=== PATIENT | male | born 1955 | race Caucasian/White ===

== ENCOUNTER 2020-03-27 16:43 | Inpatient (IN) | payer MEDICARE, SELFPAY ==
[2020-03-27] VITALS (11 sets, daily range): BP systolic 111–159; BP diastolic 52–80; PULSE 65–137; RESP 16–20; TEMP 37.5–38.3; O2SAT 93–98; BMI 40.6; BMI 37.2
--- NOTE | 2020-03-27 16:55 | XR_ITS ---
PROCEDURE: XR CHEST PORTABLE CLINICAL HISTORY: weakness COMPARISON: Chest from 04/22/2019 FINDINGS: The cardiomediastinal silhouette and pulmonary vascularity are within normal limits. The lungs are clear without infiltrates, suspicious nodules, or pleural effusions. No acute bony abnormalities. IMPRESSION: No acute findings. Dictated by: Jaspreet Leonard MD 03/28/2020 05:27 Electronically signed by Jaspreet Leonard MD in [place] 03/28/2020 05:27
[2020-03-27 17:16] LABS: Basophils % 0.2 % (0.1-2.0); Chloride 102 mmol/L (98-107); Eosinophils % 0.4 % (0.1-12.0); Hematocrit 36.2 % (42.0-52.0); Hemoglobin 12.2 g/dL (14.1-18.0); Lymphocytes # 0.8 K/mm3 (0.7-4.5); Mean Corpuscular HGB Conc 33.7 g/dL (31.8-35.4); Mean Corpuscular Hemoglobin 27.8 pg (27.0-31.2); Mean Corpuscular Volume 82.4 fl (80-94); Mean Platelet Volume 7.7 fl (7.4-10.4); Monocytes # 0.4 K/mm3 (0.1-1.0); Monocytes % 4.4 % (1.7-9.3); Neutrophils # 7.9 K/mm3 (1.8-7.8); Platelet Count 276 K/mm3 (142-424); Potassium 4.8 mmoL/L (3.5-5.1); Red Blood Count 4.39 M/mm3 (4.60-6.20); Red Cell Distribution Width 14.5 % (11.5-17.5); Sodium 135 mmol/L (136-145); White Blood Count 9.2 K/mm3 (4.8-10.8)
[2020-03-27 17:18] LABS: MANUAL DIFFERENTIAL MANUAL DIFFERENTIAL (MANUAL DIFF)
[2020-03-27 17:19] LABS: Alanine Aminotransferase 17 U/L (12-78); Albumin/Globulin Ratio 1.2 (1.1-1.8); Alkaline Phosphatase 91 U/L (38-126); Anion Gap 17.8 mEq/L (5-15); Aspartate Amino Transferase 22 U/L (17-59); Bilirubin,Total 0.5 mg/dl (0.2-1.3); Blood Urea Nitrogen 30 mg/dl (9-20); Calcium 9.5 mg/dl (8.4-10.2); Carbon Dioxide 20 mmol/L (22.0-30.0); Creatinine Clearance Estimated 140 mL/min (50-200); Estimated Glomerular Filt Rate 84 ml/min (>60); GFR (African American) 102 ML/MIN (>60); Globulin 3.4 g/dL (1.3-3.2); Glucose 170 mg/dl (74-100); Lactic Acid 1.1 mmol/L (0.7-2.1); Total Protein,Serum 7.4 g/dl (6.3-8.2)
[2020-03-27 17:32] LABS: Lymphocytes % 9 % (10-50); Monocytes % 7 % (2-9); Neutrophils % 84 % (42-76); Platelet Estimate Normal; Total Cells Counted 100; Troponin I < 0.01 ng/ml (0.00-0.034)
[2020-03-27 17:33] LABS: RBC Morphology Normal
--- NOTE | 2020-03-27 17:38 | PC.NURSE ---
Spoke with his cousin who helps take care of him and advises she doesn't know for sure what medicines thinks he may have a blood pressure medicine, diabetes medicine, possibly a fluid pill, and something for seizures. She also advises all the pills at his house were laying and he hasn't bee ntaking them. Pt doesn't know what he takes and doesn't know when the last time he took any medicines.
--- NOTE | 2020-03-27 17:54 | ECG_ITS ---
APPROVED REPORT Exam: Resting ECG HR:142 bpm ECG Measurements Heart Rate 142 AXES AR 116 P 52 QRSd 88 QRS 90 QT 330 T 76 QTc 507 <Conclusion> Sinus tachycardia with occasional premature ventricular complexes and fusion complexes Rightward axis Nonspecific ST abnormality Abnormal ECG Electronically signed by : Gustavo Leggett, 03/29/2020 17:08:20
--- NOTE | 2020-03-27 18:14 | PC.NURSE ---
V/S delayed due to pt removing his monitors repeatedly
--- NOTE | 2020-03-27 18:28 | ECG_ITS ---
APPROVED REPORT Exam: Resting ECG HR:135 bpm ECG Measurements Heart Rate 135 AXES OH 118 P 55 QRSd 110 QRS 46 QT 296 T 11 QTc 444 <Conclusion> Ventricular bigeminy Inferior infarct, age undetermined Abnormal ECG Electronically signed by : Gustavo Leggett, 03/29/2020 17:08:08
--- NOTE | 2020-03-27 18:31 | CT_ITS ---
PROCEDURE: CT ANGIO CHEST CLINCIAL INDICATION: SOB, Irregular heart rate COMPARISON: No exams were available for comparison TECHNIQUE: IV Contrast: 70ML OPTIRAY 350 Axial images obtained with sagittal and coronal reformats. All CT scans at the facility use one or more dose reduction, viz: automated exposure control, ma/kV adjustment per patient size (including targeted exams where dose is matched to indication, i.e. head), or iterative reconstruction technique. FINDINGS: HEART AND MEDIASTINAL STRUCTURES: Extensive coronary artery calcification. No evidence of pulmonary embolus or aortic aneurysm or dissection. The LUNGS AND PLEURAL SPACES: Patchy ground-glass opacity involves the posterior aspect of the left upper lobe posteriorly and could represent an area of scarring or small area of pneumonitis. BONY STRUCTURES: Degenerative changes thoracic spine with bridging osteophytes in the lower thoracic spine UPPER ABDOMEN: Unremarkable. ADDITIONAL FINDINGS: No other significant abnormalities. IMPRESSION: 1. No evidence of pulmonary embolus. 2. Patchy ground-glass density left upper lobe which could be due to small area of scarring or infiltrate. Dictated by: Jaspreet Leonard MD 03/28/2020 08:04 Electronically signed by Jaspreet Leonard MD in [place] 03/28/2020 08:04
--- NOTE | 2020-03-27 18:35 | PC.NURSE ---
EKG sent to Dr Thapa per Dr Santana request. Dr Thapa responds that it is not a stemi
--- NOTE | 2020-03-27 18:38 | PC.NURSE ---
Pt to rad.
--- NOTE | 2020-03-27 18:50 | PC.NURSE ---
speaking with Dr. Thapa
[2020-03-27 19:06] LABS: ABG Base Excess -7.5 mmol/L (-2.4-2.3); ABG HCO3 17.1 mmhg (22.0-26.0); ABG Oxygen Saturation 96 % (90-100); ABG PCO2 27.3 mmhg (35.0-45.0); ABG PH 7.41 mmol/L (7.35-7.45); ABG PO2 83.3 mmhg (80-100); ABG TCO2 17.9 mmhg (23-27)
[2020-03-27 19:09] LABS: Allen's Test Acceptable; Oxygen room air %; Source Right Radial
[2020-03-27 19:14] LABS: Microscopic, Urine URINE MICROSCOPIC (MICROSCOPIC)
[2020-03-27 19:16] LABS: Appearance,Urine CLEAR (Clear); Bilirubin,Urine Negative (Negative); Blood, Urine Negative (Negative); Color,Urine YELLOW (Yellow); Glucose,Urine (UA) Negative (Negative); Ketones,Urine Negative (Negative); Leukocyte Esterase,Urine Negative (Negative); Nitrate,Urine Negative (Negative); PH,Urine 5.5 (5.0-8.5); Protein,Urine Negative (Negative); Specific Gravity, Urine 1.025 (1.005-1.030); Urobilinogen,Urine 0.2 EU/dl (0.2)
[2020-03-27 19:19] LABS: NT Pro Brain Natriuretic Pep. 515 pg/mL (0-125)
--- NOTE | 2020-03-27 19:40 | HMH.EDWEAK ---
ED Disposition Clinical Impression: Atrial flutter, Uncontrolled diabetes mellitus, Cellulitis, SIRS (systemic inflammatory response syndrome), Fever, Fatigue, Malaise Disposition: Admitted as Observation Condition on Discharge: Good Referrals: John Paul Orellana [Primary Care Provider] - - Critical Care Critical Care Time: No Attestation: On 03/27/20, the high probability of a clinically significant, sudden or life threatening deterioration of the following system(s) required my full and direct attention, intervention and personal management. The time I documented below is in addition to time spent performing reported procedures but includes the following listed in this critical care notation. Medical Decision Making - Medical Records Medical records reviewed: Yes: I reviewed the patient's medical records. - Lex Inquiry Pt receiving controlled substance: No Vital Signs: 03/27/20 16:46 03/27/20 18:17 03/27/20 18:29 Temperature 101.0 F H Temperature Source Rectal Pulse Rate [Right] 65 137 H 136 H Respiratory Rate 16 Blood Pressure [Right Arm] 158/75 H 143/80 H 159/75 H Blood Pressure Mean [Right Arm] 102 101 103 Blood Pressure Source [Right Arm] Automatic Cuff Automatic Cuff Automatic Cuff Blood Pressure Position [Right Arm] Sitting Sitting Sitting 02 Sat by Pulse Oximetry 98 93 L 98 Oxygen Delivery Method Room Air Room Air Room Air 03/27/20 19:54 Temperature Temperature Source Pulse Rate [Right] 104 H Respiratory Rate 16 Blood Pressure [Right Arm] 116/70 Blood Pressure Mean [Right Arm] 85 Blood Pressure Source [Right Arm] Automatic Cuff Blood Pressure Position [Right Arm] Sitting 02 Sat by Pulse Oximetry 95 Oxygen Delivery Method Room Air - Lab Data Lab results reviewed: Yes: I reviewed the patient's lab results. Lab Results 03/27/20 17:00: WBC 9.2, RBC 4.39 L, Hgb 12.2 L, Hct 36.2 L, MCV 82.4, MCH 27.8, MCHC 33.7, RDW 14.5, Plt Count 276, MPV 7.7, Neut % (Auto) 86.0 H, Lymph % (Auto) 9.0 L, [place] % (Auto) 4.4, Eos % (Auto) 0.4, Baso % (Auto) 0.2, Neut # (Auto) 7.9 H, Lymph # (Auto) 0.8, [place] # (Auto) 0.4, Eos # (Auto) 0.0, Baso # (Auto) 0.0, Total Counted 100, Neutrophils % (Manual) 84 H, Lymphocytes % (Manual) 9 L, Monocytes % (Manual) 7, Platelet Estimate Normal, RBC Morphology Normal 03/27/20 17:00: Sodium 135 L, Potassium 4.8, Chloride 102, Carbon Dioxide 20 L, Anion Gap 17.8 H, BUN 30 H, Creatinine 0.90, Estimated Creat Clear 140, Estimated GFR 84, Est GFR ( Amer) 102, Glucose 170 H, Calcium 9.5, Total Bilirubin 0.5, AST 22, ALT 17, Alkaline Phosphatase 91, Troponin I < 0.01, Total Protein 7.4, Albumin 4.0, Globulin 3.4 H, Albumin/Globulin Ratio 1.2 03/27/20 17:00: Lactate 1.1 03/27/20 17:00: NT-Pro-B Natriuret Pep 515 H 03/27/20 18:48: Specimen Source Right radial, O2 % room air, ABG pH 7.41, ABG pCO2 27.3 L, ABG pO2 83.3, ABG HCO3 17.1 L, ABG Total CO2 17.9 L, ABG O2 Saturation 96, ABG Base Excess -7.5 L, Jaspreet Test Acceptable 03/27/20 19:05: Urine Color Yellow, Urine Appearance Clear, Urine pH 5.5, Ur Specific [place] 1.025, Urine Protein Negative, Urine Glucose (UA) Negative, Urine Ketones Negative, Urine Blood Negative, Urine Nitrate Negative, Urine Bilirubin Negative, Urine Urobilinogen 0.2, Ur Leukocyte Esterase Negative, Urine RBC None, Urine WBC 3-5, Ur Squamous Epith Cells Occasional, Urine Bacteria Trace Result diagrams: 03/27/20 17:00 03/27/20 17:00 Orders (Tests/Meds): ED MEDICATIONS Generic Name Dose Route Start Last Admin Trade Name Freq PRN Reason Stop Dose Admin Sodium Chloride 1,000 mls @ 999 mls/hr 03/27/20 17:45 03/27/20 17:46 Sod Chlor 0.9% 1000ml Bag IV 03/27/20 18:45 999 mls/hr .Q1H1M DEEPTI Administration Piperacillin Sod/Tazobactam 50 mls @ 100 mls/hr 03/27/20 19:00 03/27/20 19:20 Sod 3.375 gm/ Sodium Chloride IV 04/10/20 18:59 100 mls/hr Q8H DEEPTI Administration Protocol Sodium Chloride 10 ml 03/27/20 18:31 Sodium Chloride 0.9% 10
[2020-03-27 19:58] LABS: Bacteria,Urine Trace /lpf; Squamous Epithelial Cell,Urine Occasional #/hpf (0-5)
--- NOTE | 2020-03-27 20:07 | PC.NURSE ---
Awaiting covid results for pt admission.
--- NOTE | 2020-03-27 20:08 | PC.NURSE ---
spoke with calixto for pt admisison details
[2020-03-27 20:20] LABS: Adenovirus,PCR Not Detected (NotDetected); Bordetella Pertussis Not Detected (NotDetected); Chlamydophila Pneumoniae, PCR Not Detected (NotDetected); Coronavirus 19, PCR Not Detected (NotDetected); Coronavirus 229E Not Detected (NotDetected); Coronavirus NL63 Not Detected (NotDetected); Coronavirus OC43 Not Detected (NotDetected); Coronovirus HKU1,PCR Not Detected (NotDetected); Human Metapneumovirus Not Detected (NotDetected); Influenza A, PCR Not Detected (NotDetected); Influenza AH1, 2009 Not Detected (NotDetected); Influenza AH1, PCR Not Detected (NotDetected); Influenza AH3,PCR Not Detected (NotDetected); Influenza B, PCR Not Detected (NotDetected); Mycoplasma Pneumoniae, PCR Not Detected (NotDected); Parainfluenza 1, PCR Not Detected (NotDetected); Parainfluenza 2, PCR Not Detected (NotDetected); Parainfluenza 3, PCR Not Detected (NotDetected); Parainfluenza 4, PCR Not Detected (NotDetected); Respiratory Syncytial Virus Not Detected (NotDetected); Rhinovirus/Enterovirus Not Detected (NotDetected)
[2020-03-27 20:47] LABS: Hemoglobin A1C 7.2 % (4.0-6.0)
[2020-03-27 20:50] LABS: Troponin I < 0.01 ng/ml (0.00-0.034)
--- NOTE | 2020-03-27 22:28 | PC.NURSE ---
Pt's contact is Yaa Thornton Password is Amna
--- NOTE | 2020-03-27 22:37 | PC.NURSE ---
Pt confused and pulled left AC IV out disconnected all his lines and was attempting to get out of bed.
--- NOTE | 2020-03-27 22:58 | PC.NURSE ---
pt arrived from ed via stretcher
--- NOTE | 2020-03-27 23:36 | HMH.HP ---
*Admission Date: 03/27/20 *Chief complaint: fever *History of present illness: this pt presented to [facility] ed - -year-old male comes in complaining of some generalized weakness and fatigue for the last 7 days however patient does state he has felt weak and fatigue since last April. Patient does state with his new onset of weakness has been about 7 days. He states he does not have any pain anywhere except his lower extremities where he does have some mild erythema of the lower extremities with some sores that are healing. Patient cannot remember what meds he is taking or what his real medical history is. Patient is alert and oriented x4 however he is noncompliant with medications. Patient does not complain of any chest pain nor shortness of breath. But patient does complain of fever shakes and chills and does complain of fatigue. Patient denies any recent sore throat or headache. Patient denies any loss of smell or taste. Patient does have nausea with one episode of vomiting.pt with prob a flutter with pvc and was admitted with ivf and abx - [facility] History I have reviewed the patient's past medical history: Yes Medical History: Reports:: Diabetes Mellitus Type 2 *Have you ever received a pneumonia vaccine?: No *Have you received a flu vaccine this season?: No - *Social History Alcohol Intake: never *Occupational Status:: unemployed *Travel in the last 8 weeks: None Family Hx:: No significant family history Review of Systems - Review of Systems Review of systems:: pertinent systems reviewed and negative unless documented below - Constitutional Reports fever(s) - Eyes Denies change in vision - ENT Denies sore throat - *Cardiovascular Reports fast heart rate, Denies chest pain at rest, Denies shortness of breath - *Respiratory Denies cough - *Gastrointestinal Denies abdominal pain - *Genitourinary Denies blood in urine - *Musculoskeletal Denies joint pain - Integumentary/Breasts Denies rash, Denies other (changes to lower ext ) - *Neurologic Denies localized weakness, Denies seizure-like activity - Psychiatric Denies anxiety Meds Home Medications Medication Instructions Recorded Confirmed Type Amlodipine Besylate 10 mg PO DAILY 04/22/19 03/27/20 History Aspirin [Aspirin 81mg EC Tab] 81 mg PO DAILY 04/22/19 03/27/20 History Atorvastatin Calcium [Atorvastatin 40 mg PO HS 04/22/19 03/27/20 History 40mg Tab] Benazepril HCl 40 mg PO DAILY 04/22/19 03/27/20 History Ibuprofen [Ibuprofen 800mg 800 mg PO TIDP PRN 04/22/19 03/27/20 History Tablet] Metformin HCl [Metformin 1000mg 1,000 mg PO BID 04/22/19 03/27/20 History Tablets] lamoTRIgine [Lamotrigine] 200 mg PO BID 04/22/19 03/27/20 History Baclofen 20 mg PO DAILY 03/27/20 03/27/20 History Furosemide [Furosemide 40MG tAB] 40 mg PO DAILY 03/27/20 03/27/20 History Metoprolol Succinate [Metoprolol 25 mg PO DAILY 03/27/20 03/27/20 History Succinate 25mg Tablet*] diazePAM [diazePAM 5mg Tablet] 5 mg PO BID 03/27/20 03/27/20 History glipiZIDE [Glipizide] 10 mg PO BID 03/27/20 03/27/20 History ondansetron HCL [Ondansetron HCl] 4 mg PO NEEDED PRN 03/27/20 03/27/20 History Allergies Allergy/AdvReac Type Severity Reaction Status Date / Time acetaminophen [From LORTAB] Allergy Unknown NA-NAUSEA/V Verified 04/22/19 20:53 OMITING hydrocodone [From LORTAB] Allergy Unknown NA-NAUSEA/V Verified 04/22/19 20:53 OMITING Exam Vital signs and Labs for Last 24 Hours: Temp Pulse Resp BP Pulse Ox 100.6 F H 126 H 20 123/52 L 97 03/27/20 22:58 03/27/20 22:58 03/27/20 22:58 03/27/20 22:58 03/27/20 22:58 Laboratory Results - last 24 hr 03/27/20 17:00: WBC 9.2, RBC 4.39 L, Hgb 12.2 L, Hct 36.2 L, MCV 82.4, MCH 27.8, MCHC 33.7, RDW 14.5, Plt Count 276, MPV 7.7, Neut % (Auto) 86.0 H, Lymph % (Auto) 9.0 L, [place] % (Auto) 4.4, Eos % (Auto) 0.4, Baso % (Auto) 0.2, Neut # (Auto) 7.9 H, Lymph # (Auto) 0.8, [place] # (Auto) 0.4
[2020-03-27 23:56] LABS: Troponin I < 0.01 ng/ml (0.00-0.034)
[2020-03-28] VITALS (9 sets, daily range): BP systolic 136–144; BP diastolic 71–77; PULSE 70–110; RESP 18–20; TEMP 36.8–37.1; O2SAT 97–99; BMI 37.0
--- NOTE | 2020-03-28 03:55 | PC.NURSE ---
Pt arrived to the floor at [id number]. Pt unable to answer questions regarding home medications. Pt stated I don't know what I take. and I can't remember the last time I took everything. Medication list compiled from ER used. Pt complained of pain from the knees down x1 this shift. MD Fields notified of pt's complaint, MD advised to give PRN Acetaminophen. In pt's allergy list Acetaminophen is listed due to adverse reactions to lortab. MD was aware and stated it was fine to give pt the PRN acetaminophen. Multiple scabs and lesions on bilateral LE noted. Pictures and photo consent form are in pt's chart. Pt is currently in bed, sleeping. Call light is within reach, seizure pads in place with no seizure activity noted. No complaints at this time, will continue to monitor.
[2020-03-28 05:38] LABS: POC Glucose,Bedside 162 (70-110)
[2020-03-28 06:28] LABS: Basophils % 0.4 % (0.1-2.0); Eosinophils % 0.3 % (0.1-12.0); Hematocrit 36.7 % (42.0-52.0); Hemoglobin 12.3 g/dL (14.1-18.0); Lymphocytes # 0.9 K/mm3 (0.7-4.5); Lymphocytes % 10.7 % (10-50); Mean Corpuscular HGB Conc 33.4 g/dL (31.8-35.4); Mean Corpuscular Hemoglobin 28.1 pg (27.0-31.2); Mean Platelet Volume 8.1 fl (7.4-10.4); Monocytes # 0.4 K/mm3 (0.1-1.0); Monocytes % 5.2 % (1.7-9.3); Neutrophils % 83.4 % (37.0-80.0); Platelet Count 222 K/mm3 (142-424); Red Blood Count 4.37 M/mm3 (4.60-6.20); Red Cell Distribution Width 14.7 % (11.5-17.5); White Blood Count 8.4 K/mm3 (4.8-10.8)
[2020-03-28 06:30] LABS: Blood Urea Nitrogen 24 mg/dl (9-20); Calcium 9.1 mg/dl (8.4-10.2); Carbon Dioxide 22 mmol/L (22.0-30.0); Chloride 105 mmol/L (98-107); Chol/HDL Ratio 3.5 (1-3.5); Cholesterol 137 mg/dl (140-200); Creatinine Clearance Estimated 128 mL/min (50-200); Estimated Glomerular Filt Rate 97 ml/min (>60); GFR (African American) 117 ML/MIN (>60); Glucose 162 mg/dl (74-100); HDL Cholesterol 39 mg/dl (40-60); Magnesium 1.6 mg/dl (1.6-2.3); Sodium 137 mmol/L (136-145); Triglycerides 107 mg/dl (30-150); VLDL Cholesterol 21 mg/dL (0-40)
[2020-03-28 06:40] LABS: Direct LDL Cholesterol 69.92 mg/dL (100-129)
--- NOTE | 2020-03-28 06:48 | HMH.PHAVTE ---
[facility] Pharmacy VTE Monitoring - Patient Demographics Admission date: 03/27/20 Report Date: 03/28/20 Time: 06:48 Allergies/Adverse Reactions: Patient Allergies acetaminophen [From LORTAB] Allergy (Unknown, Verified 04/22/19 20:53) NA-NAUSEA/VOMITING hydrocodone [From LORTAB] Allergy (Unknown, Verified 04/22/19 20:53) NA-NAUSEA/VOMITING Height: 1.83 m Weight: 124.2 kg Patient Problems: Current Active Problems Atrial flutter (Acute) Uncontrolled diabetes mellitus (Acute) Cellulitis (Acute) SIRS (systemic inflammatory response syndrome) (Acute) Fever (Acute) Fatigue (Acute) Malaise (Acute) Acute febrile illness (Acute) Diabetes mellitus (Acute) - VTE Risk Labs: VTE Related Lab Results Hgb 12.3 g/dL (14.1-18.0) L 03/28/20 05:56 Hct 36.7 % (42.0-52.0) L 03/28/20 05:56 Plt Count 222 K/mm3 (142-424) 03/28/20 05:56 BUN 24 mg/dl (9-20) H 03/28/20 05:56 Creatinine 0.80 mg/dl (0.66-1.25) 03/28/20 05:56 Estimated Creat Clear 128 mL/min (50-200) 03/28/20 05:56 - Prophylaxis VTE Prophylaxis Ordered?: Yes Types of VTE Prophylaxis: TEDS Knee High Location of Applied Device: Bilateral Lower Extremeties - VTE Diagnosis Confirmed Treatment or plan recommended: Continue Current Treatment
--- NOTE | 2020-03-28 07:39 | HMH.PHAINT ---
MEDICATION RECONCILIATION COMPLETED BY USING EXTERNAL FILL HISTORY
--- NOTE | 2020-03-28 08:00 | CA_ITS ---
APPROVED REPORT EXAM: Comprehensive 2D, Doppler, and color-flow Echocardiogram King Maker: Siobhan Sun CRT Ht: 6 ft 0 in Wt: 300lbs BSA: 2.53 BP: 114/75 mmHg Indications: Murmur, Atrial Fibrillation, Diabetes, Fatigue 2D Dimensions LVOT 2.04 cm (M/F) 1.5-2.5 M-Mode Dimensions RVDd 3.29 cm (0.9-2.6) LVDd 4.47 cm (3.5-5.7) LVDs 3.37 cm (3.5-5.7) IVSd 0.96 cm (0.6-1.1) PWd 1.01 cm (0.6-1.1) EF (Teich) 49.00% FS 24.60% EDV (Teich) 91.00 mL ESV (Teich) 46.40 mL LV Diastology E/A Ratio 0.72 Mitral Valve MV A Velocity 105.00 (40-130 cm/s) Left Ventricle Technically very difficult study because of the patient fact in poor acoustic windows. Left atrium is mildly enlarged, left ventricle is normal size, visually estimated ejection fraction 55% with no regional wall motion abnormality, endocardial surfaces are poorly visualized, diastolic parameters are inconclusive. Right Ventricle Right atrium and right ventricle mildly enlarged with normal contractility. Aortic Valve Aortic valve is not well visualized, Doppler of the aortic valve is not indicated above aortic stenosis or aortic insufficiency. Mitral Valve Mitral valve leaflets are minimally thickened, there is mild mitral regurgitation. Tricuspid Valve Tricuspid valve is grossly normal, there is mild tricuspid regurgitation, tricuspid regurgitation jet velocity is inadequate for calculation of the right ventricular systolic pressure. Pulmonic Valve Pulmonic valve is poorly visualized. Great Vessels Aortic root is normal size. Pericardium Trivial pericardial effusion noted. Conclusion 1. Technically very difficult study because of the patient factors and poor acoustic windows. 2. Mild biatrial enlargement, normal left ventricular size, likely preserved left ventricular systolic function, visually estimated ejection fraction 55% with no regional wall motion abnormality, endocardial surfaces are poorly visualized. 3. Mildly enlarged right ventricle with normal contractility. 4. Mild mitral and tricuspid regurgitation. 5. Trivial pericardial effusion noted. Electronically signed by : Galdino Tobin, 03/28/2020 14:11:22
--- NOTE | 2020-03-28 08:07 | HMH.CNCARD ---
History of Present Illness Consult date: 03/28/20 Requesting physician: Britton Fields Chief complaint: weakness Additional Medical History:: 1. DM 2. HTN 3. HLD 4. CAD A. History of coronary stent per patient 5. Seizure Disorder 6. A. flutter with RVR, 03/2020 History of present illness: this pt presented to [facility] ed - -year-old male comes in complaining of some generalized weakness and fatigue for the last 7 days however patient does state he has felt weak and fatigue since last April. Patient does state with his new onset of weakness has been about 7 days. He states he does not have any pain anywhere except his lower extremities where he does have some mild erythema of the lower extremities with some sores that are healing. Patient cannot remember what meds he is taking or what his real medical history is. Patient is alert and oriented x4 however he is noncompliant with medications. Patient does not complain of any chest pain nor shortness of breath. But patient does complain of fever shakes and chills and does complain of fatigue. Patient denies any recent sore throat or headache. Patient denies any loss of smell or taste. Patient does have nausea with one episode of vomiting.pt with prob a flutter with pvc and was admitted with ivf and abx The above per Dr. Fields Patient's EKG in the ER yesterday was felt to represent atrial flutter at which time the patient was given IV beta-andre therapy with improvement in rate. Patient's heart rate continues in the 100-110 range with frequent ventricular bigeminy. Patient denies any chest pain, pressure or tightness. He does relate history of ventricular arrhythmias in the past as well as coronary artery disease requiring coronary stenting. He is very poor historian regarding his medical history. He has a remote history of tobacco use discontinued 15 years ago and has been a diabetic for at least 10 years. Troponins overnight have returned normal. [facility] History Medical History: Reports:: Arrhythmia, Diabetes Mellitus Type 2, Hyperlipidemia, Hypertension *Have you ever received a pneumonia vaccine?: Yes *Have you received a flu vaccine this season?: Yes - *Social History Smoking Status: Former smoker Tobacco Type: cigarettes Smoking End Date: 03/13/2005 Alcohol Intake: former Alcohol Intake Frequency:: holidays/special occasions only Substance Use Type: marijuana Last Used Substance: days (ago) *Occupational Status:: retired *Travel in the last 8 weeks: None Family Hx:: No significant family history Meds Home Medications Medication Instructions Recorded Confirmed Type Amlodipine Besylate 10 mg PO DAILY 04/22/19 03/27/20 History Aspirin [Aspirin 81mg EC Tab] 81 mg PO DAILY 04/22/19 03/27/20 History Atorvastatin Calcium [Atorvastatin 40 mg PO HS 04/22/19 03/27/20 History 40mg Tab] Benazepril HCl 40 mg PO DAILY 04/22/19 03/27/20 History Ibuprofen [Ibuprofen 800mg 800 mg PO TIDP PRN 04/22/19 03/27/20 History Tablet] Metformin HCl [Metformin 1000mg 1,000 mg PO BID 04/22/19 03/27/20 History Tablets] lamoTRIgine [Lamotrigine] 200 mg PO BID 04/22/19 03/27/20 History Baclofen 20 mg PO TID 03/27/20 03/28/20 History Furosemide [Furosemide 40MG tAB] 40 mg PO DAILY 03/27/20 03/27/20 History Metoprolol Succinate [Metoprolol 25 mg PO DAILY 03/27/20 03/27/20 History Succinate 25mg Tablet*] diazePAM [diazePAM 5mg Tablet] 5 mg PO BID 03/27/20 03/27/20 History glipiZIDE [Glipizide] 5 mg PO BID 03/27/20 03/28/20 History Allergies Allergy/AdvReac Type Severity Reaction Status Date / Time acetaminophen [From LORTAB] Allergy Unknown NA-NAUSEA/V Verified 04/22/19 20:53 OMITING hydrocodone [From LORTAB] Allergy Unknown NA-NAUSEA/V Verified 04/22/19 20:53 OMITING Review of Systems - Review of Systems Review of systems:: pertinent systems reviewed and negative unless documented below - *Cardiovascular Reports rapid, pounding, or irregular h
--- NOTE | 2020-03-28 08:50 | HMH.ACPN2 ---
Internal Medicine - PN: Subj *Date: 03/28/20 *Time: 08:00 Interval history: Patient laying in bed states he lives alone at home. Exam Vital signs and Labs for Last 24 Hours: Temp Pulse Resp BP Pulse Ox 98.3 F 90 18 143/71 H 97 03/28/20 08:00 03/28/20 08:09 03/28/20 08:00 03/28/20 08:00 03/28/20 08:00 Laboratory Results - last 24 hr 03/27/20 17:00: WBC 9.2, RBC 4.39 L, Hgb 12.2 L, Hct 36.2 L, MCV 82.4, MCH 27.8, MCHC 33.7, RDW 14.5, Plt Count 276, MPV 7.7, Neut % (Auto) 86.0 H, Lymph % (Auto) 9.0 L, [place] % (Auto) 4.4, Eos % (Auto) 0.4, Baso % (Auto) 0.2, Neut # (Auto) 7.9 H, Lymph # (Auto) 0.8, [place] # (Auto) 0.4, Eos # (Auto) 0.0, Baso # (Auto) 0.0, Total Counted 100, Neutrophils % (Manual) 84 H, Lymphocytes % (Manual) 9 L, Monocytes % (Manual) 7, Platelet Estimate Normal, RBC Morphology Normal 03/27/20 17:00: Sodium 135 L, Potassium 4.8, Chloride 102, Carbon Dioxide 20 L, Anion Gap 17.8 H, BUN 30 H, Creatinine 0.90, Estimated Creat Clear 140, Estimated GFR 84, Est GFR ( Amer) 102, Glucose 170 H, Calcium 9.5, Total Bilirubin 0.5, AST 22, ALT 17, Alkaline Phosphatase 91, Troponin I < 0.01, Total Protein 7.4, Albumin 4.0, Globulin 3.4 H, Albumin/Globulin Ratio 1.2 03/27/20 17:00: Lactate 1.1 03/27/20 17:00: NT-Pro-B Natriuret Pep 515 H 03/27/20 17:00: Hemoglobin A1c 7.2 H 03/27/20 18:48: Specimen Source Right radial, O2 % room air, ABG pH 7.41, ABG pCO2 27.3 L, ABG pO2 83.3, ABG HCO3 17.1 L, ABG Total CO2 17.9 L, ABG O2 Saturation 96, ABG Base Excess -7.5 L, Jaspreet Test Acceptable 03/27/20 19:05: Urine Color Yellow, Urine Appearance Clear, Urine pH 5.5, Ur Specific [place] 1.025, Urine Protein Negative, Urine Glucose (UA) Negative, Urine Ketones Negative, Urine Blood Negative, Urine Nitrate Negative, Urine Bilirubin Negative, Urine Urobilinogen 0.2, Ur Leukocyte Esterase Negative, Urine RBC None, Urine WBC 3-5, Ur Squamous Epith Cells Occasional, Urine Bacteria Trace 03/27/20 20:00: Troponin I < 0.01 03/27/20 20:00: Chlamy pneumoniae PCR Not detected, Adenovirus (PCR) Not detected, B. pertussis DNA (PCR) Not detected, Coronavirus OC43 (PCR) Not detected, Coronavirus HKU1 (PCR) Not detected, Coronavirus 229E (PCR) Not detected, COVID-19 PCR Not detected, Coronavirus NL63 (PCR) Not detected, Human Metapneumovir PCR Not detected, Influenza A (H1) PCR Not detected, Influ A (H1N1/09) PCR Not detected, Influenza A (H3) PCR Not detected, Influenza Type A (PCR) Not detected, Influenza Type B (PCR) Not detected, M. pneumoniae (PCR) Not detected, Parainfluenza 1 (PCR) Not detected, Parainfluenza 2 (PCR) Not detected, Parainfluenza 3 (PCR) Not detected, Parainfluenza 4 (PCR) Not detected, RSV (PCR) Not detected, Entero/Rhino (PCR) Not detected 03/27/20 23:25: Troponin I < 0.01 03/28/20 05:06: POC Glucose 162 H 03/28/20 05:56: WBC 8.4, RBC 4.37 L, Hgb 12.3 L, Hct 36.7 L, MCV 84.0, MCH 28.1, MCHC 33.4, RDW 14.7, Plt Count 222, MPV 8.1, Neut % (Auto) 83.4 H, Lymph % (Auto) 10.7, [place] % (Auto) 5.2, Eos % (Auto) 0.3, Baso % (Auto) 0.4, Neut # (Auto) 7.0, Lymph # (Auto) 0.9, [place] # (Auto) 0.4, Eos # (Auto) 0.0, Baso # (Auto) 0.0 03/28/20 05:56: Sodium 137, Potassium 4.0, Chloride 105, Carbon Dioxide 22, Anion Gap 14.0, BUN 24 H, Creatinine 0.80, Estimated Creat Clear 128, Estimated GFR 97, Est GFR ( Amer) 117, Glucose 162 H, Calcium 9.1, Magnesium 1.6, Triglycerides 107, Cholesterol 137 L, LDL Cholesterol Direct 69.92 L, VLDL Cholesterol 21, HDL Cholesterol 39 L, Cholesterol/HDL Ratio 3.5 I & O for Last 24 hours: Intake & Output 03/25/20 03/26/20 03/27/20 03/28/20 11:59 11:59 11:59 11:59 Intake Total 1589 / 1589 Output Total 4500 / 4500 Balance -2911 / -2911 Weight 273 lb 13.026 oz - Constitutional no acute distress, chronically ill appearing - *Routine HEENT Exam Head: Present: normocephalic Eye: Present: PERRL ENT: Present: mucous membranes moist - *Routine Neck Exam Present: supple. Absent: lymphadenopathy
--- NOTE | 2020-03-28 09:20 | XR_ITS ---
PROCEDURE: XR FOOT WT BEARING RT 3V CLINICAL INDICATION: CELLULITIS Diabetic ulcers COMPARISON: No exams were available for comparison FINDINGS: No fracture or dislocation. No lytic or blastic change. There is normal mineralization. Mild bony hypertrophic change at the neck of the talus anteriorly. No bony erosive changes. Mild osteoarthritis 1st interphalangeal joint and 1st MTP joint Other findings:None. IMPRESSION: No acute findings. Dictated by: Jaspreet Leonard MD 03/28/2020 10:40 Electronically signed by Jaspreet Leonard MD in [place] 03/28/2020 10:40
--- NOTE | 2020-03-28 09:24 | PC.NURSE ---
PT IS NPO AFTER MIDNIGHT R/T FASTING A1C. PT CAN RESUME DIABETIC DIET AFTER LABS
--- NOTE | 2020-03-28 09:27 | XR_ITS ---
PROCEDURE: XR FOOT LT MIN 3V CLINICAL INDICATION: DM sores b/l LE Diabetic ulcers COMPARISON: No exams were available for comparison FINDINGS: No fracture or dislocation. No lytic or blastic change. There is normal mineralization. The joint spaces are well-preserved. No significant degenerative/arthritic changes. No erosive changes evident. Other findings:Mild vascular calcification IMPRESSION: No acute findings. Dictated by: Jaspreet Leonard MD 03/28/2020 10:28 Electronically signed by Jaspreet Leonard MD in [place] 03/28/2020 10:28
--- NOTE | 2020-03-28 09:32 | US_ITS ---
APPROVED REPORT Exam Type: Lower Extremity Segmental Pressures Clothing Patternmaker: Lisa Saez RDCS Indications Non-healing Ulcer: Rest Pain: Edema PAD CAD Risk Factors Hypertension CAD Hyperlipidemia Obesity Diabetes Pressures/Indices Right Indices Left Indices Brachial 120.00 mmHg Brachial 117.00 mmHg Low Thigh 137.00 mmHg 1.14 Low Thigh 141.00 mmHg 1.18 Calf 0.00 mmHg 0.00 Calf 173.00 mmHg 1.44 Ankle(PT) 171.00 mmHg 1.43 Ankle(PT) 165.00 mmHg 1.38 Ankle(DP) 169.00 mmHg 1.41 Ankle(DP) 173.00 mmHg 1.44 Digit 70.00 mmHg 0.58 Digit 71.00 mmHg 0.59 Findings R EBENEZER 1.4 L EBENEZER 1.4 R TBI .6 L TBI .6 NORMAL PULSES NORMAL WAVEFORMS Conclusion R EBENEZER 1.4 L EBENEZER 1.4 R TBI .6 L TBI .6 NORMAL PULSES NORMAL WAVEFORMS Elevated EBENEZER bilateral suggesting hardening of the arteries from PVD Electronically signed by : Jaspreet Leonard MD 03/28/2020 15:46:38
--- NOTE | 2020-03-28 09:53 | PC.NURSE ---
[facility] CONTACTED BY THIS RN AND MEDICATION LIST FAXED TO [facility]. HOME MEDS CONFIRMED AND LIST UPDATED
[2020-03-28 10:30] LABS: C-Reactive Protein 107.9 mg/L (0-4)
[2020-03-28 10:42] LABS: Erythrocyte Sedimentation Rate 51 mm/hr (0-20)
[2020-03-28 10:57] LABS: POC Glucose,Bedside 175 (70-110)
--- NOTE | 2020-03-28 13:47 | HMH.ORTHOCON ---
*Admission Date: 03/27/20 *Reason for consult:: B/L LE Cellulitis *History of present illness: Mr. Pool is a 65-year-old diabetic male who presented to [facility] ED with complaints of generalized weakness and fatigue for over a week. He was evaluated by cardiology. Patient is a poor historian but states he has seen a commissioned police officer in the past several months or years ago, I am not sure . Patient states the commissioned police officer was female from [place]. He reports self care with Unna boots occasionally and trying to trim his own toenails. He states he has 3 [place] hounds and the dogs shed everywhere . He has jerking to the legs , left worse than the right. He reports numbness and burning from both knees down. He has a remote history of tobacco use discontinued 15 years ago and has been a diabetic for at least 10 years. He denies N/V, F/C currently. Review of Systems - Review of Systems Review of systems:: pertinent systems reviewed and negative unless documented below - Constitutional Reports lack of energy - Eyes Denies change in vision - ENT Denies abnormal hearing - *Cardiovascular Denies chest pain, Denies shortness of breath - *Gastrointestinal Denies vomiting - *Genitourinary Denies difficulty urinating - *Musculoskeletal Reports muscle cramps, Reports numbness, Reports stiffness, Reports tingling - Integumentary/Breasts Reports hair loss, Reports change in hair, Reports nail changes, Reports dry skin, Reports skin ulcer, Reports sores, Reports wounds - *Neurologic Denies localized weakness, Denies seizure-like activity - Psychiatric Denies abnormal sleep pattern - Endocrine Denies cold intolerance - Allergic/Immunologic Reports GI upset with certain foods [facility] History I have reviewed the patient's past medical history: Yes Medical History: Reports:: Arrhythmia, Diabetes Mellitus Type 2, Hyperlipidemia, Hypertension *Have you ever received a pneumonia vaccine?: Yes *Have you received a flu vaccine this season?: Yes - *Social History Smoking Status: Former smoker Tobacco Type: cigarettes Smoking End Date: 03/13/2005 Alcohol Intake: former Alcohol Intake Frequency:: holidays/special occasions only Substance Use Type: marijuana Last Used Substance: days (ago) *Occupational Status:: retired *Travel in the last 8 weeks: None Family Hx:: No significant family history Meds Home Medications Medication Instructions Recorded Confirmed Type Amlodipine Besylate 10 mg PO DAILY 04/22/19 03/28/20 History Aspirin [Aspirin 81mg EC Tab] 81 mg PO DAILY 04/22/19 03/28/20 History Atorvastatin Calcium [Atorvastatin 40 mg PO HS 04/22/19 03/28/20 History 40mg Tab] Benazepril HCl 40 mg PO DAILY 04/22/19 03/28/20 History Ibuprofen [Ibuprofen 800mg 800 mg PO TIDP PRN 04/22/19 03/28/20 History Tablet] Metformin HCl [Metformin 1000mg 1,000 mg PO BID 04/22/19 03/28/20 History Tablets] lamoTRIgine [Lamotrigine] 200 mg PO BID 04/22/19 03/28/20 History Baclofen 20 mg PO TID 03/27/20 03/28/20 History Furosemide [Furosemide 40MG tAB] 40 mg PO DAILY 03/27/20 03/28/20 History Metoprolol Succinate [Metoprolol 25 mg PO DAILY 03/27/20 03/28/20 History Succinate 25mg Tablet*] diazePAM [diazePAM 5mg Tablet] 5 mg PO BID 03/27/20 03/28/20 History glipiZIDE [Glipizide] 5 mg PO BID 03/27/20 03/28/20 History Allergies Allergy/AdvReac Type Severity Reaction Status Date / Time acetaminophen [From LORTAB] Allergy Unknown NA-NAUSEA/V Verified 04/22/19 20:53 OMITING hydrocodone [From LORTAB] Allergy Unknown NA-NAUSEA/V Verified 04/22/19 20:53 OMITING Exam Vital signs and Labs for Last 24 Hours: Temp Pulse Resp BP Pulse Ox 98.3 F 90 18 143/71 H 97 03/28/20 08:00 03/28/20 08:09 03/28/20 08:00 03/28/20 08:00 03/28/20 08:00 Laboratory Results - last 24 hr 03/27/20 17:00: WBC 9.2, RBC 4.39 L, Hgb 12.2 L, Hct 36.2 L, MCV 82.4, MCH 27.8, MCHC 33.7, RDW 14.5, Plt Coun
--- NOTE | 2020-03-28 14:30 | SW/DCPLANNER ---
Addendum entered by Bethany Campuzano 03/29/20 13:18: Gutierrez with [facility] has received information/order and stated that services will begin Wednesday for this patient. Addendum entered by Bethany Campuzano 03/29/20 10:46: Patient information and order has been faxed to [facility]. Original Note: I have spoke with this patient regarding discharge plans once medically stable for discharge. Patient stated that he resides at home alone, neighbor/family assist with grocery shopping, patient cooks for himself and takes care of himself. Patient stated that his family member (Yaa) checks on him often. I have explained options to patients regarding placement vs home health at time of discharge. Patient is refusing placement at this time. Patient is agreeable to home health services and has used [facility] in the past. I will continue to follow up with this patient until medically stable for discharge. Patient is NOT ready for discharge at this time.
[2020-03-28 16:02] LABS: POC Glucose,Bedside 156 (70-110)
[2020-03-28 21:28] LABS: POC Glucose,Bedside 177 (70-110)
[2020-03-29] VITALS: BP 109/64; PULSE 60; PULSE 83; RESP 16; TEMP 36.9; O2SAT 96
[2020-03-29 04:00] VITALS: BP 122/60; PULSE 70; PULSE 87; RESP 18; TEMP 37.1; O2SAT 95
--- NOTE | 2020-03-29 04:26 | PC.NURSE ---
A&OX4 Pt has not C/o of pain this shift. Unna boots in place to BLE. Pt have several loose stools this shift. Pt ambulated in room with walker with standby assist. Pt showered and bed change this shift. Pt is NPO for morning labs.
--- NOTE | 2020-03-29 04:34 | PC.NURSE ---
Pt has refused to have seizure pads on bed rails despite safety teaching to pt. Pt continues to refuse and states take these damn things off .
[2020-03-29 05:20] LABS: POC Glucose,Bedside 156 (70-110)
[2020-03-29 06:46] LABS: Basophils % 0.4 % (0.1-2.0); Eosinophils # 0.1 K/mm3 (0.0-0.4); Eosinophils % 1.2 % (0.1-12.0); Hematocrit 33.5 % (42.0-52.0); Hemoglobin 10.8 g/dL (14.1-18.0); Lymphocytes # 1.2 K/mm3 (0.7-4.5); Mean Corpuscular HGB Conc 32.3 g/dL (31.8-35.4); Mean Corpuscular Hemoglobin 27.1 pg (27.0-31.2); Mean Corpuscular Volume 83.9 fl (80-94); Mean Platelet Volume 8.2 fl (7.4-10.4); Monocytes # 0.6 K/mm3 (0.1-1.0); Monocytes % 6.3 % (1.7-9.3); Neutrophils # 7.4 K/mm3 (1.8-7.8); Neutrophils % 79.1 % (37.0-80.0); Platelet Count 225 K/mm3 (142-424); Red Blood Count 3.99 M/mm3 (4.60-6.20); Red Cell Distribution Width 14.6 % (11.5-17.5); White Blood Count 9.3 K/mm3 (4.8-10.8)
[2020-03-29 06:50] LABS: Chloride 106 mmol/L (98-107); Potassium 3.9 mmoL/L (3.5-5.1); Sodium 136 mmol/L (136-145)
[2020-03-29 06:53] LABS: Anion Gap 11.9 mEq/L (5-15); Blood Urea Nitrogen 17 mg/dl (9-20); Carbon Dioxide 22 mmol/L (22.0-30.0); Creatinine Clearance Estimated 128 mL/min (50-200); Estimated Glomerular Filt Rate 97 ml/min (>60); GFR (African American) 117 ML/MIN (>60)
[2020-03-29 06:54] LABS: Calcium 8.7 mg/dl (8.4-10.2); Glucose 149 mg/dl (74-100)
[2020-03-29 08:00] VITALS: BP 121/62; PULSE 70; RESP 20; TEMP 36.9; O2SAT 97; O2SAT 98
[2020-03-29 08:26] VITALS: PULSE 80
--- NOTE | 2020-03-29 08:46 | HMH.DCSUM ---
General - General Admission date:: 03/27/20 Discharge date: 03/29/20 HPI HPI: this pt presented to [facility] - -year-old male comes in complaining of some generalized weakness and fatigue for the last 7 days however patient does state he has felt weak and fatigue since last April. Patient does state with his new onset of weakness has been about 7 days. He states he does not have any pain anywhere except his lower extremities where he does have some mild erythema of the lower extremities with some sores that are healing. Patient cannot remember what meds he is taking or what his real medical history is. Patient is alert and oriented x4 however he is noncompliant with medications. Patient does not complain of any chest pain nor shortness of breath. But patient does complain of fever shakes and chills and does complain of fatigue. Patient denies any recent sore throat or headache. Patient denies any loss of smell or taste. Patient does have nausea with one episode of vomiting.pt with prob a flutter with pvc and was admitted with ivf and abx - Hospital Course Hospital Course: Laboratory Tests 03/27/20 03/27/20 03/27/20 17:00 17:00 17:00 WBC 9.2 RBC 4.39 L Hgb 12.2 L Hct 36.2 L MCV 82.4 MCH 27.8 MCHC 33.7 RDW 14.5 Plt Count 276 MPV 7.7 Neut % (Auto) 86.0 H Lymph % (Auto) 9.0 L [place] % (Auto) 4.4 Eos % (Auto) 0.4 Baso % (Auto) 0.2 Neut # (Auto) 7.9 H Lymph # (Auto) 0.8 [place] # (Auto) 0.4 Eos # (Auto) 0.0 Baso # (Auto) 0.0 Total Counted 100 Neutrophils % (Manual) 84 H Lymphocytes % (Manual) 9 L Monocytes % (Manual) 7 Platelet Estimate Normal RBC Morphology Normal ESR Specimen Source O2 % ABG pH ABG pCO2 ABG pO2 ABG HCO3 ABG Total CO2 ABG O2 Saturation ABG Base Excess Jaspreet Test Sodium 135 L Potassium 4.8 Chloride 102 Carbon Dioxide 20 L Anion Gap 17.8 H BUN 30 H Creatinine 0.90 Estimated Creat Clear 140 Estimated GFR 84 Est GFR ( Amer) 102 Glucose 170 H POC Glucose Hemoglobin A1c Lactate 1.1 Calcium 9.5 Magnesium Total Bilirubin 0.5 AST 22 ALT 17 Alkaline Phosphatase 91 Troponin I < 0.01 C-Reactive Protein NT-Pro-B Natriuret Pep Total Protein 7.4 Albumin 4.0 Globulin 3.4 H Albumin/Globulin Ratio 1.2 Triglycerides Cholesterol LDL Cholesterol Direct VLDL Cholesterol HDL Cholesterol Cholesterol/HDL Ratio Urine Color Urine Appearance Urine pH Ur Specific [place] Urine Protein Urine Glucose (UA) Urine Ketones Urine Blood Urine Nitrate Urine Bilirubin Urine Urobilinogen Ur Leukocyte Esterase Urine RBC Urine WBC Ur Squamous Epith Cells Urine Bacteria Chlamy pneumoniae PCR Adenovirus (PCR) B. pertussis DNA (PCR) Coronavirus OC43 (PCR) Coronavirus HKU1 (PCR) Coronavirus 229E (PCR) COVID-19 PCR Coronavirus NL63 (PCR) Human Metapneumovir PCR Influenza A (H1) PCR Influ A (H1N1/) PCR Influenza A (H3) PCR Influenza Type A (PCR) Influenza Type B (PCR) M. pneumoniae (PCR) Parainfluenza 1 (PCR) Parainfluenza 2 (PCR) Parainfluenza 3 (PCR) Parainfluenza 4 (PCR) RSV (PCR) Entero/Rhino (PCR) 03/27/20 03/27/20 03/27/20 17:00 17:00 18:48 WBC RBC Hgb Hct MCV MCH MCHC RDW Plt Count MPV Neut % (Auto) Lymph % (Auto) [place] % (Auto) Eos % (Auto) Baso % (Auto) Neut # (Auto) Lymph # (Auto) [place] # (Auto) Eos # (Auto) Baso # (Auto) Total Counted Neutrophils % (Manual) Lymphocytes % (Manual) Monocytes % (Manual) Platelet Estimate RBC Morphology ESR Specimen Source Right radial O2 % room air ABG pH 7.41 ABG pCO2 27.3 L ABG pO2 83.3 ABG HCO3 17.1 L ABG
[2020-03-29 10:01] VITALS: RESP 16
--- NOTE | 2020-03-29 10:10 | HMH.PHAINT ---
DISCHARGE COUNSELING COMPLETED ON PATIENT. NEW PRESCRIPTIONS INCLUDE METORPOLOL TARTRATE AND AUGMENTIN. THESE WERE SENT TO [facility] IN COMSTOCK. PATIENT IS TO CONTINUE ALL OTHER HOME MEDICATIONS WITH THE EXCEPTION OF METOPROLOL SUCCINATE AND AMLODIPINE. PATIENT VERBALIZED UNDERSTANDING AND HAD NO QUESTIONS AT THIS TIME. -NADIA DIAZ, MALLIKAD
== END 2020-03-29 11:21 | disposition home health service (06) | DRG 580 ==
LOC: ER 19:46 → 2ND 03-28 10:15
PROVIDERS: Nurse Practitioner; Nurse Practitioner Family; Admitting Provider Emergency Medicine; Emergency Provider Family Medicine; PCP Family Medicine; Visit Provider Emergency Medicine
DX: L03.116 Cellulitis of left lower limb (principal); I48.92 Unspecified atrial flutter; L97.921 Non-pressure chronic ulcer of unspecified part of left lower leg limited to breakdown of skin; L97.911 Non-pressure chronic ulcer of unspecified part of right lower leg limited to breakdown of skin; R65.10 Systemic inflammatory response syndrome (SIRS) of non-infectious origin without acute organ dysfunction; L03.031 Cellulitis of right toe; B96.20 Unspecified Escherichia coli [E. coli] as the cause of diseases classified elsewhere; B96.4 Proteus (mirabilis) (morganii) as the cause of diseases classified elsewhere; Z87.891 Personal history of nicotine dependence; I10 Essential (primary) hypertension; G40.909 Epilepsy, unspecified, not intractable, without status epilepticus; I89.0 Lymphedema, not elsewhere classified; I25.10 Atherosclerotic heart disease of native coronary artery without angina pectoris; Z95.5 Presence of coronary angioplasty implant and graft; Z79.84 Long term (current) use of oral hypoglycemic drugs; Z88.8 Allergy status to other drugs, medicaments and biological substances; B87.9 Myiasis, unspecified; Z59.1 Inadequate housing
CPT/HCPCS: 11042; 11750; 36415; 71045; 71275; 73630; 80048; 80053; 80061; 81001; 82803; 82962; 83036; 83605; 83735; 83880; 84484; 85007; 85025; 85651; 86140; 87040; 87070; 87077; 87186; 87205; 87581; 87633; 87798; 93005; 93306; 93923; 96365; 96367; 96375; 99285; J2543; Q9967

== ENCOUNTER 2020-10-18 08:38 | Observation (INO) | payer MEDICARE, SELFPAY ==
[2020-10-18] VITALS (15 sets, daily range): BP systolic 107–168; BP diastolic 62–134; PULSE 98–117; RESP 18–24; TEMP 36.6–37; O2SAT 93–98; BMI 33.0; BMI 33.5
--- NOTE | 2020-10-18 08:47 | ECG_ITS ---
APPROVED REPORT Exam: Resting ECG HR:107 bpm ECG Measurements Heart Rate 107 AXES [place] 138 P 71 QRSd 110 QRS 82 QT 336 T 49 QTc 448 Conclusion Sinus tachycardia with frequent premature ventricular complexes and fusion complexes Otherwise normal ECG Electronically signed by : Gustavo Leggett, 10/18/2020 15:58:06
--- NOTE | 2020-10-18 09:00 | CT_ITS ---
PROCEDURE: CT HEAD/BRAIN WO CON CLINICAL INDICATION: fall Head injury with headache/pain, contusion, abrasion or hematoma COMPARISON: CT CT HEAD/BRAIN WO CON from 04/22/2019 TECHNIQUE: Axial images obtained. All CT scans at the facility use one or more dose reduction, viz: automated exposure control, ma/kV adjustment per patient size (including targeted exams where dose is matched to indication, i.e. head), or iterative reconstruction technique. FINDINGS: No midline shift, mass effect, intracranial hemorrhage, hydrocephalus, or extra-axial fluid collection is evident. The calvarium has an unremarkable appearance. No mastoid effusion. There is mild mucosal thickening of the ethmoid sinuses. IMPRESSION: No acute intracranial finding Dictated by: Jaspreet Leonard MD 10/18/2020 09:47 Jaspreet Leonard MD in [place] 10/18/2020 09:47
--- NOTE | 2020-10-18 09:00 | XR_ITS ---
PROCEDURE: XR CHEST PORTABLE CLINICAL HISTORY: cough Cough COMPARISON: CR XR CHEST AP from 04/22/[address] ANGIO CHEST from 03/27/2020 CR XR CHEST PORTABLE from 03/27/2020 FINDINGS: The cardiomediastinal silhouette and pulmonary vascularity are within normal limits. The lungs are clear without infiltrates, suspicious nodules, or pleural effusions. Multilevel thoracic spondylosis IMPRESSION: No acute findings. Dictated by: Jaspreet Leonard MD 10/18/2020 10:15 Jaspreet Leonard MD in [place] 10/18/2020 10:15
--- NOTE | 2020-10-18 09:00 | XR_ITS ---
PROCEDURE: XR FEMUR LT 2V CLINICAL INDICATION: trauma Injury with pain COMPARISON: CR XR PELVIS 1-2V from 04/22/2019 CR XR HIP LT 2-3V W/PELVIS from 10/18/2020 FINDINGS: The mid and distal aspect of the femur shows no evidence of acute fracture or dislocation. There is generalized vascular calcification. Osteoarthritic changes are present in the left hip. The cross-table lateral images are very limited. There is a thin sclerotic density along the femoral neck on the left in the subcapital region and could be related to a mild impaction injury. There are mild osteoarthritic changes of the right hip. There is a mild amount of retained colonic feces. IMPRESSION: Osteoarthritic changes of the left hip with possible nondisplaced impacted fracture of the left femoral neck. Consider CT of the left hip for further evaluation Dictated by: Jaspreet Leonard MD 10/18/2020 10:14 Jaspreet Leonard MD in [place] 10/18/2020 10:14
--- NOTE | 2020-10-18 09:07 | HMH.EDFALL ---
ED Disposition Clinical Impression: Accidental fall Qualifiers: Encounter type: initial encounter Qualified Code(s): W19.XXXA - Unspecified fall, initial encounter Sprain of left hip Qualifiers: Encounter type: initial encounter Qualified Code(s): S73.102A - Unspecified sprain of left hip, initial encounter Disposition: Home, Self-Care Condition on Discharge: Good Instructions: How to Prevent Falls Referrals: John Paul Orellana [Primary Care Provider] - - Critical Care Critical Care Time: No Attestation: On 10/18/20, the high probability of a clinically significant, sudden or life threatening deterioration of the following system(s) required my full and direct attention, intervention and personal management. The time I documented below is in addition to time spent performing reported procedures but includes the following listed in this critical care notation. Medical Decision Making - Medical Records Medical records reviewed: Yes: I reviewed the patient's medical records. - Lex Inquiry Pt receiving controlled substance: Yes Lex was queried for this patient: No Reason not queried -: Emergent pt cond-no time Risks and benefits of using a controlled substance: were discussed with pt by me Vital Signs: 10/18/20 08:40 10/18/20 09:05 10/18/20 09:19 Temperature 98.6 F Temperature Source Oral Pulse Rate [Radial] 117 H 109 H 106 H Respiratory Rate 24 Blood Pressure [Right Arm] 125/81 107/63 L 132/71 Blood Pressure Mean [Right Arm] 95 77 91 Blood Pressure Position [Right Arm] Sitting Sitting 02 Sat by Pulse Oximetry 98 Oxygen Delivery Method Room Air 10/18/20 09:46 10/18/20 10:38 10/18/20 11:27 Temperature Temperature Source Pulse Rate [Radial] 106 H 112 H 99 H Respiratory Rate 20 18 Blood Pressure [Right Arm] 111/67 130/62 151/134 H Blood Pressure Mean [Right Arm] 81 84 139 Blood Pressure Position [Right Arm] Sitting 02 Sat by Pulse Oximetry 98 98 95 Oxygen Delivery Method Room Air 10/18/20 11:42 Temperature Temperature Source Pulse Rate [Radial] 103 H Respiratory Rate 18 Blood Pressure [Right Arm] 140/82 Blood Pressure Mean [Right Arm] 101 Blood Pressure Position [Right Arm] 02 Sat by Pulse Oximetry 93 L Oxygen Delivery Method - Lab Data Lab Results 10/18/20 08:50: WBC 13.8 H, RBC 4.25 L, Hgb 11.0 L, Hct 35.7 L, MCV 83.9, MCH 26.0 L, MCHC 31.0 L, RDW 14.6, Plt Count 334, MPV 8.4, Neut % (Auto) 82.6 H, Lymph % (Auto) 9.5 L, [place] % (Auto) 6.2, Eos % (Auto) 1.4, Baso % (Auto) 0.4, Neut # (Auto) 11.4 H, Lymph # (Auto) 1.3, [place] # (Auto) 0.9, Eos # (Auto) 0.2, Baso # (Auto) 0.1 10/18/20 08:50: Sodium 135 L, Potassium 5.1, Chloride 102, Carbon Dioxide 27, Anion Gap 11.1, BUN 29 H, Creatinine 0.70, Estimated Creat Clear 117, Estimated GFR 113, Est GFR ( Amer) 137, Glucose 188 H, Calcium 9.7, Total Bilirubin 0.6, AST 35, ALT 20, Alkaline Phosphatase 98, Total Creatine Kinase 304 H, Total Protein 7.8, Albumin 4.1, Globulin 3.7 H, Albumin/Globulin Ratio 1.1 10/18/20 08:50: SARS-CoV-2 IgG Ab (Rapid) Negative, SARS-CoV-2 IgM Ab (Rapid) Negative Result diagrams: 10/18/20 08:50 10/18/20 08:50 Orders (Tests/Meds): ED MEDICATIONS Discontinued Medications Generic Name Dose Route Start Last Admin Trade Name Freq PRN Reason Stop Dose Admin Fentanyl Citrate 50 mcg 10/18/20 09:03 10/18/20 09:05 Fentanyl 100mcg/2ml Vial IV 10/18/20 09:04 50 mcg ONCE ONE Administration Fentanyl Citrate 50 mcg 10/18/20 09:07 10/18/20 08:55 Fentanyl 100mcg/2ml Vial IV 10/18/20 09:08 50 mcg ONCE ONE Administration Hydromorphone HCl 1 mg 10/18/20 10:52 10/18/20 09:16 Hydromorphone 2mg/Ml Syringe IV 10/18/20 10:53 1 mg ONCE ONE Administration Hydromorphone HCl 1 mg 10/18/20 10:53 10/18/20 10:53 Hydromorphone 2mg/Ml Syringe IV 10/18/20 10:54 1 mg ONCE ONE Administration Morphine Sulfate 4 mg 10/18/20 09:03 10/18/20 08:40 Morphine 4mg/Ml S
[2020-10-18 09:22] LABS: Basophils # 0.1 K/mm3 (0-0.2); Basophils % 0.4 % (0.1-2.0); Eosinophils # 0.2 K/mm3 (0.0-0.4); Eosinophils % 1.4 % (0.1-12.0); Hematocrit 35.7 % (42.0-52.0); Lymphocytes # 1.3 K/mm3 (0.7-4.5); Lymphocytes % 9.5 % (10-50); Mean Corpuscular Volume 83.9 fl (80-94); Mean Platelet Volume 8.4 fl (7.4-10.4); Monocytes # 0.9 K/mm3 (0.1-1.0); Monocytes % 6.2 % (1.7-9.3); Neutrophils # 11.4 K/mm3 (1.8-7.8); Neutrophils % 82.6 % (37.0-80.0); Platelet Count 334 K/mm3 (142-424); Red Blood Count 4.25 M/mm3 (4.60-6.20); Red Cell Distribution Width 14.6 % (11.5-17.5); White Blood Count 13.8 K/mm3 (4.8-10.8)
[2020-10-18 09:23] LABS: Chloride 102 mmol/L (98-107); Potassium 5.1 mmoL/L (3.5-5.1); Sodium 135 mmol/L (136-145)
[2020-10-18 09:25] LABS: Blood Urea Nitrogen 29 mg/dl (9-20); Creatinine Clearance Estimated 117 mL/min (50-200); Estimated Glomerular Filt Rate 113 ml/min (>60); GFR (African American) 137 ML/MIN (>60)
[2020-10-18 09:26] LABS: Alanine Aminotransferase 20 U/L (12-78); Albumin Level 4.1 g/dl (3.5-5.0); Albumin/Globulin Ratio 1.1 (1.1-1.8); Alkaline Phosphatase 98 U/L (38-126); Anion Gap 11.1 mEq/L (5-15); Aspartate Amino Transferase 35 U/L (17-59); Bilirubin,Total 0.6 mg/dl (0.2-1.3); Calcium 9.7 mg/dl (8.4-10.2); Carbon Dioxide 27 mmol/L (22.0-30.0); Creatine Kinase 304 U/L (55-170); Globulin 3.7 g/dL (1.3-3.2); Glucose 188 mg/dl (74-100); Total Protein,Serum 7.8 g/dl (6.3-8.2)
[2020-10-18 10:07] LABS: Coronavirus 19 IgG Antibody Negative (Negative); Coronavirus 19 IgM Antibody Negative (Negative)
--- NOTE | 2020-10-18 10:22 | CT_ITS ---
PROCEDURE: CT HIP LT WO CON CLINICAL HISTORY: pain Injury with pain, possible fracture on x-ray COMPARISON: CR XR HIP LT 2-3V W/PELVIS from 10/18/2020 TECHNIQUE: Axial images obtained with sagittal and coronal reformats. All CT scans at the facility use one or more dose reduction, viz: automated exposure control, ma/kV adjustment per patient size (including targeted exams where dose is matched to indication, i.e. head), or iterative reconstruction technique. FINDINGS: There are moderate osteoarthritic changes of the left hip. No fracture apparent. There is prominent spurring along the femoral head and acetabulum. There is scattered sub chondral cystic changes of the acetabulum and humeral head. There is a small hip joint effusion. Incidental note is made of a small left inguinal hernia containing fat. IMPRESSION: . 1. No acute fracture. 2. Moderate osteoarthritic changes Dictated by: Jaspreet Leonard MD 10/18/2020 11:21 Jaspreet Leonard MD in [place] 10/18/2020 11:21
--- NOTE | 2020-10-18 12:00 | PC.NURSE ---
pt states pain is better but continues c/o nausea,
--- NOTE | 2020-10-18 14:00 | PC.NURSE ---
pt resting updated on plan of care
--- NOTE | 2020-10-18 14:00 | PC.NURSE ---
attempted to get pt out of bed for discharge home pt unable to stand or transfer to wheelchair.
--- NOTE | 2020-10-18 14:59 | PC.NURSE ---
DR HINDS HAS ACCEPTED PT FOR ADMISSION
--- NOTE | 2020-10-18 15:00 | PC.NURSE ---
pt was unsure of his home medications. no family with pt.
--- NOTE | 2020-10-18 15:07 | HMH.HP ---
*Admission Date: 10/18/20 <CooperLainey farias 10/18/20 15:10> *Chief complaint: Fall at home <Pastor Dsouzaa 10/18/20 15:10> *History of present illness: 65-year-old male presented to the emergency department after accidental fall. The patient did have a prolonged downtime secondary to unable to be able to get off the floor by himself. Patient provided analgesics. Work-up initiated. On reevaluation, patient is feeling much better. His range of motion is improved. Pain is improved. CT did not show any injury or cranial abnormalities or fracture of the hip. Patient does have a slightly elevated CK likely from his prolonged laying on the floor. He is urinating without any difficulties. I did offer admission for observation, however the patient would like to go home as he is feeling much better. I did explain to him that he needs repeat examination in 24 hours by PCP or return to the emergency department. Verbalized understanding. Upon going to reevaluate the patient, he states that his pain is getting worse. We did attempt to get him up in a wheelchair and he states that he is just unable to secondary to the pain. Given the patient's worsening debility, we will admit him to the hospital for further evaluation and treatment. (above as per ER physician) The patient states he has been wheelchair-bound for the past year due to spinal stenosis and previous back surgeries. He has had numerous falls in the last few weeks. He is a patient of Dr. Orellana and Dr. Tan is his spinal surgeon. He states he has had weakness and nausea along with lack of appetite for the past few weeks and he was evaluated by Dr. Orellana who did blood work and told him everything was normal. He currently lives alone but does have family nearby. He is retired from [employer]. He has multiple abrasions and bruising on his legs from his falls. <Lainey Dsouza 10/18/20 17:33> [facility] History I have reviewed the patient's past medical history: Yes <Lainey Dsozua 10/18/20 15:36> Medical History: Reports:: Arrhythmia, Diabetes Mellitus Type 2, Hyperlipidemia, Hypertension, Seizures <Lainey Dsouza 10/18/20 17:33> *Have you ever received a pneumonia vaccine?: No <Lainey Dsouza 10/18/20 15:10> *Have you received a flu vaccine this season?: No <Lainey Dsouza 10/18/20 15:10> Other Surgeries: Yes: Other (back surgery) <Lainey Dsouza 10/18/20 17:33> - *Social History Smoking Status: Former smoker <Lainey Dsouza 10/18/20 15:10> Tobacco Type: cigarettes <Lainey Dsouza 10/18/20 15:10> Alcohol Intake: former <Lainey Dsouza 10/18/20 15:10> Alcohol Intake Frequency:: holidays/special occasions only <Lainey Dsouza 10/18/20 15:10> Substance Use Type: marijuana <Lainey Dsouza 10/18/20 15:10> *Occupational Status:: retired <Lainey Dsouza 10/18/20 15:10> *Travel in the last 8 weeks: None <Lainey Dsouza 10/18/20 17:33> Family Hx:: No significant family history <Lainey Dsouza 10/18/20 15:10> Review of Systems - Constitutional Reports lack of energy, Reports weakness, Denies chills, Denies fever(s) <Lainey Dsouza 10/18/20 17:33> - Eyes Denies blurry vision, Denies double vision <Lainey Dsouza 10/18/20 17:33> - ENT Denies nasal congestion, Denies sore throat <Lainey Dsouza 10/18/20 17:33> - *Cardiovascular Denies chest pain, Denies shortness of breath <Lainey Dsouza 10/18/20 17:33> - *Respiratory Denies chest congestion, Denies cough, Denies shortness of breath <Lainey Dsouza 10/18/20 17:33> - *Gastrointestinal Reports nausea, Denies abdominal pain, Denies loose stools, Denies vomiting <Lainey Dsouza 10/18/20 17:33> - *Genitourinary Denies difficulty urinating <Lainey Dsouza 10/18/20 17:33> - *Musculoskeletal Reports back pain, Reports muscle weakness <Lainey Dsouza 10/18/20 17:33> - Integumentary/Breasts Reports wounds (on bilateral legs from falls) <Lainey Dsouza - 10/18/20 17:33> - *Neurologic
[2020-10-18 15:08] LABS: Microscopic, Urine URINE MICROSCOPIC (MICROSCOPIC)
[2020-10-18 15:15] LABS: Appearance,Urine CLEAR (Clear); Bilirubin,Urine Negative (Negative); Blood, Urine Negative (Negative); Color,Urine YELLOW (Yellow); Glucose,Urine (UA) Negative (Negative); Ketones,Urine Negative (Negative); Leukocyte Esterase,Urine Negative (Negative); Nitrate,Urine Negative (Negative); Protein,Urine Negative (Negative); Specific Gravity, Urine 1.015 (1.005-1.030); Urobilinogen,Urine 0.2 EU/dl (0.2)
--- NOTE | 2020-10-18 17:30 | PC.NURSE ---
pt sitting up in wheelchair. dinner tray given
--- NOTE | 2020-10-18 19:06 | PC.NURSE ---
pt arrived to the [facility] via wheelchair from ER
--- NOTE | 2020-10-18 19:06 | PC.NURSE ---
report to janiya perez
[2020-10-18 21:10] LABS: POC Glucose,Bedside 176 (70-110)
[2020-10-19] VITALS: BP 112/61; PULSE 91; RESP 22; TEMP 36.8; O2SAT 97
[2020-10-19 04:00] VITALS: BP 145/62; PULSE 107; RESP 22; TEMP 36.8; O2SAT 98
[2020-10-19 05:00] VITALS: BMI 33.4
[2020-10-19 06:28] LABS: POC Glucose,Bedside 157 (70-110)
--- NOTE | 2020-10-19 07:05 | PC.NURSE ---
PT. C/O PAIN IN LEGS AND ONE EPISODE OF NAUSEA. REDNESS AND SCATTERED SCABS NOTED TO BLE; +3 PITTING EDEMA BLE. NO VOMITING OR DIARRHEA.
--- NOTE | 2020-10-19 07:29 | PC.WOUNDNOTE ---
Wound Location: BLE WITH SCATTERED SCABS Inflammation/swelling Y/N: Y Amount: None
[2020-10-19 08:00] VITALS: BP 148/68; PULSE 96; RESP 18; TEMP 36.8; O2SAT 98
--- NOTE | 2020-10-19 08:40 | HMH.ACPN2 ---
<Lainey Dsouza - Last Filed: 10/19/20 08:54> Internal Medicine - PN: Subj *Date: 10/19/20 *Time: 08:54 Interval history: Patient states he still feels very weak this morning. His legs are both hurting. He has been unable to walk for quite some time. He states he did not rest well last night. He is trying to eat some this morning. He states his nausea is not quite as bad. Exam Vital signs and Labs for Last 24 Hours: Temp Pulse Resp BP Pulse Ox 98.3 F 107 H 22 145/62 H 98 10/19/20 04:00 10/19/20 04:00 10/19/20 04:00 10/19/20 04:00 10/19/20 04:00 Laboratory Results - last 24 hr 10/18/20 08:50: WBC 13.8 H, RBC 4.25 L, Hgb 11.0 L, Hct 35.7 L, MCV 83.9, MCH 26.0 L, MCHC 31.0 L, RDW 14.6, Plt Count 334, MPV 8.4, Neut % (Auto) 82.6 H, Lymph % (Auto) 9.5 L, [place] % (Auto) 6.2, Eos % (Auto) 1.4, Baso % (Auto) 0.4, Neut # (Auto) 11.4 H, Lymph # (Auto) 1.3, [place] # (Auto) 0.9, Eos # (Auto) 0.2, Baso # (Auto) 0.1 10/18/20 08:50: Sodium 135 L, Potassium 5.1, Chloride 102, Carbon Dioxide 27, Anion Gap 11.1, BUN 29 H, Creatinine 0.70, Estimated Creat Clear 117, Estimated GFR 113, Est GFR ( Amer) 137, Glucose 188 H, Calcium 9.7, Total Bilirubin 0.6, AST 35, ALT 20, Alkaline Phosphatase 98, Total Creatine Kinase 304 H, Total Protein 7.8, Albumin 4.1, Globulin 3.7 H, Albumin/Globulin Ratio 1.1 10/18/20 08:50: SARS-CoV-2 IgG Ab (Rapid) Negative, SARS-CoV-2 IgM Ab (Rapid) Negative 10/18/20 15:00: Urine Color Yellow, Urine Appearance Clear, Urine pH 6.0, Ur Specific [place] 1.015, Urine Protein Negative, Urine Glucose (UA) Negative, Urine Ketones Negative, Urine Blood Negative, Urine Nitrate Negative, Urine Bilirubin Negative, Urine Urobilinogen 0.2, Ur Leukocyte Esterase Negative, Urine RBC None, Urine WBC None, Ur Squamous Epith Cells None, Urine Bacteria None 10/18/20 20:52: POC Glucose 176 H 10/19/20 06:07: POC Glucose 157 H I & O for Last 24 hours: Intake & Output 10/16/20 10/17/20 10/18/20 10/19/20 11:59 11:59 11:59 11:59 Intake Total 1145 / 1145 Output Total 365 / 365 Balance 780 / 780 Weight 250 lb 252 lb 7 oz Microbiology Reports for the Last 24 Hours: Microbiology 10/18/20 14:53 Nasopharyngeal Coronavirus COVID-19 PCR - Final - Constitutional no acute distress - *Routine Respiratory Exam Present: CTA bilaterally - *Routine Cardiovascular Exam Present: RRR - *Routine Abdominal Exam Present: soft, normoactive bowel sounds. Absent: tenderness - *Routine Extremities Exam Present: edema (bilateral LE's). Absent: cyanosis, clubbing - *Routine Skin Exam Present: warm. Absent: rash Comments: Bilateral lower extremities with multiple abrasions and surrounding cellulitis. The right leg cellulitis seems to be tiny bit better today, but the left leg cellulitis is a little bit worse. Both legs are tender. Assessment and Plan (1) Accidental fall Status: Acute Qualifiers: Encounter type: initial encounter Qualified Code(s): W19.XXXA - Unspecified fall, initial encounter Category: Medical Code(s): W19.XXXA - Unspecified fall, initial encounter (2) Rhabdomyolysis Status: Acute Category: Medical Code(s): M62.82 - Rhabdomyolysis (3) Nausea Status: Acute Category: Medical Code(s): R11.0 - Nausea (4) Weakness Status: Acute Category: Medical Code(s): R53.1 - Weakness (5) Fatigue Status: Acute Category: Medical Code(s): R53.83 - Other fatigue (6) Bilateral lower leg cellulitis Status: Acute Category: Medical Code(s): L03.116 - Cellulitis of left lower limb; L03.115 - Cellulitis of right lower limb (7) Sprain of left hip Status: Acute Qualifiers: Encounter type: initial encounter Qualified Code(s): S73.102A - Unspecified sprain of left hip, initial encounter Category: Medical Code(s): S73.102A - Unspecified sprain of left hip, initial encounter (8) Diabetes mellitus Status: Acute Qualifiers: Michelle
[2020-10-19 08:54] LABS: Basophils # 0.1 K/mm3 (0-0.2); Basophils % 0.5 % (0.1-2.0); Eosinophils # 0.3 K/mm3 (0.0-0.4); Eosinophils % 3.2 % (0.1-12.0); Hematocrit 35.7 % (42.0-52.0); Hemoglobin 11.8 g/dL (14.1-18.0); Lymphocytes # 1.7 K/mm3 (0.7-4.5); Lymphocytes % 18.5 % (10-50); Mean Corpuscular Hemoglobin 27.2 pg (27.0-31.2); Mean Corpuscular Volume 82.5 fl (80-94); Mean Platelet Volume 8.3 fl (7.4-10.4); Monocytes # 0.7 K/mm3 (0.1-1.0); Neutrophils # 6.5 K/mm3 (1.8-7.8); Neutrophils % 70.8 % (37.0-80.0); Platelet Count 296 K/mm3 (142-424); Red Blood Count 4.33 M/mm3 (4.60-6.20); Red Cell Distribution Width 15.2 % (11.5-17.5); White Blood Count 9.2 K/mm3 (4.8-10.8)
[2020-10-19 08:56] LABS: Chloride 106 mmol/L (98-107); Potassium 4.3 mmoL/L (3.5-5.1); Sodium 137 mmol/L (136-145)
[2020-10-19 08:59] LABS: Anion Gap 9.3 mEq/L (5-15); Blood Urea Nitrogen 16 mg/dl (9-20); Carbon Dioxide 26 mmol/L (22.0-30.0); Creatinine Clearance Estimated 118 mL/min (50-200); Estimated Glomerular Filt Rate 97 ml/min (>60); GFR (African American) 117 ML/MIN (>60)
[2020-10-19 09:00] LABS: Calcium 9.6 mg/dl (8.4-10.2); Glucose 148 mg/dl (74-100)
[2020-10-19 11:48] LABS: POC Glucose,Bedside 140 (70-110)
[2020-10-19 16:00] VITALS: BP 151/84; PULSE 65; RESP 20; TEMP 36.8; O2SAT 95
[2020-10-19 17:53] LABS: POC Glucose,Bedside 164 (70-110)
[2020-10-19 20:00] VITALS: BP 131/79; PULSE 78; RESP 17; TEMP 36.8; O2SAT 100
--- NOTE | 2020-10-19 20:20 | PC.NURSE ---
PT IS RESTING IN BED. RECEIVED PAIN MEDICATION FOR DISCOMFORT. DURING SHIFT CHANGE PT WAS WANTING TO SIGN OUT AMA B/C HE STATED HE REALLY MISSED HIS DOGS AND WANTED TO GO HOME. WITH SOME ENCOURAGEMENT PT STATED HE WOULD STAY TILL IN THE MORNING. SWELLING/REDNESS/ABRASIONS NOTED TO BLE. PT REQUIRES ASSISTANCE WITH ELEVATING BLE IN THE BED. EATING AND DRINKING WELL. LUNG SOUNDS DIMINISHED. ABDOMEN SOFT/NON TENDER WITH ACTIVE BOWEL SOUNDS. VSS. WILL CONTINUE TO MONITOR.
[2020-10-19 21:09] LABS: POC Glucose,Bedside 265 (70-110)
[2020-10-20 04:00] VITALS: BP 135/78; PULSE 51; RESP 20; TEMP 36.8; O2SAT 99
[2020-10-20 05:14] VITALS: BMI 33.3
[2020-10-20 06:06] LABS: POC Glucose,Bedside 133 (70-110)
--- NOTE | 2020-10-20 06:32 | PC.NURSE ---
no acute changes since prior assessment, at beginning of shift pt was adamant about leaving, pt educated on the benefits of staying for treatment, has rested well since then, using urinal with clear yellow urine noted, no complaints of SOA or chest pain, has complained of pain in legs 2 X and was treated per MAR, has remained afebrile, pt has been pleasant, states he still wants to go home but has been very cooperative and appropriate t/o shift,
[2020-10-20 08:00] VITALS: BP 151/76; PULSE 100; RESP 16; TEMP 37.1; O2SAT 99
[2020-10-20 08:02] LABS: Basophils # 0.3 K/mm3 (0-0.2); Basophils % 3.6 % (0.1-2.0); Eosinophils # 0.4 K/mm3 (0.0-0.4); Eosinophils % 4.7 % (0.1-12.0); Hematocrit 38.8 % (42.0-52.0); Hemoglobin 12.1 g/dL (14.1-18.0); Lymphocytes # 2.2 K/mm3 (0.7-4.5); Lymphocytes % 24.4 % (10-50); Mean Corpuscular HGB Conc 31.3 g/dL (31.8-35.4); Mean Corpuscular Hemoglobin 26.7 pg (27.0-31.2); Mean Corpuscular Volume 85.3 fl (80-94); Mean Platelet Volume 15.8 fl (7.4-10.4); Monocytes # 0.8 K/mm3 (0.1-1.0); Monocytes % 8.7 % (1.7-9.3); Neutrophils # 5.5 K/mm3 (1.8-7.8); Neutrophils % 62.2 % (37.0-80.0); Platelet Count 272 K/mm3 (142-424); Red Blood Count 4.55 M/mm3 (4.60-6.20); Red Cell Distribution Width 17.8 % (11.5-17.5); White Blood Count 8.9 K/mm3 (4.8-10.8)
[2020-10-20 08:04] LABS: Chloride 106 mmol/L (98-107); Sodium 136 mmol/L (136-145)
[2020-10-20 08:05] LABS: Potassium 3.8 mmoL/L (3.5-5.1)
[2020-10-20 08:08] LABS: Anion Gap 9.8 mEq/L (5-15); Blood Urea Nitrogen 17 mg/dl (9-20); Calcium 9.5 mg/dl (8.4-10.2); Carbon Dioxide 24 mmol/L (22.0-30.0); Creatinine Clearance Estimated 117 mL/min (50-200); Estimated Glomerular Filt Rate 113 ml/min (>60); GFR (African American) 137 ML/MIN (>60); Glucose 195 mg/dl (74-100)
--- NOTE | 2020-10-20 08:14 | HMH.ACPN2 ---
Internal Medicine - PN: Subj *Date: 10/20/20 *Time: 08:35 Interval history: Patient states overall he feels a little better this morning. His pain is still not well controlled. Exam Vital signs and Labs for Last 24 Hours: Temp Pulse Resp BP Pulse Ox 98.2 F 51 L 20 135/78 99 10/20/20 04:00 10/20/20 04:00 10/20/20 04:00 10/20/20 04:00 10/20/20 04:00 Laboratory Results - last 24 hr 10/19/20 08:04: WBC 9.2 D, RBC 4.33 L, Hgb 11.8 L, Hct 35.7 L, MCV 82.5, MCH 27.2, MCHC 33.0, RDW 15.2, Plt Count 296, MPV 8.3, Neut % (Auto) 70.8, Lymph % (Auto) 18.5, [place] % (Auto) 7.0, Eos % (Auto) 3.2, Baso % (Auto) 0.5, Neut # (Auto) 6.5, Lymph # (Auto) 1.7, [place] # (Auto) 0.7, Eos # (Auto) 0.3, Baso # (Auto) 0.1 10/19/20 08:04: Sodium 137, Potassium 4.3, Chloride 106, Carbon Dioxide 26, Anion Gap 9.3, BUN 16 D, Creatinine 0.80, Estimated Creat Clear 118, Estimated GFR 97, Est GFR ( Amer) 117, Glucose 148 H D, Calcium 9.6 10/19/20 11:41: POC Glucose 140 H 10/19/20 17:32: POC Glucose 164 H 10/19/20 20:50: POC Glucose 265 H 10/20/20 05:57: POC Glucose 133 H 10/20/20 07:31: WBC 8.9, RBC 4.55 L, Hgb 12.1 L, Hct 38.8 L, MCV 85.3, MCH 26.7 L, MCHC 31.3 L, RDW 17.8 H, Plt Count 272, MPV 15.8 H, Neut % (Auto) 62.2, Lymph % (Auto) 24.4, [place] % (Auto) 8.7, Eos % (Auto) 4.7, Baso % (Auto) 3.6 H, Neut # (Auto) 5.5, Lymph # (Auto) 2.2, [place] # (Auto) 0.8, Eos # (Auto) 0.4, Baso # (Auto) 0.3 H 10/20/20 07:31: Sodium 136, Potassium 3.8, Chloride 106, Carbon Dioxide 24, Anion Gap 9.8, BUN 17, Creatinine 0.70, Estimated Creat Clear 117, Estimated GFR 113, Est GFR ( Amer) 137, Glucose 195 H D, Calcium 9.5 Vital Signs - 24 hr 10/19/20 16:00 10/19/20 20:00 10/20/20 04:00 Temperature 98.2 F 98.3 F 98.2 F Pulse Rate [Radial] 65 78 51 L Respiratory Rate 20 17 20 Blood Pressure [Right Arm] 151/84 H 131/79 135/78 02 Sat by Pulse Oximetry 95 100 99 I & O for Last 24 hours: Intake & Output 10/17/20 10/18/20 10/19/20 10/20/20 23:59 23:59 23:59 23:59 Intake Total 1805 / 1805 1197 / 1197 Output Total 115 / 215 800 / 800 350 / 350 Balance -115 / -215 1005 / 1005 847 / 847 Weight 253 lb 5 oz 252 lb 7 oz 251 lb 3 oz Microbiology Reports for the Last 24 Hours: Microbiology 10/19/20 01:30 Rectum CRE Surveillance Culture - Final - Constitutional no acute distress - *Routine Respiratory Exam Present: CTA bilaterally - *Routine Cardiovascular Exam Present: RRR - *Routine Skin Exam Comments: Redness over the anterior legs has faded some Assessment and Plan (1) Accidental fall Status: Acute Qualifiers: Encounter type: initial encounter Qualified Code(s): W19.XXXA - Unspecified fall, initial encounter Category: Medical Code(s): W19.XXXA - Unspecified fall, initial encounter (2) Rhabdomyolysis Status: Acute Category: Medical Code(s): M62.82 - Rhabdomyolysis (3) Nausea Status: Acute Category: Medical Code(s): R11.0 - Nausea (4) Weakness Status: Acute Category: Medical Code(s): R53.1 - Weakness (5) Fatigue Status: Acute Category: Medical Code(s): R53.83 - Other fatigue (6) Bilateral lower leg cellulitis Status: Acute Category: Medical Code(s): L03.116 - Cellulitis of left lower limb; L03.115 - Cellulitis of right lower limb (7) Sprain of left hip Status: Acute Qualifiers: Encounter type: initial encounter Qualified Code(s): S73.102A - Unspecified sprain of left hip, initial encounter Category: Medical Code(s): S73.102A - Unspecified sprain of left hip, initial encounter (8) Diabetes mellitus Status: Acute Qualifiers: Diabetes mellitus type: type 2 Diabetes mellitus long term acute care registered nurse insulin use: with long term acute care registered nurse use Diabetes mellitus complication status: with other specified complication Qualified Code(s): E11.69 - Type 2 diabetes mellitus with other specified complication; Z79.4 - [facility] (current) use of insulin Category: M
[2020-10-20 12:10] LABS: POC Glucose,Bedside 153 (70-110)
[2020-10-20 15:26] VITALS: BP 136/110; PULSE 81; RESP 18; TEMP 36.9; O2SAT 96
--- NOTE | 2020-10-20 15:57 | PC.NURSE ---
PT IS RESTING IN BED.WILL OCCASIONALLY SIT UP ON THE SOB. PT HAS BEEN OFFERED ASSISTANCE TO GET UP TO THE CHAIR BUT HE STATES HE DOESN'T HAVE ANY DESIRE TO GET OOB. PT HAD PO PAIN MEDICATION THIS SHIFT AND STATED THE DOSAGE WAS NOT LARGE ENOUGH AND IT WAS NOT HELPING HIS PAIN. PT REQUESTED TO JUST HAVE HIS MUSCLE RELAXER AND MORPHINE INSTEAD. REDNESS/SWELLING/ABRASIONS NOTED TO BLE. LUNG SOUNDS CLEAR. ABDOMEN SOFT/NON TENDER WITH ACTIVE BOWEL SOUNDS. VSS. WILL CONTINUE TO MONITOR.
[2020-10-20 17:27] LABS: POC Glucose,Bedside 190 (70-110)
[2020-10-20 20:00] VITALS: BP 162/66; PULSE 87; RESP 17; TEMP 36.6; O2SAT 99
[2020-10-20 20:34] LABS: POC Glucose,Bedside 195 (70-110)
[2020-10-21 04:00] VITALS: BP 146/84; PULSE 56; RESP 17; TEMP 36.7; O2SAT 95
--- NOTE | 2020-10-21 04:04 | PC.NURSE ---
shift summary pts lung sounds are clear with sats maintained greater then 90% on room air with a rate ranging from 16-20. pts legs are less red. pt uses bedside urinal urine is clear and straw in color. pts has been given pain meds twice during shift. pt is alert and oriented X4.
[2020-10-21 05:32] LABS: POC Glucose,Bedside 135 (70-110)
[2020-10-21 06:00] VITALS: BMI 33.4
[2020-10-21 07:58] VITALS: BP 131/48; PULSE 83; RESP 16; TEMP 36.9; O2SAT 99
--- NOTE | 2020-10-21 08:16 | HMH.ACPN2 ---
<Nakia Fuentes - Last Filed: 10/21/20 08:39> Internal Medicine - PN: Subj *Date: 10/21/20 *Time: 08:39 Interval history: Patient states his legs seem to be better. He states he cannot walk. He is most concerned about his ongoing weight loss. He states he is unable to eat and has no interest in eating regularly. He has a little nausea but denies abdominal pain. He states that his bowels are moving normally. He states he drinks plenty of fluids and voids QS. He denies chest pain and shortness of breath. Legs continued to hurt but pain is better. Receiving mostly IV morphine for the pain. Exam Vital signs and Labs for Last 24 Hours: Temp Pulse Resp BP Pulse Ox 98.4 F 83 16 131/48 L 99 10/21/20 07:58 10/21/20 07:58 10/21/20 07:58 10/21/20 07:58 10/21/20 07:58 Laboratory Results - last 24 hr 10/20/20 12:03: POC Glucose 153 H 10/20/20 17:16: POC Glucose 190 H 10/20/20 20:12: POC Glucose 195 H 10/21/20 05:17: POC Glucose 135 H I & O for Last 24 hours: Intake & Output 10/18/20 10/19/20 10/20/20 10/21/20 11:59 11:59 11:59 11:59 Intake Total 1325 / 1325 2037 / 2037 2247 / 2247 Output Total 715 / 715 670 / 670 650 / 650 Balance 610 / 610 1367 / 1367 1597 / 1597 Weight 250 lb 252 lb 7 oz 251 lb 3 oz 252 lb Microbiology Reports for the Last 24 Hours: Microbiology 10/19/20 01:30 Rectum CRE Surveillance Culture - Final - Constitutional no acute distress Comments: Conversant. Appears comfortable. - *Routine Respiratory Exam Present: CTA bilaterally (Anteriorly and posteriorly) - *Routine Cardiovascular Exam Present: RRR - *Routine Abdominal Exam Present: soft, normoactive bowel sounds. Absent: tenderness, distended, organomegaly - *Routine Extremities Exam Present: edema (bilaterall scabs on lower legs with surrounding erythema) - *Routine Neurological Exam Present: alert, oriented X3 Has poor movement of legs Assessment and Plan (1) Accidental fall Status: Acute Qualifiers: Encounter type: initial encounter Qualified Code(s): W19.XXXA - Unspecified fall, initial encounter Category: Medical Code(s): W19.XXXA - Unspecified fall, initial encounter (2) Rhabdomyolysis Status: Acute Category: Medical Code(s): M62.82 - Rhabdomyolysis (3) Nausea Status: Acute Category: Medical Code(s): R11.0 - Nausea (4) Weakness Status: Acute Category: Medical Code(s): R53.1 - Weakness (5) Fatigue Status: Acute Category: Medical Code(s): R53.83 - Other fatigue (6) Bilateral lower leg cellulitis Status: Acute Category: Medical Code(s): L03.116 - Cellulitis of left lower limb; L03.115 - Cellulitis of right lower limb (7) Sprain of left hip Status: Acute Qualifiers: Encounter type: initial encounter Qualified Code(s): S73.102A - Unspecified sprain of left hip, initial encounter Category: Medical Code(s): S73.102A - Unspecified sprain of left hip, initial encounter (8) Diabetes mellitus Status: Acute Qualifiers: Diabetes mellitus type: type 2 Diabetes mellitus fpc insulin use: with long distance operator use Diabetes mellitus complication status: with other specified complication Qualified Code(s): E11.69 - Type 2 diabetes mellitus with other specified complication; Z79.4 - [facility] (current) use of insulin Category: Medical Code(s): E11.9 - Type 2 diabetes mellitus without complications (9) Lumbar spinal stenosis Status: Acute Qualifiers: Neurogenic claudication status: unspecified Qualified Code(s): M48.061 - Spinal stenosis, lumbar region without neurogenic claudication Category: Medical Code(s): M48.061 - Spinal stenosis, lumbar region without neurogenic claudication (10) PVD (peripheral vascular disease) Status: Acute Category: Medical Code(s): I73.9 - Peripheral vascular disease, unspecified (11) Cervical spinal stenosis Status: Chronic Category: Medical Code
--- NOTE | 2020-10-21 10:05 | SW/DCPLANNER ---
RECEIVED REFERRAL FOR HOME HEALTH SERVICES... PATIENT WISHES TO USE [facility] STATING HE HAS USE THEM BEFORE... HE IS DISCHARGING HOME TODAY AND WILL RECEIVE HOME HEALTH SKILLED NSG AND PT EVAL AND TREAT... DISCHARGE HOME LATER IN THE DAY...
--- NOTE | 2020-10-21 10:11 | PC.NURSE ---
PT STATES THAT HE WOULD RATHER TAKE HIS MORNING MEDICINES AT HOME INSTEAD OF HERE AT THE HOSPITAL. AMBULANCE IS HERE FOR PT TRANSPORT AT THIS TIME.
--- NOTE | 2020-10-21 14:06 | HMH.DCSUM ---
General - General Admission date:: 10/18/20 Discharge date: 10/21/20 HPI HPI: Mr. Pool was a 65-year-old male who presented to the emergency department after an accidental fall. The patient did have a prolonged downtime secondary to being unable to get off the floor by himself. Patient was provided analgesics and work-up was initiated. On reevaluation, patient was feeling much better. His range of motion was improved. Pain was improved. CT did not show any injury or cranial abnormalities or fracture of the hip. Patient did have a slightly elevated CK, likely from his prolonged laying on the floor, as well as elevated WBC at 13.8. He was urinating without any difficulties. He was offered admission for observation, however the patient preferred to go home as he was feeling much better. It was explained to him that he needed repeat examination in 24 hours by PCP or return to the emergency department and he verbalized understanding. Upon going to reevaluate the patient, he stated that his pain was getting worse. With attempt to get him up in a wheelchair, he stated that he was unable secondary to the pain. Given his worsening debility, he was admitted to the hospital for further evaluation and treatment. (above as per ER physician) The patient stated he had been wheelchair-bound for the past year due to spinal stenosis and previous back surgeries. He had had numerous falls in the prior few weeks. He was a patient of Dr. Orellana and Dr. Tan was his spinal surgeon. He stated he had had weakness and nausea along with lack of appetite for the prior few weeks and he was evaluated by Dr. Orellana who did blood work and told him everything was normal at that time. He was currently living alone but did have family nearby. He was retired from [employer]. He had multiple abrasions and bruising on his legs from his falls, as well as cellulitis for which he was started on Rocephin IV. Hospital Course Hospital Course: The following morning he was feeling about the same with weakness and bilateral lower extremity discomfort. He had not rested well. His nausea was slightly improved. He was continued on IV antibiotics. By the morning of 10/20/2020, he was feeling better although he continued with some lower extremity discomfort. His WBC had normalized and erythema of the anterior legs was fading. Some of his home medications were restarted and oxycodone was added for pain. He continued to improve, although he did not regain the ability to walk, and by 10/21/2020 he was felt stable for discharge home on oral antibiotics with home health and plan for follow up with Dr. Orellana in about 10 days. Objective Vital signs: Temp Pulse Resp BP Pulse Ox 98.4 F 83 16 131/48 L 99 10/21/20 07:58 10/21/20 07:58 10/21/20 07:58 10/21/20 07:58 10/21/20 07:58 Results Labs on day of discharge: Labs from last 24 hours 10/21/20 10/20/20 10/20/20 05:17 20:12 17:16 POC Glucose 135 H 195 H 190 H DS: Diagnosis - Discharge Diagnosis (1) Accidental fall Status: Acute (2) Rhabdomyolysis Status: Acute (3) Nausea Status: Acute (4) Weakness Status: Acute (5) Fatigue Status: Acute (6) Bilateral lower leg cellulitis Status: Acute (7) Sprain of left hip Status: Acute (8) Diabetes mellitus Status: Acute (9) Lumbar spinal stenosis Status: Acute (10) PVD (peripheral vascular disease) Status: Acute (11) Cervical spinal stenosis Status: Chronic (12) Seizure disorder Status: Acute (13) Debility Status: Acute Discharge Plan - Patient Discharge Instructions ACTIVITY: Continue current activity DIET: continue same diet Additional Instructions: Patient needs home health care for PT, OT and nursing. Patient Instructions: DI for Cellulitis -- Adult - Follow up Plan Follow up with: John Paul Orellana [Primary Care Provider] - 10/30/20 1:15 pm Disposition: Home [place]
== END 2020-10-21 10:21 | disposition home health service (06) ==
LOC: ER 12:22 → 2ND 15:13
PROVIDERS: Admitting Provider Family Medicine; Emergency Provider Emergency Medicine; PCP Family Medicine; Visit Provider Family Medicine
DX: L03.115 Cellulitis of right lower limb (principal); L03.116 Cellulitis of left lower limb; M48.061 Spinal stenosis, lumbar region without neurogenic claudication; M48.02 Spinal stenosis, cervical region; Z99.3 Dependence on wheelchair; Z91.81 History of falling; R29.6 Repeated falls; M62.82 Rhabdomyolysis; S73.102A Unspecified sprain of left hip, initial encounter; E11.9 Type 2 diabetes mellitus without complications; Z79.84 Long term (current) use of oral hypoglycemic drugs; Z79.82 Long term (current) use of aspirin; Z79.899 Other long term (current) drug therapy; I10 Essential (primary) hypertension; G40.909 Epilepsy, unspecified, not intractable, without status epilepticus
CPT/HCPCS: 36415; 70450; 71045; 73502; 73552; 73700; 80048; 80053; 81001; 82550; 82962; 85025; 86328; 87081; 93005; 96365; 96372; 96375; 96376; 99285; G0378; J2405; U0003

== ENCOUNTER 2020-10-25 20:00 | Observation (INO) | payer MEDICARE, SELFPAY ==
[2020-10-25] VITALS (7 sets, daily range): BP systolic 124–153; BP diastolic 63–104; PULSE 73–97; RESP 15–16; TEMP 36.1–36.9; O2SAT 98–100; BMI 31.4
--- NOTE | 2020-10-25 20:04 | XR_ITS ---
PROCEDURE: XR CHEST PORTABLE Referring Doctor: King Mcclure Patient Age:65Y CLINICAL HISTORY: frequent falls COMPARISON: CR XR CHEST AP from 04/22/[address] ANGIO CHEST from 03/27/2020 CR XR CHEST PORTABLE from 03/27/2020 CR XR CHEST PORTABLE from 10/18/2020 FINDINGS: Limited portable supine chest performed today-patient difficult to position with 3 CXR images were performed to image entire chest No acute findings at the chest but the lungs are well expanded and clear with nothing definitely acute. A borderline cardiomegaly. Calcified aortic knob. Yanira and mediastinal structures underlies unremarkable. The pulmonary vasculature appears satisfactory for supine study noting the slight accentuation of upper lobe vascularity due to the supine position. The chest wall unremarkable. Marginal osteophytes throughout T-spine again observed. No pneumothorax but no pleural effusion. IMPRESSION: nothing definitely acute. Lungs appear clear and stable. Borderline cardiomegaly Dictated by: Sudeep Ny MD 10/26/2020 11:31 Sudeep Ny MD in [facility] 10/26/2020 11:31
--- NOTE | 2020-10-25 20:04 | XR_ITS ---
PROCEDURE: XR PELVIS 1-2V Referring Doctor: King Mcclure Patient Age:65Y CLINICAL INDICATION: frequent falls COMPARISON: CR XR HIP LT 2-3V W/PELVIS from 10/18/2020 TECHNIQUE: XR Pelvis AP View FINDINGS: Today's AP portable pelvis is compared to non portable study pelvis and left hip from October 18 Today's portable image of pelvis is less optimal than previous study No fracture or dislocation is evident at the pelvis. . Osseous pelvis appears stable and intact. Prominent degenerative arthritic changes at left hip with joint space narrowing and sclerosis about the narrowed joint again observed-stable. Only mild degenerative changes in comparison of the right hip. The iliac bone, pubis, superior and inferior ramus intact. Sacrum grossly unremarkable . IMPRESSION: No acute findings. Osseous pelvis stable and intact, with the advanced arthritic changes most evident at the left hip again noted Dictated by: Sudeep Ny MD 10/26/2020 11:33 Sudeep Ny MD in [facility] 10/26/2020 11:33
--- NOTE | 2020-10-25 20:04 | CT_ITS ---
PROCEDURE: CT HEAD/BRAIN WO CON Referring Doctor: King Mcclure Patient Age:65Y CLINICAL INDICATION: weakness, frequent falls COMPARISON: CT CT HEAD/BRAIN WO CON from 10/18/2020 TECHNIQUE: No IV contrast. Helical axial a spiral CT images were obtained, with subsequent thickened reconstructions in the axial sagittal and coronal plane. All CT scans at the facility use one or more dose reduction, viz: automated exposure control, ma/kV adjustment per patient size (including targeted exams where dose is matched to indication, i.e. head), or iterative reconstruction technique. FINDINGS: No acute intracranial findings.. No intracranial hemorrhage.. No territorial infarct evident Minimal cerebral atrophy generally age-appropriate with mild accentuates the sulci particularly at the posterior cerebral hemispheres bilaterally No hydrocephalus.The ventricles and basal cisterns appear clear and satisfactory. No mass or midline shift nor mass effect. No subdural or extra-axial fluid collection is evident. Minimal calcification at the left carotid siphon Sella, pituitary region unremarkable suprasellar cistern unremarkable. posterior fossa unremarkable. Cerebellar hemispheres and 4th ventricle unremarkable. Cervical cranial junction satisfactory Skull intact- . Numerous dermal calcifications at scalp Mastoid air cells well developed and well aerated Middle ear clear. IAC's symmetric. Nosinus air-fluid level. Mild mucosal thickening at left ethmoid air cells superiorly maxillary sinuses clear able. IMPRESSION: No acute intracranial findings Dictated by: Sudeep Ny MD 10/26/2020 11:28 Sudeep Ny MD in [facility] 10/26/2020 11:28
--- NOTE | 2020-10-25 20:06 | ECG_ITS ---
APPROVED REPORT Exam: Resting ECG HR:92 bpm ECG Measurements Heart Rate 92 AXES VA 136 P 67 QRSd 104 QRS 79 QT 366 T 54 QTc 452 Conclusion Sinus rhythm with occasional premature ventricular complexes Isolated Q in III Abnormal ECG Electronically signed by : Gustavo Leggett, 10/26/2020 07:37:29
[2020-10-25 20:12] LABS: Basophils # 0.1 K/mm3 (0-0.2); Basophils % 0.6 % (0.1-2.0); Eosinophils # 0.3 K/mm3 (0.0-0.4); Eosinophils % 2.3 % (0.1-12.0); Hematocrit 41.5 % (42.0-52.0); Lymphocytes # 2.2 K/mm3 (0.7-4.5); Lymphocytes % 15.4 % (10-50); Mean Corpuscular HGB Conc 31.4 g/dL (31.8-35.4); Mean Corpuscular Hemoglobin 26.3 pg (27.0-31.2); Mean Corpuscular Volume 83.8 fl (80-94); Mean Platelet Volume 7.7 fl (7.4-10.4); Monocytes # 0.8 K/mm3 (0.1-1.0); Monocytes % 5.3 % (1.7-9.3); Neutrophils # 10.9 K/mm3 (1.8-7.8); Neutrophils % 76.4 % (37.0-80.0); Platelet Count 317 K/mm3 (142-424); Red Blood Count 4.95 M/mm3 (4.60-6.20); Red Cell Distribution Width 15.3 % (11.5-17.5); White Blood Count 14.2 K/mm3 (4.8-10.8)
[2020-10-25 20:19] LABS: Alanine Aminotransferase 22 U/L (12-78); Albumin Level 4.6 g/dl (3.5-5.0); Albumin/Globulin Ratio 1.1 (1.1-1.8); Alkaline Phosphatase 114 U/L (38-126); Anion Gap 14.4 mEq/L (5-15); Aspartate Amino Transferase 30 U/L (17-59); Bilirubin,Total 0.3 mg/dl (0.2-1.3); Blood Urea Nitrogen 33 mg/dl (9-20); Calcium 10.3 mg/dl (8.4-10.2); Carbon Dioxide 28 mmol/L (22.0-30.0); Chloride 105 mmol/L (98-107); Creatine Kinase 177 U/L (55-170); Creatinine Clearance Estimated 114 mL/min (50-200); Estimated Glomerular Filt Rate 113 ml/min (>60); GFR (African American) 137 ML/MIN (>60); Globulin 4.1 g/dL (1.3-3.2); Glucose 119 mg/dl (74-100); Phosphorous 4.1 mg/dl (2.5-4.5); Potassium 4.4 mmoL/L (3.5-5.1); Sodium 143 mmol/L (136-145); Total Protein,Serum 8.7 g/dl (6.3-8.2)
[2020-10-25 20:25] LABS: Lactic Acid 1.2 mmol/L (0.7-2.1)
[2020-10-25 20:31] LABS: Creatine Kinase MB 3.9 ng/ml (0.0-2.03)
[2020-10-25 20:34] LABS: Troponin I < 0.01 ng/ml (0.00-0.034)
[2020-10-25 20:37] LABS: Procalcitonin 0.072 ng/mL (0.0-2.0)
--- NOTE | 2020-10-25 20:40 | HMH.EDGENADL ---
ED Disposition Clinical Impression: Fatigue Qualifiers: Fatigue type: other Qualified Code(s): R53.83 - Other fatigue Cellulitis Qualifiers: Site of cellulitis: extremity Site of cellulitis of extremity: lower extremity Laterality: unspecified laterality Qualified Code(s): L03.119 - Cellulitis of unspecified part of limb Disposition: Admitted As Inpatient Condition on Discharge: Fair Referrals: PCP,No [Primary Care Provider] - - Critical Care Critical Care Time: No Attestation: On 10/25/20, the high probability of a clinically significant, sudden or life threatening deterioration of the following system(s) required my full and direct attention, intervention and personal management. The time I documented below is in addition to time spent performing reported procedures but includes the following listed in this critical care notation. Medical Decision Making - Medical Records Medical records reviewed: Yes: I reviewed the patient's medical records. - Lex Inquiry Pt receiving controlled substance: No Vital Signs: 10/25/20 19:54 10/25/20 19:56 10/25/20 20:54 Temperature 97 F L 98.4 F Temperature Source Oral Oral Pulse Rate [Right Brachial] 97 H 89 91 H Respiratory Rate 16 16 16 Blood Pressure [Left Arm] 152/80 H Blood Pressure [Right Arm] 152/78 H 151/104 H 134/63 Blood Pressure Mean [Left Arm] 104 Blood Pressure Mean [Right Arm] 102 119 86 Blood Pressure Source [Left Arm] Manual Cuff/ Auscultation Blood Pressure Source [Right Arm] Manual Cuff/ Auscultation Automatic Cuff Automatic Cuff Blood Pressure Position [Left Arm] Supine Blood Pressure Position [Right Arm] Supine Sitting Supine 02 Sat by Pulse Oximetry 100 98 100 Oxygen Delivery Method Room Air Room Air Room Air - Lab Data Lab results reviewed: Yes: I reviewed the patient's lab results. Lab Results 10/25/20 20:00: WBC 14.2 H, RBC 4.95, Hgb 13.0 L, Hct 41.5 L, MCV 83.8, MCH 26.3 L, MCHC 31.4 L, RDW 15.3, Plt Count 317, MPV 7.7, Neut % (Auto) 76.4, Lymph % (Auto) 15.4, [place] % (Auto) 5.3, Eos % (Auto) 2.3, Baso % (Auto) 0.6, Neut # (Auto) 10.9 H, Lymph # (Auto) 2.2, [place] # (Auto) 0.8, Eos # (Auto) 0.3, Baso # (Auto) 0.1 10/25/20 20:00: Sodium 143, Potassium 4.4, Chloride 105, Carbon Dioxide 28, Anion Gap 14.4, BUN 33 H, Creatinine 0.70, Estimated Creat Clear 114, Estimated GFR 113, Est GFR ( Amer) 137, Glucose 119 H, Calcium 10.3 H, Phosphorus 4.1, Magnesium 2.0, Total Bilirubin 0.3, AST 30, ALT 22, Alkaline Phosphatase 114, Total Creatine Kinase 177 H, CK-MB (CK-2) 3.9 H, Troponin I < 0.01, Total Protein 8.7 H, Albumin 4.6, Globulin 4.1 H, Albumin/Globulin Ratio 1.1 10/25/20 20:00: Lactate 1.2 10/25/20 20:00: Procalcitonin 0.072 Result diagrams: 10/25/20 20:00 10/25/20 20:00 Orders (Tests/Meds): ED MEDICATIONS Generic Name Dose Route Start Last Admin Trade Name Freq PRN Reason Stop Dose Admin Vancomycin HCl 2,000 mg/ 250 mls @ 125 mls/hr 10/25/20 20:45 10/25/20 21:02 Sodium Chloride IV 11/08/20 20:44 125 mls/hr Q18H DEEPTI Administration Protocol Methocarbamol 500 mg 10/25/20 21:00 Methocarbamol 500mg Tablet PO 11/24/20 20:59 BID DEEPTI Miscellaneous 1 each 10/25/20 20:30 10/25/20 20:42 Vancomycin Consult Request * 11/24/20 20:29 1 each CONSULT PHARMACY DEEPTI Administration Discontinued Medications Generic Name Dose Route Start Last Admin Trade Name Freq PRN Reason Stop Dose Admin Sodium Chloride 1,000 mls @ 999 mls/hr 10/25/20 20:15 10/25/20 20:33 Sod Chlor 0.9% 1000ml Bag IV 10/25/20 21:15 999 mls/hr .Q1H1M DEEPTI Administration ORDERS Category Date Time Status CT head/brain wo con Stat Cat Scan 10/25/20 20:04 Taken Chest XR -- portable [XR chest portable] Stat Exams 10/25/20 20:04 Taken XR pelvis 1-2V Stat Exams 10/25/20 20:04 Taken Covid-19 Nasal PCR ([place]) Routine Lab 10/25/20 20:58 Received Troponin I Q3H Lab 10/25/20 23:15 Ordered Troponin I Q3H Lab
[2020-10-25 22:06] LABS: Microscopic, Urine URINE MICROSCOPIC (MICROSCOPIC)
[2020-10-25 22:11] LABS: Appearance,Urine CLEAR (Clear); Bilirubin,Urine Negative (Negative); Blood, Urine Negative (Negative); Color,Urine YELLOW (Yellow); Glucose,Urine (UA) Negative (Negative); Ketones,Urine Negative (Negative); Leukocyte Esterase,Urine Negative (Negative); Nitrate,Urine Negative (Negative); Protein,Urine Negative (Negative); Urobilinogen,Urine 0.2 EU/dl (0.2)
[2020-10-25 22:14] LABS: Amorphous Sediment,Urine Trace /lpf
[2020-10-26] VITALS (7 sets, daily range): BP systolic 131–146; BP diastolic 73–93; PULSE 89–105; RESP 18–19; TEMP 36.3–36.9; O2SAT 98–99; BMI 35.0; BMI 35.2
--- NOTE | 2020-10-26 | PC.NURSE ---
blood or blood bank technician informed nursing patient was in the floor. pt had attempted to get up to use the urinal and slid down on his butt. no injury noted. aware. no new orders.
--- NOTE | 2020-10-26 00:06 | PC.NURSE ---
PT ARRIVED TO FLOOR VIA W/C FROM ED WITH STAFF AT 0000.
--- NOTE | 2020-10-26 02:16 | PC.WOUNDNOTE ---
Wound Location: redness, warmth, scattered scabs Length:bilareral lower extermities Width: Depth: Undermining Y/N: Tunneling cm: Granulation %: Slough/necrotic tissue %: Inflammation/swelling Y/N: y Pain and/or tenderness Y/N: y Exudate: Serosanguinous Sanguinous Serosanguinous Seropurulent Purulent Color: Clear Jamee Cloudy/milky [place] Red Green Yellow Brown Gut[place] Blue Consistency: Thick Thin Amount: None Scant Small Moderate Large Odor Y/N:
--- NOTE | 2020-10-26 02:17 | PC.WOUNDNOTE ---
Wound Location: bilateral lower extermites, redness, warmth, edema, scattered scabs Length: Width: Depth: Undermining Y/N: Tunneling cm: Granulation %: Slough/necrotic tissue %: Inflammation/swelling Y/N: y Pain and/or tenderness Y/N: y Exudate: Serosanguinous Sanguinous Serosanguinous Seropurulent Purulent Color: Clear Jamee Cloudy/milky [place] Red Green Yellow Brown Gutierrez Blue Consistency: Thick Thin Amount: None Scant Small Moderate Large Odor Y/N:
--- NOTE | 2020-10-26 02:18 | PC.WOUNDNOTE ---
Addendum entered by Teresita Vasquez RN 10/26/20 02:18: right foot scabs to toes Original Note: Wound Location: Length: Width: Depth: Undermining Y/N: Tunneling cm: Granulation %: Slough/necrotic tissue %: Inflammation/swelling Y/N: Pain and/or tenderness Y/N: Exudate: Serosanguinous Sanguinous Serosanguinous Seropurulent Purulent Color: Clear Jamee Cloudy/milky [place] Red Green Yellow Brown Gutierrez Blue Consistency: Thick Thin Amount: None Scant Small Moderate Large Odor Y/N:
--- NOTE | 2020-10-26 02:19 | PC.WOUNDNOTE ---
Wound Location: left foot scabs and scratches Length: Width: Depth: Undermining Y/N: Tunneling cm: Granulation %: Slough/necrotic tissue %: Inflammation/swelling Y/N: Pain and/or tenderness Y/N: Exudate: Serosanguinous Sanguinous Serosanguinous Seropurulent Purulent Color: Clear Jamee Cloudy/milky [place] Red Green Yellow Brown Gutierrez Blue Consistency: Thick Thin Amount: None Scant Small Moderate Large Odor Y/N:
--- NOTE | 2020-10-26 04:45 | PC.NURSE ---
Addendum entered by Teresita Vasquez RN 10/26/20 04:52: pt was admitted for cellulitis to [facility] and frequent falls at home. Original Note: pt is sleeping at this time. prn pain medication and anxiety medication given per mar with relief after admission. pt was very restless on arrival to floor. iv patent. vss. bed safety in on. call light in reach. will continue to monitor
[2020-10-26 06:42] LABS: Basophils # 0.1 K/mm3 (0-0.2); Basophils % 0.7 % (0.1-2.0); Eosinophils # 0.5 K/mm3 (0.0-0.4); Eosinophils % 4.4 % (0.1-12.0); Hematocrit 37.2 % (42.0-52.0); Hemoglobin 11.9 g/dL (14.1-18.0); Mean Corpuscular HGB Conc 32.1 g/dL (31.8-35.4); Mean Platelet Volume 7.8 fl (7.4-10.4); Monocytes # 0.6 K/mm3 (0.1-1.0); Monocytes % 5.7 % (1.7-9.3); Neutrophils # 7.9 K/mm3 (1.8-7.8); Neutrophils % 71.1 % (37.0-80.0); Platelet Count 282 K/mm3 (142-424); Red Blood Count 4.42 M/mm3 (4.60-6.20); Red Cell Distribution Width 15.6 % (11.5-17.5); White Blood Count 11.1 K/mm3 (4.8-10.8)
[2020-10-26 06:51] LABS: Chloride 107 mmol/L (98-107); Potassium 4.5 mmoL/L (3.5-5.1); Sodium 140 mmol/L (136-145)
[2020-10-26 06:54] LABS: Blood Urea Nitrogen 30 mg/dl (9-20); Creatinine Clearance Estimated 117 mL/min (50-200); Estimated Glomerular Filt Rate 113 ml/min (>60); GFR (African American) 137 ML/MIN (>60)
[2020-10-26 06:55] LABS: Anion Gap 11.5 mEq/L (5-15); Calcium 9.6 mg/dl (8.4-10.2); Carbon Dioxide 26 mmol/L (22.0-30.0); Glucose 166 mg/dl (74-100)
--- NOTE | 2020-10-26 07:25 | PC.NURSE ---
pt up to chair max assist this am during morning rounds. chair alarm placed on pt, pt instructed on use of call light and verbalized understanding and demonstrated proper use. pt instructed on importance of using call light for safety. will continue to monitor.
--- NOTE | 2020-10-26 08:30 | HMH.PHACONS ---
- Pharmacy Consult Date: 10/26/20 Time: 08:30 Referring provider: DR. HINDS Reason for Consult:: VANCOMYCIN DOSING Allergies and ADEs:: Allergies Allergy/AdvReac Type Severity Reaction Status Date / Time acetaminophen [From LORTAB] Allergy Unknown NA-NAUSEA/V Verified 04/22/19 20:53 OMITING hydrocodone [From LORTAB] Allergy Unknown NA-NAUSEA/V Verified 04/22/19 20:53 OMITING tramadol AdvReac Unknown Verified 10/18/20 15:39 allergy reaction Home Medications:: Home Medications Medication Instructions Recorded Confirmed Type Aspirin [Aspirin 81mg EC Tab] 81 mg PO DAILY 04/22/19 10/26/20 History Atorvastatin Calcium [Lipitor 40mg 40 mg PO HS 04/22/19 10/26/20 History Tab] Benazepril HCl 40 mg PO DAILY 04/22/19 10/26/20 History Metformin HCl [Metformin 1000mg 1,000 mg PO BID 04/22/19 10/26/20 History Tablets] lamoTRIgine [Lamotrigine] 200 mg PO BID 04/22/19 10/26/20 History Baclofen 20 mg PO TID 03/27/20 10/26/20 History diazePAM [diazePAM 5mg Tablet] 5 mg PO BIDP PRN 03/27/20 10/25/20 History glipiZIDE [Glipizide] 5 mg PO BID 03/27/20 10/26/20 History Amlodipine Besylate [Amlodipine 10 mg PO DAILY 10/19/20 10/26/20 History 10mg Tab] Metoprolol Succinate [Metoprolol 25 mg PO DAILY 10/19/20 10/26/20 History Succinate 25mg Tablet*] Triamcinolone Acetonide 0 gm TOPICAL BIDP PRN 10/19/20 10/25/20 History ondansetron HCL [Ondansetron 4mg 4 mg PO TIDP PRN 10/19/20 10/26/20 History tab*] Cefdinir [Omnicef 300mg Capsule] 300 mg PO BID 10/25/20 10/26/20 History Height: 1.8 m Weight: 114.078 kg Laboratory Results:: Laboratory Results - last 24 hr 10/25/20 20:00: WBC 14.2 H, RBC 4.95, Hgb 13.0 L, Hct 41.5 L, MCV 83.8, MCH 26.3 L, MCHC 31.4 L, RDW 15.3, Plt Count 317, MPV 7.7, Neut % (Auto) 76.4, Lymph % (Auto) 15.4, [place] % (Auto) 5.3, Eos % (Auto) 2.3, Baso % (Auto) 0.6, Neut # (Auto) 10.9 H, Lymph # (Auto) 2.2, [place] # (Auto) 0.8, Eos # (Auto) 0.3, Baso # (Auto) 0.1 10/25/20 20:00: Sodium 143, Potassium 4.4, Chloride 105, Carbon Dioxide 28, Anion Gap 14.4, BUN 33 H, Creatinine 0.70, Estimated Creat Clear 114, Estimated GFR 113, Est GFR ( Amer) 137, Glucose 119 H, Calcium 10.3 H, Phosphorus 4.1, Magnesium 2.0, Total Bilirubin 0.3, AST 30, ALT 22, Alkaline Phosphatase 114, Total Creatine Kinase 177 H, CK-MB (CK-2) 3.9 H, Troponin I < 0.01, Total Protein 8.7 H, Albumin 4.6, Globulin 4.1 H, Albumin/Globulin Ratio 1.1 10/25/20 20:00: Lactate 1.2 10/25/20 20:00: Procalcitonin 0.072 10/25/20 21:50: Urine Color Yellow, Urine Appearance Clear, Urine pH 6.0, Ur Specific [place] 1.020, Urine Protein Negative, Urine Glucose (UA) Negative, Urine Ketones Negative, Urine Blood Negative, Urine Nitrate Negative, Urine Bilirubin Negative, Urine Urobilinogen 0.2, Ur Leukocyte Esterase Negative, Amorphous Sediment Trace 10/26/20 06:32: WBC 11.1 H, RBC 4.42 L, Hgb 11.9 L, Hct 37.2 L, MCV 84.0, MCH 27.0, MCHC 32.1, RDW 15.6, Plt Count 282, MPV 7.8, Neut % (Auto) 71.1, Lymph % (Auto) 18.0, [place] % (Auto) 5.7, Eos % (Auto) 4.4, Baso % (Auto) 0.7, Neut # (Auto) 7.9 H, Lymph # (Auto) 2.0, [place] # (Auto) 0.6, Eos # (Auto) 0.5 H, Baso # (Auto) 0.1 10/26/20 06:32: Sodium 140, Potassium 4.5, Chloride 107, Carbon Dioxide 26, Anion Gap 11.5, BUN 30 H, Creatinine 0.70, Estimated Creat Clear 117, Estimated GFR 113, Est GFR ( Amer) 137, Glucose 166 H D, Calcium 9.6 Medical History: Reports:: Arrhythmia, Atrial Fibrillation, Diabetes Mellitus Type 2, Hyperlipidemia, Hypertension, Seizures Denies:: Cancer, Diabetes Mellitus Type 1, MRSA Assessment and Plan - Assessment and plan all Dx Assessment and Plan for all problems:: Pharmacokinetic dosing service Objective: Patient: Floor: Age: 65 yo Serum creatinine: 0.70 mg/dL Height: 70.9 Inches Weight (kg): 114.1 Assessment: IBW (kg): 75.07 Dosi
--- NOTE | 2020-10-26 08:57 | HMH.HP ---
*Admission Date: 10/25/20 *Chief complaint: Fall at home *History of present illness: Mr. Pool is a 65 year old patient of Dr. John Paul Orellana who is being readmitted to [facility] due to frequent falls and leg cellulitis. Patient was hospitalized from 10/18/20 to 10/21/20 for the very same issues that he presents for today. He has chronic back and leg pain and is unable to walk due to lumbar spinal stenosis which he has previously had surgical treatment. He has skin wounds on both legs with surrounding cellulitis. In his previous admission he adamantly refused nursing placement and wanted to be discharged home with home health care. Since being home, he has fallen multiple times and has called neighbors and family members to pick him up. [facility] History Medical History: Reports:: Arrhythmia, Atrial Fibrillation, Diabetes Mellitus Type 2, Hyperlipidemia, Hypertension, Seizures Denies:: Cancer, Diabetes Mellitus Type 1, MRSA *Have you ever received a pneumonia vaccine?: Yes *Have you received a flu vaccine this season?: Yes Other Surgeries: Yes: Other (back surgery, lumbar spine, unknown date) Amputation: No Fractures: No - *Social History Smoking Status: Former smoker Tobacco Type: cigarettes Alcohol Intake: never Alcohol Intake Frequency:: holidays/special occasions only Substance Use Type: marijuana *Occupational Status:: retired Household Members: family *Travel in the last 8 weeks: None Family Hx:: Hypertension Review of Systems - Constitutional Denies fever(s) - Eyes Denies blurry vision - ENT Denies change in voice - *Cardiovascular Denies chest pain - *Respiratory Denies cough - *Gastrointestinal Denies abdominal pain - *Genitourinary Denies difficulty urinating - *Musculoskeletal Reports back pain - Integumentary/Breasts Reports redness (both lower legs) - *Neurologic Reports frequent falls, Denies headache(s) - Endocrine Reports increased urination Meds Home Medications Medication Instructions Recorded Confirmed Type Aspirin [Aspirin 81mg EC Tab] 81 mg PO DAILY 04/22/19 10/26/20 History Atorvastatin Calcium [Lipitor 40mg 40 mg PO HS 04/22/19 10/26/20 History Tab] Benazepril HCl 40 mg PO DAILY 04/22/19 10/26/20 History Metformin HCl [Metformin 1000mg 1,000 mg PO BID 04/22/19 10/26/20 History Tablets] lamoTRIgine [Lamotrigine] 200 mg PO BID 04/22/19 10/26/20 History Baclofen 20 mg PO TID 03/27/20 10/26/20 History diazePAM [diazePAM 5mg Tablet] 5 mg PO BIDP PRN 03/27/20 10/25/20 History glipiZIDE [Glipizide] 5 mg PO BID 03/27/20 10/26/20 History Amlodipine Besylate [Amlodipine 10 mg PO DAILY 10/19/20 10/26/20 History 10mg Tab] Metoprolol Succinate [Metoprolol 25 mg PO DAILY 10/19/20 10/26/20 History Succinate 25mg Tablet*] Triamcinolone Acetonide 0 gm TOPICAL BIDP PRN 10/19/20 10/25/20 History ondansetron HCL [Ondansetron 4mg 4 mg PO TIDP PRN 10/19/20 10/26/20 History tab*] Cefdinir [Omnicef 300mg Capsule] 300 mg PO BID 10/25/20 10/26/20 History Allergies Allergy/AdvReac Type Severity Reaction Status Date / Time acetaminophen [From LORTAB] Allergy Unknown NA-NAUSEA/V Verified 04/22/19 20:53 OMITING hydrocodone [From LORTAB] Allergy Unknown NA-NAUSEA/V Verified 04/22/19 20:53 OMITING tramadol AdvReac Unknown Verified 10/18/20 15:39 allergy reaction Exam Vital signs and Labs for Last 24 Hours: Temp Pulse Resp BP Pulse Ox 97.8 F 100 H 18 146/93 H 98 10/26/20 08:00 10/26/20 08:00 10/26/20 08:00 10/26/20 08:00 10/26/20 08:00 Laboratory Results - last 24 hr 10/25/20 20:00: WBC 14.2 H, RBC 4.95, Hgb 13.0 L, Hct 41.5 L, MCV 83.8, MCH 26.3 L, MCHC 31.4 L, RDW 15.3, Plt Count 317, MPV 7.7, Neut % (Auto) 76.4, Lymph % (Auto) 15.4, [place] % (Auto) 5.3, Eos % (Auto) 2.3, Baso % (Auto) 0.6, Neut # (Auto) 10.9 H, Lymph # (Auto) 2.2, [place] # (Auto) 0.8, Eos # (Auto) 0.3, Baso # (Auto) 0.1 10/25/20 20:00: Sodium 143, Potassium 4.4, Chlori
--- NOTE | 2020-10-26 10:16 | HMH.PHAINT ---
MEDICATION RECONCILIATION COMPLETED ON PATIENT USING EXTERNAL FILL HISTORY FROM PHARMACY, DISCHARGE SUMMARY FROM PREVIOUS ADMISSION, AND PATIENT'S OWN RX BOTTLES. -MALLIKA BUTCHERD
--- NOTE | 2020-10-26 11:24 | PC.NURSE ---
multiple attempts at educating patient on plan of care. patient is refusing bed alarm. he is alert and oriented. stated he did not want to be bothered and may sign out ama. educated on risks. stated to close door and to not bother him rest of day. educated we would be checking on him. noted patient has been messing with pump and turning it off.
--- NOTE | 2020-10-26 17:49 | PC.NURSE ---
HE IS AOX4, ABLE TO MAKE NEEDS KNOWN TO STAFF, HE HAS BEEN UP TO CHAIR FOR MOST OF SHIFT BUT WENT TO BED AROUND DINNER TIME. HE HAS TOLERATED DIET WELL, HAS NOT C/O PAIN T/O SHIFT, HE HAS REFUSED THE BED ALARM MULTIPLE TIMES AND WAS EDUCATED ON SAFETY PRECAUTIONS. HE DOES NOT TOLERATE TRANSFER WELL AND REQUIRES ASSISTX2, HE DOES NOT REQUIRE O2 SUPPORT, ABD IS SOFT ROUND AND NON-TENDER DENIES N/V/D, USES URINAL FOR ELIMINATION, NO BM NOTED. HE REFUSED TO TAKE METHOCARBOMAL THIS AM STATING THAT IT DOESN'T WORK AND I DON'T WANT TO BE CHARGED FOR A MEDICATION THAT DOESN'T WORK REDNESS NOTED TO BLE ALSO SCATTERED SCABS ARE NOTED BUT NO DRAINAGE PRESENT.BED IN LOW POSITION, SIDE RAILS UP X2, NON-SKIDS IN PLACE, PT UNABLE TO TOLERATE APPLICATION OF REDS R/T SWELLING AND TENDERNESS OF BLE R/T CELLULITIS. NO NEEDS AT THIS TIME. WILL CONTINUE TO MONITOR PT.
--- NOTE | 2020-10-26 19:33 | PC.NURSE ---
FOUND A RED LONG OBLONG PILL ON THE FLOOR IN PTS ROOM, ASKED PT IF HE HAD OTHER MEDS. PT GAVE THIS NURSE A BOTTLE OF EXEDRIN THAT I LOCKED IN THE MED DRAWER, PT DENIED OTHER MEDS IN HIS POSSESSION
[2020-10-27 04:00] VITALS: BP 148/74; PULSE 83; RESP 16; TEMP 36.7; O2SAT 98
--- NOTE | 2020-10-27 04:02 | PC.NURSE ---
Pt A&O x4 and slept on and off through the night. BLE note swelling, erythema, and scabs. Pt c/o pain in legs, oxycodone given per MAR with desired effects. Lungs are clear, pt on RA. Abd soft and nontneder, bowel sounds x4. New IV placed in L forearm, saline locked. bed alarm on, VSS, call light in reach, no concerns at this time.
[2020-10-27 05:00] VITALS: BMI 35.3
[2020-10-27 08:00] VITALS: BP 156/87; PULSE 86; RESP 20; TEMP 37.2; O2SAT 100
--- NOTE | 2020-10-27 10:02 | PC.NURSE ---
DELAYING ADMIN OF MORNING MEDS AT THIS TIME R/T N/V. ADMIN PRN ZOFRAN AWAITING RESOLUTION OF PT SYMPTOMS AT THIS TIME.
--- NOTE | 2020-10-27 10:45 | PC.NURSE ---
ASSISTED PT IN TO BED HE STATES THAT HE IS STILL FEELING NAUSEOUS AND WOULD LIKE TO HOLD OFF ON MORNING MEDS A LITTLE LONGER.
--- NOTE | 2020-10-27 11:11 | P.PN_ITS ---
Internal Medicine - PN: Subj *Date: 10/27/20 *Time: 11:11 Interval history: Patient states he woke up this morning with a lot of nausea, leg pain is worse, swelling has improved a little. Exam Vital signs and Labs for Last 24 Hours: Temp Pulse Resp BP Pulse Ox 98.9 F 86 20 156/87 H 100 10/27/20 08:00 10/27/20 08:00 10/27/20 08:00 10/27/20 08:00 10/27/20 08:00 I & O for Last 24 hours: Intake & Output 10/24/20 10/25/20 10/26/20 10/27/20 23:59 23:59 23:59 23:59 Intake Total 1000 / 1250 1820 / 1820 720 / 720 Output Total 325 / 425 150 / 150 200 / 200 Balance 675 / 825 1670 / 1670 520 / 520 Weight 245 lb 251 lb 8 oz 252 lb 8 oz - Constitutional no acute distress - *Routine HEENT Exam Head: Present: normocephalic Eye: Present: EOMI ENT: Present: mucous membranes moist - *Routine Neck Exam Present: supple. Absent: lymphadenopathy - *Routine Respiratory Exam Present: CTA bilaterally - *Routine Cardiovascular Exam Present: RRR - *Routine Abdominal Exam Present: soft, normoactive bowel sounds. Absent: tenderness - *Routine Extremities Exam Present: edema (1+ bilateral legs). Absent: cyanosis, clubbing - *Routine Skin Exam Present: erythema (has faded slightly today), warm - *Routine Neurological Exam Present: alert, oriented X3, motor deficit (but patient has better strength and ROM today of legs) Assessment and Plan (1) Bilateral lower leg cellulitis Status: Acute Category: Medical Code(s): L03.116 - Cellulitis of left lower limb; L03.115 - Cellulitis of right lower limb (2) Debility Status: Acute Category: Medical Code(s): R53.81 - Other malaise (3) Diabetes mellitus Status: Acute Qualifiers: Diabetes mellitus type: type 2 Diabetes mellitus intermediate insulin use: with terminal computer operator use Diabetes mellitus complication status: with other specified complication Qualified Code(s): E11.69 - Type 2 diabetes mellitus with other specified complication; Z79.4 - skilled nursing (current) use of insulin Category: Medical Code(s): E11.9 - Type 2 diabetes mellitus without complications (4) Lumbar spinal stenosis Status: Acute Qualifiers: Neurogenic claudication status: unspecified Qualified Code(s): M48.061 - Spinal stenosis, lumbar region without neurogenic claudication Category: Medical Code(s): M48.061 - Spinal stenosis, lumbar region without neurogenic claudication (5) Lymphedema of both lower extremities Status: Acute Category: Medical Code(s): I89.0 - Lymphedema, not elsewhere classified (6) PVD (peripheral vascular disease) Status: Acute Category: Medical Code(s): I73.9 - Peripheral vascular disease, unspecified (7) Renal insufficiency Status: Acute Category: Medical Code(s): N28.9 - Disorder of kidney and ureter, unspecified (8) Seizure disorder Status: Acute Category: Medical Code(s): G40.909 - Epilepsy, unspecified, not intractable, without status epilepticus (9) Weakness Status: Acute Category: Medical Code(s): R53.1 - Weakness - Assessment and plan all Dx Assessment and Plan for all problems:: Plan physical therapy evaluation, continue current treatment for cellulitis and leg pain.
[2020-10-27 12:37] LABS: Basophils # 0.1 K/mm3 (0-0.2); Basophils % 0.8 % (0.1-2.0); Eosinophils # 0.4 K/mm3 (0.0-0.4); Eosinophils % 3.8 % (0.1-12.0); Hematocrit 34.7 % (42.0-52.0); Hemoglobin 11.3 g/dL (14.1-18.0); Lymphocytes # 2.2 K/mm3 (0.7-4.5); Lymphocytes % 22.2 % (10-50); Mean Corpuscular HGB Conc 32.5 g/dL (31.8-35.4); Mean Corpuscular Hemoglobin 27.3 pg (27.0-31.2); Mean Corpuscular Volume 83.9 fl (80-94); Mean Platelet Volume 8.4 fl (7.4-10.4); Monocytes # 0.7 K/mm3 (0.1-1.0); Monocytes % 6.7 % (1.7-9.3); Neutrophils # 6.5 K/mm3 (1.8-7.8); Neutrophils % 66.5 % (37.0-80.0); Platelet Count 258 K/mm3 (142-424); Red Blood Count 4.14 M/mm3 (4.60-6.20); Red Cell Distribution Width 15.3 % (11.5-17.5); White Blood Count 9.8 K/mm3 (4.8-10.8)
[2020-10-27 12:44] LABS: Chloride 107 mmol/L (98-107); Sodium 138 mmol/L (136-145)
[2020-10-27 12:45] LABS: Potassium 4.3 mmoL/L (3.5-5.1)
[2020-10-27 12:47] LABS: Alanine Aminotransferase 22 U/L (12-78); Alkaline Phosphatase 96 U/L (38-126); Amylase 44 U/L (30-110); Aspartate Amino Transferase 26 U/L (17-59); Bilirubin,Total 0.5 mg/dl (0.2-1.3); Blood Urea Nitrogen 25 mg/dl (9-20); Creatine Kinase 122 U/L (55-170); Creatinine Clearance Estimated 118 mL/min (50-200); Estimated Glomerular Filt Rate 97 ml/min (>60); GFR (African American) 117 ML/MIN (>60); Lipase 118 U/L (23-300)
[2020-10-27 12:48] LABS: Albumin Level 3.9 g/dl (3.5-5.0); Albumin/Globulin Ratio 1.2 (1.1-1.8); Anion Gap 10.3 mEq/L (5-15); Calcium 9.5 mg/dl (8.4-10.2); Carbon Dioxide 25 mmol/L (22.0-30.0); Globulin 3.2 g/dL (1.3-3.2); Glucose 143 mg/dl (74-100); Total Protein,Serum 7.1 g/dl (6.3-8.2)
--- NOTE | 2020-10-27 12:50 | ECG_ITS ---
APPROVED REPORT Exam: Resting ECG HR:93 bpm ECG Measurements Heart Rate 93 AXES WY 122 P 59 QRSd 102 QRS 67 QT 358 T 53 QTc 445 Conclusion Normal sinus rhythm Normal ECG Electronically signed by : Gustavo Leggett, 10/27/2020 16:00:03
--- NOTE | 2020-10-27 12:53 | PC.NURSE ---
CHECKED ON PT DURING 11 O'CLOCK ROUNDS, PT WAS LAYING ON LEFT SIDE IN THE POSITION WITH TREMORS NOTED TO BUE, PT WAS ASKED MULTIPLE TIMES WHAT WAS WRONG BY STAFF BUT HE WOULD ONLY ANSWER I WILL BE ALRIGHT DR HINDS WAS STILL ON THE FLOOR SO THIS NURSE MADE HIM AWARE OF THE FINDINGS, WHILE AT THE BEDSIDE PT FINALLY ADMITTED TO HAVING STOMACH PAIN AND N/V, DR HINDS ORDERED PHENERGAN 12.5 MG IV, PT IS NOW RESTING COMFORTABLY IN BED, ECG OBTAINED AND WAS INTERPRETED NSR. AWAITING RESULTS OF ORDERED LABS, WILL CONTINUE TO MONITOR PT.
[2020-10-27 12:59] LABS: CKMB Relative Index 1.6 U/L (0-4.0)
[2020-10-27 13:06] LABS: Troponin I < 0.01 ng/ml (0.00-0.034)
--- NOTE | 2020-10-27 13:45 | PC.NURSE ---
Attempted to call PT subscription clerk (Blas). Left message stating there was a PT eval for this pt.
--- NOTE | 2020-10-27 13:48 | PC.NURSE ---
DR HINDS WAS MADE AWARE OF PTS INABILITY TO TAKE PO MEDS DURING ROUNDS THIS AM
--- NOTE | 2020-10-27 15:04 | PC.NURSE ---
PT IS MORE ALERT AT THIS TIME. HE STATES THAT HE DOESN'T KNOW WHAT HAPPENED BUT ANSWERS ORIENTATION QUESTIONS APPROPRIATELY, MORNING MEDS HAVE BEEN ADMIN PER NOV, DR HINDS WAS GIVEN REGULAR UPDATES T/O THE DAY, PT ECG NSR, NO C/O CHEST PAIN. FOLLOWING PHENERAGAN ADMIN PT WAS NOTED TO BE ASLEEP. SINCE WAKING UP HE DENIES PAIN AND N/V. HE HAS TOLERATED RA WELL, TOLERATES DIET WELL. HAS NOT AMBULATED THIS SHIFT, HE IS ABLE TO MAKE NEEDS KNOWN TO STAFF AND ONLY REQUIRES MINIMAL ASSISTANCE USING THE URINAL, HIS ABD IS SOFT ROUND AND NON-TENDER. NO BM THIS SHIFT, NO NEEDS AT THIS TIME
[2020-10-27 15:31] VITALS: BP 150/63; PULSE 71; RESP 18; TEMP 36.7; O2SAT 98
[2020-10-27 19:21] VITALS: BP 136/68; PULSE 83; RESP 18; TEMP 36.7; O2SAT 99
[2020-10-27 21:06] LABS: Vancomycin,Trough 16.3 ug/mL (5.0-10.0)
[2020-10-28 04:00] VITALS: BP 122/66; PULSE 74; RESP 16; TEMP 36.6; O2SAT 98
[2020-10-28 05:00] VITALS: BMI 35.4
--- NOTE | 2020-10-28 05:35 | PC.NURSE ---
Pt A&O x4, has slept on and off through the night. BLE are swollen, note erythema and scabs. Pt has severe weakness and incoordination of legs. Able to take PO meds without difficulty. Pt asked for pain meds x1, valium and oxycodone given per mar. voiding in urinal. pt independent with turns. VSS, call light in reach, no concerns at this time.
[2020-10-28 07:47] VITALS: BP 144/63; PULSE 84; RESP 18; TEMP 36.8; O2SAT 97
--- NOTE | 2020-10-28 09:17 | HMH.ACPN2 ---
<Nakia Fuentes - Last Filed: 10/28/20 09:17> Internal Medicine - PN: Subj *Date: 10/28/20 *Time: 09:17 Interval history: Patient states he slept some last night. He states he did not eat much breakfast but does not eat much anyway. He comments that he wants his legs to get better before he goes home. He currently transfers without standing. He is voiding QS. He denies chest pain and shortness of breath. Exam Vital signs and Labs for Last 24 Hours: Temp Pulse Resp BP Pulse Ox 98.2 F 84 18 144/63 H 97 10/28/20 07:47 10/28/20 07:47 10/28/20 07:47 10/28/20 07:47 10/28/20 07:47 Laboratory Results - last 24 hr 10/27/20 12:30: WBC 9.8, RBC 4.14 L, Hgb 11.3 L, Hct 34.7 L, MCV 83.9, MCH 27.3, MCHC 32.5, RDW 15.3, Plt Count 258, MPV 8.4, Neut % (Auto) 66.5, Lymph % (Auto) 22.2, [place] % (Auto) 6.7, Eos % (Auto) 3.8, Baso % (Auto) 0.8, Neut # (Auto) 6.5, Lymph # (Auto) 2.2, [place] # (Auto) 0.7, Eos # (Auto) 0.4, Baso # (Auto) 0.1 10/27/20 12:30: Total Creatine Kinase 122 D, CK-MB (CK-2) 2.0 D, CK-MB (CK-2) Rel Index 1.6, Troponin I < 0.01, Amylase 44, Lipase 118 10/27/20 12:30: Sodium 138, Potassium 4.3, Chloride 107, Carbon Dioxide 25, Anion Gap 10.3, BUN 25 H, Creatinine 0.80, Estimated Creat Clear 118, Estimated GFR 97, Est GFR ( Amer) 117, Glucose 143 H, Calcium 9.5, Total Bilirubin 0.5, AST 26, ALT 22, Alkaline Phosphatase 96, Total Protein 7.1, Albumin 3.9, Globulin 3.2, Albumin/Globulin Ratio 1.2 02/14/21 20:16: Vancomycin Trough 16.3 H I & O for Last 24 hours: Intake & Output 10/25/20 10/26/20 10/27/20 10/28/20 11:59 11:59 11:59 11:59 Intake Total 1370 / 1370 2170 / 2170 1340 / 1340 Output Total 425 / 425 250 / 250 400 / 400 Balance 945 / 945 1920 / 1920 940 / 940 Weight 251 lb 8 oz 252 lb 8 oz 253 lb 1.451 oz Microbiology Reports for the Last 24 Hours: Microbiology 10/25/20 20:00 Blood Blood Culture - Preliminary NO GROWTH AFTER 48 HOURS 10/25/20 20:00 Blood Blood Culture - Preliminary NO GROWTH AFTER 48 HOURS - Constitutional no acute distress Comments: Appears comfortable sitting in the chair at bedside - *Routine Respiratory Exam Present: CTA bilaterally (Anteriorly and posteriorly) - *Routine Cardiovascular Exam Present: RRR - *Routine Abdominal Exam Present: soft, normoactive bowel sounds, tenderness, obese - *Routine Extremities Exam Present: edema. Absent: calf tenderness Comments: Bilateral leg edema with scattered scabs and erythema to above mid lower leg. 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 insulin use: with senior care use Diabetes mellitus complication status: with other specified complication Qualified Code(s): E11.69 - Type 2 diabetes mellitus with other specified complication; Z79.4 - snf (current) use of insulin Category: Medical Code(s): E11.9 - Type 2 diabetes mellitus without complications (4) Lumbar spinal stenosis Status: Acute Qualifiers: Neurogenic claudication status: unspecified Qualified Code(s): M48.061 - Spinal stenosis, lumbar region without neurogenic claudication Category: Medical Code(s): M48.061 - Spinal stenosis, lumbar region without neurogenic claudication (5) Lymphedema of both lower extremities Status: Acute Category: Medical Code(s): I89.0 - Lymphedema, not elsewhere classified (6) PVD (peripheral vascular disease) Status: Acute Category: Medical Code(s): I73.9 - Peripheral vascular disease, unspecified (7
--- NOTE | 2020-10-28 10:17 | HMH.PTEV ---
Physical Therapy Evaluation Rehab PT IP Evaluation Start: 10/27/20 11:05 Freq: ONCE Status: Active Protocol: Document 10/28/20 09:25 PHORNE (Rec: 10/28/20 10:17 PHORNE [id number]) Subjective/History History History 65 yowm adm to [facility] with LE cellulitis and generalized weakness. He lives alone at home with w/c for primary mobility and has suffered multiple falls at home over the past 2 wks. Subjective Subjective He c/o feeling very weak overall, but no c/o pain. Rehab PT IP Eval Objective Appearance Patient Behavior Appropriate Patient Orientation Person,Place,Time Difficulty following instructions none Speech Pattern Clear Ambulation Patient Able to Ambulate No Balance Ability to Arise Able, uses arms to help Sitting Balance Leans or slides in chair Standing Balance Unsteady Dynamic Sitting Balance Ability Fair Dynamic Standing Balance Ability Poor Transfers Bed Transfer Ability Maximum x 1 (75% assist) Chair Transfer Ability Maximum x 2 (75% assist) Sit to Stand Bed Transfer Ability Maximum x 1 (75% assist) Sit to Stand Chair Transfer Ability Maximum x 2 (75% assist) ROM All Extremities PT ROM Status WFL MMT All Extremities PT MMT ABN Abnormal MMT Grade grossly 3/5 throughout Rehab PT IP prob,goals,plan Problems Date of Evaluation: 10/28/20 PT IP Problems Bed Mobility,Transfers,Gait, Balance,Safety Rehab Potential Rehab Potential Fair Plan PT Intervention Plan Bed Mobility,Transfers,Gait, Balance,Safety,Therapeutic Exercise PT Plan Frequency BID Duration LOS Discharge Goals Bed Transfer Ability Moderate x 2 (50% assist) Sit to Stand Chair Transfer Ability Maximum x 1 (75% assist) Discharge Plan PT Discharge Plan Pt is most appropriate for rehab placement and would be very unsafe if he returned home due to lack of strength, mobility, transfer ability, and ability to perform ADLs. This was discussed with the patient at length. G -code Required No Eval Complexity Eval Charge Codes 18109 - High Complexity
--- NOTE | 2020-10-28 11:03 | HMH.PHACONS ---
- Pharmacy Consult Date: 10/28/20 Time: 11:03 Referring provider: DR. HINDS Reason for Consult:: VANCOMYCIN TROUGH LEVEL Allergies and ADEs:: Allergies Allergy/AdvReac Type Severity Reaction Status Date / Time acetaminophen [From [facility]] Allergy Unknown NA-NAUSEA/V Verified 04/22/19 20:53 OMITING hydrocodone [From [facility]] Allergy Unknown NA-NAUSEA/V Verified 04/22/19 20:53 OMITING tramadol AdvReac Unknown Verified 10/18/20 15:39 allergy reaction Home Medications:: Home Medications Medication Instructions Recorded Confirmed Type Aspirin [Aspirin 81mg EC Tab] 81 mg PO DAILY 04/22/19 10/26/20 History Atorvastatin Calcium [Lipitor 40mg 40 mg PO HS 04/22/19 10/26/20 History Tab] Benazepril HCl 40 mg PO DAILY 04/22/19 10/26/20 History Metformin HCl [Metformin 1000mg 1,000 mg PO BID 04/22/19 10/26/20 History Tablets] lamoTRIgine [Lamotrigine] 200 mg PO BID 04/22/19 10/26/20 History Baclofen 20 mg PO TID 03/27/20 10/26/20 History diazePAM [diazePAM 5mg Tablet] 5 mg PO BIDP PRN 03/27/20 10/25/20 History glipiZIDE [Glipizide] 5 mg PO BID 03/27/20 10/26/20 History Amlodipine Besylate [Amlodipine 10 mg PO DAILY 10/19/20 10/26/20 History 10mg Tab] Metoprolol Succinate [Metoprolol 25 mg PO DAILY 10/19/20 10/26/20 History Succinate 25mg Tablet*] Triamcinolone Acetonide 0 gm TOPICAL BIDP PRN 10/19/20 10/25/20 History ondansetron HCL [Ondansetron 4mg 4 mg PO TIDP PRN 10/19/20 10/26/20 History tab*] Cefdinir [Omnicef 300mg Capsule] 300 mg PO BID 10/25/20 10/26/20 History Height: 1.8 m Weight: 114.8 kg Laboratory Results:: Laboratory Results - last 24 hr 10/27/20 12:30: WBC 9.8, RBC 4.14 L, Hgb 11.3 L, Hct 34.7 L, MCV 83.9, MCH 27.3, MCHC 32.5, RDW 15.3, Plt Count 258, MPV 8.4, Neut % (Auto) 66.5, Lymph % (Auto) 22.2, [place] % (Auto) 6.7, Eos % (Auto) 3.8, Baso % (Auto) 0.8, Neut # (Auto) 6.5, Lymph # (Auto) 2.2, [place] # (Auto) 0.7, Eos # (Auto) 0.4, Baso # (Auto) 0.1 10/27/20 12:30: Total Creatine Kinase 122 D, CK-MB (CK-2) 2.0 D, CK-MB (CK-2) Rel Index 1.6, Troponin I < 0.01, Amylase 44, Lipase 118 10/27/20 12:30: Sodium 138, Potassium 4.3, Chloride 107, Carbon Dioxide 25, Anion Gap 10.3, BUN 25 H, Creatinine 0.80, Estimated Creat Clear 118, Estimated GFR 97, Est GFR ( Amer) 117, Glucose 143 H, Calcium 9.5, Total Bilirubin 0.5, AST 26, ALT 22, Alkaline Phosphatase 96, Total Protein 7.1, Albumin 3.9, Globulin 3.2, Albumin/Globulin Ratio 1.2 10/27/20 20:16: Vancomycin Trough 16.3 H Medical History: Reports:: Arrhythmia, Atrial Fibrillation, Diabetes Mellitus Type 2, Hyperlipidemia, Hypertension, Seizures Denies:: Cancer, Diabetes Mellitus Type 1, MRSA Assessment and Plan (1) Bilateral lower leg cellulitis Status: Acute Category: Medical Code(s): L03.116 - Cellulitis of left lower limb; L03.115 - Cellulitis of right lower limb (2) Debility Status: Acute Category: Medical Code(s): R53.81 - Other malaise (3) Diabetes mellitus Status: Acute Qualifiers: Diabetes mellitus type: type 2 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 insulin use: with senior care use Diabetes mellitus complication status: with other specified complication Qualified Code(s): E11.69 - Type 2 diabetes mellitus with other specified complication; Z79.4 - prison (current) use of insulin Category: Medical Code(s): E11.9 - Type 2 diabetes mellitus without complications (4) Lumbar spinal stenosis Status: Acute Qualifiers: Neurogenic claudication status: unspecified Qualified Code(s): M48.061 - Spinal stenosis, lumbar region without neurogenic claudication Category: Medical Code(s): M48.061 - Spinal stenosis, lumbar region without neurogenic claudication (5) Lymphedema of both lower extremities Status: Acute Category: Medical Code(s): I89.0 - Lymphedema, not elsewhere classified (6) PVD (peripheral vascular disease) Status: Acute Category: Medical Code(s):
[2020-10-28 11:15] VITALS: BMI 35.4
--- NOTE | 2020-10-28 14:32 | SW/DCPLANNER ---
Addendum entered by Shagufta Lima 11/01/20 14:16: CALLED [facility] AND ASKED FOR A RESUMPTION OF SERVICES AND FAXED UPDATED INFORMATION TO THEM TO START SERVICES AGAIN... THEY ARE GOING TO MAKE CONTACT WITH PATIENT THIS AFTERNOON. Addendum entered by Shagufta Lima 10/31/20 14:31: DID GET AHOLD OF PATIENT VIA TELEPHONE AND HE STATED HE WOULD GO TO THE [facility] IF AUTH IS STILL GOOD. CARMEN IS GOING TO CALL THE INSURANCE COMPANY THIS AFTERNOON.... Addendum entered by Shagufta Lima 10/31/20 14:08: PATIENT WENT HOME AND SISTER CAME AND GOT HIM... YRN MORIN HAS MADE SEVERAL ATTEMPTS TO CALL HIS HOME TO SEE IF HE WOULD LIKE TO COME TODAY BEFORE THEY CANCEL THE AUTHORIZATION ... NO ONCE CAN GET AN ANSWER AT HIS HOME AND HE DOES NOT HAVE VOICE MAIL TO LEAVE A MESSAGE... Addendum entered by Shagufta Lima 10/30/20 15:26: RECEIVED A CALL THAT PATIENTS INSURANCE GAVE APPROVAL FOR PATIENT TO RECEIVE SKILLED REHAB AT [facility] IN [place].. PATIENT HAS DECLINED TO GO AGAINST MD'S RECOMMENDATIONS.. HE IS GOING HOME AND WILL CONTINUE WITH HOME HEALTH WHOM HE RECEIVES WITH [facility].. EVERY ATTEMPT WAS MADE TO ENCOURAGE HIM TO GO FOR ALEAST A COUPLE OF WEEKS AND PATIENT STILL REFUSED. HE STATED HE HAS SOMEONE TO COME AND GET HIM AND MD IS DISCHARGING HIM THIS AFTERNOON... WILL FOLLOW UP IN THE AM WITH [facility] TO RESUME SERVICES... Original Note: RECEIVED REFERRAL FOR THIS PATIENT FOR PLACEMENT: I HAVE HAD MULTIPLE CONVERSATIONS WITH THIS PATIENT ABOUT GOING SOMEWHERE FOR REHAB SERVICES... PATIENT LIVES ALONE AND DOES NOT DRIVE, HE STATED HE HAS A LADY CLOSE BY AND SAID SHE CAN CHECK ON HIM, HE ALSO RECEIVES HOME HEALTH WITH [facility] BUT OUR PT, LUIS PAUL STATED HE IS NOT SAFE TO RETURN HOME AT THIS TIME... I DID FIND A COUPLE OF FACILITIES IN [facility], [facility] AND [facility] BUT [facility] IS NOT ACCEPTING ANY PATIENTS AT THIS TIME.. HE IS GOING TO HAVE $0 OUT OF POCKET FOR THE FIRST 20 DAYS AND $184 DAY 21 TO 100.. HE IS HESITANT TO GOING AND HAS SAID HE WANTS TO GO HOME.. HE IS NOT SAFE BUT I CAN NOT CONVINCE HIM THAT ITS IN HIS BEST INTEREST TO GO FOR A COUPLE OF WEEKS.. I HAVE ASKED YRN MORIN TO GET AN AUTHORIZATION AND TRY IN THE AM TO CONVINCE HIM TO GO... HE IS CLOSE TO BEING READY FOR DISCHARGE...
[2020-10-28 15:55] VITALS: BP 127/53; PULSE 78; TEMP 36.6; O2SAT 98
[2020-10-28 19:27] VITALS: BP 125/68; PULSE 80; RESP 18; TEMP 37.1; O2SAT 97
--- NOTE | 2020-10-28 20:15 | PC.NURSE ---
No acute changes this shift. Bed alarm on r/t safety. Pt alert and oriented x 4 this shift. VSS. CB in reach. Possible placement for skilled therapy.
[2020-10-29 04:00] VITALS: BP 118/69; PULSE 71; RESP 17; TEMP 36.4; O2SAT 96
[2020-10-29 05:00] VITALS: BMI 34.3
--- NOTE | 2020-10-29 05:20 | PC.NURSE ---
Pt is A&Ox4 and has c/o pain to BLE 2x this shift and medicated per MAR with effectiveness noted. Pt was able to sleep for several hours this shift. Lungs CTA on room air. +1-2 pitting edema to BLE, scattered scabbed areas and redness noted. Pt encouraged to keep BLE elevated on on pillows in bed. ABD is soft, non-tender with active bowel sounds. Pt had a BM, copious amount of large, hard stool. Pt denies any N/V/D. Call light within reach, bed alarm active for safety. Will continue to monitor.
[2020-10-29 07:36] VITALS: BP 108/59; PULSE 85; RESP 17; TEMP 36.7; O2SAT 99
--- NOTE | 2020-10-29 08:24 | HMH.ACPN ---
Internal Medicine - PN: Subj *Date: 10/29/20 *Time: 08:24 Exam Vital signs and Labs for Last 24 Hours: Temp Pulse Resp BP Pulse Ox 98.1 F 85 17 108/59 L 99 10/29/20 07:36 10/29/20 07:36 10/29/20 07:36 10/29/20 07:36 10/29/20 07:36 I & O for Last 24 hours: Intake & Output 10/26/20 10/27/20 10/28/20 10/29/20 23:59 23:59 23:59 23:59 Intake Total 1820 / 1820 1330 / 1580 2180 / 2300 360 / 360 Output Total 150 / 150 400 / 400 200 / 450 250 / 250 Balance 1670 / 1670 930 / 1180 1980 / 1850 110 / 110 Weight 114.078 kg 114.532 kg 115 kg 111.244 kg Assessment and Plan (1) Bilateral lower leg cellulitis Status: Acute Category: Medical Code(s): L03.116 - Cellulitis of left lower limb; L03.115 - Cellulitis of right lower limb (2) Debility Status: Acute Category: Medical Code(s): R53.81 - Other malaise (3) Diabetes mellitus Status: Acute Qualifiers: Diabetes mellitus type: type 2 Diabetes mellitus senior care insulin use: with senior care use Diabetes mellitus complication status: with other specified complication Qualified Code(s): E11.69 - Type 2 diabetes mellitus with other specified complication; Z79.4 - rn long term care (current) use of insulin Category: Medical Code(s): E11.9 - Type 2 diabetes mellitus without complications (4) Lumbar spinal stenosis Status: Acute Qualifiers: Neurogenic claudication status: unspecified Qualified Code(s): M48.061 - Spinal stenosis, lumbar region without neurogenic claudication Category: Medical Code(s): M48.061 - Spinal stenosis, lumbar region without neurogenic claudication (5) Lymphedema of both lower extremities Status: Acute Category: Medical Code(s): I89.0 - Lymphedema, not elsewhere classified (6) PVD (peripheral vascular disease) Status: Acute Category: Medical Code(s): I73.9 - Peripheral vascular disease, unspecified (7) Renal insufficiency Status: Acute Category: Medical Code(s): N28.9 - Disorder of kidney and ureter, unspecified (8) Seizure disorder Status: Acute Category: Medical Code(s): G40.909 - Epilepsy, unspecified, not intractable, without status epilepticus (9) Weakness Status: Acute Category: Medical Code(s): R53.1 - Weakness The patient's infection will respond to the chosen ABx?: Yes Is the patient receiving the right drug, dose, and route?: Yes Could a more targeted ABx be ordered?: No
--- NOTE | 2020-10-29 09:05 | HMH.ACPN2 ---
<Nakia Fuentes - Last Filed: 10/29/20 09:05> Internal Medicine - PN: Subj *Date: 10/29/20 *Time: 09:05 Interval history: Patient states he feels about the same. He continues to experience nausea and is not eating very much. He did stand but only briefly with physical therapy yesterday. He was excited about this. With conversation with me he states he is going to rehab. He denies chest pain and shortness of breath. Exam Vital signs and Labs for Last 24 Hours: Temp Pulse Resp BP Pulse Ox 98.1 F 85 17 108/59 L 99 10/29/20 07:36 10/29/20 07:36 10/29/20 07:36 10/29/20 07:36 10/29/20 07:36 I & O for Last 24 hours: Intake & Output 10/26/20 10/27/20 10/28/20 10/29/20 11:59 11:59 11:59 11:59 Intake Total 1370 / 1370 2170 / 2170 1340 / 1340 1810 / 1810 Output Total 425 / 425 250 / 250 400 / 400 250 / 250 Balance 945 / 945 1920 / 1920 940 / 940 1560 / 1560 Weight 251 lb 8 oz 252 lb 8 oz 253 lb 8.505 oz 245 lb 4 oz - Constitutional no acute distress Comments: Lying in bed and appears comfortable. - *Routine Respiratory Exam Present: CTA bilaterally (Anteriorly and posteriorly) - *Routine Cardiovascular Exam Present: RRR - *Routine Abdominal Exam Present: soft, normoactive bowel sounds. Absent: tenderness - *Routine Extremities Exam Present: edema (Has improved.) Comments: Legs with less erythema. Scabs remain. Also less edema of lower legs bilaterally today. 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: with correction use Diabetes mellitus complication status: with other specified complication Qualified Code(s): E11.69 - Type 2 diabetes mellitus with other specified complication; Z79.4 - intermediate manager (current) use of insulin Category: Medical Code(s): E11.9 - Type 2 diabetes mellitus without complications (4) Lumbar spinal stenosis Status: Acute Qualifiers: Neurogenic claudication status: unspecified Qualified Code(s): M48.061 - Spinal stenosis, lumbar region without neurogenic claudication Category: Medical Code(s): M48.061 - Spinal stenosis, lumbar region without neurogenic claudication (5) Lymphedema of both lower extremities Status: Acute Category: Medical Code(s): I89.0 - Lymphedema, not elsewhere classified (6) PVD (peripheral vascular disease) Status: Acute Category: Medical Code(s): I73.9 - Peripheral vascular disease, unspecified (7) Renal insufficiency Status: Acute Category: Medical Code(s): N28.9 - Disorder of kidney and ureter, unspecified (8) Seizure disorder Status: Acute Category: Medical Code(s): G40.909 - Epilepsy, unspecified, not intractable, without status epilepticus (9) Weakness Status: Acute Category: Medical Code(s): R53.1 - Weakness (10) GERD (gastroesophageal reflux disease) Status: Acute Category: Medical Code(s): K21.9 - Gastro-esophageal reflux disease without esophagitis - Assessment and plan all Dx Assessment and Plan for all problems:: Care management continues to work on disposition. Start Hibiclens scrubs to lower legs and scabbed areas. We will add Pepcid. <Daren Stauffer - Last Filed: 10/29/20 09:42> Internal Medicine - PN: Subj *Date: 10/29/20 *Time: 09:41 Exam Vital signs and Labs for Last 24 Hours: Temp Pulse Resp BP Pulse Ox 98.1 F 85 17 108/59 L 99 10/29/20 07:36 10/29/20 07:36 10/29/20 07:36 10/29/20 07:36 10/29/20 07:36 I & O for Last 24 hours: Intake & Output 10/26/20 10/27/20 10/28/20 10/29/20 23:59 23:59 23:5
[2020-10-29 16:00] VITALS: BP 125/80; PULSE 86; RESP 20; TEMP 36.9; O2SAT 97
[2020-10-29 19:53] VITALS: BP 164/65; PULSE 86; RESP 18; TEMP 37.1; O2SAT 99
[2020-10-29 20:37] LABS: Chloride 106 mmol/L (98-107); Potassium 4.4 mmoL/L (3.5-5.1); Sodium 140 mmol/L (136-145)
[2020-10-29 20:40] LABS: Alanine Aminotransferase 18 U/L (12-78); Albumin Level 4.2 g/dl (3.5-5.0); Albumin/Globulin Ratio 1.2 (1.1-1.8); Alkaline Phosphatase 96 U/L (38-126); Anion Gap 11.4 mEq/L (5-15); Aspartate Amino Transferase 24 U/L (17-59); Bilirubin,Total 0.6 mg/dl (0.2-1.3); Blood Urea Nitrogen 19 mg/dl (9-20); Carbon Dioxide 27 mmol/L (22.0-30.0); Creatinine Clearance Estimated 114 mL/min (50-200); Estimated Glomerular Filt Rate 113 ml/min (>60); GFR (African American) 137 ML/MIN (>60); Globulin 3.6 g/dL (1.3-3.2); Total Protein,Serum 7.8 g/dl (6.3-8.2)
[2020-10-29 20:41] LABS: Calcium 9.8 mg/dl (8.4-10.2); Glucose 135 mg/dl (74-100)
[2020-10-29 21:31] LABS: Vancomycin,Trough 16.8 ug/mL (5.0-10.0)
--- NOTE | 2020-10-29 22:54 | PC.NURSE ---
@[id number] s/w Juan Ramon Torres, on-call pharmacy, and was told it was ok to admin Vancomycin. Of note, he was not notified by Lab.
[2020-10-30] VITALS: BP 121/50; PULSE 69; RESP 18; TEMP 36.4; O2SAT 97
[2020-10-30 04:00] VITALS: BP 150/75; PULSE 87; RESP 18; TEMP 36.3; O2SAT 100
[2020-10-30 05:00] VITALS: BMI 34.2
[2020-10-30 07:38] VITALS: BP 150/66; PULSE 80; RESP 18; TEMP 36.7; O2SAT 99
[2020-10-30 08:00] VITALS: PULSE 80; RESP 18; O2SAT 99
--- NOTE | 2020-10-30 08:37 | HMH.ACPN2 ---
<Nakia Fuentes - Last Filed: 10/30/20 08:37> Internal Medicine - PN: Subj *Date: 10/30/20 *Time: 08:37 Interval history: Patient states he had an okay night last night. He states he ate fair yesterday. He continues to have nausea. He does not vomit. Bowels move twice yesterday. He voids QS. He worked with physical therapy and did stand very briefly yesterday. Patient complaining of right shoulder discomfort. He states he fell in the emergency room off of the stretcher when using the urinal. He states that the shoulder has hurt ever since. He would like an x-ray. Patient now states that he has someone to stay with him 05/04 and wants to go home. We discussed previous rehab stays and was not pleased with them. He feels he can do well with home health physical therapy 2-3 times weekly. Continue to encourage admission to a rehab facility for more intense care. Exam Vital signs and Labs for Last 24 Hours: Temp Pulse Resp BP Pulse Ox 98.0 F 80 18 150/66 H 99 10/30/20 07:38 10/30/20 07:38 10/30/20 07:38 10/30/20 07:38 10/30/20 07:38 Laboratory Results - last 24 hr 10/29/20 20:25: Sodium 140, Potassium 4.4, Chloride 106, Carbon Dioxide 27, Anion Gap 11.4, BUN 19, Creatinine 0.70, Estimated Creat Clear 114, Estimated GFR 113, Est GFR ( Amer) 137, Glucose 135 H, Calcium 9.8, Total Bilirubin 0.6, AST 24, ALT 18, Alkaline Phosphatase 96, Total Protein 7.8, Albumin 4.2, Globulin 3.6 H, Albumin/Globulin Ratio 1.2 10/29/20 20:25: Vancomycin Trough 16.8 H I & O for Last 24 hours: Intake & Output 10/27/20 10/28/20 10/29/20 10/30/20 11:59 11:59 11:59 11:59 Intake Total 2170 / 2170 1340 / 1340 1810 / 1810 500 / 500 Output Total 250 / 250 400 / 400 250 / 250 650 / 650 Balance 1920 / 1920 940 / 940 1560 / 1560 -150 / -150 Weight 252 lb 8 oz 253 lb 8.505 oz 245 lb 4 oz 244 lb 3 oz - Constitutional no acute distress Comments: Is able to sit on the side of the bed without assistance. - *Routine Respiratory Exam Present: CTA bilaterally (Anteriorly and posteriorly) - *Routine Cardiovascular Exam Present: RRR - *Routine Abdominal Exam Present: soft, normoactive bowel sounds. Absent: tenderness, distended - *Routine Extremities Exam Present: edema (Bilateral leg edema with the left greater than the right). Absent: calf tenderness Comments: He can move his legs without difficulty. He does not have range of motion. Right shoulder tender to palpation over anterior aspect. No edema ecchymosis or crepitus. Is able to rotate shoulders. Cannot fully extend either arm. Assessment and Plan (1) Bilateral lower leg cellulitis Status: Acute Category: Medical Code(s): L03.116 - Cellulitis of left lower limb; L03.115 - Cellulitis of right lower limb (2) Debility Status: Acute Category: Medical Code(s): R53.81 - Other malaise (3) Diabetes mellitus Status: Acute Qualifiers: Diabetes mellitus type: type 2 Diabetes mellitus detention insulin use: with detention use Diabetes mellitus complication status: with other specified complication Qualified Code(s): E11.69 - Type 2 diabetes mellitus with other specified complication; Z79.4 - termination clerk (current) use of insulin Category: Medical Code(s): E11.9 - Type 2 diabetes mellitus without complications (4) Lumbar spinal stenosis Status: Acute Qualifiers: Neurogenic claudication status: unspecified Qualified Code(s): M48.061 - Spinal stenosis, lumbar region without neurogenic claudication Category: Medical Code(s): M48.061 - Spinal stenosis, lumbar region without neurogenic claudication (5) Lymphedema of both lower extremities Status: Acute Category: Medical Code(s): I89.0 - Lymphedema, not elsewhere classified (6) PVD (peripheral vascular disease) Status: Acute Category: Medical Code(s): I73.9 - Peripheral vascular disease, unspecified (7) Renal insufficiency Status: Acute Category: Med
--- NOTE | 2020-10-30 08:46 | XR_ITS ---
PROCEDURE: XR SHOULDER RT MIN 2V CLINICAL INDICATION: fall ; painful COMPARISON: CR XR CHEST PORTABLE from 10/25/2020 FINDINGS: The lateral clavicle peers intact. There is minor degenerate change of the AC joint with mild spurring inferiorly. There is a slightly high-riding humeral head suggesting possible rotator cuff pathology. There is no significant subacromial stenosis. There are no soft tissue calcifications. IMPRESSION: Mild degenerate change of the AC joint and slightly high-riding humeral head as noted Dictated by: Dr. Julio Fonseca MD 10/30/2020 09:20 Dr. Julio Fonseca MD in [place] 10/30/2020 09:20
--- NOTE | 2020-10-30 09:22 | HMH.PHACONS ---
- Pharmacy Consult Date: 10/30/20 Time: 09:22 Referring provider: DR. HINDS Reason for Consult:: VANCOMYCIN TROUGH LEVEL Allergies and ADEs:: Allergies Allergy/AdvReac Type Severity Reaction Status Date / Time acetaminophen [From LORTAB] Allergy Unknown NA-NAUSEA/V Verified 04/22/19 20:53 OMITING hydrocodone [From LORTAB] Allergy Unknown NA-NAUSEA/V Verified 04/22/19 20:53 OMITING tramadol AdvReac Unknown Verified 10/18/20 15:39 allergy reaction Home Medications:: Home Medications Medication Instructions Recorded Confirmed Type Aspirin [Aspirin 81mg EC Tab] 81 mg PO DAILY 04/22/19 10/26/20 History Atorvastatin Calcium [Lipitor 40mg 40 mg PO HS 04/22/19 10/26/20 History Tab] Benazepril HCl 40 mg PO DAILY 04/22/19 10/26/20 History Metformin HCl [Metformin 1000mg 1,000 mg PO BID 04/22/19 10/26/20 History Tablets] lamoTRIgine [Lamotrigine] 200 mg PO BID 04/22/19 10/26/20 History Baclofen 20 mg PO TID 03/27/20 10/26/20 History diazePAM [diazePAM 5mg Tablet] 5 mg PO BIDP PRN 03/27/20 10/25/20 History glipiZIDE [Glipizide] 5 mg PO BID 03/27/20 10/26/20 History Amlodipine Besylate [Amlodipine 10 mg PO DAILY 10/19/20 10/26/20 History 10mg Tab] Metoprolol Succinate [Metoprolol 25 mg PO DAILY 10/19/20 10/26/20 History Succinate 25mg Tablet*] Triamcinolone Acetonide 0 gm TOPICAL BIDP PRN 10/19/20 10/25/20 History ondansetron HCL [Ondansetron 4mg 4 mg PO TIDP PRN 10/19/20 10/26/20 History tab*] Cefdinir [Omnicef 300mg Capsule] 300 mg PO BID 10/25/20 10/26/20 History Height: 1.8 m Weight: 110.762 kg Laboratory Results:: Laboratory Results - last 24 hr 10/29/20 20:25: Sodium 140, Potassium 4.4, Chloride 106, Carbon Dioxide 27, Anion Gap 11.4, BUN 19, Creatinine 0.70, Estimated Creat Clear 114, Estimated GFR 113, Est GFR ( Amer) 137, Glucose 135 H, Calcium 9.8, Total Bilirubin 0.6, AST 24, ALT 18, Alkaline Phosphatase 96, Total Protein 7.8, Albumin 4.2, Globulin 3.6 H, Albumin/Globulin Ratio 1.2 10/29/20 20:25: Vancomycin Trough 16.8 H Medical History: Reports:: Arrhythmia, Atrial Fibrillation, Diabetes Mellitus Type 2, Hyperlipidemia, Hypertension, Seizures Denies:: Cancer, Diabetes Mellitus Type 1, MRSA Assessment and Plan (1) Bilateral lower leg cellulitis Status: Acute Category: Medical Code(s): L03.116 - Cellulitis of left lower limb; L03.115 - Cellulitis of right lower limb (2) Debility Status: Acute Category: Medical Code(s): R53.81 - Other malaise (3) Diabetes mellitus Status: Acute Qualifiers: Diabetes mellitus type: type 2 Diabetes mellitus manager long term care insulin use: with half-way use Diabetes mellitus complication status: with other specified complication Qualified Code(s): E11.69 - Type 2 diabetes mellitus with other specified complication; 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 Category: Medical Code(s): E11.9 - Type 2 diabetes mellitus without complications (4) Lumbar spinal stenosis Status: Acute Qualifiers: Neurogenic claudication status: unspecified Qualified Code(s): M48.061 - Spinal stenosis, lumbar region without neurogenic claudication Category: Medical Code(s): M48.061 - Spinal stenosis, lumbar region without neurogenic claudication (5) Lymphedema of both lower extremities Status: Acute Category: Medical Code(s): I89.0 - Lymphedema, not elsewhere classified (6) PVD (peripheral vascular disease) Status: Acute Category: Medical Code(s): I73.9 - Peripheral vascular disease, unspecified (7) Renal insufficiency Status: Acute Category: Medical Code(s): N28.9 - Disorder of kidney and ureter, unspecified (8) Seizure disorder Status: Acute Category: Medical Code(s): G40.909 - Epilepsy, unspecified, not intractable, without status epilepticus (9) Weakness Status: Acute Category: Medical Code(s): R53.1 - Weakness (10) GERD (gastroesophageal reflux disea
--- NOTE | 2020-10-30 10:58 | DIET.NUTRFU ---
Pt stated he has not been eating at all, and they get on me about it referring to nursing. PO intakes are 75%, pt did refuse 1 meal on Wednesday and breakfast this am. He has stated he has nausea t/o stay and told me he has had nausea with associated low intakes regularly for months, states that he has lost 50 something pounds. Records confirm a loss of 22# past 7 months. He denies any abdominal symptoms other than nausea and unable to identify upset with any certain foods. He has a very poor understanding of DM and appropriate diet, nutrition in general. In depth nutrition education/counseling provided for both DM and adequate intakes/nausea management, pt with overall poor memory and understanding. He drinks boost and sweet tea at home, is unable to tell me what he eats other than frozen food and deli meat, denies assistance with cooking, states a neighbor helps with shopping. I have concerns about pt's limited ability to manage nutrition, expressed this to pt and encouraged rehab care. Pt is pleasant and enjoys speaking about nutrition despite poor understanding, have encouraged him to f/u with me through OP counseling and/or reach out post dc, written education provided as well.
--- NOTE | 2020-10-30 15:04 | CARE MANAGER ---
Spoke with patient regarding having a bed authorized by the insurance at [facility] for rehab. Explained to patient that for his safety, rehab would be his best option. He states he is going home with his home health and has someone to stay with him. He feels like the best place for him to be is at home and will not be going to rehab. Reiterated to patient that the doctor and nurses believe the safest option would be at a rehab facility. Patient continues to be adamant that he is going home. JESSEE Hunter, BSN
[2020-10-30 15:31] VITALS: BP 135/75; PULSE 85; RESP 18; TEMP 36.6; O2SAT 97
--- NOTE | 2020-10-30 18:42 | PC.NURSE ---
Addendum entered by Mayo Franco RN 10/30/20 18:50: vehicle. Home meds given to pt and d/c instructions given. Also,told pt if he was interested tomorrow, he could still speak with [facility] to see if he was able to come. Original Note: Pt was back and forth on wanting to go to rehab for 10 days or go home, he initially refused to go to [facility], which did accept him and he needed to go to. Dr. Stauffer explained that he couldn't predict how long his stay there would be. Pt then refused and he was ordered to be d/cd. Later, pt stated he would go to rehab for 10 days but there wasn't an order for that. A Clarence aware and Dr. Stauffer made aware as well. This nurse did attempt to have [facility] take pt home and they refused since there was no one to transfer care to. Pt stated he was unable to find ride, so this nurse called Dr. Cobb control specialist and then he had ac call back, in he mean time, Spoke with Jase, pts friend that stated someone would be here to get him and he could stay with him or someone stay with him. Yaa pts cousin called back and stated that Jase was lying and he was drunk and likely could be here to get pt. Pt was adimet to leave and stated just to take him outside or to the lobby, explained why this couldnt be done. [facility]
--- NOTE | 2020-10-31 12:01 | HMH.DCSUM ---
General - General Admission date:: 10/26/20 Discharge date: 10/30/20 HPI HPI: Mr. Pool is a 65 year old patient of Dr. John Paul Orellana who is being readmitted to [facility] due to frequent falls and leg cellulitis. Patient was hospitalized from 10/18/20 to 10/21/20 for the very same issues that he presents for today. He has chronic back and leg pain and is unable to walk due to lumbar spinal stenosis which he has previously had surgical treatment. He has skin wounds on both legs with surrounding cellulitis. In his previous admission he adamantly refused nursing placement and wanted to be discharged home with home health care. Since being home, he has fallen multiple times and has called neighbors and family members to pick him up. Hospital Course Hospital Course: The patient had a chest x-ray showing nothing acute and a head CT showing no acute intracranial findings. He also had a pelvic x-ray due to his falls which showed no fracture but some arthritic changes. The patient was admitted and Dr. Stauffer discussed the need for higher level of care than home health. Patient did not agree to placement and he was continued on treatment for his leg cellulitis and pain. Physical therapy evaluated the patient and felt he was appropriate for rehab placement and would be very unsafe if he returned home due to his lack of strength, mobility, transfer ability, and his ability to perform ADLs. Patient's blood culture showed no growth. Once again placement was discussed with the patient, but he refused. He did experience some nausea and was unable to eat much of his food. He stood only briefly with physical therapy, but did make some improvement. He complained of some right shoulder discomfort. He stated he fell in the emergency room off of the stretcher when using the urinal and his shoulder had hurt ever since. He requested a shoulder x-ray which showed degenerative changes but no fracture. The patient stated he had someone to stay with him 05/04 at home and therefore he wanted to go home rather than be placed for rehab. He felt he could do well with home health physical therapy 2-3 times a week. We still encouraged admission to a rehab facility for more intensive care and care management arranged a rehab bed for the patient at [facility], however he refused to accept it. He was adamant he was going home and wanted to resume home health physical therapy. He was discharged home AGAINST MEDICAL ADVICE on 10/30/2020. The rehab bed will still be available if the patient needs it after discharge. Objective Vital signs: Temp Pulse Resp BP Pulse Ox 97.8 F 85 18 135/75 97 10/30/20 15:31 10/30/20 15:31 10/30/20 15:31 10/30/20 15:31 10/30/20 15:31 Narrative: - Constitutional no acute distress - *Routine HEENT Exam Head: Present: normocephalic Eye: Present: EOMI ENT: Present: mucous membranes moist - *Routine Neck Exam Present: supple. Absent: lymphadenopathy - *Routine Respiratory Exam Present: CTA bilaterally - *Routine Cardiovascular Exam Present: RRR - *Routine Abdominal Exam Present: soft, normoactive bowel sounds. Absent: tenderness - *Routine Extremities Exam Present: edema (1+ in both lower legs). Absent: cyanosis, clubbing - *Routine Skin Exam Present: warm, rash Comments: multiple excoriations and wounds on lower legs with eschars in place, no drainage, confluent dull skin erythema around the lower third of each leg and around some of the wounds - *Routine Neurological Exam Present: alert, oriented X3, motor deficit decreased muscle strength in both legs, 2/5 in both today DS: Diagnosis - Discharge Diagnosis (1) Bilateral lower leg cellulitis Status: Acute (2) Debility Status: Acute (3) Diabetes mellitus Status: Acute (4) Lumbar spinal stenosis Status: Acute (5) Lymphedema of both lower extremities Status: Acute (6) PVD (peripheral vascular disease) S
== END 2020-10-30 18:00 | disposition home health service (06) ==
LOC: ER 21:19 → 2ND 22:02
PROVIDERS: Admitting Provider Family Medicine; Emergency Provider Emergency Medicine; PCP Family Medicine; Visit Provider Family Medicine
DX: L03.115 Cellulitis of right lower limb (principal); L03.116 Cellulitis of left lower limb; M48.061 Spinal stenosis, lumbar region without neurogenic claudication; R29.6 Repeated falls; M48.02 Spinal stenosis, cervical region; Z99.3 Dependence on wheelchair; Z91.81 History of falling; I48.91 Unspecified atrial fibrillation; E11.9 Type 2 diabetes mellitus without complications; Z79.84 Long term (current) use of oral hypoglycemic drugs; Z79.82 Long term (current) use of aspirin; I10 Essential (primary) hypertension; G40.909 Epilepsy, unspecified, not intractable, without status epilepticus; Z79.899 Other long term (current) drug therapy; Z87.891 Personal history of nicotine dependence
CPT/HCPCS: 36415; 70450; 71045; 72170; 73030; 80048; 80053; 80202; 81001; 82150; 82550; 82553; 83605; 83690; 83735; 84100; 84145; 84484; 85025; 87040; 93005; 96365; 97110; 97163; 97530; 99285; G0378; J3370; U0003

== ENCOUNTER → 2021-08-04 10:21 | Outpatient (CLI) | payer MEDICARE, SELFPAY ==
[2021-08-04 14:23] LABS: Basophils # 0.1 K/mm3 (0-0.2); Basophils % 1.8 % (0.1-2.0); Eosinophils # 0.3 K/mm3 (0.0-0.4); Eosinophils % 4.2 % (0.1-12.0); Hematocrit 30.7 % (42.0-52.0); Lymphocytes # 1.9 K/mm3 (0.7-4.5); Lymphocytes % 23.4 % (10-50); Mean Corpuscular HGB Conc 32.7 g/dL (31.8-35.4); Mean Corpuscular Hemoglobin 26.2 pg (27.0-31.2); Mean Corpuscular Volume 80.2 fl (80-94); Mean Platelet Volume 9.7 fl (7.4-10.4); Monocytes # 0.7 K/mm3 (0.1-1.0); Monocytes % 8.5 % (1.7-9.3); Neutrophils # 5.1 K/mm3 (1.8-7.8); Neutrophils % 62.2 % (37.0-80.0); Platelet Count 455 K/mm3 (142-424); Red Blood Count 3.83 M/mm3 (4.60-6.20); Red Cell Distribution Width 17.4 % (11.5-17.5); White Blood Count 8.1 K/mm3 (4.8-10.8)
== END ==
PROVIDERS: Visit Provider Nurse Practitioner Family
DX: D64.9 Anemia, unspecified (principal); E11.9 Type 2 diabetes mellitus without complications; Z79.84 Long term (current) use of oral hypoglycemic drugs
CPT/HCPCS: 85025

== ENCOUNTER 2023-04-20 19:13 | Observation (INO) | payer MEDICARE, SELFPAY ==
[2023-04-20 19:13] VITALS: BP 159/93; PULSE 131; RESP 19; TEMP 36.8; O2SAT 97; BMI 35.2
--- NOTE | 2023-04-20 19:35 | ECG_ITS ---
APPROVED REPORT Exam: Resting ECG HR:131 bpm ECG Measurements Heart Rate 131 AXES IL 131 P 65 QRSd 114 QRS 69 QT 306 T 6 QTc 383 Conclusion SINUS TACHYCARDIA ABNORMAL ECG UNCONFIRMED REPORT Electronically signed by : Gustavo Leggett MD 04/20/2023 20:41:44
[2023-04-20 19:40] LABS: Basophils # 0.1 K/mm3 (0-0.2); Basophils % 0.4 % (0.1-2.0); Eosinophils # 0.1 K/mm3 (0.0-0.4); Eosinophils % 1.1 % (0.1-12.0); Hematocrit 38.9 % (42.0-52.0); Hemoglobin 12.3 g/dL (14.1-18.0); Lymphocytes # 1.1 K/mm3 (0.7-4.5); Mean Corpuscular HGB Conc 31.5 g/dL (31.8-35.4); Mean Corpuscular Volume 82.3 fl (80-94); Mean Platelet Volume 8.5 fl (7.4-10.4); Monocytes # 0.9 K/mm3 (0.1-1.0); Monocytes % 6.7 % (1.7-9.3); Neutrophils % 83.8 % (37.0-80.0); Platelet Count 286 K/mm3 (142-424); Red Blood Count 4.72 M/mm3 (4.60-6.20); Red Cell Distribution Width 15.9 % (11.5-17.5); White Blood Count 13.1 K/mm3 (4.8-10.8)
[2023-04-20 19:48] LABS: Lactic Acid 1.8 mmol/L (0.7-2.1)
[2023-04-20 19:49] LABS: Alanine Aminotransferase 28 U/L (12-78); Albumin Level 4.1 g/dl (3.5-5.0); Albumin/Globulin Ratio 1.2 (1.1-1.8); Alkaline Phosphatase 146 U/L (38-126); Anion Gap 16.7 mEq/L (5-15); Aspartate Amino Transferase 26 U/L (17-59); Bilirubin,Total 0.3 mg/dl (0.2-1.3); Blood Urea Nitrogen 25 mg/dl (9-20); Carbon Dioxide 22 mmol/L (22.0-30.0); Chloride 105 mmol/L (98-107); Creatinine Clearance Estimated 116 mL/min (50-200); Estimated Glomerular Filt Rate 96 ml/min (>60); GFR (African American) 116 ML/MIN (>60); Globulin 3.5 g/dL (1.3-3.2); Glucose 297 mg/dl (74-100); Potassium 4.7 mmoL/L (3.5-5.1); Sodium 139 mmol/L (136-145); Total Protein,Serum 7.6 g/dl (6.3-8.2)
[2023-04-20 19:51] LABS: Activated Partial Thrombo Time 25.7 seconds (22.8-30.6); INR 0.98 (0.9-1.1); Prothrombin Time 10.6 seconds (10.1-12.5)
[2023-04-20 20:00] LABS: NT Pro Brain Natriuretic Pep. 824 pg/mL (0-125); Troponin I < 0.01 ng/ml (0.00-0.034)
--- NOTE | 2023-04-20 20:02 | PC.NURSE ---
Spoke to Zafar with Sj for abx dosing
--- NOTE | 2023-04-20 20:11 | HMH.EDGENADL ---
Discharge Plan Disposition Patient Disposition: Admitted As Inpatient Clinical Impressions Clinical Impression: Cellulitis and abscess of left leg, SIRS (systemic inflammatory response syndrome) Discharge ED Provider: Mark Bennett Adult HPI General Chief complaint: Weakness Stated complaint: Sent in by Home Health for weakness Time Seen by Provider: 04/20/23 19:41 Mode of Arrival: EMS Source of Information: Patient and EMS Limitations: Physical Limitations Description of Symptoms (Recalled from ER Triage Doc. by RN): 68 M presents from home via EMS after his home health nurse called EMS for left lower extremity cellulitis, fever, and increased weakness. Patient states he signed himself out of [facility] in [place] recently for bad care. Patient states he was also in [place] in [place] before he was sent home with home health. Patient presents covered in urine, smells of stale urine, and reports pain/burning to his LLE. GCS 15, very pleasant on arrival. History of Present Illness HPI narrative: 68-year-old male history of type 2 diabetes, severe obesity, seizure disorder, status post distant right AKA for gangrene presents to the ED with fever leg pain. Patient reports that he has had worsening left lower extremity swelling, redness, pain for several days. Home health nurse saw him today, noted a fever to 101 and recommended they come to the ED. He denies any urinary symptoms. Reports worsening shortness of breath from baseline. Related Data Home Medications Medication Instructions Recorded Confirmed aspirin 81 mg tablet,delayed 81 mg PO DAILY Heart Disease 04/20/23 04/20/23 release atorvastatin 40 mg tablet 40 mg PO DAILY High Cholesterol 04/20/23 04/20/23 baclofen 20 mg tablet 20 mg PO DAILYP PRN Muscle Spasms 04/20/23 04/20/23 buspirone 5 mg tablet 5 mg PO TID Psychiatric 04/20/23 04/20/23 docusate sodium 250 mg capsule 250 mg PO BID Constipation 04/20/23 04/20/23 finasteride 5 mg tablet 5 mg PO DAILY High Blood Pressure 04/20/23 04/20/23 furosemide 40 mg tablet 40 mg PO DAILY Fluid 04/20/23 04/20/23 glipizide 5 mg tablet 5 mg PO BID Diabetes 04/20/23 04/20/23 lamotrigine 100 mg tablet 100 mg PO BID Seizure 04/20/23 04/20/23 lamotrigine 150 mg tablet 150 mg PO HS Seizure 04/20/23 04/20/23 losartan 50 mg tablet 50 mg PO DAILY High Blood Pressure 04/20/23 04/20/23 metformin 1,000 mg tablet 1,000 mg PO BID Diabetes 04/20/23 04/20/23 Allergies Allergy/AdvReac Type Severity Reaction Status Date / Time hydrocodone [From LORTAB] Allergy Unknown NA-NAUSEA/V Verified 04/22/19 20:53 OMITING tramadol AdvReac Unknown Verified 10/18/20 15:39 [facility] Disclaimer: The information contained in this section may have been updated after the patient was seen, as this information can be updated by other users. Social History Smoking Status: Former smoker alcohol intake: never substance use type: marijuana current occupational status: retired Travel in the last 8 weeks: None household members: family caffeine: No ROS Obtained: Yes All systems reviewed & no additional complaints except as documented Physical Exam General General appearance: alert and in no apparent distress Head Head exam: atraumatic and normocephalic Eye Eye exam: Present normal appearance, PERRL and EOMI ENT ENT exam: Present mucous membranes dry and normal external ear exam Neck Neck exam: Present normal inspection and full ROM Chest Chest inspection: Present normal inspection and symmetric chest wall rise; Absent tenderness Respiratory Respiratory exam: Present normal lung sounds bilaterally; Absent respiratory distress Cardiovascular Cardiovascular exam: Present regular rate and normal rhythm Abdominal Exam Abdominal exam: Present soft and distention; Absent tenderness or guarding Extremities Exam Extremities exam: Present edema,
[2023-04-20 20:48] LABS: Acetone, Serum (Rapid) None Detected (None Detect)
[2023-04-20 20:55] LABS: Microscopic, Urine URINE MICROSCOPIC (MICROSCOPIC)
--- NOTE | 2023-04-20 20:56 | PC.NURSE ---
SPEAKING WITH HOSPITALIST
[2023-04-20 20:58] LABS: Appearance,Urine CLEAR (Clear); Bilirubin,Urine Negative (Negative); Blood, Urine 1+ (Negative); Color,Urine YELLOW (Yellow); Glucose,Urine (UA) 1+ (Negative); Ketones,Urine Negative (Negative); Leukocyte Esterase,Urine 2+ (Negative); Nitrate,Urine Negative (Negative); PH,Urine 5.5 (5.0-8.5); Protein,Urine TRACE (Negative); Specific Gravity, Urine 1.015 (1.005-1.030); Urobilinogen,Urine 0.2 EU/dl (0.2)
--- NOTE | 2023-04-20 21:00 | PC.NURSE ---
Thorough skin assessment completed with Radha CABRERA-P to assist with full bed bath. Patient has severe excoriation to his sacram/coccyx/groin area. Stale urine smell with very full depends on from home. Patient has circumferential cellulites to his left lower extremity with small weeping blisters scattered.
--- NOTE | 2023-04-20 21:01 | PC.NURSE ---
CALLING HOUSE FOR ADMISSION
[2023-04-20 21:15] LABS: RBC,Urine Occasional #/hpf (0-3); Squamous Epithelial Cell,Urine Occasional #/hpf (0-5); WBC,Urine 20-50 #/hpf (0-3)
--- NOTE | 2023-04-20 21:15 | EXP.HP ---
History of Present Illness *Admission Date: 04/20/23 *Reason for visit:: LLE cellulitis/ sepsis *History of present illness: 68 year old male presented to the ED for c/o LLE pain. Patient describes pain as burning and started last week. PMHX of DM, s/p right AKA, obesity, PAD, HLD, HTN, and seizures. In the ED the patient meets sepsis creiteria with a leukosytosis of 13, HR of 131, and known source of infection. Pt states he was seen by home health earlier today and was febrile. The ED physician spoke with hospitalist team and the patient was admitted to the medical floor. He received 1 L of fluids in the ED and will continue to receive zosyn and vancomycin. He is alert and oriented. Has no other c/o. He lives alone with home health visits. [facility] Disclaimer: The information contained in this section may have been updated after the patient was seen, as this information can be updated by other users. Social History Smoking Status: Former smoker alcohol intake: never substance use type: marijuana current occupational status: retired Travel in the last 8 weeks: None household members: family caffeine: No Review of Systems Review of Systems Review of systems:: pertinent systems reviewed and negative unless documented below Constitutional Constitutional: Reports system reviewed and no additional complaints, except as documented and Reports chills Eyes Eyes: Reports system reviewed and no additional complaints, except as documented ENT Ears, Nose, Mouth, and Throat: Reports system reviewed and no additional complaints, except as documented *Cardiovascular Cardiovascular: Reports system reviewed and no additional complaints, except as documented *Respiratory Respiratory: Reports system reviewed and no additional complaints, except as documented *Gastrointestinal Gastrointestinal: Reports system reviewed and no additional complaints, except as documented *Genitourinary Genitourinary: Reports system reviewed and no additional complaints, except as documented *Musculoskeletal Musculoskeletal: Reports numbness (LLE) and Reports tingling (LLE) Integumentary/Breasts Skin/Breast: Reports system reviewed and no additional complaints, except as documented *Neurologic Neurologic: Reports system reviewed and no additional complaints, except as documented, Reports numbness (LLE) and Reports tingling (LLE) Psychiatric Psychiatric: Reports system reviewed and no additional complaints, except as documented Endocrine Endocrine: Reports system reviewed and no additional complaints, except as documented Hematologic/Lymphatic Hematologic/Lymphatic: Reports system reviewed and no additional complaints, except as documented Allergic/Immunologic Allergic/Immunologic: Reports system reviewed and no additional complaints, except as documented Meds Home Medications and Allergies Home Medications Medication Instructions Recorded Confirmed Type aspirin 81 mg tablet,delayed 81 mg PO DAILY Heart Disease 04/20/23 04/20/23 History release atorvastatin 40 mg tablet 40 mg PO DAILY High Cholesterol 04/20/23 04/20/23 History baclofen 20 mg tablet 20 mg PO DAILYP PRN Muscle Spasms 04/20/23 04/20/23 History buspirone 5 mg tablet 5 mg PO TID Psychiatric 04/20/23 04/20/23 History docusate sodium 250 mg capsule 250 mg PO BID Constipation 04/20/23 04/20/23 History finasteride 5 mg tablet 5 mg PO DAILY High Blood Pressure 04/20/23 04/20/23 History furosemide 40 mg tablet 40 mg PO DAILY Fluid 04/20/23 04/20/23 History glipizide 5 mg tablet 5 mg PO BID Diabetes 04/20/23 04/20/23 History lamotrigine 100 mg tablet 100 mg PO BID Seizure 04/20/23 04/20/23 History lamotrigine 150 mg tablet 150 mg PO HS Seizure 04/20/23 04/20/23 History losartan 50 mg tablet 50 mg PO DAILY High Blood Pressure 04/20/23 04/20/23 History metformin 1,000 mg tablet 1,000 mg PO BID Diabetes 04/20/23 04/20/23 History New Prescriptions
[2023-04-20 21:31] VITALS: BP 136/90; PULSE 117; RESP 19; TEMP 38.7; O2SAT 98
--- NOTE | 2023-04-20 21:39 | PC.NURSE ---
pt to floor via stretcher at this time
[2023-04-20 21:59] VITALS: BP 161/87; PULSE 116; RESP 20; TEMP 37; O2SAT 98; BMI 38.7
[2023-04-20 23:24] LABS: Troponin I < 0.01 ng/ml (0.00-0.034)
--- NOTE | 2023-04-21 00:20 | EXP.SEPSISRE ---
[facility] Tissue Perfusion Eval Sepsis Re-Evaluation Performed: Yes Date Performed: 04/21/23 Time Performed: 00:20
[2023-04-21 02:51] LABS: Troponin I 0.01 ng/ml (0.00-0.034)
[2023-04-21 04:00] VITALS: BP 135/70; PULSE 116; RESP 18; TEMP 36.9; O2SAT 97; BMI 38.6
--- NOTE | 2023-04-21 04:35 | PC.NURSE ---
Since arriving to the floor the patient has rested. did complain of Nausea see MAR. De Los Santos cath remains in place. Coccyx is very excoriated, patch in place. No other issues noted
[2023-04-21 05:55] LABS: Hemoglobin A1C 8.5 % (4.0-6.0)
[2023-04-21 06:41] LABS: POC Glucose,Bedside 291 (70-110)
--- NOTE | 2023-04-21 07:13 | EXP.ACUTE.PN ---
Subjective *Date: 04/21/23 *Time: 18:36 Interval history: Patient denies any chest pain or shortness of breath today. Still has [place] in place, requesting leave within as it is more convenient for him. Explained that this is an increased risk for infection and would like to removed today. Remains afebrile. Redness stable and leg. Tolerating p.o. intake. Patient states that he lives at home, has no desire to go to a senior living. Require significant assistance at home. 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 Also has home health to come check on him and assist with therapy and skilled care Medical Exam Vital signs and Labs for Last 24 Hours: Vital Signs Temp Pulse Pulse Resp BP BP Pulse Ox 04/21/23 04:00 98.4 F 116 H 18 135/70 97 04/21/23 06:49 04/21/23 05:00 04/21/23 03:00 04/21/23 01:00 04/20/23 23:23 04/20/23 23:00 04/20/23 21:59 98.6 F 116 H 20 161/87 H 98 04/20/23 21:31 101.6 F H 117 H 19 136/90 04/20/23 19:13 98.3 F 131 H 19 159/93 H 97 O2 Del Method 04/21/23 04:00 Room Air 04/21/23 06:49 Room Air 04/21/23 05:00 Room Air 04/21/23 03:00 Room Air 04/21/23 01:00 Room Air 04/20/23 23:23 Room Air 04/20/23 23:00 Room Air 04/20/23 21:59 Room Air 04/20/23 21:31 Room Air 04/20/23 19:13 Room Air Intake and Output 04/20/23 04/20/23 04/21/23 15:59 23:59 07:59 Intake Total 1100 / 1350 250 / 250 Output Total 1600 / 1600 800 / 800 Balance -500 / -250 -550 / -550 Intake: Intake, Total IV Amount 1100 / 1350 250 / 250 Vancomycin HCl 2,250 mg In 0.9 250 / 250 % Sodium Chloride 250 ml @ 125 mls/hr IV ONCE ONE Rx#:[id number] Output: Output, Urine Amount 1600 / 1600 800 / 800 Other: Number of Unmeasured Voids 1 Weight 129.773 kg 129.5 kg Patient Weight 04/21/23 23:59 Weight 129.5 kg Laboratory Results - last 24 hr 04/20/23 19:26: WBC 13.1 H, RBC 4.72, Hgb 12.3 L, Hct 38.9 L, MCV 82.3, MCH 26.0 L, MCHC 31.5 L, RDW 15.9, Plt Count 286, MPV 8.5, Neut % (Auto) 83.8 H, Lymph % (Auto) 8.0 L, [place] % (Auto) 6.7, Eos % (Auto) 1.1, Baso % (Auto) 0.4, Neut # (Auto) 11.0 H, Lymph # (Auto) 1.1, [place] # (Auto) 0.9, Eos # (Auto) 0.1, Baso # (Auto) 0.1, PT 10.6, INR 0.98, APTT 25.7, Sodium 139, Potassium 4.7, Chloride 105, Carbon Dioxide 22, Anion Gap 16.7 H, BUN 25 H, Creatinine 0.80, Estimated Creat Clear 116, Estimated GFR 96, Est GFR ( Amer) 116, Glucose 297 H, Hemoglobin A1c 8.5 H, Lactate 1.8, Calcium 9.0, Total Bilirubin 0.3, AST 26, ALT 28, Alkaline Phosphatase 146 H, Troponin I < 0.01, NT-Pro-B Natriuret Pep 824 H, Total Protein 7.6, Albumin 4.1, Globulin 3.5 H, Albumin/Globulin Ratio 1.2, Acetone Level None detected 04/20/23 20:40: Urine Color Yellow, Urine Appearance Clear, Urine pH 5.5, Ur Specific [place] 1.015, Urine Protein Trace, Urine Glucose (UA) 1+, Urine Ketones Negative, Urine Blood 1+, Urine Nitrate Negative, Urine Bilirubin Negative, Urine Urobilinogen 0.2, Ur Leukocyte Esterase 2+ A, Urine RBC Occasional, Urine WBC 20-50, Ur Squamous Epith Cells Occasional, Urine Bacteria None 04/20/23 22:40: Troponin I < 0.01 04/21/23 01:55: Troponin I 0.01 04/21/23 05:39: POC Glucose 291 H I & O for Labs for Last 24 Hours: Intake & Output 04/18/23 04/19/23 04/20/23 04/21/23 23:59 23:59 23:59 23:59 Intake Total 1100 / 1350 250 / 250 Output Total 1600 / 1600 800 / 800 Balance -500 / -250 -550 / -550 Weight 129.773 kg 129.5 kg Microbiology Reports for the Last 24 Hours: Microbiology 04/20/23 22:00 Ankle,Left Gram Stain - Final Constitutional: Present no acute distress, obese, chronically ill appearing and cooperative Head: Present atraumatic and normocephalic ENT: Present normal exam Neck: Present normal inspection Respiratory: Present normal respiratory effort; Absent rhonchi, wheezes or cr
--- NOTE | 2023-04-21 07:49 | EXP.PHA.CONS ---
Pharmacy Consult Date: 04/21/23 Time: 07:49 Referring provider: DR WAHL Reason for Consult:: VANCOMYCIN DOSING CONSULT Allergies Allergy/AdvReac Type Severity Reaction Status Date / Time hydrocodone [From LORTAB] Allergy Unknown NA-NAUSEA/V Verified 04/22/19 20:53 OMITING tramadol AdvReac Unknown Verified 10/18/20 15:39 allergy reaction Home Medications Medication Instructions Recorded Confirmed Type aspirin 81 mg tablet,delayed 81 mg PO DAILY Heart Disease 04/20/23 04/20/23 History release atorvastatin 40 mg tablet 40 mg PO DAILY High Cholesterol 04/20/23 04/20/23 History baclofen 20 mg tablet 20 mg PO DAILYP PRN Muscle Spasms 04/20/23 04/20/23 History buspirone 5 mg tablet 5 mg PO TID Psychiatric 04/20/23 04/20/23 History docusate sodium 250 mg capsule 250 mg PO BID Constipation 04/20/23 04/20/23 History finasteride 5 mg tablet 5 mg PO DAILY High Blood Pressure 04/20/23 04/20/23 History furosemide 40 mg tablet 40 mg PO DAILY Fluid 04/20/23 04/20/23 History glipizide 5 mg tablet 5 mg PO BID Diabetes 04/20/23 04/20/23 History lamotrigine 100 mg tablet 100 mg PO BID Seizure 04/20/23 04/20/23 History lamotrigine 150 mg tablet 150 mg PO HS Seizure 04/20/23 04/20/23 History losartan 50 mg tablet 50 mg PO DAILY High Blood Pressure 04/20/23 04/20/23 History metformin 1,000 mg tablet 1,000 mg PO BID Diabetes 04/20/23 04/20/23 History New Prescriptions to Start Prescriptions: Height: 1.83 m Weight: 129.5 kg Laboratory Results:: Laboratory Results - last 24 hr 04/20/23 19:26: WBC 13.1 H, RBC 4.72, Hgb 12.3 L, Hct 38.9 L, MCV 82.3, MCH 26.0 L, MCHC 31.5 L, RDW 15.9, Plt Count 286, MPV 8.5, Neut % (Auto) 83.8 H, Lymph % (Auto) 8.0 L, [place] % (Auto) 6.7, Eos % (Auto) 1.1, Baso % (Auto) 0.4, Neut # (Auto) 11.0 H, Lymph # (Auto) 1.1, [place] # (Auto) 0.9, Eos # (Auto) 0.1, Baso # (Auto) 0.1, PT 10.6, INR 0.98, APTT 25.7, Sodium 139, Potassium 4.7, Chloride 105, Carbon Dioxide 22, Anion Gap 16.7 H, BUN 25 H, Creatinine 0.80, Estimated Creat Clear 116, Estimated GFR 96, Est GFR ( Amer) 116, Glucose 297 H, Hemoglobin A1c 8.5 H, Lactate 1.8, Calcium 9.0, Total Bilirubin 0.3, AST 26, ALT 28, Alkaline Phosphatase 146 H, Troponin I < 0.01, NT-Pro-B Natriuret Pep 824 H, Total Protein 7.6, Albumin 4.1, Globulin 3.5 H, Albumin/Globulin Ratio 1.2, Acetone Level None detected 04/20/23 20:40: Urine Color Yellow, Urine Appearance Clear, Urine pH 5.5, Ur Specific [place] 1.015, Urine Protein Trace, Urine Glucose (UA) 1+, Urine Ketones Negative, Urine Blood 1+, Urine Nitrate Negative, Urine Bilirubin Negative, Urine Urobilinogen 0.2, Ur Leukocyte Esterase 2+ A, Urine RBC Occasional, Urine WBC 20-50, Ur Squamous Epith Cells Occasional, Urine Bacteria None 04/20/23 22:40: Troponin I < 0.01 04/21/23 01:55: Troponin I 0.01 04/21/23 05:39: POC Glucose 291 H Assessment and Plan Assessment and plan all Dx Assessment and Plan for all problems:: Pharmacokinetic dosing service Objective: Age: 68 yo Serum creatinine: 0.8 mg/dL Height: 72.0 Inches Weight (kg): 129.5 Diagnosis: CELLULITIS Assessment: IBW (kg): 77.60 Dosing wt(kg): 129.5 Estimated Creatinine clearance (ml/min): 95.7 CRCL method: Cockcroft and Gault using ibw(default). Drug selected: Vancomycin Loading dose (mg): 2250 MG Vd (liters): 90.6 (factor used: 0.7 L/kg) Emir (hr-1): 0.084 Half life (hrs): 8.25 CLvanco=?? 7.610 L/hr Recommended dose: 2000 mg Interval: 12 hrs Infusion time (hrs): 2.0 Predicted peak (mcg/mL): 32.0 Predicted trough (mcg/mL): 13.81 Total body weight is being used for vancomycin dosing. Recommendations: Give Vancomycin 2000 mg q 12 hrs with an expected Cpeak of 32.0 mcg/ml and an expected Ctrough of 13.81 mcg/ml TO START 04/21/23 AT 10:00, ONE TIME DOSE OF
[2023-04-21 08:00] VITALS: BP 124/56; PULSE 55; RESP 18; TEMP 36.7; O2SAT 94
[2023-04-21 08:06] LABS: Eosinophils # 0.1 K/mm3 (0.0-0.4); Lymphocytes # 1.4 K/mm3 (0.7-4.5)
--- NOTE | 2023-04-21 08:10 | HMH.PHAINT1 ---
Pharmacy Intervention Comments: Patient's home medications were verified through the external medication history and the patient. -Chester Franco, PharmD student
[2023-04-21 08:15] LABS: Basophils % 0.5 % (0.1-2.0); Eosinophils % 1.1 % (0.1-12.0); Hematocrit 33.9 % (42.0-52.0); Lymphocytes % 16.5 % (10-50); Mean Corpuscular HGB Conc 31.8 g/dL (31.8-35.4); Mean Corpuscular Hemoglobin 26.3 pg (27.0-31.2); Mean Corpuscular Volume 82.7 fl (80-94); Mean Platelet Volume 8.1 fl (7.4-10.4); Monocytes # 0.6 K/mm3 (0.1-1.0); Monocytes % 7.5 % (1.7-9.3); Neutrophils # 6.2 K/mm3 (1.8-7.8); Neutrophils % 74.5 % (37.0-80.0); Platelet Count 227 K/mm3 (142-424); Red Blood Count 4.11 M/mm3 (4.60-6.20); Red Cell Distribution Width 16.1 % (11.5-17.5); White Blood Count 8.3 K/mm3 (4.8-10.8)
[2023-04-21 08:16] LABS: Hemoglobin 10.8 g/dL (14.1-18.0)
[2023-04-21 08:21] LABS: Alanine Aminotransferase 24 U/L (12-78); Albumin Level 3.2 g/dl (3.5-5.0); Alkaline Phosphatase 107 U/L (38-126); Anion Gap 10.4 mEq/L (5-15); Aspartate Amino Transferase 21 U/L (17-59); Bilirubin,Total 0.3 mg/dl (0.2-1.3); Blood Urea Nitrogen 20 mg/dl (9-20); Calcium 8.3 mg/dl (8.4-10.2); Carbon Dioxide 23 mmol/L (22.0-30.0); Chloride 108 mmol/L (98-107); Creatinine Clearance Estimated 128 mL/min (50-200); Estimated Glomerular Filt Rate 112 ml/min (>60); GFR (African American) 135 ML/MIN (>60); Globulin 3.1 g/dL (1.3-3.2); Glucose 256 mg/dl (74-100); Potassium 4.4 mmoL/L (3.5-5.1); Sodium 137 mmol/L (136-145); Total Protein,Serum 6.3 g/dl (6.3-8.2)
[2023-04-21 11:25] LABS: POC Glucose,Bedside 246 (70-110)
--- NOTE | 2023-04-21 11:49 | HMH.PTWOUND ---
Rehab Inpt Wound Evaluation Rehab IP Wound Evaluation Start: 04/21/23 08:24 Freq: ONCE Status: Active Protocol: Document 04/21/23 10:00 JOSE CRUZ (Rec: 04/21/23 11:49 JOSE CRUZ [id number]) Rehab PT Wound Assessment Subjective Subjective 68 yowm adm to [facility] with L LE cellulitis. He has PMH of DM, s/p right AKA, obesity, PAD, HLD, HTN, and seizures. Wound Left Lower Leg Wound Type cellulitis Is This a Chronic Wound No Wound Length (cm) 2.0 Wound Width (cm) 2.0 Wound Depth (cm) 0.1 Wound Bed Appearance [place] Wound Margins Description Indistinct Surrounding Tissue Appearance [place] Edema Type Pitting Edema Degree 1+ Query Text:1+ Trace, Barely Detectable, Rebound 15-30 seconds 2+ Moderate, Slight Indentation, Rebound 10-20 seconds 3+ Deep, Deeper Indentation, Rebound > 30 seconds 4+ Very Deep, Rebound > 60 seconds Wound Drainage Description Serous Drainage Amount Small Primary Dressing Unna Boot Wound Secondary Dressing Type Gauze Roll/Wrap,Adhering Gauze Roll Wound Debridement Method Gauze Wound Debridement Amount of Tissue Minimal Removed Dressing Change Patient Tolerance Tolerated Well Plan/Recommendation Comment Continue Unna Boot dressing changed once every 3-4 days as needed. Eval Complexity Eval Charge Codes 21914 - High Complexity PHYSICIAN CERTIFICATION: I certify the specified therapy services for Vitaly Pool are required, authorized, and reviewed every 30 days.
[2023-04-21 15:50] VITALS: BP 147/61; PULSE 95; RESP 17; TEMP 36.8; O2SAT 99
[2023-04-21 16:36] LABS: POC Glucose,Bedside 250 (70-110)
--- NOTE | 2023-04-21 17:56 | PC.NURSE ---
A&OX4. TOLERATING RA WELL. PT HAS ONLY C/O H/A TODAY, TX WITH TYLENOL PER NOV. EFFECTIVENESS NOTED. WOUND CARE SAW PT TODAY, WRAPPED LEFT LEG. REMOVED F/C, TOLERATED WELL. MALE PURE WICK IN PLACE, WORKING WELL. PT MOVES HIMSELF AROUND IN BED. HAS HAD A GOOD APPETITE. NO OTHER NEEDS OR C/O NOTED THUS FAR, VSS.
[2023-04-21 19:48] VITALS: BP 127/48; PULSE 59; RESP 22; TEMP 37.4; O2SAT 96
[2023-04-21 21:16] LABS: POC Glucose,Bedside 226 (70-110)
[2023-04-22 04:00] VITALS: BP 116/58; PULSE 94; RESP 18; TEMP 37; O2SAT 95; BMI 38.0
--- NOTE | 2023-04-22 04:24 | PC.NURSE ---
NO ACUTE CHANGES THIS SHIFT. PT HAS NOT C/O PAIN THIS SIFT. VSS. TURNING IN BED WITH X1 ASSIST WHEN REQUESTED. MALE PUREWICK IN PLACE. VOIDING W/O DIFFICULTY. REMAINS AFEBRILE. NO OTHER NEEDS OR CONCERNS VOICED AT THIS TIME.
[2023-04-22 05:27] LABS: POC Glucose,Bedside 249 (70-110)
[2023-04-22 07:14] LABS: Basophils % 0.5 % (0.1-2.0); Eosinophils # 0.2 K/mm3 (0.0-0.4); Eosinophils % 2.8 % (0.1-12.0); Hemoglobin 10.4 g/dL (14.1-18.0); Lymphocytes # 1.7 K/mm3 (0.7-4.5); Mean Corpuscular HGB Conc 31.4 g/dL (31.8-35.4); Mean Corpuscular Hemoglobin 26.4 pg (27.0-31.2); Mean Platelet Volume 8.4 fl (7.4-10.4); Monocytes # 0.7 K/mm3 (0.1-1.0); Monocytes % 8.3 % (1.7-9.3); Neutrophils # 6.1 K/mm3 (1.8-7.8); Neutrophils % 69.5 % (37.0-80.0); Platelet Count 209 K/mm3 (142-424); Red Blood Count 3.93 M/mm3 (4.60-6.20); Red Cell Distribution Width 15.9 % (11.5-17.5); White Blood Count 8.7 K/mm3 (4.8-10.8)
[2023-04-22 07:20] LABS: Chloride 107 mmol/L (98-107)
[2023-04-22 07:21] LABS: Sodium 137 mmol/L (136-145)
[2023-04-22 07:23] LABS: Alanine Aminotransferase 20 U/L (12-78); Alkaline Phosphatase 107 U/L (38-126); Aspartate Amino Transferase 19 U/L (17-59); Bilirubin,Total 0.3 mg/dl (0.2-1.3); Blood Urea Nitrogen 22 mg/dl (9-20); Carbon Dioxide 23 mmol/L (22.0-30.0); Creatinine Clearance Estimated 126 mL/min (50-200); Estimated Glomerular Filt Rate 74 ml/min (>60); GFR (African American) 90 ML/MIN (>60)
[2023-04-22 07:24] LABS: Albumin Level 2.8 g/dl (3.5-5.0); Calcium 8.4 mg/dl (8.4-10.2); Globulin 2.9 g/dL (1.3-3.2); Glucose 232 mg/dl (74-100); Magnesium 1.8 mg/dl (1.6-2.3); Total Protein,Serum 5.7 g/dl (6.3-8.2)
[2023-04-22 08:00] VITALS: BP 120/55; PULSE 104; RESP 22; TEMP 36.8; O2SAT 94
--- NOTE | 2023-04-22 10:51 | EXP.PHA.CONS ---
Pharmacy Consult Date: 04/22/23 Time: 10:51 Referring provider: DR WAHL Reason for Consult:: VANCOMYCIN TROUGH LEVEL OBTAINED Allergies Allergy/AdvReac Type Severity Reaction Status Date / Time hydrocodone [From LORTAB] Allergy Unknown NA-NAUSEA/V Verified 04/22/19 20:53 OMITING tramadol AdvReac Unknown Verified 10/18/20 15:39 allergy reaction Home Medications Medication Instructions Recorded Confirmed Type aspirin 81 mg tablet,delayed 81 mg PO DAILY Heart Disease 04/20/23 04/20/23 History release atorvastatin 40 mg tablet 40 mg PO DAILY High Cholesterol 04/20/23 04/20/23 History baclofen 20 mg tablet 20 mg PO DAILYP PRN Muscle Spasms 04/20/23 04/20/23 History buspirone 5 mg tablet 5 mg PO TID Mood 04/20/23 04/20/23 History docusate sodium 250 mg capsule 250 mg PO BID Constipation 04/20/23 04/20/23 History finasteride 5 mg tablet 5 mg PO DAILY BPH 04/20/23 04/20/23 History furosemide 40 mg tablet 40 mg PO DAILY Fluid 04/20/23 04/20/23 History glipizide 5 mg tablet 5 mg PO BID Diabetes 04/20/23 04/20/23 History lamotrigine 100 mg tablet 100 mg PO BID Seizure 04/20/23 04/20/23 History losartan 50 mg tablet 50 mg PO DAILY High Blood Pressure 04/20/23 04/20/23 History metformin 1,000 mg tablet 1,000 mg PO BID Diabetes 04/20/23 04/20/23 History cephalexin 500 mg capsule 500 mg PO TID Infection 04/21/23 04/21/23 History lamotrigine 150 mg tablet 150 mg PO HS Seizures 04/21/23 04/21/23 History New Prescriptions to Start Prescriptions: Height: 1.83 m Weight: 127.323 kg Laboratory Results:: Laboratory Results - last 24 hr 04/20/23 20:40: Urine Color Yellow, Urine Appearance Clear, Urine pH 5.5, Ur Specific [place] 1.015, Urine Protein Trace, Urine Glucose (UA) 1+, Urine Ketones Negative, Urine Blood 1+, Urine Nitrate Negative, Urine Bilirubin Negative, Urine Urobilinogen 0.2, Ur Leukocyte Esterase 2+ A, Urine RBC Occasional, Urine WBC 20-50, Ur Squamous Epith Cells Occasional, Urine Bacteria None 04/21/23 11:13: POC Glucose 246 H 04/21/23 16:26: POC Glucose 250 H 04/21/23 21:02: POC Glucose 226 H 04/22/23 05:16: POC Glucose 249 H 04/22/23 06:34: WBC 8.7, RBC 3.93 L, Hgb 10.4 L, Hct 33.0 L, MCV 84.0, MCH 26.4 L, MCHC 31.4 L, RDW 15.9, Plt Count 209, MPV 8.4, Neut % (Auto) 69.5, Lymph % (Auto) 19.0, [place] % (Auto) 8.3, Eos % (Auto) 2.8, Baso % (Auto) 0.5, Neut # (Auto) 6.1, Lymph # (Auto) 1.7, [place] # (Auto) 0.7, Eos # (Auto) 0.2, Baso # (Auto) 0.0, Sodium 137, Potassium 4.0, Chloride 107, Carbon Dioxide 23, Anion Gap 11.0, BUN 22 H, Creatinine 1.00 D, Estimated Creat Clear 126, Estimated GFR 74, Est GFR ( Amer) 90 D, Glucose 232 H, Calcium 8.4, Magnesium 1.8, Total Bilirubin 0.3, AST 19, ALT 20, Alkaline Phosphatase 107, Total Protein 5.7 L, Albumin 2.8 L D, Globulin 2.9, Albumin/Globulin Ratio 1.0 L 04/22/23 09:40: Vancomycin Trough 18.0 H Assessment and Plan Assessment and plan all Dx Assessment and Plan for all problems:: Pharmacokinetic dosing service Weight: 127.323 Kilograms Vancomycin single level analysis: Current dose being given: 2000 mg Current dosing interval: 12 hrs Current infusion time (hrs): 2 Single level Trough Data: Trough level obtained: 18 mcg/ml Desired peak: 35 mcg/ml Desired trough: 12.5 mcg/ml Estimated PK Parameters: New rate constant (kendra): 0.068 hr-1 Half-life: 10.19 Hours Vd from levels: 89.13 Liters (0.7 L/kg) CLvanco=?? 6.061 L/hr Estimated New Dose and Interval Recommended dose: 2293.5 mg Recommended interval: 17.1 Hrs Recommendations: Give Vancomycin 2250 mg q 18 hrs. Infuse over 2 hrs Expected Cpeak: 33.4 mcg/mL Expected Ctrough: 11.3 mcg/mL AUC 0-24 /MURRAY Data: MURRAY 0.5 mcg/mL:?? AUC/MURRAY:? 989.9 MURRAY 1.0 mcg/mL:?? AUC/MURRAY:? 495.0 Thank you for the consult
[2023-04-22 11:14] LABS: POC Glucose,Bedside 327 (70-110)
--- NOTE | 2023-04-22 13:59 | EXP.ACUTE.PN ---
Subjective *Date: 04/22/23 *Time: 13:59 Interval history: Mr. Pool remained stable overnight. Continues to have incontinence. Does not feel when he needs to pee. States he has very little control over his urine output. Denies any burning or dysuria. Stable on room air. Tolerating p.o. intake with no nausea or vomiting. Denies any pain in leg. Tolerating Unna boot well. Medical Exam Vital signs and Labs for Last 24 Hours: Vital Signs Temp Pulse Resp BP Pulse Ox O2 Del Method 04/22/23 12:43 Room Air 04/22/23 11:00 Room Air 04/22/23 08:00 98.3 F 104 H 22 120/55 L 94 L Room Air 04/22/23 08:54 Room Air 04/22/23 08:00 Room Air 04/22/23 06:51 Room Air 04/22/23 05:00 Room Air 04/22/23 04:00 98.6 F 94 H 18 116/58 L 95 Room Air 04/22/23 03:00 Room Air 04/22/23 01:00 Room Air 04/21/23 23:00 Room Air 04/21/23 21:00 Room Air 04/21/23 20:00 Room Air 04/21/23 19:48 99.3 F 59 L 22 127/48 L 96 Room Air 04/21/23 18:31 Room Air 04/21/23 16:31 Room Air 04/21/23 15:50 98.2 F 95 H 17 147/61 H 99 Room Air 04/21/23 15:00 Room Air Intake and Output 04/21/23 04/22/23 04/22/23 23:59 07:59 15:59 Intake Total 590 / 1560 360 / 360 Output Total 400 / 400 Balance 590 / -40 -400 / -40 360 / -40 Intake: Intake, Oral Amount 240 / 960 360 / 360 Intake, Total IV Amount 350 / 600 Piperacillin/Tazo 4.5 gm In 0.9 100 / 100 % Sodium Chloride 100 ml @ 200 mls/hr IV Q8H [facility] Rx#:[id number] Vancomycin HCl 2,250 mg In 0.9 250 / 500 % Sodium Chloride 250 ml @ 125 mls/hr IV ONCE ONE Rx#:[id number] Output: Output, Urine Amount 400 / 400 Other: Number of Bowel Movements 1 Weight 127.323 kg 127.323 kg Patient Weight 04/22/23 23:59 Weight 127.323 kg Laboratory Results - last 24 hr 04/20/23 20:40: Urine Color Yellow, Urine Appearance Clear, Urine pH 5.5, Ur Specific [place] 1.015, Urine Protein Trace, Urine Glucose (UA) 1+, Urine Ketones Negative, Urine Blood 1+, Urine Nitrate Negative, Urine Bilirubin Negative, Urine Urobilinogen 0.2, Ur Leukocyte Esterase 2+ A, Urine RBC Occasional, Urine WBC 20-50, Ur Squamous Epith Cells Occasional, Urine Bacteria None 04/21/23 16:26: POC Glucose 250 H 04/21/23 21:02: POC Glucose 226 H 04/22/23 05:16: POC Glucose 249 H 04/22/23 06:34: WBC 8.7, RBC 3.93 L, Hgb 10.4 L, Hct 33.0 L, MCV 84.0, MCH 26.4 L, MCHC 31.4 L, RDW 15.9, Plt Count 209, MPV 8.4, Neut % (Auto) 69.5, Lymph % (Auto) 19.0, [place] % (Auto) 8.3, Eos % (Auto) 2.8, Baso % (Auto) 0.5, Neut # (Auto) 6.1, Lymph # (Auto) 1.7, [place] # (Auto) 0.7, Eos # (Auto) 0.2, Baso # (Auto) 0.0, Sodium 137, Potassium 4.0, Chloride 107, Carbon Dioxide 23, Anion Gap 11.0, BUN 22 H, Creatinine 1.00 D, Estimated Creat Clear 126, Estimated GFR 74, Est GFR ( Amer) 90 D, Glucose 232 H, Calcium 8.4, Magnesium 1.8, Total Bilirubin 0.3, AST 19, ALT 20, Alkaline Phosphatase 107, Total Protein 5.7 L, Albumin 2.8 L D, Globulin 2.9, Albumin/Globulin Ratio 1.0 L 04/22/23 09:40: Vancomycin Trough 18.0 H 04/22/23 10:40: POC Glucose 327 H* I & O for Labs for Last 24 Hours: Intake & Output 04/19/23 04/20/23 04/21/23 04/22/23 23:59 23:59 23:59 23:59 Intake Total 1100 / 1350 1560 / 1560 360 / 360 Output Total 1600 / 1600 1600 / 1600 400 / 400 Balance -500 / -250 -40 / -40 -40 / -40 Weight 129.773 kg 129.5 kg 127.323 kg Microbiology Reports for the Last 24 Hours: Microbiology 04/20/23 20:40 Urine,Clean Catch Urine Culture - Preliminary Gram Negative Rods 04/20/23 19:43 Blood Blood Culture - Preliminary 04/20/23 22:00 Ankle,Left Gram Stain - Final 04/20/23 22:00 Ankle,Left Wound Culture - Preliminary NO GROWTH AFTER 24 HOURS Constitutional: Present no acute distress, obese, chronically ill appearing and cooperative Head: Present atrauma
[2023-04-22 15:09] VITALS: BMI 38.0
[2023-04-22 16:00] VITALS: BP 113/51; PULSE 96; RESP 22; TEMP 36.7; O2SAT 95
[2023-04-22 16:54] LABS: POC Glucose,Bedside 267 (70-110)
--- NOTE | 2023-04-22 18:31 | PC.NURSE ---
A&OX4. TOLERATING RA WELL. PT HAS HAD NO C/O THUS FAR THIS SHIFT. WE ARE HELPING TURN PT IN BED, X2 ASSIST. FEMALE PURE WICK AND BRIEF IN PLACE FOR BETTER SKIN INTEGRITY, BEING THAT PT HAS CONSTANT SLOW STREAM OF URINE. L LEG STILL WRAPPED IN DRESSING. VSS.
[2023-04-22 19:49] LABS: POC Glucose,Bedside 223 (70-110)
[2023-04-22 20:00] VITALS: BP 112/50; PULSE 100; RESP 18; TEMP 36.7; O2SAT 99
[2023-04-23 04:00] VITALS: BP 138/48; PULSE 97; RESP 18; TEMP 36.6; O2SAT 94; BMI 38.9
--- NOTE | 2023-04-23 04:13 | PC.NURSE ---
No acute changes this shift. Pt has rested well. No c/o pain this shift. BRANDEN boot in place to LLE. VSS. Pt is eager to go home. No other needs voiced at this time.
[2023-04-23 05:20] LABS: POC Glucose,Bedside 248 (70-110)
[2023-04-23 06:29] LABS: Basophils % 0.5 % (0.1-2.0); Eosinophils # 0.4 K/mm3 (0.0-0.4); Eosinophils % 5.9 % (0.1-12.0); Hematocrit 31.5 % (42.0-52.0); Hemoglobin 9.8 g/dL (14.1-18.0); Lymphocytes # 1.7 K/mm3 (0.7-4.5); Lymphocytes % 22.4 % (10-50); Mean Corpuscular Hemoglobin 25.7 pg (27.0-31.2); Mean Corpuscular Volume 82.8 fl (80-94); Mean Platelet Volume 8.6 fl (7.4-10.4); Monocytes # 0.6 K/mm3 (0.1-1.0); Monocytes % 7.4 % (1.7-9.3); Neutrophils # 4.8 K/mm3 (1.8-7.8); Neutrophils % 63.8 % (37.0-80.0); Platelet Count 223 K/mm3 (142-424); Red Cell Distribution Width 15.8 % (11.5-17.5); White Blood Count 7.5 K/mm3 (4.8-10.8)
[2023-04-23 06:37] LABS: Chloride 105 mmol/L (98-107); Sodium 137 mmol/L (136-145)
[2023-04-23 06:38] LABS: Potassium 3.9 mmoL/L (3.5-5.1)
[2023-04-23 06:40] LABS: Alanine Aminotransferase 21 U/L (12-78); Albumin Level 2.7 g/dl (3.5-5.0); Albumin/Globulin Ratio 0.9 (1.1-1.8); Alkaline Phosphatase 100 U/L (38-126); Anion Gap 12.9 mEq/L (5-15); Aspartate Amino Transferase 20 U/L (17-59); Bilirubin,Total 0.2 mg/dl (0.2-1.3); Blood Urea Nitrogen 21 mg/dl (9-20); Carbon Dioxide 23 mmol/L (22.0-30.0); Creatinine Clearance Estimated 129 mL/min (50-200); Estimated Glomerular Filt Rate 84 ml/min (>60); GFR (African American) 101 ML/MIN (>60); Globulin 3.1 g/dL (1.3-3.2); Total Protein,Serum 5.8 g/dl (6.3-8.2)
[2023-04-23 06:41] LABS: Calcium 8.3 mg/dl (8.4-10.2); Glucose 243 mg/dl (74-100)
[2023-04-23 06:57] LABS: Magnesium 1.8 mg/dl (1.6-2.3)
--- NOTE | 2023-04-23 07:20 | EXP.DC.SUM ---
General Admission date:: 04/20/23 Discharge date: 04/23/23 HPI HPI HPI: 68 year old male presented to the ED for c/o LLE pain. Patient describes pain as burning and started last week. PMHX of DM, s/p right AKA, obesity, PAD, HLD, HTN, and seizures. In the ED the patient meets sepsis creiteria with a leukosytosis of 13, HR of 131, and known source of infection. Pt states he was seen by home health earlier today and was febrile. The ED physician spoke with hospitalist team and the patient was admitted to the medical floor. He received 1 L of fluids in the ED and will continue to receive zosyn and vancomycin. He is alert and oriented. Has no other c/o. He lives alone with home health visits. Hospital Course Hospital Course Hospital Course: 68 year old male presented to the ED for c/o LLE pain. Patient describes pain as burning and started last week. PMHX of DM, s/p right AKA, obesity, PAD, HLD, HTN, and seizures. In the ED the patient meets sepsis criteria with a leukosytosis of 13, HR of 131, and known source of infection. Cellulitis resolving. Urine culture growing 10-20,000 gram-negative rods at time of discharge. Patient has chronic incontinence. At this time can transition to oral antibiotics to complete course for cellulitis. Will include coverage for possible urinary source as well and antibiotic selection. Stable for discharge home with home health. Given patient's comorbidities, mobility issues, and therapy and nursing needs, he is at high risk for readmission. Patient however stresses that he wants to go home. Stable to discharge at this time. Problems addressed as follows: SEPSIS, resolved CELLULITIS UTI -sepsis criteria with a leukosytosis of 13, HR of 131, and known source of infection (LLE cellulitis) on admission. Started on broad-spectrum antibiotics with Zosyn and vancomycin. Tolerated antibiotics well. His white cell count remained within a normal range. Patient had a single blood culture come back positive for staph species, suspected commensal organism. Urine culture obtained showing 10-20,000 CFU's of gram-negative rods. Will transition to cefdinir to complete treatment for cellulitis as well as bacteria. 4 more days of antibiotics needed. Provided to him via meds to beds before discharge. No growth from wound cultures. Unna boot removed on day of discharge showing significant improvement in appearance of leg. Patient to resume home health, consulted for PT/OT/wound evaluation. DM -A1c elevated 8.5 on admission. Patient was initiated on long-acting insulin with glargine. Will continue this at discharge with 25 units nightly. Resume home regimen for diabetes. Have close follow-up with PCP for further adjustment of diabetes regimen and close monitoring. Diabetes complicates all aspects of his health and risk for recurring infections. SEIZURE DISORDER PVD HTN HLD -Continue home medications aspirin 81 mg, atorvastatin 40 mg, finasteride 5mg, lamotrigine 150 mg, and losartan 50 mg daily. BPH Incontinence - continue finasteride. Started tamsulosin 0.8mg QHS OBESITY -complicates all aspects of care Stable for discharge home. Extensive time on counseling with new medications and adjustments to his regimen. Questions answered. Spent 30 minutes in discharge counseling and direct care with patient. Exam Data for Last 24 hours Vital signs and Labs for Last 24 Hours: Temp Pulse Resp BP Pulse Ox O2 Del Method 97.8 F 97 H 18 138/48 L 94 L Room Air 04/23/23 04:00 04/23/23 04:00 04/23/23 04:00 04/23/23 04:00 04/23/23 04:00 04/23/23 06:53 Laboratory Results - last 24 hr 04/20/23 20:40: Urine Color Yellow, Urine Appearance Clear, Urine pH 5.5, Ur Specific [place] 1.015, Urine Protein Trace, Urine Glucose (UA) 1+, Urine Ketones Negative, Urine Blood 1+, Urine Nitrate Negative, Urine Bilirubin Negative, Urine Urobilinogen 0.2, Ur Leukocyte Esterase 2+ A, Urine RBC Occasional, Urine WBC 2
--- NOTE | 2023-04-23 07:42 | SW/DCPLANNER ---
Addendum entered by Bethany Campuzano 04/23/23 10:49: Patient information/order has been faxed to [email or web address] to resume home health services. Patient will discharge home today. Original Note: Patient is currently established with [facility]. Patient plans to return home today w/ home health services and assistance from family/friends at home. Patient is not interested in placement at this time. I will continue to follow up with this patient until medically stable for discharge.
[2023-04-23 08:00] VITALS: BP 133/73; PULSE 96; RESP 18; TEMP 36.6; O2SAT 96
[2023-04-24 04:27] LABS: POC Glucose,Bedside 299 (70-110)
--- NOTE | 2023-04-27 11:11 | CARE MANAGER ---
Called patient to discuss recent discharge. Patient stated that he is doing well, and has started all new medication prescribed at discharge. No concerns or questions at time of call.
== END 2023-04-23 14:09 | disposition home health service (06) ==
LOC: ER 20:20 → 2ND 21:18
PROVIDERS: Nurse Practitioner Critical Care Medicine; Admitting Provider Internal Medicine Adolescent Medicine; Emergency Provider Emergency Medicine; Visit Provider Internal Medicine Adolescent Medicine
DX: A41.9 Sepsis, unspecified organism (principal); L03.116 Cellulitis of left lower limb; Z79.4 Long term (current) use of insulin; G40.909 Epilepsy, unspecified, not intractable, without status epilepticus; I73.9 Peripheral vascular disease, unspecified; I10 Essential (primary) hypertension; E78.5 Hyperlipidemia, unspecified; E66.9 Obesity, unspecified; E11.51 Type 2 diabetes mellitus with diabetic peripheral angiopathy without gangrene; Z68.39 Body mass index [BMI] 39.0-39.9, adult; E11.9 Type 2 diabetes mellitus without complications; N40.0 Benign prostatic hyperplasia without lower urinary tract symptoms; R32 Unspecified urinary incontinence; Z89.611 Acquired absence of right leg above knee
CPT/HCPCS: 36415; 51702; 80053; 80202; 81001; 82009; 82962; 83036; 83605; 83735; 83880; 84484; 85025; 85610; 85730; 87040; 87070; 87077; 87081; 87086; 87088; 87186; 87205; 93005; 99291; G0378; J2405; J2543; J3370

== ENCOUNTER 2023-05-18 21:56 | Emergency (ER) | payer MEDICARE, SELFPAY ==
[2023-05-18 21:56] VITALS: BP 138/74; PULSE 110; RESP 16; TEMP 37.1; O2SAT 98; BMI 35.2
[2023-05-18 22:01] VITALS: BP 120/56; PULSE 113; RESP 22; O2SAT 96
[2023-05-18 22:31] VITALS: BP 134/73; PULSE 109; RESP 20; O2SAT 97
[2023-05-18 23:01] VITALS: BP 94/54; PULSE 110; O2SAT 89
--- NOTE | 2023-05-18 23:13 | XR_ITS ---
PROCEDURE INFORMATION: Exam: XR Chest Exam date and time: 05/18/2023 11:27 PM Age: 68 years old Clinical indication: Shortness of breath; Additional info: Fatigue, SOA TECHNIQUE: Imaging protocol: Radiologic exam of the chest. Views: 1 view. COMPARISON: CR XR CHEST PORTABLE 10/25/2020 8:46 PM FINDINGS: Lungs: Unremarkable. No consolidation. Pleural spaces: Unremarkable. No pleural effusion. No pneumothorax. Heart/Mediastinum: Stable heart size. Bones/joints: Stable bones. IMPRESSION: No acute findings.
--- NOTE | 2023-05-18 23:27 | HMH.EDGENADL ---
Discharge Plan Disposition Patient Disposition: Home, Self-Care Condition: Good Prescriptions Prescriptions: No Action losartan 50 mg tablet 50 mg PO DAILY Patient Comments: TAKE ONE TABLET BY MOUTH ONCE DAILY furosemide 40 mg tablet 40 mg PO DAILY Patient Comments: TAKE ONE TABLET BY MOUTH ONCE DAILY atorvastatin 40 mg tablet 40 mg PO DAILY Patient Comments: TAKE ONE TABLET BY MOUTH ONCE DAILY buspirone 5 mg tablet 5 mg PO TID Patient Comments: TAKE ONE TABLET BY MOUTH THREE TIMES DAILY aspirin 81 mg tablet,delayed release (DR/EC) 81 mg PO DAILY Patient Comments: TAKE ONE TABLET BY MOUTH ONCE DAILY baclofen 20 mg tablet 20 mg PO DAILYP PRN (Reason: Muscle Spasms) Patient Comments: take 1 tab(s) by mouth once a day as needed for muscle spasms metformin 1,000 mg tablet 1,000 mg PO BID Patient Comments: TAKE ONE TABLET BY MOUTH TWICE DAILY docusate sodium 250 mg capsule 250 mg PO BID Patient Comments: TAKE ONE CAPSULE BY MOUTH TWICE DAILY lamotrigine 100 mg tablet 100 mg PO BID Patient Comments: TAKE ONE TABLET BY MOUTH TWICE DAILY finasteride 5 mg tablet 5 mg PO DAILY Patient Comments: TAKE ONE TABLET BY MOUTH ONCE DAILY glipizide 5 mg tablet 5 mg PO BID Patient Comments: TAKE ONE TABLET BY MOUTH TWICE DAILY lamotrigine 150 mg tablet 150 mg PO HS Patient Comments: TAKE ONE TABLET BY MOUTH AT BEDTIME Rx Instructions: 150mg by mouth nightly with the 100mg tablet for seizures tamsulosin 0.4 mg Capsule 0.8 mg PO HS 30 Days Qty: 60 0RF insulin glargine [Lantus Solostar U-100 Insulin] 100 unit/mL (3 mL) Insulin Pen 25 unit SQ HS 30 Days Qty: 7.5 0RF cefdinir 300 mg capsule 300 mg PO BID 4 Days Qty: 8 0RF Referrals Follow up/Referrals: Britton Fields MD [Staff Physician] - See instructions Clinical Impressions Clinical Impression: Fatigue, Encounter for medical assessment, Leukocytosis, Pressure injury of back, stage 2 Instructions Patient Instructions: DI for Urinary Tract Infection (UTI), DI for Urinary Tract Infection in Children Discharge ED Provider: Mark Bennett General Adult HPI General Chief complaint: Urogenital-Male Stated complaint: Painful urination Time Seen by Provider: 05/18/23 23:00 Mode of Arrival: EMS Source of Information: Patient Limitations: No Limitations Description of Symptoms (Recalled from ER Triage Doc. by RN): pt c/o increrasing painful urination x several day. pt has chronic ambrose due to wound. pt states home health did a visit today. pt denies any abd pain. History of Present Illness HPI narrative: 68-year-old male history of right AKA, hypertension, hyperlipidemia, morbid obesity, recent admission for cellulitis, diabetes, presents with multiple complaints. He reports that he hurts all over . Reports that he is more fatigued than normal. Reports that he has a chronic indwelling Ambrose and has had some burning with urination with cloudy sediment over the last couple of days. Denies any fever at home. Denies any chest pain abdominal pain shortness of breath. Related Data Home Medications Medication Instructions Recorded Confirmed aspirin 81 mg tablet,delayed 81 mg PO DAILY Heart Disease 04/20/23 04/20/23 release atorvastatin 40 mg tablet 40 mg PO DAILY High Cholesterol 04/20/23 04/20/23 baclofen 20 mg tablet 20 mg PO DAILYP PRN Muscle Spasms 04/20/23 04/20/23 buspirone 5 mg tablet 5 mg PO TID Mood 04/20/23 04/20/23 docusate sodium 250 mg capsule 250 mg PO BID Constipation 04/20/23 04/20/23 finasteride 5 mg tablet 5 mg PO DAILY BPH 04/20/23 04/20/23 furosemide 40 mg tablet 40 mg PO DAILY Fluid 04/20/23 04/20/23 glipizide 5 mg tablet 5 mg PO BID Diabetes 04/20/23 04/20/23 lamotrigine 100 mg tablet 100 mg PO BID Seizure 04/20/23 04/20/23 losartan 50 mg tablet 50 mg PO DAILY High Blood Pressure
[2023-05-18 23:31] VITALS: BP 94/49; PULSE 106; O2SAT 94
[2023-05-18 23:51] VITALS: BP 83/49; PULSE 105; O2SAT 95
[2023-05-18 23:58] LABS: Microscopic, Urine URINE MICROSCOPIC (MICROSCOPIC)
[2023-05-19 00:01] VITALS: BP 115/58; PULSE 102; O2SAT 93
[2023-05-19 00:03] LABS: Appearance,Urine CLEAR (Clear); Basophils # 0.1 K/mm3 (0-0.2); Basophils % 0.4 % (0.1-2.0); Bilirubin,Urine Negative (Negative); Blood, Urine 3+ (Negative); Color,Urine YELLOW (Yellow); Eosinophils # 0.6 K/mm3 (0.0-0.4); Eosinophils % 4.1 % (0.1-12.0); Glucose,Urine (UA) TRACE (Negative); Hematocrit 34.9 % (42.0-52.0); Hemoglobin 11.3 g/dL (14.1-18.0); Ketones,Urine Negative (Negative); Leukocyte Esterase,Urine TRACE (Negative); Lymphocytes # 1.9 K/mm3 (0.7-4.5); Lymphocytes % 12.4 % (10-50); Mean Corpuscular HGB Conc 32.3 g/dL (31.8-35.4); Mean Corpuscular Hemoglobin 25.8 pg (27.0-31.2); Mean Platelet Volume 7.8 fl (7.4-10.4); Monocytes # 0.9 K/mm3 (0.1-1.0); Neutrophils # 11.6 K/mm3 (1.8-7.8); Neutrophils % 77.2 % (37.0-80.0); Nitrate,Urine Negative (Negative); Platelet Count 333 K/mm3 (142-424); Protein,Urine 3+ (Negative); Red Blood Count 4.37 M/mm3 (4.60-6.20); Red Cell Distribution Width 15.6 % (11.5-17.5); Urobilinogen,Urine 0.2 EU/dl (0.2)
[2023-05-19 00:04] LABS: Chloride 107 mmol/L (98-107); Potassium 4.4 mmoL/L (3.5-5.1); Sodium 139 mmol/L (136-145); White Blood Count 14.9 K/mm3 (4.8-10.8)
[2023-05-19 00:07] LABS: Alanine Aminotransferase 24 U/L (12-78); Albumin Level 3.4 g/dl (3.5-5.0); Albumin/Globulin Ratio 0.8 (1.1-1.8); Alkaline Phosphatase 131 U/L (38-126); Anion Gap 15.4 mEq/L (5-15); Aspartate Amino Transferase 22 U/L (17-59); Bilirubin,Total 0.3 mg/dl (0.2-1.3); Blood Urea Nitrogen 29 mg/dl (9-20); Carbon Dioxide 21 mmol/L (22.0-30.0); Creatinine Clearance Estimated 116 mL/min (50-200); Estimated Glomerular Filt Rate 96 ml/min (>60); GFR (African American) 116 ML/MIN (>60); Globulin 4.3 g/dL (1.3-3.2); Total Protein,Serum 7.7 g/dl (6.3-8.2)
[2023-05-19 00:08] LABS: Calcium 9.3 mg/dl (8.4-10.2); Glucose 235 mg/dl (74-100); Lactic Acid 1.3 mmol/L (0.7-2.1)
[2023-05-19 00:16] LABS: NT Pro Brain Natriuretic Pep. 884 pg/mL (0-125)
--- NOTE | 2023-05-19 01:10 | PC.NURSE ---
notified [facility] that pt is ready to be transport back to home
[2023-05-19 01:11] VITALS: BP 118/68; PULSE 91; RESP 18; TEMP 37.1; O2SAT 95
--- NOTE | 2023-05-19 01:34 | PC.NURSE ---
Per Zayda, called EMS a second time as they had not arrived to [place] supervisor the pt for a transfer back to his home. CR
--- NOTE | 2023-05-19 02:39 | PC.NURSE ---
pt resting quietly voiced no c/o call light within reach
--- NOTE | 2023-05-19 03:30 | PC.NURSE ---
rounded on pt. pt resting quietly call light in reach
--- NOTE | 2023-05-19 04:44 | PC.NURSE ---
rounded on pt. pt resting quietly call light in reach
== END 2023-05-19 08:55 | disposition home or self-care (01) ==
PROVIDERS: Emergency Provider Emergency Medicine; PCP Internal Medicine Adolescent Medicine
DX: R30.9 Painful micturition, unspecified (principal); R53.83 Other fatigue; D72.829 Elevated white blood cell count, unspecified; L89.152 Pressure ulcer of sacral region, stage 2; E11.9 Type 2 diabetes mellitus without complications; I10 Essential (primary) hypertension; E78.5 Hyperlipidemia, unspecified; E66.01 Morbid (severe) obesity due to excess calories; Z89.611 Acquired absence of right leg above knee
CPT/HCPCS: 51702; 71045; 80053; 81001; 83605; 83880; 85025; 87040; 99285

== ENCOUNTER 2023-06-04 11:55 | Observation (INO) | payer MEDICARE, SELFPAY ==
[2023-06-04] VITALS (11 sets, daily range): BP systolic 105–149; BP diastolic 59–88; PULSE 93–110; RESP 16–20; TEMP 36.4–36.9; O2SAT 96–98; BMI 35.9; BMI 36.6
--- NOTE | 2023-06-04 12:45 | CT_ITS ---
FINAL REPORT TECHNIQUE: Post contrast axial imaging of the aorta and bilateral lower extremity was obtained and reviewed. This study was performed with techniques to keep radiation doses as low as reasonably achievable (ALARA). Individualized dose reduction techniques using automated exposure control or adjustment of mA and/or kV according to the patient''s size were employed. CLINICAL HISTORY: LLE infection, concern for PAD FINDINGS: There is scarring at the lung bases. The liver parenchyma is homogeneous. The gallbladder is present. The spleen, pancreas, adrenals, kidneys are unremarkable. An IVC filter is present. There is moderate vascular calcification of the abdominal aorta and iliac vessels. There is mild narrowing of the left external iliac artery. The celiac axis and SMA are patent. The renal arteries are patent. Right: There is scattered calcification in the right superficial femoral artery. Bulky calcifications are seen at the level of the abductor canal. Note is made of [id number] amputation. Left: There are scattered calcifications, particularly at the abductor canal. Stenosis measures up to 80%. Finding is best seen on image 272 of series 8. There is suboptimal contrast into the tibial vessels and extensive venous contamination. There is extensive subcutaneous soft tissue edema in the left lower leg measuring up to 2.3 cm. IMPRESSION: [id number] amputation on the right. Extensive calcification in the region of the abductor tendons on the left measuring up to 80%. Poor visualization of the tibial vessels on the left. Subcutaneous soft tissue edema in the left lower leg which may be due to cellulitis. Catheter directed angiography may be of value. Reviewed, Interpreted and Dictated by Joao Serrano MD Transcribed by Nakia Mcconnell Authenticated and [facility]
--- NOTE | 2023-06-04 12:47 | HMH.EDGENADL ---
Discharge Plan Disposition Patient Disposition: Admitted Chief Complaint: Wound/Laceration Prescriptions Prescriptions: No Action losartan 50 mg tablet 50 mg PO DAILY Patient Comments: TAKE ONE TABLET BY MOUTH ONCE DAILY furosemide 40 mg tablet 40 mg PO DAILY Patient Comments: TAKE ONE TABLET BY MOUTH ONCE DAILY atorvastatin 40 mg tablet 40 mg PO DAILY Patient Comments: TAKE ONE TABLET BY MOUTH ONCE DAILY buspirone 5 mg tablet 5 mg PO TID Patient Comments: TAKE ONE TABLET BY MOUTH THREE TIMES DAILY aspirin 81 mg tablet,delayed release (DR/EC) 81 mg PO DAILY Patient Comments: TAKE ONE TABLET BY MOUTH ONCE DAILY baclofen 20 mg tablet 20 mg PO DAILYP PRN (Reason: Muscle Spasms) Patient Comments: take 1 tab(s) by mouth once a day as needed for muscle spasms metformin 1,000 mg tablet 1,000 mg PO BID Patient Comments: TAKE ONE TABLET BY MOUTH TWICE DAILY docusate sodium 250 mg capsule 250 mg PO BID Patient Comments: TAKE ONE CAPSULE BY MOUTH TWICE DAILY lamotrigine 100 mg tablet 100 mg PO BID Patient Comments: TAKE ONE TABLET BY MOUTH TWICE DAILY finasteride 5 mg tablet 5 mg PO DAILY Patient Comments: TAKE ONE TABLET BY MOUTH ONCE DAILY glipizide 5 mg tablet 5 mg PO BID Patient Comments: TAKE ONE TABLET BY MOUTH TWICE DAILY lamotrigine 150 mg tablet 150 mg PO HS Patient Comments: TAKE ONE TABLET BY MOUTH AT BEDTIME Rx Instructions: 150mg by mouth nightly with the 100mg tablet for seizures tamsulosin 0.4 mg Capsule 0.8 mg PO HS 30 Days Qty: 60 0RF insulin glargine [Lantus Solostar U-100 Insulin] 100 unit/mL (3 mL) Insulin Pen 25 unit SQ HS 30 Days Qty: 7.5 0RF cefdinir 300 mg capsule 300 mg PO BID 4 Days Qty: 8 0RF Referrals Follow up/Referrals: Gustavo Leggett MD [Primary Care Provider] - See instructions Clinical Impressions Clinical Impression: Cellulitis of left leg Instructions Patient Instructions: DI for Laceration Repair Discharge ED Provider: Tracy Kirk General Adult HPI General Chief complaint: Wound/Laceration Stated complaint: cellulitis Time Seen by Provider: 06/04/23 12:37 Mode of Arrival: EMS Source of Information: Patient Limitations: No Limitations Description of Symptoms (Recalled from ER Triage Doc. by RN): 68 yo M presensts to ED with c/o left foot wound. pt was seen by HH and HH nurse noted drainage from the wound dressing. History of Present Illness HPI narrative: Patient is a 68-year-old male with a history of poorly controlled diabetes has had an AKA 2 years ago in the right upper extremity presenting today with left lower extremity cellulitis. States that his foot and ankle were normal in appearance up to 1 week ago when he started having spreading redness of his left lower extremity. He had an Unna boot that was placed by wound management and home health that sees him regularly and they noted worsening redness and drainage coming from his foot that they called pus. No fevers or chills patient otherwise feels okay systemically. No peripheral artery disease that he is aware of. His surgery several years ago from an amputation standpoint was done by Dr. Kirk at [facility]. Related Data Home Medications Medication Instructions Recorded Confirmed aspirin 81 mg tablet,delayed 81 mg PO DAILY Heart Disease 04/20/23 04/20/23 release atorvastatin 40 mg tablet 40 mg PO DAILY High Cholesterol 04/20/23 04/20/23 baclofen 20 mg tablet 20 mg PO DAILYP PRN Muscle Spasms 04/20/23 04/20/23 buspirone 5 mg tablet 5 mg PO TID Mood 04/20/23 04/20/23 docusate sodium 250 mg capsule 250 mg PO BID Constipation 04/20/23 04/20/23 finasteride 5 mg tablet 5 mg PO DAILY BPH 04/20/23 04/20/23 furosemide 40 mg tablet 40 mg PO DAILY Fluid 04/20/23 04/20/23 glipizide 5 mg tablet 5 mg PO BID Diabetes 04/20/23 04/20/23 angelique
[2023-06-04 12:57] LABS: Basophils # 0.1 K/mm3 (0-0.2); Basophils % 0.6 % (0.1-2.0); Eosinophils # 0.7 K/mm3 (0.0-0.4); Eosinophils % 6.7 % (0.1-12.0); Hematocrit 32.8 % (42.0-52.0); Hemoglobin 10.3 g/dL (14.1-18.0); Lymphocytes # 2.1 K/mm3 (0.7-4.5); Lymphocytes % 20.9 % (10-50); Mean Corpuscular HGB Conc 31.4 g/dL (31.8-35.4); Mean Corpuscular Hemoglobin 25.1 pg (27.0-31.2); Mean Corpuscular Volume 79.9 fl (80-94); Mean Platelet Volume 8.7 fl (7.4-10.4); Monocytes # 0.8 K/mm3 (0.1-1.0); Monocytes % 8.4 % (1.7-9.3); Neutrophils # 6.3 K/mm3 (1.8-7.8); Neutrophils % 63.5 % (37.0-80.0); Platelet Count 345 K/mm3 (142-424); White Blood Count 9.9 K/mm3 (4.8-10.8)
[2023-06-04 12:59] LABS: Alanine Aminotransferase 21 U/L (12-78); Albumin Level 3.4 g/dl (3.5-5.0); Albumin/Globulin Ratio 0.8 (1.1-1.8); Alkaline Phosphatase 103 U/L (38-126); Anion Gap 12.8 mEq/L (5-15); Aspartate Amino Transferase 21 U/L (17-59); Blood Urea Nitrogen 29 mg/dl (9-20); Calcium 8.9 mg/dl (8.4-10.2); Carbon Dioxide 25 mmol/L (22.0-30.0); Chloride 106 mmol/L (98-107); Creatinine Clearance Estimated 119 mL/min (50-200); Estimated Glomerular Filt Rate 84 ml/min (>60); GFR (African American) 101 ML/MIN (>60); Globulin 4.1 g/dL (1.3-3.2); Glucose 225 mg/dl (74-100); Potassium 4.8 mmoL/L (3.5-5.1); Sodium 139 mmol/L (136-145); Total Protein,Serum 7.5 g/dl (6.3-8.2)
[2023-06-04 13:00] LABS: Lactic Acid 1.6 mmol/L (0.7-2.1)
[2023-06-04 13:03] LABS: Bilirubin,Total < 0.1 mg/dl (0.2-1.3)
[2023-06-04 13:10] LABS: Activated Partial Thrombo Time 27.3 seconds (22.8-30.6); INR 0.96 (0.9-1.1); Prothrombin Time 10.4 seconds (10.1-12.5)
--- NOTE | 2023-06-04 13:43 | EXP.PHA.CONS ---
Pharmacy Consult Date: 06/04/23 Time: 13:43 Referring provider: DR. JUÁREZ Reason for Consult:: VANCOMYCIN DOSING Allergies Allergy/AdvReac Type Severity Reaction Status Date / Time hydrocodone [From LORTAB] Allergy Unknown NA-NAUSEA/V Verified 04/22/19 20:53 OMITING tramadol AdvReac Unknown Verified 10/18/20 15:39 allergy reaction Home Medications Medication Instructions Recorded Confirmed Type aspirin 81 mg tablet,delayed 81 mg PO DAILY Heart Disease 04/20/23 04/20/23 History release atorvastatin 40 mg tablet 40 mg PO DAILY High Cholesterol 04/20/23 04/20/23 History baclofen 20 mg tablet 20 mg PO DAILYP PRN Muscle Spasms 04/20/23 04/20/23 History buspirone 5 mg tablet 5 mg PO TID Mood 04/20/23 04/20/23 History docusate sodium 250 mg capsule 250 mg PO BID Constipation 04/20/23 04/20/23 History finasteride 5 mg tablet 5 mg PO DAILY BPH 04/20/23 04/20/23 History furosemide 40 mg tablet 40 mg PO DAILY Fluid 04/20/23 04/20/23 History glipizide 5 mg tablet 5 mg PO BID Diabetes 04/20/23 04/20/23 History lamotrigine 100 mg tablet 100 mg PO BID Seizure 04/20/23 04/20/23 History losartan 50 mg tablet 50 mg PO DAILY High Blood Pressure 04/20/23 04/20/23 History metformin 1,000 mg tablet 1,000 mg PO BID Diabetes 04/20/23 04/20/23 History lamotrigine 150 mg tablet 150 mg PO HS Seizures 04/21/23 04/21/23 History cefdinir 300 mg capsule 300 mg PO BID 4 days #8 caps 04/23/23 Rx insulin glargine 100 unit/mL (3 25 unit (0.25 mL) SQ HS 30 days 04/23/23 Rx mL) subcutaneous pen (Lantus #7.5 mL Solostar U-100 Insulin) tamsulosin 0.4 mg capsule 0.8 mg PO HS 30 days #60 caps 04/23/23 Rx New Prescriptions to Start Prescriptions: Height: 1.83 m Weight: 120.202 kg Laboratory Results:: Laboratory Results - last 24 hr 06/04/23 12:36: WBC 9.9, RBC 4.10 L, Hgb 10.3 L, Hct 32.8 L, MCV 79.9 L, MCH 25.1 L, MCHC 31.4 L, RDW 16.0, Plt Count 345, MPV 8.7, Neut % (Auto) 63.5, Lymph % (Auto) 20.9, [place] % (Auto) 8.4, Eos % (Auto) 6.7, Baso % (Auto) 0.6, Neut # (Auto) 6.3, Lymph # (Auto) 2.1, [place] # (Auto) 0.8, Eos # (Auto) 0.7 H, Baso # (Auto) 0.1, PT 10.4, INR 0.96, APTT 27.3, Sodium 139, Potassium 4.8, Chloride 106, Carbon Dioxide 25, Anion Gap 12.8, BUN 29 H, Creatinine 0.90, Estimated Creat Clear 119, Estimated GFR 84, Est GFR ( Amer) 101, Glucose 225 H, Lactate 1.6, Calcium 8.9, Total Bilirubin < 0.1 L, AST 21, ALT 21, Alkaline Phosphatase 103, Total Protein 7.5, Albumin 3.4 L, Globulin 4.1 H, Albumin/Globulin Ratio 0.8 L Assessment and Plan Assessment and plan all Dx Assessment and Plan for all problems:: Pharmacokinetic dosing service Objective: Patient: Floor: Age: 68 yo Serum creatinine: 1 mg/dL Height: 72.0 Inches Weight (kg): 120 Assessment: IBW (kg): 77.60 Dosing wt(kg): 120 Estimated Creatinine clearance (ml/min): 76.5 CRCL method: Cockcroft and Gault using ibw(default). Drug selected: Vancomycin Loading dose (mg): 0 Vd (liters): 96.0 (factor used: 0.8 L/kg) Emir (hr-1): 0.068 Half life (hrs): 10.19 Recommended dose: 1750 mg Interval: 12 hrs Infusion time (hrs): 2.0 Predicted peak (mcg/mL): 30.6 Predicted trough (mcg/mL): 15.50 Total body weight is being used for vancomycin dosing. Recommendations: Give Vancomycin 1750 mg q 12 hrs with an expected Cpeak of 30.6 mcg/ml and an expected Ctrough of 15.50 mcg/ml. ----Vanco only - ignore for aminoglycosides----- CLvanco= 6.53 L/hr AUC 0-24 /MURRAY Data: MURRAY 0.5 mcg/mL: AUC/MURRAY: 1072.0 MURRAY 1.0 mcg/mL: AUC/MURRAY: 536.0 --------- MURRAY 1.5 mcg/mL: AUC/MURRAY: 357.3 MURRAY 2.0 mcg/mL: AUC/MURRAY: 268.0
[2023-06-04 14:22] LABS: Erythrocyte Sedimentation Rate 138 mm/hr (0-20)
--- NOTE | 2023-06-04 15:54 | HMH.PHAINT1 ---
Pharmacy Intervention Comments: MEDICATION RECONCILIATION COMPLETE USING LIST FROM MOST RECENT HOSPITAL DISCHARGE AND EXTERNAL PHARMACY FILL HISTORY.
--- NOTE | 2023-06-04 16:29 | PC.NURSE ---
arrived to floor by stretcher from ED
--- NOTE | 2023-06-04 19:12 | EXP.HP ---
History of Present Illness *Admission Date: 06/04/23 *Reason for visit:: leg redness, drainage *History of present illness: Mr. Pool is a 68 year old male presented to the ED for c/o LLE drainage and redness. Patient describes having home health remove the Unna boots today and he was noted to have purulent type drainage from his toes. Has had continued weeping from numerous punctate lesions on his left lower extremity. Patient has absent sensation in his left leg distal to his knee. PMHX of DM, s/p right AKA, obesity, PAD, HLD, HTN, and seizures. In the ED the patient was noted to have redness and drainage of his left leg. Labs obtained showing normal white cell count. He currently lives alone and has caregivers that are intermittently reliable. Given his social determinants, need for assistance with ADLs, inability to care for his own leg, and need for IV antibiotics, ER requested admission for further management. On arrival to the floor, he is alert and oriented x4. Denies any chest pain, shortness of breath, fever or chills. States he has had an indwelling catheter for the past 2 to 3 weeks since previous admission a little over a month ago. He has also had some worsening of decubitus wounds on his backside. His caregiver who daily helps him get to his wheelchair and back in bed has been unable to assist on a regular basis. He is therefore essentially bedbound most days necessitating care from other people. Has little interest in going into an institution as he lives in a shelter for 2-1/2 years and does not want to return to that setting if at all possible. Feels he can adequately care for himself at home with current assistance. States his mental health is much better. He is not as depressed as when he was in a shelter. However I expressed concern and pointed out that this is second admission in less than 6 weeks for the same type condition. [facility] Disclaimer: The information contained in this section may have been updated after the patient was seen, as this information can be updated by other users. Medical History History of left heart catheterization (LHC) Surgical History H/O Spinal surgery Family History Breast cancer Mother Family history of myocardial infarction Mother Social History Smoking Status: Never smoker alcohol intake: never substance use type: marijuana current occupational status: retired Travel in the last 8 weeks: None household members: family caffeine: No Review of Systems Review of Systems Review of systems (narrative): 14 point review of systems performed, pertinent positives and negatives as per [facility] Meds Home Medications and Allergies Home Medications Medication Instructions Recorded Confirmed Type aspirin 81 mg tablet,delayed 81 mg PO DAILY Heart Disease 04/20/23 06/04/23 History release atorvastatin 40 mg tablet 40 mg PO DAILY High Cholesterol 04/20/23 06/04/23 History baclofen 20 mg tablet 20 mg PO DAILYP PRN Muscle Spasms 04/20/23 06/04/23 History buspirone 5 mg tablet 5 mg PO TID Anxiety 04/20/23 06/04/23 History docusate sodium 250 mg capsule 250 mg PO BID Constipation 04/20/23 06/04/23 History finasteride 5 mg tablet 5 mg PO DAILY PROSTATE 04/20/23 06/04/23 History furosemide 40 mg tablet 40 mg PO DAILY Fluid 04/20/23 06/04/23 History glipizide 5 mg tablet 5 mg PO BID Diabetes 04/20/23 06/04/23 History lamotrigine 100 mg tablet 100 mg PO BID Seizure 04/20/23 06/04/23 History losartan 50 mg tablet 50 mg PO DAILY High Blood Pressure 04/20/23 06/04/23 History metformin 1,000 mg tablet 1,000 mg PO BIDWMEAL Diabetes 04/20/23 06/04/23 History lamotrigine 150 mg tablet 150 mg PO HS Seizures 04/21/23 06/04/23 History amoxicillin 875 mg-potassium 1 tab PO Q12H I
--- NOTE | 2023-06-04 20:50 | DIET.NUTRFU ---
Addendum entered by Nika Antony RD, LD 06/05/23 10:49: Nursing noted open area to right gluteus, multiple small areas to L foot and L knee. Meal intake on diabetic diet is fair to good at 75%. Labs reviewed. Would benefit from extra protein to promotoe healing with add glucerna daily Original Note: RD consulted for low rudolph score, at moderate risk for breakdown. Currently tolerating diabetic diet with fair po intake. Will continue to monitor meal intake
--- NOTE | 2023-06-04 22:36 | PC.WOUNDNOTE ---
LLE L Knee L foot L foot right gluteus
[2023-06-05 04:00] VITALS: BP 141/79; PULSE 110; RESP 18; TEMP 37; O2SAT 95; BMI 36.6
--- NOTE | 2023-06-05 04:41 | PC.NURSE ---
RECEIVED BATH EARLY IN THE SHIFT.
--- NOTE | 2023-06-05 04:51 | PC.NURSE ---
PATIENT HAS PRESSURE AREAS TO BUTTOCKS. PERSISTANTLY TURNING BACK ONTO BACK AFTER TURNED. WILL PLAN TO USE WEDGE. F/C TO BSD, UOP ADEQUATE, CLEAR YELLOW. LEFT HEEL ELEVATED ON PILLOW. HAS BLISTER LIKE AREA ON HEEL. PHOTOS TAKEN OF SKIN ISSUES. NYSTATIN POWDER TO ABDOMINAL AND GROIN SKIN FOLDS.
[2023-06-05 07:15] LABS: C-Reactive Protein 73.5 mg/L (0-4)
[2023-06-05 07:18] VITALS: BP 133/70; PULSE 101; RESP 16; TEMP 37.1; O2SAT 95
--- NOTE | 2023-06-05 08:00 | PC.NURSE ---
COURTESY NOTE: pt provided with fresh ice water. pt had no further requests.
[2023-06-05 08:06] LABS: Basophils % 0.4 % (0.1-2.0); Eosinophils # 0.6 K/mm3 (0.0-0.4); Eosinophils % 5.5 % (0.1-12.0); Hematocrit 31.8 % (42.0-52.0); Hemoglobin 9.9 g/dL (14.1-18.0); Lymphocytes # 1.8 K/mm3 (0.7-4.5); Lymphocytes % 17.3 % (10-50); Mean Corpuscular Hemoglobin 24.8 pg (27.0-31.2); Mean Corpuscular Volume 79.8 fl (80-94); Mean Platelet Volume 8.4 fl (7.4-10.4); Monocytes # 0.8 K/mm3 (0.1-1.0); Monocytes % 7.2 % (1.7-9.3); Neutrophils # 7.3 K/mm3 (1.8-7.8); Neutrophils % 69.5 % (37.0-80.0); Platelet Count 319 K/mm3 (142-424); Red Blood Count 3.98 M/mm3 (4.60-6.20); Red Cell Distribution Width 15.9 % (11.5-17.5); White Blood Count 10.6 K/mm3 (4.8-10.8)
[2023-06-05 08:14] LABS: Chloride 108 mmol/L (98-107)
[2023-06-05 08:15] LABS: Potassium 4.5 mmoL/L (3.5-5.1); Sodium 137 mmol/L (136-145)
[2023-06-05 08:17] LABS: Alanine Aminotransferase 18 U/L (12-78); Aspartate Amino Transferase 23 U/L (17-59); Blood Urea Nitrogen 23 mg/dl (9-20); Creatinine Clearance Estimated 121 mL/min (50-200); Estimated Glomerular Filt Rate 112 ml/min (>60); GFR (African American) 135 ML/MIN (>60)
[2023-06-05 08:18] LABS: Albumin Level 3.1 g/dl (3.5-5.0); Albumin/Globulin Ratio 0.9 (1.1-1.8); Alkaline Phosphatase 82 U/L (38-126); Anion Gap 12.5 mEq/L (5-15); Bilirubin,Total 0.2 mg/dl (0.2-1.3); Calcium 8.3 mg/dl (8.4-10.2); Carbon Dioxide 21 mmol/L (22.0-30.0); Globulin 3.3 g/dL (1.3-3.2); Glucose 205 mg/dl (74-100); Magnesium 1.9 mg/dl (1.6-2.3); Total Protein,Serum 6.4 g/dl (6.3-8.2)
[2023-06-05 10:39] VITALS: BP 102/51; PULSE 89; RESP 16; TEMP 36.9; O2SAT 94
[2023-06-05 10:47] LABS: POC Glucose,Bedside 277 (70-110)
--- NOTE | 2023-06-05 11:05 | EXP.ACUTE.PN ---
Subjective *Date: 06/05/23 *Time: 14:46 Interval history: Patient remained stable overnight. Tolerating p.o. intake. On exam this morning, heel looks more boggy on left foot. Redness about the same. Denies any pain. Afebrile. Hemodynamically stable. Medical Exam Vital signs and Labs for Last 24 Hours: Vital Signs Temp Pulse Pulse Resp BP BP Pulse Ox 06/05/23 10:39 98.5 F 89 16 102/51 L 94 L 06/05/23 07:18 98.7 F 101 H 16 133/70 95 06/05/23 06:24 06/05/23 04:00 98.6 F 110 H 18 141/79 H 95 06/05/23 05:00 06/05/23 03:00 06/05/23 01:00 06/04/23 23:44 98.2 F 103 H 20 142/65 H 97 06/04/23 23:00 06/04/23 21:00 06/04/23 20:00 96 06/04/23 20:00 97.6 F 103 H 18 135/75 96 06/04/23 17:05 98.1 F 103 H 18 149/88 H 97 06/04/23 16:16 98.5 F 95 H 20 126/80 06/04/23 16:03 95 H 126/80 96 06/04/23 15:32 97 H 118/70 97 06/04/23 15:01 100 H 121/63 97 06/04/23 14:31 107 H 123/60 97 06/04/23 14:01 103 H 125/71 97 06/04/23 13:01 93 H 105/59 L 98 06/04/23 11:57 98.4 F 110 H 16 141/70 H 98 O2 Del Method 06/05/23 10:39 Room Air 06/05/23 07:18 Room Air 06/05/23 06:24 Room Air 06/05/23 04:00 Room Air 06/05/23 05:00 Room Air 06/05/23 03:00 Room Air 06/05/23 01:00 Room Air 06/04/23 23:44 Room Air 06/04/23 23:00 Room Air 06/04/23 21:00 Room Air 06/04/23 20:00 Room Air 06/04/23 20:00 Room Air 06/04/23 17:05 Room Air 06/04/23 16:16 Room Air 06/04/23 16:03 Room Air 06/04/23 15:32 Room Air 06/04/23 15:01 Room Air 06/04/23 14:31 Room Air 06/04/23 14:01 Room Air 06/04/23 13:01 06/04/23 11:57 Intake and Output 06/04/23 06/05/23 06/05/23 23:59 07:59 15:59 Intake Total 1620 / 2210 1110 / 1110 Output Total 1500 / 1500 0 / 1500 Balance 1620 / 2210 -390 / -390 0 / -390 Intake: Intake, Oral Amount 120 / 360 660 / 660 Intake, Total IV Amount 1500 / 1850 450 / 450 Cefepime HCl 2 gm In 0.9 % 100 / 100 Sodium Chloride 100 ml @ 200 mls/hr IV Q12H [facility] Rx#:[id number] Vancomycin/Water For Inj (Peg) 350 / 350 1.75 gm In 350 ml @ 175 mls/hr IV 1100,2300 [facility] Rx#:[id number] Output: Output, Urine Amount 1500 / 1500 0 / 1500 Other: Number of Unmeasured Voids 0 0 Weight 122.74 kg 122.74 kg Patient Weight 06/05/23 23:59 Weight 122.74 kg Laboratory Results - last 24 hr 06/04/23 12:36: WBC 9.9, RBC 4.10 L, Hgb 10.3 L, Hct 32.8 L, MCV 79.9 L, MCH 25.1 L, MCHC 31.4 L, RDW 16.0, Plt Count 345, MPV 8.7, Neut % (Auto) 63.5, Lymph % (Auto) 20.9, [place] % (Auto) 8.4, Eos % (Auto) 6.7, Baso % (Auto) 0.6, Neut # (Auto) 6.3, Lymph # (Auto) 2.1, [place] # (Auto) 0.8, Eos # (Auto) 0.7 H, Baso # (Auto) 0.1, ESR 138 H, PT 10.4, INR 0.96, APTT 27.3, Sodium 139, Potassium 4.8, Chloride 106, Carbon Dioxide 25, Anion Gap 12.8, BUN 29 H, Creatinine 0.90, Estimated Creat Clear 119, Estimated GFR 84, Est GFR ( Amer) 101, Glucose 225 H, Lactate 1.6, Calcium 8.9, Total Bilirubin < 0.1 L, AST 21, ALT 21, Alkaline Phosphatase 103, C-Reactive Protein 73.5 H, Total Protein 7.5, Albumin 3.4 L, Globulin 4.1 H, Albumin/Globulin Ratio 0.8 L 06/05/23 06:21: WBC 10.6, RBC 3.98 L, Hgb 9.9 L, Hct 31.8 L, MCV 79.8 L, MCH 24.8 L, MCHC 31.0 L, RDW 15.9, Plt Count 319, MPV 8.4, Neut % (Auto) 69.5, Lymph % (Auto) 17.3, [place] % (Auto) 7.2, Eos % (Auto) 5.5, Baso % (Auto) 0.4, Neut # (Auto) 7.3, Lymph # (Auto) 1.8, [place] # (Auto) 0.8, Eos # (Auto) 0.6 H, Baso # (Auto) 0.0, Sodium 137, Potassium 4.5, Chloride 108 H, Carbon Dioxide 21 L, Anion Gap 12.5, BUN 23 H, Creatinine 0.70 D, Estimated Creat Clear 121, Estimated GFR 112, Est GFR ( Amer) 135 D, Glucose 205 H, Calcium 8.3 L, Magnesium 1.9, Total Bilirubin 0.2, AST 23, ALT 18, Alkaline Phosphatase 82, Total Protein 6.4, Albumin 3.1 L, Globulin 3.3 H, Albumin/Globulin Ratio 0.9 L 06/05/23 10:36: POC Gl
--- NOTE | 2023-06-05 11:33 | CT_ITS ---
PROCEDURE INFORMATION: Exam: CT Left Lower Extremity Without Contrast, Foot Exam date and time: 06/05/2023 12:38 PM Age: 68 years old Clinical indication: Cellulitis; Foot; Left; Additional info: Cellulitis, decub wound foot. TECHNIQUE: Imaging protocol: CT of the left lower extremity without contrast was performed. Exam focused on the foot. Radiation optimization: All CT scans at this facility use at least one of these dose optimization techniques: automated exposure control; mA and/or kV adjustment per patient size (includes targeted exams where dose is matched to clinical indication); or iterative reconstruction. REPORTING DATA: Count of CT and Cardiac NM exams in prior 12 months: This patient has received [address] and 0 known cardiac nuclear medicine studies in the 12 months prior to the current study. COMPARISON: CR XR FOOT LT MIN 3V 03/28/2020 9:51 AM FINDINGS: Bones/joints: There is diffuse mottled appearance of the bones with numerous small radiolucencies likely secondary to osteoporosis. There are no osteolytic, destructive bone changes that would be suggestive of osteomyelitis. No fracture or obvious malalignment detected. No significant degenerative changes. Soft tissues: Diffuse superficial soft tissue swelling most pronounced along the dorsum of the foot, nonspecific and may be secondary to diffuse cellulitis, venous stasis or systemic factors. IMPRESSION: 1. Diffuse osteoporosis. No radiographic evidence of osteomyelitis. 2. Diffuse superficial soft tissue swelling as discussed above.
--- NOTE | 2023-06-05 13:20 | HMH.PTEV ---
Physical Therapy Evaluation Rehab PT IP Evaluation Start: 06/04/23 23:21 Freq: ONCE Status: Active Protocol: Document 06/05/23 12:22 PDESEROUX (Rec: 06/05/23 13:20 PDESEROUX [id number]) Subjective/History History History Pt. is a 68 yoa male who presents to [facility] 2nd floor Inpatient setting w/ c/o acute and constant burning P! of the LLE secondary to Cellulitis. Pt. states his Nurse vocalized pus draining from the LLE foot yesterday( 06/04/23) upon dressing change . Pt. reports his HH Nurse recommended contacting his MD for admittance to the ER to assess the LLE. Pt. arrived to ER via EMS last night(). Pt. reports being admitted to the hospital 1 month ago for LLE Cellulitis. Pt. reports currently living along in a 1-story home w/ 1 step for entry into home. Pt. 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 Pt. reports spending the last 2.5 years in Detention. Pt. reports he has not been ambulatory since the amputation. Pt. reports W/C as mode of transportation. Pt. reports having Nurses and aides regularly throughout the week that assist w/ ADLs. Pt. reports his neighbor is customizing a ramp for the 1 step into the house, reports his nephew had already customized a ramp for the 1 step in his house. PMH includes seizures, HTN, S/P RLE AKA, DM, and Hyperlipidemia. Subjective Subjective Pt. awake and eating lunch whilst supine in a recumbent position in hospital bed after being permitted by pt. to enter into room. Pt. willingly accepted to participate in
--- NOTE | 2023-06-05 13:55 | PC.NURSE ---
COURTESY NOTE: pt provided with fresh ice water. pt had no further requests.
--- NOTE | 2023-06-05 14:20 | PC.NURSE ---
COURTESY NOTE: rounded on pt, he denied any assistance with ADLs at this time.
[2023-06-05 14:26] VITALS: BP 109/52; PULSE 89; RESP 16; TEMP 37.1; O2SAT 96
[2023-06-05 16:19] LABS: POC Glucose,Bedside 281 (70-110)
--- NOTE | 2023-06-05 17:08 | PC.NURSE ---
Pt is A/O x4, currently on RA, Pt seems very pleasant and acceptive of care, Nystatin power has been applied TID to folds for excoriation. Pt is a Q2 turn, and left lower leg has been in an elevated postion this shift. Nurse x2 applied betadine to multiple wounds on Pt skin and added additional dressing, no changes noted to Pt wound or skin condition. Pt glucose levels were 277 @1130 and 281 @1630, Pt has required coverage with insulin. Pt denies pain and offers no complaints at this time.
[2023-06-05 20:00] VITALS: BP 139/80; PULSE 99; RESP 18; TEMP 36.9; O2SAT 96
[2023-06-05 20:50] LABS: POC Glucose,Bedside 240 (70-110)
--- NOTE | 2023-06-05 22:24 | PC.NURSE ---
2100 MEPILEX DRSGS INTACT TO BUTTOCKS. NYSTATIN PWD APPLIED TO GROINS/ABDOMINAL FOLDS. BACTROBAN APPLIED TO SORES ON TOES, HEEL AREA AND CELLULITIS LEFT GOVEA. FOOT ELEVATED ON PILLOWS.
[2023-06-05 23:00] LABS: Vancomycin,Trough 17.4 ug/mL (5.0-10.0)
[2023-06-06] VITALS: BP 131/75; PULSE 95; RESP 18; TEMP 36.8; O2SAT 96
--- NOTE | 2023-06-06 03:06 | PC.NURSE ---
VANC TROUGH DRAWN AT 2200 AND PEAK DRAWN AT 0305 ORDERED.
--- NOTE | 2023-06-06 03:53 | PC.NURSE ---
nightwatch pharmacist Blas consulted with the vanc trough and peak. Trough was 17.4 and peak was 28. instructed no change.
[2023-06-06 04:00] VITALS: BP 137/72; PULSE 97; RESP 18; TEMP 36.9; O2SAT 96; BMI 36.9
[2023-06-06 05:13] LABS: POC Glucose,Bedside 236 (70-110)
--- NOTE | 2023-06-06 05:50 | PC.NURSE ---
RECEIVED BED BATH EARLY IN THIS SHIFT. MEPILEX DRSGS TO BUTTOCKS C/D/I. HEEL PROTECTOR IN USE TO LEFT FOOT, ELEVATED ON PILLOW. UOP GOOD PER F/C, CLEAR YELLOW. CONTINUES TO HAVE DISCHARGE FROM PENIS. CATH CARE PERFORMED. NYSTATIN PWD AND BACTROBAN APPLIED ORDERED. RIGHT AKA STUMP INTACT. NO CHANGES IN VANCOMYCIN DOSING PER NIGHTWATCH PHARMACIST CHRIS. FSBSs REMAIN ELEVATED AND REQUIRING S/S COVERAGE. DENIES PAIN OR DISCOMFORT. NO SEIZURE ACTIVITY NOTED.
[2023-06-06 07:24] VITALS: BP 143/65; PULSE 88; RESP 16; TEMP 36.9; O2SAT 95
[2023-06-06 07:27] LABS: POC Glucose,Bedside 192 (70-110)
[2023-06-06 07:27] LABS: POC Glucose,Bedside 229 (70-110)
[2023-06-06 08:05] LABS: Basophils % 0.5 % (0.1-2.0); Eosinophils # 0.6 K/mm3 (0.0-0.4); Eosinophils % 6.5 % (0.1-12.0); Hematocrit 30.7 % (42.0-52.0); Hemoglobin 9.6 g/dL (14.1-18.0); Lymphocytes % 22.7 % (10-50); Mean Corpuscular HGB Conc 31.3 g/dL (31.8-35.4); Mean Corpuscular Hemoglobin 25.2 pg (27.0-31.2); Mean Corpuscular Volume 80.4 fl (80-94); Mean Platelet Volume 9.2 fl (7.4-10.4); Monocytes # 0.6 K/mm3 (0.1-1.0); Monocytes % 7.3 % (1.7-9.3); Neutrophils # 5.4 K/mm3 (1.8-7.8); Platelet Count 314 K/mm3 (142-424); Red Blood Count 3.82 M/mm3 (4.60-6.20); Red Cell Distribution Width 16.1 % (11.5-17.5); White Blood Count 8.6 K/mm3 (4.8-10.8)
[2023-06-06 08:17] LABS: Alanine Aminotransferase 25 U/L (12-78); Albumin Level 3.1 g/dl (3.5-5.0); Albumin/Globulin Ratio 0.9 (1.1-1.8); Alkaline Phosphatase 83 U/L (38-126); Anion Gap 13.4 mEq/L (5-15); Aspartate Amino Transferase 23 U/L (17-59); Blood Urea Nitrogen 19 mg/dl (9-20); Calcium 8.6 mg/dl (8.4-10.2); Carbon Dioxide 22 mmol/L (22.0-30.0); Chloride 106 mmol/L (98-107); Creatinine Clearance Estimated 122 mL/min (50-200); Estimated Glomerular Filt Rate 96 ml/min (>60); GFR (African American) 116 ML/MIN (>60); Globulin 3.5 g/dL (1.3-3.2); Glucose 252 mg/dl (74-100); Magnesium 1.9 mg/dl (1.6-2.3); Potassium 4.4 mmoL/L (3.5-5.1); Sodium 137 mmol/L (136-145); Total Protein,Serum 6.6 g/dl (6.3-8.2)
[2023-06-06 08:28] LABS: Bilirubin,Total < 0.1 mg/dl (0.2-1.3)
--- NOTE | 2023-06-06 10:04 | EXP.PHA.CONS ---
Pharmacy Consult Date: 06/06/23 Time: 10:06 Referring provider: DR WAHL Reason for Consult:: VANCOMYCIN TROUGH LEVEL OBTAINED. Allergies Allergy/AdvReac Type Severity Reaction Status Date / Time hydrocodone [From LORTAB] Allergy Unknown NA-NAUSEA/V Verified 06/04/23 16:47 OMITING tramadol AdvReac Unknown Verified 06/04/23 16:47 allergy reaction Home Medications Medication Instructions Recorded Confirmed Type aspirin 81 mg tablet,delayed 81 mg PO DAILY Heart Disease 04/20/23 06/04/23 History release atorvastatin 40 mg tablet 40 mg PO DAILY High Cholesterol 04/20/23 06/04/23 History baclofen 20 mg tablet 20 mg PO DAILYP PRN Muscle Spasms 04/20/23 06/04/23 History buspirone 5 mg tablet 5 mg PO TID Anxiety 04/20/23 06/04/23 History docusate sodium 250 mg capsule 250 mg PO BID Constipation 04/20/23 06/04/23 History finasteride 5 mg tablet 5 mg PO DAILY PROSTATE 04/20/23 06/04/23 History furosemide 40 mg tablet 40 mg PO DAILY Fluid 04/20/23 06/04/23 History glipizide 5 mg tablet 5 mg PO BID Diabetes 04/20/23 06/04/23 History lamotrigine 100 mg tablet 100 mg PO BID Seizure 04/20/23 06/04/23 History losartan 50 mg tablet 50 mg PO DAILY High Blood Pressure 04/20/23 06/04/23 History metformin 1,000 mg tablet 1,000 mg PO BIDWMEAL Diabetes 04/20/23 06/04/23 History lamotrigine 150 mg tablet 150 mg PO HS Seizures 04/21/23 06/04/23 History amoxicillin 875 mg-potassium 1 tab PO Q12H Infection 06/04/23 06/04/23 History clavulanate 125 mg tablet fluconazole 100 mg tablet 100 mg PO DAILY Infection 06/04/23 06/04/23 History insulin glargine 100 unit/mL (3 25 unit SQ HS Diabetes 06/04/23 06/04/23 History mL) subcutaneous pen (Lantus Solostar U-100 Insulin) tamsulosin 0.4 mg capsule 0.8 mg PO HS PROSTATE 06/04/23 06/04/23 History New Prescriptions to Start Prescriptions: Height: 1.83 m Weight: 123.7 kg Laboratory Results:: Laboratory Results - last 24 hr 06/04/23 21:10: POC Glucose 192 H 06/05/23 05:29: POC Glucose 229 H 06/05/23 10:36: POC Glucose 277 H 06/05/23 16:11: POC Glucose 281 H 06/05/23 20:39: POC Glucose 240 H 06/05/23 22:10: Vancomycin Trough 17.4 H 06/06/23 03:10: Vancomycin Peak 28.0 06/06/23 05:04: POC Glucose 236 H 06/06/23 07:15: WBC 8.6, RBC 3.82 L, Hgb 9.6 L, Hct 30.7 L, MCV 80.4, MCH 25.2 L, MCHC 31.3 L, RDW 16.1, Plt Count 314, MPV 9.2, Neut % (Auto) 63.0, Lymph % (Auto) 22.7, [place] % (Auto) 7.3, Eos % (Auto) 6.5, Baso % (Auto) 0.5, Neut # (Auto) 5.4, Lymph # (Auto) 2.0, [place] # (Auto) 0.6, Eos # (Auto) 0.6 H, Baso # (Auto) 0.0, Sodium 137, Potassium 4.4, Chloride 106, Carbon Dioxide 22, Anion Gap 13.4, BUN 19, Creatinine 0.80, Estimated Creat Clear 122, Estimated GFR 96, Est GFR ( Amer) 116, Glucose 252 H, Calcium 8.6, Magnesium 1.9, Total Bilirubin < 0.1 L, AST 23, ALT 25 D, Alkaline Phosphatase 83, Total Protein 6.6, Albumin 3.1 L, Globulin 3.5 H, Albumin/Globulin Ratio 0.9 L Medical History: Medical History (Updated 06/05/23 @ 15:03 by Feliciano Wahl MD) History of left heart catheterization (LHC) Assessment and Plan Assessment and plan all Dx Assessment and Plan for all problems:: VANCOMYCIN TROUGH LEVEL OBTAINED. VANCOMYCIN TROUGH LEVEL 17.4 MCG/ML ([id number] 21:10) RECOMMEND CONTINUING CURRENT VANCOMYCIN DOSE OF 1750 MG Q12H.
--- NOTE | 2023-06-06 10:53 | EXP.ACUTE.PN ---
Subjective *Date: 06/06/23 *Time: 10:53 Interval history: On room air overnight with vitals in normal range. Tolerating p.o. intake. Light yellow urine in catheter. Denies shortness of breath or chest pain. Redness marginally better with heel pad in place. Medical Exam Vital signs and Labs for Last 24 Hours: Vital Signs Temp Pulse Resp BP Pulse Ox O2 Del Method 06/06/23 10:33 Room Air 06/06/23 09:00 Room Air 06/06/23 08:00 Room Air 06/06/23 07:24 98.5 F 88 16 143/65 H 95 Room Air 06/06/23 06:09 Room Air 06/06/23 04:00 98.5 F 97 H 18 137/72 96 Room Air 06/06/23 05:00 Room Air 06/06/23 02:48 Room Air 06/06/23 00:00 98.2 F 95 H 18 131/75 96 Room Air 06/06/23 01:00 Room Air 06/05/23 23:00 Room Air 06/05/23 21:00 Room Air 06/05/23 20:00 96 Room Air 06/05/23 20:00 98.5 F 99 H 18 139/80 96 Room Air 06/05/23 18:40 Room Air 06/05/23 16:36 Room Air 06/05/23 14:59 Room Air 06/05/23 14:26 98.7 F 89 16 109/52 L 96 Room Air 06/05/23 12:59 Room Air 06/05/23 11:00 Room Air Intake and Output 06/05/23 06/06/23 06/06/23 23:59 07:59 15:59 Intake Total 480 / 2440 1000 / 1000 Output Total 1400 / 4300 475 / 475 0 / 475 Balance -920 / -1860 525 / 525 0 / 525 Intake: Intake, Oral Amount 480 / 1890 900 / 900 Intake, Total IV Amount 100 / 100 Cefepime HCl 2 gm In 0.9 % 100 / 100 Sodium Chloride 100 ml @ 200 mls/hr IV Q12H [facility] Rx#:[id number] Output: Output, Urine Amount 1400 / 2900 475 / 475 0 / 475 Other: Number of Unmeasured Voids 0 0 0 Number of Bowel Movements 1 Weight 123.7 kg 123.7 kg Patient Weight 06/06/23 23:59 Weight 123.7 kg Laboratory Results - last 24 hr 06/04/23 21:10: POC Glucose 192 H 06/05/23 05:29: POC Glucose 229 H 06/05/23 16:11: POC Glucose 281 H 06/05/23 20:39: POC Glucose 240 H 06/05/23 22:10: Vancomycin Trough 17.4 H 06/06/23 03:10: Vancomycin Peak 28.0 06/06/23 05:04: POC Glucose 236 H 06/06/23 07:15: WBC 8.6, RBC 3.82 L, Hgb 9.6 L, Hct 30.7 L, MCV 80.4, MCH 25.2 L, MCHC 31.3 L, RDW 16.1, Plt Count 314, MPV 9.2, Neut % (Auto) 63.0, Lymph % (Auto) 22.7, [place] % (Auto) 7.3, Eos % (Auto) 6.5, Baso % (Auto) 0.5, Neut # (Auto) 5.4, Lymph # (Auto) 2.0, [place] # (Auto) 0.6, Eos # (Auto) 0.6 H, Baso # (Auto) 0.0, Sodium 137, Potassium 4.4, Chloride 106, Carbon Dioxide 22, Anion Gap 13.4, BUN 19, Creatinine 0.80, Estimated Creat Clear 122, Estimated GFR 96, Est GFR ( Amer) 116, Glucose 252 H, Calcium 8.6, Magnesium 1.9, Total Bilirubin < 0.1 L, AST 23, ALT 25 D, Alkaline Phosphatase 83, Total Protein 6.6, Albumin 3.1 L, Globulin 3.5 H, Albumin/Globulin Ratio 0.9 L I & O for Labs for Last 24 Hours: Intake & Output 06/03/23 06/04/23 06/05/23 06/06/23 23:59 23:59 23:59 23:59 Intake Total 1620 / 2210 1860 / 2440 1000 / 1000 Output Total 4300 / 4300 475 / 475 Balance 1620 / 2210 -2440 / -1860 525 / 525 Weight 122.74 kg 122.74 kg 123.7 kg Constitutional: Present no acute distress, obese, chronically ill appearing and cooperative Head: Present atraumatic and normocephalic ENT: Present normal exam Neck: Present normal inspection Respiratory: Present normal respiratory effort; Absent rhonchi, wheezes or crackles Cardiac: Present Reg Rate and Rhythm GI: Present soft and normal bowel sounds; Absent distention or tenderness Extremities: Present normal inspection and full ROM Comment:: Right [id number] amputation; rednessmarginally better in left LE, no edema, leg wrinkled; boggy heel with loose epidermis Skin: Present intact and erythema (Unna boot in place with no expansion of redness.) Neuro: Present Grossly Intact, alert, awake, oriented x 3 and moves all extremities Assessment and Plan *Assessment and plan (1) Diabetic foot infection: Status: Acute Category: Medical Code(s): E11.628 - Type 2 diabetes mellitus with othe
[2023-06-06 11:01] VITALS: BP 122/55; PULSE 92; RESP 16; TEMP 36.9; O2SAT 97
[2023-06-06 11:29] LABS: POC Glucose,Bedside 178 (70-110)
[2023-06-06 15:02] VITALS: BP 115/49; PULSE 88; RESP 16; TEMP 36.6; O2SAT 96
[2023-06-06 16:33] LABS: POC Glucose,Bedside 182 (70-110)
--- NOTE | 2023-06-06 18:05 | PC.NURSE ---
Pt is A/O x4, currently on RA, Nystatin power has been applied TID to folds for excoriation. Pt is a Q2 turn, and left lower leg has been in an elevated position this shift. no changes noted to Pt wound or skin condition. Pt has required coverage with insulin due to elevated glucose levels. Pt denies pain and offers no complaints at this time.
[2023-06-06 20:00] VITALS: BP 131/67; PULSE 92; RESP 18; TEMP 36.9; O2SAT 95; O2SAT 96
[2023-06-06 20:08] LABS: POC Glucose,Bedside 158 (70-110)
[2023-06-07] VITALS (7 sets, daily range): BP systolic 112–146; BP diastolic 58–85; PULSE 69–106; RESP 16–22; TEMP 36.3–36.9; O2SAT 90–99; BMI 36.9
--- NOTE | 2023-06-07 04:15 | PC.NURSE ---
PATIENT LIKES TO STAY AWAKE LONG INTO THE MORNING HOURS WATCHING TV AND LOOKING AT HIS PHONE. DOES NOT WANT SIDE RAILS PADDED. HAS SEIZURE DO. DRSGS C/D/I TO BUTTOCKS. HEEL PROTECTOR IN USE LEFT FOOT. FOOT ELEVATED ON PILLOW. TURNED AND REPOSITIONED BY STAFF. R AKA STUMP INTACT. C/O ACHING IN LEFT GOVEA AT 2200, RECEIVED TYLENOL 500 MG PO WIRH GOOD RESULTS. CONTINUES TO RECEIVE CEFEPIME AND VANCOMYCIN WITH OUT DIFFICULTY. VSS/AFEBRILE.
[2023-06-07 05:19] LABS: POC Glucose,Bedside 192 (70-110)
[2023-06-07 06:48] LABS: Alanine Aminotransferase 22 U/L (12-78); Albumin Level 3.1 g/dl (3.5-5.0); Albumin/Globulin Ratio 0.9 (1.1-1.8); Alkaline Phosphatase 79 U/L (38-126); Anion Gap 13.1 mEq/L (5-15); Aspartate Amino Transferase 20 U/L (17-59); Blood Urea Nitrogen 19 mg/dl (9-20); Calcium 8.5 mg/dl (8.4-10.2); Carbon Dioxide 21 mmol/L (22.0-30.0); Chloride 108 mmol/L (98-107); Creatinine Clearance Estimated 122 mL/min (50-200); Estimated Glomerular Filt Rate 96 ml/min (>60); GFR (African American) 116 ML/MIN (>60); Globulin 3.6 g/dL (1.3-3.2); Glucose 167 mg/dl (74-100); Potassium 4.1 mmoL/L (3.5-5.1); Sodium 138 mmol/L (136-145); Total Protein,Serum 6.7 g/dl (6.3-8.2)
[2023-06-07 06:56] LABS: Bilirubin,Total < 0.1 mg/dl (0.2-1.3)
[2023-06-07 07:11] LABS: Erythrocyte Sedimentation Rate 137 mm/hr (0-20)
[2023-06-07 07:30] LABS: Magnesium 1.7 mg/dl (1.6-2.3)
--- NOTE | 2023-06-07 09:42 | PC.NURSE ---
0942- [facility] contacted. Spoke with Saritha Cross case # [id number].
--- NOTE | 2023-06-07 10:09 | HMH.OTEV ---
OT Inpatient Evaluation Rehab OT IP Evaluation Start: 06/04/23 23:21 Freq: ONCE Status: Active Protocol: Document 06/07/23 09:48 ESTHER (Rec: 06/07/23 10:09 [facility] [id number]) Rehab OT IP Assessment Subjective History Pt oriented x 3 on arrival. Pt. is a 68 yoa male who presents to [facility] 2nd floor Inpatient setting w/ c/o acute and constant burning P! of the LLE secondary to Cellulitis. Pt. states his HH Nurse vocalized pus draining from the LLE foot (06/04/23) upon dressing change. Pt. reports his HH Nurse recommended contacting his MD for admittance to the ER to assess the LLE. Pt. arrived to ER via EMS on 06/04/23. Pt. reports being admitted to the hospital 1 month ago for LLE Cellulitis. Pt. reports currently living alone in a 1- story home w/ 1 step for entry into home. Pt. 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 Pt. reports spending the last 2.5 years in Prison. Pt. reports he has not been ambulatory since the amputation. Pt. reports W/[employer] as mode of transportation. Pt requires a sliding board to [facility]. Pt. reports having Nurses and aides regularly throughout the week that assist w/ ADLs. Pt. reports his neighbor is customizing a ramp for the 1 step into the house, reports his nephew had already customized a ramp for the 1 step in his house. PMH includes seizures, HTN, S/P RLE AKA, DM, and Hyperlipidemia. Subjective I really haven't been moving around much since I have been ho
--- NOTE | 2023-06-07 10:46 | P.PN_ITS ---
Subjective *Date: 06/07/23 *Time: 10:46 Medical Exam Vital signs and Labs for Last 24 Hours: Vital Signs Temp Pulse Resp BP Pulse Ox O2 Del Method 06/07/23 07:49 98.3 F 98 H 18 137/71 90 L Room Air 06/07/23 06:09 Room Air 06/07/23 05:00 Room Air 06/07/23 04:00 98.2 F 100 H 18 119/70 95 Room Air 06/07/23 02:58 Room Air 06/07/23 00:55 Room Air 06/07/23 00:00 98.2 F 106 H 18 139/79 95 Room Air 06/06/23 23:00 Room Air 06/06/23 21:00 Room Air 06/06/23 20:00 98.4 F 92 H 18 131/67 95 Room Air 06/06/23 20:00 96 Room Air 06/06/23 18:49 Room Air 06/06/23 17:00 Room Air 06/06/23 15:02 97.9 F 88 16 115/49 L 96 Room Air 06/06/23 14:51 Room Air 06/06/23 12:31 Room Air 06/06/23 11:01 98.5 F 92 H 16 122/55 L 97 Room Air Intake and Output 06/06/23 06/07/23 06/07/23 23:59 07:59 15:59 Intake Total 360 / 2550 1400 / 1400 Output Total 0 / 2325 950 / 950 0 / 950 Balance 360 / 225 450 / 450 0 / 450 Intake: Intake, Oral Amount 360 / 2100 950 / 950 Intake, Total IV Amount 450 / 450 Cefepime HCl 2 gm In 0.9 % 100 / 100 Sodium Chloride 100 ml @ 200 mls/hr IV Q12H [facility] Rx#:[id number] Vancomycin/Water For Inj (Peg) 350 / 350 1.75 gm In 350 ml @ 175 mls/hr IV 1100,2300 [facility] Rx#:[id number] Output: Output, Urine Amount 0 / 475 950 / 950 0 / 950 Other: Number of Unmeasured Voids 0 0 0 Weight 123.7 kg Patient Weight 06/07/23 23:59 Weight 123.7 kg Laboratory Results - last 24 hr 06/06/23 11:15: POC Glucose 178 H 06/06/23 16:24: POC Glucose 182 H 06/06/23 19:50: POC Glucose 158 H 06/07/23 05:13: POC Glucose 192 H 06/07/23 06:25: ESR 137 H, Sodium 138, Potassium 4.1, Chloride 108 H, Carbon Dioxide 21 L, Anion Gap 13.1, BUN 19, Creatinine 0.80, Estimated Creat Clear 1 22, Estimated GFR 96, Est GFR ( Amer) 116, Glucose 167 H D, Calcium 8.5, Magnesium 1.7 D, Total Bilirubin < 0.1 L, AST 20, ALT 22, Alkaline Phosphatase 79, Total Protein 6.7, Albumin 3.1 L, Globulin 3.6 H, Albumin/Globulin Ratio 0.9 L I & O for Labs for Last 24 Hours: Intake & Output 06/04/23 06/05/23 06/06/23 06/07/23 23:59 23:59 23:59 23:59 Intake Total 1620 / 2210 1860 / 2440 1720 / 2550 1400 / 1400 Output Total 4300 / 4300 2325 / 2325 950 / 950 Balance 1620 / 2210 -2440 / -1860 -605 / 225 450 / 450 Weight 122.74 kg 122.74 kg 123.7 kg 123.7 kg Microbiology Reports for the Last 24 Hours: Microbiology 06/04/23 12:36 Blood Blood Culture - Preliminary NO GROWTH AFTER 48 HOURS 06/04/23 13:53 Blood Blood Culture - Preliminary NO GROWTH AFTER 48 HOURS The patient's infection will respond to the chosen ABx?: Yes (BLOOD CULTURE NO GROWTH, AFEBRILE) Is the patient receiving the right drug, dose, and route?: Yes Could a more targeted ABx be ordered?: No
--- NOTE | 2023-06-07 11:26 | EXP.ORTH.CON ---
History of Present Illness *Admission Date: 06/04/23 *History of present illness: Mr. Pool is a 68 year old male presented to the ED for c/o LLE drainage and redness. Patient describes having home health remove the Unna boots today and he was noted to have purulent type drainage from his toes. Has had continued weeping from numerous punctate lesions on his left lower extremity. Patient has absent sensation in his left leg distal to his knee. PMHX of DM, s/p right AKA, obesity, PAD, HLD, HTN, and seizures. In the ED the patient was noted to have redness and drainage of his left leg. Labs obtained showing normal white cell count. He currently lives alone and has caregivers that are intermittently reliable. Given his social determinants, need for assistance with ADLs, inability to care for his own leg, and need for IV antibiotics, ER requested admission for further management. Upon admission given antibiotic treatments it was noticed that his left heel had area of induration and swelling. Was consulted in regards to possible treatment options for left foot at this point. He has had CT arthrogram which showed concerning findings in regards to vascular status of the left lower extremity. Cardiology consult pending. I had a discussion with the patient and he is adamant to try to do what ever is necessary to avoid amputation on his left lower extremity secondary to the amputation on his right lower extremity. [facility] Disclaimer: The information contained in this section may have been updated after the patient was seen, as this information can be updated by other users. Medical History History of left heart catheterization (LHC) Surgical History H/O Spinal surgery Family History Breast cancer Mother Family history of myocardial infarction Mother Social History Smoking Status: Never smoker alcohol intake: never substance use type: marijuana current occupational status: retired Travel in the last 8 weeks: None household members: family caffeine: No Meds Home Medications and Allergies Home Medications Medication Instructions Recorded Confirmed Type aspirin 81 mg tablet,delayed 81 mg PO DAILY Heart Disease 04/20/23 06/04/23 History release atorvastatin 40 mg tablet 40 mg PO DAILY High Cholesterol 04/20/23 06/04/23 History baclofen 20 mg tablet 20 mg PO DAILYP PRN Muscle Spasms 04/20/23 06/04/23 History buspirone 5 mg tablet 5 mg PO TID Anxiety 04/20/23 06/04/23 History docusate sodium 250 mg capsule 250 mg PO BID Constipation 04/20/23 06/04/23 History finasteride 5 mg tablet 5 mg PO DAILY PROSTATE 04/20/23 06/04/23 History furosemide 40 mg tablet 40 mg PO DAILY Fluid 04/20/23 06/04/23 History glipizide 5 mg tablet 5 mg PO BID Diabetes 04/20/23 06/04/23 History lamotrigine 100 mg tablet 100 mg PO BID Seizure 04/20/23 06/04/23 History losartan 50 mg tablet 50 mg PO DAILY High Blood Pressure 04/20/23 06/04/23 History metformin 1,000 mg tablet 1,000 mg PO BIDWMEAL Diabetes 04/20/23 06/04/23 History lamotrigine 150 mg tablet 150 mg PO HS Seizures 04/21/23 06/04/23 History amoxicillin 875 mg-potassium 1 tab PO Q12H Infection 06/04/23 06/04/23 History clavulanate 125 mg tablet fluconazole 100 mg tablet 100 mg PO DAILY Infection 06/04/23 06/04/23 History insulin glargine 100 unit/mL (3 25 unit SQ HS Diabetes 06/04/23 06/04/23 History mL) subcutaneous pen (Lantus Solostar U-100 Insulin) tamsulosin 0.4 mg capsule 0.8 mg PO HS PROSTATE 06/04/23 06/04/23 History New Prescriptions to Start Prescriptions: Allergies Allergy/AdvReac Type Severity Reaction Status Date / Time hydrocodone [From LORTAB] Allergy Unknown NA-NAUSEA/V Verified 06/04/23 16:47 OMITING tramadol AdvReac Unknown Verified 06/04/23
--- NOTE | 2023-06-07 11:30 | CARE MANAGER ---
Addendum entered by [facility] 06/10/23 15:08: Patient information has been faxed to [facility] and [facility]: both are in network w/ patient's insurance. Addendum entered by [facility] 06/10/23 14:57: Per patient's PCP (Kiki Mei) [facility] is unable to accept him due to the need for higher level of care. I called and spoke w/ patient: he is agreeable to placement at the following facilities [facility] (does not take his insurance), [facility] (does not take his insurance), [facility], [facility]. Patient is NOT interested in the following facilities: [facility], [facility], [facility] and [facility]. I will continue to follow up w/ [facility] and [facility]. Patient is at home at this time. Addendum entered by [facility] 06/08/23 11:33: [facility] w/ [facility] stated that they will accept this patient and services will start tomorrow or . Addendum entered by [facility] 06/08/23 09:53: Dr Adan and myself did have a discussion w/ this patient regarding plans once medically stable for discharge. Patient is NOT interested in placement once medically stable. Patient is only interested in returning home w/ home health services. [facility] and [facility] are unable to accept this patient. [facility] is in network w/ patient's insurance and information/order will be faxed today. Patient could potentially be ready for discharge home later today or tomorrow. Dr Adan stated that due to limited resources patient will discharge home on PO antibiotics rather than IV. I will continue to follow up w/ MD anastacia and home health agencies. Addendum entered by [facility] 06/08/23 08:26: [facility] w/ [facility] stated they would no longer accept this patient at home due to the need for a higher level of care. I have updated Dr Adan: patient will need SNF vs home IV antibiotics. Original Note: Met with patient this morning to discuss discharge planning needs. Patient states that he has HH services provided by [facility]. Plan at this time is for patient to return home with HH, due to patient refusing any skilled level of care. Patient Choice signed for [facility] and clinical/order will be faxed when patient has been deemed medically stable for discharge.
--- NOTE | 2023-06-07 11:34 | HMH.PTWOUND ---
Rehab Inpt Wound Evaluation Rehab IP Wound Evaluation Start: 06/04/23 23:21 Freq: ONCE Status: Active Protocol: Document 06/07/23 11:21 PHORNE (Rec: 06/07/23 11:34 PHORNE [id number]) Rehab PT Wound Assessment Subjective Subjective 68 yoam adm to [facility] with L LE cellulitis. Hx of DM, R AKA, PAD, HLD, HTN, seizures. He presents with L heel pressure injury, L loer leg cellulitis, and sacral/buttock pressur injuries upon admission from home. Pt uses a w/c for primary mobility, but reports I haven't been in my wheelchair since I was here last time, probably 6 weeks or so. He reports he uses a sliding board for all transfers at baseline. He is adamant to return home once medically stable for d/c. Wound Sacrum Wound Type Pressure Ulcer Is This a Chronic Wound Yes Wound Length (cm) 6.0 Wound Width (cm) 3.0 Wound Depth (cm) 0.2 Wound Bed Appearance Yellow Percentage of Slough (%) 100 Wound Margins Description Well Defined Surrounding Tissue Appearance [place] Wound Drainage Description Serosanguineous Drainage Amount Small Primary Dressing Composite Wound Debridement Method Gauze,Mechanical Wound Debridement Amount of Tissue Minimal Removed Dressing Change Patient Tolerance Tolerated Well Left Heel Wound Type Pressure Ulcer Is This a Chronic Wound Yes Wound Staging Unstageable Query Text:Stage I - Unbroken, red skin, no blanching. Stage II - Skin broken, superficial skin loss involving epidermis alone or also dermis. Partial loss of skin layers. Stage III - Pressure area involves epidermis, dermis and subcutaneous tissue, full thickness skin loss. Stage IV - Pressure area involves epidermis, subcutaneous tissue, bone and other supportive tissue. Full thickness skin loss with extensive destruction of underlying tissue and structures. Wound Length (cm) 4.0 Wound Width (cm) 4.0 Wound Bed Appearance Yellow,Eschar,Necrotic Percentage of Eschar (Black) (%) 50 Percenta
[2023-06-07 12:04] LABS: POC Glucose,Bedside 197 (70-110)
--- NOTE | 2023-06-07 12:58 | EXP.CARD.CON ---
History of Present Illness History of Present Illness Consult date: 06/07/23 Requesting physician: Feliciano Coto Chief complaint: cellulitis of LLE History of present illness: This is a 68-year-old white gentleman who presented to the emergency department with complaints of redness, pain and drainage from his left lower extremity. The patient has a history of right [id number] amputation, PAD, hypertension, hyperlipidemia and diabetes. The patient states that he has been getting home health care for the infection in his left lower extremity with an Unna boot in place. He states that the infection to his left lower extremity just continue to worsen. He states that it is more red and the wound on his left heel continues to worsen. His left lower extremity is wrapped in a dressing so I am unable to evaluate the wound. He does have cellulitis about mcfp to two thirds of his left lower extremity. He denies fever or chills. He denies any chest pain or pressure. He denies any shortness of breath. He states that he does have some edema and drainage noted to the left lower extremity. He denies any nausea, vomiting, diarrhea, PND or orthopnea. Of note the patient was residing in a [facility]it[facility] but removed himself from the penitentiary because of improvement in his mentation and states that he will not to go back to a penitentiary and he is not interested in even considering any type of amputation to the left lower extremity. The patient is currently living alone without much help. He is essentially bedbound if the person who helps take care of him is not available because he is unable to transfer alone. The patient has worsening decubitus ulcers to his backside as well. He is not interested in going back to the penitentiary and feels that he could adequately take care of himself at home with assistance. [facility] Disclaimer: The information contained in this section may have been updated after the patient was seen, as this information can be updated by other users. Medical History (Updated 06/07/23 @ 13:17 by Aleah Higgins APRN) Acute febrile illness Atrial flutter Bilateral cellulitis of lower leg CAD in [place] artery Cellulitis Diabetes mellitus Dystrophia unguium Fatigue Fever History of left heart catheterization (LHC) Infestation by fly larvae Lymphedema of both lower extremities Malaise Obesity with body mass index (BMI) of 30.0 to 39.9 Peripheral vascular disease Renal insufficiency Spinal stenosis of cervical region Spinal stenosis of lumbar region Systemic inflammatory response syndrome (SIRS) Ulcers of both lower extremities Uncontrolled diabetes mellitus Surgical History H/O Spinal surgery Family History Breast cancer Mother Family history of myocardial infarction Mother Social History Smoking Status: Never smoker alcohol intake: never substance use type: marijuana current occupational status: retired Travel in the last 8 weeks: None household members: family caffeine: No Review of Systems Review of Systems Review of systems:: pertinent systems reviewed and negative unless documented below Constitutional Constitutional: Reports system reviewed and no additional complaints, except as documented, Denies chills, Reports fatigue, Denies fever(s) and Reports weakness Eyes Eyes: Reports system reviewed and no additional complaints, except as documented ENT Ears, Nose, Mouth, and Throat: Reports system reviewed and no additional complaints, except as documented *Cardiovascular Cardiovascular: Reports system reviewed and no additional complaints, except as documented *Respiratory Respiratory: Reports system reviewed and no additional complaints, except as documented *Gastrointestinal Gastrointestinal: Reports system reviewed and no addition
--- NOTE | 2023-06-07 14:11 | EXP.ACUTE.PN ---
Subjective *Date: 06/07/23 *Time: 14:11 Interval history: On room air overnight with vitals in normal range. Tolerating p.o. intake. Light yellow urine in catheter. Denies shortness of breath or chest pain. Redness stable, heel wound evolving. Less boggy this morning. PT and OT evaluating on rounds Medical Exam Vital signs and Labs for Last 24 Hours: Vital Signs Temp Pulse Resp BP Pulse Ox O2 Del Method 06/07/23 13:00 Room Air 06/07/23 11:00 Room Air 06/07/23 11:27 98.2 F 101 H 16 146/81 H 97 Room Air 06/07/23 09:00 Room Air 06/07/23 08:00 Room Air 06/07/23 07:49 98.3 F 98 H 18 137/71 90 L Room Air 06/07/23 06:09 Room Air 06/07/23 05:00 Room Air 06/07/23 04:00 98.2 F 100 H 18 119/70 95 Room Air 06/07/23 02:58 Room Air 06/07/23 00:55 Room Air 06/07/23 00:00 98.2 F 106 H 18 139/79 95 Room Air 06/06/23 23:00 Room Air 06/06/23 21:00 Room Air 06/06/23 20:00 98.4 F 92 H 18 131/67 95 Room Air 06/06/23 20:00 96 Room Air 06/06/23 18:49 Room Air 06/06/23 17:00 Room Air 06/06/23 15:02 97.9 F 88 16 115/49 L 96 Room Air 06/06/23 14:51 Room Air Intake and Output 06/06/23 06/07/23 06/07/23 23:59 07:59 15:59 Intake Total 360 / 2550 1400 / 1670 270 / 1670 Output Total 0 / 2325 950 / 1850 900 / 1850 Balance 360 / 225 450 / -180 -630 / -180 Intake: Intake, Oral Amount 360 / 2100 950 / 1220 270 / 1220 Intake, Total IV Amount 450 / 450 Cefepime HCl 2 gm In 0.9 % 100 / 100 Sodium Chloride 100 ml @ 200 mls/hr IV Q12H [facility] Rx#:[id number] Vancomycin/Water For Inj (Peg) 350 / 350 1.75 gm In 350 ml @ 175 mls/hr IV 1100,2300 [facility] Rx#:[id number] Output: Output, Urine Amount 0 / 475 950 / 1850 900 / 1850 Other: Number of Unmeasured Voids 0 0 0 Weight 123.7 kg Patient Weight 06/07/23 23:59 Weight 123.7 kg Laboratory Results - last 24 hr 06/06/23 16:24: POC Glucose 182 H 06/06/23 19:50: POC Glucose 158 H 06/07/23 05:13: POC Glucose 192 H 06/07/23 06:25: ESR 137 H, Sodium 138, Potassium 4.1, Chloride 108 H, Carbon Dioxide 21 L, Anion Gap 13.1, BUN 19, Creatinine 0.80, Estimated Creat Clear 122, Estimated GFR 96, Est GFR ( Amer) 116, Glucose 167 H D, Calcium 8.5, Magnesium 1.7 D, Total Bilirubin < 0.1 L, AST 20, ALT 22, Alkaline Phosphatase 79, Total Protein 6.7, Albumin 3.1 L, Globulin 3.6 H, Albumin/Globulin Ratio 0.9 L 06/07/23 11:50: POC Glucose 197 H I & O for Labs for Last 24 Hours: Intake & Output 06/04/23 06/05/23 06/06/23 06/07/23 23:59 23:59 23:59 23:59 Intake Total 1620 / 2210 1860 / 2440 1720 / 2550 1670 / 1670 Output Total 4300 / 4300 2325 / 2325 1850 / 1850 Balance 1620 / 2210 -2440 / -1860 -605 / 225 -180 / -180 Weight 122.74 kg 122.74 kg 123.7 kg 123.7 kg Microbiology Reports for the Last 24 Hours: Microbiology 06/04/23 12:36 Blood Blood Culture - Preliminary NO GROWTH AFTER 48 HOURS 06/04/23 13:53 Blood Blood Culture - Preliminary NO GROWTH AFTER 48 HOURS Constitutional: Present no acute distress, obese, chronically ill appearing and cooperative Head: Present atraumatic and normocephalic ENT: Present normal exam Neck: Present normal inspection Respiratory: Present normal respiratory effort; Absent rhonchi, wheezes or crackles Cardiac: Present Reg Rate and Rhythm GI: Present soft and normal bowel sounds; Absent distention or tenderness Extremities: Present normal inspection and full ROM Comment:: Right [id number] amputation; redness stable on left lower extremity. No edema. Wrinkling of skin. Heel slightly boggy with evolving eschar in the middle of wound. Pulses not palpable. Skin: Present intact and erythema (Unna boot in place with no expansion of redness.) Neuro: Present Grossly Intact, alert, awake, oriented x 3 and moves all extremities Assessment
[2023-06-07 19:16] LABS: POC Glucose,Bedside 185 (70-110)
[2023-06-07 22:17] LABS: POC Glucose,Bedside 139 (70-110)
[2023-06-08 04:00] VITALS: BP 131/73; PULSE 98; RESP 22; TEMP 36.8; O2SAT 94
[2023-06-08 05:21] LABS: POC Glucose,Bedside 137 (70-110)
[2023-06-08 07:06] LABS: Basophils % 0.4 % (0.1-2.0); Eosinophils # 0.6 K/mm3 (0.0-0.4); Eosinophils % 6.7 % (0.1-12.0); Hematocrit 31.8 % (42.0-52.0); Hemoglobin 10.1 g/dL (14.1-18.0); Lymphocytes % 21.5 % (10-50); Mean Corpuscular HGB Conc 31.7 g/dL (31.8-35.4); Mean Corpuscular Hemoglobin 24.9 pg (27.0-31.2); Mean Corpuscular Volume 78.4 fl (80-94); Monocytes # 0.6 K/mm3 (0.1-1.0); Monocytes % 6.6 % (1.7-9.3); Neutrophils # 6.1 K/mm3 (1.8-7.8); Neutrophils % 64.8 % (37.0-80.0); Platelet Count 309 K/mm3 (142-424); Red Blood Count 4.06 M/mm3 (4.60-6.20); White Blood Count 9.4 K/mm3 (4.8-10.8)
[2023-06-08 07:20] LABS: Alanine Aminotransferase 20 U/L (12-78); Albumin Level 3.3 g/dl (3.5-5.0); Albumin/Globulin Ratio 0.9 (1.1-1.8); Alkaline Phosphatase 85 U/L (38-126); Anion Gap 10.1 mEq/L (5-15); Aspartate Amino Transferase 20 U/L (17-59); Bilirubin,Total 0.2 mg/dl (0.2-1.3); Blood Urea Nitrogen 19 mg/dl (9-20); Calcium 8.7 mg/dl (8.4-10.2); Carbon Dioxide 22 mmol/L (22.0-30.0); Chloride 108 mmol/L (98-107); Creatinine Clearance Estimated 122 mL/min (50-200); Estimated Glomerular Filt Rate 96 ml/min (>60); GFR (African American) 116 ML/MIN (>60); Globulin 3.8 g/dL (1.3-3.2); Glucose 121 mg/dl (74-100); Potassium 4.1 mmoL/L (3.5-5.1); Sodium 136 mmol/L (136-145); Total Protein,Serum 7.1 g/dl (6.3-8.2)
[2023-06-08 07:32] VITALS: BP 129/77; PULSE 95; RESP 18; TEMP 37; O2SAT 100
[2023-06-08 07:54] LABS: Chol/HDL Ratio 4.6 (1-3.5); Cholesterol 151 mg/dl (140-200); HDL Cholesterol 33 mg/dl (40-60); Triglycerides 117 mg/dl (30-150); VLDL Cholesterol 23 mg/dL (0-40)
--- NOTE | 2023-06-08 07:58 | DIET.NUTRFU ---
wound care consulted for unstageable to L heel, 4x4, treatment in place. He is currently on diabetic diet with last A1c 8.9. Intake is good at 75-100% at most meals. He is also ordered glucerna once daily. Renal fxn is WNL, will consult provider to start Prostat AWC. Sx was consulted to review POC in regards to the foot. Cardiac has also been consulted to evaluate vascular condition. RD will continue to follow
[2023-06-08 08:00] VITALS: O2SAT 98
[2023-06-08 08:04] LABS: Direct LDL Cholesterol 86.56 mg/dL (100-129)
[2023-06-08 08:18] LABS: Erythrocyte Sedimentation Rate > 140 mm/hr (0-20)
--- NOTE | 2023-06-08 10:17 | EXP.PHA.PN ---
Subjective *Date: 06/08/23 *Time: 10:17 Medical Exam Vital signs and Labs for Last 24 Hours: Vital Signs Temp Pulse Resp BP Pulse Ox O2 Del Method 06/08/23 09:00 Room Air 06/08/23 07:32 98.6 F 95 H 18 129/77 100 Room Air 06/08/23 06:17 Room Air 06/08/23 04:28 Room Air 06/08/23 03:00 Room Air 06/08/23 04:00 98.3 F 98 H 22 131/73 94 L Room Air 06/08/23 01:00 Room Air 06/07/23 23:00 Room Air 06/07/23 23:47 98.2 F 69 20 112/63 99 Room Air 06/07/23 21:00 Room Air 06/07/23 20:00 Room Air 06/07/23 20:00 97.4 F L 90 22 135/85 96 Room Air 06/07/23 17:00 Room Air 06/07/23 15:00 Room Air 06/07/23 16:00 98.4 F 93 H 18 116/58 L 91 L Room Air 06/07/23 13:00 Room Air 06/07/23 11:00 Room Air 06/07/23 11:27 98.2 F 101 H 16 146/81 H 97 Room Air Intake and Output 06/07/23 06/08/23 06/08/23 23:59 07:59 15:59 Intake Total 690 / 3040 1400 / 1400 Output Total 1300 / 3150 800 / 800 0 / 800 Balance -610 / -110 600 / 600 0 / 600 Intake: Intake, Oral Amount 240 / 1700 960 / 960 Intake, Other Amount 40 / 40 Intake, Total IV Amount 400 / 400 Cefepime HCl 2 gm In 0.9 % 100 / 100 Sodium Chloride 100 ml @ 200 mls/hr IV Q12H [facility] Rx#:[id number] Vancomycin/Water For Inj (Peg) 300 / 300 1.75 gm In 350 ml @ 175 mls/hr IV 1100,2300 [facility] Rx#:[id number] Infusion Intake 450 / 450 Cefepime HCl 2 gm In 0.9 % 100 / 100 Sodium Chloride 100 ml @ 200 mls/hr IV Q12H [facility] Rx#:[id number] Vancomycin/Water For Inj (Peg) 350 / 350 1.75 gm In 350 ml @ 175 mls/hr IV 1100,2300 [facility] Rx#:[id number] Output: Output, Urine Amount 1300 / 3150 800 / 800 0 / 800 Other: Intake, Other Source Saline Solution Number of Unmeasured Voids 0 0 0 Number of Bowel Movements 1 Laboratory Results - last 24 hr 06/07/23 11:50: POC Glucose 197 H 06/07/23 17:00: POC Glucose 185 H 06/07/23 19:57: POC Glucose 139 H 06/08/23 05:06: POC Glucose 137 H 06/08/23 06:49: WBC 9.4, RBC 4.06 L, Hgb 10.1 L, Hct 31.8 L, MCV 78.4 L, MCH 24.9 L, MCHC 31.7 L, RDW 16.0, Plt Count 309, MPV 8.0, Neut % (Auto) 64.8, Lymph % (Auto) 21.5, [place] % (Auto) 6.6, Eos % (Auto) 6.7, Baso % (Auto) 0.4, Neut # (Auto) 6.1, Lymph # (Auto) 2.0, [place] # (Auto) 0.6, Eos # (Auto) 0.6 H, Baso # (Auto) 0.0, ESR > 140 H, Sodium 136, Potassium 4.1, Chloride 108 H, Carbon Dioxide 22, Anion Gap 10.1, BUN 19, Creatinine 0.80, Estimated Creat Clear 122, Estimated GFR 96, Est GFR ( Amer) 116, Glucose 121 H, Calcium 8.7, Total Bilirubin 0.2, AST 20, ALT 20, Alkaline Phosphatase 85, Total Protein 7.1, Albumin 3.3 L, Globulin 3.8 H, Albumin/Globulin Ratio 0.9 L, Triglycerides 117, Cholesterol 151, LDL Cholesterol Direct 86.56 L, VLDL Cholesterol 23, HDL Cholesterol 33 L, Cholesterol/HDL Ratio 4.6 H, Procalcitonin 0.085 I & O for Labs for Last 24 Hours: Intake & Output 06/05/23 06/06/23 06/07/23 06/08/23 23:59 23:59 23:59 23:59 Intake Total 1860 / 2440 1720 / 2550 2360 / 3040 1400 / 1400 Output Total 4300 / 4300 2325 / 2325 3150 / 3150 800 / 800 Balance -2440 / -1860 -605 / 225 -790 / -110 600 / 600 Weight 122.74 kg 123.7 kg 123.7 kg The patient's infection will respond to the chosen ABx?: Yes Is the patient receiving the right drug, dose, and route?: Yes Could a more targeted ABx be ordered?: No (WBC WNL, NO GROWTH IN CX.)
[2023-06-08 10:29] LABS: C-Reactive Protein 12.5 mg/L (0-4)
[2023-06-08 10:32] LABS: POC Glucose,Bedside 162 (70-110)
[2023-06-08 11:02] VITALS: BP 146/81; PULSE 95; RESP 18; TEMP 37; O2SAT 99
--- NOTE | 2023-06-08 12:08 | EXP.CARD.PN ---
Subjective Subjective Date: 06/08/23 Time: 08:30 Principal diagnosis: PAD, LLE cellulitis Interval history: This is a 68-year-old gentleman who presented to the emergency department with complaints of redness, pain and drainage in his left lower extremity. The patient has cellulitis of the left lower extremity. He did have a CT abdomen which showed left lower extremity vascular disease up to 80%. He is still having pain in the left lower extremity where he has wound to his heel with induration. He states that this is a little better than yesterday but still present. He denies any chest pain or pressure. He denies any shortness of breath. He denies any fever, chills, nausea, vomiting, diarrhea, PND orthopnea. The patient does report having some edema to the left lower extremity at times but none today. Exam Data for Last 24 hours Vital signs and Labs for Last 24 Hours: Temp Pulse Resp BP Pulse Ox O2 Del Method 98.6 F 95 H 18 146/81 H 99 Room Air 06/08/23 11:02 06/08/23 11:02 06/08/23 11:02 06/08/23 11:02 06/08/23 11:02 06/08/23 11:02 Laboratory Results - last 24 hr 06/07/23 06:25: C-Reactive Protein 12.5 H D 06/07/23 17:00: POC Glucose 185 H 06/07/23 19:57: POC Glucose 139 H 06/08/23 05:06: POC Glucose 137 H 06/08/23 06:49: WBC 9.4, RBC 4.06 L, Hgb 10.1 L, Hct 31.8 L, MCV 78.4 L, MCH 24.9 L, MCHC 31.7 L, RDW 16.0, Plt Count 309, MPV 8.0, Neut % (Auto) 64.8, Lymph % (Auto) 21.5, [place] % (Auto) 6.6, Eos % (Auto) 6.7, Baso % (Auto) 0.4, Neut # (Auto) 6.1, Lymph # (Auto) 2.0, [place] # (Auto) 0.6, Eos # (Auto) 0.6 H, Baso # (Auto) 0.0, ESR > 140 H, Sodium 136, Potassium 4.1, Chloride 108 H, Carbon Dioxide 22, Anion Gap 10.1, BUN 19, Creatinine 0.80, Estimated Creat Clear 122, Estimated GFR 96, Est GFR ( Amer) 116, Glucose 121 H, Calcium 8.7, Total Bilirubin 0.2, AST 20, ALT 20, Alkaline Phosphatase 85, Total Protein 7.1, Albumin 3.3 L, Globulin 3.8 H, Albumin/Globulin Ratio 0.9 L, Triglycerides 117, Cholesterol 151, LDL Cholesterol Direct 86.56 L, VLDL Cholesterol 23, HDL Cholesterol 33 L, Cholesterol/HDL Ratio 4.6 H, Procalcitonin 0.085 06/08/23 10:16: POC Glucose 162 H 06/08/23 10:38: Vancomycin Trough 28.0 H I & O for Last 24 hours: Intake & Output 06/05/23 06/06/23 06/07/23 06/08/23 23:59 23:59 23:59 23:59 Intake Total 1860 / 2440 1720 / 2550 2360 / 3040 1400 / 1400 Output Total 4300 / 4300 2325 / 2325 3150 / 3150 800 / 800 Balance -2440 / -1860 -605 / 225 -790 / -110 600 / 600 Weight 270 lb 9.526 oz 272 lb 11.389 oz 272 lb 11.389 oz Constitutional Constitutional: no acute distress and obese *Routine HEENT Exam Head: Present normocephalic and atraumatic ENT: Present mucous membranes moist *Routine Neck Exam Neck: Present supple, full ROM and normal carotid upstroke; Absent JVD, carotid bruit or lymphadenopathy *Routine Respiratory Exam Respiratory: Present CTA bilaterally, normal respiratory effort, able to speak in complete sentences and symmetric chest movement *Routine Cardiovascular Exam Cardiovascular: Present RRR, Normal S1 and Normal S2; Absent murmur or gallop *Routine Abdominal Exam Abdominal: Present soft and normoactive bowel sounds; Absent tenderness, distended or organomegaly *Routine Extremities Exam Extremities: Present amputation (R AKA); Absent cyanosis, clubbing or pulses intact *Routine Skin Exam Skin: Present intact, erythema (cellulitis to LLE) and wounds (LLE with dressing) *Routine Neurological Exam Neurological: Present alert and oriented X3 Routine Psychiatric Exam Psychiatric: Present normal affect Progress Note: A&P Assessment and plan (1) PVD (peripheral vascular disease): Status: Acute (2) CAD in [place] artery: Status: Acute (3) Diabetic foot infection: Status: Acute (4) Cellulitis: Status: Acute (5) Diabetes mellitus: Status: Acute (6) Seizure disorder: Status: Chronic (7) HTN (hypertension): Status: Chronic (8) HLD (hype
--- NOTE | 2023-06-08 12:13 | EXP.PN ---
Subjective *Date: 06/08/23 *Time: 12:13 Interval history: The patient is seen and examined today. I am accompanied by Bethany from case management. We discussed his peripheral vascular disease, chronic diabetic wound, previous right lower extremity AKA, and oracle database consultant recommendations. The patient declines transition to penitentiary facility and request to be discharged home with home health. He reports that he does not have resources for IV antibiotics and declines PICC insertion for extended IV antibiotic therapy at home. He adamantly refuses amputation of his left lower extremity if deemed appropriate. He reports that he is tolerating his antibiotic therapy with no adverse events. Nursing staff report that he remains afebrile with stable vital signs and saturating appropriately on room air. His blood cultures identify no growth to date. Cardiology and orthopedic continue to follow. Exam Data for Last 24 hours Vital signs and Labs for Last 24 Hours: Temp Pulse Resp BP Pulse Ox O2 Del Method 98.6 F 95 H 18 146/81 H 99 Room Air 06/08/23 11:02 06/08/23 11:02 06/08/23 11:02 06/08/23 11:02 06/08/23 11:02 06/08/23 11:02 Laboratory Results - last 24 hr 06/07/23 06:25: C-Reactive Protein 12.5 H D 06/07/23 17:00: POC Glucose 185 H 06/07/23 19:57: POC Glucose 139 H 06/08/23 05:06: POC Glucose 137 H 06/08/23 06:49: WBC 9.4, RBC 4.06 L, Hgb 10.1 L, Hct 31.8 L, MCV 78.4 L, MCH 24.9 L, MCHC 31.7 L, RDW 16.0, Plt Count 309, MPV 8.0, Neut % (Auto) 64.8, Lymph % (Auto) 21.5, [place] % (Auto) 6.6, Eos % (Auto) 6.7, Baso % (Auto) 0.4, Neut # (Auto) 6.1, Lymph # (Auto) 2.0, [place] # (Auto) 0.6, Eos # (Auto) 0.6 H, Baso # (Auto) 0.0, ESR > 140 H, Sodium 136, Potassium 4.1, Chloride 108 H, Carbon Dioxide 22, Anion Gap 10.1, BUN 19, Creatinine 0.80, Estimated Creat Clear 122, Estimated GFR 96, Est GFR ( Amer) 116, Glucose 121 H, Calcium 8.7, Total Bilirubin 0.2, AST 20, ALT 20, Alkaline Phosphatase 85, Total Protein 7.1, Albumin 3.3 L, Globulin 3.8 H, Albumin/Globulin Ratio 0.9 L, Triglycerides 117, Cholesterol 151, LDL Cholesterol Direct 86.56 L, VLDL Cholesterol 23, HDL Cholesterol 33 L, Cholesterol/HDL Ratio 4.6 H, Procalcitonin 0.085 06/08/23 10:16: POC Glucose 162 H 06/08/23 10:38: Vancomycin Trough 28.0 H I & O for Last 24 hours: Intake & Output 06/05/23 06/06/23 06/07/23 06/08/23 23:59 23:59 23:59 23:59 Intake Total 1860 / 2440 1720 / 2550 2360 / 3040 1400 / 1400 Output Total 4300 / 4300 2325 / 2325 3150 / 3150 800 / 800 Balance -2440 / -1860 -605 / 225 -790 / -110 600 / 600 Weight 122.74 kg 123.7 kg 123.7 kg Constitutional Constitutional: no acute distress, chronically ill appearing and cooperative *Routine HEENT Exam Head: Present normocephalic and atraumatic Eye: Present EOMI and PERRL ENT: Present mucous membranes moist *Routine Neck Exam Neck: Present supple and trachea midline; Absent lymphadenopathy *Routine Respiratory Exam Respiratory: Present rhonchi, normal respiratory effort and symmetric chest movement *Routine Cardiovascular Exam Cardiovascular: Present RRR, Normal S1 and Normal S2 *Routine Abdominal Exam Abdominal: Present soft and normoactive bowel sounds; Absent tenderness *Routine Extremities Exam Extremities: Present full ROM; Absent edema or pallor Comments: Right AKA, left lower extremity in surgical dressing and Stewart wrap *Routine Skin Exam Skin: Present warm; Absent rash *Routine Neurological Exam Neurological: Present alert, oriented X3, moving all extremities, vision grossly intact, hearing grossly intact and normal speech; Absent sensory deficit or motor deficit Routine Psychiatric Exam Psychiatric: Present normal affect, normal thought process, cooperative, good insight and good judgment Assessment and Plan *Assessment and plan (1) Cellulitis: Status: Acute Qualifiers: Laterality: unspecified laterality Site of cellulitis: extremity Site of cellulitis of extremit
[2023-06-08 12:56] LABS: C-Reactive Protein 12.5 mg/L (0-4)
[2023-06-08 12:57] LABS: Procalcitonin 0.085 ng/mL (0.0-2.0)
--- NOTE | 2023-06-08 13:33 | EXP.DC.SUM ---
General Admission date:: 06/04/23 Discharge date: 06/08/23 HPI HPI HPI: Mr. Pool is a 68 year old male presented to the ED for c/o LLE drainage and redness. Patient describes having home health remove the Unna boots today and he was noted to have purulent type drainage from his toes. Has had continued weeping from numerous punctate lesions on his left lower extremity. Patient has absent sensation in his left leg distal to his knee. PMHX of DM, s/p right AKA, obesity, PAD, HLD, HTN, and seizures. In the ED the patient was noted to have redness and drainage of his left leg. Labs obtained showing normal white cell count. He currently lives alone and has caregivers that are intermittently reliable. Given his social determinants, need for assistance with ADLs, inability to care for his own leg, and need for IV antibiotics, ER requested admission for further management. Hospital Course Hospital Course Hospital Course: The patient was admitted to the telemetry unit with orthopedic and cardiovascular consultations. Blood cultures were acquired that identified no growth today. He was started on broad-spectrum IV antibiotic therapy with wound care consult. Imaging was acquired of his left foot including CT identifying no evidence of osteomyelitis or gas. A CTA with runoffs identified peripheral vascular disease but no osteomyelitis. He tolerated his IV antibiotic therapy well. Labs and inflammatory markers were trended and identified stability. He remained afebrile with stable vital signs and saturated appropriately on room air. Orthopedics recommended no surgical intervention until his peripheral vascular disease improved for optimal wound healing. Cardiovascular services recommended improved infectious process prior to lower extremity intervention. His inflammatory markers including a CRP improved during admission. Case management was consulted for next site of care. Patient declined transition to custodial facility and elected to go home with home health. Problems addressed as follows: Left lower extremity cellulitis Acute on chronic diabetic foot infection Peripheral vascular disease Blood cultures no growth to date Trending labs and inflammatory markers CRP downward trend noted Procalcitonin normal ESR chronically elevated Cardiology consult reviewed Orthopedic consult reviewed Nonweightbearing Wound care ongoing Patient declines PICC line and outpatient IV antibiotic therapy IV vancomycin IV cefepime transitioned to Levaquin and metronidazole orally on discharge Antiplatelet therapy Statin therapy CT foot reviewed with no osteomyelitis CTA lower extremities with peripheral vascular disease and no osteomyelitis Plans for vascular intervention as outpatient discussed Case management assisting with next site of care and patient declines SNF Home health for ongoing wound care, PT OT and custodial Goals of care conversation Diabetes Routine blood sugar monitoring Hemoglobin A1c 8.5% (April 2023) Basal insulin therapy Sliding scale insulin therapy Carbohydrate controlled diet Hypertension Routine blood pressure monitoring ARB therapy Beta-andre therapy BPH Dual alpha-andre therapy Accurate I's and O's Seizure disorder Lamictal therapy Seizure precautions BMI 37 Concerns for OHS/DAMARI undiagnosed Outpatient follow-up with PCP for sleep study Calorie appropriate diet Nutrition education Complicates all aspects of care The patient identified improvement and inquired about discharge home. He declined PICC line for IV antibiotic therapy. He declined transition to custodial facility. I spent 35 minutes in [id number] time with the patient, case management (Bethany) and nursing staff concerning the discharge process. We discussed the admitting diagnoses and hospital course. We discussed identified improvement and the patient's desire to be discharged. We reviewed inpatient studies and imaging. The
--- NOTE | 2023-06-09 14:03 | CARE MANAGER ---
Spoke with patient related to hospital discharge. He states he picked up his medications and are aware of changes. He is aware of follow up appointment and denies any questions or concerns. JESSEE Hunter
== END 2023-06-08 15:27 | disposition home health service (06) ==
LOC: ER 15:11 → 2ND 15:38
PROVIDERS: Family Medicine; Nurse Practitioner Family; Admitting Provider Internal Medicine Adolescent Medicine; Emergency Provider Student in an Organized Health Care Education/Training Program; PCP Internal Medicine Adolescent Medicine; Visit Provider Internal Medicine Adolescent Medicine
DX: E11.69 Type 2 diabetes mellitus with other specified complication; Z79.4 Long term (current) use of insulin; G40.909 Epilepsy, unspecified, not intractable, without status epilepticus; I73.9 Peripheral vascular disease, unspecified; I10 Essential (primary) hypertension; E78.5 Hyperlipidemia, unspecified; E66.9 Obesity, unspecified; E11.628 Type 2 diabetes mellitus with other skin complications; L08.9 Local infection of the skin and subcutaneous tissue, unspecified; L03.116 Cellulitis of left lower limb; E78.2 Mixed hyperlipidemia; F44.4 Conversion disorder with motor symptom or deficit; I25.10 Atherosclerotic heart disease of native coronary artery without angina pectoris; E11.51 Type 2 diabetes mellitus with diabetic peripheral angiopathy without gangrene; I48.92 Unspecified atrial flutter; Z79.899 Other long term (current) drug therapy; Z68.36 Body mass index [BMI] 36.0-36.9, adult; E11.622 Type 2 diabetes mellitus with other skin ulcer; L97.821 Non-pressure chronic ulcer of other part of left lower leg limited to breakdown of skin; M79.605 Pain in left leg
CPT/HCPCS: 36415; 73700; 75635; 80053; 80061; 80202; 82962; 83605; 83735; 84145; 85025; 85610; 85651; 85730; 86140; 87040; 87081; 97110; 97161; 97166; 97530; 99285; G0378; Q9967

== ENCOUNTER → 2023-11-11 11:26 | Outpatient (REF) | payer MEDICARE, SELFPAY ==
[2023-11-11 11:42] LABS: Basophils # 0.1 K/mm3 (0-0.2); Basophils % 0.7 % (0.1-2.0); Eosinophils # 0.4 K/mm3 (0.0-0.4); Eosinophils % 3.3 % (0.1-12.0); Hematocrit 37.4 % (42.0-52.0); Lymphocytes # 2.6 K/mm3 (0.7-4.5); Lymphocytes % 24.7 % (10-50); Mean Corpuscular HGB Conc 32.2 g/dL (31.8-35.4); Mean Corpuscular Hemoglobin 26.6 pg (27.0-31.2); Mean Corpuscular Volume 82.6 fl (80-94); Mean Platelet Volume 9.5 fl (7.4-10.4); Monocytes # 0.8 K/mm3 (0.1-1.0); Monocytes % 7.8 % (1.7-9.3); Neutrophils # 6.7 K/mm3 (1.8-7.8); Neutrophils % 63.5 % (37.0-80.0); Platelet Count 310 K/mm3 (142-424); Red Blood Count 4.53 M/mm3 (4.60-6.20); White Blood Count 10.6 K/mm3 (4.8-10.8)
[2023-11-11 12:04] LABS: Alanine Aminotransferase 24 U/L (12-78); Albumin Level 3.3 g/dl (3.5-5.0); Alkaline Phosphatase 145 U/L (38-126); Aspartate Amino Transferase 23 U/L (17-59); Bilirubin,Total 0.2 mg/dl (0.2-1.3); Blood Urea Nitrogen 28 mg/dl (9-20); Calcium 9.1 mg/dl (8.4-10.2); Carbon Dioxide 22 mmol/L (22.0-30.0); Chloride 109 mmol/L (98-107); Estimated Glomerular Filt Rate 96 ml/min (>60); GFR (African American) 116 ML/MIN (>60); Globulin 3.2 g/dL (1.3-3.2); Glucose 91 mg/dl (74-100); Sodium 140 mmol/L (136-145); Total Protein,Serum 6.5 g/dl (6.3-8.2)
[2023-11-11 12:46] LABS: Erythrocyte Sedimentation Rate 26 mm/hr (0-20)
[2023-11-11 13:09] LABS: Hemoglobin A1C 6.4 % (4.0-6.0)
== END ==
LOC: LAB.DROPOF 11:26
PROVIDERS: Visit Provider Internal Medicine Adolescent Medicine
DX: I10 Essential (primary) hypertension; E11.621 Type 2 diabetes mellitus with foot ulcer; D64.9 Anemia, unspecified; Z79.4 Long term (current) use of insulin
CPT/HCPCS: 80053; 83036; 85025; 85651

== ENCOUNTER 2024-03-03 18:27 | Inpatient (IN) | payer MEDICARE, SELFPAY ==
[2024-03-03 18:27] VITALS: BP 150/77; PULSE 82; RESP 19; TEMP 36.8; O2SAT 96; BMI 36.6
--- NOTE | 2024-03-03 18:33 | PC.NURSE ---
DR JUÁREZ AT BEDSIDE
--- NOTE | 2024-03-03 18:47 | XR_ITS ---
PROCEDURE INFORMATION: Exam: XR Left Tibia and Fibula Exam date and time: 03/03/2024 6:57 PM Age: 69 years old Clinical indication: Swelling, leg or foot; Additional info: Chronic swelling redness TECHNIQUE: Imaging protocol: Radiologic exam of the left tibia and fibula. Views: 2 views. COMPARISON: CR XR FOOT LT MIN 3V 03/03/2024 6:57 PM FINDINGS: Bones/joints: Moderate osteophytosis and degenerative changes involve the left knee, and ankle mortise. No evidence of acute osseous abnormality. Soft tissues: Moderate soft tissue swelling of the lower extremity. IMPRESSION: 1. Moderate soft tissue swelling of the lower extremity. 2. Moderate osteophytosis and degenerative changes involve the left knee, and ankle mortise. 3. No evidence of acute osseous abnormality.
--- NOTE | 2024-03-03 18:47 | ED_ITS ---
Discharge Plan Disposition Patient Disposition: Admitted Prescriptions Prescriptions: No Action tamsulosin 0.4 mg capsule 0.8 mg PO HS insulin glargine [Lantus Solostar U-100 Insulin] 100 unit/mL (3 mL) insulin pen 25 unit SQ HS metoprolol succinate 25 mg Tablet Extended Release 24 Hr 25 mg PO DAILY Qty: 30 0RF clopidogrel [Plavix] 75 mg tablet 75 mg PO DAILY Qty: 30 0RF levofloxacin 750 mg tablet 750 mg PO DAILY Qty: 10 0RF metronidazole 500 mg tablet 500 mg PO TID Qty: 30 0RF atorvastatin 40 mg tablet 80 mg PO DAILY Qty: 60 0RF Patient Comments: TAKE ONE TABLET BY MOUTH ONCE DAILY losartan 50 mg tablet 50 mg PO DAILY Patient Comments: TAKE ONE TABLET BY MOUTH ONCE DAILY furosemide 40 mg tablet 40 mg PO DAILY Patient Comments: TAKE ONE TABLET BY MOUTH ONCE DAILY buspirone 5 mg tablet 5 mg PO TID Patient Comments: TAKE ONE TABLET BY MOUTH THREE TIMES DAILY aspirin 81 mg tablet,delayed release (DR/EC) 81 mg PO DAILY baclofen 20 mg tablet 20 mg PO DAILYP PRN (Reason: Muscle Spasms) Patient Comments: take 1 tab(s) by mouth once a day as needed for muscle spasms metformin 1,000 mg tablet 1,000 mg PO BIDWMEAL Patient Comments: TAKE ONE TABLET BY MOUTH TWICE DAILY docusate sodium 250 mg capsule 250 mg PO BID Patient Comments: TAKE ONE CAPSULE BY MOUTH TWICE DAILY lamotrigine 100 mg tablet 100 mg PO BID Patient Comments: TAKE ONE TABLET BY MOUTH TWICE DAILY finasteride 5 mg tablet 5 mg PO DAILY Patient Comments: TAKE ONE TABLET BY MOUTH ONCE DAILY glipizide 5 mg tablet 5 mg PO BID Patient Comments: TAKE ONE TABLET BY MOUTH TWICE DAILY lamotrigine 150 mg tablet 150 mg PO HS Patient Comments: TAKE ONE TABLET BY MOUTH AT BEDTIME Rx Instructions: 150mg by mouth nightly with the 100mg tablet for seizures Referrals Follow up/Referrals: Gustavo Leggett MD [Primary Care Provider] - See instructions Clinical Impressions Clinical Impression: Cellulitis of left leg, Diabetes, PAD (peripheral artery disease), Chronic wound Instructions Patient Instructions: DI for Skin Abscess Discharge ED Provider: Tracy Kirk General Adult HPI General Chief complaint: Skin/Abscess/Foreign Body Stated complaint: LEFT LEG PAIN Time Seen by Provider: 03/03/24 18:32 History of Present Illness HPI narrative: Patient is a 69-year-old with poorly controlled diabetes 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 States that he is adamant that he does not want any more amputations and does not want to be referred to where his surgeons have been which is at [facility]. He has known peripheral artery disease as well within the last several months had a stent that was placed. He was offered a leg imitation and has refused. His main rationale is that he lives at home has home health but does not want to go to a senior living. He states has been thinking about this since August of this past year and that he is aware that he could get worse get septic and could as a result of this. He is also prepared to at some point soon be admitted to hospice. He would like to be admitted to our hospital for IV antibiotics and understands that we do not have the capabilities such as vascular surgery etc. He denies any fever but has had some systemic signs and symptoms of illness such as nausea. His home health and his neighbor state that his leg is more red than it has been over the last several days. Related Data Home Medications Medication Instructions Recorded Confirmed aspirin 81 mg tablet,delayed 81 mg PO DAILY Heart Disease 04/20/23 06/04/23 release baclofen 20 mg tablet 20 mg PO DAILYP PRN Muscle Spasms 04/20/23 06/04/23 buspirone 5 mg tablet 5 mg PO TID Anxiety 04/20/23 06/04/23 docusate sodium 250 mg capsule 250 mg PO BID Constipation 04/20/23 06/04/23 finasteride 5 mg tablet 5 mg PO DAILY PROSTATE 04/20/23 06/04/23 furosemide 40 mg tablet 40 mg PO DAILY Fluid 04/20/23 06/04/23 glipizide 5 mg tablet 5 mg PO BID Diabetes 04/20/23 06/04/23 lamotrigine 100 mg tablet 100 mg PO BID Seizure 04/20/23 06/04/23 losartan 50 mg tablet 50 mg PO DAILY High Blood Pressure 04/20/23 06/04/23 metformin 1,000 mg tablet 1,000 mg PO BIDWMEAL Diabetes 04/20/23 06/04/23 lamotrigine 150 mg tablet 150 mg PO HS Seizures 04/21/23 06/04/23 insulin glargine 100 unit/mL (3 25 unit SQ HS Diabetes 06/04/23 06/04/23 mL) subcutaneous pen (Lantus Solostar U-100 Insulin) tamsulosin 0.4 mg capsule 0.8 mg PO HS PROSTATE 06/04/23 06/04/23 Previous Rx's Medication Instructions Recorded atorvastatin 40 mg tablet 80 mg (2 x 40 mg) PO DAILY High 06/08/23 Cholesterol #60 tabs clopidogrel 75 mg tablet (Plavix) 75 mg PO DAILY #30 tabs 06/08/23 levofloxacin 750 mg tablet 750 mg PO DAILY #10 tabs 06/08/23 metoprolol succinate 25 mg 25 mg PO DAILY #30 tabs 06/08/23 tablet,extended release 24 hr metronidazole 500 mg tablet 500 mg PO TID #30 tabs 06/08/23 Allergies Allergy/AdvReac Type Severity Reaction Status Date / Time hydrocodone [From LORTAB] Allergy Unknown NA-NAUSEA/V Verified 06/04/23 16:47 OMITING tramadol AdvReac Unknown Verified 06/04/23 16:47 allergy reaction [facility] Disclaimer: The information contained in this section may have been updated after the patient was seen, as this information can be updated by other users. Medical History (Updated 03/03/24 @ 19:53 by Tracy Kirk MD) CAD in [place] artery Acute febrile illness Atrial flutter Bilateral cellulitis of lower leg Cellulitis Diabetes mellitus Dystrophia unguium Fatigue Fever Infestation by fly larvae Lymphedema of both lower extremities Malaise Obesity with body mass index (BMI) of 30.0 to 39.9 Peripheral vascular disease Renal insufficiency Spinal stenosis of cervical region Spinal stenosis of lumbar region Systemic inflammatory response syndrome (SIRS) Ulcers of both lower extremities Uncontrolled diabetes mellitus History of left heart catheterization (LHC) Surgical History H/O Spinal surgery Family History Breast cancer Mother Family history of myocardial infarction Mother Social History Smoking Status: Never smoker alcohol intake: never substance use type: marijuana current occupational status: retired Travel in the last 8 weeks: None household members: family caffeine: No ROS Obtained: Yes All systems reviewed & no additional complaints except as documented Physical Exam General General appearance: alert and in no apparent distress Respiratory Respiratory exam: Present normal lung sounds bilaterally Cardiovascular Cardiovascular exam: Present regular rate and normal rhythm Extremities Exam Extremities exam: Present other (Erythematous and swollen left lower extremity with surgically absent toes wounds are not draining any active purulence no foul-smelling ulcers) Neurological Exam Neurological exam: Present alert and oriented X3 Medical Decision Making Lex Inquiry Pt receiving controlled substance: No Vital Signs: 03/03/24 18:27 Temperature 98.2 F Temperature Source Oral Pulse Rate [Left Radial] 82 Respiratory Rate 19 Blood Pressure [Right Arm] 150/77 H Blood Pressure Mean [Right Arm] 101 02 Sat by Pulse Oximetry 96 Orders (Tests/Meds): ED MEDICATIONS Generic Name Dose Route Start Last Admin Trade Name Freq PRN Reason Stop Dose Admin Vancomycin HCl 2,000 mg/ 500 mls @ 250 mls/hr 03/03/24 19:15 Sodium Chloride IV 03/03/24 21:14 ONCE ONE Miscellaneous 1 each 03/03/24 18:45 Vancomycin Consult Request NOTAPPLIC 04/02/24 18:44 CONSULT PHARMACY DEEPTI Discontinued Medications Generic Name Dose Route Start Last Admin Trade Name Freq PRN Reason Stop Dose Admin Lactated Ringer's 1,000 mls @ 999 mls/hr 03/03/24 18:45 Lactated Ringer's 1000 Ml Bag IV 03/03/24 19:45 .Q1H1M DEEPTI Cefepime HCl 2 gm/ Sodium 100 mls @ 200 mls/hr 03/03/24 18:45 Chloride IV 03/03/24 19:14 ONCE ONE Metronidazole 500 mg in 100 mls @ 100 mls/hr 03/03/24 18:45 Flagyl 500mg/100ml Ivpb IV 03/03/24 19:44 ONCE ONE ORDERS Category Date Time Status Foot XR left minimum 3 views [XR foot LT min 3V] Stat Exams 03/03/24 18:47 Taken Tibia/fibula XR left 2 views [XR tibia fibula LT 2V] Exams 03/03/24 18:47 Taken Stat CBC w/Auto Diff [Complete Blood Count Auto Diff] Stat Lab 03/03/24 18:45 Ordered CMP [Comprehensive Metabolic Panel] Stat Lab 03/03/24 18:45 Ordered CRP [C-Reactive Protein] Stat Lab 03/03/24 18:45 Ordered ESR [Erythrocyte Sedimentation Rate] Stat Lab 03/03/24 18:45 Ordered Lactic Acid Stat Lab 03/03/24 18:45 Ordered Blood Culture Stat Micro 03/03/24 18:50 Ordered Medical Decision Narrative: 69-year-old with peripheral artery disease and poorly controlled diabetes presents today with chronic left lower extremity infection that is worsening. Patient would like to be admitted for IV antibiotics at our hospital would not like to be transferred for surgical intervention he adamantly denies wanting any type of amputation. He understands that he may get worse may get septic and may in fact as a result of this he is ready for hospice if he does not have improvement on IV antibiotics. Reassessment x-rays performed which I first interpreted showed no subcutaneous emphysema there is severe bone loss. Given the fact that the patient is ref using any type of surgical intervention and just wants to try IV antibiotics and is okay with going hospice care sometime soon patient will be admitted here. I spoke with Dr. Abreu who is on-call for hospital medicine. Patient was admitted pending labs which should not change number operator Critical Care Critical Care Time Critical Care Time: No
--- NOTE | 2024-03-03 18:47 | XR_ITS ---
PROCEDURE INFORMATION: Exam: XR Left Foot Exam date and time: 03/03/2024 6:57 PM Age: 69 years old Clinical indication: Swelling, leg or foot; Additional info: Swelling, redness TECHNIQUE: Imaging protocol: Radiologic exam of the left foot. Views: 3 or more views. COMPARISON: CT FOOT LT WO CON 06/05/2023 12:38 PM FINDINGS: Bones/joints: Postsurgical changes compatible with amputation of the 2nd and 3rd toes. Moderate osteophytosis and degenerative changes involve the 1st MTP joint, and midfoot. Soft tissues: Moderate soft tissue swelling of the foot with patchy decreased mineralization which can be seen with complex regional pain syndrome in the appropriate clinical setting. IMPRESSION: 1. Postsurgical changes compatible with amputation of the 2nd and 3rd toes. 2. Moderate osteophytosis and degenerative changes involve the 1st MTP joint, and midfoot. 3. Moderate soft tissue swelling of the foot with patchy decreased mineralization which can be seen with complex regional pain syndrome in the appropriate clinical setting. Soft tissue findings could be related to cellulitis.
--- NOTE | 2024-03-03 19:08 | PC.NURSE ---
XR AT BEDSIDE
--- NOTE | 2024-03-03 19:16 | PC.NURSE ---
ED doctor requested that we check with patient to see where he would prefer to go to, patient is calling family to see where they would prefer to go to
[2024-03-03] MEDS: LACTATED RINGERS 1000ML 1,000 ML 999 ML IV (19:54)
[2024-03-03] MEDS: CEFEPIME HCL 2 GM in 0.9 % SODIUM CHLORIDE 100 ML IV (20:18)
[2024-03-03] MEDS: MORPHINE 4MG/ML SYRINGE 4 MG IV (20:33)
[2024-03-03] MEDS: ONDANSETRON 4MG/2ML VIAL 4 MG IV (20:33)
[2024-03-03 20:36] LABS: Chloride 110 mmol/L (98-107); Potassium 4.9 mmoL/L (3.5-5.1); Sodium 138 mmol/L (136-145)
[2024-03-03 20:38] LABS: Alanine Aminotransferase 21 U/L (12-78); Alkaline Phosphatase 97 U/L (38-126); Anion Gap 13.9 mEq/L (5-15); Aspartate Amino Transferase 30 U/L (17-59); Basophils # 0.1 K/mm3 (0-0.2); Basophils % 0.8 % (0.1-2.0); Bilirubin,Total 0.3 mg/dl (0.2-1.3); Blood Urea Nitrogen 48 mg/dl (9-20); Carbon Dioxide 19 mmol/L (22.0-30.0); Creatinine Clearance Estimated 119 mL/min (50-200); Eosinophils # 0.3 K/mm3 (0.0-0.4); Eosinophils % 3.1 % (0.1-12.0); Estimated Glomerular Filt Rate 74 ml/min (>60); GFR (African American) 89 ML/MIN (>60); Hematocrit 31.9 % (42.0-52.0); Hemoglobin 10.1 g/dL (14.1-18.0); Lactic Acid 0.6 mmol/L (0.7-2.1); Lymphocytes # 1.7 K/mm3 (0.7-4.5); Lymphocytes % 17.5 % (10-50); Mean Corpuscular HGB Conc 31.6 g/dL (31.8-35.4); Mean Corpuscular Hemoglobin 27.2 pg (27.0-31.2); Mean Corpuscular Volume 86.1 fl (80-94); Mean Platelet Volume 8.5 fl (7.4-10.4); Monocytes # 0.6 K/mm3 (0.1-1.0); Monocytes % 6.2 % (1.7-9.3); Neutrophils # 7.1 K/mm3 (1.8-7.8); Neutrophils % 72.5 % (37.0-80.0); Platelet Count 223 K/mm3 (142-424); Red Blood Count 3.71 M/mm3 (4.60-6.20); Red Cell Distribution Width 18.8 % (11.5-17.5); White Blood Count 9.8 K/mm3 (4.8-10.8)
[2024-03-03 20:39] LABS: Albumin Level 3.6 g/dl (3.5-5.0); Calcium 8.9 mg/dl (8.4-10.2); Globulin 3.7 g/dL (1.3-3.2); Glucose 83 mg/dl (74-100); Total Protein,Serum 7.3 g/dl (6.3-8.2)
[2024-03-03 20:44] LABS: C-Reactive Protein 10.1 mg/L (0-4)
[2024-03-03] MEDS: VANCOMYCIN CONSULT REQUEST 1 EACH NOTAPPLIC (21:07)
--- NOTE | 2024-03-03 21:08 | PC.NURSE ---
spoke with Blas from [facility] pharmacy for vanc consult
--- NOTE | 2024-03-03 21:23 | PC.NURSE ---
called report to Gill HOOKS
[2024-03-03 21:24] VITALS: BP 146/72; PULSE 78; RESP 20; TEMP 36.8; O2SAT 95
--- NOTE | 2024-03-03 21:31 | PC.NURSE ---
Patient arrived to floor via stretcher from ED at 21:29.
[2024-03-03 21:37] LABS: Erythrocyte Sedimentation Rate 99 mm/hr (0-20)
[2024-03-03 22:00] VITALS: BP 159/89; PULSE 80; RESP 18; TEMP 36.8; O2SAT 97
[2024-03-03] MEDS: METRONIDAZ/SOD CHL 500 MG/100 ML PIGGYBACK 100 MG IV (22:21)
[2024-03-03] MEDS: VANCOMYCIN HCL 2,000 MG in 0.9 % SODIUM CHLORIDE 500 ML 250 MG IV (23:39)
--- NOTE | 2024-03-03 23:42 | P.HP_ITS ---
History of Present Illness *Admission Date: 03/03/24 *Reason for visit:: Cellulitis left lower extremity and foot *History of present illness: Patient had his right leg amputated below the knee in the distant past. Developed problems with the left foot was seen at [facility] in [place] and had 2 toes amputated. Cellulitis and infection continued in the left extremity he actually stated he was in [facility] for 21 days on IV antibiotics. He did not want to go back to [facility] wanted to be treated here. Also was requesting help to determine to be on comfort care and be able to stay in his own home [facility] Disclaimer: The information contained in this section may have been updated after the patient was seen, as this information can be updated by other users. Medical History (Updated 03/04/24 @ 13:09 by Feliciano Coto MD) Seizure CAD in [place] artery Acute febrile illness Atrial flutter Bilateral cellulitis of lower leg Cellulitis Diabetes mellitus Dystrophia unguium Fatigue Fever Infestation by fly larvae Lymphedema of both lower extremities Malaise Obesity with body mass index (BMI) of 30.0 to 39.9 Peripheral vascular disease Renal insufficiency Spinal stenosis of cervical region Spinal stenosis of lumbar region Systemic inflammatory response syndrome (SIRS) Ulcers of both lower extremities Uncontrolled diabetes mellitus History of left heart catheterization (LHC) Surgical History H/O Spinal surgery Family History Breast cancer Mother Family history of myocardial infarction Mother Social History (Updated 03/04/24 @ 00:03 by Gill Peter RN) Smoking Status: Former smoker tobacco type: cigarettes alcohol intake: never substance use type: marijuana current occupational status: retired and disabled Travel in the last 8 weeks: None household members: family caffeine: No Review of Systems Review of Systems Review of systems:: pertinent systems reviewed and negative unless documented below Constitutional Constitutional: Reports system reviewed and no additional complaints, except as documented, Reports fatigue and Reports weakness Eyes Eyes: Reports system reviewed and no additional complaints, except as documented ENT Ears, Nose, Mouth, and Throat: Reports system reviewed and no additional complaints, except as documented *Cardiovascular Cardiovascular: Reports claudication, Reports leg edema and Reports leg ulcers Comments: Denies cardiac issues *Respiratory Respiratory: Reports system reviewed and no additional complaints, except as documented Comments: Denies current problems with respiration *Gastrointestinal Gastrointestinal: Reports nausea Comments: Patient says he is easily nauseated by some foods even a liquid diet. *Genitourinary Genitourinary: Reports urinary incontinence *Musculoskeletal Musculoskeletal: Reports as per HPI, Reports limited range of motion and Reports muscle weakness Comments: Amputation of right leg below the knee and amputation to toes left foot Integumentary/Breasts Skin/Breast: Reports lesions and Reports non-healing lesions *Neurologic Neurologic: Reports system reviewed and no additional complaints, except as documented and Reports weakness Psychiatric Psychiatric: Reports system reviewed and no additional complaints, except as documented Comments: Patient is very stoic about his condition able to talk freely about his medical problems Endocrine Endocrine: Reports system reviewed and no additional complaints, except as documented, Reports as per HPI and Reports fatigue Hematologic/Lymphatic Hematologic/Lymphatic: Reports system reviewed and no additional complaints, except as documented Allergic/Immunologic Allergic/Immunologic: Reports GI upset with certain foods Meds Home Medications and Allergies Home Medications Medication Instructions Recorded Confirmed Type aspirin 81 mg tablet,delayed 81 mg PO DAILY Heart Disease 04/20/23 03/03/24 History release buspirone 5 mg tablet 5 mg PO TID Anxiety 04/20/23 03/03/24 History docusate sodium 250 mg capsule 250 mg PO BID Constipation 04/20/23 03/03/24 History finasteride 5 mg tablet 5 mg PO DAILY PROSTATE 04/20/23 03/03/24 History furosemide 40 mg tablet 40 mg PO DAILY Fluid 04/20/23 03/03/24 History lamotrigine 100 mg tablet 100 mg PO BID Seizure 04/20/23 03/03/24 History losartan 50 mg tablet 50 mg PO DAILY High Blood Pressure 04/20/23 03/03/24 History lamotrigine 150 mg tablet 150 mg PO HS Seizures 04/21/23 03/03/24 History insulin glargine 100 unit/mL (3 42 unit SQ HS Diabetes 06/04/23 03/03/24 History mL) subcutaneous pen (Lantus Solostar U-100 Insulin) tamsulosin 0.4 mg capsule 0.8 mg PO HS PROSTATE 06/04/23 03/03/24 History clopidogrel 75 mg tablet (Plavix) 75 mg PO DAILY #30 tabs 06/08/23 03/03/24 Rx metoprolol succinate 25 mg 25 mg PO DAILY #30 tabs 06/08/23 03/03/24 Rx tablet,extended release 24 hr atorvastatin 40 mg tablet 40 mg PO DAILY High Cholesterol 03/03/24 03/03/24 History baclofen 10 mg tablet 10 mg PO BID 03/03/24 03/03/24 History ferrous sulfate 325 mg (65 mg 325 mg PO DAILY 03/03/24 03/03/24 History iron) tablet pantoprazole 40 mg tablet,delayed 40 mg PO DAILY 03/03/24 03/03/24 History release New Prescriptions to Start Prescriptions: Allergies Allergy/AdvReac Type Severity Reaction Status Date / Time hydrocodone [From LORTAB] Allergy Unknown NA-NAUSEA/V Verified 06/04/23 16:47 OMITING levetiracetam [From Keppra] Allergy Verified 03/03/24 23:56 tramadol AdvReac Unknown Verified 06/04/23 16:47 allergy reaction Exam Data for Last 24 hours Vital signs and Labs for Last 24 Hours: Temp Pulse Resp BP Pulse Ox O2 Del Method 98.2 F 78 20 146/72 H 96 Room Air 03/03/24 21:24 03/03/24 21:24 03/03/24 21:24 03/03/24 21:24 03/03/24 18:27 03/03/24 21:24 Laboratory Results - last 24 hr 03/03/24 20:10: WBC 9.8, RBC 3.71 L, Hgb 10.1 L, Hct 31.9 L, MCV 86.1, MCH 27.2, MCHC 31.6 L, RDW 18.8 H, Plt Count 223, MPV 8.5, Neut % (Auto) 72.5, Lymph % (Auto) 17.5, [place] % (Auto) 6.2, Eos % (Auto) 3.1, Baso % (Auto) 0.8, Neut # (Auto) 7.1, Lymph # (Auto) 1.7, [place] # (Auto) 0.6, Eos # (Auto) 0.3, Baso # (Auto) 0.1, ESR 99 H, Sodium 138, Potassium 4.9, Chloride 110 H, Carbon Dioxide 19 L, Anion Gap 13.9, BUN 48 H, Creatinine 1.00, Estimated Creat Clear 119, Estimated GFR 74, Est GFR ( Amer) 89, Glucose 83, Lactate 0.6 L, Calcium 8.9, Total Bilirubin 0.3, AST 30, ALT 21, Alkaline Phosphatase 97, C-Reactive Protein 10.1 H, Total Protein 7.3, Albumin 3.6, Globulin 3.7 H, Albumin/Globulin Ratio 1.0 L I & O for Last 24 hours: Intake & Output 02/29/24 03/01/24 03/02/24 03/03/24 23:59 23:59 23:59 23:59 Weight 122.47 kg Radiology Reports for the Last 24 Hours: Besides what is noted in the history no acute bony injuries noted or misalignment, x-ray written reports reviewed and films reviewed Constitutional Constitutional: no acute distress and obese Comments: Very friendly gentleman good historian talks freely about his present condition and is in decision as to his future care. He noted that he wants to not go back to long-term care he has been there many times and he does not like it *Routine HEENT Exam Head: Present normocephalic and atraumatic Eye: Present EOMI and PERRL ENT: Present other *Routine Neck Exam Neck: Present supple and full ROM Routine Chest/Breast/Axilla Exam Comments: Examination of the chest and upper back shows no signs of injury *Routine Respiratory Exam Respiratory: Present normal respiratory effort, able to speak in complete sentences and symmetric chest movement *Routine Cardiovascular Exam Cardiovascular: Present RRR *Routine Abdominal Exam Abdominal: Present soft and normoactive bowel sounds *Routine Rectal Exam Rectal:: other *Routine Genitalia Exam Genitalia:: deferred *Routine Extremities Exam Extremities: Present edema and tenderness Comments: Right leg amputated below the knee stump is healed well. Left leg with multiple areas of weeping and redness edema from mid calf to foot. Area of amputation of the 2 toes of skin remains closed Routine Back/Spine/Pelvis Exam Back/Spine: Present CVA tenderness and paraspinal tenderness Back image: 2 1. *Routine Skin Exam Skin: Present erythema, lesions (Right buttocks cheek area of torn skin, was covered and dressed when arrived at the hospital. Left lower extremity starting approximately mid calf redness with edema) and wounds Comments: Left foot is also edematous you can see where the amputation take place the surgical site is still closed but the foot is swollen red with some with weeping of fluid from the top of the foot. The skin to the lower extremity is slightly pale but is pink, no signs of cyanosis *Routine Neurological Exam Neurological: Present alert, oriented X3, CN II-XII intact, abnormal gait, moving all extremities and normal tone Comments: Patient is nonambulatory but he can move his left leg Routine Psychiatric Exam Psychiatric: Present normal affect and normal thought process Detailed Skin Exam left foot: Type of rash: Present blisters Body image: 2 1. Areas of swelling and clear fluid drainage 2. Area of swelling edema clear fluid drainage 3. Same as noted above 4. Foot itself has edema couple places where there are blisters to 2 toes are missing in the middle 5. Right buttocks has a cut through the skin does not appear to be eroded the skin appears to be staying wet from where he stays on his buttocks wearing a diaper. Left butt cheek intact with same changes in skin color H&P: Result Impressions 1. Peripheral vascular disease secondary to diabetes with nonhealing lower extremity. There is cellulitis at this time Assessment and Plan *Assessment and plan (1) Cellulitis of left leg: Status: Acute Category: Medical Code(s): L03.116 - Cellulitis of left lower limb (2) Diabetes: Status: Acute Category: Medical Code(s): E11.9 - Type 2 diabetes mellitus without complications (3) Chronic wound: Status: Acute Category: Medical Code(s): T14.8XXA - Other injury of unspecified body region, initial encounter (4) PAD (peripheral artery disease): Status: Acute Category: Medical Code(s): I73.9 - Peripheral vascular disease, unspecified (5) Functional paraparesis: Status: Acute Category: Medical Code(s): F44.4 - Conversion disorder with motor symptom or deficit (6) Obesity with body mass index (BMI) of 30.0 to 39.9: Status: Acute Category: Medical Code(s): E66.9 - Obesity, unspecified (7) Diabetic foot infection: Status: Acute Category: Medical Code(s): E11.628 - Type 2 diabetes mellitus with other skin complications; L08.9 - Local infection of the skin and subcutaneous tissue, unspecified (8) Seizure disorder: Status: Chronic Category: Medical Code(s): G40.909 - Epilepsy, unspecified, not intractable, without status epilepticus (9) HTN (hypertension): Status: Chronic Qualifiers: Hypertension type: primary hypertension Qualified Code(s): I10 - Essential (primary) hypertension Category: Medical Code(s): I10 - Essential (primary) hypertension (10) Self-care deficit: Status: Acute Category: Medical Code(s): Z78.9 - Other specified health status Plan 69 year old male presented to the ED for c/o LLE redness. Recently was admitted to [facility] with amputation of 3 toes. Prolonged admission for 21 days with IV antibiotics. Discharged a month ago at the beginning of January. Discussed case with ER physician, necessitating admission for IV antibiotics and further management. I agreed to admit. Patient remains afebrile. Tolerating IV antibiotics. Has mild erythema. Problems addressed as follows: CELLULITIS Diabetic foot infection - White cell count normal at 9.8 on presentation, rning. Chronic anemia with hemoglobin 9.7. ESR 99 on presentation. - Continue cefepime 2g IV q12h and vancomycin IV monitoring for renal toxicity - Blood cultures obtained and pending. -Will consider consulting wound care and podiatry on Wednesday pending response to antibiotics. Patient agreeable to debridement but does not want any amputation. Further management pending evaluation and response to antibiotics. -I have ordered CBC, CMP, magnesium, ESR, CRP for the morning. DM -SSI insulin, FSGS ACHS -A1c pending, last A1c in October controlled less than 7 -continue long-acting insulin glargine 42 units nightly SEIZURE DISORDER PVD HTN HLD -Continue home medications aspirin 81 mg, Plavix 75 mg daily, atorvastatin 40 mg, finasteride 5mg, lamotrigine 150 mg, losartan 50 mg daily, and metoprolol 25 mg daily BPH Incontinence - continue finasteride and tamsulosin 0.8mg QHS - indwelling catheter due to breakdown on sacrum and incontinence OBESITY -complicates all aspects of care FULL CODE DIABETIC DIET PLOV Goals of care: Patient wants to be full code but is interested in being comfort care and is inquired about hospice evaluation. Plan for hospice to see patient in the morning. Rounded on patient after nurse practitioner. Personally examined and interviewed patient. Agree with exam findings and care plan as documented.
[2024-03-04 04:00] VITALS: BP 111/65; PULSE 68; RESP 18; TEMP 36.7; O2SAT 95; BMI 36.0
--- NOTE | 2024-03-04 05:53 | PC.WOUNDNOTE ---
right gluteus, Stage 2 R gluteus, stage 2 Left gluteus, stage 2 LLE Left foot
[2024-03-04] MEDS: METRONIDAZ/SOD CHL 500 MG/100 ML PIGGYBACK 100 MG IV (06:19)
[2024-03-04 06:48] LABS: POC Glucose,Bedside 95 (70-110)
[2024-03-04 07:47] VITALS: BP 152/77; PULSE 82; RESP 16; TEMP 36.4; O2SAT 96
[2024-03-04 08:17] LABS: Basophils % 0.4 % (0.1-2.0); Eosinophils # 0.4 K/mm3 (0.0-0.4); Eosinophils % 5.4 % (0.1-12.0); Hematocrit 30.5 % (42.0-52.0); Hemoglobin 9.7 g/dL (14.1-18.0); Lymphocytes # 1.7 K/mm3 (0.7-4.5); Lymphocytes % 23.4 % (10-50); Mean Corpuscular HGB Conc 31.7 g/dL (31.8-35.4); Mean Corpuscular Hemoglobin 27.3 pg (27.0-31.2); Mean Corpuscular Volume 86.2 fl (80-94); Mean Platelet Volume 8.8 fl (7.4-10.4); Monocytes # 0.5 K/mm3 (0.1-1.0); Monocytes % 6.7 % (1.7-9.3); Neutrophils # 4.6 K/mm3 (1.8-7.8); Platelet Count 228 K/mm3 (142-424); Red Blood Count 3.54 M/mm3 (4.60-6.20); White Blood Count 7.2 K/mm3 (4.8-10.8)
--- NOTE | 2024-03-04 08:30 | P.CONPHA_ITS ---
Pharmacy Consult Date: 03/04/24 Time: 08:30 Referring provider: DR. WAHL Reason for Consult:: VANCOMYCIN DOSING Allergies Allergy/AdvReac Type Severity Reaction Status Date / Time hydrocodone [From LORTAB] Allergy Unknown NA-NAUSEA/V Verified 06/04/23 16:47 OMITING levetiracetam [From Keppra] Allergy Verified 03/03/24 23:56 tramadol AdvReac Unknown Verified 06/04/23 16:47 allergy reaction Home Medications Medication Instructions Recorded Confirmed Type aspirin 81 mg tablet,delayed 81 mg PO DAILY Heart Disease 04/20/23 03/03/24 History release buspirone 5 mg tablet 5 mg PO TID Anxiety 04/20/23 03/03/24 History docusate sodium 250 mg capsule 250 mg PO BID Constipation 04/20/23 03/03/24 History finasteride 5 mg tablet 5 mg PO DAILY PROSTATE 04/20/23 03/03/24 History furosemide 40 mg tablet 40 mg PO DAILY Fluid 04/20/23 03/03/24 History lamotrigine 100 mg tablet 100 mg PO BID Seizure 04/20/23 03/03/24 History losartan 50 mg tablet 50 mg PO DAILY High Blood Pressure 04/20/23 03/03/24 History lamotrigine 150 mg tablet 150 mg PO HS Seizures 04/21/23 03/03/24 History insulin glargine 100 unit/mL (3 42 unit SQ HS Diabetes 06/04/23 03/03/24 History mL) subcutaneous pen (Lantus Solostar U-100 Insulin) tamsulosin 0.4 mg capsule 0.8 mg PO HS PROSTATE 06/04/23 03/03/24 History clopidogrel 75 mg tablet (Plavix) 75 mg PO DAILY #30 tabs 06/08/23 03/03/24 Rx metoprolol succinate 25 mg 25 mg PO DAILY #30 tabs 06/08/23 03/03/24 Rx tablet,extended release 24 hr atorvastatin 40 mg tablet 40 mg PO DAILY High Cholesterol 03/03/24 03/03/24 History baclofen 10 mg tablet 10 mg PO BID 03/03/24 03/03/24 History ferrous sulfate 325 mg (65 mg 325 mg PO DAILY 03/03/24 03/03/24 History iron) tablet pantoprazole 40 mg tablet,delayed 40 mg PO DAILY 03/03/24 03/03/24 History release New Prescriptions to Start Prescriptions: Height: 1.83 m Weight: 120.61 kg Laboratory Results:: Laboratory Results - last 24 hr 03/03/24 20:10: WBC 9.8, RBC 3.71 L, Hgb 10.1 L, Hct 31.9 L, MCV 86.1, MCH 27.2, MCHC 31.6 L, RDW 18.8 H, Plt Count 223, MPV 8.5, Neut % (Auto) 72.5, Lymph % (Auto) 17.5, [place] % (Auto) 6.2, Eos % (Auto) 3.1, Baso % (Auto) 0.8, Neut # (Auto) 7.1, Lymph # (Auto) 1.7, [place] # (Auto) 0.6, Eos # (Auto) 0.3, Baso # (Auto) 0.1, ESR 99 H, Sodium 138, Potassium 4.9, Chloride 110 H, Carbon Dioxide 19 L, Anion Gap 13.9, BUN 48 H, Creatinine 1.00, Estimated Creat Clear 119, Estimated GFR 74, Est GFR ( Amer) 89, Glucose 83, Lactate 0.6 L, Calcium 8.9, Total Bilirubin 0.3, AST 30, ALT 21, Alkaline Phosphatase 97, C-Reactive Protein 10.1 H, Total Protein 7.3, Albumin 3.6, Globulin 3.7 H, Albumin/Globulin Ratio 1.0 L 03/04/24 06:20: POC Glucose 95 Medical History: Medical History (Updated 03/04/24 @ 02:22 by Gill Peter RN) Seizure CAD in [place] artery Acute febrile illness Atrial flutter Bilateral cellulitis of lower leg Cellulitis Diabetes mellitus Dystrophia unguium Fatigue Fever Infestation by fly larvae Lymphedema of both lower extremities Malaise Obesity with body mass index (BMI) of 30.0 to 39.9 Peripheral vascular disease Renal insufficiency Spinal stenosis of cervical region Spinal stenosis of lumbar region Systemic inflammatory response syndrome (SIRS) Ulcers of both lower extremities Uncontrolled diabetes mellitus History of left heart catheterization (LHC) Assessment and Plan Assessment and plan all Dx Assessment and Plan for all problems:: Pharmacokinetic dosing service Objective: Patient: Floor: Age: 69 yo Serum creatinine: 1 mg/dL Height: 72.0 Inches Weight (kg): 120.6 Assessment: IBW (kg): 77.60 Dosing wt(kg): 120.6 Estimated Creatinine clearance (ml/min): 75.4 CRCL method: Cockcroft and Gault using ibw(default). Drug selected: Vancomycin Loading dose (mg): 0 Vd (liters): 102.5 (factor used: 0.85 L/kg) Emir (hr-1): 0.067 Half life (hrs): 10.35 Recommended dose: 2000 mg Interval: 12 hrs Infusion time (hrs): 2.0 Predicted peak (mcg/mL): 33.1 Predicted trough (mcg/mL): 16.94 Total body weight is being used for vancomycin dosing. Recommendations: Give Vancomycin 2000 mg q 12 hrs with an expected Cpeak of 33.1 mcg/ml and an expected Ctrough of 16.94 mcg/ml ----Vanco only - ignore for aminoglycosides----- CLvanco= 6.87 L/hr AUC 0-24 /MURRAY Data: MURARY 0.5 mcg/mL: AUC/MURRAY: 1164.5 MURRAY 1.0 mcg/mL: AUC/MURRAY: 582.2 --------- MURRAY 1.5 mcg/mL: AUC/MURRAY: 388.2 MURRAY 2.0 mcg/mL: AUC/MURRAY: 291.1
[2024-03-04 08:31] LABS: Chloride 113 mmol/L (98-107); Sodium 139 mmol/L (136-145)
[2024-03-04 08:34] LABS: Alanine Aminotransferase 19 U/L (12-78); Albumin Level 2.9 g/dl (3.5-5.0); Albumin/Globulin Ratio 0.9 (1.1-1.8); Alkaline Phosphatase 104 U/L (38-126); Aspartate Amino Transferase 26 U/L (17-59); Blood Urea Nitrogen 37 mg/dl (9-20); Calcium 8.8 mg/dl (8.4-10.2); Carbon Dioxide 21 mmol/L (22.0-30.0); Creatinine Clearance Estimated 117 mL/min (50-200); Estimated Glomerular Filt Rate 83 ml/min (>60); GFR (African American) 101 ML/MIN (>60); Globulin 3.2 g/dL (1.3-3.2); Glucose 77 mg/dl (74-100); Total Protein,Serum 6.1 g/dl (6.3-8.2)
[2024-03-04 08:35] LABS: Magnesium 1.8 mg/dl (1.6-2.3)
[2024-03-04 08:38] LABS: Bilirubin,Total 0.1 mg/dl (0.2-1.3)
[2024-03-04] MEDS: CEFEPIME HCL 2 GM in 0.9 % SODIUM CHLORIDE 100 ML IV ×2 (09:16→20:40)
[2024-03-04] MEDS: IRBESARTAN 75MG TABLET 75 MG PO (09:17)
[2024-03-04] MEDS: ASPIRIN EC 81MG TABLET 81 MG PO (09:17)
[2024-03-04] MEDS: ENOXAPARIN 40MG/0.4ML SYRINGE 40 MG SQ (09:17)
[2024-03-04] MEDS: FINASTERIDE 5MG TABLET 5 MG PO (09:18)
[2024-03-04] MEDS: ATORVASTATIN 40MG TABLET 40 MG PO (09:18)
[2024-03-04] MEDS: FUROSEMIDE 40 MG TABLET PO (09:18)
[2024-03-04] MEDS: lamoTRIgine 100MG TABLET 100 MG PO (09:18)
[2024-03-04] MEDS: DOCUSATE SODIUM 250MG CAPSULE 250 MG PO ×2 (09:18→20:41)
[2024-03-04] MEDS: FERROUS SULFATE 325MG TABLET 325 MG PO (09:18)
[2024-03-04] MEDS: METOPROLOL SUCCINATE XL 25MG TABLET 25 MG PO (09:18)
[2024-03-04] MEDS: BUSPIRONE HCL 5 MG TABLET PO ×3 (09:19→20:41)
[2024-03-04] MEDS: CLOPIDOGREL 75MG TAB 75 MG PO (09:19)
[2024-03-04] MEDS: PANTOPRAZOLE 40MG TABLET 40 MG PO (09:19)
[2024-03-04] MEDS: BACLOFEN 10MG TABLET 10 MG PO ×2 (09:19→20:40)
[2024-03-04] MEDS: VANCOMYCIN HCL 2,000 MG in 0.9 % SODIUM CHLORIDE 250 ML 125 MG IV ×2 (11:48→22:51)
--- NOTE | 2024-03-04 13:05 | P.PN_ITS ---
Subjective *Date: 03/04/24 *Time: 13:05 Interval history: Patient baseline function this morning. Afebrile overnight. On room air. Has no feeling in his left leg. Bandage removed on rounds and sutures removed from surgery back in December. Scant pus with removal of sutures. Mild erythema of distal foot and erythema of left anterior burrell. Extensive discussion with patient, he is open to mild debridement if necessary but does not want any further amputation. Refuses any consideration for amputation of leg if necessary. Hospice to see patient today to talk about options. States he wants hospice to help just keep him comfortable. Open to antibiotics. Medical Exam Vital signs and Labs for Last 24 Hours: Vital Signs Temp Pulse Pulse Resp BP BP Pulse Ox 03/04/24 11:00 03/04/24 09:00 03/04/24 08:00 03/04/24 07:47 97.6 F 82 16 152/77 H 96 03/04/24 06:44 03/04/24 05:00 03/04/24 04:00 98.1 F 68 18 111/65 95 03/04/24 03:00 03/04/24 01:00 03/03/24 23:00 03/03/24 22:00 98.3 F 80 18 159/89 H 97 03/03/24 21:50 03/03/24 21:24 98.2 F 78 20 146/72 H 03/03/24 18:27 98.2 F 82 19 150/77 H 96 O2 Del Method 03/04/24 11:00 Room Air 03/04/24 09:00 Room Air 03/04/24 08:00 Room Air 03/04/24 07:47 Room Air 03/04/24 06:44 Room Air 03/04/24 05:00 Room Air 03/04/24 04:00 Room Air 03/04/24 03:00 Room Air 03/04/24 01:00 Room Air 03/03/24 23:00 Room Air 03/03/24 22:00 03/03/24 21:50 Room Air 03/03/24 21:24 Room Air 03/03/24 18:27 Intake and Output 03/03/24 03/04/24 03/04/24 23:59 07:59 15:59 Intake Total 1680 / 1680 Output Total 1725 / 2075 350 / 2075 Balance -45 / -395 -350 / -395 Intake: Intake, Oral Amount 0 / 0 Intake, Total IV Amount 1680 / 1680 Cefepime HCl 2 gm In 0.9 % 100 / 100 Sodium Chloride 100 ml @ 200 mls/hr IV ONCE ONE Rx#:[id number] Lactated Ringers 1000ML 1,000 980 / 980 ml @ 999 mls/hr IV .Q1H1M DEEPTI Rx#:[id number] Metronidaz/Sod Chl 500 mg In 100 / 100 100 ml @ 100 mls/hr IV ONCE ONE Rx#:[id number] Vancomycin HCl 2,000 mg In 0.9 500 / 500 % Sodium Chloride 500 ml @ 250 mls/hr IV ONCE ONE Rx#:[id number] Output: Output, Urine Amount 1724 Other: Number of Unmeasured Voids 0 0 Weight 122.47 kg 120.61 kg 120.61 kg Patient Weight 03/04/24 23:59 Weight 120.61 kg Laboratory Results - last 24 hr 03/03/24 20:10: WBC 9.8, RBC 3.71 L, Hgb 10.1 L, Hct 31.9 L, MCV 86.1, MCH 27.2, MCHC 31.6 L, RDW 18.8 H, Plt Count 223, MPV 8.5, Neut % (Auto) 72.5, Lymph % (Auto) 17.5, [place] % (Auto) 6.2, Eos % (Auto) 3.1, Baso % (Auto) 0.8, Neut # (Auto) 7.1, Lymph # (Auto) 1.7, [place] # (Auto) 0.6, Eos # (Auto) 0.3, Baso # (Auto) 0.1, ESR 99 H, Sodium 138, Potassium 4.9, Chloride 110 H, Carbon Dioxide 19 L, Anion Gap 13.9, BUN 48 H, Creatinine 1.00, Estimated Creat Clear 119, Estimated GFR 74, Est GFR ( Amer) 89, Glucose 83, Lactate 0.6 L, Calcium 8.9, Total Bilirubin 0.3, AST 30, ALT 21, Alkaline Phosphatase 97, C-Reactive Protein 10.1 H, Total Protein 7.3, Albumin 3.6, Globulin 3.7 H, Albumin/Globulin Ratio 1.0 L 03/04/24 06:20: WBC 7.2 D, RBC 3.54 L, Hgb 9.7 L, Hct 30.5 L, MCV 86.2, MCH 27.3, MCHC 31.7 L, RDW 19.0 H, Plt Count 228, MPV 8.8, Neut % (Auto) 64.0, Lymph % (Auto) 23.4, [place] % (Auto) 6.7, Eos % (Auto) 5.4, Baso % (Auto) 0.4, Neut # (Auto) 4.6, Lymph # (Auto) 1.7, [place] # (Auto) 0.5, Eos # (Auto) 0.4, Baso # (Auto) 0.0, Sodium 139, Potassium 4.0, Chloride 113 H, Carbon Dioxide 21 L, Anion Gap 9.0, BUN 37 H, Creatinine 0.90, Estimated Creat Clear 117, Estimated GFR 83, Est GFR ( Amer) 101, Glucose 77, POC Glucose 95, Calcium 8.8, Magnesium 1.8, Total Bilirubin 0.1 L, AST 26, ALT 19, Alkaline Phosphatase 104, Total Protein 6.1 L, Albumin 2.9 L D, Globulin 3.2, Albumin/Globulin Ratio 0.9 L I & O for Labs for Last 24 Hours: Intake & Output 03/01/24 03/02/24 03/03/24 03/04/24 23:59 23:59 23:59 23:59 Intake Total 1680 / 1680 Output Total 2074 / 2074 Balance -395 / -395 Weight 122.47 kg 120.61 kg Constitutional: Present no acute distress, obese, chronically ill appearing and cooperative Head: Present atraumatic and normocephalic ENT: Present normal exam Neck: Present normal inspection Respiratory: Present normal respiratory effort; Absent rhonchi, wheezes or crackles Cardiac: Present Reg Rate and Rhythm GI: Present soft and normal bowel sounds; Absent distention or tenderness Extremities: Present normal inspection and full ROM Comment:: Right vhpni-aez-[id number] amputation; redness stable on left lower extremity. No edema. Wrinkling of skin. Heel slightly boggy with evolving eschar in the middle of wound. Pulses not palpable. Skin: Present intact, erythema (Mild erythema of left anterior burrell. Erythema of the distal dorsum of foot. Mild weeping of ulcers on left leg), dry (Flaky skin on left lower extremity) and pallor Neuro: Present Grossly Intact, alert, awake, oriented x 3 and moves all extremities Comment:: Absent sensation in left foot Assessment and Plan *Assessment and plan (1) Cellulitis of left leg: Status: Acute Category: Medical Code(s): L03.116 - Cellulitis of left lower limb (2) Chronic wound: Status: Acute Category: Medical Code(s): T14.8XXA - Other injury of unspecified body region, initial encounter (3) PAD (peripheral artery disease): Status: Acute Category: Medical Code(s): I73.9 - Peripheral vascular disease, unspecified (4) Diabetes: Status: Acute Qualifiers: Diabetes mellitus type: type 2 Diabetes mellitus [employer] insulin use: with intermodal customer service use Diabetes mellitus complication status: with circulatory complication Diabetes mellitus complication detail: with peripheral angiopathy without gangrene Qualified Code(s): E11.51 - Type 2 diabetes mellitus with diabetic peripheral angiopathy without gangrene; Z79.4 - long term (current) use of insulin Category: Medical Code(s): E11.9 - Type 2 diabetes mellitus without complications (5) Functional paraparesis: Status: Acute Category: Medical Code(s): F44.4 - Conversion disorder with motor symptom or deficit (6) Diabetic foot infection: Status: Acute Category: Medical Code(s): E11.628 - Type 2 diabetes mellitus with other skin complications; L08.9 - Local infection of the skin and subcutaneous tissue, unspecified (7) Seizure disorder: Status: Chronic Category: Medical Code(s): G40.909 - Epilepsy, unspecified, not intractable, without status epilepticus (8) HTN (hypertension): Status: Chronic Qualifiers: Hypertension type: primary hypertension Qualified Code(s): I10 - Essential (primary) hypertension Category: Medical Code(s): I10 - Essential (primary) hypertension (9) Self-care deficit: Status: Acute Category: Medical Code(s): Z78.9 - Other specified health status (10) Obesity (BMI 30-39.9): Status: Chronic Category: Medical Code(s): E66.9 - Obesity, unspecified (11) Lumbar spinal stenosis: Status: Acute Qualifiers: Neurogenic claudication status: unspecified Qualified Code(s): M48.061 - Spinal stenosis, lumbar region without neurogenic claudication Category: Medical Code(s): M48.061 - Spinal stenosis, lumbar region without neurogenic claudication Plan 69 year old male presented to the ED for c/o LLE redness. Recently was admitted to [facility] with amputation of 3 toes. Prolonged admission for 21 days with IV antibiotics. Discharged a month ago at the beginning of January. Discussed case with ER physician, necessitating admission for IV antibiotics and further management. Medicine agreed to admit. Patient remains afebrile. Tolerating IV antibiotics. Dressing exchanged today. Still has mild erythema. Goals of care discussions today. Problems addressed as follows: CELLULITIS Diabetic foot infection - White cell count normal at 9.8 on presentation, 7.2 this morning. Chronic anemia with hemoglobin 9.7. ESR 99 on presentation. - Continue cefepime 2g IV q12h and vancomycin IV monitoring for renal toxicity - Blood cultures obtained and pending. -Will consider consulting wound care and podiatry on Wednesday pending response to antibiotics. Patient agreeable to debridement but does not want any amputation. Further management pending evaluation and response to antibiotics. -I have ordered CBC, CMP, magnesium, ESR, CRP for the morning. DM -SSI insulin, FSGS ACHS -A1c pending, last A1c in October controlled less than 7 -continue long-acting insulin glargine 42 units nightly SEIZURE DISORDER PVD HTN HLD -Continue home medications aspirin 81 mg, Plavix 75 mg daily, atorvastatin 40 mg, finasteride 5mg, lamotrigine 150 mg, losartan 50 mg daily, and metoprolol 25 mg daily -Recent stenting of left lower extremity, awaiting records from [facility] to review BPH Incontinence - continue finasteride and tamsulosin 0.8mg QHS - indwelling catheter due to breakdown on sacrum and incontinence OBESITY -complicates all aspects of care FULL CODE DIABETIC DIET PLOV
[2024-03-04 14:05] LABS: Hemoglobin A1C 6.3 % (4.0-6.0)
[2024-03-04] MEDS: NYSTATIN TOPICAL POWDER 30GM TP ×3 (15:08→20:43)
[2024-03-04] MEDS: GABAPENTIN 100MG CAPSULE 200 MG PO ×2 (15:09→20:41)
[2024-03-04 15:54] VITALS: BP 121/83; PULSE 79; RESP 14; TEMP 36.6; O2SAT 95
[2024-03-04 16:45] LABS: POC Glucose,Bedside 151 (70-110)
--- NOTE | 2024-03-04 18:04 | PC.NURSE ---
pt has done well this shift. dsg to lt foot changed by leisa ruiz. amandeep w/i jorge.
[2024-03-04] MEDS: ONDANSETRON 4MG/2ML VIAL 4 MG IV (19:53)
[2024-03-04 20:00] VITALS: BP 128/70; PULSE 72; RESP 17; TEMP 36.7; O2SAT 95
[2024-03-04 20:38] LABS: POC Glucose,Bedside 170 (70-110)
[2024-03-04] MEDS: INSULIN GLARGINE 100 UNITS/ML 3ML FLEXPEN 42 UNIT SQ (20:41)
[2024-03-04] MEDS: lamoTRIgine 100MG TABLET 250 MG PO (20:43)
[2024-03-04] MEDS: TAMSULOSIN 0.4MG CAPSULE 0.800000000000000044 MG PO (20:44)
[2024-03-05 04:00] VITALS: BP 128/60; PULSE 72; RESP 18; TEMP 37.1; O2SAT 95; BMI 36.0
[2024-03-05 05:54] LABS: POC Glucose,Bedside 127 (70-110)
--- NOTE | 2024-03-05 06:02 | PC.NURSE ---
Patient is alert and oriented x4. Patient has a right below-knee amputation; the lower part of his left leg has been wrapped with jeffery banding that has been clean, dry, and intact thus far. Patient has two stage 2 pressure ulcers on his bottom; the left buttock has a small and circular open ulcer that has not been draining. The right buttock has a significant stage 2 ulcer and is covered with 4x4 and a clear tegaderm dressing. The dressing is clean, dry, and intact. The patient's bottom and scrotum has redness. Nystatin powder was applied after the patient's bed bath. No drainage or bleeding has been noted from either wound sites, and his affected extremity at this time. He also has small and scattered yellow bruises on his abdomen. At the beginning of the shift, the patient reported having nausea. He received Zofran 4mg IV at 1952 and reported full relief of nausea at 2022. He has not had further complaints of nausea at this time. Patient's heart sounds are normal and his lung sounds were clear. His bowel sounds were active in all four quadrants. Moderate swelling was noticed and palpated through his wrap on his left leg. Patient is bedbound and has rested well throughout the shift. The patient has an external male catheter in place due to incontinence and his immobility. He has not had a bowel movement during this shift. I emptied 925mL of urine at around midnight from his catheter canister. His urine is a pale yellow, clear, and had no odor. Patient is an ACHS fingerstick; his reading for 2100 was 170mg/dL and his reading at around 0530 was 127mg/dL. The patient refused his Lispro insulin for 0900, but received Glargine insulin per NOV. Patient did not receive Lispro for 0600 due to the contraindication of the bedside glucose reading. Patient has slept comfortably throughout the night. Snoring from the patient was periodically heard. Patient has not had any further complaints or acute changes at this time. Patient has home medication here and has gotten home health. Wound eval/hospice consult and case management consult needs action. Call light is within reach.
--- NOTE | 2024-03-05 07:14 | P.PN_ITS ---
Subjective *Date: 03/05/24 *Time: 11:58 Interval history: Patient did well overnight and remains afebrile. Erythema stable on exam this morning. Stable on room air. Tolerating IV antibiotics. No nausea or vomiting. Medical Exam Vital signs and Labs for Last 24 Hours: Vital Signs Temp Pulse Resp BP Pulse Ox O2 Del Method 03/05/24 06:48 Room Air 03/05/24 04:46 Room Air 03/05/24 04:00 98.7 F 72 18 128/60 95 Room Air 03/05/24 02:59 Room Air 03/05/24 00:46 Room Air 03/04/24 23:00 Room Air 03/04/24 21:00 Room Air 03/04/24 20:00 72 95 Room Air 03/04/24 20:00 98.1 F 72 17 128/70 95 Room Air 03/04/24 18:21 Room Air 03/04/24 17:00 Room Air 03/04/24 15:54 97.8 F 79 14 121/83 95 Room Air 03/04/24 15:00 Room Air 03/04/24 13:00 Room Air 03/04/24 11:00 Room Air 03/04/24 09:00 Room Air 03/04/24 08:00 Room Air 03/04/24 07:47 97.6 F 82 16 152/77 H 96 Room Air Intake and Output 03/04/24 03/04/24 03/05/24 15:59 23:59 07:59 Intake Total 600 / 3207 540 / 3207 387 / 387 Output Total 1400 / 4625 1500 / 4625 700 / 700 Balance -800 / -1418 -960 / -1418 -313 / -313 Intake: Intake, Oral Amount 600 / 1260 540 / 1260 120 / 120 Intake, Total IV Amount 267 / 267 Cefepime HCl 2 gm In 0.9 % 100 / 100 Sodium Chloride 100 ml @ 200 mls/hr IV Q12H DEEPTI Rx#:[id number] Vancomycin HCl 2,000 mg In 0.9 167 / 167 % Sodium Chloride 250 ml @ 125 mls/hr IV Q12H DEEPTI Rx#:[id number] Output: Output, Urine Amount 1400 / 4625 1500 / 4625 700 / 700 Other: Number of Unmeasured Voids 0 0 0 Weight 120.61 kg 120.61 kg Patient Weight 03/05/24 23:59 Weight 120.61 kg Laboratory Results - last 24 hr 03/04/24 06:20: WBC 7.2 D, RBC 3.54 L, Hgb 9.7 L, Hct 30.5 L, MCV 86.2, MCH 27.3, MCHC 31.7 L, RDW 19.0 H, Plt Count 228, MPV 8.8, Neut % (Auto) 64.0, Lymph % (Auto) 23.4, [place] % (Auto) 6.7, Eos % (Auto) 5.4, Baso % (Auto) 0.4, Neut # (Auto) 4.6, Lymph # (Auto) 1.7, [place] # (Auto) 0.5, Eos # (Auto) 0.4, Baso # (Auto) 0.0, Sodium 139, Potassium 4.0, Chloride 113 H, Carbon Dioxide 21 L, Anion Gap 9.0, BUN 37 H, Creatinine 0.90, Estimated Creat Clear 117, Estimated GFR 83, Est GFR ( Amer) 101, Glucose 77, Hemoglobin A1c 6.3 H, Calcium 8.8, Magnesium 1.8, Total Bilirubin 0.1 L, AST 26, ALT 19, Alkaline Phosphatase 104, Total Protein 6.1 L, Albumin 2.9 L D, Globulin 3.2, Albumin/Globulin Ratio 0.9 L 03/04/24 16:18: POC Glucose 151 H 03/04/24 20:27: POC Glucose 170 H 03/05/24 05:42: POC Glucose 127 H I & O for Labs for Last 24 Hours: Intake & Output 03/02/24 03/03/24 03/04/24 03/05/24 23:59 23:59 23:59 23:59 Intake Total 2820 / 3207 387 / 387 Output Total 4625 / 4625 700 / 700 Balance -1805 / -1418 -313 / -313 Weight 122.47 kg 120.61 kg 120.61 kg Microbiology Reports for the Last 24 Hours: Microbiology 03/03/24 20:20 Blood Blood Culture - Preliminary NO GROWTH AFTER 24 HOURS 03/03/24 20:10 Blood Blood Culture - Preliminary NO GROWTH AFTER 24 HOURS Constitutional: Present no acute distress, obese, chronically ill appearing and cooperative Head: Present atraumatic and normocephalic ENT: Present normal exam Neck: Present normal inspection Respiratory: Present normal respiratory effort; Absent rhonchi, wheezes or crackles Cardiac: Present Reg Rate and Rhythm GI: Present soft and normal bowel sounds; Absent distention or tenderness Extremities: Present normal inspection and full ROM Comment:: Right [id number] amputation; redness with slight interval improvement. No edema. Wrinkling of skin. Wound distal left foot with very scant purulent discharge. Slight warmth. Redness stable if not slightly retracted Skin: Present intact, erythema (Mild erythema of left anterior burrell. Erythema of the distal dorsum of foot. No weeping today), dry (Flaky skin on left lower extremity) and pallor Neuro: Present Grossly Intact, alert, awake, oriented x 3 and moves all extremities Comment:: Absent sensation in left foot Assessment and Plan *Assessment and plan (1) Cellulitis of left leg: Status: Acute Category: Medical Code(s): L03.116 - Cellulitis of left lower limb (2) Chronic wound: Status: Acute Category: Medical Code(s): T14.8XXA - Other injury of unspecified body region, initial encounter (3) PAD (peripheral artery disease): Status: Acute Category: Medical Code(s): I73.9 - Peripheral vascular disease, unspecified (4) Diabetes: Status: Acute Qualifiers: Diabetes mellitus type: type 2 Diabetes mellitus [facility] insulin use: with joint terminal attack controller use Diabetes mellitus complication status: with circulatory complication Diabetes mellitus complication detail: with peripheral angiopathy without gangrene Qualified Code(s): E11.51 - Type 2 diabetes mellitus with diabetic peripheral angiopathy without gangrene; Z79.4 - assisted (current) use of insulin Category: Medical Code(s): E11.9 - Type 2 diabetes mellitus without complications (5) Functional paraparesis: Status: Acute Category: Medical Code(s): F44.4 - Conversion disorder with motor symptom or deficit (6) Diabetic foot infection: Status: Acute Category: Medical Code(s): E11.628 - Type 2 diabetes mellitus with other skin complications; L08.9 - Local infection of the skin and subcutaneous tissue, unspecified (7) Seizure disorder: Status: Chronic Category: Medical Code(s): G40.909 - Epilepsy, unspecified, not intractable, without status epilepticus (8) HTN (hypertension): Status: Chronic Qualifiers: Hypertension type: primary hypertension Qualified Code(s): I10 - Es sential (primary) hypertension Category: Medical Code(s): I10 - Essential (primary) hypertension (9) Self-care deficit: Status: Acute Category: Medical Code(s): Z78.9 - Other specified health status (10) Obesity (BMI 30-39.9): Status: Chronic Category: Medical Code(s): E66.9 - Obesity, unspecified (11) Lumbar spinal stenosis: Status: Acute Qualifiers: Neurogenic claudication status: unspecified Qualified Code(s): M48.061 - Spinal stenosis, lumbar region without neurogenic claudication Category: Medical Code(s): M48.061 - Spinal stenosis, lumbar region without neurogenic claudication Plan 69 year old male presented to the ED for c/o LLE redness. Recently was admitted to [facility] with amputation of 3 toes. Prolonged admission for 21 days with IV antibiotics. Discharged a month ago at the beginning of January. Discussed case with ER physician, necessitating admission for IV antibiotics and further management. Medicine agreed to admit. Patient remains afebrile. Tolerating IV antibiotics. Dressing changed today. Erythema the same if not slightly better. Continue goals of care discussions. Podiatry consult for the morning. CT of left foot pending. Problems addressed as follows: CELLULITIS Diabetic foot infection - White cell count normal at 8, Chronic anemia with hemoglobin 10, CRP 17.4. ESR 127 -Will broaden to meropenem, was on meropenem at [facility] recently. Improved coverage for Pseudomonas. Continue vancomycin IV monitoring for renal toxicity - Blood cultures obtained and pending. -Podiatry consult placed for the morning. Wound care consult for the morning. CT of left foot pending to evaluate for osteomyelitis of the distal metatarsals for treatment planning -I have ordered CBC, CMP, magnesium for the morning. DM -SSI insulin, FSGS ACHS -A1c 6.3, well-controlled. continue long-acting insulin glargine 42 units nightly SEIZURE DISORDER PVD HTN HLD -Continue home medications aspirin 81 mg, Plavix 75 mg daily, atorvastatin 40 mg, finasteride 5mg, lamotrigine 150 mg, losartan 50 mg daily, and metoprolol 25 mg daily -Recent stenting of left lower extremity, awaiting records from [facility] to review BPH Incontinence - continue finasteride and tamsulosin 0.8mg QHS - indwelling catheter due to breakdown on sacrum and incontinence OBESITY -complicates all aspects of care FULL CODE DIABETIC DIET MARCUS
[2024-03-05 07:33] VITALS: BP 124/57; PULSE 75; RESP 17; TEMP 36.9; O2SAT 96
[2024-03-05 08:41] LABS: Basophils # 0.1 K/mm3 (0-0.2); Basophils % 0.7 % (0.1-2.0); Eosinophils # 0.4 K/mm3 (0.0-0.4); Eosinophils % 4.9 % (0.1-12.0); Hematocrit 30.4 % (42.0-52.0); Hemoglobin 9.8 g/dL (14.1-18.0); Lymphocytes # 1.6 K/mm3 (0.7-4.5); Lymphocytes % 20.3 % (10-50); Mean Corpuscular HGB Conc 32.4 g/dL (31.8-35.4); Mean Corpuscular Hemoglobin 27.6 pg (27.0-31.2); Mean Corpuscular Volume 85.3 fl (80-94); Mean Platelet Volume 8.7 fl (7.4-10.4); Monocytes # 0.6 K/mm3 (0.1-1.0); Monocytes % 7.7 % (1.7-9.3); Neutrophils # 5.3 K/mm3 (1.8-7.8); Neutrophils % 66.5 % (37.0-80.0); Platelet Count 234 K/mm3 (142-424); Red Blood Count 3.57 M/mm3 (4.60-6.20); Red Cell Distribution Width 18.8 % (11.5-17.5)
[2024-03-05 08:45] LABS: Chloride 111 mmol/L (98-107); Potassium 4.2 mmoL/L (3.5-5.1); Sodium 138 mmol/L (136-145)
[2024-03-05 08:48] LABS: Alanine Aminotransferase 19 U/L (12-78); Albumin Level 3.1 g/dl (3.5-5.0); Alkaline Phosphatase 109 U/L (38-126); Anion Gap 9.2 mEq/L (5-15); Aspartate Amino Transferase 24 U/L (17-59); Bilirubin,Total 0.2 mg/dl (0.2-1.3); Blood Urea Nitrogen 26 mg/dl (9-20); Calcium 8.7 mg/dl (8.4-10.2); Carbon Dioxide 22 mmol/L (22.0-30.0); Creatinine Clearance Estimated 117 mL/min (50-200); Estimated Glomerular Filt Rate 74 ml/min (>60); GFR (African American) 89 ML/MIN (>60); Globulin 3.1 g/dL (1.3-3.2); Glucose 118 mg/dl (74-100); Magnesium 1.8 mg/dl (1.6-2.3); Total Protein,Serum 6.2 g/dl (6.3-8.2)
[2024-03-05 08:56] LABS: C-Reactive Protein 17.4 mg/L (0-4)
--- NOTE | 2024-03-05 09:05 | CT_ITS ---
PROCEDURE INFORMATION: Exam: CT Left Lower Extremity Without Contrast, Foot Exam date and time: 03/05/2024 10:21 AM Age: 69 years old Clinical indication: Screening exam; Eval for osteo; Prior surgery; Surgery date: 6+ months; Surgery type: Toes removed TECHNIQUE: Imaging protocol: CT of the left lower extremity without contrast was performed. Exam focused on the foot. Radiation optimization: All CT scans at this facility use at least one of these dose optimization techniques: automated exposure control; mA and/or kV adjustment per patient size (includes targeted exams where dose is matched to clinical indication); or iterative reconstruction. 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 Soft tissue prominence at the 2nd and 3rd metatarsal heads. Diffuse bone demineralization throughout the left foot. Images limited by patient motion. Cortical irregularity suspected along the distal 2nd metatarsal bone, concerning for osteomyelitis. Confirmation could be performed with three-phase bone scan or MRI. Soft tissues: Marked skin thickening along the dorsum of the foot with significant subcutaneous edema compatible with cellulitis. IMPRESSION: 1. 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 Soft tissue prominence at the 2nd and 3rd metatarsal heads. 2. Images limited by patient motion. Cortical irregularity suspected along the distal 2nd metatarsal bone, concerning for osteomyelitis. Confirmation could be performed with three-phase bone scan or MRI. 3. Marked skin thickening along the dorsum of the foot with significant subcutaneous edema compatible with cellulitis.
[2024-03-05] MEDS: IRBESARTAN 75MG TABLET 75 MG PO (09:06)
[2024-03-05] MEDS: GABAPENTIN 100MG CAPSULE 200 MG PO ×3 (09:06→20:42)
[2024-03-05] MEDS: PANTOPRAZOLE 40MG TABLET 40 MG PO (09:06)
[2024-03-05] MEDS: BACLOFEN 10MG TABLET 10 MG PO ×2 (09:06→20:42)
[2024-03-05] MEDS: METOPROLOL SUCCINATE XL 25MG TABLET 25 MG PO (09:06)
[2024-03-05] MEDS: FINASTERIDE 5MG TABLET 5 MG PO (09:06)
[2024-03-05] MEDS: FUROSEMIDE 40 MG TABLET PO (09:06)
[2024-03-05] MEDS: FERROUS SULFATE 325MG TABLET 325 MG PO (09:06)
[2024-03-05] MEDS: DOCUSATE SODIUM 250MG CAPSULE 250 MG PO ×2 (09:07→20:42)
[2024-03-05] MEDS: ATORVASTATIN 40MG TABLET 40 MG PO (09:07)
[2024-03-05] MEDS: CLOPIDOGREL 75MG TAB 75 MG PO (09:07)
[2024-03-05] MEDS: ASPIRIN EC 81MG TABLET 81 MG PO (09:07)
[2024-03-05] MEDS: BUSPIRONE HCL 5 MG TABLET PO ×3 (09:07→20:42)
[2024-03-05] MEDS: ENOXAPARIN 40MG/0.4ML SYRINGE 40 MG SQ (09:07)
[2024-03-05] MEDS: lamoTRIgine 100MG TABLET 100 MG PO (09:08)
[2024-03-05] MEDS: NYSTATIN TOPICAL POWDER 30GM TP ×4 (09:08→20:45)
[2024-03-05] MEDS: CEFEPIME HCL 2 GM in 0.9 % SODIUM CHLORIDE 100 ML IV (09:08)
[2024-03-05 09:33] LABS: Erythrocyte Sedimentation Rate 127 mm/hr (0-20)
[2024-03-05 11:44] LABS: Vancomycin,Trough 24.9 ug/mL (5.0-10.0)
[2024-03-05 11:49] LABS: POC Glucose,Bedside 144 (70-110)
[2024-03-05] MEDS: PHA TO NURSING INSTRUCTION 1 EACH NOTAPPLIC (12:07)
--- NOTE | 2024-03-05 12:17 | EXP.PHA.CONS ---
Pharmacy Consult Date: 03/05/24 Time: 12:17 Referring provider: DR. WAHL Reason for Consult:: VANCOMYCIN LEVEL Allergies Allergy/AdvReac Type Severity Reaction Status Date / Time hydrocodone [From LORTAB] Allergy Unknown NA-NAUSEA/V Verified 06/04/23 16:47 OMITING levetiracetam [From Keppra] Allergy Verified 03/03/24 23:56 tramadol AdvReac Unknown Verified 06/04/23 16:47 allergy reaction Home Medications Medication Instructions Recorded Confirmed Type aspirin 81 mg tablet,delayed 81 mg PO DAILY Heart Disease 04/20/23 03/03/24 History release buspirone 5 mg tablet 5 mg PO TID Anxiety 04/20/23 03/03/24 History docusate sodium 250 mg capsule 250 mg PO BID Constipation 04/20/23 03/03/24 History finasteride 5 mg tablet 5 mg PO DAILY PROSTATE 04/20/23 03/03/24 History furosemide 40 mg tablet 40 mg PO DAILY Fluid 04/20/23 03/03/24 History lamotrigine 100 mg tablet 100 mg PO BID Seizure 04/20/23 03/03/24 History losartan 50 mg tablet 50 mg PO DAILY High Blood Pressure 04/20/23 03/03/24 History lamotrigine 150 mg tablet 150 mg PO HS Seizures 04/21/23 03/03/24 History insulin glargine 100 unit/mL (3 42 unit SQ HS Diabetes 06/04/23 03/03/24 History mL) subcutaneous pen (Lantus Solostar U-100 Insulin) tamsulosin 0.4 mg capsule 0.8 mg PO HS PROSTATE 06/04/23 03/03/24 History clopidogrel 75 mg tablet (Plavix) 75 mg PO DAILY #30 tabs 06/08/23 03/03/24 Rx metoprolol succinate 25 mg 25 mg PO DAILY #30 tabs 06/08/23 03/03/24 Rx tablet,extended release 24 hr atorvastatin 40 mg tablet 40 mg PO DAILY High Cholesterol 03/03/24 03/03/24 History baclofen 10 mg tablet 10 mg PO BID 03/03/24 03/03/24 History ferrous sulfate 325 mg (65 mg 325 mg PO DAILY 03/03/24 03/03/24 History iron) tablet pantoprazole 40 mg tablet,delayed 40 mg PO DAILY 03/03/24 03/03/24 History release New Prescriptions to Start Prescriptions: Height: 1.83 m Weight: 120.61 kg Laboratory Results:: Laboratory Results - last 24 hr 03/04/24 06:20: Hemoglobin A1c 6.3 H 03/04/24 16:18: POC Glucose 151 H 03/04/24 20:27: POC Glucose 170 H 03/05/24 05:42: POC Glucose 127 H 03/05/24 06:17: WBC 8.0, RBC 3.57 L, Hgb 9.8 L, Hct 30.4 L, MCV 85.3, MCH 27.6, MCHC 32.4, RDW 18.8 H, Plt Count 234, MPV 8.7, Neut % (Auto) 66.5, Lymph % (Auto) 20.3, Sequoyah % (Auto) 7.7, Eos % (Auto) 4.9, Baso % (Auto) 0.7, Neut # (Auto) 5.3, Lymph # (Auto) 1.6, Sequoyah # (Auto) 0.6, Eos # (Auto) 0.4, Baso # (Auto) 0.1, ESR 127 H, Sodium 138, Potassium 4.2, Chloride 111 H, Carbon Dioxide 22, Anion Gap 9.2, BUN 26 H D, Creatinine 1.00, Estimated Creat Clear 117, Estimated GFR 74, Est GFR ( Amer) 89, Glucose 118 H D, Calcium 8.7, Magnesium 1.8, Total Bilirubin 0.2, AST 24, ALT 19, Alkaline Phosphatase 109, C-Reactive Protein 17.4 H D, Total Protein 6.2 L, Albumin 3.1 L, Globulin 3.1, Albumin/Globulin Ratio 1.0 L 03/05/24 10:48: Vancomycin Trough 24.9 H 03/05/24 11:41: POC Glucose 144 H Medical History: Medical History (Updated 03/04/24 @ 13:09 by Feliciano Wahl MD) Seizure CAD in [place] artery Acute febrile illness Atrial flutter Bilateral cellulitis of lower leg Cellulitis Diabetes mellitus Dystrophia unguium Fatigue Fever Infestation by fly larvae Lymphedema of both lower extremities Malaise Obesity with body mass index (BMI) of 30.0 to 39.9 Peripheral vascular disease Renal insufficiency Spinal stenosis of cervical region Spinal stenosis of lumbar region Systemic inflammatory response syndrome (SIRS) Ulcers of both lower extremities Uncontrolled diabetes mellitus History of left heart catheterization (LHC) Assessment and Plan Assessment and plan all Dx Assessment and Plan for all problems:: PATIENT'S VANCOMYCIN TROUGH LEVEL WAS 24.9 MCG/ML THIS AM. RECOMMEND HOLDING DOSE UNTIL 2100 TONIGHT, THEN CHANGE DOSING INTERVAL TO Q18H.
--- OUTSIDE RECORDS SUMMARY | 2024-03-05 12:55 | XMS_ITS ---
Author Name Unknown Address [address] [place] [address] Phone Organization [facility] Address [address] [place] [address] Phone Care Team Providers Care Broadband Technician Name Role Phone Chad Roberto Unavailable Unavailable Conditions or Problems No information available. Medications Medication Instructions Start Date Stop Date Generic Name FORMERLY NAMED [facility] Provider DOXYCYCLINE HYCLATE 100 MG CAPS Take 1 capsule by mouth 2 (Two) Times a Day for 10 days. 1 doxycycline hyclate 25552641470 QIE qieuser AMOXICILLIN-POT CLAVULANATE 875-125 MG TABS 1 {tbl} Oral 1 amoxicillin-po t clavulanate 24424414038 QIE qieuser Medications Administered No information available. Allergies, Adverse Reactions, Alerts No information available. Results No information available. Plan of Care No information available. Procedures No information available. Vital Signs No information available. Immunizations No information available. Advance Directives No information available.
--- OUTSIDE RECORDS SUMMARY | 2024-03-05 12:55 | XMS_ITS ---
Author Name Unknown Address [address] [place] [address] Phone Organization [facility] Address [address] [place] [address] Phone Care Team Providers Care Blueprinter Name Role Phone Daria Garcia Unavailable Unavailable Conditions or Problems No information available. Medications Medication Instructions Start Date Stop Date Generic Name NDC Provider ubrogepant Take 1 tablet by mouth Daily As Needed. UBRELVY QIE qieuser TAMSULOSIN HCL 0.4 MG CAPS Take 2 capsules by mouth Daily. tamsulosin 44189145742 QIE qieuser PEG 3350 17 GM PACK Take 17 g by mouth Daily As Needed. polyethylene glycol 3350 43330407813 QIE qieuser Thera M Plus (ferrous fumarat) 9 mg iron-400 mcg tablet Take 1 tablet by mouth Daily. fghvfpxn-fokc-d y-cwchsuf-cirw 10665737671 QIE qieuser METOPROLOL SUCCINATE ER 25 MG [id number] Take 1 tablet by mouth Daily. metoprolol succinate 87061601231 QIE qieuser METFORMIN HCL 500 MG TABS Take 2 tablets by mouth 2 (Two) Times a Day With Meals. metformin 41807597481 QIE qieuser LOSARTAN POTASSIUM 50 MG TABS Take 1 tablet by mouth Daily. losartan 06146277437 QIE qieuser LAMOTRIGINE 25 MG TABS Take 10 tablets by mouth Every Night. lamotrigine 11009888816 QIE qieuser LAMOTRIGINE 100 MG TABS Take 1 tablet by mouth Every Morning. lamotrigine 33820466214 QIE qieuser GLIPIZIDE 5 MG TABS Take 1 tablet by mouth 2 (Two) Times a Day Before Meals. glipizide 58623490972 QIE qieuser FUROSEMIDE 40 MG TABS Take 1 tablet by mouth Daily. furosemide 31383058433 QIE qieuser FINASTERIDE 5 MG TABS Take 1 tablet by mouth Daily. finasteride 21205599194 QIE qieuser FERROUS SULFATE 325 (65 Fe) MG TABS Take 1 tablet by mouth Daily With Breakfast. ferrous sulfate 65187181081 QIE qieuser DOXYCYCLINE HYCLATE 100 MG CAPS Take 1 capsule by mouth 2 (Two) Times a Day for 7 days. doxycycline hyclate 03687220414 QIE qieuser DOCUSATE SODIUM 250 MG CAPS Take 1 capsule by mouth 2 (Two) Times a Day. docusate sodium 69441774048 QIE qieuser DIAZEPAM 2 MG TABS Take 1 tablet by mouth 2 (Two) Times a Day As Needed for Anxiety. diazepam 73715553489 QIE qieuser CLOPIDOGREL BISULFATE 75 MG TABS Take 1 tablet by mouth Daily. clopidogrel 18692490930 QIE qieuser BUSPIRONE HCL 5 MG TABS Take 1 tablet by mouth 3 (Three) Times a Day. buspirone 27086678383 QIE qieuser BACLOFEN 20 MG TABS Take 1 tablet by mouth As Needed for Muscle Spasms. baclofen 46378938359 QIE qieuser ATORVASTATIN CALCIUM 40 MG TABS Take 2 tablets by mouth Every Night. atorvastatin 47433062717 QIE qieuser ASPIRIN 81 MG TBEC Take 1 tablet by mouth Daily. OTC aspirin 26841910985 QIE qieuser AMOXICILLIN-POT CLAVULANATE 875-125 MG TABS Take 1 tablet by mouth 2 (Two) Times a Day for 7 days. amoxicillin-pot clavulanate 88760429337 QIE qieuser Medications Administered No information available. Allergies, Adverse Reactions, Alerts No information available. Results No information available. Plan of Care No information available. Procedures No information available. Vital Signs No information available. Immunizations No information available. Advance Directives No information available.
--- OUTSIDE RECORDS SUMMARY | 2024-03-05 12:55 | XMS_ITS ---
Author Name Unknown Address [address] [place] [address] Phone Organization [facility] Address [address] [place] [address] Phone Care Team Providers Care Hair Stylist Name Role Phone Mckenna MURILLO, Britton Clifford [ ] Conditions or Problems No information available. Medications No information available. Medications Administered No information available. Allergies, Adverse Reactions, Alerts Allergy Name Reaction Description Start Date Severity Statu s Provider TRAMADOL Moderate Active Britton Andres MD Results Date Name Value Unit Range Flag Description Office Visit: Office Visit: room 13 MEDS REVIEW Done Documenta tion of current medications (procedure) ORALTOBACUSE Former Tobacco smoking status SMOK STATUS Former smoker Tob acco smoking status Plan of Care No information available. Procedures No information available. Vital Signs Date Name Value Unit Description BMI (Body Mass Index) 39.45 kg/m2 Bod y Mass Index (Ratio) Body Temperature 97.6 [degF] temperat ure E&M BP Diastolic 64 mm[Hg] blood pressu re, diastolic BP Systolic 110 mm[Hg] blood pressur e, systolic Heart Rate 68 /min pulse rate Height 70 [in_us] height E&M Respiratory Rate 16 /min respirat ory rate E&M Weight Measured 275 [lb_av] weight E& M Immunizations No information available. Advance Directives Directive Description Start Date LIVING WILL ON FILE
--- OUTSIDE RECORDS SUMMARY | 2024-03-05 12:55 | XMS_ITS | Clinical Summary ---
Author Name Unknown Address [address] [place] [address] Phone Organization [facility] Address [address] [place] [address] Phone Care Team Providers Care Senior Sous Chef Name Role Phone Cecil Griffin MD Unavailable [phone] Conditions or Problems Problem Name Problem Code Onset Date Status Entry Date Provider Comment Standard Description Annotate DM Non-pressure chronic ulcer of left heel, black/dry (document depth) 357757282 (SNOMED CT) 09/19 Active 09/19 Crys Alfredo Chronic ulcer of foot Infection, local skin/subcuta neous tissue 939095827 (SNOMED CT) 09/19 Active 09/19 Crys Alfredo Localized infection of skin AND/OR subcutaneous tissue Gangrene with DM II PVD 43910809 (SNOMED CT) 09/19 Active 09/19 Crys Alfredo Type 2 diabetes mellitus DM II with diabetic PVD 023461755 (SNOMED CT) Active Crys Alfredo Peripheral vascular disease Diabetes mellitus, type II with peripheral vascular disorder, with gangrene 983329386 (SNOMED CT) Resolved Crys Alfredo Peripheral circulatory disorder due to type 2 diabetes mellitus Presence of ambrose catheter 639552128 (SNOMED CT) Resolved Crys Alfredo Urinary catheter in situ Benign Essential Hypertension 54785294 (SNOMED CT) Active Cyrs Alfredo Benign hypertension DM II with diabetic polyneuropat hy E11.42 (ICD-10-CM) Active Crys Alfredo Type 2 diabetes mellitus with diabetic polyneuropathy Other obesity due to excess calories 901856726 (SNOMED CT) Active Myranda Zelaya Simple obesity Presence of ambrose catheter 419114833 (SNOMED CT) Removed Bibi Edelen Urinary catheter in situ Pressure ulcer of left buttock, stage 1 13424258727 725685 (SNOMED CT) Active Bibi Edelen Pressure injury of buttock stage I Pressure ulcer of right buttock, stage 1 66492220584 107 (SNOMED CT) Active Bibi Edelen Pressure injury of right buttock stage I Cellulitis of left lower limb 737262740 (SNOMED CT) Active Bibi Edelen Cellulitis of leg, excluding foot Diabetes mellitus, type II with peripheral vascular disorder, with gangrene 934410516 (SNOMED CT) Removed Bibi Edelen Peripheral circulatory disorder due to type 2 diabetes mellitus Hx of DVT 781256462 (SNOMED CT) Active Bibi Edelen History of deep vein thrombosis Amputation of right leg above knee 817785155 (SNOMED CT) Active Bibi Edelen Amputated above knee Diabetes mellitus, type II with peripheral vascular disorder, without gangrene 724893422 (SNOMED CT) Inactive Bibi Edelen Peripheral circulatory disorder due to type 2 diabetes mellitus Diabetes mellitus, type II with peripheral neuropathy 68830337819 07 (SNOMED CT) Inactive Bibi Edelen Peripheral neuropathy due to type 2 diabetes mellitus Hypertension 91589137 (SNOMED CT) Inactive Bibi Edelen Hypertensive disorder Medications Medication Instructions Start Date Stop Date Generic Name NDC Provider DOXYCYCLINE HYCLATE 100 MG CAPS Take 1 capsule by mouth 2 (Two) Times a Day for 10 days. doxycycline hyclate 50509414380 QIE qieuser AMOXICILLIN-POT CLAVULANATE 875-125 MG TABS 1 {tbl} Oral amoxicillin-pot clavulanate 40336759652 QIE qieuser ATORVASTATIN CALCIUM 40 MG TABS Take 2 tablet by mouth every night atorvastatin 35738542759 Daria Minor METFORMIN HCL 500 MG TABS Take 2 tablet by mouth twice a day metformin 25945361241 Daria Minor CLOPIDOGREL BISULFATE 75 MG TABS Take 1 tablet by mouth once a day clopidogrel 03623271635 Daria Minor PEG 3350 17 GM PACK Take 17 gram by mouth once a day as needed polyethylene glycol 3350 02527595914 Daria Minor LAMOTRIGINE 100 MG TABS Take 1 tablet by mouth every morning lamotrigine 54250752184 Daria Minor FINASTERIDE 5 MG TABS Take 1 tablet by mouth once a day finasteride 83924615535 Daria Minor DOCUSATE SODIUM 250 MG CAPS Take 1 capsule by mouth twice a day docusate sodium 95411394914 Daria Minor ASPIRIN 81 MG TBEC Take 1 tablet by mouth once a day aspirin 54726878791 Daria Minor FUROSEMIDE 40 MG TABS Take 1 tablet by mouth once a day furosemide 59629406157 Daria Minor Thera M Plus (ferrous fumarat) 9 mg iron-400 mcg tablet Take 1 tablet by mouth once a day tsmxywui-imdb-h q-blmbkkb-ixiw 35140774015 Daria Minor FERROUS SULFATE 325 (65 Fe) MG TABS Take 1 tablet by mouth every morning ferrous sulfate 31993747372 Daria Minor LAMOTRIGINE 25 MG TABS Take 10 tablet by mouth every night lamotrigine 27593647353 Daria Minor BACLOFEN 20 MG TABS Take 1 tablet by mouth as needed baclofen 43896404546 Daria Minor TAMSULOSIN HCL 0.4 MG CAPS Take 2 capsule by mouth once a day tamsulosin 18125031951 Daria Minor DIAZEPAM 2 MG TABS Take 1 tablet by mouth twice a day as needed diazepam 68948416180 Daria Minor LOSARTAN POTASSIUM 50 MG TABS Take 1 tablet by mouth once a day losartan 26298677024 Daria Minor BUSPIRONE HCL 5 MG TABS Take 1 tablet by mouth three times a day buspirone 97669301556 Daria Minor METOPROLOL SUCCINATE ER 25 MG [id number] Take 1 tablet by mouth once a day metoprolol succinate 07997587289 Daria Minor ubrogepant Take 1 tablet by mouth once a day as needed UBRELVY Daria Minor GLIPIZIDE 5 MG TABS Take 1 tablet by mouth twice a day glipizide 09616798047 Daria Minor ubrogepant Take 1 tablet by mouth Daily As Needed. UBRELVY QIE qieuser TAMSULOSIN HCL 0.4 MG CAPS Take 2 capsules by mouth Daily. tamsulosin 99680883226 QIE qieuser PEG 3350 17 GM PACK Take 17 g by mouth Daily As Needed. polyethylene glycol 3350 16457586448 QIE qieuser Thera M Plus (ferrous fumarat) 9 mg iron-400 mcg tablet Take 1 tablet by mouth Daily. kxzndbjz-vvuf-n a-ldvpqzi-nyby 16910804234 QIE qieuser METOPROLOL SUCCINATE ER 25 MG [id number] Take 1 tablet by mouth Daily. metoprolol succinate 22171360146 QIE qieuser METFORMIN HCL 500 MG TABS Take 2 tablets by mouth 2 (Two) Times a Day With Meals. metformin 75602886390 QIE qieuser LOSARTAN POTASSIUM 50 MG TABS Take 1 tablet by mouth Daily. losartan 45865577784 QIE qieuser LAMOTRIGINE 25 MG TABS Take 10 tablets by mouth Every Night. lamotrigine 02917090598 QIE qieuser LAMOTRIGINE 100 MG TABS Take 1 tablet by mouth Every Morning. lamotrigine 21337467657 QIE qieuser GLIPIZIDE 5 MG TABS Take 1 tablet by mouth 2 (Two) Times a Day Before Meals. glipizide 39898205116 QIE qieuser FUROSEMIDE 40 MG TABS Take 1 tablet by mouth Daily. furosemide 59682005747 QIE qieuser FINASTERIDE 5 MG TABS Take 1 tablet by mouth Daily. finasteride 10648888167 QIE qieuser FERROUS SULFATE 325 (65 Fe) MG TABS Take 1 tablet by mouth Daily With Breakfast. ferrous sulfate 78272637532 QIE qieuser DOXYCYCLINE HYCLATE 100 MG CAPS Take 1 capsule by mouth 2 (Two) Times a Day for 7 days. doxycycline hyclate 87052162556 QIE qieuser DOCUSATE SODIUM 250 MG CAPS Take 1 capsule by mouth 2 (Two) Times a Day. docusate sodium 51246672579 QIE qieuser DIAZEPAM 2 MG TABS Take 1 tablet by mouth 2 (Two) Times a Day As Needed for Anxiety. diazepam 76946034151 QIE qieuser CLOPIDOGREL BISULFATE 75 MG TABS Take 1 tablet by mouth Daily. clopidogrel 39233926020 QIE qieuser BUSPIRONE HCL 5 MG TABS Take 1 tablet by mouth 3 (Three) Times a Day. buspirone 95387701473 QIE qieuser BACLOFEN 20 MG TABS Take 1 tablet by mouth As Needed for Muscle Spasms. baclofen 30076863301 QIE qieuser ATORVASTATIN CALCIUM 40 MG TABS Take 2 tablets by mouth Every Night. atorvastatin 35102130202 QIE qieuser ASPIRIN 81 MG TBEC Take 1 tablet by mouth Daily. OTC aspirin 00398324980 QIE qieuser AMOXICILLIN-POT CLAVULANATE 875-125 MG TABS Take 1 tablet by mouth 2 (Two) Times a Day for 7 days. amoxicillin-pot clavulanate 93122073851 QIE qieuser Medications Administered No information available. Allergies, Adverse Reactions, Alerts Allergy Name Reaction Description Start Date Severity Statu s Provider TRAMADOL Moderate Active Britton Andres MD HYDROCODONE-ACETAMINO PHEN Moderate Active Daria Minor KETOROLAC TROMETHAMINE Moderate Active Daria Minor HYDROCODONE BIT-HOMATROP MBR Moderate Active Daria Chaitanya r CODEINE PHOSPHATE Moderate Active O amaury Minor BUPROPION HCL Moderate Active Olivi a Minor Results Date Name Value Unit Range Flag Description Office Visit: Office Visit:r m 15 MEDS REVIEW Done Documenta tion of current medications (procedure) Clinical Lists Update: Prelo ad ORALTOBACUSE Former Tobacco smoking status SMOK STATUS Former smoker Tob acco smoking status Lab Report: ECG 12-LEAD [id number] 01/15/24 1524 GE us e only - for [employer] import when terms are not otherwise specified Plan of Care No information available. Procedures No information available. Vital Signs Date Name Value Unit Description BMI (Body Mass Index) 39.45 kg/m2 Bod y Mass Index (Ratio) Body Temperature 98.4 [degF] temperat ure E&M BP Diastolic 86 mm[Hg] blood pressu re, diastolic BP Systolic 134 mm[Hg] blood pressur e, systolic Heart Rate 60 /min pulse rate Height 70 [in_us] height E&M Respiratory Rate 16 /min respirat ory rate E&M Weight Measured 275.0 [lb_av] weight E& M Immunizations No information available. Advance Directives Directive Description Start Date LIVING WILL ON FILE
--- OUTSIDE RECORDS SUMMARY | 2024-03-05 12:55 | XMS_ITS ---
Author Name Unknown Address [address] [place] [address] Phone Organization [facility] Address [address] [place] [address] Phone Care Team Providers Care Magnetic Tape Typewriter Operator Name Role Phone Mckenna MURILLO, Britton Clifford [ ] Conditions or Problems No information available. Medications Medication Instructions Start Date Stop Date Generic Name NDC Provider ATORVASTATIN CALCIUM 40 MG TABS Take 2 tablet by mouth every night atorvastatin 65941906654 Daria Minor METFORMIN HCL 500 MG TABS Take 2 tablet by mouth twice a day metformin 37081835132 Daria Minor CLOPIDOGREL BISULFATE 75 MG TABS Take 1 tablet by mouth once a day clopidogrel 23577874729 Daria Minor PEG 3350 17 GM PACK Take 17 gram by mouth once a day as needed polyethylene glycol 3350 68791087294 Daria Minor LAMOTRIGINE 100 MG TABS Take 1 tablet by mouth every morning lamotrigine 27684960605 Daria Minor FINASTERIDE 5 MG TABS Take 1 tablet by mouth once a day finasteride 96075455056 Daria Minor DOCUSATE SODIUM 250 MG CAPS Take 1 capsule by mouth twice a day docusate sodium 40384797711 Daria Minor ASPIRIN 81 MG TBEC Take 1 tablet by mouth once a day aspirin 57583439185 Daria Minor FUROSEMIDE 40 MG TABS Take 1 tablet by mouth once a day furosemide 50524310594 Daria Minor Thera M Plus (ferrous fumarat) 9 mg iron-400 mcg tablet Take 1 tablet by mouth once a day rgutgnmc-dgfr-r j-qydhtgk-juwy 46807707101 Daria Minor FERROUS SULFATE 325 (65 Fe) MG TABS Take 1 tablet by mouth every morning ferrous sulfate 41002703696 Daria Garcia LAMOTRIGINE 25 MG TABS Take 10 tablet by mouth every night lamotrigine 07488776021 Daria Garcia BACLOFEN 20 MG TABS Take 1 tablet by mouth as needed baclofen 96584258701 Daria Garcia TAMSULOSIN HCL 0.4 MG CAPS Take 2 capsule by mouth once a day tamsulosin 49814637718 Daria Garcia DIAZEPAM 2 MG TABS Take 1 tablet by mouth twice a day as needed diazepam 36652331015 Daria Garcia LOSARTAN POTASSIUM 50 MG TABS Take 1 tablet by mouth once a day losartan 10020670803 Daria Garcia BUSPIRONE HCL 5 MG TABS Take 1 tablet by mouth three times a day buspirone 84062916527 Daria Gracia METOPROLOL SUCCINATE ER 25 MG [id number] Take 1 tablet by mouth once a day metoprolol succinate 46743443806 Daria Garcia ubrogepant Take 1 tablet by mouth once a day as needed UBRELVY Daria Garcia GLIPIZIDE 5 MG TABS Take 1 tablet by mouth twice a day glipizide 34293157959 Daria Garcia Medications Administered No information available. Allergies, Adverse Reactions, Alerts No information available. Results Date Name Value Unit Range Flag Description Office Visit: Office Visit:jason griffin 15 MEDS REVIEW Done Documenta tion of [...] M Immunizations No information available. Advance Directives No information available.
[2024-03-05] MEDS: MEROPENEM 1 GM in 0.9 % SODIUM CHLORIDE 100 ML IV ×2 (13:33→20:45)
--- NOTE | 2024-03-05 15:05 | P.EN_ITS ---
Advance care planning note: Active diagnosis: Functional paraplegia, right AKA, diabetes, hypertension, morbid obesity, cellulitis of left leg, desire to not proceed with further amputation, suspected osteomyelitis of left foot. The patient's active diagnoses are of sufficient risk that focused discussion on advanced care planning is indicated in order to allow the patient to thoughtf ully consider personal goals of care; and, if situations arise that prevent the ability to personally give input, to ensure appropriate representation of their personal desires through documentation or informed surrogate decision makers. Discussion: Persons present and participating in discussion: Patient Discussion: Extensive discussion about patient's current condition, his previous health history, previous amputations. He has had amputations before and is very clear that he does not want further amputation of his left leg. States he understands that this may mean his infection cannot be adequately treated. Just wants to be kept comfortable. Expressed a desire in hospice if infection progresses and cannot be treated with any means other than amputation. Is open to further evaluation with podiatry and imaging to have an informed decision. Time spent: Total time spent [id number] in education and discussion directly related to advance care plannin
[2024-03-05 16:00] VITALS: BP 120/71; PULSE 69; RESP 12; TEMP 36.8; O2SAT 98
[2024-03-05 17:04] VITALS: BMI 35.8
[2024-03-05 18:10] LABS: POC Glucose,Bedside 145 (70-110)
[2024-03-05] MEDS: ONDANSETRON 4MG/2ML VIAL 4 MG IV (18:58)
[2024-03-05 19:52] VITALS: BP 114/74; PULSE 63; RESP 17; TEMP 36.7; O2SAT 96
[2024-03-05 20:00] VITALS: PULSE 63; O2SAT 96
[2024-03-05 20:35] LABS: POC Glucose,Bedside 160 (70-110)
[2024-03-05] MEDS: INSULIN GLARGINE 100 UNITS/ML 3ML FLEXPEN 42 UNIT SQ (20:43)
[2024-03-05] MEDS: humaLOG 100 UNITS/ML 10ML VIAL (SSI) SQ (20:43)
[2024-03-05] MEDS: lamoTRIgine 100MG TABLET 250 MG PO (20:44)
[2024-03-05] MEDS: TAMSULOSIN 0.4MG CAPSULE 0.800000000000000044 MG PO (20:46)
[2024-03-05] MEDS: VANCOMYCIN HCL 2,000 MG in 0.9 % SODIUM CHLORIDE 250 ML 125 MG IV (22:25)
[2024-03-06] VITALS (17 sets, daily range): BP systolic 108–151; BP diastolic 51–89; PULSE 69–98; RESP 16–20; TEMP 36.2–37; O2SAT 92–99; BMI 35.9
--- NOTE | 2024-03-06 05:19 | PC.NURSE ---
Patient is alert and oriented x4. Patient's heart rate has been within his baseline, lung sounds are clear, and his bowel sounds are quite active. Patient occasionally is diaphoretic. He tolerates room air and is bedbound. Patient's wrap on his left foot is dry and intact. Patient's bottom was assessed today; the right buttock's ulcer is open to air, has no drainage, and mild redness and small slough growth. A tegaderm flower pad was applied to the patient's left buttock ulcer due to bleeding; redness was noted, no purulent drainage or other changes noted for the ulcer at this time. Nystatin powder was applied in patient's abdominal folds. Patient's right antecubital IV infiltrated during this shift around midnight; a new IV was inserted into the left wrist by Rhonda HOOKS. Patient's male purewick is in place and functioning. Patient is sitting up at the bedside at this time; no further complaints. Call light within reach.
[2024-03-06] MEDS: MEROPENEM 1 GM in 0.9 % SODIUM CHLORIDE 100 ML IV (05:39)
[2024-03-06 05:53] LABS: POC Glucose,Bedside 132 (70-110)
--- NOTE | 2024-03-06 06:54 | EXP.POD.CONS ---
Documented by User: Amanda Marie APRN 03/06/24 08:21 History of Present Illness *Admission Date: 03/03/24 *History of present illness: Patient had his right leg amputated below the knee in the distant past. Developed problems with the left foot was seen at [facility] in [place] and had 2 toes amputated. Cellulitis and infection continued in the left extremity he actually stated he was in [facility] for 21 days on IV antibiotics. He did not want to go back to [facility] wanted to be treated here. Also was requesting help to determine to be on comfort care and be able to stay in his own home 03/06/24- Podiatry consult Patient resting in bed upon entering the room. Alert and oriented and very pleasant in conversation. Patient had not eaten breakfast at this point due to feeling some nausea. Will have him stay NPO until after surgery for today. [facility] Disclaimer: The information contained in this section may have been updated after the patient was seen, as this information can be updated by other users. Medical History (Updated 03/06/24 @ 08:35 by Sherri Faust DPM) Seizure CAD in [place] artery Acute febrile illness Atrial flutter Bilateral cellulitis of lower leg Cellulitis Diabetes mellitus Dystrophia unguium Fatigue Fever Infestation by fly larvae Lymphedema of both lower extremities Malaise Obesity with body mass index (BMI) of 30.0 to 39.9 Peripheral vascular disease Renal insufficiency Spinal stenosis of cervical region Spinal stenosis of lumbar region Systemic inflammatory response syndrome (SIRS) Ulcers of both lower extremities Uncontrolled diabetes mellitus History of left heart catheterization (LHC) Surgical History H/O Spinal surgery Family History Breast cancer Mother Family history of myocardial infarction Mother Social History (Updated 03/04/24 @ 00:03 by Gill Peter RN) Smoking Status: Former smoker tobacco type: cigarettes alcohol intake: never substance use type: marijuana current occupational status: retired and disabled Travel in the last 8 weeks: None household members: family caffeine: No Review of Systems Constitutional Constitutional: Reports weakness *Neurologic Neurologic: Reports system reviewed and no additional complaints, except as documented and Reports weakness Meds Home Medications and Allergies Home Medications Medication Instructions Recorded Confirmed Type aspirin 81 mg tablet,delayed 81 mg PO DAILY Heart Disease 04/20/23 03/03/24 History release buspirone 5 mg tablet 5 mg PO TID Anxiety 04/20/23 03/03/24 History docusate sodium 250 mg capsule 250 mg PO BID Constipation 04/20/23 03/03/24 History finasteride 5 mg tablet 5 mg PO DAILY PROSTATE 04/20/23 03/03/24 History furosemide 40 mg tablet 40 mg PO DAILY Fluid 04/20/23 03/03/24 History lamotrigine 100 mg tablet 100 mg PO BID Seizure 04/20/23 03/03/24 History losartan 50 mg tablet 50 mg PO DAILY High Blood Pressure 04/20/23 03/03/24 History lamotrigine 150 mg tablet 150 mg PO HS Seizures 04/21/23 03/03/24 History insulin glargine 100 unit/mL (3 42 unit SQ HS Diabetes 06/04/23 03/03/24 History mL) subcutaneous pen (Lantus Solostar U-100 Insulin) tamsulosin 0.4 mg capsule 0.8 mg PO HS PROSTATE 06/04/23 03/03/24 History clopidogrel 75 mg tablet (Plavix) 75 mg PO DAILY #30 tabs 06/08/23 03/03/24 Rx metoprolol succinate 25 mg 25 mg PO DAILY #30 tabs 06/08/23 03/03/24 Rx tablet,extended release 24 hr atorvastatin 40 mg tablet 40 mg PO DAILY High Cholesterol 03/03/24 03/03/24 History baclofen 10 mg tablet 10 mg PO BID 03/03/24 03/03/24 History ferrous sulfate 325 mg (65 mg 325 mg PO DAILY 03/03/24 03/03/24 History iron) tablet pantoprazole 40 mg tablet,delayed 40 mg PO DAILY 03/03/24 03/03/24 History release New Prescriptions to Start Prescriptions: Allergies Allergy/AdvReac Type Severity Reaction Status Date / Time hydrocodone [From LORTAB] Allergy Unknown NA-NAUSEA/V Verified 06/04/23 16:47 OMITING levetiracetam [From Keppra] Allergy Verified 03/03/24 23:56 tramadol AdvReac Unknown Verified 06/04/23 16:47 allergy reaction Exam (Inpt) Vital signs and Labs for Last 24 Hours: Temp Pulse Resp BP Pulse Ox O2 Del Method 98.1 F 77 18 151/75 H 92 L Room Air 03/06/24 04:00 03/06/24 04:00 03/06/24 04:00 03/06/24 04:00 03/06/24 04:00 03/06/24 06:51 Laboratory Results - last 24 hr 03/05/24 06:17: WBC 8.0, RBC 3.57 L, Hgb 9.8 L, Hct 30.4 L, MCV 85.3, MCH 27.6, MCHC 32.4, RDW 18.8 H, Plt Count 234, MPV 8.7, Neut % (Auto) 66.5, Lymph % (Auto) 20.3, [place] % (Auto) 7.7, Eos % (Auto) 4.9, Baso % (Auto) 0.7, Neut # (Auto) 5.3, Lymph # (Auto) 1.6, [place] # (Auto) 0.6, Eos # (Auto) 0.4, Baso # (Auto) 0.1, ESR 127 H, Sodium 138, Potassium 4.2, Chloride 111 H, Carbon Dioxide 22, Anion Gap 9.2, BUN 26 H D, Creatinine 1.00, Estimated Creat Clear 117, Estimated GFR 74, Est GFR ( Amer) 89, Glucose 118 H D, Calcium 8.7, Magnesium 1.8, Total Bilirubin 0.2, AST 24, ALT 19, Alkaline Phosphatase 109, C-Reactive Protein 17.4 H D, Total Protein 6.2 L, Albumin 3.1 L, Globulin 3.1, Albumin/Globulin Ratio 1.0 L 03/05/24 10:48: Vancomycin Trough 24.9 H 03/05/24 11:41: POC Glucose 144 H 03/05/24 16:31: POC Glucose 145 H 03/05/24 20:27: POC Glucose 160 H 03/06/24 05:38: POC Glucose 132 H I & O for Labs for Last 24 Hours: Intake & Output 03/03/24 03/04/24 03/05/24 03/06/24 23:59 23:59 23:59 23:59 Intake Total 2820 / 2820 1307 / 1307 372 / 372 Output Total 4625 / 4625 975 / 975 1000 / 1000 Balance -1805 / -1805 332 / 332 -628 / -628 Weight 270 lb 265 lb 14.4 oz 264 lb 8.875 oz 265 lb 11.2 oz Microbiology Reports for the Last 24 Hours: Microbiology 03/03/24 20:20 Blood Blood Culture - Preliminary NO GROWTH AFTER 48 HOURS 03/03/24 20:10 Blood Blood Culture - Preliminary NO GROWTH AFTER 48 HOURS Constitutional: Present no acute distress and cooperative Head: Present normocephalic Eye: Present as per HPI Neck: Present trachea midline Respiratory: Present normal respiratory effort and able to speak in complete sentences Cardiac: Present posterior tibial pulses present and pedal pulses present Comment:: 2+ pedal edema, palpable DP/PT pulses to Left foot, Right AKA noted. Comments:: deferred Rectal (male): Present deferred (male): Present deferred Extremities: Present normal capillary refill and edema (2+ Left pedal edema, LLE cellulitis, Ulcer to L Lower leg cultured.); Absent calf tenderness Comment:: Left 2nd and 3rd toe amp approximately 1 month ago, no drainage noted, scab intact. Cellulitis noted to left foot Skin: Present erythema and wounds (Left lower leg, Left 2nd-3rd toe amp, Left heel. ) Neuro: Present Grossly Intact, oriented x 3 and tone normal Comment:: Hx of neuropathy Ankle: left: decreased ROM (Right AKA noted) Feet/Toes: bilateral: amputation (L 2nd & 3rd toes, Right AKA), bilateral: nail abnormalities, bilateral: onychomycosis (suspected ) and bilateral: decreased ROM Inspection: Present foot deformity deformity: Present hammer toes, nail disorder, infection (cellulitis Left lower leg and foot ) and other (Right AKA, left 2nd and 3rd toe amp.) Pulses: L dorsalis pedis pulse: normal, R dorsalis pedis pulse: normal, L posterior tibial pulse: normal and R posterior tibial pulse: normal CFT: normal: CFT Results Labs 03/06/24 06:24 03/06/24 06:24 Labs: Abnormal lab results 03/05/24 03/05/24 03/05/24 Range/Units 06:17 10:48 11:41 RBC 3.57 L (4.60-6.20) M/mm3 Hgb 9.8 L (14.1-18.0) g/dL Hct 30.4 L (42.0-52.0) % RDW 18.8 H (11.5-17.5) % ESR 127 H (0-20) mm/hr Chloride 111 H (98-107) mmol/L BUN 26 H D (9-20) mg/dl Glucose 118 H D (74-100) mg/dl POC Glucose 144 H (70-110) C-Reactive Protein 17.4 H D (0-4) mg/L Total Protein 6.2 L (6.3-8.2) g/dl Albumin 3.1 L (3.5-5.0) g/dl Albumin/Globulin Ratio 1.0 L (1.1-1.8) Vancomycin Trough 24.9 H (5.0-10.0) ug/mL 03/05/24 03/05/24 03/06/24 Range/Units 16:31 20:27 05:38 RBC (4.60-6.20) M/mm3 Hgb (14.1-18.0) g/dL Hct (42.0-52.0) % RDW (11.5-17.5) % ESR (0-20) mm/hr Chloride (98-107) mmol/L BUN (9-20) mg/dl Glucose (74-100) mg/dl POC Glucose 145 H 160 H 132 H (70-110) C-Reactive Protein (0-4) mg/L Total Protein (6.3-8.2) g/dl Albumin (3.5-5.0) g/dl Albumin/Globulin Ratio (1.1-1.8) Vancomycin Trough (5.0-10.0) ug/mL H & H 03/03/24 03/04/24 03/05/24 Range/Units 20:10 06:20 06:17 Hgb 10.1 L 9.7 L 9.8 L (14.1-18.0) g/dL Hct 31.9 L 30.5 L 30.4 L (42.0-52.0) % All other labs normal. Assessment and Plan *Assessment and plan (1) Diabetic foot infection: Status: Acute Category: Medical Code(s): E11.628 - Type 2 diabetes mellitus with other skin complications; L08.9 - Local infection of the skin and subcutaneous tissue, unspecified (2) Cellulitis of left leg: Status: Acute Category: Medical Code(s): L03.116 - Cellulitis of left lower limb (3) PAD (peripheral artery disease): Status: Acute Category: Medical Code(s): I73.9 - Peripheral vascular disease, unspecified (4) Diabetic ulcer of left foot: Status: Acute Qualifiers: Diabetes mellitus type: type 2 Diabetic foot ulcer location: heel Non-pressure ulcer stage: with fat layer exposed Qualified Code(s): E11.621 - Type 2 diabetes mellitus with foot ulcer; L97.422 - Non-pressure chronic ulcer of left heel and midfoot with fat layer exposed Category: Medical Code(s): E11.621 - Type 2 diabetes mellitus with foot ulcer; L97.529 - Non-pressure chronic ulcer of other part of left foot with unspecified severity (5) Infection of toe as complication of amputation: Status: Acute Category: Medical Code(s): T87.40 - Infection of amputation stump, unspecified extremity (6) Right above-knee amputee: Status: Acute Category: Medical Code(s): Z89.611 - Acquired absence of right leg above knee Documented by User: Sherri Faust DPM 03/06/24 08:48 [facility] Medical History (Updated 03/06/24 @ 08:35 by Sherri Faust DPM) Seizure CAD in [place] artery Acute febrile illness Atrial flutter Bilateral cellulitis of lower leg Cellulitis Diabetes mellitus Dystrophia unguium Fatigue Fever Infestation by fly larvae Lymphedema of both lower extremities Malaise Obesity with body mass index (BMI) of 30.0 to 39.9 Peripheral vascular disease Renal insufficiency Spinal stenosis of cervical region Spinal stenosis of lumbar region Systemic inflammatory response syndrome (SIRS) Ulcers of both lower extremities Uncontrolled diabetes mellitus History of left heart catheterization (LHC) Surgical History H/O Spinal surgery Family History Breast cancer Mother Family history of myocardial infarction Mother Social History (Updated 03/04/24 @ 00:03 by Gill Peter RN) Smoking Status: Former smoker tobacco type: cigarettes alcohol intake: never substance use type: marijuana current occupational status: retired and disabled Travel in the last 8 weeks: None household members: family caffeine: No Meds Home Medications and Allergies Home Medications Medication Instructions Recorded Confirmed Type aspirin 81 mg tablet,delayed 81 mg PO DAILY Heart Disease 04/20/23 03/03/24 History release buspirone 5 mg tablet 5 mg PO TID Anxiety 04/20/23 03/03/24 History docusate sodium 250 mg capsule 250 mg PO BID Constipation 04/20/23 03/03/24 History finasteride 5 mg tablet 5 mg PO DAILY PROSTATE 04/20/23 03/03/24 History furosemide 40 mg tablet 40 mg PO DAILY Fluid 04/20/23 03/03/24 History lamotrigine 100 mg tablet 100 mg PO BID Seizure 04/20/23 03/03/24 History losartan 50 mg tablet 50 mg PO DAILY High Blood Pressure 04/20/23 03/03/24 History lamotrigine 150 mg tablet 150 mg PO HS Seizures 04/21/23 03/03/24 History insulin glargine 100 unit/mL (3 42 unit SQ HS Diabetes 06/04/23 03/03/24 History mL) subcutaneous pen (Lantus Solostar U-100 Insulin) tamsulosin 0.4 mg capsule 0.8 mg PO HS PROSTATE 06/04/23 03/03/24 History clopidogrel 75 mg tablet (Plavix) 75 mg PO DAILY #30 tabs 06/08/23 03/03/24 Rx metoprolol succinate 25 mg 25 mg PO DAILY #30 tabs 06/08/23 03/03/24 Rx tablet,extended release 24 hr atorvastatin 40 mg tablet 40 mg PO DAILY High Cholesterol 03/03/24 03/03/24 History baclofen 10 mg tablet 10 mg PO BID 03/03/24 03/03/24 History ferrous sulfate 325 mg (65 mg 325 mg PO DAILY 03/03/24 03/03/24 History iron) tablet pantoprazole 40 mg tablet,delayed 40 mg PO DAILY 03/03/24 03/03/24 History release New Prescriptions to Start Prescriptions: Allergies Allergy/AdvReac Type Severity Reaction Status Date / Time hydrocodone [From LORTAB] Allergy Unknown NA-NAUSEA/V Verified 06/04/23 16:47 OMITING levetiracetam [From Keppra] Allergy Verified 03/03/24 23:56 tramadol AdvReac Unknown Verified 06/04/23 16:47 allergy reaction Exam (Inpt) Constitutional: Present obese Neck: Present normal inspection Comment:: 2+ pedal edema, palpable DP/PT pulses to Left foot, Right AKA noted. Has recent LLE stent. GI: Present soft Comment:: Left 2nd and 3rd toe amp approximately 1 month ago, no drainage noted, scab intact. Cellulitis noted to left foot. Multiple wounds to LLE skin, all have 100% fibrotic base. WCx taken from left leg wound. Left heel ulcer. Post: 50% granular, 50% fibrotic, 0.5x0.5x0.4cm. Wound to left 2-3rd amp site. 100% intact scab/eschar. Skin: Present intact, warm and wounds (Left lower leg, Left 2nd-3rd toe amp, Left heel) Neuro: Present Motor Function Intact and moves all extremities Ankle: left: swelling (LLE edema, erythema) and left: tenderness Feet/Toes: left: swelling (L 2-3rd toe amp site), left: tenderness (amp site) and left: wound Inspection: Present skin break Results Labs 03/06/24 06:24 03/06/24 06:24 Diagnostic results Ankle/Foot x-ray: report reviewed (prior 2-3rd toe amp) and image reviewed Ankle/Foot CT: report reviewed (OM 2nd metatarsal) and image reviewed Assessment and Plan *Assessment and plan (1) Diabetic foot infection: Status: Acute Category: Medical Code(s): E11.628 - Type 2 diabetes mellitus with other skin complications; L08.9 - Local infection of the skin and subcutaneous tissue, unspecified (2) Cellulitis of left leg: Status: Acute Category: Medical Code(s): L03.116 - Cellulitis of left lower limb (3) PAD (peripheral artery disease): Status: Acute Category: Medical Code(s): I73.9 - Peripheral vascular disease, unspecified (4) Diabetic ulcer of left foot: Status: Acute Qualifiers: Diabetes mellitus type: type 2 Diabetic foot ulcer location: heel Non-pressure ulcer stage: with fat layer exposed Qualified Code(s): E11.621 - Type 2 diabetes mellitus with foot ulcer; L97.422 - Non-pressure chronic ulcer of left heel and midfoot with fat layer exposed Category: Medical Code(s): E11.621 - Type 2 diabetes mellitus with foot ulcer; L97.529 - Non-pressure chronic ulcer of other part of left foot with unspecified severity (5) Infection of toe as complication of amputation: Status: Acute Category: Medical Code(s): T87.40 - Infection of amputation stump, unspecified extremity (6) Right above-knee amputee: Status: Acute Category: Medical Code(s): Z89.611 - Acquired absence of right leg above knee Plan PRE-OP AMPUTATION/INFECTION: Left DFU, cellulitis: -hx L 2-3rd toe amp in January [address] hospital stay at [facility] with ID consults, LLE stenting -patient seen and evaluated at bedside by myself and CHALK TESTER -sharp excision wound x4 debridement with 15' blade full thickness thru skin into subq -left leg WCx taken -betadine, DSD applied -discussed non-op vs surgical treatment options -discussed continuing IV abx vs hospice -patient lives alone: refusing SNF -has HHC 2x weekly for dressing changes -may need PICC: will discuss with Dr Coto -has agreed to surgery today, NPO We discussed conservative versus surgical treatment options. Conservative treatment options include local wound care, oral and IV antibiotics, change in shoe wear, taping/padding, and off-loading. We discussed surgical intervention for wound debridement and amputation of the partial left second metatarsal. Patient understands that there is a chance that the toes can migrate to fill the gap or the foot may change shape after surgery. Patient also understands that they could have wound healing complications including delayed healing and infection. We discussed that if the wound does not heal, it is possible that they may need a more proximal amputation and could result in further loss of digits, loss of partial foot or loss of leg. We discussed the risks and benefits in great detail. Other surgical risks include: prolonged pain and swelling, further infection requiring oral or IV antibiotics, delay in healing of soft tissue or bone, nerve or blood vessel damage, CRPS/RSD, DVT/PE, anesthesia complications, and even . All questions answered. Patient verbalized understanding. Consent obtained. Plan for surgery: 03/06/24 @12pm left partial 2nd metatarsal amputation left toe amputation skin revision foot wound debridement leg wound debridement
[2024-03-06 07:04] LABS: Basophils # 0.1 K/mm3 (0-0.2); Basophils % 0.9 % (0.1-2.0); Eosinophils # 0.5 K/mm3 (0.0-0.4); Eosinophils % 5.6 % (0.1-12.0); Hematocrit 33.1 % (42.0-52.0); Hemoglobin 10.6 g/dL (14.1-18.0); Lymphocytes # 1.7 K/mm3 (0.7-4.5); Mean Corpuscular Hemoglobin 27.4 pg (27.0-31.2); Mean Corpuscular Volume 85.5 fl (80-94); Mean Platelet Volume 8.7 fl (7.4-10.4); Monocytes # 0.7 K/mm3 (0.1-1.0); Monocytes % 7.8 % (1.7-9.3); Neutrophils # 5.9 K/mm3 (1.8-7.8); Neutrophils % 66.6 % (37.0-80.0); Platelet Count 251 K/mm3 (142-424); Red Blood Count 3.87 M/mm3 (4.60-6.20); Red Cell Distribution Width 18.8 % (11.5-17.5); White Blood Count 8.8 K/mm3 (4.8-10.8)
[2024-03-06 07:16] LABS: Chloride 109 mmol/L (98-107); Sodium 139 mmol/L (136-145)
[2024-03-06 07:17] LABS: Potassium 4.4 mmoL/L (3.5-5.1)
[2024-03-06 07:19] LABS: Alanine Aminotransferase 22 U/L (12-78); Albumin Level 3.5 g/dl (3.5-5.0); Alkaline Phosphatase 121 U/L (38-126); Anion Gap 14.4 mEq/L (5-15); Aspartate Amino Transferase 27 U/L (17-59); Bilirubin,Total 0.3 mg/dl (0.2-1.3); Blood Urea Nitrogen 23 mg/dl (9-20); Carbon Dioxide 20 mmol/L (22.0-30.0); Creatinine Clearance Estimated 117 mL/min (50-200); Estimated Glomerular Filt Rate 74 ml/min (>60); GFR (African American) 89 ML/MIN (>60); Globulin 3.5 g/dL (1.3-3.2)
[2024-03-06 07:20] LABS: Glucose 135 mg/dl (74-100)
[2024-03-06 07:24] LABS: Magnesium 1.7 mg/dl (1.6-2.3)
[2024-03-06] MEDS: ASPIRIN EC 81MG TABLET 81 MG PO (08:35)
[2024-03-06] MEDS: CLOPIDOGREL 75MG TAB 75 MG PO (08:35)
[2024-03-06] MEDS: FUROSEMIDE 40 MG TABLET PO (08:35)
[2024-03-06] MEDS: IRBESARTAN 75MG TABLET 75 MG PO (08:35)
[2024-03-06] MEDS: lamoTRIgine 100MG TABLET 100 MG PO (08:35)
[2024-03-06] MEDS: DOCUSATE SODIUM 250MG CAPSULE 250 MG PO ×2 (08:36→21:06)
[2024-03-06] MEDS: ATORVASTATIN 40MG TABLET 40 MG PO (08:36)
[2024-03-06] MEDS: FERROUS SULFATE 325MG TABLET 325 MG PO (08:36)
[2024-03-06] MEDS: METOPROLOL SUCCINATE XL 25MG TABLET 25 MG PO (08:36)
[2024-03-06] MEDS: PANTOPRAZOLE 40MG TABLET 40 MG PO (08:36)
[2024-03-06] MEDS: BUSPIRONE HCL 5 MG TABLET PO (08:36)
[2024-03-06] MEDS: ENOXAPARIN 40MG/0.4ML SYRINGE 40 MG SQ (08:37)
[2024-03-06] MEDS: FINASTERIDE 5MG TABLET 5 MG PO (08:37)
[2024-03-06] MEDS: NYSTATIN TOPICAL POWDER 30GM TP ×3 (08:37→21:10)
[2024-03-06] MEDS: BACLOFEN 10MG TABLET 10 MG PO ×2 (08:37→21:06)
[2024-03-06] MEDS: GABAPENTIN 100MG CAPSULE 200 MG PO ×2 (08:37→21:07)
[2024-03-06] MEDS: MAGNESIUM OXIDE 400MG TABLET 400 MG PO (08:42)
[2024-03-06] MEDS: ACETAMINOPHEN 325MG TAB 650 MG PO (09:00)
--- NOTE | 2024-03-06 09:44 | SW/DCPLANNER ---
Mildred mcgraw/ [facility] stated that Hospice nurse did evaluate patient this past weekend at bedside. Patient stated that he is not currently interested in Hospice services at this time.
--- NOTE | 2024-03-06 12:19 | P.PNANES_ITS ---
[facility] Disclaimer: The information contained in this section may have been updated after the patient was seen, as this information can be updated by other users. Medical History Seizure CAD in [place] artery Acute febrile illness Atrial flutter Bilateral cellulitis of lower leg Cellulitis Diabetes mellitus Dystrophia unguium Fatigue Fever Infestation by fly larvae Lymphedema of both lower extremities Malaise Obesity with body mass index (BMI) of 30.0 to 39.9 Peripheral vascular disease Renal insufficiency Spinal stenosis of cervical region Spinal stenosis of lumbar region Systemic inflammatory response syndrome (SIRS) Ulcers of both lower extremities Uncontrolled diabetes mellitus History of left heart catheterization (LHC) Surgical History H/O Spinal surgery Family History Mother Breast cancer Family history of myocardial infarction Social History Smoking Status: Former smoker tobacco type: cigarettes alcohol intake: never substance use type: marijuana current occupational status: retired and disabled Travel in the last 8 weeks: None household members: family caffeine: No [facility] Anesthesia Checklist Patient Identification Patient Identification: Arm Band and Verbal (Name & ) Structural Data Admitted From: Inpatient Planned Operative Procedure/s: Toe amp Consent for Planned Operative Procedure(s) Verified: Yes Verified Documents: Surgical Consent and History and Physical NPO Status Verified Time NPO: 07:00 (Bite of biscuit) Additional verifications Anesthesia Reactions: No Airway Assessment Mallampati Score:: Class III C-Spine Mobility Assessed: Yes TMJ Mobility Assessed: Yes Dentition: Edentulous Neurological Assessment Level of Consciousness: Awake Hx Seizures: No Numbness or tingling in extremities: Yes Anesthesia Plan Anesthesia Risk discussed: Yes Anesthesia Plan: Verified ASA Class: III Anesthesia Type: General
[2024-03-06] MEDS: GENTAMICIN 80 MG/2 ML VIAL ×2 (13:33→13:34)
[2024-03-06] MEDS: VANCOMYCIN 1000MG VIAL 1000 MG (13:34)
[2024-03-06] MEDS: BUPIVACAINE 0.5% 10ML VIAL 50 MG (13:37)
--- NOTE | 2024-03-06 14:17 | XR_ITS ---
FINAL REPORT CLINICAL HISTORY: Post 2nd met partial amp FINDINGS: LEFT FOOT 2 views of the left foot were obtained. Patient is status post amputation of the second and third digits. Antibiotic beads are present. Bones are osteopenic. IMPRESSION: Postoperative changes of second and third digit amputation with antibiotic beads in place. Reviewed, Interpreted and Dictated by Luisa Sanford MD Transcribed by Jaclyn Kuhn Authenticated and [facility]
--- NOTE | 2024-03-06 14:18 | P.OP_ITS ---
Date of procedure: 03/06/24 Pre-op Diagnosis:: Left 2nd metatarsal OM Previous left 2-3rd toe amp (01/28/24) Post-op Diagnosis:: Same Procedure performed:: Left 2nd partial metatarsal amputation Revision of prior amputation site/wound dehiscence with derotational skin flap Left heel wound debridement Left leg wound debridement x 2 Application of antibiotic beads Surgeon:: Sherri Faust DPM PRINCIPAL STATISTICAL PROGRAMMER:: Barak Nair Anesthesia: GETA and local (10cc 0.5% marcaine plain) Estimated blood loss (mL): 20 Operative findings:: Right AKA. Left previous 2-3rd toe amputation with partial wound dehiscence and a wound noted to the central previous amputation site. Wound 100% black eschar. Wound excised full-thickness through skin and subcu and deep fascia. Cortical erosion and changes to the second metatarsal head consistent with CT findings of osteomyelitis. Distal tissue was diaz and yellow in appearance. No zeb purulence to culture. Post debridement and revision of the wound distal toe amp site there was healthy bleeding to the skin edges and skin 100% granular. Left anterior distal leg wound: 100% granular, 3 x 2 x 0.1 cm. Left anterior medial distal leg wound: 100% granular, 2.7 x 2.5 x 0.1 cm. Left heel wound: 100% granular, 0.5 x 0.6 x 0.1 cm. No sinus tracking or drainage noted. Operative note:: On this date and time patient was deemed an appropriate surgical candidate. With informed consent signed, the patient was taken to the operating theater. The patient was positioned supine. LMA anesthesia was induced. No tourniquet used. Pre-op left ankle ring block given with 10 cc 0.5% marcaine plain. IV vancomycin previously given. Left extremity prepped and draped in normal sterile fashion. Left heel and leg x2 wound debridement: Attention was directed to the anterior burrell and heel where wounds were noted. Curette and 15 blade were used to sharply excisionally debride the wound full-thickness through skin into/including subcutaneous tissue. No purulence malodor or drainage noted. Postdebridement wounds were 100% granular. See operative finding for measurements Left excision of wound, 2nd partial metatarsal amputation: A fish mouth then T- incision was mapped out over the second and third digit amp site extending onto the metatarsals. Utilizing a 15 blade dissection was carried down sharply full- thickness to the level of the bone. The entire previous amputation site and the wound were sent as tissue for culture. There was no zeb purulence expressed. The second metatarsal head changes as above. Power resection was used to resect the head of the metatarsal which was sent for bone culture. The remaining bone appeared to be viable and the saw was used to take a proximal margin from the second metatarsal and sent for path. Next 3L of gentamicin irrigation was used to flush the wound and pulse lavage. The wound was reexplored and no further signs of infection noted. The remaining bone appeared to be hard in texture normal color. The wound was reexplored and no deep signs of infection or sinus tracking noted. A clean 15 blade was used to debride previous amputation site wound edges. Good healthy bleeding was noted at this level. Bleeding controlled. Vessels were ligated with electrocautery, as needed. Left application of antibiotic beads: 1 g of vancomycin powder was mixed with the OsteoSet beads. The antibiotic beads were then inserted. Next Prolene, Nylon and Keyshawn-guard was used to close skin in an interrupted simple suture fashion. Left revise of toe amp site/derotational skin flap: Due to the amount of soft tissue that was removed from the previous amputation site, a longitudinal incision was then extended dorsally. The skin and underlying subcutaneous tissue was then derotated in order to bring it from dorsal lateral to medial plantar in order to cover the defect left from the toe amputation. There was good soft tissue closure. No exposed bone noted. The remaining 1st and 4-5th toes skin were intact and not gangrenous. Skin was cleansed. Xeroform, Betadine soaked 4 x 4's followed by dry sterile dressing applied to the foot. The patient tolerated the procedure and local anesthesia well, without complications. The patient was awoken from anesthesia and transferred to recovery with vital signs stable and neurovascular status intact. Materials: Suture guard (Keyshawn-guard) x2, Prolene , Nylon. [facility] Osteoset beads, 1g vancomycin powder Discharge/Plan: Okay to DC back to floor when ready and vital signs stable. Patient is to maintain dressing clean dry and intact. Recommend PICC, IV antibiotics. Non weight bearing to the left lower extremity with DME assistance (wheelchair). Obtain post op films, left foot, 3 views. Follow-up next week for dressing change. Okay to change dressing if needed for strike thru (betadine soaked 4x4s, dry 4x4s, Kerlix, abd pad, Stewart bandage). Condition: stable Disposition: floor Specimens:: Left toe amputation tissue culture Left second metatarsal bone culture Left second metatarsal proximal margin Complications:: None
--- NOTE | 2024-03-06 14:23 | EXP.ANES.I ---
[facility] Anesthesia Record Part I Anesthesia Record I Intake, IV Amount: 900 Hydration: Adequate Estimated blood loss (mL): 5 Urine output (mL): 0 Blood Pressure: 139/68 SaO2: 94 Pulse Rate: 93 Airway Patency: Patent Respiratory Rate: 19 Temperature: 97.2 F Patient is:: Awake Stable to PACU at:: 14:20
[2024-03-06 14:29] LABS: POC Glucose,Bedside 140 (70-110)
--- NOTE | 2024-03-06 15:05 | XR_ITS ---
FINAL REPORT TECHNIQUE: Single view chest CLINICAL HISTORY: PICC line placement FINDINGS: A single view of the chest was obtained. There is a right PICC with the tip in the SVC. The heart and mediastinum are within normal limits. The lungs are clear. There is no pneumothorax. Osseous structures are unremarkable. IMPRESSION: No acute cardiopulmonary process. Right PICC with the tip in the SVC. Reviewed, Interpreted and Dictated by Luisa Sanford MD Transcribed by Jaclyn Kuhn Authenticated and [facility]
--- NOTE | 2024-03-06 15:39 | PC.NURSE ---
1508- PICC Line placed at this time. 40cm in the Right Basilic vein. Blood return obtained, dressing placed and c/d/i and chest x-ray completed. Report given to Luisa Jo about procedure and awaiting on chest x-ray report.
[2024-03-06] MEDS: LEVOFLOXACIN/D5W 750 MG/150 ML 750 MG/150 ML PIGGYBACK 100 MG IV (16:43)
[2024-03-06] MEDS: OXYCODONE 5MG IMMEDIATE RELEASE TABLET 5 MG PO ×2 (16:43→21:04)
[2024-03-06 17:20] LABS: POC Glucose,Bedside 162 (70-110)
[2024-03-06] MEDS: MORPHINE 4MG/ML SYRINGE 4 MG IV ×2 (17:42→21:38)
--- NOTE | 2024-03-06 17:53 | P.PN_ITS ---
Subjective *Date: 03/06/24 *Time: 17:53 Interval history: Patient did well overnight. No acute events. Stable on room air. Podiatry evaluated today, going for debridement and amputation of distal second metatarsal. Afebrile overnight. Medical Exam Vital signs and Labs for Last 24 Hours: Vital Signs Temp Pulse Pulse Resp BP BP Pulse Ox 03/06/24 17:45 98.6 F 83 17 138/82 97 03/06/24 17:15 98.3 F 74 17 124/82 96 03/06/24 16:45 98.1 F 69 17 116/89 97 03/06/24 16:15 98.3 F 81 16 124/72 98 03/06/24 16:00 98 F 90 16 132/66 96 03/06/24 15:45 98 F 91 H 18 117/51 L 96 03/06/24 15:30 97.7 F 84 16 130/57 L 95 03/06/24 14:50 94 H 18 108/69 L 99 03/06/24 14:40 94 H 18 127/89 98 03/06/24 14:30 98 H 18 136/70 94 L 03/06/24 14:24 97.2 F L 93 H 19 139/68 03/06/24 14:20 97.7 F 93 H 20 139/68 94 L 03/06/24 09:00 03/06/24 08:00 03/06/24 07:32 98.5 F 77 20 129/59 L 94 L 03/06/24 06:51 03/06/24 04:58 03/06/24 04:00 98.1 F 77 18 151/75 H 92 L 03/06/24 03:00 03/06/24 00:59 03/05/24 23:00 03/05/24 21:00 03/05/24 20:00 63 96 03/05/24 19:52 98.1 F 63 17 114/74 96 03/05/24 18:39 O2 Del Method 03/06/24 17:45 Room Air 03/06/24 17:15 Room Air 03/06/24 16:45 Room Air 03/06/24 16:15 Room Air 03/06/24 16:00 Room Air 03/06/24 15:45 Room Air 03/06/24 15:30 Room Air 03/06/24 14:50 Room Air 03/06/24 14:40 Room Air 03/06/24 14:30 Room Air 03/06/24 14:24 03/06/24 14:20 Room Air 03/06/24 09:00 Room Air 03/06/24 08:00 Room Air 03/06/24 07:32 Room Air 03/06/24 06:51 Room Air 03/06/24 04:58 Room Air 03/06/24 04:00 Room Air 03/06/24 03:00 Room Air 03/06/24 00:59 Room Air 03/05/24 23:00 Room Air 03/05/24 21:00 Room Air 03/05/24 20:00 Room Air 03/05/24 19:52 03/05/24 18:39 Room Air Intake and Output 03/06/24 03/06/24 03/06/24 07:59 15:59 23:59 Intake Total 372 / 1272 900 / 1272 Output Total 1000 / 1500 500 / 1500 Balance -628 / -228 400 / -228 Intake: Intake, Oral Amount 150 / 150 0 / 150 Intake, Total IV Amount 222 / 1122 900 / 1122 Cefepime HCl 2 gm In 0.9 % 100 / 100 Sodium Chloride 100 ml @ 200 mls/hr IV Q12H DEEPTI Rx#:[id number] Vancomycin HCl 2,000 mg In 0.9 122 / 122 % Sodium Chloride 250 ml @ 125 mls/hr IV Q12H DEEPTI Rx#:[id number] Output: Output, Urine Amount 1000 / 1500 500 / 1500 Other: Number of Unmeasured Voids 0 Weight 120.519 kg Patient Weight 03/06/24 23:59 Weight 120.519 kg Laboratory Results - last 24 hr 03/05/24 16:31: POC Glucose 145 H 03/05/24 20:27: POC Glucose 160 H 03/06/24 05:38: POC Glucose 132 H 03/06/24 06:24: WBC 8.8, RBC 3.87 L, Hgb 10.6 L, Hct 33.1 L, MCV 85.5, MCH 27.4, MCHC 32.0, RDW 18.8 H, Plt Count 251, MPV 8.7, Neut % (Auto) 66.6, Lymph % (Auto) 19.0, [place] % (Auto) 7.8, Eos % (Auto) 5.6, Baso % (Auto) 0.9, Neut # (Auto) 5.9, Lymph # (Auto) 1.7, [place] # (Auto) 0.7, Eos # (Auto) 0.5 H, Baso # (Auto) 0.1, Sodium 139, Potassium 4.4, Chloride 109 H, Carbon Dioxide 20 L, Anion Gap 14.4, BUN 23 H, Creatinine 1.00, Estimated Creat Clear 117, Estimated GFR 74, Est GFR ( Amer) 89, Glucose 135 H, Calcium 9.0, Magnesium 1.7, Total Bilirubin 0.3, AST 27, ALT 22, Alkaline Phosphatase 121, Total Protein 7.0, Albumin 3.5 D, Globulin 3.5 H, Albumin/Globulin Ratio 1.0 L 03/06/24 14:22: POC Glucose 140 H 03/06/24 17:12: POC Glucose 162 H I & O for Labs for Last 24 Hours: Intake & Output 03/03/24 03/04/24 03/05/24 03/06/24 23:59 23:59 23:59 23:59 Intake Total 2820 / 3207 1307 / 1679 1272 / 1272 Output Total 4625 / 4625 975 / 975 1500 / 1500 Balance -1805 / -1418 332 / 704 -228 / -228 Weight 122.47 kg 120.61 kg 120 kg 120.519 kg Microbiology Reports for the Last 24 Hours: Microbiology 03/06/24 07:50 Foot,Left Gram Stain - Final 03/03/24 20:20 Blood Blood Culture - Preliminary NO GROWTH AFTER 48 HOURS 03/03/24 20:10 Blood Blood Culture - Preliminary NO GROWTH AFTER 48 HOURS Constitutional: Present no acute distress, obese, chronically ill appearing and cooperative Head: Present atraumatic and normocephalic ENT: Present normal exam Neck: Present normal inspection Respiratory: Present normal respiratory effort; Absent rhonchi, wheezes or c rackles Cardiac: Present Reg Rate and Rhythm GI: Present soft and normal bowel sounds; Absent distention or tenderness Extremities: Present normal inspection and full ROM Comment:: Right [id number] amputation; left foot and Stewart wrap and bandage Skin: Present intact, erythema (Mild, left anterior burrell), dry (Flaky skin on left lower extremity) and pallor Neuro: Present Grossly Intact, alert, awake, oriented x 3 and moves all extremities Comment:: Absent sensation in left foot Assessment and Plan *Assessment and plan (1) Cellulitis of left leg: Status: Acute Category: Medical Code(s): L03.116 - Cellulitis of left lower limb (2) Osteomyelitis: Status: Acute Qualifiers: Osteomyelitis type: subacute Osteomyelitis location: foot Laterality: left Qualified Code(s): M86.272 - Subacute osteomyelitis, left ankle and foot Category: Medical Code(s): M86.9 - Osteomyelitis, unspecified (3) Chronic wound: Status: Acute Category: Medical Code(s): T14.8XXA - Other injury of unspecified body region, initial encounter (4) PAD (peripheral artery disease): Status: Acute Category: Medical Code(s): I73.9 - Peripheral vascular disease, unspecified (5) Diabetes: Status: Acute Qualifiers: Diabetes mellitus type: type 2 Diabetes mellitus [facility] insulin use: with predatory animal exterminator use Diabetes mellitus complication status: with circulatory complication Diabetes mellitus complication detail: with peripheral angiopathy without gangrene Qualified Code(s): E11.51 - Type 2 diabetes mellitus with diabetic peripheral angiopathy without gangrene; Z79.4 - predatory animal exterminator (current) use of insulin Category: Medical Code(s): E11.9 - Type 2 diabetes mellitus without complications (6) Functional paraparesis: Status: Acute Category: Medical Code(s): F44.4 - Conversion disorder with motor symptom or deficit (7) Diabetic foot infection: Status: Acute Category: Medical Code(s): E11.628 - Type 2 diabetes mellitus with other skin complications; L08.9 - Local infection of the skin and subcutaneous tissue, unspecified (8) Seizure disorder: Status: Chronic Category: Medical Code(s): G40.909 - Epilepsy, unspecified, not intractable, without status epilepticus (9) HTN (hypertension): Status: Chronic Qualifiers: Hypertension type: primary hypertension Qualified Code(s): I10 - Essential (primary) hypertension Category: Medical Code(s): I10 - Essential (primary) hypertension (10) Self-care deficit: Status: Acute Category: Medical Code(s): Z78.9 - Other specified health status (11) Obesity (BMI 30-39.9): Status: Chronic Category: Medical Code(s): E66.9 - Obesity, unspecified (12) Lumbar spinal stenosis: Status: Acute Qualifiers: Neurogenic claudication status: unspecified Qualified Code(s): M48.061 - Spinal stenosis, lumbar region without neurogenic claudication Category: Medical Code(s): M48.061 - Spinal stenosis, lumbar region without neurogenic claudication Plan 69 year old male presented to the ED for c/o LLE redness. Recently was admitted to [facility] with amputation of 3 toes. Prolonged admission for 21 days with IV antibiotics. Discharged a month ago at the beginning of January. Discussed case with ER physician, necessitating admission for IV antibiotics and further management. Medicine agreed to admit. Patient remains afebrile. Tolerating IV antibiotics. Dressing changed today. Erythema the same if not slightly better. Continue goals of care discussions. Podiatry evaluated this morning. Taken for surgery. Continues to require inpatient management. Anticipate discharge in the next day or 2. Problems addressed as follows: CELLULITIS Diabetic foot infection Metatarsal osteomyelitis -Per my review of CT from yesterday, concern for erosion of distal second metatarsal. Also positive for cellulitis. - White cell count normal at 8.8, Chronic anemia with hemoglobin 10.6 -Antibiotics transitioned to Zyvox and levofloxacin. Zyvox 600 mg twice daily, Levaquin 750 mg daily. Plan to complete 7 days of antibiotics given source control with debridement and amputation of distal metatarsal. Course can be easily transition to oral therapy for discharge. - Blood cultures obtained and pending. -- Discussed case with podiatry this morning, taken for debridement. Wound debrided well, removed distal second metatarsal. Tolerated procedure well. Repeat labs in the morning. Reevaluate wound in the morning. -I have ordered CBC, CMP, magnesium for the morning. DM -SSI insulin, FSGS ACHS -Glucose this morning 135 -A1c 6.3, well-controlled. continue long-acting insulin glargine 42 units nightly SEIZURE DISORDER PVD HTN HLD -Continue home medications aspirin 81 mg, Plavix 75 mg daily, atorvastatin 40 mg, finasteride 5mg, lamotrigine 150 mg, losartan 50 mg daily, and metoprolol 25 mg daily -Recent stenting of left lower extremity, awaiting records from [facility] to review BPH Incontinence - continue finasteride and tamsulosin 0.8mg QHS - indwelling catheter due to breakdown on sacrum and incontinence OBESITY -complicates all aspects of care FULL CODE DIABETIC DIET PLOV
[2024-03-06] MEDS: lamoTRIgine 100MG TABLET 250 MG PO (21:08)
[2024-03-06] MEDS: TAMSULOSIN 0.4MG CAPSULE 0.800000000000000044 MG PO (21:09)
[2024-03-06] MEDS: LINEZOLID 600 MG/300 ML IV.SOLN 300 MG IV (21:10)
[2024-03-06 21:27] LABS: POC Glucose,Bedside 140 (70-110)
[2024-03-06] MEDS: INSULIN GLARGINE 100 UNITS/ML 3ML FLEXPEN 42 UNIT SQ (21:39)
--- NOTE | 2024-03-06 23:11 | PC.NURSE ---
unable to pull vital signs for post op vs for 2009 and 2109. pt was on q15 vs, datascope shut off and was unable to retrieve vital signs
[2024-03-07] MEDS: MORPHINE 4MG/ML SYRINGE 4 MG IV ×3 (02:58→20:36)
[2024-03-07 04:00] VITALS: BP 135/67; PULSE 75; RESP 18; TEMP 37.3; O2SAT 96; BMI 35.9
[2024-03-07] MEDS: OXYCODONE 5MG IMMEDIATE RELEASE TABLET 5 MG PO ×3 (06:08→23:15)
[2024-03-07 06:22] LABS: POC Glucose,Bedside 135 (70-110)
--- NOTE | 2024-03-07 07:24 | PC.NURSE ---
drsg to surgical site c/d/i. a.febrile.
[2024-03-07 07:26] LABS: Basophils # 0.1 K/mm3 (0-0.2); Basophils % 0.7 % (0.1-2.0); Eosinophils # 0.2 K/mm3 (0.0-0.4); Eosinophils % 2.1 % (0.1-12.0); Hematocrit 31.4 % (42.0-52.0); Lymphocytes # 1.3 K/mm3 (0.7-4.5); Lymphocytes % 14.7 % (10-50); Mean Corpuscular HGB Conc 31.8 g/dL (31.8-35.4); Mean Corpuscular Hemoglobin 27.6 pg (27.0-31.2); Mean Corpuscular Volume 86.9 fl (80-94); Mean Platelet Volume 8.7 fl (7.4-10.4); Monocytes # 0.6 K/mm3 (0.1-1.0); Monocytes % 6.4 % (1.7-9.3); Neutrophils # 6.8 K/mm3 (1.8-7.8); Neutrophils % 76.1 % (37.0-80.0); Platelet Count 229 K/mm3 (142-424); Red Blood Count 3.61 M/mm3 (4.60-6.20); Red Cell Distribution Width 18.6 % (11.5-17.5); White Blood Count 8.9 K/mm3 (4.8-10.8)
[2024-03-07 07:31] LABS: Chloride 105 mmol/L (98-107); Potassium 4.5 mmoL/L (3.5-5.1); Sodium 137 mmol/L (136-145)
[2024-03-07 07:33] LABS: Alanine Aminotransferase 19 U/L (12-78); Aspartate Amino Transferase 21 U/L (17-59); Blood Urea Nitrogen 20 mg/dl (9-20); Creatinine Clearance Estimated 117 mL/min (50-200); Estimated Glomerular Filt Rate 74 ml/min (>60); GFR (African American) 89 ML/MIN (>60)
[2024-03-07 07:34] LABS: Albumin Level 3.3 g/dl (3.5-5.0); Alkaline Phosphatase 106 U/L (38-126); Anion Gap 10.5 mEq/L (5-15); Calcium 8.8 mg/dl (8.4-10.2); Carbon Dioxide 26 mmol/L (22.0-30.0); Globulin 3.2 g/dL (1.3-3.2); Glucose 111 mg/dl (74-100); Total Protein,Serum 6.5 g/dl (6.3-8.2)
[2024-03-07 07:58] LABS: Bilirubin,Total 0.1 mg/dl (0.2-1.3)
--- NOTE | 2024-03-07 07:58 | EXP.ORTH.PN ---
Subjective *Date: 03/07/24 *Time: 08:17 Interval history: Patient is resting comfortably in bed. Reports mild pain to the left foot. Denies N/V, F/C, SOB/CP. Left foot dressing clean dry and intact. Overall patient seems to be in good spirits and reiterates he would like to go home with home health care and not to a SNF. Ortho Exam (Inpt) Vital signs and Labs for Last 24 Hours: Temp Pulse Resp BP Pulse Ox O2 Del Method 99.1 F 75 18 135/67 96 Room Air 03/07/24 04:00 03/07/24 04:00 03/07/24 04:00 03/07/24 04:00 03/07/24 04:00 03/07/24 05:00 Laboratory Results - last 24 hr 03/06/24 14:22: POC Glucose 140 H 03/06/24 17:12: POC Glucose 162 H 03/06/24 21:13: POC Glucose 140 H 03/07/24 05:59: POC Glucose 135 H 03/07/24 06:52: WBC 8.9, RBC 3.61 L, Hgb 10.0 L, Hct 31.4 L, MCV 86.9, MCH 27.6, MCHC 31.8, RDW 18.6 H, Plt Count 229, MPV 8.7, Neut % (Auto) 76.1, Lymph % (Auto) 14.7, [place] % (Auto) 6.4, Eos % (Auto) 2.1, Baso % (Auto) 0.7, Neut # (Auto) 6.8, Lymph # (Auto) 1.3, [place] # (Auto) 0.6, Eos # (Auto) 0.2, Baso # (Auto) 0.1, Sodium 137, Potassium 4.5, Chloride 105, Carbon Dioxide 26, Anion Gap 10.5, BUN 20, Creatinine 1.00, Estimated Creat Clear 117, Estimated GFR 74, Est GFR ( Amer) 89, Glucose 111 H, Calcium 8.8, Total Bilirubin 0.1 L, AST 21, ALT 19, Alkaline Phosphatase 106, Total Protein 6.5, Albumin 3.3 L, Globulin 3.2, Albumin/Globulin Ratio 1.0 L I & O for Labs for Last 24 Hours: Intake & Output 06/03/05/24 03/06/24 03/07/24 11:59 11:59 11:59 11:59 Intake Total 1680 / 1680 1907 / 1907 912 / 912 1140 / 1140 Output Total 5 / 5 3525 / 3525 1500 / 1500 450 / 450 Balance -395 / -395 -1618 / -1618 -588 / -588 690 / 690 Weight 265 lb 14.4 oz 265 lb 14.4 oz 265 lb 11.2 oz 265 lb 11.2 oz Microbiology Reports for the Last 24 Hours: Microbiology 03/06/24 07:50 Foot,Left Gram Stain - Final Constitutional: Present no acute distress and obese Head: Present normocephalic Eyes: Present as per HPI ENT: Present normal exam Neck: Present normal inspection Respiratory: Present able to speak in complete sentences Cardiac: Present posterior tibial pulses present and pedal pulses present GI: Present soft Rectal (male): Present deferred (male): Present deferred Extremities: Present edema; Absent calf tenderness Comment:: Right AKA Skin: Present erythema and wounds Comment:: Left previous 2-3rd toe amputation skin revision with excision of wound. Sutures clean dry and intact to site. Some mild dusky bruising to the proximal 2nd met incision. No purulence, malodor or new drainage. Left anterior distal leg wound: 100% granular, 3 x 2 x 0.1 cm. Left anterior medial distal leg wound: 100% granular, 2.7 x 2.5 x 0.1 cm. Left heel wound: 100% granular, 0.5 x 0.6 x 0.1 cm. Overall edema and erythema have improved. Neuro: Present Motor Function Intact, oriented x 3 and moves all extremities Ankle: left: erythema (improving) and left: wound (see above, skin) Feet/Toes: left: erythema (improving), left: hammer toe (4-5th digits), left: nail abnormalities, left: onychomycosis and left: wound (L heel, anterior and anterior medial burrell) and bilateral: amputation (R AKA, L 2-3rd toes, partial 2nd metatarsal) Assessment and Plan *Assessment and plan (1) Diabetic foot infection: Status: Acute Category: Medical Code(s): E11.628 - Type 2 diabetes mellitus with other skin complications; L08.9 - Local infection of the skin and subcutaneous tissue, unspecified (2) Cellulitis of left leg: Status: Acute Category: Medical Code(s): L03.116 - Cellulitis of left lower limb (3) PAD (peripheral artery disease): Status: Acute Category: Medical Code(s): I73.9 - Peripheral vascular disease, unspecified (4) Diabetic ulcer of left foot: Status: Acute Qualifiers: Diabetes mellitus type: type 2 Diabetic foot ulcer location: heel Non-pressure ulcer stage: with fat layer exposed Qualified Code(s): E11.621 - Type 2 diabetes mellitus with foot ulcer; L97.422 - Non-pressure chronic ulcer of left heel and midfoot with fat layer exposed Category: Medical Code(s): E11.621 - Type 2 diabetes mellitus with foot ulcer; L97.529 - Non-pressure chronic ulcer of other part of left foot with unspecified severity (5) Infection of toe as complication of amputation: Status: Acute Category: Medical Code(s): T87.40 - Infection of amputation stump, unspecified extremity (6) Right above-knee amputee: Status: Acute Category: Medical Code(s): Z89.611 - Acquired absence of right leg above knee Plan Left DFU, cellulitis: -hx L 2-3rd toe amp in January [address] hospital stay at [facility] with ID consults, LLE stenting 03/06/24: Left leg WCx: pending Surgery, 03/06/24: s/p Left 2nd partial metatarsal amputation, revision of prior amp site/wound dehiscence with derotational skin flap, Left heel wound debridement, Left leg wound debridement x 2, Flash antibiotic beads Intraop Specimens: Left toe amputation tissue culture: pending Left second metatarsal bone culture: pending Left second metatarsal proximal margin: pending 03/07/24: POD #1 -patient seen and evaluated at bedside by myself -no debridement today -labs and WCx reviewed: still pending -xeroform applied to 2-3rd toe amp, betadine soaked gauze, DSD applied -continue Zyvox, Levo as directed per Dr Coto -patient lives alone: refusing SNF -has HHC 2x weekly for dressing changes -discussed continuing IV abx via PICC vs oral abx at time of discharge -Dr Coto: Zyvox 600 mg twice daily, Levaquin 750 mg daily x7d -given his high risk for recurrent infection and hx of amp (R AKA, L 2-3rd toe, and now distal 2nd metatarsal), change of recurrence, need for LLE limb salvage: rec PICC, IV abx -if patient can get PICC, IV abx x7d then transition to 7d of the same oral abx, that would be preferable. However, patient was just at [facility] for 21 days and ID discharged him with no IV abx. Given his surgery yesterday, argument could be made for d/c with oral abx. -okay to change dressing if needed for strike thru (betadine soaked 4x4s, dry 4x4s, Kerlix, abd pad, Stewart bandage). *Stable from Podiatry stand point for discharge home once HHC and abx are arranged (first dressing change on 03/09 or 03/10/24). Podiatry HH Orders: Patient is to maintain dressing clean dry and intact. Plan for dressing changes every 2-3 days per HHC nurse. Dressing: betadine soaked 4x4s to wounds/sutures, dry 4x4s, [place]/Kerlix, secure with Stewart bandage. Off load heel on pillow to avoid further heel wound breakdown. Needs to continue antibiotics. Recommend PICC, IV antibiotics: Zyvox 600 mg twice daily, Levaquin 750 mg daily x7d then transition to 7d of the same oral abx. If discharged with no PICC, recommend 14d of oral abx. Non weight bearing to the left lower extremity with DME assistance (wheelchair). Follow-up in 1-2 weeks outpatient with Podiatry for dressing change.
[2024-03-07 08:00] VITALS: BP 157/78; PULSE 83; RESP 20; TEMP 36.6; O2SAT 95
[2024-03-07] MEDS: BACLOFEN 10MG TABLET 10 MG PO ×2 (08:07→20:31)
[2024-03-07] MEDS: DOCUSATE SODIUM 250MG CAPSULE 250 MG PO ×2 (08:07→20:32)
[2024-03-07] MEDS: METOPROLOL SUCCINATE XL 25MG TABLET 25 MG PO (08:07)
[2024-03-07] MEDS: LINEZOLID 600 MG/300 ML IV.SOLN 300 MG IV ×2 (08:07→20:34)
[2024-03-07] MEDS: FERROUS SULFATE 325MG TABLET 325 MG PO (08:07)
[2024-03-07] MEDS: ASPIRIN EC 81MG TABLET 81 MG PO (08:07)
[2024-03-07] MEDS: PANTOPRAZOLE 40MG TABLET 40 MG PO (08:07)
[2024-03-07] MEDS: IRBESARTAN 75MG TABLET 75 MG PO (08:08)
[2024-03-07] MEDS: CLOPIDOGREL 75MG TAB 75 MG PO (08:08)
[2024-03-07] MEDS: FINASTERIDE 5MG TABLET 5 MG PO (08:08)
[2024-03-07] MEDS: MAGNESIUM OXIDE 400MG TABLET 400 MG PO (08:08)
[2024-03-07] MEDS: ATORVASTATIN 40MG TABLET 40 MG PO (08:08)
[2024-03-07] MEDS: GABAPENTIN 100MG CAPSULE 200 MG PO ×3 (08:09→20:32)
[2024-03-07] MEDS: ENOXAPARIN 40MG/0.4ML SYRINGE 40 MG SQ (08:10)
[2024-03-07] MEDS: NYSTATIN TOPICAL POWDER 30GM TP ×4 (08:10→20:34)
[2024-03-07] MEDS: lamoTRIgine 100MG TABLET 100 MG PO (08:11)
[2024-03-07] MEDS: FUROSEMIDE 40 MG TABLET PO (08:26)
[2024-03-07] MEDS: ONDANSETRON 4MG/2ML VIAL 4 MG IV ×2 (09:27→21:07)
[2024-03-07 10:05] LABS: POC Glucose,Bedside 110 (70-110)
--- NOTE | 2024-03-07 10:06 | HMH.PTWOUND ---
Rehab Inpt Wound Evaluation Rehab IP Wound Evaluation Start: 03/04/24 00:36 Freq: ONCE Status: Active Protocol: Document 03/07/24 09:58 JOSE CRUZ (Rec: 03/07/24 10:05 PHOCOLE [id number]) Rehab PT Wound Assessment Subjective Subjective [address] [facility] with L LE cellulitis. He had a recent amputation of 2 toes at an outside facility and a long hx of prior R BKA. He lives alone at baseline and is generally bedbound and immobile. He states, I just stay in the bed all the time, I just can't use a sliding board, I'm afraid I'm going to fall off of it. He also presents with a pressure injury to the R buttock upon adm. He underwent further L foot toe amputations and I&D on 03/06. Wound Right Buttock Wound Type Pressure Ulcer Is This a Chronic Wound Yes Wound Staging Stage II Query Text:Stage I - Unbroken, red skin, no blanching. Stage II - Skin broken, superficial skin loss involving epidermis alone or also dermis. Partial loss of skin layers. Stage III - Pressure area involves epidermis, dermis and subcutaneous tissue, full thickness skin loss. Stage IV - Pressure area involves epidermis, subcutaneous tissue, bone and other supportive tissue. Full thickness skin loss with extensive destruction of underlying tissue and structures. Wound Length (cm) 1.5 Wound Width (cm) 0.7 Wound Bed Appearance [place] Wound Margins Description Well Defined Surrounding Tissue Appearance [place] Primary Dressing Composite Dressing Change Patient Tolerance Tolerated Well Plan/Recommendation Comment Currently nursing staff is performing appropriate dressing changes and pressure relief. No current need for debridement of the R buttock PI. Will defer care to nursing at this time. Thank you for involving the wound care team in the care of this patient. Eval Complexity Eval Charge Codes 60399 - High Complexity PHYSICIAN CERTIFICATION: I certify the specified therapy services for Vitaly Pool are required, authorized, and reviewed every 30 days.
--- NOTE | 2024-03-07 10:50 | SW/DCPLANNER ---
Addendum entered by Bethany Campuzano 03/08/24 13:51: Héctor stated that services will resume for this patient. Addendum entered by Bethany [place] 03/08/24 11:26: Patient information/order has been faxed to Héctor w/ [facility]. I will follow up w/ Héctor once information is reviewed. Patient is planned to discharge home today. Original Note: The plan for this patient is to discharge home tomorrow w/ oral antibiotics and dressing changes per MD. Patient stated that he is not interested in placement at this time. Patient is currently established w/ [facility] and I will set up for services to resume at time of discharge.
[2024-03-07] MEDS: LEVOFLOXACIN/D5W 750 MG/150 ML 750 MG/150 ML PIGGYBACK 100 MG IV (10:57)
--- NOTE | 2024-03-07 13:56 | HMH.OTEV ---
OT Inpatient Evaluation Rehab OT IP Evaluation Start: 03/07/24 10:06 Freq: ONCE Status: Active Protocol: Document 03/07/24 09:00 ESTHER (Rec: 03/07/24 13:56 [facility] [id number]) Rehab OT IP Assessment Subjective History Pt is a 69 yr old male, admitted on Patient was admitted on 03/03/24. Pt had his right leg amputated below the knee in the distant past. Developed problems with the left foot was seen at [facility] [place] in [place] and had 2 toes amputated. Cellulitis and infection continued in the left extremity he actually stated he was in [facility] for 21 days on IV antibiotics. He did not want to go back to [facility] wanted to be treated here. Also was requesting help to determine to be on comfort care and be able to stay in his own home. PLOF: Pt reported they live alone but have a aide and neighbor that helps them complete ADLs and IADLs. Aide is there 12-4 PM everyday. Nursing also comes twice a week. Sister also comes to assist and brings groceries for pt. Pt reports they have no protheses . Pt reports they have a lift, bedside commode, shower chair , and hospital bed. Pt reports once they a hoyered into w/c they are able to complete functional mobility. Pt reports they have a ramp to enter home. Pt reports for dressing and bathing they can complete to waist level before needing assist. Pt reports they have life alert. Pt reprots they are able to change brief if needed while supine in bed without assit. Subjective I am not going to another one . Pt was supine in bed when therapy arrived this afternoon . Pt agreed to participate in initial OT eval this afternoon . Pt agreed to sit on EOB. Pt went from supine to EOB with Min Assist. Pt reported they felt a little dizzy intitially while at EOB. Pt was able to hold static sitting balance with SBA for ~4 minutes while therapy asked questions about PLOF and discharge plan. Pt reported they would lie back down. Pt went from EOB to supine with CGA. Pt was left with call light and all other needs within reach while supine in bed. Objective Patient Orientation Person,Patient Baseline, Situation Right Upper Extremity Gross ROM WFL Left Upper Extremity Gross ROM WFL Shoulder ROM Limitations Muscle Weakness Elbow ROM Limitations Muscle Weakness Wrist Limitations of Range of Motion Muscle Weakness Bed Mobility bed mobility-scooting,bed mobility - supine/sit Assist Level Contact Guard/Hand Hold Decrease in Endurance Yes Rehab OT IP prob,goals,plan Problems Date of Evaluation: 03/07/24 OT IP Problems Bed Mobility,Transfers,Balance ,Self care,Safety Rehab Potential Rehab Potential Innapropriate for Skilled Therapy Discharge Plan OT Discharge Plan At this time, pt is at baseline and does not require to be seen while at this facility for skilled OT services to address occupational performance areas . Pt could benefit from home health services for safety, endurance, and transfer training as pt reports they have previously had HH and have the equipment at home to practice with. All pending medical status and dr. ryan. Jodyal Complexity Eval Charge Codes 99901 - Moderate Complexity PHYSICIAN CERTIFICATION: I certify the specified therapy services for Vitaly Pool are required, authorized, and reviewed every 30 days.
[2024-03-07 16:00] VITALS: BP 98/66; PULSE 74; RESP 20; TEMP 36.7; O2SAT 98
[2024-03-07 16:04] LABS: POC Glucose,Bedside 100 (70-110)
--- NOTE | 2024-03-07 16:16 | EXP.PN ---
Subjective *Date: 03/07/24 *Time: 16:16 Interval history: patient is seen at bedside, he denied Chest pain, SOB, N.V, appears comfortable in bed Exam Data for Last 24 hours Vital signs and Labs for Last 24 Hours: Temp Pulse Resp BP Pulse Ox O2 Del Method 98 F 83 20 157/78 H 95 Room Air 03/07/24 08:00 03/07/24 08:00 03/07/24 08:00 03/07/24 08:00 03/07/24 08:00 03/07/24 13:47 Laboratory Results - last 24 hr 03/06/24 17:12: POC Glucose 162 H 03/06/24 21:13: POC Glucose 140 H 03/07/24 05:59: POC Glucose 135 H 03/07/24 06:52: WBC 8.9, RBC 3.61 L, Hgb 10.0 L, Hct 31.4 L, MCV 86.9, MCH 27.6, MCHC 31.8, RDW 18.6 H, Plt Count 229, MPV 8.7, Neut % (Auto) 76.1, Lymph % (Auto) 14.7, Power % (Auto) 6.4, Eos % (Auto) 2.1, Baso % (Auto) 0.7, Neut # (Auto) 6.8, Lymph # (Auto) 1.3, Power # (Auto) 0.6, Eos # (Auto) 0.2, Baso # (Auto) 0.1, Sodium 137, Potassium 4.5, Chloride 105, Carbon Dioxide 26, Anion Gap 10.5, BUN 20, Creatinine 1.00, Estimated Creat Clear 117, Estimated GFR 74, Est GFR ( Amer) 89, Glucose 111 H, Calcium 8.8, Total Bilirubin 0.1 L, AST 21, ALT 19, Alkaline Phosphatase 106, Total Protein 6.5, Albumin 3.3 L, Globulin 3.2, Albumin/Globulin Ratio 1.0 L 03/07/24 09:58: POC Glucose 110 03/07/24 15:57: POC Glucose 100 I & O for Last 24 hours: Intake & Output 03/04/24 03/05/24 03/06/24 03/07/24 23:59 23:59 23:59 23:59 Intake Total 2820 / 3207 1307 / 1679 1512 / 1512 1170 / 1170 Output Total 4625 / 4625 975 / 975 1500 / 1950 1050 / 1050 Balance -1805 / -1418 332 / 704 12 / -438 120 / 120 Weight 120.61 kg 120 kg 120.519 kg 120.519 kg Microbiology Reports for the Last 24 Hours: Microbiology 03/06/24 Unknown Toe,Left Second Surgical Biopsy Culture - Preliminary NO GROWTH AFTER 24 HOURS 03/06/24 07:50 Foot,Left Gram Stain - Final 03/06/24 07:50 Foot,Left Wound Culture - Preliminary Constitutional Constitutional: no acute distress *Routine HEENT Exam Head: Present normocephalic Eye: Present EOMI and PERRL ENT: Present mucous membranes moist *Routine Neck Exam Neck: Present supple; Absent lymphadenopathy *Routine Respiratory Exam Respiratory: Present CTA bilaterally *Routine Cardiovascular Exam Cardiovascular: Present RRR *Routine Abdominal Exam Abdominal: Present soft and normoactive bowel sounds; Absent tenderness *Routine Extremities Exam Extremities: Absent cyanosis, clubbing or edema Comments: left leg is covered in dressing, has R knee amputation *Routine Skin Exam Skin: Present warm; Absent rash *Routine Neurological Exam Neurological: Present alert and oriented X3 Assessment and Plan *Assessment and plan (1) Cellulitis of left leg: Status: Acute Category: Medical Code(s): L03.116 - Cellulitis of left lower limb (2) Osteomyelitis: Status: Acute Qualifiers: Osteomyelitis type: subacute Osteomyelitis location: foot Laterality: left Qualified Code(s): M86.272 - Subacute osteomyelitis, left ankle and foot Category: Medical Code(s): M86.9 - Osteomyelitis, unspecified (3) Chronic wound: Status: Acute Category: Medical Code(s): T14.8XXA - Other injury of unspecified body region, initial encounter (4) PAD (peripheral artery disease): Status: Acute Category: Medical Code(s): I73.9 - Peripheral vascular disease, unspecified (5) Diabetes: Status: Acute Qualifiers: Diabetes mellitus type: type 2 Diabetes mellitus senior living insulin use: with superintendent terminal use Diabetes mellitus complication status: with circulatory complication Diabetes mellitus complication detail: with peripheral angiopathy without gangrene Qualified Code(s): E11.51 - Type 2 diabetes mellitus with diabetic peripheral angiopathy without gangrene; Z79.4 - USP (current) use of insulin Category: Medical Code(s): E11.9 - Type 2 diabetes mellitus without complications (6) Functional paraparesis: Status: Acute Category: Medical Code(s): F44.4 - Conversion disorder with motor symptom or deficit (7) Diabetic foot infection: Status: Acute Category: Medical Code(s): E11.628 - Type 2 diabetes mellitus with other skin complications; L08.9 - Local infection of the skin and subcutaneous tissue, unspecified (8) Seizure disorder: Status: Chronic Category: Medical Code(s): G40.909 - Epilepsy, unspecified, not intractable, without status epilepticus (9) HTN (hypertension): Status: Chronic Qualifiers: Hypertension type: primary hypertension Qualified Code(s): I10 - Essential (primary) hypertension Category: Medical Code(s): I10 - Essential (primary) hypertension (10) Self-care deficit: Status: Acute Category: Medical Code(s): Z78.9 - Other specified health status (11) Obesity (BMI 30-39.9): Status: Chronic Category: Medical Code(s): E66.9 - Obesity, unspecified (12) Lumbar spinal stenosis: Status: Acute Qualifiers: Neurogenic claudication status: unspecified Qualified Code(s): M48.061 - Spinal stenosis, lumbar region without neurogenic claudication Category: Medical Code(s): M48.061 - Spinal stenosis, lumbar region without neurogenic claudication Plan 69 year old male presented to the ED for c/o LLE redness. Recently was admitted to [facility] with amputation of 3 toes. Prolonged admission for 21 days with IV antibiotics. Discharged a month ago at the beginning of January. Discussed case with ER physician, necessitating admission for IV antibiotics and further management. Medicine agreed to admit. Patient remains afebrile. Tolerating IV antibiotics. Dressing changed today. Erythema the same if not slightly better. Continue goals of care discussions. Podiatry evaluated this morning. Taken for surgery. Continues to require inpatient management. Anticipate discharge in the next day or 2. Problems addressed as follows: CELLULITIS Diabetic foot infection Metatarsal osteomyelitis -continue IV abx while inpatient, Zyvox 600 mg twice daily, Levaquin 750 mg daily. - Blood cultures obtained and pending. -- podiatry following DM -SSI insulin, FSGS ACHS -Glucose this morning 135 -A1c 6.3, well-controlled. continue long-acting insulin glargine 42 units nightly SEIZURE DISORDER PVD HTN HLD -Continue home medications aspirin 81 mg, Plavix 75 mg daily, atorvastatin 40 mg, finasteride 5mg, lamotrigine 150 mg, losartan 50 mg daily, and metoprolol 25 mg daily -Recent stenting of left lower extremity BPH Incontinence - continue finasteride and tamsulosin 0.8mg QHS - indwelling catheter due to breakdown on sacrum and incontinence OBESITY -complicates all aspects of care FULL CODE DIABETIC DIET plan to continue IV abx today and consult PT/OT, likely dc tomorrow
--- NOTE | 2024-03-07 16:24 | PC.NURSE ---
Aox 4, turn every two hours, 90's on RA, fsbg achs, f/c, bed bound, pain pill given once, 20g L W sl, PT AND OT consulted.
[2024-03-07 20:00] VITALS: BP 118/60; PULSE 78; RESP 16; TEMP 36.7; O2SAT 95
[2024-03-07 20:30] LABS: POC Glucose,Bedside 89 (70-110)
[2024-03-07] MEDS: lamoTRIgine 100MG TABLET 250 MG PO (20:33)
[2024-03-07] MEDS: TAMSULOSIN 0.4MG CAPSULE 0.800000000000000044 MG PO (20:34)
[2024-03-08] MEDS: ONDANSETRON 4MG/2ML VIAL 4 MG IV ×3 (03:58→18:14)
[2024-03-08 04:00] VITALS: BP 105/56; PULSE 75; RESP 16; TEMP 36.8; O2SAT 97; BMI 35.4
--- NOTE | 2024-03-08 05:36 | PC.NURSE ---
pt reports continuous nausea, treated pe mar with antiemetics. pt cont to report pain, trreated per mar, beverly on surgical foot c/d/i
[2024-03-08] MEDS: MORPHINE 4MG/ML SYRINGE 4 MG IV ×2 (06:19→12:11)
[2024-03-08] MEDS: OXYCODONE 5MG IMMEDIATE RELEASE TABLET 5 MG PO (06:19)
[2024-03-08 06:43] LABS: POC Glucose,Bedside 115 (70-110)
[2024-03-08 07:25] VITALS: BP 123/61; PULSE 58; RESP 19; TEMP 36.6; O2SAT 95
--- NOTE | 2024-03-08 08:33 | HMH.PTEV ---
Physical Therapy Evaluation Rehab PT IP Evaluation Start: 03/07/24 10:06 Freq: ONCE Status: Active Protocol: Document 03/08/24 08:31 LUIS (Rec: 03/08/24 08:33 LUIS [id number]) Subjective/History History History Per H&P: Mr. Chairez is an 79-year-old male with significant CAD and tobacco use history. He has been having angina and had an abnormal Myoview. Concern for CAD. Patient was brought in for elective left heart cath today due to his symptoms and risk factors. Left heart cath performed showing left main disease. Patient tolerated procedure well but given location of stent placement, patient's comorbidities, and contrast load, cardiology consulted medicine for admission and monitoring overnight with gentle hydration. Medicine agreed to admit for further management. Subjective Subjective Pt lives alone in a home with ramped entrance. Pt has family and staff that checks in on him daily. Private Equity Analyst comes by 12-4 daily to assist with transfers and ADLs. Pt was a mia lift at baseline, using a w/c (IND with w/c mobility), and sleeping in a hospital bed. New diagnosis of cancer in past 12 No months? Rehab PT IP Eval Objective Appearance Patient Behavior Appropriate,Cooperative Patient Orientation Person,Situation Difficulty following instructions none Speech Pattern Clear Ambulation Patient Able to Ambulate No Balance Ability to Arise Able, uses arms to help Sitting Balance Steady, safe Transfers Bed Transfer Ability Supervision/Stand by,Contact Guard/Hand Hold Rehab PT IP prob,goals,plan Problems Date of Evaluation: 03/07/24 Rehab Potential Rehab Potential Innapropriate for Skilled Therapy Discharge Plan PT Discharge Plan Pt safe to d/c home when deemed medically necessary d/t current level of mobility being at baseline, home set-up , available equipment, and family/caregiver support. Pt not appropriate for skilled acute care PT at this time d/t pt?s mobility being at baseline. Eval Complexity Eval Charge Codes 68015 - High Complexity PHYSICIAN CERTIFICATION: I certify the specified therapy services for Vitaly Shipmanroverto are required, authorized, and reviewed every 30 days.
[2024-03-08] MEDS: LINEZOLID 600 MG/300 ML IV.SOLN 300 MG IV (08:48)
[2024-03-08] MEDS: FINASTERIDE 5MG TABLET 5 MG PO (08:49)
[2024-03-08] MEDS: IRBESARTAN 75MG TABLET 75 MG PO (08:49)
[2024-03-08] MEDS: DOCUSATE SODIUM 250MG CAPSULE 250 MG PO (08:50)
[2024-03-08] MEDS: MAGNESIUM OXIDE 400MG TABLET 400 MG PO (08:50)
[2024-03-08] MEDS: FERROUS SULFATE 325MG TABLET 325 MG PO (08:51)
[2024-03-08] MEDS: FUROSEMIDE 40 MG TABLET PO (08:51)
[2024-03-08] MEDS: PANTOPRAZOLE 40MG TABLET 40 MG PO (08:51)
[2024-03-08] MEDS: METOPROLOL SUCCINATE XL 25MG TABLET 25 MG PO (08:52)
[2024-03-08] MEDS: CLOPIDOGREL 75MG TAB 75 MG PO (08:52)
[2024-03-08] MEDS: ENOXAPARIN 40MG/0.4ML SYRINGE 40 MG SQ (08:53)
[2024-03-08] MEDS: ATORVASTATIN 40MG TABLET 40 MG PO (08:53)
[2024-03-08] MEDS: lamoTRIgine 100MG TABLET 100 MG PO (08:53)
[2024-03-08] MEDS: ASPIRIN EC 81MG TABLET 81 MG PO (08:53)
[2024-03-08] MEDS: BACLOFEN 10MG TABLET 10 MG PO (08:53)
[2024-03-08] MEDS: NYSTATIN TOPICAL POWDER 30GM TP (08:54)
[2024-03-08] MEDS: GABAPENTIN 100MG CAPSULE 200 MG PO ×2 (08:54→12:05)
[2024-03-08 10:48] LABS: Basophils # 0.1 K/mm3 (0-0.2); Basophils % 0.6 % (0.1-2.0); Eosinophils # 0.6 K/mm3 (0.0-0.4); Eosinophils % 6.2 % (0.1-12.0); Hematocrit 31.1 % (42.0-52.0); Hemoglobin 10.1 g/dL (14.1-18.0); Lymphocytes # 1.5 K/mm3 (0.7-4.5); Lymphocytes % 15.1 % (10-50); Mean Corpuscular HGB Conc 32.5 g/dL (31.8-35.4); Mean Corpuscular Hemoglobin 27.7 pg (27.0-31.2); Mean Corpuscular Volume 85.3 fl (80-94); Mean Platelet Volume 8.6 fl (7.4-10.4); Monocytes # 0.6 K/mm3 (0.1-1.0); Monocytes % 6.2 % (1.7-9.3); Neutrophils % 71.9 % (37.0-80.0); Platelet Count 234 K/mm3 (142-424); Red Blood Count 3.64 M/mm3 (4.60-6.20); Red Cell Distribution Width 18.4 % (11.5-17.5); White Blood Count 9.7 K/mm3 (4.8-10.8)
[2024-03-08 10:51] LABS: Chloride 102 mmol/L (98-107)
[2024-03-08 10:52] LABS: Potassium 4.2 mmoL/L (3.5-5.1); Sodium 134 mmol/L (136-145)
[2024-03-08 10:54] LABS: Blood Urea Nitrogen 17 mg/dl (9-20); Creatinine Clearance Estimated 115 mL/min (50-200); Estimated Glomerular Filt Rate 74 ml/min (>60); GFR (African American) 89 ML/MIN (>60)
[2024-03-08 10:55] LABS: Anion Gap 11.2 mEq/L (5-15); Calcium 8.6 mg/dl (8.4-10.2); Carbon Dioxide 25 mmol/L (22.0-30.0); Glucose 136 mg/dl (74-100)
[2024-03-08 11:00] LABS: C-Reactive Protein 39.2 mg/L (0-4)
--- NOTE | 2024-03-08 11:09 | P.PN_ITS ---
Subjective *Date: 03/08/24 *Time: 13:51 Interval history: Patient is resting comfortably in bed. Reports mild cramping/spasm to the left foot. No calf pain. Denies F/C, SOB/CP. Reports some nausea. Hx of chronic GI issues. Asking about a colonscopy-will defer to Hospitalist. Left foot dressing clean dry and intact. Overall patient seems to be in good spirits and reiterates he would like to go home with home health care and not to a SNF. Ortho Exam (Inpt) Vital signs and Labs for Last 24 Hours: Temp Pulse Resp BP Pulse Ox O2 Del Method 97.9 F 58 L 19 123/61 95 Room Air 03/08/24 07:25 03/08/24 07:25 03/08/24 07:25 03/08/24 07:25 03/08/24 07:25 03/08/24 09:00 Laboratory Results - last 24 hr 03/07/24 15:57: POC Glucose 100 03/07/24 20:19: POC Glucose 89 03/08/24 06:24: POC Glucose 115 H 03/08/24 10:10: Sodium 134 L, Potassium 4.2, Chloride 102, Carbon Dioxide 25, Anion Gap 11.2, BUN 17, Creatinine 1.00, Estimated Creat Clear 115, Estimated GFR 74, Est GFR ( Amer) 89, Glucose 136 H, Calcium 8.6, C-Reactive Protein 39.2 H I & O for Labs for Last 24 Hours: Intake & Output 03/05/24 03/06/24 03/07/24 03/08/24 11:59 11:59 11:59 11:59 Intake Total 1907 / 1907 912 / 912 1950 / 1950 990 / 990 Output Total 3525 / 3525 1500 / 1500 1050 / 1050 1750 / 1750 Balance -1618 / -1618 -588 / -588 900 / 900 -760 / -760 Weight 265 lb 14.4 oz 265 lb 11.2 oz 265 lb 11.2 oz 261 lb 6 oz Microbiology Reports for the Last 24 Hours: Microbiology 03/06/24 07:50 Foot,Left Gram Stain - Final 03/06/24 07:50 Foot,Left Wound Culture - Preliminary Gram Positive Cocci 03/03/24 20:20 Blood Blood Culture - Preliminary NO GROWTH AFTER 4 DAYS 03/03/24 20:10 Blood Blood Culture - Preliminary NO GROWTH AFTER 4 DAYS 03/06/24 Unknown Toe,Left Second Surgical Biopsy Culture - Preliminary NO GROWTH AFTER 24 HOURS Constitutional: Present no acute distress and obese Head: Present normocephalic Eyes: Present as per HPI ENT: Present normal exam Neck: Present normal inspection Respiratory: Present able to speak in complete sentences Cardiac: Present posterior tibial pulses present and pedal pulses present GI: Present soft Rectal (male): Present deferred (male): Present deferred Extremities: Present edema; Absent calf tenderness Comment:: Right AKA Skin: Present erythema and wounds Comment:: Left previous 2-3rd toe amputation skin revision with excision of wound. Sutures clean dry and intact to site. Some dusky bruising to the proximal 2nd met incision. No purulence, malodor or new drainage. Left anterior distal leg wound: 100% granular, 3 x 2 x 0.1 cm. Left anterior medial distal leg wound: 100% granular, 2.7 x 2.5 x 0.1 cm. Left heel wound: 100% granular, 0.4 x 0.4 x 0.1 cm. Overall edema and erythema have improved. Neuro: Present Motor Function Intact, oriented x 3 and moves all extremities Ankle: left: erythema (improving) and left: wound (see above, skin) Feet/Toes: left: erythema (improving), left: hammer toe (4-5th digits), left: nail abnormalities, left: onychomycosis and left: wound (L heel, anterior and anterior medial burrell) and bilateral: amputation (R AKA, L 2-3rd toes, partial 2nd metatarsal) Assessment and Plan *Assessment and plan (1) Diabetic foot infection: Status: Acute Category: Medical Code(s): E11.628 - Type 2 diabetes mellitus with other skin complications; L08.9 - Local infection of the skin and subcutaneous tissue, unspecified (2) Cellulitis of left leg: Status: Acute Category: Medical Code(s): L03.116 - Cellulitis of left lower limb (3) PAD (peripheral artery disease): Status: Acute Category: Medical Code(s): I73.9 - Peripheral vascular disease, unspecified (4) Diabetic ulcer of left foot: Status: Acute Qualifiers: Diabetes mellitus type: type 2 Diabetic foot ulcer location: heel Non- pressure ulcer stage: with fat layer exposed Qualified Code(s): E11.621 - Type 2 diabetes mellitus with foot ulcer; L97.422 - Non-pressure chronic ulcer of left heel and midfoot with fat layer exposed Category: Medical Code(s): E11.621 - Type 2 diabetes mellitus with foot ulcer; L97.529 - Non-pressure chronic ulcer of other part of left foot with unspecified severity (5) Infection of toe as complication of amputation: Status: Acute Category: Medical Code(s): T87.40 - Infection of amputation stump, unspecified extremity (6) Right above-knee amputee: Status: Acute Category: Medical Code(s): Z89.611 - Acquired absence of right leg above knee Plan Left DFU, cellulitis: -hx L 2-3rd toe amp in January [address] [facility] -[address]d [address] stay [address] [facility] with ID consults, LLE stenting 03/06/24: Left leg WCx: pending Surgery, 03/06/24: s/p Left 2nd partial metatarsal amputation, revision of prior amp site/wound dehiscence with derotational skin flap, Left heel wound debridement, Left leg wound debridement x 2, Flash antibiotic beads Intraop Specimens: Left toe amputation tissue culture: pending Left second metatarsal bone culture: pending Left second metatarsal proximal margin: pending 03/08/24: POD #2 -patient seen and evaluated at bedside by myself -no debridement today -labs and WCx reviewed: still pending -xeroform applied to 2-3rd toe amp, betadine soaked gauze, DSD applied -continue Zyvox, Levo as directed per Dr Coto -patient lives alone: refusing SNF -has C 2x weekly for dressing changes (, Wed) -discussed continuing IV abx via PICC vs oral abx at time of discharge -Dr Coto: Zyvox 600 mg twice daily, Levaquin 750 mg daily x7d -given his high risk for recurrent infection and hx of amp (R AKA, L 2-3rd toe, and now distal 2nd metatarsal), change of recurrence, need for LLE limb salvage: rec PICC, IV abx -if patient can get PICC, IV abx x7d then transition to 7d of the same oral abx, that would be preferable. However, patient was just at [facility] for 21 days and ID discharged him with no IV abx. Given his surgery this week, argument could be made for d/c with oral abx. -okay to change dressing if needed for strike thru (betadine soaked 4x4s, dry 4x4s, Kerlix, abd pad, Stewart bandage). *Stable from Podiatry stand point for discharge home once HHC and abx are arranged (first dressing change on 03/10/24). Podiatry HH Orders: Patient is to maintain dressing clean dry and intact. Plan for dressing changes every 2-3 days per C nurse. Dressing: betadine soaked 4x4s to wounds/sutures, dry 4x4s, Chelsey/Kerlix, secure with Stewart bandage. Off load heel on pillow to avoid further heel wound breakdown. Needs to continue antibiotics. Recommend PICC, IV antibiotics: Zyvox 600 mg twice daily, Levaquin 750 mg daily x7d then transition to 7d of the same oral abx. If discharged with no PICC, recommend 14d of oral abx. Non weight bearing to the left lower extremity with DME assistance (wheelchair). Follow-up in 1-2 weeks outpatient with Podiatry for dressing change.
[2024-03-08] MEDS: LEVOFLOXACIN/D5W 750 MG/150 ML 750 MG/150 ML PIGGYBACK 100 MG IV (12:05)
[2024-03-08 12:27] LABS: Erythrocyte Sedimentation Rate 131 mm/hr (0-20)
--- NOTE | 2024-03-08 12:30 | EXP.DC.SUM ---
General Admission date:: 03/03/24 Discharge date: 03/08/24 HPI HPI HPI: Patient had his right leg amputated below the knee in the distant past. Developed problems with the left foot was seen at [facility] in [place] and had 2 toes amputated. Cellulitis and infection continued in the left extremity he actually stated he was in [facility] for 21 days on IV antibiotics. He did not want to go back to [facility] wanted to be treated here. Also was requesting help to determine to be on comfort care and be able to stay in his own home 03/06/24- Podiatry consult Patient resting in bed upon entering the room. Alert and oriented and very pleasant in conversation. Patient had not eaten breakfast at this point due to feeling some nausea. Will have him stay NPO until after surgery for today. Hospital Course Hospital Course Hospital Course: 69 year old male presented to the ED for c/o LLE redness. Recently was admitted to [facility] with amputation of 3 toes. Prolonged admission for 21 days with IV antibiotics. Discharged a month ago at the beginning of January. Patient was evaluated by Podiatry and recommended IV Abx with SNF placement, however patient refused SNF - podiatry has following instructions Patient is to maintain dressing clean dry and intact. Plan for dressing changes every 2-3 days per [facility] nurse. Dressing: betadine soaked 4x4s to wounds/sutures, dry 4x4s, Chelsey/Kerlix, secure with Stewart bandage. Off load heel on pillow to avoid further heel wound breakdown. Needs to continue antibiotics. Recommend PICC, IV antibiotics: Zyvox 600 mg twice daily, Levaquin 750 mg daily x7d then transition to 7d of the same oral abx. If discharged with no PICC, recommend 14d of oral abx. Non weight bearing to the left lower extremity with DME assistance (wheelchair). Follow-up in 1-2 weeks outpatient with Podiatry for dressing change. patient will be discharged home and . Patient will be discharged home on Zyvox 600mg BID and Levaquin 750 daily for 7 days. Exam Data for Last 24 hours Vital signs and Labs for Last 24 Hours: Temp Pulse Resp BP Pulse Ox O2 Del Method 97.9 F 58 L 19 123/61 95 Room Air 03/08/24 07:25 03/08/24 07:25 03/08/24 07:25 03/08/24 07:25 03/08/24 07:25 03/08/24 11:00 Laboratory Results - last 24 hr 03/07/24 15:57: POC Glucose 100 03/07/24 20:19: POC Glucose 89 03/08/24 06:24: POC Glucose 115 H 03/08/24 10:10: WBC 9.7, RBC 3.64 L, Hgb 10.1 L, Hct 31.1 L, MCV 85.3, MCH 27.7, MCHC 32.5, RDW 18.4 H, Plt Count 234, MPV 8.6, Neut % (Auto) 71.9, Lymph % (Auto) 15.1, Bladen % (Auto) 6.2, Eos % (Auto) 6.2, Baso % (Auto) 0.6, Neut # (Auto) 7.0, Lymph # (Auto) 1.5, Bladen # (Auto) 0.6, Eos # (Auto) 0.6 H, Baso # (Auto) 0.1, ESR 131 H, Sodium 134 L, Potassium 4.2, Chloride 102, Carbon Dioxide 25, Anion Gap 11.2, BUN 17, Creatinine 1.00, Estimated Creat Clear 115, Estimated GFR 74, Est GFR ( Amer) 89, Glucose 136 H, Calcium 8.6, C-Reactive Protein 39.2 H I & O for Last 24 hours: Intake & Output 03/05/24 03/06/24 03/07/24 03/08/24 23:59 23:59 23:59 23:59 Intake Total 1307 / 1679 1512 / 1512 1440 / 1440 360 / 360 Output Total 975 / 975 1500 / 1950 2400 / 2400 400 / 400 Balance 332 / 704 12 / -438 -960 / -960 -40 / -40 Weight 120 kg 120.519 kg 120.519 kg 118.558 kg Microbiology Reports for the Last 24 Hours: Microbiology 03/06/24 07:50 Foot,Left Gram Stain - Final 03/06/24 07:50 Foot,Left Wound Culture - Preliminary Gram Positive Cocci 03/03/24 20:20 Blood Blood Culture - Preliminary NO GROWTH AFTER 4 DAYS 03/03/24 20:10 Blood Blood Culture - Preliminary NO GROWTH AFTER 4 DAYS 03/06/24 Unknown Toe,Left Second Surgical Biopsy Culture - Preliminary NO GROWTH AFTER 24 HOURS Constitutional Constitutional: no acute distress *Routine HEENT Exam Head: Present normocephalic Eye: Present EOMI and PERRL ENT: Present mucous membranes moist *Routine Neck Exam Neck: Present supple; Absent lymphadenopathy *Routine Respiratory Exam Respiratory: Present CTA bilaterally *Routine Cardiovascular Exam Cardiovascular: Present RRR *Routine Abdominal Exam Abdominal: Present soft and normoactive bowel sounds; Absent tenderness *Routine Extremities Exam Extremities: Absent cyanosis, clubbing or edema Comments: left leg is covered in dressing, has R knee amputation *Routine Skin Exam Skin: Present warm; Absent rash *Routine Neurological Exam Neurological: Present alert and oriented X3 Results Data Completed and Pending Labs on day of discharge: Labs from last 24 hours 03/08/24 03/08/24 03/07/24 10:10 06:24 20:19 WBC 9.7 RBC 3.64 L Hgb 10.1 L Hct 31.1 L MCV 85.3 MCH 27.7 MCHC 32.5 RDW 18.4 H Plt Count 234 MPV 8.6 Neut % (Auto) 71.9 Lymph % (Auto) 15.1 Bladen % (Auto) 6.2 Eos % (Auto) 6.2 Baso % (Auto) 0.6 Neut # (Auto) 7.0 Lymph # (Auto) 1.5 Bladen # (Auto) 0.6 Eos # (Auto) 0.6 H Baso # (Auto) 0.1 ESR 131 H Sodium 134 L Potassium 4.2 Chloride 102 Carbon Dioxide 25 Anion Gap 11.2 BUN 17 Creatinine 1.00 Estimated Creat Clear 115 Estimated GFR 74 Est GFR ( Amer) 89 Glucose 136 H POC Glucose 115 H 89 Calcium 8.6 C-Reactive Protein 39.2 H 03/07/24 15:57 WBC RBC Hgb Hct MCV MCH MCHC RDW Plt Count MPV Neut % (Auto) Lymph % (Auto) Bladen % (Auto) Eos % (Auto) Baso % (Auto) Neut # (Auto) Lymph # (Auto) Bladen # (Auto) Eos # (Auto) Baso # (Auto) ESR Sodium Potassium Chloride Carbon Dioxide Anion Gap BUN Creatinine Estimated Creat Clear Estimated GFR Est GFR ( Amer) Glucose POC Glucose 100 Calcium C-Reactive Protein Preliminary micro results at discharge 03/06/24 07:50 Wound Culture - Preliminary Foot,Left Gram Positive Cocci 03/03/24 20:20 Blood Culture - Preliminary Blood NO GROWTH AFTER 4 DAYS 03/03/24 20:10 Blood Culture - Preliminary Blood NO GROWTH AFTER 4 DAYS 03/06/24 Unknown Surgical Biopsy Culture - Preliminary Toe,Left Second NO GROWTH AFTER 24 HOURS DS: Diagnosis Discharge Diagnosis (1) Diabetic foot infection: Status: Acute Code(s): E11.628 - Type 2 diabetes mellitus with other skin complications; L08.9 - Local infection of the skin and subcutaneous tissue, unspecified (2) Cellulitis of left leg: Status: Acute Code(s): L03.116 - Cellulitis of left lower limb (3) PAD (peripheral artery disease): Status: Acute Code(s): I73.9 - Peripheral vascular disease, unspecified (4) Diabetic ulcer of left foot: Status: Acute Code(s): E11.621 - Type 2 diabetes mellitus with foot ulcer; L97.529 - Non-pressure chronic ulcer of other part of left foot with unspecified severity Qualifiers: Diabetic foot ulcer location: heel Diabetes mellitus type: type 2 Non-pressure ulcer stage: with fat layer exposed Qualified Code(s): E11.621 - Type 2 diabetes mellitus with foot ulcer; L97.422 - Non-pressure chronic ulcer of left heel and midfoot with fat layer exposed (5) Infection of toe as complication of amputation: Status: Acute Code(s): T87.40 - Infection of amputation stump, unspecified extremity (6) Right above-knee amputee: Status: Acute Code(s): Z89.611 - Acquired absence of right leg above knee Meds Home Medications and Allergies Home Medications Medication Instructions Recorded Confirmed Type aspirin 81 mg tablet,delayed 81 mg PO DAILY Heart Disease 04/20/23 03/03/24 History release buspirone 5 mg tablet 5 mg PO TID Anxiety 04/20/23 03/03/24 History docusate sodium 250 mg capsule 250 mg PO BID Constipation 04/20/23 03/03/24 History finasteride 5 mg tablet 5 mg PO DAILY PROSTATE 04/20/23 03/03/24 History furosemide 40 mg tablet 40 mg PO DAILY Fluid 04/20/23 03/03/24 History lamotrigine 100 mg tablet 100 mg PO BID Seizure 04/20/23 03/03/24 History losartan 50 mg tablet 50 mg PO DAILY High Blood Pressure 04/20/23 03/03/24 History lamotrigine 150 mg tablet 150 mg PO HS Seizures 04/21/23 03/03/24 History insulin glargine 100 unit/mL (3 42 unit SQ HS Diabetes 06/04/23 03/03/24 History mL) subcutaneous pen (Lantus Solostar U-100 Insulin) tamsulosin 0.4 mg capsule 0.8 mg PO HS PROSTATE 06/04/23 03/03/24 History clopidogrel 75 mg tablet (Plavix) 75 mg PO DAILY #30 tabs 06/08/23 03/03/24 Rx metoprolol succinate 25 mg 25 mg PO DAILY #30 tabs 06/08/23 03/03/24 Rx tablet,extended release 24 hr atorvastatin 40 mg tablet 40 mg PO DAILY High Cholesterol 03/03/24 03/03/24 History baclofen 10 mg tablet 10 mg PO BID 03/03/24 03/03/24 History ferrous sulfate 325 mg (65 mg 325 mg PO DAILY 03/03/24 03/03/24 History iron) tablet pantoprazole 40 mg tablet,delayed 40 mg PO DAILY 03/03/24 03/03/24 History release levofloxacin 750 mg tablet 750 mg PO DAILY 7 days #7 tabs 03/08/24 Rx linezolid 600 mg tablet (Zyvox) 600 mg PO Q12H 7 days #14 tabs 03/08/24 Rx New Prescriptions to Start Prescriptions: levofloxacin Rosio Glez linezolid [Zyvox] Rosio Glez Allergies Allergy/AdvReac Type Severity Reaction Status Date / Time hydrocodone [From LORTAB] Allergy Unknown NA-NAUSEA/V Verified 06/04/23 16:47 OMITING levetiracetam [From Keppra] Allergy Verified 03/03/24 23:56 tramadol AdvReac Unknown Verified 06/04/23 16:47 allergy reaction Discharge Plan Disposition Patient Disposition: Home Health Service Condition: Fair Discharge Order Discharge Orders: Discharge Order (Routine); Ordered 03/08/24 Ordered By: Rosio Glez Follow up Plan Follow up with: Gustavo Leggett MD [Primary Care Provider] - 03/15/24 2:00 pm Sherri Faust DPM [Staff Physician] - 03/13/24 11:30 am Prescriptions/Medication Reconciliation: New linezolid [Zyvox] 600 mg tablet 600 mg PO Q12H 7 Days Qty: 14 0RF levofloxacin 750 mg tablet 750 mg PO DAILY 7 Days Qty: 7 0RF Continued tamsulosin 0.4 mg capsule 0.8 mg PO HS insulin glargine [Lantus Solostar U-100 Insulin] 100 unit/mL (3 mL) insulin pen 42 unit SQ HS metoprolol succinate 25 mg Tablet Extended Release 24 Hr 25 mg PO DAILY Qty: 30 0RF clopidogrel [Plavix] 75 mg tablet 75 mg PO DAILY Qty: 30 0RF losartan 50 mg tablet 50 mg PO DAILY Patient Comments: TAKE ONE TABLET BY MOUTH ONCE DAILY furosemide 40 mg tablet 40 mg PO DAILY Patient Comments: TAKE ONE TABLET BY MOUTH ONCE DAILY aspirin 81 mg tablet,delayed release (DR/EC) 81 mg PO DAILY docusate sodium 250 mg capsule 250 mg PO BID Patient Comments: TAKE ONE CAPSULE BY MOUTH TWICE DAILY lamotrigine 100 mg tablet 100 mg PO BID Patient Comments: TAKE ONE TABLET BY MOUTH TWICE DAILY finasteride 5 mg tablet 5 mg PO DAILY Patient Comments: TAKE ONE TABLET BY MOUTH ONCE DAILY lamotrigine 150 mg tablet 150 mg PO HS Patient Comments: TAKE ONE TABLET BY MOUTH AT BEDTIME Rx Instructions: 150mg by mouth nightly with the 100mg tablet for seizures baclofen 10 mg Tablet 10 mg PO BID pantoprazole 40 mg Tablet,Delayed Release (Dr/Ec) 40 mg PO DAILY ferrous sulfate 325 mg (65 mg iron) Tablet 325 mg PO DAILY atorvastatin 40 mg tablet 40 mg PO DAILY Patient Comments: TAKE ONE TABLET BY MOUTH ONCE DAILY Held buspirone 5 mg tablet 5 mg PO TID Hold Instructions: Hold until completing Zyvox. Okay to resume 24 hours after last dose of Zyvox. Patient Comments: TAKE ONE TABLET BY MOUTH THREE TIMES DAILY Problem Reconciliation Problems Reviewed?: Yes Patient Discharge Instructions ACTIVITY: Ambulate as tolerated DIET: continue same diet Patient Instructions: DI for Cellulitis -- Adult, DI for Debridement of a Wound, Infection, or Burn, DI for Surgical Site Infection Providers Primary Care Provider: Gustavo Leggett Admtal Provider: Feliciano Coto Attending Provider: Feliciano Coto
[2024-03-08 15:54] VITALS: BP 115/65; PULSE 78; RESP 20; TEMP 36.5; O2SAT 96
[2024-03-08 16:48] LABS: POC Glucose,Bedside 142 (70-110)
--- NOTE | 2024-03-08 17:24 | PC.NURSE ---
Pt remains waiting EMS transport back home. EMS has notified staff that ETA has been pushed back again.
--- NOTE | 2024-03-08 18:46 | PC.NURSE ---
PICC pulled at 1820
--- NOTE | 2024-03-08 19:44 | PC.NURSE ---
EMS is here for transport back home
--- NOTE | 2024-03-09 13:28 | CARE MANAGER ---
Contacted patient related to hospital discharge. He states he is doing better. He is taking his antibiotics and is aware of follow up appointments. He will call home health if he doesn't hear from them soon. He denies any questions or concerns. JESSEE Hunter
== END 2024-03-08 19:50 | disposition home health service (06) | DRG 617 ==
LOC: ER 20:58 → 2ND 21:31
PROVIDERS: Nurse Practitioner Family; Podiatrist; Admitting Provider Internal Medicine Adolescent Medicine; Emergency Provider Student in an Organized Health Care Education/Training Program; PCP Internal Medicine Adolescent Medicine; Visit Provider Internal Medicine Adolescent Medicine
PROC: 0Y6N0ZB Detachment at Left Foot, Partial 2nd Ray, Open Approach (ICD-10-PCS; principal; 2024-03-06 12:00)
DX: E11.69 Type 2 diabetes mellitus with other specified complication (principal); L03.116 Cellulitis of left lower limb; M86.9 Osteomyelitis, unspecified; L97.422 Non-pressure chronic ulcer of left heel and midfoot with fat layer exposed; M48.061 Spinal stenosis, lumbar region without neurogenic claudication; T87.81 Dehiscence of amputation stump; Y83.5 Amputation of limb(s) as the cause of abnormal reaction of the patient, or of later complication, without mention of misadventure at the time of the procedure; I73.9 Peripheral vascular disease, unspecified; E11.51 Type 2 diabetes mellitus with diabetic peripheral angiopathy without gangrene; F44.4 Conversion disorder with motor symptom or deficit; E11.628 Type 2 diabetes mellitus with other skin complications; L08.9 Local infection of the skin and subcutaneous tissue, unspecified; G40.909 Epilepsy, unspecified, not intractable, without status epilepticus; I10 Essential (primary) hypertension; E66.9 Obesity, unspecified; Z79.899 Other long term (current) drug therapy; Z68.35 Body mass index [BMI] 35.0-35.9, adult; Z79.4 Long term (current) use of insulin; Z87.891 Personal history of nicotine dependence; E11.621 Type 2 diabetes mellitus with foot ulcer; N40.0 Benign prostatic hyperplasia without lower urinary tract symptoms; Z89.511 Acquired absence of right leg below knee; L97.529 Non-pressure chronic ulcer of other part of left foot with unspecified severity
CPT/HCPCS: 28810; 11042 ×2; 20700; 36415; 36569; 71045; 73590; 73630; 73700; 80048; 80053; 80202; 82962; 83036; 83605; 83735; 85025; 85651; 86140; 87040; 87070; 87077; 87186; 87205; 88304; 88305; 88311; 96374; 97163; 97166; 99285; C1713; C1751; J1580; J1650; J1956; J2020; J2185; J2250; J2270; J2405; J2710; J3010; J3370; J7120

== ENCOUNTER 2024-03-27 17:00 | Inpatient (IN) | payer MEDICARE, SELFPAY ==
[2024-03-27] VITALS (8 sets, daily range): BP systolic 104–161; BP diastolic 56–84; PULSE 94–104; RESP 16–21; TEMP 36.9; O2SAT 93–98; BMI 35.2; BMI 34.5
--- NOTE | 2024-03-27 17:41 | PC.NURSE ---
DR SAENZ AT BEDSIDE
--- NOTE | 2024-03-27 17:49 | XR_ITS ---
PROCEDURE INFORMATION: Exam: XR Left Foot Exam date and time: 03/27/2024 6:50 PM Age: 69 years old Clinical indication: Other: Draining wound; Prior surgery; Surgery date: <1 month; Surgery type: Amp toes; Additional info: Recent amp toes, draining wound TECHNIQUE: Imaging protocol: Radiologic exam of the left foot. Views: 3 or more views. COMPARISON: CR XR FOOT LT MIN 3V 03/06/2024 3:00 PM FINDINGS: Bones/joints: There has been prior amputation of the phalanges of the 2nd 3rd toes as well as the distal of the 2nd metatarsal. Remaining osseous structures appear intact. Bones are diffusely osteopenic. No evidence of aggressive periostitis or osseous destruction. A few residual radiodensities in the soft tissues distal to the 3rd metatarsal compatible with antibiotic beads. Mild plantar calcaneal spurring noted. Soft tissues: Moderate soft tissue swelling of the foot noted. No significant soft tissue gas evident Vasculature: Small-vessel arterial calcification is noted throughout the foot and ankle. IMPRESSION: Postoperative changes again noted with moderate soft tissue swelling of the foot, improved from previous. No convincing of osteomyelitis
--- NOTE | 2024-03-27 17:52 | ED_ITS ---
Discharge Plan Disposition Patient Disposition: Admitted Chief Complaint: PAIN Prescriptions Prescriptions: No Action tamsulosin 0.4 mg capsule 0.8 mg PO HS insulin glargine [Lantus Solostar U-100 Insulin] 100 unit/mL (3 mL) insulin pen 42 unit SQ HS metoprolol succinate 25 mg Tablet Extended Release 24 Hr 25 mg PO DAILY Qty: 30 0RF clopidogrel [Plavix] 75 mg tablet 75 mg PO DAILY Qty: 30 0RF losartan 50 mg tablet 50 mg PO DAILY Patient Comments: TAKE ONE TABLET BY MOUTH ONCE DAILY furosemide 40 mg tablet 40 mg PO DAILY Patient Comments: TAKE ONE TABLET BY MOUTH ONCE DAILY buspirone 5 mg tablet 5 mg PO TID Hold Instructions: Hold until completing Zyvox. Okay to resume 24 hours after last dose of Zyvox. Patient Comments: TAKE ONE TABLET BY MOUTH THREE TIMES DAILY aspirin 81 mg tablet,delayed release (DR/EC) 81 mg PO DAILY docusate sodium 250 mg capsule 250 mg PO BID Patient Comments: TAKE ONE CAPSULE BY MOUTH TWICE DAILY lamotrigine 100 mg tablet 100 mg PO BID Patient Comments: TAKE ONE TABLET BY MOUTH TWICE DAILY finasteride 5 mg tablet 5 mg PO DAILY Patient Comments: TAKE ONE TABLET BY MOUTH ONCE DAILY lamotrigine 150 mg tablet 150 mg PO HS Patient Comments: TAKE ONE TABLET BY MOUTH AT BEDTIME Rx Instructions: 150mg by mouth nightly with the 100mg tablet for seizures baclofen 10 mg Tablet 10 mg PO BID pantoprazole 40 mg Tablet,Delayed Release (Dr/Ec) 40 mg PO DAILY ferrous sulfate 325 mg (65 mg iron) Tablet 325 mg PO DAILY atorvastatin 40 mg tablet 40 mg PO DAILY Patient Comments: TAKE ONE TABLET BY MOUTH ONCE DAILY linezolid [Zyvox] 600 mg tablet 600 mg PO Q12H 7 Days Qty: 14 0RF levofloxacin 750 mg tablet 750 mg PO DAILY 7 Days Qty: 7 0RF Referrals Follow up/Referrals: Gustavo Leggett MD [Primary Care Provider] - See instructions Clinical Impressions Clinical Impression: Diabetic foot infection Discharge ED Provider: Augusto Fofana General Adult HPI General Chief complaint: PAIN Stated complaint: Left leg pain Time Seen by Provider: 03/27/24 17:38 History of Present Illness HPI narrative: Patient is a 69-year-old male with past medical history of multiple comorbidities including hypertension, hyperlipidemia, recurrent cellulitis of bilateral lower extremities, chronic nonhealing wounds of the bilateral lower extremities, peripheral artery disease status post right lower extremity amputation, multiple nonhealing wounds of the left lower extremity status post multiple surgical interventions who is wheelchair-bound at baseline who presents emergency department for evaluation of his left foot wound. He recently had surgery by podiatry here, they have been trying to have him undergo amputation given that his prognosis of his left foot is poor however he has refused previously. He is wound care twice a week that sees him and change his dressings. They noticed some drainage from his stitches and caused him to return here for continued evaluation. He has some redness of his lower extremity which is unclear if it is worse than baseline. He otherwise has no other acute complaints. Related Data Home Medications Medication Instructions Recorded Confirmed aspirin 81 mg tablet,delayed 81 mg PO DAILY Heart Disease 04/20/23 03/03/24 release buspirone 5 mg tablet 5 mg PO TID Anxiety 04/20/23 03/03/24 docusate sodium 250 mg capsule 250 mg PO BID Constipation 04/20/23 03/03/24 finasteride 5 mg tablet 5 mg PO DAILY PROSTATE 04/20/23 03/03/24 furosemide 40 mg tablet 40 mg PO DAILY Fluid 04/20/23 03/03/24 lamotrigine 100 mg tablet 100 mg PO BID Seizure 04/20/23 03/03/24 losartan 50 mg tablet 50 mg PO DAILY High Blood Pressure 04/20/23 03/03/24 lamotrigine 150 mg tablet 150 mg PO HS Seizures 04/21/23 03/03/24 insulin glargine 100 unit/mL (3 42 unit SQ HS Diabetes 06/04/23 03/03/24 mL) subcutaneous pen (Lantus Solostar U-100 Insulin) tamsulosin 0.4 mg capsule 0.8 mg PO HS PROSTATE 06/04/23 03/03/24 atorvastatin 40 mg tablet 40 mg PO DAILY High Cholesterol 03/03/24 03/03/24 baclofen 10 mg tablet 10 mg PO BID 03/03/24 03/03/24 ferrous sulfate 325 mg (65 mg 325 mg PO DAILY 03/03/24 03/03/24 iron) tablet pantoprazole 40 mg tablet,delayed 40 mg PO DAILY 03/03/24 03/03/24 release Previous Rx's Medication Instructions Recorded clopidogrel 75 mg tablet (Plavix) 75 mg PO DAILY #30 tabs 06/08/23 metoprolol succinate 25 mg 25 mg PO DAILY #30 tabs 06/08/23 tablet,extended release 24 hr levofloxacin 750 mg tablet 750 mg PO DAILY 7 days #7 tabs 03/08/24 linezolid 600 mg tablet (Zyvox) 600 mg PO Q12H 7 days #14 tabs 03/08/24 Allergies Allergy/AdvReac Type Severity Reaction Status Date / Time hydrocodone [From LORTAB] Allergy Unknown NA-NAUSEA/V Verified 06/04/23 16:47 OMITING levetiracetam [From Keppra] Allergy Verified 03/03/24 23:56 tramadol AdvReac Unknown Verified 06/04/23 16:47 allergy reaction PFSH PFS Disclaimer: The information contained in this section may have been updated after the patient was seen, as this information can be updated by other users. Medical History Seizure CAD in [place] artery Acute febrile illness Atrial flutter Bilateral cellulitis of lower leg Cellulitis Diabetes mellitus Dystrophia unguium Fatigue Fever Infestation by fly larvae Lymphedema of both lower extremities Malaise Obesity with body mass index (BMI) of 30.0 to 39.9 Peripheral vascular disease Renal insufficiency Spinal stenosis of cervical region Spinal stenosis of lumbar region Systemic inflammatory response syndrome (SIRS) Ulcers of both lower extremities Uncontrolled diabetes mellitus History of left heart catheterization (LHC) Surgical History H/O Spinal surgery Family History Mother Breast cancer Family history of myocardial infarction Social History Smoking Status: Never smoker alcohol intake: never substance use type: marijuana current occupational status: retired and disabled Travel in the last 8 weeks: None household members: family caffeine: No ROS Obtained: Yes Systems reviewed as appropriate & no additional complaints except as documented Physical Exam General General appearance: alert and in no apparent distress Head Head exam: atraumatic and normocephalic Eye Eye exam: Present PERRL ENT ENT exam: Present mucous membranes moist Neck Neck exam: Present normal inspection Chest Chest inspection: Present normal inspection and symmetric chest wall rise Respiratory Respiratory exam: Present normal lung sounds bilaterally; Absent respiratory distress Cardiovascular Cardiovascular exam: Present regular rate and normal rhythm Abdominal Exam Abdominal exam: Present soft; Absent tenderness Extremities Exam Extremities exam: Present other (Right lower extremity amputation, left lower extremity amputated toes 2 and 3 with multiple stitches, chronic subungual hyperkeratosis, streaking erythema up the left lower extremity, capillary refill of the great toe is preserved. It appears there is fibrinous exudate draining from the stitches.) Neurological Exam Neurological exam: Present alert Psychiatric Psychiatric exam: Present normal affect Skin Skin exam: Present warm and dry Medical Decision Making Lex Inquiry Pt receiving controlled substance: No Vital Signs: 03/27/24 17:01 Temperature 98.4 F Temperature Source Oral Pulse Rate [Left Radial] 100 H Respiratory Rate 16 Blood Pressure [Right Arm] 122/58 L Blood Pressure Mean [Right Arm] 79 Blood Pressure Source [Right Arm] Automatic Cuff Blood Pressure Position [Right Arm] Sitting 02 Sat by Pulse Oximetry 98 Oxygen Delivery Method Room Air Lab Data Lab Results 03/27/24 17:20: Sodium 140, Potassium 4.3, Chloride 109 H, Carbon Dioxide 20 L, Anion Gap 15.3 H, BUN 21 H, Creatinine 0.70, Estimated Creat Clear 115, Estimated GFR 111, Est GFR ( Amer) 135, Glucose 110 H, Calcium 8.7, Total Bilirubin 0.5, AST 33, ALT 26, Alkaline Phosphatase 89, C-Reactive Protein 36.1 H, Total Protein 6.8, Albumin 3.7, Globulin 3.1, Albumin/Globulin Ratio 1.2 03/27/24 19:37: WBC 6.8, RBC 3.11 L, Hgb 8.5 L, Hct 25.7 L, MCV 82.7, MCH 27.2, MCHC 33.0, RDW 17.8 H, Plt Count 115 L, MPV 9.7, Neut % (Auto) 67.7, Lymph % (Auto) 23.9, [place] % (Auto) 5.8, Eos % (Auto) 2.2, Baso % (Auto) 0.3, Neut # (Auto) 4.6, Lymph # (Auto) 1.6, [place] # (Auto) 0.4, Eos # (Auto) 0.2, Baso # (Auto) 0.0, ESR 124 H 03/27/24 19:37 03/27/24 17:20 Orders (Tests/Meds): ED MEDICATIONS Generic Name Dose Route Start Last Admin Trade Name Freq PRN Reason Stop Dose Admin Metronidazole 500 mg in 100 mls @ 100 mls/hr 03/27/24 18:00 Flagyl 500mg/100ml Ivpb IV 04/06/24 17:59 Q8H DEEPTI Miscellaneous 1 each 03/27/24 18:00 Vancomycin Consult Request NOTAPPLIC 04/26/24 17:59 CONSULT PHARMACY DEEPTI Discontinued Medications Generic Name Dose Route Start Last Admin Trade Name Freq PRN Reason Stop Dose Admin Cefepime HCl 2 gm/ Sodium 100 mls @ 200 mls/hr 03/27/24 17:49 Chloride IV 03/27/24 18:18 ONCE ONE Vancomycin HCl 2,250 mg/ 250 mls @ 125 mls/hr 03/27/24 18:00 03/27/24 18:54 Sodium Chloride IV 03/27/24 19:59 125 mls/hr ONCE ONE Administration ORDERS Category Date Time Status Foot XR left minimum 3 views [XR foot LT min 3V] Stat Exams 03/27/24 17:49 Completed CBC w/Auto Diff [Complete Blood Count Auto Diff] Stat Lab 03/27/24 19:37 Completed CMP [Comprehensive Metabolic Panel] Stat Lab 03/27/24 17:20 Completed CRP [C-Reactive Protein] Stat Lab 03/27/24 17:20 Completed ESR [Erythrocyte Sedimentation Rate] Stat Lab 03/27/24 19:37 Completed Blood Culture Stat Micro 03/27/24 17:20 Received Medical Decision Narrative: In summary patient is a 6-year-old male with past medical history described above presents emergency department for evaluation of chronic nonhealing infected left lower extremity status post recent surgical intervention. Patient is hemodynamically stable nontoxic-appearing upon arrival, afebrile. Is hard to tell whether this is an acute superinfection of his lower extremity or if this is chronic and he would benefit from amputation although he is resistant and currently declining. Regardless he wishes to pursue maximum medical therapy. Given this differential includes infection, chronic nonhealing wounds, among others. Workup be conducted with hematologic labs, plain film x-ray. Based on culture data Zosyn is not appropriate and broad-spectrum antibiotics with vancomycin, cefepime, metronidazole will be initiated. Sepsis bolus fluids were considered but will be deferred given that he appears largely euvolemic. Initial workup reviewed by me, hematologic labs are largely nonactionable although patient does have a downtrending hemoglobin from prior he has no evidence of ongoing bleeding clinically and will require monitoring. CRP mildly elevated at 36. No CHARLIE or critical electrolyte abnormality. Plain film of the left foot read demonstrates postoperative changes with moderate soft tissue swelling, no convincing osteomyelitis, no evidence of free air. Given the need for evaluation by foot surgery and IV antibiotics given that it is difficult for me to tell if this is his chronically infected foot or if it is acutely superinfected the case was discussed with hospital medicine regarding management who agrees and patient be admitted to their service for continued evaluation at this time. Critical Care Critical Care Time Critical Care Time: No
[2024-03-27 18:12] LABS: Chloride 109 mmol/L (98-107); Sodium 140 mmol/L (136-145)
[2024-03-27 18:13] LABS: Potassium 4.3 mmoL/L (3.5-5.1)
[2024-03-27 18:15] LABS: Alanine Aminotransferase 26 U/L (12-78); Alkaline Phosphatase 89 U/L (38-126); Anion Gap 15.3 mEq/L (5-15); Aspartate Amino Transferase 33 U/L (17-59); Bilirubin,Total 0.5 mg/dl (0.2-1.3); Blood Urea Nitrogen 21 mg/dl (9-20); Carbon Dioxide 20 mmol/L (22.0-30.0); Creatinine Clearance Estimated 115 mL/min (50-200); Estimated Glomerular Filt Rate 111 ml/min (>60); GFR (African American) 135 ML/MIN (>60)
[2024-03-27 18:16] LABS: Albumin Level 3.7 g/dl (3.5-5.0); Albumin/Globulin Ratio 1.2 (1.1-1.8); Calcium 8.7 mg/dl (8.4-10.2); Globulin 3.1 g/dL (1.3-3.2); Glucose 110 mg/dl (74-100); Total Protein,Serum 6.8 g/dl (6.3-8.2)
[2024-03-27 18:21] LABS: C-Reactive Protein 36.1 mg/L (0-4)
[2024-03-27] MEDS: VANCOMYCIN HCL 2,250 MG in 0.9 % SODIUM CHLORIDE 250 ML 125 MG IV (18:54)
[2024-03-27 19:43] LABS: Basophils % 0.3 % (0.1-2.0); Eosinophils # 0.2 K/mm3 (0.0-0.4); Eosinophils % 2.2 % (0.1-12.0); Hematocrit 25.7 % (42.0-52.0); Hemoglobin 8.5 g/dL (14.1-18.0); Lymphocytes # 1.6 K/mm3 (0.7-4.5); Lymphocytes % 23.9 % (10-50); Mean Corpuscular Hemoglobin 27.2 pg (27.0-31.2); Mean Corpuscular Volume 82.7 fl (80-94); Mean Platelet Volume 9.7 fl (7.4-10.4); Monocytes # 0.4 K/mm3 (0.1-1.0); Monocytes % 5.8 % (1.7-9.3); Neutrophils # 4.6 K/mm3 (1.8-7.8); Neutrophils % 67.7 % (37.0-80.0); Platelet Count 115 K/mm3 (142-424); Red Blood Count 3.11 M/mm3 (4.60-6.20); Red Cell Distribution Width 17.8 % (11.5-17.5); White Blood Count 6.8 K/mm3 (4.8-10.8)
[2024-03-27 21:11] LABS: Erythrocyte Sedimentation Rate 124 mm/hr (0-20)
--- NOTE | 2024-03-27 21:15 | P.HP_ITS ---
History of Present Illness *Admission Date: 03/27/24 *Reason for visit:: left foot wound *History of present illness: This is a 69-year-old male with PMHx of multiple comorbidities including hypertension, hyperlipidemia, recurrent cellulitis of bilateral lower extremities, chronic nonhealing wounds of the bilateral lower extremities, peripheral artery disease s/p right AKA, and multiple nonhealing wounds of the left lower extremity s/p recent 3rd and 4th toes amputation, and discharged home with Home health services who presented emergency department for evaluation of his left foot wound. Recommendation is to undergo amputation given that his prognosis of his left foot is poor however he has refused previously. He is wound care twice a week that sees him and change his dressings. They noticed some drainage from his stitches and caused him to return here for continued evaluation. He has some redness of his lower extremity which is unclear if it is worse than baseline. He otherwise has no other acute complaints. [facility] Disclaimer: The information contained in this section may have been updated after the patient was seen, as this information can be updated by other users. Medical History Seizure CAD in [place] artery Acute febrile illness Atrial flutter Bilateral cellulitis of lower leg Cellulitis Diabetes mellitus Dystrophia unguium Fatigue Fever Infestation by fly larvae Lymphedema of both lower extremities Malaise Obesity with body mass index (BMI) of 30.0 to 39.9 Peripheral vascular disease Renal insufficiency Spinal stenosis of cervical region Spinal stenosis of lumbar region Systemic inflammatory response syndrome (SIRS) Ulcers of both lower extremities Uncontrolled diabetes mellitus History of left heart catheterization (LHC) Surgical History H/O Spinal surgery Family History Mother Breast cancer Family history of myocardial infarction Social History (Updated 03/27/24 @ 22:53 by Jailyn Meyers RN) Smoking Status: Never smoker alcohol intake: never substance use type: marijuana current occupational status: retired and disabled Travel in the last 8 weeks: None household members: family caffeine: No Review of Systems Review of Systems Review of systems:: pertinent systems reviewed and negative unless documented below Meds Home Medications and Allergies Home Medications Medication Instructions Recorded Confirmed Type aspirin 81 mg tablet,delayed 81 mg PO DAILY 04/20/23 03/27/24 History release buspirone 5 mg tablet 5 mg PO TID 04/20/23 03/27/24 History docusate sodium 250 mg capsule 250 mg PO BID 04/20/23 03/27/24 History finasteride 5 mg tablet 5 mg PO DAILY PROSTATE 04/20/23 03/27/24 History furosemide 40 mg tablet 40 mg PO DAILY Fluid 04/20/23 03/27/24 History lamotrigine 100 mg tablet 100 mg PO BID 04/20/23 03/27/24 History losartan 50 mg tablet 50 mg PO DAILY 04/20/23 03/27/24 History lamotrigine 150 mg tablet 150 mg PO HS Seizures 04/21/23 03/27/24 History insulin glargine 100 unit/mL (3 42 unit SQ HS 06/04/23 03/27/24 History mL) subcutaneous pen (Lantus Solostar U-100 Insulin) tamsulosin 0.4 mg capsule 0.8 mg PO HS 06/04/23 03/27/24 History clopidogrel 75 mg tablet (Plavix) 75 mg PO DAILY #30 tabs 06/08/23 03/28/24 Rx metoprolol succinate 25 mg 25 mg PO DAILY #30 tabs 06/08/23 03/28/24 Rx tablet,extended release 24 hr atorvastatin 40 mg tablet 40 mg PO DAILY 03/03/24 03/27/24 History baclofen 10 mg tablet 10 mg PO BIDP PRN Muscle Spasm 03/03/24 03/28/24 History ferrous sulfate 325 mg (65 mg 325 mg PO DAILY 03/03/24 03/27/24 History iron) tablet pantoprazole 40 mg tablet,delayed 40 mg PO DAILY 03/03/24 03/27/24 History release metoclopramide HCl 5 mg tablet 5 mg PO BID 03/27/24 03/27/24 History New Prescriptions to Start Prescriptions: Allergies Allergy/AdvReac Type Severity Reaction Status Date / Time hydrocodone [From LORTAB] Allergy Unknown NA-NAUSEA/V Verified 06/04/23 16:47 OMITING levetiracetam [From Keppra] Allergy Verified 03/03/24 23:56 tramadol AdvReac Unknown Verified 06/04/23 16:47 allergy reaction Exam Data for Last 24 hours Vital signs and Labs for Last 24 Hours: Temp Pulse Resp BP Pulse Ox O2 Del Method 98.4 F 100 H 16 122/58 L 98 Room Air 03/27/24 17:01 03/27/24 17:01 03/27/24 17:01 03/27/24 17:01 03/27/24 17:01 03/27/24 17:01 Laboratory Results - last 24 hr 03/27/24 17:20: Sodium 140, Potassium 4.3, Chloride 109 H, Carbon Dioxide 20 L, Anion Gap 15.3 H, BUN 21 H, Creatinine 0.70, Estimated Creat Clear 115, Estimated GFR 111, Est GFR ( Amer) 135, Glucose 110 H, Calcium 8.7, Total Bilirubin 0.5, AST 33, ALT 26, Alkaline Phosphatase 89, C-Reactive Protein 36.1 H, Total Protein 6.8, Albumin 3.7, Globulin 3.1, Albumin/Globulin Ratio 1.2 03/27/24 19:37: WBC 6.8, RBC 3.11 L, Hgb 8.5 L, Hct 25.7 L, MCV 82.7, MCH 27.2, MCHC 33.0, RDW 17.8 H, Plt Count 115 L, MPV 9.7, Neut % (Auto) 67.7, Lymph % (Auto) 23.9, [place] % (Auto) 5.8, Eos % (Auto) 2.2, Baso % (Auto) 0.3, Neut # (Auto) 4.6, Lymph # (Auto) 1.6, [place] # (Auto) 0.4, Eos # (Auto) 0.2, Baso # (Auto) 0.0, ESR 124 H I & O for Last 24 hours: Intake & Output 03/24/24 03/25/24 03/26/24 03/27/24 23:59 23:59 23:59 23:59 Weight 117.934 kg Radiology Reports for the Last 24 Hours: Besides what is noted in the history no acute bony injuries noted or misalignment, x-ray written reports reviewed and films reviewed Constitutional Constitutional: mild distress, obese and obtunded Comments: Very friendly gentleman good historian talks freely about his present condition and is in decision as to his future care. He noted that he wants to not go back to long-term care he has been there many times and he does not like it *Routine HEENT Exam Head: Present normocephalic and atraumatic Eye: Present EOMI and PERRL ENT: Present other *Routine Neck Exam Neck: Present supple and full ROM Routine Chest/Breast/Axilla Exam Comments: Examination of the chest and upper back shows no signs of injury *Routine Respiratory Exam Respiratory: Present normal respiratory effort, able to speak in complete sentences and symmetric chest movement *Routine Cardiovascular Exam Cardiovascular: Present RRR *Routine Abdominal Exam Abdominal: Present soft and normoactive bowel sounds *Routine Rectal Exam Rectal:: other *Routine Genitalia Exam Genitalia:: normal male Comment:: edematous *Routine Extremities Exam Extremities: Present edema and tenderness Comments: Right leg amputated below the knee stump is healed well. Left leg with multiple areas of weeping and redness edema from mid calf to foot. Area of amputation of the 2 toes of skin remains closed Routine Back/Spine/Pelvis Exam Back/Spine: Present CVA tenderness and paraspinal tenderness *Routine Skin Exam Skin: Present erythema, lesions (Right buttocks cheek area of torn skin, was covered and dressed when arrived at the hospital. Left lower extremity starting approximately mid calf redness with edema) and wounds Comments: Left foot is also edematous you can see where the amputation take place the surgical site is still closed but the foot is swollen red with some with weeping of fluid from the top of the foot. The skin to the lower extremity is slightly pale but is pink, no signs of cyanosis *Routine Neurological Exam Neurological: Present alert, oriented X3, abnormal gait, moving all extremities and normal tone Comments: Patient is nonambulatory but he can move his left leg Routine Psychiatric Exam Psychiatric: Present normal affect and normal thought process Detailed Skin Exam left foot: Type of rash: Present blisters H&P: Result Imaging and Cardiology EKG: Status: image reviewed by me, Preliminary report and final report Foot Xray : Status: image reviewed by me, Preliminary report and final report Assessment and Plan *Assessment and plan (1) Cellulitis of left leg: Status: Acute Category: Medical Code(s): L03.116 - Cellulitis of left lower limb (2) Osteomyelitis: Status: Acute Qualifiers: Laterality: left Osteomyelitis location: foot Osteomyelitis type: subacute Qualified Code(s): M86.272 - Subacute osteomyelitis, left ankle and foot Category: Medical Code(s): M86.9 - Osteomyelitis, unspecified (3) Chronic wound: Status: Acute Category: Medical Code(s): T14.8XXA - Other injury of unspecified body region, initial encounter (4) PAD (peripheral artery disease): Status: Acute Category: Medical Code(s): I73.9 - Peripheral vascular disease, unspecified (5) Diabetes: Status: Acute Qualifiers: Diabetes mellitus complication detail: with peripheral angiopathy without gangrene Diabetes mellitus complication status: with circulatory complication Diabetes mellitus care home insulin use: with technical solutions engineer use Diabetes mellitus type: type 2 Qualified Code(s): E11.51 - Type 2 diabetes mellitus with diabetic peripheral angiopathy without gangrene; Z79.4 - cellular equipment installer (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) use of insulin Category: Medical Code(s): E11.9 - Type 2 diabetes mellitus without complications (6) Functional paraparesis: Status: Acute Category: Medical Code(s): F44.4 - Conversion disorder with motor symptom or deficit (7) Diabetic foot infection: Status: Acute Category: Medical Code(s): E11.628 - Type 2 diabetes mellitus with other skin complications; L08.9 - Local infection of the skin and subcutaneous tissue, unspecified (8) Seizure disorder: Status: Chronic Category: Medical Code(s): G40.909 - Epilepsy, unspecified, not intractable, without status epilepticus (9) HTN (hypertension): Status: Chronic Qualifiers: Hypertension type: primary hypertension Qualified Code(s): I10 - Essential (primary) hypertension Category: Medical Code(s): I10 - Essential (primary) hypertension (10) Self-care deficit: Status: Acute Category: Medical Code(s): Z78.9 - Other specified health status (11) Obesity (BMI 30-39.9): Status: Chronic Category: Medical Code(s): E66.9 - Obesity, unspecified (12) Lumbar spinal stenosis: Status: Acute Qualifiers: Neurogenic claudication status: unspecified Qualified Code(s): M48.061 - Spinal stenosis, lumbar region without neurogenic claudication Category: Medical Code(s): M48.061 - Spinal stenosis, lumbar region without neurogenic claudication Plan 69-year-old male with PMHx of multiple comorbidities including hypertension, hyperlipidemia, recurrent cellulitis of bilateral lower extremities, chronic nonhealing wounds of the bilateral lower extremities, peripheral artery disease s/p right AKA, and multiple nonhealing wounds of the left lower extremity s/p recent 3rd and 4th toes amputation, and discharged home with Home health services who presented emergency department for evaluation of his left foot wound. After discussion of findings agreed for inpatient management. Problems addressed as follows: CELLULITIS Diabetic foot infection Metatarsal osteomyelitis -continue IV abx while inpatient, - Blood cultures obtained and pending. -- podiatry following DM -SSI insulin, FSGS ACHS -Glucose this morning 135 -A1c 6.3, well-controlled. continue long-acting insulin glargine 42 units nightly SEIZURE DISORDER PVD HTN HLD -Continue home medications aspirin 81 mg, Plavix 75 mg daily, atorvastatin 40 mg, finasteride 5mg, lamotrigine 150 mg, losartan 50 mg daily, and metoprolol 25 mg daily -Recent stenting of left lower extremity BPH Incontinence - continue finasteride and tamsulosin 0.8mg QHS - indwelling catheter due to breakdown on sacrum and incontinence OBESITY -complicates all aspects of care FULL CODE DIABETIC DIET Rounded on patient after nurse practitioner. Personally examined and interviewed patient. Agree with exam findings and care plan as documented.
[2024-03-27] MEDS: METRONIDAZ/SOD CHL 500 MG/100 ML PIGGYBACK 100 MG IV (21:24)
--- NOTE | 2024-03-27 21:30 | PC.NURSE ---
Notified [facility] administrator of need for bed for admission.
[2024-03-27] MEDS: KETOROLAC 30MG/ML VIAL 30 MG IV (21:34)
[2024-03-27] MEDS: ONDANSETRON 4MG/2ML VIAL 4 MG IV (21:34)
[2024-03-27] MEDS: ACETAMINOPHEN 1,000MG/100ML VIAL 1000 MG IV (21:45)
--- NOTE | 2024-03-27 22:00 | PC.NURSE ---
Report called to JESSEE Glaser
--- NOTE | 2024-03-27 22:11 | PC.NURSE ---
Patient arrived to floor via stretcher from ED at 22:08.
[2024-03-27] MEDS: CEFEPIME HCL 2 GM in 0.9 % SODIUM CHLORIDE 100 ML IV (23:47)
[2024-03-28] VITALS (18 sets, daily range): BP systolic 104–143; BP diastolic 64–93; PULSE 73–96; RESP 14–20; TEMP 36.3–36.6; O2SAT 91–97; BMI 34.5
[2024-03-28] MEDS: 0.9 % SODIUM CHLORIDE 1000ML 1,000 ML 50 ML IV (00:32)
[2024-03-28] MEDS: METRONIDAZ/SOD CHL 500 MG/100 ML PIGGYBACK 100 MG IV ×2 (02:10→09:50)
[2024-03-28 06:37] LABS: Basophils % 0.6 % (0.1-2.0); Eosinophils # 0.2 K/mm3 (0.0-0.4); Hematocrit 25.1 % (42.0-52.0); Hemoglobin 8.3 g/dL (14.1-18.0); Lymphocytes # 1.2 K/mm3 (0.7-4.5); Lymphocytes % 28.3 % (10-50); Mean Corpuscular Volume 84.8 fl (80-94); Mean Platelet Volume 9.5 fl (7.4-10.4); Monocytes # 0.3 K/mm3 (0.1-1.0); Monocytes % 7.8 % (1.7-9.3); Neutrophils # 2.5 K/mm3 (1.8-7.8); Neutrophils % 59.3 % (37.0-80.0); Platelet Count 94 K/mm3 (142-424); Red Blood Count 2.96 M/mm3 (4.60-6.20); Red Cell Distribution Width 17.7 % (11.5-17.5); White Blood Count 4.3 K/mm3 (4.8-10.8)
[2024-03-28 06:40] LABS: POC Glucose,Bedside 100 (70-110)
[2024-03-28 06:50] LABS: Alanine Aminotransferase 20 U/L (12-78); Albumin Level 2.9 g/dl (3.5-5.0); Alkaline Phosphatase 89 U/L (38-126); Aspartate Amino Transferase 21 U/L (17-59); Bilirubin,Total 0.2 mg/dl (0.2-1.3); Blood Urea Nitrogen 20 mg/dl (9-20); Carbon Dioxide 26 mmol/L (22.0-30.0); Creatinine Clearance Estimated 112 mL/min (50-200); Estimated Glomerular Filt Rate 111 ml/min (>60); GFR (African American) 135 ML/MIN (>60); Globulin 2.9 g/dL (1.3-3.2); Glucose 101 mg/dl (74-100); Magnesium 1.6 mg/dl (1.6-2.3); Potassium 3.5 mmoL/L (3.5-5.1); Sodium 139 mmol/L (136-145); Total Protein,Serum 5.8 g/dl (6.3-8.2)
--- NOTE | 2024-03-28 06:53 | EXP.POD.CONS ---
Documented by User: Amanda Ascencio Sridharashley, IZABELLA 03/28/24 08:40 History of Present Illness *Admission Date: 03/27/24 *History of present illness: This is a 69-year-old male with PMHx of multiple comorbidities including hypertension, hyperlipidemia, recurrent cellulitis of bilateral lower extremities, chronic nonhealing wounds of the bilateral lower extremities, peripheral artery disease s/p right AKA, and multiple nonhealing wounds of the left lower extremity s/p recent 3rd and 4th toes amputation, and discharged home with Home health services who presented emergency department for evaluation of his left foot wound. Recommendation is to undergo amputation given that his prognosis of his left foot is poor however he has refused previously. He is wound care twice a week that sees him and change his dressings. They noticed some drainage from his stitches and caused him to return here for continued evaluation. He has some redness of his lower extremity which is unclear if it is worse than baseline. He otherwise has no other acute complaints. 03/28/24: Podiatry consult Patient resting in bed, discussed holding off on eating breakfast until after getting CT angiogram L Lower extremity and EBENEZER's completed to determine if he will need any surgical procedures done today. Patient states having some pain in his left lower leg and foot from the cellulitis. [facility] Disclaimer: The information contained in this section may have been updated after the patient was seen, as this information can be updated by other users. 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 Acute febrile illness Atrial flutter Bilateral cellulitis of lower leg Cellulitis Diabetes mellitus Dystrophia unguium Fatigue Fever Infestation by fly larvae Lymphedema of both lower extremities Malaise Obesity with body mass index (BMI) of 30.0 to 39.9 Peripheral vascular disease Renal insufficiency Spinal stenosis of cervical region Spinal stenosis of lumbar region Systemic inflammatory response syndrome (SIRS) Ulcers of both lower extremities Uncontrolled diabetes mellitus History of left heart catheterization (LHC) Surgical History H/O Spinal surgery Family History Mother Breast cancer Family history of myocardial infarction Social History (Updated 03/27/24 @ 22:53 by Jailyn Meyers RN) Smoking Status: Never smoker alcohol intake: never substance use type: marijuana current occupational status: retired and disabled Travel in the last 8 weeks: None household members: family caffeine: No Meds Home Medications and Allergies Home Medications Medication Instructions Recorded Confirmed Type aspirin 81 mg tablet,delayed 81 mg PO DAILY 04/20/23 03/27/24 History release buspirone 5 mg tablet 5 mg PO TID 04/20/23 03/27/24 History docusate sodium 250 mg capsule 250 mg PO BID 04/20/23 03/27/24 History finasteride 5 mg tablet 5 mg PO DAILY PROSTATE 04/20/23 03/27/24 History furosemide 40 mg tablet 40 mg PO DAILY Fluid 04/20/23 03/27/24 History lamotrigine 100 mg tablet 100 mg PO BID 04/20/23 03/27/24 History losartan 50 mg tablet 50 mg PO DAILY 04/20/23 03/27/24 History lamotrigine 150 mg tablet 150 mg PO HS Seizures 04/21/23 03/27/24 History insulin glargine 100 unit/mL (3 42 unit SQ HS 06/04/23 03/27/24 History mL) subcutaneous pen (Lantus Solostar U-100 Insulin) tamsulosin 0.4 mg capsule 0.8 mg PO HS 06/04/23 03/27/24 History clopidogrel 75 mg tablet (Plavix) 75 mg PO DAILY #30 tabs 06/08/23 03/28/24 Rx metoprolol succinate 25 mg 25 mg PO DAILY #30 tabs 06/08/23 03/28/24 Rx tablet,extended release 24 hr atorvastatin 40 mg tablet 40 mg PO DAILY 03/03/24 03/27/24 History baclofen 10 mg tablet 10 mg PO BIDP PRN Muscle Spasm 03/03/24 03/28/24 History ferrous sulfate 325 mg (65 mg 325 mg PO DAILY 03/03/24 03/27/24 History iron) tablet pantoprazole 40 mg tablet,delayed 40 mg PO DAILY 03/03/24 03/27/24 History release metoclopramide HCl 5 mg tablet 5 mg PO BID 03/27/24 03/27/24 History New Prescriptions to Start Prescriptions: Allergies Allergy/AdvReac Type Severity Reaction Status Date / Time hydrocodone [From LORTAB] Allergy Unknown NA-NAUSEA/V Verified 06/04/23 16:47 OMITING levetiracetam [From Keppra] Allergy Verified 03/03/24 23:56 tramadol AdvReac Unknown Verified 06/04/23 16:47 allergy reaction Exam (Inpt) Vital signs and Labs for Last 24 Hours: Temp Pulse Resp BP Pulse Ox O2 Del Method 97.6 F 88 18 122/75 97 Room Air 03/28/24 04:00 03/28/24 04:00 03/28/24 04:00 03/28/24 04:00 03/28/24 04:00 03/28/24 05:00 Laboratory Results - last 24 hr 03/27/24 17:20: Sodium 140, Potassium 4.3, Chloride 109 H, Carbon Dioxide 20 L, Anion Gap 15.3 H, BUN 21 H, Creatinine 0.70, Estimated Creat Clear 115, Estimated GFR 111, Est GFR ( Amer) 135, Glucose 110 H, Calcium 8.7, Total Bilirubin 0.5, AST 33, ALT 26, Alkaline Phosphatase 89, C-Reactive Protein 36.1 H, Total Protein 6.8, Albumin 3.7, Globulin 3.1, Albumin/Globulin Ratio 1.2 03/27/24 19:37: WBC 6.8, RBC 3.11 L, Hgb 8.5 L, Hct 25.7 L, MCV 82.7, MCH 27.2, MCHC 33.0, RDW 17.8 H, Plt Count 115 L, MPV 9.7, Neut % (Auto) 67.7, Lymph % (Auto) 23.9, [place]vert % (Auto) 5.8, Eos % (Auto) 2.2, Baso % (Auto) 0.3, Neut # (Auto) 4.6, Lymph # (Auto) 1.6, Calvert # (Auto) 0.4, Eos # (Auto) 0.2, Baso # (Auto) 0.0, ESR 124 H 03/28/24 06:34: POC Glucose 100 I & O for Labs for Last 24 Hours: Intake & Output 03/25/24 03/26/24 03/27/24 03/28/24 23:59 23:59 23:59 23:59 Weight 255 lb 6.4 oz 255 lb 1.197 oz Microbiology Reports for the Last 24 Hours: Microbiology 03/03/24 20:20 Blood Blood Culture - Preliminary NO GROWTH AFTER 48 HOURS 03/03/24 20:10 Blood Blood Culture - Preliminary NO GROWTH AFTER 48 HOURS Constitutional: Present no acute distress, obese and cooperative Head: Present normocephalic Eye: Present as per HPI Neck: Present normal inspection and trachea midline Respiratory: Present normal respiratory effort and able to speak in complete sentences Cardiac: Present posterior tibial pulses present and pedal pulses present Comment:: 2+ pedal edema, palpable DP/PT pulses to Left foot, Right AKA noted. Has recent LLE stent. GI: Present soft Comments:: deferred Rectal (male): Present deferred (male): Present deferred Extremities: Present normal capillary refill and edema (2+ Left pedal edema, LLE cellulitis, Ulcer to L Lower leg cultured.); Absent calf tenderness Comment:: Left 2nd and 3rd toe amp approximately 1 month ago, scant drainage noted and was cultured this morning. Sutures intact. Cellulitis noted to left foot but mainly to left lower leg. Multiple wounds to LLE skin, all have 100% fibrotic base. WCx taken from left foot wound. Left heel ulcer. Post: 50% granular, 50% fibrotic, 0.5x0.5x0.4cm. Wound to left 2-3rd amp site. 100% intact scab/eschar. Skin: Present intact, erythema, warm and wounds (Left lower leg, Left 2nd-3rd toe amp, Left heel) Neuro: Present Motor Function Intact, Grossly Intact, oriented x 3, tone normal and moves all extremities Comment:: Hx of neuropathy Ankle: left: swelling (LLE edema, erythema), left: tenderness and left: decreased ROM (Right AKA noted) Feet/Toes: left: swelling (L 2-3rd toe amp site), left: tenderness (amp site) and left: wound and bilateral: amputation (L 2nd & 3rd toes, Right AKA), bilateral: nail abnormalities, bilateral: onychomycosis (suspected ) and bilateral: decreased ROM Inspection: Present foot deformity deformity: Present hammer toes, nail disorder, skin break, infection (cellulitis Left lower leg and foot ) and other (Right AKA, left 2nd and 3rd toe amp.) Pulses: L dorsalis pedis pulse: normal, R dorsalis pedis pulse: normal, L posterior tibial pulse: normal and R posterior tibial pulse: normal CFT: normal: CFT Results Labs 03/28/24 06:12 03/28/24 06:12 Labs: Abnormal lab results 03/27/24 03/27/24 Range/Units 17:20 19:37 RBC 3.11 L (4.60-6.20) M/mm3 Hgb 8.5 L (14.1-18.0) g/dL Hct 25.7 L (42.0-52.0) % RDW 17.8 H (11.5-17.5) % Plt Count 115 L (142-424) K/mm3 ESR 124 H (0-20) mm/hr Chloride 109 H (98-107) mmol/L Carbon Dioxide 20 L (22.0-30.0) mmol/L Anion Gap 15.3 H (5-15) mEq/L BUN 21 H (9-20) mg/dl Glucose 110 H (74-100) mg/dl C-Reactive Protein 36.1 H (0-4) mg/L H & H 03/27/24 Range/Units 19:37 Hgb 8.5 L (14.1-18.0) g/dL Hct 25.7 L (42.0-52.0) % All other labs normal. Assessment and Plan *Assessment and plan (1) Cellulitis of left leg: Status: Acute Category: Medical Code(s): L03.116 - Cellulitis of left lower limb (2) Osteomyelitis: Status: Acute Qualifiers: Laterality: left Osteomyelitis location: foot Osteomyelitis type: subacute Qualified Code(s): M86.272 - Subacute osteomyelitis, left ankle and foot Category: Medical Code(s): M86.9 - Osteomyelitis, unspecified (3) Chronic wound: Status: Acute Category: Medical Code(s): T14.8XXA - Other injury of unspecified body region, initial encounter (4) PAD (peripheral artery disease): Status: Acute Category: Medical Code(s): I73.9 - Peripheral vascular disease, unspecified (5) Diabetes: Status: Acute Qualifiers: Diabetes mellitus complication detail: with peripheral angiopathy without gangrene Diabetes mellitus complication status: with circulatory complication Diabetes mellitus senior living insulin use: with vermin exterminator use Diabetes mellitus type: type 2 Qualified Code(s): E11.51 - Type 2 diabetes mellitus with diabetic peripheral angiopathy without gangrene; Z79.4 - vermin exterminator (current) use of insulin Category: Medical Code(s): E11.9 - Type 2 diabetes mellitus without complications (6) Functional paraparesis: Status: Acute Category: Medical Code(s): F44.4 - Conversion disorder with motor symptom or deficit (7) Diabetic foot infection: Status: Acute Category: Medical Code(s): E11.628 - Type 2 diabetes mellitus with other skin complications; L08.9 - Local infection of the skin and subcutaneous tissue, unspecified (8) Seizure disorder: Status: Chronic Category: Medical Code(s): G40.909 - Epilepsy, unspecified, not intractable, without status epilepticus (9) HTN (hypertension): Status: Chronic Qualifiers: Hypertension type: primary hypertension Qualified Code(s): I10 - Essential (primary) hypertension Category: Medical Code(s): I10 - Essential (primary) hypertension (10) Self-care deficit: Status: Acute Category: Medical Code(s): Z78.9 - Other specified health status (11) Obesity (BMI 30-39.9): Status: Chronic Category: Medical Code(s): E66.9 - Obesity, unspecified (12) Lumbar spinal stenosis: Status: Acute Qualifiers: Neurogenic claudication status: unspecified Qualified Code(s): M48.061 - Spinal stenosis, lumbar region without neurogenic claudication Category: Medical Code(s): M48.061 - Spinal stenosis, lumbar region without neurogenic claudication Plan 69-year-old male with PMHx of multiple comorbidities including hypertension, hyperlipidemia, recurrent cellulitis of bilateral lower extremities, chronic nonhealing wounds of the bilateral lower extremities, peripheral artery disease s/p right AKA, and multiple nonhealing wounds of the left lower extremity s/p recent 3rd and 4th toes amputation, and discharged home with Home health services who presented emergency department for evaluation of his left foot wound. After discussion of findings agreed for inpatient management. Problems addressed as follows: CELLULITIS Diabetic foot infection Metatarsal osteomyelitis -continue IV abx while inpatient, - Blood cultures obtained and pending. Left DFU amp site : -wound culture obtained from Left amputation site drainage- pending -ordered CT angio LLE and EBENEZER's pending results will determine if he will need surgery. -Keep patient NPO until testing complted. 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 Acute febrile illness Atrial flutter Bilateral cellulitis of lower leg Cellulitis Diabetes mellitus Dystrophia unguium Fatigue Fever Infestation by fly larvae Lymphedema of both lower extremities Malaise Obesity with body mass index (BMI) of 30.0 to 39.9 Peripheral vascular disease Renal insufficiency Spinal stenosis of cervical region Spinal stenosis of lumbar region Systemic inflammatory response syndrome (SIRS) Ulcers of both lower extremities Uncontrolled diabetes mellitus History of left heart catheterization (LHC) Surgical History H/O Spinal surgery Family History Mother Breast cancer Family history of myocardial infarction Social History (Updated 03/27/24 @ 22:53 by Jailyn Meyers RN) Smoking Status: Never smoker alcohol intake: never substance use type: marijuana current occupational status: retired and disabled Travel in the last 8 weeks: None household members: family caffeine: No Meds Home Medications and Allergies Home Medications Medication Instructions Recorded Confirmed Type aspirin 81 mg tablet,delayed 81 mg PO DAILY 04/20/23 03/27/24 History release buspirone 5 mg tablet 5 mg PO TID 04/20/23 03/27/24 History docusate sodium 250 mg capsule 250 mg PO BID 04/20/23 03/27/24 History finasteride 5 mg tablet 5 mg PO DAILY PROSTATE 04/20/23 03/27/24 History furosemide 40 mg tablet 40 mg PO DAILY Fluid 04/20/23 03/27/24 History lamotrigine 100 mg tablet 100 mg PO BID 04/20/23 03/27/24 History losartan 50 mg tablet 50 mg PO DAILY 04/20/23 03/27/24 History lamotrigine 150 mg tablet 150 mg PO HS Seizures 04/21/23 03/27/24 History insulin glargine 100 unit/mL (3 42 unit SQ HS 06/04/23 03/27/24 History mL) subcutaneous pen (Lantus Solostar U-100 Insulin) tamsulosin 0.4 mg capsule 0.8 mg PO HS 06/04/23 03/27/24 History clopidogrel 75 mg tablet (Plavix) 75 mg PO DAILY #30 tabs 06/08/23 03/28/24 Rx metoprolol succinate 25 mg 25 mg PO DAILY #30 tabs 06/08/23 03/28/24 Rx tablet,extended release 24 hr atorvastatin 40 mg tablet 40 mg PO DAILY 03/03/24 03/27/24 History baclofen 10 mg tablet 10 mg PO BIDP PRN Muscle Spasm 03/03/24 03/28/24 History ferrous sulfate 325 mg (65 mg 325 mg PO DAILY 03/03/24 03/27/24 History iron) tablet pantoprazole 40 mg tablet,delayed 40 mg PO DAILY 03/03/24 03/27/24 History release metoclopramide HCl 5 mg tablet 5 mg PO BID 03/27/24 03/27/24 History New Prescriptions to Start Prescriptions: Allergies Allergy/AdvReac Type Severity Reaction Status Date / Time hydrocodone [From LORTAB] Allergy Unknown NA-NAUSEA/V Verified 06/04/23 16:47 OMITING levetiracetam [From Keppra] Allergy Verified 03/03/24 23:56 tramadol AdvReac Unknown Verified 06/04/23 16:47 allergy reaction Results Labs 03/28/24 06:12 03/28/24 06:12 Assessment and Plan *Assessment and plan (1) Cellulitis of left leg: Status: Acute Category: Medical Code(s): L03.116 - Cellulitis of left lower limb (2) Osteomyelitis: Status: Acute Qualifiers: Laterality: left Osteomyelitis location: foot Osteomyelitis type: subacute Qualified Code(s): M86.272 - Subacute osteomyelitis, left ankle and foot Category: Medical Code(s): M86.9 - Osteomyelitis, unspecified (3) Chronic wound: Status: Acute Category: Medical Code(s): T14.8XXA - Other injury of unspecified body region, initial encounter (4) PAD (peripheral artery disease): Status: Acute Category: Medical Code(s): I73.9 - Peripheral vascular disease, unspecified (5) Diabetes: Status: Acute Qualifiers: Diabetes mellitus complication detail: with peripheral angiopathy without gangrene Diabetes mellitus complication status: with circulatory complication Diabetes mellitus vermin exterminator insulin use: with vermin exterminator use Diabetes mellitus type: type 2 Qualified Code(s): E11.51 - Type 2 diabetes mellitus with diabetic peripheral angiopathy without gangrene; Z79.4 - shelter (current) use of insulin Category: Medical Code(s): E11.9 - Type 2 diabetes mellitus without complications (6) Functional paraparesis: Status: Acute Category: Medical Code(s): F44.4 - Conversion disorder with motor symptom or deficit (7) Diabetic foot infection: Status: Acute Category: Medical Code(s): E11.628 - Type 2 diabetes mellitus with other skin complications; L08.9 - Local infection of the skin and subcutaneous tissue, unspecified (8) Seizure disorder: Status: Chronic Category: Medical Code(s): G40.909 - Epilepsy, unspecified, not intractable, without status epilepticus (9) HTN (hypertension): Status: Chronic Qualifiers: Hypertension type: primary hypertension Qualified Code(s): I10 - Essential (primary) hypertension Category: Medical Code(s): I10 - Essential (primary) hypertension (10) Self-care deficit: Status: Acute Category: Medical Code(s): Z78.9 - Other specified health status (11) Obesity (BMI 30-39.9): Status: Chronic Category: Medical Code(s): E66.9 - Obesity, unspecified (12) Lumbar spinal stenosis: Status: Acute Qualifiers: Neurogenic claudication status: unspecified Qualified Code(s): M48.061 - Spinal stenosis, lumbar region without neurogenic claudication Category: Medical Code(s): M48.061 - Spinal stenosis, lumbar region without neurogenic claudication Plan 69-year-old male with PMHx of multiple comorbidities including hypertension, hyperlipidemia, recurrent cellulitis of bilateral lower extremities, chronic nonhealing wounds of the bilateral lower extremities, peripheral artery disease s/p right AKA, and multiple nonhealing wounds of the left lower extremity s/p recent 3rd and 4th toes amputation, and discharged home with Home health services who presented emergency department for evaluation of his left foot wound. After discussion of findings agreed for inpatient management. Problems addressed as follows: CELLULITIS Diabetic foot infection Metatarsal osteomyelitis -continue IV abx while inpatient. -Blood cultures obtained and pending. Left DFU amp site : -wound culture obtained from Left amputation site drainage- pending -ordered CT angio LLE and EBENEZER's pending results will determine if he will need surgery. -Keep patient NPO until testing completed. -Site cleaned and lightly debrided, Xeroform, Betadine soaked gauze, dry 4 x 4, Kerlix and Stewart wrap applied -Podiatry to continue to follow while inpatient Dr Faust: -patient was seen again this afternoon to review results of EBENEZER and CT angio -irregularity to left 3-4th met, could be new osteomyelitis -abscess seen on CT - does have open wound, consult G.S. -plan for foot: right metatarsal debridement with open bone biopsy and possible TMA today -NPO since am -risks/benefits or surgery discussed with patient in detail. Including but not limited to continued, worsening or recurrent infection, need for long-term oral or IV antibiotics, loss of partial foot, still high risk for further amputation surgery including transmetatarsal versus below-knee amputation, delayed healing of soft tissue or bone, CRPS, DVT/PE and anesthesia complications including -discussed with Dr Coto-antionette to proceed with surgery
[2024-03-28 07:06] LABS: Anion Gap 6.5 mEq/L (5-15); Chloride 110 mmol/L (98-107)
--- NOTE | 2024-03-28 08:04 | CT_ITS ---
FINAL REPORT TECHNIQUE: Postcontrast images of the pelvis and extremities were performed by computed tomography. Extensive 3-D reconstruction images were performed. A CTA was performed. This study was performed with techniques to keep radiation doses as low as reasonably achievable (ALARA). Individualized dose reduction techniques using automated exposure control or adjustment of mA and/or kV according to the patient''s size were employed. CLINICAL HISTORY: LLE cellulitis, non healing DFU COMPARISON: None FINDINGS: Pelvis: The urinary bladder is unremarkable. The appendix is not identified. There is no free fluid or adenopathy. There is a peripherally enhancing collection in the left buttocks along the medial left gluteal fold measuring 3.9 cm in size, that may represent an abscess. There is diffuse soft tissue edema in the distal thigh, with fatty replacement of the musculature of the left lower extremity. No loculated fluid collection is identified. The second and third toes have been amputated. There is irregularity of the distal third and fourth metatarsals, and osteomyelitis is not excluded. There is no free air or loculated fluid collection in the left leg, although diffuse cellulitis is present. CTA LEFT lower extremity: The portions of the iliac vessels visualized are unremarkable. The femoral vessels are unremarkable other than mild atherosclerotic calcification in the distal superficial femoral artery. The SFA is without significant stenosis. The popliteal artery is unremarkable. The trifurcation is unremarkable. The anterior tibial, posterior tibial, and peroneal vessels cross the ankle properly. IMPRESSION: Atherosclerotic calcification in the distal superficial femoral artery, with three-vessel runoff to the ankle. Peripheral enhancing collection in the left buttocks along the left medial gluteal fold as described, may represent an abscess. Diffuse soft tissue edema in the left lower extremity, particularly in the calf, without a loculated fluid collection to suggest an abscess. There is irregularity of the distal third and fourth metatarsals, and osteomyelitis is not excluded. Reviewed, Interpreted and Dictated by Guerda Bermudez MD Transcribed by Latha Cunha Authenticated and [facility]
--- NOTE | 2024-03-28 08:08 | US_ITS ---
FINAL REPORT CLINICAL HISTORY: LLE chronic non healing DFU, cellulitis, DM, HTN, HLD, Obesity, PAD, cellulitis COMPARISON: None FINDINGS: LEFT ANKLE-BRACHIAL PRESSURE INDICES Pressure indices are as follows: LEFT LOWER EXTREMITY: Ankle-brachial pressure index: 1.28 Comments: Normal Right lower extremity not obtained as the patient is an AKA amputee. IMPRESSION: No evidence of significant obstructive peripheral vascular disease of the left lower extremity Reviewed, Interpreted and Dictated by Guerda Bermudez MD Transcribed by Shagufta Srivastava Authenticated and . [facility]
[2024-03-28] MEDS: PANTOPRAZOLE 40MG TABLET 40 MG PO (09:07)
[2024-03-28] MEDS: ENOXAPARIN 40MG/0.4ML SYRINGE 40 MG SQ (09:07)
--- NOTE | 2024-03-28 09:30 | HMH.PHAINT1 ---
Pharmacy Intervention Comments: MEDICATION RECONCILIATION COMPLETED ON PATIENT USING EXTERNAL FILL HISTORY FROM PHARMACY AND DISCHARGE SUMMARY FROM PREVIOUS ADMISSION. -NADIA DIAZ, MALLIKAD
--- NOTE | 2024-03-28 09:35 | EXP.PHA.CONS ---
Pharmacy Consult Date: 03/28/24 Time: 09:35 Referring provider: DR. SAENZ Reason for Consult:: VANCOMYCIN DOSING Allergies Allergy/AdvReac Type Severity Reaction Status Date / Time hydrocodone [From LORTAB] Allergy Unknown NA-NAUSEA/V Verified 06/04/23 16:47 OMITING levetiracetam [From Keppra] Allergy Verified 03/03/24 23:56 tramadol AdvReac Unknown Verified 06/04/23 16:47 allergy reaction Home Medications Medication Instructions Recorded Confirmed Type aspirin 81 mg tablet,delayed 81 mg PO DAILY 04/20/23 03/27/24 History release buspirone 5 mg tablet 5 mg PO TID 04/20/23 03/27/24 History docusate sodium 250 mg capsule 250 mg PO BID 04/20/23 03/27/24 History finasteride 5 mg tablet 5 mg PO DAILY PROSTATE 04/20/23 03/27/24 History furosemide 40 mg tablet 40 mg PO DAILY Fluid 04/20/23 03/27/24 History lamotrigine 100 mg tablet 100 mg PO BID 04/20/23 03/27/24 History losartan 50 mg tablet 50 mg PO DAILY 04/20/23 03/27/24 History lamotrigine 150 mg tablet 150 mg PO HS Seizures 04/21/23 03/27/24 History insulin glargine 100 unit/mL (3 42 unit SQ HS 06/04/23 03/27/24 History mL) subcutaneous pen (Lantus Solostar U-100 Insulin) tamsulosin 0.4 mg capsule 0.8 mg PO HS 06/04/23 03/27/24 History clopidogrel 75 mg tablet (Plavix) 75 mg PO DAILY #30 tabs 06/08/23 03/28/24 Rx metoprolol succinate 25 mg 25 mg PO DAILY #30 tabs 06/08/23 03/28/24 Rx tablet,extended release 24 hr atorvastatin 40 mg tablet 40 mg PO DAILY 03/03/24 03/27/24 History baclofen 10 mg tablet 10 mg PO BIDP PRN Muscle Spasm 03/03/24 03/28/24 History ferrous sulfate 325 mg (65 mg 325 mg PO DAILY 03/03/24 03/27/24 History iron) tablet pantoprazole 40 mg tablet,delayed 40 mg PO DAILY 03/03/24 03/27/24 History release metoclopramide HCl 5 mg tablet 5 mg PO BID 03/27/24 03/27/24 History New Prescriptions to Start Prescriptions: Height: 1.83 m Weight: 115.7 kg Laboratory Results:: Laboratory Results - last 24 hr 03/27/24 17:20: Sodium 140, Potassium 4.3, Chloride 109 H, Carbon Dioxide 20 L, Anion Gap 15.3 H, BUN 21 H, Creatinine 0.70, Estimated Creat Clear 115, Estimated GFR 111, Est GFR ( Amer) 135, Glucose 110 H, Calcium 8.7, Total Bilirubin 0.5, AST 33, ALT 26, Alkaline Phosphatase 89, C-Reactive Protein 36.1 H, Total Protein 6.8, Albumin 3.7, Globulin 3.1, Albumin/Globulin Ratio 1.2 03/27/24 19:37: WBC 6.8, RBC 3.11 L, Hgb 8.5 L, Hct 25.7 L, MCV 82.7, MCH 27.2, MCHC 33.0, RDW 17.8 H, Plt Count 115 L, MPV 9.7, Neut % (Auto) 67.7, Lymph % (Auto) 23.9, [place] % (Auto) 5.8, Eos % (Auto) 2.2, Baso % (Auto) 0.3, Neut # (Auto) 4.6, Lymph # (Auto) 1.6, [place] # (Auto) 0.4, Eos # (Auto) 0.2, Baso # (Auto) 0.0, ESR 124 H 03/28/24 06:12: WBC 4.3 L D, RBC 2.96 L, Hgb 8.3 L, Hct 25.1 L, MCV 84.8, MCH 28.0, MCHC 33.0, RDW 17.7 H, Plt Count 94 L, MPV 9.5, Neut % (Auto) 59.3, Lymph % (Auto) 28.3, [place] % (Auto) 7.8, Eos % (Auto) 4.0, Baso % (Auto) 0.6, Neut # (Auto) 2.5, Lymph # (Auto) 1.2, [place] # (Auto) 0.3, Eos # (Auto) 0.2, Baso # (Auto) 0.0, Sodium 139, Potassium 3.5, Chloride 110 H, Carbon Dioxide 26, Anion Gap 6.5, BUN 20, Creatinine 0.70, Estimated Creat Clear 112, Estimated GFR 111, Est GFR ( Amer) 135, Glucose 101 H, Calcium 8.0 L, Magnesium 1.6, Total Bilirubin 0.2, AST 21 D, ALT 20, Alkaline Phosphatase 89, Total Protein 5.8 L, Albumin 2.9 L D, Globulin 2.9, Albumin/Globulin Ratio 1.0 L 03/28/24 06:34: POC Glucose 100 Medical History: Medical History (Updated 03/27/24 @ 21:16 by Augusto Saenz MD) Seizure CAD in [place] artery Acute febrile illness Atrial flutter Bilateral cellulitis of lower leg Cellulitis Diabetes mellitus Dystrophia unguium Fatigue Fever Infestation by fly larvae Lymphedema of both lower extremities Malaise Obesity with body mass index (BMI) of 30.0 to 39.9 Peripheral vascular disease Renal insufficiency Spinal stenosis of cervical region Spinal stenosis of lumbar region Systemic inflammatory response syndrome (SIRS) Ulcers of both lower extremities Uncontrolled diabetes mellitus History of left heart catheterization (LHC) Assessment and Plan Assessment and plan all Dx Assessment and Plan for all problems:: Pharmacokinetic dosing service Objective: Patient: Floor: Age: 69 yo Serum creatinine: 0.70 mg/dL Height: 72.0 Inches Weight (kg): 115.7 Assessment: IBW (kg): 77.60 Dosing wt(kg): 115.7 Estimated Creatinine clearance (ml/min): 107.8 CRCL method: Cockcroft and Gault using ibw(default). Drug selected: Vancomycin Loading dose (mg): Vd (liters): 92.6 (factor used: 0.8 L/kg) Emir (hr-1): 0.094 Half life (hrs): 7.37 CLvanco=?? 8.704 L/hr Recommended dose: 2250 mg Interval: 12 hrs Infusion time (hrs): 2.0 Predicted peak (mcg/mL): 32.8 Predicted trough (mcg/mL): 12.81 Total body weight is being used for vancomycin dosing. Recommendations: Give Vancomycin 2250 mg q 12 hrs with an expected Cpeak of 32.8 mcg/ml and an expected Ctrough of 12.81 mcg/ml AUC 0-24 /MURRAY Data: MURRAY 0.5 mcg/mL:?? AUC/MURRAY:? 1034.0 MURRAY 1.0 mcg/mL:?? AUC/MURRAY:? 517.0 --------- MURRAY 1.5 mcg/mL:?? AUC/MURRAY:? 344.7 MURRAY 2.0 mcg/mL:?? AUC/MURRAY:? 258.5 Thank you for the consult, will continue to follow. -NADIA DIAZ, MALLIKAD
[2024-03-28] MEDS: ONDANSETRON 4MG/2ML VIAL 4 MG IV (10:10)
[2024-03-28 11:10] LABS: POC Glucose,Bedside 116 (70-110)
[2024-03-28] MEDS: OXYCODONE 5MG IMMEDIATE RELEASE TABLET 5 MG PO ×2 (11:23→21:58)
--- NOTE | 2024-03-28 11:33 | PC.NURSE ---
pt off floor to CT
[2024-03-28] MEDS: 0.9 % SODIUM CHLORIDE 50 ML VIAL IV (12:09)
[2024-03-28] MEDS: IOPAMIDOL-370 (76%);100ML BOTTLE 100 ML IV (12:09)
[2024-03-28] MEDS: SODIUM CHLORIDE 0.9% 10ML SYR (RAD ONLY) 10 ML IV (12:09)
[2024-03-28] MEDS: MEROPENEM 1 GM in 0.9 % SODIUM CHLORIDE 100 ML IV ×2 (14:17→22:59)
--- NOTE | 2024-03-28 14:47 | PC.WOUNDNOTE ---
TWO OPEN AREAS AND POSSIBLE ABSCESS NOTED TO BOTTOM.
[2024-03-28] MEDS: VANCOMYCIN HCL 2,250 MG in 0.9 % SODIUM CHLORIDE 250 ML 125 MG IV (15:37)
--- NOTE | 2024-03-28 15:37 | EXP.ACUTE.PN ---
Subjective *Date: 03/28/24 *Time: 16:46 Interval history: Having throbbing pain in left leg. Remains afebrile and stable on room air. N.p.o. for possible surgery today. Podiatry consulted and assisting with care. Denies any chest pain or shortness of breath. On further questioning, reports pain in left gluteus. Medical Exam Vital signs and Labs for Last 24 Hours: Vital Signs Temp Pulse Pulse Resp BP BP Pulse Ox 03/28/24 14:49 03/28/24 13:00 03/28/24 10:50 03/28/24 08:48 03/28/24 08:00 03/28/24 08:00 97.7 F 96 H 20 112/64 97 03/28/24 07:00 03/28/24 05:00 03/28/24 04:00 97.6 F 88 18 122/75 97 03/28/24 03:00 03/28/24 01:00 03/27/24 23:00 03/27/24 22:58 98.5 F 95 H 16 161/72 H 96 03/27/24 22:00 98.5 F 98 H 20 116/72 03/27/24 21:30 94 H 20 118/66 93 L 03/27/24 21:01 100 H 20 110/84 95 03/27/24 20:30 104 H 21 112/65 95 03/27/24 20:00 104 H 17 126/59 L 94 L 03/27/24 19:30 99 H 20 104/56 L 95 03/27/24 17:01 98.4 F 100 H 16 122/58 L 98 O2 Del Method 03/28/24 14:49 Room Air 03/28/24 13:00 Room Air 03/28/24 10:50 Room Air 03/28/24 08:48 Room Air 03/28/24 08:00 Room Air 03/28/24 08:00 Room Air 03/28/24 07:00 Room Air 03/28/24 05:00 Room Air 03/28/24 04:00 Room Air 03/28/24 03:00 Room Air 03/28/24 01:00 Room Air 03/27/24 23:00 Room Air 03/27/24 22:58 Room Air 03/27/24 22:00 Room Air 03/27/24 21:30 Room Air 03/27/24 21:01 Room Air 03/27/24 20:30 Room Air 03/27/24 20:00 Room Air 03/27/24 19:30 Room Air 03/27/24 17:01 Room Air Intake and Output 03/27/24 03/28/24 03/28/24 23:59 07:59 15:59 Other: Weight 115.847 kg 115.7 kg 115.7 kg Patient Weight 03/28/24 23:59 Weight 115.7 kg Laboratory Results - last 24 hr 03/27/24 17:20: Sodium 140, Potassium 4.3, Chloride 109 H, Carbon Dioxide 20 L, Anion Gap 15.3 H, BUN 21 H, Creatinine 0.70, Estimated Creat Clear 115, Estimated GFR 111, Est GFR ( Amer) 135, Glucose 110 H, Calcium 8.7, Total Bilirubin 0.5, AST 33, ALT 26, Alkaline Phosphatase 89, C-Reactive Protein 36.1 H, Total Protein 6.8, Albumin 3.7, Globulin 3.1, Albumin/Globulin Ratio 1.2 03/27/24 19:37: WBC 6.8, RBC 3.11 L, Hgb 8.5 L, Hct 25.7 L, MCV 82.7, MCH 27.2, MCHC 33.0, RDW 17.8 H, Plt Count 115 L, MPV 9.7, Neut % (Auto) 67.7, Lymph % (Auto) 23.9, [place] % (Auto) 5.8, Eos % (Auto) 2.2, Baso % (Auto) 0.3, Neut # (Auto) 4.6, Lymph # (Auto) 1.6, [place] # (Auto) 0.4, Eos # (Auto) 0.2, Baso # (Auto) 0.0, ESR 124 H 03/28/24 06:12: WBC 4.3 L D, RBC 2.96 L, Hgb 8.3 L, Hct 25.1 L, MCV 84.8, MCH 28.0, MCHC 33.0, RDW 17.7 H, Plt Count 94 L, MPV 9.5, Neut % (Auto) 59.3, Lymph % (Auto) 28.3, [place] % (Auto) 7.8, Eos % (Auto) 4.0, Baso % (Auto) 0.6, Neut # (Auto) 2.5, Lymph # (Auto) 1.2, [place] # (Auto) 0.3, Eos # (Auto) 0.2, Baso # (Auto) 0.0, Sodium 139, Potassium 3.5, Chloride 110 H, Carbon Dioxide 26, Anion Gap 6.5, BUN 20, Creatinine 0.70, Estimated Creat Clear 112, Estimated GFR 111, Est GFR ( Amer) 135, Glucose 101 H, Calcium 8.0 L, Magnesium 1.6, Total Bilirubin 0.2, AST 21 D, ALT 20, Alkaline Phosphatase 89, Total Protein 5.8 L, Albumin 2.9 L D, Globulin 2.9, Albumin/Globulin Ratio 1.0 L 03/28/24 06:34: POC Glucose 100 03/28/24 11:02: POC Glucose 116 H I & O for Labs for Last 24 Hours: Intake & Output 03/25/24 03/26/24 03/27/24 03/28/24 23:59 23:59 23:59 23:59 Weight 115.847 kg 115.7 kg Microbiology Reports for the Last 24 Hours: Microbiology 03/28/24 07:30 Foot,Left - Drainage Gram Stain - Final Constitutional: Present no acute distress, obese, chronically ill appearing and cooperative Head: Present atraumatic and normocephalic ENT: Present normal exam Neck: Present normal inspection Respiratory: Present normal respiratory effort; Absent rhonchi, wheezes or crackles Cardiac: Present Reg Rate and Rhythm GI: Present soft and normal bowel sounds; Absent distention or tenderness Comments:: Left gluteus with fluctuant tender lesion concerning for abscess Extremities: Present normal inspection and full ROM Comment:: Right [id number] amputation; left foot and Stewart wrap and bandage Skin: Present intact, erythema (Mild, left anterior burrell), dry (Flaky skin on left lower extremity) and pallor Neuro: Present Grossly Intact, alert, awake, oriented x 3 and moves all extremities Comment:: Absent sensation in left foot Assessment and Plan *Assessment and plan (1) Cellulitis of left leg: Status: Acute Category: Medical Code(s): L03.116 - Cellulitis of left lower limb (2) Osteomyelitis: Status: Acute Qualifiers: Osteomyelitis type: subacute Osteomyelitis location: foot Laterality: left Qualified Code(s): M86.272 - Subacute osteomyelitis, left ankle and foot Category: Medical Code(s): M86.9 - Osteomyelitis, unspecified (3) Left buttock abscess: Problem Comment: Left medial buttock/ischiorectal abscess Status: Acute Category: Medical Code(s): L02.31 - Cutaneous abscess of buttock (4) Chronic wound: Status: Acute Category: Medical Code(s): T14.8XXA - Other injury of unspecified body region, initial encounter (5) PAD (peripheral artery disease): Status: Acute Category: Medical Code(s): I73.9 - Peripheral vascular disease, unspecified (6) Diabetes: Status: Acute Qualifiers: Diabetes mellitus type: type 2 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 insulin 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: with alf use Diabetes mellitus complication status: with circulatory complication Diabetes mellitus complication detail: with peripheral angiopathy without gangrene Qualified Code(s): E11.51 - Type 2 diabetes mellitus with diabetic peripheral angiopathy without gangrene; Z79.4 - prison (current) use of insulin Category: Medical Code(s): E11.9 - Type 2 diabetes mellitus without complications (7) Functional paraparesis: Status: Acute Category: Medical Code(s): F44.4 - Conversion disorder with motor symptom or deficit (8) Diabetic foot infection: Status: Acute Category: Medical Code(s): E11.628 - Type 2 diabetes mellitus with other skin complications; L08.9 - Local infection of the skin and subcutaneous tissue, unspecified (9) Seizure disorder: Status: Chronic Category: Medical Code(s): G40.909 - Epilepsy, unspecified, not intractable, without status epilepticus (10) HTN (hypertension): Status: Chronic Qualifiers: Hypertension type: primary hypertension Qualified Code(s): I10 - Essential (primary) hypertension Category: Medical Code(s): I10 - Essential (primary) hypertension (11) Self-care deficit: Status: Acute Category: Medical Code(s): Z78.9 - Other specified health status (12) Obesity (BMI 30-39.9): Status: Chronic Category: Medical Code(s): E66.9 - Obesity, unspecified (13) Lumbar spinal stenosis: Status: Acute Qualifiers: Neurogenic claudication status: unspecified Qualified Code(s): M48.061 - Spinal stenosis, lumbar region without neurogenic claudication Category: Medical Code(s): M48.061 - Spinal stenosis, lumbar region without neurogenic claudication Plan 69 year old male presented to the ED for c/o LLE redness. Admitted to this tube amputation of 3 toes. Admitted last month to [facility] for revision of wound and concern for infection. Podiatry consulted and assisting with care. Concern for worsening infection and foot. Necessitating revisional surgery today. Also found to have abscess in left gluteus. Surgery consulted. Continues to require inpatient management. Will likely need prolonged antibiotics at discharge. Continues to require inpatient management. Problems addressed as follows: CELLULITIS Diabetic foot infection Metatarsal osteomyelitis -Per my review of CT, concern for erosion of distal third and fourth metatarsal. Also positive for cellulitis. Incidental finding of abscess in left gluteus, patient reports pain at this time. -White cell count normal at 4.3. Inflammatory markers elevated. Continue antibiotics with meropenem and vancomycin IV. - Blood cultures obtained and pending. -- Discussed case with podiatry, planning for wound washout and possible transmetatarsal amputation this afternoon. Discussed case with surgery, consulted to assist with abscess of gluteus. Will coordinate surgery with podiatry to perform I&D. -I have ordered CBC, CMP, magnesium for the morning. DM -SSI insulin, FSGS ACHS -Glucose this morning 101 -A1c 6.3 last admission, well-controlled. continue long-acting insulin glargine at decreased dose of 30 units nightly. SEIZURE DISORDER PVD HTN HLD -Continue home medications aspirin 81 mg, Plavix 75 mg daily, atorvastatin 40 mg, finasteride 5mg, lamotrigine 150 mg. Continue metoprolol 25 mg daily, will hold losartan -Recent stenting of left lower extremity, awaiting records from [facility] to review BPH Incontinence - continue finasteride and tamsulosin 0.8mg QHS - indwelling catheter due to breakdown on sacrum and incontinence OBESITY -complicates all aspects of care FULL CODE NPO pending surgery, DIABETIC DIET therafter PLOV
--- NOTE | 2024-03-28 15:55 | EXP.SURG.CON ---
History of Present Illness *Admission Date: 03/27/24 *Reason for visit:: Left medial buttock abscess *History of present illness: This is a 70-year-old gentleman seen in consultation from the primary service regarding a newly-diagnosed left medial buttock abscess. A CT scan ordered by the podiatry service was completed yesterday. In addition to multiple other findings a 3.9 cm enhancing fluid collection in the left medial gluteal fold was noted. The patient does describe pain/discomfort in this area. Please see HPI forwarded from admission H&P below. This is a 69-year-old male with PMHx of multiple comorbidities including hypertension, hyperlipidemia, recurrent cellulitis of bilateral lower extremities, chronic nonhealing wounds of the bilateral lower extremities, peripheral artery disease s/p right AKA, and multiple nonhealing wounds of the left lower extremity s/p recent 3rd and 4th toes amputation, and discharged home with Home health services who presented emergency department for evaluation of his left foot wound. Recommendation is to undergo amputation given that his prognosis of his left foot is poor however he has refused previously. He is wound care twice a week that sees him and change his dressings. They noticed some drainage from his stitches and caused him to return here for continued evaluation. He has some redness of his lower extremity which is unclear if it is worse than baseline. He otherwise has no other acute complaints. 03/28/24: Podiatry consult Patient resting in bed, discussed holding off on eating breakfast until after getting CT angiogram L Lower extremity and EBENEZER's completed to determine if he will need any surgical procedures done today. Patient states having some pain in his left lower leg and foot from the cellulitis. [facility] Disclaimer: The information contained in this section may have been updated after the patient was seen, as this information can be updated by other users. Medical History Seizure CAD in [place] artery Acute febrile illness Atrial flutter Bilateral cellulitis of lower leg Cellulitis Diabetes mellitus Dystrophia unguium Fatigue Fever Infestation by fly larvae Lymphedema of both lower extremities Malaise Obesity with body mass index (BMI) of 30.0 to 39.9 Peripheral vascular disease Renal insufficiency Spinal stenosis of cervical region Spinal stenosis of lumbar region Systemic inflammatory response syndrome (SIRS) Ulcers of both lower extremities Uncontrolled diabetes mellitus History of left heart catheterization (LHC) Surgical History H/O Spinal surgery Family History Mother Breast cancer Family history of myocardial infarction Social History (Updated 03/27/24 @ 22:53 by Jailyn Meyers RN) Smoking Status: Never smoker alcohol intake: never substance use type: marijuana current occupational status: retired and disabled Travel in the last 8 weeks: None household members: family caffeine: No Meds Home Medications and Allergies Home Medications Medication Instructions Recorded Confirmed Type aspirin 81 mg tablet,delayed 81 mg PO DAILY 04/20/23 03/27/24 History release buspirone 5 mg tablet 5 mg PO TID 04/20/23 03/27/24 History docusate sodium 250 mg capsule 250 mg PO BID 04/20/23 03/27/24 History finasteride 5 mg tablet 5 mg PO DAILY PROSTATE 04/20/23 03/27/24 History furosemide 40 mg tablet 40 mg PO DAILY Fluid 04/20/23 03/27/24 History lamotrigine 100 mg tablet 100 mg PO BID 04/20/23 03/27/24 History losartan 50 mg tablet 50 mg PO DAILY 04/20/23 03/27/24 History lamotrigine 150 mg tablet 150 mg PO HS Seizures 04/21/23 03/27/24 History insulin glargine 100 unit/mL (3 42 unit SQ HS 06/04/23 03/27/24 History mL) subcutaneous pen (Lantus Solostar U-100 Insulin) tamsulosin 0.4 mg capsule 0.8 mg PO HS 06/04/23 03/27/24 History clopidogrel 75 mg tablet (Plavix) 75 mg PO DAILY #30 tabs 06/08/23 03/28/24 Rx metoprolol succinate 25 mg 25 mg PO DAILY #30 tabs 06/08/23 03/28/24 Rx tablet,extended release 24 hr atorvastatin 40 mg tablet 40 mg PO DAILY 03/03/24 03/27/24 History baclofen 10 mg tablet 10 mg PO BIDP PRN Muscle Spasm 03/03/24 03/28/24 History ferrous sulfate 325 mg (65 mg 325 mg PO DAILY 03/03/24 03/27/24 History iron) tablet pantoprazole 40 mg tablet,delayed 40 mg PO DAILY 03/03/24 03/27/24 History release metoclopramide HCl 5 mg tablet 5 mg PO BID 03/27/24 03/27/24 History New Prescriptions to Start Prescriptions: Allergies Allergy/AdvReac Type Severity Reaction Status Date / Time hydrocodone [From LORTAB] Allergy Unknown NA-NAUSEA/V Verified 06/04/23 16:47 OMITING levetiracetam [From Keppra] Allergy Verified 03/03/24 23:56 tramadol AdvReac Unknown Verified 06/04/23 16:47 allergy reaction Exam (Inpt) Vital signs and Labs for Last 24 Hours: Temp Pulse Resp BP Pulse Ox O2 Del Method 97.7 F 96 H 20 112/64 97 Room Air 03/28/24 08:00 03/28/24 08:00 03/28/24 08:00 03/28/24 08:00 03/28/24 08:00 03/28/24 14:49 Laboratory Results - last 24 hr 03/27/24 17:20: Sodium 140, Potassium 4.3, Chloride 109 H, Carbon Dioxide 20 L, Anion Gap 15.3 H, BUN 21 H, Creatinine 0.70, Estimated Creat Clear 115, Estimated GFR 111, Est GFR ( Amer) 135, Glucose 110 H, Calcium 8.7, Total Bilirubin 0.5, AST 33, ALT 26, Alkaline Phosphatase 89, C-Reactive Protein 36.1 H, Total Protein 6.8, Albumin 3.7, Globulin 3.1, Albumin/Globulin Ratio 1.2 03/27/24 19:37: WBC 6.8, RBC 3.11 L, Hgb 8.5 L, Hct 25.7 L, MCV 82.7, MCH 27.2, MCHC 33.0, RDW 17.8 H, Plt Count 115 L, MPV 9.7, Neut % (Auto) 67.7, Lymph % (Auto) 23.9, [place] % (Auto) 5.8, Eos % (Auto) 2.2, Baso % (Auto) 0.3, Neut # (Auto) 4.6, Lymph # (Auto) 1.6, [place] # (Auto) 0.4, Eos # (Auto) 0.2, Baso # (Auto) 0.0, ESR 124 H 03/28/24 06:12: WBC 4.3 L D, RBC 2.96 L, Hgb 8.3 L, Hct 25.1 L, MCV 84.8, MCH 28.0, MCHC 33.0, RDW 17.7 H, Plt Count 94 L, MPV 9.5, Neut % (Auto) 59.3, Lymph % (Auto) 28.3, [place] % (Auto) 7.8, Eos % (Auto) 4.0, Baso % (Auto) 0.6, Neut # (Auto) 2.5, Lymph # (Auto) 1.2, [place] # (Auto) 0.3, Eos # (Auto) 0.2, Baso # (Auto) 0.0, Sodium 139, Potassium 3.5, Chloride 110 H, Carbon Dioxide 26, Anion Gap 6.5, BUN 20, Creatinine 0.70, Estimated Creat Clear 112, Estimated GFR 111, Est GFR ( Amer) 135, Glucose 101 H, Calcium 8.0 L, Magnesium 1.6, Total Bilirubin 0.2, AST 21 D, ALT 20, Alkaline Phosphatase 89, Total Protein 5.8 L, Albumin 2.9 L D, Globulin 2.9, Albumin/Globulin Ratio 1.0 L 03/28/24 06:34: POC Glucose 100 03/28/24 11:02: POC Glucose 116 H I & O for Labs for Last 24 Hours: Intake & Output 03/26/24 03/27/24 03/28/24 03/29/24 11:59 11:59 11:59 11:59 Weight 255 lb 1.197 oz Microbiology Reports for the Last 24 Hours: Microbiology 03/28/24 07:30 Foot,Left - Drainage Gram Stain - Final Constitutional: no acute distress Respiratory: Absent respiratory distress Cardiac: Absent Tachycardia Comment:: Left medial buttock/ischiorectal swelling, mild erythematous blush, and central fluctuance. Results Labs 03/28/24 06:12 03/28/24 06:12 Labs: Laboratory Results - last 24 hr 03/27/24 17:20: Sodium 140, Potassium 4.3, Chloride 109 H, Carbon Dioxide 20 L, Anion Gap 15.3 H, BUN 21 H, Creatinine 0.70, Estimated Creat Clear 115, Estimated GFR 111, Est GFR ( Amer) 135, Glucose 110 H, Calcium 8.7, Total Bilirubin 0.5, AST 33, ALT 26, Alkaline Phosphatase 89, C-Reactive Protein 36.1 H, Total Protein 6.8, Albumin 3.7, Globulin 3.1, Albumin/Globulin Ratio 1.2 03/27/24 19:37: WBC 6.8, RBC 3.11 L, Hgb 8.5 L, Hct 25.7 L, MCV 82.7, MCH 27.2, MCHC 33.0, RDW 17.8 H, Plt Count 115 L, MPV 9.7, Neut % (Auto) 67.7, Lymph % (Auto) 23.9, [place] % (Auto) 5.8, Eos % (Auto) 2.2, Baso % (Auto) 0.3, Neut # (Auto) 4.6, Lymph # (Auto) 1.6, [place] # (Auto) 0.4, Eos # (Auto) 0.2, Baso # (Auto) 0.0, ESR 124 H 03/28/24 06:12: WBC 4.3 L D, RBC 2.96 L, Hgb 8.3 L, Hct 25.1 L, MCV 84.8, MCH 28.0, MCHC 33.0, RDW 17.7 H, Plt Count 94 L, MPV 9.5, Neut % (Auto) 59.3, Lymph % (Auto) 28.3, [place] % (Auto) 7.8, Eos % (Auto) 4.0, Baso % (Auto) 0.6, Neut # (Auto) 2.5, Lymph # (Auto) 1.2, [place] # (Auto) 0.3, Eos # (Auto) 0.2, Baso # (Auto) 0.0, Sodium 139, Potassium 3.5, Chloride 110 H, Carbon Dioxide 26, Anion Gap 6.5, BUN 20, Creatinine 0.70, Estimated Creat Clear 112, Estimated GFR 111, Est GFR ( Amer) 135, Glucose 101 H, Calcium 8.0 L, Magnesium 1.6, Total Bilirubin 0.2, AST 21 D, ALT 20, Alkaline Phosphatase 89, Total Protein 5.8 L, Albumin 2.9 L D, Globulin 2.9, Albumin/Globulin Ratio 1.0 L 03/28/24 06:34: POC Glucose 100 03/28/24 11:02: POC Glucose 116 H Assessment and Plan *Assessment and plan (1) Left buttock abscess: Problem Comment: Left medial buttock/ischiorectal abscess Status: Acute Category: Medical Code(s): L02.31 - Cutaneous abscess of buttock Plan: Plan incision and drainage of left medial buttock abscess at time of podiatric intervention later today. I have discussed the risks and benefits including, but not limited to: Bleeding Infection Damage to surrounding tissue Inherent risks of sedation The patient agrees to proceed.
[2024-03-28 16:48] LABS: POC Glucose,Bedside 92 (70-110)
--- NOTE | 2024-03-28 17:06 | PC.NURSE ---
PT TO SURGERY VIA BED WITH SURGERY STAFF.
--- NOTE | 2024-03-28 17:19 | EXP.ANES.CKL ---
[facility] Disclaimer: The information contained in this section may have been updated after the patient was seen, as this information can be updated by other users. Medical History Seizure CAD in [place] artery Acute febrile illness Atrial flutter Bilateral cellulitis of lower leg Cellulitis Diabetes mellitus Dystrophia unguium Fatigue Fever Infestation by fly larvae Lymphedema of both lower extremities Malaise Obesity with body mass index (BMI) of 30.0 to 39.9 Peripheral vascular disease Renal insufficiency Spinal stenosis of cervical region Spinal stenosis of lumbar region Systemic inflammatory response syndrome (SIRS) Ulcers of both lower extremities Uncontrolled diabetes mellitus History of left heart catheterization (LHC) Surgical History H/O Spinal surgery Family History Mother Breast cancer Family history of myocardial infarction Social History (Updated 03/27/24 @ 22:53 by Jailyn Meyers RN) Smoking Status: Never smoker alcohol intake: never substance use type: marijuana current occupational status: retired and disabled Travel in the last 8 weeks: None household members: family caffeine: No [facility] Anesthesia Checklist Patient Identification Patient Identification: Arm Band and Verbal (Name & ) Structural Data Admitted From: Inpatient Planned Operative Procedure/s: 209-1 Consent for Planned Operative Procedure(s) Verified: Yes Verified Documents: Surgical Consent and History and Physical NPO Status Verified Time NPO: 07:00 Chart Verification Results Verified: CBC, BMP, ECG and Chest Xray Additional verifications Fingerstick Blood Glucose: 92 Patient : No Anesthesia Reactions: No Cardiovascular Assessment Heart Sounds: S1 & S2 Pulse Rhythm: Irregular Peripheral Edema: Yes Airway Assessment Mallampati Score:: Class II C-Spine Mobility Assessed: Yes (FROM) TMJ Mobility Assessed: Yes Dentition: Edentulous Neurological Assessment Level of Consciousness: Awake, Alert, Appropriate and Follows Commands Hx Seizures: Yes (Last one @ in January 2024) Numbness or tingling in extremities: Yes (CASIMIRO LE) Anesthesia Plan Anesthesia Risk discussed: Yes Anesthesia Plan: Verified ASA Class: III (E) Anesthesia Type: General w/block
--- NOTE | 2024-03-28 17:54 | EXP.OP.NOTE ---
Date of procedure: 03/28/24 Pre-op Diagnosis:: Left medial buttock/ischiorectal/perianal abscess Post-op Diagnosis:: Same Procedure performed:: Incision and drainage of left medial buttock/ischiorectal/perianal abscess Surgeon:: Juni Bowen MD SUPER[employer]OR [employer]:: Sherri Cobb Anesthesia: LMA Estimated blood loss (mL): 5 Operative findings:: Focal pocket of purulence in the the left perianal/medial buttock/ischiorectal space Operative note:: After informed consent was obtained the patient was taken to the operating room and placed in the supine position. General anesthesia with laryngeal mask airway was achieved. He was transferred to a modified left lateral decubitus position. The left medial buttock/perianal region was prepped and draped in a sterile fashion. Electrocautery was utilized to incise an ellipse overlying the central portion of fluctuance. Purulent fluid was evacuated. The cavity was packed with Kerlix and the region was infiltrated with 1% lidocaine. Dressings were applied and the patient was transferred to a supine position for completion of his planned podiatric intervention. Condition: stable Disposition: no change Specimens:: None Complications:: No immediate
[2024-03-28] MEDS: LIDOCAINE 1% 20ML MDV 20 ML (17:56)
--- NOTE | 2024-03-28 17:57 | PC.NURSE ---
pt overall had a good day. pt is currently in surgery for surgical debridement of lt foot and I&D of lt buttocks wound. pt has had no other complaints today. no new orders at this time. pt remained on room air this shift.
[2024-03-28] MEDS: GENTAMICIN 80 MG/2 ML VIAL (18:18)
[2024-03-28] MEDS: VANCOMYCIN 1000MG VIAL 1000 MG (18:18)
--- NOTE | 2024-03-28 19:31 | P.PNANES_ITS ---
[facility] Anesthesia Record Part I Anesthesia Record I Intake, IV Amount: 500 Hydration: Adequate Estimated blood loss (mL): 50 Urine output (mL): 350 Blood Products used (#): none Blood Pressure: 120/66 SaO2: 92 Pulse Rate: 84 Airway Patency: Patent Respiratory Rate: 20 Temperature: 97.3 F Patient is:: Awake (Talking) and Stable Stable to PACU at:: 19:30
--- NOTE | 2024-03-28 19:31 | EXP.OP.NOTE ---
Date of procedure: 03/28/24 Pre-op Diagnosis:: Left leg cellulitis Left foot osteomyelitis Post-op Diagnosis:: Same Procedure performed:: Left foot transmetatarsal amputation Left foot irrigation and wide excisional debridement Surgeon:: Sherri Faust DPM CURATOR [employer]:: Sherri Cobb Anesthesia: GETMigdalia Estimated blood loss (mL): 30 Clinical Note:: Surgery, 03/06/24: s/p Left 2nd partial metatarsal amputation, revision of prior amp site/wound dehiscence with derotational skin flap, Left heel wound debridement, Left leg wound debridement x 2, Flash antibiotic beads Specimens from 03/06/24: Left foot WCx: Staphylococcus aureus: Gram Positive ID/AST. B-Lactamase Positive. Methicillin Resistant Staphylococcus. Left foot tissue culture: Pseudomonas aeruginosa Left 2nd met bone culture: NGF Left second metatarsal proximal margin: Reactive bone. Negative for acute inflammation. Recommend IV Vanco and Meropenem (based on prior cultures: MRSA and Pseudomonas). General surgery, Dr. Bowen prescription case prior to myself to perform a gluteal I&D. Once he was done, patient was repositioned and the left lower extremity procedure was performed. Operative findings:: Left foot had sutures intact from prior revisional amputation surgery. Patient had antibiotic beads noted over the second metatarsal head resection site. Some maceration and dusky discoloration along the dorsal incision. The transmetatarsal amputation was performed just proximal to the prior resected second metatarsal. The hallux distally was soft but no obvious signs of osteomyelitis noted. The third and fourth metatarsal heads had cortical erosion with mild purulent drainage noted around the metatarsal phalangeal joints. Fifth metatarsal was intact with mild cortical erosions noted. No deep sinus tracking noted at the foot. Some bleeding noted to the foot. Minimal cautery utilized. Operative note:: On this date and time patient was deemed an appropriate surgical candidate. With informed consent signed, the patient was taken to the operating theater. The patient was positioned supine. General anesthesia was induced. No tourniquet used. The left lower extremity was prepped and draped in normal sterile fashion. Left wide excisional irrigation and debridement: Attention was directed to the 2-3rd toes where prior toe amputation and surgical wounds were noted with sutures intact. Previous partial 2nd metatarsal amp site noted with antibiotic beads intact. Mild cellulitis noted extending to the 3rd MPJ. A fish mouth incision was mapped out at the level of the MPJs. Utilizing a 15 blade dissection was carried down sharply to the level of the bone around the proximal phalanx bases, which were disarticulated from the metatarsals. A wide excisional deep debridement was performed removing all hematoma from the prior surgery site and all nonviable soft tissue and bone. The macerated dusky skin dorsally was resected completely. Left transmetatarsal amputation: The proximal phalanx bone of 1, 3-5th toes were removed and sent as gross path. Attention was then directed to the metatarsals. Utilizing power resection the metatarsal heads 1-2, 3-5 were transected. A piece of the 1-2nd mets and 3-5th metatarsals were sent as bone culture. A piece of the 2nd metatarsal and 3rd metatarsal were sent separately to pathology for a clean proximal margin. The remaining metatarsals looked within normal limits, bone hard, no obvious signs of osteomyelitis noted. Next 3 L of gentamicin irrigation was used to flush the wound and pulse lavage. The wound was reexplored and no further signs of infection noted. At this point the double-ended rasp was used to smooth down the edges of the bone so that there were no sharp prominences. Bleeding controlled. Vancomycin powder was inserted over the metatarsals. 2-0 Vicryl was used to reapproximate the subcutaneous tissue. 2-0 nylon was used to close skin in a mattress suture fashion. Vancomycin powder sprinkled over the incisions. A 7 flat TOÑO drain was inserted dorsal medially. Suture guard-Keyshawn guard x2 were used to reinforce the skin closure at the apex where the highest tension was to prevent wound dehiscence. The wounds were cleansed. Betadine soaked gauze and dry sterile dressing was then applied to the left foot. The patient was awoken from anesthesia and transferred to recovery with vital signs stable and neurovascular status intact. Patient appeared to tolerate procedure and anesthesia well without complication Materials: Nylon, 7 flat TOÑO drain, Suture guard (Keyshawn-guard) x2, Vanco powder Discharge/Plan: Transfer back to floor. Patient is to maintain dressing clean dry and intact. Float/off load left heel on pillow. Continue IV antibiotics: recommend IV Vanco and Meropenem (based on prior cultures-see above). NWB to LLE with wheelchair. Obtain post op films, left foot, 3 views. Podiatry will follow-up in am for dressing change. Condition: stable Disposition: floor Specimens:: Cultures: Left 1-2nd metatarsals Left 3-5th metatarsals Path: Left distal foot/toes Left 2nd metatarsal Left 3rd metatarsal bone proximal margin Complications:: None
--- NOTE | 2024-03-28 19:52 | XR_ITS ---
PROCEDURE INFORMATION: Exam: XR Left Foot Exam date and time: 03/28/2024 8:10 PM Age: 69 years old Clinical indication: Pain; Other: S/P left tma TECHNIQUE: Imaging protocol: Radiologic exam of the left foot. Views: 3 or more views. COMPARISON: CR XR FOOT LT MIN 3V 03/27/2024 6:50 PM FINDINGS: Bones/joints: Postsurgical changes compatible with amputation of the 1st through 5th metatarsal heads with soft tissue drain in place, and moderate soft tissue swelling. Soft tissues: See Bones/joints finding. IMPRESSION: Postsurgical changes compatible with amputation of the 1st through 5th metatarsal heads with soft tissue drain in place, and moderate soft tissue swelling.
--- NOTE | 2024-03-28 20:02 | PC.NURSE ---
pt arrived to floor from pacu at this time
[2024-03-28 20:04] LABS: POC Glucose,Bedside 121 (70-110)
[2024-03-28 20:35] LABS: Microscopic,Cath URINE MICROSCOPIC (MICROSCOPIC)
[2024-03-28 20:43] LABS: Appearance,Urine/Cath CLEAR (Clear); Bilirubin,Cath Negative (Negative); Blood, Urine/Cath Negative (Negative); Color,Urine/Cath YELLOW (Yellow); Glucose,Urine/Cath (UA) Negative (Negative); Ketones,Urine/Cath Negative (Negative); Leukocyte Esterase,Cath Negative (Negative); Nitrate,Cath Negative (Negative); Protein,Urine/Cath Negative (Negative); Urobilinogen,Cath 0.2 EU/dl (0.2)
[2024-03-28 21:04] LABS: Squamous Epithelial Ur./Cath Occasional #/hpf (0-5); WBC,Urine/Cath Occasional #/hpf (0-3)
[2024-03-28] MEDS: DOCUSATE SODIUM 250MG CAPSULE 250 MG PO (21:45)
[2024-03-28] MEDS: LAMOTRIGINE 150 MG 150 EACH PO (21:46)
[2024-03-28] MEDS: lamoTRIgine 100MG TABLET 100 MG PO (21:46)
[2024-03-28] MEDS: TAMSULOSIN 0.4MG CAPSULE 0.8 MG PO (21:48)
[2024-03-28] MEDS: BUSPIRONE HCL 5 MG TABLET PO (21:55)
[2024-03-28] MEDS: INSULIN GLARGINE 100 UNITS/ML 3ML FLEXPEN 30 UNIT SQ (21:56)
[2024-03-28] MEDS: METOCLOPRAMIDE 5MG TABLET 5 MG PO (21:57)
[2024-03-29] VITALS (9 sets, daily range): BP systolic 100–149; BP diastolic 51–93; PULSE 76–99; RESP 16–20; TEMP 36.3–36.8; O2SAT 92–98; BMI 36.8
[2024-03-29] MEDS: MORPHINE 4MG/ML SYRINGE 4 MG IV (02:02)
[2024-03-29] MEDS: VANCOMYCIN HCL 2,250 MG in 0.9 % SODIUM CHLORIDE 250 ML 125 MG IV (03:03)
[2024-03-29] MEDS: OXYCODONE 5MG IMMEDIATE RELEASE TABLET 5 MG PO ×5 (04:35→23:31)
--- NOTE | 2024-03-29 05:28 | PC.NURSE ---
Pt vital signs have been stable throughout shift. Pt has complained of pain in left foot at incision site. He was treated per NOV. Dressings over left bottom and left foot are clean, dry and intact. Pt has no other complaints at this time. Call light within reach.
[2024-03-29 06:03] LABS: POC Glucose,Bedside 90 (70-110)
[2024-03-29 06:20] LABS: Basophils % 0.2 % (0.1-2.0); Eosinophils % 0.6 % (0.1-12.0); Hemoglobin 7.9 g/dL (14.1-18.0); Lymphocytes # 1.1 K/mm3 (0.7-4.5); Lymphocytes % 23.4 % (10-50); Mean Corpuscular HGB Conc 32.8 g/dL (31.8-35.4); Mean Corpuscular Hemoglobin 27.8 pg (27.0-31.2); Mean Corpuscular Volume 84.8 fl (80-94); Mean Platelet Volume 9.1 fl (7.4-10.4); Monocytes # 0.4 K/mm3 (0.1-1.0); Neutrophils # 3.2 K/mm3 (1.8-7.8); Neutrophils % 67.7 % (37.0-80.0); Platelet Count 90 K/mm3 (142-424); Red Blood Count 2.83 M/mm3 (4.60-6.20); Red Cell Distribution Width 17.7 % (11.5-17.5); White Blood Count 4.7 K/mm3 (4.8-10.8)
[2024-03-29 06:29] LABS: Alanine Aminotransferase 23 U/L (12-78); Albumin Level 2.8 g/dl (3.5-5.0); Alkaline Phosphatase 83 U/L (38-126); Anion Gap 8.7 mEq/L (5-15); Aspartate Amino Transferase 27 U/L (17-59); Bilirubin,Total 0.3 mg/dl (0.2-1.3); Blood Urea Nitrogen 15 mg/dl (9-20); Calcium 8.2 mg/dl (8.4-10.2); Carbon Dioxide 22 mmol/L (22.0-30.0); Chloride 111 mmol/L (98-107); Creatinine Clearance Estimated 120 mL/min (50-200); Estimated Glomerular Filt Rate 111 ml/min (>60); GFR (African American) 135 ML/MIN (>60); Globulin 2.8 g/dL (1.3-3.2); Glucose 79 mg/dl (74-100); Magnesium 1.6 mg/dl (1.6-2.3); Potassium 3.7 mmoL/L (3.5-5.1); Sodium 138 mmol/L (136-145); Total Protein,Serum 5.6 g/dl (6.3-8.2)
[2024-03-29 06:35] LABS: C-Reactive Protein 38.7 mg/L (0-4)
[2024-03-29] MEDS: MEROPENEM 1 GM in 0.9 % SODIUM CHLORIDE 100 ML IV ×3 (06:39→23:05)
--- NOTE | 2024-03-29 06:43 | P.CONS_ITS ---
History of Present Illness *Admission Date: 03/27/24 *History of present illness: This is a 70-year-old gentleman seen in consultation from the primary service regarding a newly-diagnosed left medial buttock abscess. A CT scan ordered by the podiatry service was completed yesterday. In addition to multiple other findings a 3.9 cm enhancing fluid collection in the left medial gluteal fold was noted. The patient does describe pain/discomfort in this area. Please see HPI forwarded from admission H&P below. This is a 69-year-old male with PMHx of multiple comorbidities including hypertension, hyperlipidemia, recurrent cellulitis of bilateral lower extremities, chronic nonhealing wounds of the bilateral lower extremities, peripheral artery disease s/p right AKA, and multiple nonhealing wounds of the left lower extremity s/p recent 3rd and 4th toes amputation, and discharged home with Home health services who presented emergency department for evaluation of his left foot wound. Recommendation is to undergo amputation given that his prognosis of his left foot is poor however he has refused previously. He is wound care twice a week that sees him and change his dressings. They noticed some drainage from his stitches and caused him to return here for continued evaluation. He has some redness of his lower extremity which is unclear if it is worse than baseline. He otherwise has no other acute complaints. 03/29/24: Podiatry consult Patient resting in bed, eating breakfast. S/P TMA, patient stated he had some throbbing pain last night, the Nurse brought him IV pain medication that seemed to help and he was able to get some rest. [facility] Disclaimer: The information contained in this section may have been updated after the patient was seen, as this information can be updated by other users. Medical History Seizure CAD in [place] artery Acute febrile illness Atrial flutter Bilateral cellulitis of lower leg Cellulitis Diabetes mellitus Dystrophia unguium Fatigue Fever Infestation by fly larvae Lymphedema of both lower extremities Malaise Obesity with body mass index (BMI) of 30.0 to 39.9 Peripheral vascular disease Renal insufficiency Spinal stenosis of cervical region Spinal stenosis of lumbar region Systemic inflammatory response syndrome (SIRS) Ulcers of both lower extremities Uncontrolled diabetes mellitus History of left heart catheterization (LHC) Surgical History H/O Spinal surgery Family History Mother Breast cancer Family history of myocardial infarction Social History (Updated 03/27/24 @ 22:53 by Jailyn Meyers RN) Smoking Status: Never smoker alcohol intake: never substance use type: marijuana current occupational status: retired and disabled Travel in the last 8 weeks: None household members: family caffeine: No Meds Home Medications and Allergies Home Medications Medication Instructions Recorded Confirmed Type aspirin 81 mg tablet,delayed 81 mg PO DAILY 04/20/23 03/27/24 History release buspirone 5 mg tablet 5 mg PO TID 04/20/23 03/27/24 History docusate sodium 250 mg capsule 250 mg PO BID 04/20/23 03/27/24 History finasteride 5 mg tablet 5 mg PO DAILY PROSTATE 04/20/23 03/27/24 History furosemide 40 mg tablet 40 mg PO DAILY Fluid 04/20/23 03/27/24 History lamotrigine 100 mg tablet 100 mg PO BID 04/20/23 03/27/24 History losartan 50 mg tablet 50 mg PO DAILY 04/20/23 03/27/24 History lamotrigine 150 mg tablet 150 mg PO HS Seizures 04/21/23 03/27/24 History insulin glargine 100 unit/mL (3 42 unit SQ HS 06/04/23 03/27/24 History mL) subcutaneous pen (Lantus Solostar U-100 Insulin) tamsulosin 0.4 mg capsule 0.8 mg PO HS 06/04/23 03/27/24 History clopidogrel 75 mg tablet (Plavix) 75 mg PO DAILY #30 tabs 06/08/23 03/28/24 Rx metoprolol succinate 25 mg 25 mg PO DAILY #30 tabs 06/08/23 03/28/24 Rx tablet,extended release 24 hr atorvastatin 40 mg tablet 40 mg PO DAILY 03/03/24 03/27/24 History baclofen 10 mg tablet 10 mg PO BIDP PRN Muscle Spasm 03/03/24 03/28/24 History ferrous sulfate 325 mg (65 mg 325 mg PO DAILY 03/03/24 03/27/24 History iron) tablet pantoprazole 40 mg tablet,delayed 40 mg PO DAILY 03/03/24 03/27/24 History release metoclopramide HCl 5 mg tablet 5 mg PO BID 03/27/24 03/27/24 History New Prescriptions to Start Prescriptions: Allergies Allergy/AdvReac Type Severity Reaction Status Date / Time hydrocodone [From LORTAB] Allergy Unknown NA-NAUSEA/V Verified 06/04/23 16:47 OMITING levetiracetam [From Keppra] Allergy Verified 03/03/24 23:56 tramadol AdvReac Unknown Verified 06/04/23 16:47 allergy reaction Exam (Inpt) Vital signs and Labs for Last 24 Hours: Temp Pulse Resp BP Pulse Ox O2 Del Method 98.1 F 88 16 149/69 H 98 Room Air 03/29/24 04:00 03/29/24 04:00 03/29/24 04:00 03/29/24 04:00 03/29/24 04:00 03/29/24 05:00 Laboratory Results - last 24 hr 03/28/24 06:12: WBC 4.3 L D, RBC 2.96 L, Hgb 8.3 L, Hct 25.1 L, MCV 84.8, MCH 28.0, MCHC 33.0, RDW 17.7 H, Plt Count 94 L, MPV 9.5, Neut % (Auto) 59.3, Lymph % (Auto) 28.3, [place] % (Auto) 7.8, Eos % (Auto) 4.0, Baso % (Auto) 0.6, Neut # (Auto) 2.5, Lymph # (Auto) 1.2, [place] # (Auto) 0.3, Eos # (Auto) 0.2, Baso # (Auto) 0.0, Sodium 139, Potassium 3.5, Chloride 110 H, Carbon Dioxide 26, Anion Gap 6.5, BUN 20, Creatinine 0.70, Estimated Creat Clear 112, Estimated GFR 111, Est GFR ( Amer) 135, Glucose 101 H, Calcium 8.0 L, Magnesium 1.6, Total Bilirubin 0.2, AST 21 D, ALT 20, Alkaline Phosphatase 89, Total Protein 5.8 L, Albumin 2.9 L D, Globulin 2.9, Albumin/Globulin Ratio 1.0 L 03/28/24 11:02: POC Glucose 116 H 03/28/24 16:38: POC Glucose 92 03/28/24 18:01: Urine Color Yellow, Urine Appearance Clear, Urine pH 6.0, Ur Specific [place] 1.010, Urine Protein Negative, Urine Glucose (UA) Negative, Urine Ketones Negative, Urine Blood Negative, Urine Nitrate Negative, Urine Bilirubin Negative, Urine Urobilinogen 0.2, Ur Leukocyte Esterase Negative, Urine RBC None, Urine WBC Occasional, Ur Squamous Epith Cells Occasional, Urine Bacteria None 03/28/24 19:57: POC Glucose 121 H 03/29/24 05:42: POC Glucose 90 03/29/24 06:04: WBC 4.7 L, RBC 2.83 L, Hgb 7.9 L, Hct 24.0 L, MCV 84.8, MCH 27.8, MCHC 32.8, RDW 17.7 H, Plt Count 90 L, MPV 9.1, Neut % (Auto) 67.7, Lymph % (Auto) 23.4, [place] % (Auto) 8.0, Eos % (Auto) 0.6, Baso % (Auto) 0.2, Neut # (Auto) 3.2, Lymph # (Auto) 1.1, [place] # (Auto) 0.4, Eos # (Auto) 0.0, Baso # (Auto) 0.0, Sodium 138, Potassium 3.7, Chloride 111 H, Carbon Dioxide 22, Anion Gap 8.7, BUN 15, Creatinine 0.70, Estimated Creat Clear 120, Estimated GFR 111, Est GFR ( Amer) 135, Glucose 79 D, Calcium 8.2 L, Magnesium 1.6, Total Bilirubin 0.3, AST 27 D, ALT 23, Alkaline Phosphatase 83, C-Reactive Protein 38.7 H, Total Protein 5.6 L, Albumin 2.8 L, Globulin 2.8, Albumin/Globulin Ratio 1.0 L I & O for Labs for Last 24 Hours: Intake & Output 03/26/24 03/27/24 03/28/24 03/29/24 23:59 23:59 23:59 23:59 Intake Total 996 / 996 1480 / 1480 Output Total 1300 / 1300 Balance 996 / 996 180 / 180 Weight 255 lb 6.4 oz 255 lb 1.197 oz 272 lb 6.4 oz Microbiology Reports for the Last 24 Hours: Microbiology 03/27/24 17:20 Blood Blood Culture - Preliminary NO GROWTH AFTER 24 HOURS 03/27/24 17:20 Blood Blood Culture - Preliminary NO GROWTH AFTER 24 HOURS 03/28/24 07:30 Foot,Left - Drainage Gram Stain - Final Constitutional: Present no acute distress, obese and cooperative Head: Present normocephalic Eye: Present as per HPI Neck: Present normal inspection and trachea midline Respiratory: Present normal respiratory effort and able to speak in complete sentences Cardiac: Present posterior tibial pulses present and pedal pulses present Comment:: 2+ pedal edema, palpable DP/PT pulses to Left foot, Right AKA noted. Has recent LLE stent. GI: Present soft Comments:: deferred Rectal (male): Present deferred (male): Present deferred Extremities: Present normal capillary refill and edema (2+ Left pedal edema, LLE cellulitis, Ulcer to L Lower leg cultured.); Absent calf tenderness Comment:: S/P Left Transmetatarsal amputation, TOÑO drain and sutures intact. Bloody drainage expressed from the site and approx. 20 cc of bloody drainage in the TOÑO bulb. Improvement noted to the left lower leg and foot cellulitis. Skin: Present intact, erythema (improving), warm and wounds (S/P Left TMA, left lower leg and left heel. ) Neuro: Present Motor Function Intact, Grossly Intact, oriented x 3, tone normal and moves all extremities Comment:: Hx of neuropathy Ankle: left: swelling (LLE edema, erythema improving ), left: tenderness, left: wound (s/p left TMA, ulcer to left heel) and left: decreased ROM (Right AKA noted) Feet/Toes: left: erythema, left: swelling (S/P L TMA), left: tenderness (amp site) and left: wound (left TMA, left heel ulcer) and bilateral: amputation (L TMA, Right AKA ) and bilateral: decreased ROM Inspection: Present foot deformity deformity: Present hammer toes, infection (cellulitis Left lower leg and foot ) and other (Right AKA, s/p left TMA) Pulses: L dorsalis pedis pulse: normal, R dorsalis pedis pulse: normal, L posterior tibial pulse: normal and R posterior tibial pulse: normal CFT: normal: CFT Results Labs 03/29/24 06:04 03/29/24 06:04 Labs: Abnormal lab results 03/28/24 03/28/24 03/28/24 Range/Units 06:12 11:02 19:57 WBC 4.3 L D (4.8-10.8) K/mm3 RBC 2.96 L (4.60-6.20) M/mm3 Hgb 8.3 L (14.1-18.0) g/dL Hct 25.1 L (42.0-52.0) % RDW 17.7 H (11.5-17.5) % Plt Count 94 L (142-424) K/mm3 Chloride 110 H (98-107) mmol/L Glucose 101 H (74-100) mg/dl POC Glucose 116 H 121 H (70-110) Calcium 8.0 L (8.4-10.2) mg/dl C-Reactive Protein (0-4) mg/L Total Protein 5.8 L (6.3-8.2) g/dl Albumin 2.9 L D (3.5-5.0) g/dl Albumin/Globulin Ratio 1.0 L (1.1-1.8) 03/29/24 Range/Units 06:04 WBC 4.7 L (4.8-10.8) K/mm3 RBC 2.83 L (4.60-6.20) M/mm3 Hgb 7.9 L (14.1-18.0) g/dL Hct 24.0 L (42.0-52.0) % RDW 17.7 H (11.5-17.5) % Plt Count 90 L (142-424) K/mm3 Chloride 111 H (98-107) mmol/L Glucose (74-100) mg/dl POC Glucose (70-110) Calcium 8.2 L (8.4-10.2) mg/dl C-Reactive Protein 38.7 H (0-4) mg/L Total Protein 5.6 L (6.3-8.2) g/dl Albumin 2.8 L (3.5-5.0) g/dl Albumin/Globulin Ratio 1.0 L (1.1-1.8) H & H 03/27/24 03/28/24 03/29/24 Range/Units 19:37 06:12 06:04 Hgb 8.5 L 8.3 L 7.9 L (14.1-18.0) g/dL Hct 25.7 L 25.1 L 24.0 L (42.0-52.0) % All other labs normal. Assessment and Plan *Assessment and plan (1) S/P transmetatarsal amputation of foot: Status: Acute Qualifiers: Laterality: left Qualified Code(s): Z89.432 - Acquired absence of left foot Category: Surgical Code(s): Z89.439 - Acquired absence of unspecified foot (2) Diabetic ulcer of left heel associated with diabetes mellitus due to underlying condition, limited to breakdown of skin: Status: Acute Category: Medical Code(s): E08.621 - Diabetes mellitus due to underlying condition with foot ulcer; L97.421 - Non-pressure chronic ulcer of left heel and midfoot limited to breakdown of skin (3) Cellulitis of left leg: Status: Acute Category: Medical Code(s): L03.116 - Cellulitis of left lower limb (4) Diabetic foot infection: Status: Acute Category: Medical Code(s): E11.628 - Type 2 diabetes mellitus with other skin complications; L08.9 - Local infection of the skin and subcutaneous tissue, unspecified (5) Osteomyelitis: Status: Acute Qualifiers: Laterality: left Osteomyelitis location: foot Osteomyelitis type: s ubacute Qualified Code(s): M86.272 - Subacute osteomyelitis, left ankle and foot Category: Medical Code(s): M86.9 - Osteomyelitis, unspecified (6) Chronic wound: Status: Acute Category: Medical Code(s): T14.8XXA - Other injury of unspecified body region, initial encounter (7) PAD (peripheral artery disease): Status: Acute Category: Medical Code(s): I73.9 - Peripheral vascular disease, unspecified (8) Diabetes: Status: Acute Qualifiers: Diabetes mellitus complication detail: with peripheral angiopathy without gangrene Diabetes mellitus complication status: with circulatory complication Diabetes mellitus 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 D iabetes mellitus type: type 2 Qualified Code(s): E11.51 - Type 2 diabetes mellitus with diabetic peripheral angiopathy without gangrene; Z79.4 - termination clerk (current) use of insulin Category: Medical Code(s): E11.9 - Type 2 diabetes mellitus without complications (9) Functional paraparesis: Status: Acute Category: Medical Code(s): F44.4 - Conversion disorder with motor symptom or deficit (10) Seizure disorder: Status: Chronic Category: Medical Code(s): G40.909 - Epilepsy, unspecified, not intractable, without status epilepticus (11) HTN (hypertension): Status: Chronic Qualifiers: Hypertension type: primary hypertension Qualified Code(s): I10 - Essential (primary) hypertension Category: Medical Code(s): I10 - Essential (primary) hypertension (12) Self-care deficit: Status: Acute Category: Medical Code(s): Z78.9 - Other specified health status (13) Obesity (BMI 30-39.9): Status: Chronic Category: Medical Code(s): E66.9 - Obesity, unspecified (14) Lumbar spinal stenosis: Status: Acute Qualifiers: Neurogenic claudication status: unspecified Qualified Code(s): M48.061 - Spinal stenosis, lumbar region without neurogenic claudication Category: Medical Code(s): M48.061 - Spinal stenosis, lumbar region without neurogenic claudication (15) Left buttock abscess: Problem Comment: Left medial buttock/ischiorectal abscess Status: Acute Category: Medical Code(s): L02.31 - Cutaneous abscess of buttock (16) Right above-knee amputee: Status: Acute Category: Medical Code(s): Z89.611 - Acquired absence of right leg above knee Plan 03/29/24: Surgery Date: 03/28/24: S/p Left foot transmetatarsal amputation, Left foot irrigation and wide excisional debridement POD #1 Plan: Patient is to maintain dressing clean dry and intact. Float/off load left heel on pillow. Continue IV antibiotics: recommend IV Vanco and Meropenem (based on prior cultures-see above). NWB to LLE with wheelchair. Dressing change: a TOÑO drain intact, dorsal medially. The wounds were cleansed. Xeroform, betadine soaked gauze, ABD pad and dry sterile dressing was then applied to the left foot. Diabetic Diet Specimens:: Pending Cultures: Left 1-2nd metatarsals Left 3-5th metatarsals Path: Left distal foot/toes Left 2nd metatarsal Left 3rd metatarsal bone proximal margin Podiatry will follow while inpatient
--- NOTE | 2024-03-29 07:08 | P.PNANES_ITS ---
[facility] Anesthesia Record Part II Anesthesia Record Part II Discharge Time: 19:55 Destination: Surgical Day Care (OP Surgery) PACU nurse assessment reviewed?: Yes Patient Condition:: Good Anesthesia Complications:: None Swallowing reflex intact?: Yes Airway Patency: Patent Cyanosis?: No Blood Pressure: 116/93 SaO2: 97 Respiratory Rate: 16 Pulse Rate: 79 Temperature: 97.3 F Mental Status: Alert & Oriented Pain level:: 0 Nausea and/or vomitting:: None Intake, IV Amount: 500 Hydration: Adequate
[2024-03-29 07:29] LABS: Erythrocyte Sedimentation Rate 126 mm/hr (0-20)
--- NOTE | 2024-03-29 08:47 | P.PN_ITS ---
Subjective Patient reports: no new complaints Exam Data for Last 24 hours Vital signs and Labs for Last 24 Hours: Temp Pulse Resp BP Pulse Ox O2 Del Method 98.1 F 88 16 149/69 H 98 Room Air 03/29/24 04:00 03/29/24 04:00 03/29/24 07:10 03/29/24 04:00 03/29/24 04:00 03/29/24 06:57 Laboratory Results - last 24 hr 03/28/24 11:02: POC Glucose 116 H 03/28/24 16:38: POC Glucose 92 03/28/24 18:01: Urine Color Yellow, Urine Appearance Clear, Urine pH 6.0, Ur Specific [place] 1.010, Urine Protein Negative, Urine Glucose (UA) Negative, Urine Ketones Negative, Urine Blood Negative, Urine Nitrate Negative, Urine Bilirubin Negative, Urine Urobilinogen 0.2, Ur Leukocyte Esterase Negative, Urine RBC None, Urine WBC Occasional, Ur Squamous Epith Cells Occasional, Urine Bacteria None 03/28/24 19:57: POC Glucose 121 H 03/29/24 05:42: POC Glucose 90 03/29/24 06:04: WBC 4.7 L, RBC 2.83 L, Hgb 7.9 L, Hct 24.0 L, MCV 84.8, MCH 27.8, MCHC 32.8, RDW 17.7 H, Plt Count 90 L, MPV 9.1, Neut % (Auto) 67.7, Lymph % (Auto) 23.4, [place] % (Auto) 8.0, Eos % (Auto) 0.6, Baso % (Auto) 0.2, Neut # (Auto) 3.2, Lymph # (Auto) 1.1, [place] # (Auto) 0.4, Eos # (Auto) 0.0, Baso # (Auto) 0.0, ESR 126 H, Sodium 138, Potassium 3.7, Chloride 111 H, Carbon Dioxide 22, Anion Gap 8.7, BUN 15, Creatinine 0.70, Estimated Creat Clear 120, Estimated GFR 111, Est GFR ( Amer) 135, Glucose 79 D, Calcium 8.2 L, Magnesium 1.6 , Total Bilirubin 0.3, AST 27 D, ALT 23, Alkaline Phosphatase 83, C-Reactive Protein 38.7 H, Total Protein 5.6 L, Albumin 2.8 L, Globulin 2.8, Albumin/Globulin Ratio 1.0 L I & O for Last 24 hours: Intake & Output 03/26/24 03/27/24 03/28/24 03/29/24 11:59 11:59 11:59 11:59 Intake Total 2976 / 2976 Output Total 1300 / 1300 Balance 1676 / 1676 Weight 255 lb 1.197 oz 272 lb 6.4 oz Microbiology Reports for the Last 24 Hours: Microbiology 03/27/24 17:20 Blood Blood Culture - Preliminary NO GROWTH AFTER 24 HOURS 03/27/24 17:20 Blood Blood Culture - Preliminary NO GROWTH AFTER 24 HOURS 03/28/24 07:30 Foot,Left - Drainage Gram Stain - Final Constitutional Constitutional: no acute distress *Routine Respiratory Exam Respiratory: Absent respiratory distress *Routine Cardiovascular Exam Cardiovascular: Absent tachycardia *Routine Skin Exam Comments: Dressings intact. No spreading cellulitis. Progress Note: A&P Assessment and plan (1) Left buttock abscess: Problem details: Left medial buttock/perianal Status: Acute Assessment and plan: Continue dressing changes
[2024-03-29] MEDS: FINASTERIDE 5 MG PO (09:59)
[2024-03-29] MEDS: METOCLOPRAMIDE 5 MG PO ×2 (10:00→21:23)
[2024-03-29] MEDS: PAT OWN MED ***PANTOPRAZOLE 40MG 40 MG PO (10:02)
[2024-03-29] MEDS: DOCUSATE SODIUM 250 MG PO ×2 (10:03→21:17)
[2024-03-29] MEDS: PAT OWN MED ***ATORVASTATIN 40MG 40 MG PO (10:04)
[2024-03-29] MEDS: LAMOTRIGINE 100 MG PO ×2 (10:06→21:21)
[2024-03-29] MEDS: PAT OWN MED ***ASPIRIN EC 81MG 81 MG PO (10:06)
[2024-03-29] MEDS: ENOXAPARIN 40MG/0.4ML SYRINGE 40 MG SQ (10:11)
[2024-03-29] MEDS: CLOPIDOGREL 75MG TAB 75 MG PO (10:27)
[2024-03-29] MEDS: METOPROLOL SUCCINATE XL 25MG TABLET 25 MG PO (10:28)
[2024-03-29] MEDS: MAGNESIUM SULFATE IN WATER 2 GM/50 ML PIGGYBACK IV (10:29)
--- NOTE | 2024-03-29 11:23 | SW/DCPLANNER ---
Addendum entered by [facility] 03/31/24 12:20: A.D. w/ [facility] evaluated patient at bedside. Patient stated that he is not interested in Hospice services at this time. Per A.D. patient stated that he would contact her once he is ready for services and Hospice does not need to contact him. Addendum entered by [facility] 03/31/24 10:45: I have also updated Héctor mcgraw/ [facility] that patient will discharge home tomorrow morning. Héctor did confirm that services can start Wednesday04/02/24. Addendum entered by [facility] 03/31/24 10:44: Patient has expressed an interest in Hospice services once IV antibiotics are completed. I will fax information to Sapna w/ Hospice and request that they come evaluate at bedside today. Jania mcgraw/ [facility] stated that medications will be delivered today. Addendum entered by [facility] 03/30/24 12:53: Jania Ponce stated that patient will be covered at 100% and she will make contact w/ patient regarding delivery. Addendum entered by [facility] 03/30/24 11:07: Patient information/order will be faxed to [facility] for out of pocket expense for IV antibiotics (Vanc and Cefepime). I will follow up once Karen Ponce reviews patient information/order. Addendum entered by [facility] 03/29/24 15:23: I spoke w/ patient regarding discharge plans. Per MD patient will more than likely need silk soaker IV antibiotics and could be 2-3 times a day and daily dressing changes (including packing). Patient is very adamant that he is not interested in placement at time of discharge. Patient stated that he plans to return home and resume home health services. Patient requested that [facility] come three times a week instead of two. I explained to patient that living at home alone and the high level of assistance that he will require is not a safe option. Patient acknowledged my statement and stated I will not go back into a long term facility . I did discuss w/ patient Hospice services (this was also discussed prior hospital admission): patient stated that he does have their phone number and will contact them once he is ready for their services. Patient prefers to return home w/ home health services at time of discharge. I have relayed information to Dr Coto. Discharge date is unknown at this time. I will continue to follow up w/ patient and MD until medically stable for discharge. Original Note: This patient is currently established w/ [facility]. I have faxed updated information to [facility]/ [facility]. I will continue to follow up w/ patient regarding discharge plans during hospital admission. Discharge date is unknown at this time.
[2024-03-29 12:16] LABS: POC Glucose,Bedside 130 (70-110)
--- OUTSIDE RECORDS SUMMARY | 2024-03-29 12:31 | XMS_ITS ---
Author Name Unknown Address [address] [place] [address] Phone Organization [facility] Address [address] [place] [address] Phone Care Team Providers Care Sales Representative Meats Name Role Phone Mckenna MURILLO, Britton Clifford [ ] Conditions or Problems No information available. Medications Medication Instructions Start Date Stop Date Generic Name NDC Provider ATORVASTATIN CALCIUM 40 MG TABS Take 2 tablet by mouth every night atorvastatin [id number] Daria Minor METFORMIN HCL 500 MG TABS Take 2 tablet by mouth twice a day metformin [id number] Daria Minor CLOPIDOGREL BISULFATE 75 MG TABS Take 1 tablet by mouth once a day clopidogrel 17335847944 Daria Minor PEG 3350 17 GM PACK Take 17 gram by mouth once a day as needed polyethylene glycol 3350 [id number] Daria Minor LAMOTRIGINE 100 MG TABS Take 1 tablet by mouth every morning lamotrigine [id number] Daria Minor FINASTERIDE 5 MG TABS Take 1 tablet by mouth once a day finasteride 60654176665 Daria Minor DOCUSATE SODIUM 250 MG CAPS Take 1 capsule by mouth twice a day docusate sodium 42051782455 Daria Minor ASPIRIN 81 MG TBEC Take 1 tablet by mouth once a day aspirin 56275841383 Daria Minor FUROSEMIDE 40 MG TABS Take 1 tablet by mouth once a day furosemide 19733425731 Daria Minor Thera M Plus (ferrous fumarat) 9 mg iron-400 mcg tablet Take 1 tablet by mouth once a day [id number] 85993959803 Daria Minor FERROUS SULFATE 325 (65 Fe) MG TABS Take 1 tablet by mouth every morning ferrous sulfate 90202400584 Daria Garcia LAMOTRIGINE 25 MG TABS Take 10 tablet by mouth every night lamotrigine 43256607022 Daria Garcia BACLOFEN 20 MG TABS Take 1 tablet by mouth as needed baclofen 80641490007 Daria Garcia TAMSULOSIN HCL 0.4 MG CAPS Take 2 capsule by mouth once a day tamsulosin 92721416655 Daria Garcia DIAZEPAM 2 MG TABS Take 1 tablet by mouth twice a day as needed diazepam 66829252194 Daria Garcia LOSARTAN POTASSIUM 50 MG TABS Take 1 tablet by mouth once a day losartan 42996542583 Daria Garcia BUSPIRONE HCL 5 MG TABS Take 1 tablet by mouth three times a day buspirone 26515697703 Daria Garcia METOPROLOL SUCCINATE ER 25 MG [id number] Take 1 tablet by mouth once a day metoprolol succinate 38242825267 Daria Garcia ubrogepant Take 1 tablet by mouth once a day as needed UBRELVY Daria Garcia GLIPIZIDE 5 MG TABS Take 1 tablet by mouth twice a day glipizide 54154116750 Daria Garcia Medications Administered No information available. Allergies, Adverse Reactions, Alerts No information available. Results Date Name Value Unit Range Flag Description Office Visit: Office Visit:jaosn griffin 15 MEDS REVIEW Done Documenta tion [...]
--- OUTSIDE RECORDS SUMMARY | 2024-03-29 12:31 | XMS_ITS ---
Author Name Unknown Address [address] [place] [address] Phone Organization [facility] Address [address] [place] [address] Phone Care Team Providers Care Global Account Manager Name Role Phone Mckenna MURILLO, Britton Clifford [phone] [ ] Conditions or Problems No information [...]
--- OUTSIDE RECORDS SUMMARY | 2024-03-29 12:31 | XMS_ITS | Clinical Summary ---
Author Name Unknown Address [address] [place] [address] Phone Organization [facility] Address [address] [place] [address] Phone Care Team Providers Care Director Franchise Sales Name Role Phone Cecil Griffin MD Unavailable [phone] Conditions or Problems Problem Name Problem Code Onset Date Status Entry Date Provider Comment Standard Description Annotate DM Non-pressure chronic ulcer of left heel, black/dry (document depth) 878476434 (SNOMED CT) 09/19 Active 09/19 Crys Alfredo Chronic ulcer of foot Infection, local skin/subcuta neous tissue 958332924 (SNOMED CT) 09/19 Active 09/19 Crys Alfredo Localized infection of skin AND/OR subcutaneous tissue Gangrene with DM II PVD 67639749 (SNOMED CT) 09/19 Active 09/19 Crys Alfredo Type 2 diabetes mellitus DM II with diabetic PVD 476786560 (SNOMED CT) Active Crys Alfredo Peripheral vascular disease Diabetes mellitus, type II with peripheral vascular disorder, with gangrene 083491930 (SNOMED CT) Resolved Crys Alfredo Peripheral circulatory disorder due to type 2 diabetes mellitus Presence of ambrose catheter 258993793 (SNOMED CT) Resolved Crys Alfredo Urinary catheter in situ Benign Essential Hypertension 50458427 (SNOMED CT) Active Crys Alfredo Benign hypertension DM II with diabetic polyneuropat hy E11.42 (ICD-10-CM) Active Crys Alfredo Type 2 diabetes mellitus with diabetic polyneuropathy Other obesity due to excess calories 412501012 (SNOMED CT) Active Myranda Zelaya Simple obesity Presence of ambrose catheter 712926963 (SNOMED CT) Removed Bibi Edelen Urinary catheter in situ Pressure ulcer of left buttock, stage 1 16781451809 593623 (SNOMED CT) Active Bibi Edelen Pressure injury of buttock stage I Pressure ulcer of right buttock, stage 1 02732673879 107 (SNOMED CT) Active Bibi Edelen Pressure injury of right buttock stage I Cellulitis of left lower limb 431987908 (SNOMED CT) Active Bibi Edelen Cellulitis of leg, excluding foot Diabetes mellitus, type II with peripheral vascular disorder, with gangrene 355527678 (SNOMED CT) Removed Bibi Edelen Peripheral circulatory disorder due to type 2 diabetes mellitus Hx of DVT 495331328 (SNOMED CT) Active Bibi Edelen History of deep vein thrombosis Amputation of right leg above knee 747135477 (SNOMED CT) Active Bibi Edelen Amputated above knee Diabetes mellitus, type II with peripheral vascular disorder, without gangrene 017832180 (SNOMED CT) Inactive Bibi Edelen Peripheral circulatory disorder due to type 2 diabetes mellitus Diabetes mellitus, type II with peripheral neuropathy 81223569502 07 (SNOMED CT) Inactive Bibi Edelen Peripheral neuropathy due to type 2 diabetes mellitus Hypertension 17897115 (SNOMED CT) Inactive Bibi Edelen Hypertensive disorder Medications Medication Instructions Start Date Stop Date Generic Name NDC Provider DOXYCYCLINE HYCLATE 100 MG CAPS Take 1 capsule by mouth 2 (Two) Times a Day for 10 days. doxycycline hyclate 39176655042 QIE qieuser AMOXICILLIN-POT CLAVULANATE 875-125 MG TABS 1 {tbl} Oral amoxicillin-pot clavulanate 52597515433 QIE qieuser ATORVASTATIN CALCIUM 40 MG TABS Take 2 tablet by mouth every night atorvastatin 63693628265 Daria Minor METFORMIN HCL 500 MG TABS Take 2 tablet by mouth twice a day metformin 98074311130 Daria Minor CLOPIDOGREL BISULFATE 75 MG TABS Take 1 tablet by mouth once a day clopidogrel 74870193331 Daria Minor PEG 3350 17 GM PACK Take 17 gram by mouth once a day as needed polyethylene glycol 3350 92790067043 Daria Minor LAMOTRIGINE 100 MG TABS Take 1 tablet by mouth every morning lamotrigine 32216325378 Daria Minor FINASTERIDE 5 MG TABS Take 1 tablet by mouth once a day finasteride 69059668784 Daria Minor DOCUSATE SODIUM 250 MG CAPS Take 1 capsule by mouth twice a day docusate sodium 47032737252 Daria Minor ASPIRIN 81 MG TBEC Take 1 tablet by mouth once a day aspirin 32759734202 Daria Minor FUROSEMIDE 40 MG TABS Take 1 tablet by mouth once a day furosemide 03541962553 Daria Minor Thera M Plus (ferrous fumarat) 9 mg iron-400 mcg tablet Take 1 tablet by mouth once a day qqibztev-rugm-k c-vghvwtr-zvue 20137178697 Daria Minor FERROUS SULFATE 325 (65 Fe) MG TABS Take 1 tablet by mouth every morning ferrous sulfate 71988762058 Daria Minor LAMOTRIGINE 25 MG TABS Take 10 tablet by mouth every night lamotrigine 32348236110 Daria Minor BACLOFEN 20 MG TABS Take 1 tablet by mouth as needed baclofen 91371703234 Daria Minor TAMSULOSIN HCL 0.4 MG CAPS Take 2 capsule by mouth once a day tamsulosin 24389277617 Daria Minor DIAZEPAM 2 MG TABS Take 1 tablet by mouth twice a day as needed diazepam 93024510587 Daria Minor LOSARTAN POTASSIUM 50 MG TABS Take 1 tablet by mouth once a day losartan 51206675972 Daria Minor BUSPIRONE HCL 5 MG TABS Take 1 tablet by mouth three times a day buspirone 45877756812 Daria Minor METOPROLOL SUCCINATE ER 25 MG TN00X-CAX Take 1 tablet by mouth once a day metoprolol succinate 08703412000 Daria Minor ubrogepant Take 1 tablet by mouth once a day as needed UBRELVY Daria Minor GLIPIZIDE 5 MG TABS Take 1 tablet by mouth twice a day glipizide 92632844854 Daria Minor ubrogepant Take 1 tablet by mouth Daily As Needed. UBRELVY QIE qieuser TAMSULOSIN HCL 0.4 MG CAPS Take 2 capsules by mouth Daily. tamsulosin 26851241179 QIE qieuser PEG 3350 17 GM PACK Take 17 g by mouth Daily As Needed. polyethylene glycol 3350 55846060962 QIE qieuser Thera M Plus (ferrous fumarat) 9 mg iron-400 mcg tablet Take 1 tablet by mouth Daily. mjezrcge-hmsv-b a-qqnxqhl-zfxh 83678344924 QIE qieuser METOPROLOL SUCCINATE ER 25 MG TG11L-SFR Take 1 tablet by mouth Daily. metoprolol succinate 75918946171 QIE qieuser METFORMIN HCL 500 MG TABS Take 2 tablets by mouth 2 (Two) Times a Day With Meals. metformin 05590457442 QIE qieuser LOSARTAN POTASSIUM 50 MG TABS Take 1 tablet by mouth Daily. losartan 04472689262 QIE qieuser LAMOTRIGINE 25 MG TABS Take 10 tablets by mouth Every Night. lamotrigine 89659195751 QIE qieuser LAMOTRIGINE 100 MG TABS Take 1 tablet by mouth Every Morning. lamotrigine 33352436224 QIE qieuser GLIPIZIDE 5 MG TABS Take 1 tablet by mouth 2 (Two) Times a Day Before Meals. glipizide 18939262760 QIE qieuser FUROSEMIDE 40 MG TABS Take 1 tablet by mouth Daily. furosemide 82249593211 QIE qieuser FINASTERIDE 5 MG TABS Take 1 tablet by mouth Daily. finasteride 31348332115 QIE qieuser FERROUS SULFATE 325 (65 Fe) MG TABS Take 1 tablet by mouth Daily With Breakfast. ferrous sulfate 77847800591 QIE qieuser DOXYCYCLINE HYCLATE 100 MG CAPS Take 1 capsule by mouth 2 (Two) Times a Day for 7 days. doxycycline hyclate 59034203897 QIE qieuser DOCUSATE SODIUM 250 MG CAPS Take 1 capsule by mouth 2 (Two) Times a Day. docusate sodium 15511652211 QIE qieuser DIAZEPAM 2 MG TABS Take 1 tablet by mouth 2 (Two) Times a Day As Needed for Anxiety. diazepam 85817603222 QIE qieuser CLOPIDOGREL BISULFATE 75 MG TABS Take 1 tablet by mouth Daily. clopidogrel 79038051008 QIE qieuser BUSPIRONE HCL 5 MG TABS Take 1 tablet by mouth 3 (Three) Times a Day. buspirone 80985735725 QIE qieuser BACLOFEN 20 MG TABS Take 1 tablet by mouth As Needed for Muscle Spasms. baclofen 56736987070 QIE qieuser ATORVASTATIN CALCIUM 40 MG TABS Take 2 tablets by mouth Every Night. atorvastatin 70027089801 QIE qieuser ASPIRIN 81 MG TBEC Take 1 tablet by mouth Daily. OTC aspirin 40215007596 QIE qieuser AMOXICILLIN-POT CLAVULANATE 875-125 MG TABS Take 1 tablet by mouth 2 (Two) Times a Day for 7 days. amoxicillin-pot clavulanate 97069917528 QIE qieuser Medications Administered No information available. [...]
--- OUTSIDE RECORDS SUMMARY | 2024-03-29 12:31 | XMS_ITS ---
Author Name Unknown Address [address] [place] [address] Phone Organization [facility] Address [address] [place] [address] Phone Care Team Providers Care Professional Athlete Name Role Phone Daria Garcia Unavailable Unavailable Conditions or Problems No information available. Medications Medication Instructions Start Date Stop Date Generic Name NDC Provider ubrogepant Take 1 tablet by mouth Daily As Needed. UBRELVY QIE qieuser TAMSULOSIN HCL 0.4 MG CAPS Take 2 capsules by mouth Daily. tamsulosin 53595878143 QIE qieuser PEG 3350 17 GM PACK Take 17 g by mouth Daily As Needed. polyethylene glycol 3350 98014705315 QIE qieuser Thera M Plus (ferrous fumarat) 9 mg iron-400 mcg tablet Take 1 tablet by mouth Daily. zqrjcjza-lyjv-o w-bhiijnf-vyap 00582270547 QIE qieuser METOPROLOL SUCCINATE ER 25 MG [id number] Take 1 tablet by mouth Daily. metoprolol succinate 10512721071 QIE qieuser METFORMIN HCL 500 MG TABS Take 2 tablets by mouth 2 (Two) Times a Day With Meals. metformin 92414621405 QIE qieuser LOSARTAN POTASSIUM 50 MG TABS Take 1 tablet by mouth Daily. losartan 36312656000 QIE qieuser LAMOTRIGINE 25 MG TABS Take 10 tablets by mouth Every Night. lamotrigine 30848088717 QIE qieuser LAMOTRIGINE 100 MG TABS Take 1 tablet by mouth Every Morning. lamotrigine 58073021428 QIE qieuser GLIPIZIDE 5 MG TABS Take 1 tablet by mouth 2 (Two) Times a Day Before Meals. glipizide 13930701062 QIE qieuser FUROSEMIDE 40 MG TABS Take 1 tablet by mouth Daily. furosemide 94041372449 QIE qieuser FINASTERIDE 5 MG TABS Take 1 tablet by mouth Daily. finasteride 45646372135 QIE qieuser FERROUS SULFATE 325 (65 Fe) MG TABS Take 1 tablet by mouth Daily With Breakfast. ferrous sulfate 06884889860 QIE qieuser DOXYCYCLINE HYCLATE 100 MG CAPS Take 1 capsule by mouth 2 (Two) Times a Day for 7 days. doxycycline hyclate 07012247339 QIE qieuser DOCUSATE SODIUM 250 MG CAPS Take 1 capsule by mouth 2 (Two) Times a Day. docusate sodium 70639135411 QIE qieuser DIAZEPAM 2 MG TABS Take 1 tablet by mouth 2 (Two) Times a Day As Needed for Anxiety. diazepam 71377357962 QIE qieuser CLOPIDOGREL BISULFATE 75 MG TABS Take 1 tablet by mouth Daily. clopidogrel 15504651837 QIE qieuser BUSPIRONE HCL 5 MG TABS Take 1 tablet by mouth 3 (Three) Times a Day. buspirone 61863822995 QIE qieuser BACLOFEN 20 MG TABS Take 1 tablet by mouth As Needed for Muscle Spasms. baclofen 57333007326 QIE qieuser ATORVASTATIN CALCIUM 40 MG TABS Take 2 tablets by mouth Every Night. atorvastatin 15854075391 QIE qieuser ASPIRIN 81 MG TBEC Take 1 tablet by mouth Daily. OTC aspirin 78232222390 QIE qieuser AMOXICILLIN-POT CLAVULANATE 875-125 MG TABS Take 1 tablet by mouth 2 (Two) Times a Day for 7 days. amoxicillin-pot clavulanate 43605309170 QIE qieuser Medications Administered No information available. Allergies, Adverse Reactions, Alerts No information available. Results No information available. Plan of Care No information available. Procedures No information available. Vital Signs No information available. Immunizations No information available. Advance Directives No information available.
--- OUTSIDE RECORDS SUMMARY | 2024-03-29 12:31 | XMS_ITS ---
Author Name Unknown Address [address] [place] [address] Phone Organization [facility] Address [address] [place] [address] Phone Care Team Providers Care Vamp Presser Name Role Phone Chad Roberto Unavailable Unavailable Conditions or Problems No information available. Medications Medication Instructions Start Date Stop Date Generic Name [facility] Provider DOXYCYCLINE HYCLATE 100 MG CAPS Take 1 capsule by mouth 2 (Two) Times a Day for 10 days. 1 doxycycline hyclate 26358996814 QIE qieuser AMOXICILLIN-POT CLAVULANATE 875-125 MG TABS 1 {tbl} Oral 1 amoxicillin-po t clavulanate 62592506709 QIE qieuser Medications Administered No information available. Allergies, Adverse Reactions, Alerts No information available. Results No information available. Plan of Care No information available. Procedures No information available. Vital Signs No information available. Immunizations No information available. Advance Directives No information available.
--- NOTE | 2024-03-29 13:09 | EXP.ACUTE.PN ---
Subjective *Date: 03/29/24 *Time: 18:40 Interval history: Patient tolerated surgery well yesterday. Having pain in left leg and buttocks. Stable on room air. No nausea or vomiting. Discussion today, adamant about going home when medically stable to discharge. Medical Exam Vital signs and Labs for Last 24 Hours: Vital Signs Temp Pulse Pulse Resp BP BP Pulse Ox 03/29/24 11:29 97.8 F 90 18 129/60 92 L 03/29/24 11:00 03/29/24 09:00 03/29/24 08:00 03/29/24 08:00 98.3 F 99 H 18 127/74 92 L 03/29/24 07:10 16 03/29/24 06:57 03/29/24 05:00 03/29/24 04:00 98.1 F 88 16 149/69 H 98 03/29/24 03:00 03/29/24 02:55 97.8 F 88 16 103/63 L 97 03/29/24 01:55 91 H 18 123/51 L 95 03/29/24 01:00 03/29/24 00:55 94 H 16 112/89 95 03/28/24 23:55 93 H 14 106/69 L 91 L 03/28/24 23:00 03/28/24 22:55 88 16 134/87 94 L 03/28/24 22:25 73 18 143/79 H 91 L 03/28/24 21:55 73 16 141/84 H 96 03/28/24 21:25 74 16 127/79 97 03/28/24 21:00 03/28/24 20:55 89 18 132/76 94 L 03/28/24 20:40 85 15 124/82 91 L 03/28/24 20:25 81 16 104/80 L 96 03/28/24 20:10 97.6 F 80 15 119/76 97 03/28/24 20:00 95 03/28/24 19:55 79 16 116/93 H 97 03/28/24 19:45 79 16 121/67 95 03/28/24 19:37 97.3 F L 84 20 120/66 03/28/24 19:35 88 16 107/68 L 94 L 03/28/24 19:25 97.3 F L 84 16 120/66 95 03/28/24 16:48 07/16/24 16:00 97.8 F 89 18 133/69 97 03/28/24 14:49 O2 Del Method 03/29/24 11:29 Room Air 03/29/24 11:00 Room Air 03/29/24 09:00 Room Air 03/29/24 08:00 Room Air 03/29/24 08:00 Room Air 03/29/24 07:10 03/29/24 06:57 Room Air 03/29/24 05:00 Room Air 03/29/24 04:00 Room Air 03/29/24 03:00 Room Air 03/29/24 02:55 Room Air 03/29/24 01:55 Room Air 03/29/24 01:00 Room Air 03/29/24 00:55 Room Air 03/28/24 23:55 Room Air 03/28/24 23:00 Room Air 03/28/24 22:55 Room Air 03/28/24 22:25 Room Air 03/28/24 21:55 Room Air 03/28/24 21:25 03/28/24 21:00 Room Air 03/28/24 20:55 03/28/24 20:40 Room Air 03/28/24 20:25 03/28/24 20:10 Room Air 03/28/24 20:00 Room Air 03/28/24 19:55 Room Air 03/28/24 19:45 Room Air 03/28/24 19:37 03/28/24 19:35 Room Air 03/28/24 19:25 Room Air 03/28/24 16:48 Room Air 03/28/24 16:00 Room Air 03/28/24 14:49 Room Air Intake and Output 03/28/24 03/29/24 03/29/24 23:59 07:59 15:59 Intake Total 996 / 1396 1980 / 2570 590 / 2570 Output Total 1300 / 1300 Balance 996 / 1396 680 / 1270 590 / 1270 Intake: Intake, Oral Amount 400 / 940 540 / 940 Intake, Total IV Amount 500 / 500 1580 / 1630 50 / 1630 0.9 % Sodium Chloride 1000ML 1, 1080 / 1080 000 ml @ 50 mls/hr IV .Q20H [facility] Rx#:[id number] Magnesium Sulfate in Water 2 gm 50 / 50 In 50 ml @ 50 mls/hr IV ONCE ONE Rx#:[id number] Infusion Intake 496 / 496 0.9 % Sodium Chloride 1000ML 1, 496 / 496 000 ml @ 50 mls/hr IV .Q20H [facility] Rx#:[id number] Output: Output, Urine Amount (Catheter) 1300 / 1300 [place] 1300 / 1300 Other: Weight 123.559 kg Patient Weight 03/29/24 23:59 Weight 123.559 kg Laboratory Results - last 24 hr 03/28/24 16:38: POC Glucose 92 03/28/24 18:01: Urine Color Yellow, Urine Appearance Clear, Urine pH 6.0, Ur Specific [place] 1.010, Urine Protein Negative, Urine Glucose (UA) Negative, Urine Ketones Negative, Urine Blood Negative, Urine Nitrate Negative, Urine Bilirubin Negative, Urine Urobilinogen 0.2, Ur Leukocyte Esterase Negative, Urine RBC None, Urine WBC Occasional, Ur Squamous Epith Cells Occasional, Urine Bacteria None 03/28/24 19:57: POC Glucose 121 H 03/29/24 05:42: POC Glucose 90 03/29/24 06:04: WBC 4.7 L, RBC 2.83 L, Hgb 7.9 L, Hct 24.0 L, MCV 84.8, MCH 27.8, MCHC 32.8, RDW 17.7 H, Plt Count 90 L, MPV 9.1, Neut % (Auto) 67.7, Lymph % (Auto) 23.4, [place] % (Auto) 8.0, Eos % (Auto) 0.6, Baso % (Auto) 0.2, Neut # (Auto) 3.2, Lymph # (Auto) 1.1, [place] # (Auto) 0.4, Eos # (Auto) 0.0, Baso # (Auto) 0.0, ESR 126 H, Sodium 138, Potassium 3.7, Chloride 111 H, Carbon Dioxide 22, Anion Gap 8.7, BUN 15, Creatinine 0.70, Estimated Creat Clear 120, Estimated GFR 111, Est GFR ( Amer) 135, Glucose 79 D, Calcium 8.2 L, Magnesium 1.6, Total Bilirubin 0.3, AST 27 D, ALT 23, Alkaline Phosphatase 83, C-Reactive Protein 38.7 H, Total Protein 5.6 L, Albumin 2.8 L, Globulin 2.8, Albumin/Globulin Ratio 1.0 L 03/29/24 12:07: POC Glucose 130 H I & O for Labs for Last 24 Hours: Intake & Output 03/26/24 03/27/24 03/28/24 03/29/24 23:59 23:59 23:59 23:59 Intake Total 996 / 1396 2570 / 2570 Output Total 1300 / 1300 Balance 996 / 1396 1270 / 1270 Weight 115.847 kg 115.7 kg 123.559 kg Microbiology Reports for the Last 24 Hours: Microbiology 03/27/24 17:20 Blood Blood Culture - Preliminary NO GROWTH AFTER 24 HOURS 03/27/24 17:20 Blood Blood Culture - Preliminary NO GROWTH AFTER 24 HOURS 03/28/24 07:30 Foot,Left - Drainage Gram Stain - Final Constitutional: Present no acute distress, obese, chronically ill appearing and cooperative Head: Present atraumatic and normocephalic ENT: Present normal exam Neck: Present normal inspection Respiratory: Present normal respiratory effort; Absent rhonchi, wheezes or crackles Cardiac: Present Reg Rate and Rhythm GI: Present soft and normal bowel sounds; Absent distention or tenderness Comments:: Bandaging on left gluteus Extremities: Present normal inspection and full ROM Comment:: Right shqyk-ebz-sjtm amputation; left foot and Stewart wrap with TOÑO drain in place draining bloody fluid. Forefoot absent Skin: Present intact, erythema (Mild, left anterior burrell), dry (Flaky skin on left lower extremity) and pallor Neuro: Present Grossly Intact, alert, awake, oriented x 3 and moves all extremities Comment:: Absent sensation in left foot Assessment and Plan *Assessment and plan (1) Cellulitis of left leg: Status: Acute Category: Medical Code(s): L03.116 - Cellulitis of left lower limb (2) Osteomyelitis: Status: Acute Qualifiers: Laterality: left Osteomyelitis location: foot Osteomyelitis type: subacute Qualified Code(s): M86.272 - Subacute osteomyelitis, left ankle and foot Category: Medical Code(s): M86.9 - Osteomyelitis, unspecified (3) S/P transmetatarsal amputation of foot: Status: Acute Qualifiers: Laterality: left Qualified Code(s): Z89.432 - Acquired absence of left foot Category: Surgical Code(s): Z89.439 - Acquired absence of unspecified foot (4) Left buttock abscess: Problem Comment: Left medial buttock/perianal Status: Acute Category: Medical Code(s): L02.31 - Cutaneous abscess of buttock (5) Chronic wound: Status: Acute Category: Medical Code(s): T14.8XXA - Other injury of unspecified body region, initial encounter (6) PAD (peripheral artery disease): Status: Acute Category: Medical Code(s): I73.9 - Peripheral vascular disease, unspecified (7) Diabetes: Status: Acute Qualifiers: Diabetes mellitus complication detail: with peripheral angiopathy without gangrene Diabetes mellitus complication status: with circulatory complication Diabetes mellitus jail insulin use: with middle or intermediate school principal use Diabetes mellitus type: type 2 Qualified Code(s): E11.51 - Type 2 diabetes mellitus with diabetic peripheral angiopathy without gangrene; Z79.4 - middle or intermediate school principal (current) use of insulin Category: Medical Code(s): E11.9 - Type 2 diabetes mellitus without complications (8) Functional paraparesis: Status: Acute Category: Medical Code(s): F44.4 - Conversion disorder with motor symptom or deficit (9) Diabetic foot infection: Status: Acute Category: Medical Code(s): E11.628 - Type 2 diabetes mellitus with other skin complications; L08.9 - Local infection of the skin and subcutaneous tissue, unspecified (10) Seizure disorder: Status: Chronic Category: Medical Code(s): G40.909 - Epilepsy, unspecified, not intractable, without status epilepticus (11) HTN (hypertension): Status: Chronic Qualifiers: Hypertension type: primary hypertension Qualified Code(s): I10 - Essential (primary) hypertension Category: Medical Code(s): I10 - Essential (primary) hypertension (12) Self-care deficit: Status: Acute Category: Medical Code(s): Z78.9 - Other specified health status (13) Obesity (BMI 30-39.9): Status: Chronic Category: Medical Code(s): E66.9 - Obesity, unspecified (14) Lumbar spinal stenosis: Status: Acute Qualifiers: Neurogenic claudication status: unspecified Qualified Code(s): M48.061 - Spinal stenosis, lumbar region without neurogenic claudication Category: Medical Code(s): M48.061 - Spinal stenosis, lumbar region without neurogenic claudication Plan 69 year old male presented to the ED for c/o LLE redness. Admitted to this tube amputation of 3 toes. Admitted last month to [facility] for revision of wound and concern for infection. Podiatry consulted and assisting with care. Concern for worsening infection and foot. Taken for surgery on 03/28. Status post left foot transmetatarsal amputation with irrigation and wide excisional debridement. Postop day 1. Also postop day 1 for I&D of left gluteal abscess. Surgery and podiatry continue to assist with care. Continues to require patient management. Awaiting culture results for definitive antibiotic regimen. Problems addressed as follows: CELLULITIS Diabetic foot infection Metatarsal osteomyelitis gluteal abscess: dressing changes daily -Status post transmetatarsal amputation on 03/28. Still having pain. Continue oxycodone 5 mg every 4 hours as needed. Monitor for toxicity. Initiate gabapentin 100 mg 3 times a day for neuropathic component. White cell count remains normal at 4.7. Inflammatory markers elevated with CRP of 38, ESR 126. Repeat CBC, CMP, magnesium, ESR and CRP ordered for the morning. - Continue antibiotics with meropenem and vancomycin IV. - Blood cultures obtained and pending. -- Discussed case with podiatry and surgery, reviewed their notes. Recommend continuing IV vancomycin and meropenem based on previous cultures. This will complicate patient's discharge plan. He is adamant about going home. Will need PICC line placed prior to discharge. Unsure about his ability to comply with frequent IV dosing. Extensive discussion about SNF placement, patient refuses skilled care. Has been in numerous facilities in the past and has no interest in going there again. Strong concern that he is high risk for readmission given difficulty and follow-up adherence and medication regimen administration/compliance -Dressing changes daily, float/offload left heel on pillow. Nonweightbearing to left lower extremity with wheelchair. Specimens:: Pending Cultures: Left 1-2nd metatarsals Left 3-5th metatarsals Path: Left distal foot/toes Left 2nd metatarsal Left 3rd metatarsal bone proximal margin DM -SSI insulin, FSGS ACHS -Glucose this morning 80 -A1c 6.3 last admission, well-controlled. continue long-acting insulin glargine at decreased dose of 30 units nightly. SEIZURE DISORDER PVD HTN HLD -Continue home medications aspirin 81 mg, Plavix 75 mg daily, atorvastatin 40 mg, finasteride 5mg, lamotrigine 150 mg. Continue metoprolol 25 mg daily, will hold losartan -Recent stenting of left lower extremity, awaiting records from [facility] to review BPH Incontinence - continue finasteride and tamsulosin 0.8mg QHS - indwelling catheter due to breakdown on sacrum and incontinence OBESITY -complicates all aspects of care FULL CODE DIABETIC DIET PLOV
[2024-03-29] MEDS: 0.9 % SODIUM CHLORIDE 1000ML 1,000 ML 50 ML IV (13:49)
[2024-03-29] MEDS: GABAPENTIN 100MG CAPSULE 100 MG PO ×2 (13:49→21:18)
[2024-03-29] MEDS: BUSPIRONE HCL 5 MG PO ×2 (13:49→21:17)
[2024-03-29] MEDS: ACETAMINOPHEN 325MG TAB 650 MG PO (13:50)
[2024-03-29] MEDS: PHA TO NURSING INSTRUCTION 1 EACH NOTAPPLIC (13:50)
[2024-03-29 14:49] LABS: Vancomycin,Trough 25.5 ug/mL (5.0-10.0)
[2024-03-29] MEDS: BACLOFEN 10MG TABLET 10 MG PO (15:32)
--- NOTE | 2024-03-29 15:51 | P.CONPHA_ITS ---
Pharmacy Consult Date: 03/29/24 Time: 15:51 Referring provider: DR. WINCHESTER Reason for Consult:: VANCOMYCIN TROUGH LEVEL AND DOSE CHANGE Allergies Allergy/AdvReac Type Severity Reaction Status Date / Time hydrocodone [From LORTAB] Allergy Unknown NA-NAUSEA/V Verified 06/04/23 16:47 OMITING levetiracetam [From Keppra] Allergy Verified 03/03/24 23:56 tramadol AdvReac Unknown Verified 06/04/23 16:47 allergy reaction Home Medications Medication Instructions Recorded Confirmed Type aspirin 81 mg tablet,delayed 81 mg PO DAILY 04/20/23 03/27/24 History release buspirone 5 mg tablet 5 mg PO TID 04/20/23 03/27/24 History docusate sodium 250 mg capsule 250 mg PO BID 04/20/23 03/27/24 History finasteride 5 mg tablet 5 mg PO DAILY PROSTATE 04/20/23 03/27/24 History furosemide 40 mg tablet 40 mg PO DAILY Fluid 04/20/23 03/27/24 History lamotrigine 100 mg tablet 100 mg PO BID 04/20/23 03/27/24 History losartan 50 mg tablet 50 mg PO DAILY 04/20/23 03/27/24 History lamotrigine 150 mg tablet 150 mg PO HS Seizures 04/21/23 03/27/24 History insulin glargine 100 unit/mL (3 42 unit SQ HS 06/04/23 03/27/24 History mL) subcutaneous pen (Lantus Solostar U-100 Insulin) tamsulosin 0.4 mg capsule 0.8 mg PO HS 06/04/23 03/27/24 History clopidogrel 75 mg tablet (Plavix) 75 mg PO DAILY #30 tabs 06/08/23 03/28/24 Rx metoprolol succinate 25 mg 25 mg PO DAILY #30 tabs 06/08/23 03/28/24 Rx tablet,extended release 24 hr atorvastatin 40 mg tablet 40 mg PO DAILY 03/03/24 03/27/24 History baclofen 10 mg tablet 10 mg PO BIDP PRN Muscle Spasm 03/03/24 03/28/24 History ferrous sulfate 325 mg (65 mg 325 mg PO DAILY 03/03/24 03/27/24 History iron) tablet pantoprazole 40 mg tablet,delayed 40 mg PO DAILY 03/03/24 03/27/24 History release metoclopramide HCl 5 mg tablet 5 mg PO BID 03/27/24 03/27/24 History New Prescriptions to Start Prescriptions: Height: 1.83 m Weight: 123.559 kg Laboratory Results:: Laboratory Results - last 24 hr 03/28/24 16:38: POC Glucose 92 03/28/24 18:01: Urine Color Yellow, Urine Appearance Clear, Urine pH 6.0, Ur Specific [place] 1.010, Urine Protein Negative, Urine Glucose (UA) Negative, Urine Ketones Negative, Urine Blood Negative, Urine Nitrate Negative, Urine Bilirubin Negative, Urine Urobilinogen 0.2, Ur Leukocyte Esterase Negative, Urine RBC None, Urine WBC Occasional, Ur Squamous Epith Cells Occasional, Urine Bacteria None 03/28/24 19:57: POC Glucose 121 H 03/29/24 05:42: POC Glucose 90 03/29/24 06:04: WBC 4.7 L, RBC 2.83 L, Hgb 7.9 L, Hct 24.0 L, MCV 84.8, MCH 27.8, MCHC 32.8, RDW 17.7 H, Plt Count 90 L, MPV 9.1, Neut % (Auto) 67.7, Lymph % (Auto) 23.4, [place] % (Auto) 8.0, Eos % (Auto) 0.6, Baso % (Auto) 0.2, Neut # (Auto) 3.2, Lymph # (Auto) 1.1, [place] # (Auto) 0.4, Eos # (Auto) 0.0, Baso # (Auto) 0.0, ESR 126 H, Sodium 138, Potassium 3.7, Chloride 111 H, Carbon Dioxide 22, Anion Gap 8.7, BUN 15, Creatinine 0.70, Estimated Creat Clear 120, Estimated GFR 111, Est GFR ( Amer) 135, Glucose 79 D, Calcium 8.2 L, Magnesium 1.6, Total Bilirubin 0.3, AST 27 D, ALT 23, Alkaline Phosphatase 83, C-Reactive Protein 38.7 H, Total Protein 5.6 L, Albumin 2.8 L, Globulin 2.8, Albumin/Globulin Ratio 1.0 L 03/29/24 12:07: POC Glucose 130 H 03/29/24 14:10: Vancomycin Trough 25.5 H Medical History: Medical History (Updated 03/29/24 @ 08:49 by Juni Bowen MD) Seizure CAD in [place] artery Acute febrile illness Atrial flutter Bilateral cellulitis of lower leg Cellulitis Diabetes mellitus Dystrophia unguium Fatigue Fever Infestation by fly larvae Lymphedema of both lower extremities Malaise Obesity with body mass index (BMI) of 30.0 to 39.9 Peripheral vascular disease Renal insufficiency Spinal stenosis of cervical region Spinal stenosis of lumbar region Systemic inflammatory response syndrome (SIRS) Ulcers of both lower extremities Uncontrolled diabetes mellitus History of left heart catheterization (LHC) Assessment and Plan Assessment and plan all Dx Assessment and Plan for all problems:: BASED ON PATIENT FACTORS AND VANCOMYCIN TROUGH LEVEL OF 25.5, RECOMMEND DECREASING DOSE TO 2,000MG AND CHANGING DOSE INTERVAL TO EVERY 18 HOURS. PHARMACY WILL CONTINUE TO MONITOR AND WILL ADJUST DOSE APPROPRIATE. -NADIA DIAZ, MALLIKAD
[2024-03-29 16:58] LABS: POC Glucose,Bedside 115 (70-110)
--- NOTE | 2024-03-29 17:13 | PC.NURSE ---
dressing changed on citlalli anal area. pt c/o pain and gave oxycodone per NOV. changed linens and assisted pt to the side of bed x2 assist. pt is now sitting up in bed eating, with left foot elevated on pillow. IV NS running at 50 mls/hr. call light within reach. no further requests at this time.
--- NOTE | 2024-03-29 20:23 | PC.NURSE ---
Pt drained emptied at this time, 50 mL
[2024-03-29] MEDS: INSULIN GLARGINE 100 UNITS/ML 3ML FLEXPEN 30 UNIT SQ (21:18)
[2024-03-29] MEDS: PAT OWN MED ***TAMSULOSIN 0.4MG 0.8 MG PO (21:19)
[2024-03-29] MEDS: PAT OWN MED ***LAMOTRIGINE 150 MG 1 EACH PO (21:21)
[2024-03-29 21:42] LABS: POC Glucose,Bedside 140 (70-110)
[2024-03-30] VITALS: BP 101/51; PULSE 88; RESP 18; TEMP 36.9; O2SAT 95
[2024-03-30] MEDS: ONDANSETRON 4MG/2ML VIAL 4 MG IV (00:15)
[2024-03-30] MEDS: VANCOMYCIN HCL 2,000 MG in 0.9 % SODIUM CHLORIDE 250 ML 125 MG IV ×2 (01:29→18:13)
--- NOTE | 2024-03-30 01:31 | PC.NURSE ---
Patient wound to left buttock packed with idoform packing strip and redressed with nonadherent pad and metapore tape. Patient did complain of mild pain but tolerated change well. Foam dressing changed to open wound on right buttock.
[2024-03-30 04:00] VITALS: BP 101/51; PULSE 86; RESP 18; TEMP 36.8; O2SAT 96; BMI 37.0
[2024-03-30] MEDS: OXYCODONE 5MG IMMEDIATE RELEASE TABLET 5 MG PO ×2 (05:15→09:31)
--- NOTE | 2024-03-30 05:55 | PC.NURSE ---
Addendum entered by Darby Mendoza RN 03/30/24 06:14: FSBS at 21:00 was 140; at 06:00, FSBS was 108. Original Note: Patient is alert and oriented x4. Patient has rested intermittently throughout the night. Patient's bowel sounds were highly active in all quadrants; patient did not have a bowel movement this shift and stated that his last bowel movement was Wednesday (03/27). Patient has complained of pain throughout the shift; patient has been receiving oxycodone 5 mg per NOV, but states that it does not help at all. Patient states that talking to staff helps alleviate and distracts him from the pain. Patient also complained once of feeling nauseous this shift; he was given Zofran per NOV and reported relief. Patient received his scheduled meds per NOV, as well as new vancomycin dosage and Meropenem. Patient's deep wound on left inner buttock was re-packed and redressed this shift (see prior note). Bleeding was noted during change. Patient's wounds on right buttock are open with redness, no drainage at this time. A new foam dressing was also applied this shift. Patient is on room air and tolerates it well. Lung sounds were clear upon auscultation. Incentive spirometer at bedside. Patient's TOÑO drain of left lower extremity is intact and functioning; it was drained this shift (see prior note). DEBBY wrap is in place on foot. Patient's ambrose is also intact; I myself emptied 275 mL of urine. Patient does not have any further complaints at this time. Patient is resting in bed. Call light within reach. Patient's home meds are contained within the [facility].
[2024-03-30 06:21] LABS: POC Glucose,Bedside 108 (70-110)
--- NOTE | 2024-03-30 06:49 | P.CONS_ITS ---
Documented by User: Amanda Marie, [email or web address] 03/30/24 08:11 History of Present Illness *Admission Date: 03/27/24 *History of present illness: This is a 70-year-old gentleman seen in consultation from the primary service regarding a newly-diagnosed left medial buttock abscess. A CT scan ordered by the podiatry service was completed yesterday. In addition to multiple other findings a 3.9 cm enhancing fluid collection in the left medial gluteal fold was noted. The patient does describe pain/discomfort in this area. Please see HPI forwarded from admission H&P below. This is a 69-year-old male with PMHx of multiple comorbidities including hypertension, hyperlipidemia, recurrent cellulitis of bilateral lower extremities, chronic nonhealing wounds of the bilateral lower extremities, peripheral artery disease s/p right AKA, and multiple nonhealing wounds of the left lower extremity s/p recent 3rd and 4th toes amputation, and discharged home with Home health services who presented emergency department for evaluation of his left foot wound. Recommendation is to undergo amputation given that his prognosis of his left foot is poor however he has refused previously. He is wound care twice a week that sees him and change his dressings. They noticed some drainage from his stitches and caused him to return here for continued evaluation. He has some redness of his lower extremity which is unclear if it is worse than baseline. He otherwise has no other acute complaints. 03/29/24: Podiatry consult Patient resting in bed, eating breakfast. S/P TMA, patient stated he had some throbbing pain last night, the Nurse brought him IV pain medication that seemed to help and he was able to get some rest. [facility] Disclaimer: The information contained in this section may have been updated after the patient was seen, as this information can be updated by other users. Medical History Seizure CAD in [place] artery Acute febrile illness Atrial flutter Bilateral cellulitis of lower leg Cellulitis Diabetes mellitus Dystrophia unguium Fatigue Fever Infestation by fly larvae Lymphedema of both lower extremities Malaise Obesity with body mass index (BMI) of 30.0 to 39.9 Peripheral vascular disease Renal insufficiency Spinal stenosis of cervical region Spinal stenosis of lumbar region Systemic inflammatory response syndrome (SIRS) Ulcers of both lower extremities Uncontrolled diabetes mellitus History of left heart catheterization (LHC) Surgical History H/O Spinal surgery Family History Mother Breast cancer Family history of myocardial infarction Social History (Updated 03/27/24 @ 22:53 by Jailyn Meyers RN) Smoking Status: Never smoker alcohol intake: never substance use type: marijuana current occupational status: retired and disabled Travel in the last 8 weeks: None household members: family caffeine: No Meds Home Medications and Allergies Home Medications Medication Instructions Recorded Confirmed Type aspirin 81 mg tablet,delayed 81 mg PO DAILY 04/20/23 03/27/24 History release buspirone 5 mg tablet 5 mg PO TID 04/20/23 03/27/24 History docusate sodium 250 mg capsule 250 mg PO BID 04/20/23 03/27/24 History finasteride 5 mg tablet 5 mg PO DAILY PROSTATE 04/20/23 03/27/24 History furosemide 40 mg tablet 40 mg PO DAILY Fluid 04/20/23 03/27/24 History lamotrigine 100 mg tablet 100 mg PO BID 04/20/23 03/27/24 History losartan 50 mg tablet 50 mg PO DAILY 04/20/23 03/27/24 History lamotrigine 150 mg tablet 150 mg PO HS Seizures 04/21/23 03/27/24 History insulin glargine 100 unit/mL (3 42 unit SQ HS 06/04/23 03/27/24 History mL) subcutaneous pen (Lantus Solostar U-100 Insulin) tamsulosin 0.4 mg capsule 0.8 mg PO HS 06/04/23 03/27/24 History clopidogrel 75 mg tablet (Plavix) 75 mg PO DAILY #30 tabs 06/08/23 03/28/24 Rx metoprolol succinate 25 mg 25 mg PO DAILY #30 tabs 06/08/23 03/28/24 Rx tablet,extended release 24 hr atorvastatin 40 mg tablet 40 mg PO DAILY 03/03/24 03/27/24 History baclofen 10 mg tablet 10 mg PO BIDP PRN Muscle Spasm 03/03/24 03/28/24 History ferrous sulfate 325 mg (65 mg 325 mg PO DAILY 03/03/24 03/27/24 History iron) tablet pantoprazole 40 mg tablet,delayed 40 mg PO DAILY 03/03/24 03/27/24 History release metoclopramide HCl 5 mg tablet 5 mg PO BID 03/27/24 03/27/24 History New Prescriptions to Start Prescriptions: Allergies Allergy/AdvReac Type Severity Reaction Status Date / Time hydrocodone [From LORTAB] Allergy Unknown NA-NAUSEA/V Verified 06/04/23 16:47 OMITING levetiracetam [From Keppra] Allergy Verified 03/03/24 23:56 tramadol AdvReac Unknown Verified 06/04/23 16:47 allergy reaction Exam (Inpt) Vital signs and Labs for Last 24 Hours: Temp Pulse Resp BP Pulse Ox O2 Del Method 98.2 F 86 18 101/51 L 96 Room Air 03/30/24 04:00 03/30/24 04:00 03/30/24 04:00 03/30/24 04:00 03/30/24 04:00 03/30/24 06:47 Laboratory Results - last 24 hr 03/29/24 06:04: ESR 126 H 03/29/24 12:07: POC Glucose 130 H 03/29/24 14:10: Vancomycin Trough 25.5 H 03/29/24 16:48: POC Glucose 115 H 03/29/24 21:16: POC Glucose 140 H 03/30/24 06:12: POC Glucose 108 I & O for Labs for Last 24 Hours: Intake & Output 03/27/24 03/28/24 03/29/24 03/30/24 23:59 23:59 23:59 23:59 Intake Total 996 / 996 3630 / 3630 649 / 649 Output Total 1650 / 1650 575 / 575 Balance 996 / 996 1979 / 1979 / 74 Weight 255 lb 6.4 oz 255 lb 1.197 oz 272 lb 6.4 oz 273 lb 6 oz Microbiology Reports for the Last 24 Hours: Microbiology 03/27/24 17:20 Blood Blood Culture - Preliminary NO GROWTH AFTER 48 HOURS 03/27/24 17:20 Blood Blood Culture - Preliminary NO GROWTH AFTER 48 HOURS Constitutional: Present no acute distress, obese and cooperative Head: Present normocephalic Eye: Present as per HPI Neck: Present normal inspection and trachea midline Respiratory: Present normal respiratory effort and able to speak in complete sentences Cardiac: Present posterior tibial pulses present and pedal pulses present Comment:: 1+ pedal edema, palpable DP/PT pulses to Left foot, Right AKA noted. Has recent LLE stent. GI: Present soft Comments:: deferred Rectal (male): Present deferred (male): Present deferred Extremities: Present normal capillary refill and edema (2+ Left pedal edema, LLE cellulitis, Ulcer to L Lower leg cultured.); Absent calf tenderness Comment:: S/P Left Transmetatarsal amputation, TOÑO drain and sutures intact. Bloody drainage expressed from the site and approx. 10cc of bloody drainage in the TOÑO bulb. Improvement noted to the left lower leg and foot cellulitis. Skin: Present intact, erythema (improving), warm and wounds (S/P Left TMA, left lower leg and left heel. ) Neuro: Present Motor Function Intact, Grossly Intact, oriented x 3, tone normal and moves all extremities Comment:: Hx of neuropathy Ankle: left: swelling (LLE edema, erythema improving ), left: tenderness, left: wound (s/p left TMA, ulcer to left heel) and left: decreased ROM (Right AKA noted) Feet/Toes: left: erythema, left: swelling (S/P L TMA), left: tenderness (amp site) and left: wound (left TMA, left heel ulcer) and bilateral: amputation (L TMA, Right AKA ) and bilateral: decreased ROM Inspection: Present foot deformity deformity: Present hammer toes, infection (cellulitis Left lower leg and foot ) and other (Right AKA, s/p left TMA) Pulses: L dorsalis pedis pulse: normal, R dorsalis pedis pulse: normal, L posterior tibial pulse: normal and R posterior tibial pulse: normal CFT: normal: CFT Results Labs 03/30/24 06:23 03/30/24 06:23 Labs: Abnormal lab results 03/29/24 03/29/24 03/29/24 Range/Units 06:04 12:07 14:10 ESR 126 H (0-20) mm/hr POC Glucose 130 H (70-110) Vancomycin Trough 25.5 H (5.0-10.0) ug/mL 03/29/24 03/29/24 Range/Units 16:48 21:16 ESR (0-20) mm/hr POC Glucose 115 H 140 H (70-110) Vancomycin Trough (5.0-10.0) ug/mL H & H 03/27/24 03/28/24 03/29/24 Range/Units 19:37 06:12 06:04 Hgb 8.5 L 8.3 L 7.9 L (14.1-18.0) g/dL Hct 25.7 L 25.1 L 24.0 L (42.0-52.0) % All other labs normal. Assessment and Plan *Assessment and plan (1) S/P transmetatarsal amputation of foot: Status: Acute Qualifiers: Laterality: left Qualified Code(s): Z89.432 - Acquired absence of left foot Category: Surgical Code(s): Z89.439 - Acquired absence of unspecified foot (2) Diabetic ulcer of left heel associated with diabetes mellitus due to underlying condition, limited to breakdown of skin: Status: Acute Category: Medical Code(s): E08.621 - Diabetes mellitus due to underlying condition with foot ulcer; L97.421 - Non-pressure chronic ulcer of left heel and midfoot limited to breakdown of skin (3) Cellulitis of left leg: Status: Acute Category: Medical Code(s): L03.116 - Cellulitis of left lower limb (4) Diabetic foot infection: Status: Acute Category: Medical Code(s): E11.628 - Type 2 diabetes mellitus with other skin complications; L08.9 - Local infection of the skin and subcutaneous tissue, unspecified (5) Osteomyelitis: Status: Acute Qualifiers: Laterality: left Osteomyelitis location: foot Osteomyelitis type: s ubacute Qualified Code(s): M86.272 - Subacute osteomyelitis, left ankle and foot Category: Medical Code(s): M86.9 - Osteomyelitis, unspecified (6) Chronic wound: Status: Acute Category: Medical Code(s): T14.8XXA - Other injury of unspecified body region, initial encounter (7) PAD (peripheral artery disease): Status: Acute Category: Medical Code(s): I73.9 - Peripheral vascular disease, unspecified (8) Diabetes: Status: Acute Qualifiers: Diabetes mellitus complication detail: with peripheral angiopathy without gangrene Diabetes mellitus complication status: with circulatory complication Diabetes mellitus remote computer terminal operator insulin use: with remote computer terminal operator use D iabetes mellitus type: type 2 Qualified Code(s): E11.51 - Type 2 diabetes mellitus with diabetic peripheral angiopathy without gangrene; Z79.4 - exterminator helper (current) use of insulin Category: Medical Code(s): E11.9 - Type 2 diabetes mellitus without complications (9) Functional paraparesis: Status: Acute Category: Medical Code(s): F44.4 - Conversion disorder with motor symptom or deficit (10) Seizure disorder: Status: Chronic Category: Medical Code(s): G40.909 - Epilepsy, unspecified, not intractable, without status epilepticus (11) HTN (hypertension): Status: Chronic Qualifiers: Hypertension type: primary hypertension Qualified Code(s): I10 - Essential (primary) hypertension Category: Medical Code(s): I10 - Essential (primary) hypertension (12) Self-care deficit: Status: Acute Category: Medical Code(s): Z78.9 - Other specified health status (13) Obesity (BMI 30-39.9): Status: Chronic Category: Medical Code(s): E66.9 - Obesity, unspecified (14) Lumbar spinal stenosis: Status: Acute Qualifiers: Neurogenic claudication status: unspecified Qualified Code(s): M48.061 - Spinal stenosis, lumbar region without neurogenic claudication Category: Medical Code(s): M48.061 - Spinal stenosis, lumbar region without neurogenic claudication (15) Left buttock abscess: Problem Comment: Left medial buttock/perianal Status: Acute Category: Medical Code(s): L02.31 - Cutaneous abscess of buttock (16) Right above-knee amputee: Status: Acute Category: Medical Code(s): Z89.611 - Acquired absence of right leg above knee Plan 03/13/24: Surgery Date: 03/28/24: S/p Left foot transmetatarsal amputation, Left foot irrigation and wide excisional debridement POD #2 Plan: Patient is to maintain dressing clean dry and intact. Float/off load left heel on pillow. Continue IV antibiotics: recommend IV Vanco and Meropenem (based on prior cultures-see above). NWB to LLE with wheelchair. Dressing change: a TOÑO drain intact, dorsal medially. The wounds were cleansed. Xeroform, betadine soaked gauze, ABD pad and dry sterile dressing was then applied to the left foot. Diabetic Diet Specimens:: Pending Cultures: Left 1-2nd metatarsals Left 3-5th metatarsals Path: Left distal foot/toes Left 2nd metatarsal Left 3rd metatarsal bone proximal margin Podiatry will follow while inpatient Documented by User: Sherri Faust DPM 03/30/24 08:14 History of Present Illness *History of present illness: This is a 69-year-old male with PMHx of multiple comorbidities including hypertension, hyperlipidemia, recurrent cellulitis of bilateral lower extremities, chronic nonhealing wounds of the bilateral lower extremities, peripheral artery disease s/p right AKA, and multiple nonhealing wounds of the left lower extremity s/p recent 3rd and 4th toes amputation, and discharged home with Home health services who presented emergency department for evaluation of his left foot wound. Recommendation is to undergo amputation given that his prognosis of his left foot is poor however he has refused previously. He is wound care twice a week that sees him and change his dressings. They noticed some drainage from his stitches and caused him to return here for continued evaluation. He has some redness of his lower extremity which is unclear if it is worse than baseline. He otherwise has no other acute complaints. 03/30/24: Podiatry consult f/u Patient resting in bed, eating breakfast. S/P TMA, patient stated he had some throbbing and nerve pain down LLE. PFSH [facility] Medical History Seizure CAD in [place] artery Acute febrile illness Atrial flutter Bilateral cellulitis of lower leg Cellulitis Diabetes mellitus Dystrophia unguium Fatigue Fever Infestation by fly larvae Lymphedema of both lower extremities Malaise Obesity with body mass index (BMI) of 30.0 to 39.9 Peripheral vascular disease Renal insufficiency Spinal stenosis of cervical region Spinal stenosis of lumbar region Systemic inflammatory response syndrome (SIRS) Ulcers of both lower extremities Uncontrolled diabetes mellitus History of left heart catheterization (LHC) Surgical History H/O Spinal surgery Family History Mother Breast cancer Family history of myocardial infarction Social History (Updated 03/27/24 @ 22:53 by Jailyn Meyers RN) Smoking Status: Never smoker alcohol intake: never substance use type: marijuana current occupational status: retired and disabled Travel in the last 8 weeks: None household members: family caffeine: No Meds Home Medications and Allergies Home Medications Medication Instructions Recorded Confirmed Type aspirin 81 mg tablet,delayed 81 mg PO DAILY 04/20/23 03/27/24 History release buspirone 5 mg tablet 5 mg PO TID 04/20/23 03/27/24 History docusate sodium 250 mg capsule 250 mg PO BID 04/20/23 03/27/24 History finasteride 5 mg tablet 5 mg PO DAILY PROSTATE 04/20/23 03/27/24 History furosemide 40 mg tablet 40 mg PO DAILY Fluid 04/20/23 03/27/24 History lamotrigine 100 mg tablet 100 mg PO BID 04/20/23 03/27/24 History losartan 50 mg tablet 50 mg PO DAILY 04/20/23 03/27/24 History lamotrigine 150 mg tablet 150 mg PO HS Seizures 04/21/23 03/27/24 History insulin glargine 100 unit/mL (3 42 unit SQ HS 06/04/23 03/27/24 History mL) subcutaneous pen (Lantus Solostar U-100 Insulin) tamsulosin 0.4 mg capsule 0.8 mg PO HS 06/04/23 03/27/24 History clopidogrel 75 mg tablet (Plavix) 75 mg PO DAILY #30 tabs 06/08/23 03/28/24 Rx metoprolol succinate 25 mg 25 mg PO DAILY #30 tabs 06/08/23 03/28/24 Rx tablet,extended release 24 hr atorvastatin 40 mg tablet 40 mg PO DAILY 03/03/24 03/27/24 History baclofen 10 mg tablet 10 mg PO BIDP PRN Muscle Spasm 03/03/24 03/28/24 History ferrous sulfate 325 mg (65 mg 325 mg PO DAILY 03/03/24 03/27/24 History iron) tablet pantoprazole 40 mg tablet,delayed 40 mg PO DAILY 03/03/24 03/27/24 History release metoclopramide HCl 5 mg tablet 5 mg PO BID 03/27/24 03/27/24 History New Prescriptions to Start Prescriptions: Allergies Allergy/AdvReac Type Severity Reaction Status Date / Time hydrocodone [From LORTAB] Allergy Unknown NA-NAUSEA/V Verified 06/04/23 16:47 OMITING levetiracetam [From Keppra] Allergy Verified 03/03/24 23:56 tramadol AdvReac Unknown Verified 06/04/23 16:47 allergy reaction Results Labs 03/30/24 06:23 03/30/24 06:23 Assessment and Plan *Assessment and plan (1) S/P transmetatarsal amputation of foot: Status: Acute Qualifiers: Laterality: left Qualified Code(s): Z89.432 - Acquired absence of left foot Category: Surgical Code(s): Z89.439 - Acquired absence of unspecified foot (2) Diabetic ulcer of left heel associated with diabetes mellitus due to underlying condition, limited to breakdown of skin: Status: Acute Category: Medical Code(s): E08.621 - Diabetes mellitus due to underlying condition with foot ulcer; L97.421 - Non-pressure chronic ulcer of left heel and midfoot limited to breakdown of skin (3) Cellulitis of left leg: Status: Acute Category: Medical Code(s): L03.116 - Cellulitis of left lower limb (4) Diabetic foot infection: Status: Acute Category: Medical Code(s): E11.628 - Type 2 diabetes mellitus with other skin complications; L08.9 - Local infection of the skin and subcutaneous tissue, unspecified (5) Osteomyelitis: Status: Acute Qualifiers: Laterality: left Osteomyelitis location: foot Osteomyelitis type: s ubacute Qualified Code(s): M86.272 - Subacute osteomyelitis, left ankle and foot Category: Medical Code(s): M86.9 - Osteomyelitis, unspecified (6) Chronic wound: Status: Acute Category: Medical Code(s): T14.8XXA - Other injury of unspecified body region, initial encounter (7) PAD (peripheral artery disease): Status: Acute Category: Medical Code(s): I73.9 - Peripheral vascular disease, unspecified (8) Diabetes: Status: Acute Qualifiers: Diabetes mellitus complication detail: with peripheral angiopathy without gangrene Diabetes mellitus complication status: with circulatory complication Diabetes mellitus usp insulin use: with usp use D iabetes mellitus type: type 2 Qualified Code(s): E11.51 - Type 2 diabetes mellitus with diabetic peripheral angiopathy without gangrene; Z79.4 - exterminator helper (current) use of insulin Category: Medical Code(s): E11.9 - Type 2 diabetes mellitus without complications (9) Functional paraparesis: Status: Acute Category: Medical Code(s): F44.4 - Conversion disorder with motor symptom or deficit (10) Seizure disorder: Status: Chronic Category: Medical Code(s): G40.909 - Epilepsy, unspecified, not intractable, without status epilepticus (11) HTN (hypertension): Status: Chronic Qualifiers: Hypertension type: primary hypertension Qualified Code(s): I10 - Essential (primary) hypertension Category: Medical Code(s): I10 - Essential (primary) hypertension (12) Self-care deficit: Status: Acute Category: Medical Code(s): Z78.9 - Other specified health status (13) Obesity (BMI 30-39.9): Status: Chronic Category: Medical Code(s): E66.9 - Obesity, unspecified (14) Lumbar spinal stenosis: Status: Acute Qualifiers: Neurogenic claudication status: unspecified Qualified Code(s): M48.061 - Spinal stenosis, lumbar region without neurogenic claudication Category: Medical Code(s): M48.061 - Spinal stenosis, lumbar region without neurogenic claudication (15) Left buttock abscess: Problem Comment: Left medial buttock/perianal Status: Acute Category: Medical Code(s): L02.31 - Cutaneous abscess of buttock (16) Right above-knee amputee: Status: Acute Category: Medical Code(s): Z89.611 - Acquired absence of right leg above knee Plan Surgery, 03/28/24: S/p Left foot transmetatarsal amputation, Left foot irrigation and wide excisional debridement Intraop Specimens: Pending Cultures: Left 1-2nd metatarsals Left 3-5th metatarsals Path: Left distal foot/toes Left 2nd metatarsal Left 3rd metatarsal bone proximal margin 03/30/24: POD #2 Plan: Pt c/o nerve pain from left hip down. Discussed could be related to positioning and maybe sciatica, nerve impingement. Dressing changed at the bedside by podiatry this a.m. Wound looks stable. TOÑO drain output acceptable. TOÑO drain left intact, likely will keep 1-2 weeks. Patient is to maintain dressing clean dry and intact. Float/off load left heel on pillow. Continue IV antibiotics: recommend IV Vanco and Meropenem (based on prior cultures-see above). NWB to LLE with wheelchair. Dressing change: a TOÑO drain intact, dorsal medially. The wounds were cleansed. Xeroform, betadine soaked gauze, ABD pad and dry sterile dressing was then applied to the left foot. Will plan for nursing dressing changes daily over weekend. No more plans for Podiatry surgery. Pt still does not want SNF. High risk for re-admission, re-infection due to hx of multiple hospital admissions with chronic LLE cellulitis and OM over past few years. He lives alone and is unable to drive. Plan to re-evaluate 04/03/24 if patient is still here. If he does get d/c over weekend, will need f/u arranged for Podiatry outpatient in 1-2 weeks. And will need [facility] twice weekly dressing changes: betadine soaked gauze, dry gauze, shayne/kerlix, jeffery. D/c based on hospitalist recs and intraop specimen results.
[2024-03-30 07:01] LABS: Basophils % 0.5 % (0.1-2.0); Eosinophils # 0.2 K/mm3 (0.0-0.4); Hemoglobin 7.1 g/dL (14.1-18.0); Lymphocytes # 1.2 K/mm3 (0.7-4.5); Lymphocytes % 23.5 % (10-50); Mean Corpuscular HGB Conc 38.1 g/dL (31.8-35.4); Mean Corpuscular Hemoglobin 31.8 pg (27.0-31.2); Mean Corpuscular Volume 83.5 fl (80-94); Mean Platelet Volume 9.7 fl (7.4-10.4); Monocytes # 0.4 K/mm3 (0.1-1.0); Neutrophils # 3.2 K/mm3 (1.8-7.8); Platelet Count 81 K/mm3 (142-424); Red Blood Count 2.24 M/mm3 (4.60-6.20); Red Cell Distribution Width 17.6 % (11.5-17.5); White Blood Count 4.9 K/mm3 (4.8-10.8)
--- NOTE | 2024-03-30 07:02 | EXP.SURG.PN ---
Subjective Patient reports: no new complaints Exam Data for Last 24 hours Vital signs and Labs for Last 24 Hours: Temp Pulse Resp BP Pulse Ox O2 Del Method 98.2 F 86 18 101/51 L 96 Room Air 03/30/24 04:00 03/30/24 04:00 03/30/24 04:00 03/30/24 04:00 03/30/24 04:00 03/30/24 06:47 Laboratory Results - last 24 hr 03/29/24 06:04: ESR 126 H 03/29/24 12:07: POC Glucose 130 H 03/29/24 14:10: Vancomycin Trough 25.5 H 03/29/24 16:48: POC Glucose 115 H 03/29/24 21:16: POC Glucose 140 H 03/30/24 06:12: POC Glucose 108 I & O for Last 24 hours: Intake & Output 03/27/24 03/28/24 03/29/24 03/30/24 11:59 11:59 11:59 11:59 Intake Total 3516 / 3516 1759 / 1759 Output Total 1300 / 1300 925 / 925 Balance 2216 / 2216 834 / 834 Weight 255 lb 1.197 oz 272 lb 6.4 oz 273 lb 6 oz Microbiology Reports for the Last 24 Hours: Microbiology 03/27/24 17:20 Blood Blood Culture - Preliminary NO GROWTH AFTER 48 HOURS 03/27/24 17:20 Blood Blood Culture - Preliminary NO GROWTH AFTER 48 HOURS Constitutional Constitutional: no acute distress *Routine Respiratory Exam Respiratory: Absent respiratory distress *Routine Cardiovascular Exam Cardiovascular: Absent tachycardia *Routine Skin Exam Comments: Dressings intact. No spreading cellulitis. Progress Note: A&P Assessment and plan (1) Left buttock abscess: Problem details: Left medial buttock/perianal Status: Acute Assessment and plan: Continue dressing changes
[2024-03-30 07:11] LABS: Hematocrit 18.7 % (42.0-52.0)
[2024-03-30] MEDS: MEROPENEM 1 GM in 0.9 % SODIUM CHLORIDE 100 ML IV (07:50)
--- NOTE | 2024-03-30 07:54 | P.PN_ITS ---
Subjective *Date: 03/30/24 *Time: 17:58 Interval history: Patient continues to complain of pain in foot. Continues to be adamant about going home. Discussed the need for IV antibiotics. He has failed oral therapy twice. Patient states he has help and thinks he can do it at home. Have expressed significant concern to patient that going home only increases his risk for infection not getting better and wound not healing. He states he understands this but he will not go back to a correction. Discussed hospice again this morning if his infection comes back as there is nothing else for us to do. Further infection of wound would necessitate BKA which he has made very clear he will not go through with. Stable on room air. Tolerating p.o. intake. No nausea or vomiting. Medical Exam Vital signs and Labs for Last 24 Hours: Vital Signs Temp Pulse Resp BP Pulse Ox O2 Del Method 03/30/24 06:47 Room Air 03/30/24 05:00 Room Air 03/30/24 04:00 98.2 F 86 18 101/51 L 96 Room Air 03/30/24 03:00 Room Air 03/30/24 01:00 Room Air 03/30/24 00:00 98.4 F 88 18 101/51 L 95 Room Air 03/29/24 23:00 Room Air 03/29/24 21:00 Room Air 03/29/24 20:00 97.9 F 76 18 100/60 L 96 Room Air 03/29/24 20:00 76 96 Room Air 03/29/24 18:44 Room Air 03/29/24 17:00 Room Air 03/29/24 16:00 98.2 F 83 20 116/63 95 Room Air 03/29/24 15:00 Room Air 03/29/24 13:00 Room Air 03/29/24 11:29 97.8 F 90 18 129/60 92 L Room Air 03/29/24 11:00 Room Air 03/29/24 09:00 Room Air 03/29/24 08:00 Room Air 03/29/24 08:00 98.3 F 99 H 18 127/74 92 L Room Air Intake and Output 03/29/24 03/29/24 03/30/24 15:59 23:59 07:59 Intake Total 1070 / 4279 580 / 4279 649 / 649 Output Total 350 / 1925 575 / 575 Balance 1070 / 2354 230 / 2354 74 / 74 Intake: Intake, Oral Amount 1020 / 2100 580 / 2100 100 / 100 Intake, Total IV Amount 50 / 1679 549 / 549 0.9 % Sodium Chloride 1000ML 1, 384 / 384 000 ml @ 50 mls/hr IV .Q20H [facility] Rx#:[id number] Magnesium Sulfate in Water 2 gm 50 / 50 In 50 ml @ 50 mls/hr IV ONCE ONE Rx#:[id number] Meropenem 1 gm In 0.9 % Sodium 100 / 100 Chloride 100 ml @ 100 mls/hr IV Q8H [facility] Rx#:[id number] Vancomycin HCl 2,250 mg In 0.9 65 / 65 % Sodium Chloride 250 ml @ 125 mls/hr IV Q12H [facility] Rx#:[id number] Output: Output, Urine Amount 350 / 350 300 / 300 Output, Urine Amount (Catheter) 275 / 275 [place] 275 / 275 Other: Weight 123.559 kg 124.001 kg Patient Weight 03/30/24 23:59 Weight 124.001 kg Laboratory Results - last 24 hr 03/29/24 12:07: POC Glucose 130 H 03/29/24 14:10: Vancomycin Trough 25.5 H 03/29/24 16:48: POC Glucose 115 H 03/29/24 21:16: POC Glucose 140 H 03/30/24 06:12: POC Glucose 108 03/30/24 06:23: WBC 4.9, RBC 2.24 L, Hgb 7.1 L, Hct 18.7 L*, MCV 83.5, MCH 31.8 H, MCHC 38.1 H, RDW 17.6 H, Plt Count 81 L, MPV 9.7, Neut % (Auto) 64.0, Lymph % (Auto) 23.5, Geary % (Auto) 9.0, Eos % (Auto) 3.0, Baso % (Auto) 0.5, Neut # (Auto) 3.2, Lymph # (Auto) 1.2, Geary # (Auto) 0.4, Eos # (Auto) 0.2, Baso # (Auto) 0.0 I & O for Labs for Last 24 Hours: Intake & Output 03/27/24 03/28/24 03/29/24 03/30/24 23:59 23:59 23:59 23:59 Intake Total 996 / 1396 3630 / 4279 649 / 649 Output Total 1650 / 1925 575 / 575 Balance 996 / 1396 1979 / 2353 74 / 74 Weight 115.847 kg 115.7 kg 123.559 kg 124.001 kg Microbiology Reports for the Last 24 Hours: Microbiology 03/27/24 17:20 Blood Blood Culture - Preliminary NO GROWTH AFTER 48 HOURS 03/27/24 17:20 Blood Blood Culture - Preliminary NO GROWTH AFTER 48 HOURS Constitutional: Present no acute distress, obese, chronically ill appearing and cooperative Head: Present atraumatic and normocephalic ENT: Present normal exam Neck: Present normal inspection Respiratory: Present normal respiratory effort; Absent rhonchi, wheezes or crackles Cardiac: Present Reg Rate and Rhythm GI: Present soft and normal bowel sounds; Absent distention or tenderness Comments:: Bandaging on left gluteus Extremities: Present normal inspection and full ROM Comment:: Right [id number] amputation; left foot and Stewart wrap with TOÑO drain in place draining bloody fluid. Forefoot absent Skin: Present intact, erythema (Mild, left anterior burrell), dry (Flaky skin on left lower extremity) and pallor Neuro: Present Grossly Intact, alert, awake, oriented x 3 and moves all extremities Comment:: Absent sensation in left foot Assessment and Plan *Assessment and plan (1) Cellulitis of left leg: Status: Acute Category: Medical Code(s): L03.116 - Cellulitis of left lower limb (2) Diabetic foot infection: Status: Acute Category: Medical Code(s): E11.628 - Type 2 diabetes mellitus with other skin complications; L08.9 - Local infection of the skin and subcutaneous tissue, unspecified (3) Osteomyelitis: Status: Acute Qualifiers: Osteomyelitis type: subacute Osteomyelitis location: foot Laterality: left Qualified Code(s): M86.272 - Subacute osteomyelitis, left ankle and foot Category: Medical Code(s): M86.9 - Osteomyelitis, unspecified (4) S/P transmetatarsal amputation of foot: Status: Acute Qualifiers: Laterality: left Qualified Code(s): Z89.432 - Acquired absence of left foot Category: Surgical Code(s): Z89.439 - Acquired absence of unspecified foot (5) Diabetic ulcer of left heel associated with diabetes mellitus due to underlying condition, limited to breakdown of skin: Status: Acute Category: Medical Code(s): E08.621 - Diabetes mellitus due to underlying condition with foot ulcer; L97.421 - Non-pressure chronic ulcer of left heel and midfoot limited to breakdown of skin (6) Chronic wound: Status: Acute Category: Medical Code(s): T14.8XXA - Other injury of unspecified body region, initial encounter (7) PAD (peripheral artery disease): Status: Acute Category: Medical Code(s): I73.9 - Peripheral vascular disease, unspecified (8) Diabetes: Status: Acute Qualifiers: Diabetes mellitus type: type 2 Diabetes 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: with aircraft charter dispatcher use Diabetes mellitus complication status: with circulatory complication Diabetes mellitus complication detail: with peripheral angiopathy without gangrene Qualified Code(s): E11.51 - Type 2 diabetes mellitus with diabetic peripheral angiopathy without gangrene; Z79.4 - care home (current) use of insulin Category: Medical Code(s): E11.9 - Type 2 diabetes mellitus without complications (9) Functional paraparesis: Status: Acute Category: Medical Code(s): F44.4 - Conversion disorder with motor symptom or deficit (10) Seizure disorder: Status: Chronic Category: Medical Code(s): G40.909 - Epilepsy, unspecified, not intractable, without status epilepticus (11) HTN (hypertension): Status: Chronic Qualifiers: Hypertension type: primary hypertension Qualified Code(s): I10 - Essential (primary) hypertension Category: Medical Code(s): I10 - Essential (primary) hypertension (12) Self-care deficit: Status: Acute Category: Medical Code(s): Z78.9 - Other specified health status (13) Obesity (BMI 30-39.9): Status: Chronic Category: Medical Code(s): E66.9 - Obesity, unspecified (14) Lumbar spinal stenosis: Status: Acute Qualifiers: Neurogenic claudication status: unspecified Qualified Code(s): M48.061 - Spinal stenosis, lumbar region without neurogenic claudication Category: Medical Code(s): M48.061 - Spinal stenosis, lumbar region without neurogenic claudication (15) Left buttock abscess: Problem Comment: Left medial buttock/perianal Status: Acute Category: Medical Code(s): L02.31 - Cutaneous abscess of buttock (16) Right above-knee amputee: Status: Acute Category: Medical Code(s): Z89.611 - Acquired absence of right leg above knee Plan 69 year old male presented to the ED for c/o LLE redness. Admitted to this tube amputation of 3 toes. Admitted last month to [facility] for revision of wound and concern for infection. Podiatry consulted and assisting with care. Concern for worsening infection and foot. Taken for surgery on 03/28. Status post left foot transmetatarsal amputation with irrigation and wide excisional debridement. Postop day 2. Also postop day 2 for I&D of left gluteal abscess. Surgery and podiatry continue to assist with care. Continues to require patient management. Transition cultures to vancomycin and cefepime based on sensitivities. Problems addressed as follows: CELLULITIS Diabetic foot infection Metatarsal osteomyelitis gluteal abscess: dressing changes daily -Status post transmetatarsal amputation on 03/28. Still having pain. Continue oxycodone 5 mg every 4 hours as needed. Monitor for toxicity. Initiate gabapentin 100 mg 3 times a day for neuropathic component. White cell count remains normal at 4.9. CRP and ESR remain elevated at 33 and 117 respectively. Repeat CBC, CMP, magnesium, CRP, and procalcitonin ordered for the morning. -Having breakthrough pain. Increase oxycodone to 10 mg every 4-6 hours as needed for severe pain. Increase gabapentin to 200 mg 3 times a day for neuropathy component - Continue antibiotics with meropenem and vancomycin IV. - Blood cultures obtained and pending. -- Discussed case with podiatry and surgery, reviewed their notes. Recommend continuing IV vancomycin and meropenem based on previous cultures; will transition to cefepime however due to ease of dosing and every 12 hours. Wound care as follows: Dressing changes daily, float/offload left heel on pillow. Nonweightbearing to left lower extremity with wheelchair. Specimens:: Pending Cultures: Left 1-2nd metatarsals Left 3-5th metatarsals Path: Left distal foot/toes Left 2nd metatarsal Left 3rd metatarsal bone proximal margin PICC line ordered for today. Plan to discharge home with home health. Patient again refuses placement for SNF. Anemia: Hemoglobin 7.1 this morning. Hemoglobin was 7.9 yesterday. Chronically anemic however seeing down tic in hemoglobin due to bleeding from surgical wound. Repeat H&H this evening, transfusion threshold hemoglobin less than 7. DM -SSI insulin, FSGS ACHS -Glucose this morning 108 -A1c 6.3 last admission, well-controlled. continue long-acting insulin glargine at decreased dose of 30 units nightly. SEIZURE DISORDER PVD HTN HLD -Continue home medications aspirin 81 mg, Plavix 75 mg daily, atorvastatin 40 mg, finasteride 5mg, lamotrigine 150 mg. Continue metoprolol 25 mg daily, will hold losartan -Recent stenting of left lower extremity, awaiting records from [facility] to review BPH Incontinence - continue finasteride and tamsulosin 0.8mg QHS - indwelling catheter due to breakdown on sacrum and incontinence OBESITY -complicates all aspects of care FULL CODE DIABETIC DIET Holding on anticoagulation due to thrombocytopenia
[2024-03-30 08:00] VITALS: BP 115/57; PULSE 86; RESP 18; TEMP 36.8; O2SAT 98
[2024-03-30 08:01] LABS: Alanine Aminotransferase 19 U/L (12-78); Albumin Level 2.8 g/dl (3.5-5.0); Alkaline Phosphatase 84 U/L (38-126); Anion Gap 8.5 mEq/L (5-15); Aspartate Amino Transferase 23 U/L (17-59); Blood Urea Nitrogen 12 mg/dl (9-20); Calcium 7.9 mg/dl (8.4-10.2); Carbon Dioxide 21 mmol/L (22.0-30.0); Chloride 111 mmol/L (98-107); Creatinine Clearance Estimated 121 mL/min (50-200); Estimated Glomerular Filt Rate 111 ml/min (>60); GFR (African American) 135 ML/MIN (>60); Globulin 2.7 g/dL (1.3-3.2); Glucose 93 mg/dl (74-100); Potassium 3.5 mmoL/L (3.5-5.1); Sodium 137 mmol/L (136-145); Total Protein,Serum 5.5 g/dl (6.3-8.2)
[2024-03-30] MEDS: PAT OWN MED ***ATORVASTATIN 40MG 40 MG PO (08:03)
[2024-03-30] MEDS: BUSPIRONE HCL 5 MG PO ×3 (08:03→21:09)
[2024-03-30] MEDS: PAT OWN MED ***ASPIRIN EC 81MG 81 MG PO (08:03)
[2024-03-30] MEDS: DOCUSATE SODIUM 250 MG PO ×2 (08:04→21:09)
[2024-03-30] MEDS: CLOPIDOGREL 75MG TAB 75 MG PO (08:04)
[2024-03-30] MEDS: FINASTERIDE 5 MG PO (08:05)
[2024-03-30] MEDS: GABAPENTIN 100MG CAPSULE 100 MG PO (08:06)
[2024-03-30] MEDS: METOCLOPRAMIDE 5 MG PO ×2 (08:06→21:11)
[2024-03-30] MEDS: LAMOTRIGINE 100 MG PO ×2 (08:06→21:11)
[2024-03-30] MEDS: PAT OWN MED ***PANTOPRAZOLE 40MG 40 MG PO (08:07)
[2024-03-30] MEDS: METOPROLOL SUCCINATE XL 25MG TABLET 25 MG PO (08:07)
[2024-03-30 08:10] LABS: Bilirubin,Total 0.1 mg/dl (0.2-1.3)
[2024-03-30] MEDS: BACLOFEN 10MG TABLET 10 MG PO (08:11)
[2024-03-30] MEDS: ACETAMINOPHEN 325MG TAB 650 MG PO (08:11)
[2024-03-30 08:19] LABS: Magnesium 1.9 mg/dl (1.6-2.3)
[2024-03-30 08:24] LABS: C-Reactive Protein 33.8 mg/L (0-4); Erythrocyte Sedimentation Rate 117 mm/hr (0-20)
[2024-03-30] MEDS: HYDROMORPHONE 2MG/ML SYRINGE 1 MG IV ×4 (10:26→23:34)
--- NOTE | 2024-03-30 10:53 | XR_ITS ---
FINAL REPORT CLINICAL HISTORY: Confirm PICC line placement COMPARISON: 03/06/2024 FINDINGS: A portable view of the chest was obtained. Right PICC line tip terminates in the SVC. The heart is mildly enlarged, stable from previous. Blunting of the left costophrenic angle is unchanged. The lungs are clear. There is no pleural effusion or pneumothorax. IMPRESSION: Right PICC line terminates in the SVC Reviewed, Interpreted and Dictated by Guerda Bermudez MD Transcribed by Nakia Mcconnell Authenticated and [facility]
--- NOTE | 2024-03-30 11:04 | HMH.ITSTN ---
spoke to RN, pt does not have PICC line yet. RN to call when xray is needed
[2024-03-30] MEDS: POLYETHYLENE GLYCOL 3350 17 GM PACKET PO (11:30)
[2024-03-30] MEDS: SENNOSIDES 8.6MG/DOCUSATE 50MG TABLET 1 TAB PO (11:30)
[2024-03-30 11:48] LABS: POC Glucose,Bedside 147 (70-110)
[2024-03-30 12:00] VITALS: BP 106/61; PULSE 74; RESP 18; TEMP 36.8; O2SAT 97
[2024-03-30] MEDS: GABAPENTIN 100MG CAPSULE 200 MG PO ×2 (12:18→21:09)
[2024-03-30 14:39] VITALS: BMI 37.0
[2024-03-30 16:00] VITALS: BP 124/75; PULSE 85; RESP 18; TEMP 36.6; O2SAT 97
[2024-03-30 16:40] LABS: POC Glucose,Bedside 123 (70-110)
--- NOTE | 2024-03-30 18:31 | PC.NURSE ---
A&OX4. TOLERATING RA WELL. HAS REMAINED IN BED T/O SHIFT. F/C PRESENT DRAINING DARK YELLOW URINE. PICC LINE PLACED TODAY, PT TOLERATED WELL. PODIATRY WAS IN THIS MORNING TO CHANGE DRESSING ON LEFT FOOT. DRAIN IN PLACE, WITH SEROSANG DRAINAGE PRESET. WILL EMPTY AT END OF SHIFT. DRESSING TO BOTTOM HAS REMAINED CDI TODAY. PT IS TURNING HIMSELF WELL IN BED. BRIEF IN PLACE, HAS HAD NO BM THUS FAR THIS SHIFT. DOES HAVE BREAKDOWN ON BOTTOM, PRESSURE PAD IN PLACE. POWDER ALSO APPLIED TO UNDER GROIN AREA. PT HAS RECEIVED DILAUDID MULTIPLE TIMES THIS SHIFT, AND THIS HAS HELPED HIS LLE AND BOTTOM PAIN. PATIENT DOES REMAIN IN GOOD SPIRITS, HOWEVER DID TEAR UP THIS MORNING TRYING TO DECIDE AND TALK ABOUT HIS FUTURE, AND WHAT HE WOULD LIKE TO DO WHEN LEAVING THE HOSPITAL. HAS HAD VISITORS TODAY WHICH HE LOVED. HAS A GOOD APPETITE AND SUGARS HAVE REMAINED GOOD THIS SHIFT. NO OTHER NEEDS OR C/O NOTED THUS FAR, VSS.
[2024-03-30 18:54] LABS: Hematocrit 23.3 % (42.0-52.0); Hemoglobin 7.7 g/dL (14.1-18.0)
[2024-03-30] MEDS: CEFEPIME HCL 2 GM in 0.9 % SODIUM CHLORIDE 100 ML IV (19:31)
[2024-03-30 20:00] VITALS: BP 127/69; PULSE 95; RESP 18; TEMP 36.9; O2SAT 94
[2024-03-30 20:24] LABS: POC Glucose,Bedside 178 (70-110)
[2024-03-30] MEDS: INSULIN GLARGINE 100 UNITS/ML 3ML FLEXPEN 30 UNIT SQ (21:09)
[2024-03-30] MEDS: PAT OWN MED ***TAMSULOSIN 0.4MG 0.8 MG PO (21:10)
[2024-03-30] MEDS: PAT OWN MED ***LAMOTRIGINE 150 MG 1 EACH PO (21:10)
[2024-03-31] VITALS (16 sets, daily range): BP systolic 119–153; BP diastolic 45–78; PULSE 78–105; RESP 16–20; TEMP 36.8–37.6; O2SAT 92–98; BMI 37.0
--- NOTE | 2024-03-31 01:53 | PC.NURSE ---
Techs at bedside finishing up patient's bed bath at this time. Patient's dressings on bottom were also changed at this time. Deep wound to inner left buttock was packed with 1 full piece of dry gauze, covered with a folded piece of dry gauze, and secured with a tegaderm dressing. Bleeding was noted. Small, open pressure wounds to right buttock were covered with a foam flower dressing. Generalized redness was also noted to patient's perineal area. Patient tolerated dressing change very well.
[2024-03-31] MEDS: 0.9 % SODIUM CHLORIDE 1000ML 1,000 ML 50 ML IV (02:41)
[2024-03-31] MEDS: HYDROMORPHONE 2MG/ML SYRINGE 1 MG IV ×2 (04:02→11:17)
--- NOTE | 2024-03-31 05:28 | PC.NURSE ---
Addendum entered by Darby Mendoza RN 03/31/24 06:27: FSBS at 21:00 was 178, and FSBS at 06:00 was 119. Original Note: Patient is alert and oriented x4. Patient has rested intermittently throughout the night and has been visited occasionally by staff. Patient has been pleasant this shift; patient states that he enjoys having company and talking distracts him from his pain. He has reported pain in his leg and bottom, of which has been treated with Dilautid per NOV. Patient reports that the med has been working very well for his pain. Patient did complain of burning in his scrotum at around 05:00 this shift; no redness or sores were noted upon inspection and barrier cream was applied per request by patient. Patient has not complained of anymore scrotal discomfort at this time. Patient has received his scheduled meds per NOV. He currently has normal saline infusing through his PICC line at 50 mL/hr since 02:41. Home meds remain locked in [facility]. Patient's vital signs remain stable at this time. Patient has had a bowel movement this shift. He has also had a bed bath and the dressings on his buttocks were changed. Dry gauze has been packed per MD request into the deep, open wound on his left inner buttock, secured with a tegaderm dressing, this shift (see prior note). A new foam flower pad dressing was applied to the right buttock (see prior note). Patient's TOÑO drain is intact and functioning. I emptied 275 mL of urine myself from ambrose bag this shift. Patient is resting comfortably in bed at this time. He does not have any further complaints. Call light is within reach.
--- NOTE | 2024-03-31 06:02 | PC.NURSE ---
Dressings on buttocks were replaced due to being soiled by bowel movement at this time. Dry gauze was packed into deep, open wound on inner left buttock and covered with tegaderm dressings. Foam flower pad dressings were also changed and applied to patient's right buttock wounds. Patient reported having some pain during dressing change but tolerated it well. Barrier cream was also applied to scrotum.
[2024-03-31 06:30] LABS: Basophils % 0.4 % (0.1-2.0); Eosinophils # 0.3 K/mm3 (0.0-0.4); Eosinophils % 5.3 % (0.1-12.0); Hematocrit 21.2 % (42.0-52.0); Lymphocytes # 1.6 K/mm3 (0.7-4.5); Lymphocytes % 26.7 % (10-50); Mean Corpuscular HGB Conc 33.1 g/dL (31.8-35.4); Mean Corpuscular Hemoglobin 27.8 pg (27.0-31.2); Mean Corpuscular Volume 83.9 fl (80-94); Mean Platelet Volume 9.3 fl (7.4-10.4); Monocytes # 0.8 K/mm3 (0.1-1.0); Monocytes % 13.6 % (1.7-9.3); Neutrophils # 3.2 K/mm3 (1.8-7.8); Neutrophils % 54.1 % (37.0-80.0); Platelet Count 93 K/mm3 (142-424); Red Blood Count 2.53 M/mm3 (4.60-6.20); Red Cell Distribution Width 17.6 % (11.5-17.5)
[2024-03-31 06:32] LABS: POC Glucose,Bedside 119 (70-110)
--- NOTE | 2024-03-31 07:02 | EXP.SURG.PN ---
Subjective Patient reports: no new complaints Exam Data for Last 24 hours Vital signs and Labs for Last 24 Hours: Temp Pulse Resp BP Pulse Ox O2 Del Method 98.6 F 88 16 126/72 96 Room Air 03/31/24 04:00 03/31/24 04:00 03/31/24 04:00 03/31/24 04:00 03/31/24 04:00 03/31/24 06:45 Laboratory Results - last 24 hr 03/30/24 06:23: WBC 4.9, RBC 2.24 L, Hgb 7.1 L, Hct 18.7 L*, MCV 83.5, MCH 31.8 H, MCHC 38.1 H, RDW 17.6 H, Plt Count 81 L, MPV 9.7, Neut % (Auto) 64.0, Lymph % (Auto) 23.5, [place]tinger % (Auto) 9.0, Eos % (Auto) 3.0, Baso % (Auto) 0.5, Neut # (Auto) 3.2, Lymph # (Auto) 1.2, [place]er # (Auto) 0.4, Eos # (Auto) 0.2, Baso # (Auto) 0.0, ESR 117 H, Sodium 137, Potassium 3.5, Chloride 111 H, Carbon Dioxide 21 L, Anion Gap 8.5, BUN 12, Creatinine 0.70, Estimated Creat Clear 121, Estimated GFR 111, Est GFR ( Amer) 135, Glucose 93, Calcium 7.9 L, Magnesium 1.9 D, Total Bilirubin 0.1 L, AST 23, ALT 19, Alkaline Phosphatase 84, C-Reactive Protein 33.8 H, Total Protein 5.5 L, Albumin 2.8 L, Globulin 2.7, Albumin/Globulin Ratio 1.0 L 03/30/24 11:32: POC Glucose 147 H 03/30/24 16:32: POC Glucose 123 H 03/30/24 18:13: Hgb 7.7 L, Hct 23.3 L 03/30/24 20:13: POC Glucose 178 H 03/31/24 06:24: POC Glucose 119 H I & O for Last 24 hours: Intake & Output 03/28/24 03/29/24 03/30/24 03/31/24 11:59 11:59 11:59 11:59 Intake Total 3516 / 3516 1879 / 1879 1369 / 1369 Output Total 1300 / 1300 925 / 925 1035 / 1035 Balance 2216 / 2216 954 / 954 334 / 334 Weight 255 lb 1.197 oz 272 lb 6.4 oz 273 lb 6 oz 273 lb 6.4 oz Constitutional Constitutional: no acute distress *Routine Respiratory Exam Respiratory: Absent respiratory distress *Routine Cardiovascular Exam Cardiovascular: Absent tachycardia *Routine Skin Exam Comments: Dressings intact. No spreading cellulitis. Progress Note: A&P Assessment and plan (1) Left buttock abscess: Problem details: Left medial buttock/perianal Status: Acute Assessment and plan: Continue dressing changes
--- NOTE | 2024-03-31 07:11 | PC.NURSE ---
new open area to left buttock under current dressed wound. covered with foam dressing.
[2024-03-31 07:31] LABS: Alanine Aminotransferase 20 U/L (12-78); Albumin Level 2.6 g/dl (3.5-5.0); Albumin/Globulin Ratio 0.9 (1.1-1.8); Alkaline Phosphatase 90 U/L (38-126); Anion Gap 6.8 mEq/L (5-15); Aspartate Amino Transferase 26 U/L (17-59); Blood Urea Nitrogen 12 mg/dl (9-20); Carbon Dioxide 22 mmol/L (22.0-30.0); Chloride 111 mmol/L (98-107); Creatinine Clearance Estimated 121 mL/min (50-200); Estimated Glomerular Filt Rate 96 ml/min (>60); GFR (African American) 116 ML/MIN (>60); Globulin 2.8 g/dL (1.3-3.2); Glucose 110 mg/dl (74-100); Potassium 3.8 mmoL/L (3.5-5.1); Sodium 136 mmol/L (136-145); Total Protein,Serum 5.4 g/dl (6.3-8.2)
[2024-03-31 07:33] LABS: Bilirubin,Total 0.1 mg/dl (0.2-1.3)
[2024-03-31] MEDS: SENNOSIDES 8.6MG/DOCUSATE 50MG TABLET 1 TAB PO (08:23)
[2024-03-31] MEDS: GABAPENTIN 100MG CAPSULE 200 MG PO ×3 (08:23→20:55)
[2024-03-31] MEDS: CEFEPIME HCL 2 GM in 0.9 % SODIUM CHLORIDE 100 ML IV ×2 (08:23→20:47)
[2024-03-31] MEDS: METOPROLOL SUCCINATE XL 25MG TABLET 25 MG PO (08:23)
[2024-03-31] MEDS: CLOPIDOGREL 75MG TAB 75 MG PO (08:23)
[2024-03-31] MEDS: PAT OWN MED ***ASPIRIN EC 81MG 81 MG PO (08:23)
[2024-03-31] MEDS: PAT OWN MED ***ATORVASTATIN 40MG 40 MG PO (08:28)
[2024-03-31] MEDS: DOCUSATE SODIUM 250 MG PO ×2 (08:29→20:50)
[2024-03-31] MEDS: PAT OWN MED ***PANTOPRAZOLE 40MG 40 MG PO (08:29)
[2024-03-31] MEDS: FINASTERIDE 5 MG PO (08:29)
[2024-03-31] MEDS: BUSPIRONE HCL 5 MG PO ×3 (08:30→20:52)
[2024-03-31] MEDS: LAMOTRIGINE 100 MG PO ×2 (08:30→20:52)
[2024-03-31] MEDS: METOCLOPRAMIDE 5 MG PO ×2 (08:30→20:52)
[2024-03-31 08:55] LABS: Magnesium 1.8 mg/dl (1.6-2.3)
[2024-03-31 09:00] LABS: C-Reactive Protein 49.4 mg/L (0-4)
[2024-03-31] MEDS: 0.9 % SODIUM CHLORIDE 250 ML 25 ML IV (10:45)
--- NOTE | 2024-03-31 11:20 | P.PN_ITS ---
Subjective *Date: 03/31/24 *Time: 15:53 Interval history: Pain a little better controlled today. Again had extensive discussion about patient's need for significant wound care and IV medications. Reinforced that he would be best served by going to a swing bed or SNF. Patient again states that he will not go to either of those settings. He wants to go home. He is open to home health even though it is only a few days a week. States he has a neighbor that will help with dressing changes and medication. He has not asked her about this as of yet per his report to me on rounds. I informed him he needed to reach out to her and have her come up and learn the dressing changes and medication administration today. Nursing assisted with this phone call. I have strong concern about his ability to be successful at home. He asks during rounds if he could take the antibiotic every other day . I informed him this was insufficient and not have the antibiotics work and would almost certainly lead to failure of antibiotic therapy and worsening infection. Patient is adamant that he will not have his leg amputated. I expressed my concern to him that our best recommendations in his ability/potential for healing and recovering from this injury are greatly limited by his refusal of all reasonable options of treatment other than going home and treating himself at home. Patient states understanding that he is at high risk for failure. There is no further treatment options for him at this time at our facility if his infection comes back. He states understanding. Discussed the potential for hospice, he is open to this if his infection comes back. Asked if he would be open to talking to hospice today to see what they can offer if that were to occur, he was open to this and hospice was consulted. Afebrile, tolerating p.o. intake. No nausea or vomiting. Has had a bowel movement since yesterday. Does not know when he has bowel movements. Medical Exam Vital signs and Labs for Last 24 Hours: Vital Signs Temp Pulse Pulse Resp BP BP Pulse Ox 03/31/24 11:00 98.9 F 90 16 124/52 L 95 03/31/24 10:55 98.9 F 101 H 16 129/45 L 95 03/31/24 10:50 99.6 F 105 H 18 134/77 94 L 03/31/24 10:45 99.7 F H 96 H 18 127/68 93 L 03/31/24 10:30 99.5 F 93 H 18 127/67 92 L 03/31/24 07:59 03/31/24 07:44 98.5 F 92 H 19 119/68 97 03/31/24 06:45 03/31/24 05:00 03/31/24 04:00 98.6 F 88 16 126/72 96 03/31/24 03:00 03/31/24 01:00 03/31/24 00:00 98.3 F 78 18 129/76 95 03/30/24 23:00 03/30/24 21:00 03/30/24 20:00 95 H 94 L 03/30/24 20:00 98.4 F 95 H 18 127/69 94 L 03/30/24 18:53 03/30/24 17:00 03/30/24 16:00 97.9 F 85 18 124/75 97 03/30/24 15:00 03/30/24 12:58 03/30/24 12:00 98.3 F 74 18 106/61 L 97 O2 Del Method 03/31/24 11:00 03/31/24 10:55 03/31/24 10:50 03/31/24 10:45 03/31/24 10:30 03/31/24 07:59 Room Air 03/31/24 07:44 Room Air 03/31/24 06:45 Room Air 03/31/24 05:00 Room Air 03/31/24 04:00 Room Air 03/31/24 03:00 Room Air 03/31/24 01:00 Room Air 03/31/24 00:00 Room Air 03/30/24 23:00 Room Air 03/30/24 21:00 Room Air 03/30/24 20:00 Room Air 03/30/24 20:00 Room Air 03/30/24 18:53 Room Air 03/30/24 17:00 Room Air 03/30/24 16:00 Room Air 03/30/24 15:00 Room Air 03/30/24 12:58 Room Air 03/30/24 12:00 Room Air Intake and Output 03/30/24 03/31/24 03/31/24 23:59 07:59 15:59 Intake Total 590 / 2138 399 / 399 0 / 399 Output Total 485 / 1310 550 / 550 Balance 105 / 828 -151 / -151 0 / -151 Intake: Intake, Oral Amount 240 / 960 120 / 120 Intake, Total IV Amount 350 / 1178 279 / 279 0.9 % Sodium Chloride 1000ML 1, 179 / 179 000 ml @ 50 mls/hr IV .Q20H [facility] Rx#:[id number] Cefepime HCl 2 gm In 0.9 % 100 / 100 Sodium Chloride 100 ml @ 200 mls/hr IV Q12H [facility] Rx#:[id number] Meropenem 1 gm In 0.9 % Sodium 100 / 200 Chloride 100 ml @ 100 mls/hr IV Q8H [facility] Rx#:[id number] Vancomycin HCl 2,250 mg In 0.9 250 / 315 % Sodium Chloride 250 ml @ 125 mls/hr IV Q12H [facility] Rx#:[id number] Intake (Blood Product) Amt 0 / 0 Red Blood Cells Unit 0 / 0 [id number] Output: Output, Urine Amount 475 / 775 300 / 300 Output, Urine Amount (Catheter) 250 / 250 [place] 250 / 250 Output, Drainage Amount Left Foot Other: Number of Voids 0 Number of Unmeasured Voids 0 Number of Bowel Movements 1 Weight 124.012 kg Patient Weight 03/31/24 23:59 Weight 124.012 kg Laboratory Results - last 24 hr 03/30/24 11:32: POC Glucose 147 H 03/30/24 16:32: POC Glucose 123 H 03/30/24 18:13: Hgb 7.7 L, Hct 23.3 L 03/30/24 20:13: POC Glucose 178 H 03/31/24 06:16: WBC 6.0, RBC 2.53 L, Hgb 7.0 L, Hct 21.2 L, MCV 83.9, MCH 27.8, MCHC 33.1, RDW 17.6 H, Plt Count 93 L, MPV 9.3, Neut % (Auto) 54.1, Lymph % (Auto) 26.7, [place] % (Auto) 13.6 H, Eos % (Auto) 5.3, Baso % (Auto) 0.4, Neut # (Auto) 3.2, Lymph # (Auto) 1.6, [place] # (Auto) 0.8, Eos # (Auto) 0.3, Baso # (Auto) 0.0, Sodium 136, Potassium 3.8, Chloride 111 H, Carbon Dioxide 22, Anion Gap 6.8, BUN 12, Creatinine 0.80, Estimated Creat Clear 121, Estimated GFR 96, Est GFR ( Amer) 116, Glucose 110 H, Calcium 8.0 L, Magnesium 1.8, Total Bilirubin 0.1 L, AST 26, ALT 20, Alkaline Phosphatase 90, C-Reactive Protein 49.4 H D, Total Protein 5.4 L, Albumin 2.6 L, Globulin 2.8, Albumin/Globulin Ratio 0.9 L 03/31/24 06:24: POC Glucose 119 H 03/31/24 08:25: Blood Type Confirm B Positive 03/31/24 08:30: Blood Type B Positive, Antibody Screen Negative, Crossmatch (AHG) See Detail I & O for Labs for Last 24 Hours: Intake & Output 03/28/24 03/29/24 03/30/24 03/31/24 23:59 23:59 23:59 23:59 Intake Total 996 / 1396 3630 / 4279 1739 / 2138 399 / 399 Output Total 1650 / 1925 1060 / 1310 550 / 550 Balance 996 / 1396 1980 / 2354 679 / 828 -151 / -151 Weight 115.7 kg 123.559 kg 124 kg 124.012 kg Constitutional: Present no acute distress, obese, chronically ill appearing and cooperative Head: Present atraumatic and normocephalic ENT: Present normal exam Neck: Present normal inspection Respiratory: Present normal respiratory effort; Absent rhonchi, wheezes or crackles Cardiac: Present Reg Rate and Rhythm GI: Present soft and normal bowel sounds; Absent distention or tenderness Comments:: Bandaging on left gluteus Extremities: Present normal inspection and full ROM Comment:: Right cfees-cth-yxli amputation; left foot and Stewart wrap with TOÑO drain in place draining bloody fluid. Forefoot absent Skin: Present intact, erythema (Mild, left anterior burrell), dry (Flaky skin on left lower extremity) and pallor Neuro: Present Grossly Intact, alert, awake, oriented x 3 and moves all extremities Comment:: Absent sensation in left foot Assessment and Plan *Assessment and plan (1) Cellulitis of left leg: Status: Acute Category: Medical Code(s): L03.116 - Cellulitis of left lower limb (2) Diabetic foot infection: Status: Acute Category: Medical Code(s): E11.628 - Type 2 diabetes mellitus with other skin complications; L08.9 - Local infection of the skin and subcutaneous tissue, unspecified (3) Osteomyelitis: Status: Acute Qualifiers: Osteomyelitis type: subacute Osteomyelitis location: foot Laterality: left Qualified Code(s): M86.272 - Subacute osteomyelitis, left ankle and foot Category: Medical Code(s): M86.9 - Osteomyelitis, unspecified (4) S/P transmetatarsal amputation of foot: Status: Acute Qualifiers: Laterality: left Qualified Code(s): Z89.432 - Acquired absence of left foot Category: Surgical Code(s): Z89.439 - Acquired absence of unspecified foot (5) Diabetic ulcer of left heel associated with diabetes mellitus due to underlying condition, limited to breakdown of skin: Status: Acute Category: Medical Code(s): E08.621 - Diabetes mellitus due to underlying condition with foot ulcer; L97.421 - Non-pressure chronic ulcer of left heel and midfoot limited to breakdown of skin (6) Chronic wound: Status: Acute Category: Medical Code(s): T14.8XXA - Other injury of unspecified body region, initial encounter (7) PAD (peripheral artery disease): Status: Acute Category: Medical Code(s): I73.9 - Peripheral vascular disease, unspecified (8) Diabetes: Status: Acute Qualifiers: Diabetes mellitus type: type 2 Diabetes mellitus termite control servicer insulin use: with nursing home use Diabetes mellitus complication status: with circulatory complication Diabetes mellitus complication detail: with peripheral angiopathy without gangrene Qualified Code(s): E11.51 - Type 2 diabetes mellitus with diabetic peripheral angiopathy without gangrene; Z79.4 - termite control servicer (current) use of insulin Category: Medical Code(s): E11.9 - Type 2 diabetes mellitus without complications (9) Functional paraparesis: Status: Acute Category: Medical Code(s): F44.4 - Conversion disorder with motor symptom or deficit (10) Seizure disorder: Status: Chronic Category: Medical Code(s): G40.909 - Epilepsy, unspecified, not intractable, without status epilepticus (11) HTN (hypertension): Status: Chronic Qualifiers: Hypertension type: primary hypertension Qualified Code(s): I10 - Essential (primary) hypertension Category: Medical Code(s): I10 - Essential (primary) hypertension (12) Self-care deficit: Status: Acute Category: Medical Code(s): Z78.9 - Other specified health status (13) Obesity (BMI 30-39.9): Status: Chronic Category: Medical Code(s): E66.9 - Obesity, unspecified (14) Lumbar spinal stenosis: Status: Acute Qualifiers: Neurogenic claudication status: unspecified Qualified Code(s): M48.061 - Spinal stenosis, lumbar region without neurogenic claudication Category: Medical Code(s): M48.061 - Spinal stenosis, lumbar region without neurogenic claudication (15) Left buttock abscess: Problem Comment: Left medial buttock/perianal Status: Acute Category: Medical Code(s): L02.31 - Cutaneous abscess of buttock (16) Right above-knee amputee: Status: Acute Category: Medical Code(s): Z89.611 - Acquired absence of right leg above knee Plan 69 year old male presented to the ED for c/o LLE redness. Admitted to this tube amputation of 3 toes. Admitted last month to [facility] for revision of wound and concern for infection. Podiatry consulted and assisting with care. Concern for worsening infection and foot. Taken for surgery on 03/28. Status post left foot transmetatarsal amputation with irrigation and wide excisional debridement. Postop day 3. Also postop day 3 for I&D of left gluteal abscess. Surgery and podiatry continue to assist with care. Continues to require in patient management. Tolerating vancomycin and cefepime. Necessitating transfusion today due to hemoglobin of 7. Anticipate stability for discharge tomorrow given the establishing of care plan and patient's clear direction to care team that he wants to go home not an intermediate level of care and is willing to manage his wounds and medications at home with help of a friend. Problems addressed as follows: CELLULITIS Diabetic foot infection Metatarsal osteomyelitis gluteal abscess: dressing changes daily -Status post transmetatarsal amputation on 03/28. Still having pain. Tolerating oxycodone with intermittent Dilaudid. Continue gabapentin 200 mg 3 times a day for neuropathic component, monitor for toxicity. - White cell count remains normal at 6. CRP increased today at 49. Repeat CBC, CMP, magnesium, CRP ordered for the morning. - Blood cultures obtained and remain negative -- Discussed case with podiatry and surgery, reviewed their notes. Recommend continuing IV vancomycin and meropenem based on previous cultures; will transition to cefepime however due to ease of dosing and every 12 hours. Wound care as follows: Dressing changes daily, float/offload left heel on pillow. Nonweightbearing to left lower extremity with wheelchair. Specimens:: Pending Cultures: Left 1-2nd metatarsals Left 3-5th metatarsals Path: Left distal foot/toes Left 2nd metatarsal Left 3rd metatarsal bone proximal margin PICC line placed yesterday. Okay to use. Plan to discharge home with home health. Patient again refuses placement for SNF. Anemia: Hemoglobin 7.0 this morning. Will transfuse 1 unit. Chronic anemia but is down 1-2 points from baseline. DM -SSI insulin, FSGS ACHS -Glucose this morning 110 -A1c 6.3 last admission, well-controlled. continue long-acting insulin glargine at decreased dose of 30 units nightly. SEIZURE DISORDER PVD HTN HLD -Continue home medications aspirin 81 mg, Plavix 75 mg daily, atorvastatin 40 mg, finasteride 5mg, lamotrigine 150 mg. Continue metoprolol 25 mg daily, will hold losartan -Recent stenting of left lower extremity, awaiting records from [facility] to review BPH Incontinence - continue finasteride and tamsulosin 0.8mg QHS - indwelling catheter due to breakdown on sacrum and incontinence OBESITY -complicates all aspects of care FULL CODE DIABETIC DIET Holding on anticoagulation due to thrombocytopenia
[2024-03-31] MEDS: FUROSEMIDE 40MG/4ML VIAL 40 MG IV (11:50)
[2024-03-31 12:12] LABS: POC Glucose,Bedside 174 (70-110)
[2024-03-31] MEDS: VANCOMYCIN HCL 2,000 MG in 0.9 % SODIUM CHLORIDE 250 ML 125 MG IV (13:28)
--- NOTE | 2024-03-31 14:36 | PC.NURSE ---
PT IS RESTING IN BED. TURNED AND REPOSITIONED FREQUENTLY. ALERT AND ORIENTED X4. PT HAD A LARGE INCONTINENT BOWEL MOVEMENT THIS SHIFT THAT HE WAS UNAWARE OF. DRESSINGS TO OPEN SORES HAVE BEEN CHANGED TWICE THIS SHIFT. LLE CLEANED AND REDRESSED THIS SHIFT. TOÑO DRAIN NOTED WITH SMALL AMOUNT OF DRAINAGE. PT HAS STATED SEVERAL TIMES THIS SHIFT THAT HE DOES NOT WANT TO GO ANY PLACE FOR REHAB AND STATED TO THE HOSPICE NURSE THAT HE WANTED TO WAIT TO SEE IF THESE ANTIBIOTICS WORK FOR HIS FOOT AND THEN DECIDE ON HOSPICE AFTERWARDS. PT STATED HIS NEIGHBOR WAS GOING TO COME THIS AFTERNOON TO GET EDUCATION ON HOW TO ADMINISTER IV ANTIBIOTICS AT HOME. PT STATED HE FELT LIKE BETWEEN HIS NEIGHBORS AND HIS SISTER HE FEELS LIKE HE WILL HAVE PLENTY OF ASSISTANCE AT HOME. 2700 ML'S OF UOP EMPTIED FROM CATHETER. LUNG SOUNDS DIMINISHED. ABDOMEN SOFT/NON TENDER WITH ACTIVE BOWEL SOUNDS. EATING AND DRINKING WELL. VSS. WILL CONTINUE TO MONITOR.
--- NOTE | 2024-03-31 14:58 | PC.NURSE ---
NOTIFIED CARE MANAGEMENT TO SEE IF PT COULD BE PROVIDED WITH SOME ASSISTANCE TO GET TO HIS FOLLOW UP APPOINTMENT WITH . CARE MANAGEMENT CALLED BACK AND STATED PT NEEDED TO CALL THE AMBULANCE SERVICE WEDNESDAY AND TALK TO MICHAEL TAVERA TO SET UP A RIDE FOR THE DAY OF APPOINTMENT.
[2024-03-31 15:50] LABS: Hematocrit 24.5 % (42.0-52.0)
[2024-03-31 16:03] LABS: Hemoglobin 8.4 g/dL (14.1-18.0)
[2024-03-31 16:37] LABS: POC Glucose,Bedside 172 (70-110)
[2024-03-31] MEDS: OXYCODONE 5MG IMMEDIATE RELEASE TABLET 5 MG PO (17:55)
[2024-03-31] MEDS: PAT OWN MED ***LAMOTRIGINE 150 MG 1 EACH PO (20:50)
[2024-03-31] MEDS: PAT OWN MED ***TAMSULOSIN 0.4MG 0.8 MG PO (20:51)
[2024-03-31] MEDS: INSULIN GLARGINE 100 UNITS/ML 3ML FLEXPEN 30 UNIT SQ (20:53)
[2024-04-01 04:00] VITALS: BP 145/85; PULSE 93; RESP 16; TEMP 36.6; O2SAT 97; BMI 37.0
[2024-04-01] MEDS: OXYCODONE 5MG IMMEDIATE RELEASE TABLET 5 MG PO (04:53)
[2024-04-01 06:24] LABS: Basophils % 0.4 % (0.1-2.0); Eosinophils # 0.4 K/mm3 (0.0-0.4); Eosinophils % 5.1 % (0.1-12.0); Hematocrit 24.3 % (42.0-52.0); Hemoglobin 8.2 g/dL (14.1-18.0); Lymphocytes # 1.5 K/mm3 (0.7-4.5); Lymphocytes % 21.9 % (10-50); Mean Corpuscular Hemoglobin 27.8 pg (27.0-31.2); Mean Platelet Volume 9.4 fl (7.4-10.4); Monocytes # 0.7 K/mm3 (0.1-1.0); Monocytes % 9.8 % (1.7-9.3); Neutrophils # 4.4 K/mm3 (1.8-7.8); Neutrophils % 62.9 % (37.0-80.0); Platelet Count 120 K/mm3 (142-424); Red Blood Count 2.96 M/mm3 (4.60-6.20); Red Cell Distribution Width 17.8 % (11.5-17.5); White Blood Count 7.1 K/mm3 (4.8-10.8)
[2024-04-01 06:25] LABS: Alanine Aminotransferase 18 U/L (12-78); Albumin Level 2.7 g/dl (3.5-5.0); Albumin/Globulin Ratio 0.9 (1.1-1.8); Alkaline Phosphatase 95 U/L (38-126); Anion Gap 7.3 mEq/L (5-15); Aspartate Amino Transferase 23 U/L (17-59); Bilirubin,Total 0.3 mg/dl (0.2-1.3); Blood Urea Nitrogen 15 mg/dl (9-20); Calcium 8.4 mg/dl (8.4-10.2); Carbon Dioxide 24 mmol/L (22.0-30.0); Chloride 109 mmol/L (98-107); Creatinine Clearance Estimated 121 mL/min (50-200); Estimated Glomerular Filt Rate 111 ml/min (>60); GFR (African American) 135 ML/MIN (>60); Globulin 2.9 g/dL (1.3-3.2); Glucose 150 mg/dl (74-100); Magnesium 1.7 mg/dl (1.6-2.3); Potassium 4.3 mmoL/L (3.5-5.1); Sodium 136 mmol/L (136-145); Total Protein,Serum 5.6 g/dl (6.3-8.2)
[2024-04-01 06:28] LABS: POC Glucose,Bedside 175 (70-110)
--- NOTE | 2024-04-01 06:29 | PC.NURSE ---
vss, adequate uop, pt treated for pain prn, pt rested well, no c/o verbalized
[2024-04-01 06:32] LABS: Vancomycin,Trough 18.6 ug/mL (5.0-10.0)
[2024-04-01] MEDS: VANCOMYCIN HCL 2,000 MG in 0.9 % SODIUM CHLORIDE 250 ML 125 MG IV (07:14)
--- NOTE | 2024-04-01 07:35 | P.DS_ITS ---
General Admission date:: 03/27/24 Discharge date: 04/01/24 HPI HPI HPI: This is a 69-year-old male with PMHx of multiple comorbidities including hypertension, hyperlipidemia, recurrent cellulitis of bilateral lower extremities, chronic nonhealing wounds of the bilateral lower extremities, peripheral artery disease s/p right AKA, and multiple nonhealing wounds of the left lower extremity s/p recent 3rd and 4th toes amputation, and discharged home with Home health services who presented emergency department for evaluation of his left foot wound. Recommendation is to undergo amputation given that his prognosis of his left foot is poor however he has refused previously. He is wound care twice a week that sees him and change his dressings. They noticed some drainage from his stitches and caused him to return here for continued evaluation. He has some redness of his lower extremity which is unclear if it is worse than baseline. He otherwise has no other acute complaints. 03/30/24: Podiatry consult f/u Patient resting in bed, eating breakfast. S/P TMA, patient stated he had some throbbing and nerve pain down LLE. Hospital Course Hospital Course Hospital Course: 69 year old male presented to the ED for c/o LLE redness. Admitted to this tube amputation of 3 toes. Admitted last month to [facility] for revision of wound and concern for infection. Podiatry consulted and assisting with care. Concern for worsening infection and foot. Taken for surgery on 03/28. Status post left foot transmetatarsal amputation with irrigation and wide excisional debridement. Tolerated procedure well. Was started on empiric antibiotics based on previous cultures. Will continue antibiotics for total of 7 days after surgery due to source control. Patient clinically stable for next site of care. Due to extensive discussion and refusal to go to a nursing facility or swing bed, patient states he wants to go home and manage his wounds and antibiotics at home with the help of his close friend and neighbor. Patient and neighbor have been educated on medical needs and state they are comfortable with this plan. Strong concern of patient's risk for readmission and failure of therapy. Will discharge home to complete medications and continue dressing changes. Close follow-up scheduled. Patient states understanding he needs to call for his ride on Wednesday and that home health will be conversing with him over the telephone this afternoon for his first dose of antibiotics at home. Problems during admis joseph addressed as follows: Self-care deficit: Daily discussions with patient about his medical needs and ideal treatment options. Discussions as follows from patient note on 03/31: Again had extensive discussion about patient's need for significant wound care and IV medications. Reinforced that he would be best served by going to a swing bed or SNF. Patient again states that he will not go to either of those settings. He wants to go home. He is open to home health even though it is only a few days a week. States he has a neighbor that will help with dressing changes and medication. He has not asked her about this as of yet per his report to me on rounds. I informed him he needed to reach out to her and have her come up and learn the dressing changes and medication administration today. Nursing assisted with this phone call. I have strong concern about his ability to be successful at home. He asks during rounds if he could take the antibiotic every other day . I informed him this was insufficient and not have the antibiotics work and would almost certainly lead to failure of antibiotic therapy and worsening infection. Patient is adamant that he will not have his leg amputated. I expressed my concern to him that our best recommendations in his ability/potential for healing and recovering from this injury are greatly limited by his refusal of all reasonable options of treatment other than going home and treating himself at home. Patient states understanding that he is at high risk for failure. There is no further treatment options for him at this time at our facility if his infection comes back. He states understanding. Discussed the potential for hospice, he is open to this if his infection comes back. Asked if he would be open to talking to hospice today to see what they can offer if that were to occur, he was open to this and hospice was consulted. Patient ultimately declined hospice at this time. Stated he would call them when he was ready for them from home. CELLULITIS Diabetic foot infection Metatarsal osteomyelitis gluteal abscess: dressing changes daily -Patient presented with infection at site of previous revisional surgery distal left foot. See previous notes for full details of amputation of toes approximately 2 months ago and revisional surgery approximately 2 weeks ago. Status post transmetatarsal amputation on 03/28. Plan to follow-up closely with podiatry in the coming week. White cell count has remained normal at 7 on day of discharge. Inflammatory markers consistently elevated during admission. CRP 49 on day before discharge. Tolerating oxycodone for pain control with addition to gabapentin for neuropathic component. Will continue this regimen at discharge. Continue dressing changes daily for left foot and gluteal abscess. Will continue antibiotics with vancomycin 2.25 g daily and cefepime 2 g twice daily to complete a total of 7 days of antibiotics after amputation. Patient is nonweightbearing on left lower extremity and can use a wheelchair. Recommend floating/offloading left heel on a pillow. Specimens:: Pending at discharge Cultures: Left 1-2nd metatarsals Left 3-5th metatarsals Path: Left distal foot/toes Left 2nd metatarsal Left 3rd metatarsal bone proximal margin PICC line placed 03/30. Will use for antibiotics. Home health to assist with management. Okay to remove after last dose of antibiotics. Plan to discharge home with home health. Patient again refuses placement for SNF. Has a neighbor that is going to help him with care including dressing changes and antibiotic administration. She was at bedside on 03/31. Extensive discussion with nursing about patient's needs, stated she was comfortable assisting. Anemia: Chronic in nature but had acute worsening after surgery. Dropped to as low as 7. Was transfused 1 unit. Improved to 8, stable for over 24 hours at this level. No further transfusions at this time. DM -SSI insulin, FSGS ACHS during admission. Glucose this morning 150. A1c 6.3 last admission, well-controlled. continue long-acting insulin glargine. Was on decreased dose during admission. Resume regular dose at home of 42 units nightly. SEIZURE DISORDER PVD HTN HLD -Continue home medications aspirin 81 mg, Plavix 75 mg daily, atorvastatin 40 mg, lamotrigine 150 mg. Continue metoprolol 25 mg daily, will hold losartan due to normotensive state. BPH Incontinence -Patient on finasteride and tamsulosin at home. Indwelling catheter placed during admission due to breakdown of scrotum, incontinence, gluteal wound. Extensive discussion with patient on day of discharge after informing him I was can remove the catheter. He his adamantly requested leaving catheter in place due to the difficulty of keeping himself dry and risk of further breakdown on his bottom and scrotum. After further discussion of risk of urinary tract infection, sepsis, penile trauma, patient has elected to leave [place] in place and states understanding of risks of this device. Will need to be changed monthly by home health. Recommend stopping at this time as finasteride and tamsulosin given catheter staying in place. OBESITY Functional paraplegia -complicates all aspects of care At this time, given patient's comorbidities, his recurring infection in his leg, failure of oral antibiotics and need to transition to IV antibiotics, his condition has become extremely complex. If he does have further infection, it is my recommendation that he be treated at a tertiary center with infectious disease as he has exhausted our ability to effectively manage his infections and would need a higher level of care to further address his ongoing issue use. Exam Data for Last 24 hours Vital signs and Labs for Last 24 Hours: Temp Pulse Resp BP Pulse Ox O2 Del Method 98.5 F 92 H 19 119/68 97 Room Air 03/31/24 07:44 03/31/24 07:44 03/31/24 07:44 03/31/24 07:44 03/31/24 07:44 03/31/24 07:44 Laboratory Results - last 24 hr 03/30/24 06:23: ESR 117 H, Sodium 137, Potassium 3.5, Chloride 111 H, Carbon Dioxide 21 L, Anion Gap 8.5, BUN 12, Creatinine 0.70, Estimated Creat Clear 121, Estimated GFR 111, Est GFR ( Amer) 135, Glucose 93, Calcium 7.9 L, Magnesium 1.9 D, Total Bilirubin 0.1 L, AST 23, ALT 19, Alkaline Phosphatase 84, C-Reactive Protein 33.8 H, Total Protein 5.5 L, Albumin 2.8 L, Globulin 2.7, Albumin/Globulin Ratio 1.0 L 03/30/24 11:32: POC Glucose 147 H 03/30/24 16:32: POC Glucose 123 H 03/30/24 18:13: Hgb 7.7 L, Hct 23.3 L 03/30/24 20:13: POC Glucose 178 H 03/31/24 06:16: WBC 6.0, RBC 2.53 L, Hgb 7.0 L, Hct 21.2 L, MCV 83.9, MCH 27.8, MCHC 33.1, RDW 17.6 H, Plt Count 93 L, MPV 9.3, Neut % (Auto) 54.1, Lymph % (Auto) 26.7, Ralls % (Auto) 13.6 H, Eos % (Auto) 5.3, Baso % (Auto) 0.4, Neut # (Auto) 3.2, Lymph # (Auto) 1.6, [place]alls # (Auto) 0.8, Eos # (Auto) 0.3, Baso # (Auto) 0.0, Sodium 136, Potassium 3.8, Chloride 111 H, Carbon Dioxide 22, Anion Gap 6.8, BUN 12, Creatinine 0.80, Estimated Creat Clear 121, Estimated GFR 96, Est GFR ( Amer) 116, Glucose 110 H, Calcium 8.0 L, Total Bilirubin 0.1 L, AST 26, ALT 20, Alkaline Phosphatase 90, Total Protein 5.4 L, Albumin 2.6 L, Globulin 2.8, Albumin/Globulin Ratio 0.9 L 03/31/24 06:24: POC Glucose 119 H I & O for Last 24 hours: Intake & Output 03/28/24 03/29/24 03/30/24 03/31/24 23:59 23:59 23:59 23:59 Intake Total 996 / 1396 3630 / 4279 1739 / 2138 399 / 399 Output Total 1650 / 1925 1060 / 1310 550 / 550 Balance 996 / 1396 1980 / 2354 679 / 828 -151 / -151 Weight 115.7 kg 123.559 kg 124 kg 124.012 kg Constitutional Constitutional: no acute distress, obese, chronically ill appearing and cooperative *Routine HEENT Exam Head: Present normocephalic Eye: Present EOMI and PERRL ENT: Present mucous membranes moist *Routine Neck Exam Neck: Present supple; Absent lymphadenopathy *Routine Respiratory Exam Respiratory: Present CTA bilaterally; Absent rhonchi, wheezes or crackles *Routine Cardiovascular Exam Cardiovascular: Present RRR *Routine Abdominal Exam Abdominal: Present soft and normoactive bowel sounds; Absent tenderness *Routine Exam Comments: Long-term in-dwelling catheter in place. *Routine Extremities Exam Extremities: Present edema (Treat his left lower extremity); Absent cyanosis or clubbing Comments: left foot is covered in dressing with TOÑO drain; right leg AKA *Routine Skin Exam Skin: Present erythema (Left lower extremity, chronic stasis changes) and warm; Absent rash *Routine Neurological Exam Neurological: Present alert, oriented X3 and moving all extremities; Absent altered mental status Results Data Completed and Pending Labs on day of discharge: Labs from last 24 hours 03/31/24 03/31/24 03/30/24 06:24 06:16 20:13 WBC 6.0 RBC 2.53 L Hgb 7.0 L Hct 21.2 L MCV 83.9 MCH 27.8 MCHC 33.1 RDW 17.6 H Plt Count 93 L MPV 9.3 Neut % (Auto) 54.1 Lymph % (Auto) 26.7 Ralls % (Auto) 13.6 H Eos % (Auto) 5.3 Baso % (Auto) 0.4 Neut # (Auto) 3.2 Lymph # (Auto) 1.6 Ralls # (Auto) 0.8 Eos # (Auto) 0.3 Baso # (Auto) 0.0 ESR Sodium 136 Potassium 3.8 Chloride 111 H Carbon Dioxide 22 Anion Gap 6.8 BUN 12 Creatinine 0.80 Estimated Creat Clear 121 Estimated GFR 96 Est GFR ( Amer) 116 Glucose 110 H POC Glucose 119 H 178 H Calcium 8.0 L Magnesium Total Bilirubin 0.1 L AST 26 ALT 20 Alkaline Phosphatase 90 C-Reactive Protein Total Protein 5.4 L Albumin 2.6 L Globulin 2.8 Albumin/Globulin Ratio 0.9 L 03/30/24 03/30/24 03/30/24 18:13 16:32 11:32 WBC RBC Hgb 7.7 L Hct 23.3 L MCV MCH MCHC RDW Plt Count MPV Neut % (Auto) Lymph % (Auto) Ralls % (Auto) Eos % (Auto) Baso % (Auto) Neut # (Auto) Lymph # (Auto) [place] # (Auto) Eos # (Auto) Baso # (Auto) ESR Sodium Potassium Chloride Carbon Dioxide Anion Gap BUN Creatinine Estimated Creat Clear Estimated GFR Est GFR ( Amer) Glucose POC Glucose 123 H 147 H Calcium Magnesium Total Bilirubin AST ALT Alkaline Phosphatase C-Reactive Protein Total Protein Albumin Globulin Albumin/Globulin Ratio 03/30/24 06:23 WBC RBC Hgb Hct MCV MCH MCHC RDW Plt Count MPV Neut % (Auto) Lymph % (Auto) [place] % (Auto) Eos % (Auto) Baso % (Auto) Neut # (Auto) Lymph # (Auto) Ralls # (Auto) Eos # (Auto) Baso # (Auto) ESR 117 H Sodium 137 Potassium 3.5 Chloride 111 H Carbon Dioxide 21 L Anion Gap 8.5 BUN 12 Creatinine 0.70 Estimated Creat Clear 121 Estimated GFR 111 Est GFR ( Amer) 135 Glucose 93 POC Glucose Calcium 7.9 L Magnesium 1.9 D Total Bilirubin 0.1 L AST 23 ALT 19 Alkaline Phosphatase 84 C-Reactive Protein 33.8 H Total Protein 5.5 L Albumin 2.8 L Globulin 2.7 Albumin/Globulin Ratio 1.0 L Preliminary micro results at discharge 03/27/24 17:20 Blood Culture - Preliminary Blood NO GROWTH AFTER 48 HOURS 03/27/24 17:20 Blood Culture - Preliminary Blood NO GROWTH AFTER 48 HOURS DS: Diagnosis Discharge Diagnosis (1) Left buttock abscess: Status: Acute Code(s): L02.31 - Cutaneous abscess of buttock Problem details: Left medial buttock/perianal Meds Home Medications and Allergies Home Medications Medication Instructions Recorded Confirmed Type aspirin 81 mg tablet,delayed 81 mg PO DAILY 04/20/23 03/27/24 History release buspirone 5 mg tablet 5 mg PO TID 04/20/23 03/27/24 History furosemide 40 mg tablet 40 mg PO DAILY Fluid 04/20/23 03/27/24 History lamotrigine 100 mg tablet 100 mg PO BID 04/20/23 03/27/24 History lamotrigine 150 mg tablet 150 mg PO HS Seizures 04/21/23 03/27/24 History insulin glargine 100 unit/mL (3 42 unit SQ HS 06/04/23 03/27/24 History mL) subcutaneous pen (Lantus Solostar U-100 Insulin) clopidogrel 75 mg tablet (Plavix) 75 mg PO DAILY #30 tabs 06/08/23 03/28/24 Rx metoprolol succinate 25 mg 25 mg PO DAILY #30 tabs 06/08/23 03/28/24 Rx tablet,extended release 24 hr atorvastatin 40 mg tablet 40 mg PO DAILY 03/03/24 03/27/24 History baclofen 10 mg tablet 10 mg PO BIDP PRN Muscle Spasm 03/03/24 03/28/24 History pantoprazole 40 mg tablet,delayed 40 mg PO DAILY 03/03/24 03/27/24 History release metoclopramide HCl 5 mg tablet 5 mg PO BID 03/27/24 03/27/24 History sennosides 8.6 mg-docusate sodium 1 tab PO BID 30 days #60 tabs 03/31/24 Rx 50 mg tablet (Stimulant Laxative Plus) Cefepime HCl [Maxipime 2gm Vial] 2 200 mls/hr IV Q12H 04/01/24 Rx gm Vancomycin HCl [Vancomycin 1000mg 125 mls/hr IV Q24H 04/01/24 Rx vial] 2,250 mg gabapentin 100 mg capsule 200 mg (2 x 100 mg) PO TID 30 days 04/01/24 Rx #180 caps oxycodone 5 mg tablet 5 mg PO Q6HP PRN Severe Pain 04/01/24 Rx (7-10) 3 days #12 tabs New Prescriptions to Start Prescriptions: gabapentin Feliciano Coto oxycodone Feliciano Coto sennosides-docusate sodium [Stimulant Laxative Plus] Feliciano Coto Cefepime HCl [Maxipime 2gm Vial] 2 gm 0.9 % Sodium Chloride [Sod Chloride 0.9% MB+ 100mL] 100 ml 200 mls/hr IV Q12H Vancomycin HCl [Vancomycin 1000mg vial] 2,250 mg 0.9 % Sodium Chloride [Sod Chlor 0.9% 250mL Bag] 250 ml 125 mls/hr IV Q24H Allergies Allergy/AdvReac Type Severity Reaction Status Date / Time hydrocodone [From LORTAB] Allergy Unknown NA-NAUSEA/V Verified 06/04/23 16:47 OMITING levetiracetam [From Keppra] Allergy Verified 03/03/24 23:56 tramadol AdvReac Unknown Verified 06/04/23 16:47 allergy reaction Discharge Plan Disposition Patient Disposition: Home Health Service Condition: Undetermined Discharge Order Discharge Orders: Discharge Order (Routine); Ordered 04/01/24 Ordered By: Feliciano Coto Follow up Plan Follow up with: Sherri Faust DPM [Staff Physician] - 04/10/24 3:00 pm Juni Bowen MD [Staff Physician] - 04/12/24 10:15 am Prescriptions/Medication Reconciliation: New sennosides-docusate sodium [Stimulant Laxative Plus] 8.6-50 mg Tablet 1 tab PO BID 30 Days Qty: 60 0RF gabapentin 100 mg Capsule 200 mg PO TID 30 Days Qty: 180 0RF Cefepime HCl [Maxipime 2gm Vial] 2 GM 0.9 % Sodium Chloride [Sod Chloride 0.9% MB+ 100mL] 100 ML 200 mls/hr IV Q12H Ordered By: Feliciano Coto MD Last Taken: 04/01/24 10:06 200 mls/hr oxycodone 5 mg Tablet 5 mg PO Q6HP PRN (Reason: Severe Pain (7-10)) 3 Days Qty: 12 0RF Vancomycin HCl [Vancomycin 1000mg vial] 2250 MG 0.9 % Sodium Chloride [Sod Chlor 0.9% 250mL Bag] 250 ML 125 mls/hr IV Q24H Ordered By: Feliciano Coto MD Last Taken: 04/01/24 07:14 125 mls/hr Continued insulin glargine [Lantus Solostar U-100 Insulin] 100 unit/mL (3 mL) insulin pen 42 unit SQ HS metoprolol succinate 25 mg Tablet Extended Release 24 Hr 25 mg PO DAILY Qty: 30 0RF clopidogrel [Plavix] 75 mg tablet 75 mg PO DAILY Qty: 30 0RF metoclopramide HCl 5 mg tablet 5 mg PO BID Patient Comments: take 1 tab(s) orally 2 times a day before meal 30 days furosemide 40 mg tablet 40 mg PO DAILY Patient Comments: TAKE ONE TABLET BY MOUTH ONCE DAILY buspirone 5 mg tablet 5 mg PO TID Hold Instructions: Hold until completing Zyvox. Okay to resume 24 hours after last dose of Zyvox. Patient Comments: TAKE ONE TABLET BY MOUTH THREE TIMES DAILY aspirin 81 mg tablet,delayed release (DR/EC) 81 mg PO DAILY lamotrigine 100 mg tablet 100 mg PO BID Patient Comments: TAKE ONE TABLET BY MOUTH TWICE DAILY lamotrigine 150 mg tablet 150 mg PO HS Patient Comments: TAKE ONE TABLET BY MOUTH AT BEDTIME Rx Instructions: 150mg by mouth nightly with the 100mg tablet for seizures baclofen 10 mg Tablet 10 mg PO BIDP PRN (Reason: Muscle Spasm) pantoprazole 40 mg Tablet,Delayed Release (Dr/Ec) 40 mg PO DAILY atorvastatin 40 mg tablet 40 mg PO DAILY Patient Comments: TAKE ONE TABLET BY MOUTH ONCE DAILY Discontinued tamsulosin 0.4 mg capsule 0.8 mg PO HS losartan 50 mg tablet 50 mg PO DAILY Patient Comments: TAKE ONE TABLET BY MOUTH ONCE DAILY docusate sodium 250 mg capsule 250 mg PO BID Patient Comments: TAKE ONE CAPSULE BY MOUTH TWICE DAILY finasteride 5 mg tablet 5 mg PO DAILY Patient Comments: TAKE ONE TABLET BY MOUTH ONCE DAILY ferrous sulfate 325 mg (65 mg iron) Tablet 325 mg PO DAILY Problem Reconciliation Problems Reviewed?: Yes Patient Discharge Instructions ACTIVITY: Continue current activity DIET: continue same diet Patient Instructions: DI for Debridement of a Wound, Infection, or Burn, DI for Surgical Site Infection, DI for Wound Infection, Peripherally Inserted Central Catheter Infections, DI for Incision and Drainage Providers Primary Care Provider: Gustavo Leggett Admit Provider: Rancho Gutierrez Attending Provider: Rancho Gutierrez
[2024-04-01 07:37] LABS: POC Glucose,Bedside 244 (70-110)
[2024-04-01 08:00] VITALS: BP 121/60; PULSE 92; RESP 18; TEMP 36.8; O2SAT 95
[2024-04-01] MEDS: PAT OWN MED ***ATORVASTATIN 40MG 40 MG PO (08:25)
[2024-04-01] MEDS: FINASTERIDE 5 MG PO (08:25)
[2024-04-01] MEDS: PAT OWN MED ***ASPIRIN EC 81MG 81 MG PO (08:25)
[2024-04-01] MEDS: DOCUSATE SODIUM 250 MG PO (08:25)
[2024-04-01] MEDS: PAT OWN MED ***PANTOPRAZOLE 40MG 40 MG PO (08:25)
[2024-04-01] MEDS: BUSPIRONE HCL 5 MG PO (08:26)
[2024-04-01] MEDS: METOCLOPRAMIDE 5 MG PO (08:26)
[2024-04-01] MEDS: LAMOTRIGINE 100 MG PO (08:26)
[2024-04-01] MEDS: METOPROLOL SUCCINATE XL 25MG TABLET 25 MG PO (08:27)
[2024-04-01] MEDS: GABAPENTIN 100MG CAPSULE 200 MG PO (08:27)
[2024-04-01] MEDS: FUROSEMIDE 40 MG TABLET PO (08:27)
[2024-04-01] MEDS: CLOPIDOGREL 75MG TAB 75 MG PO (08:27)
[2024-04-01] MEDS: SENNOSIDES 8.6MG/DOCUSATE 50MG TABLET 1 TAB PO (08:28)
--- NOTE | 2024-04-01 09:02 | P.CONPHA_ITS ---
Pharmacy Consult Date: 04/01/24 Time: 09:02 Referring provider: DR. WAHL Reason for Consult:: VANCOMYCIN DOSING Allergies Allergy/AdvReac Type Severity Reaction Status Date / Time hydrocodone [From LORTAB] Allergy Unknown NA-NAUSEA/V Verified 06/04/23 16:47 OMITING levetiracetam [From Keppra] Allergy Verified 03/03/24 23:56 tramadol AdvReac Unknown Verified 06/04/23 16:47 allergy reaction Home Medications Medication Instructions Recorded Confirmed Type aspirin 81 mg tablet,delayed 81 mg PO DAILY 04/20/23 03/27/24 History release buspirone 5 mg tablet 5 mg PO TID 04/20/23 03/27/24 History finasteride 5 mg tablet 5 mg PO DAILY PROSTATE 04/20/23 03/27/24 History furosemide 40 mg tablet 40 mg PO DAILY Fluid 04/20/23 03/27/24 History lamotrigine 100 mg tablet 100 mg PO BID 04/20/23 03/27/24 History lamotrigine 150 mg tablet 150 mg PO HS Seizures 04/21/23 03/27/24 History insulin glargine 100 unit/mL (3 42 unit SQ HS 06/04/23 03/27/24 History mL) subcutaneous pen (Lantus Solostar U-100 Insulin) tamsulosin 0.4 mg capsule 0.8 mg PO HS 06/04/23 03/27/24 History clopidogrel 75 mg tablet (Plavix) 75 mg PO DAILY #30 tabs 06/08/23 03/28/24 Rx metoprolol succinate 25 mg 25 mg PO DAILY #30 tabs 06/08/23 03/28/24 Rx tablet,extended release 24 hr atorvastatin 40 mg tablet 40 mg PO DAILY 03/03/24 03/27/24 History baclofen 10 mg tablet 10 mg PO BIDP PRN Muscle Spasm 03/03/24 03/28/24 History pantoprazole 40 mg tablet,delayed 40 mg PO DAILY 03/03/24 03/27/24 History release metoclopramide HCl 5 mg tablet 5 mg PO BID 03/27/24 03/27/24 History sennosides 8.6 mg-docusate sodium 1 tab PO BID 30 days #60 tabs 03/31/24 Rx 50 mg tablet (Stimulant Laxative Plus) New Prescriptions to Start Prescriptions: sennosides-docusate sodium [Stimulant Laxative Plus] Feliciano Wahl Height: 1.83 m Weight: 124.012 kg Laboratory Results:: Laboratory Results - last 24 hr 03/31/24 06:16: C-Reactive Protein 49.4 H D 03/31/24 08:25: Blood Type Confirm B Positive 03/31/24 08:30: Blood Type B Positive, Antibody Screen Negative, Crossmatch (AHG) See Detail 03/31/24 12:04: POC Glucose 174 H 03/31/24 15:42: Hgb 8.4 L D, Hct 24.5 L 03/31/24 16:29: POC Glucose 172 H 03/31/24 20:48: POC Glucose 244 H 04/01/24 06:00: WBC 7.1, RBC 2.96 L, Hgb 8.2 L, Hct 24.3 L, MCV 82.0, MCH 27.8, MCHC 34.0, RDW 17.8 H, Plt Count 120 L D, MPV 9.4, Neut % (Auto) 62.9, Lymph % (Auto) 21.9, [place] % (Auto) 9.8 H, Eos % (Auto) 5.1, Baso % (Auto) 0.4, Neut # (Auto) 4.4, Lymph # (Auto) 1.5, [place] # (Auto) 0.7, Eos # (Auto) 0.4, Baso # (Auto) 0.0, Sodium 136, Potassium 4.3, Chloride 109 H, Carbon Dioxide 24, Anion Gap 7.3, BUN 15, Creatinine 0.70, Estimated Creat Clear 121, Estimated GFR 111, Est GFR ( Amer) 135, Glucose 150 H D, Calcium 8.4, Magnesium 1.7, Total Bilirubin 0.3, AST 23, ALT 18, Alkaline Phosphatase 95, Total Protein 5.6 L, Albumin 2.7 L, Globulin 2.9, Albumin/Globulin Ratio 0.9 L, Vancomycin Trough 18.6 H 04/01/24 06:06: POC Glucose 175 H Medical History: Medical History (Updated 03/29/24 @ 08:49 by Juni Bowen MD) Seizure CAD in [place] artery Acute febrile illness Atrial flutter Bilateral cellulitis of lower leg Cellulitis Diabetes mellitus Dystrophia unguium Fatigue Fever Infestation by fly larvae Lymphedema of both lower extremities Malaise Obesity with body mass index (BMI) of 30.0 to 39.9 Peripheral vascular disease Renal insufficiency Spinal stenosis of cervical region Spinal stenosis of lumbar region Systemic inflammatory response syndrome (SIRS) Ulcers of both lower extremities Uncontrolled diabetes mellitus History of left heart catheterization (LHC) Assessment and Plan Assessment and plan all Dx Assessment and Plan for all problems:: PATIENT'S VANCOMYCIN TROUGH LEVEL WAS 18.6 MCG/ML THIS AM WITH VANCOMYCIN 2000 MG Q18H DOSING. RECOMMEND PATIENT CONTINUE WITH VANCOMYCIN 2250 MG Q24H AT THIS TIME.
[2024-04-01] MEDS: CEFEPIME HCL 2 GM in 0.9 % SODIUM CHLORIDE 100 ML IV (10:06)
--- NOTE | 2024-04-01 11:16 | PC.NURSE ---
BEFORE DISCHARGE ALL OF PT'S WOUND DRESSINGS HAVE BEEN CHANGED. TOÑO DRAIN TO LLE EMPTIED (5 ML'S). PICC LINE DRESSING CHANGED. NOTIFIED PT'S SISTER TO UPDATE HER ON DISCHARGE PLANS AND ABOUT PT NEEDING TO BE REMINDED ABOUT CALLING THE AMBULANCE ON WEDNESDAY TO ARRANGE TRANSPORTATION FOR HIS FOLLOW UP APPOINTMENT WITH . PT'S SISTER IS AWARE THAT PT IS GOING HOME AND EVEN THOUGH SHE FEELS HE IS NOT SAFE AT HOME PT ABSOLUTELY REFUSES TO GO TO A SHELTER AND SHE KNOWS THERE IS NOTHING THAT CAN BE DONE DUE TO PT HAVING HIS MIND MADE UP.
--- NOTE | 2024-04-04 10:43 | CARE MANAGER ---
Unable to reach patient via phone to discuss recent discharge. Call attempted X 2 and Voicemail was left with call back information.
== END 2024-04-01 12:32 | disposition home health service (06) | DRG 240 ==
LOC: ER 21:16 → 2ND 22:02
PROVIDERS: Internal Medicine Adolescent Medicine; Nurse Practitioner Family; Podiatrist; Surgery; Admitting Provider Internal Medicine; Emergency Provider Emergency Medicine; PCP Internal Medicine Adolescent Medicine; Visit Provider Internal Medicine
PROC: 0Y6N0Z9 Detachment at Left Foot, Partial 1st Ray, Open Approach (ICD-10-PCS; 2024-03-28 13:00)
DX: E11.52 Type 2 diabetes mellitus with diabetic peripheral angiopathy with gangrene (principal); L02.31 Cutaneous abscess of buttock; L03.116 Cellulitis of left lower limb; M86.272 Subacute osteomyelitis, left ankle and foot; L97.421 Non-pressure chronic ulcer of left heel and midfoot limited to breakdown of skin; L03.115 Cellulitis of right lower limb; I73.9 Peripheral vascular disease, unspecified; Z79.4 Long term (current) use of insulin; F44.4 Conversion disorder with motor symptom or deficit; E11.628 Type 2 diabetes mellitus with other skin complications; L08.9 Local infection of the skin and subcutaneous tissue, unspecified; G40.909 Epilepsy, unspecified, not intractable, without status epilepticus; I10 Essential (primary) hypertension; E66.9 Obesity, unspecified; M48.061 Spinal stenosis, lumbar region without neurogenic claudication; Z89.611 Acquired absence of right leg above knee; Z79.899 Other long term (current) drug therapy; Z68.37 Body mass index [BMI] 37.0-37.9, adult; I89.0 Lymphedema, not elsewhere classified; E11.621 Type 2 diabetes mellitus with foot ulcer; Z73.89 Other problems related to life management difficulty; Z60.2 Problems related to living alone; D64.9 Anemia, unspecified
CPT/HCPCS: 36415; 36430; 36569; 71045; 73630; 73706; 80053; 80202; 81001; 82962; 83735; 85014; 85018; 85025; 85651; 86140; 86850; 87040; 87070; 87205; 88304; 88305; 88307; 88311; 93923; 99285; C1751; J0131; J1100; J1170; J1580; J1650; J1885; J1940; J2185; J2250; J2270; J2405; J3010; J3370; J3475; P9016; Q9967

== ENCOUNTER 2024-04-21 23:54 | Inpatient (IN) | payer MEDICARE, SELFPAY ==
[2024-04-21 23:55] VITALS: BP 156/84; PULSE 105; RESP 16; TEMP 36.5; O2SAT 99; BMI 29.8
[2024-04-22] VITALS (21 sets, daily range): BP systolic 100–149; BP diastolic 51–79; PULSE 80–111; RESP 14–22; TEMP 36.6–36.8; O2SAT 95–100
--- NOTE | 2024-04-22 00:26 | CT_ITS ---
PROCEDURE INFORMATION: Exam: CT Abdomen And Pelvis With Contrast Exam date and time: 04/22/2024 3:34 AM Age: 69 years old Clinical indication: Abdominal pain; Additional info: Abd pain, L flank pain, nausea TECHNIQUE: Imaging protocol: Computed tomography of the abdomen and pelvis with contrast. Radiation optimization: All CT scans at this facility use at least one of these dose optimization techniques: automated exposure control; mA and/or kV adjustment per patient size (includes targeted exams where dose is matched to clinical indication); or iterative reconstruction. Contrast material: ISOVUE; Contrast volume: 75 ml; Contrast route: IV; COMPARISON: CT ANGIO ABDOMEN/FEMORAL 06/04/2023 1:28 PM FINDINGS: Tubes, catheters and devices: Urinary bladder is catheterized. Lungs: Right lower lobe granuloma. Left lower lobe scarring/atelectasis with mild bronchiectasis. Heart: Base of heart is unremarkable as visualized. Coronary arteries: Moderate to heavy calcified atherosclerotic disease of the visualized coronary vasculature. Liver: Normal. No mass. Gallbladder and biliary ducts: Gallbladder is distended. Pancreas: Mild atrophy of the pancreas. Spleen: Normal. No splenomegaly. Adrenal glands: Normal. No mass. Kidneys and ureters: Symmetric perinephric stranding. Few hypoattenuating foci of the bilateral kidneys, too small characterize by modality. Stomach and bowel: Mild to moderate colonic stool burden. Appendix: No evidence of appendicitis. Intraperitoneal space: Unremarkable. No free air. No significant fluid collection. Vasculature: Dvct-[id number] calcified atherosclerotic disease. IVC filter is in place, filter tip is infrarenal. Multiple calcified pelvic phleboliths. Lymph nodes: Unremarkable. No enlarged lymph nodes. Urinary bladder: Urinary bladder is decompressed secondary to catheterization, difficult to completely characterize. Reproductive: Unremarkable as visualized. Bones/joints: Diffuse degenerative change of the visualized osseous structures. Wedging deformities of T12 and T11, stable in severity from 06/04/2023. Soft tissues: Small fat containing umbilical hernia. Fat containing indirect left inguinal hernia. Calcified soft tissue nodule, right of midline in the pelvis, likely old focus of fat necrosis. IMPRESSION: 1. No acute intra-abdominal findings. 2. Nonacute findings as discussed above. COMMENTS: For patients with an IVC filter, recommend assessment for a management plan for the patient's IVC filter. If there is no established management plan, recommend referral to an interventional clinician on a nonemergent basis for evaluation.
--- NOTE | 2024-04-22 00:29 | ECG_ITS ---
APPROVED REPORT Exam: Resting ECG HR:115 bpm ECG Measurements Heart Rate 115 AXES RI 112 P 70 QRSd 117 QRS 68 QT 366 T 23 QTc 434 Conclusion SINUS TACHYCARDIA WITH SHORT RI INTERVAL WITH FREQUENT VENTRICULAR PREMATURE COMPLEXES ABNORMAL ECG No STEMI Electronically signed by : FAIZAN DIAMOND, 04/22/2024 06:09:01
--- NOTE | 2024-04-22 00:30 | ED_ITS ---
Discharge Plan Disposition Patient Disposition: Admitted Condition: Good Prescriptions Prescriptions: No Action linezolid [Zyvox] 600 mg tablet 600 mg PO Q12H 14 Days Qty: 28 0RF insulin glargine [Lantus Solostar U-100 Insulin] 100 unit/mL (3 mL) insulin pen 42 unit SQ HS metoprolol succinate 25 mg Tablet Extended Release 24 Hr 25 mg PO DAILY Qty: 30 0RF clopidogrel [Plavix] 75 mg tablet 75 mg PO DAILY Qty: 30 0RF metoclopramide HCl 5 mg tablet 5 mg PO BID Patient Comments: take 1 tab(s) orally 2 times a day before meal 30 days gabapentin 100 mg Capsule 200 mg PO TID 30 Days Qty: 180 0RF furosemide 40 mg tablet 40 mg PO DAILY Patient Comments: TAKE ONE TABLET BY MOUTH ONCE DAILY buspirone 5 mg tablet 5 mg PO TID Patient Comments: TAKE ONE TABLET BY MOUTH THREE TIMES DAILY aspirin 81 mg tablet,delayed release (DR/EC) 81 mg PO DAILY lamotrigine 100 mg tablet 100 mg PO BID Patient Comments: TAKE ONE TABLET BY MOUTH TWICE DAILY lamotrigine 150 mg tablet 150 mg PO HS Patient Comments: TAKE ONE TABLET BY MOUTH AT BEDTIME Rx Instructions: 150mg by mouth nightly with the 100mg tablet for seizures baclofen 10 mg Tablet 10 mg PO BIDP PRN (Reason: Muscle Spasm) pantoprazole 40 mg Tablet,Delayed Release (Dr/Ec) 40 mg PO DAILY atorvastatin 40 mg tablet 40 mg PO DAILY Patient Comments: TAKE ONE TABLET BY MOUTH ONCE DAILY Clinical Impressions Clinical Impression: Arrhythmia, Nausea, Decubitus ulcer Print Language Print Language: Macanese Discharge ED Provider: Marcia Barnes General Adult HPI General Chief complaint: Nausea/Vomiting/Diarrhea Stated complaint: malaise Time Seen by Provider: 04/22/24 00:02 Mode of Arrival: EMS Source of Information: Patient Limitations: Physical Limitations Description of Symptoms (Recalled from ER Triage Doc. by RN): He states he has not been feeling well for the last 4 days. He reports nausea. Denies any other symptoms including recent fever. Does report having Dr. Faust amputating several toes on his left foot 3 weeks ago. History of Present Illness HPI narrative: 69-year-old male presents to the ER for complaints of generalized malaise for the last 4 days associated with nausea but no vomiting. Last bowel movement was yesterday. No diarrhea, bloody stools, or melanotic stools. Patient reports left flank pain. He does report recent history of toe amputation by Dr. Faust approximately 3 to 4 weeks ago. At that time a [place] catheter was placed and he states his home health team was supposed to exchange it next week. He remarks that his urine has been appearing dark. Patient states he has had a poor appetite. Denies fever. No chest pain or difficulty breathing. No other associated symptoms Related Data Home Medications ?Medication ?Instructions ?Recorded ?Confirmed aspirin 81 mg tablet,delayed 81 mg PO DAILY 04/20/23 04/17/24 release buspirone 5 mg tablet 5 mg PO TID 04/20/23 04/17/24 furosemide 40 mg tablet 40 mg PO DAILY Fluid 04/20/23 04/17/24 lamotrigine 100 mg tablet 100 mg PO BID 04/20/23 04/17/24 lamotrigine 150 mg tablet 150 mg PO HS Seizures 04/21/23 04/17/24 insulin glargine 100 unit/mL (3 42 unit SQ HS 06/04/23 04/17/24 mL) subcutaneous pen (Lantus Solostar U-100 Insulin) atorvastatin 40 mg tablet 40 mg PO DAILY 03/03/24 04/17/24 baclofen 10 mg tablet 10 mg PO BIDP PRN Muscle Spasm 03/03/24 04/17/24 pantoprazole 40 mg tablet,delayed 40 mg PO DAILY 03/03/24 04/17/24 release metoclopramide HCl 5 mg tablet 5 mg PO BID 03/27/24 04/17/24 Previous Rx's ?Medication ?Instructions ?Recorded clopidogrel 75 mg tablet (Plavix) 75 mg PO DAILY #30 tabs 06/08/23 metoprolol succinate 25 mg 25 mg PO DAILY #30 tabs 06/08/23 tablet,extended release 24 hr gabapentin 100 mg capsule 200 mg (2 x 100 mg) PO TID 30 days 04/01/24 #180 caps linezolid 600 mg tablet (Zyvox) 600 mg PO Q12H 14 days #28 tabs 04/10/24 Allergies Allergy/AdvReac Type Severity Reaction Status Date / Time hydrocodone [From [facility]] Allergy Unknown NA-NAUSEA/V Verified 04/22/24 00:02 OMITING codeine Allergy Verified 04/22/24 00:02 levetiracetam [From [facility]] Allergy Verified 04/22/24 00:02 tramadol AdvReac Unknown Verified 04/22/24 00:02 allergy reaction [facility] Disclaimer: The information contained in this section may have been updated after the patient was seen, as this information can be updated by other users. Medical History Seizure CAD in [place] artery Acute febrile illness Atrial flutter Bilateral cellulitis of lower leg Cellulitis Diabetes mellitus Dystrophia unguium Fatigue Fever Infestation by fly larvae Lymphedema of both lower extremities Malaise Obesity with body mass index (BMI) of 30.0 to 39.9 Peripheral vascular disease Renal insufficiency Spinal stenosis of cervical region Spinal stenosis of lumbar region Systemic inflammatory response syndrome (SIRS) Ulcers of both lower extremities Uncontrolled diabetes mellitus History of left heart catheterization (LHC) Surgical History History of amputation H/O Spinal surgery Family History Mother Breast cancer Family history of myocardial infarction Social History Smoking Status: Never smoker alcohol intake: never substance use type: marijuana current occupational status: retired and disabled Travel in the last 8 weeks: None household members: family caffeine: No ROS Obtained: Yes All systems reviewed & no additional complaints except as documented Constitutional Constitutional: Denies chills, Denies fever(s), Denies headache(s), Reports malaise and Reports weakness (Generalized) Eyes Eyes: Denies change in vision ENT Ears, Nose, Mouth, and Throat: Denies dizziness, Denies headache(s), Denies nasal congestion and Denies sore throat Cardiovascular Cardiovascular: Denies chest pain, Denies dyspnea and Denies leg edema Respiratory Respiratory: Denies cough and Denies dyspnea Gastrointestinal Gastrointestingal: Reports abdominal pain (Left side/left flank); Denies constipation, diarrhea, nausea or vomiting Genitourinary Male Genitourinary: Denies difficulty urinating and Reports other (Dark urine, De [place] catheter in place) Musculoskeletal Musculoskeletal: Denies arthralgias, Denies myalgias, Denies numbness and Denies tingling Integumentary/Breasts Skin/Breast: Denies change in pigmentation Neurologic Neurologic: Denies dizziness, Denies headache(s), Denies numbness, Denies tingling and Reports weakness (Generalized) Physical Exam General General appearance: alert, in no apparent distress and other (Chronically ill- appearing) Head Head exam: atraumatic and normocephalic Eye Eye exam: Present PERRL and EOMI ENT ENT exam: Present mucous membranes moist Neck Neck exam: Present normal inspection and full ROM Chest Chest inspection: Present symmetric chest wall rise Respiratory Respiratory exam: Absent respiratory distress or stridor Cardiovascular Cardiovascular exam: Present regular rate and normal rhythm Abdominal Exam Abdominal exam: Present soft, tenderness (Left lateral abdomen) and guarding (Voluntary); Absent distention or rebound exam: Present other ([place] catheter in place draining cloudy appearing urine); Absent urethral discharge Extremities Exam Extremities exam: Present other (Right above-knee amputation, old. Left toe amputation, recent, sutures in place, wound appears clean, dry, compared to pictures from recent podiatry visit, similar appearing.); Absent tenderness or joint swelling Back Exam Back exam: Absent CVA tenderness (R) or CVA tenderness (L) Neurological Exam Neurological exam: Present alert and oriented X3; Absent motor sensory deficit Psychiatric Psychiatric exam: Present normal affect and normal mood Skin Skin exam: Present warm, dry and other (Approximately stage III decubitus ulcer on patient's sacral area. No induration) Medical Decision Making Medical Records Medical records reviewed: Yes I reviewed the patient's medical records. MR Comment: Most recent podiatry note demonstrates patient was evaluated for his recent left toe amputation. He has a history of vancomycin, meropenem, linezolid, Levaquin. Plan was for continued dressing changes twice weekly, Betadine soaked gauze, offload heel. Patient is not currently on any antibiotics Lex Inquiry Pt receiving controlled substance: No Vital Signs: 04/21/24 23:55 04/22/24 00:01 04/22/24 00:15 Temperature 97.7 F Temperature Source Oral Pulse Rate 101 H 94 H Pulse Rate [Right Brachial] 105 H Respiratory Rate 16 Blood Pressure Blood Pressure [Right Arm] 156/84 H Blood Pressure Mean Blood Pressure Mean [Right Arm] 108 Blood Pressure Source [Right Arm] Automatic Cuff Blood Pressure Position [Right Arm] Sitting 02 Sat by Pulse Oximetry 99 97 Oxygen Delivery Method Room Air 04/22/24 00:30 04/22/24 00:48 04/22/24 01:21 Temperature Temperature Source Pulse Rate 102 H 102 H Pulse Rate [Right Brachial] Respiratory Rate 20 Blood Pressure 142/77 H Blood Pressure [Right Arm] Blood Pressure Mean 98 Blood Pressure Mean [Right Arm] Blood Pressure Source [Right Arm] Blood Pressure Position [Right Arm] 02 Sat by Pulse Oximetry 98 Oxygen Delivery Method 04/22/24 01:21 04/22/24 03:00 04/22/24 03:31 Temperature Temperature Source Pulse Rate 99 H Pulse Rate [Right Brachial] Respiratory Rate Blood Pressure 140/72 129/72 Blood Pressure [Right Arm] Blood Pressure Mean 94 91 Blood Pressure Mean [Right Arm] Blood Pressure Source [Right Arm] Blood Pressure Position [Right Arm] 02 Sat by Pulse Oximetry 100 Oxygen Delivery Method Room Air 04/22/24 04:01 04/22/24 04:32 04/22/24 05:01 Temperature Temperature Source Pulse Rate 108 H 111 H Pulse Rate [Right Brachial] Respiratory Rate 14 17 Blood Pressure 137/78 114/56 L 130/61 Blood Pressure [Right Arm] Blood Pressure Mean 84 75 79 Blood Pressure Mean [Right Arm] Blood Pressure Source [Right Arm] Blood Pressure Position [Right Arm] 02 Sat by Pulse Oximetry 100 100 Oxygen Delivery Method Room Air 04/22/24 05:31 Temperature Temperature Source Pulse Rate Pulse Rate [Right Brachial] Respiratory Rate 14 Blood Pressure 109/65 L Blood Pressure [Right Arm] Blood Pressure Mean 73 Blood Pressure Mean [Right Arm] Blood Pressure Source [Right Arm] Blood Pressure Position [Right Arm] 02 Sat by Pulse Oximetry 100 Oxygen Delivery Method Room Air Lab Data Lab Results 04/22/24 00:17: WBC 7.0, RBC 4.01 L, Hgb 10.4 L, Hct 33.9 L, MCV 84.4, MCH 25.9 L, MCHC 30.6 L, RDW 17.6 H, Plt Count 301, MPV 8.7, Neut % (Auto) 69.0, Lymph % (Auto) 24.2, [place] % (Auto) 4.3, Eos % (Auto) 1.8, Baso % (Auto) 0.7, Neut # (Auto) 4.8, Lymph # (Auto) 1.7, [place] # (Auto) 0.3, Eos # (Auto) 0.1, Baso # (Auto) 0.1, PT 11.2, INR 1.00, Sodium 137, Potassium 4.0, Chloride 106, Carbon Dioxide 22, Anion Gap 13.0, BUN 20, Creatinine 0.90, Estimated Creat Clear 97, Estimated GFR 83, Est GFR ( Amer) 101, Glucose 124 H, Lactate 2.1, Calcium 9.3, Total Bilirubin 0.7, AST 25, ALT 21, Alkaline Phosphatase 104, Troponin I < 0.01, Total Protein 7.7 D, Albumin 3.8, Globulin 3.9 H, A lbumin/Globulin Ratio 1.0 L, Lipase 86 04/22/24 01:25: Urine Color Dark yellow, Urine Appearance Clear, Urine pH 8.0, Ur Specific [place] 1.015, Urine Protein Negative, Urine Glucose (UA) Negative, Urine Ketones Negative, Urine Blood Trace-i, Urine Nitrate Negative, Urine Bilirubin Negative, Urine Urobilinogen 0.2, Ur Leukocyte Esterase Negative, Urine RBC 5-10, Urine WBC 3-5, Ur Squamous Epith Cells Occasional, Urine Bacteria Trace 04/22/24 04:25: Troponin I < 0.01 04/22/24 05:17: Lactate 2.0 04/22/24 00:17 04/22/24 00:17 Orders (Tests/Meds): ED MEDICATIONS Generic Name Dose Route Start Last Admin Trade Name Freq PRN Reason Stop Dose Admin Amiodarone HCl 900 mg/ 518 mls @ 34.533 mls/hr 04/22/24 01:47 04/22/24 03:16 Dextrose IV 04/22/24 16:47 1 mg/min .Q15H1M DEEPTI 34.53 mls/hr Administration Protocol 1 MG/MIN Sodium Chloride 10 ml 04/22/24 03:55 04/22/24 03:57 Sodium Chloride 0.9% 10ml Syr (Rad Only) IV 05/22/24 03:54 10 ml NEEDED PRN Administration Maintain IV Site Discontinued Medications Generic Name Dose Route Start Last Admin Trade Name Freq PRN Reason Stop Dose Admin Albuterol/Ipratropium 6 ml 04/22/24 00:37 04/22/24 01:21 Ipratropium/Albuterol 3 Ml Neb 04/22/24 00:38 6 ml ONCE ONE Administration Amiodarone HCl 150 mg 04/22/24 01:46 04/22/24 01:55 Amiodarone Hcl 150mg/3ml Vial IVP 04/22/24 01:47 Not Given ONCE ONE Lactated Ringer's 1,000 mls @ 999 mls/hr 04/22/24 00:26 04/22/24 00:53 Lactated Ringer's 1000 Ml Bag IV 04/22/24 01:26 999 mls/hr .Q1H1M ONE Administration Amiodarone HCl 150 mg/ 103 mls @ 618 mls/hr 04/22/24 01:53 04/22/24 02:00 Dextrose IV 04/22/24 02:02 618 mls/hr ONCE ONE Administration Protocol Iopamidol 75 ml 04/22/24 03:55 04/22/24 03:56 Iopamidol-370 (76%);100ml Bottle IV 04/22/24 03:56 75 ml ONCE ONE Administration Metoprolol Succinate 25 mg 04/22/24 02:50 04/22/24 03:18 Metoprolol Succinate Xl 25mg Tablet PO 04/22/24 02:51 25 mg ONCE ONE Administration Ondansetron HCl 4 mg 04/22/24 00:26 04/22/24 00:53 Ondansetron 4mg/2ml Vial IV 04/22/24 00:27 4 mg ONCE ONE Administration ORDERS Category Date Time Status CT abdomen pelvis w con Stat Cat Scan 04/22/24 00:26 Taken CBC w/Auto Diff [Complete Blood Count Auto Diff] Stat Lab 04/22/24 00:17 Completed CMP [Comprehensive Metabolic Panel] Stat Lab 04/22/24 00:17 Completed Lactic Acid Follow Up (RFLX 1) Stat Lab 04/22/24 05:17 Completed Lactic Acid Stat Lab 04/22/24 00:17 Completed Lipase Stat Lab 04/22/24 00:17 Completed PT INR [Prothrombin Time INR] Stat Lab 04/22/24 00:17 Completed Trop I [Troponin I] Stat Lab 04/22/24 00:17 Completed Troponin I Q3H Lab 04/22/24 04:25 Completed Troponin I Q3H Lab 04/22/24 06:30 Ordered Urinalysis and Microscopic Stat Lab 04/22/24 01:25 Completed Medical Decision Narrative: In summary, this 69-year-old male presents to the emergency department today with generalized malaise, nausea, left flank pain. On initial evaluation patient is hemodynamically stable though he is slightly tachycardic, afebrile, lungs clear to auscultation bilaterally, abdominal exam notable for left lateral abdominal pain, patient has recent toe amputation, wound appears clean, dry, no purulent discharge or other findings of infection. Differential diagnosis includes but is not limited to urinary tract infection, pyelonephritis, kidney stone, bowel obstruction, colitis, viral syndrome, considered the possibility of systemic infection with the patient's recent foot surgery, however he does not have findings of active infection of the left foot and review of recent podiatry records demonstrates extensive antibiotics that have been completed. Based on these concerns, I ordered serum labs, CT imaging, De [place] exchange, urinalysis. ECG personally interpreted demonstrates sinus tachycardia, short MT, no delta wave, frequent PVCs, patient is having brief runs of V. tach, no STEMI. Patient received IV fluids and amiodarone for treatment. Labs personally reviewed demonstrate no leukocytosis, improving anemia compared to prior, PT/INR normal, CMP without significant kidney or liver dysfunction, initial troponin undetectably low, lactate 2.1, UA negative for findings of infection. Repeat troponin also undetectably low at less than 0.01 CT abdomen pelvis was performed and personally interpreted, I do not appreciate acute intra-abdominal pathology such as bowel obstruction, kidney stone, or inflammatory changes. Radiology read is pending at the time of admission. I discussed this case with Dr. Thapa given patient's frequent PVCs and runs of PVCs concerning for brief episodes of V. tach. He agrees with the amiodarone and recommended increasing patient's metoprolol to 50 mg. Since patient already took his 25 mg dose today, I gave him a 25 mg dose in the ER. Patient requires admission for continued management of arrhythmia which I believe is likely causing his symptoms of nausea and generalized malaise. I discussed this case with the hospitalist who accept the patient for admission. Critical Care Critical Care Time Critical Care Time: Yes Attestation: On 04/21/24, the high probability of a clinically significant, sudden or life threatening deterioration of the following system(s) (cardiac) required my full and direct attention, intervention and personal management. The time I documented below is in addition to time spent performing reported procedures but includes the following listed in this critical care notation. Total Time Total Critical Care Time: 40
[2024-04-22] MEDS: LACTATED RINGERS 1000ML 1,000 ML 999 ML IV (00:53)
[2024-04-22] MEDS: ONDANSETRON 4MG/2ML VIAL 4 MG IV ×2 (00:53→18:38)
[2024-04-22 00:54] LABS: Basophils # 0.1 K/mm3 (0-0.2); Basophils % 0.7 % (0.1-2.0); Eosinophils # 0.1 K/mm3 (0.0-0.4); Eosinophils % 1.8 % (0.1-12.0); Hematocrit 33.9 % (42.0-52.0); Hemoglobin 10.4 g/dL (14.1-18.0); Lymphocytes # 1.7 K/mm3 (0.7-4.5); Lymphocytes % 24.2 % (10-50); Mean Corpuscular HGB Conc 30.6 g/dL (31.8-35.4); Mean Corpuscular Hemoglobin 25.9 pg (27.0-31.2); Mean Corpuscular Volume 84.4 fl (80-94); Mean Platelet Volume 8.7 fl (7.4-10.4); Monocytes # 0.3 K/mm3 (0.1-1.0); Monocytes % 4.3 % (1.7-9.3); Neutrophils # 4.8 K/mm3 (1.8-7.8); Platelet Count 301 K/mm3 (142-424); Red Blood Count 4.01 M/mm3 (4.60-6.20); Red Cell Distribution Width 17.6 % (11.5-17.5)
[2024-04-22 01:00] LABS: Prothrombin Time 11.2 seconds (10.1-12.5)
[2024-04-22 01:01] LABS: Alanine Aminotransferase 21 U/L (12-78); Albumin Level 3.8 g/dl (3.5-5.0); Alkaline Phosphatase 104 U/L (38-126); Aspartate Amino Transferase 25 U/L (17-59); Bilirubin,Total 0.7 mg/dl (0.2-1.3); Blood Urea Nitrogen 20 mg/dl (9-20); Calcium 9.3 mg/dl (8.4-10.2); Carbon Dioxide 22 mmol/L (22.0-30.0); Chloride 106 mmol/L (98-107); Creatinine Clearance Estimated 97 mL/min (50-200); Estimated Glomerular Filt Rate 83 ml/min (>60); GFR (African American) 101 ML/MIN (>60); Globulin 3.9 g/dL (1.3-3.2); Glucose 124 mg/dl (74-100); Lipase 86 U/L (23-300); Sodium 137 mmol/L (136-145); Total Protein,Serum 7.7 g/dl (6.3-8.2)
--- NOTE | 2024-04-22 01:01 | PC.NURSE ---
Excoriation noted in bilat groins and on coccyx, open area to scrotum and coccyx, no drainage notes, Pt has healing surgical would to left foot from toes being removed, sutures still in place, no drainage noted
[2024-04-22 01:02] LABS: Lactic Acid 2.1 mmol/L (0.7-2.1)
--- NOTE | 2024-04-22 01:15 | PC.NURSE ---
Pt noted to have 5-6 beat runs of Vtach, provider aware
[2024-04-22 01:17] LABS: Troponin I < 0.01 ng/ml (0.00-0.034)
[2024-04-22] MEDS: IPRATROPIUM/ALBUTEROL 3 ML NEB 6 ML IH (01:21)
[2024-04-22 01:35] LABS: Microscopic, Urine URINE MICROSCOPIC (MICROSCOPIC)
[2024-04-22 01:46] LABS: Appearance,Urine CLEAR (Clear); Bilirubin,Urine Negative (Negative); Blood, Urine TRACE-I (Negative); Glucose,Urine (UA) Negative (Negative); Ketones,Urine Negative (Negative); Leukocyte Esterase,Urine Negative (Negative); Nitrate,Urine Negative (Negative); Protein,Urine Negative (Negative); Specific Gravity, Urine 1.015 (1.005-1.030); Urobilinogen,Urine 0.2 EU/dl (0.2)
[2024-04-22 01:48] LABS: Color,Urine Dark Yellow (Yellow)
--- NOTE | 2024-04-22 01:52 | PC.NURSE ---
IV access no nonger able to flush or no blood return, amniodarone paused, provider aware, will attempted US guided IV placement by provider
[2024-04-22] MEDS: AMIODARONE HCL 150 MG in DEXTROSE 5 % IN WATER 100 ML 618 MG IV (02:00)
[2024-04-22 02:13] LABS: Bacteria,Urine Trace /lpf; Squamous Epithelial Cell,Urine Occasional #/hpf (0-5)
--- NOTE | 2024-04-22 02:43 | PC.NURSE ---
paged dr jenkins for cards consult
--- NOTE | 2024-04-22 02:46 | PC.NURSE ---
speaking with dr jenkins
[2024-04-22] MEDS: AMIODARONE HCL 900 MG in DEXTROSE 5 % IN WATER 500 ML 34.53 MG IV (03:16)
[2024-04-22] MEDS: METOPROLOL SUCCINATE XL 25MG TABLET 25 MG PO (03:18)
--- NOTE | 2024-04-22 03:33 | PC.NURSE ---
Pt continues to be sinus tach with multiple PVCs, denies CP, SOA or N/V. Amnidarone continues to infuse
[2024-04-22] MEDS: IOPAMIDOL-370 (76%);100ML BOTTLE 75 ML IV (03:56)
[2024-04-22] MEDS: SODIUM CHLORIDE 0.9% 10ML SYR (RAD ONLY) 10 ML IV (03:57)
--- NOTE | 2024-04-22 04:22 | PC.NURSE ---
PT continuing to have runs of Vtach despite being on Amniodarone, provider aware, pt denies any CP
[2024-04-22 04:51] LABS: Reflex Lactic Add Lactic Reflex
[2024-04-22 05:02] LABS: Troponin I < 0.01 ng/ml (0.00-0.034)
--- NOTE | 2024-04-22 05:46 | PC.NURSE ---
SPEAKING WITH HOSPITALIST
--- NOTE | 2024-04-22 05:48 | PC.NURSE ---
CONTACTED HOUSE FOR ADMIT, DX: ARRHYTHMIA, HOSPITALIST
[2024-04-22] MEDS: MORPHINE 4MG/ML SYRINGE 4 MG IV ×3 (07:19→20:50)
[2024-04-22 07:43] LABS: Troponin I < 0.01 ng/ml (0.00-0.034)
[2024-04-22] MEDS: PANTOPRAZOLE 40MG TABLET 40 MG PO (08:53)
--- NOTE | 2024-04-22 10:03 | HMH.PHAINT1 ---
Pharmacy Intervention Comments: MEDICATION RECONCILIATION COMPLETE USING MOST RECENT HOSPITAL DISCHARGE LIST (03/2024), RECENT MD OFFICE VISIT (PODIATRY 04/17/24) AND EXTERNAL PHARMACY FILL HISTORY.
[2024-04-22] MEDS: humaLOG 100 UNITS/ML 10ML VIAL (SSI) SQ ×3 (11:06→20:35)
[2024-04-22] MEDS: AMIODARONE HCL 900 MG in DEXTROSE 5 % IN WATER 500 ML 17.27 MG IV (15:10)
--- NOTE | 2024-04-22 16:29 | P.HP_ITS ---
History of Present Illness *Admission Date: 04/22/24 *Reason for visit:: Leg pain *History of present illness: Patient is a 69-year-old male with past medical history of diabetes mellitus morbid obesity, peripheral artery disease who presents to the hospital due to not feeling well. According the patient he has been having nausea vomiting for past 3 to 4 days, it is not improving. Patient also mentions he has been feeling tired fatigue. He has no appetite he has been feeling ill. Patient otherwise denied chest pain, fevers chills. He also denies shortness of breath normally does not walk he recently had foot surgery by podiatry for toe amputations. On further evaluation patient was found to have PVCs and tachycardia, was admitted for cardiology evaluation. [facility] Disclaimer: The information contained in this section may have been updated after the patient was seen, as this information can be updated by other users. Medical History Seizure CAD in [place] artery Acute febrile illness Atrial flutter Bilateral cellulitis of lower leg Cellulitis Diabetes mellitus Dystrophia unguium Fatigue Fever Infestation by fly larvae Lymphedema of both lower extremities Malaise Obesity with body mass index (BMI) of 30.0 to 39.9 Peripheral vascular disease Renal insufficiency Spinal stenosis of cervical region Spinal stenosis of lumbar region Systemic inflammatory response syndrome (SIRS) Ulcers of both lower extremities Uncontrolled diabetes mellitus History of left heart catheterization (LHC) Surgical History History of amputation H/O Spinal surgery Family History Mother Breast cancer Family history of myocardial infarction Social History (Updated 04/22/24 @ 07:01 by Gill Peter RN) Smoking Status: Never smoker alcohol intake: never substance use type: marijuana current occupational status: retired and disabled Travel in the last 8 weeks: None household members: family caffeine: No Review of Systems Review of Systems Review of systems:: pertinent systems reviewed and negative unless documented below Constitutional Constitutional: Denies headache(s) and Reports weakness (Generalized) ENT Ears, Nose, Mouth, and Throat: Denies dizziness and Denies headache(s) *Musculoskeletal Musculoskeletal: Denies numbness and Denies tingling *Neurologic Neurologic: Denies dizziness, Denies headache(s), Denies numbness, Denies tingling and Reports weakness (Generalized) Meds Home Medications and Allergies Home Medications ?Medication ?Instructions ?Recorded ?Confirmed ?Type aspirin 81 mg tablet,delayed 81 mg PO DAILY 04/20/23 04/22/24 History release buspirone 5 mg tablet 5 mg PO TID 04/20/23 04/22/24 History furosemide 40 mg tablet 40 mg PO DAILY Fluid 04/20/23 04/22/24 History lamotrigine 100 mg tablet 100 mg PO BID 04/20/23 04/22/24 History lamotrigine 150 mg tablet 150 mg PO HS Seizures 04/21/23 04/22/24 History insulin glargine 100 unit/mL (3 42 unit SQ HS 06/04/23 04/22/24 History mL) subcutaneous pen (Lantus Solostar U-100 Insulin) clopidogrel 75 mg tablet (Plavix) 75 mg PO DAILY #30 tabs 06/08/23 04/22/24 Rx metoprolol succinate 25 mg 25 mg PO DAILY #30 tabs 06/08/23 04/22/24 Rx tablet,extended release 24 hr atorvastatin 40 mg tablet 40 mg PO DAILY 03/03/24 04/22/24 History pantoprazole 40 mg tablet,delayed 40 mg PO DAILY 03/03/24 04/22/24 History release metoclopramide HCl 5 mg tablet 5 mg PO BID 03/27/24 04/22/24 History gabapentin 100 mg capsule 200 mg (2 x 100 mg) PO TID 30 days 04/01/24 04/22/24 Rx #180 caps linezolid 600 mg tablet (Zyvox) 600 mg PO Q12H 14 days #28 tabs 04/10/24 04/22/24 Rx baclofen 10 mg tablet 10 mg PO BIDP PRN Muscle Spasm 04/22/24 04/22/24 History sennosides 8.6 mg-docusate sodium 1 tab PO BID 04/22/24 04/22/24 History 50 mg tablet (Stimulant Laxative Plus) New Prescriptions to Start Prescriptions: Allergies Allergy/AdvReac Type Severity Reaction Status Date / Time hydrocodone [From [facility]] Allergy Unknown NA-NAUSEA/V Verified 04/22/24 00:02 OMITING codeine Allergy Verified 04/22/24 00:02 levetiracetam [From [facility]] Allergy Verified 04/22/24 00:02 tramadol AdvReac Unknown Verified 04/22/24 00:02 allergy reaction Exam Data for Last 24 hours Vital signs and Labs for Last 24 Hours: Temp Pulse Resp BP Pulse Ox O2 Del Method 98.3 F 90 20 114/63 96 Room Air 04/22/24 16:00 04/22/24 16:00 04/22/24 14:00 04/22/24 14:00 04/22/24 14:00 04/22/24 14:00 Laboratory Results - last 24 hr 04/22/24 00:17: WBC 7.0, RBC 4.01 L, Hgb 10.4 L, Hct 33.9 L, MCV 84.4, MCH 25.9 L, MCHC 30.6 L, RDW 17.6 H, Plt Count 301, MPV 8.7, Neut % (Auto) 69.0, Lymph % (Auto) 24.2, [place] % (Auto) 4.3, Eos % (Auto) 1.8, Baso % (Auto) 0.7, Neut # (Auto) 4.8, Lymph # (Auto) 1.7, [place] # (Auto) 0.3, Eos # (Auto) 0.1, Baso # (Auto) 0.1, PT 11.2, INR 1.00, Sodium 137, Potassium 4.0, Chloride 106, Carbon Dioxide 22, Anion Gap 13.0, BUN 20, Creatinine 0.90, Estimated Creat Clear 97, Estimated GFR 83, Est GFR ( Amer) 101, Glucose 124 H, Lactate 2.1, Calcium 9.3, Total Bilirubin 0.7, AST 25, ALT 21, Alkaline Phosphatase 104, Troponin I < 0.01, Total Protein 7.7 D, Albumin 3.8, Globulin 3.9 H, Albumin/Globulin Ratio 1.0 L, Lipase 86 04/22/24 01:25: Urine Color Dark yellow, Urine Appearance Clear, Urine pH 8.0, Ur Specific [place] 1.015, Urine Protein Negative, Urine Glucose (UA) Negative, Urine Ketones Negative, Urine Blood Trace-i, Urine Nitrate Negative, Urine Bilirubin Negative, Urine Urobilinogen 0.2, Ur Leukocyte Esterase Negative, Urine RBC 5-10, Urine WBC 3-5, Ur Squamous Epith Cells Occasional, Urine Bacteria Trace 04/22/24 04:25: Troponin I < 0.01 04/22/24 05:17: Lactate 2.0 04/22/24 07:05: Troponin I < 0.01 I & O for Last 24 hours: Intake & Output 04/19/24 04/20/24 04/21/24 04/22/24 23:59 23:59 23:59 23:59 Intake Total 1047.756 / 1047.756 Output Total 750 / 750 Balance 297.756 / 297.756 Weight 99.79 kg Constitutional Constitutional: no acute distress *Routine HEENT Exam Head: Present normocephalic Eye: Present EOMI and PERRL ENT: Present mucous membranes moist *Routine Neck Exam Neck: Present supple; Absent lymphadenopathy *Routine Respiratory Exam Respiratory: Present CTA bilaterally *Routine Cardiovascular Exam Cardiovascular: Present RRR *Routine Abdominal Exam Abdominal: Present soft and normoactive bowel sounds; Absent tenderness *Routine Rectal Exam Rectal:: deferred *Routine Genitalia Exam Genitalia:: deferred *Routine Extremities Exam Extremities: Absent cyanosis, clubbing or edema Comments: RLE amputated and LLR metatarsal amputation *Routine Skin Exam Skin: Present warm; Absent rash *Routine Neurological Exam Neurological: Present alert and oriented X3 Assessment and Plan *Assessment and plan (1) Nausea: Status: Acute Category: Medical Code(s): R11.0 - Nausea (2) Arrhythmia: Status: Acute Category: Medical Code(s): I49.9 - Cardiac arrhythmia, unspecified (3) Diabetic ulcer of left heel associated with diabetes mellitus due to underlying condition, limited to breakdown of skin: Status: Acute Category: Medical Code(s): E08.621 - Diabetes mellitus due to underlying condition with foot ulcer; L97.421 - Non-pressure chronic ulcer of left heel and midfoot limited to breakdown of skin (4) S/P transmetatarsal amputation of foot: Status: Acute Qualifiers: Laterality: left Qualified Code(s): Z89.432 - Acquired absence of left foot Category: Surgical Code(s): Z89.439 - Acquired absence of unspecified foot (5) HLD (hyperlipidemia): Status: Chronic Qualifiers: Hyperlipidemia type: mixed hyperlipidemia Qualified Code(s): E78.2 - Mixed hyperlipidemia Category: Medical Code(s): E78.5 - Hyperlipidemia, unspecified (6) HTN (hypertension): Status: Chronic Qualifiers: Hypertension type: primary hypertension Qualified Code(s): I10 - Essential (primary) hypertension Category: Medical Code(s): I10 - Essential (primary) hypertension (7) Debility: Status: Acute Category: Medical Code(s): R53.81 - Other malaise (8) PVD (peripheral vascular disease): Status: Acute Category: Medical Code(s): I73.9 - Peripheral vascular disease, unspecified Plan Patient is a 69-year-old male with past medical history of diabetes mellitus morbid obesity, peripheral artery disease who presents to the hospital due to not feeling well. According the patient he has been having nausea vomiting for past 3 to 4 days, it is not improving. Patient also mentions he has been feeling tired fatigue. He has no appetite he has been feeling ill. Patient otherwise denied chest pain, fevers chills. He also denies shortness of breath normally does not walk he recently had foot surgery by podiatry for toe amputations. On further evaluation patient was found to have PVCs and tachycardia, was admitted for cardiology evaluation. Assessment and plan Fatigue, nausea likely secondary to arrhythmia, PVCs CAD Started on IV amiodarone Monitor on cardiac telemetry Check a level, magnesium level Monitor and replace electrolytes Resume home aspirin, statin L Foot cellulitis continue home linezolid 600 BID scheduled for 14 days from Diabetes mellitus Insulin sliding scale HTN HLD - resume home meds DVT PPx - lovenox
[2024-04-22 16:30] LABS: POC Glucose,Bedside 151 (70-110)
--- NOTE | 2024-04-22 16:57 | PC.NURSE ---
VS stable, Amio drip 17.3 ml and to be continued throughout the night per md. Patient alert and oriented and able to shift self in bed several times this shift. Lung sounds clear. Sinus tachycardia with frequent pvc's on monitor and 2-3 beat runs on vtach noted occasionally. Patient states he feels tired and weak but better than admission. [place] in place and catheter care performed this shift.
[2024-04-22] MEDS: lamoTRIgine 100MG TABLET 100 MG PO (20:32)
[2024-04-22] MEDS: INSULIN GLARGINE 100 UNITS/ML 3ML FLEXPEN 42 UNIT SQ (20:33)
[2024-04-22] MEDS: SENNOSIDES 8.6MG/DOCUSATE 50MG TABLET 1 TAB PO (20:33)
[2024-04-22] MEDS: GABAPENTIN 100MG CAPSULE 200 MG PO (20:33)
[2024-04-22 20:36] LABS: POC Glucose,Bedside 173 (70-110)
[2024-04-22 20:36] LABS: POC Glucose,Bedside 201 (70-110)
[2024-04-22] MEDS: BUSPIRONE HCL 5 MG TABLET PO (20:36)
[2024-04-22] MEDS: LAMOTRIGINE 150 MG 150 EACH PO (20:37)
[2024-04-22] MEDS: METOCLOPRAMIDE 5MG TABLET 5 MG PO (20:38)
[2024-04-22] MEDS: LINEZOLID 600 MG 600 EACH PO (20:41)
[2024-04-23] VITALS (9 sets, daily range): BP systolic 109–128; BP diastolic 55–76; PULSE 70–90; RESP 14–22; TEMP 36.5–36.8; O2SAT 89–97; BMI 29.7
[2024-04-23] MEDS: MORPHINE 4MG/ML SYRINGE 4 MG IV ×2 (05:13→19:57)
[2024-04-23 07:36] LABS: Basophils % 0.7 % (0.1-2.0); Eosinophils # 0.3 K/mm3 (0.0-0.4); Eosinophils % 4.5 % (0.1-12.0); Hematocrit 29.2 % (42.0-52.0); Hemoglobin 9.1 g/dL (14.1-18.0); Lymphocytes # 1.6 K/mm3 (0.7-4.5); Lymphocytes % 25.6 % (10-50); Mean Corpuscular Hemoglobin 26.2 pg (27.0-31.2); Mean Corpuscular Volume 84.3 fl (80-94); Mean Platelet Volume 8.2 fl (7.4-10.4); Monocytes # 0.4 K/mm3 (0.1-1.0); Monocytes % 5.9 % (1.7-9.3); Neutrophils # 3.9 K/mm3 (1.8-7.8); Neutrophils % 63.4 % (37.0-80.0); Platelet Count 221 K/mm3 (142-424); Red Blood Count 3.46 M/mm3 (4.60-6.20); Red Cell Distribution Width 17.5 % (11.5-17.5); White Blood Count 6.1 K/mm3 (4.8-10.8)
[2024-04-23 07:41] LABS: Albumin Level 3.2 g/dl (3.5-5.0); Chloride 107 mmol/L (98-107); Sodium 135 mmol/L (136-145)
[2024-04-23 07:44] LABS: Alanine Aminotransferase 13 U/L (12-78); Alkaline Phosphatase 96 U/L (38-126); Aspartate Amino Transferase 18 U/L (17-59); Bilirubin,Total 0.5 mg/dl (0.2-1.3); Blood Urea Nitrogen 21 mg/dl (9-20); Carbon Dioxide 23 mmol/L (22.0-30.0); Creatinine Clearance Estimated 97 mL/min (50-200); Estimated Glomerular Filt Rate 74 ml/min (>60); GFR (African American) 89 ML/MIN (>60); Globulin 3.1 g/dL (1.3-3.2); Glucose 114 mg/dl (74-100); Total Protein,Serum 6.3 g/dl (6.3-8.2)
[2024-04-23 07:45] LABS: Magnesium 1.8 mg/dl (1.6-2.3)
--- NOTE | 2024-04-23 08:58 | PC.NURSE ---
Dressing changed on coccyx, wound packed with kerlix and covered with new mepelex
[2024-04-23] MEDS: METOCLOPRAMIDE 5 MG 1 EACH PO ×2 (09:52→16:18)
[2024-04-23] MEDS: PT OWN MED *ATORVASTATIN 40 MG TAB 1 EACH PO (09:52)
[2024-04-23] MEDS: PT OWN MED *ASPIRIN 81 MG EC TAB 1 EACH PO (09:52)
[2024-04-23] MEDS: PANTOPRAZOLE 40 MG 1 EACH PO (09:52)
[2024-04-23] MEDS: LAMOTRIGINE 100 MG 1 EACH PO ×2 (09:53→21:03)
[2024-04-23] MEDS: FUROSEMIDE 40 MG 1 EACH PO (09:53)
[2024-04-23] MEDS: LINEZOLID 600 MG 1 EACH PO ×2 (09:53→21:05)
[2024-04-23] MEDS: GABAPENTIN 100MG CAPSULE 200 MG PO ×3 (09:54→21:05)
[2024-04-23] MEDS: METOPROLOL SUCCINATE XL 25MG TABLET 25 MG PO (09:54)
[2024-04-23] MEDS: CLOPIDOGREL 75MG TAB 75 MG PO (09:55)
--- OUTSIDE RECORDS SUMMARY | 2024-04-23 10:16 | XMS_ITS ---
Author Organization [facility] Address [address] [facility] [address] [place] [address] Phone Care Team Providers Care Quality System Manager Name Role Phone Mckenna MURILLO, Britton Molina Unavailable [phone] [ ] Conditions or Problems No information [...]
--- OUTSIDE RECORDS SUMMARY | 2024-04-23 10:16 | XMS_ITS ---
Author Organization [facility] Address [address] [place] [address] Phone Care Team Providers Care Director Pharmacovigilance Name Role Phone Mckenna MURILLO, Britton Clifford [ ] Conditions or Problems No information available. Medications Medication Instructions Start Date Stop Date Generic Name [facility] Provider ATORVASTATIN CALCIUM 40 MG TABS Take 2 tablet by mouth every night atorvastatin [id number] Daria Minor METFORMIN HCL 500 MG TABS Take 2 tablet by mouth twice a day metformin 73486256175 Daria Minor CLOPIDOGREL BISULFATE 75 MG TABS Take 1 tablet by mouth once a day clopidogrel 57349238320 Daria Minor PEG 3350 17 GM PACK Take 17 gram by mouth once a day as needed polyethylene glycol 3350 60470131739 Daria Minor LAMOTRIGINE 100 MG TABS Take 1 tablet by mouth every morning lamotrigine 15786140537 Daria Minor FINASTERIDE 5 MG TABS Take 1 tablet by mouth once a day finasteride 15719389116 Daria Minor DOCUSATE SODIUM 250 MG CAPS Take 1 capsule by mouth twice a day docusate sodium 00215284133 Daria Minor ASPIRIN 81 MG TBEC Take 1 tablet by mouth once a day aspirin 51893845109 Daria Minor FUROSEMIDE 40 MG TABS Take 1 tablet by mouth once a day furosemide 07973360901 Daria Minor Thera M Plus (ferrous fumarat) 9 mg iron-400 mcg tablet Take 1 tablet by mouth once a day necdpazl-brqf-c c-fourwix-juqx 47574451379 Daria Minor FERROUS SULFATE 325 (65 Fe) MG TABS Take 1 tablet by mouth every morning ferrous sulfate 89704506869 Daria Minor LAMOTRIGINE 25 MG TABS Take 10 tablet by mouth every night lamotrigine 78671314516 Daria Garcia BACLOFEN 20 MG TABS Take 1 tablet by mouth as needed baclofen 65705241628 Daria Garcia TAMSULOSIN HCL 0.4 MG CAPS Take 2 capsule by mouth once a day tamsulosin 60924678309 Daria Garcia DIAZEPAM 2 MG TABS Take 1 tablet by mouth twice a day as needed diazepam 07266238420 Daria Garcia LOSARTAN POTASSIUM 50 MG TABS Take 1 tablet by mouth once a day losartan 09381711358 Daria Minor BUSPIRONE HCL 5 MG TABS Take 1 tablet by mouth three times a day buspirone 32411396720 Daria Jose METOPROLOL SUCCINATE ER 25 MG IN18K-STA Take 1 tablet by mouth once a day metoprolol succinate 98051564538 Daria Garcia ubrogepant Take 1 tablet by mouth once a day as needed UBRELVY Daria Garcia GLIPIZIDE 5 MG TABS Take 1 tablet by mouth twice a day glipizide 35114567822 Daria Garcia Medications Administered No information available. [...]
--- OUTSIDE RECORDS SUMMARY | 2024-04-23 10:16 | XMS_ITS ---
Author Organization [facility] Address [address] [place] [address] Phone Care Team Providers Care Wall Worker Name Role Phone Roberto Bonilla Unavailable Unavailable Conditions or Problems No information available. Medications Medication Instructions Start Date Stop Date Generic Name [facility] Provider DOXYCYCLINE HYCLATE 100 MG CAPS Take 1 capsule by mouth 2 (Two) Times a Day for 10 days. 1 doxycycline hyclate [id number] QIE qieuser AMOXICILLIN-POT CLAVULANATE 875-125 MG TABS 1 {tbl} Oral 1 amoxicillin-po t clavulanate 31510663778 QIE qieuser Medications Administered No information available. Allergies, Adverse Reactions, Alerts No information available. Results No information available. Plan of Care No information available. Procedures No information available. Vital Signs No information available. Immunizations No information available. Advance Directives No information available.
--- OUTSIDE RECORDS SUMMARY | 2024-04-23 10:16 | XMS_ITS ---
Author Organization [facility] Address [address] [place] [address] Phone Care Team Providers Care Bingo Clerk Name Role Phone Daria Garcia Unavailable Unavailable Conditions or Problems No information available. Medications Medication Instructions Start Date Stop Date Generic Name ND Provider ubrogepant Take 1 tablet by mouth Daily As Needed. UBRELVY QIE qieuser TAMSULOSIN HCL 0.4 MG CAPS Take 2 capsules by mouth Daily. tamsulosin 02245773730 QIE qieuser PEG 3350 17 GM PACK Take 17 g by mouth Daily As Needed. polyethylene glycol 3350 [id number] QIE qieuser Thera M Plus (ferrous fumarat) 9 mg iron-400 mcg tablet Take 1 tablet by mouth Daily. uspatkjr-bqpu-v t-jrifmxy-kbns 66322690635 QIE qieuser METOPROLOL SUCCINATE ER 25 MG [id number] Take 1 tablet by mouth Daily. metoprolol succinate 31008656065 QIE qieuser METFORMIN HCL 500 MG TABS Take 2 tablets by mouth 2 (Two) Times a Day With Meals. metformin 25520074803 QIE qieuser LOSARTAN POTASSIUM 50 MG TABS Take 1 tablet by mouth Daily. losartan 68522209662 QIE qieuser LAMOTRIGINE 25 MG TABS Take 10 tablets by mouth Every Night. lamotrigine 71071222385 QIE qieuser LAMOTRIGINE 100 MG TABS Take 1 tablet by mouth Every Morning. lamotrigine 06831916856 QIE qieuser GLIPIZIDE 5 MG TABS Take 1 tablet by mouth 2 (Two) Times a Day Before Meals. glipizide 74258811867 QIE qieuser FUROSEMIDE 40 MG TABS Take 1 tablet by mouth Daily. furosemide 51695645185 QIE qieuser FINASTERIDE 5 MG TABS Take 1 tablet by mouth Daily. finasteride 57248047897 QIE qieuser FERROUS SULFATE 325 (65 Fe) MG TABS Take 1 tablet by mouth Daily With Breakfast. ferrous sulfate 45010926914 QIE qieuser DOXYCYCLINE HYCLATE 100 MG CAPS Take 1 capsule by mouth 2 (Two) Times a Day for 7 days. doxycycline hyclate 46041417158 QIE qieuser DOCUSATE SODIUM 250 MG CAPS Take 1 capsule by mouth 2 (Two) Times a Day. docusate sodium 03243066947 QIE qieuser DIAZEPAM 2 MG TABS Take 1 tablet by mouth 2 (Two) Times a Day As Needed for Anxiety. diazepam 58213090295 QIE qieuser CLOPIDOGREL BISULFATE 75 MG TABS Take 1 tablet by mouth Daily. clopidogrel 78734397690 QIE qieuser BUSPIRONE HCL 5 MG TABS Take 1 tablet by mouth 3 (Three) Times a Day. buspirone 50076681378 QIE qieuser BACLOFEN 20 MG TABS Take 1 tablet by mouth As Needed for Muscle Spasms. baclofen 66724821078 QIE qieuser ATORVASTATIN CALCIUM 40 MG TABS Take 2 tablets by mouth Every Night. atorvastatin 75521326913 QIE qieuser ASPIRIN 81 MG TBEC Take 1 tablet by mouth Daily. OTC aspirin 30319807883 QIE qieuser AMOXICILLIN-POT CLAVULANATE 875-125 MG TABS Take 1 tablet by mouth 2 (Two) Times a Day for 7 days. amoxicillin-pot clavulanate 75748304460 QIE qieuser Medications Administered No information available. Allergies, Adverse Reactions, Alerts No information available. Results No information available. Plan of Care No information available. Procedures No information available. Vital Signs No information available. Immunizations No information available. Advance Directives No information available.
--- OUTSIDE RECORDS SUMMARY | 2024-04-23 10:16 | XMS_ITS | Clinical Summary ---
Author Organization [facility] Address [address] [place] [address] Phone Care Team Providers Care Rubber Calender Helper Name Role Phone Cecil Griffin MD Unavailable [phone] Conditions or Problems Problem Name Problem Code Onset Date Status Entry Date Provider Comment Standard Description Annotate DM Non-pressure chronic ulcer of left heel, black/dry (document depth) 884391582 (SNOMED CT) 09/19 Active 09/19 Crys Alfredo Chronic ulcer of foot Infection, local skin/subcuta neous tissue 600910831 (SNOMED CT) 09/19 Active 09/19 Crys Alfredo Localized infection of skin AND/OR subcutaneous tissue Gangrene with DM II PVD 52042415 (SNOMED CT) 09/19 Active 09/19 Crys Alfredo Type 2 diabetes mellitus DM II with diabetic PVD 691410518 (SNOMED CT) Active Crys Alfredo Peripheral vascular disease Diabetes mellitus, type II with peripheral vascular disorder, with gangrene 413676643 (SNOMED CT) Resolved Crys Alfredo Peripheral circulatory disorder due to type 2 diabetes mellitus Presence of ambrose catheter 414156896 (SNOMED CT) Resolved Crys Alfredo Urinary catheter in situ Benign Essential Hypertension 06147294 (SNOMED CT) Active Crys Alfredo Benign hypertension DM II with diabetic polyneuropat hy E11.42 (ICD-10-CM) Active Crys Alfredo Type 2 diabetes mellitus with diabetic polyneuropathy Other obesity due to excess calories 242887090 (SNOMED CT) Active Myranda Zelaya Simple obesity Presence of ambrose catheter 610055501 (SNOMED CT) Removed Bibi Edelen Urinary catheter in situ Pressure ulcer of left buttock, stage 1 12530533627 514342 (SNOMED CT) Active Bibi Edelen Pressure injury of buttock stage I Pressure ulcer of right buttock, stage 1 89733418378 107 (SNOMED CT) Active Bibi Edelen Pressure injury of right buttock stage I Cellulitis of left lower limb 242920768 (SNOMED CT) Active Bibi Edelen Cellulitis of leg, excluding foot Diabetes mellitus, type II with peripheral vascular disorder, with gangrene 818486867 (SNOMED CT) Removed Bibi Edelen Peripheral circulatory disorder due to type 2 diabetes mellitus Hx of DVT 036730511 (SNOMED CT) Active Bibi Edelen History of deep vein thrombosis Amputation of right leg above knee 284336293 (SNOMED CT) Active Bibi Edelen Amputated above knee Diabetes mellitus, type II with peripheral vascular disorder, without gangrene 118574139 (SNOMED CT) Inactive Bibi Edelen Peripheral circulatory disorder due to type 2 diabetes mellitus Diabetes mellitus, type II with peripheral neuropathy 88637525677 07 (SNOMED CT) Inactive Bibi Edelen Peripheral neuropathy due to type 2 diabetes mellitus Hypertension 14413258 (SNOMED CT) Inactive Bibi Edelen Hypertensive disorder Medications Medication Instructions Start Date Stop Date Generic Name NDC Provider DOXYCYCLINE HYCLATE 100 MG CAPS Take 1 capsule by mouth 2 (Two) Times a Day for 10 days. doxycycline hyclate 22242097976 QIE qieuser AMOXICILLIN-POT CLAVULANATE 875-125 MG TABS 1 {tbl} Oral amoxicillin-pot clavulanate 01824255199 QIE qieuser ATORVASTATIN CALCIUM 40 MG TABS Take 2 tablet by mouth every night atorvastatin 86375059546 Daria Minor METFORMIN HCL 500 MG TABS Take 2 tablet by mouth twice a day metformin 97631265685 Daria Minor CLOPIDOGREL BISULFATE 75 MG TABS Take 1 tablet by mouth once a day clopidogrel 54554962280 Daria Minor PEG 3350 17 GM PACK Take 17 gram by mouth once a day as needed polyethylene glycol 3350 79395855293 Daria Minor LAMOTRIGINE 100 MG TABS Take 1 tablet by mouth every morning lamotrigine 02495472265 Daria Minor FINASTERIDE 5 MG TABS Take 1 tablet by mouth once a day finasteride 65273334571 Daria Minor DOCUSATE SODIUM 250 MG CAPS Take 1 capsule by mouth twice a day docusate sodium 39857262755 Daria Minor ASPIRIN 81 MG TBEC Take 1 tablet by mouth once a day aspirin 24941929148 Daria Minor FUROSEMIDE 40 MG TABS Take 1 tablet by mouth once a day furosemide 02796820084 Daria Minor Thera M Plus (ferrous fumarat) 9 mg iron-400 mcg tablet Take 1 tablet by mouth once a day siovmzgj-qnmz-f u-kugprai-abkx 17350862905 Daria Minor FERROUS SULFATE 325 (65 Fe) MG TABS Take 1 tablet by mouth every morning ferrous sulfate 52405063158 Daria Minor LAMOTRIGINE 25 MG TABS Take 10 tablet by mouth every night lamotrigine 74082044039 Daria Minor BACLOFEN 20 MG TABS Take 1 tablet by mouth as needed baclofen 20349796877 Daria Minor TAMSULOSIN HCL 0.4 MG CAPS Take 2 capsule by mouth once a day tamsulosin 40068574105 Daria Minor DIAZEPAM 2 MG TABS Take 1 tablet by mouth twice a day as needed diazepam 82888208484 Daria Minor LOSARTAN POTASSIUM 50 MG TABS Take 1 tablet by mouth once a day losartan 65664556190 Daria Minor BUSPIRONE HCL 5 MG TABS Take 1 tablet by mouth three times a day buspirone 07233114326 Daria Minor METOPROLOL SUCCINATE ER 25 MG [id number] Take 1 tablet by mouth once a day metoprolol succinate 66781137270 Daria Minor ubrogepant Take 1 tablet by mouth once a day as needed UBRELVY Daria Minor GLIPIZIDE 5 MG TABS Take 1 tablet by mouth twice a day glipizide 74261592594 Daria Minor ubrogepant Take 1 tablet by mouth Daily As Needed. UBRELVY QIE qieuser TAMSULOSIN HCL 0.4 MG CAPS Take 2 capsules by mouth Daily. tamsulosin 45304844410 QIE qieuser PEG 3350 17 GM PACK Take 17 g by mouth Daily As Needed. polyethylene glycol 3350 75881831442 QIE qieuser Thera M Plus (ferrous fumarat) 9 mg iron-400 mcg tablet Take 1 tablet by mouth Daily. uivqrmdp-whus-a g-tggpzko-rysg 57587887068 QIE qieuser METOPROLOL SUCCINATE ER 25 MG ON93P-ERM Take 1 tablet by mouth Daily. metoprolol succinate 34403265687 QIE qieuser METFORMIN HCL 500 MG TABS Take 2 tablets by mouth 2 (Two) Times a Day With Meals. metformin 63419207210 QIE qieuser LOSARTAN POTASSIUM 50 MG TABS Take 1 tablet by mouth Daily. losartan 59702788900 QIE qieuser LAMOTRIGINE 25 MG TABS Take 10 tablets by mouth Every Night. lamotrigine 03624968336 QIE qieuser LAMOTRIGINE 100 MG TABS Take 1 tablet by mouth Every Morning. lamotrigine 79184738756 QIE qieuser GLIPIZIDE 5 MG TABS Take 1 tablet by mouth 2 (Two) Times a Day Before Meals. glipizide 07990987349 QIE qieuser FUROSEMIDE 40 MG TABS Take 1 tablet by mouth Daily. furosemide 26035242170 QIE qieuser FINASTERIDE 5 MG TABS Take 1 tablet by mouth Daily. finasteride 97700357962 QIE qieuser FERROUS SULFATE 325 (65 Fe) MG TABS Take 1 tablet by mouth Daily With Breakfast. ferrous sulfate 00267962827 QIE qieuser DOXYCYCLINE HYCLATE 100 MG CAPS Take 1 capsule by mouth 2 (Two) Times a Day for 7 days. doxycycline hyclate 13672232901 QIE qieuser DOCUSATE SODIUM 250 MG CAPS Take 1 capsule by mouth 2 (Two) Times a Day. docusate sodium 42109433386 QIE qieuser DIAZEPAM 2 MG TABS Take 1 tablet by mouth 2 (Two) Times a Day As Needed for Anxiety. diazepam 00111682075 QIE qieuser CLOPIDOGREL BISULFATE 75 MG TABS Take 1 tablet by mouth Daily. clopidogrel 75558194848 QIE qieuser BUSPIRONE HCL 5 MG TABS Take 1 tablet by mouth 3 (Three) Times a Day. buspirone 54540868866 QIE qieuser BACLOFEN 20 MG TABS Take 1 tablet by mouth As Needed for Muscle Spasms. baclofen 24179666283 QIE qieuser ATORVASTATIN CALCIUM 40 MG TABS Take 2 tablets by mouth Every Night. atorvastatin 10303639441 QIE qieuser ASPIRIN 81 MG TBEC Take 1 tablet by mouth Daily. OTC aspirin 22168563546 QIE qieuser AMOXICILLIN-POT CLAVULANATE 875-125 MG TABS Take 1 tablet by mouth 2 (Two) Times a Day for 7 days. amoxicillin-pot clavulanate 55605791470 QIE qieuser Medications Administered No information available. [...] Report: ECG 12-LEAD [id number] 01/15/24 1524 GE e only - for [employer] import when [...]
[2024-04-23] MEDS: humaLOG 100 UNITS/ML 10ML VIAL (SSI) SQ ×2 (11:47→20:54)
[2024-04-23] MEDS: ONDANSETRON 4MG/2ML VIAL 4 MG IV (15:22)
--- NOTE | 2024-04-23 15:27 | PC.NURSE ---
Amio drip turned off per Dr. Glez, patient to start po amio tonight. Verified with Dr. Glez. VS stable and patient remained on room air. NSR on monitor with frequent pvc's. Lung sounds clear and patient had a bm this am.
--- NOTE | 2024-04-23 17:21 | P.PN_ITS ---
Subjective *Date: 04/23/24 *Time: 17:21 Interval history: patient was seen and evaluated at the bedside. No reported acute events overnight, denies chest pain, shortness of breath, nausea, vomiting, abdominal pain. patient sister is also at the bedside Exam Data for Last 24 hours Vital signs and Labs for Last 24 Hours: Temp Pulse Resp BP Pulse Ox O2 Del Method 97.8 F 84 18 127/62 93 L Room Air 04/23/24 16:00 04/23/24 16:00 04/23/24 16:00 04/23/24 16:00 04/23/24 12:00 04/23/24 17:00 Laboratory Results - last 24 hr 04/22/24 11:00: POC Glucose 201 H 04/22/24 20:08: POC Glucose 173 H 04/23/24 06:30: WBC 6.1, RBC 3.46 L, Hgb 9.1 L, Hct 29.2 L, MCV 84.3, MCH 26.2 L , MCHC 31.0 L, RDW 17.5, Plt Count 221 D, MPV 8.2, Neut % (Auto) 63.4, Lymph % (Auto) 25.6, [place] % (Auto) 5.9, Eos % (Auto) 4.5, Baso % (Auto) 0.7, Neut # (Auto) 3.9, Lymph # (Auto) 1.6, [place] # (Auto) 0.4, Eos # (Auto) 0.3, Baso # (Auto) 0.0, Sodium 135 L, Potassium 4.0, Chloride 107, Carbon Dioxide 23, Anion Gap 9.0, BUN 21 H, Creatinine 1.00, Estimated Creat Clear 97, Estimated GFR 74, Est GFR ( Amer) 89, Glucose 114 H, Calcium 8.0 L, Magnesium 1.8, Total Bilirubin 0.5, AST 18 D, ALT 13 D, Alkaline Phosphatase 96, Total Protein 6.3, Albumin 3.2 L D, Globulin 3.1, Albumin/Globulin Ratio 1.0 L I & O for Last 24 hours: Intake & Output 04/20/24 04/21/24 04/22/24 04/23/24 23:59 23:59 23:59 23:59 Intake Total 1517.756 / 2257.756 5320 / 5320 Output Total 750 / 750 1350 / 1350 Balance 767.756 / 4752.196 1996 / 3970 Weight 99.79 kg 99.79 kg Constitutional Constitutional: no acute distress *Routine HEENT Exam Head: Present normocephalic Eye: Present EOMI and PERRL ENT: Present mucous membranes moist *Routine Neck Exam Neck: Present supple; Absent lymphadenopathy *Routine Respiratory Exam Respiratory: Present CTA bilaterally *Routine Cardiovascular Exam Cardiovascular: Present RRR *Routine Abdominal Exam Abdominal: Present soft and normoactive bowel sounds; Absent tenderness *Routine Extremities Exam Extremities: Absent cyanosis, clubbing or edema *Routine Skin Exam Skin: Present warm; Absent rash *Routine Neurological Exam Neurological: Present alert and oriented X3 Assessment and Plan *Assessment and plan (1) Nausea: Status: Acute Category: Medical Code(s): R11.0 - Nausea (2) Arrhythmia: Status: Acute Category: Medical Code(s): I49.9 - Cardiac arrhythmia, unspecified (3) Diabetic ulcer of left heel associated with diabetes mellitus due to underlying condition, limited to breakdown of skin: Status: Acute Category: Medical Code(s): E08.621 - Diabetes mellitus due to underlying condition with foot ulcer; L97.421 - Non-pressure chronic ulcer of left heel and midfoot limited to breakdown of skin (4) S/P transmetatarsal amputation of foot: Status: Acute Qualifiers: Laterality: left Qualified Code(s): Z89.432 - Acquired absence of left foot Category: Surgical Code(s): Z89.439 - Acquired absence of unspecified foot (5) HLD (hyperlipidemia): Status: Chronic Qualifiers: Hyperlipidemia type: mixed hyperlipidemia Qualified Code(s): E78.2 - Mixed hyperlipidemia Category: Medical Code(s): E78.5 - Hyperlipidemia, unspecified (6) HTN (hypertension): Status: Chronic Qualifiers: Hypertension type: primary hypertension Qualified Code(s): I10 - Essential (primary) hypertension Category: Medical Code(s): I10 - Essential (primary) hypertension (7) Debility: Status: Acute Category: Medical Code(s): R53.81 - Other malaise (8) PVD (peripheral vascular disease): Status: Acute Category: Medical Code(s): I73.9 - Peripheral vascular disease, unspecified Plan Patient is a 69-year-old male with past medical history of diabetes mellitus morbid obesity, peripheral artery disease who presents to the hospital due to not feeling well. According the patient he has been having nausea vomiting for past 3 to 4 days, it is not improving. Patient also mentions he has been feeling tired fatigue. He has no appetite he has been feeling ill. Patient otherwise denied chest pain, fevers chills. He also denies shortness of breath normally does not walk he recently had foot surgery by podiatry for toe amputations. On further evaluation patient was found to have PVCs and tachycardia, was admitted for cardiology evaluation. Assessment and plan Fatigue, nausea likely secondary to arrhythmia, PVCs CAD DC IV amiodarone, start PO amiodarone 200 BID Monitor on cardiac telemetry Check a level, magnesium level Monitor and replace electrolytes Resume home aspirin, statin cardiology consulted L Foot cellulitis continue home linezolid 600 BID scheduled for 14 days from Diabetes mellitus Insulin sliding scale HTN HLD - resume home meds DVT PPx - lovenox
[2024-04-23] MEDS: INSULIN GLARGINE 100 UNITS/ML 3ML FLEXPEN 42 UNIT SQ (21:03)
[2024-04-23] MEDS: LAMOTRIGINE 150 MG 1 EACH PO (21:04)
[2024-04-23] MEDS: AMIODARONE 200MG TABLET 200 MG PO (21:05)
[2024-04-24] VITALS (20 sets, daily range): BP systolic 107–148; BP diastolic 56–76; PULSE 70–90; RESP 10–21; TEMP 36.5–36.8; O2SAT 94–100; BMI 34.1
--- NOTE | 2024-04-24 04:06 | PC.NURSE ---
69 yo male pt admitted with arrythmia. Pt is A/O X 4 and is bedfast. He was medicated with morphine early in the shift due to high pain rating to back, leg and butt which provided relief. He has maintained his 02 sats above 90 on RA and has shown NSR with PVCs on telemetry. Pt has f/c patent to [facility] . FSBS at 2100 was 186, pt covered with 2 units of Humalog. He has been awake a lot during this shift reading.
--- NOTE | 2024-04-24 05:20 | PC.NURSE ---
Wound care provided to areas on buttocks. Cleansed with NS, pack with moistened gauze and covered with Mepilex border
[2024-04-24 05:23] LABS: POC Glucose,Bedside 187 (70-110)
[2024-04-24 05:23] LABS: POC Glucose,Bedside 110 (70-110)
[2024-04-24 05:23] LABS: POC Glucose,Bedside 186 (70-110)
[2024-04-24 05:23] LABS: POC Glucose,Bedside 125 (70-110)
[2024-04-24] MEDS: humaLOG 100 UNITS/ML 10ML VIAL (SSI) SQ ×3 (05:31→22:56)
[2024-04-24] MEDS: MORPHINE 4MG/ML SYRINGE 4 MG IV ×3 (05:36→22:42)
[2024-04-24] MEDS: CLOPIDOGREL 75MG TAB 75 MG PO (08:16)
[2024-04-24] MEDS: GABAPENTIN 100MG CAPSULE 200 MG PO ×2 (08:16→22:42)
[2024-04-24] MEDS: AMIODARONE 200MG TABLET 200 MG PO ×2 (08:17→22:42)
[2024-04-24] MEDS: METOPROLOL SUCCINATE XL 25MG TABLET 25 MG PO (08:17)
[2024-04-24] MEDS: PT OWN MED *ASPIRIN 81 MG EC TAB 1 EACH PO (08:18)
[2024-04-24] MEDS: PT OWN MED *ATORVASTATIN 40 MG TAB 1 EACH PO (08:18)
[2024-04-24] MEDS: LAMOTRIGINE 100 MG 1 EACH PO ×2 (08:19→22:42)
[2024-04-24] MEDS: FUROSEMIDE 40 MG 1 EACH PO (08:19)
[2024-04-24] MEDS: METOCLOPRAMIDE 5 MG 1 EACH PO ×2 (08:20→16:33)
[2024-04-24] MEDS: PANTOPRAZOLE 40 MG 1 EACH PO (08:20)
[2024-04-24] MEDS: [UNRECOGNIZED DRUG - OTHER] PO (08:21)
[2024-04-24] MEDS: DOCUSATE PO (08:21)
[2024-04-24] MEDS: LINEZOLID 600 MG 1 EACH PO ×2 (08:21→22:58)
[2024-04-24] MEDS: ONDANSETRON 4MG/2ML VIAL 4 MG IV ×2 (08:22→17:47)
--- NOTE | 2024-04-24 09:54 | CA_ITS ---
APPROVED REPORT EXAM: Comprehensive 2D, Doppler, and color-flow Echocardiogram Occupational Safety And Health Manager: Brii Plaza RVT Ht: 6 ft 0 in Wt: 252lbs BSA: 2.35 BP: 114/63 mmHg Indications: SVT,CAD,HTN,DM,FATIGUE,HLD TDS-PT BODY HABITUS 2D Dimensions LA Volume 63.00 mL LA Volume Index 26.81 mL/m2 (M/F) 16-34 M-Mode Dimensions RVDd 3.62 cm (0.9-2.6) LA Diam 3.55 cm (1.9-4.0) LVDd 5.97 cm (3.5-5.7) LVDs 4.14 cm (3.5-5.7) IVSd 0.89 cm (0.6-1.1) PWd 0.47 cm (0.6-1.1) EF (Teich) 57.30% FS 30.70% EDV (Teich) 177.90 mL TAPSE 2.83 (<1.7) ESV (Teich) 75.90 mL LV Diastology E Decel Time 150 (160-240 msec) E/A Ratio 1.0 Aortic Valve TERRI Index 1.37 cm2/m2 AoV Peak Alonso. 161.0 (50-130 cm/s) AO Peak GR. 10.40 mmHg AO Mean GR. 6.40 (<5 mmHg) AO VTI 31.0 (18-25 cm) TERRI (VTI) 3.31 (2.5-4.5 cm2) Mitral Valve MV E Max Alonso. 110.0 (40-130 cm/s) MV A Velocity 112.0 (40-130 cm/s) E/A Ratio 0.98 MV PHT 44.0 ms Pulmonary Valve PV Peak Velocity 80.0 (50-150 cm/s) Tricuspid Valve TR P. Velocity 292.00 cm/s RAP Estimate 10.00 mmHg RVSP 44.00 mmHg Left Ventricle The left ventricle is normal size. The left ventricular systolic function is mildly reduced. There is increased LV wall thickness. There is mild global hypokinesis present. Grade 1 diastolic dysfunction is present. LVEF is 45%. Right Ventricle Right ventricle is mildly dilated. Right ventricle is mildly hypokinetic. Atria Left atrium is mildly dilated. Right atrium is mildly dilated. There is no Doppler evidence of interatrial shunt. Aortic Valve The aortic valve opens well. There is no aortic valvular stenosis. No aortic regurgitation is present. Mitral Valve The mitral valve is normal in structure. No evidence of mitral valve stenosis. Trace mitral valve regurgitation noted. Tricuspid Valve The tricuspid valve leaflets are thin and pliable. Trace tricuspid regurgitation. RVSP is 20-25 mmHg. Pulmonic Valve The pulmonary valve is normal in structure. Trace pulmonic regurgitation. Great Vessels The aortic root is not well visualized. IVC is normal in size and collapses >50% with inspiration. Pericardium There is no pericardial effusion. Other Information Study Quality: Fair Conclusion Mildly reduced LV systolic function. Mildly dilated RV with mild reduction in RV function. Mild biatrial dilation. No significant valvular stenosis or regurgitation. Electronically signed by : Jenny English MD 04/24/2024 14:56:50
--- NOTE | 2024-04-24 11:30 | EXP.POD.CONS ---
History of Present Illness *Admission Date: 04/22/24 *History of present illness: Patient is a 69-year-old male with past medical history of diabetes mellitus morbid obesity, peripheral artery disease who presents to the hospital due to not feeling well. According the patient he has been having nausea vomiting for past 3 to 4 days, it is not improving. Patient also mentions he has been feeling tired fatigue. He has no appetite he has been feeling ill. Patient otherwise denied chest pain, fevers chills. He also denies shortness of breath normally does not walk he recently had foot surgery by podiatry for toe amputations. On further evaluation patient was found to have PVCs and tachycardia, was admitted for cardiology evaluation. 04/24/24: Podiatry consult: Patient was sitting up in bed, fixing to eat his lunch, he appears to be doing well, and denies any pain with his L TMA postop site. [facility] Disclaimer: The information contained in this section may have been updated after the patient was seen, as this information can be updated by other users. Medical History Seizure CAD in [place] artery Acute febrile illness Atrial flutter Bilateral cellulitis of lower leg Cellulitis Diabetes mellitus Dystrophia unguium Fatigue Fever Infestation by fly larvae Lymphedema of both lower extremities Malaise Obesity with body mass index (BMI) of 30.0 to 39.9 Peripheral vascular disease Renal insufficiency Spinal stenosis of cervical region Spinal stenosis of lumbar region Systemic inflammatory response syndrome (SIRS) Ulcers of both lower extremities Uncontrolled diabetes mellitus History of left heart catheterization (LHC) Surgical History History of amputation H/O Spinal surgery Family History Mother Breast cancer Family history of myocardial infarction Social History (Updated 04/22/24 @ 07:01 by Gill Peter RN) Smoking Status: Never smoker alcohol intake: never substance use type: marijuana current occupational status: retired and disabled Travel in the last 8 weeks: None household members: family caffeine: No Review of Systems Constitutional Constitutional: Denies headache(s) and Reports weakness (Generalized) ENT Ears, Nose, Mouth, and Throat: Denies dizziness and Denies headache(s) *Musculoskeletal Musculoskeletal: Denies numbness and Denies tingling *Neurologic Neurologic: Denies dizziness, Denies headache(s), Denies numbness, Denies tingling and Reports weakness (Generalized) Meds Home Medications and Allergies Home Medications ?Medication ?Instructions ?Recorded ?Confirmed ?Type aspirin 81 mg tablet,delayed 81 mg PO DAILY 04/20/23 04/22/24 History release buspirone 5 mg tablet 5 mg PO TID 04/20/23 04/22/24 History furosemide 40 mg tablet 40 mg PO DAILY Fluid 04/20/23 04/22/24 History lamotrigine 100 mg tablet 100 mg PO BID 04/20/23 04/22/24 History lamotrigine 150 mg tablet 150 mg PO HS Seizures 04/21/23 04/22/24 History insulin glargine 100 unit/mL (3 42 unit SQ HS 06/04/23 04/22/24 History mL) subcutaneous pen (Lantus Solostar U-100 Insulin) clopidogrel 75 mg tablet (Plavix) 75 mg PO DAILY #30 tabs 06/08/23 04/22/24 Rx metoprolol succinate 25 mg 25 mg PO DAILY #30 tabs 06/08/23 04/22/24 Rx tablet,extended release 24 hr atorvastatin 40 mg tablet 40 mg PO DAILY 03/03/24 04/22/24 History pantoprazole 40 mg tablet,delayed 40 mg PO DAILY 03/03/24 04/22/24 History release metoclopramide HCl 5 mg tablet 5 mg PO BID 03/27/24 04/22/24 History gabapentin 100 mg capsule 200 mg (2 x 100 mg) PO TID 30 days 04/01/24 04/22/24 Rx #180 caps linezolid 600 mg tablet (Zyvox) 600 mg PO Q12H 14 days #28 tabs 04/10/24 04/22/24 Rx baclofen 10 mg tablet 10 mg PO BIDP PRN Muscle Spasm 04/22/24 04/22/24 History sennosides 8.6 mg-docusate sodium 1 tab PO BID 04/22/24 04/22/24 History 50 mg tablet (Stimulant Laxative Plus) New Prescriptions to Start Prescriptions: Allergies Allergy/AdvReac Type Severity Reaction Status Date / Time hydrocodone [From LORTAB] Allergy Unknown NA-NAUSEA/V Verified 04/22/24 00:02 OMITING codeine Allergy Verified 04/22/24 00:02 [facility] Allergy Verified 04/22/24 00:02 tramadol AdvReac Unknown Verified 04/22/24 00:02 allergy reaction Exam (Inpt) Vital signs and Labs for Last 24 Hours: Temp Pulse Resp BP Pulse Ox O2 Del Method 98.0 F 74 21 118/75 95 Room Air 04/24/24 08:00 04/24/24 08:15 04/24/24 08:00 04/24/24 08:00 04/24/24 08:15 04/24/24 09:00 Laboratory Results - last 24 hr 04/23/24 05:07: POC Glucose 125 H 04/23/24 11:40: POC Glucose 187 H 04/23/24 16:18: POC Glucose 110 04/23/24 20:52: POC Glucose 186 H I & O for Labs for Last 24 Hours: Intake & Output 04/21/24 04/22/24 04/23/24 04/24/24 23:59 23:59 23:59 23:59 Intake Total 1517.756 / 6161.421 7385 / 5680 270 / 270 Output Total 750 / 750 1350 / 1350 450 / 450 Balance 767.756 / 429.397 4121 / 4330 -180 / -180 Weight 220 lb 219 lb 15.988 oz 252 lb 1.6 oz Microbiology Reports for the Last 24 Hours: Microbiology 03/27/24 17:20 Blood Blood Culture - Preliminary NO GROWTH AFTER 48 HOURS 03/27/24 17:20 Blood Blood Culture - Preliminary NO GROWTH AFTER 48 HOURS Constitutional: Present no acute distress, obese and cooperative Head: Present normocephalic Eye: Present as per HPI Neck: Present normal inspection and trachea midline Respiratory: Present normal respiratory effort and able to speak in complete sentences Cardiac: Present posterior tibial pulses present and pedal pulses present Comment:: 1+ pedal edema, palpable DP/PT pulses to Left foot, Right AKA noted. Has recent LLE stent. His edema and erythema has improved since I saw him last in the office. Skin is loose and not as warm to touch. GI: Present soft Comments:: deferred Rectal (male): Present deferred (male): Present deferred Extremities: Present normal capillary refill and edema (2+ Left pedal edema, LLE cellulitis, Ulcer to L Lower leg cultured.); Absent calf tenderness Comment:: S/P Left Transmetatarsal amputation, sutures intact. Improvement noted to the left lower leg and foot cellulitis. Plan to leave sutures in place another couple of weeks to keep site from wound dehiscence. No drainage, brownish/black tissue noted centrally and dorsal foot from suture line. Skin: Present intact, erythema (improving), warm and wounds (S/P Left TMA, left lower leg and left heel. ) Neuro: Present Motor Function Intact, Grossly Intact, oriented x 3, tone normal and moves all extremities Comment:: Hx of neuropathy Ankle: left: swelling (LLE edema, erythema improving ), left: tenderness, left: wound (s/p left TMA, ulcer to left heel) and left: decreased ROM (Right AKA noted) Feet/Toes: left: erythema (L leg and TMA cellulitis ), left: swelling (S/P L TMA), left: tenderness (amp site) and left: wound (left TMA, left heel ulcer) and bilateral: amputation (L TMA, Right AKA ) and bilateral: decreased ROM Inspection: Present foot deformity deformity: Present hammer toes, infection (cellulitis Left lower leg and foot ) and other (Right AKA, s/p left TMA) Pulses: L dorsalis pedis pulse: normal, R dorsalis pedis pulse: normal, L posterior tibial pulse: normal and R posterior tibial pulse: normal CFT: normal: CFT Results Labs 04/24/24 11:22 04/24/24 11:22 Labs: Abnormal lab results 04/23/24 04/23/24 04/23/24 Range/Units 05:07 11:40 20:52 POC Glucose 125 H 187 H 186 H (70-110) H & H 04/22/24 04/23/24 Range/Units 00:17 06:30 Hgb 10.4 L 9.1 L (14.1-18.0) g/dL Hct 33.9 L 29.2 L (42.0-52.0) % Coagulation 04/22/24 Range/Units 00:17 INR 1.00 (0.9-1.1) All other labs normal. Assessment and Plan *Assessment and plan (1) Nausea: Status: Acute Category: Medical Code(s): R11.0 - Nausea (2) Arrhythmia: Status: Acute Qualifiers: Arrhythmia type: ventricular tachycardia, unspecified Qualified Code(s): I47.20 - Ventricular tachycardia, unspecified Category: Medical Code(s): I49.9 - Cardiac arrhythmia, unspecified (3) Diabetic ulcer of left heel associated with diabetes mellitus due to underlying condition, limited to breakdown of skin: Status: Acute Category: Medical Code(s): E08.621 - Diabetes mellitus due to underlying condition with foot ulcer; L97.421 - Non-pressure chronic ulcer of left heel and midfoot limited to breakdown of skin (4) S/P transmetatarsal amputation of foot: Status: Acute Qualifiers: Laterality: left Qualified Code(s): Z89.432 - Acquired absence of left foot Category: Surgical Code(s): Z89.439 - Acquired absence of unspecified foot (5) HLD (hyperlipidemia): Status: Chronic Qualifiers: Hyperlipidemia type: mixed hyperlipidemia Qualified Code(s): E78.2 - Mixed hyperlipidemia Category: Medical Code(s): E78.5 - Hyperlipidemia, unspecified (6) HTN (hypertension): Status: Chronic Qualifiers: Hypertension type: primary hypertension Qualified Code(s): I10 - Essential (primary) hypertension Category: Medical Code(s): I10 - Essential (primary) hypertension (7) Debility: Status: Acute Category: Medical Code(s): R53.81 - Other malaise (8) PVD (peripheral vascular disease): Status: Acute Category: Medical Code(s): I73.9 - Peripheral vascular disease, unspecified Plan Patient is a 69-year-old male with past medical history of diabetes mellitus morbid obesity, peripheral artery disease who presents to the hospital due to not feeling well. According the patient he has been having nausea vomiting for past 3 to 4 days, it is not improving. Patient also mentions he has been feeling tired fatigue. He has no appetite he has been feeling ill. Patient otherwise denied chest pain, fevers chills. He also denies shortness of breath normally does not walk he recently had foot surgery by podiatry for toe amputations. On further evaluation patient was found to have PVCs and tachycardia, was admitted for cardiology evaluation. Podiatry consult Left TMA/ I&D, sx. 03/28/24 L Foot cellulitis S/p Left foot transmetatarsal amputation, Left foot irrigation and wide excisional debridement -continue home linezolid 600 BID scheduled for 14 days from -has mild recurrent left lower leg cellulitis -skin/wounds were cleansed. -dsg change: betadine soaked gauze, kerlix and jeffery wrap applied. -maintain dressing clean dry and intact. -Nursing to do every other day dressing changes as stated above while inpatient -float/off load left heel on pillow. -NWB to LLE with wheelchair. -follow up in office next week as scheduled for skin check.
[2024-04-24 11:35] LABS: Basophils % 0.4 % (0.1-2.0); Eosinophils # 0.4 K/mm3 (0.0-0.4); Eosinophils % 4.7 % (0.1-12.0); Hematocrit 26.8 % (42.0-52.0); Hemoglobin 8.4 g/dL (14.1-18.0); Lymphocytes # 1.9 K/mm3 (0.7-4.5); Lymphocytes % 24.8 % (10-50); Mean Corpuscular HGB Conc 31.3 g/dL (31.8-35.4); Mean Corpuscular Hemoglobin 26.4 pg (27.0-31.2); Mean Corpuscular Volume 84.2 fl (80-94); Mean Platelet Volume 8.2 fl (7.4-10.4); Monocytes # 0.4 K/mm3 (0.1-1.0); Monocytes % 4.6 % (1.7-9.3); Neutrophils # 5.1 K/mm3 (1.8-7.8); Neutrophils % 65.6 % (37.0-80.0); Platelet Count 184 K/mm3 (142-424); Red Blood Count 3.19 M/mm3 (4.60-6.20); Red Cell Distribution Width 17.6 % (11.5-17.5); White Blood Count 7.8 K/mm3 (4.8-10.8)
[2024-04-24 11:43] LABS: Albumin Level 3.3 g/dl (3.5-5.0); Chloride 107 mmol/L (98-107); Potassium 4.2 mmoL/L (3.5-5.1); Sodium 134 mmol/L (136-145)
[2024-04-24 11:46] LABS: Alanine Aminotransferase 17 U/L (12-78); Albumin/Globulin Ratio 1.1 (1.1-1.8); Alkaline Phosphatase 99 U/L (38-126); Anion Gap 9.2 mEq/L (5-15); Aspartate Amino Transferase 22 U/L (17-59); Bilirubin,Total 0.4 mg/dl (0.2-1.3); Blood Urea Nitrogen 23 mg/dl (9-20); Carbon Dioxide 22 mmol/L (22.0-30.0); Creatinine Clearance Estimated 101 mL/min (50-200); Estimated Glomerular Filt Rate 66 ml/min (>60); GFR (African American) 80 ML/MIN (>60); Globulin 3.1 g/dL (1.3-3.2); Glucose 145 mg/dl (74-100); Total Protein,Serum 6.4 g/dl (6.3-8.2)
[2024-04-24 11:52] LABS: C-Reactive Protein 42.8 mg/L (0-4)
--- NOTE | 2024-04-24 12:06 | SW/DCPLANNER ---
Addendum entered by Bethany Campuzano 04/25/24 13:11: Patient information/order has been faxed at [email or web address] [employer] to resume home health services. Original Note: Patient is currently established w/ [facility]. I will fax updated information/order to resume services at time of discharge. Discharge date is unknown at this time.
[2024-04-24 12:14] LABS: Erythrocyte Sedimentation Rate > 140 mm/hr (0-20)
--- NOTE | 2024-04-24 12:25 | P.CONCA_ITS ---
History of Present Illness History of Present Illness Consult date: 04/24/24 Requesting physician: Rosio Glez Chief complaint: V. tach Additional Medical History:: 1. CAD A. Previous JACOBO, about 10-12 yrs ago, [facility] 2. Diabetes mellitus 3. Right AKA 4. Left partial foot amputation 5. Hypertension A. Echo, 2019, EF 55% with no regional WMA. No significant valve disease. 6. Hyperlipidemia 7. History of seizure disorder 8. History of spinal stenosis in the cervical and lumbar regions 9. Obesity 10. History of atrial flutter, 2019 A. No OAC due to high falls risk 11. Surgical incision and drainage of left medial buttock/ischial rectal/perianal abscess, 03/28/2024, Dr. Bowen History of present illness: Patient is a 69-year-old male with past medical history of diabetes mellitus morbid obesity, peripheral artery disease who presents to the hospital due to not feeling well. According the patient he has been having nausea vomiting for past 3 to 4 days, it is not improving. Patient also mentions he has been feeling tired fatigue. He has no appetite he has been feeling ill. Patient otherwise denied chest pain, fevers chills. He also denies shortness of breath normally does not walk he recently had foot surgery by podiatry for toe amputations. On further evaluation patient was found to have PVCs and tachycardia, was admitted for cardiology evaluation. The above per Dr. Glez Patient confirms not feeling well/fatigue over the last week with some nausea and vomiting. Remote coronary artery disease with stenting [facility] greater than 10 years ago. No recent stress testing. Patient was loaded with IV amiodarone over the weekend with conversion to oral amiodarone thereafter. He continues to show sinus rhythm with frequent PVCs often in a bigeminal pattern. Troponins normal this admission. C-reactive protein elevated at 42.8 CT of the abdomen pelvis showed no acute findings. Echocardiogram results pending Discussed with Dr. Augustin and Dr. Thapa. Will proceed with left heart catheterization and possible AICD implantation prior to discharge. Recommendations discussed with patient and he agrees to proceed in this fashion. [facility] Disclaimer: The information contained in this section may have been updated after the patient was seen, as this information can be updated by other users. Medical History Seizure CAD in [place] artery Acute febrile illness Atrial flutter Bilateral cellulitis of lower leg Cellulitis Diabetes mellitus Dystrophia unguium Fatigue Fever Infestation by fly larvae Lymphedema of both lower extremities Malaise Obesity with body mass index (BMI) of 30.0 to 39.9 Peripheral vascular disease Renal insufficiency Spinal stenosis of cervical region Spinal stenosis of lumbar region Systemic inflammatory response syndrome (SIRS) Ulcers of both lower extremities Uncontrolled diabetes mellitus History of left heart catheterization (LHC) Surgical History History of amputation H/O Spinal surgery Family History Mother Breast cancer Family history of myocardial infarction Social History (Updated 04/22/24 @ 07:01 by Gill Peter RN) Smoking Status: Never smoker alcohol intake: never substance use type: marijuana current occupational status: retired and disabled Travel in the last 8 weeks: None household members: family caffeine: No Review of Systems Review of Systems Review of systems:: pertinent systems reviewed and negative unless documented below Constitutional Constitutional: Denies headache(s) and Reports weakness (Generalized) ENT Ears, Nose, Mouth, and Throat: Denies dizziness and Denies headache(s) *Musculoskeletal Musculoskeletal: Denies numbness and Denies tingling *Neurologic Neurologic: Denies dizziness, Denies headache(s), Denies numbness, Denies tingling and Reports weakness (Generalized) Exam Data for Last 24 hours Vital signs and Labs for Last 24 Hours: Temp Pulse Resp BP Pulse Ox O2 Del Method 98.2 F 81 20 127/72 94 L Room Air 04/24/24 12:00 04/24/24 12:00 04/24/24 12:00 04/24/24 12:00 04/24/24 12:00 04/24/24 12:00 Laboratory Results - last 24 hr 04/23/24 05:07: POC Glucose 125 H 04/23/24 11:40: POC Glucose 187 H 04/23/24 16:18: POC Glucose 110 04/23/24 20:52: POC Glucose 186 H 04/24/24 11:22: WBC 7.8 D, RBC 3.19 L, Hgb 8.4 L, Hct 26.8 L, MCV 84.2, MCH 26.4 L, MCHC 31.3 L, RDW 17.6 H, Plt Count 184, MPV 8.2, Neut % (Auto) 65.6, Lymph % (Auto) 24.8, Mclennan % (Auto) 4.6, Eos % (Auto) 4.7, Baso % (Auto) 0.4, Neut # (Auto) 5.1, Lymph # (Auto) 1.9, Mclennan # (Auto) 0.4, Eos # (Auto) 0.4, Baso # (Auto) 0.0, ESR > 140 H, Sodium 134 L, Potassium 4.2, Chloride 107, Carbon Dioxide 22, Anion Gap 9.2, BUN 23 H, Creatinine 1.10, Estimated Creat Clear 101, Estimated GFR 66, Est GFR ( Amer) 80, Glucose 145 H, Calcium 8.0 L, Total Bilirubin 0.4, AST 22, ALT 17 D, Alkaline Phosphatase 99, C-Reactive Protein 42.8 H, Total Protein 6.4, Albumin 3.3 L, Globulin 3.1, Albumin/Globulin Ratio 1.1 I & O for Last 24 hours: Intake & Output 04/22/24 04/23/24 04/24/24 04/25/24 11:59 11:59 11:59 11:59 Intake Total 567.756 / 043.352 1990 / 5910 990 / 990 Output Total 400 / 400 800 / 1700 1350 / 1350 Balance 167.756 / 650.652 0979 / 4210 -360 / -360 Weight 220 lb 219 lb 15.988 oz 252 lb 1.6 oz Constitutional Constitutional: no acute distress *Routine Respiratory Exam Respiratory: Present CTA bilaterally *Routine Cardiovascular Exam Cardiovascular: Present RRR; Absent murmur, gallop or rubs *Routine Extremities Exam Extremities: Present edema Comments: Right AKA Left foot with partial transmetatarsal amputation that is healing. Sutures intact. *Routine Neurological Exam Neurological: Present alert, oriented X3 and CN II-XII intact Meds Home Medications and Allergies Home Medications ?Medication ?Instructions ?Recorded ?Confirmed ?Type aspirin 81 mg tablet,delayed 81 mg PO DAILY 04/20/23 04/22/24 History release buspirone 5 mg tablet 5 mg PO TID 04/20/23 04/22/24 History furosemide 40 mg tablet 40 mg PO DAILY Fluid 04/20/23 04/22/24 History lamotrigine 100 mg tablet 100 mg PO BID 04/20/23 04/22/24 History lamotrigine 150 mg tablet 150 mg PO HS Seizures 04/21/23 04/22/24 History insulin glargine 100 unit/mL (3 42 unit SQ HS 06/04/23 04/22/24 History mL) subcutaneous pen (Lantus Solostar U-100 Insulin) clopidogrel 75 mg tablet (Plavix) 75 mg PO DAILY #30 tabs 06/08/23 04/22/24 Rx metoprolol succinate 25 mg 25 mg PO DAILY #30 tabs 06/08/23 04/22/24 Rx tablet,extended release 24 hr atorvastatin 40 mg tablet 40 mg PO DAILY 03/03/24 04/22/24 History pantoprazole 40 mg tablet,delayed 40 mg PO DAILY 03/03/24 04/22/24 History release metoclopramide HCl 5 mg tablet 5 mg PO BID 03/27/24 04/22/24 History gabapentin 100 mg capsule 200 mg (2 x 100 mg) PO TID 30 days 04/01/24 04/22/24 Rx #180 caps linezolid 600 mg tablet (Zyvox) 600 mg PO Q12H 14 days #28 tabs 04/10/24 04/22/24 Rx baclofen 10 mg tablet 10 mg PO BIDP PRN Muscle Spasm 04/22/24 04/22/24 History sennosides 8.6 mg-docusate sodium 1 tab PO BID 04/22/24 04/22/24 History 50 mg tablet (Stimulant Laxative Plus) New Prescriptions to Start Prescriptions: Allergies Allergy/AdvReac Type Severity Reaction Status Date / Time hydrocodone [From LORTAB] Allergy Unknown NA-NAUSEA/V Verified 04/22/24 00:02 OMITING codeine Allergy Verified 04/22/24 00:02 levetiracetam [From Keppra] Allergy Verified 04/22/24 00:02 tramadol AdvReac Unknown Verified 04/22/24 00:02 allergy reaction Assessment and Plan *Assessment and plan (1) Arrhythmia: Status: Acute Qualifiers: Arrhythmia type: ventricular tachycardia, unspecified Qualified Code(s): I47.20 - Ventricular tachycardia, unspecified Category: Medical Code(s): I49.9 - Cardiac arrhythmia, unspecified (2) Nausea: Status: Acute Category: Medical Code(s): R11.0 - Nausea (3) PAD (peripheral artery disease): Status: Acute Category: Medical Code(s): I73.9 - Peripheral vascular disease, unspecified (4) HLD (hyperlipidemia): Status: Chronic Qualifiers: Hyperlipidemia type: mixed hyperlipidemia Qualified Code(s): E78.2 - Mixed hyperlipidemia Category: Medical Code(s): E78.5 - Hyperlipidemia, unspecified (5) HTN (hypertension): Status: Chronic Qualifiers: Hypertension type: primary hypertension Qualified Code(s): I10 - Essential (primary) hypertension Category: Medical Code(s): I10 - Essential (primary) hypertension (6) Seizure disorder: Status: Chronic Category: Medical Code(s): G40.909 - Epilepsy, unspecified, not intractable, without status epilepticus (7) CAD in [place] artery: Status: Acute Category: Medical Code(s): I25.10 - Atherosclerotic heart disease of [place] coronary artery without angina pectoris (8) Obesity with body mass index (BMI) of 30.0 to 39.9: Status: Acute Category: Medical Code(s): E66.9 - Obesity, unspecified Plan 1. Ventricular tachycardia -Improved after IV and now oral amiodarone institution -On beta-andre therapy as well -Echo pending 2. CAD with prior coronary stenting -Troponins normal this admission -Plan left heart catheterization today -Continue Plavix and aspirin 3. PAD with prior right AKA and left transmetatarsal amputation -Continue aspirin and Plavix 4. Hyperlipidemia -Continue statin therapy 5. Diabetes mellitus -On insulin 6. History of seizure disorder 7. Chronic anemia with hemoglobin in the range of 8-10 chronically over the last couple years Proceed with left heart catheterization today Echocardiogram pending Possible AICD implantation tomorrow
--- NOTE | 2024-04-24 12:33 | IR_ITS ---
APPROVED REPORT Patient Location: Inpatient Clean Up Person: ANNE MARIE Bailon RT (R) PROCEDURES Left heart catheterization Left ventriculogram Selective coronary angiogram Intravascular ultrasound to the LAD Intravascular lithotripsy to the proximal and mid LAD Drug-eluting stent deployment to the proximal and mid LAD in a contiguous manner INDICATION Ischemic ventricular tachycardia, Coronary artery disease, Extensive proximal calcification Informed consent was obtained prior to the procedure. COMPLICATIONS None Estimated Blood Loss: Less than 10 mls TECHNIQUE One percent lidocaine used to anesthetize the right anterior aspect of the wrist. The right radial artery was accessed via the Seldinger technique. A 6 [place] sheath was placed in the right radial artery. 2.5 mg of Verapamil, 800 mcg of nitroglycerin, 1mg Lidocaine and 5000 U Heparin were given through the arterial sheath. The papa catheter was also used to perform left heart catheterization, left ventriculogram and selective coronary angiogram. At the end of the diagnostic angiogram therapeutic heparin was administered giving a therapeutic ACT and a JL 3 guide catheter was placed in the left main artery followed by Choice PT extra-support wire placed on the LAD. A 3 mm x 12 mm [place] frontier drug-eluting stent was deployed in the proximal LAD at 24 yani reducing the stenosis. Intravascular ultrasound probe was then advanced and there was difficulty getting the intravascular ultrasound probe through the 3 mm stent. This did demonstrate there was significant undersizing with improper deployment due to extensive calcification. A 3.5 x 22 mm [place] frontier stent was placed proximal to the for stent yet still overlapping at 24 yani. Multiple attempts were used to advance balloon and dilate however the entire balloon would not get past the stenotic area. A 3.5 x 12 mm intravascular lithotripsy shockwave balloon was advanced and deployed for total of 50 pulsations. Eventually the guide catheter was changed to an EBU 3.5 and a Choice PT extra-support wire was placed distally into the LAD. The guide liner was reinserted and a 3.5 x 12 mm compliant balloon was eventually deployed after multiple 4 mm balloons could not be passed. The 3.5 compliant balloon was deployed at 18 yani. Following this a 4 mm x 15 mm noncompliant balloon was then deployed and dilated at 24 yani. Following this a 3.0 x 26 mm [place] frontier stent was placed distal to the first 3 mm stent yet still overlapping and deployed at 20 yani. The balloon was brought back and deployed at 24 yani to further mesh the 2 stents. A total of 3 drug-eluting stents were placed in a contiguous manner with 7 balloons being used. At the end the procedure excellent angiograph results were obtained with [id number] flow being present before and after procedure the apparatus was removed the sheath was removed and hemostasis was achieved and TR banding patient was transferred to the postop putting in stable condition ANGIOGRAPHIC RESULTS The left main artery Normal The left anterior descending artery Has proximal severe focal stenosis greater than 80% which was calcified and extended into the mid segment with 50% stenoses. The distal LAD is subtotally occluded and fills via right to left and left to left collaterals a large first diagonal artery has proximal 30% stenosis The circumflex artery Is nondominant and has proximal 20 to 30% stenosis The right coronary artery Large dominant with proximal to mid vessel 20 to 30% stenoses. Distally there is 30 to 40% tandem stenoses with diffuse 20% stenoses throughout the posterior descending artery The MCCARTHY ventriculogram reveals Preserved at 50% The left ventricular end-diastolic pressure 15 mmHg IMPRESSION Severe disease in the proximal LAD with successful intravascular lithotripsy followed by 3 contiguous drug-eluting stents reducing the critical disease to less than 10% Successful intravascular ultrasound to help size the balloons and stents for the vessel Chronically occluded distal LAD which fills via [id number] and right to left collaterals Preserved ejection fraction Borderline LVEDP PLAN 1. There is a high likelihood patient's ventricular tachycardia was ischemically mediated. Recommend continuing amiodarone as well as LifeVest upon discharge 2. Placed 2-week Holter monitor on outpatient 3. Standard therapy for ischemic heart disease 4. Dual antiplatelet therapy 5. LDL less than 55 to be achieved that high intensity statin 6. Continue metoprolol and amiodarone 7. Cardiac rehabilitation Electronically signed by : Nehemias Thapa MD 04/24/2024 14:51:30
--- NOTE | 2024-04-24 12:58 | PC.NURSE ---
pt left unit with [employer] staff [id number]
[2024-04-24] MEDS: diphenhydrAMINE 50MG/ML VIAL 50 MG IV (13:08)
[2024-04-24] MEDS: LIDOCAINE 1% 10ML MDV 20 ML IJ (13:08)
[2024-04-24] MEDS: HEPARIN 1,000 UNITS/ML 10ML VIAL (CATH LAB) 10000 UNIT IV (13:08)
[2024-04-24] MEDS: VERAPAMIL 2.5MG/ML 2ML VIAL 2.5 MG IV (13:09)
[2024-04-24] MEDS: 0.9 % SODIUM CHLORIDE 500 ML 25 ML IV (13:09)
[2024-04-24] MEDS: HEPARIN 1,000 UNITS/500ML NS (CATH LAB) 3000 UNIT IV (13:09)
[2024-04-24] MEDS: MIDAZOLAM HCL 1MG/1ML 5ML VIAL 1 MG IV (13:10)
[2024-04-24] MEDS: FENTANYL 100MCG/2ML VIAL 50 MCG IV ×2 (13:10→14:06)
[2024-04-24] MEDS: IOPAMIDOL-370 (76%);100ML BOTTLE 210 ML IV (15:10)
[2024-04-24 15:13] LABS: CATHL Activated Clotting Time 280 SEC (74-125)
[2024-04-24 15:13] LABS: CATHL Activated Clotting Time 246 SEC (74-125)
[2024-04-24 16:36] LABS: POC Glucose,Bedside 134 (70-110)
--- NOTE | 2024-04-24 17:47 | EXP.PN ---
Subjective *Date: 04/24/24 *Time: 17:47 Interval history: patient was seen and evaluated at the bedside. No reported acute events overnight denies chest pain, shortness of breath, nausea, vomiting, abdominal pain. Exam Data for Last 24 hours Vital signs and Labs for Last 24 Hours: Temp Pulse Resp BP Pulse Ox O2 Del Method 97.9 F 74 18 136/76 98 Room Air 04/24/24 17:30 04/24/24 17:30 04/24/24 17:30 04/24/24 17:30 04/24/24 17:30 04/24/24 17:30 Laboratory Results - last 24 hr 04/23/24 05:07: POC Glucose 125 H 04/23/24 11:40: POC Glucose 187 H 04/23/24 16:18: POC Glucose 110 04/23/24 20:52: POC Glucose 186 H 04/24/24 11:22: WBC 7.8 D, RBC 3.19 L, Hgb 8.4 L, Hct 26.8 L, MCV 84.2, MCH 26.4 L, MCHC 31.3 L, RDW 17.6 H, Plt Count 184, MPV 8.2, Neut % (Auto) 65.6, Lymph % (Auto) 24.8, [place] % (Auto) 4.6, Eos % (Auto) 4.7, Baso % (Auto) 0.4, Neut # (Auto) 5.1, Lymph # (Auto) 1.9, [place] # (Auto) 0.4, Eos # (Auto) 0.4, Baso # (Auto) 0.0, ESR > 140 H, Sodium 134 L, Potassium 4.2, Chloride 107, Carbon Dioxide 22, Anion Gap 9.2, BUN 23 H, Creatinine 1.10, Estimated Creat Clear 101, Estimated GFR 66, Est GFR ( Amer) 80, Glucose 145 H, Calcium 8.0 L, Total Bilirubin 0.4, AST 22, ALT 17 D, Alkaline Phosphatase 99, C-Reactive Protein 42.8 H, Total Protein 6.4, Albumin 3.3 L, Globulin 3.1, Albumin/Globulin Ratio 1.1 04/24/24 13:41: Activated Clotting Time 280 H* 04/24/24 14:22: Activated Clotting Time 246 H* 04/24/24 16:27: POC Glucose 134 H I & O for Last 24 hours: Intake & Output 04/21/24 04/22/24 04/23/24 04/24/24 23:59 23:59 23:59 23:59 Intake Total 1517.756 / 2257.756 5680 / 5680 270 / 270 Output Total 750 / 750 1350 / 1800 450 / 450 Balance 767.756 / 5027.752 4964 / 3880 -180 / -180 Weight 99.79 kg 99.79 kg 114.351 kg Constitutional Constitutional: no acute distress *Routine HEENT Exam Head: Present normocephalic Eye: Present EOMI and PERRL ENT: Present mucous membranes moist *Routine Neck Exam Neck: Present supple; Absent lymphadenopathy *Routine Respiratory Exam Respiratory: Present CTA bilaterally *Routine Cardiovascular Exam Cardiovascular: Present RRR *Routine Abdominal Exam Abdominal: Present soft and normoactive bowel sounds; Absent tenderness *Routine Extremities Exam Extremities: Absent cyanosis, clubbing or edema *Routine Skin Exam Skin: Present warm; Absent rash *Routine Neurological Exam Neurological: Present alert and oriented X3 Assessment and Plan *Assessment and plan (1) Nausea: Status: Acute Category: Medical Code(s): R11.0 - Nausea (2) Arrhythmia: Status: Acute Qualifiers: Arrhythmia type: ventricular tachycardia, unspecified Qualified Code(s): I47.20 - Ventricular tachycardia, unspecified Category: Medical Code(s): I49.9 - Cardiac arrhythmia, unspecified (3) Diabetic ulcer of left heel associated with diabetes mellitus due to underlying condition, limited to breakdown of skin: Status: Acute Category: Medical Code(s): E08.621 - Diabetes mellitus due to underlying condition with foot ulcer; L97.421 - Non-pressure chronic ulcer of left heel and midfoot limited to breakdown of skin (4) S/P transmetatarsal amputation of foot: Status: Acute Qualifiers: Laterality: left Qualified Code(s): Z89.432 - Acquired absence of left foot Category: Surgical Code(s): Z89.439 - Acquired absence of unspecified foot (5) HLD (hyperlipidemia): Status: Chronic Qualifiers: Hyperlipidemia type: mixed hyperlipidemia Qualified Code(s): E78.2 - Mixed hyperlipidemia Category: Medical Code(s): E78.5 - Hyperlipidemia, unspecified (6) HTN (hypertension): Status: Chronic Qualifiers: Hypertension type: primary hypertension Qualified Code(s): I10 - Essential (primary) hypertension Category: Medical Code(s): I10 - Essential (primary) hypertension (7) Debility: Status: Acute Category: Medical Code(s): R53.81 - Other malaise (8) PVD (peripheral vascular disease): Status: Acute Category: Medical Code(s): I73.9 - Peripheral vascular disease, unspecified Plan Patient is a 69-year-old male with past medical history of diabetes mellitus morbid obesity, peripheral artery disease who presents to the hospital due to not feeling well. According the patient he has been having nausea vomiting for past 3 to 4 days, it is not improving. Patient also mentions he has been feeling tired fatigue. He has no appetite he has been feeling ill. Patient otherwise denied chest pain, fevers chills. He also denies shortness of breath normally does not walk he recently had foot surgery by podiatry for toe amputations. On further evaluation patient was found to have PVCs and tachycardia, was admitted for cardiology evaluation. Assessment and plan Fatigue, nausea likely secondary to arrhythmia, PVCs CAD started PO amiodarone 200 BID Monitor on cardiac telemetry Check a level, magnesium level Monitor and replace electrolytes Resume home aspirin, statin cardiology consulted plan for Cath and AICD placement s/p Cath per cardiology, 3 JACOBO in LAD placed, continue on ASA 81mg and Plavix 75mg daily plan for AICD tomorrow L Foot cellulitis continue home linezolid 600 BID scheduled for 14 days from , finish course on 04/25/2024, ok to DC linezolid tomorrow Diabetes mellitus Insulin sliding scale HTN HLD - resume home meds DVT PPx - lovenox plan for AICD placement tomorrow and DC per cardiology
[2024-04-24] MEDS: PROMETHAZINE HCL 25MG/ML 1ML VIAL 12.5 MG IV (22:42)
[2024-04-24] MEDS: LAMOTRIGINE 150 MG 1 EACH PO (22:42)
[2024-04-24] MEDS: INSULIN GLARGINE 100 UNITS/ML 3ML FLEXPEN 42 UNIT SQ (22:54)
[2024-04-25] VITALS: BP 137/72; PULSE 80; RESP 17; TEMP 36.8; O2SAT 94
[2024-04-25 02:50] LABS: POC Glucose,Bedside 154 (70-110)
[2024-04-25 02:50] LABS: POC Glucose,Bedside 160 (70-110)
[2024-04-25 04:00] VITALS: BP 109/57; PULSE 80; PULSE 89; RESP 20; TEMP 36.6; O2SAT 97; BMI 34.0
[2024-04-25] MEDS: MORPHINE 4MG/ML SYRINGE 4 MG IV (04:28)
[2024-04-25 06:15] LABS: Basophils % 0.6 % (0.1-2.0); Eosinophils # 0.4 K/mm3 (0.0-0.4); Eosinophils % 4.7 % (0.1-12.0); Hematocrit 25.8 % (42.0-52.0); Hemoglobin 7.9 g/dL (14.1-18.0); Lymphocytes # 1.7 K/mm3 (0.7-4.5); Mean Corpuscular HGB Conc 30.5 g/dL (31.8-35.4); Mean Corpuscular Hemoglobin 25.8 pg (27.0-31.2); Mean Corpuscular Volume 84.7 fl (80-94); Mean Platelet Volume 8.6 fl (7.4-10.4); Monocytes # 0.4 K/mm3 (0.1-1.0); Monocytes % 4.9 % (1.7-9.3); Neutrophils # 5.1 K/mm3 (1.8-7.8); Neutrophils % 66.9 % (37.0-80.0); Platelet Count 175 K/mm3 (142-424); Red Blood Count 3.05 M/mm3 (4.60-6.20); Red Cell Distribution Width 17.7 % (11.5-17.5); White Blood Count 7.6 K/mm3 (4.8-10.8)
[2024-04-25 06:18] LABS: Chloride 109 mmol/L (98-107); Potassium 4.5 mmoL/L (3.5-5.1); Sodium 135 mmol/L (136-145)
[2024-04-25 06:21] LABS: Anion Gap 7.5 mEq/L (5-15); Blood Urea Nitrogen 19 mg/dl (9-20); Calcium 7.9 mg/dl (8.4-10.2); Carbon Dioxide 23 mmol/L (22.0-30.0); Creatinine Clearance Estimated 101 mL/min (50-200); Estimated Glomerular Filt Rate 66 ml/min (>60); GFR (African American) 80 ML/MIN (>60); Glucose 135 mg/dl (74-100)
[2024-04-25 06:57] LABS: POC Glucose,Bedside 218 (70-110)
[2024-04-25 08:00] VITALS: BP 141/69; PULSE 81; PULSE 90; RESP 20; TEMP 36.8; O2SAT 98
[2024-04-25] MEDS: METOCLOPRAMIDE 5 MG 1 EACH PO (08:20)
[2024-04-25] MEDS: [UNRECOGNIZED DRUG - OTHER] PO (08:20)
[2024-04-25] MEDS: PANTOPRAZOLE 40 MG 1 EACH PO (08:20)
[2024-04-25] MEDS: PT OWN MED *ATORVASTATIN 40 MG TAB 1 EACH PO (08:20)
[2024-04-25] MEDS: DOCUSATE PO (08:20)
[2024-04-25] MEDS: ASPIRIN EC 81MG TABLET 81 MG PO (08:21)
[2024-04-25] MEDS: GABAPENTIN 100MG CAPSULE 200 MG PO (08:21)
[2024-04-25] MEDS: FUROSEMIDE 40 MG 1 EACH PO (08:21)
[2024-04-25] MEDS: METOPROLOL SUCCINATE XL 25MG TABLET 25 MG PO (08:21)
[2024-04-25] MEDS: AMIODARONE 200MG TABLET 200 MG PO (08:21)
[2024-04-25] MEDS: CLOPIDOGREL 75MG TAB 75 MG PO (08:21)
[2024-04-25] MEDS: LAMOTRIGINE 100 MG 1 EACH PO (08:38)
[2024-04-25] MEDS: LINEZOLID 600 MG 1 EACH PO (08:38)
--- NOTE | 2024-04-25 08:59 | P.PN_ITS ---
Subjective *Date: 04/25/24 *Time: 08:05 Interval history: Patient is resting comfortably in bed. The dressing is clean dry and intact to the left foot. Overall he states he is feeling better since heart cath. Denies pain to left foot. Ortho Exam (Inpt) Vital signs and Labs for Last 24 Hours: Temp Pulse Resp BP Pulse Ox O2 Del Method 98.2 F 81 20 141/69 H 98 Room Air 04/25/24 08:00 04/25/24 08:00 04/25/24 08:00 04/25/24 08:00 04/25/24 08:00 04/25/24 08:08 Laboratory Results - last 24 hr 04/24/24 05:30: POC Glucose 160 H 04/24/24 11:22: WBC 7.8 D, RBC 3.19 L, Hgb 8.4 L, Hct 26.8 L, MCV 84.2, MCH 26.4 L, MCHC 31.3 L, RDW 17.6 H, Plt Count 184, MPV 8.2, Neut % (Auto) 65.6, Lymph % (Auto) 24.8, [place] % (Auto) 4.6, Eos % (Auto) 4.7, Baso % (Auto) 0.4, Neut # (Auto) 5.1, Lymph # (Auto) 1.9, [place] # (Auto) 0.4, Eos # (Auto) 0.4, Baso # (Auto) 0.0, ESR > 140 H, Sodium 134 L, Potassium 4.2, Chloride 107, Carbon Dioxide 22, Anion Gap 9.2, BUN 23 H, Creatinine 1.10, Estimated Creat Clear 101, Estimated GFR 66, Est GFR ( Amer) 80, Glucose 145 H, Calcium 8.0 L, Total Bilirubin 0.4, AST 22, ALT 17 D, Alkaline Phosphatase 99, C-Reactive Protein 42.8 H, Total Protein 6.4, Albumin 3.3 L, Globulin 3.1, Albumin/Globulin Ratio 1.1 04/24/24 12:03: POC Glucose 154 H 04/24/24 13:41: Activated Clotting Time 280 H* 04/24/24 14:22: Activated Clotting Time 246 H* 04/24/24 16:27: POC Glucose 134 H 04/24/24 22:49: POC Glucose 218 H 04/25/24 05:23: WBC 7.6, RBC 3.05 L, Hgb 7.9 L, Hct 25.8 L, MCV 84.7, MCH 25.8 L , MCHC 30.5 L, RDW 17.7 H, Plt Count 175, MPV 8.6, Neut % (Auto) 66.9, Lymph % (Auto) 23.0, [place] % (Auto) 4.9, Eos % (Auto) 4.7, Baso % (Auto) 0.6, Neut # (Auto) 5.1, Lymph # (Auto) 1.7, [place] # (Auto) 0.4, Eos # (Auto) 0.4, Baso # (Auto) 0.0, Sodium 135 L, Potassium 4.5, Chloride 109 H, Carbon Dioxide 23, Anion Gap 7.5, BUN 19, Creatinine 1.10, Estimated Creat Clear 101, Estimated GFR 66, Est GFR ( Amer) 80, Glucose 135 H, Calcium 7.9 L I & O for Labs for Last 24 Hours: Intake & Output 04/22/24 04/23/24 04/24/24 04/25/24 11:59 11:59 11:59 11:59 Intake Total 567.756 / 490.865 9277 / 5910 990 / 990 530 / 530 Output Total 400 / 400 800 / 1700 1350 / 1350 1999 / 1999 Balance 167.756 / 217.223 1570 / 4210 -360 / -360 -1470 / -1470 Weight 220 lb 219 lb 15.988 oz 252 lb 1.6 oz 251 lb 3.2 oz Constitutional: Present no acute distress and obese Head: Present normocephalic Eyes: Present as per HPI ENT: Present normal exam Neck: Present normal inspection Respiratory: Present able to speak in complete sentences Cardiac: Present posterior tibial pulses present and pedal pulses present GI: Present soft Rectal (male): Present deferred (male): Present deferred Extremities: Present edema Comment:: Right AKA Skin: Present erythema and wounds Comment:: Left previous TMA. Sutures clean dry and intact to site. Some dusky bruising and eschar to the central incision. No purulence, malodor or new drainage. Overall edema and erythema have improved. Left foot dressing intact. Neuro: Present Motor Function Intact, oriented x 3 and moves all extremities Ankle: left: erythema (improving) and left: wound (see above, skin) Feet/Toes: left: erythema (improving) and left: wound (see above) and bilateral: amputation (R AKA, L TMA) Assessment and Plan *Assessment and plan (1) Arrhythmia: Status: Acute Qualifiers: Arrhythmia type: ventricular tachycardia, unspecified Qualified Code(s): I47.20 - Ventricular tachycardia, unspecified Category: Medical Code(s): I49.9 - Cardiac arrhythmia, unspecified (2) Diabetic ulcer of left heel associated with diabetes mellitus due to underlying condition, limited to breakdown of skin: Status: Acute Category: Medical Code(s): E08.621 - Diabetes mellitus due to underlying condition with foot ulcer; L97.421 - Non-pressure chronic ulcer of left heel and midfoot limited to breakdown of skin (3) S/P transmetatarsal amputation of foot: Status: Acute Qualifiers: Laterality: left Qualified Code(s): Z89.432 - Acquired absence of left foot Category: Surgical Code(s): Z89.439 - Acquired absence of unspecified foot (4) Debility: Status: Acute Category: Medical Code(s): R53.81 - Other malaise (5) PVD (peripheral vascular disease): Status: Acute Category: Medical Code(s): I73.9 - Peripheral vascular disease, unspecified (6) Obesity (BMI 30-39.9): Status: Chronic Category: Medical Code(s): E66.9 - Obesity, unspecified Plan Patient is a 69-year-old male with past medical history of diabetes mellitus morbid obesity, peripheral artery disease who presents to the hospital due to not feeling well. According the patient he has been having nausea vomiting for past 3 to 4 days, it is not improving. Patient also mentions he has been feeling tired fatigue. He has no appetite he has been feeling ill. Patient otherwise denied chest pain, fevers chills. He also denies shortness of breath normally does not walk he recently had foot surgery by podiatry for toe amputations. On further evaluation patient was found to have PVCs and tachycardia, was admitted for cardiology evaluation. 04/24/24: Podiatry consult Left TMA/ I&D, sx. 03/28/24 04/25/24: f/u on left foot cellulitis -S/p Left foot transmetatarsal amputation, Left foot irrigation and wide excisional debridement. -continue home linezolid 600 BID scheduled for 14 days from 04/10/24. -has mild recurrent left lower leg cellulitis. -skin/wounds were cleansed. -dsg change: betadine soaked gauze, kerlix and jeffery wrap applied. -maintain dressing clean dry and intact. -nursing to do every other day dressing changes as stated above while inpatient. -float/off load left heel on pillow. -NWB to LLE with wheelchair. -d/c plan: continue course of oral abx until gone then hold more abx. re- evaluate at office visit. -follow up in office next week as scheduled for skin check and possible suture removal. *needs ambulance service arranged for outpatient office visit.
[2024-04-25] MEDS: humaLOG 100 UNITS/ML 10ML VIAL (SSI) SQ ×2 (10:46→16:18)
[2024-04-25 10:50] LABS: POC Glucose,Bedside 190 (70-110)
--- NOTE | 2024-04-25 11:47 | P.PN_ITS ---
Subjective Subjective Date: 04/25/24 Time: 11:48 Principal diagnosis: Ventricular tachycardia, CAD Interval history: 69-year-old white male in bed in no acute distress. He did undergo cardiac catheterization with subsequent stenting to his LAD yesterday. He states he feels much better today. Telemetry shows sinus rhythm with infrequent PVCs Exam Data for Last 24 hours Vital signs and Labs for Last 24 Hours: Temp Pulse Resp BP Pulse Ox O2 Del Method 98.2 F 81 20 141/69 H 98 Room Air 04/25/24 08:00 04/25/24 08:00 04/25/24 08:00 04/25/24 08:00 04/25/24 08:00 04/25/24 10:25 Laboratory Results - last 24 hr 04/24/24 05:30: POC Glucose 160 H 04/24/24 11:22: ESR > 140 H, Sodium 134 L, Potassium 4.2, Chloride 107, Carbon Dioxide 22, Anion Gap 9.2, BUN 23 H, Creatinine 1.10, Estimated Creat Clear 101, Estimated GFR 66, Est GFR ( Amer) 80, Glucose 145 H, Calcium 8.0 L, Total Bilirubin 0.4, AST 22, ALT 17 D, Alkaline Phosphatase 99, C-Reactive Protein 42.8 H, Total Protein 6.4, Albumin 3.3 L, Globulin 3.1, Albumin/Globulin Ratio 1.1 04/24/24 12:03: POC Glucose 154 H 04/24/24 13:41: Activated Clotting Time 280 H* 04/24/24 14:22: Activated Clotting Time 246 H* 04/24/24 16:27: POC Glucose 134 H 04/24/24 22:49: POC Glucose 218 H 04/25/24 05:23: WBC 7.6, RBC 3.05 L, Hgb 7.9 L, Hct 25.8 L, MCV 84.7, MCH 25.8 L , MCHC 30.5 L, RDW 17.7 H, Plt Count 175, MPV 8.6, Neut % (Auto) 66.9, Lymph % (Auto) 23.0, [place] % (Auto) 4.9, Eos % (Auto) 4.7, Baso % (Auto) 0.6, Neut # (Auto) 5.1, Lymph # (Auto) 1.7, [place] # (Auto) 0.4, Eos # (Auto) 0.4, Baso # (Auto) 0.0, Sodium 135 L, Potassium 4.5, Chloride 109 H, Carbon Dioxide 23, Anion Gap 7.5, BUN 19, Creatinine 1.10, Estimated Creat Clear 101, Estimated GFR 66, Est GFR ( Amer) 80, Glucose 135 H, Calcium 7.9 L 04/25/24 10:36: POC Glucose 190 H I & O for Last 24 hours: Intake & Output 04/22/24 04/23/24 04/24/24 04/25/24 11:59 11:59 11:59 11:59 Intake Total 567.756 / 019.092 7855 / 5910 990 / 990 530 / 530 Output Total 400 / 400 800 / 1700 1350 / 1350 1999 / 1999 Balance 167.756 / 482.235 8293 / 4210 -360 / -360 -1470 / -1470 Weight 220 lb 219 lb 15.988 oz 252 lb 1.6 oz 251 lb 3.2 oz Constitutional Constitutional: no acute distress *Routine Respiratory Exam Respiratory: Present CTA bilaterally *Routine Cardiovascular Exam Cardiovascular: Present RRR *Routine Neurological Exam Neurological: Present alert and oriented X3 Progress Note: A&P Assessment and plan (1) Arrhythmia: Status: Acute (2) Diabetic ulcer of left heel associated with diabetes mellitus due to underlying condition, limited to breakdown of skin: Status: Acute (3) S/P transmetatarsal amputation of foot: Status: Acute (4) Debility: Status: Acute (5) PVD (peripheral vascular disease): Status: Acute (6) Obesity (BMI 30-39.9): Status: Chronic (7) CAD in [place] artery: Status: Acute Assessment and Plan Assessment and Plan for All Diagnoses:: 1. Ventricular tachycardia -Improved after IV and now oral amiodarone institution -On beta-andre therapy as well -Echo EF 45% with mild global hypokinesis. No significant valve disease. 2. CAD with prior coronary stenting -Troponins normal this admission -JACOBO to LAD, 04/24/2024 -Continue Plavix and aspirin 3. PAD with prior right AKA and left transmetatarsal amputation -Continue aspirin and Plavix 4. Hyperlipidemia -Continue statin therapy 5. Diabetes mellitus -On insulin -Hemoglobin A1c 6.3 on 03/04/2024 6. History of seizure disorder -On lamotrigine 7. Chronic anemia with hemoglobin in the range of 8-10 chronically over the last couple years 8. Noncompliance with follow-up visits Stable from cardiac standpoint for discharge home. Recommend 30-day event monitor to monitor for recurrent V. tach. Patient should follow-up in our office in 1 to 2 weeks. Home medication recommendations: Plavix 75 mg daily aspirin 81 mg daily Metoprolol succinate 25 mg daily Furosemide 40 mg daily Atorvastatin 40 mg daily Amiodarone 200 mg twice daily Pantoprazole 40 mg daily
[2024-04-25 12:00] VITALS: BP 123/63; PULSE 70; PULSE 77; RESP 20; TEMP 36.7; O2SAT 98
[2024-04-25 12:13] LABS: Cholesterol 123 mg/dl (140-200); HDL Cholesterol 31 mg/dl (40-60); Triglycerides 110 mg/dl (30-150); VLDL Cholesterol 22 mg/dL (0-40)
[2024-04-25 12:24] LABS: Direct LDL Cholesterol 59.47 mg/dL (100-129)
--- NOTE | 2024-04-25 13:00 | EXP.DC.SUM ---
General Admission date:: 04/22/24 Discharge date: 04/25/24 HPI HPI HPI: Patient is a 69-year-old male with past medical history of diabetes mellitus morbid obesity, peripheral artery disease who presents to the hospital due to not feeling well. According the patient he has been having nausea vomiting for past 3 to 4 days, it is not improving. Patient also mentions he has been feeling tired fatigue. He has no appetite he has been feeling ill. Patient otherwise denied chest pain, fevers chills. He also denies shortness of breath normally does not walk he recently had foot surgery by podiatry for toe amputations. On further evaluation patient was found to have PVCs and tachycardia, was admitted for cardiology evaluation. 04/24/24: Podiatry consult: Patient was sitting up in bed, fixing to eat his lunch, he appears to be doing well, and denies any pain with his L TMA postop site. Hospital Course Hospital Course Hospital Course: Patient is a 69-year-old male with past medical history of diabetes mellitus morbid obesity, peripheral artery disease who presents to the hospital due to not feeling well. According the patient he has been having nausea vomiting for past 3 to 4 days, it is not improving. Patient also mentions he has been feeling tired fatigue. He has no appetite he has been feeling ill. Patient otherwise denied chest pain, fevers chills. He also denies shortness of breath normally does not walk he recently had foot surgery by podiatry for toe amputations. On further evaluation patient was found to have PVCs and tachycardia, was admitted for cardiology evaluation. Started on amiodarone. Saw improvement in heart rate. Continues to sound better andre therapy. Converted to sinus rhythm. Overall doing well. Stable for discharge home with close follow-up with cardiology. Problems addressed as follows: Ventricular tachycardia -Improved after IV and now oral amiodarone institution. Continue amiodarone orally at discharge. Converted to sinus rhythm. Continue metoprolol succinate 25 mg daily as well. Echo EF 45% with mild global hypokinesis. No significant valve disease. CAD with prior coronary stenting: -Troponins normal this admission. Taken for left heart cath however, found to have significant disease in his LAD. S/p Cath per cardiology, 3 JACOBO in LAD placed, continue on ASA 81mg and Plavix 75mg daily PAD with prior right AKA and left transmetatarsal amputation: Continue aspirin and Plavix Hyperlipidemia: Continue statin therapy Diabetes: Treated with sliding scale insulin and basal during admission. To resume home regimen at discharge. Most recent A1c of 6.3 on 03/04. Continue home Lamictal for seizure disorder Hemoglobin within his normal range at 7.9 on day of discharge. No indication for transfusion at this time. Chronic in nature. Left TMA/ I&D, sx. 03/28/24 -Completed 14 days of linezolid during admission. Cellulitis looking better. No further antibiotics at this time. Plan for follow-up with podiatry and reevaluate in the office.. Patient has continued to make it clear he does not want further amputation. Concern his infection will recur, stressed this to the patient. Total time spent on discharge 36 minutes in counseling, documentation, chart review, and direct care with patient. Exam Data for Last 24 hours Vital signs and Labs for Last 24 Hours: Temp Pulse Resp BP Pulse Ox O2 Del Method 98.2 F 81 20 141/69 H 98 Room Air 04/25/24 08:00 04/25/24 08:00 04/25/24 08:00 04/25/24 08:00 04/25/24 08:00 04/25/24 12:04 Laboratory Results - last 24 hr 04/24/24 05:30: POC Glucose 160 H 04/24/24 12:03: POC Glucose 154 H 04/24/24 13:41: Activated Clotting Time 280 H* 04/24/24 14:22: Activated Clotting Time 246 H* 04/24/24 16:27: POC Glucose 134 H 04/24/24 22:49: POC Glucose 218 H 04/25/24 05:23: WBC 7.6, RBC 3.05 L, Hgb 7.9 L, Hct 25.8 L, MCV 84.7, MCH 25.8 L, MCHC 30.5 L, RDW 17.7 H, Plt Count 175, MPV 8.6, Neut % (Auto) 66.9, Lymph % (Auto) 23.0, Williams % (Auto) 4.9, Eos % (Auto) 4.7, Baso % (Auto) 0.6, Neut # (Auto) 5.1, Lymph # (Auto) 1.7, Williams # (Auto) 0.4, Eos # (Auto) 0.4, Baso # (Auto) 0.0, Sodium 135 L, Potassium 4.5, Chloride 109 H, Carbon Dioxide 23, Anion Gap 7.5, BUN 19, Creatinine 1.10, Estimated Creat Clear 101, Estimated GFR 66, Est GFR ( Amer) 80, Glucose 135 H, Calcium 7.9 L, Triglycerides 110, Cholesterol 123 L, LDL Cholesterol Direct 59.47 L, VLDL Cholesterol 22, HDL Cholesterol 31 L, Cholesterol/HDL Ratio 4.0 H 04/25/24 10:36: POC Glucose 190 H I & O for Last 24 hours: Intake & Output 04/22/24 04/23/24 04/24/24 04/25/24 23:59 23:59 23:59 23:59 Intake Total 1517.756 / 2257.756 5680 / 5680 530 / 530 270 / 270 Output Total 750 / 750 1350 / 1800 1650 / 1650 800 / 800 Balance 767.756 / 9736.121 5660 / 3880 -1120 / -1120 -530 / -530 Weight 99.79 kg 114.351 kg 113.942 kg Constitutional Constitutional: no acute distress, obese, chronically ill appearing and cooperative *Routine HEENT Exam Head: Present normocephalic Eye: Present EOMI and PERRL ENT: Present mucous membranes moist *Routine Neck Exam Neck: Present supple; Absent lymphadenopathy *Routine Respiratory Exam Respiratory: Present CTA bilaterally; Absent rhonchi, wheezes or crackles *Routine Cardiovascular Exam Cardiovascular: Present RRR *Routine Abdominal Exam Abdominal: Present soft and normoactive bowel sounds; Absent tenderness *Routine Exam Comments: Long-term in-dwelling catheter in place. *Routine Extremities Exam Extremities: Absent cyanosis, clubbing or edema Comments: right leg AKA; left forefoot amputated, in bandage *Routine Skin Exam Skin: Present erythema (Left lower extremity, chronic stasis changes) and warm; Absent rash *Routine Neurological Exam Neurological: Present alert, oriented X3 and moving all extremities; Absent altered mental status Results Data Completed and Pending Labs on day of discharge: Labs from last 24 hours 04/25/24 04/25/24 04/24/24 10:36 05:23 22:49 WBC 7.6 RBC 3.05 L Hgb 7.9 L Hct 25.8 L MCV 84.7 MCH 25.8 L MCHC 30.5 L RDW 17.7 H Plt Count 175 MPV 8.6 Neut % (Auto) 66.9 Lymph % (Auto) 23.0 Williams % (Auto) 4.9 Eos % (Auto) 4.7 Baso % (Auto) 0.6 Neut # (Auto) 5.1 Lymph # (Auto) 1.7 Williams # (Auto) 0.4 Eos # (Auto) 0.4 Baso # (Auto) 0.0 Activated Clotting Time Sodium 135 L Potassium 4.5 Chloride 109 H Carbon Dioxide 23 Anion Gap 7.5 BUN 19 Creatinine 1.10 Estimated Creat Clear 101 Estimated GFR 66 Est GFR ( Amer) 80 Glucose 135 H POC Glucose 190 H 218 H Calcium 7.9 L Triglycerides 110 Cholesterol 123 L LDL Cholesterol Direct 59.47 L VLDL Cholesterol 22 HDL Cholesterol 31 L Cholesterol/HDL Ratio 4.0 H 04/24/24 04/24/24 04/24/24 16:27 14:22 13:41 WBC RBC Hgb Hct MCV MCH MCHC RDW Plt Count MPV Neut % (Auto) Lymph % (Auto) Williams % (Auto) Eos % (Auto) Baso % (Auto) Neut # (Auto) Lymph # (Auto) Williams # (Auto) Eos # (Auto) Baso # (Auto) Activated Clotting Time 246 H* 280 H* Sodium Potassium Chloride Carbon Dioxide Anion Gap BUN Creatinine Estimated Creat Clear Estimated GFR Est GFR ( Amer) Glucose POC Glucose 134 H Calcium Triglycerides Cholesterol LDL Cholesterol Direct VLDL Cholesterol HDL Cholesterol Cholesterol/HDL Ratio 04/24/24 04/24/24 12:03 05:30 WBC RBC Hgb Hct MCV MCH MCHC RDW Plt Count MPV Neut % (Auto) Lymph % (Auto) Williams % (Auto) Eos % (Auto) Baso % (Auto) Neut # (Auto) Lymph # (Auto) Williams # (Auto) Eos # (Auto) Baso # (Auto) Activated Clotting Time Sodium Potassium Chloride Carbon Dioxide Anion Gap BUN Creatinine Estimated Creat Clear Estimated GFR Est GFR ( Amer) Glucose POC Glucose 154 H 160 H Calcium Triglycerides Cholesterol LDL Cholesterol Direct VLDL Cholesterol HDL Cholesterol Cholesterol/HDL Ratio DS: Diagnosis Discharge Diagnosis (1) Arrhythmia: Status: Acute Code(s): I49.9 - Cardiac arrhythmia, unspecified Qualifiers: Arrhythmia type: ventricular tachycardia, unspecified Qualified Code(s): I47.20 - Ventricular tachycardia, unspecified (2) Diabetic ulcer of left heel associated with diabetes mellitus due to underlying condition, limited to breakdown of skin: Status: Acute Code(s): E08.621 - Diabetes mellitus due to underlying condition with foot ulcer; L97.421 - Non-pressure chronic ulcer of left heel and midfoot limited to breakdown of skin (3) S/P transmetatarsal amputation of foot: Status: Acute Code(s): Z89.439 - Acquired absence of unspecified foot Qualifiers: Laterality: left Qualified Code(s): Z89.432 - Acquired absence of left foot (4) Debility: Status: Acute Code(s): R53.81 - Other malaise (5) PVD (peripheral vascular disease): Status: Acute Code(s): I73.9 - Peripheral vascular disease, unspecified (6) Obesity (BMI 30-39.9): Status: Chronic Code(s): E66.9 - Obesity, unspecified (7) CAD in [place] artery: Status: Acute Code(s): I25.10 - Atherosclerotic heart disease of [place] coronary artery without angina pectoris Meds Home Medications and Allergies Home Medications ?Medication ?Instructions ?Recorded ?Confirmed ?Type aspirin 81 mg tablet,delayed 81 mg PO DAILY 04/20/23 04/22/24 History release buspirone 5 mg tablet 5 mg PO TID 04/20/23 04/22/24 History furosemide 40 mg tablet 40 mg PO DAILY Fluid 04/20/23 04/22/24 History lamotrigine 100 mg tablet 100 mg PO BID 04/20/23 04/22/24 History lamotrigine 150 mg tablet 150 mg PO HS Seizures 04/21/23 04/22/24 History insulin glargine 100 unit/mL (3 42 unit SQ HS 06/04/23 04/22/24 History mL) subcutaneous pen (Lantus Solostar U-100 Insulin) clopidogrel 75 mg tablet (Plavix) 75 mg PO DAILY #30 tabs 06/08/23 04/22/24 Rx metoprolol succinate 25 mg 25 mg PO DAILY #30 tabs 06/08/23 04/22/24 Rx tablet,extended release 24 hr atorvastatin 40 mg tablet 40 mg PO DAILY 03/03/24 04/22/24 History pantoprazole 40 mg tablet,delayed 40 mg PO DAILY 03/03/24 04/22/24 History release metoclopramide HCl 5 mg tablet 5 mg PO BID 03/27/24 04/22/24 History gabapentin 100 mg capsule 200 mg (2 x 100 mg) PO TID 30 days 04/01/24 04/22/24 Rx #180 caps baclofen 10 mg tablet 10 mg PO BIDP PRN Muscle Spasm 04/22/24 04/22/24 History sennosides 8.6 mg-docusate sodium 1 tab PO BID 04/22/24 04/22/24 History 50 mg tablet (Stimulant Laxative Plus) amiodarone 200 mg tablet 200 mg PO BID 30 days #60 tabs 04/25/24 Rx New Prescriptions to Start Prescriptions: amiodarone Feliciano Coto Allergies Allergy/AdvReac Type Severity Reaction Status Date / Time hydrocodone [From LORTAB] Allergy Unknown NA-NAUSEA/V Verified 04/22/24 00:02 OMITING codeine Allergy Verified 04/22/24 00:02 levetiracetam [From Keppra] Allergy Verified 04/22/24 00:02 tramadol AdvReac Unknown Verified 04/22/24 00:02 allergy reaction Discharge Plan Disposition Patient Disposition: Home Health Service Condition: Fair Discharge Order Discharge Orders: Discharge Order (Routine); Ordered 04/25/24 Ordered By: Feliciano Coto Follow up Plan Follow up with: Cinthia Robertson APRN [Nurse Practitioner] - 05/01/24 10:45 am Sherri Faust DPM [Staff Physician] - 05/01/24 3:45 pm Pablo English MD [Staff Physician] - 05/01/24 9:15 am Prescriptions/Medication Reconciliation: New amiodarone 200 mg Tablet 200 mg PO BID 30 Days Qty: 60 0RF Continued insulin glargine [Lantus Solostar U-100 Insulin] 100 unit/mL (3 mL) insulin pen 42 unit SQ HS metoprolol succinate 25 mg Tablet Extended Release 24 Hr 25 mg PO DAILY Qty: 30 0RF clopidogrel [Plavix] 75 mg tablet 75 mg PO DAILY Qty: 30 0RF metoclopramide HCl 5 mg tablet 5 mg PO BID Patient Comments: take 1 tab(s) orally 2 times a day before meal 30 days gabapentin 100 mg Capsule 200 mg PO TID 30 Days Qty: 180 0RF furosemide 40 mg tablet 40 mg PO DAILY Patient Comments: TAKE ONE TABLET BY MOUTH ONCE DAILY buspirone 5 mg tablet 5 mg PO TID Patient Comments: TAKE ONE TABLET BY MOUTH THREE TIMES DAILY aspirin 81 mg tablet,delayed release (DR/EC) 81 mg PO DAILY lamotrigine 100 mg tablet 100 mg PO BID Patient Comments: TAKE ONE TABLET BY MOUTH TWICE DAILY lamotrigine 150 mg tablet 150 mg PO HS Patient Comments: TAKE ONE TABLET BY MOUTH AT BEDTIME Rx Instructions: 150mg by mouth nightly with the 100mg tablet for seizures pantoprazole 40 mg Tablet,Delayed Release (Dr/Ec) 40 mg PO DAILY atorvastatin 40 mg tablet 40 mg PO DAILY Patient Comments: TAKE ONE TABLET BY MOUTH ONCE DAILY sennosides-docusate sodium [Stimulant Laxative Plus] 8.6-50 mg tablet 1 tab PO BID Patient Comments: TAKE ONE TABLET BY MOUTH TWICE DAILY baclofen 10 mg tablet 10 mg PO BIDP PRN (Reason: Muscle Spasm) Patient Comments: take 1 tab(s) orally 2 times a day as needed for muscle spasms 30 days Discontinued linezolid [Zyvox] 600 mg tablet 600 mg PO Q12H 14 Days Qty: 28 0RF Rx Instructions: STARTED 04/10, FOR 14 DAYS. Problem Reconciliation Problems Reviewed?: Yes Patient Discharge Instructions ACTIVITY: Up with assistance DIET: continue same diet and diabetic diet Patient Instructions: DI for Pressure Injuries, DI for Arrhythmias, Catheter-Associated Urinary Tract Infection Print Language: Turkmen Providers Primary Care Provider: Gustavo Leggett Provider: Rosio Glez Attending Provider: Rosio Glez
--- NOTE | 2024-04-25 15:19 | PC.NURSE ---
Meplix's replaced on buttock.
[2024-04-25 16:00] VITALS: BP 116/61; PULSE 74; RESP 20; TEMP 36.6; O2SAT 97
[2024-04-25 20:00] VITALS: BP 126/66; PULSE 75; RESP 18; TEMP 36.4; O2SAT 96
--- NOTE | 2024-04-25 21:28 | PC.NURSE ---
patient left via ems. belongings and home meds sent with patient.
--- NOTE | 2024-04-27 13:55 | CARE MANAGER ---
Contacted patient and he states he feels bad. He is tired and sick to his stomach. HH is coming at 2pm and they will assess him. He is aware of follow up appointments but is going to reschedule 2 of them. He denies any questions or concerns. JESSEE Hunter
[2024-04-29 05:06] LABS: POC Glucose,Bedside 143 (70-110)
[2024-04-29 05:06] LABS: POC Glucose,Bedside 181 (70-110)
== END 2024-04-25 21:25 | disposition home health service (06) | DRG 325 ==
LOC: ER 04-22 05:48 → 2ND 04-22 08:07
PROVIDERS: Internal Medicine; Nurse Practitioner Family; Physician Assistant; Podiatrist; Admitting Provider Internal Medicine; Emergency Provider Emergency Medicine; PCP Internal Medicine Adolescent Medicine; Visit Provider Internal Medicine
PROC: 02F03ZZ Fragmentation in Coronary Artery, One Artery, Percutaneous Approach (ICD-10-PCS; principal; 2024-04-24 12:40)
DX: L03.116 Cellulitis of left lower limb (principal); L97.421 Non-pressure chronic ulcer of left heel and midfoot limited to breakdown of skin; L03.115 Cellulitis of right lower limb; I47.20 Ventricular tachycardia, unspecified; I25.10 Atherosclerotic heart disease of native coronary artery without angina pectoris; I73.9 Peripheral vascular disease, unspecified; I49.9 Cardiac arrhythmia, unspecified; E11.621 Type 2 diabetes mellitus with foot ulcer; E78.2 Mixed hyperlipidemia; I10 Essential (primary) hypertension; E66.9 Obesity, unspecified; Z68.34 Body mass index [BMI] 34.0-34.9, adult; Z79.899 Other long term (current) drug therapy; G40.909 Epilepsy, unspecified, not intractable, without status epilepticus; I89.0 Lymphedema, not elsewhere classified; I77.1 Stricture of artery; I25.84 Coronary atherosclerosis due to calcified coronary lesion; Z79.4 Long term (current) use of insulin; D64.89 Other specified anemias; Z91.148 Patient's other noncompliance with medication regimen for other reason; Z89.611 Acquired absence of right leg above knee; Z89.422 Acquired absence of other left toe(s); Z73.89 Other problems related to life management difficulty; M48.02 Spinal stenosis, cervical region; M48.061 Spinal stenosis, lumbar region without neurogenic claudication
CPT/HCPCS: 36415; 51702; 74177; 80048; 80053; 80061; 81001; 82962; 83605; 83690; 83735; 84484; 85025; 85347; 85610; 85651; 86140; 92928; 92972; 92978; 93005; 93270; 93272; 93306; 99152; 99153; 99291; C1725; C1761; C1769; C1874; C9600; J0282; J1200; J1644; J2250; J2270; J2405; J2550; J3010; J7060; J7120; J7620; Q9967

== ENCOUNTER 2024-04-27 19:21 | Observation (INO) | payer MEDICARE, SELFPAY ==
[2024-04-27 19:21] VITALS: BP 137/77; PULSE 73; RESP 21; TEMP 36.7; O2SAT 95; BMI 33.6
--- NOTE | 2024-04-27 19:25 | ECG_ITS ---
APPROVED REPORT Exam: Resting ECG HR:86 bpm ECG Measurements Heart Rate 86 AXES OH 159 P 77 QRSd 102 QRS 85 QT 364 T 48 QTc 407 Conclusion SINUS RHYTHM WITH FREQUENT VENTRICULAR PREMATURE COMPLEXES NONSPECIFIC T-WAVE ABNORMALITY ABNORMAL RHYTHM ECG Electronically signed by : LYLA TRIVEDI, 04/28/2024 00:00:14
--- NOTE | 2024-04-27 19:38 | XR_ITS ---
PROCEDURE INFORMATION: Exam: XR Chest Exam date and time: 04/27/2024 7:48 PM Age: 69 years old Clinical indication: Other: General weakness; Additional info: Nausea, chills, general weak TECHNIQUE: Imaging protocol: Radiologic exam of the chest. Views: 1 view. COMPARISON: CR XR CHEST PORTABLE PICC PLAC 03/30/2024 1:37 PM FINDINGS: Tubes, catheters and devices: . A battery pack overlies the right upper lobe, mildly obscuring visualization. Lungs: There is mild elevation of the right hemidiaphragm. Lung volumes are mildly diminished. The lungs appear clear. No focal areas of consolidation. Pleural spaces: No pleural effusions. Negative for pneumothorax. Heart/Mediastinum: Pulmonary vasculature is within range of normal. The heart is borderline enlarged. Bones/joints: There is no evidence of acute fracture. The thoracic spine demonstrates mild degenerative changes at multiple levels. IMPRESSION: Negative for an acute cardiopulmonary abnormality.
--- NOTE | 2024-04-27 19:41 | HMH.EDGENADL ---
Discharge Plan Disposition Patient Disposition: Admitted Condition: Fair Clinical Impressions Clinical Impression: General weakness, Acute exacerbation of CHF (congestive heart failure), Elevated troponin, Frequent PVCs Discharge ED Provider: Jamee Tan General Adult HPI General Chief complaint: Weakness Stated complaint: weakness Time Seen by Provider: 04/27/24 19:33 Mode of Arrival: EMS Source of Information: Patient and EMS Limitations: Physical Limitations Description of Symptoms (Recalled from ER Triage Doc. by RN): Pt to ED via EMS with c/o weakness, and decreased appetite since wednesday. EMS reports he was DC from here on wednesday and he had a heart cath with stents while he was here. Pt denies CP, SOA, N/V. FSBS 128 in route. History of Present Illness HPI narrative: This patient is a 69-year-old male with a history of type 2 diabetes, CAD status post recent stenting 04/24/2024, hypertension, hyperlipidemia, decubitus ulcer, right AKA, chronic left foot wounds managed by podiatry presenting to the emergency department for evaluation with concern for general weakness. Patient has in-home caregivers and had home health come to his house today, and home health advised that he come in for evaluation. Patient states that he has been feeling very generally weak since discharge home from the hospital on Wednesday. He notes that he is too weak to hold his head up. He states that he has had decreased appetite and significant nausea. He has had chills. No fevers, chest pain, shortness of breath, or significant abdominal pain. On review of systems, he does complain of some left low back pain around his left hip. He notes his foot wounds are doing well. No other specific concerns or complaints noted at this time. Patient arrives by EMS who noted he was stable en route. Of note, patient does have chronic indwelling De Los Santos catheter. Related Data Home Medications ?Medication ?Instructions ?Recorded ?Confirmed aspirin 81 mg tablet,delayed 81 mg PO DAILY 04/20/23 04/22/24 release buspirone 5 mg tablet 5 mg PO TID 04/20/23 04/22/24 furosemide 40 mg tablet 40 mg PO DAILY Fluid 04/20/23 04/22/24 lamotrigine 100 mg tablet 100 mg PO BID 04/20/23 04/22/24 lamotrigine 150 mg tablet 150 mg PO HS Seizures 04/21/23 04/22/24 insulin glargine 100 unit/mL (3 42 unit SQ HS 06/04/23 04/22/24 mL) subcutaneous pen (Lantus Solostar U-100 Insulin) atorvastatin 40 mg tablet 40 mg PO DAILY 03/03/24 04/22/24 pantoprazole 40 mg tablet,delayed 40 mg PO DAILY 03/03/24 04/22/24 release metoclopramide HCl 5 mg tablet 5 mg PO BID 03/27/24 04/22/24 baclofen 10 mg tablet 10 mg PO BIDP PRN Muscle Spasm 04/22/24 04/22/24 sennosides 8.6 mg-docusate sodium 1 tab PO BID 04/22/24 04/22/24 50 mg tablet (Stimulant Laxative Plus) Previous Rx's ?Medication ?Instructions ?Recorded clopidogrel 75 mg tablet (Plavix) 75 mg PO DAILY #30 tabs 06/08/23 metoprolol succinate 25 mg 25 mg PO DAILY #30 tabs 06/08/23 tablet,extended release 24 hr gabapentin 100 mg capsule 200 mg (2 x 100 mg) PO TID 30 days 04/01/24 #180 caps amiodarone 200 mg tablet 200 mg PO BID 30 days #60 tabs 04/25/24 Allergies Allergy/AdvReac Type Severity Reaction Status Date / Time hydrocodone [From LORTAB] Allergy Unknown NA-NAUSEA/V Verified 04/22/24 00:02 OMITING codeine Allergy Verified 04/22/24 00:02 levetiracetam [From Keppra] Allergy Verified 04/22/24 00:02 tramadol AdvReac Unknown Verified 04/22/24 00:02 allergy reaction [facility] Disclaimer: The information contained in this section may have been updated after the patient was seen, as this information can be updated by other users. Medical History Seizure CAD in [place] artery Acute febrile illness Atrial flutter Bilateral cellulitis of lower leg Cellulitis Diabetes mellitus Dystrophia unguium Fatigue Fever Infestation by fly larvae Lymphedema of both lower extremities Malaise Obesity with body mass index (BMI) of 30.0 to 39.9 Peripheral vascular disease Renal insufficiency Spinal stenosis of cervical region Spinal stenosis of lumbar region Systemic inflammatory response syndrome (SIRS) Ulcers of both lower extremities Uncontrolled diabetes mellitus History of left heart catheterization (LHC) Surgical History History of amputation H/O Spinal surgery Family History Mother Breast cancer Family history of myocardial infarction Social History Smoking Status: Never smoker alcohol intake: never substance use type: marijuana current occupational status: retired and disabled Travel in the last 8 weeks: None household members: family caffeine: No ROS Obtained: Yes All systems reviewed & no additional complaints except as documented Physical Exam General General appearance: alert, in no apparent distress and obese Comment: Pale Head Head exam: atraumatic and normocephalic Eye Eye exam: Present normal appearance, PERRL and EOMI ENT ENT exam: Present mucous membranes dry and normal external ear exam Neck Neck exam: Present normal inspection, full ROM and trachea midline; Absent tenderness Chest Chest inspection: Present normal inspection and symmetric chest wall rise; Absent tenderness Respiratory Respiratory exam: Present normal lung sounds bilaterally; Absent respiratory distress, wheezes, stridor or accessory muscle use Cardiovascular Cardiovascular exam: Present regular rate and normal rhythm Abdominal Exam Abdominal exam: Present soft; Absent distention, tenderness or guarding Extremities Exam Extremities exam: Present normal capillary refill and edema (Left lower extremity edema. Right lower extremity AKA.); Absent tenderness Back Exam Back exam: Present normal inspection and full ROM; Absent tenderness Neurological Exam Neurological exam: Present alert, oriented X3 and CN II-XII intact; Absent motor sensory deficit Psychiatric Psychiatric exam: Present normal affect and normal mood Skin Skin exam: Present warm, dry and pallor Medical Decision Making Medical Records Medical records reviewed: Yes I reviewed the patient's medical records. Lex Inquiry Pt receiving controlled substance: No Vital Signs: 04/27/24 19:21 04/27/24 22:41 Temperature 98.1 F 98.1 F Temperature Source Oral Oral Pulse Rate 73 Pulse Rate [Apical] 73 Respiratory Rate 21 13 Blood Pressure 124/54 L Blood Pressure [Right Arm] 137/77 Blood Pressure Mean [Right Arm] 97 Blood Pressure Source Automatic Cuff Blood Pressure Source [Right Arm] Automatic Cuff Blood Pressure Position Supine Blood Pressure Position [Right Arm] Sitting 02 Sat by Pulse Oximetry 95 Oxygen Delivery Method Room Air Room Air Lab Data Lab results reviewed: Yes I reviewed the patient's lab results. Lab Results 04/27/24 19:38: VBG pH 7.43 H, VBG pCO2 32.3 L, VBG pO2 49.1 H, VBG HCO3 21.2 L, VBG Total CO2 22.1 L, VBG O2 Saturation 84.4 H, VBG Base Excess -3.1 L, VBG Lactic Acid 2.8 H 04/27/24 19:40: WBC 5.7, RBC 3.14 L, Hgb 8.3 L, Hct 25.8 L, MCV 82.3, MCH 26.6 L, MCHC 32.3, RDW 17.4, Plt Count 151, MPV 8.8, Neut % (Auto) 64.8, Lymph % (Auto) 24.2, Mcleod % (Auto) 6.4, Eos % (Auto) 3.9, Baso % (Auto) 0.8, Neut # (Auto) 3.7, Lymph # (Auto) 1.4, Mcleod # (Auto) 0.4, Eos # (Auto) 0.2, Baso # (Auto) 0.0, PT 11.0, INR 0.98, APTT 26.8, Sodium 135 L, Potassium 4.2, Chloride 107, Carbon Dioxide 19 L, Anion Gap 13.2, BUN 18, Creatinine 0.80 D, Estimated Creat Clear 109, Estimated GFR 96, Est GFR ( Amer) 116 D, Glucose 162 H, Calcium 8.5, Total Bilirubin 0.7, AST 35, ALT 22, Alkaline Phosphatase 72, Troponin I 0.64 H, C-Reactive Protein 28.7 H, NT-Pro-B Natriuret Pep 4430 H, Total Protein 6.7, Albumin 3.3 L, Globulin 3.4 H, Albumin/Globulin Ratio 1.0 L, Lipase 83, Procalcitonin 0.098, TSH 1.12, Thyroxine (T4) 9.3 04/27/24 19:49: SARS-CoV-2 (PCR) Not detected, Influenza A Untype (PCR) Not detected, Influenza Type B (PCR) Not detected 04/27/24 21:45: Urine Color Yellow, Urine Appearance Clear, Urine pH 6.0, Ur Specific [place] 1.020, Urine Protein 2+, Urine Glucose (UA) Negative, Urine Ketones Negative, Urine Blood 3+, Urine Nitrate Negative, Urine Bilirubin Negative, Urine Urobilinogen 0.2, Ur Leukocyte Esterase Trace, Urine RBC Tntc, Urine WBC 3-5, Urine Bacteria 1+ 04/27/24 22:33: Troponin I 0.71 H 04/27/24 19:40 04/27/24 19:40 Orders (Tests/Meds): ED MEDICATIONS Generic Name Dose Route Start Last Admin Trade Name Freerwin PRN Reason Stop Dose Admin Acetaminophen 650 mg 04/27/24 22:18 Acetaminophen 325mg Tab PO 05/27/24 22:17 Q4HP PRN Fever or Mild Pain (1-3) Ondansetron HCl 4 mg 04/27/24 22:18 Ondansetron 4mg/2ml Vial IV 05/27/24 22:17 Q8HP PRN Nausea Pantoprazole Sodium 40 mg 04/28/24 09:00 Pantoprazole 40mg Tablet PO 05/28/24 08:59 DAILY DEEPTI Discontinued Medications Generic Name Dose Route Start Last Admin Trade Name Freerwin PRN Reason Stop Dose Admin Acetaminophen 1,000 mg 04/27/24 20:20 04/27/24 20:29 Acetaminophen 1,000mg/100ml Vial IV 04/27/24 20:21 1,000 mg ONCE ONE Administration Aspirin 324 mg 04/27/24 20:20 04/27/24 20:28 Aspirin 81mg Chewable Tablet PO 04/27/24 20:21 324 mg ONCE ONE Administration Lactated Ringer's 500 mls @ 999 mls/hr 04/27/24 20:21 04/27/24 20:31 Lactated Ringer's 500ml IV 04/27/24 20:51 999 mls/hr .Q31M ONE Administration Ondansetron HCl 4 mg 04/27/24 20:20 04/27/24 20:28 Ondansetron 4mg/2ml Vial IV 04/27/24 20:21 4 mg ONCE ONE Administration ORDERS Category Date Time Status CT abdomen pelvis wo con Stat Cat Scan 04/27/24 20:34 Completed Cardiology Consult [Consult to Cardiology] [CONS] Cons 04/27/24 20:34 Active Routine CXR --portable [XR chest portable] Stat Exams 04/27/24 19:38 Completed Activated Partial Thrombo Time Stat Lab 04/27/24 19:40 Completed BNP [NT Pro Brain Natriuretic Pep.] Stat Lab 04/27/24 19:40 Completed CBC w/Auto Diff [Complete Blood Count Auto Diff] Stat Lab 04/27/24 19:40 Completed CMP [Comprehensive Metabolic Panel] Stat Lab 04/27/24 19:40 Completed CRP [C-Reactive Protein] Stat Lab 04/27/24 19:40 Completed Complete Blood Count Auto Diff AMLAB Lab 04/28/24 06:00 Ordered Comprehensive Metabolic Panel AMLAB Lab 04/28/24 06:00 Ordered Lipase Stat Lab 04/27/24 19:40 Completed Magnesium AMLAB Lab 04/28/24 06:00 Ordered PT INR [Prothrombin Time INR] Stat Lab 04/27/24 19:40 Completed Procalcitonin Stat Lab 04/27/24 19:40 Completed Rapid PCR Covid and Flu A/B Stat Lab 04/27/24 19:49 Completed T4 (Thyroxine) Stat Lab 04/27/24 19:40 Completed TSH [Thyroid Stimulating Hormone] Stat Lab 04/27/24 19:40 Completed Trop I [Troponin I] Stat Lab 04/27/24 19:40 Completed Troponin I Q3H Lab 04/27/24 22:33 Completed Troponin I Q3H Lab 04/28/24 01:45 Ordered UA [Urinalysis and Microscopic] Stat Lab 04/27/24 21:45 Completed Blood Culture Stat Micro 04/27/24 19:40 Ordered Urine Culture Stat Micro 04/27/24 19:38 Ordered VBG [Venous Blood Gas] Stat RT 04/27/24 19:38 Completed ECG Data Tracing #1: I reviewed this ECG and interpreted as documented below: Normal sinus rhythm with a ventricular rate of 86 bpm. Frequent PVCs noted no acute ST changes concerning for STEMI. Normal intervals. ECG initial impression date: 04/27/24 ECG initial impression time: 19:26 Medical Decision Narrative: In summary, this patient is a 69-year-old male presenting to the Emergency Department for evaluation of general weakness, nausea, and chills after being discharged Wednesday after recent admission for MS with stents placed 04/24/2020. Differential diagnoses considered include but are not limited to urinary tract infection, CHARLIE, dehydration, sepsis, pneumonia, acute on chronic anemia, CHF exacerbation. Ruling out the most morbid conditions drove assessment. It should be noted patient's history includes obesity, hypertension, hyperlipidemia, diabetes, CAD, chronic indwelling De Los Santos catheter, chronic wound which may or may not be at goal therapy. This complicates all aspects of care by increasing patient's risk for morbidity. I reviewed patient's past medical records and noted his recent admission and stents placed as per HPI. On exam, the patient is lying in bed in no acute distress. He is alert and oriented. Vitals are reassuring on cardiac telemetry. He is very pale with dry mucous membranes. Workup included broad lab evaluation to evaluate for infectious, metabolic, cardiac causes as well as chest x-ray. Given his flank pain, I ordered CT abdomen pelvis without IV contrast I independently interpreted x-ray prior to the radiologist read and noted no obvious acute focal consolidation. EKG was obtained demonstrated frequent PVCs but is otherwise reassuring.. Please see their read for final interpretation. Labs were obtained that demonstrated elevated troponin, elevated BNP. He has stable chronic anemia. He has mildly elevated lactic acid. At this time based on his symptoms, lab derangements in the setting of recent cath, I feel he likely has heart failure as a cause of his general weakness. I called and had an interactive discussion with Dr. Thapa with cardiology who advised admitting the patient for further evaluation and management. given this, I called and had an interactive discussion with the hospitalist who admitted the patient in stable condition. Critical Care Critical Care Time Critical Care Time: No
[2024-04-27 19:52] LABS: Coronavirus 19, PCR Not Detected (NotDetected); Influenza A, PCR Not Detected (NotDetected); Influenza B, PCR Not Detected (NotDetected)
[2024-04-27 20:01] LABS: Alanine Aminotransferase 22 U/L (12-78); Albumin Level 3.3 g/dl (3.5-5.0); Alkaline Phosphatase 72 U/L (38-126); Anion Gap 13.2 mEq/L (5-15); Aspartate Amino Transferase 35 U/L (17-59); Bilirubin,Total 0.7 mg/dl (0.2-1.3); Blood Urea Nitrogen 18 mg/dl (9-20); Calcium 8.5 mg/dl (8.4-10.2); Carbon Dioxide 19 mmol/L (22.0-30.0); Chloride 107 mmol/L (98-107); Creatinine Clearance Estimated 109 mL/min (50-200); Estimated Glomerular Filt Rate 96 ml/min (>60); GFR (African American) 116 ML/MIN (>60); Globulin 3.4 g/dL (1.3-3.2); Glucose 162 mg/dl (74-100); Lipase 83 U/L (23-300); Potassium 4.2 mmoL/L (3.5-5.1); Sodium 135 mmol/L (136-145); Total Protein,Serum 6.7 g/dl (6.3-8.2)
[2024-04-27 20:03] LABS: Lactate Venous 2.8 mmol/L (0.4-2.0); VBG Base Excess -3.1 mmol/L (-2.4-2.3); VBG HCO3 21.2 mmol/L (23-30); VBG Oxygen Saturation 84.4 % (50-70); VBG PCO2 32.3 mmol/L (35-51); VBG PH 7.43 mmol/L (7.31-7.41); VBG PO2 49.1 mmol/L (28-40); VBG Total CO2 22.1 mmol/L (23-27)
[2024-04-27 20:03] LABS: Basophils % 0.8 % (0.1-2.0); Eosinophils # 0.2 K/mm3 (0.0-0.4); Eosinophils % 3.9 % (0.1-12.0); Hematocrit 25.8 % (42.0-52.0); Hemoglobin 8.3 g/dL (14.1-18.0); Lymphocytes # 1.4 K/mm3 (0.7-4.5); Lymphocytes % 24.2 % (10-50); Mean Corpuscular HGB Conc 32.3 g/dL (31.8-35.4); Mean Corpuscular Hemoglobin 26.6 pg (27.0-31.2); Mean Corpuscular Volume 82.3 fl (80-94); Mean Platelet Volume 8.8 fl (7.4-10.4); Monocytes # 0.4 K/mm3 (0.1-1.0); Monocytes % 6.4 % (1.7-9.3); Neutrophils # 3.7 K/mm3 (1.8-7.8); Neutrophils % 64.8 % (37.0-80.0); Platelet Count 151 K/mm3 (142-424); Red Blood Count 3.14 M/mm3 (4.60-6.20); Red Cell Distribution Width 17.4 % (11.5-17.5); White Blood Count 5.7 K/mm3 (4.8-10.8)
[2024-04-27 20:06] LABS: C-Reactive Protein 28.7 mg/L (0-4)
[2024-04-27 20:11] LABS: Activated Partial Thrombo Time 26.8 seconds (22.8-30.6); INR 0.98 (0.9-1.1)
[2024-04-27 20:17] LABS: Procalcitonin 0.098 ng/mL (0.0-2.0)
[2024-04-27 20:18] LABS: Troponin I 0.64 ng/ml (0.00-0.034)
[2024-04-27 20:25] LABS: T4 (Thyroxine) 9.3 ug/dl (5.53-11.0)
[2024-04-27] MEDS: ASPIRIN 81MG CHEWABLE TABLET 324 MG PO (20:28)
[2024-04-27] MEDS: ONDANSETRON 4MG/2ML VIAL 4 MG IV (20:28)
[2024-04-27] MEDS: ACETAMINOPHEN 1,000MG/100ML VIAL 1000 MG IV (20:29)
[2024-04-27] MEDS: RINGERS SOLUTION,LACTATED 500 ML 999 ML IV (20:31)
--- NOTE | 2024-04-27 20:34 | CT_ITS ---
PROCEDURE INFORMATION: Exam: CT Abdomen And Pelvis Without Contrast Exam date and time: 04/27/2024 8:50 PM Age: 69 years old Clinical indication: Other: Flank pain; Additional info: L flank pain TECHNIQUE: Imaging protocol: Computed tomography of the abdomen and pelvis without contrast. Total images: 360 Radiation optimization: All CT scans at this facility use at least one of these dose optimization techniques: automated exposure control; mA and/or kV adjustment per patient size (includes targeted exams where dose is matched to clinical indication); or iterative reconstruction. COMPARISON: CT ABDOMEN PELVIS W CON 04/22/2024 3:34 AM FINDINGS: Lungs: Calcified right lower lobe granuloma. Left basilar scarring. No airspace consolidation. Mild bronchiectasis. Heart: Normal heart size. Coronary arteries: Severe coronary artery calcifications. Liver: Normal. No mass. Gallbladder and biliary ducts: Normal. No calcified stones. No ductal dilation. Pancreas: Mild pancreatic atrophy. No discrete mass or acute pancreatitis. Spleen: Normal. No splenomegaly. Adrenal glands: Normal. No mass. Kidneys and ureters: No hydronephrosis or nephrolithiasis. Bilateral subcentimeter renal cortical hypodensities are too small to characterize but statistically cysts requiring no strict follow-up. Stable minor bilateral perinephric fat stranding. No ureteral stones. Stomach and bowel: Collapsed stomach. Unremarkable duodenum. No ileus or bowel obstruction. Unremarkable small bowel. Unremarkable colon. Probable rectocele. Appendix: Normal appendix. Intraperitoneal space: Unremarkable. No free air. No significant fluid collection. Vasculature: Moderate atherosclerotic vascular disease. Nonaneurysmal abdominal aorta. Status post IVC filter. Lymph nodes: Unremarkable. No enlarged lymph nodes. Urinary bladder: Suspect significant bladder wall thickening, greater than expected for incomplete distension. Mild perivesicular edema. Reproductive: Unremarkable as visualized. Bones/joints: Severe degenerative changes thoracolumbar spine. Chronic wedge compression deformities T11 and T12 vertebral bodies. Severe degenerative changes bilateral hips. Sclerotic bone islands in the pelvis and sacrum. Soft tissues: Left greater than right fat containing inguinal hernias. Small fat containing umbilical hernia. Benign pelvic calcification likely sequela of remote fat necrosis. Other findings: Hypoattenuating intravascular blood pool concerning for anemia. IMPRESSION: 1. Significant bladder wall thickening, greater than expected for incomplete distension. Cannot exclude neoplasm. Recommend direct visualization. 2. No nephrolithiasis or obstructive uropathy. 3. Probable rectocele. 4. Fat containing bilateral inguinal and umbilical hernias. 5. Additional stable chronic and incidental findings. COMMENTS: 1. For patients with an IVC filter, recommend assessment for a management plan for the patient's IVC filter. If there is no established management plan, recommend referral to an interventional clinician on a nonemergent basis for evaluation. 2. Consistent with the [employer]'s Incidental Findings Committee white paper (J Am Miguelangel Radiol 2018): Any incidental renal lesion less than 1 cm or classified as too small to characterize, or any incidental cystic renal lesion characterized as simple-appearing, is likely benign. No follow-up imaging is recommended for these lesions per consensus recommendations based on imaging criteria.
--- NOTE | 2024-04-27 20:35 | PC.NURSE ---
Dr. Tan spoke with Elier regarding elevated troponin
[2024-04-27 20:39] LABS: Thyroid Stimulating Hormone 1.12 uIU/mL (0.465-4.68)
[2024-04-27 20:40] LABS: NT Pro Brain Natriuretic Pep. 4430 pg/mL (0-125)
--- NOTE | 2024-04-27 20:54 | PC.NURSE ---
Per MD Tan DC current ambrose and insert new one and obtain sterile UA. Ambrose DC and attempted to re-insert new ambrose. Ambrose advanced approx 1-2 inches from hub, resistance met when attempted to inflate ambrose balloon by this RN and Rich Almaguer RN. Ambrose pulled back and resistance still met. Did not attempt to inflate any further and DC ambrose.
[2024-04-27 21:46] LABS: Microscopic, Urine URINE MICROSCOPIC (MICROSCOPIC)
--- NOTE | 2024-04-27 21:47 | PC.NURSE ---
12 Fr Coude catheter placed at this time by A Suzan RN. This RN assisted, no difficulty noted. Sterile UA sent to lab
[2024-04-27 21:51] LABS: Appearance,Urine CLEAR (Clear); Bilirubin,Urine Negative (Negative); Blood, Urine 3+ (Negative); Color,Urine YELLOW (Yellow); Glucose,Urine (UA) Negative (Negative); Ketones,Urine Negative (Negative); Leukocyte Esterase,Urine TRACE (Negative); Nitrate,Urine Negative (Negative); Protein,Urine 2+ (Negative); Urobilinogen,Urine 0.2 EU/dl (0.2)
[2024-04-27 22:08] LABS: Bacteria,Urine 1+ /lpf; RBC,Urine TNTC #/hpf (0-3)
--- NOTE | 2024-04-27 22:21 | P.HP_ITS ---
History of Present Illness *Admission Date: 04/27/24 *Reason for visit:: increased weakness *History of present illness: This is a well known 69-year-old male with PMHx of type 2 diabetes, CAD status post recent stenting 04/24/2024, hypertension, hyperlipidemia, decubitus ulcer, right AKA, chronic left foot wounds managed by podiatry, recently discharged two days ago with services; presented to the emergency department for evaluation with concern for general weakness. Patient stated that her home health nurse come to his house today, and advised him to come in for evaluation. Patient states that he has been feeling very generally weak, unable to perform his ALDs at home and even to hold head up since discharge home from the hospital. He states that he has had decreased appetite and significant nausea. He has had chills. No fevers, chest pain, shortness of breath, or significant abdominal pain. On review of systems, he does complain of some left low back pain around his left hip. He notes his foot wounds are doing well. No other specific concerns or complaints noted at this time. Patient arrives by EMS who noted he was stable en route. [facility] Disclaimer: The information contained in this section may have been updated after the patient was seen, as this information can be updated by other users. Medical History Seizure CAD in [place] artery Acute febrile illness Atrial flutter Bilateral cellulitis of lower leg Cellulitis Diabetes mellitus Dystrophia unguium Fatigue Fever Infestation by fly larvae Lymphedema of both lower extremities Malaise Obesity with body mass index (BMI) of 30.0 to 39.9 Peripheral vascular disease Renal insufficiency Spinal stenosis of cervical region Spinal stenosis of lumbar region Systemic inflammatory response syndrome (SIRS) Ulcers of both lower extremities Uncontrolled diabetes mellitus History of left heart catheterization (LHC) Surgical History History of amputation H/O Spinal surgery Family History Mother Breast cancer Family history of myocardial infarction Social History Smoking Status: Never smoker alcohol intake: never substance use type: marijuana current occupational status: retired and disabled Travel in the last 8 weeks: None household members: family caffeine: No Review of Systems Review of Systems Review of systems:: pertinent systems reviewed and negative unless documented below Meds Home Medications and Allergies Home Medications ?Medication ?Instructions ?Recorded ?Confirmed ?Type aspirin 81 mg tablet,delayed 81 mg PO DAILY 04/20/23 04/28/24 History release buspirone 5 mg tablet 5 mg PO TID 04/20/23 04/28/24 History furosemide 40 mg tablet 40 mg PO DAILY Fluid 04/20/23 04/28/24 History lamotrigine 100 mg tablet 100 mg PO BID 04/20/23 04/28/24 History lamotrigine 150 mg tablet 150 mg PO HS 04/21/23 04/28/24 History insulin glargine 100 unit/mL (3 42 unit SQ HS 06/04/23 04/28/24 History mL) subcutaneous pen (Lantus Solostar U-100 Insulin) clopidogrel 75 mg tablet (Plavix) 75 mg PO DAILY #30 tabs 06/08/23 04/28/24 Rx metoprolol succinate 25 mg 25 mg PO DAILY #30 tabs 06/08/23 04/28/24 Rx tablet,extended release 24 hr atorvastatin 40 mg tablet 40 mg PO HS 03/03/24 04/28/24 History pantoprazole 40 mg tablet,delayed 40 mg PO DAILY 03/03/24 04/28/24 History release metoclopramide HCl 5 mg tablet 5 mg PO BIDWMEAL 03/27/24 04/28/24 History gabapentin 100 mg capsule 200 mg (2 x 100 mg) PO TID 30 days 04/01/24 04/28/24 Rx #180 caps baclofen 10 mg tablet 10 mg PO BIDP PRN Muscle Spasms 04/22/24 04/28/24 History sennosides 8.6 mg-docusate sodium 1 tab PO BID 04/22/24 04/28/24 History 50 mg tablet (Stimulant Laxative Plus) amiodarone 200 mg tablet 200 mg PO BID 30 days #60 tabs 04/25/24 04/28/24 Rx losartan 50 mg tablet 50 mg PO DAILY 04/28/24 04/28/24 History New Prescriptions to Start Prescriptions: Allergies Allergy/AdvReac Type Severity Reaction Status Date / Time hydrocodone [From LORTAB] Allergy Unknown NA-NAUSEA/V Verified 04/22/24 00:02 OMITING codeine Allergy Verified 04/22/24 00:02 levetiracetam [From [facility]] Allergy Verified 04/22/24 00:02 tramadol AdvReac Unknown Verified 04/22/24 00:02 allergy reaction Exam Data for Last 24 hours Vital signs and Labs for Last 24 Hours: Temp Pulse Resp BP Pulse Ox O2 Del Method 98.1 F 73 21 137/77 95 Room Air 04/27/24 19:21 04/27/24 19:21 04/27/24 19:21 04/27/24 19:21 04/27/24 19:21 04/27/24 19:21 Laboratory Results - last 24 hr 04/27/24 19:38: VBG pH 7.43 H, VBG pCO2 32.3 L, VBG pO2 49.1 H, VBG HCO3 21.2 L, VBG Total CO2 22.1 L, VBG O2 Saturation 84.4 H, VBG Base Excess -3.1 L, VBG Lactic Acid 2.8 H 04/27/24 19:40: WBC 5.7, RBC 3.14 L, Hgb 8.3 L, Hct 25.8 L, MCV 82.3, MCH 26.6 L , MCHC 32.3, RDW 17.4, Plt Count 151, MPV 8.8, Neut % (Auto) 64.8, Lymph % (Auto) 24.2, [place] % (Auto) 6.4, Eos % (Auto) 3.9, Baso % (Auto) 0.8, Neut # (Auto) 3.7, Lymph # (Auto) 1.4, [place] # (Auto) 0.4, Eos # (Auto) 0.2, Baso # (Auto) 0.0, PT 11.0, INR 0.98, APTT 26.8, Sodium 135 L, Potassium 4.2, Chloride 107, Carbon Dioxide 19 L, Anion Gap 13.2, BUN 18, Creatinine 0.80 D, Estimated Creat Clear 109, Estimated GFR 96, Est GFR ( Amer) 116 D, Glucose 162 H, Calcium 8.5, Total Bilirubin 0.7, AST 35, ALT 22, Alkaline Phosphatase 72, Troponin I 0.64 H, C-Reactive Protein 28.7 H, NT-Pro-B Natriuret Pep 4430 H, Total Protein 6.7, Albumin 3.3 L, Globulin 3.4 H, Albumin/Globulin Ratio 1.0 L, Lipase 83, Procalcitonin 0.098, TSH 1.12, Thyroxine (T4) 9.3 04/27/24 19:49: SARS-CoV-2 (PCR) Not detected, Influenza A Untype (PCR) Not detected, Influenza Type B (PCR) Not detected 04/27/24 21:45: Urine Color Yellow, Urine Appearance Clear, Urine pH 6.0, Ur Specific [place] 1.020, Urine Protein 2+, Urine Glucose (UA) Negative, Urine Ketones Negative, Urine Blood 3+, Urine Nitrate Negative, Urine Bilirubin Negative, Urine Urobilinogen 0.2, Ur Leukocyte Esterase Trace, Urine RBC Tntc, Urine WBC 3-5, Urine Bacteria 1+ I & O for Last 24 hours: Intake & Output 04/24/24 04/25/24 04/26/24 04/27/24 23:59 23:59 23:59 23:59 Weight 112.491 kg Constitutional Constitutional: no acute distress *Routine HEENT Exam Head: Present normocephalic Eye: Present EOMI and PERRL ENT: Present mucous membranes moist *Routine Neck Exam Neck: Present supple; Absent lymphadenopathy *Routine Respiratory Exam Respiratory: Present CTA bilaterally *Routine Cardiovascular Exam Cardiovascular: Present RRR *Routine Abdominal Exam Abdominal: Present soft and normoactive bowel sounds; Absent tenderness *Routine Rectal Exam Rectal:: deferred *Routine Genitalia Exam Genitalia:: deferred *Routine Extremities Exam Extremities: Absent cyanosis, clubbing or edema Comments: RLE amputated and LLR metatarsal amputation *Routine Skin Exam Skin: Present warm; Absent rash *Routine Neurological Exam Neurological: Present alert and oriented X3 H&P: Result Imaging and Cardiology EKG: Status: image reviewed by me, Preliminary report and final report Chest x-ray: Status: image reviewed by me, Preliminary report and final report CT scan - abdomen: Status: image reviewed by me, Preliminary report and final report Assessment and Plan *Assessment and plan (1) Acute exacerbation of CHF (congestive heart failure): Status: Acute Qualifiers: Heart failure type: unspecified Qualified Code(s): I50.9 - Heart failure, unspecified Category: Medical Code(s): I50.9 - Heart failure, unspecified (2) Elevated troponin: Status: Acute Category: Medical Code(s): R79.89 - Other specified abnormal findings of blood chemistry (3) Arrhythmia: Status: Acute Qualifiers: Arrhythmia type: ventricular tachycardia, unspecified Qualified Code(s): I47.20 - Ventricular tachycardia, unspecified Category: Medical Code(s): I49.9 - Cardiac arrhythmia, unspecified (4) Diabetic ulcer of left heel associated with diabetes mellitus due to underlying condition, limited to breakdown of skin: Status: Acute Category: Medical Code(s): E08.621 - Diabetes mellitus due to underlying condition with foot ulcer; L97.421 - Non-pressure chronic ulcer of left heel and midfoot limited to breakdown of skin (5) S/P transmetatarsal amputation of foot: Status: Acute Qualifiers: Laterality: left Qualified Code(s): Z89.432 - Acquired absence of left foot Category: Surgical Code(s): Z89.439 - Acquired absence of unspecified foot (6) HLD (hyperlipidemia): Status: Chronic Qualifiers: Hyperlipidemia type: mixed hyperlipidemia Qualified Code(s): E78.2 - Mixed hyperlipidemia Category: Medical Code(s): E78.5 - Hyperlipidemia, unspecified (7) HTN (hypertension): Status: Chronic Qualifiers: Hypertension type: primary hypertension Qualified Code(s): I10 - Essential (primary) hypertension Category: Medical Code(s): I10 - Essential (primary) hypertension (8) PVD (peripheral vascular disease): Status: Acute Category: Medical Code(s): I73.9 - Peripheral vascular disease, unspecified (9) General weakness: Status: Acute Category: Medical Code(s): R53.1 - Weakness Plan 69-year-old male with PMHx of type 2 diabetes, CAD status post recent stenting 04/24/2024, hypertension, hyperlipidemia, decubitus ulcer, right AKA, chronic left foot wounds managed by podiatry, recently discharged two days ago with services; presented to the emergency department for evaluation with concern for general weakness. Patient also mentions he has been feeling tired fatigue. He has no appetite he has been feeling ill. Patient otherwise denied chest pain, fevers chills. On further evaluation patient was found to have PVCs and tachycardia, was admitted for cardiology evaluation. Assessment and plan Acute exacerbation of CHF. preserved EF. arrhythmia, PVCs CAD s/p recent stent x3 Admit for cardiac monitoring. Monitor on cardiac telemetry cardiology consult recently stated on amiodarone on lasix 40 mg daily. further diuresis deferred to cardiology team Check a level, magnesium level Monitor and replace electrolytes Resume home aspirin, statin BC and UA pending trend troponin. \ last left cardiac cath 04/24 Severe disease in the proximal LAD with successful intravascular lithotripsy followed by 3 contiguous drug-eluting stents reducing the critical disease to less than 10% Successful intravascular ultrasound to help size the balloons and stents for the vessel Chronically occluded distal LAD which fills via [id number] and right to left collaterals Preserved ejection fraction Borderline LVEDP Diabetic ulcer of the left heel status post transmetatarsal amputation of the foot recommendation from workforce specialist: has mild recurrent left lower leg cellulitis. -skin/wounds were cleansed. -dsg change: betadine soaked gauze, kerlix and jeffery wrap applied. -maintain dressing clean dry and intact. -wound care per nursing to do every other day dressing changes as stated above while inpatient. monitor off abx Diabetes mellitus. A1c 6.3. Insulin sliding scale monitor BS resumen home insuline regimen HTN HLD - resume home meds DVT PPx - lovenox Full code Rounded on patient after nurse practitioner. Personally examined and interviewed patient. Agree with exam findings and care plan as documented.
--- NOTE | 2024-04-27 22:35 | PC.NURSE ---
report called to [facility]
[2024-04-27 22:41] VITALS: BP 124/54; PULSE 73; RESP 13; TEMP 36.7; O2SAT 94
[2024-04-27 22:45] VITALS: BP 127/55; PULSE 69; RESP 13; TEMP 36.8; O2SAT 97; BMI 31.8
--- NOTE | 2024-04-27 22:49 | PC.NURSE ---
Patient arrived to floor via stretcher from ED at 22:45
[2024-04-27 23:04] VITALS: PULSE 70
[2024-04-27 23:05] LABS: Troponin I 0.71 ng/ml (0.00-0.034)
[2024-04-27 23:30] LABS: Reflex Lactic Add Lactic Reflex
[2024-04-27 23:58] LABS: Lactic Acid Follow Up (RFLX 1) 1.5 mmol/L (0.7-2.1)
[2024-04-28] VITALS (8 sets, daily range): BP systolic 108–141; BP diastolic 39–70; PULSE 60–90; RESP 16–18; TEMP 36.4–36.9; O2SAT 94–98; BMI 34.5
[2024-04-28 01:56] LABS: Troponin I 0.71 ng/ml (0.00-0.034)
--- NOTE | 2024-04-28 05:05 | PC.NURSE ---
Pt glucose level is 167 this am pt is NPO and admits to not eating for 48 hours. Pt insulin held at this time to avoid hypoglycemia
[2024-04-28] MEDS: BACLOFEN 10MG TABLET 10 MG PO (05:13)
[2024-04-28] MEDS: ONDANSETRON 4MG/2ML VIAL 4 MG IV (05:14)
[2024-04-28 05:35] LABS: POC Glucose,Bedside 167 (70-110)
--- NOTE | 2024-04-28 05:35 | PC.NURSE ---
Pt is alert and oriented x4 and currently tolerating RA well. Pt is on telemetry with a NSR and frequent PVC's (MD aware), pt troponin levels continue to trend upwards and are critical (0.64, 0.71, 0.71) . Pt has slept well since admission and admits to being extremely weak. Pt admits to not eating for close to 48 hours d/t nausea. Pt skin color is pale and coccyx is excoriated, barrier cream applied. Pt has a open wound on left buttocks which is packed with a foam dressing. pt has a left partial foot amputation, skin around incision site appears to be blackened and stitches remain in place. Pt left foot is dressed in xeroform, gauze, curlex and a jeffery bandage. Pt also has large bruising to his abdomen. [place] 12 F caude cath is in place, and urine is flowing freely. Pt c/o back pain/spasms and nausea, pt was treated per MAR. Pt denies all other needs at this time and has had no other acute changes to note.
[2024-04-28] MEDS: FUROSEMIDE 100MG/10ML VIAL 60 MG IV (06:52)
[2024-04-28 06:54] LABS: Basophils % 0.8 % (0.1-2.0); Eosinophils # 0.3 K/mm3 (0.0-0.4); Eosinophils % 5.8 % (0.1-12.0); Hematocrit 26.8 % (42.0-52.0); Hemoglobin 8.2 g/dL (14.1-18.0); Lymphocytes # 1.3 K/mm3 (0.7-4.5); Lymphocytes % 28.8 % (10-50); Mean Corpuscular HGB Conc 30.5 g/dL (31.8-35.4); Mean Corpuscular Hemoglobin 25.8 pg (27.0-31.2); Mean Corpuscular Volume 84.4 fl (80-94); Mean Platelet Volume 8.8 fl (7.4-10.4); Monocytes # 0.3 K/mm3 (0.1-1.0); Monocytes % 7.1 % (1.7-9.3); Neutrophils # 2.5 K/mm3 (1.8-7.8); Neutrophils % 57.5 % (37.0-80.0); Platelet Count 152 K/mm3 (142-424); Red Blood Count 3.18 M/mm3 (4.60-6.20); Red Cell Distribution Width 17.7 % (11.5-17.5); White Blood Count 4.4 K/mm3 (4.8-10.8)
[2024-04-28 07:07] LABS: Chloride 109 mmol/L (98-107); Potassium 3.9 mmoL/L (3.5-5.1); Sodium 137 mmol/L (136-145)
[2024-04-28 07:10] LABS: Alanine Aminotransferase 18 U/L (12-78); Alkaline Phosphatase 93 U/L (38-126); Anion Gap 7.9 mEq/L (5-15); Aspartate Amino Transferase 20 U/L (17-59); Bilirubin,Total 0.4 mg/dl (0.2-1.3); Blood Urea Nitrogen 16 mg/dl (9-20); Calcium 8.1 mg/dl (8.4-10.2); Carbon Dioxide 24 mmol/L (22.0-30.0); Creatinine Clearance Estimated 112 mL/min (50-200); Estimated Glomerular Filt Rate 83 ml/min (>60); GFR (African American) 101 ML/MIN (>60); Glucose 135 mg/dl (74-100); Magnesium 1.8 mg/dl (1.6-2.3)
--- NOTE | 2024-04-28 07:12 | EXP.CARD.CON ---
History of Present Illness History of Present Illness Consult date: 04/28/24 Requesting physician: Feliciano Coto Chief complaint: fatigue Additional Medical History:: 1. CAD A. JACOBO to LAD, 04/24/2024. DAPT B. Previous JACOBO, about 10-12 yrs ago, [facility] 2. Diabetes mellitus 3. PAD A. Right AKA B. Left partial foot amputation 4. Ventricular tachycardia, 04/23/2024 A. Improved with amiodarone initiation B. Echocardiogra, EF 45% with mild global hypokinesis. No significant valve disease. 04/24/2024 5. Hypertension A. Echo, 2019, EF 55% with no regional WMA. No significant valve disease. 6. Hyperlipidemia 7. History of seizure disorder 8. History of spinal stenosis in the cervical and lumbar regions 9. Obesity 10. History of atrial flutter, 2019 A. No OAC due to high falls risk 11. Surgical incision and drainage of left medial buttock/ischial rectal/perianal abscess, 03/28/2024, Dr. Bowen History of present illness: This is a well known 69-year-old male with PMHx of type 2 diabetes, CAD status post recent stenting 04/24/2024, hypertension, hyperlipidemia, decubitus ulcer, right AKA, chronic left foot wounds managed by podiatry, recently discharged two days ago with services; presented to the emergency department for evaluation with concern for general weakness. Patient stated that her home health nurse come to his house today, and advised him to come in for evaluation. Patient states that he has been feeling very generally weak, unable to perform his ALDs at home and even to hold head up since discharge home from the hospital. He states that he has had decreased appetite and significant nausea. He has had chills. No fevers, chest pain, shortness of breath, or significant abdominal pain. On review of systems, he does complain of some left low back pain around his left hip. He notes his foot wounds are doing well. No other specific concerns or complaints noted at this time. Patient arrives by EMS who noted he was stable en route. The above per Vu Haley APRN for the hospitalist service. Patient confirms events as noted above and symptoms of weakness and fatigue. Denies any chest pain, pressure or tightness, nausea, vomiting or diarrhea. He does endorse sleeping in a chair due to some smothering sensation if he lays down. [facility] Disclaimer: The information contained in this section may have been updated after the patient was seen, as this information can be updated by other users. Medical History Seizure CAD in [place] artery Acute febrile illness Atrial flutter Bilateral cellulitis of lower leg Cellulitis Diabetes mellitus Dystrophia unguium Fatigue Fever Infestation by fly larvae Lymphedema of both lower extremities Malaise Obesity with body mass index (BMI) of 30.0 to 39.9 Peripheral vascular disease Renal insufficiency Spinal stenosis of cervical region Spinal stenosis of lumbar region Systemic inflammatory response syndrome (SIRS) Ulcers of both lower extremities Uncontrolled diabetes mellitus History of left heart catheterization (LHC) Surgical History History of amputation H/O Spinal surgery Family History Mother Breast cancer Family history of myocardial infarction Social History Smoking Status: Never smoker alcohol intake: never substance use type: marijuana current occupational status: retired and disabled Travel in the last 8 weeks: None household members: family caffeine: No Review of Systems Review of Systems Review of systems:: pertinent systems reviewed and negative unless documented below *Cardiovascular Cardiovascular: Denies chest pain, Reports dyspnea and Reports dyspnea on exertion *Respiratory Respiratory: Reports dyspnea and Reports dyspnea on exertion Exam Data for Last 24 hours Vital signs and Labs for Last 24 Hours: Temp Pulse Resp BP Pulse Ox O2 Del Method 97.6 F 73 16 122/70 98 Room Air 04/28/24 04:00 04/28/24 04:00 04/28/24 04:00 04/28/24 04:00 04/28/24 04:00 04/28/24 06:46 Laboratory Results - last 24 hr 04/27/24 19:38: VBG pH 7.43 H, VBG pCO2 32.3 L, VBG pO2 49.1 H, VBG HCO3 21.2 L, VBG Total CO2 22.1 L, VBG O2 Saturation 84.4 H, VBG Base Excess -3.1 L, VBG Lactic Acid 2.8 H 04/27/24 19:40: WBC 5.7, RBC 3.14 L, Hgb 8.3 L, Hct 25.8 L, MCV 82.3, MCH 26.6 L, MCHC 32.3, RDW 17.4, Plt Count 151, MPV 8.8, Neut % (Auto) 64.8, Lymph % (Auto) 24.2, [place] % (Auto) 6.4, Eos % (Auto) 3.9, Baso % (Auto) 0.8, Neut # (Auto) 3.7, Lymph # (Auto) 1.4, [place] # (Auto) 0.4, Eos # (Auto) 0.2, Baso # (Auto) 0.0, PT 11.0, INR 0.98, APTT 26.8, Sodium 135 L, Potassium 4.2, Chloride 107, Carbon Dioxide 19 L, Anion Gap 13.2, BUN 18, Creatinine 0.80 D, Estimated Creat Clear 109, Estimated GFR 96, Est GFR ( Amer) 116 D, Glucose 162 H, Calcium 8.5, Total Bilirubin 0.7, AST 35, ALT 22, Alkaline Phosphatase 72, Troponin I 0.64 H, C-Reactive Protein 28.7 H, NT-Pro-B Natriuret Pep 4430 H, Total Protein 6.7, Albumin 3.3 L, Globulin 3.4 H, Albumin/Globulin Ratio 1.0 L, Lipase 83, Procalcitonin 0.098, TSH 1.12, Thyroxine (T4) 9.3 04/27/24 19:49: SARS-CoV-2 (PCR) Not detected, Influenza A Untype (PCR) Not detected, Influenza Type B (PCR) Not detected 04/27/24 21:45: Urine Color Yellow, Urine Appearance Clear, Urine pH 6.0, Ur Specific [place] 1.020, Urine Protein 2+, Urine Glucose (UA) Negative, Urine Ketones Negative, Urine Blood 3+, Urine Nitrate Negative, Urine Bilirubin Negative, Urine Urobilinogen 0.2, Ur Leukocyte Esterase Trace, Urine RBC Tntc, Urine WBC 3-5, Urine Bacteria 1+ 04/27/24 22:33: Troponin I 0.71 H 04/27/24 23:42: Lactate 1.5 04/28/24 01:25: Troponin I 0.71 H 04/28/24 05:00: POC Glucose 167 H 04/28/24 05:35: WBC 4.4 L, RBC 3.18 L, Hgb 8.2 L, Hct 26.8 L, MCV 84.4, MCH 25.8 L, MCHC 30.5 L, RDW 17.7 H, Plt Count 152, MPV 8.8, Neut % (Auto) 57.5, Lymph % (Auto) 28.8, [place] % (Auto) 7.1, Eos % (Auto) 5.8, Baso % (Auto) 0.8, Neut # (Auto) 2.5, Lymph # (Auto) 1.3, [place] # (Auto) 0.3, Eos # (Auto) 0.3, Baso # (Auto) 0.0, Sodium 137, Potassium 3.9, Chloride 109 H, Carbon Dioxide 24, Anion Gap 7.9, BUN 16, Creatinine 0.90, Estimated Creat Clear 112, Estimated GFR 83, Est GFR ( Amer) 101, Glucose 135 H, Calcium 8.1 L, Magnesium 1.8, Total Bilirubin 0.4, AST 20 D, ALT 18, Alkaline Phosphatase 93, Total Protein 6.0 L, Albumin 3.0 L, Globulin 3.0, Albumin/Globulin Ratio 1.0 L I & O for Last 24 hours: Intake & Output 04/25/24 04/26/24 04/27/24 04/28/24 11:59 11:59 11:59 11:59 Intake Total 120 / 120 Output Total 650 / 650 Balance -530 / -530 Weight 254 lb 14.4 oz Constitutional Constitutional: no acute distress *Routine Respiratory Exam Respiratory: Present decreased breath sounds and CTA bilaterally *Routine Cardiovascular Exam Cardiovascular: Present RRR; Absent murmur, gallop or rubs *Routine Extremities Exam Extremities: Present edema Meds Home Medications and Allergies Home Medications ?Medication ?Instructions ?Recorded ?Confirmed ?Type aspirin 81 mg tablet,delayed 81 mg PO DAILY 04/20/23 04/28/24 History release buspirone 5 mg tablet 5 mg PO TID 04/20/23 04/28/24 History furosemide 40 mg tablet 40 mg PO DAILY Fluid 04/20/23 04/28/24 History lamotrigine 100 mg tablet 100 mg PO BID 04/20/23 04/28/24 History lamotrigine 150 mg tablet 150 mg PO HS 04/21/23 04/28/24 History insulin glargine 100 unit/mL (3 42 unit SQ HS 06/04/23 04/28/24 History mL) subcutaneous pen (Lantus Solostar U-100 Insulin) clopidogrel 75 mg tablet (Plavix) 75 mg PO DAILY #30 tabs 06/08/23 04/28/24 Rx metoprolol succinate 25 mg 25 mg PO DAILY #30 tabs 06/08/23 04/28/24 Rx tablet,extended release 24 hr atorvastatin 40 mg tablet 40 mg PO HS 03/03/24 04/28/24 History pantoprazole 40 mg tablet,delayed 40 mg PO DAILY 03/03/24 04/28/24 History release metoclopramide HCl 5 mg tablet 5 mg PO BIDWMEAL 03/27/24 04/28/24 History gabapentin 100 mg capsule 200 mg (2 x 100 mg) PO TID 30 days 04/01/24 04/28/24 Rx #180 caps baclofen 10 mg tablet 10 mg PO BIDP PRN Muscle Spasms 04/22/24 04/28/24 History sennosides 8.6 mg-docusate sodium 1 tab PO BID 04/22/24 04/28/24 History 50 mg tablet (Stimulant Laxative Plus) amiodarone 200 mg tablet 200 mg PO BID 30 days #60 tabs 04/25/24 04/28/24 Rx losartan 50 mg tablet 50 mg PO DAILY 04/28/24 History New Prescriptions to Start Prescriptions: Allergies Allergy/AdvReac Type Severity Reaction Status Date / Time hydrocodone [From LORTAB] Allergy Unknown NA-NAUSEA/V Verified 04/22/24 00:02 OMITING codeine Allergy Verified 04/22/24 00:02 levetiracetam [From Keppra] Allergy Verified 04/22/24 00:02 tramadol AdvReac Unknown Verified 04/22/24 00:02 allergy reaction Assessment and Plan *Assessment and plan (1) HFrEF (heart failure with reduced ejection fraction): Status: Acute Category: Medical Code(s): I50.20 - Unspecified systolic (congestive) heart failure (2) Elevated troponin: Status: Acute Category: Medical Code(s): R79.89 - Other specified abnormal findings of blood chemistry (3) Frequent PVCs: Status: Acute Category: Medical Code(s): I49.3 - Ventricular premature depolarization (4) General weakness: Status: Acute Category: Medical Code(s): R53.1 - Weakness (5) HTN (hypertension): Status: Chronic Qualifiers: Hypertension type: primary hypertension Qualified Code(s): I10 - Essential (primary) hypertension Category: Medical Code(s): I10 - Essential (primary) hypertension (6) HLD (hyperlipidemia): Status: Chronic Qualifiers: Hyperlipidemia type: mixed hyperlipidemia Qualified Code(s): E78.2 - Mixed hyperlipidemia Category: Medical Code(s): E78.5 - Hyperlipidemia, unspecified (7) Seizure disorder: Status: Chronic Category: Medical Code(s): G40.909 - Epilepsy, unspecified, not intractable, without status epilepticus (8) CAD in [place] artery: Status: Acute Category: Medical Code(s): I25.10 - Atherosclerotic heart disease of [place] coronary artery without angina pectoris (9) Peripheral vascular disease: Status: Acute Category: Medical Code(s): I73.9 - Peripheral vascular disease, unspecified (10) Right above-knee amputee: Status: Acute Category: Medical Code(s): Z89.611 - Acquired absence of right leg above knee Plan 1. HFrEF/EF 45% by echo this week with elevated BNP at 4430 this admission but no pulmonary edema on CXR -IV lasix and oral spironolactone -Add jardiance -Continue metoprolol -start entresto -check limited echo today to confirm no change in EF 2. Generalized weakness -deconditioned -Hemoglobin stable at 8.2 -TSH normal 3. Recent V. tach, likely ischemically mediated since it improved after amiodarone and LAD stenting. -continue to monitor -EKG this admission, NSR with frequent PVC's -increase amiodarone to 400 mg BID 4. CAD -LAD stenting this week -DAPT with ASA and plavix -Elevated troponin likely secondary to recent coronary stenting 5. DM -Insulin per Dr. Coto 6. Seizure disorder -Continue lamotrigine 7. Hyperlipidemia -On atorvastatin 40 mg daily -LDL 59 on 04/25/2024 8. Bladder wall thickening on Abd/Pelvis CT this admission -concern for neoplasm with recommendation for direct visualization -Defer to Dr. Coto Start GDMT for HFrEF IV Lasix with monitoring of renal status Limited echo today confirms EF 45%. Increase amiodarone 400 mg twice daily for frequent PVCs Pt really needs placement in extended care facility due to high risk for medication non-compliance and frequent hospitalizations.
--- NOTE | 2024-04-28 07:31 | CA_ITS ---
APPROVED REPORT EXAM: Limited 2D Echocardiogram [employer] Field Assistant: Thuy Abbott, RCS, RVS Ht: 6 ft 0 in Wt: 254lbs BSA: 2.36 BP: 122/70 mmHg Indications: EF 45% 04/24/24 recent coronary steniting, DM, Right AKA, HTN 2D Dimensions IVSd 0.98 cm LVEF (Visual) 53.30 % PWd 1.09 cm EF AP4 45.30 % LVDd 6.47 cm GL Strain -13.0 % LVDs 4.65 cm M-Mode Dimensions RVDd 3.00 cm (0.9-2.6) LVDd 6.47 cm (3.5-5.7) LVDs 4.36 cm (3.5-5.7) IVSd 1.36 cm (0.6-1.1) PWd 1.22 cm (0.6-1.1) EF (Teich) 51.40% FS 27.17% EDV (Teich) 176.60 mL ESV (Teich) 85.80 mL Other Information Study Quality: Technically Difficult Conclusion This is a limited TTE to evaluate for LVEF. Limited windows were obtained. Technically diffiuclt study. The left ventricle is normal in size. There is increase in LV wall thickness. There is mild global hypokinesis present. There is moderate hypokinesis of the inferior, inferoseptal, and inferolateral LV carrasco. LVEF is 45%. Compared to prior study from 04/24/2024, there are overall no significant change to LVEF. Subsequent LVEF evaluations in the future are recommended to be performed with ultrasound enhancing agent to better delineate the LV wall motion and LVEF. Electronically signed by : Jenny English MD 04/30/2024 12:49:42
--- NOTE | 2024-04-28 08:23 | PC.NURSE ---
pt. doesn't know if he takes losartan at home.
--- NOTE | 2024-04-28 08:59 | HMH.PHAINT1 ---
Pharmacy Intervention Comments: HOME MEDICATION LIST VERIFIED USING LIST FROM OUTPATIENT PHARMACY AND PRIMARY CARE OFFICE
[2024-04-28] MEDS: PT OWN MED *ASPIRIN 81 MG EC TAB 1 EACH PO (09:17)
[2024-04-28] MEDS: METOPROLOL SUCCINATE XL 25MG TABLET 25 MG PO (09:17)
[2024-04-28] MEDS: EMPAGLIFLOZIN 10MG TABLET 10 MG PO (09:17)
[2024-04-28] MEDS: SPIRONOLACTONE 25MG TABLET 25 MG PO ×2 (09:17→21:20)
[2024-04-28] MEDS: BUSPIRONE HCL 5 MG TABLET PO ×3 (09:17→21:14)
[2024-04-28] MEDS: SACUBITRIL/VALSARTAN 24-26MG TABLET 1 EACH PO ×2 (09:17→21:20)
[2024-04-28] MEDS: LAMOTRIGINE 100 MG 1 EACH PO ×2 (09:17→21:17)
[2024-04-28] MEDS: DOCUSATE PO ×2 (09:17→21:19)
[2024-04-28] MEDS: GABAPENTIN 100MG CAPSULE 200 MG PO ×3 (09:17→21:13)
[2024-04-28] MEDS: SENNA PO ×2 (09:17→21:19)
[2024-04-28] MEDS: AMIODARONE 200MG TABLET 400 MG PO ×2 (09:18→21:13)
[2024-04-28] MEDS: CLOPIDOGREL 75MG TAB 75 MG PO (09:19)
[2024-04-28] MEDS: humaLOG 100 UNITS/ML 10ML VIAL (SSI) SQ ×3 (10:13→21:15)
[2024-04-28 10:17] LABS: POC Glucose,Bedside 174 (70-110)
--- NOTE | 2024-04-28 10:23 | HMH.PTWOUND ---
Rehab Inpt Wound Evaluation Rehab IP Wound Evaluation Start: 04/28/24 00:23 Freq: ONCE Status: Active Protocol: Document 04/28/24 10:07 JOSE CRUZ (Rec: 04/28/24 10:22 JOSE CRUZ [id number]) Rehab PT Wound Assessment Subjective Subjective 69 yowm adm to [facility] with CHF exac. He also recently had L TMA performed by podiatry as an outpatient. PMH of type 2 diabetes, CAD status post recent stenting 04/24/2024, hypertension, hyperlipidemia, decubitus ulcer, right AKA, chronic left foot wounds managed by podiatry. He presents with L foot post surgical wound and R buttock wound upon admission. He lives alone and is DEPENDENT for all transfers at baseline, he is only capable of independent rolling in bed for baseline mobility. Wound Right Lower Buttock Wound Type post-surgical wound. Is This a Chronic Wound Yes Wound Length (cm) 2.0 Wound Width (cm) 1.5 Wound Depth (cm) 0.3 Wound Bed Appearance Beefy Red Percentage Granulated (%) 100 Wound Margins Description Well Defined Surrounding Tissue Appearance Macerated Wound Drainage Description Green Drainage Amount Small Primary Dressing Gauze Pad Wound Secondary Dressing Type Composite Left Distal Foot Wound Type post surgical wound Is This a Chronic Wound No Wound Length (cm) 6.0 Wound Width (cm) 11.0 Wound Depth (cm) 0.1 Wound Bed Appearance Necrotic Percentage of Eschar (Black) (%) 50 Wound Margins Description Well Defined Surrounding Tissue Appearance Blanched/Dull,Edematous Wound Drainage Description Serosanguineous Drainage Amount Small Comment occlusive petroleum gauze, betadine soaked gauze. Wound Secondary Dressing Type Gauze Roll/Wrap,Elastic Bandage Dressing Change Patient Tolerance Tolerated Well Plan/Recommendation Comment Pt wounds currently do not require debridement selectively at bedside. Will follow distantly for dressing changes if necessary to assist nsg. Nsg staff aware of dressing changes. Pt is most appropriate for SNF placement once medically stable for d/c. Eval Complexity Eval Charge Codes 38176 - High Complexity PHYSICIAN CERTIFICATION: I certify the specified therapy services for Vitaly Shipmanp are required, authorized, and reviewed every 30 days.
--- NOTE | 2024-04-28 11:50 | SW/DCPLANNER ---
Addendum entered by Bethany Campuzano 05/01/24 07:29: Updated patient information/order has been faxed to [facility]. Original Note: Patient is currently established w/ [facility]. I will follow up w/ Héctor at [facility] once patient is medically stable for discharge. Discharge date is unknown at this time.
--- NOTE | 2024-04-28 15:08 | PC.NURSE ---
Patient is alert and oriented times 4 and calls out when needing assistance, turn every two hours, no complaints of pain or nausea today, has several skin issues with pictures in the notes, chronic f/c which was changed out in the ER when admitted, EF of 45%, 20g L UA SL, possible d/c tomorrow with an adjustment in medications and home health.
[2024-04-28] MEDS: METOCLOPRAMIDE 5 MG 1 EACH PO (16:15)
[2024-04-28 16:22] LABS: POC Glucose,Bedside 211 (70-110)
--- NOTE | 2024-04-28 16:28 | PC.NURSE ---
Pt. reports slight dull upper chest symptoms that come and go... Md. wang aware.
--- NOTE | 2024-04-28 17:14 | P.PN_ITS ---
Subjective *Date: 04/28/24 *Time: 19:02 Interval history: Stable on room air. No nausea or vomiting. Denies any chest pain this morning. Denies pain with his foot. Dressing being changed on foot, appears as though it is healing appropriately. No redness or drainage. Medical Exam Vital signs and Labs for Last 24 Hours: Vital Signs Temp Pulse Pulse Resp BP BP Pulse Ox 04/28/24 16:50 04/28/24 16:07 70 04/28/24 15:58 98.2 F 78 17 108/39 L 94 L 04/28/24 13:19 04/28/24 12:00 70 04/28/24 11:53 04/28/24 09:36 04/28/24 08:00 90 04/28/24 07:49 04/28/24 07:42 04/28/24 07:39 97.7 F 63 18 141/51 H 98 04/28/24 06:46 04/28/24 04:49 04/28/24 04:00 97.6 F 73 16 122/70 98 04/28/24 04:00 60 04/28/24 03:00 04/28/24 00:48 04/28/24 00:00 70 04/28/24 00:00 04/27/24 23:04 70 04/27/24 22:55 04/27/24 22:45 98.3 F 69 13 127/55 L 97 04/27/24 22:41 98.1 F 73 13 124/54 L 04/27/24 19:21 98.1 F 73 21 137/77 95 O2 Del Method 04/28/24 16:50 Room Air 04/28/24 16:07 04/28/24 15:58 Room Air 04/28/24 13:19 Room Air 04/28/24 12:00 04/28/24 11:53 Room Air 04/28/24 09:36 Room Air 04/28/24 08:00 04/28/24 07:49 Room Air 04/28/24 07:42 Room Air 04/28/24 07:39 Room Air 04/28/24 06:46 Room Air 04/28/24 04:49 Room Air 04/28/24 04:00 Room Air 04/28/24 04:00 04/28/24 03:00 Room Air 04/28/24 00:48 Room Air 04/28/24 00:00 04/28/24 00:00 Room Air 04/27/24 23:04 04/27/24 22:55 Room Air 04/27/24 22:45 Room Air 04/27/24 22:41 Room Air 04/27/24 19:21 Room Air Intake and Output 04/28/24 04/28/24 04/28/24 07:59 15:59 23:59 Intake Total 120 / 360 240 / 360 Output Total 650 / 2150 1500 / 2150 Balance -530 / -1790 -1260 / -1790 Intake: Intake, Oral Amount 120 / 360 240 / 360 Output: Output, Urine Amount 650 / 2150 1500 / 2150 Other: Number of Unmeasured Voids 0 1 Number of Bowel Movements 1 Weight 115.621 kg Patient Weight 04/28/24 23:59 Weight 115.621 kg Laboratory Results - last 24 hr 04/27/24 19:38: VBG pH 7.43 H, VBG pCO2 32.3 L, VBG pO2 49.1 H, VBG HCO3 21.2 L, VBG Total CO2 22.1 L, VBG O2 Saturation 84.4 H, VBG Base Excess -3.1 L, VBG Lactic Acid 2.8 H 04/27/24 19:40: WBC 5.7, RBC 3.14 L, Hgb 8.3 L, Hct 25.8 L, MCV 82.3, MCH 26.6 L , MCHC 32.3, RDW 17.4, Plt Count 151, MPV 8.8, Neut % (Auto) 64.8, Lymph % (Auto) 24.2, [place] % (Auto) 6.4, Eos % (Auto) 3.9, Baso % (Auto) 0.8, Neut # (Auto) 3.7, Lymph # (Auto) 1.4, [place] # (Auto) 0.4, Eos # (Auto) 0.2, Baso # (Auto) 0.0, PT 11.0, INR 0.98, APTT 26.8, Sodium 135 L, Potassium 4.2, Chloride 107, Carbon Dioxide 19 L, Anion Gap 13.2, BUN 18, Creatinine 0.80 D, Estimated Creat Clear 109, Estimated GFR 96, Est GFR ( Amer) 116 D, Glucose 162 H, Calcium 8.5, Total Bilirubin 0.7, AST 35, ALT 22, Alkaline Phosphatase 72, Troponin I 0.64 H, C-Reactive Protein 28.7 H, NT-Pro-B Natriuret Pep 4430 H, Total Protein 6.7, Albumin 3.3 L, Globulin 3.4 H, Albumin/Globulin Ratio 1.0 L, Lipase 83, Procalcitonin 0.098, TSH 1.12, Thyroxine (T4) 9.3 04/27/24 19:49: SARS-CoV-2 (PCR) Not detected, Influenza A Untype (PCR) Not detected, Influenza Type B (PCR) Not detected 04/27/24 21:45: Urine Color Yellow, Urine Appearance Clear, Urine pH 6.0, Ur Specific [place] 1.020, Urine Protein 2+, Urine Glucose (UA) Negative, Urine Ketones Negative, Urine Blood 3+, Urine Nitrate Negative, Urine Bilirubin Negative, Urine Urobilinogen 0.2, Ur Leukocyte Esterase Trace, Urine RBC Tntc, Urine WBC 3-5, Urine Bacteria 1+ 04/27/24 22:33: Troponin I 0.71 H 04/27/24 23:42: Lactate 1.5 04/28/24 01:25: Troponin I 0.71 H 04/28/24 05:00: POC Glucose 167 H 04/28/24 05:35: WBC 4.4 L, RBC 3.18 L, Hgb 8.2 L, Hct 26.8 L, MCV 84.4, MCH 25.8 L, MCHC 30.5 L, RDW 17.7 H, Plt Count 152, MPV 8.8, Neut % (Auto) 57.5, Lymph % (Auto) 28.8, [place] % (Auto) 7.1, Eos % (Auto) 5.8, Baso % (Auto) 0.8, Neut # (Auto) 2.5, Lymph # (Auto) 1.3, [place] # (Auto) 0.3, Eos # (Auto) 0.3, Baso # (Auto) 0.0, Sodium 137, Potassium 3.9, Chloride 109 H, Carbon Dioxide 24, Anion Gap 7.9, BUN 16, Creatinine 0.90, Estimated Creat Clear 112, Estimated GFR 83, Est GFR ( Amer) 101, Glucose 135 H, Calcium 8.1 L, Magnesium 1.8, Total Bilirubin 0.4, AST 20 D, ALT 18, Alkaline Phosphatase 93, Total Protein 6.0 L, Albumin 3.0 L, Globulin 3.0, Albumin/Globulin Ratio 1.0 L 04/28/24 10:09: POC Glucose 174 H 04/28/24 16:14: POC Glucose 211 H I & O for Labs for Last 24 Hours: Intake & Output 04/25/24 04/26/24 04/27/24 04/28/24 23:59 23:59 23:59 23:59 Intake Total 360 / 360 Output Total 2150 / 2150 Balance -1790 / -1790 Weight 106.821 kg 115.621 kg Constitutional: Present no acute distress, obese, chronically ill appearing and cooperative Head: Present atraumatic and normocephalic ENT: Present normal exam Neck: Present normal inspection Respiratory: Present normal respiratory effort; Absent rhonchi, wheezes or crackles Cardiac: Present Reg Rate and Rhythm GI: Present soft and normal bowel sounds; Absent distention or tenderness Comments:: Bandaging on left gluteus Extremities: Present normal inspection and full ROM Comment:: Right [id number] amputation; left foot with no erythema. Sutures in place at site of transmetatarsal amputation. Superficial eschar of skin at site of amputation. No fluctuance or drainage. Skin: Present intact, dry (Flaky skin on left lower extremity) and pallor; Absent erythema Neuro: Present Grossly Intact, alert, awake, oriented x 3 and moves all extremities Comment:: Absent sensation in left foot Assessment and Plan *Assessment and plan (1) Acute exacerbation of CHF (congestive heart failure): Status: Acute Qualifiers: Heart failure type: systolic Qualified Code(s): I50.23 - Acute on chronic systolic (congestive) heart failure Category: Medical Code(s): I50.9 - Heart failure, unspecified (2) Elevated troponin: Status: Acute Category: Medical Code(s): R79.89 - Other specified abnormal findings of blood chemistry (3) Arrhythmia: Status: Acute Qualifiers: Arrhythmia type: ventricular tachycardia, unspecified Qualified Code(s): I47.20 - Ventricular tachycardia, unspecified Category: Medical Code(s): I49.9 - Cardiac arrhythmia, unspecified (4) Diabetic ulcer of left heel associated with diabetes mellitus due to underlying condition, limited to breakdown of skin: Status: Acute Category: Medical Code(s): E08.621 - Diabetes mellitus due to underlying condition with foot ulcer; L97.421 - Non-pressure chronic ulcer of left heel and midfoot limited to breakdown of skin (5) S/P transmetatarsal amputation of foot: Status: Acute Qualifiers: Laterality: left Qualified Code(s): Z89.432 - Acquired absence of left foot Category: Surgical Code(s): Z89.439 - Acquired absence of unspecified foot (6) HLD (hyperlipidemia): Status: Chronic Qualifiers: Hyperlipidemia type: mixed hyperlipidemia Qualified Code(s): E78.2 - Mixed hyperlipidemia Category: Medical Code(s): E78.5 - Hyperlipidemia, unspecified (7) HTN (hypertension): Status: Chronic Qualifiers: Hypertension type: primary hypertension Qualified Code(s): I10 - Essential (primary) hypertension Category: Medical Code(s): I10 - Essential (primary) hypertension (8) PVD (peripheral vascular disease): Status: Acute Category: Medical Code(s): I73.9 - Peripheral vascular disease, unspecified (9) General weakness: Status: Acute Category: Medical Code(s): R53.1 - Weakness Plan 69-year-old male with PMHx of type 2 diabetes, CAD status post recent stenting 04/24/2024, hypertension, hyperlipidemia, decubitus ulcer, right AKA, chronic left foot wounds managed by podiatry, recently discharged two days ago with [facility] valle; presented to the emergency department for evaluation with concern for general weakness. Patient also mentions he has been feeling tired fatigue. He has no appetite he has been feeling ill. Patient otherwise denied chest pain, fevers chills. Admitted for treatment of exacerbation of CHF. Feeling somewhat better this morning. Cardiology evaluating. Problems addressed as follows: Acute exacerbation of heart failure with reduced ejection fraction arrhythmia, PVCs CAD s/p recent stent x3 -Cardiology evaluated this morning, discussed case with them. Recommend goal- directed therapy. Echo obtained showing an fraction of proximately 45%. BNP elevated at 4400. -IV Lasix 40 mg daily, and oral spironolactone 25 mg daily. -Will add Jardiance 10 mg daily, continue metoprolol, initiate Entresto low- dose. -Morning labs with normal kidney function, creatinine 0.9, BUN 16. Magnesium 1.8 and potassium 3.9. No replacement today. Repeat CBC, CMP, magnesium ordered for the morning. -Continue aspirin 81 mg daily and Plavix 75 g daily -Continue amiodarone 400 mg twice daily Diabetic ulcer of the left heel status post transmetatarsal amputation of the foot -Wound care consulted, dressing wound. No indication for antibiotics at this time. -dsg change: betadine soaked gauze, kerlix and jeffery wrap applied. Generalized weakness: deconditioned; Hemoglobin stable at 8.2; TSH normal. Therapy evaluating and working with patient daily. Consistent discussion every admission about the need for long-term care. Patient is adamant he will not go to a long-term again. Has assistance at home with home health. We agreed to disagree about the appropriateness of him being at home given his significant debility, excessive nursing needs, and progressively worsening health conditions. Diabetes: Most recent A1c 6.3. Continue insulin glargine 42 units nightly, sliding scale insulin with fingersticks ACHS. Anxiety: Continue buspirone 5 mg as a day Seizure disorder: Continue Lamictal 100 mg twice daily Full code Diabetic diet Lovenox 40 mg subcu daily
--- NOTE | 2024-04-28 17:16 | EXP.EVENT.NO ---
Advance care planning note: Active diagnosis: Amputation of left foot, cellulitis, osteomyelitis, heart failure, CHF exacerbation, progressive debility, declining functional status, significant need for healthcare assistance, long-term indwelling catheter. The patient's active diagnoses are of sufficient risk that focused discussion on advanced care planning is indicated in order to allow the patient to thoughtfully consider personal goals of care; and, if situations arise that prevent the ability to personally give input, to ensure appropriate representation of their personal desires through documentation or informed surrogate decision makers. Discussion: Persons present and participating in discussion: Patient and myself Discussion: Again had a long discussion about patient's complex extensive medical needs and risks and benefits of skilled placement for best chance of improving. Patient states again he has no desire to go to a nursing facility. States they do not give him the care he needs. He is concerned however with recurrent admissions and the cost of ambulance rides. Explained that home is not an optimal choice as he needs regular nursing care daily and close monitoring for regular adjustments to optimize his management. Discussed the prognosis if he develops recurrent infection or osteomyelitis in the left foot. Patient understands that his only options at that point would essentially be hospice. Reinforced the need for goal-directed therapy with his heart failure. Time spent: Total time spent [id number] in education and discussion directly related to advance care planninmin
[2024-04-28] MEDS: INSULIN GLARGINE 100 UNITS/ML 3ML FLEXPEN 42 UNIT SQ (21:14)
[2024-04-28] MEDS: PT OWN MED *ATORVASTATIN 40 MG TAB 1 EACH PO (21:17)
[2024-04-28] MEDS: PT OWN MED *PANTOPRAZOLE 40 MG TAB 1 EACH PO (21:18)
[2024-04-28] MEDS: LAMOTRIGINE 150 MG 1 EACH PO (21:18)
[2024-04-28 21:54] LABS: POC Glucose,Bedside 191 (70-110)
[2024-04-29] VITALS (9 sets, daily range): BP systolic 91–125; BP diastolic 45–75; PULSE 64–90; RESP 14–17; TEMP 36.6–37.1; O2SAT 92–97; BMI 34.3
[2024-04-29] MEDS: humaLOG 100 UNITS/ML 10ML VIAL (SSI) SQ ×3 (06:12→21:04)
[2024-04-29 06:21] LABS: POC Glucose,Bedside 151 (70-110)
[2024-04-29] MEDS: EMPAGLIFLOZIN 10MG TABLET 10 MG PO (08:06)
[2024-04-29] MEDS: BUSPIRONE HCL 5 MG TABLET PO ×2 (08:06→21:00)
[2024-04-29] MEDS: GABAPENTIN 100MG CAPSULE 200 MG PO ×3 (08:07→21:00)
[2024-04-29] MEDS: AMIODARONE 200MG TABLET 400 MG PO ×2 (08:07→20:59)
[2024-04-29] MEDS: SACUBITRIL/VALSARTAN 24-26MG TABLET 1 EACH PO (08:07)
[2024-04-29] MEDS: CLOPIDOGREL 75MG TAB 75 MG PO (08:07)
[2024-04-29] MEDS: METOPROLOL SUCCINATE XL 25MG TABLET 25 MG PO (08:07)
[2024-04-29] MEDS: SPIRONOLACTONE 25MG TABLET 25 MG PO ×2 (08:08→21:03)
[2024-04-29] MEDS: LAMOTRIGINE 100 MG 1 EACH PO ×2 (08:11→21:01)
[2024-04-29] MEDS: METOCLOPRAMIDE 5 MG 1 EACH PO ×2 (08:12→16:52)
[2024-04-29] MEDS: PT OWN MED *ASPIRIN 81 MG EC TAB 1 EACH PO (08:12)
--- NOTE | 2024-04-29 10:18 | P.PN_ITS ---
Subjective *Date: 04/29/24 *Time: 13:32 Interval history: Patient stable on room air. No nausea or vomiting. Tolerating p.o. intake. Feeling improved shortness of breath. Diuresing well. -2.3 L since admission. Medical Exam Vital signs and Labs for Last 24 Hours: Vital Signs Temp Pulse Pulse Resp BP Pulse Ox O2 Del Method 04/29/24 09:00 Room Air 04/29/24 08:00 Room Air 04/29/24 08:00 98.4 F 83 16 117/68 96 04/29/24 08:00 90 04/29/24 06:49 Room Air 04/29/24 05:00 Room Air 04/29/24 04:00 70 04/29/24 04:00 98.3 F 81 16 105/54 L 92 L Room Air 04/29/24 03:00 Room Air 04/29/24 00:59 Room Air 04/29/24 00:46 79 125/56 L 04/29/24 00:00 70 04/29/24 00:00 97.9 F 82 16 91/45 L 92 L Room Air 04/28/24 23:00 Room Air 04/28/24 21:00 Room Air 04/28/24 21:00 Room Air 04/28/24 20:00 60 04/28/24 20:00 98.4 F 76 16 114/65 97 Room Air 04/28/24 17:33 Room Air 04/28/24 16:50 Room Air 04/28/24 16:07 70 04/28/24 15:58 98.2 F 78 17 108/39 L 94 L Room Air 04/28/24 13:19 Room Air 04/28/24 12:00 70 04/28/24 11:53 Room Air Intake and Output 04/28/24 04/29/24 04/29/24 23:59 07:59 15:59 Intake Total 300 / 660 360 / 360 Output Total 400 / 2550 500 / 500 Balance -100 / -1890 -500 / -140 360 / -140 Intake: Intake, Oral Amount 300 / 660 360 / 360 Output: Output, Urine Amount 400 / 2550 500 / 500 Other: Number of Unmeasured Voids 1 0 Weight 114.94 kg Patient Weight 04/29/24 23:59 Weight 114.94 kg Laboratory Results - last 24 hr 04/28/24 16:14: POC Glucose 211 H 04/28/24 21:06: POC Glucose 191 H 04/29/24 06:06: POC Glucose 151 H I & O for Labs for Last 24 Hours: Intake & Output 04/26/24 04/27/24 04/28/24 04/29/24 23:59 23:59 23:59 23:59 Intake Total 660 / 660 360 / 360 Output Total 2550 / 2550 500 / 500 Balance -1890 / -1890 -140 / -140 Weight 106.821 kg 115.621 kg 114.94 kg Constitutional: Present no acute distress, obese, chronically ill appearing and cooperative Head: Present atraumatic and normocephalic ENT: Present normal exam Neck: Present normal inspection Respiratory: Present normal respiratory effort; Absent rhonchi, wheezes or crackles Cardiac: Present Reg Rate and Rhythm GI: Present soft and normal bowel sounds; Absent distention or tenderness Comments:: Bandaging on left gluteus Extremities: Present normal inspection and full ROM Comment:: Right [id number] amputation; left foot with no erythema. Stewart wrap in place Skin: Present intact, dry (Flaky skin on left lower extremity) and pallor; Absent erythema Neuro: Present Grossly Intact, alert, awake, oriented x 3 and moves all extremities Comment:: Absent sensation in left foot Assessment and Plan *Assessment and plan (1) Acute exacerbation of CHF (congestive heart failure): Status: Acute Qualifiers: Heart failure type: systolic Qualified Code(s): I50.23 - Acute on chronic systolic (congestive) heart failure Category: Medical Code(s): I50.9 - Heart failure, unspecified (2) Elevated troponin: Status: Acute Category: Medical Code(s): R79.89 - Other specified abnormal findings of blood chemistry (3) Arrhythmia: Status: Acute Qualifiers: Arrhythmia type: ventricular tachycardia, unspecified Qualified Code(s): I47.20 - Ventricular tachycardia, unspecified Category: Medical Code(s): I49.9 - Cardiac arrhythmia, unspecified (4) Diabetic ulcer of left heel associated with diabetes mellitus due to underlying condition, limited to breakdown of skin: Status: Acute Category: Medical Code(s): E08.621 - Diabetes mellitus due to underlying condition with foot ulcer; L97.421 - Non-pressure chronic ulcer of left heel and midfoot limited to breakdown of skin (5) S/P transmetatarsal amputation of foot: Status: Acute Qualifiers: Laterality: left Qualified Code(s): Z89.432 - Acquired absence of left foot Category: Surgical Code(s): Z89.439 - Acquired absence of unspecified foot (6) HLD (hyperlipidemia): Status: Chronic Qualifiers: Hyperlipidemia type: mixed hyperlipidemia Qualified Code(s): E78.2 - Mixed hyperlipidemia Category: Medical Code(s): E78.5 - Hyperlipidemia, unspecified (7) HTN (hypertension): Status: Chronic Qualifiers: Hypertension type: primary hypertension Qualified Code(s): I10 - Essential (primary) hypertension Category: Medical Code(s): I10 - Essential (primary) hypertension (8) PVD (peripheral vascular disease): Status: Acute Category: Medical Code(s): I73.9 - Peripheral vascular disease, unspecified (9) General weakness: Status: Acute Category: Medical Code(s): R53.1 - Weakness Plan 69-year-old male with PMHx of type 2 diabetes, CAD status post recent stenting 04/24/2024, hypertension, hyperlipidemia, decubitus ulcer, right AKA, chronic left foot wounds managed by podiatry, recently discharged two days ago with services; presented to the emergency department for evaluation with concern for general weakness. Patient also mentions he has been feeling tired fatigue. He has no appetite he has been feeling ill. Patient otherwise denied chest pain, fevers chills. Admitted for treatment of exacerbation of CHF. Remained stable, needs monitoring for 24 more hours on current regimen. Anticipate discharge tomorrow. Problems addressed as follows: Acute exacerbation of heart failure with reduced ejection fraction arrhythmia, PVCs CAD s/p recent stent x3 -Cardiology consulted and assisting with care. Recommend continuing goal- directed therapy. Echo obtained showing an fraction of proximately 45%. BNP elevated at 4400. -IV Lasix 40 mg trend p.o. daily. Continue spironolactone 25 mg daily. Continue Jardiance 10 mg daily, Entresto 24-6 twice daily, metoprolol succinate 25 mg daily - repeat CBC, CMP, magnesium ordered for the morning. -Continue aspirin 81 mg daily and Plavix 75 g daily -Continue amiodarone 400 mg twice daily, will transition back to 200 mg twice daily at discharge - White count normal 8.2, hemoglobin 8.0. Kidney function normal with BUN 19, creatinine 1.1. Potassium 4.2. Diabetic ulcer of the left heel status post transmetatarsal amputation of the foot -Wound care consulted, dressing wound. No indication for antibiotics at this time. -dsg change: betadine soaked gauze, kerlix and stewart wrap applied. Generalized weakness: deconditioned; Therapy evaluating and working with patient daily. Consistent discussion every admission about the need for long- term care. Patient is adamant he will not go to a group home again. Has assistance at home with home health. We agreed to disagree about the appropriateness of him being at home given his significant debility, excessive nursing needs, and progressively worsening health conditions. Diabetes: Most recent A1c 6.3. Continue insulin glargine 42 units nightly, sliding scale insulin with fingersticks ACHS. Morning glucose 132 Anxiety: Continue buspirone 5 mg as a day Seizure disorder: Continue Lamictal 100 mg twice daily Full code Diabetic diet Lovenox 40 mg subcu daily
[2024-04-29 11:09] LABS: Albumin Level 3.3 g/dl (3.5-5.0); Basophils % 0.4 % (0.1-2.0); Chloride 109 mmol/L (98-107); Eosinophils # 0.2 K/mm3 (0.0-0.4); Eosinophils % 2.9 % (0.1-12.0); Hematocrit 25.5 % (42.0-52.0); Lymphocytes # 1.8 K/mm3 (0.7-4.5); Lymphocytes % 21.9 % (10-50); Mean Corpuscular HGB Conc 31.3 g/dL (31.8-35.4); Mean Corpuscular Hemoglobin 26.4 pg (27.0-31.2); Mean Corpuscular Volume 84.4 fl (80-94); Mean Platelet Volume 7.9 fl (7.4-10.4); Monocytes # 0.7 K/mm3 (0.1-1.0); Monocytes % 8.2 % (1.7-9.3); Neutrophils # 5.4 K/mm3 (1.8-7.8); Neutrophils % 66.5 % (37.0-80.0); Platelet Count 156 K/mm3 (142-424); Potassium 4.2 mmoL/L (3.5-5.1); Red Blood Count 3.03 M/mm3 (4.60-6.20); Red Cell Distribution Width 16.5 % (11.5-17.5); Sodium 138 mmol/L (136-145); White Blood Count 8.2 K/mm3 (4.8-10.8)
[2024-04-29 11:12] LABS: Alanine Aminotransferase 26 U/L (12-78); Albumin/Globulin Ratio 1.1 (1.1-1.8); Alkaline Phosphatase 113 U/L (38-126); Anion Gap 11.2 mEq/L (5-15); Aspartate Amino Transferase 25 U/L (17-59); Bilirubin,Total 0.4 mg/dl (0.2-1.3); Blood Urea Nitrogen 19 mg/dl (9-20); Calcium 7.9 mg/dl (8.4-10.2); Carbon Dioxide 22 mmol/L (22.0-30.0); Creatinine Clearance Estimated 102 mL/min (50-200); Estimated Glomerular Filt Rate 66 ml/min (>60); GFR (African American) 80 ML/MIN (>60); Globulin 3.1 g/dL (1.3-3.2); Glucose 132 mg/dl (74-100); Total Protein,Serum 6.4 g/dl (6.3-8.2)
[2024-04-29] MEDS: ENOXAPARIN 40MG/0.4ML SYRINGE 40 MG SQ (11:30)
--- NOTE | 2024-04-29 13:00 | PC.NURSE ---
on initial assessment this morning, pt did not have an iv. kathleen made aware and stated hes okay with pt not having an iv at this time.
[2024-04-29] MEDS: FUROSEMIDE 40 MG TABLET PO (13:20)
[2024-04-29 17:03] LABS: POC Glucose,Bedside 167 (70-110)
--- NOTE | 2024-04-29 17:28 | PC.NURSE ---
PT HAS DONE WELL SINCE I ASSUMED PT'S CARE AT 1300. NO C/O PAIN, SOB, OR CHEST PAIN. VSS.
[2024-04-29 20:30] LABS: POC Glucose,Bedside 167 (70-110)
[2024-04-29] MEDS: PT OWN MED *PANTOPRAZOLE 40 MG TAB 1 EACH PO (21:01)
[2024-04-29] MEDS: LAMOTRIGINE 150 MG 1 EACH PO (21:01)
[2024-04-29] MEDS: PT OWN MED *ATORVASTATIN 40 MG TAB 1 EACH PO (21:01)
[2024-04-29] MEDS: DOCUSATE PO (21:02)
[2024-04-29] MEDS: VALSARTAN PO (21:02)
[2024-04-29] MEDS: SENNA PO (21:02)
[2024-04-29] MEDS: SACUBITRIL PO (21:02)
[2024-04-29] MEDS: INSULIN GLARGINE 100 UNITS/ML 3ML FLEXPEN 42 UNIT SQ (21:04)
[2024-04-30] VITALS: PULSE 69
[2024-04-30 04:00] VITALS: BP 140/76; PULSE 69; PULSE 81; RESP 16; TEMP 36.8; O2SAT 95; BMI 34.3
--- NOTE | 2024-04-30 05:28 | PC.NURSE ---
pt alert and oriented x4, nsr on monitor, no events through the night
[2024-04-30 06:24] LABS: POC Glucose,Bedside 187 (70-110)
[2024-04-30] MEDS: humaLOG 100 UNITS/ML 10ML VIAL (SSI) SQ (06:28)
[2024-04-30 07:08] LABS: Basophils % 0.5 % (0.1-2.0); Eosinophils # 0.3 K/mm3 (0.0-0.4); Eosinophils % 3.8 % (0.1-12.0); Hematocrit 24.8 % (42.0-52.0); Hemoglobin 7.9 g/dL (14.1-18.0); Lymphocytes # 1.9 K/mm3 (0.7-4.5); Mean Corpuscular HGB Conc 31.9 g/dL (31.8-35.4); Mean Corpuscular Hemoglobin 26.6 pg (27.0-31.2); Mean Corpuscular Volume 83.2 fl (80-94); Mean Platelet Volume 9.1 fl (7.4-10.4); Monocytes # 0.8 K/mm3 (0.1-1.0); Monocytes % 10.5 % (1.7-9.3); Neutrophils # 4.8 K/mm3 (1.8-7.8); Neutrophils % 61.2 % (37.0-80.0); Platelet Count 177 K/mm3 (142-424); Red Blood Count 2.98 M/mm3 (4.60-6.20); Red Cell Distribution Width 17.6 % (11.5-17.5); White Blood Count 7.9 K/mm3 (4.8-10.8)
[2024-04-30 07:16] LABS: Albumin Level 3.2 g/dl (3.5-5.0); Chloride 110 mmol/L (98-107)
[2024-04-30 07:17] LABS: Potassium 3.9 mmoL/L (3.5-5.1); Sodium 138 mmol/L (136-145)
[2024-04-30 07:19] LABS: Alanine Aminotransferase 23 U/L (12-78); Albumin/Globulin Ratio 1.1 (1.1-1.8); Alkaline Phosphatase 116 U/L (38-126); Anion Gap 9.9 mEq/L (5-15); Aspartate Amino Transferase 24 U/L (17-59); Bilirubin,Total 0.3 mg/dl (0.2-1.3); Blood Urea Nitrogen 15 mg/dl (9-20); Calcium 7.8 mg/dl (8.4-10.2); Carbon Dioxide 22 mmol/L (22.0-30.0); Creatinine Clearance Estimated 112 mL/min (50-200); Estimated Glomerular Filt Rate 83 ml/min (>60); GFR (African American) 101 ML/MIN (>60); Glucose 167 mg/dl (74-100); Total Protein,Serum 6.2 g/dl (6.3-8.2)
[2024-04-30 07:20] LABS: Magnesium 1.7 mg/dl (1.6-2.3)
--- NOTE | 2024-04-30 07:56 | EXP.DC.SUM ---
General Admission date:: 04/27/24 Discharge date: 04/30/24 HPI HPI HPI: This is a well known 69-year-old male with PMHx of type 2 diabetes, CAD status post recent stenting 04/24/2024, hypertension, hyperlipidemia, decubitus ulcer, right AKA, chronic left foot wounds managed by podiatry, recently discharged two days ago with services; presented to the emergency department for evaluation with concern for general weakness. Patient stated that her home health nurse come to his house today, and advised him to come in for evaluation. Patient states that he has been feeling very generally weak, unable to perform his ALDs at home and even to hold head up since discharge home from the hospital. He states that he has had decreased appetite and significant nausea. He has had chills. No fevers, chest pain, shortness of breath, or significant abdominal pain. On review of systems, he does complain of some left low back pain around his left hip. He notes his foot wounds are doing well. No other specific concerns or complaints noted at this time. Patient arrives by EMS who noted he was stable en route. Hospital Course Hospital Course Hospital Course: 69-year-old male with PMHx of type 2 diabetes, CAD status post recent stenting 04/24/2024, hypertension, hyperlipidemia, decubitus ulcer, right AKA, chronic left foot wounds managed by podiatry, recently discharged two days ago with services; presented to the emergency department for evaluation with concern for general weakness. Patient also mentions he has been feeling tired fatigue. He has no appetite he has been feeling ill. Patient otherwise denied chest pain, fevers chills. Admitted for treatment of exacerbation of CHF. Tolerated regimen for over 48 hours. Stable to discharge home with all of his home health care. High risk for readmission. Problems addressed as follows: Acute exacerbation of heart failure with reduced ejection fraction arrhythmia, PVCs CAD s/p recent stent x3 -Cardiology consulted and assisting with care. Recommend continuing goal-directed therapy. Echo obtained showing an fraction of proximately 45%. BNP elevated at 4400. Diuresed during admission. Initially with IV Lasix, transitioned to p.o. Lasix 40 mg daily. Continue spironolactone 25 mg daily. Continue Jardiance 10 mg daily, Entresto 24-6 twice daily, metoprolol succinate 25 mg daily. Labs showed stable kidney function and electrolytes with potassium 3.9, magnesium 1.7, BUN 15 and creatinine 0.9 on day of discharge. -Due to recent stenting within the past 2 weeks, Continue aspirin 81 mg daily and Plavix 75 g daily. Treated with 4 mg twice daily of amiodarone during admission, transitioned back to 200 mg twice daily at discharge. Discussed pill burden with patient, recommended that he will likely transition down to 200 mg once daily in the coming weeks after follow-up with cardiology. Discussed long-term benefits and risks of Lipitor, this is a medication that if he chose not to take would be acceptable given its proven benefit long-term and extensive conversations about his current condition and prognosis. Diabetic ulcer of the left heel status post transmetatarsal amputation of the foot -Wound care consulted, dressing changed daily during admission. No indication for antibiotics, no active signs of infection. Continue Betadine soaked gauze daily with Kerlix and jeffery wrap applied. Resume home health wound care, residential, PT and OT. Generalized weakness: deconditioned; Therapy evaluating and working with patient daily. Consistent discussion every admission about the need for long-term care. Patient is adamant he will not go to a senior care again. Has assistance at home with home health. We agreed to disagree about the appropriateness of him being at home given his significant debility, excessive nursing needs, and progressively worsening health conditions. Diabetes: Most recent A1c 6.3. Continue insulin glargine 42 units nightly, sliding scale insulin with fingersticks ACHS. Morning glucose 132. Continue home regimen at discharge. Anxiety: Continue buspirone 5 mg as a day Seizure disorder: Continue Lamictal 100 mg twice daily Total time spent on discharge 32 minutes in counseling, documentation, chart review, and direct care with patient. Exam Data for Last 24 hours Vital signs and Labs for Last 24 Hours: Temp Pulse Resp BP Pulse Ox O2 Del Method 98.2 F 81 16 140/76 95 Room Air 04/30/24 04:00 04/30/24 04:00 04/30/24 04:00 04/30/24 04:00 04/30/24 04:00 04/30/24 05:00 Laboratory Results - last 24 hr 04/29/24 10:40: WBC 8.2 D, RBC 3.03 L, Hgb 8.0 L, Hct 25.5 L, MCV 84.4, MCH 26.4 L, MCHC 31.3 L, RDW 16.5, Plt Count 156, MPV 7.9, Neut % (Auto) 66.5, Lymph % (Auto) 21.9, Thomas % (Auto) 8.2, Eos % (Auto) 2.9, Baso % (Auto) 0.4, Neut # (Auto) 5.4, Lymph # (Auto) 1.8, Thomas # (Auto) 0.7, Eos # (Auto) 0.2, Baso # (Auto) 0.0, Sodium 138, Potassium 4.2, Chloride 109 H, Carbon Dioxide 22, Anion Gap 11.2, BUN 19, Creatinine 1.10 D, Estimated Creat Clear 102, Estimated GFR 66, Est GFR ( Amer) 80 D, Glucose 132 H, Calcium 7.9 L, Total Bilirubin 0.4, AST 25, ALT 26 D, Alkaline Phosphatase 113, Total Protein 6.4, Albumin 3.3 L, Globulin 3.1, Albumin/Globulin Ratio 1.1 04/29/24 16:50: POC Glucose 167 H 04/29/24 20:11: POC Glucose 167 H 04/30/24 06:00: WBC 7.9, RBC 2.98 L, Hgb 7.9 L, Hct 24.8 L, MCV 83.2, MCH 26.6 L, MCHC 31.9, RDW 17.6 H, Plt Count 177, MPV 9.1, Neut % (Auto) 61.2, Lymph % (Auto) 24.0, Thomas % (Auto) 10.5 H, Eos % (Auto) 3.8, Baso % (Auto) 0.5, Neut # (Auto) 4.8, Lymph # (Auto) 1.9, Thomas # (Auto) 0.8, Eos # (Auto) 0.3, Baso # (Auto) 0.0, Sodium 138, Potassium 3.9, Chloride 110 H, Carbon Dioxide 22, Anion Gap 9.9, BUN 15, Creatinine 0.90, Estimated Creat Clear 112, Estimated GFR 83, Est GFR ( Amer) 101 D, Glucose 167 H D, Calcium 7.8 L, Magnesium 1.7, Total Bilirubin 0.3, AST 24, ALT 23, Alkaline Phosphatase 116, Total Protein 6.2 L, Albumin 3.2 L, Globulin 3.0, Albumin/Globulin Ratio 1.1 04/30/24 06:04: POC Glucose 187 H I & O for Last 24 hours: Intake & Output 04/27/24 04/28/24 04/29/24 04/30/24 23:59 23:59 23:59 23:59 Intake Total 660 / 660 1090 / 1310 220 / 220 Output Total 2550 / 2550 1250 / 1250 1100 / 1100 Balance -1890 / -1890 -160 / 60 -880 / -880 Weight 106.821 kg 115.621 kg 114.94 kg 114.94 kg Constitutional Constitutional: no acute distress, obese, chronically ill appearing and cooperative *Routine HEENT Exam Head: Present normocephalic Eye: Present EOMI and PERRL ENT: Present mucous membranes moist *Routine Neck Exam Neck: Present supple; Absent lymphadenopathy *Routine Respiratory Exam Respiratory: Present CTA bilaterally; Absent rhonchi, wheezes or crackles *Routine Cardiovascular Exam Cardiovascular: Present RRR *Routine Abdominal Exam Abdominal: Present soft and normoactive bowel sounds; Absent tenderness *Routine Exam Comments: Long-term in-dwelling catheter in place. *Routine Extremities Exam Extremities: Absent cyanosis, clubbing or edema Comments: right leg AKA; left forefoot amputated, in bandage, no erythema *Routine Skin Exam Skin: Present erythema (Left lower extremity, chronic stasis changes) and warm; Absent rash *Routine Neurological Exam Neurological: Present alert, oriented X3 and moving all extremities; Absent altered mental status Results Data Completed and Pending Labs on day of discharge: Labs from last 24 hours 04/30/24 04/30/24 04/29/24 06:04 06:00 20:11 WBC 7.9 RBC 2.98 L Hgb 7.9 L Hct 24.8 L MCV 83.2 MCH 26.6 L MCHC 31.9 RDW 17.6 H Plt Count 177 MPV 9.1 Neut % (Auto) 61.2 Lymph % (Auto) 24.0 Thomas % (Auto) 10.5 H Eos % (Auto) 3.8 Baso % (Auto) 0.5 Neut # (Auto) 4.8 Lymph # (Auto) 1.9 Thomas # (Auto) 0.8 Eos # (Auto) 0.3 Baso # (Auto) 0.0 Sodium 138 Potassium 3.9 Chloride 110 H Carbon Dioxide 22 Anion Gap 9.9 BUN 15 Creatinine 0.90 Estimated Creat Clear 112 Estimated GFR 83 Est GFR ( Amer) 101 D Glucose 167 H D POC Glucose 187 H 167 H Calcium 7.8 L Magnesium 1.7 Total Bilirubin 0.3 AST 24 ALT 23 Alkaline Phosphatase 116 Total Protein 6.2 L Albumin 3.2 L Globulin 3.0 Albumin/Globulin Ratio 1.1 04/29/24 04/29/24 16:50 10:40 WBC 8.2 D RBC 3.03 L Hgb 8.0 L Hct 25.5 L MCV 84.4 MCH 26.4 L MCHC 31.3 L RDW 16.5 Plt Count 156 MPV 7.9 Neut % (Auto) 66.5 Lymph % (Auto) 21.9 Thomas % (Auto) 8.2 Eos % (Auto) 2.9 Baso % (Auto) 0.4 Neut # (Auto) 5.4 Lymph # (Auto) 1.8 Thomas # (Auto) 0.7 Eos # (Auto) 0.2 Baso # (Auto) 0.0 Sodium 138 Potassium 4.2 Chloride 109 H Carbon Dioxide 22 Anion Gap 11.2 BUN 19 Creatinine 1.10 D Estimated Creat Clear 102 Estimated GFR 66 Est GFR ( Amer) 80 D Glucose 132 H POC Glucose 167 H Calcium 7.9 L Magnesium Total Bilirubin 0.4 AST 25 ALT 26 D Alkaline Phosphatase 113 Total Protein 6.4 Albumin 3.3 L Globulin 3.1 Albumin/Globulin Ratio 1.1 DS: Diagnosis Discharge Diagnosis (1) Acute exacerbation of CHF (congestive heart failure): Status: Acute Code(s): I50.9 - Heart failure, unspecified Qualifiers: Heart failure type: systolic Qualified Code(s): I50.23 - Acute on chronic systolic (congestive) heart failure (2) Elevated troponin: Status: Acute Code(s): R79.89 - Other specified abnormal findings of blood chemistry (3) Arrhythmia: Status: Acute Code(s): I49.9 - Cardiac arrhythmia, unspecified Qualifiers: Arrhythmia type: ventricular tachycardia, unspecified Qualified Code(s): I47.20 - Ventricular tachycardia, unspecified (4) Diabetic ulcer of left heel associated with diabetes mellitus due to underlying condition, limited to breakdown of skin: Status: Acute Code(s): E08.621 - Diabetes mellitus due to underlying condition with foot ulcer; L97.421 - Non-pressure chronic ulcer of left heel and midfoot limited to breakdown of skin (5) S/P transmetatarsal amputation of foot: Status: Acute Code(s): Z89.439 - Acquired absence of unspecified foot Qualifiers: Laterality: left Qualified Code(s): Z89.432 - Acquired absence of left foot (6) HLD (hyperlipidemia): Status: Chronic Code(s): E78.5 - Hyperlipidemia, unspecified Qualifiers: Hyperlipidemia type: mixed hyperlipidemia Qualified Code(s): E78.2 - Mixed hyperlipidemia (7) HTN (hypertension): Status: Chronic Code(s): I10 - Essential (primary) hypertension Qualifiers: Hypertension type: primary hypertension Qualified Code(s): I10 - Essential (primary) hypertension (8) PVD (peripheral vascular disease): Status: Acute Code(s): I73.9 - Peripheral vascular disease, unspecified (9) General weakness: Status: Acute Code(s): R53.1 - Weakness Meds Home Medications and Allergies Home Medications ?Medication ?Instructions ?Recorded ?Confirmed ?Type aspirin 81 mg tablet,delayed 81 mg PO DAILY 04/20/23 04/28/24 History release furosemide 40 mg tablet 40 mg PO DAILY Fluid 04/20/23 04/28/24 History lamotrigine 100 mg tablet 100 mg PO BID 04/20/23 04/28/24 History lamotrigine 150 mg tablet 150 mg PO HS 04/21/23 04/28/24 History clopidogrel 75 mg tablet (Plavix) 75 mg PO DAILY #30 tabs 06/08/23 04/28/24 Rx metoprolol succinate 25 mg 25 mg PO DAILY #30 tabs 06/08/23 04/28/24 Rx tablet,extended release 24 hr atorvastatin 40 mg tablet 40 mg PO HS 03/03/24 04/28/24 History pantoprazole 40 mg tablet,delayed 40 mg PO DAILY 03/03/24 04/28/24 History release metoclopramide HCl 5 mg tablet 5 mg PO BIDWMEAL 03/27/24 04/28/24 History gabapentin 100 mg capsule 200 mg (2 x 100 mg) PO TID 30 days 04/01/24 04/28/24 Rx #180 caps baclofen 10 mg tablet 10 mg PO BIDP PRN Muscle Spasms 04/22/24 04/28/24 History sennosides 8.6 mg-docusate sodium 1 tab PO BID 04/22/24 04/28/24 History 50 mg tablet (Stimulant Laxative Plus) amiodarone 200 mg tablet 200 mg PO BID 30 days #60 tabs 04/25/24 04/28/24 Rx empagliflozin 10 mg tablet 10 mg PO DAILY 30 days #30 tabs 04/29/24 Rx (Jardiance) insulin glargine 100 unit/mL (3 35 unit (0.35 mL) SQ HS 30 days #0 04/29/24 04/28/24 Rx mL) subcutaneous pen (Lantus mL Solostar U-100 Insulin) sacubitril 24 mg-valsartan 26 mg 1 tab PO BID 30 days #60 tabs 04/29/24 Rx tablet (Entresto) spironolactone 25 mg tablet 25 mg PO DAILY 30 days #30 tabs 04/29/24 Rx New Prescriptions to Start Prescriptions: empagliflozin [Jardiance] Feliciano Coto sacubitril-valsartan [Entresto] Feliciano Coto spironolactone Feliciano Coto Allergies Allergy/AdvReac Type Severity Reaction Status Date / Time hydrocodone [From LORTAB] Allergy Unknown NA-NAUSEA/V Verified 04/22/24 00:02 OMITING codeine Allergy Verified 04/22/24 00:02 levetiracetam [From Keppra] Allergy Verified 04/22/24 00:02 tramadol AdvReac Unknown Verified 04/22/24 00:02 allergy reaction Discharge Plan Disposition Patient Disposition: Home Health Service Condition: Fair Discharge Order Discharge Orders: Discharge Order (Routine); Ordered 04/30/24 Ordered By: Feliciano Coto Follow up Plan Follow up with: Alec Kaiser PA [Physician Aircraft Lay Out Worker] - 05/16/24 9:45 am Gustavo Leggett MD [Primary Care Provider] - 05/01/24 10:45 am Prescriptions/Medication Reconciliation: New Jardiance 10 mg Tablet 10 mg PO DAILY 30 Days Qty: 30 0RF Entresto 24-26 mg Tablet 1 tab PO BID 30 Days Qty: 60 0RF spironolactone 25 mg Tablet 25 mg PO DAILY 30 Days Qty: 30 0RF Continued metoprolol succinate 25 mg Tablet Extended Release 24 Hr 25 mg PO DAILY Qty: 30 0RF clopidogrel [Plavix] 75 mg tablet 75 mg PO DAILY Qty: 30 0RF metoclopramide HCl 5 mg tablet 5 mg PO BIDWMEAL Patient Comments: take 1 tab(s) orally 2 times a day before meal 30 days gabapentin 100 mg Capsule 200 mg PO TID 30 Days Qty: 180 0RF furosemide 40 mg tablet 40 mg PO DAILY Patient Comments: TAKE ONE TABLET BY MOUTH ONCE DAILY aspirin 81 mg tablet,delayed release (DR/EC) 81 mg PO DAILY lamotrigine 100 mg tablet 100 mg PO BID Patient Comments: TAKE ONE TABLET BY MOUTH TWICE DAILY lamotrigine 150 mg tablet 150 mg PO HS Patient Comments: TAKE ONE TABLET BY MOUTH AT BEDTIME Rx Instructions: 150mg by mouth nightly with the 100mg tablet for seizures pantoprazole 40 mg Tablet,Delayed Release (Dr/Ec) 40 mg PO DAILY sennosides-docusate sodium [Stimulant Laxative Plus] 8.6-50 mg tablet 1 tab PO BID Patient Comments: TAKE ONE TABLET BY MOUTH TWICE DAILY baclofen 10 mg tablet 10 mg PO BIDP PRN (Reason: Muscle Spasms) Patient Comments: take 1 tab(s) orally 2 times a day as needed for muscle spasms 30 days amiodarone 200 mg Tablet 200 mg PO BID 30 Days Qty: 60 0RF Changed insulin glargine [Lantus Solostar U-100 Insulin] 100 unit/mL (3 mL) insulin pen 35 unit SQ HS 30 Days Qty: 0 0RF Held atorvastatin 40 mg tablet 40 mg PO HS Hold Instructions: consider stopping due to limited superintendent [employer] benefit given patient condition and prognosis Patient Comments: TAKE ONE TABLET BY MOUTH ONCE DAILY Discontinued losartan 50 mg tablet 50 mg PO DAILY Patient Comments: take 1 tab(s) orally once a day buspirone 5 mg tablet 5 mg PO TID Patient Comments: TAKE ONE TABLET BY MOUTH THREE TIMES DAILY Problem Reconciliation Problems Reviewed?: Yes Patient Discharge Instructions ACTIVITY: Continue current activity DIET: continue same diet Patient Instructions: DI for Heart Failure, DI for Muscle Weakness, Catheter-associated Urinary Tract Infection Print Language: Faroese Providers Primary Care Provider: Gustavo Leggett Provider: Feliciano Coto Attending Provider: Feliciano Coto
[2024-04-30 08:00] VITALS: BP 122/64; PULSE 70; PULSE 73; RESP 21; TEMP 36.8; O2SAT 95
[2024-04-30] MEDS: GABAPENTIN 100MG CAPSULE 200 MG PO (08:27)
[2024-04-30] MEDS: AMIODARONE 200MG TABLET 400 MG PO (08:27)
[2024-04-30] MEDS: ENOXAPARIN 40MG/0.4ML SYRINGE 40 MG SQ (08:27)
[2024-04-30] MEDS: SPIRONOLACTONE 25MG TABLET 25 MG PO (08:28)
[2024-04-30] MEDS: CLOPIDOGREL 75MG TAB 75 MG PO (08:28)
[2024-04-30] MEDS: SACUBITRIL PO (08:28)
[2024-04-30] MEDS: EMPAGLIFLOZIN 10 MG PO (08:28)
[2024-04-30] MEDS: METOPROLOL SUCCINATE XL 25MG TABLET 25 MG PO (08:28)
[2024-04-30] MEDS: VALSARTAN PO (08:28)
[2024-04-30] MEDS: METOCLOPRAMIDE 5 MG 1 EACH PO (08:30)
[2024-04-30] MEDS: PT OWN MED *ASPIRIN 81 MG EC TAB 1 EACH PO (09:15)
[2024-04-30] MEDS: LAMOTRIGINE 100 MG 1 EACH PO (09:16)
--- NOTE | 2024-05-01 14:06 | CARE MANAGER ---
Contacted patient related to hospital discharge. He states he feels much better than he did and has his new medications. Denies questions or concerns at this time. JESSEE Hunter
== END 2024-04-30 12:10 | disposition home health service (06) ==
LOC: ER 22:14 → 2ND 22:49
PROVIDERS: Nurse Practitioner Family; Admitting Provider Internal Medicine Adolescent Medicine; Emergency Provider Emergency Medicine; PCP Internal Medicine Adolescent Medicine; Visit Provider Internal Medicine Adolescent Medicine
DX: I11.0 Hypertensive heart disease with heart failure; I50.23 Acute on chronic systolic (congestive) heart failure; E11.621 Type 2 diabetes mellitus with foot ulcer; L97.421 Non-pressure chronic ulcer of left heel and midfoot limited to breakdown of skin; R79.89 Other specified abnormal findings of blood chemistry; I47.20 Ventricular tachycardia, unspecified; R53.1 Weakness; Z89.432 Acquired absence of left foot; E78.2 Mixed hyperlipidemia; I73.9 Peripheral vascular disease, unspecified; I49.3 Ventricular premature depolarization; G40.909 Epilepsy, unspecified, not intractable, without status epilepticus; I25.10 Atherosclerotic heart disease of native coronary artery without angina pectoris; Z89.611 Acquired absence of right leg above knee; Z95.5 Presence of coronary angioplasty implant and graft; L03.116 Cellulitis of left lower limb; N32.89 Other specified disorders of bladder; E66.9 Obesity, unspecified; Z68.34 Body mass index [BMI] 34.0-34.9, adult; D64.9 Anemia, unspecified; Z79.4 Long term (current) use of insulin; Z79.899 Other long term (current) drug therapy; Z96.0 Presence of urogenital implants
CPT/HCPCS: 36415; 71045; 74176; 80050; 80053; 81001; 82803; 82962; 83605; 83690; 83735; 83880; 84145; 84436; 84443; 84484; 85025; 85610; 85730; 86140; 87040; 87086; 87636; 93005; 93308; 99285; G0378; J0131; J1650; J1940; J2405; J7120

== ENCOUNTER 2024-05-13 12:57 | Emergency (ER) | payer MEDICARE, SELFPAY ==
[2024-05-13] VITALS (10 sets, daily range): BP systolic 108–147; BP diastolic 49–70; PULSE 51–94; RESP 13; TEMP 36.6–37; O2SAT 95–99; BMI 33.6
--- NOTE | 2024-05-13 13:21 | ED_ITS ---
Discharge Plan Disposition Patient Disposition: Home, Self-Care Condition: Good Prescriptions Prescriptions: New linezolid 600 mg tablet 600 mg PO BID 14 Days Qty: 28 0RF levofloxacin 750 mg tablet 750 mg PO DAILY 10 Days Qty: 10 0RF ondansetron HCl 4 mg tablet 4 mg PO Q8H PRN (Reason: nausea and vomiting) 4 Days Qty: 12 0RF No Action metoprolol succinate 25 mg Tablet Extended Release 24 Hr 25 mg PO DAILY Qty: 30 0RF clopidogrel [Plavix] 75 mg tablet 75 mg PO DAILY Qty: 30 0RF metoclopramide HCl 5 mg tablet 5 mg PO BIDWMEAL Patient Comments: take 1 tab(s) orally 2 times a day before meal 30 days gabapentin 100 mg Capsule 200 mg PO TID 30 Days Qty: 180 0RF Jardiance 10 mg Tablet 10 mg PO DAILY 30 Days Qty: 30 0RF Entresto 24-26 mg Tablet 1 tab PO BID 30 Days Qty: 60 0RF spironolactone 25 mg Tablet 25 mg PO DAILY 30 Days Qty: 30 0RF insulin glargine [Lantus Solostar U-100 Insulin] 100 unit/mL (3 mL) insulin pen 35 unit SQ HS 30 Days Qty: 0 0RF furosemide 40 mg tablet 40 mg PO DAILY Patient Comments: TAKE ONE TABLET BY MOUTH ONCE DAILY aspirin 81 mg tablet,delayed release (DR/EC) 81 mg PO DAILY lamotrigine 100 mg tablet 100 mg PO BID Patient Comments: TAKE ONE TABLET BY MOUTH TWICE DAILY lamotrigine 150 mg tablet 150 mg PO HS Patient Comments: TAKE ONE TABLET BY MOUTH AT BEDTIME Rx Instructions: 150mg by mouth nightly with the 100mg tablet for seizures pantoprazole 40 mg Tablet,Delayed Release (Dr/Ec) 40 mg PO DAILY atorvastatin 40 mg tablet 40 mg PO HS Patient Comments: TAKE ONE TABLET BY MOUTH ONCE DAILY sennosides-docusate sodium [Stimulant Laxative Plus] 8.6-50 mg tablet 1 tab PO BID Patient Comments: TAKE ONE TABLET BY MOUTH TWICE DAILY baclofen 10 mg tablet 10 mg PO BIDP PRN (Reason: Muscle Spasms) Patient Comments: take 1 tab(s) orally 2 times a day as needed for muscle spasms 30 days amiodarone 200 mg Tablet 200 mg PO BID 30 Days Qty: 60 0RF Referrals Follow up/Referrals: Gustavo Leggett MD [Primary Care Provider] - See instructions Activity Restrictions/Add. Instructions Additional Instructions/Restrictions: You were evaluated in the emergency department today. 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 I also recommend close follow-up with your primary care provider. upsetter setter up your prescriptions for antibiotics and take the full course as prescribed. You were given your first dose of Levaquin here today, so you will not need to start this tomorrow. Continue with wound care at home with home health as instructed by Dr. Faust. Clinical Impressions Clinical Impression: Cellulitis of left leg, Necrosis of surgical wound Instructions Patient Instructions: DI for Wound Infection Print Language Print Language: Kinyarwanda Discharge ED Provider: Jamee Tan General Adult HPI General Chief complaint: Recheck/Abnormal Lab/Rx Stated complaint: infected toes after amputation Time Seen by Provider: 05/13/24 13:02 Mode of Arrival: EMS Source of Information: Patient Limitations: No Limitations Description of Symptoms (Recalled from ER Triage Doc. by RN): pt presents to ED with c/o possible infection on left foot. pt had all toe amputated by dr li. pt reports pain began in that foot on wednesday. wednesday the home health nurse come out to changethe dressing on his left foot. home health nurse told pt to come to ED for evaluation. pt reports that he felt he may get better on his own, but decided to be checked out for left foot surgical site infection. History of Present Illness HPI narrative: This patient is a 69-year-old male with a history of CHF, diabetes, PAD, prior right lower extremity amputation, renal insufficiency, and lymphedema presenting to the emergency department for evaluation with concern for possible left foot infection. Patient reports that his home health nurse came out yesterday to change his bandages on his foot and noted abnormal drainage, so they told him to come to the ED for evaluation. He states that he did not want to come at the time because he thought it may give her on its own, but today he states he has felt kind of nauseated and just has not felt great, so he decided to come in for evaluation. No fevers or other concerns. He follows closely with Dr. Faust with podiatry who amputated the toes of his left foot with TMA on 03/28/24 and has had a complicated course with poor healing requiring frequent dressing changes and assessment weekly in podiatry clinic. He has completed multiple courses of antibiotics, including vancomycin, meropenem, linezolid, and Levaquin. He is not currently on antibiotics Related Data Home Medications ?Medication ?Instructions ?Recorded ?Confirmed aspirin 81 mg tablet,delayed 81 mg PO DAILY 04/20/23 05/08/24 release furosemide 40 mg tablet 40 mg PO DAILY Fluid 04/20/23 05/08/24 lamotrigine 100 mg tablet 100 mg PO BID 04/20/23 05/08/24 lamotrigine 150 mg tablet 150 mg PO HS 04/21/23 05/08/24 atorvastatin 40 mg tablet 40 mg PO HS 03/03/24 05/08/24 pantoprazole 40 mg tablet,delayed 40 mg PO DAILY 03/03/24 05/08/24 release metoclopramide HCl 5 mg tablet 5 mg PO BIDWMEAL 03/27/24 05/08/24 baclofen 10 mg tablet 10 mg PO BIDP PRN Muscle Spasms 04/22/24 05/08/24 sennosides 8.6 mg-docusate sodium 1 tab PO BID 04/22/24 05/08/24 50 mg tablet (Stimulant Laxative Plus) Previous Rx's ?Medication ?Instructions ?Recorded clopidogrel 75 mg tablet (Plavix) 75 mg PO DAILY #30 tabs 06/08/23 metoprolol succinate 25 mg 25 mg PO DAILY #30 tabs 06/08/23 tablet,extended release 24 hr gabapentin 100 mg capsule 200 mg (2 x 100 mg) PO TID 30 days 04/01/24 #180 caps amiodarone 200 mg tablet 200 mg PO BID 30 days #60 tabs 04/25/24 empagliflozin 10 mg tablet 10 mg PO DAILY 30 days #30 tabs 04/29/24 (Jardiance) insulin glargine 100 unit/mL (3 35 unit (0.35 mL) SQ HS 30 days #0 04/29/24 mL) subcutaneous pen (Lantus mL Solostar U-100 Insulin) sacubitril 24 mg-valsartan 26 mg 1 tab PO BID 30 days #60 tabs 04/29/24 tablet (Entresto) spironolactone 25 mg tablet 25 mg PO DAILY 30 days #30 tabs 04/29/24 levofloxacin 750 mg tablet 750 mg PO DAILY 10 days #10 tabs 05/13/24 linezolid 600 mg tablet 600 mg PO BID 14 days #28 tabs 05/13/24 ondansetron HCl 4 mg tablet 4 mg PO Q8H PRN nausea and 05/13/24 vomiting 4 days #12 tabs Allergies Allergy/AdvReac Type Severity Reaction Status Date / Time hydrocodone [From LORTAB] Allergy Unknown NA-NAUSEA/V Verified 05/08/24 14:53 OMITING codeine Allergy Verified 05/08/24 14:53 levetiracetam [From Keppra] Allergy Verified 05/08/24 14:53 tramadol AdvReac Unknown Verified 05/08/24 14:53 allergy reaction PFSH PFSH Disclaimer: The information contained in this section may have been updated after the patient was seen, as this information can be updated by other users. Medical History Seizure CAD in [place] artery Acute febrile illness Atrial flutter Bilateral cellulitis of lower leg Cellulitis Diabetes mellitus Dystrophia unguium Fatigue Fever Infestation by fly larvae Lymphedema of both lower extremities Malaise Obesity with body mass index (BMI) of 30.0 to 39.9 Peripheral vascular disease Renal insufficiency Spinal stenosis of cervical region Spinal stenosis of lumbar region Systemic inflammatory response syndrome (SIRS) Ulcers of both lower extremities Uncontrolled diabetes mellitus History of left heart catheterization (LHC) Surgical History History of amputation H/O Spinal surgery Family History Mother Breast cancer Family history of myocardial infarction Social History Smoking Status: Never smoker alcohol intake: never substance use type: marijuana current occupational status: retired and disabled Travel in the last 8 weeks: None household members: family caffeine: No ROS Obtained: Yes All systems reviewed & no additional complaints except as documented Physical Exam General General appearance: alert, in no apparent distress and obese Head Head exam: atraumatic and normocephalic Eye Eye exam: Present normal appearance, PERRL and EOMI ENT ENT exam: Present normal exam, normal oropharynx, mucous membranes moist and normal external ear exam Neck Neck exam: Present normal inspection, full ROM and trachea midline; Absent tenderness Chest Chest inspection: Present normal inspection and symmetric chest wall rise; Absent tenderness Respiratory Respiratory exam: Present normal lung sounds bilaterally; Absent respiratory distress, wheezes, stridor or accessory muscle use Cardiovascular Cardiovascular exam: Present regular rate and normal rhythm Abdominal Exam Abdominal exam: Present soft; Absent distention, tenderness or guarding Extremities Exam Extremities exam: Present edema and other (Prior right amputation. Left TMA site with necrosis and eschar but no obvious purulence. Mild erythema and warmth to the left lower extremity, which patient states is chronic and recurrent.) Back Exam Back exam: Present normal inspection and full ROM; Absent tenderness Neurological Exam Neurological exam: Present alert, oriented X3 and CN II-XII intact Psychiatric Psychiatric exam: Present normal affect and normal mood Skin Skin exam: Present warm and dry Medical Decision Making Medical Records Medical records reviewed: Yes I reviewed the patient's medical records. Lex Inquiry Pt receiving controlled substance: No Vital Signs: 05/13/24 12:58 05/13/24 13:07 05/13/24 13:11 Temperature 98.6 F Temperature Source Oral Pulse Rate 52 L Pulse Rate [Left Radial] 51 L Respiratory Rate 13 Blood Pressure 126/55 L Blood Pressure [Right Arm] 126/55 L Blood Pressure Mean Blood Pressure Mean [Right Arm] 78 02 Sat by Pulse Oximetry 98 98 99 Oxygen Delivery Method Room Air Room Air Room Air 05/13/24 13:44 05/13/24 14:01 05/13/24 14:31 Temperature Temperature Source Pulse Rate 82 80 Pulse Rate [Left Radial] Respiratory Rate Blood Pressure 136/65 128/62 113/58 L Blood Pressure [Right Arm] Blood Pressure Mean 71 Blood Pressure Mean [Right Arm] 02 Sat by Pulse Oximetry 96 99 98 Oxygen Delivery Method Room Air Room Air Room Air 05/13/24 15:03 Temperature Temperature Source Pulse Rate 94 H Pulse Rate [Left Radial] Respiratory Rate Blood Pressure 145/70 H Blood Pressure [Right Arm] Blood Pressure Mean 85 Blood Pressure Mean [Right Arm] 02 Sat by Pulse Oximetry 95 Oxygen Delivery Method Room Air Lab Data Lab results reviewed: Yes I reviewed the patient's lab results. Lab Results 05/13/24 13:15: WBC 16.1 H, RBC 3.46 L, Hgb 8.7 L, Hct 29.0 L, MCV 83.6, MCH 25.2 L, MCHC 30.2 L, RDW 18.2 H, Plt Count 508 H, MPV 8.0, Neut % (Auto) 78.1, Lymph % (Auto) 10.5, [place] % (Auto) 7.2, Eos % (Auto) 3.7, Baso % (Auto) 0.5, N eut # (Auto) 12.6 H, Lymph # (Auto) 1.7, [place] # (Auto) 1.2 H, Eos # (Auto) 0.6 H , Baso # (Auto) 0.1, Total Counted 100, Neutrophils % (Manual) 85 H, Lymphocytes % (Manual) 7 L, Monocytes % (Manual) 6, Eosinophils % (Manual) 2, Platelet Estimate Normal, RBC Morphology Normal, ESR 132 H, Sodium 135 L, Potassium 4.5, Chloride 107, Carbon Dioxide 20 L, Anion Gap 12.5, BUN 47 H, Creatinine 1.10, Estimated Creat Clear 99, Estimated GFR 66, Est GFR ( Amer) 80, Glucose 271 H, Lactate 1.2, Calcium 8.5, Total Bilirubin 0.4, AST 17, ALT 18, Alkaline Phosphatase 155 H, C-Reactive Protein 85.6 H, Total Protein 7.2, Albumin 3.6, G lobulin 3.6 H, Albumin/Globulin Ratio 1.0 L 05/13/24 13:15 05/13/24 13:15 Orders (Tests/Meds): ED MEDICATIONS Discontinued Medications Generic Name Dose Route Start Last Admin Trade Name Freq PRN Reason Stop Dose Admin Levofloxacin 750 mg 05/13/24 15:05 05/13/24 15:21 Levofloxacin 750 Mg Tablet PO 05/13/24 15:06 750 mg ONCE ONE Administration Ondansetron HCl 4 mg 05/13/24 15:10 05/13/24 15:22 Ondansetron 4mg/2ml Vial IV 05/13/24 15:11 4 mg ONCE ONE Administration ORDERS Category Date Time Status CRP [C-Reactive Protein] Stat Lab 05/13/24 13:15 Completed Complete Blood Count Auto Diff Stat Lab 05/13/24 13:15 Completed Comprehensive Metabolic Panel Stat Lab 05/13/24 13:15 Completed ESR [Erythrocyte Sedimentation Rate] Stat Lab 08/31/24 13:15 Completed Lactic Acid Stat Lab 05/13/24 13:15 Completed Blood Culture Stat Micro 05/13/24 13:18 Received Wound Culture and Gram Stain Stat Micro 05/13/24 13:36 Results Medical Decision Narrative: In summary, this patient is a 69 year old male presenting to the Emergency Department for evaluation of postop left foot wound check. Differential diagnoses considered include but are not limited to postoperative infection, acute on chronic cellulitis, postoperative abscess. Ruling out the most morbid conditions drove assessment. It should be noted patient's history includes PAD, obesity, diabetes which are not at goal therapy. This complicates all aspects of care by increasing patient's risk for morbidity. I reviewed patient's past medical records and noted previous podiatry notes with imaging and his previous management, including antibiotic courses for recurrent cellulitis as per HPI. On exam, the patient is lying comfortably in no acute distress. He is alert and oriented with normal vital signs on cardiac telemetry. His foot has worsening necrosis from imaging from podiatry note, but I do not appreciate any obvious purulence, fluctuance, or significant erythema/warmth that is new. He does note that he gets cellulitis again every time he is off antibiotics, and he is not currently on antibiotics at this time. I reached out to Dr. Faust and provided her with pictures of the patient's wounds. She advised that she agrees it does not look acutely infected, however she noted that she has advised to him that anytime he takes antibiotics, his left lower extremity cellulitis returns and he really needs a BKA because of his severe arterial disease, but he has declined this up to this point. She noted that the last time that he had debridement of his foot it did not bleed, so he is high risk for gangrene and necrosis. She advised that if his labs are abnormal, she would do antibiotics. Workup included CBC, CMP, ESR, CRP, lactic acid, blood cultures, wound culture. I considered imaging, but I do not feel that it would environmental change analyst at this point. On reassessment, the patient is resting comfortably with normal vital signs and cardiac telemetry. Labs demonstrate leukocytosis and elevated inflammatory markers, however vitals are normal with no fever. Ultimately, I feel he likely has recurrence of left lower extremity cellulitis which is chronic. I feel he is appropriate for discharge home with prescriptions for antibiotics based on prior culture results, including linezolid and Levaquin. Patient was given instructions for close follow-up with primary care as well as podiatry, strict return precautions, and he was discharged after all questions were answered. transport was arranged back home. Critical Care Critical Care Time Critical Care Time: No
[2024-05-13 13:43] LABS: Albumin Level 3.6 g/dl (3.5-5.0); Chloride 107 mmol/L (98-107); Sodium 135 mmol/L (136-145)
[2024-05-13 13:44] LABS: Potassium 4.5 mmoL/L (3.5-5.1)
[2024-05-13 13:46] LABS: Alanine Aminotransferase 18 U/L (12-78); Alkaline Phosphatase 155 U/L (38-126); Anion Gap 12.5 mEq/L (5-15); Aspartate Amino Transferase 17 U/L (17-59); Bilirubin,Total 0.4 mg/dl (0.2-1.3); Blood Urea Nitrogen 47 mg/dl (9-20); Carbon Dioxide 20 mmol/L (22.0-30.0); Creatinine Clearance Estimated 99 mL/min (50-200); Estimated Glomerular Filt Rate 66 ml/min (>60); GFR (African American) 80 ML/MIN (>60); Globulin 3.6 g/dL (1.3-3.2); Total Protein,Serum 7.2 g/dl (6.3-8.2)
[2024-05-13 13:47] LABS: Calcium 8.5 mg/dl (8.4-10.2); Glucose 271 mg/dl (74-100); Lactic Acid 1.2 mmol/L (0.7-2.1)
[2024-05-13 13:52] LABS: C-Reactive Protein 85.6 mg/L (0-4)
[2024-05-13 13:53] LABS: Basophils # 0.1 K/mm3 (0-0.2); Basophils % 0.5 % (0.1-2.0); Eosinophils # 0.6 K/mm3 (0.0-0.4); Eosinophils % 3.7 % (0.1-12.0); Hemoglobin 8.7 g/dL (14.1-18.0); Lymphocytes # 1.7 K/mm3 (0.7-4.5); Lymphocytes % 10.5 % (10-50); Mean Corpuscular HGB Conc 30.2 g/dL (31.8-35.4); Mean Corpuscular Hemoglobin 25.2 pg (27.0-31.2); Mean Corpuscular Volume 83.6 fl (80-94); Monocytes # 1.2 K/mm3 (0.1-1.0); Monocytes % 7.2 % (1.7-9.3); Neutrophils # 12.6 K/mm3 (1.8-7.8); Neutrophils % 78.1 % (37.0-80.0); Platelet Count 508 K/mm3 (142-424); Red Blood Count 3.46 M/mm3 (4.60-6.20); Red Cell Distribution Width 18.2 % (11.5-17.5); White Blood Count 16.1 K/mm3 (4.8-10.8)
[2024-05-13 13:57] LABS: MANUAL DIFFERENTIAL MANUAL DIFFERENTIAL (MANUAL DIFF)
[2024-05-13 14:33] LABS: Erythrocyte Sedimentation Rate 132 mm/hr (0-20)
[2024-05-13 15:08] LABS: Eosinophils % 2 % (0-3); Lymphocytes % 7 % (10-50); Monocytes % 6 % (2-9); Neutrophils % 85 % (42-76); Platelet Estimate Normal; RBC Morphology Normal; Total Cells Counted 100
[2024-05-13] MEDS: levoFLOXacin 750 MG TABLET PO (15:21)
[2024-05-13] MEDS: ONDANSETRON 4MG/2ML VIAL 4 MG IV (15:22)
--- NOTE | 2024-05-13 15:59 | PC.NURSE ---
EMS called but no answer at the station.
== END 2024-05-13 16:43 | disposition home or self-care (01) ==
PROVIDERS: Emergency Provider Emergency Medicine; PCP Internal Medicine Adolescent Medicine
DX: L03.116 Cellulitis of left lower limb (principal); T81.49XA Infection following a procedure, other surgical site, initial encounter; E11.52 Type 2 diabetes mellitus with diabetic peripheral angiopathy with gangrene; I48.92 Unspecified atrial flutter; I25.10 Atherosclerotic heart disease of native coronary artery without angina pectoris; Y83.5 Amputation of limb(s) as the cause of abnormal reaction of the patient, or of later complication, without mention of misadventure at the time of the procedure
CPT/HCPCS: 80053; 83605; 85007; 85025; 85027; 85651; 86140; 87040; 87070; 87077; 87186; 87205; 96374; 99285; J2405

== ENCOUNTER 2024-05-16 15:14 | Outpatient (CLI) | payer MEDICARE, SELFPAY | END 2024-05-16 23:59 | disposition home or self-care (01) | LOC: LAB.DROPOF 05-17 15:15 | PROVIDERS: PCP Nurse Practitioner; Visit Provider Nurse Practitioner | DX: S91.302A Unspecified open wound, left foot, initial encounter (principal) | CPT/HCPCS: 87070; 87077; 87186; 87205 ==

== ENCOUNTER 2024-05-17 10:36 | Outpatient (CLI) | payer MEDICARE, SELFPAY | END 2024-05-17 23:59 | disposition home or self-care (01) | LOC: RT 10:37 | PROVIDERS: PCP Internal Medicine Adolescent Medicine; Visit Provider Internal Medicine | DX: R00.2 Palpitations (principal) | CPT/HCPCS: 93225; 93227 ==

== ENCOUNTER 2024-05-28 12:25 | Emergency (ER) | payer MEDICARE, SELFPAY ==
[2024-05-28 12:25] VITALS: BP 142/75; PULSE 105; RESP 19; TEMP 36.7; O2SAT 97; BMI 31.1
--- NOTE | 2024-05-28 12:28 | ECG_ITS ---
APPROVED REPORT Exam: Resting ECG HR:105 bpm ECG Measurements Heart Rate 105 AXES MN 151 P 69 QRSd 110 QRS 61 QT 370 T 58 QTc 431 Conclusion SINUS TACHYCARDIA WITH OCCASIONAL VENTRICULAR PREMATURE COMPLEXES INFERIOR MYOCARDIAL INFARCTION , PROBABLY OLD [40+ ms Q WAVE AND/OR ST/T ABNORMALITY IN II/aVF] ABNORMAL ECG UNCONFIRMED REPORT Electronically signed by : ELVA LUNSFORD, 05/29/2024 04:27:25
--- NOTE | 2024-05-28 12:42 | PC.NURSE ---
Dr. Coronado at [facility] for pt eval
--- NOTE | 2024-05-28 12:50 | XR_ITS ---
PROCEDURE INFORMATION: Exam: XR Chest Exam date and time: 05/28/2024 1:02 PM Age: 69 years old Clinical indication: Other: Weakness TECHNIQUE: Imaging protocol: Radiologic exam of the chest. Views: 1 view. COMPARISON: CR XR CHEST PORTABLE 04/27/2024 7:48 PM FINDINGS: Lungs: Unremarkable. No consolidation. Pleural spaces: Unremarkable. No pleural effusion. No pneumothorax. Heart/Mediastinum: Unremarkable. No cardiomegaly. Bones/joints: There are no acute osseous lesions. There are chronic degenerative changes to both shoulders. IMPRESSION: No acute findings.
[2024-05-28] MEDS: LACTATED RINGERS 1000ML 1,000 ML 999 ML IV (13:15)
[2024-05-28] MEDS: ONDANSETRON 4MG/2ML VIAL 4 MG IV (13:49)
[2024-05-28 13:51] LABS: Troponin I < 0.01 ng/ml (0.00-0.034)
[2024-05-28 14:06] LABS: Basophils # 0.1 K/mm3 (0-0.2); Basophils % 0.8 % (0.1-2.0); Eosinophils # 0.1 K/mm3 (0.0-0.4); Eosinophils % 1.5 % (0.1-12.0); Hematocrit 31.7 % (42.0-52.0); Hemoglobin 9.5 g/dL (14.1-18.0); Lymphocytes # 1.7 K/mm3 (0.7-4.5); Lymphocytes % 20.2 % (10-50); Mean Corpuscular HGB Conc 29.8 g/dL (31.8-35.4); Mean Corpuscular Hemoglobin 24.3 pg (27.0-31.2); Mean Corpuscular Volume 81.7 fl (80-94); Mean Platelet Volume 8.2 fl (7.4-10.4); Monocytes # 0.6 K/mm3 (0.1-1.0); Monocytes % 6.8 % (1.7-9.3); Neutrophils # 5.8 K/mm3 (1.8-7.8); Neutrophils % 70.7 % (37.0-80.0); Platelet Count 306 K/mm3 (142-424); Red Blood Count 3.88 M/mm3 (4.60-6.20); Red Cell Distribution Width 18.1 % (11.5-17.5); White Blood Count 8.2 K/mm3 (4.8-10.8)
[2024-05-28 14:27] LABS: Microscopic, Urine URINE MICROSCOPIC (MICROSCOPIC)
[2024-05-28 14:31] VITALS: BP 137/66; PULSE 87; RESP 14; O2SAT 100
[2024-05-28 14:32] LABS: Appearance,Urine CLEAR (Clear); Bilirubin,Urine Negative (Negative); Blood, Urine TRACE-I (Negative); Color,Urine YELLOW (Yellow); Glucose,Urine (UA) 3+ (Negative); Ketones,Urine Negative (Negative); Leukocyte Esterase,Urine Negative (Negative); Nitrate,Urine Negative (Negative); PH,Urine 7.5 (5.0-8.5); Protein,Urine Negative (Negative); Specific Gravity, Urine 1.015 (1.005-1.030); Urobilinogen,Urine 0.2 EU/dl (0.2)
[2024-05-28 14:38] LABS: Albumin Level 3.7 g/dl (3.5-5.0); Chloride 107 mmol/L (98-107); Potassium 4.2 mmoL/L (3.5-5.1); Sodium 134 mmol/L (136-145)
[2024-05-28 14:41] LABS: Alanine Aminotransferase 20 U/L (12-78); Alkaline Phosphatase 114 U/L (38-126); Anion Gap 11.2 mEq/L (5-15); Aspartate Amino Transferase 21 U/L (17-59); Bilirubin,Total 0.6 mg/dl (0.2-1.3); Blood Urea Nitrogen 26 mg/dl (9-20); Calcium 9.1 mg/dl (8.4-10.2); Carbon Dioxide 20 mmol/L (22.0-30.0); Creatinine Clearance Estimated 78 mL/min (50-200); Estimated Glomerular Filt Rate 55 ml/min (>60); GFR (African American) 66 ML/MIN (>60); Globulin 3.7 g/dL (1.3-3.2); Glucose 162 mg/dl (74-100); Total Protein,Serum 7.4 g/dl (6.3-8.2)
[2024-05-28 14:42] LABS: Amorphous Sediment,Urine 2+ /lpf; Bacteria,Urine 3+ /lpf
--- NOTE | 2024-05-28 14:59 | ED_ITS ---
Discharge Plan Disposition Patient Disposition: Home, Self-Care Condition: Good Chief Complaint: Weakness Prescriptions Prescriptions: No Action doxycycline hyclate 100 mg capsule 100 mg PO BID 14 Days Qty: 28 0RF amiodarone 400 mg tablet 400 mg PO BID 30 Days Qty: 60 0RF levofloxacin 750 mg tablet 750 mg PO DAILY 14 Days Qty: 14 0RF metoprolol succinate 25 mg Tablet Extended Release 24 Hr 25 mg PO DAILY Qty: 30 0RF clopidogrel [Plavix] 75 mg tablet 75 mg PO DAILY Qty: 30 0RF metoclopramide HCl 5 mg tablet 5 mg PO BIDWMEAL Patient Comments: take 1 tab(s) orally 2 times a day before meal 30 days gabapentin 100 mg Capsule 200 mg PO TID 30 Days Qty: 180 0RF Jardiance 10 mg Tablet 10 mg PO DAILY 30 Days Qty: 30 0RF Entresto 24-26 mg Tablet 1 tab PO BID 30 Days Qty: 60 0RF spironolactone 25 mg Tablet 25 mg PO DAILY 30 Days Qty: 30 0RF insulin glargine [Lantus Solostar U-100 Insulin] 100 unit/mL (3 mL) insulin pen 35 unit SQ HS 30 Days Qty: 0 0RF linezolid 600 mg tablet 600 mg PO BID 14 Days Qty: 28 0RF ondansetron HCl 4 mg tablet 4 mg PO Q8H PRN (Reason: nausea and vomiting) 4 Days Qty: 12 0RF furosemide 40 mg tablet 40 mg PO DAILY Patient Comments: TAKE ONE TABLET BY MOUTH ONCE DAILY aspirin 81 mg tablet,delayed release (DR/EC) 81 mg PO DAILY lamotrigine 100 mg tablet 100 mg PO BID Patient Comments: TAKE ONE TABLET BY MOUTH TWICE DAILY lamotrigine 150 mg tablet 150 mg PO HS Patient Comments: TAKE ONE TABLET BY MOUTH AT BEDTIME Rx Instructions: 150mg by mouth nightly with the 100mg tablet for seizures pantoprazole 40 mg Tablet,Delayed Release (Dr/Ec) 40 mg PO DAILY atorvastatin 40 mg tablet 40 mg PO HS Patient Comments: TAKE ONE TABLET BY MOUTH ONCE DAILY sennosides-docusate sodium [Stimulant Laxative Plus] 8.6-50 mg tablet 1 tab PO BID Patient Comments: TAKE ONE TABLET BY MOUTH TWICE DAILY baclofen 10 mg tablet 10 mg PO BIDP PRN (Reason: Muscle Spasms) Patient Comments: take 1 tab(s) orally 2 times a day as needed for muscle spasms 30 days Referrals Follow up/Referrals: Provider,Referral, MD [Primary Care Provider] - See instructions Clinical Impressions Clinical Impression: Cellulitis Instructions Patient Instructions: Cellulitis Print Language Print Language: Belarusian Discharge ED Provider: Augusto Fofana General Adult HPI General Chief complaint: Weakness Stated complaint: shortness of air, weakness Time Seen by Provider: 05/28/24 12:27 Mode of Arrival: EMS Source of Information: Patient and EMS Limitations: No Limitations Description of Symptoms (Recalled from ER Triage Doc. by RN): pt presents to ED with c/o weakness, fatigue, shortness of air at times. pt reports symptoms ongoing since wednesday History of Present Illness HPI narrative: 69-year-old male presents to ED weakness, fatigue, occasional shortness of breath intermittently. 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 Patient states symptoms have been ongoing for about a week and he is concerned that perhaps his cellulitis is getting worse although he is taking antibiotics currently after his recent toe amputation. Denies chest pain, abdominal pain, nausea, vomiting, recent fever, cough, any other symptoms at this time. Related Data Home Medications ?Medication ?Instructions ?Recorded ?Confirmed aspirin 81 mg tablet,delayed 81 mg PO DAILY 04/20/23 05/23/24 release furosemide 40 mg tablet 40 mg PO DAILY Fluid 04/20/23 05/23/24 lamotrigine 100 mg tablet 100 mg PO BID 04/20/23 05/23/24 lamotrigine 150 mg tablet 150 mg PO HS 04/21/23 05/23/24 atorvastatin 40 mg tablet 40 mg PO HS 03/03/24 05/23/24 pantoprazole 40 mg tablet,delayed 40 mg PO DAILY 03/03/24 05/23/24 release metoclopramide HCl 5 mg tablet 5 mg PO BIDWMEAL 03/27/24 05/23/24 baclofen 10 mg tablet 10 mg PO BIDP PRN Muscle Spasms 04/22/24 05/23/24 sennosides 8.6 mg-docusate sodium 1 tab PO BID 04/22/24 05/23/24 50 mg tablet (Stimulant Laxative Plus) Previous Rx's ?Medication ?Instructions ?Recorded clopidogrel 75 mg tablet (Plavix) 75 mg PO DAILY #30 tabs 06/08/23 metoprolol succinate 25 mg 25 mg PO DAILY #30 tabs 06/08/23 tablet,extended release 24 hr gabapentin 100 mg capsule 200 mg (2 x 100 mg) PO TID 30 days 04/01/24 #180 caps empagliflozin 10 mg tablet 10 mg PO DAILY 30 days #30 tabs 04/29/24 (Jardiance) insulin glargine 100 unit/mL (3 35 unit (0.35 mL) SQ HS 30 days #0 04/29/24 mL) subcutaneous pen (Lantus mL Solostar U-100 Insulin) sacubitril 24 mg-valsartan 26 mg 1 tab PO BID 30 days #60 tabs 04/29/24 tablet (Entresto) spironolactone 25 mg tablet 25 mg PO DAILY 30 days #30 tabs 04/29/24 linezolid 600 mg tablet 600 mg PO BID 14 days #28 tabs 05/13/24 ondansetron HCl 4 mg tablet 4 mg PO Q8H PRN nausea and 05/13/24 vomiting 4 days #12 tabs amiodarone 400 mg tablet 400 mg PO BID 1 month #60 tabs 05/17/24 levofloxacin 750 mg tablet 750 mg PO DAILY 14 days #14 tabs 05/18/24 doxycycline hyclate 100 mg capsule 100 mg PO BID infection 14 days 05/23/24 #28 caps Allergies Allergy/AdvReac Type Severity Reaction Status Date / Time hydrocodone [From LORTAB] Allergy Unknown NA-NAUSEA/V Verified 05/16/24 11:07 OMITING codeine Allergy Verified 05/16/24 11:07 levetiracetam [From Keppra] Allergy Verified 05/16/24 11:07 tramadol AdvReac Unknown Verified 05/16/24 11:07 allergy reaction PFSH PFSH Disclaimer: The information contained in this section may have been updated after the patient was seen, as this information can be updated by other users. Medical History Seizure CAD in [place] artery Acute febrile illness Atrial flutter Bilateral cellulitis of lower leg Cellulitis Diabetes mellitus Dystrophia unguium Fatigue Fever Infestation by fly larvae Lymphedema of both lower extremities Malaise Obesity with body mass index (BMI) of 30.0 to 39.9 Peripheral vascular disease Renal insufficiency Spinal stenosis of cervical region Spinal stenosis of lumbar region Systemic inflammatory response syndrome (SIRS) Ulcers of both lower extremities Uncontrolled diabetes mellitus History of left heart catheterization (LHC) Surgical History History of amputation H/O Spinal surgery Family History Mother Breast cancer Family history of myocardial infarction Social History Smoking Status: Never smoker alcohol intake: never substance use type: marijuana current occupational status: retired and disabled Travel in the last 8 weeks: None household members: family caffeine: No ROS Obtained: Yes Systems reviewed as appropriate & no additional complaints except as documented Physical Exam General General appearance: alert and in no apparent distress Head Head exam: atraumatic and normocephalic Eye Eye exam: Present normal appearance and EOMI ENT ENT exam: Present normal exam, normal oropharynx and mucous membranes moist Neck Neck exam: Present normal inspection, full ROM and trachea midline Chest Chest inspection: Present normal inspection and symmetric chest wall rise; Absent tenderness Respiratory Respiratory exam: Present normal lung sounds bilaterally; Absent respiratory distress, wheezes or stridor Cardiovascular Cardiovascular exam: Present regular rate, normal rhythm, tachycardia and normal heart sounds Abdominal Exam Abdominal exam: Present soft and normal bowel sounds; Absent distention, tenderness, guarding, rebound or rigidity exam: Present deferred Extremities Exam Extremities exam: Present full ROM and tenderness (Mild tenderness to palpation of left lower extremity at ankle and foot, findings consistent with venous stasis changes, erythematous) Back Exam Back exam: Present other (Erythema and pressure ulcers noted on sacrum and right buttock, clean, dry, wound care bandaging in place) Neurological Exam Neurological exam: Present alert, oriented X3 and other (No focal deficit) Psychiatric Psychiatric exam: Present normal affect and normal mood Skin Skin exam: Present warm, dry, intact and erythema (Erythema noted left lower extremity) Medical Decision Making Medical Records Medical records reviewed: Yes I reviewed the patient's medical records. Lex Inquiry Pt receiving controlled substance: Yes Lex was queried for this patient: No Reason not queried -: Lex login issues Risks and benefits of using a controlled substance: were not discussed with pt by me Vital Signs: 05/28/24 12:25 05/28/24 14:31 05/28/24 15:15 Temperature 98.1 F Temperature Source Oral Pulse Rate 87 92 H Pulse Rate [Left Radial] 105 H Respiratory Rate 19 14 22 Blood Pressure 137/66 129/67 Blood Pressure [Right Arm] 142/75 H Blood Pressure Mean [Right Arm] 97 02 Sat by Pulse Oximetry 97 100 99 Oxygen Delivery Method Room Air Room Air Room Air Lab Data Lab Results 05/28/24 13:00: WBC 8.2, RBC 3.88 L, Hgb 9.5 L, Hct 31.7 L, MCV 81.7, MCH 24.3 L , MCHC 29.8 L, RDW 18.1 H, Plt Count 306, MPV 8.2, Neut % (Auto) 70.7, Lymph % (Auto) 20.2, Kaufman % (Auto) 6.8, Eos % (Auto) 1.5, Baso % (Auto) 0.8, Neut # (Auto) 5.8, Lymph # (Auto) 1.7, Kaufman # (Auto) 0.6, Eos # (Auto) 0.1, Baso # (Auto) 0.1, Sodium 134 L, Potassium 4.2, Chloride 107, Carbon Dioxide 20 L, Anion Gap 11.2, BUN 26 H, Creatinine 1.30 H, Estimated Creat Clear 78, Estimated GFR 55 L, Est GFR ( Amer) 66, Glucose 162 H, Calcium 9.1, Total Bilirubin 0.6, AST 21, ALT 20, Alkaline Phosphatase 114, Troponin I < 0.01, Total Protein 7.4, Albumin 3.7, Globulin 3.7 H, Albumin/Globulin Ratio 1.0 L 05/28/24 13:03: Lactate 2.0 05/28/24 14:15: Urine Color Yellow, Urine Appearance Clear, Urine pH 7.5, Ur Specific [place] 1.015, Urine Protein Negative, Urine Glucose (UA) 3+, Urine Ketones Negative, Urine Blood Trace-i, Urine Nitrate Negative, Urine Bilirubin Negative, Urine Urobilinogen 0.2, Ur Leukocyte Esterase Negative, Urine RBC 5- 10, Urine WBC 10-20, Ur Squamous Epith Cells 10-20, Amorphous Sediment 2+, Urine Bacteria 3+ 05/28/24 13:00 05/28/24 13:00 Orders (Tests/Meds): ED MEDICATIONS Discontinued Medications Generic Name Dose Route Start Last Admin Trade Name Ciara PRN Reason Stop Dose Admin Lactated Ringer's 1,000 mls @ 999 mls/hr 05/28/24 12:50 05/28/24 13:15 Lactated Ringer's 1000 Ml Bag IV 05/28/24 13:50 999 mls/hr .Q1H1M ONE Administration Dalbavancin 1,500 mg/ Dextrose 250 mls @ 500 mls/hr 05/28/24 16:07 IV 05/28/24 16:08 ONCE ONE Ondansetron HCl 4 mg 05/28/24 13:16 05/28/24 13:49 Ondansetron 4mg/2ml Vial IV 05/28/24 13:17 4 mg ONCE ONE Administration ORDERS Category Date Time Status Chest XR -- portable [XR chest portable] Stat Exams 05/28/24 12:50 Completed CBC w/Auto Diff [Complete Blood Count Auto Diff] Stat Lab 05/28/24 13:00 Completed CMP [Comprehensive Metabolic Panel] Stat Lab 05/28/24 13:00 Completed Lactic Acid Stat Lab 05/28/24 13:03 Completed Trop I [Troponin I] Stat Lab 05/28/24 13:00 Completed Troponin I Q3H Lab 05/28/24 16:00 Ordered Troponin I Q3H Lab 05/28/24 19:00 Ordered Urinalysis and Microscopic Stat Lab 05/28/24 14:15 Completed Blood Culture Stat Micro 05/28/24 13:00 Received Urine Culture Stat Micro 05/28/24 14:15 Received ECG Data Tracing #1: Sinus tachycardia with noted PVC, ventricular rate 105, normal axis, normal intervals, no noted ST elevation Medical Decision Narrative: Patient with history and exam per above presenting for evaluation of reported weakness, shortness of breath. Patient hemodynamically stable, alert, oriented, airway breathing circulation intact on arrival. Mildly tachycardic however patient states that he has not been drinking very much and suspect he may be dehydrated at this time. Low clinical gestalt for pulmonary embolism at this time however considered in differential and will monitor closely. Diagnoses considered include ACS, URI, pneumonia, cellulitis, dehydration ED workup and treatment included: As above. [id number] ultrasound performed by myself?consistent with cellulitis Labs were independently interpreted by me, significant for stable anemia likely of chronic disease, no noted leukocytosis, elevated creatinine however does not meet rifle criteria for CHARLIE, mild hyponatremia however consistent with prior records likely chronic. Negative troponin urinalysis negative for UTI. Imaging was independently visualized and interpreted by me, significant for as above, cellulitis noted on [id number] ultrasound left lower extremity. Chest x-ray without acute cardiopulmonary process Please refer to radiology report for full details. My clinical impression at this time is most consistent with cellulitis, anemia of chronic disease. Patient given dalbavancin for cellulitis, discharged home with close wound care follow-up as he has home health wound care. Given instructions to return to ED if symptoms worsen. I discussed my clinical impression with patient and answered all questions. At this time, the evidence for any other entities in the differential is insufficient to warrant any further testing or ED observation. This was explained to the patient. The patient was advised that persistent or worsening symptoms require further evaluation. Procedures Limited Ultrasound Indication:: Concern for cellulitis left lower extremity Views:: Soft tissue [id number] ultrasound performed left lower extremity at area of erythema Findings:: Findings consistent with cellulitis, no noted abscess Critical Care Critical Care Time Critical Care Time: No
[2024-05-28 15:15] VITALS: BP 129/67; PULSE 92; RESP 22; O2SAT 99
[2024-05-28] MEDS: DALBAVANCIN HCL 1,500 MG in DEXTROSE 5 % IN WATER 250 ML 500 MG IV (16:20)
[2024-05-28 17:01] VITALS: BP 126/64; PULSE 97; RESP 17; O2SAT 98
[2024-05-28 17:50] VITALS: BP 124/62; PULSE 82; RESP 16; TEMP 36.9
--- NOTE | 2024-05-31 11:20 | PC.NURSE ---
SPOKE WITH PETER CEVALLOS AT DR CRUZ OFFICE, STATES SHE WILL FOLLOW-UP AND TAKE CARE OF OUTPT ABX THROUGH HOME[facility]
== END 2024-05-28 17:53 | disposition home or self-care (01) ==
PROVIDERS: Student in an Organized Health Care Education/Training Program; Emergency Provider Emergency Medicine
DX: L03.116 Cellulitis of left lower limb (principal); I49.3 Ventricular premature depolarization; R00.0 Tachycardia, unspecified; B96.4 Proteus (mirabilis) (morganii) as the cause of diseases classified elsewhere
CPT/HCPCS: 71045; 80053; 81001; 83605; 84484; 85025; 87040; 87086; 87088; 87186; 93005; 96361; 96374; 96375; 99284; J0875; J2405; J7060; J7120

== ENCOUNTER 2024-05-29 16:47 | Outpatient (CLI) | payer MEDICARE, SELFPAY | END 2024-05-29 23:59 | disposition home or self-care (01) | LOC: LAB.DROPOF 05-30 10:02 | PROVIDERS: PCP Nurse Practitioner; Visit Provider Nurse Practitioner | DX: E11.622 Type 2 diabetes mellitus with other skin ulcer (principal); L03.90 Cellulitis, unspecified; L97.421 Non-pressure chronic ulcer of left heel and midfoot limited to breakdown of skin; T81.49XA Infection following a procedure, other surgical site, initial encounter; S91.309A Unspecified open wound, unspecified foot, initial encounter; Z98.890 Other specified postprocedural states; L97.30 Non-pressure chronic ulcer of unspecified ankle | CPT/HCPCS: 87070; 87077; 87186; 87205 ==

== ENCOUNTER 2024-07-17 12:06 | Outpatient (CLI) | payer MEDICARE, SELFPAY | END 2024-07-17 23:59 | disposition home or self-care (01) | LOC: LAB.DROPOF 07-18 12:07 | PROVIDERS: PCP Podiatrist; Visit Provider Podiatrist | DX: L97.421 Non-pressure chronic ulcer of left heel and midfoot limited to breakdown of skin (principal); Z51.89 Encounter for other specified aftercare; E08.621 Diabetes mellitus due to underlying condition with foot ulcer; Z89.432 Acquired absence of left foot; L08.9 Local infection of the skin and subcutaneous tissue, unspecified; Z89.611 Acquired absence of right leg above knee; Z79.4 Long term (current) use of insulin; L03.116 Cellulitis of left lower limb; F44.4 Conversion disorder with motor symptom or deficit; I73.9 Peripheral vascular disease, unspecified; L97.501 Non-pressure chronic ulcer of other part of unspecified foot limited to breakdown of skin; L97.309 Non-pressure chronic ulcer of unspecified ankle with unspecified severity; L97.329 Non-pressure chronic ulcer of left ankle with unspecified severity | CPT/HCPCS: 87070; 87077; 87186; 87205 ==

== ENCOUNTER 2024-07-25 12:38 | Emergency (ER) | payer MEDICARE, SELFPAY ==
[2024-07-25] VITALS (15 sets, daily range): BP systolic 122–178; BP diastolic 54–81; PULSE 60–80; RESP 18–20; TEMP 36.6–37; O2SAT 89–100; BMI 38.2
--- NOTE | 2024-07-25 13:52 | CT_ITS ---
FINAL REPORT TECHNIQUE: After the administration of IV contrast, axial images through the left foot was obtained by computed tomography. Sagittal and coronal reformatted images were obtained and reviewed. This study was performed with techniques to keep radiation doses as low as reasonably achievable, (ALARA). Individualized dose reduction techniques using automated exposure control or adjustment of mA and/or kV according to the patient's size were employed. CLINICAL HISTORY: climbing redness, erythema, hemorrhagic bullae COMPARISON: 03/05/2024 FINDINGS: There have been interval postoperative changes from transmetatarsal amputation. Mild degenerative changes are present. The bones are osteopenic. There is no localized bony erosion. There is widespread soft tissue edema or cellulitis, greatest dorsally. There is an apparent soft tissue ulcer at the dorsal lateral foot. No focal fluid collection is seen to suggest an abscess. There is no localized abnormal contrast enhancement. IMPRESSION: Interval operative changes from transmetatarsal amputation. Widespread soft tissue edema or cellulitis. Presumed ulcer at the dorsal lateral foot Reviewed, Interpreted and Dictated by Earnest Mancilla III, MD Transcribed by Nakia Mcconnell Authenticated and . [facility]
--- NOTE | 2024-07-25 13:52 | CT_ITS ---
FINAL REPORT TECHNIQUE: After the administration of IV contrast, axial images through the left thigh was obtained by computed tomography. Sagittal and coronal reformatted images were obtained and reviewed. This study was performed with techniques to keep radiation doses as low as reasonably achievable, (ALARA). Individualized dose reduction techniques using automated exposure control or adjustment of mA and/or kV according to the patient's size were employed. CLINICAL HISTORY: climbing redness, erythema, hemorrhagic bullae FINDINGS: No fracture is identified. There are severe degenerative changes of the hip. There are mild degenerative changes of the knee. There is no acute bony erosion. There is circumferential edema or cellulitis of the distal thigh and knee. Small knee joint effusion is identified. No focal fluid collection is seen to suggest an abscess. There is widespread vascular calcification. There is a left inguinal hernia containing fat. There is bladder wall thickening, likely inflammatory. Gas is seen in the bladder, favor iatrogenic. IMPRESSION: Circumferential edema or cellulitis of the distal thigh and knee. No evidence to suggest an abscess. Reviewed, Interpreted and Dictated by Earnest Mancilla III, MD Transcribed by Nakia Mcconnell Authenticated and [facility]
--- NOTE | 2024-07-25 13:52 | CT_ITS ---
FINAL REPORT TECHNIQUE: After the administration of IV contrast, axial images through the left lower leg was obtained by computed tomography. Sagittal and coronal reformatted images were obtained and reviewed. This study was performed with techniques to keep radiation doses as low as reasonably achievable, (ALARA). Individualized dose reduction techniques using automated exposure control or adjustment of mA and/or kV according to the patient's size were employed. CLINICAL HISTORY: climbing redness, erythema, hemorrhagic bullae FINDINGS: No fracture is identified. The bones are osteopenic. There is widespread vascular calcification. There is circumferential severe edema or cellulitis. No well-defined focal fluid collection is seen to suggest an abscess. There is no focal bony erosion. IMPRESSION: Severe circumferential soft tissue edema or cellulitis. No acute bony abnormality. Reviewed, Interpreted and Dictated by Earnest Mancilla III, MD Transcribed by Nakia Mcconnell Authenticated and [facility]
[2024-07-25 14:04] LABS: Basophils # 0.1 K/mm3 (0-0.2); Basophils % 1.1 % (0.1-2.0); Eosinophils # 0.4 K/mm3 (0.0-0.4); Eosinophils % 4.8 % (0.1-12.0); Hematocrit 32.4 % (42.0-52.0); Hemoglobin 10.3 g/dL (14.1-18.0); Lymphocytes # 1.4 K/mm3 (0.7-4.5); Mean Corpuscular HGB Conc 31.8 g/dL (31.8-35.4); Mean Corpuscular Volume 81.5 fl (80-94); Mean Platelet Volume 8.7 fl (7.4-10.4); Monocytes # 0.5 K/mm3 (0.1-1.0); Monocytes % 7.3 % (1.7-9.3); Neutrophils % 67.8 % (37.0-80.0); Platelet Count 264 K/mm3 (142-424); Red Blood Count 3.98 M/mm3 (4.60-6.20); White Blood Count 7.3 K/mm3 (4.8-10.8)
[2024-07-25 14:11] LABS: Activated Partial Thrombo Time 25.2 seconds (22.8-30.6)
[2024-07-25 14:14] LABS: Alanine Aminotransferase 37 U/L (12-78); Albumin Level 3.6 g/dl (3.5-5.0); Albumin/Globulin Ratio 1.1 (1.1-1.8); Alkaline Phosphatase 135 U/L (38-126); Anion Gap 12.4 mEq/L (5-15); Aspartate Amino Transferase 33 U/L (17-59); Bilirubin,Total 0.4 mg/dl (0.2-1.3); Blood Urea Nitrogen 39 mg/dl (9-20); Calcium 8.9 mg/dl (8.4-10.2); Carbon Dioxide 25 mmol/L (22.0-30.0); Chloride 108 mmol/L (98-107); Creatinine Clearance Estimated 124 mL/min (50-200); Estimated Glomerular Filt Rate 74 ml/min (>60); GFR (African American) 89 ML/MIN (>60); Globulin 3.3 g/dL (1.3-3.2); Glucose 198 mg/dl (74-100); Potassium 4.4 mmoL/L (3.5-5.1); Sodium 141 mmol/L (136-145); Total Protein,Serum 6.9 g/dl (6.3-8.2)
[2024-07-25 14:20] LABS: C-Reactive Protein 9.6 mg/L (0-4)
--- NOTE | 2024-07-25 14:23 | ED_ITS ---
Discharge Plan Disposition Patient Disposition: Home, Self-Care Condition: Good Prescriptions Prescriptions: No Action cefdinir 300 mg capsule PO Patient Comments: take 1 cap(s) orally every 12 hours for 14 days terbinafine HCl 250 mg tablet PO Patient Comments: take 1 tab(s) orally once a day 14 days folic acid 400 mcg tablet 0.4 mg PO DAILY doxycycline hyclate 100 mg capsule 100 mg PO BID 10 Days Qty: 20 0RF linezolid 600 mg tablet 600 mg PO BID 10 Days Qty: 20 0RF amiodarone 400 mg tablet See Rx Instructions .ROUTE .COMPLEX Qty: 180 3RF Dose Instruction: TAKE ONE TABLET BY MOUTH TWICE DAILY FOR ONE MONTH Rx Instructions: TAKE ONE TABLET BY MOUTH TWICE DAILY FOR ONE MONTH metoprolol succinate 25 mg Tablet Extended Release 24 Hr 25 mg PO DAILY Qty: 30 0RF clopidogrel [Plavix] 75 mg tablet 75 mg PO DAILY Qty: 30 0RF metoclopramide HCl 5 mg tablet 5 mg PO BIDWMEAL Patient Comments: take 1 tab(s) orally 2 times a day before meal 30 days gabapentin 100 mg Capsule 200 mg PO TID 30 Days Qty: 180 0RF Jardiance 10 mg Tablet 10 mg PO DAILY 30 Days Qty: 30 0RF Entresto 24-26 mg Tablet 1 tab PO BID 30 Days Qty: 60 0RF spironolactone 25 mg Tablet 25 mg PO DAILY 30 Days Qty: 30 0RF insulin glargine [Lantus Solostar U-100 Insulin] 100 unit/mL (3 mL) insulin pen 35 unit SQ HS 30 Days Qty: 0 0RF ondansetron HCl 4 mg tablet 4 mg PO Q8H PRN (Reason: nausea and vomiting) 4 Days Qty: 12 0RF furosemide 40 mg tablet 40 mg PO DAILY Patient Comments: TAKE ONE TABLET BY MOUTH ONCE DAILY aspirin 81 mg tablet,delayed release (DR/EC) 81 mg PO DAILY lamotrigine 100 mg tablet 100 mg PO BID Patient Comments: TAKE ONE TABLET BY MOUTH TWICE DAILY lamotrigine 150 mg tablet 150 mg PO HS Patient Comments: TAKE ONE TABLET BY MOUTH AT BEDTIME Rx Instructions: 150mg by mouth nightly with the 100mg tablet for seizures pantoprazole 40 mg Tablet,Delayed Release (Dr/Ec) 40 mg PO DAILY atorvastatin 40 mg tablet 40 mg PO HS Patient Comments: TAKE ONE TABLET BY MOUTH ONCE DAILY sennosides-docusate sodium [Stimulant Laxative Plus] 8.6-50 mg tablet 1 tab PO BID Patient Comments: TAKE ONE TABLET BY MOUTH TWICE DAILY baclofen 10 mg tablet 10 mg PO BIDP PRN (Reason: Muscle Spasms) Patient Comments: take 1 tab(s) orally 2 times a day as needed for muscle spasms 30 days Referrals Follow up/Referrals: Gustavo Leggett MD [Primary Care Provider] - See instructions Activity Restrictions/Add. Instructions Additional Instructions/Restrictions: You were evaluated in the emergency department today. At this time, your labs and imaging are actually stable. Please follow-up closely with your silviculture teacher, your primary care provider, as well as your infectious disease specialist at [facility]. Call tomorrow to schedule an appointment. Continue taking your medications at home as prescribed. Return to the emergency department for new or worsening symptoms. Clinical Impressions Clinical Impression: Chronic cellulitis Print Language Print Language: [place] Discharge ED Provider: Jamee Tan General Adult HPI <Jovan Bellamy MD - Last Filed: 07/25/24 15:34> General Chief complaint: Recheck/Abnormal Lab/Rx Stated complaint: infection in leg/ pulled catheter out Time Seen by Provider: 07/25/24 13:33 Mode of Arrival: Ambulatory Source of Information: Patient Limitations: No Limitations Description of Symptoms (Recalled from ER Triage Doc. by RN): pt came from home today via ems for foot infection and he accidently pulled out his ambrose cath yesterday, pt states he has ambrose bc of healing buttock wound from surgery with dr zimmer. pt saw dr dunne yesterday and has a wound vac on left foot, pt has a right above the knee amputation History of Present Illness HPI narrative: Please note that above description of symptoms, in this electronic medical record under categorization of recalled from ER triage doctor by RN are reflective of an initial nursing assessment, however, is not reflective of my full history and physical exam that was personally taken and clarified. Consequentially, this preceding description of symptoms, which may include the patient's categorized chief complaint in the EMR, do not reflect my personal clinical impression, and the ultimate description of history of present illness and patient stated complaints should be deferred to this section of the note. Unless stated otherwise or congruent with this section of the note, additional signs, symptoms, or incongruence should be interpreted as inaccurate with my clinical impression. Related Data Home Medications ?Medication ?Instructions ?Recorded ?Confirmed aspirin 81 mg tablet,delayed 81 mg PO DAILY 04/20/23 07/24/24 release furosemide 40 mg tablet 40 mg PO DAILY Fluid 04/20/23 07/24/24 lamotrigine 100 mg tablet 100 mg PO BID 04/20/23 07/24/24 lamotrigine 150 mg tablet 150 mg PO HS 04/21/23 07/24/24 atorvastatin 40 mg tablet 40 mg PO HS 03/03/24 07/24/24 pantoprazole 40 mg tablet,delayed 40 mg PO DAILY 03/03/24 07/24/24 release metoclopramide HCl 5 mg tablet 5 mg PO BIDWMEAL 03/27/24 07/24/24 baclofen 10 mg tablet 10 mg PO BIDP PRN Muscle Spasms 04/22/24 07/24/24 sennosides 8.6 mg-docusate sodium 1 tab PO BID 04/22/24 07/24/24 50 mg tablet (Stimulant Laxative Plus) cefdinir 300 mg capsule mg PO 06/05/24 07/24/24 terbinafine HCl 250 mg tablet mg PO 06/05/24 07/24/24 folic acid 400 mcg tablet 0.4 mg PO DAILY 06/20/24 07/24/24 Previous Rx's ?Medication ?Instructions ?Recorded clopidogrel 75 mg tablet (Plavix) 75 mg PO DAILY #30 tabs 06/08/23 metoprolol succinate 25 mg 25 mg PO DAILY #30 tabs 06/08/23 tablet,extended release 24 hr gabapentin 100 mg capsule 200 mg (2 x 100 mg) PO TID 30 days 04/01/24 #180 caps empagliflozin 10 mg tablet 10 mg PO DAILY 30 days #30 tabs 04/29/24 (Jardiance) insulin glargine 100 unit/mL (3 35 unit (0.35 mL) SQ HS 30 days #0 04/29/24 mL) subcutaneous pen (Lantus mL Solostar U-100 Insulin) sacubitril 24 mg-valsartan 26 mg 1 tab PO BID 30 days #60 tabs 04/29/24 tablet (Entresto) spironolactone 25 mg tablet 25 mg PO DAILY 30 days #30 tabs 04/29/24 ondansetron HCl 4 mg tablet 4 mg PO Q8H PRN nausea and 05/13/24 vomiting 4 days #12 tabs amiodarone 400 mg tablet See Rx Instructions .Route 06/14/24 .COMPLEX #180 tabs doxycycline hyclate 100 mg capsule 100 mg PO BID cellulitis 10 days 07/17/24 #20 caps linezolid 600 mg tablet 600 mg PO BID 10 days #20 tabs 07/17/24 Allergies Allergy/AdvReac Type Severity Reaction Status Date / Time hydrocodone [From LORTAB] Allergy Unknown NA-NAUSEA/V Verified 07/24/24 15:27 OMITING codeine Allergy Verified 07/24/24 15:27 levetiracetam [From Keppra] Allergy Verified 07/24/24 15:27 tramadol AdvReac Unknown Verified 07/24/24 15:27 allergy reaction PFSH <Jovan Bellamy MD - Last Filed: 07/25/24 15:34> [facility] Disclaimer: The information contained in this section may have been updated after the patient was seen, as this information can be updated by other users. 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 Acute febrile illness Atrial flutter Bilateral cellulitis of lower leg Cellulitis Diabetes mellitus Dystrophia unguium Fatigue Fever Infestation by fly larvae Lymphedema of both lower extremities Malaise Obesity with body mass index (BMI) of 30.0 to 39.9 Peripheral vascular disease Renal insufficiency Spinal stenosis of cervical region Spinal stenosis of lumbar region Systemic inflammatory response syndrome (SIRS) Ulcers of both lower extremities Uncontrolled diabetes mellitus History of left heart catheterization (LHC) Surgical History History of amputation H/O Spinal surgery Family History Mother Breast cancer Family history of myocardial infarction Social History Smoking Status: Never smoker alcohol intake: never substance use type: marijuana current occupational status: retired and disabled Travel in the last 8 weeks: None household members: family caffeine: No Other Medical History Have you received the Flu Vaccine for this season: No Have you received the Pneumonia Vaccine: No <Jovan Bellamy MD - Last Filed: 07/25/24 15:34> ROS Obtained: Yes All systems reviewed & no additional complaints except as documented Physical Exam <Jovan Bellamy MD - Last Filed: 07/25/24 15:34> General General appearance: alert, in no apparent distress and obese Head Head exam: atraumatic and normocephalic Eye Eye exam: Present normal appearance, PERRL and EOMI Neck Neck exam: Present normal inspection, full ROM and trachea midline Respiratory Respiratory exam: Absent respiratory distress, wheezes, stridor, accessory muscle use or prolonged expiratory phase Cardiovascular Cardiovascular exam: Present other (Pulses equal symmetric in upper and lower extremities) Abdominal Exam Abdominal exam: Present soft; Absent distention, tenderness, guarding, rebound, rigidity or pulsatile mass Extremities Exam Extremities exam: Present edema (Per MDM) Neurological Exam Neurological exam: Present alert, oriented X3 and CN II-XII intact; Absent motor sensory deficit Skin Skin exam: Present warm and dry; Absent diaphoresis or erythema Medical Decision Making <Joavn Bellamy MD - Last Filed: 07/25/24 15:34> Medical Records Medical records reviewed: Yes I reviewed the patient's medical records. Screening: Per USPSTF and CDC recommendations, given the prevalence of disease in our region, it is our hospital?s policy to screen for HIV and viral Hepatitis for all patients aged 18 and over and those with ongoing risk factors. Lex Inquiry Pt receiving controlled substance: No Lex was queried for this patient: No Vital Signs: 07/25/24 12:38 07/25/24 13:00 07/25/24 14:28 Temperature 98.6 F Temperature Source Oral Pulse Rate 68 65 Pulse Rate [Right Radial] 79 Respiratory Rate 20 Blood Pressure 146/61 H 137/63 Blood Pressure [Right Arm] 146/61 H Blood Pressure Mean 70 Blood Pressure Mean [Right Arm] 89 Blood Pressure Source 02 Sat by Pulse Oximetry 96 89 L 98 Oxygen Delivery Method Room Air 07/25/24 14:30 07/25/24 15:01 07/25/24 15:30 Temperature Temperature Source Pulse Rate 74 73 63 Pulse Rate [Right Radial] Respiratory Rate Blood Pressure 140/64 122/54 L 141/68 H Blood Pressure [Right Arm] Blood Pressure Mean 72 73 79 Blood Pressure Mean [Right Arm] Blood Pressure Source 02 Sat by Pulse Oximetry 99 98 97 Oxygen Delivery Method 07/25/24 16:00 07/25/24 16:18 07/25/24 17:00 Temperature Temperature Source Pulse Rate 70 71 Pulse Rate [Right Radial] Respiratory Rate Blood Pressure 157/73 H 152/73 H 163/77 H Blood Pressure [Right Arm] Blood Pressure Mean 90 Blood Pressure Mean [Right Arm] Blood Pressure Source 02 Sat by Pulse Oximetry 99 98 Oxygen Delivery Method 07/25/24 17:31 07/25/24 18:00 07/25/24 18:50 Temperature Temperature Source Pulse Rate 64 70 66 Pulse Rate [Right Radial] Respiratory Rate Blood Pressure 161/71 H 157/69 H 153/66 H Blood Pressure [Right Arm] Blood Pressure Mean 83 79 Blood Pressure Mean [Right Arm] Blood Pressure Source 02 Sat by Pulse Oximetry 100 Oxygen Delivery Method 07/25/24 19:35 07/25/24 20:02 07/25/24 21:36 Temperature 98 F Temperature Source Pulse Rate 60 60 80 Pulse Rate [Right Radial] Respiratory Rate 18 Blood Pressure 169/74 H 178/81 H 142/80 H Blood Pressure [Right Arm] Blood Pressure Mean Blood Pressure Mean [Right Arm] Blood Pressure Source Automatic Cuff 02 Sat by Pulse Oximetry 100 100 Oxygen Delivery Method Room Air Lab Data Lab Results 07/25/24 12:55: WBC 7.3, RBC 3.98 L, Hgb 10.3 L, Hct 32.4 L, MCV 81.5, MCH 26.0 L, MCHC 31.8, RDW 19.0 H, Plt Count 264, MPV 8.7, Neut % (Auto) 67.8, Lymph % (Auto) 19.0, [place] % (Auto) 7.3, Eos % (Auto) 4.8, Baso % (Auto) 1.1, Neut # (Auto) 5.0, Lymph # (Auto) 1.4, [place] # (Auto) 0.5, Eos # (Auto) 0.4, Baso # (Auto) 0.1, ESR 58 H, APTT 25.2, Sodium 141, Potassium 4.4, Chloride 108 H, Carbon Dioxide 25, Anion Gap 12.4, BUN 39 H, Creatinine 1.00, Estimated Creat Clear 124, Estimated GFR 74, Est GFR ( Amer) 89, Glucose 198 H, Calcium 8.9, Total Bilirubin 0.4, AST 33, ALT 37, Alkaline Phosphatase 135 H, C-Reactive Protein 9.6 H, Total Protein 6.9, Albumin 3.6, Globulin 3.3 H, Albumin/Globulin Ratio 1.1 07/25/24 14:26: VBG pH 7.41, VBG pCO2 38.9, VBG pO2 34.9, VBG HCO3 24.2, VBG Total CO2 25.4, VBG O2 Saturation 74.0 H, VBG Base Excess -0.4, VBG Lactic Acid 1.8 07/25/24 14:27: Lactate 1.0 07/25/24 18:45: Urine Color Yellow, Urine Appearance Clear, Urine pH 6.0, Ur Specific [place] 1.020, Urine Protein Negative, Urine Glucose (UA) Negative, Urine Ketones Negative, Urine Blood Trace-i, Urine Nitrate Negative, Urine Bilirubin Negative, Urine Urobilinogen 0.2, Ur Leukocyte Esterase Negative, Urine RBC 5-10, Urine WBC 5-10, Ur Squamous Epith Cells Occasional, Urine Bacteria 1+ 07/25/24 12:55 07/25/24 12:55 Orders (Tests/Meds): ED MEDICATIONS Discontinued Medications Generic Name Dose Route Start Last Admin Trade Name Freq PRN Reason Stop Dose Admin Cefepime HCl 2 gm/ Sodium 100 mls @ 200 mls/hr 07/25/24 17:24 07/25/24 17:42 Chloride IV 07/25/24 17:53 200 mls/hr ONCE ONE Administration Vancomycin HCl 2,500 mg/ 250 mls @ 125 mls/hr 07/25/24 18:00 07/25/24 18:24 Sodium Chloride IV 07/25/24 19:59 125 mls/hr ONCE ONE Administration Iopamidol 120 ml 07/25/24 14:42 07/25/24 14:44 Iopamidol-370 (76%);100ml Bottle IV 07/25/24 14:43 120 ml ONCE ONE Administration Miscellaneous 1 each 07/25/24 17:30 07/25/24 17:47 Vancomycin Consult Request NOTAPPLIC 08/24/24 17:29 1 each CONSULT PHARMACY DEEPTI Administration Sodium Chloride 10 ml 07/25/24 14:42 07/25/24 14:44 Sodium Chloride 0.9% 10ml Syr (Rad Only) IV 07/25/24 14:43 10 ml ONCE ONE Administration Sodium Chloride 50 ml 07/25/24 14:42 07/25/24 14:44 0.9 % Sodium Chloride 50 Ml Vial IV 07/25/24 14:43 50 ml ONCE ONE Administration ORDERS Category Date Time Status CT Tib/Fib LT w con Stat Cat Scan 07/25/24 13:[address] femur LT w con Stat Cat Scan 07/25/24 13:[address] foot LT w con Stat Cat Scan 07/25/24 13:52 Completed CRP [C-Reactive Protein] Stat Lab 07/25/24 12:55 Completed Complete Blood Count Auto Diff Stat Lab 07/25/24 12:55 Completed Comprehensive Metabolic Panel Stat Lab 07/25/24 12:55 Completed ESR [Erythrocyte Sedimentation Rate] Stat Lab 07/25/24 12:55 Completed Lactic Acid Stat Lab 07/25/24 14:27 Completed PTT [Activated Partial Thrombo Time] Stat Lab 07/25/24 12:55 Completed UA [Urinalysis and Microscopic] Stat Lab 07/25/24 18:45 Completed Blood Culture Stat Micro 07/25/24 14:27 Received Venous Blood Gas Stat RT 07/25/24 14:26 Completed Medical Decision Narrative: 69-year-old male chronically ill with hypertension, hyperlipidemia, morbid obesity, CKD, lower extremity BKA presenting with left lower extremity erythema and infection. Patient states that he saw podiatry yesterday, 07/25 and lower extremity was debrided, wound VAC was placed and dressings placed. States that today he noticed that there is redness climbing up his leg. New blisters near the knee. Came in for further evaluation. No systemic signs or symptoms. History was obtained via conversation with patient. On arrival, patient hemodynamically stable, alert, oriented x4, appropriate, GCS 15, moving all extremities spontaneously, pupils equal and reactive to light. Full physical exam performed and significant for chronically ill-appearing male no acute distress. Right lower extremity BKA. Left lower extremity wound VAC in place. Erythema extending from wound VAC site in the foot up the leg proximally toward the knee. 2 hemorrhagic bulla just inferior to the knee. Differential includes cellulitis, abscess, NSTI, among others. Patient placed on continuous cardiac monitoring and continuous pulse ox with initial blood pressure 146/61, heart rate when he 9, saturation 98% on room air. Independent interpretation of EKG shows sinus rhythm 73 beats a minute. No ST or T wave changes concern for acute ischemia. LA 163, QRS 133, QTc 441.Workup independently interpreted and significant for nonactionable CBC, chemistry. ESR elevated at 58, CRP mildly elevated 9.6. On independent interpretation of imaging, no obvious gas or concern for necrotizing soft tissue infection. Diffuse edema. See radiology read for full review of final results. Podiatry was contacted, prior to getting a hold of them formally or disposition, care handed off to oncoming physician. Corrugated Box Machine Operator disclaimer Much of this encounter note is an electronic formation testing operator spoken language to printed text. Electronic formation testing operator of the spoken language may permit errors. Although I have reviewed the note, some errors may still exist. <Jamee Tan, DO - Last Filed: 07/26/24 00:24> Vital Signs: 07/25/24 12:38 07/25/24 13:00 07/25/24 14:28 Temperature 98.6 F Temperature Source Oral Pulse Rate 68 65 Pulse Rate [Right Radial] 79 Respiratory Rate 20 Blood Pressure 146/61 H 137/63 Blood Pressure [Right Arm] 146/61 H Blood Pressure Mean 70 Blood Pressure Mean [Right Arm] 89 Blood Pressure Source 02 Sat by Pulse Oximetry 96 89 L 98 Oxygen Delivery Method Room Air 07/25/24 14:30 07/25/24 15:01 07/25/24 15:30 Temperature Temperature Source Pulse Rate 74 73 63 Pulse Rate [Right Radial] Respiratory Rate Blood Pressure 140/64 122/54 L 141/68 H Blood Pressure [Right Arm] Blood Pressure Mean 72 73 79 Blood Pressure Mean [Right Arm] Blood Pressure Source 02 Sat by Pulse Oximetry 99 98 97 Oxygen Delivery Method 07/25/24 16:00 07/25/24 16:18 07/25/24 17:00 Temperature Temperature Source Pulse Rate 70 71 Pulse Rate [Right Radial] Respiratory Rate Blood Pressure 157/73 H 152/73 H 163/77 H Blood Pressure [Right Arm] Blood Pressure Mean 90 Blood Pressure Mean [Right Arm] Blood Pressure Source 02 Sat by Pulse Oximetry 99 98 Oxygen Delivery Method 07/25/24 17:31 07/25/24 18:00 07/25/24 18:50 Temperature Temperature Source Pulse Rate 64 70 66 Pulse Rate [Right Radial] Respiratory Rate Blood Pressure 161/71 H 157/69 H 153/66 H Blood Pressure [Right Arm] Blood Pressure Mean 83 79 Blood Pressure Mean [Right Arm] Blood Pressure Source 02 Sat by Pulse Oximetry 100 Oxygen Delivery Method 07/25/24 19:35 07/25/24 20:02 07/25/24 21:36 Temperature 98 F Temperature Source Pulse Rate 60 60 80 Pulse Rate [Right Radial] Respiratory Rate 18 Blood Pressure 169/74 H 178/81 H 142/80 H Blood Pressure [Right Arm] Blood Pressure Mean Blood Pressure Mean [Right Arm] Blood Pressure Source Automatic Cuff 02 Sat by Pulse Oximetry 100 100 Oxygen Delivery Method Room Air Lab Data Lab Results 07/25/24 12:55: WBC 7.3, RBC 3.98 L, Hgb 10.3 L, Hct 32.4 L, MCV 81.5, MCH 26.0 L, MCHC 31.8, RDW 19.0 H, Plt Count 264, MPV 8.7, Neut % (Auto) 67.8, Lymph % (Auto) 19.0, [place] % (Auto) 7.3, Eos % (Auto) 4.8, Baso % (Auto) 1.1, Neut # (Auto) 5.0, Lymph # (Auto) 1.4, [place] # (Auto) 0.5, Eos # (Auto) 0.4, Baso # (Auto) 0.1, ESR 58 H, APTT 25.2, Sodium 141, Potassium 4.4, Chloride 108 H, Carbon Dioxide 25, Anion Gap 12.4, BUN 39 H, Creatinine 1.00, Estimated Creat Clear 124, Estimated GFR 74, Est GFR ( Amer) 89, Glucose 198 H, Calcium 8.9, Total Bilirubin 0.4, AST 33, ALT 37, Alkaline Phosphatase 135 H, C-Reactive Protein 9.6 H, Total Protein 6.9, Albumin 3.6, Globulin 3.3 H, Albumin/Globulin Ratio 1.1 07/25/24 14:26: VBG pH 7.41, VBG pCO2 38.9, VBG pO2 34.9, VBG HCO3 24.2, VBG Total CO2 25.4, VBG O2 Saturation 74.0 H, VBG Base Excess -0.4, VBG Lactic Acid 1.8 07/25/24 14:27: Lactate 1.0 07/25/24 18:45: Urine Color Yellow, Urine Appearance Clear, Urine pH 6.0, Ur Specific [place] 1.020, Urine Protein Negative, Urine Glucose (UA) Negative, Urine Ketones Negative, Urine Blood Trace-i, Urine Nitrate Negative, Urine Bilirubin Negative, Urine Urobilinogen 0.2, Ur Leukocyte Esterase Negative, Urine RBC 5-10, Urine WBC 5-10, Ur Squamous Epith Cells Occasional, Urine Bacteria 1+ Orders (Tests/Meds): ED MEDICATIONS Discontinued Medications Generic Name Dose Route Start Last Admin Trade Name Ciara PRN Reason Stop Dose Admin Cefepime HCl 2 gm/ Sodium 100 mls @ 200 mls/hr 07/25/24 17:24 07/25/24 17:42 Chloride IV 07/25/24 17:53 200 mls/hr ONCE ONE Administration Vancomycin HCl 2,500 mg/ 250 mls @ 125 mls/hr 07/25/24 18:00 07/25/24 18:24 Sodium Chloride IV 07/25/24 19:59 125 mls/hr ONCE ONE Administration Iopamidol 120 ml 07/25/24 14:42 07/25/24 14:44 Iopamidol-370 (76%);100ml Bottle IV 07/25/24 14:43 120 ml ONCE ONE Administration Miscellaneous 1 each 07/25/24 17:30 07/25/24 17:47 Vancomycin Consult Request NOTAPPLIC 08/24/24 17:29 1 each CONSULT PHARMACY DEEPTI Administration Sodium Chloride 10 ml 07/25/24 14:42 07/25/24 14:44 Sodium Chloride 0.9% 10ml Syr (Rad Only) IV 07/25/24 14:43 10 ml ONCE ONE Administration Sodium Chloride 50 ml 07/25/24 14:42 07/25/24 14:44 0.9 % Sodium Chloride 50 Ml Vial IV 07/25/24 14:43 50 ml ONCE ONE Administration ORDERS Category Date Time Status CT Tib/Fib LT w con Stat Cat Scan 07/25/24 13:[address] femur LT w con Stat Cat Scan 07/25/24 13:[address] foot LT w con Stat Cat Scan 07/25/24 13:52 Completed CRP [C-Reactive Protein] Stat Lab 07/25/24 12:55 Completed Complete Blood Count Auto Diff Stat Lab 07/25/24 12:55 Completed Comprehensive Metabolic Panel Stat Lab 07/25/24 12:55 Completed ESR [Erythrocyte Sedimentation Rate] Stat Lab 07/25/24 12:55 Completed Lactic Acid Stat Lab 07/25/24 14:27 Completed PTT [Activated Partial Thrombo Time] Stat Lab 07/25/24 12:55 Completed UA [Urinalysis and Microscopic] Stat Lab 07/25/24 18:45 Completed Blood Culture Stat Micro 07/25/24 14:27 Received Venous Blood Gas Stat RT 07/25/24 14:26 Completed Medical Decision Narrative: 69-year-old male chronically ill with hypertension, hyperlipidemia, morbid obesity, CKD, lower extremity BKA presenting with left lower extremity erythema and infection. Patient states that he saw podiatry yesterday, 07/25 and lower extremity was debrided, wound VAC was placed and dressings placed. States that today he noticed that there is redness climbing up his leg. New blisters near the knee. Came in for further evaluation. No systemic signs or symptoms. History was obtained via conversation with patient. On arrival, patient hemodynamically stable, alert, oriented x4, appropriate, GCS 15, moving all extremities spontaneously, pupils equal and reactive to light. Full physical exam performed and significant for chronically ill-appearing male no acute distress. Right lower extremity BKA. Left lower extremity wound VAC in place. Erythema extending from wound VAC site in the foot up the leg proximally toward the knee. 2 hemorrhagic bulla just inferior to the knee. Differential includes cellulitis, abscess, NSTI, among others. Patient placed on continuous cardiac monitoring and continuous pulse ox with initial blood pressure 146/61, heart rate when he 9, saturation 98% on room air. Independent interpretation of EKG shows sinus rhythm 73 beats a minute. No ST or T wave changes concern for acute ischemia. LA 163, QRS 133, QTc 441.Workup independently interpreted and significant for nonactionable CBC, chemistry. ESR elevated at 58, CRP mildly elevated 9.6. On independent interpretation of imaging, no obvious gas or concern for necrotizing soft tissue infection. Diffuse edema. See radiology read for full review of final results. Podiatry was contacted, prior to getting a hold of them formally or disposition, care handed off to oncoming physician. Corrugated Box Machine Operator disclaimer Much of this encounter note is an electronic formation testing operator spoken language to printed text. Electronic formation testing operator of the spoken language may permit errors. Although I have reviewed the note, some errors may still exist. DO Dominick: On my assessment of the patient, he is lying in bed in no acute distress. Exam appears stable from when I had seen him previously. I consulted podiatry who came down and evaluated him and noted that he actually has improved chronic cellulitis on their assessment. It looks a lot better than it did previously in clinic yesterday according to them. CT scan demonstrates diffuse cellulitis but no abscess or NSTI. Labs are reassuring and actually improved from the patient's baseline. Ultimately, based on reassuring workup and exam, it is felt that he is not requiring admission at this time. Podiatry placed him back in another Unna boot and I did go ahead and give him a dose of IV vancomycin and cefepime for antibiotic coverage prior to discharge. He will be discharged home to continue outpatient management. He was given strict return precautions and instructions for close follow-up as an outpatient. He was discharged after all questions were answered. Transport home was arranged Critical Care <Jovan Bellamy MD - Last Filed: 07/25/24 15:34> Critical Care Time Critical Care Time: No
--- NOTE | 2024-07-25 14:31 | ECG_ITS ---
APPROVED REPORT Exam: Resting ECG HR:73 bpm ECG Measurements Heart Rate 73 AXES VA 163 P 74 QRSd 133 QRS 75 QT 416 T 57 QTc 441 Conclusion SINUS RHYTHM INTRAVENTRICULAR CONDUCTION DELAY [130+ ms QRS DURATION] ABNORMAL ECG Electronically signed by : BRENDA BRITO, 07/26/2024 08:19:38
[2024-07-25 14:33] LABS: Lactate Venous 1.8 mmol/L (0.4-2.0); VBG Base Excess -0.4 mmol/L (-2.4-2.3); VBG HCO3 24.2 mmol/L (23-30); VBG PCO2 38.9 mmol/L (35-51); VBG PH 7.41 mmol/L (7.31-7.41); VBG PO2 34.9 mmol/L (28-40); VBG Total CO2 25.4 mmol/L (23-27)
[2024-07-25] MEDS: SODIUM CHLORIDE 0.9% 10ML SYR (RAD ONLY) 10 ML IV (14:44)
[2024-07-25] MEDS: IOPAMIDOL-370 (76%);100ML BOTTLE 120 ML IV (14:44)
[2024-07-25] MEDS: 0.9 % SODIUM CHLORIDE 50 ML VIAL IV (14:44)
[2024-07-25 14:52] LABS: Erythrocyte Sedimentation Rate 58 mm/hr (0-20)
--- NOTE | 2024-07-25 15:46 | PC.NURSE ---
DR TRIVEDI SPEAKING WITH DR GAMING
--- NOTE | 2024-07-25 17:18 | PC.NURSE ---
DR GAMING AT BEDSIDE
--- NOTE | 2024-07-25 17:40 | P.CONS_ITS ---
History of Present Illness *Admission Date: 07/25/24 *Reason for visit:: Patient came into ER today for his Left foot infection *History of present illness: Patient was just seen in our podiatry office yesterday for his wound VAC change and debridement. He noted he had pulled his [place] catheter out accident and need it replaced. Patient stated he was just not feeling well yesterday and was advised then to go to the emergency room to be evaluated but declined. Today he is still not feeling well, and is currently being evaluated in the ER. [facility] Disclaimer: The information contained in this section may have been updated after the patient was seen, as this information can be updated by other users. Medical History Seizure CAD in [place] artery Acute febrile illness Atrial flutter Bilateral cellulitis of lower leg Cellulitis Diabetes mellitus Dystrophia unguium Fatigue Fever Infestation by fly larvae Lymphedema of both lower extremities Malaise Obesity with body mass index (BMI) of 30.0 to 39.9 Peripheral vascular disease Renal insufficiency Spinal stenosis of cervical region Spinal stenosis of lumbar region Systemic inflammatory response syndrome (SIRS) Ulcers of both lower extremities Uncontrolled diabetes mellitus History of left heart catheterization (LHC) Surgical History History of amputation H/O Spinal surgery Family History Mother Breast cancer Family history of myocardial infarction Social History Smoking Status: Never smoker alcohol intake: never substance use type: marijuana current occupational status: retired and disabled Travel in the last 8 weeks: None household members: family caffeine: No Meds Home Medications and Allergies Home Medications ?Medication ?Instructions ?Recorded ?Confirmed ?Type aspirin 81 mg tablet,delayed 81 mg PO DAILY 04/20/23 07/24/24 History release furosemide 40 mg tablet 40 mg PO DAILY Fluid 04/20/23 07/24/24 History lamotrigine 100 mg tablet 100 mg PO BID 04/20/23 07/24/24 History lamotrigine 150 mg tablet 150 mg PO HS 04/21/23 07/24/24 History clopidogrel 75 mg tablet (Plavix) 75 mg PO DAILY #30 tabs 06/08/23 07/24/24 Rx metoprolol succinate 25 mg 25 mg PO DAILY #30 tabs 06/08/23 07/24/24 Rx tablet,extended release 24 hr atorvastatin 40 mg tablet 40 mg PO HS 03/03/24 07/24/24 History pantoprazole 40 mg tablet,delayed 40 mg PO DAILY 03/03/24 07/24/24 History release metoclopramide HCl 5 mg tablet 5 mg PO BIDWMEAL 03/27/24 07/24/24 History gabapentin 100 mg capsule 200 mg (2 x 100 mg) PO TID 30 days 04/01/24 07/24/24 Rx #180 caps baclofen 10 mg tablet 10 mg PO BIDP PRN Muscle Spasms 04/22/24 07/24/24 History sennosides 8.6 mg-docusate sodium 1 tab PO BID 04/22/24 07/24/24 History 50 mg tablet (Stimulant Laxative Plus) empagliflozin 10 mg tablet 10 mg PO DAILY 30 days #30 tabs 04/29/24 07/24/24 Rx (Jardiance) insulin glargine 100 unit/mL (3 35 unit (0.35 mL) SQ HS 30 days #0 04/29/24 07/24/24 Rx mL) subcutaneous pen (Lantus mL Solostar U-100 Insulin) sacubitril 24 mg-valsartan 26 mg 1 tab PO BID 30 days #60 tabs 04/29/24 07/24/24 Rx tablet (Entresto) spironolactone 25 mg tablet 25 mg PO DAILY 30 days #30 tabs 04/29/24 07/24/24 Rx ondansetron HCl 4 mg tablet 4 mg PO Q8H PRN nausea and 05/13/24 07/24/24 Rx vomiting 4 days #12 tabs cefdinir 300 mg capsule mg PO 06/05/24 07/24/24 History terbinafine HCl 250 mg tablet mg PO 06/05/24 07/24/24 History amiodarone 400 mg tablet See Rx Instructions .Route 06/14/24 07/24/24 Rx .COMPLEX #180 tabs folic acid 400 mcg tablet 0.4 mg PO DAILY 06/20/24 07/24/24 History doxycycline hyclate 100 mg capsule 100 mg PO BID cellulitis 10 days 07/17/24 07/24/24 Rx #20 caps linezolid 600 mg tablet 600 mg PO BID 10 days #20 tabs 07/17/24 07/24/24 Rx New Prescriptions to Start Prescriptions: Allergies Allergy/AdvReac Type Severity Reaction Status Date / Time hydrocodone [From LORTAB] Allergy Unknown NA-NAUSEA/V Verified 07/24/24 15:27 OMITING codeine Allergy Verified 07/24/24 15:27 levetiracetam [From Keppra] Allergy Verified 07/24/24 15:27 tramadol AdvReac Unknown Verified 07/24/24 15:27 allergy reaction Exam (Inpt) Vital signs and Labs for Last 24 Hours: Temp Pulse Resp BP Pulse Ox O2 Del Method 98.6 F 71 20 152/73 H 98 Room Air 07/25/24 12:38 07/25/24 16:18 07/25/24 12:38 07/25/24 16:18 07/25/24 16:18 07/25/24 12:38 Laboratory Results - last 24 hr 07/25/24 12:55: WBC 7.3, RBC 3.98 L, Hgb 10.3 L, Hct 32.4 L, MCV 81.5, MCH 26.0 L, MCHC 31.8, RDW 19.0 H, Plt Count 264, MPV 8.7, Neut % (Auto) 67.8, Lymph % (Auto) 19.0, [place] % (Auto) 7.3, Eos % (Auto) 4.8, Baso % (Auto) 1.1, Neut # (Auto) 5.0, Lymph # (Auto) 1.4, [place] # (Auto) 0.5, Eos # (Auto) 0.4, Baso # (Auto) 0.1, ESR 58 H, APTT 25.2, Sodium 141, Potassium 4.4, Chloride 108 H, Carbon Dioxide 25, Anion Gap 12.4, BUN 39 H, Creatinine 1.00, Estimated Creat Clear 124, Estimated GFR 74, Est GFR ( Amer) 89, Glucose 198 H, Calcium 8.9, Total Bilirubin 0.4, AST 33, ALT 37, Alkaline Phosphatase 135 H, C-Reactive Protein 9.6 H, Total Protein 6.9, Albumin 3.6, Globulin 3.3 H, Albumin/Globulin Ratio 1.1 07/25/24 14:26: VBG pH 7.41, VBG pCO2 38.9, VBG pO2 34.9, VBG HCO3 24.2, VBG Total CO2 25.4, VBG O2 Saturation 74.0 H, VBG Base Excess -0.4, VBG Lactic Acid 1.8 07/25/24 14:27: Lactate 1.0 I & O for Labs for Last 24 Hours: Intake & Output 07/22/24 07/23/24 07/24/24 07/25/24 23:59 23:59 23:59 23:59 Weight 282 lb 3.067 oz Microbiology Reports for the Last 24 Hours: Microbiology 03/27/24 17:20 Blood Blood Culture - Preliminary NO GROWTH AFTER 48 HOURS 03/27/24 17:20 Blood Blood Culture - Preliminary NO GROWTH AFTER 48 HOURS Constitutional: Present no acute distress, obese and cooperative Head: Present normocephalic Eye: Present as per HPI Neck: Present normal inspection and trachea midline Respiratory: Present normal respiratory effort and able to speak in complete sentences Cardiac: Present posterior tibial pulses present and pedal pulses present Comment:: 2+ pedal edema, palpable DP/PT pulses to Left foot, Right AKA noted. Has recent LLE stent. His edema and erythema has improved some since I saw him last in the office. Skin is looser and not as tight, had a fluid blister to his medial lower leg that popped clear drainage yesterday, leg appears not as warm. Unna boot was applied again to his lower left leg. Wound Vac in place, the unit was changed out in the office yesterday by Podiatry staff and myself. Vac remains intact and draining well. GI: Present soft Comments:: deferred Rectal (male): Present deferred (male): Present deferred Extremities: Present normal capillary refill and edema (2+ Left pedal edema, LLE cellulitis, Ulcer to L Lower leg cultured.); Absent calf tenderness Comment:: S/P Left Transmetatarsal amputation, sutures intact. Improvement noted to the left lower leg and foot cellulitis. Plan to leave sutures in place another couple of weeks to keep site from wound dehiscence. No drainage, brownish/black tissue noted centrally and dorsal foot from suture line. Skin: Present intact, erythema (improving), warm and wounds (S/P Left TMA, left lower leg, small little ulcers to top of TMA site and now medial leg from popped blisters. ) Comment:: Last office visit debridement measuresements: 07/24/24: s/p Left TMA with full thickness wound dehiscence noted. Stable LLE distal leg cellulitis stable. 2+ pitting edema to LLE. Sharp excisional full thickness wound debridement thru skin into subq into deep fascia. Post debridement: Left TMA DFU: 80% granular, 20% yellow fibrotic, 7.6 x 6.6 x 0.5cm. Some drainage noted, new WCx taken. Dorsal foot over navicular: thru skin into subq, 100%, 0.7 x 0.8 x 0.2 cm. Left midfoot ulcer: thru skin into subq, 100% granular, 1.2 x 0.3 x 0.1 cm. Left proximal TMA: 0.4 x 0.3 x 0cm . Left anterior ankle ulcer: thru skin, 100% granular, healed. Left medial ankle ulcer: thru skin, 100% granular, 0.6 x 0.7 x 0.1cm. Neuro: Present Motor Function Intact, Grossly Intact, oriented x 3, tone normal and moves all extremities Comment:: Hx of neuropathy Ankle: left: swelling (LLE edema, erythema improving ), left: tenderness, left: wound (s/p left TMA) and left: decreased ROM (Right AKA noted) Feet/Toes: left: erythema (L leg and TMA cellulitis ), left: swelling (S/P L TMA), left: tenderness (amp site) and left: wound (left TMA, cellulitis ) and bilateral: amputation (L TMA, Right AKA ) and bilateral: decreased ROM Inspection: Present foot deformity deformity: Present hammer toes, infection (cellulitis Left lower leg and foot ) and other (Right AKA, s/p left TMA) Pulses: L dorsalis pedis pulse: normal, R dorsalis pedis pulse: normal, L posterior tibial pulse: normal and R posterior tibial pulse: normal CFT: normal: CFT Results Labs 07/25/24 12:55 07/25/24 12:55 Labs: Abnormal lab results 07/25/24 07/25/24 Range/Units 12:55 14:26 RBC 3.98 L (4.60-6.20) M/mm3 Hgb 10.3 L (14.1-18.0) g/dL Hct 32.4 L (42.0-52.0) % MCH 26.0 L (27.0-31.2) pg RDW 19.0 H (11.5-17.5) % ESR 58 H (0-20) mm/hr VBG O2 Saturation 74.0 H (50-70) % Chloride 108 H (98-107) mmol/L BUN 39 H (9-20) mg/dl Glucose 198 H (74-100) mg/dl Alkaline Phosphatase 135 H (38-126) U/L C-Reactive Protein 9.6 H (0-4) mg/L Globulin 3.3 H (1.3-3.2) g/dL H & H 07/25/24 Range/Units 12:55 Hgb 10.3 L (14.1-18.0) g/dL Hct 32.4 L (42.0-52.0) % All other labs normal. Assessment and Plan *Assessment and plan (1) S/P transmetatarsal amputation of foot: Status: Acute Qualifiers: Laterality: left Qualified Code(s): Z89.432 - Acquired absence of left foot Category: Surgical Code(s): Z89.439 - Acquired absence of unspecified foot (2) HLD (hyperlipidemia): Status: Chronic Qualifiers: Hyperlipidemia type: mixed hyperlipidemia Qualified Code(s): E78.2 - Mixed hyperlipidemia Category: Medical Code(s): E78.5 - Hyperlipidemia, unspecified (3) HTN (hypertension): Status: Chronic Qualifiers: Hypertension type: primary hypertension Qualified Code(s): I10 - Essential (primary) hypertension Category: Medical Code(s): I10 - Essential (primary) hypertension (4) Debility: Status: Acute Category: Medical Code(s): R53.81 - Other malaise (5) PVD (peripheral vascular disease): Status: Acute Category: Medical Code(s): I73.9 - Peripheral vascular disease, unspecified (6) Diabetic ankle ulcer: Problem Comment: 05/16/24- L anterior ankle ulcer (initially was a blister that popped) Status: Acute Category: Medical Code(s): E11.622 - Type 2 diabetes mellitus with other skin ulcer; L97.309 - Non-pressure chronic ulcer of unspecified ankle with unspecified severity (7) Cellulitis: Status: Acute Qualifiers: Laterality: left Site of cellulitis: extremity Site of cellulitis of extremity: lower extremity Qualified Code(s): L03.116 - Cellulitis of left lower limb Category: Medical Code(s): L03.90 - Cellulitis, unspecified (8) Diabetic ulcer of foot associated with diabetes mellitus due to underlying condition, limited to breakdown of skin: Problem Comment: 05/16/24- L dorsal foot ulcer Status: Acute Qualifiers: Diabetic foot ulcer location: midfoot Laterality: left Qualified Code(s): E08.621 - Diabetes mellitus due to underlying condition with foot ulcer; L97.421 - Non-pressure chronic ulcer of left heel and midfoot limited to breakdown of skin Category: Medical Code(s): E08.621 - Diabetes mellitus due to underlying condition with foot ulcer; L97.501 - Non-pressure chronic ulcer of other part of unspecified foot limited to breakdown of skin (9) Cellulitis of left leg: Status: Acute Category: Medical Code(s): L03.116 - Cellulitis of left lower limb (10) Diabetic foot infection: Status: Acute Category: Medical Code(s): E11.628 - Type 2 diabetes mellitus with other skin complications; L08.9 - Local infection of the skin and subcutaneous tissue, unspecified (11) Right above-knee amputee: Status: Acute Category: Medical Code(s): Z89.611 - Acquired absence of right leg above knee Plan Patient is a 69-year-old male with past medical history of diabetes mellitus morbid obesity, peripheral artery disease who presents to the hospital due to not feeling well. Patient also mentions he has been feeling tired fatigue. Patient otherwise denied chest pain, fevers chills. He also denies shortness of breath normally does not walk he recently had foot surgery by podiatry TMA amputations. Podiatry consult Left TMA/ I&D, sx. 03/28/24 Reviewed Labs: 07/25/24: WBC 7.3, ESR 58, bun 39, creatinine 1.00, glucose 198, CRP 9.[address] left foot with contrast 07/25/2024 findings: There have been interval postoperative changes from transmetatarsal amputation. Mild degenerative changes are present. The bones are osteopenic. There is no localized bony erosion. There is widespread soft tissue edema or cellulitis, greatest dorsally. There is an apparent soft tissue ulcer at the dorsal lateral foot. No focal fluid collection is seen to suggest an abscess. There is no localized abnormal contrast enhancement. IMPRESSION: Interval operative changes from transmetatarsal amputation. Widespread soft tissue edema or cellulitis. Presumed ulcer at the dorsal lateral foot L Foot cellulitis, L s/p TMA: S/p Left foot transmetatarsal amputation, Left foot irrigation and wide excisional debridement -We do recommend for him to receive IV antibiotics for his current cellulitis and foot infection while he is here in the ER. -07/17/24, WCx left foot: Escherichia coli, Gram Negative Rods#2 -Proteus mirabilis -we discussed for him to complete Doxy to continue due to07/17/24: E coli growth. and Zyvox for the -Proteus mirabilis Doxy 100mg BID, Zyvox 600mg BID x10d (07/17-07/27/24). -discussed high risk for further debridement, limb loss due to severe PAD, hx DFU, chronic cellulitis, OM, recurrent infection, gangrene. -discussed possibility of need for debridement/further amp in future, but pt is refusing. pt has been offered BKA in past but has and continues to refuse. -application of wound vac to left foot today @125mmHg med continuous. -application of LLE unna boot for increased pitting edema. -maintain dressing clean dry and intact until C changes. -float/off load left heel on pillow. -NWB to LLE with wheelchair. -follow up in office in 1 week for wound check, debridement, vac change. -All order per Dr. Faust
[2024-07-25] MEDS: CEFEPIME HCL 2 GM in 0.9 % SODIUM CHLORIDE 100 ML IV (17:42)
[2024-07-25] MEDS: VANCOMYCIN CONSULT REQUEST 1 EACH NOTAPPLIC (17:47)
[2024-07-25] MEDS: VANCOMYCIN HCL 2,500 MG in 0.9 % SODIUM CHLORIDE 250 ML 125 MG IV (18:24)
--- NOTE | 2024-07-25 18:56 | PC.NURSE ---
replaced ambrose per home health with size 12 frpt removed his accidentally yesterday and was sent here to have it replaced and his leg infection checked
[2024-07-25 19:03] LABS: Microscopic, Urine URINE MICROSCOPIC (MICROSCOPIC)
[2024-07-25 19:04] LABS: Appearance,Urine CLEAR (Clear); Bilirubin,Urine Negative (Negative); Blood, Urine TRACE-I (Negative); Color,Urine YELLOW (Yellow); Glucose,Urine (UA) Negative (Negative); Ketones,Urine Negative (Negative); Leukocyte Esterase,Urine Negative (Negative); Nitrate,Urine Negative (Negative); Protein,Urine Negative (Negative); Urobilinogen,Urine 0.2 EU/dl (0.2)
[2024-07-25 19:17] LABS: Bacteria,Urine 1+ /lpf; Squamous Epithelial Cell,Urine Occasional #/hpf (0-5)
== END 2024-07-25 21:37 | disposition home or self-care (01) ==
PROVIDERS: Emergency Medicine; Emergency Provider Emergency Medicine; PCP Internal Medicine Adolescent Medicine
DX: L08.9 Local infection of the skin and subcutaneous tissue, unspecified (principal); Z89.432 Acquired absence of left foot; E78.2 Mixed hyperlipidemia; I10 Essential (primary) hypertension; R53.81 Other malaise; I73.9 Peripheral vascular disease, unspecified; L97.309 Non-pressure chronic ulcer of unspecified ankle with unspecified severity; L03.116 Cellulitis of left lower limb; E08.621 Diabetes mellitus due to underlying condition with foot ulcer; L97.421 Non-pressure chronic ulcer of left heel and midfoot limited to breakdown of skin; Z89.611 Acquired absence of right leg above knee
CPT/HCPCS: 51702; 73701; 80053; 81001; 82803; 83605; 85025; 85651; 85730; 86140; 87040; 93005; 96365; 96367; 99285; J3370; Q9967

== ENCOUNTER 2024-08-01 10:31 | Emergency (ER) | payer MEDICARE, SELFPAY ==
[2024-08-01] VITALS (20 sets, daily range): BP systolic 108–198; BP diastolic 49–174; PULSE 64–115; RESP 13–25; TEMP 36.7–36.9; O2SAT 94–97; BMI 31.1
--- NOTE | 2024-08-01 10:34 | ECG_ITS ---
APPROVED REPORT Exam: Resting ECG HR:79 bpm ECG Measurements Heart Rate 79 AXES PA 167 P 67 QRSd 117 QRS 36 QT 398 T 31 QTc 433 Conclusion SINUS RHYTHM INFERIOR MYOCARDIAL INFARCTION , PROBABLY OLD [40+ ms Q WAVE AND/OR ST/T ABNORMALITY IN II/aVF] No STEMI Electronically signed by : FAIZAN DIAMOND, 08/01/2024 15:35:22
--- NOTE | 2024-08-01 10:51 | CT_ITS ---
PROCEDURE INFORMATION: Exam: CT Head Without Contrast Exam date and time: 08/01/2024 11:17 AM Age: 69 years old Clinical indication: Altered mental status/memory loss; Additional info: AMS, focal sz? TECHNIQUE: Imaging protocol: Computed tomography of the head without contrast. Radiation optimization: All CT scans at this facility use at least one of these dose optimization techniques: automated exposure control; mA and/or kV adjustment per patient size (includes targeted exams where dose is matched to clinical indication); or iterative reconstruction. COMPARISON: No relevant prior studies available. FINDINGS: Brain: There is no evidence of acute parenchymal hemorrhage, extra-axial collection, or acute infarction. There is no mass effect, midline shift, or downward herniation. Cerebral ventricles: No ventriculomegaly. Paranasal sinuses: Visualized sinuses are unremarkable. No fluid levels. Mastoid air cells: Visualized mastoid air cells are well aerated. Bones: Unremarkable. No acute fracture. Soft tissues: Unremarkable. IMPRESSION: No acute intracranial abnormality.
--- NOTE | 2024-08-01 10:51 | XR_ITS ---
PROCEDURE INFORMATION: Exam: XR Chest Exam date and time: 08/01/2024 11:25 AM Age: 69 years old Clinical indication: Other: AMS TECHNIQUE: Imaging protocol: Radiologic exam of the chest. Views: 1 view. COMPARISON: CR XR CHEST PORTABLE 05/28/2024 1:02 PM FINDINGS: Lungs: Unremarkable. No consolidation. Pleural spaces: Unremarkable. No pleural effusion. No pneumothorax. Heart/Mediastinum: The heart size is not well assessed. Bones/joints: Unremarkable. IMPRESSION: No acute findings.
[2024-08-01] MEDS: LORazepam 2MG/ML VIAL 1 MG IV ×2 (10:53→11:41)
[2024-08-01 11:04] LABS: Basophils # 0.1 K/mm3 (0-0.2); Basophils % 0.7 % (0.1-2.0); Eosinophils # 0.3 K/mm3 (0.0-0.4); Eosinophils % 2.7 % (0.1-12.0); Hematocrit 30.9 % (42.0-52.0); Hemoglobin 10.4 g/dL (14.1-18.0); Lymphocytes # 2.1 K/mm3 (0.7-4.5); Lymphocytes % 19.9 % (10-50); Mean Corpuscular HGB Conc 33.8 g/dL (31.8-35.4); Mean Corpuscular Hemoglobin 25.9 pg (27.0-31.2); Mean Corpuscular Volume 76.8 fl (80-94); Mean Platelet Volume 8.3 fl (7.4-10.4); Monocytes # 0.9 K/mm3 (0.1-1.0); Monocytes % 9.1 % (1.7-9.3); Neutrophils % 67.6 % (37.0-80.0); Platelet Count 198 K/mm3 (142-424); Red Blood Count 4.02 M/mm3 (4.60-6.20); Red Cell Distribution Width 18.1 % (11.5-17.5); White Blood Count 10.3 K/mm3 (4.8-10.8)
[2024-08-01 11:08] LABS: Ethyl Alcohol < 10 mg/dl (0-10)
[2024-08-01 11:09] LABS: Alanine Aminotransferase 41 U/L (12-78); Albumin Level 3.7 g/dl (3.5-5.0); Albumin/Globulin Ratio 1.1 (1.1-1.8); Alkaline Phosphatase 146 U/L (38-126); Anion Gap 13.2 mEq/L (5-15); Aspartate Amino Transferase 39 U/L (17-59); Bilirubin,Total 0.4 mg/dl (0.2-1.3); Blood Urea Nitrogen 27 mg/dl (9-20); Calcium 8.9 mg/dl (8.4-10.2); Carbon Dioxide 25 mmol/L (22.0-30.0); Chloride 105 mmol/L (98-107); Creatinine Clearance Estimated 85 mL/min (50-200); Estimated Glomerular Filt Rate 60 ml/min (>60); GFR (African American) 72 ML/MIN (>60); Globulin 3.4 g/dL (1.3-3.2); Glucose 123 mg/dl (74-100); Potassium 4.2 mmoL/L (3.5-5.1); Sodium 139 mmol/L (136-145); Total Protein,Serum 7.1 g/dl (6.3-8.2)
[2024-08-01 11:14] LABS: Lactic Acid 1.2 mmol/L (0.7-2.1)
[2024-08-01 11:32] LABS: Troponin I < 0.01 ng/ml (0.00-0.034)
[2024-08-01] MEDS: 0.9 % SODIUM CHLORIDE 1000ML 1,000 ML 999 ML IV (12:17)
[2024-08-01 12:25] LABS: Microscopic, Urine URINE MICROSCOPIC (MICROSCOPIC)
[2024-08-01 12:27] LABS: Appearance,Urine CLEAR (Clear); Bilirubin,Urine Negative (Negative); Blood, Urine 1+ (Negative); Color,Urine YELLOW (Yellow); Glucose,Urine (UA) Negative (Negative); Ketones,Urine Negative (Negative); Leukocyte Esterase,Urine TRACE (Negative); Nitrate,Urine Negative (Negative); Protein,Urine TRACE (Negative); Specific Gravity, Urine 1.025 (1.005-1.030); Urobilinogen,Urine 0.2 EU/dl (0.2)
[2024-08-01 12:39] LABS: Benzodiazepines Screen,Urine Negative ng/ml (<200)
[2024-08-01 12:40] LABS: Bacteria,Urine Trace /lpf; RBC,Urine Occasional #/hpf (0-3); Squamous Epithelial Cell,Urine Occasional #/hpf (0-5); WBC,Urine Occasional #/hpf (0-3)
[2024-08-01 12:40] LABS: Amphetamine/Metha Screen,Urine Negative ng/ml (<1000); Barbiturates Screen,Urine Negative ng/ml (<200)
[2024-08-01 12:41] LABS: Cannabinoid Screen,Urine Positive ng/ml (<50)
[2024-08-01 12:42] LABS: Cocaine Screen,Urine Negative ng/ml (<300); Methadone Screen,Urine Negative ng/ml (<300)
[2024-08-01 12:43] LABS: Opiate Screen,Urine Negative ng/ml (<300)
[2024-08-01 12:44] LABS: Phencyclidine Screen,Urine Negative ng/ml (<25)
--- NOTE | 2024-08-01 13:51 | HMH.EDGENADL ---
Discharge Plan Disposition Patient Disposition: Home, Self-Care Condition: Good Prescriptions Prescriptions: No Action cefdinir 300 mg capsule PO Patient Comments: take 1 cap(s) orally every 12 hours for 14 days terbinafine HCl 250 mg tablet PO Patient Comments: take 1 tab(s) orally once a day 14 days folic acid 400 mcg tablet 0.4 mg PO DAILY doxycycline hyclate 100 mg capsule 100 mg PO BID 10 Days Qty: 20 0RF linezolid 600 mg tablet 600 mg PO BID 10 Days Qty: 20 0RF amiodarone 400 mg tablet See Rx Instructions .ROUTE .COMPLEX Qty: 180 3RF Dose Instruction: TAKE ONE TABLET BY MOUTH TWICE DAILY FOR ONE MONTH Rx Instructions: TAKE ONE TABLET BY MOUTH TWICE DAILY FOR ONE MONTH metoprolol succinate 25 mg Tablet Extended Release 24 Hr 25 mg PO DAILY Qty: 30 0RF clopidogrel [Plavix] 75 mg tablet 75 mg PO DAILY Qty: 30 0RF metoclopramide HCl 5 mg tablet 5 mg PO BIDWMEAL Patient Comments: take 1 tab(s) orally 2 times a day before meal 30 days gabapentin 100 mg Capsule 200 mg PO TID 30 Days Qty: 180 0RF Jardiance 10 mg Tablet 10 mg PO DAILY 30 Days Qty: 30 0RF Entresto 24-26 mg Tablet 1 tab PO BID 30 Days Qty: 60 0RF spironolactone 25 mg Tablet 25 mg PO DAILY 30 Days Qty: 30 0RF insulin glargine [Lantus Solostar U-100 Insulin] 100 unit/mL (3 mL) insulin pen 35 unit SQ HS 30 Days Qty: 0 0RF ondansetron HCl 4 mg tablet 4 mg PO Q8H PRN (Reason: nausea and vomiting) 4 Days Qty: 12 0RF furosemide 40 mg tablet 40 mg PO DAILY Patient Comments: TAKE ONE TABLET BY MOUTH ONCE DAILY aspirin 81 mg tablet,delayed release (DR/EC) 81 mg PO DAILY lamotrigine 100 mg tablet 100 mg PO BID Patient Comments: TAKE ONE TABLET BY MOUTH TWICE DAILY lamotrigine 150 mg tablet 150 mg PO HS Patient Comments: TAKE ONE TABLET BY MOUTH AT BEDTIME Rx Instructions: 150mg by mouth nightly with the 100mg tablet for seizures pantoprazole 40 mg Tablet,Delayed Release (Dr/Ec) 40 mg PO DAILY atorvastatin 40 mg tablet 40 mg PO HS Patient Comments: TAKE ONE TABLET BY MOUTH ONCE DAILY sennosides-docusate sodium [Stimulant Laxative Plus] 8.6-50 mg tablet 1 tab PO BID Patient Comments: TAKE ONE TABLET BY MOUTH TWICE DAILY baclofen 10 mg tablet 10 mg PO BIDP PRN (Reason: Muscle Spasms) Patient Comments: take 1 tab(s) orally 2 times a day as needed for muscle spasms 30 days Referrals Follow up/Referrals: Gustavo Leggett MD [Primary Care Provider] - See instructions Activity Restrictions/Add. Instructions Additional Instructions/Restrictions: You were evaluated in the ER and are appropriate for discharge at this time. Take your medications as prescribed. Follow-up with your primary care doctor and podiatry for reevaluation. Return to the ER with new, worsening, or otherwise concerning symptoms. Clinical Impressions Clinical Impression: Cellulitis of left leg, Altered mental status Instructions Patient Instructions: DI for Altered Mental Status Print Language Print Language: Slovenian Discharge ED Provider: Marcia Barnes General Adult HPI General Chief complaint: Altered Mental Status Stated complaint: dizziness Time Seen by Provider: 08/01/24 10:41 Mode of Arrival: EMS Source of Information: EMS Limitations: Altered Mental Status Description of Symptoms (Recalled from ER Triage Doc. by RN): PT IS ALTERED,CONFUSED,MINIMALLY RESPONSIVE. History of Present Illness HPI narrative: 69-year-old male well-known to this emergency department with a history of seizure disorder, diabetes, CAD, diabetic ulcer, previous osteomyelitis, hypertension, hyperlipidemia, peripheral vascular disease presents to the ER for complaints of altered mental status. Patient was being checked on by home health when they thought he was less responsive than normal so they called EMS to bring the patient to the hospital for evaluation. Patient is sleepy but able to be aroused, he states he is just tired. He has no complaints of pain, states his left foot is sore but I have infection there so I expected to be sore . Patient was evaluated in Dr. Dunne's office for his left lower extremity cellulitis yesterday. Review of her notes demonstrates he was not feeling well yesterday and plan for care was to continue wound VAC and dressing changes twice weekly with home health care, continue taking Doxy and Zyvox as directed. Patient reports he has been compliant with this. He admits that he occasionally smokes THC including most recently yesterday. He denies cough, congestion, vomiting, diarrhea, chest pain, shortness of breath, abdominal pain, or other associated symptoms. Related Data Home Medications ?Medication ?Instructions ?Recorded ?Confirmed aspirin 81 mg tablet,delayed 81 mg PO DAILY 04/20/23 07/24/24 release furosemide 40 mg tablet 40 mg PO DAILY Fluid 04/20/23 07/24/24 lamotrigine 100 mg tablet 100 mg PO BID 04/20/23 07/24/24 lamotrigine 150 mg tablet 150 mg PO HS 04/21/23 07/24/24 atorvastatin 40 mg tablet 40 mg PO HS 03/03/24 07/24/24 pantoprazole 40 mg tablet,delayed 40 mg PO DAILY 03/03/24 07/24/24 release metoclopramide HCl 5 mg tablet 5 mg PO BIDWMEAL 03/27/24 07/24/24 baclofen 10 mg tablet 10 mg PO BIDP PRN Muscle Spasms 04/22/24 07/24/24 sennosides 8.6 mg-docusate sodium 1 tab PO BID 04/22/24 07/24/24 50 mg tablet (Stimulant Laxative Plus) cefdinir 300 mg capsule mg PO 06/05/24 07/24/24 terbinafine HCl 250 mg tablet mg PO 06/05/24 07/24/24 folic acid 400 mcg tablet 0.4 mg PO DAILY 06/20/24 07/24/24 Previous Rx's ?Medication ?Instructions ?Recorded clopidogrel 75 mg tablet (Plavix) 75 mg PO DAILY #30 tabs 06/08/23 metoprolol succinate 25 mg 25 mg PO DAILY #30 tabs 06/08/23 tablet,extended release 24 hr gabapentin 100 mg capsule 200 mg (2 x 100 mg) PO TID 30 days 04/01/24 #180 caps empagliflozin 10 mg tablet 10 mg PO DAILY 30 days #30 tabs 04/29/24 (Jardiance) insulin glargine 100 unit/mL (3 35 unit (0.35 mL) SQ HS 30 days #0 04/29/24 mL) subcutaneous pen (Lantus mL Solostar U-100 Insulin) sacubitril 24 mg-valsartan 26 mg 1 tab PO BID 30 days #60 tabs 04/29/24 tablet (Entresto) spironolactone 25 mg tablet 25 mg PO DAILY 30 days #30 tabs 04/29/24 ondansetron HCl 4 mg tablet 4 mg PO Q8H PRN nausea and 05/13/24 vomiting 4 days #12 tabs amiodarone 400 mg tablet See Rx Instructions .Route 06/14/24 .COMPLEX #180 tabs doxycycline hyclate 100 mg capsule 100 mg PO BID cellulitis 10 days 07/17/24 #20 caps linezolid 600 mg tablet 600 mg PO BID 10 days #20 tabs 07/17/24 Allergies Allergy/AdvReac Type Severity Reaction Status Date / Time hydrocodone (From LORTAB) Allergy Unknown NA-NAUSEA/V Verified 07/31/24 14:39 OMITING codeine Allergy Verified 07/31/24 14:39 levetiracetam (From Keppra) Allergy Verified 07/31/24 14:39 tramadol AdvReac Unknown Verified 07/31/24 14:39 allergy reaction PFSH PFS Disclaimer: The information contained in this section may have been updated after the patient was seen, as this information can be updated by other users. Medical History Seizure CAD in [place] artery Acute febrile illness Atrial flutter Bilateral cellulitis of lower leg Cellulitis Diabetes mellitus Dystrophia unguium Fatigue Fever Infestation by fly larvae Lymphedema of both lower extremities Malaise Obesity with body mass index (BMI) of 30.0 to 39.9 Peripheral vascular disease Renal insufficiency Spinal stenosis of cervical region Spinal stenosis of lumbar region Systemic inflammatory response syndrome (SIRS) Ulcers of both lower extremities Uncontrolled diabetes mellitus History of left heart catheterization (LHC) Surgical History History of amputation H/O Spinal surgery Family History Mother Breast cancer Family history of myocardial infarction Social History Smoking Status: Never smoker alcohol intake: never substance use type: marijuana current occupational status: retired and disabled Travel in the last 8 weeks: None household members: family caffeine: No Other Medical History Have you received the Flu Vaccine for this season: No Have you received the Pneumonia Vaccine: No ROS Obtained: Yes Systems reviewed as appropriate & no additional complaints except as documented ROS per HPI Physical Exam General General appearance: in no apparent distress Comment: Sleepy but able to be aroused Head Head exam: atraumatic and normocephalic Eye Eye exam: Present PERRL and EOMI ENT ENT exam: Present mucous membranes dry (Membranes dry with Polident throughout the mouth) Neck Neck exam: Present normal inspection and full ROM Chest Chest inspection: Present symmetric chest wall rise Respiratory Respiratory exam: Present normal lung sounds bilaterally; Absent respiratory distress, wheezes or stridor Cardiovascular Cardiovascular exam: Present regular rate and normal rhythm Abdominal Exam Abdominal exam: Present soft; Absent distention or tenderness Extremities Exam Extremities exam: Present full ROM, tenderness (Wounds on left lower extremity appears similar to yesterday's photos from Dr. dunne, wound vac appears appropriate on distal LLE), normal capillary refill and edema (Mild) Neurological Exam Neurological exam: Present oriented X3; Absent motor sensory deficit Expanded Neurological Exam Coma scale eye opening: To voice Coma scale motor response: Obeys commands Coma scale verbal response: Oriented Coma scale total: 14 Psychiatric Psychiatric exam: Present normal affect and normal mood Skin Skin exam: Present warm and dry Medical Decision Making Medical Records Medical records reviewed: Yes I reviewed the patient's medical records. Screening: Per USPSTF and CDC recommendations, given the prevalence of disease in our region, it is our hospital?s policy to screen for HIV and viral Hepatitis for all patients aged 18 and over and those with ongoing risk factors. MR Comment: See HPI Lex Inquiry Pt receiving controlled substance: No Vital Signs: 08/01/24 10:31 08/01/24 10:50 08/01/24 11:00 Temperature 98.1 F Temperature Source Oral Pulse Rate 75 74 Pulse Rate [Right] 75 Respiratory Rate 14 19 13 Blood Pressure 144/87 H 128/69 Blood Pressure [Right Arm] 128/109 H Blood Pressure Mean [Right Arm] 115 02 Sat by Pulse Oximetry 94 L 94 L 95 Oxygen Delivery Method Room Air Room Air Room Air 08/01/24 11:33 08/01/24 12:30 08/01/24 13:00 Temperature Temperature Source Pulse Rate 77 75 68 Pulse Rate [Right] Respiratory Rate 21 15 14 Blood Pressure 122/73 108/49 L 121/58 L Blood Pressure [Right Arm] Blood Pressure Mean [Right Arm] 02 Sat by Pulse Oximetry 96 96 94 L Oxygen Delivery Method Room Air Room Air Room Air 08/01/24 13:31 08/01/24 14:00 08/01/24 14:30 Temperature Temperature Source Pulse Rate 66 64 69 Pulse Rate [Right] Respiratory Rate 14 22 16 Blood Pressure 151/71 H 131/66 151/75 H Blood Pressure [Right Arm] Blood Pressure Mean [Right Arm] 02 Sat by Pulse Oximetry 96 96 97 Oxygen Delivery Method Room Air Room Air Room Air 08/01/24 15:00 Temperature Temperature Source Pulse Rate Pulse Rate [Right] Respiratory Rate 25 H Blood Pressure 145/77 H Blood Pressure [Right Arm] Blood Pressure Mean [Right Arm] 02 Sat by Pulse Oximetry Oxygen Delivery Method Room Air Lab Data Lab Results 08/01/24 10:34: WBC 10.3, RBC 4.02 L, Hgb 10.4 L, Hct 30.9 L, MCV 76.8 L, MCH 25.9 L, MCHC 33.8, RDW 18.1 H, Plt Count 198, MPV 8.3, Neut % (Auto) 67.6, Lymph % (Auto) 19.9, [place] % (Auto) 9.1, Eos % (Auto) 2.7, Baso % (Auto) 0.7, Neut # (Auto) 7.0, Lymph # (Auto) 2.1, [place] # (Auto) 0.9, Eos # (Auto) 0.3, Baso # (Auto) 0.1, Sodium 139, Potassium 4.2, Chloride 105, Carbon Dioxide 25, Anion Gap 13.2, BUN 27 H, Creatinine 1.20, Estimated Creat Clear 85, Estimated GFR 60, Est GFR ( Amer) 72, Glucose 123 H, Lactate 1.2, Calcium 8.9, Total Bilirubin 0.4, AST 39, ALT 41, Alkaline Phosphatase 146 H, Troponin I < 0.01, Total Protein 7.1, Albumin 3.7, Globulin 3.4 H, Albumin/Globulin Ratio 1.1, Plasma/Serum Alcohol < 10 08/01/24 12:20: Urine Opiates Screen Negative, Urine Methadone Screen Negative, Ur Barbituates Screen Negative, Ur Phencyclidine Scrn Negative, Ur Amphetamines Screen Negative, U Benzodiazepines Scrn Negative, Urine Cocaine Screen Negative, U Marijuana (THC) Screen Positive H 08/01/24 12:22: Urine Color Yellow, Urine Appearance Clear, Urine pH 6.0, Ur Specific [place] 1.025, Urine Protein Trace, Urine Glucose (UA) Negative, Urine Ketones Negative, Urine Blood 1+ A, Urine Nitrate Negative, Urine Bilirubin Negative, Urine Urobilinogen 0.2, Ur Leukocyte Esterase Trace, Urine RBC Occasional, Urine WBC Occasional, Ur Squamous Epith Cells Occasional, Urine Bacteria Trace 08/01/24 14:05: Troponin I < 0.01 08/01/24 10:34 08/01/24 10:34 Orders (Tests/Meds): ED MEDICATIONS Generic Name Dose Route Start Last Admin Trade Name Freq PRN Reason Stop Dose Admin Sodium Chloride 10 ml 08/01/24 10:52 Sodium Chloride 0.9% 10ml Vial IV 08/31/24 10:51 NEEDED PRN to Dilute Lorazepam inj Discontinued Medications Generic Name Dose Route Start Last Admin Trade Name Freq PRN Reason Stop Dose Admin Sodium Chloride 1,000 mls @ 999 mls/hr 08/01/24 12:11 08/01/24 12:17 Sod Chlor 0.9% 1000ml Bag IV 08/01/24 13:11 999 mls/hr .Q1H1M ONE Administration Lorazepam 1 mg 08/01/24 10:52 08/01/24 10:53 Lorazepam 2mg/Ml Vial IV 08/01/24 10:53 1 mg ONCE ONE Administration Lorazepam 1 mg 08/01/24 11:40 08/01/24 11:41 Lorazepam 2mg/Ml Vial IV 08/01/24 11:41 1 mg ONCE ONE Administration ORDERS Category Date Time Status CT head/brain wo con Stat Cat Scan 08/01/24 10:51 Completed CXR --portable [XR chest portable] Stat Exams 08/01/24 10:51 Completed CBC w/Auto Diff [Complete Blood Count Auto Diff] Stat Lab 08/01/24 10:34 Completed CMP [Comprehensive Metabolic Panel] Stat Lab 08/01/24 10:34 Completed Ethanol [Ethyl Alcohol] Stat Lab 08/01/24 10:34 Completed Lactic Acid Stat Lab 08/01/24 10:34 Completed Trop I [Troponin I] Stat Lab 08/01/24 10:34 Completed Troponin I Q3H Lab 08/01/24 14:05 Completed Troponin I Q3H Lab 08/01/24 17:00 Ordered UDS [Drug Screen,Urine] Stat Lab 08/01/24 12:20 Completed Urinalysis and Microscopic Stat Lab 08/01/24 12:22 Completed ECG Request Stat Y 08/01/24 10:51 Ordered Medical Decision Narrative: In summary, this 69-year-old male with comorbidities as described in HPI presents to the emergency department today with altered mental status. On initial evaluation patient is hemodynamically stable, afebrile, he requires loud voice, sometimes painful stimuli in order to arouse but then behaves appropriately following commands and is fully oriented, skin changes of left lower extremity appropriate considering his known history. Patient had an episode of tremors versus possible focal seizure in the upper extremities, he received Ativan for this but before Ativan was fully pushed, he had spontaneously stopped. He was oriented throughout but reported being unable to control the tremors. Differential diagnosis includes but is not limited to tremor, focal seizure, electrolyte abnormality, dehydration, I considered sepsis but patient does not meet criteria for this, I considered intracranial abnormality, kidney dysfunction, I considered cardiac abnormality though I have low suspicion for this, also considered UTI since patient has catheter., I also considered intoxication since patient admits to marijuana. Based on these concerns, I ordered serum labs and imaging though I have low suspicion for acute pathology. CT head personally interpreted does not demonstrate acute intracranial abnormality, chest x-ray personally interpreted does not demonstrate acute intrathoracic abnormality, see radiology reads for full interpretations. Labs are reassuring with no leukocytosis, anemia stable from prior, mild prerenal azotemia for which patient received IV fluids. He is also tolerating oral intake. Initial troponin undetectably low less than 0.01. UA negative for findings of infection. Patient was placed into ED observation at 1220 for serial troponins to rule out evolving [place] as well as to monitor his mental status. He remained stable. His mental status cleared. He still sleeps heavily but is able to be aroused, is a GCS 15 when awake, is tolerating oral intake. He is appropriate for discharge from a mental status standpoint. Repeat troponin undetectably low less than 0.01. He is asking to go home which I believe is appropriate at this time. Patient was given instructions on symptomatic management, follow up instructions, and return precautions for the emergency department. Patient indicated understanding and was discharged in stable condition. Total time in ED observation: 3 hours Critical Care Critical Care Time Critical Care Time: No
[2024-08-01 14:37] LABS: Troponin I < 0.01 ng/ml (0.00-0.034)
--- NOTE | 2024-08-01 19:31 | PC.NURSE ---
Pt transported home via stretcher by [facility]
--- NOTE | 2024-08-01 21:01 | PC.NURSE ---
#20 IV removed from right hand before patient discharged. IV site wrapped with coban.
--- NOTE | 2024-08-01 21:03 | PC.NURSE ---
One IV removed prior to patient dispo. However, family called to state a second IV was not removed and patients wound was not dressed. Patient was in my care for approx. 15 minutes before discharging home. I was told in report everything is done, he is waiting on ride. . Patient was alert and oriented when leaving. Patient did not state he had a wound that needed dressed, nor did he state that he had a second IV that needed removed. I did not see a second IV in the 15 minutes patient was in my care, nor was a second line charted as in place. I did not have orders to change or dress a wound on the patient. Patient vital signs stable, stated he had no questions about his discharge.
--- NOTE | 2024-08-01 21:43 | PC.NURSE ---
This RN and FRANCISCO JAVIER Kirby traveled to patient's house to remove an IV. IV discontinued-#20 LAC-catheter tip intact. Patient tolerated well.
== END 2024-08-01 19:37 | disposition home or self-care (01) ==
PROVIDERS: Emergency Medicine; Emergency Provider Student in an Organized Health Care Education/Training Program; PCP Internal Medicine Adolescent Medicine
DX: R41.82 Altered mental status, unspecified (principal); L03.116 Cellulitis of left lower limb
CPT/HCPCS: 70450; 71045; 80053; 80307; 80320; 81001; 83605; 84484; 85025; 93005; 96361; 96374; 96375; 99284; G0480; J2060; J7030

== ENCOUNTER 2024-08-07 16:40 | Outpatient (CLI) | payer MEDICARE, SELFPAY | END 2024-08-07 23:59 | disposition home or self-care (01) | LOC: LAB.DROPOF 08-08 08:39 | PROVIDERS: PCP Internal Medicine Adolescent Medicine; Visit Provider Nurse Practitioner | DX: L03.116 Cellulitis of left lower limb (principal); L97.309 Non-pressure chronic ulcer of unspecified ankle with unspecified severity; E08.621 Diabetes mellitus due to underlying condition with foot ulcer; L97.421 Non-pressure chronic ulcer of left heel and midfoot limited to breakdown of skin | CPT/HCPCS: 87070; 87077; 87186; 87205 ==

== ENCOUNTER 2024-08-25 11:20 | Emergency (ER) | payer MEDICARE, SELFPAY ==
[2024-08-25] VITALS (12 sets, daily range): BP systolic 133–175; BP diastolic 61–100; PULSE 59–82; RESP 16–18; TEMP 36.4–36.9; O2SAT 83–99; BMI 31.1
--- NOTE | 2024-08-25 12:16 | HMH.EDGENADL ---
Discharge Plan Disposition Patient Disposition: Home, Self-Care Condition: Fair Prescriptions Prescriptions: No Action cefdinir 300 mg capsule PO Patient Comments: take 1 cap(s) orally every 12 hours for 14 days terbinafine HCl 250 mg tablet PO Patient Comments: take 1 tab(s) orally once a day 14 days folic acid 400 mcg tablet 0.4 mg PO DAILY doxycycline hyclate 100 mg capsule 100 mg PO BID 10 Days Qty: 20 0RF linezolid 600 mg tablet 600 mg PO BID 10 Days Qty: 20 0RF amiodarone 400 mg tablet See Rx Instructions .ROUTE .COMPLEX Qty: 180 3RF Dose Instruction: TAKE ONE TABLET BY MOUTH TWICE DAILY FOR ONE MONTH Rx Instructions: TAKE ONE TABLET BY MOUTH TWICE DAILY FOR ONE MONTH levofloxacin 750 mg tablet 750 mg PO DAILY 14 Days Qty: 14 0RF metoprolol succinate 25 mg Tablet Extended Release 24 Hr 25 mg PO DAILY Qty: 30 0RF clopidogrel [Plavix] 75 mg tablet 75 mg PO DAILY Qty: 30 0RF metoclopramide HCl 5 mg tablet 5 mg PO BIDWMEAL Patient Comments: take 1 tab(s) orally 2 times a day before meal 30 days gabapentin 100 mg Capsule 200 mg PO TID 30 Days Qty: 180 0RF Jardiance 10 mg Tablet 10 mg PO DAILY 30 Days Qty: 30 0RF Entresto 24-26 mg Tablet 1 tab PO BID 30 Days Qty: 60 0RF spironolactone 25 mg Tablet 25 mg PO DAILY 30 Days Qty: 30 0RF insulin glargine [Lantus Solostar U-100 Insulin] 100 unit/mL (3 mL) insulin pen 35 unit SQ HS 30 Days Qty: 0 0RF ondansetron HCl 4 mg tablet 4 mg PO Q8H PRN (Reason: nausea and vomiting) 4 Days Qty: 12 0RF furosemide 40 mg tablet 40 mg PO DAILY Patient Comments: TAKE ONE TABLET BY MOUTH ONCE DAILY aspirin 81 mg tablet,delayed release (DR/EC) 81 mg PO DAILY lamotrigine 100 mg tablet 100 mg PO BID Patient Comments: TAKE ONE TABLET BY MOUTH TWICE DAILY lamotrigine 150 mg tablet 150 mg PO HS Patient Comments: TAKE ONE TABLET BY MOUTH AT BEDTIME Rx Instructions: 150mg by mouth nightly with the 100mg tablet for seizures pantoprazole 40 mg Tablet,Delayed Release (Dr/Ec) 40 mg PO DAILY atorvastatin 40 mg tablet 40 mg PO HS Patient Comments: TAKE ONE TABLET BY MOUTH ONCE DAILY sennosides-docusate sodium [Stimulant Laxative Plus] 8.6-50 mg tablet 1 tab PO BID Patient Comments: TAKE ONE TABLET BY MOUTH TWICE DAILY baclofen 10 mg tablet 10 mg PO BIDP PRN (Reason: Muscle Spasms) Patient Comments: take 1 tab(s) orally 2 times a day as needed for muscle spasms 30 days Referrals Follow up/Referrals: Provider,Referral, MD [Referring] - See instructions Clinical Impressions Clinical Impression: Diabetic foot infection, Cellulitis of left leg Print Language Print Language: Micronesian Discharge ED Provider: Alec Walker General Adult HPI <JOHNATHON Kruger - Last Filed: 08/25/24 14:33> General Chief complaint: Recheck/Abnormal Lab/Rx Stated complaint: iv antibotics Time Seen by Provider: 08/25/24 12:16 Mode of Arrival: EMS Source of Information: Patient and EMS Limitations: No Limitations Description of Symptoms (Recalled from ER Triage Doc. by RN): pt presents to ED for possible admission and IV ABX treatment. pt reports that he was at [facility] for appoitment with ID doctor. she told pt that he needed to be admitted for abx's. History of Present Illness HPI narrative: Patient presents for evaluation of a diabetic foot wound and cellulitis. Patient has a very complicated past medical history but in summary has a left lower extremity wound VAC in place after a transmetatarsal amputation by Dr. Faust. Dr. Faust has an excellent summary from her last office visit in the chart. Patient has had multiple wound cultures most recent of which was on 07 August from his mid calf that showed multidrug-resistant Klebsiella and Pseudomonas. He was referred to infectious disease who evaluated him today and sent him to the hospital for IV antibiotics. Patient has been offered a BKA multiple times starting approximately a year ago. Patient has thus far declined every offer. Patient also has been adamant about not wanting to be in a prison. Otherwise he denies any fever chills hemoptysis hematochezia melena nausea vomiting diarrhea. Related Data Home Medications ?Medication ?Instructions ?Recorded ?Confirmed aspirin 81 mg tablet,delayed 81 mg PO DAILY 04/20/23 08/21/24 release furosemide 40 mg tablet 40 mg PO DAILY Fluid 04/20/23 08/21/24 lamotrigine 100 mg tablet 100 mg PO BID 04/20/23 08/21/24 lamotrigine 150 mg tablet 150 mg PO HS 04/21/23 08/21/24 atorvastatin 40 mg tablet 40 mg PO HS 03/03/24 08/21/24 pantoprazole 40 mg tablet,delayed 40 mg PO DAILY 03/03/24 08/21/24 release metoclopramide HCl 5 mg tablet 5 mg PO BIDWMEAL 03/27/24 08/21/24 baclofen 10 mg tablet 10 mg PO BIDP PRN Muscle Spasms 04/22/24 08/21/24 sennosides 8.6 mg-docusate sodium 1 tab PO BID 04/22/24 08/21/24 50 mg tablet (Stimulant Laxative Plus) cefdinir 300 mg capsule mg PO 06/05/24 08/21/24 terbinafine HCl 250 mg tablet mg PO 06/05/24 08/21/24 folic acid 400 mcg tablet 0.4 mg PO DAILY 06/20/24 08/21/24 Previous Rx's ?Medication ?Instructions ?Recorded clopidogrel 75 mg tablet (Plavix) 75 mg PO DAILY #30 tabs 06/08/23 metoprolol succinate 25 mg 25 mg PO DAILY #30 tabs 06/08/23 tablet,extended release 24 hr gabapentin 100 mg capsule 200 mg (2 x 100 mg) PO TID 30 days 04/01/24 #180 caps empagliflozin 10 mg tablet 10 mg PO DAILY 30 days #30 tabs 04/29/24 (Jardiance) insulin glargine 100 unit/mL (3 35 unit (0.35 mL) SQ HS 30 days #0 04/29/24 mL) subcutaneous pen (Lantus mL Solostar U-100 Insulin) sacubitril 24 mg-valsartan 26 mg 1 tab PO BID 30 days #60 tabs 04/29/24 tablet (Entresto) spironolactone 25 mg tablet 25 mg PO DAILY 30 days #30 tabs 04/29/24 ondansetron HCl 4 mg tablet 4 mg PO Q8H PRN nausea and 05/13/24 vomiting 4 days #12 tabs amiodarone 400 mg tablet See Rx Instructions .Route 06/14/24 .COMPLEX #180 tabs doxycycline hyclate 100 mg capsule 100 mg PO BID cellulitis 10 days 07/17/24 #20 caps linezolid 600 mg tablet 600 mg PO BID 10 days #20 tabs 07/17/24 levofloxacin 750 mg tablet 750 mg PO DAILY 14 days #14 tabs 08/13/24 Allergies Allergy/AdvReac Type Severity Reaction Status Date / Time hydrocodone (From LORTAB) Allergy Unknown NA-NAUSEA/V Verified 08/21/24 14:14 OMITING codeine Allergy Verified 08/21/24 14:14 levetiracetam (From Keppra) Allergy Verified 08/21/24 14:14 tramadol AdvReac Unknown Verified 08/21/24 14:14 allergy reaction [facility] <JOHNATHON Kruger - Last Filed: 08/25/24 14:33> [facility] Disclaimer: The information contained in this section may have been updated after the patient was seen, as this information can be updated by other users. Medical History Seizure CAD in [place] artery Acute febrile illness Atrial flutter Bilateral cellulitis of lower leg Cellulitis Diabetes mellitus Dystrophia unguium Fatigue Fever Infestation by fly larvae Lymphedema of both lower extremities Malaise Obesity with body mass index (BMI) of 30.0 to 39.9 Peripheral vascular disease Renal insufficiency Spinal stenosis of cervical region Spinal stenosis of lumbar region Systemic inflammatory response syndrome (SIRS) Ulcers of both lower extremities Uncontrolled diabetes mellitus History of left heart catheterization (LHC) Surgical History History of amputation H/O Spinal surgery Family History Mother Breast cancer Family history of myocardial infarction Social History Smoking Status: Never smoker alcohol intake: never substance use type: marijuana current occupational status: retired and disabled Travel in the last 8 weeks: None household members: family caffeine: No Have you lived/traveled outside US in past 30 days?: No Contact w/someone who lives/traveled outside US past 30 days?: No Exposure to someone with infectious disease in past 14 days?: No Do you have a fever (greater than 100.4 F or 38 C)?: No Have you tested positive for COVID-19: No Exposed to someone with COVID-19 in past 14 days?: No Do you have a sore throat?: No Do you have a cough?: No Do you have any weakness?: No Do you have any diarrhea?: No Are you experiencing any unusual bleeding?: No Do you have any muscle aches/pain?: No Do you have any abdominal pain?: No Are you experiencing loss of taste or smell?: No Other Medical History Have you received the Flu Vaccine for this season: No Have you received the Pneumonia Vaccine: No <JOHNATHON Kruger - Last Filed: 08/25/24 14:33> ROS Obtained: Yes Systems reviewed as appropriate & no additional complaints except as documented Physical Exam <JOHNTAHON Kruger - Last Filed: 08/25/24 14:33> General General appearance: alert and in no apparent distress Neck Neck exam: Present lymphadenopathy Respiratory Respiratory exam: Present normal lung sounds bilaterally Cardiovascular Cardiovascular exam: Present regular rate Neurological Exam Neurological exam: Present alert and oriented X3 Medical Decision Making <JOHNATHON Kruger - Last Filed: 08/25/24 14:33> Medical Records Medical records reviewed: Yes I reviewed the patient's medical records. Screening: Per USPSTF and CDC recommendations, given the prevalence of disease in our region, it is our hospital?s policy to screen for HIV and viral Hepatitis for all patients aged 18 and over and those with ongoing risk factors. Lex Inquiry Pt receiving controlled substance: No Vital Signs: 08/25/24 11:20 08/25/24 11:24 08/25/24 11:30 Temperature 97.6 F Temperature Source Oral Pulse Rate 81 82 Pulse Rate [Left Radial] 73 Respiratory Rate 16 Blood Pressure 162/100 H 133/69 Blood Pressure [Right Arm] 162/100 H Blood Pressure Mean 96 Blood Pressure Mean [Right Arm] 120 02 Sat by Pulse Oximetry 97 97 98 Oxygen Delivery Method Room Air Room Air Room Air 08/25/24 13:51 08/25/24 13:56 08/25/24 14:00 Temperature Temperature Source Pulse Rate 80 61 Pulse Rate [Left Radial] Respiratory Rate 16 Blood Pressure 153/61 H Blood Pressure [Right Arm] Blood Pressure Mean Blood Pressure Mean [Right Arm] 02 Sat by Pulse Oximetry 98 93 L Oxygen Delivery Method Room Air 08/25/24 14:01 Temperature Temperature Source Pulse Rate 59 L Pulse Rate [Left Radial] Respiratory Rate Blood Pressure 155/90 H Blood Pressure [Right Arm] Blood Pressure Mean Blood Pressure Mean [Right Arm] 02 Sat by Pulse Oximetry 83 L Oxygen Delivery Method Lab Data Lab results reviewed: Yes I reviewed the patient's lab results. Lab Results 08/25/24 11:55: WBC 8.8, RBC 4.23 L, Hgb 10.9 L, Hct 33.5 L, MCV 79.3 L, MCH 25.7 L, MCHC 32.4, RDW 18.2 H, Plt Count 266, MPV 7.8, Neut % (Auto) 79.2, Lymph % (Auto) 10.1, Green % (Auto) 6.5, Eos % (Auto) 3.5, Baso % (Auto) 0.7, Neut # (Auto) 6.9, Lymph # (Auto) 0.9, Green # (Auto) 0.6, Eos # (Auto) 0.3, Baso # (Auto) 0.1, Sodium 138, Potassium 4.0, Chloride 108 H, Carbon Dioxide 26, Anion Gap 8.0, BUN 22 H, Creatinine 0.80, Estimated Creat Clear 101, Estimated GFR 96, Est GFR ( Amer) 116, Glucose 210 H, Calcium 8.8, Total Bilirubin 0.3, AST 31, ALT 35, Alkaline Phosphatase 154 H, Total Protein 6.9, Albumin 3.6, Globulin 3.3 H, Albumin/Globulin Ratio 1.1 08/25/24 11:55 08/25/24 11:55 Orders (Tests/Meds): ED MEDICATIONS Generic Name Dose Route Start Last Admin Trade Name Freq PRN Reason Stop Dose Admin Sodium Chloride 10 ml 08/25/24 12:01 Sodium Chloride 0.9% 10ml Flush Syringe IV 09/24/24 12:00 NEEDED PRN Maintain IV Site Discontinued Medications Generic Name Dose Route Start Last Admin Trade Name Freq PRN Reason Stop Dose Admin Vancomycin/PEG/NADA/Lysine/Water 1.75 gm in 350 mls @ 175 mls/hr 08/25/24 12:45 08/25/24 13:43 Vancomycin 1.75gm/350ml (Peg) Premix IV 08/25/24 14:44 175 mls/hr ONCE ONE Administration Miscellaneous 1 each 08/25/24 12:30 08/25/24 13:52 Vancomycin Consult Request NOTAPPLIC 09/24/24 12:29 1 each CONSULT PHARMACY DEEPTI Administration ORDERS Category Date Time Status Consult to Hospice [CONS] Routine Cons 08/25/24 14:10 Active CBC w/Auto Diff [Complete Blood Count Auto Diff] Stat Lab 08/25/24 11:55 Completed CMP [Comprehensive Metabolic Panel] Stat Lab 08/25/24 11:55 Completed HIV Combo Stat Lab 08/25/24 11:55 Received Hep C Ab with Reflex to RNA Stat Lab 08/25/24 11:55 Received Medical Decision Narrative: In summary patient is a 69-year-old male who presents to the emergency department for evaluation of chronic osteomyelitis and cellulitis. Patient is initially hypertensive at 162/100 but with a pulse of 73 respiratory rate 16 satting at 97% on room air upon arrival, afebrile at 97.6. Physical exam shows erythema and edema of the left lower extremity. Wound VAC is in place and I did not take it down erythema is progressing proximally just below the level of the knee joint. Patient has scaling of the superficial skin however the skin around the wound VAC is taut and shiny. Differential diagnosis includes cellulitis versus abscess versus osteomyelitis etc. Initial workup will be conducted with hematologic labs and MRI. Initial interventions were considered however patient has no other initial complaints and therefore deferred for now. While initial workup was pending I had an interactive discussion with Radha Will of infectious disease, Dr. Faust of podiatry, and Dr. Coto of [facility]. All of us discussed patient management and the individual conversations. Ultimately the consensus is is that the patient has achieved maximal medical benefit that he will allow us to give. Patient is still adamant that he will not consider any form of amputation other than what is already been done, he is adamant that he will not go to a prison even for short period of time which limits all of his choices. Given that I had an interactive discussion with the patient regarding the findings and given the patient directed decision making he is not a candidate for any further aggressive care. Patient has been offered hospice in the past and I again revisited that discussion with the patient and today he is agreeable to pursue hospice care instead of any further medical management. Given that I have placed a hospice consult and disposition will be to his home in the care of hospice <Alec Walker MD - Last Filed: 08/25/24 15:40> Vital Signs: 08/25/24 11:20 08/25/24 11:24 08/25/24 11:30 Temperature 97.6 F Temperature Source Oral Pulse Rate 81 82 Pulse Rate [Left Radial] 73 Respiratory Rate 16 Blood Pressure 162/100 H 133/69 Blood Pressure [Right Arm] 162/100 H Blood Pressure Mean 96 Blood Pressure Mean [Right Arm] 120 02 Sat by Pulse Oximetry 97 97 98 Oxygen Delivery Method Room Air Room Air Room Air 08/25/24 13:51 08/25/24 13:56 08/25/24 14:00 Temperature Temperature Source Pulse Rate 80 61 Pulse Rate [Left Radial] Respiratory Rate 16 Blood Pressure 153/61 H Blood Pressure [Right Arm] Blood Pressure Mean Blood Pressure Mean [Right Arm] 02 Sat by Pulse Oximetry 98 93 L Oxygen Delivery Method Room Air 08/25/24 14:01 Temperature Temperature Source Pulse Rate 59 L Pulse Rate [Left Radial] Respiratory Rate Blood Pressure 155/90 H Blood Pressure [Right Arm] Blood Pressure Mean Blood Pressure Mean [Right Arm] 02 Sat by Pulse Oximetry 83 L Oxygen Delivery Method Lab Data Lab Results 08/25/24 11:55: WBC 8.8, RBC 4.23 L, Hgb 10.9 L, Hct 33.5 L, MCV 79.3 L, MCH 25.7 L, MCHC 32.4, RDW 18.2 H, Plt Count 266, MPV 7.8, Neut % (Auto) 79.2, Lymph % (Auto) 10.1, Green % (Auto) 6.5, Eos % (Auto) 3.5, Baso % (Auto) 0.7, Neut # (Auto) 6.9, Lymph # (Auto) 0.9, Green # (Auto) 0.6, Eos # (Auto) 0.3, Baso # (Auto) 0.1, Sodium 138, Potassium 4.0, Chloride 108 H, Carbon Dioxide 26, Anion Gap 8.0, BUN 22 H, Creatinine 0.80, Estimated Creat Clear 101, Estimated GFR 96, Est GFR ( Amer) 116, Glucose 210 H, Calcium 8.8, Total Bilirubin 0.3, AST 31, ALT 35, Alkaline Phosphatase 154 H, Total Protein 6.9, Albumin 3.6, Globulin 3.3 H, Albumin/Globulin Ratio 1.1 Orders (Tests/Meds): ED MEDICATIONS Generic Name Dose Route Start Last Admin Trade Name Ciara PRN Reason Stop Dose Admin Sodium Chloride 10 ml 08/25/24 12:01 Sodium Chloride 0.9% 10ml Flush Syringe IV 09/24/24 12:00 NEEDED PRN Maintain IV Site Discontinued Medications Generic Name Dose Route Start Last Admin Trade Name Freq PRN Reason Stop Dose Admin Vancomycin/PEG/NADA/Lysine/Water 1.75 gm in 350 mls @ 175 mls/hr 08/25/24 12:45 08/25/24 13:43 Vancomycin 1.75gm/350ml (Peg) Premix IV 08/25/24 14:44 175 mls/hr ONCE ONE Administration Miscellaneous 1 each 08/25/24 12:30 08/25/24 13:52 Vancomycin Consult Request NOTAPPLIC 09/24/24 12:29 1 each CONSULT PHARMACY DEEPTI Administration ORDERS Category Date Time Status Consult to Hospice [CONS] Routine Cons 08/25/24 14:10 Active CBC w/Auto Diff [Complete Blood Count Auto Diff] Stat Lab 08/25/24 11:55 Completed CMP [Comprehensive Metabolic Panel] Stat Lab 08/25/24 11:55 Completed HIV Combo Stat Lab 08/25/24 11:55 Received Hep C Ab with Reflex to RNA Stat Lab 08/25/24 11:55 Received Medical Decision Narrative: In summary patient is a 69-year-old male who presents to the emergency department for evaluation of chronic osteomyelitis and cellulitis. Patient is initially hypertensive at 162/100 but with a pulse of 73 respiratory rate 16 satting at 97% on room air upon arrival, afebrile at 97.6. Physical exam shows erythema and edema of the left lower extremity. Wound VAC is in place and I did not take it down erythema is progressing proximally just below the level of the knee joint. Patient has scaling of the superficial skin however the skin around the wound VAC is taut and shiny. Differential diagnosis includes cellulitis versus abscess versus osteomyelitis etc. Initial workup will be conducted with hematologic labs and MRI. Initial interventions were considered however patient has no other initial complaints and therefore deferred for now. While initial workup was pending I had an interactive discussion with Radha Will of infectious disease, Dr. Faust of podiatry, and Dr. Coto of hospital medicine. All of us discussed patient management and the individual conversations. Ultimately the consensus is is that the patient has achieved maximal medical benefit that he will allow us to give. Patient is still adamant that he will not consider any form of amputation other than what is already been done, he is adamant that he will not go to a prison even for short period of time which limits all of his choices. Given that I had an interactive discussion with the patient regarding the findings and given the patient directed decision making he is not a candidate for any further aggressive care. Patient has been offered hospice in the past and I again revisited that discussion with the patient and today he is agreeable to pursue hospice care instead of any further medical management. Given that I have placed a hospice consult and disposition will be to his home in the care of hospice I was consulted by the VARUN, and we discussed the complexity of the problems being addressed. I approve the treatment and management plan for this patient's care in the emergency department, thus performing a substantive portion of the medical decision making. Alec Walker MD Critical Care <JOHNATHON Kruger - Last Filed: 08/25/24 14:33> Critical Care Time Critical Care Time: No
--- NOTE | 2024-08-25 12:31 | MR_ITS ---
FINAL REPORT CLINICAL HISTORY: MDR infection, osteo COMPARISON: None FINDINGS: Multiplanar MR imaging of the left foot was performed without contrast. The patient is postoperative amputation of the left forefoot at the level of the distal metatarsals. There is no evidence of marrow replacement to suggest active osteomyelitis. There is widespread soft tissue edema or cellulitis. There is a presumed soft tissue ulcer in the distal stump. The flexor and extensor tendons are intact. No ligamentous injury is identified. The musculature is intact. There is posterior plantar fasciitis with a small intrasubstance tear. There is a 16 mm fluid collection in the lateral heel pad versus focal subcutaneous edema. IMPRESSION: Prior amputation of the forefoot at the distal metatarsal level. There is no evidence of marrow replacement to suggest osteomyelitis. 16 mm fluid collection in the lateral heel pad versus focal subcutaneous edema. Posterior plantar fasciitis with small intrasubstance tear. Reviewed, Interpreted and Dictated by Earnest Mancilla III, MD Transcribed by Latha Cunha Authenticated and [facility]
--- NOTE | 2024-08-25 12:32 | PC.NURSE ---
Dav Garza PAC would like to order MR of L foot. I s/w Chinyere in MRI, and she has time now. I called Care Management, s/w Nicole and she states it is ok to proceed with MRI. Chinyere notified of this
[2024-08-25 12:35] LABS: Albumin Level 3.6 g/dl (3.5-5.0); Basophils # 0.1 K/mm3 (0-0.2); Basophils % 0.7 % (0.1-2.0); Chloride 108 mmol/L (98-107); Eosinophils # 0.3 K/mm3 (0.0-0.4); Eosinophils % 3.5 % (0.1-12.0); Hematocrit 33.5 % (42.0-52.0); Hemoglobin 10.9 g/dL (14.1-18.0); Lymphocytes # 0.9 K/mm3 (0.7-4.5); Lymphocytes % 10.1 % (10-50); Mean Corpuscular HGB Conc 32.4 g/dL (31.8-35.4); Mean Corpuscular Hemoglobin 25.7 pg (27.0-31.2); Mean Corpuscular Volume 79.3 fl (80-94); Mean Platelet Volume 7.8 fl (7.4-10.4); Monocytes # 0.6 K/mm3 (0.1-1.0); Monocytes % 6.5 % (1.7-9.3); Neutrophils # 6.9 K/mm3 (1.8-7.8); Neutrophils % 79.2 % (37.0-80.0); Platelet Count 266 K/mm3 (142-424); Red Blood Count 4.23 M/mm3 (4.60-6.20); Red Cell Distribution Width 18.2 % (11.5-17.5); Sodium 138 mmol/L (136-145); White Blood Count 8.8 K/mm3 (4.8-10.8)
--- NOTE | 2024-08-25 12:35 | PC.NURSE ---
Pt to MRI via strecher with MRI staff
[2024-08-25 12:38] LABS: Alanine Aminotransferase 35 U/L (12-78); Albumin/Globulin Ratio 1.1 (1.1-1.8); Alkaline Phosphatase 154 U/L (38-126); Aspartate Amino Transferase 31 U/L (17-59); Bilirubin,Total 0.3 mg/dl (0.2-1.3); Blood Urea Nitrogen 22 mg/dl (9-20); Carbon Dioxide 26 mmol/L (22.0-30.0); Creatinine Clearance Estimated 101 mL/min (50-200); Estimated Glomerular Filt Rate 96 ml/min (>60); GFR (African American) 116 ML/MIN (>60); Globulin 3.3 g/dL (1.3-3.2); Total Protein,Serum 6.9 g/dl (6.3-8.2)
[2024-08-25 12:39] LABS: Calcium 8.8 mg/dl (8.4-10.2); Glucose 210 mg/dl (74-100)
--- NOTE | 2024-08-25 13:41 | PC.NURSE ---
PT RETURNED FROM MRI
[2024-08-25] MEDS: VANCOMYCIN/WATER FOR INJ (PEG) 1.75 GM/350 ML PIGGYBACK IV (13:43)
[2024-08-25] MEDS: VANCOMYCIN CONSULT REQUEST 1 EACH NOTAPPLIC (13:52)
--- NOTE | 2024-08-25 14:11 | PC.NURSE ---
TRN spoke with Amanda at [facility]. she needs paperwork faxed to help with the intake. she will get information over to correct person and they will be in contact.
--- NOTE | 2024-08-25 14:40 | PC.NURSE ---
abelardo from hospice called back to get more information about pt. information given for pt chart. abelardo states that she will come up here and speak with pt.
--- NOTE | 2024-08-25 15:07 | SW/DCPLANNER ---
Addendum entered by Bethany Campuzano 08/25/24 16:01: Dulce mcgraw/ [facility] at bedside to evaluate patient. Patient is no longer interested in Hospice services but did take their contact information for once he is ready. Dr Coto and myself explained to patient the importance for Hospice services at home due to IV antibiotics not helping and the amount of resources that could be provided at home. Patient continues to deny services at this time. I will follow up w/ Sapna at [facility] the first of next week. Original Note: Sapna from Hospice will be at patients bedside soon in the ED. Elida Rios
--- NOTE | 2024-08-25 15:15 | PC.NURSE ---
HOSPICE AT BEDSIDE
--- NOTE | 2024-08-25 15:26 | PC.NURSE ---
hospice nurse and social work at bedside
[2024-08-25 16:50] LABS: HIV Combo NEGATIVE (Negative)
[2024-08-26 06:13] LABS: HCV Ab Non Reactive (Non Reactive)
== END 2024-08-25 17:08 | disposition home or self-care (01) ==
PROVIDERS: Physician Assistant; Emergency Provider Student in an Organized Health Care Education/Training Program; PCP Internal Medicine Adolescent Medicine
DX: E11.628 Type 2 diabetes mellitus with other skin complications (principal); L03.116 Cellulitis of left lower limb
CPT/HCPCS: 73718; 80053; 85025; 86803; 87389; 96365; 96366; 99283; J3372

== ENCOUNTER 2025-03-15 11:15 | Outpatient (CLI) | payer MEDICARE, SELFPAY ==
--- OUTSIDE RECORDS SUMMARY | 2025-03-15 11:17 | XMS_ITS | Continuity of Care Document ---
Author Organization [facility]. If a dditional information is needed, contact Health Information Management at [phone] [address] [place] [address] Phone Care Team Providers Care Key Maker Name Role Phone Unavailable Unavailable Unavailable Unavailable Unavailable Unavailable Unavailable Unavailable Unavailable Unavailable Unavailable Unavailable Problems Status epilepticus Onset:20-Apr-2022 Manuela Castro MD Status:Acute Traumatic brain injury Onset:20-Apr-2022 Manuela Castro MD Status:Acute Seizure Onset:20-Apr-2022 Manuela Castro MD Status:Acute Hypertensive disorder Onset:20-Apr-2022 Manuela Castro MD Status:Acute Gastroesophageal reflux dise ase Onset:20-Apr-2022 Manuela Castro MD Status:Acute Pressure injury Onset:20-Apr-2022 Manuela Castro MD Status:Acute History of amputation of rig ht leg through femur Onset:20-Apr-2022 Manuela Castro MD Status:Acute Allergies and Adverse Reactions Codeine(Allergy) Onset: 20-Apr-2022 Reaction:Unknown Hydrocodone(Allergy) Onset: 20-Apr-2022 Reaction:Unknown acetaminophen(Allergy) Onset: 20-Apr-2022 Reaction:Unknown bupropion(Allergy) Onset: 20-Apr-2022 Reaction:Unknown ketorolac(Allergy) Onset: 20-Apr-2022 Reaction:Unknown Medications busPIRone Start:20-Apr-2022 atorvastatin Start:20-Apr-2022
--- OUTSIDE RECORDS SUMMARY | 2025-03-15 11:18 | XMS_ITS | Encounter Summary ---
Author Organization [employer] ([place], [place], [place], [place]) Address [address] [place] [address] Care Team Providers Care Pharmacy Associate Name Role Phone Unavailable Primary Care Provider Unavailabl e Encounter Details Date Type Department Care Team (Late st Contact Info) Description 12/24/2021 Transcribed Document [facility] [place] Family Medicine [address] [place] [address] ProviderDario MD [address], [place] [id number] Social History Tobacco Use Types Packs/Day Years Used Date Smoking Tobacco: Never Assessed Sex and Gender Information Value Date Recorded Sex Assigned at Not on file Legal Sex Male 5:38 PM CDT Gender Identity Not on file Sexual Orientation Not on file documented as of this encounter Miscellaneous Notes * Cerner Conversion Note - Historical ProviderMD - 12/24/2021 3:16 PM CDT ED Event Note Entered On: 12/24/2021 15:17 EDT Performed On: 12/24/2021 15:16 EDT by Juani Torrez [facility] Juice Scaleman ED Event Note ED Event Date/Time : 12/24/2021 14:58 EDT ED Description of Event : Dr. South administrative library assistant aware of the patient Juani [facility]rez [facility] Juice Scaleman - 12/24/2021 15:16 EDT documented in this encounter Plan of Treatment Not on file documented as of this encounter Visit Diagnoses Not on filedocumented in this encounter
--- OUTSIDE RECORDS SUMMARY | 2025-03-15 11:18 | XMS_ITS | Encounter Summary ---
Author Organization [employer] ([place], [place], [place], [place]) Address [address] [place] [address] Care Team Providers Care Health Care Analyst Name Role Phone Unavailable Primary Care Provider Unavailabl e Encounter Details Date Type Department Care Team (Late st Contact Info) Description 12/24/2021 Transcribed Document [facility] [place] Family Medicine Counts include 234 beds at the [facility] [place] [address] ProviderDario MD [address], [place] [id number] Social History Tobacco Use Types Packs/Day Years Used Date Smoking Tobacco: Never Assessed Sex and Gender Information Value Date Recorded Sex Assigned at Not on file Legal Sex Male 5:38 PM CDT Gender Identity Not on file Sexual Orientation Not on file documented as of this encounter Miscellaneous Notes * Cerner Conversion Note - Historical ProviderMD - 12/24/2021 1:45 PM CDT ED Assessment Entered On: 12/24/2021 14:35 EDT Performed On: 12/24/2021 13:45 EDT by HERNANDEZ FALCON RN ED Quick Look Assessment Level of Consciousness : Alert, Drowsy Affect/Behavior : Appropriate, Calm, Cooperative Orientation : Oriented x 4 Skin Color : Other: normal Skin Temperature : Warm Skin Description : Dry HERNANDEZ FALCON RN - 12/24/2021 14:24 EDT ED General-Functional Assess Information Obtained From : Patient, Other: caregiver Communication Barrier : None Primary Language : Hungarian Any Spiritual/Cultural Needs or Requests : No Currently in Unsafe Situation : No HERNANDEZ FALCON RN - 12/24/2021 14:24 EDT Social Habits Smoking Status : Former smoker, quit more than 30 days ago Smokeless Tobacco Status : Never Desires Tobacco Cessation Calc : 0 HERNANDEZ FALCON RN - 12/24/2021 14:24 EDT Social History (As Of: 12/24/2021 14:35:38 EDT) Tobacco: Use in Last 12 Months: No. Smoking Status Former smoker. Last Used: quit 2005. (Last Updated: 01/15/2016 08:21:55 EDT by Alondra Hughes, RN) Alcohol: Alcohol Use History No. (Last Updated: 01/15/2016 08:21:59 EDT by Alondra Hughes, RN) Substance Abuse: Drug Use Hx: No. (Last Updated: 01/15/2016 08:22:03 EDT by Alondra Hughes, RN) Cardiovascular ASMT, ED Cardiovascular Assessment WDL : WDL with exceptions (Comment: pt has a HR above 100, occasional PVC's [HERNANDEZ FALCON RN - 12/24/2021 14:24 EDT] ) HERNANDEZ FALCON RN - 12/24/2021 14:24 EDT Respiratory Respiratory Assessment WDL : WDL HERNANDEZ FALCON RN - 12/24/2021 14:24 EDT Oxygen Therapy Oxygen Therapy Mode : Room air HERNANDEZ FALCON RN - 12/24/2021 14:24 EDT Gastrointestinal ED Gastrointestinal Assessment WDL : WDL HERNANDEZ FALCON RN - 12/24/2021 14:24 EDT Integumentary Assessment Integumentary Assessment WDL : WDL with exceptions (Comment: pt has a pressure ulcer on his tailbone, will evaluate further [HERNANDEZ FALCON RN - 12/24/2021 14:24 EDT] ) HERNANDEZ FALCON RN - 12/24/2021 14:24 EDT Neurologic ASMT, ED Neurologic Assessment WDL : WDL with exceptions (Comment: pt is a direct admit from [facility] due to new onset seizures, pt does not have hx, has been having seizures for the past 2 days lasting longer than 10mins, pt currently having a seizure in triage, lasting >5mins at this time. [HERNANDEZ FALCON RN - 12/24/2021 14:24 EDT] ) HERNANDEZ FALCON RN - 12/24/2021 14:24 EDT Pain Assessment Pain Assessment : Initial assessment Pain Scale Used : FACES HERNANDEZ FALCON RN - 12/24/2021 14:24 EDT Pain Scale Intensity : 4 HERNANDEZ FALCON, JESSEE - 12/24/2021 14:24 EDT Image 4 - Images currently included in the form version of this document have not been included in the text rendition version of the form. documented in this encounter Plan of Treatment Not on file documented as of this encounter Visit Diagnoses Not on filedocumented in this encounter
--- OUTSIDE RECORDS SUMMARY | 2025-03-15 11:18 | XMS_ITS | Encounter Summary ---
Author Organization [employer] ([place], [place], [place]) Address [address] [place] [address] Care Team Providers Care Round Corner Cutter Operator Name Role Phone Unavailable Primary Care Provider Unavailabl e Encounter Details Date Type Department Care Team (Late st Contact Info) Description 12/24/2021 Transcribed Document [facility] [place] [address] [place] [address] ProviderDario MD [address] [place], [place] [phone] Social History Tobacco Use Types Packs/Day Years Used Date Smoking Tobacco: Never Assessed Sex and Gender Information Value Date Recorded Sex Assigned at Not on file Legal Sex Male 5:38 PM CDT Gender Identity Not on file Sexual Orientation Not on file documented as of this encounter Miscellaneous Notes * Cerner Conversion Note - Historical ProviderMD - 12/24/2021 8:39 PM CDT ED Event Note Entered On: 12/24/2021 20:40 EDT Performed On: 12/24/2021 20:39 EDT by Bethany Gunn RN-PATIENT CARE BEDSIDE NON-EXEMPT ED Event Note ED Event Date/Time : 12/24/2021 20:39 EDT ED Description of Event : Patient had seizure-like activity noticed by RN around 2030 and ending around 2037 after administration of lorazepam at 2032. Patient was not responsive to voice or repeated stimulation and was repeatedly hitting his hands on the bed. Bethany Gunn RN-PATIENT CARE BEDSIDE NON-EXEMPT - 12/24/2021 20:39 EDT documented in this encounter Plan of Treatment Not on file documented as of this encounter Visit Diagnoses Not on filedocumented in this encounter
--- OUTSIDE RECORDS SUMMARY | 2025-03-15 11:18 | XMS_ITS | Encounter Summary ---
Author Organization [employer] ([place], [place], [place], [place]) Address [address] [place] [address] Care Team Providers Care Rail Layer Name Role Phone Unavailable Primary Care Provider Unavailabl e Encounter Details Date Type Department Care Team (Late st Contact Info) Description 12/24/2021 Transcribed Document [facility] [place] [address] [place] [address] ProviderDario MD [address], [place] [phone] Social History Tobacco Use Types Packs/Day Years Used Date Smoking Tobacco: Never Assessed Sex and Gender Information Value Date Recorded Sex Assigned at Not on file Legal Sex Male 5:38 PM CDT Gender Identity Not on file Sexual Orientation Not on file documented as of this encounter Miscellaneous Notes * Cerner Conversion Note - Historical ProviderMD - 12/24/2021 3:29 PM CDT Consult Phone Call Documentation Entered On: 12/26/2021 4:25 EDT Performed On: 12/24/2021 15:29 EDT [address] [facility] Phone Call for Consults Consult Reason : roselia has seen patient MERLYN OWENS [facility] - 12/26/2021 4:23 EDT documented in this encounter Plan of Treatment Not on file documented as of this encounter Visit Diagnoses Not on filedocumented in this encounter
--- OUTSIDE RECORDS SUMMARY | 2025-03-15 11:18 | XMS_ITS | Encounter Summary ---
Author Organization [employer] ([place], [place], [place], [place]) Address [address] [place] [address] Care Team Providers Care Undertaker Helper Name Role Phone Unavailable Primary Care Provider Unavailabl e Encounter Details Date Type Department Care Team (Late st Contact Info) Description 12/31/2021 Transcribed Document [facility] [place] Medicine [address] [place] [address] ProviderDario MD [address] [place], [place] [phone] Social History Tobacco Use Types Packs/Day Years Used Date Smoking Tobacco: Never Assessed Sex and Gender Information Value Date Recorded Sex Assigned at Not on file Legal Sex Male 5:38 PM CDT Gender Identity Not on file Sexual Orientation Not on file documented as of this encounter Miscellaneous Notes * Cerner Conversion Note - Historical ProviderMD - 12/31/2021 2:00 AM CDT Human Resources Training Manager Details Entered On: 12/31/2021 2:31 EDT Performed On: 12/31/2021 2:00 EDT by Nikki Farley Non Emp RN Order Details Transport Mode Order Detail : Wheelchair Isolation Precautions Order Detail : Standard Precautions Order Detail : N/A IV Order Detail : 1 Oxygen Order Detail : 0 Nurse Collect Order Detail : 0 Lift/Transfer : Maximal assist Central Line Order Detail : No Room Service : Appropriate Arterial Line : No Patient Needs Meds Crushed/Liquid : No Nikki Farley Non Emp RN - 12/31/2021 2:31 EDT documented in this encounter Plan of Treatment Not on file documented as of this encounter Visit Diagnoses Not on filedocumented in this encounter
--- OUTSIDE RECORDS SUMMARY | 2025-03-15 11:18 | XMS_ITS | Encounter Summary ---
Author Organization [employer] ([place], [place], [place], [place]) Address [address] [place] [address] Care Team Providers Care Contract Technical Writer Name Role Phone Unavailable Primary Care Provider Unavailabl e Encounter Details Date Type Department Care Team (Late st Contact Info) Description 12/31/2021 Transcribed Document [facility] [place] [address] [place] [address] ProviderDario MD [address] [place], [place] [phone] Social History Tobacco Use Types Packs/Day Years Used Date Smoking Tobacco: Never Assessed Sex and Gender Information Value Date Recorded Sex Assigned at Not on file Legal Sex Male 5:38 PM CDT Gender Identity Not on file Sexual Orientation Not on file documented as of this encounter Miscellaneous Notes * Cerner Conversion Note - Dario ProviderMD - 12/31/2021 1:58 PM CDT UM Authorization Entered On: 12/31/2021 13:59 EDT Performed On: 12/31/2021 13:58 EDT by DIONNE SCHAFFER RN-UTILIZATION MANAGEMENT REVIEW NON-EXEMPT Primary Insurance Authorization Authorization and Policy Numbers : Insurance 1 Health Plan: [employer] Policy Number: [id number] Authorization Number: Insurance Primary Name : [employer] Policy Number: [id number] Authorization Status-Primary : Certified in total Reference Number-Primary : [id number] Authorization Number-Primary : [id number] Number of Days Authorized-Primary : 11 Day(s) Authorized Service Begin Date-Primary : 12/24/2021 EDT Authorized Service End Date-Primary : 01/04/2022 EDT Authorization Comments-Primary : c/s clinicals faxed via [facility] 12/27-12/31 Historical Authorization Comments-Primary : Comment 1: cont stay approved per fax from [facility] 12/26/21 NRD 01/05/22 (CARMEN TRENT, Dietary Internship 12/26/2021 12:07) Comment 2: c/s clinicals faxed via [employer], auth remains under review on [facility] portal (DIONNE SCHAFFER RN-UTILIZATION MANAGEMENT REVIEW NON-EXEMPT 12/26/2021 09:20) Comment 3: Clinicals submitted on [facility] website for IP approval (JODY MUÑOZ RN 12/25/2021 08:50) DIONNE SCHAFFER RN-UTILIZATION MANAGEMENT REVIEW NON-EXEMPT - 12/31/2021 13:58 EDT documented in this encounter Plan of Treatment Not on file documented as of this encounter Visit Diagnoses Not on filedocumented in this encounter
--- OUTSIDE RECORDS SUMMARY | 2025-03-15 11:18 | XMS_ITS ---
Author Organization [email or web address] Care Team Providers Care Diamond Driller Helper Name Role Phone Cinthia Robertson Unavailable Unavaila YUMIKO Frey Unavailable Unavailable Allergies and adverse reactions Code CodeSystem Substance Reaction Severity StartDate Concern Status Wellbutrin Unknown 03/06/2022 active Toradol Unknown 03/06/2022 active 5489 RXNORM HYDROcodone Unknown 03/06/2022 active 2670 RXNORM Codeine Unknown 03/06/2022 active Care Team Name Role Address Phone Organization Dates YUMIKO MEHTA PCP [address] [facility] [address], [facility], [facility] (Office): : [email or web address] 03/06/2022 - 09/13/2022 Cinthia Robertson [address] [place] [facility] [address], [place] (Office): : [email or web address] 03/06/2022 - 09/13/2022 Goals Section Goals Description Status Target Date Vitaly will maintain current l evel of function in through the review date. Active 09/21/2022 Vitaly will not be exposed to know allergen and be free of allergic reaction through the review date. Active 09/21/2022 Vitaly will participate in activities at their hig hest level Active 09/21/2022 Vitaly will voice a level of comfort through the r eview date. Active 09/21/2022 Vitaly's comfort will be maint ained and preferences will be honored within diet restriction. Active 09/21/2022 Vitaly's will Pressure ulcer w ill show signs of healing and remain free from infection by/through review date. Active 09/21/2022 My wishes will be honored. Active 09/21 Resident will be free from s eizure activity or injury r/t seizures thru the review date. Active 09/21/2022 Resident will have no fall related injuries by n ext review. Active 09/21/2022 Staff will recognize s/s of complications and/or changes of status and notify MD thru next review date. Active 09/21/2022 The resident will be free fr om discomfort or adverse reactions related to anti-anxiety therapy through the review date. Active 09/21/2022 Immunizations Immunization Status Vaccine Details Vaccine Code CodeSystem Date Notes TB 2 Step Mantoux Skin Test completed tuberculin skin test; unspecified formulation Given 0.1 ml Right Forearm intradermally Step 1 of Multi-step with next step required 98 CVX created date: 03/08/2022 consent date: 03/08/2022 administer ed date: 03/06/2022 Educated by Marty on 03/08/2022 Covid 19 Pfizer Booster completed SARS-COV-2 (COVID-19) vaccine, mRNA, spike protein, LNP, preservative free, 30 mcg/0.3mL dose Given Right Deltoid 208 CVX created date: 06/03/2022 consent date: 06/03/2022 administer ed date: 06/03/2022 covid 19 Moderna 1st Dose completed SARS-COV-2 (COVID-19) vaccine, mRNA, spike protein, LNP, preservative free, 100 mcg/0.5mL dose or 50 mcg/0.25mL dose 207 CVX created date: 03/07/2022 administer ed date: 11/20/2020 Covid 19 Moderna 2nd Dose completed SARS-COV-2 (COVID-19) vaccine, mRNA, spike protein, LNP, preservative free, 100 mcg/0.5mL dose or 50 mcg/0.25mL dose 207 CVX created date: 03/07/2022 administer ed date: 12/17/2020 Influenza High dose completed Influenza, high-dose, split virus, quadrivalent, injectable, preservative free Given Left Deltoid 197 CVX created date: 06/13/2022 consent date: 06/13/2022 administer ed date: 06/13/2022 Influenza - .5ml completed Influenza, adjuvanted, inactivated, quadrivalent, injectable, preservative free 205 CVX created date: 03/07/2022 administer ed date: 08/21/2020 Tetanus Booster (Td) completed tetanus and diphtheria toxoids, not adsorbed, for adult use 138 CVX created date: 03/07/2022 administer ed date: 04/22/2019 Pneumococcal conjugate PCV15 completed Pneumococcal conjugate vaccine 15-valent (PCV15), polysaccharide [id number] conjugate, adjuvant, preservative free 215 CVX created date: 03/07/2022 administer ed date: 11/11/2016 COVID Bivalent Booster Wellntel completed SARS-COV-2 (COVID-19) vaccine, mRNA, spike protein, LNP, bivalent, preservative free, 30 mcg/0.3 mL dose, jaya-sucrose formulation Given Left Deltoid 300 CVX created date: 08/25/2022 consent date: 08/25/2022 administer ed date: 08/25/2022 Medications Section Medication Name Status Code CodeSystem Dose Route Frequency Admin Type Sig Text Start Date End Date Tuberculin PPD Solution active 0.1 ml Intrade rmal every mine shifter Routine Inject 0.1 ml intrad ermall y every mine shifter every day(s) for Prophy laxis policy 2022 - Aspirin Tablet active 81 mg Oral one time a day Routine Give 81 mg by mouth one time a day for preven tive 2021 - busPIRone HCl Tablet 5 MG active 473486 RXNORM 1 tablet Oral three times a day Routine Give 1 tablet by mouth three times a day relate d to MAJOR DEPRES SIVE DISORD ER, SINGLE EPISOD E, 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 ) 2021 - Atorvastatin Calcium Tablet 40 MG active 440948 RXNORM 1 tablet Oral at bedtime Routine Give 1 tablet by mouth at bedtim e relate d to HYPERL IPIDEM IA, UNSPEC IFIED (E78.5 ) 2021 - Proscar Tablet active 5 mg Oral one time a day Routine Give 5 mg by mouth one time a day for prosta te where gloves when admini sterin g medica tion 2021 - Ubrogepant Tablet active 100 mg Oral as needed PRN Give 100 mg by mouth every 24 hours as needed for MIGRAI NE 2021 - metFORMIN HCl Tablet 500 MG active 848231 RXNORM 2 tablet Enteral two times a day Routine Give 2 tablet entera lly two times a day relate d to TYPE 2 DIABET ES MELLIT US WITH DIABET IC NEPHRO NEREIDA (E11.2 1) 2021 - Lasix Tablet 40 MG active RXNORM 1 tablet Oral one time a day Routine Give 1 tablet by mouth one time a day relate d to ESSENT IAL (PRIMA RY) HYPERT ENSION (I10) hold and notify MD if bp is low- check bp before giving histor y of hypote nsion 2021 - glipiZIDE Tablet 5 MG active 547058 RXNORM 1 tablet Oral two times a day Routine Give 1 tablet by mouth two times a day relate d to TYPE 2 DIABET ES MELLIT US WITH DIABET IC NEPHRO NEREIDA (E11.2 1) give before meals 2021 - MiraLax Packet 17 GM active 866579 RXNORM 17 gram Oral as needed PRN Give 17 gram by mouth every 24 hours as needed for consti pation 2021 - Multi-Vitamin /Iron Tablet active 1 tablet Oral one time a day Routine Give 1 tablet by mouth one time a day for Supple ment STRAWB ERRY * 2021 - lamoTRIgine Tablet 25 MG active 724974 RXNORM 2 tablet Oral at bedtime Routine Give 2 tablet by mouth at bedtim e relate d to EPILEP SY, UNSPEC IFIED, NOT INTRAC TABLE, WITH STATUS EPILEP TICUS (G40.9 01) Give along with 2 100mg tablet s to equal 250mg nightl y 2021 - lamoTRIgine Tablet 100 MG active 159616 RXNORM 1 tablet Oral in the morning Routine Give 1 tablet by mouth in the mornin g relate d to EPILEP SY, UNSPEC IFIED, NOT INTRAC TABLE, WITH STATUS EPILEP TICUS (G40.9 01) AND Give 2 tablet by mouth at bedtim e relate d to EPILEP SY, UNSPEC IFIED, NOT INTRAC TABLE, WITH STATUS EPILEP TICUS (G40.9 01) Give along with 2 25mg tablet s to equal 250mg nightl y 2021 - [id number] RXNORM 2 tablet Oral at bedtime Routine Give 1 tablet by mouth in the mornin g relate d to EPILEP SY, UNSPEC IFIED, NOT INTRAC TABLE, WITH STATUS EPILEP TICUS (G40.9 01) AND Give 2 tablet by mouth at bedtim e relate d to EPILEP SY, UNSPEC IFIED, NOT INTRAC TABLE, WITH STATUS EPILEP TICUS (G40.9 01) Give along with 2 25mg tablet s to equal 250mg nightl y 2021 - Tylenol Tablet 325 MG active 304125 RXNORM 2 tablet Oral as needed PRN Give 2 tablet by mouth every 6 hours as needed for pain 2021 - Ativan Solution 2 MG/ML active 9754365 RXNORM 1 mg Intramu scular as needed PRN Inject 1 mg intram uscula rly every 24 hours as needed for seizur e activi ty 2021 - Glucagon (rDNA) Kit 1 MG active 162067 RXNORM 1 mg Subcuta neous as needed PRN Inject 1 mg subcut aneous ly as needed for Diabet ic Protoc ol relate d to TYPE 2 DIABET ES MELLIT US WITH DIABET IC NEPHRO NEREIDA (E11.2 1) FOR FSBS LESS THAN 60 AND RESIDE NT IS UNABLE TO SAFELY SWALLO W OR IS UNRESP ONSIVE . RECHEC K IN 10-15 MINUTE S. 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 RECHEC K IN 10-15 MINUTE S. IF BS HAS NOT INCREA SED TO 60 OR GREATE R HOLD DIABET IC MEDS UNTIL MD IS NOTIFI ED. 2021 - Ascorbic Acid Tablet 500 MG active 989601 RXNORM 1 tablet Oral two times a day Routine Give 1 tablet by mouth two times a day for supple ment 2021 - Mental Status Section Date Assessment Total Score Description 06/30/2022 BIMS 15 cognitively int act CAM 0 No delirium ind icated PHQ-9 03 minimal depress ion 06/21/2022 CAM 0 No delirium ind icated Problems Problem # Description Date of onset Resolved Date Code CodeSystem Concern Status 1 ACUTE RESPIRATORY FAILURE WITH HYPOXIA 05/23/[address] active 2 ANEMIA, UNSPECIFIED 05/23/[address] active 3 BENIGN NEOPLASM OF MENINGES, UNSPECIFIED 05/23/[address] active 4 DYSPHAGIA, UNSPECIFIED 05/23/[address] active 5 ENCEPHALOPATHY, UNSPECIFIED 05/23/[address] active 6 MAJOR DEPRESSIVE DISORDER, SINGLE EPISODE, MILD 05/01/[address] active 7 POLYNEUROPATHY, UNSPECIFIED 05/01/[address] active 8 PRIMARY ADRENOCORTICAL INSUFFICIENCY 05/01/[address] active 9 REPEATED FALLS 05/01/[address] ac tive 10 SUICIDAL IDEATIONS 05/01/[address] active 11 PRESSURE ULCER OF SACRAL REGION, UNSTAGEABLE 04/07/[address] active 12 EPILEPSY, UNSPECIFIED, NOT INTRACTABLE, WITH STATUS EPILEPTICUS 04/05/[address] active 13 ACQUIRED ABSENCE OF RIGHT LEG ABOVE KNEE 03/06/[address] active 14 ACUTE PYELONEPHRITIS 03/06/[address] active 15 ESSENTIAL (PRIMARY) HYPERTENSION 03/06/[address] active 16 HYPERLIPIDEMIA, UNSPECIFIED 03/06/[address] active 17 PARAPLEGIA, UNSPECIFIED 03/06/[address] active 18 PRESSURE ULCER OF OTHER SITE, STAGE 2 03/06/[address] active 19 SEPSIS, UNSPECIFIED ORGANISM 03/06/[address] active 20 SPINAL STENOSIS, THORACIC REGION 03/06/[address] active 21 TYPE 2 DIABETES MELLITUS WITH DIABETIC NEPHROPATHY 03/06/[address] active Reason for Referral No Reasons for Referral Entered Social History Social History Observation Description Start Date End Date Code Code System Current Smoking Status Tobacco smoking consumption unknown 338867851 SNOMED CT Sex Assigned At Male 1955 44326-7 [facility] Gender Identity Vital Signs Code Code System Vitals Name Values and Units Timing Information 8462-4 [facility] Blood Pressure-Diastolic Value=65 Un its=mmHg 09/20/2022 8480-6 [facility] Blood Pressure-Systolic Aajyx=461 Un its=mmHg 09/20/2022 8867-4 [facility] Heart rate Value=89.0 Units=/min 04/2023 79472-6 [facility] Pain Level Value=0.0 09/17/2022 8310-5 [facility] Body Temperature Value=97.5 Units= F 09/17/2022 9279-1 [facility] Respiratory Rate Value=20.0 Units=/m in 09/15/2022 71570-0 [facility] O2 % BldC Oximetry Value=94.0 Units= % 09/15/2022 2339-0 [facility] Blood Sugar Zrdag=286.0 Units=mg/dL 09/15/2022 79332-9 [facility] Weight Tcslc=790.0 Units=Lbs 8302-2 [facility] Height Value=72.0 Units=Inches 05/23/2022
--- OUTSIDE RECORDS SUMMARY | 2025-03-15 11:18 | XMS_ITS | Encounter Summary ---
Author Organization Healthcare Address [address] [place] [address] Care Team Providers Care Railcar Brake Operator Name Role Phone John Paul Orellana MD Primary Care Provider [phone] Encounter Details Date Type Department Care Team (Late st Contact Info) Description 08/04/2023 Community Orders Community Practice [address] [place] [address] Shree Anand MD [address] [facility] [address] [place] [address] Parkinsonian features (Primary Dx) Social History Tobacco Use Types Packs/Day Years Used Date Smoking Tobacco: Former Cigarettes Smokeless Tobacco: Never Alcohol Use Standard Drinks/Week Comments Not Currently 0 (1 standard drink = 0.6 oz pur e alcohol) CAGE ASSESSMENT Answer Date Recorded Cage unable to access Not on file 04/20/2022 Cage max number of drinks Not on file 2021 Cage Beverages a week Not on file 04/20/2022 Have you ever felt you should CUT down on your d rinking? 0 04/20/2022 Have you been ANNOYED by people criticizing your drinking? 0 04/20/2022 Have you felt GUILTY about your drinking? 0 04/20/2022 Have you had a drink first t clarita in the morning (EYE-COMPANION CAREGIVER) to steady your nerves or to get rid of a hangover? 0 04/20/2022 CAGE Questionnaire Score 0 022 Sex and Gender Information Value Date Recorded Sex Assigned at Male 04/30/2022 10:09 PM EDT Legal Sex Male 8:54 PM EDT Gender Identity Male 04/30/2022 10:09 PM EDT Sexual Orientation Straight 04/30/2022 10 :09 PM EDT documented as of this encounter Plan of Treatment Not on file documented as of this encounter Visit Diagnoses Diagnosis Parkinsonian features- Primary documented in this encounter Additional Health Concerns Infection Onset Date Last Indicated Resolved Time MRSA 04/20/2022 05/28/2022 documented as of this encounter Care Teams Railcar Brake Operator Relationship Specialty Start Date End Date John Paul Orellana MD [address] [place] [address] PCP - General 01/24/21 documented as of this encounter
--- OUTSIDE RECORDS SUMMARY | 2025-03-15 11:19 | XMS_ITS | Encounter Summary ---
Author Organization [employer] ([place], [place], [place], [place]) Address [address] [place] [address] Care Team Providers Care Hammer Heater Name Role Phone Unavailable Primary Care Provider Unavailabl e Encounter Details Date Type Department Care Team (Late st Contact Info) Description 01/01/2022 Transcribed Document [facility] Family Medicine [address] [place] [address] ProviderDario MD [address] [place], [place] [id number] Social History Tobacco Use Types Packs/Day Years Used Date Smoking Tobacco: Never Assessed Sex and Gender Information Value Date Recorded Sex Assigned at Not on file Legal Sex Male 5:38 PM CDT Gender Identity Not on file Sexual Orientation Not on file documented as of this encounter Miscellaneous Notes * Cerner Conversion Note - Historical ProviderMD - 01/01/2022 8:10 PM CDT Event Note Entered On: 01/01/2022 20:13 EDT Performed On: 01/01/2022 20:10 EDT by Nikki Farley Non Emp RN Event Note Event Date/Time : 01/01/2022 19:15 EDT Event Location : Assigned room Event Details : Nursing assessment additional narrative Description of Event : Received patient asleep on bed not in any form of distress ready for discharge just awaiting [facility] service. Left at [address] per stretcher in stable condition. Nikki Farley Non Emp RN - 01/01/2022 20:10 EDT documented in this encounter Plan of Treatment Not on file documented as of this encounter Visit Diagnoses Not on filedocumented in this encounter
--- OUTSIDE RECORDS SUMMARY | 2025-03-15 11:19 | XMS_ITS | Encounter Summary ---
Author Organization [employer] ([place], [place], [place], [place]) Address [address] [place] [address] Care Team Providers Care Detonator Assembler Name Role Phone Unavailable Primary Care Provider Unavailabl e Encounter Details Date Type Department Care Team (Late st Contact Info) Description 01/01/2022 Transcribed Document [facility] [place] Family Medicine [address] [place] [address] ProviderDario MD [address] [place], [place] [id number] Social History Tobacco Use Types Packs/Day Years Used Date Smoking Tobacco: Never Assessed Sex and Gender Information Value Date Recorded Sex Assigned at Not on file Legal Sex Male 5:38 PM CDT Gender Identity Not on file Sexual Orientation Not on file documented as of this encounter Miscellaneous Notes * Cerner Conversion Note - Historical ProviderMD - 01/01/2022 5:00 AM CDT Chart Check - Review Order Profile Entered On: 01/01/2022 6:37 EDT Performed On: 01/01/2022 5:00 EDT by Nikki Farley Non Emp RN Chart Check Powerplans Initiated/Discontinued as Appropriate : Yes All Active Orders Reviewed : Yes Nikki Farley Non Emp RN - 01/01/2022 6:37 EDT documented in this encounter Plan of Treatment Not on file documented as of this encounter Visit Diagnoses Not on filedocumented in this encounter
--- OUTSIDE RECORDS SUMMARY | 2025-03-15 11:19 | XMS_ITS | Encounter Summary ---
Author Organization Healthcare Address [address] [place] [address] Care Team Providers Care Equity Sales Assistant Name Role Phone John Paul Orellana MD Primary Care Provider [phone] Encounter Details Date Type Department Care Team (Late st Contact Info) Description 04/21/2022 Lab Requisition [facility] [address] [place] [address] Delvis Dominguez MD [address] [facility] [address] [facility] [address] [place] [address] Encounter for general adult medical examination without abnormal findings Social History Tobacco Use Types Packs/Day Years [...] drink first t clarita in the morning (EYE-CUTTER BARREL DRUM) to steady your nerves or to get rid of a hangover? 0 04/20/2022 CAGE Questionnaire Score 0 022 Sex and Gender Information Value Date Recorded Sex Assigned at Male 04/30/2022 10:09 PM EDT Legal Sex Male 8:54 PM EDT Gender Identity Male 04/30/2022 10:09 PM EDT Sexual Orientation Straight 04/30/2022 10 :09 PM EDT COVID-19 Exposure Response Date Recorded In the last 10 days, have yo u been in contact with someone who was confirmed or suspected to have Coronavirus/COVID-19? No / Unsure 04/20/2022 4:43 PM EDT documented as of this encounter Functional Status * Calculated C-SSRS Risk Score (Lifetime/Recent) Answer Date of Assessment Author No Risk Indicated 04/24/2022 8:00 PM EDT Claudy Beaver * Question Answer Date of Assessment Author 1. Wish to be (Past 1 Month) No 022 8:00 PM EDT Claudy Molina 2. Non-Specific Active Suici jaylon Thoughts (Past 1 Month) No 04/24/2022 8:00 PM EDT Law elizabeth Molina 6. Suicidal Behavior (Lifetime) No 8:00 PM EDT Claudy Molina documented as of this encounter Plan of Treatment Not on file documented as of this encounter Procedures Procedure Name Priority Date/Time Associated Diagnosis Comments JANINE AURIS SURVEILLANCE CULTURE Routine 04/20/2022 10:45 PM EDT Encounter for general adult medical examination without abnormal findings documented in this encounter Results * Janine auris Surveillance Culture (04/20/2022 10:45 PM EDT) Culture No growth 04/23/2022 11:05 AM EDT HE[facility]ARE [facility] Swab (Axilla and Groin) 04/20/2022 10:45 PM EDT 04/21/2022 7:23 AM EDT us Delvis Singh MD LAB MICROBIOLOGY - GENERAL ORDERABLES Final Result [facility] [address] [place] [address] documented in this encounter Visit Diagnoses Diagnosis Encounter for general adult medical examination without abnormal findings documented in this encounter Additional Health Concerns Infection Onset Date Last Indicated Resolved Time MRSA 04/20/2022 05/28/2022 documented as of this encounter Care Teams Equity Sales Assistant Relationship Specialty Start Date End Date John Paul Orellana MD [address] [place] [address] PCP - General 01/24/21 documented as of this encounter
--- OUTSIDE RECORDS SUMMARY | 2025-03-15 11:19 | XMS_ITS | Encounter Summary ---
Author Organization [employer] ([place], [place], [place], [place]) Address [address] [place] [address] Care Team Providers Care Teletype Clerk Name Role Phone Unavailable Primary Care Provider Unavailabl e Encounter Details Date Type Department Care Team (Late st Contact Info) Description 12/25/2021 Transcribed Document [facility] Family Medicine [address] [place] [address] ProviderDario MD [address] [place], [place] [phone] Social History Tobacco Use Types Packs/Day Years Used Date Smoking Tobacco: Never Assessed Sex and Gender Information Value Date Recorded Sex Assigned at Not on file Legal Sex Male 5:38 PM CDT Gender Identity Not on file Sexual Orientation Not on file documented as of this encounter Miscellaneous Notes * Cerner Conversion Note - Historical ProviderMD - 12/25/2021 10:38 AM CDT Neurodiagnostics Event Note Entered On: 12/25/2021 10:38 EDT Performed On: 12/25/2021 10:38 EDT by Stephanie Vasquez R.EEG.T Neurodiagnostics Event Note Neurodiagnostic Event Location : Assigned room Neurodiagnostic Event Details : Procedure completed Stephanie Vasquez R.EEG.T - 12/25/2021 10:38 EDT documented in this encounter Plan of Treatment Not on file documented as of this encounter Visit Diagnoses Not on filedocumented in this encounter
--- OUTSIDE RECORDS SUMMARY | 2025-03-15 11:19 | XMS_ITS | Encounter Summary ---
Author Organization [employer] ([place], [place], [place], [place]) Address [address] [place] [address] Care Team Providers Care Intellectual Property Counsel Name Role Phone Unavailable Primary Care Provider Unavailabl e Encounter Details Date Type Department Care Team (Late st Contact Info) Description 12/24/2021 Transcribed Document [facility] Radiology [address] [place] [address] Anali South MD [address] [facility] [address] [place] [address] Social History Tobacco Use Types Packs/Day Years Used Date Smoking Tobacco: Never Assessed Sex and Gender Information Value Date Recorded Sex Assigned at Not on file Legal Sex Male 5:38 PM CDT Gender Identity Not on file Sexual Orientation Not on file documented as of this encounter Miscellaneous Notes * Cerner Conversion Note - Anali South MD - 12/24/2021 5:58 PM EDT Patient: VITALY POOL Age: 66 years Sex: Male : 1955 Associated Diagnoses: None Author: INGRID ELLSWORTH PA-FAM CC: recurrent seizures HPI: 66 YO male who presented to [facility] from [facility] secondary recurrent seizure activity. He is known to our practice from [facility]. Pt has hx of seizures, DM II, HTN, HLD, functional quadraplegia. It appears that pt had increased seizure activity in 10/[address] [facility] (or may have led to him going there). Keppra was added to lamictal at that time, then was hospitalized again at [facility] and dilantin was added to regimen. Despite med changes pt has continued to have seizures. It appears dilantin was low and provider had plans to start titration at [facility]. Pt had seizure for 19 min at SNF yesterday and was still having seizure when transported by EMS. O2 sat was starting to drop. Previously he had had a seizure over 10 min. Do to recurrent seizures he was transferred here to [facility] for further work up. No records from [facility] ER were seen on pts chart. Pt says he has felt feverish. No cp, soa. Has had occ cough. Concerned about sacral/buttock wound. States that previously at [facility] it was almost healed now it is bad again. C/o pain around right parotid gland. States it was found at [facility]. States they have been swabbing his mouth with lemon juice, that helped at first but now swollen. Pt has dentures but not with him. At Snf he was started on azithromycin and prednisone for parotid swelling. Prior hospitalizations: 11/2721-12/18/21 - [facility] - pt was unrepsonsive at [facility] and went to ER. Dc summary said seizures and DKA?. He was intubated for protection. Extubated on 12/08. He had some intermittent seizures during his stay. Dilantin was added. Seizures were stopped with Ativan. Lamictal dose was increased. EEG showed no seizure activity per D/c summary and pt returned to SNF. He was found to have parotid swelling during this time. D/c summary also has Acute resp failure, acute renal failure, hyperkalemia and hypernatremia. 10/2021-12/01/2021 - [facility] - hip and back pain after falling out of bed and laid on the floor for several hours. Admitted for cellulitis. Had seizures with status epilepticus and transferred to ICU 11/12 and intubated. ICU course complicated with agitation and delirium. MRSA in sputum. VRE in urine. Tx with Zyvox. Self extubated. Placed on keppra and continued on lamicatal. He did have relative adrenal insuff and resolved, steroids were tapered off. It appears he was started on Seroquel during the stay also of 50 mg q8h. 08/2021 - [facility] -- Right foot gangrene, s/p right AKA PMHx: Active Problems (6) Back pain Diabetes mellitus type II Hyperlipidemia Hypertension Restless legs syndrome Seizure PAD parotid swelling. delirium in ICU PSHx: right AKA FHx: Father - seizures GM - seizures. SHx: no cigs or alcohol. Home Medications (24) Active albuterol 1.25 mg/3 mL (0.042%) inhalation solution 1.25 mg = 3 mL, PRN, Nebulized Inhalation, Q2H Ativan 2 mg/mL injectable solution 1 mg, PRN, IntraMuscular, Q4H baclofen 20 mg oral tablet 20 mg = 1 Tab, Oral, TID Betadine 10% topical solution 1 Application, Topical, BID betamethasone-clotrimazole 0.05%-1% topical cream 1 Application, Topical, BID Colace 100 mg oral capsule 100 mg = 1 Cap, Oral, BID DermaPhor topical ointment 1 Application, Topical, BID Dilantin Infatabs 50 mg oral tablet, chewable 100 mg = 2 Tab, Oral, TID Eliquis 2.5 mg oral tablet 2.5 mg = 1 Tab, Oral, BID ferrous sulfate 325 mg (65 mg elemental iron) oral tablet 325 mg = 1 Tab, Oral, BID HumaLOG 100 units/mL injectable solution , PRN, SubCutaneous, TID Keppra 750 mg oral tablet 1,500 mg = 2 Tab, Oral, BID LaMICtal 200 mg oral tablet 200 mg = 1 Tab, Oral, BID Lantus 100 units/mL subcutaneous solution 6 Units, SubCutaneous, At Bedtime Milk of Magnesia 8% oral suspension 2.4 Gram = 30 mL, PRN, Oral, At Bedtime MiraLax oral powder for reconstitution 17 Gram, Oral, Daily Neurontin 400 mg oral capsule 400 mg = 1 Cap, Oral, Q8H predniSONE 20 mg oral tablet 40 mg = 2 Tab, Oral, Daily Protonix 40 mg oral delayed release tablet 40 mg = 1 Tab, Oral, BID SEROquel 50 mg oral tablet 50 mg = 1 Tab, Oral, Q8H SSD 1% topical cream 1 Application, Topical, BID Tylenol 325 mg oral tablet 650 mg = 2 Tab, PRN, Oral, Q4H Vitamin C 500 mg oral tablet 500 mg = 1 Tab, Oral, BID Zithromax 250 mg oral tablet 250 mg = 1 Tab, Oral, Daily Allergies (2) Active Reaction codeine None Documented Lortab None Documented ROS: Gen: fatigued RESP: no SOA. occ cough CV: no cp : FC put in at [place] at some point previously; no dysuria Neuro: +seizures, unsure exactly how long he was dx. Skin: wound on buttocks. PE: Vitals Signs (last 24 hrs) Last Charted Minimum Maximum Temp 98.2 (DEC 24 15:55) 97.9 (DEC 24:49) 98.2 (DEC 24 15:55) Mon HR 98 (DEC 24:55) 98 (DEC 24 15:55) 104 (DEC 24 15:12) Periph HR 113 (DEC 24:49) 113 (DEC 24:49) 113 (DEC 24:49) Resp Rate L 13 (DEC 24 15:55) L 13 (DEC 24 15:55) H 30 (DEC 24:49) SBP 132 (DEC 24:55) 121 (DEC 24:49) 140 (DEC 24:12) DBP 69 (DEC 24:55) 69 (DEC 24 15:55) 83 (DEC 24 15:12) MAP 91 (DEC 24:55) 87 (DEC 24 14:14) 101 (DEC 24:12) SpO2 96 (DEC 24:55) 96 (DEC 24 15:55) 98 (DEC 24:49) GEN: sleepy, weak appearing, did wake up to hold conversation. HEENT: NCAT, no icterus, no thrush, nares patent, CV: S1S2, no murmur. No LE edema Resp: decreased BS, NL Abd: Soft, NT, ND +BS Skin: no rashes on inspection and palpation. : FC in place. Ext: No LE edema. No joint edema, erythema. Right AKA Neuro: A&O x 3, CN grossly intact Data: Labs (Last four charted values) WBC H 12.2 (DEC 24) HB L 12.2 (DEC 24) HCT L 38.1 (DEC 24) Plt H 413 (DEC 24) Na L 133 (DEC 24) K H 5.2 (DEC 24) Cl 103 (DEC 24) CO2 26 (DEC 24) BUN 13 (DEC 24) Cr L 0.50 (DEC 24) Glu R H 177 (DEC 24) Ca 9.3 (DEC 24) AST 7 (DEC 24) ALT 27 (DEC 24) ALK P 129 (DEC 24) T Bili 0.2 (DEC 24) PTN 7.4 (DEC 24) ALB L 2.6 (DEC 24) Assessment/Plan: Recurrent seizures -DDx: medication induced, subtherapeutic with meds, infection vs other. -Neuro consult -- D/w Dr. Mcmahon -keep keppra, lamictal and phenytoin as ordered for now -plan for EEG in am -check cbc, cmp, mag, ionized ca, keppra level, phenytoin level, lamictal level, esr, crp, procal, LA Leukocytosis -has been on prednisone, other Ddx infection right parotiditis -area is erythematous, edematous and tender -clindamycin 300 mg tid Stage III wound sacrum and glutes - POA -wound care to evaluate DM II -SSI -check a1c, FSBS ACHS Dysphagia -SHIP BOAT OR BARGE MATE eval -thickened liquids and pureed diet for now. CAD s/p cardiac stent in past. PAD s/p right AKA. DVT prophylaxis -eliquis Assessment and treatment plan made in conjunction with Daphne South MD documented in this encounter Plan of Treatment Not on file documented as of this encounter Visit Diagnoses Not on filedocumented in this encounter
--- OUTSIDE RECORDS SUMMARY | 2025-03-15 11:19 | XMS_ITS | Encounter Summary ---
Author Organization [employer] ([place], [place], [place], [place]) Address [address] [place] [address] Care Team Providers Care Regulator Assembler Name Role Phone Unavailable Primary Care Provider Unavailabl e Encounter Details Date Type Department Care Team (Late st Contact Info) Description 12/29/2021 Transcribed Document [facility] [place] Family Medicine [address] [place] [address] ProviderDario MD [address] [place], [place] [id number] Social History Tobacco Use Types Packs/Day Years Used Date Smoking Tobacco: Never Assessed Sex and Gender Information Value Date Recorded Sex Assigned at Not on file Legal Sex Male 5:38 PM CDT Gender Identity Not on file Sexual Orientation Not on file documented as of this encounter Miscellaneous Notes * Cerner Conversion Note - Historical ProviderMD - 12/29/2021 5:00 PM CDT Chart Check - Review Order Profile Entered On: 12/29/2021 17:01 EDT Performed On: 12/29/2021 17:00 EDT by Asha Chavez RN-PATIENT CARE BEDSIDE NON-EXEMPT Chart Check Powerplans Initiated/Discontinued as Appropriate : Yes All Active Orders Reviewed : Yes Asha Chavez RN-PATIENT CARE BEDSIDE NON-EXEMPT - 12/29/2021 17:01 EDT documented in this encounter Plan of Treatment Not on file documented as of this encounter Visit Diagnoses Not on filedocumented in this encounter
--- OUTSIDE RECORDS SUMMARY | 2025-03-15 11:19 | XMS_ITS | Encounter Summary ---
Author Organization [employer] ([place], [place], [place], [place]) Address [address] [place] [address] Care Team Providers Care Product Safety Consultant Name Role Phone Unavailable Primary Care Provider Unavailabl e Encounter Details Date Type Department Care Team (Late st Contact Info) Description 01/01/2022 Transcribed Document [facility] [place] [facility] [place] [address] ProviderDario MD [address] [place], [place] [id number] Social History Tobacco Use Types Packs/Day Years Used Date Smoking Tobacco: Never Assessed Sex and Gender Information Value Date Recorded Sex Assigned at Not on file Legal Sex Male 5:38 PM CDT Gender Identity Not on file Sexual Orientation Not on file documented as of this encounter Miscellaneous Notes * Cerner Conversion Note - Historical ProviderMD - 01/01/2022 2:55 PM CDT Event Note Entered On: 01/01/2022 15:12 EDT Performed On: 01/01/2022 14:55 EDT by Juani Mercer RN Event Note Event Date/Time : 01/01/2022 15:00 EDT Event Location : Assigned room Description of Event : Upon shift report this morning, I was informed that patient had a rough night and was very aggitated. The non destructive testing specialist nurse and myself went in to do bedside report, but patient was asleep, so he was unable to voice any concerns at that time. During my morning assessment and med pass, I asked patient how his evening was. His reply was Awful. This is the worst hospital stay I have ever had. All of you nurses have no idea how to take care of someone. No one has been in my room all night. But that's ok, I'll have the last laugh on all of you. I asked him if there was anything I could do to help correct whatever was wrong, and apologized that we were not available to respond to him as quickly as he would have liked. He stated, I've called the big boss, you and the rest of them will be sorry. I made it a point to pop and and check on him as much as possible throughout the day today, and continued to be talked down to as the day went on. Upon bringing in his records request that he requested, I was once again met with his disdain for our whole care team, and informed that he will have the last laugh . When I again apologized and informed him that I have been sure to check on him as much as possible, he looked at me and said, you are nothing but a liar trying to cover you own ass. But I will be calling your boss again, and you can try explaining yourself to him. Oh, and I want those records mailed as soon as possible. If you bitches had done your job correctly, these wounds on my butt would have healed by now. And I will be contacting my associate attorney about this stay. At this point, I left the room with the signed records request, and informed my canal equipment maintenance supervisor that I will not be going into this patient's room alone from this point out, as no matter what anyone does or says, it will only proceed in aggitating him more. Juani Mercer RN - 01/01/2022 14:55 EDT documented in this encounter Plan of Treatment Not on file documented as of this encounter Visit Diagnoses Not on filedocumented in this encounter
--- OUTSIDE RECORDS SUMMARY | 2025-03-15 11:19 | XMS_ITS | Encounter Summary ---
Author Organization [employer] ([place], [place], [place], [place]) Address [address] [place] [address] Care Team Providers Care Loft Worker Name Role Phone Unavailable Primary Care Provider Unavailabl e Encounter Details Date Type Department Care Team (Late st Contact Info) Description 12/31/2021 Transcribed Document [facility] [place] [address] [place] [address] ProviderDario MD [address], [place] [id number] Social History Tobacco Use Types Packs/Day Years Used Date Smoking Tobacco: Never Assessed Sex and Gender Information Value Date Recorded Sex Assigned at Not on file Legal Sex Male 5:38 PM CDT Gender Identity Not on file Sexual Orientation Not on file documented as of this encounter Miscellaneous Notes * Cerner Conversion Note - Historical ProviderMD - 12/31/2021 3:00 AM CDT Nutrition Assessment Entered On: 12/31/2021 8:31 EDT Performed On: 12/31/2021 8:31 EDT by Idalia Watson, Engraver Machine Nutrition Assessment Nutrition Assessment Reason : Follow Up Idalia Watson, Engraver Machine - 12/31/2021 8:31 EDT Current Nutrition Regimen Comment : 12/31: mod f/u. Awning Craftsperson visited pt who reported he is awaiting discharge today, per MD discharge is pending pre-cert. Pt stated he eats 50-100% of all of his meals and drinks all of his Glucerna. He also reported that he drinks the orange Gianni but does not like the fruit punch, internal review and audit compliance to order. Pt was very pleasant and said he is willing to do whatever is needed to get his wounds healing. 12/26: Automatic consult d/t PU. Pt is a 66 y/o M admitted for recurrent seizure activity, s/p 19 min seizure at SNF. Neurology following, on EEG monitoring. Pt had PU at previous rehab facility but noted has been getting worse. CAR SUPERVISOR consulted for h/o dysphagia, okay for regular/thin liquid. Visited pt, stated they are eating 100% of meals. Pt was unsure of UBW, stated they were 300# over three years ago, lost wt after back/neck surgery. Pt is unaware of any wt loss recently. Observed no physical signs of wasting. Stated food preferences, will adjust in [employer]. Pt was agreeable to ONS, requested orange gianni. Dx: Recurrent seizures, right parotiditis, stg 3 PU sacrum PMH: DM, HTN, HLD, dysphagia, functional quadriplegia, AKA Meds: vit C, abx, Colace, iron, SSI, Keppra, PPI, miralax, IVF Labs: Glu 155, FSBG 128/160/152, Cr .6 Skin: WOCN 12/26: Unstageable PU right gluteal, Stg 3 PU jarod cleft, LLE skin tears GI: LBM 12/31, +BS Diet: 60 gm carb +Gianni BID, Glucerna BID Intakes: 75-100% recorded (intakes not consistently recorded) Ht: 70 in Wt: 180#/81.82 kg (no new wt 12/31) Wt hx: No wt hx BMI: not appropriate s/p AKA Adj IBW/%IBW: 146#/123% Lori Moon, Dietitian - 12/31/2021 15:16 EDT Nutrition Diagnoses Nutrient Intake : Increased nutrient needs Nutrient Intake Related to : skin integrity Nutrient Intake As Evidenced by : WOCN 12/26: Unstageable PU right gluteal, Stg 3 PU jarod cleft Nutrient Intake Status : Active Increased Nutrient Needs Comment : protein Idalia Watson, Engraver Machine - 12/31/2021 14:28 EDT Nutrition Interventions Meals and Snacks : Carbohydrate-modified diet Nutrition Supplement Therapy : Commercial beverage Idalia Watson, Engraver Machine - 12/31/2021 14:28 EDT Monitoring/Evaluation Energy Intake : Total energy intake Food Intake : Amount of food Protein Intake : Total protein Weight Status : Weight Maintanence Gastrointestinal Function : Bowel Function Integumentary : Pressure Ulcer Status Idalia Watson, Engraver Machine - 12/31/2021 14:28 EDT Nutrition Recommendations Dietitian Recommendations : 1. Continue 60 gm diet +Glucerna BID and Gianni BID. Goal: Intakes 50% or greater 2. Monitor wt 1x/wk *internal review and audit compliance to order new Goal: No significant wt loss 3. Monitor BG, adjust insulin prn Goal: 70-140 mg/dL Risk: Moderate Lori Moon, Dietitian - 12/31/2021 15:16 EDT Nutrition Care Level : Moderate Idalia Watson, Engraver Machine - 12/31/2021 14:28 EDT Electronically signed by [facility] Conversion Rn Lpn Cna Cerner at 12/29/2022 4:41 PM CDT documented in this encounter Plan of Treatment Not on file documented as of this encounter Visit Diagnoses Not on filedocumented in this encounter
--- OUTSIDE RECORDS SUMMARY | 2025-03-15 11:19 | XMS_ITS | Encounter Summary ---
Author Organization [employer] ([place], [place], [place], [place]) Address [address] [place] [address] Care Team Providers Care Sponge Clipper Name Role Phone Unavailable Primary Care Provider Unavailabl e Encounter Details Date Type Department Care Team (Late st Contact Info) Description 01/01/2022 Transcribed Document [facility] – [place] Family Medicine [address] [place] [address] ProviderDario MD [address] [place], [place] [id number] Social History Tobacco Use Types Packs/Day Years Used Date Smoking Tobacco: Never Assessed Sex and Gender Information Value Date Recorded Sex Assigned at Not on file Legal Sex Male 5:38 PM CDT Gender Identity Not on file Sexual Orientation Not on file documented as of this encounter Miscellaneous Notes * Cerner Conversion Note - Historical ProviderMD - 01/01/2022 4:26 PM CDT Stroke/Warfarin Instructions Entered On: 01/01/2022 16:26 EDT Performed On: 01/01/2022 16:26 EDT by Juani Mercer RN Stroke/Warfarin Instructions Stroke/TIA Discharge Ins : N/A Warfarin Discharge Ins : N/A Juani Mercer RN - 01/01/2022 16:26 EDT documented in this encounter Plan of Treatment Not on file documented as of this encounter Visit Diagnoses Not on filedocumented in this encounter
--- OUTSIDE RECORDS SUMMARY | 2025-03-15 11:19 | XMS_ITS | Clinical Summary ---
Author Organization [facility] Address [address] [place] [address] Care Team Providers Care Set Off Press Operator Name Role Phone John Paul Orellana MD Primary Care Provider [phone] Allergies Active Allergy Reactions Criticality Noted Date Comments Bupropion Unknown - Patient st ates they do not know rxn details Low 03/06/2022 Codeine Nausea Low 04/28/2019 Hydrocodone Unknown - Patient st ates they do not know rxn details Low 03/06/2022 Hydrocodone-Acetaminophen Nausea And Vomiting Low 0 05/03/2019 Ketorolac Tromethamine Unknown - Patient states they do not know rxn details Low 03/06/2022 Medications atorvastatin (Lipitor) 40 MG tabletIndication s:Hyperlipidemia Take 40 mg by mouth every night. Active busPIRone (Buspar) 5 MG tabletIndication s:Anxiety Disorder Take 5 mg by mouth 3 (three) times a day. Active finasteride (Proscar) 5 MG tabletIndication s:Benign Prostatic Hypertrophy Take 5 mg by mouth 1 (one) time each day. Do not crush, chew, or split. Active polyethylene glycol (Miralax) 17 g packetIndication s:Constipation Take 17 g by mouth 1 (one) time each day if needed (constipation). Active lamoTRIgine (LaMICtal) 200 MG tabletIndication s:Epilepsy Take 250 mg by mouth 2 (two) times a day. Active triamcinolone (Kenalog) 0.1 % creamIndications :other Apply 1 application topically every 8 (eight) hours if needed for rash. Per facility: apply to back, buttocks every 8 hours as needed for rash Active aspirin 81 MG EC tablet Take 81 mg by mouth 1 (one) time each day. Active diazePAM (Valium) 2 MG tablet Take 2 mg by mouth 2 (two) times a day if needed for anxiety. Active gabapentin (Neurontin) 400 MG capsule Take 400 mg by mouth 3 (three) times a day. Active glipiZIDE (Glucotrol) 5 MG tablet Take 5 mg by mouth 2 (two) times a day before meals. Active hydrocortisone (Cortef) 5 MG tablet Take 5 mg by mouth 2 (two) times a day. Active potassium chloride CR (Klor-Con) 10 MEQ ER tablet Take 20 mEq by mouth 1 (one) time each day. Do not crush, chew, or split. Active furosemide (Lasix) 40 MG tablet Take 40 mg by mouth 1 (one) time each day in the morning. Active Melatonin 5 MG tablet tablet Take 5 mg by mouth every night. Active metFORMIN (Glucophage) 500 MG tablet Take 1,000 mg by mouth 2 (two) times a day with meals. Active QUEtiapine (SEROquel) 50 MG tablet Take 50 mg by mouth 3 (three) times a day. Active levETIRAcetam (Keppra) 750 MG tablet Take 750 mg by mouth 2 (two) times a day. Active ubrogepant (Ubrelvy) 100 MG tablet Take 100 mg by mouth 1 (one) time if needed for migraine. After 2 hours, a second dose may be taken if needed. Maximum dose: 200 mg in 24-hour period. Active amoxicillin-clav ulanate (Augmentin) 875-125 MG tablet Take 1 tablet by mouth 2 (two) times a day. 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, without long-term current use of insulin 04/20/2022 Severe malnutrition 11/21/2021 Left hip pain 10/28/2021 Cervical spondylosis with myelopathy 08/05/2020 Morbidly obese 06/06/2019 Essential hypertension 04/28/2019 Frequent falls 04/28/2019 Peripheral neuropathy 04/28/2019 Spinal stenosis of lumbar region 04/28/2019 Spinal stenosis of thoracic region 04/28/2019 Overview (04/20/2022): Added automatically from request for surgery [id number] Resolved Problems Problem Noted Date Diagnosed Date Resolved Date Encephalopathy acute 05/28/2022 022 Cellulitis 04/20/2022 04/20/2022 Immunizations Immunization Administration Dates Next Due Influenza, high-dose, quadrivalent 08/21/2020, Pneumococcal Conjugate PCV 13 11/11/2016 Td (adult) 04/22/2019 Tdap 04/22/2019 Zoster, live 11/11/2016 Family History Medical History Relation Name Comments Alcohol abuse Father Suicide Attempts Father Relation Name Status Comments Father Social History Tobacco Use Types Packs/Day Years Used Date Smoking Tobacco: Former Cigarettes Smokeless Tobacco: Never Tobacco Cessation:Counseling Given: Not Answered Alcohol Use Standard Drinks/Week Comments Not Currently [...] drink first t clarita in the morning (EYE-FIBER ANALYST) to steady your nerves or to get rid of a hangover? 0 04/20/2022 CAGE Questionnaire Score 0 022 Sex and Gender Information Value Date Recorded Sex Assigned at Male 04/30/2022 10:09 PM EDT Legal Sex Male 8:54 PM EDT Gender Identity Male 04/30/2022 10:09 PM EDT Sexual Orientation Straight 04/30/2022 10 :09 PM EDT Last Filed Vital Signs Vital Sign Reading Time Taken Comments Blood Pressure 94/55 05/30/2022 11:21 AM EDT Pulse 84 05/30/2022 11:21 AM EDT Temperature 36.7 C (98.1 F) 05/30/2022 11:21 AM EDT Respiratory Rate 17 05/30/2022 11:21 AM EDT Oxygen Saturation 94% 05/30/2022 11:21 AM EDT Inhaled Oxygen Concentration - - Weight 105 kg (231 lb 7.7 oz) 05/28/2022 1:44 PM EDT Height 172.7 cm (5' 7.99 ) 04/21/2022 10:00 AM E DT Body Mass Index 35.21 04/21/2022 10:00 AM EDT Plan of Treatment Health Maintenance Due Date Last Done Comments [facility]-Depression Screening 1955 [facility]-Medicare Annual Wellness (AWV) 1955 [facility]-Infant/Child/Adol SDOH Screenings 1955 [facility]-Obesity Intervention 01/19/1960 Diabetes: Dental Exam 01/19/1964 [facility]- SDOH Screenings 01/19/1972 [facility]-Adult SDOH Screenings 01/19/1972 CT Colonography 1999 Colonoscopy 1999 FIT-DNA 1999 FIT 1999 FOBT 1999 Sigmoidoscopy 1999 [facility]-Colorectal Cancer Screening 1999 [facility]-Pneumococcal Vaccine: 50+ Years (2 of 2 - PPSV23) 01/06/2017 11/11/2016 [facility]-Zoster Vaccines (2 of 3) 01/06/2017 11/11/2016 [facility]-Diabetes: Hemoglobin A1C 10/18/202204/2022, 10/28/2021, 07/12/2020, Additional history exists [id number] Vaccine (3 - season) 2024 12/17/2020, 11/20/2020 [facility]-Influenza Vaccine (#1) 2025 08/21/2020, [facility]-RSV Vaccine: 60+ Years or (1 - 1-dose 75+ series) 2029 [facility]-DTaP,Tdap,and Td Vaccines (3 - Td or Tdap) 04/22/2029 04/22/2019, 04/22/2019 [facility]-Hepatitis C Screening Completed 05/28/2022, 04/2022 HPV Vaccines Aged Out No longer eligi ble based on patient's age to complete this topic [facility]-HIB Vaccines Aged Out No longer e ligible based on patient's age to complete this topic [facility]-Hepatitis A Vaccines Aged Out No longer eligible based on patient's age to complete this topic [facility]-IPV Vaccines Aged Out No longer e ligible based on patient's age to complete this topic [facility]-Rotavirus Vaccines Aged Out No lo nger eligible based on patient's age to complete this topic Procedures Procedure Name Priority Date/Time Associated Diagnosis Comments HEPATITIS C ANTIBODY - ED W/REFLEX TO HCV QUANT PCR STAT 05/28/2022 1:39 PM EDT HEMOGLOBIN A1C Routine 04/20/2022 11:09 AM EDT from Last 3 Months or Most Recently Relevant to Health Maintenance Results * Hepatitis C Antibody - ED (05/28/2022 1:39 PM EDT) Hepatitis C Antibody Negative Negative 05/28/2022 3:55 PM EDT [facility] Blood Venous blood specimen / Unknown Venipuncture / Unknown 05/28/2022 1:39 PM EDT 05/28/2022 2:01 PM EDT Ju Genao MD LAB BLOOD ORDERABLES Final R esult [facility] [address] [place] [address] * (ABNORMAL) Hemoglobin A1c (04/20/2022 11:09 AM EDT) Hemoglobin A1c 5.7(H) <5.7 % 04/20/2022 12:24 PM EDT [facility] Blood Venous blood specimen / Unknown Venipuncture / Unknown 04/20/2022 11:09 AM EDT 04/20/2022 12:00 PM EDT Narrative [facility] - 04/20/2022 12:24 PM EDT HA1C Interpretive Data: Diagnosis of Diabetes: Diabetic > or = 6.5% Pre-diabetic 5.7 to 6.4% Non-diabetic < or = 5.6% Glycemic Targets for Type I and Type II Diabetics: Non- Adults <7.0% Adults <6.0% Children and Adolescents <7.5% Source: [place] [employer]. Standards of medical care in diabetes,2017. Diabetes Care.2017:40 (suppl 1):S1-S135. HbA1c assay performed by an ion-exchange chromatography method that is certified traceable to the DCCT. Crys Herrera BRIDGE EXPERT LAB BLOOD ORDERABLES Final Result [facility] [address] [place] [address] from Last 3 Months or Most Recently Relevant to Health Maintenance Additional Health Concerns Infection Onset Date Last Indicated MRSA 04/20/2022 05/28/2022 Insurance [employer] Advance Directives Documents on File Type Date Recorded Patient Manager Route Expl anation Advance Directives and Livin g Will 04/20/2022 2:05 PM Care Teams Set Off Press Operator Relationship Specialty Start Date End Date John Paul Orellana MD [address] [place] [address] PCP - General 01/24/21
--- OUTSIDE RECORDS SUMMARY | 2025-03-15 11:19 | XMS_ITS | Encounter Summary ---
Author Organization [employer] ([place], [place], [place], [place]) Address [address] [place] [address] Care Team Providers Care Manager Truck Name Role Phone Unavailable Primary Care Provider Unavailabl e Encounter Details Date Type Department Care Team (Late st Contact Info) Description 12/25/2021 Transcribed Document [facility] [place] [facility] [place] [address] ProviderDario MD [address] [place] [address] Social History Tobacco Use Types Packs/Day Years Used Date Smoking Tobacco: Never Assessed Sex and Gender Information Value Date Recorded Sex Assigned at Not on file Legal Sex Male 5:38 PM CDT Gender Identity Not on file Sexual Orientation Not on file documented as of this encounter Miscellaneous Notes * Cerner Conversion Note - Historical ProviderMD - 12/25/2021 8:50 AM CDT UM Authorization Entered On: 12/25/2021 8:50 EDT Performed On: 12/25/2021 8:50 EDT by JODY MUÑOZ RN Primary Insurance Authorization Authorization and Policy Numbers : Insurance 1 Health Plan: [employer] MEDICARE Policy Number: [id number] Authorization Number: Insurance Primary Name : [employer]ED MEDICARE Policy Number: [id number] Authorization Status-Primary : Awaiting callback Reference Number-Primary : [id number] Authorized Service Begin Date-Primary : 12/24/2021 EDT Authorization Comments-Primary : Clinicals submitted on [employer] website for IP approval Historical Authorization Comments-Primary : No Authorization Comments Found JODY MUÑOZ RN - 12/25/2021 8:50 EDT documented in this encounter Plan of Treatment Not on file documented as of this encounter Visit Diagnoses Not on filedocumented in this encounter
--- OUTSIDE RECORDS SUMMARY | 2025-03-15 11:19 | XMS_ITS | Encounter Summary ---
Author Organization [employer] ([place], [place], [place], [place]) Address [address] [place] [address] Care Team Providers Care As400 Analyst Name Role Phone Unavailable Primary Care Provider Unavailabl e Encounter Details Date Type Department Care Team (Late st Contact Info) Description 01/01/2022 Transcribed Document [facility] [place] [address] ProviderDario MD [address], [place] [id number] Social History Tobacco Use Types Packs/Day Years Used Date Smoking Tobacco: Never Assessed Sex and Gender Information Value Date Recorded Sex Assigned at Not on file Legal Sex Male 5:38 PM CDT Gender Identity Not on file Sexual Orientation Not on file documented as of this encounter Miscellaneous Notes * Cerner Conversion Note - Historical ProviderMD - 01/01/2022 4:30 PM CDT Discharge Summary, PT Entered On: 01/01/2022 16:34 EDT Performed On: 01/01/2022 16:30 EDT by DEVAN RALPH, PT Discharge Summary Reason for Discharge : Discharge order Discharged to, Therapy : Unit, shelter Discharge Summary Comment, PT : Pt being discharged to a SNF for rehab. He has been doing ex and working on bed mobiltiy and sitting balance. He sat EOB yesterday for 15 min with min to supervision. He needed min assist to roll bilaterally with the rail. He needed max of 2 for scooting and supine<->sit. He met 1/3 ST Goals and 1/3 LT Goals. DEVAN RALPH, PT - 01/01/2022 16:30 EDT Short Term Goals Mobility/Bed Mobility STG PT Grid Goal #1 Goal #2 Activity : Supine to sit Assist : Assist, moderate Date to Meet : 01/02/2022 EDT Goal Status : Not met Comment : see balance goal below DEVAN RALPH, PT - 01/01/2022 16:30 EDT DEVAN RALPH, PT - 01/01/2022 16:30 EDT Transfer STG Grid Goal #1 Destination : Chair, with arms Type : Mechanical lift Assist : Assist, maximal Date to Meet : 01/02/2022 EDT Goal Status : Not met DEVAN RALPH, PT - 01/01/2022 16:30 EDT BalanceSTG Grid Goal #1 Activity : Sitting, static Assist : Assist, moderate Date to Meet : 01/02/2022 EDT Goal Status : Goal met Date Met : 12/31/2021 EDT DEVAN RALPH, PT - 01/01/2022 16:30 EDT Evp Head [employer] Experience Strategy Goals Mobility/Bed Mobility LTG PT Grid Goal #1 Goal #2 Activity : Supine to sit Assist : Assist, minimal Date to Meet : 01/09/2022 EDT Goal Status : Not met Comment : sitting balance goal DEVAN RALPH, PT - 01/01/2022 16:30 EDT DEVAN RALPH, PT - 01/01/2022 16:30 EDT Transfer LTG Grid Goal #1 Destination : Chair, with arms Type : Sliding board Assist : Assist, maximal Equipment : Belt, gait Date to Meet : 01/09/2022 EDT Goal Status : Not met DEVAN RALPH, PT - 01/01/2022 16:30 EDT BalanceLTG Grid Goal #1 Activity : Sitting, static Assist : Assist, minimal Date to Meet : 01/09/2022 EDT Goal Status : Goal met Date Met : 12/31/2021 EDT DEVAN RALPH, PT - 01/01/2022 16:30 EDT documented in this encounter Plan of Treatment Not on file documented as of this encounter Visit Diagnoses Not on filedocumented in this encounter
--- OUTSIDE RECORDS SUMMARY | 2025-03-15 11:19 | XMS_ITS | Encounter Summary ---
Author Organization [employer] ([place], [place], [place], [place]) Address [address] [place] [address] Care Team Providers Care Payroll Associate Name Role Phone Unavailable Primary Care Provider Unavailabl e Encounter Details Date Type Department Care Team (Late st Contact Info) Description 01/01/2022 Transcribed Document [facility] Radiology [address] [place] [address] Anali South MD [address] [address] Social History Tobacco Use Types Packs/Day Years Used Date Smoking Tobacco: Never Assessed Sex and Gender Information Value Date Recorded Sex Assigned at Not on file Legal Sex Male 5:38 PM CDT Gender Identity Not on file Sexual Orientation Not on file documented as of this encounter Miscellaneous Notes * Cerner Conversion Note - Anali South MD - 01/01/2022 9:37 AM EDT Patient: VITALY POOL Age: 66 years Sex: Male : 1955 Associated Diagnoses: None Author: INGRID ELLSWORTH PA-BAMBI Attending : Brannon neurology : Dr. Mcmahon, Dr. Myrick Admit Date: 12/24/21 Discharge Date: Admit dx: Recurrent seizures Discharge Dx: Recurrent seizures Leukocytosis right parotiditis Stage III wound sacrum and glutes DM II - well controlled A1c 6.4 Dysphagia - cleared for reg text and thin liquids CAD s/p cardiac stent in past. PAD s/p right AKA. Discharge Plan: DC to SNF Full Code Diet: diabetic diet, reg texture, thin liquids, sit up to eat and drink. Activity: as tolerated High risk hospital readmission High risk for falls; implement fall precautions on admission High risk for skin breakdown; apply mepilex to sacrum and bony prominences Turn or Reposition pt Q2hrs when in bed Offload heels using pillows under calf allowing heels not to touch surfaces or apply Heel Medix boots Apply Aloe Biscoe 3 (clear) or Sensicare 3 (white Zinc) barrier cream to citlalli/rectal/buttock/scrotal/labia if moisture or erosion noted Interdry to abdominal or groin folds if moisture noted, linear wounds, or yeast noted Waffle Cushion to chair if pt is allowed to be up in chair wound treatment: --- have wound care MD follow. Medihoney to sacrum *Encourage/assist patient to turn minimum Q2H and PRN *Offload heels with pillows, consider heelmedix offloading boots as indicated *Waffle chair cushion if OOB to chair *Offload devices with dressings for prevention. Change dressings Q 3-5 days and PRN. Peel back dressings Q shift to assess skin integrity and reapply. *Remove/move devices Q shift to assess skin integrity *Silicone sacral border dressing to sacrum/coccyx for prevention. Change dressing Q3-5 days and PRN. Peel back dressing Q shift to assess skin integrity and reapply. *EZ wraps to NC as indicated *Incontinence guideline as indicated *Skin tear guideline as indicated *Diapers/briefs should have limited use and application should be determined on a patient by patient basis. *Keep hips aligned with hip indicators *Keep HOB </= 30 degrees to decrease shear unless contraindicated Lamictal titration: Currently on lamictal 250 mg qam and 200 mg qpm. on 01/07 increase to 250 mg bid Discharge Medications (19) Active albuterol 1.25 mg/3 mL (0.042%) inhalation solution 1.25 mg = 3 mL, PRN, Nebulized Inhalation, Q2H Ativan 2 mg/mL injectable solution 1 mg, PRN, IntraMuscular, Q4H baclofen 20 mg oral tablet 20 mg = 1 Tab, Oral, TID clindamycin 150 mg oral capsule 300 mg = 2 Cap, Oral, TID thru 01/07/22 Colace 100 mg oral capsule 100 mg = 1 Cap, Oral, BID Dilantin Infatabs 50 mg oral tablet, chewable 100 mg = 2 Tab, Oral, TID Eliquis 2.5 mg oral tablet 2.5 mg = 1 Tab, Oral, BID ferrous sulfate 325 mg (65 mg elemental iron) oral tablet 325 mg = 1 Tab, Oral, BID Keppra 750 mg oral tablet 1,500 mg = 2 Tab, Oral, BID LaMICtal 100 mg oral tablet 250 mg = 2.5 Tab, Oral, QAM (on 01/07 increase to bid) LaMICtal 100 mg oral tablet 200 mg = 2 Tab, Oral, QPM (on 01/07 discontinue this dose) Lantus 100 units/mL subcutaneous solution 6 Units, SubCutaneous, At Bedtime Milk of Magnesia 8% oral suspension 2.4 Gram = 30 mL, PRN, Oral, At Bedtime MiraLax oral powder for reconstitution 17 Gram, Oral, Daily Neurontin 400 mg oral capsule 400 mg = 1 Cap, Oral, Q8H Protonix 40 mg oral delayed release tablet 40 mg = 1 Tab, Oral, BID SEROquel 50 mg oral tablet 50 mg = 1 Tab, Oral, Q8H Tylenol 325 mg oral tablet 650 mg = 2 Tab, PRN, Oral, Q4H Vitamin C 500 mg oral tablet 500 mg = 1 Tab, Oral, BID HPI: 66 YO male who presented to [facility] from [facility] secondary recurrent seizure activity. He is known to our practice from [facility]. Pt has hx of seizures, DM II, HTN, HLD, functional quadraplegia. It appears that pt had increased seizure activity in 10/2021 when at [facility] (or may have led to him going there). Keppra was added to lamictal at that time, then was hospitalized again at [facility] and dilantin was added to regimen. Despite med changes pt has continued to have seizures. It appears dilantin was low and provider had plans to start titration at [facility]. Pt had seizure for 19 min at [facility] yesterday and was still having seizure when transported by EMS. O2 sat was starting to drop. Previously he had had a seizure over 10 min. Do to recurrent seizures he was transferred here to [facility] for further work up. No records from [facility] ER were seen on pts chart. Pt says he has felt feverish. No cp, soa. Has had occ cough. Concerned about sacral/buttock wound. States that previously at [facility] it was almost healed now it is bad again. C/o pain around right parotid gland. States it was found at [facility]. States they have been swabbing his mouth with lemon juice, that helped at first but now swollen. Pt has dentures but not with him. At [facility] he was started on azithromycin and prednisone for parotid swelling. Hospital Course: during stay patient had only one seizure in ER when they were rolling him over. He has not had any other seizures since that time. Patient received IV fluids for hydration. He was seen by speech therapy and had a modified barium swallow. He past and was transitioned to regular texture foods and thin liquids. Patient was found over the weekend to be lying back in bed while eating. It is highly recommended that he sit up to eat to almost 90?? angle to avoid risk of aspiration. during his stay patient was on EEG monitoring for several days. No seizure activity was noted. D/w nephrology will increase lamictal to 250 mg bid in 1 week. Will see how he tolerates dose. If pt has any increased fatigue, may need dose reduction. Pt will need to f/u with his primary neurologist. Pt had parotiditis that is improving. Has been on clindamycin for this and is feeling better. will continue for 14 days total Pt is doing ok. No f'/c/s. No n/v/d. (+) gas, (+) BM. No CP, SOA, palpitations. No cough or sputum. Urinating well. Ready to discharge to [facility]. PE: Vitals Signs (last 24 hrs) Last Charted Minimum Maximum Temp 97.9 (JAN 01:19) 97.9 (JAN 01 08:19) 98.3 (DEC 31 09:00) Mon HR 101 (JAN 01:) 31 (DEC 31 09:00) 110 (DEC 31 14:00) Resp Rate 14 (JAN 01 08:19) 14 (DEC 31 14:00) 18 (DEC 31 21:00) SBP 102 (JAN 01 08:19) 102 (JAN 01 08:) 133 (DEC 31 10:27) DBP L 59 (JAN 01:) L 59 (JAN 01 08:19) 81 (DEC 31 10:27) MAP 73 (JAN 01 08:19) 73 (JAN 01 08:19) 92 (DEC 31 10:27) SpO2 99 (JAN 01 08:19) L 83 (DEC 31 21:09) 99 (DEC 31 09:00) GEN: Alert, awake, NAD; resting in bed. CV: S1S2, no murmur. No LE edema Resp: CTAB, NL; no wheeze or rhonchi. Abd: Soft, NT, ND +BS Skin: no rashes on inspection and palpation. Ext: No LE edema. No joint edema, erythema. Neuro: A&O x 3 Data: Labs (Last four charted values) WBC 9.3 (JAN 01) 7.9 (DEC 31) 7.6 (DEC 30) 9.3 (DEC 29) HB L 11.3 (JAN 01) L 11.2 (DEC 31) L 10.8 (DEC 30) L 10.3 (DEC 29) HCT L 36.1 (JAN 01) L 34.9 (DEC 31) L 34.6 (DEC 30) L 32.6 (DEC 18) Plt 279 (JAN 01) 274 (DEC 31) 290 (DEC 30) 307 (DEC 18) Na 138 (JAN 01) 138 (DEC 31) 141 (DEC 30) 140 (DEC 18) K 4.2 (JAN 01) 4.3 (DEC 31) 4.6 (DEC 30) 4.1 (DEC 18) Cl 107 (JAN 01) 106 (DEC 31) 108 (DEC 30) 109 (DEC 18) CO2 25 (JAN 01) 26 (DEC 31) 27 (DEC 30) 25 (DEC 18) BUN 20 (JAN 01) 17 (DEC 20) 15 (DEC 30) 21 (DEC 18) Cr L 0.50 (JAN 01) L 0.60 (DEC 20) L 0.50 (DEC 30) 0.80 (DEC 18) Glu R H 131 (JAN 01) H 155 (DEC 31) H 140 (DEC 30) H 198 (DEC 18) Ca 9.0 (JAN 01) 8.9 (DEC 20) 9.1 (DEC 19) 8.5 (DEC 18) Lactic 0.8 (DEC 13) AST 9 (DEC 16) 7 (DEC 24) ALT 21 (DEC 27) 27 (DEC 24) ALK P 117 (APR 16) 129 (APR 13) T Bili L 0.1 (DEC 27) 0.2 (DEC 24) PTN 6.5 (DEC 27) 7.4 (DEC 24) ALB L 2.3 (DEC 27) L 2.6 (DEC 24) CT 12/24 FINDINGS: No acute intracranial hemorrhage or large acute cortical infarct. The brain volume is normal for the patient's age. Ventricles are normal in size and configuration. No midline shift. The basal cisterns are patent. No skull fracture. The visualized paranasal sinuses and mastoid air cells are clear. Intracranial arterial atherosclerotic calcifications. Partially imaged right parotid gland demonstrates enlargement, heterogeneous hyperattenuation, and surrounding inflammatory fat stranding. IMPRESSION: No acute intracranial hemorrhage or large acute cortical infarct. Partially imaged right parotid gland demonstrates enlargement, heterogeneous hyperattenuation, and surrounding inflammatory fat stranding, concerning for right parotiditis. Assessment and treatment plan made in conjunction with Daphne South MD documented in this encounter Plan of Treatment Not on file documented as of this encounter Visit Diagnoses Not on filedocumented in this encounter
--- OUTSIDE RECORDS SUMMARY | 2025-03-15 11:19 | XMS_ITS | Encounter Summary ---
Author Organization [employer] ([place], [place], [place], [place]) Address [address] [place] [address] Care Team Providers Care Exchange Underwriting Consultant Name Role Phone Unavailable Primary Care Provider Unavailabl e Encounter Details Date Type Department Care Team (Late st Contact Info) Description 12/28/2021 Transcribed Document [facility] Family Medicine [facility] [place] [address] ProviderDario MD [address] [place] [id number] Social History Tobacco Use Types Packs/Day Years Used Date Smoking Tobacco: Never Assessed Sex and Gender Information Value Date Recorded Sex Assigned at Not on file Legal Sex Male 5:38 PM CDT Gender Identity Not on file Sexual Orientation Not on file documented as of this encounter Miscellaneous Notes * Cerner Conversion Note - Historical ProviderMD - 12/28/2021 1:59 PM CDT On Going Discharge Planning Entered On: 12/28/2021 13:59 EDT Performed On: 12/28/2021 13:59 EDT by CALIXTO MCCABE, [employer] Head Tender Care Management Progress Note Discharge Arrangements : Patient Post-Acute Information Patient Name: VITALY POOL Gender: Male : [birth year] Age: 66 Years No Post-Acute Placement(s) Listed No Post-Acute Service(s) Listed No [place] Referral(s) Listed Discharge Options Discussed with Patient : Discharge transportation, DME, Home Health, Short term rehabilitation Barriers to Discharge Identified : Clinical Condition of Patient Barriers to Discharge Unresolved : Clinical Condition of Patient Patient Discharge Goal : group home facility Is the Patient Meeting Medical Necessity : Yes Did you Attend Multidisciplinary Rounds? : No CALIXTO MCCABE, [employer]-Railway Head Tender - 12/28/2021 13:59 EDT Narrative Progress Note Narrative Progress Note : Patient is medically ready for discharge. Cm sent updates to Hailee trammell. CM sent message to Lisandra from signature asking for precert with insurance to be started as soon as possible. Cm scheduled [facility] for 6 pm 12/29 if bed is available and precert obtained. [facility] will need to be changed if patient is not approved to go. CM will continue to follow. CALIXTO MCCABE, [employer]-Railway Head Tender - 12/28/2021 13:59 EDT documented in this encounter Plan of Treatment Not on file documented as of this encounter Visit Diagnoses Not on filedocumented in this encounter
--- OUTSIDE RECORDS SUMMARY | 2025-03-15 11:19 | XMS_ITS | Encounter Summary ---
Author Organization [employer] ([place], [place], [place], [place]) Address [address] [place] [address] Care Team Providers Care Ambulatory Care Nurse Name Role Phone Unavailable Primary Care Provider Unavailabl e Encounter Details Date Type Department Care Team (Late st Contact Info) Description 12/28/2021 Transcribed Document [facility] [place] [facility] [place] [address] ProviderDario MD [address], [place] [id number] Social History Tobacco Use Types Packs/Day Years Used Date Smoking Tobacco: Never Assessed Sex and Gender Information Value Date Recorded Sex Assigned at Not on file Legal Sex Male 5:38 PM CDT Gender Identity Not on file Sexual Orientation Not on file documented as of this encounter Miscellaneous Notes * Cerner Conversion Note - Historical ProviderMD - 12/28/2021 10:56 AM CDT Patient: VITALY POOL Age: 66 Years Sex: Male : 1955 Assessment 66-year-old male right AKA, lower extremity paralysis with Right Parodititis, on clindamycin, elevated WBC in the face of steroids as well, with breakthrough seizures on Neurontin 400 every 8, Dilantin 100 3 times daily and, Lamictal 200 twice daily and Keppra 1500 twice daily. He obviously has a narrow therapeutic window. Available Lamictal may be decreased in the presence of Dilantin. I will increase Lamictal by 50 mg to 250 a.m, 200 p.m. Every 10 days increase by 50 mg until he is at 300 twice daily. This slow taper decreases the risk of complications. He can be discharged when medically stable. Dr. Mcmahon returns tomorrow. If this is not effective he may be a candidate for VNS. He was transferred from an outside facility after repetitive spells. Continuous EEG monitoring does not show any seizures at this time. I have reviewed the case with Dr. mAezcua and continue the EEG another 24 hours. Subjective No seizures no new clinical issues Presentation: 66yo M with h/o seizures admitted with recurrent spells concerning for seizure; he was admitted to in October for intractable seizures as well and started on Dilantin and Keppra in addition to Lamictal which he had been taking for several years. He has had two episodes here concerning for seizure, which resolved with Ativan; continuous EEG initiated 4???14. He currently remains on his usual doses of Lamictal, Keppra and Dilantin; Dilantin level yesterday was slightly subtherapeutic (corrects to 10.6 with low albumin taken into account), though he may have missed a dose or two with transfer from another hospital. I will recheck phenytoin level tomorrow AM; will review continuous EEG, any changes in medications to be based on those results. Plan discussed with patient; neurology will follow. I have spent 40 minutes on this case today. Over half of that time was spent reviewing the chart, discussion with care givers, and counseling, reviewing and discussion with consulting MDs. Review of Systems ROS negative 10 system complete review except for symptoms in HPI Physical Exam Eyes, ENT-negative Pulmonary clear Cardiac without murmur Mental Status: normal Orientation to time place person, Attention, Speech naming, repetition, spontaneous, Language, memory recent and remote, Fund of knowledge Cranial Nerves: II through XII intact and symmetric Motor: Strength lower extremity paralysis chronic Sensory: Responds in all 4 extremities Reflexes symmetric, toes down Cerebellar: no abnormal movements Gait: not tested due to pt condition Psychiatric: Appropriate Musculoskeletal: negative Lab Elevated white count Dilantin level 6.2 Studies personally reviewed Imaging CT head mild atrophy Studies personally reviewed Electronically signed by Olena Cruz Conversion Inspector [employer] Rory at 12/29/2022 4:52 PM CDT documented in this encounter Plan of Treatment Not on file documented as of this encounter Visit Diagnoses Not on filedocumented in this encounter
--- OUTSIDE RECORDS SUMMARY | 2025-03-15 11:19 | XMS_ITS | Encounter Summary ---
Author Organization [employer] ([place], [place], [place], [place]) Address [address] [place] [address] Care Team Providers Care Operations Administrative Assistant Name Role Phone Unavailable Primary Care Provider Unavailabl e Encounter Details Date Type Department Care Team (Late st Contact Info) Description 12/25/2021 Transcribed Document [facility] [place] [facility] [place] [address] ProviderDario MD [address] [place], [place] [id number] Social History Tobacco Use Types Packs/Day Years Used Date Smoking Tobacco: Never Assessed Sex and Gender Information Value Date Recorded Sex Assigned at Not on file Legal Sex Male 5:38 PM CDT Gender Identity Not on file Sexual Orientation Not on file documented as of this encounter Miscellaneous Notes * Cerner Conversion Note - Historical ProviderMD - 12/25/2021 9:[address] [facility] [facility] [employer] Charges Entered On: 12/25/2021 9:42 EDT Performed On: 12/25/2021 9:41 EDT by LUKE ACKERMAN SLP [facility] [employer] Charges Screen For Speech Therapy : 1 LUKE ACKERMAN SLP - 12/25/2021 9:41 EDT documented in this encounter Plan of Treatment Not on file documented as of this encounter Visit Diagnoses Not on filedocumented in this encounter
--- OUTSIDE RECORDS SUMMARY | 2025-03-15 11:19 | XMS_ITS | Encounter Summary ---
Author Organization [employer] ([place], [place], [place], [place]) Address [address] [place] [address] Care Team Providers Care Motor Equipment Captain Name Role Phone Unavailable Primary Care Provider Unavailabl e Encounter Details Date Type Department Care Team (Late st Contact Info) Description 12/29/2021 Transcribed Document [facility] Radiology [address] [place] [address] Anali South MD [facility] [address] [address] Social History Tobacco Use Types Packs/Day Years Used Date Smoking Tobacco: Never Assessed Sex and Gender Information Value Date Recorded Sex Assigned at Not on file Legal Sex Male 5:38 PM CDT Gender Identity Not on file Sexual Orientation Not on file documented as of this encounter Miscellaneous Notes * Cerner Conversion Note - Anali South MD - 12/29/2021 10:09 AM EDT Patient: VITALY POOL Age: 66 years Sex: Male : 1955 Associated Diagnoses: None Author: WILLIAM SOTO PA CC: recurrent seizures S: Doing okay. No concerns from nursing. Insurance pre-CERT currently on motion, waiting for placement back to full [place]. Currently wearing oxygen that he does not wear at baseline so we will attempt to wean this. Latest readings on monitor all at 100%. Patient oriented to person and time. Denies f/c/s. no soa, chest pain. no n/v/d. no abd pain. no dysuria, hematuria HPI: 66 YO male who presented to [facility] from [facility] secondary recurrent seizure activity. He is known to our practice from [facility]. Pt has hx of seizures, DM II, HTN, HLD, functional quadraplegia. It appears that pt had increased seizure activity in 10/2021 when at [facility] (or may have led to him going there). Keppra was added to lamictal at that time, then was hospitalized again at [facility] and dilantin was added to regimen. Despite med changes pt has continued to have seizures. It appears dilantin was low and provider had plans to start titration at [facility]. Pt had seizure for 19 min at [facility] yesterday and was still having seizure when transported by EMS. O2 sat was starting to drop. Previously he had had a seizure over 10 min. Do to recurrent seizures he was transferred here to [facility] for further work up. No records from [facility] ER were seen on pts chart. Pt says he has felt feverish. No cp, soa. Has had occ cough. Concerned about sacral/buttock wound. States that previously at [facility] it was almost healed now it is bad again. C/o pain around right parotid gland. States it was found at [facility]. States they have been swabbing his mouth with lemon juice, that helped at first but now swollen. Pt has dentures but not with him. At [facility] he was started on azithromycin and prednisone for parotid swelling. Prior hospitalizations: 11/2721-12/18/21 - [facility] - pt was unrepsonsive at [facility] and went to ER. Dc summary said seizures and DKA?. He was intubated for protection. Extubated on 12/08. He had some intermittent seizures during his stay. Dilantin was added. Seizures were stopped with Ativan. Lamictal dose was increased. EEG showed no seizure activity per D/c summary and pt returned to [facility]. He was found to have parotid swelling during this time. D/c summary also has Acute resp failure, acute renal failure, hyperkalemia and hypernatremia. 10/2021-12/01/2021 - [facility] - hip and back pain after falling [...] also of 50 mg q8h. 08/2021 - [facility] -- Right foot gangrene, s/p right AKA PMHx: Active Problems (7) At risk for sleep apnea Back pain Diabetes mellitus type II Hyperlipidemia [...] Reaction codeine None Documented Lortab None Documented PE: Vitals Signs (last 24 hrs) Last Charted Minimum Maximum Temp 98.1 (DEC 29 06:00) 97.5 (DEC 28:00) 98.1 (DEC 28:46) Mon HR 93 (DEC 29 06:00) 47 (DEC 28:46) 101 (DEC 29 02:09) Resp Rate 18 (DEC 29 06:00) 16 (DEC 29 02:09) 18 (DEC 28:26) SBP 129 (DEC 29 06:00) 109 (DEC 28:46) 130 (DEC 28:00) DBP 71 (DEC 29 06:00) L 50 (DEC 28:46) 71 (DEC 29 06:00) MAP 93 (DEC 29 06:00) 77 (DEC 28:46) 93 (DEC 29 06:00) SpO2 100 (DEC 29 06:00) 96 (DEC 28:26) 100 (DEC 28:00) GEN: Chronically ill-appearing white male laying in bed, NAD HEENT: NCAT, no icterus, no thrush. Nares patent. CV: S1S2, no murmur. No LE edema RESP: CTAB, NL. No wheezes or rhonchi, 2 L nasal cannula ABD: soft, NTND, +BS URO: De [place] Santos catheter with clear yellow urine SKIN: no rashes on inspection and palpation to visible skin NEURO: A&O x 3, CN grossly intact. No focal deficits. MSK: Generalized weakness. No calf tenderness. No joint edema, erythema. Data: Labs (Last four charted values) WBC 9.3 (DEC 29) 8.4 (DEC 17) H 10.3 (DEC 16) H 9.7 (DEC 15) HB L 10.3 (DEC 29) L 10.3 (DEC 17) L 10.6 (DEC 16) L 10.6 (DEC 15) HCT L 32.6 (DEC 18) L 33.7 (DEC 17) L 33.2 (DEC 16) L 34.0 (DEC 15) Plt 307 (DEC 18) 311 (DEC 17) 341 (DEC 16) 342 (DEC 15) Na 140 (APR 18) 140 (DEC 17) 140 (DEC 16) 137 (DEC 15) K 4.1 (DEC 18) 4.6 (DEC 17) 4.2 (DEC 16) 4.3 (DEC 15) Cl 109 (DEC 18) 110 (DEC 17) 109 (DEC 16) 108 (DEC 15) CO2 25 (DEC 18) 27 (DEC 17) 25 (DEC 16) 25 (DEC 15) BUN 21 (DEC 18) 16 (DEC 17) 17 (DEC 16) 18 (DEC 15) Cr 0.80 (DEC 18) L 0.40 (DEC 17) 0.80 (DEC 16) 0.70 (DEC 15) Glu R H 198 (DEC 18) H 134 (DEC 17) H 237 (DEC 16) H 129 (DEC 15) Ca 8.5 (DEC 18) 8.9 (DEC 17) 8.5 (DEC 16) 8.9 (DEC 15) Lactic 0.8 (DEC 13) AST 9 (DEC 16) 7 (DEC 24) ALT 21 (DEC 16) 27 (DEC 13) ALK P 117 (DEC 16) 129 (DEC 13) T Bili L 0.1 (DEC 16) 0.2 (DEC 13) PTN 6.5 (DEC 16) 7.4 (DEC 13) ALB L 2.3 (DEC 16) L 2.6 (DEC 24) Assessment/Plan: Recurrent seizures -DDx: medication induced, subtherapeutic with meds, infection vs other. -Neuro consult -- D/w Dr. Mcmahon -keep keppra, lamictal and phenytoin as ordered for now -plan for EEG in am -check cbc, cmp, mag, ionized ca, keppra level, phenytoin level, lamictal level, esr, crp, procal, LA -- some labs still pending -12/25 -- no seizures over night. -12/26 continuing EEG monitoring for 24 hours longer. -12/28 -- -off of EEG, weekly increase with lamictal until at 300 mg bid. See neurology note for titration recommendation Leukocytosis -has been on prednisone, other Ddx infection -12/25 - improving right parotiditis -area is erythematous, edematous and tender -clindamycin 300 mg tid -12/25 - continues to hurt. Stage III wound sacrum and glutes - POA -wound care to evaluate DM II -SSI -check a1c, FSBS ACHS -12/25 - well controlled. A1c 6.4 Dysphagia -MODEL PHOTOGRAPH[employer]' eval -thickened liquids and pureed diet for now. -12/25 - passed MBS --- ok for regular diabetic diet and thin liquids -12/28 d/w pt importance of him sitting straight up when eating. Showed him how he could raise the head of the bed up. CAD s/p cardiac stent in past. PAD s/p right AKA. DVT prophylaxis -eliquis Disposition; -sent message to CM. Pt ready to return to snf when insurance approval and transportation is arranged. Currently waiting on Pre-Cert before return. Assessment and treatment plan made in conjunction with Daphne South MD documented in this encounter Plan of Treatment Not on file documented as of this encounter Visit Diagnoses Not on filedocumented in this encounter
--- OUTSIDE RECORDS SUMMARY | 2025-03-15 11:19 | XMS_ITS | Encounter Summary ---
Author Organization [employer] ([place], [place], [place], [place]) Address [address] [place] [address] Care Team Providers Care Quantitative Analyst Developer Name Role Phone Unavailable Primary Care Provider Unavailkatharine e Encounter Details Date Type Department Care Team (Late st Contact Info) Description 12/24/2021 Transcribed Document [facility] [place] [facility] [place] [address] ProviderDario MD [address], [place] [id number] Social History Tobacco Use Types Packs/Day Years Used Date Smoking Tobacco: Never Assessed Sex and Gender Information Value Date Recorded Sex Assigned at Not on file Legal Sex Male 5:38 PM CDT Gender Identity Not on file Sexual Orientation Not on file documented as of this encounter Miscellaneous Notes * Cerner Conversion Note - Historical ProviderMD - 12/24/2021 6:03 PM CDT Evaluation, Occupational Therapy Entered On: 12/26/2021 16:19 EDT Performed On: 12/26/2021 14:40 EDT by WILIAM MENDOZA OT Student General Information, OT Visit Type, OT : Initial evaluation Patient Orders : Order Date Order Ordering 12/24/2021 18:03 OT Evaluation and Treatment Ordered By: INGRID ELLSWORTH PA-FAM Active Diagnoses : 12/24/2021 12:00 Seizure 12/24/2021 12:00 Seizure - Recurrent Therapy Diagnosis, OT : seen for decrease in I with ADLs due to seizures and general debilitation Admission Date : 12/24/2021 13:29 Co-treated by, OT : Other: PT student Personal Devices : Personal Devices No Devices Recorded Assistive Devices : Assistive Devices No Devices Recorded Precautions in Place : Seizure precautions General Information Comment, OT : hx of seizures, DM II, HTN, HLD, functional quadraplegia, R BKA WILIAM MENDOZA OT Student - 12/26/2021 16:00 EDT General Status Patient Received Status : Supine in bed Treatment Start Time : 12/26/2021 14:10 EDT Patient Left Status : Supine in bed, RN/PCT informed, All needs met and within reach RN/PCT Informed Comment : RN ok/d eval Treatment End Time : 12/26/2021 14:40 EDT Treatment Time : 30 Minute(s) WILIAM MENDOZA OT Student - 12/26/2021 16:00 EDT History and Environment, OT Living Situation, Therapy : Home Patient Lives With : Alone Persons Assisting Patient at Home : Alone Professional Skilled Services : Physical Therapy Persons Providing Information : Patient Home Equipment, Therapy : Bed, Shower Equipment, Wheelchair Bed : Bed, [facility] Shower Equipment : Shower bench, without back Wheelchair : Wheelchair, standard Home Setup : One story Stairs : Yes Stair Location(s) : Outside Outside Stairs, Number of Steps : 1 Railing Outside : No Ramp : No WILIAM MENDOZA OT Student - 12/26/2021 16:00 EDT WILIAM MENDOZA OT Student - 12/26/2021 16:00 EDT Prior LOF Bed Mobility : Independent Prior LOF Upper Body Dressing, OT : Independent Prior LOF Lower Body Dressing, OT : Independent Prior LOF Toileting : Independent Prior LOF Transfer : Assist needed Prior LOF Grooming, OT : Independent Prior LOF for IADLs, OT : Independent WILIAM MENDOZA OT Student - 12/26/2021 16:00 EDT Prior LOF Bathing, OT : Independent LIANG HAWLEY OTR/L - 12/26/2021 16:20 EDT Upper Extremity Right UE Active ROM : WFL Left UE Active ROM : Impaired Left UE Active Assist ROM : WFL WILIAM MENDOZA OT Student - 12/26/2021 16:00 EDT Right Upper Extremity MMT Shoulder Flexion 0-180 : 4/good Shoulder Extension 0-60 : 4/good Shoulder Abduction 0-180 : 4/good Shoulder Adduction 0-180 : 4/good Shoulder Internal Rotation 0-90 : 4/good Shoulder External Rotation 0-90 : 4/good Elbow Flexion 0-150 : 4/good Elbow Extension 0-0 : 4/good Wrist Flexion 0-80 : 4/good Wrist Extension 0-70 : 4/good Forearm Pronation 0-70 : 4/good Forearm Supination 0-85 : 4/good Ulnar Deviation 0-45 : 4/good RadialDeviation 0-20 : 4/good WILIAM MENDOZA OT Student - 12/26/2021 16:00 EDT Left Upper Extremity MMT Shoulder Flexion 0-180 : 3+/fair Shoulder Extension 0-60 : 3+/fair Shoulder Abduction 0-180 : 3+/fair Shoulder Adduction 0-180 : 3+/fair Shoulder Internal Rotation 0-90 : 3+/fair Shoulder External Rotation 0-90 : 3+/fair Elbow Flexion 0-150 : 3+/fair Elbow Extension 0-0 : 3+/fair Wrist Flexion 0-80 : 3+/fair Wrist Extension 0-70 : 3+/fair Forearm Pronation 0-70 : 3+/fair Forearm Supination 0-85 : 3+/fair Ulnar Deviation 0-45 : 3+/fair RadialDeviation 0-20 : 3+/fair WILIAM MENDOZA OT Student - 12/26/2021 16:00 EDT Self Care/Home Management, OT Self Feeding Assist Level, OT : Supervision or set-up Grooming Assist Level, OT : Supervision or set-up Bathing Assist Level, OT : Assist, moderate Upper Body Dressing Assist Level, OT : Supervision or set-up Lower Body Dressing Assist Level, OT : Assist, moderate Toileting Assist Level : Assist, moderate Toilet Transfer Assist Level : Assist, maximal WILIAM MENDOZA OT Student - 12/26/2021 16:00 EDT Functional Mobility Mobility Grid Supine to Sit : Rehab Maximal assistance (Comment: x2 [WILIAM MENDOZA OT Student - 12/26/2021 16:00 EDT] ) Sit to Supine : Rehab Maximal assistance (Comment: x2 [WILIAM MENDOZA OT Student - 12/26/2021 16:00 EDT] ) WILIAM MENDOZA OT Student - 12/26/2021 16:00 EDT Cognition Assessment, OT Orientation : Oriented x 4 WILIAM MENDOZA OT Student - 12/26/2021 16:00 EDT Indication Assessment, OT Occupational Therapy Indicated : Yes Problem List, OT : Impaired, bed mobility, Impaired, activities daily living, Impaired, coordination/proprioception, Impaired functional mobility, Impaired, sitting balance, Impaired, standing balance Potential Barriers, OT : None evident Rehabilitation Potential, OT : Good WILIAM MENDOZA OT Student - 12/26/2021 16:00 EDT Plan of Care, OT OT Tx Plan/Goals Established w Patient : Yes OT Frequency Rehab : Five days per week OT Duration Rehab : Fourteen days OT Treatments Planned : Activities of daily living, Balance training, Functional mobility training, Therapeutic activities WILIAM MENDOZA OT Student - 12/26/2021 16:00 EDT Ornamenter Hand Goals, OT Grooming LTG Grid Goal #1 Activity : Grooming Cues : No cues Assist : Assist, minimal Date to Meet : 01/09/2022 EDT Goal Status : Initial goal Comment : sitting EOB WILIAM MENDOZA OT Student - 12/26/2021 16:00 EDT Toilet Transfer LTG Grid Goal #1 Activity : Toilet Transfer, Stand Pivot Sit Cues : No cues Assist : Assist, minimal Equipment : Keyshawn walker Date to Meet : 01/09/2022 EDT Goal Status : Initial goal WILIAM MENDOZA OT Student - 12/26/2021 16:00 EDT Bed Mobility/ Bed Transfer LTG Grid Goal #1 Activity : Bed Mobility, Supine to Sit Cues : No cues Assist : Assist, minimal Date to Meet : 01/09/2022 EDT Goal Status : Initial goal WILIAM MENDOZA OT Student - 12/26/2021 16:00 EDT Wheelchair Transfer LTG Grid Goal #1 Activity : Wheelchair, Standard, Sliding Board Cues : Minimum verbal cues Assist : Assist, minimal Date to Meet : 01/09/2022 EDT Goal Status : Initial goal WILIAM MENDOZA OT Student - 12/26/2021 16:00 EDT Treatment Note Subjective Comment : Pt was agreeable during eval Patient's Response to Treatment : Pt tolerated eval well Additional Objective Information : Pt was found supine in bed. Pt was oriented x4. Pt was max A x2 for supine to sit. Pt sat EOB with poor sitting balance and max A. Pt was unaware of lean when sitting EOB. Pt was max A x2 for sit to supine. Pt was WFL for AAROM on LE and WFL for AROM on R UE. Pt was left supine in bed with all needs met and call light within reach. WILIAM MENDOZA OT Student - 12/26/2021 16:00 EDT Assessment : Pt would benefit from OT services during hospitalization OTR/L has reviewed and agrees with documentation LIANG HAWLEY OTR/Silva - 12/26/2021 16:20 EDT Plan for Treatment : see goals WILIAM MENDOZA OT Student - 12/26/2021 16:00 EDT Pain Assessment Pain Scaled Used : 0-10 Pain scale Pain Score Pre-Intervention : 0 WILIAM MENDOZA OT Student - 12/26/2021 16:00 EDT Image 1 - Images currently included in the form version of this document have not been included in the text rendition version of the form. Anticipated Discharge Needs, OT/PT Anticipated Discharge to : Unit, rehabilitation WILIAM MENDOZA OT Student - 12/26/2021 16:00 EDT [place] OT Charges OT Eval Moderate Complexity : 1 OT Ther Activities Ea 15 Min : 1 LIANG HAWLEY OTR/Silva - 12/26/2021 16:24 EDT documented in this encounter Plan of Treatment Not on file documented as of this encounter Visit Diagnoses Not on filedocumented in this encounter
--- OUTSIDE RECORDS SUMMARY | 2025-03-15 11:19 | XMS_ITS | Encounter Summary ---
Author Organization [employer] ([place], [place], [place], [place]) Address [address] [place] [address] Care Team Providers Care Hat Mender Name Role Phone Unavailable Primary Care Provider Unavailabl e Encounter Details Date Type Department Care Team (Late st Contact Info) Description 12/24/2021 Transcribed Document [facility] [place] Medicine [facility] [place] [address] ProviderDario MD [address], [place] [address] Social History Tobacco Use Types Packs/Day Years Used Date Smoking Tobacco: Never Assessed Sex and Gender Information Value Date Recorded Sex Assigned at Not on file Legal Sex Male 5:38 PM CDT Gender Identity Not on file Sexual Orientation Not on file documented as of this encounter Miscellaneous Notes * Cerner Conversion Note - Historical ProviderMD - 12/24/2021 7:30 PM CDT ED Assessment Entered On: 12/24/2021 20:01 EDT Performed On: 12/24/2021 19:30 EDT by Bethany Gunn RN-PATIENT CARE BEDSIDE NON-EXEMPT ED Quick Look Assessment Level of Consciousness : Alert, Awake Affect/Behavior : Appropriate, Calm, Cooperative Orientation : Oriented x 4 Skin Temperature : Warm Skin Description : Normal for ethnicity Bethany Gunn RN-PATIENT CARE BEDSIDE NON-EXEMPT - 12/24/2021 19:59 EDT ED General-Functional Assess Information Obtained From : Patient, Other: caregiver Communication Barrier : None Primary Language : Malagasy Any Spiritual/Cultural Needs or Requests : No Currently in Unsafe Situation : No Bethany Gunn RN-PATIENT CARE BEDSIDE NON-EXEMPT - 12/24/2021 19:59 EDT ED Psychosocial Assessment Affect/Behavior : Appropriate, Calm, Cooperative Bethany Gunn RN-PATIENT CARE BEDSIDE NON-EXEMPT - 12/24/2021 19:59 EDT Social Habits Smoking Status : Former smoker, quit more than 30 days ago Smokeless Tobacco Status : Never Desires Tobacco Cessation Calc : 0 Bethany Gunn RN-PATIENT CARE BEDSIDE NON-EXEMPT - 12/24/2021 19:59 EDT Social History (As Of: 12/24/2021 20:01:36 EDT) Tobacco: Use in Last 12 Months: [...] Cardiovascular Assessment WDL : WDL with exceptions Cardiovascular Symptoms : Other: tachycardia Nail Bed Color : [place] Chest Pain : No Detailed Cardiovascular Assessment : Open Bethany Gunn RN-PATIENT CARE BEDSIDE NON-EXEMPT - 12/24/2021 19:59 EDT Cardiovascular ASMT, Detailed Cardiac Rhythm : Sinus tachycardia Cardiac Rhythm Comment : frequent PVCs Bethany Gunn RN-PATIENT CARE BEDSIDE NON-EXEMPT - 12/24/2021 19:59 EDT Respiratory Respiratory Assessment WDL : WDBethany Lozano RN-PATIENT CARE BEDSIDE NON-EXEMPT - 12/24/2021 19:59 EDT Oxygen Therapy Oxygen Therapy Mode : Nasal cannula Bethany Gunn RN-PATIENT CARE BEDSIDE NON-EXEMPT - 12/24/2021 19:59 EDT Gastrointestinal ED Gastrointestinal Assessment WDL : WDBethany Lozano RN-PATIENT CARE BEDSIDE NON-EXEMPT - 12/24/2021 19:59 EDT Genitourinary Assessment, ED Genitourinary Assessment WDL : WDL with patient specific variances Urinary Elimination : Indwelling catheter Bethany Gunn RN-PATIENT CARE BEDSIDE NON-EXEMPT - 12/24/2021 19:59 EDT Musculoskeletal Musculoskeletal Assessment WDL : WDL with patient specific variances Patient's Normal Musculoskeletal Variance(s) : right lower leg amputation Bethany Gunn RN-PATIENT CARE BEDSIDE NON-EXEMPT - 12/24/2021 19:59 EDT Integumentary Assessment Integumentary Assessment WDL : WDL Bethany Gunn RN-PATIENT CARE BEDSIDE NON-EXEMPT - 12/24/2021 19:59 EDT Neurologic ASMT, ED Neurologic Assessment WDL : WDL with exceptions Neurological Symptoms : Headache Bethany Gunn RN-PATIENT CARE BEDSIDE NON-EXEMPT - 12/24/2021 19:59 EDT Pain Assessment Pain Assessment : Initial assessment Pain Scale Used : 0-10 Scale Location : Headache, frontal Bethany Gunn RN-PATIENT CARE BEDSIDE NON-EXEMPT - 12/24/2021 19:59 EDT Pain Scale Intensity : 8 Bethany Gunn RN-PATIENT CARE BEDSIDE NON-EXEMPT - 12/24/2021 19:59 EDT Image 4 - Images currently included in the form version of this document have not been included in the text rendition version of the form. documented in this encounter Plan of Treatment Not on file documented as of this encounter Visit Diagnoses Not on filedocumented in this encounter
--- OUTSIDE RECORDS SUMMARY | 2025-03-15 11:19 | XMS_ITS | Encounter Summary ---
Author Organization [employer] ([place], [place], [place], [place]) Address [address] [place] [address] Care Team Providers Care Baggage Clerk Name Role Phone Unavailable Primary Care Provider Unavailabl e Encounter Details Date Type Department Care Team (Late st Contact Info) Description 01/01/2022 Transcribed Document [facility] [place] Family Medicine [address] [place] [address] ProviderDario MD [address], [place] [id number] Social History Tobacco Use Types Packs/Day Years Used Date Smoking Tobacco: Never Assessed Sex and Gender Information Value Date Recorded Sex Assigned at Not on file Legal Sex Male 5:38 PM CDT Gender Identity Not on file Sexual Orientation Not on file documented as of this encounter Miscellaneous Notes * Cerner Conversion Note - Historical ProviderMD - 01/01/2022 4:26 PM CDT Nursing Discharge Summary Entered On: 01/01/2022 16:26 EDT Performed On: 01/01/2022 16:26 EDT by Juani Mercer RN Discharge Documentation Discharge Date/Time : 01/01/2022 19:00 EDT Patient Disposition, General : Discharge Discharge To : Rehabilitation unit/facility Name of Receiving Facility/Provider : Hailee Gonzalez Mode Of Departure, General Discharge : Ambulance/ALS, Ambulance/BLS Personal Belongings With Patient : Yes Education Comment : POC, meds, safety, pain mgmt Juani Mercer RN - 01/01/2022 16:26 EDT Electronically signed by Anthony [facility] Conversion Metal Window Frame Maker Cerner at 12/29/2022 4:56 PM CDT documented in this encounter Plan of Treatment Not on file documented as of this encounter Visit Diagnoses Not on filedocumented in this encounter
--- OUTSIDE RECORDS SUMMARY | 2025-03-15 11:19 | XMS_ITS | Encounter Summary ---
Author Organization [employer] ([place], [place], [place], [place]) Address [address] [place] [address] Care Team Providers Care General Production Worker Name Role Phone Unavailable Primary Care Provider Unavailabl e Encounter Details Date Type Department Care Team (Late st Contact Info) Description 12/31/2021 Transcribed Document [facility] Family Medicine [facility] [place] [address] ProviderDario MD [address], [place] [id number] Social History Tobacco Use Types Packs/Day Years Used Date Smoking Tobacco: Never Assessed Sex and Gender Information Value Date Recorded Sex Assigned at Not on file Legal Sex Male 5:38 PM CDT Gender Identity Not on file Sexual Orientation Not on file documented as of this encounter Miscellaneous Notes * Cerner Conversion Note - Historical ProviderMD - 12/31/2021 3:09 PM CDT On Going Discharge Planning Entered On: 12/31/2021 15:10 EDT Performed On: 12/31/2021 15:09 EDT by CINTHYA RIVERA, RN-Superintendent OperatingWindow [place]er Progress Note Discharge Arrangements : Patient Post-Acute [...] Condition of Patient Patient Discharge Goal : half-way facility Were Referrals Sent to Post Acute Providers : Yes Certification for Post-Acute Care Initiated : 12/30/2021 EDT CINTHYA RIVERA, JESSEE-Superintendent Operating - 12/31/2021 15:09 EDT Narrative Progress Note Narrative Progress Note : HD#7 RRS MOD Per F.C. liaison, no precert obtained for 12.31. CM rescheduled ems for 01.01@1900. BS nurse and attending updated. Historical Progress Note : updated F.C. with pt/ot notes via [facility]ave[facility] in order to facilitate precert. CINTHYA RIVERA, RN-Superintendent Operating - 12/31/21 08:46:17 HD#6 ELOS-4 RAR-moderate CM sent PT/OT updates to [facility] for insurance precert approval. CM rescheduled patient' s [facility] ambulance transport Patient is medically ready for discharge. CM sent updates to [facility]. [facility] [place] intiated insurance precert today. D[facility] [place] when insurance precert is approved. [facility] ambulance scheduled tentively for 6pm om 12/30 in case insurance precert is approved. Vaishnavi Cunha V Rubber Worker [facility] - 12/30/21 13:29:12 HD#6 ELOS-4 RAR-moderate CM sent PT/OT updates to [facility] for insurance precert approval. CM rescheduled patient's [facility] ambulance transport to Wednesday, 12/31 at 7pm. Per Lisandar with [facility], transport time is ok since he is returning there. If precert isn't approved, CM will need to reschedule transportation. DCP-[facility] [place] pending insurance precert approved. [facility] ambulance scheduled tentively for 7pm om 12/31 in case insurance precert is approved. Vaishnavi Cunha V Rubber Worker [facility] - 12/30/21 13:33:56 Patient is medically ready for discharge. CM sent updates to [facility]. [facility] [place] intiated insurance precert today. DCP[facility] [place] when insurance precert is approved. [facility] scheduled tentively for 6pm om 12/30 in case insurance precert is approved. Vaishnavi Cunha V Rubber Worker [facility] - 12/29/21 12:04:25 Patient is medically ready for discharge. Cm sent updates to [facility]. CM sent message to Lisandra from [facility] asking for precert with insurance to be started as soon as possible. Cm scheduled [facility] for 6 pm 12/29 if bed is available and precert obtained. [facility] will need to be changed if patient is not approved to go. CM will continue to follow. CALIXTO MCCABE, Rubber Worker-Radiation Control Worker - 12/28/21 13:59:37 CINTHYA RIVERA, RN-Superintendent Operating - 12/31/2021 15:09 EDT Electronically signed by Miguel Ángel Cruz Conversion Biodiesel Product Manager Cerner at 12/29/2022 4:47 PM CDT documented in this encounter Plan of Treatment Not on file documented as of this encounter Visit Diagnoses Not on filedocumented in this encounter
--- OUTSIDE RECORDS SUMMARY | 2025-03-15 11:19 | XMS_ITS | Encounter Summary ---
Author Organization [employer] ([place], [place], [place], [place]) Address [address] [place] [address] Care Team Providers Care Keller Machine Operator Name Role Phone Unavailable Primary Care Provider Unavailabl e Encounter Details Date Type Department Care Team (Late st Contact Info) Description 12/24/2021 Transcribed Document [facility] [place] [facility] [place] [address] ProviderDario MD [address], [place] [id number] Social History Tobacco Use Types Packs/Day Years Used Date Smoking Tobacco: Never Assessed Sex and Gender Information Value Date Recorded Sex Assigned at Not on file Legal Sex Male 5:38 PM CDT Gender Identity Not on file Sexual Orientation Not on file documented as of this encounter Miscellaneous Notes * Cerner Conversion Note - Historical ProviderMD - 12/24/2021 4:27 PM CDT DATE OF CONSULTATION: 12/24/2021 NEUROLOGY CONSULTATION REASON FOR CONSULT: Seizures. HISTORY OF PRESENT ILLNESS: This is a 66-year-old male with a known history of seizure disorder as well as hypertension, hyperlipidemia, diabetes who was transferred today from [facility] for recurrent seizures. The patient himself is a vague historian, but does provide the history that he was admitted to [facility] in October for intractable seizures and started on 2 new antiepileptic medications at that time. He could not tell me which antiepileptic medications were new, although I believe that they are Keppra and Dilantin. He apparently has been on Lamictal for a longer period of time. He tells me he has had seizures for 8-9 years and follows with a neurologist in [place] whom I believe is named Dr. Carter. He could not tell me why he has seizures, although apparently this neurologist had speculated that it may be due to head trauma. Apparently, he has been seen several times within the last 1-2 weeks for seizures in the emergency room and had further seizures today and was subsequently transferred here. Staff tells me that when they rolled him to check for sacral wound he had an episode concerning for seizure here described as unresponsiveness with shaking and jerking of both upper extremities. This lasted about 5 minutes, and he was given 1 mg of Ativan which stopped the episode. He has had no further episodes since transfer here. Recently, he has been residing at [facility] which is a rehab facility following his admission to [facility] in October. He tells me that typically he lives at home fairly independently, although does have home health services. Presently, he is denying headache or any other significant complaints. 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 HOME MEDICATIONS: 1. Insulin. 2. Prednisone. 3. Keppra 1500 mg twice a day. 4. Tylenol as needed. 5. Dilantin 100 mg 3 times a day. 6. Polyethylene glycol. 7. Baclofen. 8. Seroquel. 9. Ferrous sulfate. 10. Eliquis 2.5 mg twice a day. 11. Lamictal 200 mg twice a day. 12. Protonix. 13. Ascorbic acid. 14. Ativan as needed. 15. Gabapentin. 16. Docusate. SOCIAL HISTORY: Currently, he is residing in a nursing facility but typically will live at home independently. He denies any current use of alcohol, tobacco, or illicit drugs. FAMILY HISTORY: Noncontributory at this time. REVIEW OF SYSTEMS: He denies known fever or chills. No headaches. No change in speech or vision. No new focal numbness, weakness, or tingling. He reports chronic leg weakness after some back surgery in the past. No chest pain or shortness of breath. No nausea or vomiting. No bowel or bladder complaints. No recent falls or trauma. No depression or anxiety. Otherwise, complete review of systems is negative. PHYSICAL EXAMINATION: GENERAL: He is awake and alert. He is slow to respond, but answers questions appropriately and follows commands well. He is a vague historian, although memory is fairly intact. No attention deficits. VITAL SIGNS: Blood pressure 140/83, heart rate 104, temperature 97.9. CARDIAC: Normal sinus rhythm. LUNGS: Respirations are not labored. EXTREMITIES: Again, there is a right [id number] amputation. Left leg does not show any clubbing, cyanosis, or edema. NEUROLOGIC EXAMINATION: Speech is slow, but fluent. He is somewhat slow to respond at times, but does respond appropriately. No aphasia or dysarthria. Cranial nerves II through XII are intact including visual butt. Funduscopic exam was deferred due to small pupils. There is no nuchal rigidity. Motor strength is 5/5 in both upper extremities, 4/5 in the left lower extremity. He has good movement of the stump on the right. Muscle bulk and tone are normal. No abnormal movements. Sensation intact to light touch. No significant ataxia was noted. Deep tendon reflexes were not assessed in this setting. I did not ambulate the patient as he is nonambulatory at baseline. DIAGNOSTIC STUDIES: IMAGING STUDIES: No intracranial imaging has been performed here. The transferring emergency room sent no documentation, and therefore, I do not know what was done there. LABORATORY RESULTS: Basic labs here thus far are notable for white count 12.2, platelets 413, hemoglobin 12.2. Sugar 205. ASSESSMENT AND PLAN: A 66-year-old male with a known history of seizures, admitted with recurrent seizures over the last 1-2 weeks. Apparently, he was recently hospitalized at [facility] with intractable seizures resulting in the addition of antiepileptic medications which may have been Keppra and Dilantin. Etiology for his increased seizure frequency is unclear at present, although certainly an underlying infection is possible. He will be admitted for further workup and for now would recommend to continue his usual doses of Lamictal, Keppra, and Dilantin. A Dilantin level has been ordered. We will plan for continuous EEG monitoring to start tomorrow, and I will also check a routine head CT this evening. Any further recommendations will be based on the clinical course and the results of the continuous EEG. Plan was discussed at length with the patient as well as a physician ambulance assistant with the admitting team. Neurology will continue to follow closely. /[id number] MD KIYA Monique/ALECIA / KIYA / DARIO /[id number] documented in this encounter Plan of Treatment Not on file documented as of this encounter Visit Diagnoses Not on filedocumented in this encounter
--- OUTSIDE RECORDS SUMMARY | 2025-03-15 11:19 | XMS_ITS | Encounter Summary ---
Author Organization [employer] ([place], [place], [place], [place]) Address [address] [place] [address] Care Team Providers Care Cryptoanalysis Teacher Name Role Phone Unavailable Primary Care Provider Unavailabl e Encounter Details Date Type Department Care Team (Late st Contact Info) Description 01/01/2022 Transcribed Document [facility] Family Medicine [address] [place] [address] ProviderDario MD [address], [place] [id number] Social History Tobacco Use Types Packs/Day Years Used Date Smoking Tobacco: Never Assessed Sex and Gender Information Value Date Recorded Sex Assigned at Not on file Legal Sex Male 5:38 PM CDT Gender Identity Not on file Sexual Orientation Not on file documented as of this encounter Miscellaneous Notes * Cerner Conversion Note - Historical ProviderMD - 01/01/2022 2:00 AM CDT Labor Utilization Superintendent Details Entered On: 01/01/2022 1:24 EDT Performed On: 01/01/2022 2:00 EDT by Nikki Farley Non Emp [...] No Nikki Farley Non Emp RN - 01/01/2022 1:24 EDT Electronically signed by Olena Cruz Conversion Gasoline Locomotive Crane Operator Cerner at 12/29/2022 4:40 PM CDT documented in this encounter Plan of Treatment Not on file documented as of this encounter Visit Diagnoses Not on filedocumented in this encounter
--- OUTSIDE RECORDS SUMMARY | 2025-03-15 11:19 | XMS_ITS | Encounter Summary ---
Author Organization [employer] ([place], [place], [place], [place]) Address [address] [place] [address] Care Team Providers Care Electrician Helper Powerhouse Name Role Phone Unavailable Primary Care Provider Unavailabl e Encounter Details Date Type Department Care Team (Late st Contact Info) Description 12/28/2021 Transcribed Document [facility] Family Medicine [facility] [place] [address] ProviderDario MD [address], [place] [id number] Social History Tobacco Use Types Packs/Day Years Used Date Smoking Tobacco: Never Assessed Sex and Gender Information Value Date Recorded Sex Assigned at Not on file Legal Sex Male 5:38 PM CDT Gender Identity Not on file Sexual Orientation Not on file documented as of this encounter Miscellaneous Notes * Cerner Conversion Note - Historical ProviderMD - 12/28/2021 11:49 AM CDT DATE OF SERVICE: 12/28/2021 REPORT TYPE: EEG REFERRING PHYSICIAN: Melanie Mcmahon MD REPORT TITLE: Video Electroencephalogram Report STUDY DURATION: 4 hours 15 minutes. HISTORY: This is a 66-year-old man, being evaluated for recurrent seizures. EEG VIDEO MONITORING METHODOLOGY: Time-locked EEG-video monitoring was performed using the 32-channel [employer] monitoring system. The seizure detection computer was used for detection of ictal discharges (subclinical and clinical), interictal discharges, and to record ictal events that were documented by depression of the event button in the patient's room. Analyses of the monitoring data were performed using the following techniques: Review of the relevant EEG-video data. Review of events detected by the computer system in detail. Review of clinical seizures, with both detailed review of EEG and video and playback using multiple montages. A variety of referential and bipolar montages were used. CLINICAL AND EEG ANALYSIS: There was no event reported during the period of monitoring. TIME SAMPLES: The recording was reviewed. During wakefulness, 8 to 8.5 Hz activity was seen posteriorly intermixed with lower amplitude faster activity in the beta range with a wider distribution. 4 to 5 Hz theta waves are noted at F7-T7 and less frequently at F8-T8. Sleep was recorded with the appearance of sleep spindles in both hemispheres. SPIKE DETECTION: The spike detection program was activated during the period of monitoring and revealed no abnormal paroxysmal activity. EEG DIAGNOSES: This is an abnormal video EEG study because of: 1. Focal slow wave activity seen at F7-T7 and less prominently independently at F8-T8. 2. Intermittent slowing of the background. CLINICAL INTERPRETATION: The patient had no clinical event during the period of monitoring. EEG recordings showed no epileptiform abnormality. Slow wave activity was noted in the temporal electrodes, more commonly on the left, suggestive of focal cerebral dysfunction in the temporal regions, more prominent on the left. Intermittent slowing of the background was noted suggestive of mild diffuse cerebral dysfunction. /[id number] MD TERRENCE Dong/AQ / TAF / MODL /[id number] Electronically signed by [facility] Conversion Guinea Pig Breeder Cerner at 12/29/2022 4:36 PM CDT documented in this encounter Plan of Treatment Not on file documented as of this encounter Visit Diagnoses Not on filedocumented in this encounter
--- OUTSIDE RECORDS SUMMARY | 2025-03-15 11:19 | XMS_ITS | Encounter Summary ---
Author Organization [employer] ([place], [place], [place], [place]) Address [address] [place] [address] Care Team Providers Care Certified Personal Finance Counselor Name Role Phone Unavailable Primary Care Provider Unavailabl e Encounter Details Date Type Department Care Team (Late st Contact Info) Description 12/28/2021 Transcribed Document [facility] Family Medicine [facility] [place] [address] ProviderDario MD [address], [place] [id number] Social History Tobacco Use Types Packs/Day Years Used Date Smoking Tobacco: Never Assessed Sex and Gender Information Value Date Recorded Sex Assigned at Not on file Legal Sex Male 5:38 PM CDT Gender Identity Not on file Sexual Orientation Not on file documented as of this encounter Miscellaneous Notes * Cerner Conversion Note - Dario ProviderMD - 12/28/2021 8:41 AM CDT DATE OF SERVICE: 12/27/2021 REPORT TYPE: EEG REFERRING PHYSICIAN: Melanie Mcmahon MD REPORT TITLE: Video Electroencephalogram Report STUDY DURATION: One day. HISTORY: This is a 66-year-old man, being evaluated for recurrent seizures. EEG VIDEO MONITORING METHODOLOGY: Time-locked EEG-video monitoring was performed using the 32-channel [employer] monitoring system. The seizure detection computer was [...] SAMPLES: The recording was reviewed. During wakefulness, 9 to 10 Hz activity is seen posteriorly. Lower amplitude fast activity in the beta range is noted with a wider distribution. 4 to 5 Hz theta waves and occasional higher amplitude 2 to 3 Hz delta waves are noted at F7-T7 and less frequently independently at F8-T8. Slow waves are seen more commonly in both hemispheres during periods of drowsiness. During sleep, well-formed sleep spindles are seen in both hemispheres. SPIKE DETECTION: The spike detection program was activated during the period of monitoring. Rare sharply contoured slow waves are noted at F7-T7. EEG DIAGNOSES: This is an abnormal video EEG study because of: 1. Focal slow wave activity noted at F7-T7 and independently and less prominently at F8-T8. 2. Rare sharply contoured slow waves at F7-T7. CLINICAL INTERPRETATION: The patient had no clinical event during the period of monitoring. Continuous EEG recordings showed no electrographic ictal discharge. EEG recordings showed focal slow-wave activity in the anterior temporal electrodes in both hemispheres, more prominent on the left, indicative of focal cerebral dysfunction in the anterior temporal regions, more prominent on the left. Rare sharply contoured slow waves were seen in the left anterior temporal electrodes, raising the possibility of potential epileptogenicity in the left anterior temporal region. /[id number] MD TERRENCE Dong/ALECAI / TAF / MODL /[id number] documented in this encounter Plan of Treatment Not on file documented as of this encounter Visit Diagnoses Not on filedocumented in this encounter
--- OUTSIDE RECORDS SUMMARY | 2025-03-15 11:19 | XMS_ITS | Encounter Summary ---
Author Organization [employer] ([place], [place], [place], [place]) Address [address] [place] [address] Care Team Providers Care Range Ecologist Name Role Phone Unavailable Primary Care Provider Unavailabl e Encounter Details Date Type Department Care Team (Late st Contact Info) Description 01/01/2022 Transcribed Document [facility] [place] [facility] [place] [address] ProviderDario MD [address] [place] [address] Social History Tobacco Use Types Packs/Day Years Used Date Smoking Tobacco: Never Assessed Sex and Gender Information Value Date Recorded Sex Assigned at Not on file Legal Sex Male 5:38 PM CDT Gender Identity Not on file Sexual Orientation Not on file documented as of this encounter Miscellaneous Notes * Cerner Conversion Note - Dario ProviderMD - 01/01/2022 4:27 PM CDT [facility] [place] [address] VITALY POOL :1955 Visit Time:12/24/2021 Your Visit Summary Your Care Team Admitting Physician - ROBERT CLAYTON MD-INT Attending Physician - ROBERT CLAYTON MD-INT Primary Care Physician - ROBERT CLAYTON MD-INT Referring Physician - ROBERT CLAYTON MD-INT Your Diagnosis Epilepsy, unspecified, not intractable, with status epilepticus, Epilepsy, unspecified, not intractable, with status epilepticus Seizure Seizure - Recurrent These Are Your Goals Patient Discharge Goal Patient Discharge Goal: group home facility Discharge Vitals Temperature 36.3 ??C Heart Rate (Monitored) 100 Respiratory Rate 16 Blood Pressure 115/79 What to do next Instructions From Your Care Team Discharge Activity: Discharge Activity: Activity as tolerated Diet: Discharge Diet: Resume usual diet as tolerated Follow-Up Appointments Follow Up with ROBERT CLAYTON MD-INT When Within 2 to 3 days Comments at [facility] Where: Medications What How Much When Instructions Next Dose clindamycin (clindamycin 150 mg oral capsule) 2 Capsule(s) Oral Three Times A Day Duration: 3 Day(s) lamoTRIgine (LaMICtal 100 mg oral tablet) 2.5 Tablet(s) Oral Every Morning in 7 days increase to 250 mg bid and d/ c the 200 mg qpm dose. lamoTRIgine (LaMICtal 100 mg oral tablet) 2 Tablet(s) Oral Every Evening acetaminophen (Tylenol 325 mg oral tablet) 2 Tablet(s) Oral Every 4 Hours as needed for pain albuterol (albuterol 1.25 mg/ 3 mL (0.042%) inhalation solution) 3 Milliliter(s) Nebulized Inhalation Every 2 Hours as needed for Shortness of Breath apixaban (Eliquis 2.5 mg oral tablet) 1 Tablet(s) Oral Two Times A Day ascorbic acid (Vitamin C 500 mg oral tablet) 1 Tablet(s) Oral Two Times A Day baclofen (baclofen 20 mg oral tablet) 1 Tablet(s) Oral Three Times A Day docusate (Colace 100 mg oral capsule) 1 Capsule(s) Oral Two Times A Day ferrous sulfate (ferrous sulfate 325 mg (65 mg elemental iron) oral tablet) 1 Tablet(s) Oral Two Times A Day gabapentin (Neurontin 400 mg oral capsule) 1 Capsule(s) Oral Every 8 Hours insulin glargine (Lantus 100 units/ mL subcutaneous solution) 6 Unit(s) SubCutaneous At Bedtime levETIRAcetam (Keppra 750 mg oral tablet) 2 Tablet(s) Oral Two Times A Day LORazepam (Ativan 2 mg/ mL injectable solution) 1 Milligram(s) IntraMuscular Every 4 Hours as needed for Seizures magnesium hydroxide (Milk of Magnesia 8% oral suspension) 30 Milliliter(s) Oral At Bedtime as needed for constipation pantoprazole (Protonix 40 mg oral delayed release tablet) 1 Tablet(s) Oral Two Times A Day phenytoin (Dilantin Infatabs 50 mg oral tablet, chewable) 2 Tablet(s) Oral Three Times A Day polyethylene glycol 3350 (MiraLax oral powder for reconstitution) 17 Gram(s) Oral Every Day QUEtiapine (SEROquel 50 mg oral tablet) 1 Tablet(s) Oral Every 8 Hours Take your medications faithfully. Do NOT skip medication. Do NOT stop taking medications without the direction of a physician. Carry a list of your medications with you at all times, and take this medication list with you to your first follow up visit. Report any side effects. Avoid herbal remedies unless discussed with your physician. As part of your treatment plan, your physician may have prescribed a limited course of a controlled substance. This medication may be given to help people with moderate or severe pain or for other medical conditions, but there are risks involved with treatment. Common side effects may include nausea, constipation, drowsiness, sweating, itching, dry mouth, and rash. More serious side effects may include cognitive and motor impairment, like problems with thinking, concentrating, alertness, and movement (e.g. slowed reflexes), and driving and operating heavy machinery can be dangerous. It is important for you to talk to your physician if you have these side effects or questions. These controlled substances can produce physical dependence and be habit-forming if taken for an extended period of time, which means that the body has gotten used to them and may experience withdrawal symptoms if they are abruptly stopped. Withdrawal symptoms can include runny nose, sweating, goose bumps, diarrhea, abdominal cramping, rapid heartbeat, difficulty sleeping, and nervousness. Please dispose of unused and medications per your retail pharmacy guidance. Allergies Lortab codeine Immunizations This Visit No Immunizations Found Education Materials Seizure, Adult A seizure is a sudden burst of abnormal electrical and chemical activity in the brain. Seizures usually last from 30 seconds to 2 minutes. What are the causes? Common causes of this condition include: ??? Fever or infection. ??? Problems that affect the brain. These may include: ? A brain or head injury. ? Bleeding in the brain. ? A brain tumor. ??? Low levels of blood sugar or salt. ??? Kidney problems or liver problems. ??? Conditions that are passed from parent to child (are inherited). ??? Problems with a substance, such as: ? Having a reaction to a drug or a medicine. ? Stopping the use of a substance all of a sudden (withdrawal). ??? A stroke. ??? Disorders that affect how you develop. Sometimes, the cause may not be known. What increases the risk? Having someone in your family who has epilepsy. In this condition, seizures happen again and again over time. They have no clear cause. ??? Having had a tonic???clonic seizure before. This type of seizure causes you to: ? Tighten the muscles of the whole body. ? Lose consciousness. ??? Having had a head injury or strokes before. ??? Having had a lack of oxygen at . What are the signs or symptoms? There are many types of seizures. The symptoms vary depending on the type of seizure you have. Symptoms during a seizure ??? Shaking that you cannot control (convulsions) with fast, jerky movements of muscles. ??? Stiffness of the body. ??? Breathing problems. ??? Feeling mixed up (confused). ??? Staring or not responding to sound or touch. ??? Head nodding. ??? Eyes that blink, flutter, or move fast. ??? Drooling, grunting, or making clicking sounds with your mouth ??? Losing control of when you pee or poop. Symptoms before a seizure ??? Feeling afraid, nervous, or worried. ??? Feeling like you may vomit. ??? Feeling like: ? You are moving when you are not. ? Things around you are moving when they are not. ??? Feeling like you saw or heard something before (d??j?? vu). ??? Odd tastes or smells. ??? Changes in how you see. You may see flashing lights or spots. Symptoms after a seizure ??? Feeling confused. ??? Feeling sleepy. ??? Headache. ??? Sore muscles. How is this treated? If your seizure stops on its own, you will not need treatment. If your seizure lasts longer than 5 minutes, you will normally need treatment. Treatment may include: ??? Medicines given through an IV tube. ??? Avoiding things, such as medicines, that are known to cause your seizures. ??? Medicines to prevent seizures. ??? A device to prevent or control seizures. ??? Surgery. ??? A diet low in carbohydrates and high in fat (ketogenic diet). Follow these instructions at home: Medicines ??? Take [id number] and prescription medicines only as told by your doctor. ??? Avoid foods or drinks that may keep your medicine from working, such as alcohol. Activity ??? Follow instructions about driving, swimming, or doing things that would be dangerous if you had another seizure. Wait until your doctor says it is safe for you to do these things. ??? If you live in the [place] ask your local department of [employer] when you can drive. ??? Get a lot of rest. Teaching others ??? Teach friends and family what to do when you have a seizure. They should: ? Help you get down to the ground. ? Protect your head and body. ? Loosen any clothing around your neck. ? Turn you on your side. ? Know whether or not you need emergency care. ? Stay with you until you are better. ??? Also, tell them what not to do if you have a seizure. Tell them: ? They should not hold you down. ? They should not put anything in your mouth. General instructions ??? Avoid anything that gives you seizures. ??? Keep a seizure diary. Write down: ? What you remember about each seizure. ? What you think caused each seizure. ??? Keep all follow-up visits. Contact a doctor if: ??? You have another seizure or seizures. Call the doctor each time you have a seizure. ??? The pattern of your seizures changes. ??? You keep having seizures with treatment. ??? You have symptoms of being sick or having an infection. ??? You are not able to take your medicine. Get help right away if: ??? You have any of these problems: ? A seizure that lasts longer than 5 minutes. ? Many seizures in a row and you do not feel better between seizures. ? A seizure that makes it harder to breathe. ? A seizure and you can no longer speak or use part of your body. ??? You do not wake up right after a seizure. ??? You get hurt during a seizure. ??? You feel confused or have pain right after a seizure. These symptoms may be an emergency. Get help right away. Call your local emergency services (911 in the [place] ??? Do not wait to see if the symptoms will go away. ??? Do not drive yourself to the hospital. Summary ??? A seizure is a sudden burst of abnormal electrical and chemical activity in the brain. Seizures normally last from 30 seconds to 2 minutes. ??? Causes of seizures include illness, injury to the head, low levels of blood sugar or salt, and certain conditions. ??? Most seizures will stop on their own in less than 5 minutes. Seizures that last longer than 5 minutes are a medical emergency and need treatment right away. ??? Many medicines are used to treat seizures. Take [id number] and prescription medicines only as told by your doctor. This information is not intended to replace advice given to you by your health care provider. Make sure you discuss any questions you have with your health care provider. Document Revised: 03/07/2021 Document Reviewed: 03/07/2021 [employer] Patient Education ?? 2020 [employer]. Emergency Awareness and Preventative Care STROKE is an EMERGENCY Every Minute Counts Act FAST and Check for these signs: FACE Does the face look uneven? ARM Does one arm drift down? SPEECH Does their speech sound strange? TIME Call at any sign of stroke Stroke Risk Factors Atrial Fibrillation (irregular heartbeat) Diabetes Family history of stroke Heart Disease Heavy alcohol use High Blood Pressure High Cholesterol Physical inactivity and obesity Smoking Cigarette Smoking The facts are clear, cigarette smoking will shorten your life. Smoking can cause many illnesses along the way. As a healthcare provider, we recommend that you stop smoking. Assistance with quitting is available by contacting 4-289-JREN-NOW. This is a free resource providing counseling, support, and referral. Or you may contact your personal physician. National Suicide Prevention Lifeline: The National Suicide Prevention Lifeline is a national network of local crisis centers that provides free and confidential emotional support to people in suicidal crisis or emotional distress 24 hours a day, 7 days a week. Don't Wait! Stop a Heart Attack Before it Starts What is a heart attack? A heart attack is damage or to a part of the heart from severely decreased or lack of blood flow to the heart. Over time, arteries can become narrow from the buildup of fat and cholesterol, which is called plaque. The plaque can rupture causing a blood clot to form. When the blood clot forms, the artery can become severely narrowed or completely blocked, causing a heart attack. Heart attack is the leading cause of in the [place]. 85% of muscle damage occurs within the first 2 hours. Delay in the recognition of heart attack symptoms increases the chances of . Know the early symptoms of a heart attack: Nausea Feeling of fullness in chest Jaw Pain Pain that travels down one or both arms Fatigue/being tired Anxiety Back Pain Chest pressure, squeezing, or discomfort Shortness of breath Sweating, or a cold sweat Feeling of impending doom There are unusual signs of a heart attack, too! Women, the elderly, and diabetics may present with atypical symptoms: Fainting/dizziness Weakness Confusion Risk Factors for a Heart Attack Some heart disease risk factors, such as age and family history, cannot be changed. Others, like smoking and lack of exercise, can be changed. Smoking High Cholesterol High Blood Pressure Family History Obesity Age Gender (Males are at higher risk) Lack of Exercise Diabetes Diet Stress Excessive Alcohol Intake If you or someone you know is experiencing the signs and symptoms of a heart attack, DON???T DELAY. Call immediately and seek help. If someone collapses, perform CPR! Do not attempt to drive if you are having symptoms of heart attack. Hands-Only CPR Why Hands-Only CPR? Hands-Only CPR has been shown to be as effective as conventional CPR for cardiac arrests that occur outside of a hospital. Survival depends on immediately receiving CPR from someone nearby. How do you perform Hands-Only CPR? There are two easy steps: Call if you see a teen or adult collapse Push hard and fast in the center of the chest at a beat of 100 beats per minute. Save a life! 4 WAYS TO GET AHEAD OF SEPSIS SEPSIS is a MEDICAL EMERGENCY. Time matters! Infections put you and your family at risk for a life-threatening condition called sepsis. Sepsis is the body's extreme response to an infection. It is life-threatening, and without timely treatment, sepsis can rapidly lead to tissue damage, organ failure, and . Sepsis happens when an infection you already have-in your skin, lungs, urinary tract or somewhere else-triggers a chain reaction throughout your body. 1 PREVENT INFECTIONS Take good care of chronic conditions. Talk to your doctor about getting the recommended vaccines. 2 PRACTICE GOOD HYGIENE Wash your hands frequently. Keep cuts or open sores clean and covered until they are healed. 3 KNOW THE SYMPTOMS Confusion or disorientation Shortness of breath High heart rate Fever, shivering, or feeling very cold Extreme pain or discomfort Clammy or sweaty skin 4 ACT FAST Get medical care IMMEDIATELY if you suspect sepsis or if you have an infection that is not getting better or is getting worse. To learn more about sepsis and how to prevent infections, visit www.cdc.gov/sepsis. Test Results Laboratory or Other Results This Visit (last charted value for your 12/24/2021 visit) Hematology 01/01/2022 5:17 AM WBC: 9.3 K/uL -- Normal range between ( 3.6 and 9.5 ) RBC: 3.97 Million/uL -- Normal range between ( 4.20 and 5.70 ) Hct: 36.1 % -- Normal range between ( 40.1 and 51.0 ) Hgb: 11.3 g/dL -- Normal range between ( 13.5 and 17.3 ) Platelet Count: 279 K/uL -- Normal range between ( 163 and 369 ) MCH: 28.5 pg -- Normal range between ( 25.6 and 32.2 ) MCHC: 31.3 Gram/dL -- Normal range between ( 32.2 and 36.5 ) MCV: 90.9 fL -- Normal range between ( 79.0 and 94.8 ) Slide Review: No Eos %: 5.2 % -- Normal range between ( 0.0 and 7.0 ) Burnett #: 0.92 K/uL -- Normal range between ( 0.16 and 1.00 ) Eos #: 0.48 x10(3)/uL -- Normal range between ( 0.00 and 0.80 ) Burnett %: 9.9 % -- Normal range between ( 3.0 and 9.0 ) Baso %: 1.3 % -- Normal range between ( 0.0 and 1.5 ) Baso #: 0.12 x10(3)/uL -- Normal range between ( 0.00 and 0.20 ) RDW: 15.8 % -- Normal range between ( 11.7 and 14.9 ) Neut %: 59.9 % -- Normal range between ( 34.0 and 71.0 ) Neut #: 5.60 K/uL -- Normal range between ( 1.56 and 6.13 ) Lymph %: 22.9 % -- Normal range between ( 19.3 and 53.1 ) Lymph #: 2.13 x10(3)/uL -- Normal range between ( 1.00 and 3.90 ) MPV: 9.6 fL -- Normal range between ( 9.4 and 12.4 ) IG#: 0.07 x10(3)/uL -- Normal range between ( 0.00 and 0.05 ) IG%: 0.80 % -- Normal range between ( 0.00 and 0.60 ) 12/24/2021 4:33 PM Sed Rate Auto: 56 mm/Hr -- Normal range between ( 0 and 20 ) Microbiology 12/30/2021 1:55 PM SARS-CoV-2 (COVID19 PCR): Negative General Chemistry 01/01/2022 10:43 AM Glucose POC2: 196 mg/dL -- Normal range between ( 70 and 110 ) Device Comment 1: Notified MD RBV 01/01/2022 5:17 AM Creatinine Level: 0.50 mg/dL -- Normal range between ( 0.70 and 1.30 ) Sodium Level: 138 mmol/L -- Normal range between ( 136 and 146 ) Potassium Level: 4.2 mmol/L -- Normal range between ( 3.5 and 5.1 ) Chloride Level: 107 mmol/L -- Normal range between ( 102 and 112 ) Carbon Dioxide Level: 25 mmol/L -- Normal range between ( 21 and 32 ) Anion Gap: 10 -- Normal range between ( 9 and 20 ) Bun/Creatinine: 40.0 -- Normal range between ( 8.0 and 20.0 ) Calcium Level: 9.0 mg/dL -- Normal range between ( 8.4 and 10.1 ) eGFR : >60 mL/min/1.73m2 eGFR NonAfrican: >60 mL/min/1.73m2 Glucose Level: 131 mg/dL -- Normal range between ( 74 and 106 ) Blood Urea Nitrogen: 20 mg/dL -- Normal range between ( 7 and 22 ) 12/27/2021 0:04 AM Bilirubin Total: 0.1 mg/dL -- Normal range between ( 0.2 and 1.2 ) A/G Ratio: 0.5 -- Normal range between ( 1.1 and 2.5 ) ALT: 21 Units/Liter -- Normal range between ( 16 and 61 ) AST: 9 Units/Liter -- Normal range between ( 5 and 37 ) Globulin: 4.2 Gram/dL -- Normal range between ( 1.5 and 4.5 ) Alk Phos: 117 Units/Liter -- Normal range between ( 27 and 136 ) Magnesium Level: 1.6 mg/dL -- Normal range between ( 1.5 and 2.4 ) Phosphorus: 2.5 mg/dL -- Normal range between ( 2.5 and 4.9 ) Protein Total: 6.5 Gram/dL -- Normal range between ( 6.4 and 8.2 ) Albumin Level: 2.3 Gram/dL -- Normal range between ( 3.4 and 5.0 ) 12/25/2021 3:03 AM Hgb A1C: 6.4 % eAVG Glucose: 137 mg/dL 12/24/2021 4:33 PM CRP: 2.71 mg/dL -- Normal range between ( 0.00 and 0.30 ) Lactic Acid Level: 0.8 mmol/L -- Normal range between ( 0.4 and 2.0 ) 12/24/2021 3:27 PM Calcium Ionized: 1.22 mmol/L -- Normal range between ( 1.12 and 1.32 ) Cardiac Specific Markers 12/27/2021 0:06 AM ProBNP: 465 pg/mL -- Normal range between ( 0 and 125 ) Troponin I High Sensitivity: 4.5 pg/mL -- Normal range between ( 3.0 and 58.8 ) Endocrinology 12/28/2021 12:13 PM TSH: 0.721 mcInt Units/mL -- Normal range between ( 0.358 and 3.740 ) 12/24/2021 4:33 PM Procalcitonin: <0.25 ng/mL -- Normal range between ( 0.00 and 2.00 ) Therapeutic Drugs 12/26/2021 4:48 AM Dilantin (Phenytoin) Level: 6.2 mcg/mL -- Normal range between ( 10.0 and 20.0 ) 12/24/2021 11:01 PM Keppra: 9.0 Toxicology 12/24/2021 3:27 PM Lamotrigine Level: 4.1 Vitamin Chemistry 12/28/2021 12:13 PM Vitamin B12 Level: 729 pg/mL -- Normal range between ( 193 and 986 ) Computed Tomography 12/24/2021 4:[address] Head WO: CT Head WO Diagnostic Radiology 12/25/2021 9:39 AM CR Modified Swallowing Funct W Video: CR Modified Swallowing Funct W Video Patient Name:VITALY POOL I have received and understand this information and was given the opportunity to ask questions. Patient/Carton Catcher Name: Patient/Carton Catcher Signature: Relationship to Patient: Clinician/Hospital Carton Catcher Signature: Date: documented in this encounter Plan of Treatment Not on file documented as of this encounter Visit Diagnoses Not on filedocumented in this encounter
--- OUTSIDE RECORDS SUMMARY | 2025-03-15 11:19 | XMS_ITS | Encounter Summary ---
Author Organization [employer] ([place], [place], [place], [place]) Address [address] [place] [address] Care Team Providers Care Sourcing Coordinator Name Role Phone Unavailable Primary Care Provider Unavailabl e Encounter Details Date Type Department Care Team (Late st Contact Info) Description 12/25/2021 Transcribed Document [facility] [place] [facility] [address] [place] [address] ProviderDario MD [address] [id number] Social History Tobacco Use Types Packs/Day Years Used Date Smoking Tobacco: Never Assessed Sex and Gender Information Value Date Recorded Sex Assigned at Not on file Legal Sex Male 5:38 PM CDT Gender Identity Not on file Sexual Orientation Not on file documented as of this encounter Miscellaneous Notes * Cerner Conversion Note - Historical ProviderMD - 12/25/2021 7:24 AM CDT ED Event Note Entered On: 12/25/2021 7:24 EDT Performed On: 12/25/2021 7:24 EDT by Bethany Gunn RN-PATIENT CARE BEDSIDE NON-EXEMPT ED Event Note ED Event Date/Time : 12/25/2021 7:24 EDT ED Description of Event : report to Bethany Phelps RN, RN-PATIENT CARE BEDSIDE NON-EXEMPT - 12/25/2021 7:24 EDT documented in this encounter Plan of Treatment Not on file documented as of this encounter Visit Diagnoses Not on filedocumented in this encounter
--- OUTSIDE RECORDS SUMMARY | 2025-03-15 11:19 | XMS_ITS | Encounter Summary ---
Author Organization [employer] ([place], [place], [place], [place]) Address [address] [place] [address] Care Team Providers Care Concrete Stone Fabricating Supervisor Name Role Phone Unavailable Primary Care Provider Unavailabl e Encounter Details Date Type Department Care Team (Late st Contact Info) Description 12/25/2021 Transcribed Document [facility] [place] [facility] [place] [address] ProviderDario MD [address], [place] [id number] Social History Tobacco Use Types Packs/Day Years Used Date Smoking Tobacco: Never Assessed Sex and Gender Information Value Date Recorded Sex Assigned at Not on file Legal Sex Male 5:38 PM CDT Gender Identity Not on file Sexual Orientation Not on file documented as of this encounter Miscellaneous Notes * Cerner Conversion Note - Historical ProviderMD - 12/25/2021 11:30 PM CDT ED Discharge Entered On: 12/26/2021 3:19 EDT Performed On: 12/25/2021 23:30 EDT by Nika Franco RN Discharge Process Patient Disposition : Admit/Observe Personal Belongings With Patient : Yes Patient Education Completed : Yes IV Discontinued : No Nika Franco RN - 12/26/2021 3:18 EDT Admission, ED Nurse Report Accepted By : 5B RN Nurse Report Acceptance Time : 12/25/2021 22:30 EDT `Nurse Report (Hand Off) : Called Mode Of Departure : Other: 2 Nika Martino RN - 12/26/2021 3:18 EDT Electronically signed by [facility] Conversion Confectionery Maker Cerner at 12/29/2022 4:54 PM CDT documented in this encounter Plan of Treatment Not on file documented as of this encounter Visit Diagnoses Not on filedocumented in this encounter
--- OUTSIDE RECORDS SUMMARY | 2025-03-15 11:19 | XMS_ITS | Encounter Summary ---
Author Organization [employer] ([place], [place], [place], [place]) Address [address] [place] [address] Care Team Providers Care Reconciliation Manager Name Role Phone Unavailable Primary Care Provider Unavailabl e Encounter Details Date Type Department Care Team (Late st Contact Info) Description 12/25/2021 Transcribed Document [facility] Rad[facility] [address] [place] [address] Anali South MD [address] [facility] [address] [place] [address] Social History Tobacco Use Types Packs/Day Years Used Date Smoking Tobacco: Never Assessed Sex and Gender Information Value Date Recorded Sex Assigned at Not on file Legal Sex Male 5:38 PM CDT Gender Identity Not on file Sexual Orientation Not on file documented as of this encounter Miscellaneous Notes * Cerner Conversion Note - Anali South MD - 12/25/2021 11:24 AM EDT Patient: VTIALY POOL Age: 66 years Sex: Male : 1955 Associated Diagnoses: None Author: INGRID ELLSWORTH PA-FAM CC: recurrent seizures S: pt is doing ok. Hooked up to EEG for evaluation. No f/c/s. NO n/v/d. NO cp, soa. Worked with BILINGUAL NANNY and passed. Has regular food tray. HPI: 66 YO male who presented to [facility] from [facility] secondary recurrent seizure activity. He is known to our practice from [facility]. Pt has hx of seizures, DM II, HTN, HLD, functional quadraplegia. It appears that pt had increased seizure activity in 10/2021 when at [facility] (or may have led to him going there). Keppra was added to lamictal at that time, then was hospitalized again at [facility] and dilantin was added to regimen. Despite med changes pt has continued to have seizures. It appears dilantin was low and provider had plans to start titration at [facility]. Pt had seizure for 19 min at [facility] yesterday and was still having seizure when transported by EMS. O2 sat was starting to drop. Previously he had had a seizure over 10 min. Do to recurrent seizures he was transferred here to [facility] for further work up. No records from [facility] ER were seen on pts chart. Pt says he has felt feverish. No cp, soa. Has had occ cough. Concerned about sacral/buttock wound. States that previously at [facility] it was almost healed now it is bad again. C/o pain around right parotid gland. States it was found at [facility]. States they have been swabbing his mouth with lemon juice, that helped at first but now swollen. Pt has dentures but not with him. At [facility] he was started on azithromycin and prednisone for parotid swelling. Prior hospitalizations: 11/2721-12/18/21 - [facility] - pt was unrepsonsive at [facility] and went to ER. Dc summary said seizures and DKA?. He was intubated for protection. Extubated on 12/08. He had some intermittent seizures during his stay. Dilantin was added. Seizures were stopped with Ativan. Lamictal dose was increased. EEG showed no seizure activity per D/c summary and pt returned to [facility]. He was found to have parotid swelling during this time. D/c summary also has Acute resp failure, acute renal failure, hyperkalemia and hypernatremia. 10/2021-12/01/2021 - [facility] - hip and back pain after [...] also of 50 mg q8h. 08/2021 - [facility] -- Right foot gangrene, s/p right [...] 24 hrs) Last Charted Minimum Maximum Temp 97.6 (DEC 25 05:51) 97.6 (DEC 25 05:51) 98.2 (DEC 24 15:55) Mon HR 104 (DEC 25 08:32) 92 (DEC 24 21:18) 106 (DEC 24 17:19) Periph HR 113 (DEC 24 13:49) 113 (DEC 24 13:49) 113 (DEC 24 13:49) Resp Rate 16 (DEC 25 08:32) L 12 (DEC 25 05:10) H 30 (DEC 24 13:49) SBP 111 (DEC 25 08:32) L 81 (DEC 24 21:00) H 154 (DEC 24 19:30) DBP 67 (DEC 25 08:32) L 52 (DEC 24 21:18) 90 (DEC 25 03:09) MAP 83 (DEC 25 08:32) 60 (DEC 24 21:18) 111 (DEC 25 03:09) SpO2 97 (DEC 25 08:32) L 91 (DEC 24 20:39) 99 (DEC 25 00:25) GEN: awake, but then gets sleepy during our conversation. NAD CV: S1S2, no murmur. No LE edema Resp: Decreased BS, NL Abd: Soft, NT, ND +BS Skin: no rashes on inspection and palpation. : FC in place. Ext: No LE edema. No joint edema, erythema. right AKA. NO LLE edema Neuro: A&O x 3 Data: Labs (Last four charted values) WBC H 10.8 (DEC 25) H 12.2 (DEC 24) HB L 11.3 (DEC 25) L 12.2 (DEC 24) HCT L 35.9 (DEC 25) L 38.1 (DEC 24) Plt 352 (DEC 25) H 413 (DEC 24) Na 136 (DEC 14) L 133 (DEC 24) K 4.4 (DEC 25) H 5.2 (DEC 24) Cl 105 (DEC 25) 103 (DEC 24) CO2 26 (DEC 25) 26 (DEC 24) BUN 14 (DEC 25) 13 (DEC 24) Cr L 0.60 (DEC 25) L 0.50 (DEC 24) Glu R H 145 (DEC 25) H 177 (DEC 24) Ca 9.2 (DEC 25) 9.3 (DEC 24) Lactic 0.8 (DEC 24) AST 7 (DEC 24) ALT [...] pending -12/25 -- no seizures over night. Leukocytosis -has been on prednisone, other Ddx infection -12/25 - improving right parotiditis -area is erythematous, edematous and tender -clindamycin 300 mg tid -12/25 - continues to hurt. Stage III wound sacrum and glutes - POA -wound care to evaluate DM II -SSI -check a1c, FSBS ACHS -12/25 - well controlled. A1c 6.4 Dysphagia -BILINGUAL NANNY eval -thickened liquids and pureed diet for now. -12/25 - passed MBS --- ok for regular diabetic diet and thin liquids CAD s/p cardiac stent in past. PAD s/p right AKA. DVT prophylaxis -eliquis Assessment and treatment plan made in conjunction with Daphne South MD documented in this encounter Plan of Treatment Not on file documented as of this encounter Visit Diagnoses Not on filedocumented in this encounter
--- OUTSIDE RECORDS SUMMARY | 2025-03-15 11:19 | XMS_ITS | Encounter Summary ---
Author Organization [employer] ([place], [place], [place], [place]) Address [address] [place] [address] Care Team Providers Care Stock Room Manager Name Role Phone Unavailable Primary Care Provider Unavailabl e Encounter Details Date Type Department Care Team (Late st Contact Info) Description 12/25/2021 Transcribed Document [facility] [place] [address] ProviderDario MD [address] [place], [place] [id number] Social History Tobacco Use Types Packs/Day Years Used Date Smoking Tobacco: Never Assessed Sex and Gender Information Value Date Recorded Sex Assigned at Not on file Legal Sex Male 5:38 PM CDT Gender Identity Not on file Sexual Orientation Not on file documented as of this encounter Miscellaneous Notes * Cerner Conversion Note - Historical ProviderMD - 12/25/2021 11:55 PM CDT Meds to Bed Enrollment Entered On: 12/26/2021 10:35 EDT Performed On: 12/25/2021 23:55 EDT by [facility] Coder Cert Lead Meds to Bed Enrollment Patient Enrollment Decision: : Yes/enroll in meds to bed program [facility] Coder Cert Lead - 12/26/2021 10:35 EDT documented in this encounter Plan of Treatment Not on file documented as of this encounter Visit Diagnoses Not on filedocumented in this encounter
--- OUTSIDE RECORDS SUMMARY | 2025-03-15 11:19 | XMS_ITS | Encounter Summary ---
Author Organization [employer] ([place], [place], [place], [place]) Address [address] [place] [address] Care Team Providers Care Application Development Specialist Name Role Phone Unavailable Primary Care Provider Unavailabl e Encounter Details Date Type Department Care Team (Late st Contact Info) Description 12/24/2021 Transcribed Document [facility] Family Medicine [facility] [place] [address] ProviderDario MD [address], [place] [id number] Social History Tobacco Use Types Packs/Day Years Used Date Smoking Tobacco: Never Assessed Sex and Gender Information Value Date Recorded Sex Assigned at Not on file Legal Sex Male 5:38 PM CDT Gender Identity Not on file Sexual Orientation Not on file documented as of this encounter Miscellaneous Notes * Cerner Conversion Note - Historical ProviderMD - 12/24/2021 3:16 PM CDT Swallow Evaluation Entered On: 12/25/2021 9:01 EDT Performed On: 12/25/2021 8:53 EDT by LUKE ACKERMAN, ITA General Information Visit Type, SCRAP HOOKER : Initial evaluation Patient Orders : Speech Language Pathology Modified Barium Swallow Study -111 Start: 12/25/21 8:47:00 EDT, Routine, For Other (see special instructions), Dysphagia - INGRID ELLSWORTH PA-FAM SCRAP HOOKER Bedside Swallow Evaluation - Start: 12/24/21 15:16:00 EDT, Routine, For Swallow Eval and Treat -111 INGRID ELLSWORTH PA-FAM Admission Date : Admission Date/Time: 12/24/21 13:29:00 Medical Chart Reviewed, SCRAP HOOKER : Yes Personal Devices : Personal Devices No Devices Recorded Assistive Devices : Assistive Devices No Devices Recorded Active Diagnoses : 12/24/2021 12:00 Seizure 12/24/2021 12:00 Seizure - Recurrent Therapy Diagnosis, SCRAP HOOKER : Pt with recent hx for dysphagia ?secondary to intubation. Recommendations: 1. Ok to continue with current puree/nectar diet 2. MBS today for further pharyngeal assessment Previous Swallow Precautions : No previous ST in EMR Diet/Intake Prior to Current Admission : Puree/nectar Diet/Intake During Current Admission : puree/nectar Intubation Comment, SCRAP HOOKER : n/a Vital Signs RTF : Vitals Temp BP Pulse RR SpO2 FIO2 Date Wt(kg) Wt(lb) 12/25 08:32 ---- 111/67 --- 16 97 --- 12/24 81.8 180 12/25 07:28 ---- ----- --- 16 96 --- 12/25 06:38 ---- ----- --- 16 96 2.0L/m 12/25 05:51 ---- 107/79 --- 17 97 --- 12/25 05:10 ---- ----- --- 12 98 --- 24 Hr Tmax: No Data Available 36 Hr Tmax: No Data Available Vital Signs are the last 5 in the past 48 hours. Weights display the last 5 within 7 days. Initial Wt: 12/24 81.8 kg 180 lb Respiratory Assessment Comment : Nasal cannula LUKE ACKERMAN SLP - 12/25/2021 8:53 EDT General Status Patient Received Status, SCRAP HOOKER : Supine in bed Treatment Start Time, SCRAP HOOKER : 12/25/2021 8:33 EDT Patient Left Status, SCRAP HOOKER : Long sitting in bed Treatment End Time, SCRAP HOOKER : 12/25/2021 8:45 EDT Treatment Time, SCRAP HOOKER : 12 Minute(s) LUKE ACKERMAN SLP - 12/25/2021 8:53 EDT Pain Assessment Pain Scaled Used : 0-10 Pain scale Pain Score Pre-Intervention : 0 LUKE ACKERMAN SLP - 12/25/2021 8:53 EDT Image 1 - Images currently included in the form version of this document have not been included in the text rendition version of the form. Oral Mechanism Dysarthria : No Resonance Types : Appropriate Oral Mechanism for Daily Living : Intact SCRAP HOOKER Cough : Strong Facial Appearance: : Symmetrical Labial Appearance : Symmetrical Labial Function : All function intact Dental/Orthodontia : Edentulous Lingual Appearance : Symmetrical Lingual Function : All function intact LUKE ACKERMAN SLP - 12/25/2021 8:53 EDT Bedside Swallow Swallow Outcome BS Swallow : Impaired, Needs additional assessment Head Control BS Swallow : Neutral head position Presentation Style BS Swallow : Self Swallow Position BS Swallow : Upright 90 degrees Trunk Control BS Swallow : Upright centered position Consistencies Trialed BS Swallow : Thin by straw, Pudding, Regular solids LUKE ACKERMAN SLP - 12/25/2021 8:53 EDT Swallow Impressions Impressions, BS Swallow : No evidence of dysphagia present Further Evaluation Required, SCRAP HOOKER : MBS today Swallowing Outcome Measures : Functional Oral Intake Scale (FOIS) Functional Oral Intake Scale (FOIS) : Level V Bedside Swallow Overall Impressions : Pt admitted from SNF w/ intractable seizures. Per pt report/chart review, pt w/ recent hx for dysphagia given intubation during acute hospital stay. PMHx is significant for seizure disorder, DM II, HTN, HLD, and functional quadraplegia. SCRAP HOOKER consulted for bedside dysphagia evaluation. Today, pt is alert and oriented x4. No difficulty participating in evaluation. Oral skills appear functional despite edentulism. No overt pharyngeal patterns appreciated with thin via straw, pudding, or solids. Given acute hx of dysphagia, pt appears safe to continue with a puree diet and nectar liquids. Medication in puree. Ok for ice after oral care. SCRAP HOOKER will proceed with MBS prior to diet advancement. Pt is agreeable to plan for MBS this AM. RN alerted to results and recommendations. LUKE ACKERMAN SLP - 12/25/2021 8:53 EDT Swallow Recommendations Recommended Diet Type, SwRec : Pureed Recommended Liquid Diet, SwRec : [place] Feeding Presentation Style, SwRec : No restrictions Swallow Position, SwRec : Upright 90 degrees Comp Strategies/Sw Precautions, SwRec : Upright for meals Supervision Level w/Meals, SwRec : Independent, complete Recommended Med Present, SwRec : With puree/pudding Recommended Exam, Sw Rec : MBSS/VFSS Repeat Swallow Exam Timeframe : 1-3 days LUKE ACKERMAN SLP - 12/25/2021 8:53 EDT Therapy Indication Assessment SCRAP HOOKER Indicated : Yes SCRAP HOOKER Interdisciplinary Consultation Needs : No SCRAP HOOKER Problem List : Impaired, Swallowing Potential Barriers to SCRAP HOOKER : None evident SCRAP HOOKER Rehabilitation Potential : Good LUKE ACKERMAN SLP - 12/25/2021 8:53 EDT Swallow Plan/Goals Treatment Frequency, SCRAP HOOKER : 5 times per wk Treatment Plan Est w/Pt/Caregvr, Swallow : Yes Treatment Duration, SCRAP HOOKER : One week Therapy at Next Level of Care, SCRAP HOOKER : half-way facility LUKE ACKERMAN SLP - 12/25/2021 8:53 EDT Swallow LTG Grid SCRAP HOOKER Mcfp Goal #1 SCRAP HOOKER Wood Craftsman Goal #2 Swallow LTG : Safely tolerates recommended diet Other: Pt goal: none stated Status : Initial LUKE ACEKRMAN SLP - 12/25/2021 8:53 EDT LUKE ACKERMAN SLP - 12/25/2021 8:53 EDT Swallow Goals Grid Goal #1 Swallow STG : Other: MBS Related To : Aspiration prevention, Penetration prevention Date to Meet : 12/25/2021 EDT Status : Initial goal LUKE ACKERMAN SLP - 12/25/2021 8:53 EDT Education Barriers To Learning : None evident Individuals Taught : Patient Readiness to Learn : Cooperative Readiness to Learn : Explanation LUKE ACKERMAN SLP - 12/25/2021 8:53 EDT SCRAP HOOKER Education Assessment Grid 1 Diet Recommendation : Verbalizes understanding Evaluation Results : Verbalizes understanding Instrumental Evaluation : Verbalizes understanding LUKE ACKERMAN SLP - 12/25/2021 8:[address] [facility] SCRAP HOOKER Charges Evaluation Swallowing Function : 1 LUKE ACKERMAN SLP - 12/25/2021 8:53 EDT Anticipated Discharge Needs, SCRAP HOOKER Anticipated Discharge to : Extended Care Facility Recommend Continued Therapy at Discharge : Yes (Comment: pending MBS [LUKE ACKERMAN SLP - 12/25/2021 8:53 EDT] ) LUKE ACKERMAN SLP - 12/25/2021 8:53 EDT documented in this encounter Plan of Treatment Not on file documented as of this encounter Visit Diagnoses Not on filedocumented in this encounter
--- OUTSIDE RECORDS SUMMARY | 2025-03-15 11:19 | XMS_ITS | Encounter Summary ---
Author Organization [employer] ([place], [place], [place], [place]) Address [address] [place] [address] Care Team Providers Care Trash Hauler Name Role Phone Unavailable Primary Care Provider Unavailabl e Encounter Details Date Type Department Care Team (Late st Contact Info) Description 12/29/2021 Transcribed Document [facility] Family Medicine [facility] [address] ProviderDario MD [address] [phone] Social History Tobacco Use Types Packs/Day Years Used Date Smoking Tobacco: Never Assessed Sex and Gender Information Value Date Recorded Sex Assigned at Not on file Legal Sex Male 5:38 PM CDT Gender Identity Not on file Sexual Orientation Not on file documented as of this encounter Miscellaneous Notes * Cerner Conversion Note - Historical ProviderMD - 12/29/2021 12:00 PM CDT On Going Discharge Planning Entered On: 12/29/2021 12:04 EDT Performed On: 12/29/2021 12:00 EDT by Vaishnavi Cunha V, Stone Chimney Mason Algebra Teacher Care Management Progress Note Discharge Arrangements : [...] Condition of Patient Patient Discharge Goal : FDC facility Is the Patient Meeting Medical Necessity : Yes Physician Agreeable to Move Forward with D/C Plan? : Yes Did you Attend Multidisciplinary Rounds? : Yes Vaishnavi Cunha V, Stone Chimney Mason Algebra Teacher - 12/29/2021 12:00 EDT Narrative Progress Note Narrative Progress Note : Patient is medically ready for discharge. CM sent updates to [facility] intiated insurance precert today. DCP-Transfer back to [facility] when insurance precert is approved. [facility] ambulance scheduled tentively for 6pm om 12/30 in case insurance precert is approved. Historical Progress Note : Patient is medically ready for discharge. Cm sent updates to [facility] CM sent message to Lisandra from signature asking for precert with insurance to be started as soon as possible. Cm scheduled [facility] for 6 pm 12/29 if bed is available and precert obtained. [facility] will need to be changed if patient is not approved to go. CM will continue to follow. ACLIXTO MCCABE, Stone Chimney Mason-Heat Treat Worker - 12/28/21 13:59:37 Vaishnavi Cunha V, Stone Chimney Mason Algebra Teacher - 12/29/2021 12:00 EDT documented in this encounter Plan of Treatment Not on file documented as of this encounter Visit Diagnoses Not on filedocumented in this encounter
--- OUTSIDE RECORDS SUMMARY | 2025-03-15 11:19 | XMS_ITS ---
Author Organization [facility] Care Team Providers Care Steel Sampler Name Role Phone Cinthia Robertson Unavailable UnavailYUMIKO Gimenez Unavailable Unavailable Allergies and adverse reactions Code CodeSystem Substance Reaction Severity StartDate Concern Status Wellbutrin Unknown 03/06/2022 active Toradol Unknown 03/06/2022 active 5489 RXNORM HYDROcodone Unknown 03/06/2022 active 2670 RXNORM Codeine Unknown 03/06/2022 active Care Team Name Role Address Phone Organization Dates YUMIKO MEHTA PCP [address] [place] [facility] [address], [facility], [facility] (Office): : [facility] 03/06/2022 - 01/25/2023 Cinthia Robertson [address] [place] [facility] [address], [place] (Office): : [place] 03/06/2022 - 01/25/2023 Goals Section Goals Description Status Target Date 2. Vitaly's will Pressure ulce r on his sacrum will show signs of healing and remain free from infection by/through review date. 1 . Viatly's left toe will show signs of improvement through the next review date. Active 03/18/2023 Vitaly will maintain current l evel of function in through the review date. Active 03/18/2023 Vitaly will not be exposed to know allergen and be free of allergic reaction through the review date. Active 03/18/2023 Vitaly will participate in activities at their hig hest level Active 03/18/2023 Vitaly will voice a level of comfort through the r eview date. Active 03/18/2023 Vitaly's comfort will be maint ained and preferences will be honored within diet restriction. Active 03/18/2023 My wishes will be honored. Active 03/18 Needs will be communicated/met. Active 03/18/2023 Resident will be free from s eizure activity or injury r/t seizures thru the review date. Active 03/18/2023 Resident will have no fall related injuries by n ext review. Active 03/18/2023 Staff will recognize s/s of complications and/or changes of status and notify MD thru next review date. Active 03/18/2023 The resident will be free fr om discomfort or adverse reactions related to anti-anxiety therapy through the review date. Active 03/18/2023 Immunizations Immunization Status Vaccine Details Vaccine Code CodeSystem Date Notes Influenza completed Influenza, adjuvanted, inactivated, quadrivalent, injectable, preservative free 205 CVX created date: 03/07/2022 administer ed date: 08/21/2020 Tetanus completed tetanus and diphtheria toxoids, not adsorbed, for adult use 138 CVX created date: 03/07/2022 administer ed date: 04/22/2019 TB 2 Step Mantoux Skin Test completed tuberculin skin test; unspecified formulation Step 2 of Multi-step with next step required 98 CVX created date: 09/21/2022 administer ed date: 03/15/2022 ALB TB 2 Step Mantoux Skin Test completed tuberculin skin test; unspecified formulation Given 0.1 ml Right Forearm intradermally Step 1 of Multi-step with next step required 98 CVX created date: 03/08/2022 consent date: 03/08/2022 administer ed date: 03/06/2022 Educated by Marty on 03/08/2022 Pneumococcal Prevnar 15 completed Pneumococcal conjugate vaccine 15-valent (PCV15), polysaccharide [id number] conjugate, adjuvant, preservative free 215 CVX created date: 03/07/2022 administer ed date: 11/11/2016 Covid 19 Pfizer Booster completed SARS-COV-2 (COVID-19) [...] consent date: 06/13/2022 administer ed date: 06/13/2022 COVID Bivalent Booster Pfizer completed SARS-COV-2 (COVID-19) vaccine, mRNA, spike protein, LNP, bivalent, preservative free, 30 mcg/0.3 mL dose, jaya-sucrose formulation Given Left Deltoid 300 CVX created date: 08/25/2022 consent date: 08/25/2022 administer ed date: 08/25/2022 Mental Status Section Date Assessment Total Score Description 01/25/2023 BIMS 15 cognitively int act CAM 0 No delirium ind icated PHQ-9 00 01/05/2023 BIMS 15 cognitively int act CAM 0 No delirium ind icated PHQ-9 00 Problems Problem # Description Date of onset Resolved Date Code CodeSystem Concern Status 1 ACUTE RESPIRATORY FAILURE WITH HYPOXIA [address] active 2 ANEMIA, UNSPECIFIED [address] active 3 BENIGN NEOPLASM OF MENINGES, UNSPECIFIED [address] active 4 DYSPHAGIA, UNSPECIFIED [address] active 5 ENCEPHALOPATHY, UNSPECIFIED [address] active 6 MAJOR DEPRESSIVE DISORDER, SINGLE EPISODE, MILD [address] active 7 POLYNEUROPATHY, UNSPECIFIED [address] active 8 PRIMARY ADRENOCORTICAL INSUFFICIENCY [address] active 9 REPEATED FALLS [address] active 10 SUICIDAL IDEATIONS [address] active 11 PRESSURE ULCER OF SACRAL REGION, UNSTAGEABLE [address] active 12 EPILEPSY, UNSPECIFIED, NOT INTRACTABLE, WITH STATUS EPILEPTICUS [address] active 13 ACQUIRED ABSENCE OF RIGHT LEG ABOVE KNEE [address] active 14 ACUTE PYELONEPHRITIS [address] active 15 ESSENTIAL (PRIMARY) HYPERTENSION [address] active 16 HYPERLIPIDEMIA, UNSPECIFIED [address] active 17 PARAPLEGIA, UNSPECIFIED [address] active 18 PRESSURE ULCER OF OTHER SITE, STAGE 2 2 10/20/[address] completed 19 SEPSIS, UNSPECIFIED ORGANISM [address] active 20 SPINAL STENOSIS, THORACIC REGION [address] active 21 TYPE 2 DIABETES MELLITUS WITH DIABETIC NEPHROPATHY [address] active Reason for Referral No Reasons for Referral Entered Social History Social History Observation Description Start Date End Date Code Code System Current Smoking Status Tobacco smoking consumption unknown 847058796 SNOMED CT Sex Assigned At Male 1955 30783-7 [facility] Gender Identity Vital Signs Code Code System Vitals Name Values and Units Timing Information 8462-4 [facility] Blood Pressure-Diastolic Value=92 Un its=mmHg 01/25/2023 8480-6 [facility] Blood Pressure-Systolic Iwgot=384 Un its=mmHg 01/25/2023 8867-4 [facility] Heart rate Value=99.0 Units=/min 14049-2 [facility] Pain Level Value=0.0 01/25/2023 8310-5 [facility] Body Temperature Value=97.5 Units= F 01/25/2023 2339-0 [facility] Blood Sugar Mvtul=756.0 Units=mg/dL 01/19/2023 9279-1 [facility] Respiratory Rate Value=18.0 Units=/m in 01/09/2023 12858-0 [facility] O2 % BldC Oximetry Value=96.0 Units= % 01/09/2023 78129-3 [facility] Weight Oxfnb=174.8 Units=Lbs 06/2023 8302-2 [facility] Height Value=72.0 Units=Inches 05/23/2022
--- OUTSIDE RECORDS SUMMARY | 2025-03-15 11:19 | XMS_ITS | Encounter Summary ---
Author Organization [employer] ([place], [place], [place], [place]) Address [address] [place] [address] Care Team Providers Care Color Straining Bag Washer Name Role Phone Unavailable Primary Care Provider Unavailabl e Encounter Details Date Type Department Care Team (Late st Contact Info) Description 12/24/2021 Transcribed Document [facility] [place] Family Medicine [address] [place] [address] ProviderDario MD [address] [place], [place] [id number] Social History Tobacco Use Types Packs/Day Years Used Date Smoking Tobacco: Never Assessed Sex and Gender Information Value Date Recorded Sex Assigned at Not on file Legal Sex Male 5:38 PM CDT Gender Identity Not on file Sexual Orientation Not on file documented as of this encounter Miscellaneous Notes * Cerner Conversion Note - Historical ProviderMD - 12/24/2021 3:53 PM CDT Consult Phone Call Documentation Entered On: 12/24/2021 15:54 EDT Performed On: 12/24/2021 15:53 EDT by Juani Torrez Emergency Room Car Storer Phone Call for Consults Consult Phone Call/Page Attempt : First call Consult Reason : recurrent seizures Provider Service Notified Name : Neurology Physician Covering for Consult : CHAVA OCHOA MD-NORMA Date and Time Call Returned : 12/24/2021 15:53 EDT Consult, Additional Information : spoke with Chava combs taken Juani Torrez, Emergency Room Car Storer - 12/24/2021 15:53 EDT documented in this encounter Plan of Treatment Not on file documented as of this encounter Visit Diagnoses Not on filedocumented in this encounter
--- OUTSIDE RECORDS SUMMARY | 2025-03-15 11:19 | XMS_ITS | Encounter Summary ---
Author Organization [employer] ([place], [place], [place], [place]) Address [address] [place] [address] Care Team Providers Care Entry Operator Name Role Phone Unavailable Primary Care Provider Unavailabl e Encounter Details Date Type Department Care Team (Late st Contact Info) Description 12/29/2021 Transcribed Document [facility] [place] Medicine [address] [place] [address] ProviderDario MD [address] [place], [place] [id number] Social History Tobacco Use Types Packs/Day Years Used Date Smoking Tobacco: Never Assessed Sex and Gender Information Value Date Recorded Sex Assigned at Not on file Legal Sex Male 5:38 PM CDT Gender Identity Not on file Sexual Orientation Not on file documented as of this encounter Miscellaneous Notes * Cerner Conversion Note - Historical ProviderMD - 12/29/2021 5:00 AM CDT Chart Check - Review Order Profile Entered On: 12/29/2021 6:22 EDT Performed On: 12/29/2021 5:00 EDT by Andrew Haas NON EMP RN Chart Check Powerplans Initiated/Discontinued as Appropriate : Yes All Active Orders Reviewed : Yes Andrew Haas NON EMP RN - 12/29/2021 6:22 EDT documented in this encounter Plan of Treatment Not on file documented as of this encounter Visit Diagnoses Not on filedocumented in this encounter
--- OUTSIDE RECORDS SUMMARY | 2025-03-15 11:19 | XMS_ITS | Encounter Summary ---
Author Organization [employer] ([place], [place], [place], [place]) Address [address] [place] [address] Care Team Providers Care Etiquette Coach Name Role Phone Unavailable Primary Care Provider Unavailabl e Encounter Details Date Type Department Care Team (Late st Contact Info) Description 01/01/2022 Transcribed Document [facility] [place] [facility] [place] [address] ProviderDario MD [address] [place] [address] Social History Tobacco Use Types Packs/Day Years Used Date Smoking Tobacco: Never Assessed Sex and Gender Information Value Date Recorded Sex Assigned at Not on file Legal Sex Male 5:38 PM CDT Gender Identity Not on file Sexual Orientation Not on file documented as of this encounter Miscellaneous Notes * Cerner Conversion Note - Historical ProviderMD - 01/01/2022 4:25 PM CDT Patient Education Materials Follows: Seizure, Adult A seizure is a sudden [...] no clear cause. ??? Having had a tonic?clonic seizure before. This type of seizure causes [...] like you saw or heard something before (d?j? vu). ??? Odd tastes or smells. ??? [...] these instructions at home: Medicines ??? Take text-tra-igeaaje and prescription medicines only as told by [...] the [place] ask your local department of motor vehicles when you can drive. ??? Get a [...] medicines are used to treat seizures. Take yzuu-jyz-rwplqiq and prescription medicines only as told by your doctor. This information is not intended to replace advice given to you by your health care provider. Make sure you discuss any questions you have with your health care provider. Document Revised: 03/07/2021 Document Reviewed: 03/07/2021 [employer] Patient Education ? 2020 [employer]. documented in this encounter Plan of Treatment Not on file documented as of this encounter Visit Diagnoses Not on filedocumented in this encounter
--- OUTSIDE RECORDS SUMMARY | 2025-03-15 11:19 | XMS_ITS | Encounter Summary ---
Author Organization [employer] ([place], [place], [place], [place]) Address [address] [place] [address] Care Team Providers Care Clinical Dietitian Name Role Phone Unavailable Primary Care Provider Unavailabl e Encounter Details Date Type Department Care Team (Late st Contact Info) Description 12/25/2021 Transcribed Document [facility] [place] [facility] [place] [address] ProviderDario MD [address], [place] [phone] Social History Tobacco Use Types Packs/Day Years Used Date Smoking Tobacco: Never Assessed Sex and Gender Information Value Date Recorded Sex Assigned at Not on file Legal Sex Male 5:38 PM CDT Gender Identity Not on file Sexual Orientation Not on file documented as of this encounter Miscellaneous Notes * Cerner Conversion Note - Historical ProviderMD - 12/25/2021 9:42 AM CDT Discharge Summary, COMPUTER SYSTEMS ANALYST Entered On: 12/25/2021 9:43 EDT Performed On: 12/25/2021 9:42 EDT by LUKE ACKERMAN SLP Discharge Notation. COMPUTER SYSTEMS ANALYST Dysphagia Treatment After Discharge : No Discharge Diet : Regular Discharge Liquids : Thin Discharge Compensatory Strategies : Upright for meals Repeat Instrumental Prior To : Not applicable Repeat Instrumental Timeline : n/a Discharge Summary Comment, COMPUTER SYSTEMS ANALYST : Pt was positioned upright at 90 degrees in [place] LAURA chair for MBS. Oropharyngeal skills are normal. There is no visualized aspiration/penetration with any consistency. There is no pharyngeal residue observed throughout evaluation. Pt appears safe to advance to a regular diet and thin liquids. Medication per RN. No further evaluation/tx for oropharyngeal dysphagia is indicated at this time. LUKE ACKERMAN, ITA - 12/25/2021 9:42 EDT Swallow Plan/Goals Swallow LTG Grid COMPUTER SYSTEMS ANALYST Fluoroscope Operator Goal #1 COMPUTER SYSTEMS ANALYST Fpc Goal #2 Swallow LTG : Safely tolerates recommended diet Other: Pt goal: none stated Status : Goal met Date Met : 12/25/2021 EDT LUKE ACKERMAN SLP - 12/25/2021 9:42 EDT LUKE ACKERMAN SLP - 12/25/2021 9:42 EDT Swallow Goals Grid Goal #1 Swallow STG : Other: MBS Related To : Aspiration prevention, Penetration prevention Date to Meet : 12/25/2021 EDT Status : Goal met Date Met : 12/25/2021 EDT LUKE ACKERMAN SLP - 12/25/2021 9:42 EDT documented in this encounter Plan of Treatment Not on file documented as of this encounter Visit Diagnoses Not on filedocumented in this encounter
--- OUTSIDE RECORDS SUMMARY | 2025-03-15 11:19 | XMS_ITS | Encounter Summary ---
Author Organization [employer] ([place], [place], [place], [place]) Address [address] [place] [address] Care Team Providers Care Service Unit Operator Oil Well Name Role Phone Unavailable Primary Care Provider Unavailabl e Encounter Details Date Type Department Care Team (Late st Contact Info) Description 12/31/2021 Transcribed Document [facility] [place] [facility] [address] ProviderDario MD [address], [place] [phone] Social History Tobacco Use Types Packs/Day Years Used Date Smoking Tobacco: Never Assessed Sex and Gender Information Value Date Recorded Sex Assigned at Not on file Legal Sex Male 5:38 PM CDT Gender Identity Not on file Sexual Orientation Not on file documented as of this encounter Miscellaneous Notes * Cerner Conversion Note - Historical ProviderMD - 12/31/2021 8:44 AM CDT On Going Discharge Planning Entered On: 12/31/2021 8:46 EDT Performed On: 12/31/2021 8:44 EDT by CINTHYA RIVERA RN-Mobile Qa TesterDialysis Biomed Technician Progress Note Discharge Arrangements : Patient Post-Acute [...] Condition of Patient Patient Discharge Goal : care home facility CINTHYA RIVERA RN-Mobile Qa Tester - 12/31/2021 8:44 EDT Narrative Progress Note Narrative Progress Note : updated F.C. with pt/ot notes via [facility] in order to facilitate precert. Historical Progress Note : HD#6 ELOS-4 RAR-moderate CM sent PT/OT updates to [facility] for insurance precert approval. CM rescheduled patient' s [facility] ambulance transport Patient is medically ready for discharge. CM sent updates to [facility]. [facility] intiated insurance precert today. DCP-Transfer back to [facility] when insurance precert is approved. [facility] ambulance scheduled tentively for 6pm om 12/30 in case insurance precert is approved. Vaishnavi Cunha V Transport Pilot Outside Industrial Sales Representative - 12/30/21 13:29:12 HD#6 ELOS-4 RAR-moderate CM sent PT/OT updates to [facility] for insurance precert approval. CM rescheduled patient's [facility] ambulance transport to Wednesday, 12/31 at 7pm. Per Lisandra with [facility], transport time is ok since he is returning there. If precert isn't approved, CM will need to reschedule transportation. DCP-[facility] pending insurance precert approved. [facility] ambulance scheduled tentively for 7pm om 12/31 in case insurance precert is approved. Vaishnavi Cunha V Transport Pilot Outside Industrial Sales Representative - 12/30/21 13:33:56 Patient is medically ready for discharge. CM sent updates to [facility]. [facility] intiated insurance precert today. DCP-Transfer back to [facility] when insurance precert is approved. [facility] ambulance scheduled tentively for 6pm om 12/30 in case insurance precert is approved. Vaishnavi Cunha V Transport Pilot Outside Industrial Sales Representative - 12/29/21 12:04:25 Patient is medically ready for discharge. Cm sent updates to [facility]. CM sent message to Lisandra from [facility] asking for precert with insurance to be started as soon as possible. Cm scheduled [facility] for 6 pm 12/29 if bed is available and precert obtained. [facility] will need to [facility] if patient is not approved to go. CM will continue to follow. CALIXTO MCCABE Transport Pilot-Cruise Consultant - 12/28/21 13:59:37 CINTHYA RIVERA, RN-Mobile Qa Tester - 12/31/2021 8:44 EDT Electronically signed by [facility] Conversion Loss Control Consultant Cerner at 12/29/2022 4:46 PM CDT documented in this encounter Plan of Treatment Not on file documented as of this encounter Visit Diagnoses Not on filedocumented in this encounter
--- OUTSIDE RECORDS SUMMARY | 2025-03-15 11:19 | XMS_ITS | Encounter Summary ---
Author Organization [employer] ([place], [place], [place], [place]) Address [address] [place] [address] Care Team Providers Care Technical Aide Name Role Phone Unavailable Primary Care Provider Unavailabl e Encounter Details Date Type Department Care Team (Late st Contact Info) Description 12/31/2021 Transcribed Document [facility] [place] [address] [place] [address] ProviderDario MD [address] [place], [place] [phone] Social History Tobacco Use Types Packs/Day Years Used Date Smoking Tobacco: Never Assessed Sex and Gender Information Value Date Recorded Sex Assigned at Not on file Legal Sex Male 5:38 PM CDT Gender Identity Not on file Sexual Orientation Not on file documented as of this encounter Miscellaneous Notes * Cerner Conversion Note - Historical ProviderMD - 12/31/2021 5:00 AM CDT Chart Check - Review Order Profile Entered On: 12/31/2021 3:32 EDT Performed On: 12/31/2021 5:00 EDT by Nikki Farley Non Emp RN Chart Check Powerplans Initiated/Discontinued as Appropriate : Yes All Active Orders Reviewed : Yes Nikki Farley Non Emp RN - 12/31/2021 3:32 EDT documented in this encounter Plan of Treatment Not on file documented as of this encounter Visit Diagnoses Not on filedocumented in this encounter
--- OUTSIDE RECORDS SUMMARY | 2025-03-15 11:19 | XMS_ITS | Encounter Summary ---
Author Organization [employer] ([place], [place], [place], [place]) Address [address] [place] [address] Care Team Providers Care Timber Surveyor Name Role Phone Unavailable Primary Care Provider Unavailabl e Encounter Details Date Type Department Care Team (Late st Contact Info) Description 12/24/2021 Transcribed Document [place] Family [place] [address] ProviderDario MD [address], [place] [phone] Social History Tobacco Use Types Packs/Day Years Used Date Smoking Tobacco: Never Assessed Sex and Gender Information Value Date Recorded Sex Assigned at Not on file Legal Sex Male 5:38 PM CDT Gender Identity Not on file Sexual Orientation Not on file documented as of this encounter Miscellaneous Notes * Cerner Conversion Note - Historical ProviderMD - 12/24/2021 1:49 PM CDT ED Triage Entered On: 12/24/2021 14:03 EDT Performed On: 12/24/2021 13:49 EDT by BRITTNEY TORRES RN ED Triage Across the Room ED Triage Treatments : Document BRITTNEY TORRES RN - 12/24/2021 14:04 EDT Chief Complaint : pt from [facility], direct admit, pt has been having seizures the past 2 days, no hx, seizures have been lasting >10mins. here for neuro evaluation. Had seizure activity during triage lasting >2 min Triage Date/Time : 12/24/2021 13:49 EDT BRITTNEY TORRES RN - 12/24/2021 13:49 EDT DCP GENERIC CODE Tracking Group : [facility] Tracking Acuity : 2 - Emergent BRITTNEY TORRES RN - 12/24/2021 13:49 EDT Mode of Arrival : Wheelchair Transported to ED by : Private vehicle To Room Via : Wheelchair Accompanied By : Unaccompanied ED Vital Signs : Document Height & Weight : Document ED Allergies : Document ED Reason for Visit : Document Tetanus Immunization : Unknown BRITTNEY TORRES RN - 12/24/2021 13:49 EDT Infectious Disease History Does patient have symptoms of COVID-19? : Unable to obtain or unsure Has the Patient Been Tested for COVID-19 in the last 14 days? : Unable to obtain or unsure Does the Patient state known exposure to a COVID-19 positive case in the last 14 days? : Unable to obtain or unsure Patient Vaccinated for COVID-19 : Unable to obtain or unsure BRITTNEY TORRES RN - 12/24/2021 13:49 EDT Infectious Disease Risk Screening Grid Cough < 2 wks of unknown origin : NO Cough > 2 weeks : NO Blood in Sputum : NO Fever or self-reported Fever : NO Rash of unknown origin : NO Headache : NO Stiff neck : NO Night Sweats : NO Unexplained Weight Loss : NO Diarrhea (3 episode per day) : NO BRITTNEY TORRES RN - 12/24/2021 13:49 EDT Physical contact outside [place] in the last 30 days : No Hospitalized in [place] : No Infectious Disease History : Chicken pox/Shingles, Measles INF Disease TB Screening Calc : 0 INF Disease Recent Travel Calc : 0 BRITTNEY TORRES RN - 12/24/2021 13:49 EDT Vital Signs ED Temperature Source : Axillary Temperature Mode : Fahrenheit Temperature, Fahrenheit : 97.9 Deg F Clinical Temperature, C : 36.6 Deg C Oxygen Therapy Mode : Nasal cannula Peripheral Pulse Rate : 113 bpm (HI) Respiratory Rate : 30 Breaths/Min (HI) Systolic Blood Pressure : 121 mmHg Diastolic Blood Pressure : 72 mmHg Oxygen Saturation : 98 % Oxygen Flow Rate : 2 Liter/Min BRITTNEY TORRES RN - 12/24/2021 13:49 EDT Allergy (As Of: 12/24/2021 14:03:44 EDT) Allergies (Active) No Known Allergies Estimated Onset Date: Unspecified ; Created By: Alondra Hughes RN; Reaction Status: Active ; Category: Drug ; Substance: No Known Allergies ; Type: Allergy ; Updated By: Alondra Hughes RN; Reviewed Date: 12/24/2021 14:01 EDT Diagnosis Control ED (As Of: 12/24/2021 14:04:45 EDT) Problems(Active) Back pain (SNOMED CT :616129876 ) Name of Problem: Back pain ; Recorder: Alondra Hughes RN; Confirmation: Confirmed ; Classification: Patient Stated ; Code: [id number] ; Contributor System: PowerChart ; Last Updated: 01/15/2016 8:18 EDT ; Life Cycle Date: 01/15/2016 ; Life Cycle Status: Active ; Vocabulary: SNOMED CT Diabetes mellitus type II (SNOMED CT :27437276 ) Name of Problem: Diabetes mellitus type II ; Recorder: Alondra Hughes RN; Confirmation: Confirmed ; Classification: Patient Stated ; Code: [id number] ; Contributor System: PowerChart ; Last Updated: 01/15/2016 8:18 EDT ; Life Cycle Date: 01/15/2016 ; Life Cycle Status: Active ; Vocabulary: SNOMED CT Hyperlipidemia (SNOMED CT :17499648 ) Name of Problem: Hyperlipidemia ; Recorder: Alondra Hughes RN; Confirmation: Confirmed ; Classification: Patient Stated ; Code: [id number] ; Contributor System: PowerChart ; Last Updated: 01/15/2016 8:18 EDT ; Life Cycle Date: 01/15/2016 ; Life Cycle Status: Active ; Vocabulary: SNOMED CT Hypertension (SNOMED CT :44645079 ) Name of Problem: Hypertension ; Recorder: Alondra Hughes RN; Confirmation: Confirmed ; Classification: Patient Stated ; Code: 12296475 ; Contributor System: PowerChart ; Last Updated: 01/15/2016 8:16 EDT ; Life Cycle Date: 01/15/2016 ; Life Cycle Status: Active ; Vocabulary: SNOMED CT Restless legs syndrome (SNOMED CT :71841749 ) Name of Problem: Restless legs syndrome ; Recorder: Alondra Hughes RN; Confirmation: Confirmed ; Classification: Patient Stated ; Code: [id number] ; Contributor System: PowerChart ; Last Updated: 01/15/2016 8:18 EDT ; Life Cycle Date: 01/15/2016 ; Life Cycle Status: Active ; Vocabulary: SNOMED CT Seizure (SNOMED CT :211778294 ) Name of Problem: Seizure ; Recorder: Alondra Hughes RN; Confirmation: Confirmed ; Classification: Patient Stated ; Code: [id number] ; Contributor System: I-MD ; Last Updated: 01/15/2016 8:18 EDT ; Life Cycle Date: 01/15/2016 ; Life Cycle Status: Active ; Vocabulary: SNOMED CT Diagnoses(Active) Seizure Date: 12/24/2021 ; Diagnosis Type: Reason For Visit ; Confirmation: Complaint of ; Clinical Dx: Seizure ; Classification: Medical ; Clinical Service: Non-Specified ; Code: PNED ; Probability: 0 ; Diagnosis Code: [id number] Seizure - Recurrent Date: 12/24/2021 ; Diagnosis Type: Reason For Visit ; Confirmation: Complaint of ; Clinical Dx: Seizure - Recurrent ; Classification: Medical ; Clinical Service: Non-Specified ; Code: PNED ; Probability: 0 ; Diagnosis Code: [id number] ED Height and Weight Height Source : Stated Height Entry Format : [place] Height, Feet : 5 ft(Converted to: 152 cm, 60 Inch) Height, Inches : 10 Inch(Converted to: 0 ft 10 Inch, 25.40 cm) Clinical Height : 177.8 cm Weight Source, ED : Critical estimated dosing weight Weight Entry Format : [place] Weight, Pounds : 180 lb Clinical Dosing Weight : 81.82 kg Body Surface Area (BSA) : 2 m2 Body Mass Index : 25.9 kg/m2 (HI) [place] Body Weight (IBW) : 72.02 kg BRITTNEY TORRES RN - 12/24/2021 13:49 EDT documented in this encounter Plan of Treatment Not on file documented as of this encounter Visit Diagnoses Not on filedocumented in this encounter
--- OUTSIDE RECORDS SUMMARY | 2025-03-15 11:19 | XMS_ITS | Encounter Summary ---
Author Organization [employer] ([place], [place], [place], [place]) Address [address] [place] [address] Care Team Providers Care Pants Maker Name Role Phone Unavailable Primary Care Provider Unavailabl e Encounter Details Date Type Department Care Team (Late st Contact Info) Description 12/31/2021 Transcribed Document [facility] Radiology [address] [place] [address] Anali South MD [address] [address] Social History Tobacco Use Types Packs/Day Years Used Date Smoking Tobacco: Never Assessed Sex and Gender Information Value Date Recorded Sex Assigned at Not on file Legal Sex Male 5:38 PM CDT Gender Identity Not on file Sexual Orientation Not on file documented as of this encounter Miscellaneous Notes * Cerner Conversion Note - Anali South MD - 12/31/2021 10:34 AM EDT Patient: VITALY POOL Age: 66 years Sex: Male : 1955 Associated Diagnoses: None Author: INGRID ELLSWORTH PA-FAM CC: recurrent seizures S: pt is doing ok. Denies any f/c/s. No n//vd. No cp, soa. coughs occasionally. sitting up to eat. Tolerating food and drink. Attending : [facility] neurology : Dr. Mcmahon, [...] or apply Heel Medix boots Apply Aloe [place] 3 (clear) or Sensicare 3 (white Zinc) [...] 300 mg = 2 Cap, Oral, TID - until 01/07/22 Colace 100 mg oral capsule 100 [...] 250 mg = 2.5 Tab, Oral, QAM LaMICtal 100 mg oral tablet 200 mg = 2 Tab, Oral, QPM Lantus 100 units/mL subcutaneous solution 6 Units, [...] HPI: 66 YO male who presented to [facility] from [facility] secondary recurrent seizure activity. He is known to our practice from [facility]. Pt has hx of seizures, DM II, HTN, HLD, functional quadraplegia. It appears that pt had increased seizure activity in 10/2021 when at [facility] (or may have led to him going there). Keppra was added to lamictal at that time, then was hospitalized again at [facility] and dilantin was added to regimen. Despite med changes pt has continued to have seizures. It appears dilantin was low and provider had plans to start titration at [facility]. Pt had seizure for 19 min at [facility] yesterday and was still having seizure when transported by EMS. O2 sat was starting to drop. Previously he had had a seizure over 10 min. Do to recurrent seizures he was transferred here to [facility] for further work up. No records from [facility] ER were seen on pts chart. Pt says he has felt feverish. No cp, soa. Has had occ cough. Concerned about sacral/buttock wound. States that previously at [facility] it was almost healed now it is bad again. C/o pain around right parotid gland. States it was found at [facility]. States they have been swabbing his mouth with lemon juice, that helped at first but now swollen. Pt has dentures but not with him. At [facility] he was started on azithromycin [...] better. will continue for 14 days total pt denies any f/c/s. NO n/v/d. No cp, soa. No cough or sputum production. eating and drinking well. Ready to d/c to SNF. PE: Vitals Signs (last 24 hrs) Last Charted Minimum Maximum Temp 98.3 (DEC 31 09:00) 98 (DEC 30 14:42) 98.4 (DEC 30 10:27) Mon HR 31 (DEC 31 09:) 31 (DEC 31 09:00) 98 (DEC 30 14:42) Resp Rate 16 (DEC 31 09:00) 16 (DEC 30 14:42) 19 (DEC 30 10:27) SBP 116 (DEC 31 09:00) 113 (DEC 30 10:27) H 143 (DEC 31 01:59) DBP 66 (DEC 31 09:00) L 52 (DEC 30 10:27) 81 (DEC 30 17:43) MAP 75 (DEC 31 09:00) 75 (DEC 31 09:00) 98 (DEC 30 17:43) SpO2 99 (DEC 31 09:00) 94 (DEC 31 01:59) 99 (DEC 31 09:00) GEN: Alert, awake, NAD; resting in bed. CV: S1S2, no murmur. No LE edema Resp: CTAB, NL Abd: Soft, NT, ND +BS Skin: no rashes on inspection and palpation. Ext: No LE edema. No joint edema, erythema. Neuro: A&O x 3 Data: Labs (Last four charted values) WBC 7.9 (DEC 31) 7.6 (DEC 30) 9.3 (DEC 29) 8.4 (DEC 28) HB L 11.2 (DEC 31) L 10.8 (DEC 30) L 10.3 (DEC 18) L 10.3 (DEC 17) HCT L 34.9 (DEC 31) L 34.6 (DEC 30) L 32.6 (DEC 18) L 33.7 (DEC 17) Plt 274 (DEC 31) 290 (DEC 30) 307 (DEC 18) 311 (DEC 17) Na 138 (DEC 20) 141 (DEC 19) 140 (DEC 18) 140 (DEC 17) K 4.3 (DEC 20) 4.6 (DEC 30) 4.1 (DEC 18) 4.6 (DEC 17) Cl 106 (DEC 20) 108 (DEC 19) 109 (DEC 18) 110 (DEC 17) CO2 26 (DEC 20) 27 (DEC 19) 25 (DEC 18) 27 (DEC 17) BUN 17 (DEC 20) 15 (DEC 19) 21 (DEC 18) 16 (DEC 17) Cr L 0.60 (DEC 20) L 0.50 (DEC 19) 0.80 (DEC 18) L 0.40 (DEC 17) Glu R H 155 (DEC 20) H 140 (DEC 19) H 198 (DEC 18) H 134 (DEC 17) Ca 8.9 (DEC 20) 9.1 (DEC 19) 8.5 (DEC 18) 8.9 (DEC 17) Lactic 0.8 (DEC 13) AST 9 (DEC 16) 7 (DEC 13) ALT 21 (DEC 16) 27 (DEC 13) ALK P 117 (APR 16) 129 (DEC 24) T Bili L 0.1 (DEC 27) 0.2 [...] inflammatory fat stranding, concerning for right parotiditis. Assessment/Plan: Recurrent seizures -DDx: medication induced, subtherapeutic [...] bid. See neurology note for titration recommendation -12/30 -stable = ready to discharge. Leukocytosis -has been on prednisone, other Ddx infection -12/25 - improving right parotiditis -area is erythematous, edematous and tender -clindamycin 300 mg tid -12/25 - continues to hurt. -12/31 - will give for total of 14 days. start florastor 250 mg bid Stage III wound sacrum and glutes - POA -wound care to evaluate DM II -SSI -check a1c, FSBS ACHS -12/25 - well controlled. A1c 6.4 Dysphagia -LABOR CONCILIATOR eval -thickened liquids and pureed diet for now. -12/25 - passed MBS --- ok for regular diabetic diet and thin liquids -12/28 d/w pt importance of him sitting straight up when eating. Showed him how he could raise the head of the bed up. CAD s/p cardiac stent in past. PAD s/p right AKA. DVT prophylaxis -eliquis Disposition; -waiting on precert. Assessment and treatment plan made in conjunction with Daphne South MD documented in this encounter Plan of Treatment Not on file documented as of this encounter Visit Diagnoses Not on filedocumented in this encounter
--- OUTSIDE RECORDS SUMMARY | 2025-03-15 11:19 | XMS_ITS | Encounter Summary ---
Author Organization [employer] ([place], [place], [place], [place]) Address [address] [place] [address] Care Team Providers Care Genetics Physician Name Role Phone Unavailable Primary Care Provider Unavailabl e Encounter Details Date Type Department Care Team (Late st Contact Info) Description 12/29/2021 Transcribed Document [facility] Family Medicine [facility] [place] [address] ProviderDario MD [address] [place] [id number] Social History Tobacco Use Types Packs/Day Years Used Date Smoking Tobacco: Never Assessed Sex and Gender Information Value Date Recorded Sex Assigned at Not on file Legal Sex Male 5:38 PM CDT Gender Identity Not on file Sexual Orientation Not on file documented as of this encounter Miscellaneous Notes * Cerner Conversion Note - Historical ProviderMD - 12/29/2021 10:14 AM CDT Patient: VITALY POOL Age: 66 years Sex: Male : 1955 Associated Diagnoses: None Author: CHAVA OCHOA MD-NORMA Subjective Pt is doing well, denies any complaints to me; no seizures over the weekend, EEG discontinued yesterday Objective VS/Measurements Vital Signs/Vital Measures 12/29/2021 6:00 EDT Systolic Blood Pressure 129 mmHg Diastolic Blood Pressure 71 mmHg Temperature, Fahrenheit 98.1 Deg F Heart Rate Monitored 93 bpm General: Pt is awake and alert, in no distress; speech is fluent with no dysarthria. Eye: Pupils are equal, round and reactive to light, Extraocular movements are intact. Respiratory: Respirations are non-labored. Cardiovascular: Normal rate, Regular rhythm. Neurologic: CN II-VII intact; motor strength intact in BUE, LLE; has right AKA. Sensation intact, no ataxia. Psychiatric: Cooperative. Results Review Labs reviewed Impression and Plan 66yo M with h/o seizures admitted with increased seizure frequency; had two episodes of arm jerking early in admission, no further spells after EEG monorail hooker for several days and otherwise has remained at baseline. He is on Keppra, Dilantin and Lamictal for seizure prophylaxis; Dilantin level has been subtherapeutic, though he does have low albumin so true level likely a bit higher. He had increased in Lamictal by Dr. Myrick over the weekend with plan to further increase to 300mg/300mg if needed. He is also treated for possible parotid infection, this may have caused breakthrough seizure as well. Recommend to continue Lamictal at current dose; can increase by 50mg every 7-10 days to total 300mg bid if needed. Continue Dilantin and Keppra; there is room to increase Dilantin as well if he continues to have seizures. He is otherwise fine for transfer back to rehab from my standpoint; will follow as needed from here, call with questions. documented in this encounter Plan of Treatment Not on file documented as of this encounter Visit Diagnoses Not on filedocumented in this encounter
--- OUTSIDE RECORDS SUMMARY | 2025-03-15 11:19 | XMS_ITS | Encounter Summary ---
Author Organization [employer] ([place], [place], [place], [place]) Address [address] [place] [address] Care Team Providers Care Business Account Specialist Name Role Phone Unavailable Primary Care Provider Unavailabl e Encounter Details Date Type Department Care Team (Late st Contact Info) Description 12/24/2021 Transcribed Document [facility] Family Medicine [facility] [place] [address] ProviderDario MD [address] [place] [id number] Social History Tobacco Use Types Packs/Day Years Used Date Smoking Tobacco: Never Assessed Sex and Gender Information Value Date Recorded Sex Assigned at Not on file Legal Sex Male 5:38 PM CDT Gender Identity Not on file Sexual Orientation Not on file documented as of this encounter Miscellaneous Notes * Cerner Conversion Note - Historical ProviderMD - 12/24/2021 6:03 PM CDT Evaluation, Physical Therapy Entered On: 12/26/2021 15:13 EDT Performed On: 12/26/2021 14:45 EDT by RICHARD VASQUEZ PT Student General Information, PT Visit Type, PT : Initial evaluation Patient Orders : Order Date Order Ordering 12/24/2021 18:03 PT Evaluation and Treatment Ordered By: INGRID ELLSWORTH PA-FAM Active Diagnoses : 12/24/2021 12:00 Seizure 12/24/2021 12:00 Seizure - Recurrent Therapy Diagnosis, PT : Debility decreased tolerance to upright positions Onset of Problem, PT : 12/24/2021 EDT Admission Date : 12/24/2021 13:29 Co-treated by, PT : Occupational Therapist, Physical Therapist Personal Devices : Personal Devices No Devices Recorded Assistive Devices : Assistive Devices No Devices Recorded Precautions in Place : Seizure precautions RICHARD VASQUEZ, PT Student - 12/26/2021 14:57 EDT General Information Comment, PT : Dx: Seizure, saral pressure ulcer, dysphagia PMH: R AKA, DM, HTN, HLD, ARF THEO GARCIA, PT - 12/26/2021 16:22 EDT General Status Patient Received Status : Supine in bed Treatment Start Time : 12/26/2021 14:10 EDT RICHARD VASQUEZ PT Student - 12/26/2021 14:57 EDT Patient Left Status : Supine in bed, Communication board completed, All needs met and within reach THEO GARCIA, PT - 12/26/2021 16:22 EDT RN/PCT Informed Comment : PT evaluation confirmed with RN Treatment End Time : 12/26/2021 14:45 EDT Treatment Time : 35 Minute(s) RICHARD VASQUEZ PT Student - 12/26/2021 14:57 EDT History and Environment Living Situation, Therapy : Home Patient Lives With : Alone Persons Assisting Patient at Home : Alone Persons Providing Information : Patient Home Equipment Therapy, PT : Board, slide, Lift, mechanical, Wheelchair Home Setup : One story Stairs : Yes Stair Location(s) : Outside Outside Stairs, Number of Steps : 1 RICHARD VASQUEZ PT Student - 12/26/2021 14:57 EDT RICHARD VASQUEZ PT Student - 12/26/2021 14:57 EDT Prior Level of Function PT GRID Prior LOF Ambulation, Community : Dependent Prior LOF Bed Mobility : Assist needed Prior LOF Toileting : Independent Prior LOF Transfer : Assist needed Prior LOF Wheel Chair Mobility : Independent RICHARD VASQUEZ PT Student - 12/26/2021 14:57 EDT Prior LOF Ambulation, Household : Dependent THEO GARCIA, PT - 12/26/2021 16:22 EDT Lower Extremity Left Lower Extremity MMT Knee Extension (0-0) : 3+/fair Ankle Dorsiflexion (0-20) : 3+/fair RICHARD VASQUEZ PT Student - 12/26/2021 14:57 EDT Lower Extremity Comment : Formal MMT not assessed due to poor static sitting balance. No RLE MMT due to R AKA RICHARD VASQUEZ PT Student - 12/26/2021 14:57 EDT Functional Mobility Mobility Grid Bed Scooting : Rehab Total assistance Supine to Sit : Rehab Maximal assistance Sit to Supine : Rehab Maximal assistance THEO GARCIA, PT - 12/29/2021 9:45 EDT Bed Mobility Scooting Device : Cloth under pad THEO GARCIA, PT - 12/29/2021 9:45 EDT Gait Training/Assessment, PT Weight Bearing Status Maintained : Yes Weight Bearing Status : As tolerated Gait Assistance Level : Unable to assess/activity not appropriate (Comment: due to pt. R AKA with no prosthesis, pt. weakness [RICHARD VASQUEZ PT Student - 12/26/2021 14:57 EDT] ) RICHARD VASQUEZ PT Student - 12/26/2021 14:57 EDT Cognition Assessment, PT Orientation : Oriented x 4 Safety/Judgment Comment : Pt. aware of safety, able to make safe decisions Follows Basic Command Assessment : Pt. able to follow commands Attention Assessment : Present RICHARD VASQUEZ PT Student - 12/26/2021 14:57 EDT Edu Topics Physical Therapy Education Grid Balance Training : Returns demonstration, Needs further teaching Bed Mobility Training : Returns demonstration, Needs further teaching Positioning : Returns demonstration, Needs further teaching Role of Physical Therapy : Returns demonstration, Needs further teaching Safety : Returns demonstration, Needs further teaching Transfer Training : Returns demonstration, Needs further teaching RICHARD VASQUEZ PT Student - 12/26/2021 14:57 EDT Indication Assesessment, PT Physical Therapy Indicated : Yes PT Problem List : Impaired, activities daily living, Impaired, bed mobility, Impaired, endurance tolerance, Impaired, gait, Impaired, joint mobility, Impaired, muscle tone, Impaired, sitting balance, Impaired, stair mobility, Impaired, standing balance, Impaired, strength, Impaired, transfers Potential Barriers To Therapy : Acuity of Illness Rehabilitation Potential : Good RICHARD VASQUEZ PT Student - 12/26/2021 14:57 EDT Plan of Care, PT PT Tx Plan/Goals Established w Patient : Yes PT Frequency Rehab : Five days per week PT Duration Rehab : Fourteen days PT Treatments Planned : Balance training, Bed mobility training, Caregiver training, Manual therapy, Neuromuscular reeducation, Safety education, Therapeutic exercises, Transfer training, Wheelchair management training RICHARD VASUQEZ PT Student - 12/26/2021 14:57 EDT Short Term Goals BalanceSTG Grid Goal #1 Activity : Sitting, static Assist : Assist, moderate Date to Meet : 01/02/2022 EDT Goal Status : Intial Goal RADHA THEO Travis, PT - 12/26/2021 16:22 EDT Mobility/Bed Mobility STG PT Grid Goal #2 Goal #1 Activity : Supine to sit Assist : Assist, moderate Date to Meet : 01/02/2022 EDT Goal Status : Initial goal Comment : see balance goal below RADHA, THEO Robles, PT - 12/26/2021 16:22 EDT RICHARD VASQUEZ PT Student - 12/26/2021 14:57 EDT Transfer STG Grid Goal #1 Destination : Chair, with arms Type : Mechanical lift Assist : Assist, maximal Date to Meet : 01/02/2022 EDT Goal Status : Intial Goal RICHARD VASQUEZ PT Student - 12/26/2021 14:57 EDT Email Engineer Goals BalanceLTG Grid Goal #1 Activity : Sitting, static Assist : Assist, minimal Date to Meet : 01/09/2022 EDT Goal Status : Intial Goal RADHATHEO, PT - 12/26/2021 16:22 EDT Mobility/Bed Mobility LTG PT Grid Goal #2 Goal #1 Activity : Supine to sit Assist : Assist, minimal Date to Meet : 01/09/2022 EDT Goal Status : Intial Goal Comment : sitting balance goal THEO GARCIA, PT - 12/26/2021 16:22 EDT RICHADR VASQUEZ PT Student - 12/26/2021 14:57 EDT Transfer LTG Grid Goal #1 Destination : Chair, with arms Type : Sliding board Assist : Assist, maximal Equipment : Belt, gait Date to Meet : 01/09/2022 EDT Goal Status : Intial Goal RICHARD VASQUEZ PT Student - 12/26/2021 14:57 EDT Treatment Note Subjective Comment : Pt. agreeable to PT evaluation. RICHARD VASQUEZ PT Student - 12/26/2021 14:57 EDT Additional Objective Information : Pt supine in bed at start of session. Oriented x4 and was asked to sit EOB. Pt. required max A to achive sitting EOB and to maintain static sitting balance. Pt. reported some dizziness while sitting EOB, and stayed there for 8 minutes. Pt. was then max A to return to supine and to scoot up in bed. BUE and LLE MMT were completed and pt. was left with all needs met, and communication board was completed. Spent significant amount of time end of treatment educating pt on benefits of mobility and discussing progression of mobility, DME needs and options. THEO GARCIA, PT - 12/26/2021 16:22 EDT Assessment : Pt. demonstrated decreased sitting balance and impaired bed mobility. Pt. would benefit from skilled PTx in order to acheive PLOF with transfers, static sitting balance, bed mobility, and improve tolerance to upright positions. RICHARD VASQUEZ PT Student - 12/26/2021 14:57 EDT Plan for Treatment : See goals and POC PT has reviewed PT student documentation and is in agreement. THEO GARCIA, PT - 12/26/2021 16:22 EDT Pain Assessment Pain Scaled Used : 0-10 Pain scale Pain Score Pre-Intervention : 0 Pain Score During-Intervention : 0 Pain Score Post-Intervention. : 0 RICHARD VASQUEZ PT Student - 12/26/2021 14:57 EDT Image 1 - Images currently included in the form version of this document have not been included in the text rendition version of the form. Anticipated Discharge Needs, OT/PT Anticipated Discharge to : Unit, rehabilitation Recommend Continued Therapy at Discharge : Yes RICHARD VASQUEZ PT Student - 12/26/2021 14:[address] [facility] PT Charges PT Ther Activities Ea 15 Min : 1 PT Eval Moderate Complexity : 1 RICHARD VASQUEZ PT Student - 12/26/2021 14:57 EDT documented in this encounter Plan of Treatment Not on file documented as of this encounter Visit Diagnoses Not on filedocumented in this encounter
--- OUTSIDE RECORDS SUMMARY | 2025-03-15 11:19 | XMS_ITS | Encounter Summary ---
Author Organization [employer] ([place], [place], [place], [place]) Address [address] [place] [address] Care Team Providers Care Family Practice Doctor Name Role Phone Unavailable Primary Care Provider Unavailabl e Encounter Details Date Type Department Care Team (Late st Contact Info) Description 12/28/2021 Transcribed Document [facility] Radiology [address] [place] [address] Anali South MD [address] [facility] [address] [place] [address] Social History Tobacco Use Types Packs/Day Years Used Date Smoking Tobacco: Never Assessed Sex and Gender Information Value Date Recorded Sex Assigned at Not on file Legal Sex Male 5:38 PM CDT Gender Identity Not on file Sexual Orientation Not on file documented as of this encounter Miscellaneous Notes * Cerner Conversion Note - Anali South MD - 12/28/2021 12:02 PM EDT Patient: VITALY POOL Age: 66 years Sex: Male : 1955 Associated Diagnoses: None Author: INGRID ELLSWORTH PA-FAM CC: recurrent seizures S: doing well. no f/c/.s no n/v/d. No cp, soa. pt has been laying back when eating and drinking HPI: 66 YO male who presented to [facility] from [facility] secondary recurrent seizure activity. He is known to our practice from [facility]. Pt has hx of seizures, DM II, HTN, HLD, functional quadraplegia. It appears that pt had increased seizure activity in 10/2021 when at [facility] (or may have led to him going there). Keppra was added to lamictal at that time, then was hospitalized again at [facility] and dilantin was added to regimen. Despite med changes pt has continued to have seizures. It appears dilantin was low and provider had plans to start titration at [facility]. Pt had seizure for 19 min at [facility] yesterday and was still having seizure when transported by EMS. O2 sat was starting to drop. Previously he had had a seizure over 10 min. Do to recurrent seizures he was transferred here to [facility] for further work up. No records from [facility] ER were seen on pts chart. Pt says he has felt feverish. No cp, soa. Has had occ cough. Concerned about sacral/buttock wound. States that previously at [facility] it was almost healed now it is bad again. C/o pain around right parotid gland. States it was found at [facility]. States they have been swabbing his mouth with lemon juice, that helped at first but now swollen. Pt has dentures but not with him. At [facility] he was started on azithromycin and prednisone for parotid swelling. Prior hospitalizations: 11/2721-12/18/21 - [facility] - pt was unrepsonsive at [facility] and went to ER. Dc summary said seizures and DKA?. He was intubated for protection. Extubated on 12/08. He had some intermittent seizures during his stay. Dilantin was added. Seizures were stopped with Ativan. Lamictal dose was increased. EEG showed no seizure activity per D/c summary and pt returned to [facility]. He was found to have parotid [...] also of 50 mg q8h. 08/2021 - [facility] -- Right foot gangrene, s/p right AKA [...] 24 hrs) Last Charted Minimum Maximum Temp 98.0 (DEC 17 03:30) 98 (DEC 27 21:12) 98.3 (DEC 27 18:00) Apical HR 95 (DEC 28 00:45) 95 (DEC 28 00:45) 95 (DEC 28 00:45) Mon HR 94 (DEC 28 03:30) 29 (DEC 28 01:00) 98 (DEC 27 15:00) Resp Rate 16 (DEC 27 21:00) 16 (DEC 27 18:00) 16 (DEC 27 18:00) SBP 132 (DEC 28 03:30) 108 (DEC 27 21:12) 132 (DEC 28 03:30) DBP 85 (DEC 28 03:30) 67 (DEC 27 21:12) 85 (DEC 28 00:45) MAP 105 (DEC 28 03:30) 77 (DEC 16 21:12) 108 (DEC 28 00:45) SpO2 99 (DEC 28 03:30) 96 (DEC 27 18:00) 100 (DEC 28 01:30) Data: Labs (Last four charted values) WBC 8.4 (DEC 17) H 10.3 (DEC 16) H 9.7 (DEC 15) H 10.8 (DEC 14) HB L 10.3 (DEC 17) L 10.6 (DEC 16) L 10.6 (DEC 15) L 11.3 (DEC 14) HCT L 33.7 (DEC 17) L 33.2 (APR 16) L 34.0 (APR 15) L 35.9 (APR 14) Plt 311 (DEC 17) 341 (APR 16) 342 (APR 15) 352 (DEC 14) Na 140 (APR 17) 140 (APR 16) 137 (APR 15) 136 (APR 14) K 4.6 (APR 17) 4.2 (APR 16) 4.3 (APR 15) 4.4 (APR 14) Cl 110 (APR 17) 109 (APR 16) 108 (DEC 15) 105 (APR 14) CO2 27 (DEC 17) 25 (APR 16) 25 (APR 15) 26 (APR 14) BUN 16 (DEC 28) 17 (DEC 16) 18 (DEC 15) 14 (DEC 25) Cr L 0.40 (DEC 28) 0.80 (DEC 16) 0.70 (DEC 15) L 0.60 (DEC 25) Glu R H 134 (DEC 28) H 237 (DEC 16) H 129 (DEC 15) H 145 (DEC 14) Ca 8.9 (DEC 28) 8.5 (DEC 16) 8.9 (DEC 15) 9.2 (DEC 25) Lactic 0.8 (DEC 24) AST 9 (DEC 16) 7 (DEC 24) ALT 21 (DEC 27) 27 (DEC 24) ALK P 117 (DEC 27) 129 (DEC 24) T Bili L 0.1 (DEC 27) 0.2 (DEC 24) PTN 6.5 (DEC 27) 7.4 (DEC 24) ALB L 2.3 (DEC 27) L 2.6 (DEC 24) Assessment/Plan: Recurrent seizures [...] -12/25 - well controlled. A1c 6.4 Dysphagia -[employer] SALESPERSON eval -thickened liquids and pureed diet for [...] when insurance approval and transportation is arranged. Assessment and treatment plan made in conjunction with Daphne South MD documented in this encounter Plan of Treatment Not on file documented as of this encounter Visit Diagnoses Not on filedocumented in this encounter
--- OUTSIDE RECORDS SUMMARY | 2025-03-15 11:19 | XMS_ITS | Encounter Summary ---
Author Organization [employer] ([place], [place], [place], [place]) Address [address] [place] [id number] Care Team Providers Care Scrap Picker Name Role Phone Unavailable Primary Care Provider Unavailabl e Encounter Details Date Type Department Care Team (Late st Contact Info) Description 01/01/2022 Transcribed Document [facility] [place] [address] [place] [address] ProviderDario MD [address] [place], [place] [address] Social History Tobacco Use Types Packs/Day Years Used Date Smoking Tobacco: Never Assessed Sex and Gender Information Value Date Recorded Sex Assigned at Not on file Legal Sex Male 5:38 PM CDT Gender Identity Not on file Sexual Orientation Not on file documented as of this encounter Miscellaneous Notes * Cerner Conversion Note - Historical ProviderMD - 01/01/2022 1:38 PM CDT Meds to Bed Enrollment Entered On: 01/01/2022 13:39 EDT Performed On: 01/01/2022 13:38 EDT by Blanka Mitchell Pharmacist Meds to Bed Enrollment Patient Enrollment Decision: : No/do not enroll in meds to bed program Reason for Declining Meds to Bed Program: : Discharge to facility Blanka Mitchell Pharmacist - 01/01/2022 13:38 EDT documented in this encounter Plan of Treatment Not on file documented as of this encounter Visit Diagnoses Not on filedocumented in this encounter
--- OUTSIDE RECORDS SUMMARY | 2025-03-15 11:19 | XMS_ITS | Encounter Summary ---
Author Organization [employer] ([place], [place], [place], [place]) Address [address] [place] [address] Care Team Providers Care Reporting Analyst Name Role Phone Unavailable Primary Care Provider Unavailabl e Encounter Details Date Type Department Care Team (Late st Contact Info) Description 01/01/2022 Transcribed Document [facility] [place] [facility] [place] [address] ProviderDario MD [address] [place] [address] Social History Tobacco Use Types Packs/Day Years Used Date Smoking Tobacco: Never Assessed Sex and Gender Information Value Date Recorded Sex Assigned at Not on file Legal Sex Male 5:38 PM CDT Gender Identity Not on file Sexual Orientation Not on file documented as of this encounter Miscellaneous Notes * Cerner Conversion Note - Historical ProviderMD - 01/01/2022 2:06 PM CDT Final Discharge Planning Entered On: 01/01/2022 14:07 EDT Performed On: 01/01/2022 14:06 EDT by Vaishnavi Cunha V, Supervisor Game Farm Geriatrician Final Discharge Planning Discharge Arrangements : Patient Post-Acute Information Patient Name: VITALY POOL Gender: Male : [birth year] Age: 66 Years [place] Referral(s): Service: Organization: Business Address: Phone Number: [facility] [address], [place], [address] Patient Offered Choice/Affiliations Explained : Yes Designation of Choice Signed : Yes Important Medicare Message Reviewed With : Patient Important Medicare Message Reviewed D/T : 01/01/2022 14:07 EDT Transportation Needs : Ambulance Is Patient High/Moderate Readmission Risk? : Yes Moderate Readmission Risk - SNF : Notify liaison that patient is moderate risk for readmission, request patient be assessed 1-3 days after D/C and frequent evaluations occur next 1-2 weeks Patient/Family Notified of Plan : Yes Support Person/Pt Rep Notified of Plan : Yes Is Patient Ready for Discharge? : Yes Physician Notified Patient is Ready for Discharge? : Yes Discharge To Care Management : SNF with Medicare Certification-03 Vaishnavi Cunha V, Supervisor [employer] Farm Geriatrician - 01/01/2022 14:06 EDT Final Narrative Note Final Narrative Note : DC back to [facility] for rehab via [facility] ambulance at 7pm. Vaishnavi Cunha V Supervisor Game Farm Geriatrician - 01/01/2022 14:06 EDT documented in this encounter Plan of Treatment Not on file documented as of this encounter Visit Diagnoses Not on filedocumented in this encounter
--- OUTSIDE RECORDS SUMMARY | 2025-03-15 11:20 | XMS_ITS | Encounter Summary ---
Author Organization [employer] ([place], [place], [place], [place]) Address [address] [place] [address] Care Team Providers Care Websphere Developer Name Role Phone Unavailable Primary Care Provider Unavailabl e Encounter Details Date Type Department Care Team (Late st Contact Info) Description 12/26/2021 Transcribed Document [facility] [place] [facility] [place] [address] ProviderDario MD [address] [place], [place] [id number] Social History Tobacco Use Types Packs/Day Years Used Date Smoking Tobacco: Never Assessed Sex and Gender Information Value Date Recorded Sex Assigned at Not on file Legal Sex Male 5:38 PM CDT Gender Identity Not on file Sexual Orientation Not on file documented as of this encounter Miscellaneous Notes * Cerner Conversion Note - Dario ProviderMD - 12/26/2021 9:25 AM CDT DATE OF SERVICE: 12/25/2021 REPORT TYPE: EEG REFERRING PHYSICIAN: Melanie Mcmahon MD REPORT TITLE: Video Electroencephalogram Report STUDY DURATION: One day. HISTORY: This is a 66-year-old man being evaluated for recurrent seizures. EEG VIDEO MONITORING METHODOLOGY: Time-locked EEG-video monitoring was performed using the 32-channel [employer] [facility] monitoring system. The seizure detection computer was [...] SAMPLES: The recording was reviewed. During wakefulness, 8.5 to 9 Hz activity is seen posteriorly. Lower amplitude fast activity in the beta range is noted with a wider distribution. 4 to 5 Hz theta waves are seen at F7-T7 and independently and less frequently at F8-T8. Occasional 2 to 3 Hz delta waves are noted in a similar distribution. Slow waves are seen more prominently in both hemispheres during periods of drowsiness. During sleep, well-formed sleep spindles are seen in both hemispheres. SPIKE DETECTION: The spike detection program was activated during the period of monitoring and revealed no abnormal paroxysmal activity. EEG DIAGNOSES: This is an abnormal video EEG study because of: 1. Focal slow wave activity noted at F7-T7 and F8-T8, more prominent in the former. 2. Intermittent slowing of the background. CLINICAL INTERPRETATION: The patient had no clinical event during the period of monitoring. Continuous EEG recordings showed no electrographic ictal discharge or other definitive epileptiform abnormality. This video EEG study therefore provides no definitive evidence to support the diagnosis of epilepsy. However, that diagnosis cannot be excluded, particularly in the absence of a recorded event. EEG recordings showed slow waves in the anterior temporal electrodes in both hemispheres, appearing more commonly on the left. This finding is suggestive of focal cerebral dysfunction in the anterior temporal regions, more prominent on the left. Intermittent slowing of the background was noted, suggestive of mild diffuse cerebral dysfunction. /[id number] MD TERRENCE Dong/ALECIA / TAF / MODL /[id number] documented in this encounter Plan of Treatment Not on file documented as of this encounter Visit Diagnoses Not on filedocumented in this encounter
--- OUTSIDE RECORDS SUMMARY | 2025-03-15 11:20 | XMS_ITS | Encounter Summary ---
Author Organization [employer] ([place], [place], [place], [place]) Address [address] [place] [address] Care Team Providers Care Forklift Material Handler Name Role Phone Unavailable Primary Care Provider Unavailabl e Encounter Details Date Type Department Care Team (Late st Contact Info) Description 01/23/2025 Orders Only [facility] [address] [place] [address] Gustavo Leggett MD [address] [place] [address] Social History Tobacco Use Types Packs/Day Years Used Date Smoking Tobacco: Never Assessed Sex and Gender Information Value Date Recorded Sex Assigned at Not on file Legal Sex Male 5:38 PM CDT Gender Identity Not on file Sexual Orientation Not on file documented as of this encounter Plan of Treatment Not on file documented as of this encounter Procedures Procedure Name Priority Date/Time Associated Diagnosis Comments RESULT Routine 01/23/2025 4:40 PM EDT MICROSCOPIC EXAMINATION Routine 01/23/2025 4:40 PM EDT URINE CULTURE, ROUTINE Routine 01/23/2025 4:40 PM EDT URINALYSIS W/ MICROSCOPIC Routine 01/23/2025 4:40 PM EDT documented in this encounter Results * (ABNORMAL) RESULT (01/23/2025 4:40 PM EDT) Result 1 Escherichia coli(A) [facility] Comment: Cefazolin with an MURRAY <=16 predicts susceptibility to the oral agents cefaclor, cefdinir, cefpodoxime, cefprozil, cefuroxime, cephalexin, and loracarbef when used for therapy of uncomplicated urinary tract infections due to E. coli, Klebsiella pneumoniae, and Proteus mirabilis. Multi-Drug Resistant Organism Greater than 100,000 colony forming units per mL Result 2 Not applicable [facility] Antimicrobial Susceptibility Comment [facility] Comment: S = Susceptible; I = Intermediate; R = Resistant P = Positive; N = Negative MICS are expressed in micrograms per mL Antibiotic RSLT#1 RSLT#2 RSLT#3 RSLT#4 Amoxicillin/Clavulanic Acid S Ampicillin S Cefazolin S Cefepime S Cefoxitin I Cefpodoxime S Ceftriaxone S Ciprofloxacin R Ertapenem S Gentamicin S Levofloxacin R Meropenem S Nitrofurantoin S Piperacillin/Tazobactam S Tetracycline S Tobramycin S Trimethoprim/Sulfa R 01/23/2025 4:40 PM EDT 01/23/2025 Narrative [facility] - 01/27/2025 4:07 PM EDT Performed at: [address] [place] [id number] Commercial Driver: Michael Roland PhD, Phone: [phone] Gustavo Leggett MD PATHOLOGY/CYTOLOGY ORDERABLE S Final Result Performing Organization Address [facility] de Phone Number [facility] * (ABNORMAL) URINE CULTURE, ROUTINE (01/23/2025 4:40 PM EDT) Urine Culture, Routine Final report(A) [facility] 01/23/2025 4:40 PM EDT 01/23/2025 Comment:UR Narrative [facility] - 01/27/2025 4:07 PM EDT Performed at: [address] [place] [id number] Commercial Driver: Michael Roland PhD, Phone: [phone] Gustavo Leggett MD MICROBIOLOGY - GENERAL ORDER SEB Final Result Performing Organization Address [facility] de Phone Number [facility] * (ABNORMAL) MICROSCOPIC EXAMINATION (01/23/2025 4:40 PM EDT) WBC >30(A) 0 - 5 /hpf [facility] RBC >30(A) 0 - 2 /hpf [facility] Epithelial Cells (non renal) None seen 0 - 10 /hpf [facility] Casts None seen None seen /lpf [facility] Bacteria Many(A) None seen/Few [facility] 01/23/2025 4:40 PM EDT 01/23/2025 Narrative [facility] - 01/27/2025 4:07 PM EDT Performed at: [address] [place] [id number] Commercial Driver: Michael Roland PhD, Phone: [phone] us Gustavo Leggett MD PATHOLOGY/CYTOLOGY ORDERABLE S Final Result [facility] * (ABNORMAL) Urinalysis w/Microscopic (01/23/2025 4:40 PM EDT) Specific [place], UA 1.019 1.005 - 1.030 [facility] pH, UA 6.0 5.0 - 7.5 [facility] Color, UA Yellow Yellow [facility] Appearance Turbid(A) Clear [facility] WBC Esterase 3+(A) Negative [facility] Protein, UA 2+(A) Negative/Tra ce [facility] Glucose, Urine Negative Negative [facility] Ketones, UA Negative Negative [facility] Blood, UA 2+(A) Negative [facility] Bilirubin, UA Negative Negative [facility] Urobilinogen,Se mi-Qn 1.0 0.2 - 1.0 mg/dL [facility] Nitrite, UA Negative Negative [facility] Microscopic Examination See below: [facility] Comment:Microscopic was telma cated and was performed. 01/23/2025 4:40 PM EDT 01/23/2025 Narrative [facility] - 01/27/2025 4:07 PM EDT Performed at: [address] [id number] Commercial Driver: Michael Roland PhD, Phone: [phone] Resulting Agency Comment SR[facility]:UR us Gustavo Leggett MD URINE ORDERABLES Final Resul t [facility] documented in this encounter Visit Diagnoses Not on filedocumented in this encounter
--- OUTSIDE RECORDS SUMMARY | 2025-03-15 11:20 | XMS_ITS | Encounter Summary ---
Author Organization [employer] ([place], [place], [place], [place]) Address [address] [place] [address] Care Team Providers Care Drop Hammer Mechanic Name Role Phone Unavailable Primary Care Provider Unavailabl e Encounter Details Date Type Department Care Team (Late st Contact Info) Description 12/26/2021 Transcribed Document [facility] [place] [address] ProviderDario MD [address], [place] [id number] Social History Tobacco Use Types Packs/Day Years Used Date Smoking Tobacco: Never Assessed Sex and Gender Information Value Date Recorded Sex Assigned at Not on file Legal Sex Male 5:38 PM CDT Gender Identity Not on file Sexual Orientation Not on file documented as of this encounter Miscellaneous Notes * Cerner Conversion Note - Historical ProviderMD - 12/26/2021 1:38 PM CDT Initial Discharge Planning Entered On: 12/26/2021 13:48 EDT Performed On: 12/26/2021 13:38 EDT by Vaishnavi Cunha V, Forest [employer]ometrics Professor Customer Service Supervisor Initial Assessment I Previously Documented Living Environment : No qualifying data available. Living Situation : Residential unit/facility Patient Lives With : Alone Emergency Contact #1 : Littleviviana Salazar Emergency Contact #1 Emergency Contact #1 Relationship : sister (POA) Emergency Contact #2 : . Emergency Contact #2 Phone Number : . Emergency Contact #2 Relationship : . Identified Medical Decision Maker : self 2nd Ident. Medical Decision Maker : Little 2nd Ident. Medical Decision Maker 2nd Ident. Medical Decision Maker Class : sister Enter Doctors Name : John Paul Orellana Does Patient have PCP Listed? : Yes Medical Durable Power of Coal Deliverer Name : Little watson Legal Guardian : No Is Guardianship Needed : No Vaishnavi Cunha Social Worker [facility] - 12/26/2021 13:38 EDT Initial Assessment II Sensory and Motor Deficits : Quadriplegia Deficit Description : functional quadriplegia Current Home Treatments and Equipment : Hospital bed, Walker, Wheelchair, Other: lift Services and Community Resources : Home Health Services and Community Resources Addl Comments : [facility] Does the Patient have a Floor to SNF Benefit? : Yes Vaishnavi Cunha Social Worker [facility] - 12/26/2021 13:38 EDT Discharge Needs I Anticipated Discharge Date : 12/27/2021 EDT Anticipated Discharge To, CM : senior care facility Current Home Treatment/Equipment : Current Home Treatment/Equipment No qualifying data available. Post Acute/Home Treatments : None Documentation Status Complete : Yes Vaishnavi Cunha Social Worker [facility] - 12/26/2021 13:38 EDT Discharge Needs II Professional Skilled Services : Professional Skilled Services No qualifying data available. Needs Assistance with Transportation : Yes Discharge Options Discussed with Patient : Discharge transportation, DME, Home Health, Short term rehabilitation Patient Discharge Goal : senior care facility Vaishnavi Cunha Social Worker [facility] - 12/26/2021 13:38 EDT Narrative Note Narrative Note : 66 YO male who presented to [facility] from [facility] secondary recurrent seizure activity. Presently, he's at [facility] for rehab Pt has hx of seizures, DM II, HTN, HLD, functional quadraplegia. Neurology, wound care, PT/OT and speech consulted. Patient on EEG monitoring for the next 24 hours. CM met with pt. Explained role. Patient is a functional quadraplegic who's presently at [facility] for rehab. Prior to rehab, he lived alone with his 2 dogs. He has a wheelchair, hospital bed, lift and walker. He's wheelchair bound and stated that he was able to perform all of his ADL prior to rehab. He's had [facility] for [facility]. His sister, Little (Zhane) [phone] is his POA. DCP-Transfer back to [facility] via w/c van or stretcher pending bed availability and insurance precert approval. Vaishnavi Cunha Social Worker [facility] - 12/26/2021 13:38 EDT Electronically signed by Anthony, Olena Conversion Structural Steel Equipment Erector Cerner at 12/29/2022 4:34 PM CDT documented in this encounter Plan of Treatment Not on file documented as of this encounter Visit Diagnoses Not on filedocumented in this encounter
--- OUTSIDE RECORDS SUMMARY | 2025-03-15 11:20 | XMS_ITS | Encounter Summary ---
Author Organization [employer] ([place], [place], [place], [place]) Address [address] [place] [address] Care Team Providers Care Purchasing Administrator Name Role Phone Unavailable Primary Care Provider Unavailabl e Encounter Details Date Type Department Care Team (Late st Contact Info) Description 12/25/2021 Transcribed Document [facility] [place] [facility] [place] [address] ProviderDario MD [address], [place] [id number] Social History Tobacco Use Types Packs/Day Years Used Date Smoking Tobacco: Never Assessed Sex and Gender Information Value Date Recorded Sex Assigned at Not on file Legal Sex Male 5:38 PM CDT Gender Identity Not on file Sexual Orientation Not on file documented as of this encounter Miscellaneous Notes * Cerner Conversion Note - Historical ProviderMD - 12/25/2021 9:41 AM CDT HALL WORKER Therapy Screen Entered On: 12/25/2021 9:42 EDT Performed On: 12/25/2021 9:41 EDT by LUKE ACKERMAN SLP Therapy Screen Medical Chart Reviewed, HALL WORKER : Yes Information Obtained From, HALL WORKER : Patient Therapy Screen Completed, HALL WORKER : Yes Recommendations for Evaluation HALL WORKER : None Therapy Screen Comment, HALL WORKER : Pt admitted w/ seizures. No overt communication/cognitive deficits appreciated at bedside. No further communication evaluation indicated. LUKE ACKERMAN SLP - 12/25/2021 9:41 EDT Electronically signed by Anthony [facility] Conversion Plate Shear Operator Cerner at 12/29/2022 4:45 PM CDT documented in this encounter Plan of Treatment Not on file documented as of this encounter Visit Diagnoses Not on filedocumented in this encounter
--- OUTSIDE RECORDS SUMMARY | 2025-03-15 11:20 | XMS_ITS | Encounter Summary ---
Author Organization [employer] ([place], [place], [place], [place]) Address [address] [place] [address] Care Team Providers Care Revenue Field Auditor Name Role Phone Unavailable Primary Care Provider Unavailabl e Encounter Details Date Type Department Care Team (Late st Contact Info) Description 12/25/2021 Transcribed Document [facility] [place] [facility] [place] [address] ProviderDario MD [address], [place] [id number] Social History Tobacco Use Types Packs/Day Years Used Date Smoking Tobacco: Never Assessed Sex and Gender Information Value Date Recorded Sex Assigned at Not on file Legal Sex Male 5:38 PM CDT Gender Identity Not on file Sexual Orientation Not on file documented as of this encounter Miscellaneous Notes * Cerner Conversion Note - Historical ProviderMD - 12/25/2021 10:26 AM CDT Patient: VITALY POOL Age: 66 years Sex: Male : 1955 Associated Diagnoses: None Author: CHAVA OCHOA MD-NORMA Subjective Pt denies any new issues to me, currently getting hooked to EEG Per chart he had a possible seizure overnight described as repeatedly hitting his hands on the bed with unresponsiveness. Pt does not have memory for event Objective VS/Measurements Vital Signs/Vital Measures 12/25/2021 8:32 EDT Systolic Blood Pressure 111 mmHg Diastolic Blood Pressure 67 mmHg Heart Rate Monitored 104 bpm [place] 12/25/2021 5:51 EDT Temperature, Fahrenheit 97.6 Deg F General: Pt is awake and alert, appropriate in conversation; speech is slow, fluent with no dysarthria. Eye: Pupils are equal, round and reactive to light, Extraocular movements are intact. Respiratory: Respirations are non-labored. Cardiovascular: Normal rate, Regular rhythm. 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 Sensation intact, no ataxia. Psychiatric: Cooperative, Appropriate mood & affect. Results Review Labs reviewed; phenytoin level subtherapeutic at 8.6- this corrects to 10.[address] head with no acute abnormalities Impression and Plan 66yo M with h/o seizures admitted with recurrent spells concerning for seizure; he was admitted to in October for intractable seizures as well and started on Dilantin and Keppra in addition to Lamictal which he had been taking for several years. He has had two episodes here concerning for seizure, which resolved with ativan; continuous EEG to start today. He currently remains on his usual doses [...] Plan discussed with patient; neurology will follow. documented in this encounter Plan of Treatment Not on file documented as of this encounter Visit Diagnoses Not on filedocumented in this encounter
--- OUTSIDE RECORDS SUMMARY | 2025-03-15 11:20 | XMS_ITS | Encounter Summary ---
Author Organization [employer] ([place], [place], [place], [place]) Address [address] [place] [address] Care Team Providers Care Health Analytics Consultant Name Role Phone Unavailable Primary Care Provider Unavailkatharine e Encounter Details Date Type Department Care Team (Late st Contact Info) Description 12/30/2021 Transcribed Document [facility] [place] [address] [place] [address] ProviderDairo MD [address], [place] [id number] Social History Tobacco Use Types Packs/Day Years Used Date Smoking Tobacco: Never Assessed Sex and Gender Information Value Date Recorded Sex Assigned at Not on file Legal Sex Male 5:38 PM CDT Gender Identity Not on file Sexual Orientation Not on file documented as of this encounter Miscellaneous Notes * Cerner Conversion Note - Historical ProviderMD - 12/30/2021 2:00 AM CDT Cargo And Ramp Services Manager Details Entered On: 12/30/2021 2:14 EDT Performed On: 12/30/2021 2:00 EDT by Ju Chan RN Order Details Transport Mode Order Detail : Wheelchair Isolation Precautions Order Detail : Standard Precautions Order Detail : N/A IV Order Detail : 1 Oxygen Order Detail : 0 Nurse Collect Order Detail : 0 Lift/Transfer : Maximal assist Central Line Order Detail : No Room Service : Appropriate Arterial Line : No Patient Needs Meds Crushed/Liquid : No Ju Chan RN - 12/30/2021 2:13 EDT documented in this encounter Plan of Treatment Not on file documented as of this encounter Visit Diagnoses Not on filedocumented in this encounter
--- OUTSIDE RECORDS SUMMARY | 2025-03-15 11:20 | XMS_ITS | Encounter Summary ---
Author Organization [employer] ([place], [place], [place], [place]) Address [address] [place] [address] Care Team Providers Care Apiculturist Name Role Phone Unavailable Primary Care Provider Unavailabl e Encounter Details Date Type Department Care Team (Late st Contact Info) Description 12/25/2021 Transcribed Document [facility] [place] [facility] [place] [address] ProviderDario MD [address] [place] [address] Social History Tobacco Use Types Packs/Day Years Used Date Smoking Tobacco: Never Assessed Sex and Gender Information Value Date Recorded Sex Assigned at Not on file Legal Sex Male 5:38 PM CDT Gender Identity Not on file Sexual Orientation Not on file documented as of this encounter Miscellaneous Notes * Cerner Conversion Note - Historical ProviderMD - 12/25/2021 8:47 AM CDT MBSS/VFSS Evaluation Entered On: 12/25/2021 9:41 EDT Performed On: 12/25/2021 9:36 EDT by LUKE ACKERMAN, MEDICAL DEVICE SALES General Information Visit Type, MEDICAL DEVICE SALES : Re-Evaluation Patient Orders : Speech Language Pathology Modified Barium Swallow Study -111 Start: 12/25/21 8:47:00 EDT, Routine, For Other (see special instructions), Dysphagia - INGRID ELLSWORTH PA-BAMBI Admission Date : Admission Date/Time: 12/24/21 13:29:00 Medical Chart Reviewed, MEDICAL DEVICE SALES : Yes Personal Devices : Personal Devices No Devices Recorded Assistive Devices : Assistive Devices No Devices Recorded Active Diagnoses : 12/24/2021 12:00 Seizure 12/24/2021 12:00 Seizure - Recurrent Therapy Diagnosis, MEDICAL DEVICE SALES : Normal oropharyngeal function. Recommendations: 1. Regular/thin 2. Medication per RN 3. NO further evaluation/tx for oropharyngeal dysphagia indicated Previous Speech/Language Evaluations : No previous ST in EMR Previous Swallow Precautions : No previous ST in EMR Previous Cognitive Evaluations : No previous ST in EMR Diet/Intake Prior to Current Admission : Puree/nectar Diet/Intake During Current Admission : puree/nectar Intubation Comment, MEDICAL DEVICE SALES : n/a Vital Signs RTF : Vitals [...] Nasal cannula LUKE ACKERMAN SLP - 12/25/2021 9:36 EDT General Status Patient Received Status, MEDICAL DEVICE SALES : Up in chair Treatment Start Time, MEDICAL DEVICE SALES : 12/25/2021 9:17 EDT Patient Left Status, MEDICAL DEVICE SALES : Up in chair Treatment End Time, MEDICAL DEVICE SALES : 12/25/2021 9:27 EDT Treatment Time, MEDICAL DEVICE SALES : 10 Minute(s) LUKE ACKERMAN SLP - 12/25/2021 9:36 EDT Pain Assessment Pain Scaled Used : 0-10 Pain scale Pain Score Pre-Intervention : 0 LUKE ACKERMAN SLP - 12/25/2021 9:36 EDT Image 1 - Images currently included in the form version of this document have not been included in the text rendition version of the form. Oral Mechanism Dysarthria : No Resonance Types : Appropriate Oral Mechanism for Daily Living : Intact MEDICAL DEVICE SALES Cough : Strong Facial Appearance: : Symmetrical LUKE ACKERMAN SLP - 12/25/2021 9:36 EDT MBSS/VFSS Exam Swallow Outcome MB/VFSS : Intact Swallow Positions MB/VFSS : Upright 90 degrees Head Control MB/VFSS : Neutral head position Trunk Control MB/VFSS : Upright centered position Presentation Style MB/VFSS : Self Consistencies Trialed MB/VFSS : Thin by straw, Pudding, Mechanically altered, Regular solids, Mixed consistency LUKE ACKERMAN SLP - 12/25/2021 9:36 EDT Modified Barium Swallow Impairment Profile, MEDICAL DEVICE SALES Modified Barium Swallow Impairment Profile Certified : No LUKE ACKERMAN SLP - 12/25/2021 9:36 EDT Swallow Impressions Impressions, MBSS/VFSS : No evidence of dysphagia present LUKE ACKERMAN SLP - 12/25/2021 9:36 EDT 8 Point Penetration/Aspiration Grid Thin by Straw : 1 Pudding : 1 Mechanically Altered : 1 Regular Solids : 1 Mixed Consistency : 1 LUKE ACKERMAN SLP - 12/25/2021 9:36 EDT MBSS/VFSS Overall Impressions : Pt was positioned upright at 90 degrees in Hausted LAURA chair for MBS. Oropharyngeal skills are normal. There is no visualized aspiration/penetration with any consistency. There is no pharyngeal residue observed throughout evaluation. Pt appears safe to advance to a regular diet and thin liquids. Medication per RN. No further evaluation/tx for oropharyngeal dysphagia is indicated at this time. LUKE ACKERMAN SLP - 12/25/2021 9:36 EDT Swallow Recommendations Recommended Diet Type, SwRec : Regular Recommended Liquid Diet, SwRec : Thin Feeding Presentation Style, SwRec : No restrictions Swallow Position, SwRec : Upright 90 degrees Comp Strategies/Sw Precautions, SwRec : Upright for meals Supervision Level w/Meals, SwRec : Independent, complete Recommended Med Present, SwRec : As per nursing LUKE ACKERMAN SLP - 12/25/2021 9:36 EDT Therapy Indication Assessment MEDICAL DEVICE SALES Indicated : No MEDICAL DEVICE SALES Not Indicated : At prior level of function MEDICAL DEVICE SALES Interdisciplinary Consultation Needs : No MEDICAL DEVICE SALES Rehabilitation Potential : At prior level of function LUKE ACKERMAN SLP - 12/25/2021 9:36 EDT Swallow Plan/Goals Swallow LTG Grid MEDICAL DEVICE SALES Cloth Winder Goal #1 MEDICAL DEVICE SALES Custodial Goal #2 Swallow LTG : Safely tolerates recommended diet Other: Pt goal: none stated Status : Goal met Date Met : 12/25/2021 EDT LUKE ACKERMAN SLP - 12/25/2021 9:36 EDT LUKE ACKERMAN SLP - 12/25/2021 9:36 EDT Swallow Goals Grid Goal #1 Swallow STG : Other: MBS Related To : Aspiration prevention, Penetration prevention Date to Meet : 12/25/2021 EDT Status : Goal met Date Met : 12/25/2021 EDT LUKE ACKERMAN SLP - 12/25/2021 9:36 EDT Education Barriers To Learning : None evident Individuals Taught : Patient Readiness to Learn : Cooperative Readiness to Learn : Explanation LUKE ACKERMAN SLP - 12/25/2021 9:36 EDT MEDICAL DEVICE SALES Education Assessment Grid 1 Diet Recommendation : Verbalizes understanding Evaluation Results : Verbalizes understanding LUKE ACKERMAN SLP - 12/25/2021 9:[address] [facility] [employer] Charg[employer] Modified Barium Swallow : 1 LUKE ACKERMAN SLP - 12/25/2021 9:36 EDT Anticipated Discharge Needs, MEDICAL DEVICE SALES Anticipated Discharge to : Extended Care Facility Recommend Continued Therapy at Discharge : No LUKE ACKERMAN SLP - 12/25/2021 9:36 EDT documented in this encounter Plan of Treatment Not on file documented as of this encounter Visit Diagnoses Not on filedocumented in this encounter
--- OUTSIDE RECORDS SUMMARY | 2025-03-15 11:20 | XMS_ITS | Clinical Summary ---
Author Organization [facility] Address [address] [place] [address] Phone Care Team Providers Care Contour Sander Name Role Phone Mckenna MURILLO, Britton Clifford [ ] Conditions or Problems Problem Name Problem Code Onset Date Status Entry Date Provider Comment Standard Description Annotate DM Non-pressure chronic ulcer of left heel, black/dry (document depth) 380857722 (SNOMED CT) 09/19 Active 09/19 Crys Alfredo Chronic ulcer of foot Infection, local skin/subcuta neous tissue 392983846 (SNOMED CT) 09/19 Active 09/19 Crys Alfredo Localized infection of skin AND/OR subcutaneous tissue Gangrene with DM II PVD 95470073 (SNOMED CT) 09/19 Active 09/19 Crys Alfredo Type 2 diabetes mellitus DM II with diabetic PVD 141307667 (SNOMED CT) Active Crys Alfredo Peripheral vascular disease Diabetes mellitus, type II with peripheral vascular disorder, with gangrene 189356993 (SNOMED CT) Resolved Crys Alfredo Peripheral circulatory disorder due to type 2 diabetes mellitus Presence of ambrose catheter 881540107 (SNOMED CT) Resolved Crys Alfredo Urinary catheter in situ Benign Essential Hypertension 13683663 (SNOMED CT) Active Crys Alfredo Benign hypertension DM II with diabetic polyneuropat hy E11.42 (ICD-10-CM) Active Crys Alfredo Type 2 diabetes mellitus with diabetic polyneuropathy Other obesity due to excess calories 234861359 (SNOMED CT) Active Myranda Zelaya Simple obesity Presence of ambrose catheter 071667568 (SNOMED CT) Removed Bibi Edelen Urinary catheter in situ Pressure ulcer of left buttock, stage 1 07273093168 612184 (SNOMED CT) Active Bibi Edelen Pressure injury of buttock stage I Pressure ulcer of right buttock, stage 1 89805224571 107 (SNOMED CT) Active Bibi Edelen Pressure injury of right buttock stage I Cellulitis of left lower limb 002166151 (SNOMED CT) Active Bibi Edelen Cellulitis of leg, excluding foot Diabetes mellitus, type II with peripheral vascular disorder, with gangrene 859163134 (SNOMED CT) Removed Bibi Edelen Peripheral circulatory disorder due to type 2 diabetes mellitus Hx of DVT 389667925 (SNOMED CT) Active Bibi Edelen History of deep vein thrombosis Amputation of right leg above knee 699742363 (SNOMED CT) Active Bibi Edelen Amputated above knee Diabetes mellitus, type II with peripheral vascular disorder, without gangrene 338673455 (SNOMED CT) Inactive Bibi Edelen Peripheral circulatory disorder due to type 2 diabetes mellitus Diabetes mellitus, type II with peripheral neuropathy 83352626956 07 (SNOMED CT) Inactive Bibi Edelen Peripheral neuropathy due to type 2 diabetes mellitus Hypertension 04166100 (SNOMED CT) Inactive Bibi Edelen Hypertensive disorder Medications Medication Instructions Start Date Stop Date Generic Name NDC Provider DOXYCYCLINE HYCLATE 100 MG CAPS Take 1 capsule by mouth 2 (Two) Times a Day for 10 days. doxycycline hyclate 87911764991 QIE qieuser AMOXICILLIN-POT CLAVULANATE 875-125 MG TABS 1 {tbl} Oral amoxicillin-pot clavulanate 39906464490 QIE qieuser ATORVASTATIN CALCIUM 40 MG TABS Take 2 tablet by mouth every night atorvastatin 22311023972 Daria Minor METFORMIN HCL 500 MG TABS Take 2 tablet by mouth twice a day metformin 60026072448 Daria Minor CLOPIDOGREL BISULFATE 75 MG TABS Take 1 tablet by mouth once a day clopidogrel 81364870267 Daria Minor PEG 3350 17 GM PACK Take 17 gram by mouth once a day as needed polyethylene glycol 3350 09779871189 Daria Minor LAMOTRIGINE 100 MG TABS Take 1 tablet by mouth every morning lamotrigine 44102121100 Daria Minor FINASTERIDE 5 MG TABS Take 1 tablet by mouth once a day finasteride 63338578903 Daria Minor DOCUSATE SODIUM 250 MG CAPS Take 1 capsule by mouth twice a day docusate sodium 63417343669 Daria Minor ASPIRIN 81 MG TBEC Take 1 tablet by mouth once a day aspirin 05182360081 Daria Minor FUROSEMIDE 40 MG TABS Take 1 tablet by mouth once a day furosemide 36849019113 Daria Minor Thera M Plus (ferrous fumarat) 9 mg iron-400 mcg tablet Take 1 tablet by mouth once a day mdhnbqka-gjzw-s k-qzerypc-ehtz 02384316121 Daria Minor FERROUS SULFATE 325 (65 Fe) MG TABS Take 1 tablet by mouth every morning ferrous sulfate 47332701549 Daria Minor LAMOTRIGINE 25 MG TABS Take 10 tablet by mouth every night lamotrigine 90401037807 Daria Minor BACLOFEN 20 MG TABS Take 1 tablet by mouth as needed baclofen 77584750587 Daria Minor TAMSULOSIN HCL 0.4 MG CAPS Take 2 capsule by mouth once a day tamsulosin 51019960736 Daria Minor DIAZEPAM 2 MG TABS Take 1 tablet by mouth twice a day as needed diazepam 97159821984 Daria Minor LOSARTAN POTASSIUM 50 MG TABS Take 1 tablet by mouth once a day losartan 62404132065 Daria Minor BUSPIRONE HCL 5 MG TABS Take 1 tablet by mouth three times a day buspirone 62723439039 Daria Minor METOPROLOL SUCCINATE ER 25 MG [id number] Take 1 tablet by mouth once a day metoprolol succinate 31705102806 Daria Minor ubrogepant Take 1 tablet by mouth once a day as needed UBRELVY Daria Minor GLIPIZIDE 5 MG TABS Take 1 tablet by mouth twice a day glipizide 67098101288 Daria Minor ubrogepant Take 1 tablet by mouth Daily As Needed. UBRELVY QIE qieuser TAMSULOSIN HCL 0.4 MG CAPS Take 2 capsules by mouth Daily. tamsulosin 04614351846 QIE qieuser PEG 3350 17 GM PACK Take 17 g by mouth Daily As Needed. polyethylene glycol 3350 64012290345 QIE qieuser Thera M Plus (ferrous fumarat) 9 mg iron-400 mcg tablet Take 1 tablet by mouth Daily. opdnivcj-zlff-b s-hhefdfz-plqc 04923449325 QIE qieuser METOPROLOL SUCCINATE ER 25 MG [id number] Take 1 tablet by mouth Daily. metoprolol succinate 44289213658 QIE qieuser METFORMIN HCL 500 MG TABS Take 2 tablets by mouth 2 (Two) Times a Day With Meals. metformin 25657854770 QIE qieuser LOSARTAN POTASSIUM 50 MG TABS Take 1 tablet by mouth Daily. losartan 63441665659 QIE qieuser LAMOTRIGINE 25 MG TABS Take 10 tablets by mouth Every Night. lamotrigine 91065674373 QIE qieuser LAMOTRIGINE 100 MG TABS Take 1 tablet by mouth Every Morning. lamotrigine 40631961117 QIE qieuser GLIPIZIDE 5 MG TABS Take 1 tablet by mouth 2 (Two) Times a Day Before Meals. glipizide 68323603162 QIE qieuser FUROSEMIDE 40 MG TABS Take 1 tablet by mouth Daily. furosemide 65049598221 QIE qieuser FINASTERIDE 5 MG TABS Take 1 tablet by mouth Daily. finasteride 57098353196 QIE qieuser FERROUS SULFATE 325 (65 Fe) MG TABS Take 1 tablet by mouth Daily With Breakfast. ferrous sulfate 59750730238 QIE qieuser DOXYCYCLINE HYCLATE 100 MG CAPS Take 1 capsule by mouth 2 (Two) Times a Day for 7 days. doxycycline hyclate 96135670263 QIE qieuser DOCUSATE SODIUM 250 MG CAPS Take 1 capsule by mouth 2 (Two) Times a Day. docusate sodium 44471594267 QIE qieuser DIAZEPAM 2 MG TABS Take 1 tablet by mouth 2 (Two) Times a Day As Needed for Anxiety. diazepam 90330813448 QIE qieuser CLOPIDOGREL BISULFATE 75 MG TABS Take 1 tablet by mouth Daily. clopidogrel 57090053862 QIE qieuser BUSPIRONE HCL 5 MG TABS Take 1 tablet by mouth 3 (Three) Times a Day. buspirone 40575596954 QIE qieuser BACLOFEN 20 MG TABS Take 1 tablet by mouth As Needed for Muscle Spasms. baclofen 00610096393 QIE qieuser ATORVASTATIN CALCIUM 40 MG TABS Take 2 tablets by mouth Every Night. atorvastatin 34923182897 QIE qieuser ASPIRIN 81 MG TBEC Take 1 tablet by mouth Daily. OTC aspirin 80536514499 QIE qieuser AMOXICILLIN-POT CLAVULANATE 875-125 MG TABS Take 1 tablet by mouth 2 (Two) Times a Day for 7 days. amoxicillin-pot clavulanate 47337758459 QIE qieuser Medications Administered No information available. [...] Description Office Visit: Office Visit: room 13 VAPE_USE Former Tobacco smok ing status Office Visit: Office Visit:r m 15 MEDS [...] Weight Measured 275.0 [lb_av] weight E& M Weight Measured 275.0 [lb_av] weight E& M Immunizations No information available. Advance Directives Directive Description Start Date LIVING WILL ON FILE
--- OUTSIDE RECORDS SUMMARY | 2025-03-15 11:20 | XMS_ITS | Encounter Summary ---
Author Organization [employer] ([place], [place], [place], [place]) Address [address] [place] [address] Care Team Providers Care Actuarial Associate Name Role Phone Unavailable Primary Care Provider Unavailabl e Encounter Details Date Type Department Care Team (Late st Contact Info) Description 12/30/2021 Transcribed Document [facility] [place] [facility] [address] ProviderDario MD [address], [place] [id number] Social History Tobacco Use Types Packs/Day Years Used Date Smoking Tobacco: Never Assessed Sex and Gender Information Value Date Recorded Sex Assigned at Not on file Legal Sex Male 5:38 PM CDT Gender Identity Not on file Sexual Orientation Not on file documented as of this encounter Miscellaneous Notes * Cerner Conversion Note - Historical ProviderMD - 12/30/2021 1:25 PM CDT On Going Discharge Planning Entered On: 12/30/2021 13:29 EDT Performed On: 12/30/2021 13:25 EDT by Vaishnavi Cunha V, Certified Executive Chef Clinical Specialist Care Management Progress Note Discharge Arrangements : [...] Condition of Patient Patient Discharge Goal : halfway facility Is the Patient Meeting Medical Necessity : Yes Physician Agreeable to Move Forward with D/C Plan? : Yes Did you Attend Multidisciplinary Rounds? : Yes Vaishnavi Cunha V Certified Executive Chef Clinical Specialist - 12/30/2021 13:25 EDT Narrative Progress Note Narrative Progress Note : HD#6 ELOS-4 RAR-moderate CM sent PT/OT updates to [facility] for insurance precert approval. CM rescheduled patient's [facility] ambulance transport to Wednesday, 12/31 at 7pm. Per Lisandra with [facility], transport time is ok since he is returning there. If precert isn't approved, CM will need to reschedule transportation. DCP-Transfer back to [facility] pending insurance precert approved. [facility] ambulance scheduled tentively for 7pm om 12/31 in case insurance precert is approved. Vaishnavi Cunha V Certified Executive Chef Clinical Specialist - 12/30/2021 13:31 EDT Historical Progress Note : Patient is medically ready for discharge. CM sent updates to [facility]. [facility] intiated insurance precert today. DCP-Transfer back to [facility] when insurance precert is approved. [facility] ambulance scheduled tentively for 6pm om 12/30 in case insurance precert is approved. Vaishnavi Cunha V Certified Executive Chef Clinical Specialist - 12/29/21 12:04:25 Patient is medically ready for discharge. Cm sent updates to [facility]. CM sent message to Lisandra from [facility] asking for precert with insurance to be started as soon as possible. Cm scheduled [facility] for 6 pm 12/29 if bed is available and precert obtained. [facility] will need to be changed if patient is not approved to go. CM will continue to follow. CALIXTO MCCABE Certified Executive Chef-Charging Operator - 12/28/21 13:59:37 Vaishnavi Cunha V Certified Executive Chef Clinical Specialist - 12/30/2021 13:25 EDT documented in this encounter Plan of Treatment Not on file documented as of this encounter Visit Diagnoses Not on filedocumented in this encounter
--- OUTSIDE RECORDS SUMMARY | 2025-03-15 11:20 | XMS_ITS | Encounter Summary ---
Author Organization [employer] ([place], [place], [place], [place]) Address [address] [place] [address] Care Team Providers Care Vessel Crew Member Name Role Phone Unavailable Primary Care Provider Unavailabl e Encounter Details Date Type Department Care Team (Late st Contact Info) Description 12/26/2021 Transcribed Document [facility] Radiology [address] [place] [address] Anali South MD [address] [facility] [address] [place] [address] Social History Tobacco Use Types Packs/Day Years Used Date Smoking Tobacco: Never Assessed Sex and Gender Information Value Date Recorded Sex Assigned at Not on file Legal Sex Male 5:38 PM CDT Gender Identity Not on file Sexual Orientation Not on file documented as of this encounter Miscellaneous Notes * Cerner Conversion Note - Anali South MD - 12/26/2021 11:41 AM EDT Patient: VITALY POOL Age: 66 years Sex: Male : 1955 Associated Diagnoses: None Author: INGRID ELLSWORTH PA-FAM CC: recurrent seizures S: doing ok. No seizures. neurology going to monitor for another 24 hours. No f/c/s. No n/v/d. No cp, soa. no cough or sputum. HPI: 66 YO male who presented to [facility] from [facility] secondary recurrent seizure activity. He is known to our practice from [facility]. Pt has hx of seizures, DM II, HTN, HLD, functional quadraplegia. It appears that pt had increased seizure activity in 10/2021 when at [facility] (or may have led to him going there). Keppra was added to lamictal at that time, then was hospitalized again at [facility] and dilantin was added to regimen. Despite med changes pt has continued to have seizures. It appears dilantin was low and provider had plans to start titration at [facility]. Pt had seizure for 19 min at [facility] yesterday and was still having seizure when transported by EMS. O2 sat was starting to drop. Previously he had had a seizure over 10 min. Do to recurrent seizures he was transferred here to [facility] for further work up. No records from [facility] ER were seen on pts chart. Pt says he has felt feverish. No cp, soa. Has had occ cough. Concerned about sacral/buttock wound. States that previously at [facility] it was almost healed now it is bad again. C/o pain around right parotid gland. States it was found at [facility]. States they have been swabbing his mouth with lemon juice, that helped at first but now swollen. Pt has dentures but not with him. At [facility] he was started on azithromycin and prednisone for parotid swelling. Prior hospitalizations: 11/2721-12/18/21 - [facility] - pt was unrepsonsive at [facility] and went to ER. Dc summary said seizures and DKA?. He was intubated for protection. Extubated on 12/08. He had some intermittent seizures during his stay. Dilantin was added. Seizures were stopped with Ativan. Lamictal dose was increased. EEG showed no seizure activity per D/c summary and pt returned to [facility]. He was found to have parotid swelling during this time. D/c summary also has Acute resp failure, acute renal failure, hyperkalemia and hypernatremia. 10/2021-12/01/2021 - [facility] - hip and back pain after [...] also of 50 mg q8h. 08/2021 - [facility] -- Right foot gangrene, s/p right [...] 24 hrs) Last Charted Minimum Maximum Temp 97.8 (DEC 26 05:30) 97.8 (DEC 26 05:30) 98.1 (DEC 25 22:25) Mon HR 97 (DEC 26 05:30) 50 (DEC 25 23:45) 104 (DEC 25:41) Resp Rate 16 (DEC 26 05:30) 16 (DEC 25 15:41) 17 (DEC 25 23:00) SBP 124 (DEC 26 05:30) 117 (DEC 25:41) 124 (DEC 26 05:30) DBP 71 (DEC 26 05:30) 71 (DEC 26 05:30) 77 (DEC 25 18:33) MAP 88 (DEC 26 05:30) 88 (DEC 26 05:30) 91 (DEC 25 23:45) SpO2 96 (DEC 26 05:30) 96 (DEC 25 18:33) 98 (DEC 25 15:41) GEN: awake, less sleepy today. NAD CV: S1S2, no murmur. No LE edema Resp: Decreased BS, NL Abd: Soft, NT, ND +BS Skin: no rashes on inspection and palpation. : FC in place. Ext: No LE edema. No joint edema, erythema. right AKA. NO LLE edema Neuro: A&O x 3 Data: Labs (Last four charted values) WBC H 9.7 (DEC 26) H 10.8 (DEC 14) H 12.2 (DEC 24) HB L 10.6 (DEC 15) L 11.3 (DEC 14) L 12.2 (DEC 13) HCT L 34.0 (DEC 15) L 35.9 (DEC 14) L 38.1 (DEC 13) Plt 342 (DEC 15) 352 (DEC 14) H 413 (DEC 13) Na 137 (DEC 15) 136 (DEC 14) L 133 (DEC 13) K 4.3 (DEC 15) 4.4 (DEC 14) H 5.2 (DEC 24) Cl 108 (DEC 15) 105 (APR 14) 103 (DEC 24) CO2 25 (DEC 26) 26 (DEC 25) 26 (DEC 24) BUN 18 (DEC 26) 14 (DEC 25) 13 (DEC 24) Cr 0.70 (DEC 26) L 0.60 (DEC 25) L 0.50 (DEC 24) Glu R H 129 (DEC 26) H 145 (DEC 25) H 177 (DEC 24) Ca 8.9 (DEC 26) 9.2 (DEC 25) 9.3 (DEC 24) Lactic [...] continuing EEG monitoring for 24 hours longer. Leukocytosis -has been on prednisone, other Ddx infection -12/25 - improving right parotiditis -area is erythematous, edematous and tender -clindamycin 300 mg tid -12/25 - continues to hurt. Stage III wound sacrum and glutes - POA -wound care to evaluate DM II -SSI -check a1c, FSBS ACHS -12/25 - well controlled. A1c 6.4 Dysphagia -CHILD PROTECTION SPECIALIST eval -thickened liquids and pureed diet for [...]
--- OUTSIDE RECORDS SUMMARY | 2025-03-15 11:20 | XMS_ITS | Encounter Summary ---
Author Organization [employer] ([place], [place], [place], [place]) Address [address] [place] [address] Care Team Providers Care Bitumen Plant Operator Name Role Phone Unavailable Primary Care Provider Unavailabl e Encounter Details Date Type Department Care Team (Late st Contact Info) Description 12/27/2021 Transcribed Document [facility] [place] [facility] [place] [address] ProviderDario MD [address], [place] [id number] Social History Tobacco Use Types Packs/Day Years Used Date Smoking Tobacco: Never Assessed Sex and Gender Information Value Date Recorded Sex Assigned at Not on file Legal Sex Male 5:38 PM CDT Gender Identity Not on file Sexual Orientation Not on file documented as of this encounter Miscellaneous Notes * Cerner Conversion Note - Dario ProviderMD - 12/27/2021 10:07 AM CDT DATE OF SERVICE: 12/26/2021 REPORT TYPE: EEG REFERRING PHYSICIAN: Melanie Mcmahon MD REPORT TITLE: Video Electroencephalogram Report STUDY DURATION: One day. HISTORY: This is a 66-year-old man, being evaluated for recurrent seizures. EEG VIDEO MONITORING METHODOLOGY: Time-locked EEG-video monitoring was performed using the 32-channel [employer] monitoring system. The seizure detection computer was [...] recording was reviewed. During wakefulness, 8 to 9 Hz activity is seen posteriorly. Lower amplitude faster activity in the beta range is seen with a wider distribution. 4 to 5 Hz theta waves are noted independently at F7-T7 and F8-T8, at times noted more prominently in the former. Occasional 2 to 3 Hz delta waves are noted in a similar distribution, particularly during periods of drowsiness. During sleep, well-formed sleep spindles are seen in both hemispheres. SPIKE DETECTION: The spike detection program was activated during the period of monitoring and revealed no abnormal paroxysmal activity. EEG DIAGNOSES: This is an abnormal video EEG study because of: 1. Intermittent focal slow wave activity noted at F7-T7 and F8-T8, more prominent in the former. 2. Intermittent slowing of the background. CLINICAL INTERPRETATION: The patient had no clinical event during the period of monitoring. Continuous EEG recordings showed no electrographic ictal discharge or other epileptiform abnormality. This video EEG study therefore provides no evidence to support the diagnosis of epilepsy. However, that diagnosis cannot be excluded, particularly in the absence of a recorded event. EEG recording showed intermittent slow wave activity in the anterior temporal electrodes, more commonly on the left, suggestive of mild focal cerebral dysfunction in the anterior temporal regions, more prominent on the left. Intermittent slowing of the background was noted, suggestive of mild diffuse cerebral dysfunction. /[id number] MD TERRENCE Dong/AQ / TAF / MODL /[id number] documented in this encounter Plan of Treatment Not on file documented as of this encounter Visit Diagnoses Not on filedocumented in this encounter
--- OUTSIDE RECORDS SUMMARY | 2025-03-15 11:20 | XMS_ITS | Encounter Summary ---
Author Organization [employer] ([place], [place], [place], [place]) Address [address] [place] [address] Care Team Providers Care Dowel Inspector Name Role Phone Unavailable Primary Care Provider Unavailabl e Encounter Details Date Type Department Care Team (Late st Contact Info) Description 12/26/2021 Transcribed Document [facility] [facility] [place] [address] ProviderDario MD [address] [id number] Social History Tobacco Use Types Packs/Day Years Used Date Smoking Tobacco: Never Assessed Sex and Gender Information Value Date Recorded Sex Assigned at Not on file Legal Sex Male 5:38 PM CDT Gender Identity Not on file Sexual Orientation Not on file documented as of this encounter Miscellaneous Notes * Cerner Conversion Note - Historical ProviderMD - 12/26/2021 8:44 AM CDT WOCN Inpatient Documentation Entered On: 12/26/2021 13:14 EDT Performed On: 12/26/2021 9:23 EDT by Beba Guzman RN-PATIENT CARE NON-ACUTE NON-EXEMPT WOCN Admission Date : Admit Date 12/24/2021 13:[address] : Diagnosis (4) Epilepsy, unspecified, not intractable, with status epilepticus Epilepsy, unspecified, not intractable, with status epilepticus Seizure - Recurrent Seizure Admitting Diagnosis ST : Reason for Admission SEIZURES WOCN Assessment Summary : Initial WOCN consult to eval and treat sacrum/gluteals wounds. Received call from JOHNATHON Schroeder 12/24 while patient was in ED for need to eval posterior wounds present upon arrival to ED. Assessment today reveals full thickness skin loss at jarod cleft, linear in shape with some slough to base consistent with moisture related skin damage evolution to Stage 3 pressure injury. Full thickness skin loss noted to right gluteal with 90% coverage of adherent yellow slough, consistent with an unstageable pressure injury. Patient reports [facility] Medihoney initiated as treatment regimen. Patient is on an CITLALY surface. PIPP in place. WOCN to be notified of changes in skin presentation. Beba Guzman RN-PATIENT CARE NON-ACUTE NON-EXEMPT - 12/26/2021 11:23 EDT documented in this encounter Plan of Treatment Not on file documented as of this encounter Visit Diagnoses Not on filedocumented in this encounter
--- OUTSIDE RECORDS SUMMARY | 2025-03-15 11:20 | XMS_ITS | Encounter Summary ---
Author Organization [employer] ([place], [place], [place], [place]) Address [address] [place] [address] Care Team Providers Care Day Camp Counselor Name Role Phone Unavailable Primary Care Provider Unavailabl e Encounter Details Date Type Department Care Team (Late st Contact Info) Description 12/27/2021 Transcribed Document [facility] [place] [facility] [address] ProviderDario MD [address], [place] [id number] Social History Tobacco Use Types Packs/Day Years Used Date Smoking Tobacco: Never Assessed Sex and Gender Information Value Date Recorded Sex Assigned at Not on file Legal Sex Male 5:38 PM CDT Gender Identity Not on file Sexual Orientation Not on file documented as of this encounter Miscellaneous Notes * Cerner Conversion Note - Historical ProviderMD - 12/27/2021 10:58 AM CDT Patient: VITALY POOL Age: 66 [...] Dilantin. I will increase Lamictal by 50 mg. Every 10 days increase by 50 mg until he is at 300 twice daily. If this is not effective he may be a candidate for VNS. He was transferred from an outside facility after repetitive spells. Continuous EEG monitoring does not show any seizures at this time. I have reviewed the case with Dr. Amezcua and continue the EEG another 24 hours. Ordered TSH, B12 Subjective No seizures no new clinical issues [...] reviewed Electronically signed by Olena Cruz Conversion Medical Director Occupational Health [employer]ner at 12/29/2022 4:31 PM CDT documented in this encounter Plan of Treatment Not on file documented as of this encounter Visit Diagnoses Not on filedocumented in this encounter
--- OUTSIDE RECORDS SUMMARY | 2025-03-15 11:20 | XMS_ITS | Encounter Summary ---
Author Organization [employer] ([place], [place], [place], [place]) Address [address] [place] [address] Care Team Providers Care Tinner Automatic Name Role Phone Unavailable Primary Care Provider Unavailabl e Encounter Details Date Type Department Care Team (Late st Contact Info) Description 01/02/2022 Transcribed Document [facility] [place] [facility] [place] [address] ProviderDario MD [address] [place], [place] [id number] Social History Tobacco Use Types Packs/Day Years Used Date Smoking Tobacco: Never Assessed Sex and Gender Information Value Date Recorded Sex Assigned at Not on file Legal Sex Male 5:38 PM CDT Gender Identity Not on file Sexual Orientation Not on file documented as of this encounter Miscellaneous Notes * Cerner Conversion Note - Dario ProviderMD - 01/02/2022 10:53 AM CDT UM Authorization Entered On: 01/02/2022 10:53 EDT Performed On: 01/02/2022 10:53 EDT by Danica Hsu, Surgical Instrument Maker Primary Insurance Authorization Authorization and Policy Numbers : Insurance 1 Health Plan: [employer] MANAGED MEDICARE Policy Number: [id number] Authorization Number: Insurance Primary Name : [facility] MANAGED MEDICARE Policy Number: [id number] Authorization Status-Primary : Approved Auth/Referral Contact Name-Primary : DC Reference Number-Primary : [id number] Authorization Number-Primary : [id number] Number of Days Authorized-Primary : 11 Day(s) Authorized Service Begin Date-Primary : 12/24/2021 EDT Authorized Service End Date-Primary : 01/04/2022 EDT Authorization Comments-Primary : Discharge summary faxed. Historical Authorization Comments-Primary : Comment 1: c/s clinicals faxed via [facility] 12/27-12/31 (DIONNE SCHAFFER, JESSEE-UTILIZATION MANAGEMENT REVIEW NON-EXEMPT 12/31/2021 13:58) Comment 2: cont stay approved per fax from [facility] 12/26/21 NRD 01/05/22 (CARMEN TRENT, Corporate Trust Officer 12/26/2021 12:07) Comment 3: c/s clinicals faxed via [facility], auth remains under review on [facility] portal (DIONNE SCHAFFER RN-UTILIZATION MANAGEMENT REVIEW NON-EXEMPT 12/26/2021 09:20) Comment 4: Clinicals submitted on [facility] website for IP approval (JODY MUÑOZ RN 12/25/2021 08:50) Danica Hsu, Surgical Instrument Maker - 01/02/2022 10:53 EDT documented in this encounter Plan of Treatment Not on file documented as of this encounter Visit Diagnoses Not on filedocumented in this encounter
--- OUTSIDE RECORDS SUMMARY | 2025-03-15 11:20 | XMS_ITS | Encounter Summary ---
Author Organization [employer] ([place], [place], [place], [place]) Address [address] [place] [address] Care Team Providers Care Cloth Boil Off Machine Operator Name Role Phone Unavailable Primary Care Provider Unavailabl e Encounter Details Date Type Department Care Team (Late st Contact Info) Description 12/26/2021 Transcribed Document [facility] [facility] [place] [address] ProviderDario MD [address] [place] [address] Social History Tobacco Use Types Packs/Day Years Used Date Smoking Tobacco: Never Assessed Sex and Gender Information Value Date Recorded Sex Assigned at Not on file Legal Sex Male 5:38 PM CDT Gender Identity Not on file Sexual Orientation Not on file documented as of this encounter Miscellaneous Notes * Cerner Conversion Note - Historical ProviderMD - 12/26/2021 11:22 AM CDT Nutrition Assessment Entered On: 12/26/2021 13:08 EDT Performed On: 12/26/2021 14:30 EDT by Cinthia De La Cruz, Non Emp Student Nutrition Assessment Current Nutrition Regimen Comment : 12/26: Automatic consult d/t PU. Pt is a 66 y/o M admitted for recurrent seizure activity, s/p 19 min seizure at SNF. Neurology following, on EEG monitoring. Pt had PU at previous rehab facility but noted has been getting worse. [employer]FT [employer] SUPPORT FITTER consulted for h/o dysphagia, okay for regular/thin [...] C, abx, Colace, iron, SSI, Keppra, PPI, Phenytoin, miralax Drips: Normal Saline Labs: Glu 129, FSBG 173/134/167, WBC 9.7, CRP 2.71 Skin: WOCN 12/26: Unstageable PU right gluteal, Stg 3 PU cleft GI: LBM 12/25, +BS Diet: 60 gm carb Intakes: Establishing, pt states 100% Ht: 70 in Wt: 180#/81.82 kg Wt hx: No wt hx BMI: not appropriate s/p AKA Adj IBW/%IBW: 146#/123% Jo Cevallos Registered Dietitian - 12/26/2021 15:59 EDT Nutrition Assessment Reason : Automatic referral Cinthia De La Cruz Non Emp Student - 12/26/2021 13:08 EDT Nutrition Diagnoses Nutrient Intake : Increased nutrient needs Nutrient Intake Related to : skin integrity Cinthia De La Cruz Non Emp Student - 12/26/2021 14:27 EDT Nutrient Intake As Evidenced by : WOCN 12/26: Unstageable PU right gluteal, Stg 3 PU cleft Jo Cevallos Registered Dietitian - 12/26/2021 15:59 EDT Nutrient Intake Status : Active Increased Nutrient Needs Comment : protein Cinthia De aL Cruz Non Emp Student - 12/26/2021 14:27 EDT Nutrition Interventions Meals and Snacks : Carbohydrate-modified diet Jo Cevallos Registered Dietitilaura - 12/26/2021 15:59 EDT Nutrition Supplement Therapy : Commercial beverage Cinthia De La Cruz Non Emp Student - 12/26/2021 14:27 EDT Monitoring/Evaluation Energy Intake : Total energy intake Food Intake : Amount of food, Meal/Snack pattern Protein Intake : Total protein Weight Status : Weight Maintanence Gastrointestinal Function : Bowel Function Cinthia De La Cruz Non Emp Student - 12/26/2021 14:27 EDT Integumentary : Pressure Ulcer Status Jo Cevallos Registered Dietitian - 12/26/2021 15:59 EDT Nutrition Recommendations Dietitian Recommendations : 1. Continue 60 gm diet. 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 Goal: Intakes 50% 2. Monitor wt 1x/wk Goal: No significant wt loss 3. Monitor BG, adjust insulin prn Goal: 70-140 mg/dL Risk: Moderate Jo Cevallos, Registered Dietitian - 12/26/2021 15:59 EDT documented in this encounter Plan of Treatment Not on file documented as of this encounter Visit Diagnoses Not on filedocumented in this encounter
--- OUTSIDE RECORDS SUMMARY | 2025-03-15 11:20 | XMS_ITS | Data Portability ---
Author Organization MICHELLE Constantine PETERSON - [facility] & NICHOLAS Juarez ADMIN Address [address] [place] [id number] Assessment No assessment recorded. Plan of Treatment Reminders Order Date Submit Date Provider Last Modified By Organization Details Last Modified Time Details Appointments None record ed. Lab None record ed. Referral None record ed. Procedures None record ed. Surgeries None record ed. Imaging None record ed. Medication Orders None record ed. Patient TargetsNo targets recorded. Patient InstructionsNo instructions recorded. Reason for Referral None Reported. Problems Name Problem SNOMED Code Status Onset Date Resolution Date Notes Provider Name and Address Organization Details Recorded Time Wound of skin 906282145 Active 2023 Tessie Blakely addie, MICHELLE - [facility] [place] 4 16:15:45 Localized infection of skin AND/OR subcutaneous tissue 378885777 Active 2023 Tessie Blakely addie, MICHELLE - [facility] - [facility] [place] 4 16:15:59 Acute kidney injury 00892886 Active 2023 Tessiejuany Blakely addie, MICHELLE - [facility] - [place] & [place] 4 16:16:19 Type 2 diabetes mellitus 28304556 Active 2023 Tessie Reddy real, MICHELLE - [facility] - [facility] & [place] 4 16:16:31 Hyperlipidemia 76933636 Active 2023 Tessiejuany Blakely addie, MICHELLE - [facility] - [place] & [place] 4 16:16:45 Amputated right lower limb above knee 498200206 Active 2023 Tessie real, MICHELLE - [facility] - [place] & [place] 4 16:17:00 Peripheral vascular disease 961150109 Active 2023 MICHELLE Sheth [facility] & [place] 4 16:17:21 Coronary arterioscleros is 54420732 Active 2023 MICHELLE Sheth [facility] & [place] 4 16:17:46 History of migraine 433435910 Active 2023 MICHELLE Sheth [facility] & [place] 4 16:18:17 Problem Notes None recorded. Medical Equipment None Reported. Medications Name Sig Start Date Stop Date Status Note LastModified by Organization Details LastModified Time compound drug active Not Available Not Available Not Available ldr adult multivitamin +fe tb 100 take 1 tab(s) orally once a day active Not Available Not Available No t Available losartan 50 mg tablet take 1 tab(s) orally once a day active Not Available Not Available No t Available furosemide 40 mg tablet take 1 tab(s) orally once a day 30 days active Not Available Not Available No t Available atorvastatin 40 mg tablet take 1 tab(s) orally once a day 30 days active Not Available Not Available No t Available buspirone 5 mg tablet take 1 tab(s) orally 3 times a day 30 days active Not Available Not Available No t Available lamotrigine 150 mg tablet take 1 tab(s) orally once a day at bedtime 30 days active Not Available Not Available No t Available doxycycline hyclate 100 mg capsule take 1 capsule(100 mg) orally twice a day for infection for 14 days active Not Available Not Available Not Available amiodarone 200 mg tablet TAKE ONE TABLET BY MOUTH TWICE DAILY active Not Available Not Available No t Available cefepime 2 gram solution for injection active Not Available Not Available No t Available Pacerone 400 mg tablet TAKE ONE TABLET BY MOUTH TWICE DAILY FOR ONE MONTH active Not Available Not Available No t Available ondansetron HCl 4 mg tablet take 1 tablet (4 mg) orally every 8 hours As Needed for nausea and vomiting for 4 days active Not Available Not Available N ot Available Lantus U-100 Insulin 100 unit/mL subcutaneous solution 45 units subcutaneou sly once a day 30 days active Not Available Not Available Not Available clopidogrel 75 mg tablet TAKE ONE TABLET BY MOUTH ONCE DAILY active Not Available Not Available No t Available aspirin 81 mg tablet,delay ed release TAKE ONE TABLET BY MOUTH ONCE DAILY active Not Available Not Available No t Available triamcinolon e acetonide 0.1 % topical cream apply 1 application 3 times a day for 14 days active Not Available Not Available No t Available spironolacto ne 25 mg tablet TAKE ONE TABLET BY MOUTH EVERY DAY active Not Available Not Available No t Available baclofen 20 mg tablet take 1 tab(s) by mouth once a day as needed for muscle spasm for 30 days active Not Available Not Available No t Available terbinafine HCl 250 mg tablet take 1 tab(s) orally once a day 14 days active Not Available Not Available No t Available metocloprami de 5 mg tablet take 1 tab(s) orally 2 times a day before meal 30 days active Not Available Not Available No t Available tamsulosin 0.4 mg capsule take 2 caps orally once a day for 30 days active Not Available Not Available No t Available linezolid 600 mg tablet TAKE ONE TABLET BY MOUTH TWICE DAILY FOR 10 DAYS active Not Available Not Available No t Available OneTouch Ultra Test strips USE TWICE DAILY FSBS TESTING DIRECTED active Not Available Not Available No t Available baclofen 10 mg tablet take 1 tab(s) orally 2 times a day as needed for muscle spasms 30 days active Not Available Not Available No t Available pantoprazole 40 mg tablet,delay ed release take 1 tab(s) orally twice a day 30 days active Not Available Not Available No t Available metformin 1,000 mg tablet take 1 tab(s) orally 2 times a day for 30 days active Not Available Not Available Not Available nystatin 100,000 unit/gram topical cream apply 1 application topically 2 times a day for 7 days active Not Available Not Available N ot Available folic acid 1 mg tablet take 1 tab(s) orally once a day 30 days active Not Available Not Available No t Available gabapentin 100 mg capsule take 2 caps orally 3 times a day as needed for nerve pain 30 days active Not Available Not Available No t Available metoprolol succinate ER 25 mg tablet,exten ded release 24 hr active Not Available Not Available Not Available levofloxacin 750 mg tablet take 1 tablet(750 mg) orally daily for 14 days active Not Available Not Available No t Available docusate sodium 250 mg capsule take 1 cap(s) orally 2 times a day 30 days active Not Available Not Available No t Available ondansetron 4 mg disintegrati ng tablet active Not Available Not Available No t Available cefdinir 300 mg capsule take 1 cap(s) orally every 12 hours for 14 days active Not Available Not Available No t Available lamotrigine 100 mg tablet take 1 tab(s) orally 2 times a day 30 days active Not Available Not Available No t Available finasteride 5 mg tablet take 1 tab(s) orally once a day 30 days active Not Available Not Available No t Available glipizide 5 mg tablet take 1 tab(s) orally 2 times a day for 30 days active Not Available Not Available Not Available amoxicillin 875 mg-potassium clavulanate 125 mg tablet TAKE 1 tab(s) orally every 12 hours FOR 10 days active Not Available Not Available No t Available oxycodone 5 mg tablet 1 TABLET EVERY 6 HOURS NEEDED FOR SEVERE PAIN FOR 3 DAYS active Not Available Not Available N ot Available pen needle, diabetic 31 gauge x 1/4 once a day 30 days active Not Available Not Available No t Available Accu-Chek Safe-T-Pro Plus 23 gauge check TWICE DAILY DIRECTED active Not Available Not Available No t Available Nyamyc 100,000 unit/gram topical powder APPLY 1 appLICATION topically 3 times a day 14 days active Not Available Not Available No t Available Stimulant Laxative Plus 8.6 mg-50 mg tablet TAKE ONE TABLET BY MOUTH TWICE DAILY active Not Available Not Available No t Available Jardiance 10 mg tablet TAKE ONE TABLET BY MOUTH EVERY DAY active Not Available Not Available No t Available Entresto 24 mg-26 mg tablet TAKE ONE TABLET BY MOUTH TWICE DAILY active Not Available Not Available No t Available Basaglsamir KwikPen U-100 Insulin 100 unit/mL (3 mL) subcutaneous inject 45 units subcutaneou sly once a day 30 days active Not Available Not Available Not Available BD Ultra-Fine Micro Pen Needle 32 gauge x 1/4 use once a day for 30 days active Not Available Not Available No t Available OneTouch Delica Plus Lancet 33 gauge USE TWICE DAILY FSBS TESTING DIRECTED active Not Available Not Available No t Available Vitals Date Recorded Heart rate Oxygen saturation Oxygen saturation in Arterial blood by Pulse oximetry Body temperature Body weight Systolic And Diastolic Provider Name and Address Organization Details Last Updated DateTime 4 81 /min 98 % 98 % 96.7 [degF] 596078. 91 g 125/54 mm[Hg] Tessie MARTINEZ - LPNT - [place] & [place] 10:06:39 Social History None recorded. Functional Status None recorded. Mental Status None recorded. Family History Nothing Reported. Medical History No medical history recorded. Past Encounters Encounter ID Performer Location Encounter Start Date Encounter Closed Date Diagnosis/Indication Diagnosis SNOMED-CT Code Diagnosis ICD10 Code Diagnosis Note [id number] Radha Zamorano[place] in, DIE PRESSER [facility] Infectiou s Disease -[address] [place] [address] 08/25/2024 09:56:17 08/25/2024 12:23:58 Cellulitis of left lower limb [id number] 4378964 L03.116 It is my recommenda tion that the patient be admitted at [facility] via EMS. He will likely need an amputation to resolve this infection. He is not agreeable to this. At the least he will need IV antibiotic s and is unable to do this outpatient because of transporta tion issues. He was treated at [facility] and his surgery was performed by Dr. Faust. All questions answered. This plan was also discussed in detail with Dr. Jaspreet Oneal. Bacterial infection caused by Klebsiella pneumoniae 991449144 B96.1 see above Infection caused by Pseudomonas aeruginosa 87489535 B96.5 see above History of amputation of left foot 2258044917 3949542 Z89.432 s/p left TMA. History of amputation of right lower limb 4042724202 35693 Z89.9 see above Health Concerns Section Related Observation LastModified by Organization Detai ls LastModified Time None Recorded Concern Status LastModified by Organization Details LastModified Time None Recorded Advance Directives Directive None Recorded Payers Insurance Date Sequence Insurance Name Policy Number Policy Person Covered Member ID Person Member ID Guarantor Name 08/29/2024 1 [employer] (MEDICARE REPLACEMENT/ ADVANTAGE - PPO) Vitaly Pool [id number] Vitaly Pool 08/29/2024 1 [employer] [place] Pool [id number] V[place]y Pool 09/18/2021 1 [place] [id number] Vitaly Pool Notes Date Note Type Note Provider Name and Address Organization Details Recorded Time 08/25/2024 text/html patient presents to clinic for referral for left lower extremity cellulitis s/p left TMA. Patient was seen by [facility] podiatry clinic and surgery was performed by Dr. Faust at [facility]. Patient has taken multiple antibiotics with no improvement. Today he presents with a wound vac in place on left LE. He arrives on a stretcher with EMS at side. He is unsure what antibiotic he is currently on. He thinks it is Levofloxacin. he is receiving wound care weekly on mondays. Last cultures grew Klebsiella pneumoniae and pseudomonas aeruginosa. Radha De La Fuente, DIE PRESSER [address], [place], [address], [place] - [facility]NT - [place] & [place] 08/25/2024 11:23:29
--- OUTSIDE RECORDS SUMMARY | 2025-03-15 11:20 | XMS_ITS | Encounter Summary ---
Author Organization [employer] ([place], [place], [place], [place]) Address [address] [place] [address] Care Team Providers Care Loan Documents Closer Name Role Phone Unavailable Primary Care Provider Unavailabl e Encounter Details Date Type Department Care Team (Late st Contact Info) Description 12/26/2021 Transcribed Document [facility] Family Medicine [facility] [place] [address] ProviderDario MD [address] [place], [place] [id number] Social History Tobacco Use Types Packs/Day Years Used Date Smoking Tobacco: Never Assessed Sex and Gender Information Value Date Recorded Sex Assigned at Not on file Legal Sex Male 5:38 PM CDT Gender Identity Not on file Sexual Orientation Not on file documented as of this encounter Miscellaneous Notes * Cerner Conversion Note - Dario ProviderMD - 12/26/2021 12:07 PM CDT UM Authorization Entered On: 12/26/2021 12:10 EDT Performed On: 12/26/2021 12:07 EDT by CARMEN TRENT, Director Multimedia Primary Insurance Authorization Authorization and Policy Numbers : Insurance 1 Health Plan: [employer] MEDICARE Policy Number: [id number] Authorization Number: Insurance Primary Name : [employer] MANAGED MEDICARE Policy Number: [id number] Authorization Status-Primary : Certified in total Reference Number-Primary : [id number] Authorization Number-Primary : [id number] Number of Days Authorized-Primary : 11 Day(s) Authorized Service Begin Date-Primary : 12/24/2021 EDT Authorized Service End Date-Primary : 01/04/2022 EDT Authorization Comments-Primary : cont stay approved per fax from [facility] 12/26/21 NRD 01/05/22 Historical Authorization Comments-Primary : Comment 1: c/s clinicals faxed via [facility], auth remains under review on [employer] portal (DIONNE SCHAFFER, RN-UTILIZATION MANAGEMENT REVIEW NON-EXEMPT 12/26/2021 09:20) Comment 2: Clinicals submitted on [employer] website for IP approval (JODY MUÑOZ RN 12/25/2021 08:50) CARMEN TRENT, Director Multimedia - 12/26/2021 12:07 EDT Electronically signed by [facility] Conversion Manager Insurance Cerner at 12/29/2022 4:55 PM CDT documented in this encounter Plan of Treatment Not on file documented as of this encounter Visit Diagnoses Not on filedocumented in this encounter
--- OUTSIDE RECORDS SUMMARY | 2025-03-15 11:20 | XMS_ITS | Clinical Summary ---
Author Organization [employer] ([place], [place], [place], [place]) Address [address] [place] [address] Care Team Providers Care Registered Nurse Float Pool Name Role Phone Unavailable Primary Care Provider Unavailabl e Encounters Date Type Department Care Team Description 01/23/2025 Orders Only [facility] Reference Lab - [facility] [address] [place] [address] Gustavo Leggett MD from Last 3 Months Social History Tobacco Use Types Packs/Day Years Used Date Smoking Tobacco: Never Assessed Sex and Gender Information Value Date Recorded Sex Assigned at Not on file Legal Sex Male 5:38 PM CDT Gender Identity Not on file Sexual Orientation Not on file Plan of Treatment Not on file Procedures Procedure Name Priority Date/Time Associated Diagnosis Comments RESULT Routine 01/23/2025 4:40 PM EDT MICROSCOPIC EXAMINATION Routine 01/23/2025 4:40 PM EDT URINALYSIS W/ MICROSCOPIC Routine 01/23/2025 4:40 PM EDT URINE CULTURE, ROUTINE Routine 01/23/2025 4:40 PM EDT from Last 3 Months Results * (ABNORMAL) RESULT (01/23/2025 4:40 PM [...] - 01/27/2025 4:07 PM EDT Performed at: [address] [place] [id number] Flight Engineer Inspector: Michael Roland PhD, Phone: [phone] Gustavo Leggett MD PATHOLOGY/CYTOLOGY ORDERABLE S Final Result Performing Organization Address [facility] de Phone Number [email or web address] * (ABNORMAL) [...] - 01/27/2025 4:07 PM EDT Performed at: [address] [place] [id number] Flight Engineer Inspector: Michael Roland PhD, Phone: [phone] Gustavo Leggett MD PATHOLOGY/CYTOLOGY ORDERABLE S Final Result Performing Organization Address [facility] de Phone Number [facility] * (ABNORMAL) URINE CULTURE, ROUTINE (01/23/2025 4:40 PM EDT) Pathologist [facility] Urine Culture, Routine Final report(A) [facility] 01/23/2025 4:40 PM EDT 01/23/2025 Comment:UR Narrative [facility] - 01/27/2025 4:07 PM EDT Performed at: [address] [place] [address] [id number] Flight Engineer Inspector: Michael Roland PhD, Phone: [phone] Gustavo Leggett MD MICROBIOLOGY - GENERAL ORDER SEB Final Result Performing Organization Address [facility] de Phone Number [facility] * (ABNORMAL) Urinalysis w/Microscopic (01/23/2025 4:40 PM EDT) Pathologist [facility] Specific [place], UA 1.019 1.005 - 1.030 [facility] pH, [...] - 01/27/2025 4:07 PM EDT Performed at: [address] [place] [id number] Flight Engineer Inspector: Michael Roland PhD, Phone: [phone] Resulting Agency Comment SRC:UR Gustavo Leggett MD URINE ORDERABLES Final Resul t Performing Organization Address City/[facility] Co de Phone Number [facility] from Last 3 Months
--- OUTSIDE RECORDS SUMMARY | 2025-03-15 11:20 | XMS_ITS | Encounter Summary ---
Author Organization [email or web address] ([place], [place], [place], [place]) Address [address] [place] [address] Care Team Providers Care Cafe Worker Name Role Phone Unavailable Primary Care Provider Unavailabl e Encounter Details Date Type Department Care Team (Late st Contact Info) Description 12/26/[address] [facility] Family Medicine [facility] [address] ProviderDario MD [address] [place], [place] [address] Social History Tobacco Use Types Packs/Day Years Used Date Smoking Tobacco: Never Assessed Sex and Gender Information Value Date Recorded Sex Assigned at Not on file Legal Sex Male 5:38 PM CDT Gender Identity Not on file Sexual Orientation Not on file documented as of this encounter Miscellaneous Notes * Cerner Conversion Note - Historical Provider, - 12/26/2021 4:22 PM CDT Treatment Intervention, OT Entered On: 12/31/2021 12:31 EDT Performed On: 12/31/2021 10:08 EDT by JERSON MCGRAW OTR/Silva General Information, OT Visit Type, OT : Treatment Note Patient Orders : Order Date Order Ordering 12/24/2021 18:03 OT Evaluation and Treatment Ordered By: INGRID ELLSWORTH PA-FAM 12/26/2021 16:22 OT Additional Treatment Ordered By: Active Diagnoses : 12/24/2021 12:00 Seizure 12/24/2021 12:00 Seizure - Recurrent Therapy Diagnosis, OT : seen for decrease in I with ADLs due to seizures and general debilitation Admission Date : 12/24/2021 13:29 Co-treated by, OT : Physical Therapist Personal Devices : Personal Devices No Devices Recorded Assistive Devices : Assistive Devices No Devices Recorded Precautions in Place : Seizure precautions JERSON MCGRAW OTR/L - 12/31/2021 12:27 EDT General Status Patient Received Status : Supine in bed Treatment Start Time : 12/31/2021 9:42 EDT Patient Left Status : Supine in bed, RN/PCT informed, All needs met and within reach RN/PCT Informed Comment : JESSEE Yi Treatment End Time : 12/31/2021 10:08 EDT Treatment Time : 26 Minute(s) JERSON MCGRAW OTR/L - 12/31/2021 12:27 EDT Self Care/Home Management, OT Toileting Assist Level : Assist, maximal JERSON MCGRAW OTR/L - 12/31/2021 12:27 EDT Functional Mobility Mobility Grid Bed Roll Left : Rehab Minimal assistance Bed Roll Right : Rehab Minimal assistance Supine to Sit : Rehab Maximal assistance (Comment: x2 [JERSON MCGRAW OTR/L - 12/31/2021 12:27 EDT] ) Sit to Supine : Rehab Maximal assistance (Comment: x2 [JERSON MCGRAW OTR/L - 12/31/2021 12:27 EDT] ) JERSON MCGRAW OTR/L - 12/31/2021 12:27 EDT Plan of Care, OT OT Tx Plan/Goals Established w Patient : Yes JERSON MCGRAW OTR/Silva - 12/31/2021 12:27 EDT [facility] Goals, OT Grooming LTG Grid Goal #1 Activity : Grooming Cues : No cues Assist : Assist, minimal Date to Meet : 01/09/2022 EDT Goal Status : Initial goal Comment : sitting EOB JERSON MCGRAW OTR/Silva - 12/31/2021 12:27 EDT Toilet Transfer LTG Grid Goal #1 Activity : Toilet Transfer, Stand Pivot Sit Cues : No cues Assist : Assist, minimal Equipment : Keyshawn walker Date to Meet : 01/09/2022 EDT Goal Status : Initial goal JERSON MCGRAW OTR/Silva - 12/31/2021 12:27 EDT Bed Mobility/ Bed Transfer LTG Grid Goal #1 Activity : Bed Mobility, Supine to Sit Cues : No cues Assist : Assist, minimal Date to Meet : 01/09/2022 EDT Goal Status : Progressing, continue JERSON MCGRAW OTR/L - 12/31/2021 12:27 EDT Wheelchair Transfer LTG Grid Goal #1 Activity : Wheelchair, Standard, Sliding Board Cues : Minimum verbal cues Assist : Assist, minimal Date to Meet : 01/09/2022 EDT Goal Status : Initial goal JERSON MCGRAW OTR/L - 12/31/2021 12:27 EDT Treatment Note Subjective Comment : Pt agreeable to tx. Patient's Response to Treatment : pt tolerated session well. Additional Objective Information : pt supine in bed upon arrival. Min A to roll bilaterally x2 for new brief and chux placement due to being soiled. pt max a x2 for bed mobility to EOB. pt sat EOB ~15 minutes with intermittent min A and use of hand and foot rails for stability. Attempted sitting EOB with no UE support, able to maintain balance ~15 seconds before needing to use rails or OT help. Attempting weight shifting and reaching outside of base of support. Pt verbalizes fear of falling. Pt returned to supine and completed B UE ex x10 in all planes. Left semi supine with call light in reach and all other needs met. Assessment : pt progressing. Will continue to benefit from skilled OT. Plan for Treatment : Cont per poc. JERSON MCGRAW OTR/L - 12/31/2021 12:27 EDT Anticipated Discharge Needs, OT/PT Anticipated Discharge to : Unit, rehabilitation JERSON MCGRAW OTR/L - 12/31/2021 12:[address] [facility] OT Charges OT Selfcare/Hm Mgmt Ea 15 Min : 1 OT Ther Activities Ea 15 Min : 1 JERSON MCGRAW OTR/L - 12/31/2021 12:27 EDT documented in this encounter Plan of Treatment Not on file documented as of this encounter Visit Diagnoses Not on filedocumented in this encounter
--- OUTSIDE RECORDS SUMMARY | 2025-03-15 11:20 | XMS_ITS | Encounter Summary ---
Author Organization [employer] ([place], [place], [place], [place]) Address [address] [place] [address] Care Team Providers Care Business Practices Supervisor Name Role Phone Unavailable Primary Care Provider Unavailabl e Encounter Details Date Type Department Care Team (Late st Contact Info) Description 12/30/2021 Transcribed Document [facility] Radiology [address] [place] [address] Anali South MD [address] [facility] [address] [place] [address] Social History Tobacco Use Types Packs/Day Years Used Date Smoking Tobacco: Never Assessed Sex and Gender Information Value Date Recorded Sex Assigned at Not on file Legal Sex Male 5:38 PM CDT Gender Identity Not on file Sexual Orientation Not on file documented as of this encounter Miscellaneous Notes * Cerner Conversion Note - Anali South MD - 12/30/2021 10:07 AM EDT Patient: VITALY POOL Age: 66 years Sex: Male : 1955 Associated Diagnoses: None Author: INGRID ELLSWORTH PA-FAM CC: recurrent seizures S: Pt is doing ok. No f'/c/s. No n/v/d. (+) gas, (+) BM. No CP, SOA, palpitations. No cough or sputum. FC removed, waiting to see if can urination. Using incentive spirometer. Attending : [facility] neurology : Dr. Mcmahon, [...] or apply Heel Medix boots Apply Aloe [place] 3 (clear) or Sensicare 3 (white Zinc) [...] 300 mg = 2 Cap, Oral, TID x 3 days - parotiditis Colace 100 mg oral capsule 100 mg [...] 250 mg = 2.5 Tab, Oral, QAM (continue for now, then on 01/07 increase to 250 mg bid) LaMICtal 100 mg oral tablet 200 mg = 2 Tab, Oral, QPM (continue for now, then on 01/07 d/c 200 mg dose) Lantus 100 units/mL subcutaneous solution 6 [...] HPI: 66 YO male who presented to [facility] from [facility] secondary recurrent seizure activity. He is known to our practice from [facility]. Pt has hx of seizures, DM II, HTN, HLD, functional quadraplegia. It appears that pt had increased seizure activity in 10/2021 when at [facility] (or may have led to him going there). Keppra was added to lamictal at that time, then was hospitalized again at [facility] and dilantin was added to regimen. Despite med changes pt has continued to have seizures. It appears dilantin was low and provider had plans to start titration at [facility]. Pt had seizure for 19 min at [facility] yesterday and was still having seizure when transported by EMS. O2 sat was starting to drop. Previously he had had a seizure over 10 min. Do to recurrent seizures he was transferred here to [facility] for further work up. No records from [facility] ER were seen on pts chart. Pt says he has felt feverish. No cp, soa. Has had occ cough. Concerned about sacral/buttock wound. States that previously at [facility] it was almost healed now it is bad again. C/o pain around right parotid gland. States it was found at [facility]. States they have been swabbing his mouth with lemon juice, that helped at first but now swollen. Pt has dentures but not with him. At he was started on azithromycin and prednisone [...] and is feeling better. will continue for 3 more days. pt denies any f/c/s. NO n/v/d. No cp, soa. No cough or sputum production. eating and drinking well. Ready to d/c to [facility]. PE: Vitals Signs (last 24 hrs) Last Charted Minimum Maximum Temp 97.9 (DEC 30 02:48) 97.9 (DEC 30 02:48) 98.8 (DEC 29 10:28) Mon HR 73 (DEC 30 02:48) 73 (DEC 30 02:48) 94 (DEC 29 10:28) Resp Rate 20 (DEC 30 02:48) 16 (DEC 29 10:28) 20 (DEC 30 02:48) SBP 135 (DEC 30 02:48) 111 (DEC 29 10:28) 135 (DEC 29 22:20) DBP 80 (DEC 30 02:48) L 56 (DEC 29 15:52) 87 (DEC 29 22:20) MAP 93 (DEC 30 02:48) 66 (DEC 29 15:52) 100 (DEC 29 22:20) SpO2 100 (DEC 30 02:48) 100 (DEC 29 22:20) 100 (DEC 29 22:20) GEN: Alert, awake, NAD; resting in bed. CV: S1S2, no murmur. No LE edema Resp: CTAB, NL Abd: Soft, NT, ND +BS Skin: no rashes on inspection and palpation. Ext: No LE edema. No joint edema, erythema. Neuro: A&O x 3 Data: Labs (Last four charted values) WBC 7.6 (DEC 30) 9.3 (DEC 18) 8.4 (DEC 17) H 10.3 (DEC 16) HB L 10.8 (DEC 19) L 10.3 (DEC 18) L 10.3 (DEC 17) L 10.6 (DEC 16) HCT L 34.6 (DEC 19) L 32.6 (DEC 18) L 33.7 (DEC 17) L 33.2 (DEC 16) Plt 290 (DEC 19) 307 (DEC 18) 311 (DEC 17) 341 (DEC 16) Na 141 (DEC 19) 140 (DEC 18) 140 (DEC 17) 140 (DEC 16) K 4.6 (DEC 19) 4.1 (DEC 18) 4.6 (DEC 17) 4.2 (DEC 16) Cl 108 (DEC 19) 109 (APR 18) 110 (APR 17) 109 (DEC 16) CO2 27 (DEC 19) 25 (DEC 18) 27 (DEC 17) 25 (DEC 16) BUN 15 (DEC 19) 21 (DEC 18) 16 (DEC 17) 17 (DEC 16) Cr L 0.50 (DEC 19) 0.80 (DEC 18) L 0.40 (DEC 17) 0.80 (DEC 16) Glu R H 140 (DEC 19) H 198 (DEC 18) H 134 (DEC 17) H 237 (DEC 16) Ca 9.1 (DEC 19) 8.5 (DEC 18) 8.9 (DEC 17) 8.5 (DEC 16) Lactic 0.8 (DEC 24) AST 9 (DEC 16) 7 (DEC 24) ALT 21 (DEC 16) 27 (DEC 24) ALK P 117 (DEC 16) 129 (DEC 24) T Bili L [...] -12/25 - well controlled. A1c 6.4 Dysphagia -FIELD INVESTIGATOR eval -thickened liquids and pureed diet for now. -12/25 - passed MBS --- ok for regular diabetic diet and thin liquids -12/28 d/w pt importance of him sitting straight up when eating. Showed him how he could raise the head of the bed up. CAD s/p cardiac stent in past. PAD s/p right AKA. DVT prophylaxis -eliquis Disposition; -sent message to . Pt ready to return to snf when insurance approval and transportation is arranged. Currently waiting on Pre-Cert before return. Assessment and treatment plan made in conjunction with Daphne South MD documented in this encounter Plan of Treatment Not on file documented as of this encounter Visit Diagnoses Not on filedocumented in this encounter
--- OUTSIDE RECORDS SUMMARY | 2025-03-15 11:20 | XMS_ITS | Encounter Summary ---
Author Organization [employer] ([place], [place], [place], [place]) Address [address] [place] [address] Care Team Providers Care Thread Dresser Name Role Phone Unavailable Primary Care Provider Unavailabl e Encounter Details Date Type Department Care Team (Late st Contact Info) Description 12/26/2021 Transcribed Document [facility] Family Medicine [facility] [place] [address] ProviderDario MD [address] [place] [id number] Social History Tobacco Use Types Packs/Day Years Used Date Smoking Tobacco: Never Assessed Sex and Gender Information Value Date Recorded Sex Assigned at Not on file Legal Sex Male 5:38 PM CDT Gender Identity Not on file Sexual Orientation Not on file documented as of this encounter Miscellaneous Notes * Cerner Conversion Note - Historical ProviderMD - 12/26/2021 1:08 AM CDT Admission History, Adult Entered On: 12/26/2021 1:13 EDT Performed On: 12/26/2021 1:08 EDT by Brent Waller RN-Gledny Advance Directive Patient has Advance Directive *Q : No, patient refuses Advance Directive information Brent Waller RN-Glendy - 12/26/2021 1:08 EDT Anesthesia/Transfusion History Family History of Anesthesia Reaction : No prior transfusion(s) Transfusion History : Prior anesthesia without reaction Family History of Anesthesia Reaction : None Brent Waller RN-Glendy - 12/26/2021 1:08 EDT Functional Assessment Living Situation : Rehabilitation unit/facility Current Home Treatments : None Brent Waller RN-Resource - 12/26/2021 1:08 EDT General Info Mode of Arrival on Unit : Wheelchair Legal Guardian : Unaccompanied Support Person/Pt Rep Name : Laya Bryson Support Person/Pt Rep Contact Information : [phone] Want Family/Rep/Phys Notified of Admit : No Emergency Contact #1 : [place] Emergency Contact #1 Emergency Contact #1 Relationship : sister Emergency Contact #2 : . Emergency Contact #2 Phone Number : . Emergency Contact #2 Relationship : . Chief Complaint : pt from [facility], direct admit, pt has been having seizures the past 2 days, no hx, seizures have been lasting >10mins. here for neuro evaluation. Had seizure activity during triage lasting >2 min Information Obtained From : Patient, Other: caregiver Primary Language : Hong [place]er Communication Barrier : None Supervisor Research Shop Needed : No Brent Waller RN-Resource - 12/26/2021 1:08 EDT Fall Risk Scales ABCs Fall Injury Risk Identification : Age, Bones, Coagulation ABC Fall Injury Risk : Moderate to high injury risk Injury Moderate to High Risk Interventions : Supervise toileting as indicated, Transport methods appropriate to patient, Visual cues in place LÓPEZ Hx Falls Immediate/Within 3 Months : Yes López Secondary Diagnosis : Yes LÓPEZ Use of Ambulatory Aid : Bed rest/Nurse assist LÓPEZ IV Therapy or IV Access : Yes López Gait/Transferring : Normal, bedrest, immobile López Mental Status : Oriented to own ability López Fall Risk Score : 60 LÓPEZ Fall Scale Risk Level : 46 or > High Risk [place] Fall Interventions : Adequate lighting, Assistive devices within reach, Bed in low position, Call device within reach, Fall prevention handout/education per facility policy, Hourly comfort/safety rounds, Non-slip footwear, Personal items within reach, Reinforced to call for assistance before getting out of bed, Room free of clutter/spills, Upper side-rails up, Wheels locked, Wires/Cords secured Barriers to Learning : None evident Fall Risk Scale Calc Temp : 0 Brent Waller RN-Resource - 12/26/2021 1:08 EDT Health Histories Smoking Status : Former smoker, quit more than 30 days ago Smokeless Tobacco Status : Never Brent Waller RN-Resource - 12/26/2021 1:08 EDT Social History (As Of: 12/26/2021 01:13:53 EDT) Tobacco: Use in Last 12 Months: No. Smoking Status Former smoker. Last Used: quit 2005. (Last Updated: 01/15/2016 08:21:55 EDT by Alondra Hughes, JESSEE) Alcohol: Alcohol Use History No. (Last Updated: 01/15/2016 08:21:59 EDT by Alondra Hughes, JESSEE) Substance Abuse: Drug Use Hx: No. (Last Updated: 01/15/2016 08:22:03 EDT by Alondra Hughes, JESSEE) Height and Weight, Clinical Dosing Height Source : Stated Height Entry Format : [place] Height, Feet : 5 ft(Converted to: 152 cm, 60 Inch) Height, Inches : 10 Inch(Converted to: 0 ft 10 Inch, 25.40 cm) Clinical Height : 177.8 cm Weight Source : Bed scale Weight Entry Format : [place] Clinical Dosing Weight : 81.82 kg Weight, Pounds : 180 lb Body Surface Area (BSA) : 2 m2 Body Mass Index : 25.9 kg/m2 (HI) [place] Body Weight : 72 kg Brent Waller RN-Resource - 12/26/2021 1:08 EDT Infectious Disease History Does patient have symptoms of COVID-19? : Unable to obtain or unsure Has the Patient Been Tested for COVID-19 in the last 14 days? : Unable to obtain or unsure Does the Patient state known exposure to a COVID-19 positive case in the last 14 days? : No Patient Vaccinated for COVID-19 : Unable to obtain or unsure Brent Waller RN-Resource - 12/26/2021 1:08 EDT Infectious Disease Risk Screening Grid Cough < 2 wks of unknown origin : NO Cough > 2 weeks : NO Blood in Sputum : NO Fever or self-reported Fever : NO Rash of unknown origin : NO Headache : NO Stiff neck : NO Night Sweats : NO Unexplained Weight Loss : NO Diarrhea (3 episode per day) : NO Brent Waller RN-Resource - 12/26/2021 1:08 EDT Physical contact outside [place] in the last 30 days : No Hospitalized in Foreign Country : No Infectious Disease History : Chicken pox/Shingles, Measles INF Disease TB Screening Calc : 0 INF Disease Recent Travel Calc : 0 Brent Waller RN-Resource - 12/26/2021 1:08 EDT Influenza Vaccine Asmt, Adult Previous Vaccines from Immunization Schedule : No qualifying data available. Influenza Immunization, Current Season : Yes Brent Waller RN-Resource - 12/26/2021 1:08 EDT Pneumococcal Vaccine Previous Vaccines from Immunization Schedule : No qualifying data available. Pneumonia Immunization Received : No Pneumococcal Risk Assessment < Age 65 : N/A- Patient 65 years of age or older Pneumococcal Vaccine Contraindications : No contraindications to pneumococcal vaccine Transplant Workup/Recent Transplant : No Order for Pneumococcal Vaccine : Order for pneumococcal vaccine sent to pharmacy Brent Waller RN-Resource - 12/26/2021 1:08 EDT Order Details Order Detail : N/A IV Order Detail : 1 Oxygen Order Detail : 0 Nurse Collect Order Detail : 0 Lift/Transfer : Maximal assist Central Line Order Detail : No Room Service : Appropriate Arterial Line : No Patient Needs Meds Crushed/Liquid : No Brent Waller RN-Resource - 12/26/2021 1:08 EDT Nutrition History Eating Poorly Due to Decreased Appetite : No Unplanned Weight Loss in Past 3-6 Months : No Malnutrition Screening Tool Total(mal) : 0 Malnutrition Screening Tool Risk Level : Patient not at risk Brent Waller RN-Resource - 12/26/2021 1:08 EDT Speed Suicide Severity Rating Scale (C-SSRS) CSSRS Past Month Wish to be : No CSSRS Past Month Suicidal Thoughts : No CSSRS Lifetime Suicide Behavior : No Suicide Severity Rating Score : 0 Suicide Severity Rating : No Additional Care Required at this time Brent Waller RN-Resource - 12/26/2021 1:08 EDT Psychosocial History Do You Have a History of the Following? : Patient denies history Currently in Unsafe Situation : No Brent Waller RN-Resource - 12/26/2021 1:08 EDT Sleep Apnea Risk Assmt Hx of Obstructive Sleep Apnea Diagnosis : No Snore Loudly : Yes Tired, Fatigued, or Sleepy During Day : No Observed Stopping Breathing During Sleep : No Have/Are Being Treated for Hypertension : Yes BMI Greater Than 35 kg/m2 : No Age over 50 Years Old : Yes Neck Circumference Greater Than 40 cm : No Gender Male : Yes STOP-BANG Sleep Apnea Risk Level Score : 4 Brent Waller RN-Resource - 12/26/2021 1:08 EDT Valuables and Belongings Valuables and Belongings : No personal items Brent Waller RN-Resource - 12/26/2021 1:08 EDT documented in this encounter Plan of Treatment Not on file documented as of this encounter Visit Diagnoses Not on filedocumented in this encounter
--- OUTSIDE RECORDS SUMMARY | 2025-03-15 11:20 | XMS_ITS | Encounter Summary ---
Author Organization [employer] ([place], [place], [place], [place]) Address [address] [place] [address] Care Team Providers Care Tie Presser Name Role Phone Unavailable Primary Care Provider Unavailabl e Encounter Details Date Type Department Care Team (Late st Contact Info) Description 12/26/2021 Transcribed Document [facility] Family Medicine [facility] [place] [address] ProviderDario MD [address] [place], [place] [id number] Social History Tobacco Use Types Packs/Day Years Used Date Smoking Tobacco: Never Assessed Sex and Gender Information Value Date Recorded Sex Assigned at Not on file Legal Sex Male 5:38 PM CDT Gender Identity Not on file Sexual Orientation Not on file documented as of this encounter Miscellaneous Notes * Cerner Conversion Note - Historical Provider, - 12/26/2021 4:30 PM CDT Treatment Intervention, PT Entered On: 12/29/2021 16:46 EDT Performed On: 12/29/2021 16:21 EDT by RICHARD VASQUEZ, PT Student General Information, PT Visit Type, PT : Treatment Note Patient Orders : Order Date Order Ordering 12/24/2021 18:03 PT Evaluation and Treatment Ordered By: INGRID ELLSWORTH PA-FAM 12/26/2021 16:30 PT Additional Treatment Ordered By: THEO GARCIA, PT Active Diagnoses : 12/24/2021 12:00 Seizure 12/24/2021 12:00 Seizure - Recurrent Therapy Diagnosis, PT : Debility decreased tolerance to upright positions Admission Date : 12/24/2021 13:29 Assisted by, PT : Physical Therapist, technical associate/aide Personal Devices : Personal Devices No Devices Recorded Assistive Devices : Assistive Devices No Devices Recorded Precautions in Place : Seizure precautions RICHARD VASQUEZ PT Student - 12/29/2021 16:37 EDT General Status Patient Received Status : Supine in bed Treatment Start Time : 12/29/2021 15:50 EDT Patient Left Status : Supine in bed, Communication board completed, All needs met and within reach RN/PCT Informed Comment : PTx confirmed with RN Treatment End Time : 12/29/2021 16:21 EDT Treatment Time : 31 Minute(s) RICHARD VASQUEZ PT Student - 12/29/2021 16:37 EDT Intervention Summary BP Systolic Pre-intervention : 132 mmHg BP Diastolic Pre-intervention : 56 mmHg O2 Pre-Intervention : RA O2 During Intervention : RA O2 Post-Intervention : RA RICHARD VASQUEZ PT Student - 12/29/2021 16:37 EDT Functional Mobility Mobility Grid Bed Roll Right : Rehab Moderate assistance Bed Scooting : Rehab Maximal assistance (Comment: x2 [RICHARD VASQUEZ PT Student - 12/29/2021 16:37 EDT] ) Supine to Sit : Rehab Maximal assistance (Comment: x2 [RICHARD VASQUEZ PT Student - 12/29/2021 16:37 EDT] ) Sit to Supine : Rehab Moderate assistance (Comment: x2 [RICHARD VASQUEZ PT Student - 12/29/2021 16:37 EDT] ) RICHARD VASQUEZ PT Student - 12/29/2021 16:37 EDT Bed Roll Left : Supervision/set-up THEO GARCIA, PT - 12/29/2021 16:47 EDT Gait Training/Assessment, PT Weight Bearing Status Maintained : Yes Weight Bearing Status : Non right lower extremity Gait Assistance Level : Unable to assess/activity not appropriate (Comment: due to pt. weakness, safety [RICHARD VASQUEZ PT Student - 12/29/2021 16:37 EDT] ) RICHARD VASQUEZ PT Student - 12/29/2021 16:37 EDT Cognitive Treatment, PT Follows Basic Command Findings, PT : Pt. able to follow commands RICHARD VASQUEZ PT Student - 12/29/2021 16:37 EDT History and Environment Living Situation, Therapy : Home Patient Lives With : Alone Persons Assisting Patient at Home : Alone Professional Skilled Services : Physical Therapy Persons Providing Information : Patient Home Equipment Therapy, PT : Board, slide, Lift, mechanical, Wheelchair Home Setup : One story Stairs : Yes Stair Location(s) : Outside Outside Stairs, Number of Steps : 1 Railing Outside : No Ramp : No RICHARD VASQUEZ PT Student - 12/29/2021 16:37 EDT Edu Topics Physical Therapy Education Grid Bed Mobility Training : Needs further teaching, Returns demonstration Positioning : Returns demonstration, Needs further teaching Therapeutic Exercises : Returns demonstration, Needs further teaching Transfer Training : Returns demonstration, Needs further teaching RICHARD VASQUEZ, PT Student - 12/29/2021 16:37 EDT Indication Assesessment, PT Physical Therapy Indicated : Yes RICHARD VASQUEZ PT Student - 12/29/2021 16:37 EDT Plan of Care, PT PT Tx Plan/Goals Established w Patient : Yes RICHARD VASQUEZ PT Student - 12/29/2021 16:37 EDT Short Term Goals Mobility/Bed Mobility STG PT Grid Goal #1 Goal #2 Activity : Supine to sit Assist : Assist, moderate Date to Meet : 01/02/2022 EDT Goal Status : Progressing, continue Comment : see balance goal below RICHARD VASQUEZ PT Student - 12/29/2021 16:37 EDT RICHARD VASQUEZ PT Student - 12/29/2021 16:37 EDT Transfer STG Grid Goal #1 Destination : Chair, with arms Type : Mechanical lift Assist : Assist, maximal Date to Meet : 01/02/2022 EDT Goal Status : Intial Goal RICHARD VASQUEZ PT Student - 12/29/2021 16:37 EDT BalanceSTG Grid Goal #1 Activity : Sitting, static Assist : Assist, moderate Date to Meet : 01/02/2022 EDT Goal Status : Progressing, continue THEO GARCIA, PT - 12/29/2021 16:47 EDT Custodial Goals Mobility/Bed Mobility LTG PT Grid Goal #1 Goal #2 Activity : Supine to sit Assist : Assist, minimal Date to Meet : 01/09/2022 EDT Goal Status : Progressing, continue Comment : sitting balance goal RICHARD VASQUEZ PT Student - 12/29/2021 16:37 EDT RICHARD VASQUEZ PT Student - 12/29/2021 16:37 EDT Transfer LTG Grid Goal #1 Destination : Chair, with arms Type : Sliding board Assist : Assist, maximal Equipment : Belt, gait Date to Meet : 01/09/2022 EDT Goal Status : Intial Goal RICHARD VASQUEZ PT Student - 12/29/2021 16:37 EDT BalanceLTG Grid Goal #1 Activity : Sitting, static Assist : Assist, minimal Date to Meet : 01/09/2022 EDT Goal Status : Progressing, continue THEO GARCIA, PT - 12/29/2021 16:47 EDT Treatment Note Subjective Comment : pt. agreeable to PTx. Says he would like to sit up on the side of the bed. Additional Objective Information : Pt. supine in bed at start of session. Vitals were measured and pt. was asked to sit EOB. Pt. required max Ax2 to acheive EOB position. Pt. was able to find static sitting balance and was min A for 1 minute, but becaome quickly fatigued and fluctuated between mod and max A for static sitting balance. PT performed UE reaching in all planes, as well as knee extension and marching in place. total time EOB was 10 minutes. Pt. mod A to return to supine and TherEx was completed as follows: Roll L and R x10, Heel slide x10, diaphragmatic breathing, modified sit up x10. Assessment : Pt. tolerated PTx well today. He demonstrated increased ability to maintain static sitting balance, but is still greatly impaired. Pt. would benefit from continued skilled PTx in order to improve static sitting balance and improve ability to perform transfers and return to PLOF. RICHARD VASQUEZ PT Student - 12/29/2021 16:37 EDT Plan for Treatment : Continue current POC, progress as able. PT has reviewed PT student documentation and is in agreement. THEO GARCIA, PT - 12/29/2021 16:47 EDT Pain Assessment Pain Scaled Used : 0-10 Pain scale Pain Score Pre-Intervention : 0 Pain Score During-Intervention : 0 Pain Score Post-Intervention. : 0 RICHARD VASQUEZ PT Student - 12/29/2021 16:37 EDT Image 1 - Images currently included in the form version of this document have not been included in the text rendition version of the form. Anticipated Discharge Needs, OT/PT Anticipated Discharge to : Unit, rehabilitation, Unit, penitentiary Recommend Continued Therapy at Discharge : Yes RICHARD VASQUEZ PT Student - 12/29/2021 16:37 EDT [facility] PT Charges PT Therap. Exercise 15 min : 1 PT Ther Activities Ea 15 Min : 1 RICHARD VASQUEZ PT Student - 12/29/2021 16:37 EDT documented in this encounter Plan of Treatment Not on file documented as of this encounter Visit Diagnoses Not on filedocumented in this encounter
--- OUTSIDE RECORDS SUMMARY | 2025-03-15 11:20 | XMS_ITS | Encounter Summary ---
Author Organization [employer] ([place], [place], [place], [place]) Address [address] [place] [address] Care Team Providers Care Diesel Truck Driver Name Role Phone Unavailable Primary Care Provider Unavailabl e Encounter Details Date Type Department Care Team (Late st Contact Info) Description 12/26/2021 Transcribed Document [facility] [place] Family Medicine [facility] [place] [address] ProviderDario MD [address] [id number] Social History Tobacco Use Types Packs/Day Years Used Date Smoking Tobacco: Never Assessed Sex and Gender Information Value Date Recorded Sex Assigned at Not on file Legal Sex Male 5:38 PM CDT Gender Identity Not on file Sexual Orientation Not on file documented as of this encounter Miscellaneous Notes * Cerner Conversion Note - Historical ProviderMD - 12/26/2021 10:38 AM CDT Patient: VITALY POOL Age: 66 years Sex: Male : 1955 Associated Diagnoses: None Author: CHAVA OCHOA MD-NORMA Subjective Pt is doing well, denies any new issues; 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 Eye: Pupils are equal, round and reactive to light, Extraocular movements are intact. Respiratory: Respirations are non-labored. Cardiovascular: Normal rate, Regular rhythm. 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 Sensation intact, no ataxia. Psychiatric: Cooperative. Results Review EEG- no seizures recorded; bitemporal sharp waves noted. I reviewed study and discussed with Dr. Amezcua Labs reviewed; dilantin level 6.2 today Impression and Plan 66yo M with h/o seizures admitted with increased seizure frequency from his rehab facility; he had been admitted to in October also for intractable seizures and had addition of Keppra and Dilantin as he was already taking Lamictal. 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 He does have subtherapeutic Dilantin level, will consider increasing dose (likely to 100mgAM/100mg afternoon/200mgPM) but will hold off for now to continue EEG monitoring. I will keep him on EEG for another day, plan discussed with patient; he is agreeable. Neurology will continue to follow. documented in this encounter Plan of Treatment Not on file documented as of this encounter Visit Diagnoses Not on filedocumented in this encounter
--- OUTSIDE RECORDS SUMMARY | 2025-03-15 11:20 | XMS_ITS | Encounter Summary ---
Author Organization [employer] ([place], [place], [place], [place]) Address [address] [place] [address] Care Team Providers Care Equal Opportunity Specialist Name Role Phone Unavailable Primary Care Provider Unavailabl e Encounter Details Date Type Department Care Team (Late st Contact Info) Description 12/26/2021 Transcribed Document [facility] [place] [facility] [place] [address] ProviderDario MD [address] [id number] Social History Tobacco Use Types Packs/Day Years Used Date Smoking Tobacco: Never Assessed Sex and Gender Information Value Date Recorded Sex Assigned at Not on file Legal Sex Male 5:38 PM CDT Gender Identity Not on file Sexual Orientation Not on file documented as of this encounter Miscellaneous Notes * Cerner Conversion Note - Dario ProviderMD - 12/26/2021 9:20 AM CDT UM Authorization Entered On: 12/26/2021 9:23 EDT Performed On: 12/26/2021 9:20 EDT by DIONNE SCHAFFER RN-UTILIZATION MANAGEMENT REVIEW NON-EXEMPT Primary Insurance Authorization Authorization and Policy Numbers : Insurance 1 Health Plan: [employer] MANAGED MEDICARE Policy Number: [id number] Authorization Number: Insurance Primary Name : [employer] MANAGED MEDICARE Policy Number: [id number] Authorization Status-Primary : Awaiting callback Reference Number-Primary : [id number] Authorization Number-Primary : [id number] Authorized Service Begin Date-Primary : 12/24/2021 EDT Authorization Comments-Primary : c/s clinicals faxed via [employer], auth remains under review on [employer] portal Historical Authorization Comments-Primary : Comment 1: Clinicals submitted on [facility] website for IP approval (JODY MUÑOZ RN 12/25/2021 08:50) DIONNE SCHAFFER RN-UTILIZATION MANAGEMENT REVIEW NON-EXEMPT - 12/26/2021 9:20 EDT documented in this encounter Plan of Treatment Not on file documented as of this encounter Visit Diagnoses Not on filedocumented in this encounter
--- OUTSIDE RECORDS SUMMARY | 2025-03-15 11:20 | XMS_ITS | Referral Summary ---
Author Organization [employer] ([place], [place], [place], [place]) Address [address] [place] [address] Care Team Providers Care Gasoline Locomotive Crane Operator Name Role Phone Unavailable Primary Care Provider Unavailabl e Encounters Date Type Department Care Team Description 01/23/2025 Orders Only [facility] - [facility] [address] [place] [address] Gustavo Leggett MD from Last [...] - 01/27/2025 4:07 PM EDT Performed at: [address] [place] [id number] Biogeographer: Michael Roland PhD, Phone: [phone] Gustavo Leggett MD PATHOLOGY/CYTOLOGY ORDERABLE S Final Result Performing Organization Address [facility] de Phone Number [facility] [...] - 01/27/2025 4:07 PM EDT Performed at: [address] [place] [id number] Biogeographer: Michael Roland PhD, Phone: [phone] Gustavo Leggett MD PATHOLOGY/CYTOLOGY ORDERABLE S Final Result Performing Organization Address [facility] de Phone Number [facility] * (ABNORMAL) URINE CULTURE, ROUTINE (01/23/2025 4:40 PM EDT) Pathologist [facility] Urine Culture, Routine Final report(A) [facility] 01/23/2025 4:40 PM EDT 01/23/2025 Comment:UR Narrative [facility] - 01/27/2025 4:07 PM EDT Performed at: [address] [place] [id number] Biogeographer: Michael Roland PhD, Phone: [phone] Gustavo Leggett MD MICROBIOLOGY - GENERAL ORDER SEB Final Result Performing Organization Address [facility] de Phone Number [facility] * (ABNORMAL) Urinalysis w/Microscopic (01/23/2025 4:40 PM EDT) Pathologist [facility] Specific [place], UA 1.019 1.005 - 1.030 [facility] pH, [...] - 01/27/2025 4:07 PM EDT Performed at: [address] [place] [id number] Biogeographer: Michael Roland PhD, Phone: [phone] Resulting Agency Comment SRC:UR Gustavo Leggett MD URINE ORDERABLES Final Resul t Performing Organization Address [facility] Co de Phone Number [facility] from Last 3 Months
--- OUTSIDE RECORDS SUMMARY | 2025-03-15 11:20 | XMS_ITS | Encounter Summary ---
Author Organization [employer] ([place], [place], [place], [place]) Address [address] [place] [address] Care Team Providers Care Inbound Sales Representative Name Role Phone Unavailable Primary Care Provider Unavailabl e Encounter Details Date Type Department Care Team (Late st Contact Info) Description 12/27/2021 Transcribed Document [facility] Rad[facility] [address] [place] [address] Robert South MD [address] [facility] [address] [place] [address] Social History Tobacco Use Types Packs/Day Years Used Date Smoking Tobacco: Never Assessed Sex and Gender Information Value Date Recorded Sex Assigned at Not on file Legal Sex Male 5:38 PM CDT Gender Identity Not on file Sexual Orientation Not on file documented as of this encounter Miscellaneous Notes * Cerner Conversion Note - Robert South MD - 12/27/2021 2:10 PM EDT Patient: VITALY POOL Age: 66 years Sex: Male : 1955 Associated Diagnoses: None Author: ROBERT SOUTH MD-INT CC: recurrent seizures S: doing ok. No seizures. feels improved; (R) parotid improved, less tender HPI: 66 YO male who presented to [facility] from [facility] secondary recurrent seizure activity. He is known to our practice from [facility]. Pt has hx of seizures, DM II, HTN, HLD, functional quadraplegia. It appears that pt had increased seizure activity in 10/2021 when at [facility] (or may have led to him going there). Keppra was added to lamictal at that time, then was hospitalized again at [facility] and dilantin was added to regimen. Despite med changes pt has continued to have seizures. It appears dilantin was low and provider had plans to start titration at [facility]. Pt had seizure for 19 min at [facility] yesterday and was still having seizure when transported by EMS. O2 sat was starting to drop. Previously he had had a seizure over 10 min. Do to recurrent seizures he was transferred here to [facility] for further work up. No records from [facility] ER were seen on pts chart. Pt says he has felt feverish. No cp, soa. Has had occ cough. Concerned about sacral/buttock wound. States that previously at [facility] it was almost healed now it is [...] for parotid swelling. Prior hospitalizations: 11/2721-12/18/21 - [facility] - pt was unrepsonsive at [facility] and went to ER. Dc summary said [...] also of 50 mg q8h. 08/2021 - [facility] -- Right foot gangrene, s/p right AKA [...] Last Charted Minimum Maximum Temp 97.8 (DEC 16 10:47) 97.8 (DEC 27 10:47) 98.2 (DEC 26 17:25) Mon HR 96 (DEC 27 10:47) 75 (DEC 27 00:00) 107 (DEC 27 03:00) Resp Rate 20 (DEC 27 10:47) L 13 (DEC 27 03:00) 20 (DEC 27 10:47) SBP 120 (DEC 27 10:47) 99 (DEC 26 17:25) 127 (DEC 26 20:00) DBP 65 (DEC 27 10:47) L 55 (DEC 27 03:00) 79 (DEC 26 20:00) MAP 74 (DEC 27 10:47) 71 (DEC 27 03:00) 93 (DEC 26 20:00) SpO2 94 (DEC 27 10:47) 94 (DEC 27 10:47) 99 (DEC 27 00:00) WM in NAD, with EEG electrodes applied, pleasant cooperative bs cta [id number] abd soft, nt no leg swelling Data: Labs (Last four charted values) WBC H 10.3 (DEC 16) H 9.7 (DEC 15) H 10.8 (DEC 14) H 12.2 (DEC 13) HB L 10.6 (DEC 16) L 10.6 (DEC 15) L 11.3 (DEC 14) L 12.2 (DEC 13) HCT L 33.2 (DEC 16) L 34.0 (DEC 15) L 35.9 (DEC 14) L 38.1 (DEC 13) Plt 341 (DEC 16) 342 (DEC 15) 352 (DEC 14) H 413 (DEC 13) Na 140 (DEC 16) 137 (DEC 15) 136 (DEC 14) L 133 (DEC 13) K 4.2 (DEC 16) 4.3 (DEC 15) 4.4 (DEC 14) H 5.2 (DEC 13) Cl 109 (DEC 16) 108 (DEC 15) 105 (DEC 14) 103 (DEC 13) CO2 25 (DEC 16) 25 (DEC 15) 26 (DEC 14) 26 (DEC 13) BUN 17 (APR 16) 18 (APR 15) 14 (DEC 25) 13 (DEC 24) Cr 0.80 (DEC 16) 0.70 (DEC 15) L 0.60 (DEC 25) L 0.50 (DEC 24) Glu R H 237 (DEC 16) H 129 (DEC 15) H 145 (DEC 14) H 177 (DEC 24) Ca 8.5 (DEC 27) 8.9 (DEC 15) 9.2 (DEC 25) 9.3 (DEC 24) Lactic 0.8 (DEC 24) AST 9 (DEC 27) 7 (DEC 24) ALT 21 (DEC 27) [...] -12/25 - well controlled. A1c 6.4 Dysphagia -EDGER MACHINE HELPER eval -thickened liquids and pureed diet for [...]
[2025-03-15 11:21] LABS: Microscopic, Urine URINE MICROSCOPIC (MICROSCOPIC)
[2025-03-15 11:46] LABS: Bilirubin,Urine Negative (Negative); Color,Urine YELLOW (Yellow); Glucose,Urine (UA) Negative (Negative); Ketones,Urine Negative (Negative); Leukocyte Esterase,Urine 3+ (Negative); PH,Urine 8.5 (5.0-8.5); Protein,Urine 1+ (Negative); Specific Gravity, Urine 1.015 (1.005-1.030); Urobilinogen,Urine 0.2 EU/dl (0.2)
[2025-03-15 12:07] LABS: Bacteria,Urine 2+ /lpf
--- OUTSIDE RECORDS SUMMARY | 2025-03-22 20:00 | XMS_ITS | Clinical Summary ---
Author Organization [facility] Address [address] [place] [phone] Phone Care Team Providers Care Oleo Hasher And Renderer Name Role Phone TYSON MURILLO, YUMIKO Unavailable Unavailable SHERRIE OT, YUMI Unavailable Unavailable ANA HOOKS, KASHIF Unavailable Unavailable MARIAM PT, LE Unavailable Unavailable Payers Payer Name Policy Type Policy Number Effective Date Expira tion Date Problems Condition Name Condition Details Condition Category Status Onset Date Resolution Date Last Treatment Date Treating Clinician Comments TYPE 2 DIABETES MELLITUS WITH FOOT ULCER Active 11-20 00:00: 00 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 Active 11-20 00:00: 00 TYPE 2 DIABETES W DIABETIC PERIPHERAL ANGIOPATH W/O GANGRENE Active 09-25 00:00: 00 TYPE 2 DIABETES MELLITUS WITH DIABETIC POLYNEUROPAT HY Active 09-25 00:00: 00 HYPERTENSIVE HEART DISEASE WITH HEART FAILURE Active 09-25 00:00: 00 HEART FAILURE, UNSPECIFIED Active 09-25 00:00: 00 UNSPECIFIED ATRIAL FLUTTER Active 09-25 00:00: 00 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 Active 09-20 00:00: 00 GASTROPARESI S Active 09-20 00:00: 00 RADIO HOST (CURRENT) USE OF INSULIN Active 09-25 00:00: 00 ACQUIRED ABSENCE OF RIGHT LEG BELOW KNEE Active 09-25 00:00: 00 SPINAL STENOSIS, CERVICAL REGION Active 09-25 00:00: 00 SPINAL STENOSIS, LUMBAR REGION WITHOUT NEUROGENIC LEA Active 09-25 00:00: 00 MIXED HYPERLIPIDEM IA Active 09-25 00:00: 00 MIGRAINE, UNSP, NOT INTRACTABLE, WITHOUT STATUS MIGRAINOSUS Active 09-25 00:00: 00 ANEMIA, UNSPECIFIED Active 09-25 00:00: 00 ATHSCL HEART DISEASE OF [place] CORONARY ARTERY W/O ANG PCTRS Active 09-25 00:00: 00 OLD MYOCARDIAL INFARCTION Active 09-25 00:00: 00 BENIGN PROSTATIC HYPERPLASIA WITH LOWER URINARY TRACT SYMP Active 09-25 00:00: 00 OTHER RETENTION OF URINE Active 09-25 00:00: 00 OBESITY, UNSPECIFIED Active 09-25 00:00: 00 BODY MASS INDEX [BMI]30.0-30 .9, ADULT Active 09-25 00:00: 00 ENCOUNTER FOR FITTING AND ADJUSTMENT OF URINARY DEVICE Active 09-25 00:00: 00 RADIO HOST (CURRENT) USE OF ASPIRIN Active 09-25 00:00: 00 RADIO HOST (CURRENT) USE OF 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 ICS/ANTIPLAT ELETS Active 09-25 00:00: 00 PRESENCE OF AORTOCORONAR Y BYPASS GRAFT Active 09-25 00:00: 00 PERSONAL HISTORY OF OTHER VENOUS THROMBOSIS AND EMBOLISM Active 09-25 00:00: 00 PERSONAL HISTORY OF PNEUMONIA (RECURRENT) Active 09-25 00:00: 00 HISTORY OF FALLING Active 09-25 00:00: 00 EXTENDED SPECTRUM BETA LACTAMASE (ESBL) RESISTANCE Active 09-25 00:00: 00 PERSONAL HISTORY OF METHICILLIN RESIS STAPH INFECTION Active 09-25 00:00: 00 DEPENDENCE ON WHEELCHAIR Active 09-25 00:00: 00 Allergies, Adverse Reactions, Alerts Allergy Name Allergy Type Status Severity Reaction(s) Onset Date Inactive Date Treating Clinician Comments CODEINE Propensity to adverse reactions Active 09-25 11:01: 53 WELLBUTRIN Propensity to adverse reactions Active 09-25 11:01: 44 TRAMADOL Propensity to adverse reactions Active 09-25 11:01: 30 KETOROLAC TROMETHAMINE Propensity to adverse reactions Active 10-03 07:07: 16 LORTAB Propensity to adverse reactions Active 09-25 11:01: 59 KEPPRA Propensity to adverse reactions Active 09-25 11:01: 37 Medications Ordered Medication Name Filled Medication Name Start Date Stop Date Current Medication? Ordering Clinician Indication Dosage Frequency Signature (SIG) Comments Components Aspirin Childrens 81 mg chewable tablet 09-25 00:00: 00 Yes [id number] HEART DISEASE 1 tablet DAILY 1 tablet DAILY (route: oral) Med Classific ation: Hematolog ical Agents baclofen 10 mg tablet 09-25 00:00: 00 Yes [id number] MUSCLE SPASMS 1 tablet 2 TIMES DAILY 1 tablet 2 TIMES DAILY (route: oral) Med Classific ation: Locomotor System Basaglar KwikPen U-100 Insulin 100 unit/mL (3 mL) subcutaneou s 09-25 00:00: 00 Yes [id number] DIABETIC 42 unit BEDTIME 42 unit BEDTIME (route: subcutaneo ) Med Classific ation: Endocrine Cherelle Back and Body 500 mg-32.5 mg tablet 09-25 00:00: 00 Yes [id number] PAIN 1 tablet NEEDED 1 tablet NEEDED (route: oral) Med Classific ation: Analgesic , Anti-infl ammatory or Antipyret ic carvedilol 3.125 mg tablet 09-25 00:00: 00 Yes [id number] HEART RATE 1 tablet 2 TIMES DAILY 1 tablet 2 TIMES DAILY (route: oral) Med Classific ation: Cardiovas cular Therapy Agents clopidogrel 75 mg tablet 09-25 00:00: 00 Yes [id number] BLOOD THINNER 1 tablet DAILY 1 tablet DAILY (route: oral) Med Classific ation: Hematolog ical Agents folic acid 1 mg tablet 09-25 00:00: 00 Yes [id number] SUPPLEMENT 1 tablet DAILY 1 tablet DAILY (route: oral) Med Classific ation: Electroly te Balance-N utritiona l Products furosemide 40 mg tablet 09-25 00:00: 00 Yes [id number] FLUID 1 tablet DAILY 1 tablet DAILY (route: oral) Med Classific ation: Cardiovas cular Therapy Agents gabapentin 100 mg capsule 09-25 00:00: 00 Yes [id number] NERVE PAIN 2 capsule 3 TIMES DAILY 2 capsule 3 TIMES DAILY (route: oral) Med Classific ation: Central Nervous System Agents lamotrigine 100 mg tablet 09-25 00:00: 00 Yes [id number] SEIZURES 1 tablet 2 TIMES DAILY 1 tablet 2 TIMES DAILY (route: oral) Med Classific ation: Central Nervous System Agents lamotrigine 150 mg tablet 09-25 00:00: 00 Yes [id number] SEIZURES 1 tablet BEDTIME 1 tablet BEDTIME (route: oral) Med Classific ation: Central Nervous System Agents levofloxaci n 750 mg tablet 09-25 00:00: 00 11-10 23:59 :00 No [id number] INFECTION 1 tablet DAILY 1 tablet DAILY (route: oral) Med Classific ation: Anti-Infe ctive Agents multivitami n tablet 09-25 00:00: 00 Yes [id number] SUPPLEMENT 1 tablet DAILY 1 tablet DAILY (route: oral) Med Classific ation: Electroly te Balance-N utritiona l Products ondansetron 4 mg disintegrat ing tablet 09-25 00:00: 00 Yes [id number] NAUSEA 1 tablet NEEDED 1 tablet NEEDED (route: oral) Med Classific ation: Gastroint estinal Therapy Agents Pacerone 400 mg tablet 09-25 00:00: 00 Yes [id number] HEART RATE 1 tablet 2 TIMES DAILY 1 tablet 2 TIMES DAILY (route: oral) Med Classific ation: Cardiovas cular Therapy Agents pantoprazol e 40 mg tablet,jossie yed release 09-25 00:00: 00 Yes [id number] ACID REFLUX 1 tablet DAILY 1 tablet DAILY (route: oral) Med Classific ation: Gastroint estinal Therapy Agents amoxicillin 875 mg-potassiu m clavulanate 125 mg tablet 01-31 00:00: 00 02-07 23:59 :00 No [id number] UTI 1 tablet EVERY AM 1 tablet EVERY AM (route: oral) Med Classific ation: Anti-Infe ctive Agents levofloxaci n 500 mg tablet 2025-0 6-14 00:00: 00 03-10 23:59 :00 No [id number] DYSURIA 1 tablet DAILY 1 tablet DAILY (route: oral) Med Classific ation: Anti-Infe ctive Agents Vital Signs Vital Name Observation Time Observation Value Commen ts Temperature 2025-03-15 09:56:00.000 97.9 [degF] Temperature 2025-03-14 12:10:00.000 97.6 [degF] Temperature 2025-03-13 18:14:00.000 97.6 [degF] Temperature 2025-03-12 13:35:00.000 97.9 [degF] Temperature 2025-03-09 10:24:00.000 97.8 [degF] Temperature 2025-03-06 19:10:00.000 98.5 [degF] Temperature 2025-03-06 14:01:00.000 98 [degF] Temperature 2025-03-01 10:47:00.000 97.6 [degF] Temperature 2025-02-27 17:39:00.000 97.6 [degF] Temperature 2025-02-27 14:56:00.000 98.1 [degF] Temperature 2025-02-22 10:35:00.000 97.7 [degF] Temperature 2025-02-20 16:55:00.000 97.8 [degF] Temperature 2025-02-20 12:49:00.000 97.9 [degF] Temperature 2025-02-16 13:06:00.000 97.7 [degF] Temperature 2025-02-13 19:48:00.000 97.7 [degF] Temperature 2025-02-13 11:55:00.000 97.5 [degF] Temperature 2025-02-09 12:35:00.000 97.5 [degF] Temperature 2025-02-06 13:21:00.000 98.5 [degF] Temperature 2025-02-06 09:54:00.000 97.3 [degF] Temperature 2025-02-02 12:42:00.000 97.6 [degF] Temperature 2025-01-30 13:29:00.000 97.6 [degF] Temperature 2025-01-30 10:22:00.000 98.5 [degF] Temperature 2025-01-25 09:04:00.000 97.8 [degF] Temperature 2025-01-23 12:53:00.000 98.4 [degF] Temperature 2025-01-23 09:11:00.000 97.8 [degF] Pulse 2025-03-15 09:56:00.000 76 /min Pulse 2025-03-14 12:10:00.000 77 /min Pulse 2025-03-13 18:14:00.000 78 /min Pulse 2025-03-12 13:35:00.000 76 /min Pulse 2025-03-09 10:24:00.000 84 /min Pulse 2025-03-06 19:10:00.000 86 /min Pulse 2025-03-06 14:01:00.000 86 /min Pulse 2025-03-01 10:47:00.000 83 /min Pulse 2025-02-27 17:39:00.000 76 /min Pulse 2025-02-27 14:56:00.000 84 /min Pulse 2025-02-22 10:35:00.000 77 /min Pulse 2025-02-20 16:55:00.000 78 /min Pulse 2025-02-20 12:49:00.000 78 /min Pulse 2025-02-16 13:06:00.000 77 /min Pulse 2025-02-13 19:48:00.000 60 /min Pulse 2025-02-13 11:55:00.000 78 /min Pulse 2025-02-09 12:35:00.000 85 /min Pulse 2025-02-06 13:21:00.000 74 /min Pulse 2025-02-06 09:54:00.000 81 /min Pulse 2025-02-02 12:42:00.000 81 /min Pulse 2025-01-30 13:29:00.000 74 /min Pulse 2025-01-30 10:22:00.000 74 /min Pulse 2025-01-25 09:04:00.000 77 /min Pulse 2025-01-23 12:53:00.000 74 /min Pulse 2025-01-23 09:11:00.000 78 /min O2 Saturation (%) 2025-03-15 09:56:00.000 98 % O2 Saturation (%) 2025-03-14 12:10:00.000 98 % O2 Saturation (%) 2025-03-13 18:14:00.000 96 % O2 Saturation (%) 2025-03-12 13:35:00.000 97 % O2 Saturation (%) 2025-03-09 10:24:00.000 99 % O2 Saturation (%) 2025-03-06 19:10:00.000 95 % O2 Saturation (%) 2025-03-06 14:01:00.000 98 % O2 Saturation (%) 2025-03-01 10:47:00.000 98 % O2 Saturation (%) 2025-02-27 17:39:00.000 95 % O2 Saturation (%) 2025-02-27 14:56:00.000 98 % O2 Saturation (%) 2025-02-22 10:35:00.000 98 % O2 Saturation (%) 2025-02-20 16:55:00.000 95 % O2 Saturation (%) 2025-02-20 12:49:00.000 96 % O2 Saturation (%) 2025-02-16 13:06:00.000 98 % O2 Saturation (%) 2025-02-13 11:55:00.000 94 % O2 Saturation (%) 2025-02-09 12:35:00.000 93 % O2 Saturation (%) 2025-02-06 13:21:00.000 96 % O2 Saturation (%) 2025-02-06 09:54:00.000 97 % O2 Saturation (%) 2025-02-02 12:42:00.000 97 % O2 Saturation (%) 2025-01-30 13:29:00.000 97 % O2 Saturation (%) 2025-01-30 10:22:00.000 98 % O2 Saturation (%) 2025-01-25 09:04:00.000 97 % O2 Saturation (%) 2025-01-23 12:53:00.000 97 % O2 Saturation (%) 2025-01-23 09:11:00.000 98 % Respirations 2025-03-15 09:56:00.000 16 /min Respirations 2025-03-14 12:10:00.000 18 /min Respirations 2025-03-13 18:14:00.000 18 /min Respirations 2025-03-12 13:35:00.000 16 /min Respirations 2025-03-09 10:24:00.000 16 /min Respirations 2025-03-06 19:10:00.000 18 /min Respirations 2025-03-06 14:01:00.000 16 /min Respirations 2025-03-01 10:47:00.000 16 /min Respirations 2025-02-27 17:39:00.000 18 /min Respirations 2025-02-27 14:56:00.000 16 /min Respirations 2025-02-22 10:35:00.000 16 /min Respirations 2025-02-20 16:55:00.000 16 /min Respirations 2025-02-20 12:49:00.000 18 /min Respirations 2025-02-16 13:06:00.000 18 /min Respirations 2025-02-13 19:48:00.000 20 /min Respirations 2025-02-13 11:55:00.000 18 /min Respirations 2025-02-09 12:35:00.000 18 /min Respirations 2025-02-06 13:21:00.000 18 /min Respirations 2025-02-06 09:54:00.000 18 /min Respirations 2025-02-02 12:42:00.000 18 /min Respirations 2025-01-30 13:29:00.000 18 /min Respirations 2025-01-30 10:22:00.000 17 /min Respirations 2025-01-25 09:04:00.000 18 /min Respirations 2025-01-23 12:53:00.000 18 /min Respirations 2025-01-23 09:11:00.000 18 /min Systolic Blood Pressure 2025-03-15 09:56:00.000 108 mm [Hg] Systolic Blood Pressure 2025-03-14 12:10:00.000 140 mm [Hg] Systolic Blood Pressure 2025-03-13 18:14:00.000 134 mm [Hg] Systolic Blood Pressure 2025-03-12 13:35:00.000 141 mm [Hg] Systolic Blood Pressure 2025-03-09 10:24:00.000 132 mm [Hg] Systolic Blood Pressure 2025-03-06 19:10:00.000 124 mm [Hg] Systolic Blood Pressure 2025-03-06 14:01:00.000 138 mm [Hg] Systolic Blood Pressure 2025-03-01 10:47:00.000 120 mm [Hg] Systolic Blood Pressure 2025-02-27 17:39:00.000 122 mm [Hg] Systolic Blood Pressure 2025-02-27 14:56:00.000 121 mm [Hg] Systolic Blood Pressure 2025-02-22 10:35:00.000 115 mm [Hg] Systolic Blood Pressure 2025-02-20 16:55:00.000 120 mm [Hg] Systolic Blood Pressure 2025-02-20 12:49:00.000 132 mm [Hg] Systolic Blood Pressure 2025-02-16 13:06:00.000 140 mm [Hg] Systolic Blood Pressure 2025-02-13 19:48:00.000 128 mm [Hg] Systolic Blood Pressure 2025-02-13 11:55:00.000 130 mm [Hg] Systolic Blood Pressure 2025-02-09 12:35:00.000 128 mm [Hg] Systolic Blood Pressure 2025-02-06 13:21:00.000 136 mm [Hg] Systolic Blood Pressure 2025-02-06 09:54:00.000 149 mm [Hg] Systolic Blood Pressure 2025-02-02 12:46:00.000 155 mm [Hg] Systolic Blood Pressure 2025-01-30 13:29:00.000 138 mm [Hg] Systolic Blood Pressure 2025-01-30 10:22:00.000 135 mm [Hg] Systolic Blood Pressure 2025-01-25 09:04:00.000 158 mm [Hg] Systolic Blood Pressure 2025-01-23 12:53:00.000 136 mm [Hg] Systolic Blood Pressure 2025-01-23 09:11:00.000 142 mm [Hg] Diastolic Blood Pressure 2025-03-15 09:56:00.000 65 mm [Hg] Diastolic Blood Pressure 2025-03-14 12:10:00.000 85 mm [Hg] Diastolic Blood Pressure 2025-03-13 18:14:00.000 78 mm [Hg] Diastolic Blood Pressure 2025-03-12 13:35:00.000 80 mm [Hg] Diastolic Blood Pressure 2025-03-09 10:24:00.000 82 mm [Hg] Diastolic Blood Pressure 2025-03-06 19:10:00.000 76 mm [Hg] Diastolic Blood Pressure 2025-03-06 14:01:00.000 81 mm [Hg] Diastolic Blood Pressure 2025-03-01 10:47:00.000 76 mm [Hg] Diastolic Blood Pressure 2025-02-27 17:39:00.000 70 mm [Hg] Diastolic Blood Pressure 2025-02-27 14:56:00.000 75 mm [Hg] Diastolic Blood Pressure 2025-02-22 10:35:00.000 70 mm [Hg] Diastolic Blood Pressure 2025-02-20 16:55:00.000 61 mm [Hg] Diastolic Blood Pressure 2025-02-20 12:49:00.000 72 mm [Hg] Diastolic Blood Pressure 2025-02-16 13:06:00.000 70 mm [Hg] Diastolic Blood Pressure 2025-02-13 19:48:00.000 66 mm [Hg] Diastolic Blood Pressure 2025-02-13 11:55:00.000 72 mm [Hg] Diastolic Blood Pressure 2025-02-09 12:35:00.000 91 mm [Hg] Diastolic Blood Pressure 2025-02-06 13:21:00.000 74 mm [Hg] Diastolic Blood Pressure 2025-02-06 09:54:00.000 94 mm [Hg] Diastolic Blood Pressure 2025-02-02 12:46:00.000 100 m m[Hg] Diastolic Blood Pressure 2025-01-30 13:29:00.000 76 mm [Hg] Diastolic Blood Pressure 2025-01-30 10:22:00.000 82 mm [Hg] Diastolic Blood Pressure 2025-01-25 09:04:00.000 85 mm [Hg] Diastolic Blood Pressure 2025-01-23 12:53:00.000 76 mm [Hg] Diastolic Blood Pressure 2025-01-23 09:11:00.000 84 mm [Hg] Plan of Care Planned Activity Planned Date Details Comments Future Scheduled Test SKILLED NU RSE FOR INSTRUCTIONS / REINFORCEMENT OF / MANAGEMENT OF DIABETES TO INCLUDE DIET, SKIN CARE, MEDICATION MANAGEMENT, BLOOD GLUCOSE TESTING AND DIABETIC FOOT CARE. [code = SKILLED NURSE FOR INSTRUCTIONS / REINFORCEMENT OF / MANAGEMENT OF DIABETES TO INCLUDE DIET, SKIN CARE, MEDICATION MANAGEMENT, BLOOD GLUCOSE TESTING AND DIABETIC FOOT CARE.] Future Scheduled Test SKILLED NU RSE TO PROVIDE SKILLED TEACHING TO PATIENT/CAREGIVER OF HYPERTENSION TO INCLUDE MEDICATION MANAGEMENT, SELF-ASSESSMENT, LOW SODIUM DIET, AND TRACKING OF BLOOD PRESSURE RESULTS. [code = SKILLED NURSE TO PROVIDE SKILLED TEACHING TO PATIENT/CAREGIVER OF HYPERTENSION TO INCLUDE MEDICATION MANAGEMENT, SELF-ASSESSMENT, LOW SODIUM DIET, AND TRACKING OF BLOOD PRESSURE RESULTS.] Future Scheduled Test SKILLED NU RSE FOR OBSERVATION/ASSESSMENT OF PAIN, EFFECTIVENESS OF PAIN MANAGEMENT INCLUDING MEDICATION REVIEW AND PHARMACOLOGICAL AND NONPHARMACOLOGICAL TREATMENTS AND SKILLED TEACHING RELATED TO PAIN MANAGEMENT. SKILLED NURSE TO INTERVENE WITH INCREASED PAIN LEVEL TO MINIMIZE COMPLICATIONS. [code = SKILLED NURSE FOR OBSERVATION/ASSESSMENT OF PAIN, EFFECTIVENESS OF PAIN MANAGEMENT INCLUDING MEDICATION REVIEW AND PHARMACOLOGICAL AND NONPHARMACOLOGICAL TREATMENTS AND SKILLED TEACHING RELATED TO PAIN MANAGEMENT. SKILLED NURSE TO INTERVENE WITH INCREASED PAIN LEVEL TO MINIMIZE COMPLICATIONS.] Future Scheduled Test SKILLED NU RSE TO PERFORM OBSERVATION / ASSESSMENT OF GENITOURINARY STATUS AND INTERVENE TO MINIMIZE COMPLICATIONS OF DISEASE PROCESS. SKILLED NURSE TO PROVIDE INSTRUCTION REGARDING MANAGEMENT OF DISEASE PROCESS INCLUDING PATHOPHYSIOLOGY, NUTRITIONAL/FLUID REQUIREMENTS, AND MEDICATION REGIMEN. [code = SKILLED NURSE TO PERFORM OBSERVATION / ASSESSMENT OF GENITOURINARY STATUS AND INTERVENE TO MINIMIZE COMPLICATIONS OF DISEASE PROCESS. SKILLED NURSE TO PROVIDE INSTRUCTION REGARDING MANAGEMENT OF DISEASE PROCESS INCLUDING PATHOPHYSIOLOGY, NUTRITIONAL/FLUID REQUIREMENTS, AND MEDICATION REGIMEN.] Future Scheduled Test SKILLED NU RSE TO INSTRUCT PATIENT / CAREGIVER IN INDWELLING URINARY CATHETER MANAGEMENT INCLUDING CARE OF LOAIZA CATHETER, SIGN AND SYMPTOMS OF COMPLICATIONS, PERINEAL CARE, TUBE AND BAG PLACEMENT. [code = SKILLED NURSE TO INSTRUCT PATIENT / CAREGIVER IN INDWELLING URINARY CATHETER MANAGEMENT INCLUDING CARE OF LOAIZA CATHETER, SIGN AND SYMPTOMS OF COMPLICATIONS, PERINEAL CARE, TUBE AND BAG PLACEMENT.] Future Scheduled Test SKILLED NU RSE FOR INSERTION OF FOLEYCATHETER USING 14 FR(SIZE)/10 (BALLOON ML). CHANGE EVERY 4 WEEKS AND PRN DISLODGEMENT OR STOPPAGE. [code = SKILLED NURSE FOR INSERTION OF FOLEYCATHETER USING 14 FR(SIZE)/10 (BALLOON ML). CHANGE EVERY 4 WEEKS AND PRN DISLODGEMENT OR STOPPAGE.] Future Scheduled Test SKILLED NU RSE TO OBSERVE AND ASSESS INTEGUMENTARY STATUS TO IDENTIFY CHANGES AND INTERVENE TO MINIMIZE COMPLICATIONS. CLINICIAN TO PROVIDE SKILLED TEACHING RELATED TO ALTERED SKIN INTEGRITY INCLUDING PATHOPHYSIOLOGY, NUTRITION, MEDICATION REGIMEN, AND MEASURES TO PROMOTE OPTIMAL SKIN INTEGRITY. [code = SKILLED NURSE TO OBSERVE AND ASSESS INTEGUMENTARY STATUS TO IDENTIFY CHANGES AND INTERVENE TO MINIMIZE COMPLICATIONS. CLINICIAN TO PROVIDE SKILLED TEACHING RELATED TO ALTERED SKIN INTEGRITY INCLUDING PATHOPHYSIOLOGY, NUTRITION, MEDICATION REGIMEN, AND MEASURES TO PROMOTE OPTIMAL SKIN INTEGRITY.] Future Scheduled Test SKILLED NU RSE TO PERFORM/TEACH WOUND CARE TO NON HEALING SURGICAL WOUND LT FOOT CLEANSE WITH SALINE OR WOUND CLEANSER APPLY UNNA BOOT WEEKLY ON MONDAYS COVER/SECURE WITH KERLE AND COBAN OR DEBBY WRAP . ON WEDNESDAY COVER OPEN AREAS WITH GAUZE, WRAP WITH KERLEX AND COBAN OR DEBBY WRAP WOUND CARE TO BE PERFORMED 2XWK [code = SKILLED NURSE TO PERFORM/TEACH WOUND CARE TO NON HEALING SURGICAL WOUND LT FOOT CLEANSE WITH SALINE OR WOUND CLEANSER APPLY UNNA BOOT WEEKLY ON MONDAYS COVER/SECURE WITH KERLE AND COBAN OR DEBBY WRAP . ON WEDNESDAY COVER OPEN AREAS WITH GAUZE, WRAP WITH KERLEX AND COBAN OR DEBBY WRAP WOUND CARE TO BE PERFORMED 2XWK] Future Scheduled Test SKILLED NU RSE PRN VISIT ORDER: 3 PRN VISITS MAY BE PERFORMED DURING THIS CERTIFICATION PERIOD FOR THE FOLLOWING REASON(S): WOUND CARE, NEW SKIN BREAKDOWN. SKILLED NURSE TO EVALUATE AND DEVELOP PLAN OF CARE TO BE SIGNED BY THE PHYSICIAN. SKILLED NURSE TO ASSESS/EVALUATE ANY CONDITIONS THAT PRESENT THEMSELVES AND THAT WILL IMPACT THE PLAN OF CARE DURING THE COURSE OF THE EPISODE TO IDENTIFY CHANGES AND INTERVENE TO MINIMIZE COMPLICATIONS. TEACH AND MONITOR PATIENT/CAREGIVER ABILITY TO SAFELY ADMINISTER MEDICATIONS. PHONE TOUCHPOINTS CAN BE PERFORMED NEEDED TO SUPPLEMENT THE PLAN OF CARE. [code = SKILLED NURSE PRN VISIT ORDER: 3 PRN VISITS MAY BE PERFORMED DURING THIS CERTIFICATION PERIOD FOR THE FOLLOWING REASON(S): WOUND CARE, NEW SKIN BREAKDOWN. SKILLED NURSE TO EVALUATE AND DEVELOP PLAN OF CARE TO BE SIGNED BY THE PHYSICIAN. SKILLED NURSE TO ASSESS/EVALUATE ANY CONDITIONS THAT PRESENT THEMSELVES AND THAT WILL IMPACT THE PLAN OF CARE DURING THE COURSE OF THE EPISODE TO IDENTIFY CHANGES AND INTERVENE TO MINIMIZE COMPLICATIONS. TEACH AND MONITOR PATIENT/CAREGIVER ABILITY TO SAFELY ADMINISTER MEDICATIONS. PHONE TOUCHPOINTS CAN BE PERFORMED NEEDED TO SUPPLEMENT THE PLAN OF CARE.] Future Scheduled Test SKILLED NU RSE TO OBSERVE AND ASSESS CARDIOVASCULAR SYSTEM TO IDENTIFY CHANGES AND INTERVENE TO MINIMIZE COMPLICATIONS AND PROMOTE SELF CARE MANAGEMENT. SKILLED NURSE TO PROVIDE SKILLED TEACHING RELATED TO PATHOPHYSIOLOGY, DISEASE MANAGEMENT, SAFE MEDICATION ADMINISTRATION, WEIGHT/EDEMA MANAGEMENT, PERMITTED ACTIVITIES, S/SX OF EXACERBATION, AND S/SX TO NOTIFY AGENCY, PHYSICIAN OR 911 RELATED TO THE DIAGNOSIS OF CHF [code = SKILLED NURSE TO OBSERVE AND ASSESS CARDIOVASCULAR SYSTEM TO IDENTIFY CHANGES AND INTERVENE TO MINIMIZE COMPLICATIONS AND PROMOTE SELF CARE MANAGEMENT. SKILLED NURSE TO PROVIDE SKILLED TEACHING RELATED TO PATHOPHYSIOLOGY, DISEASE MANAGEMENT, SAFE MEDICATION ADMINISTRATION, WEIGHT/EDEMA MANAGEMENT, PERMITTED ACTIVITIES, S/SX OF EXACERBATION, AND S/SX TO NOTIFY AGENCY, PHYSICIAN OR 911 RELATED TO THE DIAGNOSIS OF CHF] Future Scheduled Test PATIENT/CA REGIVER WILL BE KNOWLEDGEABLE OF DISCHARGE PLANS AND WILL DEMONSTRATE/PROVIDE EDUCATION AND RESOURCES NEEDED TO MAINTAIN HEALTH. [code = PATIENT/CAREGIVER WILL BE KNOWLEDGEABLE OF DISCHARGE PLANS AND WILL DEMONSTRATE/PROVIDE EDUCATION AND RESOURCES NEEDED TO MAINTAIN HEALTH.] Future Scheduled Test AGENCY AGNES L DISCHARGE PATIENT TO [facility] PHYSICIAN/HEALTH CARE PROVIDER AND MAY ACCEPT ORDERS FROM THE FOLLOWING PHYSICIANS: JAKE CEVALLOS [code = AGENCY WILL DISCHARGE PATIENT TO [facility] PHYSICIAN/HEALTH CARE PROVIDER AND MAY ACCEPT ORDERS FROM THE FOLLOWING PHYSICIANS: JAKE CEVALLOS] Future Scheduled Test CLINICIAN TO EDUCATE PATIENT / CAREGIVER IN FALL PREVENTION AND PROVIDE INTERVENTIONS TO REDUCE FALL RISK AND ENHANCE HOME SAFETY [code = CLINICIAN TO EDUCATE PATIENT / CAREGIVER IN FALL PREVENTION AND PROVIDE INTERVENTIONS TO REDUCE FALL RISK AND ENHANCE HOME SAFETY] Future Scheduled Test PSYCHOSOCI AL / COGNITIVE ASSESSMENT INDICATES NO NEED FOR SOCIAL, FINANCIAL, OR TRANSPORTATION SUPPORT OR FOR ADDITIONAL CARE PROVIDERS/DISCIPLINES OR REFERRALS TO OUTSIDE ENTITIES. [code = PSYCHOSOCIAL / COGNITIVE ASSESSMENT INDICATES NO NEED FOR SOCIAL, FINANCIAL, OR TRANSPORTATION SUPPORT OR FOR ADDITIONAL CARE PROVIDERS/DISCIPLINES OR REFERRALS TO OUTSIDE ENTITIES.] Future Scheduled Test PSYCHOSOCI AL / COGNITIVE ASSESSMENT INDICATES THE FOLLOWING NEEDS: (SOCIAL, FINANCIAL, TRANSPORTATION, ADDITIONAL CARE PROVIDERS/ DISCIPLINES, REFERRALS TO OUTSIDE ENTITIES, ETC.). AGENCY WILL DISCHARGE PATIENT TO PHYSICIAN/HEALTH CARE PROVIDER. MAY ACCEPT ORDERS FROM THE FOLLOWING PHYSICIAN(S): OT REMOTE VIDEO VISIT(S) TO ASSESS, EVALUATE AND PROVIDE EDUCATION/TRAINING FOR HOME SAFETY, ADLS, IADLS, SAFE MEDICATION ADMINISTRATION, DISEASE MANAGEMENT, AND SIGNS/SYMPTOMS TO REPORT TO AGENCY, PHYSICIAN, OR 911. OCCUPATIONAL THERAPIST TO EVALUATE PATIENT FOR OT SERVICES AND DEVELOP PLAN OF CARE TO BE SIGNED BY THE PHYSICIAN. TEACH AND MONITOR PATIENT/CAREGIVER ABILITY TO SAFELY ADMINISTER MEDICATIONS. PHONE TOUCHPOINTS CAN BE PERFORMED NEEDED TO SUPPLEMENT THE PLAN OF CARE. OCCUPATIONAL THERAPY TO ESTABLISH/UPGRADE HOME EXERCISE PROGRAM AND PROVIDE THERAPEUTIC EXERCISES AND/OR SOFT TISSUE/JOINT MOBILIZATION DESIGNED TO RESTORE FUNCTIONAL STRENGTH AND ROM. OCCUPATIONAL THERAPY TO INSTRUCT IN SAFE TRANSFERS USING APPROPRIATE BODY MECHANICS AND EQUIPMENT. CLINICIAN TO EDUCATE PATIENT / CAREGIVER IN FALL PREVENTION AND PROVIDE INTERVENTIONS TO REDUCE FALL RISK AND ENHANCE HOME SAFETY OCCUPATIONAL THERAPIST TO PROVIDE PATIENT / CAREGIVER WITH ADL TRAINING TO INCREASE INDEPENDENCE. OCCUPATIONAL THERAPY TO PROVIDE INSTRUCTION IN ENERGY CONSERVATION TECHNIQUES DESIGNED TO MAXIMIZE PATIENT'S TOLERANCE DURING ADL'S/IADL'S. PATIENT/CAREGIVER WILL BE KNOWLEDGEABLE OF DISCHARGE PLANS AND WILL DEMONSTRATE/PROVIDE EDUCATION AND RESOURCES NEEDED TO MAINTAIN HEALTH. [code = PSYCHOSOCIAL / COGNITIVE ASSESSMENT INDICATES THE FOLLOWING NEEDS: (SOCIAL, FINANCIAL, TRANSPORTATION, ADDITIONAL CARE PROVIDERS/ DISCIPLINES, REFERRALS TO OUTSIDE ENTITIES, ETC.). AGENCY WILL DISCHARGE PATIENT TO PHYSICIAN/HEALTH CARE PROVIDER. MAY ACCEPT ORDERS FROM THE FOLLOWING PHYSICIAN(S): OT REMOTE VIDEO VISIT(S) TO ASSESS, EVALUATE AND PROVIDE EDUCATION/TRAINING FOR HOME SAFETY, ADLS, IADLS, SAFE MEDICATION ADMINISTRATION, DISEASE MANAGEMENT, AND SIGNS/SYMPTOMS TO REPORT TO AGENCY, PHYSICIAN, OR 911. OCCUPATIONAL THERAPIST TO EVALUATE PATIENT FOR OT SERVICES AND DEVELOP PLAN OF CARE TO BE SIGNED BY THE PHYSICIAN. TEACH AND MONITOR PATIENT/CAREGIVER ABILITY TO SAFELY ADMINISTER MEDICATIONS. PHONE TOUCHPOINTS CAN BE PERFORMED NEEDED TO SUPPLEMENT THE PLAN OF CARE. OCCUPATIONAL THERAPY TO ESTABLISH/UPGRADE HOME EXERCISE PROGRAM AND PROVIDE THERAPEUTIC EXERCISES AND/OR SOFT TISSUE/JOINT MOBILIZATION DESIGNED TO RESTORE FUNCTIONAL STRENGTH AND ROM. OCCUPATIONAL THERAPY TO INSTRUCT IN SAFE TRANSFERS USING APPROPRIATE BODY MECHANICS AND EQUIPMENT. CLINICIAN TO EDUCATE PATIENT / CAREGIVER IN FALL PREVENTION AND PROVIDE INTERVENTIONS TO REDUCE FALL RISK AND ENHANCE HOME SAFETY OCCUPATIONAL THERAPIST TO PROVIDE PATIENT / CAREGIVER WITH ADL TRAINING TO INCREASE INDEPENDENCE. OCCUPATIONAL THERAPY TO PROVIDE INSTRUCTION IN ENERGY CONSERVATION TECHNIQUES DESIGNED TO MAXIMIZE PATIENT'S TOLERANCE DURING ADL'S/IADL'S. PATIENT/CAREGIVER WILL BE KNOWLEDGEABLE OF DISCHARGE PLANS AND WILL DEMONSTRATE/PROVIDE EDUCATION AND RESOURCES NEEDED TO MAINTAIN HEALTH.] Future Scheduled Test PHYSICAL T HERAPIST TO EVALUATE/ASSESS AND DEVELOP PHYSICAL THERAPY PLAN OF CARE TO BE SIGNED BY THE PHYSICIAN. TEACH AND MONITOR PATIENT/CAREGIVER ABILITY TO SAFELY ADMINISTER MEDICATIONS. PHONE TOUCHPOINTS CAN BE PERFORMED NEEDED TO SUPPLEMENT THE PLAN OF CARE. PHYSICAL THERAPY TO PROVIDE TECHNIQUES DESIGNED TO IMPROVE BED MOBILITY. PHYSICAL THERAPY TO INSTRUCT IN SAFE TRANSFERS WITH APPROPRIATE BODY MECHANICS AND EQUIPMENT. CLINICIAN TO EDUCATE PATIENT / CAREGIVER IN FALL PREVENTION AND PROVIDE INTERVENTIONS TO REDUCE FALL RISK AND ENHANCE HOME SAFETY PHYSICAL THERAPY TO PROVIDE BALANCE TRAINING TO REDUCE FALL RISK DURING FUNCTIONAL ACTIVITIES. PHYSICAL THERAPY TO PROVIDE TRAINING ON SAFE AND EFFECTIVE USE OF WHEELCHAIR. PATIENT/CAREGIVER WILL BE KNOWLEDGEABLE OF DISCHARGE PLANS AND WILL DEMONSTRATE/PROVIDE EDUCATION AND RESOURCES NEEDED TO MAINTAIN HEALTH. [code = PHYSICAL THERAPIST TO EVALUATE/ASSESS AND DEVELOP PHYSICAL THERAPY PLAN OF CARE TO BE SIGNED BY THE PHYSICIAN. TEACH AND MONITOR PATIENT/CAREGIVER ABILITY TO SAFELY ADMINISTER MEDICATIONS. PHONE TOUCHPOINTS CAN BE PERFORMED NEEDED TO SUPPLEMENT THE PLAN OF CARE. PHYSICAL THERAPY TO PROVIDE TECHNIQUES DESIGNED TO IMPROVE BED MOBILITY. PHYSICAL THERAPY TO INSTRUCT IN SAFE TRANSFERS WITH APPROPRIATE BODY MECHANICS AND EQUIPMENT. CLINICIAN TO EDUCATE PATIENT / CAREGIVER IN FALL PREVENTION AND PROVIDE INTERVENTIONS TO REDUCE FALL RISK AND ENHANCE HOME SAFETY PHYSICAL THERAPY TO PROVIDE BALANCE TRAINING TO REDUCE FALL RISK DURING FUNCTIONAL ACTIVITIES. PHYSICAL THERAPY TO PROVIDE TRAINING ON SAFE AND EFFECTIVE USE OF WHEELCHAIR. PATIENT/CAREGIVER WILL BE KNOWLEDGEABLE OF DISCHARGE PLANS AND WILL DEMONSTRATE/PROVIDE EDUCATION AND RESOURCES NEEDED TO MAINTAIN HEALTH.] Progress Notes * <paragraph>[Visit Date: 2025-03-15 by KASHIF PEREZ RN]:</paragraph><paragraph>SUPERVISORY NURSING VISIT FOR ASSESSMENT, WOUND CARE TO THE LEFT FOOT, INDWELLING CATHETER CHANGE ANDOBTAIN URINALYSIS WITH CULTURE WAS GREETED INTO THE HOME BY THE PATIENT SITTING ON THE EDGE OF HIS HOSPITAL BED AT TIME OF NURSES ARRIVAL, HAS MOTORIZED WHEELCHAIR WITHIN REACH. PAID HELPER IN THE HOME AT TIME OF ASSESSMENT. ALERT AND ORIENTED TIMES FOUR, NO SIGNS OF DISTRUST NOTED HOWEVER HAS CHRONIC COMPLAINTS OF LEFT LOWER EXTREMITY DISCOMFORT AND LOW BACK DISCOMFORT. REVIEWED MEDICATION PROFILE, PATIENT HAS NOT STARTED ANY NEW MEDICATIONS SINCE LAST ASSESSMENT HOWEVER HE STATES THAT HIS PROVIDER CAME AND SEEN HIM AT HIS HOME YESTERDAY AND HAS SENT HIM SOME LEVAQUIN INTO HIS PHARMACY TO START TAKING AFTER THE URINALYSIS IS OBTAINED. NO FALLS AND NO EMERGENCY ROOM VISITS REPORTED. CONTINUES WITH DEXCOM FOR GLUCOSE MONITORING CONTINUOUSLY, WAS 199 AT TODAY'S ASSESSMENT FASTING. VSS, LUNGS CTA AND HEART REGULAR RATE AND RHYTHM. INDWELLING CATHETER CHANGED AT TODAY'S ASSESSMENT, NURSE REMOVED THE OLD CATHETER AND UTILIZING STERILE TECHNIQUE PLACED A NEW 12 CZECH 10CC URINARY CATHETER,RETURNED 200 ML OF CLOUDY YELLOW URINE. NURSE OBTAINED URINALYSIS WITH CULTURE. CATHETER SECURED DRESSING REMOVED TO THE LEFT LOWER EXTREMITY AND CLEANSED WOUND ORDERED. MEASUREMENTS OBTAINED. REDUCTION IN MEASUREMENTS SINCE LAST MEASUREMENTS. CONTINUES WITH SMALL AMOUNT OF SEROSANGEOUS DRAINAGE. NO ODORS AND NO VISUAL SIGNS OF INFECTION PRESENT. WOUND CARE PROVIDED ORDERED AND PATIENT TOLERATED WELL WITHOUT COMPLAINTS. INSTRUCTED PATIENT TO NOTIFY [facility] FOR ANY QUESTIONS OR CONCERNS AND TO SEEK EMERGENCY MEDICAL TREATMENT FOR EMERGENCY SITUATIONS. PATIENT STATES UNDERSTANDING</paragraph> * <paragraph>[Visit Date: 2025-03-14 by LE BECERRA PT]:</paragraph><paragraph>PATIENT SEATED ON BED UPON ARRIVAL, AGREEABLE TO THERAPY. NO PAIN, NO FALLS, NO MEDICATION CHANGES. HEIS NOT FEELING WELL, URINE IS DARK. PCP IS DOING A HOME VISIT TODAY. PATIENT STATES LLE UNNA BOOT IS VERY PAINFUL. HE REQUESTED REMOVE AND REPLACE WITH DEBBY WRAP. HE IS OUT OF DEBBY WRAP, LEFT CURRENT DRESSING AND NSG IS COMING TOGETHER. PATIENT REQUIRES PARTIAL ASSISTANCE FOR TRANSFERRING TO WHEELCHAIR. WOULD BENEFIT FROM FLIP BACK ARMREST PATIENT IS UNABLE TO NEGOTIATE PULL OFF ARM REST INDEPENDENTLY DUE TO FINE MOTOR SKILLS. REP WITH [employer] IS AWARE. CONTINUES TO DEMONSTRATE DEFICITS AND ENDURANCE, BALANCE, STRENGTH. RECOMMEND CONTINUED SKILLED PHYSICAL THERAPY TO ADDRESS DEFICITS AND PROMOTE FUNCTIONAL INDEPENDENT. PATIENT IS HOMEBOUND DUE TO BEING CHAIR AND BED BOUND REQUIRING SPECIALTY TRANSPORTATION TO ENTER AND EXIT THE HOME..</paragraph> * <paragraph>[Visit Date: 2025-03-13 by YUMI BALDERAS OT]:</paragraph><paragraph>PATIENT AGREEABLE TO OT VISIT. PATIENT PROGRESSING WITH GOALS. PATIENT REPORTED HE STILL IS NOT FEELINGGREAT DUE TO POSSIBLE UTI. URINE STILL CLOUDY, NURSING MONITORING. PATIENT CONTINUES TO REQUIRE EDUCATION ON SAFETY, WS/EC TECHNIQUES, ADLS, AND HEP TO CONTINUE MAKING PROGRESS AND INCREASE QUALITY OF LIFE. TAXING EFFORT AND REQUIRES ASSISTANCE TO LEAVE HOME.</paragraph> * <paragraph>[Visit Date: 2025-03-12 by KASHIF PEREZ RN]:</paragraph><paragraph>ROUTINE NURSING VISIT FOR ASSESSMENT, WOUND CARE TO THE LEFT FOOT AND EDUCATION PATIENT SITTING ON THE EDGE OF HIS HOSPITAL BED AT TIME OF NURSES ARRIVAL, HAS MOTORIZED WHEELCHAIR WITHIN REACH. ALERT AND ORIENTED TIMES FOUR, NO SIGNS OF DISTRESS NOTED HOWEVER HAS COMPLAINTS OF CHRONIC NEUROPATHY PAINTO THE LEFT LOWER EXTREMITY. REVIEWED MEDICATION PROFILE, NO CHANGES NOTED AT THIS TIME. NO FALLS AND NO EMERGENCY ROOM VISITS SINCE THE LAST NURSING ASSESSMENT. CURRENTLY HAS A DEXCOM IN PLACE TO THE LEFT ARM HOWEVER PATIENT IS DUE FOR A NEW SENSOR. NEW SENSOR PLACED TO THE RIGHT ARM AT TODAY'S ASSESSMENT AND REMOVE THE OLD ONE FROM THE LEFT ARM AND DISPOSED APPROPRIATELY. NO GLUCOSE READING AT THIS TIME. VSS, LUNGS CTA AND HEART REGULAR RATE AND RHYTHM. DRESSING REMOVED TO THE LEFT LOWER EXTREMITY AND CLEANSED WOUND ORDERED. MEASUREMENTS OBTAINED. NO SIGNIFICANT CHANGES IN WOUND STATUS. WOUND CARE PROVIDED ORDERED AND PATIENT TOLERATED WELL WITHOUT COMPLAINTS. INSTRUCTED PATIENT TO NOTIFY [facility] FOR ANY QUESTIONS OR CONCERNS AND TO SEEK EMERGENCY MEDICAL TREATMENT FOR EMERGENCY SITUATIONS. PATIENT STATES UNDERSTANDING</paragraph> * <paragraph>[Visit Date: 2025-03-09 by LE BECERRA PT]:</paragraph><paragraph>PATIENT SEATED ON BED UPON ARRIVAL, AGREEABLE TO THERAPY. NO PAIN, NO FALLS, NO MEDICATION CHANGES. PATIENT REQUIRES PARTIAL ASSISTANCE FOR TRANSFERRING TO WHEELCHAIR TODAY. WOULD BENEFIT FROM FLIP BACK ARMREST PATIENT IS UNABLE TO NEGOTIATE PULL OFF ARM REST INDEPENDENTLY DUE TO FINE MOTOR SKILLS.REP WITH [employer] IS AWARE. WHEELCHAIR SKILLS WITH 20% VERBAL CUES FOR NEGOTIATING OBSTACLES AND RAMPS. CONTINUES TO MAKE PROGRESS WITH SAFETY. CONTINUES TO DEMONSTRATE DEFICITS AND ENDURANCE, BALANCE, STRENGTH. RECOMMEND CONTINUED SKILLED PHYSICAL THERAPY TO ADDRESS DEFICITS AND PROMOTE FUNCTIONALINDEPENDENT. PATIENT IS HOMEBOUND DUE TO BEING CHAIR AND BED BOUND REQUIRING SPECIALTY TRANSPORTATION TO ENTER AND EXIT THE HOME..</paragraph> * <paragraph>[Visit Date: 2025-03-09 by KASHIF PEREZ RN]:</paragraph><paragraph>ROUTINE NURSING VISIT FOR ASSESSMENT, WOUND CARE TO THE LEFT FOOT AND EDUCATION PATIENT WAS SITTING ON THE SIDE OF HIS HOSPITAL BED AT TIME OF NURSES ARRIVAL WITH A NEIGHBOR VISITING. HAS MOTORIZED WHEELCHAIR WITHIN REACH. ALERT AND ORIENTED TIMES FOUR, NO SIGNS OF DISTRESS NOTED HOWEVER CONTINUES WITH COMPLAINTS OF CHRONIC PAIN TO THE LEFT LOWER EXTREMITY. REVIEWED MEDICATION PROFILE, PATIENT STATES HE HAD NOTIFIED HIS DOCTOR DUE TO HIS GLUCOSE LEVELS RUNNING MORE ELEVATED, HE STATES THAT THE INCREASED BASEGLAR FROM 42 UNITS AT BEDTIME TO 50, PATIENT GLUCOSE LEVEL FASTING AT TODAY'S ASSESSMENTWAS 191. VSS, LUNGS CTA AND HEART REGULAR RATE AND RHYTHM DRESSING REMOVED TO THE LEFT LOWER EXTREMITY AND CLEANSED WOUND ORDERED. MEASUREMENTS OBTAINED. NO SIGNIFICANT CHANGES IN WOUND STATUS SINCE LAST ASSESSMENT. WOUND CARE PROVIDED ORDERED AND PATIENT TOLERATED WELL WITHOUT COMPLAINTS. EDUCATION PROVIDED ON APPROPRIATE WOUND CARE TECHNIQUE, ALSO EDUCATED TO OFFLOAD PRESSURE TO THE BUTTOCKS OFTEN PATIENT DOES HAVE REDNESS TO HIS BUTTOCKS. EDUCATION PROVIDED ON APPROPRIATE CARE TECHNIQUE OF THE BACKSIDE. PATIENT AND NEIGHBOR VERBALIZED UNDERSTANDING. NEIGHBOR ASSIST IN PATIENT CAREIN ABSENCE OF NURSING. INSTRUCTED PATIENT TO NOTIFY [facility] FOR ANY QUESTIONS OR CONCERNS AND TO SEEK EMERGENCY MEDICAL TREATMENT FOR EMERGENCY SITUATIONS. PATIENT STATES UNDERSTANDING</paragraph> Encounters Start Date/Time End Date/Time Encounter Type Admission Type Attending [facility] Care [facility] Care Department Encounter ID 2025-01-23 00:00:00 2025-03-23 00:00:00 Unknown RECERTIFICATIYUMI YAO, LE BABB [facility] [id number]
--- OUTSIDE RECORDS SUMMARY | 2025-03-22 20:00 | XMS_ITS | Clinical Summary ---
Author Organization [facility] Address [address] [place] [phone] Phone Care Team Providers Care Airplane Gastank Liner Assembler Name Role Phone TYSON MURILLO, YUMIKO Unavailable [...] 00 GASTROPARESI S Active 09-20 00:00: 00 REHABILITATION NURSE (CURRENT) USE OF INSULIN Active 09-25 00:00: [...] 09-25 00:00: 00 ATHSCL HEART DISEASE OF [place] CORONARY ARTERY W/O ANG PCTRS Active 09-25 [...] OF URINARY DEVICE Active 09-25 00:00: 00 REHABILITATION NURSE (CURRENT) USE OF ASPIRIN Active 09-25 00:00: 00 REHABILITATION NURSE (CURRENT) USE OF 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 ICS/ANTIPLAT ELETS Active [...] mg chewable tablet 09-25 00:00: 00 Yes [id number] HEART DISEASE 1 tablet DAILY 1 tablet DAILY (route: oral) Med Classific ation: Hematolog ical Agents baclofen 10 mg tablet 09-25 00:00: 00 Yes [id number] MUSCLE SPASMS 1 tablet 2 TIMES DAILY 1 tablet 2 TIMES DAILY (route: oral) Med Classific ation: Locomotor System Basaglar KwikPen U-100 Insulin 100 unit/mL (3 mL) subcutaneou s 09-25 00:00: 00 Yes [id number] DIABETIC 42 unit BEDTIME 42 unit BEDTIME (route: subcutaneo ) Med Classific ation: Endocrine Cherelle Back and Body 500 mg-32.5 mg tablet 09-25 00:00: 00 Yes [id number] PAIN 1 tablet NEEDED 1 tablet NEEDED (route: oral) Med Classific ation: Analgesic , Anti-infl ammatory or Antipyret ic carvedilol 3.125 mg tablet 09-25 00:00: 00 Yes [id number] HEART RATE 1 tablet 2 TIMES DAILY 1 tablet 2 TIMES DAILY (route: oral) Med Classific ation: Cardiovas cular Therapy Agents clopidogrel 75 mg tablet 09-25 00:00: 00 Yes [id number] BLOOD THINNER 1 tablet DAILY 1 tablet DAILY (route: oral) Med Classific ation: Hematolog ical Agents folic acid 1 mg tablet 09-25 00:00: 00 Yes [id number] SUPPLEMENT 1 tablet DAILY 1 tablet DAILY (route: oral) Med Classific ation: Electroly te Balance-N utritiona l Products furosemide 40 mg tablet 09-25 00:00: 00 Yes [id number] FLUID 1 tablet DAILY 1 tablet DAILY (route: oral) Med Classific ation: Cardiovas cular Therapy Agents gabapentin 100 mg capsule 09-25 00:00: 00 Yes [id number] NERVE PAIN 2 capsule 3 TIMES DAILY 2 capsule 3 TIMES DAILY (route: oral) Med Classific ation: Central Nervous System Agents lamotrigine 100 mg tablet 09-25 00:00: 00 Yes [id number] SEIZURES 1 tablet 2 TIMES DAILY 1 tablet 2 TIMES DAILY (route: oral) Med Classific ation: Central Nervous System Agents lamotrigine 150 mg tablet 09-25 00:00: 00 Yes [id number] SEIZURES 1 tablet BEDTIME 1 tablet BEDTIME (route: oral) Med Classific ation: Central Nervous System Agents levofloxaci n 750 mg tablet 09-25 00:00: 00 11-10 23:59 :00 No [id number] INFECTION 1 tablet DAILY 1 tablet DAILY (route: oral) Med Classific ation: Anti-Infe ctive Agents multivitami n tablet 09-25 00:00: 00 Yes [id number] SUPPLEMENT 1 tablet DAILY 1 tablet DAILY (route: oral) Med Classific ation: Electroly te Balance-N utritiona l Products ondansetron 4 mg disintegrat ing tablet 09-25 00:00: 00 Yes [id number] NAUSEA 1 tablet NEEDED 1 tablet NEEDED (route: oral) Med Classific ation: Gastroint estinal Therapy Agents Pacerone 400 mg tablet 09-25 00:00: 00 Yes [id number] HEART RATE 1 tablet 2 TIMES DAILY 1 tablet 2 TIMES DAILY (route: oral) Med Classific ation: Cardiovas cular Therapy Agents pantoprazol e 40 mg tablet,jossie yed release 09-25 00:00: 00 Yes [id number] ACID REFLUX 1 tablet DAILY 1 tablet DAILY (route: oral) Med Classific ation: Gastroint estinal Therapy Agents amoxicillin 875 mg-potassiu m clavulanate 125 mg tablet 01-31 00:00: 00 02-07 23:59 :00 No [id number] UTI 1 tablet EVERY AM 1 tablet EVERY AM (route: oral) Med Classific ation: Anti-Infe ctive Agents levofloxaci n 500 mg tablet 2025-0 6-14 00:00: 00 03-10 23:59 :00 No [id number] DYSURIA 1 tablet DAILY 1 tablet DAILY [...] AGENCY AGNES L DISCHARGE PATIENT TO [facility] PHYSICIAN/HEALTH CARE PROVIDER AND MAY ACCEPT ORDERS FROM THE FOLLOWING PHYSICIANS: JAKE CEVALLOS [code = AGENCY WILL DISCHARGE PATIENT TO [facility] PHYSICIAN/HEALTH CARE PROVIDER AND MAY ACCEPT ORDERS [...] UTILIZING STERILE TECHNIQUE PLACED A NEW 12 [place] 10CC URINARY CATHETER,RETURNED 200 ML OF CLOUDY [...] WELL WITHOUT COMPLAINTS. INSTRUCTED PATIENT TO NOTIFY [facility] FOR ANY QUESTIONS OR CONCERNS AND [...] WELL WITHOUT COMPLAINTS. INSTRUCTED PATIENT TO NOTIFY [facility] FOR ANY QUESTIONS OR CONCERNS AND TO [...] ABSENCE OF NURSING. INSTRUCTED PATIENT TO NOTIFY [facility] FOR ANY QUESTIONS OR CONCERNS AND TO SEEK EMERGENCY MEDICAL TREATMENT FOR EMERGENCY SITUATIONS. PATIENT STATES UNDERSTANDING</paragraph> Encounters Start Date/Time End Date/Time Encounter Type Admission Type Attending [facility] Care Department Encounter ID 2025-01-23 00:00:00 2025-03-23 00:00:00 Unknown RECERTIFICATIYUMI YAO, LE BABB [facility] [id number]
== END 2025-03-15 23:59 | disposition home or self-care (01) ==
LOC: LAB.DROPOF 11:16
PROVIDERS: PCP Nurse Practitioner Family; Visit Provider Nurse Practitioner Family
DX: Z46.6 Encounter for fitting and adjustment of urinary device (principal); R33.9 Retention of urine, unspecified
CPT/HCPCS: 81001; 87086; 87088; 87186

== ENCOUNTER 2025-03-27 14:07 | Outpatient (CLI) | payer MEDICARE, SELFPAY ==
--- OUTSIDE RECORDS SUMMARY | 2025-03-27 14:10 | XMS_ITS | Encounter Summary ---
Author Organization [employer] ([place], [place], [place], [place]) Address [address] [place] [address] Care Team Providers Care Wheel Shop Supervisor Name Role Phone Unavailable Primary Care Provider Unavailabl e Encounter Details Date Type Department Care Team (Late st Contact Info) Description 12/24/2021 Transcribed Document [facility] [place] [facility] [place] [address] ProviderDario MD [address], [place] [id number] Social History Tobacco Use Types Packs/Day Years [...] Communication Barrier : None Primary Language : Azerbaijani Any Spiritual/Cultural Needs or Requests : No [...] (Comment: pt is a direct admit from [facility] due to new onset seizures, pt does [...]
--- OUTSIDE RECORDS SUMMARY | 2025-03-27 14:10 | XMS_ITS | Encounter Summary ---
Author Organization [employer] ([place], [place], [place], [place]) Address [address] [place] [address] Care Team Providers Care Bottle Capping Machine Operator Name Role Phone Unavailable Primary Care Provider Unavailabl e Encounter Details Date Type Department Care Team (Late st Contact Info) Description 12/24/2021 Transcribed Document [facility] [place] [facility] [address] [place] [address] ProviderDario MD [address], [place] [id number] Social History Tobacco Use Types Packs/Day Years [...] 15:16 EDT by Juani Torrez [facility] Event Note ED Event Date/Time : 12/24/2021 14:58 EDT ED Description of Event : Dr. South certified surgical assistant aware of the patient Juani Torrez [facility] - 12/24/2021 15:16 EDT documented in this encounter Plan of Treatment Not on file documented as of this encounter Visit Diagnoses Not on filedocumented in this encounter
--- OUTSIDE RECORDS SUMMARY | 2025-03-27 14:10 | XMS_ITS | Encounter Summary ---
Author Organization [employer] ([place], [place], [place], [place]) Address [address] [place] [address] Care Team Providers Care Hardwood Floor Sander Name Role Phone Unavailable Primary Care Provider Unavailabl e Encounter Details Date Type Department Care Team (Late st Contact Info) Description 12/24/2021 Transcribed Document [facility] [address] [place] [address] ProviderDario MD [address] [place], [place] [id number] Social History Tobacco Use Types Packs/Day Years [...]
--- OUTSIDE RECORDS SUMMARY | 2025-03-27 14:10 | XMS_ITS | Encounter Summary ---
Author Organization [employer] ([place], [place], [place], [place]) Address [address] [place] [address] Care Team Providers Care Bark Peeler Name Role Phone Unavailable Primary Care Provider Unavailabl e Encounter Details Date Type Department Care Team (Late st Contact Info) Description 12/31/2021 Transcribed Document [facility] [place] Medicine [address] [place] [address] ProviderDario MD [address] [place], [place] [id number] Social History Tobacco Use Types Packs/Day Years [...] Performed On: 12/31/2021 13:58 EDT by DIONNE SCAHFFER RN-UTILIZATION MANAGEMENT REVIEW NON-EXEMPT Primary Insurance Authorization Authorization and Policy Numbers : Insurance 1 Health Plan: [employer] Policy Number: [id number] Authorization Number: Insurance Primary Name : [employer] Policy Number: [id number] Authorization Status-Primary : Certified in total Reference Number-Primary : [id number] Authorization Number-Primary : [id number] Number of Days Authorized-Primary : 11 Day(s) Authorized Service Begin Date-Primary : 12/24/2021 EDT Authorized Service End Date-Primary : 01/04/2022 EDT Authorization Comments-Primary : c/s clinicals faxed via [facility] 12/27-12/31 Historical Authorization Comments-Primary : Comment 1: cont stay approved per fax from [facility] 12/26/21 NRD 01/05/22 (CARMEN TRENT, Professional Advisor 12/26/2021 12:07) Comment 2: c/s clinicals faxed via [employer], auth remains under review on [facility] portal (DIONNE SCHAFFER RN-UTILIZATION MANAGEMENT REVIEW NON-EXEMPT 12/26/2021 09:20) Comment 3: Clinicals submitted on [facility] website for IP approval (JODY MUÑOZ RN 12/25/2021 08:50) DIONNE SCHAFFER RN-UTILIZATION MANAGEMENT REVIEW NON-EXEMPT - 12/31/2021 13:58 EDT documented in this encounter Plan of Treatment Not on file documented as of this encounter Visit Diagnoses Not on filedocumented in this encounter
--- OUTSIDE RECORDS SUMMARY | 2025-03-27 14:10 | XMS_ITS | Encounter Summary ---
Author Organization [employer] ([place], [place], [place], [place]) Address [address] [place] [address] Care Team Providers Care Dedenter Name Role Phone Unavailable Primary Care Provider Unavailabl e Encounter Details Date Type Department Care Team (Late st Contact Info) Description 12/24/2021 Transcribed Document [facility] [place] [address] [place] [address] ProviderDario MD [address], [place] [id number] Social History Tobacco Use Types Packs/Day Years [...] Performed On: 12/24/2021 15:29 EDT [facility] Call for Consults Consult Reason : roselia has seen patient MERLYN OWENS [facility] - 12/26/2021 4:23 EDT documented in this encounter Plan of Treatment Not on file documented as of this encounter Visit Diagnoses Not on filedocumented in this encounter
--- OUTSIDE RECORDS SUMMARY | 2025-03-27 14:10 | XMS_ITS | Encounter Summary ---
Author Organization [employer] ([place], [place]) Address [address] [place] [address] Care Team Providers Care Roastmaster Name Role Phone Unavailable Primary Care Provider Unavailabl e Encounter Details Date Type Department Care Team (Late st Contact Info) Description 12/31/2021 Transcribed Document [facility] [place] Family Medicine [address] [place] [address] ProviderDario MD [address] [place], [place] [id number] Social History Tobacco Use Types Packs/Day Years Used Date Smoking Tobacco: Never Assessed Sex and Gender Information Value Date Recorded Sex Assigned at Not on file Legal Sex Male 5:38 PM CDT Gender Identity Not on file Sexual Orientation Not on file documented as of this encounter Miscellaneous Notes * Cerner Conversion Note - Historical ProviderMD - 12/31/2021 2:00 AM CDT Pile Driver Operator Details Entered On: 12/31/2021 2:31 EDT Performed [...]
--- OUTSIDE RECORDS SUMMARY | 2025-03-27 14:10 | XMS_ITS | Encounter Summary ---
Author Organization Healthcare Address [address] [place] [address] Care Team Providers Care Line Manager Name Role Phone John Paul Orellana MD Primary Care Provider [phone] Encounter Details Date Type Department Care Team (Late st Contact Info) Description 08/04/2023 Community Orders Community Practice [address] [place] [address] Shree Anand MD [address] [facility] [address] [place] [address] Parkinsonian features (Primary Dx) Social [...] drink first t clarita in the morning (EYE-DRAG OUT WORKER) to steady your nerves or to get [...] documented as of this encounter Care Teams Line Manager Relationship Specialty Start Date End Date John Paul Orellana MD [address] [place] [address] PCP - General 01/24/21 documented as of this encounter
--- OUTSIDE RECORDS SUMMARY | 2025-03-27 14:11 | XMS_ITS | Encounter Summary ---
Author Organization [employer] ([place], [place], [place], [place]) Address [address] [place] [address] Care Team Providers Care Plant Utilities Engineer Name Role Phone Unavailable Primary Care Provider Unavailabl e Encounter Details Date Type Department Care Team (Late st Contact Info) Description 12/28/2021 Transcribed Document [facility] Radiology [address] [place] [address] Anali South MD [address] [facility] [address] [place] [address] Social History Tobacco Use Types [...] [facility] from [facility] secondary recurrent seizure activity. He is known to our practice from [facility]. Pt has hx of seizures, DM II, HTN, HLD, functional quadraplegia. It appears that pt had increased seizure activity in 10/2021 when at [facility] (or may have led to him going there). Keppra was added to lamictal at that time, then was hospitalized again at [facility] and dilantin was added to regimen. Despite med changes pt has continued to have seizures. It appears dilantin was low and provider had plans to start titration at [facility]. Pt had seizure for [address] [facility] yesterday and was still having seizure when transported by EMS. O2 sat was starting to drop. Previously he had had a seizure over 10 min. Do to recurrent seizures he was transferred here to [facility] for further work up. No records from [facility] ER were seen on pts chart. Pt says he has felt feverish. No cp, soa. Has had occ cough. Concerned about sacral/buttock wound. States that previously at [facility] it was almost healed now it is bad again. C/o pain around right parotid gland. States it was found at [facility]. States they have been swabbing his mouth with lemon juice, that helped at first but now swollen. Pt has dentures but not with him. At [facility] he was started on azithromycin and prednisone for parotid swelling. Prior hospitalizations: 11/2721-12/18/21 - [facility] - pt was unrepsonsive at [facility] and went to ER. Dc summary said seizures and DKA?. He was intubated for protection. Extubated on 12/08. He had some intermittent seizures during his stay. Dilantin was added. Seizures were stopped with Ativan. Lamictal dose was increased. EEG showed no seizure activity per D/c summary and pt returned to [facility]. He was found to have parotid [...] also of 50 mg q8h. 08/2021 - [facility] -- Right foot gangrene, s/p right [...] -12/25 - well controlled. A1c 6.4 Dysphagia -MOVIE EXTRA eval -thickened liquids and pureed diet for [...]
--- OUTSIDE RECORDS SUMMARY | 2025-03-27 14:11 | XMS_ITS | Encounter Summary ---
Author Organization [employer] ([place], [place], [place], [place]) Address [address] [place] [address] Care Team Providers Care Acquisition Lead Name Role Phone Unavailable Primary Care Provider Unavailabl e Encounter Details Date Type Department Care Team (Late st Contact Info) Description 12/28/2021 Transcribed Document [facility] Family Medicine [facility] [address] ProviderDario MD [address], [place] [id number] Social History Tobacco Use Types Packs/Day Years [...] EEG-video monitoring was performed using the 32-channel [employer] monitoring system. The seizure detection computer was [...] noted suggestive of mild diffuse cerebral dysfunction. /[id number] MD TERRENCE Dong/AQ / TAF / MODL /[id number] documented in this encounter Plan of Treatment Not on file documented as of this encounter Visit Diagnoses Not on filedocumented in this encounter
--- OUTSIDE RECORDS SUMMARY | 2025-03-27 14:11 | XMS_ITS | Encounter Summary ---
Author Organization [employer] ([place], [place], [place], [place]) Address [address] [place] [address] Care Team Providers Care Sample Tester Grinder Name Role Phone Unavailable Primary Care Provider Unavailabl e Encounter Details Date Type Department Care Team (Late st Contact Info) Description 01/01/2022 Transcribed Document [facility] Family Medicine [facility] [place] [address] ProviderDario MD [address] [place], [place] [id number] Social History Tobacco Use Types Packs/Day Years [...] Discharge order Discharged to, Therapy : Unit, long-term Discharge Summary Comment, PT : Pt being [...] DEVAN RALPH, PT - 01/01/2022 16:30 EDT Correction Goals Mobility/Bed Mobility LTG PT Grid Goal [...]
--- OUTSIDE RECORDS SUMMARY | 2025-03-27 14:11 | XMS_ITS | Encounter Summary ---
Author Organization [employer] ([place], [place], [place], [place]) Address [address] [place] [address] Care Team Providers Care Clinical Assoc Name Role Phone Unavailable Primary Care Provider Unavailabl e Encounter Details Date Type Department Care Team (Late st Contact Info) Description 01/01/2022 Transcribed Document [facility] Family Medicine [address] [place] [address] ProviderDario MD [address] [place], [place] [id number] Social History Tobacco Use Types Packs/Day Years [...]
--- OUTSIDE RECORDS SUMMARY | 2025-03-27 14:11 | XMS_ITS | Encounter Summary ---
Author Organization [employer] ([place], [place], [place], [place]) Address [address] [place] [address] Care Team Providers Care Supervisor Area Name Role Phone Unavailable Primary Care Provider Unavailabl e Encounter Details Date Type Department Care Team (Late st Contact Info) Description 12/25/2021 Transcribed Document [facility] Family [facility] [place] [address] ProviderDario MD [address], [place] [id number] Social History Tobacco Use Types Packs/Day Years [...] 12/26/2021 3:18 EDT Electronically signed by Anthony [facility] Conversion Wet Suit Gluer Cerner at 12/29/2022 4:54 PM CDT documented in this encounter Plan of Treatment Not on file documented as of this encounter Visit Diagnoses Not on filedocumented in this encounter
--- OUTSIDE RECORDS SUMMARY | 2025-03-27 14:11 | XMS_ITS | Encounter Summary ---
Author Organization [employer] ([place], [place], [place], [place]) Address [address] [place] [address] Care Team Providers Care Senior Environmental Technician Name Role Phone Unavailable Primary Care Provider Unavailabl e Encounter Details Date Type Department Care Team (Late st Contact Info) Description 12/29/2021 Transcribed Document [facility] Family Medicine [address] [place] [address] ProviderDario MD [address] [place], [place] [id number] Social History Tobacco Use Types Packs/Day Years [...] CARE BEDSIDE NON-EXEMPT - 12/29/2021 17:01 EDT Electronically signed by Olena Cruz Conversion Divisional Merchandising Manager [place] at 12/29/2022 5:00 PM CDT documented in this encounter Plan of Treatment Not on file documented as of this encounter Visit Diagnoses Not on filedocumented in this encounter
--- OUTSIDE RECORDS SUMMARY | 2025-03-27 14:11 | XMS_ITS | Encounter Summary ---
Author Organization [employer] ([place], [place], [place], [place]) Address [address] [place] [address] Care Team Providers Care Private Duty Aide Name Role Phone Unavailable Primary Care Provider Unavailabl e Encounter Details Date Type Department Care Team (Late st Contact Info) Description 01/01/2022 Transcribed Document [facility] Family Medicine [address] [place] [address] ProviderDario MD [address], [place] [id number] Social History Tobacco Use Types Packs/Day Years Used Date Smoking Tobacco: Never Assessed Sex and Gender Information Value Date Recorded Sex Assigned at Not on file Legal Sex Male 5:38 PM CDT Gender Identity Not on file Sexual Orientation Not on file documented as of this encounter Miscellaneous Notes * Cerner Conversion Note - Historical ProviderMD - 01/01/2022 2:00 AM CDT Project Reservoir Engineer Details Entered On: 01/01/2022 1:24 EDT Performed [...] Non Emp RN - 01/01/2022 1:24 EDT documented in this encounter Plan of Treatment Not on file documented as of this encounter Visit Diagnoses Not on filedocumented in this encounter
--- OUTSIDE RECORDS SUMMARY | 2025-03-27 14:11 | XMS_ITS | Encounter Summary ---
Author Organization [employer] ([place], [place], [place], [place]) Address [address] [place] [address] Care Team Providers Care Division Human Resources Manager Name Role Phone Unavailable Primary Care Provider Unavailkatharine e Encounter Details Date Type Department Care Team (Late st Contact Info) Description 12/24/2021 Transcribed Document [facility] [place] Family Medicine [facility] [place] [address] ProviderDario MD [address] [place], [place] [id number] Social History Tobacco Use Types Packs/Day Years [...] MENDOZA OT Student - 12/26/2021 16:00 EDT Digital Asset Specialist Goals, OT Grooming LTG Grid Goal #1 [...] MENDOZA OT Student - 12/26/2021 16:00 EDT [place] OT Charges OT Eval Moderate Complexity : 1 OT Ther Activities Ea 15 Min : 1 LIANG HAWLEY OTR/Silva - 12/26/2021 16:24 EDT documented in this encounter Plan of Treatment Not on file documented as of this encounter Visit Diagnoses Not on filedocumented in this encounter
--- OUTSIDE RECORDS SUMMARY | 2025-03-27 14:11 | XMS_ITS | Encounter Summary ---
Author Organization [employer] ([place], [place], [place], [place]) Address [address] [place] [address] Care Team Providers Care Patrol Captain Name Role Phone Unavailable Primary Care Provider Unavailabl e Encounter Details Date Type Department Care Team (Late st Contact Info) Description 12/24/2021 Transcribed Document [facility] [place] [facility] [place] [address] ProviderDario MD [address] [place], [place] [id number] Social History Tobacco Use Types Packs/Day Years [...] Communication Barrier : None Primary Language : Tuvaluan Any Spiritual/Cultural Needs or Requests : No [...] 2005. (Last Updated: 01/15/2016 08:21:55 EDT by lAondra Hughes, RN) Alcohol: Alcohol Use History No. (Last Updated: 01/15/2016 08:21:59 EDT by Alondra Hughes, RN) Substance Abuse: Drug Use Hx: No. (Last Updated: 01/15/2016 08:22:03 EDT by Alondra Hughes, RN) Cardiovascular ASMT, ED Cardiovascular Assessment WDL : WDL with exceptions Cardiovascular Symptoms : Other: tachycardia Nail Bed Color : [place] Chest Pain : No Detailed Cardiovascular Assessment [...] EDT Gastrointestinal ED Gastrointestinal Assessment WDL : WDBetahny Lozano RN-PATIENT CARE BEDSIDE NON-EXEMPT - 12/24/2021 [...] the text rendition version of the form. Electronically signed by Olena Cruz Conversion Bridal Service Sales And Management Cerner at 12/29/2022 4:36 PM CDT documented in this encounter Plan of Treatment Not on file documented as of this encounter Visit Diagnoses Not on filedocumented in this encounter
--- OUTSIDE RECORDS SUMMARY | 2025-03-27 14:11 | XMS_ITS | Encounter Summary ---
Author Organization [employer] ([place], [place], [place], [place]) Address [address] [place] [address] Care Team Providers Care Pipeline Superintendent Name Role Phone Unavailable Primary Care Provider Unavailabl e Encounter Details Date Type Department Care Team (Late st Contact Info) Description 12/24/[address] [facility] Radiology [address] [place] [address] Anali South MD [address] [facility] [address] [place] [address] Social History Tobacco Use Types [...] HPI: 66 YO male who presented to [facility] from [facility] secondary recurrent seizure activity. He is known to our practice from [facility]. Pt has hx of seizures, DM II, HTN, HLD, functional quadraplegia. It appears that pt had increased seizure activity in 10/2021 when at [facility] (or may have led to him going there). Keppra was added to lamictal at that time, then was hospitalized again at [facility] and dilantin was added to regimen. [...] recurrent seizures he was transferred here to [facility] for further work up. No records from [facility] ER were seen on pts chart. Pt says he has felt feverish. No cp, soa. Has had occ cough. Concerned about sacral/buttock wound. States that previously at [facility] it was almost healed now it is bad again. C/o pain around right parotid gland. States it was found at [facility]. States they have been swabbing his mouth with lemon juice, that helped at first but now swollen. Pt has dentures but not with him. [facility] he was started on azithromycin and prednisone for parotid swelling. Prior hospitalizations: 11/2721-12/18/21 - [facility] - [facility] also of [facility] mg q8h. 08/2021 - [facility] -- Right foot gangrene, s/p right [...] no cp : FC put in at [place] at some point previously; no dysuria Neuro: [...] II -SSI -check a1c, FSBS ACHS Dysphagia -JEWELRY REPAIRER eval -thickened liquids and pureed diet for now. CAD s/p cardiac stent in past. PAD s/p right AKA. DVT prophylaxis -eliquis Assessment and treatment plan made in conjunction with Daphne South MD documented in this encounter Plan of Treatment Not on file documented as of this encounter Visit Diagnoses Not on filedocumented in this encounter
--- OUTSIDE RECORDS SUMMARY | 2025-03-27 14:11 | XMS_ITS | Encounter Summary ---
Author Organization [employer] ([place], [place], [place], [place]) Address [address] [place] [address] Care Team Providers Care Pattern Cutter Name Role Phone Unavailable Primary Care Provider Unavailabl e Encounter Details Date Type Department Care Team (Late st Contact Info) Description 12/29/2021 Transcribed Document [facility] [place] Family Medicine [address] [place] [address] ProviderDario MD [address] [place], [place] [id number] Social History Tobacco Use Types Packs/Day Years [...]
--- OUTSIDE RECORDS SUMMARY | 2025-03-27 14:11 | XMS_ITS | Clinical Summary ---
Author Organization [facility] Address [address] [place] [address] Care Team Providers Care Assurance Analyst Name Role Phone John Paul Orellana MD Primary Care Provider [phone] Allergies Active Allergy Reactions Criticality Noted Date [...] (04/20/2022): Added automatically from request for surgery [id number] Resolved Problems Problem Noted Date Diagnosed Date [...] drink first t clarita in the morning (EYE-WHEEL PRESS CLERK) to steady your nerves or to get [...] Screening 1955 [facility]-Medicare Annual Wellness (AWV) 1955 [facility]-/Child/Adol SDOH Screenings 1955 [facility]-Obesity Intervention 01/19/1960 Diabetes: Dental Exam 01/19/1964 [facility]- SDOH Screenings 01/19/1972 [facility]-Adult SDOH Screenings 01/19/1972 CT Colonography 1999 Colonoscopy 1999 FIT-DNA 1999 FIT 1999 FOBT 1999 Sigmoidoscopy 1999 [facility]-Colorectal Cancer Screening 1999 [facility]-Pneumococcal Vaccine: 50+ Years (2 of 2 - PPSV23) 01/06/2017 11/11/2016 [facility]-Zoster Vaccines (2 of 3) 01/06/2017 11/11/2016 [facility]-Diabetes: Hemoglobin A1C 10/18/202204/2022, 10/28/2021, 07/12/2020, Additional history exists [id number] Vaccine (3 - season) 2024 12/17/2020, 11/20/2020 [...] ORDERABLES Final R esult [facility] [address] [place] [address] * (ABNORMAL) Hemoglobin A1c (04/20/2022 11:09 AM [...] Adults <6.0% Children and Adolescents <7.5% Source: [place] Diabetes Association. Standards of medical care in diabetes,2017. Diabetes Care.2017:40 (suppl 1):S1-S135. HbA1c assay performed by an ion-exchange chromatography method that is certified traceable to the DCCT. Crys Herrera [facility] BLOOD ORDERABLES Final Result [facility] [address] [place] [address] from Last 3 Months or Most Recently Relevant to Health Maintenance Additional Health Concerns Infection Onset Date Last Indicated MRSA 04/20/2022 05/28/2022 Insurance [employer] MEDICARE Advance Directives Documents on File Type Date Recorded Patient Director Of Customer Acquisition Expl anation Advance Directives and Livin g Will 04/20/2022 2:05 PM Care Teams Assurance Analyst Relationship Specialty Start Date End Date John Paul Orellana MD [address] [place] [address] PCP - General 01/24/21
--- OUTSIDE RECORDS SUMMARY | 2025-03-27 14:11 | XMS_ITS | Encounter Summary ---
Author Organization [employer] ([place], [place], [place], [place]) Address [address] [place] [address] Care Team Providers Care Cooperative Education Director Name Role Phone Unavailable Primary Care Provider Unavailabl e Encounter Details Date Type Department Care Team (Late st Contact Info) Description 01/01/2022 Transcribed Document [facility] [place] [facility] [place] [address] ProviderDario MD [address] [place] [address] Social History Tobacco Use Types [...] these instructions at home: Medicines ??? Take ulra-bco-stkfjwg and prescription medicines only as told by [...] medicines are used to treat seizures. Take sczj-kqg-oxeazqk and prescription medicines only as told by your doctor. This information is not intended to replace advice given to you by your health care provider. Make sure you discuss any questions you have with your health care provider. Document Revised: 03/07/2021 Document Reviewed: 03/07/2021 [employer] Patient Education ? 2020 [employer]. documented in this encounter Plan of Treatment Not on file documented as of this encounter Visit Diagnoses Not on filedocumented in this encounter
--- OUTSIDE RECORDS SUMMARY | 2025-03-27 14:11 | XMS_ITS | Encounter Summary ---
Author Organization [employer] ([place], [place], [place], [place]) Address [address] [place] [address] Care Team Providers Care Environmental Technology Professor Name Role Phone Unavailable Primary Care Provider Unavailabl e Encounter Details Date Type Department Care Team (Late st Contact Info) Description 12/28/2021 Transcribed Document [facility] Family Medicine [facility] [place] [address] ProviderDario MD [address], [place] [id number] Social History Tobacco Use Types Packs/Day Years [...] On: 12/28/2021 13:59 EDT by CALIXTO MCCABE, Manager Hris-Regulatory Consultant Care Management Progress Note Discharge Arrangements : [...] Condition of Patient Patient Discharge Goal : shelter facility Is the Patient Meeting Medical Necessity : Yes Did you Attend Multidisciplinary Rounds? : No CALIXTO MCCABE, Manager Hris-Regulatory Consultant - 12/28/2021 13:59 EDT Narrative Progress Note [...] CM will continue to follow. CALIXTO MCCABE, Manager Hris-Regulatory Consultant - 12/28/2021 13:59 EDT Electronically signed by Olena Cruz Conversion [employer] Fabrication Supervisor Cerner at 12/29/2022 4:54 PM CDT documented in this encounter Plan of Treatment Not on file documented as of this encounter Visit Diagnoses Not on filedocumented in this encounter
--- OUTSIDE RECORDS SUMMARY | 2025-03-27 14:11 | XMS_ITS | Encounter Summary ---
Author Organization [employer] ([place], [place], [place], [place]) Address [address] [place] [address] Care Team Providers Care Dice Dealer Name Role Phone Unavailable Primary Care Provider Unavailabl e Encounter Details Date Type Department Care Team (Late st Contact Info) Description 01/01/2022 Transcribed Document [facility] Family Medicine [facility] [place] [address] ProviderDario MD [address] [place] [address] Social History Tobacco Use Types Packs/Day Years Used Date Smoking Tobacco: Never Assessed Sex and Gender Information Value Date Recorded Sex Assigned at Not on file Legal Sex Male 5:38 PM CDT Gender Identity Not on file Sexual Orientation Not on file documented as of this encounter Miscellaneous Notes * Cerner Conversion Note - Dario ProviderMD - 01/01/2022 4:27 PM CDT [facility] [place] [address] VITALY POOL :1955 Visit Time:12/24/2021 Your [...] Goals Patient Discharge Goal Patient Discharge Goal: alf facility Discharge Vitals Temperature 36.3 ??C Heart Rate (Monitored) 100 Respiratory Rate 16 Blood Pressure 115/79 What to do next Instructions From Your Care Team Discharge Activity: Discharge Activity: Activity as tolerated Diet: Discharge Diet: Resume usual diet as tolerated Follow-Up Appointments Follow Up with ROBERT CLAYTON MD-INT When Within 2 to 3 days Comments at [facility] Where: Medications What How Much When Instructions [...] these instructions at home: Medicines ??? Take xwot-ynx-btwvjyc and prescription medicines only as told by [...] the [place] ask your local department of [employer] when you can drive. ??? Get a [...] medicines are used to treat seizures. Take vgxf-zxc-ctxdnwz and prescription medicines only as told by your doctor. This information is not intended to replace advice given to you by your health care provider. Make sure you discuss any questions you have with your health care provider. Document Revised: 03/07/2021 Document Reviewed: 03/07/2021 [employer] Patient Education ?? 2020 [employer]. Emergency Awareness and Preventative Care STROKE is [...] Assistance with quitting is available by contacting 4-836-KMAC-NOW. This is a free resource providing counseling, [...] range between ( 0.0 and 7.0 ) [place] #: 0.92 K/uL -- Normal range between ( 0.16 and 1.00 ) Eos #: 0.48 x10(3)/uL -- Normal range between ( 0.00 and 0.80 ) [place] %: 9.9 % -- Normal range between [...] was given the opportunity to ask questions. Patient/Energy Project Engineer Name: Patient/Energy Project Engineer Signature: Relationship to Patient: Clinician/Hospital Energy Project Engineer Signature: Date: documented in this encounter Plan of Treatment Not on file documented as of this encounter Visit Diagnoses Not on filedocumented in this encounter
--- OUTSIDE RECORDS SUMMARY | 2025-03-27 14:11 | XMS_ITS | Encounter Summary ---
Author Organization [employer] ([place], [place], [place], [place]) Address [address] [place] [address] Care Team Providers Care Metaphysics Teacher Name Role Phone Unavailable Primary Care Provider Unavailabl e Encounter Details Date Type Department Care Team (Late st Contact Info) Description 01/01/2022 Transcribed Document [facility] [place] [facility] [place] [address] ProviderDario MD [address] [place] [address] Social History Tobacco Use Types [...] 01/01/2022 14:06 EDT by Vaishnavi Cunha V, Costume Designer General Doc Final Discharge Planning Discharge Arrangements : Patient Post-Acute Information Patient Name: VITALY POOL Gender: Male : [birth year] Age: 66 Years [place] Referral(s): Service: Organization: Business Address: Phone Number: [facility] [address], [place], [address] Patient Offered Choice/Affiliations Explained : [...] SNF with Medicare Certification-03 Vaishnavi Cunha V, Costume Designer General Doc - 01/01/2022 14:06 EDT Final Narrative Note Final Narrative Note : DC back to [facility] for rehab via [facility] ambulance at 7pm. Vaishnavi Cunha V Costume Designer General Doc - 01/01/2022 14:06 EDT documented in this encounter Plan of Treatment Not on file documented as of this encounter Visit Diagnoses Not on filedocumented in this encounter
--- OUTSIDE RECORDS SUMMARY | 2025-03-27 14:11 | XMS_ITS | Encounter Summary ---
Author Organization [employer] ([place], [place], [place], [place]) Address [address] [place] [address] Care Team Providers Care Coverstitch Elastic Attacher Name Role Phone Unavailable Primary Care Provider Unavailabl e Encounter Details Date Type Department Care Team (Late st Contact Info) Description 12/31/2021 Transcribed Document [facility] [facility] [place] [address] ProviderDario MD [address] [place], [place] [address] Social History Tobacco Use Types Packs/Day Years [...] On: 12/31/2021 15:09 EDT by CINTHYA RIVERA, RN-Residential ManagerProgram Attendant Progress Note Discharge Arrangements : Patient Post-Acute [...] Condition of Patient Patient Discharge Goal : intermediate facility Were Referrals Sent to Post Acute Providers : Yes Certification for Post-Acute Care Initiated : 12/30/2021 EDT CINTHYA RIVERA, JESSEE-Residential Manager - 12/31/2021 15:09 EDT Narrative Progress Note Narrative Progress Note : HD#7 RRS MOD Per F.C. liaison, no precert obtained for 12.31. CM rescheduled ems for 01.01@1900. BS nurse and attending updated. Historical Progress Note : updated F.C. with pt/ot notes via naveal in order to facilitate precert. CINTHYA RIVERA, RN-Residential Manager - 12/31/21 08:46:17 HD#6 ELOS-4 RAR-moderate CM sent PT/OT updates to [facility] for insurance precert approval. CM rescheduled patient[facility] s [facility] transport Patient is medically ready for discharge. CM sent updates to [facility]. [facility] [place] intiated insurance precert today. DCP-[facility] when insurance precert is approved. [facility] scheduled tentively for 6pm om 12/30 in case insurance precert is approved. Vaishnavi Cunha V Habitat Conservation Planner [facility] [place] - 12/30/21 13:29:12 HD#6 ELOS-4 RAR-moderate CM sent PT/OT updates to [facility] for insurance precert approval. CM rescheduled patient's [facility] transport to Wednesday, 12/31 at 7pm. Per Lisandra with [facility], transport time is ok since he is returning there. If precert isn't approved, CM will need to reschedule transportation. DCP-[facility] back [facility] pending insurance precert approved. [facility] scheduled tentively for 7pm om 12/31 in case insurance precert is approved. Vaishnavi Cunha V Habitat Conservation Planner [facility] [place] - 12/30/21 13:33:56 Patient is medically ready for discharge. CM sent updates to [facility]. [facility] [place] intiated insurance precert today. [facility] [place] when insurance precert is [facility]. [facility] scheduled tentively for 6pm om 12/30 in case insurance precert is approved. Vaishnavi Cunha V Habitat Conservation Planner [facility] [place] - 12/29/21 12:04:25 Patient is medically ready for discharge. Cm sent updates to [facility]. CM sent message to Lisandra from [facility] asking for precert with insurance to be started as soon as possible. Cm scheduled [facility] for 6 pm 12/29 if bed is available and precert obtained. [facility] will need to be [facility] if patient is not approved to go. CM will continue to follow. CALIXTO MCCABE, Habitat Conservation Planner-Chief Digital Officer - 12/28/21 13:59:37 CINTHYA RIVERA, RN-Residential Manager - 12/31/2021 15:09 EDT documented in this encounter Plan of Treatment Not on file documented as of this encounter Visit Diagnoses Not on filedocumented in this encounter
--- OUTSIDE RECORDS SUMMARY | 2025-03-27 14:11 | XMS_ITS | Encounter Summary ---
Author Organization [employer] ([place], [place], [place], [place]) Address [address] [place] [address] Care Team Providers Care Baker Bench Name Role Phone Unavailable Primary Care Provider Unavailabl e Encounter Details Date Type Department Care Team (Late st Contact Info) Description 12/25/2021 Transcribed Document [facility] [place] [facility] [place] [address] ProviderDario MD [address], [place] [id number] Social History Tobacco Use Types Packs/Day Years Used Date Smoking Tobacco: Never Assessed Sex and Gender Information Value Date Recorded Sex Assigned at Not on file Legal Sex Male 5:38 PM CDT Gender Identity Not on file Sexual Orientation Not on file documented as of this encounter Miscellaneous Notes * Cerner Conversion Note - Historical ProviderMD - 12/25/2021 9:[address] [facility] SHUT OFF WORKER Charges Entered On: 12/25/2021 9:42 EDT Performed On: 12/25/2021 9:41 EDT by LUKE ACKERMAN SLP [facility] SHUT OFF WORKER Charges Screen For Speech Therapy : 1 LUKE ACKERMAN SLP - 12/25/2021 9:41 EDT documented in this encounter Plan of Treatment Not on file documented as of this encounter Visit Diagnoses Not on filedocumented in this encounter
--- OUTSIDE RECORDS SUMMARY | 2025-03-27 14:11 | XMS_ITS | Encounter Summary ---
Author Organization [employer] ([place], [place], [place], [place]) Address [address] [place] [address] Care Team Providers Care Information Security Manager Name Role Phone Unavailable Primary Care Provider Unavailabl e Encounter Details Date Type Department Care Team (Late st Contact Info) Description 12/25/2021 Transcribed Document [facility] [place] [facility] [place] [address] ProviderDario MD [address] [place], [place] [id number] Social History Tobacco Use Types Packs/Day Years [...] On: 12/25/2021 23:55 EDT by Smooth [place] Side Door Man Cert Lead Meds to Bed Enrollment Patient Enrollment Decision: : Yes/enroll in meds to bed program [employer] [place] Side Door Man Cert Lead - 12/26/2021 10:35 EDT documented in this encounter Plan of Treatment Not on file documented as of this encounter Visit Diagnoses Not on filedocumented in this encounter
--- OUTSIDE RECORDS SUMMARY | 2025-03-27 14:11 | XMS_ITS | Encounter Summary ---
Author Organization [employer] ([place], [place], [place], [place]) Address [address] [place] [address] Care Team Providers Care Livestock Speculator Name Role Phone Unavailable Primary Care Provider Unavailabl e Encounter Details Date Type Department Care Team (Late st Contact Info) Description 12/24/2021 Transcribed Document [facility] [place] [facility] [place] [address] ProviderDario MD [address] [place], [place] [id number] Social History Tobacco Use Types Packs/Day Years [...] hyperlipidemia, diabetes who was transferred today from [facility] for recurrent seizures. The patient himself is a vague historian, but does provide the history that he was admitted to [facility] in October for intractable seizures and started on 2 new antiepileptic medications at that time. He could not tell me which antiepileptic medications were new, although I believe that they are Keppra and Dilantin. He apparently has been on Lamictal for a longer period of time. He tells me he has had seizures for 8-9 years and follows with a neurologist in [place] whom I believe is named Dr. Carter. [...] here. Recently, he has been residing at [facility] which is a rehab facility following his admission to [facility] in October. He tells me that typically he lives at home fairly independently, although does have home health services. Presently, he is denying headache or any other significant complaints. 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 HOME [...] labored. EXTREMITIES: Again, there is a right pdezs-hfg-lodx amputation. Left leg does not show any [...] weeks. Apparently, he was recently hospitalized at [facility] with intractable seizures resulting in the addition [...] the patient as well as a physician lens assistant with the admitting team. Neurology will continue to follow closely. /[id number] MD KIYA Monique/ALECIA / KIYA / DARIO /[id number] documented in this encounter Plan of Treatment Not on file documented as of this encounter Visit Diagnoses Not on filedocumented in this encounter
--- OUTSIDE RECORDS SUMMARY | 2025-03-27 14:11 | XMS_ITS | Encounter Summary ---
Author Organization [employer] ([place], [place], [place], [place]) Address [address] [place] [address] Care Team Providers Care Nursing Secretary Name Role Phone Unavailable Primary Care Provider Unavailabl e Encounter Details Date Type Department Care Team (Late st Contact Info) Description 01/01/[address] [facility] [place] [address] [place] [address] ProviderDario MD [address], [place] [id number] Social History Tobacco Use Types Packs/Day Years [...]
--- OUTSIDE RECORDS SUMMARY | 2025-03-27 14:11 | XMS_ITS | Encounter Summary ---
Author Organization [employer] ([place], [place], [place], [place]) Address [address] [place] [address] Care Team Providers Care Electric Refrigerator Servicer Name Role Phone Unavailable Primary Care Provider Unavailabl e Encounter Details Date Type Department Care Team (Late st Contact Info) Description 12/28/2021 Transcribed Document [facility] [place] [facility] [place] [address] ProviderDario MD [address], [place] [id number] Social History Tobacco Use Types Packs/Day Years [...] EEG-video monitoring was performed using the 32-channel Yoovi monitoring system. The seizure detection computer was [...] epileptogenicity in the left anterior temporal region. /[id number] MD TERRENCE Dong/ALECIA / TAF / MODL /[id number] documented in this encounter Plan of Treatment Not on file documented as of this encounter Visit Diagnoses Not on filedocumented in this encounter
--- OUTSIDE RECORDS SUMMARY | 2025-03-27 14:11 | XMS_ITS | Encounter Summary ---
Author Organization [employer] ([place], [place], [place], [place]) Address [address] [place] [address] Care Team Providers Care Boilermaker Name Role Phone Unavailable Primary Care Provider Unavailabl e Encounter Details Date Type Department Care Team (Late st Contact Info) Description 01/01/2022 Transcribed Document [facility] [place] [address] [place] [address] ProviderDario MD [address], [place] [id number] Social History Tobacco Use Types Packs/Day Years [...] 01/01/2022 16:26 EDT Electronically signed by [facility] Conversion Rn Complex Care Cerner at 12/29/2022 4:56 PM CDT documented in this encounter Plan of Treatment Not on file documented as of this encounter Visit Diagnoses Not on filedocumented in this encounter
--- OUTSIDE RECORDS SUMMARY | 2025-03-27 14:11 | XMS_ITS | Encounter Summary ---
Author Organization [employer] ([place], [place], [place], [place]) Address [address] [place] [address] Care Team Providers Care Sql Analyst Name Role Phone Unavailable Primary Care Provider Unavailabl e Encounter Details Date Type Department Care Team (Late st Contact Info) Description 12/25/2021 Transcribed Document [facility] [place] [facility] [place] [address] ProviderDario MD [address] [place], [place] [id number] Social History Tobacco Use Types Packs/Day Years Used Date Smoking Tobacco: Never Assessed Sex and Gender Information Value Date Recorded Sex Assigned at Not on file Legal Sex Male 5:38 PM CDT Gender Identity Not on file Sexual Orientation Not on file documented as of this encounter Miscellaneous Notes * Cerner Conversion Note - Historical ProviderMD - 12/25/2021 9:42 AM CDT Discharge Summary, FLOUR BROKER Entered On: 12/25/2021 9:43 EDT Performed On: 12/25/2021 9:42 EDT by LUKE ACKERMAN SLP Discharge Notation. FLOUR BROKER Dysphagia Treatment After Discharge : No Discharge Diet : Regular Discharge Liquids : Thin Discharge Compensatory Strategies : Upright for meals Repeat Instrumental Prior To : Not applicable Repeat Instrumental Timeline : n/a Discharge Summary Comment, FLOUR BROKER : Pt was positioned upright at 90 [...] 9:42 EDT Swallow Plan/Goals Swallow LTG Grid FLOUR BROKER Street Inspector Goal #[address] Inspector Goal #2 Swallow LTG : Safely tolerates [...]
--- OUTSIDE RECORDS SUMMARY | 2025-03-27 14:11 | XMS_ITS | Encounter Summary ---
Author Organization [employer] ([place], [place], [place], [place]) Address [address] [place] [address] Care Team Providers Care Corporate Legal Secretary Name Role Phone Unavailable Primary Care Provider Unavailabl e Encounter Details Date Type Department Care Team (Late st Contact Info) Description 12/29/2021 Transcribed Document [facility] [place] [facility] [place] [address] ProviderDario MD [address], [place] [id number] Social History Tobacco Use Types Packs/Day Years [...] in admission, no further spells after EEG underwriting support manager for several days and otherwise has remained [...]
--- OUTSIDE RECORDS SUMMARY | 2025-03-27 14:11 | XMS_ITS | Encounter Summary ---
Author Organization [facility] Address [address] [place] [address] Care Team Providers Care Pipe Puller Name Role Phone John Pual Orellana MD Primary Care Provider [phone] Encounter Details Date Type Department Care Team (Late st Contact Info) Description 04/21/2022 Lab Requisition [facility] [address] [place] [address] Delvis Dominguez MD [address] [facility] 7th [facility] [address] [place] [address] Encounter for general adult medical [...] drink first t clarita in the morning (EYE-DREDGE BOAT ENGINEER) to steady your nerves or to get [...] GENERAL ORDERABLES Final Result [facility] [address] [place] [address] documented in this encounter Visit Diagnoses Diagnosis Encounter for general adult medical examination without abnormal findings documented in this encounter Additional Health Concerns Infection Onset Date Last Indicated Resolved Time 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
--- OUTSIDE RECORDS SUMMARY | 2025-03-27 14:11 | XMS_ITS | Encounter Summary ---
Author Organization [employer] ([place], [place], [place], [place]) Address [address] [place] [address] Care Team Providers Care Api Developer Name Role Phone Unavailable Primary Care Provider Unavailabl e Encounter Details Date Type Department Care Team (Late st Contact Info) Description 12/28/2021 Transcribed Document [facility] [place] Medicine [facility] [place] [address] ProviderDario MD [address], [place] [id number] Social History Tobacco Use Types Packs/Day Years [...] CT head mild atrophy Studies personally reviewed documented in this encounter Plan of Treatment Not on file documented as of this encounter Visit Diagnoses Not on filedocumented in this encounter
--- OUTSIDE RECORDS SUMMARY | 2025-03-27 14:11 | XMS_ITS | Encounter Summary ---
Author Organization [employer] ([place], [place], [place], [place]) Address [address] [place] [address] Care Team Providers Care Easement Worker Name Role Phone Unavailable Primary Care Provider Unavailabl e Encounter Details Date Type Department Care Team (Late st Contact Info) Description 01/01/2022 Transcribed Document [facility] Radiology [address] [place] [address] Anali South MD [address] [address] Social History Tobacco Use [...] or apply Heel Medix boots Apply Aloe [place] 3 (clear) or Sensicare 3 (white Zinc) [...] 66 YO male who presented to [facility] from [facility] secondary recurrent seizure activity. He is known to our practice from [facility]. Pt has hx of seizures, DM II, HTN, HLD, functional quadraplegia. It appears that pt had increased seizure activity in 10/2021 when at [facility] (or may have led to him going there). Keppra was added to lamictal at that time, then was hospitalized again at [facility] and dilantin was added to regimen. Despite med changes pt has continued to have seizures. It appears dilantin was low and provider had plans to start titration at [facility]. Pt had seizure for 19 min at [facility] yesterday and was still having seizure when transported by EMS. O2 sat was starting to drop. Previously he had had a seizure over 10 min. Do to recurrent seizures he was transferred here to [facility] for further work up. No records from [facility] ER were seen on pts chart. Pt says he has felt feverish. No cp, soa. Has had occ cough. Concerned about sacral/buttock wound. States that previously at [facility] it was almost healed now it is bad again. C/o pain around right parotid gland. States it was found at [facility]. States they have been swabbing his mouth with lemon juice, that helped at first but now swollen. Pt has dentures but not with him. At [facility] he was started on azithromycin [...] sputum. Urinating well. Ready to discharge to [facility]. PE: Vitals Signs (last 24 hrs) Last [...]
--- OUTSIDE RECORDS SUMMARY | 2025-03-27 14:11 | XMS_ITS | Encounter Summary ---
Author Organization [employer] ([place], [place], [place], [place]) Address [address] [place] [address] Care Team Providers Care Patcher Helper Name Role Phone Unavailable Primary Care Provider Unavailabl e Encounter Details Date Type Department Care Team (Late st Contact Info) Description 12/24/2021 Transcribed Document [facility] [place] Family Medicine [facility] [place] [address] ProviderDario MD [address], [place] [id number] Social History Tobacco Use Types Packs/Day Years [...] LUKE ACKERMAN, ITA General Information Visit Type, REDUCTION PLANT SUPERVISOR : Initial evaluation Patient Orders : Speech Language Pathology Modified Barium Swallow Study -111 Start: 12/25/21 8:47:00 EDT, Routine, For Other (see special instructions), Dysphagia - INGRID ELLSWORTH PA-FAM REDUCTION PLANT SUPERVISOR Bedside Swallow Evaluation - Start: 12/24/21 15:16:00 EDT, Routine, For Swallow Eval and Treat -111 INGRID ELLSWORTH PA-FAM Admission Date : Admission Date/Time: 12/24/21 13:29:00 Medical Chart Reviewed, REDUCTION PLANT SUPERVISOR : Yes Personal Devices : Personal Devices No Devices Recorded Assistive Devices : Assistive Devices No Devices Recorded Active Diagnoses : 12/24/2021 12:00 Seizure 12/24/2021 12:00 Seizure - Recurrent Therapy Diagnosis, REDUCTION PLANT SUPERVISOR : Pt with recent hx for dysphagia ?secondary to intubation. Recommendations: 1. Ok to continue with current puree/nectar diet 2. MBS today for further pharyngeal assessment Previous Swallow Precautions : No previous ST in EMR Diet/Intake Prior to Current Admission : Puree/nectar Diet/Intake During Current Admission : puree/nectar Intubation Comment, REDUCTION PLANT SUPERVISOR : n/a Vital Signs RTF : Vitals [...] 8:53 EDT General Status Patient Received Status, REDUCTION PLANT SUPERVISOR : Supine in bed Treatment Start Time, REDUCTION PLANT SUPERVISOR : 12/25/2021 8:33 EDT Patient Left Status, REDUCTION PLANT SUPERVISOR : Long sitting in bed Treatment End Time, REDUCTION PLANT SUPERVISOR : 12/25/2021 8:45 EDT Treatment Time, REDUCTION PLANT SUPERVISOR : 12 Minute(s) LUKE ACKERMAN SLP - [...] Oral Mechanism for Daily Living : Intact REDUCTION PLANT SUPERVISOR Cough : Strong Facial Appearance: : Symmetrical [...] evidence of dysphagia present Further Evaluation Required, REDUCTION PLANT SUPERVISOR : MBS today Swallowing Outcome Measures : Functional Oral Intake Scale (FOIS) Functional Oral Intake Scale (FOIS) : Level V Bedside Swallow Overall Impressions : Pt admitted from SNF w/ intractable seizures. Per pt report/chart review, pt w/ recent hx for dysphagia given intubation during acute hospital stay. PMHx is significant for seizure disorder, DM II, HTN, HLD, and functional quadraplegia. REDUCTION PLANT SUPERVISOR consulted for bedside dysphagia evaluation. Today, pt is alert and oriented x4. No difficulty participating in evaluation. Oral skills appear functional despite edentulism. No overt pharyngeal patterns appreciated with thin via straw, pudding, or solids. Given acute hx of dysphagia, pt appears safe to continue with a puree diet and nectar liquids. Medication in puree. Ok for ice after oral care. REDUCTION PLANT SUPERVISOR will proceed with MBS prior to diet advancement. Pt is agreeable to plan for MBS this AM. RN alerted to results and recommendations. LUKE ACKERMAN SLP - 12/25/2021 8:53 EDT Swallow Recommendations Recommended Diet Type, SwRec : Pureed Recommended Liquid Diet, SwRec : [place] Feeding Presentation Style, SwRec : No restrictions Swallow Position, SwRec : Upright 90 degrees Comp Strategies/Sw Precautions, SwRec : Upright for meals Supervision Level w/Meals, SwRec : Independent, complete Recommended Med Present, SwRec : With puree/pudding Recommended Exam, Sw Rec : MBSS/VFSS Repeat Swallow Exam Timeframe : 1-3 days LUKE ACKERMAN SLP - 12/25/2021 8:53 EDT Therapy Indication Assessment REDUCTION PLANT SUPERVISOR Indicated : Yes REDUCTION PLANT SUPERVISOR Interdisciplinary Consultation Needs : No REDUCTION PLANT SUPERVISOR Problem List : Impaired, Swallowing Potential Barriers to REDUCTION PLANT SUPERVISOR : None evident REDUCTION PLANT SUPERVISOR Rehabilitation Potential : Good LUKE ACKERMAN SLP - 12/25/2021 8:53 EDT Swallow Plan/Goals Treatment Frequency, REDUCTION PLANT SUPERVISOR : 5 times per wk Treatment Plan Est w/Pt/Caregvr, Swallow : Yes Treatment Duration, REDUCTION PLANT SUPERVISOR : One week Therapy at Next Level of Care, REDUCTION PLANT SUPERVISOR : long-term facility LUKE ACKERMAN SLP - 12/25/2021 8:53 EDT Swallow LTG Grid REDUCTION PLANT SUPERVISOR 6Th Grade Teacher Goal #1 REDUCTION PLANT SUPERVISOR Jail Goal #2 Swallow LTG : Safely tolerates recommended diet Other: Pt goal: none stated Status : Initial LUKE ACKERMAN SLP - 12/25/2021 8:53 EDT LUKE ACKERMAN [...] LUKE ACKERMAN SLP - 12/25/2021 8:53 EDT REDUCTION PLANT SUPERVISOR Education Assessment Grid 1 Diet Recommendation : Verbalizes understanding Evaluation Results : Verbalizes understanding Instrumental Evaluation : Verbalizes understanding LUKE ACKERMAN SLP - 12/25/2021 8:[address] [facility] REDUCTION PLANT SUPERVISOR Charges Evaluation Swallowing Function : 1 LUKE ACKERMAN SLP - 12/25/2021 8:53 EDT Anticipated Discharge Needs, REDUCTION PLANT SUPERVISOR Anticipated Discharge to : Extended Care Facility Recommend Continued Therapy at Discharge : Yes (Comment: pending MBS [LUKE ACKERMAN SLP - 12/25/2021 8:53 EDT] ) LUKE ACKERMAN SLP - 12/25/2021 8:53 EDT documented in this encounter Plan of Treatment Not on file documented as of this encounter Visit Diagnoses Not on filedocumented in this encounter
--- OUTSIDE RECORDS SUMMARY | 2025-03-27 14:11 | XMS_ITS | Encounter Summary ---
Author Organization [employer] ([place], [place], [place], [place]) Address [address] [place] [address] Care Team Providers Care Floodplain Manager Name Role Phone Unavailable Primary Care Provider Unavailabl e Encounter Details Date Type Department Care Team (Late st Contact Info) Description 12/31/2021 Transcribed Document [facility] [place] [address] ProviderDario MD [address], [place] [phone] Social History Tobacco Use Types Packs/Day Years [...] On: 12/31/2021 8:44 EDT by CINTHYA RIVERA RN-Production Recovery OperatorFitter/Welder Progress Note Discharge Arrangements : Patient Post-Acute [...] Condition of Patient Patient Discharge Goal : nursing home facility CINTHYA RIVERA RN-Production Recovery Operator - 12/31/2021 8:44 EDT Narrative Progress Note Narrative Progress Note : updated F.C. with pt/ot notes via [facility] in order to facilitate precert. Historical Progress Note : HD#6 ELOS-4 RAR-moderate CM sent PT/OT updates to [facility] for insurance precert approval. CM rescheduled patient[facility] s [facility] transport Patient is medically ready for discharge. CM sent updates to [facility]. [facility] [place] intiated insurance precert today. DCP[facility] [place] [place] [facility] when insurance precert is approved. [facility] scheduled tentively for 6pm om 12/30 in case insurance precert is approved. Vaishnavi Cunha V Flatwork Assembler Powdered Metal Supervisor - 12/30/21 13:29:12 HD#6 ELOS-4 RAR-moderate CM sent PT/OT updates to [facility] for insurance precert approval. CM rescheduled patient's [facility] transport to Wednesday, 12/31 at 7pm. Per Lisandra with [facility], transport time is ok since he is returning there. If precert isn't approved, CM will need to reschedule transportation. [facility] [place] [place] prec[facility]. [facility] scheduled tentively for 7pm om 12/31 in case insurance precert is approved. Vaishnavi Cunha V Flatwork Assembler Powdered Metal Supervisor - 12/30/21 13:33:56 Patient is medically ready for discharge. CM sent updates to [facility]. [facility] [place] intiated insurance precert today. DCP-Transfer back to [facility] when insurance precert is approved. [facility] scheduled tentively for 6pm om 12/30 in case insurance precert is approved. Vaishnavi Cunha V Flatwork Assembler Powdered Metal Supervisor - 12/29/21 12:04:25 Patient is medically ready for discharge. Cm sent updates to [facility]. CM sent message to Lisandra from [facility] asking for precert with insurance to be started as soon as possible. Cm scheduled [facility] for [facility] pm 12[facility]29 if bed is available and precert obtained. [facility] will need to be changed if patient is not approved to go. CM will continue to follow. CALIXTO MCCABE Flatwork Assembler-Director Of Financial Aid - 12/28/21 13:59:37 CINTHYA RIVERA, RN-Production Recovery Operator - 12/31/2021 8:44 EDT Electronically signed by Anthony [facility] Conversion Snap Attacher Cerner at 12/29/2022 4:46 PM CDT documented in this encounter Plan of Treatment Not on file documented as of this encounter Visit Diagnoses Not on filedocumented in this encounter
--- OUTSIDE RECORDS SUMMARY | 2025-03-27 14:11 | XMS_ITS | Encounter Summary ---
Author Organization [employer] ([place], [place], [place], [place]) Address [address] [place] [address] Care Team Providers Care Soundscriber Mechanic Name Role Phone Unavailable Primary Care Provider Unavailabl e Encounter Details Date Type Department Care Team (Late st Contact Info) Description 12/24/2021 Transcribed Document [facility] [place] [facility] [place] [address] ProviderDario MD [address] [place], [place] [id number] Social History Tobacco Use Types Packs/Day Years [...] exercises, Transfer training, Wheelchair management training RICHARD VASQUEZ PT Student - 12/26/2021 14:57 EDT Short [...] VASQUEZ PT Student - 12/26/2021 14:57 EDT Long-Term Goals BalanceLTG Grid Goal #1 Activity : [...] THEO GARCIA, PT - 12/26/2021 16:22 EDT RICHARD VASQUEZ [...]
--- OUTSIDE RECORDS SUMMARY | 2025-03-27 14:11 | XMS_ITS | Encounter Summary ---
Author Organization [employer] ([place], [place], [place], [place]) Address [address] [place] [address] Care Team Providers Care Chute Loader Name Role Phone Unavailable Primary Care Provider Unavailabl e Encounter Details Date Type Department Care Team (Late st Contact Info) Description 12/24/2021 Transcribed Document [facility] [place] Family Medicine [address] [place] [address] ProviderDario MD [address] [place], [place] [address] Social History Tobacco Use Types Packs/Day Years [...] 15:53 EDT by Juani Torrez Emergency Room Text Transcriber Phone Call for Consults Consult Phone Call/Page Attempt : First call Consult Reason : recurrent seizures Provider Service Notified Name : Neurology Physician Covering for Consult : CHAVA OCHOA MD-NORMA Date and Time Call Returned : 12/24/2021 15:53 EDT Consult, Additional Information : spoke with Chava combs taken Juani Torrez, Emergency Room Text Transcriber - 12/24/2021 15:53 EDT documented in this encounter Plan of Treatment Not on file documented as of this encounter Visit Diagnoses Not on filedocumented in this encounter
--- OUTSIDE RECORDS SUMMARY | 2025-03-27 14:11 | XMS_ITS ---
Author Organization [employer] Care Team Providers Care Pot Room Supervisor Name Role Phone Cinthia Robertson Unavailable UnavailYUMIKO Gimenez Unavailable Unavailable Allergies and adverse reactions Code CodeSystem Substance Reaction Severity StartDate Concern Status Wellbutrin Unknown 03/06/2022 active Toradol Unknown 03/06/2022 active 5489 RXNORM HYDROcodone Unknown 03/06/2022 active 2670 RXNORM Codeine Unknown 03/06/2022 active Care Team Name Role Address Phone Organization Dates YUMIKO MEHTA PCP [address] [place] [facility] [address], [facility], [facility] (Office): : Yoni 03/06/2022 - 01/25/2023 Cinthia Robertson [address] [place] [facility] [address], [place] (Office): : Yoni 03/06/2022 - 01/25/2023 Goals Section Goals Description Status Target Date 2. Vitaly's will Pressure ulce r on his sacrum will show signs of healing and remain free from infection by/through review date. 1 . Vitaly's left toe will show signs of improvement [...] completed Pneumococcal conjugate vaccine 15-valent (PCV15), polysaccharide TNO888 conjugate, adjuvant, preservative free 215 CVX created [...] 1 ACUTE RESPIRATORY FAILURE WITH HYPOXIA [address] active 2 ANEMIA, UNSPECIFIED [address] active 3 BENIGN NEOPLASM OF MENINGES, UNSPECIFIED [address] active 4 DYSPHAGIA, UNSPECIFIED [address] active 5 ENCEPHALOPATHY, UNSPECIFIED [address] active 6 MAJOR DEPRESSIVE DISORDER, SINGLE EPISODE, MILD [address] active 7 POLYNEUROPATHY, UNSPECIFIED [address] active 8 PRIMARY ADRENOCORTICAL INSUFFICIENCY [address] active 9 REPEATED FALLS [address] active 10 SUICIDAL IDEATIONS [address] active 11 PRESSURE ULCER OF SACRAL REGION, UNSTAGEABLE [address] active 12 EPILEPSY, UNSPECIFIED, NOT INTRACTABLE, WITH STATUS EPILEPTICUS [address] active 13 ACQUIRED ABSENCE OF RIGHT LEG ABOVE KNEE [address] active 14 ACUTE PYELONEPHRITIS [address] active 15 ESSENTIAL (PRIMARY) HYPERTENSION [address] active 16 HYPERLIPIDEMIA, UNSPECIFIED [address] active 17 PARAPLEGIA, UNSPECIFIED [address] active 18 PRESSURE ULCER OF OTHER SITE, STAGE 2 2 10/20/[address] completed 19 SEPSIS, UNSPECIFIED ORGANISM [address] active 20 SPINAL STENOSIS, THORACIC REGION [address] active 21 TYPE 2 DIABETES MELLITUS WITH DIABETIC NEPHROPATHY [address] active Reason for Referral No Reasons for Referral Entered Social History Social History Observation Description Start Date End Date Code Code System Current Smoking Status Tobacco smoking consumption unknown 208750248 SNOMED CT Sex Assigned At Male 1955 36337-7 [facility] Gender Identity Vital Signs Code Code System Vitals Name Values and Units Timing Information 8462-4 [facility] Blood Pressure-Diastolic Value=92 Un its=mmHg 01/25/2023 8480-6 LOINC Blood Pressure-Systolic Jlblo=893 Un its=mmHg 01/25/2023 8867-4 [facility] Heart rate Value=99.0 Units=/min 44638-2 [facility] Pain Level Value=0.0 01/25/2023 8310-5 LOINC Body Temperature Value=97.5 Units= F 01/25/2023 2339-0 LOINC Blood Sugar Wupsv=259.0 Units=mg/dL 01/19/2023 9279-1 [facility] Respiratory Rate Value=18.0 Units=/m in 01/09/2023 43507-3 [facility] O2 % BldC Oximetry Value=96.0 Units= % 01/09/2023 76186-9 [facility]INC Weight Txadm=091.8 Units=Lbs 06/2023 8302-2 LOINC Height Value=72.0 Units=Inches 05/23/2022
--- OUTSIDE RECORDS SUMMARY | 2025-03-27 14:11 | XMS_ITS | Encounter Summary ---
Author Organization [employer] ([place], [place], [place]) Address [address] [place] [address] Care Team Providers Care Boom Truck Driver Name Role Phone Unavailable Primary Care Provider Unavailabl e Encounter Details Date Type Department Care Team (Late st Contact Info) Description 12/31/2021 Transcribed Document [facility] [place] [address] [place] [address] ProviderDario MD [address] [place], [place] [phone] Social History Tobacco Use Types Packs/Day Years [...] On: 12/31/2021 8:31 EDT by Idalia Watson, Wet Process Miller Head Nutrition Assessment Nutrition Assessment Reason : Follow Up Idalia Watson, Wet Process Miller Head - 12/31/2021 8:31 EDT Current Nutrition Regimen Comment : 12/31: mod f/u. Organisational Psychologist visited pt who reported he is awaiting discharge today, per MD discharge is pending pre-cert. Pt stated he eats 50-100% of all of his meals and drinks all of his Glucerna. He also reported that he drinks the orange Gianni but does not like the fruit punch, internet developer to order. Pt was very pleasant and said he is willing to do whatever is needed to get his wounds healing. 12/26: Automatic consult d/t PU. Pt is a 66 y/o M admitted for recurrent seizure activity, s/p 19 min seizure at SNF. Neurology following, on EEG monitoring. Pt had PU at previous rehab facility but noted has been getting worse. ORTHOPEDIC MECHANIC consulted for h/o dysphagia, okay for regular/thin [...] Unstageable PU right gluteal, Stg 3 PU cleft, LLE skin tears GI: LBM 12/31, [...] PU right gluteal, Stg 3 PU cleft Nutrient Intake Status : Active Increased Nutrient Needs Comment : protein Idalia Watson, Wet Process Miller Head - 12/31/2021 14:28 EDT Nutrition Interventions Meals and Snacks : Carbohydrate-modified diet Nutrition Supplement Therapy : Commercial beverage Idalia Watson, Wet Process Miller Head - 12/31/2021 14:28 EDT Monitoring/Evaluation Energy Intake : Total energy intake Food Intake : Amount of food Protein Intake : Total protein Weight Status : Weight Maintanence Gastrointestinal Function : Bowel Function Integumentary : Pressure Ulcer Status Idalia Watson, Wet Process Miller Head - 12/31/2021 14:28 EDT Nutrition Recommendations Dietitian Recommendations : 1. Continue 60 gm diet +Glucerna BID and Gianni BID. Goal: Intakes 50% or greater 2. Monitor wt 1x/wk *internet developer to order new Goal: No significant wt loss 3. Monitor BG, adjust insulin prn Goal: 70-140 mg/dL Risk: Moderate Lori Moon, Dietitian - 12/31/2021 15:16 EDT Nutrition Care Level : Moderate Idalia Watson, Wet Process Miller Head - 12/31/2021 14:28 EDT Electronically signed by Anthony [facility] Conversion Installation And Repair Technician Cerner at 12/29/2022 4:41 PM CDT documented in this encounter Plan of Treatment Not on file documented as of this encounter Visit Diagnoses Not on filedocumented in this encounter
--- OUTSIDE RECORDS SUMMARY | 2025-03-27 14:11 | XMS_ITS | Encounter Summary ---
Author Organization [employer] ([place], [place], [place], [place]) Address [address] [place] [address] Care Team Providers Care Plant Controller Name Role Phone Unavailable Primary Care Provider Unavailabl e Encounter Details Date Type Department Care Team (Late st Contact Info) Description 01/01/2022 Transcribed Document [facility] [place] Family Medicine [facility] [place] [address] ProviderDario MD [address], [place] [phone] Social History Tobacco Use Types Packs/Day Years [...] rough night and was very aggitated. The agriculture specialist nurse and myself went in to [...] now. And I will be contacting my immigration attorney about this stay. At this point, I left the room with the signed records request, and informed my classified advertising supervisor that I will not be going [...]
--- OUTSIDE RECORDS SUMMARY | 2025-03-27 14:11 | XMS_ITS | Encounter Summary ---
Author Organization [employer] ([place], [place], [place], [place]) Address [address] [place] [address] Care Team Providers Care Pearl Glue Drier Name Role Phone Unavailable Primary Care Provider Unavailabl e Encounter Details Date Type Department Care Team (Late st Contact Info) Description 01/01/2022 Transcribed Document [facility] [place] Family Medicine [address] [place] [address] ProviderDario MD [address] [place], [place] [phone] Social History Tobacco Use Types Packs/Day Years [...]
--- OUTSIDE RECORDS SUMMARY | 2025-03-27 14:11 | XMS_ITS | Encounter Summary ---
Author Organization [employer] ([place], [place], [place], [place]) Address [address] [place] [address] Care Team Providers Care Director Of Business Systems Name Role Phone Unavailable Primary Care Provider Unavailabl e Encounter Details Date Type Department Care Team (Late st Contact Info) Description 12/31/2021 Transcribed Document [facility] [place] [address] [place] [address] ProviderDario MD [address] [place], [place] [phone] Social History Tobacco Use Types Packs/Day Years [...]
--- OUTSIDE RECORDS SUMMARY | 2025-03-27 14:11 | XMS_ITS | Encounter Summary ---
Author Organization [employer] ([place], [place], [place], [place]) Address [address] [place] [address] Care Team Providers Care Building Maintenance Superintendent Name Role Phone Unavailable Primary Care Provider Unavailabl e Encounter Details Date Type Department Care Team (Late st Contact Info) Description 01/01/2022 Transcribed Document [facility] [place] [address] [place] [address] ProviderDario MD [address] [place], [place] [address] Social History Tobacco Use Types Packs/Day Years [...]
--- OUTSIDE RECORDS SUMMARY | 2025-03-27 14:11 | XMS_ITS | Encounter Summary ---
Author Organization [employer] ([place], [place], [place], [place]) Address [address] [place] [address] Care Team Providers Care Boat Captain Name Role Phone Unavailable Primary Care Provider Unavailabl e Encounter Details Date Type Department Care Team (Late st Contact Info) Description 12/29/2021 Transcribed Document [facility] [facility] [address] [place] [address] Anali South MD [facility] [address] [address] Social History Tobacco Use Types [...] motion, waiting for placement back to full [place]. Currently wearing oxygen that he does not wear at baseline so we will attempt to wean this. Latest readings on monitor all at 100%. Patient oriented to person and time. Denies f/c/s. no soa, chest pain. no n/v/d. no abd pain. no dysuria, hematuria HPI: 66 YO male who presented to [facility] from [facility] secondary recurrent seizure activity. He is known to our practice from [facility]. Pt has hx of seizures, DM II, HTN, HLD, functional quadraplegia. It appears that pt had increased seizure activity in 10/2021 when at [facility] (or may have led to him going there). Keppra was added to lamictal at that time, then was hospitalized again at [facility] and dilantin was added to regimen. [...] recurrent seizures he was transferred here to [facility] for further work up. No records from [facility] ER were seen on pts chart. Pt says he has felt feverish. No cp, soa. Has had occ cough. Concerned about sacral/buttock wound. States that previously at [facility] it was almost healed now it is bad again. C/o pain around right parotid gland. States it was found at [facility]. States they have been swabbing his mouth with lemon juice, that helped at first but now swollen. Pt has dentures but not with him. At [facility] he was started on azithromycin and prednisone for parotid swelling. Prior hospitalizations: 11/2721-12/18/21 - [facility] - pt was unrepsonsive at [facility] and went to ER. Dc summary said seizures and DKA?. He was intubated for protection. Extubated on 12/08. He had some intermittent seizures during his stay. Dilantin was added. Seizures were stopped with Ativan. Lamictal dose was increased. EEG showed no seizure activity per D/c summary and pt returned to [facility]. He was found to have parotid swelling during this time. D/c summary also has Acute resp failure, acute renal failure, hyperkalemia and hypernatremia. 10/2021-12/01/2021 - [facility] - hip and back pain after falling [...] also of 50 mg q8h. 08/2021 - [facility] -- Right foot gangrene, s/p right [...] -12/25 - well controlled. A1c 6.4 Dysphagia -HOSPICE COORDINATOR eval -thickened liquids and pureed diet for [...]
--- OUTSIDE RECORDS SUMMARY | 2025-03-27 14:11 | XMS_ITS | Encounter Summary ---
Author Organization [employer] ([place], [place], [place], [place]) Address [address] [place] [address] Care Team Providers Care Turn Machine Operator Name Role Phone Unavailable Primary Care Provider Unavailabl e Encounter Details Date Type Department Care Team (Late st Contact Info) Description 12/31/2021 Transcribed Document [facility] Radiology [address] [place] [address] Anali South MD [address] [address] Social History Tobacco Use Types [...] Male : 1955 Associated Diagnoses: None Author: [facility] CC: recurrent seizures S: pt [...] or apply Heel Medix boots Apply Aloe [place] 3 (clear) or Sensicare 3 (white Zinc) [...] who presented to [facility] from [facility] secondary recurrent seizure activity. He is known to our practice from [facility]. Pt has hx of seizures, DM II, HTN, HLD, functional quadraplegia. It appears that pt had increased seizure activity in 10/2021 when at [facility] (or may have led to him going there). Keppra was added to lamictal at that time, then was hospitalized again at [facility] and dilantin was added to regimen. Despite med changes pt has continued to have seizures. It appears dilantin was low and provider had plans to start titration at [facility]. Pt had seizure for 19 min at [facility] yesterday and was still having seizure when transported by EMS. O2 sat was starting to drop. Previously he had had a seizure over 10 min. Do to recurrent seizures he was transferred here to [facility] for further work up. No records from [facility] ER were seen on pts chart. Pt says he has felt feverish. No cp, soa. Has had occ cough. Concerned about sacral/buttock wound. States that previously at [facility] it was almost healed now it is bad again. C/o pain around right parotid gland. States it was found at [facility]. States they have been swabbing his mouth [...] -12/25 - well controlled. A1c 6.4 Dysphagia -ADVERTISING INTERNSHIP eval -thickened liquids and pureed diet for [...]
--- OUTSIDE RECORDS SUMMARY | 2025-03-27 14:11 | XMS_ITS | Encounter Summary ---
Author Organization [employer] ([place], [place], [place], [place]) Address [address] [place] [address] Care Team Providers Care Visitor Services Information Assistant Name Role Phone Unavailable Primary Care Provider Unavailabl e Encounter Details Date Type Department Care Team (Late st Contact Info) Description 12/29/2021 Transcribed Document [facility] [place] [facility] [place] [address] ProviderDario MD [address], [place] [phone] Social History Tobacco Use Types Packs/Day Years [...] 12/29/2021 12:00 EDT by Vaishnavi Cunha V, Composite Laminator Cement Production Plant Operator Care Management Progress Note Discharge Arrangements : [...] Condition of Patient Patient Discharge Goal : snf facility Is the Patient Meeting Medical Necessity : Yes Physician Agreeable to Move Forward with D/C Plan? : Yes Did you Attend Multidisciplinary Rounds? : Yes Vaishnavi Cunha V, Composite Laminator Cement Production Plant Operator - 12/29/2021 12:00 EDT Narrative Progress Note Narrative Progress Note : Patient is medically ready for discharge. CM sent updates to [facility]. [facility] intiated insurance precert today. DCP-Transfer back to [facility] when insurance precert is approved. [facility] ambulance scheduled [facility] for 6pm om 12/30 in case insurance precert is approved. Historical Progress Note : Patient is medically ready for discharge. Cm sent updates to [facility]. CM sent message to Lisandra from [employer] asking for precert with insurance to be started as soon as possible. Cm scheduled [facility] for [facility] pm [facility]29 if bed is available and precert obtained. [facility] will need to be changed if patient is not approved to go. CM will continue to follow. CALIXTO MCCABE, Composite Laminator-Ore Crusher - 12/28/21 13:59:37 Vaishnavi Cunha V, Composite Laminator Cement Production Plant Operator - 12/29/2021 12:00 EDT documented in this encounter Plan of Treatment Not on file documented as of this encounter Visit Diagnoses Not on filedocumented in this encounter
--- OUTSIDE RECORDS SUMMARY | 2025-03-27 14:11 | XMS_ITS | Encounter Summary ---
Author Organization [employer] ([place], [place], [place], [place]) Address [address] [place] [address] Care Team Providers Care Conveyor Feeder Name Role Phone Unavailable Primary Care Provider Unavailabl e Encounter Details Date Type Department Care Team (Late st Contact Info) Description 12/24/2021 Transcribed Document [facility] [facility] [place] [address] ProviderDario MD [address] [place], [place] [id number] Social History Tobacco Use Types Packs/Day Years [...] 14:04 EDT Chief Complaint : pt from [facility], direct admit, pt has been having seizures the past 2 days, no hx, seizures have been lasting >10mins. here for neuro evaluation. Had seizure activity during triage lasting >2 min Triage Date/Time : 12/24/2021 13:49 EDT BRITTNEY TORRES RN - 12/24/2021 13:49 EDT DCP GENERIC CODE Tracking Group : [facility] Tracking Acuity : 2 - Emergent BRITTNEY [...] Allergies ; Type: Allergy ; Updated By: Alondar Hughes RN; Reviewed Date: 12/24/2021 14:01 EDT Diagnosis Control ED (As Of: 12/24/2021 14:04:45 EDT) Problems(Active) Back pain (SNOMED CT :947498748 ) Name of Problem: Back pain ; Recorder: Alondra Hughes RN; Confirmation: Confirmed ; Classification: Patient Stated ; Code: [id number] ; Contributor System: PowerChart ; Last Updated: 01/15/2016 8:18 EDT ; Life Cycle Date: 01/15/2016 ; Life Cycle Status: Active ; Vocabulary: SNOMED CT Diabetes mellitus type II (SNOMED CT :75549048 ) Name of Problem: Diabetes mellitus type II ; Recorder: Alondra Hughes RN; Confirmation: Confirmed ; Classification: Patient Stated ; Code: 44077902 ; Contributor System: PowerChart ; Last Updated: 01/15/2016 8:18 EDT ; Life Cycle Date: 01/15/2016 ; Life Cycle Status: Active ; Vocabulary: SNOMED CT Hyperlipidemia (SNOMED CT :50619758 ) Name of Problem: Hyperlipidemia ; Recorder: Alondra Hughes RN; Confirmation: Confirmed ; Classification: Patient Stated ; Code: 79711473 ; Contributor System: PowerChart ; Last Updated: 01/15/2016 8:18 EDT ; Life Cycle Date: 01/15/2016 ; Life Cycle Status: Active ; Vocabulary: SNOMED CT Hypertension (SNOMED CT :52230609 ) Name of Problem: Hypertension ; Recorder: Alondra Hughes RN; Confirmation: Confirmed ; Classification: Patient Stated ; Code: 55568648 ; Contributor System: PowerChart ; Last Updated: 01/15/2016 8:16 EDT ; Life Cycle Date: 01/15/2016 ; Life Cycle Status: Active ; Vocabulary: SNOMED CT Restless legs syndrome (SNOMED CT :63949901 ) Name of Problem: Restless legs syndrome ; Recorder: Alondra Hughes RN; Confirmation: Confirmed ; Classification: Patient Stated ; Code: 12955805 ; Contributor System: PowerChart ; Last Updated: 01/15/2016 8:18 EDT ; Life Cycle Date: 01/15/2016 ; Life Cycle Status: Active ; Vocabulary: SNOMED CT Seizure (SNOMED CT :149956237 ) Name of Problem: Seizure ; Recorder: Alondra Hughes RN; Confirmation: Confirmed ; Classification: Patient Stated ; Code: [id number] ; Contributor System: Picurio ; Last Updated: 01/15/2016 8:18 EDT ; Life Cycle Date: 01/15/2016 ; Life Cycle Status: Active ; Vocabulary: SNOMED CT Diagnoses(Active) Seizure Date: 12/24/2021 ; Diagnosis Type: Reason For Visit ; Confirmation: Complaint of ; Clinical Dx: Seizure ; Classification: Medical ; Clinical Service: Non-Specified ; Code: PNED ; Probability: 0 ; Diagnosis Code: [id number] Seizure - Recurrent Date: 12/24/2021 ; Diagnosis Type: Reason For Visit ; Confirmation: Complaint of ; Clinical Dx: Seizure - Recurrent ; Classification: Medical ; Clinical Service: Non-Specified ; Code: PNED ; Probability: 0 ; Diagnosis Code: [id number] ED Height and Weight Height Source : Stated Height Entry Format : [place] Height, Feet : 5 ft(Converted to: 152 cm, 60 Inch) Height, Inches : 10 Inch(Converted to: 0 ft 10 Inch, 25.40 cm) Clinical Height : 177.8 cm Weight Source, ED : Critical estimated dosing weight Weight Entry Format : [place] Weight, Pounds : 180 lb Clinical Dosing Weight : 81.82 kg Body Surface Area (BSA) : 2 m2 Body Mass Index : 25.9 kg/m2 (HI) [place] Body Weight (IBW) : 72.02 kg BRITTNEY TORRES RN - 12/24/2021 13:49 EDT documented in this encounter Plan of Treatment Not on file documented as of this encounter Visit Diagnoses Not on filedocumented in this encounter
--- OUTSIDE RECORDS SUMMARY | 2025-03-27 14:12 | XMS_ITS | Encounter Summary ---
Author Organization [employer] ([place], [place], [place], [place]) Address [address] [place] [address] Care Team Providers Care Setter Molding And Coremaking Machines Name Role Phone Unavailable Primary Care Provider Unavailabl e Encounter Details Date Type Department Care Team (Late st Contact Info) Description 12/26/2021 Transcribed Document [facility] Radiology [address] [place] [address] Anali South MD [address] [facility] [address] [place] [address] Social History Tobacco Use Types [...] who presented to [facility] from [facility] secondary recurrent seizure activity. He is known to our practice from [facility]. Pt has hx of seizures, DM II, HTN, HLD, functional quadraplegia. It appears that pt had increased seizure activity in 10/2021 when at [facility] (or may have led to him going there). Keppra was added to lamictal at that time, then was hospitalized again at [facility] and dilantin was added to regimen. Despite med changes pt has continued to have seizures. It appears dilantin was low and provider had plans to start titration at [facility]. Pt had seizure for 19 min at [facility] yesterday and was still having seizure [...] about sacral/buttock wound. States that previously at [facility] it was almost healed now it is bad again. C/o pain around right parotid gland. States it was found at [facility]. States they have been swabbing his mouth with lemon juice, that helped at first but now swollen. Pt has dentures but not with him. At [facility] he was started on azithromycin and prednisone for parotid swelling. Prior hospitalizations: 11/2721-12/18/21 - [facility] - pt was unrepsonsive at [facility] and went to ER. Dc summary said seizures and DKA?. He was intubated for protection. Extubated on 12/08. He had some intermittent seizures during his stay. Dilantin was added. Seizures were stopped with Ativan. Lamictal dose was increased. EEG showed no seizure activity per D/c summary and pt returned to [facility]. He was found to have parotid swelling during this time. D/c summary also has Acute resp failure, acute renal failure, hyperkalemia and hypernatremia. 10/2021-12/01/2021 - [facility] - hip and back pain after falling [...] also of 50 mg q8h. 08/2021 - [facility] -- Right foot gangrene, s/p [...] -12/25 - well controlled. A1c 6.4 Dysphagia -RODENT EXTERMINATOR eval -thickened liquids and pureed diet for [...]
--- OUTSIDE RECORDS SUMMARY | 2025-03-27 14:12 | XMS_ITS | Encounter Summary ---
Author Organization [employer] ([place], [place], [place], [place]) Address [address] [place] [address] Care Team Providers Care Spray Maker Name Role Phone Unavailable Primary Care Provider Unavailabl e Encounter Details Date Type Department Care Team (Late st Contact Info) Description 12/26/2021 Transcribed Document [facility] [place] Family Medicine [facility] [place] [address] ProviderDario MD [address] [place], [place] [id number] Social History Tobacco Use Types Packs/Day Years [...] today reveals full thickness skin loss at cleft, linear in shape with some slough to base consistent with moisture related skin damage evolution to Stage 3 pressure injury. Full thickness skin loss noted to right gluteal with 90% coverage of adherent yellow slough, consistent with an unstageable pressure injury. Patient reports wounds have been being treated at his nursing home care facility. Medihoney initiated as treatment regimen. [...]
--- OUTSIDE RECORDS SUMMARY | 2025-03-27 14:12 | XMS_ITS | Encounter Summary ---
Author Organization [employer] ([place], [place], [place], [place]) Address [address] [place] [address] Care Team Providers Care Wrist Hemmer Name Role Phone Unavailable Primary Care Provider Unavailabl e Encounter Details Date Type Department Care Team (Late st Contact Info) Description 12/26/2021 Transcribed Document [facility] [place] Medicine [facility] [place] [address] ProviderDario MD [address] [place], [place] [phone] Social History Tobacco Use Types Packs/Day Years [...] EDT Performed On: 12/26/2021 12:07 EDT by ACRMEN TRENT, Receptionist Airline Lounge Primary Insurance Authorization Authorization and Policy Numbers : Insurance 1 Health Plan: [employer] MEDICARE Policy Number: [id number] Authorization Number: Insurance Primary Name : WELL[employer] MANAGED MEDICARE Policy Number: [id number] Authorization Status-Primary : Certified in total Reference Number-Primary : [id number] Authorization Number-Primary : [id number] Number of Days Authorized-Primary : 11 Day(s) Authorized Service Begin Date-Primary : 12/24/2021 EDT Authorized Service End Date-Primary : 01/04/2022 EDT Authorization Comments-Primary : cont stay approved per fax from [facility] 12/26/21 NRD 01/05/22 Historical Authorization Comments-Primary : Comment 1: c/s clinicals faxed via [facility], auth remains under review on Archive portal (DIONNE SCHAFFER, RN-UTILIZATION MANAGEMENT REVIEW NON-EXEMPT 12/26/2021 09:20) Comment 2: Clinicals submitted on [employer] website for IP approval (JODY MUÑOZ RN 12/25/2021 08:50) CARMEN TRENT, Receptionist Airline Lounge - 12/26/2021 12:07 EDT Electronically signed by [facility] Conversion It Field Technician Cerner at 12/29/2022 4:55 PM CDT documented in this encounter Plan of Treatment Not on file documented as of this encounter Visit Diagnoses Not on filedocumented in this encounter
--- OUTSIDE RECORDS SUMMARY | 2025-03-27 14:12 | XMS_ITS | Encounter Summary ---
Author Organization [employer] ([place], [place], [place], [place]) Address [address] [place] [address] Care Team Providers Care Senior Care Manager Name Role Phone Unavailable Primary Care Provider Unavailabl e Encounter Details Date Type Department Care Team (Late st Contact Info) Description 12/25/2021 Transcribed Document [facility] [place] Family Medicine [address] [place] [address] ProviderDario MD [address], [place] [id number] Social History Tobacco Use Types Packs/Day Years [...]
--- OUTSIDE RECORDS SUMMARY | 2025-03-27 14:12 | XMS_ITS | Encounter Summary ---
Author Organization [employer] ([place], [place], [place], [place]) Address [address] [place] [address] Care Team Providers Care Tie In Machine Operator Name Role Phone Unavailable Primary Care Provider Unavailabl e Encounter Details Date Type Department Care Team (Late st Contact Info) Description 12/25/2021 Transcribed Document [facility] Radiology [address] [place] [address] Anali South MD [address] [facility] [address] [place] [address] Social History Tobacco Use Types [...] MD - 12/25/2021 11:24 AM EDT Patient: VITALY POOL Age: 66 years Sex: Male : 1955 Associated Diagnoses: None Author: INGRID ELLSWORTH PA-FAM CC: recurrent seizures S: pt is doing ok. Hooked up to EEG for evaluation. No f/c/s. NO n/v/d. NO cp, soa. Worked with HEAD CHARGER and passed. Has regular food tray. HPI: 66 YO male who presented to [facility] from [facility] secondary recurrent seizure activity. He is known to our practice from [facility]. Pt has hx of seizures, DM II, HTN, HLD, functional quadraplegia. It appears that pt had increased seizure activity in 10/2021 when at [facility] (or may have led to him going there). Keppra was added to lamictal at that time, then was hospitalized again at [facility] and dilantin was added to regimen. Despite med changes pt has continued to have seizures. It appears dilantin was low and provider had plans to start titration at [facility]. Pt had seizure for [address] [facility] yesterday and was still having seizure when transported by EMS. O2 sat was starting to drop. Previously he had had a seizure over 10 min. Do to recurrent seizures he was transferred here to [facility] for further work up. No records from [facility] ER were seen on pts chart. Pt says he has felt feverish. No cp, soa. Has had occ cough. Concerned about sacral/buttock wound. States that previously at [facility] it was almost healed now it is bad again. C/o pain around right parotid gland. States it was found at [facility]. States they have been swabbing his mouth with lemon juice, that helped at first but now swollen. Pt has dentures but not with him. At [facility] he was started on azithromycin and prednisone for parotid swelling. Prior hospitalizations: 11/2721-12/18/21 - [facility] - pt was unrepsonsive at [facility] and went to ER. Dc summary said seizures and DKA?. He was intubated for protection. Extubated on 12/08. He had some intermittent seizures during his stay. Dilantin was added. Seizures were stopped with Ativan. Lamictal dose was increased. EEG showed no seizure activity per D/c summary and pt returned to [facility]. He was found to have parotid swelling during this time. D/c summary also has Acute resp failure, acute renal failure, hyperkalemia and hypernatremia. 10/2021-12/01/2021 - [facility] - hip and back pain [...] also of 50 mg q8h. 08/2021 - [facility] -- Right foot gangrene, s/p right [...] -12/25 - well controlled. A1c 6.4 Dysphagia -HEAD CHARGER eval -thickened liquids and pureed diet for [...]
--- OUTSIDE RECORDS SUMMARY | 2025-03-27 14:12 | XMS_ITS | Encounter Summary ---
Author Organization [employer] ([place], [place], [place], [place]) Address [address] [place] [address] Care Team Providers Care Security Associate Name Role Phone Unavailable Primary Care Provider Unavailabl e Encounter Details Date Type Department Care Team (Late st Contact Info) Description 12/25/2021 Transcribed Document [facility] [place] [facility] [place] [address] ProviderDario MD [address] [place] [address] Social History Tobacco Use Types [...] Policy Numbers : Insurance 1 Health Plan: [employer] MEDICARE Policy Number: [id number] Authorization Number: Insurance Primary Name : WE[employer] MANAGED MEDICARE Policy Number: [id number] Authorization Status-Primary : Awaiting callback Reference Number-Primary : [id number] Authorized Service Begin Date-Primary : 12/24/2021 EDT Authorization Comments-Primary : Clinicals submitted on [employer] website for IP approval Historical Authorization Comments-Primary : No Authorization Comments Found JODY MUÑOZ RN - 12/25/2021 8:50 EDT documented in this encounter Plan of Treatment Not on file documented as of this encounter Visit Diagnoses Not on filedocumented in this encounter
--- OUTSIDE RECORDS SUMMARY | 2025-03-27 14:12 | XMS_ITS | Encounter Summary ---
Author Organization [employer] ([place], [place], [place], [place]) Address [address] [place] [address] Care Team Providers Care Semiautomatic Taper Operator Name Role Phone Unavailable Primary Care Provider Unavailabl e Encounter Details Date Type Department Care Team (Late st Contact Info) Description 12/26/2021 Transcribed Document [facility] [place] [facility] [place] [address] ProviderDario MD [address] [place], [place] [phone] Social History Tobacco Use Types Packs/Day Years [...] On: 12/26/2021 1:08 EDT by Brent Waller RN-Gl[place]y Advance Directive Patient has Advance Directive *Q [...] Bryson Support Person/Pt Rep Contact Information : [phone] Want Family/Rep/Phys Notified of Admit : No Emergency Contact #1 : Little Salazar Emergency Contact #1 Emergency Contact #1 Relationship : sister Emergency Contact #2 : . Emergency Contact #2 Phone Number : . Emergency Contact #2 Relationship : . Chief Complaint : pt from [facility], direct admit, pt has been having seizures the past 2 days, no hx, seizures have been lasting >10mins. here for neuro evaluation. Had seizure activity during triage lasting >2 min Information Obtained From : Patient, Other: caregiver Primary Language : Micronesian Communication Barrier : None Viscosity Worker Needed : No Brent Waller RN-Resource - [...] Level : 46 or > High Risk [place] Fall Interventions : Adequate lighting, Assistive devices [...] Source : Stated Height Entry Format : [place] Height, Feet : 5 ft(Converted to: 152 cm, 60 Inch) Height, Inches : 10 Inch(Converted to: 0 ft 10 Inch, 25.40 cm) Clinical Height : 177.8 cm Weight Source : Bed scale Weight Entry Format : [place] Clinical Dosing Weight : 81.82 kg Weight, Pounds : 180 lb Body Surface Area (BSA) : 2 m2 Body Mass Index : 25.9 kg/m2 (HI) [place] Body Weight : 72 kg Brent Waller [...] Brent Waller RN-Resource - 12/26/2021 1:08 EDT [place] Suicide Severity Rating Scale (C-SSRS) CSSRS Past [...] Valuables and Belongings : No personal items Bernt Waller RN-Resource - 12/26/2021 1:08 EDT documented in this encounter Plan of Treatment Not on file documented as of this encounter Visit Diagnoses Not on filedocumented in this encounter
--- OUTSIDE RECORDS SUMMARY | 2025-03-27 14:12 | XMS_ITS | Encounter Summary ---
Author Organization [employer] ([place], [place], [place], [place]) Address [address] [place] [address] Care Team Providers Care Professor Of Medicine Name Role Phone Unavailable Primary Care Provider Unavailabl e Encounter Details Date Type Department Care Team (Late st Contact Info) Description 12/26/2021 Transcribed Document [facility] [place] Medicine [facility] [place] [address] ProviderDario MD [address] [place], [place] [id number] Social History Tobacco Use Types Packs/Day Years [...] new issues; no further seizures since EEG supervisor air conditioning installer Objective VS/Measurements Vital Signs/Vital Measures 12/26/2021 5:30 [...] had two seizures here prior to EEG supervisor air conditioning installer; no further events on EEG. He does [...]
--- OUTSIDE RECORDS SUMMARY | 2025-03-27 14:12 | XMS_ITS | Encounter Summary ---
Author Organization [employer] ([place], [place], [place], [place]) Address [address] [place] [address] Care Team Providers Care Farm Consultant Name Role Phone Unavailable Primary Care Provider Unavailabl e Encounter Details Date Type Department Care Team (Late st Contact Info) Description 12/26/2021 Transcribed Document [facility] [place] Family Medicine [facility] [place] [address] ProviderDario MD [address], [place] [phone] Social History Tobacco Use Types Packs/Day Years [...] 12/26/2021 13:38 EDT by Vaishnavi Cunha V, Gate Clerk Inclusion Special Educator Initial Assessment I Previously Documented Living Environment [...] Listed? : Yes Medical Durable Power of Cash On Delivery Clerk Name : Little watson Legal Guardian : No Is Guardianship Needed : No Vaishnavi Cunha Social Worker [facility] - 12/26/2021 13:38 EDT Initial Assessment II Sensory and Motor Deficits : Quadriplegia Deficit Description : functional quadriplegia Current Home Treatments and Equipment : Hospital bed, Walker, Wheelchair, Other: lift Services and Community Resources : Home Health Services and Community Resources Addl Comments : [employer] Does the Patient have a Floor to SNF Benefit? : Yes Vaishnavi Cunha Social Worker [facility] - 12/26/2021 13:38 EDT Discharge Needs I Anticipated Discharge Date : 12/27/2021 EDT Anticipated Discharge To, CM : prison facility Current Home Treatment/Equipment : Current Home Treatment/Equipment No qualifying data available. Post Acute/Home Treatments : None Documentation Status Complete : Yes Vaishnavi Cunha Social Worker [facility] - 12/26/2021 13:38 EDT Discharge Needs II Professional Skilled Services : Professional Skilled Services No qualifying data available. Needs Assistance with Transportation : Yes Discharge Options Discussed with Patient : Discharge transportation, DME, Home Health, Short term rehabilitation Patient Discharge Goal : prison facility Vaishnavi Cunha Social Worker [facility] - 12/26/2021 13:38 EDT Narrative Note Narrative Note : 66 YO male who presented to [facility] from [facility] secondary recurrent seizure activity. Presently, he's at [facility] for rehab Pt has hx of seizures, DM II, HTN, HLD, functional quadraplegia. Neurology, wound care, PT/OT and speech consulted. Patient on EEG monitoring for the next 24 hours. CM met with pt. Explained role. Patient is a functional quadraplegic who's presently at [facility] for rehab. Prior to rehab, he lived alone with his 2 dogs. He has a wheelchair, hospital bed, lift and walker. He's wheelchair bound and stated that he was able to perform all of his ADL prior to rehab. He's had [facility] for [facility]. His sister, Little (Zhane) [phone] is his POA. DCP-Transfer back to [facility] via w/c van or stretcher pending bed availability and insurance precert approval. Vaishnavi Cunha Social Worker [facility] - 12/26/2021 13:38 EDT documented in this encounter Plan of Treatment Not on file documented as of this encounter Visit Diagnoses Not on filedocumented in this encounter
--- OUTSIDE RECORDS SUMMARY | 2025-03-27 14:12 | XMS_ITS | Encounter Summary ---
Author Organization [employer] ([place], [place], [place], [place]) Address [address] [place] [address] Care Team Providers Care Product Manager Financial Services Name Role Phone Unavailable Primary Care Provider Unavailabl e Encounter Details Date Type Department Care Team (Late st Contact Info) Description 12/26/2021 Transcribed Document [facility] [place] [facility] [place] [address] ProviderDario MD [address] [place], [place] [id number] Social History Tobacco Use Types Packs/Day Years [...] JERSON MCGRAW OTR/Silva - 12/31/2021 12:27 EDT Intermediate Goals, OT Grooming LTG Grid Goal #1 [...]
--- OUTSIDE RECORDS SUMMARY | 2025-03-27 14:12 | XMS_ITS | Encounter Summary ---
Author Organization [employer] ([place], [place], [place], [place]) Address [address] [place] [address] Care Team Providers Care Full Roll Inspector Name Role Phone Unavailable Primary Care Provider Unavailabl e Encounter Details Date Type Department Care Team (Late st Contact Info) Description 12/25/2021 Transcribed Document [facility] [place] Family Medicine [facility] [place] [address] ProviderDario MD [address] [place] [address] Social History Tobacco Use Types [...] On: 12/25/2021 9:36 EDT by LUKE ACKERMAN, DRAWING MACHINE OPERATOR General Information Visit Type, DRAWING MACHINE OPERATOR : Re-Evaluation Patient Orders : Speech Language Pathology Modified Barium Swallow Study -111 Start: 12/25/21 8:47:00 EDT, Routine, For Other (see special instructions), Dysphagia - INGRID [place] PA-BAMBI Admission Date : Admission Date/Time: 12/24/21 13:29:00 Medical Chart Reviewed, DRAWING MACHINE OPERATOR : Yes Personal Devices : Personal Devices No Devices Recorded Assistive Devices : Assistive Devices No Devices Recorded Active Diagnoses : 12/24/2021 12:00 Seizure 12/24/2021 12:00 Seizure - Recurrent Therapy Diagnosis, DRAWING MACHINE OPERATOR : Normal oropharyngeal function. Recommendations: 1. Regular/thin 2. Medication per RN 3. NO further evaluation/tx for oropharyngeal dysphagia indicated Previous Speech/Language Evaluations : No previous ST in EMR Previous Swallow Precautions : No previous ST in EMR Previous Cognitive Evaluations : No previous ST in EMR Diet/Intake Prior to Current Admission : Puree/nectar Diet/Intake During Current Admission : puree/nectar Intubation Comment, DRAWING MACHINE OPERATOR : n/a Vital Signs RTF : Vitals [...] 9:36 EDT General Status Patient Received Status, DRAWING MACHINE OPERATOR : Up in chair Treatment Start Time, DRAWING MACHINE OPERATOR : 12/25/2021 9:17 EDT Patient Left Status, DRAWING MACHINE OPERATOR : Up in chair Treatment End Time, DRAWING MACHINE OPERATOR : 12/25/2021 9:27 EDT Treatment Time, DRAWING MACHINE OPERATOR : 10 Minute(s) LUKE ACKERMAN SLP - [...] Oral Mechanism for Daily Living : Intact DRAWING MACHINE OPERATOR Cough : Strong Facial Appearance: : Symmetrical [...] 9:36 EDT Modified Barium Swallow Impairment Profile, DRAWING MACHINE OPERATOR Modified Barium Swallow Impairment Profile Certified : [...] - 12/25/2021 9:36 EDT Therapy Indication Assessment DRAWING MACHINE OPERATOR Indicated : No DRAWING MACHINE OPERATOR Not Indicated : At prior level of function DRAWING MACHINE OPERATOR Interdisciplinary Consultation Needs : No DRAWING MACHINE OPERATOR Rehabilitation Potential : At prior level of function LUKE ACKERMAN SLP - 12/25/2021 9:36 EDT Swallow Plan/Goals Swallow LTG Grid DRAWING MACHINE OPERATOR Criminal Justice Social Worker Goal #1 DRAWING MACHINE OPERATOR Criminal Justice Social Worker Goal #2 Swallow LTG : Safely tolerates [...] LUKE ACKERMAN SLP - 12/25/2021 9:36 EDT DRAWING MACHINE OPERATOR Education Assessment Grid 1 Diet Recommendation : Verbalizes understanding Evaluation Results : Verbalizes understanding LUKE ACKERMAN SLP - 12/25/2021 9:[address] [facility] Charges Modified Barium Swallow : 1 LUKE ACKERMAN SLP - 12/25/2021 9:36 EDT Anticipated Discharge Needs, DRAWING MACHINE OPERATOR Anticipated Discharge to : Extended Care Facility Recommend Continued Therapy at Discharge : No LUKE ACKERMAN SLP - 12/25/2021 9:36 EDT documented in this encounter Plan of Treatment Not on file documented as of this encounter Visit Diagnoses Not on filedocumented in this encounter
--- OUTSIDE RECORDS SUMMARY | 2025-03-27 14:12 | XMS_ITS | Encounter Summary ---
Author Organization [employer] ([place], [place], [place], [place]) Address [address] [place] [address] Care Team Providers Care Technology Professional Name Role Phone Unavailable Primary Care Provider Unavailabl e Encounter Details Date Type Department Care Team (Late st Contact Info) Description 12/25/2021 Transcribed Document [facility] [place] [facility] [place] [address] ProviderDario MD [address], [place] [id number] Social History Tobacco Use Types Packs/Day Years Used Date Smoking Tobacco: Never Assessed Sex and Gender Information Value Date Recorded Sex Assigned at Not on file Legal Sex Male 5:38 PM CDT Gender Identity Not on file Sexual Orientation Not on file documented as of this encounter Miscellaneous Notes * Cerner Conversion Note - Historical ProviderMD - 12/25/2021 9:41 AM CDT STUDIO ARTIST Therapy Screen Entered On: 12/25/2021 9:42 EDT Performed On: 12/25/2021 9:41 EDT by LUKE ACKERMAN SLP Therapy Screen Medical Chart Reviewed, STUDIO ARTIST : Yes Information Obtained From, STUDIO ARTIST : Patient Therapy Screen Completed, STUDIO ARTIST : Yes Recommendations for Evaluation STUDIO ARTIST : None Therapy Screen Comment, STUDIO ARTIST : Pt admitted w/ seizures. No overt communication/cognitive deficits appreciated at bedside. No further communication evaluation indicated. LUKE ACKERMAN SLP - 12/25/2021 9:41 EDT Electronically signed by Anthony [facility] Conversion Electronics Engineering Technologist Cerner at 12/29/2022 4:45 PM CDT documented in this encounter Plan of Treatment Not on file documented as of this encounter Visit Diagnoses Not on filedocumented in this encounter
--- OUTSIDE RECORDS SUMMARY | 2025-03-27 14:12 | XMS_ITS | Clinical Summary ---
Author Organization [employer] ([place], [place], [place], [place]) Address [address] [place] [address] Care Team Providers Care Spiral Gear Generator Name Role Phone Unavailable Primary Care Provider Unavailabl e Encounters Date Type Department Care Team Description 01/23/2025 Orders Only [facility] [address] [place] [address] Gustavo Leggett MD from Last [...] - 01/27/2025 4:07 PM EDT Performed at: [address] [place] [address] [id number] Ceramic Engineering Professor: Michael Roland PhD, Phone: [phone] Gustavo Leggett MD PATHOLOGY/CYTOLOGY ORDERABLE S Final Result Performing Organization Address [facility] de Phone Number [facility] * (ABNORMAL) [...] - 01/27/2025 4:07 PM EDT Performed at: [address] [place] [address] [id number] Ceramic Engineering Professor: Michael Roland PhD, Phone: [phone] Gustavo Leggett MD PATHOLOGY/CYTOLOGY ORDERABLE S Final Result Performing Organization Address [facility] de Phone Number [facility] * (ABNORMAL) URINE CULTURE, ROUTINE (01/23/2025 4:40 PM EDT) Pathologist [facility] Urine Culture, Routine Final report(A) [facility] 01/23/2025 4:40 PM EDT 01/23/2025 Comment:UR Narrative [facility] - 01/27/2025 4:07 PM EDT Performed at: [address] [place] [address] [id number] Ceramic Engineering Professor: Michael Roland PhD, Phone: [phone] Gustavo Leggett MD MICROBIOLOGY - GENERAL ORDER SEB Final Result Performing Organization Address [facility] de Phone Number [facility] * (ABNORMAL) Urinalysis w/Microscopic (01/23/2025 4:40 PM EDT) Pathologist [facility] Specific [place], UA 1.019 1.005 - 1.030 [facility] pH, [...] - 01/27/2025 4:07 PM EDT Performed at: [address] [place] [address] [id number] Ceramic Engineering Professor: Michael Roland PhD, Phone: [phone] Resulting Agency Comment SRC:UR Gustavo Leggett MD URINE ORDERABLES Final Resul t Performing Organization Address City/[facility] Co de Phone Number [facility] from Last 3 Months
--- OUTSIDE RECORDS SUMMARY | 2025-03-27 14:12 | XMS_ITS | Encounter Summary ---
Author Organization [employer] ([place], [place], [place], [place]) Address [address] [place] [address] Care Team Providers Care Toe Laster Name Role Phone Unavailable Primary Care Provider Unavailabl e Encounter Details Date Type Department Care Team (Late st Contact Info) Description 12/25/2021 Transcribed Document [facility] [place] [facility] [place] [address] ProviderDario MD [address] [place], [place] [id number] Social History Tobacco Use Types Packs/Day Years [...] 67 mmHg Heart Rate Monitored 104 bpm NM 12/25/2021 5:51 EDT Temperature, Fahrenheit 97.6 Deg [...]
--- OUTSIDE RECORDS SUMMARY | 2025-03-27 14:12 | XMS_ITS | Encounter Summary ---
Author Organization [employer] ([place], [place], [place], [place]) Address [address] [place] [address] Care Team Providers Care Director Mortgage Name Role Phone Unavailable Primary Care Provider Unavailabl e Encounter Details Date Type Department Care Team (Late st Contact Info) Description 01/02/2022 Transcribed Document [facility] [place] [facility] [place] [facility] [place] [address] ProviderDario MD [address] [place], [place] [phone] Social History Tobacco Use Types Packs/Day Years [...] On: 01/02/2022 10:53 EDT by Danica Hsu, Plate Mounter Primary Insurance Authorization Authorization and Policy Numbers : Insurance 1 Health Plan: [employer] MANAGED MEDICARE Policy Number: [id number] Authorization Number: Insurance Primary Name : [facility] MANAGED MEDICARE Policy Number: [id number] Authorization Status-Primary : Approved Auth/Referral Contact Name-Primary : [place] Reference Number-Primary : [id number] Authorization Number-Primary : [id number] Number of Days Authorized-Primary : 11 Day(s) Authorized Service Begin Date-Primary : 12/24/2021 EDT Authorized Service End Date-Primary : 01/04/2022 EDT Authorization Comments-Primary : Discharge summary faxed. Historical Authorization Comments-Primary : Comment 1: c/s clinicals faxed via [facility] 12/27-12/31 (DIONNE SCHAFFER, JESSEE-UTILIZATION MANAGEMENT REVIEW NON-EXEMPT 12/31/2021 13:58) Comment 2: cont stay approved per fax from [facility] 12/26/21 NRD 01/05/22 (CARMEN TRENT, Anesthesiology Physician Assistant 12/26/2021 12:07) Comment 3: c/s clinicals faxed via [facility], auth remains under review on [facility] portal (DIONNE SCHAFFER RN-UTILIZATION MANAGEMENT REVIEW NON-EXEMPT 12/26/2021 09:20) Comment 4: Clinicals submitted on [facility] website for IP approval (JODY MUÑOZ RN 12/25/2021 08:50) Danica Hsu, Plate Mounter - 01/02/2022 10:53 EDT documented in this encounter Plan of Treatment Not on file documented as of this encounter Visit Diagnoses Not on filedocumented in this encounter
--- OUTSIDE RECORDS SUMMARY | 2025-03-27 14:12 | XMS_ITS | Encounter Summary ---
Author Organization [employer] ([place], [place], [place], [place]) Address [address] [place] [address] Care Team Providers Care Movie Critic Name Role Phone Unavailable Primary Care Provider Unavailabl e Encounter Details Date Type Department Care Team (Late st Contact Info) Description 12/25/2021 Transcribed Document [facility] [place] Medicine [address] [place] [address] ProviderDario MD [address] [place], [place] [phone] Social History Tobacco Use Types Packs/Day Years [...] On: 12/25/2021 10:38 EDT by Stephanie Vasquez R.EEGBernadineT Neurodiagnostics Event Note Neurodiagnostic Event Location : Assigned room Neurodiagnostic Event Details : Procedure completed Stephanie Vasquez R.EEG.T - 12/25/2021 10:38 EDT documented in this encounter Plan of Treatment Not on file documented as of this encounter Visit Diagnoses Not on filedocumented in this encounter
--- OUTSIDE RECORDS SUMMARY | 2025-03-27 14:12 | XMS_ITS | Encounter Summary ---
Author Organization [employer] ([place], [place], [place], [place]) Address [address] [place] [address] Care Team Providers Care Community Health Outreach Worker Name Role Phone Unavailable Primary Care Provider Unavailabl e Encounter Details Date Type Department Care Team (Late st Contact Info) Description 01/23/2025 Orders Only [facility] - [facility] [address] [place] [address] Gustavo Leggett MD [address] [place] [address] Social History Tobacco Use Types Packs/Day Years [...] - 01/27/2025 4:07 PM EDT Performed at: [address] [place] [address] [id number] Records Management Associate: Michael Roland PhD, Phone: [phone] Gustavo Leggett MD PATHOLOGY/CYTOLOGY ORDERABLE S Final Result Performing Organization Address [facility] de Phone Number [facility] * (ABNORMAL) URINE CULTURE, ROUTINE (01/23/2025 4:40 PM EDT) Urine Culture, Routine Final report(A) [facility] 01/23/2025 4:40 PM EDT 01/23/2025 Comment:UR Narrative [facility] - 01/27/2025 4:07 PM EDT Performed at: [address] [place] [address] [id number] Records Management Associate: Michael Roland PhD, Phone: [phone] Gustavo Leggett MD MICROBIOLOGY - GENERAL ORDER SEB Final Result Performing Organization Address [facility] de Phone Number [facility] * (ABNORMAL) [...] - 01/27/2025 4:07 PM EDT Performed at: [address] [place] [address] [id number] Records Management Associate: Michael Roland PhD, Phone: [phone] us Gustavo Leggett MD PATHOLOGY/CYTOLOGY ORDERABLE S Final Result [facility] * (ABNORMAL) Urinalysis w/Microscopic (01/23/2025 4:40 PM EDT) Specific [place], UA 1.019 1.005 - 1.030 [facility] pH, [...] - 01/27/2025 4:07 PM EDT Performed at: [address] [id number] Records Management Associate: Michael Roland PhD, Phone: [phone] Resulting Agency Comment SRC:UR us Gustavo Leggett MD URINE ORDERABLES Final Resul t [facility] documented in this encounter Visit Diagnoses Not on filedocumented in this encounter
--- OUTSIDE RECORDS SUMMARY | 2025-03-27 14:12 | XMS_ITS | Encounter Summary ---
Author Organization [employer] ([place], [place], [place], [place]) Address [address] [place] [address] Care Team Providers Care Tub Operator Name Role Phone Unavailable Primary Care Provider Unavailabl e Encounter Details Date Type Department Care Team (Late st Contact Info) Description 12/26/2021 Transcribed Document [facility] [place] Family Medicine [facility] [place] [address] ProviderDario MD [address] [place], [place] [phone] Social History Tobacco Use Types Packs/Day Years [...] 13:29 Assisted by, PT : Physical Therapist, senior technical trainer/aide Personal Devices : Personal Devices No Devices [...] THEO GARCIA, PT - 12/29/2021 16:47 EDT Wafer Batter Mixer Goals Mobility/Bed Mobility LTG PT Grid Goal [...] Anticipated Discharge to : Unit, rehabilitation, Unit, intermediate Recommend Continued Therapy at Discharge : Yes RICHARD VASQUEZ PT Student - 12/29/2021 16:37 EDT [place] PT Charges PT Therap. Exercise 15 min : 1 PT Ther Activities Ea 15 Min : 1 RICHARD VASQUEZ PT Student - 12/29/2021 16:37 EDT Electronically signed by Anthony, [facility] Conversion Tractor Distributor Cerner at 01/03/2023 2:01 PM CDT documented in this encounter Plan of Treatment Not on file documented as of this encounter Visit Diagnoses Not on filedocumented in this encounter
--- OUTSIDE RECORDS SUMMARY | 2025-03-27 14:13 | XMS_ITS | Referral Summary ---
Author Organization [employer] ([place], [place], [place], [place]) Address [address] [place] [address] Care Team Providers Care Ship Loader Name Role Phone Unavailable Primary Care Provider Unavailabl e Encounters Date Type Department Care Team Description 01/23/2025 Orders Only [facility] - [facility] [address] [place] [address] Gustavo Leggett MD from Last [...] - 01/27/2025 4:07 PM EDT Performed at: [address] [place] [address] [id number] Cheese Cook: Micahel Roland PhD, Phone: [phone] Gustavo Leggett MD PATHOLOGY/CYTOLOGY ORDERABLE S Final Result Performing Organization Address [facility] de Phone Number [facility] * (ABNORMAL) MICROSCOPIC EXAMINATION (01/23/2025 4:40 PM EDT) WBC >30(A) 0 - 5 /hpf [facility] RBC >30(A) 0 - 2 /hpf [facility] Epithelial Cells (non renal) None seen 0 - 10 /hpf [facility] Casts None seen None seen /lpf [facility] Bacteria Many(A) None seen/Few [facility] 01/23/2025 4:40 PM EDT 01/23/2025 Narrative [facility] - 01/27/2025 4:07 PM EDT Performed at: [address] [place] [address] [id number] Cheese Cook: Michael Roland PhD, Phone: [phone] Gustavo Leggett MD PATHOLOGY/CYTOLOGY ORDERABLE S Final Result Performing Organization Address [facility] de Phone Number [facility] * (ABNORMAL) URINE CULTURE, ROUTINE (01/23/2025 4:40 PM EDT) Pathologist [facility] Urine Culture, Routine Final report(A) [facility] 01/23/2025 4:40 PM EDT 01/23/2025 Comment:UR Narrative [facility] - 01/27/2025 4:07 PM EDT Performed at: [address] [place] [address] [id number] Cheese Cook: Michael Roland PhD, Phone: [phone] Gustavo Leggett MD MICROBIOLOGY - GENERAL ORDER SEB Final Result Performing Organization Address [facility] de Phone Number [facility] * (ABNORMAL) Urinalysis w/Microscopic (01/23/2025 4:40 PM EDT) Pathologist [facility] Specific [place], UA 1.019 1.005 - 1.030 [facility] pH, [...] - 01/27/2025 4:07 PM EDT Performed at: [address] [place] [address] [id number] Cheese Cook: Michael Roland PhD, Phone: [phone] Resulting Agency Comment SRC:UR Gustavo Leggett MD URINE ORDERABLES Final Resul t Performing Organization Address City/[facility] Co de Phone Number [facility] from Last 3 Months
--- OUTSIDE RECORDS SUMMARY | 2025-03-27 14:13 | XMS_ITS | Encounter Summary ---
Author Organization [employer] ([place], [place], [place], [place]) Address [address] [place] [address] Care Team Providers Care Director Global Sales Name Role Phone Unavailable Primary Care Provider Unavailabl e Encounter Details Date Type Department Care Team (Late st Contact Info) Description 12/27/2021 Transcribed Document [facility] Radiology [address] [place] [address] Robert South MD [address] [facility] [address] [place] [address] Social History Tobacco Use Types [...] HPI: 66 YO male who presented to [facility] from [facility] secondary recurrent seizure activity. He is known to our practice from [facility]. Pt has hx of seizures, DM II, HTN, HLD, functional quadraplegia. It appears that pt had increased seizure activity in 10/2021 when at [facility] (or may have led to him going there). Keppra was added to lamictal at that time, then was hospitalized again at [facility] and dilantin was added to [...] recurrent seizures he was transferred here to [facility] for further work up. No records from [facility] ER were seen on pts chart. Pt says he has felt feverish. No cp, soa. Has had occ cough. Concerned about sacral/buttock wound. States that previously at [facility] it was almost healed now it is bad again. C/o pain around right parotid gland. States it was found at [facility]. States they have been swabbing his mouth with lemon juice, that helped at first but now swollen. Pt has dentures but not with him. At [facility] he was started on azithromycin and prednisone for parotid swelling. Prior hospitalizations: 11/2721-12/18/21 - [facility] - [facility] [...] also of 50 mg q8h. 08/2021 - [facility] -- Right foot gangrene, s/p right [...] EEG electrodes applied, pleasant cooperative bs cta [id number] abd soft, nt no leg swelling Data: [...] -12/25 - well controlled. A1c 6.4 Dysphagia -SINGLE FOLD MACHINE OPERATOR eval -thickened liquids and pureed diet for [...]
--- OUTSIDE RECORDS SUMMARY | 2025-03-27 14:13 | XMS_ITS | Encounter Summary ---
Author Organization [employer] ([place], [place], [place], [place]) Address [address] [place] [address] Care Team Providers Care Heel Burnisher Name Role Phone Unavailable Primary Care Provider Unavailabl e Encounter Details Date Type Department Care Team (Late st Contact Info) Description 12/26/2021 Transcribed Document [facility] [place] [facility] [place] [address] ProviderDario MD [address] [place] [address] Social History Tobacco Use Types [...] facility but noted has been getting worse. NUCLEAR MONITORING TECHNICIAN consulted for h/o dysphagia, okay for regular/thin [...] right gluteal, Stg 3 PU jarod cleft GI: LBM 12/25, +BS Diet: 60 [...] Nutrient Needs Comment : protein Cinthia De La Cruz Non Emp Student [...] Recommendations : 1. Continue 60 gm diet. consultant intern to send Glucerna BID and Gianni BID. [...]
--- OUTSIDE RECORDS SUMMARY | 2025-03-27 14:13 | XMS_ITS | Clinical Summary ---
Author Organization [facility] Address [address] [place] [address] Phone Care Team Providers Care Retail Leader Name Role Phone Mckenna MURILLO, Britton Clifford [phone] [ ] Conditions or Problems Problem Name Problem Code Onset Date Status Entry Date Provider Comment Standard Description Annotate DM Non-pressure chronic ulcer of left heel, black/dry (document depth) 969562377 (SNOMED CT) 09/19 Active 09/19 Crys Alfredo Chronic ulcer of foot Infection, local skin/subcuta neous tissue 882068164 (SNOMED CT) 09/19 Active 09/19 Crys Alfredo Localized infection of skin AND/OR subcutaneous tissue Gangrene with DM II PVD 61177631 (SNOMED CT) 09/19 Active 09/19 Crys Alfredo Type 2 diabetes mellitus DM II with diabetic PVD 312195096 (SNOMED CT) Active Crys Alfredo Peripheral vascular disease Diabetes mellitus, type II with peripheral vascular disorder, with gangrene 052821992 (SNOMED CT) Resolved Crys Alfredo Peripheral circulatory disorder due to type 2 diabetes mellitus Presence of ambrose catheter 401265431 (SNOMED CT) Resolved Crys Alfredo Urinary catheter in situ Benign Essential Hypertension 72777710 (SNOMED CT) Active Crys Alfredo Benign hypertension DM II with diabetic polyneuropat hy E11.42 (ICD-10-CM) Active Crys Alfredo Type 2 diabetes mellitus with diabetic polyneuropathy Other obesity due to excess calories 818346182 (SNOMED CT) Active Myranda Zelaya Simple obesity Presence of ambrose catheter 174148677 (SNOMED CT) Removed Bibi Edelen Urinary catheter in situ Pressure ulcer of left buttock, stage 1 64352853428 332726 (SNOMED CT) Active Bibi Edelen Pressure injury of buttock stage I Pressure ulcer of right buttock, stage 1 93012334639 107 (SNOMED CT) Active Bibi Edelen Pressure injury of right buttock stage I Cellulitis of left lower limb 022057253 (SNOMED CT) Active Bibi Edelen Cellulitis of leg, excluding foot Diabetes mellitus, type II with peripheral vascular disorder, with gangrene 360610179 (SNOMED CT) Removed Bibi Edelen Peripheral circulatory disorder due to type 2 diabetes mellitus Hx of DVT 774936621 (SNOMED CT) Active Bibi Edelen History of deep vein thrombosis Amputation of right leg above knee 310520999 (SNOMED CT) Active Bibi Edelen Amputated above knee Diabetes mellitus, type II with peripheral vascular disorder, without gangrene 564194958 (SNOMED CT) Inactive Bibi Edelen Peripheral circulatory disorder due to type 2 diabetes mellitus Diabetes mellitus, type II with peripheral neuropathy 55587845297 07 (SNOMED CT) Inactive Bibi Edelen Peripheral neuropathy due to type 2 diabetes mellitus Hypertension 57197438 (SNOMED CT) Inactive Bibi Edelen Hypertensive disorder Medications Medication Instructions Start Date Stop Date Generic Name NDC Provider DOXYCYCLINE HYCLATE 100 MG CAPS Take 1 capsule by mouth 2 (Two) Times a Day for 10 days. doxycycline hyclate 72069051960 QIE qieuser AMOXICILLIN-POT CLAVULANATE 875-125 MG TABS 1 {tbl} Oral amoxicillin-pot clavulanate 13737896103 QIE qieuser ATORVASTATIN CALCIUM 40 MG TABS Take 2 tablet by mouth every night atorvastatin 44737531616 Daria Minor METFORMIN HCL 500 MG TABS Take 2 tablet by mouth twice a day metformin 88880036422 Daria Minor CLOPIDOGREL BISULFATE 75 MG TABS Take 1 tablet by mouth once a day clopidogrel 07624231277 Daria Minor PEG 3350 17 GM PACK Take 17 gram by mouth once a day as needed polyethylene glycol 3350 57372884965 Daria Minor LAMOTRIGINE 100 MG TABS Take 1 tablet by mouth every morning lamotrigine 21523028714 Daria Minor FINASTERIDE 5 MG TABS Take 1 tablet by mouth once a day finasteride 87527403775 Daria Minor DOCUSATE SODIUM 250 MG CAPS Take 1 capsule by mouth twice a day docusate sodium 66320231729 Daria Minor ASPIRIN 81 MG TBEC Take 1 tablet by mouth once a day aspirin 79686150826 Daria Minor FUROSEMIDE 40 MG TABS Take 1 tablet by mouth once a day furosemide 34104080092 Daria Minor Thera M Plus (ferrous fumarat) 9 mg iron-400 mcg tablet Take 1 tablet by mouth once a day kmtypwin-sxcd-b b-pysqlpp-pjkd 10114875915 Daria Minor FERROUS SULFATE 325 (65 Fe) MG TABS Take 1 tablet by mouth every morning ferrous sulfate 91325910145 Daria Minor LAMOTRIGINE 25 MG TABS Take 10 tablet by mouth every night lamotrigine 39890208389 Daria Minor BACLOFEN 20 MG TABS Take 1 tablet by mouth as needed baclofen 10360643273 Daria Minor TAMSULOSIN HCL 0.4 MG CAPS Take 2 capsule by mouth once a day tamsulosin 39148046783 Daria Minor DIAZEPAM 2 MG TABS Take 1 tablet by mouth twice a day as needed diazepam 66178700404 Daria Minor LOSARTAN POTASSIUM 50 MG TABS Take 1 tablet by mouth once a day losartan 80793711614 Daria Minor BUSPIRONE HCL 5 MG TABS Take 1 tablet by mouth three times a day buspirone 61823567539 Daria Minor METOPROLOL SUCCINATE ER 25 MG GQ47R-GSF Take 1 tablet by mouth once a day metoprolol succinate 15198273418 Daria Minor ubrogepant Take 1 tablet by mouth once a day as needed UBRELVY Daria Minor GLIPIZIDE 5 MG TABS Take 1 tablet by mouth twice a day glipizide 06781322437 Daria Minor ubrogepant Take 1 tablet by mouth Daily As Needed. UBRELVY QIE qieuser TAMSULOSIN HCL 0.4 MG CAPS Take 2 capsules by mouth Daily. tamsulosin 90851429680 QIE qieuser PEG 3350 17 GM PACK Take 17 g by mouth Daily As Needed. polyethylene glycol 3350 10612038776 QIE qieuser Thera M Plus (ferrous fumarat) 9 mg iron-400 mcg tablet Take 1 tablet by mouth Daily. kavaplfh-fgnf-h t-equffxy-lpmc 37606091583 QIE qieuser METOPROLOL SUCCINATE ER 25 MG AJ07D-BOS Take 1 tablet by mouth Daily. metoprolol succinate 10715997707 QIE qieuser METFORMIN HCL 500 MG TABS Take 2 tablets by mouth 2 (Two) Times a Day With Meals. metformin 41773939232 QIE qieuser LOSARTAN POTASSIUM 50 MG TABS Take 1 tablet by mouth Daily. losartan 90960075355 QIE qieuser LAMOTRIGINE 25 MG TABS Take 10 tablets by mouth Every Night. lamotrigine 24743482427 QIE qieuser LAMOTRIGINE 100 MG TABS Take 1 tablet by mouth Every Morning. lamotrigine 42658836527 QIE qieuser GLIPIZIDE 5 MG TABS Take 1 tablet by mouth 2 (Two) Times a Day Before Meals. glipizide 77585613098 QIE qieuser FUROSEMIDE 40 MG TABS Take 1 tablet by mouth Daily. furosemide 23292435679 QIE qieuser FINASTERIDE 5 MG TABS Take 1 tablet by mouth Daily. finasteride 81056634781 QIE qieuser FERROUS SULFATE 325 (65 Fe) MG TABS Take 1 tablet by mouth Daily With Breakfast. ferrous sulfate 49557552611 QIE qieuser DOXYCYCLINE HYCLATE 100 MG CAPS Take 1 capsule by mouth 2 (Two) Times a Day for 7 days. doxycycline hyclate 89295896687 QIE qieuser DOCUSATE SODIUM 250 MG CAPS Take 1 capsule by mouth 2 (Two) Times a Day. docusate sodium 34923580921 QIE qieuser DIAZEPAM 2 MG TABS Take 1 tablet by mouth 2 (Two) Times a Day As Needed for Anxiety. diazepam 24589223692 QIE qieuser CLOPIDOGREL BISULFATE 75 MG TABS Take 1 tablet by mouth Daily. clopidogrel 93016562363 QIE qieuser BUSPIRONE HCL 5 MG TABS Take 1 tablet by mouth 3 (Three) Times a Day. buspirone 01356805547 QIE qieuser BACLOFEN 20 MG TABS Take 1 tablet by mouth As Needed for Muscle Spasms. baclofen 96199172194 QIE qieuser ATORVASTATIN CALCIUM 40 MG TABS Take 2 tablets by mouth Every Night. atorvastatin 62546330690 QIE qieuser ASPIRIN 81 MG TBEC Take 1 tablet by mouth Daily. OTC aspirin 05997006240 QIE qieuser AMOXICILLIN-POT CLAVULANATE 875-125 MG TABS Take 1 tablet by mouth 2 (Two) Times a Day for 7 days. amoxicillin-pot clavulanate 32186910024 QIE qieuser Medications Administered No information available. [...]
--- OUTSIDE RECORDS SUMMARY | 2025-03-27 14:13 | XMS_ITS | Data Portability ---
Author Organization MICHELLE Constantine [facility] - [facility] NICHOLAS Juarez ADMIN Address [address] [place] [id number] Assessment No assessment recorded. Plan of Treatment [...] Organization Details Recorded Time Wound of skin 427278402 Active 2023 Tessie Blakely addie, MICHELLE - [facility] - [facility] [place] 4 16:15:45 Localized infection of skin AND/OR subcutaneous tissue 185300389 Active 2023 Tessie Blakely addie, MICHELLE - [facility] - [facility] [place] 4 16:15:59 Acute kidney injury 83422721 Active 2023 Tessiejuany Blakely addie, MICHELLE - [facility] - [place] & [place] 4 16:16:19 Type 2 diabetes mellitus 54047962 Active 2023 Tessie Reddy real, MICHELLE - [facility] - [facility] [place] 4 16:16:31 Hyperlipidemia 18361619 Active 2023 Tessiejuany Blakely addie, MICHELLE - [facility] - [place] & [place] 4 16:16:45 Amputated right lower limb above knee 610356986 Active 2023 Tessie real, MICHELLE - [facility] - [facility] & [place] 4 16:17:00 Peripheral vascular disease 405314718 Active 2023 MICHELLE Sheth [facility] & [place] 4 16:17:21 Coronary arterioscleros is 25656581 Active 2023 MICHELLE Sheth [facility] & [place] 4 16:17:46 History of migraine 102200616 Active 2023 MICHELLE Sheth [facility] & [place] 4 16:18:17 Problem Notes None recorded. Medical [...] /min 98 % 98 % 96.7 [degF] 503872. 91 g 125/54 mm[Hg] Tessie MARTINEZ - [facility] - [place] & [place] 10:06:39 Social History None recorded. Functional Status None recorded. Mental Status None recorded. Family History Nothing Reported. Medical History No medical history recorded. Past Encounters Encounter ID Performer Location Encounter Start Date Encounter Closed Date Diagnosis/Indication Diagnosis SNOMED-CT Code Diagnosis ICD10 Code Diagnosis Note [id number] Radha Zamorano-Wheeling in, RESPITE CARE PROVIDER [facility] Infectiou s Disease -[address] [place] [address] 08/25/2024 09:56:17 08/25/2024 12:23:58 Cellulitis of left lower limb 4291817019 0882150 L03.116 It is my recommenda tion that the patient be admitted at [facility] via EMS. He will likely need an amputation to resolve this infection. He is not agreeable to this. At the least he will need IV antibiotic s and is unable to do this outpatient because of transporta tion issues. He was treated at [facility] and his surgery was performed by Dr. Faust. All questions answered. This plan was also discussed in detail with Dr. Jaspreet Oneal. Bacterial infection caused by Klebsiella pneumoniae 907700800 B96.1 see above Infection caused by Pseudomonas aeruginosa 05355788 B96.5 see above History of amputation of left foot 9885165492 2322851 Z89.432 s/p left TMA. History of amputation of right lower limb 1691066494 29392 Z89.9 see above Health Concerns Section Related Observation LastModified by Organization Detai ls LastModified Time None Recorded Concern Status LastModified by Organization Details LastModified Time None Recorded Advance Directives Directive None Recorded Payers Insurance Date Sequence Insurance Name Policy Number Policy Person Covered Member ID Person Member ID Guarantor Name 08/29/2024 1 [employer] (MEDICARE REPLACEMENT/ ADVANTAGE - PPO) Vitaly Pool [id number] Vitaly Pool 08/29/2024 1 [employer] [place] (H[place] Vitaly Pool [id number] Vitaly Pool 09/18/2021 1 [employer] [place] Vitaly Pool [id number] Vitaly Pool Notes Date Note Type Note Provider Name and Address Organization Details Recorded Time 08/25/2024 text/html patient presents to clinic for referral for left lower extremity cellulitis s/p left TMA. Patient was seen by [facility] podiatry clinic and surgery was performed by Dr. Faust at [facility]. Patient has taken multiple antibiotics with [...] and pseudomonas aeruginosa. Radha De La Fuente, RESPITE CARE PROVIDER [address], [place], [address], [place] - [facility] - [place] & [place] 08/25/2024 11:23:29
--- OUTSIDE RECORDS SUMMARY | 2025-03-27 14:13 | XMS_ITS | Encounter Summary ---
Author Organization [employer] ([place], [place], [place], [place]) Address [address] [place] [address] Care Team Providers Care Rubbish Collection Supervisor Name Role Phone Unavailable Primary Care Provider Unavailabl e Encounter Details Date Type Department Care Team (Late st Contact Info) Description 12/30/2021 Transcribed Document [facility] Radiology [address] [place] [address] Anali South MD [address] [facility] [address] [place] [address] Social History Tobacco Use Types [...] or apply Heel Medix boots Apply Aloe [place] 3 (clear) or Sensicare 3 (white Zinc) [...] HPI: 66 YO male who presented to [facility] from [facility] secondary recurrent seizure activity. He is known to our practice from [facility]. Pt has hx of seizures, DM II, HTN, HLD, functional quadraplegia. It appears that pt had increased seizure activity in 10/2021 when at [facility] (or may have led to him going there). Keppra was added to lamictal at that time, then was hospitalized again at [facility] and dilantin was added to regimen. Despite med changes pt has continued to have seizures. It appears dilantin was low and provider had plans to start titration at [facility]. Pt had seizure for 19 min at [facility] yesterday and was still having seizure when transported by EMS. O2 sat was starting to drop. Previously he had had a seizure over 10 min. Do to recurrent seizures he was transferred here to [facility] for further work up. No records from [facility] ER were seen on pts chart. Pt says he has felt feverish. No cp, soa. Has had occ cough. Concerned about sacral/buttock wound. States that previously at [facility] it was almost healed now it is bad again. C/o pain around right parotid gland. States it was found at [facility]. States they have been swabbing his mouth with lemon juice, that helped at first but now swollen. Pt has dentures but not with him. At [facility] he was started on azithromycin and [...] and drinking well. Ready to d/c to [facility]. PE: Vitals Signs (last 24 hrs) Last [...] -12/25 - well controlled. 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
--- OUTSIDE RECORDS SUMMARY | 2025-03-27 14:13 | XMS_ITS | Encounter Summary ---
Author Organization [employer] ([place], [place], [place], [place]) Address [address] [place] [address] Care Team Providers Care Geodetic Technician Name Role Phone Unavailable Primary Care Provider Unavailabl e Encounter Details Date Type Department Care Team (Late st Contact Info) Description 12/26/[address] [facility] Family Medicine [facility] [place] [address] ProviderDario MD [address], [place] [id number] Social History Tobacco Use Types Packs/Day Years [...] EEG-video monitoring was performed using the 32-channel Dobleas monitoring system. The seizure detection computer was [...] noted, suggestive of mild diffuse cerebral dysfunction. /[id number] MD TERRENCE Dong/ALECIA / TAF / MODL /[id number] documented in this encounter Plan of Treatment Not on file documented as of this encounter Visit Diagnoses Not on filedocumented in this encounter
--- OUTSIDE RECORDS SUMMARY | 2025-03-27 14:13 | XMS_ITS | Encounter Summary ---
Author Organization [employer] ([place], [place], [place], [place]) Address [address] [place] [address] Care Team Providers Care Analyzer Sales Name Role Phone Unavailable Primary Care Provider Unavailkatharine e Encounter Details Date Type Department Care Team (Late st Contact Info) Description 12/30/2021 Transcribed Document [facility] [address] [place] [address] ProviderDario MD [address], [place] [id number] Social History Tobacco Use Types Packs/Day Years Used Date Smoking Tobacco: Never Assessed Sex and Gender Information Value Date Recorded Sex Assigned at Not on file Legal Sex Male 5:38 PM CDT Gender Identity Not on file Sexual Orientation Not on file documented as of this encounter Miscellaneous Notes * Cerner Conversion Note - Historical ProviderMD - 12/30/2021 2:00 AM CDT Line Repairer Tower Details Entered On: 12/30/2021 2:14 EDT Performed [...]
--- OUTSIDE RECORDS SUMMARY | 2025-03-27 14:13 | XMS_ITS | Encounter Summary ---
Author Organization [employer] ([place], [place], [place], [place]) Address [address] [place] [address] Care Team Providers Care Medium Cycle Salesperson Name Role Phone Unavailable Primary Care Provider Unavailabl e Encounter Details Date Type Department Care Team (Late st Contact Info) Description 12/30/2021 Transcribed Document [facility] [place] Medicine [facility] [place] [address] ProviderDario MD [address], [place] [id number] Social History Tobacco Use Types Packs/Day Years [...] 12/30/2021 13:25 EDT by Vaishnavi Cunha V, Storage Specialist Cell Operation Supervisor Care Management Progress Note Discharge Arrangements : [...] Multidisciplinary Rounds? : Yes Vaishnavi Cunha V Storage Specialist Cell Operation Supervisor - 12/30/2021 13:25 EDT Narrative Progress Note Narrative Progress Note : HD#6 [id number] RAR-moderate CM sent PT/OT updates to [facility] for insurance precert approval. CM rescheduled patient's [facility] ambulance transport to Wednesday, 12/31 at 7pm. Per Lisandra with [facility], transport time is ok since he is returning there. If precert isn't approved, CM will need to reschedule transportation. DCP-Transfer back to [facility] pending insurance precert approved. [facility] ambulance scheduled tentively for 7pm om 12/31 in case insurance precert is approved. Vaishnavi Cunha V Storage Specialist Cell Operation Supervisor - 12/30/2021 13:31 EDT Historical Progress Note : Patient is medically ready for discharge. CM sent updates to [facility]. [facility] intiated insurance precert today. DCP-Transfer back to [facility] when insurance precert is approved. [facility] ambulance scheduled tentively for 6pm om 12/30 in case insurance precert is approved. Vaishnavi Cunha V Storage Specialist Cell Operation Supervisor - 12/29/21 12:04:25 Patient is medically ready for discharge. Cm sent updates to [facility]. CM sent message to Lisandra from [facility] asking for precert with insurance to be started as soon as possible. Cm scheduled [facility] for 6 pm 12/29 if bed is available and precert obtained. [facility] will need to be changed if patient is not approved to go. CM will continue to follow. CALIXTO MCCABE Storage Specialist-Steak Sauce Maker - 12/28/21 13:59:37 Vaishnavi Cunha V Storage Specialist Cell Operation Supervisor - 12/30/2021 13:25 EDT Electronically signed by Anthony [facility] Conversion Two Way Radio Installer Cerner at 12/29/2022 4:59 PM CDT documented in this encounter Plan of Treatment Not on file documented as of this encounter Visit Diagnoses Not on filedocumented in this encounter
--- OUTSIDE RECORDS SUMMARY | 2025-03-27 14:13 | XMS_ITS | Encounter Summary ---
Author Organization [employer] ([place], [place], [place], [place]) Address [address] [place] [address] Care Team Providers Care Algebraist Name Role Phone Unavailable Primary Care Provider Unavailabl e Encounter Details Date Type Department Care Team (Late st Contact Info) Description 12/27/2021 Transcribed Document [facility] Family Medicine [facility] [place] [address] ProviderDario MD [address] [place], [place] [id number] Social History Tobacco Use Types Packs/Day Years [...]
--- OUTSIDE RECORDS SUMMARY | 2025-03-27 14:13 | XMS_ITS | Encounter Summary ---
Author Organization [employer] ([place], [place], [place], [place]) Address [address] [place] [address] Care Team Providers Care Floral Specialist Name Role Phone Unavailable Primary Care Provider Unavailabl e Encounter Details Date Type Department Care Team (Late st Contact Info) Description 12/26/2021 Transcribed Document [facility] [place] [facility] [place] [address] ProviderDario MD [address], [place] [phone] Social History Tobacco Use Types Packs/Day Years Used Date Smoking Tobacco: Never Assessed Sex and Gender Information Value Date Recorded Sex Assigned at Not on file Legal Sex Male 5:38 PM CDT Gender Identity Not on file Sexual Orientation Not on file documented as of this encounter Miscellaneous Notes * Cerner Conversion Note - Daroi ProviderMD - 12/26/2021 9:20 AM CDT UM Authorization Entered On: 12/26/2021 9:23 EDT Performed On: 12/26/2021 9:20 EDT by DIONNE SCHAFFER RN-UTILIZATION MANAGEMENT REVIEW NON-EXEMPT Primary Insurance Authorization Authorization and Policy Numbers : Insurance 1 Health Plan: [employer] MANAGED MEDICARE Policy Number: [id number] Authorization Number: Insurance Primary Name : [employer] MANAGED MEDICARE Policy Number: [id number] Authorization Status-Primary : Awaiting callback Reference Number-Primary : [id number] Authorization Number-Primary : [id number] Authorized Service Begin Date-Primary : 12/24/2021 EDT Authorization Comments-Primary : c/s clinicals faxed via [employer], auth remains under review on [employer] portal Historical Authorization Comments-Primary : Comment 1: Clinicals submitted on [employer] website for IP approval (JODY MUÑOZ RN 12/25/2021 08:50) DIONNE SCHAFFER RN-UTILIZATION MANAGEMENT REVIEW NON-EXEMPT - 12/26/2021 9:20 EDT documented in this encounter Plan of Treatment Not on file documented as of this encounter Visit Diagnoses Not on filedocumented in this encounter
--- OUTSIDE RECORDS SUMMARY | 2025-03-27 14:13 | XMS_ITS | Encounter Summary ---
Author Organization [employer] ([place], [place], [place], [place]) Address [address] [place] [address] Care Team Providers Care Windows Admin Name Role Phone Unavailable Primary Care Provider Unavailabl e Encounter Details Date Type Department Care Team (Late st Contact Info) Description 12/27/2021 Transcribed Document [facility] Family Medicine [facility] [address] ProviderDario MD [address], [place] [id number] Social History Tobacco Use Types Packs/Day Years [...] EEG-video monitoring was performed using the 32-channel FOBO monitoring system. The seizure detection computer was [...] noted, suggestive of mild diffuse cerebral dysfunction. /[id number] MD TERRENCE Dong/AQ / TAF / MODL /[id number] documented in this encounter Plan of Treatment Not on file documented as of this encounter Visit Diagnoses Not on filedocumented in this encounter
[2025-03-27] MEDS: ERTAPENEM SODIUM 1 GM VIAL IM (14:44)
[2025-03-27 14:50] VITALS: BP 129/71; PULSE 81; RESP 18; O2SAT 99
--- OUTSIDE RECORDS SUMMARY | 2025-05-21 20:00 | XMS_ITS | Clinical Summary ---
Author Organization [facility] Address 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 Active 09-25 00:00: 00 HALFWAY (CURRENT) USE OF 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 ICS/ANTIPLAT ELETS Active [...] mg chewable tablet 09-25 00:00: 00 Yes [id number] HEART DISEASE 1 tablet DAILY 1 tablet DAILY (route: oral) Med Classific ation: Hematolog ical Agents baclofen 10 mg tablet 09-25 00:00: 00 Yes [id number] MUSCLE SPASMS 1 tablet 2 TIMES DAILY 1 tablet 2 TIMES DAILY (route: oral) Med Classific ation: Locomotor System Basaglar KwikPen U-100 Insulin 100 unit/mL (3 mL) subcutaneou s 09-25 00:00: 00 Yes [id number] DIABETIC 42 unit BEDTIME 42 unit BEDTIME (route: subcutaneo ) Med Classific ation: Endocrine Cherelle Back and Body 500 mg-32.5 mg tablet 09-25 00:00: 00 Yes [id number] PAIN 1 tablet NEEDED 1 tablet NEEDED (route: oral) Med Classific ation: Analgesic , Anti-infl ammatory or Antipyret ic carvedilol 3.125 mg tablet 09-25 00:00: 00 Yes [id number] HEART RATE 1 tablet 2 TIMES DAILY 1 tablet 2 TIMES DAILY (route: oral) Med Classific ation: Cardiovas cular Therapy Agents clopidogrel 75 mg tablet 09-25 00:00: 00 Yes [id number] BLOOD THINNER 1 tablet DAILY 1 tablet DAILY (route: oral) Med Classific ation: Hematolog ical Agents folic acid 1 mg tablet 09-25 00:00: 00 Yes [id number] SUPPLEMENT 1 tablet DAILY 1 tablet DAILY (route: oral) Med Classific ation: Electroly te Balance-N utritiona l Products furosemide 40 mg tablet 09-25 00:00: 00 Yes [id number] FLUID 1 tablet DAILY 1 tablet DAILY (route: oral) Med Classific ation: Cardiovas cular Therapy Agents gabapentin 100 mg capsule 09-25 00:00: 00 Yes [id number] NERVE PAIN 2 capsule 3 TIMES DAILY 2 capsule 3 TIMES DAILY (route: oral) Med Classific ation: Central Nervous System Agents lamotrigine 100 mg tablet 09-25 00:00: 00 Yes [id number] SEIZURES 1 tablet 2 TIMES DAILY 1 tablet 2 TIMES DAILY (route: oral) Med Classific ation: Central Nervous System Agents lamotrigine 150 mg tablet 09-25 00:00: 00 Yes [id number] SEIZURES 1 tablet BEDTIME 1 tablet BEDTIME (route: oral) Med Classific ation: Central Nervous System Agents levofloxaci n 750 mg tablet 09-25 00:00: 00 11-10 23:59 :00 No [id number] INFECTION 1 tablet DAILY 1 tablet DAILY (route: oral) Med Classific ation: Anti-Infe ctive Agents multivitami n tablet 09-25 00:00: 00 Yes [id number] SUPPLEMENT 1 tablet DAILY 1 tablet DAILY (route: oral) Med Classific ation: Electroly te Balance-N utritiona l Products ondansetron 4 mg disintegrat ing tablet 09-25 00:00: 00 Yes [id number] NAUSEA 1 tablet NEEDED 1 tablet NEEDED (route: oral) Med Classific ation: Gastroint estinal Therapy Agents Pacerone 400 mg tablet 09-25 00:00: 00 Yes [id number] HEART RATE 1 tablet 2 TIMES DAILY 1 tablet 2 TIMES DAILY (route: oral) Med Classific ation: Cardiovas cular Therapy Agents pantoprazol e 40 mg tablet,jossie yed release 09-25 00:00: 00 Yes [id number] ACID REFLUX 1 tablet DAILY 1 tablet DAILY (route: oral) Med Classific ation: Gastroint estinal Therapy Agents amoxicillin 875 mg-potassiu m clavulanate 125 mg tablet 01-31 00:00: 00 02-07 23:59 :00 No [id number] UTI 1 tablet EVERY AM 1 tablet EVERY AM (route: oral) Med Classific ation: Anti-Infe ctive Agents levofloxaci n 500 mg tablet 2025-0 6-14 00:00: 00 03-10 23:59 :00 No [id number] DYSURIA 1 tablet DAILY 1 tablet DAILY (route: oral) Med Classific ation: Anti-Infe ctive Agents Vital Signs Vital Name Observation Time Observation Value Commen ts Temperature 2025-03-26 12:34:00.000 98.1 [degF] Pulse 2025-03-26 12:34:00.000 79 /min O2 Saturation (%) 2025-03-26 12:34:00.000 99 % Respirations 2025-03-26 12:34:00.000 16 /min Systolic Blood Pressure 2025-03-26 12:34:00.000 136 mm [Hg] Diastolic Blood Pressure 2025-03-26 12:34:00.000 83 mm [Hg] Plan of Care Planned Activity Planned Date Details Comments Future Scheduled Test SKILLED NU RSE PRN [...] THE PLAN OF CARE.] Future Scheduled Test PSYCHOSOCI AL / COGNITIVE ASSESSMENT INDICATES THE FOLLOWING NEEDS: (SOCIAL, FINANCIAL, TRANSPORTATION, ADDITIONAL CARE PROVIDERS/ DISCIPLINES, REFERRALS TO OUTSIDE ENTITIES, ETC.). [code = PSYCHOSOCIAL / COGNITIVE ASSESSMENT INDICATES THE FOLLOWING NEEDS: (SOCIAL, FINANCIAL, TRANSPORTATION, ADDITIONAL CARE PROVIDERS/ DISCIPLINES, REFERRALS TO OUTSIDE ENTITIES, ETC.).] Future Scheduled Test SKILLED NU RSE TO [...] ASSISTANCE WITH MANAGING DEPRESSION.] Future Scheduled Test CLINICIAN TO EDUCATE PATIENT / CAREGIVER IN FALL PREVENTION AND PROVIDE INTERVENTIONS TO REDUCE FALL RISK AND ENHANCE HOME SAFETY [code = CLINICIAN TO EDUCATE PATIENT / CAREGIVER IN FALL PREVENTION AND PROVIDE INTERVENTIONS TO REDUCE FALL RISK AND ENHANCE HOME SAFETY] Future Scheduled Test PATIENT/CA REGIVER WILL BE KNOWLEDGEABLE OF DISCHARGE PLANS AND WILL DEMONSTRATE/PROVIDE EDUCATION AND RESOURCES NEEDED TO MAINTAIN HEALTH. [code = PATIENT/CAREGIVER WILL BE KNOWLEDGEABLE OF DISCHARGE PLANS AND WILL DEMONSTRATE/PROVIDE EDUCATION AND RESOURCES NEEDED TO MAINTAIN HEALTH.] Future Scheduled Test AGENCY ANGES L DISCHARGE PATIENT TO PHYSICIAN/HEALTH CARE PROVIDER AND MAY ACCEPT ORDERS FROM THE FOLLOWING PHYSICIANS: DR MADSEN [code = AGENCY WILL DISCHARGE PATIENT TO PHYSICIAN/HEALTH CARE PROVIDER AND MAY ACCEPT ORDERS FROM THE FOLLOWING PHYSICIANS: DR MADSEN] Future Scheduled Test SKILLED NU RSE TO [...] AND HEART DISEASE .] Future Scheduled Test SKILLED NU RSE TO [...] FOR EDEMA MANAGEMENT/WEEPING. ] Future Scheduled Test CLINICIAN TO OBSERVE AND ASSESS FOR SIGNS OF ANXIETY AND INSTRUCT PATIENT/CAREGIVERS IN HEALTHY BEHAVIORS AND MANAGEMENT STRATEGIES. [code = CLINICIAN TO OBSERVE AND ASSESS FOR SIGNS OF ANXIETY AND INSTRUCT PATIENT/CAREGIVERS IN HEALTHY BEHAVIORS AND MANAGEMENT STRATEGIES.] Future Scheduled Test SKILLED NU RSE FOR [...] CARE.] Future Scheduled Test SKILLED NU RSE FOR [...] PROVIDER.] Future Scheduled Test SKILLED NU RSE TO FOCUS ON IDENTIFIED NEED FOR HIGH RISK MEDICATION INTERVENTION. [code = SKILLED NURSE TO FOCUS ON IDENTIFIED NEED FOR HIGH RISK MEDICATION INTERVENTION.] Future Scheduled Test PSYCHOSOCI AL / COGNITIVE [...] MAINTAIN HEALTH.] Progress Notes * <paragraph>[Visit Date: 2025-03-26 by KASHIF PEREZ RN]:</paragraph><paragraph>ROUTINE NURSING VISIT FOR ASSESSMENT, WOUND CARE TO THE LEFT FOOT AMPUTATION SITE AND EDUCATION PATIENT SITTING IN HIS BED IN THE LIVING ROOM AT TIME OF NURSES ARRIVAL, HAS MOTORIZED WHEELCHAIR WITHIN REACH. ALERT AND ORIENTED TIMES FOUR, PATIENT STATES THAT HE HAS NOT BEEN FEELING VERY WELL SINCE COMPLETING THE ANTIBIOTIC. COMPLAINTS OF CHRONIC LEFT LOWER EXTREMITY DISCOMFORT. COMPLAINTS OF FEELING LETHARGIC AND STATES THAT HE EVEN PASSED OUT ONE DAY OVER THE WEEKEND WHILE WITH HIS NEIGHBORS. PATIENT VERBALIZED FRUSTRATION ABOUT NOT KNOWING WHAT THE PLAN IS WITH HIS CURRENT URINARY TRACT INFECTION, NURSE HAD SPOKE WITH PROVIDERS OFFICE LAST WEDNESDAY AND RECOMMENDED TREATMENT WAS NOT APPROVED BY [facility] MANA[facility] DUE TO FREQUENCY OF VISITS. PROVIDER HAS BEEN ASKED TO COME UP WITH ANOTHER PLAN. AT THIS TIME NURSE HAS NOT RECEIVED ANY PHONE CALLS FROM THE DOCTOR'S OFFICE TODAY, PATIENT STATES HEWOULD LIKE TO KNOW WHAT'S GOING ON BECAUSE HE JUST DOES NOT FEEL WELL. VITAL SIGNS ARE STABLE, DENIES ISSUES WITH CHEST PAIN, NO CHEST PRESSURE AND NO SHORTNESS OF AIR. NOTIFIED DR MEHTA OFFICE AND SPOKE WITH TRUPTI, REQUESTED A MESSAGE BE SENT BACK TO THE PROVIDER FOR PLAN OF CARE REGARDING CURRENT URINARY TRACT INFECTION, ALSO REPORTED PATIENT'S SYMPTOMS OF BEING LETHARGIC AND NOT FEELING WELL. NURSE HAS REQUESTED A RETURN CALL AND ALSO A CALL TO THE PATIENT WELL PER PATIENT REQUEST. AWAITING A RETURN CALL. DRESSING REMOVED TO THE LEFT LOWER EXTREMITY AND CLEANSED WOUND ORDERED. NO ODORS. NO SIGNIFICANT CHANGES IN WOUND STATUS. WOUND CARE PROVIDED ORDERED AND PATIENT TOLERATED WELL WITHOUT COMPLAINTS. CONTINUES WITH DEXCOM MONITORING GLUCOSE AND WAS 180 AT TODAY'S ASSESSMENT FASTING. INDWELLING CATHETER IS DRAINING DARK YELLOW URINE TO A BEDSIDE BAG, CURRENT URINARY BAG WAS VERY FULL AND NURSE EDUCATED ON THE IMPORTANCE OF DRAINING ROUTINELY TO PREVENT IT FROM BECOMING THAT FULL. NURSE ASSISTED PATIENT IN DRAINING URINARY BAG OF NEARLY 2,000 ML OF YELLOW DARK URINE. INSTRUCTED PATIENT TO NOTIFY [facility] FOR ANY QUESTIONS OR CONCERNS AND TO SEEK EMERGENCY MEDICALTREATMENT FOR EMERGENCY SITUATIONS. PATIENT STATES UNDERSTANDING</paragraph> Encounters Start Date/Time End Date/Time Encounter Type Admission Type Attending Clinicians Care Facility Care Department Encounter ID 2025-03-24 00:00:00 2025-05-22 00:00:00 Unknown ACRTIFICATIYUMI YAO, LE BABB [facility] [id number]
== END 2025-03-27 14:50 | disposition home or self-care (01) ==
LOC: INF 14:08
PROVIDERS: PCP Nurse Practitioner Family; Visit Provider Nurse Practitioner Family
DX: N39.0 Urinary tract infection, site not specified (principal)
CPT/HCPCS: 96372; J1335

== ENCOUNTER 2025-04-13 09:53 | Outpatient (CLI) | payer MEDICARE, SELFPAY ==
--- OUTSIDE RECORDS SUMMARY | 2023-01-18 05:30 | XMS_ITS | Continuity of Care Document ---
Author Organization [address] [place] [address] Address [address] [facility] [address] [place] [address] Phone Care Team Providers Care Basket Patcher Name Role Phone Ruben Avila DPM Unavailable [...] Copied on Encounter NURSING FAC CARE SUBSEQ [address] [place] [address], [address] [place] [address], [place], [id number], tel:[phone] [facility] Acquired absence of right leg above kneeTinea unguiumType 2 diabetes mellitus with diabetic peripheral angiopathy without gangrene 3 Austin Miranda. [address] [facility], [address], [place], [address], . Referring Provider: Gustavo Leggett. PSYCH DIAGNOSTIC EVALUATION [address] [place] [address], [address] [place] [address], [place], [place], [id number], tel:[phone] [facility] Adjustment disorder with depressed mood 3 [place]. [place]. [facility] 30 360[facility], [address] [place] [address] 300, [place], [place], [id number], [place] tel:[phone] [facility] Depressed mood withincrease d sadness, Less motivation, (chief complaint) Major depressive disorder, single episode, moderateGene ralized anxiety disorder 3 Wade Russell. [place]. [address] [place] [address], [address] [place] [address] 300, [place], [place], [id number], [place] tel:[phone] [facility] Impacted cerumen, right ear 3 Rachid Kearnsisten. [place]. Referring Provider: Gustavo Leggett. 1ST CARE SF/LOW MDM [address] [place] [address], [address] [place] [address], [place], [place], [id number], tel:[phone] [facility] Initial assessment for Anxiety, Depression, occasional (chief complaint) Major depressive disorder, single episode, moderateGene ralized anxiety disorder 3 [place]. [address] [place] [address], [address] [place] [address], [place], [place], [id number], [place] tel:[phone] [facility] Encounter for dental examination and cleaning without abnormal findings 3 [place], [place], [place]. tel:[phone] Referring Provider: Gustavo Leggett. NURSING FAC CARE SUBSEQ [address] [place] [address], [address] [place] [address], [place], [place], [id number], [place] tel:[phone] [facility] Tinea unguiumType 2 diabetes mellitus with diabetic peripheral angiopathy without gangreneAbra joseph, left lesser toe(s), initial encounterAcq uired absence of right leg above knee 3 Austin Miranda. [address] [facility], [address], [place], [address], [place]. Referring Provider: Gustavo Leggett. [address] [place] [address], [address] [place], [place] [address], [place], [place], [id number], [place] tel:[phone] [facility] Diabetic eye exam (chief complaint) Type 2 diabetes mellitus without complication sVitreous degeneration , bilateralAge -related nuclear cataract, bilateralDry eye syndrome of bilateral lacrimal glands 2 Zaira Escobar. [address], [address], [place], [address], [place]. Referring Provider: Gustavo Leggett. [address] [place] [address], [address] [place] [address], [place], [place], [id number], [place] tel:[phone] [facility] No Information 2 Zaira Escobar. [address] [facility], [address], [place], [place], [facility], . Family History Family Member Type Diagnosis Age At Onset No Information Payers Payer name Insurance type Covered republican ID Sushila hussein(s) [employer] Medicare [place] [id number] Medicaid [place] [id number] Social History Type Description Quantity Date Captured [...] of bilateral lacrimal glands Impression/Plan - Dr harrington eye syndrome is significant; treat with artificial [...]
--- OUTSIDE RECORDS SUMMARY | 2025-04-13 09:54 | XMS_ITS | Continuity of Care Document ---
Author Organization [facility]. If a dditional information is needed, contact Health Information Management at [phone] Address [address] [place] [address] Phone Care Team Providers Care Still Photographer Name Role Phone Unavailable Unavailable Unavailable Unavailable [...]
--- OUTSIDE RECORDS SUMMARY | 2025-04-13 09:55 | XMS_ITS | Clinical Summary ---
Author Organization [facility] Address [address] [place] [address] Phone Care Team Providers Care Supervisor Road Administrator Name Role Phone Mckenna MURILLO, Britton Clifford [ ] Conditions or Problems Problem Name Problem Code Onset Date Status Entry Date Provider Comment Standard Description Annotate DM Non-pressure chronic ulcer of left heel, black/dry (document depth) 195589314 (SNOMED CT) 09/19 Active 09/19 Crys Alfredo Chronic ulcer of foot Infection, local skin/subcuta neous tissue 337410783 (SNOMED CT) 09/19 Active 09/19 Crys Alfredo Localized infection of skin AND/OR subcutaneous tissue Gangrene with DM II PVD 09056883 (SNOMED CT) 09/19 Active 09/19 Crys Alfredo Type 2 diabetes mellitus DM II with diabetic PVD 370859114 (SNOMED CT) Active Crys Alfredo Peripheral vascular disease Diabetes mellitus, type II with peripheral vascular disorder, with gangrene 921392308 (SNOMED CT) Resolved Crys Alfredo Peripheral circulatory disorder due to type 2 diabetes mellitus Presence of ambrose catheter 330891236 (SNOMED CT) Resolved Crys Alfredo Urinary catheter in situ Benign Essential Hypertension 62280951 (SNOMED CT) Active Crys Alfredo Benign hypertension DM II with diabetic polyneuropat hy E11.42 (ICD-10-CM) Active Crys Alfredo Type 2 diabetes mellitus with diabetic polyneuropathy Other obesity due to excess calories 796625276 (SNOMED CT) Active Myranda Zelaya Simple obesity Presence of ambrose catheter 415151858 (SNOMED CT) Removed Bibi Edelen Urinary catheter in situ Pressure ulcer of left buttock, stage 1 27785269089 617335 (SNOMED CT) Active Bibi Edelen Pressure injury of buttock stage I Pressure ulcer of right buttock, stage 1 49407540034 107 (SNOMED CT) Active Bibi Edelen Pressure injury of right buttock stage I Cellulitis of left lower limb 021937292 (SNOMED CT) Active Bibi Edelen Cellulitis of leg, excluding foot Diabetes mellitus, type II with peripheral vascular disorder, with gangrene 867654494 (SNOMED CT) Removed Bibi Edelen Peripheral circulatory disorder due to type 2 diabetes mellitus Hx of DVT 547671230 (SNOMED CT) Active Bibi Edelen History of deep vein thrombosis Amputation of right leg above knee 972509863 (SNOMED CT) Active Bibi Edelen Amputated above knee Diabetes mellitus, type II with peripheral vascular disorder, without gangrene 114417066 (SNOMED CT) Inactive Bibi Edelen Peripheral circulatory disorder due to type 2 diabetes mellitus Diabetes mellitus, type II with peripheral neuropathy 47706077121 07 (SNOMED CT) Inactive Bibi Edelen Peripheral neuropathy due to type 2 diabetes mellitus Hypertension 95603269 (SNOMED CT) Inactive Bibi Edelen Hypertensive disorder Medications Medication Instructions Start Date Stop Date Generic Name NDC Provider DOXYCYCLINE HYCLATE 100 MG CAPS Take 1 capsule by mouth 2 (Two) Times a Day for 10 days. doxycycline hyclate 34740851638 QIE qieuser AMOXICILLIN-POT CLAVULANATE 875-125 MG TABS 1 {tbl} Oral amoxicillin-pot clavulanate 95147216432 QIE qieuser ATORVASTATIN CALCIUM 40 MG TABS Take 2 tablet by mouth every night atorvastatin 91457876967 Daria Minor METFORMIN HCL 500 MG TABS Take 2 tablet by mouth twice a day metformin 29374847245 Adria Minor CLOPIDOGREL BISULFATE 75 MG TABS Take 1 tablet by mouth once a day clopidogrel 59603599715 Daria Minor PEG 3350 17 GM PACK Take 17 gram by mouth once a day as needed polyethylene glycol 3350 08601081418 Daria Minor LAMOTRIGINE 100 MG TABS Take 1 tablet by mouth every morning lamotrigine 23906646043 Daria Minor FINASTERIDE 5 MG TABS Take 1 tablet by mouth once a day finasteride 52812867857 Daria Minor DOCUSATE SODIUM 250 MG CAPS Take 1 capsule by mouth twice a day docusate sodium 95354658928 Daria Minor ASPIRIN 81 MG TBEC Take 1 tablet by mouth once a day aspirin 21490335698 Daria Minor FUROSEMIDE 40 MG TABS Take 1 tablet by mouth once a day furosemide 38268885861 Daria Minor Thera M Plus (ferrous fumarat) 9 mg iron-400 mcg tablet Take 1 tablet by mouth once a day gtzjlpkc-pnor-g p-ytisido-cbok 36739344325 Daria Minor FERROUS SULFATE 325 (65 Fe) MG TABS Take 1 tablet by mouth every morning ferrous sulfate 66603390726 Daria Minor LAMOTRIGINE 25 MG TABS Take 10 tablet by mouth every night lamotrigine 16995384707 Daria Minor BACLOFEN 20 MG TABS Take 1 tablet by mouth as needed baclofen 85004007162 Daria Minor TAMSULOSIN HCL 0.4 MG CAPS Take 2 capsule by mouth once a day tamsulosin 47645509380 Daria Minor DIAZEPAM 2 MG TABS Take 1 tablet by mouth twice a day as needed diazepam 45547988541 Daria Minor LOSARTAN POTASSIUM 50 MG TABS Take 1 tablet by mouth once a day losartan 11696955573 Daria Minor BUSPIRONE HCL 5 MG TABS Take 1 tablet by mouth three times a day buspirone 74609488014 Daria Minor METOPROLOL SUCCINATE ER 25 MG [id number] Take 1 tablet by mouth once a day metoprolol succinate 91701632551 Daria Minor ubrogepant Take 1 tablet by mouth once a day as needed UBRELVY Daria Minor GLIPIZIDE 5 MG TABS Take 1 tablet by mouth twice a day glipizide 77082193857 Daria Minor ubrogepant Take 1 tablet by mouth Daily As Needed. UBRELVY QIE qieuser TAMSULOSIN HCL 0.4 MG CAPS Take 2 capsules by mouth Daily. tamsulosin 52387594415 QIE qieuser PEG 3350 17 GM PACK Take 17 g by mouth Daily As Needed. polyethylene glycol 3350 66447044671 QIE qieuser Thera M Plus (ferrous fumarat) 9 mg iron-400 mcg tablet Take 1 tablet by mouth Daily. qqfvpibd-uxpi-h o-byxylcd-hkmo 93941261775 QIE qieuser METOPROLOL SUCCINATE ER 25 MG [id number] Take 1 tablet by mouth Daily. metoprolol succinate 68590781926 QIE qieuser METFORMIN HCL 500 MG TABS Take 2 tablets by mouth 2 (Two) Times a Day With Meals. metformin 48946315376 QIE qieuser LOSARTAN POTASSIUM 50 MG TABS Take 1 tablet by mouth Daily. losartan 88908193666 QIE qieuser LAMOTRIGINE 25 MG TABS Take 10 tablets by mouth Every Night. lamotrigine 26916722376 QIE qieuser LAMOTRIGINE 100 MG TABS Take 1 tablet by mouth Every Morning. lamotrigine 95818152365 QIE qieuser GLIPIZIDE 5 MG TABS Take 1 tablet by mouth 2 (Two) Times a Day Before Meals. glipizide 83602676420 QIE qieuser FUROSEMIDE 40 MG TABS Take 1 tablet by mouth Daily. furosemide 33370107521 QIE qieuser FINASTERIDE 5 MG TABS Take 1 tablet by mouth Daily. finasteride 33153897353 QIE qieuser FERROUS SULFATE 325 (65 Fe) MG TABS Take 1 tablet by mouth Daily With Breakfast. ferrous sulfate 18988521266 QIE qieuser DOXYCYCLINE HYCLATE 100 MG CAPS Take 1 capsule by mouth 2 (Two) Times a Day for 7 days. doxycycline hyclate 12963865683 QIE qieuser DOCUSATE SODIUM 250 MG CAPS Take 1 capsule by mouth 2 (Two) Times a Day. docusate sodium 98935841304 QIE qieuser DIAZEPAM 2 MG TABS Take 1 tablet by mouth 2 (Two) Times a Day As Needed for Anxiety. diazepam 17802709539 QIE qieuser CLOPIDOGREL BISULFATE 75 MG TABS Take 1 tablet by mouth Daily. clopidogrel 58353584438 QIE qieuser BUSPIRONE HCL 5 MG TABS Take 1 tablet by mouth 3 (Three) Times a Day. buspirone 63205603298 QIE qieuser BACLOFEN 20 MG TABS Take 1 tablet by mouth As Needed for Muscle Spasms. baclofen 17416469701 QIE qieuser ATORVASTATIN CALCIUM 40 MG TABS Take 2 tablets by mouth Every Night. atorvastatin 15025522807 QIE qieuser ASPIRIN 81 MG TBEC Take 1 tablet by mouth Daily. OTC aspirin 59579581199 QIE qieuser AMOXICILLIN-POT CLAVULANATE 875-125 MG TABS Take 1 tablet by mouth 2 (Two) Times a Day for 7 days. amoxicillin-pot clavulanate 76393198746 QIE qieuser Medications Administered No information available. [...]
--- OUTSIDE RECORDS SUMMARY | 2025-04-13 09:55 | XMS_ITS | Encounter Summary ---
Author Organization [employer] ([place], [place], [place], [place]) Address [address] [place] [address] Care Team Providers Care Lubricating Specialist Name Role Phone Unavailable Primary Care Provider Unavailabl e Encounter Details Date Type Department Care Team (Late st Contact Info) Description 12/31/2021 Transcribed Document [facility] [address] [place] [address] ProviderDario MD [address] [place], [place] [id number] Social History Tobacco Use Types Packs/Day Years [...] Health Plan: [employer]ICARE Policy Number: [id number] Authorization Number: Insurance Primary Name : [facility] [employer] MEDICARE Policy Number: [id number] Authorization Status-Primary : Certified in total Reference Number-Primary : [id number] Authorization Number-Primary : [id number] Number of Days Authorized-Primary : 11 Day(s) Authorized Service Begin Date-Primary : 12/24/2021 EDT Authorized Service End Date-Primary : 01/04/2022 EDT Authorization Comments-Primary : c/s clinicals faxed via [facility] 12/27-12/31 Historical Authorization Comments-Primary : Comment 1: cont stay approved per fax from [facility] 12/26/21 NRD 01/05/22 (CARMEN TRENT, Advertising Director 12/26/2021 12:07) Comment 2: c/s clinicals faxed via [employer], auth remains under review on [facility] portal (DIONNE SCHAFFER RN-UTILIZATION MANAGEMENT REVIEW NON-EXEMPT 12/26/2021 09:20) Comment 3: Clinicals submitted on [facility] website for IP approval (JODY MUÑOZ RN 12/25/2021 08:50) DIONNE SCHAFFER RN-UTILIZATION MANAGEMENT REVIEW NON-EXEMPT - 12/31/2021 13:58 EDT Electronically signed by Olena Cruz Conversion Assistant Professor Of Mathematics Cerner at 12/29/2022 4:38 PM CDT documented in this encounter Plan of Treatment Not on file documented as of this encounter Visit Diagnoses Not on filedocumented in this encounter
--- OUTSIDE RECORDS SUMMARY | 2025-04-13 09:55 | XMS_ITS | Encounter Summary ---
Author Organization Healthcare Address [address] [place] [address] Care Team Providers Care E Learning Manager Name Role Phone John Paul Orellana MD Primary Care Provider [phone] Encounter Details Date Type Department Care Team (Late st Contact Info) Description 08/04/2023 Community Orders Community [facility] [address] [place] [address] Shree Anand MD [address] [facility] [address] [place] [address] Parkinsonian features (Primary Dx) Social [...] drink first t clarita in the morning (EYE-CIGARETTE CARTON SEALER) to steady your nerves or to get [...] documented as of this encounter Care Teams E Learning Manager Relationship Specialty Start Date End Date John Paul Orellana MD [address] [place] [address] PCP - General 01/24/21 documented as of this encounter
--- OUTSIDE RECORDS SUMMARY | 2025-04-13 09:55 | XMS_ITS | Continuity of Care Document ---
Author Organization [facility] Address [address] [place] [address] Care Team Providers Care Pie Topper Name Role Phone John Paul Orellana MD Primary Care Provider [phone] Encounters Date Type Department Care Team Description 05/23/2022 12:45 PM EDT - 05/23/2022 11:59 PM EDT [facility] [address] [place] [address] System, Provider Not In Discharge Disposition: Home or Self Care 05/20/2022 3:19 AM EDT - 05/23/2022 2:00 PM EDT Hospital Encounter [facility] [address] [place] [address] Luz Kumari MD Knighton, Martha A, MD Acute encephalopathy (Primary Dx); Acute respiratory failure with hypoxia Discharge Disposition: Detention Facility 04/13/2022 9:45 AM EDT Office Visit [address] [address] Cecil Carrillo MD Meningioma (Primary Dx) 04/01/2022 1:12 PM EDT - 04/05/2022 5:41 PM EDT Hospital Encounter [facility] [address] [place] [address] Carter Barajas DO Status epilepticus (Primary Dx) Discharge Disposition: Detention Facility Allergies Active Allergy Reactions Criticality Noted Date Comments Codeine 04/01/2022 Ketorolac Tromethamine 04/01/2022 Bupropion 04/01/2022 Hydrocodone-Acetaminophen 04/01/2022 Medications atorvastatin (LIPITOR) 40 MG tablet Take 40 mg by mouth nightly. Active baclofen (LIORESAL) 20 MG tablet Take 10 mg by mouth 3 (three) times daily. Active busPIRone (BUSPAR) 5 MG tablet Take 5 mg by mouth 3 (three) times daily. Active finasteride (PROSCAR) 5 MG tablet Take 5 mg by mouth daily. Active glipiZIDE (GLUCOTROL) 5 MG tablet Take 5 mg by mouth 2 (two) times daily before meals. Active lamoTRIgine (LAMICTAL) 200 MG tablet Take 250 mg by mouth 2 (two) times daily. Active metFORMIN (GLUCOPHAGE) 1000 MG tablet Take 1,000 mg by mouth 2 (two) times daily with meals. Active triamcinolone (KENALOG) 0.025 % cream Apply topically 2 (two) times daily to affected area(s).. Active diazePAM (DIASTAT ACUDIAL) 10 MG GEL rectal kit 02/15/20 Active aspirin 81 MG EC tablet Take 81 mg by mouth daily. Active furosemide (LASIX) 40 MG tablet Take 40 mg by mouth daily. Active melatonin 3 MG TABS tablet Take 5 mg by mouth nightly. Active potassium chloride SA (KLOR-CON) 20 MEQ tablet Take 20 mEq by mouth daily. Active QUEtiapine (SEROQUEL) 25 MG tablet Take 50 mg by mouth 3 (three) times daily. Active ubrogepant (UBRELVY) 100 MG TABS tablet Take 100 mg by mouth daily as needed for Migraine. Active levETIRAcetam (KEPPRA) 750 MG tablet Take 750 mg by mouth 2 (two) times daily. Active gabapentin (NEURONTIN) 400 MG capsule Take 1 capsule by mouth 3 (three) times daily. Max Daily Amount: 1,200 mg 9 capsule 05/22/20 Active hydrocortisone (CORTEF) 5 MG tablet Take 5 tablets by mouth 2 (two) times daily. 0 tablet 05/22/20 Active diazePAM (VALIUM) 2 MG tablet Take 1 tablet by mouth every 12 (twelve) hours as needed for Anxiety. Max Daily Amount: 4 mg 6 tablet 05/22/20 Active amLODIPine (NORVASC) 10 mg tablet Take 10 mg by mouth daily. Discontinued(St op taking at discharge) benazepril (LOTENSIN) 40 MG tablet Take 40 mg by mouth daily. Discontinued metoprolol, TOPROL-XL, 25 MG 24 hr tablet Take 25 mg by mouth daily. Discontinued Active Problems Problem Noted Date Diagnosed Date Primary hypertension 05/20/2022 Other hyperlipidemia 05/20/2022 Type 2 diabetes mellitus wit hout complication, without long-term current use of insulin 05/20/2022 Seizure disorder 05/20/2022 Hx of AKA (above knee amputation), right Acute respiratory failure with hypoxia Anemia 05/20/2022 Acute encephalopathy 05/20/2022 Lactic acidosis 05/20/2022 Other dysphagia 05/20/2022 Meningioma 04/13/2022 Status epilepticus 04/01/2022 Family History Medical History Relation Comments Seizures Father Relation Status Comments Father Social History Smoking Status as of 04/13/2025 Tobacco Use Types Packs/Day Years Used Date Smoking Tobacco: Never Assessed Sex and Gender Information Value Date Recorded Sex Assigned at Not on file Legal Sex Male 12:17 PM EDT Gender Identity Not on file Sexual Orientation Not on file Last Filed Vital Signs Vital Sign Reading Time Taken Comments Blood Pressure 146/76 05/23/2022 12:00 PM EDT Pulse 80 05/23/2022 12:00 PM EDT Temperature 36.8 C (98.2 F) 05/23/2022 12:00 PM EDT Respiratory Rate 15 05/23/2022 12:0 0 PM EDT Oxygen Saturation 95% 05/23/2022 12: 00 PM EDT Inhaled Oxygen Concentration - - Weight 99.7 kg (219 lb 12.8 oz) 05/23/2022 5:00 AM EDT Height 170.2 cm (5' 7 ) 05/20/2022 3:33 AM EDT Body Mass Index 34.43 05/20/2022 3:33 AM EDT Plan of Treatment Not on file Procedures Procedure Name Priority Date/Time Associated Diagnosis Comments CARD EVENT MONITOR UP TO 30 DAYS Routine 06/12/2022 8:11 AM EDT Syncope, unspecified syncope type GLUCOSE-GLUCOMETER Routine 05/23/2022 11 :55 AM EDT GLUCOSE-GLUCOMETER Routine 05/23/2022 7: 38 AM EDT GLUCOSE-GLUCOMETER Routine 05/23/2022 5: 23 AM EDT GLUCOSE-GLUCOMETER Routine 05/22/2022 9: 43 PM EDT GLUCOSE-GLUCOMETER Routine 05/22/2022 3: 42 PM EDT HB CEPHEID FLU/RSV/COVID STAT 05/22/2022 3:23 PM EDT GLUCOSE-GLUCOMETER Routine 05/22/2022 11 :31 AM EDT FL MODIFIED BARIUM SWALLOW Routine 05/22/2022 10:53 AM EDT GLUCOSE-GLUCOMETER Routine 05/22/2022 7: 40 AM EDT HB CBC/PLT/AUTO DIFF Routine 05/22/2022 4:44 AM EDT HB BMP W TOTAL CALCIUM Routine 05/22/2022 4:44 AM EDT HB MAGNESIUM Timed 05/22/2022 4:44 AM EDT GLUCOSE-GLUCOMETER Routine 05/21/2022 9: 40 PM EDT GLUCOSE-GLUCOMETER Routine 05/21/2022 4: 46 PM EDT ECHO DOPPLER 2D MMODE SPECT COLOR COMPLETE Routine 05/21/2022 3:26 PM EDT GLUCOSE-GLUCOMETER Routine 05/21/2022 11 :21 AM EDT GLUCOSE-GLUCOMETER Routine 05/21/2022 10 :[address] ANGIOGRAM NECK Routine 05/21/2022 6:[address] ANGIOGRAM HEAD Routine 05/21/2022 6:2 1 AM EDT HB PHOSPHORUS BLOOD Routine 05/21/2022 4 :32 AM EDT HB MAGNESIUM Timed 05/21/2022 4:32 AM EDT HB BMP W TOTAL CALCIUM Routine 05/21/2022 4:32 AM EDT HB CBC/PLT/AUTO DIFF Routine 05/21/2022 4:32 AM EDT GLUCOSE-GLUCOMETER Routine 05/20/2022 10 :05 PM EDT CARD HOLTER MONITOR PLACEMENT Routine 05/20/2022 5:53 PM EDT ECG 12-LEAD Routine 05/20/2022 5:02 PM EDT GLUCOSE-GLUCOMETER Routine 05/20/2022 4: 05 PM EDT ROUTINE EEG NORMAL SLEEP W/VIDEO Routine 05/20/2022 2:58 PM EDT GLUCOSE-GLUCOMETER Routine 05/20/2022 9: 52 AM EDT HB UA AUTO W/MICRO STAT 05/20/2022 6: 34 AM EDT HB DRUG SCREEN-ANALYZER (IH) Routine 05/20/2022 6:34 AM EDT HB CULTURE URINE COLONY COUNT STAT 05/20/2022 6:34 AM EDT HB CK/CPK TOTAL STAT 05/20/2022 4:33 AM EDT HB PTT ACTIVATED STAT 05/20/2022 4:33 AM EDT HB LACTIC ACID STAT 05/20/2022 4:33 AM EDT HB TROPONIN I STAT 05/20/2022 4:33 AM EDT HB PROTHROMBIN TIME STAT 05/20/2022 4 :33 AM EDT URINALYSIS STAT 05/20/2022 4:33 AM EDT HB MAGNESIUM Timed 05/20/2022 4:16 AM EDT XR CHEST 1 VW STAT 05/20/2022 4:03 AM EDT HB BLOOD GASES Routine 05/20/2022 3:56 AM EDT HB CULTURE BLOOD STAT 05/20/2022 3:53 AM EDT HB MAGNESIUM STAT 05/20/2022 3:47 AM EDT HB COMP METABOLIC PANEL STAT 05/20/2022 3:47 AM EDT HB PTT ACTIVATED Routine 05/20/2022 3:47 AM EDT HB PROTHROMBIN TIME STAT 05/20/2022 3 :47 AM EDT HB CBC/PLT/AUTO DIFF STAT 05/20/2022 3:47 AM EDT GLUCOSE-GLUCOMETER Routine 04/05/2022 4: 20 PM EDT GLUCOSE-GLUCOMETER Routine 04/05/2022 11 :48 AM EDT GLUCOSE-GLUCOMETER Routine 04/04/2022 10 :39 PM EDT GLUCOSE-GLUCOMETER Routine 04/04/2022 4: 08 PM EDT HB CEPHEID FLU/RSV/COVID STAT 04/04/2022 1:37 PM EDT HB POTASSIUM BLOOD Timed 04/04/2022 12 :16 PM EDT GLUCOSE-GLUCOMETER Routine 04/04/2022 11 :03 AM EDT GLUCOSE-GLUCOMETER Routine 04/04/2022 8: 00 AM EDT HB CBC/PLT/AUTO DIFF Routine 04/04/2022 5:03 AM EDT HB BMP W TOTAL CALCIUM Routine 04/04/2022 5:03 AM EDT GLUCOSE-GLUCOMETER Routine 04/03/2022 10 :08 PM EDT GLUCOSE-GLUCOMETER Routine 04/03/2022 3: 39 PM EDT MRI BRAIN WO & W CONTRAST Routine 04/03/2022 3:37 PM EDT GLUCOSE-GLUCOMETER Routine 04/03/2022 11 :13 AM EDT GLUCOSE-GLUCOMETER Routine 04/03/2022 7: 32 AM EDT HB PHOSPHORUS BLOOD Routine 04/03/2022 3 :43 AM EDT HB BMP W TOTAL CALCIUM Routine 04/03/2022 3:43 AM EDT HB CBC/PLT/AUTO DIFF Routine 04/03/2022 3:43 AM EDT GLUCOSE-GLUCOMETER Routine 04/02/2022 10 :02 PM EDT GLUCOSE-GLUCOMETER Routine 04/02/2022 3: 51 PM EDT HB PCT-PROCALCITONIN Routine 04/02/2022 10:08 AM EDT HB UA AUTO W/MICRO Routine 04/02/2022 9: 57 AM EDT HB CULTURE SPUTUM - W/GS Routine 04/02/2022 9:57 AM EDT GLUCOSE-GLUCOMETER Routine 04/02/2022 9: 43 AM EDT HB HGB A1C Routine 04/02/2022 4:22 AM EDT HB BMP W TOTAL CALCIUM Routine 04/02/2022 4:22 AM EDT HB CBC/PLT/AUTO DIFF Routine 04/02/2022 4:22 AM EDT XR CHEST 1 VW Routine 04/02/2022 3:18 AM EDT GLUCOSE-GLUCOMETER Routine 04/01/2022 10 :[address] HEAD WO CONTRAST STAT 04/01/2022 6 :38 PM EDT HB CULTURE BLOOD STAT 04/01/2022 5:58 PM EDT URINALYSIS STAT 04/01/2022 4:58 PM EDT HB MAGNESIUM STAT 04/01/2022 4:58 PM EDT HB COMP METABOLIC PANEL STAT 04/01/2022 4:58 PM EDT HB PTT ACTIVATED Routine 04/01/2022 4:58 PM EDT HB PROTHROMBIN TIME STAT 04/01/2022 4 :58 PM EDT HB CBC/PLT/AUTO DIFF STAT 04/01/2022 4:58 PM EDT XR ABDOMEN AP ONLY STAT 04/01/2022 4: 45 PM EDT XR CHEST 1 VW STAT 04/01/2022 4:45 PM EDT HB HGB A1C Routine 12/27/2021 4:16 AM EDT Results * Event Monitor up to 30 Days (06/12/2022 8:11 AM EDT) us Tyree Tony MD [facility] CARDIAC SERVICES ORDERABL ES Final Result * Glucose-Glucometer (05/23/2022 11:55 AM EDT) Only the most recent of28 resultswithin the time period is included. [facility] Glucose Glucometer 139 71 - 139 mg/dL 05/23/2022 11:59 AM EDT [facility] Serum 05/23/2022 11:5 5 AM EDT 05/23/2022 11:59 AM EDT us Enedina Chavis MD LAB BLOOD ORDERABLES Final Result [facility] ([id number]) [address] [place] [address] [facility] [address] [place] [address] * COVID FLU RSV PCR Panel: Reason for Testing: Asymptomatic Transfer to Another Facility for Patient Placement (05/22/2022 3:23 PM EDT) Only the most recent of2 resultswithin the time period is included. [facility] COVID, FLU, RSV Source Nasopharyngeal 05/22/2022 2:27 PM EDT [facility] FLU A Result Not Detected Not Detected 05/22/2022 4:13 PM EDT [facility] FLU B Result Not Detected Not Detected 05/22/2022 4:13 PM EDT [facility] RSV Result Not Detected Not Detected 05/22/2022 4:13 PM EDT [facility] COVID-19 Result Not Detected Not Detected 05/22/2022 4:13 PM EDT [facility] COVID Result Comment (note) This test utilizes real-time polymerase chain reaction to detect RNA sequences specific to SARS-CoV-2, influenza A, influenza B, and RSV viruses in nasopharyngeal specimens. Limit of detection is 131 copies/ml for SARS-CoV-2, and ranges from 0.004 to 0.43 TCID50/ml for different strains of influenza and RSV. Due to the possibility of competitive inhibition, a positive result for one virus should not be considered definitive evidence of the absence of other viruses. This test is currently available for use under an Emergency Use Authorization from the [place] Food and Drug Administration. 05/22/2022 4:13 PM EDT [facility] Reason for Testing ASYMPTOMATIC TRANSFER TO ANOTHER FACILITY FOR PATIENT PLACEMENT 05/22/2022 2:27 PM EDT [facility] Nasopharyngeal 05/22/2022 3: 23 PM EDT 05/22/2022 3:33 PM EDT Enedina Chavis MD MICROBIOLOGY [facility] Final Result [facility] ([id number]) [address] [place] [address] [facility] [address] * [place] Modified Barium Swallow (05/22/2022 10:53 AM EDT) Impressions Test Radiology, Technologist, RT - 05/22/2022 10:55 AM EDT were obtained with a speech pathologist. See the Speech Language Pathology Note in the patient's chart for the findings. Narrative Test Radiology, Technologist, RT - 05/22/2022 10:55 AM EDT Images us Enedina Chavis MD IMG FLUOROSCOPY ORDERABLES Final Result * (ABNORMAL) .CBC w/Diff (05/22/2022 4:44 AM EDT) Only the most recent of7 resultswithin the time period is included. White Blood Count 9.40 4.5 - 11.0 10*3/uL 05/22/2022 5:03 AM [facility] Red Blood Count 3.24(L) 4.5 - 5.9 10*6/uL 05/22/2022 5:03 AM [facility] Hemoglobin 9.0(L) 13.5 - 17.5 g/dL 05/22/2022 5:03 AM [facility] Hematocrit 28.6(L) 41.0 - 53.0 % 05/22/2022 5:03 AM [facility] Mean Corpuscular Volume 88.3 80.0 - 100.0 fL 05/22/2022 5:03 AM [facility] Mean Corpuscular Hemoglobin 27.8 26.0 - 34.0 pg 05/22/2022 5:03 AM [facility] Mean Corpuscular HGB Conc 31.5 31.0 - 37.0 g/dL 05/22/2022 5:03 AM [facility] Red Cell Distribution Width-CV 13.9 12.0 - 16.8 % 05/22/2022 5:03 AM [facility] Platelet Count 244 140 - 440 10*3/uL 05/22/2022 5:03 AM [facility] Mean Platelet Volume 10.0 8.4 - 12.4 fL 05/22/2022 5:03 AM [facility] Diff Type Hospital CBC w/AutoDiff (arb'U) 05/22/2022 5:03 AM [facility] Neutrophils % 75.4 45 - 80 % 05/22/2022 5:03 AM [facility] Lymphocyte % 14.7(L) 15 - 50 % 05/22/2022 5:03 AM [facility] Monocyte % 6.7 0 - 15 % 05/22/2022 5:03 AM [facility] Eosinophil% 1.5 0 - 7 % 05/22/2022 5:03 AM [facility] BASO% 0.4 0 - 2 % 05/22/2022 5:03 AM [facility] Immature Granulocyte% 1.3(H) 0.0 - 1.0 % 05/22/2022 5:03 AM EDT [facility] Nucleated RBC % 0 0 /100(WBC) 05/22/2022 5:03 AM EDT [facility] Neutrophil Abs 7.09 2.0 - 8.8 10*3/uL 05/22/2022 5:03 AM EDT [facility] Lymphocyte-Absol [place] 1.38 0.7 - 5.5 10*3/uL 05/22/2022 5:03 AM EDT [facility] Monocyte Absolute 0.63 0.0 - 1.7 10*3/uL 05/22/2022 5:03 AM EDT [facility] EOS-Absolute 0.14 0.0 - 0.8 10*3/uL 05/22/2022 5:03 AM EDT [facility] Basophil Abs 0.04 0.0 - 0.2 10*3/uL [facility] Granul[facility] Abs 0.12(H) 0.00 - 0.10 10*3/uL 05/22/2022 5:03 AM [facility] Whole Blood BLOOD SPECIMEN FROM PATIENT / Unknown 05/22/2022 4:44 AM EDT 05/22/2022 4:52 AM EDT us Enedina Chavis MD LAB BLOOD ORDERABLES Final Result [facility] ([id number]) [address] [place] [address] [facility] [address] [place] [address] * (ABNORMAL) Magnesium (05/22/2022 4:44 AM EDT) Only the most recent of5 resultswithin the time period is included. Magnesium 1.5(L) 1.6 - 2.6 mg/dL 05/22/2022 5:09 AM T [facility] Plasma BLOOD SPECIMEN FROM PATIENT / Unknown 05/22/2022 4:44 AM EDT 05/22/2022 4:52 AM EDT us Luz Kumari MD LAB BLOOD ORDERABLES Final Result [facility] ([id number]) [address] [place] [address] [facility] [address] [place] [address] * (ABNORMAL) Basic Metabolic Panel (BMP) (05/22/2022 4:44 AM EDT) Only the most recent of5 resultswithin the time period is included. Sodium 137 136 - 145 mmol/L 05/22/2022 5:10 AM T [facility] Comment: (note) Excess protein and/or lipids can falsely decrease sodium levels (pseudo hyponatremia). Potassium 3.9 3.5 - 5.1 mmol/L 05/22/2022 5:10 AM EDT [facility] Chloride 107 98 - 107 mmol/L 05/22/2022 5:10 AM [facility] Comment: (note) Falsely elevated chloride levels can be seen in patients taking medications which contain bromide. Carbon Dioxide 23 22 - 29 mmol/L 05/22/2022 5:10 AM [facility] Anion Gap 7 5 - 13 (arb'U) 05/22/2022 5:10 AM [facility] Comment: (note) Calculation- Na - (Cl + CO2) Glucose 155(H) 71 - 139 mg/dL 05/22/2022 5:10 AM [facility] Comment: (note) Reference range based on inpatient hypo/hyperglycemic treatment levels. A random glucose =/>200 is concerning for poor control. Blood Urea Nitrogen (BUN) 17 8 - 26 mg/dL 05/22/2022 5:10 AM EDT [facility] Creatinine-Bloo d 0.48(L) 0.73 - 1.18 mg/dL 05/22/2022 5:10 AM [facility] BUN/Creatinine Ratio 35.4 RATIO 05/22/2022 5:10 AM [facility] Estimated GFR >60 >60 /1.73 m2 05/22/2022 5:10 AM EDT [facility] Comment: (note) Results do not take into account body mass. Valid for patients 18 to 70 years of age. Estimated GFR if -Lissy n >60 >60 /1.73 m2 05/22/2022 5:10 AM EDT [facility] Comment: (note) Results do not take into account body mass. Valid for patients 18 to 70 years of age. Calcium 7.9(L) 8.4 - 10.2 mg/dL 05/22/2022 5:10 AM EDT [facility] Plasma BLOOD SPECIMEN FROM PATIENT / Unknown 05/22/2022 4:44 AM EDT 05/22/2022 4:52 AM EDT us Enedina Chavis MD LAB BLOOD ORDERABLES Final Result [facility] ([id number]) [address] [place] [place] [id number] [facility] [address] [place] [address] * Echo Doppler 2D Mmode Color Complete (05/21/2022 3:26 PM EDT) 05/21/2022 2:54 PM EDT [facility]ative [facility] 05/21/2022 6:45 PM EDT REVIEWING YOUR TEST RESULTS IN [facility] IS NOT A SUBSTITUTE FOR DISCUSSING THOSE RESULTS WITH YOUR HEALTH CARE PROVIDER. PLEASE CONTACT YOUR PROVIDER VIA [facility] TO DISCUSS ANY QUESTIONS OR CONCERNS YOU MAY HAVE REGARDING THESE TEST RESULTS. CARDIOLOGY REPORT FACILITY: [facility] PATIENT NAME/: VITALY CASILLAS 1955 UNIT/AGE/GENDER: AGE: 67 YR GENDER: M UNIT NUMBER: [id number] ACCESSION NUMBER: [id number] DATE OF EXAM: 05/21/2022 14:54 EXAMINATION(S): ECHO DOPPLER 2D MMODE SPECT COLOR COMPLETE FINAL REPORT Procedure Information Procedure type: Echo Proc. sub type: TTE procedure: ECHO DOPPLER 2D MMODE SPECT COLOR COMPLETE. Start date time: 05/21/2022 Blood pressure: 118 / 60 mmHg Contrast medium: Lumason Accession no: [id number] Procedure Staff Referring Physician: Enedina Chaves [employer] Generator Assembler: Kiki Harper Interpreting Physician: *[employer] Supervisor Bennie Montano Clinical Indications Syncope. Physician Conclusions Any valve disease noted in the report is non-rheumatic unless otherwise specifically noted. Summary: The ejection fraction biplane was calculated at 55%. Intravenous contrast was used to enhance endocardial border definition. The left ventricular chamber size, and systolic function are within normal limits. There are no regional wall motion abnormalities observed. Mild concentric left ventricular hypertrophy. Abnormal left ventricular diastolic filling consistent with impaired relaxation. Mitral valve tissue Doppler E/E'' ratio consistent with normal left atrial pressures. Mildly dilated left atrium. Mitral annular calcification. Findings Left Ventricle: The ejection fraction biplane was calculated at 55%. Intravenous contrast was used to enhance endocardial border definition. The left ventricular chamber size, and systolic function are within normal limits. There are no regional wall motion abnormalities observed. Mild concentric left ventricular hypertrophy. Abnormal left ventricular diastolic filling consistent with impaired relaxation. Mitral valve tissue Doppler E/E'' ratio consistent with normal left atrial pressures. Left Atrium: Mildly dilated left atrium. Right Ventricle: The right ventricular chamber size and systolic function are within normal limits. Right Atrium: The right atrial chamber size appears normal. Aortic Valve: Individual aortic valve leaflets are not clearly visualized. There is no evidence of aortic stenosis noted. No evidence of aortic valve regurgitation. Mitral Valve: Mitral annular calcification. No evidence of mitral valve stenosis. No evidence of mitral regurgitation. Tricuspid Valve: Tricuspid valve was not well visualized. No evidence of tricuspid stenosis. No tricuspid regurgitation. Pulmonic Valve: The pulmonic valve is not adequately visualized but Doppler appears normal. Pericardium: There is no evidence of pericardial effusion. Aorta/Great Vessels: Aortic root dimension within normal limits. 2D Measurements LV Diastolic dimension: 4.7 cm LV Systolic dimension: 3.8 cm 2D septum diastolic: 1.3 cm LV Area systolic: 27.7 cm^2 2D post wall diastolic: 1.2 cm LVESV : 64.6 ml LV Area diastolic: 42.9 cm^2 LVESVI: 30.8 ml/m^2 LVEDV: 143 ml LV RWT: 0.51 LVEDVI : 68.2 ml/m^2 FS: 19 % EF Calculated: 55 % LV SV (Teich): 40 ml LV mass (ASE formula): 224.8 g LVOT diameter: 2.1 cm LV mass index: 107.2 g/m^2 LA volume: 51.4 ml LV length: 9.9 cm LA volume index: 24.5 ml/m^2 LA diameter (2D): 4.5 cm TAPSE: 2.5 cm LA/Aorta (2D): 1.32 RA area: 18.3 cm^2 RV Diastolic dimension: 3.4 cm RA area index: 8.7 cm^2/m^2 Aortic root (2D): 3.4 cm RA volume: 47.8 ml Sinotubular junction: 3.5 cm RA volume index: 22.8 ml/m^2 ST junction index: 2.1 cm/m IVC inspiration: 0.7 cm Ascending aorta: 3.6 cm IVC expiration: 1.4 cm Ascending aorta index: 2.1 cm/m Doppler Measurements and Calculations MV Peak E-wave: 0.67 m/s MV Peak A-wave: 0.91 m/s MV E' septal velocity: 0.067 m/s E/A ratio: 0.74 MV E/E' septal: 9.99 MV E' lateral velocity: 0.093 m/s MV E/E' Average: 8.63 MV E/E' lateral: 7.28 Procedure Note Bennie Vázquez MD - 05/21/2022 REVIEWING YOUR TEST RESULTS IN [facility] IS NOT A SUBSTITUTE FORDISCUSSING THOSE RESULTS WITH YOUR HEALTH CARE PROVIDER. PLEASE CONTACT YOUR PROVIDER VIA [facility] TO DISCUSS ANY QUESTIONS ORCONCERNS YOU MAY HAVE REGARDING THESE TEST RESULTS. CARDIOLOGY REPORT FACILITY: [facility] PATIENT NAME/: VITALY CASILLAS 1955 UNIT/AGE/GENDER: AGE: 67 YR GENDER: M UNIT NUMBER: [id number] ACCESSION NUMBER: [id number] DATE OF EXAM: 05/21/2022 14:54 EXAMINATION(S): ECHO DOPPLER 2D MMODE SPECT COLOR COMPLETE FINAL REPORT ProcedureInformation Procedure type: Echo Proc. sub type: TTE procedure: ECHO DOPPLER 2D MMODE SPECT COLORCOMPLETE. Start date time: 05/21/2022 Bloodpressure: 118 / 60 mmHg Contrast medium: Lumason Accession no: [id number] Procedure Staff Referring Physician: Enedina Chaves [employer] Assembler: Kiki Harper Interpreting Physician: *[employer] [employer] Supervisor Bennie Montano Clinical Indications Syncope. Physician Conclusions Any valve disease noted in the report is non-rheumatic unless otherwisespecifically noted. Summary: The ejection fraction biplane was calculated at55%. Intravenous contrast was used to enhanceendocardial border definition. The left ventricular chamber size, and systolicfunction are within normal limits. There are no regional wall motion abnormalities observed. Mild concentric left ventricular hypertrophy. Abnormal left ventricular diastolic fillingconsistent with impaired relaxation. Mitral valve tissue Doppler E/E'' ratioconsistent with normal left atrial pressures. Mildly dilated left atrium. Mitral annular calcification. Findings Left Ventricle: The ejection fraction biplane was calculated at55%. Intravenous contrast was used to enhanceendocardial border definition. The left ventricular chamber size, and systolicfunction are within normal limits. There are no regional wall motion abnormalities observed. Mild concentric left ventricular hypertrophy. Abnormal left ventricular diastolic fillingconsistent with impaired relaxation. Mitral valve tissue Doppler E/E'' ratioconsistent with normal left atrial pressures. Left Atrium: Mildly dilated left atrium. Right Ventricle: The right ventricular chamber size and systolicfunction are within normal limits. Right Atrium: The right atrial chamber size appears normal. Aortic Valve: Individual aortic valve leaflets are not clearlyvisualized. There is no evidence of aortic stenosis noted. No evidence of aortic valve regurgitation. Mitral Valve: Mitral annular calcification. No evidence of mitral valve stenosis. No evidence of mitral regurgitation. Tricuspid Valve: Tricuspid valve was not well visualized. No evidence of tricuspid stenosis. No tricuspid regurgitation. Pulmonic Valve: The pulmonic valve is not adequately visualizedbut Doppler appears normal. Pericardium: There is no evidence of pericardial effusion. Aorta/Great Vessels: Aortic root dimension within normal limits. 2D Measurements LV Diastolic dimension: 4.7 cm LVSystolic dimension: 3.8 cm 2D septum diastolic: 1.3 cm LVArea systolic: 27.7 cm^2 2D post wall diastolic: 1.2 cmLVESV : 64.6 ml LV Area diastolic: 42.9 cm^2LVESVI: 30.8 ml/m^2 LVEDV: 143 ml LVRWT: 0.51 LVEDVI : 68.2 ml/m^2 FS:19 % EF Calculated: 55 % LVSV (Teich): 40 ml LV mass (ASE formula): 224.8 g LVOTdiameter: 2.1 cm LV mass index: 107.2 g/m^2 LAvolume: 51.4 ml LV length: 9.9 cm LAvolume index: 24.5 ml/m^2 LA diameter (2D): 4.5 cmTAPSE: 2.5 cm LA/Aorta (2D): 1.32 RAarea: 18.3 cm^2 RV Diastolic dimension: 3.4 cm RAarea index: 8.7 cm^2/m^2 Aortic root (2D): 3.4 cm RAvolume: 47.8 ml Sinotubular junction: 3.5 cm RAvolume index: 22.8 ml/m^2 ST junction index: 2.1 cm/m IVCinspiration: 0.7 cm Ascending aorta: 3.6 cm IVCexpiration: 1.4 cm Ascending aorta index: 2.1 cm/m Doppler Measurements and Calculations MV Peak E-wave: 0.67 m/s MVPeak A-wave: 0.91 m/s MV E' septal velocity: 0.067 m/s E/Aratio: 0.74 MV E/E' septal: 9.99 MVE' lateral velocity: 0.093 m/s MV E/E' Average: 8.63 MVE/E' lateral: 7.28 Electronically signed by Bennie Vázquez (Interpreting Physician) on05/21/2022 at 6:44 PM us Enedina Chavis MD CV ECHO ORDERABLES Final Re sult [facility] * CT Angiogram Neck (05/21/2022 6:21 AM EDT) Anatomical Region Laterality Modality Neck Computed Tomogra phy 05/21/2022 8:35 AM EDT Narrative 05/21/2022 8:41 AM EDT REVIEWING YOUR TEST RESULTS IN [facility] IS NOT A SUBSTITUTE FOR DISCUSSING THOSE RESULTS WITH YOUR HEALTH CARE PROVIDER. PLEASE CONTACT YOUR PROVIDER VIA [employer] TO DISCUSS ANY QUESTIONS OR CONCERNS YOU MAY HAVE REGARDING THESE TEST RESULTS. RADIOLOGY REPORT FACILITY: [facility] UNIT/AGE/GENDER: Tracy.ICU IN AGE:67 Y SEX:M PATIENT NAME/: VITALY CASILLAS LAYNE 1955 UNIT NUMBER: [id number] ACCESSION NUMBER: [id number] CTA Head CTA Neck Examination Date: 05/21/2022 CLINICAL HISTORY: unresponsiveness Comparison: MRI brain April 03, 2022 TECHNIQUE: Helical CT images of the head head and neck are provided after the administration of IV contrast. Images were obtained in the arterial phase. 3-D reformations performed on a separate workstation are provided for review. NASCET criteria was used to calculate percentage of stenosis. Dose reduction technique was utilized per ALARA protocol. HEAD FINDINGS: ICAs: Mild atherosclerosis without significant stenosis. MCAs: Unremarkable. ACAs: Unremarkable. Posterior Communicating Arteries: Not seen bilaterally. Vertebral and Basilar Arteries: Codominant. No significant stenosis. car cooper: Unremarkable. Superior Cerebellar and PICAs: Patent proximally. IMPRESSION: No arterial occlusion, significant stenosis or aneurysm. NECK FINDINGS: Arch: 2 vessel arch branching. Mild narrowing of the proximal left subclavian due to atherosclerosis. CCAs: Patent bilaterally. ICAs: *Right: Mild plaque of the right carotid bifurcation and proximal right ICA with mild stenosis. *Left: Mild atherosclerotic plaque of the left carotid bifurcation and proximal left ICA with mild stenosis. Vertebral Arteries: No significant stenosis. Other: Included lung apices are grossly clear. No acute abnormality of the included soft tissues. 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 IMPRESSION: No significant stenosis of the cervical carotid or vertebral arteries. Mild atherosclerosis. Dictated by: Car Lynn M.D. Images and Report reviewed and interpreted by: Car Lynn M.D. <PS><Electronically signed by: Car Lynn M.D.> 05/21/2022 [id number] [id number] Procedure Note Car Lynn MD - 05/21/2022 REVIEWING YOUR TEST RESULTS IN [facility] IS NOT A SUBSTITUTE FORDISCUSSING THOSE RESULTS WITH YOUR HEALTH CARE PROVIDER. PLEASE CONTACT YOUR PROVIDER [facility]IA [facility] TO DISCUSS ANY QUESTIONS ORCONCERNS YOU MAY HAVE REGARDING THESE TEST RESULTS. RADIOLOGY REPORT FACILITY: [facility] UNIT/AGE/GENDER: J.ICU IN AGE:67 Y SEX:M PATIENT NAME/: VITALY CASILLAS LAYNE 1955 UNIT NUMBER: [id number] ACCESSION NUMBER: [id number] CTA Head CTA Neck Examination Date: 05/21/2022 CLINICAL HISTORY: unresponsiveness Comparison: MRI brain April 03, 2022 TECHNIQUE: Helical CT images of the head head and neck are provided afterthe administration of IV contrast. Images were obtained in the arterialphase. 3-D reformations performed on a separate workstation are providedfor review. NASCET criteria was used to calculate percentage of stenosis. Dose reduction technique wasutilized per ALARA protocol. HEAD FINDINGS: ICAs: Mild atherosclerosis without significant stenosis. MCAs: Unremarkable. ACAs: Unremarkable. Posterior Communicating Arteries: Not seen bilaterally. Vertebral and Basilar Arteries: Codominant. No significant stenosis. car cooper: Unremarkable. Superior Cerebellar and PICAs: Patent proximally. IMPRESSION: No arterial occlusion, significant stenosis or aneurysm. NECK FINDINGS: Arch: 2 vessel arch branching. Mild narrowing of the proximal leftsubclavian due to atherosclerosis. CCAs: Patent bilaterally. ICAs: *Right: Mild plaque of the right carotid bifurcation and proximal rightICA with mild stenosis. *Left: Mild atherosclerotic plaque of the left carotid bifurcation andproximal left ICA with mild stenosis. Vertebral Arteries: No significant stenosis. Other: Included lung apices are grossly clear. No acute abnormality of theincluded soft tissues. Ossification of the posterior longitudinal ligamentat C3-C4 results in severe canal stenosis. IMPRESSION: No significant stenosis of the cervical carotid or vertebral arteries.Mild atherosclerosis. Dictated by: Car Lynn M.D. Images and Report reviewed and interpreted by: Car Lynn M.D. <PS><Electronically signed by: Car Lynn M.D.> 05/21/202240 [id number] us Cinthia Snell SLASHER TENDER HELPER IMG CT ORDERABLES Final Re sult * CT Angiogram Head (05/21/2022 6:21 AM EDT) Anatomical Region Laterality Modality Head Computed Tomogra phy 05/21/2022 8:35 AM EDT Narrative 05/21/2022 8:41 AM EDT REVIEWING YOUR TEST RESULTS IN [facility] IS NOT A SUBSTITUTE FOR DISCUSSING THOSE RESULTS WITH YOUR HEALTH CARE PROVIDER. PLEASE CONTACT YOUR PROVIDER VIA [employer] TO DISCUSS ANY QUESTIONS OR CONCERNS YOU MAY HAVE REGARDING THESE TEST RESULTS. RADIOLOGY REPORT FACILITY: [facility] UNIT/AGE/GENDER: J.ICU IN AGE:67 Y SEX:M PATIENT NAME/: VITALY CASILLAS LAYNE 1955 UNIT NUMBER: [id number] ACCESSION NUMBER: [id number] CTA Head CTA Neck Examination Date: 05/21/2022 CLINICAL HISTORY: unresponsiveness Comparison: MRI brain April 03, 2022 TECHNIQUE: Helical CT images of the head head and neck are provided after the administration of IV contrast. Images were obtained in the arterial phase. 3-D reformations performed on a separate workstation are provided for review. NASCET criteria was used to calculate percentage of stenosis. Dose reduction technique was utilized per ALARA protocol. HEAD FINDINGS: ICAs: Mild atherosclerosis without significant stenosis. MCAs: Unremarkable. ACAs: Unremarkable. Posterior Communicating Arteries: Not seen bilaterally. Vertebral and Basilar Arteries: Codominant. No significant stenosis. car cooper: Unremarkable. Superior Cerebellar and PICAs: Patent proximally. IMPRESSION: No arterial occlusion, significant stenosis or aneurysm. NECK FINDINGS: Arch: 2 vessel arch branching. Mild narrowing of the proximal left subclavian due to atherosclerosis. CCAs: Patent bilaterally. ICAs: *Right: Mild plaque of the right carotid bifurcation and proximal right ICA with mild stenosis. *Left: Mild atherosclerotic plaque of the left carotid bifurcation and proximal left ICA with mild stenosis. Vertebral Arteries: No significant stenosis. Other: Included lung apices are grossly clear. No acute abnormality of the included soft tissues. 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 IMPRESSION: No significant stenosis of the cervical carotid or vertebral arteries. Mild atherosclerosis. Dictated by: Car Lynn M.D. Images and Report reviewed and interpreted by: Car Lynn M.D. <PS><Electronically signed by: Car Lynn M.D.> 05/21/2022 0840 [id number] 0835 Procedure Note Car Lynn MD - 05/21/2022 REVIEWING YOUR TEST RESULTS IN [facility] IS NOT A SUBSTITUTE FORDISCUSSING THOSE RESULTS WITH YOUR HEALTH CARE PROVIDER. PLEASE CONTACT YOUR PROVIDER [facility]IA [facility] TO DISCUSS ANY QUESTIONS ORCONCERNS YOU MAY HAVE REGARDING THESE TEST RESULTS. RADIOLOGY REPORT FACILITY: [facility] UNIT/AGE/GENDER: J.ICU IN AGE:67 Y SEX:M PATIENT NAME/: VITALY CASILLAS LAYNE 1955 UNIT NUMBER: [id number] ACCESSION NUMBER: [id number] CTA Head CTA Neck Examination Date: 05/21/2022 CLINICAL HISTORY: unresponsiveness Comparison: MRI brain April 03, 2022 TECHNIQUE: Helical CT images of the head head and neck are provided afterthe administration of IV contrast. Images were obtained in the arterialphase. 3-D reformations performed on a separate workstation are providedfor review. NASCET criteria was used to calculate percentage of stenosis. Dose reduction technique wasutilized per ALARA protocol. HEAD FINDINGS: ICAs: Mild atherosclerosis without significant stenosis. MCAs: Unremarkable. ACAs: Unremarkable. Posterior Communicating Arteries: Not seen bilaterally. Vertebral and Basilar Arteries: Codominant. No significant stenosis. car cooper: Unremarkable. Superior Cerebellar and PICAs: Patent proximally. IMPRESSION: No arterial occlusion, significant stenosis or aneurysm. NECK FINDINGS: Arch: 2 vessel arch branching. Mild narrowing of the proximal leftsubclavian due to atherosclerosis. CCAs: Patent bilaterally. ICAs: *Right: Mild plaque of the right carotid bifurcation and proximal rightICA with mild stenosis. *Left: Mild atherosclerotic plaque of the left carotid bifurcation andproximal left ICA with mild stenosis. Vertebral Arteries: No significant stenosis. Other: Included lung apices are grossly clear. No acute abnormality of theincluded soft tissues. Ossification of the posterior longitudinal ligamentat C3-C4 results in severe canal stenosis. IMPRESSION: No significant stenosis of the cervical carotid or vertebral arteries.Mild atherosclerosis. Dictated by: Car Lynn M.D. Images and Report reviewed and interpreted by: Car Lynn M.D. <PS><Electronically signed by: Car Lynn M.D.> 05/21/202240 [phone] us Cinthia Snell SLASHER TENDER HELPER IMG CT ORDERABLES Final Re sult * Phosphorus (05/21/2022 4:32 AM EDT) Only the most recent of2 resultswithin the time period is included. Phosphorus 3.8 2.3 - 4.7 mg/dL 05/21/2022 5:21 AM EDT [facility] Plasma BLOOD SPECIMEN FROM PATIENT / Unknown 05/21/2022 4:32 AM EDT 05/21/2022 4:56 AM EDT us Enedina Chavis MD LAB BLOOD ORDERABLES Final Result [facility] ([id number]) [address] [place] [address] [facility] [address] [place] [address] * Holter Monitor Placement (05/20/2022 5:53 PM EDT) 05/20/2022 5:12 PM EDT Narrative [facility] - 05/22/2022 10:39 PM EDT REVIEWING YOUR TEST RESULTS IN [facility] IS NOT A SUBSTITUTE FOR DISCUSSING THOSE RESULTS WITH YOUR HEALTH CARE PROVIDER. PLEASE CONTACT YOUR PROVIDER VIA [employer] TO DISCUSS ANY QUESTIONS OR CONCERNS YOU MAY HAVE REGARDING THESE TEST RESULTS. CARDIOLOGY REPORT FACILITY: [facility] PATIENT NAME/: VITALY CASILLAS 1955 UNIT/AGE/GENDER: AGE: 67 YR GENDER: M UNIT NUMBER: [id number] ACCESSION NUMBER: [id number] DATE OF EXAM: 05/20/2022 17:12 EXAMINATION(S): HOLTER MONITOR PLACEMENT FINAL REPORT Procedure: Holter Report Indications: SYNCOPE, UNRESPONSIVENESS Symptoms: NO DIARY RETURNED Study Conclusions: The predominant rhythm was normal sinus rhythm. The minimum heart rate was 44 bpm and the maximal heart rate was 104 bpm. The average heart rate was 59 bpm. Occasional ventricular ectopics with a total of 1089 beats. There were 3 ventricular couplets with 2 triplets. There was a 5 beat run of ventricular tachycardia with a maxium HR of 126 bpm. Rare supraventricular ectopics with a total of 153 beats with 2 atrial couplets and 2 runs of SVT with the longest duration 4 beats and the maximum rate 126 bpm. No episodes of atrial fibrillation were noted. No AV block or significant pauses were noted. No significant ST segment shifts noted. A diary was not returned. Conclusion: Abnormal Holter. This study demonstrates sinus rhythm with occassional PVC's, rare ventricular couplets and triplets and a single 5 beat run of VT. Rare supraventricular ectopics were noted with rare atrial couplets with short runs of SVT. No atrial fibrillation was noted. Vlad Tony MD Electronically signed by Tyree Tony M.D. 05/22/2022 22:39 Procedure Note Tyree Tony MD - 05/22/2022 REVIEWING YOUR TEST RESULTS IN [facility] IS NOT A SUBSTITUTE FORDISCUSSING THOSE RESULTS WITH YOUR HEALTH CARE PROVIDER. PLEASE CONTACT YOUR PROVIDER VIA [employer] TO DISCUSS ANY QUESTIONS ORCONCERNS YOU MAY HAVE REGARDING THESE TEST RESULTS. CARDIOLOGY REPORT FACILITY: [facility] PATIENT NAME/: VITALY CASILLAS 1955 UNIT/AGE/GENDER: AGE: 67 YR GENDER: M UNIT NUMBER: [id number] ACCESSION NUMBER: [id number] DATE OF EXAM: 05/20/2022 17:12 EXAMINATION(S): HOLTER MONITOR PLACEMENT FINAL REPORT Procedure: Holter Report Indications: SYNCOPE, UNRESPONSIVENESS Symptoms: NO DIARY RETURNED Study Conclusions: The predominant rhythm was normal sinus rhythm. The minimum heart rate was 44 bpm and the maximal heart rate was 104 bpm.The average heart rate was 59 bpm. Occasional ventricular ectopics with a total of 1089 beats. There were 3ventricular couplets with 2 triplets. There was a 5 beat run ofventricular tachycardia with a maxium HR of 126 bpm. Rare supraventricular ectopics with a total of 153 beats with 2 atrialcouplets and 2 runs of SVT with the longest duration 4 beats and themaximum rate 126 bpm. No episodes of atrial fibrillation were noted. No AV block or significant pauses were noted. No significant ST segment shifts noted. A diary was not returned. Conclusion: Abnormal Holter. This study demonstrates sinus rhythm withoccassional PVC's, rare ventricular couplets and triplets and a single 5beat run of VT. Rare supraventricular ectopics were noted with rare atrialcouplets with short runs of SVT. No atrial fibrillation was noted. Vlad Tony MD Electronically signed by Tyree Tony M.D. 05/22/2022 22:39 Lissette Orlandoangus Richardshodaryl DO CV CARDIAC SERVICES ORDE NOEL Final Result [facility] * EKG 12 lead (05/20/2022 5:02 PM EDT) 05/20/2022 5:02 PM EDT Narrative [facility] - 05/21/2022 8:39 AM EDT CARDIOLOGY REPORT FACILITY: [facility] PATIENT NAME/: VITALY CASILLAS 1955 UNIT/AGE/GENDER: AGE: 67 YR GENDER: M UNIT NUMBER: [id number] ACCESSION NUMBER: [id number] DATE OF EXAM: 05/20/2022 17:02 EXAMINATION(S): ECG 12-LEAD FINAL REPORT Procedure: ELECTROCARDIOGRAM RESULT Heart Rate 56 P-R Interval 140 ms QRS Interval 110 ms QT Interval 468 ms QTC Interval 452 ms P [place] 22 deg QRS [place] 21 deg T Wave [place] 7 deg DATE: 05/20/2022 17:02 SINUS BRADYCARDIA NONSPECIFIC INTRAVENTRICULAR CONDUCTION DELAY Summary: Abnormal ECG Electronically signed by Dominick Murphy 05/21/2022 08:39 Procedure Note Jeffrey Tan MD - 05/21/2022 CARDIOLOGY REPORT FACILITY: [facility] PATIENT NAME/: VITALY CASILLAS 1955 UNIT/AGE/GENDER: AGE: 67 YR GENDER: M UNIT NUMBER: [id number] ACCESSION NUMBER: [id number] DATE OF EXAM: 05/20/2022 17:02 EXAMINATION(S): ECG 12-LEAD FINAL REPORT Procedure: ELECTROCARDIOGRAM RESULT Heart Rate 56 P-R Interval 140 ms QRS Interval 110 ms QT Interval 468 ms QTC Interval 452 ms P [place] 22 deg QRS [place] 21 deg T Wave [place] 7 deg DATE: 05/20/2022 17:02 SINUS BRADYCARDIA NONSPECIFIC INTRAVENTRICULAR CONDUCTION DELAY Summary: Abnormal ECG Electronically signed by Dominick Murphy 05/21/2022 08:39 us Julio Wharton MD ECG ORDERABLES Final Result [facility] * 20 min. EEG routine Normal Sleep (05/20/2022 2:58 PM EDT) Narrative [facility] - 05/20/2022 2:58 PM EDT Tyree Donovan MD 05/20/2022 3:04 PM ADULT ELECTROENCEPHALOGRAM REPORT FACILITY: [facility] AGE/GENDER: 67 yr/o male PATIENT NAME/: Vitaly Casillas 1955 PROCEDURE DATE: 05/20/2022 EXAM# : [id number] CLINICAL INFORMATION: AMS RECORDING CONDITIONS: This is a routine EEG.This EEG was performed utilizing standard International 10-20 System of electrode placement, with additional channels monitored for eye movement. One channel electrocardiogram was monitored. Data were obtained, stored, and interpreted according to ACNS guidelines (J Clin Neurophysiol 2006;23(2):85-183) utilizing referential montage recording, with reformatting to longitudinal, transverse bipolar, and referential montages as necessary for interpretation, along with digital/automated EEG analysis. The patient tolerated entire procedure without difficulty. Results of this inpatient EEG were conveyed to the consulting neurologist at the time of interpretation. E.E.G. DESCRIPTION: An awake background of 6-7 Hz was noted. Intermittent generalized theta-delta slowing was noted. Excess generalized theta-delta slowing was noted. Minor muscle, motion, and eye movement artifacts were occasionally noted. E.E.G. INTERPRETATION: Abnormal EEG due to: 1) Theta range background slowing 2) Intermittent generalized theta-delta slowing 3) Excess generalized theta-delta slowing CLINICAL CORRELATION:This EEG is suggestive of a mild-moderate encephalopathy but is nonspecific as to etiology. The absence of epileptiform abnormalities does not preclude a clinical diagnosis of seizures. Tyree Donovan II, MD [facility] Lissette Perry Handshoe DO NEUROLOGY ORDERABLES Fin al Result [facility] * (ABNORMAL) .Urinalysis with microscopic, reflex culture (05/20/2022 6:34 AM EDT) Only the most recent of2 resultswithin the time period is included. Color-Urine Yellow 05/20/2022 7:02 AM [facility] Clarity-Urine Clear 05/20/2022 7:02 AM [facility] Specific [place] Urine 1.034(H) 1.005 - 1.030 (arb'U) 05/20/2022 7:02 AM [facility] Comment:Elevated specific gr avity may be seen when urine contains x ray contrast media, plasma expanders, and/or large amounts of glucose or protein. Correlate specific gravity findings to patient clinical history. pH-Urine 8.5 5.0 - 9.0 (pH) 05/20/2022 7:02 AM [facility] Protein-Urine 600(A) Negative mg/dL 05/20/2022 7:02 AM [facility] Glucose-Urine 50(A) Negative mg/dL 05/20/2022 7:02 AM [facility] Ketone-Urine Negative Negative mg/dL 05/20/2022 7:02 AM [facility] Bilirubin-Urine Negative Negative mg/dL 05/20/2022 7:02 AM [facility] Occult Blood-Urine 1+(A) Negative (arb'U) 05/20/2022 7:02 AM [facility] Nitrite-Urine Negative Negative (arb'U) 05/20/2022 7:02 AM [facility] Urobilinogen-Uri ne Normal Normal (EhrlichU)/ dL 05/20/2022 7:02 AM [facility] Leukocyte Esterase-Urine 25(A) Negative (arb'U) 05/20/2022 7:02 AM [facility] Source-Urine Urine [place] Cath 05/20/2022 5:22 AM [facility] WBC-Urine 40(H) 0 - 3 (HPF) 05/20/2022 7:02 AM [facility] RBC-Urine 45(H) 0 - 2 (HPF) 05/20/2022 7:02 AM [facility] Squamous Epithelial-Urine <1 0 - 4 (HPF) 05/20/2022 7:02 AM [facility] Bacteria-Urine TRACE(A) None Seen (HPF) 05/20/2022 7:02 AM [facility] Mucus-Urine TRACE(A) None Seen (LPF) 05/20/2022 7:02 AM [facility] Transitional Epithelial-Urine <1 0 - 2 (HPF) 05/20/2022 7:02 AM [facility] Urine URINE SPECIMEN / Unknown 05/20/2022 6:34 AM EDT 05/20/2022 6:50 AM EDT us Luz Kumari MD URINE ORDERABLES Becca lynne Result [facility] ([id number]) [address] [place] [address] [facility] [address] [place] [address] * (ABNORMAL) Toxicology Screen, urine (05/20/2022 6:34 AM EDT) Amphetamines-Urine Scrn Negative Negative 05/20/2022 7:04 AM T [facility] Comment: Screening cut off 500ng/mL. (note) Testing for medical purposes only. Positive results are not automatically confirmed. This assay has poor sensitivity for methylphenidate (eg Ritalin), a methylphenidate specific assay is needed to monitor compliance with these medications. Barbiturates-Urine Screen POSITIVE(A) Negative 05/20/2022 7:04 AM T [facility] Comment: Screening cut off 200ng/mL. (note) Testing for medical purposes only. Positive results are not automatically confirmed. Benzodiazepines-Ur ine Screen POSITIVE(A) Negative 05/20/2022 7:04 AM [facility] Comment: Screening cut off 200ng/mL. (note) Testing for medical purposes only. Positive results are not automatically confirmed. Cannabinoids-Urine Screen Negative Negative 05/20/2022 7:04 AM [facility] Comment: Screening cut off 50ng/mL. (note) Testing for medical purposes only. Positive results are not automatically confirmed. Cocaine-Urine Screen Negative Negative 05/20/2022 7:04 AM [facility] Comment: Screening cut off 300ng/mL. (note) Testing for medical purposes only. Positive results are not automatically confirmed. Opiates-Urine Screen Negative Negative 05/20/2022 7:04 AM [facility] Comment: Screening cut off 300ng/mL. (note) Testing for medical purposes only. Positive results are not automatically confirmed unless specifically requested. This assay has poor sensitivity for synthetic opioids like oxycodone and oxymorphone.. An oxycodone specific assay should be used to monitor compliance with these medications Urine URINE SPECIMEN / Unknown 05/20/2022 6:34 AM EDT 05/20/2022 6:50 AM EDT us Luz Kumari MD URINE ORDERABLES Becca lynne Result [facility] ([id number]) [address] [place] [address] [facility] [address] [place] [address] * Culture,Urine (05/20/2022 6:34 AM EDT) Special Requests Urine (arb'U) 05/23/2022 1:54 PM EDT [facility] Culture Final no growth 05/21/2022 9:32 AM EDT [facility] Urine 05/20/2022 6:34 AM EDT 05/20/2022 6:50 AM EDT Luz Kumari MD MICROBIOLOGY - GENERA L ORDERABLES Final Result [facility] [address] [facility] [address] [place] [id number] [facility] [address] [facility] [address] [place] [address] * (ABNORMAL) Lactic Acid (05/20/2022 4:33 AM EDT) Pathologist [facility] Lactic Acid 2.2(H) 0.7 - 2.0 mmol/L 05/20/2022 4:38 AM EDT [facility] RT Serum BLOOD SPECIMEN FROM PATIENT / Unknown 05/20/2022 4:33 AM EDT 05/20/2022 4:32 AM EDT us Luz Kumari MD LAB BLOOD ORDERABLES Final Result [facility] [address] [place] [address], [facility] [phone] [facility] [address] [place] [address] * .Partial Thromboplastin Time (05/20/2022 4:33 AM EDT) Only the most recent of3 resultswithin the time period is included. Partial Thromboplastin Time 25.3 25.1 - 36.5 s 05/20/2022 5:06 AM EDT [facility] Comment: (note) Anticoagulants may alter the results of Laboratory Coagulation assays. New-generation anticoagulants such as direct Thrombin inhibitors (Dabigatran/Pradaxa, Argatroban, Bivalrudin) and direct/indirect factor Xa inhibitors (Rivaroxaban/Xarelto,Apixaban/Eliquis, Danaparoid/Orgaran, Fondaparinux/Arixtra) have been shown to affect the results of Laboratory Coagulation assays, creating falsely elevated or decreased values. Correlation with medication history is advised. Plasma BLOOD SPECIMEN FROM PATIENT / Unknown 05/20/2022 4:33 AM EDT 05/20/2022 4:33 AM EDT Luz Kumari MD LAB BLOOD ORDERABLES Final Result Performing Organization Address [facility] Co de Phone Number [facility] ([phone]) [address] [place] [address] 60 [address] [address] * Troponin (05/20/2022 4:33 AM EDT) [facility] Troponin 0.012 0.000 - 0.028 ng/mL 05/20/2022 4:55 AM EDT [facility] Comment: (note) Levels >0.028 are greater than the 99th percentile and suggest possible need for clinical correlation and serial testing. Plasma BLOOD SPECIMEN FROM PATIENT / Unknown 05/20/2022 4:33 AM EDT 05/20/2022 4:33 AM EDT Luz Kumari MD LAB BLOOD ORDERABLES Final Result Performing Organization Address City/[facility]/ZIP Co de Phone Number [facility] [id number]) [address] [place] [address] [address] * (ABNORMAL) Urinalysis (05/20/2022 4:33 AM EDT) Only the most recent of2 resultswithin the time period is included. Color-Urine Light yellow 05/20/2022 5:03 AM [facility] Clarity-Urine Clear 05/20/2022 5:03 AM [facility] Specific Beverly Urine 1.038(H) 1.005 - 1.030 (arb'U) 05/20/2022 5:03 AM [facility] Comment:Elevated specific gr avity may be seen when urine contains x ray contrast media, plasma expanders, and/or large amounts of glucose or protein. Correlate specific gravity findings to patient clinical history. pH-Urine 8.0 5.0 - 9.0 (pH) 05/20/2022 5:03 AM [facility] Protein-Urine >600(A) Negative mg/dL 05/20/2022 5:03 AM [facility] Glucose-Urine 50(A) Negative mg/dL 05/20/2022 5:03 AM [facility] Ketone-Urine Negative Negative mg/dL 05/20/2022 5:03 AM [facility] Bilirubin-Uri ne Negative Negative mg/dL 05/20/2022 5:03 AM [facility] Occult Blood-Urine 1+(A) Negative (arb'U) 05/20/2022 5:03 AM [facility] Nitrite-Urine Negative Negative (arb'U) 05/20/2022 5:03 AM [facility] Urobilinogen- Urine Normal Normal (EhrlichU)/ dL 05/20/2022 5:03 AM [facility] Leukocyte Esterase-Urin e Negative Negative (arb'U) 05/20/2022 5:03 AM [facility] Source-Urine Urine [place] Cath 05/20/2022 3:45 AM [facility] Reflex Microscopic? Microscopic performed 05/20/2022 5:03 AM [facility] RBC-Urine 47(H) 0 - 2 (HPF) 05/20/2022 5:03 AM [facility] WBC-Urine 30(H) 0 - 3 (HPF) 05/20/2022 5:03 AM EDT [facility] Squamous Epithelial-Ur ine <1 0 - 4 (HPF) 05/20/2022 5:03 AM EDT [facility] Bacteria-Urin e TRACE(A) None Seen (HPF) 05/20/2022 5:03 AM EDT [facility] Urine URINE SPECIMEN / Unknown 05/20/2022 4:33 AM EDT 05/20/2022 4:55 AM EDT us Luz Kumari MD URINE ORDERABLES Becca lynne Result [facility] ([id number]) [address] [place] [address] [facility] [address] [place] [address] * Protime-INR (05/20/2022 4:33 AM EDT) Only the most recent of3 resultswithin the time period is included. Prothrombin Time 11.4 10.3 - 13.3 s 05/20/2022 5:06 AM EDT [facility] Comment: (note) Anticoagulants may alter the results of Laboratory Coagulation assays. New-generation anticoagulants such as direct Thrombin inhibitors (Dabigatran/Pradaxa, Argatroban, Bivalrudin) and direct/indirect factor Xa inhibitors (Rivaroxaban/Xarelto,Apixaban/Eliquis, Danaparoid/Orgaran, Fondaparinux/Arixtra) have been shown to affect the results of Laboratory Coagulation assays, creating falsely elevated or decreased values. Correlation with medication history is advised. INR 1.0 INR 05/20/2022 5:06 AM EDT [facility] Comment: INR Therapeutic Ranges: Low Intensity Range: 2.0-3.0 High Intensity Range: 3.0-4.5 Plasma BLOOD SPECIMEN FROM PATIENT / Unknown 05/20/2022 4:33 AM EDT 05/20/2022 4:33 AM EDT us Luz Kumari MD LAB BLOOD ORDERABLES Final Result [facility] ([id number]) [address] [place] [address] [facility] [address] [place] [address] * (ABNORMAL) CK (05/20/2022 4:33 AM EDT) CK 28(L) 30 - 200 U/L 05/20/2022 4:58 AM EDT [facility] Plasma BLOOD SPECIMEN FROM PATIENT / Unknown 05/20/2022 4:33 AM EDT 05/20/2022 4:33 AM EDT us Luz Kumari MD LAB BLOOD ORDERABLES Final Result Performing Organization Address City/[facility]/ZIP Co de Phone Number [facility] [phone]) [address] [place] [address] [facility] [address] [place] [address] * XR Chest 1 Vw (05/20/2022 4:03 AM EDT) Only the most recent of3 resultswithin the time period is included. Anatomical Region Laterality Modality Chest [facility] Radiographic Imaging 05/20/2022 7:17 AM EDT Narrative 05/20/2022 7:19 AM EDT REVIEWING YOUR TEST RESULTS IN [facility] IS NOT A SUBSTITUTE FOR DISCUSSING THOSE RESULTS WITH YOUR HEALTH CARE PROVIDER. PLEASE CONTACT YOUR PROVIDER VIA [facility] TO DISCUSS ANY QUESTIONS OR CONCERNS YOU MAY HAVE REGARDING THESE TEST RESULTS. RADIOLOGY REPORT FACILITY: [facility] UNIT/AGE/GENDER: J.ICU IN AGE:67 Y SEX:M PATIENT NAME/: VITALY CASILLAS 1955 UNIT NUMBER: [id number] ACCESSION NUMBER: [id number] PORTABLE AP CHEST, SINGLE VIEW DATE: 05/20/2022 COMPARISON: April 02, 2022 INDICATION: ETT and CVC placed at outlying facility. IMPRESSION: Endotracheal tube tip is obscured by multiple overlapping wires, but tip is grossly estimated at 3 cm above the zora. Right IJ central venous catheter tip is at the cavoatrial junction. No new focal lung consolidation, large pleural effusion, or pneumothorax. Heart size is normal Dictated by: Jeffrey Martinez M.D. Images and Report reviewed and interpreted by: Jeffrey Martinez M.D. <PS><Electronically signed by: Jeffrey Martinez M.D.> 05/20/2022717 [id number] Procedure Note Jeffrey Martinez MD - 05/20/2022 RE[facility]ING [facility] RESULTS [facility] IS NOT A SUBSTITUTE FORDISCUSSING THOSE RESULTS WITH YOUR HEALTH CARE PROVIDER. PLEASE CONTACT YOUR PROVIDER VIA [employer] TO DISCUSS ANY QUESTIONS ORCONCERNS YOU MAY HAVE REGARDING THESE TEST RESULTS. RADIOLOGY REPORT FACILITY: [facility] UNIT/AGE/GENDER: J.ICU IN AGE:67 Y SEX:M PATIENT NAME/: VITALY CASILLAS 1955 UNIT NUMBER: [id number] ACCESSION NUMBER: [id number] PORTABLE AP CHEST, SINGLE VIEW DATE: 05/20/2022 COMPARISON: April 02, 2022 INDICATION: ETT and CVC placed at outlying facility. IMPRESSION: Endotracheal tube tip is obscured by multiple overlappingwires, but tip is grossly estimated at 3 cm above the zora. Right IJ central venous catheter tip is at the cavoatrial junction. No new focal lung consolidation, large pleural effusion, or pneumothorax.Heart size is normal Dictated by: Jeffrey Martinez M.D. Images and Report reviewed and interpreted by: Jeffrey Martinez M.D. <PS><Electronically signed by: Jeffrey Martinez M.D.> 05/20/2022717 [id number] us Luz Kumari MD IMG DIAGNOSTIC IMAGIN G ORDERABLES Final Result * (ABNORMAL) Arterial Blood Gas (05/20/2022 3:56 AM EDT) Jaspreet Test POSITIVE (arb'U) 05/20/2022 3:57 AM EDT [facility] RT Temperature-AB G 37.0 37.0 Clara 05/20/2022 3:57 AM EDT [facility] RT pH-ABG 7.51(H) 7.35 - 7.45 PH 05/20/2022 3:57 AM EDT [facility] RT PCO2-ABG 38 35 - 48 mm(Hg) 05/20/2022 3:57 AM EDT [facility] RT PO2-ABG 128(H) 83 - 108 mm(Hg) 05/20/2022 3:57 AM EDT [facility] RT HCO3-ABG 30 22 - 30 mmol/L 05/20/2022 3:57 AM EDT [facility] RT CG96-JLW 31(H) 19 - 24 mmol/L 05/20/2022 3:57 AM T [facility] RT Base Excess-ABG 6.7(H) 0.0 - 3.0 mmol/L 05/20/2022 3:57 AM T [facility] RT O2 Sat-ABG 100.0(H) 95.0 - 98.0 % 05/20/2022 3:57 AM EDT [facility] RT Whole Blood 05/20/2022 3:56 AM EDT 05/20/2022 3:57 AM EDT us Luz Kumari MD LAB BLOOD ORDERABLES Final Result [facility] RT [address] [place] [address], [facility] [phone] [facility] RT [address] [place] [address] * Culture,Blood (05/20/2022 3:53 AM EDT) Only the most recent of2 resultswithin the time period is included. Culture No Growth 05/26/2022 5:54 AM EDT [facility] Blood ARTERIAL LINE SUBMITTED SPECIMEN / Unknown 05/20/2022 3:53 AM EDT 05/20/2022 3:58 AM EDT Comment:Central Line us Luz Kumari MD MICROBIOLOGY - GENERA L ORDERABLES Final Result [facility] [address] [place] [address] [facility] [address] [place] [address] * (ABNORMAL) Comprehensive Metabolic Panel (CMP) (05/20/2022 3:47 AM EDT) Only the most recent of2 resultswithin the time period is included. Sodium 140 136 - 145 mmol/L 05/20/2022 4:18 AM [facility] Comment: (note) Excess protein and/or lipids can falsely decrease sodium levels (pseudo hyponatremia). Potassium 4.0 3.5 - 5.1 mmol/L 05/20/2022 4:18 AM [facility] Chloride 104 98 - 107 mmol/L 05/20/2022 4:18 AM [facility] Comment: (note) Falsely elevated chloride levels can be seen in patients taking medications which contain bromide. Carbon Dioxide 28 22 - 29 mmol/L 05/20/2022 4:18 AM [facility] Anion Gap 8 5 - 13 (arb'U) 05/20/2022 4:18 AM [facility] Comment: (note) Calculation- Na - (Cl + CO2) Glucose 118 71 - 139 mg/dL 05/20/2022 4:18 AM [facility] Comment: (note) Reference range based on inpatient hypo/hyperglycemic treatment levels. A random glucose =/>200 is concerning for poor control. Blood Urea Nitrogen (BUN) 23 8 - 26 mg/dL 05/20/2022 4:18 AM [facility] Creatinine-Blood 0.45(L) 0.73 - 1.18 mg/dL 05/20/2022 4:18 AM [facility] BUN/Creatinine Ratio 51.1 RATIO 05/20/2022 4:18 AM T [facility] Estimated GFR >60 >60 /1.73 m2 05/20/2022 4:18 AM T [facility] Comment: (note) Results do not take into account body mass. Valid for patients 18 to 70 years of age. Estimated GFR if -Citizen Of [place] >60 >60 /1.73 m2 05/20/2022 4:18 AM T [facility] Comment: (note) Results do not take into account body mass. Valid for patients 18 to 70 years of age. Total Protein 6.2 6.2 - 8.0 g/dL 05/20/2022 4:18 AM T [facility] Albumin 3.3 3.2 - 4.6 g/dL 05/20/2022 4:18 AM [facility] Globulin 2.9 1.5 - 4.5 g/dL 05/20/2022 4:18 AM [facility] Albumin/Globulin Ratio 1.1 1.1 - 2.5 RATIO 05/20/2022 4:18 AM [facility] Calcium 9.0 8.4 - 10.2 mg/dL 05/20/2022 4:18 AM [facility] Total Bilirubin 0.3 0.2 - 1.2 mg/dL 05/20/2022 4:18 AM [facility] AST/SGOT 10 5 - 34 U/L 05/20/2022 4:18 AM [facility] ALT/SGPT 20 0 - 55 U/L 05/20/2022 4:18 AM [facility] Alkaline Phosphatase 77 40 - 150 U/L 05/20/2022 4:18 AM [facility] Plasma BLOOD SPECIMEN FROM PATIENT / Unknown 05/20/2022 3:47 AM EDT 05/20/2022 3:53 AM EDT us Luz Kumari MD LAB BLOOD ORDERABLES Final Result [facility] ([id number]) [address] [place] [address] [phone] [facility] [address] [place] [address] * Potassium (04/04/2022 12:16 PM EDT) Potassium 3.9 3.5 - 5.1 mmol/L 04/04/2022 12:35 PM EDT [facility] Plasma specimen (specimen) BLOOD SPECIMEN FROM PATIENT / Unknown 04/04/2022 12:16 PM EDT 04/04/2022 12:21 PM EDT us Abiodun Duran MD LAB BLOOD ORDERABLES Final R esult [facility] ([id number]) [address] [place] [address] [facility] [address] [place] [address] * MRI Brain Wo & W Con (04/03/2022 3:37 PM EDT) Anatomical Region Laterality Modality Head [facility] Magnetic [facility] onance Imaging 04/03/2022 4:11 PM EDT Narrative 04/03/2022 4:25 PM EDT REVIEWING YOUR TEST RESULTS IN [facility] IS NOT A SUBSTITUTE FOR DISCUSSING THOSE RESULTS WITH YOUR HEALTH CARE PROVIDER. PLEASE CONTACT YOUR PROVIDER VIA [facility] TO DISCUSS ANY QUESTIONS OR CONCERNS YOU MAY HAVE REGARDING THESE TEST RESULTS. RADIOLOGY REPORT FACILITY: [facility] UNIT/AGE/GENDER: J.ICU IN AGE:67 Y SEX:M PATIENT NAME/: VITALY CASILLAS 1955 UNIT NUMBER: [id number] ACCESSION NUMBER: [id number] MRI OF THE BRAIN WITH AND WITHOUT IV CONTRAST. DATE: 04/03/2022 3:37 PM CLINICAL HISTORY: status epilepticus. COMPARISONS: April 01, 2022 TECHNIQUE: Multisequence, multiplanar MR images of the brain are provided with and without IV contrast. FINDINGS: A plaque-like dural based lesion is noted along the lateral left temporal lobe. This measures 2.4 x 0.7 cm. The lesion measures 2.0 cm intracranial carotid and measures 3 lesion causes mild mass effect upon the lateral left upper lobe without adjacent edema identified. There is no other extra-axial lesion identified. No abnormal parenchymal enhancement is identified. The diffusion-weighted images are negative for infarct. No intracranial hemorrhage is identified. No hydrocephalus is present. No midline shift is identified. There is mild cortical volume loss. Subtle T2 hyperintensities are noted in the periventricular white matter. The major arterial flow voids are patent. The orbits are within normal limits. Is mild mucosal thickening of the sinuses and mastoid air cells. No suprasellar mass or pineal lesion is present. No Chiari malformation is identified. The hippocampi demonstrate mild symmetric volume loss. No abnormal T2 signals identified within the suggest mesial temporal sclerosis. No cortical dysplasia or heterotopia is identified. IMPRESSION: 1. No acute intracranial abnormality or seizure focus clearly seen. 2. A 2.4 cm plaque like, extra-axial lesion along the lateral left temporal convexity that is most likely a meningioma. A dural based metastasis is unlikely unless there is a history of a primary malignancy. 3. Mild diffuse cerebral atrophy and chronic ischemic small vessel white matter changes. Dictated by: Ran Hargrove M.D. Images and Report reviewed and interpreted by: Ran Hargrove M.D. <PS><Electronically signed by: Ran Hargrove M.D.> 04/03/2022 1624 1611 1611 Procedure Note Ran Hargrove MD - 04/03/2022 REVIEWING YOUR TEST RESULTS IN [facility] IS NOT A SUBSTITUTE FORDISCUSSING THOSE RESULTS WITH YOUR HEALTH CARE PROVIDER. PLEASE CONTACT YOUR PROVIDER VIA [facility] TO DISCUSS ANY QUESTIONS ORCONCERNS YOU MAY HAVE REGARDING THESE TEST RESULTS. RADIOLOGY REPORT FACILITY: [facility] UNIT/AGE/GENDER: Tracy.ICU IN AGE:67 Y SEX:M PATIENT NAME/: VITALY CASILLAS 1955 UNIT NUMBER: [id number] ACCESSION NUMBER: [id number] MRI OF THE BRAIN WITH AND WITHOUT IV CONTRAST. DATE: 04/03/2022 3:37 PM CLINICAL HISTORY: status epilepticus. COMPARISONS: April 01, 2022 TECHNIQUE: Multisequence, multiplanar MR images of the brain are providedwith and without IV contrast. FINDINGS: A plaque-like dural based lesion is noted along the lateral left temporallobe. This measures 2.4 x 0.7 cm. The lesion measures 2.0 cm intracranialcarotid and measures 3 lesion causes mild mass effect upon the lateralleft upper lobe without adjacent edema identified. There is no other extra-axial lesion identified. Noabnormal parenchymal enhancement is identified. The diffusion-weighted images are negative for infarct. No intracranialhemorrhage is identified. No hydrocephalus is present. No midline shift isidentified. There is mild cortical volume loss. Subtle T2 hyperintensitiesare noted in the periventricular white matter. The major arterial flow voids are patent. The orbits arewithin normal limits. Is mild mucosal thickening of the sinuses andmastoid air cells. No suprasellar mass or pineal lesion is present. NoChiari malformation is identified. The hippocampi demonstrate mild symmetric volume loss. No abnormal [id number] identified within the suggest mesial temporal sclerosis. Nocortical dysplasia or heterotopia is identified. IMPRESSION: 1. No acute intracranial abnormality or seizure focus clearly seen. 2. A 2.4 cm plaque like, extra-axial lesion along the lateral lefttemporal convexity that is most likely a meningioma. A dural basedmetastasis is unlikely unless there is a history of a primarymalignancy. 3. Mild diffuse cerebral atrophy and chronic ischemic small vessel whitematter changes. Dictated by: Ran Hargrove M.D. Images and Report reviewed and interpreted by: Ran Hargrove M.D. <PS><Electronically signed by: Ran Hargrove M.D.> 04/03/2022 1624 1611 1611 us Lissette Flood DO [facility] MRI ORDERABLES Final Result * Procalcitonin (04/02/2022 10:08 AM EDT) Procalcitonin 0.13 0.1 - 0.5 ng/mL 04/02/2022 10:56 AM EDT [facility] Plasma BLOOD SPECIMEN FROM PATIENT / Unknown 04/02/2022 10:08 AM EDT 04/02/2022 10:13 AM EDT David Garcia MD LAB BLOOD ORDERABLES Final Resu lt [facility] ([id number]) [address] [place] [address] [facility] [address] [place] [address] * (ABNORMAL) Culture, Sputum/Gram Stain (04/02/2022 9:57 AM EDT) Gram Stain Few Squamous Epithelial Cells 04/02/2022 10:45 AM EDT [facility] Gram Stain Many WBC's 04/02/2022 10:45 AM EDT [facility] Gram Stain Many Gram Positive Cocci in Pairs and Chains and Clusters 04/02/2022 10:45 AM EDT [facility] Gram Stain Few Gram Negative Bacillus 04/02/2022 10:45 AM EDT [facility] Gram Stain Many Gram Negative Diplococci 04/02/2022 10:45 AM EDT [facility] Culture Methicillin resistant Staphylococcus aureus Heavy Growth(A) 04/06/2022 9:54 AM EDT [facility] Culture Mixed Georgie Isolated. Scant Growth 04/06/2022 9:54 AM EDT [facility] Sputum NASOPHARYNGEAL ASPIRATE / Unknown 04/02/2022 9:57 AM EDT 04/02/2022 10:00 AM EDT Comment:Endotracheal Tube Narrative Organism Antibiotic Method Susceptibility Staphylococcus aureus Methicillin resistant Amoxicillin/Clavulanate [place] <=4/2: Resistant Staphylococcus aureus Methicillin resistant Clindamycin [place] <=0.25: Susceptible Staphylococcus aureus Methicillin resistant Erythromycin [place] >4: Resistant Staphylococcus aureus Methicillin resistant Oxacillin [place] >2: Resistant Staphylococcus aureus Methicillin resistant Tetracycline [place] <=1: Susceptible Staphylococcus aureus Methicillin resistant Trimethoprim/Sulfamethoxa zole [place] <=0.5/9.5: Susceptible Staphylococcus aureus Methicillin resistant Vancomycin [place] 1: Susceptible Staphylococcus aureus Methicillin resistant Cefazolin [place] <=4: Resistant David Garcia MD MICROBIOLOGY - GENERAL ORDERABL ES Final Result Performing Organization Address City/[facility]/ZIP Co de Phone Number [facility] [address] [place] [address] [facility] [address] [place] [address] [facility] [address] [place] [address] * (ABNORMAL) Hemoglobin A1C (04/02/2022 4:22 AM EDT) Only the most recent of2 resultswithin the time period is included. Hemoglobin A1C 6.1(H) 4.3 - 5.6 % 04/02/2022 11:26 AM EDT [facility] Comment: (note) A1C% Reference Range: 4.3 - 5.6 Normal range 5.7 - 6.4 Pre-diabetic -increased risk for developing diabetes mellitus. >=6.5 Diabetic -diagnostic of diabetes mellitus. Note: For diagnosis of diabetes in individuals without unequivocal hyperglycemia, results should be confirmed by repeat testing. Patients with conditions that shorten erythrocyte survival, such as recovery from acute blood loss, hemolytic anemia, kidney disease, or the presence of unstable hemogloblins like HbSS, HbCC, and HbSC may yield falsely decreased HbA1c test results. Iron deficiency may yield falsely increased HbA1c test results. Estimated Average Glucose 128 mg/dL 04/02/2022 11:26 AM EDT [facility] Whole Blood BLOOD SPECIMEN FROM PATIENT / Unknown 04/02/2022 4:22 AM EDT 04/02/2022 4:32 AM EDT us Carter Barajas DO LAB BLOOD ORDERABLES Final R esult [facility] [address] [place] [address] [facility] [address] [place] [address] * CT Head Wo Contrast (04/01/2022 6:38 PM EDT) Anatomical Region Laterality Modality Head Computed Tomogra phy 04/01/2022 6:51 PM EDT Narrative 04/01/2022 6:53 PM EDT REVIEWING YOUR TEST RESULTS IN [facility] IS NOT A SUBSTITUTE FOR DISCUSSING THOSE RESULTS WITH YOUR HEALTH CARE PROVIDER. PLEASE CONTACT YOUR PROVIDER VIA [employer] TO DISCUSS ANY QUESTIONS OR CONCERNS YOU MAY HAVE REGARDING THESE TEST RESULTS. RADIOLOGY REPORT FACILITY: [facility] UNIT/AGE/GENDER: J.ICU IN AGE:67 Y SEX:M PATIENT NAME/: VITALY CASILLAS 1955 UNIT NUMBER: [id number] ACCESSION NUMBER: [id number] DATE: 04/01/2022 HISTORY: Seizure, new-onset, no history of trauma status epilepticus EXAMINATION: CT SCAN OF BRAIN COMPARISON: March 31, 2022 FINDINGS: The radiation dose reduction system was utilized for each scan per the ALARA (as low as reasonably achievable) protocol. The ventricular system is anatomic without hydrocephalus. There is moderate cortical atrophy within the range of normal for the patient's age. There is nonspecific decreased attenuation of periventricular white matter likely related to chronic small vessel disease. No intracranial mass or mass effect is demonstrated. There is no evidence of acute hemorrhage or extra-axial fluid collection. CONCLUSION: 1. No acute intracranial abnormality is demonstrated. 2. Cortical atrophy and white matter changes of chronic small vessel disease. Dictated by: Magan Alcaraz M.D. Images and Report reviewed and interpreted by: Magan Alcaraz M.D. <PS><Electronically signed by: Magan Alcaraz M.D.> 04/01/20221851 1850 1850 Procedure Note Magan Alcaraz MD - 04/01/2022 REVIEWING YOUR TEST RESULTS IN [facility] IS NOT A SUBSTITUTE FORDISCUSSING THOSE RESULTS WITH YOUR HEALTH CARE PROVIDER. PLEASE CONTACT YOUR PROVIDER VIA [employer] TO DISCUSS ANY QUESTIONS ORCONCERNS YOU MAY HAVE REGARDING THESE TEST RESULTS. RADIOLOGY REPORT FACILITY: [facility] UNIT/AGE/GENDER: J.ICU IN AGE:67 Y SEX:M PATIENT NAME/: VITALY CASILLAS 1955 UNIT NUMBER: [id number] ACCESSION NUMBER: [id number] DATE: 04/01/2022 HISTORY: Seizure, new-onset, no history of trauma status epilepticus EXAMINATION: CT SCAN OF BRAIN COMPARISON: March 31, 2022 FINDINGS: The radiation dose reduction system was utilized for each scanper the ALARA (as low as reasonably achievable) protocol. The ventricularsystem is anatomic without hydrocephalus. There is moderate corticalatrophy within the range of normal for the patient's age. There is nonspecific decreased attenuation ofperiventricular white matter likely related to chronic small vesseldisease. No intracranial mass or mass effect is demonstrated. There is noevidence of acute hemorrhage or extra-axial fluid collection. CONCLUSION: 1. No acute intracranial abnormality is demonstrated. 2. Cortical atrophy and white matter changes of chronic small vesseldisease. Dictated by: Magan Alcaraz M.D. Images and Report reviewed and interpreted by: Magan Alcaraz M.D. <PS><Electronically signed by: Magan Alcaraz M.D.> 04/01/20221851 1850 1850 Lissette Perry Moedaryl DO G CT ORDERABLES Final Result * XR Abdomen Ap Only (04/01/2022 4:45 PM EDT) Anatomical Region Laterality Modality Abdomen [facility] Radiographic Imaging 04/01/2022 5:19 PM EDT Narrative 04/01/2022 5:23 PM EDT REVIEWING YOUR TEST RESULTS IN [facility] IS NOT A SUBSTITUTE FOR DISCUSSING THOSE RESULTS WITH YOUR HEALTH CARE PROVIDER. PLEASE CONTACT YOUR PROVIDER VIA [facility] TO DISCUSS ANY QUESTIONS OR CONCERNS YOU MAY HAVE REGARDING THESE TEST RESULTS. RADIOLOGY REPORT FACILITY: [facility] UNIT/AGE/GENDER: J.ICU IN AGE:67 Y SEX:M PATIENT NAME/: VITALY CASILLAS 1955 UNIT NUMBER: [id number] ACCESSION NUMBER: [id number] EXAM: XR CHEST 1 VW, XR ABDOMEN AP ONLY DATE OF EXAM: 04/01/2022 CLINICAL HISTORY: Confirm ETT and CVC placement COMPARISON: None. FINDINGS: Chest x-ray: Endotracheal tube present with tip only approximately 8 mm above zora. Consider retraction. Right IJ CVC present with catheter tip in region of lower SVC near cavoatrial junction. Nasogastric/orogastric tube present traversing GE junction, redundant in the proximal stomach with the tip projecting in the proximal stomach near the GE junction. Subsegmental atelectasis versus mild airspace disease noted in the retrocardiac left lower lobe. Remainder of lungs clear. No pneumothorax or pleural effusion. Calcific thoracic aorta noted. Heart size upper limits of normal. Degenerative changes are noted in the thoracic spine. Degenerative changes are noted in the cervical spine. No acute osseous abnormalities. . Abdomen x-ray: Nasogastric/orogastric tube present traversing GE junction, coiled in the gastric fundus with the tip near the GE junction. Visualized portions of the abdomen demonstrates stool-filled colon and no dilated small bowel. Subsegmental atelectasis versus mild airspace disease is noted in the retrocardiac left lower lobe. Degenerative changes are noted at the thoracolumbar junction of the spine. IMPRESSION: 1. The endotracheal tube tip is only approximately 8 mm above the zora. Consider retraction. 2. Subsegmental atelectasis versus mild airspace disease is noted in the retrocardiac left lower lobe. A follow-up exam is offered to ensure resolution. 3. There is a right IJ CVC present with catheter tip in region of lower SVC near cavoatrial junction. 4. The nasogastric/orogastric tube traverses the GE junction with the distal aspect coiled in the gastric fundus with the tip near the GE junction. 5. Secondary findings are discussed in the body of the report. Dictated by: Nehemias Conley M.D. Images and Report reviewed and interpreted by: Nehemias Conley M.D. <PS><Electronically signed by: Nehemias Conley M.D.> 04/01/2022 [id number] 1718 Procedure Note Nehemias Conley MD - 04/01/2022 REVIEWING YOUR TEST RESULTS IN [facility] NOT A SUBSTITUTE FORDISCUSSING THOSE RESULTS WITH YOUR HEALTH CARE PROVIDER. PLEASE CONTACT YOUR PROVIDER VIA [employer] TO DISCUSS ANY QUESTIONS ORCONCERNS YOU MAY HAVE REGARDING THESE TEST RESULTS. RADIOLOGY REPORT FACILITY: [facility] UNIT/AGE/GENDER: Tracy.ICU IN AGE:67 Y SEX:M PATIENT NAME/: VITALY CASILLAS 1955 UNIT NUMBER: [id number] ACCESSION NUMBER: [id number] EXAM: XR CHEST 1 VW, XR ABDOMEN AP ONLY DATE OF EXAM: 04/01/2022 CLINICAL HISTORY: Confirm ETT and CVC placement COMPARISON: None. FINDINGS: Chest x-ray: Endotracheal tube present with tip only approximately 8 mmabove zora. Consider retraction. Right IJ CVC present with catheter tip in region of lower SVC nearcavoatrial junction. Nasogastric/orogastric tube present traversing GE junction, redundant inthe proximal stomach with the tip projecting in the proximal stomach nearthe GE junction. Subsegmental atelectasis versus mild airspace disease noted in theretrocardiac left lower lobe. Remainder of lungs clear. No pneumothorax or pleural effusion. Calcific thoracic aorta noted. Heart size upper limits of normal. Degenerative changes are noted in the thoracic spine. Degenerative changes are noted in the cervical spine. No acute osseous abnormalities. . Abdomen x-ray: Nasogastric/orogastric tube present traversing GEjunction, coiled in the gastric fundus with the tip near the GEjunction. Visualized portions of the abdomen demonstrates stool-filled colon and nodilated small bowel. Subsegmental atelectasis versus mild airspace disease is noted in theretrocardiac left lower lobe. Degenerative changes are noted at the thoracolumbar junction of thespine. IMPRESSION: 1. The endotracheal tube tip is only approximately 8 mm above the zora.Consider retraction. 2. Subsegmental atelectasis versus mild airspace disease is noted in theretrocardiac left lower lobe. A follow-up exam is offered to ensureresolution. 3. There is a right IJ CVC present with catheter tip in region of lowerSVC near cavoatrial junction. 4. The nasogastric/orogastric tube traverses the GE junction with thedistal aspect coiled in the gastric fundus with the tip near the GEjunction. 5. Secondary findings are discussed in the body of the report. Dictated by: Nehemias Conley M.D. Images and Report reviewed and interpreted by: Nehemias Conley M.D. <PS><Electronically signed by: Nehemias Conley M.D.> 04/01/2022 1722 1719 1718 us Carter Barajas DO IMG DIAGNOSTIC IMAGING ORDER SEB Final Result Visit Diagnoses Diagnosis Start Date Status epilepticus Epileptic grand mal status 04/01/2022 Meningioma Benign neoplasm of cerebral meninges 04/13/2022 Acute encephalopathy 05/20/2022 Acute respiratory failure with hypoxia 05/20/2022 Status epilepticus Epileptic grand mal status 04/01/2022 Meningioma Benign neoplasm of cerebral meninges 05/20/2022 Primary hypertension Unspecified essential hypertension 05/20/2022 Other hyperlipidemia 05/20/2022 Type 2 diabetes mellitus without complication, without long-term current use of insulin 05/20/2022 Seizure disorder Unspecified epilepsy without mention of intractable epilepsy 05/20/2022 Hx of AKA (above knee amputation), right 05/20/2022 Acute respiratory failure with hypoxia 05/20/2022 Anemia Unspecified anemia 05/20/2022 Acute encephalopathy 05/20/2022 Lactic acidosis Acidosis 05/20/2022 Other dysphagia 05/20/2022 Care Teams Pie Topper Relationship Specialty Start Date End Date John Paul Orellana MD [address] [place] [address] PCP - General Internal Medicine 04/03/22
--- OUTSIDE RECORDS SUMMARY | 2025-04-13 09:55 | XMS_ITS | Clinical Summary ---
Author Organization [facility] Address [address] [place] [address] Care Team Providers Care Director Of Dementia Operations Name Role Phone John Paul Orellana MD Primary Care Provider [phone] Allergies Active Allergy Reactions Criticality Noted Date [...] (04/20/2022): Added automatically from request for surgery [id number] Resolved Problems Problem Noted Date Diagnosed Date [...] drink first t clarita in the morning (EYE-NETWORK PLANNER) to steady your nerves or to get [...] A1C 10/18/202204/2022, 10/28/2021, 07/12/2020, Additional history exists [id number] Vaccine (3 - season) 2024 12/17/2020, 11/20/2020 [...] ORDERABLES Final R esult [facility] [address] [place] [address] * (ABNORMAL) Hemoglobin A1c (04/20/2022 11:09 AM [...] Adults <6.0% Children and Adolescents <7.5% Source: [place] [employer]. Standards of medical care in diabetes,2017. Diabetes Care.2017:40 (suppl 1):S1-S135. HbA1c assay performed by an ion-exchange chromatography method that is certified traceable to the DCCT. Crys Herrera [facility] BLOOD ORDERABLES Final Result [facility] [address] [place] [address] from Last 3 Months or Most Recently Relevant to Health Maintenance Additional Health Concerns Infection Onset Date Last Indicated MRSA 04/20/2022 05/28/2022 Insurance [employer]IC[employer] Advance Directives Documents on File Type Date Recorded Patient Plumber Cub Expl anation Advance Directives and Livin g Will 04/20/2022 2:05 PM Care Teams Director Of Dementia Operations Relationship Specialty Start Date End Date John Paul Orellana MD [address] [place] [address] PCP - General 01/24/21
--- OUTSIDE RECORDS SUMMARY | 2025-04-13 09:55 | XMS_ITS | Referral Summary ---
Author Organization [employer] ([place], [place], [place], [place]) Address [address] [place] [address] Care Team Providers Care Early Childhood Teacher Name Role Phone Unavailable Primary Care Provider Unavailabl e Encounters Date Type Department Care Team Description 01/23/2025 Orders Only [facility] [address] [place] [address] Gustavo Leggett MD from Last [...] - 01/27/2025 4:07 PM EDT Performed at: [address] [place] [address] [id number] Mall Plant Caretaker: Michael Roland PhD, Phone: [phone] Gustavo Leggett MD PATHOLOGY/CYTOLOGY ORDERABLE S Final Result Performing Organization Address [facility] de Phone Number [facility] * [...] - 01/27/2025 4:07 PM EDT Performed at: [address] [place] [id number] Mall Plant Caretaker: Michael Roland PhD, Phone: [phone] Gustavo Leggett MD PATHOLOGY/CYTOLOGY ORDERABLE S Final Result Performing Organization Address [facility] de Phone Number [facility] * (ABNORMAL) URINE CULTURE, ROUTINE (01/23/2025 4:40 PM EDT) Pathologist [facility] Urine Culture, Routine Final report(A) [facility] 01/23/2025 4:40 PM EDT 01/23/2025 Comment:UR Narrative [facility] - 01/27/2025 4:07 PM EDT Performed at: [address] [place] [address] [id number] Mall Plant Caretaker: Michael Roland PhD, Phone: [phone] Gustavo Leggett MD MICROBIOLOGY - GENERAL ORDER SEB Final Result Performing Organization Address [facility] de Phone Number [facility] * (ABNORMAL) Urinalysis w/Microscopic (01/23/2025 4:40 PM EDT) Pathologist [facility] Specific [place], UA 1.019 1.005 - 1.030 [facility] pH, [...] - 01/27/2025 4:07 PM EDT Performed at: [address] [place] [address] [id number] Mall Plant Caretaker: Michael Roland PhD, Phone: [phone] Resulting Agency Comment SRC:UR Gustavo Leggett MD URINE ORDERABLES Final Resul t Performing Organization Address [facility] Co de Phone Number [facility] from Last 3 Months
--- OUTSIDE RECORDS SUMMARY | 2025-04-13 09:55 | XMS_ITS | Encounter Summary ---
Author Organization [facility] Address [address] [place] [address] Care Team Providers Care Radial Drill Press Operator Name Role Phone John Paul Orellana MD Primary Care Provider [phone] Encounter Details Date Type Department Care Team (Late st Contact Info) Description 04/21/2022 Lab Requisition [facility] [address] [place] [address] Delvis Dominguez MD [address] [facility] 7[address] [facility] [address] [place] [address] Encounter for general adult medical [...] drink first t clarita in the morning (EYE-QUALITY PROJECT MANAGER) to steady your nerves or to get [...] GENERAL ORDERABLES Final Result [facility] [address] [place] [address] documented in this encounter Visit Diagnoses Diagnosis Encounter for general adult medical examination without abnormal findings documented in this encounter Additional Health Concerns Infection Onset Date Last Indicated Resolved Time MRSA 04/20/2022 05/28/2022 documented as of this encounter Care Teams Radial Drill Press Operator Relationship Specialty Start Date End Date John Paul Orellana MD [address] [place] [address] PCP - General 01/24/21 documented as of this encounter
--- OUTSIDE RECORDS SUMMARY | 2025-04-13 09:56 | XMS_ITS | Encounter Summary ---
Author Organization [email or web address] ([place], [place], [place], [place]) Address [address] [place] [address] Care Team Providers Care Core Checker Name Role Phone Unavailable Primary Care Provider Unavailabl e Encounter Details Date Type Department Care Team (Late st Contact Info) Description 12/25/2021 Transcribed Document [facility] [place] [address] [place] [address] ProviderDario MD [address] [place], [place] [id number] Social History Tobacco Use Types Packs/Day Years [...]
--- OUTSIDE RECORDS SUMMARY | 2025-04-13 09:56 | XMS_ITS | Encounter Summary ---
Author Organization [employer] ([place], [place], [place], [place]) Address [address] [place] [address] Care Team Providers Care Asparagus Buncher Name Role Phone Unavailable Primary Care Provider Unavailabl e Encounter Details Date Type Department Care Team (Late st Contact Info) Description 01/01/2022 Transcribed Document [facility] [place] [facility] [place] [address] ProviderDario MD [address] [place] [address] Social History Tobacco Use Types Packs/Day Years Used Date Smoking Tobacco: Never Assessed Sex and Gender Information Value Date Recorded Sex Assigned at Not on file Legal Sex Male 5:38 PM CDT Gender Identity Not on file Sexual Orientation Not on file documented as of this encounter Miscellaneous Notes * Cerner Conversion Note - Dario ProviderMD - 01/01/2022 4:27 PM CDT [place] [address] VITALY POOL :1955 Visit Time:12/24/2021 Your [...] Goals Patient Discharge Goal Patient Discharge Goal: [facility] facility Discharge Vitals Temperature 36.3 ??C Heart Rate (Monitored) 100 Respiratory Rate 16 Blood Pressure 115/79 What to do next Instructions From Your Care Team Discharge Activity: Discharge Activity: Activity as tolerated Diet: Discharge Diet: Resume usual diet as tolerated Follow-Up Appointments Follow Up with ROBERT CLAYTON MD-INT When Within 2 to 3 days Comments at [facility] Where: Medications What How Much When Instructions [...] these instructions at home: Medicines ??? Take zjuy-cyx-grojopx and prescription medicines only as told by [...] the [place] ask your local department of [place] when you can drive. ??? Get a [...] medicines are used to treat seizures. Take cubw-bkn-scidjvu and prescription medicines only as told by your doctor. This information is not intended to replace advice given to you by your health care provider. Make sure you discuss any questions you have with your health care provider. Document Revised: 03/07/2021 Document Reviewed: 03/07/2021 [employer] Patient Education ?? 2020 [employer]. Emergency Awareness and Preventative Care STROKE is [...] Assistance with quitting is available by contacting 5-645-GQRA-NOW. This is a free resource providing counseling, [...] range between ( 0.0 and 7.0 ) [place] #: 0.92 K/uL -- Normal range between ( 0.16 and 1.00 ) Eos #: 0.48 x10(3)/uL -- Normal range between ( 0.00 and 0.80 ) [place] %: 9.9 % -- Normal range between [...] was given the opportunity to ask questions. Patient/Video Game Animator Name: Patient/Video Game Animator Signature: Relationship to Patient: Clinician/Hospital Video Game Animator Signature: Date: documented in this encounter Plan of Treatment Not on file documented as of this encounter Visit Diagnoses Not on filedocumented in this encounter
--- OUTSIDE RECORDS SUMMARY | 2025-04-13 09:56 | XMS_ITS | Encounter Summary ---
Author Organization [employer] ([place], [place], [place], [place]) Address [address] [place] [address] Care Team Providers Care Forest Ecologist Name Role Phone Unavailable Primary Care Provider Unavailabl e Encounter Details Date Type Department Care Team (Late st Contact Info) Description 01/01/2022 Transcribed Document [facility] [place] Medicine [address] [place] [address] ProviderDario MD [address], [place] [id number] Social History Tobacco Use Types Packs/Day Years Used Date Smoking Tobacco: Never Assessed Sex and Gender Information Value Date Recorded Sex Assigned at Not on file Legal Sex Male 5:38 PM CDT Gender Identity Not on file Sexual Orientation Not on file documented as of this encounter Miscellaneous Notes * Cerner Conversion Note - Historical ProviderMD - 01/01/2022 2:00 AM CDT Foreign Banknote Teller Details Entered On: 01/01/2022 1:24 EDT Performed [...]
--- OUTSIDE RECORDS SUMMARY | 2025-04-13 09:56 | XMS_ITS | Encounter Summary ---
[facility] Organization [facility] Address [address] [place] [address] Care Team Providers Care Hand Packager Name Role Phone Gustavo Leggett MD Primary Care Provider [phone] Reason for Visit * Reason Onset Date Comments SURGERY QUESTIONS 02/08/2020 Encounter Details Date Type Department Care Team (Late st Contact Info) Description 02/08/2020 Telephone [facility] [address] [facility] [address] [place] [address] Tyree Tan MD SURGERY QUESTIONS Social History Tobacco Use Types Packs/Day Years Used Date Smoking Tobacco: Never Smokeless Tobacco: Never Alcohol Use Standard Drinks/Week Comments No 0 (1 standard drink = 0.6 oz pur e alcohol) AUDIT-C Answer Date Recorded Frequency of Alcohol Consumption Never 04/28/2019 Average Number of Drinks Not on file 019 Frequency of Binge Drinking Not on file 04/13 Sex and Gender Information Value Date Recorded Sex Assigned at Not on file Legal Sex Male 1:18 PM EDT Gender Identity Not on file Sexual Orientation Not on file documented as of this encounter Plan of Treatment Not on file documented as of this encounter Visit Diagnoses Not on filedocumented in this encounter Additional Health Concerns Infection Onset Date Last Indicated Resolved Time COVID Screen (preop/placement) 07/15/2020 07/15/2020 07/16/2020 1:54 PM EST COVID Screen (preop/placement) 10/28/2021 10/28/2021 10/28/2021 2:07 PM EST VRE 11/17/2021 11/17/2021 MRSA 11/17/2021 01/16/2024 COVID Screen (preop/placement) 11/30/2021 11/30/2021 11/30/2021 3:20 PM EDT COVID Screen (preop/placement) 05/03/2022 05/03/2022 05/03/2022 8:10 PM EDT COVID Screen (preop/placement) 05/08/2022 05/08/2022 05/08/2022 11:37 AM EDT COVID Screen (preop/placement) 05/09/2022 05/09/2022 05/09/2022 5:41 AM EDT COVID Screen (preop/placement) 06/21/2022 06/21/2022 06/21/2022 11:06 AM EDT COVID Screen (preop/placement) 06/23/2022 06/23/2022 06/23/2022 3:52 PM EDT ESBL 08/31/2023 08/31/2023 08/31/2024 12:4 9 PM EST documented as of this encounter Care Teams Hand Packager Relationship Specialty Start Date End Date Gustavo Leggett MD [address] [facility] [address] [place] [address] PCP - General Adolescent Medicine 07/14/23 documented as of this encounter
--- OUTSIDE RECORDS SUMMARY | 2025-04-13 09:56 | XMS_ITS | Encounter Summary ---
Author Organization [employer] ([place], [place], [place], [place]) Address [address] [place] [address] Care Team Providers Care Business Employment Specialist Name Role Phone Unavailable Primary Care Provider Unavailabl e Encounter Details Date Type Department Care Team (Late st Contact Info) Description 12/24/2021 Transcribed Document [facility] [place] [facility] [place] [address] ProviderDario MD [address] [place] [id number] Social History Tobacco Use Types Packs/Day Years [...] 14:04 EDT Chief Complaint : pt from [facility], direct admit, pt has been having seizures [...] 14:04:45 EDT) Problems(Active) Back pain (SNOMED CT :980842150 ) Name of Problem: Back pain ; Recorder: Alondra Hughes RN; Confirmation: Confirmed ; Classification: Patient Stated ; Code: [id number] ; Contributor System: PowerChart ; Last Updated: 01/15/2016 8:18 EDT ; Life Cycle Date: 01/15/2016 ; Life Cycle Status: Active ; Vocabulary: SNOMED CT Diabetes mellitus type II (SNOMED CT :14046982 ) Name of Problem: Diabetes mellitus type II ; Recorder: Alondra Hughes RN; Confirmation: Confirmed ; Classification: Patient Stated ; Code: 30558132 ; Contributor System: PowerChart ; Last Updated: 01/15/2016 8:18 EDT ; Life Cycle Date: 01/15/2016 ; Life Cycle Status: Active ; Vocabulary: SNOMED CT Hyperlipidemia (SNOMED CT :24214401 ) Name of Problem: Hyperlipidemia ; Recorder: Alondra Hughes RN; Confirmation: Confirmed ; Classification: Patient Stated ; Code: 56613238 ; Contributor System: PowerChart ; Last Updated: 01/15/2016 8:18 EDT ; Life Cycle Date: 01/15/2016 ; Life Cycle Status: Active ; Vocabulary: SNOMED CT Hypertension (SNOMED CT :07286516 ) Name of Problem: Hypertension ; Recorder: Alondra Hughes RN; Confirmation: Confirmed ; Classification: Patient Stated ; Code: 50235654 ; Contributor System: PowerChart ; Last Updated: 01/15/2016 8:16 EDT ; Life Cycle Date: 01/15/2016 ; Life Cycle Status: Active ; Vocabulary: SNOMED CT Restless legs syndrome (SNOMED CT :74685482 ) Name of Problem: Restless legs syndrome ; Recorder: Alondra Hughes RN; Confirmation: Confirmed ; Classification: Patient Stated ; Code: 45452065 ; Contributor System: PowerChart ; Last Updated: 01/15/2016 8:18 EDT ; Life Cycle Date: 01/15/2016 ; Life Cycle Status: Active ; Vocabulary: SNOMED CT Seizure (SNOMED CT :004931406 ) Name of Problem: Seizure ; Recorder: Alondra Hughes RN; Confirmation: Confirmed ; Classification: Patient Stated ; Code: [id number] ; Contributor System: RealOps ; Last Updated: 01/15/2016 8:18 EDT ; Life Cycle Date: 01/15/2016 ; Life Cycle Status: Active ; Vocabulary: SNOMED CT Diagnoses(Active) Seizure Date: 12/24/2021 ; Diagnosis Type: Reason For Visit ; Confirmation: Complaint of ; Clinical Dx: Seizure ; Classification: Medical ; Clinical Service: Non-Specified ; Code: PNED ; Probability: 0 ; Diagnosis Code: [id number] Seizure - Recurrent Date: 12/24/2021 ; Diagnosis Type: Reason For Visit ; Confirmation: Complaint of ; Clinical Dx: Seizure - Recurrent ; Classification: Medical ; Clinical Service: Non-Specified ; Code: PNED ; Probability: 0 ; Diagnosis Code: [id number] ED Height and Weight Height Source : Stated Height Entry Format : [place] Height, Feet : 5 ft(Converted to: 152 cm, 60 Inch) Height, Inches : 10 Inch(Converted to: 0 ft 10 Inch, 25.40 cm) Clinical Height : 177.8 cm Weight Source, ED : Critical estimated dosing weight Weight Entry Format : [place] Weight, Pounds : 180 lb Clinical Dosing Weight : 81.82 kg Body Surface Area (BSA) : 2 m2 Body Mass Index : 25.9 kg/m2 (HI) [place] Body Weight (IBW) : 72.02 kg BRITTNEY TORRES RN - 12/24/2021 13:49 EDT documented in this encounter Plan of Treatment Not on file documented as of this encounter Visit Diagnoses Not on filedocumented in this encounter
--- OUTSIDE RECORDS SUMMARY | 2025-04-13 09:56 | XMS_ITS | Encounter Summary ---
Author Organization [employer] ([place], [place], [place], [place]) Address [address] [place] [address] Care Team Providers Care Maintenance And Engineering Manager Name Role Phone Unavailable Primary Care Provider Unavailabl e Encounter Details Date Type Department Care Team (Late st Contact Info) Description 01/01/2022 Transcribed Document [facility] [place] [facility] [place] [address] ProviderDario MD [address] [place] [address] Social History Tobacco Use Types [...] these instructions at home: Medicines ??? Take isga-zve-uskfiaa and prescription medicines only as told by [...] medicines are used to treat seizures. Take bjpu-cdf-gofgbii and prescription medicines only as told by your doctor. This information is not intended to replace advice given to you by your health care provider. Make sure you discuss any questions you have with your health care provider. Document Revised: 03/07/2021 Document Reviewed: 03/07/2021 [employer] Patient Education ? 2020 [employer]. documented in this encounter Plan of Treatment Not on file documented as of this encounter Visit Diagnoses Not on filedocumented in this encounter
--- OUTSIDE RECORDS SUMMARY | 2025-04-13 09:56 | XMS_ITS | Encounter Summary ---
Author Organization [employer] ([place], [place], [place], [place]) Address [address] [place] [address] Care Team Providers Care Template Maker Name Role Phone Unavailable Primary Care Provider Unavailabl e Encounter Details Date Type Department Care Team (Late st Contact Info) Description 12/24/2021 Transcribed Document [facility] [place] [address] [place] [address] ProviderDario MD [address] [id number] Social History Tobacco Use Types Packs/Day Years [...] Performed On: 12/24/2021 15:29 EDT by [facility] Phone Call for Consults Consult Reason : roselia has seen patient [facility]N [facility] - 12/26/2021 4:23 EDT Electronically signed by Olena Cruz Conversion Clinical Trials Systems Administrator Cerner at 12/29/2022 4:40 PM CDT documented in this encounter Plan of Treatment Not on file documented as of this encounter Visit Diagnoses Not on filedocumented in this encounter
--- OUTSIDE RECORDS SUMMARY | 2025-04-13 09:56 | XMS_ITS | Encounter Summary ---
Author Organization [employer] ([place], [place], [place], [place]) Address [address] [place] [address] Care Team Providers Care Applications Support Analyst Name Role Phone Unavailable Primary Care Provider Unavailabl e Encounter Details Date Type Department Care Team (Late st Contact Info) Description 12/24/2021 Transcribed Document [facility] [place] Family Medicine [facility] [place] [address] ProviderDario MD [address] [place], [place] [id number] Social History Tobacco Use Types Packs/Day Years [...] Prior LOF Wheel Chair Mobility : Independent RICHRAD VASQUEZ PT Student - 12/26/2021 14:57 EDT [...] VASQUEZ PT Student - 12/26/2021 14:57 EDT Orthodontic Technician Goals BalanceLTG Grid Goal #1 Activity : [...]
--- OUTSIDE RECORDS SUMMARY | 2025-04-13 09:56 | XMS_ITS | Encounter Summary ---
Author Organization [employer] ([place], [place], [place], [place]) Address [address] [place] [address] Care Team Providers Care Intraoperative Neuro Tech Name Role Phone Unavailable Primary Care Provider Unavailabl e Encounter Details Date Type Department Care Team (Late st Contact Info) Description 01/01/2022 Transcribed Document [facility] [place] Family Medicine [place] [address] ProviderDario MD [address] [place], [place] [id number] Social History Tobacco Use Types Packs/Day Years [...] Discharge order Discharged to, Therapy : Unit, [facility]ci Discharge Summary Comment, PT : Pt being [...] DEVAN RALPH, PT - 01/01/2022 16:30 EDT Manager Pet Goals Mobility/Bed Mobility LTG PT Grid Goal [...]
--- OUTSIDE RECORDS SUMMARY | 2025-04-13 09:56 | XMS_ITS | Encounter Summary ---
Author Organization [employer] ([place], [place], [place], [place]) Address [address] [place] [address] Care Team Providers Care Integrity Consultant Name Role Phone Unavailable Primary Care Provider Unavailabl e Encounter Details Date Type Department Care Team (Late st Contact Info) Description 12/30/2021 Transcribed Document [facility] Radiology [address] [place] [address] Anali South MD [address] [facility] [address] [place] [address] Social History Tobacco Use Types [...] or apply Heel Medix boots Apply Aloe [place] 3 (clear) or Sensicare 3 (white Zinc) [...] YO male who presented to [facility] from [facility] secondary recurrent seizure activity. He is known to our practice from [facility]. Pt has hx of seizures, DM II, HTN, HLD, functional quadraplegia. It appears that pt had increased seizure activity in 10/2021 when at [facility] (or may have led to him going there). Keppra was added to lamictal at that time, then was hospitalized again at [facility] and dilantin was added to [...] he was transferred here to [facility] for further work up. No records from [facility] ER were seen on pts chart. Pt says he has felt feverish. No cp, soa. Has had occ cough. Concerned about sacral/buttock wound. States that previously at [facility] it was almost healed now it is bad again. C/o pain around right parotid gland. States it was found at [facility]. States they have been swabbing his mouth with lemon juice, that helped at first but now swollen. Pt has dentures but not with him. At [facility] he was started on azithromycin and [...] and drinking well. Ready to d/c to [facility]. PE: Vitals Signs (last [...] -12/25 - well controlled. A1c 6.4 Dysphagia -MASTIC MAN eval -thickened liquids and pureed diet for [...]
--- OUTSIDE RECORDS SUMMARY | 2025-04-13 09:56 | XMS_ITS | Encounter Summary ---
Author Organization [employer] ([place], [place], [place], [place]) Address [address] [place] [address] Care Team Providers Care Paper Wood Cutter Name Role Phone Unavailable Primary Care Provider Unavailabl e Encounter Details Date Type Department Care Team (Late st Contact Info) Description 12/24/2021 Transcribed Document [facility] [place] Family Medicine [facility] [place] [address] ProviderDario MD [address] [place] [id number] Social History Tobacco Use Types Packs/Day Years [...] Communication Barrier : None Primary Language : Albanian Any Spiritual/Cultural Needs or Requests : No [...]
--- OUTSIDE RECORDS SUMMARY | 2025-04-13 09:56 | XMS_ITS | Encounter Summary ---
Author Organization [employer] ([place], [place], [place], [place]) Address [address] [place] [address] Care Team Providers Care Biofuels Engineering Manager Name Role Phone Unavailable Primary Care Provider Unavailabl e Encounter Details Date Type Department Care Team (Late st Contact Info) Description 12/31/2021 Transcribed Document [facility] [place] Family Medicine [address] [place] [address] ProviderDario MD [address] [place], [place] [phone] Social History Tobacco Use Types Packs/Day Years [...] On: 12/31/2021 8:31 EDT by Idalia Watson, Web Content Director Nutrition Assessment Nutrition Assessment Reason : Follow Up Idalia Watson, Web Content Director - 12/31/2021 8:31 EDT Current Nutrition Regimen Comment : 12/31: mod f/u. Religious Educator visited pt who reported he is awaiting discharge today, per MD discharge is pending pre-cert. Pt stated he eats 50-100% of all of his meals and drinks all of his Glucerna. He also reported that he drinks the orange Gianni but does not like the fruit punch, internet marketing manager to order. Pt was very pleasant and said he is willing to do whatever is needed to get his wounds healing. 12/26: Automatic consult d/t PU. Pt is a 66 y/o M admitted for recurrent seizure activity, s/p 19 min seizure at SNF. Neurology following, on EEG monitoring. Pt had PU at previous rehab facility but noted has been getting worse. PARENT EDUCATOR consulted for h/o dysphagia, okay for regular/thin [...] Nutrient Needs Comment : protein Idalia Watson, Web Content Director - 12/31/2021 14:28 EDT Nutrition Interventions Meals and Snacks : Carbohydrate-modified diet Nutrition Supplement Therapy : Commercial beverage Idalia Watson, Web Content Director - 12/31/2021 14:28 EDT Monitoring/Evaluation Energy Intake : Total energy intake Food Intake : Amount of food Protein Intake : Total protein Weight Status : Weight Maintanence Gastrointestinal Function : Bowel Function Integumentary : Pressure Ulcer Status Idalia Watson, Web Content Director - 12/31/2021 14:28 EDT Nutrition Recommendations Dietitian Recommendations : 1. Continue 60 gm diet +Glucerna BID and Gianni BID. Goal: Intakes 50% or greater 2. Monitor wt 1x/wk *internet marketing manager to order new Goal: No significant wt loss 3. Monitor BG, adjust insulin prn Goal: 70-140 mg/dL Risk: Moderate Lori Moon, Dietitian - 12/31/2021 15:16 EDT Nutrition Care Level : Moderate Idalia Watson, Web Content Director - 12/31/2021 14:28 EDT documented in this encounter Plan of Treatment Not on file documented as of this encounter Visit Diagnoses Not on filedocumented in this encounter
--- OUTSIDE RECORDS SUMMARY | 2025-04-13 09:56 | XMS_ITS | Encounter Summary ---
Author Organization [employer] ([place], [place], [place], [place]) Address [address] [place] [address] Care Team Providers Care Outreach Educator Name Role Phone Unavailable Primary Care Provider Unavailabl e Encounter Details Date Type Department Care Team (Late st Contact Info) Description 12/29/2021 Transcribed Document [facility] [place] [address] [place] [address] ProviderDario MD [address] [place], [place] [id number] Social History Tobacco Use Types Packs/Day Years [...]
--- OUTSIDE RECORDS SUMMARY | 2025-04-13 09:56 | XMS_ITS | Encounter Summary ---
Author Organization [facility] Address [address] [place] [address] Care Team Providers Care Hand Tire Trimmer Name Role Phone Gustavo Leggett MD Primary Care Provider + [phone] Reason for Visit * Reason Onset Date Comments HOME HEALTH ORDER 11/13/2020 Encounter Details Date Type Department Care Team (Late st Contact Info) Description 11/13/2020 Telephone [facility] [address] [facility] [address] [place] [address] Tyree Tan MD HOME HEALTH ORDER Social History Tobacco Use Types Packs/Day Years Used Date Smoking Tobacco: Never Smokeless Tobacco: Never Alcohol Use Standard Drinks/Week Comments No 0 (1 standard drink = 0.6 oz pur e alcohol) AUDIT-C Answer Date Recorded Q1: How often do you have a drink containing alc ohol? Never 08/19/2020 Average Number of Drinks Not on file 020 Frequency of Binge Drinking Not on file 03/2020 Sex and Gender Information Value Date Recorded Sex Assigned at Not on file Legal Sex Male 1:18 PM EDT Gender Identity Not on file Sexual Orientation Not on file documented as of this encounter Miscellaneous Notes * Telephone Encounter - Juany Morales MA - 11/14/2020 1:54 PM EST Tried to call [facility] again, and voice mail states to try later, but unable to leave a message. * Telephone Encounter - Juany Morales MA - 11/14/2020 12:58 PM EST Called [facility] at [phone] and there was no answer,simply said not available to try later. Will try to reach them later. * Telephone Encounter - Betty Ramires MA - 11/13/2020 3:58 PM EST Called [facility] and left a detailed msg for Mar Laura (?) RN requesting a call back to discuss seeing this pt. * Telephone Encounter - Zhane Nam PA-C - 11/13/2020 3:27 PM EST Nyki, this HH agency does not want to work with patient due to him being inappropriate. Please callthem and ask them if they are willing to see him, if not he will have to have someone else. DC * Telephone Encounter - Betty Ramires MA - 11/13/2020 10:57 AM EST HH order pended. * Telephone Encounter - Carla Shipman RegSched Rep - 11/13/2020 10:36 AM EST Caller: PT Relationship: SELF Best call back number: [phone] What orders are you requesting (i.e. lab or imaging): HOME HEALTH PHYSICAL THERAPY In what timeframe would the patient need to come in: [place] Where will you receive your lab/imaging services: [facility] Additional notes: PT STATES THAT HE WOULD LIKE TO HAVE HOME HEALTH ORDERED FOR PHYSICAL THERAPY ANDTHE LAST TIME HE SAID THAT [facility] TOLD HIM HE WOULD NEED 12 VISITS 2 TIMES A WEEK. HE SAID LAST TIME THEY TRIED TO SET IT UP IT DIDN'T GO THROUGH. PLEASE ADVISE THANK YOU documented in this encounter Plan of Treatment Not on file documented as of this encounter Visit Diagnoses Not on filedocumented in this encounter Additional Health Concerns Infection Onset Date Last Indicated Resolved Time COVID Screen (preop/placement) 10/28/2021 10/28/2021 10/28/2021 2:07 [...] as of this encounter Care Teams Hand Tire Trimmer Relationship Specialty Start Date End Date Gustavo Leggett MD [address] [facility] [address] [place] [address] PCP - General Adolescent Medicine 07/14/23 documented as of this encounter
--- OUTSIDE RECORDS SUMMARY | 2025-04-13 09:56 | XMS_ITS | Encounter Summary ---
Author Organization [employer] ([place], [place], [place], [place]) Address [address] [place] [address] Care Team Providers Care Painter Sign Maintenance Name Role Phone Unavailable Primary Care Provider Unavailabl e Encounter Details Date Type Department Care Team (Late st Contact Info) Description 12/28/2021 Transcribed Document [facility] Radiology 1 [place] [address] Anali South MD [address] [facility] [address] [place] [address] Social History Tobacco Use Types [...] HPI: 66 YO male who presented to [facility] from [facility] secondary recurrent seizure activity. He is known to our practice from [facility]. Pt has hx of seizures, DM II, HTN, HLD, functional quadraplegia. It appears that pt had increased seizure activity in 10/2021 when at [facility] (or may have led to him going there). Keppra was added to lamictal at that time, then was hospitalized again at [facility] and dilantin was added to regimen. Despite med changes pt has continued to have seizures. It appears dilantin was low and provider had plans to start titration at [facility]. Pt had seizure for [address] [facility] yesterday and was still having seizure when transported by EMS. O2 sat was starting to drop. Previously he had had a seizure over 10 min. Do to recurrent seizures he was transferred here to [facility] for further work up. No records from [facility] ER were seen on pts chart. Pt says he has felt feverish. No cp, soa. Has had occ cough. Concerned about sacral/buttock wound. States that previously at [facility] it was almost healed now it is bad again. C/o pain around right parotid gland. States it was found at [facility]. States they have been swabbing his mouth with lemon juice, that helped at first but now swollen. Pt has dentures but not with him. At [facility] he was started on azithromycin and prednisone for parotid swelling. Prior hospitalizations: 11/2721-12/18/21 - [facility] - pt was unrepsonsive at [facility] and went to ER. Dc summary said seizures and DKA?. He was intubated for protection. Extubated on 12/08. He had some intermittent seizures during his stay. Dilantin was added. Seizures were stopped with Ativan. Lamictal dose was increased. EEG showed no seizure activity per D/c summary and pt returned to [facility]. He was found to have [...] also of 50 mg q8h. 08/2021 - [facility] -- Right foot gangrene, s/p [...] -12/25 - well controlled. A1c 6.4 Dysphagia -ELECTRICIAN eval -thickened liquids and pureed diet for [...]
--- OUTSIDE RECORDS SUMMARY | 2025-04-13 09:56 | XMS_ITS | Encounter Summary ---
Author Organization [employer] ([place], [place], [place], [place]) Address [address] [place] [address] Care Team Providers Care Direct Entry Midwife Name Role Phone Unavailable Primary Care Provider Unavailabl e Encounter Details Date Type Department Care Team (Late st Contact Info) Description 12/28/2021 Transcribed Document [facility] Family Medicine [facility] [address] ProviderDario MD [address] [place], [place] [id number] Social History Tobacco Use Types Packs/Day Years [...] EEG-video monitoring was performed using the 32-channel Orthohub monitoring system. The seizure detection computer was [...] epileptogenicity in the left anterior temporal region. /[id number] MD TERRENCE Dong/ALECIA / TAF / MODL /[id number] Electronically signed by Miguel Ángel Cruz Conversion Distance Learning Administrator Cerner at 12/29/2022 4:59 PM CDT documented in this encounter Plan of Treatment Not on file documented as of this encounter Visit Diagnoses Not on filedocumented in this encounter
--- OUTSIDE RECORDS SUMMARY | 2025-04-13 09:56 | XMS_ITS | Encounter Summary ---
Author Organization [facility] ([place], [place], [place], [place]) Address [address] [place] [address] Care Team Providers Care Early Learning Teacher Name Role Phone Unavailable Primary Care Provider Unavailkatharine e Encounter Details Date Type Department Care Team (Late st Contact Info) Description 12/30/2021 Transcribed Document [facility] Family Medicine [address] [place] [address] ProviderDario MD [address], [place] [phone] Social History Tobacco Use Types Packs/Day Years Used Date Smoking Tobacco: Never Assessed Sex and Gender Information Value Date Recorded Sex Assigned at Not on file Legal Sex Male 5:38 PM CDT Gender Identity Not on file Sexual Orientation Not on file documented as of this encounter Miscellaneous Notes * Cerner Conversion Note - Historical ProviderMD - 12/30/2021 2:00 AM CDT Copy Center Specialist Details Entered On: 12/30/2021 2:14 EDT Performed [...]
--- OUTSIDE RECORDS SUMMARY | 2025-04-13 09:56 | XMS_ITS | Encounter Summary ---
Author Organization [employer] ([place], [place], [place], [place]) Address [address] [place] [address] Care Team Providers Care Correctional Treatment Specialist Name Role Phone Unavailable Primary Care Provider Unavailabl e Encounter Details Date Type Department Care Team (Late st Contact Info) Description 12/24/2021 Transcribed Document [facility] Radiology 1 [place] [address] Anali South MD [address] [facility] [address] [place] [address] Social History Tobacco Use Types [...] HPI: 66 YO male who presented to [facility] from [facility] secondary recurrent seizure activity. He is known to our practice from [facility]. Pt has hx of seizures, DM II, HTN, HLD, functional quadraplegia. It appears that pt had increased seizure activity in 10/2021 when at [facility] (or may have led to him going there). Keppra was added to lamictal at that time, then was hospitalized again at [facility] and dilantin was added to regimen. Despite med changes pt has continued to have seizures. It appears dilantin was low and provider had plans to start titration at [facility]. Pt had seizure for 19 min at SNF yesterday and was still having seizure when transported by EMS. O2 sat was starting to drop. Previously he had had a seizure over 10 min. Do to recurrent seizures he was transferred here to [facility] for further work up. No records from [facility] ER were seen on pts chart. Pt says he has felt feverish. No cp, soa. Has had occ cough. Concerned about sacral/buttock wound. States that previously at [facility] it was almost healed now it is bad again. C/o pain around right parotid gland. States it was found at [facility]. States they have been swabbing his mouth with lemon juice, that helped at first but now swollen. Pt has dentures but not with him. At Snf he was started on azithromycin and prednisone for parotid swelling. Prior hospitalizations: 11/2721-12/18/21 - [facility] - pt was unrepsonsive at [facility] and went to ER. Dc [...] of 50 mg q8h. 08/2021 - [facility] -- Right foot gangrene, s/p right [...] no cp : FC put in at [facility] at some point previously; no dysuria Neuro: [...] II -SSI -check a1c, FSBS ACHS Dysphagia -FIELD TECH eval -thickened liquids and pureed diet for now. CAD s/p cardiac stent in past. PAD s/p right AKA. DVT prophylaxis -eliquis Assessment and treatment plan made in conjunction with Daphne South MD documented in this encounter Plan of Treatment Not on file documented as of this encounter Visit Diagnoses Not on filedocumented in this encounter
--- OUTSIDE RECORDS SUMMARY | 2025-04-13 09:56 | XMS_ITS | Encounter Summary ---
Author Organization [employer] ([place], [place], [place], [place]) Address [address] [place] [address] Care Team Providers Care Grain Miller Helper Name Role Phone Unavailable Primary Care Provider Unavailkatharine e Encounter Details Date Type Department Care Team (Late st Contact Info) Description 12/24/2021 Transcribed Document [facility] Family Medicine [facility] [place] [address] ProviderDario MD [address] [place], [place] [phone] Social History Tobacco Use Types Packs/Day Years [...] MENDOZA OT Student - 12/26/2021 16:00 EDT Hydraulic Lift Driver Goals, OT Grooming LTG Grid Goal #1 [...] MENDOZA OT Student - 12/26/2021 16:00 EDT [place] OT Charges OT Eval Moderate Complexity : 1 OT Ther Activities Ea 15 Min : 1 LIANG HAWLEY OTR/Silva - 12/26/2021 16:24 EDT documented in this encounter Plan of Treatment Not on file documented as of this encounter Visit Diagnoses Not on filedocumented in this encounter
--- OUTSIDE RECORDS SUMMARY | 2025-04-13 09:56 | XMS_ITS | Encounter Summary ---
Author Organization [employer] ([place], [place], [place], [place]) Address [address] [place] [address] Care Team Providers Care Gleason Operator Name Role Phone Unavailable Primary Care Provider Unavailabl e Encounter Details Date Type Department Care Team (Late st Contact Info) Description 01/01/2022 Transcribed Document [facility] [place] Family Medicine [address] [place] [address] ProviderDario MD [address] [place], [place] [phone] Social History Tobacco Use Types Packs/Day Years [...]
--- OUTSIDE RECORDS SUMMARY | 2025-04-13 09:56 | XMS_ITS | Encounter Summary ---
Author Organization [employer] ([place], [place], [place], [place]) Address [address] [place] [address] Care Team Providers Care Pig Iron Loader Name Role Phone Unavailable Primary Care Provider Unavailabl e Encounter Details Date Type Department Care Team (Late st Contact Info) Description 12/31/2021 Transcribed Document [facility] Radiology 1 [place] [address] Anali South MD [address] [address] Social History Tobacco Use Types [...] or apply Heel Medix boots Apply Aloe Waterproof 3 (clear) or Sensicare 3 (white Zinc) [...] 66 YO male who presented to [facility] from [facility] secondary recurrent seizure activity. He is known to our practice from [facility]. Pt has hx of seizures, DM II, HTN, HLD, functional quadraplegia. It appears that pt had increased seizure activity in 10/2021 when at [facility] (or may have led to him going there). Keppra was added to lamictal at that time, then was hospitalized again at [facility] and dilantin was added to regimen. Despite med changes pt has continued to have seizures. It appears dilantin was low and provider had plans to start titration at . Pt had seizure for 19 min at yesterday and was still having seizure when transported by EMS. O2 sat was starting to drop. Previously he had had a seizure over 10 min. Do to recurrent seizures he was transferred here to [facility] for further work up. No records from [facility] ER were seen on pts chart. Pt says he has felt feverish. No cp, soa. Has had occ cough. Concerned about sacral/buttock wound. States that previously at it was almost healed now it is bad again. C/o pain around right parotid gland. States it was found at [facility]. States they have been swabbing his mouth with lemon juice, that helped at first but now swollen. Pt has dentures but not with him. At [facility] he was started on azithromycin and prednisone [...] -12/25 - well controlled. A1c 6.4 Dysphagia -CLINICAL SAFETY SPECIALIST eval -thickened liquids and pureed diet [...]
--- OUTSIDE RECORDS SUMMARY | 2025-04-13 09:56 | XMS_ITS | Encounter Summary ---
Author Organization [employer] ([place], [place], [place], [place]) Address [address] [place] [address] Care Team Providers Care Electric Dolly Operator Name Role Phone Unavailable Primary Care Provider Unavailabl e Encounter Details Date Type Department Care Team (Late st Contact Info) Description 12/24/2021 Transcribed Document [facility] Family Medicine [address] [place] [address] ProviderDario MD [address] [place], [place] [id number] Social History Tobacco Use Types Packs/Day Years [...]
--- OUTSIDE RECORDS SUMMARY | 2025-04-13 09:56 | XMS_ITS | Encounter Summary ---
Author Organization [employer] ([place], [place], [place], [place]) Address [address] [place] [address] Care Team Providers Care Human Services Assistant Name Role Phone Unavailable Primary Care Provider Unavailabl e Encounter Details Date Type Department Care Team (Late st Contact Info) Description 12/24/2021 Transcribed Document [facility] [place] Family Medicine [facility] [place] [address] ProviderDario MD [address] [place], [place] [address] Social History Tobacco Use Types Packs/Day Years [...] hyperlipidemia, diabetes who was transferred today from [facility] for recurrent seizures. The patient himself is a vague historian, but does provide the history that he was admitted to [facility] in October for intractable seizures and started on 2 new antiepileptic medications at that time. He could not tell me which antiepileptic medications were new, although I believe that they are Keppra and Dilantin. He apparently has been on Lamictal for a longer period of time. He tells me he has had seizures for 8-9 years and follows with a neurologist in [place] whom I believe is named Dr. Carter. [...] been residing at [facility] which is a rehab facility following his admission to [facility] in October. He tells me that typically he lives at home fairly independently, although does have home health services. Presently, he is denying headache or any other significant complaints. PAST MEDICAL HISTORY: Seizure disorder, type 2 diabetes, hypertension, hyperlipidemia, right fpfda-izz-ihqs amputation in August 2021 for infection. HOME [...] labored. EXTREMITIES: Again, there is a right cnyix-mqj-xbbl amputation. Left leg does not show any [...] weeks. Apparently, he was recently hospitalized at [facility] with intractable seizures resulting in the addition [...] the patient as well as a physician volunteer services assistant with the admitting team. Neurology will continue to follow closely. /[id number] MD KIYA Monique/ALECIA / KIYA / DARIO /[id number] documented in this encounter Plan of Treatment Not on file documented as of this encounter Visit Diagnoses Not on filedocumented in this encounter
--- OUTSIDE RECORDS SUMMARY | 2025-04-13 09:56 | XMS_ITS | Encounter Summary ---
Author Organization [employer] ([place], [place], [place], [place]) Address [address] [place] [address] Care Team Providers Care Construction Trades Teacher Name Role Phone Unavailable Primary Care Provider Unavailabl e Encounter Details Date Type Department Care Team (Late st Contact Info) Description 12/31/2021 Transcribed Document [facility] [place] [facility] [place] [address] ProviderDario MD [address] [place], [place] [id number] Social History Tobacco Use Types Packs/Day Years [...] On: 12/31/2021 8:44 EDT by CINTHYA RIVERA RN-Clinical Research NurseLayboy Tender Progress Note Discharge Arrangements : Patient Post-Acute [...] Condition of Patient Patient Discharge Goal : correction facility CINTHYA RIVERA RN-Clinical Research Nurse - 12/31/2021 8:44 EDT Narrative Progress Note Narrative Progress Note : updated F.C. with pt/ot notes via naviheal in order to facilitate precert. Historical Progress Note : HD#6 ELOS-4 RAR-moderate CM sent PT/OT updates to [facility] for insurance precert approval. CM rescheduled [facility] Patient is medically ready for discharge. CM sent updates to [facility]. [facility] intiated insurance precert today. DCP-Transfer back [facility] when insurance precert is approved. [facility] scheduled tentively for 6pm om 12/30 in case insurance precert is approved. Vaishnavi Cunha V Barber Or Beauty Shop Manager Residential Case Manager - 12/30/21 13:29:12 HD#6 ELOS-4 RAR-moderate CM sent PT/OT updates to [facility] for insurance precert approval. CM rescheduled [facility]'s [facility] transport to Wednesday, 12/31 at 7pm. Per Lisandra with [facility], transport time is ok since he is returning there. If precert isn't approved, CM will need to reschedule transportation. DCP-[facility] pending insurance precert approved. [facility] scheduled tentively for 7pm om 12/31 in case insurance precert is approved. Vaishnavi Cunha V Barber Or Beauty Shop Manager Residential Case Manager - 12/30/21 13:33:56 Patient is medically ready for discharge. CM sent updates to [facility]. [facility] intiated insurance precert today. DCP-Transfer back to [facility] when insurance precert is approved. [facility] scheduled tentively for 6pm om 12/30 in case insurance precert is approved. Vaishnavi Cunha V Barber Or Beauty Shop Manager Residential Case Manager - 12/29/21 12:04:25 Patient is medically ready for discharge. Cm sent updates to [facility]. CM sent message to Lisandra from [facility] asking for precert with insurance to be started as soon as possible. Cm scheduled [facility] for 6 pm 12/29 if bed is available and precert obtained. [facility] will need to be changed if patient is not approved to go. CM will continue to follow. CALIXTO MCCABE Barber Or Beauty Shop Manager-Combination Machine Tender - 12/28/21 13:59:37 CINTHYA RIVERA, RN-Clinical Research Nurse - 12/31/2021 8:44 EDT Electronically signed by Anthony [facility] Conversion Scientific Linguist Cerner at 12/29/2022 4:46 PM CDT documented in this encounter Plan of Treatment Not on file documented as of this encounter Visit Diagnoses Not on filedocumented in this encounter
--- OUTSIDE RECORDS SUMMARY | 2025-04-13 09:56 | XMS_ITS | Encounter Summary ---
Author Organization [employer] ([place], [place], [place], [place]) Address [address] [place] [address] Care Team Providers Care Operations Tech Name Role Phone Unavailable Primary Care Provider Unavailabl e Encounter Details Date Type Department Care Team (Late st Contact Info) Description 12/31/2021 Transcribed Document [facility] Family Medicine [facility] [place] [address] ProviderDario MD [address] [place], [place] [address] Social History Tobacco Use Types Packs/Day Years [...] On: 12/31/2021 15:09 EDT by CINTHYA RIVERA, RN-Supervisor MachiningSap Trainer Progress Note Discharge Arrangements : Patient Post-Acute [...] Condition of Patient Patient Discharge Goal : jail facility Were Referrals Sent to Post Acute Providers : Yes Certification for Post-Acute Care Initiated : 12/30/2021 EDT CINTHYA RIVERA, JESSEE-Supervisor Machining - 12/31/2021 15:09 EDT Narrative Progress Note Narrative Progress Note : HD#7 RRS MOD Per F.C. liaison, no precert obtained for 12.31. CM rescheduled ems for 01.01@1900. BS nurse and attending updated. Historical Progress Note : updated F.C. with pt/ot notes via naveal in order to facilitate precert. CINTHYA RIVERA, RN-Supervisor Machining - 12/31/21 08:46:17 HD#6 ELOS-4 RAR-moderate CM sent PT/OT updates to [facility] for insurance precert approval. CM rescheduled [facility] s [facility] transport Patient is medically ready for discharge. CM sent updates to [facility]. [facility] intiated insurance precert today. DCP-[facility] when insurance precert is approved. [facility] scheduled tentively for 6pm om 12/30 in case insurance precert is approved. Vaishnavi Cunha V Supervisor Cook Room [facility] - 12/30/21 13:29:12 HD#6 ELOS-4 RAR-moderate CM sent PT/OT updates to [facility] for insurance precert approval. CM rescheduled [facility]'s [facility] transport to Wednesday, 12/31 at 7pm. Per Lisandra with [facility], transport time is ok since he is returning there. If precert isn't approved, CM will need to reschedule transportation. DCP-[facility] pending insurance precert approved. [facility] ambulance scheduled tentively for 7pm om 12/31 in case insurance precert is approved. Vaishnavi Cunha V Supervisor Cook Room [facility] - 12/30/21 13:33:56 Patient is medically ready for discharge. CM sent updates to [facility]. [facility] intiated insurance precert today. DCP-[facility] when insurance precert is approved. [facility] scheduled tentively for 6pm om 12/30 in case insurance precert is approved. Vaishnavi Cunha V Supervisor Cook Room [facility] - 12/29/21 12:04:25 Patient is medically ready for discharge. Cm sent updates to [facility]. CM sent message to Lisandra from [facility] asking for precert with insurance to be started as soon as possible. Cm scheduled [facility] for 6 pm 12/29 if bed is available and precert obtained. [facility] will need to be changed if patient is not approved to go. CM will continue to follow. CALIXTO MCCABE, Supervisor Cook Room-Linux Server Engineer - 12/28/21 13:59:37 CINTHYA RIVERA, RN-Supervisor Machining - 12/31/2021 15:09 EDT Electronically signed by Miguel Ángel Cruz Conversion Milling/Polishing Operator Cerner at 12/29/2022 4:47 PM CDT documented in this encounter Plan of Treatment Not on file documented as of this encounter Visit Diagnoses Not on filedocumented in this encounter
--- OUTSIDE RECORDS SUMMARY | 2025-04-13 09:56 | XMS_ITS | Encounter Summary ---
Author Organization [employer] ([place], [place], [place], [place]) Address [address] [place] [address] Care Team Providers Care Plastic Mixer Name Role Phone Unavailable Primary Care Provider Unavailabl e Encounter Details Date Type Department Care Team (Late st Contact Info) Description 12/25/2021 Transcribed Document [facility] [place] [facility] [place] [address] ProviderDario MD [address] [place], [place] [id number] Social History Tobacco Use Types Packs/Day Years [...] 12/26/2021 3:18 EDT Electronically signed by Anthony [facility] Conversion Boiler Out Cerner at 12/29/2022 4:54 PM CDT documented in this encounter Plan of Treatment Not on file documented as of this encounter Visit Diagnoses Not on filedocumented in this encounter
--- OUTSIDE RECORDS SUMMARY | 2025-04-13 09:56 | XMS_ITS ---
Author Organization [employer] Care Team Providers Care Piano Builder Name Role Phone Cinthia Robertson Unavailable UnavailYUMIKO Gimenez Unavailable Unavailable Allergies and adverse reactions Code CodeSystem Substance Reaction Severity StartDate Concern Status Wellbutrin Unknown 03/06/2022 active Toradol Unknown 03/06/2022 active 5489 RXNORM HYDROcodone Unknown 03/06/2022 active 2670 RXNORM Codeine Unknown 03/06/2022 active Care Team Name Role Address Phone Organization Dates YUMIKO MEHTA PCP [address] [place] [facility] [address], [facility], [facility] (Office): : Yoni 03/06/2022 - 01/25/2023 Cinthia Robertson [address] [place] [facility] [address], [place] (Office): : [place] 03/06/2022 - 01/25/2023 Goals Section Goals Description [...] completed Pneumococcal conjugate vaccine 15-valent (PCV15), polysaccharide AAD485 conjugate, adjuvant, preservative free 215 CVX created [...] 1 ACUTE RESPIRATORY FAILURE WITH HYPOXIA [address] active 2 ANEMIA, UNSPECIFIED [address] active 3 BENIGN NEOPLASM OF MENINGES, UNSPECIFIED [address] active 4 DYSPHAGIA, UNSPECIFIED [address] active 5 ENCEPHALOPATHY, UNSPECIFIED [address] active 6 MAJOR DEPRESSIVE DISORDER, SINGLE EPISODE, MILD [address] active 7 POLYNEUROPATHY, UNSPECIFIED [address] active 8 PRIMARY ADRENOCORTICAL INSUFFICIENCY [address] active 9 REPEATED FALLS [address] active 10 SUICIDAL IDEATIONS [address] active 11 PRESSURE ULCER OF SACRAL REGION, UNSTAGEABLE [address] active 12 EPILEPSY, UNSPECIFIED, NOT INTRACTABLE, WITH STATUS EPILEPTICUS [address] active 13 ACQUIRED ABSENCE OF RIGHT LEG ABOVE KNEE [address] active 14 ACUTE PYELONEPHRITIS [address] active 15 ESSENTIAL (PRIMARY) HYPERTENSION [address] active 16 HYPERLIPIDEMIA, UNSPECIFIED [address] active 17 PARAPLEGIA, UNSPECIFIED [address] active 18 PRESSURE ULCER OF OTHER SITE, STAGE 2 2 10/20/[address] completed 19 SEPSIS, UNSPECIFIED ORGANISM [address] active 20 SPINAL STENOSIS, THORACIC REGION [address] active 21 TYPE 2 DIABETES MELLITUS WITH DIABETIC NEPHROPATHY [address] active Reason for Referral No Reasons for Referral Entered Social History Social History Observation Description Start Date End Date Code Code System Current Smoking Status Tobacco smoking consumption unknown 504605732 SNOMED CT Sex Assigned At Male 1955 77151-8 [facility] Gender Identity Vital Signs Code Code System Vitals Name Values and Units Timing Information 8462-4 [facility] Blood Pressure-Diastolic Value=92 Un its=mmHg 01/25/2023 8480-6 [facility] Blood Pressure-Systolic Zzjcm=826 Un its=mmHg 01/25/2023 8867-4 [facility] Heart rate Value=99.0 Units=/min 82695-8 [facility] Pain Level Value=0.0 01/25/2023 8310-5 [facility] Body Temperature Value=97.5 Units= F 01/25/2023 2339-0 [facility] Blood Sugar Myprw=881.0 Units=mg/dL 01/19/2023 9279-1 [facility] Respiratory Rate Value=18.0 Units=/m in 01/09/2023 69615-7 [facility] O2 % BldC Oximetry Value=96.0 Units= % 01/09/2023 58052-9 [facility] Weight Obhdg=717.8 Units=Lbs 06/2023 8302-2 [facility] Height Value=72.0 Units=Inches 05/23/2022
--- OUTSIDE RECORDS SUMMARY | 2025-04-13 09:56 | XMS_ITS | Encounter Summary ---
Author Organization [employer] ([place], [place], [place], [place]) Address [address] [place] [address] Care Team Providers Care Milk Powder Grinder Name Role Phone Unavailable Primary Care Provider Unavailabl e Encounter Details Date Type Department Care Team (Late st Contact Info) Description 12/25/2021 Transcribed Document [facility] [place] [facility] [place] [address] ProviderDario MD [address] [place], [place] [id number] Social History Tobacco Use Types Packs/Day Years Used Date Smoking Tobacco: Never Assessed Sex and Gender Information Value Date Recorded Sex Assigned at Not on file Legal Sex Male 5:38 PM CDT Gender Identity Not on file Sexual Orientation Not on file documented as of this encounter Miscellaneous Notes * Cerner Conversion Note - Historical ProviderMD - 12/25/2021 9:[address] [facility] SUPPLIER QUALITY ENGINEERING MANAGER Charges Entered On: 12/25/2021 9:42 EDT Performed On: 12/25/2021 9:41 EDT by LUKE ACKERMAN SLP [facility] SUPPLIER QUALITY ENGINEERING MANAGER Charges Screen For Speech Therapy : 1 LUKE ACKERMAN SLP - 12/25/2021 9:41 EDT documented in this encounter Plan of Treatment Not on file documented as of this encounter Visit Diagnoses Not on filedocumented in this encounter
--- OUTSIDE RECORDS SUMMARY | 2025-04-13 09:56 | XMS_ITS | Encounter Summary ---
Author Organization [employer] ([place], [place], [place], [place]) Address [address] [place] [address] Care Team Providers Care Shearing Machine Operator Name Role Phone Unavailable Primary Care Provider Unavailabl e Encounter Details Date Type Department Care Team (Late st Contact Info) Description 12/29/2021 Transcribed Document [facility] [place] [place] Medicine [facility] [place] [address] ProviderDario MD [address], [place] [address] Social History Tobacco Use Types Packs/Day Years [...] 12/29/2021 12:00 EDT by Vaishnavi Cunha V, Motor Coach Supervisor Slurry Tank Operator Care Management Progress Note Discharge Arrangements [...] Patient Patient Discharge Goal : correction facility Is the Patient Meeting Medical Necessity : Yes Physician Agreeable to Move Forward with D/C Plan? : Yes Did you Attend Multidisciplinary Rounds? : Yes Vaishnavi Cunha V, Motor Coach Supervisor Slurry Tank Operator - 12/29/2021 12:00 EDT Narrative Progress Note Narrative Progress Note : Patient is medically ready for discharge. CM sent updates to [facility]. [facility] intiated insurance precert today. DCP-Transfer back to [facility] when insurance precert is approved. [facility] ambulance [...] CM will continue to follow. CALIXTO MCCABE, Motor Coach Supervisor-Motion Picture Director - 12/28/21 13:59:37 Vaishnavi Cunha V, Motor Coach Supervisor Slurry Tank Operator - 12/29/2021 12:00 EDT documented in this encounter Plan of Treatment Not on file documented as of this encounter Visit Diagnoses Not on filedocumented in this encounter
--- OUTSIDE RECORDS SUMMARY | 2025-04-13 09:56 | XMS_ITS | Encounter Summary ---
Author Organization [employer] ([place], [place], [place], [place]) Address [address] [place] [address] Care Team Providers Care Risk Lead Name Role Phone Unavailable Primary Care Provider Unavailabl e Encounter Details Date Type Department Care Team (Late st Contact Info) Description 12/31/2021 Transcribed Document [facility] [place] Medicine [address] [place] [address] ProviderDario MD [address] [place], [place] [address] Social History Tobacco Use Types Packs/Day Years [...]
--- OUTSIDE RECORDS SUMMARY | 2025-04-13 09:56 | XMS_ITS | Encounter Summary ---
Author Organization [employer] ([place], [place], [place], [place]) Address [address] [place] [address] Care Team Providers Care Restuarant Crew Worker Name Role Phone Unavailable Primary Care Provider Unavailabl e Encounter Details Date Type Department Care Team (Late st Contact Info) Description 01/01/2022 Transcribed Document [facility] [place] [address] [place] [address] ProviderDario MD [address] [place], [place] [address] Social History Tobacco Use Types Packs/Day Years [...]
--- OUTSIDE RECORDS SUMMARY | 2025-04-13 09:56 | XMS_ITS | Encounter Summary ---
Author Organization [employer] ([place], [place], [place], [place]) Address [address] [place] [address] Care Team Providers Care Business Objects Developer Name Role Phone Unavailable Primary Care Provider Unavailabl e Encounter Details Date Type Department Care Team (Late st Contact Info) Description 12/28/2021 Transcribed Document [facility] [place] [facility] [place] [address] ProviderDario MD [address], [place] [address] Social History Tobacco Use Types Packs/Day Years [...] EEG-video monitoring was performed using the 32-channel [employer] monitoring system. The seizure detection computer was [...] noted suggestive of mild diffuse cerebral dysfunction. /[id number] MD TERRENCE Dong/AQ / TAF / MODL /[id number] Electronically signed by Anthony [facility] Conversion Zipper Repairer Cerner at 12/29/2022 4:36 PM CDT documented in this encounter Plan of Treatment Not on file documented as of this encounter Visit Diagnoses Not on filedocumented in this encounter
--- OUTSIDE RECORDS SUMMARY | 2025-04-13 09:56 | XMS_ITS | Encounter Summary ---
Author Organization [employer] ([place], [place], [place], [place]) Address [address] [place] [address] Care Team Providers Care Hand Model Name Role Phone Unavailable Primary Care Provider Unavailabl e Encounter Details Date Type Department Care Team (Late st Contact Info) Description 12/24/2021 Transcribed Document [facility] Family Medicine [facility] [place] [address] ProviderDario MD [address] [place], [place] [address] Social History Tobacco Use Types Packs/Day Years [...] Communication Barrier : None Primary Language : Bangladeshi Any Spiritual/Cultural Needs or Requests : No [...] : Other: tachycardia Nail Bed Color : [place] Chest Pain : No Detailed Cardiovascular Assessment [...]
--- OUTSIDE RECORDS SUMMARY | 2025-04-13 09:56 | XMS_ITS | Encounter Summary ---
Author Organization [employer] ([place], [place], [place], [place]) Address [address] [place] [address] Care Team Providers Care Radio Time Salesperson Name Role Phone Unavailable Primary Care Provider Unavailabl e Encounter Details Date Type Department Care Team (Late st Contact Info) Description 01/01/2022 Transcribed Document [facility] [place] [facility] [place] [address] ProviderDario MD [address] [place] [address] Social History Tobacco Use Types [...] 01/01/2022 14:06 EDT by Vaishnavi Cunha V, County Agent Child Adolescent Care Final Discharge Planning Discharge Arrangements : Patient Post-Acute Information Patient Name: VITALY POOL Gender: Male : [birth year] Age: 66 Years [place] Referral(s): Service: Organization: Business Address: Phone Number: Long Term [facility] [address], [place], [address] Patient Offered Choice/Affiliations Explained : [...] SNF with Medicare Certification-03 Vaishnavi Cunha V, County Agent Child Adolescent Care - 01/01/2022 14:06 EDT Final Narrative Note Final Narrative Note : DC back to [facility] at 7pm. Vaishnavi Cunha V County Agent Child Adolescent Care - 01/01/2022 14:06 EDT Electronically signed by Olena Cruz Conversion Table Games Dual Rate Supervisor Cerner at 12/29/2022 4:31 PM CDT documented in this encounter Plan of Treatment Not on file documented as of this encounter Visit Diagnoses Not on filedocumented in this encounter
--- OUTSIDE RECORDS SUMMARY | 2025-04-13 09:56 | XMS_ITS | Encounter Summary ---
Author Organization [employer] ([place], [place], [place], [place]) Address [address] [place] [address] Care Team Providers Care Armored Car Messenger Name Role Phone Unavailable Primary Care Provider Unavailabl e Encounter Details Date Type Department Care Team (Late st Contact Info) Description 01/01/2022 Transcribed Document [facility] [place] Family Medicine [address] [place] [address] ProviderDario MD [address], [place] [phone] Social History Tobacco Use Types Packs/Day Years [...] 01/01/2022 16:26 EDT Electronically signed by Anthony [facility] Conversion Naturalization Examiner Cerner at 12/29/2022 4:56 PM CDT documented in this encounter Plan of Treatment Not on file documented as of this encounter Visit Diagnoses Not on filedocumented in this encounter
--- OUTSIDE RECORDS SUMMARY | 2025-04-13 09:56 | XMS_ITS | Encounter Summary ---
Author Organization [facility] Address [address] [place] [address] Care Team Providers Care Direct Marketing Analyst Name Role Phone Gustavo Leggett MD Primary Care Provider + [phone] Reason for Visit * Reason Onset Date Comments [facility] - [facility] HE[facility] AND RX REFILL 08/12/2020 Encounter Details Date Type Department Care Team (Late st Contact Info) Description 08/12/2020 Telephone [facility] NEUROSURGERY [address] [facility] [address] [place] [address] Tra Gregg PA-C [address] [facility] [address] [place] [address] [facility] - [facility] HEALTH AND RX REFILL Social History Tobacco Use Types Packs/Day Years [...] encounter Miscellaneous Notes * Telephone Encounter - Jo Chaney MA - 08/15/2020 5:26 PM EST Medication called in. Valium 5mg 1 tab PO QD PRN # 30 NR- Please sign * Telephone Encounter - Jo Chaney MA - 08/15/2020 5:11 PM EST Pt requesting refill on Valium. * Telephone Encounter - Crys Cobb - 08/15/2020 4:43 PM EST Not sure if I should have sent this back into the clinical pool for the medication request below. * Telephone Encounter - Crys Cobb - 08/13/2020 9:05 AM EST Office note faxed to [employer] ([phone]). * Telephone Encounter - Betty Ramires MA - 08/12/2020 1:14 PM EST [facility] 02/15/2020 Diazepam 5MG 1954 60 30 [facility] 2 03/09/2020 Diazepam 5MG 1954 60 30 [facility] 2 04/12/2020 Diazepam 5MG 1954 60 30 [facility] 2 05/09/2020 Diazepam 5MG 1954 90 30 [facility] 2 06/10/2020 Diazepam 5MG 1954 60 20 [facility] 2 07/18/2020 Diazepam 5MG 1954 30 15 [facility] 1 * Telephone Encounter - Francisca Jensen RegSched Rep - 08/12/2020 12:02 PM EST THE PATIENT HAD AN APPOINTMENT ON 08/05 WITH TRA GREGG AND WAS TOLD SHE WOULD CALL IN AN ORDER FOR MORE HOME HEALTH AND PHYSICAL THERAPY WITH [facility]. [facility] LAST CAME TO HIS HOUSE LAST Wednesday ANDTHEY SAID THEY HAD NOT RECEIVED ANY ADDITIONAL ORDERS YET. THE PATIENT ALSO REQUESTED A REFILL FOR DIAZEPAM. HE HAS FOUR LEFT. HIS PHARMACY IS [facility] IN [place], [place]. PLEASE ADVISE. [facility] CAN BE REACHED AT [phone], ASK FOR BRANDEE OR ABEBE. THE PATIENT CAN BE REACHED AT [phone] THANK YOU! documented in this encounter Plan of Treatment [...] documented as of this encounter Care Teams Direct Marketing Analyst Relationship Specialty Start Date End Date Gustavo Leggett MD [address] [place] [address] [place] [address] PCP - General Adolescent Medicine 07/14/23 documented as of this encounter
--- OUTSIDE RECORDS SUMMARY | 2025-04-13 09:56 | XMS_ITS | Encounter Summary ---
Author Organization [employer] ([place], [place], [place], [place]) Address [address] [place] [address] Care Team Providers Care Deck Hand Name Role Phone Unavailable Primary Care Provider Unavailabl e Encounter Details Date Type Department Care Team (Late st Contact Info) Description 12/25/2021 Transcribed Document [facility] [place] [address] ProviderDario MD [address] [place] [id number] Social History Tobacco Use Types Packs/Day Years Used Date Smoking Tobacco: Never Assessed Sex and Gender Information Value Date Recorded Sex Assigned at Not on file Legal Sex Male 5:38 PM CDT Gender Identity Not on file Sexual Orientation Not on file documented as of this encounter Miscellaneous Notes * Cerner Conversion Note - Historical ProviderMD - 12/25/2021 9:42 AM CDT Discharge Summary, TETRYL WRINGER OPERATOR Entered On: 12/25/2021 9:43 EDT Performed On: 12/25/2021 9:42 EDT by LUKE ACKERMAN SLP Discharge Notation. TETRYL WRINGER OPERATOR Dysphagia Treatment After Discharge : No Discharge Diet : Regular Discharge Liquids : Thin Discharge Compensatory Strategies : Upright for meals Repeat Instrumental Prior To : Not applicable Repeat Instrumental Timeline : n/a Discharge Summary Comment, TETRYL WRINGER OPERATOR : Pt was positioned upright at 90 [...] 9:42 EDT Swallow Plan/Goals Swallow LTG Grid TETRYL WRINGER OPERATOR [employer]fuels Plant Manager Goal #1 TETRYL WRINGER OPERATOR Biofuels Plant Manager Goal #2 Swallow LTG : Safely tolerates [...]
--- OUTSIDE RECORDS SUMMARY | 2025-04-13 09:56 | XMS_ITS | Encounter Summary ---
Author Organization [employer] ([place], [place], [place], [place]) Address [address] [place] [address] Care Team Providers Care Prototype Special Build Name Role Phone Unavailable Primary Care Provider Unavailabl e Encounter Details Date Type Department Care Team (Late st Contact Info) Description 01/01/2022 Transcribed Document [facility] Radiology [address] [place] [address] Anali South MD [address] [address] Social History Tobacco Use Types [...] or apply Heel Medix boots Apply Aloe [place] 3 (clear) or Sensicare 3 (white Zinc) [...] 66 YO male who presented to [facility] from [facility] secondary recurrent seizure activity. He is known to our practice from [facility]. Pt has hx of seizures, DM II, HTN, HLD, functional quadraplegia. It appears that pt had increased seizure activity in 10/[address] [facility] (or may have led to him going there). Keppra was added to lamictal at that time, then was hospitalized again at [facility] and dilantin was added to [...] seizures he was transferred here to [facility] for further work up. No records from [facility] ER were seen on pts chart. Pt says he has felt feverish. No cp, soa. Has had occ cough. Concerned about sacral/buttock wound. States that previously at [facility] it was almost healed now it is bad again. C/o pain around right parotid gland. States it was found at [facility]. States they have been swabbing his mouth with lemon juice, that helped at first but now swollen. Pt has dentures but not with him. At [facility] he was started on azithromycin and prednisone [...] sputum. Urinating well. Ready to discharge to [facility]. PE: Vitals Signs (last 24 hrs) Last [...]
--- OUTSIDE RECORDS SUMMARY | 2025-04-13 09:56 | XMS_ITS | Encounter Summary ---
Author Organization [employer] ([place], [place], [place], [place]) Address [address] [place] [address] Care Team Providers Care Woolen Suiting Shrinker Name Role Phone Unavailable Primary Care Provider Unavailabl e Encounter Details Date Type Department Care Team (Late st Contact Info) Description 12/29/2021 Transcribed Document [facility] Radiology [address] [place] [address] Anali South MD [facility] [address] [address] Social History Tobacco Use Types [...] motion, waiting for placement back to full [place]. Currently wearing oxygen that he does not wear at baseline so we will attempt to wean this. Latest readings on monitor all at 100%. Patient oriented to person and time. Denies f/c/s. no soa, chest pain. no n/v/d. no abd pain. no dysuria, hematuria HPI: 66 YO male who presented to [facility] from [facility] secondary recurrent seizure activity. He is known to our practice from [facility]. Pt has hx of seizures, DM II, HTN, HLD, functional quadraplegia. It appears that pt had increased seizure activity in 10/2021 when at [facility] (or may have led to him going there). Keppra was added to lamictal at that time, then was hospitalized again at [facility] and dilantin was added to [...] for further work up. No records from [facility] ER were seen on pts chart. Pt says he has felt feverish. No cp, soa. Has had occ cough. Concerned about sacral/buttock wound. States that previously at [facility] it was almost healed now it is bad again. C/o pain around right parotid gland. States it was found at [facility]. States they have been swabbing his mouth with lemon juice, that helped at first but now swollen. Pt has dentures but not with him. At [facility] he was started on azithromycin and prednisone for parotid swelling. Prior hospitalizations: 11/2721-12/18/21 - [facility] - pt was unrepsonsive at [facility] and went to ER. Dc summary said seizures and DKA?. He was intubated for protection. Extubated on 12/08. He had some intermittent seizures during his stay. Dilantin was added. Seizures were stopped with Ativan. Lamictal dose was increased. EEG showed no seizure activity per D/c summary and pt returned to [facility]. He was found to have parotid swelling during this time. D/c summary also has Acute resp failure, acute renal failure, hyperkalemia and hypernatremia. 10/2021-12/01/2021 - [facility] - hip and back pain [...] of 50 mg q8h. 08/2021 - [facility] -- Right foot gangrene, s/p right [...] -12/25 - well controlled. A1c 6.4 Dysphagia -HYDROLOGY TECHNICIAN eval -thickened liquids and pureed diet for [...]
--- OUTSIDE RECORDS SUMMARY | 2025-04-13 09:56 | XMS_ITS | Clinical Summary ---
Author Organization [facility] Address [address] [place] [address] Care Team Providers Care Evaporator Helper Name Role Phone Gustavo Leggtet MD Primary Care Provider + [phone] Allergies Active Allergy Reactions Criticality Noted Date Comments Bupropion Unknown (See Comments) Low 03/06/2022 Codeine Nausea Only Low 04/28/2019 Hydrocodone Unknown (See Comments) Low 03/06/2022 Levetiracetam Other (See Comments) Medium 08/01/2023 Acute psychosis Ketorolac Tromethamine Unknown (See Comments) Low 03/06/2022 Medications * This document contains information received from the source organization and may not represent a complete record from that organization. aspirin 81 MG EC tablet Take 1 tablet by mouth Daily. OTC Active furosemide (LASIX) 40 MG tablet Take 1 tablet by mouth Daily. 0 Active busPIRone (BUSPAR) 5 MG tablet Take 1 tablet by mouth 3 (Three) Times a Day. Active polyethylene glycol (MIRALAX) 17 g packet Take 17 g by mouth Daily As Needed. Active multivitamin with minerals tablet tablet Take 1 tablet by mouth Daily. Active lamoTRIgine (LaMICtal) 150 MG tablet Take 1 tablet by mouth Every Night. Patient takes 100 mg in AM, 250 mg in PM Active lamoTRIgine (LaMICtal) 100 MG tablet Take 1 tablet by mouth 2 (Two) Times a Day. 100mg AM + 250mg PM 3 Active baclofen (LIORESAL) 10 MG tablet Take 1 tablet by mouth Every 12 (Twelve) Hours. 60 tablet 08/14/2023 9:51 AM EST 12/02/202 3 Active Insulin Glargine (BASAGLAR KWIKPEN) 100 UNIT/ML injection pen Inject 44 Units under the skin into the appropriate area as directed Every Night. For 30 days 4 Active clopidogrel (PLAVIX) 75 MG tablet Take 1 tablet by mouth Daily. 30 tablet 02/05/2024 3:20 PM EDT 4 Active folic acid (FOLVITE) 1 MG tablet Take 1 tablet by mouth Daily. Active gabapentin (NEURONTIN) 100 MG capsule Take 2 capsules by mouth 3 (Three) Times a Day As Needed. Active pantoprazole (PROTONIX) 40 MG EC tablet Take 1 tablet by mouth 2 (Two) Times a Day. Active carvedilol (COREG) 3.125 MG tablet Take 1 tablet by mouth 2 (Two) Times a Day With Meals. 60 tablet 09/17/2024 10:47 AM EST 5 Active finasteride (PROSCAR) 5 MG tablet Take 1 tablet by mouth Daily. 5 Active Active Problems Problem Noted Date Diagnosed Date Type 2 diabetes mellitus, wi th long-term current use of insulin 08/31/2024 Arteriovenous fistula, acquired 08/31/2024 CHARLIE (acute kidney injury) 02/05/2024 Wound infection 01/15/2024 Type 2 diabetes mellitus wit h diabetic peripheral angiopathy without gangrene, without long-term current use of insulin 01/15/2024 Mixed hyperlipidemia 01/15/2024 S/P AKA (above knee amputation), right 4 Peripheral vascular disease 09/01/2023 Altered mental status 08/03/2023 Left leg cellulitis 07/22/2023 Gangrene 07/07/2023 History of DVT (deep vein thrombosis) 07/07/2023 Sepsis 07/07/2023 Hx of migraine headaches 07/07/2023 Coronary artery disease invo lving [place] coronary artery of [place] heart without angina pectoris 07/07/2023 Pressure injury of buttock, stage 1 06/13/2023 Pressure ulcers of skin of multiple topographic sites 06/13/2023 Overview (06/17/2023): Added automatically from request for surgery [id number] Cellulitis of left foot 06/13/2023 Overview (06/17/2023): Added automatically from request for surgery [id number] Acute encephalopathy 06/21/2022 Adrenal insufficiency 06/21/2022 Dysphagia 06/21/2022 Moderate malnutrition 05/13/2022 Possible meningioma 05/12/2022 Pseudoseizures 05/09/2022 Overview (12/14/2022): 12/12/2022 DX Regulatory Update Obesity (BMI 30-39.9) 05/09/2022 Suicidal ideations, possible 05/04/2022 Lactic acidosis 05/03/2022 Severe malnutrition 11/21/2021 Left hip pain 10/28/2021 Hyperkalemia 10/28/2021 Cervical spondylosis with myelopathy 08/05/2020 Acute deep vein thrombosis (DVT) of lower extrem ity 04/28/2019 Type 2 diabetes mellitus wit h foot ulcer, without long-term current use of insulin 04/28/2019 Frequent falls 04/28/2019 Primary hypertension 04/28/2019 Peripheral neuropathy 04/28/2019 Spinal stenosis of lumbar region 04/28/2019 Foot infection 04/28/2019 Spinal stenosis of thoracic region 04/28/2019 Overview (05/02/2019): Added automatically from request for surgery [id number] Complicated migraines H/O traumatic brain injury Resolved Problems Problem Noted Date Diagnosed Date Resolved Date Confusion 05/11/2022 05/14/2022 Somnolence 05/09/2022 05/14/2022 Cellulitis 04/28/2019 12/01/2021 Cervical disc herniation 04/28/201901/2020 Overview (05/03/2019): Added automatically from request for surgery [id number] Immunizations Immunization Administration Dates Next Due COVID-19 (MODERNA) 1st,2nd,3 rd Dose Monovalent 12/17/2020,11/20/2020 Fluad Quad 65+ 08/21/2020 Fluzone High-Dose 65+YRS 08/02/2019 Fluzone High-Dose 65+yrs 06/13/2022,08/21/2020,1 10/02/2018 Pneumococcal Conjugate 13-Valent (PCV13) 017 Pneumococcal Conjugate 15-Valent (PCV15) 017 TST, UF 03/06/2022 Td, Not Adsorbed 04/22/2019 Tdap 04/22/2019 Zostavax 11/11/2016 Family History Medical History Relation Name Comments Alcohol abuse Father Relation Name Status Comments Father Mother Social History Tobacco Use Types Packs/Day Years Used Date Smoking Tobacco: Never Passive Smoke Exposure: Never Smokeless Tobacco: Never Tobacco Cessation:Counseling Given: Yes Alcohol Use Standard Drinks/Week Comments No 0 (1 standard drink = 0.6 oz pur e alcohol) [facility] Utilities Answer Date Recorded In the past 12 months has e electric, gas, oil, or water company threatened to shut off services in your home? No 09/01/2024 AUDIT-C Answer Date Recorded Q1: How often do you have a drink containing alcohol? Never 08/31/2024 Q2: How many drinks containi ng alcohol do you have on a typical day when you are drinking? Patient does not drink Q3: How often do you have si x or more drinks on one occasion? Never 08/31/2024 Overall Financial Resource Strain (CARDIA) Answe r Date Recorded How hard is it for you to pa y for the very basics like food, housing, medical care, and heating? Somewhat hard 09/14/2024 PHQ-2 Answer Date Recorded Retired PHQ-9: Brief Depression Severity Measure Score 2 08/09/2023 [facility] - Occupational Stress Questionnaire Answer Date Recorded Do you feel stress - tense, restless, nervous, or anxious, or unable to sleep at night because your mind is troubled all the time - these days? Only a little 09/14/2024 Exercise Vital Sign Answer Date Recorde d On average, how many days pe r week do you engage in moderate to strenuous exercise (like a brisk walk)? 0 days 09/01/2024 On average, how many minutes do you engage in exercise at this level? 0 min 09/01/2024 Hunger Vital Sign Answer Date Recorded Within the past 12 months, y ou worried that your food would run out before you got the money to buy more. Never true 09/01/20 24 Within the past 12 months, t he food you bought just didn't last and you didn't have money to get more. Never true 09/01/2024 PRAPARE - Transportation Answer Date Re corded In the past 12 months, has l ack of transportation kept you from medical appointments or from getting medications? No 08/14 In the past 12 months, has l ack of transportation kept you from meetings, work, or from getting things needed for daily living? No 09/01/2024 Abuse Screen Answer Date Recorded Feels Unsafe at Home or Work/School no 08/31/2024 Feels Threatened by Someone no 08/13 Does Anyone Try to Keep You From Having Contact with Others or Doing Things Outside Your Home? no 08/31/2024 Physical Signs of Abuse Present no 08/31/2024 Housing Stability Answer Date Recorded Current Living Arrangements home 08/14 Potentially Unsafe Housing Conditions none 09/01/2024 Family and Community Support Answer Antoine e Recorded If for any reason you need h elp with day-to-day activities such as bathing, preparing meals, shopping, managing finances, etc., do you get the help you need? I get all the help I need 09/14/2024 How often do you feel lonely or isolated from those around you? Rarely 09/14/2024 Employment Answer Date Recorded Do you want help finding or keeping work or a job? I do not need or want help 09/01/2024 Disabilities Answer Date Recorded Difficulty Concentrating, Remembering or Making Decisions no 08/31/2024 Difficulty Managing Errands Independently yes 08/31/2024 Education Answer Date Recorded Do you want help with school or training? For example, starting or completing job training or getting a high school diploma, GED or equivalent No 09/01/2024 Preferred Language Japanese 09/01/2024 PHQ-2 Answer Date Recorded Patient Health Questionnaire-2 Score 0 09/14/2024 Sex and Gender Information Value Date Recorded Sex Assigned at Not on file Legal Sex Male 1:18 PM EDT Gender Identity Not on file Sexual Orientation Not on file Last Filed Vital Signs Vital Sign Reading Time Taken Comments Blood Pressure 137/71 09/20/2024 3:00 PM EST Pulse 55 09/20/2024 3:00 PM EST Temperature 36.6 C (97.8 F) 09/20/2024 3:00 PM EST Respiratory Rate 18 09/20/2024 3:00 PM EST Oxygen Saturation 93% 09/20/2024 3:00 PM EST Inhaled Oxygen Concentration - - Weight 122 kg (268 lb) 09/01/2024 11:28 AM EST Height 182.9 cm (6') 09/01/2024 11:28 AM EST Body Mass Index 36.35 09/01/2024 11:28 AM EST Plan of Treatment Health Maintenance Due Date Last Done Comments DIABETIC EYE EXAM 01/19/1965 DIABETIC FOOT EXAM 01/19/1965 URINE MICROALBUMIN-CREATININ E RATIO (uACR) 01/19/1964 COLON CANCER SCREENING 5 YEA R SIGMOIDOSCOPY [address] COLONOGRAPHY 1999 FECAL OCCULT BLOOD TEST 1999 FIT Testing (1 year) 1999 ZOSTER VACCINE (2 of 3) 01/06/2017 11/11/2016 Pneumococcal Vaccine 50+ (2 of 2 - PPSV23) 11/11/2017 11/11/2016, 11/11/2016 ANNUAL WELLNESS VISIT 05/05/2019 COLOGUARD 02/12/2022 02/12/2019 COLORECTAL CANCER SCREENING 02/12/2022 COVID-19 Vaccine (2023-2 5 season) 2024 08/25/2022, 06/03/2022, 12/17/2020, Additional history exists LIPID PANEL 08/01/2024 08/01/2023 HEMOGLOBIN A1C 03/03/2025 09/02/2024, 05/0 12/2023, 08/01/2023, Additional history exists INFLUENZA VACCINE 06/13/2025 06/13/2022, , 08/21/2020, Additional history exists TDAP/TD VACCINES (3 - Td or Tdap) 04/22/2029 019, 04/22/2019 HEPATITIS C SCREENING Completed 05/28/2022, 022 Medical Devices Implanted Type Area Security Patrol Driver Device Identifier Shelf Expiration Date Model / Serial / Lot Fltr Jug Vena Cava Van Zandt Del - [id number] Implanted:Qty: 1 on 05/02/2019 by Pedro Zapien MD at [facility] Implant BARD PERIPHERAL VASCULAR [id number] / / [id number] Description:MRI safety: Non- clinical testing demonstrated that the Van Zandt Vena Cava Filter is MR Conditional. A patient with this implant can be scanned safely immediately after placement under the following conditions: Static magnetic field of 3-Jessica or 1.5-Jessica Spatial gradient magnetic field of 720-Gauss/cm or less Maximum MR system reported iwetl-sdfe-rtmujcbe specific absorption rate (CHRISTEL) of 2-W/kg in the normal operating mode Hemost Abs Surgifoam Sz100 8x12 10mm - [id number] Implanted:Qty: 1 on 07/17/2020 by Tyree Tan MD at [facility] Implant Spine Cervical ETHICON DIV OF J AND J 1974 / / Kt Seal Hemos Abs Floseal Matrx Fast/Prep 10ml - [id number] Implanted:Qty: 1 on 07/17/2020 by Tyree Tan MD at [facility] Implant Spine Cervical [facility] 10/08/2021 [id number] / / [id number] Putty Dbm Coke 6cc - [id number] - [id number] Implanted:Qty: 1 on 07/17/2020 by Tyree Tan MD at [facility] Implant Spine Cervical [employer] 06/05/2022 [id number] / [id number] / Spacr Lrd Spine Endoskeleton Nanolock Tc 6deg [id number] Sm - [id number] Implanted:Qty: 1 on 07/17/2020 by Tyree Tan MD at [facility] Implant Spine Cervical [employer] 09/24/2024 [id number] / / [id number] Coil Marlin Emb Fill Complex Sft 2mm 2cm - [id number] Implanted:Qty: 1 on 09/07/2024 by Jared Marcano MD at [facility] Implant [facility] 04/05/2031 [id number] / / [id number] Coil Marlin Emb Fill Complex Jsft 15cm - [id number] Implanted:Qty: 1 on 09/07/2024 by Jared Marcano MD at [facility] Implant [facility] 03/21/2030 [id number] / / [id number] Coil Marlin Emb Fill Complex Jsft 8mm 60cm - [id number] Implanted:Qty: 1 on 09/07/2024 by Jared Marcano MD at [facility] Implant PENUMBRA 07/19/2030 [id number] / / [id number] Procedures Procedure Name Priority Date/Time Associated Diagnosis Comments HEMOGLOBIN A1C Routine 09/02/2024 3:35 AM EST LIPID PANEL Routine 08/01/2023 4:42 AM EST from Last 3 Months or Most Recently Relevant to Health Maintenance Results * (ABNORMAL) Hemoglobin A1c (09/02/2024 3:35 AM EST) Pathologist [facility] Hemoglobin A1C 7.60(H) 4.80 - 5.60 % 09/02/2024 4:54 AM EST [facility] Blood Venipuncture / Unknown 09/02/2024 3:35 AM EST 09/02/2024 4:29 AM EST Narrative [facility] - 09/02/2024 4:54 AM EST Hemoglobin A1C Ranges: Increased Risk for Diabetes 5.7% to 6.4% Diabetes >= 6.5% Diabetic Goal < 7.0% Alondra Lanza MD LAB BLOOD ORDERABLES Fi nal Result [facility]
[address] [place] [address], * (ABNORMAL) Lipid Panel (08/01/2023 4:42 AM EST) Total Cholesterol 148 0 - 200 mg/dL 08/01/2023 5:39 AM EST [facility] Triglycerides 115 0 - 150 mg/dL 08/01/2023 5:39 AM EST [facility] HDL Cholesterol 37(L) 40 - 60 mg/dL 08/01/2023 5:39 AM EST [facility] LDL Cholesterol 90 0 - 100 mg/dL 08/01/2023 5:39 AM EST [facility] VLDL Cholesterol 21 5 - 40 mg/dL 08/01/2023 5:39 AM EST [facility] LDL/HDL Ratio 2.38 08/01/2023 5:39 AM EST [facility] Blood Venipuncture / Unknown 08/01/2023 4:42 AM EST 08/01/2023 4:57 AM EST [facility] - 08/01/2023 5:39 AM EST Cholesterol Reference Ranges (U.S. Department of Health and Human Services ATP III Classifications) Desirable <200 mg/dL Borderline High 200-239 mg/dL High Risk >240 mg/dL Triglyceride Reference Ranges (U.S. Department of Health and Human Services ATP III Classifications) Normal <150 mg/dL Borderline High 150-199 mg/dL High 200-499 mg/dL Very High >500 mg/dL HDL Reference Ranges (U.S. Department of Health and Human Services ATP III Classifications) Low <40 mg/dl (major risk factor for CHD) High >60 mg/dl ('negative' risk factor for CHD) LDL Reference Ranges (U.S. Department of Health and Human Services ATP III Classifications) Optimal <100 mg/dL Near Optimal 100-129 mg/dL Borderline High 130-159 mg/dL High 160-189 mg/dL Very High >189 mg/dL us January Jasbir REGULATOR MECHANIC LAB BLOOD ORDERABLES Fi nal Result [facility]
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 01/16/2024 Insurance [employer] PPO Advance Directives Documents on File Type Date Recorded Patient Accounts Specialist Expl anation LIVING WILL - SCAN 12/03/2021 8:00 AM MONA NG WILL, BHLEX, 11/24/2021 LIVING WILL - SCAN 11/24/2021 12:29 PM JAMIE ING WILL, BHLEX, 11/24/2021 * CPR (Attempt to Resuscitate) (Latest Code Status on File) Date Activated Date Inactivated Comments 08/31/2024 5:18 PM 09/20/2024 11:28 PM Question Answer Comments Code Status (Patient has no pulse and is not breathing): CPR (Attempt to Resuscitate) Medical Interventions (Patie nt has pulse or is breathing): Full Support Comments: has POA his sister Level Of Support Discussed With: Patient * CPR (Attempt to Resuscitate) Date Activated Date Inactivated Comments 08/31/2024 5:12 PM 08/31/2024 5:18 PM Question Answer Comments Code Status (Patient has no pulse and is not breathing): CPR (Attempt to Resuscitate) Medical Interventions (Patie nt has pulse or is breathing): Full Support Level Of Support Discussed With: Patient * No CPR (Do Not Attempt to Resuscitate) Date Activated Date Inactivated Comments 08/31/2024 3:17 PM 08/31/2024 5:12 PM Question Answer Comments Code Status (Patient has no pulse and is not breathing): No CPR (Do Not Attempt to Resuscitate) Medical Interventions (Patie nt has pulse or is breathing): Limited Support Medical Intervention Limits: No intubati on (DNI)No antiarrhythmic drugsNo cardioversionNo dialysisNo artificial nutrition Level Of Support Discussed With: Patient * CPR (Attempt to Resuscitate) Date Activated Date Inactivated Comments 01/15/2024 4:13 PM 02/06/2024 12:44 AM Question Answer Comments Code Status (Patient has no pulse and is not breathing): CPR (Attempt to Resuscitate) Medical Interventions (Patie nt has pulse or is breathing): Full Support Level Of Support Discussed With: Patient * CPR (Attempt to Resuscitate) Date Activated Date Inactivated Comments 09/01/2023 5:53 AM 09/15/2023 6:44 PM Question Answer Comments Code Status (Patient has no pulse and is not breathing): CPR (Attempt to Resuscitate) Medical Interventions (Patie nt has pulse or is breathing): Full Support Level Of Support Discussed With: Patient Care Teams Evaporator Helper Relationship Specialty Start Date End Date Gustavo Leggett MD [facility] [place] [address] [address] PCP - General Adolescent Medicine 07/14/23
--- OUTSIDE RECORDS SUMMARY | 2025-04-13 09:56 | XMS_ITS | Encounter Summary ---
Author Organization [facility] ([place], [place], [place], [place]) Address [address] [place] [id number] Care Team Providers Care Java Security Architect Name Role Phone Unavailable Primary Care Provider Unavailabl e Encounter Details Date Type Department Care Team (Late st Contact Info) Description 01/01/2022 Transcribed Document [facility] [place] [facility] [address] [place] [address] ProviderDario MD [address] [place], [place] [id number] Social History Tobacco Use Types Packs/Day Years [...]
--- OUTSIDE RECORDS SUMMARY | 2025-04-13 09:56 | XMS_ITS | Encounter Summary ---
Author Organization [facility] ([place], [place], [place], [place]) Address [address] [place] [address] Care Team Providers Care Chainstitch Felled Seam Operator Name Role Phone Unavailable Primary Care Provider Unavailabl e Encounter Details Date Type Department Care Team (Late st Contact Info) Description 12/30/2021 Transcribed Document [facility] [place] [facility] [place] [address] ProviderDario MD [address] [id number] Social History Tobacco Use Types Packs/Day Years [...] 12/30/2021 13:25 EDT by Vaishnavi Cunha V, Educational Program Assistant Lithograph Press Operator Tinware Care Management Progress Note Discharge Arrangements : [...] Multidisciplinary Rounds? : Yes Vaishnavi Cunha V Educational Program Assistant Lithograph Press Operator [employer] - 12/30/2021 13:25 EDT Narrative Progress Note Narrative Progress Note : HD#6 ELOS-4 RAR-moderate CM sent PT/OT updates to [facility] for insurance precert approval. CM rescheduled patient's [facility] ambulance transport to Wednesday, 12/31 at 7pm. Per Lisandra with [facility], transport time is ok since he is returning there. If precert isn't approved, CM will need to reschedule transportation. DCP-Transfer back to [facility] pending insurance precert approved. [facility] ambulance scheduled tentively for 7pm om 12/31 in case insurance precert is approved. Vaishnavi Cunha V Educational Program Assistant Lithograph Press Operator [employer]ware - 12/30/2021 13:31 EDT Historical Progress Note : Patient is medically ready for discharge. CM sent updates to [facility]. [facility] intiated insurance precert today. DCP-Transfer back to [facility] when insurance precert is approved. [facility] ambulance scheduled tentively for 6pm om 12/30 in case insurance precert is approved. Vaishnavi Cunha V Educational Program Assistant Lithograph Press Operator [employer]ware - 12/29/21 12:04:25 Patient is medically ready for discharge. Cm sent updates to [facility]. CM sent message to Lisandra from [facility] asking for precert with insurance to be started as soon as possible. Cm scheduled [facility] for 6 pm 12/29 if bed is available and precert obtained. [facility] will need to be changed if patient is not approved to go. CM will continue to follow. CALIXTO MCCABE Educational Program Assistant-Footwear Sales Representative - 12/28/21 13:59:37 Vaishnavi Cunha V Educational Program Assistant Lithograph Press Operator [employer] - 12/30/2021 13:25 EDT Electronically signed by [facility] Conversion Reinspector Cerner at 12/29/2022 4:59 PM CDT documented in this encounter Plan of Treatment Not on file documented as of this encounter Visit Diagnoses Not on filedocumented in this encounter
--- OUTSIDE RECORDS SUMMARY | 2025-04-13 09:56 | XMS_ITS | Encounter Summary ---
Author Organization [employer] ([place], [place], [place], [place]) Address [address] [place] [address] Care Team Providers Care Director Of Player Personnel Name Role Phone Unavailable Primary Care Provider Unavailabl e Encounter Details Date Type Department Care Team (Late st Contact Info) Description 12/24/2021 Transcribed Document [facility] [place] [facility] [place] [address] ProviderDario MD [address], [place] [id number] Social History Tobacco Use Types Packs/Day Years [...] LUKE ACKERMAN, ITA General Information Visit Type, INVESTOR RELATIONS MANAGER : Initial evaluation Patient Orders : Speech Language Pathology Modified Barium Swallow Study -111 Start: 12/25/21 8:47:00 EDT, Routine, For Other (see special instructions), Dysphagia - INGRID ELLSWORTH PA-FAM INVESTOR RELATIONS MANAGER Bedside Swallow Evaluation - Start: 12/24/21 15:16:00 EDT, Routine, For Swallow Eval and Treat -111 INGRID ELLSWORTH PA-FAM Admission Date : Admission Date/Time: 12/24/21 13:29:00 Medical Chart Reviewed, INVESTOR RELATIONS MANAGER : Yes Personal Devices : Personal Devices No Devices Recorded Assistive Devices : Assistive Devices No Devices Recorded Active Diagnoses : 12/24/2021 12:00 Seizure 12/24/2021 12:00 Seizure - Recurrent Therapy Diagnosis, INVESTOR RELATIONS MANAGER : Pt with recent hx for dysphagia ?secondary to intubation. Recommendations: 1. Ok to continue with current puree/nectar diet 2. MBS today for further pharyngeal assessment Previous Swallow Precautions : No previous ST in EMR Diet/Intake Prior to Current Admission : Puree/nectar Diet/Intake During Current Admission : puree/nectar Intubation Comment, INVESTOR RELATIONS MANAGER : n/a Vital Signs RTF : Vitals [...] 8:53 EDT General Status Patient Received Status, INVESTOR RELATIONS MANAGER : Supine in bed Treatment Start Time, INVESTOR RELATIONS MANAGER : 12/25/2021 8:33 EDT Patient Left Status, INVESTOR RELATIONS MANAGER : Long sitting in bed Treatment End Time, INVESTOR RELATIONS MANAGER : 12/25/2021 8:45 EDT Treatment Time, INVESTOR RELATIONS MANAGER : 12 Minute(s) LUKE ACKERMAN SLP - [...] Oral Mechanism for Daily Living : Intact INVESTOR RELATIONS MANAGER Cough : Strong Facial Appearance: : Symmetrical [...] evidence of dysphagia present Further Evaluation Required, INVESTOR RELATIONS MANAGER : MBS today Swallowing Outcome Measures : Functional Oral Intake Scale (FOIS) Functional Oral Intake Scale (FOIS) : Level V Bedside Swallow Overall Impressions : Pt admitted from SNF w/ intractable seizures. Per pt report/chart review, pt w/ recent hx for dysphagia given intubation during acute hospital stay. PMHx is significant for seizure disorder, DM II, HTN, HLD, and functional quadraplegia. INVESTOR RELATIONS MANAGER consulted for bedside dysphagia evaluation. Today, pt is alert and oriented x4. No difficulty participating in evaluation. Oral skills appear functional despite edentulism. No overt pharyngeal patterns appreciated with thin via straw, pudding, or solids. Given acute hx of dysphagia, pt appears safe to continue with a puree diet and nectar liquids. Medication in puree. Ok for ice after oral care. INVESTOR RELATIONS MANAGER will proceed with MBS prior to diet advancement. Pt is agreeable to plan for MBS this AM. RN alerted to results and recommendations. LUKE ACKERMAN SLP - 12/25/2021 8:53 EDT Swallow Recommendations Recommended Diet Type, SwRec : Pureed Recommended Liquid Diet, SwRec : [place] Feeding Presentation Style, SwRec : No restrictions Swallow Position, SwRec : Upright 90 degrees Comp Strategies/Sw Precautions, SwRec : Upright for meals Supervision Level w/Meals, SwRec : Independent, complete Recommended Med Present, SwRec : With puree/pudding Recommended Exam, Sw Rec : MBSS/VFSS Repeat Swallow Exam Timeframe : 1-3 days LUKE ACKERMAN SLP - 12/25/2021 8:53 EDT Therapy Indication Assessment INVESTOR RELATIONS MANAGER Indicated : Yes INVESTOR RELATIONS MANAGER Interdisciplinary Consultation Needs : No INVESTOR RELATIONS MANAGER Problem List : Impaired, Swallowing Potential Barriers to INVESTOR RELATIONS MANAGER : None evident INVESTOR RELATIONS MANAGER Rehabilitation Potential : Good LUKE ACKERMAN SLP - 12/25/2021 8:53 EDT Swallow Plan/Goals Treatment Frequency, INVESTOR RELATIONS MANAGER : 5 times per wk Treatment Plan Est w/Pt/Caregvr, Swallow : Yes Treatment Duration, INVESTOR RELATIONS MANAGER : One week Therapy at Next Level of Care, INVESTOR RELATIONS MANAGER : longterm facility LUKE ACKERMAN SLP - 12/25/2021 8:53 EDT Swallow LTG Grid INVESTOR RELATIONS MANAGER Skein Spooler Goal #1 INVESTOR RELATIONS MANAGER Skein Spooler Goal #2 Swallow LTG : Safely tolerates [...] LUKE ACKERMAN SLP - 12/25/2021 8:53 EDT INVESTOR RELATIONS MANAGER Education Assessment Grid 1 Diet Recommendation : Verbalizes understanding Evaluation Results : Verbalizes understanding Instrumental Evaluation : Verbalizes understanding LUKE ACKERMAN SLP - 12/25/2021 8:[address] [facility] INVESTOR RELATIONS MANAGER Charges Evaluation Swallowing Function : 1 LUKE ACKERMAN SLP - 12/25/2021 8:53 EDT Anticipated Discharge Needs, INVESTOR RELATIONS MANAGER Anticipated Discharge to : Extended Care Facility Recommend Continued Therapy at Discharge : Yes (Comment: pending MBS [LUKE ACKERMAN SLP - 12/25/2021 8:53 EDT] ) LUKE ACKERMAN SLP - 12/25/2021 8:53 EDT documented in this encounter Plan of Treatment Not on file documented as of this encounter Visit Diagnoses Not on filedocumented in this encounter
--- OUTSIDE RECORDS SUMMARY | 2025-04-13 09:56 | XMS_ITS | Encounter Summary ---
Author Organization [employer] ([place], [place], [place], [place]) Address [address] [place] [address] Care Team Providers Care Material Yard Clerk Name Role Phone Unavailable Primary Care Provider Unavailabl e Encounter Details Date Type Department Care Team (Late st Contact Info) Description 01/01/2022 Transcribed Document [facility] [place] Family Medicine [address] [place] [address] ProviderDario MD [address], [place] [id number] Social History Tobacco Use Types Packs/Day Years [...]
--- OUTSIDE RECORDS SUMMARY | 2025-04-13 09:56 | XMS_ITS | Encounter Summary ---
Author Organization [employer] ([place], [place], [place], [place]) Address [address] [place] [address] Care Team Providers Care Sand Conditioner Name Role Phone Unavailable Primary Care Provider Unavailabl e Encounter Details Date Type Department Care Team (Late st Contact Info) Description 12/31/2021 Transcribed Document [facility] [place] Family Medicine [address] [place] [address] ProviderDario MD [address] [place], [place] [id number] Social History Tobacco Use Types Packs/Day Years Used Date Smoking Tobacco: Never Assessed Sex and Gender Information Value Date Recorded Sex Assigned at Not on file Legal Sex Male 5:38 PM CDT Gender Identity Not on file Sexual Orientation Not on file documented as of this encounter Miscellaneous Notes * Cerner Conversion Note - Historical ProviderMD - 12/31/2021 2:00 AM CDT Water/Wastewater Project Manager Details Entered On: 12/31/2021 2:31 EDT [...]
--- OUTSIDE RECORDS SUMMARY | 2025-04-13 09:56 | XMS_ITS | Encounter Summary ---
Author Organization [employer] ([place], [place], [place], [place]) Address [address] [place] [address] Care Team Providers Care Landcare Facilitator Name Role Phone Unavailable Primary Care Provider Unavailabl e Encounter Details Date Type Department Care Team (Late st Contact Info) Description 12/25/2021 Transcribed Document [facility] [place] Medicine [facility] [place] [address] ProviderDario MD [address], [place] [id number] Social History Tobacco Use Types Packs/Day Years [...] On: 12/25/2021 23:55 EDT by Smooth [place] Documentation Analyst Cert Lead Meds to Bed Enrollment Patient Enrollment Decision: : Yes/enroll in meds to bed program Smooth [place] Documentation Analyst Cert Lead - 12/26/2021 10:35 EDT documented in this encounter Plan of Treatment Not on file documented as of this encounter Visit Diagnoses Not on filedocumented in this encounter
--- OUTSIDE RECORDS SUMMARY | 2025-04-13 09:56 | XMS_ITS | Encounter Summary ---
Author Organization [employer] ([place], [place], [place], [place]) Address [address] [place] [address] Care Team Providers Care Men'S Leather Dress Belt Maker Name Role Phone Unavailable Primary Care Provider Unavailabl e Encounter Details Date Type Department Care Team (Late st Contact Info) Description 12/28/2021 Transcribed Document [facility] [place] Medicine [facility] [address] ProviderDario MD [address] [place], [place] [id number] Social History Tobacco Use Types Packs/Day Years [...] On: 12/28/2021 13:59 EDT by CALIXTO MCCABE, Physical Therapist Assistant-Student Life Advisor Care Management Progress Note Discharge Arrangements : [...] Condition of Patient Patient Discharge Goal : long-term facility Is the Patient Meeting Medical Necessity : Yes Did you Attend Multidisciplinary Rounds? : No CALIXTO MCCABE, Physical Therapist Assistant-Student Life Advisor - 12/28/2021 13:59 EDT Narrative Progress Note [...] CM will continue to follow. CALIXTO MCCABE, Physical Therapist Assistant-Student Life Advisor - 12/28/2021 13:59 EDT documented in this encounter Plan of Treatment Not on file documented as of this encounter Visit Diagnoses Not on filedocumented in this encounter
--- OUTSIDE RECORDS SUMMARY | 2025-04-13 09:56 | XMS_ITS | Encounter Summary ---
Author Organization [employer] ([place], [place], [place], [place]) Address [address] [place] [address] Care Team Providers Care Rib Bender Name Role Phone Unavailable Primary Care Provider Unavailabl e Encounter Details Date Type Department Care Team (Late st Contact Info) Description 12/29/2021 Transcribed Document [facility] [place] Medicine [facility] [place] [address] ProviderDario MD [address], [place] [phone] Social History Tobacco Use Types Packs/Day Years [...] in admission, no further spells after EEG tunnel heading supervisor for several days and otherwise has remained [...]
--- OUTSIDE RECORDS SUMMARY | 2025-04-13 09:56 | XMS_ITS | Encounter Summary ---
Author Organization [employer] ([place], [place], [place], [place]) Address [address] [place] [address] Care Team Providers Care Oil Recovery Operator Name Role Phone Unavailable Primary Care Provider Unavailabl e Encounter Details Date Type Department Care Team (Late st Contact Info) Description 12/28/2021 Transcribed Document [facility] [place] [facility] [place] [address] ProviderDario MD [address] [place], [place] [id number] Social History Tobacco Use Types Packs/Day Years [...]
--- OUTSIDE RECORDS SUMMARY | 2025-04-13 09:56 | XMS_ITS | Encounter Summary ---
Author Organization [employer] ([place], [place], [place], [place]) Address [address] [place] [address] Care Team Providers Care Blood Collector Name Role Phone Unavailable Primary Care Provider Unavailabl e Encounter Details Date Type Department Care Team (Late st Contact Info) Description 12/24/2021 Transcribed Document [facility] [place] Family Medicine [address] [place] [address] ProviderDario MD [address] [place], [place] [address] Social History Tobacco Use Types Packs/Day Years [...] 15:53 EDT by Juani Torrez Emergency Room Furniture Lumber Production Worker Phone Call for Consults Consult Phone Call/Page Attempt : First call Consult Reason : recurrent seizures Provider Service Notified Name : Neurology Physician Covering for Consult : CHAVA OCHOA MD-NORMA Date and Time Call Returned : 12/24/2021 15:53 EDT Consult, Additional Information : spoke with Chava combs taken Juani Torrez, Emergency Room Furniture Lumber Production Worker - 12/24/2021 15:53 EDT documented in this encounter Plan of Treatment Not on file documented as of this encounter Visit Diagnoses Not on filedocumented in this encounter
--- OUTSIDE RECORDS SUMMARY | 2025-04-13 09:56 | XMS_ITS | Encounter Summary ---
Author Organization [employer] ([place], [place], [place], [place]) Address [address] [place] [address] Care Team Providers Care Glass Pulverizer Equipment Operator Name Role Phone Unavailable Primary Care Provider Unavailabl e Encounter Details Date Type Department Care Team (Late st Contact Info) Description 12/29/2021 Transcribed Document [facility] [place] Family Medicine [address] [place] [address] ProviderDario MD [address] [place], [place] [phone] Social History Tobacco Use Types Packs/Day Years [...]
--- OUTSIDE RECORDS SUMMARY | 2025-04-13 09:56 | XMS_ITS | Encounter Summary ---
Author Organization [employer] ([place], [place], [place], [place]) Address [address] [place] [address] Care Team Providers Care Executive Chef Assistant Name Role Phone Unavailable Primary Care Provider Unavailabl e Encounter Details Date Type Department Care Team (Late st Contact Info) Description 01/01/2022 Transcribed Document [facility] [place] [facility] [place] [address] ProviderDario MD [address], [place] [id number] Social History Tobacco Use Types Packs/Day Years [...] rough night and was very aggitated. The superintendent police nurse and myself went in to do [...] now. And I will be contacting my ip technology transactions attorney about this stay. At this point, I left the room with the signed records request, and informed my newspaper distributor supervisor that I will not be going [...]
--- OUTSIDE RECORDS SUMMARY | 2025-04-13 09:56 | XMS_ITS | Encounter Summary ---
Author Organization [employer] ([place], [place], [place], [place]) Address [address] [place] [address] Care Team Providers Care Surgery Center Administrator Name Role Phone Unavailable Primary Care Provider Unavailabl e Encounter Details Date Type Department Care Team (Late st Contact Info) Description 12/24/2021 Transcribed Document [facility] [place] Family Medicine [address] [place] [address] ProviderDario MD [address], [place] [phone] Social History Tobacco Use Types Packs/Day Years [...] 15:16 EDT by Juani Torrez Emergency Room Frame Trimmer ED Event Note ED Event Date/Time : 12/24/2021 14:58 EDT ED Description of Event : Dr. South accounting assistant aware of the patient Juani Torrez Emergency Room Frame Trimmer - 12/24/2021 15:16 EDT documented in this encounter Plan of Treatment Not on file documented as of this encounter Visit Diagnoses Not on filedocumented in this encounter
--- OUTSIDE RECORDS SUMMARY | 2025-04-13 09:57 | XMS_ITS | Encounter Summary ---
Author Organization [employer] ([place], [place], [place], [place]) Address [address] [place] [address] Care Team Providers Care Manager Commercial Name Role Phone Unavailable Primary Care Provider Unavailabl e Encounter Details Date Type Department Care Team (Late st Contact Info) Description 12/25/2021 Transcribed Document [facility] [place] Medicine [facility] [place] [address] ProviderDario MD [address], [place] [phone] Social History Tobacco Use Types Packs/Day Years Used Date Smoking Tobacco: Never Assessed Sex and Gender Information Value Date Recorded Sex Assigned at Not on file Legal Sex Male 5:38 PM CDT Gender Identity Not on file Sexual Orientation Not on file documented as of this encounter Miscellaneous Notes * Cerner Conversion Note - Historical ProviderMD - 12/25/2021 9:41 AM CDT WAX BLENDER Therapy Screen Entered On: 12/25/2021 9:42 EDT Performed On: 12/25/2021 9:41 EDT by LUKE ACKERMAN SLP Therapy Screen Medical Chart Reviewed, WAX BLENDER : Yes Information Obtained From, WAX BLENDER : Patient Therapy Screen Completed, WAX BLENDER : Yes Recommendations for Evaluation WAX BLENDER : None Therapy Screen Comment, WAX BLENDER : Pt admitted w/ seizures. No overt communication/cognitive deficits appreciated at bedside. No further communication evaluation indicated. LUKE ACKERMAN SLP - 12/25/2021 9:41 EDT Electronically signed by Anthony [facility] Conversion Iron Pellet Tester Cerner at 12/29/2022 4:45 PM CDT documented in this encounter Plan of Treatment Not on file documented as of this encounter Visit Diagnoses Not on filedocumented in this encounter
--- OUTSIDE RECORDS SUMMARY | 2025-04-13 09:57 | XMS_ITS | Encounter Summary ---
Author Organization [employer] ([place], [place], [place], [place]) Address [address] [place] [address] Care Team Providers Care Tester Sound Name Role Phone Unavailable Primary Care Provider Unavailabl e Encounter Details Date Type Department Care Team (Late st Contact Info) Description 12/26/2021 Transcribed Document [facility] [place] [facility] [place] [address] ProviderDario MD [address], [place] [phone] Social History Tobacco Use Types Packs/Day Years [...] Bryson Support Person/Pt Rep Contact Information : [phone] Want Family/Rep/Phys Notified of Admit : No Emergency Contact #1 : [place] Emergency Contact #1 Emergency Contact #1 Relationship : sister Emergency Contact #2 : . Emergency Contact #2 Phone Number : . Emergency Contact #2 Relationship : . Chief Complaint : pt from [facility], direct admit, pt has been having seizures the past 2 days, no hx, seizures have been lasting >10mins. here for neuro evaluation. Had seizure activity during triage lasting >2 min Information Obtained From : Patient, Other: caregiver Primary Language : Filipino Communication Barrier : None Spectrograph Operator Needed : No Brent Waller RN-Resource - [...] Level : 46 or > High Risk Benedict Fall Interventions : Adequate lighting, Assistive devices [...] Source : Stated Height Entry Format : [place] Height, Feet : 5 ft(Converted to: 152 cm, 60 Inch) Height, Inches : 10 Inch(Converted to: 0 ft 10 Inch, 25.40 cm) Clinical Height : 177.8 cm Weight Source : Bed scale Weight Entry Format : [place] Clinical Dosing Weight : 81.82 kg Weight, Pounds : 180 lb Body Surface Area (BSA) : 2 m2 Body Mass Index : 25.9 kg/m2 ([place]) [place] Body Weight : 72 kg Brent Waller [...] Brent Waller RN-Resource - 12/26/2021 1:08 EDT [place] Suicide Severity Rating Scale (C-SSRS) CSSRS Past [...]
--- OUTSIDE RECORDS SUMMARY | 2025-04-13 09:57 | XMS_ITS | Encounter Summary ---
Author Organization [employer] ([place], [place], [place], [place]) Address [address] [place] [address] Care Team Providers Care Knife Setter Assembler Name Role Phone Unavailable Primary Care Provider Unavailabl e Encounter Details Date Type Department Care Team (Late st Contact Info) Description 12/26/2021 Transcribed Document [facility] [place] Family Medicine [facility] [place] [address] ProviderDario MD [address] [place], [place] [phone] Social History Tobacco Use Types Packs/Day Years [...] On: 12/26/2021 12:07 EDT by CARMEN TRENT, Warehouse And Receiving Supervisor Primary Insurance Authorization Authorization and Policy Numbers : Insurance 1 Health Plan: [employer] MEDICARE Policy Number: [id number] Authorization Number: Insurance Primary Name : [employer]ED MEDICARE Policy Number: [id number] Authorization Status-Primary : Certified in total Reference Number-Primary : [id number] Authorization Number-Primary : [id number] Number of Days Authorized-Primary : 11 Day(s) Authorized Service Begin Date-Primary : 12/24/2021 EDT Authorized Service End Date-Primary : 01/04/2022 EDT Authorization Comments-Primary : cont stay approved per fax from [facility] 12/26/21 NRD 01/05/22 Historical Authorization Comments-Primary : Comment 1: c/s clinicals faxed via [facility], auth remains under review on [employer] portal (DIONNE SCHAFFER, RN-UTILIZATION MANAGEMENT REVIEW NON-EXEMPT 12/26/2021 09:20) Comment 2: Clinicals submitted on [employer] website for IP approval (JODY MUÑOZ RN 12/25/2021 08:50) CARMEN TRENT, Warehouse And Receiving Supervisor - 12/26/2021 12:07 EDT Electronically signed by Anthony [facility] Conversion Apprentice Technician Cerner at 12/29/2022 4:55 PM CDT documented in this encounter Plan of Treatment Not on file documented as of this encounter Visit Diagnoses Not on filedocumented in this encounter
--- OUTSIDE RECORDS SUMMARY | 2025-04-13 09:57 | XMS_ITS | Encounter Summary ---
Author Organization [employer] ([place], [place], [place], [place]) Address [address] [place] [address] Care Team Providers Care Rehab Assistant Name Role Phone Unavailable Primary Care Provider Unavailabl e Encounter Details Date Type Department Care Team (Late st Contact Info) Description 12/27/2021 Transcribed Document [facility] [place] [facility] [address] ProviderDario MD [address], [place] [phone] Social History Tobacco Use Types Packs/Day Years [...] EEG-video monitoring was performed using the 32-channel [employer] monitoring system. The seizure detection computer was [...] noted, suggestive of mild diffuse cerebral dysfunction. /[id number] MD TERRENCE Dong/AQ / TAF / MODL /[id number] documented in this encounter Plan of Treatment Not on file documented as of this encounter Visit Diagnoses Not on filedocumented in this encounter
--- OUTSIDE RECORDS SUMMARY | 2025-04-13 09:57 | XMS_ITS | Encounter Summary ---
Author Organization [employer] ([place], [place], [place], [place]) Address [address] [place] [address] Care Team Providers Care Holiday Detector Operator Name Role Phone Unavailable Primary Care Provider Unavailabl e Encounter Details Date Type Department Care Team (Late st Contact Info) Description 12/25/2021 Transcribed Document [facility] [place] Medicine [facility] [place] [address] ProviderDario MD [address] [place] [address] Social History Tobacco Use Types [...] On: 12/25/2021 9:36 EDT by LUKE ACKERMAN, DIRECTOR OF PATIENT SAFETY General Information Visit Type, DIRECTOR OF PATIENT SAFETY : Re-Evaluation Patient Orders : Speech Language Pathology Modified Barium Swallow Study -111 Start: 12/25/21 8:47:00 EDT, Routine, For Other (see special instructions), Dysphagia - INGRID [place]TH PA-BMABI Admission Date : Admission Date/Time: 12/24/21 13:29:00 Medical Chart Reviewed, DIRECTOR OF PATIENT SAFETY : Yes Personal Devices : Personal Devices No Devices Recorded Assistive Devices : Assistive Devices No Devices Recorded Active Diagnoses : 12/24/2021 12:00 Seizure 12/24/2021 12:00 Seizure - Recurrent Therapy Diagnosis, DIRECTOR OF PATIENT SAFETY : Normal oropharyngeal function. Recommendations: 1. Regular/thin 2. Medication per RN 3. NO further evaluation/tx for oropharyngeal dysphagia indicated Previous Speech/Language Evaluations : No previous ST in EMR Previous Swallow Precautions : No previous ST in EMR Previous Cognitive Evaluations : No previous ST in EMR Diet/Intake Prior to Current Admission : Puree/nectar Diet/Intake During Current Admission : puree/nectar Intubation Comment, DIRECTOR OF PATIENT SAFETY : n/a Vital Signs RTF : Vitals [...] 9:36 EDT General Status Patient Received Status, DIRECTOR OF PATIENT SAFETY : Up in chair Treatment Start Time, DIRECTOR OF PATIENT SAFETY : 12/25/2021 9:17 EDT Patient Left Status, DIRECTOR OF PATIENT SAFETY : Up in chair Treatment End Time, DIRECTOR OF PATIENT SAFETY : 12/25/2021 9:27 EDT Treatment Time, DIRECTOR OF PATIENT SAFETY : 10 Minute(s) LUKE ACKERMAN SLP - [...] Oral Mechanism for Daily Living : Intact DIRECTOR OF PATIENT SAFETY Cough : Strong Facial Appearance: : Symmetrical [...] 9:36 EDT Modified Barium Swallow Impairment Profile, DIRECTOR OF PATIENT SAFETY Modified Barium Swallow Impairment Profile Certified : [...] - 12/25/2021 9:36 EDT Therapy Indication Assessment DIRECTOR OF PATIENT SAFETY Indicated : No DIRECTOR OF PATIENT SAFETY Not Indicated : At prior level of function DIRECTOR OF PATIENT SAFETY Interdisciplinary Consultation Needs : No DIRECTOR OF PATIENT SAFETY Rehabilitation Potential : At prior level of function LUKE ACKERMAN SLP - 12/25/2021 9:36 EDT Swallow Plan/Goals Swallow LTG Grid DIRECTOR OF PATIENT SAFETY Supervisor [employer] Goal #1 DIRECTOR OF PATIENT SAFETY Supervisor [employer] Goal #2 Swallow LTG : Safely tolerates [...] LUKE ACKERMAN SLP - 12/25/2021 9:36 EDT DIRECTOR OF PATIENT SAFETY Education Assessment Grid 1 Diet Recommendation : Verbalizes understanding Evaluation Results : Verbalizes understanding LUKE ACKERMAN SLP - 12/25/2021 9:[address] [facility] Charg[facility] Modified Barium Swallow : 1 LUKE ACKERMAN SLP - 12/25/2021 9:36 EDT Anticipated Discharge Needs, DIRECTOR OF PATIENT SAFETY Anticipated Discharge to : Extended Care Facility Recommend Continued Therapy at Discharge : No LUKE ACKERMAN SLP - 12/25/2021 9:36 EDT documented in this encounter Plan of Treatment Not on file documented as of this encounter Visit Diagnoses Not on filedocumented in this encounter
--- OUTSIDE RECORDS SUMMARY | 2025-04-13 09:57 | XMS_ITS | Encounter Summary ---
Author Organization [employer] ([place], [place], [place], [place]) Address [address] [place] [address] Care Team Providers Care Order Processing Specialist Name Role Phone Unavailable Primary Care Provider Unavailabl e Encounter Details Date Type Department Care Team (Late st Contact Info) Description 12/26/2021 Transcribed Document [facility] [place] [facility] [place] [address] ProviderDario MD [address] [place] [address] Social History Tobacco Use Types [...] facility but noted has been getting worse. OVERNIGHT CASHIER consulted for h/o dysphagia, okay for regular/thin [...] Recommendations : 1. Continue 60 gm diet. internal combustion engine assembler to send Glucerna BID and Gianni BID. [...]
--- OUTSIDE RECORDS SUMMARY | 2025-04-13 09:57 | XMS_ITS | Encounter Summary ---
Author Organization [employer] ([place], [place], [place], [place]) Address [address] [place] [address] Care Team Providers Care Software Recruiter Name Role Phone Unavailable Primary Care Provider Unavailabl e Encounter Details Date Type Department Care Team (Late st Contact Info) Description 12/25/2021 Transcribed Document [facility] [place] [address] [place] [address] ProviderDario MD [address], [place] [id number] Social History Tobacco Use Types Packs/Day Years [...]
--- OUTSIDE RECORDS SUMMARY | 2025-04-13 09:57 | XMS_ITS | Encounter Summary ---
Author Organization [employer] ([place], [place], [place], [place]) Address [address] [place] [address] Care Team Providers Care Utilities Manager Name Role Phone Unavailable Primary Care Provider Unavailabl e Encounter Details Date Type Department Care Team (Late st Contact Info) Description 12/25/2021 Transcribed Document [facility] Radiology [address] [place] [address] Anali South MD [address] [facility] [address] [place] [address] Social History Tobacco Use Types [...] NO n/v/d. NO cp, soa. Worked with GAS REGULATOR REPAIRER and passed. Has regular food tray. HPI: 66 YO male who presented to [facility] from [facility] secondary recurrent seizure activity. He is known to our practice from [facility]. Pt has hx of seizures, DM II, HTN, HLD, functional quadraplegia. It appears that pt had increased seizure activity in 10/2021 when at [facility] (or may have led to him going there). Keppra was added to lamictal at that time, then was hospitalized again at [facility] and dilantin was added to regimen. Despite med changes pt has continued to have seizures. It appears dilantin was low and provider had plans to start titration at [facility]. Pt had seizure for 19 min at [facility] yesterday and was still having seizure when transported by EMS. O2 sat was starting to drop. Previously he had had a seizure over 10 min. Do to recurrent seizures he was transferred here to [facility] for further work up. No records from [facility] ER were seen on pts chart. Pt says he has felt feverish. No cp, soa. Has had occ cough. Concerned about sacral/buttock wound. States that previously at [facility] it was almost healed now it is bad again. C/o pain around right parotid gland. States it was found at [facility]. States they have been swabbing his mouth with lemon juice, that helped at first but now swollen. Pt has dentures but not with him. At [facility] he was started on azithromycin and prednisone for parotid swelling. Prior hospitalizations: 11/2721-12/18/21 - [facility] - pt was unrepsonsive at [facility] and went to ER. Dc summary said seizures and DKA?. He was intubated for protection. Extubated on 12/08. He had some intermittent seizures during his stay. Dilantin was added. Seizures were stopped with Ativan. Lamictal dose was increased. EEG showed no seizure activity per D/c summary and pt returned to [facility]. He was found to have parotid swelling during this time. D/c summary also has Acute resp failure, acute renal failure, hyperkalemia and hypernatremia. 10/2021-12/01/2021 - [facility] - hip and back pain after [...] also of 50 mg q8h. 08/2021 - [facility] -- Right foot gangrene, s/p [...] -12/25 - well controlled. A1c 6.4 Dysphagia -GAS REGULATOR REPAIRER eval -thickened liquids and pureed diet [...]
--- OUTSIDE RECORDS SUMMARY | 2025-04-13 09:57 | XMS_ITS | Clinical Summary ---
Author Organization [employer] ([place], [place], [place], [place]) Address [address] [place] [address] Care Team Providers Care Beam Carrier Hauler Pusher Name Role Phone Unavailable Primary Care Provider Unavailabl e Encounters Date Type Department Care Team Description 01/23/2025 Orders Only [facility] Reference [facility] - [facility] [address] [place] [address] Gustavo Leggett MD from Last [...] - 01/27/2025 4:07 PM EDT Performed at: [address] [place] [address] [id number] Metallurgical Lab Technician: Michael Roland PhD, Phone: [phone] Gustavo Leggett MD PATHOLOGY/CYTOLOGY ORDERABLE S Final Result Performing Organization Address [facility] de Phone Number [facility] * (ABNORMAL) [...] - 01/27/2025 4:07 PM EDT Performed at: [address] [place] [id number] Metallurgical Lab Technician: Michael Roland PhD, Phone: [phone] Gustavo Leggett MD PATHOLOGY/CYTOLOGY ORDERABLE S Final Result Performing Organization Address [facility] de Phone Number [facility] * (ABNORMAL) URINE CULTURE, ROUTINE (01/23/2025 4:40 PM EDT) Pathologist [facility] Urine Culture, Routine Final report(A) [facility] 01/23/2025 4:40 PM EDT 01/23/2025 Comment:UR Narrative [facility] - 01/27/2025 4:07 PM EDT Performed at: [address] [place] [address] [id number] Metallurgical Lab Technician: Michael Roland PhD, Phone: [phone] Gustavo Leggett MD MICROBIOLOGY - GENERAL ORDER SEB Final Result Performing Organization Address [facility] de Phone Number [facility] * (ABNORMAL) Urinalysis w/Microscopic (01/23/2025 4:40 PM EDT) Pathologist [facility] [place] Specific [place], UA 1.019 1.005 - 1.030 [facility] pH, [...] - 01/27/2025 4:07 PM EDT Performed at: [address] [place] [address] [id number] Metallurgical Lab Technician: Michael Roland PhD, Phone: [phone] Resulting Agency Comment [facility]:UR Gustavo Leggett MD URINE ORDERABLES Final Resul t Performing Organization Address [facility] Co de Phone Number [facility] from Last 3 Months
--- OUTSIDE RECORDS SUMMARY | 2025-04-13 09:57 | XMS_ITS | Encounter Summary ---
Author Organization [employer] ([place], [place], [place], [place]) Address [address] [place] [address] Care Team Providers Care Qc Analyst Name Role Phone Unavailable Primary Care Provider Unavailabl e Encounter Details Date Type Department Care Team (Late st Contact Info) Description 12/27/2021 Transcribed Document [facility] Radiology [address] [place] [address] Robert South MD [address] [facility] [address] [place] [address] Social History Tobacco Use Types [...] HPI: 66 YO male who presented to [facility] from [facility] secondary recurrent seizure activity. He [...] that time, then was hospitalized again at [facility] and dilantin was added to regimen. Despite med changes pt has continued to have seizures. It appears dilantin was low and provider had plans to start titration at [facility]. Pt had seizure for 19 min at [facility] yesterday and was still having seizure when transported by EMS. O2 sat was starting to drop. Previously he had had a seizure over 10 min. Do to recurrent seizures he was transferred here to [facility] for further work up. No records from [facility] ER were seen on pts chart. Pt says he has felt feverish. No cp, soa. Has had occ cough. Concerned about sacral/buttock wound. States that previously at [facility] it was almost healed now it is bad again. C/o pain around right parotid gland. States it was found at [facility]. States they have been swabbing his mouth with lemon juice, that helped at first but now swollen. Pt has dentures but not with him. [facility] was started on azithromycin and prednisone for parotid swelling. Prior hospitalizations: 11/2721-12/18/21 - [facility] - pt was unrepsonsive at [...] also of 50 mg q8h. 08/2021 - [facility] -- Right foot gangrene, s/p [...] EEG electrodes applied, pleasant cooperative bs cta [id number] abd soft, nt no leg swelling Data: [...] -12/25 - well controlled. A1c 6.4 Dysphagia -ORTHODONTIC TECHNICIAN eval -thickened liquids and pureed diet [...]
--- OUTSIDE RECORDS SUMMARY | 2025-04-13 09:57 | XMS_ITS | Encounter Summary ---
Author Organization [employer] ([place], [place], [place], [place]) Address [address] [place] [address] Care Team Providers Care Fresh Meat Grader Name Role Phone Unavailable Primary Care Provider Unavailabl e Encounter Details Date Type Department Care Team (Late st Contact Info) Description 12/26/2021 Transcribed Document [facility] [place] [facility] [place] [address] ProviderDario MD [address] [place] [place], [place] [id number] Social History Tobacco Use Types Packs/Day Years [...] Policy Numbers : Insurance 1 Health Plan: [employer] MANAGED MEDICARE Policy Number: [id number] Authorization Number: Insurance Primary Name : [employer] MANAGED MEDICARE Policy Number: [id number] Authorization Status-Primary : Awaiting callback Reference Number-Primary : [id number] Authorization Number-Primary : [id number] Authorized Service Begin Date-Primary : 12/24/2021 EDT Authorization Comments-Primary : c/s clinicals faxed via [employer], auth remains under review on [employer] portal Historical Authorization Comments-Primary : Comment 1: Clinicals submitted on [employer] website for IP approval (JODY MUÑOZ RN 12/25/2021 08:50) DIONNE SCHAFFER RN-UTILIZATION MANAGEMENT REVIEW NON-EXEMPT - 12/26/2021 9:20 EDT documented in this encounter Plan of Treatment Not on file documented as of this encounter Visit Diagnoses Not on filedocumented in this encounter
--- OUTSIDE RECORDS SUMMARY | 2025-04-13 09:57 | XMS_ITS | Encounter Summary ---
Author Organization [employer] ([place], [place], [place], [place]) Address [address] [place] [address] Care Team Providers Care Barrel Polisher Inside Name Role Phone Unavailable Primary Care Provider Unavailabl e Encounter Details Date Type Department Care Team (Late st Contact Info) Description 12/26/2021 Transcribed Document [facility] [place] [facility] [place] [address] ProviderDario MD [address], [place] [id number] Social History Tobacco Use Types Packs/Day Years [...] EEG-video monitoring was performed using the 32-channel [employer] monitoring system. The seizure detection computer was [...] noted, suggestive of mild diffuse cerebral dysfunction. /[id number] MD TERRENCE Dong/ALECIA / TAF / MODL /[id number] documented in this encounter Plan of Treatment Not on file documented as of this encounter Visit Diagnoses Not on filedocumented in this encounter
--- OUTSIDE RECORDS SUMMARY | 2025-04-13 09:57 | XMS_ITS | Encounter Summary ---
Author Organization [employer] ([place], [place], [place], [place]) Address [address] [place] [address] Care Team Providers Care Executive Coach Name Role Phone Unavailable Primary Care Provider Unavailabl e Encounter Details Date Type Department Care Team (Late st Contact Info) Description 12/25/2021 Transcribed Document [facility] [place] [facility] [place] [address] ProviderDario MD [address] [place], [place] [id number] Social History Tobacco Use Types Packs/Day Years [...] 67 mmHg Heart Rate Monitored 104 bpm [place] 12/25/2021 5:51 EDT Temperature, Fahrenheit 97.6 Deg [...]
--- OUTSIDE RECORDS SUMMARY | 2025-04-13 09:57 | XMS_ITS | Encounter Summary ---
Author Organization [employer] ([place], [place], [place], [place]) Address [address] [place] [address] Care Team Providers Care Millinery Blocker Name Role Phone Unavailable Primary Care Provider Unavailabl e Encounter Details Date Type Department Care Team (Late st Contact Info) Description 01/02/2022 Transcribed Document [facility] [place] Medicine [facility] [place] [address] ProviderDario MD [address] [place], [place] [phone] Social History Tobacco Use Types Packs/Day Years [...] On: 01/02/2022 10:53 EDT by Danica Hsu, Tire Trimmer Hand Primary Insurance Authorization Authorization and Policy Numbers : Insurance 1 Health Plan: [employer] MANAGED MEDICARE Policy Number: [id number] Authorization Number: Insurance Primary Name : [facility] MANAGED MEDICARE Policy Number: [id number] Authorization Status-Primary : Approved Auth/Referral Contact Name-Primary : [place] Reference Number-Primary : [id number] Authorization Number-Primary : [id number] Number of Days Authorized-Primary : 11 Day(s) Authorized Service Begin Date-Primary : 12/24/2021 EDT Authorized Service End Date-Primary : 01/04/2022 EDT Authorization Comments-Primary : Discharge summary faxed. Historical Authorization Comments-Primary : Comment 1: c/s clinicals faxed via [facility] 12/27-12/31 (DIONNE SCHAFFER, JESSEE-UTILIZATION MANAGEMENT REVIEW NON-EXEMPT 12/31/2021 13:58) Comment 2: cont stay approved per fax from [facility] 12/26/21 NRD 01/05/22 (CARMEN TRENT, Neon Sign Installer 12/26/2021 12:07) Comment 3: c/s clinicals faxed via [facility], auth remains under review on [facility] portal (DIONNE SCHAFFER RN-UTILIZATION MANAGEMENT REVIEW NON-EXEMPT 12/26/2021 09:20) Comment 4: Clinicals submitted on [facility] website for IP approval (JODY MUÑOZ RN 12/25/2021 08:50) Danica Hsu, Tire Trimmer Hand - 01/02/2022 10:53 EDT documented in this encounter Plan of Treatment Not on file documented as of this encounter Visit Diagnoses Not on filedocumented in this encounter
--- OUTSIDE RECORDS SUMMARY | 2025-04-13 09:57 | XMS_ITS | Encounter Summary ---
Author Organization [employer] ([place], [place], [place], [place]) Address [address] [place] [address] Care Team Providers Care Shearer Helper Name Role Phone Unavailable Primary Care Provider Unavailabl e Encounter Details Date Type Department Care Team (Late st Contact Info) Description 12/26/2021 Transcribed Document [facility] [place] [facility] [place] [facility] [place] [address] ProviderDario MD [address], [place] [id number] Social History Tobacco Use Types Packs/Day Years [...] new issues; no further seizures since EEG bucket hooker Objective VS/Measurements Vital Signs/Vital Measures 12/26/2021 5:30 [...] had two seizures here prior to EEG bucket hooker; no further events on EEG. He does [...]
--- OUTSIDE RECORDS SUMMARY | 2025-04-13 09:57 | XMS_ITS | Encounter Summary ---
Author Organization [employer] ([place], [place], [place], [place]) Address [address] [place] [address] Care Team Providers Care Contracting Manager Name Role Phone Unavailable Primary Care Provider Unavailabl e Encounter Details Date Type Department Care Team (Late st Contact Info) Description 12/26/2021 Transcribed Document [facility] [place] [facility] [place] [address] ProviderDario MD [address] [place], [place] [id number] Social History Tobacco Use Types Packs/Day Years [...] wounds have been being treated at his longterm care facility. Medihoney initiated as treatment regimen. [...]
--- OUTSIDE RECORDS SUMMARY | 2025-04-13 09:57 | XMS_ITS | Encounter Summary ---
Author Organization [employer] ([place], [place], [place], [place]) Address [address] [place] [address] Care Team Providers Care Pharmacy Technician Trainee Name Role Phone Unavailable Primary Care Provider Unavailabl e Encounter Details Date Type Department Care Team (Late st Contact Info) Description 12/26/2021 Transcribed Document [facility] [place] Medicine [facility] [place] [address] ProviderDario MD [address] [place], [place] [phone] Social History Tobacco Use Types Packs/Day Years [...] 13:29 Assisted by, PT : Physical Therapist, pharmacy technology instructor/aide Personal Devices : Personal Devices No Devices [...] THEO GARCIA, PT - 12/29/2021 16:47 EDT Senior Living Goals Mobility/Bed Mobility LTG PT Grid Goal [...] Anticipated Discharge to : Unit, rehabilitation, Unit, nursing home Recommend Continued Therapy at Discharge : Yes RICHARD VASQUEZ PT Student - 12/29/2021 16:37 EDT Cunningham PT Charges PT Therap. Exercise 15 min : 1 PT Ther Activities Ea 15 Min : 1 RICHARD VASQUEZ PT Student - 12/29/2021 16:37 EDT Electronically signed by Anthony, [facility] Conversion Cafe Assistant Cerner at 01/03/2023 2:01 PM CDT documented in this encounter Plan of Treatment Not on file documented as of this encounter Visit Diagnoses Not on filedocumented in this encounter
--- OUTSIDE RECORDS SUMMARY | 2025-04-13 09:57 | XMS_ITS | Encounter Summary ---
Author Organization [employer] ([place], [place], [place], [place]) Address [address] [place] [address] Care Team Providers Care Hospital Medical Assistant Name Role Phone Unavailable Primary Care Provider Unavailabl e Encounter Details Date Type Department Care Team (Late st Contact Info) Description 12/26/2021 Transcribed Document [facility] [place] [facility] [place] [address] ProviderDario MD [address] [place], [place] [id number] Social History Tobacco Use Types Packs/Day Years [...] JERSON MCGRAW OTR/Silva - 12/31/2021 12:27 EDT Pest Control Service Representative Goals, OT Grooming LTG Grid Goal #1 [...]
--- OUTSIDE RECORDS SUMMARY | 2025-04-13 09:57 | XMS_ITS | Encounter Summary ---
Author Organization [email or web address] ([place], [place], [place], [place]) Address [address] [place] [address] Care Team Providers Care International Sales Manager Name Role Phone Unavailable Primary Care Provider Unavailabl e Encounter Details Date Type Department Care Team (Late st Contact Info) Description 12/27/2021 Transcribed Document [facility] [place] Medicine [facility] [place] [address] ProviderDario MD [address] [place], [place] [phone] Social History Tobacco Use Types Packs/Day Years [...]
--- OUTSIDE RECORDS SUMMARY | 2025-04-13 09:57 | XMS_ITS | Encounter Summary ---
Author Organization [employer] ([place], [place], [place], [place]) Address [address] [place] [address] Care Team Providers Care Internal Recruiter Name Role Phone Unavailable Primary Care Provider Unavailabl e Encounter Details Date Type Department Care Team (Late st Contact Info) Description 12/25/2021 Transcribed Document [facility] [place] [facility] [place] [facility] [place] [address] ProviderDario MD [address] [place] [address] Social History Tobacco Use Types [...] Policy Numbers : Insurance 1 Health Plan: [employer] MEDICARE Policy Number: [id number] Authorization Number: Insurance Primary Name : [employer] MANAGED MEDICARE Policy Number: [id number] Authorization Status-Primary : Awaiting callback Reference Number-Primary : [id number] Authorized Service Begin Date-Primary : 12/24/2021 EDT Authorization Comments-Primary : Clinicals submitted on [employer] website for IP approval Historical Authorization Comments-Primary : No Authorization Comments Found JODY MUÑOZ RN - 12/25/2021 8:50 EDT documented in this encounter Plan of Treatment Not on file documented as of this encounter Visit Diagnoses Not on filedocumented in this encounter
--- OUTSIDE RECORDS SUMMARY | 2025-04-13 09:57 | XMS_ITS | Encounter Summary ---
Author Organization [employer] ([place], [place], [place], [place]) Address [address] [place] [address] Care Team Providers Care Director Talent Name Role Phone Unavailable Primary Care Provider Unavailabl e Encounter Details Date Type Department Care Team (Late st Contact Info) Description 12/26/2021 Transcribed Document [facility] [place] [facility] [place] [address] ProviderDario MD [address] [place], [place] [id number] Social History Tobacco Use Types Packs/Day Years [...] 12/26/2021 13:38 EDT by Vaishnavi Cunha V, Holistic Pulser Supervisor Orchard Initial Assessment I Previously Documented Living Environment : No qualifying data available. Living Situation : Senior Care unit/facility Patient Lives With : Alone Emergency [...] Listed? : Yes Medical Durable Power of Student Financial Services Counselor Name : Little watson Legal Guardian : No Is Guardianship Needed : No Vaishnavi Cunha Social Worker [facility] [place] - 12/26/2021 13:38 EDT Initial Assessment II Sensory and Motor Deficits : Quadriplegia Deficit Description : functional quadriplegia Current Home Treatments and Equipment : Hospital bed, Walker, Wheelchair, Other: lift Services and Community Resources : Home Health Services and Community Resources Addl Comments : [facility] Does the Patient have a Floor to SNF Benefit? : Yes Vaishnavi Cunha Social Worker [facility] [place] - 12/26/2021 13:38 EDT Discharge Needs I Anticipated Discharge Date : 12/27/2021 EDT Anticipated Discharge To, CM : senior care facility Current Home Treatment/Equipment : Current Home Treatment/Equipment No qualifying data available. Post Acute/Home Treatments : None Documentation Status Complete : Yes Vaishnavi Cunha Social Worker [facility] [place] - 12/26/2021 13:38 EDT Discharge Needs II Professional Skilled Services : Professional Skilled Services No qualifying data available. Needs Assistance with Transportation : Yes Discharge Options Discussed with Patient : Discharge transportation, DME, Home Health, Short term rehabilitation Patient Discharge Goal : senior care facility Vaishnavi Cunha Social Worker [facility] [place] - 12/26/2021 13:38 EDT Narrative Note Narrative Note : 66 YO male who presented to [facility] from [facility] secondary recurrent seizure activity. Presently, he's at [facility] for rehab Pt has hx of seizures, DM II, HTN, HLD, functional quadraplegia. Neurology, wound care, PT/OT and speech consulted. Patient on EEG monitoring for the next 24 hours. CM met with pt. Explained role. Patient is a functional quadraplegic who's presently at [facility] for rehab. Prior to rehab, he lived alone with his 2 dogs. He has a wheelchair, hospital bed, lift and walker. He's wheelchair bound and stated that he was able to perform all of his ADL prior to rehab. He's had [facility] for [facility]. His sister, Little (Zhane) [phone] is his POA. DCP-Transfer back to [facility] via w/c van or stretcher pending bed availability and insurance precert approval. Vaishnavi Cunha Social Worker [facility] [place] - 12/26/2021 13:38 EDT Electronically signed by Anthony, Olena Conversion Healthcare Market Consultant Cerner at 12/29/2022 4:34 PM CDT documented in this encounter Plan of Treatment Not on file documented as of this encounter Visit Diagnoses Not on filedocumented in this encounter
--- OUTSIDE RECORDS SUMMARY | 2025-04-13 09:57 | XMS_ITS | Encounter Summary ---
Author Organization [employer] ([place], [place], [place], [place]) Address [address] [place] [address] Care Team Providers Care Bellows Assembler Name Role Phone Unavailable Primary Care Provider Unavailabl e Encounter Details Date Type Department Care Team (Late st Contact Info) Description 12/26/2021 Transcribed Document [facility] Radiology [address] [place] [address] Anali South MD [address] [facility] [address] [place] [address] Social History Tobacco Use Types [...] HPI: 66 YO male who presented to [facility] from [facility] secondary recurrent seizure activity. He is known to our practice from [facility]. Pt has hx of seizures, DM II, HTN, HLD, functional quadraplegia. It appears that pt had increased seizure activity in 10/2021 when at [facility] (or may have led to him going [...] recurrent seizures he was transferred here to [facility] for further work up. [...] dentures but not with him. At [facility] he was started on azithromycin and prednisone for parotid swelling. Prior hospitalizations: 11/2721-12/18/21 - [facility] - pt was unrepsonsive at [facility] [...] renal failure, hyperkalemia and hypernatremia. 10/2021-12/01/2021 - [facility] - hip and back pain after falling [...] also of 50 mg q8h. 08/2021 - [facility] -- Right foot gangrene, s/p right [...] -12/25 - well controlled. A1c 6.4 Dysphagia -DEHYDRATOR OPERATOR eval -thickened liquids and pureed diet [...]
[2025-04-13 10:37] LABS: Hematocrit 34.5 % (42.0-52.0); Hemoglobin 10.3 g/dL (14.1-18.0); Immature Granulocytes % 0.3 %; Mean Corpuscular HGB Conc 29.9 g/dL (31.8-35.4); Mean Corpuscular Hemoglobin 23.2 pg (27.0-31.2); Mean Corpuscular Volume 77.7 fl (80-94); Nucleated Red Blood Cells % 0 %; Platelet Count 285 K/mm3 (142-424); Red Blood Count 4.44 M/mm3 (4.60-6.20); Red Cell Distribution Width-SD 45.7 fL; White Blood Count 9.0 K/mm3 (4.8-10.8)
[2025-04-13 10:59] LABS: Alanine Aminotransferase 17 U/L (12-78); Albumin Level 3.3 g/dl (3.5-5.0); Albumin/Globulin Ratio 1.0 (1.1-1.8); Alkaline Phosphatase 166 U/L (38-126); Anion Gap 9.7 mEq/L (5-15); Aspartate Amino Transferase 22 U/L (17-59); Blood Urea Nitrogen 21 mg/dl (9-20); Calcium 9.2 mg/dl (8.4-10.2); Carbon Dioxide 25 mmol/L (22.0-30.0); Chloride 107 mmol/L (98-107); Creatinine,Serum 0.80 mg/dl (0.66-1.25); Estimated Glomerular Filt Rate 95 ml/min (>60); GFR (African American) 115 ML/MIN (>60); Globulin 3.2 g/dL (1.3-3.2); Glucose 190 mg/dl (74-100); Potassium 4.7 mmoL/L (3.5-5.1); Sodium 137 mmol/L (136-145); Total Protein,Serum 6.5 g/dl (6.3-8.2)
[2025-04-13 11:00] LABS: Bilirubin,Total < 0.1 mg/dl (0.2-1.3)
--- OUTSIDE RECORDS SUMMARY | 2025-05-21 20:00 | XMS_ITS | Clinical Summary ---
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 Active 09-25 00:00: [...] 09-25 00:00: 00 ATHSCL HEART DISEASE OF [place] CORONARY ARTERY W/O ANG PCTRS Active 09-25 [...] OF URINARY DEVICE Active 09-25 00:00: 00 ASSISTED (CURRENT) USE OF ASPIRIN Active 09-25 00:00: 00 ASSISTED (CURRENT) USE OF 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 ICS/ANTIPLAT ELETS Active [...] mg chewable tablet 09-25 00:00: 00 Yes [id number] HEART DISEASE 1 tablet DAILY 1 tablet DAILY (route: oral) Med Classific ation: Hematolog ical Agents baclofen 10 mg tablet 09-25 00:00: 00 Yes [id number] MUSCLE SPASMS 1 tablet 2 TIMES DAILY 1 tablet 2 TIMES DAILY (route: oral) Med Classific ation: Locomotor System Basaglar KwikPen U-100 Insulin 100 unit/mL (3 mL) subcutaneou s 09-25 00:00: 00 Yes [id number] DIABETIC 42 unit BEDTIME 42 unit BEDTIME (route: subcutaneo ) Med Classific ation: Endocrine Cherelle Back and Body 500 mg-32.5 mg tablet 09-25 00:00: 00 Yes [id number] PAIN 1 tablet NEEDED 1 tablet NEEDED (route: oral) Med Classific ation: Analgesic , Anti-infl ammatory or Antipyret ic carvedilol 3.125 mg tablet 09-25 00:00: 00 Yes [id number] HEART RATE 1 tablet 2 TIMES DAILY 1 tablet 2 TIMES DAILY (route: oral) Med Classific ation: Cardiovas cular Therapy Agents clopidogrel 75 mg tablet 09-25 00:00: 00 Yes [id number] BLOOD THINNER 1 tablet DAILY 1 tablet DAILY (route: oral) Med Classific ation: Hematolog ical Agents folic acid 1 mg tablet 09-25 00:00: 00 Yes [id number] SUPPLEMENT 1 tablet DAILY 1 tablet DAILY (route: oral) Med Classific ation: Electroly te Balance-N utritiona l Products furosemide 40 mg tablet 09-25 00:00: 00 Yes [id number] FLUID 1 tablet DAILY 1 tablet DAILY (route: oral) Med Classific ation: Cardiovas cular Therapy Agents gabapentin 100 mg capsule 09-25 00:00: 00 Yes [id number] NERVE PAIN 2 capsule 3 TIMES DAILY 2 capsule 3 TIMES DAILY (route: oral) Med Classific ation: Central Nervous System Agents lamotrigine 100 mg tablet 09-25 00:00: 00 Yes [id number] SEIZURES 1 tablet 2 TIMES DAILY 1 tablet 2 TIMES DAILY (route: oral) Med Classific ation: Central Nervous System Agents lamotrigine 150 mg tablet 09-25 00:00: 00 Yes [id number] SEIZURES 1 tablet BEDTIME 1 tablet BEDTIME (route: oral) Med Classific ation: Central Nervous System Agents levofloxaci n 750 mg tablet 09-25 00:00: 00 11-10 23:59 :00 No [id number] INFECTION 1 tablet DAILY 1 tablet DAILY (route: oral) Med Classific ation: Anti-Infe ctive Agents multivitami n tablet 09-25 00:00: 00 Yes [id number] SUPPLEMENT 1 tablet DAILY 1 tablet DAILY (route: oral) Med Classific ation: Electroly te Balance-N utritiona l Products ondansetron 4 mg disintegrat ing tablet 09-25 00:00: 00 Yes [id number] NAUSEA 1 tablet NEEDED 1 tablet NEEDED (route: oral) Med Classific ation: Gastroint estinal Therapy Agents Pacerone 400 mg tablet 09-25 00:00: 00 Yes [id number] HEART RATE 1 tablet 2 TIMES DAILY 1 tablet 2 TIMES DAILY (route: oral) Med Classific ation: Cardiovas cular Therapy Agents pantoprazol e 40 mg tablet,jossie yed release 09-25 00:00: 00 Yes [id number] ACID REFLUX 1 tablet DAILY 1 tablet DAILY (route: oral) Med Classific ation: Gastroint estinal Therapy Agents amoxicillin 875 mg-potassiu m clavulanate 125 mg tablet 01-31 00:00: 00 02-07 23:59 :00 No [id number] UTI 1 tablet EVERY AM 1 tablet EVERY AM (route: oral) Med Classific ation: Anti-Infe ctive Agents levofloxaci n 500 mg tablet 02-24 00:00: 00 03-10 23:59 :00 No [id number] DYSURIA 1 tablet DAILY 1 tablet DAILY (route: oral) Med Classific ation: Anti-Infe ctive Agents doxycycline hyclate 100 mg tablet 03-24 00:00: 00 03-31 23:59 :00 No [id number] DYSURIA 1 tablet 2 TIMES DAILY 1 tablet 2 TIMES DAILY (route: oral) Med Classific ation: Anti-Infe ctive Agents ertapenem 1 gram solution for injection 03-31 00:00: 00 04-03 23:59 :00 No [id number] UTI 1 g DAILY 1 g DAILY (route: injection) Med Classific ation: Anti-Infe ctive Agents lidocaine (PF) 10 mg/mL (1 %) injection solution 03-31 00:00: 00 04-03 23:59 :00 No [id number] DILUTING FOR ANTIBIOTIC Per instruc tions DAILY Per instructio ns DAILY (route: injection) Med Classific ation: Anestheti cs Vital Signs Vital Name Observation Time Observation Value Commen ts Temperature 2025-04-12 10:03:00.000 98.3 [degF] Temperature 2025-04-10 12:13:00.000 97.9 [degF] Temperature 2025-04-09 12:45:00.000 97.7 [degF] Temperature 2025-04-05 07:30:00.000 97.9 [degF] Temperature 2025-04-03 12:34:00.000 98.6 [degF] Temperature 2025-04-02 12:52:00.000 98 [degF] Temperature 2025-03-29 12:54:00.000 98.2 [degF] Temperature 2025-03-26 12:34:00.000 98.1 [degF] Pulse 2025-04-12 10:03:00.000 58 /min Pulse 2025-04-10 12:13:00.000 76 /min Pulse 2025-04-09 12:45:00.000 78 /min Pulse 2025-04-05 07:30:00.000 79 /min Pulse 2025-04-03 12:34:00.000 76 /min Pulse 2025-04-02 12:52:00.000 70 /min Pulse 2025-03-29 12:54:00.000 71 /min Pulse 2025-03-26 12:34:00.000 79 /min O2 Saturation (%) 2025-04-12 10:03:00.000 99 % O2 Saturation (%) 2025-04-10 12:13:00.000 94 % O2 Saturation (%) 2025-04-05 07:30:00.000 99 % O2 Saturation (%) 2025-04-03 12:34:00.000 96 % O2 Saturation (%) 2025-04-02 12:52:00.000 98 % O2 Saturation (%) 2025-03-29 12:54:00.000 98 % O2 Saturation (%) 2025-03-26 12:34:00.000 99 % Respirations 2025-04-12 10:03:00.000 16 /min Respirations 2025-04-10 12:13:00.000 18 /min Respirations 2025-04-09 12:45:00.000 16 /min Respirations 2025-04-05 07:30:00.000 16 /min Respirations 2025-04-03 12:34:00.000 18 /min Respirations 2025-04-02 12:52:00.000 16 /min Respirations 2025-03-29 12:54:00.000 16 /min Respirations 2025-03-26 12:34:00.000 16 /min Systolic Blood Pressure 2025-04-12 10:03:00.000 147 mm [...] 12:34:00.000 136 mm [Hg] Diastolic Blood Pressure 2025-04-12 10:03:00.000 [...] 2025-03-26 12:34:00.000 83 mm [Hg] Plan of Care Planned Activity [...] UNNA BOOT ONCE WEEKLY FOR EDEMA MANAGEMENT/WEEPING. ] Future Scheduled Test SKILLED NU RSE TO [...] MAINTENANCE PROGRAM OR PERFORM MAINTENANCE THERAPY INTERVENTIONS.] Progress Notes * <paragraph>[Visit Date: 2025-04-12 by KASHIF EPREZ RN]:</paragraph><paragraph>ROUTINE NURSING VISIT FOR ASSESSMENT, CHANGE INDWELLING URINARY CATHETER, WOUND CARE TO THE LEFT FOOTSURGICAL WOUND PATIENT SITTING ON THE EDGE OF THE HOSPITAL BED AT TIME OF NURSES ARRIVAL, HAS MOTORIZED WHEELCHAIR WITHIN REACH. ALERT AND ORIENTED TIMES FOUR, PATIENT STATES THAT HE JUST HAS NOT BEEN FEELING WELL, STATES THAT HE HAS BEEN MORE SLEEPY THAN NORMAL, HAVING NAUSEA WITHOUT VOMITING OR DIARRHEA, OVERALL FEELINGS OF FATIGUE AND NOT FEELING WELL. PATIENT STATES HE'S NOT ABLE TO SET UP MORE THAN 30 MINUTES IN HIS MOTORIZED WHEELCHAIR WITHOUT BECOMING LIGHT-HEADED. COMPLAINTS OF CHRONIC LEFT LOWER EXTREMITY BURNING AND DISCOMFORT. REVIEWED MEDICATION PROFILE, NO CHANGES NOTED AT THIS TIME, DENIES FALLS AND NO EMERGENCY ROOM VISITS REPORTED SINCE THE LAST NURSING ASSESSMENT. CHECKS GLUCOSE VIA DEXCOM, DUE TO BE CHANGED AT TODAY'S ASSESSMENT. NURSE REPLACED THE GLUCOSE METER AND PAIRED. BEFORE CHANGING THE SENSOR THE READING WAS 151 AT TODAY'S ASSESSMENT FASTING. HEART RATE SLIGHTLY LOWER AT TODAY'S ASSESSMENT, BRADYCARDIA NOTED. ALL OTHER VITAL SIGNS STABLE. HEART REGULAR RHYTHMAND LUNGS CLEAR. NO EDEMA DUE TO COMPRESSION FROM UNABOOT DRESSING. DENIES ISSUES WITH CHEST PAIN, NO CHEST PRESSURE AND NO SHORTNESS OF AIR. INDWELLING CATHETER CHANGE DUE AT TODAY'S ASSESSMENT, UTILIZING STERILE TECHNIQUE CHANGE 12 KITTITIAN 10CC INDWELLING CATHETER. PATIENT TOLERATED WELL AND RETURNED 250 ML OF CLEAR YELLOW URINE. PATIENT WAS ABLE TO LAY BACK IN THE BED FOR WOUND CARE TO THE LEFTFOOT SURGICAL WOUND. DRESSING REMOVED AND CLEANSED WOUND ORDERED. NO SIGNIFICANT CHANGES AND WOUND STATUS. NO ODORS. WOUND CARE PROVIDED ORDERED AND PATIENT TOLERATED WELL WITHOUT COMPLAINTS. NARCISSIST BUTTOCKS AND NOTED THAT PATIENT HAS INCREASED REDNESS TO THREE SEPARATE AREAS, EDUCATION PROVIDED ON THE IMPORTANCE OF FREQUENT OFFLOADING OF PRESSURE AND CONTINUING TO USE DESITIN CREAM ANDDESINEX POWDERS TWICE DAILY. EDUCATION PROVIDED ON THE IMPORTANCE OF A WELL-BALANCED AND NUTRITIOUSDIET WITH ADEQUATE HYDRATION, PATIENT'S DIET HAS TYPICALLY BEEN CONSISTENT OF CHEESE AND CRACKERS, TURKEY AND CHEESE ROLLED UP TOGETHER, PICKLES, AND EASY TO PUT TOGETHER FOODS. PATIENT HAS A SISTER AND NEIGHBORS THAT OFFER HIM HOME COOKED MEALS FREQUENTLY. PATIENT VERBALIZED UNDERSTANDING OF EDUCATION AND RECOMMENDATIONS PROVIDED. NOTIFIED DR RAMESH SPOKE WITH CHARLES, REPORTED PATIENT CONCERNS FROM TODAY'S ASSESSMENT AND ALSO BRADYCARDIA. AWAITING A RETURN CALL IF ADDITIONAL ORDERS ARE NEEDED.INSTRUCTED PATIENT TO NOTIFY [facility] FOR ANY QUESTIONS OR CONCERNS AND TO SEEK EMERGENCY MEDICAL TREATMENT FOR EMERGENCY SITUATIONS. PATIENT STATES UNDERSTANDING</paragraph> * <paragraph>[Visit Date: 2025-04-11 by LE BECERRA PT]:</paragraph><paragraph>INBED UPON ARRIVAL, AGREEABLE TO SESSION. MODERATE PAIN IN LLE, NO FALLS. HIS URINE HAS IMPROVED BUT STILL HAVING NAUSEA, FATIGUE, DIZZINESS, LOW APPETITE. PERFORMED THER EX EOB. REMOVED UNNA BOOT DUE COMPAINTS OF SIGNIFICANT PAIN AND BURNING. IT WAS ALSO COMING LOOSE. PATIENT TRANSFERS WITH [facility]- SBAFROM BED TO/FROM POWER CHAIR AND UTILIZES POWER CHAIR WITH VERBAL CUES FOR SAFETY AND OBSTACLE MANAGEMENT. RECOMMEND CONTINUE MAINTENANCE THERAPY TO PREVENT DECLINE IN FUNCTION. PATIENT IS HOMEBOUND D/T DEPENDENCE ON SPECIALTY TRANSPORTATION FOR SAFE ENTRY AND EXIT OF THE HOME. NO UPCOMING APPT</paragraph> * <paragraph>[Visit Date: 2025-04-10 by YUMI BALDERAS OT]:</paragraph><paragraph>PATIENT AGREEABLE TO OT VISIT. PATIENT PROGRESSING WITH GOALS. PATIENT REPORTED HE FEELS LIKE HIS UTI MAY BE COMING BACK. PATIENT EDUCATION ON HEP, SAFETY, ADLS, AND EC/WS TECHNIQUES. TAXING EFFORT AND AND ASSISTANCE TO LEAVE HOME.</paragraph> * <paragraph>[Visit Date: 2025-04-09 by PEE TAYLOR RN]:</paragraph><paragraph>HOME VISIT MADE FOR ASSESSMENT AND WOUND CARE. PATIENT SITTING UP IN WHEELCHAIR WHEN I ARRIVED. ALERT AND ORIENTED. STATES HE HAS NOT BEEN FEELING WELL. JUST FINISHED ANTIBIOTICS FOR UTI. LOAIZA CATHETER P ATENT AND URINE LIGHT YELLOW. PATIENT REPORTS HE HAS BEEN DRINKING A LOT OF WATER AND TEA. WOUND CARE PERFORMED ORDER . WOUND HAS FOUL ODOR BUT IS CLEAN AND PALE PINK. LEG SWOLLEN AND WEEPING.. USED UNNA BOOT WRAP. VITAL SIGNS WITHIN NORMAL RANGE. LUNGS CLEAR. REPORTS FAIR APPETITE. INSTURCTED ON CALLING [facility] FOR CONCERNS.</paragraph> Encounters Start Date/Time End Date/Time Encounter Type Admission Type Attending [facility] Facility Care Department Encounter ID 2025-03-24 00:00:00 2025-05-22 00:00:00 Unknown CARTIFICYUMI CRAFT, LE BABB [facility] [id number]
== END 2025-04-13 23:59 | disposition home or self-care (01) ==
LOC: LAB 09:53
PROVIDERS: PCP Internal Medicine Adolescent Medicine; Visit Provider Internal Medicine Adolescent Medicine
DX: I50.9 Heart failure, unspecified (principal); D64.9 Anemia, unspecified
CPT/HCPCS: 80053; 85025

== ENCOUNTER 2025-05-07 12:58 | Emergency (ER) | payer MEDICARE, SELFPAY ==
--- OUTSIDE RECORDS SUMMARY | 2023-01-18 05:30 | XMS_ITS | Continuity of Care Document ---
Author Organization [address] [place] [address] Address [address] [facility] [address] [place] [address] Phone Care Team Providers Care Wax Molder Name Role Phone Ruben Avila DPM Unavailable Unavailable Allergies, Adverse Reactions, Alerts Substance Reaction Status Criticality BUPROPION HCL Active No Information KETOROLAC TROMETHAMINE Active No In formation hydrocodone Active No Information codeine Active No Information Medications Medication Instructions Dosage Effective Dates (start - stop) Status Comments undefined TABLET 5mg tab PO BID - ANxiety/Depression - Active atorvastatin 40 mg tablet - Active glipizide 5 mg tablet - Acti ve furosemide 40 mg tablet - Ac tive metformin 500 mg tablet - Ac tive lamotrigine 25 mg tablet - A ctive Gvoke HypoPen 1-Pack 1 mg/0.2 mL subcutaneous auto-injector - Active lamotrigine 150 mg tablet - Active buspirone 5 mg tablet - Acti ve lamotrigine 100 mg tablet - Active finasteride 5 mg tablet - Ac tive lamotrigine 200 mg tablet - Active diazepam 12.5 mg-15 mg-17.5 mg-20 mg rectal kit - Active gabapentin 400 mg capsule - Active levetiracetam 750 mg tablet - Active potassium chloride ER 10 mEq tablet,extended release - Active hydrocortisone 5 mg tablet - Active baclofen 10 mg tablet - Acti ve quetiapine 50 mg tablet - Ac tive triamcinolone acetonide 0.5 % topical cream - Active Santyl 250 unit/gram topical ointment - Active amoxicillin 875 mg-potassium clavulanate 125 mg tablet - Active amoxicillin 875 mg tablet - Active doxycycline hyclate 100 mg tablet - Active diazepam 2 mg tablet - Activ e benazepril 40 mg tablet - Ac tive levetiracetam 500 mg tablet - Active metformin 1,000 mg tablet - Active metoprolol succinate ER 25 mg tablet,extended release 24 hr - Active potassium chloride ER 20 mEq tablet,extended release(part/cryst) - Active lamotrigine ER 50 mg tablet,extended release 24 hr - Active hydrocortisone 10 mg tablet - Active Ubrelvy 50 mg tablet - Activ e oxycodone-acetaminophen 5 mg-325 mg tablet - Active baclofen 20 mg tablet - Acti ve midodrine 5 mg tablet - Acti ve triamcinolone acetonide 0.1 % topical cream - Active amlodipine 10 mg tablet - Ac tive clotrimazole-betamethason e 1 %-0.05 % topical cream - Active quetiapine 25 mg tablet - Ac tive Eliquis 2.5 mg tablet - Acti ve linezolid 600 mg tablet - Ac tive pantoprazole 40 mg tablet,delayed release - Active diazepam 5 mg-7.5 mg-10 mg rectal kit - Active phenytoin 125 mg/5 mL oral suspension - Active sulfamethoxazole 800 mg-trimethoprim 160 mg tablet - Active Procedures Procedure Date NURSING FAC CARE SUBSEQ Diabetic Foot Exam Performed PSYCH DIAGNOSTIC EVALUATION SBSQ NF CARE MODERATE MDM 30 HEARING SERVICE, MISCELLANEOUS 23 1ST NF CARE SF/LOW MDM 25 Compsve Oral Eval- New/Est Pat 23 DEBRIDE NAIL 1-5 NURSING FAC CARE SUBSEQ Diabetic Foot Exam Performed EYE EXAM NEW PATIENT Advance Directives Directive Yes / No Effective Date File Name No Information Encounters Encounter Description Practice Location Reason(s) For Visit Diagnoses Date Provider Providers Copied on Encounter NURSING FAC CARE SUBSEQ [address] [place] [address], [address] [place] [address] [address], [place], [id number], tel:[phone] [facility] Acquired absence of right leg above kneeTinea unguiumType 2 diabetes mellitus with diabetic peripheral angiopathy without gangrene [address] [address] [facility], [address], [place], [address], . Referring Provider: Gustavo Leggett. PSYCH DIAGNOSTIC EVALUATION [address] [place] [address], [address] [place] [address], [place], [place], [id number], tel:[phone] [facility] Adjustment disorder with depressed mood 3 [place]. [facility] 30 [facility], [address] [place] [address], [place], [place], [id number], [place] tel:[phone] [facility] Depressed mood withincrease d sadness, Less motivation, (chief complaint) Major depressive disorder, single episode, moderateGene ralized anxiety disorder 3 Wade Russell. [place]. [address] [place] [address], [address] [place] [address], [place], [place], [id number], [place] tel:[phone] [facility] Impacted cerumen, right ear 3 Rachid Kearnsisten. [place]. Referring Provider: Gustavo Leggett. 1ST CARE SF/LOW MDM [address] [place] [address], [address] [place] [address], [place], [place], [id number], tel:[phone] [facility] Initial assessment for Anxiety, Depression, occasional (chief complaint) Major depressive disorder, single episode, moderateGene ralized anxiety disorder 3 [place], [place]. [address] [place] [address], [address] [place] [address], [place], [place], [id number], [place] tel:[phone] [facility] Encounter for dental examination and cleaning without abnormal findings 3 [place], [place], [place]. tel:[phone] Referring Provider: Gustavo Leggett. NURSING FAC CARE SUBSEQ [address] [place] [address], [address] [place] [address], [place], [place], [id number], [place] tel:[phone] [facility] Tinea unguiumType 2 diabetes mellitus with diabetic peripheral angiopathy without gangreneAbra joseph, left lesser toe(s), initial encounterAcq uired absence of right leg above knee [address] [address] [facility], [address], [place], [address], [place]. Referring Provider: Gustavo Leggtet. [address] [place] [address], [address] [place], [place] [address], [place], [place], [id number], [place] tel:[phone] [facility] Diabetic eye exam (chief complaint) Type 2 diabetes mellitus without complication sVitreous degeneration , bilateralAge -related nuclear cataract, bilateralDry eye syndrome of bilateral lacrimal glands 2 Zaira Escobar. [address], [place], [address], [place]. Referring Provider: Gustavo Leggett. [address] [place] [address], [address] [place] [address], [place], [place], [id number], [place] tel:[phone] [facility] No Information [address] [address] [facility], [address], [place], [address], . Family History Family Member Type Diagnosis Age At Onset No Information Payers Payer name Insurance type Covered constitution party ID Sushila hussein(s) [employer] Medicare CI [id number] Medicaid [place] [id number] Social History Type Description Quantity Date Captured Comments Alcohol Use Details Unknown Caffeine Use Details Unknown Tobacco Use Status No Information Smoking Status No Information Sex Male Chief Complaint And Reason For Visit No Information Reason For Referral Reason For Referral No Information Plan Of Treatment Date Type Action Status Patient Education Learning About Dental Care and Your Health Problem completed History Of Present Illness Encounter Date Complaint History Of Prese nt Illness Diabetic eye exam The 67 year ol d male presents for evaluation of Diabetic eye exam in the right eye and left eye. It occurs all the time. The onset was gradual. It affects both near and far vision. Functional Status Date Functional Assessmen t No Information Instructions Date Instruction Additional Infor mation No need for toenail debridement at this time. A full exam was performed. Follow up in 2 months. Related to Tinea unguium Refer for cerumen re moval in the right ear. Related to Impacted cerumen, right ear Discussed with the conor martinez. Continue betadine to abrasions on 4th and 5th toes daily. Monitor for infection. Dry dressing if needed. Related to Abrasion, left lesser toe(s), initial encounter Toenails 1-5 left we re debrided in length and thickness without incident. Follow up in 2-3 months. Related to Tinea unguium We will schedule a f ollow up appointment in 6-9 months for a dilated fundus exam. Related to Dry eye syndrome of bilateral lacrimal glands Impression/Plan - y eye syndrome is significant; treat with artificial tears solution; 1 drop both eyes twice per day. Related to Dry eye syndrome of bilateral lacrimal glands Follow up - We will schedule a follow up appointment in 6-9 months for a dilated fundus exam. Related to Dry eye syndrome of bilateral lacrimal glands Impression/Plan - Ca taracts are moderate and are affecting visual acuity; however, no treatment recommended at this time. We will monitor for progression. Related to Age-related nuclear cataract, bilateral Impression/Plan - Vi treous floaters are present; however, no holes, breaks, or tears are evident. Related to Vitreous degeneration, bilateral Impression/Plan - No active diabetic retinopathy present in either eye. We will monitor at regular intervals. Related to Type 2 diabetes mellitus without complications Assessments Type Assessment Date assessment Acquired absence of right leg ab ove knee assessment Tinea unguium assessment Type 2 diabetes flor itus with diabetic peripheral angiopathy without gangrene Patient Care Teams Name Effective Dates (start - stop) Status Members No Information
[2025-05-07] VITALS (15 sets, daily range): BP systolic 113–162; BP diastolic 56–81; PULSE 67–89; RESP 16–19; TEMP 36.6–36.9; O2SAT 96–100; BMI 35.2
--- OUTSIDE RECORDS SUMMARY | 2025-05-07 13:06 | XMS_ITS ---
Author Organization [place] Care Team Providers Care Electrical Solderer Name Role Phone Cinthia Robertson Unavailable UnavailYUMIKO Gimenez Unavailable Unavailable Allergies and adverse reactions Code CodeSystem Substance Reaction Severity StartDate Concern Status Wellbutrin Unknown 03/06/2022 active Toradol Unknown 03/06/2022 active 5489 RXNORM HYDROcodone Unknown 03/06/2022 active 2670 RXNORM Codeine Unknown 03/06/2022 active Care Team Name Role Address Phone Organization Dates YUMIKO MEHTA PCP [address] [place] [facility] [address], [facility], [facility] (Office): : [place] 03/06/2022 - 01/25/2023 Cinthia Robertson [address] [place] [facility] [address], [place] (Office): : [place] 03/06/2022 - 01/25/2023 Goals Section Goals Description [...] completed Pneumococcal conjugate vaccine 15-valent (PCV15), polysaccharide GUQ610 conjugate, adjuvant, preservative free 215 CVX created [...] 1 ACUTE RESPIRATORY FAILURE WITH HYPOXIA [address] active 2 ANEMIA, UNSPECIFIED [address] active 3 BENIGN NEOPLASM OF MENINGES, UNSPECIFIED [address] active 4 DYSPHAGIA, UNSPECIFIED [address] active 5 ENCEPHALOPATHY, UNSPECIFIED [address] active 6 MAJOR DEPRESSIVE DISORDER, SINGLE EPISODE, MILD [address] active 7 POLYNEUROPATHY, UNSPECIFIED [address] active 8 PRIMARY ADRENOCORTICAL INSUFFICIENCY [address] active 9 REPEATED FALLS [address] active 10 SUICIDAL IDEATIONS [address] active 11 PRESSURE ULCER OF SACRAL REGION, UNSTAGEABLE [address] active 12 EPILEPSY, UNSPECIFIED, NOT INTRACTABLE, WITH STATUS EPILEPTICUS [address] active 13 ACQUIRED ABSENCE OF RIGHT LEG ABOVE KNEE [address] active 14 ACUTE PYELONEPHRITIS [address] active 15 ESSENTIAL (PRIMARY) HYPERTENSION [address] active 16 HYPERLIPIDEMIA, UNSPECIFIED [address] active 17 PARAPLEGIA, UNSPECIFIED [address] active 18 PRESSURE ULCER OF OTHER SITE, STAGE 2 2 10/20/[address] completed 19 SEPSIS, UNSPECIFIED ORGANISM [address] active 20 SPINAL STENOSIS, THORACIC REGION [address] active 21 TYPE 2 DIABETES MELLITUS WITH DIABETIC NEPHROPATHY [address] active Reason for Referral No Reasons for Referral Entered Social History Social History Observation Description Start Date End Date Code Code System Current Smoking Status Tobacco smoking consumption unknown 998388885 SNOMED CT Sex Assigned At Male 1955 08367-2 [facility] Gender Identity Vital Signs Code Code System Vitals Name Values and Units Timing Information 8462-4 LOINC Blood Pressure-Diastolic Value=92 Un its=mmHg 01/25/2023 8480-6 LOINC Blood Pressure-Systolic Ywhrn=063 Un its=mmHg 01/25/2023 8867-4 [facility] Heart rate Value=99.0 Units=/min 16150-0 [facility] Pain Level Value=0.0 01/25/2023 8310-5 LOINC Body Temperature Value=97.5 Units= F 01/25/2023 2339-0 LOINC Blood Sugar Xxhpr=274.0 Units=mg/dL 01/19/2023 9279-1 [facility] Respiratory Rate Value=18.0 Units=/m in 01/09/2023 82809-1 [facility] O2 % BldC Oximetry Value=96.0 Units= % 01/09/2023 84881-2 LOINC Weight Dpawz=561.8 Units=Lbs 06/2023 8302-2 LOINC Height Value=72.0 Units=Inches 05/23/2022
--- OUTSIDE RECORDS SUMMARY | 2025-05-07 13:06 | XMS_ITS | Encounter Summary ---
Author Organization [facility] Address [address] [place] [address] Care Team Providers Care Swine Nutritionist Name Role Phone Gustavo Leggett MD Primary Care Provider [phone] Reason for Visit * Reason Onset Date Comments [facility] AND RX REFILL 08/12/2020 Encounter Details Date Type Department Care Team (Late st Contact Info) Description 08/12/2020 Telephone [facility] NEUROSURGERY [address] [facility] [address] [place] [address] Tra Gregg PA-C [address] [facility] [address] [place] [address] [facility] - HOME HEALTH AND [...] 9:05 AM EST Office note faxed to [employer] ([phone]). * Telephone Encounter - Betty Ramires MA - 08/12/2020 1:14 PM EST Lex: 02/15/2020 Diazepam 5MG 1955 60 30 [facility] 2 03/09/2020 Diazepam 5MG 1955 60 30 [facility] 2 04/12/2020 Diazepam 5MG 1955 60 30 [facility] 2 05/09/2020 Diazepam 5MG 1955 90 30 [facility] 2 06/10/2020 Diazepam 5MG 1955 60 20 [facility] 2 07/18/2020 Diazepam 5MG 1955 30 15 [facility] 1 * Telephone Encounter - Francisca [...] HE HAS FOUR LEFT. HIS PHARMACY IS [facility] IN [place], [place]. PLEASE ADVISE. SINA CAN BE REACHED AT [phone], ASK FOR BRANDEE OR ABEBE. THE PATIENT CAN BE REACHED AT [phone] THANK YOU! documented in this encounter Plan [...] documented as of this encounter Care Teams Swine Nutritionist Relationship Specialty Start Date End Date Gustavo Leggett MD [address] [place] [address] [place] [address] PCP - General Adolescent Medicine 07/14/23 documented as of this encounter
--- OUTSIDE RECORDS SUMMARY | 2025-05-07 13:06 | XMS_ITS | Clinical Summary ---
Author Organization [facility] Address [address] [place] [address] Phone Care Team Providers Care Insulation Blanket Maker Name Role Phone Mckenna MURILLO, Britton Clifford [ ] Conditions or Problems Problem Name Problem Code Onset Date Status Entry Date Provider Comment Standard Description Annotate DM Non-pressure chronic ulcer of left heel, black/dry (document depth) 757607473 (SNOMED CT) 09/19 Active 09/19 Crys Alfredo Chronic ulcer of foot Infection, local skin/subcuta neous tissue 135397152 (SNOMED CT) 09/19 Active 09/19 Crys Alfredo Localized infection of skin AND/OR subcutaneous tissue Gangrene with DM II PVD 35265582 (SNOMED CT) 09/19 Active 09/19 Crys Alfredo Type 2 diabetes mellitus DM II with diabetic PVD 084718160 (SNOMED CT) Active Crys Alfredo Peripheral vascular disease Diabetes mellitus, type II with peripheral vascular disorder, with gangrene 714911347 (SNOMED CT) Resolved Crys Alfredo Peripheral circulatory disorder due to type 2 diabetes mellitus Presence of ambrose catheter 801820085 (SNOMED CT) Resolved Crys Alfredo Urinary catheter in situ Benign Essential Hypertension 91585214 (SNOMED CT) Active Crys Alfredo Benign hypertension DM II with diabetic polyneuropat hy E11.42 (ICD-10-CM) Active Crys Alfredo Type 2 diabetes mellitus with diabetic polyneuropathy Other obesity due to excess calories 677880213 (SNOMED CT) Active Myranda Zelaya Simple obesity Presence of ambrose catheter 376341331 (SNOMED CT) Removed Bibi Edelen Urinary catheter in situ Pressure ulcer of left buttock, stage 1 46099637630 999550 (SNOMED CT) Active Bibi Edelen Pressure injury of buttock stage I Pressure ulcer of right buttock, stage 1 62510241838 107 (SNOMED CT) Active Bibi Edelen Pressure injury of right buttock stage I Cellulitis of left lower limb 387237604 (SNOMED CT) Active Bibi Edelen Cellulitis of leg, excluding foot Diabetes mellitus, type II with peripheral vascular disorder, with gangrene 652007629 (SNOMED CT) Removed Bibi Edelen Peripheral circulatory disorder due to type 2 diabetes mellitus Hx of DVT 256295466 (SNOMED CT) Active Bibi Edelen History of deep vein thrombosis Amputation of right leg above knee 939961775 (SNOMED CT) Active Bibi Edelen Amputated above knee Diabetes mellitus, type II with peripheral vascular disorder, without gangrene 770235790 (SNOMED CT) Inactive Bibi Edelen Peripheral circulatory disorder due to type 2 diabetes mellitus Diabetes mellitus, type II with peripheral neuropathy 25146211061 07 (SNOMED CT) Inactive Bibi Edelen Peripheral neuropathy due to type 2 diabetes mellitus Hypertension 90936284 (SNOMED CT) Inactive Bibi Edelen Hypertensive disorder Medications Medication Instructions Start Date Stop Date Generic Name NDC Provider DOXYCYCLINE HYCLATE 100 MG CAPS Take 1 capsule by mouth 2 (Two) Times a Day for 10 days. doxycycline hyclate 51429556397 QIE qieuser AMOXICILLIN-POT CLAVULANATE 875-125 MG TABS 1 {tbl} Oral amoxicillin-pot clavulanate 91553473708 QIE qieuser ATORVASTATIN CALCIUM 40 MG TABS Take 2 tablet by mouth every night atorvastatin 64504765305 Daria Minor METFORMIN HCL 500 MG TABS Take 2 tablet by mouth twice a day metformin 90024670290 Daria Minor CLOPIDOGREL BISULFATE 75 MG TABS Take 1 tablet by mouth once a day clopidogrel 53041195005 Daria Minor PEG 3350 17 GM PACK Take 17 gram by mouth once a day as needed polyethylene glycol 3350 85945221089 Daria Minor LAMOTRIGINE 100 MG TABS Take 1 tablet by mouth every morning lamotrigine 99184595347 Daria Minor FINASTERIDE 5 MG TABS Take 1 tablet by mouth once a day finasteride 09105565371 Daria Minor DOCUSATE SODIUM 250 MG CAPS Take 1 capsule by mouth twice a day docusate sodium 35583922078 Daria Minor ASPIRIN 81 MG TBEC Take 1 tablet by mouth once a day aspirin 89623556579 Daria Minor FUROSEMIDE 40 MG TABS Take 1 tablet by mouth once a day furosemide 91009100666 Daria Minor Thera M Plus (ferrous fumarat) 9 mg iron-400 mcg tablet Take 1 tablet by mouth once a day wijmlatx-gebj-d y-ggmftnm-rwow 49722016870 Daria Minor FERROUS SULFATE 325 (65 Fe) MG TABS Take 1 tablet by mouth every morning ferrous sulfate 00248501192 Daria Minor LAMOTRIGINE 25 MG TABS Take 10 tablet by mouth every night lamotrigine 87157735078 Daria Minor BACLOFEN 20 MG TABS Take 1 tablet by mouth as needed baclofen 28403965706 Daria Minor TAMSULOSIN HCL 0.4 MG CAPS Take 2 capsule by mouth once a day tamsulosin 01743945477 Daria Minor DIAZEPAM 2 MG TABS Take 1 tablet by mouth twice a day as needed diazepam 69379172298 Daria Minor LOSARTAN POTASSIUM 50 MG TABS Take 1 tablet by mouth once a day losartan 84216022292 Daria Minor BUSPIRONE HCL 5 MG TABS Take 1 tablet by mouth three times a day buspirone 15043729957 Daria Minor METOPROLOL SUCCINATE ER 25 MG QT14L-LCF Take 1 tablet by mouth once a day metoprolol succinate 59107097604 Daria Minor ubrogepant Take 1 tablet by mouth once a day as needed UBRELVY Daria Minor GLIPIZIDE 5 MG TABS Take 1 tablet by mouth twice a day glipizide 58408622083 Daria Minor ubrogepant Take 1 tablet by mouth Daily As Needed. UBRELVY QIE qieuser TAMSULOSIN HCL 0.4 MG CAPS Take 2 capsules by mouth Daily. tamsulosin 47417977391 QIE qieuser PEG 3350 17 GM PACK Take 17 g by mouth Daily As Needed. polyethylene glycol 3350 88461317460 QIE qieuser Thera M Plus (ferrous fumarat) 9 mg iron-400 mcg tablet Take 1 tablet by mouth Daily. jgzqdxhg-lzrs-a y-sdryzmw-chxe 10782475843 QIE qieuser METOPROLOL SUCCINATE ER 25 MG BS13T-FEP Take 1 tablet by mouth Daily. metoprolol succinate 88438505441 QIE qieuser METFORMIN HCL 500 MG TABS Take 2 tablets by mouth 2 (Two) Times a Day With Meals. metformin 69796336900 QIE qieuser LOSARTAN POTASSIUM 50 MG TABS Take 1 tablet by mouth Daily. losartan 66202892180 QIE qieuser LAMOTRIGINE 25 MG TABS Take 10 tablets by mouth Every Night. lamotrigine 16011627757 QIE qieuser LAMOTRIGINE 100 MG TABS Take 1 tablet by mouth Every Morning. lamotrigine 03351233786 QIE qieuser GLIPIZIDE 5 MG TABS Take 1 tablet by mouth 2 (Two) Times a Day Before Meals. glipizide 00675271602 QIE qieuser FUROSEMIDE 40 MG TABS Take 1 tablet by mouth Daily. furosemide 42037125244 QIE qieuser FINASTERIDE 5 MG TABS Take 1 tablet by mouth Daily. finasteride 56394835162 QIE qieuser FERROUS SULFATE 325 (65 Fe) MG TABS Take 1 tablet by mouth Daily With Breakfast. ferrous sulfate 32424283600 QIE qieuser DOXYCYCLINE HYCLATE 100 MG CAPS Take 1 capsule by mouth 2 (Two) Times a Day for 7 days. doxycycline hyclate 65492850198 QIE qieuser DOCUSATE SODIUM 250 MG CAPS Take 1 capsule by mouth 2 (Two) Times a Day. docusate sodium 35272040801 QIE qieuser DIAZEPAM 2 MG TABS Take 1 tablet by mouth 2 (Two) Times a Day As Needed for Anxiety. diazepam 62902422262 QIE qieuser CLOPIDOGREL BISULFATE 75 MG TABS Take 1 tablet by mouth Daily. clopidogrel 79880898306 QIE qieuser BUSPIRONE HCL 5 MG TABS Take 1 tablet by mouth 3 (Three) Times a Day. buspirone 22314484517 QIE qieuser BACLOFEN 20 MG TABS Take 1 tablet by mouth As Needed for Muscle Spasms. baclofen 84370846279 QIE qieuser ATORVASTATIN CALCIUM 40 MG TABS Take 2 tablets by mouth Every Night. atorvastatin 43458583793 QIE qieuser ASPIRIN 81 MG TBEC Take 1 tablet by mouth Daily. OTC aspirin 36952966083 QIE qieuser AMOXICILLIN-POT CLAVULANATE 875-125 MG TABS Take 1 tablet by mouth 2 (Two) Times a Day for 7 days. amoxicillin-pot clavulanate 12393042135 QIE qieuser Medications Administered No information available. [...]
--- OUTSIDE RECORDS SUMMARY | 2025-05-07 13:06 | XMS_ITS | Encounter Summary ---
Author Organization [facility] Address [address] [place] [address] Care Team Providers Care Music Director Name Role Phone Gustavo Leggett MD Primary Care Provider [phone] Reason for Visit * Reason Onset Date Comments SURGERY QUESTIONS 02/08/2020 Encounter Details Date Type Department Care Team (Late st Contact Info) Description 02/08/2020 Telephone [facility] NEUROSURGERY [address] [facility] [address] [place] [address] Tyree Tan MD SURGERY QUESTIONS [...] documented as of this encounter Care Teams Music Director Relationship Specialty Start Date End Date Gustavo Leggett MD [address] [facility] [address] [place] [address] PCP - General Adolescent Medicine 07/14/23 documented as of this encounter
--- OUTSIDE RECORDS SUMMARY | 2025-05-07 13:06 | XMS_ITS | Encounter Summary ---
Author Organization [facility] Address [address] [place] [address] Care Team Providers Care Plastic Card Grader Cardroom Name Role Phone Gustavo Leggett MD Primary Care Provider [phone] Reason for Visit * Reason Onset Date Comments HOME HEALTH ORDER 11/13/2020 Encounter Details Date Type Department Care Team (Late st Contact Info) Description 11/13/2020 Telephone [facility] NEUROSURGERY [address] [facility] [address] [place] [address] Tyree Tan MD HOME HEALTH [...] 11/14/2020 12:58 PM EST Called Sina at [phone] and there was no answer,simply said not [...] PT Relationship: SELF Best call back number: [phone] What orders are you requesting (i.e. lab [...] documented as of this encounter Care Teams Plastic Card Grader Cardroom Relationship Specialty Start Date End Date Gustavo Leggett MD [address] [facility] [address] [place] [address] PCP - General Adolescent Medicine 07/14/23 documented as of this encounter
--- OUTSIDE RECORDS SUMMARY | 2025-05-07 13:07 | XMS_ITS | Encounter Summary ---
Author Organization [facility] Address [address] [place] [address] Care Team Providers Care Tool And Die Maker/Designer Name Role Phone John Paul Orellana MD Primary Care Provider [phone] Encounter Details Date Type Department Care Team (Late st Contact Info) Description 08/04/2023 Community Orders Community Practice [address] [place] [address] Shree Anand MD [address] [facility] [address] [place] [address] Parkinsonian features (Primary Dx) Social [...] drink first t clarita in the morning (EYE-CHAIN MAKER HAND) to steady your nerves or to get [...] documented as of this encounter Care Teams Tool And Die Maker/Designer Relationship Specialty Start Date End Date John Paul Orellana MD [address] [place] [address] PCP - General 01/24/21 documented as of this encounter
--- OUTSIDE RECORDS SUMMARY | 2025-05-07 13:07 | XMS_ITS | Continuity of Care Document ---
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 Role Phone John Paul Orellana MD Primary Care Provider [phone] Encounters Date Type Department Care Team Description 05/23/2022 12:45 PM EDT - 05/23/2022 11:59 PM EDT [facility] En[facility] [address] [place] [address] System, Provider Not In Discharge Disposition: Home or Self Care 05/20/2022 3:19 AM EDT - 05/23/2022 2:00 PM EDT Hospital Encounter [facility] 3 Central Intensive Care Unit [address] [place] [address] Luz Kumari MD Knighton, Martha A, MD Acute encephalopathy (Primary Dx); Acute respiratory failure with hypoxia Discharge Disposition: Intermediate Facility 04/13/2022 9:45 AM EDT Office Visit [address] [address] Cecil Carrillo MD Meningioma (Primary Dx) 04/01/2022 1:12 PM EDT - 04/05/2022 5:41 PM EDT Hospital Encounter [facility] [address] [place] [address] Carter Barajas DO Status epilepticus (Primary Dx) Discharge Disposition: Intermediate Facility Allergies Active Allergy Reactions Criticality Noted [...] Father Social History Smoking Status as of 05/07/2025 Tobacco Use Types Packs/Day Years Used Date [...] of28 resultswithin the time period is included. [facility] Glucose Glucometer 139 71 - 139 mg/dL 05/23/2022 11:59 AM EDT [facility] Serum 05/23/2022 11:5 5 AM EDT 05/23/2022 11:59 AM EDT us Enedina Chavis MD LAB BLOOD ORDERABLES Final Result [facility] ([id number]) [address] [place] [address] [facility] [address] [place] [address] * COVID FLU RSV PCR Panel: Reason for Testing: Asymptomatic Transfer to Another Facility for Patient Placement (05/22/2022 3:23 PM EDT) Only the most recent of2 resultswithin the time period is included. [facility] COVID, FLU, RSV Source Nasopharyngeal 05/22/2022 2:27 PM EDT [facility] FLU A Result Not Detected Not Detected 05/22/2022 4:13 PM EDT [facility] FLU B Result Not Detected Not Detected 05/22/2022 4:13 PM EDT [facility] RSV Result Not Detected Not Detected 05/22/2022 4:13 PM EDT [facility] COVID-19 Result Not Detected Not Detected 05/22/2022 4:13 PM EDT [facility] COVID Result Comment (note) This [...] and Drug Administration. 05/22/2022 4:13 PM EDT [facility] Reason for Testing ASYMPTOMATIC TRANSFER TO ANOTHER FACILITY FOR PATIENT PLACEMENT 05/22/2022 2:27 PM EDT [facility] Nasopharyngeal 05/22/2022 3: 23 PM EDT 05/22/2022 3:33 PM EDT Enedina Chavis MD MICROBIOLOGY [facility] Final Result [facility] ([id number]) [address] [place] [address] [facility] [address] * [place] Modified Barium Swallow (05/22/2022 [...] 4.5 - 11.0 10*3/uL 05/22/2022 5:03 AM [facility] Red Blood Count 3.24(L) 4.5 - 5.9 10*6/uL 05/22/2022 5:03 AM [facility] Hemoglobin 9.0(L) 13.5 - 17.5 g/dL 05/22/2022 5:03 AM [facility] Hematocrit 28.6(L) 41.0 - 53.0 % 05/22/2022 5:03 AM [facility] Mean Corpuscular Volume 88.3 80.0 - 100.0 fL 05/22/2022 5:03 AM [facility] Mean Corpuscular Hemoglobin 27.8 26.0 - 34.0 pg 05/22/2022 5:03 AM [facility] Mean Corpuscular HGB Conc 31.5 31.0 - 37.0 g/dL 05/22/2022 5:03 AM [facility] Red Cell Distribution Width-CV 13.9 12.0 - 16.8 % 05/22/2022 5:03 AM [facility] Platelet Count 244 140 - 440 10*3/uL 05/22/2022 5:03 AM [facility] Mean Platelet Volume 10.0 8.4 - 12.4 fL 05/22/2022 5:03 AM [facility] Diff Type Hospital CBC w/AutoDiff (arb'U) 05/22/2022 5:03 AM [facility] Neutrophils % 75.4 45 - 80 % 05/22/2022 5:03 AM [facility] Lymphocyte % 14.7(L) 15 - 50 % 05/22/2022 5:03 AM [facility] Monocyte % 6.7 0 - 15 % 05/22/2022 5:03 AM [facility] Eosinophil% 1.5 0 - 7 % 05/22/2022 5:03 AM [facility] BASO% 0.4 0 - 2 % 05/22/2022 5:03 AM [facility] Immature Granulocyte% 1.3(H) 0.0 - 1.0 % 05/22/2022 5:03 AM EDT [facility] Nucleated RBC % 0 0 /100(WBC) 05/22/2022 5:03 AM EDT [facility] Neutrophil Abs 7.09 2.0 - 8.8 10*3/uL 05/22/2022 5:03 AM EDT [facility] Lymphocyte-Absol loreto 1.38 0.7 - 5.5 10*3/uL 05/22/2022 5:03 AM EDT [facility] Monocyte Absolute 0.63 0.0 - 1.7 10*3/uL 05/22/2022 5:03 AM EDT [facility] EOS-Absolute 0.14 0.0 - 0.8 10*3/uL 05/22/2022 5:03 AM EDT [facility] Basophil Abs 0.04 0.0 - 0.2 10*3/uL [facility] Granul[facility] Abs 0.12(H) 0.00 - 0.10 10*3/uL 05/22/2022 5:03 AM [facility] Whole Blood BLOOD SPECIMEN FROM PATIENT / Unknown 05/22/2022 4:44 AM EDT 05/22/2022 4:52 AM EDT us Enedina Chavis MD LAB BLOOD ORDERABLES Final Result [facility] ([id number]) [address] [place] [address] [facility] [address] [place] [address] * (ABNORMAL) Magnesium (05/22/2022 4:44 AM EDT) Only the most recent of5 resultswithin the time period is included. Magnesium 1.5(L) 1.6 - 2.6 mg/dL 05/22/2022 5:09 AM T [facility] Plasma BLOOD SPECIMEN FROM PATIENT / Unknown 05/22/2022 4:44 AM EDT 05/22/2022 4:52 AM EDT us Luz Kumari MD LAB BLOOD ORDERABLES Final Result [facility] ([id number]) [address] [place] [address] [facility] [address] [place] [address] * (ABNORMAL) Basic Metabolic Panel (BMP) (05/22/2022 4:44 AM EDT) Only the most recent of5 resultswithin the time period is included. Sodium 137 136 - 145 mmol/L 05/22/2022 5:10 AM T [facility] Comment: (note) Excess protein and/or lipids can falsely decrease sodium levels (pseudo hyponatremia). Potassium 3.9 3.5 - 5.1 mmol/L 05/22/2022 5:10 AM EDT [facility] Chloride 107 98 - 107 mmol/L 05/22/2022 5:10 AM [facility] Comment: (note) Falsely elevated chloride levels can be seen in patients taking medications which contain bromide. Carbon Dioxide 23 22 - 29 mmol/L 05/22/2022 5:10 AM [facility] Anion Gap 7 5 - 13 (arb'U) 05/22/2022 5:10 AM [facility] Comment: (note) Calculation- Na - (Cl + CO2) Glucose 155(H) 71 - 139 mg/dL 05/22/2022 5:10 AM [facility] Comment: (note) Reference range based on inpatient hypo/hyperglycemic treatment levels. A random glucose =/>200 is concerning for poor control. Blood Urea Nitrogen (BUN) 17 8 - 26 mg/dL 05/22/2022 5:10 AM EDT [facility] Creatinine-Bloo d 0.48(L) 0.73 - 1.18 mg/dL 05/22/2022 5:10 AM [facility] BUN/Creatinine Ratio 35.4 RATIO 05/22/2022 5:10 AM [facility] Estimated GFR >60 >60 /1.73 m2 05/22/2022 5:10 AM EDT [facility] Comment: (note) Results do not take into account body mass. Valid for patients 18 to 70 years of age. Estimated GFR if -Lissy n >60 >60 /1.73 m2 05/22/2022 5:10 AM EDT [facility] Comment: (note) Results do not take into account body mass. Valid for patients 18 to 70 years of age. Calcium 7.9(L) 8.4 - 10.2 mg/dL 05/22/2022 5:10 AM EDT [facility] Plasma BLOOD SPECIMEN FROM PATIENT / Unknown 05/22/2022 4:44 AM EDT 05/22/2022 4:52 AM EDT us Enedina Chavis MD LAB BLOOD ORDERABLES Final Result [facility] ([id number]) [address] [place] [id number] [facility] [address] [place] [address] * Echo Doppler 2D Mmode Color Complete (05/21/2022 3:26 PM EDT) 05/21/2022 2:54 PM EDT Narrative [facility] - 05/21/2022 6:45 PM EDT REVIEWING YOUR TEST RESULTS IN [facility] IS NOT A SUBSTITUTE FOR DISCUSSING THOSE RESULTS WITH YOUR HEALTH CARE PROVIDER. PLEASE CONTACT YOUR PROVIDER VIA [facility] TO DISCUSS ANY QUESTIONS OR CONCERNS YOU MAY HAVE REGARDING THESE TEST RESULTS. CARDIOLOGY REPORT FACILITY: [facility] PATIENT NAME/: VITALY CASILLAS 1955 UNIT/AGE/GENDER: AGE: 67 YR GENDER: M UNIT NUMBER: [id number] ACCESSION NUMBER: [id number] DATE OF EXAM: 05/21/2022 14:54 EXAMINATION(S): ECHO DOPPLER 2D MMODE SPECT COLOR COMPLETE FINAL REPORT Procedure Information Procedure type: Echo Proc. sub type: TTE procedure: ECHO DOPPLER 2D MMODE SPECT COLOR COMPLETE. Start date time: 05/21/2022 Blood pressure: 118 / 60 mmHg Contrast medium: Lumason Accession no: [id number] Procedure Staff Referring Physician: Enedina Chaves Heading Repairer: Kiki Harper Interpreting Physician: *[employer] Supervisor Bennie Montano Clinical Indications Syncope. Physician [...] - 05/21/2022 REVIEWING YOUR TEST RESULTS IN [facility] IS NOT A SUBSTITUTE FORDISCUSSING THOSE RESULTS WITH YOUR HEALTH CARE PROVIDER. PLEASE CONTACT YOUR PROVIDER VIA [facility] TO DISCUSS ANY QUESTIONS ORCONCERNS YOU MAY HAVE REGARDING THESE TEST RESULTS. CARDIOLOGY REPORT FACILITY: [facility] PATIENT NAME/: VITALY CASILLAS 1955 UNIT/AGE/GENDER: AGE: 67 YR GENDER: M UNIT NUMBER: [id number] ACCESSION NUMBER: [id number] DATE OF EXAM: 05/21/2022 14:54 EXAMINATION(S): ECHO DOPPLER 2D MMODE SPECT COLOR COMPLETE FINAL REPORT ProcedureInformation Procedure type: Echo Proc. sub type: TTE procedure: ECHO DOPPLER 2D MMODE SPECT COLORCOMPLETE. Start date time: 05/21/2022 Bloodpressure: 118 / 60 mmHg Contrast medium: Lumason Accession no: [id number] Procedure Staff Referring Physician: Enedina Chaves Heading Repairer: Kiki Harper Interpreting Physician: *[employer] Supervisor Bennie Montano Clinical Indications Syncope. Physician [...] CARE PROVIDER. PLEASE CONTACT YOUR PROVIDER VIA [employer] TO DISCUSS ANY QUESTIONS OR CONCERNS YOU MAY HAVE REGARDING THESE TEST RESULTS. RADIOLOGY REPORT FACILITY: [facility] UNIT/AGE/GENDER: Tracy.ICU IN AGE:67 Y SEX:M PATIENT NAME/: VITALY CASILLAS LAYNE 1955 UNIT NUMBER: [id number] ACCESSION NUMBER: [id number] CTA Head CTA Neck Examination Date: 05/21/2022 [...] and Basilar Arteries: Codominant. No significant stenosis. book trimmer: Unremarkable. Superior Cerebellar and PICAs: Patent proximally. [...] REVIEWING YOUR TEST RESULTS IN [facility] IS NOT A SUBSTITUTE FORDISCUSSING THOSE RESULTS WITH YOUR HEALTH CARE PROVIDER. PLEASE CONTACT YOUR PROVIDER VIA [facility] TO DISCUSS ANY QUESTIONS ORCONCERNS YOU MAY HAVE REGARDING THESE TEST RESULTS. RADIOLOGY REPORT FACILITY: [facility] UNIT/AGE/GENDER: J.ICU IN AGE:67 Y SEX:M PATIENT NAME/: VITALY CASILLAS LAYNE 1955 UNIT NUMBER: [id number] ACCESSION NUMBER: [id number] CTA Head CTA Neck Examination Date: 05/21/2022 [...] and Basilar Arteries: Codominant. No significant stenosis. book trimmer: Unremarkable. Superior Cerebellar and PICAs: Patent proximally. [...] M.D.> 05/21/202240 [phone] us Cinthia Snell GENERAL SUPERVISOR IMG CT ORDERABLES Final Re sult * CT Angiogram Head (05/21/2022 6:21 AM EDT) Anatomical Region Laterality Modality Head Computed Tomogra phy 05/21/2022 8:35 AM EDT Narrative 05/21/2022 8:41 AM EDT REVIEWING YOUR TEST RESULTS IN [facility] IS NOT A SUBSTITUTE FOR DISCUSSING THOSE RESULTS WITH YOUR HEALTH CARE PROVIDER. PLEASE CONTACT YOUR PROVIDER VIA [facility] TO DISCUSS ANY QUESTIONS OR CONCERNS YOU MAY HAVE REGARDING THESE TEST RESULTS. RADIOLOGY REPORT FACILITY: [facility] UNIT/AGE/GENDER: J.ICU IN AGE:67 Y SEX:M PATIENT NAME/: VITALY CASILLAS LAYNE 1955 UNIT NUMBER: [id number] ACCESSION NUMBER: [id number] CTA Head CTA Neck Examination Date: 05/21/2022 [...] and Basilar Arteries: Codominant. No significant stenosis. book trimmer: Unremarkable. Superior Cerebellar and PICAs: Patent proximally. [...] REVIEWING YOUR TEST RESULTS IN [facility] IS NOT A SUBSTITUTE FORDISCUSSING THOSE RESULTS WITH YOUR HEALTH CARE PROVIDER. PLEASE CONTACT YOUR PROVIDER [facility] TO DISCUSS ANY QUESTIONS ORCONCERNS YOU MAY HAVE REGARDING THESE TEST RESULTS. RADIOLOGY REPORT FACILITY: [facility] UNIT/AGE/GENDER: J.ICU IN AGE:67 Y SEX:M PATIENT NAME/: VITALY CASILLAS LAYNE 1955 UNIT NUMBER: [id number] ACCESSION NUMBER: [id number] CTA Head CTA Neck Examination Date: 05/21/2022 [...] and Basilar Arteries: Codominant. No significant stenosis. book trimmer: Unremarkable. Superior Cerebellar and PICAs: Patent proximally. [...] M.D.> 05/21/202240 [phone] us Cinthia Snell GENERAL SUPERVISOR IMG CT ORDERABLES Final Re sult * Phosphorus (05/21/2022 4:32 AM EDT) Only the most recent of2 resultswithin the time period is included. Phosphorus 3.8 2.3 - 4.7 mg/dL 05/21/2022 5:21 AM EDT [facility] Plasma BLOOD SPECIMEN FROM PATIENT / Unknown 05/21/2022 4:32 AM EDT 05/21/2022 4:56 AM EDT us Enedina Chavis MD LAB BLOOD ORDERABLES Final Result [facility] ([id number]) [address] [place] [address] [facility] [address] [place] [address] * Holter Monitor Placement (05/20/2022 5:53 PM EDT) 05/20/2022 5:12 PM EDT Narrative [facility] - 05/22/2022 10:39 PM EDT REVIEWING YOUR TEST RESULTS IN [facility] IS NOT A SUBSTITUTE FOR DISCUSSING THOSE RESULTS WITH YOUR HEALTH CARE PROVIDER. PLEASE CONTACT YOUR PROVIDER VIA [employer] TO DISCUSS ANY QUESTIONS OR CONCERNS YOU MAY HAVE REGARDING THESE TEST RESULTS. CARDIOLOGY REPORT FACILITY: [facility] PATIENT NAME/: VITALY CASILLAS 1955 UNIT/AGE/GENDER: AGE: 67 YR GENDER: M UNIT NUMBER: [id number] ACCESSION NUMBER: [id number] DATE OF EXAM: 05/20/2022 17:12 EXAMINATION(S): HOLTER [...] - 05/22/2022 REVIEWING YOUR TEST RESULTS [facility] IS NOT A SUBSTITUTE FORDISCUSSING THOSE RESULTS WITH YOUR HEALTH CARE PROVIDER. PLEASE CONTACT YOUR PROVIDER VIA [employer] TO DISCUSS ANY QUESTIONS ORCONCERNS YOU MAY HAVE REGARDING THESE TEST RESULTS. CARDIOLOGY REPORT FACILITY: [facility] PATIENT NAME/: VITALY CASILLAS 1955 UNIT/AGE/GENDER: AGE: 67 YR GENDER: M UNIT NUMBER: [id number] ACCESSION NUMBER: [id number] DATE OF EXAM: 05/20/2022 17:12 EXAMINATION(S): HOLTER [...] CV CARDIAC SERVICES ORDE NOEL Final Result [facility] * EKG 12 lead (05/20/2022 5:02 PM EDT) 05/20/2022 5:02 PM EDT Narrative [facility] - 05/21/2022 8:39 AM EDT CARDIOLOGY REPORT FACILITY: [facility] PATIENT NAME/: VITALY CASILLAS 1955 UNIT/AGE/GENDER: AGE: 67 YR GENDER: M UNIT NUMBER: [id number] ACCESSION NUMBER: [id number] DATE OF EXAM: 05/20/2022 17:02 EXAMINATION(S): ECG 12-LEAD FINAL REPORT Procedure: ELECTROCARDIOGRAM RESULT Heart Rate 56 P-R Interval 140 ms QRS Interval 110 ms QT Interval 468 ms QTC Interval 452 ms P Walker 22 deg QRS Walker 21 deg T Wave Walker 7 deg DATE: 05/20/2022 17:02 SINUS BRADYCARDIA NONSPECIFIC INTRAVENTRICULAR CONDUCTION DELAY Summary: Abnormal ECG Electronically signed by Dominick Murphy 05/21/2022 08:39 Procedure Note Jeffrey Tan MD - 05/21/2022 CARDIOLOGY REPORT FACILITY: [facility] PATIENT NAME/: VITALY CASILLAS 1955 UNIT/AGE/GENDER: AGE: 67 YR GENDER: M UNIT NUMBER: [id number] ACCESSION NUMBER: [id number] DATE OF EXAM: 05/20/2022 17:02 EXAMINATION(S): ECG 12-LEAD FINAL REPORT Procedure: ELECTROCARDIOGRAM RESULT Heart Rate 56 P-R Interval 140 ms QRS Interval 110 ms QT Interval 468 ms QTC Interval 452 ms P Walker 22 deg QRS Walker 21 deg T Wave Walker 7 deg DATE: 05/20/2022 17:02 SINUS BRADYCARDIA NONSPECIFIC INTRAVENTRICULAR CONDUCTION DELAY Summary: Abnormal ECG Electronically signed by Dominick Murphy 05/21/2022 08:39 us Julio Wharton MD ECG ORDERABLES Final Result [facility] * 20 min. EEG routine Normal Sleep (05/20/2022 2:58 PM EDT) Narrative [facility] - 05/20/2022 2:58 PM EDT Tyree Donovan MD 05/20/2022 3:04 PM ADULT ELECTROENCEPHALOGRAM REPORT FACILITY: [facility] AGE/GENDER: 67 yr/o male PATIENT NAME/: Vitaly Casillas 1955 PROCEDURE DATE: 05/20/2022 EXAM# : [id number] CLINICAL INFORMATION: AMS RECORDING CONDITIONS: This is [...] of seizures. Tyree Donovan II, MD [facility] Lissette Perry Handshoe DO NEUROLOGY ORDERABLES Fin al Result [facility] * (ABNORMAL) .Urinalysis with microscopic, reflex culture (05/20/2022 6:34 AM EDT) Only the most recent of2 resultswithin the time period is included. Color-Urine Yellow 05/20/2022 7:02 AM [facility] Clarity-Urine Clear 05/20/2022 7:02 AM [facility] Specific [place] Urine 1.034(H) 1.005 - 1.030 (arb'U) 05/20/2022 7:02 AM [facility] Comment:Elevated specific gr avity may be seen when urine contains x ray contrast media, plasma expanders, and/or large amounts of glucose or protein. Correlate specific gravity findings to patient clinical history. pH-Urine 8.5 5.0 - 9.0 (pH) 05/20/2022 7:02 AM [facility] Protein-Urine 600(A) Negative mg/dL 05/20/2022 7:02 AM [facility] Glucose-Urine 50(A) Negative mg/dL 05/20/2022 7:02 AM [facility] Ketone-Urine Negative Negative mg/dL 05/20/2022 7:02 AM [facility] Bilirubin-Urine Negative Negative mg/dL 05/20/2022 7:02 AM [facility] Occult Blood-Urine 1+(A) Negative (arb'U) 05/20/2022 7:02 AM [facility] Nitrite-Urine Negative Negative (arb'U) 05/20/2022 7:02 AM [facility] Urobilinogen-Uri ne Normal Normal (EhrlichU)/ dL 05/20/2022 7:02 AM [facility] Leukocyte Esterase-Urine 25(A) Negative (arb'U) 05/20/2022 7:02 AM [facility] Source-Urine Urine De Los Santos Cath 05/20/2022 5:22 AM [facility] WBC-Urine 40(H) 0 - 3 (HPF) 05/20/2022 7:02 AM [facility] RBC-Urine 45(H) 0 - 2 (HPF) 05/20/2022 7:02 AM [facility] Squamous Epithelial-Urine <1 0 - 4 (HPF) 05/20/2022 7:02 AM [facility] Bacteria-Urine TRACE(A) None Seen (HPF) 05/20/2022 7:02 AM [facility] Mucus-Urine TRACE(A) None Seen (LPF) 05/20/2022 7:02 AM [facility] Transitional Epithelial-Urine <1 0 - 2 (HPF) 05/20/2022 7:02 AM [facility] Urine URINE SPECIMEN / Unknown 05/20/2022 6:34 AM EDT 05/20/2022 6:50 AM EDT us Luz Kumari MD URINE ORDERABLES Becca lynne Result [facility] ([id number]) [address] [place] [address] [facility] [address] [place] [address] * (ABNORMAL) Toxicology Screen, urine (05/20/2022 6:34 AM EDT) Amphetamines-Urine Scrn Negative Negative 05/20/2022 7:04 AM T [facility] Comment: Screening cut off 500ng/mL. (note) Testing for medical purposes only. Positive results are not automatically confirmed. This assay has poor sensitivity for methylphenidate (eg Ritalin), a methylphenidate specific assay is needed to monitor compliance with these medications. Barbiturates-Urine Screen POSITIVE(A) Negative 05/20/2022 7:04 AM T [facility] Comment: Screening cut off 200ng/mL. (note) Testing for medical purposes only. Positive results are not automatically confirmed. Benzodiazepines-Ur ine Screen POSITIVE(A) Negative 05/20/2022 7:04 AM [facility] Comment: Screening cut off 200ng/mL. (note) Testing for medical purposes only. Positive results are not automatically confirmed. Cannabinoids-Urine Screen Negative Negative 05/20/2022 7:04 AM [facility] Comment: Screening cut off 50ng/mL. (note) Testing for medical purposes only. Positive results are not automatically confirmed. Cocaine-Urine Screen Negative Negative 05/20/2022 7:04 AM [facility] Comment: Screening cut off 300ng/mL. (note) Testing for medical purposes only. Positive results are not automatically confirmed. Opiates-Urine Screen Negative Negative 05/20/2022 7:04 AM [facility] Comment: Screening cut off 300ng/mL. (note) Testing [...] Kumari MD URINE ORDERABLES Becca lynne Result [facility] ([id number]) [address] [place] [address] [facility] [address] [place] [address] * Culture,Urine (05/20/2022 6:34 AM EDT) Special Requests Urine (arb'U) 05/23/2022 1:54 PM EDT [facility] Culture Final no growth 05/21/2022 9:32 AM EDT [facility] Urine 05/20/2022 6:34 AM EDT 05/20/2022 6:50 AM EDT Luz Kumari MD MICROBIOLOGY - GENERA L ORDERABLES Final Result [facility] [address] [facility] [address] [place] [address] [facility] [address] [facility] [address] [place] [address] * (ABNORMAL) Lactic Acid (05/20/2022 4:33 AM EDT) Pathologist [facility] Lactic Acid 2.2(H) 0.7 - 2.0 mmol/L 05/20/2022 4:38 AM EDT [facility] RT Serum BLOOD SPECIMEN FROM PATIENT / Unknown 05/20/2022 4:33 AM EDT 05/20/2022 4:32 AM EDT us Luz Kumari MD LAB BLOOD ORDERABLES Final Result [facility] RT [address] [place] [address], [facility] [phone] [facility] RT [address] [place] [address] * .Partial Thromboplastin Time (05/20/2022 4:33 AM EDT) Only the most recent of3 resultswithin the time period is included. Partial Thromboplastin Time 25.3 25.1 - 36.5 s 05/20/2022 5:06 AM EDT [facility] Comment: (note) Anticoagulants may alter [...] BLOOD ORDERABLES Final Result Performing Organization Address [facility] Co de Phone Number [facility] ([phone]) [address] [place] [address] [address] * Troponin (05/20/2022 4:33 AM EDT) [facility] Troponin 0.012 0.000 - 0.028 ng/mL 05/20/2022 4:55 AM EDT [facility] Comment: (note) Levels >0.028 are greater than the 99th percentile and suggest possible need for clinical correlation and serial testing. Plasma BLOOD SPECIMEN FROM PATIENT / Unknown 05/20/2022 4:33 AM EDT 05/20/2022 4:33 AM EDT Luz Kumari MD LAB BLOOD ORDERABLES Final Result Performing Organization Address City/[facility]/ZIP Co de Phone Number [facility] ([phone]) [address] [place] [address] [address] * (ABNORMAL) Urinalysis (05/20/2022 4:33 AM EDT) Only the most recent of2 resultswithin the time period is included. Color-Urine Light yellow 05/20/2022 5:03 AM [facility] Clarity-Urine Clear 05/20/2022 5:03 AM [facility] Specific [place] Urine 1.038(H) 1.005 - 1.030 (arb'U) 05/20/2022 5:03 AM [facility] Comment:Elevated specific gr avity may be seen when urine contains x ray contrast media, plasma expanders, and/or large amounts of glucose or protein. Correlate specific gravity findings to patient clinical history. pH-Urine 8.0 5.0 - 9.0 (pH) 05/20/2022 5:03 AM [facility] Protein-Urine >600(A) Negative mg/dL 05/20/2022 5:03 AM [facility] Glucose-Urine 50(A) Negative mg/dL 05/20/2022 5:03 AM [facility] Ketone-Urine Negative Negative mg/dL 05/20/2022 5:03 AM [facility] Bilirubin-Uri ne Negative Negative mg/dL 05/20/2022 5:03 AM [facility] Occult Blood-Urine 1+(A) Negative (arb'U) 05/20/2022 5:03 AM [facility] Nitrite-Urine Negative Negative (arb'U) 05/20/2022 5:03 AM [facility] Urobilinogen- Urine Normal Normal (EhrlichU)/ dL 05/20/2022 5:03 AM [facility] Leukocyte Esterase-Urin e Negative Negative (arb'U) 05/20/2022 5:03 AM [facility] Source-Urine Urine De Los Santos Cath 05/20/2022 3:45 AM [facility] Reflex Microscopic? Microscopic performed 05/20/2022 5:03 AM [facility] RBC-Urine 47(H) 0 - 2 (HPF) 05/20/2022 5:03 AM [facility] WBC-Urine 30(H) 0 - 3 (HPF) 05/20/2022 5:03 AM EDT [facility] Squamous Epithelial-Ur ine <1 0 - 4 (HPF) 05/20/2022 5:03 AM EDT [facility] Bacteria-Urin e TRACE(A) None Seen (HPF) 05/20/2022 5:03 AM EDT [facility] Urine URINE SPECIMEN / Unknown 05/20/2022 4:33 AM EDT 05/20/2022 4:55 AM EDT us Luz Kumari MD URINE ORDERABLES Becca lynne Result [facility] ([id number]) [address] [place] [address] [facility] [address] [place] [address] * Protime-INR (05/20/2022 4:33 AM EDT) Only the most recent of3 resultswithin the time period is included. Prothrombin Time 11.4 10.3 - 13.3 s 05/20/2022 5:06 AM EDT [facility] Comment: (note) Anticoagulants may alter the results of Laboratory Coagulation assays. New-generation anticoagulants such as direct Thrombin inhibitors (Dabigatran/Pradaxa, Argatroban, Bivalrudin) and direct/indirect factor Xa inhibitors (Rivaroxaban/Xarelto,Apixaban/Eliquis, Danaparoid/Orgaran, Fondaparinux/Arixtra) have been shown to affect the results of Laboratory Coagulation assays, creating falsely elevated or decreased values. Correlation with medication history is advised. INR 1.0 INR 05/20/2022 5:06 AM EDT [facility] Comment: INR Therapeutic Ranges: Low Intensity Range: 2.0-3.0 High Intensity Range: 3.0-4.5 Plasma BLOOD SPECIMEN FROM PATIENT / Unknown 05/20/2022 4:33 AM EDT 05/20/2022 4:33 AM EDT us Luz Kumari MD LAB BLOOD ORDERABLES Final Result [facility] ([id number]) [address] [place] [address] [facility] [address] [place] [address] * (ABNORMAL) CK (05/20/2022 4:33 AM EDT) CK 28(L) 30 - 200 U/L 05/20/2022 4:58 AM EDT [facility] Plasma BLOOD SPECIMEN FROM PATIENT / Unknown 05/20/2022 4:33 AM EDT 05/20/2022 4:33 AM EDT us Luz Kumari MD LAB BLOOD ORDERABLES Final Result Performing Organization Address City/[facility]/ZIP Co de Phone Number [facility] ([id number]) [address] [place] [address] [facility] [address] [place] [address] * XR Chest 1 Vw (05/20/2022 4:03 AM EDT) Only the most recent of3 resultswithin the time period is included. Anatomical Region Laterality Modality Chest [facility] Radiographic Imaging 05/20/2022 7:17 AM EDT Narrative 05/20/2022 7:19 AM EDT REVIEWING YOUR TEST RESULTS IN [facility] IS NOT A SUBSTITUTE FOR DISCUSSING THOSE RESULTS WITH YOUR HEALTH CARE PROVIDER. PLEASE CONTACT YOUR PROVIDER VIA [facility] TO DISCUSS ANY QUESTIONS OR CONCERNS YOU MAY HAVE REGARDING THESE TEST RESULTS. RADIOLOGY REPORT FACILITY: [facility] UNIT/AGE/GENDER: J.ICU IN AGE:67 Y SEX:M PATIENT NAME/: VITALY CASILLAS 1955 UNIT NUMBER: [id number] ACCESSION NUMBER: [id number] PORTABLE AP CHEST, SINGLE VIEW DATE: 05/20/2022 [...] - 05/20/2022 [facility] A SUB[facility] FORDISCUSSING THOSE RESULTS WITH YOUR HEALTH CARE PROVIDER. PLEASE CONTACT YOUR PROVIDER VIA [employer] TO DISCUSS ANY QUESTIONS ORCONCERNS YOU MAY HAVE REGARDING THESE TEST RESULTS. RADIOLOGY REPORT FACILITY: [facility] UNIT/AGE/GENDER: J.ICU IN AGE:67 Y SEX:M PATIENT NAME/: VITALY CASILLAS 1955 UNIT NUMBER: [id number] ACCESSION NUMBER: [id number] PORTABLE AP CHEST, SINGLE VIEW DATE: 05/20/2022 [...] Test POSITIVE (arb'U) 05/20/2022 3:57 AM EDT [facility] RT Temperature-AB G 37.0 37.0 Clara 05/20/2022 3:57 AM EDT [facility] RT pH-ABG 7.51(H) 7.35 - 7.45 PH 05/20/2022 3:57 AM EDT [facility] RT PCO2-ABG 38 35 - 48 mm(Hg) 05/20/2022 3:57 AM EDT [facility] RT PO2-ABG 128(H) 83 - 108 mm(Hg) 05/20/2022 3:57 AM EDT [facility] RT HCO3-ABG 30 22 - 30 mmol/L 05/20/2022 3:57 AM EDT [facility] RT WK70-[id number] 31(H) 19 - 24 mmol/L 05/20/2022 3:57 AM T [facility] RT Base Excess-ABG 6.7(H) 0.0 - 3.0 mmol/L 05/20/2022 3:57 AM T [facility] RT O2 Sat-ABG 100.0(H) 95.0 - 98.0 % 05/20/2022 3:57 AM EDT [facility] RT Whole Blood 05/20/2022 3:56 AM EDT 05/20/2022 3:57 AM EDT us Luz Kumari MD LAB BLOOD ORDERABLES Final Result [facility] RT [address] [place] [address], [facility] [phone] [facility] RT [address] [place] [address] * Culture,Blood (05/20/2022 3:53 AM EDT) Only the most recent of2 resultswithin the time period is included. Culture No Growth 05/26/2022 5:54 AM EDT [facility] Blood ARTERIAL LINE SUBMITTED SPECIMEN / Unknown 05/20/2022 3:53 AM EDT 05/20/2022 3:58 AM EDT Comment:Central Line us Luz Kumari MD MICROBIOLOGY - GENERA L ORDERABLES Final Result [facility] [address] [place] [address] [facility] [address] [place] [address] * (ABNORMAL) Comprehensive Metabolic Panel (CMP) (05/20/2022 3:47 AM EDT) Only the most recent of2 resultswithin the time period is included. Sodium 140 136 - 145 mmol/L 05/20/2022 4:18 AM [facility] Comment: (note) Excess protein and/or lipids can falsely decrease sodium levels (pseudo hyponatremia). Potassium 4.0 3.5 - 5.1 mmol/L 05/20/2022 4:18 AM [facility] Chloride 104 98 - 107 mmol/L 05/20/2022 4:18 AM [facility] Comment: (note) Falsely elevated chloride levels can be seen in patients taking medications which contain bromide. Carbon Dioxide 28 22 - 29 mmol/L 05/20/2022 4:18 AM [facility] Anion Gap 8 5 - 13 (arb'U) 05/20/2022 4:18 AM [facility] Comment: (note) Calculation- Na - (Cl + CO2) Glucose 118 71 - 139 mg/dL 05/20/2022 4:18 AM [facility] Comment: (note) Reference range based on inpatient hypo/hyperglycemic treatment levels. A random glucose =/>200 is concerning for poor control. Blood Urea Nitrogen (BUN) 23 8 - 26 mg/dL 05/20/2022 4:18 AM [facility] Creatinine-Blood 0.45(L) 0.73 - 1.18 mg/dL 05/20/2022 4:18 AM [facility] BUN/Creatinine Ratio 51.1 RATIO 05/20/2022 4:18 AM T [facility] Estimated GFR >60 >60 /1.73 m2 05/20/2022 4:18 AM T [facility] Comment: (note) Results do not take into account body mass. Valid for patients 18 to 70 years of age. Estimated GFR if -Danish >60 >60 /1.73 m2 05/20/2022 4:18 AM T [facility] Comment: (note) Results do not take into account body mass. Valid for patients 18 to 70 years of age. Total Protein 6.2 6.2 - 8.0 g/dL 05/20/2022 4:18 AM T [facility] Albumin 3.3 3.2 - 4.6 g/dL 05/20/2022 4:18 AM [facility] Globulin 2.9 1.5 - 4.5 g/dL 05/20/2022 4:18 AM [facility] Albumin/Globulin Ratio 1.1 1.1 - 2.5 RATIO 05/20/2022 4:18 AM [facility] Calcium 9.0 8.4 - 10.2 mg/dL 05/20/2022 4:18 AM [facility] Total Bilirubin 0.3 0.2 - 1.2 mg/dL 05/20/2022 4:18 AM [facility] AST/SGOT 10 5 - 34 U/L 05/20/2022 4:18 AM [facility] ALT/SGPT 20 0 - 55 U/L 05/20/2022 4:18 AM [facility] Alkaline Phosphatase 77 40 - 150 U/L 05/20/2022 4:18 AM [facility] Plasma BLOOD SPECIMEN FROM PATIENT / Unknown 05/20/2022 3:47 AM EDT 05/20/2022 3:53 AM EDT us Luz Kumari MD LAB BLOOD ORDERABLES Final Result [facility] ([id number]) [address] [place] [address] [phone] [facility] [address] [place] [address] * Potassium (04/04/2022 12:16 PM EDT) Potassium 3.9 3.5 - 5.1 mmol/L 04/04/2022 12:35 PM EDT [facility] Plasma specimen (specimen) BLOOD SPECIMEN FROM PATIENT / Unknown 04/04/2022 12:16 PM EDT 04/04/2022 12:21 PM EDT us Abioudn Duran MD LAB BLOOD ORDERABLES Final R esult [facility] ([id number]) [address] [place] [address] [facility] [address] [place] [address] * MRI Brain Wo & W Con (04/03/2022 3:37 PM EDT) Anatomical Region Laterality Modality Head [facility] Magnetic [facility] onance Imaging 04/03/2022 4:11 PM EDT Narrative 04/03/2022 4:25 PM EDT REVIEWING YOUR TEST RESULTS IN [facility] IS NOT A SUBSTITUTE FOR DISCUSSING THOSE RESULTS WITH YOUR HEALTH CARE PROVIDER. PLEASE CONTACT YOUR PROVIDER VIA [facility] TO DISCUSS ANY QUESTIONS OR CONCERNS YOU MAY HAVE REGARDING THESE TEST RESULTS. RADIOLOGY REPORT FACILITY: [facility] UNIT/AGE/GENDER: J.ICU IN AGE:67 Y SEX:M PATIENT NAME/: VITALY CASILLAS 1955 UNIT NUMBER: [id number] ACCESSION NUMBER: [id number] MRI OF THE BRAIN WITH AND WITHOUT [...] - 04/03/2022 REVIEWING YOUR TEST RESULTS IN [facility] IS NOT A SUBSTITUTE FORDISCUSSING THOSE RESULTS WITH YOUR HEALTH CARE PROVIDER. PLEASE CONTACT YOUR PROVIDER VIA [facility] TO DISCUSS ANY QUESTIONS ORCONCERNS YOU MAY HAVE REGARDING THESE TEST RESULTS. RADIOLOGY REPORT FACILITY: [facility] UNIT/AGE/GENDER: Tracy.ICU IN AGE:67 Y SEX:M PATIENT NAME/: VITALY CASILLAS 1955 UNIT NUMBER: [id number] ACCESSION NUMBER: [id number] MRI OF THE BRAIN WITH AND WITHOUT [...] demonstrate mild symmetric volume loss. No abnormal [id number] identified within the suggest mesial temporal sclerosis. [...] 1624 1611 1611 us Lissette Flood DO [facility] MRI ORDERABLES Final Result * Procalcitonin (04/02/2022 10:08 AM EDT) Procalcitonin 0.13 0.1 - 0.5 ng/mL 04/02/2022 10:56 AM EDT [facility] Plasma BLOOD SPECIMEN FROM PATIENT / Unknown 04/02/2022 10:08 AM EDT 04/02/2022 10:13 AM EDT David Garcia MD LAB BLOOD ORDERABLES Final Resu lt [facility] ([id number]) [address] [place] [address] [facility] [address] [place] [address] * (ABNORMAL) Culture, Sputum/Gram Stain (04/02/2022 9:57 AM EDT) Gram Stain Few Squamous Epithelial Cells 04/02/2022 10:45 AM EDT [facility] Gram Stain Many WBC's 04/02/2022 10:45 AM EDT [facility] Gram Stain Many Gram Positive Cocci in Pairs and Chains and Clusters 04/02/2022 10:45 AM EDT [facility] Gram Stain Few Gram Negative Bacillus 04/02/2022 10:45 AM EDT [facility] Gram Stain Many Gram Negative Diplococci 04/02/2022 10:45 AM EDT [facility] Culture Methicillin resistant Staphylococcus aureus [...] ORDERABL ES Final Result Performing Organization Address City/[facility]/ZIP Co de Phone Number [facility] [address] [place] [address] [facility] [address] [place] [address] [facility] [address] [place] [address] * (ABNORMAL) Hemoglobin A1C (04/02/2022 4:22 AM [...] DO LAB BLOOD ORDERABLES Final R esult [facility] [address] [place] [address] [facility] [address] [place] [address] * CT Head Wo Contrast (04/01/2022 6:38 PM EDT) Anatomical Region Laterality Modality Head Computed Tomogra phy 04/01/2022 6:51 PM EDT Narrative 04/01/2022 6:53 PM EDT REVIEWING YOUR TEST RESULTS IN [facility] IS NOT A SUBSTITUTE FOR DISCUSSING THOSE RESULTS WITH YOUR HEALTH CARE PROVIDER. PLEASE CONTACT YOUR PROVIDER [facility]IA [employer] [facility] TO DISCUSS ANY QUESTIONS OR CONCERNS YOU MAY HAVE REGARDING THESE TEST RESULTS. RADIOLOGY REPORT FACILITY: [facility] UNIT/AGE/GENDER: J.ICU IN AGE:67 Y SEX:M PATIENT NAME/: VITALY CASILLAS 1955 UNIT NUMBER: [id number] ACCESSION NUMBER: [id number] DATE: 04/01/2022 HISTORY: Seizure, new-onset, no history [...] - 04/01/2022 REVIEWING YOUR TEST RESULTS IN [facility] IS NOT A SUBSTITUTE FORDISCUSSING THOSE RESULTS WITH YOUR HEALTH CARE PROVIDER. PLEASE CONTACT YOUR PROVIDER VIA [employer] TO DISCUSS ANY QUESTIONS ORCONCERNS YOU MAY HAVE REGARDING THESE TEST RESULTS. RADIOLOGY REPORT FACILITY: [facility] UNIT/AGE/GENDER: J.ICU IN AGE:67 Y SEX:M PATIENT NAME/: VITALY CASILLAS 1955 UNIT NUMBER: [id number] ACCESSION NUMBER: [id number] DATE: 04/01/2022 HISTORY: Seizure, new-onset, no history [...] Images and Report reviewed and interpreted by: Mgaan Alcaraz M.D. <PS><Electronically signed by: Magan Alcaraz M.D.> 04/01/20221851 1850 1850 Lissette Perry Moedaryl DO G CT ORDERABLES Final Result * XR Abdomen Ap Only (04/01/2022 4:45 PM EDT) Anatomical Region Laterality Modality Abdomen [facility] Radiographic Imaging 04/01/2022 5:19 PM EDT Narrative 04/01/2022 5:23 PM EDT REVIEWING YOUR TEST RESULTS IN [facility] IS NOT A SUBSTITUTE FOR DISCUSSING THOSE RESULTS WITH YOUR HEALTH CARE PROVIDER. PLEASE CONTACT YOUR PROVIDER VIA [facility] TO DISCUSS ANY QUESTIONS OR CONCERNS YOU MAY HAVE REGARDING THESE TEST RESULTS. RADIOLOGY REPORT FACILITY: [facility] UNIT/AGE/GENDER: J.ICU IN AGE:67 Y SEX:M PATIENT NAME/: VITALY CASILLAS 1955 UNIT NUMBER: [id number] ACCESSION NUMBER: [id number] EXAM: XR CHEST 1 VW, XR ABDOMEN [...] - 04/01/2022 REVIEWING YOUR TEST RESULTS IN [facility] IS NOT A SUBSTITUTE FORDISCUSSING THOSE RESULTS WITH YOUR HEALTH CARE PROVIDER. PLEASE CONTACT YOUR PROVIDER [employer]IA [employer] TO DISCUSS ANY QUESTIONS ORCONCERNS YOU MAY HAVE REGARDING THESE TEST RESULTS. RADIOLOGY REPORT FACILITY: [facility] UNIT/AGE/GENDER: Tracy.ICU IN AGE:67 Y SEX:M PATIENT NAME/: VITALY CASILLAS 1955 UNIT NUMBER: [id number] ACCESSION NUMBER: [id number] EXAM: XR CHEST 1 VW, XR ABDOMEN [...] Acidosis 05/20/2022 Other dysphagia 05/20/2022 Care Teams Spline Rolling Machine Job Setter Relationship Specialty Start Date End Date John Paul Orellana MD [address] [place] [address] PCP - General Internal Medicine 04/03/22
--- OUTSIDE RECORDS SUMMARY | 2025-05-07 13:07 | XMS_ITS | Encounter Summary ---
Author Organization Healthcare Address [address] [place] [address] Care Team Providers Care Firepot Operator And Tender Name Role Phone John Paul Orellana MD Primary Care Provider [phone] Encounter Details Date Type Department Care Team (Late st Contact Info) Description 04/21/2022 Lab Requisition [facility] [address] [place] [address] Delvis Dominguez MD [address] [facility] 7th [facility] [address] [place] [address] Encounter for general adult medical [...] drink first t clarita in the morning (EYE-FLEET COORDINATOR) to steady your nerves or to get [...] GENERAL ORDERABLES Final Result [facility] [address] [place] [address] documented in this encounter Visit Diagnoses Diagnosis Encounter for general adult medical examination without abnormal findings documented in this encounter Additional Health Concerns Infection Onset Date Last Indicated Resolved Time MRSA 04/20/2022 05/28/2022 documented as of this encounter Care Teams Firepot Operator And Tender Relationship Specialty Start Date End Date John Paul Orellana MD [address] [place] [address] PCP - General 01/24/21 documented as of this encounter
--- OUTSIDE RECORDS SUMMARY | 2025-05-07 13:07 | XMS_ITS | Clinical Summary ---
Author Organization [facility] Address [address] [place] [address] Care Team Providers Care It Infrastructure Engineer Name Role Phone John Paul Orellana MD Primary Care Provider [phone] Allergies Active Allergy Reactions Criticality Noted Date [...] (04/20/2022): Added automatically from request for surgery [id number] Resolved Problems Problem Noted Date Diagnosed Date [...] drink first t clarita in the morning (EYE-VISITOR SERVICES REPRESENTATIVE) to steady your nerves or to get [...] A1C 10/18/202204/2022, 10/28/2021, 07/12/2020, Additional history exists [id number] Vaccine (3 - season) 2024 12/17/2020, 11/20/2020 [...] ORDERABLES Final R esult [facility] [address] [place] [address] * (ABNORMAL) Hemoglobin A1c (04/20/2022 11:09 AM [...] Adults <6.0% Children and Adolescents <7.5% Source: [place] [employer]. Standards of medical care in diabetes,2017. Diabetes Care.2017:40 (suppl 1):S1-S135. HbA1c assay performed by an ion-exchange chromatography method that is certified traceable to the DCCT. Crys Herrera CHUCKING LATHE OPERATOR LAB BLOOD ORDERABLES Final Result [facility] [address] [place] [address] from Last 3 Months or Most Recently Relevant to Health Maintenance Additional Health Concerns Infection Onset Date Last Indicated MRSA 04/20/2022 05/28/2022 Insurance [employer] Advance Directives Documents on File Type Date Recorded Patient Sales Service Coordinator Expl anation Advance Directives and Livin g Will 04/20/2022 2:05 PM Care Teams It Infrastructure Engineer Relationship Specialty Start Date End Date John Paul Orellana MD [address] [place] [address] PCP - General 01/24/21
--- OUTSIDE RECORDS SUMMARY | 2025-05-07 13:07 | XMS_ITS | Clinical Summary ---
Author Organization 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 07/07/2023 Pressure injury of buttock, stage 1 06/13/2023 Pressure ulcers of skin of multiple topographic sites 06/13/2023 Overview (06/17/2023): Added automatically from request for surgery [id number] Cellulitis of left foot 06/13/2023 Overview (06/17/2023): Added automatically from request for surgery [id number] Acute encephalopathy 06/21/2022 Adrenal insufficiency 06/21/2022 Dysphagia [...] (05/02/2019): Added automatically from request for surgery [id number] Complicated migraines H/O traumatic brain injury Resolved Problems Problem Noted Date Diagnosed Date Resolved Date Confusion 05/11/2022 05/14/2022 Somnolence 05/09/2022 05/14/2022 Cellulitis 04/28/2019 12/01/2021 Cervical disc herniation 04/28/201901/2020 Overview (05/03/2019): Added automatically from request for surgery [id number] Immunizations Immunization Administration Dates Next Due COVID-19 [...] drink = 0.6 oz pur e alcohol) [facility] Utilities Answer Date Recorded In the past [...] Brief Depression Severity Measure Score 2 08/09/2023 [facility] - Occupational Stress [...] GED or equivalent No 09/01/2024 Preferred Language South Korean 09/01/2024 PHQ-2 Answer Date Recorded Patient Health [...] 05/28/2022, 022 Medical Devices Implanted Type Area Pharmacy Services Director Device Identifier Shelf Expiration Date Model / Serial / Lot Fltr Jug Vena Cava Francine Del - [id number] Implanted:Qty: 1 on 05/02/2019 by Pedro Zapien MD at [facility] Implant BARD PERIPHERAL VASCULAR [id number] / / [id number] Description:MRI safety: Non- clinical testing demonstrated that the Francine Vena Cava Filter is MR Conditional. A patient with this implant can be scanned safely immediately after placement under the following conditions: Static magnetic field of 3-Jessica or 1.5-Jessica Spatial gradient magnetic field of 720-Gauss/cm or less Maximum MR system reported cyhoa-pqcc-bydcyoxj specific absorption rate (CHRISTEL) of 2-W/kg in the normal operating mode Hemost Abs Surgifoam Sz100 8x12 10mm - [id number] Implanted:Qty: 1 on 07/17/2020 by Tyree Tan MD at [facility] Implant Spine Cervical [employer] J AND J 1974 / / Kt Seal Hemos Abs Floseal Matrx Fast/Prep 10ml - [id number] Implanted:Qty: 1 on 07/17/2020 by Tyree Tan MD at [facility] Implant Spine Cervical [facility] 10/08/2021 [id number] / / [id number] Putty Dbm [place] 6cc - [id number] - [id number] Implanted:Qty: 1 on 07/17/2020 by Tyree Tan MD at [facility] Implant Spine Cervical [employer] 06/05/2022 [id number] / [id number] / Spacr Lrd Spine Endoskeleton Nanolock Tc 6deg [id number] Sm - [id number] Implanted:Qty: 1 on 07/17/2020 by Tyree Tan MD at [facility] Implant Spine Cervical [employer] 09/24/2024 [id number] / / [id number] Coil Marlin Emb Fill Complex Sft 2mm 2cm - [id number] Implanted:Qty: 1 on 09/07/2024 by Jared Marcano MD at [facility] Implant [facility] 04/05/2031 [id number] / / [id number] Coil Marlin Emb Fill Complex Jsft 15cm - [id number] Implanted:Qty: 1 on 09/07/2024 by Jared Marcano MD at [facility] Implant [facility] 03/21/2030 [id number] / / [id number] Coil Marlin Emb Fill Complex Jsft 8mm 60cm - [id number] Implanted:Qty: 1 on 09/07/2024 by Jared Marcano MD at [facility] Implant PENUMBRA 07/19/2030 [id number] / / [id number] Procedures Procedure Name Priority Date/Time Associated Diagnosis Comments HEMOGLOBIN A1C Routine 09/02/2024 3:35 AM EST LIPID PANEL Routine 08/01/2023 4:42 AM EST from Last 3 Months or Most Recently Relevant to Health Maintenance Results * (ABNORMAL) Hemoglobin A1c (09/02/2024 3:35 AM EST) Pathologist [facility] Hemoglobin A1C 7.60(H) 4.80 - 5.60 % 09/02/2024 4:54 AM EST [facility] Blood Venipuncture / Unknown 09/02/2024 3:35 AM EST 09/02/2024 4:29 AM EST Narrative [facility] - 09/02/2024 4:54 AM EST Hemoglobin A1C Ranges: Increased Risk for Diabetes 5.7% to 6.4% Diabetes >= 6.5% Diabetic Goal < 7.0% Alondra Lanza MD LAB BLOOD ORDERABLES Fi nal Result [facility]
[address] [place] [address], * (ABNORMAL) Lipid Panel (08/01/2023 4:42 AM EST) Total Cholesterol 148 0 - 200 mg/dL 08/01/2023 5:39 AM EST [facility] Triglycerides 115 0 - 150 mg/dL 08/01/2023 5:39 AM EST [facility] HDL Cholesterol 37(L) 40 - 60 mg/dL 08/01/2023 5:39 AM EST [facility] LDL Cholesterol 90 0 - 100 mg/dL 08/01/2023 5:39 AM EST [facility] VLDL Cholesterol 21 5 - 40 mg/dL 08/01/2023 5:39 AM EST [facility] LDL/HDL Ratio 2.38 08/01/2023 5:39 AM EST [facility] Blood Venipuncture / Unknown 08/01/2023 4:42 AM EST 08/01/2023 4:57 AM EST [facility] - 08/01/2023 5:39 AM EST Cholesterol [...] Very High >189 mg/dL us January Jasbir HARDWOOD FLOOR SANDER LAB BLOOD ORDERABLES Fi nal Result [facility]
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
--- NOTE | 2025-05-07 13:18 | CT_ITS ---
PROCEDURE INFORMATION: Exam: CT Abdomen And Pelvis With Contrast Exam date and time: 05/07/2025 2:20 PM Age: 70 years old Clinical indication: Other: Flank pain; Additional info: Flank pain; UTI TECHNIQUE: Imaging protocol: Computed tomography of the abdomen and pelvis with contrast. Total images: 366 Radiation optimization: All CT scans at this facility use at least one of these dose optimization techniques: automated exposure control; mA and/or kV adjustment per patient size (includes targeted exams where dose is matched to clinical indication); or iterative reconstruction. Contrast material: ISOVUE; Contrast volume: 75 ml; Contrast route: IV; COMPARISON: CT ABDOMEN PELVIS WO CON 04/27/2024 8:50 PM FINDINGS: Lungs: Lung bases are clear. Liver: Normal. No mass. Gallbladder and biliary ducts: Normal. No calcified stones. No ductal dilation. Pancreas: Normal. No ductal dilation. Spleen: Normal. No splenomegaly. Adrenal glands: Normal. No mass. Kidneys and ureters: Nonspecific low-density foci of the kidneys statistically favor benign cysts, no follow-up imaging is recommended, as large as 1.2 cm on the right. Scarring noted along the lateral aspect of the left kidney. Mild perinephric fat stranding bilaterally. Stomach and bowel: Large amount of stool is present throughout the colon. Appendix: No evidence of appendicitis. Intraperitoneal space: Normal. No significant fluid collection. Vasculature: Moderate atherosclerotic disease. An inferior vena cava filter lies in appropriate position. Lymph nodes: No mesenteric or retroperitoneal lymphadenopathy. Urinary bladder: There is moderate bladder wall thickening consistent with incomplete distension, chronic outflow obstruction, or cystitis. De Los Santos catheter and air noted within the bladder. 5 mm calcification noted along the anterior aspect of the bladder. Reproductive: Unremarkable as visualized. Bones/joints: Compression deformities of T11 and T12 are noted. Moderate degenerative changes of the lumbar spine and both hips. Soft tissues: Bilateral fat filled inguinal hernias. Fatty density noted along the left iliac crest. IMPRESSION: 1. 5 mm calcification noted along the anterior aspect of the bladder. 2. Nonspecific low-density foci of the kidneys statistically favor benign cysts, no follow-up imaging is recommended, as large as 1.2 cm on the right. 3. No mesenteric or retroperitoneal lymphadenopathy. 4. Large amount of stool is present throughout the colon. 5. Bilateral fat filled inguinal hernias. COMMENTS: 1. For patients with an IVC filter, recommend assessment for a management plan for the patient's IVC filter. If there is no established management plan, recommend referral to an interventional clinician on a nonemergent basis for evaluation. 2. Consistent with the [employer]'s Incidental Findings Committee white paper (J Am Miguelangel Radiol 2018): Any incidental renal lesion less than 1 cm or classified as too small to characterize, or any incidental cystic renal lesion characterized as simple-appearing, is likely benign. No follow-up imaging is recommended for these lesions per consensus recommendations based on imaging criteria.
--- NOTE | 2025-05-07 13:28 | ED_ITS ---
<Statement entered by Alec Walker MD - 05/07/25 20:09> I was consulted by the VARUN, and we discussed the complexity of the problems being addressed. I approve the treatment and management plan for this patient's care in the emergency department, thus performing a substantive portion of the medical decision making. Alec Walker MD Discharge Plan Disposition Patient Disposition: Home, Self-Care Prescriptions Prescriptions: No Action cefdinir 300 mg capsule PO Patient Comments: take 1 cap(s) orally every 12 hours for 14 days terbinafine HCl 250 mg tablet PO Patient Comments: take 1 tab(s) orally once a day 14 days folic acid 400 mcg tablet 0.4 mg PO DAILY doxycycline hyclate 100 mg capsule 100 mg PO BID 10 Days Qty: 20 0RF linezolid 600 mg tablet 600 mg PO BID 10 Days Qty: 20 0RF amiodarone 400 mg tablet See Rx Instructions .ROUTE .COMPLEX Qty: 180 3RF Dose Instruction: TAKE ONE TABLET BY MOUTH TWICE DAILY FOR ONE MONTH Rx Instructions: TAKE ONE TABLET BY MOUTH TWICE DAILY FOR ONE MONTH levofloxacin 750 mg tablet 750 mg PO DAILY 14 Days Qty: 14 0RF metoprolol succinate 25 mg Tablet Extended Release 24 Hr 25 mg PO DAILY Qty: 30 0RF clopidogrel [Plavix] 75 mg tablet 75 mg PO DAILY Qty: 30 0RF metoclopramide HCl 5 mg tablet 5 mg PO BIDWMEAL Patient Comments: take 1 tab(s) orally 2 times a day before meal 30 days gabapentin 100 mg Capsule 200 mg PO TID 30 Days Qty: 180 0RF Jardiance 10 mg Tablet 10 mg PO DAILY 30 Days Qty: 30 0RF Entresto 24-26 mg Tablet 1 tab PO BID 30 Days Qty: 60 0RF spironolactone 25 mg Tablet 25 mg PO DAILY 30 Days Qty: 30 0RF insulin glargine [Lantus Solostar U-100 Insulin] 100 unit/mL (3 mL) insulin pen 35 unit SQ HS 30 Days Qty: 0 0RF ondansetron HCl 4 mg tablet 4 mg PO Q8H PRN (Reason: nausea and vomiting) 4 Days Qty: 12 0RF furosemide 40 mg tablet 40 mg PO DAILY Patient Comments: TAKE ONE TABLET BY MOUTH ONCE DAILY aspirin 81 mg tablet,delayed release (DR/EC) 81 mg PO DAILY lamotrigine 100 mg tablet 100 mg PO BID Patient Comments: TAKE ONE TABLET BY MOUTH TWICE DAILY lamotrigine 150 mg tablet 150 mg PO HS Patient Comments: TAKE ONE TABLET BY MOUTH AT BEDTIME Rx Instructions: 150mg by mouth nightly with the 100mg tablet for seizures pantoprazole 40 mg Tablet,Delayed Release (Dr/Ec) 40 mg PO DAILY atorvastatin 40 mg tablet 40 mg PO HS Patient Comments: TAKE ONE TABLET BY MOUTH ONCE DAILY sennosides-docusate sodium [Stimulant Laxative Plus] 8.6-50 mg tablet 1 tab PO BID Patient Comments: TAKE ONE TABLET BY MOUTH TWICE DAILY baclofen 10 mg tablet 10 mg PO BIDP PRN (Reason: Muscle Spasms) Patient Comments: take 1 tab(s) orally 2 times a day as needed for muscle spasms 30 days Referrals Follow up/Referrals: Gustavo Leggett MD [Staff Physician, Internal Medicine] - See instructions Activity Restrictions/Add. Instructions Additional Instructions/Restrictions: Thank you for allowing us to care for you. You have a urinary tract infection that will require IV antibiotics. You had a midline IV placed. You will need antibiotics every 24 hours. In 5 days you should have labs repeated (CBC and Tobramycin level) by your primary care doctor. You should return to the emergency department if you develop fever or have any vomiting. Clinical Impressions Clinical Impression: Urinary tract infection Instructions Patient Instructions: DI for Urinary Tract Infection (UTI), DI for Urinary Tract Infection in Children Print Language Print Language: Spanish Discharge ED Provider: Alec Walker Adult HPI General Chief complaint: Urogenital-Male Stated complaint: known UTI-pseudomonas Time Seen by Provider: 05/07/25 13:04 Mode of Arrival: EMS Source of Information: Patient and EMS Description of Symptoms (Recalled from ER Triage Doc. by RN): Patient presents to ED from home, EMS reports patient's home health nurse called due to ongoing UTI. Patient states he has a chronic Ambrose in place due to sacral wounds, reports ambrose was changed last week. Patient also notes ongoing infection to the left leg, right AKA noted. History of Present Illness HPI narrative: This is a 70-year-old male with a history of type 2 diabetes, CAD, peripheral vascular disease, urinary tract infections who presents to the emergency department after being sent by primary for IV antibiotics. Patient reports an ongoing urinary tract infection for the last 2 and half months. He reports multiple oral antibiotic treatments. Symptoms would improve, then returned following treatments. Last antibiotic treatment was 5 days ago. Patient unable to recall which antibiotic he was prescribed. He reports being sent in due to a pseudomonal urinary tract infection. He has not had fever or chills. He has had nausea without vomiting. Patient has an indwelling catheter that has been present for over a year. He also reports recurrent sacral wounds and left lower extremity cellulitis for which a home health nurse this has been changing his dressings. Last dressings were today prior to arrival. Please note that the above description of symptoms, and this electronic medical record under categorization of was recalled from ER triage doctor by RN reflective of an initial nursing assessment, however, is not reflective of my full history and physical exam I was personally taken and clarified. Consequentially, this preceding description of symptoms which may include the patient's categorize chief complaint in the EMR, do not reflect my personal clinical impression, and the ultimate description of history of present illness send patient stated complaints should be deferred to the section of the note. Unless stated otherwise were congruent with the section of the note, additional signs, symptoms, or incongruence should be interpreted as an accurate with my clinical impression. Related Data Home Medications ?Medication ?Instructions ?Recorded ?Confirmed aspirin 81 mg tablet,delayed 81 mg PO DAILY 04/20/23 0 04/16/25 release furosemide 40 mg tablet 40 mg PO DAILY Fluid 3 04/16/25 lamotrigine 100 mg tablet 100 mg PO BID 04/20/2304/16 lamotrigine 150 mg tablet 150 mg PO HS 04/21/23 atorvastatin 40 mg tablet 40 mg PO HS 03/03/24 5 Held on 04/29/24. 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 given patient condition and prognosis pantoprazole 40 mg tablet,delayed 40 mg PO DAILY 03/0304/16/25 release metoclopramide HCl 5 mg tablet 5 mg PO BIDWMEAL 04/16/25 baclofen 10 mg tablet 10 mg PO BIDP PRN Muscle Spa sms 04/22/24 04/16/25 sennosides 8.6 mg-docusate sodium 1 tab PO BID 4 04/16/25 50 mg tablet (Stimulant Laxative Plus) cefdinir 300 mg capsule mg PO 06/05/24 04/16/25 terbinafine HCl 250 mg tablet mg PO 06/05/24 04/16/25 folic acid 400 mcg tablet 0.4 mg PO DAILY 06/20/2401/05 Previous Rx's ?Medication ?Instructions ?Recorded clopidogrel 75 mg tablet (Plavix) 75 mg PO DAILY #30 t abs 06/08/23 metoprolol succinate 25 mg 25 mg PO DAILY #30 tabs tablet,extended release 24 hr gabapentin 100 mg capsule 200 mg (2 x 100 mg) PO TID 3 0 days 04/01/24 #180 caps empagliflozin 10 mg tablet 10 mg PO DAILY 30 days #30 tabs 04/29/24 (Jardiance) insulin glargine 100 unit/mL (3 35 unit (0.35 mL) SQ H S 30 days #0 04/29/24 mL) subcutaneous pen (Lantus mL Solostar U-100 Insulin) sacubitril 24 mg-valsartan 26 mg 1 tab PO BID 30 days #60 tabs 04/29/24 tablet (Entresto) spironolactone 25 mg tablet 25 mg PO DAILY 30 days #30 tabs 04/29/24 ondansetron HCl 4 mg tablet 4 mg PO Q8H PRN nausea and 05/13/24 vomiting 4 days #12 tabs amiodarone 400 mg tablet See Rx Instructions .Route 1 .COMPLEX #180 tabs doxycycline hyclate 100 mg capsule 100 mg PO BID cellu litis 10 days 07/17/24 #20 caps linezolid 600 mg tablet 600 mg PO BID 10 days #20 ta bs 07/17/24 levofloxacin 750 mg tablet 750 mg PO DAILY 14 days #14 tabs 08/13/24 Allergies Allergy/AdvReac Type Severity Reaction Status Date / Time hydrocodone (From LORTAB) Allergy Unknown NA-NAUSEA/V Verified 04/16/25 11:13 OMITING codeine Allergy Verified 04/16/25 11:13 levetiracetam (From Keppra) Allergy Verified 04/16/25 11:13 tramadol AdvReac Unknown Verified 04/16/25 11:13 allergy reaction PFSH PFS Disclaimer: The information contained in this section may have been updated after the patient was seen, as this information can be updated by other users. Medical History Seizure CAD in algaaciq artery Acute febrile illness Atrial flutter Bilateral cellulitis of lower leg Cellulitis Diabetes mellitus Dystrophia unguium Fatigue Fever Infestation by fly larvae Lymphedema of both lower extremities Malaise Obesity with body mass index (BMI) of 30.0 to 39.9 Peripheral vascular disease Renal insufficiency Spinal stenosis of cervical region Spinal stenosis of lumbar region Systemic inflammatory response syndrome (SIRS) Ulcers of both lower extremities Uncontrolled diabetes mellitus History of left heart catheterization (LHC) Surgical History History of amputation H/O Spinal surgery Family History Mother Breast cancer Family history of myocardial infarction Social History Smoking Status: Former smoker tobacco type: cigarettes pack-years: 33 alcohol intake: never substance use type: marijuana current occupational status: retired and disabled Travel in the last 8 weeks?: None household members: family caffeine: No Have you lived/traveled outside [place] in past 30 days?: No Contact w/someone who lives/traveled outside [place] past 30 days?: No Exposure to someone with infectious disease in past 14 days?: No Do you have a fever (greater than 100.4 F or 38 C)?: No Have you tested positive for COVID-19?: No Exposed to someone with COVID-19 in past 14 days?: No Do you have a sore throat?: No Do you have a cough?: No Do you have any weakness?: No Do you have any diarrhea?: No Are you experiencing any unusual bleeding?: No Do you have any muscle aches/pain?: No Do you have any abdominal pain?: No Are you experiencing loss of taste or smell?: No Other Medical History Have you received the Flu Vaccine for this season: No Have you received the Pneumonia Vaccine: No ROS Obtained: Yes Systems reviewed as appropriate & no additional complaints except as documented Physical Exam General General appearance: alert and in no apparent distress Head Head exam: atraumatic and normocephalic Neck Neck exam: Present full ROM Respiratory Respiratory exam: Present normal lung sounds bilaterally; Absent respiratory distress Cardiovascular Cardiovascular exam: Present regular rate and normal rhythm Abdominal Exam Abdominal exam: Present soft; Absent distention or tenderness exam: Present other (ambrose catheter in place) Extremities Exam Extremities exam: Present other (Right AKA present; left lower extremity wound dressing in place) Neurological Exam Neurological exam: Present alert and oriented X3 Medical Decision Making Medical Records Screening: Per USPSTF and CDC recommendations, given the prevalence of disease in our region, it is our hospital?s policy to screen for HIV and viral Hepatitis for all patients aged 18 and over and those with ongoing risk factors. Lex Inquiry Pt receiving controlled substance: No Vital Signs: 05/07/25 13:05 05/07/25 13:08 05/07/25 13:30 Temperature 97.8 F Temperature Source Oral Pulse Rate 67 83 Pulse Rate [Left] 89 Respiratory Rate 18 17 17 Blood Pressure 145/70 H Blood Pressure [Right Arm] 146/72 H Blood Pressure Mean 95 Blood Pressure Mean [Right Arm] 96 Blood Pressure Source [Right Arm] Automatic Cuff Blood Pressure Position [Right Arm] Supine 02 Sat by Pulse Oximetry 99 98 99 Oxygen Delivery Method Room Air Room Air Room Air 05/07/25 14:01 05/07/25 14:31 05/07/25 15:00 Temperature Temperature Source Pulse Rate 72 78 76 Pulse Rate [Left] Respiratory Rate 18 Blood Pressure 152/74 H 151/78 H 162/81 H Blood Pressure [Right Arm] Blood Pressure Mean 95 Blood Pressure Mean [Right Arm] Blood Pressure Source [Right Arm] Blood Pressure Position [Right Arm] 02 Sat by Pulse Oximetry 100 100 98 Oxygen Delivery Method Room Air 05/07/25 15:32 05/07/25 16:00 05/07/25 16:30 Temperature Temperature Source Pulse Rate 80 88 84 Pulse Rate [Left] Respiratory Rate 17 19 Blood Pressure 113/64 153/76 H 137/71 Blood Pressure [Right Arm] Blood Pressure Mean 85 100 93 Blood Pressure Mean [Right Arm] Blood Pressure Source [Right Arm] Blood Pressure Position [Right Arm] 02 Sat by Pulse Oximetry 98 99 96 Oxygen Delivery Method Room Air Room Air 05/07/25 17:31 05/07/25 18:00 05/07/25 18:30 Temperature Temperature Source Pulse Rate 84 84 89 Pulse Rate [Left] Respiratory Rate Blood Pressure 129/56 L 146/78 H 144/73 H Blood Pressure [Right Arm] Blood Pressure Mean 83 100 98 Blood Pressure Mean [Right Arm] Blood Pressure Source [Right Arm] Blood Pressure Position [Right Arm] 02 Sat by Pulse Oximetry 96 96 Oxygen Delivery Method 05/07/25 19:31 05/07/25 20:01 05/07/25 20:29 Temperature 98.4 F Temperature Source Pulse Rate 89 83 Pulse Rate [Left] Respiratory Rate 16 16 Blood Pressure 138/74 143/61 H 143/61 H Blood Pressure [Right Arm] Blood Pressure Mean 96 100 Blood Pressure Mean [Right Arm] Blood Pressure Source [Right Arm] Blood Pressure Position [Right Arm] 02 Sat by Pulse Oximetry 98 Oxygen Delivery Method Room Air Lab Data Lab Results 05/07/25 13:07: WBC 9.4, RBC 4.95, Hgb 11.6 L, Hct 38.0 L, MCV 76.8 L, MCH 23.4 L, MCHC 30.5 L, RDW 16.9, Plt Count 299, MPV 10.3, Neut % (Auto) 69.2, Lymph % (Auto) 16.0, [place] % (Auto) 9.6 H, Eos % (Auto) 3.9, Baso % (Auto) 0.7, Neut # (Auto) 6.5, Lymph # (Auto) 1.5, [place] # (Auto) 0.9, Eos # (Auto) 0.4, Baso # (Auto) 0.1, Sodium 140, Potassium 4.3, Chloride 108 H, Carbon Dioxide 21 L, A nion Gap 15.3 H, BUN 25 H, Creatinine 0.80, Estimated Creat Clear 113, Estimated GFR 95, Est GFR ( Amer) 115, Glucose 242 H, Calcium 9.2, Total Bilirubin 0.2, AST 26, ALT 17, Alkaline Phosphatase 161 H, Total Protein 7.9, Albumin 4.0, Globulin 3.9 H, Albumin/Globulin Ratio 1.0 L, Acetone Level None detected 05/07/25 13:51: Urine Color Yellow, Urine Appearance Cloudy, Urine pH 6.0, Ur Specific Capulin 1.020, Urine Protein 2+ A, Urine Glucose (UA) Negative, Urine Ketones Negative, Urine Blood 2+ A, Urine Nitrate Positive A, Urine Bilirubin Negative, Urine Urobilinogen 0.2, Ur Leukocyte Esterase 1+ A, Urine RBC Occasional, Urine WBC 10-20, Ur Squamous Epith Cells 3-5, Urine Bacteria Trace 05/07/25 14:13: VBG pH 7.38, VBG pCO2 32.1 L, VBG pO2 122.1 H, VBG HCO3 18.6 L, VBG Total CO2 19.5 L, VBG O2 Saturation 98.4 H, VBG Base Excess -6.6 L, VBG Lactic Acid 1.4 05/07/25 13:07 05/07/25 13:07 Orders (Tests/Meds): ED MEDICATIONS Discontinued Medications Generic Name Dose Route Start Last Admin Trade Name Freq PRN Reason Stop Dose Admin Tobramycin Sulfate 480 mg/ 112 mls @ 112 mls/hr 05/07/25 16:00 05/07/25 17:46 Sodium Chloride IV 05/07/25 16:59 Infused ONCE ONE Infusion Ibuprofen 800 mg 05/07/25 19:45 05/07/25 19:48 Ibuprofen 800 Mg Tablet PO 05/07/25 19:46 800 mg ONCE ONE Administration Iopamidol 75 ml 05/07/25 14:18 05/07/25 14:19 Iopamidol-370 (76%);100ml Bottle IV 05/07/25 14:19 75 ml ONCE ONE Administration Sodium Chloride 10 ml 05/07/25 14:18 05/07/25 14:19 Sodium Chloride 0.9% 10ml Syr (Rad Only) IV 05/07/25 14:19 10 ml ONCE ONE Administration ORDERS Category Date Time Status CT abdomen pelvis w con Stat Cat Scan 05/07/25 13:18 Completed Chest XR -- portable [XR chest portable] Stat Exams 05/07/25 17:43 Completed Acetone, Serum (Rapid) Stat Lab 05/07/25 13:07 Completed CBC w/Auto Diff [Complete Blood Count Auto Diff] Stat Lab 05/07/25 13:07 Completed CMP [Comprehensive Metabolic Panel] Stat Lab 05/07/25 13:07 Completed Urinalysis and Microscopic Stat Lab 05/07/25 13:51 Completed Blood Culture Stat Micro 05/07/25 13:42 Received Urine Culture(cathed specimen) Stat Micro 05/07/25 Received VBG [Venous Blood Gas] Stat RT 05/07/25 14:13 Completed Medical Decision Narrative: In summary, this is a 70-year-old male presenting to the emergency department today for evaluation after being sent in for pseudomonal urinary tract infection. Patient reports over 2 months of urinary tract infections that have improved with oral antibiotics but never resolved. Patient was sent in for admission for IV antibiotics. He has had nausea. No vomiting or fevers. He does report bilateral flank pain. On exam patient is well-appearing and in no acute distress. He is laying comfortably on hospital stretcher. Respiratory rate and effort are normal and lungs are clear to auscultation bilaterally without adventitious sounds. Normal S1, S2. The abdomen is soft, nondistended, nontender to palpation. There is no CVA tenderness. There is an indwelling Ambrose catheter present. Right AKA. Left wound dressing in place. Sacral wound dressing in place. Differential diagnoses include but are not limited to urinary tract infection, pyelonephritis, perinephric abscess, urosepsis, nephrolithiasis, hydronephrosis, DKA, among others. Laboratory workup ordered including CBC, CMP, blood cultures, urinalysis and culture. CBC without leukocytosis. H&H stable. CMP with glucose of 242 and anion gap of 15.3. We will obtain VBG and acetone. Will start IV antibiotics based on patient's last culture and susceptibilities. Patient grew Pseudomonas on most recent urinalysis that was obtained ? . Was susceptible to meropenem, Zosyn, tobramycin. Based on chart review, previous cultures were susceptible to Zosyn as well. I called the patient's pharmacy who reports last antibiotic being cefdinir from 04/19/25-04/29/25. I contacted our hospitalist service to determine which IV antibiotic they prefer. We are awaiting their recommendations. CT imaging without evidence of nephrolithiasis, hydronephrosis, abscess. Hospitalist team will evaluate the patient and determine if patient would be appropriate for midline and outpatient IV antibiotics given he is otherwise well, tolerating oral intake with no fever or CVA tenderness. Hospital medicine team discussed patient with pharmacy who recommends Tobramycin 480mg every 24 hours. Pharmacy team will order and we will start antibiotic therapy in the ED. Case management team evaluated the patient and dye house helper was called to place midline. Follow up labs and Tobraycin level will be ordered and followed by patient's PCP and case management will help arrange. Patient was placed in ED observation status at 1608 pending midline placement and IV antibiotic dose to treat urinary tract infection. The goal is to prelude an unnecessary admission and to establish IV access for appropriate management in the outpatient setting. Midline was placed without complication. First dose of IV antibiotic is in process. 191 Patient tolerated antibiotics without complication. He is appropriate for discharge at this time. Return precautions were discussed and understood. He will return if there is any vomiting, fever, or flank pain. Patient will have repeat labs in 5 days with his PCP. Will arrange EMS transportation home. Critical Care Critical Care Time Critical Care Time: No
[2025-05-07 13:29] LABS: Hematocrit 38.0 % (42.0-52.0); Hemoglobin 11.6 g/dL (14.1-18.0); Immature Granulocytes % 0.6 %; Mean Corpuscular HGB Conc 30.5 g/dL (31.8-35.4); Mean Corpuscular Hemoglobin 23.4 pg (27.0-31.2); Mean Corpuscular Volume 76.8 fl (80-94); Nucleated Red Blood Cells % 0 %; Platelet Count 299 K/mm3 (142-424); Red Blood Count 4.95 M/mm3 (4.60-6.20); Red Cell Distribution Width-SD 46.5 fL; White Blood Count 9.4 K/mm3 (4.8-10.8)
[2025-05-07 13:31] LABS: Albumin Level 4.0 g/dl (3.5-5.0); Chloride 108 mmol/L (98-107); Sodium 140 mmol/L (136-145)
[2025-05-07 13:32] LABS: Potassium 4.3 mmoL/L (3.5-5.1)
[2025-05-07 13:34] LABS: Alanine Aminotransferase 17 U/L (12-78); Anion Gap 15.3 mEq/L (5-15); Aspartate Amino Transferase 26 U/L (17-59); Blood Urea Nitrogen 25 mg/dl (9-20); Carbon Dioxide 21 mmol/L (22.0-30.0); Creatinine Clearance Estimated 113 mL/min (50-200); Creatinine,Serum 0.80 mg/dl (0.66-1.25); Estimated Glomerular Filt Rate 95 ml/min (>60); GFR (African American) 115 ML/MIN (>60)
[2025-05-07 13:35] LABS: Albumin/Globulin Ratio 1.0 (1.1-1.8); Alkaline Phosphatase 161 U/L (38-126); Bilirubin,Total 0.2 mg/dl (0.2-1.3); Calcium 9.2 mg/dl (8.4-10.2); Globulin 3.9 g/dL (1.3-3.2); Glucose 242 mg/dl (74-100); Total Protein,Serum 7.9 g/dl (6.3-8.2)
[2025-05-07 13:55] LABS: Microscopic, Urine URINE MICROSCOPIC (MICROSCOPIC)
[2025-05-07 13:58] LABS: Bilirubin,Urine Negative (Negative); Color,Urine YELLOW (Yellow); Glucose,Urine (UA) Negative (Negative); Ketones,Urine Negative (Negative); Leukocyte Esterase,Urine 1+ (Negative); PH,Urine 6.0 (5.0-8.5); Protein,Urine 2+ (Negative); Specific Gravity, Urine 1.020 (1.005-1.030); Urobilinogen,Urine 0.2 EU/dl (0.2)
--- NOTE | 2025-05-07 14:06 | PC.NURSE ---
Spoke with Debbie in the lab to inquire a time frame for the pts chemistry results. She states it should be ten minutes.
[2025-05-07 14:19] LABS: Lactate Venous 1.4 mmol/L (0.4-2.0); VBG HCO3 18.6 mmol/L (23-30); VBG PCO2 32.1 mmol/L (35-51); VBG PH 7.38 mmol/L (7.31-7.41); VBG PO2 122.1 mmol/L (28-40)
[2025-05-07] MEDS: IOPAMIDOL-370 (76%);100ML BOTTLE 75 ML IV (14:19)
[2025-05-07] MEDS: SODIUM CHLORIDE 0.9% 10ML SYR (RAD ONLY) 10 ML IV (14:19)
[2025-05-07 14:31] LABS: Acetone, Serum (Rapid) None Detected (None Detect)
--- NOTE | 2025-05-07 14:38 | PC.NURSE ---
I rounded on the pt. He is resting with his eyes closed. call goetz in reach.
--- NOTE | 2025-05-07 14:42 | PC.NURSE ---
Daniela in resp. notified that there is a green top in lab for a VBG
[2025-05-07 15:03] LABS: Bacteria,Urine Trace /lpf; RBC,Urine Occasional #/hpf (0-3)
--- NOTE | 2025-05-07 15:35 | EXP.PHA.CONS ---
Pharmacy Consult Date: 05/07/25 Time: 15:35 Referring provider: DR. DE LA O Reason for Consult:: TOBRAMYCIN DOSING Allergies Allergy/AdvReac Type Severity Reaction Status Date / Time hydrocodone (From LORTAB) Allergy Unknown NA-NAUSEA/V Verified 04/16/25 11:13 OMITING codeine Allergy Verified 04/16/25 11:13 levetiracetam (From Keppra) Allergy Verified 04/16/25 11:13 tramadol AdvReac Unknown Verified 04/16/25 11:13 allergy reaction Home Medications ?Medication ?Instructions ?Recorded ?Confirmed ?Type aspirin 81 mg tablet,delayed 81 mg PO DAILY 04/20/23 04/16/25 History release furosemide 40 mg tablet 40 mg PO DAILY Fluid 04/20/23 04/16/25 History lamotrigine 100 mg tablet 100 mg PO BID 04/20/23 04/16/25 History lamotrigine 150 mg tablet 150 mg PO HS 04/21/23 04/16/25 History clopidogrel 75 mg tablet (Plavix) 75 mg PO DAILY #30 tabs 06/08/23 04/16/25 Rx metoprolol succinate 25 mg 25 mg PO DAILY #30 tabs 06/08/23 04/16/25 Rx tablet,extended release 24 hr atorvastatin 40 mg tablet 40 mg PO HS 03/03/24 04/16/25 History Held on 04/29/24. Instructions: consider stopping due to limited care home benefit given patient condition and prognosis pantoprazole 40 mg tablet,delayed 40 mg PO DAILY 03/03/24 04/16/25 History release metoclopramide HCl 5 mg tablet 5 mg PO BIDWMEAL 03/27/24 04/16/25 History gabapentin 100 mg capsule 200 mg (2 x 100 mg) PO TID 30 days 04/01/24 04/16/25 Rx #180 caps baclofen 10 mg tablet 10 mg PO BIDP PRN Muscle Spasms 04/22/24 04/16/25 History sennosides 8.6 mg-docusate sodium 1 tab PO BID 04/22/24 04/16/25 History 50 mg tablet (Stimulant Laxative Plus) empagliflozin 10 mg tablet 10 mg PO DAILY 30 days #30 tabs 04/29/24 04/16/25 Rx (Jardiance) insulin glargine 100 unit/mL (3 35 unit (0.35 mL) SQ HS 30 days #0 04/29/24 04/16/25 Rx mL) subcutaneous pen (Lantus mL Solostar U-100 Insulin) sacubitril 24 mg-valsartan 26 mg 1 tab PO BID 30 days #60 tabs 04/29/24 04/16/25 Rx tablet (Entresto) spironolactone 25 mg tablet 25 mg PO DAILY 30 days #30 tabs 04/29/24 04/16/25 Rx ondansetron HCl 4 mg tablet 4 mg PO Q8H PRN nausea and 05/13/24 04/16/25 Rx vomiting 4 days #12 tabs cefdinir 300 mg capsule mg PO 06/05/24 04/16/25 History terbinafine HCl 250 mg tablet mg PO 06/05/24 04/16/25 History amiodarone 400 mg tablet See Rx Instructions .Route 06/14/24 04/16/25 Rx .COMPLEX #180 tabs folic acid 400 mcg tablet 0.4 mg PO DAILY 06/20/24 04/16/25 History doxycycline hyclate 100 mg capsule 100 mg PO BID cellulitis 10 days 07/17/24 04/16/25 Rx #20 caps linezolid 600 mg tablet 600 mg PO BID 10 days #20 tabs 07/17/24 04/16/25 Rx levofloxacin 750 mg tablet 750 mg PO DAILY 14 days #14 tabs 08/13/24 04/16/25 Rx New Prescriptions to Start Prescriptions: Height: 1.83 m Weight: 117.934 kg Laboratory Results:: Laboratory Results - last 24 hr 05/07/25 13:07: WBC 9.4, RBC 4.95, Hgb 11.6 L, Hct 38.0 L, MCV 76.8 L, MCH 23.4 L, MCHC 30.5 L, RDW 16.9, Plt Count 299, MPV 10.3, Neut % (Auto) 69.2, Lymph % (Auto) 16.0, [place] % (Auto) 9.6 H, Eos % (Auto) 3.9, Baso % (Auto) 0.7, Neut # (Auto) 6.5, Lymph # (Auto) 1.5, [place] # (Auto) 0.9, Eos # (Auto) 0.4, Baso # (Auto) 0.1, Sodium 140, Potassium 4.3, Chloride 108 H, Carbon Dioxide 21 L, Anion Gap 15.3 H, BUN 25 H, Creatinine 0.80, Estimated Creat Clear 113, Estimated GFR 95, Est GFR ( Amer) 115, Glucose 242 H, Calcium 9.2, Total Bilirubin 0.2, AST 26, ALT 17, Alkaline Phosphatase 161 H, Total Protein 7.9, Albumin 4.0, Globulin 3.9 H, Albumin/Globulin Ratio 1.0 L, Acetone Level None detected 05/07/25 13:51: Urine Color Yellow, Urine Appearance Cloudy, Urine pH 6.0, Ur Specific [place] 1.020, Urine Protein 2+ A, Urine Glucose (UA) Negative, Urine Ketones Negative, Urine Blood 2+ A, Urine Nitrate Positive A, Urine Bilirubin Negative, Urine Urobilinogen 0.2, Ur Leukocyte Esterase 1+ A, Urine RBC Occasional, Urine WBC 10-20, Ur Squamous Epith Cells 3-5, Urine Bacteria Trace 05/07/25 14:13: VBG pH 7.38, VBG pCO2 32.1 L, VBG pO2 122.1 H, VBG HCO3 18.6 L, VBG Total CO2 19.5 L, VBG O2 Saturation 98.4 H, VBG Base Excess -6.6 L, VBG Lactic Acid 1.4 Medical History: Medical History (Updated 11/28/24 @ 08:01 by Sherri Faust DPM) Seizure CAD in [place] artery Acute febrile illness Atrial flutter Bilateral cellulitis of lower leg Cellulitis Diabetes mellitus Dystrophia unguium Fatigue Fever Infestation by fly larvae Lymphedema of both lower extremities Malaise Obesity with body mass index (BMI) of 30.0 to 39.9 Peripheral vascular disease Renal insufficiency Spinal stenosis of cervical region Spinal stenosis of lumbar region Systemic inflammatory response syndrome (SIRS) Ulcers of both lower extremities Uncontrolled diabetes mellitus History of left heart catheterization (LHC) Assessment and Plan Assessment and plan all Dx Assessment and Plan for all problems:: Pharmacokinetic dosing service Objective: Patient: Floor: Age: 70 yo Serum creatinine: 0.80 mg/dL Height: 72.0 Inches Weight (kg): 118 Assessment: IBW (kg): 77.60 Dosing wt(kg): 93.8 Estimated Creatinine clearance (ml/min): 93.0 CRCL method: Cockcroft and Gault using ibw(default). Drug selected: Tobramycin Loading dose (mg): 0 Vd (liters): 28.1 (factor used: 0.3 L/kg) Emir (hr-1): 0.199 Half life (hrs): 3.48 Recommended dose: 480 mg Interval: 24 hrs Infusion time (hrs): 1 Predicted peak (mcg/mL): 15.6 Predicted trough (mcg/mL): 0.16 Recommendations: Give Tobramycin 480 mg q 24 hrs with an expected Cpeak of 15.6 mcg/ml and an expected Ctrough of 0.16 mcg/ml Thank you for the consult, will continue to follow. -NADIA DIAZ, MALLIKAD
--- NOTE | 2025-05-07 15:40 | PC.NURSE ---
Krystle from Case Management at bedside
[2025-05-07] MEDS: SODIUM CHLORIDE 0.9% IV (16:08)
[2025-05-07] MEDS: TOBRAMYCIN SULFATE IV (16:08)
--- NOTE | 2025-05-07 16:19 | CARE MANAGER ---
Addendum entered by Krystle Rowe RN 05/08/25 13:45: Spoke with patient via phone, [facility] has reached out to him and plans to deliver medication today. A [facility] notified of new infusions. Orders sent to for SN to be added to account. Original Note: Spoke with patient to discuss need for outpatient IV antibiotics. Patient would prefer to do infusions at home, [facility] signed for [facility]. Order/clinical faxed. will notify A tomorrow and send additional orders if needed.
--- NOTE | 2025-05-07 16:33 | PC.NURSE ---
Harry Negrete RN at bedside to place midline access.
--- NOTE | 2025-05-07 17:43 | XR_ITS ---
PROCEDURE INFORMATION: Exam: XR Chest Exam date and time: 05/07/2025 6:25 PM Age: 70 years old Clinical indication: Other: Post midline cxr TECHNIQUE: Imaging protocol: Radiologic exam of the chest. Views: 1 view. Total images: 2 COMPARISON: CR XR CHEST PORTABLE 08/01/2024 11:25 AM FINDINGS: Lungs: Atelectatic changes noted within both lung bases. No focal pneumonia. Mild interstitial prominence bilaterally. Pleural spaces: No pleural effusion. No pneumothorax. Heart/Mediastinum: Heart demonstrates moderate diffuse enlargement. Diaphragm: There is nonspecific elevation of the right hemidiaphragm. Bones/joints: Rightward curvature of the thoracic spine with mild degenerative changes. IMPRESSION: 1. Moderate cardiomegaly. 2. Atelectatic changes noted within both lung bases. 3. No focal pneumonia. 4. Mild interstitial prominence bilaterally.
--- NOTE | 2025-05-07 18:24 | PC.NURSE ---
I notified radiology of the CXR
[2025-05-07] MEDS: IBUPROFEN 800 MG TABLET PO (19:48)
--- NOTE | 2025-05-10 08:37 | PC.NURSE ---
Urine culture results reviewed by Dr. Saxena, no new orders received at this time.
--- NOTE | 2025-05-12 08:26 | PC.NURSE ---
I attempted to contact the pt about his urine culture results, unable to reach him at this time.
== END 2025-05-07 20:30 | disposition home or self-care (01) ==
PROVIDERS: Physician Assistant; Emergency Provider Student in an Organized Health Care Education/Training Program
DX: N39.0 Urinary tract infection, site not specified (principal)
CPT/HCPCS: 51702; 71045; 74177; 80053; 81001; 82009; 82803; 85025; 87040; 87086; 87088; 87186; 96365; 99284; J3260; Q9967

== ENCOUNTER 2025-05-11 10:39 | Outpatient (CLI) | payer MEDICARE, SELFPAY ==
--- OUTSIDE RECORDS SUMMARY | 2023-01-18 05:30 | XMS_ITS | Continuity of Care Document ---
Author Organization [address] [place] [address] Address [address] [facility] [address] [place] [address] Phone Care Team Providers Care Wax Ball Knock Out Worker Name Role Phone Ruben Avila DPM Unavailable [...] Copied on Encounter NURSING FAC CARE SUBSEQ [address] [place] [address], [address] [place] [address], [place], [id number], tel:[phone] [facility] Acquired absence of right leg above kneeTinea unguiumType 2 diabetes mellitus with diabetic peripheral angiopathy without gangrene 3 Austin Miranda. [address] [facility], [address], [place], [address], . Referring Provider: Gustavo Leggett. PSYCH DIAGNOSTIC EVALUATION [address] [place] [address], [address] [place] [address], [place], [place], [id number], tel:[phone] [facility] Adjustment disorder with depressed mood 3 [place]. [place]. [facility] 30 [facility], [address] [place] [address] 300, [place], [place], [id number], [place] tel:[phone] [facility] Depressed mood withincrease d sadness, Less motivation, (chief complaint) Major depressive disorder, single episode, moderateGene ralized anxiety disorder 3 Wade Russell. [place]. [address] [place] [address], [address] [place] [address], [place], [place], [id number], [place] tel:[phone] [facility] Impacted cerumen, right ear 3 Rachid Kearnsisten. [place], [place]. Referring Provider: Gustavo Leggett. 1ST CARE SF/LOW MDM [address] [place] [address], [address] [place] [address], [place], [place], [id number], tel:[phone] [facility] Initial assessment for Anxiety, Depression, occasional (chief complaint) Major depressive disorder, single episode, moderateGene ralized anxiety disorder 3 [place]. [address] [place] [address], [address] [place] [address], [place], [place], [id number], [place] tel:[phone] [facility] Encounter for dental examination and cleaning without abnormal findings 3 [place], [place], [place]. tel:[phone] Referring Provider: Gustavo Leggett. NURSING FAC CARE SUBSEQ [address] [place] [address], [address] [place] [address], [place], [place], [id number], [place] tel:[phone] [facility] Tinea unguiumType 2 diabetes mellitus with diabetic peripheral angiopathy without gangreneAbra joseph, left lesser toe(s), initial encounterAcq uired absence of right leg above knee 3 Austin Miranda. [address] [facility], [address], [place], [address], [place]. Referring Provider: Gustavo Leggett. [address] [place] [address], [address] [place], [place] [address], [place], [place], [id number], [place] tel:[phone] [facility] Diabetic eye exam (chief complaint) Type 2 diabetes mellitus without complication sVitreous degeneration , bilateralAge -related nuclear cataract, bilateralDry eye syndrome of bilateral lacrimal glands 2 Zaira [address]. [address], [address], [place], [address], [place]. Referring Provider: Gustavo Leggett. [address] [place] [address], [address] [place] [address], [place], [place], [id number], [place] tel:[phone] [facility] No Information 2 Zaira Escobar. [address] [facility], [address], [place], [address], . Family History Family Member Type Diagnosis Age At Onset No Information Payers Payer name Insurance type Covered alliance party ID Sushila hussein(s) [employer] Medicare [place] [id number] Medicaid [place] [id number] Social History Type Description Quantity Date Captured [...] ear. Related to Impacted cerumen, right ear Toenails 1-5 left we re debrided in length and thickness without incident. Follow up in 2-3 months. Related to Tinea unguium Discussed with the conor martinez. Continue betadine to abrasions on 4th and 5th toes daily. Monitor for infection. Dry dressing if needed. Related to Abrasion, left lesser toe(s), initial encounter We will schedule a f ollow up appointment in 6-9 months for a dilated fundus exam. Related to Dry eye syndrome of bilateral lacrimal glands Impression/Plan - No active diabetic retinopathy present in either eye. We will monitor at regular intervals. Related to Type 2 diabetes mellitus without complications Impression/Plan - Vi treous floaters are present; however, no holes, breaks, or tears are evident. Related to Vitreous degeneration, bilateral Impression/Plan - Ca taracts are moderate and are affecting visual acuity; however, no treatment recommended at this time. We will monitor for progression. Related to Age-related nuclear cataract, bilateral Follow up - We will schedule a follow up appointment in 6-9 months for a dilated fundus exam. Related to Dry eye syndrome of bilateral lacrimal glands Impression/Plan - Dr y eye syndrome is significant; treat with artificial tears solution; 1 drop both eyes twice per day. Related to Dry eye syndrome of bilateral lacrimal glands Assessments Type Assessment Date assessment Acquired absence of right leg ab ove knee assessment Tinea unguium assessment Type 2 diabetes flor itus with diabetic peripheral angiopathy without gangrene Patient Care Teams Name Effective Dates (start - stop) Status Members No Information
--- OUTSIDE RECORDS SUMMARY | 2025-05-11 10:42 | XMS_ITS | Clinical Summary ---
Author Organization [facility] Address [address] [place] [address] Phone Care Team Providers Care Home Economist Name Role Phone Mckenna MURILLO, Britton Clifford [phone] [ ] Conditions or Problems Problem Name Problem Code Onset Date Status Entry Date Provider Comment Standard Description Annotate DM Non-pressure chronic ulcer of left heel, black/dry (document depth) 169899051 (SNOMED CT) 09/19 Active 09/19 Crys Alfredo Chronic ulcer of foot Infection, local skin/subcuta neous tissue 145440908 (SNOMED CT) 09/19 Active 09/19 Crys Alfredo Localized infection of skin AND/OR subcutaneous tissue Gangrene with DM II PVD 07586107 (SNOMED CT) 09/19 Active 09/19 Crys Alfredo Type 2 diabetes mellitus DM II with diabetic PVD 040811292 (SNOMED CT) Active Crys Alfredo Peripheral vascular disease Diabetes mellitus, type II with peripheral vascular disorder, with gangrene 344473961 (SNOMED CT) Resolved Crys Alfredo Peripheral circulatory disorder due to type 2 diabetes mellitus Presence of ambrose catheter 060658383 (SNOMED CT) Resolved Crys Alfredo Urinary catheter in situ Benign Essential Hypertension 06216572 (SNOMED CT) Active Crys Alfredo Benign hypertension DM II with diabetic polyneuropat hy E11.42 (ICD-10-CM) Active Crys Alfredo Type 2 diabetes mellitus with diabetic polyneuropathy Other obesity due to excess calories 161333829 (SNOMED CT) Active Myranda Zelaya Simple obesity Presence of ambrose catheter 870042984 (SNOMED CT) Removed Bibi Edelen Urinary catheter in situ Pressure ulcer of left buttock, stage 1 58240420599 334738 (SNOMED CT) Active Bibi Edelen Pressure injury of buttock stage I Pressure ulcer of right buttock, stage 1 68694734209 107 (SNOMED CT) Active Bibi Edelen Pressure injury of right buttock stage I Cellulitis of left lower limb 267844541 (SNOMED CT) Active Bibi Edelen Cellulitis of leg, excluding foot Diabetes mellitus, type II with peripheral vascular disorder, with gangrene 327164345 (SNOMED CT) Removed Bibi Edelen Peripheral circulatory disorder due to type 2 diabetes mellitus Hx of DVT 572380086 (SNOMED CT) Active Bibi Edelen History of deep vein thrombosis Amputation of right leg above knee 277342027 (SNOMED CT) Active Bibi Edelen Amputated above knee Diabetes mellitus, type II with peripheral vascular disorder, without gangrene 201962008 (SNOMED CT) Inactive Bibi Edelen Peripheral circulatory disorder due to type 2 diabetes mellitus Diabetes mellitus, type II with peripheral neuropathy 47570664127 07 (SNOMED CT) Inactive Bibi Edelen Peripheral neuropathy due to type 2 diabetes mellitus Hypertension 70651777 (SNOMED CT) Inactive Bibi Edelen Hypertensive disorder Medications Medication Instructions Start Date Stop Date Generic Name NDC Provider DOXYCYCLINE HYCLATE 100 MG CAPS Take 1 capsule by mouth 2 (Two) Times a Day for 10 days. doxycycline hyclate 20186419959 QIE qieuser AMOXICILLIN-POT CLAVULANATE 875-125 MG TABS 1 {tbl} Oral amoxicillin-pot clavulanate 95231598652 QIE qieuser ATORVASTATIN CALCIUM 40 MG TABS Take 2 tablet by mouth every night atorvastatin 34659221494 Daria Minor METFORMIN HCL 500 MG TABS Take 2 tablet by mouth twice a day metformin 22161564046 Daria Minor CLOPIDOGREL BISULFATE 75 MG TABS Take 1 tablet by mouth once a day clopidogrel 70935364855 Daria Minor PEG 3350 17 GM PACK Take 17 gram by mouth once a day as needed polyethylene glycol 3350 06210843198 Daria Minor LAMOTRIGINE 100 MG TABS Take 1 tablet by mouth every morning lamotrigine 39762321108 Daria Minor FINASTERIDE 5 MG TABS Take 1 tablet by mouth once a day finasteride 28517301582 Daria Minor DOCUSATE SODIUM 250 MG CAPS Take 1 capsule by mouth twice a day docusate sodium 87698324499 Daria Minor ASPIRIN 81 MG TBEC Take 1 tablet by mouth once a day aspirin 33010085391 Daria Minor FUROSEMIDE 40 MG TABS Take 1 tablet by mouth once a day furosemide 94068051782 Daria Minor Thera M Plus (ferrous fumarat) 9 mg iron-400 mcg tablet Take 1 tablet by mouth once a day llixahig-rkaa-c d-hotybhj-vexa 73958562258 Daria Minor FERROUS SULFATE 325 (65 Fe) MG TABS Take 1 tablet by mouth every morning ferrous sulfate 83495589111 Daria Minor LAMOTRIGINE 25 MG TABS Take 10 tablet by mouth every night lamotrigine 51785776114 Daria Minor BACLOFEN 20 MG TABS Take 1 tablet by mouth as needed baclofen 48623647208 Daria Minor TAMSULOSIN HCL 0.4 MG CAPS Take 2 capsule by mouth once a day tamsulosin 78492228666 Daria Minor DIAZEPAM 2 MG TABS Take 1 tablet by mouth twice a day as needed diazepam 07791877606 Daria Minor LOSARTAN POTASSIUM 50 MG TABS Take 1 tablet by mouth once a day losartan 08009972105 Daria Minor BUSPIRONE HCL 5 MG TABS Take 1 tablet by mouth three times a day buspirone 66497107540 Daria Minor METOPROLOL SUCCINATE ER 25 MG [id number] Take 1 tablet by mouth once a day metoprolol succinate 65292108244 Daria Minor ubrogepant Take 1 tablet by mouth once a day as needed UBRELVY Daria Minor GLIPIZIDE 5 MG TABS Take 1 tablet by mouth twice a day glipizide 35098073550 Daria Minor ubrogepant Take 1 tablet by mouth Daily As Needed. UBRELVY QIE qieuser TAMSULOSIN HCL 0.4 MG CAPS Take 2 capsules by mouth Daily. tamsulosin 77327231667 QIE qieuser PEG 3350 17 GM PACK Take 17 g by mouth Daily As Needed. polyethylene glycol 3350 50507621321 QIE qieuser Thera M Plus (ferrous fumarat) 9 mg iron-400 mcg tablet Take 1 tablet by mouth Daily. uvmzpnlp-zlzq-q s-wxxtcin-wfre 21624785689 QIE qieuser METOPROLOL SUCCINATE ER 25 MG AD63P-HCO Take 1 tablet by mouth Daily. metoprolol succinate 69944274564 QIE qieuser METFORMIN HCL 500 MG TABS Take 2 tablets by mouth 2 (Two) Times a Day With Meals. metformin 67630637132 QIE qieuser LOSARTAN POTASSIUM 50 MG TABS Take 1 tablet by mouth Daily. losartan 71167691579 QIE qieuser LAMOTRIGINE 25 MG TABS Take 10 tablets by mouth Every Night. lamotrigine 44263951228 QIE qieuser LAMOTRIGINE 100 MG TABS Take 1 tablet by mouth Every Morning. lamotrigine 74610108457 QIE qieuser GLIPIZIDE 5 MG TABS Take 1 tablet by mouth 2 (Two) Times a Day Before Meals. glipizide 96208267746 QIE qieuser FUROSEMIDE 40 MG TABS Take 1 tablet by mouth Daily. furosemide 17462113662 QIE qieuser FINASTERIDE 5 MG TABS Take 1 tablet by mouth Daily. finasteride 78624245533 QIE qieuser FERROUS SULFATE 325 (65 Fe) MG TABS Take 1 tablet by mouth Daily With Breakfast. ferrous sulfate 95446878202 QIE qieuser DOXYCYCLINE HYCLATE 100 MG CAPS Take 1 capsule by mouth 2 (Two) Times a Day for 7 days. doxycycline hyclate 95598399697 QIE qieuser DOCUSATE SODIUM 250 MG CAPS Take 1 capsule by mouth 2 (Two) Times a Day. docusate sodium 63895731977 QIE qieuser DIAZEPAM 2 MG TABS Take 1 tablet by mouth 2 (Two) Times a Day As Needed for Anxiety. diazepam 53982062434 QIE qieuser CLOPIDOGREL BISULFATE 75 MG TABS Take 1 tablet by mouth Daily. clopidogrel 98460242801 QIE qieuser BUSPIRONE HCL 5 MG TABS Take 1 tablet by mouth 3 (Three) Times a Day. buspirone 53688403530 QIE qieuser BACLOFEN 20 MG TABS Take 1 tablet by mouth As Needed for Muscle Spasms. baclofen 95002883155 QIE qieuser ATORVASTATIN CALCIUM 40 MG TABS Take 2 tablets by mouth Every Night. atorvastatin 46804530346 QIE qieuser ASPIRIN 81 MG TBEC Take 1 tablet by mouth Daily. OTC aspirin 70396834724 QIE qieuser AMOXICILLIN-POT CLAVULANATE 875-125 MG TABS Take 1 tablet by mouth 2 (Two) Times a Day for 7 days. amoxicillin-pot clavulanate 48096944764 QIE qieuser Medications Administered No information available. [...]
--- OUTSIDE RECORDS SUMMARY | 2025-05-11 10:43 | XMS_ITS | Encounter Summary ---
Author Organization Healthcare Address [address] [place] [address] Care Team Providers Care American History Teacher Name Role Phone John Paul Orellana MD Primary Care Provider [phone] Encounter Details Date Type Department Care Team (Late st Contact Info) Description 08/04/2023 Community Orders Community Practice [address] [place] [address] Shree Anand MD [address] [facility] [address] [place] [address] Parkinsonian features (Primary Dx) Social [...] drink first t clarita in the morning (EYE-BEHAVIORAL HEALTH SPECIALIST) to steady your nerves or to get [...] documented as of this encounter Care Teams American History Teacher Relationship Specialty Start Date End Date John Paul Orellana MD [address] [place] [address] PCP - General 01/24/21 documented as of this encounter
--- OUTSIDE RECORDS SUMMARY | 2025-05-11 10:43 | XMS_ITS | Continuity of Care Document ---
Author Organization [facility] Address [address] [place] [address] Care Team Providers Care Asbestos Wire Finisher Name Role Phone John Paul Orellana MD Primary Care Provider [phone] Encounters Date Type Department Care Team Description 05/23/2022 12:45 PM EDT - 05/23/2022 11:59 PM EDT [place] [facility] [address] [place] [address] System, Provider Not In Discharge Disposition: Home or Self Care 05/20/2022 3:19 AM EDT - 05/23/2022 2:00 PM EDT Hospital Encounter [facility] 3 Central Intensive Care Unit [address] [place] [address] Luz Kumari MD Knighton, Martha A, MD Acute encephalopathy (Primary Dx); Acute respiratory failure with hypoxia Discharge Disposition: [facility] Facility 04/13/2022 9:45 AM EDT Office Visit [place] [id number] [place] [address] Cecil Carrillo MD Meningioma (Primary Dx) 04/01/2022 1:12 PM EDT - 04/05/2022 5:41 PM EDT Hospital Encounter [facility] [address] [place] [address] Carter Barajas DO Status epilepticus (Primary Dx) Discharge Disposition: [facility] Facility Allergies Active Allergy Reactions Criticality Noted [...] Father Social History Smoking Status as of 05/11/2025 Tobacco Use Types Packs/Day Years Used Date [...] of28 resultswithin the time period is included. [facility] Glucose Glucometer 139 71 - 139 mg/dL 05/23/2022 11:59 AM EDT [facility] Serum 05/23/2022 11:5 5 AM EDT 05/23/2022 11:59 AM EDT us Enedina Chavis MD LAB BLOOD ORDERABLES Final Result [facility] ([id number]) [address] [place] [address] [facility] [address] [place] [address] * COVID FLU RSV PCR Panel: Reason for Testing: Asymptomatic Transfer to Another Facility for Patient Placement (05/22/2022 3:23 PM EDT) Only the most recent of2 resultswithin the time period is included. [facility] COVID, FLU, RSV Source Nasopharyngeal 05/22/2022 2:27 PM EDT [facility] FLU A Result Not Detected Not Detected 05/22/2022 4:13 PM EDT [facility] FLU B Result Not Detected Not Detected 05/22/2022 4:13 PM EDT [facility] RSV Result Not Detected Not Detected 05/22/2022 4:13 PM EDT [facility] COVID-19 Result Not Detected Not Detected 05/22/2022 4:13 PM EDT [facility] COVID Result Comment (note) This test utilizes [...] and Drug Administration. 05/22/2022 4:13 PM EDT [facility] Reason for Testing ASYMPTOMATIC TRANSFER TO ANOTHER FACILITY FOR PATIENT PLACEMENT 05/22/2022 2:27 PM EDT [facility] Nasopharyngeal 05/22/2022 3: 23 PM EDT 05/22/2022 3:33 PM EDT Enedina Chavis MD MICROBIOLOGY [facility] Final Result [facility] ([id number]) [address] [id number] [facility] [address] [place] [address] [facility] * [place] Modified Barium Swallow (05/22/2022 10:53 [...] 4.5 - 11.0 10*3/uL 05/22/2022 5:03 AM [facility] Red Blood Count 3.24(L) 4.5 - 5.9 10*6/uL 05/22/2022 5:03 AM [facility] Hemoglobin 9.0(L) 13.5 - 17.5 g/dL 05/22/2022 5:03 AM [facility] Hematocrit 28.6(L) 41.0 - 53.0 % 05/22/2022 5:03 AM [facility] Mean Corpuscular Volume 88.3 80.0 - 100.0 fL 05/22/2022 5:03 AM [facility] Mean Corpuscular Hemoglobin 27.8 26.0 - 34.0 pg 05/22/2022 5:03 AM [facility] Mean Corpuscular HGB Conc 31.5 31.0 - 37.0 g/dL 05/22/2022 5:03 AM [facility] Red Cell Distribution Width-CV 13.9 12.0 - 16.8 % 05/22/2022 5:03 AM [facility] Platelet Count 244 140 - 440 10*3/uL 05/22/2022 5:03 AM [facility] Mean Platelet Volume 10.0 8.4 - 12.4 fL 05/22/2022 5:03 AM [facility] Diff Type Hospital CBC w/AutoDiff (arb'U) 05/22/2022 5:03 AM [facility] Neutrophils % 75.4 45 - 80 % 05/22/2022 5:03 AM [facility] Lymphocyte % 14.7(L) 15 - 50 % 05/22/2022 5:03 AM [facility] Monocyte % 6.7 0 - 15 % 05/22/2022 5:03 AM [facility] Eosinophil% 1.5 0 - 7 % 05/22/2022 5:03 AM [facility] BASO% 0.4 0 - 2 % 05/22/2022 5:03 AM [facility] Immature Granulocyte% 1.3(H) 0.0 - 1.0 % 05/22/2022 5:03 AM EDT [facility] Nucleated RBC % 0 0 /100(WBC) 05/22/2022 5:03 AM EDT [facility] Neutrophil Abs 7.09 2.0 - 8.8 10*3/uL 05/22/2022 5:03 AM EDT [facility] Lymphocyte-Absol [place] 1.38 0.7 - 5.5 10*3/uL 05/22/2022 5:03 AM EDT [facility] Monocyte Absolute 0.63 0.0 - 1.7 10*3/uL 05/22/2022 5:03 AM EDT [facility] EOS-Absolute 0.14 0.0 - 0.8 10*3/uL 05/22/2022 5:03 AM EDT [facility] Basophil Abs 0.04 0.0 - 0.2 10*3/uL 05/22/2022 5:03 AM EDT [facility] Immature Granulocyte Abs 0.12(H) 0.00 - 0.10 10*3/uL 05/22/2022 5:03 AM T [facility] Whole Blood BLOOD SPECIMEN FROM PATIENT / Unknown 05/22/2022 4:44 AM EDT 05/22/2022 4:52 AM EDT us Enedina Chavis MD LAB BLOOD ORDERABLES Final Result [facility] ([id number]) [address] [place] [address] [facility] [address] [place] [address] * (ABNORMAL) Magnesium (05/22/2022 4:44 AM EDT) Only the most recent of5 resultswithin the time period is included. Magnesium 1.5(L) 1.6 - 2.6 mg/dL 05/22/2022 5:09 AM EDT [facility] Plasma BLOOD SPECIMEN FROM PATIENT / Unknown 05/22/2022 4:44 AM EDT 05/22/2022 4:52 AM EDT us Luz Kumari MD LAB BLOOD ORDERABLES Final Result [facility] ([id number]) [address] [place] [address] [facility] [address] [place] [address] * (ABNORMAL) Basic Metabolic Panel (BMP) (05/22/2022 4:44 AM EDT) Only the most recent of5 resultswithin the time period is included. Sodium 137 136 - 145 mmol/L 05/22/2022 5:10 AM [facility] Comment: (note) Excess protein and/or lipids can falsely decrease sodium levels (pseudo hyponatremia). Potassium 3.9 3.5 - 5.1 mmol/L 05/22/2022 5:10 AM [facility] Chloride 107 98 - 107 mmol/L 05/22/2022 5:10 AM [facility] Comment: (note) Falsely elevated chloride levels can be seen in patients taking medications which contain bromide. Carbon Dioxide 23 22 - 29 mmol/L 05/22/2022 5:10 AM [facility] Anion Gap 7 5 - 13 (arb'U) 05/22/2022 5:10 AM [facility] Comment: (note) Calculation- Na - (Cl + CO2) Glucose 155(H) 71 - 139 mg/dL 05/22/2022 5:10 AM [facility] Comment: (note) Reference range based on inpatient hypo/hyperglycemic treatment levels. A random glucose =/>200 is concerning for poor control. Blood Urea Nitrogen (BUN) 17 8 - 26 mg/dL 05/22/2022 5:10 AM [facility] Creatinine-Bloo d 0.48(L) 0.73 - 1.18 mg/dL 05/22/2022 5:10 AM [facility] BUN/Creatinine Ratio 35.4 RATIO 05/22/2022 5:10 AM [facility] Estimated GFR >60 >60 /1.73 m2 05/22/2022 5:10 AM EDT [facility] Comment: (note) Results do not take into account body mass. Valid for patients 18 to 70 years of age. Estimated GFR if -Lissy n >60 >60 /1.73 m2 05/22/2022 5:10 AM EDT [facility] Comment: (note) Results do not take into account body mass. Valid for patients 18 to 70 years of age. Calcium 7.9(L) 8.4 - 10.2 mg/dL 05/22/2022 5:10 AM EDT [facility] Plasma BLOOD SPECIMEN FROM PATIENT / Unknown 05/22/2022 4:44 AM EDT 05/22/2022 4:52 AM EDT us Enedina Chavis MD LAB BLOOD ORDERABLES Final Result [facility] ([id number]) [address] [id number] [facility] [address] [place] [address] * Echo Doppler 2D Mmode Color Complete (05/21/2022 3:26 PM EDT) 05/21/2022 2:54 PM EDT N[facility]ative [facility] 05/21/2022 6:45 PM EDT REVIEWING YOUR TEST RESULTS IN [facility] IS NOT A SUBSTITUTE FOR DISCUSSING THOSE RESULTS WITH YOUR HEALTH CARE PROVIDER. PLEASE CONTACT YOUR PROVIDER VIA [facility] TO DISCUSS ANY QUESTIONS OR CONCERNS YOU MAY HAVE REGARDING THESE TEST RESULTS. CARDIOLOGY REPORT FACILITY: [facility] PATIENT NAME/: VITALY CASILLAS 1955 UNIT/AGE/GENDER: AGE: 67 YR GENDER: M UNIT NUMBER: [id number] ACCESSION NUMBER: [id number] DATE OF EXAM: 05/21/2022 14:54 EXAMINATION(S): ECHO DOPPLER 2D MMODE SPECT COLOR COMPLETE FINAL REPORT Procedure Information Procedure type: Echo Proc. sub type: TTE procedure: ECHO DOPPLER 2D MMODE SPECT COLOR COMPLETE. Start date time: 05/21/2022 Blood pressure: 118 / 60 mmHg Contrast medium: Lumason Accession no: [id number] Procedure Staff Referring Physician: Enedina Chaves Construction Scheduler: Kiki Harper Interpreting Physician: [place] Seed Yeast Operator Bennie Montano Clinical Indications Syncope. Physician Conclusions [...] - 05/21/2022 REVIEWING YOUR TEST RESULTS IN [facility] IS NOT A SUBSTITUTE FORDISCUSSING THOSE RESULTS WITH YOUR HEALTH CARE PROVIDER. PLEASE CONTACT YOUR PROVIDER VIA [facility] TO DISCUSS ANY QUESTIONS ORCONCERNS YOU MAY HAVE REGARDING THESE TEST RESULTS. CARDIOLOGY REPORT FACILITY: [facility] PATIENT NAME/: VITALY CASILLAS 1955 UNIT/AGE/GENDER: AGE: 67 YR GENDER: M UNIT NUMBER: [id number] ACCESSION NUMBER: [id number] DATE OF EXAM: 05/21/2022 14:54 EXAMINATION(S): ECHO DOPPLER 2D MMODE SPECT COLOR COMPLETE FINAL REPORT ProcedureInformation Procedure type: Echo Proc. sub type: TTE procedure: ECHO DOPPLER 2D MMODE SPECT COLORCOMPLETE. Start date time: 05/21/2022 Bloodpressure: 118 / 60 mmHg Contrast medium: Lumason Accession no: [id number] Procedure Staff Referring Physician: Enedina Chaves Construction Scheduler: Kiki Harper Interpreting Physician: *[place] [employer] Yeast Operator Bennie Montano Clinical Indications Syncope. Physician Conclusions [...] CARE PROVIDER. PLEASE CONTACT YOUR PROVIDER [facility] TO DISCUSS ANY QUESTIONS OR CONCERNS YOU MAY HAVE REGARDING THESE TEST RESULTS. RADIOLOGY REPORT FACILITY: [facility] UNIT/AGE/GENDER: J.ICU IN AGE:67 Y SEX:M PATIENT NAME/: VITALY CASILLAS [place] 1955 UNIT NUMBER: [id number] ACCESSION NUMBER: [id number] CTA Head CTA Neck Examination Date: 05/21/2022 [...] and Basilar Arteries: Codominant. No significant stenosis. physician pediatrician: Unremarkable. Superior Cerebellar and PICAs: Patent proximally. [...] - 05/21/2022 REVIEWING YOUR TEST RESULTS IN [facility] IS NOT A SUBSTITUTE FORDISCUSSING THOSE RESULTS WITH YOUR HEALTH CARE PROVIDER. PLEASE CONTACT YOUR PROVIDER VIA [facility] TO DISCUSS ANY QUESTIONS ORCONCERNS YOU MAY HAVE REGARDING THESE TEST RESULTS. RADIOLOGY REPORT FACILITY: [facility] UNIT/AGE/GENDER: J.ICU IN AGE:67 Y SEX:M PATIENT NAME/: VITALY CASILLAS [place] 1955 UNIT NUMBER: [id number] ACCESSION NUMBER: [id number] CTA Head CTA Neck Examination Date: 05/21/2022 [...] and Basilar Arteries: Codominant. No significant stenosis. physician pediatrician: Unremarkable. Superior Cerebellar and PICAs: Patent proximally. [...] M.D.> 05/21/202240 [id number] us Cinthia Snell GIZZARD PULLER IMG CT ORDERABLES Final Re sult * CT Angiogram Head (05/21/2022 6:21 AM EDT) Anatomical Region Laterality Modality Head Computed Tomogra phy 05/21/2022 8:35 AM EDT Narrative 05/21/2022 8:41 AM EDT REVIEWING YOUR TEST RESULTS IN [facility] IS NOT A SUBSTITUTE FOR DISCUSSING THOSE RESULTS WITH YOUR HEALTH CARE PROVIDER. PLEASE CONTACT YOUR PROVIDER [facility]IA [facility] TO DISCUSS ANY QUESTIONS OR CONCERNS YOU MAY HAVE REGARDING THESE TEST RESULTS. RADIOLOGY REPORT FACILITY: [facility] UNIT/AGE/GENDER: J.ICU IN AGE:67 Y SEX:M PATIENT NAME/: VITALY CASILLAS [place] 1955 UNIT NUMBER: [id number] ACCESSION NUMBER: [id number] CTA Head CTA Neck Examination Date: 05/21/2022 [...] and Basilar Arteries: Codominant. No significant stenosis. physician pediatrician: Unremarkable. Superior Cerebellar and PICAs: Patent proximally. [...] by: Car Lynn M.D.> 05/21/2022 [id number] [id number] Procedure Note Car Lynn MD - 05/21/2022 REVIEWING YOUR TEST RESULTS IN [facility] IS NOT A SUBSTITUTE FORDISCUSSING THOSE RESULTS WITH YOUR HEALTH CARE PROVIDER. PLEASE CONTACT YOUR PROVIDER [facility]IA [facility] TO DISCUSS ANY QUESTIONS ORCONCERNS YOU MAY HAVE REGARDING THESE TEST RESULTS. RADIOLOGY REPORT FACILITY: [facility] UNIT/AGE/GENDER: J.ICU IN AGE:67 Y SEX:M PATIENT NAME/: VITALY CASILLAS [place] 1955 UNIT NUMBER: [id number] ACCESSION NUMBER: [id number] CTA Head CTA Neck Examination Date: 05/21/2022 [...] and Basilar Arteries: Codominant. No significant stenosis. physician pediatrician: Unremarkable. Superior Cerebellar and PICAs: Patent proximally. [...] signed by: Car Lynn M.D.> 05/21/2022 0840 [id number] [id number] us Cinthia Snell APRN IMG CT ORDERABLES Final Re sult * Phosphorus (05/21/2022 4:32 AM EDT) Only the most recent of2 resultswithin the time period is included. Phosphorus 3.8 2.3 - 4.7 mg/dL 05/21/2022 5:21 AM EDT [facility] Plasma BLOOD SPECIMEN FROM PATIENT / Unknown 05/21/2022 4:32 AM EDT 05/21/2022 4:56 AM EDT us Enedina Chavis MD LAB BLOOD ORDERABLES Final Result [facility] ([id number]) [address] [place] [address] [facility] [address] [place] [address] * Holter Monitor Placement (05/20/2022 5:53 PM EDT) 05/20/2022 5:12 PM EDT [facility]ative [facility] 05/22/2022 10:39 PM EDT REVIEWING YOUR TEST RESULTS IN [facility] IS NOT A SUBSTITUTE FOR DISCUSSING THOSE RESULTS WITH YOUR HEALTH CARE PROVIDER. PLEASE CONTACT YOUR PROVIDER VIA [employer] TO DISCUSS ANY QUESTIONS OR CONCERNS YOU MAY HAVE REGARDING THESE TEST RESULTS. CARDIOLOGY REPORT FACILITY: [facility] PATIENT NAME/: VITALY CASILLAS 1955 UNIT/AGE/GENDER: AGE: 67 YR GENDER: M UNIT NUMBER: [id number] ACCESSION NUMBER: [id number] DATE OF EXAM: 05/20/2022 17:12 EXAMINATION(S): HOLTER [...] - 05/22/2022 REVIEWING YOUR TEST RESULTS IN [facility] IS NOT A SUBSTITUTE FORDISCUSSING THOSE RESULTS WITH YOUR HEALTH CARE PROVIDER. PLEASE CONTACT YOUR PROVIDER VIA [employer] TO DISCUSS ANY QUESTIONS ORCONCERNS YOU MAY HAVE REGARDING THESE TEST RESULTS. CARDIOLOGY REPORT FACILITY: [facility] PATIENT NAME/: VITALY CASILLAS 1955 UNIT/AGE/GENDER: AGE: 67 YR GENDER: M UNIT NUMBER: [id number] ACCESSION NUMBER: [id number] DATE OF EXAM: 05/20/2022 17:12 EXAMINATION(S): HOLTER [...] Tyree Tony M.D. 05/22/2022 22:39 Lissette Orlandoangus Flood DO CV CARDIAC SERVICES LEVI COHEN Final Result [facility] * EKG 12 lead (05/20/2022 5:02 PM EDT) 05/20/2022 5:02 PM EDT Narrative [place] [facility] - 05/21/2022 8:39 AM EDT CARDIOLOGY REPORT FACILITY: [facility] PATIENT NAME/: VITALY CASILLAS 1955 UNIT/AGE/GENDER: AGE: 67 YR GENDER: M UNIT NUMBER: [id number] ACCESSION NUMBER: [id number] DATE OF EXAM: 05/20/2022 17:02 EXAMINATION(S): ECG 12-LEAD FINAL REPORT Procedure: ELECTROCARDIOGRAM RESULT Heart Rate 56 P-R Interval 140 ms QRS Interval 110 ms QT Interval 468 ms QTC Interval 452 ms P [place] 22 deg QRS [place] 21 deg T Wave [place] 7 deg DATE: 05/20/2022 17:02 SINUS BRADYCARDIA NONSPECIFIC INTRAVENTRICULAR CONDUCTION DELAY Summary: Abnormal ECG Electronically signed by Dominick Murphy 05/21/2022 08:39 Procedure Note Jeffrey Tan MD - 05/21/2022 CARDIOLOGY REPORT FACILITY: [facility] PATIENT NAME/: VITALY CASILLAS 1955 UNIT/AGE/GENDER: AGE: 67 YR GENDER: M UNIT NUMBER: [id number] ACCESSION NUMBER: [id number] DATE OF EXAM: 05/20/2022 17:02 EXAMINATION(S): ECG 12-LEAD FINAL REPORT Procedure: ELECTROCARDIOGRAM RESULT Heart Rate 56 P-R Interval 140 ms QRS Interval 110 ms QT Interval 468 ms QTC Interval 452 ms P [place] 22 deg QRS [place] 21 deg T Wave [place] 7 deg DATE: 05/20/2022 17:02 SINUS BRADYCARDIA NONSPECIFIC INTRAVENTRICULAR CONDUCTION DELAY Summary: Abnormal ECG Electronically signed by Dominick Murphy 05/21/2022 08:39 Julio Wharton MD ECG ORDERABLES Final Result [place] [facility] * 20 min. EEG routine Normal Sleep (05/20/2022 2:58 PM EDT) Narrative [place] [facility] - 05/20/2022 2:58 PM EDT Tyree Donovan MD 05/20/2022 3:04 PM ADULT ELECTROENCEPHALOGRAM REPORT FACILITY: [facility] AGE/GENDER: 67 yr/o male PATIENT NAME/: Vitaly Casillas 1955 PROCEDURE DATE: 05/20/2022 EXAM# : [id number] CLINICAL INFORMATION: AMS RECORDING CONDITIONS: This is [...] diagnosis of seizures. Tyree Donovan II, MD [facility] Lissette Richardshodaryl DO NEUROLOGY ORDERABLES Fin al Result [place] [facility] * (ABNORMAL) .Urinalysis with microscopic, reflex culture (05/20/2022 6:34 AM EDT) Only the most recent of2 resultswithin the time period is included. Color-Urine Yellow 05/20/2022 7:02 AM [facility] Clarity-Urine Clear 05/20/2022 7:02 AM [facility] Specific [place] Urine 1.034(H) 1.005 - 1.030 (arb'U) 05/20/2022 7:02 AM [facility] Comment:Elevated specific gr avity may be seen when urine contains x ray contrast media, plasma expanders, and/or large amounts of glucose or protein. Correlate specific gravity findings to patient clinical history. pH-Urine 8.5 5.0 - 9.0 (pH) 05/20/2022 7:02 AM [facility] Protein-Urine 600(A) Negative mg/dL 05/20/2022 7:02 AM [facility] Glucose-Urine 50(A) Negative mg/dL 05/20/2022 7:02 AM [facility] Ketone-Urine Negative Negative mg/dL 05/20/2022 7:02 AM [facility] Bilirubin-Urine Negative Negative mg/dL 05/20/2022 7:02 AM [facility] Occult Blood-Urine 1+(A) Negative (arb'U) 05/20/2022 7:02 AM [facility] Nitrite-Urine Negative Negative (arb'U) 05/20/2022 7:02 AM [facility] Urobilinogen-Uri ne Normal Normal (EhrlichU)/ dL 05/20/2022 7:02 AM [facility] Leukocyte Esterase-Urine 25(A) Negative (arb'U) 05/20/2022 7:02 AM [facility] Source-Urine Urine De Los Santos Cath 05/20/2022 5:22 AM [facility] WBC-Urine 40(H) 0 - 3 (HPF) 05/20/2022 7:02 AM [facility] RBC-Urine 45(H) 0 - 2 (HPF) 05/20/2022 7:02 AM [facility] Squamous Epithelial-Urine <1 0 - 4 (HPF) 05/20/2022 7:02 AM [facility] Bacteria-Urine TRACE(A) None Seen (HPF) 05/20/2022 7:02 AM [facility] Mucus-Urine TRACE(A) None Seen (LPF) 05/20/2022 7:02 AM [facility] Transitional Epithelial-Urine <1 0 - 2 (HPF) 05/20/2022 7:02 AM [facility] Urine URINE SPECIMEN / Unknown 05/20/2022 6:34 AM EDT 05/20/2022 6:50 AM EDT us Luz Kumari MD URINE ORDERABLES Becca lynne Result [facility] ([id number]) [address] [place] [address] [facility] [address] [place] [address] * (ABNORMAL) Toxicology Screen, urine (05/20/2022 6:34 AM EDT) Amphetamines-Urine Scrn Negative Negative 05/20/2022 7:04 AM [facility] Comment: Screening cut off 500ng/mL. (note) Testing for medical purposes only. Positive results are not automatically confirmed. This assay has poor sensitivity for methylphenidate (eg Ritalin), a methylphenidate specific assay is needed to monitor compliance with these medications. Barbiturates-Urine Screen POSITIVE(A) Negative 05/20/2022 7:04 AM [facility] Comment: Screening cut off 200ng/mL. (note) Testing for medical purposes only. Positive results are not automatically confirmed. Benzodiazepines-Ur ine Screen POSITIVE(A) Negative 05/20/2022 7:04 AM [facility] Comment: Screening cut off 200ng/mL. (note) Testing for medical purposes only. Positive results are not automatically confirmed. Cannabinoids-Urine Screen Negative Negative 05/20/2022 7:04 AM [facility] Comment: Screening cut off 50ng/mL. (note) Testing for medical purposes only. Positive results are not automatically confirmed. Cocaine-Urine Screen Negative Negative 05/20/2022 7:04 AM [facility] Comment: Screening cut off 300ng/mL. (note) Testing for medical purposes only. Positive results are not automatically confirmed. Opiates-Urine Screen Negative Negative 05/20/2022 7:04 AM [facility] Comment: Screening cut off 300ng/mL. (note) [...] Kumari MD URINE ORDERABLES Becca lynne Result [facility] ([id number]) [address] [place] [address] [facility] [address] [place] [address] * Culture,Urine (05/20/2022 6:34 AM EDT) Special Requests Urine (arb'U) 05/23/2022 1:54 PM EDT [facility] Culture Final no growth 05/21/2022 9:32 AM EDT [facility] Urine 05/20/2022 6:34 AM EDT 05/20/2022 6:50 AM EDT us Luz Kumari MD MICROBIOLOGY - GENERA L ORDERABLES Final Result [facility] [address] [facility] [address] [place] [address] [facility] [address] [facility] [address] [place] [address] * (ABNORMAL) Lactic Acid (05/20/2022 4:33 AM EDT) Lactic Acid 2.2(H) 0.7 - 2.0 mmol/L 05/20/2022 4:38 AM EDT [facility] RT Serum BLOOD SPECIMEN FROM PATIENT / Unknown 05/20/2022 4:33 AM EDT 05/20/2022 4:32 AM EDT us Luz Kumari MD LAB BLOOD ORDERABLES Final Result [facility] RT [address] [place] [address], [facility] [phone] [facility] [address] [place] [address] * .Partial Thromboplastin Time (05/20/2022 4:33 AM EDT) Only the most recent of3 resultswithin the time period is included. Partial Thromboplastin Time 25.3 25.1 - 36.5 s 05/20/2022 5:06 AM EDT [facility] Comment: (note) Anticoagulants may alter the results [...] BLOOD ORDERABLES Final Result Performing Organization Address City/[facility]/ZIP Co de Phone Number [facility] ([id number]) [address] [place] [address] [address] * Troponin (05/20/2022 4:33 AM EDT) [facility] Troponin 0.012 0.000 - 0.028 ng/mL 05/20/2022 4:55 AM EDT [facility] Comment: (note) Levels >0.028 are greater than the 99th percentile and suggest possible need for clinical correlation and serial testing. Plasma BLOOD SPECIMEN FROM PATIENT / Unknown 05/20/2022 4:33 AM EDT 05/20/2022 4:33 AM EDT Luz Kumari MD LAB BLOOD ORDERABLES Final Result [facility] ([id number]) [address] [place] [address] [address] * (ABNORMAL) Urinalysis (05/20/2022 4:33 AM EDT) Only the most recent of2 resultswithin the time period is included. Color-Urine Light yellow 05/20/2022 5:03 AM [facility] Clarity-Urine Clear 05/20/2022 5:03 AM [facility] Specific [place] Urine 1.038(H) 1.005 - 1.030 (arb'U) 05/20/2022 5:03 AM [facility] Comment:Elevated specific gr avity may be seen when urine contains x ray contrast media, plasma expanders, and/or large amounts of glucose or protein. Correlate specific gravity findings to patient clinical history. pH-Urine 8.0 5.0 - 9.0 (pH) 05/20/2022 5:03 AM [facility] Protein-Urine >600(A) Negative mg/dL 05/20/2022 5:03 AM [facility] Glucose-Urine 50(A) Negative mg/dL 05/20/2022 5:03 AM [facility] Ketone-Urine Negative Negative mg/dL 05/20/2022 5:03 AM [facility] Bilirubin-Uri ne Negative Negative mg/dL 05/20/2022 5:03 AM [facility] Occult Blood-Urine 1+(A) Negative (arb'U) 05/20/2022 5:03 AM [facility] Nitrite-Urine Negative Negative (arb'U) 05/20/2022 5:03 AM [facility] Urobilinogen- Urine Normal Normal (EhrlichU)/ dL 05/20/2022 5:03 AM [facility] Leukocyte Esterase-Urin e Negative Negative (arb'U) 05/20/2022 5:03 AM [facility] Source-Urine Urine De Los Santos Cath 05/20/2022 3:45 AM [facility] Reflex Microscopic? Microscopic performed 05/20/2022 5:03 AM [facility] RBC-Urine 47(H) 0 - 2 (HPF) 05/20/2022 5:03 AM [facility] WBC-Urine 30(H) 0 - 3 (HPF) 05/20/2022 5:03 AM EDT [facility] Squamous Epithelial-Ur ine <1 0 - 4 (HPF) 05/20/2022 5:03 AM EDT [facility] Bacteria-Urin e TRACE(A) None Seen (HPF) 05/20/2022 5:03 AM EDT [facility] Urine URINE SPECIMEN / Unknown 05/20/2022 4:33 AM EDT 05/20/2022 4:55 AM EDT us Luz Kumari MD URINE ORDERABLES Becca lynne Result [facility] ([id number]) [address] [place] [address] [facility] [address] [place] [address] * Protime-INR (05/20/2022 4:33 AM EDT) Only the most recent of3 resultswithin the time period is included. Prothrombin Time 11.4 10.3 - 13.3 s 05/20/2022 5:06 AM EDT [facility] Comment: (note) Anticoagulants may alter the results of Laboratory Coagulation assays. New-generation anticoagulants such as direct Thrombin inhibitors (Dabigatran/Pradaxa, Argatroban, Bivalrudin) and direct/indirect factor Xa inhibitors (Rivaroxaban/Xarelto,Apixaban/Eliquis, Danaparoid/Orgaran, Fondaparinux/Arixtra) have been shown to affect the results of Laboratory Coagulation assays, creating falsely elevated or decreased values. Correlation with medication history is advised. INR 1.0 INR 05/20/2022 5:06 AM EDT [facility] Comment: INR Therapeutic Ranges: Low Intensity Range: 2.0-3.0 High Intensity Range: 3.0-4.5 Plasma BLOOD SPECIMEN FROM PATIENT / Unknown 05/20/2022 4:33 AM EDT 05/20/2022 4:33 AM EDT us Luz Kumari MD LAB BLOOD ORDERABLES Final Result [facility] ([id number]) [address] [place] [address] [id number] [place] [address] * (ABNORMAL) CK (05/20/2022 4:33 AM EDT) CK 28(L) 30 - 200 U/L 05/20/2022 4:58 AM EDT [facility] Plasma BLOOD SPECIMEN FROM PATIENT / Unknown 05/20/2022 4:33 AM EDT 05/20/2022 4:33 AM EDT Luz Kumari MD LAB BLOOD ORDERABLES Final Result Performing Organization Address City/[facility]/ZIP Co de Phone Number [facility] ([id number]) [address] [place] [address] [facility] [address] [place] [address] * XR Chest 1 Vw (05/20/2022 4:03 AM EDT) Only the most recent of3 resultswithin the time period is included. Anatomical Region Laterality Modality Chest [facility] Radiographic Imaging 05/20/2022 7:17 AM EDT Narrative 05/20/2022 7:19 AM EDT REVIEWING YOUR TEST RESULTS IN [facility] IS NOT A SUBSTITUTE FOR DISCUSSING THOSE RESULTS WITH YOUR HEALTH CARE PROVIDER. PLEASE CONTACT YOUR PROVIDER VIA [facility] TO DISCUSS ANY QUESTIONS OR CONCERNS YOU MAY HAVE REGARDING THESE TEST RESULTS. RADIOLOGY REPORT FACILITY: [facility] UNIT/AGE/GENDER: J.ICU IN AGE:67 Y SEX:M PATIENT NAME/: VITALY CASILLAS 1955 UNIT NUMBER: [id number] ACCESSION NUMBER: [id number] PORTABLE AP CHEST, SINGLE VIEW DATE: 05/20/2022 [...] - 05/20/2022 REVIEWING YOUR TEST RESULTS IN [facility] IS NOT A SUBSTITUTE FORDISCUSSING THOSE RESULTS WITH YOUR HEALTH CARE PROVIDER. PLEASE CONTACT YOUR PROVIDER VIA [facility] TO DISCUSS ANY QUESTIONS ORCONCERNS YOU MAY HAVE REGARDING THESE TEST RESULTS. RADIOLOGY REPORT FACILITY: [facility] UNIT/AGE/GENDER: J.ICU IN AGE:67 Y SEX:M PATIENT NAME/: VITALY CASILLAS 1955 UNIT NUMBER: [id number] ACCESSION NUMBER: [id number] PORTABLE AP CHEST, SINGLE VIEW DATE: 05/20/2022 [...] 716 us Luz Kumari MD IMG DIAGNOSTIC ABDOULIN G ORDERABLES Final Result * (ABNORMAL) Arterial Blood Gas (05/20/2022 3:56 AM EDT) Jaspreet Test POSITIVE (arb'U) 05/20/2022 3:57 AM EDT [facility] RT Temperature-AB G 37.0 37.0 Clara 05/20/2022 3:57 AM EDT [facility] RT pH-ABG 7.51(H) 7.35 - 7.45 PH 05/20/2022 3:57 AM EDT [facility] RT PCO2-ABG 38 35 - 48 mm(Hg) 05/20/2022 3:57 AM EDT [facility] RT PO2-ABG 128(H) 83 - 108 mm(Hg) 05/20/2022 3:57 AM EDT [facility] RT HCO3-ABG 30 22 - 30 mmol/L 05/20/2022 3:57 AM EDT [facility] RT MS79-EXA 31(H) 19 - 24 mmol/L 05/20/2022 3:57 AM EDT [facility] RT Base Excess-ABG 6.7(H) 0.0 - 3.0 mmol/L 05/20/2022 3:57 AM EDT [facility] RT O2 Sat-ABG 100.0(H) 95.0 - 98.0 % 05/20/2022 3:57 AM EDT [facility] RT Whole Blood 05/20/2022 3:56 AM EDT 05/20/2022 3:57 AM EDT us Luz Kumari MD LAB BLOOD ORDERABLES Final Result [facility] [address] [place] [address], [facility] [phone] [facility] [address] [place] [address] * Culture,Blood (05/20/2022 3:53 AM EDT) Only the most recent of2 resultswithin the time period is included. Culture No Growth 05/26/2022 5:54 AM EDT [facility] Blood ARTERIAL LINE SUBMITTED SPECIMEN / Unknown 05/20/2022 3:53 AM EDT 05/20/2022 3:58 AM EDT Comment:Central Line us Luz Kumari MD MICROBIOLOGY - GENERA L ORDERABLES Final Result [facility] [address] [facility] [address] [place] [address] [facility] [address] [facility] [address] [place] [address] * (ABNORMAL) Comprehensive Metabolic Panel (CMP) (05/20/2022 3:47 AM EDT) Only the most recent of2 resultswithin the time period is included. Sodium 140 136 - 145 mmol/L 05/20/2022 4:18 AM [facility] Comment: (note) Excess protein and/or lipids can falsely decrease sodium levels (pseudo hyponatremia). Potassium 4.0 3.5 - 5.1 mmol/L 05/20/2022 4:18 AM [facility] Chloride 104 98 - 107 mmol/L 05/20/2022 4:18 AM [facility] Comment: (note) Falsely elevated chloride levels can be seen in patients taking medications which contain bromide. Carbon Dioxide 28 22 - 29 mmol/L 05/20/2022 4:18 AM [facility] Anion Gap 8 5 - 13 (arb'U) 05/20/2022 4:18 AM [facility] Comment: (note) Calculation- Na - (Cl + CO2) Glucose 118 71 - 139 mg/dL 05/20/2022 4:18 AM [facility] Comment: (note) Reference range based on inpatient hypo/hyperglycemic treatment levels. A random glucose =/>200 is concerning for poor control. Blood Urea Nitrogen (BUN) 23 8 - 26 mg/dL 05/20/2022 4:18 AM [facility] Creatinine-Blood 0.45(L) 0.73 - 1.18 mg/dL 05/20/2022 4:18 AM [facility] BUN/Creatinine Ratio 51.1 RATIO 05/20/2022 4:18 AM T [facility] Estimated GFR >60 >60 /1.73 m2 05/20/2022 4:18 AM T [facility] Comment: (note) Results do not take into account body mass. Valid for patients 18 to 70 years of age. Estimated GFR if -Puerto Rican >60 >60 /1.73 m2 05/20/2022 4:18 AM T [facility] Comment: (note) Results do not take into account body mass. Valid for patients 18 to 70 years of age. Total Protein 6.2 6.2 - 8.0 g/dL 05/20/2022 4:18 AM T [facility] Albumin 3.3 3.2 - 4.6 g/dL 05/20/2022 4:18 AM [facility] Globulin 2.9 1.5 - 4.5 g/dL 05/20/2022 4:18 AM [facility] Albumin/Globulin Ratio 1.1 1.1 - 2.5 RATIO 05/20/2022 4:18 AM [facility] Calcium 9.0 8.4 - 10.2 mg/dL 05/20/2022 4:18 AM [facility] Total Bilirubin 0.3 0.2 - 1.2 mg/dL 05/20/2022 4:18 AM [facility] AST/SGOT 10 5 - 34 U/L 05/20/2022 4:18 AM [facility] ALT/SGPT 20 0 - 55 U/L 05/20/2022 4:18 AM [facility] Alkaline Phosphatase 77 40 - 150 U/L 05/20/2022 4:18 AM [facility] Plasma BLOOD SPECIMEN FROM PATIENT / Unknown 05/20/2022 3:47 AM EDT 05/20/2022 3:53 AM EDT us Luz Kumari MD LAB BLOOD ORDERABLES Final Result [facility] ([id number]) [address] [place] [address] [facility] [address] [place] [address] * Potassium (04/04/2022 12:16 PM EDT) Potassium 3.9 3.5 - 5.1 mmol/L 04/04/2022 12:35 PM EDT [facility] Plasma specimen (specimen) BLOOD SPECIMEN FROM PATIENT / Unknown 04/04/2022 12:16 PM EDT 04/04/2022 12:21 PM EDT us Abiodun Duran MD LAB BLOOD ORDERABLES Final R esult [facility] ([id number]) [address] [place] [address] [facility] [address] [place] [address] * MRI Brain Wo & W Con (04/03/2022 3:37 PM EDT) Anatomical Region Laterality Modality Head [facility] Magnetic Res onance Imaging 04/03/2022 4:11 PM EDT Narrative 04/03/2022 4:25 PM EDT REVIEWING YOUR TEST RESULTS IN [facility] IS NOT A SUBSTITUTE FOR DISCUSSING THOSE RESULTS WITH YOUR HEALTH CARE PROVIDER. PLEASE CONTACT YOUR PROVIDER VIA [facility] TO DISCUSS ANY QUESTIONS OR CONCERNS YOU MAY HAVE REGARDING THESE TEST RESULTS. RADIOLOGY REPORT FACILITY: [facility] UNIT/AGE/GENDER: J.ICU IN AGE:67 Y SEX:M PATIENT NAME/: VITALY CASILLAS 1955 UNIT NUMBER: [id number] ACCESSION NUMBER: [id number] MRI OF THE BRAIN WITH AND WITHOUT [...] - 04/03/2022 REVIEWING YOUR TEST RESULTS IN [facility] IS NOT A SUBSTITUTE FORDISCUSSING THOSE RESULTS WITH YOUR HEALTH CARE PROVIDER. PLEASE CONTACT YOUR PROVIDER VIA [facility] TO DISCUSS ANY QUESTIONS ORCONCERNS YOU MAY HAVE REGARDING THESE TEST RESULTS. RADIOLOGY REPORT FACILITY: [facility] UNIT/AGE/GENDER: Tracy.ICU IN AGE:67 Y SEX:M PATIENT NAME/: VITALY CASILLAS 1955 UNIT NUMBER: [id number] ACCESSION NUMBER: [id number] MRI OF THE BRAIN WITH AND WITHOUT [...] demonstrate mild symmetric volume loss. No abnormal [id number] identified within the suggest mesial temporal sclerosis. [...] 1624 1611 1611 us Lissette Flood DO [facility] [place] ORDERABLES Final Result * Procalcitonin (04/02/2022 10:08 AM EDT) Procalcitonin 0.13 0.1 - 0.5 ng/mL 04/02/2022 10:56 AM EDT [facility] Plasma BLOOD SPECIMEN FROM PATIENT / Unknown 04/02/2022 10:08 AM EDT 04/02/2022 10:13 AM EDT David Garcia MD LAB BLOOD ORDERABLES Final Resu lt [facility] ([id number]) [address] [place] [address] [facility] [address] [place] [address] * (ABNORMAL) Culture, Sputum/Gram Stain (04/02/2022 9:57 AM EDT) Gram Stain Few Squamous Epithelial Cells 04/02/2022 10:45 AM EDT [facility] Gram Stain Many WBC's 04/02/2022 10:45 AM EDT [facility] Gram Stain Many Gram Positive Cocci in Pairs and Chains and Clusters 04/02/2022 10:45 AM EDT [facility] Gram Stain Few Gram Negative Bacillus 04/02/2022 10:45 AM EDT [facility] Gram Stain Many Gram Negative Diplococci 04/02/2022 10:45 AM EDT [facility] Culture Methicillin resistant Staphylococcus aureus Heavy Growth(A) [...] aureus Methicillin resistant Cefazolin MURRAY <=4: Resistant us David Garcia MD MICROBIOLOGY - GENERAL ORDERABL ES Final Result [facility] [address] [facility] [address] [place] [address] [facility] [address] [place] [address] [facility] [address] [facility] [address] [place] [address] * (ABNORMAL) Hemoglobin A1C (04/02/2022 4:22 AM [...] DO LAB BLOOD ORDERABLES Final R esult [facility] [address] [facility] [address] [place] [address] [facility] [address] [facility] [address] [place] [address] * CT Head Wo Contrast (04/01/2022 6:38 PM EDT) Anatomical Region Laterality Modality Head Computed Tomogra phy 04/01/2022 6:51 PM EDT Narrative 04/01/2022 6:53 PM EDT REVIEWING YOUR TEST RESULTS IN [facility] IS NOT A SUBSTITUTE FOR DISCUSSING THOSE RESULTS WITH YOUR HEALTH CARE PROVIDER. PLEASE CONTACT YOUR PROVIDER VIA [employer] TO DISCUSS ANY QUESTIONS OR CONCERNS YOU MAY HAVE REGARDING THESE TEST RESULTS. RADIOLOGY REPORT FACILITY: [facility] UNIT/AGE/GENDER: J.ICU IN AGE:67 Y SEX:M PATIENT NAME/: VITALY CASILLAS 1955 UNIT NUMBER: [id number] ACCESSION NUMBER: [id number] DATE: 04/01/2022 HISTORY: Seizure, new-onset, no history [...] signed by: Magan Alcaraz M.D.> 04/01/20221851 1850 185 Procedure Note Magan Alcaraz MD - 04/01/2022 REVIEWING YOUR TEST RESULTS IN [facility] IS NOT A SUBSTITUTE FORDISCUSSING THOSE RESULTS WITH YOUR HEALTH CARE PROVIDER. PLEASE CONTACT YOUR PROVIDER VIA [employer] TO DISCUSS ANY QUESTIONS ORCONCERNS YOU MAY HAVE REGARDING THESE TEST RESULTS. RADIOLOGY REPORT FACILITY: [facility] UNIT/AGE/GENDER: J.ICU IN AGE:67 Y SEX:M PATIENT NAME/: VITALY CASILLAS 1955 UNIT NUMBER: [id number] ACCESSION NUMBER: [id number] DATE: 04/01/2022 HISTORY: Seizure, new-onset, no history [...] by: Magan Alcaraz M.D.> 04/01/20221851 1850 1850 [facility]iv[facility]juany [facility] DO [facility] [place] ORDERABLES Final Result * XR Abdomen Ap Only (04/01/2022 4:45 PM EDT) Anatomical Region Laterality Modality Abdomen [facility] Radiographic Imaging 04/01/2022 5:19 PM EDT Narrative 04/01/2022 5:23 PM EDT REVIEWING YOUR TEST RESULTS IN [facility] IS NOT A SUBSTITUTE FOR DISCUSSING THOSE RESULTS WITH YOUR HEALTH CARE PROVIDER. PLEASE CONTACT YOUR PROVIDER VIA [facility] TO DISCUSS ANY QUESTIONS OR CONCERNS YOU MAY HAVE REGARDING THESE TEST RESULTS. RADIOLOGY REPORT FACILITY: [facility] UNIT/AGE/GENDER: Tracy.ICU IN AGE:67 Y SEX:M PATIENT NAME/: VITALY CASILLAS 1955 UNIT NUMBER: [id number] ACCESSION NUMBER: [id number] EXAM: XR CHEST 1 VW, XR ABDOMEN [...] signed by: Nehemias Conley M.D.> 04/01/2022 1722 171 171 Procedure Note Nehemias Conley MD - 04/01/2022 REVIEWING YOUR TEST RESULTS IN [facility] IS NOT A SUBSTITUTE FORDISCUSSING THOSE RESULTS WITH YOUR HEALTH CARE PROVIDER. PLEASE CONTACT YOUR PROVIDER VIA [employer] TO DISCUSS ANY QUESTIONS ORCONCERNS YOU MAY HAVE REGARDING THESE TEST RESULTS. RADIOLOGY REPORT FACILITY: [facility] UNIT/AGE/GENDER: Tracy.ICU IN AGE:67 Y SEX:M PATIENT NAME/: VITALY CASILLAS 1955 UNIT NUMBER: [id number] ACCESSION NUMBER: [id number] EXAM: XR CHEST 1 VW, XR ABDOMEN [...] signed by: Nehemias Conley M.D.> 04/01/2022 1722 1718 1718 Carter Vital Karl DO IMG DIAGNOSTIC IMAGING ORDER SEB Final [...] Acidosis 05/20/2022 Other dysphagia 05/20/2022 Care Teams Asbestos Wire Finisher Relationship Specialty Start Date End Date John Paul Orellana MD [address] [place] [address] PCP - General Internal Medicine 04/03/22
--- OUTSIDE RECORDS SUMMARY | 2025-05-11 10:43 | XMS_ITS | Clinical Summary ---
Author Organization [facility] Address [address] [place] [address] Care Team Providers Care Lav Crewman Name Role Phone John Paul Orellana MD Primary Care Provider [phone] Allergies Active Allergy Reactions Criticality Noted Date [...] (04/20/2022): Added automatically from request for surgery [id number] Resolved Problems Problem Noted Date Diagnosed Date [...] drink first t clarita in the morning (EYE-SAFETY INSTRUCTOR) to steady your nerves or to get [...] A1C 10/18/202204/2022, 10/28/2021, 07/12/2020, Additional history exists [id number] Vaccine (3 - season) 2024 12/17/2020, 11/20/2020 [...] ORDERABLES Final R esult [facility] [address] [place] [address] * (ABNORMAL) Hemoglobin A1c (04/20/2022 11:09 AM [...] Adults <6.0% Children and Adolescents <7.5% Source: [place] [employer]. Standards of medical care in diabetes,2017. Diabetes Care.2017:40 (suppl 1):S1-S135. HbA1c assay performed by an ion-exchange chromatography method that is certified traceable to the DCCT. 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
--- OUTSIDE RECORDS SUMMARY | 2025-05-11 10:43 | XMS_ITS | Referral Summary ---
Author Organization [employer] ([place], [place], [place], [place]) Address [address] [place] [address] Care Team Providers Care Manager Business Information Name Role Phone Unavailable Primary Care Provider Unavailabl e Social History Tobacco Use Types Packs/Day Years Used Date Smoking Tobacco: Never Assessed Sex and Gender Information Value Date Recorded Sex Assigned at Not on file Legal Sex Male 5:38 PM CDT Gender Identity Not on file Sexual Orientation Not on file Plan of Treatment Not on file
--- OUTSIDE RECORDS SUMMARY | 2025-05-11 10:43 | XMS_ITS | Encounter Summary ---
Author Organization [facility] Address [address] [place] [address] Care Team Providers Care Dipper Operator Name Role Phone John Paul Orellana MD Primary Care Provider [phone] Encounter Details Date Type Department Care Team (Late st Contact Info) Description 04/21/2022 Lab Requisition [facility] [address] [place] [address] Delvis Dominguez MD [address] [facility] [address] [facility] [address] [place] [address] Encounter for general adult medical [...] drink first t clarita in the morning (EYE-EMBEDDED SOFTWARE DESIGN ENGINEER) to steady your nerves or to [...] GENERAL ORDERABLES Final Result [facility] [address] [place] [address] documented in this encounter Visit Diagnoses Diagnosis Encounter for general adult medical examination without abnormal findings documented in this encounter Additional Health Concerns Infection Onset Date Last Indicated Resolved Time MRSA 04/20/2022 05/28/2022 documented as of this encounter Care Teams Dipper Operator Relationship Specialty Start Date End Date John Paul Orellana MD [address] [place] [address] PCP - General 01/24/21 documented as of this encounter
--- OUTSIDE RECORDS SUMMARY | 2025-05-11 10:44 | XMS_ITS | Encounter Summary ---
Author Organization [employer] ([place], [place], [place], [place]) Address [address] [place] [address] Care Team Providers Care Licensed Investment Sales Assistant Name Role Phone Unavailable Primary Care Provider Unavailabl e Encounter Details Date Type Department Care Team (Late st Contact Info) Description 01/01/2022 Transcribed Document [facility] Family Medicine [address] [place] [address] ProviderDario MD [address], [place] [id number] Social History Tobacco Use Types Packs/Day Years [...]
--- OUTSIDE RECORDS SUMMARY | 2025-05-11 10:44 | XMS_ITS | Encounter Summary ---
Author Organization [employer] ([place], [place], [place], [place]) Address [address] [place] [address] Care Team Providers Care Sprinkler Repair Technician Name Role Phone Unavailable Primary Care Provider Unavailabl e Encounter Details Date Type Department Care Team (Late st Contact Info) Description 12/25/2021 Transcribed Document [facility] Family Medicine [facility] [address] ProviderDario MD [address], [place] [id number] Social History Tobacco Use Types Packs/Day Years Used Date Smoking Tobacco: Never Assessed Sex and Gender Information Value Date Recorded Sex Assigned at Not on file Legal Sex Male 5:38 PM CDT Gender Identity Not on file Sexual Orientation Not on file documented as of this encounter Miscellaneous Notes * Cerner Conversion Note - Historical ProviderMD - 12/25/2021 9:[address] [facility] [employer] [employer]ANG[employer] Charges Entered On: 12/25/2021 9:42 EDT Performed On: 12/25/2021 9:41 EDT by LUKE ACKERMAN SLP [facility] [employer] Charges Screen For Speech Therapy : 1 LUKE ACKERMAN SLP - 12/25/2021 9:41 EDT documented in this encounter Plan of Treatment Not on file documented as of this encounter Visit Diagnoses Not on filedocumented in this encounter
--- OUTSIDE RECORDS SUMMARY | 2025-05-11 10:44 | XMS_ITS | Encounter Summary ---
Author Organization [employer] ([place], [place], [place], [place]) Address [address] [place] [address] Care Team Providers Care Event Specialist Name Role Phone Unavailable Primary Care Provider Unavailabl e Encounter Details Date Type Department Care Team (Late st Contact Info) Description 01/01/2022 Transcribed Document [facility] [place] [address] [place] [address] ProviderDario MD [address] [place] [id number] Social History Tobacco Use Types Packs/Day Years [...] 01/01/2022 16:26 EDT Electronically signed by [facility] Conversion Marketing Forecaster Cerner at 12/29/2022 4:56 PM CDT documented in this encounter Plan of Treatment Not on file documented as of this encounter Visit Diagnoses Not on filedocumented in this encounter
--- OUTSIDE RECORDS SUMMARY | 2025-05-11 10:44 | XMS_ITS | Encounter Summary ---
Author Organization [employer] ([place], [place], [place], [place]) Address [address] [place] [address] Care Team Providers Care Biomedical Engineering Director Name Role Phone Unavailable Primary Care Provider Unavailabl e Encounter Details Date Type Department Care Team (Late st Contact Info) Description 01/01/2022 Transcribed Document [facility] [place] [address] [place] [address] ProviderDario MD [address] [place], [place] [id number] Social History Tobacco Use Types Packs/Day Years [...]
--- OUTSIDE RECORDS SUMMARY | 2025-05-11 10:44 | XMS_ITS | Encounter Summary ---
Author Organization [employer] ([place], [place], [place], [place]) Address [address] [place] [address] Care Team Providers Care Library Consultant Name Role Phone Unavailable Primary Care Provider Unavailabl e Encounter Details Date Type Department Care Team (Late st Contact Info) Description 12/24/2021 Transcribed Document [facility] [place] [facility] [place] [address] ProviderDario MD [address] [place], [place] [id number] Social History Tobacco Use Types Packs/Day Years [...] 14:04 EDT Chief Complaint : pt from [facility], direct admit, pt has been having seizures the past 2 days, no hx, seizures have been lasting >10mins. here for neuro evaluation. Had seizure activity during triage lasting >2 min Triage Date/Time : 12/24/2021 13:49 EDT BRITTNEY TORRES RN - 12/24/2021 13:49 EDT DCP GENERIC CODE Tracking Group : [facility] Tracking Acuity : 2 - Emergent [...] 14:04:45 EDT) Problems(Active) Back pain (SNOMED CT :200286634 ) Name of Problem: Back pain ; Recorder: Alondra Hughes RN; Confirmation: Confirmed ; Classification: Patient Stated ; Code: [id number] ; Contributor System: PowerChart ; Last Updated: 01/15/2016 8:18 EDT ; Life Cycle Date: 01/15/2016 ; Life Cycle Status: Active ; Vocabulary: SNOMED CT Diabetes mellitus type II (SNOMED CT :84156670 ) Name of Problem: Diabetes mellitus type II ; Recorder: Alondra Hughes RN; Confirmation: Confirmed ; Classification: Patient Stated ; Code: [id number] ; Contributor System: PowerChart ; Last Updated: 01/15/2016 8:18 EDT ; Life Cycle Date: 01/15/2016 ; Life Cycle Status: Active ; Vocabulary: SNOMED CT Hyperlipidemia (SNOMED CT :62302819 ) Name of Problem: Hyperlipidemia ; Recorder: Alondra Hughes RN; Confirmation: Confirmed ; Classification: Patient Stated ; Code: [id number] ; Contributor System: PowerChart ; Last Updated: 01/15/2016 8:18 EDT ; Life Cycle Date: 01/15/2016 ; Life Cycle Status: Active ; Vocabulary: SNOMED CT Hypertension (SNOMED CT :90338636 ) Name of Problem: Hypertension ; Recorder: Alondra Hughes RN; Confirmation: Confirmed ; Classification: Patient Stated ; Code: 13140059 ; Contributor System: PowerChart ; Last Updated: 01/15/2016 8:16 EDT ; Life Cycle Date: 01/15/2016 ; Life Cycle Status: Active ; Vocabulary: SNOMED CT Restless legs syndrome (SNOMED CT :89246000 ) Name of Problem: Restless legs syndrome ; Recorder: Alondra Hughes RN; Confirmation: Confirmed ; Classification: Patient Stated ; Code: [id number] ; Contributor System: PowerChart ; Last Updated: 01/15/2016 8:18 EDT ; Life Cycle Date: 01/15/2016 ; Life Cycle Status: Active ; Vocabulary: SNOMED CT Seizure (SNOMED CT :520534862 ) Name of Problem: Seizure ; Recorder: Alondra Hughes RN; Confirmation: Confirmed ; Classification: Patient Stated ; Code: [id number] ; Contributor System: Zoodig ; Last Updated: 01/15/2016 8:18 EDT ; Life Cycle Date: 01/15/2016 ; Life Cycle Status: Active ; Vocabulary: SNOMED CT Diagnoses(Active) Seizure Date: 12/24/2021 ; Diagnosis Type: Reason For Visit ; Confirmation: Complaint of ; Clinical Dx: Seizure ; Classification: Medical ; Clinical Service: Non-Specified ; Code: PNED ; Probability: 0 ; Diagnosis Code: [id number] Seizure - Recurrent Date: 12/24/2021 ; Diagnosis Type: Reason For Visit ; Confirmation: Complaint of ; Clinical Dx: Seizure - Recurrent ; Classification: Medical ; Clinical Service: Non-Specified ; Code: PNED ; Probability: 0 ; Diagnosis Code: [id number] ED Height and Weight Height Source : Stated Height Entry Format : Spink Height, Feet : 5 ft(Converted to: 152 cm, 60 Inch) Height, Inches : 10 Inch(Converted to: 0 ft 10 Inch, 25.40 cm) Clinical Height : 177.8 cm Weight Source, ED : Critical estimated dosing weight Weight Entry Format : Spink Weight, Pounds : 180 lb Clinical Dosing Weight : 81.82 kg Body Surface Area (BSA) : 2 m2 Body Mass Index : 25.9 kg/m2 (HI) Heber Body Weight (IBW) : 72.02 kg BRITTNEY TORRES RN - 12/24/2021 13:49 EDT documented in this encounter Plan of Treatment Not on file documented as of this encounter Visit Diagnoses Not on filedocumented in this encounter
--- OUTSIDE RECORDS SUMMARY | 2025-05-11 10:44 | XMS_ITS | Encounter Summary ---
Author Organization [employer] ([place], [place], [place], [place]) Address [address] [place] [address] Care Team Providers Care Director Sanitation Bureau Name Role Phone Unavailable Primary Care Provider Unavailabl e Encounter Details Date Type Department Care Team (Late st Contact Info) Description 01/01/2022 Transcribed Document [facility] [place] Family Medicine [address] [place] [address] ProviderDario MD [address] [place], [place] [id number] Social History Tobacco Use Types Packs/Day Years [...] Non Emp RN - 01/01/2022 6:37 EDT Electronically signed by Oelna Cruz Conversion Supervisor Bottle House Cleaners Cerner at 12/29/2022 4:52 PM CDT documented in this encounter Plan of Treatment Not on file documented as of this encounter Visit Diagnoses Not on filedocumented in this encounter
--- OUTSIDE RECORDS SUMMARY | 2025-05-11 10:44 | XMS_ITS | Encounter Summary ---
Author Organization [employer] ([place], [place], [place], [place]) Address [address] [place] [address] Care Team Providers Care Laundry Folder Name Role Phone Unavailable Primary Care Provider Unavailabl e Encounter Details Date Type Department Care Team (Late st Contact Info) Description 12/24/2021 Transcribed Document [facility] Radiology [address] [place] [address] Anali South MD [address] [facility] [address] [place] [address] Social History Tobacco Use Types [...] HPI: 66 YO male who presented to [facility] from [facility] secondary recurrent seizure activity. He is known to our practice from [facility]. Pt has hx of seizures, DM II, HTN, HLD, functional quadraplegia. It appears that pt had increased seizure activity in 10/2021 when at [facility] (or may have led to him going there). Keppra was added to lamictal at that time, then was hospitalized again at [facility] and dilantin was added to regimen. [...] recurrent seizures he was transferred here to [facility] for further work up. No records from [facility] ER were seen on pts chart. Pt says he has felt feverish. No cp, soa. Has had occ cough. Concerned about sacral/buttock wound. States that previously at it was almost healed now it is bad again. C/o pain around right parotid gland. States it was found at [facility]. States they have been swabbing his mouth with lemon juice, that helped at first but now swollen. Pt has dentures but not with him. At [facility] he was started on azithromycin and prednisone for parotid swelling. Prior hospitalizations: 11/2721-12/18/21 - [facility] - pt was unrepsonsive at and went to ER. Dc summary said [...] also of 50 mg q8h. 08/2021 - [facility] -- Right foot gangrene, s/p [...] no cp : FC put in at [facility] at some point previously; no dysuria Neuro: [...] II -SSI -check a1c, FSBS ACHS Dysphagia -CUSTOMER OPERATIONS REPRESENTATIVE eval -thickened liquids and pureed diet for now. CAD s/p cardiac stent in past. PAD s/p right AKA. DVT prophylaxis -eliquis Assessment and treatment plan made in conjunction with Daphne South MD documented in this encounter Plan of Treatment Not on file documented as of this encounter Visit Diagnoses Not on filedocumented in this encounter
--- OUTSIDE RECORDS SUMMARY | 2025-05-11 10:44 | XMS_ITS | Encounter Summary ---
Author Organization [facility] Address [address] [place] [address] Care Team Providers Care Pin Machine Tender Name Role Phone Gustavo Leggett MD Primary Care Provider [phone] Reason for Visit * Reason Onset Date Comments SURGERY QUESTIONS 02/08/2020 Encounter Details Date Type Department Care Team (Late st Contact Info) Description 02/08/2020 Telephone [facility] NEUROSURGERY [address] [facility] [address] [place] [address] Tyree Tan MD SURGERY QUESTIONS [...] documented as of this encounter Care Teams Pin Machine Tender Relationship Specialty Start Date End Date Gustavo Leggett MD [address] [facility] [address] [place] [address] PCP - General Adolescent Medicine 07/14/23 documented as of this encounter
--- OUTSIDE RECORDS SUMMARY | 2025-05-11 10:44 | XMS_ITS | Encounter Summary ---
Author Organization [employer] ([place], [place], [place], [place]) Address [address] [place] [address] Care Team Providers Care Horizontal Boring Mill Operator Name Role Phone Unavailable Primary Care Provider Unavailabl e Encounter Details Date Type Department Care Team (Late st Contact Info) Description 12/24/2021 Transcribed Document [facility] [place] [facility] [place] [address] ProviderDario MD [address] [place], [place] [address] Social History Tobacco Use Types Packs/Day Years [...] hyperlipidemia, diabetes who was transferred today from [facility] for recurrent seizures. The patient himself is a vague historian, but does provide the history that he was admitted to [facility] in October for intractable seizures and started on 2 new antiepileptic medications at that time. He could not tell me which antiepileptic medications were new, although I believe that they are Keppra and Dilantin. He apparently has been on Lamictal for a longer period of time. He tells me he has had seizures for 8-9 years and follows with a neurologist in [place] whom I believe is named Dr. Carter. [...] here. Recently, he has been residing at [facility] which is a rehab facility following his admission to [facility] in October. He tells me that typically he lives at home fairly independently, although does have home health services. Presently, he is denying headache or any other significant complaints. PAST MEDICAL HISTORY: Seizure disorder, type 2 diabetes, hypertension, hyperlipidemia, right wxvds-gum-jjlp amputation in August 2021 for infection. HOME [...] labored. EXTREMITIES: Again, there is a right pufes-dfk-agtb amputation. Left leg does not show any [...] weeks. 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 Neurology will continue to follow closely. /[id number] MD KIYA Monique/ALECIA / KIYA / DARIO /[id number] documented in this encounter Plan of Treatment Not on file documented as of this encounter Visit Diagnoses Not on filedocumented in this encounter
--- OUTSIDE RECORDS SUMMARY | 2025-05-11 10:44 | XMS_ITS | Encounter Summary ---
Author Organization [employer] ([place], [place], [place], [place]) Address [address] [place] [address] Care Team Providers Care Political Science Faculty Member Name Role Phone Unavailable Primary Care Provider Unavailabl e Encounter Details Date Type Department Care Team (Late st Contact Info) Description 01/01/2022 Transcribed Document [facility] [place] [facility] [place] [address] ProviderDario MD [address] [place], [place] [id number] Social History Tobacco Use Types Packs/Day Years [...] Discharge order Discharged to, Therapy : Unit, [facility] Discharge Summary Comment, PT : Pt being [...] DEVAN RALPH, PT - 01/01/2022 16:30 EDT It Training Specialist Goals Mobility/Bed Mobility LTG PT Grid Goal [...]
--- OUTSIDE RECORDS SUMMARY | 2025-05-11 10:44 | XMS_ITS | Encounter Summary ---
Author Organization [employer] ([place], [place], [place], [place]) Address [address] [place] [address] Care Team Providers Care General Pediatrician Name Role Phone Unavailable Primary Care Provider Unavailabl e Encounter Details Date Type Department Care Team (Late st Contact Info) Description 12/31/2021 Transcribed Document [facility] [place] [address] [place] [address] ProviderDario MD [address] [place], [place] [id number] Social History Tobacco Use Types Packs/Day Years [...] On: 12/31/2021 8:31 EDT by Idalia Watson, Director Radiation Oncology Nutrition Assessment Nutrition Assessment Reason : Follow Up Idalia Watson, Director Radiation Oncology - 12/31/2021 8:31 EDT Current Nutrition Regimen Comment : 12/31: mod f/u. Ceramic Tile Setter visited pt who reported he is awaiting discharge today, per MD discharge is pending pre-cert. Pt stated he eats 50-100% of all of his meals and drinks all of his Glucerna. He also reported that he drinks the orange Gianni but does not like the fruit punch, corporate development intern to order. Pt was very pleasant and said he is willing to do whatever is needed to get his wounds healing. 12/26: Automatic consult d/t PU. Pt is a 66 y/o M admitted for recurrent seizure activity, s/p 19 min seizure at SNF. Neurology following, on EEG monitoring. Pt had PU at previous rehab facility but noted has been getting worse. PRINTED CIRCUIT BOARDS CONTACT PRINTER consulted for h/o dysphagia, okay for regular/thin [...] Nutrient Needs Comment : protein Idalia Watson, Director Radiation Oncology - 12/31/2021 14:28 EDT Nutrition Interventions Meals and Snacks : Carbohydrate-modified diet Nutrition Supplement Therapy : Commercial beverage Idalia Watson, Director Radiation Oncology - 12/31/2021 14:28 EDT Monitoring/Evaluation Energy Intake : Total energy intake Food Intake : Amount of food Protein Intake : Total protein Weight Status : Weight Maintanence Gastrointestinal Function : Bowel Function Integumentary : Pressure Ulcer Status Idalia Watson, Director Radiation Oncology - 12/31/2021 14:28 EDT Nutrition Recommendations Dietitian Recommendations : 1. Continue 60 gm diet +Glucerna BID and Gianni BID. Goal: Intakes 50% or greater 2. Monitor wt 1x/wk *corporate development intern to order new Goal: No significant wt loss 3. Monitor BG, adjust insulin prn Goal: 70-140 mg/dL Risk: Moderate Lori Moon, Dietitian - 12/31/2021 15:16 EDT Nutrition Care Level : Moderate Idalia Watson, Director Radiation Oncology - 12/31/2021 14:28 EDT Electronically signed by Anthony [facility] Conversion Master Steam Yacht Cerner at 12/29/2022 4:41 PM CDT documented in this encounter Plan of Treatment Not on file documented as of this encounter Visit Diagnoses Not on filedocumented in this encounter
--- OUTSIDE RECORDS SUMMARY | 2025-05-11 10:44 | XMS_ITS | Encounter Summary ---
Author Organization [employer] ([place], [place], [place], [place]) Address [address] [place] [address] Care Team Providers Care Facility Maintenance Mechanic Name Role Phone Unavailable Primary Care Provider Unavailabl e Encounter Details Date Type Department Care Team (Late st Contact Info) Description 12/30/2021 Transcribed Document [facility] [place] [facility] [place] [address] ProviderDario MD [address] [place], [place] [id number] Social History Tobacco Use Types Packs/Day Years [...] 12/30/2021 13:25 EDT by Vaishnavi Cunha V, Coach Mechanic Nuclear Powerplant Mechanic Helper Care Management Progress Note Discharge Arrangements : [...] Multidisciplinary Rounds? : Yes Vaishnavi Cunha V Coach Mechanic Nuclear Powerplant Mechanic Helper - 12/30/2021 13:25 EDT Narrative Progress Note [...] need to reschedule transportation. DCP-Transfer back to [facility] pending insurance precert approved. [facility] ambulance scheduled tentively for 7pm om 12/31 in case insurance precert is approved. Vaishnavi Cunha V Coach Mechanic Nuclear Powerplant Mechanic Helper - 12/30/2021 13:31 EDT Historical Progress Note : Patient is medically ready for discharge. CM sent updates to [facility]. [facility] intiated insurance precert today. DCP-Transfer back to [facility] when insurance precert is approved. [facility] ambulance scheduled tentively for 6pm om 12/30 in case insurance precert is approved. Vaishnavi Cunha V Coach Mechanic Nuclear Powerplant Mechanic Helper - 12/29/21 12:04:25 Patient is medically ready for discharge. Cm sent updates to [facility]. CM sent message to Lisandra from signature asking for precert with insurance to be started as soon as possible. Cm scheduled [facility] for 6 pm 12/29 if bed is available and precert obtained. [facility] will need to be changed if patient is not approved to go. CM will continue to follow. CALIXTO MCCABE Coach Mechanic-Ski Patrol - 12/28/21 13:59:37 Vaishnavi Cunha V Coach Mechanic Nuclear Powerplant Mechanic Helper - 12/30/2021 13:25 EDT Electronically signed by Anthony [facility] Conversion Tricot Knitting Machine Operator Cerner at 12/29/2022 4:59 PM CDT documented in this encounter Plan of Treatment Not on file documented as of this encounter Visit Diagnoses Not on filedocumented in this encounter
--- OUTSIDE RECORDS SUMMARY | 2025-05-11 10:44 | XMS_ITS | Encounter Summary ---
Author Organization [facility] Address [address] [place] [address] Care Team Providers Care Car Driver Name Role Phone Gustavo Leggett MD Primary Care Provider + [phone] Reason for Visit * Reason Onset Date Comments [facility] AND RX REFILL 08/12/2020 Encounter Details Date Type Department Care Team (Late st Contact Info) Description 08/12/2020 Telephone [facility] NEUROS[facility]GERY [address] [facility] [address] [place] [address] Tra Gregg PA-C [address] [facility] [address] [place] [address] [facility] - [facility] HE[facility] AND [...] 9:05 AM EST Office note faxed to [employer] ([phone]). * Telephone Encounter - Betty Ramires MA - 08/12/2020 1:14 PM EST Lex: 02/15/2020 Diazepam 5MG 1954 60 30 [facility] 2 03/09/2020 Diazepam 5MG 1954 60 30 [facility] 2 04/12/2020 Diazepam 5MG 1954 60 30 [facility] 2 05/09/2020 Diazepam 5MG 1954 90 30 [facility] 2 06/10/2020 Diazepam 5MG 1954 60 20 [facility] 2 07/18/2020 Diazepam 5MG 1954 30 15 [facility] 1 * Telephone Encounter - Francisca Jensen [...] HE HAS FOUR LEFT. HIS PHARMACY IS [facility] IN [place], [place]. PLEASE ADVISE. SINA CAN BE REACHED AT [phone], ASK FOR BRANDEE OR ABEBE. THE PATIENT CAN BE REACHED AT [phone] THANK YOU! documented in this encounter Plan [...] documented as of this encounter Care Teams Car Driver Relationship Specialty Start Date End Date Gustavo Leggett MD [address] [place] [address] PCP - General Adolescent Medicine 07/14/23 documented as of this encounter
--- OUTSIDE RECORDS SUMMARY | 2025-05-11 10:44 | XMS_ITS | Encounter Summary ---
Author Organization [employer] ([place], [place], [place], [place]) Address [address] [place] [address] Care Team Providers Care Phosphoric Acid Supervisor Name Role Phone Unavailable Primary Care Provider Unavailabl e Encounter Details Date Type Department Care Team (Late st Contact Info) Description 12/24/2021 Transcribed Document [facility] [place] Family Medicine [address] [place] [address] ProviderDario MD [address] [place], [place] [id number] Social History Tobacco Use Types Packs/Day Years [...] 15:16 EDT by Juani Torrez Emergency Room Shell Grader ED Event Note ED Event Date/Time : 12/24/2021 14:58 EDT ED Description of Event : Dr. South commercial lines account assistant aware of the patient Juani Torrez Emergency Room Shell Grader - 12/24/2021 15:16 EDT documented in this encounter Plan of Treatment Not on file documented as of this encounter Visit Diagnoses Not on filedocumented in this encounter
--- OUTSIDE RECORDS SUMMARY | 2025-05-11 10:44 | XMS_ITS | Encounter Summary ---
Author Organization [employer] ([place], [place], [place], [place]) Address [address] [place] [address] Care Team Providers Care Adjunct Teacher Name Role Phone Unavailable Primary Care Provider Unavailabl e Encounter Details Date Type Department Care Team (Late st Contact Info) Description 12/31/2021 Transcribed Document [facility] [place] [address] [place] [address] ProviderDario MD [address] [place], [place] [id number] Social History Tobacco Use Types Packs/Day Years Used Date Smoking Tobacco: Never Assessed Sex and Gender Information Value Date Recorded Sex Assigned at Not on file Legal Sex Male 5:38 PM CDT Gender Identity Not on file Sexual Orientation Not on file documented as of this encounter Miscellaneous Notes * Cerner Conversion Note - Historical ProviderMD - 12/31/2021 2:00 AM CDT Enterprise Manager Details Entered On: 12/31/2021 2:31 EDT [...]
--- OUTSIDE RECORDS SUMMARY | 2025-05-11 10:44 | XMS_ITS | Encounter Summary ---
Author Organization [employer] ([place], [place], [place], [place]) Address [address] [place] [address] Care Team Providers Care Exercise Physiology Professor Name Role Phone Unavailable Primary Care Provider Unavailabl e Encounter Details Date Type Department Care Team (Late st Contact Info) Description 12/24/2021 Transcribed Document [facility] [place] [address] [place] [address] ProviderDario MD [address] [place], [place] [id number] Social History Tobacco Use Types Packs/Day Years [...]
--- OUTSIDE RECORDS SUMMARY | 2025-05-11 10:44 | XMS_ITS | Encounter Summary ---
Author Organization [employer] ([place], [place], [place], [place]) Address [address] [place] [address] Care Team Providers Care Collision Worker Name Role Phone Unavailable Primary Care Provider Unavailkatharine e Encounter Details Date Type Department Care Team (Late st Contact Info) Description 12/24/2021 Transcribed Document [facility] [place] Medicine [facility] [place] [address] ProviderDario MD [address] [place], [place] [id number] Social History Tobacco Use Types Packs/Day Years [...] MENDOZA OT Student - 12/26/2021 16:00 EDT Residential Goals, OT Grooming LTG Grid Goal #1 [...] MENDOZA OT Student - 12/26/2021 16:00 EDT [facility] OT Charges OT Eval Moderate Complexity : 1 OT Ther Activities Ea 15 Min : 1 LIANG HAWLEY OTR/Silva - 12/26/2021 16:24 EDT documented in this encounter Plan of Treatment Not on file documented as of this encounter Visit Diagnoses Not on filedocumented in this encounter
--- OUTSIDE RECORDS SUMMARY | 2025-05-11 10:44 | XMS_ITS | Encounter Summary ---
Author Organization [employer] ([place], [place], [place], [place]) Address [address] [place] [address] Care Team Providers Care Rib Cloth Knitter Name Role Phone Unavailable Primary Care Provider Unavailabl e Encounter Details Date Type Department Care Team (Late st Contact Info) Description 01/01/2022 Transcribed Document [facility] [place] Family Medicine [address] [place] [address] ProviderDario MD [address], [place] [id number] Social History Tobacco Use Types Packs/Day Years Used Date Smoking Tobacco: Never Assessed Sex and Gender Information Value Date Recorded Sex Assigned at Not on file Legal Sex Male 5:38 PM CDT Gender Identity Not on file Sexual Orientation Not on file documented as of this encounter Miscellaneous Notes * Cerner Conversion Note - Historical ProviderMD - 01/01/2022 2:00 AM CDT Mattress Weaver Details Entered On: 01/01/2022 1:24 EDT Performed [...]
--- OUTSIDE RECORDS SUMMARY | 2025-05-11 10:44 | XMS_ITS | Encounter Summary ---
Author Organization [employer] ([place], [place], [place], [place]) Address [address] [place] [address] Care Team Providers Care Final Inspector Name Role Phone Unavailable Primary Care Provider Unavailabl e Encounter Details Date Type Department Care Team (Late st Contact Info) Description 12/30/2021 Transcribed Document [facility] Radiology 1 [place] [address] Anali South MD [address] [facility] [address] [place] [address] Social History Tobacco Use Types [...] or apply Heel Medix boots Apply Aloe [place] 3 (clear) or Sensicare 3 (white Zinc) [...] HPI: 66 YO male who presented to [facility] from [facility] secondary recurrent seizure [...] recurrent seizures he was transferred here to [facility] for further work up. No records [...] dentures but not with him. At [facility] he was started on azithromycin and [...] and drinking well. Ready to d/c to [facility]. PE: Vitals Signs (last 24 [...] -12/25 - well controlled. A1c 6.4 Dysphagia -EXTENSION WORK DIRECTOR eval -thickened liquids and pureed diet for [...]
--- OUTSIDE RECORDS SUMMARY | 2025-05-11 10:44 | XMS_ITS | Encounter Summary ---
Author Organization [employer] ([place], [place], [place], [place]) Address [address] [place] [address] Care Team Providers Care Sole Leather Cutting Machine Operator Name Role Phone Unavailable Primary Care Provider Unavailabl e Encounter Details Date Type Department Care Team (Late st Contact Info) Description 12/24/2021 Transcribed Document [facility] [address] [place] [address] ProviderDario MD [address] [place], [place] [id number] Social History Tobacco Use Types Packs/Day Years [...] On: 12/24/2021 15:29 EDT by [facility] Phone Call for Consults Consult Reason : roselia has seen patient MERLYN OWENS [facility] - 12/26/2021 4:23 EDT documented in this encounter Plan of Treatment Not on file documented as of this encounter Visit Diagnoses Not on filedocumented in this encounter
--- OUTSIDE RECORDS SUMMARY | 2025-05-11 10:44 | XMS_ITS | Encounter Summary ---
Author Organization [employer] ([place], [place], [place], [place]) Address [address] [place] [address] Care Team Providers Care Director Software Name Role Phone Unavailable Primary Care Provider Unavailabl e Encounter Details Date Type Department Care Team (Late st Contact Info) Description 12/31/2021 Transcribed Document [facility] [place] [facility] [place] [address] ProviderDario MD [address] [place], [place] [phone] Social History Tobacco Use Types Packs/Day Years [...] On: 12/31/2021 8:44 EDT by CINTHYA RIVERA RN-Hook TenderWheel Shop Supervisor Progress Note Discharge Arrangements : Patient Post-Acute [...] Patient Patient Discharge Goal : intermediate facility CINTHYA RIVERA RN-Hook Tender - 12/31/2021 8:44 EDT Narrative Progress Note Narrative Progress Note : updated F.C. with pt/ot notes via [facility] in order to facilitate precert. Historical Progress Note : HD#6 ELOS-4 RAR-moderate CM sent PT/OT updates to [facility] for insurance precert approval. CM rescheduled patient' s [facility] transport Patient is medically ready for discharge. CM sent updates to [facility]. [facility] intiated insurance precert today. DCP-Transfer back to [facility] when insurance precert is approved. [facility] ambulance scheduled tentively for 6pm om 12/30 in case insurance precert is approved. Vaishnavi Cunha V Tax Credit Leasing Consultant Store Administrative Assistant - 12/30/21 13:29:12 HD#6 ELOS-4 RAR-moderate CM sent PT/OT updates to [facility] for insurance precert approval. CM rescheduled patient's [facility] ambulance transport to Wednesday, 12/31 at 7pm. Per Lisandra with [facility], transport time is ok since he is returning there. If precert isn't approved, CM will need to reschedule transportation. DCP-[facility] pending insurance precert approved. [facility] ambulance scheduled tentively for 7pm om 12/31 in case insurance precert is approved. Vaishnavi Cunha V Tax Credit Leasing Consultant Store Administrative Assistant - 12/30/21 13:33:56 Patient is medically ready for discharge. CM sent updates to [facility]. [facility] [place] intiated insurance precert today. DCP-Transfer back to [facility] when insurance precert is approved. [facility] ambulance scheduled tentively for 6pm om 12/30 in case insurance precert is approved. Vaishnavi Cunha V Tax Credit Leasing Consultant Store Administrative Assistant - 12/29/21 12:04:25 Patient is medically ready [...] CM will continue to follow. CALIXTO MCCABE Tax Credit Leasing Consultant-Medicare Biller - 12/28/21 13:59:37 CINTHYA RIVERA, RN-Hook Tender - 12/31/2021 8:44 EDT Electronically signed by [facility] Conversion Nurse Auditor Cerner at 12/29/2022 4:46 PM CDT documented in this encounter Plan of Treatment Not on file documented as of this encounter Visit Diagnoses Not on filedocumented in this encounter
--- OUTSIDE RECORDS SUMMARY | 2025-05-11 10:44 | XMS_ITS | Encounter Summary ---
Author Organization [employer] ([place], [place], [place], [place]) Address [address] [place] [address] Care Team Providers Care Grape Picker Name Role Phone Unavailable Primary Care Provider Unavailabl e Encounter Details Date Type Department Care Team (Late st Contact Info) Description 12/31/2021 Transcribed Document [facility] Radiology 1 [place] [address] Anali South MD [address] [address] Social History Tobacco Use Types [...] or apply Heel Medix boots Apply Aloe [place] 3 (clear) or Sensicare 3 (white Zinc) [...] 66 YO male who presented to [facility] from [facility] secondary recurrent seizure activity. He is known to our practice from [facility]. Pt has hx of seizures, DM II, HTN, HLD, functional quadraplegia. It appears that pt had increased seizure activity in 10/2021 when at [facility] (or may have led to him going there). Keppra was added to lamictal at that time, then was hospitalized again at [facility] and dilantin was added to regimen. Despite med changes pt has continued to have seizures. It appears dilantin was low and provider had plans to start titration at [facility]. Pt had seizure for 19 min at [facility] yesterday and was still having seizure when transported by EMS. O2 sat was starting to drop. Previously he had had a seizure over 10 min. Do to recurrent seizures he was transferred here to [facility] for further work up. No records from [facility] ER were seen on pts chart. Pt says he has felt feverish. No cp, soa. Has had occ cough. Concerned about sacral/buttock wound. States that previously at [facility] it was almost healed now it is bad again. C/o pain around right parotid gland. States it was found at [facility]. States they have been swabbing his mouth with lemon juice, that helped at first but now swollen. Pt has dentures but not with him. At [facility] he was started on azithromycin [...] -12/25 - well controlled. A1c 6.4 Dysphagia -FIBER OPTICS ENGINEER eval -thickened liquids and pureed diet for [...]
--- OUTSIDE RECORDS SUMMARY | 2025-05-11 10:44 | XMS_ITS | Encounter Summary ---
Author Organization [employer] ([place], [place], [place], [place]) Address [address] [place] [address] Care Team Providers Care Electronics Instructor Name Role Phone Unavailable Primary Care Provider Unavailabl e Encounter Details Date Type Department Care Team (Late st Contact Info) Description 01/01/2022 Transcribed Document [facility] [place] [address] [place] [address] ProviderDario MD [address] [place], [place] [address] Social History Tobacco Use Types Packs/Day Years [...]
--- OUTSIDE RECORDS SUMMARY | 2025-05-11 10:44 | XMS_ITS | Encounter Summary ---
Author Organization [email or web address] ([place], [place], [place], [place]) Address [address] [place] [address] Care Team Providers Care Lumber Sorter Name Role Phone Unavailable Primary Care Provider Unavailabl e Encounter Details Date Type Department Care Team (Late st Contact Info) Description 12/31/2021 Transcribed Document [facility] [place] [address] [place] [address] ProviderDario MD [address] [place], [place] [phone] Social History Tobacco Use Types Packs/Day Years [...]
--- OUTSIDE RECORDS SUMMARY | 2025-05-11 10:44 | XMS_ITS | Encounter Summary ---
Author Organization [employer] ([place], [place], [place], [place]) Address [address] [place] [address] Care Team Providers Care Securities Teller Name Role Phone Unavailable Primary Care Provider Unavailabl e Encounter Details Date Type Department Care Team (Late st Contact Info) Description 12/24/2021 Transcribed Document [facility] [place] [facility] [place] [address] ProviderDario MD [address], [place] [phone] Social History Tobacco Use Types Packs/Day Years [...] Communication Barrier : None Primary Language : Solomon Islander Any Spiritual/Cultural Needs or Requests : No Currently in Unsafe Situation : No HERNANDEZ FALCON RN - 12/24/2021 14:24 EDT Social Habits Smoking Status : Former smoker, quit more than 30 days ago Smokeless Tobacco Status : Never Desires Tobacco Cessation Calc : 0 HERNNADEZ FALCON RN - 12/24/2021 14:24 EDT Social [...] Gastrointestinal ED Gastrointestinal Assessment WDL : WDL HERNANDZE FALCON RN - 12/24/2021 14:24 EDT Integumentary Assessment Integumentary Assessment WDL : WDL with exceptions (Comment: pt has a pressure ulcer on his tailbone, will evaluate further [HERNANDEZ FALCON RN - 12/24/2021 14:24 EDT] ) HERNANDEZ FALCON RN - 12/24/2021 14:24 EDT Neurologic ASMT, ED Neurologic Assessment WDL : WDL with exceptions (Comment: pt is a direct admit from [facility] due to new onset seizures, pt does [...]
--- OUTSIDE RECORDS SUMMARY | 2025-05-11 10:44 | XMS_ITS | Encounter Summary ---
Author Organization [employer] ([place], [place], [place], [place]) Address [address] [place] [address] Care Team Providers Care Cooler Tender Name Role Phone Unavailable Primary Care Provider Unavailabl e Encounter Details Date Type Department Care Team (Late st Contact Info) Description 12/31/2021 Transcribed Document [facility] [place] Medicine [address] [place] [address] ProviderDario MD [address] [place], [place] [phone] Social History Tobacco Use Types Packs/Day Years [...] Health Plan: [employer] Policy Number: [id number] Authorization Number: Insurance Primary Name : [employer] Policy Number: [id number] Authorization Status-Primary : Certified in total Reference Number-Primary : [id number] Authorization Number-Primary : [id number] Number of Days Authorized-Primary : 11 Day(s) Authorized Service Begin Date-Primary : 12/24/2021 EDT Authorized Service End Date-Primary : 01/04/2022 EDT Authorization Comments-Primary : c/s clinicals faxed via [facility] 12/27-12/31 Historical Authorization Comments-Primary : Comment 1: cont stay approved per fax from [facility] 12/26/21 NRD 01/05/22 (CARMEN TRENT, Dental Instructor 12/26/2021 12:07) Comment 2: c/s clinicals faxed via [employer], auth remains under review on [facility] portal (DIONNE SCHAFFER RN-UTILIZATION MANAGEMENT REVIEW NON-EXEMPT 12/26/2021 09:20) Comment 3: Clinicals submitted on [facility] website for IP approval (JODY MUÑOZ RN 12/25/2021 08:50) DIONNE SCHAFFER RN-UTILIZATION MANAGEMENT REVIEW NON-EXEMPT - 12/31/2021 13:58 EDT documented in this encounter Plan of Treatment Not on file documented as of this encounter Visit Diagnoses Not on filedocumented in this encounter
--- OUTSIDE RECORDS SUMMARY | 2025-05-11 10:44 | XMS_ITS | Encounter Summary ---
Author Organization [employer] ([place], [place], [place], [place]) Address [address] [place] [address] Care Team Providers Care Assembler Tractor Name Role Phone Unavailable Primary Care Provider Unavailabl e Encounter Details Date Type Department Care Team (Late st Contact Info) Description 12/24/2021 Transcribed Document [facility] [facility] [address] [place] [address] ProviderDario MD [address] [place], [place] [address] Social History Tobacco Use Types Packs/Day Years [...] 15:53 EDT by Juani Torrez Emergency Room Medical Massage Therapist Phone Call for Consults Consult Phone Call/Page Attempt : First call Consult Reason : recurrent seizures Provider Service Notified Name : Neurology Physician Covering for Consult : CHAVA OCHOA MD-NORMA Date and Time Call Returned : 12/24/2021 15:53 EDT Consult, Additional Information : spoke with Chava combs taken Juani Torrez, Emergency Room Medical Massage Therapist - 12/24/2021 15:53 EDT documented in this encounter Plan of Treatment Not on file documented as of this encounter Visit Diagnoses Not on filedocumented in this encounter
--- OUTSIDE RECORDS SUMMARY | 2025-05-11 10:44 | XMS_ITS | Encounter Summary ---
Author Organization [employer] ([place], [place], [place], [place]) Address [address] [place] [address] Care Team Providers Care Wire Drawing Setter Name Role Phone Unavailable Primary Care Provider Unavailabl e Encounter Details Date Type Department Care Team (Late st Contact Info) Description 01/01/2022 Transcribed Document [facility] [place] [facility] [place] [address] ProviderDario MD [address] [place] [address] Social History Tobacco Use Types [...] these instructions at home: Medicines ??? Take zswq-tsy-cgobuvw and prescription medicines only as told by [...] medicines are used to treat seizures. Take pqfm-lrf-[id number] and prescription medicines only as told by your doctor. This information is not intended to replace advice given to you by your health care provider. Make sure you discuss any questions you have with your health care provider. Document Revised: 03/07/2021 Document Reviewed: 03/07/2021 [employer] Patient Education ? 2020 [facility]. documented in this encounter Plan of Treatment Not on file documented as of this encounter Visit Diagnoses Not on filedocumented in this encounter
--- OUTSIDE RECORDS SUMMARY | 2025-05-11 10:44 | XMS_ITS | Encounter Summary ---
Author Organization [employer] ([place], [place], [place], [place]) Address [address] [place] [address] Care Team Providers Care Photograph Tinter Name Role Phone Unavailable Primary Care Provider Unavailabl e Encounter Details Date Type Department Care Team (Late st Contact Info) Description 01/01/2022 Transcribed Document [facility] Radiology 1 [place] [address] Anali South MD [address] [address] Social History Tobacco Use Types [...] or apply Heel Medix boots Apply Aloe [place] 3 (clear) or Sensicare 3 (white Zinc) [...] 66 YO male who presented to [facility] from [facility] secondary recurrent seizure activity. He is known to our practice from [facility]. Pt has hx of seizures, DM II, HTN, HLD, functional quadraplegia. It appears that pt had increased seizure activity in 10/2021 when at [facility] (or may have led to him going there). Keppra was added to lamictal at that time, then was hospitalized again at [facility] and dilantin was added to regimen. Despite med changes pt has continued to have seizures. It appears dilantin was low and provider had plans to start titration at [facility]. Pt had seizure for 19 min at [facility] yesterday and was still having seizure when transported by EMS. O2 sat was starting to drop. Previously he had had a seizure over 10 min. Do to recurrent seizures he was transferred here to [facility] for further work up. No records from [facility] ER were seen on pts chart. Pt says he has felt feverish. No cp, soa. Has had occ cough. Concerned about sacral/buttock wound. States that previously at [facility] it was almost healed now it is bad again. C/o pain around right parotid gland. States it was found at [facility]. States they have been swabbing his mouth with lemon juice, that helped at first but now swollen. Pt has dentures but not with him. At [facility] he was started on azithromycin and [...] sputum. Urinating well. Ready to discharge to [facility]. PE: Vitals Signs (last 24 [...]
--- OUTSIDE RECORDS SUMMARY | 2025-05-11 10:44 | XMS_ITS | Encounter Summary ---
Author Organization [employer] ([place], [place], [place], [place]) Address [address] [place] [address] Care Team Providers Care Career Services Director Name Role Phone Unavailable Primary Care Provider Unavailabl e Encounter Details Date Type Department Care Team (Late st Contact Info) Description 12/24/2021 Transcribed Document [facility] [place] [facility] [place] [address] ProviderDario MD [address] [place], [place] [phone] Social History Tobacco Use Types Packs/Day Years [...] LUKE ACKERMAN, ITA General Information Visit Type, ROTARY DRIER OPERATOR : Initial evaluation Patient Orders : Speech Language Pathology Modified Barium Swallow Study -111 Start: 12/25/21 8:47:00 EDT, Routine, For Other (see special instructions), Dysphagia - INGRID ELLSWORTH PA-FAM ROTARY DRIER OPERATOR Bedside Swallow Evaluation - Start: 12/24/21 15:16:00 EDT, Routine, For Swallow Eval and Treat -111 INGRID ELLSWORTH PA-FAM Admission Date : Admission Date/Time: 12/24/21 13:29:00 Medical Chart Reviewed, ROTARY DRIER OPERATOR : Yes Personal Devices : Personal Devices No Devices Recorded Assistive Devices : Assistive Devices No Devices Recorded Active Diagnoses : 12/24/2021 12:00 Seizure 12/24/2021 12:00 Seizure - Recurrent Therapy Diagnosis, ROTARY DRIER OPERATOR : Pt with recent hx for dysphagia ?secondary to intubation. Recommendations: 1. Ok to continue with current puree/nectar diet 2. MBS today for further pharyngeal assessment Previous Swallow Precautions : No previous ST in EMR Diet/Intake Prior to Current Admission : Puree/nectar Diet/Intake During Current Admission : puree/nectar Intubation Comment, ROTARY DRIER OPERATOR : n/a Vital Signs RTF : [...] 8:53 EDT General Status Patient Received Status, ROTARY DRIER OPERATOR : Supine in bed Treatment Start Time, ROTARY DRIER OPERATOR : 12/25/2021 8:33 EDT Patient Left Status, ROTARY DRIER OPERATOR : Long sitting in bed Treatment End Time, ROTARY DRIER OPERATOR : 12/25/2021 8:45 EDT Treatment Time, ROTARY DRIER OPERATOR : 12 Minute(s) LUKE ACKERMAN SLP - [...] Oral Mechanism for Daily Living : Intact ROTARY DRIER OPERATOR Cough : Strong Facial Appearance: : [...] evidence of dysphagia present Further Evaluation Required, ROTARY DRIER OPERATOR : MBS today Swallowing Outcome Measures : Functional Oral Intake Scale (FOIS) Functional Oral Intake Scale (FOIS) : Level V Bedside Swallow Overall Impressions : Pt admitted from SNF w/ intractable seizures. Per pt report/chart review, pt w/ recent hx for dysphagia given intubation during acute hospital stay. PMHx is significant for seizure disorder, DM II, HTN, HLD, and functional quadraplegia. ROTARY DRIER OPERATOR consulted for bedside dysphagia evaluation. Today, pt is alert and oriented x4. No difficulty participating in evaluation. Oral skills appear functional despite edentulism. No overt pharyngeal patterns appreciated with thin via straw, pudding, or solids. Given acute hx of dysphagia, pt appears safe to continue with a puree diet and nectar liquids. Medication in puree. Ok for ice after oral care. ROTARY DRIER OPERATOR will proceed with MBS prior to diet advancement. Pt is agreeable to plan for MBS this AM. RN alerted to results and recommendations. LUKE ACKERMAN SLP - 12/25/2021 8:53 EDT Swallow Recommendations Recommended Diet Type, SwRec : Pureed Recommended Liquid Diet, SwRec : Zeba Feeding Presentation Style, SwRec : No restrictions Swallow Position, SwRec : Upright 90 degrees Comp Strategies/Sw Precautions, SwRec : Upright for meals Supervision Level w/Meals, SwRec : Independent, complete Recommended Med Present, SwRec : With puree/pudding Recommended Exam, Sw Rec : MBSS/VFSS Repeat Swallow Exam Timeframe : 1-3 days LUKE ACKERMAN SLP - 12/25/2021 8:53 EDT Therapy Indication Assessment ROTARY DRIER OPERATOR Indicated : Yes ROTARY DRIER OPERATOR Interdisciplinary Consultation Needs : No ROTARY DRIER OPERATOR Problem List : Impaired, Swallowing Potential Barriers to ROTARY DRIER OPERATOR : None evident ROTARY DRIER OPERATOR Rehabilitation Potential : Good LUKE ACKERMAN SLP - 12/25/2021 8:53 EDT Swallow Plan/Goals Treatment Frequency, ROTARY DRIER OPERATOR : 5 times per wk Treatment Plan Est w/Pt/Caregvr, Swallow : Yes Treatment Duration, ROTARY DRIER OPERATOR : One week Therapy at Next Level of Care, ROTARY DRIER OPERATOR : care home facility LUKE ACKERMAN SLP - 12/25/2021 8:53 EDT Swallow LTG Grid ROTARY DRIER OPERATOR Fdc Goal #1 ROTARY DRIER OPERATOR Fdc Goal #2 Swallow LTG : Safely tolerates [...] LUKE ACKERMAN SLP - 12/25/2021 8:53 EDT ROTARY DRIER OPERATOR Education Assessment Grid 1 Diet Recommendation : Verbalizes understanding Evaluation Results : Verbalizes understanding Instrumental Evaluation : Verbalizes understanding LUKE ACKERMAN SLP - 12/25/2021 8:[address] [facility] [facility] ROTARY DRIER OPERATOR Charges Evaluation Swallowing Function : 1 LUKE ACKERMAN SLP - 12/25/2021 8:53 EDT Anticipated Discharge Needs, ROTARY DRIER OPERATOR Anticipated Discharge to : Extended Care Facility Recommend Continued Therapy at Discharge : Yes (Comment: pending MBS [LUKE ACKERMAN SLP - 12/25/2021 8:53 EDT] ) LUKE ACKERMAN SLP - 12/25/2021 8:53 EDT documented in this encounter Plan of Treatment Not on file documented as of this encounter Visit Diagnoses Not on filedocumented in this encounter
--- OUTSIDE RECORDS SUMMARY | 2025-05-11 10:44 | XMS_ITS | Encounter Summary ---
Author Organization [employer] ([place], [place], [place], [place]) Address [address] [place] [address] Care Team Providers Care Complaint Evaluation Officer Name Role Phone Unavailable Primary Care Provider Unavailabl e Encounter Details Date Type Department Care Team (Late st Contact Info) Description 12/24/2021 Transcribed Document [facility] [place] [facility] [place] [address] ProviderDario MD [address] [place], [place] [phone] Social History Tobacco Use Types Packs/Day Years [...] Acuity of Illness Rehabilitation Potential : Good IRCHARD VASQUEZ PT Student - 12/26/2021 14:57 EDT [...] VASQUEZ PT Student - 12/26/2021 14:57 EDT Senior Quality Assurance Analyst Goals BalanceLTG Grid Goal #1 Activity : [...]
--- OUTSIDE RECORDS SUMMARY | 2025-05-11 10:44 | XMS_ITS | Encounter Summary ---
Author Organization [employer] ([place], [place], [place], [place]) Address [address] [place] [address] Care Team Providers Care Energy Project Engineer Name Role Phone Unavailable Primary Care Provider Unavailabl e Encounter Details Date Type Department Care Team (Late st Contact Info) Description 01/01/2022 Transcribed Document [facility] [place] [facility] [address] ProviderDario MD [address] [place], [place] [phone] Social History Tobacco Use Types Packs/Day Years [...] rough night and was very aggitated. The scene shifter nurse and myself went in to do [...] now. And I will be contacting my emergency dispatch operator about this stay. At this point, I left the room with the signed records request, and informed my supervisor brake repair that I will not be going into [...]
--- OUTSIDE RECORDS SUMMARY | 2025-05-11 10:44 | XMS_ITS | Encounter Summary ---
Author Organization [employer] ([place], [place], [place], [place]) Address [address] [place] [address] Care Team Providers Care Water Fabricator Operator Name Role Phone Unavailable Primary Care Provider Unavailkatharine e Encounter Details Date Type Department Care Team (Late st Contact Info) Description 12/30/2021 Transcribed Document [facility] [place] Family Medicine [address] [place] [address] ProviderDario MD [address] [place], [place] [id number] Social History Tobacco Use Types Packs/Day Years Used Date Smoking Tobacco: Never Assessed Sex and Gender Information Value Date Recorded Sex Assigned at Not on file Legal Sex Male 5:38 PM CDT Gender Identity Not on file Sexual Orientation Not on file documented as of this encounter Miscellaneous Notes * Cerner Conversion Note - Historical ProviderMD - 12/30/2021 2:00 AM CDT Cork Sorter Details Entered On: 12/30/2021 2:14 EDT Performed [...]
--- OUTSIDE RECORDS SUMMARY | 2025-05-11 10:44 | XMS_ITS ---
Author Organization [place] Care Team Providers Care Roaster Operator Name Role Phone Cinthia Robertson Unavailable UnavailYUMIKO Gimenez Unavailable Unavailable Allergies and adverse reactions Code CodeSystem Substance Reaction Severity StartDate Concern Status Wellbutrin Unknown 03/06/2022 active Toradol Unknown 03/06/2022 active 5489 RXNORM HYDROcodone Unknown 03/06/2022 active 2670 RXNORM Codeine Unknown 03/06/2022 active Care Team Name Role Address Phone Organization Dates YUMIKO MEHTA PCP [address] [place] [facility] [address], [facility], [facility] (Office): : [place] 03/06/2022 - 01/25/2023 Cinthia Robertson [address] [place] [facility] [address], [place] (Office): : [place] 03/06/2022 - 01/25/2023 Goals Section Goals Description [...] completed Pneumococcal conjugate vaccine 15-valent (PCV15), polysaccharide OMC130 conjugate, adjuvant, preservative free 215 CVX created [...] 1 ACUTE RESPIRATORY FAILURE WITH HYPOXIA [address] active 2 ANEMIA, UNSPECIFIED [address] active 3 BENIGN NEOPLASM OF MENINGES, UNSPECIFIED [address] active 4 DYSPHAGIA, UNSPECIFIED [address] active 5 ENCEPHALOPATHY, UNSPECIFIED [address] active 6 MAJOR DEPRESSIVE DISORDER, SINGLE EPISODE, MILD [address] active 7 POLYNEUROPATHY, UNSPECIFIED [address] active 8 PRIMARY ADRENOCORTICAL INSUFFICIENCY [address] active 9 REPEATED FALLS [address] active 10 SUICIDAL IDEATIONS [address] active 11 PRESSURE ULCER OF SACRAL REGION, UNSTAGEABLE [address] active 12 EPILEPSY, UNSPECIFIED, NOT INTRACTABLE, WITH STATUS EPILEPTICUS [address] active 13 ACQUIRED ABSENCE OF RIGHT LEG ABOVE KNEE [address] active 14 ACUTE PYELONEPHRITIS [address] active 15 ESSENTIAL (PRIMARY) HYPERTENSION [address] active 16 HYPERLIPIDEMIA, UNSPECIFIED [address] active 17 PARAPLEGIA, UNSPECIFIED [address] active 18 PRESSURE ULCER OF OTHER SITE, STAGE 2 2 10/20/[address] completed 19 SEPSIS, UNSPECIFIED ORGANISM [address] active 20 SPINAL STENOSIS, THORACIC REGION [address] active 21 TYPE 2 DIABETES MELLITUS WITH DIABETIC NEPHROPATHY [address] active Reason for Referral No Reasons for Referral Entered Social History Social History Observation Description Start Date End Date Code Code System Current Smoking Status Tobacco smoking consumption unknown 456596337 SNOMED CT Sex Assigned At Male 1955 97747-3 [facility] Gender Identity Vital Signs Code Code System Vitals Name Values and Units Timing Information 8462-4 [facility] Blood Pressure-Diastolic Value=92 Un its=mmHg 01/25/2023 8480-6 LOINC Blood Pressure-Systolic Rlrrd=568 Un its=mmHg 01/25/2023 8867-4 [facility] Heart rate Value=99.0 Units=/min 96373-2 [facility] Pain Level Value=0.0 01/25/2023 8310-5 LOINC Body Temperature Value=97.5 Units= F 01/25/2023 2339-0 LOINC Blood Sugar Dqhmr=755.0 Units=mg/dL 01/19/2023 9279-1 [facility] Respiratory Rate Value=18.0 Units=/m in 01/09/2023 11785-9 [facility] O2 % BldC Oximetry Value=96.0 Units= % 01/09/2023 65471-0 LOINC Weight Cepmq=436.8 Units=Lbs 06/2023 8302-2 LOINC Height Value=72.0 Units=Inches 05/23/2022
--- OUTSIDE RECORDS SUMMARY | 2025-05-11 10:44 | XMS_ITS | Encounter Summary ---
[facility] Address [address] [place] [address] Care Team Providers Care Fan Installer Name Role Phone Gustavo Leggett MD Primary Care Provider [phone] Reason for Visit * Reason Onset Date Comments HOME HEALTH ORDER 11/13/2020 Encounter Details Date Type Department Care Team (Late st Contact Info) Description 11/13/2020 Telephone [facility] [address] [facility] [address] [place] [address] Tyree Tan MD HOME HEALTH [...] 11/14/2020 12:58 PM EST Called Sina at [phone] and there was no answer,simply said not [...] PT Relationship: SELF Best call back number: [phone] What orders are you requesting (i.e. lab [...] documented as of this encounter Care Teams Fan Installer Relationship Specialty Start Date End Date Gustavo Leggett MD [address] [facility] [address] [place] [address] PCP - General Adolescent Medicine 07/14/23 documented as of this encounter
--- OUTSIDE RECORDS SUMMARY | 2025-05-11 10:44 | XMS_ITS | Encounter Summary ---
Author Organization [employer] ([place], [place], [place], [place]) Address [address] [place] [address] Care Team Providers Care Neuroscientist Name Role Phone Unavailable Primary Care Provider Unavailabl e Encounter Details Date Type Department Care Team (Late st Contact Info) Description 12/24/2021 Transcribed Document [facility] [place] Family Medicine [facility] [place] [address] ProviderDario MD [address], [place] [address] Social History Tobacco Use Types Packs/Day Years [...] Communication Barrier : None Primary Language : Ivorian Any Spiritual/Cultural Needs or Requests : No [...] : Other: tachycardia Nail Bed Color : Philo Chest Pain : No Detailed Cardiovascular Assessment [...]
--- OUTSIDE RECORDS SUMMARY | 2025-05-11 10:44 | XMS_ITS | Encounter Summary ---
Author Organization [employer] ([place], [place], [place], [place]) Address [address] [place] [address] Care Team Providers Care Sprinkler Installer Name Role Phone Unavailable Primary Care Provider Unavailabl e Encounter Details Date Type Department Care Team (Late st Contact Info) Description 01/01/2022 Transcribed Document [facility] [place] Family Medicine [facility] [place] [address] ProviderDario MD [address] [place] [address] Social History Tobacco Use Types Packs/Day Years Used Date Smoking Tobacco: Never Assessed Sex and Gender Information Value Date Recorded Sex Assigned at Not on file Legal Sex Male 5:38 PM CDT Gender Identity Not on file Sexual Orientation Not on file documented as of this encounter Miscellaneous Notes * Cerner Conversion Note - Dario ProviderMD - 01/01/2022 4:27 PM CDT [facility] [place] [address] VITALY POOL :1955 Visit Time:12/24/2021 Your [...] Goals Patient Discharge Goal Patient Discharge Goal: [facility] facility Discharge Vitals Temperature 36.3 ??C Heart Rate (Monitored) 100 Respiratory Rate 16 Blood Pressure 115/79 What to do next Instructions From Your Care Team Discharge Activity: Discharge Activity: Activity as tolerated Diet: Discharge Diet: Resume usual diet as tolerated Follow-Up Appointments Follow Up with ROBERT CLAYTON MD-INT When Within 2 to 3 days Comments at [facility] Where: Medications What How Much [...] these instructions at home: Medicines ??? Take vzvg-cal-ywgnsyt and prescription medicines only as told by [...] the [place] ask your local department of Big Contacts when you can drive. ??? Get a [...] medicines are used to treat seizures. Take jzvd-rzk-waqbapm and prescription medicines only as told by your doctor. This information is not intended to replace advice given to you by your health care provider. Make sure you discuss any questions you have with your health care provider. Document Revised: 03/07/2021 Document Reviewed: 03/07/2021 Mogi Patient Education ?? 2020 Exie. Emergency Awareness and Preventative Care STROKE is [...] Assistance with quitting is available by contacting 0-901-QCWO-NOW. This is a free resource providing counseling, [...] range between ( 0.0 and 7.0 ) Berks #: 0.92 K/uL -- Normal range between ( 0.16 and 1.00 ) Eos #: 0.48 x10(3)/uL -- Normal range between ( 0.00 and 0.80 ) Berks %: 9.9 % -- Normal range between [...] was given the opportunity to ask questions. Patient/Child Psychiatrist Name: Patient/Child Psychiatrist Signature: Relationship to Patient: Clinician/Hospital Child Psychiatrist Signature: Date: documented in this encounter Plan of Treatment Not on file documented as of this encounter Visit Diagnoses Not on filedocumented in this encounter
--- OUTSIDE RECORDS SUMMARY | 2025-05-11 10:44 | XMS_ITS | Encounter Summary ---
Author Organization [employer] ([place], [place], [place], [place]) Address [address] [place] [address] Care Team Providers Care Hair Spring Winder Name Role Phone Unavailable Primary Care Provider Unavailabl e Encounter Details Date Type Department Care Team (Late st Contact Info) Description 01/01/2022 Transcribed Document [facility] [place] Family Medicine [facility] [place] [address] ProviderDario MD [address] [place] [address] Social History Tobacco Use Types [...] 01/01/2022 14:06 EDT by Vaishnavi Cunha V, Gambling Cashier Weight Loss Sales Consultant Final Discharge Planning Discharge Arrangements : Patient Post-Acute Information Patient Name: VITALY POOL Gender: Male : [birth year] Age: 66 Years Cur[place] Referral(s): Service: Organization: Business Address: Phone Number: [facility] [address] [facility], [place], [address] Patient Offered Choice/Affiliations Explained : [...] SNF with Medicare Certification-03 Vaishnavi Cunha V, Gambling Cashier Weight Loss Sales Consultant - 01/01/2022 14:06 EDT Final Narrative Note Final Narrative Note : DC back to [facility] for rehab via [facility] at 7pm. Vaishnavi Cunha V Gambling Cashier Weight Loss Sales Consultant - 01/01/2022 14:06 EDT documented in this encounter Plan of Treatment Not on file documented as of this encounter Visit Diagnoses Not on filedocumented in this encounter
--- OUTSIDE RECORDS SUMMARY | 2025-05-11 10:44 | XMS_ITS | Encounter Summary ---
Author Organization [employer] ([place], [place], [place], [place]) Address [address] [place] [address] Care Team Providers Care Grease Buffer Name Role Phone Unavailable Primary Care Provider Unavailabl e Encounter Details Date Type Department Care Team (Late st Contact Info) Description 12/31/2021 Transcribed Document [facility] [facility] [place] [address] ProviderDario MD [address], [place] [address] Social History Tobacco Use Types Packs/Day Years [...] On: 12/31/2021 15:09 EDT by CINTHYA RIVERA, RN-Welfare VisitorConstruction Checker Progress Note Discharge Arrangements : Patient Post-Acute [...] Patient Discharge Goal : group home facility Were Referrals Sent to Post Acute Providers : Yes Certification for Post-Acute Care Initiated : 12/30/2021 EDT CINTHYA RIVERA, JESSEE-Welfare Visitor - 12/31/2021 15:09 EDT Narrative Progress Note Narrative Progress Note : HD#7 RRS MOD Per F.C. liaison, no precert obtained for 12.31. CM rescheduled ems for 01.01@1900. BS nurse and attending updated. Historical Progress Note : updated F.C. with pt/ot notes via naveal in order to facilitate precert. CINTHYA RIVERA, RN-Welfare Visitor - 12/31/21 08:46:17 HD#6 ELOS-4 RAR-moderate CM sent PT/OT updates to [facility] for insurance precert approval. CM rescheduled patient[facility] s [facility] transport Patient is medically ready for discharge. CM sent updates to [facility]. [facility] [place] intiated insurance precert today. [facility] [place] when insurance precert is approved. [facility] scheduled tentively for 6pm om 12/30 in case insurance precert is approved. Vaishnavi Cunha V Service Support Representative [facility] [place] 12/30/21 13:29:12 HD#6 ELOS-4 RAR-moderate CM sent PT/OT updates to [facility] for insurance precert approval. CM rescheduled patient's [facility] transport to Wednesday, 12/31 at 7pm. Per Lisandra with [facility], transport time is ok since he is returning there. If precert isn't approved, CM will need to reschedule transportation. DCP-[facility] [place] [facility] insurance precert approved. [facility] scheduled tentively for 7pm om 12/31 in case insurance precert is approved. Vaishnavi Cunha V Service Support Representative [facility] - 12/30/21 13:33:56 Patient is medically ready for discharge. CM sent updates to [facility]. [facility] [place] intiated insurance precert today. [facility] [place] when insurance precert is approved. [facility] scheduled tentively for 6pm om 12/30 in case insurance precert is approved. Vaishnavi Cunha V Service Support Representative [facility] - 12/29/21 12:04:25 Patient is medically ready for discharge. Cm sent updates to [facility]. CM sent message to Lisandra from [facility] asking for precert with insurance to be started as soon as possible. Cm scheduled [facility] for 6 pm 12/29 if bed is available and precert obtained. [facility] will need [facility] if patient is not approved to go. CM will continue to follow. CALIXTO MCCABE, Service Support Representative-Miniature Train Driver - 12/28/21 13:59:37 CINTHYA RIVERA, RN-Welfare Visitor - 12/31/2021 15:09 EDT documented in this encounter Plan of Treatment Not on file documented as of this encounter Visit Diagnoses Not on filedocumented in this encounter
--- OUTSIDE RECORDS SUMMARY | 2025-05-11 10:45 | XMS_ITS | Encounter Summary ---
Author Organization [employer] ([place], [place], [place], [place]) Address [address] [place] [address] Care Team Providers Care Bread Jockey Name Role Phone Unavailable Primary Care Provider Unavailabl e Encounter Details Date Type Department Care Team (Late st Contact Info) Description 12/28/2021 Transcribed Document [facility] [place] [facility] [place] [address] ProviderDario MD [address], [place] [id number] Social History Tobacco Use Types Packs/Day Years [...] EEG-video monitoring was performed using the 32-channel NavigatorMD monitoring system. The seizure detection computer was [...] noted suggestive of mild diffuse cerebral dysfunction. /[id number] MD TERRENCE Dong/AQ / TAF / MODL /[id number] Electronically signed by [facility] Conversion Pit Clerk Cerner at 12/29/2022 4:36 PM CDT documented in this encounter Plan of Treatment Not on file documented as of this encounter Visit Diagnoses Not on filedocumented in this encounter
--- OUTSIDE RECORDS SUMMARY | 2025-05-11 10:45 | XMS_ITS | Encounter Summary ---
Author Organization [employer] ([place], [place], [place], [place]) Address [address] [place] [address] Care Team Providers Care Governor Assembler Name Role Phone Unavailable Primary Care Provider Unavailabl e Encounter Details Date Type Department Care Team (Late st Contact Info) Description 12/25/2021 Transcribed Document [facility] [place] Family Medicine [facility] [place] [address] ProviderDario MD [address], [place] [id number] Social History Tobacco Use Types Packs/Day Years Used Date Smoking Tobacco: Never Assessed Sex and Gender Information Value Date Recorded Sex Assigned at Not on file Legal Sex Male 5:38 PM CDT Gender Identity Not on file Sexual Orientation Not on file documented as of this encounter Miscellaneous Notes * Cerner Conversion Note - Historical ProviderMD - 12/25/2021 9:42 AM CDT Discharge Summary, TECHNICAL SUPPORT MANAGER Entered On: 12/25/2021 9:43 EDT Performed On: 12/25/2021 9:42 EDT by LUKE ACKERMAN SLP Discharge Notation. TECHNICAL SUPPORT MANAGER Dysphagia Treatment After Discharge : No Discharge Diet : Regular Discharge Liquids : Thin Discharge Compensatory Strategies : Upright for meals Repeat Instrumental Prior To : Not applicable Repeat Instrumental Timeline : n/a Discharge Summary Comment, TECHNICAL SUPPORT MANAGER : Pt was positioned upright at 90 [...] 9:42 EDT Swallow Plan/Goals Swallow LTG Grid TECHNICAL SUPPORT MANAGER Merry Go Round Operator Goal #1 TECHNICAL SUPPORT MANAGER Merry Go Round Operator Goal #2 Swallow LTG : Safely tolerates [...]
--- OUTSIDE RECORDS SUMMARY | 2025-05-11 10:45 | XMS_ITS | Encounter Summary ---
Author Organization [employer] ([place], [place], [place], [place]) Address [address] [place] [address] Care Team Providers Care Sheet Heater Name Role Phone Unavailable Primary Care Provider Unavailabl e Encounter Details Date Type Department Care Team (Late st Contact Info) Description 12/27/2021 Transcribed Document [facility] [place] [address] ProviderDario MD [address], [place] [id number] Social History Tobacco Use Types Packs/Day Years [...] EEG-video monitoring was performed using the 32-channel Eventmag[employer] monitoring system. The seizure detection computer was [...] noted, suggestive of mild diffuse cerebral dysfunction. /[id number] MD TERRENCE Dong/AQ / TAF / MODL /[id number] documented in this encounter Plan of Treatment Not on file documented as of this encounter Visit Diagnoses Not on filedocumented in this encounter
--- OUTSIDE RECORDS SUMMARY | 2025-05-11 10:45 | XMS_ITS | Encounter Summary ---
Author Organization [employer] ([place], [place], [place], [place]) Address [address] [place] [address] Care Team Providers Care Tray Casting Machine Operator Name Role Phone Unavailable Primary Care Provider Unavailabl e Encounter Details Date Type Department Care Team (Late st Contact Info) Description 12/26/2021 Transcribed Document [facility] [place] [facility] [place] [address] ProviderDario MD [address] [place], [place] [id number] Social History Tobacco Use Types Packs/Day Years [...] Policy Numbers : Insurance 1 Health Plan: [email or web address] MANAGED MEDICARE Policy Number: [id number] Authorization Number: Insurance Primary Name : [employer] MANAGED MEDICARE Policy Number: [id number] Authorization Status-Primary : Awaiting callback Reference Number-Primary : [id number] Authorization Number-Primary : [id number] Authorized Service Begin Date-Primary : 12/24/2021 EDT Authorization Comments-Primary : c/s clinicals faxed via [employer], auth remains under review on [email or web address] portal Historical Authorization Comments-Primary : Comment 1: Clinicals submitted on [employer] website for IP approval (JODY MUÑOZ RN 12/25/2021 08:50) DIONNE SCHAFFER RN-UTILIZATION MANAGEMENT REVIEW NON-EXEMPT - 12/26/2021 9:20 EDT Electronically signed by Olena Cruz Conversion Experimental Rocketsled Mechanic Cerner at 12/29/2022 4:46 PM CDT documented in this encounter Plan of Treatment Not on file documented as of this encounter Visit Diagnoses Not on filedocumented in this encounter
--- OUTSIDE RECORDS SUMMARY | 2025-05-11 10:45 | XMS_ITS | Encounter Summary ---
Author Organization [employer] ([place], [place], [place], [place]) Address [address] [place] [address] Care Team Providers Care Home Connect Lpn Name Role Phone Unavailable Primary Care Provider Unavailabl e Encounter Details Date Type Department Care Team (Late st Contact Info) Description 12/26/2021 Transcribed Document [facility] [place] Family Medicine [facility] [place] [address] ProviderDario MD [address] [place], [place] [id number] Social History Tobacco Use Types Packs/Day Years [...] Bryson Support Person/Pt Rep Contact Information : [phone] Want Family/Rep/Phys Notified of Admit : No Emergency Contact #1 : [place] Emergency Contact #1 Emergency Contact #1 Relationship : sister Emergency Contact #2 : . Emergency Contact #2 Phone Number : . Emergency Contact #2 Relationship : . Chief Complaint : pt from [facility], direct admit, pt has been having seizures the past 2 days, no hx, seizures have been lasting >10mins. here for neuro evaluation. Had seizure activity during triage lasting >2 min Information Obtained From : Patient, Other: caregiver Primary Language : Faroese Communication Barrier : None Lead Front Desk Agent Needed : No Brent Waller RN-Resource - [...] Level : 46 or > High Risk [place] Fall Interventions : Adequate lighting, Assistive devices [...] Source : Stated Height Entry Format : [place] Height, Feet : 5 ft(Converted to: 152 cm, 60 Inch) Height, Inches : 10 Inch(Converted to: 0 ft 10 Inch, 25.40 cm) Clinical Height : 177.8 cm Weight Source : Bed scale Weight Entry Format : [place] Clinical Dosing Weight : 81.82 kg Weight, Pounds : 180 lb Body Surface Area (BSA) : 2 m2 Body Mass Index : 25.9 kg/m2 (HI) [place] Body Weight : 72 kg Brent Waller [...] Brent Waller RN-Resource - 12/26/2021 1:08 EDT [place] Suicide Severity Rating Scale (C-SSRS) CSSRS Past [...]
--- OUTSIDE RECORDS SUMMARY | 2025-05-11 10:45 | XMS_ITS | Encounter Summary ---
Author Organization [employer] ([place], [place], [place], [place]) Address [address] [place] [address] Care Team Providers Care Metal Organ Pipe Maker Name Role Phone Unavailable Primary Care Provider Unavailabl e Encounter Details Date Type Department Care Team (Late st Contact Info) Description 12/29/2021 Transcribed Document [facility] Radiology 1 [place] [address] Anali South MD [facility] [address] [address] Social History Tobacco Use Types [...] motion, waiting for placement back to full [place]. Currently wearing oxygen that he does not wear at baseline so we will attempt to wean this. Latest readings on monitor all at 100%. Patient oriented to person and time. Denies f/c/s. no soa, chest pain. no n/v/d. no abd pain. no dysuria, hematuria HPI: 66 YO male who presented to [facility] from [facility] secondary recurrent seizure activity. He is known to our practice from [facility] Pt has hx of seizures, DM II, HTN, HLD, functional quadraplegia. It appears that pt had increased seizure activity in 10/2021 when at [facility] (or may have led to him going there). Keppra was added to lamictal at that time, then was hospitalized again at [facility] and dilantin was added to [...] recurrent seizures he was transferred here to [facility] for further work up. No records from [facility] ER were seen on pts chart. Pt says he has felt feverish. No cp, soa. Has had occ cough. Concerned about sacral/buttock wound. States that previously at [facility] it was almost healed now it is bad again. C/o pain around right parotid gland. States it was found at [facility]. States they have been swabbing his mouth with lemon juice, that helped at first but now swollen. Pt has dentures but not with him. At [facility] he was started on azithromycin and prednisone for parotid swelling. Prior hospitalizations: 11/2721-12/18/21 - [facility] - pt [facility]onsive at [facility] [...] renal failure, hyperkalemia and hypernatremia. 10/2021-12/01/2021 - [facility] - hip and back pain after [...] -12/25 - well controlled. A1c 6.4 Dysphagia -CLOSET BUILDER eval -thickened liquids and pureed diet for [...]
--- OUTSIDE RECORDS SUMMARY | 2025-05-11 10:45 | XMS_ITS | Encounter Summary ---
Author Organization [employer] ([place], [place], [place], [place]) Address [address] [place] [address] Care Team Providers Care All Around Gear Machine Operator Name Role Phone Unavailable Primary Care Provider Unavailabl e Encounter Details Date Type Department Care Team (Late st Contact Info) Description 12/27/2021 Transcribed Document [facility] [place] Family Medicine [facility] [place] [address] ProviderDario MD [address], [place] [id number] Social History Tobacco Use Types Packs/Day Years [...]
--- OUTSIDE RECORDS SUMMARY | 2025-05-11 10:45 | XMS_ITS | Encounter Summary ---
Author Organization [employer] ([place], [place], [place], [place]) Address [address] [place] [address] Care Team Providers Care Supervisor Engraving Name Role Phone Unavailable Primary Care Provider Unavailabl e Encounter Details Date Type Department Care Team (Late st Contact Info) Description 12/25/2021 Transcribed Document [facility] [place] [address] [place] [address] ProviderDario MD [address], [place] [address] Social History Tobacco Use Types Packs/Day Years [...]
--- OUTSIDE RECORDS SUMMARY | 2025-05-11 10:45 | XMS_ITS | Encounter Summary ---
Author Organization [employer] ([place], [place], [place], [place]) Address [address] [place] [address] Care Team Providers Care Steam Pressure Chamber Operator Name Role Phone Unavailable Primary Care Provider Unavailabl e Encounter Details Date Type Department Care Team (Late st Contact Info) Description 12/29/2021 Transcribed Document [facility] [place] Family Medicine [address] [place] [address] ProviderDario MD [address] [place], [place] [id number] Social History Tobacco Use Types Packs/Day Years [...]
--- OUTSIDE RECORDS SUMMARY | 2025-05-11 10:45 | XMS_ITS | Encounter Summary ---
Author Organization [employer] ([place], [place], [place], [place]) Address [address] [place] [address] Care Team Providers Care High School Guidance Counselor Name Role Phone Unavailable Primary Care Provider Unavailabl e Encounter Details Date Type Department Care Team (Late st Contact Info) Description 12/25/2021 Transcribed Document [facility] [place] Family Medicine [facility] [place] [address] ProviderDario MD [address], [place] [id number] Social History Tobacco Use Types Packs/Day Years Used Date Smoking Tobacco: Never Assessed Sex and Gender Information Value Date Recorded Sex Assigned at Not on file Legal Sex Male 5:38 PM CDT Gender Identity Not on file Sexual Orientation Not on file documented as of this encounter Miscellaneous Notes * Cerner Conversion Note - Historical ProviderMD - 12/25/2021 9:41 AM CDT RANCH COOK Therapy Screen Entered On: 12/25/2021 9:42 EDT Performed On: 12/25/2021 9:41 EDT by LUKE ACKERMAN SLP Therapy Screen Medical Chart Reviewed, RANCH COOK : Yes Information Obtained From, RANCH COOK : Patient Therapy Screen Completed, RANCH COOK : Yes Recommendations for Evaluation RANCH COOK : None Therapy Screen Comment, RANCH COOK : Pt admitted w/ seizures. No overt communication/cognitive deficits appreciated at bedside. No further communication evaluation indicated. LUKE ACKERMAN SLP - 12/25/2021 9:41 EDT Electronically signed by Anthony [facility] Conversion Sewage Reticulation Drafting Officer Cerner at 12/29/2022 4:45 PM CDT documented in this encounter Plan of Treatment Not on file documented as of this encounter Visit Diagnoses Not on filedocumented in this encounter
--- OUTSIDE RECORDS SUMMARY | 2025-05-11 10:45 | XMS_ITS | Encounter Summary ---
Author Organization [employer] ([place], [place], [place], [place]) Address [address] [place] [address] Care Team Providers Care Phy Therapist Name Role Phone Unavailable Primary Care Provider Unavailabl e Encounter Details Date Type Department Care Team (Late st Contact Info) Description 12/25/2021 Transcribed Document [facility] [place] [facility] [place] [address] ProviderDario MD [address], [place] [phone] Social History Tobacco Use Types Packs/Day Years [...] On: 12/25/2021 23:55 EDT by Smooth Greenfield Winding Inspector Cert Lead Meds to Bed Enrollment Patient Enrollment Decision: : Yes/enroll in meds to bed program Smooth Greenfield Winding Inspector Cert Lead - 12/26/2021 10:35 EDT Electronically signed by Olena Cruz Conversion Application Development Consultant Cerner at 12/29/2022 4:55 PM CDT documented in this encounter Plan of Treatment Not on file documented as of this encounter Visit Diagnoses Not on filedocumented in this encounter
--- OUTSIDE RECORDS SUMMARY | 2025-05-11 10:45 | XMS_ITS | Encounter Summary ---
Author Organization [employer] ([place], [place], [place], [place]) Address [address] [place] [address] Care Team Providers Care Senior C Web Developer Name Role Phone Unavailable Primary Care Provider Unavailabl e Encounter Details Date Type Department Care Team (Late st Contact Info) Description 12/25/2021 Transcribed Document [facility] Radiology 1 [place] [address] Anali South MD [address] [facility] [address] [place] [address] Social History Tobacco Use Types [...] NO n/v/d. NO cp, soa. Worked with METER ATTENDANT and passed. Has regular food tray. HPI: 66 YO male who presented to [facility] from [facility] secondary recurrent seizure activity. He is known to our practice from [facility]. Pt has hx of seizures, DM II, HTN, HLD, functional quadraplegia. It appears that pt had increased seizure activity in 10/[address] [facility] (or may have led to him going there). Keppra was added to lamictal at that time, then was hospitalized again at [facility] and dilantin was added to regimen. Despite med changes pt has continued to have seizures. It appears dilantin was low and provider had plans to start titration at [facility]. Pt had seizure for 19 min at [facility] yesterday and was still having seizure when transported by EMS. O2 sat was starting to drop. Previously he had had a seizure over 10 min. Do to recurrent seizures he was transferred here to [facility] for further work up. No records from [facility] ER were seen on pts chart. Pt says he has felt feverish. No cp, soa. Has had occ cough. Concerned about sacral/buttock wound. States that previously at [facility] it was almost healed now it is bad again. C/o pain around right parotid gland. States it was found at [facility]. States they have been swabbing his mouth with lemon juice, that helped at first but now swollen. Pt has dentures but not with him. At [facility] he was started on azithromycin and prednisone for parotid swelling. Prior hospitalizations: 11/2721-12/18/21 - [facility] - pt was unrepsonsive at [facility] and went to ER. Dc summary said seizures and DKA?. He was intubated for protection. Extubated on 12/08. He had some intermittent seizures during his stay. Dilantin was added. Seizures were stopped with Ativan. Lamictal dose was increased. EEG showed no seizure activity per D/c summary and pt returned to [facility]. He was found to have parotid swelling during this time. D/c summary also has Acute resp failure, acute renal failure, hyperkalemia and hypernatremia. 10/2021-12/01/2021 - [facility] - hip and back pain after [...] also of 50 mg q8h. 08/2021 - [facility] -- Right foot gangrene, s/p right [...] -12/25 - well controlled. A1c 6.4 Dysphagia -METER ATTENDANT eval -thickened liquids and pureed diet for [...]
--- OUTSIDE RECORDS SUMMARY | 2025-05-11 10:45 | XMS_ITS | Encounter Summary ---
Author Organization [employer] ([place], [place], [place], [place]) Address [address] [place] [address] Care Team Providers Care Youth Care Worker Name Role Phone Unavailable Primary Care Provider Unavailabl e Encounter Details Date Type Department Care Team (Late st Contact Info) Description 12/28/2021 Transcribed Document [facility] [place] Family Medicine [facility] [place] [address] ProviderDario MD [address] [place], [place] [phone] Social History Tobacco Use Types Packs/Day Years [...] On: 12/28/2021 13:59 EDT by CALIXTO MCCABE, Roof Bolter Helper-Brim Shaper Care Management Progress Note Discharge Arrangements : [...] Attend Multidisciplinary Rounds? : No CALIXTO MCCABE, Roof Bolter Helper-Brim Shaper - 12/28/2021 13:59 EDT Narrative Progress Note [...] CM will continue to follow. CALIXTO MCCABE, Roof Bolter Helper-Brim Shaper - 12/28/2021 13:59 EDT documented in this encounter Plan of Treatment Not on file documented as of this encounter Visit Diagnoses Not on filedocumented in this encounter
--- OUTSIDE RECORDS SUMMARY | 2025-05-11 10:45 | XMS_ITS | Encounter Summary ---
Author Organization [employer] ([place], [place], [place], [place]) Address [address] [place] [address] Care Team Providers Care Broadband Engineer Name Role Phone Unavailable Primary Care Provider Unavailabl e Encounter Details Date Type Department Care Team (Late st Contact Info) Description 12/26/2021 Transcribed Document [facility] [place] Family Medicine [facility] [place] [address] ProviderDario MD [address] [place], [place] [phone] Social History Tobacco Use Types Packs/Day Years [...] 13:29 Assisted by, PT : Physical Therapist, carpet cleaning technician/aide Personal Devices : Personal Devices No Devices [...] THEO GARCIA, PT - 12/29/2021 16:47 EDT Care Home Goals Mobility/Bed Mobility LTG PT Grid Goal [...] Anticipated Discharge to : Unit, rehabilitation, Unit, prison Recommend Continued Therapy at Discharge : Yes RICHARD VASQUEZ PT Student - 12/29/2021 16:37 EDT [place] PT Charges PT Therap. Exercise 15 min : 1 PT Ther Activities Ea 15 Min : 1 RICHARD VASQUEZ PT Student - 12/29/2021 16:37 EDT Electronically signed by Anthony, [facility] Conversion Explosive Operator Bomb Cerner at 01/03/2023 2:01 PM CDT documented in this encounter Plan of Treatment Not on file documented as of this encounter Visit Diagnoses Not on filedocumented in this encounter
--- OUTSIDE RECORDS SUMMARY | 2025-05-11 10:45 | XMS_ITS | Encounter Summary ---
Author Organization [employer] ([place], [place], [place], [place]) Address [address] [place] [address] Care Team Providers Care Order Editor Name Role Phone Unavailable Primary Care Provider Unavailabl e Encounter Details Date Type Department Care Team (Late st Contact Info) Description 12/26/2021 Transcribed Document [facility] [place] Family Medicine [facility] [place] [address] ProviderDario MD [address], [place] [phone] Social History Tobacco Use Types Packs/Day Years [...] wounds have been being treated at his terminal operations manager care facility. Medihoney initiated as treatment regimen. [...]
--- OUTSIDE RECORDS SUMMARY | 2025-05-11 10:45 | XMS_ITS | Encounter Summary ---
Author Organization [employer] ([place], [place], [place], [place]) Address [address] [place] [address] Care Team Providers Care Handle And Vent Machine Operator Name Role Phone Unavailable Primary Care Provider Unavailabl e Encounter Details Date Type Department Care Team (Late st Contact Info) Description 12/25/2021 Transcribed Document [facility] [place] Family Medicine [address] [place] [address] ProviderDario MD [address] [place], [place] [phone] Social History Tobacco Use Types Packs/Day Years [...]
--- OUTSIDE RECORDS SUMMARY | 2025-05-11 10:45 | XMS_ITS | Clinical Summary ---
Author Organization [employer] ([place], [place], [place], [place]) Address [address] [place] [address] Care Team Providers Care Magnesium Mill Operator Name Role Phone Unavailable Primary [...]
--- OUTSIDE RECORDS SUMMARY | 2025-05-11 10:45 | XMS_ITS | Encounter Summary ---
Author Organization [employer] ([place], [place], [place], [place]) Address [address] [place] [address] Care Team Providers Care Per Assessment Nurse Name Role Phone Unavailable Primary Care Provider Unavailabl e Encounter Details Date Type Department Care Team (Late st Contact Info) Description 12/26/2021 Transcribed Document [facility] Radiology [address] [place] [address] Anali South MD [address] [facility] [address] [place] [address] Social History Tobacco Use Types [...] HPI: 66 YO male who presented to [facility] from [facility] secondary recurrent seizure activity. He is known to our practice from [facility]. Pt has hx of seizures, DM II, HTN, HLD, functional quadraplegia. It appears that pt had increased seizure activity in 10/2021 when at [facility] (or may have led to him going there). Keppra was added to lamictal at that time, then was hospitalized again at [facility] and dilantin was added to [...] recurrent seizures he was transferred here to [facility] for further work up. No records from [facility] ER were seen on pts chart. Pt says he has felt feverish. No cp, soa. Has had occ cough. Concerned about sacral/buttock wound. States that previously at it was almost healed now it is bad again. C/o pain around right parotid gland. States it was found at [facility]. States they have been swabbing his mouth with lemon juice, that helped at first but now swollen. Pt has dentures but not with him. At [facility] he was started on azithromycin and prednisone for parotid swelling. Prior hospitalizations: 11/2721-12/18/21 - [facility] - pt was unrepsonsive at and went to ER. Dc summary said seizures and DKA?. He was intubated for protection. Extubated on 12/08. He had some intermittent seizures during his stay. Dilantin was added. Seizures were stopped with Ativan. Lamictal dose was increased. EEG showed no seizure activity per D/c summary and pt returned to . He was found to have parotid swelling during this time. D/c summary also has Acute resp failure, acute renal failure, hyperkalemia and hypernatremia. 10/2021-12/01/2021 - [facility] - hip and back pain [...] also of 50 mg q8h. 08/2021 - [facility] -- Right foot gangrene, s/p right [...] -12/25 - well controlled. A1c 6.4 Dysphagia -MUSICAL INSTRUMENTS ASSEMBLER eval -thickened liquids and pureed diet for [...]
--- OUTSIDE RECORDS SUMMARY | 2025-05-11 10:45 | XMS_ITS | Encounter Summary ---
Author Organization [employer] ([place], [place], [place], [place]) Address [address] [place] [address] Care Team Providers Care Process Controller Name Role Phone Unavailable Primary Care Provider Unavailabl e Encounter Details Date Type Department Care Team (Late st Contact Info) Description 12/28/2021 Transcribed Document [facility] [place] [facility] [place] [address] ProviderDario MD [address], [place] [phone] Social History Tobacco Use Types Packs/Day Years [...] EEG-video monitoring was performed using the 32-channel [email or web address] monitoring system. The seizure detection computer was [...] epileptogenicity in the left anterior temporal region. /[id number] MD TERRENCE Dong/ALECIA / TAF / MODL /[id number] documented in this encounter Plan of Treatment Not on file documented as of this encounter Visit Diagnoses Not on filedocumented in this encounter
--- OUTSIDE RECORDS SUMMARY | 2025-05-11 10:45 | XMS_ITS | Encounter Summary ---
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 He does [...]
--- OUTSIDE RECORDS SUMMARY | 2025-05-11 10:45 | XMS_ITS | Encounter Summary ---
Author Organization [employer] ([place], [place], [place], [place]) Address [address] [place] [address] Care Team Providers Care Head Insulation Board Saw Operator Name Role Phone Unavailable Primary Care Provider Unavailabl e Encounter Details Date Type Department Care Team (Late st Contact Info) Description 01/02/2022 Transcribed Document [facility] [place] Family Medicine [facility] [place] [address] ProviderDario MD [address] [place], [place] [phone] Social History Tobacco Use Types Packs/Day Years [...] On: 01/02/2022 10:53 EDT by Danica Hsu, Liquid Chlorine Operator Primary Insurance Authorization Authorization and Policy Numbers : Insurance 1 Health Plan: [employer] MANAGED MEDICARE Policy Number: [id number] Authorization Number: Insurance Primary Name : [facility] MANAGED MEDICARE Policy Number: [id number] Authorization Status-Primary : Approved Auth/Referral Contact Name-Primary : [place] Reference Number-Primary : [id number] Authorization Number-Primary : [id number] Number of Days Authorized-Primary : 11 Day(s) Authorized Service Begin Date-Primary : 12/24/2021 EDT Authorized Service End Date-Primary : 01/04/2022 EDT Authorization Comments-Primary : Discharge summary faxed. Historical Authorization Comments-Primary : Comment 1: c/s clinicals faxed via [facility] 12/27-12/31 (DIONNE SCHAFFER, JESSEE-UTILIZATION MANAGEMENT REVIEW NON-EXEMPT 12/31/2021 13:58) Comment 2: cont stay approved per fax from [facility] 12/26/21 NRD 01/05/22 (CARMEN TRENT, Machine Hamper Maker 12/26/2021 12:07) Comment 3: c/s clinicals faxed via [facility], auth remains under review on [facility] portal (DIONNE SCHAFFER RN-UTILIZATION MANAGEMENT REVIEW NON-EXEMPT 12/26/2021 09:20) Comment 4: Clinicals submitted on [facility] website for IP approval (JODY MUÑOZ RN 12/25/2021 08:50) Danica Hsu, Liquid Chlorine Operator - 01/02/2022 10:53 EDT documented in this encounter Plan of Treatment Not on file documented as of this encounter Visit Diagnoses Not on filedocumented in this encounter
--- OUTSIDE RECORDS SUMMARY | 2025-05-11 10:45 | XMS_ITS | Encounter Summary ---
Author Organization [employer] ([place], [place], [place], [place]) Address [address] [place] [address] Care Team Providers Care Director Of Speech Pathology Name Role Phone Unavailable Primary Care Provider Unavailabl e Encounter Details Date Type Department Care Team (Late st Contact Info) Description 12/25/[address] [facility] [place] Family [place] [facility] [place] [address] ProviderDario MD [address] [place] [address] Social History Tobacco Use Types [...] On: 12/25/2021 9:36 EDT by LUKE ACKERMAN, MORTGAGE LOAN OFFICER ORIGINATOR General Information Visit Type, MORTGAGE LOAN OFFICER ORIGINATOR : Re-Evaluation Patient Orders : Speech Language Pathology Modified Barium Swallow Study -111 Start: 12/25/21 8:47:00 EDT, Routine, For Other (see special instructions), Dysphagia - INGRID [place] PA-BAMBI Admission Date : Admission Date/Time: 12/24/21 13:29:00 Medical Chart Reviewed, MORTGAGE LOAN OFFICER ORIGINATOR : Yes Personal Devices : Personal Devices No Devices Recorded Assistive Devices : Assistive Devices No Devices Recorded Active Diagnoses : 12/24/2021 12:00 Seizure 12/24/2021 12:00 Seizure - Recurrent Therapy Diagnosis, MORTGAGE LOAN OFFICER ORIGINATOR : Normal oropharyngeal function. Recommendations: 1. Regular/thin 2. Medication per RN 3. NO further evaluation/tx for oropharyngeal dysphagia indicated Previous Speech/Language Evaluations : No previous ST in EMR Previous Swallow Precautions : No previous ST in EMR Previous Cognitive Evaluations : No previous ST in EMR Diet/Intake Prior to Current Admission : Puree/nectar Diet/Intake During Current Admission : puree/nectar Intubation Comment, MORTGAGE LOAN OFFICER ORIGINATOR : n/a Vital Signs RTF : Vitals [...] 9:36 EDT General Status Patient Received Status, MORTGAGE LOAN OFFICER ORIGINATOR : Up in chair Treatment Start Time, MORTGAGE LOAN OFFICER ORIGINATOR : 12/25/2021 9:17 EDT Patient Left Status, MORTGAGE LOAN OFFICER ORIGINATOR : Up in chair Treatment End Time, MORTGAGE LOAN OFFICER ORIGINATOR : 12/25/2021 9:27 EDT Treatment Time, MORTGAGE LOAN OFFICER ORIGINATOR : 10 Minute(s) LUKE ACKERMAN SLP - [...] Oral Mechanism for Daily Living : Intact MORTGAGE LOAN OFFICER ORIGINATOR Cough : Strong Facial Appearance: : Symmetrical [...] 9:36 EDT Modified Barium Swallow Impairment Profile, MORTGAGE LOAN OFFICER ORIGINATOR Modified Barium Swallow Impairment Profile Certified : [...] - 12/25/2021 9:36 EDT Therapy Indication Assessment MORTGAGE LOAN OFFICER ORIGINATOR Indicated : No MORTGAGE LOAN OFFICER ORIGINATOR Not Indicated : At prior level of function MORTGAGE LOAN OFFICER ORIGINATOR Interdisciplinary Consultation Needs : No MORTGAGE LOAN OFFICER ORIGINATOR Rehabilitation Potential : At prior level of function LUKE ACKERMAN SLP - 12/25/2021 9:36 EDT Swallow Plan/Goals Swallow LTG Grid MORTGAGE LOAN OFFICER ORIGINATOR Intermediate School Teacher Goal #1 MORTGAGE LOAN OFFICER ORIGINATOR Correction Goal #2 Swallow LTG : Safely tolerates [...] LUKE ACKERMAN SLP - 12/25/2021 9:36 EDT MORTGAGE LOAN OFFICER ORIGINATOR Education Assessment Grid 1 Diet Recommendation : Verbalizes understanding Evaluation Results : Verbalizes understanding LUKE ACKERMAN SLP - 12/25/2021 9:[address] [facility] Modified Barium Swallow : 1 LUKE ACKERMAN SLP - 12/25/2021 9:36 EDT Anticipated Discharge Needs, MORTGAGE LOAN OFFICER ORIGINATOR Anticipated Discharge to : Extended Care Facility Recommend Continued Therapy at Discharge : No LUKE ACKERMAN SLP - 12/25/2021 9:36 EDT documented in this encounter Plan of Treatment Not on file documented as of this encounter Visit Diagnoses Not on filedocumented in this encounter
--- OUTSIDE RECORDS SUMMARY | 2025-05-11 10:45 | XMS_ITS | Encounter Summary ---
Author Organization [employer] ([place], [place], [place]) Address [address] [place] [address] Care Team Providers Care Rake Operator Name Role Phone Unavailable Primary Care Provider Unavailabl e Encounter Details Date Type Department Care Team (Late st Contact Info) Description 12/26/2021 Transcribed Document [place] [facility] [address] ProviderDario MD [address] [place], [place] [id number] Social History Tobacco Use Types Packs/Day Years [...] JERSON MCGRAW OTR/Silva - 12/31/2021 12:27 EDT Group Home Goals, OT Grooming LTG Grid Goal #1 [...]
--- OUTSIDE RECORDS SUMMARY | 2025-05-11 10:45 | XMS_ITS | Encounter Summary ---
Author Organization [employer] ([place], [place]) Address [address] [place] [address] Care Team Providers Care Multi Needle Machine Operator Name Role Phone Unavailable Primary Care Provider Unavailabl e Encounter Details Date Type Department Care Team (Late st Contact Info) Description 12/26/2021 Transcribed Document [facility] [place] Family Medicine [facility] [place] [address] ProviderDario MD [address] [place], [place] [id number] Social History Tobacco Use Types Packs/Day Years [...] On: 12/26/2021 12:07 EDT by CARMEN TRENT, Clutch Assembler Primary Insurance Authorization Authorization and Policy Numbers : Insurance 1 Health Plan: [email or web address] MEDICARE Policy Number: [id number] Authorization Number: Insurance Primary Name : WELLC[employer] MANAGED MEDICARE Policy Number: [id number] Authorization Status-Primary : Certified in total Reference Number-Primary : [id number] Authorization Number-Primary : [id number] Number of Days Authorized-Primary : 11 Day(s) Authorized Service Begin Date-Primary : 12/24/2021 EDT Authorized Service End Date-Primary : 01/04/2022 EDT Authorization Comments-Primary : cont stay approved per fax from [facility] 12/26/21 NRD 01/05/22 Historical Authorization Comments-Primary : Comment 1: c/s clinicals faxed via [facility], auth remains under review on [employer] portal (DIONNE SCHAFFER, RN-UTILIZATION MANAGEMENT REVIEW NON-EXEMPT 12/26/2021 09:20) Comment 2: Clinicals submitted on [employer] website for IP approval (JODY MUÑOZ RN 12/25/2021 08:50) CARMEN TRENT, Clutch Assembler - 12/26/2021 12:07 EDT Electronically signed by Anthony [facility] Conversion Analytical Chemistry Teacher Cerner at 12/29/2022 4:55 PM CDT documented in this encounter Plan of Treatment Not on file documented as of this encounter Visit Diagnoses Not on filedocumented in this encounter
--- OUTSIDE RECORDS SUMMARY | 2025-05-11 10:45 | XMS_ITS | Encounter Summary ---
Author Organization [employer] ([place], [place], [place], [place]) Address [address] [place] [address] Care Team Providers Care Training And Documentation Specialist Name Role Phone Unavailable Primary Care Provider Unavailabl e Encounter Details Date Type Department Care Team (Late st Contact Info) Description 12/26/2021 Transcribed Document [facility] [place] [facility] [place] [address] ProviderDario MD [address] [place] [address] Social History Tobacco Use Types [...] facility but noted has been getting worse. PRECISION INSTRUMENT MAKER consulted for h/o dysphagia, okay for regular/thin [...] Recommendations : 1. Continue 60 gm diet. internet and e business project manager to send Glucerna BID and Gianni BID. Goal: Intakes 50% 2. Monitor wt 1x/wk Goal: No significant wt loss 3. Monitor BG, adjust insulin prn Goal: 70-140 mg/dL Risk: Moderate Jo Cevallos, Registered Dietitian - 12/26/2021 15:59 EDT Electronically signed by Olena Cruz Conversion Experimental Flight Test Mechanic Cerner at 12/29/2022 4:42 PM CDT documented in this encounter Plan of Treatment Not on file documented as of this encounter Visit Diagnoses Not on filedocumented in this encounter
--- OUTSIDE RECORDS SUMMARY | 2025-05-11 10:45 | XMS_ITS | Encounter Summary ---
Author Organization [employer] ([place], [place], [place], [place]) Address [address] [place] [address] Care Team Providers Care Scenery Builder Name Role Phone Unavailable Primary Care Provider Unavailabl e Encounter Details Date Type Department Care Team (Late st Contact Info) Description 12/26/2021 Transcribed Document [facility] [place] [place] Family Medicine [facility] [place] [address] ProviderDario MD [address] [place], [place] [id number] Social History Tobacco Use Types Packs/Day Years [...] EEG-video monitoring was performed using the 32-channel [employer] monitoring system. The seizure detection computer was [...] noted, suggestive of mild diffuse cerebral dysfunction. /[id number] MD TERRENCE Dong/ALECIA / TAF / MODL /[id number] documented in this encounter Plan of Treatment Not on file documented as of this encounter Visit Diagnoses Not on filedocumented in this encounter
--- OUTSIDE RECORDS SUMMARY | 2025-05-11 10:45 | XMS_ITS | Encounter Summary ---
Author Organization [employer] ([place], [place], [place], [place]) Address [address] [place] [address] Care Team Providers Care Manager Van Name Role Phone Unavailable Primary Care Provider Unavailabl e Encounter Details Date Type Department Care Team (Late st Contact Info) Description 12/28/2021 Transcribed Document [facility] Radiology [address] [place] [address] Anali South MD [address] [facility] [address] [place] [address] Social History Tobacco Use Types [...] who presented to [facility] from [facility] secondary recurrent seizure activity. He is known to our practice from [facility]. Pt has hx of seizures, DM II, HTN, HLD, functional quadraplegia. It appears that pt had increased seizure activity in 10/2021 when at [facility] (or may have led to him going there). Keppra was added to lamictal at that time, then was hospitalized again at [facility] and dilantin was added to regimen. Despite med changes pt has continued to have seizures. It appears dilantin was low and provider had plans to start titration at [facility]. Pt had seizure for 19 min at [facility] yesterday and was still having seizure when transported by EMS. O2 sat was starting to drop. Previously he had had a seizure over 10 min. Do to recurrent seizures he was transferred here to [facility] for further work up. No records from [facility] ER were seen on pts chart. Pt says he has felt feverish. No cp, soa. Has had occ cough. Concerned about sacral/buttock wound. States that previously at [facility] it was almost healed now it is bad again. C/o pain around right parotid gland. States it was found at [facility]. States they have been swabbing his mouth with lemon juice, that helped at first but now swollen. Pt has dentures but not with him. At [facility] he was started on azithromycin and prednisone for parotid swelling. Prior hospitalizations: 11/2721-12/18/21 - [facility] - pt was unrepsonsive at [facility] and went to ER. Dc summary said seizures and DKA?. He was intubated for protection. Extubated on 12/08. He had some intermittent seizures during his stay. Dilantin was added. Seizures were stopped with Ativan. Lamictal dose was increased. EEG showed no seizure activity per D/c summary and pt returned to [facility]. He was found to have parotid [...] also of 50 mg q8h. 08/2021 - [facility] -- Right foot gangrene, s/p [...] -12/25 - well controlled. A1c 6.4 Dysphagia -NEWS ASSIGNMENT EDITOR eval -thickened liquids and pureed diet for [...]
--- OUTSIDE RECORDS SUMMARY | 2025-05-11 10:45 | XMS_ITS | Encounter Summary ---
Author Organization [employer] ([place], [place], [place], [place]) Address [address] [place] [address] Care Team Providers Care Drive In Waiter/Waitress Name Role Phone Unavailable Primary Care Provider Unavailabl e Encounter Details Date Type Department Care Team (Late st Contact Info) Description 12/29/2021 Transcribed Document [facility] [place] [address] [place] [address] ProviderDario MD [address] [place], [place] [phone] Social History Tobacco Use Types Packs/Day Years [...]
--- OUTSIDE RECORDS SUMMARY | 2025-05-11 10:45 | XMS_ITS | Encounter Summary ---
Author Organization [employer] ([place], [place], [place], [place]) Address [address] [place] [address] Care Team Providers Care Name Plate Stamper Name Role Phone Unavailable Primary Care Provider Unavailabl e Encounter Details Date Type Department Care Team (Late st Contact Info) Description 12/25/2021 Transcribed Document [facility] [place] Family Medicine Pending sale to [place] [address] ProviderDario MD [address] [place], [place] [phone] Social History Tobacco Use Types Packs/Day Years [...] EDT Electronically signed by Anthony [facility] Conversion Skewer Up Cerner at 12/29/2022 4:54 PM CDT documented in this encounter Plan of Treatment Not on file documented as of this encounter Visit Diagnoses Not on filedocumented in this encounter
--- OUTSIDE RECORDS SUMMARY | 2025-05-11 10:45 | XMS_ITS | Encounter Summary ---
Author Organization [employer] ([place], [place], [place]) Address [address] [place] [address] Care Team Providers Care Facility Security Officer Name Role Phone Unavailable Primary Care Provider Unavailabl e Encounter Details Date Type Department Care Team (Late st Contact Info) Description 12/25/2021 Transcribed Document [facility] [place] [facility] [place] [address] ProviderDario MD [address] [place], [place] [phone] Social History Tobacco Use Types Packs/Day Years [...] 67 mmHg Heart Rate Monitored 104 bpm MA 12/25/2021 5:51 EDT Temperature, Fahrenheit 97.6 Deg [...]
--- OUTSIDE RECORDS SUMMARY | 2025-05-11 10:45 | XMS_ITS | Encounter Summary ---
Author Organization [employer] ([place], [place], [place], [place]) Address [address] [place] [address] Care Team Providers Care Marketing And Public Relations Manager Name Role Phone Unavailable Primary Care Provider Unavailabl e Encounter Details Date Type Department Care Team (Late st Contact Info) Description 12/29/2021 Transcribed Document [facility] [place] [facility] [place] [address] ProviderDario MD [address] [place], [place] [phone] Social History Tobacco Use Types Packs/Day Years [...] 12/29/2021 12:00 EDT by Vaishnavi Cunha V, Mental Health Consultant Collections Officer Care Management Progress Note Discharge Arrangements : [...] Multidisciplinary Rounds? : Yes Vaishnavi Cunha V, Mental Health Consultant Collections Officer - 12/29/2021 12:00 EDT Narrative Progress Note Narrative Progress Note : Patient is medically ready for discharge. CM sent updates to [facility]. [facility] intiated insurance precert today. DCP-Transfer back to [facility] when insurance precert is approved. [facility] ambulance scheduled tentively for 6pm om 12/30 in case insurance precert is approved. Historical Progress Note : Patient is medically ready for discharge. Cm sent updates to [facility]. CM sent message to Lisandra from signature asking for precert with insurance to be started as soon as possible. Cm scheduled [facility] for 6 pm 12/29 if bed is available and precert obtained. [facility] will need to be changed if patient is not approved to go. CM will continue to follow. CALIXTO MCCABE, Mental Health Consultant-Regulation Supervisor - 12/28/21 13:59:37 Vaishnavi Cunha V, Mental Health Consultant Collections Officer - 12/29/2021 12:00 EDT documented in this encounter Plan of Treatment Not on file documented as of this encounter Visit Diagnoses Not on filedocumented in this encounter
--- OUTSIDE RECORDS SUMMARY | 2025-05-11 10:45 | XMS_ITS | Clinical Summary ---
Author Organization [facility] Address [address] [place] [address] Care Team Providers Care Sheetmetal Patternmaker Name Role Phone Gustavo Leggett MD Primary Care Provider + [phone] Allergies Active Allergy Reactions Criticality Noted Date [...] headaches 07/07/2023 Coronary artery disease invo lving assinibo[place] and [place] tribes coronary artery of [place] and [place] tribes heart without angina pectoris 07/07/2023 Pressure injury of buttock, stage 1 06/13/2023 Pressure ulcers of skin of multiple topographic sites 06/13/2023 Overview (06/17/2023): Added automatically from request for surgery [id number] Cellulitis of left foot 06/13/2023 Overview (06/17/2023): Added automatically from request for surgery [id number] Acute encephalopathy 06/21/2022 Adrenal insufficiency 06/21/2022 Dysphagia [...] (05/02/2019): Added automatically from request for surgery [id number] Complicated migraines H/O traumatic brain injury Resolved Problems Problem Noted Date Diagnosed Date Resolved Date Confusion 05/11/2022 05/14/2022 Somnolence 05/09/2022 05/14/2022 Cellulitis 04/28/2019 12/01/2021 Cervical disc herniation 04/28/201901/2020 Overview (05/03/2019): Added automatically from request for surgery [id number] Immunizations Immunization Administration Dates Next Due COVID-19 [...] drink = 0.6 oz pur e alcohol) [facility] Utilities Answer Date Recorded In the [...] Brief Depression Severity Measure Score 2 08/09/2023 [facility] - Occupational [...] GED or equivalent No 09/01/2024 Preferred Language Tunisian 09/01/2024 PHQ-2 Answer Date Recorded Patient Health [...] 05/28/2022, 022 Medical Devices Implanted Type Area Media Law Faculty Member Device Identifier Shelf Expiration Date Model / Serial / Lot Fltr Jug Vena Cava Francine Del - [id number] Implanted:Qty: 1 on 05/02/2019 by Pedro Zapien MD at [facility] Implant BARD PERIPHERAL VASCULAR [id number] / / [id number] Description:MRI safety: Non- clinical testing demonstrated that the Francine Vena Cava Filter is MR Conditional. A patient with this implant can be scanned safely immediately after placement under the following conditions: Static magnetic field of 3-Jessica or 1.5-Jessica Spatial gradient magnetic field of 720-Gauss/cm or less Maximum MR system reported krfio-esku-bjbngqll specific absorption rate (CHRISTEL) of 2-W/kg in the normal operating mode Hemost Abs Surgifoam Sz100 8x12 10mm - [id number] Implanted:Qty: 1 on 07/17/2020 by Tyree Tan MD at [facility] Implant Spine Cervical [employer] J AND J 1974 / / Kt Seal Hemos Abs Floseal Matrx Fast/Prep 10ml - [id number] Implanted:Qty: 1 on 07/17/2020 by Tyree Tan MD at [facility] Implant Spine Cervical [facility] 10/08/2021 [id number] / / [id number] Putty Dbm [place] 6cc - [id number] - [id number] Implanted:Qty: 1 on 07/17/2020 by Tyree Tan MD at [facility] Implant Spine Cervical [employer] 06/05/2022 [id number] / [id number] / Spacr Lrd Spine Endoskeleton Nanolock Tc 6deg [id number] Sm - [id number] Implanted:Qty: 1 on 07/17/2020 by Tyree Tan MD at [facility] Implant Spine Cervical [employer] 09/24/2024 [id number] / / [id number] Coil Marlin Emb Fill Complex Sft 2mm 2cm - [id number] Implanted:Qty: 1 on 09/07/2024 by Jared Marcano MD at [facility] Implant [facility] 04/05/2031 [id number] / / [id number] Coil Marlin Emb Fill Complex Jsft 15cm - [id number] Implanted:Qty: 1 on 09/07/2024 by Jared Marcano MD at [facility] Implant [facility] 03/21/2030 [id number] / / [id number] Coil Mariln Emb Fill Complex Jsft 8mm 60cm - [id number] Implanted:Qty: 1 on 09/07/2024 by Jared Marcano MD at [facility] Implant P[employer]RA 07/19/2030 [id number] / / [id number] Procedures Procedure Name Priority Date/Time Associated Diagnosis Comments HEMOGLOBIN A1C Routine 09/02/2024 3:35 AM EST LIPID PANEL Routine 08/01/2023 4:42 AM EST from Last 3 Months or Most Recently Relevant to Health Maintenance Results * (ABNORMAL) Hemoglobin A1c (09/02/2024 3:35 AM EST) Pathologist [facility] Hemoglobin A1C 7.60(H) 4.80 - 5.60 % 09/02/2024 4:54 AM EST [facility] Blood Venipuncture / Unknown 09/02/2024 3:35 AM EST 09/02/2024 4:29 AM EST Narrative [facility] - 09/02/2024 4:54 AM EST Hemoglobin A1C Ranges: Increased Risk for Diabetes 5.7% to 6.4% Diabetes >= 6.5% Diabetic Goal < 7.0% Alondra Lanza MD LAB BLOOD ORDERABLES Fi nal Result [facility]
[address] [place] [address], * (ABNORMAL) Lipid Panel (08/01/2023 4:42 AM EST) Total Cholesterol 148 0 - 200 mg/dL 08/01/2023 5:39 AM EST [facility] Triglycerides 115 0 - 150 mg/dL 08/01/2023 5:39 AM EST [facility] HDL Cholesterol 37(L) 40 - 60 mg/dL 08/01/2023 5:39 AM EST [facility] LDL Cholesterol 90 0 - 100 mg/dL 08/01/2023 5:39 AM EST [facility] VLDL Cholesterol 21 5 - 40 mg/dL 08/01/2023 5:39 AM EST [facility] LDL/HDL Ratio 2.38 08/01/2023 5:39 AM EST [facility] Blood Venipuncture / Unknown 08/01/2023 4:42 AM EST 08/01/2023 4:57 AM EST [facility] - 08/01/2023 5:39 AM [...] Very High >189 mg/dL us January Jasbir DANCE TEACHER LAB BLOOD ORDERABLES Fi nal Result [facility]
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
--- OUTSIDE RECORDS SUMMARY | 2025-05-11 10:45 | XMS_ITS | Encounter Summary ---
Author Organization [employer] ([place], [place], [place], [place]) Address [address] [place] [address] Care Team Providers Care Harvest Crew Supervisor Name Role Phone Unavailable Primary Care Provider Unavailabl e Encounter Details Date Type Department Care Team (Late st Contact Info) Description 12/25/2021 Transcribed Document [facility] [place] [facility] [place] [address] ProviderDario MD [address] [place] [address] Social History Tobacco Use Types [...] Policy Numbers : Insurance 1 Health Plan: [employer] MEDICARE Policy Number: [id number] Authorization Number: Insurance Primary Name : WE[employer] MANAGED MEDICARE Policy Number: [id number] Authorization Status-Primary : Awaiting callback Reference Number-Primary : [id number] Authorized Service Begin Date-Primary : 12/24/2021 EDT Authorization Comments-Primary : Clinicals submitted on [employer] website for IP approval Historical Authorization Comments-Primary : No Authorization Comments Found JODY MUÑOZ RN - 12/25/2021 8:50 EDT Electronically signed by Miguel Ángel Cruz Conversion Hide Inspector And Sorter Cerner at 12/29/2022 4:46 PM CDT documented in this encounter Plan of Treatment Not on file documented as of this encounter Visit Diagnoses Not on filedocumented in this encounter
--- OUTSIDE RECORDS SUMMARY | 2025-05-11 10:45 | XMS_ITS | Encounter Summary ---
Author Organization [employer] ([place], [place], [place], [place]) Address [address] [place] [address] Care Team Providers Care Mortician Investigator Name Role Phone Unavailable Primary Care Provider Unavailabl e Encounter Details Date Type Department Care Team (Late st Contact Info) Description 12/26/2021 Transcribed Document [facility] Family Medicine [facility] [place] [address] ProviderDario MD [address], [place] [id number] Social History Tobacco Use Types Packs/Day Years [...] 12/26/2021 13:38 EDT by Vaishnavi Cunha V, Pneumatic Deicer Inspector Continuing Education Specialist Initial Assessment I Previously Documented Living Environment : No qualifying data available. Living Situation : Detention unit/facility Patient Lives With : Alone Emergency [...] Listed? : Yes Medical Durable Power of Slot Service Specialist Name : Little watson Legal Guardian : No Is Guardianship Needed : No Vaishnavi Cunha Social Worker [facility] - 12/26/2021 13:38 EDT Initial Assessment II Sensory and Motor Deficits : Quadriplegia Deficit Description : functional quadriplegia Current Home Treatments and Equipment : Hospital bed, Walker, Wheelchair, Other: lift Services and Community Resources : Home Health Services and Community Resources Addl Comments : [facility] Does the Patient have a Floor to SNF Benefit? : Yes Vaishnavi Cunha Social Worker [facility] - 12/26/2021 13:38 EDT Discharge Needs I Anticipated Discharge Date : 12/27/2021 EDT Anticipated Discharge To, CM : [facility] facility Current Home Treatment/Equipment : Current Home Treatment/Equipment No qualifying data available. Post Acute/Home Treatments : None Documentation Status Complete : Yes Vaishnavi Cunha Social Worker [facility] - 12/26/2021 13:38 EDT Discharge Needs II Professional Skilled Services : Professional Skilled Services No qualifying data available. Needs Assistance with Transportation : Yes Discharge Options Discussed with Patient : Discharge transportation, DME, Home Health, Short term rehabilitation Patient Discharge Goal : [facility] facility Vaishnavi Cunha Social Worker [facility] - 12/26/2021 13:38 EDT Narrative Note Narrative Note : 66 YO male who presented to [facility] from [facility] secondary recurrent seizure activity. Presently, he's at [facility] for rehab Pt has hx of seizures, DM II, HTN, HLD, functional quadraplegia. Neurology, wound care, PT/OT and speech consulted. Patient on EEG monitoring for the next 24 hours. CM met with pt. Explained role. Patient is a functional quadraplegic who's presently at [facility] for rehab. Prior to rehab, he lived alone with his 2 dogs. He has a wheelchair, hospital bed, lift and walker. He's wheelchair bound and stated that he was able to perform all of his ADL prior to rehab. He's had [facility] for [facility]. His sister, Little (Zhane) [phone] is his POA. DCP-Transfer back to [facility] via w/c van or stretcher pending bed availability and insurance precert approval. Vaishnavi Cunha Social Worker [facility] - 12/26/2021 13:38 EDT documented in this encounter Plan of Treatment Not on file documented as of this encounter Visit Diagnoses Not on filedocumented in this encounter
--- OUTSIDE RECORDS SUMMARY | 2025-05-11 10:45 | XMS_ITS | Encounter Summary ---
Author Organization [employer] ([place], [place], [place], [place]) Address [address] [place] [address] Care Team Providers Care Transfer Clerk Name Role Phone Unavailable Primary Care Provider Unavailabl e Encounter Details Date Type Department Care Team (Late st Contact Info) Description 12/28/2021 Transcribed Document [place] Family Medicine [facility] [place] [address] ProviderDario MD [address] [place], [place] [id number] Social History Tobacco Use Types Packs/Day Years [...]
--- OUTSIDE RECORDS SUMMARY | 2025-05-11 10:45 | XMS_ITS | Encounter Summary ---
Author Organization [employer] ([place], [place], [place], [place]) Address [address] [place] [address] Care Team Providers Care Customer Success Advocate Name Role Phone Unavailable Primary Care Provider Unavailabl e Encounter Details Date Type Department Care Team (Late st Contact Info) Description 12/29/2021 Transcribed Document [facility] [place] [address] ProviderDario MD [address] [place], [place] [id number] Social History Tobacco Use Types Packs/Day Years [...] in admission, no further spells after EEG machine set up for several days and otherwise has remained [...]
--- OUTSIDE RECORDS SUMMARY | 2025-05-11 10:46 | XMS_ITS | Encounter Summary ---
Author Organization [employer] ([place], [place], [place], [place]) Address [address] [place] [address] Care Team Providers Care Junior Graphic Designer Name Role Phone Unavailable Primary Care Provider Unavailabl e Encounter Details Date Type Department Care Team (Late st Contact Info) Description 12/27/2021 Transcribed Document [facility] Radiology [address] [place] [address] Robert South MD [address] [facility] [address] [place] [address] Social History Tobacco Use Types [...] HPI: 66 YO male who presented to [facility] from [facility] secondary recurrent seizure activity. He is known to our practice from [facility] Pt has hx of seizures, DM II, HTN, HLD, functional quadraplegia. It appears that pt had increased seizure activity in 10/2021 when at [facility] (or may have led to him going there). Keppra was added to lamictal at that time, then was hospitalized again at [facility] and dilantin was added to regimen. Despite med changes pt has continued to have seizures. It appears dilantin was low and provider had plans to start titration at [facility]. Pt had seizure for 19 min at [facility] yesterday and was still having seizure when transported by EMS. O2 sat was starting to drop. Previously he had had a seizure over 10 min. Do to recurrent seizures he was transferred here to [facility] for further work up. No records from [facility] ER were seen on pts chart. Pt says he has felt feverish. No cp, soa. Has had occ cough. Concerned about sacral/buttock wound. States that previously at [facility] it was almost healed now it is bad again. C/o pain around right parotid gland. States it was found at [facility]. States they have been swabbing his mouth with lemon juice, that helped at first but now swollen. Pt has dentures but not with him. At Snf he was started on azithromycin and prednisone for parotid swelling. Prior hospitalizations: 11/2721-12/18/21 - [facility] - pt was unrepsonsive at [facility] and went to ER. Dc summary [...] mg q8h. 08/2021 - [facility] -- Right foot gangrene, s/p right [...] EEG electrodes applied, pleasant cooperative bs [id number] [id number] abd soft, nt no leg swelling Data: [...] -12/25 - well controlled. A1c 6.4 Dysphagia -STRAP CUTTER eval -thickened liquids and pureed diet for [...]
[2025-05-11 11:19] LABS: Hematocrit 33.4 % (42.0-52.0); Hemoglobin 10.4 g/dL (14.1-18.0); Immature Granulocytes % 0.4 %; Mean Corpuscular HGB Conc 31.1 g/dL (31.8-35.4); Mean Corpuscular Hemoglobin 23.6 pg (27.0-31.2); Mean Corpuscular Volume 75.7 fl (80-94); Nucleated Red Blood Cells % 0 %; Platelet Count 308 K/mm3 (142-424); Red Blood Count 4.41 M/mm3 (4.60-6.20); Red Cell Distribution Width-SD 46.3 fL; White Blood Count 9.9 K/mm3 (4.8-10.8)
[2025-05-14 09:32] LABS: Alanine Aminotransferase 16 U/L (12-78); Albumin Level 3.6 g/dl (3.5-5.0); Albumin/Globulin Ratio 1.0 (1.1-1.8); Alkaline Phosphatase 140 U/L (38-126); Anion Gap 15.2 mEq/L (5-15); Aspartate Amino Transferase 22 U/L (17-59); Bilirubin,Total 0.3 mg/dl (0.2-1.3); Blood Urea Nitrogen 33 mg/dl (9-20); Calcium 9.0 mg/dl (8.4-10.2); Carbon Dioxide 23 mmol/L (22.0-30.0); Chloride 107 mmol/L (98-107); Creatinine,Serum 1.00 mg/dl (0.66-1.25); Estimated Glomerular Filt Rate 74 ml/min (>60); GFR (African American) 89 ML/MIN (>60); Globulin 3.6 g/dL (1.3-3.2); Glucose 130 mg/dl (74-100); Potassium 5.2 mmoL/L (3.5-5.1); Sodium 140 mmol/L (136-145); Total Protein,Serum 7.2 g/dl (6.3-8.2)
[2025-05-14 09:37] LABS: Tobramycin,Trough 0.9 ug/ml (0-2.0)
--- OUTSIDE RECORDS SUMMARY | 2025-05-21 20:00 | XMS_ITS | Clinical Summary ---
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 Active 09-25 00:00: 00 TYPE 2 DIABETES W DIABETIC PERIPHERAL ANGIOPATH W/O GANGRENE Active 09-25 00:00: 00 TYPE 2 DIABETES MELLITUS WITH DIABETIC POLYNEUROPAT HY Active 09-25 00:00: 00 HYPERTENSIVE HEART DISEASE WITH HEART FAILURE Active 09-25 00:00: 00 HEART FAILURE, UNSPECIFIED Active 09-25 00:00: 00 UNSPECIFIED ATRIAL FLUTTER Active 09-25 00:00: 00 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 Active 09-25 00:00: 00 GASTROPARESI S Active 09-25 00:00: 00 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 09-25 00:00: [...] 09-25 00:00: 00 ATHSCL HEART DISEASE OF [place] CORONARY ARTERY W/O ANG PCTRS Active 09-25 [...] OF URINARY DEVICE Active 09-25 00:00: 00 PENITENTIARY (CURRENT) USE OF ASPIRIN Active 09-25 00:00: 00 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/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 ELETS Active 09-25 00:00: 00 PRESENCE OF AORTOCORONAR Y BYPASS GRAFT Active 09-25 00:00: 00 PERSONAL HISTORY OF OTHER VENOUS THROMBOSIS AND EMBOLISM Active 09-25 00:00: 00 PERSONAL HISTORY OF PNEUMONIA (RECURRENT) Active 09-25 00:00: 00 HISTORY OF FALLING Active 09-25 00:00: 00 PERSONAL HISTORY OF METHICILLIN RESIS STAPH INFECTION Active 09-25 00:00: 00 EXTENDED SPECTRUM BETA LACTAMASE (ESBL) RESISTANCE Active 09-25 00:00: 00 DEPENDENCE ON WHEELCHAIR [...] mg chewable tablet 09-25 00:00: 00 Yes [id number] HEART DISEASE 1 tablet DAILY 1 tablet DAILY (route: oral) Med Classific ation: Hematolog ical Agents baclofen 10 mg tablet 09-25 00:00: 00 Yes [id number] MUSCLE SPASMS 1 tablet 2 TIMES DAILY 1 tablet 2 TIMES DAILY (route: oral) Med Classific ation: Locomotor System Basaglar KwikPen U-100 Insulin 100 unit/mL (3 mL) subcutaneou s 09-25 00:00: 00 Yes [id number] DIABETIC 42 unit BEDTIME 42 unit BEDTIME (route: subcutaneo us) Med Classific ation: Endocrine Cherelle Back and Body 500 mg-32.5 mg tablet 09-25 00:00: 00 Yes [id number] PAIN 1 tablet NEEDED 1 tablet NEEDED (route: oral) Med Classific ation: Analgesic , Anti-infl ammatory or Antipyret ic carvedilol 3.125 mg tablet 09-25 00:00: 00 Yes [id number] HEART RATE 1 tablet 2 TIMES DAILY 1 tablet 2 TIMES DAILY (route: oral) Med Classific ation: Cardiovas cular Therapy Agents clopidogrel 75 mg tablet 09-25 00:00: 00 Yes [id number] BLOOD THINNER 1 tablet DAILY 1 tablet DAILY (route: oral) Med Classific ation: Hematolog ical Agents folic acid 1 mg tablet 09-25 00:00: 00 Yes [id number] SUPPLEMENT 1 tablet DAILY 1 tablet DAILY (route: oral) Med Classific ation: Electroly te Balance-N utritiona l Products furosemide 40 mg tablet 09-25 00:00: 00 Yes [id number] FLUID 1 tablet DAILY 1 tablet DAILY (route: oral) Med Classific ation: Cardiovas cular Therapy Agents gabapentin 100 mg capsule 09-25 00:00: 00 Yes [id number] NERVE PAIN 2 capsule 3 TIMES DAILY 2 capsule 3 TIMES DAILY (route: oral) Med Classific ation: Central Nervous System Agents lamotrigine 100 mg tablet - 00:00: 00 Yes [id number] SEIZURES 1 tablet 2 TIMES DAILY 1 tablet 2 TIMES DAILY (route: oral) Med Classific ation: Central Nervous System Agents lamotrigine 150 mg tablet - 00:00: 00 Yes [id number] SEIZURES 1 tablet BEDTIME 1 tablet BEDTIME (route: oral) Med Classific ation: Central Nervous System Agents levofloxaci n 750 mg tablet - 00:00: 00 11-10 23:59 :00 No [id number] INFECTION 1 tablet DAILY 1 tablet DAILY (route: oral) Med Classific ation: Anti-Infe ctive Agents multivitami n tablet 09-25 00:00: 00 Yes [id number] SUPPLEMENT 1 tablet DAILY 1 tablet DAILY (route: oral) Med Classific ation: Electroly te Balance-N utritiona l Products ondansetron 4 mg disintegrat ing tablet 09-25 00:00: 00 Yes [id number] NAUSEA 1 tablet NEEDED 1 tablet NEEDED (route: oral) Med Classific ation: Gastroint estinal Therapy Agents Pacerone 400 mg tablet 09-25 00:00: 00 Yes [id number] HEART RATE 1 tablet 2 TIMES DAILY 1 tablet 2 TIMES DAILY (route: oral) Med Classific ation: Cardiovas cular Therapy Agents pantoprazol e 40 mg tablet,jossie yed release 09-25 00:00: 00 Yes [id number] ACID REFLUX 1 tablet DAILY 1 tablet DAILY (route: oral) Med Classific ation: Gastroint estinal Therapy Agents amoxicillin 875 mg-potassiu m clavulanate 125 mg tablet 5-21 00:00: 00 02-07 23:59 :00 No [id number] UTI 1 tablet EVERY AM 1 tablet EVERY AM (route: oral) Med Classific ation: Anti-Infe ctive Agents levofloxaci n 500 mg tablet 6-14 00:00: 00 03-10 23:59 :00 No [id number] DYSURIA 1 tablet DAILY 1 tablet DAILY (route: oral) Med Classific ation: Anti-Infe ctive Agents doxycycline hyclate 100 mg tablet 03-24 00:00: 00 03-31 23:59 :00 No [id number] DYSURIA 1 tablet 2 TIMES DAILY 1 tablet 2 TIMES DAILY (route: oral) Med Classific ation: Anti-Infe ctive Agents ertapenem 1 gram solution for injection 03-31 00:00: 00 04-03 23:59 :00 No [id number] UTI 1 g DAILY 1 g DAILY (route: injection) Med Classific ation: Anti-Infe ctive Agents lidocaine (PF) 10 mg/mL (1 %) injection solution 03-31 00:00: 00 04-03 23:59 :00 No [id number] DILUTING FOR ANTIBIOTIC Per instruc tions DAILY Per instructio ns DAILY (route: injection) Med Classific ation: Anestheti cs cefdinir 300 mg capsule 04-19 00:00: 00 04-29 23:59 :00 No [id number] UTI SYMPTOMS 1 capsule 2 TIMES DAILY 1 capsule 2 TIMES DAILY (route: oral) Med Classific ation: Anti-Infe ctive Agents heparin lock flush (porcine) 10 unit/mL intravenous solution 05-07 00:00: 00 05-17 23:59 :00 No [id number] BLOOD THINNER Per instruc tions DAILY Per instructio ns DAILY (route: intravenou s) Med Classific ation: Hematolog ical Agents sodium chloride 0.9 % (flush) injection syringe 05-07 00:00: 00 05-13 23:59 :00 No [id number] FLUSH Per instruc tions DAILY Per instructio ns DAILY (route: injection) Med Classific ation: Electroly te Balance-N utritiona l Products tobramycin 10 mg/mL intravenous solution 05-07 00:00: 00 05-13 23:59 :00 No [id number] ANTIBIOTIC 480 mg DAILY 480 mg DAILY (route: intravenou s) Med Classific ation: Anti-Infe ctive Agents Vital Signs Vital Name Observation Time Observation Value Commen ts Temperature 2025-05-10 11:19:00.000 98.2 [degF] Temperature 2025-05-09 15:28:00.000 97.3 [degF] Temperature 2025-05-09 12:11:00.000 97.6 [degF] Temperature 2025-05-07 11:29:00.000 97.9 [degF] Temperature 2025-05-05 15:46:00.000 97.9 [degF] Temperature 2025-05-04 09:58:00.000 97.8 [degF] Temperature 2025-05-01 12:53:00.000 97.6 [degF] Temperature 2025-04-30 15:09:00.000 97.9 [degF] Temperature 2025-04-26 15:25:00.000 97.7 [degF] Temperature 2025-04-24 12:32:00.000 97.8 [degF] Temperature 2025-04-23 10:12:00.000 98.1 [degF] Temperature 2025-04-19 11:10:00.000 97.6 [degF] Temperature 2025-04-17 12:40:00.000 98.6 [degF] Temperature 2025-04-17 12:39:00.000 98.6 [degF] Temperature 2025-04-13 08:59:00.000 98 [degF] Temperature 2025-04-12 10:03:00.000 98.3 [degF] Temperature 2025-04-10 12:13:00.000 97.9 [degF] Temperature 2025-04-09 12:45:00.000 97.7 [degF] Temperature 2025-04-05 07:30:00.000 97.9 [degF] Temperature 2025-04-03 12:34:00.000 98.6 [degF] Temperature 2025-04-02 12:52:00.000 98 [degF] Temperature 2025-03-29 12:54:00.000 98.2 [degF] Temperature 2025-03-26 12:34:00.000 98.1 [degF] BMI (%) 2025-05-09 15:28:00.000 29 kg/m2 Height 2025-05-09 15:28:00.000 72 [in_us] Pulse 2025-05-10 11:19:00.000 74 /min Pulse 2025-05-09 15:28:00.000 82 /min Pulse 2025-05-09 12:11:00.000 63 /min Pulse 2025-05-07 11:29:00.000 89 /min Pulse 2025-05-05 15:46:00.000 80 /min Pulse 2025-05-04 09:58:00.000 76 /min Pulse 2025-05-01 12:53:00.000 74 /min Pulse 2025-04-30 15:09:00.000 59 /min Pulse 2025-04-26 15:25:00.000 62 /min Pulse 2025-04-24 12:32:00.000 70 /min Pulse 2025-04-23 10:12:00.000 68 /min Pulse 2025-04-19 11:10:00.000 74 /min Pulse 2025-04-17 12:50:00.000 70 /min Pulse 2025-04-17 12:39:00.000 52 /min Pulse 2025-04-13 08:59:00.000 76 /min Pulse 2025-04-12 10:03:00.000 58 /min Pulse 2025-04-10 12:13:00.000 76 /min Pulse 2025-04-09 12:45:00.000 78 /min Pulse 2025-04-05 07:30:00.000 79 /min Pulse 2025-04-03 12:34:00.000 76 /min Pulse 2025-04-02 12:52:00.000 70 /min Pulse 2025-03-29 12:54:00.000 71 /min Pulse 2025-03-26 12:34:00.000 79 /min O2 Saturation (%) 2025-05-10 11:19:00.000 96 % O2 Saturation (%) 2025-05-09 15:28:00.000 99 % O2 Saturation (%) 2025-05-09 12:11:00.000 100 % O2 Saturation (%) 2025-05-07 11:29:00.000 100 % O2 Saturation (%) 2025-05-05 15:46:00.000 98 % O2 Saturation (%) 2025-05-04 09:58:00.000 98 % O2 Saturation (%) 2025-05-01 12:53:00.000 94 % O2 Saturation (%) 2025-04-30 15:09:00.000 99 % O2 Saturation (%) 2025-04-24 12:32:00.000 98 % O2 Saturation (%) 2025-04-23 10:12:00.000 99 % O2 Saturation (%) 2025-04-19 11:10:00.000 99 % O2 Saturation (%) 2025-04-17 12:40:00.000 98 % O2 Saturation (%) 2025-04-17 12:39:00.000 97 % O2 Saturation (%) 2025-04-13 08:59:00.000 99 % O2 Saturation (%) 2025-04-12 10:03:00.000 99 % O2 Saturation (%) 2025-04-10 12:13:00.000 94 % O2 Saturation (%) 2025-04-05 07:30:00.000 99 % O2 Saturation (%) 2025-04-03 12:34:00.000 96 % O2 Saturation (%) 2025-04-02 12:52:00.000 98 % O2 Saturation (%) 2025-03-29 12:54:00.000 98 % O2 Saturation (%) 2025-03-26 12:34:00.000 99 % Respirations 2025-05-10 11:19:00.000 19 /min Respirations 2025-05-09 15:28:00.000 18 /min Respirations 2025-05-09 12:11:00.000 18 /min Respirations 2025-05-07 11:29:00.000 16 /min Respirations 2025-05-05 15:46:00.000 18 /min Respirations 2025-05-04 09:58:00.000 16 /min Respirations 2025-05-01 12:53:00.000 18 /min Respirations 2025-04-30 15:09:00.000 20 /min Respirations 2025-04-26 15:25:00.000 16 /min Respirations 2025-04-24 12:32:00.000 18 /min Respirations 2025-04-23 10:12:00.000 16 /min Respirations 2025-04-19 11:10:00.000 18 /min Respirations 2025-04-17 12:40:00.000 18 /min Respirations 2025-04-17 12:39:00.000 18 /min Respirations 2025-04-13 08:59:00.000 16 /min Respirations 2025-04-12 10:03:00.000 16 /min Respirations 2025-04-10 12:13:00.000 18 /min Respirations 2025-04-09 12:45:00.000 16 /min Respirations 2025-04-05 07:30:00.000 16 /min Respirations 2025-04-03 12:34:00.000 18 /min Respirations 2025-04-02 12:52:00.000 16 /min Respirations 2025-03-29 12:54:00.000 16 /min Respirations 2025-03-26 12:34:00.000 16 /min Weight (lbs) 2025-05-09 15:28:00.000 216 [lb_av] Systolic Blood Pressure 2025-05-10 11:19:00.000 128 mm [Hg] Systolic Blood Pressure 2025-05-09 15:28:00.000 157 mm [Hg] Systolic Blood Pressure 2025-05-09 12:11:00.000 122 mm [Hg] Systolic Blood Pressure 2025-05-07 11:29:00.000 154 mm [Hg] Systolic Blood Pressure 2025-05-05 15:46:00.000 130 mm [Hg] Systolic Blood Pressure 2025-05-04 09:58:00.000 128 mm [Hg] Systolic Blood Pressure 2025-05-01 12:53:00.000 148 mm [Hg] Systolic Blood Pressure 2025-04-30 15:11:00.000 167 mm [Hg] Systolic Blood Pressure 2025-04-26 15:25:00.000 148 mm [Hg] Systolic Blood Pressure 2025-04-24 12:32:00.000 122 mm [Hg] Systolic Blood Pressure 2025-04-23 10:12:00.000 148 mm [Hg] Systolic Blood Pressure 2025-04-19 11:10:00.000 118 mm [Hg] Systolic Blood Pressure 2025-04-17 12:40:00.000 104 mm [Hg] Systolic Blood Pressure 2025-04-17 12:39:00.000 104 mm [Hg] Systolic Blood Pressure 2025-04-13 08:59:00.000 152 mm [Hg] Systolic Blood Pressure 2025-04-12 10:03:00.000 147 mm [Hg] Systolic Blood Pressure 2025-04-10 12:13:00.000 128 mm [Hg] Systolic Blood Pressure 2025-04-09 12:45:00.000 118 mm [Hg] Systolic Blood Pressure 2025-04-05 07:30:00.000 144 mm [Hg] Systolic Blood Pressure 2025-04-03 12:34:00.000 128 mm [Hg] Systolic Blood Pressure 2025-04-02 12:52:00.000 121 mm [Hg] Systolic Blood Pressure 2025-03-29 12:54:00.000 134 mm [Hg] Systolic Blood Pressure 2025-03-26 12:34:00.000 136 mm [Hg] Diastolic Blood Pressure 2025-05-10 11:19:00.000 68 mm [Hg] Diastolic Blood Pressure 2025-05-09 15:28:00.000 83 mm [Hg] Diastolic Blood Pressure 2025-05-09 12:11:00.000 70 mm [Hg] Diastolic Blood Pressure 2025-05-07 11:29:00.000 94 mm [Hg] Diastolic Blood Pressure 2025-05-05 15:46:00.000 75 mm [Hg] Diastolic Blood Pressure 2025-05-04 09:58:00.000 80 mm [Hg] Diastolic Blood Pressure 2025-05-01 12:53:00.000 84 mm [Hg] Diastolic Blood Pressure 2025-04-30 15:11:00.000 83 mm [Hg] Diastolic Blood Pressure 2025-04-26 15:25:00.000 92 mm [Hg] Diastolic Blood Pressure 2025-04-24 12:32:00.000 74 mm [Hg] Diastolic Blood Pressure 2025-04-23 10:12:00.000 77 mm [Hg] Diastolic Blood Pressure 2025-04-19 11:10:00.000 76 mm [Hg] Diastolic Blood Pressure 2025-04-17 12:40:00.000 60 mm [Hg] Diastolic Blood Pressure 2025-04-17 12:39:00.000 60 mm [Hg] Diastolic Blood Pressure 2025-04-13 08:59:00.000 84 mm [Hg] Diastolic Blood Pressure 2025-04-12 10:03:00.000 85 mm [Hg] Diastolic Blood Pressure 2025-04-10 12:13:00.000 74 mm [Hg] Diastolic Blood Pressure 2025-04-09 12:45:00.000 76 mm [Hg] Diastolic Blood Pressure 2025-04-05 07:30:00.000 88 mm [Hg] Diastolic Blood Pressure 2025-04-03 12:34:00.000 74 mm [Hg] Diastolic Blood Pressure 2025-04-02 12:52:00.000 79 mm [Hg] Diastolic Blood Pressure 2025-03-29 12:54:00.000 86 mm [Hg] Diastolic Blood Pressure 2025-03-26 12:34:00.000 83 mm [Hg] Plan of Treatment Planned Activity Planned Date Details Comments Future Scheduled Test SKILLED NU RSE FOR INSTRUCTIONS / REINFORCEMENT OF / MANAGEMENT OF DIABETES TO INCLUDE DIET, SKIN CARE, MEDICATION MANAGEMENT, BLOOD GLUCOSE TESTING VIA DEXCOM PRN THROUGHOUT THE DAY AND DIABETIC FOOT CARE. [code = SKILLED NURSE FOR INSTRUCTIONS / REINFORCEMENT OF / MANAGEMENT OF DIABETES TO INCLUDE DIET, SKIN CARE, MEDICATION MANAGEMENT, BLOOD GLUCOSE TESTING VIA DEXCOM PRN THROUGHOUT THE DAY AND DIABETIC FOOT CARE.] Future Scheduled Test [...] Future Scheduled Test SKILLED NU RSE FOR OBSERVATION / ASSESSMENT OF GASTROINTESTINAL STATUS AND TO INTERVENE TO MINIMIZE COMPLICATIONS. SKILLED NURSE TO PROVIDE SKILLED TEACHING/REINFORCEMENT RELATED TO ALTERED GASTROINTESTINAL STATUS INCLUDING PATHOPHYSIOLOGY, SELF CARE MANAGEMENT, NUTRITIONAL REQUIREMENTS, AND MEDICATION REGIMEN [code = SKILLED NURSE FOR OBSERVATION / ASSESSMENT OF GASTROINTESTINAL STATUS AND TO INTERVENE TO MINIMIZE COMPLICATIONS. SKILLED NURSE TO PROVIDE SKILLED TEACHING/REINFORCEMENT RELATED TO ALTERED GASTROINTESTINAL STATUS INCLUDING PATHOPHYSIOLOGY, SELF CARE MANAGEMENT, NUTRITIONAL REQUIREMENTS, AND MEDICATION REGIMEN] Future Scheduled Test SKILLED NU RSE TO OBSERVE AND ASSESS PATIENT WITH GENERALIZED DEPRESSION. ASSESS NEED FOR MEDICATION, MEDICATION CHANGES AND POTENTIAL NEED FOR REFERRAL TO PROVIDE COUNSELING AND ASSISTANCE WITH MANAGING DEPRESSION. [code = SKILLED NURSE TO OBSERVE AND ASSESS PATIENT WITH GENERALIZED DEPRESSION. ASSESS NEED FOR MEDICATION, MEDICATION CHANGES AND POTENTIAL NEED FOR REFERRAL TO PROVIDE COUNSELING AND ASSISTANCE WITH MANAGING DEPRESSION.] Future Scheduled Test SKILLED NU RSE FOR [...] Future Scheduled Test SKILLED NU RSE TO FOCUS ON IDENTIFIED NEED FOR HIGH RISK MEDICATION INTERVENTION. [code = SKILLED NURSE TO FOCUS ON IDENTIFIED NEED FOR HIGH RISK MEDICATION INTERVENTION.] Future Scheduled Test SKILLED NU RSE TO [...] Test SKILLED NU RSE FOR INSERTION OF INDWELLING CATHETER USING 12FR /10CC. CHANGE EVERY MONTH AND PRN DISLODGEMENT OR STOPPAGE. [code = SKILLED NURSE FOR INSERTION OF INDWELLING CATHETER USING 12FR /10CC. CHANGE EVERY MONTH AND PRN DISLODGEMENT OR STOPPAGE.] Future Scheduled [...] NU RSE TO PERFORM/TEACH WOUND CARE TO INCISION/SUTURE SITE LOCATED L FOOT SURGICAL AMPUTATION WOUND CLEANSE WITH WOUND CLEANSER, SILVER CALCIUM ALGINATE TO WOUND BED, COVER WITH GAUZE, WRAP WITH ROLL GAUZE, SECURE WITH COBAN OR DEBBY WRAP TWICE WEEKLY. MAY USE UNNA BOOT ONCE WEEKLY FOR EDEMA MANAGEMENT/WEEPING. [code = SKILLED NURSE TO PERFORM/TEACH WOUND CARE TO INCISION/SUTURE SITE LOCATED L FOOT SURGICAL AMPUTATION WOUND CLEANSE WITH WOUND CLEANSER, SILVER CALCIUM ALGINATE TO WOUND BED, COVER WITH GAUZE, WRAP WITH ROLL GAUZE, SECURE WITH COBAN OR DEBBY WRAP TWICE WEEKLY. MAY USE UNNA BOOT ONCE WEEKLY FOR EDEMA MANAGEMENT/WEEPING.] Future Scheduled Test SKILLED NU RSE TO COLLECT URINE ORDERED BY THE PROVIDER. [code = SKILLED NURSE TO COLLECT URINE ORDERED BY THE PROVIDER.] Future Scheduled Test SKILLED NU RSE PRN VISIT ORDER: 3 PRN VISITS MAY BE PERFORMED DURING THIS CERTIFICATION PERIOD FOR THE FOLLOWING REASON(S): FALLS, MEDICATION ISSUES, EXACERBATION OF COMORBIDITIES, INDWELLING CATHETER ISSUES OR DISLODGEMENT, WOUND CARE SKILLED NURSE TO EVALUATE AND DEVELOP PLAN [...] THIS CERTIFICATION PERIOD FOR THE FOLLOWING REASON(S): FALLS, MEDICATION ISSUES, EXACERBATION OF COMORBIDITIES, INDWELLING CATHETER ISSUES OR DISLODGEMENT, WOUND CARE SKILLED NURSE TO EVALUATE AND DEVELOP PLAN [...] OR 911 RELATED TO THE DIAGNOSIS OF HEART FAILURE AND HEART DISEASE . [code = SKILLED NURSE TO OBSERVE AND ASSESS CARDIOVASCULAR SYSTEM TO IDENTIFY CHANGES AND INTERVENE TO MINIMIZE COMPLICATIONS AND PROMOTE SELF CARE MANAGEMENT. SKILLED NURSE TO PROVIDE SKILLED TEACHING RELATED TO PATHOPHYSIOLOGY, DISEASE MANAGEMENT, SAFE MEDICATION ADMINISTRATION, WEIGHT/EDEMA MANAGEMENT, PERMITTED ACTIVITIES, S/SX OF EXACERBATION, AND S/SX TO NOTIFY AGENCY, PHYSICIAN OR 911 RELATED TO THE DIAGNOSIS OF HEART FAILURE AND HEART DISEASE .] Future Scheduled Test PATIENT/CA REGIVER WILL BE KNOWLEDGEABLE OF DISCHARGE PLANS AND WILL DEMONSTRATE/PROVIDE EDUCATION AND RESOURCES NEEDED TO MAINTAIN HEALTH. [code = PATIENT/CAREGIVER WILL BE KNOWLEDGEABLE OF DISCHARGE PLANS AND WILL DEMONSTRATE/PROVIDE EDUCATION AND RESOURCES NEEDED TO MAINTAIN HEALTH.] Future Scheduled Test AGENCY AGNES L DISCHARGE PATIENT TO DR. MEHTA PHYSICIAN/HEALTH CARE PROVIDER AND MAY ACCEPT ORDERS FROM THE FOLLOWING PHYSICIANS: DR MADSEN [code = AGENCY WILL DISCHARGE PATIENT TO DR. MEHTA PHYSICIAN/HEALTH CARE PROVIDER AND MAY ACCEPT ORDERS FROM THE FOLLOWING PHYSICIANS: DR MADSEN] Future Scheduled Test CLINICIAN TO OBSERVE AND ASSESS FOR SIGNS OF ANXIETY AND INSTRUCT PATIENT/CAREGIVERS IN HEALTHY BEHAVIORS AND MANAGEMENT STRATEGIES. [code = CLINICIAN TO OBSERVE AND ASSESS FOR SIGNS OF ANXIETY AND INSTRUCT PATIENT/CAREGIVERS IN HEALTHY BEHAVIORS AND MANAGEMENT STRATEGIES.] Future Scheduled Test CLINICIAN TO EDUCATE PATIENT [...] FUNCTIONAL STRENGTH AND ROM. OCCUPATIONAL THERAPY TO PROVIDE TECHNIQUES DESIGNED TO IMPROVE BED MOBILITY. CLINICIAN TO EDUCATE PATIENT / CAREGIVER IN [...] FUNCTIONAL STRENGTH AND ROM. OCCUPATIONAL THERAPY TO PROVIDE TECHNIQUES DESIGNED TO IMPROVE BED MOBILITY. CLINICIAN TO EDUCATE PATIENT / CAREGIVER IN [...] THE PLAN OF CARE. PHYSICAL THERAPY TO ESTABLISH/UPGRADE HOME EXERCISE PROGRAM AND PROVIDE THERAPEUTIC EXERCISES AND/OR MANUAL THERAPY TECHNIQUES DESIGNED TO RESTORE FUNCTIONAL STRENGTH AND ROM. CLINICIAN TO EDUCATE PATIENT / CAREGIVER IN FALL PREVENTION AND PROVIDE INTERVENTIONS TO REDUCE FALL RISK AND ENHANCE HOME SAFETY PATIENT/CAREGIVER WILL BE KNOWLEDGEABLE OF DISCHARGE PLANS AND WILL DEMONSTRATE/PROVIDE EDUCATION AND RESOURCES NEEDED TO MAINTAIN HEALTH. PHYSICAL THERAPIST TO PROVIDE SKILLED MAINTENANCE THERAPY SERVICES TO DESIGN OR ESTABLISH A MAINTENANCE PROGRAM OR PERFORM MAINTENANCE THERAPY INTERVENTIONS. [code = PHYSICAL THERAPIST TO EVALUATE/ASSESS AND DEVELOP PHYSICAL THERAPY PLAN OF CARE TO BE SIGNED BY THE PHYSICIAN. TEACH AND MONITOR PATIENT/CAREGIVER ABILITY TO SAFELY ADMINISTER MEDICATIONS. PHONE TOUCHPOINTS CAN BE PERFORMED NEEDED TO SUPPLEMENT THE PLAN OF CARE. PHYSICAL THERAPY TO ESTABLISH/UPGRADE HOME EXERCISE PROGRAM AND PROVIDE THERAPEUTIC EXERCISES AND/OR MANUAL THERAPY TECHNIQUES DESIGNED TO RESTORE FUNCTIONAL STRENGTH AND ROM. CLINICIAN TO EDUCATE PATIENT / CAREGIVER IN FALL PREVENTION AND PROVIDE INTERVENTIONS TO REDUCE FALL RISK AND ENHANCE HOME SAFETY PATIENT/CAREGIVER WILL BE KNOWLEDGEABLE OF DISCHARGE PLANS AND WILL DEMONSTRATE/PROVIDE EDUCATION AND RESOURCES NEEDED TO MAINTAIN HEALTH. PHYSICAL THERAPIST TO PROVIDE SKILLED MAINTENANCE THERAPY SERVICES TO DESIGN OR ESTABLISH A MAINTENANCE PROGRAM OR PERFORM MAINTENANCE THERAPY INTERVENTIONS.] Goal Patient Goal - T O BE ABLE TO GET UP AND GET AROUND THE HOUSE Goal 2024-11-20 Patient Goal - T O BE ABLE TO GET UP AND GET AROUND THE HOUSE Goal 2025 Patient Goal - T O BE ABLE TO GET UP AND GET AROUND THE HOUSE Goal 2025-03-22 Patient Goal - T O BE ABLE TO GET UP AND GET AROUND THE HOUSE Goal Provider Goal - PATIENT / CAREGIVER WILL VERBALIZE / DEMONSTRATE ADEQUATE KNOWLEDGE OF ENDOCRINE STATUS. GOAL TO BE MET BY 04/14/25 Goal Provider Goal - PATIENT/CAREGIVER WILL VERBALIZE/DEMONSTRATE ABILITY TO CARE FOR HYPERTENSION. GOAL TO BE MET BY 04/04/25 Goal Provider Goal - GASTROINTESTINAL STATUS WILL BE EVALUATED AND EXACERBATIONS IDENTIFIED WITH INTERVENTIONS IMPLEMENTED TO MINIMIZE COMPLICATIONS. PATIENT / CAREGIVER WILL VERBALIZE/DEMONSTRATE ABILITY TO CARE FOR ALTERED GASTROINTESTINAL STATUS. GOAL TO BE MET BY 04/05/25 Goal Provider Goal - PATIENT/CAREGIVER WILL VERBALIZE MEASURES TO COPE WITH DEPRESSION AND STATE SIGNS AND SYMPTOMS TO REPORT TO PHYSICIAN BY 04/01/25 Goal Provider Goal - INCREASED PAIN OR PAIN CONTROL MEASURES WILL BE IDENTIFIED AND PROMPTLY REPORTED TO THE PHYSICIAN. PATIENT / CAREGIVER WILL VERBALIZE UNDERSTANDING OF PHARMACOLOGIC AND NON-PHARMACOLOGIC PAIN CONTROL MEASURES. GOAL TO BE MET BY 04/15/25 Goal Provider Goal - PATIENT/CAREGIVER DEMONSTRATES ABILITY TO ADHERE TO MEDICATION REGIMEN. GOAL TO BE MET BY 04/17/25 Goal Provider Goal - GENITOURINARY SYSTEM WILL BE EVALUATED AND EXACERBATIONS IDENTIFIED WITH INTERVENTIONS IMPLEMENTED TO MINIMIZE COMPLICATIONS. PATIENT / CAREGIVER WILL VERBALIZE/DEMONSTRATE ABILITY TO CARE FOR ALTERED GENITOURINARY STATUS. GOAL TO BE MET BY 04/07/25 Goal Provider Goal - PATIENT / CAREGIVER WILL VERBALIZE/DEMONSTRATE KNOWLEDGE TO MANAGE URINARY CATHETER CARE AND WILL BE ABLE TO VERBALIZE SIGNS AND SYMPTOMS OF URINARY TRACT INFECTION. GOAL TO BE MET BY 04/08/25 Goal Provider Goal - PATIENT WILL VERBALIZE/TOLERATE CATHETER CHANGE THROUGHOUT EPISODE OF CARE. Goal Provider Goal - CHANGES IN SKIN INTEGRITY STATUS WILL BE IDENTIFIED AND REPORTED TO THE PHYSICIAN FOR PROMPT INTERVENTION. PATIENT / CAREGIVER WILL VERBALIZE/DEMONSTRATE ADEQUATE KNOWLEDGE OF INTEGUMENTARY STATUS AND APPROPRIATE MEASURES TO PROMOTE SKIN INTEGRITY AND PREVENT INJURY. GOAL TO BE MET BY 04/10/25 Goal Provider Goal - PATIENT / CAREGIVER WILL VERBALIZE / DEMONSTRATE ABILITY TO PERFORM WOUND CARE. WOUND STATUS WILL IMPROVE EVIDENCED BY A DECREASE IN SIZE, DRAINAGE, ABSENCE OF INFECTION, AND DECREASED PAIN. GOAL TO BE MET BY 04/11/25 Goal Provider Goal - PATIENT / CAREGIVER WILL VERBALIZE/DEMONSTRATE UNDERSTANDING OF PURPOSE OF URINE PROCEDURE AND LAB RESULTS WILL BE REPORTED TO PHYSICIAN WITH FOLLOW UP ORDERED THIS EPISODE. Goal Provider Goal - A PLAN OF CARE WILL BE ESTABLISHED THAT MEETS ALL PATIENT'S NURSING NEEDS AND COUNTERSIGNED BY PHYSICIAN. Goal Provider Goal - CARDIOVASCULAR EXACERBATIONS WILL BE IDENTIFIED PROMPTLY AND INTERVENTIONS INITIATED TO MINIMIZE ASSOCIATED RISK. PATIENT/CAREGIVER WILL VERBALIZE/DEMONSTRATE ABILITY TO CARE FOR ALTERED CARDIOVASCULAR STATUS. GOALS TO BE MET BY 04/03/25 Goal Provider Goal - PATIENT AND/OR CAREGIVER WILL BE IN AGREEMENT WITH DISCHARGE PLANS AND WILL VERBALIZE HAVING RESOURCES AND KNOWLEDGE TO MAINTAIN HEALTH. Goal Provider Goal - PATIENT WILL REMAIN SAFE AND NEEDS WILL BE MET BY COLLABORATING ON POC AND COMMUNICATING CHANGES IN POC AND CHANGES AFFECTING DISCHARGE PLAN WITH PATIENT, CAREGIVER, RECEIVING PHYSICIAN/HEALTH CARE PROVIDER, AND OTHER PHYSICIANS WRITING ORDERS ON THE POC THROUGHOUT CERTIFICATION PERIOD. Goal Provider Goal - PATIENT/CAREGIVER WILL VERBALIZE AND DEMONSTRATE HEALTHY BEHAVIORS AND STRATEGIES TO MANAGE ANXIETY. GOAL TO BE MET BY 04/13/25 Goal Provider Goal - PATIENT TO DEMONSTRATE REDUCED FALL RISK AND IMPROVE HOME SAFETY BY 04/02/25 Goal Provider Goal - PATIENT/CAREGIVER VERBALIZES AND DEMONSTRATES ABILITY FOR THE PATIENT TO FUNCTION WITHIN THEIR COMMUNITY AND TO PARTICIPATE IN THE DEVELOPMENT AND IMPLEMENTATION OF THEIR CARE PLAN THROUGHOUT THE CERTIFICATION PERIOD. Goal Provider Goal - PATIENT/CAREGIVER WILL VERBALIZE/DEMONSTRATE ABILITY FOR THE PATIENT TO FUNCTION WITHIN THEIR COMMUNITY AND TO PARTICIPATE IN THE DEVELOPMENT AND IMPLEMENTATION OF THEIR CARE PLAN THROUGHOUT THE CERTIFICATION PERIOD PATIENT WILL REMAIN SAFE AND NEEDS WILL BE MET BY COMMUNICATING CHANGES IN POC WITH PATIENT/CAREGIVER AND THE APPROPRIATE PHYSICIAN(S) WRITING ORDERS ON THE POC AND COMMUNICATING WITH RECEIVING PHYSICIANS/HEALTH CARE PROVIDER WHEN THERE ARE CHANGES IN THE DISCHARGE PLAN THROUGHOUT THE EPISODE OF CARE. THROUGH REMOTE VIDEO VISIT(S) EDUCATION WILL BE RECEIVED TOWARDS POC ORDERS/GOALS. PATIENT/CAREGIVER WILL VERBALIZE/DEMONSTRATE THE FOLLOWING INTERVENTIONS/TECHNIQUES OCCUPATIONAL THERAPY EVALUATION WILL BE COMPLETED. PLAN OF CARE WILL BE ORDERED BY PHYSICIAN AND PROVIDED BY OCCUPATIONAL THERAPIST. ALL GOALS TO BE MET BY END OF CURRENTLY APPROVED PLAN OF CARE. PATIENT WILL DEMONSTRATE IMPROVED FUNCTION IN RESPONSE TO SPECIFIC EXERCISE(S) AND/OR MANUAL THERAPY TECHNIQUE(S), EVIDENCED BY INCREASED INDEPENDENCE IN ACTIVITIES OF DAILY LIVING. GOAL TO BE MET BY 05/22/2025 PATIENT WILL DEMONSTRATE IMPROVED BED MOBILITY. GOAL TO BE MET BY 05/22/2025 PATIENT TO DEMONSTRATE REDUCED FALL RISK AND IMPROVE HOME SAFETY BY 05/22/2025 PATIENT WILL DEMONSTRATE INCREASED INDEPENDENCE IN ACTIVITIES OF DAILY LIVING. GOAL TO BE MET BY 05/22/2025 PATIENT/CAREGIVER TO DEMONSTRATE UNDERSTANDING OF AND COMPLIANCE WITH ENERGY CONSERVATION MEASURES, EVIDENCED BY INCREASED TOLERANCE DURING ADL'S/IADL'S. GOAL TO BE MET BY 05/22/2025 PATIENT AND/OR CAREGIVER WILL BE IN AGREEMENT WITH DISCHARGE PLANS AND WILL VERBALIZE HAVING RESOURCES AND KNOWLEDGE TO MAINTAIN HEALTH. Goal Provider Goal - A PHYSICAL THERAPY PLAN OF CARE WILL BE ORDERED BY PHYSICIAN AND PROVIDED BY PHYSICAL THERAPY. ALL GOALS TO BE MET BY END OF CURRENTLY APPROVED PLAN OF CARE. PATIENT WILL DEMONSTRATE IMPROVED FUNCTION IN RESPONSE TO SPECIFIC EXERCISE(S) AND/OR MANUAL THERAPY TECHNIQUE(S), EVIDENCED BY INCREASED INDEPENDENCE IN ACTIVITIES OF DAILY LIVING. GOAL TO BE MET BY 05 31 25 PATIENT TO DEMONSTRATE REDUCED FALL RISK AND IMPROVE HOME SAFETY BY 05 31 25 PATIENT AND/OR CAREGIVER WILL BE IN AGREEMENT WITH DISCHARGE PLANS AND WILL VERBALIZE HAVING RESOURCES AND KNOWLEDGE TO MAINTAIN HEALTH. MAINTENANCE THERAPY PT SERVICES WILL ENSURE THE PATIENT WILL REMAIN SAFE IN THEIR HOME ENVIRONMENT AND WILL MITIGATE DECLINE IN FUNCTION. GOAL TO BE MET BY 05 31 25 Progress Notes Progress Notes <paragraph>[Visit Date: 2024 by MARIA ISABEL ENGLISH RN]:</paragraph><paragraph>NURSING REEVALUATION</paragraph><paragraph></paragraph><paragraph>PATIENT LYING IN HOSPITAL BED WITH LEFT LEG DANGLING OVER BED ON ARRIVAL. PATIENT ALERT AND PLEASANT. PATIENT WAS SENT TO [facility] ON WEDNESDAY FOLLOWING JAIL VISIT DUE TO SIGNS AND SYMPTOMS UTI. PATIENT WAS KEPT FOR OBSERVATION STAY ONLY AND SENT BACK HOME. PATIENT IS NOW RECEIVING IV TOBRAMYCIN DAILY FOR 6 DAYS VIA MIDLINE. MIDLINE DUE TO BE PULLED NEXT WEEK AFTER THE HOLIDAY, INFUSIONS WILL FINISH UP ON WEDNESDAY. LAB WORK DUE THIS COMING WEDNESDAY. PATIENT HAS A MID LINE IN LEFT UPPER ARM. LINE INTACT WITHOUT ANY SIGNS OR SYMPTOMS OF INFECTION AND FLUSHING WELL. PATIENT HAS A NEIGHBOR/FRIEND WHO IS PERFORMING DAILY IV ANTIBIOTIC THERAPY AND PATIENT STATES SHE HAS DONE THIS IN THE PAST WHEN HE HAD IV THERAPY. JAIL DISCUSSED AND REVIEWED ADMINISTRATION OF [facility] MED[facility]. PATIENT VERBALIZED UNDERSTANDING. JAIL ALSO DISCUSSED RISK OF MEDICATION REACTION AND SIGNS AND SYMPTOMS OF REACTION. JAIL INSTRUCTED PATIENT TO USE LIFELINE AND OR CALL 911 WITH ANY SEVERE REACTIONS. PATIENT VERBALIZED UNDERSTANDING OF ALL INSTRUCTION. JAIL PERFORMED WOUND CARE TO LEFT LOWER EXTREMITY. PATIENT CONTINUES TO HAVE CHRONIC SURGICAL WOUND ON LEFT ANTERIOR FOOT. WOUND HAS SOME MACERATION NOTED BUT DECREASED FROM LAST VISIT. NO ODOR OR SIGNS AND OR SYMPTOMS OF INFECTION. SEE WOUND CARE ASSESSMENT AREA. PATIENT CONTINUES TO HAVE OPEN AREAS PRESSURE WOUNDS ON RIGHT BUTTOCK STAGE 2. NO CHANGES NOTED.</paragraph><paragraph>PATIENT HAS ALSO DEVELOPED A NEW WOUND RELATED TO PRESSURE TO THE LEFT BUTTOCK, PICTURES AND MEASUREMENTS OBTAINED. PARTIAL THICKNESS SKIN LOSS, ROUND WITH SMALL SEROSANGEOUS DRAINAGE. NO ODORS AND NO SIGNS OF INFECTION. PATIENT COULD BENEFIT FROM COVERING WITH A FOAM BORDER DRESSING EVERY OTHER DAY OR NEEDED FOR SOILED OR DISLODGED DRESSING.</paragraph><paragraph>CONTACTED [facility] AND ORDERED ADDITIONAL WOUND CARE SUPPLIES FOR THE LEFT LOWER EXTREMITY AND THE NEW WOUNDS TO THE BILATERAL BUTTOCKS, CONFIRMATION CODE [id number]. PATIENT CONTINUES TO LAY ON BOTTOM IN BED MOST ALL OF THE TIME. JAIL DISCUSSED WITH PATIENT GETTING A NEW MATTRESS TO RELIEVE PRESSURE AND ALSO GETTING A NEW CUSHION FOR WHEELCHAIR. PATIENT BLUNTLY STATES HE WILL NOT USE THESE BECAUSE IT MAKES IT MORE DIFFICULT FOR HIM TO GET IN AND OUT OF BED AND GETTING A NEW MATTRESS WILL ONLY MAKE IT WORSE DUE TO PREVIOUS L AKA AND OBESITY. PATIENT STATES DON'T CALL IT IN BECAUSE IT'S GOING TO BE A WASTE OF MONEY BECAUSE I'M NOT USING THAT </paragraph><paragraph>NURSE AWAITING A RETURN CALL FROM PROVIDER'S OFFICE.</paragraph><paragraph>INSTRUCTED PATIENT TO NOTIFY [facility] FOR ANY QUESTIONS OR CONCERNS AND TO SEEK EMERGENCY MEDICAL TREATMENT FOR EMERGENCY SITUATIONS. PATIENT STATES UNDERSTANDING</paragraph> <paragraph>[Visit Date: 2024 by LE BECERRA PT]:</paragraph><paragraph>IN BED UPON ARRIVAL, AGREEABLE TO SESSION. MODERATE PAIN BODY ACHES, NO FALLS. </paragraph><paragraph></paragraph><paragraph>WENT TO ER WEDNESDAY NIGHT. UA, CT, BLOOD TESTS. PATIENT UNAWARE OF RESULTS. HE DID HAVE A PICC INSERTED LUE AND SENT HOME WITH 7 DAYS OF IV ABX, AND SALINE FLUSHES. HE HAS 5 DAYS LEFT. ALSO HEPARIN. UPDATED MED PROFILE. HE WAS NOT ADMITTED.</paragraph><paragraph></paragraph><paragraph>C/O NAUSEA, FATIGUE, DIZZINESS, LOW APPETITE, WEAKNESS, CHILLS. UNABLE TO TOLERATE TRANSFERS OR TIME IN WC. ALSO LIMITED BY NEW BUTTOCK WOUND. HR IRREGULARLY IRREGULAR. MD AWARE. REGULAR BOWEL MOVEMENTS, NOT DIARRHEA.</paragraph><paragraph></paragraph><paragraph>GOT NEW PAID HELPER 2 DAYS A WEEK FOR 4 HOURS, ATTENDANCE HAS BEEN INCONSISTENT.</paragraph><paragraph></paragraph><paragraph>EOB THER EX.</paragraph><paragraph></paragraph><paragraph>CONTINUES TO DEMONSTRATE DEFICITS IN STRENGTH AND ENDURANCE. RECOMMEND CONTINUE MAINTENANCE THERAPY TO PREVENT DECLINE IN FUNCTION. PATIENT IS HOMEBOUND D/T DEPENDENCE ON SPECIALTY TRANSPORTATION FOR SAFE ENTRY AND EXIT OF THE HOME.</paragraph><paragraph></paragraph><paragraph>DR MADSEN MAY 20 FOR MONTHLY</paragraph> <paragraph>[Visit Date: 2024 by YUMI BALDERAS OT]:</paragraph><paragraph>SITUATION / BACKGROUND</paragraph><paragraph></paragraph><paragraph>REASON FOR SKILLED VISIT SUPPORTING MEDICAL NECESSITY: DECREASED FUNCTIONAL STATUS DUE TO WOUNDS AND UTIS</paragraph><paragraph></paragraph><paragraph>HOMEBOUND STATUS: TAXING EFFORT AND REQUIRES ASSISTANCE TO LEAVE HOME </paragraph><paragraph></paragraph><paragraph>ASSESSMENT</paragraph><paragraph>< /para graph><paragraph>PATIENT STATUS (CURRENT / CHANGES IN): PATIENT HAS DEMONSTRATED SLIGHT IMPROVEMENTS WITH UB STRENGTH AND ROM. PATIENT IS COMPLETING ADLS WITH SUA TO MAX A AND CUES. PATIENT CONTINUES TO DEMONSTRATE LIMITATIONS WITH STRENGTH, ACTIVITY TOLERANCE, ROM, AND BED MOBILITY INTERFERING WITH INDEPENDENCE AND PUTTING PATIENT AT RISK FOR FALLS AND BED SORES. </paragraph><paragraph></paragraph><paragraph>PATIENT / CAREGIVER RESPONSE TO SKILLED SERVICES / EDUCATION: PATIENT PROGRESSING WITH GOALS.</paragraph><paragraph></paragraph><paragraph>PLAN FOR NEXT VISIT: PATIENT WILL BENEFIT FROM SKILLED OCCUPATIONAL THERAPY TO ADDRESS UB STRENGTH, ADL RETRAINING, TRANSFER TRAINING/BED MOBILITY, O2 AND HEART RATE MONITORING, ACTIVITY TOLERANCE, SAFETY EDUCATION, AND IMPLEMENTATION OF UB HEP TO INCREASE INDEPENDENCE AND INCREASE QUALITY OF LIFE.</paragraph> Encounters Start Date/Time End Date/Time Encounter Type Admission Type Attending [facility] Facility Care Department Encounter ID Discharge Date Discharge Status Discharge Condition Discharge Reason Percent Goals Met 2025-03-24 00:00:00 2025-05-22 00:00:00 Outpatient RECERTIFIC ATION KASHIF PEREZ [facility] [id number] 49.25
--- OUTSIDE RECORDS SUMMARY | 2025-05-21 20:00 | XMS_ITS | Clinical Summary ---
Author Organization Unknown Care Team Providers Care Line Prep Cook Name Role Phone TYSON MURILLO, YUMIKO Unavailable [...] 00 GASTROPARESI S Active 09-25 00:00: 00 MERCHANDISING LEAD (CURRENT) USE OF INSULIN Active 09-25 00:00: [...] 09-25 00:00: 00 ATHSCL HEART DISEASE OF [place] CORONARY ARTERY W/O ANG PCTRS Active 09-25 [...] OF URINARY DEVICE Active 09-25 00:00: 00 HALF-WAY (CURRENT) USE OF ASPIRIN Active 09-25 00:00: 00 MERCHANDISING LEAD (CURRENT) USE OF 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 ICS/ANTIPLAT ELETS Active [...] mg chewable tablet 09-25 00:00: 00 Yes [id number] HEART DISEASE 1 tablet DAILY 1 tablet DAILY (route: oral) Med Classific ation: Hematolog ical Agents baclofen 10 mg tablet 09-25 00:00: 00 Yes [id number] MUSCLE SPASMS 1 tablet 2 TIMES DAILY 1 tablet 2 TIMES DAILY (route: oral) Med Classific ation: Locomotor System Basaglar KwikPen U-100 Insulin 100 unit/mL (3 mL) subcutaneou s 09-25 00:00: 00 Yes [id number] DIABETIC 42 unit BEDTIME 42 unit BEDTIME (route: subcutaneo us) Med Classific ation: Endocrine Cherelle Back and Body 500 mg-32.5 mg tablet 09-25 00:00: 00 Yes [id number] PAIN 1 tablet NEEDED 1 tablet NEEDED (route: oral) Med Classific ation: Analgesic , Anti-infl ammatory or Antipyret ic carvedilol 3.125 mg tablet 09-25 00:00: 00 Yes [id number] HEART RATE 1 tablet 2 TIMES DAILY 1 tablet 2 TIMES DAILY (route: oral) Med Classific ation: Cardiovas cular Therapy Agents clopidogrel 75 mg tablet 09-25 00:00: 00 Yes [id number] BLOOD THINNER 1 tablet DAILY 1 tablet DAILY (route: oral) Med Classific ation: Hematolog ical Agents folic acid 1 mg tablet 09-25 00:00: 00 Yes [id number] SUPPLEMENT 1 tablet DAILY 1 tablet DAILY (route: oral) Med Classific ation: Electroly te Balance-N utritiona l Products furosemide 40 mg tablet 09-25 00:00: 00 Yes [id number] FLUID 1 tablet DAILY 1 tablet DAILY (route: oral) Med Classific ation: Cardiovas cular Therapy Agents gabapentin 100 mg capsule 09-25 00:00: 00 Yes [id number] NERVE PAIN 2 capsule 3 TIMES DAILY 2 capsule 3 TIMES DAILY (route: oral) Med Classific ation: Central Nervous System Agents lamotrigine 100 mg tablet - 00:00: 00 Yes [id number] SEIZURES 1 tablet 2 TIMES DAILY 1 tablet 2 TIMES DAILY (route: oral) Med Classific ation: Central Nervous System Agents lamotrigine 150 mg tablet - 00:00: 00 Yes [id number] SEIZURES 1 tablet BEDTIME 1 tablet BEDTIME (route: oral) Med Classific ation: Central Nervous System Agents levofloxaci n 750 mg tablet - 00:00: 00 11-10 23:59 :00 No [id number] INFECTION 1 tablet DAILY 1 tablet DAILY (route: oral) Med Classific ation: Anti-Infe ctive Agents multivitami n tablet 09-25 00:00: 00 Yes [id number] SUPPLEMENT 1 tablet DAILY 1 tablet DAILY (route: oral) Med Classific ation: Electroly te Balance-N utritiona l Products ondansetron 4 mg disintegrat ing tablet 09-25 00:00: 00 Yes [id number] NAUSEA 1 tablet NEEDED 1 tablet NEEDED (route: oral) Med Classific ation: Gastroint estinal Therapy Agents Pacerone 400 mg tablet 09-25 00:00: 00 Yes [id number] HEART RATE 1 tablet 2 TIMES DAILY 1 tablet 2 TIMES DAILY (route: oral) Med Classific ation: Cardiovas cular Therapy Agents pantoprazol e 40 mg tablet,jossie yed release 09-25 00:00: 00 Yes [id number] ACID REFLUX 1 tablet DAILY 1 tablet DAILY (route: oral) Med Classific ation: Gastroint estinal Therapy Agents amoxicillin 875 mg-potassiu m clavulanate 125 mg tablet 5-21 00:00: 00 02-07 23:59 :00 No [id number] UTI 1 tablet EVERY AM 1 tablet EVERY AM (route: oral) Med Classific ation: Anti-Infe ctive Agents levofloxaci n 500 mg tablet 6-14 00:00: 00 03-10 23:59 :00 No [id number] DYSURIA 1 tablet DAILY 1 tablet DAILY (route: oral) Med Classific ation: Anti-Infe ctive Agents doxycycline hyclate 100 mg tablet 03-24 00:00: 00 03-31 23:59 :00 No [id number] DYSURIA 1 tablet 2 TIMES DAILY 1 tablet 2 TIMES DAILY (route: oral) Med Classific ation: Anti-Infe ctive Agents ertapenem 1 gram solution for injection 03-31 00:00: 00 04-03 23:59 :00 No [id number] UTI 1 g DAILY 1 g DAILY (route: injection) Med Classific ation: Anti-Infe ctive Agents lidocaine (PF) 10 mg/mL (1 %) injection solution 03-31 00:00: 00 04-03 23:59 :00 No [id number] DILUTING FOR ANTIBIOTIC Per instruc tions DAILY Per instructio ns DAILY (route: injection) Med Classific ation: Anestheti cs cefdinir 300 mg capsule 04-19 00:00: 00 04-29 23:59 :00 No [id number] UTI SYMPTOMS 1 capsule 2 TIMES DAILY 1 capsule 2 TIMES DAILY (route: oral) Med Classific ation: Anti-Infe ctive Agents heparin lock flush (porcine) 10 unit/mL intravenous solution 05-07 00:00: 00 05-17 23:59 :00 No [id number] BLOOD THINNER Per instruc tions DAILY Per instructio ns DAILY (route: intravenou s) Med Classific ation: Hematolog ical Agents sodium chloride 0.9 % (flush) injection syringe 05-07 00:00: 00 05-13 23:59 :00 No [id number] FLUSH Per instruc tions DAILY Per instructio ns DAILY (route: injection) Med Classific ation: Electroly te Balance-N utritiona l Products tobramycin 10 mg/mL intravenous solution 05-07 00:00: 00 05-13 23:59 :00 No [id number] ANTIBIOTIC 480 mg DAILY 480 mg DAILY [...] ALERT AND PLEASANT. PATIENT WAS SENT TO [facility] ON WEDNESDAY FOLLOWING RESIDENTIAL VISIT DUE TO SIGNS AND SYMPTOMS UTI. [...] THE PAST WHEN HE HAD IV THERAPY. RESIDENTIAL DISCUSSED AND REVIEWED ADMINISTRATION OF [facility] MEDICATION [facility]. PATIENT VERBALIZED UNDERSTANDING. RESIDENTIAL ALSO DISCUSSED RISK OF MEDICATION REACTION AND SIGNS AND SYMPTOMS OF REACTION. RESIDENTIAL INSTRUCTED PATIENT TO USE LIFELINE AND OR CALL 911 WITH ANY SEVERE REACTIONS. PATIENT VERBALIZED UNDERSTANDING OF ALL INSTRUCTION. RESIDENTIAL PERFORMED WOUND CARE TO LEFT LOWER EXTREMITY. [...] WOUNDS TO THE BILATERAL BUTTOCKS, CONFIRMATION CODE [id number]. PATIENT CONTINUES TO LAY ON BOTTOM IN BED MOST ALL OF THE TIME. RESIDENTIAL DISCUSSED WITH PATIENT GETTING A NEW MATTRESS [...] CALL FROM PROVIDER'S OFFICE.</paragraph><paragraph>INSTRUCTED PATIENT TO NOTIFY [facility] FOR ANY QUESTIONS OR CONCERNS [...] End Date/Time Encounter Type Admission Type Attending [facility] Facility Care Department Encounter ID Discharge Date Discharge Status Discharge Condition Discharge Reason Percent Goals Met 2025-03-24 00:00:00 2025-05-22 00:00:00 Outpatient RECERTIFIC ATION KASHIF PEREZ [facility] [id number] 49.25
== END 2025-05-11 23:59 | disposition home or self-care (01) ==
LOC: LAB 10:41
PROVIDERS: PCP Nurse Practitioner Family; Visit Provider Nurse Practitioner Family
DX: R33.8 Other retention of urine (principal)
CPT/HCPCS: 80053; 85025

== ENCOUNTER 2025-05-21 10:08 | Outpatient (CLI) | payer MEDICARE, SELFPAY ==
--- OUTSIDE RECORDS SUMMARY | 2023-01-18 05:30 | XMS_ITS | Continuity of Care Document ---
Author Organization [address] [place] [address] Address [address] [facility] [address] [place] [address] Phone Care Team Providers Care Brim Stiffener Name Role Phone Ruben Avila DPM Unavailable [...] Copied on Encounter NURSING FAC CARE SUBSEQ [address] [place] [address], [address] [place] [address], [place], [id number], tel:[phone] [facility] Acquired absence of right leg above kneeTinea unguiumType 2 diabetes mellitus with diabetic peripheral angiopathy without gangrene 3 Austin Miranda. [address] [facility], [address], [place], [address], . Referring Provider: Gustavo Leggett. PSYCH DIAGNOSTIC EVALUATION [address] [place] [address], [address] [place] [address], [place], [place], [id number], tel:[phone] [facility] Adjustment disorder with depressed mood 3 [place]. [place]. [facility] 30 360[facility], [address] [place] [address] 300, [place], [place], [id number], [place] tel:[phone] [facility] Depressed mood withincrease d sadness, Less motivation, (chief complaint) Major depressive disorder, single episode, moderateGene ralized anxiety disorder 3 Wade Russell. [place]. [address] [place] [address], [address] [place] [address] 300, [place], [place], [id number], [place] tel:[phone] [facility] Impacted cerumen, right ear 3 Rachid Kearnsisten. [place], [place]. Referring Provider: Gustavo Leggett. 1ST CARE SF/LOW MDM [address] [place] [address], [address] [place] [address] 300, [place], [place], [id number], tel:[phone] [facility] Initial assessment for Anxiety, Depression, occasional (chief complaint) Major depressive disorder, single episode, moderateGene ralized anxiety disorder 3 [place]. [address] [place] [address], [address] [place] [address], [place], [place], [id number], [place] tel:[phone] [facility] Encounter for dental examination and cleaning without abnormal findings 3 [place], [place], [place]. tel:[phone] Referring Provider: Gustavo Leggett. NURSING FAC CARE SUBSEQ [address] [place] [address], [address] [place] [address], [place], [place], [id number], [place] tel:[phone] [facility] Tinea unguiumType 2 diabetes mellitus with diabetic peripheral angiopathy without gangreneAbra joseph, left lesser toe(s), initial encounterAcq uired absence of right leg above knee 3 Austin Miranda. [address] [facility], [address], [place], [address], [place]. Referring Provider: Gustavo Leggett. [address] [place] [address], [address] [place], [place] [address], [place], [place], [id number], [place] tel:[phone] [facility] Diabetic eye exam (chief complaint) Type 2 diabetes mellitus without complication sVitreous degeneration , bilateralAge -related nuclear cataract, bilateralDry eye syndrome of bilateral lacrimal glands 2 Zaira Escobar. [address], [address], [place], [address], [place]. Referring Provider: Gustavo Leggett. [address] [place] [address], [address] [place] [address], [place], [place], [id number], [place] tel:[phone] [facility] No Information 2 Zaira Escobar. [address] [facility], [address], [place], [address], . Family History Family Member Type Diagnosis Age At Onset No Information Payers Payer name Insurance type Covered alliance party ID Sushila hussein(s) [employer] Medicare [place] [id number] Medicaid [place] [id number] Social History Type Description Quantity Date Captured [...] syndrome of bilateral lacrimal glands Impression/Plan - Vi treous floaters are present; however, no holes, breaks, or tears are evident. Related to Vitreous degeneration, bilateral Impression/Plan - No active diabetic retinopathy present in either eye. We will monitor at regular intervals. Related to Type 2 diabetes mellitus without complications Impression/Plan - Ca taracts are moderate and are affecting visual acuity; however, no treatment recommended at this time. We will monitor for progression. Related to Age-related nuclear cataract, bilateral Assessments Type Assessment Date assessment Acquired absence of right leg ab ove knee assessment Tinea unguium assessment Type 2 diabetes flor itus with diabetic peripheral angiopathy without gangrene Patient Care Teams Name Effective Dates (start - stop) Status Members No Information
--- NOTE | 2025-05-21 10:11 | CA_ITS ---
APPROVED REPORT EXAM: Comprehensive 2D, Doppler, and color-flow Echocardiogram Concrete Finisher Apprentice: Alondra Lora RT(R) Ht: 6 ft 0 in Wt: 265lbs BSA: 2.40 BP: 131/54 mmHg Indications: congestive heart failure, palpitations, shortness of breath. Echo Enhancing Agent Indication: Endocardial border delineation Agent(s) / Amount(s) Used: Definity 2 cc M-Mode Dimensions RVDd 2.29 cm (0.9-2.6) LA Diam 2.99 cm (1.9-4.0) LVDd 5.96 cm (3.5-5.7) LVDs 5.19 cm (3.5-5.7) IVSd 0.56 cm (0.6-1.1) PWd 0.64 cm (0.6-1.1) EF (Teich) 27.30% FS 12.90% EDV (Teich) 177.30 mL ESV (Teich) 128.90 mL LV Diastology E Decel Time 223 (160-240 msec) E/A Ratio 0.9 Mitral Valve MV E Max Alonso. 91.0 (40-130 cm/s) MV A Velocity 96.0 (40-130 cm/s) E/A Ratio 0.94 MV PHT 65.0 ms Left Ventricle The left ventricle is normal size. Left ventricular systolic function is mildly reduced. There is normal left ventricular wall thickness. There is mild global hypokinesis present. There is moderate hypokinesis of the inferior and inferoseptal LV carrasco. The septum is asynchronous. The left ventricular diastolic function is indeterminate. No left ventricle thrombus noted on this study. LVEF is 45% Right Ventricle The right ventricle is mildly dilated. The right ventricular systolic function is mildly reduced. Atria The left atrium is mildly dilated. The right atrium is mildly dilated. There is no color Doppler evidence of interatrial shunt. Aortic Valve The aortic valve is mildly thickened. There is no hemodynamically significant aortic valvular stenosis. Trace aortic regurgitation is present. Mitral Valve The mitral valve is normal in structure. No evidence of mitral valve stenosis. Trace mitral regurgitation is present. Tricuspid Valve The tricuspid valve leaflets are thin and pliable. Trace tricuspid regurgitation. There is insufficient TR jet to estimate RVSP. Pulmonic Valve The pulmonary valve is grossly normal in structure. Trace pulmonic valve regurgitation is present. Great Vessels The aortic root is normal in size. IVC is normal in size and collapses >50% with inspiration. Pericardium There is no pericardial effusion. Other Information Study Quality: Technically Difficult Conclusion Technically difficult study. Mildly reduced LV systolic function (LVEF 45%). Moderate hypokinesis of the inferior and inferoseptal LV carrasco. The septum is asynchronous. Mild RV dilation with mild reduction in RV function. Mild biatrial dilation. No significant valvular stenosis or regurgitation. Electronically signed by : Jenny English MD 05/21/2025 21:22:07
--- OUTSIDE RECORDS SUMMARY | 2025-05-21 10:11 | XMS_ITS | Clinical Summary ---
Author Organization [facility] Address [address] [place] [address] Phone Care Team Providers Care Pairer Substandard Name Role Phone Mckenna MURILLO, Britton Clifford [ ] Conditions or Problems Problem Name Problem Code Onset Date Status Entry Date Provider Comment Standard Description Annotate DM Non-pressure chronic ulcer of left heel, black/dry (document depth) 145215458 (SNOMED CT) 09/19 Active 09/19 Crys Alfredo Chronic ulcer of foot Infection, local skin/subcuta neous tissue 591924877 (SNOMED CT) 09/19 Active 09/19 Crys Alfredo Localized infection of skin AND/OR subcutaneous tissue Gangrene with DM II PVD 57827145 (SNOMED CT) 09/19 Active 09/19 Crys Alfredo Type 2 diabetes mellitus DM II with diabetic PVD 097996918 (SNOMED CT) Active Crys Alfredo Peripheral vascular disease Diabetes mellitus, type II with peripheral vascular disorder, with gangrene 555133254 (SNOMED CT) Resolved Crys Alfredo Peripheral circulatory disorder due to type 2 diabetes mellitus Presence of ambrose catheter 520959331 (SNOMED CT) Resolved Crys Alfredo Urinary catheter in situ Benign Essential Hypertension 88077744 (SNOMED CT) Active Crys Alfredo Benign hypertension DM II with diabetic polyneuropat hy E11.42 (ICD-10-CM) Active Crys Alfredo Type 2 diabetes mellitus with diabetic polyneuropathy Other obesity due to excess calories 264271185 (SNOMED CT) Active Myranda Zelaya Simple obesity Presence of ambrose catheter 899672754 (SNOMED CT) Removed Bibi Edelen Urinary catheter in situ Pressure ulcer of left buttock, stage 1 23097026799 441551 (SNOMED CT) Active Bibi Edelen Pressure injury of buttock stage I Pressure ulcer of right buttock, stage 1 75258808579 107 (SNOMED CT) Active Bibi Edelen Pressure injury of right buttock stage I Cellulitis of left lower limb 714160344 (SNOMED CT) Active Bibi Edelen Cellulitis of leg, excluding foot Diabetes mellitus, type II with peripheral vascular disorder, with gangrene 070288243 (SNOMED CT) Removed Bibi Edelen Peripheral circulatory disorder due to type 2 diabetes mellitus Hx of DVT 637512166 (SNOMED CT) Active Bibi Edelen History of deep vein thrombosis Amputation of right leg above knee 559440096 (SNOMED CT) Active Bibi Edelen Amputated above knee Diabetes mellitus, type II with peripheral vascular disorder, without gangrene 979906172 (SNOMED CT) Inactive Bibi Edelen Peripheral circulatory disorder due to type 2 diabetes mellitus Diabetes mellitus, type II with peripheral neuropathy 78055507553 07 (SNOMED CT) Inactive Bibi Edelen Peripheral neuropathy due to type 2 diabetes mellitus Hypertension 60656617 (SNOMED CT) Inactive Bibi Edelen Hypertensive disorder Medications Medication Instructions Start Date Stop Date Generic Name NDC Provider DOXYCYCLINE HYCLATE 100 MG CAPS Take 1 capsule by mouth 2 (Two) Times a Day for 10 days. doxycycline hyclate 37924547726 QIE qieuser AMOXICILLIN-POT CLAVULANATE 875-125 MG TABS 1 {tbl} Oral amoxicillin-pot clavulanate 04345510375 QIE qieuser ATORVASTATIN CALCIUM 40 MG TABS Take 2 tablet by mouth every night atorvastatin 08583442635 Daria Minor METFORMIN HCL 500 MG TABS Take 2 tablet by mouth twice a day metformin 99254536724 Daria Minor CLOPIDOGREL BISULFATE 75 MG TABS Take 1 tablet by mouth once a day clopidogrel 59310020715 Daria Minor PEG 3350 17 GM PACK Take 17 gram by mouth once a day as needed polyethylene glycol 3350 56878565027 Daria Minor LAMOTRIGINE 100 MG TABS Take 1 tablet by mouth every morning lamotrigine 50042265470 Daria Minor FINASTERIDE 5 MG TABS Take 1 tablet by mouth once a day finasteride 92135596653 Daria Minor DOCUSATE SODIUM 250 MG CAPS Take 1 capsule by mouth twice a day docusate sodium 68394619057 Daria Minor ASPIRIN 81 MG TBEC Take 1 tablet by mouth once a day aspirin 73698306921 Daria Minor FUROSEMIDE 40 MG TABS Take 1 tablet by mouth once a day furosemide 18574624277 Daria Minor Thera M Plus (ferrous fumarat) 9 mg iron-400 mcg tablet Take 1 tablet by mouth once a day vvjphxeq-qlgp-f w-pbestcr-wqbp 28135427134 Daria Minor FERROUS SULFATE 325 (65 Fe) MG TABS Take 1 tablet by mouth every morning ferrous sulfate 84085117338 Daria Minor LAMOTRIGINE 25 MG TABS Take 10 tablet by mouth every night lamotrigine 87807141204 Daria Minor BACLOFEN 20 MG TABS Take 1 tablet by mouth as needed baclofen 20570315312 Daria Minor TAMSULOSIN HCL 0.4 MG CAPS Take 2 capsule by mouth once a day tamsulosin 32216392240 Daria Minor DIAZEPAM 2 MG TABS Take 1 tablet by mouth twice a day as needed diazepam 86055142331 Daria Minor LOSARTAN POTASSIUM 50 MG TABS Take 1 tablet by mouth once a day losartan 49997470568 Daria Minor BUSPIRONE HCL 5 MG TABS Take 1 tablet by mouth three times a day buspirone 12720730547 Daria Minor METOPROLOL SUCCINATE ER 25 MG [id number] Take 1 tablet by mouth once a day metoprolol succinate 09445733864 Daria Minor ubrogepant Take 1 tablet by mouth once a day as needed UBRELVY Daria Minor GLIPIZIDE 5 MG TABS Take 1 tablet by mouth twice a day glipizide 31851742562 Daria Minor ubrogepant Take 1 tablet by mouth Daily As Needed. UBRELVY QIE qieuser TAMSULOSIN HCL 0.4 MG CAPS Take 2 capsules by mouth Daily. tamsulosin 23830138041 QIE qieuser PEG 3350 17 GM PACK Take 17 g by mouth Daily As Needed. polyethylene glycol 3350 47871897245 QIE qieuser Thera M Plus (ferrous fumarat) 9 mg iron-400 mcg tablet Take 1 tablet by mouth Daily. ejkrjcpy-lvhv-c l-bpmskew-eing 51765969903 QIE qieuser METOPROLOL SUCCINATE ER 25 MG [id number]-[id number] Take 1 tablet by mouth Daily. metoprolol succinate 65332564975 QIE qieuser METFORMIN HCL 500 MG TABS Take 2 tablets by mouth 2 (Two) Times a Day With Meals. metformin 27390074473 QIE qieuser LOSARTAN POTASSIUM 50 MG TABS Take 1 tablet by mouth Daily. losartan 66443080156 QIE qieuser LAMOTRIGINE 25 MG TABS Take 10 tablets by mouth Every Night. lamotrigine 01792675018 QIE qieuser LAMOTRIGINE 100 MG TABS Take 1 tablet by mouth Every Morning. lamotrigine 46419990881 QIE qieuser GLIPIZIDE 5 MG TABS Take 1 tablet by mouth 2 (Two) Times a Day Before Meals. glipizide 64842153840 QIE qieuser FUROSEMIDE 40 MG TABS Take 1 tablet by mouth Daily. furosemide 32426135960 QIE qieuser FINASTERIDE 5 MG TABS Take 1 tablet by mouth Daily. finasteride 42372418214 QIE qieuser FERROUS SULFATE 325 (65 Fe) MG TABS Take 1 tablet by mouth Daily With Breakfast. ferrous sulfate 31414483441 QIE qieuser DOXYCYCLINE HYCLATE 100 MG CAPS Take 1 capsule by mouth 2 (Two) Times a Day for 7 days. doxycycline hyclate 01933352494 QIE qieuser DOCUSATE SODIUM 250 MG CAPS Take 1 capsule by mouth 2 (Two) Times a Day. docusate sodium 59013694779 QIE qieuser DIAZEPAM 2 MG TABS Take 1 tablet by mouth 2 (Two) Times a Day As Needed for Anxiety. diazepam 56314930729 QIE qieuser CLOPIDOGREL BISULFATE 75 MG TABS Take 1 tablet by mouth Daily. clopidogrel 30237428088 QIE qieuser BUSPIRONE HCL 5 MG TABS Take 1 tablet by mouth 3 (Three) Times a Day. buspirone 57754332744 QIE qieuser BACLOFEN 20 MG TABS Take 1 tablet by mouth As Needed for Muscle Spasms. baclofen 62797926372 QIE qieuser ATORVASTATIN CALCIUM 40 MG TABS Take 2 tablets by mouth Every Night. atorvastatin 58257288050 QIE qieuser ASPIRIN 81 MG TBEC Take 1 tablet by mouth Daily. OTC aspirin 07898116956 QIE qieuser AMOXICILLIN-POT CLAVULANATE 875-125 MG TABS Take 1 tablet by mouth 2 (Two) Times a Day for 7 days. amoxicillin-pot clavulanate 86336906847 QIE qieuser Medications Administered No information available. [...]
--- OUTSIDE RECORDS SUMMARY | 2025-05-21 10:12 | XMS_ITS | Referral Summary ---
Author Organization [employer] ([place], [place], [place], [place]) Address [address] [place] [address] Care Team Providers Care Embedded Developer Name Role Phone Unavailable Primary Care [...]
--- OUTSIDE RECORDS SUMMARY | 2025-05-21 10:12 | XMS_ITS | Clinical Summary ---
Author Organization [facility] Address [address] [place] [address] Care Team Providers Care Cement Truck Driver Name Role Phone John Paul Orellana MD Primary Care Provider [phone] Allergies Active Allergy Reactions Criticality Noted Date [...] (04/20/2022): Added automatically from request for surgery [id number] Resolved Problems Problem Noted Date Diagnosed Date [...] drink first t clarita in the morning (EYE-SPACE TECHNOLOGIST) to steady your nerves or to get [...] A1C 10/18/202204/2022, 10/28/2021, 07/12/2020, Additional history exists [id number] Vaccine (3 - 2024- season) 2025 12/17/2020, 11/20/2020 [facility]-Influenza Vaccine (#1) 2025 08/21/2020, [...] ORDERABLES Final R esult [facility] [address] [place] [address] * (ABNORMAL) Hemoglobin A1c (04/20/2022 11:09 AM [...] Adults <6.0% Children and Adolescents <7.5% Source: [place] [employer]. Standards of medical care in diabetes,2017. Diabetes Care.2017:40 (suppl 1):S1-S135. HbA1c assay performed by an ion-exchange chromatography method that is certified traceable to the DCCT. 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
--- OUTSIDE RECORDS SUMMARY | 2025-05-21 10:12 | XMS_ITS | Encounter Summary ---
Author Organization [facility] Address [address] [place] [address] Care Team Providers Care Bullet Lubricant Mixer Name Role Phone Gustavo Leggett MD Primary Care Provider [phone] Reason for Visit * Reason Onset Date Comments [facility] AND RX REFILL 08/12/2020 Encounter Details Date Type Department Care Team (Late st Contact Info) Description 08/12/2020 Telephone [facility] NEUROS[facility]ERY [address] [facility] [address] [place] [address] Tra Gregg PA-C [address] [facility] [address] [place] [address] [facility] - [facility] HEALTH AND [...] 9:05 AM EST Office note faxed to [employer] ([phone]). * Telephone Encounter - Betty Ramires MA - 08/12/2020 1:14 PM EST Lex: 02/15/2020 Diazepam 5MG 1954 60 30 [facility] 2 03/09/2020 Diazepam 5MG 1954 60 30 [facility] 2 04/12/2020 Diazepam 5MG 1954 60 30 [facility] 2 05/09/2020 Diazepam 5MG 1954 90 30 [facility] 2 06/10/2020 Diazepam 5MG 1954 60 20 [facility] 2 07/18/2020 Diazepam 5MG 1954 30 15 [facility] 1 * Telephone Encounter - Francisca Jensen [...] HE HAS FOUR LEFT. HIS PHARMACY IS [facility] IN [place], [place]. PLEASE ADVISE. SINA CAN BE REACHED AT [phone], ASK FOR BRANDEE OR ABEBE. THE PATIENT CAN BE REACHED AT [phone] THANK YOU! documented in this encounter Plan [...] documented as of this encounter Care Teams Bullet Lubricant Mixer Relationship Specialty Start Date End Date Gustavo Leggett MD [address] [place] [address] [place] [address] PCP - General Adolescent Medicine 07/14/23 documented as of this encounter
--- OUTSIDE RECORDS SUMMARY | 2025-05-21 10:12 | XMS_ITS | Encounter Summary ---
Author Organization [facility] Address [address] [place] [address] Care Team Providers Care Preservationist Name Role Phone John Paul Orellana MD Primary Care Provider [phone] Encounter Details Date Type Department Care Team (Late st Contact Info) Description 08/04/2023 Community Orders Community Practice [address] [place] [address] Shree Anand MD [address] [facility] [address] [place] [address] Parkinsonian features (Primary Dx) Social [...] drink first t clarita in the morning (EYE-PATIENT TRANSPORT ORDERLY) to steady your nerves or to get [...] documented as of this encounter Care Teams Preservationist Relationship Specialty Start Date End Date John Paul Orellana MD [address] [place] [address] PCP - General 01/24/21 documented as of this encounter
--- OUTSIDE RECORDS SUMMARY | 2025-05-21 10:12 | XMS_ITS | Clinical Summary ---
Author Organization [facility] Address [address] [place] [address] Care Team Providers Care Pleater Name Role Phone Gustavo Leggett MD Primary Care Provider [phone] Allergies Active Allergy Reactions Criticality Noted Date [...] headaches 07/07/2023 Coronary artery disease invo [place]ving [place] coronary artery of [place] heart without angina pectoris 07/07/2023 Pressure injury of buttock, stage 1 06/13/2023 Pressure ulcers of skin of multiple topographic sites 06/13/2023 Overview (06/17/2023): Added automatically from request for surgery [id number] Cellulitis of left foot 06/13/2023 Overview (06/17/2023): Added automatically from request for surgery [id number] Acute encephalopathy 06/21/2022 Adrenal insufficiency 06/21/2022 Dysphagia [...] (05/02/2019): Added automatically from request for surgery [id number] Complicated migraines H/O traumatic brain injury Resolved Problems Problem Noted Date Diagnosed Date Resolved Date Confusion 05/11/2022 05/14/2022 Somnolence 05/09/2022 05/14/2022 Cellulitis 04/28/2019 12/01/2021 Cervical disc herniation 04/28/201901/2020 Overview (05/03/2019): Added automatically from request for surgery [id number] Immunizations Immunization Administration Dates Next Due COVID-19 [...] drink = 0.6 oz pur e alcohol) [facility] Utilities Answer Date Recorded In the past [...] Depression Severity Measure Score 2 08/09/2023 [facility] - [...] GED or equivalent No 09/01/2024 Preferred Language Vincentian 09/01/2024 PHQ-2 Answer Date Recorded Patient Health [...] COLOGUARD 02/12/2022 02/12/2019 COLORECTAL CANCER SCREENING 02/12/2022 LIPID PANEL 08/01/2024 08/01/2023 HEMOGLOBIN A1C 03/03/2025 09/02/2024, 05/0 12/2023, 08/01/2023, Additional history exists COVID-19 Vaccine (5 - 2024-2 6 season) 2025 08/25/2022, 06/03/2022, 12/17/2020, Additional history exists INFLUENZA VACCINE 06/13/2025 06/13/2022, , 08/21/2020, Additional history exists TDAP/TD VACCINES (3 - Td or Tdap) 04/22/2029 019, 04/22/2019 HEPATITIS C SCREENING Completed 05/28/2022, 022 Medical Devices Implanted Type Area Contact Representative Device Identifier Shelf Expiration Date Model / Serial / Lot Fltr Jug Vena Cava Dickens Del - [id number] Implanted:Qty: 1 on 05/02/2019 by Pedro Zapien MD at [facility] Implant BARD PERIPHERAL VASCULAR [id number] / / [id number] Description:MRI safety: Non- clinical testing demonstrated that the Francine Vena Cava Filter is MR Conditional. A patient with this implant can be scanned safely immediately after placement under the following conditions: Static magnetic field of 3-Jessica or 1.5-Jessica Spatial gradient magnetic field of 720-Gauss/cm or less Maximum MR system reported gxnan-imnb-ufddlhoz specific absorption rate (CHRISTEL) of 2-W/kg in the normal operating mode Hemost Abs Surgifoam Sz100 8x12 10mm - [id number] Implanted:Qty: 1 on 07/17/2020 by Tyree Tan MD at [facility] Implant Spine Cervical [employer] DIV [employer] J AND J 1974 / / Kt Seal Hemos Abs Floseal Matrx Fast/Prep 10ml - [id number] Implanted:Qty: 1 on 07/17/2020 by Tyree Tan MD at [facility] Implant Spine Cervical [facility] 10/08/2021 [id number] / / [id number] Putty Dbm Vandervoort 6cc - [id number] - [id number] Implanted:Qty: 1 on 07/17/2020 by Tyree Tan MD at [facility] Implant Spine Cervical [employer] 06/05/2022 [id number] / [id number] / Spacr Lrd Spine Endoskeleton Nanolock Tc 6deg [id number] Sm - [id number] Implanted:Qty: 1 on 07/17/2020 by Tyree Tan MD at [facility] Implant Spine Cervical [employer] 09/24/2024 [id number] / / [id number] Coil Marlin Emb Fill Complex Sft 2mm 2cm - [id number] Implanted:Qty: 1 on 09/07/2024 by Jared Marcano MD at [facility] Implant [facility] 04/05/2031 [id number] / / [id number] Coil Marlin Emb Fill Complex Jsft 15cm - [id number] Implanted:Qty: 1 on 09/07/2024 by Jared Marcano MD at [facility] Implant [facility] 03/21/2030 [id number] / / [id number] Coil Marlin Emb Fill Complex Jsft 8mm 60cm - [id number] Implanted:Qty: 1 on 09/07/2024 by Jared Marcano MD at [facility] Implant PENUMBRA 07/19/2030 [id number] / / [id number] Procedures Procedure Name Priority Date/Time Associated Diagnosis Comments HEMOGLOBIN A1C Routine 09/02/2024 3:35 AM EST LIPID PANEL Routine 08/01/2023 4:42 AM EST from Last 3 Months or Most Recently Relevant to Health Maintenance Results * (ABNORMAL) Hemoglobin A1c (09/02/2024 3:35 AM EST) Pathologist [facility] Hemoglobin A1C 7.60(H) 4.80 - 5.60 % 09/02/2024 4:54 AM EST [facility] Blood Venipuncture / Unknown 09/02/2024 3:35 AM EST 09/02/2024 4:29 AM EST Narrative [facility] - 09/02/2024 4:54 AM EST Hemoglobin A1C Ranges: Increased Risk for Diabetes 5.7% to 6.4% Diabetes >= 6.5% Diabetic Goal < 7.0% Alondra Lanza MD LAB BLOOD ORDERABLES Fi nal Result [facility]
[address] [place] [address], * (ABNORMAL) Lipid Panel (08/01/2023 4:42 AM EST) Total Cholesterol 148 0 - 200 mg/dL 08/01/2023 5:39 AM EST [facility] Triglycerides 115 0 - 150 mg/dL 08/01/2023 5:39 AM EST [facility] HDL Cholesterol 37(L) 40 - 60 mg/dL 08/01/2023 5:39 AM EST [facility] LDL Cholesterol 90 0 - 100 mg/dL 08/01/2023 5:39 AM EST [facility] VLDL Cholesterol 21 5 - 40 mg/dL 08/01/2023 5:39 AM EST [facility] LDL/HDL Ratio 2.38 08/01/2023 5:39 AM EST [facility] Blood Venipuncture / Unknown 08/01/2023 4:42 AM EST 08/01/2023 4:57 AM EST [facility] - 08/01/2023 5:39 AM [...] Very High >189 mg/dL us January Jas[facility] LAB BLOOD ORDERABLES Fi nal Result [facility]
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
--- OUTSIDE RECORDS SUMMARY | 2025-05-21 10:12 | XMS_ITS | Encounter Summary ---
Author Organization [facility] Address [address] [place] [address] Care Team Providers Care Boat Loader Helper Name Role Phone Gustavo Leggett MD Primary Care Provider [phone] Reason for Visit * Reason Onset Date Comments SURGERY QUESTIONS 02/08/2020 Encounter Details Date Type Department Care Team (Late st Contact Info) Description 02/08/2020 Telephone [facility] [address] [facility] [address] [place] [address] Tyree Tan MD SURGERY QUESTIONS [...] documented as of this encounter Care Teams Boat Loader Helper Relationship Specialty Start Date End Date Gustavo Leggett MD [address] [facility] [address] [place] [address] PCP - General Adolescent Medicine 07/14/23 documented as of this encounter
--- OUTSIDE RECORDS SUMMARY | 2025-05-21 10:12 | XMS_ITS | Continuity of Care Document ---
Author Organization [facility] Address [address] [place] [address] Care Team Providers Care Senior Quality Engineer Name Role Phone John Paul Orellana MD Primary Care Provider [phone] Encounters Date Type Department Care Team Description 05/23/2022 12:45 PM EDT - 05/23/2022 11:59 PM EDT [facility] Encounter [facility] [address] [place] [address] System, Provider Not In Discharge Disposition: Home or Self Care 05/20/2022 3:19 AM EDT - 05/23/2022 2:00 PM EDT Hospital Encounter [facility] 3 Central Intensive Care Unit [address] [place] [address] Luz Kumari MD Knighton, Martha A, MD Acute encephalopathy (Primary Dx); Acute respiratory failure with hypoxia Discharge Disposition: [facility] 04/13/2022 9:45 AM EDT Office Visit [id number] [place] [address] Cecil Carrillo MD Meningioma (Primary Dx) 04/01/2022 1:12 PM EDT - 04/05/2022 5:41 PM EDT Hospital Encounter [facility] [address] [place] [address] Carter Barajas DO Status epilepticus (Primary Dx) Discharge Disposition: [facility] Allergies Active Allergy Reactions Criticality Noted [...] Father Social History Smoking Status as of 05/21/2025 Tobacco Use Types Packs/Day Years Used Date [...] of28 resultswithin the time period is included. [facility] Glucose Glucometer 139 71 - 139 mg/dL 05/23/2022 11:59 AM EDT [facility] Serum 05/23/2022 11:5 5 AM EDT 05/23/2022 11:59 AM EDT us Enedina Chavis MD LAB BLOOD ORDERABLES Final Result [facility] ([id number]) [address] [place] [address] [facility] [address] [place] [address] * COVID FLU RSV PCR Panel: Reason for Testing: Asymptomatic Transfer to Another Facility for Patient Placement (05/22/2022 3:23 PM EDT) Only the most recent of2 resultswithin the time period is included. [facility] COVID, FLU, RSV Source Nasopharyngeal 05/22/2022 2:27 PM EDT [facility] FLU A Result Not Detected Not Detected 05/22/2022 4:13 PM EDT [facility] FLU B Result Not Detected Not Detected 05/22/2022 4:13 PM EDT [facility] RSV Result Not Detected Not Detected 05/22/2022 4:13 PM EDT [facility] COVID-19 Result Not Detected Not Detected 05/22/2022 4:13 PM EDT [facility] COVID Result Comment (note) This test [...] and Drug Administration. 05/22/2022 4:13 PM EDT [facility] Reason for Testing ASYMPTOMATIC TRANSFER TO ANOTHER FACILITY FOR PATIENT PLACEMENT 05/22/2022 2:27 PM EDT [facility] Nasopharyngeal 05/22/2022 3: 23 PM EDT 05/22/2022 3:33 PM EDT Enedina Chavis MD MICROBIOLOGY [facility] Final Result [facility] ([id number]) [id number] [facility] [address] [place] [address] [facility] * [place] Modified Barium Swallow (05/22/2022 [...] 4.5 - 11.0 10*3/uL 05/22/2022 5:03 AM [facility] Red Blood Count 3.24(L) 4.5 - 5.9 10*6/uL 05/22/2022 5:03 AM [facility] Hemoglobin 9.0(L) 13.5 - 17.5 g/dL 05/22/2022 5:03 AM [facility] Hematocrit 28.6(L) 41.0 - 53.0 % 05/22/2022 5:03 AM [facility] Mean Corpuscular Volume 88.3 80.0 - 100.0 fL 05/22/2022 5:03 AM [facility] Mean Corpuscular Hemoglobin 27.8 26.0 - 34.0 pg 05/22/2022 5:03 AM [facility] Mean Corpuscular HGB Conc 31.5 31.0 - 37.0 g/dL 05/22/2022 5:03 AM [facility] Red Cell Distribution Width-CV 13.9 12.0 - 16.8 % 05/22/2022 5:03 AM [facility] Platelet Count 244 140 - 440 10*3/uL 05/22/2022 5:03 AM [facility] Mean Platelet Volume 10.0 8.4 - 12.4 fL 05/22/2022 5:03 AM [facility] Diff Type Hospital CBC w/AutoDiff (arb'U) 05/22/2022 5:03 AM [facility] Neutrophils % 75.4 45 - 80 % 05/22/2022 5:03 AM [facility] Lymphocyte % 14.7(L) 15 - 50 % 05/22/2022 5:03 AM [facility] Monocyte % 6.7 0 - 15 % 05/22/2022 5:03 AM [facility] Eosinophil% 1.5 0 - 7 % 05/22/2022 5:03 AM [facility] BASO% 0.4 0 - 2 % 05/22/2022 5:03 AM [facility] Immature Granulocyte% 1.3(H) 0.0 - 1.0 % 05/22/2022 5:03 AM EDT [facility] Nucleated RBC % 0 0 /100(WBC) 05/22/2022 5:03 AM EDT [facility] Neutrophil Abs 7.09 2.0 - 8.8 10*3/uL 05/22/2022 5:03 AM EDT [facility] Lymphocyte-Absol loreto 1.38 0.7 - 5.5 10*3/uL 05/22/2022 5:03 AM EDT [facility] Monocyte Absolute 0.63 0.0 - 1.7 10*3/uL 05/22/2022 5:03 AM EDT [facility] EOS-Absolute 0.14 0.0 - 0.8 10*3/uL 05/22/2022 5:03 AM EDT [facility] Basophil Abs 0.04 0.0 - 0.2 10*3/uL 05/22/2022 5:03 AM EDT [facility] Immature Granulocyte Abs 0.12(H) 0.00 - 0.10 10*3/uL 05/22/2022 5:03 AM T [facility] Whole Blood BLOOD SPECIMEN FROM PATIENT / Unknown 05/22/2022 4:44 AM EDT 05/22/2022 4:52 AM EDT us Enedina Chavis MD LAB BLOOD ORDERABLES Final Result [facility] ([id number]) [address] [place] [address] [facility] [address] [place] [address] * (ABNORMAL) Magnesium (05/22/2022 4:44 AM EDT) Only the most recent of5 resultswithin the time period is included. Magnesium 1.5(L) 1.6 - 2.6 mg/dL 05/22/2022 5:09 AM EDT [facility] Plasma BLOOD SPECIMEN FROM PATIENT / Unknown 05/22/2022 4:44 AM EDT 05/22/2022 4:52 AM EDT us Luz Kumari MD LAB BLOOD ORDERABLES Final Result [facility] ([id number]) [address] [place] [address] [facility] [address] [place] [address] * (ABNORMAL) Basic Metabolic Panel (BMP) (05/22/2022 4:44 AM EDT) Only the most recent of5 resultswithin the time period is included. Sodium 137 136 - 145 mmol/L 05/22/2022 5:10 AM [facility] Comment: (note) Excess protein and/or lipids can falsely decrease sodium levels (pseudo hyponatremia). Potassium 3.9 3.5 - 5.1 mmol/L 05/22/2022 5:10 AM [facility] Chloride 107 98 - 107 mmol/L 05/22/2022 5:10 AM [facility] Comment: (note) Falsely elevated chloride levels can be seen in patients taking medications which contain bromide. Carbon Dioxide 23 22 - 29 mmol/L 05/22/2022 5:10 AM [facility] Anion Gap 7 5 - 13 (arb'U) 05/22/2022 5:10 AM [facility] Comment: (note) Calculation- Na - (Cl + CO2) Glucose 155(H) 71 - 139 mg/dL 05/22/2022 5:10 AM [facility] Comment: (note) Reference range based on inpatient hypo/hyperglycemic treatment levels. A random glucose =/>200 is concerning for poor control. Blood Urea Nitrogen (BUN) 17 8 - 26 mg/dL 05/22/2022 5:10 AM [facility] Creatinine-Bloo d 0.48(L) 0.73 - 1.18 mg/dL 05/22/2022 5:10 AM [facility] BUN/Creatinine Ratio 35.4 RATIO 05/22/2022 5:10 AM [facility] Estimated GFR >60 >60 /1.73 m2 05/22/2022 5:10 AM EDT [facility] Comment: (note) Results do not take into account body mass. Valid for patients 18 to 70 years of age. Estimated GFR if -Lissy n >60 >60 /1.73 m2 05/22/2022 5:10 AM EDT [facility] Comment: (note) Results do not take into account body mass. Valid for patients 18 to 70 years of age. Calcium 7.9(L) 8.4 - 10.2 mg/dL 05/22/2022 5:10 AM EDT [facility] Plasma BLOOD SPECIMEN FROM PATIENT / Unknown 05/22/2022 4:44 AM EDT 05/22/2022 4:52 AM EDT us Enedina Chavis MD LAB BLOOD ORDERABLES Final Result [facility] ([id number]) [address] [id number] [facility] [address] [place] [address] * Echo Doppler 2D Mmode Color Complete (05/21/2022 3:26 PM EDT) 05/21/2022 2:54 PM EDT Narrative [facility] - 05/21/2022 6:45 PM EDT REVIEWING YOUR TEST RESULTS IN [facility] IS NOT A SUBSTITUTE FOR DISCUSSING THOSE RESULTS WITH YOUR HEALTH CARE PROVIDER. PLEASE CONTACT YOUR PROVIDER VIA [facility] TO DISCUSS ANY QUESTIONS OR CONCERNS YOU MAY HAVE REGARDING THESE TEST RESULTS. CARDIOLOGY REPORT FACILITY: [facility] PATIENT NAME/: VITALY CASILLAS 1955 UNIT/AGE/GENDER: AGE: 67 YR GENDER: M UNIT NUMBER: [id number] ACCESSION NUMBER: [id number] DATE OF EXAM: 05/21/2022 14:54 EXAMINATION(S): ECHO DOPPLER 2D MMODE SPECT COLOR COMPLETE FINAL REPORT Procedure Information Procedure type: Echo Proc. sub type: TTE procedure: ECHO DOPPLER 2D MMODE SPECT COLOR COMPLETE. Start date time: 05/21/2022 Blood pressure: 118 / 60 mmHg Contrast medium: Lumason Accession no: [id number] Procedure Staff Referring Physician: Enedina Chaves Computer Assembler: Kiki Harper Interpreting Physician: [place] Janitor Caretaker Bennie Montano Clinical Indications Syncope. Physician Conclusions [...] - 05/21/2022 REVIEWING YOUR TEST RESULTS IN [facility] IS NOT A SUBSTITUTE FORDISCUSSING THOSE RESULTS WITH YOUR HEALTH CARE PROVIDER. PLEASE CONTACT YOUR PROVIDER VIA [facility] TO DISCUSS ANY QUESTIONS ORCONCERNS YOU MAY HAVE REGARDING THESE TEST RESULTS. CARDIOLOGY REPORT FACILITY: [facility] PATIENT NAME/: VITALY CASILLAS 1955 UNIT/AGE/GENDER: AGE: 67 YR GENDER: M UNIT NUMBER: [id number] ACCESSION NUMBER: [id number] DATE OF EXAM: 05/21/2022 14:54 EXAMINATION(S): ECHO DOPPLER 2D MMODE SPECT COLOR COMPLETE FINAL REPORT ProcedureInformation Procedure type: Echo Proc. sub type: TTE procedure: ECHO DOPPLER 2D MMODE SPECT COLORCOMPLETE. Start date time: 05/21/2022 Bloodpressure: 118 / 60 mmHg Contrast medium: Lumason Accession no: [id number] Procedure Staff Referring Physician: Enedina Chaves Computer Assembler: Kiki Harper Interpreting Physician: *[place] Janitor Caretaker Bennie Montano Clinical Indications Syncope. Physician Conclusions [...] CARE PROVIDER. PLEASE [facility] YOUR [facility]ER [facility] TO DISCUSS ANY QUESTIONS OR CONCERNS YOU MAY HAVE REGARDING THESE TEST RESULTS. RADIOLOGY REPORT FACILITY: [facility] UNIT/AGE/GENDER: J.ICU IN AGE:67 Y SEX:M PATIENT NAME/: VITALY CASILLAS LAYNE 1955 UNIT NUMBER: [id number] ACCESSION NUMBER: [id number] CTA Head CTA Neck Examination Date: 05/21/2022 [...] and Basilar Arteries: Codominant. No significant stenosis. door to door fundraising collector: Unremarkable. Superior Cerebellar and PICAs: Patent proximally. [...] - 05/21/2022 REVIEWING YOUR TEST RESULTS IN [facility] IS NOT A SUBSTITUTE FORDISCUSSING THOSE RESULTS WITH YOUR HEALTH CARE PROVIDER. PLEASE CONTACT YOUR PROVIDER VIA [facility] TO DISCUSS ANY QUESTIONS ORCONCERNS YOU MAY HAVE REGARDING THESE TEST RESULTS. RADIOLOGY REPORT FACILITY: [facility] UNIT/AGE/GENDER: J.ICU IN AGE:67 Y SEX:M PATIENT NAME/: VITALY CASILLAS LAYNE 1955 UNIT NUMBER: [id number] ACCESSION NUMBER: [id number] CTA Head CTA Neck Examination Date: 05/21/2022 [...] and Basilar Arteries: Codominant. No significant stenosis. door to door fundraising collector: Unremarkable. Superior Cerebellar and PICAs: Patent proximally. [...] M.D.> 05/21/202240 [phone] us Cinthia Snell ENGINEER ASSISTANT IMG CT ORDERABLES Final Re sult * CT Angiogram Head (05/21/2022 6:21 AM EDT) Anatomical Region Laterality Modality Head Computed Tomogra phy 05/21/2022 8:35 AM EDT Narrative 05/21/2022 8:41 AM EDT REVIEWING YOUR TEST RESULTS IN [facility] IS NOT A SUBSTITUTE FOR DISCUSSING THOSE RESULTS WITH YOUR HEALTH CARE PROVIDER. PLEASE CONTACT YOUR PROVIDER [facility] TO DISCUSS ANY QUESTIONS OR CONCERNS YOU MAY HAVE REGARDING THESE TEST RESULTS. RADIOLOGY REPORT FACILITY: [facility] UNIT/AGE/GENDER: J.ICU IN AGE:67 Y SEX:M PATIENT NAME/: VITALY CASILLAS LAYNE 1955 UNIT NUMBER: [id number] ACCESSION NUMBER: [id number] CTA Head CTA Neck Examination Date: 05/21/2022 [...] and Basilar Arteries: Codominant. No significant stenosis. door to door fundraising collector: Unremarkable. Superior Cerebellar and PICAs: Patent proximally. [...] - 05/21/2022 REVIEWING YOUR TEST RESULTS IN [facility] IS NOT A SUBSTITUTE FORDISCUSSING THOSE RESULTS WITH YOUR HEALTH CARE PROVIDER. PLEASE CONTACT YOUR PROVIDER [facility] TO DISCUSS ANY QUESTIONS ORCONCERNS YOU MAY HAVE REGARDING THESE TEST RESULTS. RADIOLOGY REPORT FACILITY: [facility] UNIT/AGE/GENDER: J.ICU IN AGE:67 Y SEX:M PATIENT NAME/: VITALY CASILLAS LAYNE 1955 UNIT NUMBER: [id number] ACCESSION NUMBER: [id number] CTA Head CTA Neck Examination Date: 05/21/2022 [...] and Basilar Arteries: Codominant. No significant stenosis. door to door fundraising collector: Unremarkable. Superior Cerebellar and PICAs: Patent proximally. [...] - 4.7 mg/dL 05/21/2022 5:21 AM EDT [facility] Plasma BLOOD SPECIMEN FROM PATIENT / Unknown 05/21/2022 4:32 AM EDT 05/21/2022 4:56 AM EDT us Enedina Chavis MD LAB BLOOD ORDERABLES Final Result [facility] ([id number]) [address] [place] [address] [facility] [address] [place] [address] * Holter Monitor Placement (05/20/2022 5:53 PM EDT) 05/20/2022 5:12 PM EDT Narrative [facility] - 05/22/2022 10:39 PM EDT REVIEWING YOUR TEST RESULTS IN [facility] IS NOT A SUBSTITUTE FOR DISCUSSING THOSE RESULTS WITH YOUR HEALTH CARE PROVIDER. PLEASE CONTACT YOUR PROVIDER VIA [employer] TO DISCUSS ANY QUESTIONS OR CONCERNS YOU MAY HAVE REGARDING THESE TEST RESULTS. CARDIOLOGY REPORT FACILITY: [facility] PATIENT NAME/: VITALY CASILLAS 1955 UNIT/AGE/GENDER: AGE: 67 YR GENDER: M UNIT NUMBER: [id number] ACCESSION NUMBER: [id number] DATE OF EXAM: 05/20/2022 17:12 EXAMINATION(S): HOLTER [...] - 05/22/2022 REVIEWING YOUR TEST RESULTS IN [facility] NOT A SUBSTITUTE FORDISCUSSING THOSE RESULTS WITH YOUR HEALTH CARE PROVIDER. PLEASE CONTACT YOUR PROVIDER VIA [employer] TO DISCUSS ANY QUESTIONS ORCONCERNS YOU MAY HAVE REGARDING THESE TEST RESULTS. CARDIOLOGY REPORT FACILITY: [facility] PATIENT NAME/: VITALY CASILLAS 1955 UNIT/AGE/GENDER: AGE: 67 YR GENDER: M UNIT NUMBER: [id number] ACCESSION NUMBER: [id number] DATE OF EXAM: 05/20/2022 17:12 EXAMINATION(S): HOLTER [...] CV CARDIAC SERVICES LEVI COHEN Final Result [facility] * EKG 12 lead (05/20/2022 5:02 PM EDT) 05/20/2022 5:02 PM EDT Narrative [facility] - 05/21/2022 8:39 AM EDT CARDIOLOGY REPORT FACILITY: [facility] PATIENT NAME/: VITALY CASILLAS 1955 UNIT/AGE/GENDER: AGE: 67 YR GENDER: M UNIT NUMBER: [id number] ACCESSION NUMBER: [id number] DATE OF EXAM: 05/20/2022 17:02 EXAMINATION(S): ECG 12-LEAD FINAL REPORT Procedure: ELECTROCARDIOGRAM RESULT Heart Rate 56 P-R Interval 140 ms QRS Interval 110 ms QT Interval 468 ms QTC Interval 452 ms P [place] 22 deg QRS [place] 21 deg T Wave [place] 7 deg DATE: 05/20/2022 17:02 SINUS BRADYCARDIA NONSPECIFIC INTRAVENTRICULAR CONDUCTION DELAY Summary: Abnormal ECG Electronically signed by Dominick Murphy 05/21/2022 08:39 Procedure Note Jeffrey Tan MD - 05/21/2022 CARDIOLOGY REPORT FACILITY: [facility] PATIENT NAME/: VITALY CASILLAS 1955 UNIT/AGE/GENDER: AGE: 67 YR GENDER: M UNIT NUMBER: [id number] ACCESSION NUMBER: [id number] DATE OF EXAM: 05/20/2022 17:02 EXAMINATION(S): ECG 12-LEAD FINAL REPORT Procedure: ELECTROCARDIOGRAM RESULT Heart Rate 56 P-R Interval 140 ms QRS Interval 110 ms QT Interval 468 ms QTC Interval 452 ms P [place] 22 deg QRS [place] 21 deg T Wave [place] 7 deg DATE: 05/20/2022 17:02 SINUS BRADYCARDIA NONSPECIFIC INTRAVENTRICULAR CONDUCTION DELAY Summary: Abnormal ECG Electronically signed by Dominick Murphy 05/21/2022 08:39 Julio Wharton MD ECG ORDERABLES Final Result [facility] * 20 min. EEG routine Normal Sleep (05/20/2022 2:58 PM EDT) Narrative [facility] - 05/20/2022 2:58 PM EDT Tyree Donovan MD 05/20/2022 3:04 PM ADULT ELECTROENCEPHALOGRAM REPORT FACILITY: [facility] AGE/GENDER: 67 yr/o male PATIENT NAME/: Vitaly Casillas 1955 PROCEDURE DATE: 05/20/2022 EXAM# : [id number] CLINICAL INFORMATION: AMS RECORDING CONDITIONS: This is [...] diagnosis of seizures. Tyree Donovan II, MD [facility] Lissette Richardshodaryl DO NEUROLOGY ORDERABLES Fin al Result [facility] * (ABNORMAL) .Urinalysis with microscopic, reflex culture (05/20/2022 6:34 AM EDT) Only the most recent of2 resultswithin the time period is included. Color-Urine Yellow 05/20/2022 7:02 AM [facility] Clarity-Urine Clear 05/20/2022 7:02 AM [facility] Specific [place] Urine 1.034(H) 1.005 - 1.030 (arb'U) 05/20/2022 7:02 AM [facility] Comment:Elevated specific gr avity may be seen when urine contains x ray contrast media, plasma expanders, and/or large amounts of glucose or protein. Correlate specific gravity findings to patient clinical history. pH-Urine 8.5 5.0 - 9.0 (pH) 05/20/2022 7:02 AM [facility] Protein-Urine 600(A) Negative mg/dL 05/20/2022 7:02 AM [facility] Glucose-Urine 50(A) Negative mg/dL 05/20/2022 7:02 AM [facility] Ketone-Urine Negative Negative mg/dL 05/20/2022 7:02 AM [facility] Bilirubin-Urine Negative Negative mg/dL 05/20/2022 7:02 AM [facility] Occult Blood-Urine 1+(A) Negative (arb'U) 05/20/2022 7:02 AM [facility] Nitrite-Urine Negative Negative (arb'U) 05/20/2022 7:02 AM [facility] Urobilinogen-Uri ne Normal Normal (EhrlichU)/ dL 05/20/2022 7:02 AM [facility] Leukocyte Esterase-Urine 25(A) Negative (arb'U) 05/20/2022 7:02 AM [facility] Source-Urine Urine De Los Santos Cath 05/20/2022 5:22 AM [facility] WBC-Urine 40(H) 0 - 3 (HPF) 05/20/2022 7:02 AM [facility] RBC-Urine 45(H) 0 - 2 (HPF) 05/20/2022 7:02 AM [facility] Squamous Epithelial-Urine <1 0 - 4 (HPF) 05/20/2022 7:02 AM [facility] Bacteria-Urine TRACE(A) None Seen (HPF) 05/20/2022 7:02 AM [facility] Mucus-Urine TRACE(A) None Seen (LPF) 05/20/2022 7:02 AM [facility] Transitional Epithelial-Urine <1 0 - 2 (HPF) 05/20/2022 7:02 AM [facility] Urine URINE SPECIMEN / Unknown 05/20/2022 6:34 AM EDT 05/20/2022 6:50 AM EDT us Luz Kumari MD URINE ORDERABLES Becca lynne Result [facility] ([id number]) [address] [place] [address] [facility] [address] [place] [address] * (ABNORMAL) Toxicology Screen, urine (05/20/2022 6:34 AM EDT) Amphetamines-Urine Scrn Negative Negative 05/20/2022 7:04 AM [facility] Comment: Screening cut off 500ng/mL. (note) Testing for medical purposes only. Positive results are not automatically confirmed. This assay has poor sensitivity for methylphenidate (eg Ritalin), a methylphenidate specific assay is needed to monitor compliance with these medications. Barbiturates-Urine Screen POSITIVE(A) Negative 05/20/2022 7:04 AM [facility] Comment: Screening cut off 200ng/mL. (note) Testing for medical purposes only. Positive results are not automatically confirmed. Benzodiazepines-Ur ine Screen POSITIVE(A) Negative 05/20/2022 7:04 AM [facility] Comment: Screening cut off 200ng/mL. (note) Testing for medical purposes only. Positive results are not automatically confirmed. Cannabinoids-Urine Screen Negative Negative 05/20/2022 7:04 AM [facility] Comment: Screening cut off 50ng/mL. (note) Testing for medical purposes only. Positive results are not automatically confirmed. Cocaine-Urine Screen Negative Negative 05/20/2022 7:04 AM [facility] Comment: Screening cut off 300ng/mL. (note) Testing for medical purposes only. Positive results are not automatically confirmed. Opiates-Urine Screen Negative Negative 05/20/2022 7:04 AM [facility] Comment: Screening cut off 300ng/mL. (note) Testing [...] MD URINE ORDERABLES Becca lynne Result [facility] ([id number]) [address] [place] [address] [facility] [address] [place] [address] * Culture,Urine (05/20/2022 6:34 AM EDT) Special Requests Urine (arb'U) 05/23/2022 1:54 PM EDT [facility] Culture Final no growth 05/21/2022 9:32 AM EDT [facility] Urine 05/20/2022 6:34 AM EDT 05/20/2022 6:50 AM EDT us Luz Kumari MD MICROBIOLOGY - GENERA L ORDERABLES Final Result [facility] [address] [facility] [address] [place] [address] [facility] [address] [facility] [address] [place] [address] * (ABNORMAL) Lactic Acid (05/20/2022 4:33 AM EDT) Lactic Acid 2.2(H) 0.7 - 2.0 mmol/L 05/20/2022 4:38 AM EDT [facility] RT Serum BLOOD SPECIMEN FROM PATIENT / Unknown 05/20/2022 4:33 AM EDT 05/20/2022 4:32 AM EDT us Luz Kumari MD LAB BLOOD ORDERABLES Final Result [facility] RT [address] [place] [address], [facility] [phone] [facility] RT [address] [place] [address] * .Partial Thromboplastin Time (05/20/2022 4:33 AM EDT) Only the most recent of3 resultswithin the time period is included. Partial Thromboplastin Time 25.3 25.1 - 36.5 s 05/20/2022 5:06 AM EDT [facility] Comment: (note) Anticoagulants may alter the [...] BLOOD ORDERABLES Final Result Performing Organization Address City/[facility]/ZIP Co de Phone Number [facility] ([id number]) [address] [place] [address] [address] * Troponin (05/20/2022 4:33 AM EDT) [facility] Troponin 0.012 0.000 - 0.028 ng/mL 05/20/2022 4:55 AM EDT [facility] Comment: (note) Levels >0.028 are greater than the 99th percentile and suggest possible need for clinical correlation and serial testing. Plasma BLOOD SPECIMEN FROM PATIENT / Unknown 05/20/2022 4:33 AM EDT 05/20/2022 4:33 AM EDT Luz Kumari MD LAB BLOOD ORDERABLES Final Result [facility] ([id number]) [address] [place] [address] [address] * (ABNORMAL) Urinalysis (05/20/2022 4:33 AM EDT) Only the most recent of2 resultswithin the time period is included. Color-Urine Light yellow 05/20/2022 5:03 AM [facility] Clarity-Urine Clear 05/20/2022 5:03 AM [facility] Specific [place] Urine 1.038(H) 1.005 - 1.030 (arb'U) 05/20/2022 5:03 AM [facility] Comment:Elevated specific gr avity may be seen when urine contains x ray contrast media, plasma expanders, and/or large amounts of glucose or protein. Correlate specific gravity findings to patient clinical history. pH-Urine 8.0 5.0 - 9.0 (pH) 05/20/2022 5:03 AM [facility] Protein-Urine >600(A) Negative mg/dL 05/20/2022 5:03 AM [facility] Glucose-Urine 50(A) Negative mg/dL 05/20/2022 5:03 AM [facility] Ketone-Urine Negative Negative mg/dL 05/20/2022 5:03 AM [facility] Bilirubin-Uri ne Negative Negative mg/dL 05/20/2022 5:03 AM [facility] Occult Blood-Urine 1+(A) Negative (arb'U) 05/20/2022 5:03 AM [facility] Nitrite-Urine Negative Negative (arb'U) 05/20/2022 5:03 AM [facility] Urobilinogen- Urine Normal Normal (EhrlichU)/ dL 05/20/2022 5:03 AM [facility] Leukocyte Esterase-Urin e Negative Negative (arb'U) 05/20/2022 5:03 AM [facility] Source-Urine Urine De Los Santos Cath 05/20/2022 3:45 AM [facility] Reflex Microscopic? Microscopic performed 05/20/2022 5:03 AM [facility] RBC-Urine 47(H) 0 - 2 (HPF) 05/20/2022 5:03 AM [facility] WBC-Urine 30(H) 0 - 3 (HPF) 05/20/2022 5:03 AM EDT [facility] Squamous Epithelial-Ur ine <1 0 - 4 (HPF) 05/20/2022 5:03 AM EDT [facility] Bacteria-Urin e TRACE(A) None Seen (HPF) 05/20/2022 5:03 AM EDT [facility] Urine URINE SPECIMEN / Unknown 05/20/2022 4:33 AM EDT 05/20/2022 4:55 AM EDT us Luz Kumari MD URINE ORDERABLES Becca lynne Result [facility] ([id number]) [address] [place] [address] [facility] [address] [place] [address] * Protime-INR (05/20/2022 4:33 AM EDT) Only the most recent of3 resultswithin the time period is included. Prothrombin Time 11.4 10.3 - 13.3 s 05/20/2022 5:06 AM EDT [facility] Comment: (note) Anticoagulants may alter the results of Laboratory Coagulation assays. New-generation anticoagulants such as direct Thrombin inhibitors (Dabigatran/Pradaxa, Argatroban, Bivalrudin) and direct/indirect factor Xa inhibitors (Rivaroxaban/Xarelto,Apixaban/Eliquis, Danaparoid/Orgaran, Fondaparinux/Arixtra) have been shown to affect the results of Laboratory Coagulation assays, creating falsely elevated or decreased values. Correlation with medication history is advised. INR 1.0 INR 05/20/2022 5:06 AM EDT [facility] Comment: INR Therapeutic Ranges: Low Intensity Range: 2.0-3.0 High Intensity Range: 3.0-4.5 Plasma BLOOD SPECIMEN FROM PATIENT / Unknown 05/20/2022 4:33 AM EDT 05/20/2022 4:33 AM EDT us Luz Kumari MD LAB BLOOD ORDERABLES Final Result [facility] ([id number]) [address] [place] [address] [id number] [place] [address] * (ABNORMAL) CK (05/20/2022 4:33 AM EDT) CK 28(L) 30 - 200 U/L 05/20/2022 4:58 AM EDT [facility] Plasma BLOOD SPECIMEN FROM PATIENT / Unknown 05/20/2022 4:33 AM EDT 05/20/2022 4:33 AM EDT Luz Kumari MD LAB BLOOD ORDERABLES Final Result Performing Organization Address City/[facility]/ZIP Co de Phone Number [facility] ([id number]) [address] [place] [address] [facility] [address] [place] [address] * XR Chest 1 Vw (05/20/2022 4:03 AM EDT) Only the most recent of3 resultswithin the time period is included. Anatomical Region Laterality Modality Chest [facility] Radiographic Imaging 05/20/2022 7:17 AM EDT Narrative 05/20/2022 7:19 AM EDT REVIEWING YOUR TEST RESULTS IN [facility] IS NOT A SUBSTITUTE FOR DISCUSSING THOSE RESULTS WITH YOUR HEALTH CARE PROVIDER. PLEASE CONTACT YOUR PROVIDER [facility] TO DISCUSS ANY QUESTIONS OR CONCERNS YOU MAY HAVE REGARDING THESE TEST RESULTS. RADIOLOGY REPORT FACILITY: [facility] UNIT/AGE/GENDER: J.ICU IN AGE:67 Y SEX:M PATIENT NAME/: VITALY CASILLAS 1955 UNIT NUMBER: [id number] ACCESSION NUMBER: [id number] PORTABLE AP CHEST, SINGLE VIEW DATE: 05/20/2022 [...] - 05/20/2022 [facility] YOUR TEST RESULTS [facility] NOT A [facility] FORDISCUSSING THOSE RESULTS WITH YOUR HEALTH CARE PROVIDER. PLEASE CONTACT YOUR PROVIDER [facility]IA [facility] TO DISCUSS ANY QUESTIONS ORCONCERNS YOU MAY HAVE REGARDING THESE TEST RESULTS. RADIOLOGY REPORT FACILITY: [facility] UNIT/AGE/GENDER: J.ICU IN AGE:67 Y SEX:M PATIENT NAME/: VITALY CASILLAS 1955 UNIT NUMBER: [id number] ACCESSION NUMBER: [id number] PORTABLE AP CHEST, SINGLE VIEW DATE: 05/20/2022 [...] Test POSITIVE (arb'U) 05/20/2022 3:57 AM EDT [facility] RT Temperature-AB G 37.0 37.0 Clara 05/20/2022 3:57 AM EDT [facility] RT pH-ABG 7.51(H) 7.35 - 7.45 PH 05/20/2022 3:57 AM EDT [facility] RT PCO2-ABG 38 35 - 48 mm(Hg) 05/20/2022 3:57 AM EDT [facility] RT PO2-ABG 128(H) 83 - 108 mm(Hg) 05/20/2022 3:57 AM EDT [facility] RT HCO3-ABG 30 22 - 30 mmol/L 05/20/2022 3:57 AM EDT [facility] RT DY75-STI 31(H) 19 - 24 mmol/L 05/20/2022 3:57 AM EDT [facility] RT Base Excess-ABG 6.7(H) 0.0 - 3.0 mmol/L 05/20/2022 3:57 AM EDT [facility] RT O2 Sat-ABG 100.0(H) 95.0 - 98.0 % 05/20/2022 3:57 AM EDT [facility] RT Whole Blood 05/20/2022 3:56 AM EDT 05/20/2022 3:57 AM EDT us Luz Kumari MD LAB BLOOD ORDERABLES Final Result [facility] RT [address] [place] [address], [facility] [phone] [facility] RT [address] [place] [address] * Culture,Blood (05/20/2022 3:53 AM EDT) Only the most recent of2 resultswithin the time period is included. Culture No Growth 05/26/2022 5:54 AM EDT [facility] Blood ARTERIAL LINE SUBMITTED SPECIMEN / Unknown 05/20/2022 3:53 AM EDT 05/20/2022 3:58 AM EDT Comment:Central Line us Luz Kumari MD MICROBIOLOGY - GENERA L ORDERABLES Final Result [facility] [address] [facility] [address] [place] [address] [facility] [address] [place] [address] * (ABNORMAL) Comprehensive Metabolic Panel (CMP) (05/20/2022 3:47 AM EDT) Only the most recent of2 resultswithin the time period is included. Sodium 140 136 - 145 mmol/L 05/20/2022 4:18 AM [facility] Comment: (note) Excess protein and/or lipids can falsely decrease sodium levels (pseudo hyponatremia). Potassium 4.0 3.5 - 5.1 mmol/L 05/20/2022 4:18 AM [facility] Chloride 104 98 - 107 mmol/L 05/20/2022 4:18 AM [facility] Comment: (note) Falsely elevated chloride levels can be seen in patients taking medications which contain bromide. Carbon Dioxide 28 22 - 29 mmol/L 05/20/2022 4:18 AM [facility] Anion Gap 8 5 - 13 (arb'U) 05/20/2022 4:18 AM [facility] Comment: (note) Calculation- Na - (Cl + CO2) Glucose 118 71 - 139 mg/dL 05/20/2022 4:18 AM [facility] Comment: (note) Reference range based on inpatient hypo/hyperglycemic treatment levels. A random glucose =/>200 is concerning for poor control. Blood Urea Nitrogen (BUN) 23 8 - 26 mg/dL 05/20/2022 4:18 AM [facility] Creatinine-Blood 0.45(L) 0.73 - 1.18 mg/dL 05/20/2022 4:18 AM [facility] BUN/Creatinine Ratio 51.1 RATIO 05/20/2022 4:18 AM T [facility] Estimated GFR >60 >60 /1.73 m2 05/20/2022 4:18 AM T [facility] Comment: (note) Results do not take into account body mass. Valid for patients 18 to 70 years of age. Estimated GFR if -Zambian >60 >60 /1.73 m2 05/20/2022 4:18 AM T [facility] Comment: (note) Results do not take into account body mass. Valid for patients 18 to 70 years of age. Total Protein 6.2 6.2 - 8.0 g/dL 05/20/2022 4:18 AM T [facility] Albumin 3.3 3.2 - 4.6 g/dL 05/20/2022 4:18 AM [facility] Globulin 2.9 1.5 - 4.5 g/dL 05/20/2022 4:18 AM [facility] Albumin/Globulin Ratio 1.1 1.1 - 2.5 RATIO 05/20/2022 4:18 AM [facility] Calcium 9.0 8.4 - 10.2 mg/dL 05/20/2022 4:18 AM [facility] Total Bilirubin 0.3 0.2 - 1.2 mg/dL 05/20/2022 4:18 AM [facility] AST/SGOT 10 5 - 34 U/L 05/20/2022 4:18 AM [facility] ALT/SGPT 20 0 - 55 U/L 05/20/2022 4:18 AM [facility] Alkaline Phosphatase 77 40 - 150 U/L 05/20/2022 4:18 AM [facility] Plasma BLOOD SPECIMEN FROM PATIENT / Unknown 05/20/2022 3:47 AM EDT 05/20/2022 3:53 AM EDT us Luz Kumari MD LAB BLOOD ORDERABLES Final Result [facility] ([id number]) [address] [place] [address] [facility] [address] [place] [address] * Potassium (04/04/2022 12:16 PM EDT) Potassium 3.9 3.5 - 5.1 mmol/L 04/04/2022 12:35 PM EDT [facility] Plasma specimen (specimen) BLOOD SPECIMEN FROM PATIENT / Unknown 04/04/2022 12:16 PM EDT 04/04/2022 12:21 PM EDT us Abiodun Duran MD LAB BLOOD ORDERABLES Final R esult [facility] ([id number]) [address] [place] [address] [facility] [address] [place] [address] * MRI Brain Wo & W Con (04/03/2022 3:37 PM EDT) Anatomical Region Laterality Modality Head [facility] Magnetic Res onance Imaging 04/03/2022 4:11 PM EDT Narrative 04/03/2022 4:25 PM EDT REVIEWING YOUR TEST RESULTS IN [facility] IS NOT A SUBSTITUTE FOR DISCUSSING THOSE RESULTS WITH YOUR HEALTH CARE PROVIDER. PLEASE CONTACT YOUR PROVIDER VIA [facility] TO DISCUSS ANY QUESTIONS OR CONCERNS YOU MAY HAVE REGARDING THESE TEST RESULTS. RADIOLOGY REPORT FACILITY: [facility] UNIT/AGE/GENDER: J.ICU IN AGE:67 Y SEX:M PATIENT NAME/: VITALY CASILLAS 1955 UNIT NUMBER: [id number] ACCESSION NUMBER: [id number] MRI OF THE BRAIN WITH AND WITHOUT [...] vessel white matter changes. Dictated by: Ran Hagrrove M.D. Images and Report reviewed and interpreted by: Ran Hargrove M.D. <PS><Electronically signed by: Ran Hargrove M.D.> 04/03/2022 1624 1611 1611 Procedure Note Ran Hargrove MD - 04/03/2022 REVIEWING YOUR TEST RESULTS IN [facility] IS NOT A SUBSTITUTE FORDISCUSSING THOSE RESULTS WITH YOUR HEALTH CARE PROVIDER. PLEASE CONTACT YOUR PROVIDER VIA [facility] TO DISCUSS ANY QUESTIONS ORCONCERNS YOU MAY HAVE REGARDING THESE TEST RESULTS. RADIOLOGY REPORT FACILITY: [facility] UNIT/AGE/GENDER: Tracy.ICU IN AGE:67 Y SEX:M PATIENT NAME/: VITALY CASILLAS 1955 UNIT NUMBER: [id number] ACCESSION NUMBER: [id number] MRI OF THE BRAIN WITH AND WITHOUT [...] demonstrate mild symmetric volume loss. No abnormal [id number] identified within the suggest mesial temporal sclerosis. [...] 1624 1611 1611 us Lissette Flood DO [facility] MRI ORDERABLES Final Result * Procalcitonin (04/02/2022 10:08 AM EDT) Procalcitonin 0.13 0.1 - 0.5 ng/mL 04/02/2022 10:56 AM EDT [facility] Plasma BLOOD SPECIMEN FROM PATIENT / Unknown 04/02/2022 10:08 AM EDT 04/02/2022 10:13 AM EDT David Garcia MD LAB BLOOD ORDERABLES Final Resu lt [facility] ([id number]) [address] [place] [address] [facility] [address] [place] [address] * (ABNORMAL) Culture, Sputum/Gram Stain (04/02/2022 9:57 AM EDT) Gram Stain Few Squamous Epithelial Cells 04/02/2022 10:45 AM EDT [facility] Gram Stain Many WBC's 04/02/2022 10:45 AM EDT [facility] Gram Stain Many Gram Positive Cocci in Pairs and Chains and Clusters 04/02/2022 10:45 AM EDT [facility] Gram Stain Few Gram Negative Bacillus 04/02/2022 10:45 AM EDT [facility] Gram Stain Many Gram Negative Diplococci 04/02/2022 10:45 AM EDT [facility] Culture Methicillin resistant Staphylococcus aureus Heavy [...] ORDERABL ES Final Result [facility] [address] [place] [address] [facility] [address] [place] [address] [facility] [address] [facility] [address] [place] [address] * (ABNORMAL) Hemoglobin A1C (04/02/2022 4:22 AM [...] ORDERABLES Final R esult [facility] [address] [facility] [address] [place] [address] [facility] [address] [facility] [address] [place] [address] * CT Head Wo Contrast (04/01/2022 6:38 PM EDT) Anatomical Region Laterality Modality Head Computed Tomogra phy 04/01/2022 6:51 PM EDT Narrative 04/01/2022 6:53 PM EDT REVIEWING YOUR TEST RESULTS IN [facility] FOR DISCUSSING THOSE RESULTS WITH YOUR HEALTH CARE PROVIDER. PLEASE CONTACT YOUR PROVIDER VIA [employer] TO DISCUSS ANY QUESTIONS OR CONCERNS YOU MAY HAVE REGARDING THESE TEST RESULTS. RADIOLOGY REPORT FACILITY: [facility] UNIT/AGE/GENDER: J.ICU IN AGE:67 Y SEX:M PATIENT NAME/: VITALY CASLILAS 1955 UNIT NUMBER: [id number] ACCESSION NUMBER: [id number] DATE: 04/01/2022 HISTORY: Seizure, new-onset, no history [...] - 04/01/2022 REVIEWING YOUR TEST RESULTS [facility] A [facility]STITUTE FORDISCUSSING THOSE RESULTS WITH YOUR HEALTH CARE PROVIDER. PLEASE CONTACT YOUR PROVIDER VIA [employer] TO DISCUSS ANY QUESTIONS ORCONCERNS YOU MAY HAVE REGARDING THESE TEST RESULTS. RADIOLOGY REPORT FACILITY: [facility] UNIT/AGE/GENDER: J.ICU IN AGE:67 Y SEX:M PATIENT NAME/: VITALY CASILLAS 1955 UNIT NUMBER: [id number] ACCESSION NUMBER: [id number] DATE: 04/01/2022 HISTORY: Seizure, new-onset, no history [...] by: Magan Alcaraz M.D.> 04/01/20221851 1850 1850 Shivamjuayn HeOrlando [facility] DO [facility] CT ORDERABLES Final Result * XR Abdomen Ap Only (04/01/2022 4:45 PM EDT) Anatomical Region Laterality Modality Abdomen [facility] Radiographic Imaging 04/01/2022 5:19 PM EDT Narrative 04/01/2022 5:23 PM EDT REVIEWING YOUR TEST RESULTS IN [facility] IS NOT A SUBSTITUTE FOR DISCUSSING THOSE RESULTS WITH YOUR HEALTH CARE PROVIDER. PLEASE CONTACT YOUR PROVIDER VIA [facility] TO DISCUSS ANY QUESTIONS OR CONCERNS YOU MAY HAVE REGARDING THESE TEST RESULTS. RADIOLOGY REPORT FACILITY: [facility] UNIT/AGE/GENDER: Tracy.ICU IN AGE:67 Y SEX:M PATIENT NAME/: VITALY CASILLAS 1955 UNIT NUMBER: [id number] ACCESSION NUMBER: [id number] EXAM: XR CHEST 1 VW, XR ABDOMEN [...] - 04/01/2022 REVIEWING YOUR TEST RESULTS IN [facility] IS NOT A SUBSTITUTE FORDISCUSSING THOSE RESULTS WITH YOUR HEALTH CARE PROVIDER. PLEASE CONTACT YOUR PROVIDER VIA [employer] TO DISCUSS ANY QUESTIONS ORCONCERNS YOU MAY HAVE REGARDING THESE TEST RESULTS. RADIOLOGY REPORT FACILITY: [facility] UNIT/AGE/GENDER: Tracy.ICU IN AGE:67 Y SEX:M PATIENT NAME/: VITALY CASILLAS 1955 UNIT NUMBER: [id number] ACCESSION NUMBER: [id number] EXAM: XR CHEST 1 VW, XR ABDOMEN [...] Acidosis 05/20/2022 Other dysphagia 05/20/2022 Care Teams Senior Quality Engineer Relationship Specialty Start Date End Date John Paul Orellana MD [address] [place] [address] PCP - General Internal Medicine 04/03/22
--- OUTSIDE RECORDS SUMMARY | 2025-05-21 10:12 | XMS_ITS | Encounter Summary ---
Author Organization [facility] Address [address] [place] [address] Care Team Providers Care Experience Design Director Name Role Phone Gustavo Leggett MD Primary Care Provider [phone] Reason for Visit * Reason Onset Date Comments HOME HEALTH ORDER 11/13/2020 Encounter Details Date Type Department Care Team (Late st Contact Info) Description 11/13/2020 Telephone [facility] NEUROSURGERY [address] [facility] [address] [place] [address] Tyree Tan MD HOME HEALTH [...] 11/14/2020 12:58 PM EST Called Sina at [phone] and there was no answer,simply said not [...] PT Relationship: SELF Best call back number: [phone] What orders are you requesting (i.e. lab [...] documented as of this encounter Care Teams Experience Design Director Relationship Specialty Start Date End Date Gustavo Leggett MD [address] [facility] [address] [place] [address] PCP - General Adolescent Medicine 07/14/23 documented as of this encounter
--- OUTSIDE RECORDS SUMMARY | 2025-05-21 10:12 | XMS_ITS | Encounter Summary ---
Author Organization Healthcare Address [address] [place] [address] Care Team Providers Care Organizational Development Specialist Name Role Phone John Paul Orellana MD Primary Care Provider [phone] Encounter Details Date Type Department Care Team (Late st Contact Info) Description 04/21/2022 Lab Requisition [facility] [address] [place] [address] Delvis Dominguez MD [address] [facility] [address] [facility] [address] [place] [address] Encounter for general adult medical [...] drink first t clarita in the morning (EYE-ELEMENTARY SPANISH TEACHER) to steady your nerves or to get [...] GENERAL ORDERABLES Final Result [facility] [address] [place] [address] documented in this encounter Visit Diagnoses Diagnosis Encounter for general adult medical examination without abnormal findings documented in this encounter Additional Health Concerns Infection Onset Date Last Indicated Resolved Time 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
[2025-05-21] MEDS: DEFINITY US ECHO CONTRAST 2ML INJ 2 MG IV (11:11)
== END 2025-05-21 23:59 | disposition home or self-care (01) ==
LOC: RT 10:08
PROVIDERS: PCP Internal Medicine Adolescent Medicine; Visit Provider Nurse Practitioner Family
DX: I49.1 Atrial premature depolarization (principal); I50.9 Heart failure, unspecified; R93.1 Abnormal findings on diagnostic imaging of heart and coronary circulation; R94.31 Abnormal electrocardiogram [ECG] [EKG]
CPT/HCPCS: 93225; 93226; 93306; Q9957

== ENCOUNTER 2025-06-18 11:30 | Outpatient (CLI) | payer MEDICARE, SELFPAY ==
--- OUTSIDE RECORDS SUMMARY | 2025-06-01 20:00 | XMS_ITS | Clinical Summary ---
Author Organization Unknown Care Team Providers Care [employer] Name Role Phone TYSON MURILLO, YUMIKO Unavailable Unavailable SHERRIE OT, YUMI Unavailable Unavailable ANA RN, KASHIF Unavailable Unavailable MARIAM PT, LE Unavailable Unavailable Payers Payer Name Policy Type Policy Number Effective Date Expira tion Date WE[employer] MCR ADV PDGM Problems Condition Name Condition Details Condition Category Status Onset Date Resolution Date Last Treatment Date Treating Clinician Comments PRESSURE ULCER OF RIGHT BUTTOCK, STAGE 2 Active 05-09 00:00: 00 PRESSURE ULCER OF LEFT BUTTOCK, STAGE 2 Active 05-09 00:00: 00 ENCOUNTER FOR ORTHOPEDIC AFTERCARE FOLLOWING SURGICAL AMP Active 05-22 00:00: 00 ACQUIRED ABSENCE OF LEFT FOOT Active 05-22 00:00: 00 URINARY TRACT INFECTION, SITE NOT SPECIFIED Active 05-09 00:00: 00 PSEUDOMONAS (MALLEI) CAUSING DISEASES CLASSD ELSWHR Active 05-09 00:00: 00 TYPE 2 DIABETES W DIABETIC PERIPHERAL ANGIOPATH W/O GANGRENE Active 09-25 00:00: 00 UNSPECIFIED ATRIAL FLUTTER Active 09-25 00:00: 00 ACQUIRED ABSENCE OF RIGHT LEG BELOW KNEE Active 09-25 00:00: 00 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 Active 09-25 00:00: 00 GASTROPARESI S Active 09-25 00:00: 00 HYPERTENSIVE HEART DISEASE WITH HEART FAILURE Active 09-25 00:00: 00 HEART FAILURE, UNSPECIFIED Active 09-25 00:00: 00 LYMPHEDEMA, NOT ELSEWHERE CLASSIFIED Active 09-25 00:00: 00 ATHSCL HEART DISEASE OF [place] CORONARY ARTERY W/O ANG PCTRS Active 09-25 00:00: 00 SPINAL STENOSIS, LUMBAR REGION WITHOUT NEUROGENIC LEA Active 09-25 00:00: 00 SPINAL STENOSIS, CERVICAL REGION Active 09-25 00:00: 00 MIXED HYPERLIPIDEM IA Active 09-25 00:00: 00 MIGRAINE, UNSP, NOT INTRACTABLE, WITHOUT STATUS MIGRAINOSUS Active 09-25 00:00: 00 OLD MYOCARDIAL INFARCTION Active 09-25 00:00: 00 BENIGN PROSTATIC HYPERPLASIA WITH LOWER URINARY TRACT SYMP Active 09-25 00:00: 00 OTHER RETENTION OF URINE Active 09-25 00:00: 00 PERSONAL HISTORY OF NICOTINE DEPENDENCE Active 09-25 00:00: 00 CUSTODIAL (CURRENT) USE OF ASPIRIN Active 05-22 00:00: 00 CUSTODIAL (CURRENT) USE OF 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 ICS/ANTIPLAT ELETS Active 05-22 00:00: 00 Allergies, Adverse Reactions, Alerts Allergy [...] 81 mg chewable tablet 09-25 00:00: 00 05-29 23:59 :00 No [id number] HEART DISEASE 1 tablet DAILY 1 tablet DAILY (route: oral) Med Classific ation: Hematolog ical Agents baclofen 10 mg tablet 09-25 00:00: 00 Yes [id number] MUSCLE SPASMS 1 tablet 2 TIMES DAILY 1 tablet 2 TIMES DAILY (route: oral) Med Classific ation: Locomotor System Basaglar KwikPen U-100 Insulin 100 unit/mL (3 mL) subcutaneou s 09-25 00:00: 00 Yes [id number] DIABETIC 42 unit BEDTIME 42 unit BEDTIME (route: [facility]) Med Classific ation: Endocrine Cherelle Back and Body 500 mg-32.5 mg tablet 09-25 00:00: 00 Yes [id number] PAIN 1 tablet NEEDED 1 tablet NEEDED (route: oral) Med Classific ation: Analgesic , Anti-infl ammatory or Antipyret ic carvedilol 3.125 mg tablet 09-25 00:00: 00 Yes [id number] HEART RATE 1 tablet 2 TIMES DAILY 1 tablet 2 TIMES DAILY (route: oral) Med Classific ation: Cardiovas cular Therapy Agents clopidogrel 75 mg tablet 09-25 00:00: 00 Yes [id number] BLOOD THINNER 1 tablet DAILY 1 tablet DAILY (route: oral) Med Classific ation: Hematolog ical Agents folic acid 1 mg tablet 09-25 00:00: 00 Yes [id number] SUPPLEMENT 1 tablet DAILY 1 tablet DAILY (route: oral) Med Classific ation: Electroly te Balance-N utritiona l Products furosemide 40 mg tablet 09-25 00:00: 00 Yes [id number] FLUID 1 tablet DAILY 1 tablet DAILY (route: oral) Med Classific ation: Cardiovas cular Therapy Agents gabapentin 100 mg capsule 09-25 00:00: 00 Yes [id number] NERVE PAIN 2 capsule 3 TIMES DAILY 2 capsule 3 TIMES DAILY (route: oral) Med Classific ation: Central Nervous System Agents lamotrigine 100 mg tablet 09-25 00:00: 00 Yes [id number] SEIZURES 1 tablet 2 TIMES DAILY 1 tablet 2 TIMES DAILY (route: oral) Med Classific ation: Central Nervous System Agents lamotrigine 150 mg tablet 09-25 00:00: 00 Yes [id number] SEIZURES 1 tablet BEDTIME 1 tablet BEDTIME (route: oral) Med Classific ation: Central Nervous System Agents levofloxaci n 750 mg tablet 09-25 00:00: 00 11-10 23:59 :00 No [id number] INFECTION 1 tablet DAILY 1 tablet DAILY (route: oral) Med Classific ation: Anti-Infe ctive Agents multivitami n tablet - 00:00: 00 Yes [id number] SUPPLEMENT 1 tablet DAILY 1 tablet DAILY (route: oral) Med Classific ation: Electroly te Balance-N utritiona l Products ondansetron 4 mg disintegrat ing tablet 09-25 00:00: 00 Yes [id number] NAUSEA 1 tablet NEEDED 1 tablet NEEDED (route: oral) Med Classific ation: Gastroint estinal Therapy Agents Pacerone 400 mg tablet 09-25 00:00: 00 Yes [id number] HEART RATE 1 tablet 2 TIMES DAILY 1 tablet 2 TIMES DAILY (route: oral) Med Classific ation: Cardiovas cular Therapy Agents pantoprazol e 40 mg tablet,jossie yed release 09-25 00:00: 00 Yes [id number] ACID REFLUX 1 tablet DAILY 1 tablet DAILY (route: oral) Med Classific ation: Gastroint estinal Therapy Agents amoxicillin 875 mg-potassiu m clavulanate 125 mg tablet 01-31 00:00: 00 02-07 23:59 :00 No [id number] UTI 1 tablet EVERY AM 1 tablet EVERY AM (route: oral) Med Classific ation: Anti-Infe ctive Agents levofloxaci n 500 mg tablet 14 00:00: 00 03-10 23:59 :00 No [id number] DYSURIA 1 tablet DAILY 1 tablet DAILY (route: oral) Med Classific ation: Anti-Infe ctive Agents doxycycline hyclate 100 mg tablet 03-24 00:00: 00 03-31 23:59 :00 No [id number] DYSURIA 1 tablet 2 TIMES DAILY 1 tablet 2 TIMES DAILY (route: oral) Med Classific ation: Anti-Infe ctive Agents ertapenem 1 gram solution for injection 03-31 00:00: 00 04-03 23:59 :00 No [id number] UTI 1 g DAILY 1 g DAILY (route: injection) Med Classific ation: Anti-Infe ctive Agents lidocaine (PF) 10 mg/mL (1 %) injection solution 19 00:00: 00 04-03 23:59 :00 No [id number] DILUTING FOR ANTIBIOTIC Per instruc tions DAILY Per instructio ns DAILY (route: injection) Med Classific ation: Anestheti cs cefdinir 300 mg capsule 04-19 00:00: 00 04-29 23:59 :00 No [id number] UTI SYMPTOMS 1 capsule 2 TIMES DAILY 1 capsule 2 TIMES DAILY (route: oral) Med Classific ation: Anti-Infe ctive Agents heparin lock flush (porcine) 10 unit/mL intravenous solution 05-07 00:00: 00 05-17 23:59 :00 No [id number] BLOOD THINNER Per instruc tions DAILY Per instructio ns DAILY (route: intravenou s) Med Classific ation: Hematolog ical Agents sodium chloride 0.9 % (flush) injection syringe 05-07 00:00: 00 05-13 23:59 :00 No [id number] FLUSH Per instruc tions DAILY Per instructio ns DAILY (route: injection) Med Classific ation: Electroly te Balance-N utritiona l Products tobramycin 10 mg/mL intravenous solution 05-07 00:00: 00 05-13 23:59 :00 No [id number] ANTIBIOTIC 480 mg DAILY 480 mg DAILY (route: intravenou s) Med Classific ation: Anti-Infe ctive Agents Heparin Lock Flush (Porcine) (PF) 10 unit/mL intravenous syringe 05-08 00:00: 00 05-15 23:59 :00 No [id number] IV ADMINISTRAT ION 5 mL DAILY 5 mL DAILY (route: intravenou s) Med Classific ation: Hematolog ical Agents Normal Saline Flush 0.9 % injection syringe 05-08 00:00: 00 05-15 23:59 :00 No [id number] IV ADMINISTRAT ION Per instruc tions DAILY Per instructio ns DAILY (route: injection) Med Classific ation: Electroly te Balance-N utritiona l Products tobramycin 40 mg/mL injection solution 05-08 00:00: 00 05-15 23:59 :00 No [id number] UTI Per instruc tions DAILY Per instructio ns DAILY (route: injection) Med Classific ation: Anti-Infe ctive Agents calcium 250 mg (phosphate) -vit D3 12.5 mcg (500 unit) chewable tablet 05-17 00:00: 00 Yes [id number] DEFICI7 1 tablet DAILY 1 tablet DAILY (route: oral) Med Classific ation: Electroly te Balance-N utritiona l Products Eliquis 5 mg tablet 05-25 00:00: 00 Yes [id number] HEART 1 tablet 2 TIMES DAILY 1 tablet 2 TIMES DAILY (route: oral) Med Classific ation: Hematolog ical Agents methenamine hippurate 1 gram tablet 05-17 00:00: 00 Yes [id number] UROLOGY 1 tablet 2 TIMES DAILY 1 tablet 2 TIMES DAILY (route: oral) Med Classific ation: Genitouri nary Therapy sacubitril 24 mg-valsarta n 26 mg tablet 05-25 00:00: 00 Yes [id number] HEART FAILURE 1 tablet 2 TIMES DAILY 1 tablet 2 TIMES DAILY (route: oral) Med Classific ation: Cardiovas cular Therapy Agents Vitamin C 500 mg tablet 05-14 00:00: 00 Yes [id number] SUPPLEMENT 1 tablet DAILY 1 tablet DAILY (route: oral) Med Classific ation: Electroly te Balance-N utritiona l Products Vital Signs Vital Name Observation Time Observation Value Commen ts Temperature 2025-06-01 13:45:00.000 96.3 [degF] Temperature 2025-05-30 13:18:00.000 97.4 [degF] Temperature 2025-05-29 13:51:00.000 97.9 [degF] Temperature 2025-05-29 13:14:00.000 96.7 [degF] Temperature 2025-05-25 09:37:00.000 97.7 [degF] Pulse 2025-06-01 13:45:00.000 72 /min Pulse 2025-05-30 13:18:00.000 77 /min Pulse 2025-05-29 13:51:00.000 86 /min Pulse 2025-05-29 13:14:00.000 72 /min Pulse 2025-05-25 09:37:00.000 54 /min O2 Saturation (%) 2025-06-01 13:45:00.000 96 % O2 Saturation (%) 2025-05-30 13:18:00.000 98 % O2 Saturation (%) 2025-05-29 13:51:00.000 97 % O2 Saturation (%) 2025-05-29 13:14:00.000 96 % Respirations 2025-06-01 13:45:00.000 18 /min Respirations 2025-05-30 13:18:00.000 18 /min Respirations 2025-05-29 13:51:00.000 18 /min Respirations 2025-05-29 13:14:00.000 18 /min Respirations 2025-05-25 09:37:00.000 16 /min Systolic Blood Pressure 2025-06-01 13:45:00.000 132 mm [Hg] Systolic Blood Pressure 2025-05-30 13:18:00.000 118 mm [Hg] Systolic Blood Pressure 2025-05-29 13:51:00.000 136 mm [Hg] Systolic Blood Pressure 2025-05-29 13:14:00.000 132 mm [Hg] Systolic Blood Pressure 2025-05-25 09:37:00.000 138 mm [Hg] Diastolic Blood Pressure 2025-06-01 13:45:00.000 72 mm [Hg] Diastolic Blood Pressure 2025-05-30 13:18:00.000 75 mm [Hg] Diastolic Blood Pressure 2025-05-29 13:51:00.000 78 mm [Hg] Diastolic Blood Pressure 2025-05-29 13:14:00.000 62 mm [Hg] Diastolic Blood Pressure 2025-05-25 09:37:00.000 74 mm [Hg] Plan of Treatment Planned Activity Planned Date Details Comments Future Scheduled Test SKILLED NU RSE TO PROVIDE SKILLED TEACHING TO PATIENT/CAREGIVER OF HYPERTENSION TO INCLUDE MEDICATION MANAGEMENT, SELF-ASSESSMENT, LOW SODIUM DIET, AND TRACKING OF BLOOD PRESSURE RESULTS. [code = SKILLED NURSE TO PROVIDE SKILLED TEACHING TO PATIENT/CAREGIVER OF HYPERTENSION TO INCLUDE MEDICATION MANAGEMENT, SELF-ASSESSMENT, LOW SODIUM DIET, AND TRACKING OF BLOOD PRESSURE RESULTS.] Future Scheduled Test SKILLED NU RSE TO [...] NU RSE TO PERFORM/TEACH WOUND CARE TO LLE ICLEANSE WITHWOUND WASH APPLY CALCIUM ALGINATE TO WOUND BED, WRAP WITH UNNA BOOT DRESSING COVER WITH [id number] , SECURE WITH KERLEX AND COBAN. TO BE CHANGED 2XWEEK. [code = SKILLED NURSE TO PERFORM/TEACH WOUND CARE TO LLE ICLEANSE WITHWOUND WASH APPLY CALCIUM ALGINATE TO WOUND BED, WRAP WITH UNNA BOOT DRESSING COVER WITH [id number] , SECURE WITH KERLEX AND COBAN. TO BE CHANGED 2XWEEK.] Future Scheduled Test SKILLED NU RSE PRN VISIT ORDER: 1W5 2 PRN VISITS AND 1 REMOTE MAY BE PERFORMED DURING THIS CERTIFICATION PERIOD FOR THE FOLLOWING REASON(S): SKILLED NURSE TO EVALUATE AND DEVELOP PLAN [...] [code = SKILLED NURSE PRN VISIT ORDER: 1W5 2 PRN VISITS AND 1 REMOTE MAY BE PERFORMED DURING THIS CERTIFICATION PERIOD FOR THE FOLLOWING REASON(S): SKILLED NURSE TO EVALUATE AND DEVELOP PLAN [...] 911 RELATED TO THE DIAGNOSIS OF HEART DISEASE [code = SKILLED NURSE TO OBSERVE AND ASSESS CARDIOVASCULAR SYSTEM TO IDENTIFY CHANGES AND INTERVENE TO MINIMIZE COMPLICATIONS AND PROMOTE SELF CARE MANAGEMENT. SKILLED NURSE TO PROVIDE SKILLED TEACHING RELATED TO PATHOPHYSIOLOGY, DISEASE MANAGEMENT, SAFE MEDICATION ADMINISTRATION, WEIGHT/EDEMA MANAGEMENT, PERMITTED ACTIVITIES, S/SX OF EXACERBATION, AND S/SX TO NOTIFY AGENCY, PHYSICIAN OR 911 RELATED TO THE DIAGNOSIS OF HEART DISEASE] Future Scheduled Test SKILLED NU RSE TO OBSERVE AND ASSESS DIABETES MANAGEMENT SKILLED NURSE TO PROVIDE SKILLED TEACHING RELATED TO ENDOCRINE SYSTEM INCLUDING PATHOPHYSIOLOGY, NUTRITION, MEDICATION REGIMEN, AND PERMITTED ACTIVITIES. [code = SKILLED NURSE TO OBSERVE AND ASSESS DIABETES MANAGEMENT SKILLED NURSE TO PROVIDE SKILLED TEACHING RELATED TO ENDOCRINE SYSTEM INCLUDING PATHOPHYSIOLOGY, NUTRITION, MEDICATION REGIMEN, AND PERMITTED ACTIVITIES.] Future Scheduled Test PATIENT/CA REGIVER WILL BE KNOWLEDGEABLE OF DISCHARGE PLANS AND WILL DEMONSTRATE/PROVIDE EDUCATION AND RESOURCES NEEDED TO MAINTAIN HEALTH. [code = PATIENT/CAREGIVER WILL BE KNOWLEDGEABLE OF DISCHARGE PLANS AND WILL DEMONSTRATE/PROVIDE EDUCATION AND RESOURCES NEEDED TO MAINTAIN HEALTH.] Future Scheduled Test AGENCY AGNES L DISCHARGE PATIENT TO [facility] PHYSICIAN/HEALTH CARE PROVIDER AND MAY ACCEPT ORDERS FROM THE FOLLOWING PHYSICIANS: [code = AGENCY WILL DISCHARGE PATIENT TO [facility] PHYSICIAN/HEALTH CARE PROVIDER AND MAY ACCEPT ORDERS FROM THE FOLLOWING PHYSICIANS:] Future Scheduled Test SN REMOTE VIDEO VISIT(S) TO ASSESS/EVALUATE AND PROVIDE EDUCATION/TRAINING ON INTERVENTIONS/PROCEDURES PER THE POC, SAFE MEDICATION ADMINISTRATION, DISEASE MANAGEMENT , SIGNS/SYMPTOMS OF EXACERBATION, METHODS TO PREVENT EXACERBATION, AND SIGNS/SYMPTOMS TO REPORT AGENCY, PHYSICIAN OR 911. [code = SN REMOTE VIDEO VISIT(S) TO ASSESS/EVALUATE AND PROVIDE EDUCATION/TRAINING ON INTERVENTIONS/PROCEDURES PER THE POC, SAFE MEDICATION ADMINISTRATION, DISEASE MANAGEMENT , SIGNS/SYMPTOMS OF EXACERBATION, METHODS TO PREVENT EXACERBATION, AND SIGNS/SYMPTOMS TO REPORT AGENCY, PHYSICIAN OR 911.] Future Scheduled Test CLINICIAN TO EDUCATE PATIENT [...] PROVIDERS/ DISCIPLINES, REFERRALS TO OUTSIDE ENTITIES, ETC.). OT REMOTE VIDEO VISIT(S) TO ASSESS, EVALUATE [...] NEEDED TO SUPPLEMENT THE PLAN OF CARE. CLINICIAN TO EDUCATE PATIENT / CAREGIVER IN FALL PREVENTION AND PROVIDE INTERVENTIONS TO REDUCE FALL RISK AND ENHANCE HOME SAFETY PATIENT/CAREGIVER WILL BE KNOWLEDGEABLE OF DISCHARGE PLANS AND WILL DEMONSTRATE/PROVIDE EDUCATION AND RESOURCES NEEDED TO MAINTAIN HEALTH. OCCUPATIONAL THERAPIST TO PROVIDE SKILLED MAINTENANCE THERAPY SERVICES TO DESIGN OR ESTABLISH A MAINTENANCE PROGRAM OR PERFORM MAINTENANCE THERAPY INTERVENTIONS. [code = PSYCHOSOCIAL / COGNITIVE ASSESSMENT INDICATES THE FOLLOWING NEEDS: (SOCIAL, FINANCIAL, TRANSPORTATION, ADDITIONAL CARE PROVIDERS/ DISCIPLINES, REFERRALS TO OUTSIDE ENTITIES, ETC.). OT REMOTE VIDEO VISIT(S) TO ASSESS, EVALUATE [...] NEEDED TO SUPPLEMENT THE PLAN OF CARE. CLINICIAN TO EDUCATE PATIENT / CAREGIVER IN FALL PREVENTION AND PROVIDE INTERVENTIONS TO REDUCE FALL RISK AND ENHANCE HOME SAFETY PATIENT/CAREGIVER WILL BE KNOWLEDGEABLE OF DISCHARGE PLANS AND WILL DEMONSTRATE/PROVIDE EDUCATION AND RESOURCES NEEDED TO MAINTAIN HEALTH. OCCUPATIONAL THERAPIST TO PROVIDE SKILLED MAINTENANCE THERAPY SERVICES TO DESIGN OR ESTABLISH A MAINTENANCE PROGRAM OR PERFORM MAINTENANCE THERAPY INTERVENTIONS.] Future Scheduled Test PHYSICAL T HERAPIST TO [...] DESIGNED TO RESTORE FUNCTIONAL STRENGTH AND ROM. PHYSICAL THERAPY TO PROVIDE TECHNIQUES DESIGNED TO [...] DESIGNED TO RESTORE FUNCTIONAL STRENGTH AND ROM. PHYSICAL THERAPY TO PROVIDE TECHNIQUES DESIGNED TO [...] MAINTENANCE PROGRAM OR PERFORM MAINTENANCE THERAPY INTERVENTIONS.] Future Scheduled Test SN TO DIGGS GE LOAIZA CATH, 12FR/10CC MONTHLY [code = SN TO CHANGE LOAIZA CATH, 12FR/10CC MONTHLY] Future Scheduled Test PRESSURE U LCERS ON BUTTOCK CLEAN WITH WOUND WASH, COVERED WITH BORDERED FOAM DRESSING. WOUND CARE TO BUTTOCKS IS TWICE WEEKLY [code = PRESSURE ULCERS ON BUTTOCK CLEAN WITH WOUND WASH, COVERED WITH BORDERED FOAM DRESSING. WOUND CARE TO BUTTOCKS IS TWICE WEEKLY] Goal 2024-11-20 Patient Goal - T O BE ABLE TO GET UP AND GET AROUND THE HOUSE Goal 2025-05-22 Patient Goal - T O BE ABLE TO GET UP AND GET AROUND THE HOUSE Goal 2025-03-22 Patient Goal - T O BE ABLE TO GET UP AND GET AROUND THE HOUSE Goal 2025 Patient Goal - T O BE ABLE TO GET UP AND GET AROUND THE HOUSE Goal 2025-06-02 Patient Goal - T O BE ABLE TO GET UP AND GET AROUND THE HOUSE PT IS ABLE TO DO SO NOW WITH MOTORIZED WHEELCHAIR Goal Provider Goal - PATIENT/CAREGIVER WILL VERBALIZE/DEMONSTRATE ABILITY TO CARE FOR HYPERTENSION. GOAL TO BE MET BY 25 Goal Provider Goal - GENITOURINARY SYSTEM WILL BE EVALUATED AND EXACERBATIONS IDENTIFIED WITH INTERVENTIONS IMPLEMENTED TO MINIMIZE COMPLICATIONS. PATIENT / CAREGIVER WILL VERBALIZE/DEMONSTRATE ABILITY TO CARE FOR ALTERED GENITOURINARY STATUS. GOAL TO BE MET BY 06.12.25 Goal Provider Goal - CHANGES IN SKIN INTEGRITY STATUS WILL BE IDENTIFIED AND REPORTED TO THE PHYSICIAN FOR PROMPT INTERVENTION. PATIENT / CAREGIVER WILL VERBALIZE/DEMONSTRATE ADEQUATE KNOWLEDGE OF INTEGUMENTARY STATUS AND APPROPRIATE MEASURES TO PROMOTE SKIN INTEGRITY AND PREVENT INJURY. GOAL TO BE MET BY 06.12.25 Goal Provider Goal - PATIENT / CAREGIVER WILL VERBALIZE/DEMONSTRATE ABILITY TO PERFORM WOUND CARE. WOUND STATUS WILL IMPROVE EVIDENCED BY A DECREASE IN SIZE, DRAINAGE, ABSENCE OF INFECTION, AND DECREASED PAIN. GOAL TO BE MET BY 05.28.25 Goal Provider Goal - A PLAN OF CARE WILL BE ESTABLISHED THAT MEETS ALL PATIENT'S NURSING NEEDS AND COUNTERSIGNED BY PHYSICIAN. Goal Provider Goal - CARDIOVASCULAR EXACERBATIONS WILL BE IDENTIFIED PROMPTLY AND INTERVENTIONS INITIATED TO MINIMIZE ASSOCIATED RISK. PATIENT/CAREGIVER WILL VERBALIZE/DEMONSTRATE ABILITY TO CARE FOR ALTERED CARDIOVASCULAR STATUS. GOALS TO BE MET BY 25 Goal Provider Goal - ALL EXACERBATIONS WILL BE IDENTIFIED PROMPTLY AND INTERVENTIONS INITIATED TO MINIMIZE ASSOCIATED RISK. PATIENT / CAREGIVER WILL VERBALIZE/DEMONSTRATE ABILITY TO CARE FOR DIABETES. GOAL TO BE MET BY 05.28.25 Goal Provider Goal - PATIENT AND/OR CAREGIVER [...] THROUGHOUT CERTIFICATION PERIOD. Goal Provider Goal - THROUGH REMOTE VIDEO VISIT(S) EDUCATION WILL BE RECEIVED TOWARDS POC ORDERS/GOALS. PATIENT/CAREGIVER WILL VERBALIZE/DEMONSTRATE THE FOLLOWING INTERVENTIONS/PROCEDURES Goal Provider Goal - PATIENT TO DEMONSTRATE REDUCED FALL RISK AND IMPROVE HOME SAFETY BY 9.30 Goal Provider Goal - PATIENT/CAREGIVER VERBALIZES AND [...] THEIR CARE PLAN THROUGHOUT THE CERTIFICATION PERIOD THROUGH REMOTE VIDEO VISIT(S) EDUCATION WILL BE RECEIVED TOWARDS POC ORDERS/GOALS. PATIENT/CAREGIVER WILL VERBALIZE/DEMONSTRATE THE FOLLOWING INTERVENTIONS/TECHNIQUES OCCUPATIONAL THERAPY EVALUATION WILL BE COMPLETED. PLAN OF CARE WILL BE ORDERED BY PHYSICIAN AND PROVIDED BY OCCUPATIONAL THERAPIST. ALL GOALS TO BE MET BY END OF CURRENTLY APPROVED PLAN OF CARE. PATIENT TO DEMONSTRATE REDUCED FALL RISK AND IMPROVE HOME SAFETY BY 07/21/25 PATIENT AND/OR CAREGIVER WILL BE IN AGREEMENT WITH DISCHARGE PLANS AND WILL VERBALIZE HAVING RESOURCES AND KNOWLEDGE TO MAINTAIN HEALTH. MAINTENANCE THERAPY OT SERVICES WILL ENSURE THE PATIENT WILL REMAIN SAFE IN THEIR HOME ENVIRONMENT AND WILL MITIGATE DECLINE IN FUNCTION. GOAL TO BE MET BY 07/21/25 Goal Provider Goal - A PHYSICAL THERAPY PLAN OF CARE WILL BE ORDERED BY PHYSICIAN AND PROVIDED BY PHYSICAL THERAPY. ALL GOALS TO BE MET BY END OF CURRENTLY APPROVED PLAN OF CARE. PATIENT WILL DEMONSTRATE IMPROVED FUNCTION IN RESPONSE TO SPECIFIC EXERCISE(S) AND/OR MANUAL THERAPY TECHNIQUE(S), EVIDENCED BY INCREASED INDEPENDENCE IN ACTIVITIES OF DAILY LIVING. GOAL TO BE MET BY 07 18 25 PATIENT WILL DEMONSTRATE IMPROVED BED MOBILITY. GOAL TO BE MET BY 07 18 25 PATIENT / CAREGIVER WILL DEMONSTRATE SAFE TRANSFERS USING APPROPRIATE BODY MECHANICS AND EQUIPMENT. GOAL TO BE MET BY 07 18 25 PATIENT TO DEMONSTRATE REDUCED FALL RISK AND IMPROVE HOME SAFETY BY 07 18 25 PATIENT/CAREGIVER WILL DEMONSTRATE DECREASED FALL RISK DURING FUNCTIONAL ACTIVITIES. GOAL TO BE MET BY 07 18 25 PATIENT WILL DEMONSTRATE IMPROVED WHEELCHAIR MOBILITY AND SAFETY. GOAL TO BE MET BY 07 18 25 PATIENT AND/OR CAREGIVER WILL BE IN AGREEMENT WITH DISCHARGE PLANS AND WILL VERBALIZE HAVING RESOURCES AND KNOWLEDGE TO MAINTAIN HEALTH. MAINTENANCE THERAPY PT SERVICES WILL ENSURE THE PATIENT WILL REMAIN SAFE IN THEIR HOME ENVIRONMENT AND WILL MITIGATE DECLINE IN FUNCTION. GOAL TO BE MET BY 07 18 25 Reason for Visit MODERATE ASSIST WITH TRANSFER/AMBULATION/ADLS Encounters Start Date/Time End Date/Time Encounter Type Admission Type Attending Clinicians Care Facility Care Department Encounter ID Discharge Date Discharge Status Discharge Condition Discharge Reason Percent Goals Met 2025-05-23 00:00:00 2025-06-02 00:00:00 Outpatient RECERTIFIC ATION [facility] [id number] 00:00:00 DISCHARGED /TRANSFERR ED TO A HOME UNDER CARE OF ORGANIZED HOME HEALTH SERVICE ORGANIZATI ON IN ANTICIPATI ON OF COVERED SKILLED CARE MODERATE ASSIST WITH TRANSFER/A MBULATION/ ADLS [facility] 10.71
--- OUTSIDE RECORDS SUMMARY | 2025-06-01 20:00 | XMS_ITS | Clinical Summary ---
Author Organization Unknown Care Team Providers Care Call Center Rn Name Role Phone TYSON MURILLO, YUMIKO Unavailable [...] 09-25 00:00: 00 ATHSCL HEART DISEASE OF [place] CORONARY ARTERY W/O ANG PCTRS Active 09-25 [...] OF NICOTINE DEPENDENCE Active 09-25 00:00: 00 SENIOR CARE (CURRENT) USE OF ASPIRIN Active 05-22 00:00: 00 SENIOR CARE (CURRENT) USE OF 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 ICS/ANTIPLAT ELETS Active [...] 09-25 00:00: 00 05-29 23:59 :00 No [id number] HEART DISEASE 1 tablet DAILY 1 tablet DAILY (route: oral) Med Classific ation: Hematolog ical Agents baclofen 10 mg tablet 09-25 00:00: 00 Yes [id number] MUSCLE SPASMS 1 tablet 2 TIMES DAILY 1 tablet 2 TIMES DAILY (route: oral) Med Classific ation: Locomotor System Basaglar KwikPen U-100 Insulin 100 unit/mL (3 mL) subcutaneou s 09-25 00:00: 00 Yes [id number] DIABETIC 42 unit BEDTIME 42 unit BEDTIME (route: [facility]) Med Classific ation: Endocrine Cherelle Back and Body 500 mg-32.5 mg tablet 09-25 00:00: 00 Yes [id number] PAIN 1 tablet NEEDED 1 tablet NEEDED (route: oral) Med Classific ation: Analgesic , Anti-infl ammatory or Antipyret ic carvedilol 3.125 mg tablet 09-25 00:00: 00 Yes [id number] HEART RATE 1 tablet 2 TIMES DAILY 1 tablet 2 TIMES DAILY (route: oral) Med Classific ation: Cardiovas cular Therapy Agents clopidogrel 75 mg tablet 09-25 00:00: 00 Yes [id number] BLOOD THINNER 1 tablet DAILY 1 tablet DAILY (route: oral) Med Classific ation: Hematolog ical Agents folic acid 1 mg tablet 09-25 00:00: 00 Yes [id number] SUPPLEMENT 1 tablet DAILY 1 tablet DAILY (route: oral) Med Classific ation: Electroly te Balance-N utritiona l Products furosemide 40 mg tablet 09-25 00:00: 00 Yes [id number] FLUID 1 tablet DAILY 1 tablet DAILY (route: oral) Med Classific ation: Cardiovas cular Therapy Agents gabapentin 100 mg capsule 09-25 00:00: 00 Yes [id number] NERVE PAIN 2 capsule 3 TIMES DAILY 2 capsule 3 TIMES DAILY (route: oral) Med Classific ation: Central Nervous System Agents lamotrigine 100 mg tablet 09-25 00:00: 00 Yes [id number] SEIZURES 1 tablet 2 TIMES DAILY 1 tablet 2 TIMES DAILY (route: oral) Med Classific ation: Central Nervous System Agents lamotrigine 150 mg tablet 09-25 00:00: 00 Yes [id number] SEIZURES 1 tablet BEDTIME 1 tablet BEDTIME (route: oral) Med Classific ation: Central Nervous System Agents levofloxaci n 750 mg tablet 09-25 00:00: 00 11-10 23:59 :00 No [id number] INFECTION 1 tablet DAILY 1 tablet DAILY (route: oral) Med Classific ation: Anti-Infe ctive Agents multivitami n tablet - 00:00: 00 Yes [id number] SUPPLEMENT 1 tablet DAILY 1 tablet DAILY (route: oral) Med Classific ation: Electroly te Balance-N utritiona l Products ondansetron 4 mg disintegrat ing tablet 09-25 00:00: 00 Yes [id number] NAUSEA 1 tablet NEEDED 1 tablet NEEDED (route: oral) Med Classific ation: Gastroint estinal Therapy Agents Pacerone 400 mg tablet 09-25 00:00: 00 Yes [id number] HEART RATE 1 tablet 2 TIMES DAILY 1 tablet 2 TIMES DAILY (route: oral) Med Classific ation: Cardiovas cular Therapy Agents pantoprazol e 40 mg tablet,jossie yed release 09-25 00:00: 00 Yes [id number] ACID REFLUX 1 tablet DAILY 1 tablet DAILY (route: oral) Med Classific ation: Gastroint estinal Therapy Agents amoxicillin 875 mg-potassiu m clavulanate 125 mg tablet 01-31 00:00: 00 02-07 23:59 :00 No [id number] UTI 1 tablet EVERY AM 1 tablet EVERY AM (route: oral) Med Classific ation: Anti-Infe ctive Agents levofloxaci n 500 mg tablet 14 00:00: 00 03-10 23:59 :00 No [id number] DYSURIA 1 tablet DAILY 1 tablet DAILY (route: oral) Med Classific ation: Anti-Infe ctive Agents doxycycline hyclate 100 mg tablet 03-24 00:00: 00 03-31 23:59 :00 No [id number] DYSURIA 1 tablet 2 TIMES DAILY 1 tablet 2 TIMES DAILY (route: oral) Med Classific ation: Anti-Infe ctive Agents ertapenem 1 gram solution for injection 03-31 00:00: 00 04-03 23:59 :00 No [id number] UTI 1 g DAILY 1 g DAILY (route: injection) Med Classific ation: Anti-Infe ctive Agents lidocaine (PF) 10 mg/mL (1 %) injection solution 19 00:00: 00 04-03 23:59 :00 No [id number] DILUTING FOR ANTIBIOTIC Per instruc tions DAILY Per instructio ns DAILY (route: injection) Med Classific ation: Anestheti cs cefdinir 300 mg capsule 04-19 00:00: 00 04-29 23:59 :00 No [id number] UTI SYMPTOMS 1 capsule 2 TIMES DAILY 1 capsule 2 TIMES DAILY (route: oral) Med Classific ation: Anti-Infe ctive Agents heparin lock flush (porcine) 10 unit/mL intravenous solution 05-07 00:00: 00 05-17 23:59 :00 No [id number] BLOOD THINNER Per instruc tions DAILY Per instructio ns DAILY (route: intravenou s) Med Classific ation: Hematolog ical Agents sodium chloride 0.9 % (flush) injection syringe 05-07 00:00: 00 05-13 23:59 :00 No [id number] FLUSH Per instruc tions DAILY Per instructio ns DAILY (route: injection) Med Classific ation: Electroly te Balance-N utritiona l Products tobramycin 10 mg/mL intravenous solution 05-07 00:00: 00 05-13 23:59 :00 No [id number] ANTIBIOTIC 480 mg DAILY 480 mg DAILY (route: intravenou s) Med Classific ation: Anti-Infe ctive Agents Heparin Lock Flush (Porcine) (PF) 10 unit/mL intravenous syringe 05-08 00:00: 00 05-15 23:59 :00 No [id number] IV ADMINISTRAT ION 5 mL DAILY 5 mL DAILY (route: intravenou s) Med Classific ation: Hematolog ical Agents Normal Saline Flush 0.9 % injection syringe 05-08 00:00: 00 05-15 23:59 :00 No [id number] IV ADMINISTRAT ION Per instruc tions DAILY Per instructio ns DAILY (route: injection) Med Classific ation: Electroly te Balance-N utritiona l Products tobramycin 40 mg/mL injection solution 05-08 00:00: 00 05-15 23:59 :00 No [id number] UTI Per instruc tions DAILY Per instructio ns DAILY (route: injection) Med Classific ation: Anti-Infe ctive Agents calcium 250 mg (phosphate) -vit D3 12.5 mcg (500 unit) chewable tablet 05-17 00:00: 00 Yes [id number] DEFICI7 1 tablet DAILY 1 tablet DAILY (route: oral) Med Classific ation: Electroly te Balance-N utritiona l Products Eliquis 5 mg tablet 05-25 00:00: 00 Yes [id number] HEART 1 tablet 2 TIMES DAILY 1 tablet 2 TIMES DAILY (route: oral) Med Classific ation: Hematolog ical Agents methenamine hippurate 1 gram tablet 05-17 00:00: 00 Yes [id number] UROLOGY 1 tablet 2 TIMES DAILY 1 tablet 2 TIMES DAILY (route: oral) Med Classific ation: Genitouri nary Therapy sacubitril 24 mg-valsarta n 26 mg tablet 05-25 00:00: 00 Yes [id number] HEART FAILURE 1 tablet 2 TIMES DAILY 1 tablet 2 TIMES DAILY (route: oral) Med Classific ation: Cardiovas cular Therapy Agents Vitamin C 500 mg tablet 05-14 00:00: 00 Yes [id number] SUPPLEMENT 1 tablet DAILY 1 tablet DAILY [...] WRAP WITH UNNA BOOT DRESSING COVER WITH [id number] , SECURE WITH KERLEX AND COBAN. TO BE CHANGED 2XWEEK. [code = SKILLED NURSE TO PERFORM/TEACH WOUND CARE TO L[facility] [place] WITHWOUND WASH APPLY CALCIUM ALGINATE TO WOUND BED, WRAP WITH UNNA BOOT DRESSING COVER WITH [id number] , SECURE WITH KERLEX AND COBAN. TO [...] Test AGENCY AGNES L DISCHARGE PATIENT TO [facility]/HEALTH CARE PROVIDER AND MAY ACCEPT ORDERS FROM THE FOLLOWING PHYSICIANS: [code = AGENCY WILL DISCHARGE PATIENT TO [facility]/HEALTH CARE PROVIDER AND MAY ACCEPT ORDERS [...] 2025-06-02 00:00:00 Outpatient RECERTIFIC ATION KASHIF PEREZ [facility] [id number] 4149-09-20 00:00:00 DISCHARGED /TRANSFERR ED TO A HOME UNDER CARE OF ORGANIZED HOME HEALTH SERVICE ORGANIZATI ON IN ANTICIPATI ON OF COVERED SKILLED CARE MODERATE ASSIST WITH TRANSFER/A MBULATION/ [facility] ED 10.71
--- OUTSIDE RECORDS SUMMARY | 2025-06-02 09:29 | XMS_ITS | Encounter Summary ---
[facility] Address [address] [place] [address] Care Team Providers Care Zig Zag Stitcher Name Role Phone Gustavo Mehta MD Primary Care Provider + [phone] Reason for Referral * Home Health (Routine) - Pending Review Specialty Diagnoses / Procedures Referred By Ema crow Referred To Contact Home Health Services Diagnoses [...] of skin of multiple topographic sites Procedures OK OFFICE/OUTPATIENT NEW MODERATE MDM 45 MINUTES Patricia Varela MD [address] [place] [address] Phone: tel: fax: Referral ID Status Reason Start Date Expiration Date Visits Requested Visits Authorized [id number] Pending Review Specialty Services Required 06/11/2025 09/10/2026 999 999 Reason for Visit * Reason Comments Headache Back Pain * Auth/Cert (Routine) Specialty Diagnoses / Procedures Referred By Ema crow Referred To Contact Diagnoses Cellulitis Referral ID Status Reason Start Date Expiration Date Visits Re quested Visits Authorized [id number] 1 1 Encounter Details Date Type Department Care Team (Late st Contact Info) Description 06/02/2025 9:29 AM EDT - 06/11/2025 3:45 PM EDT Hospital Encounter [address] [place] [id number] Mary Miller MD [address] [facility] [place] [address] Luz Denson MD [address] [employer] 4th Floor [place], [place] [address] Zakiya Mccormick, DO [address] [facility] [address] [place], [place] [id number] Stephanie Moser MD [address] [facility] [address] [place] [address] Alondra Lanza MD [address] [address] Patricia Varela MD [address] [place] [address] Cellulitis of left lower extremity [...] sites; Cellulitis of left foot Discharge Disposition: Home or Self Care Social History Tobacco Use Types Packs/Day Years Used Date Smoking Tobacco: Never Passive Smoke Exposure: Never Smokeless Tobacco: Never Alcohol Use Standard Drinks/Week Comments No 0 (1 standard drink = 0.6 oz pur e alcohol) [facility] Utilities Answer Date Recorded In the [...] Brief Depression Severity Measure Score 2 08/09/2023 [facility] - Occupational Stress Questionnaire Answer Date [...] GED or equivalent No 09/01/2024 Preferred Language Egyptian 09/01/2024 PHQ-2 Answer Date Recorded Patient Health [...] 9:33 AM EDT Helena Tan RN * [place] Suicide Severity Rating Scale (Screener/Recent Self-Report) Question Answer Date of Assessment Author 1. Wish to be (Past 1 Month) No 025 9:33 AM KATYT Helena Tan RN 2. Non-Specific Active Suici jaylon Thoughts (Past 1 Month) No 06/02/2025 9:33 AM KATYT Debora Tan RN 6. Suicidal Behavior (Lifetime) No 9:33 AM EDT Helena Tan RN documented as of this encounter Discharge Summaries * Patricia Varela MD - 06/11/2025 11:45 AM EDT Images from the original note were not included. [facility] Medicine Services DISCHARGE SUMMARY Patient Name: Vitaly [...] his LLE. Reports he saw ID in [place] a while ago but they said there [...] ABS 0.54* 0.51* MCV 75.9* 75.2* Lab 06/10/2515 06/09/25436 SODIUM 134* 137 POTASSIUM 4.9 4.4 [...] Urine Culture - Urine, Indwelling Urethral Catheter [[id number]] (Abnormal) (Susceptibility) Collected: 06/02/25 1231 Lab Status: [...] Resistant Blood Culture - Blood, Hand, Right [[id number]] (Normal) Collected: 06/02/25 1137 Lab Status: Final result Specimen: Blood from Hand, Right Updated: 06/07/25 1145 Blood Culture No growth at 5 days COVID-19, FLU A/B, RSV PCR 1 HR TAT - Swab, Nasopharynx [[id number]] (Normal) Collected: 06/02/25 1125 Lab Status: Final result Specimen: Swab from Nasopharynx Updated: 06/02/25 1239 COVID19 Not Detected Influenza A PCR Not Detected Influenza B PCR Not Detected RSV, PCR Not Detected Wound Culture - Swab, Leg, Left [[id number]] (Abnormal) (Susceptibility) Collected: 06/02/25 1104 Lab Status: [...] monotherapy. Blood Culture - Blood, Hand, Right [[id number]] (Normal) Collected: 06/02/25 1055 Lab Status: Final [...] Garcia MD 06/02/2025 12:22PM EDT Workstation ID: [id number] XR Chest 1 View Result Date: 06/02/2025 [...] MD 06/02/2025 10:45 AM EDT Workstation ID: [id number] Results for orders placed during the hospital [...] treatment after discharge. Follow-up provider: GUSTAVO MEHTA [[id number]] Reason/Clinical Findings: S/P hospital stay Describe mobility limitations that make leaving home difficult: generalized weakness and debility. Nursing/Therapeutic Services Requested: Care Home Physical Therapy Occupational Therapy [facility] orders: Medication education Wound care dressing/changes PT [...] minutes on this discharge activity which included: yhqu-uz-lodwojekgyikv with the patient, reviewing the data in the system, coordination of the care with the nursing staff as well as consultants, documentation, and entering orders. documented in this encounter Discharge Instructions * Attachments The following attachments cannot be sent through Care Everywhere. * Cellulitis Adult (Egyptian) documented in this encounter Medications at Time [...] tablet Take 1 tablet by mouth Daily. furosemide (LASIX) 40 MG tablet Take 1 tablet by mouth Daily. 04/03/2020 gabapentin (NEURONTIN) 100 MG capsule Take 2 [...] Hours As Needed for Nausea or Vomiting. pantoprazole (PROTONIX) 40 MG EC tablet Take 1 tablet by mouth 2 (Two) Times a Day. sacubitril-valsa rtan (ENTRESTO) 24-26 MG tablet Take 1 tablet by mouth 2 (Two) Times a Day. vitamin C (ASCORBIC ACID) 250 MG tablet Take 2 tablets by mouth Daily. oxyCODONE (ROXICODONE) 5 MG immediate release tabletIndication s:Cellulitis of left lower extremity,Cellul itis of left foot Take 1 tablet by mouth Every 4 (Four) Hours As Needed for Moderate Pain for up to 3 days. 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 [facility] 2023 diagnosis of sepsis per admission notes, left lower extremity cellulitis with pressure injury at buttocks. 06/15/24 Dr Colón saw and recommended amputation; patient refused ; see his note for detail 06/17/23 Dr buenrsotro discussed potential options for heel debridement with patient; MRI no osteomyelitis per radiology; taken to OR PROCEDURE: Left 25587: Debridement of skin and subcutaneous tissue 31358: wound vacuum-assisted closure, wound measuring 2.5 cm [...] 07/25/[address] Buenrostro PROCEDURE: Left 20920: Debridement of skin and subcutaneous tissue 79816: Wound vacuum-assisted closure culture data with MRSA/aneta. [...] to left CHIP per vascular team d/w id Procedure/CPT?? Codes: Procedure(s): LLE arteriogram with run-off possible intervention 01/28/24 Dr. Buenrostro PROCEDURE: Left 41429: 2nd lesser toe amputation at the level of the metatarsophalangeal joint 67590-78: 3rd lesser toe amputation at the level of the metatarsophalangeal joint 02/01/24 DIRECT MARKETING REPRESENTATIVE overnight , shaking epsode 02/04/24 overnight events [...] reports being followed by Dr. Faust in [place] and has seen Dr Oneal (ID in [place]); he is not a good historian with respect to detail. Reports having had some further surgery to the left foot although he is unable to clarify specific date/procedure. Culture at [facility] August 07, 2024 from left foot wound with ESBL Klebsiella pneumoniae and pseudomonas aeruginosa (microbiology lab there reports the Pseudomonas is sensitive to Merrem). He reports his outpatient practitioners had recommended admission to the hospital for IV antibiotics but patient had refused at that time. He also reports that he was in the emergency room at [facility] mid August, no cultures done at that time. Patient reports practitioners at [facility] had recommended higher level amputation but patient has continued to refuse that. He was readmitted to [facility] on August 31, 2024 with worsening odor/drainage andredness/pain to the left lower extremity in recent days/weeks. He reports having been taking outpatient Levaquin; prior history MRSA/PSA and ESBL organisms 09/04/24 Dr Marcano. Procedure/CPT?? Codes: RIGHT SPRING CRATER access - ultrasound guided Aortogram with LEFT lower extremity run-off LEFT PT angioplasty (9n459gl Nanocross) LEFT plantar angioplasty (4y824fd Nanocross, 2.5y039to UltraverseRx) LEFT AT angioplasty (6l099oc Nanocross, 2.9d584gi UltraverseRx) LEFT DP angioplasty (8e331np Nanocross, 2.4s992cf UltraverseRx) RIGHT SPRING CRATER closure (Angioseal) 09/07/24 Dr Marcano Procedure/CPT?? Codes: RIGHT SPRING CRATER access - ultrasound guided Aortogram with LEFT lower extremity run-off LEFT Pr AVF embolization RIGHT SPRING CRATER closure 09/09/24 moved to ICU overnight with [...] LEFT; Surgeon: Cecil Buenrostro Jr., MD; Location: [facility] OR; Service: Orthopedics; Laterality: Left; ANTERIOR CERVICAL DISCECTOMY W/ FUSION Bilateral 07/17/2020 Procedure: Cervical discectomy anterior with fusion C3-4; Surgeon: Tyree Tan MD; Location: [facility]; Service: Neurosurgery; Laterality: Bilateral; AORTOGRAM N/A 01/26/2024 Procedure: ABDOMINAL AORTIC ANGIOGRAM, LLE ANGIOGRAM, LEFT ANTERIOR TIBIAL ATHERECTOMY, LEFT ANTERIOR TIBIAL ANGIOPLASTY; Surgeon: Archie Olvera MD; Location: [facility]; Service: Vascular; Laterality: N/A; CONTRAST: 50 ML, FT: 2 MIN 54 SEC, DOSE: 66 MGY. BACK SURGERY FOR DISC HERNIATION CARDIAC CATHETERIZATION CARDIAC CATHETERIZATION N/A 09/04/2024 Procedure: Peripheral angiography - Left lower extremity angio - Right femoral access; Surgeon: Jared Marcano MD; Location: [facility] CATH INVASIVE LOCATION; Service: Peripheral Vascular; Laterality: N/A; CORONARY ANGIOPLASTY WITH STENT PLACEMENT stent x 1 INCISION AND DRAINAGE FOOT Left 06/17/2023 Procedure: LEFT FOOT DEBRIDEMENT WOUND VACUUM ASSISTED CLOSURE; Surgeon: Cecil Buenrostro Jr., MD;Location: [facility] OR; Service: Orthopedics; Laterality: Left; INCISION AND DRAINAGE LEG Left 07/25/2023 Procedure: INCISION AND DRAINAGE HEEL, WOUND VAC; Surgeon: Cecil Buenrostro Jr., MD; Location: [facility] OR; Service: Orthopedics; Laterality: Left; INTERVENTIONAL RADIOLOGY PROCEDURE N/A 05/02/2019 Procedure: IVC FILTER PLACEMENT; Surgeon: Pedro Zapien MD; Location: [facility] CATH INVASIVE LOCATION; Service: Interventional Radiology INTERVENTIONAL RADIOLOGY PROCEDURE Left 09/07/2024 Procedure: LEFT peroneal arteriovenous fistula embolization - Right femoral access; Surgeon: Jared Marcano MD; Location: [facility] CATH INVASIVE LOCATION; Service: Cardiovascular; Laterality: Left; Please coordinate with Gautam Patel ([facility] [phone] who will bring coils LUMBAR DISCECTOMY N/A 05/03/2019 Procedure: THORACIC LAMINECTOMY T11-12; Surgeon: Tyree Tan MD; Location: [facility] OR; Service: Neurosurgery Pediatric History Patient Parents [...] Zakiya Mccormick DO 5 mg at 06/10/25 220 baclofen (LIORESAL) tablet 10 mg 10 mg Oral Q12H Luz Denson MD 10 mg at 06/10/25 220 sennosides-docusate (PERICOLACE) 8.6-50 MG per tablet 2 [...] 50 mL IVPB 6 mg/kg (Adjusted) Intravenous [id number] Parham MD 100 mL/hr at 06/10/25 0828 550 mg at 06/10/25 0828 dextrose (D50W) (25 g/50 mL) IV injection 25 g 25 g Intravenous Q15 Min PRN Luz Denson MD dextrose (GLUTOSE) oral gel 15 g 15 g Oral Q15 Min PRN Luz Denson MD finasteride (PROSCAR) tablet 5 mg 5 mg Oral Daily Zakiya Mccormick DO 5 mg at 06/10/25 0829 folic acid (FOLVITE) tablet 1 mg 1 [...] sensitive to Merrem per microbiology lab at [facility]. Cx at [facility] as below; He has had multiple surgeries [...] outpatient ID doctor and Dr Faust his drywall hanger framer for further care/workup ; readmission May 2025 [...] from the original note were not included. [facility] Medicine Services PROGRESS NOTE Patient Name: Vitaly [...] Date/Time Wound Culture - Swab, Leg, Left [[id number]] (Abnormal) (Susceptibility) Collected: 06/02/25 1104 Lab Status: [...] Urine Culture - Urine, Indwelling Urethral Catheter [[id number]] (Abnormal) (Susceptibility) Collected: 06/02/25 1231 Lab Status: [...] his LLE. 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 Admitted to [facility] June 13 2023 diagnosis of sepsis per admission notes, left lower extremity cellulitis with pressure injury at buttocks. 06/15/24 Dr Colón saw and recommended amputation; patient refused ; see his note for detail 06/17/23 Dr buenrostro discussed potential options for heel debridement with patient; MRI no osteomyelitis per radiology; taken to OR PROCEDURE: Left 31940: Debridement of skin and subcutaneous tissue 81265: wound vacuum-assisted closure, wound measuring 2.5 cm [...] 07/25/[address] Buenrostro PROCEDURE: Left 76365: Debridement of skin and subcutaneous tissue 37317: Wound vacuum-assisted closure culture data with MRSA/aneta. [...] to left CHIP per vascular team d/w id Procedure/CPT?? Codes: Procedure(s): LLE arteriogram with run-off possible intervention 01/28/24 Dr. Buenrostro PROCEDURE: Left 77260: 2nd lesser toe amputation at the level of the metatarsophalangeal joint 62111-85: 3rd lesser toe amputation at the level of the metatarsophalangeal joint 02/01/24 DIRECT MARKETING REPRESENTATIVE overnight , shaking epsode 02/04/24 overnight events [...] reports being followed by Dr. Faust in [place] and has seen Dr Oneal (ID in [place]); he is not a good historian with respect to detail. Reports having had some further surgery to the left foot although he is unable to clarify specific date/procedure. Culture at [facility] August 07, 2024 from left foot wound with ESBL Klebsiella pneumoniae and pseudomonas aeruginosa (microbiology lab there reports the Pseudomonas is sensitive to Merrem). He reports his outpatient practitioners had recommended admission to the hospital for IV antibiotics but patient had refused at that time. He also reports that he was in the emergency room at [facility] mid August, no cultures done at that time. Patient reports practitioners at [facility] had recommended higher level amputation but patient has continued to refuse that. He was read[facility] 2024 with worsening odor/drainage andredness/pain to the left lower extremity in recent days/weeks. He reports having been taking outpatient Levaquin; prior history MRSA/PSA and ESBL organisms 09/04/24 Dr Marcano. Procedure/CPT?? Codes: RIGHT SPRING CRATER access - ultrasound guided Aortogram with LEFT lower extremity run-off LEFT PT angioplasty (1x765ht Nanocross) LEFT plantar angioplasty (6a042st Nanocross, 2.7b603lz UltraverseRx) LEFT AT angioplasty (9e503xg Nanocross, 2.1y156cd UltraverseRx) LEFT DP angioplasty (7n290kx Nanocross, 2.0s552cb UltraverseRx) RIGHT SPRING CRATER closure (Angioseal) 09/07/24 Dr Marcano Procedure/CPT?? Codes: RIGHT SPRING CRATER access - ultrasound guided Aortogram with LEFT lower extremity run-off LEFT Pr AVF embolization RIGHT SPRING CRATER closure 09/09/24 moved to ICU overnight with [...] LEFT; Surgeon: Cecil Buenrostro Jr., MD; Location: [facility] OR; Service: Orthopedics; Laterality: Left; ANTERIOR CERVICAL DISCECTOMY W/ FUSION Bilateral 07/17/2020 Procedure: Cervical discectomy anterior with fusion C3-4; Surgeon: Tyree Tan MD; Location:[facility] OR; Service: Neurosurgery; Laterality: Bilateral; AORTOGRAM N/A [...] Laterality: Left; Please coordinate with Gautam Patel ([facility]) [phone] who will bring coils LUMBAR DISCECTOMY N/A [...] BID Zakiya Mccormick DO 5 mg at 06/09/252047 baclofen (LIORESAL) tablet 10 mg 10 mg Oral Q12H Luz Denson MD 10 mg at 06/09/252047 sennosides-docusate (PERICOLACE) 8.6-50 MG per tablet 2 [...] Meals Zakiya Mccormick DO 3.125 mg at 06/09/25 1712 clopidogrel (PLAVIX) tablet 75 mg 75 mg Oral Daily Luz Denson MD 75 mg at 06/09/25 0931 DAPTOmycin (CUBICIN) 550 mg in sodium chloride 0.9 % 50 mL IVPB 6 mg/kg (Adjusted) Intravenous O51SFccigfyBritton Parham MD 100 mL/hr at 06/09/25 0931 550 mg at 06/09/25 0931 dextrose (D50W) (25 g/50 mL) IV injection 25 g 25 g Intravenous Q15 Min PRN Luz Denson MD dextrose (GLUTOSE) oral gel 15 g 15 g Oral Q15 Min PRN Luz Denson MD finasteride (PROSCAR) tablet 5 mg 5 mg Oral Daily Zakiya Mccormick DO 5 mg at 06/09/25930 folic acid (FOLVITE) [...] Driven Protocol Not Applicable PRLuz Oh MD Potassium Replacement - Follow Nurse / [...] sensitive to Merrem per microbiology lab at [facility]. 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 for further care/workup ; readmission May 2025 [...] from the original note were not included. [facility] Medicine Services PROGRESS NOTE Patient Name: Vitaly [...] Date/Time Wound Culture - Swab, Leg, Left [[id number]] (Abnormal) (Susceptibility) Collected: 06/02/25 1104 Lab Status: Edited Result - FINAL Specimen: Swab from Leg, Left Updated: 06/07/25 0756 Wound Culture Light growth (2+) Proteus mirabilis [...] Urine Culture - Urine, Indwelling Urethral Catheter [[id number]] (Abnormal) (Susceptibility) Collected: 06/02/25 1231 Lab Status: [...] his LLE. 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 Admitted [facility] 2023 diagnosis of sepsis per admission notes, left lower extremity cellulitis with pressure injury at buttocks. 06/15/24 Dr Colón saw and recommended amputation; patient refused ; see his note for detail 06/17/23 Dr buenrostro discussed potential options for heel debridement with patient; MRI no osteomyelitis per radiology; taken to OR PROCEDURE: Left 14400: Debridement of skin and subcutaneous tissue 54702: wound vacuum-assisted closure, wound measuring 2.5 cm [...] 07/25/[address] Buenrostro PROCEDURE: Left 37605: Debridement of skin and subcutaneous tissue 60661: Wound vacuum-assisted closure culture data with MRSA/aneta. [...] possible intervention 01/28/24 Dr. Buenrostro PROCEDURE: Left 07261: 2nd lesser toe amputation at the level of the metatarsophalangeal joint 10073-53: 3rd lesser toe amputation at the level of the metatarsophalangeal joint 02/01/24 DIRECT MARKETING REPRESENTATIVE overnight , shaking epsode 02/04/24 overnight events [...] reports being followed by Dr. Faust in [place] and has seen Dr Oneal (ID in [place]); he is not a good historian with respect to detail. Reports having had some further surgery to the left foot although he is unable to clarify specific date/procedure. Culture at [facility] August 07, 2024 from left foot wound with ESBL Klebsiella pneumoniae and pseudomonas aeruginosa (microbiology lab there reports the Pseudomonas is sensitive to Merrem). He reports his outpatient practitioners had recommended admission to the hospital for IV antibiotics but patient had refused at that time. He also reports that he was in the emergency room at [facility] mid August, no cultures done at that time. Patient reports practitioners at [facility] had recommended higher level amputation but patient has continued to refuse that. He was read[facility] 2024 with worsening odor/drainage andredness/pain to the left lower extremity in recent days/weeks. He reports having been taking outpatient Levaquin; prior history MRSA/PSA and ESBL organisms 09/04/24 Dr Marcano. Procedure/CPT?? Codes: RIGHT SPRING CRATER access - ultrasound guided Aortogram with LEFT lower extremity run-off LEFT PT angioplasty (4k709zg Nanocross) LEFT plantar angioplasty (6m611rh Nanocross, 2.8i032ji UltraverseRx) LEFT AT angioplasty (5f354ky Nanocross, 2.4x196yf UltraverseRx) LEFT DP angioplasty (3f331cj Nanocross, 2.0o542ui UltraverseRx) RIGHT SPRING CRATER closure (Angioseal) 09/07/24 Dr Marcano Procedure/CPT?? Codes: RIGHT SPRING CRATER access - ultrasound guided Aortogram with LEFT lower extremity run-off LEFT Pr AVF embolization RIGHT SPRING CRATER closure 09/09/24 moved to ICU overnight with [...] with fusion C3-4; Surgeon: Tyree Tan MD; Location:[facility] OR; Service: Neurosurgery; Laterality: Bilateral; AORTOGRAM N/A [...] femoral access; Surgeon: Jared Marcano MD; Location: [facility] CATH INVASIVE LOCATION; Service: Peripheral Vascular; Laterality: N/A; CORONARY ANGIOPLASTY WITH STENT PLACEMENT stent x 1 INCISION AND DRAINAGE FOOT Left 06/17/2023 Procedure: LEFT FOOT DEBRIDEMENT WOUND VACUUM ASSISTED CLOSURE; Surgeon: Cecil Buenrostro Jr., MD;Location: [facility] OR; Service: Orthopedics; Laterality: Left; INCISION AND DRAINAGE LEG Left 07/25/2023 Procedure: INCISION AND DRAINAGE HEEL, WOUND VAC; Surgeon: Cecil Buenrostro Jr., MD; Location: [facility] OR; Service: Orthopedics; Laterality: Left; INTERVENTIONAL RADIOLOGY PROCEDURE N/A 05/02/2019 Procedure: IVC FILTER PLACEMENT; Surgeon: Pedro Zapien MD; Location: [facility] CATH INVASIVE LOCATION; Service: Interventional Radiology INTERVENTIONAL RADIOLOGY PROCEDURE Left 09/07/2024 Procedure: LEFT peroneal arteriovenous fistula embolization - Right femoral access; Surgeon: Jared Marcano MD; Location: [facility] CATH INVASIVE LOCATION; Service: Cardiovascular; Laterality: Left; Please coordinate with Gautam Patel ([facility]) [phone] who will bring coils LUMBAR DISCECTOMY N/A [...] BID Zakiya Mccormick DO 5 mg at 06/08/254 baclofen (LIORESAL) tablet 10 mg 10 mg Oral Q12H Luz Denson MD 10 mg at 06/08/254 sennosides-docusate (PERICOLACE) 8.6-50 MG per tablet 2 [...] 50 mL IVPB 6 mg/kg (Adjusted) Intravenous S12INpkglhwBirtton Parham MD 100 mL/hr at 06/08/25 0947 550 mg at 06/08/25 0947 dextrose (D50W) (25 g/50 mL) IV injection [...] Bedtime Luz Denson MD 2 Units at 06/08/251750 lamoTRIgine (LaMICtal) tablet 100 mg 100 mg [...] Driven Protocol Not Applicable PRLuz Oh MD Potassium Replacement - Follow Nurse / BPA Driven Protocol Not Applicable Luz Carrero MD [Held by provider] sacubitril-valsartan (ENTRESTO) 24-26 [...] kg over 150 Minutes Intravenous Once 06/02/25 13506/02/25 1341 06/02/25 1338 piperacillin-tazobactam (ZOSYN) 3.375 g [...] sensitive to Merrem per microbiology lab at [facility]. 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 for further care/workup ; readmission May 2025 [...] from the original note were not included. [facility] Medicine Services PROGRESS NOTE Patient Name: Vitaly [...] Date/Time Wound Culture - Swab, Leg, Left [[id number]] (Abnormal) (Susceptibility) Collected: 06/02/25 1104 Lab Status: [...] Urine Culture - Urine, Indwelling Urethral Catheter [[id number]] (Abnormal) (Susceptibility) Collected: 06/02/25 1231 Lab Status: [...] his LLE. Reports he saw ID in [place] a while ago but they said there [...] MD - 06/08/2025 7:52 AM EDT Vitaly Pool 1955 [id number] Evaluating Physician: Britton Flor MD Chief Complaint: [...] excoriation/crusted areas at the toes, hospitalized at [facility] June 04 untilSe2022 and discharged with oral antibiotics for left lower extremity cellulitis; he alsohas nonhealing wounds at his buttocks 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 Ad[facility] 13 2023 diagnosis of sepsis per admission notes, left lower extremity cellulitis with pressure injury at buttocks. 06/15/24 Dr Colón saw and recommended amputation; patient refused ; see his note for detail 06/17/23 Dr buenrostro discussed potential options for heel debridement with patient; MRI no osteomyelitis per radiology; taken to OR PROCEDURE: Left 91719: Debridement of skin and subcutaneous tissue 52192: wound vacuum-assisted closure, wound measuring 2.5 cm [...] 07/25/[address] Buenrostro PROCEDURE: Left 41823: Debridement of skin and subcutaneous tissue 39596: Wound vacuum-assisted closure culture data with MRSA/aneta. [...] possible intervention 01/28/24 Dr. 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 Faust in [place] and has seen Dr Oneal (ID in [place]); he is not a good historian with respect to detail. Reports having had some further surgery to the left foot although he is unable to clarify specific date/procedure. Culture at [facility] August 07, 2024 from left foot wound with ESBL Klebsiella pneumoniae and pseudomonas aeruginosa (microbiology lab there reports the Pseudomonas is sensitive to Merrem). He reports his outpatient practitioners had recommended admission to the hospital for IV antibiotics but patient had refused at that time. He also reports that he was in the emergency room at [facility] mid August, no cultures done at that time. Patient reports practitioners at [facility] had recommended higher level amputation but patient has continued to refuse that. He was readmitted to [facility] on August [facility], 2024 with worsening odor/drainage andredness/pain to the left lower extremity in recent days/weeks. He reports having been taking outpatient Levaquin; prior history MRSA/PSA and ESBL organisms 09/04/24 Dr Marcano. Procedure/CPT?? Codes: RIGHT SPRING CRATER access - ultrasound guided Aortogram with LEFT lower extremity run-off LEFT PT angioplasty ([id number] Nanocross) LEFT plantar angioplasty ([id number] Nanocross, 2.4v144em UltraverseRx) LEFT AT angioplasty (1f468id Nanocross, 2.6p898wg UltraverseRx) LEFT DP angioplasty (5j239if Nanocross, 2.1l568wf UltraverseRx) RIGHT SPRING CRATER closure (Angioseal) 09/07/24 Dr Marcano Procedure/CPT?? Codes: RIGHT SPRING CRATER access - ultrasound guided Aortogram with LEFT lower extremity run-off LEFT Pr AVF embolization RIGHT SPRING CRATER closure 09/09/24 moved to ICU overnight with [...] LEFT; Surgeon: Cecil Buenrostro Jr., MD; Location: [facility] OR; Service: Orthopedics; Laterality: Left; ANTERIOR CERVICAL DISCECTOMY W/ FUSION Bilateral 07/17/2020 Procedure: Cervical discectomy anterior with fusion C3-4; Surgeon: Tyree Tan MD; Location:[facility] OR; Service: Neurosurgery; Laterality: Bilateral; AORTOGRAM N/A [...] femoral access; Surgeon: Jared Marcano MD; Location: [facility] CATH INVASIVE LOCATION; Service: Peripheral Vascular; Laterality: N/A; CORONARY ANGIOPLASTY WITH STENT PLACEMENT stent x 1 INCISION AND DRAINAGE FOOT Left 06/17/2023 Procedure: LEFT FOOT DEBRIDEMENT WOUND VACUUM ASSISTED CLOSURE; Surgeon: Cecil Buenrostro Jr., MD;Location: [facility] OR; Service: Orthopedics; Laterality: Left; INCISION AND DRAINAGE LEG Left 07/25/2023 Procedure: INCISION AND DRAINAGE HEEL, WOUND VAC; Surgeon: Cecil Buenrostro Jr., MD; Location: [facility] OR; Service: Orthopedics; Laterality: Left; INTERVENTIONAL RADIOLOGY PROCEDURE N/A 05/02/2019 Procedure: IVC FILTER PLACEMENT; Surgeon: Pedro Zapien MD; Location: [facility] CATH INVASIVE LOCATION; Service: Interventional Radiology INTERVENTIONAL RADIOLOGY PROCEDURE Left 09/07/2024 Procedure: LEFT peroneal arteriovenous fistula embolization - Right femoral access; Surgeon: Jared Marcano MD; Location: [facility] CATH INVASIVE LOCATION; Service: Cardiovascular; Laterality: Left; Please coordinate with Gautam Patel ([facility]) [phone] who will bring coils LUMBAR DISCECTOMY N/A [...] mg 5 mg Oral BID Zakiya Mccormick, 5 mg at 06/07/25 213 baclofen (LIORESAL) tablet 10 mg 10 mg [...] Meals Zakiya Mccormick, DO 3.125 mg at 06/07/25 192 clopidogrel (PLAVIX) tablet 75 mg 75 mg Oral Daily Luz Denson MD 75 mg at 06/07/25916 DAPTOmycin (CUBICIN) 550 mg in sodium chloride 0.9 % 50 mL IVPB 6 mg/kg (Adjusted) Intravenous O65GFobhrduBritton Parham MD 100 mL/hr at 06/07/25904 550 mg at 06/07/25904 dextrose (D50W) (25 g/50 mL) IV injection 25 g 25 g Intravenous Q15 Min PRN Luz Dneson MD dextrose (GLUTOSE) oral gel 15 g 15 g Oral Q15 Min PRN Luz Denson MD finasteride (PROSCAR) tablet 5 mg 5 mg Oral Daily Zakiya Mccormick Fernandez, DO 5 mg at 06/07/2516 folic acid (FOLVITE) tablet 1 mg 1 mg Oral Daily Luz Denson MD 1 mg at 06/07/25915 [Held by provider] furosemide (LASIX) tablet 40 mg 40 mg Oral Daily Luz Holt MD gabapentin (NEURONTIN) capsule 200 mg 200 mg Oral TID Luz Denson MD 200 mg at06/07/252130 glucagon (GLUCAGEN) injection 1 mg 1 mg Intramuscular Q15 Min PRN Luz Holt MD insulin glargine (LANTUS, SEMGLEE) injection 25 Units 25 Units Subcutaneous Nightly Luz Denson MD 25 Units at 06/07/252131 Insulin Lispro (humaLOG) injection 2-7 Units 2-7 Units Subcutaneous 4x Daily AC & at Bedtime Luz Denson MD 2 Units at 06/07/252131 lamoTRIgine (LaMICtal) tablet 100 mg 100 mg [...] Nightly Luz Denson MD 5 mg at 06/07/25 213 meropenem (MERREM) 500 mg in sodium chloride [...] BID Luz Denson MD 40 mg at06/07/25 2131 Phosphorus Replacement - Follow Nurse / BPA Driven Protocol Not Applicable PRLuz Oh MD Potassium Replacement - Follow Nurse / BPA Driven Protocol Not Applicable Luz Carrero MD sodium chloride 0.9 % flush 10 mL 10 mL Intravenous Q12H Luz Denson MD 10 mL at 06/07/25 213 sodium chloride 0.9 % flush 10 mL [...] sensitive to Merrem per microbiology lab at [facility]. 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 for further care/workup ; readmission May 2025 [...] from the original note were not included. [facility] Medicine Services PROGRESS NOTE Patient Name: Vitaly [...] Date/Time Wound Culture - Swab, Leg, Left [[id number]] (Abnormal) (Susceptibility) Collected: 06/02/25 1104 Lab Status: [...] Urine Culture - Urine, Indwelling Urethral Catheter [[id number]] (Abnormal) (Susceptibility) Collected: 06/02/25 1231 Lab Status: [...] his LLE. Reports he saw ID in [place] a while ago but they said there [...] present. 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 Admitted to [facility] June 13 2023 diagnosis of sepsis per admission notes, left lower extremity cellulitis with pressure injury at buttocks. 06/15/24 Dr Colón saw and recommended amputation; patient refused ; see his note for detail 06/17/23 Dr buenrostro discussed potential options for heel debridement with patient; MRI no osteomyelitis per radiology; taken to OR PROCEDURE: Left 49849: Debridement of skin and subcutaneous tissue 76647: wound vacuum-assisted closure, wound measuring 2.5 cm [...] 07/25/[address] Buenrostro PROCEDURE: Left 96538: Debridement of skin and subcutaneous tissue 51083: Wound vacuum-assisted closure culture data with MRSA/aneta. [...] to left CHIP per vascular team d/w id Procedure/CPT?? Codes: Procedure(s): LLE arteriogram with run-off possible intervention 01/28/24 Dr. 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 Faust in [place] and has seen Dr Oneal (ID in [place]); he is not a good historian with respect to detail. Reports having had some further surgery to the left foot although he is unable to clarify specific date/procedure. Culture at [facility] August 07, 2024 from left foot wound with ESBL Klebsiella pneumoniae and pseudomonas aeruginosa (microbiology lab there reports the Pseudomonas is sensitive to Merrem). He reports his outpatient practitioners had recommended admission to the hospital for IV antibiotics but patient had refused at that time. He also reports that he was in the emergency room at [facility] mid August, no cultures done at that time. Patient reports practitioners at [facility] had recommended higher level amputation but patient has continued to refuse that. He was read[facility] to [facility] on [facility], 2024 with worsening odor/drainage andredness/pain to the left lower extremity in recent days/weeks. He reports having been taking outpatient Levaquin; prior history MRSA/PSA and ESBL organisms 09/04/24 Dr Marcano. Procedure/CPT?? Codes: RIGHT SPRING CRATER access - ultrasound guided Aortogram with LEFT lower extremity run-off LEFT PT angioplasty ([id number] Nanocross) LEFT plantar angioplasty (3b072jt Nanocross, 2.8e140at UltraverseRx) LEFT AT angioplasty (9q069xq Nanocross, 2.3v946fa UltraverseRx) LEFT DP angioplasty (6e757vn Nanocross, 2.3r535sa UltraverseRx) RIGHT SPRING CRATER closure (Angioseal) 09/07/24 Dr Marcano Procedure/CPT?? Codes: RIGHT SPRING CRATER access - ultrasound guided Aortogram with LEFT lower extremity run-off LEFT Pr AVF embolization RIGHT SPRING CRATER closure 09/09/24 moved to ICU overnight with [...] LEFT; Surgeon: Cecil Buenrostro Jr., MD; Location: [facility] OR; Service: Orthopedics; Laterality: Left; ANTERIOR CERVICAL DISCECTOMY W/ FUSION Bilateral 07/17/2020 Procedure: Cervical discectomy anterior with fusion C3-4; Surgeon: Tyree Tan MD; Location:[facility] OR; Service: Neurosurgery; Laterality: Bilateral; AORTOGRAM N/A 01/26/2024 Procedure: ABDOMINAL AORTIC ANGIOGRAM, LLE ANGIOGRAM, LEFT ANTERIOR TIBIAL ATHERECTOMY, LEFT ANTERIOR TIBIAL ANGIOPLASTY; Surgeon: Archie Olvera MD; Location: [facility] HYBRID OR; Service: Vascular; Laterality: N/A; CONTRAST: 50 ML, FT: 2 MIN 54 SEC, DOSE: 66 MGY. BACK SURGERY FOR DISC HERNIATION CARDIAC CATHETERIZATION CARDIAC CATHETERIZATION N/A 09/04/2024 Procedure: Peripheral angiography - Left lower extremity angio - Right femoral access; Surgeon: Jared Marcano MD; Location: [facility] CATH INVASIVE LOCATION; Service: Peripheral Vascular; Laterality: N/A; CORONARY ANGIOPLASTY WITH STENT PLACEMENT stent x 1 INCISION AND DRAINAGE FOOT Left 06/17/2023 Procedure: LEFT FOOT DEBRIDEMENT WOUND VACUUM ASSISTED CLOSURE; Surgeon: Cecil Buenrostro Jr., MD;Location: [facility] OR; Service: Orthopedics; Laterality: Left; INCISION AND DRAINAGE LEG Left 07/25/2023 Procedure: INCISION AND DRAINAGE HEEL, WOUND VAC; Surgeon: Cecil Buenrostro Jr., MD; Location: [facility] OR; Service: Orthopedics; Laterality: Left; INTERVENTIONAL RADIOLOGY PROCEDURE N/A 05/02/2019 Procedure: IVC FILTER PLACEMENT; Surgeon: Pedro Zapien MD; Location: [facility] CATH INVASIVE LOCATION; Service: Interventional Radiology INTERVENTIONAL RADIOLOGY PROCEDURE Left 09/07/2024 Procedure: LEFT peroneal arteriovenous fistula embolization - Right femoral access; Surgeon: Jared Marcano MD; Location: [facility] CATH INVASIVE LOCATION; Service: Cardiovascular; Laterality: Left; Please coordinate with Gautam Patel ([facility]) [phone] who will bring coils LUMBAR DISCECTOMY N/A [...] mg 5 mg Oral BID Zakiya Mccormick, 5 mg at 06/06/25 2220 baclofen (LIORESAL) tablet 10 mg 10 mg Oral Q12H Luz Densno MD 10 mg at 06/06/25 2220 sennosides-docusate (PERICOLACE) 8.6-50 MG per tablet 2 tablet 2 tablet Oral BID PRN Luz Denson MD And polyethylene glycol (MIRALAX) packet 17 g 17 g Oral Daily PRN Luz Denson MD And bisacodyl (DULCOLAX) EC tablet 5 mg 5 mg Oral Daily PRN BuddyLuz Parks MD And bisacodyl (DULCOLAX) suppository 10 mg [...] 50 mL IVPB 6 mg/kg (Adjusted) Intravenous P61HVtha-HejfybAlisa Yan APRN 100 mL/hr at 06/06/25 0906 550 mg at 06/06/25 0906 dextrose (D50W) (25 g/50 mL) IV [...] Luz Denson MD 1 mg at 06/06/25 0905 [Held by provider] furosemide (LASIX) tablet 40 mg 40 mg Oral Daily Luz Holt MD gabapentin (NEURONTIN) capsule 200 mg 200 mg Oral TID Luz Denson MD 200 mg at06/06/25 2220 glucagon (GLUCAGEN) injection 1 mg 1 mg Intramuscular Q15 Min PRN Luz Holt MD insulin glargine (LANTUS, SEMGLEE) injection 25 Units 25 Units Subcutaneous Nightly Luz Denson MD 25 Units at 06/06/25 2220 Insulin Lispro (humaLOG) injection 2-7 Units 2-7 [...] Luz Denson MD 1 tablet at 06/06/25 0905 nitroglycerin (NITROSTAT) SL tablet 0.4 mg 0.4 mg Sublingual Q5 Min PRN Luz Holt MD ondansetron ODT (ZOFRAN-ODT) disintegrating tablet 4 mg 4 mg Oral Q4H PRN Najma Perez PA Or ondansetron (ZOFRAN) injection 4 mg 4 mg Intravenous Q6H PRN Najma Perez PA 4 mg at 06/06/25 0902 oxyCODONE (ROXICODONE) immediate release tablet 5 mg 5 mg Oral Q4H PRN Zakiya Mccormick DO 5 mg at 06/06/25 222 pantoprazole (PROTONIX) EC tablet 40 mg 40 mg Oral BID Luz Denson MD 40 mg at06/06/25 222 Phosphorus Replacement - Follow Nurse / BPA Driven Protocol Not Applicable PRLuz Oh MD Potassium Replacement - Follow Nurse / [...] sensitive to Merrem per microbiology lab at [facility]. 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 for further care/workup ; readmission May 2025 [...] Britton Flor MD 06/07/2025 * Vilma Nj, SAAD - 06/06/2025 4:02 PM EDT Patient Name: Vitaly Pool Date of : 1955 Admission date: 06/02/2025 Reason for Encounter: Pressure Injury Stg 2+ [facility] Clinical Nutrition Assessment Subjective Subjective Information [...] femoral access; Surgeon: Jared Marcano MD; Location: [facility] CATH INVASIVE LOCATION; Service: Peripheral Vascular; Laterality: N/A; CORONARY ANGIOPLASTY WITH STENT PLACEMENT stent x 1 INCISION AND DRAINAGE FOOT Left 06/17/2023 Procedure: LEFT FOOT DEBRIDEMENT WOUND VACUUM ASSISTED CLOSURE; Surgeon: Cecil Buenrostro Jr., MD;Location: [facility] OR; Service: Orthopedics; Laterality: Left; INCISION AND DRAINAGE LEG Left 07/25/2023 Procedure: INCISION AND DRAINAGE HEEL, WOUND VAC; Surgeon: Cecil Buenrostro Jr., MD; Location: [facility] OR; Service: Orthopedics; Laterality: Left; INTERVENTIONAL RADIOLOGY PROCEDURE N/A 05/02/2019 Procedure: IVC FILTER PLACEMENT; Surgeon: Pedro Zapien MD; Location: [facility] CATH INVASIVE LOCATION; Service: Interventional Radiology INTERVENTIONAL RADIOLOGY PROCEDURE Left 09/07/2024 Procedure: LEFT peroneal arteriovenous fistula embolization - Right femoral access; Surgeon: Jared Marcano MD; Location: [facility] CATH INVASIVE LOCATION; Service: Cardiovascular; Laterality: Left; Please coordinate with Gautam Patel ([facility]) [phone] who will bring coils LUMBAR DISCECTOMY N/A 05/03/2019 Procedure: THORACIC LAMINECTOMY T11-12; Surgeon: Tyree Tan MD; Location: [facility]; Service: Neurosurgery Current Problems Admission Diagnosis: [...] Edema Edema: leg, left, foot, left (06/06/25 08) Leg, Left Edema: 2+ (Mild) (06/06/25 08) Foot, Left Edema: 2+ (Mild) (06/06/25 08) Intake & Output (last 3 days) 06/03 0706/04 0706/04 0706/05 0706/05 0706/06 0706/06 0706/07 07 [address] [...] from the original note were not included. [facility] Medicine Services PROGRESS NOTE Patient Name: Vitaly [...] Date/Time Wound Culture - Swab, Leg, Left [[id number]] (Abnormal) (Susceptibility) Collected: 06/02/25 1109 Lab Status: Preliminary result Specimen: Swab from [...] Urine Culture - Urine, Indwelling Urethral Catheter [[id number]] (Abnormal) (Susceptibility) Collected: 06/02/25 1231 Lab Status: [...] his LLE. 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 Ad[facility] June 13 2023 diagnosis of sepsis per admission notes, left lower extremity cellulitis with pressure injury at buttocks. 06/15/24 Dr Colón saw and recommended amputation; patient refused ; see his note for detail 06/17/23 Dr buenrostro discussed potential options for heel debridement with patient; MRI no osteomyelitis per radiology; taken to OR PROCEDURE: Left 85564: Debridement of skin and subcutaneous tissue 40466: wound vacuum-assisted closure, wound measuring 2.5 cm [...] 07/25/[address] Buenrostro PROCEDURE: Left 22608: Debridement of skin and subcutaneous tissue 02352: Wound vacuum-assisted closure culture data with MRSA/aneta. [...] to left CHIP per vascular team d/w id Procedure/CPT?? Codes: Procedure(s): LLE arteriogram with run-off possible intervention 01/28/24 Dr. 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 Faust in [place] and has seen Dr Oneal (ID in [place]); he is not a good historian with respect to detail. Reports having had some further surgery to the left foot although he is unable to clarify specific date/procedure. Culture at [facility] August 07, 2024 from left foot wound with ESBL Klebsiella pneumoniae and pseudomonas aeruginosa (microbiology lab there reports the Pseudomonas is sensitive to Merrem). He reports his outpatient practitioners had recommended admission to the hospital for IV antibiotics but patient had refused at that time. He also reports that he was in the emergency room at [facility] mid August, no cultures done at that time. Patient reports practitioners at [facility] had recommended higher level amputation but patient has continued to refuse that. He was read[facility], 2024 with worsening odor/drainage andredness/pain to the left lower extremity in recent days/weeks. He reports having been taking outpatient Levaquin; prior history MRSA/PSA and ESBL organisms 09/04/24 Dr Marcano. Procedure/CPT?? Codes: RIGHT SPRING CRATER access - ultrasound guided Aortogram with LEFT lower extremity run-off LEFT PT angioplasty ([id number] Nanocross) LEFT plantar angioplasty (2v763jy Nanocross, 2.5e962xx UltraverseRx) LEFT AT angioplasty (2j278lv Nanocross, 2.4p195bb UltraverseRx) LEFT DP angioplasty (0g265ld Nanocross, 2.0d321rg UltraverseRx) RIGHT SPRING CRATER closure (Angioseal) 09/07/24 Dr Marcano Procedure/CPT?? Codes: RIGHT SPRING CRATER access - ultrasound guided Aortogram with LEFT lower extremity run-off LEFT Pr AVF embolization RIGHT SPRING CRATER closure 09/09/24 moved to ICU overnight with [...] fusion C3-4; Surgeon: Tyree Tan MD; Location: [facility] OR; Service: Neurosurgery; Laterality: Bilateral; AORTOGRAM N/A 01/26/2024 Procedure: ABDOMINAL AORTIC ANGIOGRAM, LLE ANGIOGRAM, LEFT ANTERIOR TIBIAL ATHERECTOMY, LEFT ANTERIOR TIBIAL ANGIOPLASTY; Surgeon: Archie Olvera MD; Location: [facility] HYBRID OR; Service: Vascular; Laterality: N/A; CONTRAST: [...] ASSISTED CLOSURE; Surgeon: Cecil Buenrostro Jr., MD;Location: [facility] OR; Service: Orthopedics; Laterality: Left; INCISION AND [...] Laterality: Left; Please coordinate with Gautam Patel ([facility]) [phone] who will bring coils LUMBAR DISCECTOMY N/A [...] BID Zakiya Mccormick DO 5 mg at 06/05/25 2100 baclofen (LIORESAL) tablet 10 mg 10 mg [...] Meals Zakiya Mccormick, DO 3.125 mg at 06/05/25 1743 clopidogrel (PLAVIX) tablet 75 mg 75 mg Oral Daily Luz Denson MD 75 mg at 06/05/25 0908 DAPTOmycin (CUBICIN) 550 mg in sodium chloride 0.9 % 50 mL IVPB 6 mg/kg (Adjusted) Intravenous O99JFiue-JgadjkAlisa Yan APRN 100 mL/hr at 06/05/25 09 550 mg at 06/05/25 09 dextrose (D50W) (25 g/50 mL) IV injection 25 g 25 g Intravenous Q15 Min PRN Luz Denson MD dextrose (GLUTOSE) oral gel 15 g 15 g Oral Q15 Min PRN Luz Denson MD finasteride (PROSCAR) tablet 5 mg 5 mg Oral Daily Zakiya Mccormick, DO 5 mg at 06/05/25 0908 folic [...] Luz Denson MD 25 Units at 06/05/25 2101 Insulin Lispro (humaLOG) injection 2-7 Units 2-7 [...] 0.9 % 50 mL IVPB Ordering Provider: Los-David, Alisa, AQUA AMMONIA OPERATOR 6 mg/kg ?? 94.6 kg (Adjusted) 100 [...] sensitive to Merrem per microbiology lab at [facility]. He has had multiple surgeries and multiple [...] Oneal, his outpatient ID doctor and Dr Fauts his drywall hanger framer for further care/workup ; readmission May 2025 [...] from the original note were not included. [facility] Medicine Services PROGRESS NOTE Patient Name: Vitaly [...] Date/Time Wound Culture - Swab, Leg, Left [[id number]] (Abnormal) (Susceptibility) Collected: 06/02/25 1104 Lab Status: [...] Urine Culture - Urine, Indwelling Urethral Catheter [[id number]] (Abnormal) Collected: 06/02/25 1231 Lab Status: Preliminary [...] abx - Reports he saw ID in [place] a while ago but they said there [...] - 06/05/2025 7:53 AM EDT Vitaly Martinez [facility] 1955 [id number] Evaluating Physician: Britton Flor MD Chief Complaint: [...] excoriation/crusted areas at the toes, hospitalized at [facility] June 04 untilSept2022 and discharged with oral antibiotics for left lower extremity cellulitis; he alsohas nonhealing wounds at his buttocks 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 [facility] 2023 diagnosis of sepsis per admission notes, left lower extremity cellulitis with pressure injury at buttocks. 06/15/24 Dr Colón saw and recommended amputation; patient refused ; see his note for detail 06/17/23 Dr buenrostro discussed potential options for heel debridement with patient; MRI no osteomyelitis per radiology; taken to OR PROCEDURE: Left 81421: Debridement of skin and subcutaneous tissue 91870: wound vacuum-assisted closure, wound measuring 2.5 cm [...] 07/25/[address] Buenrostro PROCEDURE: Left 96204: Debridement of skin and subcutaneous tissue 64448: Wound vacuum-assisted closure culture data with MRSA/aneta. [...] possible intervention 01/28/24 Dr. 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 Faust in [place] and has seen Dr Oneal (ID in [place]); he is not a good historian with respect to detail. Reports having had some further surgery to the left foot although he is unable to clarify specific date/procedure. Culture at [facility] August 07, 2024 from left foot wound with ESBL Klebsiella pneumoniae and pseudomonas aeruginosa (microbiology lab there reports the Pseudomonas is sensitive to Merrem). He reports his outpatient practitioners had recommended admission to the hospital for IV antibiotics but patient had refused at that time. He also reports that he was in the emergency room at [facility] mid August, no cultures done at that time. Patient reports practitioners at [facility] had recommended higher level amputation but patient has continued to refuse that. He was read[facility], [facility]24 with worsening odor/drainage andredness/pain to the left lower extremity in recent days/weeks. He reports having been taking outpatient Levaquin; prior history MRSA/PSA and ESBL organisms 09/04/24 Dr Marcano. Procedure/CPT?? Codes: RIGHT SPRING CRATER access - ultrasound guided Aortogram with LEFT lower extremity run-off LEFT PT angioplasty ([id number] Nanocross) LEFT plantar angioplasty (7o906ka Nanocross, 2.7q054dj UltraverseRx) LEFT AT angioplasty (5h206dr Nanocross, 2.6y879wq UltraverseRx) LEFT DP angioplasty (3w658df Nanocross, 2.7w907wc UltraverseRx) RIGHT SPRING CRATER closure (Angioseal) 09/07/24 Dr Marcano Procedure/CPT?? Codes: RIGHT SPRING CRATER access - ultrasound guided Aortogram with LEFT lower extremity run-off LEFT Pr AVF embolization RIGHT SPRING CRATER closure 09/09/24 moved to ICU overnight with [...] LEFT; Surgeon: Cecil Buenrostro Jr., MD; Location: [facility] OR; Service: Orthopedics; Laterality: Left; ANTERIOR CERVICAL DISCECTOMY W/ FUSION Bilateral 07/17/2020 Procedure: Cervical discectomy anterior with fusion C3-4; Surgeon: Tyree Tan MD; Location:[facility] OR; Service: Neurosurgery; Laterality: Bilateral; AORTOGRAM N/A 01/26/2024 Procedure: ABDOMINAL AORTIC ANGIOGRAM, LLE ANGIOGRAM, LEFT ANTERIOR TIBIAL ATHERECTOMY, LEFT ANTERIOR TIBIAL ANGIOPLASTY; Surgeon: Archie Olvera MD; Location: [facility] HYBRID OR; Service: Vascular; Laterality: N/A; CONTRAST: [...] Laterality: Left; Please coordinate with Gautam Patel ([facility]) [phone] who will bring coils LUMBAR DISCECTOMY N/A [...] Luz Denson MD 650 mg at 06/02/25 162 apixaban (ELIQUIS) tablet 5 mg 5 mg Oral BID Zakiya Mccormick DO 5 mg at 06/04/252043 baclofen (LIORESAL) tablet 10 mg 10 mg Oral Q12H Luz Denson MD 10 mg at 06/04/252043 sennosides-docusate (PERICOLACE) 8.6-50 MG per tablet 2 [...] Meals Zakiya Mccormick, DO 3.125 mg at 06/04/25 1802 clopidogrel (PLAVIX) tablet 75 mg 75 mg Oral Daily Luz Denson MD 75 mg at 06/04/25 0854 DAPTOmycin (CUBICIN) 550 mg in sodium chloride 0.9 % 50 mL IVPB 6 mg/kg (Adjusted) Intravenous V31FIide-NgkxbiAlisa Yan APRN 100 mL/hr at 06/04/25 0835 [...] TID Luz Denson MD 200 mg at06/04/25 2044 glucagon (GLUCAGEN) injection 1 mg 1 mg [...] Luz Denson MD 100 mg at 06/04/25 08 lamoTRIgine (LaMICtal) tablet 250 mg 250 mg [...] Daily Luz Denson MD 1 tablet at 06/04/25834 nitroglycerin (NITROSTAT) SL tablet 0.4 mg 0.4 mg Sublingual Q5 Min PRN Luz Holt MD ondansetron ODT (ZOFRAN-ODT) disintegrating tablet 4 mg 4 mg Oral Q4H PRN Najma Perez PA Or ondansetron (ZOFRAN) injection 4 mg 4 mg Intravenous Q6H PRN Najma Perez PA oxyCODONE (ROXICODONE) immediate release tablet 5 mg 5 mg Oral Q4H PRN Zakiya Mccormick DO 5 mg at 06/05/25411 pantoprazole (PROTONIX) EC tablet 40 mg 40 mg Oral BID Luz Denson MD 40 mg at06/04/25 204 Phosphorus Replacement - Follow Nurse / BPA Driven Protocol Not Applicable PRLuz Oh MD Potassium Replacement - Follow Nurse / BPA Driven Protocol Not Applicable PRLuz Oh MD sodium chloride 0.9 % flush 10 mL 10 mL Intravenous Q12H Luz Denson MD 10 mL at 06/04/25 2044 sodium chloride 0.9 % flush 10 mL [...] Intravenous Every 6 Hours 06/04/25 2100 06/11/25 2059 06/04/25 1329 meropenem (MERREM) 500 mg in [...] NS MBP (CD) Status: Discontinued Ordering Provider: BuddyLuz Parks MD 4.5 g over 4 Hours Intravenous [...] Units Date/Time CT Abdomen Pelvis With Contrast [[id number]] Collected: 06/02/25 121 Updated: 06/02/251224 Narrative: CT ABDOMEN PELVIS W CONTRAST Date [...] MD 06/02/2025 12:22 PM EDT Workstation ID: [id number] XR Chest 1 View [[id number]] Collected: 06/02/25 1043 Updated: 06/02/25 1048 Narrative: XR CHEST 1 VW Date of [...] MD 06/02/2025 10:45 AM EDT Workstation ID: [id number] Impression: --acute left lower leg/foot cellulitis and wound infection, prior culture July 2024 with ESBL Klebsiella pneumoniae and pseudomonas aeruginosa, pseudomonas was sensitive to Merrem per microbiology lab at [facility]. 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 for further care/workup ; readmission May 2025 [...] from the original note were not included. [facility] Medicine Services PROGRESS NOTE Patient Name: Vitaly [...] Date/Time Wound Culture - Swab, Leg, Left [[id number]] (Abnormal) Collected: 06/02/25 1104 Lab Status: Preliminary [...] MD 06/02/2025 12:22 PM EDT Workstation ID: [id number] XR Chest 1 View Result Date: 06/02/2025 [...] MD 06/02/2025 10:45 AM EDT Workstation ID: [id number] Results for orders placed during the hospital [...] abx - Reports he saw ID in [place] a while ago but they said there [...] Support Level Of Support Discussed With: Patient NajmaJOHNATHON Corrigan 06/04/25 Cosigned by Stephanie Moser MD at 06/18/2025 2:23 PM EDT Associated attestation - Stephanie Moser MD - 06/18/2025 2:23 PM EDT I have reviewed this documentation and agree. * Britton Flor MD - 06/04/2025 8:42 AM EDT Vitaly Martinez [facility] 1955 [id number] Evaluating Physician: Britton Flor MD Chief Complaint: [...] excoriation/crusted areas at the toes, hospitalized at [facility] June 04 untilSe2022 and discharged with oral antibiotics for left lower extremity cellulitis; he alsohas nonhealing wounds at his buttocks 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 Admitted to [facility] June 13 2023 diagnosis of sepsis per admission notes, left lower extremity cellulitis with pressure injury at buttocks. 06/15/24 Dr Colón saw and recommended amputation; patient refused ; see his note for detail 06/17/23 Dr buenrostro discussed potential options for heel debridement with patient; MRI no osteomyelitis per radiology; taken to OR PROCEDURE: Left 25926: Debridement of skin and subcutaneous tissue 01571: wound vacuum-assisted closure, wound measuring 2.5 cm [...] 07/25/[address] Buenrostro PROCEDURE: Left 75496: Debridement of skin and subcutaneous tissue 20882: Wound vacuum-assisted closure culture data with MRSA/aneta. [...] office comes to home for care Readmitted 5/4/24; consult by Dr Naveen Griffin ; recent trauma after bumping left second toe on household furniture; subsequent redness and increased pain 01/26/24 Dr Olvera; intervention to left CHIP per vascular team d/w id Procedure/CPT?? Codes: Procedure(s): LLE arteriogram with run-off possible intervention 01/28/24 Dr. Buenrostro PROCEDURE: Left 60332: 2nd lesser toe amputation at the level of the metatarsophalangeal joint 41035-97: 3rd lesser toe amputation at the level of the metatarsophalangeal joint 02/01/24 DIRECT MARKETING REPRESENTATIVE overnight , shaking epsode 02/04/24 overnight events [...] reports being followed by Dr. Faust in [place] and has seen Dr Oneal (ID in [place]); he is not a good historian with respect to detail. Reports having had some further surgery to the left foot although he is unable to clarify specific date/procedure. Culture at [facility] August 07, 2024 from left foot wound with ESBL Klebsiella pneumoniae and pseudomonas aeruginosa (microbiology lab there reports the Pseudomonas is sensitive to Merrem). He reports his outpatient practitioners had recommended admission to the hospital for IV antibiotics but patient had refused at that time. He also reports that he was in the emergency room at [facility] mid August, no cultures done at that time. Patient reports practitioners at [facility] had recommended higher level amputation but patient has continued to refuse that. He was read[facility] on [facility] 2024 with worsening odor/drainage andredness/pain to the left lower extremity in recent days/weeks. He reports having been taking outpatient Levaquin; prior history MRSA/PSA and ESBL organisms 09/04/24 Dr Marcano. Procedure/CPT?? Codes: RIGHT SPRING CRATER access - ultrasound guided Aortogram with LEFT lower extremity run-off LEFT PT angioplasty ([id number] Nanocross) LEFT plantar angioplasty (2d999xl Nanocross, 2.5t346ah UltraverseRx) LEFT AT angioplasty (9j559vv Nanocross, 2.9a025fg UltraverseRx) LEFT DP angioplasty (9g055hm Nanocross, 2.4d470qo UltraverseRx) RIGHT SPRING CRATER closure (Angioseal) 09/07/24 Dr Marcano Procedure/CPT?? Codes: RIGHT SPRING CRATER access - ultrasound guided Aortogram with LEFT lower extremity run-off LEFT Pr AVF embolization RIGHT SPRING CRATER closure 09/09/24 moved to ICU overnight with [...] femoral access; Surgeon: Jared Marcano MD; Location: [facility] CATH INVASIVE LOCATION; Service: Peripheral Vascular; Laterality: N/A; CORONARY ANGIOPLASTY WITH STENT PLACEMENT stent x 1 INCISION AND DRAINAGE FOOT Left 06/17/2023 Procedure: LEFT FOOT DEBRIDEMENT WOUND VACUUM ASSISTED CLOSURE; Surgeon: Cecil Buenrostro Jr., MD;Location: [facility] OR; Service: Orthopedics; Laterality: Left; INCISION AND DRAINAGE LEG Left 07/25/2023 Procedure: INCISION AND DRAINAGE HEEL, WOUND VAC; Surgeon: Cecil Buenrostro Jr., MD; Location: [facility] OR; Service: Orthopedics; Laterality: Left; INTERVENTIONAL RADIOLOGY PROCEDURE N/A 05/02/2019 Procedure: IVC FILTER PLACEMENT; Surgeon: Pedro Zapien MD; Location: [facility] CATH INVASIVE LOCATION; Service: Interventional Radiology INTERVENTIONAL RADIOLOGY PROCEDURE Left 09/07/2024 Procedure: LEFT peroneal arteriovenous fistula embolization - Right femoral access; Surgeon: Jared Marcano MD; Location: [facility] CATH INVASIVE LOCATION; Service: Cardiovascular; Laterality: Left; Please coordinate with Gautam Patel ([facility] [phone] who will bring coils LUMBAR DISCECTOMY N/A 05/03/2019 Procedure: THORACIC LAMINECTOMY T11-12; Surgeon: Tyree Tan MD; Location: [facility] OR; Service: Neurosurgery Pediatric History Patient Parents [...] Q12H Luz Denson MD 10 mg at 06/03/25 210 sennosides-docusate (PERICOLACE) 8.6-50 MG per tablet 2 [...] 50 mL IVPB 6 mg/kg (Adjusted) Intravenous E69VInzj-GxjajtAlisa Yan APRN 100 mL/hr at 06/04/25 0835 550 mg at 06/04/25 0835 dextrose (D50W) (25 g/50 mL) IV injection 25 g 25 g Intravenous Q15 Min PRLuz Oh MD dextrose (GLUTOSE) oral gel 15 g 15 g Oral Q15 Min PRLuz Oh MD finasteride (PROSCAR) tablet 5 mg 5 [...] Nightly Luz Denson MD 25 Units at 06/03/25 2110 Insulin Lispro (humaLOG) injection 2-7 Units 2-7 Units Subcutaneous 4x Daily AC & at Bedtime Luz Denson MD 2 Units at 06/03/25 210 lamoTRIgine (LaMICtal) tablet 100 mg 100 mg Oral Daily Luz Denson MD 100 mg at 06/04/25 0835 lamoTRIgine (LaMICtal) tablet 250 mg 250 mg Oral Nightly Luz Denson MD 250 mgat 06/03/25 210 Magnesium Standard Dose Replacement - Follow Nurse / BPA Driven Protocol Not Applicable PRN Luz Denson MD melatonin tablet 5 mg 5 mg Oral Nightly Luz Denson MD 5 mg at 06/03/25 2107 morphine injection 1 mg 1 mg Intravenous [...] Units Date/Time CT Abdomen Pelvis With Contrast [[id number]] Collected: 06/02/25 1217 Updated: 06/02/25 1225 Narrative: [...] MD 06/02/2025 12:22 PM EDT Workstation ID: [id number] XR Chest 1 View [[id number]] Collected: 06/02/25 104 Updated: 06/02/251047 Narrative: XR CHEST 1 VW [...] MD 06/02/2025 10:45 AM EDT Workstation ID: [id number] Impression: --acute left lower leg/foot cellulitis and wound infection, prior culture July 2024 with ESBL Klebsiella pneumoniae and pseudomonas aeruginosa, pseudomonas was sensitive to Merrem per microbiology lab at [facility]. 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 for further care/workup ; readmission May 2025 [...] from the original note were not included. [facility] Medicine Services PROGRESS NOTE Patient Name: Vitaly [...] Date/Time Wound Culture - Swab, Leg, Left [[id number]] (Abnormal) Collected: 06/02/25 1104 Lab Status: Preliminary result Specimen: Swab from Leg, Left Updated: 06/03/25 0773 Wound Culture Light growth (2+) Gram Negative [...] MD 06/02/2025 12:22 PM EDT Workstation ID: [id number] XR Chest 1 View Result Date: 06/02/2025 [...] MD 06/02/2025 10:45 AM EDT Workstation ID: [id number] Results for orders placed during the hospital [...] Level Of Support Discussed With: Patient Zakiya Mccormick DO 06/03/25 documented in this encounter H&P Notes * Luz Denson MD - 06/02/2025 2:33 PM EDT Images from the original note were not included. [facility] Medicine Services HISTORY AND PHYSICAL Patient Name: [...] getting more erythematous over several weeks. His drywall hanger framer put him on an oral abx last [...] LEFT; Surgeon: Cecil Buenrostro Jr., MD; Location: [facility]; Service: Orthopedics; Laterality: Left; ANTERIOR CERVICAL [...] femoral access; Surgeon: Jared Marcano MD; Location: [facility] CATH INVASIVE LOCATION; Service: Peripheral Vascular; Laterality: N/A; CORONARY ANGIOPLASTY WITH STENT PLACEMENT stent x 1 INCISION AND DRAINAGE FOOT Left 06/17/2023 Procedure: LEFT FOOT DEBRIDEMENT WOUND VACUUM ASSISTED CLOSURE; Surgeon: Cecil Buenrostro Jr., MD;Location: [facility] OR; Service: Orthopedics; Laterality: Left; INCISION AND DRAINAGE LEG Left 07/25/2023 Procedure: INCISION AND DRAINAGE HEEL, WOUND VAC; Surgeon: Cecil Buenrostro Jr., MD; Location: [facility] OR; Service: Orthopedics; Laterality: Left; INTERVENTIONAL RADIOLOGY PROCEDURE N/A 05/02/2019 Procedure: IVC FILTER PLACEMENT; Surgeon: Pedro Zapien MD; Location: [facility] CATH INVASIVE LOCATION; Service: Interventional Radiology INTERVENTIONAL RADIOLOGY PROCEDURE Left 09/07/2024 Procedure: LEFT peroneal arteriovenous fistula embolization - Right femoral access; Surgeon: Jared Marcano MD; Location: [facility] CATH INVASIVE LOCATION; Service: Cardiovascular; Laterality: Left; Please coordinate with Gautam Patel ([facility]) [phone] who will bring coils LUMBAR DISCECTOMY N/A 05/03/2019 Procedure: THORACIC LAMINECTOMY T11-12; Surgeon: Tyree Tan MD; Location: [facility] OR; Service: Neurosurgery Family History: family history [...] to determine due to loaded field Specific [place], UA 1.019 Ketones, UA Negative Blood, UA Large (3+) Leukocytes, UA Large (3+) Nitrite, UA Positive RBC, UA Too Numerous to Count WBC, UA Too Numerous to Count Bacteria, UA 4+ Microbiology Results (last 10 days) Procedure Component Value - Date/Time COVID-19, FLU A/B, RSV PCR 1 HR TAT - Swab, Nasopharynx [[id number]] (Normal) Collected: 06/02/25 1125 Lab Status: Final result Specimen: Swab from Nasopharynx Updated: 06/02/25 1239 COVID19 Not Detected Influenza A PCR Not Detected Influenza B PCR Not Detected RSV, PCR Not Detected Wound Culture - Swab, Leg, Left [[id number]] Collected: 06/02/25 1104 Lab Status: Preliminary result [...] MD 06/02/2025 12:22 PM EDT Workstation ID: [id number] XR Chest 1 View Result Date: 06/02/2025 [...] MD 06/02/2025 10:45 AM EDT Workstation ID: [id number] Results for orders placed during the hospital [...] abx - reports he saw ID in [place] a while ago but they said there was nothing more to do at that time. He follows with podiatry who sent the po abx - pt has most recently grown MRSA and pseudomonas 2023. Dicussed with pharmacy team, will start with linezolid and zosyn - pt has also grown proteus ESBL but this was 2022 - wound cultures penid - Dr. Flor has followed pt in the past, will for ID to consult - WOC consult PVD s/p R BKA, LLE revascularization and toe amputation - followed with Dr. Marcano - continue ASA and plavix - pt adamant he does not [...] included. INFECTIOUS DISEASE CONSULT/INITIAL HOSPITAL VISIT Vitaly Shipmanroverto 1955 [id number] Date of Consult: 06/03/2025 Admission Date: 06/02/2025 [...] LEFT; Surgeon: Cecil Buenrostro Jr., MD; Location: [facility] OR; Service: Orthopedics; Laterality: Left; ANTERIOR CERVICAL DISCECTOMY W/ FUSION Bilateral 07/17/2020 Procedure: Cervical discectomy anterior with fusion C3-4; Surgeon: Tyree Tan MD; Location:[facility] OR; Service: Neurosurgery; Laterality: Bilateral; AORTOGRAM N/A 01/26/2024 Procedure: ABDOMINAL AORTIC ANGIOGRAM, LLE ANGIOGRAM, LEFT ANTERIOR TIBIAL ATHERECTOMY, LEFT ANTERIOR TIBIAL ANGIOPLASTY; Surgeon: Archie Olvera MD; Location: [facility] HYBRID OR; Service: Vascular; Laterality: N/A; CONTRAST: 50 ML, FT: 2 MIN 54 SEC, DOSE: 66 MGY. BACK SURGERY FOR DISC HERNIATION CARDIAC CATHETERIZATION CARDIAC CATHETERIZATION N/A 09/04/2024 Procedure: Peripheral angiography - Left lower extremity angio - Right femoral access; Surgeon: Jared Marcano MD; Location: [facility] CATH INVASIVE LOCATION; Service: Peripheral Vascular; Laterality: N/A; CORONARY ANGIOPLASTY WITH STENT PLACEMENT stent x 1 INCISION AND DRAINAGE FOOT Left 06/17/2023 Procedure: LEFT FOOT DEBRIDEMENT WOUND VACUUM ASSISTED CLOSURE; Surgeon: Cecil Buenrostro Jr., MD;Location: [facility] OR; Service: Orthopedics; Laterality: Left; INCISION AND DRAINAGE LEG Left 07/25/2023 Procedure: INCISION AND DRAINAGE HEEL, WOUND VAC; Surgeon: Cecil Buenrostro Jr., MD; Location: [facility] OR; Service: Orthopedics; Laterality: Left; INTERVENTIONAL RADIOLOGY PROCEDURE N/A 05/02/2019 Procedure: IVC FILTER PLACEMENT; Surgeon: Pedro Zapien MD; Location: [facility] CATH INVASIVE LOCATION; Service: Interventional Radiology INTERVENTIONAL RADIOLOGY PROCEDURE Left 09/07/2024 Procedure: LEFT peroneal arteriovenous fistula embolization - Right femoral access; Surgeon: Jared Marcano MD; Location: [facility] CATH INVASIVE LOCATION; Service: Cardiovascular; Laterality: Left; Please coordinate with Gautam Patel ([facility]) [phone] who will bring coils LUMBAR DISCECTOMY N/A [...] 5 mg, 5 mg, Oral, BID, Zakiya Mccormick DO, 5 mg at 06/03/25 0931 baclofen (LIORESAL) [...] Daily, Luz Denson MD, 75 mg at 06/03/2531 DAPTOmycin (CUBICIN) 550 mg in sodium chloride 0.9 % 50 mL IVPB, 6 mg/kg (Adjusted), Intravenous, Q24H, Alisa Yan APRN, Stopped at 06/03/25 1015 dextrose (D50W) (25 g/50 mL) IV injection 25 g, 25 g, Intravenous, Q15 Min PRN, Luz Denson MD dextrose (GLUTOSE) oral gel 15 g, 15 g, Oral, Q15 Min PRN, Luz Denson MD finasteride (PROSCAR) tablet 5 mg, 5 mg, Oral, Daily, Zakiya Mccormick DO, 5 mg at 931 folic acid (FOLVITE) tablet 1 mg, 1 mg, Oral, Daily, Luz Denson MD, 1 mg at 06/03/25 09 [Held by provider] furosemide (LASIX) tablet 40 mg, 40 mg, Oral, Daily, Luz Holt MD gabapentin (NEURONTIN) capsule 200 mg, 200 mg, Oral, TID, Luz Denson MD, 200 mg at 06/03/25 163 glucagon (GLUCAGEN) injection 1 mg, 1 mg, Intramuscular, Q15 Min PRN, Luz Holt MD insulin glargine (LANTUS, SEMGLEE) injection 25 Units, 25 Units, Subcutaneous, Nightly, Luz Denson MD, 25 Units at 06/02/25 204 Insulin Lispro (humaLOG) injection 2-7 Units, 2-7 Units, Subcutaneous, 4x Daily AC & at Bedtime, Luz Denson MD, 2 Units at 06/03/25 163 lamoTRIgine (LaMICtal) tablet 100 mg, 100 mg, Oral, Daily, SelmaLuz Parks MD, 100mg at 06/03/25 0930 lamoTRIgine (LaMICtal) tablet 250 mg, 250 mg, Oral, Nightly, Luz Denson MD, 250 mg at 06/02/252045 Magnesium Standard Dose Replacement - Follow Nurse [...] mg, 5 mg, Oral, Q4H PRN, Zakiya Mccormick DO, 5 mg at 06/03/25 1637 pantoprazole (PROTONIX) [...] Units Date/Time CT Abdomen Pelvis With Contrast [[id number]] Collected: 06/02/25 1217 Updated: 06/02/25 1225 Narrative: [...] MD 06/02/2025 12:22 PM EDT Workstation ID: [id number] XR Chest 1 View [[id number]] Collected: 06/02/25 1043 Updated: 06/02/25 1048 Narrative: XR CHEST 1 VW Date of [...] MD 06/02/2025 10:45 AM EDT Workstation ID: [id number] PROBLEM LIST: - LLE cellulitis/ chronic foot [...] Fall Risk Recent Flowsheet Documentation Taken 06/11/2025 020 by Arnoldo Reeves RN Safety Promotion/Fall Prevention: [...] Prevent Skin Injury Recent Flowsheet Documentation Taken 06/11/2025199 by Arnoldo Reeves RN Body Position: neutral body alignment Skin Protection: incontinence pads utilized Taken 06/11/2025 by Arnoldo Reeves RN Body Position: position [...] Intervention: Prevent Infection Recent Flowsheet Documentation Taken 06/11/2025199 by Arnoldo Reeves RN Infection Prevention: hand [...] Reeves RN Trust Relationship/Rapport: care explained Taken 06/10/20252199 by Arnoldo Reeves RN Trust Relationship/Rapport: care [...] Safety Promotion/Fall Prevention: assistive device/personal items within [facility] fall prevention program maintained nonskid shoes/slippers when out of bed safety round/check completed Taken 06/09/2025 220 by Joann Byrd RN Safety Promotion/Fall Prevention: assistive device/personal items within [facility] fall prevention program maintained safety round/check completed clutter free environment maintained Taken 06/09/20251999 by Joann Byrd RN Safety Promotion/Fall Prevention: assistive device/personal items within [facility] fall prevention program maintained safety round/check completed [...] environmental surveillance performed rest/sleep promoted Taken 06/09/2025 220 by Joann Byrd RN Infection Prevention: environmental surveillance performed rest/sleep promoted Taken 06/09/20251999 by Joann Byrd RN Infection Prevention: environmental surveillance performed rest/sleep promoted Goal: Optimal Comfort and Wellbeing Outcome: Progressing Intervention: Monitor Pain and Promote Comfort Recent Flowsheet Documentation Taken 06/10/2025 0337 by Joann Byrd RNgrease machine worker Interventions: pain medication given Taken 06/10/2025 0259 by Joann Byrd RNgrease machine worker Interventions: pain medication given Taken 06/09/20252199 by Joann Byrd RNgrease machine worker Interventions: pain medication given Taken 06/09/20252134 by Joann Byrd RNgrease machine worker Interventions: pain medication given Intervention: Provide Person-Centered Care Recent Flowsheet Documentation Taken 06/09/20251999 by Joann Byrd RN Trust Relationship/Rapport: care [...] assistance provided Head of Bed (HOB) Positioning: [facility] elevated Pressure Reduction Devices: pressure-redistributing mattress utilized Skin Protection: incontinence pads utilized silicone border foam - sacrum/coccyx Taken 06/10/2025 0345 by Joann Byrd RN Activity Management: activity encouraged Taken 06/10/2025 0200 by Joann Byrd RN Activity Management: activity encouraged Pressure Reduction Techniques: frequent weight shift encouraged weight shift assistance provided Head of Bed (HOB) Positioning: [facility] elevated Pressure Reduction Devices: pressure-redistributing mattress utilized [...] Taken 06/09/2025 2200 by Joann Byrd RN Activity Management: [...] visitors restricted/screened Taken 06/09/2025 0200 by Staci Mckeon RN Infection Prevention: cohorting [...] assistance provided Head of Bed (HOB) Positioning: [facility] elevated Pressure Reduction Devices: specialty bed utilized Skin Protection: incontinence pads utilized Taken 06/09/2025 0200 by Staci Mckeon RN Activity Management: activity minimized Pressure Reduction Techniques: weight shift assistance provided Head of Bed (HOB) Positioning: [facility] elevated Pressure Reduction Devices: specialty bed utilized [...] off bed Head of Bed (HOB) Positioning: [facility] elevated Pressure Reduction Devices: specialty bed utilized [...] medications reviewed Self-Care Promotion: independence encouraged Taken 06/08/20252199 by Staci Mckeon RN Medication Review/Management: medications reviewed Self-Care Promotion: independence encouraged Taken 06/08/20251999 by Staci Mckeon RN Medication Review/Management: medications reviewed Self-Care Promotion: independence encouraged BADL personal objects within reach Intervention: Promote Injury-Free Environment Recent Flowsheet Documentation Taken 06/09/2025399 by Staci Mckeon RN Safety Promotion/Fall Prevention: [...] organization consistent safety round/check completed Taken 06/09/2025 by Staci Mckeon RN Safety Promotion/Fall Prevention: [...] round/check completed Goal Outcome Evaluation: * Zakiya Crews, PT - 06/07/2025 3:39 PM EDT Goal [...] continues to recommend patient discharge to a residential facility when medically appropriate for discharge. Anticipated Discharge Disposition (PT): residential facility * Kelly Guevara RN - 06/07/2025 5:40 AM EDT Problem: Adult Inpatient Plan of Care Goal: Plan of Care Review Outcome: Progressing Goal: Patient-Specific Goal (Individualized) Outcome: Progressing Goal: Absence of Hospital-Acquired Illness or Injury Outcome: Progressing Intervention: Identify and Manage Fall Risk Recent Flowsheet Documentation Taken 06/07/2025 040 by Kelly Guevara RN Safety Promotion/Fall Prevention: [...] shift encouraged Head of Bed (HOB) Positioning: [facility] elevated Pressure Reduction Devices: pressure-redistributing mattress utilized Skin Protection: incontinence pads utilized protective footwear used silicone border foam - sacrum/coccyx skin sealant/moisture barrier applied Taken 06/07/2025 0200 by Kelly Guevara RN Activity Management: activity minimized Pressure Reduction Techniques: frequent weight shift encouraged Head of Bed (HOB) Positioning: [facility] elevated Pressure Reduction Devices: pressure-redistributing mattress utilized Skin Protection: incontinence pads utilized protective footwear used silicone border foam - sacrum/coccyx skin sealant/moisture barrier applied Taken 06/07/2025 by Kelly Guevara RN Activity Management: activity [...] and Manage Contributors Recent Flowsheet Documentation Taken 06/07/2025 0400 by Kelly Guevara RN Medication Review/Management: medications [...] Promote Injury-Free Environment Recent Flowsheet Documentation Taken 06/07/2025 0400 by [...] round/check completed room organization consistent Taken 06/07/2025 0000 by Kelly Guevara RN Safety Promotion/Fall Prevention: [...] Prevention: environmental surveillance performed rest/sleep promoted Taken 06/05/20252199 by Joann Byrd RN Infection Prevention: environmental surveillance performed rest/sleep promoted Taken 06/05/20251999 by Joann Byrd RN Infection Prevention: environmental surveillance performed rest/sleep promoted Goal: Optimal Comfort and Wellbeing Outcome: Progressing Intervention: Monitor Pain and Promote Comfort Recent Flowsheet Documentation Taken 06/06/2025 0000 by Joann Byrd RNgrease machine worker Interventions: pain medication given Taken 06/05/2025 2357 by Joann Byrd RNgrease machine worker Interventions: pain medication given Taken 06/05/2025 2327 by Joann Byrd RNgrease machine worker Interventions: pain medication given Taken 06/05/20252199 by Joann Byrd RNgrease machine worker Interventions: pain medication given Taken 06/05/20252131 by Joann Byrd RNgrease machine worker Interventions: pain medication given Taken 06/05/20252101 by Joann Byrd RNgrease machine worker Interventions: pain medication given Taken 06/05/20251999 by Joann Byrd RNgrease machine worker Interventions: pain medication given Intervention: Provide Person-Centered [...] silicone border foam - sacrum/coccyx Taken 06/05/2025 220 by Joann yBrd RN Activity Management: activity encouraged Pressure Reduction [...] Safety Promotion/Fall Prevention: assistive device/personal items within [facility] fall prevention program maintained safety round/check completed clutter free environment maintained Taken 06/04/2025 2200 by Joann Byrd RN Safety Promotion/Fall Prevention: assistive device/personal items within [facility] fall prevention program maintained safety round/check completed Taken 06/04/20251999 by Joann Byrd RN Safety Promotion/Fall Prevention: assistive device/personal items within [facility] fall prevention program maintained nonskid shoes/slippers when [...] Prevention: environmental surveillance performed rest/sleep promoted Taken 06/04/20252199 by Joann Byrd RN Infection Prevention: environmental surveillance performed rest/sleep promoted Taken 06/04/20251999 by Joann Byrd RN Infection Prevention: environmental surveillance performed rest/sleep promoted single patient room provided Goal: Optimal Comfort and Wellbeing Outcome: Progressing Intervention: Monitor Pain and Promote Comfort Recent Flowsheet Documentation Taken 06/05/2025 0412 by Joann Byrd RNgrease machine worker Interventions: pain medication given Taken 06/05/2025 0400 by Joann Byrd RNgrease machine worker Interventions: pain medication given Taken 06/04/2025 2304 by Joann Byrd RNgrease machine worker Interventions: pain medication given Taken 06/04/20252199 by Joann Byrd RNgrease machine worker Interventions: pain medication given Taken 06/04/20252109 by Joann Byrd RNgrease machine worker Interventions: pain medication given Taken 06/04/20251999 by Joann Byrd RNgrease machine worker Interventions: pain medication given Intervention: Provide Person-Centered [...] assistance provided Head of Bed (HOB) Positioning: [facility] elevated Pressure Reduction Devices: pressure-redistributing mattress utilized Skin Protection: incontinence pads utilized silicone border foam - sacrum/coccyx Taken 06/05/2025 0200 by Joann Byrd RN Activity Management: activity minimized Pressure Reduction Techniques: frequent weight shift encouraged weight shift assistance provided Head of Bed (HOB) Positioning: [facility] elevated Pressure Reduction Devices: pressure-redistributing mattress utilized Skin Protection: incontinence pads utilized silicone border foam - sacrum/coccyx Taken 06/05/2025 0000 by Joann Byrd RN Activity Management: activity encouraged Pressure Reduction Techniques: frequent weight shift encouraged weight shift assistance provided Head of Bed (HOB) Positioning: [facility] elevated Pressure Reduction Devices: specialty bed utilized Skin Protection: incontinence pads utilized silicone border foam - sacrum/coccyx Taken 06/04/2025 220 by Joann Byrd RN Activity Management: activity encouraged Pressure Reduction Techniques: frequent weight shift encouraged weight shift assistance provided Head of Bed (HOB) Positioning: [facility] elevated Pressure Reduction Devices: specialty bed utilized Skin Protection: incontinence pads utilized silicone border foam - sacrum/coccyx Taken 06/04/20251999 by Joann Byrd RN Activity Management: activity encouraged Pressure Reduction Techniques: frequent weight shift encouraged weight shift assistance provided Head of Bed ([facility]) Positioning: [facility] elevated Pressure Reduction Devices: pressure-redistributing mattress utilized [...] 06/04/20251654 by Ute Person RN Outcome: Progressing 06/04/20251653 by Ute Person RN Outcome: Progressing Goal: Absence of Hospital-Acquired Illness or Injury 06/04/20251654 by Ute Person RN Outcome: Progressing 06/04/20251653 by Ute Person RN Outcome: Progressing Intervention: [...] Recent Flowsheet Documentation Taken 06/04/2025 1600 by tUe Person RN Infection Prevention: environmental surveillance performed equipment surfaces disinfected hand hygiene promoted Taken 06/04/2025 1400 by Ute Person RN Infection Prevention: environmental surveillance performed equipment surfaces disinfected hand hygiene promoted Taken 06/04/2025 1200 by Ute Person RN Infection Prevention: environmental [...] Goal: Readiness for Transition of Care 06/04/2025 1655 by Ute Person RN Outcome: [...] Goal: Absence of Fall and Fall-Related Injury 06/04/20255 by Ute Person RN Outcome: Progressing 06/04/2025 [...] Due to the multiple sites, I used Izard to treat each wound topically. This should provide some barrier protection and allow the underlying tissue to heal. See wound care orders for specific instructions on how to manage these locations moving forward. Summary and Recommendation(s): 1. Refer to wound care instructions in the Orders tab 2. Specialty support surface in place: Earle de la fuente Will order Low Air Loss (CITLALY) Mattress [...] continue to follow. Please re consult if thewound(s) worsens or new issues arise. Javy De La Paz RN, BSN, CCRN, CWOCN Wound, Ostomy and Continence (WOC) Department [facility] * Candis Riggs RN - 06/04/2025 5:50 [...] risk of falls. Anticipated Discharge Disposition (PT): residential facility * Joann Byrd RN - 06/03/2025 [...] of bed safety round/check completed Taken 06/02/2025 2000 by Joann Byrd RN Safety Promotion/Fall Prevention: [...] environmental surveillance performed rest/sleep promoted Taken 06/02/2025 220 by Joann Byrd RN Infection Prevention: environmental surveillance performed rest/sleep promoted Taken 06/02/20251999 by Joann Byrd RN Infection Prevention: environmental surveillance performed rest/sleep promoted Goal: Optimal Comfort and Wellbeing Outcome: Progressing Intervention: Monitor Pain and Promote Comfort Recent Flowsheet Documentation Taken 06/03/2025 0400 by Joann Byrd RNgrease machine worker Interventions: pain medication given Taken 06/03/2025 0200 by Joann Byrd RNgrease machine worker Interventions: pain management plan reviewed with patient/caregiver position adjusted pillow support provided Taken 06/03/2025 0000 by Joann Byrd RNgrease machine worker Interventions: pain medication given Taken 06/02/20252199 by Joann Byrd RNgrease machine worker Interventions: pain medication given Taken 06/02/20251999 by Joann Byrd RNgrease machine worker Interventions: pain medication given pillow support provided [...] Taken 06/02/2025 2200 by Joann Byrd RN Activity Management: [...] femoral access; Surgeon: Jared Marcano MD; Location: [facility] CATH INVASIVE LOCATION; Service: Peripheral Vascular; Laterality: N/A; CORONARY ANGIOPLASTY WITH STENT PLACEMENT stent x 1 INCISION AND DRAINAGE FOOT Left 06/17/2023 Procedure: LEFT FOOT DEBRIDEMENT WOUND VACUUM ASSISTED CLOSURE; Surgeon: Cecil Buenrostro Jr., MD;Location: [facility] OR; Service: Orthopedics; Laterality: Left; INCISION AND DRAINAGE LEG Left 07/25/2023 Procedure: INCISION AND DRAINAGE HEEL, WOUND VAC; Surgeon: Cecil Buenrostro Jr., MD; Location: [facility] OR; Service: Orthopedics; Laterality: Left; INTERVENTIONAL RADIOLOGY PROCEDURE N/A 05/02/2019 Procedure: IVC FILTER PLACEMENT; Surgeon: Pedro Zapein MD; Location: [facility] CATH INVASIVE LOCATION; Service: Interventional Radiology INTERVENTIONAL RADIOLOGY PROCEDURE Left 09/07/2024 Procedure: LEFT peroneal arteriovenous fistula embolization - Right femoral access; Surgeon: Jared Marcano MD; Location: [facility] CATH INVASIVE LOCATION; Service: Cardiovascular; Laterality: Left; Please coordinate with Gautam Patel ([facility]) [phone] who will bring coils LUMBAR DISCECTOMY N/A 05/03/2019 Procedure: THORACIC LAMINECTOMY T11-12; Surgeon: Tyree Tan MD; Location: [facility] OR; Service: Neurosurgery Family History Problem Relation [...] Level of Care: Telemetry [5] Diagnosis: Cellulitis [693872] No follow-up provider specified. Medication List No changes were made to your prescriptions during this visit. Mary Miller MD 06/02/25 1509 documented in this encounter Miscellaneous Notes * Case Management/Social Work - Tra Dill RN - 06/11/2025 2:46 PM EDT Case Management Discharge Note Final Note: Plan to transfer patient home today with [facility]. PCS form for ambulance filled out, sent to ems dept and placed on chart. [facility] to follow for nursing PT and OT. [...] Provider Services Address Phone Fax Patient Preferred [facility] [address] [phone] -- Therapy No services have been selected for the patient. Community Resources No services have been selected for the patient. Community & DME No services have been selected for the patient. Transportation Services Transportation: Ambulance Ambulance: [facility] Ambulance Status: Accepted Final Discharge Disposition Code: 06 - home with home health care * Case Management/Social Work - Rebeka Will - 06/11/2025 9:44 AM EDT Start [facility] Note Home Health Referral Evaluated patient and on Home Care and services available. Patient offered choice of available HHC and agreeable to SN/PT/OT services with [facility]. Isolation Precautions: Contact START PATIENT REGISTRATION INFORMATION Order Information Order Signing Physician: Patricia Varela MD Service Ordered RN?: Yes Service Ordered PT?: Yes Service Ordered OT?: Yes Service Ordered ST?: No Service Ordered SENIOR NET SOFTWARE ENGINEER?: No Service Ordered MARKETING ADMIN?: No Following Physician: Gustavo Mehta MD Following Physician Overseeing Physician: Gustavo Mehat MD (Required for Residents Only) Agreeable to Follow ? Yes Date/Time of Call 06/11/25 09:45 EDT, Spoke with: Care Coordination Same Day SOC?: No Primary Care Physician: Gustavo Mehta MD Primary Care Physician Primary Care Physician Address: [address] [place] [address] Visit Instructions: N/A Service Discharge Location Type: Home Service Facility Name: N/A Service Floor Facility: N/A Service Room No: N/A Demographics Patient Last Name: Corine Patient First Name: Vitaly Language/Communication Barrier: NO Service Address: [address] [place] [address]* Service City: [place] Service State: [place] Service Zip: [address] Service Other Phone Numbers: Telephone Information: Emergency Contact: Extended Emergency Contact Information Primary Emergency Contact: Tra Salazar Mobile Relation: Sister Medical Underwriter needed? No Admission Information Admit Date: 06/02/2025 [...] Name: TRA Teachable Caregiver Last Name: TUNDE Teachmitchel Caregiver Relationship to Patient: Teachable Caregiver Teachable Caregiver Notes: N/A Teachable Caregiver available for Start of Care visit?: Yes Teachable Caregiver agreeable to provide skilled High Tech care per physician's orders?: Yes END PATIENT REGISTRATION INFORMATION Start [facility] Summary Additional Comments: Patient also being followed by [facility]. Patient also has chronic indwelling urinary catheter. END [facility] Summary Discharge Date: Pending Referral Source: [facility] Signed By: Rebeka Will, 06/11/2025, 09:45 EDT Date/Time: 06/11/25 09:45 EDT End P[facility] Note * Case Management/Social Work - Alisa Mendoza RN - 06/08/2025 11:52 AM EDT Case Management Discharge Note Final Note: I spoke with the pt. His goal remains home with [facility] [place]. He is not interested in inpt rehab. 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 pectoris Left leg cellulitis [...] femoral access; Surgeon: Jared Marcano MD; Location: [facility] CATH INVASIVE LOCATION; Service: Peripheral Vascular; Laterality: N/A; CORONARY ANGIOPLASTY WITH STENT PLACEMENT stent x 1 INCISION AND DRAINAGE FOOT Left 06/17/2023 Procedure: LEFT FOOT DEBRIDEMENT WOUND VACUUM ASSISTED CLOSURE; Surgeon: Cecil Buenrostro Jr., MD;Location: [facility] OR; Service: Orthopedics; Laterality: Left; INCISION AND DRAINAGE LEG Left 07/25/2023 Procedure: INCISION AND DRAINAGE HEEL, WOUND VAC; Surgeon: Cecil Buenrostro Jr., MD; Location: [facility] OR; Service: Orthopedics; Laterality: Left; INTERVENTIONAL RADIOLOGY PROCEDURE N/A 05/02/2019 Procedure: IVC FILTER PLACEMENT; Surgeon: Pedro Zapien MD; Location: [facility] CATH INVASIVE LOCATION; Service: Interventional Radiology INTERVENTIONAL RADIOLOGY PROCEDURE Left 09/07/2024 Procedure: LEFT peroneal arteriovenous fistula embolization - Right femoral access; Surgeon: Jared Marcano MD; Location: [facility] CATH INVASIVE LOCATION; Service: Cardiovascular; Laterality: Left; Please coordinate with Gautam Patel ([facility]) [phone] who will bring coils LUMBAR DISCECTOMY N/A 05/03/2019 Procedure: THORACIC LAMINECTOMY T11-12; Surgeon: Tyree Tan MD; Location: [facility]; Service: Neurosurgery General Information Row Name 06/07/25 1614 Physical Therapy Time and Intention Document Type therapy note (daily note) -MB Mode of Treatment individual therapy;physical therapy -MB Row Name 06/07/25 161 General Information Patient Profile Reviewed yes Patient agreeable to therapy session with encouragement, however, reported he only wanted to get to the chair and did not want to try to sit on the edge of the bed. -MB Existing Precautions/Restrictions fall history of R BKA; LLE foot wounds and cellulitis; Ambrose catheter -MB Barriers to Rehab medically complex;previous functional deficit;physical barrier - Row Name 06/07/25 161 Cognition Orientation Status (Cognition) oriented to;person;place with cues for name of hospital with patientinitially reporting he was at - Row Name 06/07/25 161 Safety Issues/Impairments Affecting Functional Mobility Safety Issues Affecting Function (Mobility) awareness of need for assistance;insight into deficits/self-awareness;judgment;safety precaution awareness;safety precautions follow-through/compliance -MB Impairments Affecting Function (Mobility) balance;endurance/activity tolerance;pain;postural/trunk control;range of motion (ROM);sensation/sensory awareness;strength -MB User Llanes (r) = Recorded By, (t) = Taken By, (c) = Cosigned By Initials Name Provider Type Zakiya Keith, PT Physical Therapist Mobility Row Name 06/07/25 161 Bed Mobility Bed Mobility rolling left;rolling right -MB Rolling Left Waller (Bed Mobility) contact guard;1 person assist;verbal cues -MB Rolling Right Waller (Bed Mobility) minimum assist (75% patient effort);1 person assist;verbal cues -MB Assistive Device (Bed Mobility) bed rails -MB Comment, (Bed Mobility) Patient deferred EOB activity. Patient rolled both left and right for placement of repositioning sling in preparation for transfer from bed to chair. -MB Row Name 06/07/251616 Bed-Chair Transfer Bed-Chair Waller (Transfers) dependent (less than 25% patient effort) [...] No documentation. Clinical Impression Row Name 06/07/25 1619 Pain Pretreatment Pain Rating 7/10 -MB Posttreatment Pain Rating 7/10 -MB Pain Location extremity -MB Pain Side/Orientation left;lower -MB Pain Management Interventions nursing notified -MB Response to Pain Interventions activity participation with tolerable pain -MB Row Name 06/07/25 161 Plan of Care Review Plan of Care [...] continues to recommend patient discharge to a residential facility when medically appropriate for discharge. -MB Row Name 06/07/25 1619 Vital Signs Pre [...] Patient Position Sitting -MB Row Name 06/07/25 1619 Positioning and Restraints Pre-Treatment Position in bed [...] Provider Type Zakiya Keith, PT Physical Therapist Outcome Measures Row Name 06/07/251623 [...] Options AM-PAC 6 Clicks Basic Mobility (PT) -MB User Llanes (r) = Recorded By, (t) = Taken By, (c) = Cosigned By Initials Name Provider Type Zakiya Keith PT Physical Therapist Physical Therapy Education Title: PT OT WEBSITE DESIGNER Therapies (In Progress) Topic: Physical Therapy (In [...] Llanes Initials Effective Dates Name Provider Type Prakash DAVIS 02/09/25 - Zakiya Crews PT Physical Therapist [...] continues to recommend patient discharge to a residential facility when medically appropriate for discharge. Time Calculation: PT Charges Row Name 06/07/25 1624 Time Calculation Start Time 1539 -MB PT Received On 06/07/25 -MB Timed Charges 54289 - PT Therapeutic Activity Minutes 34 -MB Total Minutes Timed Charges Total Minutes 34 -MB Total Minutes 34 -MB User Llanes (r) = Recorded By, (t) = Taken By, (c) = Cosigned By Initials Name Provider Type Zakiya Keith, PT Physical Therapist Therapy Charges for Today Code Description Service Date Service Provider Modifiers Qty [id number] HC PT THERAPEUTIC ACT EA 15 MIN 06/07/2025 Zakiya Crews, PT GP 2 PT G-Codes Outcome Measure Options: AM-PAC 6 Clicks Basic Mobility (PT) AM-PAC 6 Clicks Score (PT): 8 PT Discharge Summary Anticipated Discharge Disposition (PT): residential facility aZkiya Crews PT 06/07/2025 * Case Management/Social Work - Alisa Mendoza RN - 06/07/2025 1:52 PM EDT Continued Stay Note [facility] Patient Name: Vitaly Pool Today's Date: 06/07/2025 Admit Date: 06/02/2025 Plan: Home with HH Discharge Plan Row Name 06/07/25 1350 Plan Plan Home with HH Plan Comments Plan to stay in house until Wednesday to finish IV AB TX. Final Discharge Disposition Code 06 - home with home health care Discharge Codes No documentation. Expected Discharge Date and Time Expected Discharge Date Expected Discharge Time Jun 06, 2025 Alisa Mendoza RN * Case Management/Social Work - Rebeka Will - 06/05/2025 10:18 AM EDT Continued Stay Note [facility] Patient Name: Vitaly Pool Today's Date: 06/05/2025 Admit Date: 06/02/2025 Plan: Discharge to [facility] with [facility] for SN/PT/OT. Discharge Plan Row Name 06/05/25 1014 Plan Plan Discharge to home with [facility] for SN/PT/OT. Patient/Family in Agreement with Plan yes Provided Post Acute Provider List? Refused Provided Post Acute Provider Quality & Resource List? Refused Plan Comments [facility] RN following for home health/DME set up. Patient requested to transfer HH services from [facility] stating concerns with continuity of care. Patient chose and is agreeable to [facility] and referral accepted. [facility] following for SN/PT/OT home health services. Agency security representative, Rebeka Will RN notified and aware of anticipated D/C date. Patient denies any new DME needs at this time. Discharge Codes No documentation. Expected Discharge Date and Time Expected Discharge Date Expected Discharge Time Jun 06, 2025 Rebeka Will * Case Management/Social Work - Alisa Mendoza RN - 06/04/2025 10:30 AM EDT Discharge Planning Assessment [facility] Patient Name: Vitaly Pool Today's Date: 06/04/2025 Admit Date: 06/02/2025 Plan: Home with HH Discharge Needs Assessment Row Name 06/04/25 1026 Living Environment People in Home alone Current Living Arrangements home Living Arrangement Comments Lives in a one level home. Has waiver caregivers 2 times a week. Transfers himself to motorized WC. Discharge Needs Assessment Equipment Currently Used at Home wheelchair, motorized;hospital bed Equipment Needed After Discharge none Discharge Coordination/Progress The pt is current with [facility]. He uses [facility] for transport to appointments. States his neighbors help as needed. Has been to several SNFs in the past. Discharge Plan Row Name 06/04/25 1029 Plan Plan Home with HH Patient/Family in Agreement with Plan yes Plan Comments I spoke with the pt. He is not interested in SNF rehab at [place]. He plans home with HH. Will need EMS transport. 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 Left leg cellulitis [...] Laterality: Left; Please coordinate with Gautam Patel ([facility] [phone] who will bring coils LUMBAR DISCECTOMY N/A 05/03/2019 Procedure: THORACIC LAMINECTOMY T11-12; Surgeon: Tyree Tan MD; Location: [facility] OR; Service: Neurosurgery General Information Row Name 06/03/2553 Physical Therapy Time and Intention Document Type [...] alone has caregiver twice a week from 8- and has a couple of neighbors to help -KW Row Name 06/03/25 0953 Home Main Entrance Number of Stairs, Main Entrance none -KW Row Name 06/03/25952 Cognition Orientation Status (Cognition) oriented x 3 -KW Row Name 06/03/25952 Safety Issues/Impairments Affecting Functional Mobility Impairments Affecting Function (Mobility) balance;endurance/activity tolerance;pain;shortness of breath;strength -KW User Llanes (r) = Recorded By, (t) = Taken By, (c) = Cosigned By Initials Name Provider Type KW Ashley Sanchez PT Physical Therapist Mobility Row Name 06/03/2553 Bed Mobility Bed Mobility supine-sit;sit-supine;rolling left;rolling right -KW Rolling Left Waller (Bed Mobility) minimum assist (75% patient effort) -KW Rolling Right Waller (Bed Mobility) minimum assist (75% patient effort) -KW Supine-Sit Waller (Bed Mobility) verbal cues;moderate assist (50% patient effort) -KW Sit-Supine Waller (Bed Mobility) verbal cues;moderate assist (50% patient effort) -KW Assistive Device (Bed Mobility) bed rails;head of bed elevated -KW Row Name 06/03/25952 Sit-Stand Transfer Sit-Stand Waller (Transfers) verbal cues -KW User Llanes (r) [...] to right;sit to supine;supine to sit -KW Waller Level/Cues Needed (Bed Mobility Goal 1, PT) modified independence -KW Time Frame (Bed Mobility Goal 1, PT) 10 days -KW Row Name 06/03/25952 Transfer Goal 1 (PT) Activity/Assistive Device (Transfer Goal 1, PT) gsi-gu-bvwrb/geqyq-oy-cws;wheelchair transfer -KW Waller Level/Cues Needed (Transfer Goal 1, PT) minimum assist (75% or more patient effort) -KW Time Frame (Transfer Goal 1, PT) 10 days -KW User Llanes (r) = Recorded By, (t) = Taken By, (c) = Cosigned By Initials Name Provider Type Ashley Manzanares PT Physical Therapist Clinical Impression Row Name 06/03/2553 Pain Pretreatment Pain Rating 7/10 -KW Pain Location extremity -KW Pain Side/Orientation left;lower -KW Row Name 06/03/2553 Plan of Care Review Plan of Care [...] andreduce risk of falls. -KW Row Name 06/03/2553 Therapy Assessment/Plan (PT) Patient/Family Therapy Goals Statement (PT) to return to baseline -KW Criteria for Skilled Interventions Met (PT) yes;skilled treatment is necessary -KW Therapy Frequency (PT) daily -KW Predicted Duration of Therapy Intervention (PT) 10 days -KW Row Name 06/03/2553 Vital Signs Pre Systolic BP Rehab 126 -KW Pre Treatment Diastolic BP 77 -KW Pretreatment Heart Rate (beats/min) 81 -KW Pre SpO2 (%) 95 -KW Row Name 06/03/2553 Positioning and Restraints Pre-Treatment Position in bed -KW Post Treatment Position bed -KW In Bed supine;call light within reach;encouraged to call for assist;exit alarm on -KW User Llanes (r) = Recorded By, (t) = Taken By, (c) = Cosigned By Initials Name Provider Type Ashley Manzanares, MARY Physical Therapist Outcome Measures Row Name 06/03/25 1200 06/03/2553 How much help from another person do [...] Nurse Physical Therapy Education Title: PT OT WEBSITE DESIGNER Therapies (In Progress) Topic: Physical Therapy (Not [...] Re-Cert Due Date 06/13/25 -KW Timed Charges 26194 - PT Therapeutic Activity Minutes 13 -KW Untimed Charges PT Eval/Re-eval Minutes 50 -KW Total Minutes Timed Charges Total Minutes 13 -KW Untimed Charges Total Minutes 50 -KW Total Minutes 63 -KW User Llanes (r) = Recorded By, (t) = Taken By, (c) = Cosigned By Initials Name Provider Type Ashley Manzanares, PT Physical Therapist Therapy Charges for Today Code Description Service Date Service Provider Modifiers Qty [id number] HC PT THERAPEUTIC ACT EA 15 MIN 06/03/2025 Ashley Sanchez, PT GP 1 [id number] HC PT EVAL MOD COMPLEXITY 4 06/03/2025 Ashley Sanchez PT GP 1 PT G-Codes Outcome Measure Options: AM-PAC 6 Clicks Basic Mobility (PT) AM-PAC 6 Clicks Score (PT): 7 PT Discharge Summary Anticipated Discharge Disposition (PT): residential facility Ashley Sanchez PT 06/03/2025 documented in [...] CULTURE STAT 06/02/2025 11:37 AM EDT COVID-19/FLUA&B/RSV, SUPPLY CONTROLLER SWAB IN TRANSPORT MEDIA 1 HR TAT [...] - 130 mg/dL 06/11/2025 4:38 PM EDT [facility] Comment:Serial Number: [id number]: [id number] Blood 06/11/2025 11:2 5 AM EDT 06/11/2025 4:38 PM EDT Patricia Varela MD POINT OF CARE TEST ORDER SEB Final Result [facility]
[address] [place] [address], * POC Glucose 4x Daily Before Meals & at Bedtime (06/11/2025 7:16 AM EDT) Glucose 97 70 - 130 mg/dL 06/11/2025 7:18 AM EDT [facility] Comment:Serial Number: [id number]: [id number] Blood 06/11/2025 7:16 AM EDT 06/11/2025 7:18 AM EDT Luz Denson MD POINT OF CARE TEST ORDERABLES Final Result Performing Organization Address [facility] Co de Phone Number [facility]
[address] [place] [address], [place] [phone] * (ABNORMAL) POC Glucose Once (06/10/2025 8:14 PM EDT) Glucose 168(H) 70 - 130 mg/dL 06/10/2025 8:18 PM EDT [facility] Comment:Serial Number: [id number]: [id number] Blood 06/10/2025 8:14 PM EDT 06/10/2025 8:18 PM EDT Patricia Varela MD POINT OF CARE TEST ORDER SEB Final Result Performing Organization Address [facility] de Phone Number [facility]
[address] [place] [address], [place] [phone] * Telemetry Scan (06/10/2025 6:49 PM EDT) [facility] ECG ORDERABLES Final Result * POC Glucose Once (06/10/2025 4:31 PM EDT) Glucose 120 70 - 130 mg/dL 06/10/2025 4:35 PM EDT [facility] Comment:Serial Number: [id number]: [id number] Blood 06/10/2025 4:31 PM EDT 06/10/2025 4:35 PM EDT Patricia Vaerla MD POINT OF CARE TEST ORDER SEB Final Result Performing Organization Address City/[facility]/ZIP Co de Phone Number [facility]
[address] [place] [address], * (ABNORMAL) POC Glucose 4x Daily Before Meals & at Bedtime (06/10/2025 11:43 AM EDT) Glucose 171(H) 70 - 130 mg/dL 06/10/2025 11:45 AM EDT [facility] Comment:Serial Number: [id number]: [id number] Blood 06/10/2025 11:4 3 AM EDT 06/10/2025 11:45 AM EDT Luz Denson MD POINT OF CARE TEST ORDERABLES Final Result Performing Organization Address City/[facility]/ZIP Co de Phone Number [facility]
[address] [place] [address], * POC Glucose Once (06/10/2025 7:53 AM EDT) Glucose 111 70 - 130 mg/dL 06/10/2025 7:55 AM EDT [facility] Comment:Serial Number: [id number]: [id number] Blood 06/10/2025 7:53 AM EDT 06/10/2025 7:55 AM EDT Patricia Varela MD POINT OF CARE TEST ORDER SEB Final Result [facility]
[address] [place] [address], * Telemetry Scan (06/10/2025 7:27 AM EDT) [facility] ORDER[facility] Final Result * (ABNORMAL) CBC Auto Differential (06/10/2025 6:15 AM EDT) [facility] WBC 9.63 3.40 - 10.80 10*3/mm3 06/10/2025 7:11 AM EDT [facility] RBC 4.15 4.14 - 5.80 10*6/mm3 06/10/2025 7:11 AM EDT [facility] Hemoglobin 9.8(L) 13.0 - 17.7 g/dL 06/10/2025 7:11 AM EDT [facility] Hematocrit 31.5(L) 37.5 - 51.0 % 06/10/2025 7:11 AM EDT [facility] MCV 75.9(L) 79.0 - 97.0 fL 06/10/2025 7:11 AM EDT [facility] MCH 23.6(L) 26.6 - 33.0 pg 06/10/2025 7:11 AM EDT [facility] MCHC 31.1(L) 31.5 - 35.7 g/dL 06/10/2025 7:11 AM EDPSYCHIATRIC LABORATORY RDW 17.2(H) 12.3 - 15.4 % 06/10/2025 7:11 AM [facility] RDW-SD 46.5 37.0 - 54.0 fl 06/10/2025 7:11 AM EDPSYCHIATRIC LABORATORY MPV 9.4 6.0 - 12.0 fL 06/10/2025 7:11 AM EDT [facility] Platelets 311 140 - 450 10*3/mm3 06/10/2025 7:11 AM EDT [facility] Neutrophil % 71.5 42.7 - 76.0 % 06/10/2025 7:11 AM EDT [facility] Lymphocyte % 13.8(L) 19.6 - 45.3 % 06/10/2025 7:11 AM EDT [facility] Monocyte % 8.0 5.0 - 12.0 % 06/10/2025 7:11 AM EDT [facility] Eosinophil % 5.6 0.3 - 6.2 % 06/10/2025 7:11 AM EDT [facility] Basophil % 0.6 0.0 - 1.5 % 06/10/2025 7:11 AM EDT [facility] Immature Grans % 0.5 0.0 - 0.5 % 06/10/2025 7:11 AM EDT [facility] Neutrophils, Absolute 6.88 1.70 - 7.00 10*3/mm3 06/10/2025 7:11 AM EDT [facility] Lymphocytes, Absolute 1.33 0.70 - 3.10 10*3/mm3 06/10/2025 7:11 AM EDT [facility] Monocytes, Absolute 0.77 0.10 - 0.90 10*3/mm3 06/10/2025 7:11 AM EDT [facility] Eosinophils, Absolute 0.54(H) 0.00 - 0.40 10*3/mm3 06/10/2025 7:11 AM EDT [facility] Basophils, Absolute 0.06 0.00 - 0.20 10*3/mm3 06/10/2025 7:11 AM EDT [facility] Immature Grans, Absolute 0.05 0.00 - 0.05 10*3/mm3 06/10/2025 7:11 AM EDT [facility] nRBC 0.0 0.0 - 0.2 /100 WBC 06/10/2025 7:11 AM EDT [facility] Blood Venipuncture / Unknown 06/10/2025 6:15 AM EDT 06/10/2025 6:57 AM EDT us Patricia Varela MD LAB BLOOD ORDERABLES Fin al Result [facility]
[address] [place] [address], * (ABNORMAL) Basic Metabolic Panel (06/10/2025 6:15 AM EDT) [facility] Glucose 125(H) 65 - 99 mg/dL 06/10/2025 7:22 AM [facility] BUN 17.3 8.0 - 23.0 mg/dL 06/10/2025 7:22 AM [facility] Creatinine 0.90 0.76 - 1.27 mg/dL 06/10/2025 7:22 AM [facility] Sodium 134(L) 136 - 145 mmol/L 06/10/2025 7:22 AM [facility] Potassium 4.9 3.5 - 5.2 mmol/L 06/10/2025 7:22 AM [facility] Chloride 105 98 - 107 mmol/L 06/10/2025 7:22 AM [facility] CO2 21.2(L) 22.0 - 29.0 mmol/L 06/10/2025 7:22 AM [facility] Calcium 8.7 8.6 - 10.5 mg/dL 06/10/2025 7:22 AM [facility] BUN/Creatinine Ratio 19.2 7.0 - 25.0 06/10/2025 7:22 AM [facility] Anion Gap 7.8 5.0 - 15.0 mmol/L 06/10/2025 7:22 AM [facility] eGFR 91.3 >60.0 mL/min/1.7 3 06/10/2025 7:22 AM [facility] Blood Venipuncture / Unknown 06/10/2025 6:15 AM EDT 06/10/2025 6:56 AM [facility] - 06/10/2025 7:22 AM EDT [...] ORDERABLES Fin al Result Performing Organization Address [facility] Co de Phone Number [facility]
[address] [place] [address], * (ABNORMAL) POC Glucose Once (06/09/2025 8:06 PM EDT) Glucose 155(H) 70 - 130 mg/dL 06/09/2025 8:08 PM EDT [facility] Comment:Serial Number: [id number]: [id number] Blood 06/09/2025 8:06 PM EDT 06/09/2025 8:08 PM EDT Patricia Varela MD POINT OF CARE TEST ORDER SEB Final Result Performing Organization Address [facility] de Phone Number [facility]
[address] [place] [address], * Telemetry Scan (06/09/2025 8:01 PM EDT) [facility] ECG ORDERABLES Final Result * (ABNORMAL) POC Glucose Once (06/09/2025 4:54 PM EDT) Glucose 167(H) 70 - 130 mg/dL 06/09/2025 5:12 PM EDT [facility] Comment:Serial Number: [id number]: [id number] Blood 06/09/2025 4:54 PM EDT 06/09/2025 5:12 PM EDT Patricia Varela MD POINT OF CARE TEST ORDER SEB Final Result Performing Organization Address [facility] Co de Phone Number [facility]
[address] [place] [address], * POC Glucose 4x Daily Before Meals & at Bedtime (06/09/2025 11:51 AM EDT) Glucose 127 70 - 130 mg/dL 06/09/2025 11:54 AM EDT [facility] Comment:Serial Number: [id number]: [id number] Blood 06/09/2025 11:5 1 AM EDT 06/09/2025 11:54 AM EDT Luz Denson MD POINT OF CARE TEST ORDERABLES Final Result Performing Organization Address [facility] Co de Phone Number [facility]
[address] [place] [address], * (ABNORMAL) POC Glucose 4x Daily Before Meals & at Bedtime (06/09/2025 8:01 AM EDT) Glucose 132(H) 70 - 130 mg/dL 06/09/2025 8:05 AM EDT [facility] Comment:Serial Number: [id number]: [id number] Blood 06/09/2025 8:01 AM EDT 06/09/2025 8:05 AM EDT Luz Denson MD POINT OF CARE TEST ORDERABLES Final Result Performing Organization Address City/[facility]/ZIP Co de Phone Number [facility]
[address] [place] [address], * (ABNORMAL) CBC Auto Differential (06/09/2025 4:37 AM EDT) WBC 8.12 3.40 - 10.80 10*3/mm3 06/09/2025 5:47 AM EDT [facility] RBC 3.83(L) 4.14 - 5.80 10*6/mm3 06/09/2025 5:47 AM EDT [facility] Hemoglobin 9.0(L) 13.0 - 17.7 g/dL 06/09/2025 5:47 AM EDT [facility] Hematocrit 28.8(L) 37.5 - 51.0 % 06/09/2025 5:47 AM EDT [facility] MCV 75.2(L) 79.0 - 97.0 fL 06/09/2025 5:47 AM EDT [facility] MCH 23.5(L) 26.6 - 33.0 pg 06/09/2025 5:47 AM EDT [facility] MCHC 31.3(L) 31.5 - 35.7 g/dL 06/09/2025 5:47 AM EDPSYCHIATRIC LABORATORY RDW 17.2(H) 12.3 - 15.4 % 06/09/2025 5:47 AM EDPSYCHIATRIC LABORATORY RDW-SD 46.4 37.0 - 54.0 fl 06/09/2025 5:47 AM [facility] MPV 9.5 6.0 - 12.0 fL 06/09/2025 5:47 AM [facility] Platelets 277 140 - 450 10*3/mm3 06/09/2025 5:47 AM EDPSYCHIATRIC LABORATORY Neutrophil % 61.5 42.7 - 76.0 % 06/09/2025 5:47 AM EDT [facility] Lymphocyte % 20.9 19.6 - 45.3 % 06/09/2025 5:47 AM EDT [facility] Monocyte % 10.0 5.0 - 12.0 % 06/09/2025 5:47 AM EDT [facility] Eosinophil % 6.3(H) 0.3 - 6.2 % 06/09/2025 5:47 AM EDT [facility] Basophil % 0.6 0.0 - 1.5 % 06/09/2025 5:47 AM EDT [facility] Immature Grans % 0.7(H) 0.0 - 0.5 % 06/09/2025 5:47 AM EDT [facility] Neutrophils, Absolute 4.99 1.70 - 7.00 10*3/mm3 06/09/2025 5:47 AM EDT [facility] Lymphocytes, Absolute 1.70 0.70 - 3.10 10*3/mm3 06/09/2025 5:47 AM EDT [facility] Monocytes, Absolute 0.81 0.10 - 0.90 10*3/mm3 06/09/2025 5:47 AM EDT [facility] Eosinophils, Absolute 0.51(H) 0.00 - 0.40 10*3/mm3 06/09/2025 5:47 AM EDT [facility] Basophils, Absolute 0.05 0.00 - 0.20 10*3/mm3 06/09/2025 5:47 AM EDT [facility] Immature Grans, Absolute 0.06(H) 0.00 - 0.05 10*3/mm3 06/09/2025 5:47 AM EDT [facility] nRBC 0.0 0.0 - 0.2 /100 WBC 06/09/2025 5:47 AM EDT [facility] Blood Venipuncture / Unknown 06/09/2025 4:37 AM EDT 06/09/2025 5:30 AM EDT us Patricia Varela MD LAB BLOOD ORDERABLES Fin al Result [facility]
[address] [place] [address], * (ABNORMAL) Basic Metabolic Panel (06/09/2025 4:37 AM EDT) Glucose 140(H) 65 - 99 mg/dL 06/09/2025 6:12 AM EDT [facility] BUN 17.9 8.0 - 23.0 mg/dL 06/09/2025 6:12 AM EDT [facility] Creatinine 1.00 0.76 - 1.27 mg/dL 06/09/2025 6:12 AM EDT [facility] Sodium 137 136 - 145 mmol/L 06/09/2025 6:12 AM EDT [facility] Potassium 4.4 3.5 - 5.2 mmol/L 06/09/2025 6:12 AM EDT [facility] Chloride 106 98 - 107 mmol/L 06/09/2025 6:12 AM EDT [facility] CO2 21.6(L) 22.0 - 29.0 mmol/L 06/09/2025 6:12 AM EDT [facility] Calcium 8.6 8.6 - 10.5 mg/dL 06/09/2025 6:12 AM EDT [facility] BUN/Creatinine Ratio 17.9 7.0 - 25.0 06/09/2025 6:12 AM EDT [facility] Anion Gap 9.4 5.0 - 15.0 mmol/L 06/09/2025 6:12 AM T [facility] eGFR 80.5 >60.0 mL/min/1.7 3 06/09/2025 6:12 AM [facility] Blood Venipuncture / Unknown 06/09/2025 4:37 AM EDT 06/09/2025 5:30 AM EDT [facility] - 06/09/2025 6:12 AM EDT GFR [...] not include race as a factor us Patricia Varela MD LAB BLOOD ORDERABLES Fin al Result Performing Organization Address [facility]/ZIP Co de Phone Number [facility]
[address] [place] [address], * POC Glucose Once (06/08/2025 8:47 PM EDT) Glucose 130 70 - 130 mg/dL 06/08/2025 8:49 PM EDT [facility] Comment:Serial Number: [id number]: [id number] Blood 06/08/2025 8:47 PM EDT 06/08/2025 8:49 PM EDT Patricia Varela MD POINT OF CARE TEST ORDER SEB Final Result Performing Organization Address [facility] Co de Phone Number [facility]
[address] [place] [address], * (ABNORMAL) POC Glucose Once (06/08/2025 4:25 PM EDT) Glucose 163(H) 70 - 130 mg/dL 06/08/2025 4:27 PM EDT [facility] Comment:Serial Number: [id number]: [id number] Blood 06/08/2025 4:25 PM EDT 06/08/2025 4:27 PM EDT Patricia Varela MD POINT OF CARE TEST ORDER SEB Final Result Performing Organization Address City/[facility]/ZIP Co de Phone Number [facility]
[address] [place] [address], * POC Glucose Once (06/08/2025 11:17 AM EDT) Glucose 100 70 - 130 mg/dL 06/08/2025 11:19 AM EDT [facility] Comment:Serial Number: [id number]: [id number] Blood 06/08/2025 11:1 7 AM EDT 06/08/2025 11:19 AM EDT Patricia Varela MD POINT OF CARE TEST ORDER SEB Final Result Performing Organization Address [facility] de Phone Number [facility]
[address] [place] [address], * POC Glucose 4x Daily Before Meals & at Bedtime (06/08/2025 7:31 AM EDT) Glucose 100 70 - 130 mg/dL 06/08/2025 7:37 AM EDT [facility] Comment:Serial Number: [id number]: [id number] Blood 06/08/2025 7:31 AM EDT 06/08/2025 7:37 AM EDT Luz Denson MD POINT OF CARE TEST ORDERABLES Final Result Performing Organization Address [facility] Co de Phone Number [facility]
[address] [place] [address], * Telemetry Scan (06/08/2025 3:25 AM EDT) [facility] ECG ORDERABLES Final Result * (ABNORMAL) POC Glucose Once (06/07/2025 8:29 PM EDT) Glucose 161(H) 70 - 130 mg/dL 06/07/2025 8:32 PM EDT [facility] Comment:Serial Number: [id number]: [id number] Blood 06/07/2025 8:29 PM EDT 06/07/2025 8:32 PM EDT Patricia Varela MD POINT OF CARE TEST ORDER SEB Final Result Performing Organization Address [facility] Co de Phone Number [facility]
[address] [place] [address], * (ABNORMAL) POC Glucose Once (06/07/2025 4:19 PM EDT) Glucose 144(H) 70 - 130 mg/dL 06/07/2025 4:25 PM EDT [facility] Comment:Serial Number: [id number]: [id number] Blood 06/07/2025 4:19 PM EDT 06/07/2025 4:25 PM EDT us Patricia Varela MD POINT OF CARE TEST ORDER SEB Final Result Performing Organization Address [facility] Co de Phone Number [facility]
[address] [place] [address], * POC Glucose 4x Daily Before Meals & at Bedtime (06/07/2025 11:00 AM EDT) Glucose 119 70 - 130 mg/dL 06/07/2025 11:26 AM EDT [facility] Comment:Serial Number: [id number]: [id number] Blood 06/07/2025 11:0 0 AM EDT 06/07/2025 11:26 AM EDT us Luz Denson MD POINT OF CARE TEST ORDERABLES Final Result Performing Organization Address [facility] Co de Phone Number [facility]
[address] [place] [address], * POC Glucose 4x Daily Before Meals & at Bedtime (06/07/2025 7:17 AM EDT) Glucose 106 70 - 130 mg/dL 06/07/2025 7:19 AM EDT [facility] Comment:Serial Number: [id number]: [id number] Blood 06/07/2025 7:17 AM EDT 06/07/2025 7:19 AM EDT Luz Denson MD POINT OF CARE TEST ORDERABLES Final Result Performing Organization Address City/[facility]/ZIP Co de Phone Number [facility]
[address] [place] [address], * (ABNORMAL) POC Glucose Once (06/06/2025 9:06 PM EDT) Glucose 132(H) 70 - 130 mg/dL 06/06/2025 9:16 PM EDT [facility] Comment:Serial Number: [id number]: [id number] Blood 06/06/2025 9:06 PM EDT 06/06/2025 9:16 PM EDT Alondra Lanza MD POINT OF CARE TEST ORDE RABLES Final Result Performing Organization Address City/[facility]/ZIP Co de Phone Number [facility]
[address] [place] [address], * Telemetry Scan (06/06/2025 8:08 PM EDT) [facility] Final Result * (ABNORMAL) POC Glucose Once (06/06/2025 4:25 PM EDT) Glucose 131(H) 70 - 130 mg/dL 06/06/2025 4:29 PM EDT [facility] Comment:Serial Number: [id number]: [id number] Blood 06/06/2025 4:25 PM EDT 06/06/2025 4:29 PM EDT Alondra Lanza MD POINT OF CARE TEST LEVI COHEN Final Result Performing Organization Address City/[facility] Co de Phone Number [facility]
[address] [place] [address], * (ABNORMAL) POC Glucose 4x Daily Before Meals & at Bedtime (06/06/2025 11:01 AM EDT) Glucose 134(H) 70 - 130 mg/dL 06/06/2025 11:19 AM EDT [facility] Comment:Serial Number: [id number]: [id number] Blood 06/06/2025 11:0 1 AM EDT 06/06/2025 11:19 AM EDT Luz Denson MD POINT OF CARE TEST ORDERABLES Final Result Performing Organization Address [facility] Co de Phone Number [facility]
[address] [place] [address], * POC Glucose Once (06/06/2025 7:43 AM EDT) Glucose 119 70 - 130 mg/dL 06/06/2025 8:42 AM EDT [facility] Comment:Serial Number: [id number]: [id number] Blood 06/06/2025 7:43 AM EDT 06/06/2025 8:42 AM EDT Alondra Lanza MD POINT OF CARE TEST LEVI COHEN Final Result Performing Organization Address [facility] Co de Phone Number [facility]
[address] [place] [address], * Telemetry Scan (06/05/2025 8:27 PM EDT) [facility] ECG ORDERABLES Final Result * (ABNORMAL) POC Glucose Once (06/05/2025 8:07 PM EDT) Glucose 146(H) 70 - 130 mg/dL 06/05/2025 8:14 PM EDT [facility] Comment:Serial Number: [id number]: [id number] Blood 06/05/2025 8:07 PM EDT 06/05/2025 8:14 PM EDT Zakiya Mccormick DO POINT OF CARE TEST ORD ERABLES Final Result Performing Organization Address City/[facility]/ZIP Co de Phone Number [facility]
[address] [place] [address], * Telemetry Scan (06/05/2025 6:40 PM EDT) [facility] ECG ORDERABLES Final Result * (ABNORMAL) POC Glucose Once (06/05/2025 4:39 PM EDT) Glucose 193(H) 70 - 130 mg/dL 06/05/2025 4:42 PM EDT [facility] Comment:Serial Number: [id number]: [id number] Blood 06/05/2025 4:39 PM EDT 06/05/2025 4:42 PM EDT Zakiya Mccormick DO POINT OF CARE TEST ORD ERABLES Final Result [facility]
[address] [place] [address], * (ABNORMAL) POC Glucose 4x Daily Before Meals & at Bedtime (06/05/2025 11:02 AM EDT) Glucose 136(H) 70 - 130 mg/dL 06/05/2025 11:04 AM EDT [facility] Comment:Serial Number: [id number]: [id number] Blood 06/05/2025 11:0 2 AM EDT 06/05/2025 11:04 AM EDT Luz Denson MD POINT OF CARE TEST ORDERABLES Final Result Performing Organization Address [facility] Co de Phone Number [facility]
[address] [place] [address], * POC Glucose 4x Daily Before Meals & at Bedtime (06/05/2025 7:50 AM EDT) Glucose 88 70 - 130 mg/dL 06/05/2025 7:52 AM EDT [facility] Comment:Serial Number: [id number]: [id number] Blood 06/05/2025 7:50 AM EDT 06/05/2025 7:52 AM EDT Luz Denson MD POINT OF CARE TEST ORDERABLES Final Result Performing Organization Address [facility] Center/[facility] de Phone Number [facility]
[address] [place] [address], * (ABNORMAL) POC Glucose Once (06/04/2025 7:50 PM EDT) Glucose 166(H) 70 - 130 mg/dL 06/04/2025 8:20 PM EDT [facility] Comment:Serial Number: [id number]: [id number] Blood 06/04/2025 7:50 PM EDT 06/04/2025 8:20 PM EDT Stephanie Moser MD POINT OF CARE TEST ORDERABLES Fi nal Result Performing Organization Address [facility] Co de Phone Number [facility]
[address] [place] [address], * Telemetry Scan (06/04/2025 7:18 PM EDT) [facility] Onbase ECG ORDERABLES Final Result * Telemetry Scan (06/04/2025 4:27 PM EDT) [facility] Onbase ECG ORDERABLES Final Result * (ABNORMAL) POC Glucose Once (06/04/2025 4:10 PM EDT) Glucose 135(H) 70 - 130 mg/dL 06/04/2025 4:12 PM EDT [facility] Comment:Serial Number: [id number] Blood 06/04/2025 4:10 PM EDT 06/04/2025 4:12 PM EDT Stephanie Moser MD POINT OF CARE TEST ORDERABLES Fi nal Result Performing Organization Address [facility] Co de Phone Number [facility]
[address] [place] [address], * POC Glucose 4x Daily Before Meals & at Bedtime (06/04/2025 11:07 AM EDT) Glucose 119 70 - 130 mg/dL 06/04/2025 11:10 AM EDT [facility] Comment:Serial Number: [id number]: [id number] Blood 06/04/2025 11:0 7 AM EDT 06/04/2025 11:10 AM EDT Luz Denson MD POINT OF CARE TEST ORDERABLES Final Result Performing Organization Address City/[facility]/ZIP Co de Phone Number [facility]
[address] [place] [address], * POC Glucose 4x Daily Before Meals & at Bedtime (06/04/2025 7:16 AM EDT) Glucose 77 70 - 130 mg/dL 06/04/2025 7:23 AM EDT [facility] Comment:Serial Number: [id number]: [id number] Blood 06/04/2025 7:16 AM EDT 06/04/2025 7:23 AM EDT Luz Denson MD POINT OF CARE TEST ORDERABLES Final Result Performing Organization Address [facility] Co de Phone Number [facility]
[address] [place] [address], * (ABNORMAL) CBC Auto Differential (06/04/2025 5:05 AM EDT) WBC 9.17 3.40 - 10.80 10*3/mm3 06/04/2025 5:33 AM EDT [facility] RBC 3.71(L) 4.14 - 5.80 10*6/mm3 06/04/2025 5:33 AM EDT [facility] Hemoglobin 8.8(L) 13.0 - 17.7 g/dL 06/04/2025 5:33 AM EDT [facility] Hematocrit 28.1(L) 37.5 - 51.0 % 06/04/2025 5:33 AM EDT [facility] MCV 75.7(L) 79.0 - 97.0 fL 06/04/2025 5:33 AM EDT [facility] MCH 23.7(L) 26.6 - 33.0 pg 06/04/2025 5:33 AM EDT [facility] MCHC 31.3(L) 31.5 - 35.7 g/dL 06/04/2025 5:33 AM [facility] RDW 17.5(H) 12.3 - 15.4 % 06/04/2025 5:33 AM [facility] RDW-SD 48.6 37.0 - 54.0 fl 06/04/2025 5:33 AM [facility] MPV 9.6 6.0 - 12.0 fL 06/04/2025 5:33 AM [facility] Platelets 248 140 - 450 10*3/mm3 06/04/2025 5:33 AM [facility] Neutrophil % 61.4 42.7 - 76.0 % 06/04/2025 5:33 AM [facility] Lymphocyte % 19.8 19.6 - 45.3 % 06/04/2025 5:33 AM [facility] Monocyte % 11.1 5.0 - 12.0 % 06/04/2025 5:33 AM [facility] Eosinophil % 6.7(H) 0.3 - 6.2 % 06/04/2025 5:33 AM [facility] Basophil % 0.7 0.0 - 1.5 % 06/04/2025 5:33 AM [facility] Immature Grans % 0.3 0.0 - 0.5 % 06/04/2025 5:33 AM [facility] Neutrophils, Absolute 5.63 1.70 - 7.00 10*3/mm3 06/04/2025 5:33 AM [facility] Lymphocytes, Absolute 1.82 0.70 - 3.10 10*3/mm3 06/04/2025 5:33 AM [facility] Monocytes, Absolute 1.02(H) 0.10 - 0.90 10*3/mm3 06/04/2025 5:33 AM [facility] Eosinophils, Absolute 0.61(H) 0.00 - 0.40 10*3/mm3 06/04/2025 5:33 AM [facility] Basophils, Absolute 0.06 0.00 - 0.20 10*3/mm3 06/04/2025 5:33 AM EDT [facility] Immature Grans, Absolute 0.03 0.00 - 0.05 10*3/mm3 06/04/2025 5:33 AM EDT [facility] nRBC 0.0 0.0 - 0.2 /100 WBC 06/04/2025 5:33 AM EDT [facility] Blood Venipuncture / Unknown 06/04/2025 5:05 AM EDT 06/04/2025 5:26 AM EDT Zakiya Mccormick DO LAB BLOOD ORDERABLES F inal Result Performing Organization Address City/[facility]/ZIP Co de Phone Number [facility]
[address] [place] [address], * (ABNORMAL) C-reactive Protein (06/04/2025 5:05 AM EDT) C-Reactive Protein 9.09(H) 0.00 - 0.50 mg/dL 06/04/2025 6:06 AM EDT [facility] Blood Venipuncture / Unknown 06/04/2025 5:05 AM EDT 06/04/2025 5:26 AM EDT Burke Vogel MD LAB BLOOD ORDERABLES Final Resul t [facility]
[address] [place] [address], * (ABNORMAL) Sedimentation Rate (06/04/2025 5:05 AM EDT) Sed Rate 127(H) 0 - 20 mm/hr 06/04/2025 6:04 AM EDT [facility] Blood Venipuncture / Unknown 06/04/2025 5:05 AM EDT 06/04/2025 5:26 AM EDT us Burke Vogel MD LAB BLOOD ORDERABLES Final Resul t [facility]
[address] [place] [address], * (ABNORMAL) Renal Function Panel (06/04/2025 5:05 AM EDT) Glucose 79 65 - 99 mg/dL 06/04/2025 6:06 AM EDT [facility] BUN 21.8 8.0 - 23.0 mg/dL 06/04/2025 6:06 AM EDT [facility] Creatinine 1.01 0.76 - 1.27 mg/dL 06/04/2025 6:06 AM EDT [facility] Sodium 137 136 - 145 mmol/L 06/04/2025 6:06 AM EDT [facility] Potassium 4.4 3.5 - 5.2 mmol/L 06/04/2025 6:06 AM EDT [facility] Chloride 108(H) 98 - 107 mmol/L 06/04/2025 6:06 AM EDT [facility] CO2 19.4(L) 22.0 - 29.0 mmol/L 06/04/2025 6:06 AM EDT [facility] Calcium 8.3(L) 8.6 - 10.5 mg/dL 06/04/2025 6:06 AM EDT [facility] Albumin 2.9(L) 3.5 - 5.2 g/dL 06/04/2025 6:06 AM EDT [facility] Phosphorus 3.3 2.5 - 4.5 mg/dL 06/04/2025 6:06 AM EDT [facility] Anion Gap 9.6 5.0 - 15.0 mmol/L 06/04/2025 6:06 AM EDT [facility] BUN/Creatinine Ratio 21.6 7.0 - 25.0 06/04/2025 6:06 AM EDT [facility] eGFR 79.5 >60.0 mL/min/1.7 3 06/04/2025 6:06 AM EDT [facility] Blood Venipuncture / Unknown 06/04/2025 5:05 AM EDT 06/04/2025 5:26 AM EDT Narrative [facility] - 06/04/2025 6:06 AM EDT GFR [...] DO LAB BLOOD ORDERABLES F inal Result [facility]
[address] [place] [address], [place] [phone] * (ABNORMAL) POC Glucose Once (06/03/2025 8:15 PM EDT) [facility] Signature Glucose 170(H) 70 - 130 mg/dL 06/03/2025 8:18 PM EDT [facility] Comment:Serial Number: [id number]: [id number] Blood 06/03/2025 8:15 PM EDT 06/03/2025 8:18 PM EDT Zakiya Mccormick DO POINT OF CARE TEST ORD ERABLES Final Result [facility]
[address] [place] [address], [place] [phone] * Telemetry Scan (06/03/2025 7:51 PM EDT) [facility] Onbase ECG ORDERABLES Final Result * (ABNORMAL) POC Glucose Once (06/03/2025 4:24 PM EDT) Glucose 150(H) 70 - 130 mg/dL 06/03/2025 4:28 PM EDT [facility] Comment:Serial Number: [id number]: [id number] Blood 06/03/2025 4:24 PM EDT 06/03/2025 4:28 PM EDT Zakiya Mccormick DO POINT OF CARE TEST ORD ERABLES Final Result Performing Organization Address [facility] Co de Phone Number [facility]
[address] [place] [address], * POC Glucose 4x Daily Before Meals & at Bedtime (06/03/2025 11:12 AM EDT) Glucose 127 70 - 130 mg/dL 06/03/2025 11:30 AM EDT [facility] Comment:Serial Number: [id number]: [id number] Blood 06/03/2025 11:1 2 AM EDT 06/03/2025 11:30 AM EDT Luz Denson MD POINT OF CARE TEST ORDERABLES Final Result Performing Organization Address City/[facility] Co de Phone Number [facility]
[address] [place] [address], * Telemetry Scan (06/03/2025 8:28 AM EDT) [facility] Onbase ECG ORDERABLES Final Result * POC Glucose 4x Daily Before Meals & at Bedtime (06/03/2025 7:24 AM EDT) Glucose 127 70 - 130 mg/dL 06/03/2025 7:52 AM EDT [facility] Comment:Serial Number: [id number]: [id number] Blood 06/03/2025 7:24 AM EDT 06/03/2025 7:52 AM EDT Luz Denson MD POINT OF CARE TEST ORDERABLES Final Result [facility]
[address] [place] [address], * CK (06/03/2025 5:42 AM EDT) Creatine Kinase 75 20 - 200 U/L 06/03/2025 3:05 PM EDT [facility] Blood Venipuncture / Unknown 06/03/2025 5:42 AM EDT 06/03/2025 6:24 AM EDT Alisa Yan APRN LAB BLOOD ORDERABLES Becca l Result Performing Organization Address [facility] Co de Phone Number [facility]
[address] [place] [address], * Phosphorus (06/03/2025 5:42 AM EDT) Phosphorus 2.9 2.5 - 4.5 mg/dL 06/03/2025 7:11 AM EDT [facility] Blood Venipuncture / Unknown 06/03/2025 5:42 AM EDT 06/03/2025 6:24 AM EDT Luz Denson MD LAB BLOOD ORDE RABLES Final Result Performing Organization Address City/[facility]/ZIP Co de Phone Number [facility]
[address] [place] [address], * Magnesium (06/03/2025 5:42 AM EDT) Pathologist [facility] Magnesium 1.8 1.6 - 2.4 mg/dL 06/03/2025 7:11 AM EDT [facility] Blood Venipuncture / Unknown 06/03/2025 5:42 AM EDT 06/03/2025 6:24 AM EDT Luz Denson MD LAB BLOOD LEVI NOEL Final Result [facility]
[address] [place] [address], * (ABNORMAL) Comprehensive Metabolic Panel (06/03/2025 5:42 AM EDT) Pathologist [facility] Glucose 122(H) 65 - 99 mg/dL 06/03/2025 7:11 AM EDT [facility] BUN 23.2(H) 8.0 - 23.0 mg/dL 06/03/2025 7:11 AM EDT [facility] Creatinine 0.95 0.76 - 1.27 mg/dL 06/03/2025 7:11 AM EDT [facility] Sodium 136 136 - 145 mmol/L 06/03/2025 7:11 AM EDT [facility] Potassium 4.6 3.5 - 5.2 mmol/L 06/03/2025 7:11 AM EDT [facility] Chloride 108(H) 98 - 107 mmol/L 06/03/2025 7:11 AM EDT [facility] CO2 19.5(L) 22.0 - 29.0 mmol/L 06/03/2025 7:11 AM EDT [facility] Calcium 8.2(L) 8.6 - 10.5 mg/dL 06/03/2025 7:11 AM EDT [facility] Total Protein 6.2 6.0 - 8.5 g/dL 06/03/2025 7:11 AM [facility] Albumin 3.0(L) 3.5 - 5.2 g/dL 06/03/2025 7:11 AM [facility] ALT (SGPT) 12 1 - 41 U/L 06/03/2025 7:11 AM [facility] AST (SGOT) 18 1 - 40 U/L 06/03/2025 7:11 AM [facility] Alkaline Phosphatase 95 39 - 117 U/L 06/03/2025 7:11 AM [facility] Total Bilirubin 0.2 0.0 - 1.2 mg/dL 06/03/2025 7:11 AM [facility] Globulin 3.2 gm/dL 06/03/2025 7:11 AM [facility] Comment:Calculated Result A/G Ratio 0.9 g/dL 06/03/2025 7:11 AM [facility] BUN/Creatinine Ratio 24.4 7.0 - 25.0 06/03/2025 7:11 AM [facility] Anion Gap 8.5 5.0 - 15.0 mmol/L 06/03/2025 7:11 AM [facility] eGFR 85.6 >60.0 mL/min/1.7 3 06/03/2025 7:11 AM [facility] Blood Venipuncture / Unknown 06/03/2025 5:42 AM EDT 06/03/2025 6:24 AM [facility] - 06/03/2025 7:11 AM EDT [...] MD LAB BLOOD LEVI COHEN Final Result [facility]
[address] [place] [address], * (ABNORMAL) CBC Auto Differential (06/03/2025 5:42 AM EDT) WBC 9.13 3.40 - 10.80 10*3/mm3 06/03/2025 6:28 AM EDT [facility] RBC 3.72(L) 4.14 - 5.80 10*6/mm3 06/03/2025 6:28 AM EDT [facility] Hemoglobin 8.6(L) 13.0 - 17.7 g/dL 06/03/2025 6:28 AM EDT [facility] Hematocrit 28.2(L) 37.5 - 51.0 % 06/03/2025 6:28 AM EDT [facility] MCV 75.8(L) 79.0 - 97.0 fL 06/03/2025 6:28 AM EDT [facility] MCH 23.1(L) 26.6 - 33.0 pg 06/03/2025 6:28 AM EDT [facility] MCHC 30.5(L) 31.5 - 35.7 g/dL 06/03/2025 6:28 AM EDT [facility] RDW 17.8(H) 12.3 - 15.4 % 06/03/2025 6:28 AM EDT [facility] RDW-SD 49.3 37.0 - 54.0 fl 06/03/2025 6:28 AM EDT [facility] MPV 10.2 6.0 - 12.0 fL 06/03/2025 6:28 AM EDT [facility] Platelets 272 140 - 450 10*3/mm3 06/03/2025 6:28 AM EDT [facility] Neutrophil % 66.9 42.7 - 76.0 % 06/03/2025 6:28 AM [facility] Lymphocyte % 17.5(L) 19.6 - 45.3 % 06/03/2025 6:28 AM [facility] Monocyte % 11.6 5.0 - 12.0 % 06/03/2025 6:28 AM [facility] Eosinophil % 3.2 0.3 - 6.2 % 06/03/2025 6:28 AM [facility] Basophil % 0.4 0.0 - 1.5 % 06/03/2025 6:28 AM [facility] Immature Grans % 0.4 0.0 - 0.5 % 06/03/2025 6:28 AM [facility] Neutrophils, Absolute 6.10 1.70 - 7.00 10*3/mm3 06/03/2025 6:28 AM [facility] Lymphocytes, Absolute 1.60 0.70 - 3.10 10*3/mm3 06/03/2025 6:28 AM [facility] Monocytes, Absolute 1.06(H) 0.10 - 0.90 10*3/mm3 06/03/2025 6:28 AM [facility] Eosinophils, Absolute 0.29 0.00 - 0.40 10*3/mm3 06/03/2025 6:28 AM [facility] Basophils, Absolute 0.04 0.00 - 0.20 10*3/mm3 06/03/2025 6:28 AM [facility] Immature Grans, Absolute 0.04 0.00 - 0.05 10*3/mm3 06/03/2025 6:28 AM [facility] nRBC 0.0 0.0 - 0.2 /100 WBC 06/03/2025 6:28 AM [facility] Blood Venipuncture / Unknown 06/03/2025 5:42 AM EDT 06/03/2025 6:24 AM EDT Luz Denson MD LAB BLOOD ORDE RABLES Final Result Performing Organization Address City/[facility]/ZIP Co de Phone Number [facility]
[address] [place] [address], * (ABNORMAL) POC Glucose Once (06/02/2025 8:04 PM EDT) Glucose 165(H) 70 - 130 mg/dL 06/02/2025 8:06 PM EDT [facility] Comment:Serial Number: [id number]: [id number] Blood 06/02/2025 8:04 PM EDT 06/02/2025 8:06 PM EDT Luz Denson MD POINT OF CARE TEST ORDERABLES Final Result Performing Organization Address [facility] Co de Phone Number [facility]
[address] [place] [address], * Telemetry Scan (06/02/2025 7:59 PM EDT) [facility] ORDER[facility] Final Result * (ABNORMAL) POC Glucose 4x Daily Before Meals & at Bedtime (06/02/2025 5:14 PM EDT) Glucose 179(H) 70 - 130 mg/dL 06/02/2025 5:16 PM EDT [facility] Comment:Serial Number: [id number]: [id number] Blood 06/02/2025 5:14 PM EDT 06/02/2025 5:16 PM EDT Luz Denson MD POINT OF CARE TEST ORDERABLES Final Result Performing Organization Address City/[facility]/ZIP Co de Phone Number [facility]
[address] [place] [address], * (ABNORMAL) Urine Culture - Urine, Indwelling Urethral Catheter (06/02/2025 12:31 PM EDT) Urine Culture >100,000 CFU/mL Proteus mirabilis ESBL(A) MURRAY 06/06/2025 8:04 AM EDT [facility] Urine Culture >100,000 CFU/mL Escherichia coli(A) MURRAY 06/06/2025 8:04 AM EDT [facility] Urine (Indwelling Urethral Catheter) Collection / Unknown 06/02/2025 12:31 PM EDT 06/02/2025 12:38 PM EDT Narrative [facility] - 06/06/2025 8:04 AM EDT Colonization [...] MICROBIOLOGY - GENERAL ORDERAB LES Final Result [facility]
[address] [place] [address], * (ABNORMAL) Urinalysis, Microscopic Only - Indwelling Urethral Catheter (06/02/2025 12:31 PM EDT) RBC, UA Too Numerous to Count(A) None Seen, 0-2 /HPF 06/02/2025 1:05 PM EDT [facility] WBC, UA Too Numerous to Count(A) None Seen, 0-2 /HPF 06/02/2025 1:05 PM EDT [facility] Bacteria, UA 4+(A) None Seen /HPF 06/02/2025 1:05 PM EDT [facility] Squamous Epithelial Cells, UA Unable to determine due to loaded field(A) None Seen, 0-2 /HPF 06/02/2025 1:05 PM EDT [facility] Hyaline Casts, UA Unable to determine due to loaded field None Seen /LPF 06/02/2025 1:05 PM EDT [facility] Methodology Manual Light Microscopy 06/02/2025 1:05 PM EDT [facility] Urine (Indwelling Urethral Catheter) Collection / Unknown 06/02/2025 12:31 PM EDT 06/02/2025 12:38 PM EDT us Mary Miller MD URINE ORDERABLES Final Result [facility]
[address] [place] [address], * (ABNORMAL) Urinalysis With Culture If Indicated - Indwelling Urethral Catheter (06/02/2025 12:31 PMEDT) Color, UA Yellow Yellow, Straw 06/02/2025 12:46 PM EDT [facility] Appearance, UA Turbid(A) Clear 06/02/2025 12:46 PM EDT [facility] pH, UA 8.0 5.0 - 8.0 06/02/2025 12:46 PM EDT [facility] Specific [place], UA 1.019 1.005 - 1.030 06/02/2025 12:46 PM EDT [facility] Glucose, UA Negative Negative 06/02/2025 12:46 PM EDT [facility] Ketones, UA Negative Negative 06/02/2025 12:46 PM EDT [facility] Bilirubin, UA Negative Negative 06/02/2025 12:46 PM EDT [facility] Blood, UA Large (3+)(A) Negative 06/02/2025 12:46 PM EDT [facility] Protein, UA >=300 mg/dL (3+)(A) Negative 06/02/2025 12:46 PM EDT [facility] Leuk Esterase, UA Large (3+)(A) Negative 06/02/2025 12:46 PM EDT [facility] Nitrite, UA Positive(A) Negative 06/02/2025 12:46 PM EDT [facility] Urobilinogen, UA 1.0 E.U./dL 0.2 - 1.0 E.U./dL 06/02/2025 12:46 PM EDT [facility] Urine (Indwelling Urethral Catheter) Collection / Unknown 06/02/2025 12:31 PM EDT 06/02/2025 12:38 PM EDT Narrative [facility] - 06/02/2025 12:46 PM EDT In absence of clinical symptoms, the presence of pyuria, bacteria, and/or nitrites on the urinalysis result does not correlate with infection. Mary Miller MD URINE ORDERABLES Final Result [facility]
[address] [place] [address], * ECG 12 Lead Other; Weakness (06/02/2025 [...] By: edmd Confirmed By: MARY MILLER MD Mary Miller MD ECG ORDERABLES Final Result [...] MD 06/02/2025 12:22 PM EDT Workstation ID: [id number] Narrative 06/02/2025 12:[address] ABDOMEN [...] MD 06/02/2025 12:22 PM EDT Workstation ID: [id number] us Mary Miller MD IMG CT ORDERABLES Final Result * POC Creatinine (06/02/2025 11:45 AM EDT) Creatinine 1.10 0.60 - 1.30 mg/dL [facility] Blood 06/02/2025 11:4 5 AM EDT us Mary Miller MD POINT OF CARE TEST ORDERABLES Final Result [facility]
[address] [place] [address], * POC Creatinine (06/02/2025 11:38 AM EDT) Creatinine 1.10 0.60 - 1.30 mg/dL 06/02/2025 11:55 AM EDT [facility] Comment:Serial Number: [id number] [id number] Venous Blood 06/02/2025 11:3 8 AM EDT 06/02/2025 11:55 AM EDT us Mary Miller MD POINT OF CARE TEST ORDERABLES Final Result [facility]
[address] [place] [address], * Blood Culture - Blood, Hand, Right (06/02/2025 11:37 AM EDT) Blood Culture No growth at 5 days 06/07/2025 11:45 AM EDT [facility] Blood Structure of right hand / Unknown Venipuncture / Unknown 06/02/2025 11:37 AM EDT 06/02/2025 11:43 AM EDT us Mary Miller MD MICROBIOLOGY - GENERAL ORDERAB LES Final Result Performing Organization Address City/[facility]/ZIP Co de Phone Number [facility]
[address] [place] [address], * COVID-19, FLU A/B, RSV PCR 1 HR TAT - Swab, Nasopharynx (06/02/2025 11:25 AM EDT) Pathologist [facility] COVID19 Not Detected Not Detected - Ref. Range [employer] 06/02/2025 12:39 PM EDT [facility] Influenza A PCR Not Detected Not Detected [employer] 06/02/2025 12:39 PM EDT [facility] Influenza B PCR Not Detected Not Detected [employer] 06/02/2025 12:39 PM EDT [facility] RSV, PCR Not Detected Not Detected [employer]EXP[employer] 06/02/2025 12:39 PM EDT [facility] Swab Nasopharyngeal structure / Unknown Collection / Unknown 06/02/2025 11:25 AM EDT 06/02/2025 11:39 AM EDT us Mary Miller MD MICROBIOLOGY - GENERAL ORDERAB LES Final Result Performing Organization Address City/[facility]/ZIP Co de Phone Number [facility]
[address] [place] [address], [place] [phone] * (ABNORMAL) Wound Culture - Swab, Leg, Left (06/02/2025 11:04 AM EDT) Pathologist [facility] Wound Culture Light growth (2+) Proteus mirabilis(A) MURRAY 06/07/2025 7:54 AM EDT [facility] Wound Culture Moderate growth (3+) Staphylococcus aureus, MRSA(A) MURRAY 06/07/2025 7:54 AM EDT [facility] Comment: Methicillin resistant Staphylococcus aureus, Patient may be an isolation risk. Wound Culture Light growth (2+) Pseudomonas aeruginosa(A) MURRAY 06/07/2025 7:54 AM EDT [facility] Comment: Gram Stain Occasional WBCs seen 06/07/2025 7:54 AM EDT [facility] Gram Stain Rare (1+) Gram positive cocci in pairs 06/07/2025 7:54 AM EDT [facility] Swab Structure of left lower [...] MURRAY <=4 ug/ml: Susceptible Proteus mirabilis Tetracycline MURARY >=16 ug/ml: Resistant Proteus mirabilis Trimethoprim + [...] GENERAL ORDERAB LES Edited Result - Final [facility]
[address] [place] [address], [facility]
[address] [place] [address], * (ABNORMAL) CBC Auto Differential (06/02/2025 11:03 AM EDT) [facility] WBC 7.85 3.40 - 10.80 10*3/mm3 06/02/2025 11:15 AM EDT [facility] RBC 4.26 4.14 - 5.80 10*6/mm3 06/02/2025 11:15 AM EDT [facility] Hemoglobin 9.7(L) 13.0 - 17.7 g/dL 06/02/2025 11:15 AM EDT [facility] Hematocrit 31.8(L) 37.5 - 51.0 % 06/02/2025 11:15 AM [facility] MCV 74.6(L) 79.0 - 97.0 fL 06/02/2025 11:15 AM [facility] MCH 22.8(L) 26.6 - 33.0 pg 06/02/2025 11:15 AM [facility] MCHC 30.5(L) 31.5 - 35.7 g/dL 06/02/2025 11:15 AM [facility] RDW 17.4(H) 12.3 - 15.4 % 06/02/2025 11:15 AM [facility] RDW-SD 47.0 37.0 - 54.0 fl 06/02/2025 11:15 AM [facility] MPV 9.7 6.0 - 12.0 fL 06/02/2025 11:15 AM [facility] Platelets 262 140 - 450 10*3/mm3 06/02/2025 11:15 AM [facility] Neutrophil % 80.9(H) 42.7 - 76.0 % 06/02/2025 11:15 AM [facility] Lymphocyte % 9.8(L) 19.6 - 45.3 % 06/02/2025 11:15 AM [facility] Monocyte % 8.0 5.0 - 12.0 % 06/02/2025 11:15 AM [facility] Eosinophil % 0.1(L) 0.3 - 6.2 % 06/02/2025 11:15 AM [facility] Basophil % 0.8 0.0 - 1.5 % 06/02/2025 11:15 AM [facility] Immature Grans % 0.4 0.0 - 0.5 % 06/02/2025 11:15 AM [facility] Neutrophils, Absolute 6.35 1.70 - 7.00 10*3/mm3 06/02/2025 11:15 AM [facility] Lymphocytes, Absolute 0.77 0.70 - 3.10 10*3/mm3 06/02/2025 11:15 AM EDT [facility] Monocytes, Absolute 0.63 0.10 - 0.90 10*3/mm3 06/02/2025 11:15 AM EDT [facility] Eosinophils, Absolute 0.01 0.00 - 0.40 10*3/mm3 06/02/2025 11:15 AM EDT [facility] Basophils, Absolute 0.06 0.00 - 0.20 10*3/mm3 06/02/2025 11:15 AM EDT [facility] Immature Grans, Absolute 0.03 0.00 - 0.05 10*3/mm3 06/02/2025 11:15 AM EDT [facility] nRBC 0.0 0.0 - 0.2 /100 WBC 06/02/2025 11:15 AM EDT [facility] Blood Venipuncture / Unknown 06/02/2025 11:03 AM EDT 06/02/2025 11:09 AM EDT us Mary Miller MD LAB BLOOD ORDERABLES Final Res ult [facility]
[address] [place] [address], * Procalcitonin (06/02/2025 11:03 AM EDT) Procalcitonin 0.22 0.00 - 0.25 ng/mL 06/02/2025 11:36 AM EDT [facility] Blood Venipuncture / Unknown 06/02/2025 11:03 AM EDT 06/02/2025 11:09 AM EDT Narrative [facility] - 06/02/2025 11:36 AM EDT [...] Day 4 values are available. Refer to http://www.ralgxs-wsr-mcqnjxsyuw.com Change in PCT <=80% A decrease of [...] ORDERABLES Final Res ult Performing Organization Address [facility] Co de Phone Number [facility]
[address] [place] [address], [place] [phone] * Lactic Acid, Plasma (06/02/2025 11:03 AM EDT) [facility] Lactate 0.9 0.5 - 2.0 mmol/L 06/02/2025 11:27 AM EDT [facility] Comment:Falsely depressed re sults may occur on samples drawn from patients receiving N-Acetylcysteine (NAC) or Metamizole. Blood Venipuncture / Unknown 06/02/2025 11:03 AM EDT 06/02/2025 11:09 AM EDT us Mary Miller MD LAB BLOOD ORDERABLES Final Res ult Performing Organization Address [facility] Co de Phone Number [facility]
[address] [place] [address], [place] [phone] * (ABNORMAL) Comprehensive Metabolic Panel (06/02/2025 11:03 AM EDT) Glucose 182(H) 65 - 99 mg/dL 06/02/2025 11:36 AM [facility] BUN 30.6(H) 8.0 - 23.0 mg/dL 06/02/2025 11:36 AM [facility] Creatinine 0.99 0.76 - 1.27 mg/dL 06/02/2025 11:36 AM T [facility] Sodium 134(L) 136 - 145 mmol/L 06/02/2025 11:36 AM [facility] Potassium 4.5 3.5 - 5.2 mmol/L 06/02/2025 11:36 AM [facility] Chloride 106 98 - 107 mmol/L 06/02/2025 11:36 AM [facility] CO2 18.6(L) 22.0 - 29.0 mmol/L 06/02/2025 11:36 AM [facility] Calcium 8.6 8.6 - 10.5 mg/dL 06/02/2025 11:36 AM [facility] Total Protein 7.1 6.0 - 8.5 g/dL 06/02/2025 11:36 AM [facility] Albumin 3.4(L) 3.5 - 5.2 g/dL 06/02/2025 11:36 AM T [facility] ALT (SGPT) 14 1 - 41 U/L 06/02/2025 11:36 AM [facility] AST (SGOT) 18 1 - 40 U/L 06/02/2025 11:36 AM [facility] Alkaline Phosphatase 112 39 - 117 U/L 06/02/2025 11:36 AM [facility] Total Bilirubin 0.2 0.0 - 1.2 mg/dL 06/02/2025 11:36 AM [facility] Globulin 3.7 gm/dL 06/02/2025 11:36 AM EDT [facility] Comment:Calculated Result A/G Ratio 0.9 g/dL 06/02/2025 11:36 AM EDT [facility] BUN/Creatinine Ratio 30.9(H) 7.0 - 25.0 06/02/2025 11:36 AM EDT [facility] Anion Gap 9.4 5.0 - 15.0 mmol/L 06/02/2025 11:36 AM EDT [facility] eGFR 81.4 >60.0 mL/min/1.7 3 06/02/2025 11:36 AM EDT [facility] Blood Venipuncture / Unknown 06/02/2025 11:03 AM EDT 06/02/2025 11:09 AM EDT [facility] - 06/02/2025 11:36 AM EDT GFR [...] MD LAB BLOOD ORDERABLES Final Res ult [facility]
[address] [place] [address], * Blood Culture - Blood, Hand, Right (06/02/2025 10:55 AM EDT) Blood Culture No growth at 5 days 06/07/2025 11:45 AM EDT [facility] Blood Structure of right hand / Unknown Venipuncture / Unknown 06/02/2025 10:55 AM EDT 06/02/2025 11:40 AM EDT Mary Miller MD MICROBIOLOGY - GENERAL ORDERAB LES Final Result [facility]
[address] [id number], * XR Chest 1 View (06/02/2025 10:39 AM EDT) Anatomical Region Laterality Modality Body N/A Radiographic Martha ging 06/02/2025 10:4 3 AM EDT Impressions 06/02/2025 10:45 AM EDT Impression: Stable appearance of the chest without focal airspace consolidation. Electronically Signed: Rony Monsalve MD 06/02/2025 10:45 AM EDT Workstation ID: [id number] Narrative 06/02/2025 10:45 AM EDT XR CHEST [...] MD 06/02/2025 10:45 AM EDT Workstation ID: [id number] Mary Miller MD IMG DIAGNOSTIC IMAGING ORDERAB LES Final Result * Telemetry Scan (06/02/2025 9:44 AM EDT) [facility] ECG ORDERABLES Final Result documented in this [...] dose on 06/03/25 at 0900, Group 2 ([place]) Hazardous Drug - Reproductive Risk Only - [...] for injection by adding 1 mL of network solutions architect-supplied sterile diluent or sterile water for injection [...] mg/dL - 7 units & Call Provider ([facility]) Caution: Look alike/sound alike drug alert([facility]) Given 06/10/2025 10:01 PM EDT 2 Units [...] patient with VRE history, Indications: EmpiricIndications:Empiric New Bag 06/02/2025 3:00 PM EDT 600 mg 300 [...] On Wed06/04/25 at 1415, For 1 dose New 06/04/2025 3:05 PM EDT 500 mg meropenem (MERREM) 500 mg in sodium chloride 0.9 % 100 mL MBP 500 mg, Intravenous, Administer over 3 Hours, Every 6 Hours, First dose on Wed06/04/25 at 2100, For 7 days, Indications: Skin and Soft Tissue Infection, UTIIndications:Skin and Soft Tissue Infection,UTI New 06/06/2025 2:43 AM EDT 500 mg New 06/05/2025 8:59 PM EDT 500 mg New 06/05/2025 2:29 PM EDT 500 mg meropenem (MERREM) 500 mg in sodium chloride 0.9 % 100 mL MBP 500 mg, Intravenous, Administer over 3 Hours, Every 6 Hours, First dose on Wed06/06/25 at 0900, For 7 days, Indications: Skin and Soft Tissue Infection, Uncomplicated Cystitis, ESBLIndications:Skin and Soft Tissue Infection,Uncomplicated Cystitis,ESBL New 06/11/2025 10:42 AM EDT 500 m g [...] Daily, First dose on 06/03/25 at 0900, (BK) Given 06/11/2025 9:13 AM EDT 1 tablet [...] BPA Driven Protocol Open Order & Select [facility] Electrolyte Replacement Protocol Algorithm to View Details [...] RN) 08 (Given - Provider: Orin Silva RN)220 (Given - Provider: Arnoldo Reeves RN) 0914 (Given - Provider: Orin Silva RN) baclofen (LIORESAL) tablet 10 mg 10 mg, Oral, Every 12 Hours Scheduled, First dose on 06/02/25 at 2100, Take with food if GI upset occurs. 31 (Given - Provider: Carmenza Bishop RN)2047 (Given - Provider: Joann Byrd RN) 30 (Given - Provider: Orin Silva RN)2202 (Given [...] RN) 08 (Given - Provider: Orin Silva RN)1823 (Given - Provider: Carmenza Bishop RN) 0913 (Given - Provider: Orin Silva RN) clopidogrel [...] dose on 06/03/25 at 0900, Group 2 ([place]) Hazardous Drug - Reproductive Risk Only - [...] Bishop RN)1425 (Given - Provider: Carmenza Bishop RN)204 (Given - Provider: Joann Byrd RN) 0829 (Given - Provider: Orin Silva RN)1521 (Given - Provider: Carmenza Bishop RN)2203 (Given - Provider: Arnoldo Reeves RN) 0914 (Given - Provider: Orin Silva RN)1500 (Due) insulin glargine (LANTUS, SEMGLEE) injection 25 Units 25 Units, Subcutaneous, Nightly, First dose on 06/02/25 at 2100, Do not hold basal insulin without an order. Consider requesting a dose edit, if needed. ([facility]) 2104 (Given - Provider: Joann Byrd RN) [...] mg/dL - 7 units & Call Provider ([facility]) Caution: Look alike/sound alike drug alert([facility]) 0820 (Not Given - Provider: Carmenza Bishop [...] Bishop RN - Reason: Order parameters not met)2201 (Given - Provider: Arnoldo Reeves RN) 0741 [...] 0829 (Given - Provider: Orin Silva RN) 09 (Given - Provider: Orin Silva RN) lamoTRIgine [...] Hours, Every 6 Hours, First dose on 06/06/25 at 0900, For 7 days, Indications: Skin and Soft Tissue Infection, Uncomplicated Cystitis, ESBL 0330 (New Bag - Provider: Staci Mckeon RN)0934 (New Bag - Provider: Carmenza Bishop RN)1425 (New Bag - Provider: Carmenza Bishop RN)2050 (New Bag - Provider: Joann Byrd RN) 0300 (New Bag - Provider: Joann Byrd RN)1048 (New Bag - Provider: Carmenza Bishop RN)1521 (New Bag - Provider: Carmenza Bishop, JESSEE)2201 (New Bag - Provider: Arnoldo Reeves RN) 0432 (New Bag - Provider: Arnoldo Reeves RN)0700 (Stopped - Provider: Orin Silva RN)1042 (New Bag - Provider: Yanelis Vides RN)1500 (Due) multivitamin with minerals 1 tablet 1 tablet, Oral, Daily, First dose on 06/03/25 at 0900, ([facility]) 0931 (Given - Provider: Carmenza Bishop RN) 0829 (Given - Provider: Orin Silva, JESSEE) 0913 (Given - Provider: Orin Silva RN) pantoprazole [...] chew. 0931 (Given - Provider: Carmenza Bishop RN)2048 (Given - Provider: Joann Byrd RN) 08 (Given - Provider: Orin Silva RN)220 (Given - Provider: Arnoldo Reeves, JESSEE) 0913 (Given - Provider: Orin Silva RN) sacubitril-valsartan [...] Carmenza Bishop RN)2103 (Given - Provider: Joann Byrd RN) 08 (Given - Provider: Orin Silva RN)2203 [...] BPA Driven Protocol Open Order & Select [facility] Electrolyte Replacement Protocol Algorithm to View Details [...] for injection by adding 1 mL of network solutions architect-supplied sterile diluent or sterile water for injection to a vial containing 1 mg of the drug, to provide solutions containing 1 mg/mL. Shake vial gently to dissolve. Magnesium Standard Dose Replacement - Follow Nurse / BPA Driven Protocol Open Order & Select [facility] Electrolyte Replacement Protocol Algorithm to View Details [...] CPOT 5-8 0030 (Given - Provider: Staci Mckeon, RN)0944 (Given - Provider: Carmenza Bihsop, JESSEE)1732 (Given - Provider: Carmenza Bishop, JESSEE)2225 (Given - Provider: Joann Byrd, JESSEE) 0829 (Given - Provider: Orin Silva, JESSEE)1828 (Given - Provider: Carmenza Bishop RN)2311 (Given - Provider: Alicia Martinez, JESSEE) 0431 (Given - Provider: Arnoldo Reeves, RN) nitroglycerin (NITROSTAT) SL tablet 0.4 mg [...] Staci Mckeon RN)2105 (Given - Provider: Joann Byrd, JESSEE) 0259 (Given - Provider: Joann Byrd RN) [...] Resolved Time 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
--- OUTSIDE RECORDS SUMMARY | 2025-06-19 03:29 | XMS_ITS | Clinical Summary ---
Author Organization [facility] Address [address] [place] [address] Phone Care Team Providers Care Mobile Game Engineer Name Role Phone Mckenna MURILLO, Britton Clifford [ ] Conditions or Problems Problem Name Problem Code Onset Date Status Entry Date Provider Comment Standard Description Annotate DM Non-pressure chronic ulcer of left heel, black/dry (document depth) 050414402 (SNOMED CT) 09/19 Active 09/19 Crys Alfredo Chronic ulcer of foot Infection, local skin/subcuta neous tissue 942826376 (SNOMED CT) 09/19 Active 09/19 Crys Alfredo Localized infection of skin AND/OR subcutaneous tissue Gangrene with DM II PVD 18228393 (SNOMED CT) 09/19 Active 09/19 Crys Alfredo Type 2 diabetes mellitus DM II with diabetic PVD 707099748 (SNOMED CT) Active Crys Alfredo Peripheral vascular disease Diabetes mellitus, type II with peripheral vascular disorder, with gangrene 325197447 (SNOMED CT) Resolved Crys Alfredo Peripheral circulatory disorder due to type 2 diabetes mellitus Presence of ambrose catheter 698507845 (SNOMED CT) Resolved Crys Alfredo Urinary catheter in situ Benign Essential Hypertension 57485260 (SNOMED CT) Active Crys Alfredo Benign hypertension DM II with diabetic polyneuropat hy E11.42 (ICD-10-CM) Active Crys Alfredo Type 2 diabetes mellitus with diabetic polyneuropathy Other obesity due to excess calories 898369750 (SNOMED CT) Active Myranda Zelaya Simple obesity Presence of ambrose catheter 294748046 (SNOMED CT) Removed Bibi Edelen Urinary catheter in situ Pressure ulcer of left buttock, stage 1 12423801715 959321 (SNOMED CT) Active Bibi Edelen Pressure injury of buttock stage I Pressure ulcer of right buttock, stage 1 03586546615 107 (SNOMED CT) Active Bibi Edelen Pressure injury of right buttock stage I Cellulitis of left lower limb 283632293 (SNOMED CT) Active Bibi Edelen Cellulitis of leg, excluding foot Diabetes mellitus, type II with peripheral vascular disorder, with gangrene 960733501 (SNOMED CT) Removed Bibi Edelen Peripheral circulatory disorder due to type 2 diabetes mellitus Hx of DVT 878541856 (SNOMED CT) Active Bibi Edelen History of deep vein thrombosis Amputation of right leg above knee 665437923 (SNOMED CT) Active Bibi Edelen Amputated above knee Diabetes mellitus, type II with peripheral vascular disorder, without gangrene 744748355 (SNOMED CT) Inactive Bibi Edelen Peripheral circulatory disorder due to type 2 diabetes mellitus Diabetes mellitus, type II with peripheral neuropathy 56778759533 07 (SNOMED CT) Inactive Bibi Edelen Peripheral neuropathy due to type 2 diabetes mellitus Hypertension 34302725 (SNOMED CT) Inactive Bibi Edelen Hypertensive disorder Medications Medication Instructions Start Date Stop Date Generic Name NDC Provider DOXYCYCLINE HYCLATE 100 MG CAPS Take 1 capsule by mouth 2 (Two) Times a Day for 10 days. doxycycline hyclate 03730035634 QIE qieuser AMOXICILLIN-POT CLAVULANATE 875-125 MG TABS 1 {tbl} Oral amoxicillin-pot clavulanate 89151891622 QIE qieuser ATORVASTATIN CALCIUM 40 MG TABS Take 2 tablet by mouth every night atorvastatin 93765162860 Daria Minor METFORMIN HCL 500 MG TABS Take 2 tablet by mouth twice a day metformin 18815913446 Daria Minor CLOPIDOGREL BISULFATE 75 MG TABS Take 1 tablet by mouth once a day clopidogrel 50626486796 Daria Minor PEG 3350 17 GM PACK Take 17 gram by mouth once a day as needed polyethylene glycol 3350 55135766148 Daria Minor LAMOTRIGINE 100 MG TABS Take 1 tablet by mouth every morning lamotrigine 22925434118 Daria Minor FINASTERIDE 5 MG TABS Take 1 tablet by mouth once a day finasteride 19122404600 Daria Minor DOCUSATE SODIUM 250 MG CAPS Take 1 capsule by mouth twice a day docusate sodium 55582978539 Daria Minor ASPIRIN 81 MG TBEC Take 1 tablet by mouth once a day aspirin 40833206612 Daria Minor FUROSEMIDE 40 MG TABS Take 1 tablet by mouth once a day furosemide 43835607757 Daria Minor Thera M Plus (ferrous fumarat) 9 mg iron-400 mcg tablet Take 1 tablet by mouth once a day bksclfbf-zhxk-i y-zxglafg-qkyx 92739020954 Daria Minor FERROUS SULFATE 325 (65 Fe) MG TABS Take 1 tablet by mouth every morning ferrous sulfate 56865452728 Daria Minor LAMOTRIGINE 25 MG TABS Take 10 tablet by mouth every night lamotrigine 68350775737 Daria Minor BACLOFEN 20 MG TABS Take 1 tablet by mouth as needed baclofen 62595162270 Daria Minor TAMSULOSIN HCL 0.4 MG CAPS Take 2 capsule by mouth once a day tamsulosin 46681297187 Daria Minor DIAZEPAM 2 MG TABS Take 1 tablet by mouth twice a day as needed diazepam 91700814597 Daria Minor LOSARTAN POTASSIUM 50 MG TABS Take 1 tablet by mouth once a day losartan 04054454449 Daria Minor BUSPIRONE HCL 5 MG TABS Take 1 tablet by mouth three times a day buspirone 74681258230 Daria Minor METOPROLOL SUCCINATE ER 25 MG [id number] Take 1 tablet by mouth once a day metoprolol succinate 26855087358 Daria Minor ubrogepant Take 1 tablet by mouth once a day as needed UBRELVY Daria Minor GLIPIZIDE 5 MG TABS Take 1 tablet by mouth twice a day glipizide 59158467086 Daria Minor ubrogepant Take 1 tablet by mouth Daily As Needed. UBRELVY QIE qieuser TAMSULOSIN HCL 0.4 MG CAPS Take 2 capsules by mouth Daily. tamsulosin 90434427207 QIE qieuser PEG 3350 17 GM PACK Take 17 g by mouth Daily As Needed. polyethylene glycol 3350 84960111402 QIE qieuser Thera M Plus (ferrous fumarat) 9 mg iron-400 mcg tablet Take 1 tablet by mouth Daily. btblwnfc-xyks-h d-prgfajo-debs 94824220741 QIE qieuser METOPROLOL SUCCINATE ER 25 MG [id number]-RDB Take 1 tablet by mouth Daily. metoprolol succinate 60234023579 QIE qieuser METFORMIN HCL 500 MG TABS Take 2 tablets by mouth 2 (Two) Times a Day With Meals. metformin 43506951195 QIE qieuser LOSARTAN POTASSIUM 50 MG TABS Take 1 tablet by mouth Daily. losartan 15656366832 QIE qieuser LAMOTRIGINE 25 MG TABS Take 10 tablets by mouth Every Night. lamotrigine 97070656048 QIE qieuser LAMOTRIGINE 100 MG TABS Take 1 tablet by mouth Every Morning. lamotrigine 20254981437 QIE qieuser GLIPIZIDE 5 MG TABS Take 1 tablet by mouth 2 (Two) Times a Day Before Meals. glipizide 19807618321 QIE qieuser FUROSEMIDE 40 MG TABS Take 1 tablet by mouth Daily. furosemide 02277335077 QIE qieuser FINASTERIDE 5 MG TABS Take 1 tablet by mouth Daily. finasteride 23887026467 QIE qieuser FERROUS SULFATE 325 (65 Fe) MG TABS Take 1 tablet by mouth Daily With Breakfast. ferrous sulfate 94004910650 QIE qieuser DOXYCYCLINE HYCLATE 100 MG CAPS Take 1 capsule by mouth 2 (Two) Times a Day for 7 days. doxycycline hyclate 00957594419 QIE qieuser DOCUSATE SODIUM 250 MG CAPS Take 1 capsule by mouth 2 (Two) Times a Day. docusate sodium 21634974528 QIE qieuser DIAZEPAM 2 MG TABS Take 1 tablet by mouth 2 (Two) Times a Day As Needed for Anxiety. diazepam 72691160044 QIE qieuser CLOPIDOGREL BISULFATE 75 MG TABS Take 1 tablet by mouth Daily. clopidogrel 96277433455 QIE qieuser BUSPIRONE HCL 5 MG TABS Take 1 tablet by mouth 3 (Three) Times a Day. buspirone 21509514419 QIE qieuser BACLOFEN 20 MG TABS Take 1 tablet by mouth As Needed for Muscle Spasms. baclofen 46799630927 QIE qieuser ATORVASTATIN CALCIUM 40 MG TABS Take 2 tablets by mouth Every Night. atorvastatin 70196027994 QIE qieuser ASPIRIN 81 MG TBEC Take 1 tablet by mouth Daily. OTC aspirin 84652208536 QIE qieuser AMOXICILLIN-POT CLAVULANATE 875-125 MG TABS Take 1 tablet by mouth 2 (Two) Times a Day for 7 days. amoxicillin-pot clavulanate 25139390422 QIE qieuser Medications Administered No information available. [...]
--- OUTSIDE RECORDS SUMMARY | 2025-06-19 03:30 | XMS_ITS | Referral Summary ---
Author Organization [facility] ([place], [place], [place], [place]) Address [address] [place] [address] Care Team Providers Care Hay Chopper Name Role Phone Unavailable Primary Care Provider [...]
--- OUTSIDE RECORDS SUMMARY | 2025-06-19 03:31 | XMS_ITS | Encounter Summary ---
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 11/17/2021 06/02/2025 COVID Screen (preop/placement) 11/30/2021 11/30/2021 11/30/2021 3:20 PM EDT COVID Screen (preop/placement) 05/03/2022 05/03/2022 05/03/2022 8:10 PM EDT COVID Screen (preop/placement) 05/08/2022 05/08/2022 05/08/2022 11:37 AM EDT COVID Screen (preop/placement) 05/09/2022 05/09/2022 05/09/2022 5:41 AM EDT COVID Screen (preop/placement) 06/21/2022 06/21/2022 06/21/2022 11:06 AM EDT COVID Screen (preop/placement) 06/23/2022 06/23/2022 06/23/2022 3:52 PM EDT ESBL 08/31/2023 08/31/2023 08/31/2024 12:4 9 PM EST COVID (rule out) 06/02/2025 06/02/2025 06/02/2025 12:39 PM EDT ESBL 06/02/2025 06/02/2025 documented as of this encounter Care Teams Repair Department Manager Relationship Specialty Start Date End Date Gustavo Leggett MD [facility] [address] [facility] [address] PCP - General Adolescent Medicine 07/14/23 documented as of this encounter
--- OUTSIDE RECORDS SUMMARY | 2025-06-19 03:31 | XMS_ITS | Encounter Summary ---
Author Organization [facility] Address [address] [place] [address] Care Team Providers Care Pvc Loader Name Role Phone Gustavo Leggett MD Primary Care Provider + [phone] Encounter Details Date Type Department Care Team (Late st Contact Info) Description 06/11/2025 Readmission Management [facility] [address] [place] [address] Marlyn Santoro, RN Social History Tobacco Use Types Packs/Day Years Used Date Smoking Tobacco: Never Passive Smoke Exposure: Never Smokeless Tobacco: Never Alcohol Use Standard Drinks/Week Comments No 0 (1 standard drink = 0.6 oz pur e alcohol) [facility] Utilities Answer Date Recorded In the past [...] Brief Depression Severity Measure Score 2 08/09/2023 [facility] [place] [facility] - Occupational Stress [...] as of this encounter Miscellaneous Notes * Outreach Note - Marlyn Santoro RN - 06/11/2025 6:20 PM EDT Prep Survey Flowsheet Row Responses [facility] [place] patient discharged from? [place] Is LACE score less than 10 ? No Eligibility Readm Mgmt Discharge diagnosis Cellulitis Does the patient have one of the following disease processes/diagnoses(primary or secondary)? Other Does the patient have Home health ordered? Yes What is the Home health agency? [facility] Prep survey completed? 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
--- OUTSIDE RECORDS SUMMARY | 2025-06-19 03:31 | XMS_ITS | Encounter Summary ---
Author Organization [facility] Address [address] [place] [address] Care Team Providers Care Food Sales Clerk Name Role Phone Gustavo Leggett MD Primary Care Provider + [phone] Reason for Visit * Reason Onset Date Comments [facility] - [facility] AND RX REFILL 08/12/2020 Encounter Details Date Type Department Care Team (Late st Contact Info) Description 08/12/2020 Telephone [facility] [address] [facility] [address] [place] [address] Tra Gregg PA-C [address] [facility] [address] [place] [address] [facility] - HOME HEALTH AND [...] 9:05 AM EST Office note faxed to [employer] ([phone]). * Telephone Encounter - Betty Ramires MA - 08/12/2020 1:14 PM EST Lex: 02/15/2020 Diazepam 5MG 1954 60 30 [facility] 2 03/09/2020 Diazepam 5MG 1954 60 30 [facility] 2 04/12/2020 Diazepam 5MG 1954 60 30 [facility] 2 05/09/2020 Diazepam 5MG 1954 90 30 [facility] 2 06/10/2020 Diazepam 5MG 1954 60 20 [facility] 2 07/18/2020 Diazepam 5MG 1954 30 15 [facility] 1 * Telephone Encounter - Francisca Jensen [...] HE HAS FOUR LEFT. HIS PHARMACY IS [email or web address] IN [place], [place]. PLEASE ADVISE. SINA CAN BE REACHED AT [phone], ASK FOR BRANDEE OR ABEBE. THE PATIENT CAN BE REACHED AT [phone] THANK YOU! documented in this encounter Plan [...] documented as of this encounter Care Teams Food Sales Clerk Relationship Specialty Start Date End Date Gustavo Leggett MD [address] [facility] [address] [place] [address] PCP - General Adolescent Medicine 07/14/23 documented as of this encounter
--- OUTSIDE RECORDS SUMMARY | 2025-06-19 03:31 | XMS_ITS | Data Portability ---
Author Organization [facility] Address [address] [place] [address] Assessment No assessment recorded. Plan of Treatment Reminders Order Date Submit Date Provider Last Modified By Organization Details Last Modified Time Details Appointments OV NEW 15 025 01:30PM Tyree Baker Jr, MD Not available Not available Not available Lab None record ed. Referral None record ed. Procedures None record ed. Surgeries None record ed. Imaging None record ed. Medication Orders None record ed. Patient TargetsNo targets recorded. Patient InstructionsNo instructions recorded. Reason for Referral None Reported. Results Created Date Observation Date Name Description Value Unit Range Abnormal Flag Note LastModifiedBy Organization Detail LastModifiedTime Result Notes None recorded. Problems Name Problem SNOMED Code Status Onset Date Resolution Date Notes Provider Name and Address Organization Details Recorded Time Wound of skin 368580204 Active 2023 Tessie Blakely addie, MICHELLE - [facility] - [place] & [place] 4 16:15:45 Localized infection of skin AND/OR subcutaneous tissue 069093420 Active 2023 Tessie Blakely null, MICHELLE - [facility] - [place] 4 16:15:59 Acute kidney injury 71135027 Active 2023 Tessie Blakely addie, MICHELLE - [facility] [place] 4 16:16:19 Type 2 diabetes mellitus 49892098 Active 2023 Tessie Blakely addie, MICHELLE - [facility] [place] 4 16:16:31 Hyperlipidemia 52898688 Active 2023 Tessie Blakely addie, [facility] [place] 4 16:16:45 Amputated right lower limb above knee 761157708 Active 2023 Tessie real, MICHELLE PETERSON [facility] & [place] 4 16:17:00 Peripheral vascular disease 448848559 Active 2023 Tessie real, MICHELLE PETERSON [facility] & [place] 4 16:17:21 Coronary arterioscleros is 34790635 Active 2023 Tessie real, MICHELLE PETERSON [facility] & [place] 4 16:17:46 History of migraine 046047589 Active 2023 Tessie real, [facility] [place] 4 16:18:17 Problem Notes None recorded. Medical [...] Not Available Not Available No t Available Basaglar KwikPen U-100 Insulin 100 unit/mL (3 [...] /min 98 % 98 % 96.7 [degF] 027983. 91 g 125/54 mm[Hg] Tessie Blakely [place] - [facility] - [place] & [place] 4 10:06:39 Social History None recorded. Functional Status None recorded. Mental Status None recorded. Family History Nothing Reported. Medical History No medical history recorded. Past Encounters Encounter ID Performer Location Encounter Start Date Encounter Closed Date Diagnosis/Indication Diagnosis SNOMED-CT Code Diagnosis ICD10 Code Diagnosis IMO Codes Diagnosis Note [id number] Radha Zamorano-[place] in, LONG CHAIN DYEING MACHINE OPERATOR [facility] Infectiou s Disease -[address] [place] [address] 08/25/2024 09:56:17 08/25/2024 12:23:58 Cellulitis of left lower limb 6882315905 2751899 L03.116 It is my recommenda tion that the patient be admitted at [facility] via EMS. He will likely need an amputation to resolve this infection. He is not agreeable to this. At the least he will need IV antibiotic s and is unable to do this outpatient because of transporta tion issues. He was treated at [facility] and his surgery was performed by Dr. Faust. All questions answered. This plan was also discussed in detail with Dr. Jaspreet Oneal. Bacterial infection caused by Klebsiella pneumoniae 488926403 B96.1 see above Infection caused by Pseudomonas aeruginosa 93108803 B96.5 see above History of amputation of left foot 3625949795 4915500 Z89.432 s/p left TMA. History of amputation of right lower limb 2088161969 23820 Z89.9 see above Health Concerns Section Related Observation LastModified by Organization Detai ls LastModified Time None Recorded Concern Status LastModified by Organization Details LastModified Time None Recorded Advance Directives Directive None Recorded Payers Insurance Date Sequence Insurance Name Policy Number Policy Person Covered Member ID Person Member ID Guarantor Name 08/29/2024 1 [employer] (MEDICARE REPLACEMENT/ ADVANTAGE - PPO) Vitaly Pool [id number] Vitaly Pool 08/29/2024 1 [employer] - [place] (H[place] Vitaly Shipmanp [id number] Vitaly Shipmanp 09/18/2021 1 [facility] Vitaly Ascencio Corine [id number] Vitaly Silva Pool Notes Date Note Type Note Provider Name and Address Organization Details Recorded Time 08/25/2024 text/html ROS as noted in the HPI patient presents to clinic for referral for left lower extremity cellulitis s/p left TMA. Patient was seen by [facility] podiatry clinic and surgery was performed by Dr. Faust at [facility]. Patient has taken multiple antibiotics with no improvement. Today he presents with a wound vac in place on left LE. He arrives on a stretcher with EMS at side. He is unsure what antibiotic he is currently on. He thinks it is Levofloxacin. he is receiving wound care weekly on mondays. Last cultures grew Klebsiella pneumoniae and pseudomonas aeruginosa. Radha De La Fuente, LONG CHAIN DYEING MACHINE OPERATOR [address], [place], [address], [facility] - [facility] - [place] & [place] 08/25/2024 11:23:29
--- OUTSIDE RECORDS SUMMARY | 2025-06-19 03:31 | XMS_ITS | Encounter Summary ---
[facility] Address [address] [place] [address] Care Team Providers Care Director Counseling Bureau Name Role Phone Gustavo Leggett MD Primary Care Provider + [phone] Encounter Details Date Type Department Care Team (Late st Contact Info) Description 06/13/2025 Readmission Management [facility] [address] [place] [address] Jacob Loza RN Social History Tobacco Use Types Packs/Day Years Used Date Smoking Tobacco: Never Passive Smoke Exposure: Never Smokeless Tobacco: Never Alcohol Use Standard Drinks/Week Comments No 0 (1 standard drink = 0.6 oz pur e alcohol) [facility] Utilities Answer Date Recorded In [...] Brief Depression Severity Measure Score 2 08/09/2023 [facility] [place] of Occupat ional Health - Occupational Stress [...] GED or equivalent No 09/01/2024 Preferred Language Palestinian 09/01/2024 PHQ-2 Answer Date Recorded Patient Health Questionnaire-2 Score 0 09/14/2024 Sex and Gender Information Value Date Recorded Sex Assigned at Not on file Legal Sex Male 1:18 PM EDT Gender Identity Not on file Sexual Orientation Not on file documented as of this encounter Miscellaneous Notes * Outreach Note - Jacob Loza RN - 06/13/2025 4:12 PM EDT Images from the original note were not included. Medical Week 1 Survey Flowsheet Row [facility] the patient have one of the following disease processes/diagnoses(primary or secondary)? Other Week 1 attempt successful? Yes Call start time 1615 Call end time 1620 Discharge diagnosis Cellulitis LLE, gross hematuria / cystitis [Hx right BKA and LLE revascularization with toe amputations, recurrent LLE cellulitis] Person spoke with today (if not patient) and relationship Patient Meds reviewed with patient/caregiver? Yes Does the patient have all medications ordered at discharge? Yes Is the patient taking all medications as directed (includes completed medication regime)? Yes Does the patient have a primary care provider? Yes Does the patient have an appointment with their PCP within 7 days of discharge? Yes Comments regarding PCP Patient reports that his PCP is coming to visit him in home this afternoon Has the patient kept scheduled appointments due by today? N/A What is the Home health agency? [facility] Has home health visited the patient within 72 hours of discharge? Yes Home health comments Patient reports that his HH nurse is coming back tomorrow but has not heard from PT /OT since discharge. Psychosocial issues? No Comments Patient reports wearing a CGM to monitor blood sugar. Did the patient receive a copy of their discharge instructions? Yes Nursing interventions Reviewed instructions with patient What is the patient's perception of their health status since discharge? Improving Is the patient/caregiver able to teach back the hierarchy of who to call/visit for symptoms/problems? PCP, Specialist, Home health nurse, Urgent Care, ED, 911 Yes If the patient is a current smoker, are they able to teach back resources for cessation? Not a smoker Week 1 call completed? Yes Would this patient benefit from a Referral to [facility] Social Work? No Is the patient interested in additional calls from an ambulatory gearcase assembler? No Call end time 1620 JACOB Mei - Registered Nurse documented in this encounter [...] documented as of this encounter Care Teams Director Counseling Bureau Relationship Specialty Start Date End Date Gustavo Leggett MD [facility] [address] [place] [address] PCP - General Adolescent Medicine 07/14/23 documented as of this encounter
--- OUTSIDE RECORDS SUMMARY | 2025-06-19 03:31 | XMS_ITS | Encounter Summary ---
Author Organization Healthcare Address [address] [place] [address] Care Team Providers Care Credit Card Analyst Name Role Phone John Paul Orellana MD Primary Care Provider [phone] Encounter Details Date Type Department Care Team (Late st Contact Info) Description 04/21/2022 Lab Requisition [facility] [address] [place] [address] Delvis Dominguez MD [address] [facility] 7th [facility] [address] [place] [address] Encounter for general adult medical [...] drink first t clarita in the morning (EYE-UI SOFTWARE DEVELOPER) to steady your nerves or to get [...] GENERAL ORDERABLES Final Result [facility] [address] [place] [address] documented in this encounter Visit Diagnoses Diagnosis Encounter for general adult medical examination without abnormal findings documented in this encounter Additional Health Concerns Infection Onset Date Last Indicated Resolved Time MRSA 04/20/2022 05/28/2022 documented as of this encounter Care Teams Credit Card Analyst Relationship Specialty Start Date End Date John Paul Orellana MD [address] [place] [address] PCP - General 01/24/21 documented as of this encounter
--- OUTSIDE RECORDS SUMMARY | 2025-06-19 03:31 | XMS_ITS | Encounter Summary ---
Author Organization [facility] Address [address] [place] [address] Care Team Providers Care Ribbon Blockmaker Name Role Phone John Paul Orellana MD Primary Care Provider [phone] Encounter Details Date Type Department Care Team (Late st Contact Info) Description 08/04/2023 Community Orders Community Practice [address] [place] [address] Shree Anand MD [address] [facility] [address] [place] [address] Parkinsonian features (Primary Dx) Social [...] drink first t clarita in the morning (EYE-MEAT LUGGER) to steady your nerves or to get [...] documented as of this encounter Care Teams Ribbon Blockmaker Relationship Specialty Start Date End Date John Paul Orellana MD [address] [place] [address] PCP - General 01/24/21 documented as of this encounter
--- OUTSIDE RECORDS SUMMARY | 2025-06-19 03:31 | XMS_ITS | Encounter Summary ---
[facility] Address [address] [place] [address] Care Team Providers Care Wheel Alignment Mechanic Name Role Phone Gustavo Leggett MD Primary Care Provider [phone] Reason for Visit * Reason Onset Date Comments HOME HEALTH ORDER 11/13/2020 Encounter Details Date Type Department Care Team (Late st Contact Info) Description 11/13/2020 Telephone [facility] NEUR[facility] [address] [facility] [address] [place] [address] Tyree Tan MD HOME HEALTH [...] 11/14/2020 12:58 PM EST Called Sina at [phone] and there was no answer,simply said not [...] PT Relationship: SELF Best call back number: [phone] What orders are you requesting (i.e. lab [...] documented as of this encounter Care Teams Wheel Alignment Mechanic Relationship Specialty Start Date End Date Gustavo Leggett MD [address] [facility] [address] [place] [address] PCP - General Adolescent Medicine 07/14/23 documented as of this encounter
--- OUTSIDE RECORDS SUMMARY | 2025-06-19 03:31 | XMS_ITS | Encounter Summary ---
[facility] Address [address] [place] [address] Care Team Providers Care Filemaker Developer Name Role Phone Gustavo Leggett MD Primary Care Provider + [phone] Encounter Details Date Type Department Care Team (Latest Contact Info) Description 06/02/2025 Travel Social History Tobacco Use Types Packs/Day Years Used Date Smoking Tobacco: Never Passive Smoke Exposure: Never Smokeless Tobacco: Never Alcohol Use Standard Drinks/Week Comments No 0 (1 standard drink = 0.6 oz pur e alcohol) [facility] Utilities Answer Date Recorded In the past 12 months has [employer] electric, gas, oil, or water company threatened [...] Brief Depression Severity Measure Score 2 08/09/2023 [facility] [place] of Occupat ional Health - Occupational Stress [...] home 05/15 Potentially Unsafe Housing Conditions none 06/02/2025 Family and Community Support Answer Antoine e [...] GED or equivalent No 09/01/2024 Preferred Language Danish 09/01/2024 PHQ-2 Answer Date Recorded Patient Health Questionnaire-2 Score 0 09/14/2024 Sex and Gender Information Value Date Recorded Sex Assigned at Not on file Legal Sex Male 1:18 PM EDT Gender Identity Not on file Sexual Orientation Not on file documented as of this encounter Functional Status * Calculated C-SSRS Risk Score (Lifetime/Recent) Answer Date of Assessment Author No Risk Indicated 06/02/2025 9:33 AM EDT Helena Tan RN * [place] Suicide Severity Rating Scale (Screener/Recent Self-Report) Question Answer Date of Assessment Author 1. Wish to be (Past 1 Month) No 025 9:33 AM EDT Helena Tan RN 2. Non-Specific Active Suici jaylon Thoughts (Past 1 Month) No 06/02/2025 9:33 AM EDT Debora Tan RN 6. 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
--- OUTSIDE RECORDS SUMMARY | 2025-06-19 03:31 | XMS_ITS | Continuity of Care Document ---
Author Organization [facility] Address [address] [place] [address] Care Team Providers Care Customer Associate Name Role Phone John Paul Orellana MD Primary Care Provider [phone] Encounters Date Type Department Care Team Description 05/23/2022 12:45 PM EDT - 05/23/2022 11:59 PM EDT [facility] Encounter [facility] [address] [place] [address] System, Provider Not In Discharge Disposition: Home or Self Care 05/20/2022 3:19 AM EDT - 05/23/2022 2:00 PM EDT Hospital Encounter [facility] 3 Central Intensive Care Unit [address] [place] [address] Luz Kumari MD Knighton, Martha A, MD Acute encephalopathy (Primary Dx); Acute respiratory failure with hypoxia Discharge Disposition: Intermediate Facility 04/13/2022 9:45 AM EDT Office Visit [id number] [place] [address] Cecil Carrillo MD Meningioma (Primary Dx) 04/01/2022 1:12 PM EDT - 04/05/2022 5:41 PM EDT Hospital Encounter [facility] [address] [place] [address] Carter Barajas DO Status epilepticus [...] Father Social History Smoking Status as of 06/19/2025 Tobacco Use Types Packs/Day Years Used Date [...] of28 resultswithin the time period is included. [facility] Glucose Glucometer 139 71 - 139 mg/dL 05/23/2022 11:59 AM EDT [facility] Serum 05/23/2022 11:5 5 AM EDT 05/23/2022 11:59 AM EDT us Enedina Chavis MD LAB BLOOD ORDERABLES Final Result [facility] ([id number]) [address] [place] [address] [facility] [address] [place] [address] * COVID FLU RSV PCR Panel: Reason for Testing: Asymptomatic Transfer to Another Facility for Patient Placement (05/22/2022 3:23 PM EDT) Only the most recent of2 resultswithin the time period is included. [facility] COVID, FLU, RSV Source Nasopharyngeal 05/22/2022 2:27 PM EDT [facility] FLU A Result Not Detected Not Detected 05/22/2022 4:13 PM EDT [facility] FLU B Result Not Detected Not Detected 05/22/2022 4:13 PM EDT [facility] RSV Result Not Detected Not Detected 05/22/2022 4:13 PM EDT [facility] COVID-19 Result Not Detected Not Detected 05/22/2022 4:13 PM EDT [facility] COVID Result Comment (note) This test utilizes [...] and Drug Administration. 05/22/2022 4:13 PM EDT [facility] Reason for Testing ASYMPTOMATIC TRANSFER TO ANOTHER FACILITY FOR PATIENT PLACEMENT 05/22/2022 2:27 PM EDT [facility] Nasopharyngeal 05/22/2022 3: 23 PM EDT 05/22/2022 3:33 PM EDT Enedina Chavis MD MICROBIOLOGY [facility] Final Result [facility] ([id number]) [id number] [facility] [address] [place] [address] [facility] * [place] Modified Barium Swallow (05/22/2022 10:53 [...] 4.5 - 11.0 10*3/uL 05/22/2022 5:03 AM [facility] Red Blood Count 3.24(L) 4.5 - 5.9 10*6/uL 05/22/2022 5:03 AM [facility] Hemoglobin 9.0(L) 13.5 - 17.5 g/dL 05/22/2022 5:03 AM [facility] Hematocrit 28.6(L) 41.0 - 53.0 % 05/22/2022 5:03 AM [facility] Mean Corpuscular Volume 88.3 80.0 - 100.0 fL 05/22/2022 5:03 AM [facility] Mean Corpuscular Hemoglobin 27.8 26.0 - 34.0 pg 05/22/2022 5:03 AM [facility] Mean Corpuscular HGB Conc 31.5 31.0 - 37.0 g/dL 05/22/2022 5:03 AM [facility] Red Cell Distribution Width-CV 13.9 12.0 - 16.8 % 05/22/2022 5:03 AM [facility] Platelet Count 244 140 - 440 10*3/uL 05/22/2022 5:03 AM [facility] Mean Platelet Volume 10.0 8.4 - 12.4 fL 05/22/2022 5:03 AM [facility] Diff Type Hospital CBC w/AutoDiff (arb'U) 05/22/2022 5:03 AM [facility] Neutrophils % 75.4 45 - 80 % 05/22/2022 5:03 AM [facility] Lymphocyte % 14.7(L) 15 - 50 % 05/22/2022 5:03 AM [facility] Monocyte % 6.7 0 - 15 % 05/22/2022 5:03 AM [facility] Eosinophil% 1.5 0 - 7 % 05/22/2022 5:03 AM [facility] BASO% 0.4 0 - 2 % 05/22/2022 5:03 AM [facility] Immature Granulocyte% 1.3(H) 0.0 - 1.0 % 05/22/2022 5:03 AM EDT [facility] Nucleated RBC % 0 0 /100(WBC) 05/22/2022 5:03 AM EDT [facility] Neutrophil Abs 7.09 2.0 - 8.8 10*3/uL 05/22/2022 5:03 AM EDT [facility] Lymphocyte-Absol sauk-suiattle 1.38 0.7 - 5.5 10*3/uL 05/22/2022 5:03 AM EDT [facility] Monocyte Absolute 0.63 0.0 - 1.7 10*3/uL 05/22/2022 5:03 AM EDT [facility] EOS-Absolute 0.14 0.0 - 0.8 10*3/uL 05/22/2022 5:03 AM EDT [facility] Basophil Abs 0.04 0.0 - 0.2 10*3/uL 05/22/2022 5:03 AM EDT [facility] Immature Granulocyte Abs 0.12(H) 0.00 - 0.10 10*3/uL 05/22/2022 5:03 AM T [facility] Whole Blood BLOOD SPECIMEN FROM PATIENT / Unknown 05/22/2022 4:44 AM EDT 05/22/2022 4:52 AM EDT us Enedina Chavis MD LAB BLOOD ORDERABLES Final Result [facility] ([id number]) [address] [place] [address] [facility] [address] [place] [address] * (ABNORMAL) Magnesium (05/22/2022 4:44 AM EDT) Only the most recent of5 resultswithin the time period is included. Magnesium 1.5(L) 1.6 - 2.6 mg/dL 05/22/2022 5:09 AM EDT [facility] Plasma BLOOD SPECIMEN FROM PATIENT / Unknown 05/22/2022 4:44 AM EDT 05/22/2022 4:52 AM EDT us Luz Kumari MD LAB BLOOD ORDERABLES Final Result [facility] ([id number]) [address] [place] [address] [facility] [address] [place] [address] * (ABNORMAL) Basic Metabolic Panel (BMP) (05/22/2022 4:44 AM EDT) Only the most recent of5 resultswithin the time period is included. Sodium 137 136 - 145 mmol/L 05/22/2022 5:10 AM [facility] Comment: (note) Excess protein and/or lipids can falsely decrease sodium levels (pseudo hyponatremia). Potassium 3.9 3.5 - 5.1 mmol/L 05/22/2022 5:10 AM [facility] Chloride 107 98 - 107 mmol/L 05/22/2022 5:10 AM [facility] Comment: (note) Falsely elevated chloride levels can be seen in patients taking medications which contain bromide. Carbon Dioxide 23 22 - 29 mmol/L 05/22/2022 5:10 AM [facility] Anion Gap 7 5 - 13 (arb'U) 05/22/2022 5:10 AM [facility] Comment: (note) Calculation- Na - (Cl + CO2) Glucose 155(H) 71 - 139 mg/dL 05/22/2022 5:10 AM [facility] Comment: (note) Reference range based on inpatient hypo/hyperglycemic treatment levels. A random glucose =/>200 is concerning for poor control. Blood Urea Nitrogen (BUN) 17 8 - 26 mg/dL 05/22/2022 5:10 AM [facility] Creatinine-Bloo d 0.48(L) 0.73 - 1.18 mg/dL 05/22/2022 5:10 AM [facility] BUN/Creatinine Ratio 35.4 RATIO 05/22/2022 5:10 AM [facility] Estimated GFR >60 >60 /1.73 m2 05/22/2022 5:10 AM EDT [facility] Comment: (note) Results do not take into account body mass. Valid for patients 18 to 70 years of age. Estimated GFR if -Lissy n >60 >60 /1.73 m2 05/22/2022 5:10 AM EDT [facility] Comment: (note) Results do not take into account body mass. Valid for patients 18 to 70 years of age. Calcium 7.9(L) 8.4 - 10.2 mg/dL 05/22/2022 5:10 AM EDT [facility] Plasma BLOOD SPECIMEN FROM PATIENT / Unknown 05/22/2022 4:44 AM EDT 05/22/2022 4:52 AM EDT us Enedina Chavis MD LAB BLOOD ORDERABLES Final Result [facility] ([id number]) [address] [id number] [facility] [address] [place] [address] * Echo Doppler 2D Mmode Color Complete (05/21/2022 3:26 PM EDT) 05/21/2022 2:54 PM EDT Narrative [facility] - 05/21/2022 6:45 PM EDT REVIEWING YOUR TEST RESULTS IN [facility] IS NOT A SUBSTITUTE FOR DISCUSSING THOSE RESULTS WITH YOUR HEALTH CARE PROVIDER. PLEASE CONTACT YOUR PROVIDER VIA [facility] TO DISCUSS ANY QUESTIONS OR CONCERNS YOU MAY HAVE REGARDING THESE TEST RESULTS. CARDIOLOGY REPORT FACILITY: [facility] PATIENT NAME/: VITALY CASILLAS 1955 UNIT/AGE/GENDER: AGE: 67 YR GENDER: M UNIT NUMBER: [id number] ACCESSION NUMBER: [id number] DATE OF EXAM: 05/21/2022 14:54 EXAMINATION(S): ECHO DOPPLER 2D MMODE SPECT COLOR COMPLETE FINAL REPORT Procedure Information Procedure type: Echo Proc. sub type: TTE procedure: ECHO DOPPLER 2D MMODE SPECT COLOR COMPLETE. Start date time: 05/21/2022 Blood pressure: 118 / 60 mmHg Contrast medium: Lumason Accession no: [id number] Procedure Staff Referring Physician: Enedina Chaves Research Spec: Kiki Harper Interpreting Physician: [employer] Bennie Montano Clinical Indications Syncope. Physician Conclusions [...] 05/21/2022 REVIEWING YOUR TEST RESULTS IN [facility] IS NOT A SUBSTITUTE FORDISCUSSING THOSE RESULTS WITH YOUR HEALTH CARE PROVIDER. PLEASE CONTACT YOUR PROVIDER VIA [facility] TO DISCUSS ANY QUESTIONS ORCONCERNS YOU MAY HAVE REGARDING THESE TEST RESULTS. CARDIOLOGY REPORT FACILITY: [facility] PATIENT NAME/: VITALY CASILLAS 1955 UNIT/AGE/GENDER: AGE: 67 YR GENDER: M UNIT NUMBER: [id number] ACCESSION NUMBER: [id number] DATE OF EXAM: 05/21/2022 14:54 EXAMINATION(S): ECHO DOPPLER 2D MMODE SPECT COLOR COMPLETE FINAL REPORT ProcedureInformation Procedure type: Echo Proc. sub type: TTE procedure: ECHO DOPPLER 2D MMODE SPECT COLORCOMPLETE. Start date time: 05/21/2022 Bloodpressure: 118 / 60 mmHg Contrast medium: Lumason Accession no: [id number] Procedure Staff Referring Physician: Enedina Chaves Research Spec: Kiki Harper Interpreting Physician: *[employer] Bennie Montano Clinical Indications Syncope. Physician Conclusions [...] CARE PROVIDER. PLEASE CONTACT YOUR PROVIDER VIA [employer] TO DISCUSS ANY QUESTIONS OR CONCERNS YOU MAY HAVE REGARDING THESE TEST RESULTS. RADIOLOGY REPORT FACILITY: [facility] UNIT/AGE/GENDER: J.ICU IN AGE:67 Y SEX:M PATIENT NAME/: VITALY CASILLAS LAYNE 1955 UNIT NUMBER: [id number] ACCESSION NUMBER: [id number] CTA Head CTA Neck Examination Date: 05/21/2022 [...] and Basilar Arteries: Codominant. No significant stenosis. flight operation coordinator: Unremarkable. Superior Cerebellar and PICAs: Patent proximally. [...] - 05/21/2022 REVIEWING YOUR TEST RESULTS IN [facility] IS NOT A SUBSTITUTE FORDISCUSSING THOSE RESULTS WITH YOUR HEALTH CARE PROVIDER. PLEASE CONTACT YOUR PROVIDER VIA [facility] TO DISCUSS ANY QUESTIONS ORCONCERNS YOU MAY HAVE REGARDING THESE TEST RESULTS. RADIOLOGY REPORT FACILITY: [facility] UNIT/AGE/GENDER: J.ICU IN AGE:67 Y SEX:M PATIENT NAME/: VITALY CASILLAS LAYNE 1955 UNIT NUMBER: [id number] ACCESSION NUMBER: [id number] CTA Head CTA Neck Examination Date: 05/21/2022 [...] and Basilar Arteries: Codominant. No significant stenosis. flight operation coordinator: Unremarkable. Superior Cerebellar and PICAs: Patent proximally. [...] M.D.> 05/21/202240 [phone] us Cinthia Snell CANDY SPREADER IMG CT ORDERABLES Final Re sult * CT Angiogram Head (05/21/2022 6:21 AM EDT) Anatomical Region Laterality Modality Head Computed Tomogra phy 05/21/2022 8:35 AM EDT Narrative 05/21/2022 8:41 AM EDT REVIEWING YOUR TEST RESULTS IN [employer] IS NOT A SUBSTITUTE FOR DISCUSSING THOSE RESULTS WITH YOUR HEALTH CARE PROVIDER. PLEASE CONTACT YOUR PROVIDER VIA [employer] TO DISCUSS ANY QUESTIONS OR CONCERNS YOU MAY HAVE REGARDING THESE TEST RESULTS. RADIOLOGY REPORT FACILITY: [facility] UNIT/AGE/GENDER: J.ICU IN AGE:67 Y SEX:M PATIENT NAME/: VITALY CASILLAS LAYNE 1955 UNIT NUMBER: [id number] ACCESSION NUMBER: [id number] CTA Head CTA Neck Examination Date: 05/21/2022 [...] and Basilar Arteries: Codominant. No significant stenosis. flight operation coordinator: Unremarkable. Superior Cerebellar and PICAs: Patent proximally. [...] - 05/21/2022 REVIEWING YOUR TEST RESULTS IN [facility] IS NOT A SUBSTITUTE FORDISCUSSING THOSE RESULTS WITH YOUR HEALTH CARE PROVIDER. PLEASE CONTACT YOUR PROVIDER [facility]IA [facility] TO DISCUSS ANY QUESTIONS ORCONCERNS YOU MAY HAVE REGARDING THESE TEST RESULTS. RADIOLOGY REPORT FACILITY: [facility] UNIT/AGE/GENDER: J.ICU IN AGE:67 Y SEX:M PATIENT NAME/: VITALY CASILLAS LAYNE 1955 UNIT NUMBER: [id number] ACCESSION NUMBER: [id number] CTA Head CTA Neck Examination Date: 05/21/2022 [...] and Basilar Arteries: Codominant. No significant stenosis. flight operation coordinator: Unremarkable. Superior Cerebellar and PICAs: Patent proximally. [...] - 4.7 mg/dL 05/21/2022 5:21 AM EDT [facility] Plasma BLOOD SPECIMEN FROM PATIENT / Unknown 05/21/2022 4:32 AM EDT 05/21/2022 4:56 AM EDT us Enedina Chavis MD LAB BLOOD ORDERABLES Final Result [facility] ([id number]) [address] [place] [address] [facility] [address] [place] [address] * Holter Monitor Placement (05/20/2022 5:53 PM EDT) 05/20/2022 5:12 PM EDT [facility]ative [facility] - 05/22/2022 10:39 PM EDT REVIEWING YOUR TEST RESULTS IN [facility] IS NOT A SUBSTITUTE FOR DISCUSSING THOSE RESULTS WITH YOUR HEALTH CARE PROVIDER. PLEASE CONTACT YOUR PROVIDER VIA [employer] TO DISCUSS ANY QUESTIONS OR CONCERNS YOU MAY HAVE REGARDING THESE TEST RESULTS. CARDIOLOGY REPORT FACILITY: [facility] PATIENT NAME/: VITALY CASILLAS 1955 UNIT/AGE/GENDER: AGE: 67 YR GENDER: M UNIT NUMBER: [id number] ACCESSION NUMBER: [id number] DATE OF EXAM: 05/20/2022 17:12 EXAMINATION(S): HOLTER [...] - 05/22/2022 REVIEWING YOUR TEST RESULTS IN [facility] IS NOT A SUBSTITUTE FORDISCUSSING THOSE RESULTS WITH YOUR HEALTH CARE PROVIDER. PLEASE CONTACT YOUR PROVIDER VIA [employer] TO DISCUSS ANY QUESTIONS ORCONCERNS YOU MAY HAVE REGARDING THESE TEST RESULTS. CARDIOLOGY REPORT FACILITY: [facility] PATIENT NAME/: VITALY CASILLAS 1955 UNIT/AGE/GENDER: AGE: 67 YR GENDER: M UNIT NUMBER: [id number] ACCESSION NUMBER: [id number] DATE OF EXAM: 05/20/2022 17:12 EXAMINATION(S): HOLTER [...] CV CARDIAC SERVICES LEVI COHEN Final Result [facility] * EKG 12 lead (05/20/2022 5:02 PM EDT) 05/20/2022 5:02 PM EDT Narrative [facility] - 05/21/2022 8:39 AM EDT CARDIOLOGY REPORT FACILITY: [facility] PATIENT NAME/: VITALY CASILLAS 1955 UNIT/AGE/GENDER: AGE: 67 YR GENDER: M UNIT NUMBER: [id number] ACCESSION NUMBER: [id number] DATE OF EXAM: 05/20/2022 17:02 EXAMINATION(S): ECG 12-LEAD FINAL REPORT Procedure: ELECTROCARDIOGRAM RESULT Heart Rate 56 P-R Interval 140 ms QRS Interval 110 ms QT Interval 468 ms QTC Interval 452 ms P Jerome 22 deg QRS Jerome 21 deg T Wave Jerome 7 deg DATE: 05/20/2022 17:02 SINUS BRADYCARDIA NONSPECIFIC INTRAVENTRICULAR CONDUCTION DELAY Summary: Abnormal ECG Electronically signed by Dominick Murphy 05/21/2022 08:39 Procedure Note Jeffrey Tan MD - 05/21/2022 CARDIOLOGY REPORT FACILITY: [facility] PATIENT NAME/: VITALY CASILLAS 1955 UNIT/AGE/GENDER: AGE: 67 YR GENDER: M UNIT NUMBER: [id number] ACCESSION NUMBER: [id number] DATE OF EXAM: 05/20/2022 17:02 EXAMINATION(S): ECG 12-LEAD FINAL REPORT Procedure: ELECTROCARDIOGRAM RESULT Heart Rate 56 P-R Interval 140 ms QRS Interval 110 ms QT Interval 468 ms QTC Interval 452 ms P Jerome 22 deg QRS Jerome 21 deg T Wave Jerome 7 deg DATE: 05/20/2022 17:02 SINUS BRADYCARDIA NONSPECIFIC INTRAVENTRICULAR CONDUCTION DELAY Summary: Abnormal ECG Electronically signed by Dominick Murphy 05/21/2022 08:39 Julio Wharton MD ECG ORDERABLES Final Result [facility] * 20 min. EEG routine Normal Sleep (05/20/2022 2:58 PM EDT) Narrative [facility] - 05/20/2022 2:58 PM EDT Tyree Donovan MD 05/20/2022 3:04 PM ADULT ELECTROENCEPHALOGRAM REPORT FACILITY: [facility] AGE/GENDER: 67 yr/o male PATIENT NAME/: Vitaly Casillas 1955 PROCEDURE DATE: 05/20/2022 EXAM# : [id number] CLINICAL INFORMATION: AMS RECORDING CONDITIONS: This is [...] diagnosis of seizures. Tyree Donovan II, MD [facility] Lissette Richardshodaryl DO NEUROLOGY ORDERABLES Fin al Result [facility] * (ABNORMAL) .Urinalysis with microscopic, reflex culture (05/20/2022 6:34 AM EDT) Only the most recent of2 resultswithin the time period is included. Color-Urine Yellow 05/20/2022 7:02 AM [facility] Clarity-Urine Clear 05/20/2022 7:02 AM [facility] Specific [place] Urine 1.034(H) 1.005 - 1.030 (arb'U) 05/20/2022 7:02 AM [facility] Comment:Elevated specific gr avity may be seen when urine contains x ray contrast media, plasma expanders, and/or large amounts of glucose or protein. Correlate specific gravity findings to patient clinical history. pH-Urine 8.5 5.0 - 9.0 (pH) 05/20/2022 7:02 AM [facility] Protein-Urine 600(A) Negative mg/dL 05/20/2022 7:02 AM [facility] Glucose-Urine 50(A) Negative mg/dL 05/20/2022 7:02 AM [facility] Ketone-Urine Negative Negative mg/dL 05/20/2022 7:02 AM [facility] Bilirubin-Urine Negative Negative mg/dL 05/20/2022 7:02 AM [facility] Occult Blood-Urine 1+(A) Negative (arb'U) 05/20/2022 7:02 AM [facility] Nitrite-Urine Negative Negative (arb'U) 05/20/2022 7:02 AM [facility] Urobilinogen-Uri ne Normal Normal (EhrlichU)/ dL 05/20/2022 7:02 AM [facility] Leukocyte Esterase-Urine 25(A) Negative (arb'U) 05/20/2022 7:02 AM [facility] Source-Urine Urine De Los Santos Cath 05/20/2022 5:22 AM [facility] WBC-Urine 40(H) 0 - 3 (HPF) 05/20/2022 7:02 AM [facility] RBC-Urine 45(H) 0 - 2 (HPF) 05/20/2022 7:02 AM [facility] Squamous Epithelial-Urine <1 0 - 4 (HPF) 05/20/2022 7:02 AM [facility] Bacteria-Urine TRACE(A) None Seen (HPF) 05/20/2022 7:02 AM [facility] Mucus-Urine TRACE(A) None Seen (LPF) 05/20/2022 7:02 AM [facility] Transitional Epithelial-Urine <1 0 - 2 (HPF) 05/20/2022 7:02 AM [facility] Urine URINE SPECIMEN / Unknown 05/20/2022 6:34 AM EDT 05/20/2022 6:50 AM EDT us Luz Kumari MD URINE ORDERABLES Becca lynne Result [facility] ([id number]) [address] [place] [address] [facility] [address] [place] [address] * (ABNORMAL) Toxicology Screen, urine (05/20/2022 6:34 AM EDT) Amphetamines-Urine Scrn Negative Negative 05/20/2022 7:04 AM [facility] Comment: Screening cut off 500ng/mL. (note) Testing for medical purposes only. Positive results are not automatically confirmed. This assay has poor sensitivity for methylphenidate (eg Ritalin), a methylphenidate specific assay is needed to monitor compliance with these medications. Barbiturates-Urine Screen POSITIVE(A) Negative 05/20/2022 7:04 AM [facility] Comment: Screening cut off 200ng/mL. (note) Testing for medical purposes only. Positive results are not automatically confirmed. Benzodiazepines-Ur ine Screen POSITIVE(A) Negative 05/20/2022 7:04 AM [facility] Comment: Screening cut off 200ng/mL. (note) Testing for medical purposes only. Positive results are not automatically confirmed. Cannabinoids-Urine Screen Negative Negative 05/20/2022 7:04 AM [facility] Comment: Screening cut off 50ng/mL. (note) Testing for medical purposes only. Positive results are not automatically confirmed. Cocaine-Urine Screen Negative Negative 05/20/2022 7:04 AM [facility] Comment: Screening cut off 300ng/mL. (note) Testing for medical purposes only. Positive results are not automatically confirmed. Opiates-Urine Screen Negative Negative 05/20/2022 7:04 AM [facility] Comment: Screening cut off 300ng/mL. (note) [...] Kumari MD URINE ORDERABLES Becca lynne Result [facility] ([id number]) [address] [place] [address] [facility] [address] [place] [address] * Culture,Urine (05/20/2022 6:34 AM EDT) Special Requests Urine (arb'U) 05/23/2022 1:54 PM EDT [facility] Culture Final no growth 05/21/2022 9:32 AM EDT [facility] Urine 05/20/2022 6:34 AM EDT 05/20/2022 6:50 AM EDT us Luz Kumari MD MICROBIOLOGY - GENERA L ORDERABLES Final Result [facility] [address] [facility] [address] [place] [address] [facility] [address] [facility] [address] [place] [address] * (ABNORMAL) Lactic Acid (05/20/2022 4:33 AM EDT) Lactic Acid 2.2(H) 0.7 - 2.0 mmol/L 05/20/2022 4:38 AM EDT [facility] RT Serum BLOOD SPECIMEN FROM PATIENT / Unknown 05/20/2022 4:33 AM EDT 05/20/2022 4:32 AM EDT us Luz Kumari MD LAB BLOOD ORDERABLES Final Result [facility] [address] [place] [address], [facility] [phone] [facility] [address] [place] [address] * .Partial Thromboplastin Time (05/20/2022 4:33 AM EDT) Only the most recent of3 resultswithin the time period is included. Partial Thromboplastin Time 25.3 25.1 - 36.5 s 05/20/2022 5:06 AM EDT [facility] Comment: (note) Anticoagulants may alter the results [...] BLOOD ORDERABLES Final Result Performing Organization Address City/[facility]/ZIP Co de Phone Number [facility] ([id number]) [address] [place] [address] [address] * Troponin (05/20/2022 4:33 AM EDT) [facility] Troponin 0.012 0.000 - 0.028 ng/mL 05/20/2022 4:55 AM EDT [facility] Comment: (note) Levels >0.028 are greater than the 99th percentile and suggest possible need for clinical correlation and serial testing. Plasma BLOOD SPECIMEN FROM PATIENT / Unknown 05/20/2022 4:33 AM EDT 05/20/2022 4:33 AM EDT Luz Kumari MD LAB BLOOD ORDERABLES Final Result [facility] ([id number]) [address] [place] [address] [address] * (ABNORMAL) Urinalysis (05/20/2022 4:33 AM EDT) Only the most recent of2 resultswithin the time period is included. Color-Urine Light yellow 05/20/2022 5:03 AM [facility] Clarity-Urine Clear 05/20/2022 5:03 AM [facility] Specific [place] Urine 1.038(H) 1.005 - 1.030 (arb'U) 05/20/2022 5:03 AM [facility] Comment:Elevated specific gr avity may be seen when urine contains x ray contrast media, plasma expanders, and/or large amounts of glucose or protein. Correlate specific gravity findings to patient clinical history. pH-Urine 8.0 5.0 - 9.0 (pH) 05/20/2022 5:03 AM [facility] Protein-Urine >600(A) Negative mg/dL 05/20/2022 5:03 AM [facility] Glucose-Urine 50(A) Negative mg/dL 05/20/2022 5:03 AM [facility] Ketone-Urine Negative Negative mg/dL 05/20/2022 5:03 AM [facility] Bilirubin-Uri ne Negative Negative mg/dL 05/20/2022 5:03 AM [facility] Occult Blood-Urine 1+(A) Negative (arb'U) 05/20/2022 5:03 AM [facility] Nitrite-Urine Negative Negative (arb'U) 05/20/2022 5:03 AM [facility] Urobilinogen- Urine Normal Normal (EhrlichU)/ dL 05/20/2022 5:03 AM [facility] [facility] Leukocyte Esterase-Urin e Negative Negative (arb'U) 05/20/2022 5:03 AM [facility] Source-Urine Urine De Los Santos Cath 05/20/2022 3:45 AM [facility] Reflex Microscopic? Microscopic performed 05/20/2022 5:03 AM [facility] RBC-Urine 47(H) 0 - 2 (HPF) 05/20/2022 5:03 AM [facility] WBC-Urine 30(H) 0 - 3 (HPF) 05/20/2022 5:03 AM EDT [facility] Squamous Epithelial-Ur ine <1 0 - 4 (HPF) 05/20/2022 5:03 AM EDT [facility] Bacteria-Urin e TRACE(A) None Seen (HPF) 05/20/2022 5:03 AM EDT [facility] Urine URINE SPECIMEN / Unknown 05/20/2022 4:33 AM EDT 05/20/2022 4:55 AM EDT us Luz Kumari MD URINE ORDERABLES Becca lynne Result [facility] ([id number]) [address] [place] [address] [facility] [address] [place] [address] * Protime-INR (05/20/2022 4:33 AM EDT) Only the most recent of3 resultswithin the time period is included. Prothrombin Time 11.4 10.3 - 13.3 s 05/20/2022 5:06 AM EDT [facility] Comment: (note) Anticoagulants may alter the results of Laboratory Coagulation assays. New-generation anticoagulants such as direct Thrombin inhibitors (Dabigatran/Pradaxa, Argatroban, Bivalrudin) and direct/indirect factor Xa inhibitors (Rivaroxaban/Xarelto,Apixaban/Eliquis, Danaparoid/Orgaran, Fondaparinux/Arixtra) have been shown to affect the results of Laboratory Coagulation assays, creating falsely elevated or decreased values. Correlation with medication history is advised. INR 1.0 INR 05/20/2022 5:06 AM EDT [facility] Comment: INR Therapeutic Ranges: Low Intensity Range: 2.0-3.0 High Intensity Range: 3.0-4.5 Plasma BLOOD SPECIMEN FROM PATIENT / Unknown 05/20/2022 4:33 AM EDT 05/20/2022 4:33 AM EDT us Luz Kumari MD LAB BLOOD ORDERABLES Final Result [facility] ([id number]) [address] [place] [address] [id number] [place] [address] * (ABNORMAL) CK (05/20/2022 4:33 AM EDT) CK 28(L) 30 - 200 U/L 05/20/2022 4:58 AM EDT [facility] Plasma BLOOD SPECIMEN FROM PATIENT / Unknown 05/20/2022 4:33 AM EDT 05/20/2022 4:33 AM EDT Luz Kumari MD LAB BLOOD ORDERABLES Final Result Performing Organization Address City/[facility]/ZIP Co de Phone Number [facility] ([id number]) [address] [place] [address] [facility] [address] [place] [address] * XR Chest 1 Vw (05/20/2022 4:03 AM EDT) Only the most recent of3 resultswithin the time period is included. Anatomical Region Laterality Modality Chest [facility] Radiographic Imaging 05/20/2022 7:1 7 AM EDT Narrative 05/20/2022 7:19 AM EDT REVIEWING YOUR TEST RESULTS IN [facility] IS NOT A SUBSTITUTE FOR DISCUSSING THOSE RESULTS WITH YOUR HEALTH CARE PROVIDER. PLEASE CONTACT YOUR PROVIDER VIA [facility] [employer] TO DISCUSS ANY QUESTIONS OR CONCERNS YOU MAY HAVE REGARDING THESE TEST RESULTS. RADIOLOGY REPORT FACILITY: [facility] UNIT/AGE/GENDER: J.ICU IN AGE:67 Y SEX:M PATIENT NAME/: VITALY CASILLAS 1955 UNIT NUMBER: [id number] ACCESSION NUMBER: [id number] PORTABLE AP CHEST, SINGLE VIEW DATE: 05/20/2022 [...] - 05/20/2022 RE[facility]ING [facility]ULTS [facility] IS NOT A SUBSTITUTE FORDISCUSSING THOSE RESULTS WITH YOUR HEALTH CARE PROVIDER. PLEASE CONTACT YOUR PROVIDER VIA [employer] TO DISCUSS ANY QUESTIONS ORCONCERNS YOU MAY HAVE REGARDING THESE TEST RESULTS. RADIOLOGY REPORT FACILITY: [facility] UNIT/AGE/GENDER: J.ICU IN AGE:67 Y SEX:M PATIENT NAME/: VITALY CASILLAS 1955 UNIT NUMBER: [id number] ACCESSION NUMBER: [id number] PORTABLE AP CHEST, SINGLE VIEW DATE: 05/20/2022 [...] 716 us Luz Kumari MD IMG DIAGNOSTIC HALEY G ORDERABLES Final Result * (ABNORMAL) Arterial Blood Gas (05/20/2022 3:56 AM EDT) Jaspreet Test POSITIVE (arb'U) 05/20/2022 3:57 AM EDT [facility] RT Temperature-AB G 37.0 37.0 Clara 05/20/2022 3:57 AM EDT [facility] RT pH-ABG 7.51(H) 7.35 - 7.45 PH 05/20/2022 3:57 AM EDT [facility] RT PCO2-ABG 38 35 - 48 mm(Hg) 05/20/2022 3:57 AM EDT [facility] RT PO2-ABG 128(H) 83 - 108 mm(Hg) 05/20/2022 3:57 AM EDT [facility] RT HCO3-ABG 30 22 - 30 mmol/L 05/20/2022 3:57 AM EDT [facility] RT BP48-OTJ 31(H) 19 - 24 mmol/L 05/20/2022 3:57 AM EDT [facility] RT Base Excess-ABG 6.7(H) 0.0 - 3.0 mmol/L 05/20/2022 3:57 AM EDT [facility] RT O2 Sat-ABG 100.0(H) 95.0 - 98.0 % 05/20/2022 3:57 AM EDT [facility] RT Whole Blood 05/20/2022 3:56 AM EDT 05/20/2022 3:57 AM EDT us Luz Kumari MD LAB BLOOD ORDERABLES Final Result [facility] [address] [place] [address], [facility] [phone] [facility] [address] [place] [address] * Culture,Blood (05/20/2022 3:53 AM EDT) Only the most recent of2 resultswithin the time period is included. Culture No Growth 05/26/2022 5:54 AM EDT [facility] Blood ARTERIAL LINE SUBMITTED SPECIMEN / Unknown 05/20/2022 3:53 AM EDT 05/20/2022 3:58 AM EDT Comment:Central Line us Luz Kumari MD MICROBIOLOGY - GENERA L ORDERABLES Final Result [facility] [address] [place] [address] [facility] [address] [place] [address] * (ABNORMAL) Comprehensive Metabolic Panel (CMP) (05/20/2022 3:47 AM EDT) Only the most recent of2 resultswithin the time period is included. Sodium 140 136 - 145 mmol/L 05/20/2022 4:18 AM [facility] Comment: (note) Excess protein and/or lipids can falsely decrease sodium levels (pseudo hyponatremia). Potassium 4.0 3.5 - 5.1 mmol/L 05/20/2022 4:18 AM [facility] Chloride 104 98 - 107 mmol/L 05/20/2022 4:18 AM [facility] Comment: (note) Falsely elevated chloride levels can be seen in patients taking medications which contain bromide. Carbon Dioxide 28 22 - 29 mmol/L 05/20/2022 4:18 AM [facility] Anion Gap 8 5 - 13 (arb'U) 05/20/2022 4:18 AM [facility] Comment: (note) Calculation- Na - (Cl + CO2) Glucose 118 71 - 139 mg/dL 05/20/2022 4:18 AM [facility] Comment: (note) Reference range based on inpatient hypo/hyperglycemic treatment levels. A random glucose =/>200 is concerning for poor control. Blood Urea Nitrogen (BUN) 23 8 - 26 mg/dL 05/20/2022 4:18 AM [facility] Creatinine-Blood 0.45(L) 0.73 - 1.18 mg/dL 05/20/2022 4:18 AM [facility] BUN/Creatinine Ratio 51.1 RATIO 05/20/2022 4:18 AM T [facility] Estimated GFR >60 >60 /1.73 m2 05/20/2022 4:18 AM T [facility] Comment: (note) Results do not take into account body mass. Valid for patients 18 to 70 years of age. Estimated GFR if -Turkish >60 >60 /1.73 m2 05/20/2022 4:18 AM T [facility] Comment: (note) Results do not take into account body mass. Valid for patients 18 to 70 years of age. Total Protein 6.2 6.2 - 8.0 g/dL 05/20/2022 4:18 AM EDT [facility] Albumin 3.3 3.2 - 4.6 g/dL 05/20/2022 4:18 AM [facility] Globulin 2.9 1.5 - 4.5 g/dL 05/20/2022 4:18 AM [facility] Albumin/Globulin Ratio 1.1 1.1 - 2.5 RATIO 05/20/2022 4:18 AM [facility] Calcium 9.0 8.4 - 10.2 mg/dL 05/20/2022 4:18 AM [facility] Total Bilirubin 0.3 0.2 - 1.2 mg/dL 05/20/2022 4:18 AM [facility] AST/SGOT 10 5 - 34 U/L 05/20/2022 4:18 AM [facility] ALT/SGPT 20 0 - 55 U/L 05/20/2022 4:18 AM [facility] Alkaline Phosphatase 77 40 - 150 U/L 05/20/2022 4:18 AM [facility] Plasma BLOOD SPECIMEN FROM PATIENT / Unknown 05/20/2022 3:47 AM EDT 05/20/2022 3:53 AM EDT us Luz Kumari MD LAB BLOOD ORDERABLES Final Result [facility] ([id number]) [address] [place] [address] [facility] [address] [place] [address] * Potassium (04/04/2022 12:16 PM EDT) Potassium 3.9 3.5 - 5.1 mmol/L 04/04/2022 12:35 PM EDT [facility] Plasma specimen (specimen) BLOOD SPECIMEN FROM PATIENT / Unknown 04/04/2022 12:16 PM EDT 04/04/2022 12:21 PM EDT us Abiodun Duran MD LAB BLOOD ORDERABLES Final R esult [facility] ([id number]) [address] [place] [address] [facility] [address] [place] [address] * MRI Brain Wo & W Con (04/03/2022 3:37 PM EDT) Anatomical Region Laterality Modality Head [facility] Magnetic Res onance Imaging 04/03/2022 4:11 PM EDT Narrative 04/03/2022 4:25 PM EDT REVIEWING YOUR TEST RESULTS IN [facility] IS NOT A SUBSTITUTE FOR DISCUSSING THOSE RESULTS WITH YOUR HEALTH CARE PROVIDER. PLEASE CONTACT YOUR PROVIDER VIA [facility] TO DISCUSS ANY QUESTIONS OR CONCERNS YOU MAY HAVE REGARDING THESE TEST RESULTS. RADIOLOGY REPORT FACILITY: [facility] UNIT/AGE/GENDER: Tracy.ICU IN AGE:67 Y SEX:M PATIENT NAME/: VITALY CASILLAS 1955 UNIT NUMBER: [id number] ACCESSION NUMBER: [id number] MRI OF THE BRAIN WITH AND WITHOUT [...] 04/03/2022 REVIEWING YOUR TEST RESULTS IN [facility] IS NOT A SUBSTITUTE FORDISCUSSING THOSE RESULTS WITH YOUR HEALTH CARE PROVIDER. PLEASE CONTACT YOUR PROVIDER VIA [facility] TO DISCUSS ANY QUESTIONS ORCONCERNS YOU MAY HAVE REGARDING THESE TEST RESULTS. RADIOLOGY REPORT FACILITY: [facility] UNIT/AGE/GENDER: Tracy.ICU IN AGE:67 Y SEX:M PATIENT NAME/: VITALY CASILLAS 1955 UNIT NUMBER: [id number] ACCESSION NUMBER: [id number] MRI OF THE BRAIN WITH AND WITHOUT [...] demonstrate mild symmetric volume loss. No abnormal [id number] identified within the suggest mesial temporal sclerosis. [...] 1624 1611 1611 us Lissette Flood DO [facility] MRI ORDERABLES Final Result * Procalcitonin (04/02/2022 10:08 AM EDT) Procalcitonin 0.13 0.1 - 0.5 ng/mL [facility] BLOOD SPECIMEN FROM PATIENT / Unknown 04/02/2022 10:08 AM EDT 04/02/2022 10:13 AM EDT David Garcia MD LAB BLOOD ORDERABLES Final Resu lt [facility] ([id number]) [address] [place] [address] [facility] [address] [place] [address] * (ABNORMAL) Culture, Sputum/Gram Stain (04/02/2022 9:57 AM EDT) Gram Stain Few Squamous Epithelial Cells 04/02/2022 10:45 AM EDT [facility] Gram Stain Many WBC's 04/02/2022 10:45 AM EDT [facility] Gram Stain Many Gram Positive Cocci in Pairs and Chains and Clusters 04/02/2022 10:45 AM EDT [facility] Gram Stain Few Gram Negative Bacillus 04/02/2022 10:45 AM EDT [facility] Gram Stain Many Gram Negative Diplococci 04/02/2022 10:45 AM EDT [facility] Culture Methicillin resistant Staphylococcus aureus Heavy Growth(A) [...] ORDERABL ES Final Result [facility] [address] [place] [address] [facility] [address] [place] [address] [facility] [address] [place] [address] * (ABNORMAL) Hemoglobin A1C (04/02/2022 4:22 AM [...] DO LAB BLOOD ORDERABLES Final R esult [facility] [address] [place] [address] [facility] [address] [place] [address] * CT Head Wo Contrast (04/01/2022 6:38 PM EDT) Anatomical Region Laterality Modality Head Computed Tomogra phy 04/01/2022 6:51 PM EDT Narrative 04/01/2022 6:53 PM EDT REVIEWING YOUR TEST RESULTS IN [facility] NOT [facility] FOR DISCUSSING THOSE RESULTS WITH YOUR HEALTH CARE PROVIDER. PLEASE CONTACT YOUR PROVIDER VIA [employer] TO DISCUSS ANY QUESTIONS OR CONCERNS YOU MAY HAVE REGARDING THESE TEST RESULTS. RADIOLOGY REPORT FACILITY: [facility] UNIT/AGE/GENDER: J.ICU IN AGE:67 Y SEX:M PATIENT NAME/: VITALY CASILLAS 1955 UNIT NUMBER: [id number] ACCESSION NUMBER: [id number] DATE: 04/01/2022 HISTORY: Seizure, new-onset, no history [...] Images and Report reviewed and interpreted by: Maagn Alcaraz M.D. <PS><Electronically signed by: Magan Alcaraz M.D.> 04/01/20221851 1850 1850 Procedure Note Magan Alcaraz MD - 04/01/2022 REVIEWING YOUR TEST RESULTS IN [facility] NOT A SUBSTITUTE FORDISCUSSING THOSE RESULTS WITH YOUR HEALTH CARE PROVIDER. PLEASE CONTACT YOUR PROVIDER [employer]IA [employer] TO DISCUSS ANY QUESTIONS ORCONCERNS YOU MAY HAVE REGARDING THESE TEST RESULTS. RADIOLOGY REPORT FACILITY: [facility] UNIT/AGE/GENDER: J.ICU IN AGE:67 Y SEX:M PATIENT NAME/: VITALY CASILLAS 1955 UNIT NUMBER: [id number] ACCESSION NUMBER: [id number] DATE: 04/01/2022 HISTORY: Seizure, new-onset, no history [...] Alcaraz M.D.> 04/01/20221851 1850 1850 [facility] DO [facility] CT ORDERABLES Final Result * XR Abdomen Ap Only (04/01/2022 4:45 PM EDT) Anatomical Region Laterality Modality Abdomen [facility] Radiographic Imaging 04/01/2022 5:19 PM EDT Narrative 04/01/2022 5:23 PM EDT REVIEWING YOUR TEST RESULTS IN [facility] IS NOT A SUBSTITUTE FOR DISCUSSING THOSE RESULTS WITH YOUR HEALTH CARE PROVIDER. PLEASE CONTACT YOUR PROVIDER VIA [facility] TO DISCUSS ANY QUESTIONS OR CONCERNS YOU MAY HAVE REGARDING THESE TEST RESULTS. RADIOLOGY REPORT FACILITY: [facility] UNIT/AGE/GENDER: Tracy.ICU IN AGE:67 Y SEX:M PATIENT NAME/: VITALY CASILLAS 1955 UNIT NUMBER: [id number] ACCESSION NUMBER: [id number] EXAM: XR CHEST 1 VW, XR ABDOMEN [...] by: Nehemias Conley M.D.> 04/01/2022 172 1718 171 Procedure Note Nehemias Conley MD - 04/01/2022 REVIEWING YOUR TEST RESULTS IN [facility] IS NOT A SUBSTITUTE FORDISCUSSING THOSE RESULTS WITH YOUR HEALTH CARE PROVIDER. PLEASE CONTACT YOUR PROVIDER VIA [employer] TO DISCUSS ANY QUESTIONS ORCONCERNS YOU MAY HAVE REGARDING THESE TEST RESULTS. RADIOLOGY REPORT FACILITY: [facility] UNIT/AGE/GENDER: Tracy.ICU IN AGE:67 Y SEX:M PATIENT NAME/: VITALY CASILLAS 1955 UNIT NUMBER: [id number] ACCESSION NUMBER: [id number] EXAM: XR CHEST 1 VW, XR ABDOMEN [...] Acidosis 05/20/2022 Other dysphagia 05/20/2022 Care Teams Customer Associate Relationship Specialty Start Date End Date John Paul Orellana MD [address] [place] [address] PCP - General Internal Medicine 04/03/22
--- OUTSIDE RECORDS SUMMARY | 2025-06-19 03:31 | XMS_ITS | Clinical Summary ---
Author Organization [facility] Address [address] [place] [address] Care Team Providers Care Brick Or Block Maker Name Role Phone John Paul Orellana MD Primary Care Provider [phone] Allergies Active Allergy Reactions Criticality Noted Date [...] without long-term current use of insulin 04/20/2022 Left hip pain 10/28/2021 Cervical spondylosis with myelopathy 08/05/2020 Morbidly obese 06/06/2019 Essential hypertension 04/28/2019 Frequent falls 04/28/2019 Peripheral neuropathy 04/28/2019 Spinal stenosis of lumbar region 04/28/2019 Spinal stenosis of thoracic region 04/28/2019 Overview (04/20/2022): Added automatically from request for surgery [id number] Resolved Problems Problem Noted Date Diagnosed Date Resolved Date Encephalopathy acute 05/28/2022 022 Cellulitis 04/20/2022 04/20/2022 Severe malnutrition 11/21/2021 06/03/20 25 Immunizations Immunization Administration Dates Next Due Influenza, [...] drink first t clarita in the 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) to steady your nerves or to get [...] Date Last Done Comments [facility]-Depression Screening 1955 [facility]-Infant/Child/Adol SDOH Screenings 1955 [facility]- SDOH Screenings 01/19/1972 [facility]-Adult SDOH Screenings 01/19/1972 CT Colonography 1999 Colonoscopy 1999 FIT-DNA 1999 FIT 1999 FOBT 1999 Sigmoidoscopy 1999 [facility]-Colorectal Cancer Screening 1999 [facility]-Zoster Vaccines (2 of 3) 01/06/2017 11/11/2016 [facility]-Pneumococcal Vaccine: 50+ Years (2 of 2 - PCV20 or PCV21) 11/11/2017 11/11/2016 [id number] Vaccine (3 - season) 2025 12/17/2020, 11/20/2020 [facility]-Influenza Vaccine (#1) 2025 08/21/2020, [facility]-RSV Vaccine: 60+ Years or (1 - 1-dose 75+ series) 2029 [facility]-DTaP,Tdap,and Td Vaccines (3 - Td or Tdap) 04/22/2029 04/22/2019, 04/22/2019 [facility]-Diabetes: Hemoglobin A1C Discontinued 04/20/2022, 10/28/2021, 07/12/2020, Additional history exists HPV Vaccines Aged Out No longer eligi [...] Date/Time Associated Diagnosis Comments HEMOGLOBIN A1C Routine 04/20/2022 11:09 AM EDT from Last 3 Months or Most Recently Relevant to Health Maintenance Results * (ABNORMAL) Hemoglobin A1c (04/20/2022 11:09 AM [...] Adults <6.0% Children and Adolescents <7.5% Source: [place] [employer]. Standards of medical care in diabetes,2017. Diabetes Care.2017:40 (suppl 1):S1-S135. HbA1c assay performed by an ion-exchange chromatography method that is certified traceable to the DCCT. 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
--- OUTSIDE RECORDS SUMMARY | 2025-06-19 03:32 | XMS_ITS | Clinical Summary ---
Author Organization [facility] Address [address] [place] [address] Care Team Providers Care Entertainer & Comic Name Role Phone Gustavo Leggett MD Primary Care Provider + [phone] Allergies Active Allergy Reactions Criticality Noted Date Comments Bupropion Unknown (See Comments) Low 03/06/2022 Codeine Nausea Only Low 04/28/2019 Hydrocodone Unknown (See Comments) Low 03/06/2022 Levetiracetam Other (See Comments) Medium 08/01/2023 Acute psychosis Ketorolac Tromethamine Unknown (See Comments) Low 03/06/2022 Medications * This document contains information received from the source organization and may not represent a complete record from that organization. furosemide (LASIX) 40 MG tablet Take 1 tablet by mouth Daily. 0 Active multivitamin with minerals tablet tablet Take [...] Hours. 60 tablet 08/14/2023 9:51 AM EST 3 Active Insulin Glargine (BASAGLAR KWIKPEN) 100 [...] 1 tablet by mouth Daily. 5 Active apixaban (ELIQUIS) 5 MG tablet tablet Take 1 tablet by mouth 2 (Two) Times a Day. Active vitamin C (ASCORBIC ACID) 250 MG tablet Take 2 tablets by mouth Daily. Active methenamine (HIPREX) 1 g tablet Take 1 tablet by mouth 2 (Two) Times a Day With Meals. Active sacubitril-chacha sartan (ENTRESTO) 24-26 MG tablet Take 1 tablet by mouth 2 (Two) Times a Day. Active ondansetron (ZOFRAN) 4 MG tablet Take 1 tablet by mouth Every 8 (Eight) Hours As Needed for Nausea or Vomiting. Active aspirin 81 MG EC tablet Take 1 tablet by mouth Daily. OTC Discontinu ed(*Therap y completed) busPIRone (BUSPAR) 5 MG tablet Take 1 tablet by mouth 3 (Three) Times a Day. Discontinu ed(*Therap y completed) polyethylene glycol (MIRALAX) 17 g packet Take 17 g by mouth Daily As Needed. Discontinu ed(*Therap y completed) oxyCODONE (ROXICODONE) 5 MG immediate release tabletIndicati ons:Cellulitis of left lower extremity,Cell ulitis of left foot Take 1 tablet by mouth Every 4 (Four) Hours As Needed for Moderate Pain for up to 3 days. 18 tablet 06/11/2025 12:55 PM EDT 5 Active Problems Problem Noted Date Diagnosed Date Cellulitis 06/02/2025 Type 2 diabetes mellitus, wi th long-term current use of insulin 08/31/2024 Arteriovenous fistula, acquired 08/31/2024 CHARLIE (acute kidney injury) 02/05/2024 Wound infection 01/15/2024 Type 2 diabetes mellitus wit h diabetic peripheral angiopathy without gangrene, without long-term current use of insulin 01/15/2024 Mixed hyperlipidemia 01/15/2024 S/P AKA (above knee amputation), right Peripheral vascular disease 09/01/2023 Altered mental status 08/03/2023 Left leg cellulitis 07/22/2023 Gangrene 07/07/2023 History of DVT (deep vein thrombosis) 07/07/2023 Sepsis 07/07/2023 Hx of migraine headaches 07/07/2023 Coronary artery disease invo lving [place] coronary artery of [place] heart without angina pectoris 07/07/2023 Pressure injury of buttock, stage 1 06/13/2023 Pressure ulcers of skin of multiple topographic sites 06/13/2023 Overview (06/17/2023): Added automatically from request for surgery [id number] Cellulitis of left foot 06/13/2023 Overview (06/17/2023): Added automatically from request for surgery [id number] Acute encephalopathy 06/21/2022 Adrenal insufficiency 06/21/2022 Dysphagia [...] (05/02/2019): Added automatically from request for surgery [id number] Complicated migraines H/O traumatic brain injury Resolved Problems Problem Noted Date Diagnosed Date Resolved Date Confusion 05/11/2022 05/14/2022 Somnolence 05/09/2022 05/14/2022 Cellulitis 04/28/2019 12/01/2021 Cervical disc herniation 04/28/201901/2020 Overview (05/03/2019): Added automatically from request for surgery [id number] Encounters Date Type Department Care Team Description 06/13/2025 Readmission Management [facility] [address] [place] [address] Kate Loza RN 06/11/2025 Readmission Management [facility] [address] [place] [address] Marlyn Santoro RN 06/02/2025 9:29 AM EDT - 06/11/2025 3:45 PM EDT Hospital Encounter [address] [place] [address] Mary Miller MD Seibert-Jacobs, MD Jace Crowe Meghan Carroll, DO Cordray, Ann, MD Edgar-Zarate, Courtney, MD Howard, Gabriela Kirk, MD Cellulitis of left lower extremity (Primary Dx); Bacterial UTI; Generalized weakness; Displacement of De Los Santos catheter, initial encounter; Type 2 diabetes mellitus [...] foot Discharge Disposition: Home or Self Care 06/02/2025 Travel from Last 3 Months Immunizations Immunization Administration Dates Next Due COVID-19 [...] drink = 0.6 oz pur e alcohol) [facility] Utilities Answer Date Recorded In the past 12 months has [employer] [facility] [employer] electric, gas, oil, or water company threatened [...] Brief Depression Severity Measure Score 2 08/09/2023 [facility] - Occupational Stress [...] GED or equivalent No 09/01/2024 Preferred Language [place] Citizen 09/01/2024 PHQ-2 Answer Date Recorded Patient Health [...] Mass Index 35.94 06/02/2025 9:32 AM EDT Plan of Treatment Health Maintenance [...] 12/2023, 08/01/2023, Additional history exists INFLUENZA VACCINE 04/13/2025 06/13/2022, , 08/21/2020, Additional history exists COVID-19 Vaccine (5 - 2024-2 6 season) 2025 08/25/2022, 06/03/2022, 12/17/2020, Additional history exists TDAP/TD VACCINES (3 - Td or Tdap) 04/22/2029 019, 04/22/2019 HEPATITIS C SCREENING Completed 05/28/2022, 022 Medical Devices Implanted Type Area Primary Care Md Device Identifier Shelf Expiration Date Model / Serial / Lot Fltr Jug Vena Cava Francine Del - [id number] Implanted:Qty: 1 on 05/02/2019 by Pedro Zapien MD at [facility] Implant BARD PERIPHERAL VASCULAR [id number] / / [id number] Description:MRI safety: Non- clinical testing demonstrated that the Francine Vena Cava Filter is MR Conditional. A patient with this implant can be scanned safely immediately after placement under the following conditions: Static magnetic field of 3-Jessica or 1.5-Jessica Spatial gradient magnetic field of 720-Gauss/cm or less Maximum MR system reported [id number] specific absorption rate (CHRISTEL) of 2-W/kg in the normal operating mode Hemost Abs Surgifoam Sz100 8x12 10mm - [id number] Implanted:Qty: 1 on 07/17/2020 by Tyree Tan MD at [facility] Implant Spine Cervical ETHICON DIV OF J AND J 1974 / / Kt Seal Hemos Abs Floseal Matrx Fast/Prep 10ml - [id number] Implanted:Qty: 1 on 07/17/2020 by Tyree Tan MD at [facility] Implant Spine Cervical [employer] 10/08/2021 [id number] / / [id number] Putty Dbm [place] 6cc - [id number] - [id number] Implanted:Qty: 1 on 07/17/2020 by Tyree Tan MD at [facility] Implant Spine Cervical [employer] 06/05/2022 [id number] / [id number] / Federico Lrd Spine Endoskeleton Nanolock Tc 6deg 32i44e4ic Sm - [id number] Implanted:Qty: 1 on 07/17/2020 by Tyree Tan MD at [facility] Implant Spine Cervical [employer] 09/24/2024 [id number] / / [id number] Coil Marlin Emb Fill Complex Sft 2mm 2cm - [id number] Implanted:Qty: 1 on 09/07/2024 by Jared Marcano MD at [facility] Implant PENUMBRA 04/05/2031 [id number] / / [id number] Coil Marlin Emb Fill Complex Jsft 15cm - [id number] Implanted:Qty: 1 on 09/07/2024 by Jared Marcano MD at [facility] Implant [facility] SPALDINGUMBRA 03/21/2030 [id number] / / [id number] Coil Marlin Emb Fill Complex Jsft 8mm 60cm - [id number] Implanted:Qty: 1 on 09/07/2024 by Jared Marcano MD at [facility] Implant [facility] 07/19/2030 [id number] / / [id number] Procedures Procedure Name Priority Date/Time Associated Diagnosis [...] TELEMETRY 06/10/2025 7 :27 AM EDT CBC AND DIFFERENTIAL Routine 06/10/2025 6:15 AM EDT CBC WITH AUTO DIFFERENTIAL Routine 06/10/2025 6:15 AM EDT BASIC METABOLIC PANEL Routine 06/10/2025 6:15 AM EDT POCT GLUCOSE FINGERSTICK Routine 06/09/2025 8:06 PM EDT SCANNED - TELEMETRY 06/09/2025 8 :01 PM EDT POCT GLUCOSE FINGERSTICK Routine 06/09/2025 4:54 PM EDT POCT GLUCOSE FINGERSTICK Routine 06/09/2025 11:51 AM EDT POCT GLUCOSE FINGERSTICK Routine 06/09/2025 8:01 AM EDT CBC AND DIFFERENTIAL Routine 06/09/2025 4:37 AM EDT CBC WITH AUTO DIFFERENTIAL Routine 06/09/2025 4:37 AM EDT BASIC [...] :18 PM EDT SCANNED - TELEMETRY 06/04/2025 4:27 PM EDT POCT GLUCOSE FINGERSTICK Routine 06/04/2025 4:10 PM EDT POCT GLUCOSE FINGERSTICK Routine 06/04/2025 11:07 AM EDT POCT GLUCOSE FINGERSTICK Routine 06/04/2025 7:16 AM EDT CBC AND DIFFERENTIAL Urgent 06/04/2025 5:05 AM EDT CBC WITH AUTO DIFFERENTIAL Urgent 06/04/2025 5:05 AM EDT C-REACTIVE PROTEIN Urgent 06/04/2025 5: 05 AM EDT SEDIMENTATION RATE Urgent 06/04/2025 5: 05 AM EDT RENAL FUNCTION PANEL Urgent 06/04/2025 5:05 AM EDT POCT GLUCOSE FINGERSTICK Routine 06/03/2025 8:15 PM EDT SCANNED - TELEMETRY 06/03/2025 7 :51 PM EDT POCT GLUCOSE FINGERSTICK Routine 06/03/2025 4:24 PM EDT POCT GLUCOSE FINGERSTICK Routine 06/03/2025 11:12 AM EDT SCANNED - TELEMETRY 06/03/2025 8 :28 AM EDT POCT GLUCOSE FINGERSTICK Routine 06/03/2025 7:24 AM EDT CK Urgent 06/03/2025 5:42 AM EDT PHOSPHORUS Urgent 06/03/2025 5:42 AM EDT MAGNESIUM Urgent 06/03/2025 5:42 AM EDT COMPREHENSIVE METABOLIC PANEL Urgent 06/03/2025 5:42 AM EDT CBC WITH AUTO DIFFERENTIAL Urgent 06/03/2025 5:42 AM EDT POCT GLUCOSE [...] CULTURE STAT 06/02/2025 11:37 AM EDT COVID-19/FLUA&B/RSV, PRE BILLING SPECIALIST SWAB IN TRANSPORT MEDIA 1 HR TAT STAT 06/02/2025 11:25 AM EDT WOUND CULTURE STAT 06/02/2025 11:04 AM EDT CBC AND DIFFERENTIAL STAT 06/02/2025 11:03 AM EDT CBC WITH AUTO DIFFERENTIAL STAT 06/02/2025 11:03 AM EDT PROCALCITONIN STAT 06/02/2025 11:03 AM EDT LACTIC ACID, PLASMA STAT 06/02/2025 1 1:03 AM EDT COMPREHENSIVE METABOLIC PANEL STAT 06/02/2025 11:03 AM EDT BLOOD CULTURE STAT 06/02/2025 10:55 AM EDT XR CHEST 1 VW STAT 06/02/2025 10:39 AM EDT SCANNED - TELEMETRY 06/02/2025 9 :44 AM EDT HEMOGLOBIN A1C Routine 09/02/2024 3:35 AM EST LIPID PANEL Routine 08/01/2023 4:42 AM EST from Last 3 Months or Most Recently Relevant to Health Maintenance Results * POC Glucose Once (06/11/2025 11:25 AM EDT) Only the most recent of36 resultswithin the time period is included. Glucose 92 70 - 130 mg/dL 06/11/2025 4:38 PM EDT [facility] Comment:Serial Number: [id number]: [id number] Blood 06/11/2025 11:2 5 AM EDT 06/11/2025 4:38 PM EDT Patricia Varela MD POINT OF CARE TEST ORDER SEB Final Result [facility]
[address] [place] [address], * Telemetry Scan (06/10/2025 6:49 PM EDT) Only the most recent of13 resultswithin the time period is included. [facility] ORDERABLES Final Result * (ABNORMAL) CBC Auto Differential (06/10/2025 6:15 AM EDT) Only the most recent of5 resultswithin the time period is included. WBC 9.63 3.40 - 10.80 10*3/mm3 06/10/2025 7:11 AM EDT [facility] RBC 4.15 4.14 - 5.80 10*6/mm3 06/10/2025 7:11 AM EDT [facility] Hemoglobin 9.8(L) 13.0 - 17.7 g/dL 06/10/2025 7:11 AM EDT [facility] Hematocrit 31.5(L) 37.5 - 51.0 % 06/10/2025 7:[facility] MCV 75.9(L) 79.0 - 97.0 fL 06/10/2025 7:11 [facility] MCH 23.6(L) 26.6 - 33.0 pg 06/10/2025 7:11 AM [facility] MCHC 31.1(L) 31.5 - 35.7 g/dL 06/10/2025 7:11 [facility] RDW 17.2(H) 12.3 - 15.4 % 06/10/2025 7:11 AM [facility] RDW-SD 46.5 37.0 - 54.0 fl 06/10/2025 7:11 AM [facility] MPV 9.4 6.0 - 12.0 fL 06/10/2025 7:11 AM [facility] Platelets 311 140 - 450 10*3/mm3 06/10/2025 7:11 AM [facility] Neutrophil % 71.5 42.7 - 76.0 % 06/10/2025 7:11 AM [facility] Lymphocyte % 13.8(L) 19.6 - 45.3 % 06/10/2025 7:11 AM [facility] Monocyte % 8.0 5.0 - 12.0 % 06/10/2025 7:11 [facility] Eosinophil % 5.6 0.3 - 6.2 % 06/10/2025 7:11 AM [facility] Basophil % 0.6 0.0 - 1.5 % 06/10/2025 7:11 AM [facility] Immature Grans % 0.5 0.0 - 0.5 % 06/10/2025 7:11 AM [facility] Neutrophils, Absolute 6.88 1.70 - 7.00 10*3/mm3 06/10/2025 7:11 AM [facility] Lymphocytes, Absolute 1.33 0.70 - 3.10 10*3/mm3 06/10/2025 7:11 AM EDT [facility] Monocytes, Absolute 0.77 0.10 - 0.90 10*3/mm3 06/10/2025 7:11 AM EDT [facility] Eosinophils, Absolute 0.54(H) 0.00 - 0.40 10*3/mm3 06/10/2025 7:11 AM EDT [facility] Basophils, Absolute 0.06 0.00 - 0.20 10*3/mm3 06/10/2025 7:11 AM EDT [facility] Immature Grans, Absolute 0.05 0.00 - 0.05 10*3/mm3 06/10/2025 7:11 AM EDT [facility] nRBC 0.0 0.0 - 0.2 /100 WBC 06/10/2025 7:11 AM EDT [facility] Blood Venipuncture / Unknown 06/10/2025 6:15 AM EDT 06/10/2025 6:57 AM EDT Patricia Varela MD LAB BLOOD ORDERABLES Fin al Result [facility]
[address] [place] [address], * (ABNORMAL) Basic Metabolic Panel (06/10/2025 6:15 AM EDT) Only the most recent of2 resultswithin the time period is included. Glucose 125(H) 65 - 99 mg/dL 06/10/2025 7:22 AM EDT [facility] BUN 17.3 8.0 - 23.0 mg/dL 06/10/2025 7:22 AM EDT [facility] Creatinine 0.90 0.76 - 1.27 mg/dL 06/10/2025 7:22 AM EDT [facility] Sodium 134(L) 136 - 145 mmol/L 06/10/2025 7:22 AM EDT [facility] Potassium 4.9 3.5 - 5.2 mmol/L 06/10/2025 7:22 AM EDT [facility] Chloride 105 98 - 107 mmol/L 06/10/2025 7:22 AM EDT [facility] CO2 21.2(L) 22.0 - 29.0 mmol/L 06/10/2025 7:22 AM EDT [facility] Calcium 8.7 8.6 - 10.5 mg/dL 06/10/2025 7:22 AM EDT [facility] BUN/Creatinine Ratio 19.2 7.0 - 25.0 06/10/2025 7:22 AM EDT [facility] Anion Gap 7.8 5.0 - 15.0 mmol/L 06/10/2025 7:22 AM EDT [facility] eGFR 91.3 >60.0 mL/min/1.7 3 06/10/2025 7:22 AM EDT [facility] Blood Venipuncture / Unknown 06/10/2025 6:15 AM EDT 06/10/2025 6:56 AM EDT [facility] - 06/10/2025 7:22 AM [...] MD LAB BLOOD ORDERABLES Fin al Result [facility]
[address] [place] [address], * (ABNORMAL) Sedimentation Rate (06/04/2025 5:05 AM EDT) Sed Rate 127(H) 0 - 20 mm/hr 06/04/2025 6:04 AM EDT [facility] Blood Venipuncture / Unknown 06/04/2025 5:05 AM EDT 06/04/2025 5:26 AM EDT us Burke Vogel MD LAB BLOOD ORDERABLES Final Resul t Performing Organization Address City/[facility]/ZIP Co de Phone Number [facility]
[address] [place] [address], * (ABNORMAL) C-reactive Protein (06/04/2025 5:05 AM EDT) Pathologist [facility] C-Reactive Protein 9.09(H) 0.00 - 0.50 mg/dL 06/04/2025 6:06 AM EDT [facility] Blood Venipuncture / Unknown 06/04/2025 5:05 AM EDT 06/04/2025 5:26 AM EDT us Burke Vogel MD LAB BLOOD ORDERABLES Final Resul t Performing Organization Address City/[facility] Co de Phone Number [facility]
[address] [place] [address], * (ABNORMAL) Renal Function Panel (06/04/2025 5:05 AM EDT) Pathologist [facility] Glucose 79 65 - 99 mg/dL 06/04/2025 6:06 AM EDT [facility] BUN 21.8 8.0 - 23.0 mg/dL 06/04/2025 6:06 AM EDT [facility] Creatinine 1.01 0.76 - 1.27 mg/dL 06/04/2025 6:06 AM EDT [facility] Sodium 137 136 - 145 mmol/L 06/04/2025 6:06 AM EDT [facility] Potassium 4.4 3.5 - 5.2 mmol/L 06/04/2025 6:06 AM T [facility] Chloride 108(H) 98 - 107 mmol/L 06/04/2025 6:06 AM T [facility] CO2 19.4(L) 22.0 - 29.0 mmol/L 06/04/2025 6:06 AM T [facility] Calcium 8.3(L) 8.6 - 10.5 mg/dL 06/04/2025 6:06 AM T [facility] Albumin 2.9(L) 3.5 - 5.2 g/dL 06/04/2025 6:06 AM T [facility] Phosphorus 3.3 2.5 - 4.5 mg/dL 06/04/2025 6:06 AM [facility] Anion Gap 9.6 5.0 - 15.0 mmol/L 06/04/2025 6:06 AM T [facility] BUN/Creatinine Ratio 21.6 7.0 - 25.0 06/04/2025 6:06 AM [facility] eGFR 79.5 >60.0 mL/min/1.7 3 06/04/2025 6:06 AM [facility] Blood Venipuncture / Unknown 06/04/2025 5:05 AM EDT 06/04/2025 5:26 AM EDT [facility] - 06/04/2025 6:06 AM EDT [...] not include race as a factor us Zakiya Mccormick DO LAB BLOOD ORDERABLES F inal Result Performing Organization Address [facility] de Phone Number [facility]
[address] [place] [address], * Phosphorus (06/03/2025 5:42 AM EDT) Phosphorus 2.9 2.5 - 4.5 mg/dL 06/03/2025 7:11 AM EDT [facility] Blood Venipuncture / Unknown 06/03/2025 5:42 AM EDT 06/03/2025 6:24 AM EDT Luz Denson MD LAB BLOOD ORDE RABSANTINO Final Result Performing Organization Address [facility] de Phone Number [facility]
[address] [place] [address], * Magnesium (06/03/2025 5:42 AM EDT) Magnesium 1.8 1.6 - 2.4 mg/dL 06/03/2025 7:11 AM EDT [facility] Blood Venipuncture / Unknown 06/03/2025 5:42 AM EDT 06/03/2025 6:24 AM EDT Luz Denson MD LAB BLOOD ORDE RABLES Final Result Performing Organization Address [facility] Co de Phone Number [facility]
[address] [place] [address], * CK (06/03/2025 5:42 AM EDT) Creatine Kinase 75 20 - 200 U/L 06/03/2025 3:05 PM EDT [facility] Blood Venipuncture / Unknown 06/03/2025 5:42 AM EDT 06/03/2025 6:24 AM EDT Alisalaura Yan APRN LAB BLOOD ORDERABLES Becca lynne Result [facility]
[address] [place] [address], * (ABNORMAL) Comprehensive Metabolic Panel (06/03/2025 5:42 AM EDT) Only the most recent of2 resultswithin the time period is included. Glucose 122(H) 65 - 99 mg/dL 06/03/2025 7:11 AM EDT [facility] BUN 23.2(H) 8.0 - 23.0 mg/dL 06/03/2025 7:11 AM EDT [facility] Creatinine 0.95 0.76 - 1.27 mg/dL 06/03/2025 7:11 AM EDT [facility] Sodium 136 136 - 145 mmol/L 06/03/2025 7:11 AM EDT [facility] Potassium 4.6 3.5 - 5.2 mmol/L 06/03/2025 7:11 AM EDT [facility] Chloride 108(H) 98 - 107 mmol/L 06/03/2025 7:11 AM EDT [facility] CO2 19.5(L) 22.0 - 29.0 mmol/L 06/03/2025 7:11 AM EDT [facility] Calcium 8.2(L) 8.6 - 10.5 mg/dL 06/03/2025 7:11 AM EDT [facility] Total Protein 6.2 6.0 - 8.5 g/dL 06/03/2025 7:11 AM EDT [facility] Albumin 3.0(L) 3.5 - 5.2 g/dL 06/03/2025 7:11 AM EDT [facility] ALT (SGPT) 12 1 - 41 U/L 06/03/2025 7:11 AM EDT [facility] AST (SGOT) 18 1 - 40 U/L 06/03/2025 7:11 AM EDT [facility] Alkaline Phosphatase 95 39 - 117 U/L 06/03/2025 7:11 AM EDT [facility] Total Bilirubin 0.2 0.0 - 1.2 mg/dL 06/03/2025 7:11 AM EDT [facility] Globulin 3.2 gm/dL 06/03/2025 7:11 AM EDT [facility] Comment:Calculated Result A/G Ratio 0.9 g/dL 06/03/2025 7:11 AM EDT [facility] BUN/Creatinine Ratio 24.4 7.0 - 25.0 06/03/2025 7:11 AM EDT [facility] Anion Gap 8.5 5.0 - 15.0 mmol/L 06/03/2025 7:11 AM EDT [facility] eGFR 85.6 >60.0 mL/min/1.7 3 06/03/2025 7:11 AM EDT [facility] Blood Venipuncture / Unknown 06/03/2025 5:42 AM EDT 06/03/2025 6:24 AM EDT [facility] - 06/03/2025 7:11 AM [...] factor us Luz Denson MD LAB BLOOD ORDIrma COHEN Final Result [facility]
[address] [place] [address], * (ABNORMAL) Urinalysis, Microscopic Only - Indwelling Urethral Catheter (06/02/2025 12:31 PM EDT) RBC, UA Too Numerous to Count(A) None Seen, 0-2 /HPF 06/02/2025 1:05 PM EDT [facility] WBC, UA Too Numerous to Count(A) None Seen, 0-2 /HPF 06/02/2025 1:05 PM EDT [facility] Bacteria, UA 4+(A) None Seen /HPF 06/02/2025 1:05 PM EDT [facility] Squamous Epithelial Cells, UA Unable to determine due to loaded field(A) None Seen, 0-2 /HPF 06/02/2025 1:05 PM EDT [facility] Hyaline Casts, UA Unable to determine due to loaded field None Seen /LPF 06/02/2025 1:05 PM EDT [facility] Methodology Manual Light Microscopy 06/02/2025 1:05 PM EDT [facility] Urine (Indwelling Urethral Catheter) Collection / Unknown 06/02/2025 12:31 PM EDT 06/02/2025 12:38 PM EDT Mary Miller MD URINE ORDERABLES Final Result [facility]
[address] [place] [address], * (ABNORMAL) Urinalysis With Culture If Indicated - Indwelling Urethral Catheter (06/02/2025 12:31 PMEDT) Color, UA Yellow Yellow, Straw 06/02/2025 12:46 PM EDT [facility] Appearance, UA Turbid(A) Clear 06/02/2025 12:46 PM EDT [facility] pH, UA 8.0 5.0 - 8.0 06/02/2025 12:46 PM EDT [facility] Specific [place], UA 1.019 1.005 - 1.030 06/02/2025 12:46 PM EDT [facility] Glucose, UA Negative Negative 06/02/2025 12:46 PM EDT [facility] Ketones, UA Negative Negative 06/02/2025 12:46 PM EDT [facility] Bilirubin, UA Negative Negative 06/02/2025 12:46 PM EDT [facility] Blood, UA Large (3+)(A) Negative 06/02/2025 12:46 PM EDT [facility] Protein, UA >=300 mg/dL (3+)(A) Negative 06/02/2025 12:46 PM EDT [facility] Leuk Esterase, UA Large (3+)(A) Negative 06/02/2025 12:46 PM EDT [facility] Nitrite, UA Positive(A) Negative 06/02/2025 12:46 PM EDT [facility] Urobilinogen, UA 1.0 E.U./dL 0.2 - 1.0 E.U./dL 06/02/2025 12:46 PM EDT [facility] Urine (Indwelling Urethral Catheter) Collection / Unknown 06/02/2025 12:31 PM EDT 06/02/2025 12:38 PM EDT [facility] - 06/02/2025 12:46 PM EDT In absence of clinical symptoms, the presence of pyuria, bacteria, and/or nitrites on the urinalysis result does not correlate with infection. us Mary Miller MD URINE ORDERABLES Final Result [facility]
[address] [place] [address], * (ABNORMAL) Urine Culture - Urine, Indwelling Urethral Catheter (06/02/2025 12:31 PM EDT) Urine Culture >100,000 CFU/mL Proteus mirabilis ESBL(A) MURRAY 06/06/2025 8:04 AM EDT [facility] Urine Culture >100,000 CFU/mL Escherichia coli(A) MURRAY 06/06/2025 8:04 AM EDT [facility] Urine (Indwelling Urethral Catheter) Collection / Unknown 06/02/2025 12:31 PM EDT 06/02/2025 12:38 PM EDT [facility] - 06/06/2025 8:04 AM EDT Colonization [...] Trimethoprim + Sulfamethoxazole MURRAY >=320 ug/ml: Resistant Mary Miller MD MICROBIOLOGY - GENERAL ORDERAB LES Final Result [facility]
[address] [place] [address], [place] [phone] * ECG 12 Lead Other; Weakness (06/02/2025 [...] Mary Miller MD ECG ORDERABLES Final Result [facility] ECG * CT Abdomen Pelvis With Contrast (06/02/2025 12:01 PM EDT) Anatomical Region Laterality Modality Abdomen, Pelvis N/A Computed Tomogra phy 06/02/2025 12:1 7 PM EDT Impressions 06/02/2025 12:22 PM EDT Shaggy urinary bladder wall thickening concerning for cystitis. Locules of gas within the urinary bladder concerning for a gas-forming organism. Electronically Signed: Feliciano Garcia MD 06/02/2025 12:22 PM EDT Workstation ID: [id number] Narrative 06/02/2025 12:[address] ABDOMEN [...] MD 06/02/2025 12:22 PM EDT Workstation ID: [id number] us Mary Miller MD IMG CT ORDERABLES Final Result * POC Creatinine (06/02/2025 11:45 AM EDT) Only the most recent of2 resultswithin the time period is included. Creatinine 1.10 0.60 - 1.30 mg/dL [facility] Blood 06/02/2025 11:4 5 AM EDT us Mary Miller MD POINT OF CARE TEST ORDERABLES Final Result Performing Organization Address City/[facility]/ZIP Co de Phone Number [facility]
[address] [place] [address], [place] [phone] * Blood Culture - Blood, Hand, Right (06/02/2025 11:37 AM EDT) Only the most recent of2 resultswithin the time period is included. Blood Culture No growth at 5 days 06/07/2025 11:45 AM EDT [facility] Blood Structure of right hand / Unknown Venipuncture / Unknown 06/02/2025 11:37 AM EDT 06/02/2025 11:43 AM EDT us Mary Miller MD MICROBIOLOGY - GENERAL ORDERAB LES Final Result [facility]
[address] [place] [address], [place] [phone] * COVID-19, FLU A/B, RSV PCR 1 HR TAT - Swab, Nasopharynx (06/02/2025 11:25 AM EDT) COVID19 Not Detected Not Detected - Ref. Range [employer]PHE[employer]EXPERT 06/02/2025 12:39 PM EDT [facility] Influenza A PCR Not Detected Not Detected [employer]EXPERT 06/02/2025 12:39 PM EDT [facility] Influenza B PCR Not Detected Not Detected CEP[employer]EXPERT 06/02/2025 12:39 PM EDT [facility] RSV, PCR Not Detected Not Detected CEPHEID GENEXPERT 06/02/2025 12:39 PM EDT [facility] Swab Nasopharyngeal structure / Unknown Collection / Unknown 06/02/2025 11:25 AM EDT 06/02/2025 11:39 AM EDT us Mary Miller MD MICROBIOLOGY - GENERAL ORDERAB LES Final Result [facility]
[address] [place] [address], * (ABNORMAL) Wound Culture - Swab, Leg, Left (06/02/2025 11:04 AM EDT) Wound Culture Light growth (2+) Proteus mirabilis(A) MURRAY 06/07/2025 7:54 AM EDT [facility] Wound Culture Moderate growth (3+) Staphylococcus aureus, MRSA(A) MURRAY 06/07/2025 7:54 AM EDT [facility] Comment: Methicillin resistant Staphylococcus aureus, Patient may be an isolation risk. Wound Culture Light growth (2+) Pseudomonas aeruginosa(A) MURRAY 06/07/2025 7:54 AM EDT [facility] Comment: Gram Stain Occasional WBCs seen 06/07/2025 7:54 AM EDT [facility] Gram Stain Rare (1+) Gram positive cocci in pairs 06/07/2025 7:54 AM EDT [facility] Swab Structure of left lower [...] GENERAL ORDERAB LES Edited Result - Final [facility]
[address] [place] [address], [place] [phone] [facility]
[address] [place] [address], * Procalcitonin (06/02/2025 11:03 AM EDT) Procalcitonin 0.22 0.00 - 0.25 ng/mL 06/02/2025 11:36 AM EDT [facility] Blood Venipuncture / Unknown 06/02/2025 11:03 AM EDT 06/02/2025 11:09 AM EDT Narrative [facility] - 06/02/2025 11:36 AM EDT [...] Day 4 values are available. Refer to http://www.ppqpqx-gxo-jfhxeveqfc.com Change in PCT <=80% A decrease of [...] ORDERABLES Final Res ult Performing Organization Address [facility] Co de Phone Number [facility]
[address] [place] [address], * Lactic Acid, Plasma (06/02/2025 11:03 AM EDT) Lactate 0.9 0.5 - 2.0 mmol/L 06/02/2025 11:27 AM EDT [facility] Comment:Falsely depressed re sults may occur on samples drawn from patients receiving N-Acetylcysteine (NAC) or Metamizole. Blood Venipuncture / Unknown 06/02/2025 11:03 AM EDT 06/02/2025 11:09 AM EDT us Mary Miller MD LAB BLOOD ORDERABLES Final Res ult Performing Organization Address [facility] de Phone Number [facility]
[address] [place] [address], * XR Chest 1 View (06/02/2025 10:39 AM EDT) Anatomical Region Laterality Modality Body N/A Radiographic Martha ging 06/02/2025 10:4 3 AM EDT Impressions 06/02/2025 10:45 AM EDT Impression: Stable appearance of the chest without focal airspace consolidation. Electronically Signed: Rony Monsalve MD 06/02/2025 10:45 AM EDT Workstation ID: [id number] Narrative 06/02/2025 10:45 AM EDT XR CHEST [...] MD 06/02/2025 10:45 AM EDT Workstation ID: [id number] Mary Miller MD IMG DIAGNOSTIC IMAGING ORDERAB LES Final Result * (ABNORMAL) Hemoglobin A1c (09/02/2024 3:35 AM EST) Pathologist [facility] Hemoglobin A1C 7.60(H) 4.80 - 5.60 % 09/02/2024 4:54 AM EST [facility] Blood Venipuncture / Unknown 09/02/2024 3:35 AM EST 09/02/2024 4:29 AM EST Narrative [facility] - 09/02/2024 4:54 AM EST Hemoglobin A1C Ranges: Increased Risk for Diabetes 5.7% to 6.4% Diabetes >= 6.5% Diabetic Goal < 7.0% Alondra Lanza MD LAB BLOOD ORDERABLES Fi nal Result [facility]
[address] [place] [address], * (ABNORMAL) Lipid Panel (08/01/2023 4:42 AM EST) Total Cholesterol 148 0 - 200 mg/dL 08/01/2023 5:39 AM EST [facility] Triglycerides 115 0 - 150 mg/dL 08/01/2023 5:39 AM EST [facility] HDL Cholesterol 37(L) 40 - 60 mg/dL 08/01/2023 5:39 AM [facility] LDL Cholesterol 90 0 - 100 mg/dL 08/01/2023 5:39 AM [facility] VLDL Cholesterol 21 5 - 40 mg/dL 08/01/2023 5:39 AM [facility] LDL/HDL Ratio 2.38 08/01/2023 5:39 AM [facility] Blood Venipuncture / Unknown 08/01/2023 4:42 AM EST 08/01/2023 4:57 AM EST [facility] - 08/01/2023 5:39 AM EST [...] 160-189 mg/dL Very High >189 mg/dL us May Jasbir PAREKH LAB BLOOD ORDERABLES Fi nal Result [facility]
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 ESBL 06/02/2025 06/02/2025 Insurance [employer] PPO Advance Directives Documents on File Type Date Recorded Patient Dividend Deposit Voucher Clerk Expl anation LIVING WILL - SCAN 12/03/2021 8:00 AM MONA NG WILL, BHLEX, 11/24/2021 LIVING WILL - SCAN 11/24/2021 12:29 PM JAMIE ING WILL, BHLEX, 11/24/2021 * CPR (Attempt to Resuscitate) (Latest Code Status on File) Date Activated Date Inactivated Comments 06/02/2025 3:00 PM 06/11/2025 5:51 PM Question Answer Comments Code Status (Patient has no pulse and is not breathing): CPR (Attempt to Resuscitate) Medical Interventions (Patie nt has pulse or is breathing): Full Support Level Of Support Discussed With: Patient * CPR (Attempt to Resuscitate) Date Activated Date Inactivated Comments 08/31/2024 5:18 [...] Of Support Discussed With: Patient Care Teams Entertainer & Comic Relationship Specialty Start Date End Date Gustavo Leggett MD [address] [place] [id number] PCP - General Adolescent Medicine 07/14/23
--- OUTSIDE RECORDS SUMMARY | 2025-06-19 03:32 | XMS_ITS | Clinical Summary ---
Author Organization [employer] ([place], [place], [place], [place]) Address [address] [place] [address] Care Team Providers Care Personal Financial Advisor Name Role Phone Unavailable Primary Care Provider [...]
== END 2025-06-18 23:59 ==
LOC: LAB.DROPOF 06-19 03:28
PROVIDERS: PCP Podiatrist; Visit Provider Podiatrist
DX: E11.621 Type 2 diabetes mellitus with foot ulcer (principal); L97.529 Non-pressure chronic ulcer of other part of left foot with unspecified severity
CPT/HCPCS: 87070; 87205

== ENCOUNTER 2025-08-06 15:30 | Emergency (ER) | payer MEDICARE, SELFPAY ==
--- OUTSIDE RECORDS SUMMARY | 2025-06-02 08:29 | XMS_ITS | Encounter Summary ---
[facility] Address [address] [place] [address] Care Team Providers Care Steam Meter Reader Name Role Phone Gustavo Mehta MD Primary Care Provider + [phone] Reason for Referral * Home Health (Routine) - Pending Review Specialty Diagnoses / Procedures Referred By Ema corw Referred To Contact Home Health Services Diagnoses Type 2 diabetes mellitus with diabetic peripheral angiopathy without gangrene, with long-term current use of insulin Pressure injury of left buttock, stage 1 S/P AKA (above knee amputation), right Type 2 diabetes mellitus with diabetic peripheral angiopathy without gangrene, without long-term current use of insulin Wound infection Peripheral vascular disease Left leg cellulitis Pressure ulcers of skin of multiple topographic sites Procedures NE OFFICE/OUTPATIENT NEW MODERATE MDM 45 MINUTES Patricia Varela MD [address] [place] [address] Phone: tel: fax: Referral ID Status Reason Start Date Expiration Date Visits Requested Visits Authorized [id number] Pending Review Specialty Services Required 06/11/2025 09/10/[phone] Reason for Visit * Reason Comments Headache Back Pain * Auth/Cert (Routine) Specialty Diagnoses / Procedures Referred By Ema crow Referred To Contact Diagnoses Cellulitis Referral ID Status Reason Start Date Expiration Date Visits Re quested Visits Authorized [id number] 1 1 Encounter Details Date Type Department Care Team (Late st Contact Info) Description 06/02/2025 9:29 AM EDT - 06/11/2025 3:45 PM EDT Hospital Encounter [address] [place] [id number] Mary Miller MD [address] [facility] [place] [address] Luz Denson MD [address] [facility] 4th Floor [place], [place] [id number] Zakiya Mccormick, DO [address] [facility] [address] [place], [place] [id number] Stephanie Moser MD [address] [facility] 4th [place] [address] Alondra Lanza MD [address] [address] Patricia Varela MD [address] [place] [address] Cellulitis of left lower extremity (Primary Dx); Bacterial UTI; Generalized weakness; Displacement of Ambrose catheter, initial encounter; Type 2 diabetes mellitus with diabetic peripheral angiopathy without gangrene, with long-term current use of insulin; Pressure injury of left buttock, stage 1; S/P AKA (above knee amputation), right; Type 2 diabetes mellitus with diabetic peripheral angiopathy without gangrene, without long-term current use of insulin; Wound infection; Peripheral vascular disease; Left leg cellulitis; Pressure ulcers of skin of multiple topographic sites; Cellulitis of left foot Discharge Disposition: [place]-Health Care [facility] [place] Social History Tobacco Use Types Packs/Day Years Used Date Smoking Tobacco: Never Passive Smoke Exposure: Never Smokeless Tobacco: Never Alcohol Use Standard Drinks/Week Comments No 0 (1 standard drink = 0.6 oz pur e alcohol) [facility] Utilities Answer Date Recorded In the past 12 months has th e electric, gas, oil, or water company threatened to shut off services in your home? No 09/01/2024 AUDIT-C Answer Date Recorded Q1: How often do you have a drink containing alcohol? Never 06/02/2025 Q2: How many drinks containi ng alcohol do you have on a typical day when you are drinking? Patient does not drink Q3: How often do you have si x or more drinks on one occasion? Never 06/02/2025 Overall Financial Resource Strain (CARDIA) Answe r Date Recorded How hard is it for you to pa y for the very basics like food, housing, medical care, and heating? Somewhat hard 09/14/2024 PHQ-2 Answer Date Recorded Retired PHQ-9: Brief Depression Severity Measure Score 2 08/09/2023 [facility] - Occupational Stress Questionnaire Answer Date Recorded [...] Feels Unsafe at Home or Work/School no 06/02/2025 Feels Threatened by Someone no 05/15 Does Anyone Try to Keep You From Having Contact with Others or Doing Things Outside Your Home? no 06/02/2025 Physical Signs of Abuse Present no 06/02/2025 Housing Stability Answer Date Recorded Current Living Arrangements home 05/15 Potentially Unsafe Housing Conditions none 06/04/2025 Family and Community Support Answer Antoine e [...] Difficulty Concentrating, Remembering or Making Decisions no 06/02/2025 Difficulty Managing Errands Independently no 06/02/2025 Education Answer Date Recorded Do you want help with school or training? For example, starting or completing job training or getting a high school diploma, GED or equivalent No 09/01/2024 Preferred Language Omani 09/01/2024 PHQ-2 Answer Date Recorded Patient Health Questionnaire-2 Score 0 09/14/2024 Sex and Gender Information Value Date Recorded Sex Assigned at Not on file Legal Sex Male 1:18 PM EDT Gender Identity Not on file Sexual Orientation Not on file documented as of this encounter Last Filed Vital Signs Vital Sign Reading Time Taken Comments Blood Pressure 154/82 06/11/2025 11:00 AM EDT Pulse 66 06/11/2025 1:28 AM EDT Temperature 36.6 C (97.9 F) 06/11/2025 11:00 AM EDT Respiratory Rate 18 06/11/2025 11:00 AM EDT Oxygen Saturation 93% 06/11/2025 1:28 AM EDT Inhaled Oxygen Concentration - - Weight 120 kg (265 lb) 06/02/2025 9:32 AM EDT Height 182.9 cm (6') 06/02/2025 9:32 AM EDT Body Mass Index 35.94 06/02/2025 9:32 AM EDT documented in this encounter Functional Status * Calculated C-SSRS Risk Score (Lifetime/Recent) Answer Date of Assessment Author No Risk Indicated 06/02/2025 9:33 AM EDT Helena Tan RN * [place] Suicide Severity Rating Scale (Screener/Recent Self-Report) Question Answer Date of Assessment Author 1. Wish to be (Past 1 Month) No 025 9:33 AM Helena Hodges RN 2. Non-Specific Active Suici jaylon Thoughts (Past 1 Month) No 06/02/2025 9:33 AM EDT Debora Tan RN 6. Suicidal Behavior (Lifetime) No 9:33 AM EDT Helena Tan RN documented as of this encounter Discharge Summaries * Patricia Varela MD - 06/11/2025 11:45 AM EDT Images from the original note were not included. 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 Mixed hyperlipidemia [E78.2] Yes S/P AKA (above knee amputation), right [Z89.611] Not Applicable Type 2 diabetes mellitus with diabetic peripheral angiopathy without gangrene, without long-term current use of insulin [E11.51] Yes Peripheral vascular disease [I73.9] Yes History of DVT (deep vein thrombosis) [Z86.718] Not Applicable Hx of migraine headaches [Z86.69] Not Applicable Cellulitis of left foot [L03.116] Yes Obesity (BMI 30-39.9) [E66.9] Yes Pseudoseizures [F44.5] Yes Complicated migraines [G43.109] Yes H/O traumatic brain injury [Z87.820] Not Applicable Cervical spondylosis with myelopathy [M47.12] Yes Peripheral neuropathy [G62.9] Yes Type 2 diabetes mellitus with foot ulcer, without long-term current use of insulin [E11.621, L97.509] Yes Primary hypertension [I10] Yes Resolved Hospital Problems No resolved problems to display. Hospital Course: Vitaly Pool is a 70 y.o. male with HTN, HLP, CAD s/p stenting, PAD s/p R BKA and LLE revascularization with toe amputations, recurrent LLE cellulitis and wound infections, IDT2DM, obesity, chronic debility, chronic ambrose, seizures admitted for new hematuria and worsening redness of his LLE. Reports he saw ID in [place] a while ago but they said there was nothing more to do at that time. Hefollows with podiatry who sent the po abx. He has strong history of non compliance with follow up as well. PT/OT consulted - recommend SNF but patient refuses. States he does not want further surgical intervention on LEs. ID followed in consultation, managed antibiotics. Recurrent LLE cellulitis Chronic LLE foot wounds - Worsening erythema over several weeks despite oral abx as outpt - Wound cultures 06/02/25 with Proteus species and concern for ESBL by microbiology lab, MRSA, gram-negative cooper - Continue IV Dapto and IV Merrem at direction of ID. Completed course of ABX 06/10/25 - WOC also followed Gross hematuria - resolved Cystitis Chronic ambrose (does not follow Urologist) Air in bladder - Remains afebrile, normal WBC, normal procal and lactate. CRP 9.09. - UA with large blood, WBC, bacteria. Urine Cx growing Proteus mirabilis ESBL, E. Coli - Blood Cx no growth - CT showing signs of cystitis and air in bladder. - FC exchanged in the ED with nonbloody urine return after placement. Gross hematuria may be due torecent exchange (05/21) or infection. - ID followed in consult, appreciate assistance. Patient reports to me that he has discussed supra pubic catheter with PCP previously. Will need outpatient Urology referral PVD s/p R BKA, LLE revascularization and toe amputation - followed with Dr. Marcano - continue plavix - pt adamant he does not want any further amputations T2DM- insulin dependent - resume home meds HTN H/o CAD - Lasix held. Resume upon d/c. Resumed carvedilol 06/03 -- resume Entresto Chronic pain Neuropathy - continue home gabapentin, baclofen Seizures - continue home lamotrigine GERD - PPI Discharge Follow Up Recommendations for outpatient labs/diagnostics: Follow up with PCP within one week Day of Discharge HPI: Denies any issues overnight. Ready to go home today Review of Systems Gen- No fevers, chills CV- No chest pain, palpitations Resp- No cough, dyspnea GI- No N/V/D, abd pain Vital Signs: Temp: [97.8 ??F (36.6 ??C)-98.1 ??F (36.7 ??C)] 97.9 ??F (36.6 ??C) Heart Rate: [58-75] 66 Resp: [18-20] 18 BP: (129-154)/(64-91) 154/82 Physical Exam: Constitutional: No acute distress, awake, alert HENT: NCAT, mucous membranes moist. Respiratory: Clear to auscultation bilaterally, respiratory effort normal Cardiovascular: RRR, no murmurs, rubs, or gallops Gastrointestinal: Positive bowel sounds, soft, nontender, nondistended Musculoskeletal: Right BKA. Left leg with dressing left foot, Psychiatric: Appropriate affect, cooperative Neurologic: Oriented x 3, strength symmetric in all extremities, Cranial Nerves grossly intact to confrontation, speech clear Skin: No rashes. Erythema LLE is improving. No current weeping. Dressing C/D/I. : Ambrose catheter in place with clear urine present Pertinent and/or Most Recent Results LAB RESULTS: Lab 06/10/25 0615 06/09/25436 WBC 9.63 8.12 HEMOGLOBIN 9.8* 9.0* HEMATOCRIT 31.5* 28.8* PLATELETS 311 277 NEUTROS ABS 6.88 4.99 IMMATURE GRANS (ABS) 0.05 0.06* LYMPHS ABS 1.33 1.70 MONOS ABS 0.77 0.81 EOS ABS 0.54* 0.51* MCV 75.9* 75.2* Lab 06/10/25 0615 06/09/25436 SODIUM 134* 137 POTASSIUM 4.9 4.4 CHLORIDE 105 106 CO2 21.2* 21.6* ANION GAP 7.8 9.4 BUN 17.3 17.9 CREATININE 0.90 1.00 EGFR 91.3 80.5 GLUCOSE 125* 140* CALCIUM 8.7 8.6 Brief Urine Lab Results (Last result in the past 365 days) Color Clarity Blood Leuk Est Nitrite Protein CREAT Urine HCG 06/02/25 1231 Yellow Turbid Large (3+) Large (3+) Positive >=300 mg/dL (3+) Microbiology Results (last 10 days) Procedure Component Value - Date/Time Urine Culture - Urine, Indwelling Urethral Catheter [[id number]] (Abnormal) (Susceptibility) Collected: 06/02/25 1231 Lab Status: Final result Specimen: Urine from Indwelling Urethral Catheter Updated: 06/06/25 0804 Urine Culture >100,000 CFU/mL Proteus mirabilis ESBL >100,000 CFU/mL Escherichia coli Narrative: Colonization of the urinary tract without infection is common. Treatment is discouraged unless the patient is symptomatic, , or undergoing an invasive urologic procedure. Recent outcomes data supports the use of pip/tazo in the treatment of susceptible ESBL infections for uncomplicated UTI. Consider use of pip/tazo as a carbapenem-sparing regimen in applicable patients. Susceptibility Proteus mirabilis ESBL MURRAY Ciprofloxacin Resistant Ertapenem Susceptible Gentamicin Susceptible Levofloxacin Resistant Meropenem Susceptible Nitrofurantoin Resistant Piperacillin + Tazobactam Susceptible Trimethoprim + Sulfamethoxazole Resistant Susceptibility Escherichia coli MURRAY Amoxicillin + Clavulanate Susceptible Ampicillin Susceptible Ampicillin + Sulbactam Susceptible Cefazolin (Urine) Susceptible Cefepime Susceptible Ceftazidime Susceptible Ceftriaxone Susceptible Cefuroxime axetil Intermediate Ciprofloxacin Resistant Gentamicin Susceptible Levofloxacin Resistant Nitrofurantoin Susceptible Piperacillin + Tazobactam Susceptible Trimethoprim + Sulfamethoxazole Resistant Blood Culture - Blood, Hand, Right [[id number]] (Normal) Collected: 06/02/25 1137 Lab Status: Final result Specimen: Blood from Hand, Right Updated: 06/07/25 1145 Blood Culture No growth at 5 days COVID-19, FLU A/B, RSV PCR 1 HR TAT - Swab, Nasopharynx [[id number]] (Normal) Collected: 06/02/25 1125 Lab Status: Final result Specimen: Swab from Nasopharynx Updated: 06/02/25 1239 COVID19 Not Detected Influenza A PCR Not Detected Influenza B PCR Not Detected RSV, PCR Not Detected Wound Culture - Swab, Leg, Left [[id number]] (Abnormal) (Susceptibility) Collected: 06/02/25 1104 Lab Status: Edited Result - FINAL Specimen: Swab from Leg, Left Updated: 06/07/25 0754 Wound Culture Light growth (2+) Proteus mirabilis Moderate growth (3+) Staphylococcus aureus, MRSA Comment: Methicillin resistant Staphylococcus aureus, Patient may be an isolation risk. Light growth (2+) Pseudomonas aeruginosa Comment: Gram Stain Occasional WBCs seen Rare (1+) Gram positive cocci in pairs Susceptibility Proteus mirabilis MURRAY Amoxicillin + Clavulanate Susceptible Ampicillin Resistant Ampicillin + Sulbactam Susceptible Cefazolin (Non Urine) Resistant Cefepime Resistant Ceftazidime Intermediate Ceftriaxone Resistant Cefuroxime axetil Resistant Ciprofloxacin Resistant Gentamicin Susceptible Levofloxacin Resistant Piperacillin + Tazobactam Susceptible Tetracycline Resistant Trimethoprim + Sulfamethoxazole Resistant Susceptibility Staphylococcus aureus, MRSA MURRAY Clindamycin Susceptible Daptomycin Susceptible [1] Erythromycin Resistant Oxacillin Resistant Rifampin Susceptible Tetracycline Susceptible Trimethoprim + Sulfamethoxazole Resistant Vancomycin Susceptible [1] Appended report. These results have been appended to a previously final verified report. Susceptibility Pseudomonas aeruginosa MURRAY Cefepime Susceptible Ceftazidime Susceptible Ciprofloxacin Resistant Levofloxacin Resistant Meropenem Susceptible (C) [1] Piperacillin + Tazobactam Susceptible Tobramycin Susceptible [1] Appended report. These results have been appended to a previously final verified report. Susceptibility Comments Proteus mirabilis With the exception of urinary-sourced infections, aminoglycosides should not be used as monotherapy. Staphylococcus aureus, MRSA Daptomycin per Dr. Rivera. Pseudomonas aeruginosa Meropenem requested by Dr Rivera 06/07/25. With the exception of urinary-sourced infections, aminoglycosides should not be used as monotherapy. Blood Culture - Blood, Hand, Right [[id number]] (Normal) Collected: 06/02/25 1055 Lab Status: Final result Specimen: Blood from Hand, Right Updated: 06/07/25 1145 Blood Culture No growth at [address] Abdomen Pelvis With Contrast Result Date: 06/02/2025 CT ABDOMEN PELVIS W CONTRAST Date of Exam: 06/02/2025 11:43 AM EDT Indication: Hematuria, low abdomen pain. Comparison: 06/17/2023 Technique: Axial CT images were obtained of the abdomen and pelvis following the uneventful intravenous administration of iodinated contrast. Reconstructed coronal and sagittal images were also obtained. Automated exposure control and iterative construction methods wereused. FINDINGS: Lung bases: No masses. No consolidation. Liver:No masses. No intrahepatic biliary ductal dilatation. Spleen:No masses. No perisplenic hematoma. Pancreas:No pancreatic masses. No evidence of pancreatitis. Gallbladder and common bile duct:No evidence of cholelithiasis. No evidence of cholecystitis. Adrenal glands:No adrenal masses Kidneys and ureters:No kidney stones. No renal masses.No calculi present within the ureters. Normal caliber ureters. Urinary bladder: Irregular urinary bladder wall thickening concerning for cystitis. Small locules of gas within the urinary bladder maybe due to a gas-forming organism or recent instrumentation. Small bowel:Normal caliber small bowel.Large bowel:No diverticulosis or diverticulitis. No large bowel masses are appreciated Appendix: Normal GENITOURINARY: Normal prostate Ascites or pneumoperitoneum:None. Adenopathy:None present Osseous structures: The proximal femurs are intact. Significant degenerative changes of the hips. The pubic bones are intact. The sacrum and sacroiliac joints are normal. Chronic mild loss of height of T11 and T12. Vacuum disc phenomenon at T10-T11, T11-T12, and L1-L2. Multilevel facet disease. No spondylolysis. Multilevel facet disease. Other findings: IVC filter. Atheromatous disease of the abdominal aorta and visualized branches. Shaggy urinary bladder wall thickening concerning for cystitis. Locules of gas within the urinary bladder concerning for a gas-forming organism. Electronically Signed: Feliciano Garcia MD 06/02/2025 12:22PM EDT Workstation ID: [id number] XR Chest 1 View Result Date: 06/02/2025 XR CHEST 1 VW Date of Exam: 06/02/2025 10:30 AM EDT Indication: Weakness. Comparison: Chest radiograph 09/10/2024. Findings: Enlarged cardiac silhouette, unchanged. Thoracic aortic calcifications. Chronic/senescent changes of the lungs. No distinct airspace consolidation. No sizable pleural effusion. No pneumothorax. Thoracic spondylosis. Impression: Stable appearance of the chest without focal airspace consolidation. Electronically Signed: Rony Monsalve MD 06/02/2025 10:45 AM EDT Workstation ID: [id number] Results for orders placed during the hospital encounter of 08/31/24 Duplex Lower Extremity Art / Grafts - Left CAR 09/01/2024 3:24 PM Interpretation Summary Diffuse calcified atherosclerotic plaque throughout lower extremity, however no significant flow velocity increases or stenoses infrainguinal noted. Diffuse monophasic flow from the external iliac and distally. Consistent with possible aorto/LEE disease. Results for orders placed during the hospital encounter of 08/31/24 Duplex Lower Extremity Art / Grafts - Left CAR 09/01/2024 3:24 PM Interpretation Summary Diffuse calcified atherosclerotic plaque throughout lower extremity, however no significant flow velocity increases or stenoses infrainguinal noted. Diffuse monophasic flow from the external iliac and distally. Consistent with possible aorto/LEE disease. Results for orders placed during the hospital encounter of 08/31/24 Adult Transthoracic Echo Complete W/ Cont if Necessary Per Protocol 09/12/2024 4:10 PM Interpretation Summary Left ventricular systolic function is normal. Calculated left ventricular EF = 52.5% There is a trivial pericardial effusion. The aortic valve exhibits sclerosis. Mitral annular calcification is present. I have personally reviewed the therapy plans: [] PT/OT/ ST Therapy Plans Plan for Follow-up of Pending Labs/Results: Discharge Details Discharge Medications New Medications Instructions Start Date oxyCODONE 5 MG immediate release tablet Commonly known as: ROXICODONE 5 mg, Oral, Every 4 Hours PRN Changes to Medications Instructions Start Date baclofen 10 MG tablet Commonly known as: LIORESAL What changed: when to take this reasons to take this 10 mg, Oral, Every 12 Hours Scheduled carvedilol 3.125 MG tablet Commonly known as: COREG What changed: how much to take 3.125 mg, Oral, 2 Times Daily With Meals Continue These Medications Instructions Start Date apixaban 5 MG tablet tablet Commonly known as: ELIQUIS 5 mg, 2 Times Daily BASAGLAR KWIKPEN 100 UNIT/ML injection pen 56 Units, Nightly clopidogrel 75 MG tablet Commonly known as: PLAVIX 75 mg, Oral, Daily finasteride 5 MG tablet Commonly known as: PROSCAR 5 mg, Oral, Daily folic acid 1 MG tablet Commonly known as: FOLVITE 1 mg, Daily furosemide 40 MG tablet Commonly known as: LASIX 40 mg, Daily gabapentin 100 MG capsule Commonly known as: NEURONTIN 200 mg, 3 Times Daily PRN lamoTRIgine 150 MG tablet Commonly known as: LaMICtal 150 mg, Nightly lamoTRIgine 100 MG tablet Commonly known as: LaMICtal 100 mg, Oral, 2 Times Daily, 100mg AM + 250mg PM methenamine 1 g tablet Commonly known as: HIPREX 1 g, 2 Times Daily With Meals multivitamin with minerals tablet tablet 1 tablet, Daily ondansetron 4 MG tablet Commonly known as: ZOFRAN 4 mg, Oral, Every 8 Hours PRN pantoprazole 40 MG EC tablet Commonly known as: PROTONIX 40 mg, 2 Times Daily sacubitril-valsartan 24-26 MG tablet Commonly known as: ENTRESTO 1 tablet, 2 Times Daily vitamin C 250 MG tablet Commonly known as: ASCORBIC ACID 500 mg, Daily Allergies Allergen Reactions Keppra [Levetiracetam] Other (See Comments) Acute psychosis Bupropion Unknown (See Comments) Codeine Nausea Only Hydrocodone Unknown (See Comments) Ketorolac Tromethamine Unknown (See Comments) Discharge Disposition: Home or Self Care Diet: Hospital: Diet Order Procedures Diet: Regular/House, Diabetic; Consistent Carbohydrate; Fluid Consistency: Thin (IDDSI 0) Standing Status: Standing Number of Occurrences: 1 Diets:: Regular/House Diets:: Diabetic Diabetic Diet:: Consistent Carbohydrate Fluid Consistency:: Thin (IDDSI 0) Activity: Restrictions or Other Recommendations: CODE STATUS: Code Status and Medical Interventions: CPR (Attempt to Resuscitate); Full Support Ordered at: 06/02/25 1500 Code Status (Patient has no pulse and is not breathing): CPR (Attempt to Resuscitate) Medical Interventions (Patient has pulse or is breathing): Full Support Level Of Support Discussed With: Patient No future appointments. Additional Instructions for the Follow-ups that You Need to Schedule Ambulatory Referral to Home Health As directed Face to Face Visit Date: 06/11/2025 Follow-up provider for Plan of Care?: I treated the patient in an acute care facility and will not continue treatment after discharge. Follow-up provider: GUSTAVO MEHTA [[id number]] Reason/Clinical Findings: S/P hospital stay Describe mobility limitations that make leaving home difficult: generalized weakness and debility. Nursing/Therapeutic Services Requested: Correction Physical Therapy Occupational Therapy [facility] orders: Medication education Wound care dressing/changes PT orders: Transfer training Home safety assessment Occupational orders: Home safety assessment Activities of daily living Energy conservation Frequency: 1 Week 1 Discharge Follow-up with PCP As directed Currently Documented PCP: Gustavo Mehta MD PCP Follow Up Details: in one week with PCP Patricia Varela MD 06/11/25 Time Spent on Discharge: I spent 35 minutes on this discharge activity which included: [id number] with the patient, reviewing the data in the system, coordination of the care with the nursing staff as well as consultants, documentation, and entering orders. documented in this encounter Discharge Instructions * Attachments The following attachments cannot be sent through Care Everywhere. * Cellulitis Adult (Omani) documented in this encounter Medications at Time of Discharge apixaban (ELIQUIS) 5 MG tablet tablet Take 1 tablet by mouth 2 (Two) Times a Day. baclofen (LIORESAL) 10 MG tablet Take 1 tablet by mouth Every 12 (Twelve) Hours. 60 tablet 08/14/2023 9:51 AM EST 08/14/2023 carvedilol (COREG) 3.125 MG tablet Take 1 tablet by mouth 2 (Two) Times a Day With Meals. 60 tablet 09/17/2024 10:47 AM EST 09/17/2024 clopidogrel (PLAVIX) 75 MG tablet Take 1 tablet by mouth Daily. 30 tablet 02/05/2024 3:20 PM EDT 02/05/2024 finasteride (PROSCAR) 5 MG tablet Take 1 tablet by mouth Daily. 09/17/2024 folic acid (FOLVITE) 1 MG tablet Take 1 tablet by mouth Daily. gabapentin (NEURONTIN) 100 MG capsule Take 2 capsules by mouth 3 (Three) Times a Day As Needed. Insulin Glargine (BASAGLAR KWIKPEN) 100 UNIT/ML injection pen Inject 56 Units under the skin into the appropriate area as directed Every Night. For 30 days 01/10/2024 lamoTRIgine (LaMICtal) 100 MG tablet Take 1 tablet by mouth 2 (Two) Times a Day. 100mg AM + 250mg PM 07/15/2023 lamoTRIgine (LaMICtal) 150 MG tablet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 refuse that. He was readmitted to [facility] on August 31, 2024 with worsening odor/drainage andredness/pain to the left lower extremity in recent days/weeks. He reports having been taking outpatient Levaquin; prior history MRSA/PSA and ESBL organisms 09/04/24 Dr Marcano. Procedure/CPT?? Codes: RIGHT MAIN LINE ASSEMBLER access - ultrasound guided Aortogram with LEFT lower extremity run-off LEFT PT angioplasty ([id number] Nanocross) LEFT plantar angioplasty ([id number] Nanocross, 2.1m402zz UltraverseRx) LEFT AT angioplasty ([id number] Nanocross, 2.3g300sd UltraverseRx) LEFT DP angioplasty ([id number] Nanocross, 2.4r758wp UltraverseRx) RIGHT MAIN LINE ASSEMBLER closure (Angioseal) 09/07/24 Dr Marcano Procedure/CPT?? Codes: RIGHT MAIN LINE ASSEMBLER access - ultrasound guided Aortogram with LEFT lower extremity run-off LEFT Pr AVF embolization RIGHT MAIN LINE ASSEMBLER closure 09/09/24 moved to ICU overnight with reports of seizure-like activity. Sleepy but awakens, recognizes me and has conversation asking when he can go home, denies specific focal complaints aside from left leg pain. No fever, white blood cell count remains normal. On room air. 09/20/24 antibiotics stopped at discharge, finished daptomycin/Zosyn and follow-up plan had been withDr. Oneal/ Readmitted on June 02, 2025, seen by Dr. Vogel. He developed generalized weakness with hematuria with chronic Ambrose catheter, worsening redness to the left lower leg and empiric antibiotics reinitiated with daptomycin/Zosyn. Subsequent adjustment to daptomycin/Merrem with concern for mixed culture including ESBL species per microbiology 06/09/25 room air; no new redness; left lower extremity pain which is dull at present, worse with manipulation, generally better with pain meds and 2 out of 10 in severity. Chronic Ambrose catheter No fevers chills or sweats. No headache photophobia or neck stiffness. No shortness of breath coughor hemoptysis. no diarrhea. no flank pain. no hemodynamic stable per nursing Past Medical History: Diagnosis Date Anemia Cellulitis Diabetes mellitus Frequent falls History of DVT (deep vein thrombosis) Hyperlipidemia Hypertension Migraines Myocardial infarction Peripheral neuropathy Pneumonia Spinal stenosis Wears dentures FULL Wears glasses Past Surgical History: Procedure Laterality Date ABOVE KNEE AMPUTATION Right AMPUTATION DIGIT Left 01/28/2024 Procedure: SECOND AND THIRD TOE AMPUTATION LEFT; Surgeon: Cecil Buenrostro Jr., MD; Location: [facility] OR; Service: Orthopedics; Laterality: Left; ANTERIOR CERVICAL DISCECTOMY W/ FUSION Bilateral 07/17/2020 Procedure: Cervical discectomy anterior with fusion C3-4; Surgeon: Tyree Tan MD; Location: [facility]; Service: Neurosurgery; Laterality: Bilateral; AORTOGRAM N/A 01/26/2024 Procedure: ABDOMINAL AORTIC ANGIOGRAM, LLE ANGIOGRAM, LEFT ANTERIOR TIBIAL ATHERECTOMY, LEFT ANTERIOR TIBIAL ANGIOPLASTY; Surgeon: Archie Olvera MD; Location: [facility]; Service: Vascular; Laterality: N/A; CONTRAST: 50 ML, FT: 2 MIN 54 SEC, DOSE: 66 MGY. BACK SURGERY FOR DISC HERNIATION CARDIAC CATHETERIZATION CARDIAC CATHETERIZATION N/A 09/04/2024 Procedure: Peripheral angiography - Left lower extremity angio - Right femoral access; Surgeon: Jared Marcano MD; Location: [facility] LOC[facility]; Service: Peripheral Vascular; Laterality: N/A; CORONARY ANGIOPLASTY WITH STENT PLACEMENT stent x 1 INCISION AND DRAINAGE FOOT Left 06/17/2023 Procedure: LEFT FOOT DEBRIDEMENT WOUND VACUUM ASSISTED CLOSURE; Surgeon: Cecil Buenrostro Jr., MD;Location: [facility] OR; Service: Orthopedics; Laterality: Left; INCISION AND DRAINAGE LEG Left 07/25/2023 Procedure: INCISION AND DRAINAGE HEEL, WOUND VAC; Surgeon: Cecil Buenrostro Jr., MD; Location: [facility]; Service: Orthopedics; Laterality: Left; INTERVENTIONAL RADIOLOGY PROCEDURE N/A 05/02/2019 Procedure: IVC FILTER PLACEMENT; Surgeon: Pedro Zapien MD; Location: [facility] LOCATION; Service: Interventional Radiology INTERVENTIONAL RADIOLOGY PROCEDURE Left 09/07/2024 Procedure: LEFT peroneal arteriovenous fistula embolization - Right femoral access; Surgeon: Jared Marcano MD; Location: [facility] LOC[facility]; Service: Cardiovascular; Laterality: Left; Please coordinate with Gautam Patel ([facility]) [phone] who will bring coils LUMBAR DISCECTOMY N/A 05/03/2019 Procedure: THORACIC LAMINECTOMY T11-12; Surgeon: Tyree Tna MD; Location: [facility] OR; Service: Neurosurgery Pediatric History Patient Parents Not on file Other Topics Concern Not on file Social History Narrative Not on file family history includes Alcohol abuse in his father. Allergies Allergen Reactions Keppra [Levetiracetam] Other (See Comments) Acute psychosis Bupropion Unknown (See Comments) Codeine Nausea Only Hydrocodone Unknown (See Comments) Ketorolac Tromethamine Unknown (See Comments) Medication: Current Facility-Administered Medications Medication Dose Route Frequency Provider Last Rate Last Admin acetaminophen (TYLENOL) tablet 650 mg 650 mg Oral Q4H PRN Luz Denson MD 650 mg at 06/02/25 1625 apixaban (ELIQUIS) tablet 5 mg 5 mg Oral BID Zakiya Mccormick DO 5 mg at 06/08/252113 baclofen (LIORESAL) tablet 10 mg 10 mg Oral Q12H Luz Denson MD 10 mg at 06/08/252113 sennosides-docusate (PERICOLACE) 8.6-50 MG per tablet 2 tablet 2 tablet Oral BID PRN Luz Denson MD And polyethylene glycol (MIRALAX) packet 17 g 17 g Oral Daily PRN Luz Denson MD And bisacodyl (DULCOLAX) EC tablet 5 mg 5 mg Oral Daily PRN Luz Denson MD And bisacodyl (DULCOLAX) suppository 10 mg 10 mg Rectal Daily PRN Luz Denson MD Calcium Replacement - Follow Nurse / BPA Driven Protocol Not Applicable PRN Luz Denson MD carvedilol (COREG) tablet 3.125 mg 3.125 mg Oral BID With Meals Zakiya Mccormick DO 3.125 mg at 06/08/25 1750 clopidogrel (PLAVIX) tablet 75 mg 75 mg Oral Daily Luz Denson MD 75 mg at 06/08/25 0946 DAPTOmycin (CUBICIN) 550 mg in sodium chloride 0.9 % 50 mL IVPB 6 mg/kg (Adjusted) Intravenous [id number] Parham MD 100 mL/hr at 06/08/25 0947 550 mg at 06/08/25946 dextrose (D50W) (25 g/50 mL) IV injection 25 g 25 g Intravenous Q15 Min PRN Luz Denson MD dextrose (GLUTOSE) oral gel 15 g 15 g Oral Q15 Min PRN Luz Denson MD finasteride (PROSCAR) tablet 5 mg 5 mg Oral Daily Zakiya Mccormick DO 5 mg at 06/08/25945 folic acid (FOLVITE) tablet 1 mg 1 mg Oral Daily Luz Denson MD 1 mg at 06/08/25945 [Held by provider] furosemide (LASIX) tablet 40 mg 40 mg Oral Daily Luz Holt MD gabapentin (NEURONTIN) capsule 200 mg 200 mg Oral TID Luz Denson MD 200 mg at06/08/252113 glucagon (GLUCAGEN) injection 1 mg 1 mg Intramuscular Q15 Min PRN Luz Holt MD insulin glargine (LANTUS, SEMGLEE) injection 25 Units 25 Units Subcutaneous Nightly Luz Denson MD 25 Units at 06/08/252113 Insulin Lispro (humaLOG) injection 2-7 Units 2-7 Units Subcutaneous 4x Daily AC & at Bedtime Luz Denson MD 2 Units at 06/08/25 175 lamoTRIgine (LaMICtal) tablet 100 mg 100 mg Oral Daily Luz Denson MD 100 mg at 06/08/25945 lamoTRIgine (LaMICtal) tablet 250 mg 250 mg Oral Nightly Luz Denson MD 250 mgat 06/08/252113 Magnesium Standard Dose Replacement - Follow Nurse / BPA Driven Protocol Not Applicable PRN Luz Denson MD melatonin tablet 5 mg 5 mg Oral Nightly Luz Denson MD 5 mg at 06/08/252113 meropenem (MERREM) 500 mg in sodium chloride 0.9 % 100 mL MBP 500 mg Intravenous Q6H Britton Flor MD 500 mg at 06/09/25 0330 morphine injection 1 mg 1 mg Intravenous Q4H PRN Patricia Varela MD 1 mg at 06/09/25 0030 multivitamin with minerals 1 tablet 1 tablet Oral Daily Luz Denson MD 1 tablet at 06/08/25 0946 nitroglycerin (NITROSTAT) SL tablet 0.4 mg 0.4 mg Sublingual Q5 Min PRN Luz Holt MD ondansetron ODT (ZOFRAN-ODT) disintegrating tablet 4 mg 4 mg Oral Q4H PRN Najma Perez PA Or ondansetron (ZOFRAN) injection 4 mg 4 mg Intravenous Q6H PRN Najma Perez PA 4 mg at 06/07/25 0914 oxyCODONE (ROXICODONE) immediate release tablet 5 mg 5 mg Oral Q4H PRN Patricia Varela MD 5 mg at 06/09/25 0654 pantoprazole (PROTONIX) EC tablet 40 mg 40 mg Oral BID Luz Denson MD 40 mg at06/08/25 2114 Phosphorus Replacement - Follow Nurse / BPA Driven Protocol Not Applicable PRN Luz Denson MD Potassium Replacement - Follow Nurse / BPA Driven Protocol Not Applicable PRLuz hO MD [Held by provider] sacubitril-valsartan (ENTRESTO) 24-26 MG tablet 1 tablet 1 tablet Oral BID Patricia Varela MD sodium chloride 0.9 % flush 10 mL 10 mL Intravenous Q12H Luz Denson MD 10 mL at 06/08/25 2118 sodium chloride 0.9 % flush 10 mL 10 mL Intravenous PRN Luz Denson MD 10 mL at 06/05/25 1746 sodium chloride 0.9 % infusion 40 mL 40 mL Intravenous PRN Luz Denson MD Antibiotics: Anti-Infectives (From admission, onward) Ordered Dose/Rate Route Frequency Start Stop 06/06/25 0759 piperacillin-tazobactam (ZOSYN) 3.375 g IVPB in 100 mL NS MBP (CD) Status: Discontinued Ordering Provider: Britton Flor MD 3.375 g over 4 Hours Intravenous Every 8 Hours 06/06/25 1700 06/06/25 0803 06/06/25 0759 piperacillin-tazobactam (ZOSYN) 3.375 g IVPB in 100 mL NS MBP (CD) Status: Discontinued Ordering Provider: Britton Flor MD 3.375 g over 30 Minutes Intravenous Once 06/06/25 0900 06/06/25 0803 06/06/25 0803 meropenem (MERREM) 500 mg in sodium chloride 0.9 % 100 mL MBP Status: Discontinued Ordering Provider: Britton Flor MD 500 mg over 30 Minutes Intravenous Once 06/06/25 0900 06/06/25 0805 06/06/25 0803 meropenem (MERREM) 500 mg in sodium chloride 0.9 % 100 mL MBP Ordering Provider: Britton Flor MD 500 mg over 3 Hours Intravenous Every 6 Hours 06/06/25 0900 06/13/25 0859 06/04/25 1329 meropenem (MERREM) 500 mg in sodium chloride 0.9 % 100 mL MBP Status: Discontinued Ordering Provider: Britton Flor MD 500 mg over 3 Hours Intravenous Every 6 Hours 06/04/25 2100 06/06/25 0759 06/04/25 1329 meropenem (MERREM) 500 mg in sodium chloride 0.9 % 100 mL MBP Ordering Provider: Britton Flor MD 500 mg over 30 Minutes Intravenous Once 06/04/25 1415 06/04/25 1535 06/03/25 0707 DAPTOmycin (CUBICIN) 550 mg in sodium chloride 0.9 % 50 mL IVPB Ordering Provider: Britton Flor MD 6 mg/kg ?? 94.6 kg (Adjusted) 100 mL/hr over 30 Minutes Intravenous Every 24 Hours 06/03/25 0900 06/13/25 0859 06/02/25 1522 Linezolid (ZYVOX) 600 mg 300 mL Status: Discontinued Ordering Provider: Luz Denson MD 600 mg 300 mL/hr over 60 Minutes Intravenous Every 12 Hours 06/03/25 0400 06/03/25 0707 06/02/25 1523 piperacillin-tazobactam (ZOSYN) 4.5 g IVPB in 100 mL NS MBP (CD) Status: Discontinued Ordering Provider: Luz Denson MD 4.5 g over 4 Hours Intravenous Every 8 Hours 06/02/25199906/04/25 1329 06/02/25 1341 Linezolid (ZYVOX) 600 mg 300 mL Ordering Provider: Mary Miller MD 600 mg 300 mL/hr over 60 Minutes Intravenous Once 06/02/25 1357 06/02/25 1741 06/02/25 1338 vancomycin 2500 mg/500 mL 0.9% NS IVPB ([facility]) Status: Discontinued Ordering Provider: Mary Miller MD 20 mg/kg ?? 120 kg over 150 Minutes Intravenous Once 06/02/25 1354 06/02/25 1341 06/02/25 1338 piperacillin-tazobactam (ZOSYN) 3.375 g IVPB in 100 mL NS MBP (CD) Ordering Provider: Mary Miller MD 3.375 g over 30 Minutes Intravenous Once 06/02/25 1354 06/02/25 1604 Review of Systems 06/09/25 Constitutional-- No Fever, chills or sweats. Appetite good, and no malaise. Has fatigue. Heent-- No new vision, hearing or throat complaints. No epistaxis or oral sores. Denies odynophagiaor dysphagia. No flashers, floaters or eye pain. No odynophagia or dysphagia. No headache, photophobia or neck stiffness. CV-- No chest pain, palpitation or syncope Resp-- No SOB/cough/Hemoptysis GI- No nausea, vomiting, or diarrhea. No hematochezia, melena, or hematemesis. Denies jaundice or chronic liver disease. -- see above Lymph- no swollen lymph nodes in neck/axilla or groin. Heme- No active bruising or bleeding MS-- no swelling or pain in the bones or joints of arms/legs. No new back pain. Neuro-- No acute focal weakness or numbness in the arms or legs. No seizures.chronically debilitated Full 12 point review of systems reviewed and negative otherwise for acute complaints, except for above Physical Exam: Vital Signs BP 159/79 (BP Location: Right arm, Patient Position: Lying) Pulse 66 Temp 98 ??F (36.7 ??C) (Oral) Resp 18 Ht 182.9 cm (72 ) Wt 120 kg (265 lb) SpO2 93% BMI 35.94 kg/m?? GENERAL: Awake , in no acute distress. Chronically debilitated HEENT: Normocephalic, atraumatic. No conjunctival injection. No icterus. Oropharynx clear without evidence of thrush or exudate. No evidence of periodontal disease. NECK: Supple without nuchal rigidity. No mass. HEART: RRR; No murmur, rubs, gallops. LUNGS: Clear to auscultation bilaterally without wheezing, rales, rhonchi. Normal respiratory effort. Nonlabored. No dullness. ABDOMEN: Soft, nontender, nondistended. Positive bowel sounds. No rebound or guarding. NO mass or HSM. EXT: see below MSK: FROM without joint effusions noted arms/legs. SKIN: Warm and dry without cutaneous eruptions on Inspection/palpation. NEURO: Oriented to PPT. Right BKA noted Left lower leg with vague erythema from knee to foot, wound on the dorsal side with some mild tenderness but no discrete fluctuance; no visible purulence, leg erythema Laboratory Data Results from last 7 days Lab Units 06/09/25 0437 06/04/25 0505 06/03/25 0542 WBC 10*3/mm3 8.12 9.17 9.13 HEMOGLOBIN g/dL 9.0* 8.8* 8.6* HEMATOCRIT % 28.8* 28.1* 28.2* PLATELETS 10*3/mm3 277 248 272 Results from last 7 days Lab Units 06/09/25 0437 SODIUM mmol/L 137 POTASSIUM mmol/L 4.4 CHLORIDE mmol/L 106 CO2 mmol/L 21.6* BUN mg/dL 17.9 CREATININE mg/dL 1.00 GLUCOSE mg/dL 140* CALCIUM mg/dL 8.6 Results from last 7 days Lab Units 06/03/25 0542 ALK PHOS U/L 95 BILIRUBIN mg/dL 0.2 ALT (SGPT) U/L 12 AST (SGOT) U/L 18 Results from last 7 days Lab Units 06/04/25 0505 SED RATE mm/hr 127* Results from last 7 days Lab Units 06/04/25 0505 CRP mg/dL 9.09* Estimated Creatinine Clearance: 90.7 mL/min (by C-G formula based on SCr of 1 mg/dL). Microbiology: Radiology: Imaging Results (Last 72 Hours) No results found for the last 72 hours. Impression: --acute left lower leg/foot cellulitis and wound infection, prior culture July 2024 with ESBL Klebsiella pneumoniae and pseudomonas aeruginosa, pseudomonas was sensitive to Merrem per microbiology lab at [facility]. He has had multiple surgeries and multiple practitioners recommend higher level amputation which he has refused. he has refused outpatient IV antibiotics and he has refused placement for longer durations of IV antibiotics on prior admits. This refusal of care places him at increased risk for poor outcome. Earlier in 2024 he was discharged to the care of Dr. Oneal, his outpatient ID doctor and Dr Faust his compensation administrator for further care/workup ; readmission May 2025 with acute worsening in redness and pain to left lower extremity. High risk for furtherserious morbidity and other serious sequela including persistent/recurrent or nonhealing wounds, per sistent/progressive or recurrent infection and risk for further functional/limb loss, higher-level amputation and other dire consequences including sepsis/mortalityetc. he remains opposed to amputation, he has previously refused placement/IV abx as above; he voices understanding his poor prognosis overall including risks for dire consequences; past Cx with MRSA/PSA/ESBL at prior admissions; culture June 02, 2025 with Proteus/MRSA/gram-negative cooper --Acute hematuria with chronic indwelling Ambrose catheter. Culture with gram- negative cooper; nursing reports Ambrose catheter has been changed since admission --Peripheral arterial disease by past evaluation of vascular team in addition to history DVT. 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 --Monitor IV and IV antibiotic with risk for systemic complication and potential drug interaction, etc.. --Prognosis generally poor with respect to the left lower extremity, see above regarding patient's prior refusal for higher level amputation and continues to voice understanding risk for dire consequences --Highly complex set of issues with high risk for further serious morbidity and other serious sequela This visit included the following complex service elements: Complex medical decision-making associated with antimicrobial prescribing. Managed infection treatment protocol associated with transitions of care for this complex patient. Britton Flor MD 06/09/2025 * Patricia Varela MD - 06/08/2025 12:03 PM EDT Images from the original note were not included. [facility] Medicine Services PROGRESS NOTE Patient Name: Vitaly Pool : [id number] Date of Admission: 06/02/2025 Primary Care Physician: Gustavo Mehta MD Subjective Subjective CC: Following for LLE wounds, cellulitis HPI: No new issues overnight. Objective Objective Vital Signs: Temp: [97.7 ??F (36.5 ??C)-98.3 ??F (36.8 ??C)] 98.1 ??F (36.7 ??C) Heart Rate: [59-77] 77 Resp: [15-18] 15 BP: (129-167)/(68-96) 129/71 Physical Exam: Constitutional: No acute distress, awake, alert HENT: NCAT, mucous membranes moist. + glasses Respiratory: Clear to auscultation bilaterally, respiratory effort normal Cardiovascular: RRR, no murmurs, rubs, or gallops Gastrointestinal: Positive bowel sounds, soft, nontender, nondistended Musculoskeletal: Right BKA. Left leg with dressing left foot, Psychiatric: Appropriate affect, cooperative Neurologic: Oriented x 3, strength symmetric in all extremities, Cranial Nerves grossly intact to confrontation, speech clear Skin: No rashes. Erythema LLE is improving. No current weeping. Dressing C/D/I. : Ambrose catheter in place with clear urine present Results Reviewed: LAB RESULTS: Lab 06/04/25 0505 06/03/25 0542 06/02/25 1103 WBC 9.17 9.13 7.85 HEMOGLOBIN 8.8* 8.6* 9.7* HEMATOCRIT 28.1* 28.2* 31.8* PLATELETS 248 272 262 NEUTROS ABS 5.63 6.10 6.35 IMMATURE GRANS (ABS) 0.03 0.04 0.03 LYMPHS ABS 1.82 1.60 0.77 MONOS ABS 1.02* 1.06* 0.63 EOS ABS 0.61* 0.29 0.01 MCV 75.7* 75.8* 74.6* SED RATE 127* -- -- CRP 9.09* -- -- PROCALCITONIN -- -- 0.22 LACTATE -- -- 0.9 Lab 06/04/25 0505 06/03/25 0542 06/02/25 1145 06/02/25 1138 06/02/25 1103 SODIUM 137 136 -- -- 134* POTASSIUM 4.4 4.6 -- -- 4.5 CHLORIDE 108* 108* -- -- 106 CO2 19.4* 19.5* -- -- 18.6* ANION GAP 9.6 8.5 -- -- 9.4 BUN 21.8 23.2* -- -- 30.6* CREATININE 1.01 0.95 1.10 1.10 0.99 EGFR 79.5 85.6 -- -- 81.4 GLUCOSE 79 122* -- -- 182* CALCIUM 8.3* 8.2* -- -- 8.6 MAGNESIUM -- 1.8 -- -- -- PHOSPHORUS 3.3 2.9 -- -- -- Lab 06/04/25 0505 06/03/25 0542 06/02/25 1103 TOTAL PROTEIN -- 6.2 7.1 ALBUMIN 2.9* 3.0* 3.4* GLOBULIN -- 3.2 3.7 ALT (SGPT) -- 12 14 AST (SGOT) -- 18 18 BILIRUBIN -- 0.2 0.2 ALK PHOS -- 95 112 Brief Urine Lab Results (Last result in the past 365 days) Color Clarity Blood Leuk Est Nitrite Protein CREAT Urine HCG 06/02/25 1231 Yellow Turbid Large (3+) Large (3+) Positive >=300 mg/dL (3+) Microbiology Results Abnormal Procedure Component Value - Date/Time Wound Culture - Swab, Leg, Left [[id number]] (Abnormal) (Susceptibility) Collected: 06/02/25 1104 Lab Status: Edited Result - FINAL Specimen: Swab from Leg, Left Updated: 06/07/25 0754 Wound Culture Light growth (2+) Proteus mirabilis Moderate growth (3+) Staphylococcus aureus, MRSA Comment: Methicillin resistant Staphylococcus aureus, Patient may be an isolation risk. Light growth (2+) Pseudomonas aeruginosa Comment: Gram Stain Occasional WBCs seen Rare (1+) Gram positive cocci in pairs Susceptibility Proteus mirabilis MURRAY Amoxicillin + Clavulanate Susceptible Ampicillin Resistant Ampicillin + Sulbactam Susceptible Cefazolin (Non Urine) Resistant Cefepime Resistant Ceftazidime Intermediate Ceftriaxone Resistant Cefuroxime axetil Resistant Ciprofloxacin Resistant Gentamicin Susceptible Levofloxacin Resistant Piperacillin + Tazobactam Susceptible Tetracycline Resistant Trimethoprim + Sulfamethoxazole Resistant Susceptibility Staphylococcus aureus, MRSA MURRAY Clindamycin Susceptible Daptomycin Susceptible [1] Erythromycin Resistant Oxacillin Resistant Rifampin Susceptible Tetracycline Susceptible Trimethoprim + Sulfamethoxazole Resistant Vancomycin Susceptible [1] Appended report. These results have been appended to a previously final verified report. Susceptibility Pseudomonas aeruginosa MURRAY Cefepime Susceptible Ceftazidime Susceptible Ciprofloxacin Resistant Levofloxacin Resistant Meropenem Susceptible (C) [1] Piperacillin + Tazobactam Susceptible Tobramycin Susceptible [1] Appended report. These results have been appended to a previously final verified report. Susceptibility Comments Proteus mirabilis With the exception of urinary-sourced infections, aminoglycosides should not be used as monotherapy. Staphylococcus aureus, MRSA Daptomycin per Dr. Rivera. Pseudomonas aeruginosa Meropenem requested by Dr Rivera 06/07/25. With the exception of urinary-sourced infections, aminoglycosides should not be used as monotherapy. Urine Culture - Urine, Indwelling Urethral Catheter [[id number]] (Abnormal) (Susceptibility) Collected: 06/02/25 1231 Lab Status: Final result Specimen: Urine from Indwelling Urethral Catheter Updated: 06/06/25 0804 Urine Culture >100,000 CFU/mL Proteus mirabilis ESBL >100,000 CFU/mL Escherichia coli Narrative: Colonization of the urinary tract without infection is common. Treatment is discouraged unless the patient is symptomatic, , or undergoing an invasive urologic procedure. Recent outcomes data supports the use of pip/tazo in the treatment of susceptible ESBL infections for uncomplicated UTI. Consider use of pip/tazo as a carbapenem-sparing regimen in applicable patients. Susceptibility Proteus mirabilis ESBL MURRAY Ciprofloxacin Resistant Ertapenem Susceptible Gentamicin Susceptible Levofloxacin Resistant Meropenem Susceptible Nitrofurantoin Resistant Piperacillin + Tazobactam Susceptible Trimethoprim + Sulfamethoxazole Resistant Susceptibility Escherichia coli MURRAY Amoxicillin + Clavulanate Susceptible Ampicillin Susceptible Ampicillin + Sulbactam Susceptible Cefazolin (Urine) Susceptible Cefepime Susceptible Ceftazidime Susceptible Ceftriaxone Susceptible Cefuroxime axetil Intermediate Ciprofloxacin Resistant Gentamicin Susceptible Levofloxacin Resistant Nitrofurantoin Susceptible Piperacillin + Tazobactam Susceptible Trimethoprim + Sulfamethoxazole Resistant No radiology results from the last 24 hrs Results for orders placed during the hospital encounter of 08/31/24 Adult Transthoracic Echo Complete W/ Cont if Necessary Per Protocol 09/12/2024 4:10 PM Interpretation Summary Left ventricular systolic function is normal. Calculated left ventricular EF = 52.5% There is a trivial pericardial effusion. The aortic valve exhibits sclerosis. Mitral annular calcification is present. I have personally reviewed the therapy plans: [x] PT/OT/ ST Therapy Plans Current medications: Scheduled Meds:apixaban, 5 mg, Oral, BID baclofen, 10 mg, Oral, Q12H carvedilol, 3.125 mg, Oral, BID With Meals clopidogrel, 75 mg, Oral, Daily DAPTOmycin, 6 mg/kg (Adjusted), Intravenous, Q24H finasteride, 5 mg, Oral, Daily folic acid, 1 mg, Oral, Daily [Held by provider] furosemide, 40 mg, Oral, Daily gabapentin, 200 mg, Oral, TID insulin glargine, 25 Units, Subcutaneous, Nightly insulin lispro, 2-7 Units, Subcutaneous, 4x Daily AC & at Bedtime lamoTRIgine, 100 mg, Oral, Daily lamoTRIgine, 250 mg, Oral, Nightly melatonin, 5 mg, Oral, Nightly meropenem, 500 mg, Intravenous, Q6H multivitamin with minerals, 1 tablet, Oral, Daily pantoprazole, 40 mg, Oral, BID sodium chloride, 10 mL, Intravenous, Q12H Continuous Infusions: PRN Meds:. acetaminophen senna-docusate sodium AND polyethylene glycol AND bisacodyl AND bisacodyl Calcium Replacement - Follow Nurse / BPA Driven Protocol dextrose dextrose glucagon (human recombinant) Magnesium Standard Dose Replacement - Follow Nurse / BPA Driven Protocol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 Luz Denson MD 25 Units at 06/06/25 222 Insulin Lispro (humaLOG) injection 2-7 Units 2-7 Units Subcutaneous 4x Daily AC & at Bedtime Luz Denson MD 2 Units at 06/05/25 1742 lamoTRIgine (LaMICtal) tablet 100 mg 100 mg Oral Daily Luz Denson MD 100 mg at 06/06/25 0905 lamoTRIgine (LaMICtal) tablet 250 mg 250 mg Oral Nightly Luz Denson MD 250 mgat 06/06/25 2219 Magnesium Standard Dose Replacement - Follow Nurse / BPA Driven Protocol Not Applicable PRN Luz Denson MD melatonin tablet 5 mg 5 mg Oral Nightly Luz Denson MD 5 mg at 06/06/25 222 meropenem (MERREM) 500 mg in sodium chloride 0.9 % 100 mL MBP 500 mg Intravenous Q6H Britton Flor MD 500 mg at 06/07/25 0333 morphine injection 1 mg 1 mg Intravenous Q4H PRN Amanda Bermudez MD 1 mg at 06/06/25 0518 multivitamin with minerals 1 tablet 1 tablet Oral Daily Luz Denson MD 1 tablet at 06/06/25 09 nitroglycerin (NITROSTAT) SL tablet 0.4 mg 0.4 mg Sublingual Q5 Min PRN Luz Holt MD ondansetron ODT (ZOFRAN-ODT) disintegrating tablet 4 mg 4 mg Oral Q4H PRN Najma Perez PA Or ondansetron (ZOFRAN) injection 4 mg 4 mg Intravenous Q6H PRN Najma Perez PA 4 mg at 06/06/25 09 oxyCODONE (ROXICODONE) immediate release tablet 5 mg 5 mg Oral Q4H PRN Zakiya Mccormick DO 5 mg at 06/06/25 222 pantoprazole (PROTONIX) EC tablet 40 mg 40 mg Oral BID Luz Denson MD 40 mg at06/06/25 222 Phosphorus Replacement - Follow Nurse / BPA Driven Protocol Not Applicable PRN Luz Denson MD Potassium Replacement - Follow Nurse / BPA Driven Protocol Not Applicable PRN Luz Denson MD sodium chloride 0.9 % flush 10 mL 10 mL Intravenous Q12H Luz Denson MD 10 mL at 06/06/25 2229 sodium chloride 0.9 % flush 10 mL 10 mL Intravenous PRN Luz Denson MD 10 mL at 06/05/25 1746 sodium chloride 0.9 % infusion 40 mL 40 mL Intravenous PRN Luz Denson MD Antibiotics: Anti-Infectives (From admission, onward) Ordered Dose/Rate Route Frequency Start Stop 06/06/25 0759 piperacillin-tazobactam (ZOSYN) 3.375 g IVPB in 100 mL NS MBP (CD) Status: Discontinued Ordering Provider: Britton Flor MD 3.375 g over 4 Hours Intravenous Every 8 Hours 06/06/25 1700 06/06/25 0803 06/06/25 0759 piperacillin-tazobactam (ZOSYN) 3.375 g IVPB in 100 mL NS MBP (CD) Status: Discontinued Ordering Provider: Britton Flor MD 3.375 g over 30 Minutes Intravenous Once 06/06/25 0900 06/06/25 0803 06/06/25 0803 meropenem (MERREM) 500 mg in sodium chloride 0.9 % 100 mL MBP Status: Discontinued Ordering Provider: Britton Flor MD 500 mg over 30 Minutes Intravenous Once 06/06/25 0900 06/06/25 0805 06/06/25 0803 meropenem (MERREM) 500 mg in sodium chloride 0.9 % 100 mL MBP Ordering Provider: Britton Flor MD 500 mg over 3 Hours Intravenous Every 6 Hours 06/06/25 0900 06/13/25 0859 06/04/25 1329 meropenem (MERREM) 500 mg in sodium chloride 0.9 % 100 mL MBP Status: Discontinued Ordering Provider: Britton Flor MD 500 mg over 3 Hours Intravenous Every 6 Hours 06/04/25 2100 06/06/25 0759 06/04/25 1329 meropenem (MERREM) 500 mg in sodium chloride 0.9 % 100 mL MBP Ordering Provider: Britton Flor MD 500 mg over 30 Minutes Intravenous Once 06/04/25 1415 06/04/25 1535 06/03/25 0707 DAPTOmycin (CUBICIN) 550 mg in sodium chloride 0.9 % 50 mL IVPB Ordering Provider: Alisa Yan APRN 6 mg/kg ?? 94.6 kg (Adjusted) 100 mL/hr over 30 Minutes Intravenous Every 24 Hours 06/03/25 0900 06/10/25 0859 06/02/25 1522 Linezolid (ZYVOX) 600 mg 300 mL Status: Discontinued Ordering Provider: Luz Denson MD 600 mg 300 mL/hr over 60 Minutes Intravenous Every 12 Hours 06/03/25 0400 06/03/25 0707 06/02/25 1523 piperacillin-tazobactam (ZOSYN) 4.5 g IVPB in 100 mL NS MBP (CD) Status: Discontinued Ordering Provider: Luz Denson MD 4.5 g over 4 Hours Intravenous Every 8 Hours 06/02/25 2000 06/04/25 1329 06/02/25 1341 Linezolid (ZYVOX) 600 mg 300 mL Ordering Provider: Mary Miller MD 600 mg 300 mL/hr over 60 Minutes Intravenous Once 06/02/25 1357 06/02/25 1741 06/02/25 1338 vancomycin 2500 mg/500 mL 0.9% NS IVPB ([facility]) Status: Discontinued Ordering Provider: Mary Miller MD 20 mg/kg ?? 120 kg over 150 Minutes Intravenous Once 06/02/25 1354 06/02/25 1341 06/02/25 1338 piperacillin-tazobactam (ZOSYN) 3.375 g IVPB in 100 mL NS MBP (CD) Ordering Provider: Mary Miller MD 3.375 g over 30 Minutes Intravenous Once 06/02/25 1354 06/02/25 1604 Review of Systems 06/07/25 Constitutional-- No Fever, chills or sweats. Appetite good, and no malaise. Has fatigue. Heent-- No new vision, hearing or throat complaints. No epistaxis or oral sores. Denies odynophagiaor dysphagia. No flashers, floaters or eye pain. No odynophagia or dysphagia. No headache, photophobia or neck stiffness. CV-- No chest pain, palpitation or syncope Resp-- No SOB/cough/Hemoptysis GI- No nausea, vomiting, or diarrhea. No hematochezia, melena, or hematemesis. Denies jaundice or chronic liver disease. -- see above Lymph- no swollen lymph nodes in neck/axilla or groin. Heme- No active bruising or bleeding MS-- no swelling or pain in the bones or joints of arms/legs. No new back pain. Neuro-- No acute focal weakness or numbness in the arms or legs. No seizures.chronically debilitated Full 12 point review of systems reviewed and negative otherwise for acute complaints, except for above Physical Exam: Vital Signs BP 123/67 (BP Location: Right arm, Patient Position: Lying) Pulse 73 Temp 98.5 ??F (36.9 ??C) (Oral) Resp 18 Ht 182.9 cm (72 ) Wt 120 kg (265 lb) SpO2 94% BMI 35.94 kg/m?? GENERAL: Awake , in no acute distress. Chronically debilitated HEENT: Normocephalic, atraumatic. No conjunctival injection. No icterus. Oropharynx clear without evidence of thrush or exudate. No evidence of periodontal disease. NECK: Supple without nuchal rigidity. No mass. LYMPH: No cervical, axillary or inguinal lymphadenopathy. HEART: RRR; No murmur, rubs, gallops. LUNGS: Clear to auscultation bilaterally without wheezing, rales, rhonchi. Normal respiratory effort. Nonlabored. No dullness. ABDOMEN: Soft, nontender, nondistended. Positive bowel sounds. No rebound or guarding. NO mass or HSM. EXT: see below MSK: FROM without joint effusions noted arms/legs. SKIN: Warm and dry without cutaneous eruptions on Inspection/palpation. NEURO: Oriented to PPT. Right BKA noted Left lower leg with vague erythema from knee to foot, wound on the dorsal side with some mild tenderness but no discrete fluctuance; no visible purulence, leg erythema Laboratory Data Results from last 7 days Lab Units 06/04/25 0505 06/03/25 0542 06/02/25 1103 WBC 10*3/mm3 9.17 9.13 7.85 HEMOGLOBIN g/dL 8.8* 8.6* 9.7* HEMATOCRIT % 28.1* 28.2* 31.8* PLATELETS 10*3/mm3 248 272 262 Results from last 7 days Lab Units 06/04/25 0505 SODIUM mmol/L 137 POTASSIUM mmol/L 4.4 CHLORIDE mmol/L 108* CO2 mmol/L 19.4* BUN mg/dL 21.8 CREATININE mg/dL 1.01 GLUCOSE mg/dL 79 CALCIUM mg/dL 8.3* Results from last 7 days Lab Units 06/03/25 0542 ALK PHOS U/L 95 BILIRUBIN mg/dL 0.2 ALT (SGPT) U/L 12 AST (SGOT) U/L 18 Results from last 7 days Lab Units 06/04/25 0505 SED RATE mm/hr 127* Results from last 7 days Lab Units 06/04/25 0505 CRP mg/dL 9.09* Estimated Creatinine Clearance: 89.8 mL/min (by C-G formula based on SCr of 1.01 mg/dL). Microbiology: Radiology: Imaging Results (Last 72 Hours) No results found for the last 72 hours. Impression: --acute left lower leg/foot cellulitis and wound infection, prior culture July 2024 with ESBL Klebsiella pneumoniae and pseudomonas aeruginosa, pseudomonas was sensitive to Merrem per microbiology lab at [facility]. He has had multiple surgeries and multiple practitioners recommend higher level amputation which he has refused. he has refused outpatient IV antibiotics and he has refused placement for longer durations of IV antibiotics on prior admits. This refusal of care places him at increased risk for poor outcome. Earlier in 2024 he was discharged to the care of Dr. Oneal, his outpatient ID doctor and Dr Faust his compensation administrator for further care/workup ; readmission May 2025 with acute worsening in redness and pain to left lower extremity. High risk for furtherserious morbidity and other serious sequela including persistent/recurrent or nonhealing wounds, per sistent/progressive or recurrent infection and risk for further functional/limb loss, higher-level amputation and other dire consequences including sepsis/mortalityetc. he remains opposed to amputation, he has previously refused placement/IV abx as above; he voices understanding his poor prognosis overall including risks for dire consequences; past Cx with MRSA/PSA/ESBL at prior admissions; culture June 02, 2025 with Proteus/MRSA/gram-negative cooper --Acute hematuria with chronic indwelling Ambrose catheter. Culture with gram- negative cooper; nursing reports Ambrose catheter has been changed since admission --Peripheral arterial disease by past evaluation of vascular team in addition to history DVT. 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 --Monitor IV and IV antibiotic with risk for systemic complication and potential drug interaction, etc.. --Prognosis generally poor with respect to the left lower extremity, see above regarding patient's prior refusal for higher level amputation and continues to voice understanding risk for dire consequences --Highly complex set of issues with high risk for further serious morbidity and other serious sequela This visit included the following complex service elements: Complex medical decision-making associated with antimicrobial prescribing. Communicated with the clinical microbiology lab. Britton Flor MD 06/07/2025 * Vilma Nj, RD - 06/06/2025 4:02 PM EDT Patient Name: Vitaly Pool Date of : 1955 Admission date: 06/02/2025 Reason for Encounter: Pressure Injury Stg 2+ [facility] Clinical Nutrition Assessment Subjective Subjective Information 06/06/25 Patient screened per nutrition protocol for MST2 or greater. Admitted d/t 4 days of malaise, new hematuria, and worsening redness of LLE. Patient sitting up in bed, reports he has a good appetite, notes he's been having nausea but zofran is helping. Denied any recent weight loss. Declined any chewing or swallowing difficulties. Agreeable to trial Boost with dinner. No food preferences provided atthis time. Objective H&P and Current Problems H&P Past Medical History: Diagnosis Date Anemia Cellulitis Diabetes mellitus Frequent falls History of DVT (deep vein thrombosis) Hyperlipidemia Hypertension Migraines Myocardial infarction Peripheral neuropathy Pneumonia Spinal stenosis Wears dentures FULL Wears glasses Past Surgical History: Procedure Laterality Date ABOVE KNEE AMPUTATION Right AMPUTATION DIGIT Left 01/28/2024 Procedure: SECOND AND THIRD TOE AMPUTATION LEFT; Surgeon: Cecil Buenrostro Jr., MD; Location: [facility]; Service: Orthopedics; Laterality: Left; ANTERIOR CERVICAL DISCECTOMY W/ FUSION Bilateral 07/17/2020 Procedure: Cervical discectomy anterior with fusion C3-4; Surgeon: Tyree Tan MD; Location:[facility]; Service: Neurosurgery; Laterality: Bilateral; AORTOGRAM N/A 01/26/2024 Procedure: ABDOMINAL AORTIC ANGIOGRAM, LLE ANGIOGRAM, LEFT ANTERIOR TIBIAL ATHERECTOMY, LEFT ANTERIOR TIBIAL ANGIOPLASTY; Surgeon: Archie Olvera MD; Location: [facility]; Service: Vascular; Laterality: N/A; CONTRAST: 50 ML, FT: 2 MIN 54 SEC, DOSE: 66 MGY. BACK SURGERY FOR DISC HERNIATION CARDIAC CATHETERIZATION CARDIAC CATHETERIZATION N/A 09/04/2024 Procedure: Peripheral angiography - Left lower extremity angio - Right femoral access; Surgeon: Jared Marcano MD; Location: [facility]; Service: Peripheral Vascular; Laterality: N/A; CORONARY ANGIOPLASTY WITH STENT PLACEMENT stent x 1 INCISION AND DRAINAGE FOOT Left 06/17/2023 Procedure: LEFT FOOT DEBRIDEMENT WOUND VACUUM ASSISTED CLOSURE; Surgeon: Cecil Buenrostro Jr., MD;Location: [facility]; Service: Orthopedics; Laterality: Left; INCISION AND DRAINAGE LEG Left 07/25/2023 Procedure: INCISION AND DRAINAGE HEEL, WOUND VAC; Surgeon: Cecil Buenrostro Jr., MD; Location: [facility]; Service: Orthopedics; Laterality: Left; INTERVENTIONAL RADIOLOGY PROCEDURE N/A 05/02/2019 Procedure: IVC FILTER PLACEMENT; Surgeon: Pedro Zapien MD; Location: [facility]; Service: Interventional Radiology INTERVENTIONAL RADIOLOGY PROCEDURE Left 09/07/2024 Procedure: LEFT peroneal arteriovenous fistula embolization - Right femoral access; Surgeon: Jared Marcano MD; Location: [facility] LOCATION; Service: Cardiovascular; Laterality: Left; Please coordinate with Gautam Patel ([facility]) [phone] who will bring coils LUMBAR DISCECTOMY N/A 05/03/2019 Procedure: THORACIC LAMINECTOMY T11-12; Surgeon: Tyree Tan MD; Location: [facility]; Service: Neurosurgery Current Problems Admission Diagnosis: Cellulitis [L03.90] Problem List: Cellulitis Applicable Nutrition Hx 09/12/24 Moderate chronic malnutrition Anthropometrics Height: 182.9 cm (72 ) Weight: 120 kg (265 lb) (06/02/25 0932) Weight Method: Stated BMI (Calculated): 35.9 Trending Weight Changes 06/06/25: No significant changes Weight History Weight Weight (kg) Weight (lbs) Weight Method Visit Report 08/31/2024 113.399 kg 250 lb Stated 121.972 kg 268 lb 14.4 oz 09/01/2024 121.564 kg 268 lb 06/02/2025 120.203 kg 265 lb Stated Labs Comment: Results from last 7 days Lab Units 06/04/25 0505 06/03/25 0542 06/02/25 1145 06/02/25 1138 06/02/25 1103 SODIUM mmol/L 137 136 -- -- 134* POTASSIUM mmol/L 4.4 4.6 -- -- 4.5 GLUCOSE mg/dL 79 122* -- -- 182* BUN mg/dL 21.8 23.2* -- -- 30.6* CREATININE mg/dL 1.01 0.95 1.10 < > 0.99 CALCIUM mg/dL 8.3* 8.2* -- -- 8.6 PHOSPHORUS mg/dL 3.3 2.9 -- -- -- MAGNESIUM mg/dL -- 1.8 -- -- -- ALBUMIN g/dL 2.9* 3.0* -- -- 3.4* CRP mg/dL 9.09* -- -- -- -- LACTATE mmol/L -- -- -- -- 0.9 BILIRUBIN mg/dL -- 0.2 -- -- 0.2 ALK PHOS U/L -- 95 -- -- 112 AST (SGOT) U/L -- 18 -- -- 18 ALT (SGPT) U/L -- 12 -- -- 14 < > = values in this interval not displayed. Results from last 7 days Lab Units 06/04/25 0505 06/03/25 0542 06/02/25 1103 PLATELETS 10*3/mm3 248 272 262 HEMOGLOBIN g/dL 8.8* 8.6* 9.7* HEMATOCRIT % 28.1* 28.2* 31.8* Lab Results Component Value Date HGBA1C 7.60 (H) 09/02/2024 Medications Scheduled Medications apixaban, 5 mg, Oral, BID baclofen, 10 mg, Oral, Q12H carvedilol, 3.125 mg, Oral, BID With Meals clopidogrel, 75 mg, Oral, Daily DAPTOmycin, 6 mg/kg (Adjusted), Intravenous, Q24H finasteride, 5 mg, Oral, Daily folic acid, 1 mg, Oral, Daily [Held by provider] furosemide, 40 mg, Oral, Daily gabapentin, 200 mg, Oral, TID insulin glargine, 25 Units, Subcutaneous, Nightly insulin lispro, 2-7 Units, Subcutaneous, 4x Daily AC & at Bedtime lamoTRIgine, 100 mg, Oral, Daily lamoTRIgine, 250 mg, Oral, Nightly melatonin, 5 mg, Oral, Nightly meropenem, 500 mg, Intravenous, Q6H multivitamin with minerals, 1 tablet, Oral, Daily pantoprazole, 40 mg, Oral, BID sodium chloride, 10 mL, Intravenous, Q12H Infusions PRN Medications acetaminophen senna-docusate sodium AND polyethylene glycol AND bisacodyl AND bisacodyl Calcium Replacement - Follow Nurse / BPA Driven Protocol dextrose dextrose glucagon (human recombinant) Magnesium Standard Dose Replacement - Follow Nurse / BPA Driven Protocol Morphine nitroglycerin ondansetron ODT OR ondansetron oxyCODONE Phosphorus Replacement - Follow Nurse / BPA Driven Protocol Potassium Replacement - Follow Nurse / BPA Driven Protocol sodium chloride sodium chloride Physical Findings Chewing/Swallowing No issues identified at this time Dentition Mouth/Teeth WDL: .WDL except, teeth Teeth Symptoms: tooth/teeth missing Skin Wound 01/16/24 0800 coccyx MASD (Moisture associated skin damage)-Pressure Injury Stage: Stage 2 (06/03/251999) Wound 01/25/24 1909 Right other (see comments) gluteal Skin Tear-Pressure Injury Stage: Stage 2 (06/03/251999) Wound Left posterior heel-Pressure Injury Stage: Stage 2 (06/03/251999) Bowel function Last Bowel Movement: 06/04/25 (06/05/25 0815) Edema Edema: leg, left, foot, left (06/06/25 0800) Leg, Left Edema: 2+ (Mild) (06/06/25 0800) Foot, Left Edema: 2+ (Mild) (06/06/25 0800) Intake & Output (last 3 days) 06/03 0706/04 0706/04 0706/05 0706/06 0706/06 0706/07 07 P.O. 462 280 420 IV Piggyback 100 100 Total Intake(mL/kg) 562 (4.7) 380 (3.2) 420 (3.5) Urine (mL/kg/hr) 650 (0.2) 1300 (0.5) 1315 (0.5) Total Output 650 1300 1315 Net -88 -920 -895 Nutrition Focused Physical Exam 06/06/25: NFPE completed and not consistent with nutrition diagnosis of malnutrition at this time using AND/ASPEN criteria. 1 Current Nutrition Orders & Evaluation of Intake Oral Nutrition Food Allergies/Intolerances NKFA Current PO Diet Diet: Regular/House, Diabetic; Consistent Carbohydrate; Fluid Consistency: Thin (IDDSI 0) Oral Nutrition Supplement None Trending % PO Intake 06/06/25: 88% x 7 meals 2 Assessment & Plan Nutrition Diagnosis and Goals Nutrition Diagnosis 1 Increased Nutrient Needs (protein) r/t skin breakdown as evidenced by L heel PI stage 2, L gluteal stage 2 PI and coccyx stage 2 PI Nutrition Diagnosis 2 None Goal(s) Maintain PO Intake and Accepts Oral Nutrition Supplement Nutrition Intervention and Prescription Intervention Start oral nutrition supplement, Obtain food preferences, Advised alternate menu selections, Advised available snacks, Continue to monitor for plan of care, Continue with current interventions, and Completed NFPE Diet Plan Continue current PO diet as ordered Supplement Trial Boost GC with dinner Education Provided Educated patient on increased protein needs to aid in wound healing 3 Monitoring/Evaluation Monitor/Evaluation Per Protocol, PO Intake, Oral Nutrition Supplement Intake, Skin Status, and POC/GOC RD Follow-Up Encounter 7 days and prn Electronically signed by: Vilma Nj RD 06/06/25 16:02 EDT * Alondra Lanza MD - 06/06/2025 8:31 AM EDT Images from the original note were not included. [facility] Medicine Services PROGRESS NOTE Patient Name: Vitaly Pool : 1955 Date of Admission: 06/02/2025 Primary Care Physician: Gustavo Mehta MD Subjective Subjective CC: Following for LLE wounds, cellulitis HPI: No new overnight events. Disappointed in results of Urine Cx. States he has talked to his Urologistpreviously about a suprapubic catheter over the ambrose catheter. Objective Objective Vital Signs: Temp: [98.3 ??F (36.8 ??C)-99.2 ??F (37.3 ??C)] 98.7 ??F (37.1 ??C) Heart Rate: [69-79] 79 Resp: [16] 16 BP: (114-166)/(64-84) 166/84 Physical Exam: Constitutional: No acute distress, awake, alert HENT: NCAT, mucous membranes moist. + glasses Respiratory: Clear to auscultation bilaterally, respiratory effort normal Cardiovascular: RRR, no murmurs, rubs, or gallops Gastrointestinal: Positive bowel sounds, soft, nontender, nondistended Musculoskeletal: Right BKA. Left leg with dressing left foot, Psychiatric: Appropriate affect, cooperative Neurologic: Oriented x 3, strength symmetric in all extremities, Cranial Nerves grossly intact to confrontation, speech clear Skin: No rashes. Erythema LLE is improving. No current weeping. Dressing C/D/I. Results Reviewed: LAB RESULTS: Lab 06/04/25 0505 06/03/25 0542 06/02/25 1103 WBC 9.17 9.13 7.85 HEMOGLOBIN 8.8* 8.6* 9.7* HEMATOCRIT 28.1* 28.2* 31.8* PLATELETS 248 272 262 NEUTROS ABS 5.63 6.10 6.35 IMMATURE GRANS (ABS) 0.03 0.04 0.03 LYMPHS ABS 1.82 1.60 0.77 MONOS ABS 1.02* 1.06* 0.63 EOS ABS 0.61* 0.29 0.01 MCV 75.7* 75.8* 74.6* SED RATE 127* -- -- CRP 9.09* -- -- PROCALCITONIN -- -- 0.22 LACTATE -- -- 0.9 Lab 06/04/25 0505 06/03/25 0542 06/02/25 1145 06/02/25 1138 06/02/25 1103 SODIUM 137 136 -- -- 134* POTASSIUM 4.4 4.6 -- -- 4.5 CHLORIDE 108* 108* -- -- 106 CO2 19.4* 19.5* -- -- 18.6* ANION GAP 9.6 8.5 -- -- 9.4 BUN 21.8 23.2* -- -- 30.6* CREATININE 1.01 0.95 1.10 1.10 0.99 EGFR 79.5 85.6 -- -- 81.4 GLUCOSE 79 122* -- -- 182* CALCIUM 8.3* 8.2* -- -- 8.6 MAGNESIUM -- 1.8 -- -- -- PHOSPHORUS 3.3 2.9 -- -- -- Lab 06/04/25 0505 06/03/25 0542 06/02/25 1103 TOTAL PROTEIN -- 6.2 7.1 ALBUMIN 2.9* 3.0* 3.4* GLOBULIN -- 3.2 3.7 ALT (SGPT) -- 12 14 AST (SGOT) -- 18 18 BILIRUBIN -- 0.2 0.2 ALK PHOS -- 95 112 Brief Urine Lab Results (Last result in the past 365 days) Color Clarity Blood Leuk Est Nitrite Protein CREAT Urine HCG 06/02/25 1231 Yellow Turbid Large (3+) Large (3+) Positive >=300 mg/dL (3+) Microbiology Results Abnormal Procedure Component Value - Date/Time Wound Culture - Swab, Leg, Left [[id number]] (Abnormal) (Susceptibility) Collected: 06/02/25 1104 Lab Status: Preliminary result Specimen: Swab from Leg, Left Updated: 06/06/25 0805 Wound Culture Light growth (2+) Proteus mirabilis Moderate growth (3+) Staphylococcus aureus, MRSA Comment: Methicillin resistant Staphylococcus aureus, Patient may be an isolation risk. Light growth (2+) Gram Negative Bacilli Comment: ID/MICs to follow Gram Stain Occasional WBCs seen Rare (1+) Gram positive cocci in pairs Susceptibility Proteus mirabilis MURRAY Amoxicillin + Clavulanate Susceptible Ampicillin Resistant Ampicillin + Sulbactam Susceptible Cefazolin (Non Urine) Resistant Cefepime Resistant Ceftazidime Intermediate Ceftriaxone Resistant Cefuroxime axetil Resistant Ciprofloxacin Resistant Gentamicin Susceptible Levofloxacin Resistant Piperacillin + Tazobactam Susceptible Tetracycline Resistant Trimethoprim + Sulfamethoxazole Resistant Susceptibility Staphylococcus aureus, MRSA MURRAY Clindamycin Susceptible Daptomycin Susceptible [1] Erythromycin Resistant Oxacillin Resistant Rifampin Susceptible Tetracycline Susceptible Trimethoprim + Sulfamethoxazole Resistant Vancomycin Susceptible [1] Appended report. These results have been appended to a previously final verified report. Susceptibility Comments Proteus mirabilis With the exception of urinary-sourced infections, aminoglycosides should not be used as monotherapy. Staphylococcus aureus, MRSA Daptomycin per Dr. Rivera. Urine Culture - Urine, Indwelling Urethral Catheter [[id number]] (Abnormal) (Susceptibility) Collected: 06/02/25 1231 Lab Status: Final result Specimen: Urine from Indwelling Urethral Catheter Updated: 06/06/25 0804 Urine Culture >100,000 CFU/mL Proteus mirabilis ESBL >100,000 CFU/mL Escherichia coli Narrative: Colonization of the urinary tract without infection is common. Treatment is discouraged unless the patient is symptomatic, , or undergoing an invasive urologic procedure. Recent outcomes data supports the use of pip/tazo in the treatment of susceptible ESBL infections for uncomplicated UTI. Consider use of pip/tazo as a carbapenem-sparing regimen in applicable patients. Susceptibility Proteus mirabilis ESBL MURRAY Ciprofloxacin Resistant Ertapenem Susceptible Gentamicin Susceptible Levofloxacin Resistant Meropenem Susceptible Nitrofurantoin Resistant Piperacillin + Tazobactam Susceptible Trimethoprim + Sulfamethoxazole Resistant Susceptibility Escherichia coli MURRAY Amoxicillin + Clavulanate Susceptible Ampicillin Susceptible Ampicillin + Sulbactam Susceptible Cefazolin (Urine) Susceptible Cefepime Susceptible Ceftazidime Susceptible Ceftriaxone Susceptible Cefuroxime axetil Intermediate Ciprofloxacin Resistant Gentamicin Susceptible Levofloxacin Resistant Nitrofurantoin Susceptible Piperacillin + Tazobactam Susceptible Trimethoprim + Sulfamethoxazole Resistant No radiology results from the last 24 hrs Results for orders placed during the hospital encounter of 12/19/24 Adult Transthoracic Echo Complete W/ Cont if Necessary Per Protocol 09/12/2024 4:10 PM Interpretation Summary Left ventricular systolic function is normal. Calculated left ventricular EF = 52.5% There is a trivial pericardial effusion. The aortic valve exhibits sclerosis. Mitral annular calcification is present. I have personally reviewed the therapy plans: [x] PT/OT/ ST Therapy Plans Current medications: Scheduled Meds:apixaban, 5 mg, Oral, BID baclofen, 10 mg, Oral, Q12H carvedilol, 3.125 mg, Oral, BID With Meals clopidogrel, 75 mg, Oral, Daily DAPTOmycin, 6 mg/kg (Adjusted), Intravenous, Q24H finasteride, 5 mg, Oral, Daily folic acid, 1 mg, Oral, Daily [Held by provider]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 January 2024 and August 2024 he reports being followed by Dr. Faust in [place] and has seen Dr Oneal (ID in [place]); he is not a good historian with respect to detail. Reports having had some further surgery to the left foot although he is unable to clarify specific date/procedure. Culture at [facility] August 07, 2024 from left foot wound with ESBL Klebsiella pneumoniae and pseudomonas aeruginosa (microbiology lab there reports the Pseudomonas is sensitive to Merrem). He reports his outpatient practitioners had recommended admission to the hospital for IV antibiotics but patient had refused at that time. He also reports that he was in the emergency room at [facility] mid August, no cultures done at that time. Patient reports practitioners at [facility] had recommended higher level amputation but patient has continued to refuse that. He was read[facility] to [facility] on August 31, 2024 with worsening odor/drainage andredness/pain to the left lower extremity in recent days/weeks. He reports having been taking outpatient Levaquin; prior history MRSA/PSA and ESBL organisms 09/04/24 Dr Marcano. Procedure/CPT?? Codes: RIGHT MAIN LINE ASSEMBLER access - ultrasound guided Aortogram with LEFT lower extremity run-off LEFT PT angioplasty ([id number] Nanocross) LEFT plantar angioplasty ([id number] Nanocross, 2.7o810qx UltraverseRx) LEFT AT angioplasty ([id number] Nanocross, 2.8o360tm UltraverseRx) LEFT DP angioplasty ([id number] Nanocross, 2.7k912fn UltraverseRx) RIGHT MAIN LINE ASSEMBLER closure (Angioseal) 09/07/24 Dr Marcano Procedure/CPT?? Codes: RIGHT MAIN LINE ASSEMBLER access - ultrasound guided Aortogram with LEFT lower extremity run-off LEFT Pr AVF embolization RIGHT MAIN LINE ASSEMBLER closure 09/09/24 moved to ICU overnight with reports of seizure-like activity. Sleepy but awakens, recognizes me and has conversation asking when he can go home, denies specific focal complaints aside from left leg pain. No fever, white blood cell count remains normal. On room air. 09/20/24 antibiotics stopped at discharge, finished daptomycin/Zosyn and follow-up plan had been withDr. Oneal/ Readmitted on June 02, 2025, seen by Dr. Vogel. He developed generalized weakness with hematuria with chronic Ambrose catheter, worsening redness to the left lower leg and empiric antibiotics reinitiated with daptomycin/Zosyn. Subsequent adjustment to daptomycin/Merrem with concern for mixed culture including ESBL species per microbiology 06/04/25 room air; no new redness; left lower extremity pain which is dull at present, sharp at times, worse with manipulation, generally better with pain meds and 2-3 out of 10 in severity. Chronic Ambrose catheter No fevers chills or sweats. No headache photophobia or neck stiffness. No shortness of breath coughor hemoptysis. no diarrhea. no flank pain. no hemodynamic stable per nursing Past Medical History: Diagnosis Date Anemia Cellulitis Diabetes mellitus Frequent falls History of DVT (deep vein thrombosis) Hyperlipidemia Hypertension Migraines Myocardial infarction Peripheral neuropathy Pneumonia Spinal stenosis Wears dentures FULL Wears glasses Past Surgical History: Procedure Laterality Date ABOVE KNEE AMPUTATION Right AMPUTATION DIGIT Left 01/28/2024 Procedure: SECOND AND THIRD TOE AMPUTATION LEFT; Surgeon: Cecil Buenrostro Jr., MD; Location: [facility]; Service: Orthopedics; Laterality: Left; ANTERIOR CERVICAL DISCECTOMY W/ FUSION Bilateral 07/17/2020 Procedure: Cervical discectomy anterior with fusion C3-4; Surgeon: Tyree Tan MD; Location:[facility]; Service: Neurosurgery; Laterality: Bilateral; AORTOGRAM N/A 01/26/2024 Procedure: ABDOMINAL AORTIC ANGIOGRAM, LLE ANGIOGRAM, LEFT ANTERIOR TIBIAL ATHERECTOMY, LEFT ANTERIOR TIBIAL ANGIOPLASTY; Surgeon: Archie Olvera MD; Location: [facility]; Service: Vascular; Laterality: N/A; CONTRAST: 50 ML, FT: 2 MIN 54 SEC, DOSE: 66 MGY. BACK SURGERY FOR DISC HERNIATION CARDIAC CATHETERIZATION CARDIAC CATHETERIZATION N/A 09/04/2024 Procedure: Peripheral angiography - Left lower extremity angio - Right femoral access; Surgeon: Jared Marcano MD; Location: [facility]; Service: Peripheral Vascular; Laterality: N/A; CORONARY ANGIOPLASTY WITH STENT PLACEMENT stent x 1 INCISION AND DRAINAGE FOOT Left 06/17/2023 Procedure: LEFT FOOT DEBRIDEMENT WOUND VACUUM ASSISTED CLOSURE; Surgeon: Cecil Buenrostro Jr., MD;Location: [facility]; Service: Orthopedics; Laterality: Left; INCISION AND DRAINAGE LEG Left 07/25/2023 Procedure: INCISION AND DRAINAGE HEEL, WOUND VAC; Surgeon: Cecil Buenrostro Jr., MD; Location: [facility]; Service: Orthopedics; Laterality: Left; INTERVENTIONAL RADIOLOGY PROCEDURE N/A 05/02/2019 Procedure: IVC FILTER PLACEMENT; Surgeon: Pedro Zapien MD; Location: [facility]; Service: Interventional Radiology INTERVENTIONAL RADIOLOGY PROCEDURE Left 09/07/2024 Procedure: LEFT peroneal arteriovenous fistula embolization - Right femoral access; Surgeon: Jared Marcano MD; Location: [facility]; Service: Cardiovascular; Laterality: Left; Please coordinate with Gautam Patel ([facility] [phone] who will bring coils LUMBAR DISCECTOMY N/A 05/03/2019 Procedure: THORACIC LAMINECTOMY T11-12; Surgeon: Tyree Tan MD; Location: [facility]; Service: Neurosurgery Pediatric History Patient Parents Not on file Other Topics Concern Not on file Social History Narrative Not on file family history includes Alcohol abuse in his father. Allergies Allergen Reactions Keppra [Levetiracetam] Other (See Comments) Acute psychosis Bupropion Unknown (See Comments) Codeine Nausea Only Hydrocodone Unknown (See Comments) Ketorolac Tromethamine Unknown (See Comments) Medication: Current Facility-Administered Medications Medication Dose Route Frequency Provider Last Rate Last Admin acetaminophen (TYLENOL) tablet 650 mg 650 mg Oral Q4H PRN Luz Denson MD 650 mg at 06/02/25 1625 apixaban (ELIQUIS) tablet 5 mg 5 mg Oral BID Zakiya Mccormick DO 5 mg at 06/03/252106 baclofen (LIORESAL) tablet 10 mg 10 mg Oral Q12H Luz Denson MD 10 mg at 06/03/252106 sennosides-docusate (PERICOLACE) 8.6-50 MG per tablet 2 tablet 2 tablet Oral BID PRN Luz Denosn MD And polyethylene glycol (MIRALAX) packet 17 g 17 g Oral Daily PRN Luz Denson MD And bisacodyl (DULCOLAX) EC tablet 5 mg 5 mg Oral Daily PRN Luz Denson MD And bisacodyl (DULCOLAX) suppository 10 mg 10 mg Rectal Daily PRN Luz Denson MD Calcium Replacement - Follow Nurse / BPA Driven Protocol Not Applicable PRN Luz Denson MD carvedilol (COREG) tablet 3.125 mg 3.125 mg Oral BID With Meals Zakiya Mccormick DO 3.125 mg at 06/04/25 0835 clopidogrel (PLAVIX) tablet 75 mg 75 mg Oral Daily Luz Denson MD 75 mg at 06/03/25 0931 DAPTOmycin (CUBICIN) 550 mg in sodium chloride 0.9 % 50 mL IVPB 6 mg/kg (Adjusted) Intravenous [id number] Yan APRN 100 mL/hr at 06/04/25 0835 550 mg at 06/04/25 0835 dextrose (D50W) (25 g/50 mL) IV injection 25 g 25 g Intravenous Q15 Min PRN Luz Denson MD dextrose (GLUTOSE) oral gel 15 g 15 g Oral Q15 Min PRN Luz Denson MD finasteride (PROSCAR) tablet 5 mg 5 mg Oral Daily Zakiya Mccormick DO 5 mg at 06/04/25 0834 folic acid (FOLVITE) tablet 1 mg 1 mg Oral Daily Luz Denson MD 1 mg at 06/04/25 0834 [Held by provider] furosemide (LASIX) tablet 40 mg 40 mg Oral Daily Luz Holt MD gabapentin (NEURONTIN) capsule 200 mg 200 mg Oral TID Luz Denson MD 200 mg at06/04/25 0842 glucagon (GLUCAGEN) injection 1 mg 1 mg Intramuscular Q15 Min PRN Luz Holt MD insulin glargine (LANTUS, SEMGLEE) injection 25 Units 25 Units Subcutaneous Nightly Luz Denson MD 25 Units at 06/03/252109 Insulin Lispro (humaLOG) injection 2-7 Units 2-7 Units Subcutaneous 4x Daily AC & at Bedtime Luz Denson MD 2 Units at 06/03/252108 lamoTRIgine (LaMICtal) tablet 100 mg 100 mg Oral Daily Luz Denson MD 100 mg at 06/04/25 0835 lamoTRIgine (LaMICtal) tablet 250 mg 250 mg Oral Nightly Luz Denson MD 250 mgat 06/03/252106 Magnesium Standard Dose Replacement - Follow Nurse / BPA Driven Protocol Not Applicable PRN Luz Denson MD melatonin tablet 5 mg 5 mg Oral Nightly Luz Denson MD 5 mg at 06/03/252106 morphine injection 1 mg 1 mg Intravenous Q4H PRN Amanda Bermudez MD 1 mg at 06/03/25 1035 multivitamin with minerals 1 tablet 1 tablet Oral Daily Luz Denson MD 1 tablet at 06/04/25 0835 nitroglycerin (NITROSTAT) SL tablet 0.4 mg 0.4 mg Sublingual Q5 Min PRN Luz Holt MD ondansetron ODT (ZOFRAN-ODT) disintegrating tablet 4 mg 4 mg Oral Q6H PRN Junior Denson MD 4 mg at 06/02/25 1625 Or ondansetron (ZOFRAN) injection 4 mg 4 mg Intravenous Q6H PRN Luz Denson MD oxyCODONE (ROXICODONE) immediate release tablet 5 mg 5 mg Oral Q4H PRN Zakiya Mccormick DO 5 mg at 06/04/25 0425 pantoprazole (PROTONIX) EC tablet 40 mg 40 mg Oral BID Luz Denson MD 40 mg at06/04/25 0835 Phosphorus Replacement - Follow Nurse / BPA Driven Protocol Not Applicable PRN Luz Denson MD piperacillin-tazobactam (ZOSYN) 4.5 g IVPB in 100 mL NS MBP (CD) 4.5 g Intravenous Q8H Luz Denson MD 0 mL/hr at 06/04/25 0147 4.5 g at 06/04/25 0424 Potassium Replacement - Follow Nurse / BPA Driven Protocol Not Applicable PRN Luz Denson MD sodium chloride 0.9 % flush 10 mL 10 mL Intravenous Q12H Luz Denson MD 10 mL at 06/03/25 2109 sodium chloride 0.9 % flush 10 mL 10 mL Intravenous PRN Luz Denson MD 10 mL at 06/03/25 1156 sodium chloride 0.9 % infusion 40 mL 40 mL Intravenous PRN Luz Denson MD Antibiotics: Anti-Infectives (From admission, onward) Ordered Dose/Rate Route Frequency Start Stop 06/03/25 0707 DAPTOmycin (CUBICIN) 550 mg in sodium chloride 0.9 % 50 mL IVPB Ordering Provider: Alisa Yan APRN 6 mg/kg ?? 94.6 kg (Adjusted) 100 mL/hr over 30 Minutes Intravenous Every 24 Hours 06/03/25 0900 06/10/25 0859 06/02/25 1522 Linezolid (ZYVOX) 600 mg 300 mL Status: Discontinued Ordering Provider: Luz Denson MD 600 mg 300 mL/hr over 60 Minutes Intravenous Every 12 Hours 06/03/25 0400 06/03/25 0707 06/02/25 1523 piperacillin-tazobactam (ZOSYN) 4.5 g IVPB in 100 mL NS MBP (CD) Ordering Provider: Luz Denson MD 4.5 g over 4 Hours Intravenous Every 8 Hours 06/02/25199906/09/25 19506/02/25 1341 Linezolid (ZYVOX) 600 mg 300 mL Ordering Provider: Mary Miller MD 600 mg 300 mL/hr over 60 Minutes Intravenous Once 06/02/25 1357 06/02/25 1741 06/02/25 1338 vancomycin 2500 mg/500 mL 0.9% NS IVPB ([facility]) Status: Discontinued Ordering Provider: Mary Miller MD 20 mg/kg ?? 120 kg over 150 Minutes Intravenous Once 06/02/25 1354 06/02/25 1341 06/02/25 1338 piperacillin-tazobactam (ZOSYN) 3.375 g IVPB in 100 mL NS MBP (CD) Ordering Provider: Mary Miller MD 3.375 g over 30 Minutes Intravenous Once 06/02/25 1354 06/02/25 1604 Review of Systems Constitutional-- No Fever, chills or sweats. Appetite good, and no malaise. Has fatigue. Heent-- No new vision, hearing or throat complaints. No epistaxis or oral sores. Denies odynophagiaor dysphagia. No flashers, floaters or eye pain. No odynophagia or dysphagia. No headache, photophobia or neck stiffness. CV-- No chest pain, palpitation or syncope Resp-- No SOB/cough/Hemoptysis GI- No nausea, vomiting, or diarrhea. No hematochezia, melena, or hematemesis. Denies jaundice or chronic liver disease. -- see above Lymph- no swollen lymph nodes in neck/axilla or groin. Heme- No active bruising or bleeding; no Hx of DVT or PE. MS-- no swelling or pain in the bones or joints of arms/legs. No new back pain. Neuro-- No acute focal weakness or numbness in the arms or legs. No seizures.chronically debilitated Full 12 point review of systems reviewed and negative otherwise for acute complaints, except for above Physical Exam: Vital Signs BP 125/57 (BP Location: Right arm, Patient Position: Lying) Pulse 70 Temp 98.1 ??F (36.7 ??C) (Oral) Resp 16 Ht 182.9 cm (72 ) Wt 120 kg (265 lb) SpO2 95% BMI 35.94 kg/m?? GENERAL: Awake and alert, in no acute distress. Chronically debilitated HEENT: Normocephalic, atraumatic. No conjunctival injection. No icterus. Oropharynx clear without evidence of thrush or exudate. No evidence of periodontal disease. NECK: Supple without nuchal rigidity. No mass. LYMPH: No cervical, axillary or inguinal lymphadenopathy. HEART: RRR; No murmur, rubs, gallops. LUNGS: Clear to auscultation bilaterally without wheezing, rales, rhonchi. Normal respiratory effort. Nonlabored. No dullness. ABDOMEN: Soft, nontender, nondistended. Positive bowel sounds. No rebound or guarding. NO mass or HSM. EXT: see below : With Ambrose catheter. MSK: FROM without joint effusions noted arms/legs. SKIN: Warm and dry without cutaneous eruptions on Inspection/palpation. NEURO: Oriented to PPT. Right BKA noted Left lower leg with vague erythema from knee to foot, wound on the dorsal side with some mild tenderness but no discrete fluctuance; no visible purulence, leg erythema Laboratory Data Results from last 7 days Lab Units 06/04/25 0505 06/03/25 0542 06/02/25 1103 WBC 10*3/mm3 9.17 9.13 7.85 HEMOGLOBIN g/dL 8.8* 8.6* 9.7* HEMATOCRIT % 28.1* 28.2* 31.8* PLATELETS 10*3/mm3 248 272 262 Results from last 7 days Lab Units 06/04/25 0505 SODIUM mmol/L 137 POTASSIUM mmol/L 4.4 CHLORIDE mmol/L 108* CO2 mmol/L 19.4* BUN mg/dL 21.8 CREATININE mg/dL 1.01 GLUCOSE mg/dL 79 CALCIUM mg/dL 8.3* Results from last 7 days Lab Units 06/03/25 0542 ALK PHOS U/L 95 BILIRUBIN mg/dL 0.2 ALT (SGPT) U/L 12 AST (SGOT) U/L 18 Results from last 7 days Lab Units 06/04/25 0505 SED RATE mm/hr 127* Results from last 7 days Lab Units 06/04/25 0505 CRP mg/dL 9.09* Estimated Creatinine Clearance: 89.8 mL/min (by C-G formula based on SCr of 1.01 mg/dL). Microbiology: Radiology: Imaging Results (Last 72 Hours) Procedure Component Value Units Date/Time CT Abdomen Pelvis With Contrast [[id number]] Collected: 06/02/25 1217 Updated: 06/02/25 1225 Narrative: CT ABDOMEN PELVIS W CONTRAST Date of Exam: 06/02/2025 11:43 AM EDT Indication: Hematuria, low abdomen pain. Comparison: 06/17/2023 Technique: Axial CT images were obtained of the abdomen and pelvis following the uneventful intravenous administration of iodinated contrast. Reconstructed coronal and sagittal images were also obtained. Automated exposure control and iterative construction methods were used. FINDINGS: Lung bases: No masses. No consolidation. Liver:No masses. No intrahepatic biliary ductal dilatation. Spleen:No masses. No perisplenic hematoma. Pancreas:No pancreatic masses. No evidence of pancreatitis. Gallbladder and common bile duct:No evidence of cholelithiasis. No evidence of cholecystitis. Adrenal glands:No adrenal masses Kidneys and ureters:No kidney stones. No renal masses.No calculi present within the ureters. Normalcaliber ureters. Urinary bladder: Irregular urinary bladder wall thickening concerning for cystitis. Small locules of gas within the urinary bladder may be due to a gas- forming organism or recent instrumentation. Small bowel:Normal caliber small bowel. Large bowel:No diverticulosis or diverticulitis. No large bowel masses are appreciated Appendix: Normal GENITOURINARY: Normal prostate Ascites or pneumoperitoneum:None. Adenopathy:None present Osseous structures: The proximal femurs are intact. Significant degenerative changes of the hips. The pubic bones are intact. The sacrum and sacroiliac joints are normal. Chronic mild loss of height of T11 and T12. Vacuum disc phenomenon at T10-T11, T11-T12, and L1-L2. Multilevel facet disease. No spondylolysis. Multilevel facet disease. Other findings: IVC filter. Atheromatous disease of the abdominal aorta and visualized branches. Impression: Shaggy urinary bladder wall thickening concerning for cystitis. Locules of gas within the urinary bladder concerning for a gas-forming organism. Electronically Signed: Feliciano Garcia MD 06/02/2025 12:22 PM EDT Workstation ID: [id number] XR Chest 1 View [[id number]] Collected: 06/02/251042 Updated: 06/02/251047 Narrative: XR CHEST 1 VW Date of Exam: 06/02/2025 10:30 AM EDT Indication: Weakness. Comparison: Chest radiograph 09/10/2024. Findings: Enlarged cardiac silhouette, unchanged. Thoracic aortic calcifications. Chronic/senescent changes of the lungs. No distinct airspace consolidation. No sizable pleural effusion. No pneumothorax. Thoracic spondylosis. Impression: Impression: Stable appearance of the chest without focal airspace consolidation. Electronically Signed: Rony Monsalve MD 06/02/2025 10:45 AM EDT Workstation ID: [id number] Impression: --acute left lower leg/foot cellulitis and wound infection, prior culture July 2024 with ESBL Klebsiella pneumoniae and pseudomonas aeruginosa, pseudomonas was sensitive to Merrem per microbiology lab at [facility]. He has had multiple surgeries and multiple practitioners recommend higher level amputation which he has refused. he has refused outpatient IV antibiotics and he has refused placement for longer durations of IV antibiotics on prior admits. This refusal of care places him at increased risk for poor outcome. Earlier in 2024 he was discharged to the care of Dr. Oneal, his outpatient ID doctor and Dr Faust his compensation administrator for further care/workup ; readmission May 2025 with acute worsening in redness and pain to left lower extremity. High risk for furtherserious morbidity and other serious sequela including persistent/recurrent or nonhealing wounds, per sistent/progressive or recurrent infection and risk for further functional/limb loss, higher-level amputation and other dire consequences including sepsis/mortalityetc. he remains opposed to amputation, he has previously refused placement/IV abx as above; he voices understanding his poor prognosis overall including risks for dire consequences; past Cx with MRSA/PSA/ESBL at prior admissions; culture June 02, 2025 with Proteus/MRSA/gram-negative cooper --Acute hematuria with chronic indwelling Ambrose catheter. Culture with gram- negative cooper; nursing reports Ambrose catheter has been changed since admission --Peripheral arterial disease by past evaluation of vascular team in addition to history DVT. 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 --Monitor IV and IV antibiotic with risk for systemic complication and potential drug interaction, etc.. --Prognosis generally poor with respect to the left lower extremity, see above regarding patient's prior refusal for higher level amputation and continues to voice understanding risk for dire consequences --Highly complex set of issues with high risk for further serious morbidity and other serious sequela This visit included the following complex service elements: Complex medical decision-making associated with antimicrobial prescribing. In-depth chart review with high level synthesis for complex diagnoses. Counseled patients, family members, and/or caregivers regarding antimicrobial stewardship and antibiotic resistance. Communicated with the clinical microbiology lab. Britton Flor MD 06/04/2025 * Zakiya Mccormick, DO - 06/03/2025 6:18 AM EDT Images from the original note were not included. [facility] Medicine Services PROGRESS NOTE Patient Name: Vitaly Pool : [id number] Date of Admission: 06/02/2025 Primary Care Physician: Gustavo Mehta MD Subjective Subjective CC: Leg wound HPI: Leg was wrapped by nurse yesterday, says it has been hurting more and felt like it was getting moreinfection Objective Objective Vital Signs: Temp: [97.5 ??F (36.4 ??C)-99.1 ??F (37.3 ??C)] 99.1 ??F (37.3 ??C) Heart Rate: [73-92] 79 Resp: [16-18] 16 BP: (110-157)/(53-123) 121/64 Physical Exam: Constitutional: No acute distress, awake, alert HENT: NCAT, mucous membranes moist Respiratory: Respiratory effort normal Gastrointestinal: ambrose with clear urine Musculoskeletal: L leg with erythema and draining up to knee, foot wrapped Psychiatric: Appropriate affect, cooperative Neurologic: Oriented x 3, speech clear Skin: No rashes Results Reviewed: LAB RESULTS: Lab 06/03/25 0542 06/02/25 1103 WBC 9.13 7.85 HEMOGLOBIN 8.6* 9.7* HEMATOCRIT 28.2* 31.8* PLATELETS 272 262 NEUTROS ABS 6.10 6.35 IMMATURE GRANS (ABS) 0.04 0.03 LYMPHS ABS 1.60 0.77 MONOS ABS 1.06* 0.63 EOS ABS 0.29 0.01 MCV 75.8* 74.6* PROCALCITONIN -- 0.22 LACTATE -- 0.9 Lab 06/03/25 0542 06/02/25 1145 06/02/25 1138 06/02/25 1103 SODIUM 136 -- -- 134* POTASSIUM 4.6 -- -- 4.5 CHLORIDE 108* -- -- 106 CO2 19.5* -- -- 18.6* ANION GAP 8.5 -- -- 9.4 BUN 23.2* -- -- 30.6* CREATININE 0.95 1.10 1.10 0.99 EGFR 85.6 -- -- 81.4 GLUCOSE 122* -- -- 182* CALCIUM 8.2* -- -- 8.6 MAGNESIUM 1.8 -- -- -- PHOSPHORUS 2.9 -- -- -- Lab 06/03/25 0542 06/02/25 1103 TOTAL PROTEIN 6.2 7.1 ALBUMIN 3.0* 3.4* GLOBULIN 3.2 3.7 ALT (SGPT) 12 14 AST (SGOT) 18 18 BILIRUBIN 0.2 0.2 ALK PHOS 95 112 Brief Urine Lab Results (Last result in the past 365 days) Color Clarity Blood Leuk Est Nitrite Protein CREAT Urine HCG 06/02/25 1231 Yellow Turbid Large (3+) Large (3+) Positive >=300 mg/dL (3+) Microbiology Results Abnormal Procedure Component Value - Date/Time Wound Culture - Swab, Leg, Left [[id number]] (Abnormal) Collected: 06/02/25 1104 Lab Status: Preliminary result Specimen: Swab from Leg, Left Updated: 06/03/25 0746 Wound Culture Light growth (2+) Gram Negative Bacilli Gram Stain Occasional WBCs seen Rare (1+) Gram positive cocci in pairs CT Abdomen Pelvis With Contrast Result Date: 06/02/2025 CT ABDOMEN PELVIS W CONTRAST Date of Exam: 06/02/2025 11:43 AM EDT Indication: Hematuria, low abdomen pain. Comparison: 06/17/2023 Technique: Axial CT images were obtained of the abdomen and pelvis following the uneventful intravenous administration of iodinated contrast. Reconstructed coronal and sagittal images were also obtained. Automated exposure control and iterative construction methods wereused. FINDINGS: Lung bases: No masses. No consolidation. Liver:No masses. No intrahepatic biliary ductal dilatation. Spleen:No masses. No perisplenic hematoma. Pancreas:No pancreatic masses. No evidence of pancreatitis. Gallbladder and common bile duct:No evidence of cholelithiasis. No evidence of cholecystitis. Adrenal glands:No adrenal masses Kidneys and ureters:No kidney stones. No renal masses.No calculi present within the ureters. Normal caliber ureters. Urinary bladder: Irregular urinary bladder wall thickening concerning for cystitis. Small locules of gas within the urinary bladder maybe due to a gas-forming organism or recent instrumentation. Small bowel:Normal caliber small bowel.Large bowel:No diverticulosis or diverticulitis. No large bowel masses are appreciated Appendix: Normal GENITOURINARY: Normal prostate Ascites or pneumoperitoneum:None. Adenopathy:None present Osseous structures: The proximal femurs are intact. Significant degenerative changes of the hips. The pubic bones are intact. The sacrum and sacroiliac joints are normal. Chronic mild loss of height of T11 and T12. Vacuum disc phenomenon at T10-T11, T11-T12, and L1-L2. Multilevel facet disease. No spondylolysis. Multilevel facet disease. Other findings: IVC filter. Atheromatous disease of the abdominal aorta and visualized branches. Impression: Shaggy urinary bladder wall thickening concerning for cystitis. Locules of gas within the urinary bladder concerning for a gas-forming organism. Electronically Signed: Feliciano Garcia MD 06/02/2025 12:22 PM EDT Workstation ID: [id number] XR Chest 1 View Result Date: 06/02/2025 XR CHEST 1 VW Date of Exam: 06/02/2025 10:30 AM EDT Indication: Weakness. Comparison: Chest radiograph 09/10/2024. Findings: Enlarged cardiac silhouette, unchanged. Thoracic aortic calcifications. Chronic/senescent changes of the lungs. No distinct airspace consolidation. No sizable pleural effusion. No pneumothorax. Thoracic spondylosis. Impression: Impression: Stable appearance of the chest without focal airspace consolidation. Electronically Signed: Rony Monsalve MD 06/02/2025 10:45 AM EDT Workstation ID: [id number] Results for orders placed during the hospital encounter of 08/31/24 Adult Transthoracic Echo Complete W/ Cont if Necessary Per Protocol 09/12/2024 4:10 PM Interpretation Summary Left ventricular systolic function is normal. Calculated left ventricular EF = 52.5% There is a trivial pericardial effusion. The aortic valve exhibits sclerosis. Mitral annular calcification is present. I have personally reviewed the therapy plans: [] PT/OT/ ST Therapy Plans Current medications: Scheduled Meds:apixaban, 5 mg, Oral, BID baclofen, 10 mg, Oral, Q12H carvedilol, 3.125 mg, Oral, BID With Meals clopidogrel, 75 mg, Oral, Daily DAPTOmycin, 6 mg/kg (Adjusted), Intravenous, Q24H finasteride, 5 mg, Oral, Daily folic acid, 1 mg, Oral, Daily [Held by provider] furosemide, 40 mg, Oral, Daily gabapentin, 200 mg, Oral, TID insulin glargine, 25 Units, Subcutaneous, Nightly insulin lispro, 2-7 Units, Subcutaneous, 4x Daily AC & at Bedtime lamoTRIgine, 100 mg, Oral, Daily lamoTRIgine, 250 mg, Oral, Nightly melatonin, 5 mg, Oral, Nightly multivitamin with minerals, 1 tablet, Oral, Daily pantoprazole, 40 mg, Oral, BID piperacillin-tazobactam, 4.5 g, Intravenous, Q8H sodium chloride, 10 mL, Intravenous, Q12H Continuous Infusions: PRN Meds:. acetaminophen senna-docusate sodium AND polyethylene glycol AND bisacodyl AND bisacodyl Calcium Replacement - Follow Nurse / BPA Driven Protocol dextrose dextrose glucagon (human recombinant) Magnesium Standard Dose Replacement - Follow Nurse / BPA Driven Protocol Morphine nitroglycerin ondansetron ODT OR ondansetron oxyCODONE Phosphorus Replacement - Follow Nurse / BPA Driven Protocol Potassium Replacement - Follow Nurse / BPA Driven Protocol sodium chloride sodium chloride Assessment & Plan Assessment & Plan Active Hospital Problems Diagnosis POA Cellulitis [L03.90] Yes Resolved Hospital Problems No resolved problems to display. Brief Hospital Course to date: Vitaly Pool is a 70 y.o. male with HTN, HLD, CAD s/p stenting, PAD s/p R BKA and LLE revascularization with toe amputations, recurrent LLE cellulitis and wound infections, IDT2DM, obesity, chronic debility, chronic ambrose, seizures admitted for new hematuria and worsening redness of his LLE. Gross hematuria - resolved Cystitis Chronic ambrose Air in bladder - chills but afebrile, normal WBC but neutrophilia, normal procal and lactate - ambrose exchanged in the ED with nonbloody urine return after placement. Gross hematuria may be dueto recent exchange (05/21) or infection - CT showing signs of cystitis and air in bladder. - Has grown E faecalis VRE in the past. - UA with large blood, WBC, and bacteria - Urine culture pending - Blood culture pending - Continue dapto and zosyn for cellulitis, ID consulted Recurrent LLE cellulitis IDT2DM - Lantus and SSI, titrate as needed HTN - Lasix on hold - Resume carvedilol 06/03 Chronic pain Neuropathy - continue home gabapentin, baclofen Seizures - continue home lamotrigine GERD - PPI Expected Discharge Location and Transportation: home Expected Discharge Expected discharge date/ time has not been documented. VTE Prophylaxis: Pharmacologic VTE prophylaxis orders are present. AM-PAC 6 Clicks Score (PT): 7 (06/02/251999) CODE STATUS: Code Status and Medical Interventions: CPR (Attempt to Resuscitate); Full Support Ordered at: 06/02/25 1500 Code Status (Patient has no pulse and is not breathing): CPR (Attempt to Resuscitate) Medical Interventions (Patient has pulse or is breathing): Full Support Level Of Support Discussed With: Patient Zakiya Fernandez OswaldpatriciaDO 06/03/25 documented in this encounter H&P Notes * Luz Denson MD - 06/02/2025 2:33 PM EDT Images from the original note were not included. [facility] Medicine Services HISTORY AND PHYSICAL Patient Name: Vitaly Pool : 1955 Primary Care Physician: Gustavo Mehta MD Date of admission: 06/02/2025 Subjective Subjective Chief Complaint: Hematuria, HPI: Vitaly Pool is a 70 y.o. male with HTN, HLD, CAD s/p stenting, PAD s/p R BKA and LLE revascularization with toe amputations, recurrent LLE cellulitis and wound infections, IDT2DM, obesity, chronic debility, chronic ambrose who presents for 4 days of malaise, new hematuria and worsening redness ofhis LLE. Pt reports that his LLE has been getting more erythematous over several weeks. His compensation administrator put him on an oral abx last month but this did not work. No worsening/new drainage from his wounds. Over the last week he feels like the redness has gotten worse. He has not had any worsening of the pain. 4 days ago he noticed an episode of gross hematuria. He had his ambrose exchanged last week without any problems. He reports worsening malaise and chill over the last couple days but no measures fevers. In the ED pt is afebrile, normal HR, normal WBC but does have neutrophilia, normal lactate and procal. CT scan abdomen shows signs of cystitis and intra bladder air from instrumentation vs infection. Personal History Past Medical History: Diagnosis Date Anemia Cellulitis Diabetes mellitus Frequent falls History of DVT (deep vein thrombosis) Hyperlipidemia Hypertension Migraines Myocardial infarction Peripheral neuropathy Pneumonia Spinal stenosis Wears dentures FULL Wears glasses Past Surgical History: Procedure Laterality Date ABOVE KNEE AMPUTATION Right AMPUTATION DIGIT Left 01/28/2024 Procedure: SECOND AND THIRD TOE AMPUTATION LEFT; Surgeon: Cecil Buenrostro Jr., MD; Location: [facility] OR; Service: Orthopedics; Laterality: Left; ANTERIOR CERVICAL DISCECTOMY W/ FUSION Bilateral 07/17/2020 Procedure: Cervical discectomy anterior with fusion C3-4; Surgeon: Tyree Tan MD; Location:[facility]; Service: Neurosurgery; Laterality: Bilateral; AORTOGRAM N/A 01/26/2024 Procedure: ABDOMINAL AORTIC ANGIOGRAM, LLE ANGIOGRAM, LEFT ANTERIOR TIBIAL ATHERECTOMY, LEFT ANTERIOR TIBIAL ANGIOPLASTY; Surgeon: Archie Olvera MD; Location: [facility]; Service: Vascular; Laterality: N/A; CONTRAST: 50 ML, FT: 2 MIN 54 SEC, DOSE: 66 MGY. BACK SURGERY FOR DISC HERNIATION CARDIAC CATHETERIZATION CARDIAC CATHETERIZATION N/A 09/04/2024 Procedure: Peripheral angiography - Left lower extremity angio - Right femoral access; Surgeon: Jared Marcano MD; Location: [facility]; Service: Peripheral Vascular; Laterality: N/A; CORONARY ANGIOPLASTY WITH STENT PLACEMENT stent x 1 INCISION AND DRAINAGE FOOT Left 06/17/2023 Procedure: LEFT FOOT DEBRIDEMENT WOUND VACUUM ASSISTED CLOSURE; Surgeon: Cecil Buenrostro Jr., MD;Location: [facility]; Service: Orthopedics; Laterality: Left; INCISION AND DRAINAGE LEG Left 07/25/2023 Procedure: INCISION AND DRAINAGE HEEL, WOUND VAC; Surgeon: Cecil Buenrostro Jr., MD; Location: [facility]; Service: Orthopedics; Laterality: Left; INTERVENTIONAL RADIOLOGY PROCEDURE N/A 05/02/2019 Procedure: IVC FILTER PLACEMENT; Surgeon: Pedro Zapien MD; Location: [facility] LOCATION; Service: Interventional Radiology INTERVENTIONAL RADIOLOGY PROCEDURE Left 09/07/2024 Procedure: LEFT peroneal arteriovenous fistula embolization - Right femoral access; Surgeon: Jared Marcano MD; Location: [facility]IVE LOCATION; Service: Cardiovascular; Laterality: Left; Please coordinate with Gautam Patel ([facility]) [phone] who will bring coils LUMBAR DISCECTOMY N/A 05/03/2019 Procedure: THORACIC LAMINECTOMY T11-12; Surgeon: Tyree Tan MD; Location: [facility]; Service: Neurosurgery Family History: family history includes Alcohol abuse in his father. Social History: reports that he has never smoked. He has never been exposed to tobacco smoke. He has never used smokeless tobacco. He reports current drug use. Drug: Marijuana. He reports that he does not drink alcohol. Social History Social History Narrative Not on file Medications: Available home medication information reviewed. BASAGLAR KWIKPEN, apixaban, baclofen, carvedilol, clopidogrel, finasteride, folic acid, furosemide,gabapentin, lamoTRIgine, methenamine, multivitamin with minerals, ondansetron, pantoprazole, sacubitril-valsartan, and vitamin C Allergies Allergen Reactions Keppra [Levetiracetam] Other (See Comments) Acute psychosis Bupropion Unknown (See Comments) Codeine Nausea Only Hydrocodone Unknown (See Comments) Ketorolac Tromethamine Unknown (See Comments) Objective Objective Vital Signs: Temp: [98.7 ??F (37.1 ??C)] 98.7 ??F (37.1 ??C) Heart Rate: [67-92] 88 Resp: [18] 18 BP: (93-156)/(43-123) 136/81 Physical Exam Constitutional: General: He is not in acute distress. HENT: Head: Normocephalic and atraumatic. Cardiovascular: Rate and Rhythm: Normal rate and regular rhythm. Heart sounds: No murmur heard. Pulmonary: Effort: Pulmonary effort is normal. No respiratory distress. Abdominal: General: There is no distension. Palpations: Abdomen is soft. Musculoskeletal: Left lower leg: Edema present. Neurological: General: No focal deficit present. Mental Status: He is alert. Mental status is at baseline. Psychiatric: Mood and Affect: Mood normal. Thought Content: Thought content normal. Result Review: I have personally reviewed the results from the time of this admission to 06/02/2025 16:13 EDT and agree with these findings: [x] Laboratory list / accordion [x] Microbiology [x] Radiology [x] EKG/Telemetry [x] Cardiology/Vascular [x] Pathology [x] Old records [x] Other: Most notable findings include: discussed in HPI and assessment and plan LAB RESULTS: Lab 06/02/25 1103 WBC 7.85 HEMOGLOBIN 9.7* HEMATOCRIT 31.8* PLATELETS 262 NEUTROS ABS 6.35 IMMATURE GRANS (ABS) 0.03 LYMPHS ABS 0.77 MONOS ABS 0.63 EOS ABS 0.01 MCV 74.6* PROCALCITONIN 0.22 LACTATE 0.9 Lab 06/02/25 1145 06/02/25 1138 06/02/25 1103 SODIUM -- -- 134* POTASSIUM -- -- 4.5 CHLORIDE -- -- 106 CO2 -- -- 18.6* ANION GAP -- -- 9.4 BUN -- -- 30.6* CREATININE 1.10 1.10 0.99 EGFR -- -- 81.4 GLUCOSE -- -- 182* CALCIUM -- -- 8.6 Lab 06/02/25 1103 TOTAL PROTEIN 7.1 ALBUMIN 3.4* GLOBULIN 3.7 ALT (SGPT) 14 AST (SGOT) 18 BILIRUBIN 0.2 ALK PHOS 112 UA 06/02/2025 12:31 Urinalysis Squamous Epithelial Cells, UA Unable to determine due to loaded field Specific [place], UA 1.019 Ketones, UA Negative Blood, UA Large (3+) Leukocytes, UA Large (3+) Nitrite, UA Positive RBC, UA Too Numerous to Count WBC, UA Too Numerous to Count Bacteria, UA 4+ Microbiology Results (last 10 days) Procedure Component Value - Date/Time COVID-19, FLU A/B, RSV PCR 1 HR TAT - Swab, Nasopharynx [[id number]] (Normal) Collected: 06/02/25 1125 Lab Status: Final result Specimen: Swab from Nasopharynx Updated: 06/02/25 1239 COVID19 Not Detected Influenza A PCR Not Detected Influenza B PCR Not Detected RSV, PCR Not Detected Wound Culture - Swab, Leg, Left [[id number]] Collected: 06/02/25 1104 Lab Status: Preliminary result Specimen: Swab from Leg, Left Updated: 06/02/25 1443 Gram Stain Occasional WBCs seen Rare (1+) Gram positive cocci in pairs CT Abdomen Pelvis With Contrast Result Date: 06/02/2025 CT ABDOMEN PELVIS W CONTRAST Date of Exam: 06/02/2025 11:43 AM EDT Indication: Hematuria, low abdomen pain. Comparison: 06/17/2023 Technique: Axial CT images were obtained of the abdomen and pelvis following the uneventful intravenous administration of iodinated contrast. Reconstructed coronal and sagittal images were also obtained. Automated exposure control and iterative construction methods wereused. FINDINGS: Lung bases: No masses. No consolidation. Liver:No masses. No intrahepatic biliary ductal dilatation. Spleen:No masses. No perisplenic hematoma. Pancreas:No pancreatic masses. No evidence of pancreatitis. Gallbladder and common bile duct:No evidence of cholelithiasis. No evidence of cholecystitis. Adrenal glands:No adrenal masses Kidneys and ureters:No kidney stones. No renal masses.No calculi present within the ureters. Normal caliber ureters. Urinary bladder: Irregular urinary bladder wall thickening concerning for cystitis. Small locules of gas within the urinary bladder maybe due to a gas-forming organism or recent instrumentation. Small bowel:Normal caliber small bowel.Large bowel:No diverticulosis or diverticulitis. No large bowel masses are appreciated Appendix: Normal GENITOURINARY: Normal prostate Ascites or pneumoperitoneum:None. Adenopathy:None present Osseous structures: The proximal femurs are intact. Significant degenerative changes of the hips. The pubic bones are intact. The sacrum and sacroiliac joints are normal. Chronic mild loss of height of T11 and T12. Vacuum disc phenomenon at T10-T11, T11-T12, and L1-L2. Multilevel facet disease. No spondylolysis. Multilevel facet disease. Other findings: IVC filter. Atheromatous disease of the abdominal aorta and visualized branches. Impression: Shaggy urinary bladder wall thickening concerning for cystitis. Locules of gas within the urinary bladder concerning for a gas-forming organism. Electronically Signed: Feliciano Garcia MD 06/02/2025 12:22 PM EDT Workstation ID: [id number] XR Chest 1 View Result Date: 06/02/2025 XR CHEST 1 VW Date of Exam: 06/02/2025 10:30 AM EDT Indication: Weakness. Comparison: Chest radiograph 09/10/2024. Findings: Enlarged cardiac silhouette, unchanged. Thoracic aortic calcifications. Chronic/senescent changes of the lungs. No distinct airspace consolidation. No sizable pleural effusion. No pneumothorax. Thoracic spondylosis. Impression: Impression: Stable appearance of the chest without focal airspace consolidation. Electronically Signed: Rony Monsalve MD 06/02/2025 10:45 AM EDT Workstation ID: [id number] Results for orders placed during the hospital encounter of 08/31/24 Adult Transthoracic Echo Complete W/ Cont if Necessary Per Protocol 09/12/2024 4:10 PM Interpretation Summary Left ventricular systolic function is normal. Calculated left ventricular EF = 52.5% There is a trivial pericardial effusion. The aortic valve exhibits sclerosis. Mitral annular calcification is present. Assessment & Plan Assessment & Plan Cellulitis Vitaly Pool is a 70 y.o. male with HTN, HLD, CAD s/p stenting, PAD s/p R BKA and LLE revascularization with toe amputations, recurrent LLE cellulitis and wound infections, IDT2DM, obesity, chronic debility, chronic ambrose, seizures who presents for 4 days of malaise, new hematuria and worsening redness of his LLE. Gross hematuria - resolved Cystitis Chronic ambrose Air in bladder - chills but afebrile, normal WBC but neutrophilia, normal procal and lactate - ambrose exchanged in the ED with nonbloody urine return after placement. Gross hematuria may be dueto recent exchange (05/21) or infection - CT showing signs of cystitis and air in bladder. Pt with mild new abdominal pain. Has grown E faecalis VRE in the past. - UA with large blood, WBC, and bacteria - follow up urine cultures - follow up blood cultures - discussed with pharmacy team, will start Linezolid and zosyn for UTI and cellulitis Recurrent LLE cellulitis Chronic LLE foot wounds - worsening erythema over several weeks despite oral abx - reports he saw ID in [place] a while ago but they said there was nothing more to do at that time. He follows with podiatry who sent the po abx - pt has most recently grown MRSA and pseudomonas 2023. Dicussed with pharmacy team, will start with linezolid and zosyn - pt has also grown proteus ESBL but this was 2022 [facility]. Flor has followed pt in the past, will for ID to consult - WOC consult PVD s/p R BKA, LLE revascularization and toe amputation - followed with Dr. Marcano - continue plavix - pt adamant he does not want any further amputations IDT2DM - reports 56u lantus nightly - will start with 25u lantus nightly and SSI, adjust as needed HTN - will hold lasix today in the setting of infection - had one episode of hypotension that resolved with IVF - hold coreg tonight, may be able to restart in the AM Chronic pain Neuropathy - continue home gabapentin, baclofen Seizures - continue home lamotrigine GERD - PPI Pt unsure of other home meds, med rec pending VTE Prophylaxis: Pharmacologic VTE prophylaxis orders are present. CODE STATUS: Code Status and Medical Interventions: CPR (Attempt to Resuscitate); Full Support Ordered at: 06/02/25 1500 Code Status (Patient has no pulse and is not breathing): CPR (Attempt to Resuscitate) Medical Interventions (Patient has pulse or is breathing): Full Support Level Of Support Discussed With: Patient Expected Discharge Expected discharge date/ time has not been documented. Luz Denson MD 06/02/25 documented in this encounter Consult Notes * Burke Vogel MD - 06/03/2025 6:18 AM EDTAssociated Order(s): IP CONSULT TO INFECTIOUS DISEASES Images from the original note were not included. INFECTIOUS DISEASE CONSULT/INITIAL HOSPITAL VISIT Vitaly Pool 1955 [id number] Date of Consult: 06/03/2025 Admission Date: 06/02/2025 Requesting Provider: Dr. Mccormick Evaluating Physician: Burke Vogel MD CC: LLE pain Reason for Consultation: recurrent LLE infection History of present illness: Patient is a 70 y.o. male, known to Dr. Flor, with PMH DM, frequent falls, DVT, HTN, PAD s/p right BKA, pseudoseizures,chronic ambrose, recurrent LLE cellulitis, obesity, seen today for a left lowerextremity cellulitis. Prior cultures of the wounds with MRSA, ESBL Klebsiella, ESBL Proteus, and Pse udomonas. Has undergone revascularizations of left lower extremity by Krys Velazquez in past. Developed weakness, hematuria, and worsening redness of his left lower extremity prompting his presentation tothe ED. Recently restarted on oral antibiotics by podiatry without improvement. He has been afebrile without leukocytosis. Admitting labs with WBC 7.85, LAC 0.9, PCT 0.22, Scr 0.99, ALT 14, AST 18, and UA with TNTC RBCs, WBCs., and loaded field of squamous epithelial cells. CXR without focal airspace consolidation. CT with urinary bladder wall thickening concerning for cystitis, locules of gas within the bladder concerning for a gas forming organism. Gram stain of left leg wounds with occasional WBCs, rare GPC in pairs. Started on Linezolid and zosyn and we were consulted for evaluation and treatment. Past Medical History: Diagnosis Date Anemia Cellulitis Diabetes mellitus Frequent falls History of DVT (deep vein thrombosis) Hyperlipidemia Hypertension Migraines Myocardial infarction Peripheral neuropathy Pneumonia Spinal stenosis Wears dentures FULL Wears glasses Past Surgical History: Procedure Laterality Date ABOVE KNEE AMPUTATION Right AMPUTATION DIGIT Left 01/28/2024 Procedure: SECOND AND THIRD TOE AMPUTATION LEFT; Surgeon: Cecil Buenrostro Jr., MD; Location: [facility]; Service: Orthopedics; Laterality: Left; ANTERIOR CERVICAL DISCECTOMY W/ FUSION Bilateral 07/17/2020 Procedure: Cervical discectomy anterior with fusion C3-4; Surgeon: Tyree Tan MD; Location: [facility]; Service: Neurosurgery; Laterality: Bilateral; AORTOGRAM N/A 01/26/2024 Procedure: ABDOMINAL AORTIC ANGIOGRAM, LLE ANGIOGRAM, LEFT ANTERIOR TIBIAL ATHERECTOMY, LEFT ANTERIOR TIBIAL ANGIOPLASTY; Surgeon: Archie Olvera MD; Location: [facility]; Service: Vascular; Laterality: N/A; CONTRAST: 50 ML, FT: 2 MIN 54 SEC, DOSE: 66 MGY. BACK SURGERY FOR DISC HERNIATION CARDIAC CATHETERIZATION CARDIAC CATHETERIZATION N/A 09/04/2024 Procedure: Peripheral angiography - Left lower extremity angio - Right femoral access; Surgeon: Jared Marcano MD; Location: [facility] LOC[facility]; Service: Peripheral Vascular; Laterality: N/A; CORONARY ANGIOPLASTY WITH STENT PLACEMENT stent x 1 INCISION AND DRAINAGE FOOT Left 06/17/2023 Procedure: LEFT FOOT DEBRIDEMENT WOUND VACUUM ASSISTED CLOSURE; Surgeon: Cecil Buenrostro Jr., MD;Location: [facility]; Service: Orthopedics; Laterality: Left; INCISION AND DRAINAGE LEG Left 07/25/2023 Procedure: INCISION AND DRAINAGE HEEL, WOUND VAC; Surgeon: Cecil Buenrostro Jr., MD; Location: [facility]; Service: Orthopedics; Laterality: Left; INTERVENTIONAL RADIOLOGY PROCEDURE N/A 05/02/2019 Procedure: IVC FILTER PLACEMENT; Surgeon: Pedro Zapien MD; Location: [facility]; Service: Interventional Radiology INTERVENTIONAL RADIOLOGY PROCEDURE Left 09/07/2024 Procedure: LEFT peroneal arteriovenous fistula embolization - Right femoral access; Surgeon: Jared Marcano MD; Location: [facility]; Service: Cardiovascular; Laterality: Left; Please coordinate with Gautam Patel ([facility]) [phone] who will bring coils LUMBAR DISCECTOMY N/A 05/03/2019 Procedure: THORACIC LAMINECTOMY T11-12; Surgeon: Tyree Tan MD; Location: [facility]; Service: Neurosurgery Family History Problem Relation Age of Onset Alcohol abuse Father Social History Socioeconomic History Marital status: Single Tobacco Use Smoking status: Never Passive exposure: Never Smokeless tobacco: Never Vaping Use Vaping status: Never Used Substance and Sexual Activity Alcohol use: No Drug use: Yes Types: Marijuana Sexual activity: Defer Allergies Allergen Reactions Keppra [Levetiracetam] Other (See Comments) Acute psychosis Bupropion Unknown (See Comments) Codeine Nausea Only Hydrocodone Unknown (See Comments) Ketorolac Tromethamine Unknown (See Comments) Medication: Current Facility-Administered Medications: acetaminophen (TYLENOL) tablet 650 mg, 650 mg, Oral, Q4H PRN, Luz Denson MD, 650 mg at 06/02/25 1625 apixaban (ELIQUIS) tablet 5 mg, 5 mg, Oral, BID, Zakiya Mccormick, , 5 mg at 06/03/25 0931 baclofen (LIORESAL) tablet 10 mg, 10 mg, Oral, Q12H, Luz Denson MD, 10 mg at 06/03/25 0931 sennosides-docusate (PERICOLACE) 8.6-50 MG per tablet 2 tablet, 2 tablet, Oral, BID PRN AND polyethylene glycol (MIRALAX) packet 17 g, 17 g, Oral, Daily PRN AND bisacodyl (DULCOLAX) EC tablet5 mg, 5 mg, Oral, Daily PRN AND bisacodyl (DULCOLAX) suppository 10 mg, 10 mg, Rectal, Daily PRN, Luz Holt MD Calcium Replacement - Follow Nurse / BPA Driven Protocol, , Not Applicable, PRN, Luz Denson MD carvedilol (COREG) tablet 3.125 mg, 3.125 mg, Oral, BID With Meals, Zakiya Mccormick DO clopidogrel (PLAVIX) tablet 75 mg, 75 mg, Oral, Daily, Luz Denson MD, 75 mg at 06/03/25 0931 DAPTOmycin (CUBICIN) 550 mg in sodium chloride 0.9 % 50 mL IVPB, 6 mg/kg (Adjusted), Intravenous, Q24H, Alisa Yan, IZABELLA, Stopped at 06/03/25 1015 dextrose (D50W) (25 g/50 mL) IV injection 25 g, 25 g, Intravenous, Q15 Min PRN, Luz Denson MD dextrose (GLUTOSE) oral gel 15 g, 15 g, Oral, Q15 Min PRN, Luz Denson MD finasteride (PROSCAR) tablet 5 mg, 5 mg, Oral, Daily, Zakiya Mccormick DO, 5 mg at folic acid (FOLVITE) tablet 1 mg, 1 mg, Oral, Daily, Luz Denson MD, 1 mg at 06/03/25930 [Held by provider] furosemide (LASIX) tablet 40 mg, 40 mg, Oral, Daily, Luz Holt MD gabapentin (NEURONTIN) capsule 200 mg, 200 mg, Oral, TID, Luz Denson MD, 200 mg at 06/03/25 1637 glucagon (GLUCAGEN) injection 1 mg, 1 mg, Intramuscular, Q15 Min PRN, Luz Holt MD insulin glargine (LANTUS, SEMGLEE) injection 25 Units, 25 Units, Subcutaneous, Nightly, Luz Denson MD, 25 Units at 06/02/252047 Insulin Lispro (humaLOG) injection 2-7 Units, 2-7 Units, Subcutaneous, 4x Daily AC & at Bedtime, Luz Denson MD, 2 Units at 06/03/25 1637 lamoTRIgine (LaMICtal) tablet 100 mg, 100 mg, Oral, Daily, Luz Denson MD, 100mg at 06/03/25 0930 lamoTRIgine (LaMICtal) tablet 250 mg, 250 mg, Oral, Nightly, Luz Denson MD, 250 mg at 06/02/25 204 Magnesium Standard Dose Replacement - Follow Nurse / BPA Driven Protocol, , Not Applicable, PRN, Luz Denson MD melatonin tablet 5 mg, 5 mg, Oral, Nightly, Luz Denson MD, 5 mg at 06/02/252045 morphine injection 1 mg, 1 mg, Intravenous, Q4H PRN, Amanda Bermudez MD, 1 mg at 06/03/25 1035 multivitamin with minerals 1 tablet, 1 tablet, Oral, Daily, Luz Denson MD, 1 tablet at 06/03/25930 nitroglycerin (NITROSTAT) SL tablet 0.4 mg, 0.4 mg, Sublingual, Q5 Min PRN, Luz Denson MD ondansetron ODT (ZOFRAN-ODT) disintegrating tablet 4 mg, 4 mg, Oral, Q6H PRN, 4 mg at 06/02/25 1625OR ondansetron (ZOFRAN) injection 4 mg, 4 mg, Intravenous, Q6H PRN, Luz Denson MD oxyCODONE (ROXICODONE) immediate release tablet 5 mg, 5 mg, Oral, Q4H PRN, Zakiya Mccormick,, 5 mg at 06/03/25 1637 pantoprazole (PROTONIX) EC tablet 40 mg, 40 mg, Oral, BID, Luz Denson MD, 40 mg at 06/03/25 0931 Phosphorus Replacement - Follow Nurse / BPA Driven Protocol, , Not Applicable, PRN, Luz Denson MD piperacillin-tazobactam (ZOSYN) 4.5 g IVPB in 100 mL NS MBP (CD), 4.5 g, Intravenous, Q8H, Luz Denson MD, 4.5 g at 06/03/25 1156 Potassium Replacement - Follow Nurse / BPA Driven Protocol, , Not Applicable, PRN, Luz Denson MD sodium chloride 0.9 % flush 10 mL, 10 mL, Intravenous, Q12H, Luz Denson MD, 10 mL at 06/03/25 0931 sodium chloride 0.9 % flush 10 mL, 10 mL, Intravenous, PRN, Luz Denson MD, 10mL at 06/03/25 1156 sodium chloride 0.9 % infusion 40 mL, 40 mL, Intravenous, PRN, Luz Denson MD Antibiotics: Anti-Infectives (From admission, onward) Ordered Dose/Rate Route Frequency Start Stop 06/03/25 0707 DAPTOmycin (CUBICIN) 550 mg in sodium chloride 0.9 % 50 mL IVPB Ordering Provider: Alisa Yan APRN 6 mg/kg ?? 94.6 kg (Adjusted) 100 mL/hr over 30 Minutes Intravenous Every 24 Hours 06/03/25 0900 06/10/25 0859 06/02/25 1522 Linezolid (ZYVOX) 600 mg 300 mL Status: Discontinued Ordering Provider: Luz Denson MD 600 mg 300 mL/hr over 60 Minutes Intravenous Every 12 Hours 06/03/25 0400 06/03/25 0707 06/02/25 1523 piperacillin-tazobactam (ZOSYN) 4.5 g IVPB in 100 mL NS MBP (CD) Ordering Provider: Luz Denson MD 4.5 g over 4 Hours Intravenous Every 8 Hours 06/02/25199906/09/25 1959 06/02/25 1341 Linezolid (ZYVOX) 600 mg 300 mL Ordering Provider: Mary Miller MD 600 mg 300 mL/hr over 60 Minutes Intravenous Once 06/02/25 1357 06/02/25 1741 06/02/25 1338 vancomycin 2500 mg/500 mL 0.9% NS IVPB ([facility]) Status: Discontinued Ordering Provider: Mary Miller MD 20 mg/kg ?? 120 kg over 150 Minutes Intravenous Once 06/02/25 1354 06/02/25 1341 06/02/25 1338 piperacillin-tazobactam (ZOSYN) 3.375 g IVPB in 100 mL NS MBP (CD) Ordering Provider: Mary Miller MD 3.375 g over 30 Minutes Intravenous Once 06/02/25 1354 06/02/25 1604 Review of Systems: Constitutional-- No Fever, chills or sweats. Appetite good, weakness and fatigue HEENT-- No new vision, hearing or throat complaints. No epistaxis or oral sores. Denies odynophagiaor dysphagia. No headache, photophobia or neck stiffness. CV-- No chest pain, palpitation or syncope Resp-- No SOB/cough/Hemoptysis GI- No nausea, vomiting, or diarrhea. No hematochezia, melena, or hematemesis. Denies jaundice or chronic liver disease. -- chronic ambrose, + hematuria Heme- No active bruising or bleeding; no Hx of DVT or PE. MS-- no swelling or pain in the bones or joints of arms/legs. No new back pain. Neuro-- No acute focal weakness or numbness in the arms or legs. No seizures. Skin--No rash, LLE wounds/redness Physical Exam: Vital Signs Temp (24hrs), Av.4 ??F (36.9 ??C), Min:97.5 ??F (36.4 ??C), Max:99.1 ??F (37.3 ??C) Temp Min: 97.5 ??F (36.4 ??C) Max: 99.1 ??F (37.3 ??C) BP Min: 110/53 Max: 133/69 Pulse Min: 71 Max: 86 Resp Min: 16 Max: 18 SpO2 Min: 92 % Max: 97 % GENERAL: Awake and alert, in no acute distress. HEENT: Normocephalic, atraumatic. PERRL. EOMI. No conjunctival injection. No icterus. Oropharynx clear without evidence of thrush or exudate. No evidence of periodontal disease. NECK: Supple HEART: RRR; No murmur, rubs, gallops. LUNGS: Clear to auscultation bilaterally without wheezing, rales, rhonchi. Normal respiratory effort. Nonlabored ABDOMEN: Soft, nontender, nondistended. Positive bowel sounds. No rebound or guarding. NO mass or HSM. EXT: No cyanosis, clubbing or edema. No cord. RLE BKA : WithFoley catheter. MSK: No joint effusions or erythema SKIN: Warm and dry LLE with erythema from knee to foot. Dorsum of foot wound seropurulent drainage,tender NEURO: Oriented to PPT. Motor 5/5 strength PSYCHIATRIC: Normal insight and judgment. Cooperative with PE Laboratory Data Results from last 7 days Lab Units 06/03/25 0542 06/02/25 1103 WBC 10*3/mm3 9.13 7.85 HEMOGLOBIN g/dL 8.6* 9.7* HEMATOCRIT % 28.2* 31.8* PLATELETS 10*3/mm3 272 262 Results from last 7 days Lab Units 06/03/25 0542 SODIUM mmol/L 136 POTASSIUM mmol/L 4.6 CHLORIDE mmol/L 108* CO2 mmol/L 19.5* BUN mg/dL 23.2* CREATININE mg/dL 0.95 GLUCOSE mg/dL 122* CALCIUM mg/dL 8.2* Results from last 7 days Lab Units 06/03/25 0542 ALK PHOS U/L 95 BILIRUBIN mg/dL 0.2 ALT (SGPT) U/L 12 AST (SGOT) U/L 18 Results from last 7 days Lab Units 06/02/25 1103 LACTATE mmol/L 0.9 Results from last 7 days Lab Units 06/03/25 0542 CK TOTAL U/L 75 Estimated Creatinine Clearance: 95.4 mL/min (by C-G formula based on SCr of 0.95 mg/dL). Microbiology: No results found for: ACANTHNAEG , AFBCX , BPERTUSSISCX , BLOODCX No results found for: BCIDPCR , CXREFLEX , CSFCX , CULTURETIS No results found for: CULTURES , HSVCX , URCX No results found for: EYECULTURE , GCCX , HSVCULTURE , LABHSV No results found for: LEGIONELLA , MRSACX , MUMPSCX , MYCOPLASCX No results found for: NOCARDIACX , STOOLCX No results found for: THROATCX , UNSTIMCULT , URINECX , CULTURE , VZVCULTUR No results found for: VIRALCULTU , WOUNDCX Radiology: Imaging Results (Last 72 Hours) Procedure Component Value Units Date/Time CT Abdomen Pelvis With Contrast [[id number]] Collected: 06/02/25 1217 Updated: 06/02/25 1225 Narrative: CT ABDOMEN PELVIS W CONTRAST Date of Exam: 06/02/2025 11:43 AM EDT Indication: Hematuria, low abdomen pain. Comparison: 06/17/2023 Technique: Axial CT images were obtained of the abdomen and pelvis following the uneventful intravenous administration of iodinated contrast. Reconstructed coronal and sagittal images were also obtained. Automated exposure control and iterative construction methods were used. FINDINGS: Lung bases: No masses. No consolidation. Liver:No masses. No intrahepatic biliary ductal dilatation. Spleen:No masses. No perisplenic hematoma. Pancreas:No pancreatic masses. No evidence of pancreatitis. Gallbladder and common bile duct:No evidence of cholelithiasis. No evidence of cholecystitis. Adrenal glands:No adrenal masses Kidneys and ureters:No kidney stones. No renal masses.No calculi present within the ureters. Normalcaliber ureters. Urinary bladder: Irregular urinary bladder wall thickening concerning for cystitis. Small locules of gas within the urinary bladder may be due to a gas- forming organism or recent instrumentation. Small bowel:Normal caliber small bowel. Large bowel:No diverticulosis or diverticulitis. No large bowel masses are appreciated Appendix: Normal GENITOURINARY: Normal prostate Ascites or pneumoperitoneum:None. Adenopathy:None present Osseous structures: The proximal femurs are intact. Significant degenerative changes of the hips. The pubic bones are intact. The sacrum and sacroiliac joints are normal. Chronic mild loss of height of T11 and T12. Vacuum disc phenomenon at T10-T11, T11-T12, and L1-L2. Multilevel facet disease. No spondylolysis. Multilevel facet disease. Other findings: IVC filter. Atheromatous disease of the abdominal aorta and visualized branches. Impression: Shaggy urinary bladder wall thickening concerning for cystitis. Locules of gas within the urinary bladder concerning for a gas-forming organism. Electronically Signed: Feliciano Garcia MD 06/02/2025 12:22 PM EDT Workstation ID: [id number] XR Chest 1 View [[id number]] Collected: 06/02/25 104 Updated: 06/02/25 104 Narrative: XR CHEST 1 VW Date of Exam: 06/02/2025 10:30 AM EDT Indication: Weakness. Comparison: Chest radiograph 09/10/2024. Findings: Enlarged cardiac silhouette, unchanged. Thoracic aortic calcifications. Chronic/senescent changes of the lungs. No distinct airspace consolidation. No sizable pleural effusion. No pneumothorax. Thoracic spondylosis. Impression: Impression: Stable appearance of the chest without focal airspace consolidation. Electronically Signed: Rony Monsalve MD 06/02/2025 10:45 AM EDT Workstation ID: [id number] PROBLEM LIST: - LLE cellulitis/ chronic foot wound infection prior h/o osteomyelitis - Hematuria/Pyuria/UTI, culture pending. Chronic indwelling ambrose- possible gas forming organisms by CT such as Ecoli, Klebsiella - PAD, s/p revascularization 2023, 2022 - HIstory of pseudoseizures on Lamictal - Diabetes mellitus, type2 Assessment: 70 year old with PMH DM, DVT, PAD/right BKA, pseudoseizures, chronic ambrose, recurrent LLE cellulitis seen today for UTI, left lower extremity wound infection/cellulitis. Developed malaise, hematuria,and worsening redness of left lower extremity several days ago. We were asked to see for antibiotic management. PLAN/RECOMMENDATIONS: Thank you for asking us to see Vitaly Pool, I recommend the following: - DC Linezolid - Daptomycin 6mg/kg Iv daily - Continue Zosyn - follow cultures Dr. Vogel has obtained the history, performed the PE, formulated the above treatment plan This visit included the following complex service elements: Complex medical decision-making associated with antimicrobial prescribing. In-depth chart review with high level synthesis for complex diagnoses. Burke Vogel MD 06/03/2025 17:28 EDT documented in this encounter Nursing Notes * Arnoldo Reeves RN - 06/11/2025 6:06 AM EDT Problem: Adult Inpatient Plan of Care Goal: Plan of Care Review Outcome: Progressing Goal: Patient-Specific Goal (Individualized) Outcome: Progressing Goal: Absence of Hospital-Acquired Illness or Injury Outcome: Progressing Intervention: Identify and Manage Fall Risk Recent Flowsheet Documentation Taken 06/11/2025 0200 by Arnoldo Reeves RN Safety Promotion/Fall Prevention: activity supervised assistive device/personal items within reach clutter free environment maintained fall prevention program maintained lighting adjusted nonskid shoes/slippers when out of bed safety round/check completed room organization consistent Taken 06/11/2025 0000 by Arnoldo Reeves RN Safety Promotion/Fall Prevention: activity supervised assistive device/personal items within reach clutter free environment maintained fall prevention program maintained lighting adjusted nonskid shoes/slippers when out of bed room organization consistent safety round/check completed Taken 06/10/20252199 by Arnoldo Reeves RN Safety Promotion/Fall Prevention: activity supervised assistive device/personal items within reach clutter free environment maintained fall prevention program maintained lighting adjusted nonskid shoes/slippers when out of bed room organization consistent safety round/check completed Taken 06/10/20251999 by Arnoldo Reeves RN Safety Promotion/Fall Prevention: activity supervised clutter free environment maintained assistive device/personal items within reach fall prevention program maintained lighting adjusted nonskid shoes/slippers when out of bed safety round/check completed room organization consistent Intervention: Prevent Skin Injury Recent Flowsheet Documentation Taken 06/11/2025 0200 by Arnoldo Reeves RN Body Position: neutral body alignment Skin Protection: incontinence pads utilized Taken 06/11/2025 0000 by Arnoldo Reeves RN Body Position: position maintained Skin Protection: incontinence pads utilized Taken 06/10/20252199 by Arnoldo Reeves RN Body Position: side-lying left Skin Protection: incontinence pads utilized Taken 06/10/20251999 by Arnoldo Reeves RN Body Position: side-lying Skin Protection: incontinence pads utilized protective footwear used Intervention: Prevent and Manage VTE (Venous Thromboembolism) Risk Recent Flowsheet Documentation Taken 06/10/20251999 by Arnoldo Reeves RN VTE Prevention/Management: bilateral SCDs (sequential compression devices) off Intervention: Prevent Infection Recent Flowsheet Documentation Taken 06/11/2025 0200 by Arnoldo Reeves RN Infection Prevention: hand hygiene promoted rest/sleep promoted single patient room provided personal protective equipment utilized Taken 06/11/2025 0000 by Arnoldo Reeves RN Infection Prevention: hand hygiene promoted rest/sleep promoted single patient room provided personal protective equipment utilized Taken 06/10/2025 2200 by Arnoldo Reeves RN Infection Prevention: hand hygiene promoted rest/sleep promoted single patient room provided Taken 06/10/20251999 by Arnoldo Reeves RN Infection Prevention: hand hygiene promoted rest/sleep promoted single patient room provided Goal: Optimal Comfort and Wellbeing Outcome: Progressing Intervention: Monitor Pain and Promote Comfort Recent Flowsheet Documentation Taken 06/10/2025 2311 by Arnoldo Reeves RN Pain Management Interventions: pain medication given Intervention: Provide Person-Centered Care Recent Flowsheet Documentation Taken 06/11/2025 0200 by Arnoldo Reeves RN Trust Relationship/Rapport: care explained Taken 06/11/2025 0000 by Arnoldo Reeves RN Trust Relationship/Rapport: care explained Taken 06/10/2025 2200 by Arnoldo Reeves RN Trust Relationship/Rapport: care explained Taken 06/10/20251999 by Arnoldo Reeves RN Trust Relationship/Rapport: care explained Goal: Readiness for Transition of Care Outcome: Progressing Goal Outcome Evaluation: * Joann Byrd RN - 06/10/2025 4:08 AM EDT Problem: Adult Inpatient Plan of Care Goal: Plan of Care Review Outcome: Progressing Goal: Patient-Specific Goal (Individualized) Outcome: Progressing Goal: Absence of Hospital-Acquired Illness or Injury Outcome: Progressing Intervention: Identify and Manage Fall Risk Recent Flowsheet Documentation Taken 06/10/2025 0400 by Joann Byrd RN Safety Promotion/Fall Prevention: assistive device/personal items within reach fall prevention program maintained nonskid shoes/slippers when out of bed safety round/check completed Taken 06/10/2025 0200 by Joann Byrd RN Safety Promotion/Fall Prevention: assistive device/personal items within [facility] fall prevention program maintained nonskid shoes/slippers when out of bed safety round/check completed Taken 06/10/2025 0000 by Joann Byrd RN Safety Promotion/Fall Prevention: assistive device/personal items within [facility] fall prevention program maintained nonskid shoes/slippers when out of bed safety round/check completed Taken 06/09/2025 2200 by Joann Byrd RN Safety Promotion/Fall Prevention: assistive device/personal items within [facility] fall prevention program maintained safety round/check completed clutter free environment maintained Taken 06/09/20251999 by Joann Byrd RN Safety Promotion/Fall Prevention: assistive device/personal items within [facility] fall prevention program maintained safety round/check completed clutter free environment maintained Intervention: Prevent Skin Injury Recent Flowsheet Documentation Taken 06/10/2025 0400 by Joann Byrd RN Body Position: turned right Skin Protection: incontinence pads utilized silicone border foam - sacrum/coccyx Taken 06/10/2025 0200 by Joann Byrd RN Body Position: turned left Skin Protection: incontinence pads utilized silicone border foam - sacrum/coccyx Taken 06/10/2025 0000 by Joann Byrd RN Body Position: turned right Skin Protection: incontinence pads utilized silicone border foam - sacrum/coccyx Taken 06/09/2025 2200 by Joann Byrd RN Body Position: turned left Skin Protection: incontinence pads utilized silicone border foam - sacrum/coccyx Taken 06/09/20251999 by Joann Byrd RN Body Position: position changed independently Skin Protection: incontinence pads utilized silicone border foam - sacrum/coccyx Intervention: Prevent Infection Recent Flowsheet Documentation Taken 06/10/2025 0400 by Joann Byrd RN Infection Prevention: environmental surveillance performed rest/sleep promoted Taken 06/10/2025 0200 by Joann Byrd RN Infection Prevention: environmental surveillance performed rest/sleep promoted Taken 06/10/2025 0000 by Joann Byrd RN Infection Prevention: environmental surveillance performed rest/sleep promoted Taken 06/09/2025 2200 by Joann Byrd RN Infection Prevention: environmental surveillance performed rest/sleep promoted Taken 06/09/20251999 by Joann Byrd RN Infection Prevention: environmental surveillance performed rest/sleep promoted Goal: Optimal Comfort and Wellbeing Outcome: Progressing Intervention: Monitor Pain and Promote Comfort Recent Flowsheet Documentation Taken 06/10/2025 0337 by Joann Byrd RNsoil chemist Interventions: pain medication given Taken 06/10/2025 0259 by Joann Byrd RNsoil chemist Interventions: pain medication given Taken 06/09/2025 220 by Joann Byrd RNsoil chemist Interventions: pain medication given Taken 06/09/2025 213 by Joann Byrd RNsoil chemist Interventions: pain medication given Intervention: Provide Person-Centered Care Recent Flowsheet Documentation Taken 06/09/2025 2000 by Joann Byrd RN Trust Relationship/Rapport: care explained choices provided Goal: Readiness for Transition of Care Outcome: Progressing Problem: Skin Injury Risk Increased Goal: Skin Health and Integrity Outcome: Progressing Intervention: Optimize Skin Protection Recent Flowsheet Documentation Taken 06/10/2025 0400 by Joann Byrd RN Activity Management: activity encouraged Pressure Reduction Techniques: frequent weight shift encouraged weight shift assistance provided Head of Bed (HOB) Positioning: [facility] elevated Pressure Reduction Devices: pressure-redistributing mattress utilized Skin Protection: incontinence pads utilized silicone border foam - sacrum/coccyx Taken 06/10/2025 0345 by Joann Byrd RN Activity Management: activity encouraged Taken 06/10/2025 0200 by Joann Byrd RN Activity Management: activity encouraged Pressure Reduction Techniques: frequent weight shift encouraged weight shift assistance provided Head of Bed (HOB) Positioning: [facility] elevated Pressure Reduction Devices: pressure-redistributing mattress utilized Skin Protection: incontinence pads utilized silicone border foam - sacrum/coccyx Taken 06/10/2025 0000 by Joann Byrd RN Activity Management: activity encouraged Pressure Reduction Techniques: frequent weight shift encouraged weight shift assistance provided Head of Bed (HOB) Positioning: HOB elevated Pressure Reduction Devices: pressure-redistributing mattress utilized Skin Protection: incontinence pads utilized silicone border foam - sacrum/coccyx Taken 06/09/2025 220 by Joann Byrd RN Activity Management: activity encouraged Pressure Reduction Techniques: frequent weight shift encouraged weight shift assistance provided Head of Bed (HOB) Positioning: HOB elevated Pressure Reduction Devices: pressure-redistributing mattress utilized Skin Protection: incontinence pads utilized silicone border foam - sacrum/coccyx Taken 06/09/20251999 by Joann Byrd RN Activity Management: activity encouraged Pressure Reduction Techniques: frequent weight shift encouraged weight shift assistance provided Head of Bed (HOB) Positioning: HOB elevated Pressure Reduction Devices: pressure-redistributing mattress utilized Skin Protection: incontinence pads utilized silicone border foam - sacrum/coccyx Problem: Fall Injury Risk Goal: Absence of Fall and Fall-Related Injury Outcome: Progressing Intervention: Promote Injury-Free Environment Recent Flowsheet Documentation Taken 06/10/2025 0400 by Joann Byrd RN Safety Promotion/Fall Prevention: assistive device/personal items within reach fall prevention program maintained nonskid shoes/slippers when out of bed safety round/check completed Taken 06/10/2025 0200 by Joann Byrd RN Safety Promotion/Fall Prevention: assistive device/personal items within reach fall prevention program maintained nonskid shoes/slippers when out of bed safety round/check completed Taken 06/10/2025 0000 by Joann Byrd RN Safety Promotion/Fall Prevention: assistive device/personal items within reach fall prevention program maintained nonskid shoes/slippers when out of bed safety round/check completed Taken 06/09/2025 2200 by Joann Byrd RN Safety Promotion/Fall Prevention: assistive device/personal items within reach fall prevention program maintained safety round/check completed clutter free environment maintained Taken 06/09/20251999 by Joann Byrd RN Safety Promotion/Fall Prevention: assistive device/personal items within reach fall prevention program maintained safety round/check completed clutter free environment maintained * Staci Mckeon RN - 06/09/2025 5:34 AM EDT Problem: Adult Inpatient Plan of Care Goal: Plan of Care Review Outcome: Progressing Goal: Patient-Specific Goal (Individualized) Outcome: Progressing Goal: Absence of Hospital-Acquired Illness or Injury Outcome: Progressing Intervention: Identify and Manage Fall Risk Recent Flowsheet Documentation Taken 06/09/2025 0400 by Staci Mckeon RN Safety Promotion/Fall Prevention: activity supervised clutter free environment maintained fall prevention program maintained assistive device/personal items within reach lighting adjusted nonskid shoes/slippers when out of bed room organization consistent safety round/check completed Taken 06/09/2025 0200 by Staci Mckeon RN Safety Promotion/Fall Prevention: activity supervised clutter free environment maintained fall prevention program maintained assistive device/personal items within reach lighting adjusted nonskid shoes/slippers when out of bed room organization consistent safety round/check completed Taken 06/09/2025 0000 by Staci Mckeon RN Safety Promotion/Fall Prevention: activity supervised clutter free environment maintained fall prevention program maintained assistive device/personal items within reach lighting adjusted nonskid shoes/slippers when out of bed room organization consistent safety round/check completed Taken 06/08/20252199 by Staci Mckeon RN Safety Promotion/Fall Prevention: activity supervised clutter free environment maintained fall prevention program maintained assistive device/personal items within reach lighting adjusted nonskid shoes/slippers when out of bed room organization consistent safety round/check completed Taken 06/08/20251999 by Staci Mckeon RN Safety Promotion/Fall Prevention: activity supervised clutter free environment maintained fall prevention program maintained assistive device/personal items within reach lighting adjusted nonskid shoes/slippers when out of bed room organization consistent safety round/check completed Intervention: Prevent Skin Injury Recent Flowsheet Documentation Taken 06/09/2025 0400 by Staci Mckeon RN Body Position: patient/family refused Skin Protection: incontinence pads utilized Taken 06/09/2025 0200 by Staci Mckeon RN Body Position: position maintained patient/family refused Skin Protection: incontinence pads utilized Taken 06/09/2025 0000 by Staci Mckeon RN Body Position: turned left Skin Protection: incontinence pads utilized Taken 06/08/20252199 by Staci Mckeon RN Body Position: turned right Skin Protection: incontinence pads utilized Taken 06/08/20251999 by Staci Mckeon RN Body Position: turned left legs elevated Skin Protection: incontinence pads utilized skin sealant/moisture barrier applied Intervention: Prevent Infection Recent Flowsheet Documentation Taken 06/09/2025 0400 by Staci Mckeon RN Infection Prevention: cohorting utilized environmental surveillance performed equipment surfaces disinfected hand hygiene promoted personal protective equipment utilized rest/sleep promoted single patient room provided visitors restricted/screened Taken 06/09/2025 0200 by Staci Mcekon RN Infection Prevention: cohorting utilized environmental surveillance performed equipment surfaces disinfected hand hygiene promoted personal protective equipment utilized rest/sleep promoted single patient room provided visitors restricted/screened Taken 06/09/2025 0000 by Staci Mckeon RN Infection Prevention: cohorting utilized environmental surveillance performed equipment surfaces disinfected hand hygiene promoted personal protective equipment utilized rest/sleep promoted single patient room provided visitors restricted/screened Taken 06/08/2025 2200 by Staci Mckeon RN Infection Prevention: cohorting utilized environmental surveillance performed equipment surfaces disinfected hand hygiene promoted personal protective equipment utilized rest/sleep promoted single patient room provided visitors restricted/screened Taken 06/08/20251999 by Staci Mckeon RN Infection Prevention: cohorting utilized environmental surveillance performed equipment surfaces disinfected hand hygiene promoted personal protective equipment utilized rest/sleep promoted single patient room provided visitors restricted/screened Goal: Optimal Comfort and Wellbeing Outcome: Progressing Intervention: Provide Person-Centered Care Recent Flowsheet Documentation Taken 06/08/20251999 by Staci Mckeon RN Trust Relationship/Rapport: care explained Goal: Readiness for Transition of Care Outcome: Progressing Problem: Skin Injury Risk Increased Goal: Skin Health and Integrity Outcome: Progressing Intervention: Optimize Skin Protection Recent Flowsheet Documentation Taken 06/09/2025 0400 by Staci Mckeon RN Activity Management: activity minimized Pressure Reduction Techniques: weight shift assistance provided Head of Bed (HOB) Positioning: HOB elevated Pressure Reduction Devices: specialty bed utilized Skin Protection: incontinence pads utilized Taken 06/09/2025 0200 by Staci Mckeon RN Activity Management: activity minimized Pressure Reduction Techniques: weight shift assistance provided Head of Bed (HOB) Positioning: HOB elevated Pressure Reduction Devices: specialty bed utilized Skin Protection: incontinence pads utilized Taken 06/09/2025 0000 by Staci Mckeon RN Activity Management: activity minimized Pressure Reduction Techniques: weight shift assistance provided positioned off wounds pressure points protected Head of Bed (HOB) Positioning: [facility] elevated Pressure Reduction Devices: specialty bed utilized Skin Protection: incontinence pads utilized Taken 06/08/2025 2200 by Staci Mckeon RN Activity Management: activity minimized Pressure Reduction Techniques: weight shift assistance provided positioned off wounds pressure points protected heels elevated off bed Head of Bed (HOB) Positioning: HOB elevated Pressure Reduction Devices: specialty bed utilized positioning supports utilized Skin Protection: incontinence pads utilized Taken 06/08/20251999 by Staci Mckeon RN Activity Management: activity minimized Pressure Reduction Techniques: weight shift assistance provided heels elevated off bed positioned off wounds pressure points protected Head of Bed (HOB) Positioning: HOB elevated Pressure Reduction Devices: specialty bed utilized positioning supports utilized Skin Protection: incontinence pads utilized skin sealant/moisture barrier applied Problem: Fall Injury Risk Goal: Absence of Fall and Fall-Related Injury Outcome: Progressing Intervention: Identify and Manage Contributors Recent Flowsheet Documentation Taken 06/09/2025 0400 by Staci Mckeon RN Medication Review/Management: medications reviewed Self-Care Promotion: independence encouraged Taken 06/09/2025 0200 by Staci Mckeon RN Medication Review/Management: medications reviewed Self-Care Promotion: independence encouraged Taken 06/09/2025 0000 by Staci Mckeon RN Medication Review/Management: medications reviewed Self-Care Promotion: independence encouraged Taken 06/08/2025 2200 by Staci Mckeon RN Medication Review/Management: medications reviewed Self-Care Promotion: independence encouraged Taken 06/08/20251999 by Staci Mckeon RN Medication Review/Management: medications reviewed Self-Care Promotion: independence encouraged BADL personal objects within reach Intervention: Promote Injury-Free Environment Recent Flowsheet Documentation Taken 06/09/2025 0400 by Staci Mckeon RN Safety Promotion/Fall Prevention: activity supervised clutter free environment maintained fall prevention program maintained assistive device/personal items within reach lighting adjusted nonskid shoes/slippers when out of bed room organization consistent safety round/check completed Taken 06/09/2025 0200 by Staci Mckeon RN Safety Promotion/Fall Prevention: activity supervised clutter free environment maintained fall prevention program maintained assistive device/personal items within reach lighting adjusted nonskid shoes/slippers when out of bed room organization consistent safety round/check completed Taken 06/09/2025 0000 by Staci Mckeon RN Safety Promotion/Fall Prevention: activity supervised clutter free environment maintained fall prevention program maintained assistive device/personal items within reach lighting adjusted nonskid shoes/slippers when out of bed room organization consistent safety round/check completed Taken 06/08/20252199 by Staci Mckeon RN Safety Promotion/Fall Prevention: activity supervised clutter free environment maintained fall prevention program maintained assistive device/personal items within reach lighting adjusted nonskid shoes/slippers when out of bed room organization consistent safety round/check completed Taken 06/08/20251999 by Staci Mckeon RN Safety Promotion/Fall Prevention: activity supervised clutter free environment maintained fall prevention program maintained assistive device/personal items within reach lighting adjusted nonskid shoes/slippers when out of bed room organization consistent safety round/check completed Goal Outcome Evaluation: * Zakiya Cerws PT - 06/07/2025 3:39 PM EDT Goal Outcome Evaluation: Plan of Care Reviewed With: patient Progress: improving Outcome Evaluation: Patient participated in PT session x 34 minutes total during which patient worked on bed mobility and transfers. Patient requiring similiar assist for rolling this date, but demonstrated improved tolerance to upright position with patient able move to sitting in chair via overhead lift. Patient's vital signs stable throughout session. Patient deferred edge of bed activity and exercises reporting he only wanted to get to the chair. Patient would continue to benefit from skilled PT services at this time. PT continues to recommend patient discharge to a [facility] facility when medically appropriate for discharge. Anticipated Discharge Disposition (PT): [facility] facility * Kelly Guevara RN - 06/07/2025 5:40 AM EDT Problem: Adult Inpatient Plan of Care Goal: Plan of Care Review Outcome: Progressing Goal: Patient-Specific Goal (Individualized) Outcome: Progressing Goal: Absence of Hospital-Acquired Illness or Injury Outcome: Progressing Intervention: Identify and Manage Fall Risk Recent Flowsheet Documentation Taken 06/07/2025 0400 by Kelly Guevara RN Safety Promotion/Fall Prevention: activity supervised assistive device/personal items within reach clutter free environment maintained nonskid shoes/slippers when out of bed room organization consistent safety round/check completed Taken 06/07/2025 0200 by Kelly Guevara RN Safety Promotion/Fall Prevention: activity supervised assistive device/personal items within reach clutter free environment maintained nonskid shoes/slippers when out of bed safety round/check completed room organization consistent Taken 06/07/2025 by Kelly Guevara RN Safety Promotion/Fall Prevention: activity supervised assistive device/personal items within reach clutter free environment maintained nonskid shoes/slippers when out of bed safety round/check completed room organization consistent Taken 06/06/20252228 by Kelly Guevara RN Safety Promotion/Fall Prevention: activity supervised assistive device/personal items within reach clutter free environment maintained nonskid shoes/slippers when out of bed room organization consistent safety round/check completed Taken 06/06/20252199 by Kelly Guevara RN Safety Promotion/Fall Prevention: activity supervised assistive device/personal items within reach clutter free environment maintained nonskid shoes/slippers when out of bed safety round/check completed room organization consistent Taken 06/06/20251999 by Kelly Guevara RN Safety Promotion/Fall Prevention: activity supervised assistive device/personal items within reach clutter free environment maintained nonskid shoes/slippers when out of bed safety round/check completed room organization consistent Intervention: Prevent Skin Injury Recent Flowsheet Documentation Taken 06/07/2025 0400 by Kelly Guevara RN Body Position: position maintained patient/family refused Skin Protection: incontinence pads utilized protective footwear used silicone border foam - sacrum/coccyx skin sealant/moisture barrier applied Taken 06/07/2025 0200 by Kelly Guevara RN Body Position: position maintained patient/family refused Skin Protection: incontinence pads utilized protective footwear used silicone border foam - sacrum/coccyx skin sealant/moisture barrier applied Taken 06/07/2025 0000 by Kelly Guevara RN Body Position: position maintained Skin Protection: incontinence pads utilized protective footwear used silicone border foam - sacrum/coccyx skin sealant/moisture barrier applied Taken 06/06/20252228 by Kelly Guevara RN Body Position: turned left Skin Protection: incontinence pads utilized protective footwear used silicone border foam - sacrum/coccyx skin sealant/moisture barrier applied Taken 06/06/20252199 by Kelly Guevara RN Body Position: position maintained Skin Protection: incontinence pads utilized protective footwear used silicone border foam - sacrum/coccyx skin sealant/moisture barrier applied Taken 06/06/20251999 by Kelly Guevara RN Body Position: position maintained Skin Protection: incontinence pads utilized protective footwear used silicone border foam - sacrum/coccyx skin sealant/moisture barrier applied Goal: Optimal Comfort and Wellbeing Outcome: Progressing Intervention: Provide Person-Centered Care Recent Flowsheet Documentation Taken 06/06/20252228 by Kelly Guevara RN Trust Relationship/Rapport: care explained choices provided questions answered questions encouraged thoughts/feelings acknowledged Goal: Readiness for Transition of Care Outcome: Progressing Problem: Skin Injury Risk Increased Goal: Skin Health and Integrity Outcome: Progressing Intervention: Optimize Skin Protection Recent Flowsheet Documentation Taken 06/07/2025 0400 by Kelly Guevara RN Activity Management: activity minimized Pressure Reduction Techniques: frequent weight shift encouraged Head of Bed (HOB) Positioning: [facility] elevated Pressure Reduction Devices: pressure-redistributing mattress utilized Skin Protection: incontinence pads utilized protective footwear used silicone border foam - sacrum/coccyx skin sealant/moisture barrier applied Taken 06/07/2025 0200 by Kelly Guevara RN Activity Management: activity minimized Pressure Reduction Techniques: frequent weight shift encouraged Head of Bed (HOB) Positioning: HOB elevated Pressure Reduction Devices: pressure-redistributing mattress utilized Skin Protection: incontinence pads utilized protective footwear used silicone border foam - sacrum/coccyx skin sealant/moisture barrier applied Taken 06/07/2025 0000 by Kelly Guevara RN Activity Management: activity minimized Pressure Reduction Techniques: frequent weight shift encouraged Head of Bed (HOB) Positioning: HOB elevated Pressure Reduction Devices: pressure-redistributing mattress utilized Skin Protection: incontinence pads utilized protective footwear used silicone border foam - sacrum/coccyx skin sealant/moisture barrier applied Taken 06/06/20252228 by Kelly Guevara RN Activity Management: activity minimized Pressure Reduction Techniques: frequent weight shift encouraged Head of Bed (HOB) Positioning: HOB elevated Pressure Reduction Devices: pressure-redistributing mattress utilized Skin Protection: incontinence pads utilized protective footwear used silicone border foam - sacrum/coccyx skin sealant/moisture barrier applied Taken 06/06/20252199 by Kelly Guevara RN Activity Management: activity minimized Pressure Reduction Techniques: frequent weight shift encouraged Head of Bed (HOB) Positioning: HOB elevated Pressure Reduction Devices: pressure-redistributing mattress utilized Skin Protection: incontinence pads utilized protective footwear used silicone border foam - sacrum/coccyx skin sealant/moisture barrier applied Taken 06/06/20251999 by Kelly Guevara RN Activity Management: activity minimized Pressure Reduction Techniques: frequent weight shift encouraged Head of Bed (HOB) Positioning: [facility] elevated Pressure Reduction Devices: pressure-redistributing mattress utilized Skin Protection: incontinence pads utilized protective footwear used silicone border foam - sacrum/coccyx skin sealant/moisture barrier applied Problem: Fall Injury Risk Goal: Absence of Fall and Fall-Related Injury Outcome: Progressing Intervention: Identify and Manage Contributors Recent Flowsheet Documentation Taken 06/07/2025399 by Kelly Guevara RN Medication Review/Management: medications reviewed Taken 06/07/2025199 by Kelly Guevara RN Medication Review/Management: medications reviewed Taken 06/07/2025 by Kelly Guevara RN Medication Review/Management: medications reviewed Taken 06/06/20252228 by Kelly Guevara RN Medication Review/Management: medications reviewed Taken 06/06/20252199 by Kelly Guevara RN Medication Review/Management: medications reviewed Taken 06/06/20251999 by Kelly Guevara RN Medication Review/Management: medications reviewed Intervention: Promote Injury-Free Environment Recent Flowsheet Documentation Taken 06/07/2025399 by Kelly Guveara RN Safety Promotion/Fall Prevention: activity supervised assistive device/personal items within reach clutter free environment maintained nonskid shoes/slippers when out of bed room organization consistent safety round/check completed Taken 06/07/2025 020 by Kelly Guevara RN Safety Promotion/Fall Prevention: activity supervised assistive device/personal items within reach clutter free environment maintained nonskid shoes/slippers when out of bed safety round/check completed room organization consistent Taken 06/07/2025 by Kelly Guevara RN Safety Promotion/Fall Prevention: activity supervised assistive device/personal items within reach clutter free environment maintained nonskid shoes/slippers when out of bed safety round/check completed room organization consistent Taken 06/06/20252228 by Kelly Guevara RN Safety Promotion/Fall Prevention: activity supervised assistive device/personal items within reach clutter free environment maintained nonskid shoes/slippers when out of bed room organization consistent safety round/check completed Taken 06/06/20252199 by Kelly Guevara RN Safety Promotion/Fall Prevention: activity supervised assistive device/personal items within reach clutter free environment maintained nonskid shoes/slippers when out of bed safety round/check completed room organization consistent Taken 06/06/20251999 by Kelly Guevara RN Safety Promotion/Fall Prevention: activity supervised assistive device/personal items within reach clutter free environment maintained nonskid shoes/slippers when out of bed safety round/check completed room organization consistent Goal Outcome Evaluation: * Joann Byrd RN - 06/06/2025 5:28 AM EDT Problem: Adult Inpatient Plan of Care Goal: Plan of Care Review Outcome: Progressing Goal: Patient-Specific Goal (Individualized) Outcome: Progressing Goal: Absence of Hospital-Acquired Illness or Injury Outcome: Progressing Intervention: Identify and Manage Fall Risk Recent Flowsheet Documentation Taken 06/06/2025 0400 by Joann Byrd RN Safety Promotion/Fall Prevention: assistive device/personal items within reach fall prevention program maintained nonskid shoes/slippers when out of bed safety round/check completed Taken 06/06/2025 0200 by Joann Byrd RN Safety Promotion/Fall Prevention: assistive device/personal items within reach fall prevention program maintained nonskid shoes/slippers when out of bed safety round/check completed Taken 06/06/2025 0000 by Joann Byrd RN Safety Promotion/Fall Prevention: assistive device/personal items within reach fall prevention program maintained nonskid shoes/slippers when out of bed safety round/check completed Taken 06/05/20252199 by Joann Byrd RN Safety Promotion/Fall Prevention: assistive device/personal items within reach fall prevention program maintained nonskid shoes/slippers when out of bed safety round/check completed Taken 06/05/20251999 by Joann Byrd RN Safety Promotion/Fall Prevention: assistive device/personal items within reach fall prevention program maintained nonskid shoes/slippers when out of bed safety round/check completed Intervention: Prevent Skin Injury Recent Flowsheet Documentation Taken 06/06/2025 0400 by Joann Byrd RN Body Position: turned right Skin Protection: incontinence pads utilized silicone border foam - sacrum/coccyx Taken 06/06/2025 0200 by Joann Byrd RN Body Position: left position maintained legs elevated weight shifting Skin Protection: incontinence pads utilized silicone border foam - sacrum/coccyx Taken 06/06/2025 0000 by Joann Byrd RN Body Position: turned left Skin Protection: incontinence pads utilized silicone border foam - sacrum/coccyx Taken 06/05/20252199 by Joann Byrd RN Body Position: weight shifting sitting up in bed Skin Protection: incontinence pads utilized silicone border foam - sacrum/coccyx Taken 06/05/20251999 by Joann Byrd RN Body Position: (pt refused being turned on side) position changed independently weight shifting sitting up in bed Skin Protection: incontinence pads utilized silicone border foam - sacrum/coccyx Intervention: Prevent Infection Recent Flowsheet Documentation Taken 06/06/2025 0400 by Joann Byrd RN Infection Prevention: environmental surveillance performed rest/sleep promoted Taken 06/06/2025 0200 by Joann Byrd RN Infection Prevention: environmental surveillance performed rest/sleep promoted Taken 06/06/2025 0000 by Joann Byrd RN Infection Prevention: environmental surveillance performed rest/sleep promoted Taken 06/05/2025 2200 by Joann Byrd RN Infection Prevention: environmental surveillance performed rest/sleep promoted Taken 06/05/20251999 by Joann Byrd RN Infection Prevention: environmental surveillance performed rest/sleep promoted Goal: Optimal Comfort and Wellbeing Outcome: Progressing Intervention: Monitor Pain and Promote Comfort Recent Flowsheet Documentation Taken 06/06/2025 0000 by Joann Byrd RNsoil chemist Interventions: pain medication given Taken 06/05/2025 2357 by Joann Byrd RNsoil chemist Interventions: pain medication given Taken 06/05/2025 2327 by Joann Byrd RNsoil chemist Interventions: pain medication given Taken 06/05/20252199 by Joann Byrd RNsoil chemist Interventions: pain medication given Taken 06/05/20252131 by Joann Byrd RNsoil chemist Interventions: pain medication given Taken 06/05/20252101 by Joann Byrd RNsoil chemist Interventions: pain medication given Taken 06/05/20251999 by Joann Byrd RNsoil chemist Interventions: pain medication given Intervention: Provide Person-Centered Care Recent Flowsheet Documentation Taken 06/05/20251999 by Joann Byrd RN Trust Relationship/Rapport: care explained choices provided Goal: Readiness for Transition of Care Outcome: Progressing Problem: Skin Injury Risk Increased Goal: Skin Health and Integrity Outcome: Progressing Intervention: Optimize Skin Protection Recent Flowsheet Documentation Taken 06/06/2025 0400 by Joann Byrd RN Activity Management: activity encouraged Pressure Reduction Techniques: frequent weight shift encouraged weight shift assistance provided Head of Bed (HOB) Positioning: [facility] elevated Pressure Reduction Devices: pressure-redistributing mattress utilized Skin Protection: incontinence pads utilized silicone border foam - sacrum/coccyx Taken 06/06/2025 0200 by Joann Byrd RN Activity Management: activity encouraged Pressure Reduction Techniques: frequent weight shift encouraged Head of Bed (HOB) Positioning: [facility] elevated Pressure Reduction Devices: pressure-redistributing mattress utilized Skin Protection: incontinence pads utilized silicone border foam - sacrum/coccyx Taken 06/06/2025 0000 by Joann Byrd RN Activity Management: activity encouraged Pressure Reduction Techniques: frequent weight shift encouraged weight shift assistance provided Head of Bed (HOB) Positioning: [facility] elevated Pressure Reduction Devices: pressure-redistributing mattress utilized Skin Protection: incontinence pads utilized silicone border foam - sacrum/coccyx Taken 06/05/2025 2200 by Joann Byrd RN Activity Management: activity encouraged Pressure Reduction Techniques: frequent weight shift encouraged weight shift assistance provided Head of Bed (HOB) Positioning: HOB elevated Pressure Reduction Devices: pressure-redistributing mattress utilized Skin Protection: incontinence pads utilized silicone border foam - sacrum/coccyx Taken 06/05/20251999 by Joann Byrd RN Activity Management: activity encouraged Pressure Reduction Techniques: frequent weight shift encouraged weight shift assistance provided Head of Bed (HOB) Positioning: HOB elevated Pressure Reduction Devices: pressure-redistributing mattress utilized Skin Protection: incontinence pads utilized silicone border foam - sacrum/coccyx Problem: Fall Injury Risk Goal: Absence of Fall and Fall-Related Injury Outcome: Progressing Intervention: Promote Injury-Free Environment Recent Flowsheet Documentation Taken 06/06/2025 0400 by Joann Byrd RN Safety Promotion/Fall Prevention: assistive device/personal items within reach fall prevention program maintained nonskid shoes/slippers when out of bed safety round/check completed Taken 06/06/2025 0200 by Joann Byrd RN Safety Promotion/Fall Prevention: assistive device/personal items within reach fall prevention program maintained nonskid shoes/slippers when out of bed safety round/check completed Taken 06/06/2025 0000 by Joann Byrd RN Safety Promotion/Fall Prevention: assistive device/personal items within reach fall prevention program maintained nonskid shoes/slippers when out of bed safety round/check completed Taken 06/05/2025 2200 by Joann Byrd RN Safety Promotion/Fall Prevention: assistive device/personal items within reach fall prevention program maintained nonskid shoes/slippers when out of bed safety round/check completed Taken 06/05/20251999 by Joann Byrd RN Safety Promotion/Fall Prevention: assistive device/personal items within reach fall prevention program maintained nonskid shoes/slippers when out of bed safety round/check completed * Joann Byrd RN - 06/05/2025 6:00 AM EDT Problem: Adult Inpatient Plan of Care Goal: Plan of Care Review Outcome: Progressing Goal: Patient-Specific Goal (Individualized) Outcome: Progressing Goal: Absence of Hospital-Acquired Illness or Injury Outcome: Progressing Intervention: Identify and Manage Fall Risk Recent Flowsheet Documentation Taken 06/05/2025 0400 by Joann Byrd RN Safety Promotion/Fall Prevention: assistive device/personal items within reach fall prevention program maintained nonskid shoes/slippers when out of bed safety round/check completed Taken 06/05/2025 0200 by Joann Byrd RN Safety Promotion/Fall Prevention: assistive device/personal items within reach fall prevention program maintained nonskid shoes/slippers when out of bed safety round/check completed Taken 06/05/2025 0000 by Joann Byrd RN Safety Promotion/Fall Prevention: assistive device/personal items within reach fall prevention program maintained safety round/check completed clutter free environment maintained Taken 06/04/2025 2200 by Joann Byrd RN Safety Promotion/Fall Prevention: assistive device/personal items within reach fall prevention program maintained safety round/check completed Taken 06/04/20251999 by Joann Byrd RN Safety Promotion/Fall Prevention: assistive device/personal items within reach fall prevention program maintained nonskid shoes/slippers when out of bed safety round/check completed Intervention: Prevent Skin Injury Recent Flowsheet Documentation Taken 06/05/2025 0400 by Joann Byrd RN Body Position: turned right Skin Protection: incontinence pads utilized silicone border foam - sacrum/coccyx Taken 06/05/2025 0200 by Joann Byrd RN Body Position: turned left Skin Protection: incontinence pads utilized silicone border foam - sacrum/coccyx Taken 06/05/2025 0000 by Joann Byrd RN Body Position: turned right Skin Protection: incontinence pads utilized silicone border foam - sacrum/coccyx Taken 06/04/2025 2200 by Joann Byrd RN Body Position: turned left Skin Protection: incontinence pads utilized silicone border foam - sacrum/coccyx Taken 06/04/20251999 by Joann Byrd RN Body Position: weight shifting position changed independently Skin Protection: incontinence pads utilized silicone border foam - sacrum/coccyx Intervention: Prevent Infection Recent Flowsheet Documentation Taken 06/05/2025 0400 by Joann Byrd RN Infection Prevention: environmental surveillance performed rest/sleep promoted Taken 06/05/2025 0200 by Joann Byrd RN Infection Prevention: environmental surveillance performed rest/sleep promoted Taken 06/05/2025 0000 by Joann Byrd RN Infection Prevention: environmental surveillance performed rest/sleep promoted Taken 06/04/2025 2200 by Joann Byrd RN Infection Prevention: environmental surveillance performed rest/sleep promoted Taken 06/04/20251999 by Joann Byrd RN Infection Prevention: environmental surveillance performed rest/sleep promoted single patient room provided Goal: Optimal Comfort and Wellbeing Outcome: Progressing Intervention: Monitor Pain and Promote Comfort Recent Flowsheet Documentation Taken 06/05/2025 0412 by Joann Byrd RNsoil chemist Interventions: pain medication given Taken 06/05/2025 0400 by Joann Byrd RNsoil chemist Interventions: pain medication given Taken 06/04/2025 2304 by Joann Byrd RNsoil chemist Interventions: pain medication given Taken 06/04/2025 220 by Joann Byrd RNsoil chemist Interventions: pain medication given Taken 06/04/2025 2110 by Joann Byrd RNsoil chemist Interventions: pain medication given Taken 06/04/20251999 by Joann Byrd RNsoil chemist Interventions: pain medication given Intervention: Provide Person-Centered Care Recent Flowsheet Documentation Taken 06/05/2025 0000 by Joann Byrd RN Trust Relationship/Rapport: care explained choices provided Taken 06/04/20251999 by Joann Byrd RN Trust Relationship/Rapport: care explained choices provided Goal: Readiness for Transition of Care Outcome: Progressing Problem: Skin Injury Risk Increased Goal: Skin Health and Integrity Outcome: Progressing Intervention: Optimize Skin Protection Recent Flowsheet Documentation Taken 06/05/2025 0400 by Joann Byrd RN Activity Management: activity encouraged Pressure Reduction Techniques: frequent weight shift encouraged weight shift assistance provided Head of Bed (HOB) Positioning: HOB elevated Pressure Reduction Devices: pressure-redistributing mattress utilized Skin Protection: incontinence pads utilized silicone border foam - sacrum/coccyx Taken 06/05/2025 0200 by Joann Byrd RN Activity Management: activity minimized Pressure Reduction Techniques: frequent weight shift encouraged weight shift assistance provided Head of Bed (HOB) Positioning: HOB elevated Pressure Reduction Devices: pressure-redistributing mattress utilized Skin Protection: incontinence pads utilized silicone border foam - sacrum/coccyx Taken 06/05/2025 0000 by Joann Byrd RN Activity Management: activity encouraged Pressure Reduction Techniques: frequent weight shift encouraged weight shift assistance provided Head of Bed (HOB) Positioning: [facility] elevated Pressure Reduction Devices: specialty bed utilized Skin Protection: incontinence pads utilized silicone border foam - sacrum/coccyx Taken 06/04/2025 2200 by Joann Byrd RN Activity Management: activity encouraged Pressure Reduction Techniques: frequent weight shift encouraged weight shift assistance provided Head of Bed (HOB) Positioning: [facility] elevated Pressure Reduction Devices: specialty bed utilized Skin Protection: incontinence pads utilized silicone border foam - sacrum/coccyx Taken 06/04/20251999 by Joann Byrd RN Activity Management: activity encouraged Pressure Reduction Techniques: frequent weight shift encouraged weight shift assistance provided Head of Bed (HOB) Positioning: [facility] elevated Pressure Reduction Devices: pressure-redistributing mattress utilized Skin Protection: incontinence pads utilized silicone border foam - sacrum/coccyx Problem: Fall Injury Risk Goal: Absence of Fall and Fall-Related Injury Outcome: Progressing Intervention: Identify and Manage Contributors Recent Flowsheet Documentation Taken 06/04/20251999 by Joann Byrd RN Medication Review/Management: medications reviewed Intervention: Promote Injury-Free Environment Recent Flowsheet Documentation Taken 06/05/2025 0400 by Joann Byrd RN Safety Promotion/Fall Prevention: assistive device/personal items within reach fall prevention program maintained nonskid shoes/slippers when out of bed safety round/check completed Taken 06/05/2025 0200 by Joann Byrd RN Safety Promotion/Fall Prevention: assistive device/personal items within reach fall prevention program maintained nonskid shoes/slippers when out of bed safety round/check completed Taken 06/05/2025 0000 by Joann Byrd RN Safety Promotion/Fall Prevention: assistive device/personal items within reach fall prevention program maintained safety round/check completed clutter free environment maintained Taken 06/04/2025 220 by Joann Byrd RN Safety Promotion/Fall Prevention: assistive device/personal items within reach fall prevention program maintained safety round/check completed Taken 06/04/20251999 by Joann Byrd RN Safety Promotion/Fall Prevention: assistive device/personal items within reach fall prevention program maintained nonskid shoes/slippers when out of bed safety round/check completed * Ute Person RN - 06/04/2025 4:55 PM EDT Problem: Adult Inpatient Plan of Care Goal: Plan of Care Review 06/04/20251654 by Ute Person RN Outcome: Progressing Flowsheets (Taken 06/04/20251654) Plan of Care Reviewed With: patient 06/04/2025 165 by Ute Person RN Outcome: Progressing Goal: Patient-Specific Goal (Individualized) 06/04/20251654 by Ute Person RN Outcome: Progressing 06/04/2025 165 by Ute Person RN Outcome: Progressing Goal: Absence of Hospital-Acquired Illness or Injury 06/04/20251654 by Ute Person RN Outcome: Progressing 06/04/2025 165 by Ute Person RN Outcome: Progressing Intervention: Identify and Manage Fall Risk Recent Flowsheet Documentation Taken 06/04/2025 1600 by Ute Person RN Safety Promotion/Fall Prevention: assistive device/personal items within reach clutter free environment maintained lighting adjusted nonskid shoes/slippers when out of bed room organization consistent safety round/check completed Taken 06/04/2025 1400 by Ute Person RN Safety Promotion/Fall Prevention: activity supervised assistive device/personal items within reach clutter free environment maintained lighting adjusted nonskid shoes/slippers when out of bed room organization consistent safety round/check completed Taken 06/04/2025 1200 by Ute Person RN Safety Promotion/Fall Prevention: clutter free environment maintained Taken 06/04/2025 1000 by Ute Person RN Safety Promotion/Fall Prevention: activity supervised assistive device/personal items within reach clutter free environment maintained lighting adjusted nonskid shoes/slippers when out of bed room organization consistent safety round/check completed Taken 06/04/2025 0810 by Ute Person RN Safety Promotion/Fall Prevention: assistive device/personal items within reach clutter free environment maintained lighting adjusted room organization consistent safety round/check completed fall prevention program maintained Intervention: Prevent Skin Injury Recent Flowsheet Documentation Taken 06/04/2025 1600 by Ute Person RN Body Position: position changed independently Skin Protection: incontinence pads utilized protective footwear used Taken 06/04/2025 1400 by Ute Person RN Skin Protection: protective footwear used incontinence pads utilized Taken 06/04/2025 1200 by Ute Person RN Body Position: right Skin Protection: protective footwear used incontinence pads utilized Taken 06/04/2025 1000 by Ute Person RN Skin Protection: protective footwear used incontinence pads utilized Taken 06/04/2025 0810 by Ute Person RN Body Position: position maintained foot of bed elevated lower extremity elevated side-lying sitting up in bed Skin Protection: incontinence pads utilized protective footwear used Intervention: Prevent Infection Recent Flowsheet Documentation Taken 06/04/2025 1600 by Ute Person RN Infection Prevention: environmental surveillance performed equipment surfaces disinfected hand hygiene promoted Taken 06/04/2025 1400 by Ute Person RN Infection Prevention: environmental surveillance performed equipment surfaces disinfected hand hygiene promoted Taken 06/04/2025 1200 by tUe Person RN Infection Prevention: environmental surveillance performed equipment surfaces disinfected hand hygiene promoted Taken 06/04/2025 1000 by Ute Person RN Infection Prevention: environmental surveillance performed equipment surfaces disinfected hand hygiene promoted Taken 06/04/2025 0810 by Ute Person RN Infection Prevention: environmental surveillance performed equipment surfaces disinfected hand hygiene promoted single patient room provided Goal: Optimal Comfort and Wellbeing 06/04/2025 1655 by Ute Person RN Outcome: Progressing 06/04/2025 1654 by Ute Person RN Outcome: Progressing Intervention: Monitor Pain and Promote Comfort Recent Flowsheet Documentation Taken 06/04/2025 1344 by Ute Person RN Pain Management Interventions: pain management plan reviewed with patient/caregiver position adjusted quiet environment facilitated relaxation techniques promoted Intervention: Provide Person-Centered Care Recent Flowsheet Documentation Taken 06/04/2025 1600 by Ute Person RN Trust Relationship/Rapport: care explained emotional support provided questions answered questions encouraged thoughts/feelings acknowledged Taken 06/04/2025 1400 by Ute Person RN Trust Relationship/Rapport: care explained questions answered questions encouraged thoughts/feelings acknowledged Taken 06/04/2025 1200 by Ute Person RN Trust Relationship/Rapport: care explained questions answered questions encouraged thoughts/feelings acknowledged Taken 06/04/2025 1000 by Ute Person RN Trust Relationship/Rapport: care explained questions answered questions encouraged thoughts/feelings acknowledged Taken 06/04/2025 0810 by Ute Person RN Trust Relationship/Rapport: care explained emotional support provided questions answered questions encouraged thoughts/feelings acknowledged Goal: Readiness for Transition of Care 06/04/2025 165 by Ute Person RN Outcome: Progressing 06/04/2025 1654 by Ute Person RN Outcome: Progressing Problem: Skin Injury Risk Increased Goal: Skin Health and Integrity 06/04/20251654 by Ute Person RN Outcome: Progressing 06/04/2025 165 by Ute Person RN Outcome: Progressing Intervention: Optimize Skin Protection Recent Flowsheet Documentation Taken 06/04/2025 1600 by Ute Person RN Activity Management: activity encouraged Pressure Reduction Techniques: frequent weight shift encouraged Head of Bed (HOB) Positioning: HOB elevated Pressure Reduction Devices: positioning supports utilized Skin Protection: incontinence pads utilized protective footwear used Taken 06/04/2025 1400 by Ute Person RN Activity Management: activity encouraged Pressure Reduction Techniques: frequent weight shift encouraged Head of Bed (HOB) Positioning: HOB elevated Pressure Reduction Devices: positioning supports utilized Skin Protection: protective footwear used incontinence pads utilized Taken 06/04/2025 1200 by Ute Person RN Activity Management: activity encouraged Pressure Reduction Techniques: frequent weight shift encouraged Head of Bed (HOB) Positioning: HOB elevated Pressure Reduction Devices: positioning supports utilized Skin Protection: protective footwear used incontinence pads utilized Taken 06/04/2025 1000 by Ute Person RN Activity Management: activity encouraged Pressure Reduction Techniques: frequent weight shift encouraged Head of Bed (HOB) Positioning: HOB elevated Pressure Reduction Devices: positioning supports utilized Skin Protection: protective footwear used incontinence pads utilized Taken 06/04/2025 0810 by Ute Person RN Activity Management: activity minimized Pressure Reduction Techniques: frequent weight shift encouraged heels elevated off bed Head of Bed (HOB) Positioning: HOB elevated Pressure Reduction Devices: positioning supports utilized heel offloading device utilized pressure-redistributing mattress utilized Skin Protection: incontinence pads utilized protective footwear used Problem: Fall Injury Risk Goal: Absence of Fall and Fall-Related Injury 06/04/2025 165 by Ute Person RN Outcome: Progressing 06/04/2025 1654 by Ute Person RN Outcome: Progressing Intervention: Identify and Manage Contributors Recent Flowsheet Documentation Taken 06/04/2025 0810 by Ute Person RN Medication Review/Management: medications reviewed Intervention: Promote Injury-Free Environment Recent Flowsheet Documentation Taken 06/04/2025 1600 by Ute Person RN Safety Promotion/Fall Prevention: assistive device/personal items within reach clutter free environment maintained lighting adjusted nonskid shoes/slippers when out of bed room organization consistent safety round/check completed Taken 06/04/2025 1400 by Ute Person RN Safety Promotion/Fall Prevention: activity supervised assistive device/personal items within reach clutter free environment maintained lighting adjusted nonskid shoes/slippers when out of bed room organization consistent safety round/check completed Taken 06/04/2025 1200 by Ute Person RN Safety Promotion/Fall Prevention: clutter free environment maintained Taken 06/04/2025 1000 by Ute Person RN Safety Promotion/Fall Prevention: activity supervised assistive device/personal items within reach clutter free environment maintained lighting adjusted nonskid shoes/slippers when out of bed room organization consistent safety round/check completed Taken 06/04/2025 0810 by Ute Person RN Safety Promotion/Fall Prevention: assistive device/personal items within reach clutter free environment maintained lighting adjusted room organization consistent safety round/check completed fall prevention program maintained Goal Outcome Evaluation: * Javy De La Paz RN - 06/04/2025 3:23 PM EDT Images from the original note were not included. Wound, Ostomy and Continence (WOC) Note Reason for WOC Consultation: Wounds to coccyx, penis, scrotum and left lower extremity Patient awake and alert, familiar to WOC.. Family/support person not present. 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 Hydrofera Blue applied to the wound bed and covered with an Optifoam dressing. Additionally the patient has a healing pressure injury to the left heel. This is a stage II pressure injury. Wound was cleansed, hydrofera blue also applied tothis wound location and covered with an Optifoam dressing. Image: At the patient's sacrum, scrotum, coccyx, bilateral gluteal and ischial tuberosities there is a combination of moisture related skin breakdown and stage II pressure injuries. Due to the multiple sites, I used [place] to treat each wound topically. This should provide some barrier protection and allow the underlying tissue to heal. See wound care orders for specific instructions on how to manage these locations moving forward. Summary and Recommendation(s): 1. Refer to wound care instructions in the Orders tab 2. Specialty support surface in place: Earle a. Will order Low Air Loss (CITLALY) Mattress from [employer] Pressure Injury Prevention Protocol (initiate for a Red Scale Score of <18): Most recent Red Scale score: Sensory Perception: 3-->slightly limited Moisture: 3-->occasionally moist Activity: 2-->chairfast Mobility: 2-->very limited Nutrition: 4-->excellent Friction and Shear: 1-->problem Red Score: 15 (06/04/25 0810) -Apply Allevyn foam dressing to sacrum/coccyx and heels. -Turn q 2 hr. using spry pillow. -Apply moisture barrier cream to bottom BID & PRN, if incontinent. Thank you for consulting the WOC Nurse. WOC Team will continue to follow. Please re consult if the wound(s) worsens or new issues arise. Javy De La Paz RN, BSN, CCRN, CWOCN Wound, Ostomy and Continence (WOC) Department [facility] * Candis Riggs RN - 06/04/2025 5:50 AM EDT Problem: Adult Inpatient Plan of Care Goal: Absence of Hospital-Acquired Illness or Injury Intervention: Prevent Skin Injury Description: Perform a screening for skin injury risk, such as pressure or moisture-associated skindamage on admission and at regular intervals throughout hospital stay.Keep all areas of skin (especially folds) clean and dry.Maintain adequate skin hydration.Relieve and redistribute pressure and protect bony prominences and skin at risk for injury; implement measures based on patient- specific risk factors.Match turning and repositioning schedule to clinical condition.Encourage weight shift frequently; assist with reposition if unable to complete independently.Float heels off bed; avoid pressure on the Achilles tendon.Keep skin free from extended contact with medical devices.Optimize nutrition and hydration.Encourage functional activity and mobility, as early as tolerated.Use aids (e.g., slide boards, mechanical lift) during transfer. Recent Flowsheet Documentation Taken 06/04/2025 0000 by Candis Riggs RN Body Position: side-lying Skin Protection: incontinence pads utilized Taken 06/03/20251999 by Candis Riggs RN Body Position: side-lying Skin Protection: incontinence pads utilized Problem: Adult Inpatient Plan of Care Goal: Absence of Hospital-Acquired Illness or Injury Intervention: Prevent Infection Description: Maintain skin and mucous membrane integrity; promote hand, oral and pulmonary hygiene.Optimize fluid balance, nutrition, sleep and glycemic control to maximize infection resistance.Identify potential sources of infection early to prevent or mitigate progression of infection (e.g., wound, lines, devices).Evaluate ongoing need for invasive devices; remove promptly when no longer indicated.Review vaccination status. Recent Flowsheet Documentation Taken 06/04/2025 0000 by Candis Riggs RN Infection Prevention: hand hygiene promoted Taken 06/03/20251999 by Candis Riggs RN Infection Prevention: hand hygiene promoted Goal Outcome Evaluation: Wound care nurse consulted for wound care management. Patient turned and repositioned Q 2 hours. Oxycodone 5 mg po effective for pain management. * Ashley Sanchez PT - 06/03/2025 9:53 AM EDT Goal Outcome Evaluation: Plan of Care Reviewed With: patient Progress: no change Outcome Evaluation: PT eval completed. Patient sat at EOB however felt very dizzy and was unable tomainain balance at EOB. BP measured, 121/88 at EOB. He requested to return to supine due to fatigue. Once in bed patient rolled L and R several times for linen change. Patient presents below baselinefor functional mobility. Patient demonstrates decreased activity tolerance, deconditioning and reduced dynamic balance. Patient would continue to benefit from skilled PT services to improve dynamic balance with gait, transfers strength, and activity tolerance training in order to build endurance and reduce risk of falls. Anticipated Discharge Disposition (PT): [facility] * Joann Byrd RN - 06/03/2025 5:42 AM EDT Problem: Adult Inpatient Plan of Care Goal: Plan of Care Review Outcome: Progressing Goal: Patient-Specific Goal (Individualized) Outcome: Progressing Goal: Absence of Hospital-Acquired Illness or Injury Outcome: Progressing Intervention: Identify and Manage Fall Risk Recent Flowsheet Documentation Taken 06/03/2025 0400 by Joann Byrd RN Safety Promotion/Fall Prevention: assistive device/personal items within reach fall prevention program maintained nonskid shoes/slippers when out of bed safety round/check completed Taken 06/03/2025 0200 by Joann Byrd RN Safety Promotion/Fall Prevention: assistive device/personal items within reach fall prevention program maintained nonskid shoes/slippers when out of bed safety round/check completed Taken 06/03/2025 0000 by Joann Byrd RN Safety Promotion/Fall Prevention: assistive device/personal items within reach fall prevention program maintained nonskid shoes/slippers when out of bed safety round/check completed Taken 06/02/2025 2200 by Joann Byrd RN Safety Promotion/Fall Prevention: assistive device/personal items within [facility] fall prevention program maintained nonskid shoes/slippers when out of bed safety round/check completed Taken 06/02/20251999 by Joann Byrd RN Safety Promotion/Fall Prevention: assistive device/personal items within [facility] fall prevention program maintained nonskid shoes/slippers when out of bed safety round/check completed Intervention: Prevent Skin Injury Recent Flowsheet Documentation Taken 06/03/2025 0400 by Joann Byrd RN Body Position: turned left Skin Protection: incontinence pads utilized silicone border foam - sacrum/coccyx Taken 06/03/2025 0200 by Joann Byrd RN Body Position: turned right Skin Protection: incontinence pads utilized silicone border foam - sacrum/coccyx Taken 06/03/2025 0000 by Joann Byrd RN Body Position: turned right Skin Protection: incontinence pads utilized silicone border foam - sacrum/coccyx Taken 06/02/2025 2200 by Joann Byrd RN Body Position: right turned Skin Protection: silicone border foam - sacrum/coccyx Taken 06/02/20251999 by Joann Byrd RN Body Position: turned left Skin Protection: incontinence pads utilized silicone border foam - sacrum/coccyx Intervention: Prevent Infection Recent Flowsheet Documentation Taken 06/03/2025 0400 by Joann Byrd RN Infection Prevention: environmental surveillance performed rest/sleep promoted single patient room provided Taken 06/03/2025 0200 by Joann Byrd RN Infection Prevention: environmental surveillance performed rest/sleep promoted Taken 06/03/2025 0000 by Joann Byrd RN Infection Prevention: environmental surveillance performed rest/sleep promoted Taken 06/02/2025 2200 by Joann Byrd RN Infection Prevention: environmental surveillance performed rest/sleep promoted Taken 06/02/20251999 by Joann Byrd RN Infection Prevention: environmental surveillance performed rest/sleep promoted Goal: Optimal Comfort and Wellbeing Outcome: Progressing Intervention: Monitor Pain and Promote Comfort Recent Flowsheet Documentation Taken 06/03/2025 0400 by Joann Byrd RNsoil chemist Interventions: pain medication given Taken 06/03/2025 0200 by Joann Byrd RNsoil chemist Interventions: pain management plan reviewed with patient/caregiver position adjusted pillow support provided Taken 06/03/2025 0000 by Joann Byrd RNsoil chemist Interventions: pain medication given Taken 06/02/20252199 by Joann Byrd RNsoil chemist Interventions: pain medication given Taken 06/02/20251999 by Joann Byrd RNsoil chemist Interventions: pain medication given pillow support provided position adjusted Intervention: Provide Person-Centered Care Recent Flowsheet Documentation Taken 06/02/20251999 by Joann Byrd RN Trust Relationship/Rapport: care explained choices provided Goal: Readiness for Transition of Care Outcome: Progressing Problem: Skin Injury Risk Increased Goal: Skin Health and Integrity Outcome: Progressing Intervention: Optimize Skin Protection Recent Flowsheet Documentation Taken 06/03/2025 0400 by Joann Byrd RN Activity Management: activity encouraged Pressure Reduction Techniques: frequent weight shift encouraged weight shift assistance provided Head of Bed (HOB) Positioning: HOB elevated Pressure Reduction Devices: pressure-redistributing mattress utilized Skin Protection: incontinence pads utilized silicone border foam - sacrum/coccyx Taken 06/03/2025 0200 by Joann Byrd RN Activity Management: activity encouraged Pressure Reduction Techniques: frequent weight shift encouraged weight shift assistance provided heels elevated off bed Head of Bed (HOB) Positioning: HOB elevated Pressure Reduction Devices: pressure-redistributing mattress utilized positioning supports utilized Skin Protection: incontinence pads utilized silicone border foam - sacrum/coccyx Taken 06/03/2025 0000 by Joann Byrd RN Activity Management: activity encouraged Pressure Reduction Techniques: frequent weight shift encouraged weight shift assistance provided heels elevated off bed Head of Bed (HOB) Positioning: HOB elevated Pressure Reduction Devices: pressure-redistributing mattress utilized Skin Protection: incontinence pads utilized silicone border foam - sacrum/coccyx Taken 06/02/20252199 by Joann Byrd RN Activity Management: activity encouraged Pressure Reduction Techniques: frequent weight shift encouraged weight shift assistance provided heels elevated off bed Head of Bed (HOB) Positioning: HOB elevated Pressure Reduction Devices: pressure-redistributing mattress utilized Skin Protection: silicone border foam - sacrum/coccyx Taken 06/02/20251999 by Joann Byrd RN Activity Management: activity encouraged Pressure Reduction Techniques: frequent weight shift encouraged weight shift assistance provided Head of Bed (HOB) Positioning: HOB elevated Pressure Reduction Devices: pressure-redistributing mattress utilized Skin Protection: incontinence pads utilized silicone border foam - sacrum/coccyx documented in this encounter ED Notes * Mary Miller MD - 06/02/2025 10:25 AM EDT Subjective History of Present Illness Mr. Mcclain presents via EMS from home with weakness. He tells me he feels terrible all over. Has had gross hematuria in his Ambrose catheter for 4 days. Sometime during the night last night it came out. Has not been able to pass any urine since that time. Reports headache and and increase in his chronic low back pain. He tells me that he typically is able to make transfers from his bed to his electric wheelchair but has not been able to get out of bed for the last 4 days. Reports increased drainagefrom his left leg. Review of Systems Past Medical History: Diagnosis Date Anemia Cellulitis Diabetes mellitus Frequent falls History of DVT (deep vein thrombosis) Hyperlipidemia Hypertension Migraines Myocardial infarction Peripheral neuropathy Pneumonia Spinal stenosis Wears dentures FULL Wears glasses Allergies Allergen Reactions Keppra [Levetiracetam] Other (See Comments) Acute psychosis Bupropion Unknown (See Comments) Codeine Nausea Only Hydrocodone Unknown (See Comments) Ketorolac Tromethamine Unknown (See Comments) Past Surgical History: Procedure Laterality Date ABOVE KNEE AMPUTATION Right AMPUTATION DIGIT Left 01/28/2024 Procedure: SECOND AND THIRD TOE AMPUTATION LEFT; Surgeon: Cecil Buenrostro Jr., MD; Location: [facility] OR; Service: Orthopedics; Laterality: Left; ANTERIOR CERVICAL DISCECTOMY W/ FUSION Bilateral 07/17/2020 Procedure: Cervical discectomy anterior with fusion C3-4; Surgeon: Tyree Tan MD; Location: [facility]; Service: Neurosurgery; Laterality: Bilateral; AORTOGRAM N/A 01/26/2024 Procedure: ABDOMINAL AORTIC ANGIOGRAM, LLE ANGIOGRAM, LEFT ANTERIOR TIBIAL ATHERECTOMY, LEFT ANTERIOR TIBIAL ANGIOPLASTY; Surgeon: Archie Olvera MD; Location: [facility]; Service: Vascular; Laterality: N/A; CONTRAST: 50 ML, FT: 2 MIN 54 SEC, DOSE: 66 MGY. BACK SURGERY FOR DISC HERNIATION CARDIAC CATHETERIZATION CARDIAC CATHETERIZATION N/A 09/04/2024 Procedure: Peripheral angiography - Left lower extremity angio - Right femoral access; Surgeon: Jared Marcano MD; Location: [facility]; Service: Peripheral Vascular; Laterality: N/A; CORONARY ANGIOPLASTY WITH STENT PLACEMENT stent x 1 INCISION AND DRAINAGE FOOT Left 06/17/2023 Procedure: LEFT FOOT DEBRIDEMENT WOUND VACUUM ASSISTED CLOSURE; Surgeon: Cecil Buenrostro Jr., MD;Location: [facility]; Service: Orthopedics; Laterality: Left; INCISION AND DRAINAGE LEG Left 07/25/2023 Procedure: INCISION AND DRAINAGE HEEL, WOUND VAC; Surgeon: Cecil Buenrostro Jr., MD; Location: [facility]; Service: Orthopedics; Laterality: Left; INTERVENTIONAL RADIOLOGY PROCEDURE N/A 05/02/2019 Procedure: IVC FILTER PLACEMENT; Surgeon: Pedro Zapien MD; Location: [facility]; Service: Interventional Radiology INTERVENTIONAL RADIOLOGY PROCEDURE Left 09/07/2024 Procedure: LEFT peroneal arteriovenous fistula embolization - Right femoral access; Surgeon: Jared Marcano MD; Location: [facility]; Service: Cardiovascular; Laterality: Left; Please coordinate with Gautam Patel ([facility]) [phone] who will bring coils LUMBAR DISCECTOMY N/A 05/03/2019 Procedure: THORACIC LAMINECTOMY T11-12; Surgeon: Tyree Tan MD; Location: [facility]; Service: Neurosurgery Family History Problem Relation Age of Onset Alcohol abuse Father Social History Socioeconomic History Marital status: Single Tobacco Use Smoking status: Never Passive exposure: Never Smokeless tobacco: Never Vaping Use Vaping status: Never Used Substance and Sexual Activity Alcohol use: No Drug use: Yes Types: Marijuana Sexual activity: Defer Objective Physical Exam Vitals and nursing note reviewed. Constitutional: General: He is not in acute distress. Appearance: He is obese. HENT: Head: Normocephalic and atraumatic. Nose: Nose normal. No congestion or rhinorrhea. Eyes: General: No scleral icterus. Conjunctiva/sclera: Conjunctivae normal. Neck: Comments: No JVD Cardiovascular: Rate and Rhythm: Normal rate and regular rhythm. Heart sounds: No murmur heard. No friction rub. Pulmonary: Effort: Pulmonary effort is normal. Breath sounds: Normal breath sounds. No wheezing or rales. Abdominal: General: Bowel sounds are normal. Palpations: Abdomen is soft. Tenderness: There is abdominal tenderness. There is no guarding or rebound. Comments: Tender to palpate across the low abdomen. Large pannus. Genitourinary: Comments: He has well-healed erosion of the lateral part of the glans of his penis. Consistent withlong-term Ambrose catheter usage. There is no acute skin breakdown or erythema there. No redness or swelling in the scrotum. Musculoskeletal: General: Tenderness present. Cervical back: Normal range of motion and neck supple. Left lower leg: No edema. Comments: Right-sided below-knee amputation. Left lower leg is very erythematous, tender, foul-smelling. There is a skin defect over the distal left foot. Has healed with granulation. No drainage or skin breakdown is noted there. All toes have been removed. Has appearance of Charcot foot. Sensation decreased throughout his left leg which he tells me is chronic Skin: General: Skin is warm and dry. Coloration: Skin is not pale. Findings: Erythema present. Comments: Inspection of his sacrum shows a few small areas of superficial skin breakdown. Grade 2. None of them fully penetrate the dermis. No significant redness, drainage, or foul smell. Neurological: General: No focal deficit present. Mental Status: He is alert and oriented to person, place, and time. Motor: No weakness. Coordination: Coordination normal. Psychiatric: Mood and Affect: Mood normal. Behavior: Behavior normal. Thought Content: Thought content normal. Procedures ED Course ED Course as of 06/02/25 1509 Sat Jun 02, [address] shows inflamed bladder. A few bubbles of air. Will give Zosyn. I think he may have cellulitis in his left leg as well, we will add vancomycin [DT] 1340 Pharmacy has further reviewed his prior cultures, history VRE. Will change Vanco to Zyvox. denies any complaint at this time. Spoke with him about findings and plan for admission [DT] ED Course User Index [DT] Mary Miller MD Medical Decision Making Reviewed and interpreted prior records including labs. Ordered and interpreted multiple labs and CTscan. Consulted pharmacy and gave multiple IV antibiotics. Multiple reevaluations. Admitted him to the hospital Problems Addressed: Bacterial UTI: complicated acute illness or injury that poses a threat to life or bodily functions Cellulitis of left lower extremity: complicated acute illness or injury that poses a threat to lifeor bodily functions Displacement of Ambrose catheter, initial encounter: complicated acute illness or injury Generalized weakness: complicated acute illness or injury that poses a threat to life or bodily functions Amount and/or Complexity of Data Reviewed Labs: ordered. Decision-making details documented in ED Course. Radiology: ordered. Decision-making details documented in ED Course. ECG/medicine tests: ordered. Decision-making details documented in ED Course. Risk Prescription drug management. Decision regarding hospitalization. Final diagnoses: Cellulitis of left lower extremity Bacterial UTI Generalized weakness Displacement of Ambrose catheter, initial encounter ED Disposition ED Disposition ED Disposition Decision to Admit Condition -- Comment Level of Care: Telemetry [5] Diagnosis: Cellulitis [420343] No follow-up provider specified. Medication List No changes were made to your prescriptions during this visit. Mary Miller MD 06/02/25 1509 documented in this encounter Miscellaneous Notes * Case Management/Social Work - Tra Dill RN - 06/11/2025 2:46 PM EDT Case Management Discharge Note Final Note: Plan to transfer patient home today with [facility]. PCS form for ambulance filled out, sent to ems dept and placed on chart. [facility] to follow for nursing PT and OT. I talked with patient's sister this am and she will be home all day to let patient in the home. Patient lives with sister. Provided Post Acute Provider List?: Refused Provided Post Acute Provider Quality & Resource List?: Refused Selected Continued Care - Admitted Since 06/02/2025 Destination No services have been selected for the patient. Durable Medical Equipment No services have been selected for the patient. Dialysis/Infusion No services have been selected for the patient. Home Medical Care Coordination complete. Service Provider Services Address Phone Fax Patient Preferred [facility] [address] [place], [place] [id number] [phone] -- Therapy No services have been selected for the patient. Community Resources No services have been selected for the patient. [place] [facility] No services have been selected for the patient. Transportation Services Transportation: Ambulance Ambulance: [facility] Ambulance Status: Accepted Final Discharge Disposition Code: 06 - home with home health care * Case Management/Social Work - Rebeka Will - 06/11/2025 9:44 AM EDT Start PACC Note Home Health Referral Evaluated patient and on Home Care and services available. Patient offered choice of available HHC and agreeable to SN/PT/OT services with [facility]. Isolation Precautions: Contact START PATIENT REGISTRATION INFORMATION Order Information Order Signing Physician: Patricia Varela MD Service Ordered RN?: Yes Service Ordered PT?: Yes Service Ordered OT?: Yes Service Ordered ST?: No Service Ordered RN CARDIOVASCULAR ICU?: No Service Ordered PUMP HOUSE OPERATOR?: No Following Physician: Gustavo Mehta MD Following Physician Overseeing Physician: Gustavo Mehta MD (Required for Residents Only) Agreeable to Follow ? Yes Date/Time of Call 06/11/25 09:45 EDT, Spoke with: Care Coordination Same Day SOC?: No Primary Care Physician: Gustavo Mehta MD Primary Care Physician Primary Care Physician Address: [address] [place] [address] Visit Instructions: N/A Service Discharge Location Type: Home Service Facility Name: N/A Service Floor Facility: N/A Service Room No: N/A Demographics Patient Last Name: Harroverto Patient First Name: Vitaly Language/Communication Barrier: NO Service Address: [address] [place] [address]* Service City: [place] Service State: [place] Service Zip: [address] Service Other Phone Numbers: Telephone Information: Emergency Contact: Extended Emergency Contact Information Primary Emergency Contact: Tra Salazar Mobile Relation: Sister Journeyman Plumber needed? No Admission Information Admit Date: 06/02/2025 Patient Status at Discharge: Inpatient Admitting Diagnosis: Cellulitis [L03.90] Caregiver Information Caregiver First Name: TRA Caregiver Last Name: TUNDE Caregiver Relationship to Patient: SISTER Caregiver Caregiver Notes: N/A HITECH Hi-Tech List HIGHTECH: HI TECH - WOUND CARE Orders: YES Wound following physician: DR. MEHTA, DR. FLOR Last time wound care completed?: 06/11/2025 Supplies sent home?: Yes How many days are covered with supplies?: unknown Teachable Caregiver Teachable Caregiver First Name: TRA Teachable Caregiver Last Name: TUNDE Teachable Caregiver Relationship to Patient: SISTER Teachable Caregiver Teachable Caregiver Notes: N/A Teachable Caregiver available for Start of Care visit?: Yes Teachable Caregiver agreeable to provide skilled High Tech care per physician's orders?: Yes END PATIENT REGISTRATION INFORMATION Start PACC Summary Additional Comments: Patient also being followed by [facility]. Patient also has chronic indwelling urinary catheter. END PACC Summary Discharge Date: Pending Referral Source: [facility] Signed By: Rebeka Will, 06/11/2025, 09:45 EDT Date/Time: 06/11/25 09:45 EDT End PACC Note * Case Management/Social Work - Alisa Mendoza RN - 06/08/2025 11:52 AM EDT Case Management Discharge Note Final Note: I spoke with the pt. His goal remains home with [facility] [place]. He is not interested in inpt rehab. Rebeka with [facility] is aware of the possible DC on 06-10-2025. The pt will need ambulance transport to home. Adress on face sheet is confirmed. He denies other DC needs at this time. Provided Post Acute Provider List?: Refused Provided Post Acute Provider Quality & Resource List?: Refused Selected Continued Care - Admitted Since 06/02/2025 Destination No services have been selected for the patient. Durable Medical Equipment No services have been selected for the patient. Dialysis/Infusion No services have been selected for the patient. Home Medical Care Coordination complete. Service Provider Services Address Phone Fax Patient Preferred [facility] [address] [phone] -- Therapy No services have been selected for the patient. Community Resources No services have been selected for the patient. Community & DME No services have been selected for the patient. Final Discharge Disposition Code: 06 - home with home health care * Therapy Treatment Note - Zakiya Crews, PT - 06/07/2025 3:39 PM EDT Images from the original note were not included. Patient Name: Vitaly Pool : [phone] Today's Date: 06/07/2025 Admit Date: 06/02/2025 Visit Dx: ICD-10-CM ICD-9-CM 1. Cellulitis of left lower extremity L03.116 682.6 2. Bacterial UTI N39.0 599.0 A49.9 041.9 3. Generalized weakness R53.1 780.79 4. Displacement of Ambrose catheter, initial encounter T83.021A 996.31 Patient Active Problem List Diagnosis Acute deep vein thrombosis (DVT) of lower extremity Type 2 diabetes mellitus with foot ulcer, without long-term current use of insulin Frequent falls Primary hypertension Peripheral neuropathy Spinal stenosis of lumbar region Foot infection Spinal stenosis of thoracic region Cervical spondylosis with myelopathy Left hip pain Hyperkalemia Severe malnutrition Lactic acidosis Suicidal ideations, possible Pseudoseizures Obesity (BMI 30-39.9) Complicated migraines H/O traumatic brain injury Possible meningioma Moderate malnutrition Acute encephalopathy Adrenal insufficiency Dysphagia Pressure injury of buttock, stage 1 Pressure ulcers of skin of multiple topographic sites Cellulitis of left foot Gangrene History of DVT (deep vein thrombosis) Sepsis Hx of migraine headaches Coronary artery disease involving [place] coronary artery of [place] heart without angina pectoris Left leg cellulitis Altered mental status Peripheral vascular disease Wound infection Type 2 diabetes mellitus with diabetic peripheral angiopathy without gangrene, without long-term current use of insulin Mixed hyperlipidemia S/P AKA (above knee amputation), right CHARLIE (acute kidney injury) Type 2 diabetes mellitus, with long-term current use of insulin Arteriovenous fistula, acquired Cellulitis Past Medical History: Diagnosis Date Anemia Cellulitis Diabetes mellitus Frequent falls History of DVT (deep vein thrombosis) Hyperlipidemia Hypertension Migraines Myocardial infarction Peripheral neuropathy Pneumonia Spinal stenosis Wears dentures FULL Wears glasses Past Surgical History: Procedure Laterality Date ABOVE KNEE AMPUTATION Right AMPUTATION DIGIT Left 01/28/2024 Procedure: SECOND AND THIRD TOE AMPUTATION LEFT; Surgeon: Cecil Buenrostro Jr., MD; Location: [facility]; Service: Orthopedics; Laterality: Left; ANTERIOR CERVICAL DISCECTOMY W/ FUSION Bilateral 07/17/2020 Procedure: Cervical discectomy anterior with fusion C3-4; Surgeon: Tyree Tan MD; Location:[facility]; Service: Neurosurgery; Laterality: Bilateral; AORTOGRAM N/A 01/26/2024 Procedure: ABDOMINAL AORTIC ANGIOGRAM, LLE ANGIOGRAM, LEFT ANTERIOR TIBIAL ATHERECTOMY, LEFT ANTERIOR TIBIAL ANGIOPLASTY; Surgeon: Archie Olvera MD; Location: [facility]; Service: Vascular; Laterality: N/A; CONTRAST: 50 ML, FT: 2 MIN 54 SEC, DOSE: 66 MGY. BACK SURGERY FOR DISC HERNIATION CARDIAC CATHETERIZATION CARDIAC CATHETERIZATION N/A 09/04/2024 Procedure: Peripheral angiography - Left lower extremity angio - Right femoral access; Surgeon: Jared Marcano MD; Location: [facility]; Service: Peripheral Vascular; Laterality: N/A; CORONARY ANGIOPLASTY WITH STENT PLACEMENT stent x 1 INCISION AND DRAINAGE FOOT Left 06/17/2023 Procedure: LEFT FOOT DEBRIDEMENT WOUND VACUUM ASSISTED CLOSURE; Surgeon: Cecil Buenrostro Jr., MD;Location: [facility]; Service: Orthopedics; Laterality: Left; INCISION AND DRAINAGE LEG Left 07/25/2023 Procedure: INCISION AND DRAINAGE HEEL, WOUND VAC; Surgeon: Cecil Buenrostro Jr., MD; Location: [facility]; Service: Orthopedics; Laterality: Left; INTERVENTIONAL RADIOLOGY PROCEDURE N/A 05/02/2019 Procedure: IVC FILTER PLACEMENT; Surgeon: Pedro Zapien MD; Location: [facility]; Service: Interventional Radiology INTERVENTIONAL RADIOLOGY PROCEDURE Left 09/07/2024 Procedure: LEFT peroneal arteriovenous fistula embolization - Right femoral access; Surgeon: Jared Marcano MD; Location: [facility]; Service: Cardiovascular; Laterality: Left; Please coordinate with Gautam Patel ([facility]) [phone] who will bring coils LUMBAR DISCECTOMY N/A 05/03/2019 Procedure: THORACIC LAMINECTOMY T11-12; Surgeon: Tyree Tan MD; Location: [facility]; Service: Neurosurgery General Information Row Name 06/07/25 1614 Physical Therapy Time and Intention Document Type therapy note (daily note) -MB Mode of Treatment individual therapy;physical therapy - Row Name 06/07/25 161 General Information Patient Profile Reviewed yes Patient agreeable to therapy session with encouragement, however, reported he only wanted to get to the chair and did not want to try to sit on the edge of the bed. -MB Existing Precautions/Restrictions fall history of R BKA; LLE foot wounds and cellulitis; Ambrose catheter - Barriers to Rehab medically complex;previous functional deficit;physical barrier - Row Name 06/07/25 161 Cognition Orientation Status (Cognition) oriented to;person;place with cues for name of hospital with patientinitially reporting he was at - Row Name 06/07/25 1614 Safety Issues/Impairments Affecting Functional Mobility Safety Issues Affecting Function (Mobility) awareness of need for assistance;insight into deficits/self-awareness;judgment;safety precaution awareness;safety precautions follow-through/compliance -MB Impairments Affecting Function (Mobility) balance;endurance/activity tolerance;pain;postural/trunk control;range of motion (ROM);sensation/sensory awareness;strength - User [place] (r) = Recorded By, (t) = Taken By, (c) = Cosigned By Initials Name Provider Type Zakiya Keith, PT Physical Therapist Mobility Row Name 06/07/25 161 Bed Mobility Bed Mobility rolling left;rolling right -MB Rolling Left [place] (Bed Mobility) contact guard;1 person assist;verbal cues -MB Rolling Right [place] (Bed Mobility) minimum assist (75% patient effort);1 person assist;verbal cues -MB Assistive Device (Bed Mobility) bed rails -MB Comment, (Bed Mobility) Patient deferred EOB activity. Patient rolled both left and right for placement of repositioning sling in preparation for transfer from bed to chair. - Row Name 06/07/25 161 Bed-Chair Transfer Bed-Chair [place] (Transfers) dependent (less than 25% patient effort) -MB Assistive Device (Bed-Chair Transfers) lift device -MB Comment, (Bed-Chair Transfer) Patient transferred from bed to chair via overhead lift. Following transfer to chair patient was positioned for upright and midline posture as well as pressure relief. Patient's BP assessed post transfer to chair with 111/81 obtained. Patient with no report of dizziness. -MB Row Name 06/07/25 1617 Gait/Stairs (Locomotion) Patient was able to Ambulate no, other medical factors prevent ambulation -MB Reason Patient was unable to Ambulate Non-Ambulatory at Baseline -MB User Llanes (r) = Recorded By, (t) = Taken By, (c) = Cosigned By Initials Name Provider Type Zakiya Keith, PT Physical Therapist Obj/Interventions No documentation. Goals/Plan No documentation. Clinical Impression Row Name 06/07/25 161 Pain Pretreatment Pain Rating 7/10 -MB Posttreatment Pain Rating 7/10 -MB Pain Location extremity -MB Pain Side/Orientation left;lower -MB Pain Management Interventions nursing notified -MB Response to Pain Interventions activity participation with tolerable pain - Row Name 06/07/25 1617 Plan of Care Review Plan of Care Reviewed With patient -MB Progress improving -MB Outcome Evaluation Patient participated in PT session x 34 minutes total during which patient worked on bed mobility and transfers. Patient requiring similiar assist for rolling this date, but demonstrated improved tolerance to upright position with patient able move to sitting in chair via overhead lift. Patient's vital signs stable throughout session. Patient deferred edge of bed activity and exercises reporting he only wanted to get to the chair. Patient would continue to benefit from skilled PT services at this time. PT continues to recommend patient discharge to a [facility] facility when medically appropriate for discharge. - Row Name 06/07/25 1619 Vital Signs Pre Systolic BP Rehab 157 -MB Pre Treatment Diastolic BP 86 -MB Post Systolic BP Rehab 111 -MB Post Treatment Diastolic BP 81 -MB Pretreatment Heart Rate (beats/min) 66 -MB Posttreatment Heart Rate (beats/min) 75 -MB Pre SpO2 (%) 96 -MB O2 Delivery Pre Treatment room air -MB Post SpO2 (%) 97 -MB O2 Delivery Post Treatment room air -MB Pre Patient Position Supine -MB Post Patient Position Sitting -MB Row Name 06/07/25 1612 Positioning and Restraints Pre-Treatment Position in bed -MB Post Treatment Position chair -MB In Chair notified nsg;reclined;sitting;call light within reach;encouraged to call for assist;with nsg;waffle cushion;on mechanical lift sling;legs elevated;L heel elevated chair alarm pad and box present in room, however, power source to chair alarm not present in room, RN present in room at close of session and aware -MB User Llanes (r) = Recorded By, (t) = Taken By, (c) = Cosigned By Initials Name Provider Type Zakiya Keith, MARY Physical Therapist Outcome Measures Row Name 06/07/251623 How much help from another person do you currently need... Turning from your back to your side while in flat bed without using bedrails? 3 -MB Moving from lying on back to sitting on the side of a flat bed without bedrails? 1 -MB Moving to and from a bed to a chair (including a wheelchair)? 1 -MB Standing up from a chair using your arms (e.g., wheelchair, bedside chair)? 1 -MB Climbing 3-5 steps with a railing? 1 -MB To walk in hospital room? 1 -MB AM-PAC 6 Clicks Score (PT) 8 -MB Highest Level of Mobility Goal Sit at Edge of Bed-3 -MB Row Name 06/07/251623 Functional Assessment Outcome Measure Options AM-PAC 6 Clicks Basic Mobility (PT) - User Llanes (r) = Recorded By, (t) = Taken By, (c) = Cosigned By Initials Name Provider Type Zakiya Keith, PT Physical Therapist Physical Therapy Education Title: PT OT PEDIATRICS PHYSICIAN Therapies (In Progress) Topic: Physical Therapy (In Progress) Point: Mobility training (In Progress) Learning Progress Summary Patient Nonacceptance, E, NR by SUSAN at 06/07/20251623 Point: Home exercise program (Not Started) Learner Progress: Not documented in this visit. Point: Body mechanics (In Progress) Learning Progress Summary Patient Nonacceptance, E, NR by SUSAN at 06/07/20251623 Point: Precautions (In Progress) Learning Progress Summary Patient Nonacceptance, E, NR by SUSAN at 06/07/20251623 User Llanes Initials Effective Dates Name Provider Type Discipline SUSAN 02/09/25 - Zakiya Crews PT Physical Therapist PT PT Recommendation and Plan Recommended discharge disposition is based on the functional assessment performed by PT/OT/Speech therapy (as applicable) and may not reflect the medical necessity determined by your provider or services covered by an individual patient's insurance plan or patient resource. Progress: improving Outcome Evaluation: Patient participated in PT session x 34 minutes total during which patient worked on bed mobility and transfers. Patient requiring similiar assist for rolling this date, but demonstrated improved tolerance to upright position with patient able move to sitting in chair via overhead lift. Patient's vital signs stable throughout session. Patient deferred edge of bed activity and exercises reporting he only wanted to get to the chair. Patient would continue to benefit from skilled PT services at this time. PT continues to recommend patient discharge to a [facility] facility when medically appropriate for discharge. Time Calculation: PT Charges Row Name 06/07/25 1624 Time Calculation Start Time 1539 -MB PT Received On 06/07/25 -MB Timed Charges 18711 - PT Therapeutic Activity Minutes 34 -MB Total Minutes Timed Charges Total Minutes 34 -MB Total Minutes 34 -MB User Llanes (r) = Recorded By, (t) = Taken By, (c) = Cosigned By Initials Name Provider Type Zakiya Keith, PT Physical Therapist Therapy Charges for Today Code Description Service Date Service Provider Modifiers Qty [id number] HC PT THERAPEUTIC ACT EA 15 MIN 06/07/2025 Zakiya Crews, PT GP 2 PT G-Codes Outcome Measure Options: AM-PAC 6 Clicks Basic Mobility (PT) AM-PAC 6 Clicks Score (PT): 8 PT Discharge Summary Anticipated Discharge Disposition (PT): [facility] facility Zakiya Cresw PT 06/07/2025 * Case Management/Social Work - Alisa Mendoza RN - 06/07/2025 1:52 PM EDT Continued Stay Note COLLIN Fernando Patient Name: Vitaly Pool Today's Date: 06/07/2025 Admit Date: 06/02/2025 Plan: Home with HH Discharge Plan Row Name 06/07/25 7810 Plan Plan Home with HH Plan Comments Plan to stay in house until Wednesday to finish IV AB TX. Final Discharge Disposition Code 06 - home with home health care Discharge Codes No documentation. Expected Discharge Date and Time Expected Discharge Date Expected Discharge Time Jun 06, 2025 Alisa Mendoza, JESSEE * Case Management/Social Work - Rebeka Will - 06/05/2025 10:18 AM EDT Continued Stay Note Abdullahi Patient Name: Vitaly Pool Today's Date: 06/05/2025 Admit Date: 06/02/2025 Plan: Discharge to home with [facility] for SN/PT/OT. Discharge Plan Row Name 06/05/25 1014 Plan Plan Discharge to home with [facility] services for SN/PT/OT. Patient/Family in Agreement with Plan yes Provided Post Acute Provider List? Refused Provided Post Acute Provider Quality & Resource List? Refused Plan Comments [facility] RN following for home health/DME set up. Patient requested to transfer HH services from [facility] stating concerns with continuity of care. Patient chose and is agreeable to [facility] health and referral accepted. [facility] following for SN/PT/OT home health services. Agency metals sales representative, Rebeka Will RN notified and aware of anticipated D/C date. Patient denies any new DME needs at this time. Discharge Codes No documentation. Expected Discharge Date and Time Expected Discharge Date Expected Discharge Time Jun 06, 2025 Rebeka Wlil * Case Management/Social Work - Alisa Mendoza RN - 06/04/2025 10:30 AM EDT Discharge Planning Assessment [facility] Patient Name: Vitaly Pool Today's Date: 06/04/2025 Admit Date: 06/02/2025 Plan: Home with HH Discharge Needs Assessment Row Name 06/04/25 1026 Living Environment People in Home alone Current Living Arrangements home Living Arrangement Comments Lives in a one level home. Has waiver caregivers 2 times a week. Transfers himself to motorized . Discharge Needs Assessment Equipment Currently Used at Home wheelchair, motorized;hospital bed Equipment Needed After Discharge none Discharge Coordination/Progress The pt is current with [facility]. He uses [facility] for transport to appointments. States his neighbors help as needed. Has been to several SNFs in the past. Discharge Plan Row Name 06/04/25 1029 Plan Plan Home with Patient/Family in Agreement with Plan yes Plan Comments I spoke with the pt. He is not interested in SNF rehab at [place]. He plans home with . Will need EMS transport. Final Discharge Disposition Code 06 - home with home health care Row Name 06/04/25 0835 Plan Final Discharge Disposition Code 01 - home or self-care Continued Care and Services - Admitted Since 06/02/2025 No active coordination exists. Expected Discharge Date and Time Expected Discharge Date Expected Discharge Time Jun 06, 2025 Demographic Summary No documentation. Functional Status Row Name 06/04/25 1026 Functional Status Usual Activity Tolerance moderate Functional Status, IADL Medications independent Meal Preparation assistive person Housekeeping assistive person Laundry assistive person Shopping assistive person Psychosocial No documentation. Abuse/Neglect No documentation. Legal No documentation. Substance Abuse No documentation. Patient Forms No documentation. Alisa Mendoza RN * Significant Note - Candis Riggs RN - 06/04/2025 7:51 AM EDT 06/04/25 0740 Transfer of Care Person Report Given To JESSEE Unger * Therapy Evaluation - Ashley Sanchez PT - 06/03/2025 9:53 AM EDT Images from the original note were not included. Patient Name: Vitaly Pool : 1955 Today's Date: 06/03/2025 Admit Date: 06/02/2025 Visit Dx: ICD-10-CM ICD-9-CM 1. Cellulitis of left lower extremity L03.116 682.6 2. Bacterial UTI N39.0 599.0 A49.9 041.9 3. Generalized weakness R53.1 780.79 4. Displacement of Ambrose catheter, initial encounter T83.021A 996.31 Patient Active Problem List Diagnosis Acute deep vein thrombosis (DVT) of lower extremity Type 2 diabetes mellitus with foot ulcer, without long-term current use of insulin Frequent falls Primary hypertension Peripheral neuropathy Spinal stenosis of lumbar region Foot infection Spinal stenosis of thoracic region Cervical spondylosis with myelopathy Left hip pain Hyperkalemia Severe malnutrition Lactic acidosis Suicidal ideations, possible Pseudoseizures Obesity (BMI 30-39.9) Complicated migraines H/O traumatic brain injury Possible meningioma Moderate malnutrition Acute encephalopathy Adrenal insufficiency Dysphagia Pressure injury of buttock, stage 1 Pressure ulcers of skin of multiple topographic sites Cellulitis of left foot Gangrene History of DVT (deep vein thrombosis) Sepsis Hx of migraine headaches Coronary artery disease involving [place] coronary artery of [place] heart without angina pectoris Left leg cellulitis Altered mental status Peripheral vascular disease Wound infection Type 2 diabetes mellitus with diabetic peripheral angiopathy without gangrene, without long-term current use of insulin Mixed hyperlipidemia S/P AKA (above knee amputation), right CHARLIE (acute kidney injury) Type 2 diabetes mellitus, with long-term current use of insulin Arteriovenous fistula, acquired Cellulitis Past Medical History: Diagnosis Date Anemia Cellulitis Diabetes mellitus Frequent falls History of DVT (deep vein thrombosis) Hyperlipidemia Hypertension Migraines Myocardial infarction Peripheral neuropathy Pneumonia Spinal stenosis Wears dentures FULL Wears glasses Past Surgical History: Procedure Laterality Date ABOVE KNEE AMPUTATION Right AMPUTATION DIGIT Left 01/28/2024 Procedure: SECOND AND THIRD TOE AMPUTATION LEFT; Surgeon: Cecil Buenrostro Jr., MD; Location: [facility] OR; Service: Orthopedics; Laterality: Left; ANTERIOR CERVICAL DISCECTOMY W/ FUSION Bilateral 07/17/2020 Procedure: Cervical discectomy anterior with fusion C3-4; Surgeon: Tyree Tan MD; Location: [facility]; Service: Neurosurgery; Laterality: Bilateral; AORTOGRAM N/A 01/26/2024 Procedure: ABDOMINAL AORTIC ANGIOGRAM, LLE ANGIOGRAM, LEFT ANTERIOR TIBIAL ATHERECTOMY, LEFT ANTERIOR TIBIAL ANGIOPLASTY; Surgeon: Archie Olvera MD; Location: [facility]; Service: Vascular; Laterality: N/A; CONTRAST: 50 ML, FT: 2 MIN 54 SEC, DOSE: 66 MGY. BACK SURGERY FOR DISC HERNIATION CARDIAC CATHETERIZATION CARDIAC CATHETERIZATION N/A 09/04/2024 Procedure: Peripheral angiography - Left lower extremity angio - Right femoral access; Surgeon: Jared Marcano MD; Location: [facility]; Service: Peripheral Vascular; Laterality: N/A; CORONARY ANGIOPLASTY WITH STENT PLACEMENT stent x 1 INCISION AND DRAINAGE FOOT Left 06/17/2023 Procedure: LEFT FOOT DEBRIDEMENT WOUND VACUUM ASSISTED CLOSURE; Surgeon: Cecil Buenrostro Jr., MD;Location: [facility]; Service: Orthopedics; Laterality: Left; INCISION AND DRAINAGE LEG Left 07/25/2023 Procedure: INCISION AND DRAINAGE HEEL, WOUND VAC; Surgeon: Cecil Buenrostro Jr., MD; Location: [facility]; Service: Orthopedics; Laterality: Left; INTERVENTIONAL RADIOLOGY PROCEDURE N/A 05/02/2019 Procedure: IVC FILTER PLACEMENT; Surgeon: Pedro Zapien MD; Location: [facility]; Service: Interventional Radiology INTERVENTIONAL RADIOLOGY PROCEDURE Left 09/07/2024 Procedure: LEFT peroneal arteriovenous fistula embolization - Right femoral access; Surgeon: Jared Marcano MD; Location: [facility]; Service: Cardiovascular; Laterality: Left; Please coordinate with Gautam Patel ([facility] [phone] who will bring coils LUMBAR DISCECTOMY N/A 05/03/2019 Procedure: THORACIC LAMINECTOMY T11-12; Surgeon: Tyree Tan MD; Location: [facility] OR; Service: Neurosurgery General Information Row Name 06/03/25952 Physical Therapy Time and Intention Document Type evaluation -KW Mode of Treatment individual therapy;physical therapy -KW Row Name 06/03/25952 General Information Patient Profile Reviewed yes -KW Prior Level of Function independent:;transfer;bed mobility;w/c or scooter completes transfer to chair via slide transfer (not via sliding board), has powerchair -KW Existing Precautions/Restrictions fall -KW Barriers to Rehab medically complex -KW Row Name 06/03/25952 Living Environment People in Home alone has caregiver twice a week from 8-11 and has a couple of neighbors to help -KW Row Name 06/03/25952 Home Main Entrance Number of Stairs, Main Entrance none -KW Row Name 06/03/25952 Cognition Orientation Status (Cognition) oriented x 3 -KW Row Name 06/03/25952 Safety Issues/Impairments Affecting Functional Mobility Impairments Affecting Function (Mobility) balance;endurance/activity tolerance;pain;shortness of breath;strength -KW User Llanes (r) = Recorded By, (t) = Taken By, (c) = Cosigned By Initials Name Provider Type Ashley Manzanares PT Physical Therapist Mobility Row Name 06/03/25952 Bed Mobility Bed Mobility supine-sit;sit-supine;rolling left;rolling right -KW Rolling Left [place] (Bed Mobility) minimum assist (75% patient effort) -KW Rolling Right [place] (Bed Mobility) minimum assist (75% patient effort) -KW Supine-Sit [place] (Bed Mobility) verbal cues;moderate assist (50% patient effort) -KW Sit-Supine [place] (Bed Mobility) verbal cues;moderate assist (50% patient effort) -KW Assistive Device (Bed Mobility) bed rails;head of bed elevated -KW Row Name 06/03/25952 Sit-Stand Transfer Sit-Stand [place] (Transfers) verbal cues -KW User Llanes (r) = Recorded By, (t) = Taken By, (c) = Cosigned By Initials Name Provider Type Ashley Manzanares PT Physical Therapist Obj/Interventions Row Name 06/03/25952 Strength Comprehensive (MMT) General Manual Muscle Testing (MMT) Assessment lower extremity strength deficits identified -KW Row Name 06/03/25952 Balance Balance Assessment sitting static balance;sitting dynamic balance -KW Static Sitting Balance contact guard -KW Dynamic Sitting Balance minimal assist -KW Position, Sitting Balance sitting edge of bed;unsupported -KW Balance Interventions sitting -KW User Llanes (r) = Recorded By, (t) = Taken By, (c) = Cosigned By Initials Name Provider Type Ashley Manzanares PT Physical Therapist Goals/Plan Row Name 06/03/25952 Bed Mobility Goal 1 (PT) Activity/Assistive Device (Bed Mobility Goal 1, PT) rolling to left;rolling to right;sit to supine;supine to sit -KW [place] Level/Cues Needed (Bed Mobility Goal 1, PT) modified independence -KW Time Frame (Bed Mobility Goal 1, PT) 10 days -KW Row Name 06/03/25952 Transfer Goal 1 (PT) Activity/Assistive Device (Transfer Goal 1, PT) [id number]/[id number];wheelchair transfer -KW [place] Level/Cues Needed (Transfer Goal 1, PT) minimum assist (75% or more patient effort) -KW Time Frame (Transfer Goal 1, PT) 10 days -KW User Llanes (r) = Recorded By, (t) = Taken By, (c) = Cosigned By Initials Name Provider Type Ashley Manzanares, MARY Physical Therapist Clinical Impression Row Name 06/03/25952 Pain Pretreatment Pain Rating 7/10 -KW Pain Location extremity -KW Pain Side/Orientation left;lower -KW Row Name 06/03/25952 Plan of Care Review Plan of Care Reviewed With patient -KW Progress no change -KW Outcome Evaluation PT eval completed. Patient sat at EOB however felt very dizzy and was unable to mainain balance at EOB. BP measured, 121/88 at EOB. He requested to return to supine due to fatigue.Once in bed patient rolled L and R several times for linen change. Patient presents below baseline for functional mobility. Patient demonstrates decreased activity tolerance, deconditioning and reduced dynamic balance. Patient would continue to benefit from skilled PT services to improve dynamic balance with gait, transfers strength, and activity tolerance training in order to build endurance andreduce risk of falls. -KW Row Name 06/03/25952 Therapy Assessment/Plan (PT) Patient/Family Therapy Goals Statement (PT) to return to baseline -KW Criteria for Skilled Interventions Met (PT) yes;skilled treatment is necessary -KW Therapy Frequency (PT) daily -KW Predicted Duration of Therapy Intervention (PT) 10 days -KW Row Name 06/03/25952 Vital Signs Pre Systolic BP Rehab 126 -KW Pre Treatment Diastolic BP 77 -KW Pretreatment Heart Rate (beats/min) 81 -KW Pre SpO2 (%) 95 -KW Row Name 06/03/25952 Positioning and Restraints Pre-Treatment Position in bed -KW Post Treatment Position bed -KW In Bed supine;call light within reach;encouraged to call for assist;exit alarm on -KW User Llanes (r) = Recorded By, (t) = Taken By, (c) = Cosigned By Initials Name Provider Type Ashley Manzanares, PT Physical Therapist Outcome Measures Row Name 06/03/25 1200 06/03/25952 How much help from another person do you currently need... Turning from your back to your side while in flat bed without using bedrails? 2 -LS 2 -KW Moving from lying on back to sitting on the side of a flat bed without bedrails? 1 -LS 2 -KW Moving to and from a bed to a chair (including a wheelchair)? 1 -LS 2 -KW Standing up from a chair using your arms (e.g., wheelchair, bedside chair)? 1 - LS 1 -KW Climbing 3-5 steps with a railing? 1 -LS 1 -KW To walk in hospital room? 1 -LS 1 -KW AM-PAC 6 Clicks Score (PT) 7 -LS 9 -KW Highest Level of Mobility Goal Bed Activities/Dependent Transfer-2 -LS Sit at Edge of Bed-3 -KW Row Name 06/03/25 0953 Functional Assessment Outcome Measure Options AM-PAC 6 Clicks Basic Mobility (PT) -KW User Llanes (r) = Recorded By, (t) = Taken By, (c) = Cosigned By Initials Name Provider Type Ashley Manzanares, PT Physical Therapist Samia Matias, RN Registered Nurse Physical Therapy Education Title: PT OT PEDIATRICS PHYSICIAN Therapies (In Progress) Topic: Physical Therapy (Not Started) Point: Mobility training (Not Started) Learner Progress: Not documented in this visit. Point: Home exercise program (Not Started) Learner Progress: Not documented in this visit. Point: Body mechanics (Not Started) Learner Progress: Not documented in this visit. Point: Precautions (Not Started) Learner Progress: Not documented in this visit. PT Recommendation and Plan Recommended discharge disposition is based on the functional assessment performed by PT/OT/Speech therapy (as applicable) and may not reflect the medical necessity determined by your provider or services covered by an individual patient's insurance plan or patient resource. Therapy Frequency (PT): daily Progress: no change Outcome Evaluation: PT eval completed. Patient sat at EOB however felt very dizzy and was unable tomainain balance at EOB. BP measured, 121/88 at EOB. He requested to return to supine due to fatigue. Once in bed patient rolled L and R several times for linen change. Patient presents below baselinefor functional mobility. Patient demonstrates decreased activity tolerance, deconditioning and reduced dynamic balance. Patient would continue to benefit from skilled PT services to improve dynamic balance with gait, transfers strength, and activity tolerance training in order to build endurance and reduce risk of falls. Time Calculation: PT Evaluation Complexity History, PT Evaluation Complexity: 3 or more personal factors and/or comorbidities Examination of Body Systems (PT Eval Complexity): total of 3 or more elements Clinical Presentation (PT Evaluation Complexity): evolving Clinical Decision Making (PT Evaluation Complexity): moderate complexity Overall Complexity (PT Evaluation Complexity): moderate complexity PT Charges Row Name 06/03/25 0953 Time Calculation Start Time 1445 -KW PT Received On 06/03/25 -KW PT Goal Re-Cert Due Date 06/13/25 -KW Timed Charges 71352 - PT Therapeutic Activity Minutes 13 -KW Untimed Charges PT Eval/Re-eval Minutes 50 -KW Total Minutes Timed Charges Total Minutes 13 -KW Untimed Charges Total Minutes 50 -KW Total Minutes 63 -KW User Llanes (r) = Recorded By, (t) = Taken By, (c) = Cosigned By Initials Name Provider Type Ashley Manzanares PT Physical Therapist Therapy Charges for Today Code Description Service Date Service Provider Modifiers Qty [id number] HC PT THERAPEUTIC ACT EA 15 MIN 06/03/2025 Ashley Sanchez, PT GP 1 [id number] HC PT EVAL MOD COMPLEXITY 4 06/03/2025 Ashley Sanchez PT GP 1 PT G-Codes Outcome Measure Options: AM-PAC 6 Clicks Basic Mobility (PT) AM-PAC 6 Clicks Score (PT): 7 PT Discharge Summary Anticipated Discharge Disposition (PT): [facility] Ashley Sanchez PT 06/03/2025 documented in this encounter Plan of Treatment Scheduled Referrals Name Type Priority Associated Diagnoses Orde r Schedule Ambulatory Referral to Home Health Outpatient Referral Routine Type 2 diabetes mellitus with diabetic peripheral angiopathy without gangrene, with long-term current use of insulin Pressure injury of left buttock, stage 1 S/P AKA (above knee amputation), right Type 2 diabetes mellitus with diabetic peripheral angiopathy without gangrene, without long-term current use of insulin Wound infection Peripheral vascular disease Left leg cellulitis Pressure ulcers of skin of multiple topographic sites Ordered: 06/11/2025 documented as of this encounter Procedures Procedure Name Priority Date/Time Associated Diagnosis Comments POCT GLUCOSE FINGERSTICK Routine 06/11/2025 11:25 AM EDT POCT GLUCOSE FINGERSTICK Routine 06/11/2025 7:16 AM EDT POCT GLUCOSE FINGERSTICK Routine 06/10/2025 8:14 PM EDT SCANNED - TELEMETRY 06/10/2025 6 :49 PM EDT POCT GLUCOSE FINGERSTICK Routine 06/10/2025 4:31 PM EDT POCT GLUCOSE FINGERSTICK Routine 06/10/2025 11:43 AM EDT POCT GLUCOSE FINGERSTICK Routine 06/10/2025 7:53 AM EDT SCANNED - TELEMETRY 06/10/2025 7 :27 AM EDT CBC WITH AUTO DIFFERENTIAL Routine 06/10/2025 6:15 AM EDT CBC AND DIFFERENTIAL Routine 06/10/2025 6:15 AM EDT BASIC METABOLIC PANEL Routine 06/10/2025 6:15 AM EDT POCT GLUCOSE FINGERSTICK Routine 06/09/2025 8:06 PM EDT SCANNED - TELEMETRY 06/09/2025 8 :01 PM EDT POCT GLUCOSE FINGERSTICK Routine 06/09/2025 4:54 PM EDT POCT GLUCOSE FINGERSTICK Routine 06/09/2025 11:51 AM EDT POCT GLUCOSE FINGERSTICK Routine 06/09/2025 8:01 AM EDT CBC WITH AUTO DIFFERENTIAL Routine 06/09/2025 4:37 AM EDT CBC AND DIFFERENTIAL Routine 06/09/2025 4:37 AM EDT BASIC METABOLIC PANEL Routine 06/09/2025 4:37 AM EDT POCT GLUCOSE FINGERSTICK Routine 06/08/2025 8:47 PM EDT POCT GLUCOSE FINGERSTICK Routine 06/08/2025 4:25 PM EDT POCT GLUCOSE FINGERSTICK Routine 06/08/2025 11:17 AM EDT POCT GLUCOSE FINGERSTICK Routine 06/08/2025 7:31 AM EDT SCANNED - TELEMETRY 06/08/2025 3 :25 AM EDT POCT GLUCOSE FINGERSTICK Routine 06/07/2025 8:29 PM EDT POCT GLUCOSE FINGERSTICK Routine 06/07/2025 4:19 PM EDT POCT GLUCOSE FINGERSTICK Routine 06/07/2025 11:00 AM EDT POCT GLUCOSE FINGERSTICK Routine 06/07/2025 7:17 AM EDT POCT GLUCOSE FINGERSTICK Routine 06/06/2025 9:06 PM EDT SCANNED - TELEMETRY 06/06/2025 8 :08 PM EDT POCT GLUCOSE FINGERSTICK Routine 06/06/2025 4:25 PM EDT POCT GLUCOSE FINGERSTICK Routine 06/06/2025 11:01 AM EDT POCT GLUCOSE FINGERSTICK Routine 06/06/2025 7:43 AM EDT SCANNED - TELEMETRY 06/05/2025 8 :27 PM EDT POCT GLUCOSE FINGERSTICK Routine 06/05/2025 8:07 PM EDT SCANNED - TELEMETRY 06/05/2025 6 :40 PM EDT POCT GLUCOSE FINGERSTICK Routine 06/05/2025 4:39 PM EDT POCT GLUCOSE FINGERSTICK Routine 06/05/2025 11:02 AM EDT POCT GLUCOSE FINGERSTICK Routine 06/05/2025 7:50 AM EDT POCT GLUCOSE FINGERSTICK Routine 06/04/2025 7:50 PM EDT SCANNED - TELEMETRY 06/04/2025 7 :18 PM EDT SCANNED - TELEMETRY 06/04/2025 4 :27 PM EDT POCT GLUCOSE FINGERSTICK Routine 06/04/2025 4:10 PM EDT POCT GLUCOSE FINGERSTICK Routine 06/04/2025 11:07 AM EDT POCT GLUCOSE FINGERSTICK Routine 06/04/2025 7:16 AM EDT CBC WITH AUTO DIFFERENTIAL Urgent 06/04/2025 5:05 AM EDT SEDIMENTATION RATE Urgent 06/04/2025 5: 05 AM EDT CBC AND DIFFERENTIAL Urgent 06/04/2025 5:05 AM EDT C-REACTIVE PROTEIN Urgent 06/04/2025 5: 05 AM EDT RENAL FUNCTION PANEL Urgent 06/04/2025 5:05 AM EDT POCT GLUCOSE FINGERSTICK Routine 06/03/2025 8:15 PM EDT SCANNED - TELEMETRY 06/03/2025 7 :51 PM EDT POCT GLUCOSE FINGERSTICK Routine 06/03/2025 4:24 PM EDT POCT GLUCOSE FINGERSTICK Routine 06/03/2025 11:12 AM EDT SCANNED - TELEMETRY 06/03/2025 8 :28 AM EDT POCT GLUCOSE FINGERSTICK Routine 06/03/2025 7:24 AM EDT CBC WITH AUTO DIFFERENTIAL Urgent 06/03/2025 5:42 AM EDT PHOSPHORUS Urgent 06/03/2025 5:42 AM EDT MAGNESIUM Urgent 06/03/2025 5:42 AM EDT CK Urgent 06/03/2025 5:42 AM EDT COMPREHENSIVE METABOLIC PANEL Urgent 06/03/2025 5:42 AM EDT POCT GLUCOSE FINGERSTICK Routine 06/02/2025 8:04 PM EDT SCANNED - TELEMETRY 06/02/2025 7 :59 PM EDT WOUND OSTOMY EVAL AND TREAT Routine 06/02/2025 7:45 PM EDT POCT GLUCOSE FINGERSTICK Routine 06/02/2025 5:14 PM EDT URINALYSIS, MICROSCOPIC ONLY STAT 06/02/2025 12:31 PM EDT URINALYSIS W/ CULTURE IF INDICATED STAT 06/02/2025 12:31 PM EDT URINE CULTURE STAT 06/02/2025 12:31 PM EDT ECG 12-LEAD STAT 06/02/2025 12:[address] ABDOMEN PELVIS W CONTRAST STAT 06/02/2025 12:01 PM EDT POCT CREATININE STAT 06/02/2025 11:45 AM EDT POCT CREATININE STAT 06/02/2025 11:38 AM EDT BLOOD CULTURE STAT 06/02/2025 11:37 AM EDT COVID-19/FLUA&B/RSV, OIL AND GAS WELL TREATMENT OPERATOR SWAB IN TRANSPORT MEDIA 1 HR TAT STAT 06/02/2025 11:25 AM EDT WOUND CULTURE STAT 06/02/2025 11:04 AM EDT PROCALCITONIN STAT 06/02/2025 11:03 AM EDT CBC WITH AUTO DIFFERENTIAL STAT 06/02/2025 11:03 AM EDT CBC AND DIFFERENTIAL STAT 06/02/2025 11:03 AM EDT LACTIC ACID, PLASMA STAT 06/02/2025 1 1:03 AM EDT COMPREHENSIVE METABOLIC PANEL STAT 06/02/2025 11:03 AM EDT BLOOD CULTURE STAT 06/02/2025 10:55 AM EDT XR CHEST 1 VW STAT 06/02/2025 10:39 AM EDT SCANNED - TELEMETRY 06/02/2025 9 :44 AM EDT documented in this encounter Results * POC Glucose Once (06/11/2025 11:25 AM EDT) Glucose 92 70 - 130 mg/dL 06/11/2025 4:38 PM EDT [facility] Comment:Serial Number: [id number]: [id number] Blood 06/11/2025 11:2 5 AM EDT 06/11/2025 4:38 PM EDT us Patricia Varela MD POINT OF CARE TEST ORDER SEB Final Result [facility]
[address] [place] [address], * POC Glucose 4x Daily Before Meals & at Bedtime (06/11/2025 7:16 AM EDT) Glucose 97 70 - 130 mg/dL 06/11/2025 7:18 AM EDT [facility] Comment:Serial Number: [id number]: [id number] Blood 06/11/2025 7:16 AM EDT 06/11/2025 7:18 AM EDT Luz Denson MD POINT OF CARE TEST ORDERABLES Final Result Performing Organization Address City/[facility] Co de Phone Number [facility]
[address] [place] [address], * (ABNORMAL) POC Glucose Once (06/10/2025 8:14 PM EDT) Glucose 168(H) 70 - 130 mg/dL 06/10/2025 8:18 PM EDT [facility] Comment:Serial Number: [id number]: [id number] Blood 06/10/2025 8:14 PM EDT 06/10/2025 8:18 PM EDT Patricia Varela MD POINT OF CARE TEST ORDER SEB Final Result Performing Organization Address [facility] Co de Phone Number [facility]
[address] [place] [address], * Telemetry Scan (06/10/2025 6:49 PM EDT) [facility] ECG ORDERABLES Final Result * POC Glucose Once (06/10/2025 4:31 PM EDT) Glucose 120 70 - 130 mg/dL 06/10/2025 4:35 PM EDT [facility] Comment:Serial Number: [id number]: [id number] Blood 06/10/2025 4:31 PM EDT 06/10/2025 4:35 PM EDT Patrciia Varela MD POINT OF CARE TEST ORDER SEB Final Result Performing Organization Address [facility] de Phone Number [facility]
[address] [place] [address], * (ABNORMAL) POC Glucose 4x Daily Before Meals & at Bedtime (06/10/2025 11:43 AM EDT) Glucose 171(H) 70 - 130 mg/dL 06/10/2025 11:45 AM EDT [facility] Comment:Serial Number: [id number]: [id number] Blood 06/10/2025 11:4 3 AM EDT 06/10/2025 11:45 AM EDT Luz Denson MD POINT OF CARE TEST ORDERABLES Final Result Performing Organization Address [facility] de Phone Number [facility]
[address] [place] [address], * POC Glucose Once (06/10/2025 7:53 AM EDT) Glucose 111 70 - 130 mg/dL 06/10/2025 7:55 AM EDT [facility] Comment:Serial Number: [id number]: [id number] Blood 06/10/2025 7:53 AM EDT 06/10/2025 7:55 AM EDT Patricia Varela MD POINT OF CARE TEST ORDER SEB Final Result Performing Organization Address [facility] de Phone Number [facility]
[address] [place] [address], * Telemetry Scan (06/10/2025 7:27 AM EDT) [facility] ECG ORDERABLES Final Result * (ABNORMAL) CBC Auto Differential (06/10/2025 6:15 AM EDT) WBC 9.63 3.40 - 10.80 10*3/mm3 06/10/2025 7:11 AM EDT [facility] RBC 4.15 4.14 - 5.80 10*6/mm3 06/10/2025 7:11 AM EDT [facility] Hemoglobin 9.8(L) 13.0 - 17.7 g/dL 06/10/2025 7:11 AM EDT [facility] Hematocrit 31.5(L) 37.5 - 51.0 % 06/10/2025 7:11 AM EDT [facility] MCV 75.9(L) 79.0 - 97.0 fL 06/10/2025 7:11 AM EDT [facility] MCH 23.6(L) 26.6 - 33.0 pg 06/10/2025 7:11 AM EDT [facility] MCHC 31.1(L) 31.5 - 35.7 g/dL 06/10/2025 7:11 AM EDT [facility] RDW 17.2(H) 12.3 - 15.4 % 06/10/2025 7:11 AM EDT [facility] RDW-SD 46.5 37.0 - 54.0 fl 06/10/2025 7:11 AM EDT [facility] MPV 9.4 6.0 - 12.0 fL 06/10/2025 7:11 AM EDT [facility] Platelets 311 140 - 450 10*3/mm3 06/10/2025 7:11 AM EDT [facility] Neutrophil % 71.5 42.7 - 76.0 % 06/10/2025 7:11 AM EDT [facility] Lymphocyte % 13.8(L) 19.6 - 45.3 % 06/10/2025 7:11 AM EDT [facility] Monocyte % 8.0 5.0 - 12.0 % 06/10/2025 7:11 AM EDT [facility] Eosinophil % 5.6 0.3 - 6.2 % 06/10/2025 7:11 AM EDT [facility] Basophil % 0.6 0.0 - 1.5 % 06/10/2025 7:11 AM EDT [facility] Immature Grans % 0.5 0.0 - 0.5 % 06/10/2025 7:11 AM EDT [facility] Neutrophils, Absolute 6.88 1.70 - 7.00 10*3/mm3 06/10/2025 7:11 AM EDT [facility] Lymphocytes, Absolute 1.33 0.70 - 3.10 10*3/mm3 06/10/2025 7:11 AM EDT [facility] Monocytes, Absolute 0.77 0.10 - 0.90 10*3/mm3 06/10/2025 7:11 AM EDT [facility] Eosinophils, Absolute 0.54(H) 0.00 - 0.40 10*3/mm3 06/10/2025 7:11 AM EDT [facility] Basophils, Absolute 0.06 0.00 - 0.20 10*3/mm3 06/10/2025 7:11 AM EDT [facility] Immature Grans, Absolute 0.05 0.00 - 0.05 10*3/mm3 06/10/2025 7:11 AM EDT [facility] nRBC 0.0 0.0 - 0.2 /100 WBC 06/10/2025 7:11 AM EDT [facility] Blood Venipuncture / Unknown 06/10/2025 6:15 AM EDT 06/10/2025 6:57 AM EDT us Patricia Varela MD LAB BLOOD ORDERABLES Fin al Result [facility]
[address] [place] [address], * (ABNORMAL) Basic Metabolic Panel (06/10/2025 6:15 AM EDT) Glucose 125(H) 65 - 99 mg/dL 06/10/2025 7:22 AM EDT [facility] BUN 17.3 8.0 - 23.0 mg/dL 06/10/2025 7:22 AM EDT [facility] Creatinine 0.90 0.76 - 1.27 mg/dL 06/10/2025 7:22 AM EDT [facility] Sodium 134(L) 136 - 145 mmol/L 06/10/2025 7:22 AM [facility] Potassium 4.9 3.5 - 5.2 mmol/L 06/10/2025 7:22 AM EDT [facility] Chloride 105 98 - 107 mmol/L 06/10/2025 7:[facility] CO2 21.2(L) 22.0 - 29.0 mmol/L 06/10/2025 7:22 AM EDT [facility] Calcium 8.7 8.6 - 10.5 mg/dL 06/10/2025 7:22 AM [facility] BUN/Creatinine Ratio 19.2 7.0 - 25.0 06/10/2025 7:22 AM [facility] Anion Gap 7.8 5.0 - 15.0 mmol/L 06/10/2025 7:22 AM [facility] eGFR 91.3 >60.0 mL/min/1.7 3 06/10/2025 7:22 AM [facility] Blood Venipuncture / Unknown 06/10/2025 6:15 AM EDT 06/10/2025 6:56 AM T [facility] - 06/10/2025 7:22 AM EDT GFR Categories in Chronic Kidney Disease (CKD) GFR Category GFR (mL/min/1.73) Interpretation G1 90 or greater Normal or high (1) G2 60-89 Mild decrease (1) G3a 45-59 Mild to moderate decrease G3b 30-44 Moderate to severe decrease G4 15-29 Severe decrease G5 14 or less Kidney failure (1)In the absence of evidence of kidney disease, neither GFR category G1 or G2 fulfill the criteria for CKD. eGFR calculation 2020 CKD-EPI creatinine equation, which does not include race as a factor Patricia Varela MD LAB BLOOD ORDERABLES Fin al Result Performing Organization Address [facility] Co de Phone Number [facility]
[address] [place] [address], * (ABNORMAL) POC Glucose Once (06/09/2025 8:06 PM EDT) Glucose 155(H) 70 - 130 mg/dL 06/09/2025 8:08 PM EDT [facility] Comment:Serial Number: [id number]: [id number] Blood 06/09/2025 8:06 PM EDT 06/09/2025 8:08 PM EDT Patricia Varela MD POINT OF CARE TEST ORDER SEB Final Result Performing Organization Address [facility] de Phone Number [facility]
[address] [place] [address], * Telemetry Scan (06/09/2025 8:01 PM EDT) [facility] ECG ORDERABLES Final Result * (ABNORMAL) POC Glucose Once (06/09/2025 4:54 PM EDT) Glucose 167(H) 70 - 130 mg/dL 06/09/2025 5:12 PM EDT [facility] Comment:Serial Number: [id number]: [id number] Blood 06/09/2025 4:54 PM EDT 06/09/2025 5:12 PM EDT Patricia Varela MD POINT OF CARE TEST ORDER SEB Final Result Performing Organization Address City/[facility] Co de Phone Number [facility]
[address] [place] [address], * POC Glucose 4x Daily Before Meals & at Bedtime (06/09/2025 11:51 AM EDT) Glucose 127 70 - 130 mg/dL 06/09/2025 11:54 AM EDT [facility] Comment:Serial Number: [id number]: [id number] Blood 06/09/2025 11:5 1 AM EDT 06/09/2025 11:54 AM EDT Luz Denson MD POINT OF CARE TEST ORDERABLES Final Result Performing Organization Address [facility] de Phone Number [facility]
[address] [place] [address], * (ABNORMAL) POC Glucose 4x Daily Before Meals & at Bedtime (06/09/2025 8:01 AM EDT) Glucose 132(H) 70 - 130 mg/dL 06/09/2025 8:05 AM EDT [facility] Comment:Serial Number: [id number]: [id number] Blood 06/09/2025 8:01 AM EDT 06/09/2025 8:05 AM EDT Luz Denson MD POINT OF CARE TEST ORDERABLES Final Result Performing Organization Address [facility] de Phone Number [facility]
[address] [place] [address], * (ABNORMAL) CBC Auto Differential (06/09/2025 4:37 AM EDT) WBC 8.12 3.40 - 10.80 10*3/mm3 06/09/2025 5:47 AM EDT [facility] RBC 3.83(L) 4.14 - 5.80 10*6/mm3 06/09/2025 5:47 AM EDT [facility] Hemoglobin 9.0(L) 13.0 - 17.7 g/dL 06/09/2025 5:47 AM EDT [facility] Hematocrit 28.8(L) 37.5 - 51.0 % 06/09/2025 5:47 AM EDT [facility] MCV 75.2(L) 79.0 - 97.0 fL 06/09/2025 5:47 [facility] MCH 23.5(L) 26.6 - 33.0 pg 06/09/2025 5:47 AM [facility] MCHC 31.3(L) 31.5 - 35.7 g/dL 06/09/2025 5:47 AM [facility] RDW 17.2(H) 12.3 - 15.4 % 06/09/2025 5:47 AM [facility] RDW-SD 46.4 37.0 - 54.0 fl 06/09/2025 5:47 AM [facility] MPV 9.5 6.0 - 12.0 fL 06/09/2025 5:47 AM [facility] Platelets 277 140 - 450 10*3/mm3 06/09/2025 5:47 AM EDT [facility] Neutrophil % 61.5 42.7 - 76.0 % 06/09/2025 5:47 AM EDT [facility] Lymphocyte % 20.9 19.6 - 45.3 % 06/09/2025 5:47 AM [facility] Monocyte % 10.0 5.0 - 12.0 % 06/09/2025 5:47 AM EDT [facility] Eosinophil % 6.3(H) 0.3 - 6.2 % 06/09/2025 5:47 AM EDT [facility] Basophil % 0.6 0.0 - 1.5 % 06/09/2025 5:47 AM EDT [facility] Immature Grans % 0.7(H) 0.0 - 0.5 % 06/09/2025 5:47 AM EDT [facility] Neutrophils, Absolute 4.99 1.70 - 7.00 10*3/mm3 06/09/2025 5:47 AM EDT [facility] Lymphocytes, Absolute 1.70 0.70 - 3.10 10*3/mm3 06/09/2025 5:47 AM EDT [facility] Monocytes, Absolute 0.81 0.10 - 0.90 10*3/mm3 06/09/2025 5:47 AM EDT [facility] Eosinophils, Absolute 0.51(H) 0.00 - 0.40 10*3/mm3 06/09/2025 5:47 AM EDT [facility] Basophils, Absolute 0.05 0.00 - 0.20 10*3/mm3 06/09/2025 5:47 AM EDT [facility] Immature Grans, Absolute 0.06(H) 0.00 - 0.05 10*3/mm3 06/09/2025 5:47 AM EDT [facility] nRBC 0.0 0.0 - 0.2 /100 WBC 06/09/2025 5:47 AM EDT [facility] Blood Venipuncture / Unknown 06/09/2025 4:37 AM EDT 06/09/2025 5:30 AM EDT us Patricia Varela MD LAB BLOOD ORDERABLES Fin al Result [facility]
[address] [place] [address], * (ABNORMAL) Basic Metabolic Panel (06/09/2025 4:37 AM EDT) [facility] Glucose 140(H) 65 - 99 mg/dL 06/09/2025 6:12 AM T [facility] BUN 17.9 8.0 - 23.0 mg/dL 06/09/2025 6:12 AM [facility] Creatinine 1.00 0.76 - 1.27 mg/dL 06/09/2025 6:12 AM T [facility] Sodium 137 136 - 145 mmol/L 06/09/2025 6:12 AM EDT [facility] Potassium 4.4 3.5 - 5.2 mmol/L 06/09/2025 6:12 AM EDT [facility] Chloride 106 98 - 107 mmol/L 06/09/2025 6:12 AM [facility] CO2 21.6(L) 22.0 - 29.0 mmol/L 06/09/2025 6:12 AM [facility] Calcium 8.6 8.6 - 10.5 mg/dL 06/09/2025 6:12 AM [facility] BUN/Creatinine Ratio 17.9 7.0 - 25.0 06/09/2025 6:12 AM [facility] Anion Gap 9.4 5.0 - 15.0 mmol/L 06/09/2025 6:12 AM [facility] eGFR 80.5 >60.0 mL/min/1.7 3 06/09/2025 6:12 AM [facility] Blood Venipuncture / Unknown 06/09/2025 4:37 AM EDT 06/09/2025 5:30 AM T [facility] - 06/09/2025 6:12 AM EDT GFR Categories in Chronic Kidney Disease (CKD) GFR Category GFR (mL/min/1.73) Interpretation G1 90 or greater Normal or high (1) G2 60-89 Mild decrease (1) G3a 45-59 Mild to moderate decrease G3b 30-44 Moderate to severe decrease G4 15-29 Severe decrease G5 14 or less Kidney failure (1)In the absence of evidence of kidney disease, neither GFR category G1 or G2 fulfill the criteria for CKD. eGFR calculation 2020 CKD-EPI creatinine equation, which does not include race as a factor Patricia Varela MD LAB BLOOD ORDERABLES Fin al Result Performing Organization Address [facility]/ZIP Co de Phone Number [facility]
[address] [place] [address], * POC Glucose Once (06/08/2025 8:47 PM EDT) Glucose 130 70 - 130 mg/dL 06/08/2025 8:49 PM EDT [facility] Comment:Serial Number: [id number]: [id number] Blood 06/08/2025 8:47 PM EDT 06/08/2025 8:49 PM EDT Patricia Varela MD POINT OF CARE TEST ORDER SEB Final Result Performing Organization Address [facility] Co de Phone Number [facility]
[address] [place] [address], * (ABNORMAL) POC Glucose Once (06/08/2025 4:25 PM EDT) Glucose 163(H) 70 - 130 mg/dL 06/08/2025 4:27 PM EDT [facility] Comment:Serial Number: [id number]: [id number] Blood 06/08/2025 4:25 PM EDT 06/08/2025 4:27 PM EDT Patricia Varela MD POINT OF CARE TEST ORDER SEB Final Result Performing Organization Address City/[facility] Co de Phone Number [facility]
[address] [place] [address], * POC Glucose Once (06/08/2025 11:17 AM EDT) Glucose 100 70 - 130 mg/dL 06/08/2025 11:19 AM EDT [facility] Comment:Serial Number: [id number]: [id number] Blood 06/08/2025 11:1 7 AM EDT 06/08/2025 11:19 AM EDT Patricia Varela MD POINT OF CARE TEST ORDER SEB Final Result Performing Organization Address City/[facility]/ZIP Co de Phone Number [facility]
[address] [place] [address], * POC Glucose 4x Daily Before Meals & at Bedtime (06/08/2025 7:31 AM EDT) Glucose 100 70 - 130 mg/dL 06/08/2025 7:37 AM EDT [facility] Comment:Serial Number: [id number]: [id number] Blood 06/08/2025 7:31 AM EDT 06/08/2025 7:37 AM EDT Luz Denson MD POINT OF CARE TEST ORDERABLES Final Result Performing Organization Address City/[facility] Co de Phone Number [facility]
[address] [place] [address], * Telemetry Scan (06/08/2025 3:25 AM EDT) [facility] ECG ORDERABLES Final Result * (ABNORMAL) POC Glucose Once (06/07/2025 8:29 PM EDT) Glucose 161(H) 70 - 130 mg/dL 06/07/2025 8:32 PM EDT [facility] Comment:Serial Number: [id number]: [id number] Blood 06/07/2025 8:29 PM EDT 06/07/2025 8:32 PM EDT Patricia Varela MD POINT OF CARE TEST ORDER SEB Final Result Performing Organization Address [facility] Co de Phone Number [facility]
[address] [place] [address], * (ABNORMAL) POC Glucose Once (06/07/2025 4:19 PM EDT) Glucose 144(H) 70 - 130 mg/dL 06/07/2025 4:25 PM EDT [facility] Comment:Serial Number: [id number]: [id number] Blood 06/07/2025 4:19 PM EDT 06/07/2025 4:25 PM EDT Patricia Varela MD POINT OF CARE TEST ORDER SEB Final Result Performing Organization Address [facility] Co de Phone Number [facility]
[address] [place] [address], * POC Glucose 4x Daily Before Meals & at Bedtime (06/07/2025 11:00 AM EDT) Glucose 119 70 - 130 mg/dL 06/07/2025 11:26 AM EDT [facility] Comment:Serial Number: [id number]: [id number] Blood 06/07/2025 11:0 0 AM EDT 06/07/2025 11:26 AM EDT Luz Denson MD POINT OF CARE TEST ORDERABLES Final Result Performing Organization Address [facility] Co de Phone Number [facility]
[address] [place] [address], * POC Glucose 4x Daily Before Meals & at Bedtime (06/07/2025 7:17 AM EDT) Glucose 106 70 - 130 mg/dL 06/07/2025 7:19 AM EDT [facility] Comment:Serial Number: [id number]: [id number] Blood 06/07/2025 7:17 AM EDT 06/07/2025 7:19 AM EDT Luz Denson MD POINT OF CARE TEST ORDERABLES Final Result [facility]
[address] [place] [address], * (ABNORMAL) POC Glucose Once (06/06/2025 9:06 PM EDT) Glucose 132(H) 70 - 130 mg/dL 06/06/2025 9:16 PM EDT [facility] Comment:Serial Number: [id number]: [id number] Blood 06/06/2025 9:06 PM EDT 06/06/2025 9:16 PM EDT Alondra Lanza MD POINT OF CARE TEST ORDE RABLES Final Result Performing Organization Address [facility]/ZIP Co de Phone Number [facility]
[address] [place] [address], * Telemetry Scan (06/06/2025 8:08 PM EDT) [facility] ECG ORDERABLES Final Result * (ABNORMAL) POC Glucose Once (06/06/2025 4:25 PM EDT) Glucose 131(H) 70 - 130 mg/dL 06/06/2025 4:29 PM EDT [facility] Comment:Serial Number: [id number]: [id number] Blood 06/06/2025 4:25 PM EDT 06/06/2025 4:29 PM EDT Alondra Lanza MD POINT OF CARE TEST ORDE RABSANTINO Final Result Performing Organization Address City/[facility]/ZIP Co de Phone Number [facility]
[address] [place] [address], * (ABNORMAL) POC Glucose 4x Daily Before Meals & at Bedtime (06/06/2025 11:01 AM EDT) Glucose 134(H) 70 - 130 mg/dL 06/06/2025 11:19 AM EDT [facility] Comment:Serial Number: [id number]: [id number] Blood 06/06/2025 11:0 1 AM EDT 06/06/2025 11:19 AM EDT Luz Denson MD POINT OF CARE TEST ORDERABLES Final Result Performing Organization Address [facility] Co de Phone Number [facility]
[address] [place] [address], * POC Glucose Once (06/06/2025 7:43 AM EDT) Glucose 119 70 - 130 mg/dL 06/06/2025 8:42 AM EDT [facility] Comment:Serial Number: [id number]: [id number] Blood 06/06/2025 7:43 AM EDT 06/06/2025 8:42 AM EDT Alondra Lanza MD POINT OF CARE TEST ORDE RABSANTINO Final Result Performing Organization Address City/[facility]/ZIP Co de Phone Number [facility]
[address] [place] [address], * Telemetry Scan (06/05/2025 8:27 PM EDT) [facility] ECG ORDERABLES Final Result * (ABNORMAL) POC Glucose Once (06/05/2025 8:07 PM EDT) Glucose 146(H) 70 - 130 mg/dL 06/05/2025 8:14 PM EDT [facility] Comment:Serial Number: [id number]: [id number] Blood 06/05/2025 8:07 PM EDT 06/05/2025 8:14 PM EDT Zakiya Mccormick DO POINT OF CARE TEST ORD ERABLES Final Result Performing Organization Address City/[facility]/ZIP Co de Phone Number [facility]
[address] [place] [address], * Telemetry Scan (06/05/2025 6:40 PM EDT) [facility] ECG ORDERABLES Final Result * (ABNORMAL) POC Glucose Once (06/05/2025 4:39 PM EDT) Glucose 193(H) 70 - 130 mg/dL 06/05/2025 4:42 PM EDT [facility] Comment:Serial Number: [id number]: [id number] Blood 06/05/2025 4:39 PM EDT 06/05/2025 4:42 PM EDT Zakiya Mccormick DO POINT OF CARE TEST ORD ERABLES Final Result Performing Organization Address City/[facility]/ZIP Co de Phone Number [facility]
[address] [place] [address], * (ABNORMAL) POC Glucose 4x Daily Before Meals & at Bedtime (06/05/2025 11:02 AM EDT) Glucose 136(H) 70 - 130 mg/dL 06/05/2025 11:04 AM EDT [facility] Comment:Serial Number: [id number]: [id number] Blood 06/05/2025 11:0 2 AM EDT 06/05/2025 11:04 AM EDT Luz Denson MD POINT OF CARE TEST ORDERABLES Final Result Performing Organization Address [facility] de Phone Number [facility]
[address] [place] [address], * POC Glucose 4x Daily Before Meals & at Bedtime (06/05/2025 7:50 AM EDT) Glucose 88 70 - 130 mg/dL 06/05/2025 7:52 AM EDT [facility] Comment:Serial Number: [id number]: [id number] Blood 06/05/2025 7:50 AM EDT 06/05/2025 7:52 AM EDT Luz Denson MD POINT OF CARE TEST ORDERABLES Final Result Performing Organization Address City/[facility] Co de Phone Number [facility]
[address] [place] [address], * (ABNORMAL) POC Glucose Once (06/04/2025 7:50 PM EDT) Glucose 166(H) 70 - 130 mg/dL 06/04/2025 8:20 PM EDT [facility] Comment:Serial Number: [id number]: [id number] Blood 06/04/2025 7:50 PM EDT 06/04/2025 8:20 PM EDT Stephanie Moser MD POINT OF CARE TEST ORDERABLES Fi nal Result Performing Organization Address City/[facility] Co de Phone Number [facility]
[address] [place] [address], * Telemetry Scan (06/04/2025 7:18 PM EDT) [facility] ECG ORDERABLES Final Result * Telemetry Scan (06/04/2025 4:27 PM EDT) [facility] ECG ORDERABLES Final Result * (ABNORMAL) POC Glucose Once (06/04/2025 4:10 PM EDT) Glucose 135(H) 70 - 130 mg/dL 06/04/2025 4:12 PM EDT [facility] Comment:Serial Number: [id number]: [id number] Blood 06/04/2025 4:10 PM EDT 06/04/2025 4:12 PM EDT Stephanie Moser MD POINT OF CARE TEST ORDERABLES Fi nal Result Performing Organization Address City/[facility]/ZIP Co de Phone Number [facility]
[address] [place] [address], * POC Glucose 4x Daily Before Meals & at Bedtime (06/04/2025 11:07 AM EDT) Glucose 119 70 - 130 mg/dL 06/04/2025 11:10 AM EDT [facility] Comment:Serial Number: [id number]: [id number] Blood 06/04/2025 11:0 7 AM EDT 06/04/2025 11:10 AM EDT Luz Denson MD POINT OF CARE TEST ORDERABLES Final Result Performing Organization Address [facility] Co de Phone Number [facility]
[address] [place] [address], * POC Glucose 4x Daily Before Meals & at Bedtime (06/04/2025 7:16 AM EDT) Pathologist [facility] Glucose 77 70 - 130 mg/dL 06/04/2025 7:23 AM EDT [facility] Comment:Serial Number: [id number]: [id number] Blood 06/04/2025 7:16 AM EDT 06/04/2025 7:23 AM EDT Luz Denson MD POINT OF CARE TEST ORDERABLES Final Result Performing Organization Address [facility] Co de Phone Number [facility]
[address] [place] [address], * (ABNORMAL) CBC Auto Differential (06/04/2025 5:05 AM EDT) Pathologist [facility] WBC 9.17 3.40 - 10.80 10*3/mm3 06/04/2025 5:33 AM EDT [facility] RBC 3.71(L) 4.14 - 5.80 10*6/mm3 06/04/2025 5:33 AM EDT [facility] Hemoglobin 8.8(L) 13.0 - 17.7 g/dL 06/04/2025 5:33 AM EDT [facility] Hematocrit 28.1(L) 37.5 - 51.0 % 06/04/2025 5:33 AM EDT [facility] MCV 75.7(L) 79.0 - 97.0 fL 06/04/2025 5:33 AM EDT [facility] MCH 23.7(L) 26.6 - 33.0 pg 06/04/2025 5:33 AM [facility] MCHC 31.3(L) 31.5 - 35.7 g/dL 06/04/2025 5:33 AM [facility] RDW 17.5(H) 12.3 - 15.4 % 06/04/2025 5:33 AM [facility] RDW-SD 48.6 37.0 - 54.0 fl 06/04/2025 5:33 AM EDT [facility] MPV 9.6 6.0 - 12.0 fL 06/04/2025 5:33 AM [facility] Platelets 248 140 - 450 10*3/mm3 06/04/2025 5:33 AM [facility] Neutrophil % 61.4 42.7 - 76.0 % 06/04/2025 5:33 AM [facility] Lymphocyte % 19.8 19.6 - 45.3 % 06/04/2025 5:33 AM [facility] Monocyte % 11.1 5.0 - 12.0 % 06/04/2025 5:33 AM [facility] Eosinophil % 6.7(H) 0.3 - 6.2 % 06/04/2025 5:33 AM [facility] Basophil % 0.7 0.0 - 1.5 % 06/04/2025 5:33 AM [facility] Immature Grans % 0.3 0.0 - 0.5 % 06/04/2025 5:33 AM [facility] Neutrophils, Absolute 5.63 1.70 - 7.00 10*3/mm3 06/04/2025 5:33 AM [facility] Lymphocytes, Absolute 1.82 0.70 - 3.10 10*3/mm3 06/04/2025 5:33 AM [facility] Monocytes, Absolute 1.02(H) 0.10 - 0.90 10*3/mm3 06/04/2025 5:33 AM EDT [facility] Eosinophils, Absolute 0.61(H) 0.00 - 0.40 10*3/mm3 06/04/2025 5:33 AM EDT [facility] Basophils, Absolute 0.06 0.00 - 0.20 10*3/mm3 06/04/2025 5:33 AM EDT [facility] Immature Grans, Absolute 0.03 0.00 - 0.05 10*3/mm3 06/04/2025 5:33 AM EDT [facility] nRBC 0.0 0.0 - 0.2 /100 WBC 06/04/2025 5:33 AM EDT [facility] Blood Venipuncture / Unknown 06/04/2025 5:05 AM EDT 06/04/2025 5:26 AM EDT Zakiya Mccormick DO LAB BLOOD ORDERABLES F inal Result Performing Organization Address City/[facility]/ZIP Co de Phone Number [facility]
[address] [place] [address], * (ABNORMAL) C-reactive Protein (06/04/2025 5:05 AM EDT) C-Reactive Protein 9.09(H) 0.00 - 0.50 mg/dL 06/04/2025 6:06 AM EDT [facility] Blood Venipuncture / Unknown 06/04/2025 5:05 AM EDT 06/04/2025 5:26 AM EDT Burke Vogel MD LAB BLOOD ORDERABLES Final Resul t Performing Organization Address City/[facility]/ZIP Co de Phone Number [facility]
[address] [place] [address], * (ABNORMAL) Sedimentation Rate (06/04/2025 5:05 AM EDT) Sed Rate 127(H) 0 - 20 mm/hr 06/04/2025 6:04 AM EDT [facility] Blood Venipuncture / Unknown 06/04/2025 5:05 AM EDT 06/04/2025 5:26 AM EDT Burke Vogel MD LAB BLOOD ORDERABLES Final Resul t [facility]
[address] [place] [address], * (ABNORMAL) Renal Function Panel (06/04/2025 5:05 AM EDT) Glucose 79 65 - 99 mg/dL 06/04/2025 6:06 AM EDT [facility] BUN 21.8 8.0 - 23.0 mg/dL 06/04/2025 6:06 AM EDT [facility] Creatinine 1.01 0.76 - 1.27 mg/dL 06/04/2025 6:06 AM EDT [facility] Sodium 137 136 - 145 mmol/L 06/04/2025 6:06 AM EDT [facility] Potassium 4.4 3.5 - 5.2 mmol/L 06/04/2025 6:06 AM EDT [facility] Chloride 108(H) 98 - 107 mmol/L 06/04/2025 6:06 AM EDT [facility] CO2 19.4(L) 22.0 - 29.0 mmol/L 06/04/2025 6:06 AM EDT [facility] Calcium 8.3(L) 8.6 - 10.5 mg/dL 06/04/2025 6:06 AM EDT [facility] Albumin 2.9(L) 3.5 - 5.2 g/dL 06/04/2025 6:06 AM EDT [facility] Phosphorus 3.3 2.5 - 4.5 mg/dL 06/04/2025 6:06 AM T [facility] Anion Gap 9.6 5.0 - 15.0 mmol/L 06/04/2025 6:06 AM EDT [facility] BUN/Creatinine Ratio 21.6 7.0 - 25.0 06/04/2025 6:06 AM EDT [facility] eGFR 79.5 >60.0 mL/min/1.7 3 06/04/2025 6:06 AM EDT [facility] Blood Venipuncture / Unknown 06/04/2025 5:05 AM EDT 06/04/2025 5:26 AM EDT [facility] - 06/04/2025 6:06 AM EDT GFR Categories in Chronic Kidney Disease (CKD) GFR Category GFR (mL/min/1.73) Interpretation G1 90 or greater Normal or high (1) G2 60-89 Mild decrease (1) G3a 45-59 Mild to moderate decrease G3b 30-44 Moderate to severe decrease G4 15-29 Severe decrease G5 14 or less Kidney failure (1)In the absence of evidence of kidney disease, neither GFR category G1 or G2 fulfill the criteria for CKD. eGFR calculation 2020 CKD-EPI creatinine equation, which does not include race as a factor Zakiya Mccormick DO LAB BLOOD ORDERABLES F inal Result [facility]
[address] [place] [address], * (ABNORMAL) POC Glucose Once (06/03/2025 8:15 PM EDT) Glucose 170(H) 70 - 130 mg/dL 06/03/2025 8:18 PM EDT [facility] Comment:Serial Number: [id number]: [id number] Blood 06/03/2025 8:15 PM EDT 06/03/2025 8:18 PM EDT Zakiya Mccormick DO POINT OF CARE TEST ORD ERABLES Final Result Performing Organization Address City/[facility]/ZIP Co de Phone Number [facility]
[address] [place] [address], * Telemetry Scan (06/03/2025 7:51 PM EDT) [facility] Final Result * (ABNORMAL) POC Glucose Once (06/03/2025 4:24 PM EDT) Glucose 150(H) 70 - 130 mg/dL 06/03/2025 4:28 PM EDT [facility] Comment:Serial Number: [id number]: [id number] Blood 06/03/2025 4:24 PM EDT 06/03/2025 4:28 PM EDT Zakiya Mccormick DO POINT OF CARE TEST ORD ERABLES Final Result Performing Organization Address City/[facility]/ZIP Co de Phone Number [facility]
[address] [place] [address], * POC Glucose 4x Daily Before Meals & at Bedtime (06/03/2025 11:12 AM EDT) Glucose 127 70 - 130 mg/dL 06/03/2025 11:30 AM EDT [facility] Comment:Serial Number: [id number]: [id number] Blood 06/03/2025 11:1 2 AM EDT 06/03/2025 11:30 AM EDT Luz Desnon MD POINT OF CARE TEST ORDERABLES Final Result Performing Organization Address City/[facility]/ZIP Co de Phone Number [facility]
[address] [place] [address], * Telemetry Scan (06/03/2025 8:28 AM EDT) [facility] ECG ORDERABLES Final Result * POC Glucose 4x Daily Before Meals & at Bedtime (06/03/2025 7:24 AM EDT) Glucose 127 70 - 130 mg/dL 06/03/2025 7:52 AM EDT [facility] Comment:Serial Number: [id number]: [id number] Blood 06/03/2025 7:24 AM EDT 06/03/2025 7:52 AM EDT Luz Denson MD POINT OF CARE TEST ORDERABLES Final Result [facility]
[address] [place] [address], * CK (06/03/2025 5:42 AM EDT) Creatine Kinase 75 20 - 200 U/L 06/03/2025 3:05 PM EDT [facility] Blood Venipuncture / Unknown 06/03/2025 5:42 AM EDT 06/03/2025 6:24 AM EDT Alisa Yan APRN LAB BLOOD ORDERABLES Becca l Result [facility]
[address] [place] [address], * Phosphorus (06/03/2025 5:42 AM EDT) Phosphorus 2.9 2.5 - 4.5 mg/dL 06/03/2025 7:11 AM EDT [facility] Blood Venipuncture / Unknown 06/03/2025 5:42 AM EDT 06/03/2025 6:24 AM EDT Luz Denson MD LAB BLOOD ORDE RABLES Final Result Performing Organization Address City/[facility]/ZIP Co de Phone Number [facility]
[address] [place] [address], * Magnesium (06/03/2025 5:42 AM EDT) Magnesium 1.8 1.6 - 2.4 mg/dL 06/03/2025 7:11 AM EDT [facility] Blood Venipuncture / Unknown 06/03/2025 5:42 AM EDT 06/03/2025 6:24 AM EDT Luz Denson MD LAB BLOOD ORDE RABSANTINO Final Result Performing Organization Address [facility] de Phone Number [facility]
[address] [place] [address], * (ABNORMAL) Comprehensive Metabolic Panel (06/03/2025 5:42 AM EDT) Glucose 122(H) 65 - 99 mg/dL 06/03/2025 7:11 AM EDT [facility] BUN 23.2(H) 8.0 - 23.0 mg/dL 06/03/2025 7:11 AM EDT [facility] Creatinine 0.95 0.76 - 1.27 mg/dL 06/03/2025 7:11 AM EDT [facility] Sodium 136 136 - 145 mmol/L 06/03/2025 7:11 AM EDT [facility] Potassium 4.6 3.5 - 5.2 mmol/L 06/03/2025 7:11 AM EDT [facility] Chloride 108(H) 98 - 107 mmol/L 06/03/2025 7:11 AM EDT [facility] CO2 19.5(L) 22.0 - 29.0 mmol/L 06/03/2025 7:11 AM EDT [facility] Calcium 8.2(L) 8.6 - 10.5 mg/dL 06/03/2025 7:11 AM [facility] Total Protein 6.2 6.0 - 8.5 g/dL 06/03/2025 7:11 AM [facility] Albumin 3.0(L) 3.5 - 5.2 g/dL 06/03/2025 7:11 AM [facility] ALT (SGPT) 12 1 - 41 U/L 06/03/2025 7:11 AM [facility] AST (SGOT) 18 1 - 40 U/L 06/03/2025 7:11 AM [facility] Alkaline Phosphatase 95 39 - 117 U/L 06/03/2025 7:11 AM [facility] Total Bilirubin 0.2 0.0 - 1.2 mg/dL 06/03/2025 7:11 AM [facility] Globulin 3.2 gm/dL 06/03/2025 7:11 AM [facility] Comment:Calculated Result A/G Ratio 0.9 g/dL 06/03/2025 7:11 AM [facility] BUN/Creatinine Ratio 24.4 7.0 - 25.0 06/03/2025 7:11 AM [facility] Anion Gap 8.5 5.0 - 15.0 mmol/L 06/03/2025 7:11 AM [facility] eGFR 85.6 >60.0 mL/min/1.7 3 06/03/2025 7:11 AM [facility] Blood Venipuncture / Unknown 06/03/2025 5:42 AM EDT 06/03/2025 6:24 AM [facility] - 06/03/2025 7:11 AM EDT GFR Categories in Chronic Kidney Disease (CKD) GFR Category GFR (mL/min/1.73) Interpretation G1 90 or greater Normal or high (1) G2 60-89 Mild decrease (1) G3a 45-59 Mild to moderate decrease G3b 30-44 Moderate to severe decrease G4 15-29 Severe decrease G5 14 or less Kidney failure (1)In the absence of evidence of kidney disease, neither GFR category G1 or G2 fulfill the criteria for CKD. eGFR calculation 2020 CKD-EPI creatinine equation, which does not include race as a factor us Luz Denson MD LAB BLOOD LEVI COHEN Final Result [facility]
[address] [phone] * (ABNORMAL) CBC Auto Differential (06/03/2025 5:42 AM EDT) WBC 9.13 3.40 - 10.80 10*3/mm3 06/03/2025 6:28 AM EDT [facility] RBC 3.72(L) 4.14 - 5.80 10*6/mm3 06/03/2025 6:28 AM EDT [facility] Hemoglobin 8.6(L) 13.0 - 17.7 g/dL 06/03/2025 6:28 AM EDT [facility] Hematocrit 28.2(L) 37.5 - 51.0 % 06/03/2025 6:28 AM EDT [facility] MCV 75.8(L) 79.0 - 97.0 fL 06/03/2025 6:28 AM EDT [facility] MCH 23.1(L) 26.6 - 33.0 pg 06/03/2025 6:28 AM EDT [facility] MCHC 30.5(L) 31.5 - 35.7 g/dL 06/03/2025 6:28 AM EDT [facility] RDW 17.8(H) 12.3 - 15.4 % 06/03/2025 6:28 AM EDT [facility] RDW-SD 49.3 37.0 - 54.0 fl 06/03/2025 6:28 AM EDT [facility] MPV 10.2 6.0 - 12.0 fL 06/03/2025 6:28 AM [facility] Platelets 272 140 - 450 10*3/mm3 06/03/2025 6:28 AM [facility] Neutrophil % 66.9 42.7 - 76.0 % 06/03/2025 6:28 AM [facility] Lymphocyte % 17.5(L) 19.6 - 45.3 % 06/03/2025 6:28 AM [facility] Monocyte % 11.6 5.0 - 12.0 % 06/03/2025 6:28 AM [facility] Eosinophil % 3.2 0.3 - 6.2 % 06/03/2025 6:28 AM [facility] Basophil % 0.4 0.0 - 1.5 % 06/03/2025 6:28 AM [facility] Immature Grans % 0.4 0.0 - 0.5 % 06/03/2025 6:28 AM [facility] Neutrophils, Absolute 6.10 1.70 - 7.00 10*3/mm3 06/03/2025 6:28 AM [facility] Lymphocytes, Absolute 1.60 0.70 - 3.10 10*3/mm3 06/03/2025 6:28 AM [facility] Monocytes, Absolute 1.06(H) 0.10 - 0.90 10*3/mm3 06/03/2025 6:28 AM [facility] Eosinophils, Absolute 0.29 0.00 - 0.40 10*3/mm3 06/03/2025 6:28 AM [facility] Basophils, Absolute 0.04 0.00 - 0.20 10*3/mm3 06/03/2025 6:28 AM [facility] Immature Grans, Absolute 0.04 0.00 - 0.05 10*3/mm3 06/03/2025 6:28 AM [facility] nRBC 0.0 0.0 - 0.2 /100 WBC 06/03/2025 6:28 AM [facility] Blood Venipuncture / Unknown 06/03/2025 5:42 AM EDT 06/03/2025 6:24 AM EDT Luz Denson MD LAB BLOOD ORDE RABLES Final Result Performing Organization Address City/[facility]/ZIP Co de Phone Number [facility]
[address] [place] [address], * (ABNORMAL) POC Glucose Once (06/02/2025 8:04 PM EDT) Glucose 165(H) 70 - 130 mg/dL 06/02/2025 8:06 PM EDT [facility] Comment:Serial Number: [id number]: [id number] Blood 06/02/2025 8:04 PM EDT 06/02/2025 8:06 PM EDT Luz Denson MD POINT OF CARE TEST ORDERABLES Final Result Performing Organization Address City/[facility]/ZIP Co de Phone Number [facility]
[address] [place] [address], * Telemetry Scan (06/02/2025 7:59 PM EDT) [facility] ECG ORDERABLES Final Result * (ABNORMAL) POC Glucose 4x Daily Before Meals & at Bedtime (06/02/2025 5:14 PM EDT) Glucose 179(H) 70 - 130 mg/dL 06/02/2025 5:16 PM EDT [facility] Comment:Serial Number: [id number]: [id number] Blood 06/02/2025 5:14 PM EDT 06/02/2025 5:16 PM EDT us Luz Denson MD POINT OF CARE TEST ORDERABLES Final Result [facility]
[address] [place] [address], * (ABNORMAL) Urine Culture - Urine, Indwelling Urethral Catheter (06/02/2025 12:31 PM EDT) Urine Culture >100,000 CFU/mL Proteus mirabilis ESBL(A) MURRAY 06/06/2025 8:04 AM EDT [facility] Urine Culture >100,000 CFU/mL Escherichia coli(A) MURRAY 06/06/2025 8:04 AM EDT [facility] Urine (Indwelling Urethral Catheter) Collection / Unknown 06/02/2025 12:31 PM EDT 06/02/2025 12:38 PM EDT Narrative [facility] - 06/06/2025 8:04 AM EDT Colonization of the urinary tract without infection is common. Treatment is discouraged unless the patient is symptomatic, , or undergoing an invasive urologic procedure. Recent outcomes data supports the use of pip/tazo in the treatment of susceptible ESBL infections for uncomplicated UTI. Consider use of pip/tazo as a carbapenem-sparing regimen in applicable patients. Organism Antibiotic Method Susceptibility Proteus mirabilis ESBL Ciprofloxacin MURRAY >=4 ug/ml: Resistant Proteus mirabilis ESBL Ertapenem MURRAY <=0.12 ug/ml: Susceptible Proteus mirabilis ESBL Gentamicin MURRAY <=1 ug/ml: Susceptible Proteus mirabilis ESBL Levofloxacin MURRAY >=8 ug/ml: Resistant Proteus mirabilis ESBL Meropenem MURRAY <=0.25 ug/ml: Susceptible Proteus mirabilis ESBL Nitrofurantoin MURRAY 128 ug/ml: Resistant Proteus mirabilis ESBL Piperacillin + Tazobactam MURRAY <=4 ug/ml: Susceptible Proteus mirabilis ESBL Trimethoprim + Sulfamethoxazole MURRAY >=320 ug/ml: Resistant Escherichia coli Amoxicillin + Clavulanate MURRAY <=2 ug/ml: Susceptible Escherichia coli Ampicillin MURRAY 8 ug/ml: Susceptible Escherichia coli Ampicillin + Sulbactam MURRAY <=2 ug/ml: Susceptible Escherichia coli Cefazolin (Urine) MURRAY 2 ug/ml: Susceptible Escherichia coli Cefepime MURRAY <=0.12 ug/ml: Susceptible Escherichia coli Ceftazidime MURRAY <=0.5 ug/ml: Susceptible Escherichia coli Ceftriaxone MURRAY <=0.25 ug/ml: Susceptible Escherichia coli Cefuroxime axetil MURRAY 8 ug/ml: Intermediate Escherichia coli Ciprofloxacin MURRAY >=4 ug/ml: Resistant Escherichia coli Gentamicin MURRAY 2 ug/ml: Susceptible Escherichia coli Levofloxacin MURRAY >=8 ug/ml: Resistant Escherichia coli Nitrofurantoin MURRAY <=16 ug/ml: Susceptible Escherichia coli Piperacillin + Tazobactam MURRAY <=4 ug/ml: Susceptible Escherichia coli Trimethoprim + Sulfamethoxazole MURRAY >=320 ug/ml: Resistant us Mary Miller MD MICROBIOLOGY - GENERAL ORDERAB LES Final Result [facility]
[address] [place] [address], * (ABNORMAL) Urinalysis, Microscopic Only - Indwelling Urethral Catheter (06/02/2025 12:31 PM EDT) RBC, UA Too Numerous to Count(A) None Seen, 0-2 /HPF 06/02/2025 1:05 PM EDT [facility] WBC, UA Too Numerous to Count(A) None Seen, 0-2 /HPF 06/02/2025 1:05 PM EDT [facility] Bacteria, UA 4+(A) None Seen /HPF 06/02/2025 1:05 PM EDT [facility] Squamous Epithelial Cells, UA Unable to determine due to loaded field(A) None Seen, 0-2 /HPF 06/02/2025 1:05 PM EDT [facility] Hyaline Casts, UA Unable to determine due to loaded field None Seen /LPF 06/02/2025 1:05 PM EDT [facility] Methodology Manual Light Microscopy 06/02/2025 1:05 PM EDT [facility] Urine (Indwelling Urethral Catheter) Collection / Unknown 06/02/2025 12:31 PM EDT 06/02/2025 12:38 PM EDT Mary Miller MD URINE ORDERABLES Final Result [facility]
[address] [place] [address], * (ABNORMAL) Urinalysis With Culture If Indicated - Indwelling Urethral Catheter (06/02/2025 12:31 PMEDT) Color, UA Yellow Yellow, Straw 06/02/2025 12:46 PM EDT [facility] Appearance, UA Turbid(A) Clear 06/02/2025 12:46 PM EDT [facility] pH, UA 8.0 5.0 - 8.0 06/02/2025 12:46 PM EDT [facility] Specific [place], UA 1.019 1.005 - 1.030 06/02/2025 12:46 PM EDT [facility] Glucose, UA Negative Negative 06/02/2025 12:46 PM EDT [facility] Ketones, UA Negative Negative 06/02/2025 12:46 PM EDT [facility] Bilirubin, UA Negative Negative 06/02/2025 12:46 PM EDT [facility] Blood, UA Large (3+)(A) Negative 06/02/2025 12:46 PM EDT [facility] Protein, UA >=300 mg/dL (3+)(A) Negative 06/02/2025 12:46 PM EDT [facility] Leuk Esterase, UA Large (3+)(A) Negative 06/02/2025 12:46 PM EDT [facility] Nitrite, UA Positive(A) Negative 06/02/2025 12:46 PM EDT [facility] Urobilinogen, UA 1.0 E.U./dL 0.2 - 1.0 E.U./dL 06/02/2025 12:46 PM EDT [facility] Urine (Indwelling Urethral Catheter) Collection / Unknown 06/02/2025 12:31 PM EDT 06/02/2025 12:38 PM EDT Narrative [facility] - 06/02/2025 12:46 PM EDT In absence of clinical symptoms, the presence of pyuria, bacteria, and/or nitrites on the urinalysis result does not correlate with infection. Mary Miller MD URINE ORDERABLES Final Result [facility]
[address] [place] [address], * ECG 12 Lead Other; Weakness (06/02/2025 12:09 PM EDT) QT Interval 378 ms ECG QTC Interval 446 ms ECG 06/02/2025 12:0 9 PM EDT 06/02/2025 3:44 PM EDT Narrative ECG - 06/02/2025 3:44 PM EDT Test Reason : Other~ Blood Pressure : */* mmHG Vent. Rate : 84 BPM Atrial Rate : 84 BPM P-R Int : 146 ms QRS Dur : 108 ms QT Int : 378 ms P-R-T Axes : 60 38 22 degrees QTcB Int : 446 ms Normal sinus rhythm Normal ECG When compared with ECG of 13-Sep-2024 13:23, Sinus rhythm has replaced Atrial fibrillation Vent. rate has decreased by 70 bpm Questionable change in QRS duration Confirmed by MARY MILLER MD ([id number]) on 06/02/2025 3:44:28 PM Referred By: edmd Confirmed By: MARY MILLER MD Procedure Note Mary Miller MD - 06/02/2025 Test Reason : Other~ Blood Pressure : */* mmHG Vent. Rate : 84 BPM Atrial Rate : 84 BPM P-R Int : 146 ms QRS Dur : 108 ms QT Int : 378 ms P-R-T Axes : 60 38 22 degrees QTcB Int : 446 ms Normal sinus rhythm Normal ECG When compared with ECG of 13-Sep-2024 13:23, Sinus rhythm has replaced Atrial fibrillation Vent. rate has decreased by 70 bpm Questionable change in QRS duration Confirmed by MARY MILLER MD ([id number]) on 06/02/2025 3:44:28 PM Referred By: edmd Confirmed By: MARY MILLER MD us Mary Miller MD ECG ORDERABLES Final Result ECG * CT Abdomen Pelvis With Contrast (06/02/2025 12:01 PM EDT) Anatomical Region Laterality Modality Abdomen, Pelvis N/A Computed Tomogra phy 06/02/2025 12:1 7 PM EDT Impressions 06/02/2025 12:22 PM EDT Shaggy urinary bladder wall thickening concerning for cystitis. Locules of gas within the urinary bladder concerning for a gas-forming organism. Electronically Signed: Feliciano Garcia MD 06/02/2025 12:22 PM EDT Workstation ID: [id number] Narrative 06/02/2025 12:[address] ABDOMEN PELVIS W CONTRAST Date of Exam: 06/02/2025 11:43 AM EDT Indication: Hematuria, low abdomen pain. Comparison: 06/17/2023 Technique: Axial CT images were obtained of the abdomen and pelvis following the uneventful intravenous administration of iodinated contrast. Reconstructed coronal and sagittal images were also obtained. Automated exposure control and iterative construction methods were used. FINDINGS: Lung bases: No masses. No consolidation. Liver:No masses. No intrahepatic biliary ductal dilatation. Spleen:No masses. No perisplenic hematoma. Pancreas:No pancreatic masses. No evidence of pancreatitis. Gallbladder and common bile duct:No evidence of cholelithiasis. No evidence of cholecystitis. Adrenal glands:No adrenal masses Kidneys and ureters:No kidney stones. No renal masses.No calculi present within the ureters. Normal caliber ureters. Urinary bladder: Irregular urinary bladder wall thickening concerning for cystitis. Small locules of gas within the urinary bladder may be due to a gas-forming organism or recent instrumentation. Small bowel:Normal caliber small bowel. Large bowel:No diverticulosis or diverticulitis. No large bowel masses are appreciated Appendix: Normal GENITOURINARY: Normal prostate Ascites or pneumoperitoneum:None. Adenopathy:None present Osseous structures: The proximal femurs are intact. Significant degenerative changes of the hips. The pubic bones are intact. The sacrum and sacroiliac joints are normal. Chronic mild loss of height of T11 and T12. Vacuum disc phenomenon at T10-T11, T11-T12, and L1-L2. Multilevel facet disease. No spondylolysis. Multilevel facet disease. Other findings: IVC filter. Atheromatous disease of the abdominal aorta and visualized branches. Procedure Note Feliciano Garcia MD - 06/02/2025 CT ABDOMEN PELVIS W CONTRAST Date of Exam: 06/02/2025 11:43 AM EDT Indication: Hematuria, low abdomen pain. Comparison: 06/17/2023 Technique: Axial CT images were obtained of the abdomen and pelvisfollowing the uneventful intravenous administration of iodinated contrast.Reconstructed coronal and sagittal images were also obtained. Automatedexposure control and iterative construction methods were used. FINDINGS: Lung bases: No masses. No consolidation. Liver:No masses. No intrahepatic biliary ductal dilatation. Spleen:No masses. No perisplenic hematoma. Pancreas:No pancreatic masses. No evidence of pancreatitis. Gallbladder and common bile duct:No evidence of cholelithiasis. Noevidence of cholecystitis. Adrenal glands:No adrenal masses Kidneys and ureters:No kidney stones. No renal masses.No calculi presentwithin the ureters. Normal caliber ureters. Urinary bladder: Irregular urinary bladder wall thickening concerning forcystitis. Small locules of gas within the urinary bladder may be due to agas-forming organism or recent instrumentation. Small bowel:Normal caliber small bowel. Large bowel:No diverticulosis or diverticulitis. No large bowel masses areappreciated Appendix: Normal GENITOURINARY: Normal prostate Ascites or pneumoperitoneum:None. Adenopathy:None present Osseous structures: The proximal femurs are intact. Significantdegenerative changes of the hips. The pubic bones are intact. The sacrumand sacroiliac joints are normal. Chronic mild loss of height of T11 andT12. Vacuum disc phenomenon at T10-T11, T11-T12, and L1-L2. Multilevel facet disease. No spondylolysis. Multilevelfacet disease. Other findings: IVC filter. Atheromatous disease of the abdominal aortaand visualized branches. IMPRESSION: Shaggy urinary bladder wall thickening concerning for cystitis. Locules ofgas within the urinary bladder concerning for a gas-forming organism. Electronically Signed: Feliciano Garcia MD 06/02/2025 12:22 PM EDT Workstation ID: [id number] us Mary Miller MD IMG CT ORDERABLES Final Result * POC Creatinine (06/02/2025 11:45 AM EDT) Creatinine 1.10 0.60 - 1.30 mg/dL [facility] Blood 06/02/2025 11:4 5 AM EDT us Mary Miller MD POINT OF CARE TEST ORDERABLES Final Result [facility]
[address] [id number], [place] [phone] * POC Creatinine (06/02/2025 11:38 AM EDT) [facility] Creatinine 1.10 0.60 - 1.30 mg/dL 06/02/2025 11:55 AM EDT [facility] Comment:Serial Number: [id number] 7Operator: [id number] Venous Blood 06/02/2025 11:3 8 AM EDT 06/02/2025 11:55 AM EDT us Mary Miller MD POINT OF CARE TEST ORDERABLES Final Result [facility]
[address] [place] [address], [place] [phone] * Blood Culture - Blood, Hand, Right (06/02/2025 11:37 AM EDT) Blood Culture No growth at 5 days 06/07/2025 11:45 AM EDT [facility] Blood Structure of right hand / Unknown Venipuncture / Unknown 06/02/2025 11:37 AM EDT 06/02/2025 11:43 AM EDT us Mary Miller MD MICROBIOLOGY - GENERAL ORDERAB LES Final Result [facility]
[address] [place] [address], [place] [phone] * COVID-19, FLU A/B, RSV PCR 1 HR TAT - Swab, Nasopharynx (06/02/2025 11:25 AM EDT) [facility] COVID19 Not Detected Not Detected - Ref. Range CEPHEID GENEXPERT 06/02/2025 12:39 PM EDT [facility] Influenza A PCR Not Detected Not Detected CEPHEID GENEXPERT 06/02/2025 12:39 PM EDT [facility] Influenza B PCR Not Detected Not Detected CEPHEID GENEXPERT 06/02/2025 12:39 PM EDT [facility] RSV, PCR Not Detected Not Detected CEPHEID GENEXPERT 06/02/2025 12:39 PM EDT [facility] Swab Nasopharyngeal structure / Unknown Collection / Unknown 06/02/2025 11:25 AM EDT 06/02/2025 11:39 AM EDT us Mary Miller MD MICROBIOLOGY - GENERAL ORDERAB LES Final Result [facility]
[address] [place] [address], [place] [phone] * (ABNORMAL) Wound Culture - Swab, Leg, Left (06/02/2025 11:04 AM EDT) [facility] Wound Culture Light growth (2+) Proteus mirabilis(A) MURRAY 06/07/2025 7:54 AM EDT [facility] Wound Culture Moderate growth (3+) Staphylococcus aureus, MRSA(A) MURRAY 06/07/2025 7:54 AM EDT [facility] Comment: Methicillin resistant Staphylococcus aureus, Patient may be an isolation risk. Wound Culture Light growth (2+) Pseudomonas aeruginosa(A) MURRAY 06/07/2025 7:54 AM EDT [facility] Comment: Gram Stain Occasional WBCs seen 06/07/2025 7:54 AM EDT [facility] Gram Stain Rare (1+) Gram positive cocci in pairs 06/07/2025 7:54 AM EDT [facility] Swab Structure of left lower limb / Unknown Collection / Unknown 06/02/2025 11:04 AM EDT 06/02/2025 11:14 AM EDT Narrative Organism Antibiotic Method Susceptibility Proteus mirabilis Amoxicillin + Clavulanate MURRAY 8 ug/ml: Susceptible Proteus mirabilis Ampicillin MURRAY >=32 ug/ml: Resistant Proteus mirabilis Ampicillin + Sulbactam MURRAY 8 ug/ml: Susceptible Proteus mirabilis Cefazolin (Non Urine) MURRAY >=32 ug/ml: Resistant Proteus mirabilis Cefepime MURRAY 16 ug/ml: Resistant Proteus mirabilis Ceftazidime MURRAY 8 ug/ml: Intermediate Proteus mirabilis Ceftriaxone MURRAY 32 ug/ml: Resistant Proteus mirabilis Cefuroxime axetil MURRAY >=64 ug/ml: Resistant Proteus mirabilis Ciprofloxacin MURRAY >=4 ug/ml: Resistant Proteus mirabilis Gentamicin MURRAY <=1 ug/ml: Susceptible Proteus mirabilis Levofloxacin MURRAY >=8 ug/ml: Resistant Proteus mirabilis Piperacillin + Tazobactam MURRAY <=4 ug/ml: Susceptible Proteus mirabilis Tetracycline MURRAY >=16 ug/ml: Resistant Proteus mirabilis Trimethoprim + Sulfamethoxazole MURRAY >=320 ug/ml: Resistant Comment:With the exception o f urinary-sourced infections, aminoglycosides should not be used as monotherapy. Staphylococcus aureus, MRSA Clindamycin MURRAY 0.25 ug/ml: Susceptible Staphylococcus aureus, MRSA Daptomycin MURRAY 0.25 ug/ml: Susceptible Comment:Appended rep ort. These results have been appended to a previously final verified report. Staphylococcus aureus, MRSA Erythromycin MURRAY >=8 ug/ml: Resistant Staphylococcus aureus, MRSA Oxacillin MURRAY >=4 ug/ml: Resistant Staphylococcus aureus, MRSA Rifampin MURRAY <=0.5 ug/ml: Susceptible Staphylococcus aureus, MRSA Tetracycline MURRAY <=1 ug/ml: Susceptible Staphylococcus aureus, MRSA Trimethoprim + Sulfamethoxazole MURRAY >=320 ug/ml: Resistant Staphylococcus aureus, MRSA Vancomycin MURRAY <=0.5 ug/ml: Susceptible Comment:Daptomycin per Dr. Zahraa vance. Pseudomonas aeruginosa Cefepime MURRAY 8 ug/ml: Susceptible Pseudomonas aeruginosa Ceftazidime MURRAY 2 ug/ml: Susceptible Pseudomonas aeruginosa Ciprofloxacin MURRAY >=4 ug/ml: Resistant Pseudomonas aeruginosa Levofloxacin MURRAY >=8 ug/ml: Resistant Pseudomonas aeruginosa Meropenem MURRAY 1 ug/ml: Susceptible Comment:Appended rep ort. These results have been appended to a previously final verified report. Pseudomonas aeruginosa Piperacillin + Tazobactam MURRAY 16 ug/ml: Susceptible Pseudomonas aeruginosa Tobramycin MURRAY <=1 ug/ml: Susceptible Comment: Meropenem requested by Dr Rivera 06/07/25. With the exception of urinary-sourced infections, aminoglycosides should not be used as monotherapy. Mary Miller MD MICROBIOLOGY - GENERAL ORDERAB LES Edited Result - Final [facility]
[address] [place] [address], [place] [phone] [facility]
[address] [place] [address], * (ABNORMAL) CBC Auto Differential (06/02/2025 11:03 AM EDT) [facility] WBC 7.85 3.40 - 10.80 10*3/mm3 06/02/2025 11:15 AM EDT [facility] RBC 4.26 4.14 - 5.80 10*6/mm3 06/02/2025 11:15 AM EDT [facility] Hemoglobin 9.7(L) 13.0 - 17.7 g/dL 06/02/2025 11:15 AM [facility] Hematocrit 31.8(L) 37.5 - 51.0 % 06/02/2025 11:15 [facility] MCV 74.6(L) 79.0 - 97.0 fL 06/02/2025 11:15 [facility] MCH 22.8(L) 26.6 - 33.0 pg 06/02/2025 11:15 [facility] MCHC 30.5(L) 31.5 - 35.7 g/dL 06/02/2025 11:15 AM [facility] RDW 17.4(H) 12.3 - 15.4 % 06/02/2025 11:15 AM [facility] RDW-SD 47.0 37.0 - 54.0 fl 06/02/2025 11:15 AM [facility] MPV 9.7 6.0 - 12.0 fL 06/02/2025 11:15 AM [facility] Platelets 262 140 - 450 10*3/mm3 06/02/2025 11:15 AM [facility] Neutrophil % 80.9(H) 42.7 - 76.0 % 06/02/2025 11:15 AM [facility] Lymphocyte % 9.8(L) 19.6 - 45.3 % 06/02/2025 11:15 AM [facility] Monocyte % 8.0 5.0 - 12.0 % 06/02/2025 11:15 AM [facility] Eosinophil % 0.1(L) 0.3 - 6.2 % 06/02/2025 11:15 AM [facility] Basophil % 0.8 0.0 - 1.5 % 06/02/2025 11:15 AM [facility] Immature Grans % 0.4 0.0 - 0.5 % 06/02/2025 11:15 AM [facility] Neutrophils, Absolute 6.35 1.70 - 7.00 10*3/mm3 06/02/2025 11:15 AM EDT [facility] Lymphocytes, Absolute 0.77 0.70 - 3.10 10*3/mm3 06/02/2025 11:15 AM EDT [facility] Monocytes, Absolute 0.63 0.10 - 0.90 10*3/mm3 06/02/2025 11:15 AM EDT [facility] Eosinophils, Absolute 0.01 0.00 - 0.40 10*3/mm3 06/02/2025 11:15 AM EDT [facility] Basophils, Absolute 0.06 0.00 - 0.20 10*3/mm3 06/02/2025 11:15 AM EDT [facility] Immature Grans, Absolute 0.03 0.00 - 0.05 10*3/mm3 06/02/2025 11:15 AM EDT [facility] nRBC 0.0 0.0 - 0.2 /100 WBC 06/02/2025 11:15 AM EDT [facility] Blood Venipuncture / Unknown 06/02/2025 11:03 AM EDT 06/02/2025 11:09 AM EDT us Mary Miller MD LAB BLOOD ORDERABLES Final Res ult [facility]
[address] [place] [address], * Procalcitonin (06/02/2025 11:03 AM EDT) Procalcitonin 0.22 0.00 - 0.25 ng/mL 06/02/2025 11:36 AM EDT [facility] Blood Venipuncture / Unknown 06/02/2025 11:03 AM EDT 06/02/2025 11:09 AM EDT Narrative [facility] - 06/02/2025 11:36 AM EDT As a Marker for Sepsis (Non-Neonates): 1. <0.5 ng/mL represents a low risk of severe sepsis and/or septic shock. 2. >2 ng/mL represents a high risk of severe sepsis and/or septic shock. As a Marker for Lower Respiratory Tract Infections that require antibiotic therapy: PCT on Admission Antibiotic Therapy 6-12 Hrs later >0.5 Strongly Recommended >0.25 - <0.5 Recommended 0.1 - 0.25 Discouraged Remeasure/reassess PCT <0.1 Strongly Discouraged Remeasure/reassess PCT As 28 day mortality risk marker: Change in Procalcitonin Result (>80% or <=80%) if Day 0 (or Day 1) and Day 4 values are available. Refer to http://www.xrjqny-bco-dymfwwgsxk.com Change in PCT <=80% A decrease of PCT levels below or equal to 80% defines a positive change in PCT test result representing a higher risk for 28-day all-cause mortality of patients diagnosed with severe sepsis for septic shock. Change in PCT >80% A decrease of PCT levels of more than 80% defines a negative change in PCT result representing a lower risk for 28-day all-cause mortality of patients diagnosed with severe sepsis or septic shock. us Mary Miller MD LAB BLOOD ORDERABLES Final Res ult Performing Organization Address City/State/[facility] Co de Phone Number [facility]
[address] [place] [address], * Lactic Acid, Plasma (06/02/2025 11:03 AM EDT) [facility] Lactate 0.9 0.5 - 2.0 mmol/L 06/02/2025 11:27 AM EDT [facility] Comment:Falsely depressed re sults may occur on samples drawn from patients receiving N-Acetylcysteine (NAC) or Metamizole. Blood Venipuncture / Unknown 06/02/2025 11:03 AM EDT 06/02/2025 11:09 AM EDT us Mary Miller MD LAB BLOOD ORDERABLES Final Res ult [facility]
[address] [place] [address], * (ABNORMAL) Comprehensive Metabolic Panel (06/02/2025 11:03 AM EDT) Glucose 182(H) 65 - 99 mg/dL 06/02/2025 11:36 AM EDT [facility] BUN 30.6(H) 8.0 - 23.0 mg/dL 06/02/2025 11:36 AM EDT [facility] Creatinine 0.99 0.76 - 1.27 mg/dL 06/02/2025 11:36 AM EDT [facility] Sodium 134(L) 136 - 145 mmol/L 06/02/2025 11:36 AM EDT [facility] Potassium 4.5 3.5 - 5.2 mmol/L 06/02/2025 11:36 AM EDT [facility] Chloride 106 98 - 107 mmol/L 06/02/2025 11:36 AM EDT [facility] CO2 18.6(L) 22.0 - 29.0 mmol/L 06/02/2025 11:36 AM EDT [facility] Calcium 8.6 8.6 - 10.5 mg/dL 06/02/2025 11:36 AM EDT [facility] Total Protein 7.1 6.0 - 8.5 g/dL 06/02/2025 11:36 AM EDT [facility] Albumin 3.4(L) 3.5 - 5.2 g/dL 06/02/2025 11:36 AM EDT [facility] ALT (SGPT) 14 1 - 41 U/L 06/02/2025 11:36 AM EDT [facility] AST (SGOT) 18 1 - 40 U/L 06/02/2025 11:36 AM EDT [facility] Alkaline Phosphatase 112 39 - 117 U/L 06/02/2025 11:36 AM EDT [facility] Total Bilirubin 0.2 0.0 - 1.2 mg/dL 06/02/2025 11:36 AM EDT [facility] Globulin 3.7 gm/dL 06/02/2025 11:36 AM EDT [facility] Comment:Calculated Result A/G Ratio 0.9 g/dL 06/02/2025 11:36 AM EDT [facility] BUN/Creatinine Ratio 30.9(H) 7.0 - 25.0 06/02/2025 11:36 AM EDT [facility] Anion Gap 9.4 5.0 - 15.0 mmol/L 06/02/2025 11:36 AM EDT [facility] eGFR 81.4 >60.0 mL/min/1.7 3 06/02/2025 11:36 AM T [facility] Blood Venipuncture / Unknown 06/02/2025 11:03 AM EDT 06/02/2025 11:09 AM EDT Narrative [facility] - 06/02/2025 11:36 AM EDT GFR Categories in Chronic Kidney Disease (CKD) GFR Category GFR (mL/min/1.73) Interpretation G1 90 or greater Normal or high (1) G2 60-89 Mild decrease (1) G3a 45-59 Mild to moderate decrease G3b 30-44 Moderate to severe decrease G4 15-29 Severe decrease G5 14 or less Kidney failure (1)In the absence of evidence of kidney disease, neither GFR category G1 or G2 fulfill the criteria for CKD. eGFR calculation 2020 CKD-EPI creatinine equation, which does not include race as a factor us Mary Miller MD LAB BLOOD ORDERABLES Final Res ult [facility]
[address] [place] [address], * Blood Culture - Blood, Hand, Right (06/02/2025 10:55 AM EDT) Blood Culture No growth at 5 days 06/07/2025 11:45 AM EDT [facility] Blood Structure of right hand / Unknown Venipuncture / Unknown 06/02/2025 10:55 AM EDT 06/02/2025 11:40 AM EDT us Mary Miller MD MICROBIOLOGY - GENERAL ORDERAB LES Final Result [facility]
[address] [place] [address], * XR Chest 1 View (06/02/2025 10:39 AM EDT) Anatomical Region Laterality Modality Body N/A Radiographic Martha ging 06/02/2025 10:4 3 AM EDT Impressions 06/02/2025 10:45 AM EDT Impression: Stable appearance of the chest without focal airspace consolidation. Electronically Signed: Rony Monsalve MD 06/02/2025 10:45 AM EDT Workstation ID: [id number] Narrative 06/02/2025 10:45 AM EDT XR CHEST 1 VW Date of Exam: 06/02/2025 10:30 AM EDT Indication: Weakness. Comparison: Chest radiograph 09/10/2024. Findings: Enlarged cardiac silhouette, unchanged. Thoracic aortic calcifications. Chronic/senescent changes of the lungs. No distinct airspace consolidation. No sizable pleural effusion. No pneumothorax. Thoracic spondylosis. Procedure Note Rony Monsalve MD - 06/02/2025 XR CHEST 1 VW Date of Exam: 06/02/2025 10:30 AM EDT Indication: Weakness. Comparison: Chest radiograph 09/10/2024. Findings: Enlarged cardiac silhouette, unchanged. Thoracic aortic calcifications.Chronic/senescent changes of the lungs. No distinct airspaceconsolidation. No sizable pleural effusion. No pneumothorax. Thoracicspondylosis. IMPRESSION: Impression: Stable appearance of the chest without focal airspace consolidation. Electronically Signed: Rony Monsalve MD 06/02/2025 10:45 AM EDT Workstation ID: [id number] us Mary Miller MD IMG DIAGNOSTIC IMAGING ORDERAB LES Final Result * Telemetry Scan (06/02/2025 9:44 AM EDT) [facility] ORDERABLES Final Result documented in this encounter Visit Diagnoses Diagnosis Cellulitis of left lower extremity- Primary Bacterial UTI Urinary tract infection, site not specified Generalized weakness Displacement of Ambrose catheter, initial encounter Type 2 diabetes mellitus with diabetic peripheral angiopathy without gangrene, with long-term current use of insulin Pressure injury of left buttock, stage 1 S/P AKA (above knee amputation), right Type 2 diabetes mellitus with diabetic peripheral angiopathy without gangrene, without long-term current use of insulin Wound infection Posttraumatic wound infection not elsewhere classified Peripheral vascular disease Unspecified peripheral vascular disease Left leg cellulitis Pressure ulcers of skin of multiple topographic sites Cellulitis of left foot Cellulitis Cellulitis and abscess of unspecified site Cellulitis of left foot Arteriovenous fistula, acquired Cervical spondylosis with myelopathy Complicated migraines Migraine, unspecified, without mention of intractable migraine without mention of status migrainosus History of DVT (deep vein thrombosis) H/O traumatic brain injury Personal history of traumatic brain injury Mixed hyperlipidemia Obesity (BMI 30-39.9) Peripheral neuropathy Unspecified hereditary and idiopathic peripheral neuropathy Peripheral vascular disease Unspecified peripheral vascular disease S/P AKA (above knee amputation), right Pseudoseizures Type 2 diabetes mellitus with diabetic peripheral angiopathy without gangrene, without long-term current use of insulin Type 2 diabetes mellitus with foot ulcer, without long-term current use of insulin Primary hypertension Unspecified essential hypertension Hx of migraine headaches documented in this encounter Admitting Diagnoses Diagnosis Cellulitis Cellulitis and abscess of unspecified site documented in this encounter Administered Medications Inactive Administered Medications - up to 3 most recent administrations Medication Order MAR Action Action Date Dose Rate Site acetaminophen (TYLENOL) tablet 650 mg 650 mg, Oral, Every 4 Hours PRN, Mild Pain, Fever, Starting on 06/02/25 at 1454, If given for fever, use fever parameter: fever greater than 100.4 F Based on patient request - if ordered for moderate or severe pain, provider allows for administration of a medication prescribed for a lower pain scale. Do not exceed 4 grams of acetaminophen in a 24 hr period. Max dose of 2gm for AST/ALT greater than 120 units/L. If given for pain, use the following pain scale: Mild Pain = Pain Score of 1-3, CPOT 1-2 Moderate Pain = Pain Score of 4-6, CPOT 3-4 Severe Pain = Pain Score of 7-10, CPOT 5-8 Given 06/10/2025 3:37 AM EDT 650 mg Given 06/02/2025 4:25 PM EDT 650 mg apixaban (ELIQUIS) tablet 5 mg 5 mg, Oral, 2 Times Daily, First dose on 06/03/25 at 0900, Tablet may be crushed and suspended in 60 mL of water or D5W and immediately delivered via NG tube., Indications: Other - full anticoagulationIndications:Other - full anticoagulation Given 06/11/2025 9:14 AM EDT 5 mg Given 06/10/2025 10:04 PM EDT 5 mg Given 06/10/2025 8:29 AM EDT 5 mg baclofen (LIORESAL) tablet 10 mg 10 mg, Oral, Every 12 Hours Scheduled, First dose on 06/02/25 at 2100, Take with food if GI upset occurs. Given 06/11/2025 9:13 AM EDT 10 mg Given 06/10/2025 10:03 PM EDT 10 mg Given 06/10/2025 8:30 AM EDT 10 mg bisacodyl (DULCOLAX) EC tablet 5 mg 5 mg, Oral, Daily PRN, Constipation, Use if polyethylene glycol is ineffective, Starting on 06/02/25 at 1454, Use if no bowel movement after 12 hours. Swallow whole. Do not crush, split, or chew tablet. bisacodyl (DULCOLAX) suppository 10 mg 10 mg, Rectal, Daily PRN, Constipation, Use if bisacodyl oral is ineffective, Starting on 06/02/25 at 1454, Use if no bowel movement after 12 hours. Hold for diarrhea Calcium Replacement - Follow Nurse / BPA Driven Protocol Open Order & Select S Electrolyte Replacement Protocol Algorithm to View Details carvedilol (COREG) tablet 3.125 mg 3.125 mg, Oral, 2 Times Daily With Meals, First dose on 06/02/25 at 1800, Hold for SBP less than 100, DBP less than 60, or heart rate less than 50. If a dose is held, please contact the provider. Give with food. Given 06/11/2025 9:13 AM EDT 3.125 mg Given 06/10/2025 6:23 PM EDT 3.125 mg Given 06/10/2025 8:29 AM EDT 3.125 mg clopidogrel (PLAVIX) tablet 75 mg 75 mg, Oral, Daily, First dose on 06/03/25 at 0900 Given 06/11/2025 9:13 AM EDT 75 mg Given 06/10/2025 8:29 AM EDT 75 mg Given 06/09/2025 9:31 AM EDT 75 mg DAPTOmycin (CUBICIN) 550 mg in sodium chloride 0.9 % 50 mL IVPB 550 mg (rounded from 567.6 mg = 6 mg/kg 94.6 kg Adjusted weight), Intravenous, at 100 mL/hr, Administer over 30 Minutes, Every 24 Hours, First dose on 06/03/25 at 0900, For 241 hours, Caution: Look alike/sound alike drug alert. Refrigerate. Do not shake., Reason for Therapy: MRSA & documented vancomycin failure, Indications: Skin and Soft Tissue InfectionIndications:Skin and Soft Tissue Infection New Bag 06/11/2025 9:13 AM EDT 550 mg 100 mL/hr New Bag 06/10/2025 8:28 AM EDT 550 mg 100 mL/hr New Bag 06/09/2025 9:31 AM EDT 550 mg 100 mL/hr dextrose (D50W) (25 g/50 mL) IV injection 25 g 25 g, Intravenous, Every 15 Minutes PRN, Low Blood Sugar, Blood Sugar Less Than 70, Starting on 06/02/25 at 1604, Blood sugar less than 70; patient has IV access - Unresponsive, NPO or Unable To Safely Swallow dextrose (GLUTOSE) oral gel 15 g 15 g, Oral, Every 15 Minutes PRN, Low Blood Sugar, Blood sugar less than 70, Starting on 06/02/25 at 1604, BS<70, Patient Alert, Is not NPO, Can safely swallow. enoxaparin sodium (LOVENOX) syringe 40 mg 40 mg, Subcutaneous, Daily, First dose on 06/02/25 at 1700, Give subcutaneous in abdomen only. Do not massage site after injection., Indications: VTE ProphylaxisIndications:VTE Prophylaxis Given 06/02/2025 4:25 PM EDT 40 mg Left Lower Abdomen finasteride (PROSCAR) tablet 5 mg 5 mg, Oral, Daily, First dose on 06/03/25 at 0900, Group 2 ([facility]) Hazardous Drug - Reproductive Risk Only - See Handling Guide Given 06/11/2025 9:14 AM EDT 5 mg Given 06/10/2025 8:29 AM EDT 5 mg Given 06/09/2025 9:31 AM EDT 5 mg folic acid (FOLVITE) tablet 1 mg 1 mg, Oral, Daily, First dose on 06/03/25 at 0900 Given 06/11/2025 9:13 AM EDT 1 mg Given 06/10/2025 8:29 AM EDT 1 mg Given 06/09/2025 9:31 AM EDT 1 mg gabapentin (NEURONTIN) capsule 200 mg 200 mg, Oral, 3 times daily, First dose on 06/02/25 at 1600, (MAGGI) Given 06/11/2025 9:14 AM EDT 200 mg Given 06/10/2025 10:03 PM EDT 200 mg Given 06/10/2025 3:21 PM EDT 200 mg glucagon (GLUCAGEN) injection 1 mg 1 mg, Intramuscular, Every 15 Minutes PRN, Low Blood Sugar, Blood Glucose Less Than 70, Starting on 06/02/25 at 1604, Blood Glucose Less Than 70 - Patient Without IV Access - Unresponsive, NPO or Unable To Safely Swallow Reconstitute powder for injection by adding 1 mL of insurance verify rep-supplied sterile diluent or sterile water for injection to a vial containing 1 mg of the drug, to provide solutions containing 1 mg/mL. Shake vial gently to dissolve. insulin glargine (LANTUS, SEMGLEE) injection 25 Units 25 Units, Subcutaneous, Nightly, First dose on 06/02/25 at 2100, Do not hold basal insulin without an order. Consider requesting a dose edit, if needed. ([facility]) Given 06/10/2025 10:02 PM EDT 25 Units Left Arm Given 06/09/2025 9:05 PM EDT 25 Units Le ft Lower Abdomen Given 06/08/2025 9:14 PM EDT 25 Units Ri ght Lower Abdomen Insulin Lispro (humaLOG) injection 2-7 Units 2-7 Units, Subcutaneous, 4 Times Daily Before Meals & Nightly, First dose on 06/02/25 at 1730, Correction Insulin - Low Dose - Total Insulin Dose Less Than 40 units/day (Lean, Elderly or Renal Patients) Blood Glucose 150-199 mg/dL - 2 units Blood Glucose 200-249 mg/dL - 3 units Blood Glucose 250-299 mg/dL - 4 units Blood Glucose 300-349 mg/dL - 5 units Blood Glucose 350-400 mg/dL - 6 units Blood Glucose Greater Than 400 mg/dL - 7 units & Call Provider ([facility]) Caution: Look alike/sound alike drug alert([facility]) Given 06/10/2025 10:01 PM EDT 2 Units Right Arm Given 06/10/2025 1:33 PM EDT 2 Units Ri ght Lower Abdomen Given 06/09/2025 8:49 PM EDT 2 Units Le ft Lower Abdomen iopamidol (ISOVUE-300) 61 % injection 100 mL 100 mL, Intravenous, Once in Imaging, On 06/02/25 at 1218, For 1 dose Given 06/02/2025 12:02 PM EDT 90 mL lamoTRIgine (LaMICtal) tablet 100 mg 100 mg, Oral, Daily, First dose (after last modification) on 06/03/25 at 0900, Caution: Look alike/sound alike drug alert Given 06/11/2025 9:13 AM EDT 1 00 mg Given 06/10/2025 8:29 AM EDT 100 mg Given 06/09/2025 9:31 AM EDT 100 mg lamoTRIgine (LaMICtal) tablet 250 mg 250 mg, Oral, Nightly, First dose (after last modification) on 06/02/25 at 2100, Caution: Look alike/sound alike drug alert Given 06/10/2025 10:03 PM E DT 250 mg Given 06/09/2025 8:49 PM EDT 250 mg Given 06/08/2025 9:14 PM EDT 250 mg Linezolid (ZYVOX) 600 mg 300 mL 600 mg, Intravenous, at 300 mL/hr, Administer over 60 Minutes, Once, On 06/02/25 at 1357, For 1 dose, Protect from light. Do NOT refrigerate., Reason for Therapy: Empiric VRE coverage in patient with VRE history, Indications: EmpiricIndications:Empiric New 06/02/2025 3:00 PM EDT 600 mg 300 mL/hr Linezolid (ZYVOX) 600 mg 300 mL 600 mg, Intravenous, at 300 mL/hr, Administer over 60 Minutes, Every 12 Hours, First dose on Wed06/03/25 at 0400, For 7 days, Protect from light. Do NOT refrigerate., Reason for Therapy: Empiric VRE coverage in patient with VRE history, Indications: Skin and Soft Tissue Infection, Urinary Tract InfectionIndications:Skin and Soft Tissue Infection,Urinary Tract Infection New 06/03/2025 4:02 AM EDT 600 mg 300 mL/hr Magnesium Standard Dose Replacement - Follow Nurse / BPA Driven Protocol Open Order & Select [facility] Electrolyte Replacement Protocol Algorithm to View Details melatonin tablet 5 mg 5 mg, Oral, Nightly, First dose on Wed06/02/25 at 2100 Given 06/10/2025 10:03 PM EDT 5 mg Given 06/09/2025 8:48 PM EDT 5 mg Given 06/08/2025 9:14 PM EDT 5 mg meropenem (MERREM) 500 mg in sodium chloride 0.9 % 100 mL MBP 500 mg, Intravenous, Administer over 30 Minutes, Once, On Wed06/04/25 at 1415, For 1 dose 06/04/2025 3:05 PM EDT 500 mg meropenem (MERREM) 500 mg in sodium chloride 0.9 % 100 mL MBP 500 mg, Intravenous, Administer over 3 Hours, Every 6 Hours, First dose on Wed06/04/25 at 2100, For 7 days, Indications: Skin and Soft Tissue Infection, UTIIndications:Skin and Soft Tissue Infection,UTI New 06/06/2025 2:43 AM EDT 500 mg 06/05/2025 8:59 PM EDT 500 mg 06/05/2025 2:29 PM EDT 500 mg meropenem (MERREM) 500 mg in sodium chloride 0.9 % 100 mL MBP 500 mg, Intravenous, Administer over 3 Hours, Every 6 Hours, First dose on Wed06/06/25 at 0900, For 7 days, Indications: Skin and Soft Tissue Infection, Uncomplicated Cystitis, ESBLIndications:Skin and Soft Tissue Infection,Uncomplicated Cystitis,ESBL New Bag 06/11/2025 10:42 AM EDT 500 m g New Bag 06/11/2025 4:32 AM EDT 500 mg New Bag 06/10/2025 10:01 PM EDT 500 mg morphine injection 1 mg 1 mg, Intravenous, Every 4 Hours PRN, Severe Pain, Starting on 06/02/25 at 2342, For 5 days, Based on patient request - if ordered for moderate or severe pain, provider allows for administration of a medication prescribed for a lower pain scale. If given for pain, use the following pain scale: Mild Pain = Pain Score of 1-3, CPOT 1-2 Moderate Pain = Pain Score of 4-6, CPOT 3-4 Severe Pain = Pain Score of 7-10, CPOT 5-8 Given 06/06/2025 5:18 AM EDT 1 mg Given 06/05/2025 9:02 PM EDT 1 mg Given 06/05/2025 12:52 PM EDT 1 mg morphine injection 1 mg 1 mg, Intravenous, Every 4 Hours PRN, Severe Pain, Starting on 06/08/25 at 1120, For 5 days, Based on patient request - if ordered for moderate or severe pain, provider allows for administration of a medication prescribed for a lower pain scale. If given for pain, use the following pain scale: Mild Pain = Pain Score of 1-3, CPOT 1-2 Moderate Pain = Pain Score of 4-6, CPOT 3-4 Severe Pain = Pain Score of 7-10, CPOT 5-8 Given 06/11/2025 4:31 AM EDT 1 mg Given 06/10/2025 11:11 PM EDT 1 mg Given 06/10/2025 6:28 PM EDT 1 mg multivitamin with minerals 1 tablet 1 tablet, Oral, Daily, First dose on 06/03/25 at 0900, ([facility]) Given 06/11/2025 9:13 AM EDT 1 tablet Given 06/10/2025 8:29 AM EDT 1 tablet Given 06/09/2025 9:31 AM EDT 1 tablet nitroglycerin (NITROSTAT) SL tablet 0.4 mg 0.4 mg, Sublingual, Every 5 Minutes PRN, Chest Pain, Starting on 06/02/25 at 1454, If Pain Unrelieved After 3 Doses Notify MD May administer up to 3 doses per episode. Hold if SBP less than 100. ondansetron (ZOFRAN) injection 4 mg 4 mg, Intravenous, Every 6 Hours PRN, Nausea, Vomiting, Starting on 06/04/25 at 0932, If BOTH ondansetron (ZOFRAN) and promethazine (PHENERGAN) are ordered use ondansetron first and THEN promethazine IF ondansetron is ineffective. Given 06/07/2025 9:14 AM EDT 4 mg Given 06/06/2025 9:02 AM EDT 4 mg Given 06/05/2025 5:43 PM EDT 4 mg ondansetron ODT (ZOFRAN-ODT) disintegrating tablet 4 mg 4 mg, Oral, Every 6 Hours PRN, Nausea, Vomiting, Starting on 06/02/25 at 1454, If BOTH ondansetron (ZOFRAN) and promethazine (PHENERGAN) are ordered use ondansetron first and THEN promethazine IF ondansetron is ineffective. Place on tongue and allow to dissolve. Given 06/02/2025 4:25 PM EDT 4 mg ondansetron ODT (ZOFRAN-ODT) disintegrating tablet 4 mg 4 mg, Oral, Every 4 Hours PRN, Nausea, Vomiting, Starting on 06/04/25 at 0932, If BOTH ondansetron (ZOFRAN) and promethazine (PHENERGAN) are ordered use ondansetron first and THEN promethazine IF ondansetron is ineffective. Place on tongue and allow to dissolve. Given 06/09/2025 2:29 PM EDT 4 mg oxyCODONE (ROXICODONE) immediate release tablet 5 mg 5 mg, Oral, Every 4 Hours PRN, Moderate Pain, Starting on 06/03/25 at 1222, For 5 days, Based on patient request - if ordered for moderate or severe pain, provider allows for administration of a medication prescribed for a lower pain scale. (MAGGI) If given for pain, use the following pain scale: Mild Pain = Pain Score of 1-3, CPOT 1-2 Moderate Pain = Pain Score of 4-6, CPOT 3-4 Severe Pain = Pain Score of 7-10, CPOT 5-8 Given 06/08/2025 11:10 AM EDT 5 mg Given 06/08/2025 1:38 AM EDT 5 mg Given 06/07/2025 4:11 PM EDT 5 mg oxyCODONE (ROXICODONE) immediate release tablet 5 mg 5 mg, Oral, Every 4 Hours PRN, Moderate Pain, Starting on Wed06/08/25 at 1121, For 5 days, Based on patient request - if ordered for moderate or severe pain, provider allows for administration of a medication prescribed for a lower pain scale. (MAGGI) If given for pain, use the following pain scale: Mild Pain = Pain Score of 1-3, CPOT 1-2 Moderate Pain = Pain Score of 4-6, CPOT 3-4 Severe Pain = Pain Score of 7-10, CPOT 5-8 Given 06/11/2025 3:41 PM EDT 5 mg Given 06/11/2025 9:14 AM EDT 5 mg Given 06/10/2025 2:59 AM EDT 5 mg pantoprazole (PROTONIX) EC tablet 40 mg 40 mg, Oral, 2 Times Daily, First dose on 06/02/25 at 2100, Do not crush or chew the capsules or tablets. The drug may not work as designed if the capsule or tablet is crushed or chewed. Swallow whole. Swallow whole; do not crush, split, or chew. Given 06/11/2025 9:13 AM EDT 40 mg Given 06/10/2025 10:03 PM EDT 40 mg Given 06/10/2025 8:29 AM EDT 40 mg Phosphorus Replacement - Follow Nurse / BPA Driven Protocol Open Order & Select S Electrolyte Replacement Protocol Algorithm to View Details piperacillin-tazobactam (ZOSYN) 3.375 g IVPB in 100 mL NS MBP (CD) 3.375 g, Intravenous, Administer over 30 Minutes, Once, On 06/02/25 at 1354, For 1 dose New Bag 06/02/2025 1:49 PM EDT 3.375 g piperacillin-tazobactam (ZOSYN) 4.5 g IVPB in 100 mL NS MBP (CD) 4.5 g, Intravenous, Administer over 4 Hours, Every 8 Hours, First dose on 06/02/25 at 2000, For 7 days, Indications: Skin and Soft Tissue InfectionIndications:Skin and Soft Tissue Infection New Bag 06/04/2025 12:48 PM EDT 4.5 g New Bag 06/04/2025 4:24 AM EDT 4.5 g New Bag 06/03/2025 9:10 PM EDT 4.5 g polyethylene glycol (MIRALAX) packet 17 g 17 g, Oral, Daily PRN, Constipation, Use if senna-docusate is ineffective, Starting on 06/02/25 at 1454, Use if no bowel movement after 12 hours. Mix in 6-8 ounces of water. Use 4-8 ounces of water, tea, or juice for each 17 gram dose. Potassium Replacement - Follow Nurse / BPA Driven Protocol Open Order & Select [facility] Electrolyte Replacement Protocol Algorithm to View Details sennosides-docusate (PERICOLACE) 8.6-50 MG per tablet 2 tablet 2 tablet, Oral, 2 Times Daily PRN, Constipation, Starting on 06/02/25 at 1454, Start bowel management regimen if patient has not had a bowel movement after 12 hours. sodium chloride 0.9 % bolus 1,000 mL 1,000 mL, Intravenous, at 2,000 mL/hr, Administer over 0.5 Hours, Once, On 06/02/25 at 1203, For 1 dose New Bag 06/02/2025 1:50 PM EDT 1,000 mL 2000 mL/hr sodium chloride 0.9 % flush 10 mL 10 mL, Intravenous, Every 12 Hours Scheduled, First dose on 06/02/25 at 2100 Given 06/11/2025 10:41 AM EDT 10 mL Given 06/10/2025 10:04 PM EDT 10 mL Given 06/10/2025 8:31 AM EDT 10 mL sodium chloride 0.9 % flush 10 mL 10 mL, Intravenous, As Needed, Line Care, Starting on 06/02/25 at 1454 Given 06/05/2025 5:46 PM EDT 10 mL Given 06/04/2025 12:21 PM EDT 10 mL Given 06/03/2025 11:56 AM EDT 10 mL sodium chloride 0.9 % infusion 40 mL 40 mL, Intravenous, As Needed, Line Care, Starting on 06/02/25 at 1454, Following administration of an IV intermittent medication, flush line with 40mL NS at 100mL/hr. documented in this encounter Active and Recently Administered Medications Times are shown in EDT. Scheduled Medication Order 06/09/2025 06/10/2025 06/11/2025 apixaban (ELIQUIS) tablet 5 mg 5 mg, Oral, 2 Times Daily, First dose on 06/03/25 at 0900, Tablet may be crushed and suspended in 60 mL of water or D5W and immediately delivered via NG tube., Indications: Other - full anticoagulation 0931 (Given - Provider: Carmenza Bishop RN)2047 (Given - Provider: Joann Byrd, JESSEE) 08 (Given - Provider: Orin Silva RN)2203 (Given - Provider: Arnoldo Reeves RN) 0914 (Given - Provider: Orin Silva RN) baclofen (LIORESAL) tablet 10 mg 10 mg, Oral, Every 12 Hours Scheduled, First dose on 06/02/25 at 2100, Take with food if GI upset occurs. 0931 (Given - Provider: Carmenza Bishop RN)2047 (Given - Provider: Joann Byrd RN) 0830 (Given - Provider: Orin Silva, JESSEE)2202 (Given - Provider: Arnoldo Reeves, JESSEE) 09 (Given - Provider: Orin Silva RN) carvedilol (COREG) tablet 3.125 mg 3.125 mg, Oral, 2 Times Daily With Meals, First dose on 06/02/25 at 1800, Hold for SBP less than 100, DBP less than 60, or heart rate less than 50. If a dose is held, please contact the provider. Give with food. 0931 (Given - Provider: Carmenza Bishop RN)1712 (Given - Provider: Carmenza Bishop RN) 08 (Given - Provider: Orin Silva RN)182 (Given - Provider: Carmenza Bishop RN) 09 (Given - Provider: Orin Silva RN) clopidogrel (PLAVIX) tablet 75 mg 75 mg, Oral, Daily, First dose on 06/03/25 at 0900 0931 (Given - Provider: Carmenza Bishop RN) 0829 (Given - Provider: Orin Silva RN) 0913 (Given - Provider: Orin Silva RN) DAPTOmycin (CUBICIN) 550 mg in sodium chloride 0.9 % 50 mL IVPB 550 mg (rounded from 567.6 mg = 6 mg/kg 94.6 kg Adjusted weight), Intravenous, at 100 mL/hr, Administer over 30 Minutes, Every 24 Hours, First dose on 06/03/25 at 0900, For 241 hours, Caution: Look alike/sound alike drug alert. Refrigerate. Do not shake., Reason for Therapy: MRSA & documented vancomycin failure, Indications: Skin and Soft Tissue Infection 0931 (New Bag - Provider: Carmenza Bishop RN) 0828 (New Bag - Provider: Orin Silva RN) 0913 (New Bag - Provider: Orin Silva RN)0953 (Stopped - Provider: Orin Silva RN) finasteride (PROSCAR) tablet 5 mg 5 mg, Oral, Daily, First dose on 06/03/25 at 0900, Group 2 ([facility]) Hazardous Drug - Reproductive Risk Only - See Handling Guide 0931 (Given - Provider: Carmenza Bishop RN) 0829 (Given - Provider: Orin Silva RN) 0914 (Given - Provider: Orin Silva RN) folic acid (FOLVITE) tablet 1 mg 1 mg, Oral, Daily, First dose on 06/03/25 at 0900 0931 (Given - Provider: Carmenza Bishop RN) 0829 (Given - Provider: Orin Silva RN) 0913 (Given - Provider: Orin Silva RN) furosemide (LASIX) tablet 40 mg 40 mg, Oral, Daily, First dose on 06/03/25 at 0900, On hold since 06/02/2025 at 1612 until manually unheld 0900 (Dose Auto Held - Provider: Luz Denson MD) 0900 (Dose Auto Held - Provider: Luz Denson MD) 0900 (Dose Auto Held - Provider: Luz Denson MD)1746 (Unheld by provider - Provider: Automatic Discharge Provider) gabapentin (NEURONTIN) capsule 200 mg 200 mg, Oral, 3 times daily, First dose on 06/02/25 at 1600, (MAGGI) 0931 (Given - Provider: Carmenza Bishop RN)1425 (Given - Provider: Carmenza Bishop RN)2048 (Given - Provider: Joann Byrd RN) 0829 (Given - Provider: Orin Silva RN)1521 (Given - Provider: Carmenza Bishop RN)220 (Given - Provider: Arnoldo Reeves RN) 0914 (Given - Provider: Orin Silva RN)1500 (Due) insulin glargine (LANTUS, SEMGLEE) injection 25 Units 25 Units, Subcutaneous, Nightly, First dose on 06/02/25 at 2100, Do not hold basal insulin without an order. Consider requesting a dose edit, if needed. ([facility]) 2104 (Given - Provider: Joann Byrd RN) 2201 (Given - Provider: Arnoldo Reeves RN) Insulin Lispro (humaLOG) injection 2-7 Units 2-7 Units, Subcutaneous, 4 Times Daily Before Meals & Nightly, First dose on 06/02/25 at 1730, Correction Insulin - Low Dose - Total Insulin Dose Less Than 40 units/day (Lean, Elderly or Renal Patients) Blood Glucose 150-199 mg/dL - 2 units Blood Glucose 200-249 mg/dL - 3 units Blood Glucose 250-299 mg/dL - 4 units Blood Glucose 300-349 mg/dL - 5 units Blood Glucose 350-400 mg/dL - 6 units Blood Glucose Greater Than 400 mg/dL - 7 units & Call Provider ([facility]) Caution: Look alike/sound alike drug alert([facility]) 0820 (Not Given - Provider: Carmenza Bishop RN - Reason: Order parameters not met)1202 (Not Given - Provider: Carmenza Bishop RN - Reason: Order parameters not met)1732 (Given - Provider: Carmenza Bishop RN)2049 (Given - Provider: Joann Byrd RN) 0803 (Not Given - Provider: Orin Silva RN - Reason: Order parameters not met)1333 (Given - Provider: Carmenza Bishop RN)1731 (Not Given - Provider: Carmenza Bishop RN - Reason: Order parameters not met)220 (Given - Provider: Arnoldo Reeves RN) 0741 (Not Given - Provider: Orin Silva RN - Reason: Order parameters not met)1137 (Not Given - Provider: Yanelis Vides RN - Reason: Order parameters not met) lamoTRIgine (LaMICtal) tablet 100 mg 100 mg, Oral, Daily, First dose (after last modification) on Wed06/03/25 at 0900, Caution: Look alike/sound alike drug alert 0931 (Given - Provider: Carmenza Bishop RN) 0829 (Given - Provider: Orin Silva RN) 0913 (Given - Provider: Orin Silva RN) lamoTRIgine (LaMICtal) tablet 250 mg 250 mg, Oral, Nightly, First dose (after last modification) on 06/02/25 at 2100, Caution: Look alike/sound alike drug alert 2048 (Given - Provider: Joann Byrd RN) 2202 (Given - Provider: Arnoldo Reeves RN) melatonin tablet 5 mg 5 mg, Oral, Nightly, First dose on 06/02/25 at 2100 2047 (Given - Provider: Joann Byrd RN) 2202 (Given - Provider: Arnoldo Reeves RN) meropenem (MERREM) 500 mg in sodium chloride 0.9 % 100 mL MBP 500 mg, Intravenous, Administer over 3 Hours, Every 6 Hours, First dose on Wed06/06/25 at 0900, For 7 days, Indications: Skin and Soft Tissue Infection, Uncomplicated Cystitis, ESBL 0330 (New Bag - Provider: Staci Mckeon RN)0934 (New Bag - Provider: Carmenza Bishop RN)1425 (New Bag - Provider: Carmenza Bishop, JESSEE)205 (New Bag - Provider: Joann Byrd RN) 0300 (New Bag - Provider: Joann Byrd RN)1048 (New Bag - Provider: Carmenza Bishop RN)1521 (New Bag - Provider: Carmenza Bishop RN)220 (New Bag - Provider: Arnoldo Reeves RN) 0432 (New Bag - Provider: Arnoldo Reeves RN)0700 (Stopped - Provider: Orin Silva RN)1042 (New Bag - Provider: Yanelis Vides RN)1500 (Due) multivitamin with minerals 1 tablet 1 tablet, Oral, Daily, First dose on Wed06/03/25 at 0900, ([facility]) 0931 (Given - Provider: Carmenza Bishop RN) 08 (Given - Provider: Orin Silva, JESSEE) 09 (Given - Provider: Orin Silva RN) pantoprazole (PROTONIX) EC tablet 40 mg 40 mg, Oral, 2 Times Daily, First dose on Wed06/02/25 at 2100, Do not crush or chew the capsules or tablets. The drug may not work as designed if the capsule or tablet is crushed or chewed. Swallow whole. Swallow whole; do not crush, split, or chew. 0931 (Given - Provider: Carmenza Bishop RN)2047 (Given - Provider: Joann Byrd RN) 08 (Given - Provider: Orin Silva RN)2202 (Given - Provider: Arnoldo Reeves RN) 09 (Given - Provider: Orin Silva RN) sacubitril-valsartan (ENTRESTO) 24-26 MG tablet 1 tablet 1 tablet, Oral, 2 Times Daily, First dose on Wed06/08/25 at 1300, Is this new therapy for the patient? No, On hold since Wed06/08/2025 at 1208 until manually unheld 0900 (Dose Auto Held)2100 (Dose Auto Held) 0900 (Dose Auto Held)2100 (Dose Auto Held) 0900 (Dose Auto Held)1746 (Unheld by provider - Provider: Automatic Discharge Provider) sodium chloride 0.9 % flush 10 mL 10 mL, Intravenous, Every 12 Hours Scheduled, First dose on 06/02/25 at 2100 0944 (Given - Provider: Carmenza Bishop RN)2103 (Given - Provider: Joann Byrd, JESSEE) 08 (Given - Provider: Orin Silva RN)2203 (Given - Provider: Arnoldo Reeves, RN) 1041 (Given - Provider: Yanelis Vides RN) PRN Medication Order 06/09/2025 06/10/2025 06/11/2025 acetaminophen (TYLENOL) tablet 650 mg 650 mg, Oral, Every 4 Hours PRN, Mild Pain, Fever, Starting on 06/02/25 at 1454, If given for fever, use fever parameter: fever greater than 100.4 F Based on patient request - if ordered for moderate or severe pain, provider allows for administration of a medication prescribed for a lower pain scale. Do not exceed 4 grams of acetaminophen in a 24 hr period. Max dose of 2gm for AST/ALT greater than 120 units/L. If given for pain, use the following pain scale: Mild Pain = Pain Score of 1-3, CPOT 1-2 Moderate Pain = Pain Score of 4-6, CPOT 3-4 Severe Pain = Pain Score of 7-10, CPOT 5-8 0337 (Given - Provider: Joann Byrd RN) bisacodyl (DULCOLAX) EC tablet 5 mg(Linked Group 1) 5 mg, Oral, Daily PRN, Constipation, Use if polyethylene glycol is ineffective, Starting on 06/02/25 at 1454, Use if no bowel movement after 12 hours. Swallow whole. Do not crush, split, or chew tablet. bisacodyl (DULCOLAX) suppository 10 mg(Linked Group 1) 10 mg, Rectal, Daily PRN, Constipation, Use if bisacodyl oral is ineffective, Starting on 06/02/25 at 1454, Use if no bowel movement after 12 hours. Hold for diarrhea Calcium Replacement - Follow Nurse / BPA Driven Protocol Open Order & Select [facility] Electrolyte Replacement Protocol Algorithm to View Details dextrose (D50W) (25 g/50 mL) IV injection 25 g 25 g, Intravenous, Every 15 Minutes PRN, Low Blood Sugar, Blood Sugar Less Than 70, Starting on 06/02/25 at 1604, Blood sugar less than 70; patient has IV access - Unresponsive, NPO or Unable To Safely Swallow dextrose (GLUTOSE) oral gel 15 g 15 g, Oral, Every 15 Minutes PRN, Low Blood Sugar, Blood sugar less than 70, Starting on 06/02/25 at 1604, BS<70, Patient Alert, Is not NPO, Can safely swallow. glucagon (GLUCAGEN) injection 1 mg 1 mg, Intramuscular, Every 15 Minutes PRN, Low Blood Sugar, Blood Glucose Less Than 70, Starting on 06/02/25 at 1604, Blood Glucose Less Than 70 - Patient Without IV Access - Unresponsive, NPO or Unable To Safely Swallow Reconstitute powder for injection by adding 1 mL of insurance verify rep-supplied sterile diluent or sterile water for injection to a vial containing 1 mg of the drug, to provide solutions containing 1 mg/mL. Shake vial gently to dissolve. Magnesium Standard Dose Replacement - Follow Nurse / BPA Driven Protocol Open Order & Select S Electrolyte Replacement Protocol Algorithm to View Details morphine injection 1 mg 1 mg, Intravenous, Every 4 Hours PRN, Severe Pain, Starting on Wed06/08/25 at 1120, For 5 days, Based on patient request - if ordered for moderate or severe pain, provider allows for administration of a medication prescribed for a lower pain scale. If given for pain, use the following pain scale: Mild Pain = Pain Score of 1-3, CPOT 1-2 Moderate Pain = Pain Score of 4-6, CPOT 3-4 Severe Pain = Pain Score of 7-10, CPOT 5-8 0030 (Given - Provider: Staci Mckeon RN)0944 (Given - Provider: Carmenza Bishop, JESSEE)1732 (Given - Provider: Carmenza Bishop RN)2225 (Given - Provider: Joann Byrd, JESESE) 0829 (Given - Provider: Orin Silva, JESSEE)1828 (Given - Provider: Carmenza Bishop, JESSEE)2311 (Given - Provider: Alicia Martinez, JESSEE) 0431 (Given - Provider: Arnoldo Reeves RN) nitroglycerin (NITROSTAT) SL tablet 0.4 mg 0.4 mg, Sublingual, Every 5 Minutes PRN, Chest Pain, Starting on 06/02/25 at 1454, If Pain Unrelieved After 3 Doses Notify MD May administer up to 3 doses per episode. Hold if SBP less than 100. ondansetron (ZOFRAN) injection 4 mg(Linked Group 2) 4 mg, Intravenous, Every 6 Hours PRN, Nausea, Vomiting, Starting on 06/04/25 at 0932, If BOTH ondansetron (ZOFRAN) and promethazine (PHENERGAN) are ordered use ondansetron first and THEN promethazine IF ondansetron is ineffective. 1429 (Not Given: See Alt - Provider: Carmenza Bishop RN) ondansetron ODT (ZOFRAN-ODT) disintegrating tablet 4 mg(Linked Group 2) 4 mg, Oral, Every 4 Hours PRN, Nausea, Vomiting, Starting on 06/04/25 at 0932, If BOTH ondansetron (ZOFRAN) and promethazine (PHENERGAN) are ordered use ondansetron first and THEN promethazine IF ondansetron is ineffective. Place on tongue and allow to dissolve. 1429 (Given - Provider: Carmenza Bishop RN) oxyCODONE (ROXICODONE) immediate release tablet 5 mg 5 mg, Oral, Every 4 Hours PRN, Moderate Pain, Starting on Wed06/08/25 at 1121, For 5 days, Based on patient request - if ordered for moderate or severe pain, provider allows for administration of a medication prescribed for a lower pain scale. (MAGGI) If given for pain, use the following pain scale: Mild Pain = Pain Score of 1-3, CPOT 1-2 Moderate Pain = Pain Score of 4-6, CPOT 3-4 Severe Pain = Pain Score of 7-10, CPOT 5-8 0654 (Given - Provider: Staci Mckeon RN)2105 (Given - Provider: Joann Byrd RN) 0259 (Given - Provider: Joann Byrd RN) 0914 (Given - Provider: Orin Silva, JESSEE)1541 (Given - Provider: Orin Silva RN) Phosphorus Replacement - Follow Nurse / BPA Driven Protocol Open Order & Select S Electrolyte Replacement Protocol Algorithm to View Details polyethylene glycol (MIRALAX) packet 17 g(Linked Group 1) 17 g, Oral, Daily PRN, Constipation, Use if senna-docusate is ineffective, Starting on 06/02/25 at 1454, Use if no bowel movement after 12 hours. Mix in 6-8 ounces of water. Use 4-8 ounces of water, tea, or juice for each 17 gram dose. Potassium Replacement - Follow Nurse / BPA Driven Protocol Open Order & Select S Electrolyte Replacement Protocol Algorithm to View Details sennosides-docusate (PERICOLACE) 8.6-50 MG per tablet 2 tablet(Linked Group 1) 2 tablet, Oral, 2 Times Daily PRN, Constipation, Starting on 06/02/25 at 1454, Start bowel management regimen if patient has not had a bowel movement after 12 hours. sodium chloride 0.9 % flush 10 mL 10 mL, Intravenous, As Needed, Line Care, Starting on 06/02/25 at 1454 sodium chloride 0.9 % infusion 40 mL 40 mL, Intravenous, As Needed, Line Care, Starting on 06/02/25 at 1454, Following administration of an IV intermittent medication, flush line with 40mL NS at 100mL/hr. Linked Groups Order Group 1: sennosides-docusate (PERICOLACE) 8.6-50 MG per tablet 2 tabletJump to med 2 tablet, Oral, 2 Times Daily PRN, Constipation, Starting on 06/02/25 at 1454, Start bowel management regimen if patient has not had a bowel movement after 12 hours. And polyethylene glycol (MIRALAX) packet 17 gJump to med 17 g, Oral, Daily PRN, Constipation, Use if senna-docusate is ineffective, Starting on 06/02/25 at 1454, Use if no bowel movement after 12 hours. Mix in 6-8 ounces of water. Use 4-8 ounces of water, tea, or juice for each 17 gram dose. And bisacodyl (DULCOLAX) EC tablet 5 mgJump to med 5 mg, Oral, Daily PRN, Constipation, Use if polyethylene glycol is ineffective, Starting on 06/02/25 at 1454, Use if no bowel movement after 12 hours. Swallow whole. Do not crush, split, or chew tablet. And bisacodyl (DULCOLAX) suppository 10 mgJump to med 10 mg, Rectal, Daily PRN, Constipation, Use if bisacodyl oral is ineffective, Starting on 06/02/25 at 1454, Use if no bowel movement after 12 hours. Hold for diarrhea Group 2: ondansetron ODT (ZOFRAN-ODT) disintegrating tablet 4 mgJump to med 4 mg, Oral, Every 4 Hours PRN, Nausea, Vomiting, Starting on 06/04/25 at 0932, If BOTH ondansetron (ZOFRAN) and promethazine (PHENERGAN) are ordered use ondansetron first and THEN promethazine IF ondansetron is ineffective. Place on tongue and allow to dissolve. Or ondansetron (ZOFRAN) injection 4 mgJump to med 4 mg, Intravenous, Every 6 Hours PRN, Nausea, Vomiting, Starting on 06/04/25 at 0932, If BOTH ondansetron (ZOFRAN) and promethazine (PHENERGAN) are ordered use ondansetron first and THEN promethazine IF ondansetron is ineffective. 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
--- OUTSIDE RECORDS SUMMARY | 2025-06-25 17:05 | XMS_ITS | Encounter Summary ---
[facility] Address [address] [place] [address] Care Team Providers Care String Cutter Name Role Phone Gustavo Mehta MD Primary Care Provider + [phone] Reason for Referral * Home Health (Routine) - Pending Review Specialty Diagnoses / Procedures Referred By Contact Referred To Contact Home Health Services Diagnoses Cellulitis of left lower extremity Procedures GA OFFICE/OUTPATIENT NEW MODERATE MDM 45 MINUTES Carolina Sargent II, DO [address] [place] [address] Phone: tel: fax: Referral ID Status Reason Start Date Expiration Date Visits Requested Visits Authorized [id number] Pending Review Specialty Services Required 10/31/2026 999 999 Reason for Visit * Reason Comments Wound Infection * Auth/Cert Specialty Diagnoses / Procedures Referred By Contac t Referred To Contact Diagnoses Cellulitis Referral ID Status Reason Start Date Expiration Date Visits Re quested Visits Authorized [id number] 1 1 Encounter Details Date Type Department Care Team (Late st Contact Info) Description 06/25/2025 6:05 PM EDT - 08/02/2025 2:14 PM EST Hospital Encounter [facility] [address]B [address] [place] [address] Vaughn Hartman MD [address] [facility] [place] [address] Steve Kinney MD [address] [facility] 4Th [place] [address] Hiro Santillan MD [address] [facility] [address] [place] [address] Kris Boston, DO [address] [facility] [address] [place] [address] Gigi Alcantara MD [address] [facility] [address] [place] [address] Ana Reynolds, DO [address] [place] [address] Mart Ridley MD [address] [facility] [address] [place] [address] Carolina Sargent II, DO [address] [place] [address] Cellulitis of left lower extremity (Primary Dx); Hematuria, unspecified type; Urinary tract infection associated with indwelling urethral catheter, initial encounter; Diarrhea, unspecified type; PAD (peripheral artery disease); Wound infection; Critical limb ischemia of left lower extremity Discharge Disposition: Home or Self Care Social History Tobacco Use Types Packs/Day Years Used Date Smoking Tobacco: Never Passive Smoke Exposure: Never Smokeless Tobacco: Never Alcohol Use Standard Drinks/Week Comments Never 0 (1 standard drink = 0.6 oz pur e alcohol) PHQ-2 Answer Date Recorded Retired PHQ-9: Brief Depression Severity Measure Score 2 08/09/2023 PRAPARE - Transportation Answer Date Re corded In the past 12 months, has l ack of transportation kept you from medical appointments or from getting medications? No 08/14 In the past 12 months, has l ack of transportation kept you from meetings, work, or from getting things needed for daily living? No 09/01/2024 AUDIT-C Answer Date Recorded Q1: How often do you have a drink containing alcohol? Never 06/26/2025 Q2: How many drinks containi ng alcohol do you have on a typical day when you are drinking? Patient does not drink Q3: How often do you have si x or more drinks on one occasion? Never 06/26/2025 Overall Financial Resource Strain (CARDIA) Answe r Date Recorded How hard is it for you to pa y for the very basics like food, housing, medical care, and heating? Not hard at all 06/26/2025 [facility] - Occupational Stress Questionnaire Answer Date Recorded Do you feel stress - tense, restless, nervous, or anxious, or unable to sleep at night because your mind is troubled all the time - these days? Only a little 06/26/2025 Exercise Vital Sign Answer Date Recorde d On average, how many days pe r week do you engage in moderate to strenuous exercise (like a brisk walk)? 0 days 06/26/2025 On average, how many minutes do you engage in exercise at this level? 0 min 06/26/2025 Hunger Vital Sign Answer Date Recorded Within the past 12 months, y ou worried that your food would run out before you got the money to buy more. Never true 06/26/20 25 Within the past 12 months, t he food you bought just didn't last and you didn't have money to get more. Never true 06/26/2025 PRAPARE - Transportation Answer Date Re corded In the past 12 months, has l ack of transportation kept you from medical appointments or from getting medications? No 06/13 In the past 12 months, has l ack of transportation kept you from meetings, work, or from getting things needed for daily living? No 06/26/2025 [facility] Utilities Answer Date Recorded In the past 12 months has th e Reel[employer], gas, oil, or water company threatened to shut off services in your home? No 06/26/2025 Abuse Screen Answer Date Recorded Feels Unsafe at Home or Work/School no 06/26/2025 Feels Threatened by Someone no 06/13 Does Anyone Try to Keep You From Having Contact with Others or Doing Things Outside Your Home? no 06/26/2025 Physical Signs of Abuse Present no 06/26/2025 Housing Stability Answer Date Recorded Current Living Arrangements home 06/13 Potentially Unsafe Housing Conditions none 06/26/2025 Family and Community Support Answer Antoine e Recorded If for any reason you need h elp with day-to-day activities such as bathing, preparing meals, shopping, managing finances, etc., do you get the help you need? I get all the help I need 06/26/2025 How often do you feel lonely or isolated from those around you? Never 06/26/2025 Employment Answer Date Recorded Do you want help finding or keeping work or a job? I do not need or want help 06/26/2025 Disabilities Answer Date Recorded Difficulty Concentrating, Remembering or Making Decisions no 06/26/2025 Difficulty Managing Errands Independently yes 06/26/2025 Education Answer Date Recorded Do you want help with school or training? For example, starting or completing job training or getting a high school diploma, GED or equivalent No 06/26/2025 Preferred Language Citizen Of [place] 06/26/2025 PHQ-2 Answer Date Recorded Patient Health Questionnaire-2 Score 1 06/26/2025 Sex and Gender Information Value Date Recorded Sex Assigned at Not on file Legal Sex Male 1:18 PM EDT Gender Identity Not on file Sexual Orientation Not on file documented as of this encounter Last Filed Vital Signs Vital Sign Reading Time Taken Comments Blood Pressure 160/74 08/02/2025 8:22 AM EST Pulse 94 08/02/2025 8:22 AM EST Temperature 36.1 C (97 F) 08/02/2025 7:30 AM EST Respiratory Rate 18 08/02/2025 7:30 AM EST Oxygen Saturation 96% 08/02/2025 8:22 AM EST Inhaled Oxygen Concentration - - Weight 116 kg (256 lb) 07/24/2025 5:00 AM EST Height 182.9 cm (6') 07/03/2025 11:35 AM EDT Body Mass Index 34.72 07/03/2025 11:35 AM EDT documented in this encounter Functional Status * AUDIT-C Score Answer Date of Assessment Author 0 06/26/2025 11:27 AM EDT Janice Reilly RN * Question Answer Date of Assessment Author Q1: How often do you have a drink containing alcohol? Never 06/26/2025 11:27 AM Monalisa Logan RN Q2: How many drinks containing alcohol do you have on a typical day when you are drinking? Patient does not drink 06/26/2025 11:27 AM Monalisa Logan RN Q3: How often do you have six or more drinks on one occasion? Never 06/26/2025 11:27 AM EDT Monalisa Reilly RN * Over the past 2 weeks, how often have you been bothered by any of the following problems? Question Answer Date of Assessment Author Patient Health Questionnaire -2 Score 1 06/26/2025 11:27 AM Monalisa Logan RN * Question Answer Date of Assessment Author 1. Wish to be (Past 1 Month) No 06/26/2025 12:57 AM EDT Kristan Morgan RN 2. Non-Specific Active Suici jaylon Thoughts (Past 1 Month) No 06/26/2025 12:57 AM EDT Anton Morgan RN * Calculated C-SSRS Risk Score (Lifetime/Recent) Answer Date of Assessment Author No Risk Indicated 06/26/2025 12:57 AM EDT Kristan Burkett ms, RN * [place] Suicide Severity Rating Scale (Screener/Recent Self-Report) Question Answer Date of Assessment Author 6. Suicidal Behavior (Lifetime) No 12:57 AM Kristan Jacobson RN * Question Answer Date of Assessment Author Little interest or pleasure in doing things Not at all 06/26/2025 11:27 AM Anna Logan RN Feeling down, depressed, or hopeless Several days 06/26/2025 11:27 AM Monalisa Logan RN documented as of this encounter Discharge Summaries * Nika Barfield RN - 08/01/2025 12:00 PM EST Images from the original note were not included. Trung Pool (70 y.o. Male) Nika Barfield RN [phone] Date of 1955 Social Security Number [id number] Address [address] 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), ESBL (06/06/25), C.difficile (06/26/25) Code Status: No CPR Ht: 182.9 cm (72 ) Wt: 116 kg (256 lb) Admission Cmt: None Principal Problem: Wound infection [T14.8XXA,L08.9] Active Insurance as of 06/25/2025 Primary Coverage Payor Plan Insurance Group Employer/Plan Group [employer] [place] MED[employer] REPLACEMENT [employer]LL[employer] MEDICARE ADVANTAGE PPO Payor Plan Address Payor Plan Phone Number Payor Plan Fax Number Effective Dates [address] [address] 01/12/2024 - None Entered [facility] [address] Subscriber Name Subscriber Date Member ID TRUNG POOL 1955 [id number] Emergency Contacts Brand Communications Manager (Rel.) Home Phone Work Phone Mobile Phone Zhane Salazar (Sister) [phone] -- [phone] [facility] [address] Date: Aug 01, 2025 Ambulatory Referral to Home Health Patient: Trung Pool [address] [facility] [address] : 1955 SSN: [id number] Sex: M INSURANCE PAYOR PLAN GROUP # SUBSCRIBER ID Primary: [employer] [place] [employer]ARE REPLACEMENT [id number] Referring Provider Information: CAROLINA SARGENT II Referral Information: # Visits: 999 Referral Type: Home Health [42] Urgency: Routine Referral Reason: Specialty Services Required Start Date: Aug 01, 2025 End Date: To be determined by Insurer Diagnosis: Cellulitis of left lower extremity (L03.116) Refer to Dept: Refer to Provider: Refer to Provider Phone: Refer to Facility: Face to Face Visit Date: 08/01/2025 Follow-up provider for Plan of Care? I treated the patient in an acute care facility and will not continue treatment after discharge. Follow-up provider: GUSTAVO MEHTA [[id number]] Reason/Clinical Findings: PVD, cellulitis Describe mobility limitations that make leaving home difficult: impaired functional mobility, balance, gait and endurance Nursing/Therapeutic Services Requested: Retirement Nursing/Therapeutic Services Requested: Physical Therapy Nursing/Therapeutic Services Requested: Occupational Therapy penitentiary orders: Cardiopulmonary assessments penitentiary orders: Neurovascular assessments penitentiary orders: Wound care dressing/changes Instructions: Change mepilex Ag foam on left heel and foot every 3-4 days and wrap in Kerlex PT orders: Gait Training PT orders: Transfer training PT orders: Strengthening PT orders: Home safety assessment PT orders: Therapeutic exercise Weight Bearing Status: As Tolerated Occupational orders: Activities of daily living Occupational orders: Energy conservation Occupational orders: Strengthening Occupational orders: Cognition Occupational orders: Home safety assessment Frequency: 1 Week 1 This document serves as a request of services and does not constitute Insurance authorization or approval of services. To determine eligibility, please contact the members Insurance carrier to verifyand review coverage. If you have medical questions regarding this request for services. Please contact [address] at [phone] during normal business hours. Authorizing Provider:Carolina Sargent II, DO Authorizing Provider's Order Entered By: Nika Barfield RN 08/01/2025 12:00 PM Electronically signed by: Carolina Sargent II, DO 08/01/2025 12:00 PM Discharge Summary Carolina Sargent II, DO at 08/01/25 0813 [facility] Medicine Services DISCHARGE SUMMARY Patient Name: Trung Pool : 1955 Date of Admission: 06/25/2025 6:05 PM Date of Discharge: 08/01/2025 Primary Care Physician: Gustavo Mehta MD Consults Date and Time Order Name Status Description 07/22/2025 7:37 AM Inpatient Neurology Consult General Completed 07/14/2025 2:38 PM Inpatient Neurology Consult General Completed 07/04/2025 1:33 PM Inpatient Palliative Care MD Consult Completed 06/26/2025 8:49 AM Inpatient Urology Consult 06/26/2025 1:16 AM Inpatient General Surgery Consult Completed 06/26/2025 1:16 AM Inpatient Infectious Diseases Consult Completed 06/26/2025 1:16 AM Inpatient Vascular Surgery Consult Completed 06/02/2025 3:18 PM Inpatient Infectious Diseases Consult Completed Hospital Course Presenting Problem: Wound infection Active Hospital Problems Diagnosis POA Acute UTI (urinary tract infection) [N39.0] Yes Diarrhea of presumed infectious origin [R19.7] Yes Acute on chronic blood loss anemia [D62] Yes BPH without obstruction/lower urinary tract symptoms [N40.0] Yes GERD without esophagitis [K21.9] Yes Bilateral inguinal hernia [K40.20] Yes Gastroenteritis due to norovirus [A08.11] Yes Cellulitis [L03.90] Yes Type 2 diabetes mellitus, with long-term current use of insulin [E11.9, Z79.4] Not Applicable PAD (peripheral artery disease) [I73.9] Yes Coronary artery disease involving [place] coronary artery of [place] heart without angina pectoris [I25.10] Yes Seizure disorder [G40.909] Yes Primary hypertension [I10] Yes Resolved Hospital Problems Diagnosis Date Resolved POA Wound infection [T14.8XXA, L08.9] 08/01/2025 Unknown Hospital Course: Trung Pool is a 70yoM with PMH significant for HTN, HLD, CAD s/p stenting, PAD s/p R BKA and prior LLE revascularization and toe amputations, recurrent LLE cellulitis / wound infections, chronicpain / peripheral neuropathy, insulin- dependent DMII, chronic urinary retention with [place] catheter, seizure disorder with history of pseudoseizures, obesity and chronic debility. Last admitted to [facility] 06/02-06/11/25 for LLE cellulitis with failure of outpatient treatment. Wound cultures grew Proteus and concern for ESBL per lab and MRSA. He completed 7 days of IV abx prior to DC home. He has continued to decline LLE amputation. He returned to [facility] ED on 06/25/25 for evaluation of hematuria, L footdrainage, diarrhea and fatigue. Found to have Norovirus and Enterococcus bacteremia. Hospital course complicated by hospital delirium on 07/14 Hospital-acquired delirium - resolved. - neurology followed throughout stay. Was started on geodon and infection treated as below improving his mentation. LLE Wound Infection w/Cellulitis Severe PAD History of right BKA, LLE revascularization and toe amputation Enterococcus faecium bacteremia - MRI L foot showed edema in the distal first and second metatarsal diaphyses at the resection margins, osteomyelitis not excluded. CT angio left lower extremity revealed moderate focal narrowing at the junction of the SFA and the popliteal artery. 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 - LLE arterial dopplers with abnormal waveforms suggest inflow disease. Moderate 60% stenosis in the left SFA, the left CHIP appears to be occluded filling via collaterals retrograde - Blood cultures positive for Enterococcus faecium. IDD/Dr. Andres followed throughout stay - s/p full course of antibiotic therapy - Vascular surgery consulted - follows with Dr. Marcano. He is s/p LLE excisional debridement and wound VAC application on 07/03/25. - PT wound care following, patient self removed his wound vac on 07/22, currently PT wound care not planning to replace it - Continue Plavix / Eliquis - Palliative Care follows, patient now appears agreeable to Hospice care. Palliative can follow upon d/c. Hyperkalemia - Potassium of 6.2 07/11 - s/p lokelma. He subsequently refused further dosing of lokelma. Continueto hold entresto at d/c. Diarrhea Norovirus / C. Diff colonization - GI PCR panel with norovirus, C. difficile toxin is positive but antigen negative suggest colonization - Completed oral vancomycin taper. Discharge Follow Up Recommendations for outpatient labs/diagnostics: PCP 1-2 weeks upon hospital d/c. Day of Discharge HPI: Up in bed eating. Pain is controlled. In good spirits. See note from CM yesterday where he refused to consider SNF outside of [facility] and now wants to go home. Agreeable to going home today. Review of Systems Gen- No fevers, chills CV- No chest pain, palpitations Resp- No cough, dyspnea GI- No N/V/D, abd pain Vital Signs: Temp: [97.7 ??F (36.5 ??C)] 97.7 ??F (36.5 ??C) Heart Rate: [82] 82 Resp: [18] 18 BP: (118-142)/(69-82) 123/69 Physical Exam: Constitutional: No acute distress, awake, alert HENT: NCAT, mucous membranes moist Respiratory: Clear to auscultation bilaterally, respiratory effort normal Cardiovascular: RRR, no murmurs, rubs, or gallops Gastrointestinal: Positive bowel sounds, soft, nontender, nondistended, obese Musculoskeletal: Right BKA noted Psychiatric: Appropriate affect, cooperative Neurologic: Oriented x 3, strength symmetric in all extremities, Cranial Nerves grossly intact to confrontation, speech clear Skin: No rashes Pertinent and/or Most Recent Results LAB RESULTS: Brief Urine Lab Results (Last result in the past 365 days) Color Clarity Blood Leuk Est Nitrite Protein CREAT Urine HCG 07/14/25 0053 Yellow Clear Trace Moderate (2+) Negative 30 mg/dL (1+) Microbiology Results (last 10 days) No results found for the last [address] Head Without Contrast Result Date: 07/28/2025 CT HEAD WO CONTRAST Date of Exam: 07/28/2025 7:18 PM EST Indication: fall, hit head. Comparison: 07/03/2025 Technique: Axial CT images were obtained of the head without contrast administration. Automated exposure control and iterative construction methods were used. Findings: No intracranial hemorrhage. Gutierrez-white matter differentiation is maintained without evidence of an acute infarction. Multiple foci of decreased attenuation are present within the subcortical, deep cerebral, and periventricular white matter consistent with chronic small vessel/microangiopathic ischemic changes. No extra-axial mass or collection. The ventricles and sulci are prominent commensurate with involutional changes. The posterior fossa appears grossly normal. Sellar and suprasellar structures are normal. Orbital and periorbital soft tissues are normal. The paranasal sinuses, ethmoid air cells, and mastoid aircells are aerated. The bony calvarium is intact. Impression: No acute intracranial pathology. Electronically Signed: Feliciano Garcia MD 07/28/2025 7:43PM EST Workstation ID: [id number] Results for orders placed during the hospital encounter of 06/25/25 Duplex Venous Lower Extremity - Left CAR 06/26/2025 3:47 PM Interpretation Summary Normal left lower extremity venous duplex scan. Results for orders placed during the hospital encounter of 06/25/25 Duplex Venous Lower Extremity - Left CAR 06/26/2025 3:47 PM Interpretation Summary Normal left lower extremity venous duplex scan. Results for orders placed during the hospital [...] Discharge Medications New Medications Instructions Start Date acetaminophen 500 MG tablet Commonly known as: TYLENOL 1,000 mg, Oral, Every 8 Hours famotidine 20 MG tablet Commonly known as: PEPCID 20 mg, Oral, 2 Times Daily Before Meals naloxone 4 MG/0.1ML nasal spray Commonly known as: NARCAN Call 911. Don't prime. [place] in 1 nostril for overdose. Repeat in 2-3 minutes in other nostril if no or minimal breathing/responsiveness. oxyCODONE 15 MG immediate release tablet Commonly known as: ROXICODONE 15 mg, Oral, Every 4 Hours PRN ziprasidone 20 MG capsule Commonly known as: GEODON 20 mg, Oral, Nightly Continue These Medications Instructions Start Date apixaban 5 MG tablet tablet Commonly known as: ELIQUIS 5 mg, 2 Times Daily baclofen 10 MG tablet Commonly known as: LIORESAL 10 mg, Oral, Every 12 Hours Scheduled BASAGLAR KWIKPEN 100 UNIT/ML injection pen 56 Units, Nightly carvedilol 3.125 MG tablet Commonly known as: COREG 3.125 mg, Oral, 2 Times Daily With Meals clopidogrel 75 MG tablet Commonly known as: PLAVIX 75 mg, Oral, Daily finasteride 5 MG tablet Commonly known as: PROSCAR 5 mg, Oral, Daily folic acid 1 MG tablet Commonly known as: FOLVITE 1 mg, Daily gabapentin 100 MG capsule Commonly [...] tablet Commonly known as: ZOFRAN 4 mg, Every 8 Hours PRN vitamin C 250 MG tablet Commonly known as: ASCORBIC ACID 500 mg, Daily Stop These Medications furosemide 40 MG tablet Commonly known as: LASIX pantoprazole 40 MG EC tablet Commonly known as: PROTONIX sacubitril-valsartan 24-26 MG tablet Commonly known as: ENTRESTO Allergies Allergen Reactions Keppra [Levetiracetam] Other (See Comments) Acute psychosis Bupropion Unknown (See Comments) Codeine Nausea Only Hydrocodone Unknown (See Comments) Ketorolac Tromethamine Unknown (See Comments) Discharge Disposition: Home or Self Care Diet: Hospital: Diet Order Procedures Diet: Cardiac, Renal; Healthy Heart (2-3 Na+); Low Potassium; Fluid Consistency: Thin (IDDSI 0) Standing Status: Standing Number of Occurrences: 1 Diets:: Cardiac Diets:: Renal Cardiac Diet:: Healthy Heart (2-3 Na+) Renal Diet:: Low Potassium Fluid Consistency:: Thin (IDDSI 0) Activity: Restrictions or Other Recommendations: CODE STATUS: Code Status and Medical Interventions: No CPR (Do Not Attempt to Resuscitate); Comfort Measures Ordered at: 07/25/25 1024 Code Status (Patient has no pulse and is not breathing): No CPR (Do Not Attempt to Resuscitate) Medical Interventions (Patient has pulse or is breathing): Comfort Measures Level Of Support Discussed With: Patient Health Care Surrogate No future appointments. Carolina Sargent II, DO 08/01/25 Time Spent on Discharge: I spent 37 minutes on this discharge activity which included: [id number] with the patient, reviewing the data in the system, coordination of the care with the nursing staff as well as consultants, documentation, and entering orders. 1013 * Carolina Sargent II, DO - 08/01/2025 8:13 AM EST Images from the original note were not included. [facility] Medicine Services DISCHARGE SUMMARY Patient Name: Trung Pool : 1955 Date of Admission: 06/25/2025 6:05 PM Date of Discharge: 08/01/2025 Primary Care Physician: Gustavo Mehta MD Consults Date and Time Order Name Status Description 07/22/2025 7:37 AM Inpatient Neurology Consult General Completed 07/14/2025 2:38 PM Inpatient Neurology Consult General Completed 07/04/2025 1:33 PM Inpatient Palliative Care MD Consult Completed 06/26/2025 8:49 AM Inpatient Urology Consult 06/26/2025 1:16 AM Inpatient General Surgery Consult Completed 06/26/2025 1:16 AM Inpatient Infectious Diseases Consult Completed 06/26/2025 1:16 AM Inpatient Vascular Surgery Consult Completed 06/02/2025 3:18 PM Inpatient Infectious Diseases Consult Completed Hospital Course Presenting Problem: Wound infection Active Hospital Problems Diagnosis POA Acute UTI (urinary tract infection) [N39.0] Yes Diarrhea of presumed infectious origin [R19.7] Yes Acute on chronic blood loss anemia [D62] Yes BPH without obstruction/lower urinary tract symptoms [N40.0] Yes GERD without esophagitis [K21.9] Yes Bilateral inguinal hernia [K40.20] Yes Gastroenteritis due to norovirus [A08.11] Yes Cellulitis [L03.90] Yes Type 2 diabetes mellitus, with long-term current use of insulin [E11.9, Z79.4] Not Applicable PAD (peripheral artery disease) [I73.9] Yes Coronary artery disease involving [place] coronary artery of [place] heart without angina pectoris [I25.10] Yes Seizure disorder [G40.909] Yes Primary hypertension [I10] Yes Resolved Hospital Problems Diagnosis Date Resolved POA Wound infection [T14.8XXA, L08.9] 08/01/2025 Unknown Hospital Course: Trung Pool is a 70yoM with PMH significant for HTN, HLD, CAD s/p stenting, PAD s/p R BKA and prior LLE revascularization and toe amputations, recurrent LLE cellulitis / wound infections, chronicpain / peripheral neuropathy, insulin- dependent DMII, chronic urinary retention with De Los Santos catheter, seizure disorder with history of pseudoseizures, obesity and chronic debility. Last admitted to [facility] 06/02-06/11/25 for LLE cellulitis with failure of outpatient treatment. Wound cultures grew Proteus and concern for ESBL per lab and MRSA. He completed 7 days of IV abx prior to DC home. He has continued to decline LLE amputation. He returned to [facility] ED on 06/25/25 for evaluation of hematuria, L footdrainage, diarrhea and fatigue. Found to have Norovirus and Enterococcus bacteremia. Hospital course complicated by hospital delirium on 07/14 Hospital-acquired delirium - resolved. - neurology followed throughout stay. Was started on geodon and infection treated as below improving his mentation. LLE Wound Infection w/Cellulitis Severe PAD History of right BKA, LLE revascularization and toe amputation Enterococcus faecium bacteremia - MRI L foot showed edema in the distal first and second metatarsal diaphyses at the resection margins, osteomyelitis not excluded. CT angio left lower extremity revealed moderate focal narrowing at the junction of the SFA and the popliteal artery. 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 - LLE arterial dopplers with abnormal waveforms suggest inflow disease. Moderate 60% stenosis in the left SFA, the left CHIP appears to be occluded filling via collaterals retrograde - Blood cultures positive for Enterococcus faecium. IDD/Dr. Andres followed throughout stay - s/p full course of antibiotic therapy - Vascular surgery consulted - follows with Dr. Marcano. He is s/p LLE excisional debridement and wound VAC application on 07/03/25. - PT wound care following, patient self removed his wound vac on 07/22, currently PT wound care not planning to replace it - Continue Plavix / Eliquis - Palliative Care follows, patient now appears agreeable to Hospice care. Palliative can follow upon d/c. Hyperkalemia - Potassium of 6.2 07/11 - s/p lokelma. He subsequently refused further dosing of lokelma. Continueto hold entresto at d/c. Diarrhea Norovirus / C. Diff colonization - GI PCR panel with norovirus, C. difficile toxin is positive but antigen negative suggest colonization - Completed oral vancomycin taper. Discharge Follow Up Recommendations for outpatient labs/diagnostics: PCP 1-2 weeks upon hospital d/c. Day of Discharge HPI: Up in bed eating. Pain is controlled. In good spirits. See note from CM yesterday where he refused to consider SNF outside of [facility] and now wants to go home. Agreeable to going home today. Review of Systems Gen- No fevers, chills CV- No chest pain, palpitations Resp- No cough, dyspnea GI- No N/V/D, abd pain Vital Signs: Temp: [97.7 ??F (36.5 ??C)] 97.7 ??F (36.5 ??C) Heart Rate: [82] 82 Resp: [18] 18 BP: (118-142)/(69-82) 123/69 Physical Exam: Constitutional: No acute distress, awake, alert HENT: NCAT, mucous membranes moist Respiratory: Clear to auscultation bilaterally, respiratory effort normal Cardiovascular: RRR, no murmurs, rubs, or gallops Gastrointestinal: Positive bowel sounds, soft, nontender, nondistended, obese Musculoskeletal: Right BKA noted Psychiatric: Appropriate affect, cooperative Neurologic: Oriented x 3, strength symmetric in all extremities, Cranial Nerves grossly intact to confrontation, speech clear Skin: No rashes Pertinent and/or Most Recent Results LAB RESULTS: Brief Urine Lab Results (Last result in the past 365 days) Color Clarity Blood Leuk Est Nitrite Protein CREAT Urine [facility] [place] 07/14/25 0053 Yellow Clear Trace Moderate (2+) Negative 30 mg/dL (1+) Microbiology Results (last 10 days) No results found for the last [address] Head Without Contrast Result Date: 07/28/2025 CT HEAD WO CONTRAST Date of Exam: 07/28/2025 7:18 PM EST Indication: fall, hit head. Comparison: 07/03/2025 Technique: Axial CT images were obtained of the head without contrast administration. Automated exposure control and iterative construction methods were used. Findings: No intracranial hemorrhage. Gutierrez-white matter differentiation is maintained without evidence of an acute infarction. Multiple foci of decreased attenuation are present within the subcortical, deep cerebral, and periventricular white matter consistent with chronic small vessel/microangiopathic ischemic changes. No extra-axial mass or collection. The ventricles and sulci are prominent commensurate with involutional changes. The posterior fossa appears grossly normal. Sellar and suprasellar structures are normal. Orbital and periorbital soft tissues are normal. The paranasal sinuses, ethmoid air cells, and mastoid aircells are aerated. The bony calvarium is intact. Impression: No acute intracranial pathology. Electronically Signed: Feliciano Garcia MD 07/28/2025 7:43PM EST Workstation ID: [id number] Results for orders placed during the hospital encounter of 06/25/25 Duplex Venous Lower Extremity - Left CAR 06/26/2025 3:47 PM Interpretation Summary Normal left lower extremity venous duplex scan. Results for orders placed during the hospital encounter of 06/25/25 Duplex Venous Lower Extremity - Left CAR 06/26/2025 3:47 PM Interpretation Summary Normal left lower extremity venous duplex scan. Results for orders placed during the hospital [...] Discharge Medications New Medications Instructions Start Date acetaminophen 500 MG tablet Commonly known as: TYLENOL 1,000 mg, Oral, Every 8 Hours famotidine 20 MG tablet Commonly known as: PEPCID 20 mg, Oral, 2 Times Daily Before Meals naloxone 4 MG/0.1ML nasal spray Commonly known as: NARCAN Call 911. Don't prime. [place] in 1 nostril for overdose. Repeat in 2-3 minutes in other nostril if no or minimal breathing/responsiveness. oxyCODONE 15 MG immediate release tablet Commonly known as: ROXICODONE 15 mg, Oral, Every 4 Hours PRN ziprasidone 20 MG capsule Commonly known as: GEODON 20 mg, Oral, Nightly Continue These Medications Instructions Start Date apixaban 5 MG tablet tablet Commonly known as: ELIQUIS 5 mg, 2 Times Daily baclofen 10 MG tablet Commonly known as: LIORESAL 10 mg, Oral, Every 12 Hours Scheduled BASAGLAR KWIKPEN 100 UNIT/ML injection pen 56 Units, Nightly carvedilol 3.125 MG tablet Commonly known as: COREG 3.125 mg, Oral, 2 Times Daily With Meals clopidogrel 75 MG tablet Commonly known as: PLAVIX 75 mg, Oral, Daily finasteride 5 MG tablet Commonly known as: PROSCAR 5 mg, Oral, Daily folic acid 1 MG tablet Commonly known as: FOLVITE 1 mg, Daily gabapentin 100 MG capsule Commonly [...] tablet Commonly known as: ZOFRAN 4 mg, Every 8 Hours PRN vitamin C 250 MG tablet Commonly known as: ASCORBIC ACID 500 mg, Daily Stop These Medications furosemide 40 MG tablet Commonly known as: LASIX pantoprazole 40 MG EC tablet Commonly known as: PROTONIX sacubitril-valsartan 24-26 MG tablet Commonly known as: ENTRESTO Allergies Allergen Reactions Keppra [Levetiracetam] Other (See Comments) Acute psychosis Bupropion Unknown (See Comments) Codeine Nausea Only Hydrocodone Unknown (See Comments) Ketorolac Tromethamine Unknown (See Comments) Discharge Disposition: Home or Self Care Diet: Hospital: Diet Order Procedures Diet: Cardiac, Renal; Healthy Heart (2-3 Na+); Low Potassium; Fluid Consistency: Thin (IDDSI 0) Standing Status: Standing Number of Occurrences: 1 Diets:: Cardiac Diets:: Renal Cardiac Diet:: Healthy Heart (2-3 Na+) Renal Diet:: Low Potassium Fluid Consistency:: Thin (IDDSI 0) Activity: Restrictions or Other Recommendations: CODE STATUS: Code Status and Medical Interventions: No CPR (Do Not Attempt to Resuscitate); Comfort Measures Ordered at: 07/25/25 1024 Code Status (Patient has no pulse and is not breathing): No CPR (Do Not Attempt to Resuscitate) Medical Interventions (Patient has pulse or is breathing): Comfort Measures Level Of Support Discussed With: Patient Health Care Surrogate No future appointments. Carolina Sargent II, DO 08/01/25 Time Spent on Discharge: I spent 37 minutes on this discharge activity which included: [id number] with the patient, reviewing the data in the system, coordination of the care with the nursing staff as well as consultants, documentation, and entering orders. * Samia Barnes RN - 07/30/2025 11:17 AM EST Images from the original note were not included. Trung Pool (70 y.o. 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), MRSA (11/20/21), ESBL (06/06/25), C.difficile (06/26/25) Code Status: No CPR Ht: 182.9 cm (72 ) Wt: 116 kg (256 lb) Admission Cmt: None Principal Problem: Wound infection [T14.8XXA,L08.9] Active Insurance as of 06/25/2025 Primary Coverage Payor Plan Insurance Group Employer/Plan Group [employer] [place] [employer]PLACEMENT [facility] [employer] PPO Payor Plan Address Payor Plan Phone Number Payor Plan Fax Number Effective Dates [address] [address] 01/12/2024 - None Entered [facility] [id number] Subscriber Name Subscriber Date Member ID TRUNG POOL 1955 [id number] Emergency Contacts Brand Communications Manager (Rel.) Home Phone Work Phone Mobile Phone Zhane Salazar (Sister) [phone] -- [phone] History & Physical Amanda Bermudez MD at 06/25/25 [address] [facility] Medicine Services HISTORY AND PHYSICAL Patient Name: Trung Pool : 1955 Primary Care Physician: Gustavo Mehta MD Date of admission: 06/25/2025 Subjective Subjective Chief Complaint: Blood in urine, foot draining, fatigue, diarrhea since last Wednesday HPI: Trung Pool is a 70 y.o. male male with of CAD, PAD, Type 2 diabetes and history of right leg BKA amputation who presents to the emergency department with self-reported blood in his urine, left foot stump drainage, fatigue, and diarrhea. The patient reports having blood in his urine with associated bad odor. He has been experiencing severe fatigue. He has had diarrhea since last Wednesday, for which his primary care doctor prescribed medication that provided some relief. His last bowel movement was yesterday and remained watery despite treatment. Regarding his left leg, he reports that his foot has been throbbing and burning for approximately the last 6 months. He notes increased redness of the leg compared to usual and reports fluid leakage from the foot stump area. The foot was described as draining real bad. He states he can feel the area but it does not hurt. He does not follow with a vascular surgeon. The patient has Type 2 diabetes and uses an insulin pen nightly before bed. He did not take his insulin before coming to the hospital. He quit smoking 15 years ago and has not consumed alcohol for a long time. He uses plant brownies for pain and nausea management. He lives independently and uses an electric wheelchair for mobility. Home health services began visiting 3 days per week starting one week ago. Personal History Past Medical History: Diagnosis Date Anemia Cellulitis Diabetes mellitus Frequent falls History of DVT (deep vein thrombosis) Hyperlipidemia Hypertension Migraines Myocardial infarction Peripheral neuropathy Pneumonia Spinal stenosis Wears dentures FULL Wears glasses Past Surgical History: Procedure Laterality Date ABOVE KNEE AMPUTATION Right AMPUTATION DIGIT Left 01/28/2024 Procedure: SECOND AND THIRD TOE AMPUTATION LEFT; Surgeon: Cecil Buenrostro Jr., MD; Location: [facility]; Service: Orthopedics; Laterality: Left; ANTERIOR CERVICAL DISCECTOMY W/ FUSION Bilateral 07/17/2020 Procedure: Cervical discectomy anterior with fusion C3-4; Surgeon: Tyree Tan MD; Location:[facility]; Service: Neurosurgery; Laterality: Bilateral; AORTOGRAM N/A 01/26/2024 Procedure: ABDOMINAL AORTIC ANGIOGRAM, LLE ANGIOGRAM, LEFT ANTERIOR TIBIAL ATHERECTOMY, LEFT ANTERIOR TIBIAL ANGIOPLASTY; Surgeon: Archie Olvera MD; Location: [facility] HYBRID OR; Service: Vascular; Laterality: N/A; CONTRAST: 50 ML, FT: 2 MIN 54 SEC, DOSE: 66 MGY. BACK SURGERY FOR DISC HERNIATION CARDIAC CATHETERIZATION CARDIAC CATHETERIZATION N/A 09/04/2024 Procedure: Peripheral angiography - Left lower extremity angio - Right femoral access; Surgeon: Jared Marcano MD; Location: [facility] CATH INVASIVE LOCATION; Service: Peripheral Vascular; Laterality: N/A; CORONARY ANGIOPLASTY WITH STENT PLACEMENT stent x 1 INCISION AND DRAINAGE FOOT Left 06/17/2023 Procedure: LEFT FOOT DEBRIDEMENT WOUND VACUUM ASSISTED CLOSURE; Surgeon: Cecil Buenrostro Jr., MD;Location: [facility]; Service: Orthopedics; Laterality: Left; INCISION AND DRAINAGE LEG Left 07/25/2023 Procedure: INCISION AND DRAINAGE HEEL, WOUND VAC; Surgeon: Cecil Buenrostro Jr., MD; Location: [facility]; Service: Orthopedics; Laterality: Left; INTERVENTIONAL RADIOLOGY PROCEDURE N/A 05/02/2019 Procedure: IVC FILTER PLACEMENT; Surgeon: Pedro Zapien MD; Location: [facility] CATH INVASIVE LOCATION; Service: Interventional Radiology INTERVENTIONAL RADIOLOGY PROCEDURE Left 09/07/2024 Procedure: LEFT peroneal arteriovenous fistula embolization - Right femoral access; Surgeon: Jared Marcano MD; Location: [facility] CATH INVASIVE LOCATION; Service: Cardiovascular; Laterality: Left; Please coordinate with Gautam Patel ([facility]) [phone] who will bring coils LUMBAR DISCECTOMY N/A 05/03/2019 Procedure: THORACIC LAMINECTOMY T11-12; Surgeon: Tyree Tan MD; Location: [facility]; Service: Neurosurgery Family History: family history [...] minerals, ondansetron, pantoprazole, sacubitril-valsartan, and vitamin C Allergies[1] Objective Objective Vital Signs: Temp: [98.3 ??F (36.8 ??C)] 98.3 ??F (36.8 ??C) Heart Rate: [56-84] 77 Resp: [12-18] 17 BP: (108-157)/(50-90) 157/90 Physical Exam Vitals reviewed. Constitutional: General: He is not in acute distress. Appearance: Normal appearance. He is obese. HENT: Head: Normocephalic and atraumatic. Right Ear: External ear normal. Left Ear: External ear normal. Nose: Nose normal. Mouth/Throat: Mouth: Mucous membranes are dry. Eyes: General: No scleral icterus. Extraocular Movements: Extraocular movements intact. Pupils: Pupils are equal, round, and reactive to light. Cardiovascular: Rate and Rhythm: Normal rate and regular rhythm. Pulses: Normal pulses. Heart sounds: Normal heart sounds. No murmur heard. Pulmonary: Effort: Pulmonary effort is normal. No respiratory distress. Breath sounds: Normal breath sounds. No stridor. No wheezing. Abdominal: General: Bowel sounds are normal. There is no distension. Palpations: Abdomen is soft. Tenderness: There is abdominal tenderness. There is no guarding. Hernia: A hernia is present. Comments: Tenderness in left lower quadrant Genitourinary: Comments: De Los Santos in place Musculoskeletal: General: Deformity present. No swelling. Cervical back: Normal range of motion and neck supple. Comments: R BKA L transmetatarsal amputation Skin: General: Skin is warm and dry. Capillary Refill: Capillary refill takes less than 2 seconds. Coloration: Skin is not jaundiced. Findings: Erythema and lesion present. Comments: 2 to 3 cm ulceration on the dorsal aspect left foot stump; yellow in color Left lower extremity is dry, flaky, and erythematous Neurological: General: No focal deficit present. Mental Status: He is alert and oriented to person, place, and time. Cranial Nerves: No cranial nerve deficit. Sensory: Sensory deficit present. Motor: Weakness present. Gait: Gait abnormal. Psychiatric: Mood and Affect: Mood normal. Behavior: Behavior normal. Thought Content: Thought content normal. Result Review: I have personally reviewed the results from the time of this admission to 06/26/2025 00:11 EDT and agree with these findings: [x] Laboratory list / accordion [x] Microbiology [x] Radiology [x] EKG/Telemetry [] Cardiology/Vascular [] Pathology [x] Old records [] Other: Most notable findings include: LAB RESULTS: Lab 06/25/251816 WBC 9.96 HEMOGLOBIN 8.9* HEMATOCRIT 29.8* PLATELETS 281 NEUTROS ABS 7.05* IMMATURE GRANS (ABS) 0.05 LYMPHS ABS 1.48 MONOS ABS 1.01* EOS ABS 0.32 MCV 76.2* CRP 4.34* PROCALCITONIN 0.12 LACTATE 1.7 Lab 06/25/251816 SODIUM 138 POTASSIUM 4.4 CHLORIDE 106 CO2 21.2* ANION GAP 10.8 BUN 27.3* CREATININE 1.21 EGFR 64.0 GLUCOSE 173* CALCIUM 8.3* Lab 06/25/251816 TOTAL PROTEIN 7.2 ALBUMIN 3.2* GLOBULIN 4.0 ALT (SGPT) 14 AST (SGOT) 15 BILIRUBIN 0.2 ALK PHOS 127* UA 06/02/2025 12:31 06/25/2025 20:01 Urinalysis Squamous Epithelial Cells, UA Unable to determine due to loaded field 0-2 Specific [place], UA 1.019 1.011 Ketones, UA Negative Negative Blood, UA Large (3+) Large (3+) Leukocytes, UA Large (3+) Large (3+) Nitrite, UA Positive Positive RBC, UA Too Numerous to Count 6-10 WBC, UA Too Numerous to Count Too Numerous to Count Bacteria, UA 4+ 4+ Microbiology Results (last 10 days) Procedure Component Value - Date/Time Wound Culture - Swab, Foot, Left [[id number]] Collected: 06/25/251817 Lab Status: Preliminary result Specimen: Swab from Foot, Left Updated: 06/25/252205 Gram Stain Few (2+) WBCs seen Few (2+) Gram positive cocci in pairs, chains and clusters Few (2+) Gram negative bacilli CT Abdomen Pelvis With Contrast Addendum Date: 06/25/2025 ADDENDUM #1 IVC filter is present on imaging study. It is recommended that all patients with IVC filters in place have an active management care plan to monitor their IVC filter. If a care plan is not in place, patient should have a non emergent referral to an interventional specialist such as interventional radiology or other interventional vascular specialist for establishment of an IVC filter management care plan. Electronically Signed: Nehemias Ferraro 06/25/2025 9:53 PM EDT Workstation ID: [id number] ORIGINAL REPORT: CT ABDOMEN PELVIS W CONTRAST Date of Exam: 06/25/2025 7:05 PM EDT Indication:Diarrhea, hematuria, abdominal discomfort. Comparison: 06/02/2025 Technique: Axial CT images were obt ained of the abdomen and pelvis following the uneventful intravenous administration of iodinated contrast. Reconstructed coronal and sagittal images were also obtained. Automated exposure control anditerative construction methods were used. Findings: Calcific atherosclerosis of the coronary arteries. No pleural or pericardial effusion. No suspicious infiltrate in the lower lungs. No definite ectopic bowel gas. No splenomegaly or suspicious splenic lesion. No suspicious hepatic abnormality. No definite acute biliary abnormality. No suspicious splenic or pancreatic abnormality. Aorta appears normal in caliber. There is calcific atherosclerosis of the aorta and branch vessels. IVC filter is present, as before. Lymph nodes do not appear significantly enlarged. Probable small bilateral upper pole renal cysts. There is expected excretion of contrast from the kidneys. No hydronephrosis. No dilated small bowel loops. No definite acute gastric abnormality. Small fat-containing umbilical hernia. There are bilateral inguinal hernias. Smaller right inguinal hernia contains fat. Larger left inguinal hernia contains a partial loop of sigmoid colon. No proximal dilatation. The appendix appears within normal limits. No definite findings of acute colonic inflammation. The bladder is moderately distended. Small amount of gas is present in the bladder, as before. Bladder wall thickening appearsmildly decreased since the prior exam. Prostate does not appear significantly enlarged. De Los Santos catheter balloon and tip appears to terminate in the proximal penile urethra. There is some questionable wall thickening of the distal rectum. No other definite perirectal abnormality. There appears to be mild asymmetric prominence of the left inguinal lymph nodes. Severe left and moderate right hip osteoarthritis. Advanced degenerative changes in the lumbar spine. Mild chronic T11 and T12 height loss,as before. There is ankylosis at the sacroiliac joints. No visualized aggressive osseous lesion. Impression: 1.De Los Santos catheter balloon and tip appear to terminate in the proximal penile urethra. Recommend repositioning. 2.Moderate distention of the bladder with small amount of gas in the bladder, asbefore. Bladder wall thickening appears mildly decreased since the prior exam. Correlate with urinalysis. 3.Questionable wall thickening of the distal rectum. Correlate for symptoms of proctitis. 4.Bilateral inguinal hernias, larger on the left containing a partial loop of sigmoid colon. No proximal dilatation. 5.Mild asymmetric prominence of the left inguinal lymph nodes, likely reactive. Clinical follow-up recommended. 6.Calcific atherosclerosis. The ordering provider was notified of the results by Dr. Ferraro at 06/25/2025 7:54 PM EDT. Electronically Signed: Nehemias Ferraro 06/25/2025 7:55 PM EDT Workstation ID: [id number] Result Date: 06/25/2025 CT ABDOMEN PELVIS W CONTRAST Date of Exam: 06/25/2025 7:05 PM EDT Indication: Diarrhea, hematuria, abdominal discomfort. Comparison: 06/02/2025 Technique: Axial CT images were obtained of the abdomen and pelvis following the uneventful intravenous administration of iodinated contrast. Reconstructed coronal and sagittal images were also obtained. Automated exposure control and iterative construction methods were used. Findings: Calcific atherosclerosis of the coronary arteries. No pleural or pericardial effusion. No suspicious infiltrate in the lower lungs. No definite ectopic bowel gas. No splenomegaly or suspicious splenic lesion. No suspicious hepatic abnormality. No definite acute biliary abnormality. No suspicious splenic or pancreatic abnormality. Aorta appears normal in caliber. There is calcific atherosclerosis of the aorta and branch vessels. IVC filter is present, as before. Lymph nodes do not appear significantly enlarged. Probable small bilateral upper pole renal cysts. There is expected excretion of contrast from the kidneys. No hydronephrosis. No dilated small bowel loops. No definite acute gastric abnormality. Small fat- containing umbilical hernia. There are bilateralinguinal hernias. Smaller right inguinal hernia contains fat. Larger left inguinal hernia contains a partial loop of sigmoid colon. No proximal dilatation. The appendix appears within normal limits. No definite findings of acute colonic inflammation. The bladder is moderately distended. Small amount of gas is present in the bladder, as before. Bladder wall thickening appears mildly decreased since the prior exam. Prostate does not appear significantly enlarged. De Los Santos catheter balloon and tip appears to terminate in the proximal penile urethra. There is some questionable wall thickening of thedistal rectum. No other definite perirectal abnormality. There appears to be mild asymmetric prominence of the left inguinal lymph nodes. Severe left and moderate right hip osteoarthritis. Advanced degenerative changes in the lumbar spine. Mild chronic T11 and T12 height loss, as before. There is ankylosis at the sacroiliac joints. No visualized aggressive osseous lesion. Impression: Impression: 1.De [place] Santos catheter balloon and tip appear to terminate in the proximal penileurethra. Recommend repositioning. 2.Moderate distention of the bladder with small amount of gas in the bladder, as before. Bladder wall thickening appears mildly decreased since the prior exam. Correlate with urinalysis. 3.Questionable wall thickening of the distal rectum. Correlate for symptoms ofproctitis. 4.Bilateral inguinal hernias, larger on the left containing a partial loop of sigmoid colon. No proximal dilatation. 5.Mild asymmetric prominence of the left inguinal lymph nodes, likely reactive. Clinical follow-up recommended. 6.Calcific atherosclerosis. The ordering provider was notified of the results by Dr. Ferraro at 06/25/2025 7:54 PM EDT. Electronically Signed: Nehemias Ferraro 06/25/2025 7:55 PM EDT Workstation ID: [id number] XR Foot 3+ View Left Result Date: 06/25/2025 XR FOOT 3+ VW LEFT Date of Exam: 06/25/2025 6:15 PM EDT Indication: diabetic ulcer. Comparison: August 2024 Findings: Bones are grossly osteopenic. There is marked soft tissue swelling overlying dorsum of the foot and at the stump distal to the metatarsal ray resection sites. There is shallow soft tissue ulceration at the dorsum of the foot distally. 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 There is dense vascular calcification noted. Impression: Impression: Marked soft tissue swelling at the stump and dorsum of the foot suggest cellulitis.. Small shallow soft tissue ulceration distal dorsum of the foot No acute osseous abnormality. If there is concern for osteomyelitis MRI is recommended. Electronically Signed: Duglas Lay MD 06/25/2025 7:03 PM EDT Workstation ID: [id number] Results for orders placed during the hospital encounter of 08/31/24 Adult Transthoracic Echo Complete W/ Cont if Necessary Per Protocol 09/12/2024 4:10 PM Interpretation Summary Left ventricular systolic function is normal. Calculated left ventricular EF = 52.5% There is a trivial pericardial effusion. The aortic valve exhibits sclerosis. Mitral annular calcification is present. Assessment & Plan Assessment & Plan Severe sepsis PAD (peripheral artery disease) Cellulitis Acute UTI (urinary tract infection) Primary hypertension Seizure disorder Coronary artery disease involving [place] coronary artery of [place] heart without angina pectoris Type 2 diabetes mellitus, with long-term current use of insulin Diarrhea of presumed infectious origin Acute on chronic blood loss anemia BPH without obstruction/lower urinary tract symptoms GERD without esophagitis Bilateral inguinal hernia Mr. Trung Pool is a male with Type 2 diabetes, PAD and history of right leg amputation who presents with hematuria, infected foot drainage, diarrhea since last Wednesday, and fatigue.The left foot showing signs of cellulitis with increased redness, fluid drainage, and throbbing pain over the past 6 months in the setting of previous amputation due to gangrene raises concern for recurrent infection or vascular compromise. Given the patient's diabetic history and previous gangrene, there is significant risk for serious soft tissue infection requiring aggressive antibiotic treatment and vascular surgery evaluation.The combination of multiple active infections, diabetes management issues (patient d id not take insulin before arrival), and recent need for home health services indicates complex medical needs requiring inpatient management. Severe sepsis multiple sources include: LLE cellulitis and UTI rule out infectious diarrhea History of recurrent left lower extremity cellulitis and wounds - Admit to medicine with telemetry monitoring -Initiate sepsis protocol: IV fluids, IV empiric antibiotics: Daptomycin and Zosyn; trend lactate, procal, urine studies, blood cultures; check CXR -Fluid management: IV fluid sepsis bolus: 2.8L IV maintenance fluids: 75cc/hr x 24hrs -Consult to wound care for left lower extremity limb assessment --Obtain EKG, check cardiac enzymes --Prior urine Cx 06/02: Positive for Proteus ESBL and E. Coli Consult infectious disease in the morning for antibiotic guidance -Acute diarrhea: Check GI PCR panel if further episodes and C. Difficile -De Los Santos catheter in place -CT abd scan: Moderate distention of the bladder with small amount of gas in the bladder, as before. Bladder wall thickening, Questionable wall thickening of the distal rectum. Correlate for symptomsof proctitis. - Pulmonary toilet: Incentive spirometer, OPEP, duonebs 2. Severe PAD Hx of Right BKA; LLE revascularization and toes amputation -Imaging: CTA angio LLE to assess anatomy of arterial system for presence of plaque or clots -Check LLE arterial Doppler to assess blood flow and venous duplex to rule out VTE. -Check MRI to assess for osteomyelitis -pulse checks with dopplers -Pain management: IV morphine, resume home dose gabapentin and baclofen -Resume Plavix holding Eliquis due to self-reported hematuria - Mobility: Patient is wheelchair-bound and lives alone PT/OT eval consult to case management regarding placement --Consult vascular surgery in morning 3. T2DM -last A1C 7.6 () - Insulin sliding scale while inpatient glucose checks every 6 hours -Basal insulin dose: 56 units - Repeat A1c and lipid panel with a.m. labs 4. Acute on chronic anemia --H/H 8.06/11 MCV 76 patient reported hematuria in the ER -UA+ RBC and blood Continue to monitor closely off home dose Eliquis- holding off anticoagulationovernight - Type and screen transfuse for hemoglobin less than 7g/dL 5. HTN Hx of CAD - Resume home dose Coreg + plavix + Entresto 6. GERD BPH -continue PPI - Continue home dose finasteride 7. History of seizure disorder - Continue home dose lamotrigine 8. Bilateral inguinal hernias - Incidental finding on CT: Bilateral inguinal hernias, larger on the left containing a partial loop of sigmoid colon. - Consult to general surgeon in the morning Total time spent: 45 minutes Time spent includes time reviewing chart, [id number] time, counseling patient/family/caregiver, ordering medications/tests/procedures, communicating with other health healthcare specialist, documenting clinical information in the electronic health record, and coordination of care. VTE Prophylaxis: Pharmacologic VTE prophylaxis orders are signed & held. CODE STATUS: Code Status and Medical Interventions: CPR (Attempt to Resuscitate); Full Support Ordered at: 06/25/25 6370 Code Status (Patient has no pulse and is not breathing): CPR (Attempt to Resuscitate) Medical Interventions (Patient has pulse or is breathing): Full Support Level Of Support Discussed With: Patient Expected Discharge Expected Discharge Date: 06/27/2025; Expected Discharge Time: Amanda Bermudez MD 06/26/25 [1] Allergies Allergen Reactions Keppra [Levetiracetam] Other (See Comments) Acute psychosis Bupropion Unknown (See Comments) Codeine Nausea Only Hydrocodone Unknown (See Comments) Ketorolac Tromethamine Unknown (See Comments) 2206 Current Facility-Administered Medications Medication Dose Route Frequency Provider Last Rate Last Admin acetaminophen (TYLENOL) tablet 1,000 mg 1,000 mg Oral Q8H Talisha Resendez, DIABETES NURSE 1,000 mg at 07/30/25 0932 aluminum-magnesium hydroxide-simethicone (MAALOX MAX) 400-400-40 MG/5ML suspension 15 mL 15 mL [id number] PRN Vaughn Hollingsworth, DO apixaban (ELIQUIS) tablet 5 mg 5 mg Oral BID Margaret Massey APRN 5 mg at 07/30/25 0931 ascorbic acid (VITAMIN C) tablet 500 mg 500 mg Oral Daily Vaughn Hollingsworth, DO 500 mg at 07/30/25 0932 baclofen (LIORESAL) tablet 5 mg 5 mg Oral Q12H Talisha Resendez, DIABETES NURSE 5 mg at 07/30/25 0932 benzonatate (TESSALON) capsule 200 mg 200 mg Oral TID PRN Mere Armas PA-C 200 mg at 07/18/25 1532 sennosides-docusate (PERICOLACE) 8.6-50 MG per tablet 2 tablet 2 tablet Oral BID PRN Vaughn Hollingsworth,DO 2 tablet at 07/28/25 0808 And polyethylene glycol (MIRALAX) packet 17 g 17 g Oral Daily PRN Vaughn Hollingsworth, DO And bisacodyl (DULCOLAX) EC tablet 5 mg 5 mg Oral Daily PRN Vaughn Hollingsworth, DO And bisacodyl (DULCOLAX) suppository 10 mg 10 mg Rectal Daily PRN Vaughn Hollingsworth, DO carvedilol (COREG) tablet 3.125 mg 3.125 mg Oral BID With Meals Vaughn Hollingsworth, DO 3.125 mg at 07/30/25 0932 clopidogrel (PLAVIX) tablet 75 mg 75 mg Oral Daily Vaughn Hollingsworth, DO 75 mg at 07/30/25 0932 dextrose (D50W) (25 g/50 mL) IV injection 25 g 25 g Intravenous Q15 Min PRN Ju Gonzalez, IZABELLA dextrose (GLUTOSE) oral gel 15 g 15 g Oral Q15 Min PRN Ju Gonzalez, DIABETES NURSE diphenhydrAMINE-zinc acetate 2-0.1 % cream 1 Application 1 Application Topical TID PRN Flynn Orellana PA-C famotidine (PEPCID) tablet 20 mg 20 mg Oral BID AC Vaughn Hollingsworth DO 20 mg at 07/30/25 0538 finasteride (PROSCAR) tablet 5 mg 5 mg Oral Daily Vaughn Hollingsworth DO 5 mg at 07/30/25 0932 folic acid (FOLVITE) tablet 1 mg 1 mg Oral Daily Vaughn Hollingsworth, DO 1 mg at 07/30/25 0931 gabapentin (NEURONTIN) capsule 400 mg 400 mg Oral Q8H Shara Bermudez APRN 400 mg at 07/30/25 0538 glucagon (GLUCAGEN) injection 1 mg 1 mg Subcutaneous Q15 Min PRN Gigi Alcantara MD influenza vac split high-dose (FLUZONE HIGH DOSE) injection 0.5 mL 0.5 mL Intramuscular During Hospitalization Vaughn Hollingsworth DO insulin glargine (LANTUS, SEMGLEE) injection 22 Units 22 Units Subcutaneous Nightly Chantale Gonzalez APRN 22 Units at 07/29/252125 Insulin Lispro (humaLOG) injection 2-7 Units 2-7 Units Subcutaneous TID With Meals Ju Gonzalez APRN 2 Units at 07/29/25 175 ipratropium-albuterol (DUO-NEB) nebulizer solution 3 mL 3 mL Nebulization Q6H PRN Vaughn Hollingsworth DO lamoTRIgine (LaMICtal) tablet 100 mg 100 mg Oral Daily Vaughn Hollingsworth, DO 100 mg at 07/30/25 0932 lamoTRIgine (LaMICtal) tablet 250 mg 250 mg Oral Nightly Vaughn Hollingsworth DO 250 mg at 07/29/252126 methenamine (HIPREX) tablet 1 g 1 g Oral BID With Meals Vaughn Hollingsworth, DO 1 g at 07/30/25 0932 multivitamin with minerals 1 tablet 1 tablet Oral Daily Vaughn Hollingsworth, DO 1 tablet at 07/30/25 0932 ondansetron (ZOFRAN) injection 4 mg 4 mg Intravenous Q6H PRN Vaughn Hollingsworth, DO 4 mg at 07/16/25 0923 oxyCODONE (ROXICODONE) immediate release tablet 10 mg 10 mg Oral Q4H Ju Gonzalez, DIABETES NURSE 10 mg at 07/30/25 0931 oxyCODONE (ROXICODONE) immediate release tablet 15 mg 15 mg Oral Q4H PRN Carolina Sargent II DO thiamine (VITAMIN B-1) tablet 100 mg 100 mg Oral Daily Ju Gonzalez R, DIABETES NURSE 100 mg at 07/30/25 0932 vancomycin (VANCOCIN) capsule 125 mg 125 mg Oral Daily Vaughn Hollingsworth, DO 125 mg at 07/30/25 0932 Followed by [START ON 08/01/2025] vancomycin (VANCOCIN) capsule 125 mg 125 mg Oral Weekly Vaughn Hollingsworth DO ziprasidone (GEODON) capsule 20 mg 20 mg Oral Nightly Bermudez, December K, DIABETES NURSE 20 mg at 07/29/252126 Or ziprasidone (GEODON) injection 10 mg 10 mg Intramuscular Nightly Bermudez, December K, DIABETES NURSE 10 mg at 07/24/252009 ziprasidone (GEODON) injection 10 mg 10 mg Intramuscular Q6H PRN Gigi Alcantara MD 10 mg at 07/24/25 1003 Physician Progress Notes (most recent note) Carolina Sargent II, DO at 07/30/25 0913 [facility] Medicine Services PROGRESS NOTE Patient Name: Trung Pool : 1955 Date of Admission: 06/25/2025 Primary Care Physician: Gustavo Mehta MD Subjective Subjective CC: f/u leg wounds HPI: Up in bed. C/O mild leg pain but otherwise okay. Eating some breakfast. Objective Objective Vital Signs: Temp: [97.8 ??F (36.6 ??C)-98.2 ??F (36.8 ??C)] 98.2 ??F (36.8 ??C) Heart Rate: [70-95] 79 Resp: [16-18] 16 BP: (111-133)/(60-81) 129/71 Physical Exam: Constitutional: No acute distress, awake, alert HENT: NCAT, mucous membranes moist Respiratory: Clear to auscultation bilaterally, respiratory effort normal Cardiovascular: RRR, no murmurs, rubs, or gallops Gastrointestinal: Positive bowel sounds, soft, nontender, nondistended Musculoskeletal: Leg dressed Psychiatric: Appropriate affect, cooperative Neurologic: Oriented x 3, strength symmetric in all extremities, Cranial Nerves grossly intact to confrontation, speech clear Skin: No rashes Results Reviewed: LAB RESULTS: Lab 07/25/25 0617 07/24/25 0403 SODIUM 140 138 POTASSIUM 5.2 6.3* CHLORIDE 109* 107 CO2 20.4* 22.2 ANION GAP 10.6 8.8 BUN 27.2* 29.3* CREATININE 1.02 1.35* EGFR 78.6 56.1* GLUCOSE 89 115* CALCIUM 9.1 8.8 Brief Urine Lab Results (Last result in the past 365 days) Color Clarity Blood Leuk Est Nitrite Protein CREAT Urine HCG 07/14/25 005 Yellow Clear Trace Moderate (2+) Negative 30 mg/dL (1+) Microbiology Results Abnormal Procedure Component Value - Date/Time Urine Culture - Urine, Indwelling Urethral Catheter [[id number]] (Abnormal) Collected: 07/14/2552 Lab Status: Final result Specimen: Urine from Indwelling Urethral Catheter Updated: 07/15/25 1329 Urine Culture Yeast isolated Narrative: No further workup for yeast Colonization of the urinary tract without infection is common. Treatment is discouraged unless the patient is symptomatic, , or undergoing an invasive urologic procedure. Urine Culture - Urine, Indwelling Urethral Catheter [[id number]] (Abnormal) (Susceptibility) Collected: 06/25/252000 Lab Status: Final result Specimen: Urine from Indwelling Urethral Catheter Updated: 06/30/25 1001 Urine Culture >100,000 CFU/mL Proteus mirabilis Narrative: Colonization of the urinary tract without infection is common. Treatment is discouraged unless the patient is symptomatic, , or undergoing an invasive urologic procedure. Susceptibility Proteus mirabilis MURRAY Amoxicillin + Clavulanate Susceptible Ampicillin Resistant Ampicillin + Sulbactam Intermediate Cefazolin (Urine) Resistant Cefepime Resistant Ceftazidime Susceptible Ceftriaxone Resistant Cefuroxime axetil Resistant Ciprofloxacin Resistant Gentamicin Susceptible Levofloxacin Resistant Nitrofurantoin Resistant Piperacillin + Tazobactam Susceptible Trimethoprim + Sulfamethoxazole Resistant Blood Culture - Blood, Hand, Right [[id number]] (Abnormal) (Susceptibility) Collected: 06/25/25 2030 Lab Status: Edited Result - FINAL Specimen: Blood from Hand, Right Updated: 06/29/25 0713 Blood Culture Enterococcus faecium Comment: Infectious disease consultation is highly recommended. Isolated from Anaerobic Bottle Gram Stain Anaerobic Bottle Gram positive cocci in chains Narrative: Less than seven (7) mL's of blood was collected. Insufficient quantity may yield false negative results. requested linezolid & daptomycin 06/28/25 Susceptibility Enterococcus faecium MRURAY Method Not Specified Ampicillin Susceptible Daptomycin Susceptible dose dependent Gentamicin High Level Synergy Susceptible Linezolid Susceptible (C) [1] Vancomycin Susceptible [1] Appended report. These results have been appended to a previously final verified report. Wound Culture - Swab, Foot, Left [[id number]] (Abnormal) (Susceptibility) Collected: 06/25/25 1818 Lab Status: Final result Specimen: Swab from Foot, Left Updated: 06/29/25 0645 Wound Culture Heavy growth (4+) Staphylococcus aureus, MRSA Comment: Methicillin resistant Staphylococcus aureus, Patient may be an isolation risk. Moderate growth (3+) Morganella morganii ssp morganii Moderate growth (3+) Proteus mirabilis ESBL Comment: Consider infectious disease consult. Susceptibility results may not correlate to clinical outcomes. Gram Stain Few (2+) WBCs seen Few (2+) Gram positive cocci in pairs, chains and clusters Few (2+) Gram negative bacilli Susceptibility Staphylococcus aureus, MRSA MURRAY Clindamycin Susceptible Erythromycin Resistant Oxacillin Resistant Rifampin Susceptible Tetracycline Susceptible Trimethoprim + Sulfamethoxazole Resistant Vancomycin Susceptible Susceptibility Morganella morganii ssp morganii MURRAY Method Not Specified Amoxicillin + Clavulanate Resistant Ampicillin Resistant Ampicillin + Sulbactam Resistant Cefazolin (Non Urine) Resistant Cefepime Susceptible Cefotaxime Susceptible Ceftazidime Susceptible Cefuroxime axetil Resistant Ciprofloxacin Resistant Gentamicin Susceptible Levofloxacin Resistant Piperacillin + Tazobactam Susceptible Tetracycline Susceptible Trimethoprim + Sulfamethoxazole Resistant Susceptibility Proteus mirabilis ESBL MURRAY Ciprofloxacin Resistant Ertapenem Susceptible Levofloxacin Resistant Meropenem Susceptible Tetracycline Resistant Trimethoprim + Sulfamethoxazole Resistant Susceptibility Comments Morganella morganii ssp morganii Cefotaxime susceptibility can be used as a surrogate for ceftriaxone susceptibility Proteus mirabilis ESBL With the exception of urinary-sourced infections, aminoglycosides should not be used as monotherapy. Blood Culture ID, PCR - Blood, Hand, Right [[id number]] (Abnormal) Collected: 06/25/252029 Lab Status: Final result Specimen: Blood from Hand, Right Updated: 06/26/252101 BCID, PCR Enterococcus faecium. Zee/B (vancomycin resistance gene) not detected. Identification byBCID2 PCR. BOTTLE TYPE Anaerobic Bottle Narrative: Infectious disease consultation is highly recommended to rule out distant foci of infection. MRSA Screen, PCR (Inpatient) - Swab, Nares [[id number]] (Abnormal) Collected: 06/26/2545 Lab Status: Final result Specimen: Swab from Nares Updated: 06/26/2550 MRSA PCR Positive Narrative: The negative predictive value of this diagnostic test is high and should only be used to consider de-escalating anti-MRSA therapy. A positive result may indicate colonization with MRSA and must be correlated clinically. Gastrointestinal Panel, PCR - Stool, Per Rectum [[id number]] (Abnormal) Collected: 06/26/2545 Lab Status: Final result Specimen: Stool from Per Rectum Updated: 06/26/25 0850 Campylobacter Not Detected Plesiomonas shigelloides Not Detected Salmonella Not Detected Vibrio Not Detected Vibrio cholerae Not Detected Yersinia enterocolitica Not Detected Enteroaggregative E. coli (EAEC) Not Detected Enteropathogenic E. coli (EPEC) Not Detected Enterotoxigenic E. coli (ETEC) lt/st Not Detected Shiga-like toxin-producing E. coli (STEC) stx1/stx2 Not Detected Shigella/Enteroinvasive E. coli (EIEC) Not Detected Cryptosporidium Not Detected Cyclospora cayetanensis Not Detected Entamoeba histolytica Not Detected Giardia lamblia Not Detected Adenovirus F40/41 Not Detected Astrovirus Not Detected Norovirus GI/GII Detected Comment: If a positive Norovirus result is inconsistent with clinical presentation, the positive Norovirus result should be confirmed using another method. Rotavirus A Not Detected Sapovirus (I, II, IV or V) Not Detected Clostridioides difficile Toxin - Stool, Per Rectum [[id number]] (Abnormal) Collected: 06/26/2545 Lab Status: Final result Specimen: Stool from Per Rectum Updated: 06/26/25754 Narrative: The following orders were created for panel order Clostridioides difficile Toxin - Stool, Per Rectum. Procedure Abnormality Status --------- ------ Clostridioides difficile...[[id number]] Abnormal Final result Please view results for these tests on the individual orders. Clostridioides difficile Toxin, PCR - Stool, Per Rectum [[id number]] (Abnormal) Collected: 06/26/2545 Lab Status: Final result Specimen: Stool from Per Rectum Updated: 06/26/25754 Toxigenic C. difficile by PCR Detected Narrative: DNA from a toxigenic strain of C.difficile has been detected. CT Head Without Contrast Result Date: 07/28/2025 CT HEAD WO CONTRAST Date of Exam: 07/28/2025 7:18 PM EST Indication: fall, hit head. Comparison: 07/03/2025 Technique: Axial CT images were obtained of the head without contrast administration. Automated exposure control and iterative construction methods were used. Findings: No intracranial hemorrhage. Gutierrez-white matter differentiation is maintained without evidence of an acute infarction. Multiple foci of decreased attenuation are present within the subcortical, deep cerebral, and periventricular white matter consistent with chronic small vessel/microangiopathic ischemic changes. No extra-axial mass or collection. The ventricles and sulci are prominent commensurate with involutional changes. The posterior fossa appears grossly normal. Sellar and suprasellar structures are normal. Orbital and periorbital soft tissues are normal. The paranasal sinuses, ethmoid air cells, and mastoid aircells are aerated. The bony calvarium is intact. Impression: Impression: No acute intracranial pathology. Electronically Signed: Feliciano Garcia MD 07/28/2025 7:43 PM EST Workstation ID: [id number] Results for orders placed during the hospital [...] PT/OT/ ST Therapy Plans Current medications: Scheduled Meds:acetaminophen, 1,000 mg, Oral, Q8H apixaban, 5 mg, Oral, BID vitamin C, 500 mg, Oral, Daily baclofen, 5 mg, Oral, Q12H carvedilol, 3.125 mg, Oral, BID With Meals clopidogrel, 75 mg, Oral, Daily famotidine, 20 mg, Oral, BID AC finasteride, 5 mg, Oral, Daily folic acid, 1 mg, Oral, Daily gabapentin, 400 mg, Oral, Q8H insulin glargine, 22 Units, Subcutaneous, Nightly insulin lispro, 2-7 Units, Subcutaneous, TID With Meals lamoTRIgine, 100 mg, Oral, Daily lamoTRIgine, 250 mg, Oral, Nightly methenamine, 1 g, Oral, BID With Meals multivitamin with minerals, 1 tablet, Oral, Daily oxyCODONE, 10 mg, Oral, Q4H thiamine, 100 mg, Oral, Daily vancomycin, 125 mg, Oral, Daily Followed by [START ON 08/01/2025] vancomycin, 125 mg, Oral, Weekly ziprasidone, 20 mg, Oral, Nightly Or ziprasidone, 10 mg, Intramuscular, Nightly Continuous Infusions: PRN Meds:. aluminum-magnesium hydroxide-simethicone benzonatate senna-docusate sodium AND polyethylene glycol AND bisacodyl AND bisacodyl dextrose dextrose diphenhydrAMINE-zinc acetate glucagon (human recombinant) influenza vaccine ipratropium-albuterol ondansetron oxyCODONE ziprasidone Assessment & Plan Assessment & Plan Active Hospital Problems Diagnosis POA Wound infection [T14.8XXA, L08.9] Unknown Acute UTI (urinary tract infection) [N39.0] Yes Diarrhea of presumed infectious origin [R19.7] Yes Acute on chronic blood loss anemia [D62] Yes BPH without obstruction/lower urinary tract symptoms [N40.0] Yes GERD without esophagitis [K21.9] Yes Bilateral inguinal hernia [K40.20] Yes Gastroenteritis due to norovirus [A08.11] Yes Cellulitis [L03.90] Yes Type 2 diabetes mellitus, with long-term current use of insulin [E11.9, Z79.4] Not Applicable PAD (peripheral artery disease) [I73.9] Yes Coronary artery disease involving [place] coronary artery of [place] heart without angina pectoris [I25.10] Yes Seizure disorder [G40.909] Yes Primary hypertension [I10] Yes Resolved Hospital Problems No resolved problems to display. Brief Hospital Course to date: Trung Pool is a 70yoM with PMH significant for HTN, HLD, CAD s/p stenting, PAD s/p R BKA and prior LLE revascularization and toe amputations, recurrent LLE cellulitis / wound infections, chronicpain / peripheral neuropathy, insulin- dependent DMII, chronic urinary retention with De Los Santos catheter, seizure disorder with history of pseudoseizures, obesity and chronic debility. Last admitted to [facility] 06/02-06/11/25 for LLE cellulitis with failure of outpatient treatment. Wound cultures grew Proteus and concern for ESBL per lab and MRSA. He completed 7 days of IV abx prior to DC home. He has declined LLE amputation He returned to [facility] ED on 06/25/25 for evaluation of hematuria, L foot drainage, diarrhea and fatigue. Found to have Norovirus and Enterococcus bacteremia. Hospital course complicated by hospital delirium on 07/14 Hospital-acquired delirium - waxing and waning - neurology follows - currently Ox3. Some intermittent situation confusion/ forgetfulness per sister - geodon nightly/ prn not used LLE Wound Infection w/Cellulitis Severe PAD History of right BKA, LLE revascularization and toe amputation Enterococcus faecium bacteremia - MRI L foot showed edema in the distal first and second metatarsal diaphyses at the resection margins, osteomyelitis not excluded. CT angio left lower extremity revealed moderate focal narrowing at the junction of the SFA and the popliteal artery. 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 - LLE arterial dopplers with abnormal waveforms suggest inflow disease. Moderate 60% stenosis in the left SFA, the left CHIP appears to be occluded filling via collaterals retrograde - Blood cultures positive for Enterococcus faecium - ID/Dr. Andres following - s/p antibiotic therapy - Vascular surgery consulted - follows with Dr. Marcano. He is s/p LLE excisional debridement and wound VAC application on 07/03/25. - PT wound care following, patient self removed his wound vac on 07/22, currently PT wound care not planning to replace it - Continue Plavix / Eliquis - Palliative Care follows, patient now appears agreeable to Hospice care. - increased oxycodone. Hyperkalemia - Potassium of 6.2 07/11 - s/p lokelma - refused further dosing of lokelma. Continue to hold entresto Acute CAUTI and hematuria, POA History of BPH Chronic urinary retention with chronic De [place] catheter - Urine culture grew Yeast - H&H stable, resumed Eliquis 07/07 - Urology consulted - recommend continue De Los Santos and finasteride. - Needs OP referral to urology at [place] for long-term management pending [facility] - continue methenamine Diarrhea Norovirus / C. Diff colonization - GI PCR panel with norovirus, C. difficile toxin is positive but antigen negative suggest colonization - CT imaging suggestive of proctitis - oral vancomycin taper until 08/01 Acute on Chronic anemia, possible blood loss - Continue to monitor H&H, stable, resumed eliqius - Transfuse PRBC if hemoglobin <7 Type 2 diabetes Transient hypoglycemia - Previously well-controlled with A1c 7.6 (08/2024), A1c 7.82 Seizure disorder History of pseudoseizures - Continue lamotrigine - Seizure like activity noted upon awaking from procedure on 07/03. Aborted with propofol and versed. My partner discussed with general neurology over the phone. Recommended PRN ativan for now and outpatient follow up with Dr. Anand as seizures are likely 2/2 anesthesia/procedure. S/p EEG. If seizure like activity recurs while inpatient, recommended loading with 1g of Keppra and placing general neurology consult. - No recurrence of pseudoseizure GERD without Esophagitis - continue pepcid Bilateral Inguinal Hernia, incidental finding on CT - CT imaging revealed bilateral inguinal hernias, larger on the left containing a partial loop of sigmoid colon, without proximal dilatation. - General surgery consult; recommend watchful waiting, poor operative candidate for an elective procedure while asymptomatic, and has signed off GOC: - patient agree able to Hospice care. Service following for LTC placement ?. Patient desires to keep medication the same, however no further aggressive measures/ procedures Expected Discharge Location and Transportation: Expected Discharge Expected Discharge Date: 07/30/2025; Expected Discharge Time: VTE Prophylaxis: Pharmacologic VTE prophylaxis orders are present. AM-PAC 6 Clicks Score (PT): 11 (07/29/252126) CODE STATUS: Code Status and Medical Interventions: No CPR (Do Not Attempt to Resuscitate); Comfort Measures Ordered at: 07/25/25 1024 Code Status (Patient has no pulse and is not breathing): No CPR (Do Not Attempt to Resuscitate) Medical Interventions (Patient has pulse or is breathing): Comfort Measures Level Of Support Discussed With: Patient Health Care Surrogate Carolina Sargent II, DO 07/30/25 1115 Physical Therapy Notes (most recent note) Duglas Mayes, PT at 07/27/25 1504 Version 1 of 1 Acute Care - Wound/Debridement Treatment Note Abdullahi Patient Name: Trung Pool : 1955 Today's Date: 07/27/2025 Admit Date: 06/25/2025 Visit Dx: ICD-10-CM ICD-9-CM 1. Cellulitis of left lower extremity L03.116 682.6 2. Hematuria, unspecified type R31.9 599.70 3. Urinary tract infection associated with indwelling urethral catheter, initial encounter T83.578F015.64 N39.0 599.0 4. Diarrhea, unspecified type R19.7 787.91 5. PAD (peripheral artery disease) I73.9 443.9 6. Wound infection T14.8XXA 958.3 L08.9 7. Critical limb ischemia of left lower extremity I70.222 440.22 Patient Active Problem List Diagnosis Acute deep [...] traumatic brain injury Possible meningioma Moderate malnutrition Seizure disorder Adrenal insufficiency Dysphagia Pressure injury of buttock, stage 1 Pressure ulcers of skin of multiple topographic sites Cellulitis of left foot Gangrene History of DVT (deep vein thrombosis) Severe sepsis Hx of migraine headaches Coronary artery disease involving [place] coronary artery of [place] heart without angina pectoris Left leg cellulitis Altered mental status PAD (peripheral artery disease) Wound infection Type 2 diabetes mellitus with diabetic peripheral angiopathy without gangrene, without long-term current use of insulin Mixed hyperlipidemia S/P AKA (above knee amputation), right CHARLIE (acute kidney injury) Type 2 diabetes mellitus, with long-term current use of insulin Arteriovenous fistula, acquired Cellulitis Acute UTI (urinary tract infection) Diarrhea of presumed infectious origin Acute on chronic blood loss anemia BPH without obstruction/lower urinary tract symptoms GERD without esophagitis Bilateral inguinal hernia Gastroenteritis due to norovirus Past Medical History: Diagnosis Date Anemia Cellulitis Diabetes mellitus Frequent falls History of DVT (deep vein thrombosis) Hyperlipidemia Hypertension Migraines Myocardial infarction Peripheral neuropathy Pneumonia Spinal stenosis Wears dentures FULL Wears glasses Past Surgical History: Procedure Laterality Date ABOVE KNEE AMPUTATION Right AMPUTATION DIGIT Left 01/28/2024 Procedure: SECOND AND THIRD TOE AMPUTATION LEFT; Surgeon: Cecil Buenrostro Jr., MD; Location: [facility]; Service: Orthopedics; Laterality: Left; ANTERIOR CERVICAL DISCECTOMY W/ FUSION Bilateral 07/17/2020 Procedure: Cervical discectomy anterior with fusion C3-4; Surgeon: Tyree Tan MD; Location:[facility]; Service: Neurosurgery; Laterality: Bilateral; AORTOGRAM N/A 01/26/2024 Procedure: ABDOMINAL AORTIC ANGIOGRAM, LLE ANGIOGRAM, LEFT ANTERIOR TIBIAL ATHERECTOMY, LEFT ANTERIOR TIBIAL ANGIOPLASTY; Surgeon: Archie Olvera MD; Location: [facility]; Service: Vascular; Laterality: N/A; CONTRAST: 50 ML, FT: 2 MIN 54 SEC, DOSE: 66 MGY. AORTOGRAM Left 07/03/2025 Procedure: ARTERIOGRAM LOWER EXTREMITY; Surgeon: Vaughn Hollingsworth DO; Location: [facility]; Service: Vascular; Laterality: Left; FT-6MINS 24SEC 140 MGY CONTRAST -15ML BACK SURGERY FOR DISC HERNIATION CARDIAC CATHETERIZATION CARDIAC CATHETERIZATION N/A 09/04/2024 Procedure: Peripheral angiography - Left lower extremity angio - Right femoral access; Surgeon: Jared Marcano MD; Location: [facility] INVASIVE LOCATION; Service: Peripheral Vascular; Laterality: N/A; CORONARY ANGIOPLASTY WITH STENT PLACEMENT stent x 1 INCISION AND DRAINAGE FOOT Left 06/17/2023 Procedure: LEFT FOOT DEBRIDEMENT WOUND VACUUM ASSISTED CLOSURE; Surgeon: Cecil Buenrostro Jr., MD;Location: [facility]; Service: Orthopedics; Laterality: Left; INCISION AND DRAINAGE LEG Left 07/25/2023 Procedure: INCISION AND DRAINAGE HEEL, WOUND VAC; Surgeon: Cecil Buenrostro Jr., MD; Location: [facility]; Service: Orthopedics; Laterality: Left; INCISION AND DRAINAGE LEG Left 07/03/2025 Procedure: DEBRIDEMENT WOUND, PLACEMENT OF WOUND VAC; Surgeon: Vaughn Hollingsworth DO; Location: [facility]; Service: Vascular; Laterality: Left; INTERVENTIONAL RADIOLOGY PROCEDURE N/A 05/02/2019 Procedure: IVC FILTER PLACEMENT; Surgeon: Pedro Zapien MD; Location: [facility] CATH INVASIVE LOCATION; Service: Interventional Radiology INTERVENTIONAL RADIOLOGY PROCEDURE Left 09/07/2024 Procedure: LEFT peroneal arteriovenous fistula embolization - Right femoral access; Surgeon: Jared Marcano MD; Location: [facility] CATH INVASIVE LOCATION; Service: Cardiovascular; Laterality: Left; Please coordinate with Gautam Patel ([facility] [phone] who will bring coils LUMBAR DISCECTOMY N/A 05/03/2019 Procedure: THORACIC LAMINECTOMY T11-12; Surgeon: Tyree Tan MD; Location: [facility]; Service: Neurosurgery Wound 01/28/24 Left anterior second toe Incision (Active) Dressing Appearance intact;moist drainage 07/27/25 144 Dressing Removed Type foam 07/27/25 144 Confirmed Empty Wound Bed Yes, visual inspection of wound bed 07/27/251444 Closure Unable to assess 07/26/251944 Base moist;pink;red;slough 07/27/25 144 Periwound intact;dry 07/27/25 144 Periwound Temperature warm 07/27/25 144 Periwound Skin Turgor soft 07/27/25 144 Edges irregular 07/27/25 144 Drainage Characteristics/Odor serosanguineous 07/27/25 144 Drainage Amount scant 07/27/25 144 Care, Wound irrigated with;wound cleanser;debrided 07/27/25 144 Dressing Care dressing changed;foam;low-adherent;silver impregnated 07/27/25 144 Periwound Care cleansed with pH balanced cleanser 07/27/251444 Wound Left posterior heel (Active) Dressing Appearance intact 07/27/251444 Dressing Removed Type foam;silver impregnated 07/27/251444 Confirmed Empty Wound Bed Yes, visual inspection of wound bed 07/27/251444 Closure Unable to assess 07/26/251944 Base moist;pink 07/27/251444 Periwound intact;dry 07/27/251444 Periwound Temperature warm 07/27/251444 Periwound Skin Turgor soft 07/27/251444 Drainage Characteristics/Odor serosanguineous 07/27/251444 Drainage Amount scant 07/27/251444 Care, Wound irrigated with;wound cleanser;debrided 07/27/251444 Dressing Care foam;low-adherent;silver impregnated 07/27/251444 Periwound Care cleansed with pH balanced cleanser 07/27/251444 Wound 06/26/25 0150 Left medial coccyx Pressure Injury (Active) Dressing Appearance open to air 07/26/251944 Closure Open to air 07/26/25 1800 Base maroon/purple;moist;red 07/26/251944 Drainage Amount none 07/26/251944 Dressing Care silicone border foam 07/26/251944 Periwound Care dry periwound area maintained 07/26/251944 Wound 06/26/25 015 Left posterior greater trochanter Pressure Injury (Active) Dressing Appearance open to air 07/26/251944 Closure Open to air 07/26/251944 Base moist;pink;red 07/26/251944 Periwound excoriated 07/26/251944 Drainage Amount none 07/26/251944 Periwound Care dry periwound area maintained 07/26/251944 Wound 06/26/25 0150 Right posterior greater trochanter Pressure Injury (Active) Dressing Appearance open to air 07/26/251944 Closure Open to air 07/26/251944 Base moist;pink;red 07/26/251944 Periwound excoriated 07/26/251944 Drainage Amount none 07/26/251944 Periwound Care dry periwound area maintained 07/26/251944 Wound 07/24/251910 Right posterior elbow Other (Comment) (Active) Dressing Appearance open to air 07/26/251944 Closure Adhesive bandage 07/26/251944 Base unable to visualize 07/26/25 1800 Periwound Care dry periwound area maintained 07/26/251944 WOUND DEBRIDEMENT Total area of Debridement: ~10cm2 Debridement Site 1 Location- Site 1: LLE Selective Debridement- Site 1: Wound Surface <20cmsq Instruments- Site 1: tweezers Excised Tissue Description- Site 1: minimum, slough Bleeding- Site 1: none PT Assessment (Last 12 Hours) PT Evaluation and Treatment Row Name 07/27/25 1445 Physical Therapy Time and Intention Subjective Information complains of;weakness;fatigue - Document Type therapy note (daily note);wound care - Mode of Treatment individual therapy;physical therapy - Row Name 07/27/25 1445 Pain Scale: FACES Pre/Post-Treatment Pain: FACES Scale, Pretreatment 0-->no hurt -MF Posttreatment Pain Rating 0-->no hurt -MF Row Name Wound 06/26/25 0150 Left medial coccyx Pressure Injury Wound - Properties Group Placement Date: 06/26/25 Placement Time: 0150 -EW Present on Original Admission: Y -EW Side: Left -EW Orientation: medial -EW Location: coccyx -EW Primary Wound Type: Pressure Inj -EW Retired Wound - Properties Group Placement Date: 06/26/25 Placement Time: 0150 -EW Present on Original Admission: Y -EW Side: Left -EW Orientation: medial -EW Location: coccyx -EW Retired Wound - Properties Group Placement Date: 06/26/25 Placement Time: 0150 -EW Present on Original Admission: Y -EW Side: Left -EW Orientation: medial -EW Location: coccyx -EW Retired Wound - Properties Group Date first assessed: 06/26/25 - Time first assessed: 0150 -EW Present on Original Admission: Y -EW Side: Left -EW Location: coccyx -EW Row Name Wound 06/26/25 0150 Left posterior greater trochanter Pressure Injury Wound - Properties Group Placement Date: 06/26/25 Placement Time: 0150 -EW Present on Original Admission: Y -EW Side: Left -EW Orientation: posterior -EW Location: greater trochanter -EW Primary Wound Type: Pressure Inj -EW Retired Wound - Properties Group Placement Date: 06/26/25 Placement Time: 0150 -EW Present on Original Admission: Y -EW Side: Left -EW Orientation: posterior -EW Location: greater trochanter -EW Retired Wound - Properties Group Placement Date: 06/26/25 Placement Time: 0150 -EW Present on Original Admission: Y -EW Side: Left -EW Orientation: posterior -EW Location: greater trochanter -EW Retired Wound - Properties Group Date first assessed: 06/26/25 Time first assessed: 0150 - Present on Original Admission: Y -EW Side: Left -EW Location: greater trochanter -EW Row Name Wound 06/26/25 0150 Right posterior greater trochanter Pressure Injury Wound - Properties Group Placement Date: 06/26/25 Placement Time: 0150 - Present on Original Admission: Y -EW Side: Right -EW Orientation: posterior -EW Location: greater trochanter -EW PrimaryWound Type: Pressure Inj -EW Retired Wound - Properties Group Placement Date: 06/26/25 Placement Time: 0150 -EW Present on Original Admission: Y -EW Side: Right -EW Orientation: posterior -EW Location: greater trochanter -EW Retired Wound - Properties Group Placement Date: 06/26/25 Placement Time: 0150 -EW Present on Original Admission: Y -EW Side: Right -EW Orientation: posterior -EW Location: greater trochanter -EW Retired Wound - Properties Group Date first assessed: 06/26/25 Time first assessed: 0150 -EW Present on Original Admission: Y -EW Side: Right -EW Location: greater trochanter -EW Row Name 07/27/25 1445 Wound Left posterior heel Wound - Properties Group Present on Original Admission: Y -MR Side: Left -MR Orientation: posterior-MR Location: heel -MR Primary Wound Type: Pressure inj -MR Dressing Appearance intact -MF Dressing Removed Type foam;silver impregnated -MF Confirmed Empty Wound Bed Yes, visual inspection of wound bed -MF Base moist;pink -MF Periwound intact;dry -MF Periwound Temperature warm -MF Periwound Skin Turgor soft -MF Drainage Characteristics/Odor serosanguineous -MF Drainage Amount scant -MF Care, Wound irrigated with;wound cleanser;debrided nonsel jd -MF Dressing Care foam;low-adherent;silver impregnated -MF Periwound Care cleansed with pH balanced cleanser - Retired Wound - Properties Group Present on Original Admission: Y -MR Side: Left -MR Orientation: posterior -MR Location: heel -MR Primary Wound Type: Pressure inj -MR Retired Wound - Properties Group Present on Original Admission: Y -MR Side: Left -MR Orientation: posterior -MR Location: heel -MR Primary Wound Type: Pressure inj -MR Retired Wound - Properties Group Present on Original Admission: Y -MR Side: Left -MR Location: heel-MR Primary Wound Type: Pressure inj -MR Row Name 07/27/25 1445 Wound 01/28/24 Left anterior second toe Incision Wound - Properties Group Placement Date: 01/28/24 -MJ Present on Original Admission: N -MJ Side: Left -MJ Orientation: anterior -MJ Location: second toe - MJ Primary Wound Type: Incision -MJ Dressing Appearance intact;moist drainage -MF Dressing Removed Type foam - Confirmed Empty Wound Bed Yes, visual inspection of wound bed -MF Base moist;pink;red;slough -MF Periwound intact;dry - Periwound Temperature warm - Periwound Skin Turgor soft -MF Edges irregular - Drainage Characteristics/Odor serosanguineous - Drainage Amount scant -MF Care, Wound irrigated with;wound cleanser;debrided nonsel jd with gauze -MF Dressing Care dressing changed;foam;low-adherent;silver impregnated - Periwound Care cleansed with pH balanced cleanser - Retired Wound - Properties Group Placement Date: 01/28/24 -MJ Present on Original Admission: N -MJ Side: Left -MJ Orientation: anterior -MJ Location: second toe -MJ Primary Wound Type: Incision -MJ Retired Wound - Properties Group Placement Date: 01/28/24 -MJ Present on Original Admission: N -MJ Side: Left -MJ Orientation: anterior -MJ Location: second toe -MJ Primary Wound Type: Incision -MJ Retired Wound - Properties Group Date first assessed: 01/28/24 -MJ Present on Original Admission: N-MJ Side: Left -MJ Location: second toe -MJ Primary Wound Type: Incision -MJ Row Name Wound 07/24/251910 Right posterior elbow Other (Comment) Wound - Properties Group Placement Date: 07/24/25 -SB Placement Time: 1910 -SB Present on Original Admission: N -SB Side: Right -SB Orientation: posterior -SB Location: elbow -SB Primary Wound Type: Other -SB Secondary Wound Type - Other: -- -SB, SKIN TEAR Additional Comments: SKIN TEAR from rubbing his arm on the mattress while confused. -SB Retired Wound - Properties Group Placement Date: 07/24/25 -SB Placement Time: 1910 -SB Present on Original Admission: N -SB Side: Right -SB Orientation: posterior -SB Location: elbow -SB Additional Comments: SKIN TEAR from rubbing his arm on the mattress while confused. -SB Retired Wound - Properties Group Placement Date: 07/24/25 -SB Placement Time: 1910 -SB Present on Original Admission: N -SB Side: Right -SB Orientation: posterior -SB Location: elbow -SB Additional Comments: SKIN TEAR from rubbing his arm on the mattress while confused. -SB Retired Wound - Properties Group Date first assessed: 07/24/25 -SB Time first assessed: 1910 -SB Present on Original Admission: N -SB Side: Right -SB Location: elbow -SB Additional Comments: SKIN TEAR from rubbing his arm on the mattress while confused. -SB Row Name NPWT (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 Wound Therapy) 07/03/25 LEFT FOOT NPWT (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 Wound Therapy) - Properties Group Placement Date: 07/03/25 -RS Location: LEFT FOOT -RS Additional Comments: PER MD CLARKE REYNOSO 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) - Properties Group Placement Date: 07/03/25 -RS Location: LEFT FOOT -RS Additional Comments: PER MD CLARKE REYNOSO 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) - Properties Group Placement Date: 07/03/25 -RS Location: LEFT FOOT -RS Additional Comments: PER MD CLARKE REYNOSO [place] NPWT (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 Wound Therapy) - Properties Group Placement Date: 07/03/25 -RS Location: LEFT FOOT -RS Additional Comments: PER MD CLARKE REYNOSO Row Name 07/27/25 9333 Coping Observed Emotional State calm;cooperative - Verbalized Emotional State acceptance - Trust Relationship/Rapport care explained - Row Name 07/27/25 1447 Plan of Care Review Plan of Care Reviewed With patient - Outcome Evaluation foot and heel wound dressings changed with good improvement noted overall. mild reepithelialization of wound edges noted today with dressin change. PT will cont with mepilex Ag foam changes every 3-4 days to help further improve healing potential, while limiting discomfort. -MF Row Name 07/27/25 1445 Positioning and Restraints Pre-Treatment Position in bed -MF Post Treatment Position bed -MF In Bed sitting EOB;call light within reach -MF User Llanes (r) = Recorded By, (t) = Taken By, (c) = Cosigned By Initials Name Provider Type MF Duglas Mayes, PT Physical Therapist MR CharlesMargarita RN Registered Nurse Kristan Giordano RN Registered Nurse Henrietta Blakely, JESSEE Registered Nurse Iggy Thakur, RN Registered Nurse Alessandra Whitaker, RN Registered Nurse Physical Therapy Education Title: PT OT HOMICIDE INVESTIGATOR Therapies (In Progress) Topic: Physical Therapy (In Progress) Point: Mobility training (In Progress) Learning Progress Summary Patient Acceptance, E,TB, NR,NL by at 07/21/2025 1009 Acceptance, E,TB, NR,VU by CH at 07/20/2025 1000 Acceptance, E, NR by KG at 07/18/2025 1520 Acceptance, E, VU by IG at 07/13/2025 1457 Comment: PT POC Acceptance, E, VU by IG at 07/10/2025 1532 Comment: PT POC Acceptance, E, VU by IG at 07/05/2025 1624 Comment: PT POC Acceptance, E, VU,NR by ML at 06/29/2025 0907 Acceptance, E, VU,NR by NS at 06/26/2025 1618 Point: Home exercise program (In Progress) Learning Progress Summary Patient Acceptance, E,TB, NR,NL by CH at 07/21/2025 1009 Acceptance, E,TB, NR,VU by CH at 07/20/2025 1000 Acceptance, E, NR by KG at 07/18/2025 1520 Acceptance, E, VU by IG at 07/13/2025 1457 Comment: PT POC Acceptance, E, VU by IG at 07/10/2025 1532 Comment: PT POC Acceptance, E, VU by IG at 07/05/2025 1624 Comment: PT POC Acceptance, E, VU,NR by NS at 06/26/2025 1618 Point: Body mechanics (In Progress) Learning Progress Summary Patient Acceptance, E,TB, NR,NL by at 07/21/2025 1009 Acceptance, E,TB, NR,VU by CH at 07/20/2025 1000 Acceptance, E, NR by KG at 07/18/2025 1520 Acceptance, E, VU by IG at 07/13/2025 1457 Comment: PT POC Acceptance, E, VU by IG at 07/10/2025 1532 Comment: PT POC Acceptance, E, VU by IG at 07/05/2025 1624 Comment: PT POC Acceptance, E, VU,NR by NS at 06/26/2025 1618 Point: Precautions (In Progress) Learning Progress Summary Patient Acceptance, E,TB, NR,NL by at 07/21/2025 1009 Acceptance, E,TB, NR,VU by CH at 07/20/2025 1000 Acceptance, E, NR by KG at 07/18/2025 1520 Acceptance, E, VU by IG at 07/13/2025 1457 Comment: PT POC Acceptance, E, VU by IG at 07/10/2025 1532 Comment: PT POC Acceptance, E, VU by IG at 07/05/2025 1624 Comment: PT POC Acceptance, E, VU,NR by ML at 06/29/2025 0907 Acceptance, E, VU,NR by NS at 06/26/2025 1618 User Llanes Initials Effective Dates Name Provider Type Discipline 02/26/21 - Shital Costa RN Registered Nurse Nurse 08/25/24 - Lori Rajan Physical Therapist PT NS 02/26/21 - Mirela Hsu PT Physical Therapist PT ML 01/02/21 - Leonie Thomas Physical Therapist PT IG 04/19/25 - Hayden Matias PT Physical Therapist PT Recommendation and Plan Recommended discharge disposition is based on the functional assessment performed by PT/OT/Speech therapy (as applicable) and may not reflect the medical necessity determined by your provider or services covered by an individual patient's insurance plan or patient resource. Anticipated Discharge Disposition (PT): inpatient rehabilitation facility Planned Therapy Interventions (PT): balance training, bed mobility training, patient/family education, postural re-education, strengthening, transfer training Therapy Frequency (PT): daily Plan of Care Reviewed With: patient Outcome Evaluation: foot and heel wound dressings changed with good improvement noted overall. mildreepithelialization of wound edges noted today with dressin change. PT will cont with mepilex Ag foam changes every 3-4 days to help further improve healing potential, while limiting discomfort. Plan of Care Reviewed With: patient Time Calculation PT Charges Row Name 07/27/25 1445 Time Calculation Start Time 1445 -MF PT Goal Re-Cert Due Date 08/04/25 -MF Untimed Charges Wound Care 92821 Non-selective debridement -MF 86139-Wzt-aafobozue debridement 20 -MF Total Minutes Untimed Charges Total Minutes 20 -MF Total Minutes 20 -MF User Llanes (r) = Recorded By, (t) = Taken By, (c) = Cosigned By Initials Name Provider Type Duglas Pathak, PT Physical Therapist PT G-Codes Outcome Measure Options: AM-PAC 6 Clicks Daily Activity (OT) AM-PAC 6 Clicks Score (PT): 11 AM-PAC 6 Clicks Score (OT): 16 Duglas Mayes PT 07/27/2025 1505 Occupational Therapy Notes (most recent note) Shyla Tarango, OT at 07/26/25 0748 Acute Care - Occupational Therapy Discharge [facility] Patient Name: Trung Pool : 1955 Today's Date: 07/26/2025 Admit Date: 06/25/2025 Visit Dx: ICD-10-CM ICD-9-CM 1. Cellulitis of left lower extremity L03.116 682.6 2. Hematuria, unspecified type R31.9 599.70 3. Urinary tract infection associated with indwelling urethral catheter, initial encounter T83.775N814.64 N39.0 599.0 4. Diarrhea, unspecified type R19.7 787.91 5. PAD (peripheral artery disease) I73.9 443.9 6. Wound infection T14.8XXA 958.3 L08.9 7. Critical limb ischemia of left lower extremity I70.222 440.22 Patient Active Problem List Diagnosis Acute deep [...] traumatic brain injury Possible meningioma Moderate malnutrition Seizure disorder Adrenal insufficiency Dysphagia Pressure injury of buttock, stage 1 Pressure ulcers of skin of multiple topographic sites Cellulitis of left foot Gangrene History of DVT (deep vein thrombosis) Severe sepsis Hx of migraine headaches Coronary artery disease involving [place] coronary artery of [place] heart without angina pectoris Left leg cellulitis Altered mental status PAD (peripheral artery disease) Wound infection Type 2 diabetes mellitus with diabetic peripheral angiopathy without gangrene, without long-term current use of insulin Mixed hyperlipidemia S/P AKA (above knee amputation), right CHARLIE (acute kidney injury) Type 2 diabetes mellitus, with long-term current use of insulin Arteriovenous fistula, acquired Cellulitis Acute UTI (urinary tract infection) Diarrhea of presumed infectious origin Acute on chronic blood loss anemia BPH without obstruction/lower urinary tract symptoms GERD without esophagitis Bilateral inguinal hernia Gastroenteritis due to norovirus Past Medical History: Diagnosis Date Anemia Cellulitis [...] 2 MIN 54 SEC, DOSE: 66 MGY. AORTOGRAM Left 07/03/2025 Procedure: ARTERIOGRAM LOWER EXTREMITY; Surgeon: Vaughn Hollingsworth DO; Location: [facility]; Service: Vascular; Laterality: Left; FT-6MINS 24SEC 140 MGY CONTRAST -15ML BACK SURGERY FOR DISC HERNIATION CARDIAC CATHETERIZATION CARDIAC CATHETERIZATION N/A 09/04/2024 Procedure: Peripheral angiography - Left lower extremity angio - Right femoral access; Surgeon: Jared Marcano MD; Location: [facility]; Service: Peripheral Vascular; Laterality: N/A; CORONARY ANGIOPLASTY WITH STENT PLACEMENT stent x 1 INCISION AND DRAINAGE FOOT Left 06/17/2023 Procedure: LEFT FOOT DEBRIDEMENT WOUND VACUUM ASSISTED CLOSURE; Surgeon: Cecil Buenrostro Jr., MD;Location: [facility]; Service: Orthopedics; Laterality: Left; INCISION AND DRAINAGE LEG Left 07/25/2023 Procedure: INCISION AND DRAINAGE HEEL, WOUND VAC; Surgeon: Cecil Buenrostro Jr., MD; Location: [facility]; Service: Orthopedics; Laterality: Left; INCISION AND DRAINAGE LEG Left 07/03/2025 Procedure: DEBRIDEMENT WOUND, PLACEMENT OF WOUND VAC; Surgeon: Vaughn Hollingsworth DO; Location: [facility]; Service: Vascular; Laterality: Left; INTERVENTIONAL RADIOLOGY PROCEDURE N/A 05/02/2019 Procedure: IVC FILTER PLACEMENT; Surgeon: Pedro Zapien MD; Location: [facility]; Service: Interventional Radiology INTERVENTIONAL RADIOLOGY PROCEDURE Left 09/07/2024 Procedure: LEFT peroneal arteriovenous fistula embolization - Right femoral access; Surgeon: Jared Marcano MD; Location: [facility]; Service: Cardiovascular; Laterality: Left; Please coordinate with Gautam Patel ([facility]) [phone] who will bring coils LUMBAR DISCECTOMY N/A 05/03/2019 Procedure: THORACIC LAMINECTOMY T11-12; Surgeon: Tyree Tan MD; Location: [facility]; Service: Neurosurgery General Information Row Name 07/26/25 0744 OT Time and Intention Document Type discharge evaluation/summary Simultaneous filing. User may be unaware of other data. - Mode of Treatment occupational therapy Simultaneous filing. User may be unaware of other data. - User Llanes (r) = Recorded By, (t) = Taken By, (c) = Cosigned By Initials Name Provider Type CH Shyla Tarango, OT Occupational Therapist Mobility/ADL's No documentation. Obj/Interventions No documentation. Goals/Plan Row Name 07/26/25 0746 Bed Mobility Goal 1 (OT) Activity/Assistive Device (Bed Mobility Goal 1, OT) rolling to left;rolling to right;sit to supine/supine to sit -CH Osteen Level/Cues Needed (Bed Mobility Goal 1, OT) minimum assist (75% or more patient effort);verbal cues required;nonverbal cues (demo/gesture) required;moderate assist (50-74% patient effort) -CH Progress/Outcomes (Bed Mobility Goal 1, OT) medical status inhibited participation;medical status inhibiting progress;goal no longer appropriate -CH Row Name 07/26/2503 Transfer Goal 1 (OT) Activity/Assistive Device (Transfer Goal 1, OT) [id number] -CH Osteen Level/Cues Needed (Transfer Goal 1, OT) moderate assist (50-74% patient effort) -CH Progress/Outcome (Transfer Goal 1, OT) medical status inhibiting progress;medical status inhibited participation;goal no longer appropriate -CH Row Name 07/26/2587 Bathing Goal 1 (OT) Activity/Device (Bathing Goal 1, OT) upper body bathing -CH Osteen Level/Cues Needed (Bathing Goal 1, OT) minimum assist (75% or more patient effort);set-up required -CH Progress/Outcomes (Bathing Goal 1, OT) medical status inhibiting progress;medical status inhibited participation;goal no longer appropriate -CH Row Name 07/26/2590 Dressing Goal 1 (OT) Activity/Device (Dressing Goal 1, OT) upper body dressing;lower body dressing -CH Osteen/Cues Needed (Dressing Goal 1, OT) standby assist -CH Time Frame (Dressing Goal 1, OT) short term goal (STG);4 days -CH Strategies/Barriers (Dressing Goal 1, OT) sitting EOB -CH Progress/Outcome (Dressing Goal 1, OT) medical status inhibiting progress;medical status inhibited participation;goal no longer appropriate -CH Row Name 07/26/2542 Grooming Goal 1 (OT) Activity/Device (Grooming Goal 1, OT) oral care;wash face, hands -CH Osteen (Grooming Goal 1, OT) set-up required -CH Strategies/Barriers (Grooming Goal 1, OT) sitting EOB with good dynamic sitting balance -CH Progress/Outcome (Grooming Goal 1, OT) medical status inhibiting progress;medical status inhibited participation;goal no longer appropriate -CH Row Name 11/13/25 0746 Strength Goal 1 (OT) Strength Goal 1 (OT) Pt. will completed UE and core TE with progressive reps and resistance to support ADL and transfer independence. - Progress/Outcome (Strength Goal 1, OT) goal no longer appropriate;medical status inhibiting progress;medical status inhibited participation - User Llanes (r) = Recorded By, (t) = Taken By, (c) = Cosigned By Initials Name Provider Type Shyla Monreal, SOCO Occupational Therapist Clinical Impression Row Name 07/26/25 0746 Plan of Care Review Outcome Evaluation Pt transitioning to comfort measures, will discontinue OT consult. - User Llanes (r) = Recorded By, (t) = Taken By, (c) = Cosigned By Initials Name Provider Type Shyla Monreal OT Occupational Therapist Outcome Measures Row Name 07/25/252042 How much help from another person do you currently need... Turning from your back to your side while in flat bed without using bedrails? 3 -MC Moving from lying on back to sitting on the side of a flat bed without bedrails? 2 -MC Moving to and from a bed to a chair (including a wheelchair)? 2 -MC Standing up from a chair using your arms (e.g., wheelchair, bedside chair)? 2 -MC Climbing 3-5 steps with a railing? 1 -MC To walk in hospital room? 1 -MC AM-PAC 6 Clicks Score (PT) 11 -MC Highest Level of Mobility Goal Move to Chair/Commode-4 -MC User Llanes (r) = Recorded By, (t) = Taken By, (c) = Cosigned By Initials Name Provider Type Guerita Butterfield RN Registered Nurse OT Recommendation and Plan Recommended discharge disposition is based on the functional assessment performed by PT/OT/Speech therapy (as applicable) and may not reflect the medical necessity determined by your provider or services covered by an individual patient's insurance plan or patient resource. Plan of Care Review Plan of Care Reviewed With: patient Progress: no change Outcome Evaluation: Pt transitioning to comfort measures, will discontinue OT consult. Plan of Care Reviewed With: patient Outcome Evaluation: Pt transitioning to comfort measures, will discontinue OT consult. Time Calculation: OT Discharge Summary Anticipated Discharge Disposition (OT): intermediate facility Shyla Tarango OT 07/26/2025 0748 * Monalisa Reilly RN - 07/27/2025 12:52 PM EST Images from the original note were not included. Case Management Monalisa Reilly RN [phone] Trung Pool (70 y.o. 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), ESBL (06/06/25), C.difficile (06/26/25) Code Status: No CPR Ht: 182.9 cm (72 ) Wt: 116 kg (256 lb) Admission Cmt: None Principal Problem: Wound infection [T14.8XXA,L08.9] Active Insurance as of 06/25/2025 Primary Coverage Payor Plan Insurance Group Employer/Plan Group [employer] [place] [employer] REPLACEMENT [facility] MEDICARE ADVANTAGE PPO Payor Plan Address Payor Plan Phone Number Payor Plan Fax Number Effective Dates [address] [address] 01/12/2024 - None Entered [facility] [id number] Subscriber Name Subscriber Date Member ID TRUNG POOL MICHELLE 1955 [id number] Emergency Contacts Brand Communications Manager (Rel.) Home Phone Work Phone Mobile Phone Zhane Salazar (Sister) [phone] -- [phone] History & Physical Amanda Bermudez MD at 06/25/25 9888 [facility] Medicine Services HISTORY AND PHYSICAL Patient Name: Trung Pool : 1955 Primary Care Physician: Gustavo Mehta MD Date of admission: 06/25/2025 Subjective Subjective Chief Complaint: Blood in urine, foot draining, fatigue, diarrhea since last Wednesday HPI: Trung Pool is a 70 y.o. male male with of CAD, PAD, Type 2 diabetes and history of right leg BKA amputation who presents to the emergency department with self-reported blood in his urine, left foot stump drainage, fatigue, and diarrhea. The patient reports having blood in his urine with associated bad odor. He has been experiencing severe fatigue. He has had diarrhea since last Wednesday, for which his primary care doctor prescribed medication that provided some relief. His last bowel movement was yesterday and remained watery despite treatment. Regarding his left leg, he reports that his foot has been throbbing and burning for approximately the last 6 months. He notes increased redness of the leg compared to usual and reports fluid leakage from the foot stump area. The foot was described as draining real bad. He states he can feel the area but it does not hurt. He does not follow with a vascular surgeon. The patient has Type 2 diabetes and uses an insulin pen nightly before bed. He did not take his insulin before coming to the hospital. He quit smoking 15 years ago and has not consumed alcohol for a long time. He uses plant brownies for pain and nausea management. He lives independently and uses an electric wheelchair for mobility. Home health services began visiting 3 days per week starting one week ago. Personal History Past Medical History: Diagnosis Date Anemia Cellulitis Diabetes mellitus Frequent falls History of DVT (deep vein thrombosis) Hyperlipidemia Hypertension Migraines Myocardial infarction Peripheral neuropathy Pneumonia Spinal stenosis Wears dentures FULL Wears glasses Past Surgical History: Procedure Laterality Date ABOVE KNEE AMPUTATION Right AMPUTATION DIGIT Left 01/28/2024 Procedure: SECOND AND THIRD TOE AMPUTATION LEFT; Surgeon: Cecil Buenrostro Jr., MD; Location: [facility]; Service: Orthopedics; Laterality: Left; ANTERIOR CERVICAL DISCECTOMY W/ FUSION Bilateral 07/17/2020 Procedure: Cervical discectomy anterior with fusion C3-4; Surgeon: Tyree Tan MD; Location:[facility]; Service: Neurosurgery; Laterality: Bilateral; AORTOGRAM N/A 01/26/2024 Procedure: ABDOMINAL AORTIC ANGIOGRAM, LLE ANGIOGRAM, LEFT ANTERIOR TIBIAL ATHERECTOMY, LEFT ANTERIOR TIBIAL ANGIOPLASTY; Surgeon: Archie Olvera MD; Location: [facility]; Service: Vascular; Laterality: N/A; CONTRAST: [...] Laterality: Left; Please coordinate with Gautam Patel ([facility] [phone] who will bring coils LUMBAR DISCECTOMY N/A 05/03/2019 Procedure: THORACIC LAMINECTOMY T11-12; Surgeon: Tyree Tan MD; Location: [facility]; Service: Neurosurgery Family History: family history [...] minerals, ondansetron, pantoprazole, sacubitril-valsartan, and vitamin C Allergies[1] Objective Objective Vital Signs: Temp: [98.3 ??F (36.8 ??C)] 98.3 ??F (36.8 ??C) Heart Rate: [56-84] 77 Resp: [12-18] 17 BP: (108-157)/(50-90) 157/90 Physical Exam Vitals reviewed. Constitutional: General: He is not in acute distress. Appearance: Normal appearance. He is obese. HENT: Head: Normocephalic and atraumatic. Right Ear: External ear normal. Left Ear: External ear normal. Nose: Nose normal. Mouth/Throat: Mouth: Mucous membranes are dry. Eyes: General: No scleral icterus. Extraocular Movements: Extraocular movements intact. Pupils: Pupils are equal, round, and reactive to light. Cardiovascular: Rate and Rhythm: Normal rate and regular rhythm. Pulses: Normal pulses. Heart sounds: Normal heart sounds. No murmur heard. Pulmonary: Effort: Pulmonary effort is normal. No respiratory distress. Breath sounds: Normal breath sounds. No stridor. No wheezing. Abdominal: General: Bowel sounds are normal. There is no distension. Palpations: Abdomen is soft. Tenderness: There is abdominal tenderness. There is no guarding. Hernia: A hernia is present. Comments: Tenderness in left lower quadrant Genitourinary: Comments: De Los Santos in place Musculoskeletal: General: Deformity present. No swelling. Cervical back: Normal range of motion and neck supple. Comments: R BKA L transmetatarsal amputation Skin: General: Skin is warm and dry. Capillary Refill: Capillary refill takes less than 2 seconds. Coloration: Skin is not jaundiced. Findings: Erythema and lesion present. Comments: 2 to 3 cm ulceration on the dorsal aspect left foot stump; yellow in color Left lower extremity is dry, flaky, and erythematous Neurological: General: No focal deficit present. Mental Status: He is alert and oriented to person, place, and time. Cranial Nerves: No cranial nerve deficit. Sensory: Sensory deficit present. Motor: Weakness present. Gait: Gait abnormal. Psychiatric: Mood and Affect: Mood normal. Behavior: Behavior normal. Thought Content: Thought content normal. Result Review: I have personally reviewed the results from the time of this admission to 06/26/2025 00:11 EDT and agree with these findings: [x] Laboratory list / accordion [x] Microbiology [x] Radiology [x] EKG/Telemetry [] Cardiology/Vascular [] Pathology [x] Old records [] Other: Most notable findings include: LAB RESULTS: Lab 06/25/251816 WBC 9.96 HEMOGLOBIN 8.9* HEMATOCRIT 29.8* PLATELETS 281 NEUTROS ABS 7.05* IMMATURE GRANS (ABS) 0.05 LYMPHS ABS 1.48 MONOS ABS 1.01* EOS ABS 0.32 MCV 76.2* CRP 4.34* PROCALCITONIN 0.12 LACTATE 1.7 Lab 06/25/251816 SODIUM 138 POTASSIUM 4.4 CHLORIDE 106 CO2 21.2* ANION GAP 10.8 BUN 27.3* CREATININE 1.21 EGFR 64.0 GLUCOSE 173* CALCIUM 8.3* Lab 06/25/251816 TOTAL PROTEIN 7.2 ALBUMIN 3.2* GLOBULIN 4.0 ALT (SGPT) 14 AST (SGOT) 15 BILIRUBIN 0.2 ALK PHOS 127* UA 06/02/2025 12:31 06/25/2025 20:01 Urinalysis Squamous Epithelial Cells, UA Unable to determine due to loaded field 0-2 Specific [place], UA 1.019 1.011 Ketones, UA Negative Negative Blood, UA Large (3+) Large (3+) Leukocytes, UA Large (3+) Large (3+) Nitrite, UA Positive Positive RBC, UA Too Numerous to Count 6-10 WBC, UA Too Numerous to Count Too Numerous to Count Bacteria, UA 4+ 4+ Microbiology Results (last 10 days) Procedure Component Value - Date/Time Wound Culture - Swab, Foot, Left [[id number]] Collected: 06/25/251817 Lab Status: Preliminary result Specimen: Swab from Foot, Left Updated: 06/25/252205 Gram Stain Few (2+) WBCs seen Few (2+) Gram positive cocci in pairs, chains and clusters Few (2+) Gram negative bacilli CT Abdomen Pelvis With Contrast Addendum Date: 06/25/2025 ADDENDUM #1 IVC filter is present on imaging study. It is recommended that all patients with IVC filters in place have an active management care plan to monitor their IVC filter. If a care plan is not in place, patient should have a non emergent referral to an interventional specialist such as interventional radiology or other interventional vascular specialist for establishment of an IVC filter management care plan. Electronically Signed: Nehemias Ferraro 06/25/2025 9:53 PM EDT Workstation ID: [id number] ORIGINAL REPORT: CT ABDOMEN PELVIS W CONTRAST Date of Exam: 06/25/2025 7:05 PM EDT Indication:Diarrhea, hematuria, abdominal discomfort. Comparison: 06/02/2025 Technique: Axial CT images were obt ained of the abdomen and pelvis following the uneventful intravenous administration of iodinated contrast. Reconstructed coronal and sagittal images were also obtained. Automated exposure control anditerative construction methods were used. Findings: Calcific atherosclerosis of the coronary arteries. No pleural or pericardial effusion. No suspicious infiltrate in the lower lungs. No definite ectopic bowel gas. No splenomegaly or suspicious splenic lesion. No suspicious hepatic abnormality. No definite acute biliary abnormality. No suspicious splenic or pancreatic abnormality. Aorta appears normal in caliber. There is calcific atherosclerosis of the aorta and branch vessels. IVC filter is present, as before. Lymph nodes do not appear significantly enlarged. Probable small bilateral upper pole renal cysts. There is expected excretion of contrast from the kidneys. No hydronephrosis. No dilated small bowel loops. No definite acute gastric abnormality. Small fat-containing umbilical hernia. There are bilateral inguinal hernias. Smaller right inguinal hernia contains fat. Larger left inguinal hernia contains a partial loop of sigmoid colon. No proximal dilatation. The appendix appears within normal limits. No definite findings of acute colonic inflammation. The bladder is moderately distended. Small amount of gas is present in the bladder, as before. Bladder wall thickening appearsmildly decreased since the prior exam. Prostate does not appear significantly enlarged. [place] catheter balloon and tip appears to terminate in the proximal penile urethra. There is some questionable wall thickening of the distal rectum. No other definite perirectal abnormality. There appears to be mild asymmetric prominence of the left inguinal lymph nodes. Severe left and moderate right hip osteoarthritis. Advanced degenerative changes in the lumbar spine. Mild chronic T11 and T12 height loss,as before. There is ankylosis at the sacroiliac joints. No visualized aggressive osseous lesion. Impression: 1.[place] catheter balloon and tip appear to terminate in the proximal penile urethra. Recommend repositioning. 2.Moderate distention of the bladder with small amount of gas in the bladder, asbefore. Bladder wall thickening appears mildly decreased since the prior exam. Correlate with urinalysis. 3.Questionable wall thickening of the distal rectum. Correlate for symptoms of proctitis. 4.Bilateral inguinal hernias, larger on the left containing a partial loop of sigmoid colon. No proximal dilatation. 5.Mild asymmetric prominence of the left inguinal lymph nodes, likely reactive. Clinical follow-up recommended. 6.Calcific atherosclerosis. The ordering provider was notified of the results by Dr. Ferraro at 06/25/2025 7:54 PM EDT. Electronically Signed: Nehemias Ferraro 06/25/2025 7:55 PM EDT Workstation ID: [id number] Result Date: 06/25/2025 CT ABDOMEN PELVIS W CONTRAST Date of Exam: 06/25/2025 7:05 PM EDT Indication: Diarrhea, hematuria, abdominal discomfort. Comparison: 06/02/2025 Technique: Axial CT images were obtained of the abdomen and pelvis following the uneventful intravenous administration of iodinated contrast. Reconstructed coronal and sagittal images were also obtained. Automated exposure control and iterative construction methods were used. Findings: Calcific atherosclerosis of the coronary arteries. No pleural or pericardial effusion. No suspicious infiltrate in the lower lungs. No definite ectopic bowel gas. No splenomegaly or suspicious splenic lesion. No suspicious hepatic abnormality. No definite acute biliary abnormality. No suspicious splenic or pancreatic abnormality. Aorta appears normal in caliber. There is calcific atherosclerosis of the aorta and branch vessels. IVC filter is present, as before. Lymph nodes do not appear significantly enlarged. Probable small bilateral upper pole renal cysts. There is expected excretion of contrast from the kidneys. No hydronephrosis. No dilated small bowel loops. No definite acute gastric abnormality. Small fat- containing umbilical hernia. There are bilateralinguinal hernias. Smaller right inguinal hernia contains fat. Larger left inguinal hernia contains a partial loop of sigmoid colon. No proximal dilatation. The appendix appears within normal limits. No definite findings of acute colonic inflammation. The bladder is moderately distended. Small amount of gas is present in the bladder, as before. Bladder wall thickening appears mildly decreased since the prior exam. Prostate does not appear significantly enlarged. [place] catheter balloon and tip appears to terminate in the proximal penile urethra. There is some questionable wall thickening of thedistal rectum. No other definite perirectal abnormality. There appears to be mild asymmetric prominence of the left inguinal lymph nodes. Severe left and moderate right hip osteoarthritis. Advanced degenerative changes in the lumbar spine. Mild chronic T11 and T12 height loss, as before. There is ankylosis at the sacroiliac joints. No visualized aggressive osseous lesion. Impression: Impression: 1.[place] catheter balloon and tip appear to terminate in the proximal penileurethra. Recommend repositioning. 2.Moderate distention of the bladder with small amount of gas in the bladder, as before. Bladder wall thickening appears mildly decreased since the prior exam. Correlate with urinalysis. 3.Questionable wall thickening of the distal rectum. Correlate for symptoms ofproctitis. 4.Bilateral inguinal hernias, larger on the left containing a partial loop of sigmoid colon. No proximal dilatation. 5.Mild asymmetric prominence of the left inguinal lymph nodes, likely reactive. Clinical follow-up recommended. 6.Calcific atherosclerosis. The ordering provider was notified of the results by Dr. Ferraro at 06/25/2025 7:54 PM EDT. Electronically Signed: Nehemias Ferraro 06/25/2025 7:55 PM EDT Workstation ID: [id number] XR Foot 3+ View Left Result Date: 06/25/2025 XR FOOT 3+ VW LEFT Date of Exam: 06/25/2025 6:15 PM EDT Indication: diabetic ulcer. Comparison: August 2024 Findings: Bones are grossly osteopenic. There is marked soft tissue swelling overlying dorsum of the foot and at the stump distal to the metatarsal ray resection sites. There is shallow soft tissue ulceration at the dorsum of the foot distally. 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 There is dense vascular calcification noted. Impression: Impression: Marked soft tissue swelling at the stump and dorsum of the foot suggest cellulitis.. Small shallow soft tissue ulceration distal dorsum of the foot No acute osseous abnormality. If there is concern for osteomyelitis MRI is recommended. Electronically Signed: Duglas Lay MD 06/25/2025 7:03 PM EDT Workstation ID: [id number] Results for orders placed during the hospital encounter of 08/31/24 Adult Transthoracic Echo Complete W/ Cont if Necessary Per Protocol 09/12/2024 4:10 PM Interpretation Summary Left ventricular systolic function is normal. Calculated left ventricular EF = 52.5% There is a trivial pericardial effusion. The aortic valve exhibits sclerosis. Mitral annular calcification is present. Assessment & Plan Assessment & Plan Severe sepsis PAD (peripheral artery disease) Cellulitis Acute UTI (urinary tract infection) Primary hypertension Seizure disorder Coronary artery disease involving [place] coronary artery of [place] heart without angina pectoris Type 2 diabetes mellitus, with long-term current use of insulin Diarrhea of presumed infectious origin Acute on chronic blood loss anemia BPH without obstruction/lower urinary tract symptoms GERD without esophagitis Bilateral inguinal hernia Mr. Trung Pool is a male with Type 2 diabetes, PAD and history of right leg amputation who presents with hematuria, infected foot drainage, diarrhea since last Wednesday, and fatigue.The left foot showing signs of cellulitis with increased redness, fluid drainage, and throbbing pain over the past 6 months in the setting of previous amputation due to gangrene raises concern for recurrent infection or vascular compromise. Given the patient's diabetic history and previous gangrene, there is significant risk for serious soft tissue infection requiring aggressive antibiotic treatment and vascular surgery evaluation.The combination of multiple active infections, diabetes management issues (patient d id not take insulin before arrival), and recent need for home health services indicates complex medical needs requiring inpatient management. Severe sepsis multiple sources include: LLE cellulitis and UTI rule out infectious diarrhea History of recurrent left lower extremity cellulitis and wounds - Admit to medicine with telemetry monitoring -Initiate sepsis protocol: IV fluids, IV empiric antibiotics: Daptomycin and Zosyn; trend lactate, procal, urine studies, blood cultures; check CXR -Fluid management: IV fluid sepsis bolus: 2.8L IV maintenance fluids: 75cc/hr x 24hrs -Consult to wound care for left lower extremity limb assessment --Obtain EKG, check cardiac enzymes --Prior urine Cx 06/02: Positive for Proteus ESBL and E. Coli Consult infectious disease in the morning for antibiotic guidance -Acute diarrhea: Check GI PCR panel if further episodes and C. Difficile -De Los Santos catheter in place -CT abd scan: Moderate distention of the bladder with small amount of gas in the bladder, as before. Bladder wall thickening, Questionable wall thickening of the distal rectum. Correlate for symptomsof proctitis. - Pulmonary toilet: Incentive spirometer, OPEP, duonebs 2. Severe PAD Hx of Right BKA; LLE revascularization and toes amputation -Imaging: CTA angio LLE to assess anatomy of arterial system for presence of plaque or clots -Check LLE arterial Doppler to assess blood flow and venous duplex to rule out VTE. -Check MRI to assess for osteomyelitis -pulse checks with dopplers -Pain management: IV morphine, resume home dose gabapentin and baclofen -Resume Plavix holding Eliquis due to self-reported hematuria - Mobility: Patient is wheelchair-bound and lives alone PT/OT eval consult to case management regarding placement --Consult vascular surgery in morning 3. T2DM -last A1C 7.6 (-2023) - Insulin sliding scale while inpatient glucose checks every 6 hours -Basal insulin dose: 56 units - Repeat A1c and lipid panel with a.m. labs 4. Acute on chronic anemia --H/H 8.06/11 MCV 76 patient reported hematuria in the ER -UA+ RBC and blood Continue to monitor closely off home dose Eliquis- holding off anticoagulationovernight - Type and screen transfuse for hemoglobin less than 7g/dL 5. HTN Hx of CAD - Resume home dose Coreg + plavix + Entresto 6. GERD BPH -continue PPI - Continue home dose finasteride 7. History of seizure disorder - Continue home dose lamotrigine 8. Bilateral inguinal hernias - Incidental finding on CT: Bilateral inguinal hernias, larger on the left containing a partial loop of sigmoid colon. - Consult to general surgeon in the morning Total time spent: 45 minutes Time spent includes time reviewing chart, [id number]-[id number] time, counseling patient/family/caregiver, ordering medications/tests/procedures, communicating with other health healthcare specialist, documenting clinical information in the electronic health record, and coordination of care. VTE Prophylaxis: Pharmacologic VTE prophylaxis orders are signed & held. CODE STATUS: Code Status and Medical Interventions: CPR (Attempt to Resuscitate); Full Support Ordered at: 06/25/25 0100 Code Status (Patient has no pulse and is not breathing): CPR (Attempt to Resuscitate) Medical Interventions (Patient has pulse or is breathing): Full Support Level Of Support Discussed With: Patient Expected Discharge Expected Discharge Date: 06/27/2025; Expected Discharge Time: Amanda Bermudez MD 06/26/25 [1] Allergies Allergen Reactions Keppra [Levetiracetam] Other (See Comments) Acute psychosis Bupropion Unknown (See Comments) Codeine Nausea Only Hydrocodone Unknown (See Comments) Ketorolac Tromethamine Unknown (See Comments) [id number] Talisha Resendez APRN Nurse Practitioner Palliative Care Progress Notes Signed Date of Service: 07/25/25 1013 Creation Time: 07/25/25 1013 Signed Show:Clear all [x]Written[x]Templated[x]Copied Added by: [x]Talisha Resendez APRN []Luanver for details Palliative Care Daily Progress Note C/C: Patient in restraints due to agitation, awake. S: Medical record reviewed. Follow-up visit for GOC and symptom management. Events noted. Patient more awake, sister at bedside to discuss GOC with patient. Patient oriented to self, required reorientation to location. RN reports patient having difficulty swallowing pill this morning, concern for aspiration. ROS: Denies pain, nausea, shortness of breath. ROS limited by AMS. O: Code Status: Code Status and Medical Interventions: No CPR (Do Not Attempt to Resuscitate); Comfort Measures Ordered at: 07/25/25 1024 Code Status (Patient has no pulse and is not breathing): No CPR (Do Not Attempt to Resuscitate) Medical Interventions (Patient has pulse or is breathing): Comfort Measures Level Of Support Discussed With: Patient Health Care Surrogate Advanced Directives: Advance Directive Status: Patient has advance directive, copy in chart Goals of Care: Ongoing. Palliative Performance Scale Score: 30% BP 170/92 (BP Location: Right arm, Patient Position: Lying) Pulse 87 Temp 97.7 ??F (36.5 ??C) (Oral) Resp 18 Ht 182.9 cm (72 ) Wt 116 kg (256 lb) SpO2 96% BMI 34.72 kg/m?? Intake/Output Summary (Last 24 hours) at 07/25/2025 1025 Last data filed at 07/25/2025 0854 Gross per 24 hour Intake 100 ml Output 1200 ml Net -1100 ml PE: General Appearance: Patient lying in bed, awake, alert, chronically ill appearing, cooperative, NAD HEENT: NC/AT, MMM, face relaxed Neck: supple, trachea midline, no JVD Lungs: CTA bilat, diminished in bases; respirations regular, even and unlabored; RR 16-18 on exam, on RA Heart: RRR, normal S1 and S2, no M/R/G Abdomen: Normal bowel sounds, soft, nontender, nondistended G/U: Deferred MSK/Extremities: RBKA, LLE with all toes amputated, bilateral wrist restraints in place Pulses: Pulses palpable and equal bilaterally Skin: Warm, dry Neurologic: Alert, awake, oriented x1-2 Psych: calm Meds: Reviewed and changes noted Labs: Results from last 7 days Lab Units 07/20/25 0508 WBC 10*3/mm3 6.74 HEMOGLOBIN g/dL 9.6* HEMATOCRIT % 30.3* PLATELETS 10*3/mm3 228 Results from last 7 days Lab Units 07/25/25 0617 SODIUM mmol/L 140 POTASSIUM mmol/L 5.2 CHLORIDE mmol/L 109* CO2 mmol/L 20.4* BUN mg/dL 27.2* CREATININE mg/dL 1.02 GLUCOSE mg/dL 89 CALCIUM mg/dL 9.1 Results from last 7 days Lab Units 07/25/25 0617 SODIUM mmol/L 140 POTASSIUM mmol/L 5.2 CHLORIDE mmol/L 109* CO2 mmol/L 20.4* BUN mg/dL 27.2* CREATININE mg/dL 1.02 CALCIUM mg/dL 9.1 GLUCOSE mg/dL 89 Imaging Results (Last 72 Hours) No results found for the last 72 hours. Diagnostics: Reviewed A: Wound infection Primary hypertension Seizure disorder Coronary artery disease involving [place] coronary artery of [place] heart without angina pectoris PAD (peripheral artery disease) Type 2 diabetes mellitus, with long-term current use of insulin Cellulitis Acute UTI (urinary tract infection) Diarrhea of presumed infectious origin Acute on chronic blood loss anemia BPH without obstruction/lower urinary tract symptoms GERD without esophagitis Bilateral inguinal hernia Gastroenteritis due to norovirus 70 y.o. male with seizure disorder, CAD, PAD, T2DM, UTI, anemia, GERD, cellulitis, pain. S/S: Pain -LLE cellulitis, MSK back pain - Gabapentin 400mg PO q 8 hours -Baclofen 5mg PO q 12 hours - Oxycodone 10mg PO q 6 hours scheduled and q 4 hours prn moderate pain -Tylenol 1000mg PO q 8 hours scheduled 2. Debility -power chair assist at baseline 3. Nausea -resolved 4. GOC -Comfort measures -per discussion with patient and sisterZhane -he confirms that his sister is HCS, confirms code status -reviewed symptoms and medications -ongoing full treatment 07/06: Reviewed options for DNR/DNI in light of serious illness, reviewed continuing IV antibioticsversus stopping and electing hospice services. Patient considering options and is appreciative of information. Will follow up on Wednesday. 07/10: Patient refused medications overnight, however is in agreement with continuing his medications/antibiotics and labs. He declines medications for depression as he has expressed feelings of hopelessness. Reviewed options, he is still considering. 07/17: Patient reports feeling better overall. He is awaiting placement for rehab. He reports pain controlled on current regimen. 07/24: Patient requiring restraints due to agitation. Neurology follow and adjusting medications. Attempted to call at 1240pm, no answer, voicemail left with Palliative Office Number. Call back received at 1420 from , reviewed patient's change in mental status and condition. Reviewed current interventions and concern for patient decline. Plan to meet tomorrow (07/25) at 10am at bedside with sister in order to discuss GOC. Discussed with Dr. Reynolds and Shara Bermudez APRN Neurology. 07/25: Met with sister, Zhane, at bedside and patient. Patient disoriented to location, he does participate in GOC discussion and states he wants hospice services, is in agreement with comfort measures. Reviewed no further labs, no further IV antibiotics, no further restraints, discussed symptom management throughout end of life. He would like to get closer to home with hospice services. Will consult hospice. Sister supportive and in agreement with comfort focused plan of care. Discussed with Dr. Ridley. P: Follow up visit. Patient able to participate in GOC discussion with sister ([facility]) at bedside. rTung is able to state that he wants a comfort focused plan of care with hospice services. Sister, as HCS, in agreement. Will consult hospice to assist in disposition. Palliative Care Team will continue to follow patient. Please do not hesitate to contact us regarding further sx mgmt or GOC needs. Talisha Resendez APRN 07/25/2025 Time spent: 30 minutes Ju Gonzalez APRN Nurse Practitioner Medicine Progress Notes Signed Date of Service: 07/26/25 1019 Creation Time: 07/26/25 1019 Signed Expand All Collapse All[]Expand All by Default Show:Clear all [x]Written[x]Templated[x]Copied Added by: [x]Ju Gonzalez APRN []Arianne for details [facility] Medicine Services PROGRESS NOTE Patient Name: Trung Pool : 1955 Date of Admission: 06/25/2025 Primary Care Physician: Gustavo Mehta MD Subjective CC: f/u LLE HPI: Patient up in bed. Pain controlled currently. States he took all medication today. Wants to proceedwith outpatient Hospice and hopeful to go to [facility]. Wants to continue all medication for now. Objective Vital Signs: Temp: [97.6 ??F (36.4 ??C)-98 ??F (36.7 ??C)] 98 ??F (36.7 ??C) Heart Rate: [84-113] 87 Resp: [18] 18 BP: (136-166)/(60-94) 143/78 Physical Exam: Constitutional: No acute distress, awake, alert, smiling upright in bed HENT: NCAT, mucous membranes moist Respiratory: Clear to auscultation bilaterally, respiratory effort normal Cardiovascular: RRR Gastrointestinal: Positive bowel sounds, soft, nontender, nondistended Musculoskeletal:Right AKA, LLE bandage in place and clean Psychiatric: Appropriate affect, cooperative Neurologic: Oriented x 3, PEREZ, speech clear Skin: No rashes Results Reviewed: LAB RESULTS: Lab 07/20/25 0508 WBC 6.74 HEMOGLOBIN 9.6* HEMATOCRIT 30.3* PLATELETS 228 MCV 78.3* Lab 07/25/25 0617 07/24/25 0403 07/23/25 0442 07/20/25 0508 SODIUM 140 138 137 136 POTASSIUM 5.2 6.3* 5.8* 5.0 CHLORIDE 109* 107 105 107 CO2 20.4* 22.2 21.8* 19.5* ANION GAP 10.6 8.8 10.2 9.5 BUN 27.2* 29.3* 20.3 22.6 CREATININE 1.02 1.35* 0.94 0.81 EGFR 78.6 56.1* 86.7 94.3 GLUCOSE 89 115* 104* 90 CALCIUM 9.1 8.8 9.3 8.7 Brief Urine Lab Results (Last result in the past 365 days) Color Clarity Blood Leuk Est Nitrite Protein CREAT Urine HCG 07/14/2552 Yellow Clear Trace Moderate (2+) Negative 30 mg/dL (1+) Microbiology Results Abnormal Procedure Component Value - Date/Time Urine Culture - Urine, Indwelling Urethral Catheter [[id number]] (Abnormal) Collected: 07/14/2552 Lab Status: Final result Specimen: Urine from Indwelling Urethral Catheter Updated: 07/15/25 1329 Urine Culture Yeast isolated Narrative: No further workup for yeast Colonization of the urinary tract without infection is common. Treatment is discouraged unless the patient is symptomatic, , or undergoing an invasive urologic procedure. Urine Culture - Urine, Indwelling Urethral Catheter [[id number]] (Abnormal) (Susceptibility) Collected: 06/25/252000 Lab Status: Final result Specimen: Urine from Indwelling Urethral Catheter Updated: 06/30/25 1001 Urine Culture >100,000 CFU/mL Proteus mirabilis Narrative: Colonization of the urinary tract without infection is common. Treatment is discouraged unless the patient is symptomatic, , or undergoing an invasive urologic procedure. Susceptibility Proteus mirabilis MURRAY Amoxicillin + Clavulanate Susceptible Ampicillin Resistant Ampicillin + Sulbactam Intermediate Cefazolin (Urine) Resistant Cefepime Resistant Ceftazidime Susceptible Ceftriaxone Resistant Cefuroxime axetil Resistant Ciprofloxacin Resistant Gentamicin Susceptible Levofloxacin Resistant Nitrofurantoin Resistant Piperacillin + Tazobactam Susceptible Trimethoprim + Sulfamethoxazole Resistant Blood Culture - Blood, Hand, Right [[id number]] (Abnormal) (Susceptibility) Collected: 06/25/252029 Lab Status: Edited Result - FINAL Specimen: Blood from Hand, Right Updated: 06/29/25 0713 Blood Culture Enterococcus faecium Comment: Infectious disease consultation is highly recommended. Isolated from Anaerobic Bottle Gram Stain Anaerobic Bottle Gram positive cocci in chains Narrative: Less than seven (7) mL's of blood was collected. Insufficient quantity may yield false negative results. requested linezolid & daptomycin 06/28/25 Susceptibility Enterococcus faecium MURRAY Method Not Specified Ampicillin Susceptible Daptomycin Susceptible dose dependent Gentamicin High Level Synergy Susceptible Linezolid Susceptible (C) [1] Vancomycin Susceptible [1] Appended report. These results have been appended to a previously final verified report. Wound Culture - Swab, Foot, Left [[id number]] (Abnormal) (Susceptibility) Collected: 06/25/25 1818 Lab Status: Final result Specimen: Swab from Foot, Left Updated: 06/29/25 0645 Wound Culture Heavy growth (4+) Staphylococcus aureus, MRSA Comment: Methicillin resistant Staphylococcus aureus, Patient may be an isolation risk. Moderate growth (3+) Morganella morganii ssp morganii Moderate growth (3+) Proteus mirabilis ESBL Comment: Consider infectious disease consult. Susceptibility results may not correlate to clinical outcomes. Gram Stain Few (2+) WBCs seen Few (2+) Gram positive cocci in pairs, chains and clusters Few (2+) Gram negative bacilli Susceptibility Staphylococcus aureus, MRSA MURRAY Clindamycin Susceptible Erythromycin Resistant Oxacillin Resistant Rifampin Susceptible Tetracycline Susceptible Trimethoprim + Sulfamethoxazole Resistant Vancomycin Susceptible Susceptibility Morganella morganii ssp morganii MURRAY Method Not Specified Amoxicillin + Clavulanate Resistant Ampicillin Resistant Ampicillin + Sulbactam Resistant Cefazolin (Non Urine) Resistant Cefepime Susceptible Cefotaxime Susceptible Ceftazidime Susceptible Cefuroxime axetil Resistant Ciprofloxacin Resistant Gentamicin Susceptible Levofloxacin Resistant Piperacillin + Tazobactam Susceptible Tetracycline Susceptible Trimethoprim + Sulfamethoxazole Resistant Susceptibility Proteus mirabilis ESBL MURRAY Ciprofloxacin Resistant Ertapenem Susceptible Levofloxacin Resistant Meropenem Susceptible Tetracycline Resistant Trimethoprim + Sulfamethoxazole Resistant Susceptibility Comments Morganella morganii ssp morganii Cefotaxime susceptibility can be used as a surrogate for ceftriaxone susceptibility Proteus mirabilis ESBL With the exception of urinary-sourced infections, aminoglycosides should not be used as monotherapy. Blood Culture ID, PCR - Blood, Hand, Right [[id number]] (Abnormal) Collected: 06/25/25 2030 Lab Status: Final result Specimen: Blood from Hand, Right Updated: 06/26/252101 BCID, PCR Enterococcus faecium. Zee/B (vancomycin resistance gene) not detected. Identification byBCID2 PCR. BOTTLE TYPE Anaerobic Bottle Narrative: Infectious disease consultation is highly recommended to rule out distant foci of infection. MRSA Screen, PCR (Inpatient) - Swab, Nares [[id number]] (Abnormal) Collected: 06/26/25 0046 Lab Status: Final result Specimen: Swab from Nares Updated: 06/26/25 0850 MRSA PCR Positive Narrative: The negative predictive value of this diagnostic test is high and should only be used to consider de-escalating anti-MRSA therapy. A positive result may indicate colonization with MRSA and must be correlated clinically. Gastrointestinal Panel, PCR - Stool, Per Rectum [[id number]] (Abnormal) Collected: 06/26/2545 Lab Status: Final result Specimen: Stool from Per Rectum Updated: 06/26/25849 Campylobacter Not Detected Plesiomonas shigelloides Not Detected Salmonella Not Detected Vibrio Not Detected Vibrio cholerae Not Detected Yersinia enterocolitica Not Detected Enteroaggregative E. coli (EAEC) Not Detected Enteropathogenic E. coli (EPEC) Not Detected Enterotoxigenic E. coli (ETEC) lt/st Not Detected Shiga-like toxin-producing E. coli (STEC) stx1/stx2 Not Detected Shigella/Enteroinvasive E. coli (EIEC) Not Detected Cryptosporidium Not Detected Cyclospora cayetanensis Not Detected Entamoeba histolytica Not Detected Giardia lamblia Not Detected Adenovirus F40/41 Not Detected Astrovirus Not Detected Norovirus GI/GII Detected Comment: If a positive Norovirus result is inconsistent with clinical presentation, the positive Norovirus result should be confirmed using another method. Rotavirus A Not Detected Sapovirus (I, II, IV or V) Not Detected Clostridioides difficile Toxin - Stool, Per Rectum [[id number]] (Abnormal) Collected: 06/26/2545 Lab Status: Final result Specimen: Stool from Per Rectum Updated: 06/26/25754 Narrative: The following orders were created for panel order Clostridioides difficile Toxin - Stool, Per Rectum. Procedure Abnormality Status --------- ------ Clostridioides difficile...[[id number]] Abnormal Final result Please view results for these tests on the individual orders. Clostridioides difficile Toxin, PCR - Stool, Per Rectum [[id number]] (Abnormal) Collected: 06/26/2545 Lab Status: Final result Specimen: Stool from Per Rectum Updated: 06/26/25754 Toxigenic C. difficile by PCR Detected Narrative: DNA from a toxigenic strain of C.difficile has been detected. Radiology results from the last 24 hours: No radiology results from the last 24 hrs Results for orders placed during the hospital encounter of 08/31/24 Adult Transthoracic Echo Complete W/ Cont if Necessary Per Protocol 09/12/2024 4:10 PM Interpretation Summary Left ventricular systolic function is normal. Calculated left ventricular EF = 52.5% There is a trivial pericardial effusion. The aortic valve exhibits sclerosis. Mitral annular calcification is present. Current medications: Scheduled Medication acetaminophen, 1,000 mg, Oral, Q8H apixaban, 5 mg, Oral, BID vitamin C, 500 mg, Oral, Daily baclofen, 5 mg, Oral, Q12H carvedilol, 3.125 mg, Oral, BID With Meals clopidogrel, 75 mg, Oral, Daily famotidine, 20 mg, Oral, BID AC finasteride, 5 mg, Oral, Daily folic acid, 1 mg, Oral, Daily gabapentin, 400 mg, Oral, Q8H insulin glargine, 22 Units, Subcutaneous, Nightly lamoTRIgine, 100 mg, Oral, Daily lamoTRIgine, 250 mg, Oral, Nightly methenamine, 1 g, Oral, BID With Meals multivitamin with minerals, 1 tablet, Oral, Daily oxyCODONE, 10 mg, Oral, Q6H sodium zirconium cyclosilicate, 10 g, Oral, Once thiamine (B-1) IV, 500 mg, Intravenous, Q8H vancomycin, 125 mg, Oral, Daily Followed by [START ON 08/01/2025] vancomycin, 125 mg, Oral, Weekly ziprasidone, 20 mg, Oral, Nightly Or ziprasidone, 10 mg, Intramuscular, Nightly Scheduled Meds: Continuous Infusions: Infusion Medications PRN Medication aluminum-magnesium hydroxide-simethicone benzonatate senna-docusate sodium AND polyethylene glycol AND bisacodyl AND bisacodyl dextrose dextrose diphenhydrAMINE-zinc acetate glucagon (human recombinant) influenza vaccine ipratropium-albuterol ondansetron oxyCODONE ziprasidone PRN Meds:. Assessment & Plan Active Hospital Problems Diagnosis POA Wound infection [T14.8XXA, L08.9] Unknown Acute UTI (urinary tract infection) [N39.0] Yes Diarrhea of presumed infectious origin [R19.7] Yes Acute on chronic blood loss anemia [D62] Yes BPH without obstruction/lower urinary tract symptoms [N40.0] Yes GERD without esophagitis [K21.9] Yes Bilateral inguinal hernia [K40.20] Yes Gastroenteritis due to norovirus [A08.11] Yes Cellulitis [L03.90] Yes Type 2 diabetes mellitus, with long-term current use of insulin [E11.9, Z79.4] Not Applicable PAD (peripheral artery disease) [I73.9] Yes Coronary artery disease involving [place] coronary artery of [place] heart without angina pectoris [I25.10] Yes Seizure disorder [G40.909] Yes Primary hypertension [I10] Yes Resolved Hospital Problems No resolved problems to display. Brief Hospital Course to date: Trung Pool is a 70yoM with PMH significant for HTN, HLD, CAD s/p stenting, PAD s/p R BKA and prior LLE revascularization and toe amputations, recurrent LLE cellulitis / wound infections, chronicpain / peripheral neuropathy, insulin- dependent DMII, chronic urinary retention with De Los Santos catheter, seizure disorder with history of pseudoseizures, obesity and chronic debility. Last admitted to [facility] 06/02-06/11/25 for LLE cellulitis with failure of outpatient treatment. Wound cultures grew Proteus and concern for ESBL per lab and MRSA. He completed 7 days of IV abx prior to DC home. He has declined LLE amputation He returned to [facility] ED on 06/25/25 for evaluation of hematuria, L foot drainage, diarrhea and fatigue. Found to have Norovirus and Enterococcus bacteremia. Hospital course complicated by hospital delirium on 07/14 Hospital-acquired delirium - waxing and waning - neurology follows -Ox3 today- out of restraints - geodon nightly LLE Wound Infection w/Cellulitis Severe PAD History of right BKA, LLE revascularization and toe amputation Enterococcus faecium bacteremia - MRI L foot showed edema in the distal first and second metatarsal diaphyses at the resection margins, osteomyelitis not excluded. CT angio left lower extremity revealed moderate focal narrowing at the junction of the SFA and the popliteal artery. 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 - LLE arterial dopplers with abnormal waveforms suggest inflow disease. Moderate 60% stenosis in the left SFA, the left CHIP appears to be occluded filling via collaterals retrograde - Blood cultures positive for Enterococcus faecium - ID/Dr. Andres following - s/p antibiotic therapy - Vascular surgery consulted - follows with Dr. Marcano. He is s/p LLE excisional debridement and wound VAC application on 07/03/25. - PT wound care following, patient self removed his wound vac on 07/22, currently PT wound care not planning to replace it - Continue Plavix / Eliquis, however intermittently refusing oral meds - Palliative Care follows, patient now appears agreeable to Hospice care. Hyperkalemia - Potassium of 6.2 07/11 - s/p lokelma - refused further dosing of lokelma. Continue to hold entresto Acute CAUTI and hematuria, POA History of BPH Chronic urinary retention with chronic De Los Santos catheter - Urine culture grew Yeast - H&H stable, resumed Eliquis 07/07 - Urology consulted - recommend continue De Los Santos and finasteride. - Needs OP referral to urology at [place] for long-term management pending [facility] Diarrhea Norovirus / C. Diff colonization - GI PCR panel with norovirus, C. difficile toxin is positive but antigen negative suggest colonization - CT imaging suggestive of proctitis - oral vancomycin taper Acute on Chronic anemia, possible blood loss - Continue to monitor H&H, stable, resumed eliqius - Transfuse PRBC if hemoglobin <7 Type 2 diabetes Transient hypoglycemia - Previously well-controlled with A1c 7.6 (08/2024), A1c 7.82 - decrease lantus nightly - glucose reviewed Seizure disorder History of pseudoseizures - Continue lamotrigine - Seizure like activity noted upon awaking from procedure on 07/03. Aborted with propofol and versed. My partner discussed with general neurology over the phone. Recommended PRN ativan for now and outpatient follow up with Dr. Anand as seizures are likely 2/2 anesthesia/procedure. S/p EEG. If seizure like activity recurs while inpatient, recommended loading with 1g of Keppra and placing general neurology consult. - No recurrence of pseudoseizure GERD without Esophagitis - PPI Bilateral Inguinal Hernia, incidental finding on CT - CT imaging revealed bilateral inguinal hernias, larger on the left containing a partial loop of sigmoid colon, without proximal dilatation. - General surgery consult; recommend watchful waiting, poor operative candidate for an elective procedure while asymptomatic, and has signed off GOC: - patient agree able to Hospice care. Service following for LTC placement ?. Patient desires to keep medication the same, however no further aggressive measures/ procedures Expected Discharge Location and Transportation: SNF, TBD. Expected Discharge Expected Discharge Date: 07/30/2025; Expected Discharge Time: VTE Prophylaxis: Pharmacologic VTE prophylaxis orders are present. AM-PAC 6 Clicks Score (PT): 11 (07/25/252042) CODE STATUS: Code Status and Medical Interventions: No CPR (Do Not Attempt to Resuscitate); Comfort Measures Ordered at: 07/25/25 1024 Code Status (Patient has no pulse and is not breathing): No CPR (Do Not Attempt to Resuscitate) Medical Interventions (Patient has pulse or is breathing): Comfort Measures Level Of Support Discussed With: Patient Health Care Surrogate Ju Gonzalez, IZABELLA 07/26/25 * Leonie Thomas - 07/26/2025 7:49 AM EST Patient Name: Trung Pool : 1955 Today's Date: 07/26/2025 Admit Date: 06/25/2025 Visit Dx: ICD-10-CM ICD-9-CM 1. Cellulitis of left lower extremity L03.116 682.6 2. Hematuria, unspecified type R31.9 599.70 3. Urinary tract infection associated with indwelling urethral catheter, initial encounter T83.460P959.64 N39.0 599.0 4. Diarrhea, unspecified type R19.7 787.91 5. PAD (peripheral artery disease) I73.9 443.9 6. Wound infection T14.8XXA 958.3 L08.9 7. Critical limb ischemia of left lower extremity I70.222 440.22 Patient Active Problem List Diagnosis Acute deep [...] traumatic brain injury Possible meningioma Moderate malnutrition Seizure disorder Adrenal insufficiency Dysphagia Pressure injury of buttock, stage 1 Pressure ulcers of skin of multiple topographic sites Cellulitis of left foot Gangrene History of DVT (deep vein thrombosis) Severe sepsis Hx of migraine headaches Coronary artery disease involving [place] coronary artery of [place] heart without angina pectoris Left leg cellulitis Altered mental status PAD (peripheral artery disease) Wound infection Type 2 diabetes mellitus with diabetic peripheral angiopathy without gangrene, without long-term current use of insulin Mixed hyperlipidemia S/P AKA (above knee amputation), right CHARLIE (acute kidney injury) Type 2 diabetes mellitus, with long-term current use of insulin Arteriovenous fistula, acquired Cellulitis Acute UTI (urinary tract infection) Diarrhea of presumed infectious origin Acute on chronic blood loss anemia BPH without obstruction/lower urinary tract symptoms GERD without esophagitis Bilateral inguinal hernia Gastroenteritis due to norovirus Past Medical History: Diagnosis Date Anemia Cellulitis Diabetes mellitus Frequent falls History of DVT (deep vein thrombosis) Hyperlipidemia Hypertension Migraines Myocardial infarction Peripheral neuropathy Pneumonia Spinal stenosis Wears dentures FULL Wears glasses Past Surgical History: Procedure Laterality Date ABOVE KNEE AMPUTATION Right AMPUTATION DIGIT Left 01/28/2024 Procedure: SECOND AND THIRD TOE AMPUTATION LEFT; Surgeon: Cecil Buenrostro Jr., MD; Location: [facility]; Service: Orthopedics; Laterality: Left; ANTERIOR CERVICAL DISCECTOMY W/ FUSION Bilateral 07/17/2020 Procedure: Cervical discectomy anterior with fusion C3-4; Surgeon: Tyree Tan MD; Location: [facility]; Service: Neurosurgery; Laterality: Bilateral; AORTOGRAM N/A 01/26/2024 Procedure: ABDOMINAL AORTIC ANGIOGRAM, LLE ANGIOGRAM, LEFT ANTERIOR TIBIAL ATHERECTOMY, LEFT ANTERIOR TIBIAL ANGIOPLASTY; Surgeon: Archie Olvera MD; Location: [facility]; Service: Vascular; Laterality: N/A; CONTRAST: 50 ML, FT: 2 MIN 54 SEC, DOSE: 66 MGY. AORTOGRAM Left 07/03/2025 Procedure: ARTERIOGRAM LOWER EXTREMITY; Surgeon: Vaughn Hollingsworth DO; Location: [facility]; Service: Vascular; Laterality: Left; FT-6MINS 24SEC 140 MGY CONTRAST -15ML BACK SURGERY FOR DISC HERNIATION CARDIAC CATHETERIZATION [...] VAC; Surgeon: Cecil Buenrostro Jr., MD; Location: [facility]; Service: Orthopedics; Laterality: Left; INCISION AND DRAINAGE LEG Left 07/03/2025 Procedure: DEBRIDEMENT WOUND, PLACEMENT OF WOUND VAC; Surgeon: Vaughn Hollingsworth DO; Location: [facility]; Service: Vascular; Laterality: Left; INTERVENTIONAL RADIOLOGY PROCEDURE N/A 05/02/2019 Procedure: IVC FILTER PLACEMENT; Surgeon: Pedro Zapien MD; Location: [facility]; Service: Interventional Radiology INTERVENTIONAL RADIOLOGY PROCEDURE Left 09/07/2024 Procedure: LEFT peroneal arteriovenous fistula embolization - Right femoral access; Surgeon: Jared Marcano MD; Location: [facility]; Service: Cardiovascular; Laterality: Left; Please coordinate with Gautam Patel ([facility]) [phone] who will bring coils LUMBAR DISCECTOMY N/A 05/03/2019 Procedure: THORACIC LAMINECTOMY T11-12; Surgeon: Tyree Tan MD; Location: [facility]; Service: Neurosurgery General Information Row Name 07/26/25 0745 Physical Therapy Time and Intention Document Type discharge evaluation/summary -ML Mode of Treatment physical therapy -ML Row Name 07/26/25 0745 07/26/25 0744 General Information Patient Profile Reviewed yes -ML yes Simultaneous filing. User may be unaware of other data. -ML User Llanes (r) = Recorded By, (t) = Taken By, (c) = Cosigned By Initials Name Provider Type ML Leonie Thomas Physical Therapist Mobility No documentation. Obj/Interventions No documentation. Goals/Plan Row Name 07/26/25 0748 Bed Mobility Goal 1 (PT) Activity/Assistive Device (Bed Mobility Goal 1, PT) supine to sit;rolling to left;rolling to right -ML Osteen Level/Cues Needed (Bed Mobility Goal 1, PT) independent -ML Progress/Outcomes (Bed Mobility Goal 1, PT) medical status inhibiting progress;goal no longer appropriate -ML Row Name 07/26/25 0748 Transfer Goal 1 (PT) Activity/Assistive Device (Transfer Goal 1, PT) [id number] -ML Osteen Level/Cues Needed (Transfer Goal 1, PT) independent -ML Strategies/Barriers (Transfers Goal 1, PT) w/ slide board or w/o -ML Progress/Outcome (Transfer Goal 1, PT) medical status inhibiting progress;goal no longer appropriate -ML Row Name 07/26/25 0748 Balance Goal 1 (PT) Activity/Assistive Device (Balance Goal) sitting dynamic balance -ML Osteen Level/Cues Needed (Balance Goal 1, PT) supervision required -ML Time Frame (Balance Goal 1, PT) short-term goal (STG);3-5 days -ML Progress/Outcomes (Balance Goal 1, PT) goal no longer appropriate;medical status inhibiting progress -ML User Llanes (r) = Recorded By, (t) = Taken By, (c) = Cosigned By Initials Name Provider Type Leonie Hawthorne Physical Therapist Clinical Impression No documentation. Outcome Measures Row Name 07/25/252042 How much help from another person do you currently need... Turning from your back to your side while in flat bed without using bedrails? 3 -MC Moving from lying on back to sitting on the side of a flat bed without bedrails? 2 -MC Moving to and from a bed to a chair (including a wheelchair)? 2 -MC Standing up from a chair using your arms (e.g., wheelchair, bedside chair)? 2 -MC Climbing 3-5 steps with a railing? 1 -MC To walk in hospital room? 1 -MC AM-PAC 6 Clicks Score (PT) 11 -MC Highest Level of Mobility Goal Move to Chair/Commode-4 -MC User Llanes (r) = Recorded By, (t) = Taken By, (c) = Cosigned By Initials Name Provider Type Guerita Butterfield, JESSEE Registered Nurse Physical Therapy Education Title: PT OT HOMICIDE INVESTIGATOR Therapies (In Progress) Topic: Physical Therapy (In Progress) Point: Mobility training (In Progress) Learning Progress Summary Patient Acceptance, E,TB, NR,NL by at 07/21/2025 1009 Acceptance, E,TB, NR,VU by at 07/20/2025 1000 Acceptance, E, NR by at 07/18/2025 1520 Acceptance, E, VU by IG at 07/13/2025 1457 Comment: PT POC Acceptance, E, VU by IG at 07/10/2025 1532 Comment: PT POC Acceptance, E, VU by IG at 07/05/2025 1624 Comment: PT POC Acceptance, E, VU,NR by ML at 06/29/2025 0907 Acceptance, E, VU,NR by NS at 06/26/2025 1618 Point: Home exercise program (In Progress) Learning Progress Summary Patient Acceptance, E,TB, NR,NL by CH at 07/21/2025 1009 Acceptance, E,TB, NR,VU by CH at 07/20/2025 1000 Acceptance, E, NR by KG at 07/18/2025 1520 Acceptance, E, VU by IG at 07/13/2025 1457 Comment: PT POC Acceptance, E, VU by IG at 07/10/2025 1532 Comment: PT POC Acceptance, E, VU by IG at 07/05/2025 1624 Comment: PT POC Acceptance, E, VU,NR by NS at 06/26/2025 1618 Point: Body mechanics (In Progress) Learning Progress Summary Patient Acceptance, E,TB, NR,NL by CH at 07/21/2025 1009 Acceptance, E,TB, NR,VU by CH at 07/20/2025 1000 Acceptance, E, NR by KG at 07/18/2025 1520 Acceptance, E, VU by IG at 07/13/2025 1457 Comment: PT POC Acceptance, E, VU by IG at 07/10/2025 1532 Comment: PT POC Acceptance, E, VU by IG at 07/05/2025 1624 Comment: PT POC Acceptance, E, VU,NR by NS at 06/26/2025 1618 Point: Precautions (In Progress) Learning Progress Summary Patient Acceptance, E,TB, NR,NL by CH at 07/21/2025 1009 Acceptance, E,TB, NR,VU by CH at 07/20/2025 1000 Acceptance, E, NR by KG at 07/18/2025 1520 Acceptance, E, VU by IG at 07/13/2025 1457 Comment: PT POC Acceptance, E, VU by IG at 07/10/2025 1532 Comment: PT POC Acceptance, E, VU by IG at 07/05/2025 1624 Comment: PT POC Acceptance, E, VU,NR by ML at 06/29/2025 0907 Acceptance, E, VU,NR by NS at 06/26/2025 1618 User Llanes Initials Effective Dates Name Provider Type Discipline 02/26/21 - Shital Costa RN Registered Nurse Nurse KG 08/25/24 - Lori Rajan Physical Therapist PT NS 02/26/21 - Mirela Hsu, PT Physical Therapist PT ML 01/02/21 - Leonie Thomas Physical Therapist PT IG 04/19/25 - Hayden Matias, PT Physical Therapist PT PT Recommendation and Plan Recommended discharge disposition is based on the functional assessment performed by PT/OT/Speech therapy (as applicable) and may not reflect the medical necessity determined by your provider or services covered by an individual patient's insurance plan or patient resource. Progress: no change Outcome Evaluation: Patient rolled R/L in bed with order to be cleaned and have lift sling placed. Patient required lift to transfer from bed to chair. Patient continues to present below baseline formobility and would continue to benefit from skilled PT to address strength, balance and activity tolerance deficits. Continue current PT POC. Time Calculation: PT G-Codes Outcome Measure Options: AM-PAC 6 Clicks Daily Activity (OT) AM-PAC 6 Clicks Score (PT): 11 AM-PAC 6 Clicks Score (OT): 16 PT Discharge Summary Anticipated Discharge Disposition (PT): intermediate facility Leonie Thomas 07/26/2025 * Shyla Tarango, OT - 07/26/2025 7:48 AM EST Images from the original note were not included. Acute Care - Occupational Therapy Discharge [facility] Patient Name: Trung Pool : 1955 Today's Date: 07/26/2025 Admit Date: 06/25/2025 Visit Dx: ICD-10-CM ICD-9-CM 1. Cellulitis of left lower extremity L03.116 682.6 2. Hematuria, unspecified type R31.9 599.70 3. Urinary tract infection associated with indwelling urethral catheter, initial encounter T83.181R334.64 N39.0 599.0 4. Diarrhea, unspecified type R19.7 787.91 5. PAD (peripheral artery disease) I73.9 443.9 6. Wound infection T14.8XXA 958.3 L08.9 7. Critical limb ischemia of left lower extremity I70.222 440.22 Patient Active Problem List Diagnosis Acute deep [...] traumatic brain injury Possible meningioma Moderate malnutrition Seizure disorder Adrenal insufficiency Dysphagia Pressure injury of buttock, stage 1 Pressure ulcers of skin of multiple topographic sites Cellulitis of left foot Gangrene History of DVT (deep vein thrombosis) Severe sepsis Hx of migraine headaches Coronary artery disease involving [place] coronary artery of [place] heart without angina pectoris Left leg cellulitis Altered mental status PAD (peripheral artery disease) Wound infection Type 2 diabetes mellitus with diabetic peripheral angiopathy without gangrene, without long-term current use of insulin Mixed hyperlipidemia S/P AKA (above knee amputation), right CHARLIE (acute kidney injury) Type 2 diabetes mellitus, with long-term current use of insulin Arteriovenous fistula, acquired Cellulitis Acute UTI (urinary tract infection) Diarrhea of presumed infectious origin Acute on chronic blood loss anemia BPH without obstruction/lower urinary tract symptoms GERD without esophagitis Bilateral inguinal hernia Gastroenteritis due to norovirus Past Medical History: Diagnosis Date Anemia Cellulitis Diabetes mellitus Frequent falls History of DVT (deep vein thrombosis) Hyperlipidemia Hypertension Migraines Myocardial infarction Peripheral neuropathy Pneumonia Spinal stenosis Wears dentures FULL Wears glasses Past Surgical History: Procedure Laterality Date ABOVE KNEE AMPUTATION Right AMPUTATION DIGIT Left 01/28/2024 Procedure: SECOND AND THIRD TOE AMPUTATION LEFT; Surgeon: Cecil Buenrostro Jr., MD; Location: [facility]; Service: Orthopedics; Laterality: Left; ANTERIOR CERVICAL [...] 2 MIN 54 SEC, DOSE: 66 MGY. AORTOGRAM Left 07/03/2025 Procedure: ARTERIOGRAM LOWER EXTREMITY; Surgeon: Vaughn Hollingsworth DO; Location: [facility]; Service: Vascular; Laterality: Left; FT-6MINS 24SEC 140 MGY CONTRAST -15ML BACK SURGERY FOR DISC HERNIATION CARDIAC CATHETERIZATION [...] Location: [facility]; Service: Orthopedics; Laterality: Left; INCISION AND DRAINAGE LEG Left 07/03/2025 Procedure: DEBRIDEMENT WOUND, PLACEMENT OF WOUND VAC; Surgeon: Vaughn Hollingsworth DO; Location: [facility]; Service: Vascular; Laterality: Left; INTERVENTIONAL RADIOLOGY PROCEDURE N/A 05/02/2019 Procedure: IVC FILTER PLACEMENT; Surgeon: Pedro Zapien MD; Location: [facility]; Service: Interventional Radiology INTERVENTIONAL RADIOLOGY PROCEDURE Left 09/07/2024 Procedure: LEFT peroneal arteriovenous fistula embolization - Right femoral access; Surgeon: Jared Marcano MD; Location: [facility]; Service: Cardiovascular; Laterality: Left; Please coordinate with Gautam Patel ([facility]) [phone] who will bring coils LUMBAR DISCECTOMY N/A 05/03/2019 Procedure: THORACIC LAMINECTOMY T11-12; Surgeon: Tyree Tan MD; Location: [facility]; Service: Neurosurgery General Information Row Name 07/26/25 0744 OT Time and Intention Document Type discharge evaluation/summary Simultaneous filing. User may be unaware of other data. - Mode of Treatment occupational therapy Simultaneous filing. User may be unaware of other data. - User Llanes (r) = Recorded By, (t) = Taken By, (c) = Cosigned By Initials Name Provider Type CH Shyla Tarango OT Occupational Therapist Mobility/ADL's No documentation. Obj/Interventions No documentation. Goals/Plan Row Name 07/26/2504 Bed Mobility Goal 1 (OT) Activity/Assistive Device (Bed Mobility Goal 1, OT) rolling to left;rolling to right;sit to supine/supine to sit - Osteen Level/Cues Needed (Bed Mobility Goal 1, OT) minimum assist (75% or more patient effort);verbal cues required;nonverbal cues (demo/gesture) required;moderate assist (50-74% patient effort) - Progress/Outcomes (Bed Mobility Goal 1, OT) medical status inhibited participation;medical status inhibiting progress;goal no longer appropriate - Row Name 07/26/2547 Transfer Goal 1 (OT) Activity/Assistive Device (Transfer Goal 1, OT) eeh-ho-itakb/ywobz-wt-qun - Osteen Level/Cues Needed (Transfer Goal 1, OT) moderate assist (50-74% patient effort) -CH Progress/Outcome (Transfer Goal 1, OT) medical status inhibiting progress;medical status inhibited participation;goal no longer appropriate - Row Name 07/26/25745 Bathing Goal 1 (OT) Activity/Device (Bathing Goal 1, OT) upper body bathing - Osteen Level/Cues Needed (Bathing Goal 1, OT) minimum assist (75% or more patient effort);set-up required - Progress/Outcomes (Bathing Goal 1, OT) medical status inhibiting progress;medical status inhibited participation;goal no longer appropriate - Row Name 07/26/25 Dressing Goal 1 (OT) Activity/Device (Dressing Goal 1, OT) upper body dressing;lower body dressing - Osteen/Cues Needed (Dressing Goal 1, OT) standby assist - Time Frame (Dressing Goal 1, OT) short term goal (STG);4 days - Strategies/Barriers (Dressing Goal 1, OT) sitting EOB -CH Progress/Outcome (Dressing Goal 1, OT) medical status inhibiting progress;medical status inhibited participation;goal no longer appropriate - Row Name 07/26/25 0741 Grooming Goal 1 (OT) Activity/Device (Grooming Goal 1, OT) oral care;wash face, hands -CH Osteen (Grooming Goal 1, OT) set-up required -CH Strategies/Barriers (Grooming Goal 1, OT) sitting EOB with good dynamic sitting balance -CH Progress/Outcome (Grooming Goal 1, OT) medical status inhibiting progress;medical status inhibited participation;goal no longer appropriate - Row Name 07/26/25 0763 Strength Goal 1 (OT) Strength Goal 1 (OT) Pt. will completed UE and core TE with progressive reps and resistance to support ADL and transfer independence. -CH Progress/Outcome (Strength Goal 1, OT) goal no longer appropriate;medical status inhibiting progress;medical status inhibited participation - User Llanes (r) = Recorded By, (t) = Taken By, (c) = Cosigned By Initials Name Provider Type Shyla Monreal OT Occupational Therapist Clinical Impression Row Name 07/26/25 1250 Plan of Care Review Outcome Evaluation Pt transitioning to comfort measures, will discontinue OT consult. - User Llanes (r) = Recorded By, (t) = Taken By, (c) = Cosigned By Initials Name Provider Type Shyla Monreal OT Occupational Therapist Outcome Measures Row Name 07/25/252042 How much help from another person do you currently need... Turning from your back to your side while in flat bed without using bedrails? 3 -MC Moving from lying on back to sitting on the side of a flat bed without bedrails? 2 -MC Moving to and from a bed to a chair (including a wheelchair)? 2 -MC Standing up from a chair using your arms (e.g., wheelchair, bedside chair)? 2 -MC Climbing 3-5 steps with a railing? 1 -MC To walk in hospital room? 1 -MC AM-PAC 6 Clicks Score (PT) 11 -MC Highest Level of Mobility Goal Move to Chair/Commode-4 -MC User Llanes (r) = Recorded By, (t) = Taken By, (c) = Cosigned By Initials Name Provider Type MC Janay, Guerita, RN Registered Nurse OT Recommendation and Plan Recommended discharge disposition is based on the functional assessment performed by PT/OT/Speech therapy (as applicable) and may not reflect the medical necessity determined by your provider or services covered by an individual patient's insurance plan or patient resource. Plan of Care Review Plan of Care Reviewed With: patient Progress: no change Outcome Evaluation: Pt transitioning to comfort measures, will discontinue OT consult. Plan of Care Reviewed With: patient Outcome Evaluation: Pt transitioning to comfort measures, will discontinue OT consult. Time Calculation: OT Discharge Summary Anticipated Discharge Disposition (OT): intermediate facility Shyla Tarango OT 07/26/2025 * Monalisa Reilly RN - 07/16/2025 3:08 PM EST Images from the original note were not included. Case Management Monalisa Reilly RN [phone] Trung Pool (70 y.o. 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), ESBL (06/06/25), C.difficile (06/26/25) Code Status: CPR Ht: 182.9 cm (72 ) Wt: 120 kg (264 lb 5.3 oz) Admission Cmt: None Principal Problem: Gastroenteritis due to norovirus [A08.11] Active Insurance as of 06/25/2025 Primary Coverage Payor Plan Insurance Group Employer/Plan Group [employer] [place] MED[employer]ARE REPLACEMENT [employer] MED[employer] ADVANTAGE PPO Payor Plan Address Payor Plan Phone Number Payor Plan Fax Number Effective Dates [address] [address] 01/12/2024 - None Entered [facility] [id number] Subscriber Name Subscriber Date Member ID TRUNG POOL 1955 [id number] Emergency Contacts Brand Communications Manager (Rel.) Home Phone Work Phone Mobile Phone Zhane Salazar (Sister) [phone] -- [phone] History & Physical Amanda Bermudez MD at 06/25/25 2222 [facility] Medicine Services HISTORY AND PHYSICAL Patient Name: Trung Pool : 1955 Primary Care Physician: Gustavo Mehta MD Date of admission: 06/25/2025 Subjective Subjective Chief Complaint: Blood in urine, foot draining, fatigue, diarrhea since last Wednesday HPI: Trung Pool is a 70 y.o. male male with of CAD, PAD, Type 2 diabetes and history of right leg BKA amputation who presents to the emergency department with self-reported blood in his urine, left foot stump drainage, fatigue, and diarrhea. The patient reports having blood in his urine with associated bad odor. He has been experiencing severe fatigue. He has had diarrhea since last Wednesday, for which his primary care doctor prescribed medication that provided some relief. His last bowel movement was yesterday and remained watery despite treatment. Regarding his left leg, he reports that his foot has been throbbing and burning for approximately the last 6 months. He notes increased redness of the leg compared to usual and reports fluid leakage from the foot stump area. The foot was described as draining real bad. He states he can feel the area but it does not hurt. He does not follow with a vascular surgeon. The patient has Type 2 diabetes and uses an insulin pen nightly before bed. He did not take his insulin before coming to the hospital. He quit smoking 15 years ago and has not consumed alcohol for a long time. He uses plant brownies for pain and nausea management. He lives independently and uses an electric wheelchair for mobility. Home health services began visiting 3 days per week starting one week ago. Personal History Past Medical History: Diagnosis Date Anemia Cellulitis Diabetes mellitus Frequent falls History of DVT (deep vein thrombosis) Hyperlipidemia Hypertension Migraines Myocardial infarction Peripheral neuropathy Pneumonia Spinal stenosis Wears dentures FULL Wears glasses Past Surgical History: Procedure Laterality Date ABOVE KNEE AMPUTATION Right AMPUTATION DIGIT Left 01/28/2024 Procedure: SECOND AND THIRD TOE AMPUTATION LEFT; Surgeon: Cecil Buenrostro Jr., MD; Location: [facility]; Service: Orthopedics; Laterality: Left; ANTERIOR CERVICAL DISCECTOMY W/ FUSION Bilateral 07/17/2020 Procedure: Cervical discectomy anterior with fusion C3-4; Surgeon: Tyree Tan MD; Location:[facility]; Service: Neurosurgery; Laterality: Bilateral; AORTOGRAM N/A 01/26/2024 Procedure: ABDOMINAL AORTIC ANGIOGRAM, LLE ANGIOGRAM, LEFT ANTERIOR TIBIAL ATHERECTOMY, LEFT ANTERIOR TIBIAL ANGIOPLASTY; Surgeon: Archie Olvera MD; Location: [facility]; Service: Vascular; Laterality: N/A; CONTRAST: [...] femoral access; Surgeon: Jared Marcano MD; Location: [facility] CATH INVASIVE LOCATION; Service: Cardiovascular; Laterality: Left; Please coordinate with Gautam Patel ([facility]) [phone] who will bring coils LUMBAR DISCECTOMY N/A 05/03/2019 Procedure: THORACIC LAMINECTOMY T11-12; Surgeon: Tyree Tan MD; Location: [facility]; Service: Neurosurgery Family History: family history includes [...] minerals, ondansetron, pantoprazole, sacubitril-valsartan, and vitamin C Allergies[1] Objective Objective Vital Signs: Temp: [98.3 ??F (36.8 ??C)] 98.3 ??F (36.8 ??C) Heart Rate: [56-84] 77 Resp: [12-18] 17 BP: (108-157)/(50-90) 157/90 Physical Exam Vitals reviewed. Constitutional: General: He is not in acute distress. Appearance: Normal appearance. He is obese. HENT: Head: Normocephalic and atraumatic. Right Ear: External ear normal. Left Ear: External ear normal. Nose: Nose normal. Mouth/Throat: Mouth: Mucous membranes are dry. Eyes: General: No scleral icterus. Extraocular Movements: Extraocular movements intact. Pupils: Pupils are equal, round, and reactive to light. Cardiovascular: Rate and Rhythm: Normal rate and regular rhythm. Pulses: Normal pulses. Heart sounds: Normal heart sounds. No murmur heard. Pulmonary: Effort: Pulmonary effort is normal. No respiratory distress. Breath sounds: Normal breath sounds. No stridor. No wheezing. Abdominal: General: Bowel sounds are normal. There is no distension. Palpations: Abdomen is soft. Tenderness: There is abdominal tenderness. There is no guarding. Hernia: A hernia is present. Comments: Tenderness in left lower quadrant Genitourinary: Comments: De Los Santos in place Musculoskeletal: General: Deformity present. No swelling. Cervical back: Normal range of motion and neck supple. Comments: R BKA L transmetatarsal amputation Skin: General: Skin is warm and dry. Capillary Refill: Capillary refill takes less than 2 seconds. Coloration: Skin is not jaundiced. Findings: Erythema and lesion present. Comments: 2 to 3 cm ulceration on the dorsal aspect left foot stump; yellow in color Left lower extremity is dry, flaky, and erythematous Neurological: General: No focal deficit present. Mental Status: He is alert and oriented to person, place, and time. Cranial Nerves: No cranial nerve deficit. Sensory: Sensory deficit present. Motor: Weakness present. Gait: Gait abnormal. Psychiatric: Mood and Affect: Mood normal. Behavior: Behavior normal. Thought Content: Thought content normal. Result Review: I have personally reviewed the results from the time of this admission to 06/26/2025 00:11 EDT and agree with these findings: [x] Laboratory list / accordion [x] Microbiology [x] Radiology [x] EKG/Telemetry [] Cardiology/Vascular [] Pathology [x] Old records [] Other: Most notable findings include: LAB RESULTS: Lab 06/25/25 1817 WBC 9.96 HEMOGLOBIN 8.9* HEMATOCRIT 29.8* PLATELETS 281 NEUTROS ABS 7.05* IMMATURE GRANS (ABS) 0.05 LYMPHS ABS 1.48 MONOS ABS 1.01* EOS ABS 0.32 MCV 76.2* CRP 4.34* PROCALCITONIN 0.12 LACTATE 1.7 Lab 06/25/25 1817 SODIUM 138 POTASSIUM 4.4 CHLORIDE 106 CO2 21.2* ANION GAP 10.8 BUN 27.3* CREATININE 1.21 EGFR 64.0 GLUCOSE 173* CALCIUM 8.3* Lab 06/25/25 1817 TOTAL PROTEIN 7.2 ALBUMIN 3.2* GLOBULIN 4.0 ALT (SGPT) 14 AST (SGOT) 15 BILIRUBIN 0.2 ALK PHOS 127* UA 06/02/2025 12:31 06/25/2025 20:01 Urinalysis Squamous Epithelial Cells, UA Unable to determine due to loaded field 0-2 Specific [place], UA 1.019 1.011 Ketones, UA Negative Negative Blood, UA Large (3+) Large (3+) Leukocytes, UA Large (3+) Large (3+) Nitrite, UA Positive Positive RBC, UA Too Numerous to Count 6-10 WBC, UA Too Numerous to Count Too Numerous to Count Bacteria, UA 4+ 4+ Microbiology Results (last 10 days) Procedure Component Value - Date/Time Wound Culture - Swab, Foot, Left [[id number]] Collected: 06/25/251817 Lab Status: Preliminary result Specimen: Swab from Foot, Left Updated: 06/25/252205 Gram Stain Few (2+) WBCs seen Few (2+) Gram positive cocci in pairs, chains and clusters Few (2+) Gram negative bacilli CT Abdomen Pelvis With Contrast Addendum Date: 06/25/2025 ADDENDUM #1 IVC filter is present on imaging study. It is recommended that all patients with IVC filters in place have an active management care plan to monitor their IVC filter. If a care plan is not in place, patient should have a non emergent referral to an interventional specialist such as interventional radiology or other interventional vascular specialist for establishment of an IVC filter management care plan. Electronically Signed: Nehemias Ferraro 06/25/2025 9:53 PM EDT Workstation ID: [id number] ORIGINAL REPORT: CT ABDOMEN PELVIS W CONTRAST Date of Exam: 06/25/2025 7:05 PM EDT Indication:Diarrhea, hematuria, abdominal discomfort. Comparison: 06/02/2025 Technique: Axial CT images were obt ained of the abdomen and pelvis following the uneventful intravenous administration of iodinated contrast. Reconstructed coronal and sagittal images were also obtained. Automated exposure control anditerative construction methods were used. Findings: Calcific atherosclerosis of the coronary arteries. No pleural or pericardial effusion. No suspicious infiltrate in the lower lungs. No definite ectopic bowel gas. No splenomegaly or suspicious splenic lesion. No suspicious hepatic abnormality. No definite acute biliary abnormality. No suspicious splenic or pancreatic abnormality. Aorta appears normal in caliber. There is calcific atherosclerosis of the aorta and branch vessels. IVC filter is present, as before. Lymph nodes do not appear significantly enlarged. Probable small bilateral upper pole renal cysts. There is expected excretion of contrast from the kidneys. No hydronephrosis. No dilated small bowel loops. No definite acute gastric abnormality. Small fat-containing umbilical hernia. There are bilateral inguinal hernias. Smaller right inguinal hernia contains fat. Larger left inguinal hernia contains a partial loop of sigmoid colon. No proximal dilatation. The appendix appears within normal limits. No definite findings of acute colonic inflammation. The bladder is moderately distended. Small amount of gas is present in the bladder, as before. Bladder wall thickening appearsmildly decreased since the prior exam. Prostate does not appear significantly enlarged. De [place] catheter balloon and tip appears to terminate in the proximal penile urethra. There is some questionable wall thickening of the distal rectum. No other definite perirectal abnormality. There appears to be mild asymmetric prominence of the left inguinal lymph nodes. Severe left and moderate right hip osteoarthritis. Advanced degenerative changes in the lumbar spine. Mild chronic T11 and T12 height loss,as before. There is ankylosis at the sacroiliac joints. No visualized aggressive osseous lesion. Impression: 1.De [place] catheter balloon and tip appear to terminate in the proximal penile urethra. Recommend repositioning. 2.Moderate distention of the bladder with small amount of gas in the bladder, asbefore. Bladder wall thickening appears mildly decreased since the prior exam. Correlate with urinalysis. 3.Questionable wall thickening of the distal rectum. Correlate for symptoms of proctitis. 4.Bilateral inguinal hernias, larger on the left containing a partial loop of sigmoid colon. No proximal dilatation. 5.Mild asymmetric prominence of the left inguinal lymph nodes, likely reactive. Clinical follow-up recommended. 6.Calcific atherosclerosis. The ordering provider was notified of the results by Dr. Ferraro at 06/25/2025 7:54 PM EDT. Electronically Signed: Nehemias Ferraro 06/25/2025 7:55 PM EDT Workstation ID: [id number] Result Date: 06/25/2025 CT ABDOMEN PELVIS W CONTRAST Date of Exam: 06/25/2025 7:05 PM EDT Indication: Diarrhea, hematuria, abdominal discomfort. Comparison: 06/02/2025 Technique: Axial CT images were obtained of the abdomen and pelvis following the uneventful intravenous administration of iodinated contrast. Reconstructed coronal and sagittal images were also obtained. Automated exposure control and iterative construction methods were used. Findings: Calcific atherosclerosis of the coronary arteries. No pleural or pericardial effusion. No suspicious infiltrate in the lower lungs. No definite ectopic bowel gas. No splenomegaly or suspicious splenic lesion. No suspicious hepatic abnormality. No definite acute biliary abnormality. No suspicious splenic or pancreatic abnormality. Aorta appears normal in caliber. There is calcific atherosclerosis of the aorta and branch vessels. IVC filter is present, as before. Lymph nodes do not appear significantly enlarged. Probable small bilateral upper pole renal cysts. There is expected excretion of contrast from the kidneys. No hydronephrosis. No dilated small bowel loops. No definite acute gastric abnormality. Small fat- containing umbilical hernia. There are bilateralinguinal hernias. Smaller right inguinal hernia contains fat. Larger left inguinal hernia contains a partial loop of sigmoid colon. No proximal dilatation. The appendix appears within normal limits. No definite findings of acute colonic inflammation. The bladder is moderately distended. Small amount of gas is present in the bladder, as before. Bladder wall thickening appears mildly decreased since the prior exam. Prostate does not appear significantly enlarged. De [place] catheter balloon and tip appears to terminate in the proximal penile urethra. There is some questionable wall thickening of thedistal rectum. No other definite perirectal abnormality. There appears to be mild asymmetric prominence of the left inguinal lymph nodes. Severe left and moderate right hip osteoarthritis. Advanced degenerative changes in the lumbar spine. Mild chronic T11 and T12 height loss, as before. There is ankylosis at the sacroiliac joints. No visualized aggressive osseous lesion. Impression: Impression: 1.De [place] catheter balloon and tip appear to terminate in the proximal penileurethra. Recommend repositioning. 2.Moderate distention of the bladder with small amount of gas in the bladder, as before. Bladder wall thickening appears mildly decreased since the prior exam. Correlate with urinalysis. 3.Questionable wall thickening of the distal rectum. Correlate for symptoms ofproctitis. 4.Bilateral inguinal hernias, larger on the left containing a partial loop of sigmoid colon. No proximal dilatation. 5.Mild asymmetric prominence of the left inguinal lymph nodes, likely reactive. Clinical follow-up recommended. 6.Calcific atherosclerosis. The ordering provider was notified of the results by Dr. Ferraro at 06/25/2025 7:54 PM EDT. Electronically Signed: Nehemias Ferraro 06/25/2025 7:55 PM EDT Workstation ID: [id number] XR Foot 3+ View Left Result Date: 06/25/2025 XR FOOT 3+ VW LEFT Date of Exam: 06/25/2025 6:15 PM EDT Indication: diabetic ulcer. Comparison: August 2024 Findings: Bones are grossly osteopenic. There is marked soft tissue swelling overlying dorsum of the foot and at the stump distal to the metatarsal ray resection sites. There is shallow soft tissue ulceration at the dorsum of the foot distally. 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 There is dense vascular calcification noted. Impression: Impression: Marked soft tissue swelling at the stump and dorsum of the foot suggest cellulitis.. Small shallow soft tissue ulceration distal dorsum of the foot No acute osseous abnormality. If there is concern for osteomyelitis MRI is recommended. Electronically Signed: Duglas Lay MD 06/25/2025 7:03 PM EDT Workstation ID: [id number] Results for orders placed during the hospital encounter of 08/31/24 Adult Transthoracic Echo Complete W/ Cont if Necessary Per Protocol 09/12/2024 4:10 PM Interpretation Summary Left ventricular systolic function is normal. Calculated left ventricular EF = 52.5% There is a trivial pericardial effusion. The aortic valve exhibits sclerosis. Mitral annular calcification is present. Assessment & Plan Assessment & Plan Severe sepsis PAD (peripheral artery disease) Cellulitis Acute UTI (urinary tract infection) Primary hypertension Seizure disorder Coronary artery disease involving [place] coronary artery of [place] heart without angina pectoris Type 2 diabetes mellitus, with long-term current use of insulin Diarrhea of presumed infectious origin Acute on chronic blood loss anemia BPH without obstruction/lower urinary tract symptoms GERD without esophagitis Bilateral inguinal hernia Mr. Trung Pool is a male with Type 2 diabetes, PAD and history of right leg amputation who presents with hematuria, infected foot drainage, diarrhea since last Wednesday, and fatigue.The left foot showing signs of cellulitis with increased redness, fluid drainage, and throbbing pain over the past 6 months in the setting of previous amputation due to gangrene raises concern for recurrent infection or vascular compromise. Given the patient's diabetic history and previous gangrene, there is significant risk for serious soft tissue infection requiring aggressive antibiotic treatment and vascular surgery evaluation.The combination of multiple active infections, diabetes management issues (patient d id not take insulin before arrival), and recent need for home health services indicates complex medical needs requiring inpatient management. Severe sepsis multiple sources include: LLE cellulitis and UTI rule out infectious diarrhea History of recurrent left lower extremity cellulitis and wounds - Admit to medicine with telemetry monitoring -Initiate sepsis protocol: IV fluids, IV empiric antibiotics: Daptomycin and Zosyn; trend lactate, procal, urine studies, blood cultures; check CXR -Fluid management: IV fluid sepsis bolus: 2.8L IV maintenance fluids: 75cc/hr x 24hrs -Consult to wound care for left lower extremity limb assessment --Obtain EKG, check cardiac enzymes --Prior urine Cx 06/02: Positive for Proteus ESBL and E. Coli Consult infectious disease in the morning for antibiotic guidance -Acute diarrhea: Check GI PCR panel if further episodes and C. Difficile -De [place] Santos catheter in place -CT abd scan: Moderate distention of the bladder with small amount of gas in the bladder, as before. Bladder wall thickening, Questionable wall thickening of the distal rectum. Correlate for symptomsof proctitis. - Pulmonary toilet: Incentive spirometer, OPEP, duonebs 2. Severe PAD Hx of Right BKA; LLE revascularization and toes amputation -Imaging: CTA angio LLE to assess anatomy of arterial system for presence of plaque or clots -Check LLE arterial Doppler to assess blood flow and venous duplex to rule out VTE. -Check MRI to assess for osteomyelitis -pulse checks with dopplers -Pain management: IV morphine, resume home dose gabapentin and baclofen -Resume Plavix holding Eliquis due to self-reported hematuria - Mobility: Patient is wheelchair-bound and lives alone PT/OT eval consult to case management regarding placement --Consult vascular surgery in morning 3. T2DM -last A1C 7.6 (-2023) - Insulin sliding scale while inpatient glucose checks every 6 hours -Basal insulin dose: 56 units - Repeat A1c and lipid panel with a.m. labs 4. Acute on chronic anemia --H/H 8.06/11 MCV 76 patient reported hematuria in the ER -UA+ RBC and blood Continue to monitor closely off home dose Eliquis- holding off anticoagulationovernight - Type and screen transfuse for hemoglobin less than 7g/dL 5. HTN Hx of CAD - Resume home dose Coreg + plavix + Entresto 6. GERD BPH -continue PPI - Continue home dose finasteride 7. History of seizure disorder - Continue home dose lamotrigine 8. Bilateral inguinal hernias - Incidental finding on CT: Bilateral inguinal hernias, larger on the left containing a partial loop of sigmoid colon. - Consult to general surgeon in the morning Total time spent: 45 minutes Time spent includes time reviewing chart, [id number] time, counseling patient/family/caregiver, ordering medications/tests/procedures, communicating with other health healthcare specialist, documenting clinical information in the electronic health record, and coordination of care. VTE Prophylaxis: Pharmacologic VTE prophylaxis orders are signed & held. CODE STATUS: Code Status and Medical Interventions: CPR (Attempt to Resuscitate); Full Support Ordered at: 06/25/25 2310 Code Status (Patient has no pulse and is not breathing): CPR (Attempt to Resuscitate) Medical Interventions (Patient has pulse or is breathing): Full Support Level Of Support Discussed With: Patient Expected Discharge Expected Discharge Date: 06/27/2025; Expected Discharge Time: Amanda Bermudez MD 06/26/25 [1] Allergies Allergen Reactions Keppra [Levetiracetam] Other (See Comments) Acute psychosis Bupropion Unknown (See Comments) Codeine Nausea Only Hydrocodone Unknown (See Comments) Ketorolac Tromethamine Unknown (See Comments) 2206 Physician Progress Notes (last 24 hours) Mere Armas PA-C at 07/16/25 1339 [facility] Medicine Services PROGRESS NOTE Patient Name: Trung Pool : 1955 Date of Admission: 06/25/2025 Primary Care Physician: Gustavo Mehta MD Subjective CC: f/u LLE HPI: In bed. Notes LLE pain but manageable with current medications. Denies chest pain or dyspnea. Does have a cough. No abdominal pain, nausea or vomiting. De [place] catheter remains in place. Bowels moving. Alert and oriented x 4 today. He understands the difficult predicament he is in - is not sure he could manage abx at home. After discussion, he agrees that SNF for a few weeks may be best though he is reluctant. Objective Vital Signs: Temp: [97.6 ??F (36.4 ??C)-98.2 ??F (36.8 ??C)] 98 ??F (36.7 ??C) Heart Rate: [57-91] 57 Resp: [16-20] 19 BP: (115-136)/(51-71) 115/61 Physical Exam: Constitutional: No acute distress, awake, alert and conversant. Laying in bed. Chronically ill appearing. HENT: NCAT, mucous membranes moist Respiratory: Clear to auscultation bilaterally, normal respiratory effort on RA Cardiovascular: RRR Gastrointestinal: Positive bowel sounds, soft, nontender, nondistended Musculoskeletal: R AKA. LLE is dressed with wound vac in place - did not remove for exam Psychiatric: Appropriate affect, cooperative with exam Neurologic: Oriented x 4, moves all extremities spontaneously without focal deficits, speech clear Results Reviewed: LAB RESULTS: Lab 07/16/2544607/15/2543107/14/256 07/14/25 0425 07/13/25 0808 07/12/25 0454 WBC 6.76 8.08 -- 8.27 6.58 8.43 HEMOGLOBIN 8.9* 8.9* -- 9.2* 9.4* 10.1* HEMATOCRIT 30.2* 30.1* -- 30.9* 30.1* 33.1* PLATELETS 185 210 -- 251 256 282 MCV 80.7 80.9 -- 78.8* 77.2* 79.8 LACTATE -- -- 1.0 -- -- -- Lab 07/16/2544607/15/2543107/14/25 0425 07/13/25 1848 07/13/25 0808 07/12/25 2333 07/12/25 1535 07/12/25 0454 SODIUM 139 139 141 -- -- 136 138 136 POTASSIUM 4.9 4.8 4.9 5.1 -- 5.2 5.6* 6.1* CHLORIDE 110* 111* 111* -- -- 104 103 105 CO2 19.3* 18.8* 19.8* -- -- 21.9* 19.6* 19.7* ANION GAP 9.7 9.2 10.2 -- -- 10.1 15.4* 11.3 BUN 23.1* 25.4* 37.3* -- -- 36.8* 34.2* 32.6* CREATININE 0.80 0.74* 1.17 -- -- 1.19 1.13 1.09 EGFR 94.6 96.9 66.6 -- -- 65.3 69.5 72.6 GLUCOSE 134* 98 67 -- -- 126* 137* 107* CALCIUM 8.5* 8.6 8.6 -- -- 8.6 8.9 8.9 MAGNESIUM 2.0 2.1 2.3 -- 2.2 -- -- 2.1 Lab 07/14/25 1517 07/14/25 0601 FIO2 21 21 CARBOXYHEMOGLOBIN (VENOUS) 1.3 1.1 Brief Urine Lab Results (Last result in the past 365 days) Color Clarity Blood Leuk Est Nitrite Protein CREAT Urine HCG 07/14/2552 Yellow Clear Trace Moderate (2+) Negative 30 mg/dL (1+) Microbiology Results Abnormal Procedure Component Value - Date/Time Urine Culture - Urine, Indwelling Urethral Catheter [[id number]] (Abnormal) Collected: 07/14/2552 Lab Status: Final result Specimen: Urine from Indwelling Urethral Catheter Updated: 07/15/25 1329 Urine Culture Yeast isolated Narrative: No further workup for yeast Colonization of the urinary tract without infection is common. Treatment is discouraged unless the patient is symptomatic, , or undergoing an invasive urologic procedure. Urine Culture - Urine, Indwelling Urethral Catheter [[id number]] (Abnormal) (Susceptibility) Collected: 06/25/252000 Lab Status: Final result Specimen: Urine from Indwelling Urethral Catheter Updated: 06/30/25 1001 Urine Culture >100,000 CFU/mL Proteus mirabilis Narrative: Colonization of the urinary tract without infection is common. Treatment is discouraged unless the patient is symptomatic, , or undergoing an invasive urologic procedure. Susceptibility Proteus mirabilis MURRAY Amoxicillin + Clavulanate Susceptible Ampicillin Resistant Ampicillin + Sulbactam Intermediate Cefazolin (Urine) Resistant Cefepime Resistant Ceftazidime Susceptible Ceftriaxone Resistant Cefuroxime axetil Resistant Ciprofloxacin Resistant Gentamicin Susceptible Levofloxacin Resistant Nitrofurantoin Resistant Piperacillin + Tazobactam Susceptible Trimethoprim + Sulfamethoxazole Resistant Blood Culture - Blood, Hand, Right [[id number]] (Abnormal) (Susceptibility) Collected: 06/25/252029 Lab Status: Edited Result - FINAL Specimen: Blood from Hand, Right Updated: 06/29/25 0713 Blood Culture Enterococcus faecium Comment: Infectious disease consultation is highly recommended. Isolated from Anaerobic Bottle Gram Stain Anaerobic Bottle Gram positive cocci in chains Narrative: Less than seven (7) mL's of blood was collected. Insufficient quantity may yield false negative results. requested linezolid & daptomycin 06/28/25 Susceptibility Enterococcus faecium MURRAY Method Not Specified Ampicillin Susceptible Daptomycin Susceptible dose dependent Gentamicin High Level Synergy Susceptible Linezolid Susceptible (C) [1] Vancomycin Susceptible [1] Appended report. These results have been appended to a previously final verified report. Wound Culture - Swab, Foot, Left [[id number]] (Abnormal) (Susceptibility) Collected: 06/25/25 1818 Lab Status: Final result Specimen: Swab from Foot, Left Updated: 06/29/25 0645 Wound Culture Heavy growth (4+) Staphylococcus aureus, MRSA Comment: Methicillin resistant Staphylococcus aureus, Patient may be an isolation risk. Moderate growth (3+) Morganella morganii ssp morganii Moderate growth (3+) Proteus mirabilis ESBL Comment: Consider infectious disease consult. Susceptibility results may not correlate to clinical outcomes. Gram Stain Few (2+) WBCs seen Few (2+) Gram positive cocci in pairs, chains and clusters Few (2+) Gram negative bacilli Susceptibility Staphylococcus aureus, MRSA MURRAY Clindamycin Susceptible Erythromycin Resistant Oxacillin Resistant Rifampin Susceptible Tetracycline Susceptible Trimethoprim + Sulfamethoxazole Resistant Vancomycin Susceptible Susceptibility Morganella morganii ssp morganii MURRAY Method Not Specified Amoxicillin + Clavulanate Resistant Ampicillin Resistant Ampicillin + Sulbactam Resistant Cefazolin (Non Urine) Resistant Cefepime Susceptible Cefotaxime Susceptible Ceftazidime Susceptible Cefuroxime axetil Resistant Ciprofloxacin Resistant Gentamicin Susceptible Levofloxacin Resistant Piperacillin + Tazobactam Susceptible Tetracycline Susceptible Trimethoprim + Sulfamethoxazole Resistant Susceptibility Proteus mirabilis ESBL MURRAY Ciprofloxacin Resistant Ertapenem Susceptible Levofloxacin Resistant Meropenem Susceptible Tetracycline Resistant Trimethoprim + Sulfamethoxazole Resistant Susceptibility Comments Morganella morganii ssp morganii Cefotaxime susceptibility can be used as a surrogate for ceftriaxone susceptibility Proteus mirabilis ESBL With the exception of urinary-sourced infections, aminoglycosides should not be used as monotherapy. Blood Culture ID, PCR - Blood, Hand, Right [[id number]] (Abnormal) Collected: 06/25/25 2030 Lab Status: Final result Specimen: Blood from Hand, Right Updated: 06/26/252101 BCID, PCR Enterococcus faecium. Zee/B (vancomycin resistance gene) not detected. Identification byBCID2 PCR. BOTTLE TYPE Anaerobic Bottle Narrative: Infectious disease consultation is highly recommended to rule out distant foci of infection. MRSA Screen, PCR (Inpatient) - Swab, Nares [[id number]] (Abnormal) Collected: 06/26/25 0046 Lab Status: Final result Specimen: Swab from Nares Updated: 06/26/2550 MRSA PCR Positive Narrative: The negative predictive value of this diagnostic test is high and should only be used to consider de-escalating anti-MRSA therapy. A positive result may indicate colonization with MRSA and must be correlated clinically. Gastrointestinal Panel, PCR - Stool, Per Rectum [[id number]] (Abnormal) Collected: 06/26/2545 Lab Status: Final result Specimen: Stool from Per Rectum Updated: 06/26/25849 Campylobacter Not Detected Plesiomonas shigelloides Not Detected Salmonella Not Detected Vibrio Not Detected Vibrio cholerae Not Detected Yersinia enterocolitica Not Detected Enteroaggregative E. coli (EAEC) Not Detected Enteropathogenic E. coli (EPEC) Not Detected Enterotoxigenic E. coli (ETEC) lt/st Not Detected Shiga-like toxin-producing E. coli (STEC) stx1/stx2 Not Detected Shigella/Enteroinvasive E. coli (EIEC) Not Detected Cryptosporidium Not Detected Cyclospora cayetanensis Not Detected Entamoeba histolytica Not Detected Giardia lamblia Not Detected Adenovirus F40/41 Not Detected Astrovirus Not Detected Norovirus GI/GII Detected Comment: If a positive Norovirus result is inconsistent with clinical presentation, the positive Norovirus result should be confirmed using another method. Rotavirus A Not Detected Sapovirus (I, II, IV or V) Not Detected Clostridioides difficile Toxin - Stool, Per Rectum [[id number]] (Abnormal) Collected: 06/26/2545 Lab Status: Final result Specimen: Stool from Per Rectum Updated: 06/26/25754 Narrative: The following orders were created for panel order Clostridioides difficile Toxin - Stool, Per Rectum. Procedure Abnormality Status --------- ------ Clostridioides difficile...[[id number]] Abnormal Final result Please view results for these tests on the individual orders. Clostridioides difficile Toxin, PCR - Stool, Per Rectum [[id number]] (Abnormal) Collected: 06/26/2545 Lab Status: Final result Specimen: Stool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 mass. HEART: RRR; No murmur, rubs, gallops. LUNGS: diminished at bases; Clear to auscultation bilaterally without wheezing, rales, rhonchi. Normal respiratory effort. Nonlabored. No dullness. ABDOMEN: Soft, nontender, nondistended. Positive bowel sounds. No rebound or guarding. NO mass or HSM. EXT: see below : With De [place] Santos catheter. MSK: FROM without joint effusions noted arms/legs. SKIN: Warm and dry without cutaneous eruptions on Inspection/palpation. NEURO: sleepy Left foot amputation noted surgical site covered. Vague erythema LLE but no discrete mass bulge or fluctuance. No crepitus or bulla Right side amputation no obvious open wound or new redness/induration Laboratory Data Results from last 7 days Lab Units 07/16/25 0447 07/15/25 0432 07/14/25 0425 WBC 10*3/mm3 6.76 8.08 8.27 HEMOGLOBIN g/dL 8.9* 8.9* 9.2* HEMATOCRIT % 30.2* 30.1* 30.9* PLATELETS 10*3/mm3 185 210 251 Results from last 7 days Lab Units 07/16/25 0447 SODIUM mmol/L 139 POTASSIUM mmol/L 4.9 CHLORIDE mmol/L 110* CO2 mmol/L 19.3* BUN mg/dL 23.1* CREATININE mg/dL 0.80 GLUCOSE mg/dL 134* CALCIUM mg/dL 8.5* Estimated Creatinine Clearance: 113.3 mL/min (by C-G formula based on SCr of 0.8 mg/dL). Microbiology: Radiology: Imaging Results (Last 72 Hours) No results found for the last 72 hours. Impression: --acute left lower leg/foot cellulitis and wound infection, prior culture July 2024 with ESBL Klebsiella pneumoniae and pseudomonas aeruginosa, pseudomonas was sensitive to Merrem per microbiology lab at [facility]. Cx at [facility] as below; He has had multiple surgeries and multiple p ractitioners recommend higher level amputation which he has refused. On prior admissions, he has refused outpatient IV antibiotics and he has refused placement for longer durations of IV antibiotics.This refusal of care has placed him at increased risk for poor outcome. Earlier in 2024 he was discharged to the care of Dr. Oneal, his outpatient ID doctor and Dr Faust his automobile travel club counselor for furthercare/workup ; readmission May 2025 and June 2025 with acute worsening in redness/drainage to left lower extremity. Surgery as above and ongoing IV abx, admission associated with bacteremia and mixed/MDR organisms; High risk for further serious morbidity and other serious sequela including p ersistent/recurrent or nonhealing wounds, persistent/progressive or recurrent infection and risk for further functional/limb loss, higher-level amputation and other dire consequences including sepsis/mortalityetc. he remains opposed to amputation; he voices understanding his poor prognosis overall including risks for dire consequences; past Cx with MRSA/PSA/ESBL at prior admissions; culture June 02, 2025 with Proteus/MRSA/PSA; Cx June 2025 below; further imaging no definitive osteomyelitis but also unable to exclude per radiology at distal first/second MT; surgery with I&D 07/03 but no further bone debridement/amputation --E Faecium bacteremia ; NOT vanco resistant; ?foot source -v- other --Acute hematuria/UTI with chronic indwelling De [place] Santos catheter. Proteus in culture previously; nursing reports De Los Santos catheter change earlier in admission; repeat urine 07/14 with yeast, ?colonizer -v- evolving UTI, de los santos to change and empiric mycamine x 1 then monitor; if stronger evidence for yeast as pathogen then may need ampho b prooduct if not responding to echinocnadin given Hx QT prolongation --Acute diarrhea, Norovirus + and C. Difficile PCR +, although toxin antigen negative earlier in stay. He has risk for active disease and does have symptomatology and requires antibiotics for other processes, and therefore oral vancomycin added although unable to definitively confirm active diseasewith toxin antigen negative ( although risk for false negative); supportive care ongoing --MRSA surveillance + --Peripheral arterial disease by past evaluation of vascular team in addition to history DVT. 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; postop after 07/03 surgery with decreased LOC, seen bymedicine and adjustments per them in medications; further neuro workup per medicine / neuro team; awake/interactive as of my 07/05 visit --Hx QTc > 500 ms on prior EKG PLAN: --IV vancomycin/merrem, oral vancomycin; likely to need IV abx in light of bacteremia/abnormal MRI as previously noted; final duration could depend on his surgical decisions, if he has BKA/AKA then he may not need quite as long a duration of antibiotics in light of focus removal at that point; he would need to finish duration for bacteremia; again, final duration to depend on clinical course/surgical plans/patient goals of care etc. He does not have enough assistance at home to do IV abx at home per him; case management and palliative teams following --mycamine IV x 1 07/14 and repeat dose 07/16 ; de los santos change again 07/16 wound culture June 02, 2025 with Proteus /MRSA, PSA urine culture June 02, 2025 E Coli/ESBL Proteus urine culture 06/25 proteus blood culture 06/25 E Faecium vanco/amp sensitive; dapto sens but dose dependent wound culture 06/25 (surface) with MRSA and ESBL proteus and morganella --Check/review labs cultures and scans --Partial history [...] transitions of care for this complex patient. Duglas Andres MD 07/16/2025 [1] Allergies Allergen Reactions Keppra [Levetiracetam] Other (See Comments) Acute psychosis Bupropion Unknown (See Comments) Codeine Nausea Only Hydrocodone Unknown (See Comments) Ketorolac Tromethamine Unknown (See Comments) [2] Current Facility-Administered Medications Medication Dose Route Frequency Provider Last Rate Last Admin acetaminophen (TYLENOL) tablet 650 mg 650 mg Oral Q4H PRN Amanda Bermudez MD 650 mg at 06/29/25 0343 Or acetaminophen (TYLENOL) 160 MG/5ML oral solution 650 mg 650 mg Oral Q4H PRN Amanda Bermudez MD Or acetaminophen (TYLENOL) suppository 650 mg 650 mg Rectal Q4H PRN Amanda Bermudez MD aluminum-magnesium hydroxide-simethicone (MAALOX MAX) 400-400-40 MG/5ML suspension 15 mL 15 mL [id number] PRN Amanda Bermudez MD [Held by provider] apixaban (ELIQUIS) tablet 5 mg 5 mg Oral BID Amanda Bermudez MD ascorbic acid (VITAMIN C) tablet 500 mg 500 mg Oral Daily Amanda Bermudez MD 500 mg at 07/01/25 0830 baclofen (LIORESAL) tablet 10 mg 10 mg Oral Q12H Amanda Bermudez MD 10 mg at 07/01/25 2144 sennosides-docusate (PERICOLACE) 8.6-50 MG per tablet 2 tablet 2 tablet Oral BID PRN Amanda Bermudez MD And polyethylene glycol (MIRALAX) packet 17 g 17 g Oral Daily PRN Amanda Bermudez MD And bisacodyl (DULCOLAX) EC tablet 5 mg 5 mg Oral Daily PRN Amanda Bermudez MD And bisacodyl (DULCOLAX) suppository 10 mg 10 mg Rectal Daily PRN Amanda Bermudez MD Calcium Replacement - Follow Nurse / BPA Driven Protocol Not Applicable PRN Amanda Bermudez MD carvedilol (COREG) tablet 3.125 mg 3.125 mg Oral BID With Meals Amanda Bermudez MD 3.125 mg at 07/01/25 1712 clopidogrel (PLAVIX) tablet 75 mg 75 mg Oral Daily Amanda Bermudez MD 75 mg at 07/01/25 0830 famotidine (PEPCID) tablet 20 mg 20 mg Oral BID AC Arnoldo Crews, Amanda 20 mg at 07/02/25 0649 finasteride (PROSCAR) tablet 5 mg 5 mg Oral Daily Amanda Bermudez MD 5 mg at 07/01/25 0830 folic acid (FOLVITE) tablet 1 mg 1 mg Oral Daily Amanda Bermudez MD 1 mg at 07/01/25 0830 gabapentin (NEURONTIN) capsule 300 mg 300 mg Oral Q8H Milena Jo APRN 300 mg at 07/02/25 0649 heparin (porcine) 5000 UNIT/ML injection 5,000 Units 5,000 Units Subcutaneous Q8H Lupe Albert APRN 5,000 Units at 07/02/25 0649 influenza vac split high-dose (FLUZONE HIGH DOSE) injection 0.5 mL 0.5 mL Intramuscular During Hospitalization Kris Boston DO insulin glargine (LANTUS, SEMGLEE) injection 56 Units 56 Units Subcutaneous Nightly Amanda Bermudez MD 56 Units at 07/01/25 2145 ipratropium-albuterol (DUO-NEB) nebulizer solution 3 mL 3 mL Nebulization Q6H PRN Amanda Bermudez MD lamoTRIgine (LaMICtal) tablet 100 mg 100 mg Oral Daily Amanda Bermudez MD 100 mg at 07/01/25 0830 lamoTRIgine (LaMICtal) tablet 250 mg 250 mg Oral Nightly Amanda Bermudez MD 250 mg at 07/01/25 2144 Magnesium Cardiology Dose Replacement - Follow Nurse / BPA Driven Protocol Not Applicable PRN Amanda Bermudez MD meropenem (MERREM) 500 mg in sodium chloride 0.9 % 100 mL MBP 500 mg Intravenous Q6H Duglas Andres MD 500 mg at 07/02/25 0359 methenamine (HIPREX) tablet 1 g 1 g Oral BID With Meals Amanda Bermudez MD 1 g at 07/01/25 1713 multivitamin with minerals 1 tablet 1 tablet Oral Daily Amanda Bermudez MD 1 tablet at 07/01/25 0830 naloxone (NARCAN) injection 0.4 mg 0.4 mg Intravenous Q5 Min PRN Amanda Bermudez MD nitroglycerin (NITROSTAT) SL tablet 0.4 mg 0.4 mg Sublingual Q5 Min PRN Amanda Bermudez MD ondansetron (ZOFRAN) injection 4 mg 4 mg Intravenous Q6H PRN Amanda Bermudez MD 4 mg at 06/29/25 1646 oxyCODONE-acetaminophen (PERCOCET) 10-325 MG per tablet 1 tablet 1 tablet Oral Q6H PRN Kris Boston DO 1 tablet at 07/02/25 0125 Pharmacy to dose vancomycin Not Applicable Continuous PRN Duglas Andres MD Phosphorus Replacement - Follow Nurse / BPA Driven Protocol Not Applicable PRN Amanda Bermudez MD Potassium Replacement - Follow Nurse / BPA Driven Protocol Not Applicable PRN Amanda Bermudez MD sacubitril-valsartan (ENTRESTO) 24-26 MG tablet 1 tablet 1 tablet Oral BID Amanda Bermudez MD 1 tablet at 07/01/25 2144 sodium chloride 0.9 % flush 10 mL 10 mL Intravenous PRN Ally Jeffers V, DIABETES NURSE sodium chloride 0.9 % flush 10 mL 10 mL Intravenous Q12H Amanda Bermudez MD 10 mL at 07/01/25 0832 sodium chloride 0.9 % flush 10 mL 10 mL Intravenous PRN Amanda Bermudez MD sodium chloride 0.9 % flush 10 mL 10 mL Intravenous Q12H Duglas Andres MD 10 mL at 07/01/25 2145 sodium chloride 0.9 % flush 10 mL 10 mL Intravenous PRN Duglas Andres MD sodium chloride 0.9 % flush 20 mL 20 mL Intravenous PRN Duglas Andres MD sodium chloride 0.9 % infusion 40 mL 40 mL Intravenous PRN Duglas Andres MD vancomycin (VANCOCIN) 1,000 mg in sodium chloride 0.9 % 250 mL IVPB-VTB 1,000 mg Intravenous Q12H Osmany Mccann, [facility] 250 mL/hr at 07/01/25 214 1,000 mg at 07/01/25 214 vancomycin (VANCOCIN) capsule 125 mg 125 mg Oral 4x Daily Duglas Andres MD 125 mg at Followed by [START ON 07/10/2025] vancomycin (VANCOCIN) capsule 125 mg 125 mg Oral TID Duglas Andres MD Followed by [START ON 07/17/2025] vancomycin (VANCOCIN) capsule 125 mg 125 mg Oral BID Duglas Andres MD Followed by [START ON 07/25/2025] vancomycin (VANCOCIN) capsule 125 mg 125 mg Oral Daily Duglas Andres MD Followed by [START ON 08/01/2025] vancomycin (VANCOCIN) capsule 125 mg 125 mg Oral Weekly Duglas Andres MD 0818 Physical Therapy Notes (most recent note) Ashley Sanchez, PT at 07/14/25 1006 Version 1 of 1 Acute Care - Wound/Debridement Treatment Note COLLIN Fernando Patient Name: Trung Pool : 1955 Today's Date: 07/14/2025 Admit Date: 06/25/2025 Visit Dx: ICD-10-CM ICD-9-CM 1. Cellulitis of left lower extremity L03.116 682.6 2. Hematuria, unspecified type R31.9 599.70 3. Urinary tract infection associated with indwelling urethral catheter, initial encounter T83.264K592.64 N39.0 599.0 4. Diarrhea, unspecified type R19.7 787.91 5. PAD (peripheral artery disease) I73.9 443.9 6. Wound infection T14.8XXA 958.3 L08.9 7. Critical limb ischemia of left lower extremity I70.222 440.22 Patient Active Problem List Diagnosis Acute deep [...] traumatic brain injury Possible meningioma Moderate malnutrition Seizure disorder Adrenal insufficiency Dysphagia Pressure injury of buttock, stage 1 Pressure ulcers of skin of multiple topographic sites Cellulitis of left foot Gangrene History of DVT (deep vein thrombosis) Severe sepsis Hx of migraine headaches Coronary artery disease involving [place] coronary artery of [place] heart without angina pectoris Left leg cellulitis Altered mental status PAD (peripheral artery disease) Wound infection Type 2 diabetes mellitus with diabetic peripheral angiopathy without gangrene, without long-term current use of insulin Mixed hyperlipidemia S/P AKA (above knee amputation), right CHARLIE (acute kidney injury) Type 2 diabetes mellitus, with long-term current use of insulin Arteriovenous fistula, acquired Cellulitis Acute UTI (urinary tract infection) Diarrhea of presumed infectious origin Acute on chronic blood loss anemia BPH without obstruction/lower urinary tract symptoms GERD without esophagitis Bilateral inguinal hernia Gastroenteritis due to norovirus Past Medical History: Diagnosis Date Anemia Cellulitis Diabetes mellitus Frequent falls History of DVT (deep vein thrombosis) Hyperlipidemia Hypertension Migraines Myocardial infarction Peripheral neuropathy Pneumonia Spinal stenosis Wears dentures FULL Wears glasses Past Surgical History: Procedure Laterality Date ABOVE KNEE AMPUTATION Right AMPUTATION DIGIT Left 01/28/2024 Procedure: SECOND AND THIRD TOE AMPUTATION LEFT; Surgeon: Cecil Buenrostro Jr., MD; Location: [facility]; Service: Orthopedics; Laterality: Left; ANTERIOR CERVICAL DISCECTOMY W/ FUSION Bilateral 07/17/2020 Procedure: Cervical discectomy anterior with fusion C3-4; Surgeon: Tyree Tan MD; Location:[facility]; Service: Neurosurgery; Laterality: Bilateral; AORTOGRAM N/A 01/26/2024 Procedure: ABDOMINAL AORTIC ANGIOGRAM, LLE ANGIOGRAM, LEFT ANTERIOR TIBIAL ATHERECTOMY, LEFT ANTERIOR TIBIAL ANGIOPLASTY; Surgeon: Archie Olvera MD; Location: [facility]; Service: Vascular; Laterality: N/A; CONTRAST: 50 ML, FT: 2 MIN 54 SEC, DOSE: 66 MGY. AORTOGRAM Left 07/03/2025 Procedure: ARTERIOGRAM LOWER EXTREMITY; Surgeon: Vaughn Hollingsworth DO; Location: [facility]; Service: Vascular; Laterality: Left; FT-6MINS 24SEC 140 MGY CONTRAST -15ML BACK SURGERY FOR DISC HERNIATION CARDIAC CATHETERIZATION CARDIAC CATHETERIZATION N/A 09/04/2024 Procedure: Peripheral angiography - Left lower extremity angio - Right femoral access; Surgeon: Jared Marcano MD; Location: [facility]AS[facility] LOCATION; Service: Peripheral Vascular; Laterality: N/A; CORONARY ANGIOPLASTY WITH STENT PLACEMENT stent x 1 INCISION AND DRAINAGE FOOT Left 06/17/2023 Procedure: LEFT FOOT DEBRIDEMENT WOUND VACUUM ASSISTED CLOSURE; Surgeon: Cecil Buenrostro Jr., MD;Location: [facility]; Service: Orthopedics; Laterality: Left; INCISION AND DRAINAGE LEG Left 07/25/2023 Procedure: INCISION AND DRAINAGE HEEL, WOUND VAC; Surgeon: Cecil Buenrostro Jr., MD; Location: [facility]; Service: Orthopedics; Laterality: Left; INCISION AND DRAINAGE LEG Left 07/03/2025 Procedure: DEBRIDEMENT WOUND, PLACEMENT OF WOUND VAC; Surgeon: Vaughn Hollingsworth DO; Location: [facility]; Service: Vascular; Laterality: Left; INTERVENTIONAL RADIOLOGY PROCEDURE N/A 05/02/2019 Procedure: IVC FILTER PLACEMENT; Surgeon: Pedro Zapien MD; Location: [facility]; Service: Interventional Radiology INTERVENTIONAL RADIOLOGY PROCEDURE Left 09/07/2024 Procedure: LEFT peroneal arteriovenous fistula embolization - Right femoral access; Surgeon: Jared Marcano MD; Location: [facility]; Service: Cardiovascular; Laterality: Left; Please coordinate with Gautam Patel ([facility]) [phone] who will bring coils LUMBAR DISCECTOMY N/A 05/03/2019 Procedure: THORACIC LAMINECTOMY T11-12; Surgeon: Tyree Tan MD; Location: [facility]; Service: Neurosurgery Wound 01/15/24 194 Left lower leg Other (comment) (Active) Periwound Care dry periwound area maintained 07/13/25 1800 Wound 01/28/24 Left anterior second toe Incision (Active) Periwound Care dry periwound area maintained 07/13/25 1800 Wound Left posterior heel (Active) Periwound Care dry periwound area maintained 07/13/25 1800 Wound 06/26/25 0150 Left medial coccyx Pressure Injury (Active) Dressing Appearance other (see comments) 07/13/251999 Closure None 07/13/251999 Base red;pink;moist 07/13/251999 Periwound moist;pink;redness 07/13/251999 Periwound Temperature warm 07/13/251999 Periwound Skin Turgor soft 07/13/251999 Drainage Characteristics/Odor bleeding controlled 07/13/251999 Drainage Amount scant 07/13/251999 Care, Wound cleansed with;soap and water 07/13/251999 Dressing Care silicone border foam 07/13/251999 Periwound Care dry periwound area maintained 07/13/251999 Wound 06/26/25 0150 Left posterior greater trochanter Pressure Injury (Active) Dressing Appearance open to air 07/13/251999 Closure Open to air 07/13/251999 Base red;moist 07/13/251999 Periwound moist;pink 07/13/251999 Drainage Characteristics/Odor bleeding controlled 07/13/251999 Drainage Amount none 07/13/251999 Care, Wound cleansed with;soap and water 07/13/251999 Dressing Care silicone border foam 07/13/251999 Periwound Care barrier ointment applied 07/13/251999 Wound 06/26/25 0150 Right posterior greater trochanter Pressure Injury (Active) Dressing Appearance open to air 07/13/251999 Closure Adhesive bandage 07/13/251999 Base moist;red 07/13/251999 Periwound pink;moist 07/13/251999 Drainage Characteristics/Odor bleeding controlled 07/13/251999 Drainage Amount none 07/13/251999 Care, Wound cleansed with;soap and water 07/13/251999 Dressing Care silicone border foam 07/13/251999 Periwound Care dry periwound area maintained 07/13/251999 Wound 07/03/25 Right anterior groin Surgical Puncture (Active) Dressing Appearance open to air 07/13/25 1622 Wound 07/03/25 1535 Right anterior groin Traumatic Skin Tear (Active) Dressing Appearance open to air 07/13/25 1622 NPWT (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 Wound Therapy) 07/03/25 LEFT FOOT (Active) Therapy Setting continuous therapy 07/14/25 1006 Dressing foam, black 07/13/25 1800 Pressure Setting 125 mmHg 07/14/25 1006 WOUND DEBRIDEMENT PT Assessment (Last 12 Hours) PT Evaluation and Treatment Row Name 07/14/25 1006 Physical Therapy Time and Intention Subjective Information no complaints -KW Document Type wound care;therapy note (daily note) -KW Mode of Treatment physical therapy -KW Row Name 07/14/25 1006 General Information Patient Profile Reviewed yes -KW Row Name Wound 06/26/25 0150 Left medial coccyx Pressure Injury Wound - Properties Group Placement Date: 06/26/25 Placement Time: 149 - Present on Original Admission: Y -EW Side: Left -EW Orientation: medial -EW Location: coccyx -EW Primary Wound Type: Pressure Inj -EW Retired Wound - Properties Group Placement Date: 06/26/25 Placement Time: 149 - Present on Original Admission: Y -EW Side: Left -EW Orientation: medial -EW Location: coccyx -EW Retired Wound - Properties Group Placement Date: 06/26/25 Placement Time: 0 - Present on Original Admission: Y -EW Side: Left -EW Orientation: medial -EW Location: coccyx -EW Retired Wound - Properties Group Date first assessed: 06/26/25 Time first assessed: 0150 -EW Present on Original Admission: Y -EW Side: Left -EW Location: coccyx -EW Row Name Wound 06/26/25 0150 Left posterior greater trochanter Pressure Injury Wound - Properties Group Placement Date: 06/26/25 Placement Time: 0150 -EW Present on Original Admission: Y -EW Side: Left -EW Orientation: posterior -EW Location: greater trochanter -EW Primary Wound Type: Pressure Inj -EW Retired Wound - Properties Group Placement Date: 06/26/25 Placement Time: 0150 -EW Present on Original Admission: Y -EW Side: Left -EW Orientation: posterior -EW Location: greater trochanter -EW Retired Wound - Properties Group Placement Date: 06/26/25 Placement Time: 0150 -EW Present on Original Admission: Y -EW Side: Left -EW Orientation: posterior -EW Location: greater trochanter -EW Retired Wound - Properties Group Date first assessed: 06/26/25 Time first assessed: 0150 -EW Present on Original Admission: Y -EW Side: Left -EW Location: greater trochanter -EW Row Name Wound 06/26/25 0150 Right posterior greater trochanter Pressure Injury Wound - Properties Group Placement Date: 06/26/25 Placement Time: 0150 -EW Present on Original Admission: Y -EW Side: Right -EW Orientation: posterior -EW Location: greater trochanter -EW PrimaryWound Type: Pressure Inj -EW Retired Wound - Properties Group Placement Date: 06/26/25 Placement Time: 0150 -EW Present on Original Admission: Y -EW Side: Right -EW Orientation: posterior -EW Location: greater trochanter -EW Retired Wound - Properties Group Placement Date: 06/26/25 Placement Time: 0150 -EW Present on Original Admission: Y -EW Side: Right -EW Orientation: posterior -EW Location: greater trochanter -EW Retired Wound - Properties Group Date first assessed: 06/26/25 Time first assessed: 0150 -EW Present on Original Admission: Y -EW Side: Right -EW Location: greater trochanter -EW Row Name Wound Left posterior heel Wound - Properties Group Present on Original Admission: Y -MR Side: Left -MR Orientation: posterior-MR Location: heel -MR Primary Wound Type: Pressure inj -MR Retired Wound - Properties Group Present on Original Admission: Y -MR Side: Left -MR Orientation: posterior -MR Location: heel -MR Primary Wound Type: Pressure inj -MR Retired Wound - Properties Group Present on Original Admission: Y -MR Side: Left -MR Orientation: posterior -MR Location: heel -MR Primary Wound Type: Pressure inj -MR Retired Wound - Properties Group Present on Original Admission: Y -MR Side: Left -MR Location: heel-MR Primary Wound Type: Pressure inj -MR Row Name Wound 01/28/24 Left anterior second toe Incision Wound - Properties Group Placement Date: 01/28/24 -MJ Present on Original Admission: N -MJ Side: Left -MJ Orientation: anterior -MJ Location: second toe - MJ Primary Wound Type: Incision -MJ Retired Wound - Properties Group Placement Date: 01/28/24 -MJ Present on Original Admission: N -MJ Side: Left -MJ Orientation: anterior -MJ Location: second toe -MJ Primary Wound Type: Incision -MJ Retired Wound - Properties Group Placement Date: 01/28/24 -MJ Present on Original Admission: N -MJ Side: Left -MJ Orientation: anterior -MJ Location: second toe -MJ Primary Wound Type: Incision -MJ Retired Wound - Properties Group Date first assessed: 01/28/24 -MJ Present on Original Admission: N-MJ Side: Left -MJ Location: second toe -MJ Primary Wound Type: Incision -MJ Row Name Wound 01/15/241940 Left lower leg Other (comment) Wound - Properties Group Placement Date: 01/15/24 -MM Placement Time: 1940 -MM Present on Original Admission: Y -MM Side: Left -MM Orientation: lower -MM Location: leg -MM Primary Wound Type: Other -MM, cellulitis Retired Wound - Properties Group Placement Date: 01/15/24 -MM Placement Time: 1940 -MM Present on Original Admission: Y -MM Side: Left -MM Orientation: lower -MM Location: leg -MM Primary Wound Type:Other -MM, cellulitis Retired Wound - Properties Group Placement Date: 01/15/24 -MM Placement Time: 1940 -MM Present on Original Admission: Y -MM Side: Left -MM Orientation: lower -MM Location: leg -MM Primary Wound Type:Other -MM, cellulitis Retired Wound - Properties Group Date first assessed: 01/15/24 -MM Time first assessed: 1940 -MM Present on Original Admission: Y -MM Side: Left -MM Location: leg -MM Primary Wound Type: Other -MM, cellulitis Row Name Wound 07/03/25 Right anterior groin Surgical Puncture Wound - Properties Group Placement Date: 07/03/25 -RS Present on Original Admission: N -RS Side: Right -RS Orientation: anterior -RS Location: groin -RS Primary Wound Type: Surgical -RS Secondary Wound Type - Surgical: Puncture -RS Retired Wound - Properties Group Placement Date: 07/03/25 -RS Present on Original Admission: N -RS Side: Right -RS Orientation: anterior -RS Location: groin -RS Retired Wound - Properties Group Placement Date: 07/03/25 -RS Present on Original Admission: N -RS Side: Right -RS Orientation: anterior -RS Location: groin -RS Retired Wound - Properties Group Date first assessed: 07/03/25 -RS Present on Original Admission: N-RS Side: Right -RS Location: groin -RS Row Name Wound 07/03/25 1535 Right anterior groin Traumatic Skin Tear Wound - Properties Group Placement Date: 07/03/25 -RS Placement Time: 1535 -RS Side: Right -RS Orientation: anterior -RS Location: groin -RS Primary Wound Type: Traumatic -RS Secondary Wound Type - Traumatic: Skin Tear -RS Retired Wound - Properties Group Placement Date: 07/03/25 -RS Placement Time: 1535 -RS Side: Right -RS Orientation: anterior -RS Location: groin -RS Retired Wound - Properties Group Placement Date: 07/03/25 -RS Placement Time: 1535 -RS Side: Right -RS Orientation: anterior -RS Location: groin -RS Retired Wound - Properties Group Date first assessed: 07/03/25 -RS Time first assessed: 1535 -RS Side: Right -RS Location: groin -RS Row Name 07/14/25 1006 NPWT (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 Wound Therapy) 07/03/25 LEFT FOOT NPWT (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 Wound Therapy) - Properties Group Placement Date: 07/03/25 -RS Location: LEFT FOOT -RS Additional Comments: PER MD [place] -RS Therapy Setting continuous therapy -KW Pressure Setting 125 mmHg -KW 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) - Properties Group Placement Date: 07/03/25 -RS Location: LEFT FOOT -RS Additional Comments: PER MD CLARKE REYNOSO 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) - Properties Group Placement Date: 07/03/25 -RS Location: LEFT FOOT -RS Additional Comments: PER MD CLARKE REYNOSO 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) - Properties Group Placement Date: 07/03/25 -RS Location: LEFT FOOT -RS Additional Comments: PER MD CLARKE REYNOSO Row Name 07/14/25 1006 Plan of Care Review Plan of Care Reviewed With patient -KW Progress no change -KW Outcome Evaluation Patient's wound vac without leaks or issues. Patient without complaints. Patientcontinues to benefit from skilled PT services and NPWT to improve wound healing. -KW Row Name 07/14/25 1006 Positioning and Restraints Pre-Treatment Position in bed -KW Post Treatment Position bed -KW In Bed supine;call light within reach;encouraged to call for assist -KW User Llanes (r) = Recorded By, (t) = Taken By, (c) = Cosigned By Initials Name Provider Type MR CharlesMargarita RN Registered Nurse Kristan Giordano RN Registered Nurse Henrietta Blakely RN Registered Nurse Ashley Manzanares, PT Physical Therapist Mary Mayes, RN Registered Nurse RS Alessandra Gregory, RN Registered Nurse Physical Therapy Education Title: PT OT HOMICIDE INVESTIGATOR Therapies (Done) Topic: Physical Therapy (Done) Point: Mobility training (Done) Learning Progress Summary Patient Acceptance, E, VU by IG at 07/13/2025 1457 Comment: PT POC Acceptance, E, VU by IG at 07/10/2025 1532 Comment: PT POC Acceptance, E, VU by IG at 07/05/2025 1624 Comment: PT POC Acceptance, E, VU,NR by ML at 06/29/2025 0907 Acceptance, E, VU,NR by NS at 06/26/2025 1618 Point: Home exercise program (Done) Learning Progress Summary Patient Acceptance, E, VU by IG at 07/13/2025 1457 Comment: PT POC Acceptance, E, VU by IG at 07/10/2025 1532 Comment: PT POC Acceptance, E, VU by IG at 07/05/2025 1624 Comment: PT POC Acceptance, E, VU,NR by NS at 06/26/2025 1618 Point: Body mechanics (Done) Learning Progress Summary Patient Acceptance, E, VU by IG at 07/13/2025 1457 Comment: PT POC Acceptance, E, VU by IG at 07/10/2025 1532 Comment: PT POC Acceptance, E, VU by IG at 07/05/2025 1624 Comment: PT POC Acceptance, E, VU,NR by NS at 06/26/2025 1618 Point: Precautions (Done) Learning Progress Summary Patient Acceptance, E, VU by IG at 07/13/2025 1457 Comment: PT POC Acceptance, E, VU by IG at 07/10/2025 1532 Comment: PT POC Acceptance, E, VU by IG at 07/05/2025 1624 Comment: PT POC Acceptance, E, VU,NR by ML at 06/29/2025 0907 Acceptance, E, VU,NR by NS at 06/26/2025 1618 User Llanes Initials Effective Dates Name Provider Type Discipline NS 02/26/21 - Mirela Hsu, PT Physical Therapist PT ML 01/02/21 - Leonie Thomas Physical Therapist PT IG 04/19/25 - Hayden Matias PT Physical Therapist PT Recommendation and Plan Recommended discharge disposition is based on the functional assessment performed by PT/OT/Speech therapy (as applicable) and may not reflect the medical necessity determined by your provider or services covered by an individual patient's insurance plan or patient resource. Anticipated Discharge Disposition (PT): inpatient rehabilitation facility Planned Therapy Interventions (PT): balance training, bed mobility training, patient/family education, postural re-education, strengthening, transfer training Therapy Frequency (PT): daily Plan of Care Reviewed With: patient Progress: no change Progress: no change Outcome Evaluation: Patient's wound vac without leaks or issues. Patient without complaints. Patient continues to benefit from skilled PT services and NPWT to improve wound healing. Plan of Care Reviewed With: patient Time Calculation PT Charges Row Name 07/14/25 1006 Time Calculation Start Time 1006 -KW Untimed Charges 59575-[id number] Pressure wound to 50 sqcm 10 -KW Total Minutes Untimed Charges Total Minutes 10 -KW Total Minutes 10 -KW User Llanes (r) = Recorded By, (t) = Taken By, (c) = Cosigned By Initials Name Provider Type Ashley Manzanares, PT Physical Therapist Therapy Charges for Today Code Description Service Date Service Provider Modifiers Qty [id number] HC PT NEG PRESS WOUND TO 50SQCM DME1 07/14/2025 Ashley Sanchez, PT 1 PT G-Codes Outcome Measure Options: AM-PAC 6 Clicks Basic Mobility (PT) AM-PAC 6 Clicks Score (PT): 11 AM-PAC 6 Clicks Score (OT): 14 Ashley Sanchez PT 07/14/2025 1618 Occupational Therapy Notes (most recent note) Fátima Mora, OT at 07/13/25 1305 Patient Name: Trung Pool : 1955 Today's Date: 07/13/2025 Admit Date: 06/25/2025 Visit Dx: ICD-10-CM ICD-9-CM 1. Cellulitis of left lower extremity L03.116 682.6 2. Hematuria, unspecified type R31.9 599.70 3. Urinary tract infection associated with indwelling urethral catheter, initial encounter T83.183P558.64 N39.0 599.0 4. Diarrhea, unspecified type R19.7 787.91 5. PAD (peripheral artery disease) I73.9 443.9 6. Wound infection T14.8XXA 958.3 L08.9 7. Critical limb ischemia of left lower extremity I70.222 440.22 Patient Active Problem List Diagnosis Acute deep [...] traumatic brain injury Possible meningioma Moderate malnutrition Seizure disorder Adrenal insufficiency Dysphagia Pressure injury of buttock, stage 1 Pressure ulcers of skin of multiple topographic sites Cellulitis of left foot Gangrene History of DVT (deep vein thrombosis) Severe sepsis Hx of migraine headaches Coronary artery disease involving [place] coronary artery of [place] heart without angina pectoris Left leg cellulitis Altered mental status PAD (peripheral artery disease) Wound infection Type 2 diabetes mellitus with diabetic peripheral angiopathy without gangrene, without long-term current use of insulin Mixed hyperlipidemia S/P AKA (above knee amputation), right CHARLIE (acute kidney injury) Type 2 diabetes mellitus, with long-term current use of insulin Arteriovenous fistula, acquired Cellulitis Acute UTI (urinary tract infection) Diarrhea of presumed infectious origin Acute on chronic blood loss anemia BPH without obstruction/lower urinary tract symptoms GERD without esophagitis Bilateral inguinal hernia Gastroenteritis due to norovirus Past Medical History: Diagnosis Date Anemia Cellulitis Diabetes mellitus Frequent falls History of DVT (deep vein thrombosis) Hyperlipidemia Hypertension Migraines Myocardial infarction Peripheral neuropathy Pneumonia Spinal stenosis Wears dentures FULL Wears glasses Past Surgical History: Procedure Laterality Date ABOVE KNEE AMPUTATION Right AMPUTATION DIGIT Left 01/28/2024 Procedure: SECOND AND THIRD TOE AMPUTATION LEFT; Surgeon: Cecil Buenrostro Jr., MD; Location: [facility]; Service: Orthopedics; Laterality: Left; ANTERIOR CERVICAL DISCECTOMY W/ FUSION Bilateral 07/17/2020 Procedure: Cervical discectomy anterior with fusion C3-4; Surgeon: Tyree Tan MD; Location: [facility]; Service: Neurosurgery; Laterality: Bilateral; AORTOGRAM N/A 01/26/2024 Procedure: ABDOMINAL AORTIC ANGIOGRAM, LLE ANGIOGRAM, LEFT ANTERIOR TIBIAL ATHERECTOMY, LEFT ANTERIOR TIBIAL ANGIOPLASTY; Surgeon: Archie Olvera MD; Location: [facility]; Service: Vascular; Laterality: N/A; CONTRAST: 50 ML, FT: 2 MIN 54 SEC, DOSE: 66 MGY. AORTOGRAM Left 07/03/2025 Procedure: ARTERIOGRAM LOWER EXTREMITY; Surgeon: Vaughn Hollingsworth DO; Location: [facility]; Service: Vascular; Laterality: Left; FT-6MINS 24SEC 140 MGY CONTRAST -15ML BACK SURGERY FOR DISC HERNIATION CARDIAC CATHETERIZATION CARDIAC CATHETERIZATION N/A 09/04/2024 Procedure: Peripheral angiography - Left lower extremity angio - Right femoral access; Surgeon: Jared Marcano MD; Location: [facility]; Service: Peripheral Vascular; Laterality: N/A; CORONARY ANGIOPLASTY WITH STENT PLACEMENT stent x 1 INCISION AND DRAINAGE FOOT Left 06/17/2023 Procedure: LEFT FOOT DEBRIDEMENT WOUND VACUUM ASSISTED CLOSURE; Surgeon: Cecil Buenrostro Jr., MD;Location: [facility]; Service: Orthopedics; Laterality: Left; INCISION AND DRAINAGE LEG Left 07/25/2023 Procedure: INCISION AND DRAINAGE HEEL, WOUND VAC; Surgeon: Cecil Buenrostro Jr., MD; Location: [facility]; Service: Orthopedics; Laterality: Left; INCISION AND DRAINAGE LEG Left 07/03/2025 Procedure: DEBRIDEMENT WOUND, PLACEMENT OF WOUND VAC; Surgeon: Vaughn Hollingsworth DO; Location: [facility]; Service: Vascular; Laterality: Left; INTERVENTIONAL RADIOLOGY PROCEDURE N/A 05/02/2019 Procedure: IVC FILTER PLACEMENT; Surgeon: Pedro Zapien MD; Location: [facility]; Service: Interventional Radiology INTERVENTIONAL RADIOLOGY PROCEDURE Left 09/07/2024 Procedure: LEFT peroneal arteriovenous fistula embolization - Right femoral access; Surgeon: Jared Marcano MD; Location: [facility] LOCATION; Service: Cardiovascular; Laterality: Left; Please coordinate with Gautam Patel ([facility]) [phone] who will bring coils LUMBAR DISCECTOMY N/A 05/03/2019 Procedure: THORACIC LAMINECTOMY T11-12; Surgeon: Tyree Tan MD; Location: [facility]; Service: Neurosurgery General Information Row Name 07/13/25 1433 OT Time and Intention Subjective Information complains of;pain -CHRISTA Document Type therapy note (daily note) -CHRISTA Mode of Treatment occupational therapy;co-treatment -CHRISTA Patient Effort excellent -CHRISTA Symptoms Noted During/After Treatment fatigue -CHRISTA Row Name 07/13/25 143 General Information Patient Profile Reviewed yes -CHRISTA Existing Precautions/Restrictions fall;other (see comments) Contact Spore; remote R AKA, chronic [place] catheter; 07/03 transmetatarsal debridement and angiogram LLE with wound vac -CHRISTA Barriers to Rehab medically complex;previous functional deficit;physical barrier -CHRISTA Row Name 07/13/25 1436 Cognition Orientation Status (Cognition) oriented x 3;other (see comments) pt. needs things repeated or explained different ways at times -CHRISTA Row Name 07/13/25 143 Safety Issues/Impairments Affecting Functional Mobility Safety Issues Affecting Function (Mobility) insight into deficits/self- awareness;safety precaution awareness;safety precautions follow- through/compliance -CHRISTA Impairments Affecting Function (Mobility) balance;coordination;endurance/activity tolerance;pain;range of motion (ROM);sensation/sensory awareness;strength -CHRISTA User Llanes (r) = Recorded By, (t) = Taken By, (c) = Cosigned By Initials Name Provider Type CHRISTA Fátima Mora, OT Occupational Therapist Lymphedema Row Name 07/13/25 1030 Lymphedema Edema Assessment Ptting Edema Category By severity - Pitting Edema Moderate - Recorded by [MF] Duglas Mayes, PT Compression/Skin Care Compression/Skin Care skin care;wrapping location;bandaging - Skin Care washed/dried;lotion applied - Wrapping Location lower extremity - Wrapping Location LE left:;foot to knee - Wrapping Comments unna boot applied in clamshell with kerlix and spandage to secur. - Recorded by [MF] Duglas Mayes, PT User Llanes (r) = Recorded By, (t) = Taken By, (c) = Cosigned By Initials Name Effective Dates Duglas Mayes, PT 10/16/22 - Mobility/ADL's Row Name 07/13/25 1434 Bed Mobility Rolling Left Osteen (Bed Mobility) standby assist -CHRISTA Rolling Right Osteen (Bed Mobility) standby assist;minimum assist (75% patient effort) pt. started SBA and last roll as fatigued to min A -CHRISTA Scooting/Bridging Osteen (Bed Mobility) standby assist -CHRISTA Supine-Sit Osteen (Bed Mobility) standby assist -CHRISTA Sit-Supine Osteen (Bed Mobility) standby assist -CHRISTA Bed Mobility, Safety Issues decreased use of legs for bridging/pushing;impaired trunk control for bed mobility - Assistive Device (Bed Mobility) bed rails;head of bed elevated -CHRISTA Comment, (Bed Mobility) pt. sitting EOB, had to return supine so pt. could scoot to HOB for better w/c placement, pt. scooted self with railing and trendelenburg, pt. noted with large BM, pt. rolled multiple times to be cleaned, pt. then back to EOB and bed to w/c, pt. later lifted back to bed withlift and pt. had to roll further for sling to be removed - Row Name 07/13/25 1434 Transfers Transfers bed-chair transfer - Row Name 07/13/25 1434 Bed-Chair Transfer Bed-Chair Osteen (Transfers) moderate assist (50% patient effort);dependent (less than 25% patient effort);2 person assist - Assistive Device (Bed-Chair Transfers) lift device;other (see comments) - Comment, (Bed-Chair Transfer) pt. completed bed to w/c and bed elevated to help with scoot over to w/c, pt. needed overall assist of mod of 2 to block w/c, assist with multiple lines and assist with scoot over to w/c, with bed height had to use left back to w/c, with waiting for lift to charge and get assist to reset lift pt. in w/c grossly 10 minutes, worked with pt. locking and unlocking brakes- Row Name 07/13/25 1434 Activities of Daily Living BADL Assessment/Intervention toileting;upper body dressing - Row Name 07/13/25 1434 Upper Body Dressing Assessment/Training Osteen Level (Upper Body Dressing) doff;don;moderate assist (50% patient effort) - Position (Upper Body Dressing) supine - Comment, (Upper Body Dressing) soiled gown changed out, pt. limited by lines and positionting - Row Name 07/13/25 1434 Toileting Assessment/Training Osteen Level (Toileting) dependent (less than 25% patient effort);perform perineal hygiene;change pad/brief;adjust/manage clothing - Position (Toileting) supine - User Llanes (r) = Recorded By, (t) = Taken By, (c) = Cosigned By Initials Name Provider Type CHRISTA Fátima Mora, OT Occupational Therapist Obj/Interventions Row Name 07/13/25 1439 Shoulder (Therapeutic Exercise) Shoulder (Therapeutic Exercise) AROM (active range of motion) - Shoulder AROM (Therapeutic Exercise) bilateral;flexion;extension;10 repetitions;sitting - Row Name 07/13/25 1439 Elbow/Forearm (Therapeutic Exercise) Elbow/Forearm (Therapeutic Exercise) strengthening exercise - Elbow/Forearm Strengthening (Therapeutic Exercise) bilateral;flexion;extension;20 repititions;sitting mild to moderate manual resistance given/also working with pt. keeping midline with resistance - Row Name 07/13/25 1439 Motor Skills Therapeutic Exercise shoulder;elbow/forearm - Row Name 07/13/25 1439 Balance Static Sitting Balance supervision - Dynamic Sitting Balance standby assist - Position, Sitting Balance unsupported;sitting edge of bed -CHRISTA Balance Interventions weight shifting activity -CHRISTA Comment, Balance weight shift and scooting to w/c, resistance with TE -CHRISTA User Llanes (r) = Recorded By, (t) = Taken By, (c) = Cosigned By Initials Name Provider Type Fátima Castle, OT Occupational Therapist Goals/Plan Row Name 07/13/25 144 Bed Mobility Goal 1 (OT) Activity/Assistive Device (Bed Mobility Goal 1, OT) rolling to left;rolling to right -CHRISTA Osteen Level/Cues Needed (Bed Mobility Goal 1, OT) minimum assist (75% or more patient effort);verbal cues required;nonverbal cues (demo/gesture) required -CHRISTA Time Frame (Bed Mobility Goal 1, OT) lobsterman goal (LTG);10 days -CHRISTA Progress/Outcomes (Bed Mobility Goal 1, OT) goal met -CHRISTA Row Name 07/13/251443 Transfer Goal 1 (OT) Activity/Assistive Device (Transfer Goal 1, OT) [id number] -CHRISTA Osteen Level/Cues Needed (Transfer Goal 1, OT) moderate assist (50-74% patient effort) -CHRISTA Progress/Outcome (Transfer Goal 1, OT) good progress toward goal;goal ongoing -CHRISTA Row Name 07/13/251443 Bathing Goal 1 (OT) Activity/Device (Bathing Goal 1, OT) upper body bathing -CHRISTA Osteen Level/Cues Needed (Bathing Goal 1, OT) minimum assist (75% or more patient effort);set-up required -CHRISTA Time Frame (Bathing Goal 1, OT) short term goal (STG);5 days -CHRISTA Progress/Outcomes (Bathing Goal 1, OT) goal ongoing -CHRISTA Row Name 07/13/25 1445 Toileting Goal 1 (OT) Activity/Device (Toileting Goal 1, OT) adjust/manage clothing;perform perineal hygiene;commode, bedside with drop arms -CHRISTA Osteen Level/Cues Needed (Toileting Goal 1, OT) moderate assist (50-74% patient effort) -CHRISTA Time Frame (Toileting Goal 1, OT) short term goal (STG);5 days -CHRISTA Progress/Outcome (Toileting Goal 1, OT) goal no longer appropriate -CHRISTA Row Name 07/13/25 1444 Strength Goal 1 (OT) Strength Goal 1 (OT) Pt. will completed UE and core TE with progressive reps and resistance to support ADL and transfer independence. -CHRISTA Time Frame (Strength Goal 1, OT) lobsterman goal (LTG);10 days -CHRISTA Progress/Outcome (Strength Goal 1, OT) continuing progress toward goal;goal ongoing -CHRISTA User Llanes (r) = Recorded By, (t) = Taken By, (c) = Cosigned By Initials Name Provider Type Fátima Castle, OT Occupational Therapist Clinical Impression Row Name 07/13/25 1441 Pain Assessment Pretreatment Pain Rating 04/22 -CHRISTA Posttreatment Pain Rating 04/22 -CHRISTA Pain Location buttock -CHRISTA Pain Side/Orientation bilateral -CHRISTA Pain Management Interventions positioning techniques utilized -CHRISTA Response to Pain Interventions activity participation with tolerable pain -CHRISTA Pre/Posttreatment Pain Comment pt. was cleaned in supine with new banages placed to protect buttocks with slide -CHRISTA Row Name 07/13/25 1441 Plan of Care Review Plan of Care Reviewed With patient -CHRISTA Progress improving -CHRISTA Outcome Evaluation Pt. was able to progress today in completing a bed to w/c transfer with mod of 2. Unable to move back to bed due to bed height with w/c. Pt. with overall improving balance and endurance. LE elevated with pillow in bed and while in w/c for edema control. Good participation with core and UE TE. -CHRISTA Row Name 07/13/25 1441 Therapy Assessment/Plan (OT) Rehab Potential (OT) fair -CHRISTA Therapy Frequency (OT) daily -CHRISTA Row Name 07/13/25 1441 Therapy Plan Review/Discharge Plan (OT) Anticipated Discharge Disposition (OT) intermediate facility -CHRISTA Row Name 07/13/25 1441 Vital Signs Pre Systolic BP Rehab 124 -CHRISTA Pre Treatment Diastolic BP 69 -CHRISTA Pretreatment Heart Rate (beats/min) 77 -CHRISTA Posttreatment Heart Rate (beats/min) 76 -CHRISTA O2 Delivery Pre Treatment room air -CHRISTA O2 Delivery Intra Treatment room air -CHRISTA O2 Delivery Post Treatment room air -CHRISTA Pre Patient Position Sitting -CHRISTA Intra Patient Position Sitting -CHRISTA Post Patient Position Supine -CHRISTA Row Name 07/13/25 1441 Positioning and Restraints Pre-Treatment Position in bed sitting EOB -CHRISTA Post Treatment Position bed -CHRISTA In Bed fowlers;call light within reach;encouraged to call for assist;exit alarm on;side rails up x2;LLE elevated;L heel elevated;notified nsg -CHRISTA User Llanes (r) = Recorded By, (t) = Taken By, (c) = Cosigned By Initials Name Provider Type Fátima Castle, SOCO Occupational Therapist Outcome Measures Row Name 07/13/25 1445 How much help from another is currently needed... Putting on and taking off regular lower body clothing? 1 -CHRISTA Bathing (including washing, rinsing, and drying) 2 -CHRISTA Toileting (which includes using toilet bed chavis or urinal) 1 -CHRISTA Putting on and taking off regular upper body clothing 3 -CHRISTA Taking care of personal grooming (such as brushing teeth) 3 -CHRISTA Eating meals 4 -CHRISTA AM-PAC 6 Clicks Score (OT) 14 -CHRISTA Row Name 07/13/25 1214 07/13/25 0840 How much help from another person do you currently need... Turning from your back to your side while in flat bed without using bedrails? 3 -SB 3 -SB Moving from lying on back to sitting on the side of a flat bed without bedrails? 3 -SB 3 -SB Moving to and from a bed to a chair (including a wheelchair)? 1 -SB 1 -SB Standing up from a chair using your arms (e.g., wheelchair, bedside chair)? 1 - SB 1 -SB Climbing 3-5 steps with a railing? 1 -SB 1 -SB To walk in hospital room? 1 -SB 1 -SB AM-PAC 6 Clicks Score (PT) 10 -SB 10 -SB Highest Level of Mobility Goal Move to Chair/Commode-4 -SB Move to Chair/Commode-4 -SB Row Name 07/13/25 1445 Functional Assessment Outcome Measure Options AM-PAC 6 Clicks Daily Activity (OT) -CHRISTA User Llanes (r) = Recorded By, (t) = Taken By, (c) = Cosigned By Initials Name Provider Type Fátima Castle OT Occupational Therapist Iggy Thakur, RN Registered Nurse Occupational Therapy Education Title: PT OT HOMICIDE INVESTIGATOR Therapies (Done) Topic: Occupational Therapy (Done) Point: ADL training (Done) Learning Progress Summary Patient Acceptance, E,D, VU,NR by CHRISTA at 07/13/2025 1446 Comment: transfer safety with lines and wounds, w/c brake use, UE TE Acceptance, E, VU,NR by 1 at 07/10/2025 1624 Comment: OT POC; snf goals; rehab potential; discharge planning Point: Home exercise program (Done) Learning Progress Summary Patient Acceptance, E,D, VU,NR by at 07/13/2025 1446 Comment: transfer safety with lines and wounds, w/c brake use, UE TE Point: Precautions (Done) Learning Progress Summary Patient Acceptance, E,D, VU,NR by CHRISTA at 07/13/2025 1446 Comment: transfer safety with lines and wounds, w/c brake use, UE TE Point: Body mechanics (Done) Learning Progress Summary Patient Acceptance, E,D, VU,NR by at 07/13/2025 1446 Comment: transfer safety with lines and wounds, w/c brake use, UE TE User Llanes Initials Effective Dates Name Provider Type Discipline 03/23/23 - Fátima Mora, OT Occupational Therapist OT [facility] 02/26/21 - Juani Clark OT Occupational Therapist OT OT Recommendation and Plan Recommended discharge disposition is based on the functional assessment performed by PT/OT/Speech therapy (as applicable) and may not reflect the medical necessity determined by your provider or services covered by an individual patient's insurance plan or patient resource. Planned Therapy Interventions (OT): activity tolerance training, adaptive equipment training, BADL retraining, functional balance retraining, occupation/activity based interventions, patient/caregiver education/training, strengthening exercise, transfer/mobility retraining, ROM/therapeutic exercise Therapy Frequency (OT): daily Plan of Care Review Plan of Care Reviewed With: patient Progress: improving Outcome Evaluation: Pt. was able to progress today in completing a bed to w/c transfer with mod of 2. Unable to move back to bed due to bed height with w/c. Pt. with overall improving balance and endurance. LE elevated with pillow in bed and while in w/c for edema control. Good participation with core and UE TE. Time Calculation: Time Calculation- OT Row Name 07/13/256 Time Calculation- OT OT Start Time 1305 -CHRISTA OT Received On 07/13/25 -CHRISTA OT Goal Re-Cert Due Date 07/15/25 -CHRISTA Timed Charges 71041 - OT Therapeutic Exercise Minutes 15 -CHRISTA 94853 - OT Therapeutic Activity Minutes 15 -CHRISTA 40123 - OT Self Care/Mgmt Minutes 15 -CHRISTA Total Minutes Timed Charges Total Minutes 45 -CHRISTA Total Minutes 45 -CHRISTA User [place]anes (r) = Recorded By, (t) = Taken By, (c) = Cosigned By Initials Name Provider Type Fátima Castle OT Occupational Therapist Therapy Charges for Today Code Description Service Date Service Provider Modifiers Qty [id number] OT THER PROC EA 15 MIN 07/13/2025 Fátima Mora OT GO 1 [id number] OT THERAPEUTIC ACT EA 15 MIN 07/13/2025 Fátima Mora OT GO 1 [id number] HC OT SELF CARE/MGMT/TRAIN EA 15 MIN 07/13/2025 Fátima Mora OT GO 1 Fátima Mora OT 07/13/2025 1447 documented in this encounter Discharge Instructions * Attachments The following attachments cannot be sent through Care Everywhere. * Acetaminophen Capsules or Tablets (Citizen Of [place]) * Apixaban Tablets (Citizen Of [place]) * Clopidogrel Tablets (Citizen Of [place]) * Famotidine Tablets (Citizen Of [place]) * Naloxone Nasal [place] (Citizen Of [place]) * Oxycodone Capsules or Tablets (Citizen Of [place]) * Ziprasidone Capsules (Citizen Of [place]) documented in this encounter Medications at Time of Discharge acetaminophen (TYLENOL) 500 MG tablet Take 2 tablets by mouth Every 8 (Eight) Hours for 30 days. 180 tablet 08/01/2025 apixaban (ELIQUIS) 5 MG tablet tablet Take [...] 30 tablet 02/05/2024 3:20 PM EDT 02/05/2024 famotidine (PEPCID) 20 MG tablet Take 1 tablet by mouth 2 (Two) Times a Day Before Meals. 60 tablet 2 08/01/2025 2:24 PM EST 08/01/2025 finasteride (PROSCAR) 5 MG tablet Take 1 [...] tablet Take 1 tablet by mouth Daily. naloxone (NARCAN) 4 MG/0.1ML nasal spray Call 911. Don't prime. [place] in 1 nostril for overdose. Repeat in 2-3 minutes in other nostril if no or minimal breathing/respons iveness. 2 each 08/01/2025 2:24 PM EST 08/01/2025 ondansetron (ZOFRAN) 4 MG tablet Take 1 tablet by mouth Every 8 (Eight) Hours As Needed for Nausea or Vomiting. vitamin C (ASCORBIC ACID) 250 MG tablet Take 2 tablets by mouth Daily. ziprasidone (GEODON) 20 MG capsule Take 1 capsule by mouth Every Night. 30 capsule 08/01/2025 oxyCODONE (ROXICODONE) 15 MG immediate release tabletIndication s:Cellulitis of left lower extremity Take 1 tablet by mouth Every 4 (Four) Hours As Needed for Severe Pain for up to 3 days. 18 tablet 08/01/2025 2:24 PM EST 08/01/2025 5 documented as of this encounter Progress Notes * Carolina Sargent II DO - 08/02/2025 7:41 AM EST Patient did not leave hospital due to EMS transport delay. There [facility] no facilities [facility] wh[facility] accept him and he refuses to search outside of [place], no other option other than to d/c home. He refuses hospice even though he is aware he is high risk of ongoing life threatening infection. Patient on phone with someone and will not hang up to speak with me. No medical changes, no changes to d/c as planned yesterday. * Stacey Garcia RN - 07/31/2025 4:29 PM EST Continued Stay Note [facility] Patient Name: Trung Pool Today's Date: 07/31/2025 Admit Date: 06/25/2025 Plan: Home with Home Healt Discharge Plan Row Name 07/31/25 0818 Plan Plan Home with Home Health Plan Comments Noted in nurse outreach case manager's note that pt has opted to go home with home health and the medicaid waiver. Will close the hospice referral. Please call [phone] if can be of further assistance. Row Name 07/31/25 4958 Plan Plan Plan Comments Final Discharge Disposition Code Discharge Codes No documentation. Expected Discharge Date and Time Expected Discharge Date Expected Discharge Time Jul 30, 2025 Stacey Garcia RN * Samia Barnes RN - 07/31/2025 3:44 PM EST Continued Stay Note [place] Patient Name: Trung Pool Today's Date: 07/31/2025 Admit Date: 06/25/2025 Plan: Ongoing Discharge Plan Row Name 07/31/25 9770 Plan Plan Ongoing Plan Comments Long discussion with patient regarding disposition,as [facility] as has no other facility that patient agreed to. [facility] and [facility] is not agreeable to this. We then discussed discharge home with home health and waiver services and he is agreeable. Contacted patients community coordinator, Susie [phone], who states she will notify patients waiver services through [facility] and try and increase his aide from 2 days/week to 3 days/week. She also reports that he has ahospital bed with trapeze, electric wheelchair and bedside commode for use at home. Contacted patient's home health agency, [facility], [place] [phone], who states they can provide intermediate, PT and OT. Notified Palliative Care, Marialuisa Resendez regarding above. Case Management will continue to follow and assist with disposition arrangements. Final Discharge Disposition Code 06 - home with home health care Discharge Codes No documentation. Expected Discharge Date and Time Expected Discharge Date Expected Discharge Time Jul 30, 2025 Samia Barnes RN * Carolina Sargent II, DO - 07/31/2025 8:44 AM EST Images from the original note were not included. [facility] Medicine Services PROGRESS NOTE Patient Name: Trung Pool : 1955 Date of Admission: 06/25/2025 Primary Care Physician: Gustavo Mehta MD Subjective Subjective CC: f/u leg wounds HPI: Up in bed talking to house keeping staff. Complaining of ongoing pain but no severe changes. Objective Objective Vital Signs: Temp: [97.5 ??F (36.4 ??C)-97.9 ??F (36.6 ??C)] 97.7 ??F (36.5 ??C) Heart Rate: [67-84] 67 Resp: [18] 18 BP: (133-142)/(64-88) 133/72 Physical Exam: Constitutional: No acute distress, awake, alert HENT: NCAT, mucous membranes moist Respiratory: Clear to auscultation bilaterally, respiratory effort normal Cardiovascular: RRR, no murmurs, rubs, or gallops Gastrointestinal: Positive bowel sounds, soft, nontender, nondistended, obese abd Musculoskeletal: No bilateral ankle edema, legs wrapped Psychiatric: Appropriate affect, cooperative Neurologic: Oriented x 3, strength symmetric in all extremities, Cranial Nerves grossly intact to confrontation, speech clear Skin: No rashes Results Reviewed: LAB RESULTS: Lab 07/25/25 0617 SODIUM 140 POTASSIUM 5.2 CHLORIDE 109* CO2 20.4* ANION GAP 10.6 BUN 27.2* CREATININE 1.02 EGFR 78.6 GLUCOSE 89 CALCIUM 9.1 Brief Urine Lab Results (Last result in the past 365 days) Color Clarity Blood Leuk Est Nitrite Protein CREAT Urine HCG 07/14/2552 Yellow Clear Trace Moderate (2+) Negative 30 mg/dL (1+) Microbiology Results Abnormal Procedure Component Value - Date/Time Urine Culture - Urine, Indwelling Urethral Catheter [[id number]] (Abnormal) Collected: 07/14/2552 Lab Status: Final result Specimen: Urine from Indwelling Urethral Catheter Updated: 07/15/25 1329 Urine Culture Yeast isolated Narrative: No further workup for yeast Colonization of the urinary tract without infection is common. Treatment is discouraged unless the patient is symptomatic, , or undergoing an invasive urologic procedure. Urine Culture - Urine, Indwelling Urethral Catheter [[id number]] (Abnormal) (Susceptibility) Collected: 06/25/252000 Lab Status: Final result Specimen: Urine from Indwelling Urethral Catheter Updated: 06/30/25 1001 Urine Culture >100,000 CFU/mL Proteus mirabilis Narrative: Colonization of the urinary tract without infection is common. Treatment is discouraged unless the patient is symptomatic, , or undergoing an invasive urologic procedure. Susceptibility Proteus mirabilis MURRAY Amoxicillin + Clavulanate Susceptible Ampicillin Resistant Ampicillin + Sulbactam Intermediate Cefazolin (Urine) Resistant Cefepime Resistant Ceftazidime Susceptible Ceftriaxone Resistant Cefuroxime axetil Resistant Ciprofloxacin Resistant Gentamicin Susceptible Levofloxacin Resistant Nitrofurantoin Resistant Piperacillin + Tazobactam Susceptible Trimethoprim + Sulfamethoxazole Resistant Blood Culture - Blood, Hand, Right [[id number]] (Abnormal) (Susceptibility) Collected: 06/25/252029 Lab Status: Edited Result - FINAL Specimen: Blood from Hand, Right Updated: 06/29/25 0713 Blood Culture Enterococcus faecium Comment: Infectious disease consultation is highly recommended. Isolated from Anaerobic Bottle Gram Stain Anaerobic Bottle Gram positive cocci in chains Narrative: Less than seven (7) mL's of blood was collected. Insufficient quantity may yield false negative results. requested linezolid & daptomycin 06/28/25 Susceptibility Enterococcus faecium MURRAY Method Not Specified Ampicillin Susceptible Daptomycin Susceptible dose dependent Gentamicin High Level Synergy Susceptible Linezolid Susceptible (C) [1] Vancomycin Susceptible [1] Appended report. These results have been appended to a previously final verified report. Wound Culture - Swab, Foot, Left [[id number]] (Abnormal) (Susceptibility) Collected: 06/25/25 1818 Lab Status: Final result Specimen: Swab from Foot, Left Updated: 06/29/25 0645 Wound Culture Heavy growth (4+) Staphylococcus aureus, MRSA Comment: Methicillin resistant Staphylococcus aureus, Patient may be an isolation risk. Moderate growth (3+) Morganella morganii ssp morganii Moderate growth (3+) Proteus mirabilis ESBL Comment: Consider infectious disease consult. Susceptibility results may not correlate to clinical outcomes. Gram Stain Few (2+) WBCs seen Few (2+) Gram positive cocci in pairs, chains and clusters Few (2+) Gram negative bacilli Susceptibility Staphylococcus aureus, MRSA MURRAY Clindamycin Susceptible Erythromycin Resistant Oxacillin Resistant Rifampin Susceptible Tetracycline Susceptible Trimethoprim + Sulfamethoxazole Resistant Vancomycin Susceptible Susceptibility Morganella morganii ssp morganii MURRAY Method Not Specified Amoxicillin + Clavulanate Resistant Ampicillin Resistant Ampicillin + Sulbactam Resistant Cefazolin (Non Urine) Resistant Cefepime Susceptible Cefotaxime Susceptible Ceftazidime Susceptible Cefuroxime axetil Resistant Ciprofloxacin Resistant Gentamicin Susceptible Levofloxacin Resistant Piperacillin + Tazobactam Susceptible Tetracycline Susceptible Trimethoprim + Sulfamethoxazole Resistant Susceptibility Proteus mirabilis ESBL MURRAY Ciprofloxacin Resistant Ertapenem Susceptible Levofloxacin Resistant Meropenem Susceptible Tetracycline Resistant Trimethoprim + Sulfamethoxazole Resistant Susceptibility Comments Morganella morganii ssp morganii Cefotaxime susceptibility can be used as a surrogate for ceftriaxone susceptibility Proteus mirabilis ESBL With the exception of urinary-sourced infections, aminoglycosides should not be used as monotherapy. Blood Culture ID, PCR - Blood, Hand, Right [[id number]] (Abnormal) Collected: 06/25/25 2030 Lab Status: Final result Specimen: Blood from Hand, Right Updated: 06/26/252101 BCID, PCR Enterococcus faecium. Zee/B (vancomycin resistance gene) not detected. Identification byBCID2 PCR. BOTTLE TYPE Anaerobic Bottle Narrative: Infectious disease consultation is highly recommended to rule out distant foci of infection. MRSA Screen, PCR (Inpatient) - Swab, Nares [[id number]] (Abnormal) Collected: 06/26/2545 Lab Status: Final result Specimen: Swab from Nares Updated: 06/26/25 0850 MRSA PCR Positive Narrative: The negative predictive value of this diagnostic test is high and should only be used to consider de-escalating anti-MRSA therapy. A positive result may indicate colonization with MRSA and must be correlated clinically. Gastrointestinal Panel, PCR - Stool, Per Rectum [[id number]] (Abnormal) Collected: 06/26/2545 Lab Status: Final result Specimen: Stool from Per Rectum Updated: 06/26/2550 Campylobacter Not Detected Plesiomonas shigelloides Not Detected Salmonella Not Detected Vibrio Not Detected Vibrio cholerae Not Detected Yersinia enterocolitica Not Detected Enteroaggregative E. coli (EAEC) Not Detected Enteropathogenic E. coli (EPEC) Not Detected Enterotoxigenic E. coli (ETEC) lt/st Not Detected Shiga-like toxin-producing E. coli (STEC) stx1/stx2 Not Detected Shigella/Enteroinvasive E. coli (EIEC) Not Detected Cryptosporidium Not Detected Cyclospora cayetanensis Not Detected Entamoeba histolytica Not Detected Giardia lamblia Not Detected Adenovirus F40/41 Not Detected Astrovirus Not Detected Norovirus GI/GII Detected Comment: If a positive Norovirus result is inconsistent with clinical presentation, the positive Norovirus result should be confirmed using another method. Rotavirus A Not Detected Sapovirus (I, II, IV or V) Not Detected Clostridioides difficile Toxin - Stool, Per Rectum [[id number]] (Abnormal) Collected: 06/26/2545 Lab Status: Final result Specimen: Stool from Per Rectum Updated: 06/26/25 5885 Narrative: The following orders were created for panel order Clostridioides difficile Toxin - Stool, Per Rectum. Procedure Abnormality Status --------- ------ Clostridioides difficile...[[id number]] Abnormal Final result Please view results for these tests on the individual orders. Clostridioides difficile Toxin, PCR - Stool, Per Rectum [[id number]] (Abnormal) Collected: 06/26/25 0046 Lab Status: Final result Specimen: Stool from Per Rectum Updated: 06/26/25 0755 Toxigenic C. difficile by PCR Detected Narrative: DNA from a toxigenic strain of C.difficile has been detected. No radiology results from the last 24 [...] PT/OT/ ST Therapy Plans Current medications: Scheduled Meds:acetaminophen, 1,000 mg, Oral, Q8H apixaban, 5 mg, Oral, BID vitamin C, 500 mg, Oral, Daily baclofen, 5 mg, Oral, Q12H carvedilol, 3.125 mg, Oral, BID With Meals clopidogrel, 75 mg, Oral, Daily famotidine, 20 mg, Oral, BID AC finasteride, 5 mg, Oral, Daily folic acid, 1 mg, Oral, Daily gabapentin, 400 mg, Oral, Q8H insulin glargine, 22 Units, Subcutaneous, Nightly insulin lispro, 2-7 Units, Subcutaneous, TID With Meals lamoTRIgine, 100 mg, Oral, Daily lamoTRIgine, 250 mg, Oral, Nightly methenamine, 1 g, Oral, BID With Meals multivitamin with minerals, 1 tablet, Oral, Daily oxyCODONE, 10 mg, Oral, Q4H thiamine, 100 mg, Oral, Daily vancomycin, 125 mg, Oral, Daily Followed by [START ON 08/01/2025] vancomycin, 125 mg, Oral, Weekly ziprasidone, 20 mg, Oral, Nightly Or ziprasidone, 10 mg, Intramuscular, Nightly Continuous Infusions: PRN Meds:. aluminum-magnesium hydroxide-simethicone benzonatate senna-docusate sodium AND polyethylene glycol AND bisacodyl AND bisacodyl dextrose dextrose diphenhydrAMINE-zinc acetate glucagon (human recombinant) influenza vaccine ipratropium-albuterol ondansetron oxyCODONE ziprasidone Assessment & Plan Assessment & Plan Active Hospital Problems Diagnosis POA Wound infection [T14.8XXA, L08.9] Unknown Acute UTI (urinary tract infection) [N39.0] Yes Diarrhea of presumed infectious origin [R19.7] Yes Acute on chronic blood loss anemia [D62] Yes BPH without obstruction/lower urinary tract symptoms [N40.0] Yes GERD without esophagitis [K21.9] Yes Bilateral inguinal hernia [K40.20] Yes Gastroenteritis due to norovirus [A08.11] Yes Cellulitis [L03.90] Yes Type 2 diabetes mellitus, with long-term current use of insulin [E11.9, Z79.4] Not Applicable PAD (peripheral artery disease) [I73.9] Yes Coronary artery disease involving [place] coronary artery of [place] heart without angina pectoris [I25.10] Yes Seizure disorder [G40.909] Yes Primary hypertension [I10] Yes Resolved Hospital Problems No resolved problems to display. Brief Hospital Course to date: Trung Pool is a 70yoM with PMH significant for HTN, HLD, CAD s/p stenting, PAD s/p R BKA and prior LLE revascularization and toe amputations, recurrent LLE cellulitis / wound infections, chronicpain / peripheral neuropathy, insulin- dependent DMII, chronic urinary retention with [place] catheter, seizure disorder with history of pseudoseizures, obesity and chronic debility. Last admitted to [facility] 06/02-06/11/25 for LLE cellulitis with failure of outpatient treatment. Wound cultures grew Proteus and concern for ESBL per lab and MRSA. He completed 7 days of IV abx prior to DC home. He has declined LLE amputation He returned to [facility] ED on 06/25/25 for evaluation of hematuria, L foot drainage, diarrhea and fatigue. Found to have Norovirus and Enterococcus bacteremia. Hospital course complicated by hospital delirium on 07/14 Hospital-acquired delirium - waxing and waning - neurology follows - currently Ox3. Some intermittent situation confusion/ forgetfulness per sister - miguelito nightly/ prn not used LLE Wound Infection w/Cellulitis Severe PAD History of right BKA, LLE revascularization and toe amputation Enterococcus faecium bacteremia - MRI L foot showed edema in the distal first and second metatarsal diaphyses at the resection margins, osteomyelitis not excluded. CT angio left lower extremity revealed moderate focal narrowing at the junction of the SFA and the popliteal artery. 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 - LLE arterial dopplers with abnormal waveforms suggest inflow disease. Moderate 60% stenosis in the left SFA, the left CHIP appears to be occluded filling via collaterals retrograde - Blood cultures positive for Enterococcus faecium - ID/Dr. Andres following - s/p antibiotic therapy - Vascular surgery consulted - follows with Dr. Marcano. He is s/p LLE excisional debridement and wound VAC application on 07/03/25. - PT wound care following, patient self removed his wound vac on 07/22, currently PT wound care not planning to replace it - Continue Plavix / Eliquis - Palliative Care follows, patient now appears agreeable to Hospice care. - increased oxycodone. Hyperkalemia - Potassium of 6.2 07/11 - s/p lokelma - refused further dosing of lokelma. Continue to hold entresto Acute CAUTI and hematuria, POA History of BPH Chronic urinary retention with chronic De [place] Santos catheter - Urine culture grew Yeast - H&H stable, resumed Eliquis 07/07 - Urology consulted - recommend continue De [place] Santos and finasteride. - Needs OP referral to urology at [place] for long-term management pending [facility] - continue methenamine Diarrhea Norovirus / C. Diff colonization - GI PCR panel with norovirus, C. difficile toxin is positive but antigen negative suggest colonization - CT imaging suggestive of proctitis - oral vancomycin taper until 08/01 Acute on Chronic anemia, possible blood loss - Continue to monitor H&H, stable, resumed eliqius - Transfuse PRBC if hemoglobin <7 Type 2 diabetes Transient hypoglycemia - Previously well-controlled with A1c 7.6 (08/2024), A1c 7.82 Seizure disorder History of pseudoseizures - Continue lamotrigine - Seizure like activity noted upon awaking from procedure on 07/03. Aborted with propofol and versed. My partner discussed with general neurology over the phone. Recommended PRN ativan for now and outpatient follow up with Dr. Anand as seizures are likely 2/2 anesthesia/procedure. S/p EEG. If seizure like activity recurs while inpatient, recommended loading with 1g of Keppra and placing general neurology consult. - No recurrence of pseudoseizure GERD without Esophagitis - continue pepcid Bilateral Inguinal Hernia, incidental finding on CT - CT imaging revealed bilateral inguinal hernias, larger on the left containing a partial loop of sigmoid colon, without proximal dilatation. - General surgery consult; recommend watchful waiting, poor operative candidate for an elective procedure while asymptomatic, and has signed off GOC: - At this point still remains up in the air whether or not patient is agreeable to LTC or just wants to return home with home health. CM to address with him further today given ongoing difficulty finding accepting facility. Expected Discharge Location and Transportation: Expected Discharge Expected Discharge Date: 07/30/2025; Expected Discharge Time: VTE Prophylaxis: Pharmacologic VTE prophylaxis orders are present. AM-PAC 6 Clicks Score (PT): 11 (07/30/25 1556) CODE STATUS: Code Status and Medical Interventions: No CPR (Do Not Attempt to Resuscitate); Comfort Measures Ordered at: 07/25/25 1024 Code Status (Patient has no pulse and is not breathing): No CPR (Do Not Attempt to Resuscitate) Medical Interventions (Patient has pulse or is breathing): Comfort Measures Level Of Support Discussed With: Patient Health Care Surrogate Carolina Sargent II, DO 07/31/25 * Stacey Garcia RN - 07/30/2025 5:57 PM EST Continued Stay Note [place] Patient Name: Trung Pool Today's Date: 07/30/2025 Admit Date: 06/25/2025 Plan: Placement Discharge Plan Row Name 07/30/25 7858 Plan Plan Placement Plan Comments liaison planner continues to follow on the periphery while placement is found. Pleasecall [phone] if can be of further assistance. Discharge Codes No documentation. Expected Discharge Date and Time Expected Discharge Date Expected Discharge Time Jul 30, 2025 Stacey Garcia RN * Talisha Resendez APRN - 07/30/2025 3:05 PM EST Reviewed chart. Ongoing comfort measures, patient tolerating PO. Awaiting disposition. Will continue to follow. * Samia Barnes, RN - 07/30/2025 11:24 AM EST Continued Stay Note [facility] Patient Name: Trung Pool Today's Date: 07/30/2025 Admit Date: 06/25/2025 Plan: Ongoing Discharge Plan Row Name 07/30/25 1121 Plan Plan Ongoing Plan Comments Spoke with patient at bedside today and Mr. Pool states that he wants to go to a facility for short term rehab and then return home. [facility] is his first choice but not in network with his Medicare Advantage plan. Have faxed referral to [facility] in [place] as patient states this is also close to his home. Case Management will also begin contacting other facilities to assess bed availablitlity and will update with progress. Final Discharge Disposition Code 03 - intermediate facility (SNF) Discharge Codes No documentation. Expected Discharge Date and Time Expected Discharge Date Expected Discharge Time Jul 30, 2025 Samia Barnes RN * Carolina Sargent II, - 07/30/2025 9:13 AM EST Images from the original note were not included. [facility] Medicine Services PROGRESS NOTE Patient Name: Trung Pool : 1955 Date of Admission: 06/25/2025 Primary Care Physician: Gustavo Mehta MD Subjective Subjective CC: f/u leg wounds HPI: Up in bed. C/O mild leg pain but otherwise okay. Eating some breakfast. Objective Objective Vital Signs: Temp: [97.8 ??F (36.6 ??C)-98.2 ??F (36.8 ??C)] 98.2 ??F (36.8 ??C) Heart Rate: [70-95] 79 Resp: [16-18] 16 BP: (111-133)/(60-81) 129/71 Physical Exam: Constitutional: No acute distress, awake, alert HENT: NCAT, mucous membranes moist Respiratory: Clear to auscultation bilaterally, respiratory effort normal Cardiovascular: RRR, no murmurs, rubs, or gallops Gastrointestinal: Positive bowel sounds, soft, nontender, nondistended Musculoskeletal: Leg dressed Psychiatric: Appropriate affect, cooperative Neurologic: Oriented x 3, strength symmetric in all extremities, Cranial Nerves grossly intact to confrontation, speech clear Skin: No rashes Results Reviewed: LAB RESULTS: Lab 07/25/25 0617 07/24/25 0403 SODIUM 140 138 POTASSIUM 5.2 6.3* CHLORIDE 109* 107 CO2 20.4* 22.2 ANION GAP 10.6 8.8 BUN 27.2* 29.3* CREATININE 1.02 1.35* EGFR 78.6 56.1* GLUCOSE 89 115* CALCIUM 9.1 8.8 Brief Urine Lab Results (Last result in the past 365 days) Color Clarity Blood Leuk Est Nitrite Protein CREAT Urine HCG 07/14/2552 Yellow Clear Trace Moderate (2+) Negative 30 mg/dL (1+) Microbiology Results Abnormal Procedure Component Value - Date/Time Urine Culture - Urine, Indwelling Urethral Catheter [[id number]] (Abnormal) Collected: 07/14/2552 Lab Status: Final result Specimen: Urine from Indwelling Urethral Catheter Updated: 07/15/25 1329 Urine Culture Yeast isolated Narrative: No further workup for yeast Colonization of the urinary tract without infection is common. Treatment is discouraged unless the patient is symptomatic, , or undergoing an invasive urologic procedure. Urine Culture - Urine, Indwelling Urethral Catheter [[id number]] (Abnormal) (Susceptibility) Collected: 06/25/252000 Lab Status: Final result Specimen: Urine from Indwelling Urethral Catheter Updated: 06/30/25 1001 Urine Culture >100,000 CFU/mL Proteus mirabilis Narrative: Colonization of the urinary tract without infection is common. Treatment is discouraged unless the patient is symptomatic, , or undergoing an invasive urologic procedure. Susceptibility Proteus mirabilis MURRAY Amoxicillin + Clavulanate Susceptible Ampicillin Resistant Ampicillin + Sulbactam Intermediate Cefazolin (Urine) Resistant Cefepime Resistant Ceftazidime Susceptible Ceftriaxone Resistant Cefuroxime axetil Resistant Ciprofloxacin Resistant Gentamicin Susceptible Levofloxacin Resistant Nitrofurantoin Resistant Piperacillin + Tazobactam Susceptible Trimethoprim + Sulfamethoxazole Resistant Blood Culture - Blood, Hand, Right [[id number]] (Abnormal) (Susceptibility) Collected: 06/25/25 2030 Lab Status: Edited Result - FINAL Specimen: Blood from Hand, Right Updated: 06/29/25 0713 Blood Culture Enterococcus faecium Comment: Infectious disease consultation is highly recommended. Isolated from Anaerobic Bottle Gram Stain Anaerobic Bottle Gram positive cocci in chains Narrative: Less than seven (7) mL's of blood was collected. Insufficient quantity may yield false negative results. requested linezolid & daptomycin 06/28/25 Susceptibility Enterococcus faecium MURRAY Method Not Specified Ampicillin Susceptible Daptomycin Susceptible dose dependent Gentamicin High Level Synergy Susceptible Linezolid Susceptible (C) [1] Vancomycin Susceptible [1] Appended report. These results have been appended to a previously final verified report. Wound Culture - Swab, Foot, Left [[id number]] (Abnormal) (Susceptibility) Collected: 06/25/25 181 Lab Status: Final result Specimen: Swab from Foot, Left Updated: 06/29/25 0645 Wound Culture Heavy growth (4+) Staphylococcus aureus, MRSA Comment: Methicillin resistant Staphylococcus aureus, Patient may be an isolation risk. Moderate growth (3+) Morganella morganii ssp morganii Moderate growth (3+) Proteus mirabilis ESBL Comment: Consider infectious disease consult. Susceptibility results may not correlate to clinical outcomes. Gram Stain Few (2+) WBCs seen Few (2+) Gram positive cocci in pairs, chains and clusters Few (2+) Gram negative bacilli Susceptibility Staphylococcus aureus, MRSA MURRAY Clindamycin Susceptible Erythromycin Resistant Oxacillin Resistant Rifampin Susceptible Tetracycline Susceptible Trimethoprim + Sulfamethoxazole Resistant Vancomycin Susceptible Susceptibility Morganella morganii ssp morganii MURRAY Method Not Specified Amoxicillin + Clavulanate Resistant Ampicillin Resistant Ampicillin + Sulbactam Resistant Cefazolin (Non Urine) Resistant Cefepime Susceptible Cefotaxime Susceptible Ceftazidime Susceptible Cefuroxime axetil Resistant Ciprofloxacin Resistant Gentamicin Susceptible Levofloxacin Resistant Piperacillin + Tazobactam Susceptible Tetracycline Susceptible Trimethoprim + Sulfamethoxazole Resistant Susceptibility Proteus mirabilis ESBL MURRAY Ciprofloxacin Resistant Ertapenem Susceptible Levofloxacin Resistant Meropenem Susceptible Tetracycline Resistant Trimethoprim + Sulfamethoxazole Resistant Susceptibility Comments Morganella morganii ssp morganii Cefotaxime susceptibility can be used as a surrogate for ceftriaxone susceptibility Proteus mirabilis ESBL With the exception of urinary-sourced infections, aminoglycosides should not be used as monotherapy. Blood Culture ID, PCR - Blood, Hand, Right [[id number]] (Abnormal) Collected: 06/25/252029 Lab Status: Final result Specimen: Blood from Hand, Right Updated: 06/26/252101 BCID, PCR Enterococcus faecium. Zee/B (vancomycin resistance gene) not detected. Identification byBCID2 PCR. BOTTLE TYPE Anaerobic Bottle Narrative: Infectious disease consultation is highly recommended to rule out distant foci of infection. MRSA Screen, PCR (Inpatient) - Swab, Nares [[id number]] (Abnormal) Collected: 06/26/2545 Lab Status: Final result Specimen: Swab from Nares Updated: 06/26/25 0850 MRSA PCR Positive Narrative: The negative predictive value of this diagnostic test is high and should only be used to consider de-escalating anti-MRSA therapy. A positive result may indicate colonization with MRSA and must be correlated clinically. Gastrointestinal Panel, PCR - Stool, Per Rectum [[id number]] (Abnormal) Collected: 06/26/2545 Lab Status: Final result Specimen: Stool from Per Rectum Updated: 06/26/25 0850 Campylobacter Not Detected Plesiomonas shigelloides Not Detected Salmonella Not Detected Vibrio Not Detected Vibrio cholerae Not Detected Yersinia enterocolitica Not Detected Enteroaggregative E. coli (EAEC) Not Detected Enteropathogenic E. coli (EPEC) Not Detected Enterotoxigenic E. coli (ETEC) lt/st Not Detected Shiga-like toxin-producing E. coli (STEC) stx1/stx2 Not Detected Shigella/Enteroinvasive E. coli (EIEC) Not Detected Cryptosporidium Not Detected Cyclospora cayetanensis Not Detected Entamoeba histolytica Not Detected Giardia lamblia Not Detected Adenovirus F40/41 Not Detected Astrovirus Not Detected Norovirus GI/GII Detected Comment: If a positive Norovirus result is inconsistent with clinical presentation, the positive Norovirus result should be confirmed using another method. Rotavirus A Not Detected Sapovirus (I, II, IV or V) Not Detected Clostridioides difficile Toxin - Stool, Per Rectum [[id number]] (Abnormal) Collected: 06/26/2545 Lab Status: Final result Specimen: Stool from Per Rectum Updated: 06/26/25754 Narrative: The following orders were created for panel order Clostridioides difficile Toxin - Stool, Per Rectum. Procedure Abnormality Status --------- ------ Clostridioides difficile...[[id number]] Abnormal Final result Please view results for these tests on the individual orders. Clostridioides difficile Toxin, PCR - Stool, Per Rectum [[id number]] (Abnormal) Collected: 06/26/2545 Lab Status: Final result Specimen: Stool from Per Rectum Updated: 06/26/25754 Toxigenic C. difficile by PCR Detected Narrative: DNA from a toxigenic strain of C.difficile has been detected. CT Head Without Contrast Result Date: 07/28/2025 CT HEAD WO CONTRAST Date of Exam: 07/28/2025 7:18 PM EST Indication: fall, hit head. Comparison: 07/03/2025 Technique: Axial CT images were obtained of the head without contrast administration. Automated exposure control and iterative construction methods were used. Findings: No intracranial hemorrhage. Gutierrez-white matter differentiation is maintained without evidence of an acute infarction. Multiple foci of decreased attenuation are present within the subcortical, deep cerebral, and periventricular white matter consistent with chronic small vessel/microangiopathic ischemic changes. No extra-axial mass or collection. The ventricles and sulci are prominent commensurate with involutional changes. The posterior fossa appears grossly normal. Sellar and suprasellar structures are normal. Orbital and periorbital soft tissues are normal. The paranasal sinuses, ethmoid air cells, and mastoid aircells are aerated. The bony calvarium is intact. Impression: Impression: No acute intracranial pathology. Electronically Signed: Feliciano Garcia MD 07/28/2025 7:43 PM EST Workstation ID: [id number] Results for orders placed during the hospital [...] PT/OT/ ST Therapy Plans Current medications: Scheduled Meds:acetaminophen, 1,000 mg, Oral, Q8H apixaban, 5 mg, Oral, BID vitamin C, 500 mg, Oral, Daily baclofen, 5 mg, Oral, Q12H carvedilol, 3.125 mg, Oral, BID With Meals clopidogrel, 75 mg, Oral, Daily famotidine, 20 mg, Oral, BID AC finasteride, 5 mg, Oral, Daily folic acid, 1 mg, Oral, Daily gabapentin, 400 mg, Oral, Q8H insulin glargine, 22 Units, Subcutaneous, Nightly insulin lispro, 2-7 Units, Subcutaneous, TID With Meals lamoTRIgine, 100 mg, Oral, Daily lamoTRIgine, 250 mg, Oral, Nightly methenamine, 1 g, Oral, BID With Meals multivitamin with minerals, 1 tablet, Oral, Daily oxyCODONE, 10 mg, Oral, Q4H thiamine, 100 mg, Oral, Daily vancomycin, 125 mg, Oral, Daily Followed by [START ON 08/01/2025] vancomycin, 125 mg, Oral, Weekly ziprasidone, 20 mg, Oral, Nightly Or ziprasidone, 10 mg, Intramuscular, Nightly Continuous Infusions: PRN Meds:. aluminum-magnesium hydroxide-simethicone benzonatate senna-docusate sodium AND polyethylene glycol AND bisacodyl AND bisacodyl dextrose dextrose diphenhydrAMINE-zinc acetate glucagon (human recombinant) influenza vaccine ipratropium-albuterol ondansetron oxyCODONE ziprasidone Assessment & Plan Assessment & Plan Active Hospital Problems Diagnosis POA Wound infection [T14.8XXA, L08.9] Unknown Acute UTI (urinary tract infection) [N39.0] Yes Diarrhea of presumed infectious origin [R19.7] Yes Acute on chronic blood loss anemia [D62] Yes BPH without obstruction/lower urinary tract symptoms [N40.0] Yes GERD without esophagitis [K21.9] Yes Bilateral inguinal hernia [K40.20] Yes Gastroenteritis due to norovirus [A08.11] Yes Cellulitis [L03.90] Yes Type 2 diabetes mellitus, with long-term current use of insulin [E11.9, Z79.4] Not Applicable PAD (peripheral artery disease) [I73.9] Yes Coronary artery disease involving [place] coronary artery of [place] heart without angina pectoris [I25.10] Yes Seizure disorder [G40.909] Yes Primary hypertension [I10] Yes Resolved Hospital Problems No resolved problems to display. Brief Hospital Course to date: Trung Pool is a 70yoM with PMH significant for HTN, HLD, CAD s/p stenting, PAD s/p R BKA and prior LLE revascularization and toe amputations, recurrent LLE cellulitis / wound infections, chronicpain / peripheral neuropathy, insulin- dependent DMII, chronic urinary retention with De [place] Santos catheter, seizure disorder with history of pseudoseizures, obesity and chronic debility. Last admitted to [facility] 06/02-06/11/25 for LLE cellulitis with failure of outpatient treatment. Wound cultures grew Proteus and concern for ESBL per lab and MRSA. He completed 7 days of IV abx prior to DC home. He has declined LLE amputation He returned to [facility] ED on 06/25/25 for evaluation of hematuria, L foot drainage, diarrhea and fatigue. Found to have Norovirus and Enterococcus bacteremia. Hospital course complicated by hospital delirium on 07/14 Hospital-acquired delirium - waxing and waning - neurology follows - currently Ox3. Some intermittent situation confusion/ forgetfulness per sister - geodon nightly/ prn not used LLE Wound Infection w/Cellulitis Severe PAD History of right BKA, LLE revascularization and toe amputation Enterococcus faecium bacteremia - MRI L foot showed edema in the distal first and second metatarsal diaphyses at the resection margins, osteomyelitis not excluded. CT angio left lower extremity revealed moderate focal narrowing at the junction of the SFA and the popliteal artery. 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 - LLE arterial dopplers with abnormal waveforms suggest inflow disease. Moderate 60% stenosis in the left SFA, the left CHIP appears to be occluded filling via collaterals retrograde - Blood cultures positive for Enterococcus faecium - ID/Dr. Andres following - s/p antibiotic therapy - Vascular surgery consulted - follows with Dr. Marcano. He is s/p LLE excisional debridement and wound VAC application on 07/03/25. - PT wound care following, patient self removed his wound vac on 07/22, currently PT wound care not planning to replace it - Continue Plavix / Eliquis - Palliative Care follows, patient now appears agreeable to Hospice care. - increased oxycodone. Hyperkalemia - Potassium of 6.2 07/11 - s/p lokelma - refused further dosing of lokelma. Continue to hold entresto Acute CAUTI and hematuria, POA History of BPH Chronic urinary retention with chronic De Los Santos catheter - Urine culture grew Yeast - H&H stable, resumed Eliquis 07/07 - Urology consulted - recommend continue De Los Santos and finasteride. - Needs OP referral to urology at [place] for long-term management pending GO - continue methenamine Diarrhea Norovirus / C. Diff colonization - GI PCR panel with norovirus, C. difficile toxin is positive but antigen negative suggest colonization - CT imaging suggestive of proctitis - oral vancomycin taper until 08/01 Acute on Chronic anemia, possible blood loss - Continue to monitor H&H, stable, resumed eliqius - Transfuse PRBC if hemoglobin <7 Type 2 diabetes Transient hypoglycemia - Previously well-controlled with A1c 7.6 (08/2024), A1c 7.82 Seizure disorder History of pseudoseizures - Continue lamotrigine - Seizure like activity noted upon awaking from procedure on 07/03. Aborted with propofol and versed. My partner discussed with general neurology over the phone. Recommended PRN ativan for now and outpatient follow up with Dr. Anand as seizures are likely 2/2 anesthesia/procedure. S/p EEG. If seizure like activity recurs while inpatient, recommended loading with 1g of Keppra and placing general neurology consult. - No recurrence of pseudoseizure GERD without Esophagitis - continue pepcid Bilateral Inguinal Hernia, incidental finding on CT - CT imaging revealed bilateral inguinal hernias, larger on the left containing a partial loop of sigmoid colon, without proximal dilatation. - General surgery consult; recommend watchful waiting, poor operative candidate for an elective procedure while asymptomatic, and has signed off GOC: - patient agree able to Hospice care. Service following for LTC placement ?. Patient desires to keep medication the same, however no further aggressive measures/ procedures Expected Discharge Location and Transportation: Expected Discharge Expected Discharge Date: 07/30/2025; Expected Discharge Time: VTE Prophylaxis: Pharmacologic VTE prophylaxis orders are present. AM-PAC 6 Clicks Score (PT): 11 (07/29/252126) CODE STATUS: Code Status and Medical Interventions: No CPR (Do Not Attempt to Resuscitate); Comfort Measures Ordered at: 07/25/25 1024 Code Status (Patient has no pulse and is not breathing): No CPR (Do Not Attempt to Resuscitate) Medical Interventions (Patient has pulse or is breathing): Comfort Measures Level Of Support Discussed With: Patient Health Care Surrogate Carolina Sargent II, DO 07/30/25 * Palmira Palomo APRN - 07/29/2025 9:59 AM EST Images from the original note were not included. [facility] Medicine Services PROGRESS NOTE Patient Name: Trung Pool : [id number] Date of Admission: 06/25/2025 Primary Care Physician: Gustavo Mehta MD Subjective CC: f/u LLE HPI: No changes noted Fell yesterday afternoon, no mental status changes noted. CT head unremarkable Objective Vital Signs: Temp: [96.9 ??F (36.1 ??C)-98.3 ??F (36.8 ??C)] 98.3 ??F (36.8 ??C) Heart Rate: [77-100] 77 Resp: [18-20] 18 BP: (127-156)/(64-88) 127/64 Physical Exam: Constitutional: No acute distress, awake, alert, sitting up on edge of bed, no family at bedside HENT: NCAT, mucous membranes moist Respiratory: Clear to auscultation bilaterally, respiratory effort normal Cardiovascular: RRR, no murmurs, rubs, or gallops Gastrointestinal: Positive bowel sounds, soft, nontender, nondistended Musculoskeletal: R stump intact, LLE wrapped Psychiatric: Appropriate affect, cooperative and joking with me while at bedside Neurologic: pleasantly confused, moves remaining extremities, speech clear Skin: No rashes No change in exam from 07/28/25 Results Reviewed: LAB RESULTS: Lab 07/25/25 0617 07/24/25 0403 07/23/25 0442 SODIUM 140 138 137 POTASSIUM 5.2 6.3* 5.8* CHLORIDE 109* 107 105 CO2 20.4* 22.2 21.8* ANION GAP 10.6 8.8 10.2 BUN 27.2* 29.3* 20.3 CREATININE 1.02 1.35* 0.94 EGFR 78.6 56.1* 86.7 GLUCOSE 89 115* 104* CALCIUM 9.1 8.8 9.3 Brief Urine Lab Results (Last result in the past 365 days) Color Clarity Blood Leuk Est Nitrite Protein CREAT Urine HCG 07/14/2552 Yellow Clear Trace Moderate (2+) Negative 30 mg/dL (1+) Microbiology Results Abnormal Procedure Component Value - Date/Time Urine Culture - Urine, Indwelling Urethral Catheter [[id number]] (Abnormal) Collected: 07/14/2552 Lab Status: Final result Specimen: Urine from Indwelling Urethral Catheter Updated: 07/15/25 1329 Urine Culture Yeast isolated Narrative: No further workup for yeast Colonization of the urinary tract without infection is common. Treatment is discouraged unless the patient is symptomatic, , or undergoing an invasive urologic procedure. Urine Culture - Urine, Indwelling Urethral Catheter [[id number]] (Abnormal) (Susceptibility) Collected: 06/25/252000 Lab Status: Final result Specimen: Urine from Indwelling Urethral Catheter Updated: 06/30/25 1001 Urine Culture >100,000 CFU/mL Proteus mirabilis Narrative: Colonization of the urinary tract without infection is common. Treatment is discouraged unless the patient is symptomatic, , or undergoing an invasive urologic procedure. Susceptibility Proteus mirabilis MURRAY Amoxicillin + Clavulanate Susceptible Ampicillin Resistant Ampicillin + Sulbactam Intermediate Cefazolin (Urine) Resistant Cefepime Resistant Ceftazidime Susceptible Ceftriaxone Resistant Cefuroxime axetil Resistant Ciprofloxacin Resistant Gentamicin Susceptible Levofloxacin Resistant Nitrofurantoin Resistant Piperacillin + Tazobactam Susceptible Trimethoprim + Sulfamethoxazole Resistant Blood Culture - Blood, Hand, Right [[id number]] (Abnormal) (Susceptibility) Collected: 06/25/252029 Lab Status: Edited Result - FINAL Specimen: Blood from Hand, Right Updated: 06/29/25 0713 Blood Culture Enterococcus faecium Comment: Infectious disease consultation is highly recommended. Isolated from Anaerobic Bottle Gram Stain Anaerobic Bottle Gram positive cocci in chains Narrative: Less than seven (7) mL's of blood was collected. Insufficient quantity may yield false negative results. requested linezolid & daptomycin 06/28/25 Susceptibility Enterococcus faecium MURRAY Method Not Specified Ampicillin Susceptible Daptomycin Susceptible dose dependent Gentamicin High Level Synergy Susceptible Linezolid Susceptible (C) [1] Vancomycin Susceptible [1] Appended report. These results have been appended to a previously final verified report. Wound Culture - Swab, Foot, Left [[id number]] (Abnormal) (Susceptibility) Collected: 06/25/251817 Lab Status: Final result Specimen: Swab from Foot, Left Updated: 06/29/25 0645 Wound Culture Heavy growth (4+) Staphylococcus aureus, MRSA Comment: Methicillin resistant Staphylococcus aureus, Patient may be an isolation risk. Moderate growth (3+) Morganella morganii ssp morganii Moderate growth (3+) Proteus mirabilis ESBL Comment: Consider infectious disease consult. Susceptibility results may not correlate to clinical outcomes. Gram Stain Few (2+) WBCs seen Few (2+) Gram positive cocci in pairs, chains and clusters Few (2+) Gram negative bacilli Susceptibility Staphylococcus aureus, MRSA MURRAY Clindamycin Susceptible Erythromycin Resistant Oxacillin Resistant Rifampin Susceptible Tetracycline Susceptible Trimethoprim + Sulfamethoxazole Resistant Vancomycin Susceptible Susceptibility Morganella morganii ssp morganii MURRAY Method Not Specified Amoxicillin + Clavulanate Resistant Ampicillin Resistant Ampicillin + Sulbactam Resistant Cefazolin (Non Urine) Resistant Cefepime Susceptible Cefotaxime Susceptible Ceftazidime Susceptible Cefuroxime axetil Resistant Ciprofloxacin Resistant Gentamicin Susceptible Levofloxacin Resistant Piperacillin + Tazobactam Susceptible Tetracycline Susceptible Trimethoprim + Sulfamethoxazole Resistant Susceptibility Proteus mirabilis ESBL MURRAY Ciprofloxacin Resistant Ertapenem Susceptible Levofloxacin Resistant Meropenem Susceptible Tetracycline Resistant Trimethoprim + Sulfamethoxazole Resistant Susceptibility Comments Morganella morganii ssp morganii Cefotaxime susceptibility can be used as a surrogate for ceftriaxone susceptibility Proteus mirabilis ESBL With the exception of urinary-sourced infections, aminoglycosides should not be used as monotherapy. Blood Culture ID, PCR - Blood, Hand, Right [[id number]] (Abnormal) Collected: 06/25/252029 Lab Status: Final result Specimen: Blood from Hand, Right Updated: 06/26/252101 BCID, PCR Enterococcus faecium. Zee/B (vancomycin resistance gene) not detected. Identification byBCID2 PCR. BOTTLE TYPE Anaerobic Bottle Narrative: Infectious disease consultation is highly recommended to rule out distant foci of infection. MRSA Screen, PCR (Inpatient) - Swab, Nares [[id number]] (Abnormal) Collected: 06/26/2545 Lab Status: Final result Specimen: Swab from Nares Updated: 06/26/25 0850 MRSA PCR Positive Narrative: The negative predictive value of this diagnostic test is high and should only be used to consider de-escalating anti-MRSA therapy. A positive result may indicate colonization with MRSA and must be correlated clinically. Gastrointestinal Panel, PCR - Stool, Per Rectum [[id number]] (Abnormal) Collected: 06/26/2545 Lab Status: Final result Specimen: Stool from Per Rectum Updated: 06/26/25 0850 Campylobacter Not Detected Plesiomonas shigelloides Not Detected Salmonella Not Detected Vibrio Not Detected Vibrio cholerae Not Detected Yersinia enterocolitica Not Detected Enteroaggregative E. coli (EAEC) Not Detected Enteropathogenic E. coli (EPEC) Not Detected Enterotoxigenic E. coli (ETEC) lt/st Not Detected Shiga-like toxin-producing E. coli (STEC) stx1/stx2 Not Detected Shigella/Enteroinvasive E. coli (EIEC) Not Detected Cryptosporidium Not Detected Cyclospora cayetanensis Not Detected Entamoeba histolytica Not Detected Giardia lamblia Not Detected Adenovirus F40/41 Not Detected Astrovirus Not Detected Norovirus GI/GII Detected Comment: If a positive Norovirus result is inconsistent with clinical presentation, the positive Norovirus result should be confirmed using another method. Rotavirus A Not Detected Sapovirus (I, II, IV or V) Not Detected Clostridioides difficile Toxin - Stool, Per Rectum [[id number]] (Abnormal) Collected: 06/26/2545 Lab Status: Final result Specimen: Stool from Per Rectum Updated: 06/26/25 1792 Narrative: The following orders were created for panel order Clostridioides difficile Toxin - Stool, Per Rectum. Procedure Abnormality Status --------- ------ Clostridioides difficile...[[id number]] Abnormal Final result Please view results for these tests on the individual orders. Clostridioides difficile Toxin, PCR - Stool, Per Rectum [[id number]] (Abnormal) Collected: 06/26/25 0046 Lab Status: Final result Specimen: Stool from Per Rectum Updated: 06/26/25 0755 Toxigenic C. difficile by PCR Detected Narrative: DNA from a toxigenic strain of C.difficile has been detected. CT Head Without Contrast Result Date: 07/28/2025 CT HEAD WO CONTRAST Date of Exam: 07/28/2025 7:18 PM EST Indication: fall, hit head. Comparison: 07/03/2025 Technique: Axial CT images were obtained of the head without contrast administration. Automated exposure control and iterative construction methods were used. Findings: No intracranial hemorrhage. Gutierrez-white matter differentiation is maintained without evidence of an acute infarction. Multiple foci of decreased attenuation are present within the subcortical, deep cerebral, and periventricular white matter consistent with chronic small vessel/microangiopathic ischemic changes. No extra-axial mass or collection. The ventricles and sulci are prominent commensurate with involutional changes. The posterior fossa appears grossly normal. Sellar and suprasellar structures are normal. Orbital and periorbital soft tissues are normal. The paranasal sinuses, ethmoid air cells, and mastoid aircells are aerated. The bony calvarium is intact. Impression: Impression: No acute intracranial pathology. Electronically Signed: Feliciano Garcia MD 07/28/2025 7:43 PM EST Workstation ID: [id number] Results for orders placed during the hospital encounter of 08/31/24 Adult Transthoracic Echo Complete W/ Cont if Necessary Per Protocol 09/12/2024 4:10 PM Interpretation Summary Left ventricular systolic function is normal. Calculated left ventricular EF = 52.5% There is a trivial pericardial effusion. The aortic valve exhibits sclerosis. Mitral annular calcification is present. Current medications: Scheduled Meds:acetaminophen, 1,000 mg, Oral, Q8H apixaban, 5 mg, Oral, BID vitamin C, 500 mg, Oral, Daily baclofen, 5 mg, Oral, Q12H carvedilol, 3.125 mg, Oral, BID With Meals clopidogrel, 75 mg, Oral, Daily famotidine, 20 mg, Oral, BID AC finasteride, 5 mg, Oral, Daily folic acid, 1 mg, Oral, Daily gabapentin, 400 mg, Oral, Q8H insulin glargine, 22 Units, Subcutaneous, Nightly insulin lispro, 2-7 Units, Subcutaneous, TID With Meals lamoTRIgine, 100 mg, Oral, Daily lamoTRIgine, 250 mg, Oral, Nightly methenamine, 1 g, Oral, BID With Meals multivitamin with minerals, 1 tablet, Oral, Daily oxyCODONE, 10 mg, Oral, Q4H thiamine, 100 mg, Oral, Daily vancomycin, 125 mg, Oral, Daily Followed by [START ON 08/01/2025] vancomycin, 125 mg, Oral, Weekly ziprasidone, 20 mg, Oral, Nightly Or ziprasidone, 10 mg, Intramuscular, Nightly Continuous Infusions: PRN Meds:. aluminum-magnesium hydroxide-simethicone benzonatate senna-docusate sodium AND polyethylene glycol AND bisacodyl AND bisacodyl dextrose dextrose diphenhydrAMINE-zinc acetate glucagon (human recombinant) influenza vaccine ipratropium-albuterol ondansetron oxyCODONE ziprasidone Assessment & Plan Active Hospital Problems Diagnosis POA Wound infection [T14.8XXA, L08.9] Unknown Acute UTI (urinary tract infection) [N39.0] Yes Diarrhea of presumed infectious origin [R19.7] Yes Acute on chronic blood loss anemia [D62] Yes BPH without obstruction/lower urinary tract symptoms [N40.0] Yes GERD without esophagitis [K21.9] Yes Bilateral inguinal hernia [K40.20] Yes Gastroenteritis due to norovirus [A08.11] Yes Cellulitis [L03.90] Yes Type 2 diabetes mellitus, with long-term current use of insulin [E11.9, Z79.4] Not Applicable PAD (peripheral artery disease) [I73.9] Yes Coronary artery disease involving [place] coronary artery of [place] heart without angina pectoris [I25.10] Yes Seizure disorder [G40.909] Yes Primary hypertension [I10] Yes Resolved Hospital Problems No resolved problems to display. Brief Hospital Course to date: Trung Pool is a 70yoM with PMH significant for HTN, HLD, CAD s/p stenting, PAD s/p R BKA and prior LLE revascularization and toe amputations, recurrent LLE cellulitis / wound infections, chronicpain / peripheral neuropathy, insulin- dependent DMII, chronic urinary retention with De Los Santos catheter, seizure disorder with history of pseudoseizures, obesity and chronic debility. Last admitted to [facility] 06/02-06/11/25 for LLE cellulitis with failure of outpatient treatment. Wound cultures grew Proteus and concern for ESBL per lab and MRSA. He completed 7 days of IV abx prior to DC home. He has declined LLE amputation He returned to [facility] ED on 06/25/25 for evaluation of hematuria, L foot drainage, diarrhea and fatigue. Found to have Norovirus and Enterococcus bacteremia. Hospital course complicated by hospital delirium on 07/14 This patient's problems and plans were partially entered by my partner and updated as appropriate by me 07/29/25. Hospital-acquired delirium - waxing and waning - neurology follows - currently Ox3. Some intermittent situation confusion/ forgetfulness per sister - geodon nightly/ prn not used LLE Wound Infection w/Cellulitis Severe PAD History of right BKA, LLE revascularization and toe amputation Enterococcus faecium bacteremia - MRI L foot showed edema in the distal first and second metatarsal diaphyses at the resection margins, osteomyelitis not excluded. CT angio left lower extremity revealed moderate focal narrowing at the junction of the SFA and the popliteal artery. 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 - LLE arterial dopplers with abnormal waveforms suggest inflow disease. Moderate 60% stenosis in the left SFA, the left CHIP appears to be occluded filling via collaterals retrograde - Blood cultures positive for Enterococcus faecium - ID/Dr. Andres following - s/p antibiotic therapy - Vascular surgery consulted - follows with Dr. Marcano. He is s/p LLE excisional debridement and wound VAC application on 07/03/25. - PT wound care following, patient self removed his wound vac on 07/22, currently PT wound care not planning to replace it - Continue Plavix / Eliquis - Palliative Care follows, patient now appears agreeable to Hospice care. - increase scheduled oxycodone to q 4hr, continue PRN Hyperkalemia - Potassium of 6.2 07/11 - s/p lokelma - refused further dosing of lokelma. Continue to hold entresto Acute CAUTI and hematuria, POA History of BPH Chronic urinary retention with chronic De Los Santos catheter - Urine culture grew Yeast - H&H stable, resumed Eliquis 07/07 - Urology consulted - recommend continue De Los Santos and finasteride. - Needs OP referral to urology at [place] for long-term management pending GOC - continue methenamine Diarrhea Norovirus / C. Diff colonization - GI PCR panel with norovirus, C. difficile toxin is positive but antigen negative suggest colonization - CT imaging suggestive of proctitis - oral vancomycin taper until 08/01 Acute on Chronic anemia, possible blood loss - Continue to monitor H&H, stable, resumed eliqius - Transfuse PRBC if hemoglobin <7 Type 2 diabetes Transient hypoglycemia - Previously well-controlled with A1c 7.6 (08/2024), A1c 7.82 - decrease lantus nightly Latest Reference Range & Units 07/28/25 19:49 07/29/25 07:30 07/29/25 11:30 Glucose 70 - 130 mg/dL 139 (H) 168 (H) 148 (H) Seizure disorder History of pseudoseizures - Continue lamotrigine - Seizure like activity noted upon awaking from procedure on 07/03. Aborted with propofol and versed. My partner discussed with general neurology over the phone. Recommended PRN ativan for now and outpatient follow up with Dr. Anand as seizures are likely 2/2 anesthesia/procedure. S/p EEG. If seizure like activity recurs while inpatient, recommended loading with 1g of Keppra and placing general neurology consult. - No recurrence of pseudoseizure GERD without Esophagitis - continue pepcid Bilateral Inguinal Hernia, incidental finding on CT - CT imaging revealed bilateral inguinal hernias, larger on the left containing a partial loop of sigmoid colon, without proximal dilatation. - General surgery consult; recommend watchful waiting, poor operative candidate for an elective procedure while asymptomatic, and has signed off GOC: - patient agree able to Hospice care. Service following for LTC placement ?. Patient desires to keep medication the same, however no further aggressive measures/ procedures Expected Discharge Location and Transportation: SNF, TBD. Expected Discharge Expected Discharge Date: 07/30/2025; Expected Discharge Time: VTE Prophylaxis: Pharmacologic VTE prophylaxis orders are present. AM-PAC 6 Clicks Score (PT): 11 (07/29/25 0943) CODE STATUS: Code Status and Medical Interventions: No CPR (Do Not Attempt to Resuscitate); Comfort Measures Ordered at: 07/25/25 1024 Code Status (Patient has no pulse and is not breathing): No CPR (Do Not Attempt to Resuscitate) Medical Interventions (Patient has pulse or is breathing): Comfort Measures Level Of Support Discussed With: Patient Health Care Surrogate Palmira Palomo APRN 07/29/25 * Palmira Palomo APRN - 07/28/2025 11:11 AM EST Images from the original note were not included. [facility] Medicine Services PROGRESS NOTE Patient Name: Trung Pool : 1955 Date of Admission: 06/25/2025 Primary Care Physician: Gustavo Mehta MD Subjective CC: f/u LLE HPI: No new issues overnight States he is antsy like I am getting ready to get out of [facility] Objective Vital Signs: Temp: [97 ??F (36.1 ??C)-97.6 ??F (36.4 ??C)] 97.6 ??F (36.4 ??C) Heart Rate: [96] 96 Resp: [18] 18 BP: (110-131)/(83-87) 131/83 Physical Exam: Constitutional: No acute distress, awake, alert, sitting up on edge of bed, no family at bedside HENT: NCAT, mucous membranes moist Respiratory: Clear to auscultation bilaterally, respiratory effort normal Cardiovascular: RRR, no murmurs, rubs, or gallops Gastrointestinal: Positive bowel sounds, soft, nontender, nondistended Musculoskeletal: R stump intact, LLE wrapped Psychiatric: Appropriate affect, cooperative and joking with me while at bedside Neurologic: Oriented x 3, moves remaining extremities, speech clear Skin: No rashes Results Reviewed: LAB RESULTS: Lab 07/25/25 0617 07/24/25 0403 07/23/25 0442 SODIUM 140 138 137 POTASSIUM 5.2 6.3* 5.8* CHLORIDE 109* 107 105 CO2 20.4* 22.2 21.8* ANION GAP 10.6 8.8 10.2 BUN 27.2* 29.3* 20.3 CREATININE 1.02 1.35* 0.94 EGFR 78.6 56.1* 86.7 GLUCOSE 89 115* 104* CALCIUM 9.1 8.8 9.3 Brief Urine Lab Results (Last result in the past 365 days) Color Clarity Blood Leuk Est Nitrite Protein CREAT Urine HCG 07/14/2552 Yellow Clear Trace Moderate (2+) Negative 30 mg/dL (1+) Microbiology Results Abnormal Procedure Component Value - Date/Time Urine Culture - Urine, Indwelling Urethral Catheter [[id number]] (Abnormal) Collected: 07/14/2552 Lab Status: Final result Specimen: Urine from Indwelling Urethral Catheter Updated: 07/15/25 1329 Urine Culture Yeast isolated Narrative: No further workup for yeast Colonization of the urinary tract without infection is common. Treatment is discouraged unless the patient is symptomatic, , or undergoing an invasive urologic procedure. Urine Culture - Urine, Indwelling Urethral Catheter [[id number]] (Abnormal) (Susceptibility) Collected: 06/25/252000 Lab Status: Final result Specimen: Urine from Indwelling Urethral Catheter Updated: 06/30/25 1001 Urine Culture >100,000 CFU/mL Proteus mirabilis Narrative: Colonization of the urinary tract without infection is common. Treatment is discouraged unless the patient is symptomatic, , or undergoing an invasive urologic procedure. Susceptibility Proteus mirabilis MURRAY Amoxicillin + Clavulanate Susceptible Ampicillin Resistant Ampicillin + Sulbactam Intermediate Cefazolin (Urine) Resistant Cefepime Resistant Ceftazidime Susceptible Ceftriaxone Resistant Cefuroxime axetil Resistant Ciprofloxacin Resistant Gentamicin Susceptible Levofloxacin Resistant Nitrofurantoin Resistant Piperacillin + Tazobactam Susceptible Trimethoprim + Sulfamethoxazole Resistant Blood Culture - Blood, Hand, Right [[id number]] (Abnormal) (Susceptibility) Collected: 06/25/252029 Lab Status: Edited Result - FINAL Specimen: Blood from Hand, Right Updated: 06/29/25 0713 Blood Culture Enterococcus faecium Comment: Infectious disease consultation is highly recommended. Isolated from Anaerobic Bottle Gram Stain Anaerobic Bottle Gram positive cocci in chains Narrative: Less than seven (7) mL's of blood was collected. Insufficient quantity may yield false negative results. requested linezolid & daptomycin 06/28/25 Susceptibility Enterococcus faecium MURRAY Method Not Specified Ampicillin Susceptible Daptomycin Susceptible dose dependent Gentamicin High Level Synergy Susceptible Linezolid Susceptible (C) [1] Vancomycin Susceptible [1] Appended report. These results have been appended to a previously final verified report. Wound Culture - Swab, Foot, Left [[id number]] (Abnormal) (Susceptibility) Collected: 06/25/25 1818 Lab Status: Final result Specimen: Swab from Foot, Left Updated: 06/29/25 0645 Wound Culture Heavy growth (4+) Staphylococcus aureus, MRSA Comment: Methicillin resistant Staphylococcus aureus, Patient may be an isolation risk. Moderate growth (3+) Morganella morganii ssp morganii Moderate growth (3+) Proteus mirabilis ESBL Comment: Consider infectious disease consult. Susceptibility results may not correlate to clinical outcomes. Gram Stain Few (2+) WBCs seen Few (2+) Gram positive cocci in pairs, chains and clusters Few (2+) Gram negative bacilli Susceptibility Staphylococcus aureus, MRSA MURRAY Clindamycin Susceptible Erythromycin Resistant Oxacillin Resistant Rifampin Susceptible Tetracycline Susceptible Trimethoprim + Sulfamethoxazole Resistant Vancomycin Susceptible Susceptibility Morganella morganii ssp morganii MURRAY Method Not Specified Amoxicillin + Clavulanate Resistant Ampicillin Resistant Ampicillin + Sulbactam Resistant Cefazolin (Non Urine) Resistant Cefepime Susceptible Cefotaxime Susceptible Ceftazidime Susceptible Cefuroxime axetil Resistant Ciprofloxacin Resistant Gentamicin Susceptible Levofloxacin Resistant Piperacillin + Tazobactam Susceptible Tetracycline Susceptible Trimethoprim + Sulfamethoxazole Resistant Susceptibility Proteus mirabilis ESBL MURRAY Ciprofloxacin Resistant Ertapenem Susceptible Levofloxacin Resistant Meropenem Susceptible Tetracycline Resistant Trimethoprim + Sulfamethoxazole Resistant Susceptibility Comments Morganella morganii ssp morganii Cefotaxime susceptibility can be used as a surrogate for ceftriaxone susceptibility Proteus mirabilis ESBL With the exception of urinary-sourced infections, aminoglycosides should not be used as monotherapy. Blood Culture ID, PCR - Blood, Hand, Right [[id number]] (Abnormal) Collected: 06/25/25 2030 Lab Status: Final result Specimen: Blood from Hand, Right Updated: 06/26/252101 BCID, PCR Enterococcus faecium. Zee/B (vancomycin resistance gene) not detected. Identification byBCID2 PCR. BOTTLE TYPE Anaerobic Bottle Narrative: Infectious disease consultation is highly recommended to rule out distant foci of infection. MRSA Screen, PCR (Inpatient) - Swab, Nares [[id number]] (Abnormal) Collected: 06/26/25 0046 Lab Status: Final result Specimen: Swab from Nares Updated: 06/26/25 0850 MRSA PCR Positive Narrative: The negative predictive value of this diagnostic test is high and should only be used to consider de-escalating anti-MRSA therapy. A positive result may indicate colonization with MRSA and must be correlated clinically. Gastrointestinal Panel, PCR - Stool, Per Rectum [[id number]] (Abnormal) Collected: 06/26/2545 Lab Status: Final result Specimen: Stool from Per Rectum Updated: 06/26/25 0850 Campylobacter Not Detected Plesiomonas shigelloides Not Detected Salmonella Not Detected Vibrio Not Detected Vibrio cholerae Not Detected Yersinia enterocolitica Not Detected Enteroaggregative E. coli (EAEC) Not Detected Enteropathogenic E. coli (EPEC) Not Detected Enterotoxigenic E. coli (ETEC) lt/st Not Detected Shiga-like toxin-producing E. coli (STEC) stx1/stx2 Not Detected Shigella/Enteroinvasive E. coli (EIEC) Not Detected Cryptosporidium Not Detected Cyclospora cayetanensis Not Detected Entamoeba histolytica Not Detected Giardia lamblia Not Detected Adenovirus F40/41 Not Detected Astrovirus Not Detected Norovirus GI/GII Detected Comment: If a positive Norovirus result is inconsistent with clinical presentation, the positive Norovirus result should be confirmed using another method. Rotavirus A Not Detected Sapovirus (I, II, IV or V) Not Detected Clostridioides difficile Toxin - Stool, Per Rectum [[id number]] (Abnormal) Collected: 06/26/2545 Lab Status: Final result Specimen: Stool from Per Rectum Updated: 06/26/25754 Narrative: The following orders were created for panel order Clostridioides difficile Toxin - Stool, Per Rectum. Procedure Abnormality Status --------- ------ Clostridioides difficile...[[id number]] Abnormal Final result Please view results for these tests on the individual orders. Clostridioides difficile Toxin, PCR - Stool, Per Rectum [[id number]] (Abnormal) Collected: 06/26/2545 Lab Status: Final result Specimen: Stool from Per Rectum Updated: 06/26/25754 Toxigenic C. difficile by PCR Detected Narrative: DNA from a toxigenic strain of C.difficile has been detected. No radiology results from the last 24 hrs Results for orders placed during the hospital encounter of 12/19/24 Adult Transthoracic Echo Complete W/ Cont if Necessary Per Protocol 09/12/2024 4:10 PM Interpretation Summary Left ventricular systolic function is normal. Calculated left ventricular EF = 52.5% There is a trivial pericardial effusion. The aortic valve exhibits sclerosis. Mitral annular calcification is present. Current medications: Scheduled Meds:acetaminophen, 1,000 mg, Oral, Q8H apixaban, 5 mg, Oral, BID vitamin C, 500 mg, Oral, Daily baclofen, 5 mg, Oral, Q12H carvedilol, 3.125 mg, Oral, BID With Meals clopidogrel, 75 mg, Oral, Daily famotidine, 20 mg, Oral, BID AC finasteride, 5 mg, Oral, Daily folic acid, 1 mg, Oral, Daily gabapentin, 400 mg, Oral, Q8H insulin glargine, 22 Units, Subcutaneous, Nightly insulin lispro, 2-7 Units, Subcutaneous, TID With Meals lamoTRIgine, 100 mg, Oral, Daily lamoTRIgine, 250 mg, Oral, Nightly methenamine, 1 g, Oral, BID With Meals multivitamin with minerals, 1 tablet, Oral, Daily oxyCODONE, 10 mg, Oral, Q4H thiamine, 100 mg, Oral, Daily vancomycin, 125 mg, Oral, Daily Followed by [START ON 08/01/2025] vancomycin, 125 mg, Oral, Weekly ziprasidone, 20 mg, Oral, Nightly Or ziprasidone, 10 mg, Intramuscular, Nightly Continuous Infusions: PRN Meds:. aluminum-magnesium hydroxide-simethicone benzonatate senna-docusate sodium AND polyethylene glycol AND bisacodyl AND bisacodyl dextrose dextrose diphenhydrAMINE-zinc acetate glucagon (human recombinant) influenza vaccine ipratropium-albuterol ondansetron oxyCODONE ziprasidone Assessment & Plan Active Hospital Problems Diagnosis POA Wound infection [T14.8XXA, L08.9] Unknown Acute UTI (urinary tract infection) [N39.0] Yes Diarrhea of presumed infectious origin [R19.7] Yes Acute on chronic blood loss anemia [D62] Yes BPH without obstruction/lower urinary tract symptoms [N40.0] Yes GERD without esophagitis [K21.9] Yes Bilateral inguinal hernia [K40.20] Yes Gastroenteritis due to norovirus [A08.11] Yes Cellulitis [L03.90] Yes Type 2 diabetes mellitus, with long-term current use of insulin [E11.9, Z79.4] Not Applicable PAD (peripheral artery disease) [I73.9] Yes Coronary artery disease involving [place] coronary artery of [place] heart without angina pectoris [I25.10] Yes Seizure disorder [G40.909] Yes Primary hypertension [I10] Yes Resolved Hospital Problems No resolved problems to display. Brief Hospital Course to date: Trung Pool is a 70yoM with PMH significant for HTN, HLD, CAD s/p stenting, PAD s/p R BKA and prior LLE revascularization and toe amputations, recurrent LLE cellulitis / wound infections, chronicpain / peripheral neuropathy, insulin- dependent DMII, chronic urinary retention with De [place] Santos catheter, seizure disorder with history of pseudoseizures, obesity and chronic debility. Last admitted to [facility] 06/02-06/11/25 for LLE cellulitis with failure of outpatient treatment. Wound cultures grew Proteus and concern for ESBL per lab and MRSA. He completed 7 days of IV abx prior to DC home. He has declined LLE amputation He returned to [facility] ED on 06/25/25 for evaluation of hematuria, L foot drainage, diarrhea and fatigue. Found to have Norovirus and Enterococcus bacteremia. Hospital course complicated by hospital delirium on 07/14 This patient's problems and plans were partially entered by my partner and updated as appropriate by me 07/28/25. Hospital-acquired delirium - waxing and waning - neurology follows - currently Ox3. Some intermittent situation confusion/ forgetfulness per sister - miguelito nightly/ prn not used LLE Wound Infection w/Cellulitis Severe PAD History of right BKA, LLE revascularization and toe amputation Enterococcus faecium bacteremia - MRI L foot showed edema in the distal first and second metatarsal diaphyses at the resection margins, osteomyelitis not excluded. CT angio left lower extremity revealed moderate focal narrowing at the junction of the SFA and the popliteal artery. 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 - LLE arterial dopplers with abnormal waveforms suggest inflow disease. Moderate 60% stenosis in the left SFA, the left CHIP appears to be occluded filling via collaterals retrograde - Blood cultures positive for Enterococcus faecium - ID/Dr. Andres following - s/p antibiotic therapy - Vascular surgery consulted - follows with Dr. Marcano. He is s/p LLE excisional debridement and wound VAC application on 07/03/25. - PT wound care following, patient self removed his wound vac on 07/22, currently PT wound care not planning to replace it - Continue Plavix / Eliquis - Palliative Care follows, patient now appears agreeable to Hospice care. - increase scheduled oxycodone to q 4hr, continue PRN Hyperkalemia - Potassium of 6.2 07/11 - s/p lokelma - refused further dosing of lokelma. Continue to hold entresto Acute CAUTI and hematuria, POA History of BPH Chronic urinary retention with chronic De [place] Santos catheter - Urine culture grew Yeast - H&H stable, resumed Eliquis 07/07 - Urology consulted - recommend continue De Los Santos and finasteride. - Needs OP referral to urology at [place] for long-term management pending GOC - continue methenamine Diarrhea Norovirus / C. Diff colonization - GI PCR panel with norovirus, C. difficile toxin is positive but antigen negative suggest colonization - CT imaging suggestive of proctitis - oral vancomycin taper until 08/01 Acute on Chronic anemia, possible blood loss - Continue to monitor H&H, stable, resumed eliqius - Transfuse PRBC if hemoglobin <7 Type 2 diabetes Transient hypoglycemia - Previously well-controlled with A1c 7.6 (08/2024), A1c 7.82 - decrease lantus nightly Latest Reference Range & Units 07/27/25 16:43 07/27/25 20:51 07/28/25 07:24 07/28/25 11:49 Glucose 70 - 130 mg/dL 190 (H) 173 (H) 120 138 (H) Seizure disorder History of pseudoseizures - Continue lamotrigine - Seizure like activity noted upon awaking from procedure on 07/03. Aborted with propofol and versed. My partner discussed with general neurology over the phone. Recommended PRN ativan for now and outpatient follow up with Dr. Anand as seizures are likely 2/2 anesthesia/procedure. S/p EEG. If seizure like activity recurs while inpatient, recommended loading with 1g of Keppra and placing general neurology consult. - No recurrence of pseudoseizure GERD without Esophagitis - continue pepcid Bilateral Inguinal Hernia, incidental finding on CT - CT imaging revealed bilateral inguinal hernias, larger on the left containing a partial loop of sigmoid colon, without proximal dilatation. - General surgery consult; recommend watchful waiting, poor operative candidate for an elective procedure while asymptomatic, and has signed off GOC: - patient agree able to Hospice care. Service following for LTC placement ?. Patient desires to keep medication the same, however no further aggressive measures/ procedures Expected Discharge Location and Transportation: SNF, D. Expected Discharge Expected Discharge Date: 07/30/2025; Expected Discharge Time: VTE Prophylaxis: Pharmacologic VTE prophylaxis orders are present. AM-PAC 6 Clicks Score (PT): 11 (07/27/251999) CODE STATUS: Code Status and Medical Interventions: No CPR (Do Not Attempt to Resuscitate); Comfort Measures Ordered at: 07/25/25 1024 Code Status (Patient has no pulse and is not breathing): No CPR (Do Not Attempt to Resuscitate) Medical Interventions (Patient has pulse or is breathing): Comfort Measures Level Of Support Discussed With: Patient Health Care Surrogate Palmira Palomo APRN 07/28/25 * Talisha Resendez APRN - 07/27/2025 1:55 PM EST Palliative Care Daily Progress Note C/C: Patient sleeping. S: Medical record reviewed. Follow-up visit for GOC and symptom management. Events noted. Patient sleeping. RN reports comfortable and medications managing symptoms. ROS: ROS limited by sleeping. O: Code Status: Code Status and Medical Interventions: No CPR (Do Not Attempt to Resuscitate); Comfort Measures Ordered at: 07/25/25 1024 Code Status (Patient has no pulse and is not breathing): No CPR (Do Not Attempt to Resuscitate) Medical Interventions (Patient has pulse or is breathing): Comfort Measures Level Of Support Discussed With: Patient Health Care Surrogate Advanced Directives: Advance Directive Status: Patient has advance directive, copy in chart Goals of Care: Ongoing. Palliative Performance Scale Score: 30% BP 111/64 (BP Location: Left arm, Patient Position: Lying) Pulse 76 Temp 97.8 ??F (36.6 ??C) (Oral) Resp 18 Ht 182.9 cm (72 ) Wt 116 kg (256 lb) SpO2 96% BMI 34.72 kg/m?? Intake/Output Summary (Last 24 hours) at 07/27/2025 1421 Last data filed at 07/27/2025 0701 Gross per 24 hour Intake 250 ml Output 1225 ml Net -975 ml PE: General Appearance: Patient lying in bed, sleeping, chronically ill appearing, cooperative, NAD HEENT: NC/AT, MMM, face relaxed Neck: supple, trachea midline, no JVD Lungs: CTA bilat, diminished in bases; respirations regular, even and unlabored; RR 16-18 on exam, on RA Heart: RRR, normal S1 and S2, no M/R/G Abdomen: Normal bowel sounds, soft, nontender, nondistended G/U: Deferred MSK/Extremities: RBKA, LLE with all toes amputated, Pulses: Pulses palpable and equal bilaterally Skin: Warm, dry Neurologic: sleeping Psych: sleeping Meds: Reviewed and changes noted Labs: Results from last 7 days Lab Units 07/25/25 0617 SODIUM mmol/L 140 POTASSIUM mmol/L 5.2 CHLORIDE mmol/L 109* CO2 mmol/L 20.4* BUN mg/dL 27.2* CREATININE mg/dL 1.02 GLUCOSE mg/dL 89 CALCIUM mg/dL 9.1 Results from last 7 days Lab Units 07/25/25 0617 SODIUM mmol/L 140 POTASSIUM mmol/L 5.2 CHLORIDE mmol/L 109* CO2 mmol/L 20.4* BUN mg/dL 27.2* CREATININE mg/dL 1.02 CALCIUM mg/dL 9.1 GLUCOSE mg/dL 89 Imaging Results (Last 72 Hours) No results found for the last 72 hours. Diagnostics: Reviewed A: Wound infection Primary hypertension Seizure disorder Coronary artery disease involving [place] coronary artery of [place] heart without angina pectoris PAD (peripheral artery disease) Type 2 diabetes mellitus, with long-term current use of insulin Cellulitis Acute UTI (urinary tract infection) Diarrhea of presumed infectious origin Acute on chronic blood loss anemia BPH without obstruction/lower urinary tract symptoms GERD without esophagitis Bilateral inguinal hernia Gastroenteritis due to norovirus 70 y.o. male with seizure disorder, CAD, PAD, T2DM, UTI, anemia, GERD, cellulitis, pain. S/S: Pain -LLE cellulitis, MSK back pain - Gabapentin 400mg PO q 8 hours -Baclofen 5mg PO q 12 hours - Oxycodone 10mg PO q 4 hours scheduled and q 4 hours prn moderate pain -Tylenol 1000mg PO q 8 hours scheduled 2. Debility -power chair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 infarction Peripheral neuropathy Pneumonia Spinal stenosis Wears dentures FULL Wears glasses Past Surgical History: Procedure Laterality Date ABOVE KNEE AMPUTATION Right AMPUTATION DIGIT Left 01/28/2024 Procedure: SECOND AND THIRD TOE AMPUTATION LEFT; Surgeon: Cecil Buenrostro Jr., MD; Location: [facility]; Service: Orthopedics; Laterality: Left; ANTERIOR CERVICAL DISCECTOMY W/ FUSION Bilateral 07/17/2020 Procedure: Cervical discectomy anterior with fusion C3-4; Surgeon: Tyree Tan MD; Location: [facility]; Service: Neurosurgery; Laterality: Bilateral; AORTOGRAM N/A 01/26/2024 Procedure: ABDOMINAL AORTIC ANGIOGRAM, LLE ANGIOGRAM, LEFT ANTERIOR TIBIAL ATHERECTOMY, LEFT ANTERIOR TIBIAL ANGIOPLASTY; Surgeon: Archie Olvera MD; Location: [facility]; Service: Vascular; Laterality: N/A; CONTRAST: 50 ML, FT: 2 MIN 54 SEC, DOSE: 66 MGY. AORTOGRAM Left 07/03/2025 Procedure: ARTERIOGRAM LOWER EXTREMITY; Surgeon: Vaughn Hollingsworth DO; Location: [facility]; Service: Vascular; Laterality: Left; FT-6MINS 24SEC 140 MGY CONTRAST -15ML BACK SURGERY FOR DISC HERNIATION CARDIAC CATHETERIZATION CARDIAC CATHETERIZATION N/A 09/04/2024 Procedure: Peripheral angiography - Left lower extremity angio - Right femoral access; Surgeon: Jared Marcano MD; Location: [facility]; Service: Peripheral Vascular; Laterality: [...] Location: [facility]; Service: Orthopedics; Laterality: Left; INCISION AND DRAINAGE LEG Left 07/03/2025 Procedure: DEBRIDEMENT WOUND, PLACEMENT OF WOUND VAC; Surgeon: Vauhgn Hollingsworth DO; Location: [facility]; Service: Vascular; Laterality: Left; INTERVENTIONAL RADIOLOGY PROCEDURE N/A 05/02/2019 Procedure: IVC FILTER PLACEMENT; Surgeon: Pedro Zapien MD; Location: [facility]; Service: Interventional Radiology INTERVENTIONAL RADIOLOGY PROCEDURE Left 09/07/2024 Procedure: LEFT peroneal arteriovenous fistula embolization - Right femoral access; Surgeon: Jared Marcano MD; Location: [facility]; Service: Cardiovascular; Laterality: Left; Please coordinate with Gautam Patel ([facility]) [phone] who will bring coils LUMBAR DISCECTOMY N/A 05/03/2019 Procedure: THORACIC LAMINECTOMY T11-12; Surgeon: Tyree Tan MD; Location: [facility]; Service: Neurosurgery Pediatric History Patient Parents Not on file Other Topics Concern Not on file Social History Narrative Not on file family history includes Alcohol abuse in his father. Allergies[1] Medication: Current Medications[2] Antibiotics: Anti-Infectives (From admission, onward) Ordered Dose/Rate Route Frequency Start Stop 06/26/25 0831 vancomycin (VANCOCIN) capsule 125 mg Ordering Provider: Vaughn Hollingsworth DO Placed in Followed by Linked Group 125 mg Oral Weekly 08/01/25 0900 09/19/25 0859 06/26/25 0831 vancomycin (VANCOCIN) capsule 125 mg Ordering Provider: Vaughn Hollingsworth DO Placed in Followed by Linked Group 125 mg Oral Daily 07/25/25 0900 08/01/25 0859 07/24/25 0750 meropenem (MERREM) 500 mg in sodium chloride 0.9 % 100 mL MBP Status: Discontinued Ordering Provider: Siobhan, Osmany H, RPH 500 mg over 3 Hours Intravenous Every 8 Hours 07/24/25 1000 07/25/25 1023 07/24/25 0802 doxycycline (VIBRAMYCIN) 100 mg in sodium chloride 0.9 % 100 mL MBP Status: Discontinued Ordering Provider: Duglas Andres MD 100 mg Intravenous Every 12 Hours 07/24/25 0900 07/25/25 1023 07/23/25 0716 Pharmacy to dose vancomycin Status: Discontinued Ordering Provider: Duglas Andres MD Not Applicable Continuous PRN 07/23/25 0715 07/24/25 0749 06/26/25 0831 vancomycin (VANCOCIN) capsule 125 mg Ordering Provider: Vaughn Hollingsworth DO Placed in Followed by Linked Group 125 mg Oral 2 Times Daily 07/17/25 2100 07/24/25 20507/17/25 0742 micafungin sodium (MYCAMINE) 100 mg in sodium chloride 0.9 % 100 mL MBP Ordering Provider: Duglas Andres MD 100 mg Intravenous Every 24 Hours 07/17/25 0900 07/24/25 0859 07/16/25 0813 micafungin sodium (MYCAMINE) 100 mg in sodium chloride 0.9 % 100 mL MBP Ordering Provider: Duglas Andres MD 100 mg Intravenous Once 07/16/25 0900 07/16/25 0920 07/14/25 0909 micafungin sodium (MYCAMINE) 100 mg in sodium chloride 0.9 % 100 mL MBP Ordering Provider: Duglas Andres MD 100 mg Intravenous Once 07/14/25 1000 07/14/25 1220 07/11/25 1101 Vancomycin HCl 1,250 mg in sodium chloride 0.9 % 250 mL VTB Status: Discontinued Ordering Provider: Leonie Esquivel RPH 1,250 mg 200 mL/hr over 75 Minutes Intravenous Every 24 Hours 07/11/25 1200 07/24/25 0749 06/26/25 0831 vancomycin (VANCOCIN) capsule 125 mg Ordering Provider: Vaughn Hollingsworth DO Placed in Followed by Linked Group 125 mg Oral 3 Times Daily 07/10/25 1600 07/17/25 1559 07/09/25 0813 vancomycin (dosing per levels) Status: Discontinued Ordering Provider: Osmany Mccann RPH Not Applicable Daily 07/09/25 0900 07/11/25 1101 07/03/25 0814 vancomycin (VANCOCIN) 1,000 mg in sodium chloride 0.9 % 250 mL IVPB-VTB Status: Discontinued Ordering Provider: Vaughn Hollingsworth, DO 1,000 mg 250 mL/hr over 60 Minutes Intravenous Every 12 Hours 07/03/25 0900 07/09/25 0811 06/28/25 0724 vancomycin (VANCOCIN) 1,000 mg in sodium chloride 0.9 % 250 mL IVPB-VTB Status: Discontinued Ordering Provider: Duglas Andres MD 1,000 mg 250 mL/hr over 60 Minutes Intravenous Every 12 Hours 06/28/25 0900 07/03/25 0814 06/27/25 0812 Vancomycin HCl 1,250 mg in sodium chloride 0.9 % 250 mL VTB Status: Discontinued Ordering Provider: Osmany Mccann, RPH 1,250 mg 200 mL/hr over 75 Minutes Intravenous Every 12 Hours 06/27/25 2100 06/27/25 0813 06/27/25 0813 Vancomycin HCl 1,250 mg in sodium chloride 0.9 % 250 mL VTB Status: Discontinued Ordering Provider: Osmany Mccann, RPH 1,250 mg 200 mL/hr over 75 Minutes Intravenous Every 12 Hours 06/27/25 2100 06/28/25 0724 06/27/25 0856 vancomycin 2500 mg/500 mL 0.9% NS IVPB (S) Ordering Provider: Osmany Mccann, RPH 2,500 mg over 150 Minutes Intravenous Once 06/27/25 0945 06/27/25 1150 06/27/25 0808 vancomycin 2250 mg/500 mL 0.9% NS IVPB (S) Status: Discontinued Ordering Provider: Osmany Mccann, RPH 2,250 mg over 135 Minutes Intravenous Once 06/27/25 0900 06/27/25 0856 06/27/25 0739 Pharmacy to dose vancomycin Ordering Provider: Vaughn Hollingsworth, DO Not Applicable Continuous PRN 06/27/25 0739 07/11/25 0738 06/25/25 2312 DAPTOmycin (CUBICIN) 550 mg in sodium chloride 0.9 % 50 mL IVPB Status: Discontinued Ordering Provider: Amanda Bermudez MD 6 mg/kg ?? 94.6 kg (Adjusted) 100 mL/hr over 30 Minutes Intravenous Every 24 Hours 06/26/25 2100 06/27/25 0739 06/26/25 0847 meropenem (MERREM) 500 mg in sodium chloride 0.9 % 100 mL MBP Status: Discontinued Ordering Provider: Duglas Andres MD 500 mg over 3 Hours Intravenous Every 6 Hours 06/26/25 1600 07/24/25 0750 06/25/25 2303 piperacillin-tazobactam (ZOSYN) 4.5 g IVPB in 100 mL NS MBP (CD) Status: Discontinued Ordering Provider: Amanda Bermudez MD 4.5 g over 4 Hours Intravenous Every 8 Hours 06/26/25 1200 06/26/25 0846 06/26/25 0831 vancomycin (VANCOCIN) capsule 125 mg Ordering Provider: Vaughn Hollingsworth DO Placed in Followed by Linked Group 125 mg Oral 4 Times Daily 06/26/25 1200 07/10/25 1159 06/26/25 0847 meropenem (MERREM) 500 mg in sodium chloride 0.9 % 100 mL MBP Ordering Provider: Duglas Andres MD 500 mg over 30 Minutes Intravenous Once 06/26/25 0945 06/26/25 1047 06/26/25 0833 micafungin sodium (MYCAMINE) 100 mg in sodium chloride 0.9 % 100 mL MBP Ordering Provider: Duglas Andres MD 100 mg Intravenous Once 06/26/25 0930 06/26/25 0850 06/26/25 0113 methenamine (HIPREX) tablet 1 g Ordering Provider: Vaughn Hollingsworth DO 1 g Oral 2 Times Daily With Meals 06/26/25 0800 06/25/25 2303 piperacillin-tazobactam (ZOSYN) 3.375 g IVPB in 100 mL NS MBP (CD) Status: Discontinued Ordering Provider: Amanda Bermudez MD 3.375 g over 30 Minutes Intravenous Once 06/26/25 0600 06/25/25 2312 06/25/25 2312 piperacillin-tazobactam (ZOSYN) 4.5 g IVPB in 100 mL NS MBP (CD) Ordering Provider: Amnada Bermudez MD 4.5 g over 30 Minutes Intravenous Once 06/26/25 0600 06/26/25 0600 06/25/252111 DAPTOmycin (CUBICIN) 550 mg in sodium chloride 0.9 % 50 mL IVPB Ordering Provider: Ally Jeffers APRN 6 mg/kg ?? 94.6 kg (Adjusted) 100 mL/hr over 30 Minutes Intravenous Once 06/25/25212706/25/25 2307 06/25/252111 meropenem (MERREM) 1,000 mg in sodium chloride 0.9 % 100 mL MBP Ordering Provider: Ally Jeffers APRN 1,000 mg over 30 Minutes Intravenous Once 06/25/25212706/25/252236 Review of Systems 07/27/25 see above, otherwise unable Physical Exam: Vital Signs BP 138/70 (BP Location: Left arm, Patient Position: Lying) Pulse 89 Temp 97.8 ??F (36.6 ??C) (Oral) Resp 18 Ht 182.9 cm (72 ) Wt 116 kg (256 lb) SpO2 94% BMI 34.72 kg/m?? GENERAL: sleepy HEENT: Normocephalic, atraumatic. No conjunctival injection. No icterus. Oropharynx clear without evidence of thrush or exudate. No evidence of periodontal disease. NECK: Supple without nuchal rigidity. No mass. HEART: RRR; No murmur, rubs, gallops. LUNGS: diminished at bases; Clear to auscultation bilaterally without wheezing, rales, rhonchi. Normal respiratory effort. Nonlabored. No dullness. ABDOMEN: Soft, nontender, nondistended. Positive bowel sounds. No rebound or guarding. NO mass or HSM. EXT: see below MSK: FROM without joint effusions noted arms/legs. SKIN: Warm and dry without cutaneous eruptions on Inspection/palpation. NEURO: sleepy Left foot amputation noted surgical site covered. no discrete mass bulge or fluctuance. No crepitusor bulla Right side amputation no obvious open wound or new redness/induration Laboratory Data Results from last 7 days Lab Units 07/25/25 0617 SODIUM mmol/L 140 POTASSIUM mmol/L 5.2 CHLORIDE mmol/L 109* CO2 mmol/L 20.4* BUN mg/dL 27.2* CREATININE mg/dL 1.02 GLUCOSE mg/dL 89 CALCIUM mg/dL 9.1 Estimated Creatinine Clearance: 87.4 mL/min (by C-G formula based on SCr of 1.02 mg/dL). Microbiology: Radiology: Imaging Results (Last 72 Hours) No results found for the last 72 hours. Impression: --acute left lower leg/foot cellulitis and wound infection, prior culture July 2024 with ESBL Klebsiella pneumoniae and pseudomonas aeruginosa, pseudomonas was sensitive to Merrem per microbiology lab at [facility]. Cx at [facility] as below; He has had multiple surgeries and multiple p ractitioners recommend higher level amputation which he has refused. On prior admissions, he has refused outpatient IV antibiotics and he has refused placement for longer durations of IV antibiotics.This refusal of care has placed him at increased risk for poor outcome. Earlier in 2024 he was discharged to the care of Dr. Oneal, his outpatient ID doctor and Dr Faust his automobile travel club counselor for furthercare/workup ; readmission May 2025 and June 2025 with acute worsening in redness/drainage to left lower extremity. Surgery as above and ongoing IV abx, admission associated with bacteremia and mixed/MDR organisms; he remained opposed to amputation; past Cx with MRSA/PSA/ESBL at prior admissions; culture June 02, 2025 with Proteus/MRSA/PSA; Cx June 2025 below; further imaging no definitive osteomyelitis but also unable to exclude per radiology at [facility]; surgery with I&D 07/03 but no further bone debridement/amputation; patient/family opted for comfort care/hospice/palliative care as of July 25 --E Faecium bacteremia ; NOT vanco resistant; ?foot source -v- other; received approximately 4 weeks therapy, stopped July 24; see above, patient/family opted for comfort care/hospice/palliative care as of July 25 --Acute diarrhea, Norovirus + and C. Difficile PCR +, although toxin antigen negative earlier in stay. He has risk for active disease and does have symptomatology and requires antibiotics for other processes, and therefore oral vancomycin added although unable to definitively confirm active diseasewith toxin antigen negative ( although risk for false negative); supportive care ongoing --MRSA surveillance + --Peripheral arterial disease by past evaluation of vascular team in addition to history DVT. 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; postop after 07/03 surgery with decreased LOC, seen bymedicine and adjustments per them in medications; further neuro workup per medicine / neuro team; awake/interactive as of my 07/05 visit --noncompliance has remained a barrier to care --Hx QTc > 500 ms on prior EKG PLAN: -- see above, patient/family opted for comfort care/hospice/palliative care as of July 25; oralvancomycin taper to finish --I will check in again next week, call us if needed sooner --s/p 4 weeks IV vancomycin, stopped 07/24 --s/p mycamine/de los santos change again 07/16 --Partial history Per nursing staff Duglas Andres MD 07/27/2025 [1] Allergies Allergen Reactions Keppra [Levetiracetam] Other (See Comments) Acute psychosis Bupropion Unknown (See Comments) Codeine Nausea Only Hydrocodone Unknown (See Comments) Ketorolac Tromethamine Unknown (See Comments) [2] Current Facility-Administered Medications Medication Dose Route Frequency Provider Last Rate Last Admin acetaminophen (TYLENOL) tablet 650 mg 650 mg Oral Q4H PRN Amanda Bermudez MD 650 mg at 06/29/25 0343 Or acetaminophen (TYLENOL) 160 MG/5ML oral solution 650 mg 650 mg Oral Q4H PRN Amanda Bermudez MD Or acetaminophen (TYLENOL) suppository 650 mg 650 mg Rectal Q4H PRN Amanda Bermudez MD aluminum-magnesium hydroxide-simethicone (MAALOX MAX) 400-400-40 MG/5ML suspension 15 mL 15 mL [id number] PRN Amanda Bermudez MD [Held by provider] apixaban (ELIQUIS) tablet 5 mg 5 mg Oral BID Amanda Bermudez MD ascorbic acid (VITAMIN C) tablet 500 mg 500 mg Oral Daily Amanda Bermudez MD 500 mg at 07/01/25 0830 baclofen (LIORESAL) tablet 10 mg 10 mg Oral Q12H Amanda Bermudez MD 10 mg at 07/01/25 2144 sennosides-docusate (PERICOLACE) 8.6-50 MG per tablet 2 tablet 2 tablet Oral BID PRN Amanda Bermudez MD And polyethylene glycol (MIRALAX) packet 17 g 17 g Oral Daily PRN Amanda Bermudez MD And bisacodyl (DULCOLAX) EC tablet 5 mg 5 mg Oral Daily PRN Amanda Bermudez MD And bisacodyl (DULCOLAX) suppository 10 mg 10 mg Rectal Daily PRN Amanda Bermudez MD Calcium Replacement - Follow Nurse / BPA Driven Protocol Not Applicable PRN Amanda Bermudez MD carvedilol (COREG) tablet 3.125 mg 3.125 mg Oral BID With Meals Amanda Bermudez MD 3.125 mg at 07/01/25 1712 clopidogrel (PLAVIX) tablet 75 mg 75 mg Oral Daily Amanda Bermudez MD 75 mg at 07/01/25 0830 famotidine (PEPCID) tablet 20 mg 20 mg Oral BID AC Arnoldo Crews PharmD 20 mg at 07/02/25 0649 finasteride (PROSCAR) tablet 5 mg 5 mg Oral Daily Amanda Bermudez MD 5 mg at 07/01/25 0830 folic acid (FOLVITE) tablet 1 mg 1 mg Oral Daily Amanda Bermudez MD 1 mg at 07/01/25 0830 gabapentin (NEURONTIN) capsule 300 mg 300 mg Oral Q8H Milena Jo APRN 300 mg at 07/02/25 0649 heparin (porcine) 5000 UNIT/ML injection 5,000 Units 5,000 Units Subcutaneous Q8H Lupe Albert APRN 5,000 Units at 07/02/25 0649 influenza vac split high-dose (FLUZONE HIGH DOSE) injection 0.5 mL 0.5 mL Intramuscular During Hospitalization Kris Boston DO insulin glargine (LANTUS, SEMGLEE) injection 56 Units 56 Units Subcutaneous Nightly Amanda Bermudez MD 56 Units at 07/01/25 2145 ipratropium-albuterol (DUO-NEB) nebulizer solution 3 mL 3 mL Nebulization Q6H PRN Amanda Bermudez MD lamoTRIgine (LaMICtal) tablet 100 mg 100 mg Oral Daily Amanda Bermudez MD 100 mg at 07/01/25 0830 lamoTRIgine (LaMICtal) tablet 250 mg 250 mg Oral Nightly Amanda Bermudez MD 250 mg at 07/01/25 2144 Magnesium Cardiology Dose Replacement - Follow Nurse / BPA Driven Protocol Not Applicable PRN Amanda Bermudez MD meropenem (MERREM) 500 mg in sodium chloride 0.9 % 100 mL MBP 500 mg Intravenous Q6H Duglas Andres MD 500 mg at 07/02/25 0359 methenamine (HIPREX) tablet 1 g 1 g Oral BID With Meals Amanda Bermudez MD 1 g at 07/01/25 1713 multivitamin with minerals 1 tablet 1 tablet Oral Daily Amanda Bermudez MD 1 tablet at 07/01/25 0830 naloxone (NARCAN) injection 0.4 mg 0.4 mg Intravenous Q5 Min PRN Amanda Bermudez MD nitroglycerin (NITROSTAT) SL tablet 0.4 mg 0.4 mg Sublingual Q5 Min PRN Amanda Bermudez MD ondansetron (ZOFRAN) injection 4 mg 4 mg Intravenous Q6H PRN Amanda Bermudez MD 4 mg at 06/29/25 1646 oxyCODONE-acetaminophen (PERCOCET) 10-325 MG per tablet 1 tablet 1 tablet Oral Q6H PRN Kris Boston DO 1 tablet at 07/02/25 0125 Pharmacy to dose vancomycin Not Applicable Continuous PRN Duglas Andres MD Phosphorus Replacement - Follow Nurse / BPA Driven Protocol Not Applicable PRN Amanda Bermudez MD Potassium Replacement - Follow Nurse / BPA Driven Protocol Not Applicable PRN Amanda Bermudez MD sacubitril-valsartan (ENTRESTO) 24-26 MG tablet 1 tablet 1 tablet Oral BID Amanda Bermudez MD 1 tablet at 07/01/25 2144 sodium chloride 0.9 % flush 10 mL 10 mL Intravenous PRN Ally Jeffers V, DIABETES NURSE sodium chloride 0.9 % flush 10 mL 10 mL Intravenous Q12H Amanda Bermudez MD 10 mL at 07/01/25 0832 sodium chloride 0.9 % flush 10 mL 10 mL Intravenous PRN Amanda Bermudez MD sodium chloride 0.9 % flush 10 mL 10 mL Intravenous Q12H Duglas Andres MD 10 mL at 07/01/25 2145 sodium chloride 0.9 % flush 10 mL 10 mL Intravenous PRN Duglas Andres MD sodium chloride 0.9 % flush 20 mL 20 mL Intravenous PRN Duglas Andres MD sodium chloride 0.9 % infusion 40 mL 40 mL Intravenous PRN Duglas Andres MD vancomycin (VANCOCIN) 1,000 mg in sodium chloride 0.9 % 250 mL IVPB-VTB 1,000 mg Intravenous Q12H Osmany Mccann, RPH 250 mL/hr at 07/01/25 214 1,000 mg at 07/01/252142 vancomycin (VANCOCIN) capsule 125 mg 125 mg Oral 4x Daily Duglas Andres MD 125 mg at Followed by [START ON 07/10/2025] vancomycin (VANCOCIN) capsule 125 mg 125 mg Oral TID Duglas Andres MD Followed by [START ON 07/17/2025] vancomycin (VANCOCIN) capsule 125 mg 125 mg Oral BID Duglas Andres MD Followed by [START ON 07/25/2025] vancomycin (VANCOCIN) capsule 125 mg 125 mg Oral Daily Duglas Andres MD Followed by [START ON 08/01/2025] vancomycin (VANCOCIN) capsule 125 mg 125 mg Oral Weekly Duglas Andres MD * Stacey Garcia RN - 07/26/2025 4:01 PM EST Continued Stay Note [facility] Patient Name: Trung Pool Today's Date: 07/26/2025 Admit Date: 06/25/2025 Plan: To be determined Discharge Plan Row Name 07/26/25 1558 Plan Plan To be determined Plan Comments Visit made to pt, pt eating lunch, denies any needs. Pt stated is hopeful can go to along term care facility close to home. liaison planner will continue to follow on the periphery while placement is secured for pt. Please call [phone] if can be of further assistance. Discharge Codes No documentation. Expected Discharge Date and Time Expected Discharge Date Expected Discharge Time Jul 30, 2025 Stacey Garcia RN * Talisha Resendez Irma, DIABETES NURSE - 07/26/2025 11:41 AM EST Palliative Care Daily Progress Note C/C: Patient awake and pleasant. S: Medical record reviewed. Follow-up visit for GOC and symptom management. Events noted. Patient awake and alert, pleasant. He is ongoing comfort measures and planning to go to [facility] with hospice. Taking PO pain medication. ROS: Denies pain, nausea, shortness of breath. O: Code Status: Code Status and Medical Interventions: No CPR (Do Not Attempt to Resuscitate); Comfort Measures Ordered at: 07/25/25 1024 Code Status (Patient has no pulse and is not breathing): No CPR (Do Not Attempt to Resuscitate) Medical Interventions (Patient has pulse or is breathing): Comfort Measures Level Of Support Discussed With: Patient Health Care Surrogate Advanced Directives: Advance Directive Status: Patient has advance directive, copy in chart Goals of Care: Ongoing. Palliative Performance Scale Score: 30% BP 105/73 Pulse 88 Temp 98 ??F (36.7 ??C) Resp 18 Ht 182.9 cm (72 ) Wt 116 kg (256 lb) SpO2 95% BMI 34.72 kg/m?? Intake/Output Summary (Last 24 hours) at 07/26/2025 1205 Last data filed at 07/26/2025 0345 Gross per 24 hour Intake 300 ml Output 1350 ml Net -1050 ml PE: General Appearance: Patient lying in bed, awake, alert, chronically ill appearing, cooperative, NAD HEENT: NC/AT, MMM, face relaxed Neck: supple, trachea midline, no JVD Lungs: CTA bilat, diminished in bases; respirations regular, even and unlabored; RR 16-18 on exam,on RA Heart: RRR, normal S1 and S2, no M/R/G Abdomen: Normal bowel sounds, soft, nontender, nondistended G/U: Deferred MSK/Extremities: RBKA, LLE with all toes amputated, Pulses: Pulses palpable and equal bilaterally Skin: Warm, dry Neurologic: Alert, awake, oriented x2-3 Psych: calm Meds: Reviewed and changes noted Labs: Results from last 7 days Lab Units 07/20/25 0508 WBC 10*3/mm3 6.74 HEMOGLOBIN g/dL 9.6* HEMATOCRIT % 30.3* PLATELETS 10*3/mm3 228 Results from last 7 days Lab Units 07/25/25 0617 SODIUM mmol/L 140 POTASSIUM mmol/L 5.2 CHLORIDE mmol/L 109* CO2 mmol/L 20.4* BUN mg/dL 27.2* CREATININE mg/dL 1.02 GLUCOSE mg/dL 89 CALCIUM mg/dL 9.1 Results from last 7 days Lab Units 07/25/25 0617 SODIUM mmol/L 140 POTASSIUM mmol/L 5.2 CHLORIDE mmol/L 109* CO2 mmol/L 20.4* BUN mg/dL 27.2* CREATININE mg/dL 1.02 CALCIUM mg/dL 9.1 GLUCOSE mg/dL 89 Imaging Results (Last 72 Hours) No results found for the last 72 hours. Diagnostics: Reviewed A: Wound infection Primary hypertension Seizure disorder Coronary artery disease involving ouzinkie coronary artery of ouzinkie heart without angina pectoris PAD (peripheral artery disease) Type 2 diabetes mellitus, with long-term current use of insulin Cellulitis Acute UTI (urinary tract infection) Diarrhea of presumed infectious origin Acute on chronic blood loss anemia BPH without obstruction/lower urinary tract symptoms GERD without esophagitis Bilateral inguinal hernia Gastroenteritis due to norovirus 70 y.o. male with seizure disorder, CAD, PAD, T2DM, UTI, anemia, GERD, cellulitis, pain. S/S: Pain -LLE cellulitis, MSK back pain - Gabapentin 400mg PO q 8 hours -Baclofen 5mg PO q 12 hours - Oxycodone 10mg PO q 6 hours scheduled and q 4 hours prn moderate pain -Tylenol 1000mg PO q 8 hours scheduled 2. Debility -power chair assist at baseline 3. Nausea -resolved 4. GOC -Comfort measures -per discussion with patient and sisterZhane -he confirms that his sister is HCS, confirms code status -reviewed symptoms and medications -ongoing full treatment 07/06: Reviewed options for DNR/DNI in light of serious illness, reviewed continuing IV antibioticsversus stopping and electing hospice services. Patient considering options and is appreciative of information. Will follow up on Wednesday. 07/10: Patient refused medications overnight, however is in agreement with continuing his medications/antibiotics and labs. He declines medications for depression as he has expressed feelings of hopelessness. Reviewed options, he is still considering. 07/17: Patient reports feeling better overall. He is awaiting placement for rehab. He reports pain controlled on current regimen. 07/24: Patient requiring restraints due to agitation. Neurology follow and adjusting medications. Attempted to call sister at 1240pm, no answer, voicemail left with Palliative Office Number. Call back received at 1420 from sister, reviewed patient's change in mental status and condition. Reviewed current interventions and concern for patient decline. Plan to meet tomorrow (07/25) at 10am at bedside with sister in order to discuss GOC. Discussed with Dr. Reynolds and Shara Bermudez APRN Neurology. 07/25: Met with sister, Zhane, at bedside and patient. Patient disoriented to location, he does participate in GOC discussion and states he wants hospice services, is in agreement with comfort measures. Reviewed no further labs, no further IV antibiotics, no further restraints, discussed symptom management throughout end of life. He would like to get closer to home with hospice services. Will consult hospice. Sister supportive and in agreement with comfort focused plan of care. Discussed with Dr. Ridley. 07/26: Patient pleasant and awake today. Ongoing comfort measures. P: Follow up visit. Patient awake, alert, and pleasant today. Ongoing comfort measures. Hospice following for placement. Palliative Care Team will continue to follow patient. Please do not hesitate to contact us regarding further sx mgmt or GOC needs. Talisha Resendez APRN 07/26/2025 Time spent: 15 minutes * Ju Gonzalez APRN - 07/26/2025 10:19 AM EST Images from the original note were not included. [facility] Medicine Services PROGRESS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 includes Alcohol abuse in his father. Allergies[1] Medication: Current Medications[2] Antibiotics: Anti-Infectives (From admission, onward) Ordered Dose/Rate Route Frequency Start Stop 06/26/25 0831 vancomycin (VANCOCIN) capsule 125 mg Ordering Provider: Vaughn Hollingsworth DO Placed in Followed by Linked [facility] 125 mg Oral Weekly 08/01/25 0900 09/19/25 0859 06/26/25 0831 vancomycin (VANCOCIN) capsule 125 mg Ordering Provider: Vaughn Hollingsworth DO Placed in Followed by Linked [facility] 125 mg Oral Daily 07/25/25 0900 08/01/25 0859 07/24/25 0750 meropenem (MERREM) 500 mg in sodium chloride 0.9 % 100 mL MBP Status: Discontinued Ordering Provider: Osmany Mccann RP 500 mg over 3 Hours Intravenous Every 8 Hours 07/24/25 1000 07/25/25 1023 07/24/25 0802 doxycycline (VIBRAMYCIN) 100 mg in sodium chloride 0.9 % 100 mL MBP Status: Discontinued Ordering Provider: Duglas Andres MD 100 mg Intravenous Every 12 Hours 07/24/25 0900 07/25/25 1023 07/23/25 0716 Pharmacy to dose vancomycin Status: Discontinued Ordering Provider: Duglas Andres MD Not Applicable Continuous PRN 07/23/25 0715 07/24/25 0749 06/26/25 0831 vancomycin (VANCOCIN) capsule 125 mg Ordering Provider: Vaughn Hollingsworth DO Placed in Followed by Linked [facility] 125 mg Oral 2 Times Daily 07/17/25 2100 07/24/25205807/17/25 0742 micafungin sodium (MYCAMINE) 100 mg in sodium chloride 0.9 % 100 mL MBP Ordering Provider: Duglas Andres MD 100 mg Intravenous Every 24 Hours 07/17/25 0900 07/24/25 0859 07/16/25 0813 micafungin sodium (MYCAMINE) 100 mg in sodium chloride 0.9 % 100 mL MBP Ordering Provider: Duglas Andres MD 100 mg Intravenous Once 07/16/25 0900 07/16/25 0920 07/14/25 0909 micafungin sodium (MYCAMINE) 100 mg in sodium chloride 0.9 % 100 mL MBP Ordering Provider: Duglas Andres MD 100 mg Intravenous Once 07/14/25 1000 07/14/25 1220 07/11/25 1101 Vancomycin HCl 1,250 mg in sodium chloride 0.9 % 250 mL VTB Status: Discontinued Ordering Provider: Leonie Esquivel [facility] 1,250 mg 200 mL/hr over 75 Minutes Intravenous Every 24 Hours 07/11/25 1200 07/24/25 0749 06/26/25 0831 vancomycin (VANCOCIN) capsule 125 mg Ordering Provider: Vaughn Hollingsworth DO Placed in Followed by [facility] 125 mg Oral 3 Times Daily 07/10/25 1600 07/17/25 1559 07/09/25 0813 vancomycin (dosing per levels) Status: Discontinued Ordering Provider: Osmany Mccann RPH Not Applicable Daily 07/09/25 0900 07/11/25 1101 07/03/25 0814 vancomycin (VANCOCIN) 1,000 mg in sodium chloride 0.9 % 250 mL IVPB-VTB Status: Discontinued Ordering Provider: Vaughn Hollingsworth DO 1,000 mg 250 mL/hr over 60 Minutes Intravenous Every 12 Hours 07/03/25 0900 07/09/25 0811 06/28/25 0724 vancomycin (VANCOCIN) 1,000 mg in sodium chloride 0.9 % 250 mL IVPB-VTB Status: Discontinued Ordering Provider: Duglas Andres MD 1,000 mg 250 mL/hr over 60 Minutes Intravenous Every 12 Hours 06/28/25 0900 07/03/25 0814 06/27/25 0812 Vancomycin HCl 1,250 mg in sodium chloride 0.9 % 250 mL VTB Status: Discontinued Ordering Provider: Osmany Mccann RPH 1,250 mg 200 mL/hr over 75 Minutes Intravenous Every 12 Hours 06/27/25 2100 06/27/25 0813 06/27/25 0813 Vancomycin HCl 1,250 mg in sodium chloride 0.9 % 250 mL VTB Status: Discontinued Ordering Provider: Osmany Mccann H, RPH 1,250 mg 200 mL/hr over 75 Minutes Intravenous Every 12 Hours 06/27/25 2100 06/28/25 0724 06/27/25 0856 vancomycin 2500 mg/500 mL 0.9% NS IVPB ([facility]) Ordering Provider: Osmany Mccann, RPH 2,500 mg over 150 Minutes Intravenous Once 06/27/25 0945 06/27/25 1150 06/27/25 0808 vancomycin 2250 mg/500 mL 0.9% NS IVPB ([facility]) Status: Discontinued Ordering Provider: Osmany Mccann, RPH 2,250 mg over 135 Minutes Intravenous Once 06/27/25 0900 06/27/25 0856 06/27/25 0739 Pharmacy to dose vancomycin Ordering Provider: Vaughn Hollingsworth, DO Not Applicable Continuous PRN 06/27/25 0739 07/11/25 0738 06/25/25 2312 DAPTOmycin (CUBICIN) 550 mg in sodium chloride 0.9 % 50 mL IVPB Status: Discontinued Ordering Provider: Amanda Bermudez MD 6 mg/kg ?? 94.6 kg (Adjusted) 100 mL/hr over 30 Minutes Intravenous Every 24 Hours 06/26/25 2100 06/27/25 0739 06/26/25 0847 meropenem (MERREM) 500 mg in sodium chloride 0.9 % 100 mL MBP Status: Discontinued Ordering Provider: Duglas Andres MD 500 mg over 3 Hours Intravenous Every 6 Hours 06/26/25 1600 07/24/25 0750 06/25/25 2303 piperacillin-tazobactam (ZOSYN) 4.5 g IVPB in 100 mL NS MBP (CD) Status: Discontinued Ordering Provider: Amanda Bermudez MD 4.5 g over 4 Hours Intravenous Every 8 Hours 06/26/25 1200 06/26/25 0846 06/26/25 0831 vancomycin (VANCOCIN) capsule 125 mg Ordering Provider: Vaughn Hollingsworth, Placed in Followed by Linked Group 125 mg Oral 4 Times Daily 06/26/25 1200 07/10/25 1159 06/26/25 0847 meropenem (MERREM) 500 mg in sodium chloride 0.9 % 100 mL MBP Ordering Provider: Duglas Andres MD 500 mg over 30 Minutes Intravenous Once 06/26/25 0945 06/26/25 1047 06/26/25 0833 micafungin sodium (MYCAMINE) 100 mg in sodium chloride 0.9 % 100 mL MBP Ordering Provider: Duglas Andres MD 100 mg Intravenous Once 06/26/25 0930 06/26/25 0850 06/26/25 0113 methenamine (HIPREX) tablet 1 g Ordering Provider: Vaughn Hollingsworth, DO 1 g Oral 2 Times Daily With Meals 06/26/25 0800 06/25/25 230 piperacillin-tazobactam (ZOSYN) 3.375 g IVPB in 100 mL NS MBP (CD) Status: Discontinued Ordering Provider: Amanda Bermudez MD 3.375 g over 30 Minutes Intravenous Once 06/26/25 0600 06/25/25 2312 06/25/25 231 piperacillin-tazobactam (ZOSYN) 4.5 g IVPB in 100 mL NS MBP (CD) Ordering Provider: Amanda Bermudez MD 4.5 g over 30 Minutes Intravenous Once 06/26/25 0600 06/26/25 0600 06/25/252111 DAPTOmycin (CUBICIN) 550 mg in sodium chloride 0.9 % 50 mL IVPB Ordering Provider: Ally Jeffers APRN 6 mg/kg ?? 94.6 kg (Adjusted) 100 mL/hr over 30 Minutes Intravenous Once 06/25/258 06/25/25 2307 06/25/252111 meropenem (MERREM) 1,000 mg in sodium chloride 0.9 % 100 mL MBP Ordering Provider: Ally Jeffers APRN 1,000 mg over 30 Minutes Intravenous Once 06/25/25212706/25/252236 Review of Systems 07/26/25 see above, otherwise unable Physical Exam: Vital Signs BP 143/78 Pulse 87 Temp 98 ??F (36.7 ??C) Resp 18 Ht 182.9 cm (72 ) Wt 116 kg (256 lb) SpO2 95% BMI 34.72 kg/m?? GENERAL: sleepy HEENT: Normocephalic, atraumatic. No conjunctival injection. No icterus. Oropharynx clear without evidence of thrush or exudate. No evidence of periodontal disease. NECK: Supple without nuchal rigidity. No mass. HEART: RRR; No murmur, rubs, gallops. LUNGS: diminished at bases; Clear to auscultation bilaterally without wheezing, rales, rhonchi. Normal respiratory effort. Nonlabored. No dullness. ABDOMEN: Soft, nontender, nondistended. Positive bowel sounds. No rebound or guarding. NO mass or HSM. EXT: see below : With [place] catheter. MSK: FROM without joint effusions noted arms/legs. SKIN: Warm and dry without cutaneous eruptions on Inspection/palpation. NEURO: sleepy Left foot amputation noted surgical site covered. no discrete mass bulge or fluctuance. No crepitusor bulla Right side amputation no obvious open wound or new redness/induration Laboratory Data Results from last 7 days Lab Units 07/20/25 0508 WBC 10*3/mm3 6.74 HEMOGLOBIN g/dL 9.6* HEMATOCRIT % 30.3* PLATELETS 10*3/mm3 228 Results from last 7 days Lab Units 07/25/25 0617 SODIUM mmol/L 140 POTASSIUM mmol/L 5.2 CHLORIDE mmol/L 109* CO2 mmol/L 20.4* BUN mg/dL 27.2* CREATININE mg/dL 1.02 GLUCOSE mg/dL 89 CALCIUM mg/dL 9.1 Estimated Creatinine Clearance: 87.4 mL/min (by C-G formula based on SCr of 1.02 mg/dL). Microbiology: Radiology: Imaging Results (Last 72 Hours) No results found for the last 72 hours. Impression: --acute left lower leg/foot cellulitis and wound infection, prior culture July 2024 with ESBL Klebsiella pneumoniae and pseudomonas aeruginosa, pseudomonas was sensitive to Merrem per microbiology lab at [facility]. Cx at [facility] as below; He has had multiple surgeries and multiple p ractitioners recommend higher level amputation which he has refused. On prior admissions, he has refused outpatient IV antibiotics and he has refused placement for longer durations of IV antibiotics.This refusal of care has placed him at increased risk for poor outcome. Earlier in 2024 he was discharged to the care of Dr. Oneal, his outpatient ID doctor and Dr Faust his automobile travel club counselor for furthercare/workup ; readmission May 2025 and June 2025 with acute worsening in redness/drainage to left lower extremity. Surgery as above and ongoing IV abx, admission associated with bacteremia and mixed/MDR organisms; he remained opposed to amputation; past Cx with MRSA/PSA/ESBL at prior admissions; culture June 02, 2025 with Proteus/MRSA/PSA; Cx June 2025 below; further imaging no definitive osteomyelitis but also unable to exclude per radiology at distal first/second MT; surgery with I&D 07/03 but no further bone debridement/amputation; patient/family opted for comfort care/hospice/palliative care as of July 25 --E Faecium bacteremia ; NOT vanco resistant; ?foot source -v- other; received approximately 4 weeks therapy, stopped July 24; see above, patient/family opted for comfort care/hospice/palliative care as of July 25 --Acute diarrhea, Norovirus + and C. Difficile PCR +, although toxin antigen negative earlier in stay. He has risk for active disease and does have symptomatology and requires antibiotics for other processes, and therefore oral vancomycin added although unable to definitively confirm active diseasewith toxin antigen negative ( although risk for false negative); supportive care ongoing --MRSA surveillance + --Peripheral arterial disease by past evaluation of vascular team in addition to history DVT. 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; postop after 07/03 surgery with decreased LOC, seen bymedicine and adjustments per them in medications; further neuro workup per medicine / neuro team; awake/interactive as of my 07/05 visit --noncompliance has remained a barrier to care --Hx QTc > 500 ms on prior EKG PLAN: -- see above, patient/family opted for comfort care/hospice/palliative care as of July 25; oralvancomycin taper to finish --s/p 4 weeks IV vancomycin, stopped 07/24 --s/p mycamine/de los santos change again 07/16 --Partial history Per nursing staff --d/w multidisciplinary team with respect to complexity above/below and transitions of care. --Highly complex set of issues with high risk for further serious morbidity and other serious sequela This visit included the following complex service elements: Complex medical decision-making associated with antimicrobial prescribing. Managed infection treatment protocol associated with transitions of care for this complex patient. Duglas Andres MD 07/26/2025 [1] Allergies Allergen Reactions Keppra [Levetiracetam] Other (See Comments) Acute psychosis Bupropion Unknown (See Comments) Codeine Nausea Only Hydrocodone Unknown (See Comments) Ketorolac Tromethamine Unknown (See Comments) [2] Current Facility-Administered Medications Medication Dose Route Frequency Provider Last Rate Last Admin acetaminophen (TYLENOL) tablet 650 mg 650 mg Oral Q4H PRN Amanda Bermudez MD 650 mg at 06/29/25 0343 Or acetaminophen (TYLENOL) 160 MG/5ML oral solution 650 mg 650 mg Oral Q4H PRN Amanda Bermudez MD Or acetaminophen (TYLENOL) suppository 650 mg 650 mg Rectal Q4H PRN Amanda Bermudez MD aluminum-magnesium hydroxide-simethicone (MAALOX MAX) 400-400-40 MG/5ML suspension 15 mL 15 mL [id number] PRN Amanda Bermudez MD [Held by provider] apixaban (ELIQUIS) tablet 5 mg 5 mg Oral BID Amanda Bermudez MD ascorbic acid (VITAMIN C) tablet 500 mg 500 mg Oral Daily Amanda Bermudez MD 500 mg at 07/01/25 0830 baclofen (LIORESAL) tablet 10 mg 10 mg Oral Q12H Amanda Bermudez MD 10 mg at 07/01/25 2144 sennosides-docusate (PERICOLACE) 8.6-50 MG per tablet 2 tablet 2 tablet Oral BID PRN Amanda Bermudez MD And polyethylene glycol (MIRALAX) packet 17 g 17 g Oral Daily PRN Amanda Bermudez MD And bisacodyl (DULCOLAX) EC tablet 5 mg 5 mg Oral Daily PRN Amanda Bermudez MD And bisacodyl (DULCOLAX) suppository 10 mg 10 mg Rectal Daily PRN Amanda Bermudez MD Calcium Replacement - Follow Nurse / BPA Driven Protocol Not Applicable PRN Amanda Bermudez MD carvedilol (COREG) tablet 3.125 mg 3.125 mg Oral BID With Meals Amanda Bermudez MD 3.125 mg at 07/01/25 1712 clopidogrel (PLAVIX) tablet 75 mg 75 mg Oral Daily Amanda Bermudez MD 75 mg at 07/01/25 0830 famotidine (PEPCID) tablet 20 mg 20 mg Oral BID AC Arnoldo Crews, Amanda 20 mg at 07/02/25 0649 finasteride (PROSCAR) tablet 5 mg 5 mg Oral Daily Amanda Bermudez MD 5 mg at 07/01/25 0830 folic acid (FOLVITE) tablet 1 mg 1 mg Oral Daily Amanda Bermudez MD 1 mg at 07/01/25 0830 gabapentin (NEURONTIN) capsule 300 mg 300 mg Oral Q8H Milena Jo APRN 300 mg at 07/02/25 0649 heparin (porcine) 5000 UNIT/ML injection 5,000 Units 5,000 Units Subcutaneous Q8H Lupe Albert APRN 5,000 Units at 07/02/25 0649 influenza vac split high-dose (FLUZONE HIGH DOSE) injection 0.5 mL 0.5 mL Intramuscular During Hospitalization Kris Boston DO insulin glargine (LANTUS, SEMGLEE) injection 56 Units 56 Units Subcutaneous Nightly Amanda Bermudez MD 56 Units at 07/01/25 2145 ipratropium-albuterol (DUO-NEB) nebulizer solution 3 mL 3 mL Nebulization Q6H PRN Amanda Bermudez MD lamoTRIgine (LaMICtal) tablet 100 mg 100 mg Oral Daily Amanda Bermudez MD 100 mg at 07/01/25 0830 lamoTRIgine (LaMICtal) tablet 250 mg 250 mg Oral Nightly Amanda Bermudez MD 250 mg at 07/01/25 2144 Magnesium Cardiology Dose Replacement - Follow Nurse / BPA Driven Protocol Not Applicable PRN Amanda Bermudez MD meropenem (MERREM) 500 mg in sodium chloride 0.9 % 100 mL MBP 500 mg Intravenous Q6H Duglas Andres MD 500 mg at 07/02/25 0359 methenamine (HIPREX) tablet 1 g 1 g Oral BID With Meals Amanda Bermudez MD 1 g at 07/01/25 1713 multivitamin with minerals 1 tablet 1 tablet Oral Daily Amanda Bermudez MD 1 tablet at 07/01/25 0830 naloxone (NARCAN) injection 0.4 mg 0.4 mg Intravenous Q5 Min PRN Amanda Bermudez MD nitroglycerin (NITROSTAT) SL tablet 0.4 mg 0.4 mg Sublingual Q5 Min PRN Amanda Bermudez MD ondansetron (ZOFRAN) injection 4 mg 4 mg Intravenous Q6H PRN Amanda Bermudez MD 4 mg at 06/29/25 1646 oxyCODONE-acetaminophen (PERCOCET) 10-325 MG per tablet 1 tablet 1 tablet Oral Q6H PRN Kris Boston DO 1 tablet at 07/02/25 0125 Pharmacy to dose vancomycin Not Applicable Continuous PRN Duglas Andres MD Phosphorus Replacement - Follow Nurse / BPA Driven Protocol Not Applicable PRN Amanda Bermudez MD Potassium Replacement - Follow Nurse / BPA Driven Protocol Not Applicable PRN Amanda Bermudez MD sacubitril-valsartan (ENTRESTO) 24-26 MG tablet 1 tablet 1 tablet Oral BID Amanda Bermudez MD 1 tablet at 07/01/25 2144 sodium chloride 0.9 % flush 10 mL 10 mL Intravenous PRN Ally Jeffers V, DIABETES NURSE sodium chloride 0.9 % flush 10 mL 10 mL Intravenous Q12H Amanda Bermudez MD 10 mL at 07/01/25 0832 sodium chloride 0.9 % flush 10 mL 10 mL Intravenous PRN Amanda Bermudez MD sodium chloride 0.9 % flush 10 mL 10 mL Intravenous Q12H Duglas Andres MD 10 mL at 07/01/25 2145 sodium chloride 0.9 % flush 10 mL 10 mL Intravenous PRN Duglas Andres MD sodium chloride 0.9 % flush 20 mL 20 mL Intravenous PRN Duglas Andres MD sodium chloride 0.9 % infusion 40 mL 40 mL Intravenous PRN Duglas Andres MD vancomycin (VANCOCIN) 1,000 mg in sodium chloride 0.9 % 250 mL IVPB-VTB 1,000 mg Intravenous Q12H Osmany Mccann, [facility] 250 mL/hr at 07/01/25 2143 1,000 mg at 07/01/25 2143 vancomycin (VANCOCIN) capsule 125 mg 125 mg Oral 4x Daily Duglas Andres MD 125 mg at Followed by [START ON 07/10/2025] vancomycin (VANCOCIN) capsule 125 mg 125 mg Oral TID Duglas Andres MD Followed by [START ON 07/17/2025] vancomycin (VANCOCIN) capsule 125 mg 125 mg Oral BID Duglas Andres MD Followed by [START ON 07/25/2025] vancomycin (VANCOCIN) capsule 125 mg 125 mg Oral Daily Duglas Andres MD Followed by [START ON 08/01/2025] vancomycin (VANCOCIN) capsule 125 mg 125 mg Oral Weekly Duglas Andres MD * Mart Ridley MD - 07/25/2025 3:19 PM EST Images from the original note were not included. [facility] Medicine Services PROGRESS NOTE Patient Name: Trung Pool : [id number] Date of Admission: 06/25/2025 Primary Care Physician: Gustavo Mehta MD Subjective CC: f/u LLE HPI: No current pain. Mr Pool says he doesn't want any procedures on his leg, and specifically does not want an amputation. States he understands that healing is unlikely, and acknowledges that he may dieif his wounds go untreated. Discussed possible Hospice and Mr Pool says he is agreeable to proceed with Hospice care. Objective Vital Signs: Temp: [97.7 ??F (36.5 ??C)-98.1 ??F (36.7 ??C)] 97.7 ??F (36.5 ??C) Heart Rate: [72-104] 103 Resp: [18] 18 BP: (151-170)/(80-92) 170/92 Physical Exam: Appears chronically debilitated, in bed MM moist RRR Breath sounds grossly clear Abd soft, NT Right AKA, left lower leg and foot in clean wraps Awake, speech clear, able to state year correctly as well as the reason for this hospitalization. Normal affect Results Reviewed: LAB RESULTS: Lab 07/20/25 0508 WBC 6.74 HEMOGLOBIN 9.6* HEMATOCRIT 30.3* PLATELETS 228 MCV 78.3* Lab 07/25/25 0617 07/24/25 0403 07/23/25 0442 07/20/25 0508 07/19/25 0835 SODIUM 140 138 137 136 -- POTASSIUM 5.2 6.3* 5.8* 5.0 -- CHLORIDE 109* 107 105 107 -- CO2 20.4* 22.2 21.8* 19.5* -- ANION GAP 10.6 8.8 10.2 9.5 -- BUN 27.2* 29.3* 20.3 22.6 -- CREATININE 1.02 1.35* 0.94 0.81 -- EGFR 78.6 56.1* 86.7 94.3 -- GLUCOSE 89 115* 104* 90 -- CALCIUM 9.1 8.8 9.3 8.7 -- MAGNESIUM -- -- -- -- 1.9 Brief Urine Lab Results (Last result in the past 365 days) Color Clarity Blood Leuk Est Nitrite Protein CREAT Urine HCG 07/14/2552 Yellow Clear Trace Moderate (2+) Negative 30 mg/dL (1+) Microbiology Results Abnormal Procedure Component Value - Date/Time Urine Culture - Urine, Indwelling Urethral Catheter [[id number]] (Abnormal) Collected: 07/14/2552 Lab Status: Final result Specimen: Urine from Indwelling Urethral Catheter Updated: 07/15/25 1329 Urine Culture Yeast isolated Narrative: No further workup for yeast Colonization of the urinary tract without infection is common. Treatment is discouraged unless the patient is symptomatic, , or undergoing an invasive urologic procedure. Urine Culture - Urine, Indwelling Urethral Catheter [[id number]] (Abnormal) (Susceptibility) Collected: 06/25/252000 Lab Status: Final result Specimen: Urine from Indwelling Urethral Catheter Updated: 06/30/25 1001 Urine Culture >100,000 CFU/mL Proteus mirabilis Narrative: Colonization of the urinary tract without infection is common. Treatment is discouraged unless the patient is symptomatic, , or undergoing an invasive urologic procedure. Susceptibility Proteus mirabilis MURRAY Amoxicillin + Clavulanate Susceptible Ampicillin Resistant Ampicillin + Sulbactam Intermediate Cefazolin (Urine) Resistant Cefepime Resistant Ceftazidime Susceptible Ceftriaxone Resistant Cefuroxime axetil Resistant Ciprofloxacin Resistant Gentamicin Susceptible Levofloxacin Resistant Nitrofurantoin Resistant Piperacillin + Tazobactam Susceptible Trimethoprim + Sulfamethoxazole Resistant Blood Culture - Blood, Hand, Right [[id number]] (Abnormal) (Susceptibility) Collected: 06/25/25 2030 Lab Status: Edited Result - FINAL Specimen: Blood from Hand, Right Updated: 06/29/25 0713 Blood Culture Enterococcus faecium Comment: Infectious disease consultation is highly recommended. Isolated from Anaerobic Bottle Gram Stain Anaerobic Bottle Gram positive cocci in chains Narrative: Less than seven (7) mL's of blood was collected. Insufficient quantity may yield false negative results. requested linezolid & daptomycin 06/28/25 Susceptibility Enterococcus faecium MURRAY Method Not Specified Ampicillin Susceptible Daptomycin Susceptible dose dependent Gentamicin High Level Synergy Susceptible Linezolid Susceptible (C) [1] Vancomycin Susceptible [1] Appended report. These results have been appended to a previously final verified report. Wound Culture - Swab, Foot, Left [[id number]] (Abnormal) (Susceptibility) Collected: 06/25/25 1818 Lab Status: Final result Specimen: Swab from Foot, Left Updated: 06/29/25 0645 Wound Culture Heavy growth (4+) Staphylococcus aureus, MRSA Comment: Methicillin resistant Staphylococcus aureus, Patient may be an isolation risk. Moderate growth (3+) Morganella morganii ssp morganii Moderate growth (3+) Proteus mirabilis ESBL Comment: Consider infectious disease consult. Susceptibility results may not correlate to clinical outcomes. Gram Stain Few (2+) WBCs seen Few (2+) Gram positive cocci in pairs, chains and clusters Few (2+) Gram negative bacilli Susceptibility Staphylococcus aureus, MRSA MURRAY Clindamycin Susceptible Erythromycin Resistant Oxacillin Resistant Rifampin Susceptible Tetracycline Susceptible Trimethoprim + Sulfamethoxazole Resistant Vancomycin Susceptible Susceptibility Morganella morganii ssp morganii MURRAY Method Not Specified Amoxicillin + Clavulanate Resistant Ampicillin Resistant Ampicillin + Sulbactam Resistant Cefazolin (Non Urine) Resistant Cefepime Susceptible Cefotaxime Susceptible Ceftazidime Susceptible Cefuroxime axetil Resistant Ciprofloxacin Resistant Gentamicin Susceptible Levofloxacin Resistant Piperacillin + Tazobactam Susceptible Tetracycline Susceptible Trimethoprim + Sulfamethoxazole Resistant Susceptibility Proteus mirabilis ESBL MURRAY Ciprofloxacin Resistant Ertapenem Susceptible Levofloxacin Resistant Meropenem Susceptible Tetracycline Resistant Trimethoprim + Sulfamethoxazole Resistant Susceptibility Comments Morganella morganii ssp morganii Cefotaxime susceptibility can be used as a surrogate for ceftriaxone susceptibility Proteus mirabilis ESBL With the exception of urinary-sourced infections, aminoglycosides should not be used as monotherapy. Blood Culture ID, PCR - Blood, Hand, Right [[id number]] (Abnormal) Collected: 06/25/252029 Lab Status: Final result Specimen: Blood from Hand, Right Updated: 06/26/252101 BCID, PCR Enterococcus faecium. Zee/B (vancomycin resistance gene) not detected. Identification byBCID2 PCR. BOTTLE TYPE Anaerobic Bottle Narrative: Infectious disease consultation is highly recommended to rule out distant foci of infection. MRSA Screen, PCR (Inpatient) - Swab, Nares [[id number]] (Abnormal) Collected: 06/26/2545 Lab Status: Final result Specimen: Swab from Nares Updated: 06/26/2550 MRSA PCR Positive Narrative: The negative predictive value of this diagnostic test is high and should only be used to consider de-escalating anti-MRSA therapy. A positive result may indicate colonization with MRSA and must be correlated clinically. Gastrointestinal Panel, PCR - Stool, Per Rectum [[id number]] (Abnormal) Collected: 06/26/2545 Lab Status: Final result Specimen: Stool from Per Rectum Updated: 06/26/25 0850 Campylobacter Not Detected Plesiomonas shigelloides Not Detected Salmonella Not Detected Vibrio Not Detected Vibrio cholerae Not Detected Yersinia enterocolitica Not Detected Enteroaggregative E. coli (EAEC) Not Detected Enteropathogenic E. coli (EPEC) Not Detected Enterotoxigenic E. coli (ETEC) lt/st Not Detected Shiga-like toxin-producing E. coli (STEC) stx1/stx2 Not Detected Shigella/Enteroinvasive E. coli (EIEC) Not Detected Cryptosporidium Not Detected Cyclospora cayetanensis Not Detected Entamoeba histolytica Not Detected Giardia lamblia Not Detected Adenovirus F40/41 Not Detected Astrovirus Not Detected Norovirus GI/GII Detected Comment: If a positive Norovirus result is inconsistent with clinical presentation, the positive Norovirus result should be confirmed using another method. Rotavirus A Not Detected Sapovirus (I, II, IV or V) Not Detected Clostridioides difficile Toxin - Stool, Per Rectum [[id number]] (Abnormal) Collected: 06/26/2545 Lab Status: Final result Specimen: Stool from Per Rectum Updated: 06/26/25754 Narrative: The following orders were created for panel order Clostridioides difficile Toxin - Stool, Per Rectum. Procedure Abnormality Status --------- ------ Clostridioides difficile...[[id number]] Abnormal Final result Please view results for these tests on the individual orders. Clostridioides difficile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 sodium chloride 0.9 % 100 mL MBP Ordering Provider: Duglas Andres MD 100 mg Intravenous Every 24 Hours 07/17/25 0900 07/24/25 0859 07/16/25 0813 micafungin sodium (MYCAMINE) 100 mg in sodium chloride 0.9 % 100 mL MBP Ordering Provider: Duglas Andres MD 100 mg Intravenous Once 07/16/25 0900 07/16/25 0920 07/14/25 0909 micafungin sodium (MYCAMINE) 100 mg in sodium chloride 0.9 % 100 mL MBP Ordering Provider: Duglas Andres MD 100 mg Intravenous Once 07/14/25 1000 07/14/25 1220 07/11/25 1101 Vancomycin HCl 1,250 mg in sodium chloride 0.9 % 250 mL VTB Status: Discontinued Ordering Provider: Leonie Esquivel RPH 1,250 mg 200 mL/hr over 75 Minutes Intravenous Every 24 Hours 07/11/25 1200 07/24/25 0749 06/26/25 0831 vancomycin (VANCOCIN) capsule 125 mg Ordering Provider: Vaughn Hollingsworth DO Placed in Followed by Linked Group 125 mg Oral 3 Times Daily 07/10/25 1600 07/17/25 1559 07/09/25 0813 vancomycin (dosing per levels) Status: Discontinued Ordering Provider: Osmany Mccann RPH Not Applicable Daily 07/09/25 0900 07/11/25 1101 07/03/25 0814 vancomycin (VANCOCIN) 1,000 mg in sodium chloride 0.9 % 250 mL IVPB-VTB Status: Discontinued Ordering Provider: Vaughn Hollingsworth DO 1,000 mg 250 mL/hr over 60 Minutes Intravenous Every 12 Hours 07/03/25 0900 07/09/25 0811 06/28/25 0724 vancomycin (VANCOCIN) 1,000 mg in sodium chloride 0.9 % 250 mL IVPB-VTB Status: Discontinued Ordering Provider: Duglas Andres MD 1,000 mg 250 mL/hr over 60 Minutes Intravenous Every 12 Hours 06/28/25 0900 07/03/25 0814 06/27/25 0812 Vancomycin HCl 1,250 mg in sodium chloride 0.9 % 250 mL VTB Status: Discontinued Ordering Provider: Osmany Mccann RPH 1,250 mg 200 mL/hr over 75 Minutes Intravenous Every 12 Hours 06/27/25 2100 06/27/25 0813 06/27/25 0813 Vancomycin HCl 1,250 mg in sodium chloride 0.9 % 250 mL VTB Status: Discontinued Ordering Provider: Osmany Mccann RPH 1,250 mg 200 mL/hr over 75 Minutes Intravenous Every 12 Hours 06/27/25 2100 06/28/25 0724 06/27/25 0856 vancomycin 2500 mg/500 mL 0.9% NS IVPB ([facility]) Ordering Provider: Osmany Mccann RPH 2,500 mg over 150 Minutes Intravenous Once 06/27/25 0945 06/27/25 1150 06/27/25 0808 vancomycin 2250 mg/500 mL 0.9% NS IVPB ([facility]) Status: Discontinued Ordering Provider: Osmany Mccann RPNiall 2,250 mg over 135 Minutes Intravenous Once 06/27/25 0900 06/27/25 0856 06/27/25 0739 Pharmacy to dose vancomycin Ordering Provider: Vaughn Hollingsworth, DO Not Applicable Continuous PRN 06/27/25 0739 07/11/25 0738 06/25/25 2312 DAPTOmycin (CUBICIN) 550 mg in sodium chloride 0.9 % 50 mL IVPB Status: Discontinued Ordering Provider: Amanda Bermudez MD 6 mg/kg ?? 94.6 kg (Adjusted) 100 mL/hr over 30 Minutes Intravenous Every 24 Hours 06/26/25 2100 06/27/25 0739 06/26/25 0847 meropenem (MERREM) 500 mg in sodium chloride 0.9 % 100 mL MBP Status: Discontinued Ordering Provider: Duglas Andres MD 500 mg over 3 Hours Intravenous Every 6 Hours 06/26/25 1600 07/24/25 0750 06/25/25 2303 piperacillin-tazobactam (ZOSYN) 4.5 g IVPB in 100 mL NS MBP (CD) Status: Discontinued Ordering Provider: Amanda Bermudez MD 4.5 g over 4 Hours Intravenous Every 8 Hours 06/26/25 1200 06/26/25 0846 06/26/25 0831 vancomycin (VANCOCIN) capsule 125 mg Ordering Provider: Vaughn Hollingsworth, DO Placed in Followed by Linked Group 125 mg Oral 4 Times Daily 06/26/25 1200 07/10/25 1159 06/26/25 0847 meropenem (MERREM) 500 mg in sodium chloride 0.9 % 100 mL MBP Ordering Provider: Duglas Andres MD 500 mg over 30 Minutes Intravenous Once 06/26/25 0945 06/26/25 1047 06/26/25 0833 micafungin sodium (MYCAMINE) 100 mg in sodium chloride 0.9 % 100 mL MBP Ordering Provider: Duglas Andres MD 100 mg Intravenous Once 06/26/25 0930 06/26/25 0850 06/26/25 0113 methenamine (HIPREX) tablet 1 g Ordering Provider: Vaughn Hollingsworth, DO 1 g Oral 2 Times Daily With Meals 06/26/25 0806/25/252302 piperacillin-tazobactam (ZOSYN) 3.375 g IVPB in 100 mL NS MBP (CD) Status: Discontinued Ordering Provider: Amanda Bermudez MD 3.375 g over 30 Minutes Intravenous Once 06/26/25 0606/25/25231106/25/25 231 piperacillin-tazobactam (ZOSYN) 4.5 g IVPB in 100 mL NS MBP (CD) Ordering Provider: Amanda Bermudez MD 4.5 g over 30 Minutes Intravenous Once 06/26/25 0606/26/2559906/25/252111 DAPTOmycin (CUBICIN) 550 mg in sodium chloride 0.9 % 50 mL IVPB Ordering Provider: Ally Jeffers APRN 6 mg/kg ?? 94.6 kg (Adjusted) 100 mL/hr over 30 Minutes Intravenous Once 06/25/25212706/25/25230606/25/252111 meropenem (MERREM) 1,000 mg in sodium chloride 0.9 % 100 mL MBP Ordering Provider: Ally Jeffers APRN 1,000 mg over 30 Minutes Intravenous Once 06/25/25212706/25/252236 Review of Systems 07/25/25 otherwise unable Physical Exam: Vital Signs BP 159/81 (BP Location: Right arm, Patient Position: Lying) Pulse 104 Temp 98 ??F (36.7 ??C) (Oral) Resp 18 Ht 182.9 cm (72 ) Wt 116 kg (256 lb) SpO2 93% BMI 34.72 kg/m?? GENERAL: sleepy HEENT: Normocephalic, atraumatic. No conjunctival injection. No icterus. Oropharynx clear without evidence of thrush or exudate. No evidence of periodontal disease. NECK: Supple without nuchal rigidity. No mass. HEART: RRR; No murmur, rubs, gallops. LUNGS: diminished at bases; Clear to auscultation bilaterally without wheezing, rales, rhonchi. Normal respiratory effort. Nonlabored. No dullness. ABDOMEN: Soft, nontender, nondistended. Positive bowel sounds. No rebound or guarding. NO mass or HSM. EXT: see below : With De [place] catheter. MSK: FROM without joint effusions noted arms/legs. SKIN: Warm and dry without cutaneous eruptions on Inspection/palpation. NEURO: sleepy Left foot amputation noted surgical site covered. Vague erythema LLE but no discrete mass bulge or fluctuance. No crepitus or bulla Right side amputation no obvious open wound or new redness/induration Laboratory Data Results from last 7 days Lab Units 07/20/25 0508 WBC 10*3/mm3 6.74 HEMOGLOBIN g/dL 9.6* HEMATOCRIT % 30.3* PLATELETS 10*3/mm3 228 Results from last 7 days Lab Units 07/25/25 0617 SODIUM mmol/L 140 POTASSIUM mmol/L 5.2 CHLORIDE mmol/L 109* CO2 mmol/L 20.4* BUN mg/dL 27.2* CREATININE mg/dL 1.02 GLUCOSE mg/dL 89 CALCIUM mg/dL 9.1 Estimated Creatinine Clearance: 87.4 mL/min (by C-G formula based on SCr of 1.02 mg/dL). Microbiology: Radiology: Imaging Results (Last 72 Hours) No results found for the last 72 hours. Impression: --acute left lower leg/foot cellulitis and wound infection, prior culture July 2024 with ESBL Klebsiella pneumoniae and pseudomonas aeruginosa, pseudomonas was sensitive to Merrem per microbiology lab at [facility]. Cx at [facility] as below; He has had multiple surgeries and multiple p ractitioners recommend higher level amputation which he has refused. On prior admissions, he has refused outpatient IV antibiotics and he has refused placement for longer durations of IV antibiotics.This refusal of care has placed him at increased risk for poor outcome. Earlier in 2024 he was discharged to the care of Dr. Oneal, his outpatient ID doctor and Dr Faust his automobile travel club counselor for furthercare/workup ; readmission May 2025 and June 2025 with acute worsening in redness/drainage to left lower extremity. Surgery as above and ongoing IV abx, admission associated with bacteremia and mixed/MDR organisms; High risk for further serious morbidity and other serious sequela including p ersistent/recurrent or nonhealing wounds, persistent/progressive or recurrent infection and risk for further functional/limb loss, higher-level amputation and other dire consequences including sepsis/mortalityetc. he remains opposed to amputation; he voices understanding his poor prognosis overall including risks for dire consequences; past Cx with MRSA/PSA/ESBL at prior admissions; culture June 02, 2025 with Proteus/MRSA/PSA; Cx June 2025 below; further imaging no definitive osteomyelitis but also unable to exclude per radiology at distal first/second [facility]; surgery with I&D 07/03 but no further bone debridement/amputation --abnormal creat 07/24; transiently hypotensive July 23, patient had refused therapy and is repeatedly removed IVs, per discussion with Dr Reynolds; creat better 07/25. --E Faecium bacteremia ; NOT vanco resistant; ?foot source -v- other; received approximately 4 weeks therapy, stopped July 24 --Acute hematuria/UTI with chronic indwelling De [place] Santos catheter. Proteus in culture previously; nursing reports De Los Santos catheter change earlier in admission; repeat urine 07/14 with yeast, ?colonizer -v- evolving UTI, de los santos to change and s/p empiric mycamine x 1 then monitor; if stronger evidence for yeast as pathogen then may need ampho b prooduct if not responding to echinocnadin given Hx QT prolongation --Acute diarrhea, Norovirus + and C. Difficile PCR +, although toxin antigen negative earlier in stay. He has risk for active disease and does have symptomatology and requires antibiotics for other processes, and therefore oral vancomycin added although unable to definitively confirm active diseasewith toxin antigen negative ( although risk for false negative); supportive care ongoing --MRSA surveillance + --Peripheral arterial disease by past evaluation of vascular team in addition to history DVT. 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; postop after 07/03 surgery with decreased LOC, seen bymedicine and adjustments per them in medications; further neuro workup per medicine / neuro team; awake/interactive as of my 07/05 visit --noncompliance has remained a barrier to care --Hx QTc > 500 ms on prior EKG PLAN: --IV merrem/ doxy potentially 6 weeks from surgery 07/03, oral vancomycin ongoing although ultimately to depend on goals of care, etc..; again, final duration to depend on clinical course/surgical plans/patient goals of care/tolerability etc. He does not have enough assistance at home to do IV abx at home per him ; case management and palliative teams following --s/p 4 weeks IV vancomycin, stopped 07/24 --s/p mycamine/de los santos change again 07/16 wound culture June 02, 2025 with Proteus /MRSA, PSA urine culture June 02, 2025 E Coli/ESBL Proteus urine culture 06/25 proteus blood culture 06/25 E Faecium vanco/amp sensitive; dapto sens but dose dependent wound culture 06/25 (surface) with MRSA and ESBL proteus and morganella --Check/review labs cultures and scans --Partial history Per nursing staff --d/w Dr Reynolds/ multidisciplinary team with respect to complexity above/below [...] transitions of care for this complex patient. Duglas Andres MD 07/25/2025 [1] Allergies Allergen Reactions Keppra [Levetiracetam] Other (See Comments) Acute psychosis Bupropion Unknown (See Comments) Codeine Nausea Only Hydrocodone Unknown (See Comments) Ketorolac Tromethamine Unknown (See Comments) [2] Current Facility-Administered Medications Medication Dose Route Frequency Provider Last Rate Last Admin acetaminophen (TYLENOL) tablet 650 mg 650 mg Oral Q4H PRN Amanda Bermudez MD 650 mg at 06/29/25 0343 Or acetaminophen (TYLENOL) 160 MG/5ML oral solution 650 mg 650 mg Oral Q4H PRN Amanda Bermudez MD Or acetaminophen (TYLENOL) suppository 650 mg 650 mg Rectal Q4H PRN Amanda Bermudez MD aluminum-magnesium hydroxide-simethicone (MAALOX MAX) 400-400-40 MG/5ML suspension 15 mL 15 mL [id number] PRN Amanda Bermudez MD [Held by provider] apixaban (ELIQUIS) tablet 5 mg 5 mg Oral BID Amanda Bermudez MD ascorbic acid (VITAMIN C) tablet 500 mg 500 mg Oral Daily Amanda Bermudez MD 500 mg at 07/01/25 0830 baclofen (LIORESAL) tablet 10 mg 10 mg Oral Q12H Amanda Bermudez MD 10 mg at 07/01/25 2144 sennosides-docusate (PERICOLACE) 8.6-50 MG per tablet 2 tablet 2 tablet Oral BID PRN Amanda Bermudez MD And polyethylene glycol (MIRALAX) packet 17 g 17 g Oral Daily PRN Amanda Bermudez MD And bisacodyl (DULCOLAX) EC tablet 5 mg 5 mg Oral Daily PRN Amanda Bermudez MD And bisacodyl (DULCOLAX) suppository 10 mg 10 mg Rectal Daily PRN Amanda Bermudez MD Calcium Replacement - Follow Nurse / BPA Driven Protocol Not Applicable PRN Amanda Bermudez MD carvedilol (COREG) tablet 3.125 mg 3.125 mg Oral BID With Meals Amanda Bermudez MD 3.125 mg at 07/01/25 1712 clopidogrel (PLAVIX) tablet 75 mg 75 mg Oral Daily Amanda Bermudez MD 75 mg at 07/01/25 0830 famotidine (PEPCID) tablet 20 mg 20 mg Oral BID AC Arnoldo Crews, Amanda 20 mg at 07/02/25 0649 finasteride (PROSCAR) tablet 5 mg 5 mg Oral Daily Amanda Bermudez MD 5 mg at 07/01/25 0830 folic acid (FOLVITE) tablet 1 mg 1 mg Oral Daily Amanda Bermudez MD 1 mg at 07/01/25 0830 gabapentin (NEURONTIN) capsule 300 mg 300 mg Oral Q8H Milena Jo APRN 300 mg at 07/02/25 0649 heparin (porcine) 5000 UNIT/ML injection 5,000 Units 5,000 Units Subcutaneous Q8H Albert, Lupe E, DIABETES NURSE 5,000 Units at 07/02/25 0649 influenza vac split high-dose (FLUZONE HIGH DOSE) injection 0.5 mL 0.5 mL Intramuscular During Hospitalization Kris Boston DO insulin glargine (LANTUS, SEMGLEE) injection 56 Units 56 Units Subcutaneous Nightly Amanda Bermudez MD 56 Units at 07/01/25 2145 ipratropium-albuterol (DUO-NEB) nebulizer solution 3 mL 3 mL Nebulization Q6H PRN Amanda Bermudez MD lamoTRIgine (LaMICtal) tablet 100 mg 100 mg Oral Daily Amanda Bermudez MD 100 mg at 07/01/25 0830 lamoTRIgine (LaMICtal) tablet 250 mg 250 mg Oral Nightly Amanda Bermudez MD 250 mg at 07/01/25 2144 Magnesium Cardiology Dose Replacement - Follow Nurse / BPA Driven Protocol Not Applicable PRN Amanda Bermudez MD meropenem (MERREM) 500 mg in sodium chloride 0.9 % 100 mL MBP 500 mg Intravenous Q6H Duglas Andres MD 500 mg at 07/02/25 0359 methenamine (HIPREX) tablet 1 g 1 g Oral BID With Meals Amanda Bermudez MD 1 g at 07/01/25 1713 multivitamin with minerals 1 tablet 1 tablet Oral Daily Amanda Bermudez MD 1 tablet at 07/01/25 0830 naloxone (NARCAN) injection 0.4 mg 0.4 mg Intravenous Q5 Min PRN Amanda Bermudez MD nitroglycerin (NITROSTAT) SL tablet 0.4 mg 0.4 mg Sublingual Q5 Min PRN Amanda Bermudez MD ondansetron (ZOFRAN) injection 4 mg 4 mg Intravenous Q6H PRN Amanda Bermudez MD 4 mg at 06/29/25 1646 oxyCODONE-acetaminophen (PERCOCET) 10-325 MG per tablet 1 tablet 1 tablet Oral Q6H PRN Kris Boston DO 1 tablet at 07/02/25 0125 Pharmacy to dose vancomycin Not Applicable Continuous PRN Duglas Andres MD Phosphorus Replacement - Follow Nurse / BPA Driven Protocol Not Applicable PRN Amanda Bermudez MD Potassium Replacement - Follow Nurse / BPA Driven Protocol Not Applicable PRN Amanda Bermudez MD sacubitril-valsartan (ENTRESTO) 24-26 MG tablet 1 tablet 1 tablet Oral BID Amanda Bermudez MD 1 tablet at 07/01/25 214 sodium chloride 0.9 % flush 10 mL 10 mL Intravenous PRN Ally Jeffers V, DIABETES NURSE sodium chloride 0.9 % flush 10 mL 10 mL Intravenous Q12H Amanda Bermudez MD 10 mL at 07/01/25 0832 sodium chloride 0.9 % flush 10 mL 10 mL Intravenous PRN Amanda Bermudez MD sodium chloride 0.9 % flush 10 mL 10 mL Intravenous Q12H Duglas Andres MD 10 mL at 07/01/25 2145 sodium chloride 0.9 % flush 10 mL 10 mL Intravenous PRN Duglas Andres MD sodium chloride 0.9 % flush 20 mL 20 mL Intravenous PRN Duglas Andres MD sodium chloride 0.9 % infusion 40 mL 40 mL Intravenous PRN Duglas Andres MD vancomycin (VANCOCIN) 1,000 mg in sodium chloride 0.9 % 250 mL IVPB-VTB 1,000 mg Intravenous Q12H Osmany Mccann, [facility] 250 mL/hr at 07/01/252142 1,000 mg at 07/01/252142 vancomycin (VANCOCIN) capsule 125 mg 125 mg Oral 4x Daily Duglas Andres MD 125 mg at Followed by [START ON 07/10/2025] vancomycin (VANCOCIN) capsule 125 mg 125 mg Oral TID Duglas Andres MD Followed by [START ON 07/17/2025] vancomycin (VANCOCIN) capsule 125 mg 125 mg Oral BID Duglas Andres MD Followed by [START ON 07/25/2025] vancomycin (VANCOCIN) capsule 125 mg 125 mg Oral Daily Duglas Andres MD Followed by [START ON 08/01/2025] vancomycin (VANCOCIN) capsule 125 mg 125 mg Oral Weekly Duglas Andres MD * Mal, Talisha E, DIABETES NURSE - 07/24/2025 2:24 PM EST Palliative Care Daily Progress Note C/C: Patient in restraints due to agitation, sleeping at time of visit. S: Medical record reviewed. Follow-up visit for GOC and symptom management. Events noted. Patient required restraints due to agitation. He is sleeping at time of visit. ROS: ROS limited by sleeping. O: Code Status: Code Status and Medical Interventions: CPR (Attempt to Resuscitate); Full Support Ordered at: 06/25/25 2310 Code Status (Patient has no pulse and is not breathing): CPR (Attempt to Resuscitate) Medical Interventions (Patient has pulse or is breathing): Full Support Level Of Support Discussed With: Patient Advanced Directives: Advance Directive Status: Patient has advance directive, copy in chart Goals of Care: Ongoing. Palliative Performance Scale Score: 30% BP 104/55 (BP Location: Left arm, Patient Position: Lying) Pulse 81 Temp 98.7 ??F (37.1 ??C) (Axillary) Resp 18 Ht 182.9 cm (72 ) Wt 116 kg (256 lb) SpO2 (!) 89% BMI 34.72 kg/m?? Intake/Output Summary (Last 24 hours) at 07/24/2025 1424 Last data filed at 07/24/2025 0500 Gross per 24 hour Intake 360 ml Output 650 ml Net -290 ml PE: General Appearance: Patient lying in bed, sleeping, chronically ill appearing, cooperative, NAD HEENT: NC/AT, MMM, face relaxed Neck: supple, trachea midline, no JVD Lungs: CTA bilat, diminished in bases; respirations regular, even and unlabored; RR 16-18 on exam, on RA Heart: RRR, normal S1 and S2, no M/R/G Abdomen: Normal bowel sounds, soft, nontender, nondistended G/U: Deferred MSK/Extremities: RBKA, LLE with all toes amputated, bilateral wrist restraints in place Pulses: Pulses palpable and equal bilaterally Skin: Warm, dry Neurologic: sleeping Psych: sleeping Meds: Reviewed and changes noted Labs: Results from last 7 days Lab Units 07/20/25 0508 WBC 10*3/mm3 6.74 HEMOGLOBIN g/dL 9.6* HEMATOCRIT % 30.3* PLATELETS 10*3/mm3 228 Results from last 7 days Lab Units 07/24/25 0403 SODIUM mmol/L 138 POTASSIUM mmol/L 6.3* CHLORIDE mmol/L 107 CO2 mmol/L 22.2 BUN mg/dL 29.3* CREATININE mg/dL 1.35* GLUCOSE mg/dL 115* CALCIUM mg/dL 8.8 Results from last 7 days Lab Units 07/24/25 0403 SODIUM mmol/L 138 POTASSIUM mmol/L 6.3* CHLORIDE mmol/L 107 CO2 mmol/L 22.2 BUN mg/dL 29.3* CREATININE mg/dL 1.35* CALCIUM mg/dL 8.8 GLUCOSE mg/dL 115* Imaging Results (Last 72 Hours) No results found for the last 72 hours. Diagnostics: Reviewed A: Wound infection Primary hypertension Seizure disorder Coronary artery disease involving [place] coronary artery of [place] heart without angina pectoris PAD (peripheral artery disease) Type 2 diabetes mellitus, with long-term current use of insulin Cellulitis Acute UTI (urinary tract infection) Diarrhea of presumed infectious origin Acute on chronic blood loss anemia BPH without obstruction/lower urinary tract symptoms GERD without esophagitis Bilateral inguinal hernia Gastroenteritis due to norovirus 70 y.o. male with seizure disorder, CAD, PAD, T2DM, UTI, anemia, GERD, cellulitis, pain. S/S: Pain -LLE cellulitis, MSK back pain -decreased Gabapentin 400mg PO q 8 hours -decreased Baclofen 5mg PO q 12 hours -decreased Oxycodone 10mg PO q 6 hours scheduled and q 4 hours prn moderate pain -Tylenol 1000mg PO q 8 hours scheduled 2. Debility -power chair assist at baseline 3. Nausea -resolved 4. GOC -Full Code/Full Support -per discussion with patient -he confirms that his sister is HCS, confirms code status -reviewed symptoms and medications -ongoing full treatment 07/06: Reviewed options for DNR/DNI in light of serious illness, reviewed continuing IV antibioticsversus stopping and electing hospice services. Patient considering options and is appreciative of information. Will follow up on Wednesday. 07/10: Patient refused medications overnight, however is in agreement with continuing his medications/antibiotics and labs. He declines medications for depression as he has expressed feelings of hopelessness. Reviewed options, he is still considering. 07/17: Patient reports feeling better overall. He is awaiting placement for rehab. He reports pain controlled on current regimen. 07/24: Patient requiring restraints due to agitation. Neurology follow and adjusting medications. Attempted to call sister at 1240pm, no answer, voicemail left with Palliative Office Number. Call back received at 1420 from sister, reviewed patient's change in mental status and condition. Reviewed current interventions and concern for patient decline. Plan to meet tomorrow (07/25) at 10am at bedside with sister in order to discuss GOC. Discussed with Dr. Reynolds and Shara Bermudez APRN Neurology. P: Follow up visit. Contacted sister and plan for GOC meeting tomorrow (07/25) at 10am at bedside. Medications adjusted as above after discussion with Shara Bermudez APRN Neurology. Palliative Care Team will continue to follow patient. Please do not hesitate to contact us regarding further sx mgmt or GOC needs. Talisha Resendez APRN 07/24/2025 Time spent: 30 minutes * Shara Bermudez APRN - 07/24/2025 1:09 PM EST [facility] Neurology Progress Note Patient Name: Trung Pool : 1955 Primary Care Physician: Gustavo Mehta MD Date of admission: 06/25/2025 Subjective Chief Complaint: Altered mental status History of Present Illness Patient seen restless in bed. Unable to answer questions or follow commands. Moved all extremities spontaneous and symmetrically Review of Systems GUILLAUME due to mentation Objective Physical Exam Vitals and nursing note reviewed. Constitutional: General: He is not in acute distress. Appearance: He is ill-appearing. Eyes: Extraocular Movements: Extraocular movements intact. Pupils: Pupils are equal, round, and reactive to light. Comments: No nystagmus noted Cardiovascular: Rate and Rhythm: Normal rate. Neurological: Mental Status: He is alert. Cranial Nerves: No facial asymmetry. Sensory: Sensory deficit present. Motor: Weakness present. No tremor or seizure activity. Comments: Physical exam limited due to patient agitation Moved all extremities spontaneously and symmetrically Vitals: Temp: [97.7 ??F (36.5 ??C)-98.7 ??F (37.1 ??C)] 98.7 ??F (37.1 ??C) Heart Rate: [68-99] 81 Resp: [16-19] 18 BP: (104-152)/(55-90) 104/55 Current Medications Current Facility-Administered Medications: acetaminophen (TYLENOL) tablet 1,000 mg, 1,000 mg, Oral, Q8H, Talisha Resendez, DIABETES NURSE, 1,000 mg at 07/23/25 2351 aluminum-magnesium hydroxide-simethicone (MAALOX MAX) 400-400-40 MG/5ML suspension 15 mL, 15 mL, Oral, Q6H PRN, Vaughn Hollingsworth, apixaban (ELIQUIS) tablet 5 mg, 5 mg, Oral, BID, Margaret Massey, DIABETES NURSE, 5 mg at 07/23/25 211 ascorbic acid (VITAMIN C) tablet 500 mg, 500 mg, Oral, Daily, Vaughn Hollingsworth, , 500 mg at 944 baclofen (LIORESAL) tablet 10 mg, 10 mg, Oral, Q12H, Vaughn Hollingsworth DO, 10 mg at 07/23/25 211 benzonatate (TESSALON) capsule 200 mg, 200 mg, Oral, TID PRN, Mere Armas PA-C, 200 mg at 07/18/25 153 sennosides-docusate (PERICOLACE) 8.6-50 MG per tablet 2 tablet, 2 tablet, Oral, BID PRN AND polyethylene glycol (MIRALAX) packet 17 g, 17 g, Oral, Daily PRN AND bisacodyl (DULCOLAX) EC tablet5 mg, 5 mg, Oral, Daily PRN AND bisacodyl (DULCOLAX) suppository 10 mg, 10 mg, Rectal, Daily PRN, Vaughn Hollingsworth DO Calcium Replacement - Follow Nurse / BPA Driven Protocol, , Not Applicable, PRN, Vaughn Hollingsworth, carvedilol (COREG) tablet 3.125 mg, 3.125 mg, Oral, BID With Meals, Vaughn Hollingsworth DO, 3.125 mg at 07/23/25 1737 clopidogrel (PLAVIX) tablet 75 mg, 75 mg, Oral, Daily, Vaughn Hollingsworth DO, 75 mg at 07/23/25 0944 dextrose (D50W) (25 g/50 mL) IV injection 25 g, 25 g, Intravenous, Q15 Min PRN, Gigi Alcantara MD, 25 g at 07/14/25 1502 dextrose (GLUTOSE) oral gel 15 g, 15 g, Oral, Q15 Min PRN, Gigi Alcantara MD diphenhydrAMINE-zinc acetate 2-0.1 % cream 1 Application, 1 Application, Topical, TID PRN, Flynn Orellana PA-C doxycycline (VIBRAMYCIN) 100 mg in sodium chloride 0.9 % 100 mL MBP, 100 mg, Intravenous, Q12H, Duglas Andres MD famotidine (PEPCID) tablet 20 mg, 20 mg, Oral, BID AC, Vaughn Hollingsworth DO, 20 mg at 07/23/25 174 finasteride (PROSCAR) tablet 5 mg, 5 mg, Oral, Daily, Vaughn Hollingsworth DO, 5 mg at 07/23/25 0944 folic acid (FOLVITE) tablet 1 mg, 1 mg, Oral, Daily, Vaughn Hollingsworth DO, 1 mg at 07/23/25 0944 gabapentin (NEURONTIN) capsule 600 mg, 600 mg, Oral, Q8H, Talisha Resendez, DIABETES NURSE, 600 mg at 116 glucagon (GLUCAGEN) injection 1 mg, 1 mg, Subcutaneous, Q15 Min PRN, Gigi Alcantara MD influenza vac split high-dose (FLUZONE HIGH DOSE) injection 0.5 mL, 0.5 mL, Intramuscular, During Hospitalization, Vaughn Hollingsworth DO insulin glargine (LANTUS, SEMGLEE) injection 30 Units, 30 Units, Subcutaneous, Nightly, Gigi Alcantara MD, 30 Units at 07/23/252117 ipratropium-albuterol (DUO-NEB) nebulizer solution 3 mL, 3 mL, Nebulization, Q6H PRN, Vuaghn Hollingsworth DO lamoTRIgine (LaMICtal) tablet 100 mg, 100 mg, Oral, Daily, Vaughn Hollingsworth, DO, 100 mg at 07/23/25 09 lamoTRIgine (LaMICtal) tablet 250 mg, 250 mg, Oral, Nightly, Vaughn Hollingsworth, DO, 250 mg at 07/23/252115 LORazepam (ATIVAN) injection 1 mg, 1 mg, Intramuscular, Q4H PRN, Ana Reynolds, DO, 1 mg at 07/23/25 2330 Magnesium Cardiology Dose Replacement - Follow Nurse / BPA Driven Protocol, , Not Applicable, PRN, Vaughn Hollingsworth S, DO meropenem (MERREM) 500 mg in sodium chloride 0.9 % 100 mL MBP, 500 mg, Intravenous, Q8H, Osmany Mccann, [facility] methenamine (HIPREX) tablet 1 g, 1 g, Oral, BID With Meals, Vaughn Hollingsworth, DO, 1 g at 07/23/25 173 mirtazapine (REMERON) tablet 15 mg, 15 mg, Oral, Nightly, Gigi Alcantara MD, 15 mg at 07/22/252141 multivitamin with minerals 1 tablet, 1 tablet, Oral, Daily, Vaughn Hollingsworth, DO, 1 tablet at 020 [DISCONTINUED] morphine injection 2 mg, 2 mg, Intravenous, Q4H PRN, 2 mg at 06/26/25 0539 AND naloxone (NARCAN) injection 0.4 mg, 0.4 mg, Intravenous, Q5 Min PRN, Vaughn Hollingsworth, DO OLANZapine (zyPREXA) injection 10 mg, 10 mg, Intramuscular, Nightly OR OLANZapine zydis (zyPREXA) disintegrating tablet 10 mg, 10 mg, Oral, Nightly, Cuco Posada MD, 10 mg at 07/23/252116 OLANZapine (zyPREXA) tablet 10 mg, 10 mg, Oral, BID, Cuco Posada MD, 10 mg at 07/23/252115 ondansetron (ZOFRAN) injection 4 mg, 4 mg, Intravenous, Q6H PRN, Vaughn Hollingsworth, DO, 4 mg at 07/16/25 0923 oxyCODONE (ROXICODONE) immediate release tablet 15 mg, 15 mg, Oral, Q6H, Talisha Resendez APRN, 15 mg at 07/23/25 2350 oxyCODONE (ROXICODONE) immediate release tablet 15 mg, 15 mg, Oral, Q4H PRN, Ana Reynolds, ,15 mg at 07/23/25 2116 Phosphorus Replacement - Follow Nurse / BPA Driven Protocol, , Not Applicable, PRN, Vaughn Hollingsworth S, DO Potassium Replacement - Follow Nurse / BPA Driven Protocol, , Not Applicable, PRN, Vaughn Hollingsworth S, DO Insert Peripheral IV, , , Once AND sodium chloride 0.9 % flush 10 mL, 10 mL, Intravenous, PRN, Vaughn Hollingsworth S, DO sodium chloride 0.9 % flush 10 mL, 10 mL, Intravenous, Q12H, Vaughn Hollingsworth, DO, 10 mL at 07/23/25 213 sodium chloride 0.9 % flush 10 mL, 10 mL, Intravenous, PRN, Vaughn Hollingsworth S, DO sodium zirconium cyclosilicate (LOKELMA) packet 10 g, 10 g, Oral, Once, Ana Reynolds, sodium zirconium cyclosilicate (LOKELMA) packet 10 g, 10 g, Oral, TID, Ana Reynolds, DO [] vancomycin (VANCOCIN) capsule 125 mg, 125 mg, Oral, 4x Daily, 125 mg at 07/09/25 1834 FOLLOWED BY [] vancomycin (VANCOCIN) capsule 125 mg, 125 mg, Oral, TID, 125 mg at 07/17/25 0901 FOLLOWED BY vancomycin (VANCOCIN) capsule 125 mg, 125 mg, Oral, BID, 125 mg at 07/23/25 2117FOLLOWED BY [START ON 07/25/2025] vancomycin (VANCOCIN) capsule 125 mg, 125 mg, Oral, Daily FOLLOWED BY [START ON 08/01/2025] vancomycin (VANCOCIN) capsule 125 mg, 125 mg, Oral, Weekly, Vaughn Hollingsworth S, DO ziprasidone (GEODON) injection 10 mg, 10 mg, Intramuscular, Q6H PRN, Gigi Alcantara MD, 10 mg at 07/24/25 1003 Laboratory Results: Lab Results Component Value Date GLUCOSE 115 (H) 07/24/2025 CALCIUM 8.8 07/24/2025 NA 138 07/24/2025 K 6.3 (C) 07/24/2025 CO2 22.2 07/24/2025 CL 107 07/24/2025 BUN 29.3 (H) 07/24/2025 CREATININE 1.35 (H) 07/24/2025 EGFRIFAFRI >60 05/22/2022 EGFRIFNONA 104 11/06/2021 BCR 21.7 07/24/2025 ANIONGAP 8.8 07/24/2025 Lab Results Component Value Date WBC 6.74 07/20/2025 HGB 9.6 (L) 07/20/2025 HCT 30.3 (L) 07/20/2025 MCV 78.3 (L) 07/20/2025 PLT 228 07/20/2025 Lab Results Component Value Date CHOL 154 06/26/2025 CHOL 148 08/01/2023 CHOL 103 11/24/2021 Lab Results Component Value Date HDL 27 (L) 06/26/2025 HDL 37 (L) 08/01/2023 Lab Results Component Value Date LDL 103 (H) 06/26/2025 LDL 90 08/01/2023 Lab Results Component Value Date TRIG 131 06/26/2025 TRIG 115 08/01/2023 TRIG 79 11/24/2021 Lab Results Component Value Date HGBA1C 7.82 (H) 06/26/2025 Lab Results Component Value Date INR 1.27 (H) 06/26/2025 INR 1.44 (H) 02/02/2024 INR 1.00 07/13/2023 PROTIME 16.7 (H) 06/26/2025 PROTIME 17.7 (H) 02/02/2024 PROTIME 13.3 07/13/2023 Lab Results Component Value Date FOLATE >20.00 06/15/2023 Lab Results Component Value Date [id number] 06/26/2025 Assessment / Plan Brief Patient Summary: Trung Pool is a 70 y.o. male who with known HTN, HLD, CAD s/p stenting, PAD s/p R BKA and prior LLE revascularization and toe amputation, recurrent LLE cellulitis with wound infection, chronic pain, peripheral neuropathy, insulin- dependent T2DM, chronic urinary retention with De Los Santos catheterization, seizure disorder, PNES, obesity and chronic debility recent hospitalization (06/02 to 06/11 for LLE cellulitis) presented to [facility] on 06/25/2025 with complaint of hematuria, left foot dryness, diarrhea and fatigue he was found to have norovirus and enterovirus. Hospital course was complicated by hospital delirium initiated on 07/14. Patient was evaluated by neurology and continued on Zyprexa 10 mg Q12 and Lamictal. Patient has also required IM Geodon and as needed Ativan. Unfortunately patient has continued to remove IVs and medical equipment along with refusing care, agitation and confusion. He is requiring restraints. General neurology was asked to revisit patient as he continues to have waxing and waning hospital delirium. Plan: Hospital delirium Altered mental status/metabolic encephalopathy Seizure disorder with PNES Sleep disturbances Appetite changes/electrolyte imbalances Scheduled p.o. Geodon 20 mg with IM 10 mg option if patient refuses. IM Geodon as needed for extreme agitation QTc 452, repeat EKG in AM. Zyprexa appears to be ineffective for patient's agitation/delirium. Will discontinue. Discontinue Remeron Discontinue Ativan may be making patient's delirium worse. Continue delirium/fall precautions Attempt to remove restraints as tolerated by patient Continue Lamictal 100 mg / 250 mg Thiamine 500 q8 Decrease baclofen 5 mg twice daily Decrease gabapentin 400 mg every 8 Creatinine 1.36 Palliative following appreciate, recommendations goals of care ongoing discussion General Neurology will continue to follow I have discussed the above with the patient, bedside RN, Dr. Reynolds and Dr. Waldrop Time spent with patient: 50 minutes in [id number] evaluation and management of the patient. Copied text in this note has been reviewed and is accurate as of 07/24/25. Shara Bermudez APRN * Ana Reynolds, DO - 07/24/2025 12:29 PM EST Images from the original note were not included. [facility] Medicine Services PROGRESS NOTE Patient Name: Trung Pool : 1955 Date of Admission: 06/25/2025 Primary Care Physician: Gustavo Mehta MD Subjective CC: f/u LLE HPI: Patient resting in bed. Remains agitated, restless, confused. Pulled out IV. In bilateral upper extremity wrist restraints. Objective Vital Signs: Temp: [97.7 ??F (36.5 ??C)-98.7 ??F (37.1 ??C)] 98.7 ??F (37.1 ??C) Heart Rate: [68-99] 81 Resp: [16-19] 18 BP: (104-152)/(55-90) 104/55 Physical Exam: Constitutional: No acute distress, restless, confused, agitated. HENT: NCAT, mucous membranes moist Respiratory: Clear to auscultation bilaterally, respiratory effort normal Cardiovascular: RRR, no murmurs, rubs, or gallops Gastrointestinal: soft, non-distended Musculoskeletal: R AKA, L leg with left foot bandaged Psychiatric: agitated, confused Neurologic: patient in bilateral UE restraints, disoriented, agitated, restless, unable to reliablyanswer orientation questions. Skin: No rashes Results Reviewed: LAB RESULTS: Lab 07/20/25 0508 WBC 6.74 HEMOGLOBIN 9.6* HEMATOCRIT 30.3* PLATELETS 228 MCV 78.3* Lab 07/24/25 0403 07/23/25 0442 07/20/25 0508 07/19/25 0835 07/18/25 0337 SODIUM 138 137 136 -- 137 POTASSIUM 6.3* 5.8* 5.0 -- 5.2 CHLORIDE 107 105 107 -- 108* CO2 22.2 21.8* 19.5* -- 21.4* ANION GAP 8.8 10.2 9.5 -- 7.6 BUN 29.3* 20.3 22.6 -- 22.5 CREATININE 1.35* 0.94 0.81 -- 0.82 EGFR 56.1* 86.7 94.3 -- 93.9 GLUCOSE 115* 104* 90 -- 148* CALCIUM 8.8 9.3 8.7 -- 8.6 MAGNESIUM -- -- -- 1.9 2.1 Brief Urine Lab Results (Last result in the past 365 days) Color Clarity Blood Leuk Est Nitrite Protein CREAT Urine HCG 07/14/2552 Yellow Clear Trace Moderate (2+) Negative 30 mg/dL (1+) Microbiology Results Abnormal Procedure Component Value - Date/Time Urine Culture - Urine, Indwelling Urethral Catheter [[id number]] (Abnormal) Collected: 07/14/2552 Lab Status: Final result Specimen: Urine from Indwelling Urethral Catheter Updated: 07/15/25 1329 Urine Culture Yeast isolated Narrative: No further workup for yeast Colonization of the urinary tract without infection is common. Treatment is discouraged unless the patient is symptomatic, , or undergoing an invasive urologic procedure. Urine Culture - Urine, Indwelling Urethral Catheter [[id number]] (Abnormal) (Susceptibility) Collected: 06/25/252000 Lab Status: Final result Specimen: Urine from Indwelling Urethral Catheter Updated: 06/30/25 1001 Urine Culture >100,000 CFU/mL Proteus mirabilis Narrative: Colonization of the urinary tract without infection is common. Treatment is discouraged unless the patient is symptomatic, , or undergoing an invasive urologic procedure. Susceptibility Proteus mirabilis MURRAY Amoxicillin + Clavulanate Susceptible Ampicillin Resistant Ampicillin + Sulbactam Intermediate Cefazolin (Urine) Resistant Cefepime Resistant Ceftazidime Susceptible Ceftriaxone Resistant Cefuroxime axetil Resistant Ciprofloxacin Resistant Gentamicin Susceptible Levofloxacin Resistant Nitrofurantoin Resistant Piperacillin + Tazobactam Susceptible Trimethoprim + Sulfamethoxazole Resistant Blood Culture - Blood, Hand, Right [[id number]] (Abnormal) (Susceptibility) Collected: 06/25/252029 Lab Status: Edited Result - FINAL Specimen: Blood from Hand, Right Updated: 06/29/25 0713 Blood Culture Enterococcus faecium Comment: Infectious disease consultation is highly recommended. Isolated from Anaerobic Bottle Gram Stain Anaerobic Bottle Gram positive cocci in chains Narrative: Less than seven (7) mL's of blood was collected. Insufficient quantity may yield false negative results. requested linezolid & daptomycin 06/28/25 Susceptibility Enterococcus faecium MURRAY Method Not Specified Ampicillin Susceptible Daptomycin Susceptible dose dependent Gentamicin High Level Synergy Susceptible Linezolid Susceptible (C) [1] Vancomycin Susceptible [1] Appended report. These results have been appended to a previously final verified report. Wound Culture - Swab, Foot, Left [[id number]] (Abnormal) (Susceptibility) Collected: 06/25/25 1818 Lab Status: Final result Specimen: Swab from Foot, Left Updated: 06/29/25 0645 Wound Culture Heavy growth (4+) Staphylococcus aureus, MRSA Comment: Methicillin resistant Staphylococcus aureus, Patient may be an isolation risk. Moderate growth (3+) Morganella morganii ssp morganii Moderate growth (3+) Proteus mirabilis ESBL Comment: Consider infectious disease consult. Susceptibility results may not correlate to clinical outcomes. Gram Stain Few (2+) WBCs seen Few (2+) Gram positive cocci in pairs, chains and clusters Few (2+) Gram negative bacilli Susceptibility Staphylococcus aureus, MRSA MURRAY Clindamycin Susceptible Erythromycin Resistant Oxacillin Resistant Rifampin Susceptible Tetracycline Susceptible Trimethoprim + Sulfamethoxazole Resistant Vancomycin Susceptible Susceptibility Morganella morganii ssp morganii MURRAY Method Not Specified Amoxicillin + Clavulanate Resistant Ampicillin Resistant Ampicillin + Sulbactam Resistant Cefazolin (Non Urine) Resistant Cefepime Susceptible Cefotaxime Susceptible Ceftazidime Susceptible Cefuroxime axetil Resistant Ciprofloxacin Resistant Gentamicin Susceptible Levofloxacin Resistant Piperacillin + Tazobactam Susceptible Tetracycline Susceptible Trimethoprim + Sulfamethoxazole Resistant Susceptibility Proteus mirabilis ESBL MURRAY Ciprofloxacin Resistant Ertapenem Susceptible Levofloxacin Resistant Meropenem Susceptible Tetracycline Resistant Trimethoprim + Sulfamethoxazole Resistant Susceptibility Comments Morganella morganii ssp morganii Cefotaxime susceptibility can be used as a surrogate for ceftriaxone susceptibility Proteus mirabilis ESBL With the exception of urinary-sourced infections, aminoglycosides should not be used as monotherapy. Blood Culture ID, PCR - Blood, Hand, Right [[id number]] (Abnormal) Collected: 06/25/25 2030 Lab Status: Final result Specimen: Blood from Hand, Right Updated: 06/26/252101 BCID, PCR Enterococcus faecium. Zee/B (vancomycin resistance gene) not detected. Identification byBCID2 PCR. BOTTLE TYPE Anaerobic Bottle Narrative: Infectious disease consultation is highly recommended to rule out distant foci of infection. MRSA Screen, PCR (Inpatient) - Swab, Nares [[id number]] (Abnormal) Collected: 06/26/25 0046 Lab Status: Final result Specimen: Swab from Nares Updated: 06/26/25 0850 MRSA PCR Positive Narrative: The negative predictive value of this diagnostic test is high and should only be used to consider de-escalating anti-MRSA therapy. A positive result may indicate colonization with MRSA and must be correlated clinically. Gastrointestinal Panel, PCR - Stool, Per Rectum [[id number]] (Abnormal) Collected: 06/26/2545 Lab Status: Final result Specimen: Stool from Per Rectum Updated: 06/26/25849 Campylobacter Not Detected Plesiomonas shigelloides Not Detected Salmonella Not Detected Vibrio Not Detected Vibrio cholerae Not Detected Yersinia enterocolitica Not Detected Enteroaggregative E. coli (EAEC) Not Detected Enteropathogenic E. coli (EPEC) Not Detected Enterotoxigenic E. coli (ETEC) lt/st Not Detected Shiga-like toxin-producing E. coli (STEC) stx1/stx2 Not Detected Shigella/Enteroinvasive E. coli (EIEC) Not Detected Cryptosporidium Not Detected Cyclospora cayetanensis Not Detected Entamoeba histolytica Not Detected Giardia lamblia Not Detected Adenovirus F40/41 Not Detected Astrovirus Not Detected Norovirus GI/GII Detected Comment: If a positive Norovirus result is inconsistent with clinical presentation, the positive Norovirus result should be confirmed using another method. Rotavirus A Not Detected Sapovirus (I, II, IV or V) Not Detected Clostridioides difficile Toxin - Stool, Per Rectum [[id number]] (Abnormal) Collected: 06/26/2545 Lab Status: Final result Specimen: Stool from Per Rectum Updated: 06/26/25754 Narrative: The following orders were created for panel order Clostridioides difficile Toxin - Stool, Per Rectum. Procedure Abnormality Status --------- ------ Clostridioides difficile...[[id number]] Abnormal Final result Please view results for these tests on the individual orders. Clostridioides difficile Toxin, PCR - Stool, Per Rectum [[id number]] (Abnormal) Collected: 06/26/2545 Lab Status: Final result Specimen: Stool from Per Rectum Updated: 06/26/25754 Toxigenic C. difficile by PCR Detected Narrative: DNA from a toxigenic strain of C.difficile has been detected. No radiology results from the last 24 hrs Results for orders placed during the hospital encounter of 08/31/24 Adult Transthoracic Echo Complete W/ Cont if Necessary Per Protocol 09/12/2024 4:10 PM Interpretation Summary Left ventricular systolic function is normal. Calculated left ventricular EF = 52.5% There is a trivial pericardial effusion. The aortic valve exhibits sclerosis. Mitral annular calcification is present. Current medications: Scheduled Meds:acetaminophen, 1,000 mg, Oral, Q8H apixaban, 5 mg, Oral, BID vitamin C, 500 mg, Oral, Daily baclofen, 10 mg, Oral, Q12H carvedilol, 3.125 mg, Oral, BID With Meals clopidogrel, 75 mg, Oral, Daily doxycycline, 100 mg, Intravenous, Q12H famotidine, 20 mg, Oral, BID AC finasteride, 5 mg, Oral, Daily folic acid, 1 mg, Oral, Daily gabapentin, 600 mg, Oral, Q8H insulin glargine, 30 Units, Subcutaneous, Nightly lamoTRIgine, 100 mg, Oral, Daily lamoTRIgine, 250 mg, Oral, Nightly meropenem, 500 mg, Intravenous, Q8H methenamine, 1 g, Oral, BID With Meals mirtazapine, 15 mg, Oral, Nightly multivitamin with minerals, 1 tablet, Oral, Daily OLANZapine, 10 mg, Intramuscular, Nightly Or OLANZapine zydis, 10 mg, Oral, Nightly OLANZapine, 10 mg, Oral, BID oxyCODONE, 15 mg, Oral, Q6H sodium chloride, 10 mL, Intravenous, Q12H sodium zirconium cyclosilicate, 10 g, Oral, Once sodium zirconium cyclosilicate, 10 g, Oral, TID vancomycin, 125 mg, Oral, BID Followed by [START ON 07/25/2025] vancomycin, 125 mg, Oral, Daily Followed by [START ON 08/01/2025] vancomycin, 125 mg, Oral, Weekly Continuous Infusions: PRN Meds:. aluminum-magnesium hydroxide-simethicone benzonatate senna-docusate sodium AND polyethylene glycol AND bisacodyl AND bisacodyl Calcium Replacement - Follow Nurse / BPA Driven Protocol dextrose dextrose diphenhydrAMINE-zinc acetate glucagon (human recombinant) influenza vaccine ipratropium-albuterol LORazepam Magnesium Cardiology Dose Replacement - Follow Nurse / BPA Driven Protocol [DISCONTINUED] Morphine AND naloxone ondansetron oxyCODONE Phosphorus Replacement - Follow Nurse / BPA Driven Protocol Potassium Replacement - Follow Nurse / BPA Driven Protocol Insert Peripheral IV AND sodium chloride sodium chloride ziprasidone Assessment & Plan Active Hospital Problems Diagnosis POA Wound infection [T14.8XXA, L08.9] Unknown Acute UTI (urinary tract infection) [N39.0] Yes Diarrhea of presumed infectious origin [R19.7] Yes Acute on chronic blood loss anemia [D62] Yes BPH without obstruction/lower urinary tract symptoms [N40.0] Yes GERD without esophagitis [K21.9] Yes Bilateral inguinal hernia [K40.20] Yes Gastroenteritis due to norovirus [A08.11] Yes Cellulitis [L03.90] Yes Type 2 diabetes mellitus, with long-term current use of insulin [E11.9, Z79.4] Not Applicable PAD (peripheral artery disease) [I73.9] Yes Coronary artery disease involving [place] coronary artery of [place] heart without angina pectoris [I25.10] Yes Seizure disorder [G40.909] Yes Primary hypertension [I10] Yes Resolved Hospital Problems No resolved problems to display. Brief Hospital Course to date: Trung Pool is a 70yoM with PMH significant for HTN, HLD, CAD s/p stenting, PAD s/p R BKA and prior LLE revascularization and toe amputations, recurrent LLE cellulitis / wound infections, chronicpain / peripheral neuropathy, insulin- dependent DMII, chronic urinary retention with De Los Santos catheter, seizure disorder with history of pseudoseizures, obesity and chronic debility. Last admitted to [facility] 06/02-06/11/25 for LLE cellulitis with failure of outpatient treatment. Wound cultures grew Proteus and concern for ESBL per lab and MRSA. He completed 7 days of IV abx prior to DC home. He has declined LLE amputation He returned to [facility] ED on 06/25/25 for evaluation of hematuria, L foot drainage, diarrhea and fatigue. Found to have Norovirus and Enterococcus bacteremia. Hospital course complicated by hospital delirium on 07/14 Hospital-acquired delirium - waxing and waning - Neurology reconsulted given worsening mental status, appreciate recs - continue increased dose of nightly zyprexa, continue IM Geodon q6hrs, patient removed IVs, and wound vac 07/22, refusing care, agitated and confused. Add IM ativan PRN as well - bilateral UE restrains in place - metal status continues to be a barrier to his care LLE Wound Infection w/Cellulitis Severe PAD History of right BKA, LLE revascularization and toe amputation Enterococcus faecium bacteremia - MRI L foot showed edema in the distal first and second metatarsal diaphyses at the resection margins, osteomyelitis not excluded. CT angio left lower extremity revealed moderate focal narrowing at the junction of the SFA and the popliteal artery. 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 - LLE arterial dopplers with abnormal waveforms suggest inflow disease. Moderate 60% stenosis in the left SFA, the left CHIP appears to be occluded filling vis collaterals retrograde - Blood cultures positive for Enterococcus faecium - ID/Dr. Andres following - on meropenem - Vascular surgery consulted - follows with Dr. Marcano. He is s/p LLE excisional debridement and wound VAC application on 07/03/25. Patient continues to adamantly refuse amputation - PT wound care following, patient self removed his wound vac on 07/22, currently PT wound care not planning to replace it - Continue Plavix / Eliquis, however currently refusing oral meds - Appreciate palliative care assistance with pain management and GOC - patient agreeable to placement in SNF for abx, CM following Hyperkalemia - Potassium of 6.2 07/11 - s/p treatment. Entresto held - K climbing again, refusing all medications including lokelma, can treat with insulin/D50 - EKG with no changes Acute CAUTI and hematuria, POA History of BPH Chronic urinary retention with chronic De Los Santos catheter - Urine culture grew Yeast - H&H stable, resumed Eliquis 07/07 - Urology consulted - recommend continue De Los Santos and finasteride. - Needs OP referral to urology at [place] for long-term management Diarrhea Norovirus / C. Diff colonization - GI PCR panel with norovirus, C. difficile toxin is positive but antigen negative suggest colonization - CT imaging suggestive of proctitis - Continue antibiotics as above, ID following Acute on Chronic anemia, possible blood loss - Continue to monitor H&H, stable, resumed eliqius - Transfuse PRBC if hemoglobin <7 Type 2 diabetes Transient hypoglycemia - Previously well-controlled with A1c 7.6 (08/2024), A1c 7.82 - Continue Lantus 30 units QHS Seizure disorder History of pseudoseizures - Continue lamotrigine - Seizure like activity noted upon awaking from procedure on 07/03. Aborted with propofol and versed. My partner discussed with general neurology over the phone. Recommended PRN ativan for now and outpatient follow up with Dr. Anand as seizures are likely 2/2 anesthesia/procedure. S/p EEG. If seizure like activity recurs while inpatient, recommended loading with 1g of Keppra and placing general neurology consult. - No recurrence of pseudoseizure GERD without Esophagitis - PPI Bilateral Inguinal Hernia, incidental finding on CT - CT imaging revealed bilateral inguinal hernias, larger on the left containing a partial loop of sigmoid colon, without proximal dilatation. - General surgery consult; recommend watchful waiting, poor operative candidate for an elective procedure while asymptomatic, and has signed off GOC: - patient continues to have waxing/waning mental status, currently in 2 point restraints, refusing all medications and care, requiring PRNs around the clock for symptom control. Mental status continues to be a huge barrier to care. At this point would likely best be served by hospice evaluation, however unable to make this decision on his own. Have attempted to call his sister and only listed contact, Zhane Salazar several times without success. Discussed plan with Talisha Resendez APRN for palliative who will also try to reach out. Expected Discharge Location and Transportation: SNF, D. Expected Discharge Expected Discharge Date: 07/23/2025; Expected Discharge Time: VTE Prophylaxis: Pharmacologic VTE prophylaxis orders are present. AM-PAC 6 Clicks Score (PT): 8 (07/24/25 1000) CODE STATUS: Code Status and Medical Interventions: CPR (Attempt to Resuscitate); Full Support Ordered at: 06/25/25 2310 Code Status (Patient has no pulse and is not breathing): CPR (Attempt to Resuscitate) Medical Interventions (Patient has pulse or is breathing): Full Support Level Of Support Discussed With: Patient Ana Reynolds DO 07/24/25 * Duglas Andres MD - 07/24/2025 7:53 AM EST Trung Martinez [facility] 1955 [id number] Evaluating Physician: Duglas Andres MD Chief Complaint: diarrhea, hematuria,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 Bermudez MD 250 mg at 07/01/25 2144 Magnesium Cardiology Dose Replacement - Follow Nurse / BPA Driven Protocol Not Applicable PRN Amanda Bermudez MD meropenem (MERREM) 500 mg in sodium chloride 0.9 % 100 mL MBP 500 mg Intravenous Q6H Duglas Andres MD 500 mg at 07/02/25 0359 methenamine (HIPREX) tablet 1 g 1 g Oral BID With Meals Amanda Bermudez MD 1 g at 07/01/25 1713 multivitamin with minerals 1 tablet 1 tablet Oral Daily Amanda Bermudez MD 1 tablet at 07/01/25 0830 naloxone (NARCAN) injection 0.4 mg 0.4 mg Intravenous Q5 Min PRN Amanda Bermudez MD nitroglycerin (NITROSTAT) SL tablet 0.4 mg 0.4 mg Sublingual Q5 Min PRN Amanda Bermudez MD ondansetron (ZOFRAN) injection 4 mg 4 mg Intravenous Q6H PRN Amanda Bermudez MD 4 mg at 646 oxyCODONE-acetaminophen (PERCOCET) 10-325 MG per tablet 1 tablet 1 tablet Oral Q6H PRN Kris Boston DO 1 tablet at 07/02/25 0125 Pharmacy to dose vancomycin Not Applicable Continuous PRN Duglas Andres MD Phosphorus Replacement - Follow Nurse / BPA Driven Protocol Not Applicable PRN Amanda Bermudez MD Potassium Replacement - Follow Nurse / BPA Driven Protocol Not Applicable PRN Amanda Bermudez MD sacubitril-valsartan (ENTRESTO) 24-26 MG tablet 1 tablet 1 tablet Oral BID Amanda Bermudez MD 1 tablet at 07/01/25 2144 sodium chloride 0.9 % flush 10 mL 10 mL Intravenous PRN Ally Jeffers V, DIABETES NURSE sodium chloride 0.9 % flush 10 mL 10 mL Intravenous Q12H Amanda Bemrudez MD 10 mL at 07/01/25 0832 sodium chloride 0.9 % flush 10 mL 10 mL Intravenous PRN Amanda Bermudez MD sodium chloride 0.9 % flush 10 mL 10 mL Intravenous Q12H Duglas Andres MD 10 mL at 07/01/25 2145 sodium chloride 0.9 % flush 10 mL 10 mL Intravenous PRN Duglas Andres MD sodium chloride 0.9 % flush 20 mL 20 mL Intravenous PRN Duglas Andres MD sodium chloride 0.9 % infusion 40 mL 40 mL Intravenous PRN Duglas Andres MD vancomycin (VANCOCIN) 1,000 mg in sodium chloride 0.9 % 250 mL IVPB-VTB 1,000 mg Intravenous Q12H Siobhan Osmany Tierney, [facility] 250 mL/hr at 07/01/252142 1,000 mg at 07/01/252142 vancomycin (VANCOCIN) capsule 125 mg 125 mg Oral 4x Daily Duglas Andres MD 125 mg at Followed by [START ON 07/10/2025] vancomycin (VANCOCIN) capsule 125 mg 125 mg Oral TID Duglas Andres MD Followed by [START ON 07/17/2025] vancomycin (VANCOCIN) capsule 125 mg 125 mg Oral BID Duglas Andres MD Followed by [START ON 07/25/2025] vancomycin (VANCOCIN) capsule 125 mg 125 mg Oral Daily Duglas Andres MD Followed by [START ON 08/01/2025] vancomycin (VANCOCIN) capsule 125 mg 125 mg Oral Weekly Duglas Andres MD * Cuco Posada MD - 07/23/2025 3:59 PM EST Neurology Note Patient: Trung Pool DATE OF : 1955 REFERRING PHYSICIAN: Dr. Reynolds CHIEF COMPLAINT: AMS HISTORY OF PRESENT ILLNESS: The patient was doing well until this pm when became acutely agitated, pulled out his IV, was swearing and flinging blood at the staff, received Geodon 10 mg IM, now is calm. Past Medical History: Past Medical History: Diagnosis Date Anemia Cellulitis Diabetes mellitus Frequent falls History of DVT (deep vein thrombosis) Hyperlipidemia Hypertension Migraines Myocardial infarction Peripheral neuropathy Pneumonia Spinal stenosis Wears dentures FULL Wears glasses Past Surgical History: Past Surgical History: Procedure Laterality Date ABOVE KNEE AMPUTATION Right AMPUTATION DIGIT Left 01/28/2024 Procedure: SECOND AND THIRD TOE AMPUTATION LEFT; Surgeon: Cecil Buenrostro Jr., MD; Location: [facility]; Service: Orthopedics; Laterality: Left; ANTERIOR CERVICAL DISCECTOMY W/ FUSION Bilateral 07/17/2020 Procedure: Cervical discectomy anterior with fusion C3-4; Surgeon: yTree Tan MD; Location:[facility]; Service: Neurosurgery; Laterality: Bilateral; AORTOGRAM N/A 01/26/2024 Procedure: ABDOMINAL AORTIC ANGIOGRAM, LLE ANGIOGRAM, LEFT ANTERIOR TIBIAL ATHERECTOMY, LEFT ANTERIOR TIBIAL ANGIOPLASTY; Surgeon: Archie Olvera MD; Location: [facility]; Service: Vascular; Laterality: N/A; CONTRAST: 50 ML, FT: 2 MIN 54 SEC, DOSE: 66 MGY. AORTOGRAM Left 07/03/2025 Procedure: ARTERIOGRAM LOWER EXTREMITY; Surgeon: Vaughn Hollingsworth DO; Location: [facility]; Service: Vascular; Laterality: Left; FT-6MINS 24SEC 140 MGY CONTRAST -15ML BACK SURGERY FOR DISC HERNIATION CARDIAC CATHETERIZATION CARDIAC CATHETERIZATION N/A 09/04/2024 Procedure: Peripheral angiography - Left lower extremity angio - Right femoral access; Surgeon: Jared Marcano MD; Location: [facility]; Service: Peripheral Vascular; Laterality: N/A; CORONARY ANGIOPLASTY WITH STENT PLACEMENT stent x 1 INCISION AND DRAINAGE FOOT Left 06/17/2023 Procedure: LEFT FOOT DEBRIDEMENT WOUND VACUUM ASSISTED CLOSURE; Surgeon: Cecil Buenrostro Jr., MD;Location: [facility] OR; Service: Orthopedics; Laterality: Left; INCISION AND DRAINAGE LEG Left 07/25/2023 Procedure: INCISION AND DRAINAGE HEEL, WOUND VAC; Surgeon: Cecil Buenrostro Jr., MD; Location: [facility]; Service: Orthopedics; Laterality: Left; INCISION AND DRAINAGE LEG Left 07/03/2025 Procedure: DEBRIDEMENT WOUND, PLACEMENT OF WOUND VAC; Surgeon: Vaughn Hollingsworth DO; Location: [facility]; Service: Vascular; Laterality: Left; INTERVENTIONAL RADIOLOGY PROCEDURE N/A 05/02/2019 Procedure: IVC FILTER PLACEMENT; Surgeon: Pedro Zapien MD; Location: [facility]; Service: Interventional Radiology INTERVENTIONAL RADIOLOGY PROCEDURE Left 09/07/2024 Procedure: LEFT peroneal arteriovenous fistula embolization - Right femoral access; Surgeon: Jared Marcano MD; Location: [facility] LOCATION; Service: Cardiovascular; Laterality: Left; Please coordinate with Gautam Patel ([facility]) [phone] who will bring coils LUMBAR DISCECTOMY N/A 05/03/2019 Procedure: THORACIC LAMINECTOMY T11-12; Surgeon: Tyree Tan MD; Location: [facility]; Service: Neurosurgery Social History: Social History Socioeconomic History Marital status: Single Tobacco Use Smoking status: Never Passive exposure: Never Smokeless tobacco: Never Vaping Use Vaping status: Never Used Substance and Sexual Activity Alcohol use: Never Drug use: Yes Types: Marijuana Sexual activity: Defer Family History: Family History Problem Relation Name Age of Onset Alcohol abuse Father Medications Prior to Admission: Prior to Admission medications Medication Sig Start Date End Date Taking? Authorizing Provider apixaban (ELIQUIS) 5 MG tablet tablet Take 1 tablet by mouth 2 (Two) Times a Day. Yes Dario Tatum MD baclofen (LIORESAL) 10 MG tablet Take 1 tablet by mouth Every 12 (Twelve) Hours. 08/14/23 Yes Carter Mendieta APRN carvedilol (COREG) 3.125 MG tablet Take 1 tablet by mouth 2 (Two) Times a Day With Meals. 09/17/24 Yes Ju Gonzalez APRN clopidogrel (PLAVIX) 75 MG tablet Take 1 tablet by mouth Daily. 02/05/24 Yes Alondra Lanza MD finasteride (PROSCAR) 5 MG tablet Take 1 tablet by mouth Daily. 09/17/24 Yes Ju Gonzlaez APRN folic acid (FOLVITE) 1 MG tablet Take 1 tablet by mouth Daily. Yes Dario Tatum MD furosemide (LASIX) 40 MG tablet Take 1 tablet by mouth Daily. 04/03/20 Yes Dario Tatum MD gabapentin (NEURONTIN) 100 MG capsule Take 2 capsules by mouth 3 (Three) Times a Day As Needed. YesDario Tatum MD Insulin Glargine (BASAGLAR KWIKPEN) 100 UNIT/ML injection pen Inject 56 Units under the skin into the appropriate area as directed Every Night. For 30 days 01/10/24 Yes Dario Tatum MD lamoTRIgine (LaMICtal) 100 MG tablet Take 1 tablet by mouth 2 (Two) Times a Day. 100mg AM + 250mg PM 07/15/23 Yes Chinyere Hensley APRN lamoTRIgine (LaMICtal) 150 MG tablet Take 1 tablet by mouth Every Night. Patient takes 100 mg in AM, 250 mg in PM Yes Dario Tatum MD methenamine (HIPREX) 1 g tablet Take 1 tablet by mouth 2 (Two) Times a Day With Meals. Yes Dario Tatum MD multivitamin with minerals tablet tablet Take 1 tablet by mouth Daily. Yes Dario Tatum MD ondansetron (ZOFRAN) 4 MG tablet Take 1 tablet by mouth Every 8 (Eight) Hours As Needed for Nausea or Vomiting. Yes Dario Tatum MD pantoprazole (PROTONIX) 40 MG EC tablet Take 1 tablet by mouth 2 (Two) Times a Day. Yes Dario Tatum MD sacubitril-valsartan (ENTRESTO) 24-26 MG tablet Take 1 tablet by mouth 2 (Two) Times a Day. Yes Dario Tatum MD vitamin C (ASCORBIC ACID) 250 MG tablet Take 2 tablets by mouth Daily. Yes Dario Tatum MD Allergies: Keppra [levetiracetam], Bupropion, Codeine, Hydrocodone, and Ketorolac tromethamine Review of system Review of Systems Unable to perform ROS: Mental status change Vitals: 07/23/25 1103 BP: 117/55 Pulse: 71 Resp: 18 Temp: 98.3 ??F (36.8 ??C) SpO2: 94% Physical exam Physical Exam Cardiovascular: Rate and Rhythm: Normal rate and regular rhythm. Pulmonary: Effort: Pulmonary effort is normal. Neurological: Mental Status: He is alert. Comments: Calm, somewhat inattentive, alerts to voice, oriented to hospital and June, speech is mostly clear, trails off into incoherent, no facial droop, moves larms well. Lab Results Component Value Date WBC 6.74 07/20/2025 HGB 9.6 (L) 07/20/2025 HCT 30.3 (L) 07/20/2025 MCV 78.3 (L) 07/20/2025 PLT 228 07/20/2025 Lab Results Component Value Date GLUCOSE 104 (H) 07/23/2025 BUN 20.3 07/23/2025 CREATININE 0.94 07/23/2025 EGFRIFNONA 104 11/06/2021 EGFRIFAFRI >60 05/22/2022 BCR 21.6 07/23/2025 CO2 21.8 (L) 07/23/2025 CALCIUM 9.3 07/23/2025 ALBUMIN 3.0 (L) 06/26/2025 AST 15 06/26/2025 ALT 13 06/26/2025 During this visit the following were done: Labs Reviewed [x] Labs Ordered [] Radiology Reports Reviewed [] Radiology Ordered [] EKG, echo, and/or stress test reviewed [] EEG results reviewed [] EEG reviewed and interpreted per myself [] Discussed case with neurointerventionalist or neuroradiologist [] Referring Provider Records Reviewed [] ER Records Reviewed [] Hospital Records Reviewed [] History Obtained From Family [] Radiological images view and Interpreted per myself [] Case Discussed with referring provider [] Decision to obtain and request outside records [] Assessment and Plan TME/hospital delirium, fluctuating. Recurrent LE cellulitis with sepsis. H/O diabetic PN and PNES. CT head negative for acute changes on 07/03. - Change Zyprexa to 10 mg 12 po or IM scheduled. - Continue Lamictal. Call for questions, will see prn. Thanks. * Ana Reynolds DO - 07/23/2025 12:24 PM EST Images from the original note were not included. [facility] Medicine Services PROGRESS NOTE Patient Name: Trung Pool : 1955 Date of Admission: 06/25/2025 Primary Care Physician: Gustavo Mehta MD Subjective CC: f/u LLE HPI: Patient more alert and conversant today. Coherence has improved. States he does not remember pulling out his IV or his wound vac. Refusing to have IV placed. Initially told me he was at a [employer], but then redirected and said he was at the hospital. Objective Vital Signs: Temp: [96.8 ??F (36 ??C)-98.3 ??F (36.8 ??C)] 98.3 ??F (36.8 ??C) Heart Rate: [71-83] 71 Resp: [18] 18 BP: (98-156)/(55-83) 117/55 Physical Exam: Constitutional: No acute distress, awake, sitting up in bed eating breakfast HENT: NCAT, mucous membranes moist Respiratory: Clear to auscultation bilaterally, respiratory effort normal Cardiovascular: RRR, no murmurs, rubs, or gallops Gastrointestinal: soft, non-distended Musculoskeletal: R AKA, L leg with left foot, wound vac has now been removed Psychiatric: pleasant, cooperative Neurologic: patient is more alert this morning, he is able to tell me he is at [facility] on [facility] and that the year is 2024 Skin: No rashes Results Reviewed: LAB RESULTS: Lab 07/20/25 0508 07/17/25 0548 WBC 6.74 7.10 HEMOGLOBIN 9.6* 9.3* HEMATOCRIT 30.3* 31.1* PLATELETS 228 211 MCV 78.3* 79.1 Lab 07/23/25 0442 07/20/25 0508 07/19/25 0835 07/18/25 0337 07/17/2548 SODIUM 137 136 -- 137 139 POTASSIUM 5.8* 5.0 -- 5.2 5.2 CHLORIDE 105 107 -- 108* 109* CO2 21.8* 19.5* -- 21.4* 19.1* ANION GAP 10.2 9.5 -- 7.6 10.9 BUN 20.3 22.6 -- 22.5 21.8 CREATININE 0.94 0.81 -- 0.82 0.89 EGFR 86.7 94.3 -- 93.9 91.6 GLUCOSE 104* 90 -- 148* 132* CALCIUM 9.3 8.7 -- 8.6 8.8 MAGNESIUM -- -- 1.9 2.1 1.9 Brief Urine Lab Results (Last result in the past 365 days) Color Clarity Blood Leuk Est Nitrite Protein CREAT Urine HCG 07/14/2552 Yellow Clear Trace Moderate (2+) Negative 30 mg/dL (1+) Microbiology Results Abnormal Procedure Component Value - Date/Time Urine Culture - Urine, Indwelling Urethral Catheter [[id number]] (Abnormal) Collected: 07/14/2552 Lab Status: Final result Specimen: Urine from Indwelling Urethral Catheter Updated: 07/15/251328 Urine Culture Yeast isolated Narrative: No further workup for yeast Colonization of the urinary tract without infection is common. Treatment is discouraged unless the patient is symptomatic, , or undergoing an invasive urologic procedure. Urine Culture - Urine, Indwelling Urethral Catheter [[id number]] (Abnormal) (Susceptibility) Collected: 06/25/252000 Lab Status: Final result Specimen: Urine from Indwelling Urethral Catheter Updated: 06/30/25 1001 Urine Culture >100,000 CFU/mL Proteus mirabilis Narrative: Colonization of the urinary tract without infection is common. Treatment is discouraged unless the patient is symptomatic, , or undergoing an invasive urologic procedure. Susceptibility Proteus mirabilis MURRAY Amoxicillin + Clavulanate Susceptible Ampicillin Resistant Ampicillin + Sulbactam Intermediate Cefazolin (Urine) Resistant Cefepime Resistant Ceftazidime Susceptible Ceftriaxone Resistant Cefuroxime axetil Resistant Ciprofloxacin Resistant Gentamicin Susceptible Levofloxacin Resistant Nitrofurantoin Resistant Piperacillin + Tazobactam Susceptible Trimethoprim + Sulfamethoxazole Resistant Blood Culture - Blood, Hand, Right [[id number]] (Abnormal) (Susceptibility) Collected: 06/25/252029 Lab Status: Edited Result - FINAL Specimen: Blood from Hand, Right Updated: 06/29/25 0713 Blood Culture Enterococcus faecium Comment: Infectious disease consultation is highly recommended. Isolated from Anaerobic Bottle Gram Stain Anaerobic Bottle Gram positive cocci in chains Narrative: Less than seven (7) mL's of blood was collected. Insufficient quantity may yield false negative results. requested linezolid & daptomycin 06/28/25 Susceptibility Enterococcus faecium MURRAY Method Not Specified Ampicillin Susceptible Daptomycin Susceptible dose dependent Gentamicin High Level Synergy Susceptible Linezolid Susceptible (C) [1] Vancomycin Susceptible [1] Appended report. These results have been appended to a previously final verified report. Wound Culture - Swab, Foot, Left [[id number]] (Abnormal) (Susceptibility) Collected: 06/25/25 1818 Lab Status: Final result Specimen: Swab from Foot, Left Updated: 06/29/25 0645 Wound Culture Heavy growth (4+) Staphylococcus aureus, MRSA Comment: Methicillin resistant Staphylococcus aureus, Patient may be an isolation risk. Moderate growth (3+) Morganella morganii ssp morganii Moderate growth (3+) Proteus mirabilis ESBL Comment: Consider infectious disease consult. Susceptibility results may not correlate to clinical outcomes. Gram Stain Few (2+) WBCs seen Few (2+) Gram positive cocci in pairs, chains and clusters Few (2+) Gram negative bacilli Susceptibility Staphylococcus aureus, MRSA MURRAY Clindamycin Susceptible Erythromycin Resistant Oxacillin Resistant Rifampin Susceptible Tetracycline Susceptible Trimethoprim + Sulfamethoxazole Resistant Vancomycin Susceptible Susceptibility Morganella morganii ssp morganii MURRAY Method Not Specified Amoxicillin + Clavulanate Resistant Ampicillin Resistant Ampicillin + Sulbactam Resistant Cefazolin (Non Urine) Resistant Cefepime Susceptible Cefotaxime Susceptible Ceftazidime Susceptible Cefuroxime axetil Resistant Ciprofloxacin Resistant Gentamicin Susceptible Levofloxacin Resistant Piperacillin + Tazobactam Susceptible Tetracycline Susceptible Trimethoprim + Sulfamethoxazole Resistant Susceptibility Proteus mirabilis ESBL MURRAY Ciprofloxacin Resistant Ertapenem Susceptible Levofloxacin Resistant Meropenem Susceptible Tetracycline Resistant Trimethoprim + Sulfamethoxazole Resistant Susceptibility Comments Morganella morganii ssp morganii Cefotaxime susceptibility can be used as a surrogate for ceftriaxone susceptibility Proteus mirabilis ESBL With the exception of urinary-sourced infections, aminoglycosides should not be used as monotherapy. Blood Culture ID, PCR - Blood, Hand, Right [[id number]] (Abnormal) Collected: 06/25/252029 Lab Status: Final result Specimen: Blood from Hand, Right Updated: 06/26/252101 BCID, PCR Enterococcus faecium. Zee/B (vancomycin resistance gene) not detected. Identification byBCID2 PCR. BOTTLE TYPE Anaerobic Bottle Narrative: Infectious disease consultation is highly recommended to rule out distant foci of infection. MRSA Screen, PCR (Inpatient) - Swab, Nares [[id number]] (Abnormal) Collected: 06/26/2545 Lab Status: Final result Specimen: Swab from Nares Updated: 06/26/25 0850 MRSA PCR Positive Narrative: The negative predictive value of this diagnostic test is high and should only be used to consider de-escalating anti-MRSA therapy. A positive result may indicate colonization with MRSA and must be correlated clinically. Gastrointestinal Panel, PCR - Stool, Per Rectum [[id number]] (Abnormal) Collected: 06/26/2545 Lab Status: Final result Specimen: Stool from Per Rectum Updated: 06/26/25 0850 Campylobacter Not Detected Plesiomonas shigelloides Not Detected Salmonella Not Detected Vibrio Not Detected Vibrio cholerae Not Detected Yersinia enterocolitica Not Detected Enteroaggregative E. coli (EAEC) Not Detected Enteropathogenic E. coli (EPEC) Not Detected Enterotoxigenic E. coli (ETEC) lt/st Not Detected Shiga-like toxin-producing E. coli (STEC) stx1/stx2 Not Detected Shigella/Enteroinvasive E. coli (EIEC) Not Detected Cryptosporidium Not Detected Cyclospora cayetanensis Not Detected Entamoeba histolytica Not Detected Giardia lamblia Not Detected Adenovirus F40/41 Not Detected Astrovirus Not Detected Norovirus GI/GII Detected Comment: If a positive Norovirus result is inconsistent with clinical presentation, the positive Norovirus result should be confirmed using another method. Rotavirus A Not Detected Sapovirus (I, II, IV or V) Not Detected Clostridioides difficile Toxin - Stool, Per Rectum [[id number]] (Abnormal) Collected: 06/26/2545 Lab Status: Final result Specimen: Stool from Per Rectum Updated: 06/26/25754 Narrative: The following orders were created for panel order Clostridioides difficile Toxin - Stool, Per Rectum. Procedure Abnormality Status --------- ------ Clostridioides difficile...[[id number]] Abnormal Final result Please view results for these tests on the individual orders. Clostridioides difficile Toxin, PCR - Stool, Per Rectum [[id number]] (Abnormal) Collected: 06/26/2545 Lab Status: Final result Specimen: Stool from Per Rectum Updated: 06/26/25754 Toxigenic C. difficile by PCR Detected Narrative: DNA from a toxigenic strain of C.difficile has been detected. No radiology results from the last 24 hrs Results for orders placed during the hospital encounter of 08/31/24 Adult Transthoracic Echo Complete W/ Cont if Necessary Per Protocol 09/12/2024 4:10 PM Interpretation Summary Left ventricular systolic function is normal. Calculated left ventricular EF = 52.5% There is a trivial pericardial effusion. The aortic valve exhibits sclerosis. Mitral annular calcification is present. Current medications: Scheduled Meds:acetaminophen, 1,000 mg, Oral, Q8H apixaban, 5 mg, Oral, BID vitamin C, 500 mg, Oral, Daily baclofen, 10 mg, Oral, Q12H carvedilol, 3.125 mg, Oral, BID With Meals clopidogrel, 75 mg, Oral, Daily famotidine, 20 mg, Oral, BID AC finasteride, 5 mg, Oral, Daily folic acid, 1 mg, Oral, Daily gabapentin, 600 mg, Oral, Q8H insulin glargine, 30 Units, Subcutaneous, Nightly lamoTRIgine, 100 mg, Oral, Daily lamoTRIgine, 250 mg, Oral, Nightly meropenem, 500 mg, Intravenous, Q6H methenamine, 1 g, Oral, BID With Meals micafungin (MYCAMINE) IV, 100 mg, Intravenous, Q24H mirtazapine, 15 mg, Oral, Nightly multivitamin with minerals, 1 tablet, Oral, Daily OLANZapine, 10 mg, Intramuscular, Nightly Or OLANZapine zydis, 10 mg, Oral, Nightly oxyCODONE, 15 mg, Oral, Q6H sodium chloride, 10 mL, Intravenous, Q12H vancomycin, 125 mg, Oral, BID Followed by [START ON 07/25/2025] vancomycin, 125 mg, Oral, Daily Followed by [START ON 08/01/2025] vancomycin, 125 mg, Oral, Weekly vancomycin, 1,250 mg, Intravenous, Q24H Continuous Infusions:Pharmacy to dose vancomycin, PRN Meds:. aluminum-magnesium hydroxide-simethicone benzonatate senna-docusate sodium AND polyethylene glycol AND bisacodyl AND bisacodyl Calcium Replacement - Follow Nurse / BPA Driven Protocol dextrose dextrose diphenhydrAMINE-zinc acetate glucagon (human recombinant) influenza vaccine ipratropium-albuterol LORazepam Magnesium Cardiology Dose Replacement - Follow Nurse / BPA Driven Protocol [DISCONTINUED] Morphine AND naloxone ondansetron oxyCODONE Pharmacy to dose vancomycin Phosphorus Replacement - Follow Nurse / BPA Driven Protocol Potassium Replacement - Follow Nurse / BPA Driven Protocol Insert Peripheral IV AND sodium chloride sodium chloride ziprasidone Assessment & Plan Active Hospital Problems Diagnosis POA Wound infection [T14.8XXA, L08.9] Unknown Acute UTI (urinary tract infection) [N39.0] Yes Diarrhea of presumed infectious origin [R19.7] Yes Acute on chronic blood loss anemia [D62] Yes BPH without obstruction/lower urinary tract symptoms [N40.0] Yes GERD without esophagitis [K21.9] Yes Bilateral inguinal hernia [K40.20] Yes Gastroenteritis due to norovirus [A08.11] Yes Cellulitis [L03.90] Yes Type 2 diabetes mellitus, with long-term current use of insulin [E11.9, Z79.4] Not Applicable PAD (peripheral artery disease) [I73.9] Yes Coronary artery disease involving [place] coronary artery of [place] heart without angina pectoris [I25.10] Yes Seizure disorder [G40.909] Yes Primary hypertension [I10] Yes Resolved Hospital Problems No resolved problems to display. Brief Hospital Course to date: Trung Pool is a 70yoM with PMH significant for HTN, HLD, CAD s/p stenting, PAD s/p R BKA and prior LLE revascularization and toe amputations, recurrent LLE cellulitis / wound infections, chronicpain / peripheral neuropathy, insulin- dependent DMII, chronic urinary retention with De Los Santos catheter, seizure disorder with history of pseudoseizures, obesity and chronic debility. Last admitted to [facility] 06/02-06/11/25 for LLE cellulitis with failure of outpatient treatment. Wound cultures grew Proteus and concern for ESBL per lab and MRSA. He completed 7 days of IV abx prior to DC home. He has declined LLE amputation He returned to [facility] ED on 06/25/25 for evaluation of hematuria, L foot drainage, diarrhea and fatigue. Found to have Norovirus and Enterococcus bacteremia. Hospital course complicated by hospital delirium on 07/14 Hospital-acquired delirium - waxing and waning - Neurology reconsulted given worsening mental status, appreciate recs - continue increased dose of nightly zyprexa, continue IM Geodon q6hrs, patient removed IVs, and wound vac 07/22, refusing care, agitated and confused. Add IM ativan PRN as well - trying to avoid restraints if possible in order to place patient in rehab LLE Wound Infection w/Cellulitis Severe PAD History of right BKA, LLE revascularization and toe amputation Enterococcus faecium bacteremia - MRI L foot showed edema in the distal first and second metatarsal diaphyses at the resection margins, osteomyelitis is not excluded. CT angio left lower extremity revealed moderate focal narrowing at the junction of the SFA and the popliteal artery. 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 - LLE arterial dopplers abnormal waveforms suggest inflow disease. Moderate 60% stenosis in the left SFA, the left CHIP appears to be occluded filling vis collaterals retrograde - Blood cultures positive for Enterococcus faecium - ID following - on meropenem and Vancomycin - Vascular surgery consulted - follows with Dr. Marcano. He is s/p LLE excisional debridement and wound VAC application on 07/03/25. Patient continues to adamantly refuse amputation - PT wound care following, patient self removed his wound vac on 07/22, currently PT wound care not planning to replace it - Continue Plavix / Eliquis - Appreciate palliative care assistance with pain management - patient agreeable to placement in SNF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 Amanda Bermudez MD [Held by provider] apixaban (ELIQUIS) tablet 5 mg 5 mg Oral BID Amanda Bermudez MD ascorbic acid (VITAMIN C) tablet 500 mg 500 mg Oral Daily Amanda Bermudez MD 500 mg at 07/01/25 0830 baclofen (LIORESAL) tablet 10 mg 10 mg Oral Q12H Amanda Bermudez MD 10 mg at 07/01/25 2144 sennosides-docusate (PERICOLACE) 8.6-50 MG per tablet 2 tablet 2 tablet Oral BID PRN Amanda Bermudez MD And polyethylene glycol (MIRALAX) packet 17 g 17 g Oral Daily PRN Amanda Bermudez MD And bisacodyl (DULCOLAX) EC tablet 5 mg 5 mg Oral Daily PRN Amanda Bermudez MD And bisacodyl (DULCOLAX) suppository 10 mg 10 mg Rectal Daily PRN Amanda Bermudez MD Calcium Replacement - Follow Nurse / BPA Driven Protocol Not Applicable PRN Amanda Bermudez MD carvedilol (COREG) tablet 3.125 mg 3.125 mg Oral BID With Meals Amanda Bermudez MD 3.125 mg at 07/01/25 1712 clopidogrel (PLAVIX) tablet 75 mg 75 mg Oral Daily Amanda Bermudez MD 75 mg at 07/01/25 0830 famotidine (PEPCID) tablet 20 mg 20 mg Oral BID Arnoldo Ca PharmD 20 mg at 07/02/25 0649 finasteride (PROSCAR) tablet 5 mg 5 mg Oral Daily Amanda Bermudez MD 5 mg at 07/01/25 0830 folic acid (FOLVITE) tablet 1 mg 1 mg Oral Daily Amanda Bermudez MD 1 mg at 07/01/25 0830 gabapentin (NEURONTIN) capsule 300 mg 300 mg Oral Q8H Milena Jo APRN 300 mg at 07/02/25 0649 heparin (porcine) 5000 UNIT/ML injection 5,000 Units 5,000 Units Subcutaneous Q8H Lupe Albert APRN 5,000 Units at 07/02/25 0649 influenza vac split high-dose (FLUZONE HIGH DOSE) injection 0.5 mL 0.5 mL Intramuscular During Hospitalization Kris Boston DO insulin glargine (LANTUS, SEMGLEE) injection 56 Units 56 Units Subcutaneous Nightly Amanda Bermudez MD 56 Units at 07/01/25 2145 ipratropium-albuterol (DUO-NEB) nebulizer solution 3 mL 3 mL Nebulization Q6H PRN Amanda Bermudez MD lamoTRIgine (LaMICtal) tablet 100 mg 100 mg Oral Daily Amanda Bermudez MD 100 mg at 07/01/25 0830 lamoTRIgine (LaMICtal) tablet 250 mg 250 mg Oral Nightly Amanda Bermudez MD 250 mg at 07/01/25 2144 Magnesium Cardiology Dose Replacement - Follow Nurse / BPA Driven Protocol Not Applicable PRN Amanda Bermudez MD meropenem (MERREM) 500 mg in sodium chloride 0.9 % 100 mL MBP 500 mg Intravenous Q6H Duglas Andres MD 500 mg at 07/02/25 0359 methenamine (HIPREX) tablet 1 g 1 g Oral BID With Meals Amanda Bermudez MD 1 g at 07/01/25 1713 multivitamin with minerals 1 tablet 1 tablet Oral Daily Amanda Bermudez MD 1 tablet at 07/01/25 0830 naloxone (NARCAN) injection 0.4 mg 0.4 mg Intravenous Q5 Min PRN Amanda Bermudez MD nitroglycerin (NITROSTAT) SL tablet 0.4 mg 0.4 mg Sublingual Q5 Min PRN Amanda Bermudez MD ondansetron (ZOFRAN) injection 4 mg 4 mg Intravenous Q6H PRN Amanda Bermudez MD 4 mg at 06/29/25 1646 oxyCODONE-acetaminophen (PERCOCET) 10-325 MG per tablet 1 tablet 1 tablet Oral Q6H PRN Kris Boston DO 1 tablet at 07/02/25 0125 Pharmacy to dose vancomycin Not Applicable Continuous PRN Duglas Andres MD Phosphorus Replacement - Follow Nurse / BPA Driven Protocol Not Applicable PRN Amanda Bermudez MD Potassium Replacement - Follow Nurse / BPA Driven Protocol Not Applicable PRN Amanda Bermudez MD sacubitril-valsartan (ENTRESTO) 24-26 MG tablet 1 tablet 1 tablet Oral BID Amanda Bermudez MD 1 tablet at 07/01/25 2144 sodium chloride 0.9 % flush 10 mL 10 mL Intravenous PRN Ally Jeffers V, DIABETES NURSE sodium chloride 0.9 % flush 10 mL 10 mL Intravenous Q12H Amanda Bermudez MD 10 mL at 07/01/25 0832 sodium chloride 0.9 % flush 10 mL 10 mL Intravenous PRN Amanda Bermudez MD sodium chloride 0.9 % flush 10 mL 10 mL Intravenous Q12H Duglas Andres MD 10 mL at 07/01/25 2145 sodium chloride 0.9 % flush 10 mL 10 mL Intravenous PRN Duglas Andres MD sodium chloride 0.9 % flush 20 mL 20 mL Intravenous PRN Duglas Andres MD sodium chloride 0.9 % infusion 40 mL 40 mL Intravenous PRN Duglas Andres MD vancomycin (VANCOCIN) 1,000 mg in sodium chloride 0.9 % 250 mL IVPB-VTB 1,000 mg Intravenous Q12H Osmany Mccann, [facility] 250 mL/hr at 07/01/252142 1,000 mg at 07/01/252142 vancomycin (VANCOCIN) capsule 125 mg 125 mg Oral 4x Daily Duglas Andres MD 125 mg at Followed by [START ON 07/10/2025] vancomycin (VANCOCIN) capsule 125 mg 125 mg Oral TID Duglas Andres MD Followed by [START ON 07/17/2025] vancomycin (VANCOCIN) capsule 125 mg 125 mg Oral BID Duglas Andres MD Followed by [START ON 07/25/2025] vancomycin (VANCOCIN) capsule 125 mg 125 mg Oral Daily Duglas Andres MD Followed by [START ON 08/01/2025] vancomycin (VANCOCIN) capsule 125 mg 125 mg Oral Weekly Duglas Andres MD * Osmany Mccann [facility] - 07/23/2025 7:35 AM EST Images from the original note were not included. Pharmacy Consult - Vancomycin Dosing and Monitoring Trung Pool is a 70 y.o. male receiving vancomycin therapy. Indication: bacteremia Consulting Provider: Duglas Andres MD ID Consult: yes Goal AUC: 400-600 mg/L*hr Current Antimicrobial Therapy Vancomycin 1250mg q24h Meropenem 500mg q6h Micafungin 100mg q24h Allergies Allergies as of 06/25/2025 - Reviewed 06/25/2025 Allergen Reaction Noted Keppra [levetiracetam] Other (See Comments) 08/01/2023 Bupropion Unknown (See Comments) 03/06/2022 Codeine Nausea Only 04/28/2019 Hydrocodone Unknown (See Comments) 03/06/2022 Ketorolac tromethamine Unknown (See Comments) 03/06/2022 Labs Results from last 7 days Lab Units 07/23/25 0442 07/20/25 0508 07/18/25 0337 BUN mg/dL 20.3 22.6 22.5 CREATININE mg/dL 0.94 0.81 0.82 Results from last 7 days Lab Units 07/20/25 0508 07/17/25 0548 WBC 10*3/mm3 6.74 7.10 Evaluation of Dosing Is Patient on Dialysis or Renal Replacement: no Height - 182.9 cm (72 ) Weight - 116 kg (256 lb 2.8 oz) Estimated Creatinine Clearance: 94.8 mL/min (by C-G formula based on SCr of 0.94 mg/dL). I/O last 3 completed shifts: In: 0 Out: 3000 [Urine:3000] Microbiology and Radiology Microbiology Results (last 10 days) Procedure Component Value - Date/Time Urine Culture - Urine, Indwelling Urethral Catheter [[id number]] (Abnormal) Collected: 07/14/25 005 Lab Status: Final result Specimen: Urine from Indwelling Urethral Catheter Updated: 07/15/25 1329 Urine Culture Yeast isolated Narrative: No further workup for yeast Colonization of the urinary tract without infection is common. Treatment is discouraged unless the patient is symptomatic, , or undergoing an invasive urologic procedure. Reported Vancomycin Levels Results from last 7 days Lab Units 07/23/2544107/18/25 0337 VANCOMYCIN RM mcg/mL 11.20 19.20 [employer] AUC Calculation: Current AUC: 442 mg/L*hr Predicted Steady State AUC on Current Dose: 452 mg/L*hr Predicted Steady State AUC on New Dose: n/a Assessment/Plan: Pharmacy to dose vancomycin for bacteremia. Goal AUC 400-600mg/L*hr. 07/23 SCr - 0.94 07/20 WBC - 6.74 24hr tmax - 97.4 07/23 vancomycin level - 11/2 mcg/ml @0442 Vancomycin level drawn 41 hrs following last charted dose Continue vancomycin 1250mg q24h Consider vancomycin level 07/27 BMP q48h x3 start 07/25 Monitor renal function, clinical status and infusion related reactions Follow vancomycin levels and adjust dose accordingly Thanks Osmany Mccann RPH 07/23/2025 07:23 EST * Cuco Posada MD - 07/22/2025 5:34 PM EST Neurology Note Patient: Trung Pool DATE OF : 1955 REFERRING PHYSICIAN: Dr. Reynolds CHIEF COMPLAINT: AMS HISTORY OF PRESENT ILLNESS: The patient has been more agitated, worse at night, refusing po meds. He has been seen by palliative medicine, refused hospice. Given IM Geodon earlier today. Past Medical History: Past Medical History: Diagnosis Date Anemia Cellulitis Diabetes mellitus Frequent falls History of DVT (deep vein thrombosis) Hyperlipidemia Hypertension Migraines Myocardial infarction Peripheral neuropathy Pneumonia Spinal stenosis Wears dentures FULL Wears glasses Past Surgical History: Past Surgical History: Procedure Laterality Date ABOVE [...] 2 MIN 54 SEC, DOSE: 66 MGY. AORTOGRAM Left 07/03/2025 Procedure: ARTERIOGRAM LOWER EXTREMITY; Surgeon: Vaughn Hollingsworth DO; Location: [facility]; Service: Vascular; Laterality: Left; FT-6MINS 24SEC 140 MGY CONTRAST -15ML BACK SURGERY FOR DISC HERNIATION CARDIAC CATHETERIZATION [...] ASSISTED CLOSURE; Surgeon: Cecil Buenrostro Jr., MD;Location: [facility]; Service: Orthopedics; Laterality: Left; INCISION AND DRAINAGE LEG Left 07/25/2023 Procedure: INCISION AND DRAINAGE HEEL, WOUND VAC; Surgeon: Cecil Buenrostro Jr., MD; Location: [facility]; Service: Orthopedics; Laterality: Left; INCISION AND DRAINAGE LEG Left 07/03/2025 Procedure: DEBRIDEMENT WOUND, PLACEMENT OF WOUND VAC; Surgeon: Vaughn Hollingsworth DO; Location: [facility]; Service: Vascular; Laterality: Left; INTERVENTIONAL RADIOLOGY PROCEDURE N/A 05/02/2019 Procedure: IVC FILTER PLACEMENT; Surgeon: Pedro Zapien MD; Location: [facility]; Service: Interventional Radiology INTERVENTIONAL RADIOLOGY PROCEDURE Left 09/07/2024 Procedure: LEFT peroneal arteriovenous fistula embolization - Right femoral access; Surgeon: Jared Marcano MD; Location: [facility]; Service: Cardiovascular; Laterality: Left; Please coordinate with Gautamconor Patel ([facility] [phone] who will bring coils LUMBAR DISCECTOMY N/A 05/03/2019 Procedure: THORACIC LAMINECTOMY T11-12; Surgeon: Tyree Tan MD; Location: [facility]; Service: Neurosurgery Social History: Social History Socioeconomic History Marital status: Single Tobacco Use Smoking status: Never Passive exposure: Never Smokeless tobacco: Never Vaping Use Vaping status: Never Used Substance and Sexual Activity Alcohol use: Never Drug use: Yes Types: Marijuana Sexual activity: Defer Family History: Family History Problem Relation Name Age of Onset Alcohol abuse Father Medications Prior to Admission: Prior to Admission medications Medication Sig Start Date End Date Taking? Authorizing Provider apixaban (ELIQUIS) 5 MG tablet tablet Take 1 tablet by mouth 2 (Two) Times a Day. Yes Provider, MD Dario baclofen (LIORESAL) 10 MG tablet Take 1 tablet by mouth Every 12 (Twelve) Hours. 08/14/23 Yes Carter Mendieta APRN carvedilol (COREG) 3.125 MG tablet Take 1 tablet by mouth 2 (Two) Times a Day With Meals. 09/17/24 Yes Ju Gonzalez APRN clopidogrel (PLAVIX) 75 MG tablet Take 1 tablet by mouth Daily. 02/05/24 Yes Alondra Lanza MD finasteride (PROSCAR) 5 MG tablet Take 1 tablet by mouth Daily. 09/17/24 Yes Ju Gonzalez APRN folic acid (FOLVITE) 1 MG tablet Take 1 tablet by mouth Daily. Yes Dario Tatum MD furosemide (LASIX) 40 MG tablet Take 1 tablet by mouth Daily. 04/03/20 Yes Dario Tatum MD gabapentin (NEURONTIN) 100 MG capsule Take 2 capsules by mouth 3 (Three) Times a Day As Needed. YesProviderDario MD Insulin Glargine (BASAGLAR KWIKPEN) 100 UNIT/ML injection pen Inject 56 Units under the skin into the appropriate area as directed Every Night. For 30 days 01/10/24 Yes Dario Tatum MD lamoTRIgine (LaMICtal) 100 MG tablet Take 1 tablet by mouth 2 (Two) Times a Day. 100mg AM + 250mg PM 07/15/23 Yes Chinyere Hensley APRN lamoTRIgine (LaMICtal) 150 MG tablet Take 1 tablet by mouth Every Night. Patient takes 100 mg in AM, 250 mg in PM Yes Dario Tatum MD methenamine (HIPREX) 1 g tablet Take 1 tablet by mouth 2 (Two) Times a Day With Meals. Yes Dario Tatum MD multivitamin with minerals tablet tablet Take 1 tablet by mouth Daily. Yes Dario Tatum MD ondansetron (ZOFRAN) 4 MG tablet Take 1 tablet by mouth Every 8 (Eight) Hours As Needed for Nausea or Vomiting. Yes Dario Tatum MD pantoprazole (PROTONIX) 40 MG EC tablet Take 1 tablet by mouth 2 (Two) Times a Day. Yes Dario Tatum MD sacubitril-valsartan (ENTRESTO) 24-26 MG tablet Take 1 tablet by mouth 2 (Two) Times a Day. Yes Dario Tatum MD vitamin C (ASCORBIC ACID) 250 MG tablet Take 2 tablets by mouth Daily. Yes ProviderDario MD Allergies: Keppra [levetiracetam], Bupropion, Codeine, Hydrocodone, and Ketorolac tromethamine Review of system Review of Systems Unable to perform ROS: Mental status change All other systems reviewed and are negative. Vitals: 07/22/25 0615 BP: 166/70 Pulse: 68 Resp: 18 Temp: SpO2: 96% Physical exam Physical Exam Cardiovascular: Rate and Rhythm: Normal rate and regular rhythm. Pulmonary: Effort: Pulmonary effort is normal. Neurological: Comments: Asleep, awakens to voice, calm. Oriented to self and hospital, no facial droop, moves arms well, left leg is wrapped. Lab Results Component Value Date WBC 6.74 07/20/2025 HGB 9.6 (L) 07/20/2025 HCT 30.3 (L) 07/20/2025 MCV 78.3 (L) 07/20/2025 PLT 228 07/20/2025 Lab Results Component Value Date GLUCOSE 90 07/20/2025 BUN 22.6 07/20/2025 CREATININE 0.81 07/20/2025 EGFRIFNONA 104 11/06/2021 EGFRIFAFRI >60 05/22/2022 BCR 27.9 (H) 07/20/2025 CO2 19.5 (L) 07/20/2025 CALCIUM 8.7 07/20/2025 ALBUMIN 3.0 (L) 06/26/2025 AST 15 06/26/2025 ALT 13 06/26/2025 During this visit the following were done: Labs Reviewed [x] Labs Ordered [] Radiology Reports Reviewed [] Radiology Ordered [] EKG, echo, and/or stress test reviewed [] EEG results reviewed [] EEG reviewed and interpreted per myself [] Discussed case with neurointerventionalist or neuroradiologist [] Referring Provider Records Reviewed [] ER Records Reviewed [] Hospital Records Reviewed [] History Obtained From Family [] Radiological images view and Interpreted per myself [] Case Discussed with referring provider [] Decision to obtain and request outside records [] Assessment and Plan TME/hospital delirium, fluctuating. Recurrent LE cellulitis with sepsis. H/O diabetic PN and PNES. CT head negative for acute changes on 07/03. - Continue nightly Zyprexa po or IM (he has been refusing po meds). - Continue Lamictal. * Ana Reynolds, DO - 07/22/2025 10:31 AM EST Images from the original note were not included. [facility] Medicine Services PROGRESS NOTE Patient Name: Trung Pool : 1955 Date of Admission: 06/25/2025 Primary Care Physician: Gustavo Mehta MD Subjective CC: f/u LLE HPI: Patient with worsening confusion and agitation overnight. Pulled out IV, and pulled off wound vac. Agitated and combative. This morning is sleeping soundly after Geodon dose Objective Vital Signs: Temp: [97.7 ??F (36.5 ??C)-97.9 ??F (36.6 ??C)] 97.9 ??F (36.6 ??C) Heart Rate: [68-80] 68 Resp: [16-18] 18 BP: (154-192)/(70-92) 166/70 Physical Exam: Constitutional: No acute distress,sleeping in bed. HENT: NCAT, mucous membranes moist Respiratory: Clear to auscultation bilaterally, respiratory effort normal Cardiovascular: RRR, no murmurs, rubs, or gallops Gastrointestinal: soft, non-distended Musculoskeletal: R AKA, L leg with left foot, wound vac has now been removed Psychiatric: UTO asleep Neurologic: UTO, asleep Skin: No rashes Results Reviewed: LAB RESULTS: Lab 07/20/25 0508 07/17/25 0548 07/16/25 0447 WBC 6.74 7.10 6.76 HEMOGLOBIN 9.6* 9.3* 8.9* HEMATOCRIT 30.3* 31.1* 30.2* PLATELETS 228 211 185 MCV 78.3* 79.1 80.7 Lab 07/20/25 0508 07/19/25 0835 07/18/25 0337 07/17/25 0548 07/16/25 0447 SODIUM 136 -- 137 139 139 POTASSIUM 5.0 -- 5.2 5.2 4.9 CHLORIDE 107 -- 108* 109* 110* CO2 19.5* -- 21.4* 19.1* 19.3* ANION GAP 9.5 -- 7.6 10.9 9.7 BUN 22.6 -- 22.5 21.8 23.1* CREATININE 0.81 -- 0.82 0.89 0.80 EGFR 94.3 -- 93.9 91.6 94.6 GLUCOSE 90 -- 148* 132* 134* CALCIUM 8.7 -- 8.6 8.8 8.5* MAGNESIUM -- 1.9 2.1 1.9 2.0 Brief Urine Lab Results (Last result in the past 365 days) Color Clarity Blood Leuk Est Nitrite Protein CREAT Urine HCG 07/14/2552 Yellow Clear Trace Moderate (2+) Negative 30 mg/dL (1+) Microbiology Results Abnormal Procedure Component Value - Date/Time Urine Culture - Urine, Indwelling Urethral Catheter [[id number]] (Abnormal) Collected: 07/14/2552 Lab Status: Final result Specimen: Urine from Indwelling Urethral Catheter Updated: 07/15/25 132 Urine Culture Yeast isolated Narrative: No further workup for yeast Colonization of the urinary tract without infection is common. Treatment is discouraged unless the patient is symptomatic, , or undergoing an invasive urologic procedure. Urine Culture - Urine, Indwelling Urethral Catheter [[id number]] (Abnormal) (Susceptibility) Collected: 06/25/252000 Lab Status: Final result Specimen: Urine from Indwelling Urethral Catheter Updated: 06/30/25 1001 Urine Culture >100,000 CFU/mL Proteus mirabilis Narrative: Colonization of the urinary tract without infection is common. Treatment is discouraged unless the patient is symptomatic, , or undergoing an invasive urologic procedure. Susceptibility Proteus mirabilis MURRAY Amoxicillin + Clavulanate Susceptible Ampicillin Resistant Ampicillin + Sulbactam Intermediate Cefazolin (Urine) Resistant Cefepime Resistant Ceftazidime Susceptible Ceftriaxone Resistant Cefuroxime axetil Resistant Ciprofloxacin Resistant Gentamicin Susceptible Levofloxacin Resistant Nitrofurantoin Resistant Piperacillin + Tazobactam Susceptible Trimethoprim + Sulfamethoxazole Resistant Blood Culture - Blood, Hand, Right [[id number]] (Abnormal) (Susceptibility) Collected: 06/25/252029 Lab Status: Edited Result - FINAL Specimen: Blood from Hand, Right Updated: 06/29/25 0713 Blood Culture Enterococcus faecium Comment: Infectious disease consultation is highly recommended. Isolated from Anaerobic Bottle Gram Stain Anaerobic Bottle Gram positive cocci in chains Narrative: Less than seven (7) mL's of blood was collected. Insufficient quantity may yield false negative results. requested linezolid & daptomycin 06/28/25 Susceptibility Enterococcus faecium MURRAY Method Not Specified Ampicillin Susceptible Daptomycin Susceptible dose dependent Gentamicin High Level Synergy Susceptible Linezolid Susceptible (C) [1] Vancomycin Susceptible [1] Appended report. These results have been appended to a previously final verified report. Wound Culture - Swab, Foot, Left [[id number]] (Abnormal) (Susceptibility) Collected: 06/25/25 1818 Lab Status: Final result Specimen: Swab from Foot, Left Updated: 06/29/25 0645 Wound Culture Heavy growth (4+) Staphylococcus aureus, MRSA Comment: Methicillin resistant Staphylococcus aureus, Patient may be an isolation risk. Moderate growth (3+) Morganella morganii ssp morganii Moderate growth (3+) Proteus mirabilis ESBL Comment: Consider infectious disease consult. Susceptibility results may not correlate to clinical outcomes. Gram Stain Few (2+) WBCs seen Few (2+) Gram positive cocci in pairs, chains and clusters Few (2+) Gram negative bacilli Susceptibility Staphylococcus aureus, MRSA MURRAY Clindamycin Susceptible Erythromycin Resistant Oxacillin Resistant Rifampin Susceptible Tetracycline Susceptible Trimethoprim + Sulfamethoxazole Resistant Vancomycin Susceptible Susceptibility Morganella morganii ssp morganii MURRAY Method Not Specified Amoxicillin + Clavulanate Resistant Ampicillin Resistant Ampicillin + Sulbactam Resistant Cefazolin (Non Urine) Resistant Cefepime Susceptible Cefotaxime Susceptible Ceftazidime Susceptible Cefuroxime axetil Resistant Ciprofloxacin Resistant Gentamicin Susceptible Levofloxacin Resistant Piperacillin + Tazobactam Susceptible Tetracycline Susceptible Trimethoprim + Sulfamethoxazole Resistant Susceptibility Proteus mirabilis ESBL MURRAY Ciprofloxacin Resistant Ertapenem Susceptible Levofloxacin Resistant Meropenem Susceptible Tetracycline Resistant Trimethoprim + Sulfamethoxazole Resistant Susceptibility Comments Morganella morganii ssp morganii Cefotaxime susceptibility can be used as a surrogate for ceftriaxone susceptibility Proteus mirabilis ESBL With the exception of urinary-sourced infections, aminoglycosides should not be used as monotherapy. Blood Culture ID, PCR - Blood, Hand, Right [[id number]] (Abnormal) Collected: 06/25/252029 Lab Status: Final result Specimen: Blood from Hand, Right Updated: 06/26/252101 BCID, PCR Enterococcus faecium. Zee/B (vancomycin resistance gene) not detected. Identification byBCID2 PCR. BOTTLE TYPE Anaerobic Bottle Narrative: Infectious disease consultation is highly recommended to rule out distant foci of infection. MRSA Screen, PCR (Inpatient) - Swab, Nares [[id number]] (Abnormal) Collected: 06/26/2545 Lab Status: Final result Specimen: Swab from Nares Updated: 06/26/2550 MRSA PCR Positive Narrative: The negative predictive value of this diagnostic test is high and should only be used to consider de-escalating anti-MRSA therapy. A positive result may indicate colonization with MRSA and must be correlated clinically. Gastrointestinal Panel, PCR - Stool, Per Rectum [[id number]] (Abnormal) Collected: 06/26/2545 Lab Status: Final result Specimen: Stool from Per Rectum Updated: 06/26/2550 Campylobacter Not Detected Plesiomonas shigelloides Not Detected Salmonella Not Detected Vibrio Not Detected Vibrio cholerae Not Detected Yersinia enterocolitica Not Detected Enteroaggregative E. coli (EAEC) Not Detected Enteropathogenic E. coli (EPEC) Not Detected Enterotoxigenic E. coli (ETEC) lt/st Not Detected Shiga-like toxin-producing E. coli (STEC) stx1/stx2 Not Detected Shigella/Enteroinvasive E. coli (EIEC) Not Detected Cryptosporidium Not Detected Cyclospora cayetanensis Not Detected Entamoeba histolytica Not Detected Giardia lamblia Not Detected Adenovirus F40/41 Not Detected Astrovirus Not Detected Norovirus GI/GII Detected Comment: If a positive Norovirus result is inconsistent with clinical presentation, the positive Norovirus result should be confirmed using another method. Rotavirus A Not Detected Sapovirus (I, II, IV or V) Not Detected Clostridioides difficile Toxin - Stool, Per Rectum [[id number]] (Abnormal) Collected: 06/26/2545 Lab Status: Final result Specimen: Stool from Per Rectum Updated: 06/26/25 8860 Narrative: The following orders were created for panel order Clostridioides difficile Toxin - Stool, Per Rectum. Procedure Abnormality Status --------- ------ Clostridioides difficile...[[id number]] Abnormal Final result Please view results for these tests on the individual orders. Clostridioides difficile Toxin, PCR - Stool, Per Rectum [[id number]] (Abnormal) Collected: 06/26/25 0046 Lab Status: Final result Specimen: Stool from Per Rectum Updated: 06/26/25 0755 Toxigenic C. difficile by PCR Detected Narrative: DNA from a toxigenic strain of C.difficile has been detected. No radiology results from the last 24 hrs Results for orders placed during the hospital encounter of 08/31/24 Adult Transthoracic Echo Complete W/ Cont if Necessary Per Protocol 09/12/2024 4:10 PM Interpretation Summary Left ventricular systolic function is normal. Calculated left ventricular EF = 52.5% There is a trivial pericardial effusion. The aortic valve exhibits sclerosis. Mitral annular calcification is present. Current medications: Scheduled Meds:acetaminophen, 1,000 mg, Oral, Q8H apixaban, 5 mg, Oral, BID vitamin C, 500 mg, Oral, Daily baclofen, 10 mg, Oral, Q12H carvedilol, 3.125 mg, Oral, BID With Meals clopidogrel, 75 mg, Oral, Daily famotidine, 20 mg, Oral, BID AC finasteride, 5 mg, Oral, Daily folic acid, 1 mg, Oral, Daily gabapentin, 600 mg, Oral, Q8H insulin glargine, 30 Units, Subcutaneous, Nightly lamoTRIgine, 100 mg, Oral, Daily lamoTRIgine, 250 mg, Oral, Nightly LORazepam, 1 mg, Intramuscular, Once meropenem, 500 mg, Intravenous, Q6H methenamine, 1 g, Oral, BID With Meals micafungin (MYCAMINE) IV, 100 mg, Intravenous, Q24H mirtazapine, 15 mg, Oral, Nightly multivitamin with minerals, 1 tablet, Oral, Daily OLANZapine zydis, 10 mg, Oral, Nightly oxyCODONE, 15 mg, Oral, Q6H sodium chloride, 10 mL, Intravenous, Q12H vancomycin, 125 mg, Oral, BID Followed by [START ON 07/25/2025] vancomycin, 125 mg, Oral, Daily Followed by [START ON 08/01/2025] vancomycin, 125 mg, Oral, Weekly vancomycin, 1,250 mg, Intravenous, Q24H Continuous Infusions: PRN Meds:. aluminum-magnesium hydroxide-simethicone benzonatate senna-docusate sodium AND polyethylene glycol AND bisacodyl AND bisacodyl Calcium Replacement - Follow Nurse / BPA Driven Protocol dextrose dextrose diphenhydrAMINE-zinc acetate glucagon (human recombinant) influenza vaccine ipratropium-albuterol Magnesium Cardiology Dose Replacement - Follow Nurse / BPA Driven Protocol [DISCONTINUED] Morphine AND naloxone ondansetron oxyCODONE Phosphorus Replacement - Follow Nurse / BPA Driven Protocol Potassium Replacement - Follow Nurse / BPA Driven Protocol Insert Peripheral IV AND sodium chloride sodium chloride ziprasidone Assessment & Plan Active Hospital Problems Diagnosis POA Wound infection [T14.8XXA, L08.9] Unknown Acute UTI (urinary tract infection) [N39.0] Yes Diarrhea of presumed infectious origin [R19.7] Yes Acute on chronic blood loss anemia [D62] Yes BPH without obstruction/lower urinary tract symptoms [N40.0] Yes GERD without esophagitis [K21.9] Yes Bilateral inguinal hernia [K40.20] Yes Gastroenteritis due to norovirus [A08.11] Yes Cellulitis [L03.90] Yes Type 2 diabetes mellitus, with long-term current use of insulin [E11.9, Z79.4] Not Applicable PAD (peripheral artery disease) [I73.9] Yes Coronary artery disease involving [place] coronary artery of [place] heart without angina pectoris [I25.10] Yes Seizure disorder [G40.909] Yes Primary hypertension [I10] Yes Resolved Hospital Problems No resolved problems to display. Brief Hospital Course to date: Trung Pool is a 70yoM with PMH significant for HTN, HLD, CAD s/p stenting, PAD s/p R BKA and prior LLE revascularization and toe amputations, recurrent LLE cellulitis / wound infections, chronicpain / peripheral neuropathy, insulin- dependent DMII, chronic urinary retention with De [place] Santos catheter, seizure disorder with history of pseudoseizures, obesity and chronic debility. Last admitted to [facility] 06/02-06/11/25 for LLE cellulitis with failure of outpatient treatment. Wound cultures grew Proteus and concern for ESBL per lab and MRSA. He completed 7 days of IV abx prior to DC home. He has declined LLE amputation He returned to [facility] ED on 06/25/25 for evaluation of hematuria, L foot drainage, diarrhea and fatigue. Found to have Norovirus and Enterococcus bacteremia. Hospital course complicated by hospital delirium on 07/14 Hospital-acquired delirium - worsening - Neurology reconsulted given worsening - continue increased dose of nightly zyprexa, continue IM Geodon q6hrs, patient removed IVs, and wound vac last night, refusing care, agitated and confused. Add IM ativan PRN x 1 today. - trying to avoid restraints if possible LLE Wound Infection w/Cellulitis Severe PAD History of right BKA, LLE revascularization and toe amputation Enterococcus faecium bacteremia - MRI L foot showed edema in the distal first and second metatarsal diaphyses at the resection margins, osteomyelitis is not excluded. CT angio left lower extremity revealed moderate focal narrowing at the junction of the SFA and the popliteal artery. 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 - LLE arterial dopplers abnormal waveforms suggest inflow disease. Moderate 60% stenosis in the left SFA, the left CHIP appears to be occluded filling vis collaterals retrograde - Blood cultures positive for Enterococcus faecium - ID following - on meropenem and Vancomycin - Vascular surgery consulted - follows with Dr. Marcano. He is s/p LLE excisional debridement and wound VAC application on 07/03/25. Patient continues to adamantly refuse amputation - PT wound care following, patient self removed his wound vac on 07/22 - Continue Plavix / Eliquis - Appreciate palliative care assistance with pain management - patient is now agreeable to placement in SNF for abx, CM following Hyperkalemia - resolved - Potassium of 6.2 07/11 - s/p treatment. Entresto now on hold and K+ has been stable. Would stop Entresto at [place] Acute CAUTI and hematuria, POA History of BPH Chronic urinary retention with chronic De [place] Santos catheter - Urine culture grew Yeast - H&H stable, resumed Eliquis 07/07 - Urology consulted - recommend continue De Los Santos and finasteride. - Needs OP referral to urology at [place] for long-term management Diarrhea Norovirus / C. Diff colonization - GI PCR panel with norovirus, C. difficile toxin is positive but antigen negative suggest colonization - CT imaging suggestive of proctitis - Continue antibiotics as above, ID following Acute on Chronic anemia, possible blood loss - Continue to monitor H&H, stable, resumed eliqius - Transfuse PRBC if hemoglobin <7 Type 2 diabetes Transient hypoglycemia - Previously well-controlled with A1c 7.6 (08/2024), A1c 7.82 - Continue Lantus 30 units QHS Seizure disorder History of pseudoseizures - Continue lamotrigine - Seizure like activity noted upon awaking from procedure on 07/03. Aborted with propofol and versed. My partner discussed with general neurology over the phone. Recommended PRN ativan for now and outpatient follow up with Dr. Anand as seizures are likely 2/2 anesthesia/procedure. S/p EEG. If seizure like activity recurs while inpatient, recommended loading with 1g of Keppra and placing general neurology consult. - No recurrence of pseudoseizure GERD without Esophagitis - PPI Bilateral Inguinal Hernia, incidental finding on CT - CT imaging revealed bilateral inguinal hernias, larger on the left containing a partial loop of sigmoid colon, without proximal dilatation. - General surgery consult; recommend watchful waiting, poor operative candidate for an elective procedure while asymptomatic, and has signed off Expected Discharge Location and Transportation: SNF pending, will be difficult placement Expected Discharge Expected Discharge Date: 07/23/2025; Expected Discharge Time: VTE Prophylaxis: Pharmacologic VTE prophylaxis orders are present. AM-PAC 6 Clicks Score (PT): 8 (07/22/25 0800) CODE STATUS: Code Status and Medical Interventions: CPR (Attempt to Resuscitate); Full Support Ordered at: 06/25/25 2310 Code Status (Patient has no pulse and is not breathing): CPR (Attempt to Resuscitate) Medical Interventions (Patient has pulse or is breathing): Full Support Level Of Support Discussed With: Patient Ana Reynolds DO 07/22/25 * Ana Reynolds DO - 07/21/2025 11:40 AM EST Images from the original note were not included. [facility] Medicine Services PROGRESS NOTE Patient Name: Trung Pool : 1955 Date of Admission: 06/25/2025 Primary Care Physician: Gustavo Mehta MD Subjective CC: f/u LLE HPI: Patient resting in bed. Sleeping. Per nursing had a wild night, pulled out several IVs, was agitated, grabbing at IV pole, ect. Currently resting comfortably. Objective Vital Signs: Temp: [97.7 ??F (36.5 ??C)-97.8 ??F (36.6 ??C)] 97.7 ??F (36.5 ??C) Heart Rate: [73-75] 75 Resp: [17-18] 18 BP: (126-139)/(51-87) 130/51 Physical Exam: Constitutional: No acute distress,sleeping in bed. HENT: NCAT, mucous membranes moist Respiratory: Clear to auscultation bilaterally, respiratory effort normal Cardiovascular: RRR, no murmurs, rubs, or gallops Gastrointestinal: soft, nontender, nondistended Musculoskeletal: R AKA, L leg with left foot wound vac in place as well as bandage that was not removed today Psychiatric: UTO asleep Neurologic: UTO, asleep Skin: No rashes Results Reviewed: LAB RESULTS: Lab 07/20/25 0508 07/17/25 0548 07/16/257 07/15/25 0432 WBC 6.74 7.10 6.76 8.08 HEMOGLOBIN 9.6* 9.3* 8.9* 8.9* HEMATOCRIT 30.3* 31.1* 30.2* 30.1* PLATELETS 228 211 185 210 MCV 78.3* 79.1 80.7 80.9 Lab 07/20/25 0508 07/19/25 0835 07/18/25 0337 07/17/25 0548 07/16/257 07/15/25 0432 SODIUM 136 -- 137 139 139 139 POTASSIUM 5.0 -- 5.2 5.2 4.9 4.8 CHLORIDE 107 -- 108* 109* 110* 111* CO2 19.5* -- 21.4* 19.1* 19.3* 18.8* ANION GAP 9.5 -- 7.6 10.9 9.7 9.2 BUN 22.6 -- 22.5 21.8 23.1* 25.4* CREATININE 0.81 -- 0.82 0.89 0.80 0.74* EGFR 94.3 -- 93.9 91.6 94.6 96.9 GLUCOSE 90 -- 148* 132* 134* 98 CALCIUM 8.7 -- 8.6 8.8 8.5* 8.6 MAGNESIUM -- 1.9 2.1 1.9 2.0 2.1 Lab 07/14/25 1517 FIO2 21 CARBOXYHEMOGLOBIN (VENOUS) 1.3 Brief Urine Lab Results (Last result in the past 365 days) Color Clarity Blood Leuk Est Nitrite Protein CREAT Urine HCG 07/14/2552 Yellow Clear Trace Moderate (2+) Negative 30 mg/dL (1+) Microbiology Results Abnormal Procedure Component Value - Date/Time Urine Culture - Urine, Indwelling Urethral Catheter [[id number]] (Abnormal) Collected: 07/14/2552 Lab Status: Final result Specimen: Urine from Indwelling Urethral Catheter Updated: 07/15/25 132 Urine Culture Yeast isolated Narrative: No further workup for yeast Colonization of the urinary tract without infection is common. Treatment is discouraged unless the patient is symptomatic, , or undergoing an invasive urologic procedure. Urine Culture - Urine, Indwelling Urethral Catheter [[id number]] (Abnormal) (Susceptibility) Collected: 06/25/252000 Lab Status: Final result Specimen: Urine from Indwelling Urethral Catheter Updated: 06/30/25 1001 Urine Culture >100,000 CFU/mL Proteus mirabilis Narrative: Colonization of the urinary tract without infection is common. Treatment is discouraged unless the patient is symptomatic, , or undergoing an invasive urologic procedure. Susceptibility Proteus mirabilis MURRAY Amoxicillin + Clavulanate Susceptible Ampicillin Resistant Ampicillin + Sulbactam Intermediate Cefazolin (Urine) Resistant Cefepime Resistant Ceftazidime Susceptible Ceftriaxone Resistant Cefuroxime axetil Resistant Ciprofloxacin Resistant Gentamicin Susceptible Levofloxacin Resistant Nitrofurantoin Resistant Piperacillin + Tazobactam Susceptible Trimethoprim + Sulfamethoxazole Resistant Blood Culture - Blood, Hand, Right [[id number]] (Abnormal) (Susceptibility) Collected: 06/25/252029 Lab Status: Edited Result - FINAL Specimen: Blood from Hand, Right Updated: 06/29/25 0713 Blood Culture Enterococcus faecium Comment: Infectious disease consultation is highly recommended. Isolated from Anaerobic Bottle Gram Stain Anaerobic Bottle Gram positive cocci in chains Narrative: Less than seven (7) mL's of blood was collected. Insufficient quantity may yield false negative results. requested linezolid & daptomycin 06/28/25 Susceptibility Enterococcus faecium MURRAY Method Not Specified Ampicillin Susceptible Daptomycin Susceptible dose dependent Gentamicin High Level Synergy Susceptible Linezolid Susceptible (C) [1] Vancomycin Susceptible [1] Appended report. These results have been appended to a previously final verified report. Wound Culture - Swab, Foot, Left [[id number]] (Abnormal) (Susceptibility) Collected: 06/25/251817 Lab Status: Final result Specimen: Swab from Foot, Left Updated: 06/29/25 0645 Wound Culture Heavy growth (4+) Staphylococcus aureus, MRSA Comment: Methicillin resistant Staphylococcus aureus, Patient may be an isolation risk. Moderate growth (3+) Morganella morganii ssp morganii Moderate growth (3+) Proteus mirabilis ESBL Comment: Consider infectious disease consult. Susceptibility results may not correlate to clinical outcomes. Gram Stain Few (2+) WBCs seen Few (2+) Gram positive cocci in pairs, chains and clusters Few (2+) Gram negative bacilli Susceptibility Staphylococcus aureus, MRSA MURRAY Clindamycin Susceptible Erythromycin Resistant Oxacillin Resistant Rifampin Susceptible Tetracycline Susceptible Trimethoprim + Sulfamethoxazole Resistant Vancomycin Susceptible Susceptibility Morganella morganii ssp morganii MURRAY Method Not Specified Amoxicillin + Clavulanate Resistant Ampicillin Resistant Ampicillin + Sulbactam Resistant Cefazolin (Non Urine) Resistant Cefepime Susceptible Cefotaxime Susceptible Ceftazidime Susceptible Cefuroxime axetil Resistant Ciprofloxacin Resistant Gentamicin Susceptible Levofloxacin Resistant Piperacillin + Tazobactam Susceptible Tetracycline Susceptible Trimethoprim + Sulfamethoxazole Resistant Susceptibility Proteus mirabilis ESBL MURRAY Ciprofloxacin Resistant Ertapenem Susceptible Levofloxacin Resistant Meropenem Susceptible Tetracycline Resistant Trimethoprim + Sulfamethoxazole Resistant Susceptibility Comments Morganella morganii ssp morganii Cefotaxime susceptibility can be used as a surrogate for ceftriaxone susceptibility Proteus mirabilis ESBL With the exception of urinary-sourced infections, aminoglycosides should not be used as monotherapy. Blood Culture ID, PCR - Blood, Hand, Right [[id number]] (Abnormal) Collected: 06/25/252029 Lab Status: Final result Specimen: Blood from Hand, Right Updated: 06/26/252101 BCID, PCR Enterococcus faecium. Zee/B (vancomycin resistance gene) not detected. Identification byBCID2 PCR. BOTTLE TYPE Anaerobic Bottle Narrative: Infectious disease consultation is highly recommended to rule out distant foci of infection. MRSA Screen, PCR (Inpatient) - Swab, Nares [[id number]] (Abnormal) Collected: 06/26/2545 Lab Status: Final result Specimen: Swab from Nares Updated: 06/26/25 0850 MRSA PCR Positive Narrative: The negative predictive value of this diagnostic test is high and should only be used to consider de-escalating anti-MRSA therapy. A positive result may indicate colonization with MRSA and must be correlated clinically. Gastrointestinal Panel, PCR - Stool, Per Rectum [[id number]] (Abnormal) Collected: 06/26/2545 Lab Status: Final result Specimen: Stool from Per Rectum Updated: 06/26/25 0850 Campylobacter Not Detected Plesiomonas shigelloides Not Detected Salmonella Not Detected Vibrio Not Detected Vibrio cholerae Not Detected Yersinia enterocolitica Not Detected Enteroaggregative E. coli (EAEC) Not Detected Enteropathogenic E. coli (EPEC) Not Detected Enterotoxigenic E. coli (ETEC) lt/st Not Detected Shiga-like toxin-producing E. coli (STEC) stx1/stx2 Not Detected Shigella/Enteroinvasive E. coli (EIEC) Not Detected Cryptosporidium Not Detected Cyclospora cayetanensis Not Detected Entamoeba histolytica Not Detected Giardia lamblia Not Detected Adenovirus F40/41 Not Detected Astrovirus Not Detected Norovirus GI/GII Detected Comment: If a positive Norovirus result is inconsistent with clinical presentation, the positive Norovirus result should be confirmed using another method. Rotavirus A Not Detected Sapovirus (I, II, IV or V) Not Detected Clostridioides difficile Toxin - Stool, Per Rectum [[id number]] (Abnormal) Collected: 06/26/2545 Lab Status: Final result Specimen: Stool from Per Rectum Updated: 06/26/25 1315 Narrative: The following orders were created for panel order Clostridioides difficile Toxin - Stool, Per Rectum. Procedure Abnormality Status --------- ------ Clostridioides difficile...[[id number]] Abnormal Final result Please view results for these tests on the individual orders. Clostridioides difficile Toxin, PCR - Stool, Per Rectum [[id number]] (Abnormal) Collected: 06/26/2545 Lab Status: Final result Specimen: Stool from Per Rectum Updated: 06/26/25 0755 Toxigenic C. difficile by PCR Detected Narrative: DNA from a toxigenic strain of C.difficile has been detected. No radiology results from the last 24 hrs Results for orders placed during the hospital encounter of 08/31/24 Adult Transthoracic Echo Complete W/ Cont if Necessary Per Protocol 09/12/2024 4:10 PM Interpretation Summary Left ventricular systolic function is normal. Calculated left ventricular EF = 52.5% There is a trivial pericardial effusion. The aortic valve exhibits sclerosis. Mitral annular calcification is present. Current medications: Scheduled Meds:acetaminophen, 1,000 mg, Oral, Q8H apixaban, 5 mg, Oral, BID vitamin C, 500 mg, Oral, Daily baclofen, 10 mg, Oral, Q12H carvedilol, 3.125 mg, Oral, BID With Meals clopidogrel, 75 mg, Oral, Daily famotidine, 20 mg, Oral, BID AC finasteride, 5 mg, Oral, Daily folic acid, 1 mg, Oral, Daily gabapentin, 600 mg, Oral, Q8H insulin glargine, 30 Units, Subcutaneous, Nightly lamoTRIgine, 100 mg, Oral, Daily lamoTRIgine, 250 mg, Oral, Nightly meropenem, 500 mg, Intravenous, Q6H methenamine, 1 g, Oral, BID With Meals micafungin (MYCAMINE) IV, 100 mg, Intravenous, Q24H mirtazapine, 15 mg, Oral, Nightly multivitamin with minerals, 1 tablet, Oral, Daily OLANZapine zydis, 10 mg, Oral, Nightly oxyCODONE, 15 mg, Oral, Q6H sodium chloride, 10 mL, Intravenous, Q12H vancomycin, 125 mg, Oral, BID Followed by [START ON 07/25/2025] vancomycin, 125 mg, Oral, Daily Followed by [START ON 08/01/2025] vancomycin, 125 mg, Oral, Weekly vancomycin, 1,250 mg, Intravenous, Q24H Continuous Infusions: PRN Meds:. aluminum-magnesium hydroxide-simethicone benzonatate senna-docusate sodium AND polyethylene glycol AND bisacodyl AND bisacodyl Calcium Replacement - Follow Nurse / BPA Driven Protocol dextrose dextrose diphenhydrAMINE-zinc acetate glucagon (human recombinant) influenza vaccine ipratropium-albuterol Magnesium Cardiology Dose Replacement - Follow Nurse / BPA Driven Protocol [DISCONTINUED] Morphine AND naloxone ondansetron oxyCODONE Phosphorus Replacement - Follow Nurse / BPA Driven Protocol Potassium Replacement - Follow Nurse / BPA Driven Protocol Insert Peripheral IV AND sodium chloride sodium chloride ziprasidone Assessment & Plan Active Hospital Problems Diagnosis POA Wound infection [T14.8XXA, L08.9] Unknown Acute UTI (urinary tract infection) [N39.0] Yes Diarrhea of presumed infectious origin [R19.7] Yes Acute on chronic blood loss anemia [D62] Yes BPH without obstruction/lower urinary tract symptoms [N40.0] Yes GERD without esophagitis [K21.9] Yes Bilateral inguinal hernia [K40.20] Yes Gastroenteritis due to norovirus [A08.11] Yes Cellulitis [L03.90] Yes Type 2 diabetes mellitus, with long-term current use of insulin [E11.9, Z79.4] Not Applicable PAD (peripheral artery disease) [I73.9] Yes Coronary artery disease involving [place] coronary artery of [place] heart without angina pectoris [I25.10] Yes Seizure disorder [G40.909] Yes Primary hypertension [I10] Yes Resolved Hospital Problems No resolved problems to display. Brief Hospital Course to date: Trung Pool is a 70yoM with PMH significant for HTN, HLD, CAD s/p stenting, PAD s/p R BKA and prior LLE revascularization and toe amputations, recurrent LLE cellulitis / wound infections, chronicpain / peripheral neuropathy, insulin- dependent DMII, chronic urinary retention with De [place] Santos catheter, seizure disorder with history of pseudoseizures, obesity and chronic debility. Last admitted to [facility] 06/02-06/11/25 for LLE cellulitis with failure of outpatient treatment. Wound cultures grew Proteus and concern for ESBL per lab and MRSA. He completed 7 days of IV abx prior to DC home. He has declined LLE amputation He returned to [facility] ED on 06/25/25 for evaluation of hematuria, L foot drainage, diarrhea and fatigue. Found to have Norovirus and Enterococcus bacteremia. Hospital course complicated by hospital delirium on 07/14 Hospital-acquired delirium - Neurology evaluated - Started on QHS Zyprexa, continue to have increased confusion at night, pulling out IVs, more agitation, will increase Zyprexa to 10mg nightly, continue PRN Geodon. LLE Wound Infection w/Cellulitis Severe PAD History of right BKA, LLE revascularization and toe amputation Enterococcus faecium bacteremia - MRI L foot showed edema in the distal first and second metatarsal diaphyses at the resection margins, osteomyelitis is not excluded. CT angio left lower extremity revealed moderate focal narrowing at the junction of the SFA and the popliteal artery. 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 - LLE arterial dopplers abnormal waveforms suggest inflow disease. Moderate 60% stenosis in the left SFA, the left CHIP appears to be occluded filling vis collaterals retrograde - Blood cultures positive for Enterococcus faecium - ID following - on meropenem and Vancomycin - Vascular surgery consulted - follows with Dr. Marcano. He is s/p LLE excisional debridement and wound VAC application on 07/03/25. Patient continues to adamantly refuse amputation - PT wound care following - Continue Plavix / Eliquis - Appreciate palliative care assistance with pain management - patient is now agreeable to placement in SNF for abx, CM following Hyperkalemia - resolved - Potassium of 6.2 07/11 - s/p treatment. Entresto now on hold and K+ has been stable. Would stop Entresto at [place] Acute CAUTI and hematuria, POA History of BPH Chronic urinary retention with chronic De Los Santos catheter - Urine culture grew Yeast - H&H stable, resumed Eliquis 07/07 - Urology consulted - recommend continue De Los Santos and finasteride. - Needs OP referral to urology at [place] for long-term management Diarrhea Norovirus / C. Diff colonization - GI PCR panel with norovirus, C. difficile toxin is positive but antigen negative suggest colonization - CT imaging suggestive of proctitis - Continue antibiotics as above, ID following Acute on Chronic anemia, possible blood loss - Continue to monitor H&H, stable, resumed eliqius - Transfuse PRBC if hemoglobin <7 Type 2 diabetes Transient hypoglycemia - Previously well-controlled with A1c 7.6 (08/2024), A1c 7.82 - Continue Lantus 30 units QHS Seizure disorder History of pseudoseizures - Continue lamotrigine - Seizure like activity noted upon awaking from procedure on 07/03. Aborted with propofol and versed. My partner discussed with general neurology over the phone. Recommended PRN ativan for now and outpatient follow up with Dr. Anand as seizures are likely 2/2 anesthesia/procedure. S/p EEG. If seizure like activity recurs while inpatient, recommended loading with 1g of Keppra and placing general neurology consult. - No recurrence of pseudoseizure GERD without Esophagitis - PPI Bilateral Inguinal Hernia, incidental finding on CT - CT imaging revealed bilateral inguinal hernias, larger on the left containing a partial loop of sigmoid colon, without proximal dilatation. - General surgery consult; recommend watchful waiting, poor operative candidate for an elective procedure while asymptomatic, and has signed off Expected Discharge Location and Transportation: SNF Expected Discharge Expected Discharge Date: 07/23/2025; Expected Discharge Time: VTE Prophylaxis: Pharmacologic VTE prophylaxis orders are present. AM-PAC 6 Clicks Score (PT): 10 (07/20/25 1100) CODE STATUS: Code Status and Medical Interventions: CPR (Attempt to Resuscitate); Full Support Ordered at: 06/25/25 2310 Code Status (Patient has no pulse and is not breathing): CPR (Attempt to Resuscitate) Medical Interventions (Patient has pulse or is breathing): Full Support Level Of Support Discussed With: Patient Ana Reynolds DO 07/21/25 * Ana Reynolds DO - 07/20/2025 12:01 PM EST Images from the original note were not included. [facility] Medicine Services PROGRESS NOTE Patient Name: Trung Pool : 1955 Date of Admission: 06/25/2025 Primary Care Physician: Gustavo Mehta MD Subjective CC: f/u LLE HPI: Patient lying in bed. He states that today he has decided he wants to go home and does not wish to pursue amputation. Objective Vital Signs: Temp: [97.6 ??F (36.4 ??C)-97.8 ??F (36.6 ??C)] 97.6 ??F (36.4 ??C) Heart Rate: [75-90] 75 Resp: [14-18] 18 BP: (104-170)/(75-85) 152/75 Physical Exam: Constitutional: No acute distress, awake, alert, chronically ill appearing HENT: NCAT, mucous membranes moist Respiratory: Clear to auscultation bilaterally, respiratory effort normal Cardiovascular: RRR, no murmurs, rubs, or gallops Gastrointestinal: soft, nontender, nondistended Musculoskeletal: R AKA, L leg with left foot wound vac in place as well as bandage that was not removed today Psychiatric: Appropriate affect, cooperative Neurologic: Oriented x 3 but some mild confusion at times regarding current situation/hospital stay, speech clear, no focal deficits Skin: No rashes Results Reviewed: LAB RESULTS: Lab 07/20/25 0508 07/17/25 0548 07/16/25 0447 07/15/25 0432 07/14/25 0426 07/14/25 042 WBC 6.74 7.10 6.76 8.08 -- 8.27 HEMOGLOBIN 9.6* 9.3* 8.9* 8.9* -- 9.2* HEMATOCRIT 30.3* 31.1* 30.2* 30.1* -- 30.9* PLATELETS 228 211 185 210 -- 251 MCV 78.3* 79.1 80.7 80.9 -- 78.8* LACTATE -- -- -- -- 1.0 -- Lab 07/20/25 0508 07/19/25 0835 07/18/25 0337 07/17/25 0548 07/16/25 0447 07/15/25 043 SODIUM 136 -- 137 139 139 139 POTASSIUM 5.0 -- 5.2 5.2 4.9 4.8 CHLORIDE 107 -- 108* 109* 110* 111* CO2 19.5* -- 21.4* 19.1* 19.3* 18.8* ANION GAP 9.5 -- 7.6 10.9 9.7 9.2 BUN 22.6 -- 22.5 21.8 23.1* 25.4* CREATININE 0.81 -- 0.82 0.89 0.80 0.74* EGFR 94.3 -- 93.9 91.6 94.6 96.9 GLUCOSE 90 -- 148* 132* 134* 98 CALCIUM 8.7 -- 8.6 8.8 8.5* 8.6 MAGNESIUM -- 1.9 2.1 1.9 2.0 2.1 Lab 07/14/25 1517 07/14/25 0601 FIO2 21 21 CARBOXYHEMOGLOBIN (VENOUS) 1.3 1.1 Brief Urine Lab Results (Last result in the past 365 days) Color Clarity Blood Leuk Est Nitrite Protein CREAT Urine HCG 07/14/2552 Yellow Clear Trace Moderate (2+) Negative 30 mg/dL (1+) Microbiology Results Abnormal Procedure Component Value - Date/Time Urine Culture - Urine, Indwelling Urethral Catheter [[id number]] (Abnormal) Collected: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 Vancomycin HCl 1,250 mg in sodium chloride 0.9 % 250 mL VTB Status: Discontinued Ordering Provider: Osmany Mccann RPH 1,250 mg 200 mL/hr over 75 Minutes Intravenous Every 12 Hours 06/27/25 2100 06/27/25 0813 06/27/25 0813 Vancomycin HCl 1,250 mg in sodium chloride 0.9 % 250 mL VTB Status: Discontinued Ordering Provider: Osmany Mccann RPH 1,250 mg 200 mL/hr over 75 Minutes Intravenous Every 12 Hours 06/27/25 2100 06/28/25 0724 06/27/25 0856 vancomycin 2500 mg/500 mL 0.9% NS IVPB ([facility]) Ordering Provider: Osmany Mccann RPH 2,500 mg over 150 Minutes Intravenous Once 06/27/25 0945 06/27/25 1150 06/27/25 0808 vancomycin 2250 mg/500 mL 0.9% NS IVPB ([facility]) Status: Discontinued Ordering Provider: Osmany Mccann RPH 2,250 mg over 135 Minutes Intravenous Once 06/27/25 0900 06/27/25 0856 06/27/25 0739 Pharmacy to dose vancomycin Ordering Provider: Vaughn Hollingsworth, DO Not Applicable Continuous PRN 06/27/25 0739 07/11/25 0738 06/25/25 2312 DAPTOmycin (CUBICIN) 550 mg in sodium chloride 0.9 % 50 mL IVPB Status: Discontinued Ordering Provider: Amanda Bermudez MD 6 mg/kg ?? 94.6 kg (Adjusted) 100 mL/hr over 30 Minutes Intravenous Every 24 Hours 06/26/25 2100 06/27/25 0739 06/26/25 0847 meropenem (MERREM) 500 mg in sodium chloride 0.9 % 100 mL MBP Ordering Provider: Leonie Esquivel RPH 500 mg over 3 Hours Intravenous Every 6 Hours 06/26/25 1600 07/30/25 1959 06/25/25 2303 piperacillin-tazobactam (ZOSYN) 4.5 g IVPB in 100 mL NS MBP (CD) Status: Discontinued Ordering Provider: Amanda Bermudez MD 4.5 g over 4 Hours Intravenous Every 8 Hours 06/26/25 1200 06/26/25 0846 06/26/25 0831 vancomycin (VANCOCIN) capsule 125 mg Ordering Provider: Vaughn Hollingsworth DO Placed in Followed by Linked Group 125 mg Oral 4 Times Daily 06/26/25 1200 07/10/25 1159 06/26/25 0847 meropenem (MERREM) 500 mg in sodium chloride 0.9 % 100 mL MBP Ordering Provider: Duglas Andres MD 500 mg over 30 Minutes Intravenous Once 06/26/25 0945 06/26/25 1047 06/26/25 0833 micafungin sodium (MYCAMINE) 100 mg in sodium chloride 0.9 % 100 mL MBP Ordering Provider: Duglas Andres MD 100 mg Intravenous Once 06/26/25 0930 06/26/25 0850 06/26/25 0113 methenamine (HIPREX) tablet 1 g Ordering Provider: Vaughn Hollingsworth DO 1 g Oral 2 Times Daily With Meals 06/26/25 0800 06/25/25 2303 piperacillin-tazobactam (ZOSYN) 3.375 g IVPB in 100 mL NS MBP (CD) Status: Discontinued Ordering Provider: Amanda Bermudez MD 3.375 g over 30 Minutes Intravenous Once 06/26/25 0600 06/25/25 2312 06/25/25 2312 piperacillin-tazobactam (ZOSYN) 4.5 g IVPB in 100 mL NS MBP (CD) Ordering Provider: Amanda Bermudez MD 4.5 g over 30 Minutes Intravenous Once 06/26/25 0600 06/26/25 0600 06/25/25 2112 DAPTOmycin (CUBICIN) 550 mg in sodium chloride 0.9 % 50 mL IVPB Ordering Provider: Ally Jeffers APRN 6 mg/kg ?? 94.6 kg (Adjusted) 100 mL/hr over 30 Minutes Intravenous Once 06/25/25 2128 06/25/25 2307 06/25/25 2112 meropenem (MERREM) 1,000 mg in sodium chloride 0.9 % 100 mL MBP Ordering Provider: Ally Jeffers APRN 1,000 mg over 30 Minutes Intravenous Once 06/25/25212706/25/252236 Review of Systems 07/20/25 Constitutional-- No Fever, chills or sweats. Appetite good, and no malaise. No fatigue. Heent-- No new vision, hearing or throat complaints. No epistaxis or oral sores. Denies odynophagiaor dysphagia. No flashers, floaters or eye pain. No odynophagia or dysphagia. No headache, photophobia or neck stiffness. CV-- No chest pain, palpitation or syncope Resp-- No SOB/cough/Hemoptysis GI- No hematochezia, melena, or hematemesis. Denies jaundice or chronic liver disease. -- chronic De Los Santos catheter, denies flank pain Lymph- no swollen lymph nodes in neck/axilla or groin. Heme- No active bruising or bleeding; no Hx of DVT or PE. MS-- no swelling or pain in the bones or joints of arms/legs. No new back pain. Neuro-- No acute focal weakness or numbness in the arms or legs. Chronically debilitated Full 12 point review of systems reviewed and negative otherwise for acute complaints, except for above Physical Exam: Vital Signs BP 170/81 (BP Location: Left arm, Patient Position: Lying) Pulse 76 Temp 97.8 ??F (36.6 ??C) (Axillary) Resp 14 Ht 182.9 cm (72 ) Wt 129 kg (284 lb 6.3 oz) SpO2 98% BMI 38.57 kg/m?? GENERAL: sleepy but arousable and interacting HEENT: Normocephalic, atraumatic. No conjunctival injection. No icterus. Oropharynx clear without evidence of thrush or exudate. No evidence of periodontal disease. NECK: Supple without nuchal rigidity. No mass. HEART: RRR; No murmur, rubs, gallops. LUNGS: diminished at bases; Clear to auscultation bilaterally without wheezing, rales, rhonchi. Normal respiratory effort. Nonlabored. No dullness. ABDOMEN: Soft, nontender, nondistended. Positive bowel sounds. No rebound or guarding. NO mass or HSM. EXT: see below : With De [place] Santos catheter. MSK: FROM without joint effusions noted arms/legs. SKIN: Warm and dry without cutaneous eruptions on Inspection/palpation. NEURO: sleepy Left foot amputation noted surgical site covered. Vague erythema LLE but no discrete mass bulge or fluctuance. No crepitus or bulla Right side amputation no obvious open wound or new redness/induration Laboratory Data Results from last 7 days Lab Units 07/20/25 0508 07/17/25 0548 07/16/25 0447 WBC 10*3/mm3 6.74 7.10 6.76 HEMOGLOBIN g/dL 9.6* 9.3* 8.9* HEMATOCRIT % 30.3* 31.1* 30.2* PLATELETS 10*3/mm3 228 211 185 Results from last 7 days Lab Units 07/20/25 0508 SODIUM mmol/L 136 POTASSIUM mmol/L 5.0 CHLORIDE mmol/L 107 CO2 mmol/L 19.5* BUN mg/dL 22.6 CREATININE mg/dL 0.81 GLUCOSE mg/dL 90 CALCIUM mg/dL 8.7 Estimated Creatinine Clearance: 116.2 mL/min (by C-G formula based on SCr of 0.81 mg/dL). Microbiology: Radiology: Imaging Results (Last 72 Hours) No results found for the last 72 hours. Impression: --acute left lower leg/foot cellulitis and wound infection, prior culture July 2024 with ESBL Klebsiella pneumoniae and pseudomonas aeruginosa, pseudomonas was sensitive to Merrem per microbiology lab at [facility]. Cx at [facility] as below; He has had multiple surgeries and multiple p ractitioners recommend higher level amputation which he has refused. On prior admissions, he has refused outpatient IV antibiotics and he has refused placement for longer durations of IV antibiotics.This refusal of care has placed him at increased risk for poor outcome. Earlier in 2024 he was discharged to the care of Dr. Oneal, his outpatient ID doctor and Dr Faust his automobile travel club counselor for furthercare/workup ; readmission May 2025 and June 2025 with acute worsening in redness/drainageto left lower extremity. Surgery as above and ongoing IV abx, admission associated with bacteremia and mixed/MDR organisms; High risk for further serious morbidity and other serious sequela including persistent/recurrent or nonhealing wounds, persistent/progressive or recurrent infection and risk for further functional/limb loss, higher-level amputation and other dire consequences including sepsis/mortalityetc. he remains opposed to amputation; he voices understanding his poor prognosis overallincluding risks for dire consequences; past Cx with MRSA/PSA/ESBL at prior admissions; culture June 02, 2025 with Proteus/MRSA/PSA; Cx June 2025 below; further imaging no definitive osteomyelitis but also unable to exclude per radiology at distal first/second [facility]; surgery with I&D 07/03 but no further bone debridement/amputation --E Faecium bacteremia ; NOT vanco resistant; ?foot source -v- other --Acute hematuria/UTI with chronic indwelling De [place] Santos catheter. Proteus in culture previously; nursing reports De [place] Santos catheter change earlier in admission; repeat urine 07/14 with yeast, ?colonizer -v- evolving UTI, de los santos to change and empiric mycamine x 1 then monitor; if stronger evidence for yeast as pathogen then may need ampho b prooduct if not responding to echinocnadin given Hx QT prolongation --Acute diarrhea, Norovirus + and C. Difficile PCR +, although toxin antigen negative earlier in stay. He has risk for active disease and does have symptomatology and requires antibiotics for other processes, and therefore oral vancomycin added although unable to definitively confirm active diseasewith toxin antigen negative ( although risk for false negative); supportive care ongoing --MRSA surveillance + --Peripheral arterial disease by past evaluation of vascular team in addition to history DVT. 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 He does not have enough assistance at home to do IV abx at home per him ; case management and palliative teams following; home at this point would be palliative/comfort care plan or AMA --mycamine IV for now;de los santos change again 07/16 wound culture June 02, 2025 with Proteus /MRSA, PSA urine culture June 02, 2025 E Coli/ESBL Proteus urine culture 06/25 proteus blood culture 06/25 E Faecium vanco/amp sensitive; dapto sens but dose dependent wound culture 06/25 (surface) with MRSA and ESBL proteus and morganella --Check/review labs cultures and scans --Partial history Per nursing staff --d/w medicine team/ multidisciplinary team with respect to complexity above/below [...] further serious morbidity and other serious sequela I am out of town until Wednesday, call my partners if needed sooner This visit included the following complex service elements: Complex medical decision-making associated with antimicrobial prescribing. Managed infection treatment protocol associated with transitions of care for this complex patient. Duglas Andres MD 07/20/2025 [1] Allergies Allergen Reactions Keppra [Levetiracetam] Other (See Comments) Acute psychosis Bupropion Unknown (See Comments) Codeine Nausea Only Hydrocodone Unknown (See Comments) Ketorolac Tromethamine Unknown (See Comments) [2] Current Facility-Administered Medications Medication Dose Route Frequency Provider Last Rate Last Admin acetaminophen (TYLENOL) tablet 650 mg 650 mg Oral Q4H PRN Amanda Bermudez MD 650 mg at 06/29/25 0343 Or acetaminophen (TYLENOL) 160 MG/5ML oral solution 650 mg 650 mg Oral Q4H PRN Amanda Bermudez MD Or acetaminophen (TYLENOL) suppository 650 mg 650 mg Rectal Q4H PRN Amanda Bermudez MD aluminum-magnesium hydroxide-simethicone (MAALOX MAX) 400-400-40 MG/5ML suspension 15 mL 15 mL [id number] PRN Amanda Bermudez MD [Held by provider] apixaban (ELIQUIS) tablet 5 mg 5 mg Oral BID Amanda Bermudez MD ascorbic acid (VITAMIN C) tablet 500 mg 500 mg Oral Daily Amanda Bermudez MD 500 mg at 07/01/25 0830 baclofen (LIORESAL) tablet 10 mg 10 mg Oral Q12H Amanda Bermudez MD 10 mg at 07/01/25 2144 sennosides-docusate (PERICOLACE) 8.6-50 MG per tablet 2 tablet 2 tablet Oral BID PRN Amanda Bermudez MD And polyethylene glycol (MIRALAX) packet 17 g 17 g Oral Daily PRN Amanda Bermudez MD And bisacodyl (DULCOLAX) EC tablet 5 mg 5 mg Oral Daily PRN Amanda Bermudez MD And bisacodyl (DULCOLAX) suppository 10 mg 10 mg Rectal Daily PRN Amanda Bermudez MD Calcium Replacement - Follow Nurse / BPA Driven Protocol Not Applicable PRN Amanda Bermudez MD carvedilol (COREG) tablet 3.125 mg 3.125 mg Oral BID With Meals Amanda Bermudez MD 3.125 mg at 07/01/25 1712 clopidogrel (PLAVIX) tablet 75 mg 75 mg Oral Daily Amanda Bermudez MD 75 mg at 07/01/25 0830 famotidine (PEPCID) tablet 20 mg 20 mg Oral BID AC Arnoldo Crews, Amanda 20 mg at 07/02/25 0649 finasteride (PROSCAR) tablet 5 mg 5 mg Oral Daily Amanda Bermudez MD 5 mg at 07/01/25 0830 folic acid (FOLVITE) tablet 1 mg 1 mg Oral Daily Amanda Bermudez MD 1 mg at 07/01/25 0830 gabapentin (NEURONTIN) capsule 300 mg 300 mg Oral Q8H Milena Jo APRN 300 mg at 07/02/25 0649 heparin (porcine) 5000 UNIT/ML injection 5,000 Units 5,000 Units Subcutaneous Q8H Lupe Albert APRN 5,000 Units at 07/02/25 0649 influenza vac split high-dose (FLUZONE HIGH DOSE) injection 0.5 mL 0.5 mL Intramuscular During Hospitalization Kris Boston DO insulin glargine (LANTUS, SEMGLEE) injection 56 Units 56 Units Subcutaneous Nightly Amanda Bermudez MD 56 Units at 07/01/25 214 ipratropium-albuterol (DUO-NEB) nebulizer solution 3 mL 3 mL Nebulization Q6H PRN Amanda Bermudez MD lamoTRIgine (LaMICtal) tablet 100 mg 100 mg Oral Daily Amanda Bermudez MD 100 mg at 07/01/25 0830 lamoTRIgine (LaMICtal) tablet 250 mg 250 mg Oral Nightly Amanda Bermudez MD 250 mg at 07/01/25 2144 Magnesium Cardiology Dose Replacement - Follow Nurse / BPA Driven Protocol Not Applicable PRN Amanda Bermudez MD meropenem (MERREM) 500 mg in sodium chloride 0.9 % 100 mL MBP 500 mg Intravenous Q6H Duglas Andres MD 500 mg at 07/02/25 0359 methenamine (HIPREX) tablet 1 g 1 g Oral BID With Meals Amanda Bermudez MD 1 g at 07/01/25 1713 multivitamin with minerals 1 tablet 1 tablet Oral Daily Amanda Bermudez MD 1 tablet at 07/01/25 0830 naloxone (NARCAN) injection 0.4 mg 0.4 mg Intravenous Q5 Min PRN Amanda Bermudez MD nitroglycerin (NITROSTAT) SL tablet 0.4 mg 0.4 mg Sublingual Q5 Min PRN Amanda Bermudez MD ondansetron (ZOFRAN) injection 4 mg 4 mg Intravenous Q6H PRN Amanda Bermudez MD 4 mg at 06/29/25 1646 oxyCODONE-acetaminophen (PERCOCET) 10-325 MG per tablet 1 tablet 1 tablet Oral Q6H PRN Kris Boston DO 1 tablet at 07/02/25 0125 Pharmacy to dose vancomycin Not Applicable Continuous PRN Duglas Andres MD Phosphorus Replacement - Follow Nurse / BPA Driven Protocol Not Applicable PRN Amanda Bermudez MD Potassium Replacement - Follow Nurse / BPA Driven Protocol Not Applicable PRN Amanda Bermudez MD sacubitril-valsartan (ENTRESTO) 24-26 MG tablet 1 tablet 1 tablet Oral BID Amanda Bermudez MD 1 tablet at 07/01/25 2144 sodium chloride 0.9 % flush 10 mL 10 mL Intravenous PRN Ally Jeffers APRN sodium chloride 0.9 % flush 10 mL 10 mL Intravenous Q12H Amanda Bermudez MD 10 mL at 07/01/25 0832 sodium chloride 0.9 % flush 10 mL 10 mL Intravenous PRN Amanda Bermudez MD sodium chloride 0.9 % flush 10 mL 10 mL Intravenous Q12H Duglas Andres MD 10 mL at 07/01/25 2145 sodium chloride 0.9 % flush 10 mL 10 mL Intravenous PRN Duglas Andres MD sodium chloride 0.9 % flush 20 mL 20 mL Intravenous PRN Duglas Andres MD sodium chloride 0.9 % infusion 40 mL 40 mL Intravenous PRN Duglas Andres MD vancomycin (VANCOCIN) 1,000 mg in sodium chloride 0.9 % 250 mL IVPB-VTB 1,000 mg Intravenous Q12H Osmany Mccann, RPH 250 mL/hr at 07/01/25 214 1,000 mg at 07/01/252142 vancomycin (VANCOCIN) capsule 125 mg 125 mg Oral 4x Daily Duglas Andres MD 125 mg at Followed by [START ON 07/10/2025] vancomycin (VANCOCIN) capsule 125 mg 125 mg Oral TID Dgulas Andres MD Followed by [START ON 07/17/2025] vancomycin (VANCOCIN) capsule 125 mg 125 mg Oral BID Duglas Andres MD Followed by [START ON 07/25/2025] vancomycin (VANCOCIN) capsule 125 mg 125 mg Oral Daily Duglas Andres MD Followed by [START ON 08/01/2025] vancomycin (VANCOCIN) capsule 125 mg 125 mg Oral Weekly Duglas Andres MD * Mere Armas PA-C - 07/19/2025 2:59 PM EST Images from the original note were not included. [facility] Medicine Services PROGRESS NOTE Patient Name: Trung Pool : [id number] Date of Admission: 06/25/2025 Primary Care Physician: Gustavo Mehta MD Subjective CC: f/u JUAN HPI: Diagonal in bed - says he is trying to sit on side of bed. Patient was agitated and suspicious during my visit with him. Nursing did note he got behind on pain meds this AM and has been in more pain than usual. Awaiting response from vascular team about BKA Objective Vital Signs: Temp: [97.5 ??F (36.4 ??C)-98.6 ??F (37 ??C)] 97.5 ??F (36.4 ??C) Heart Rate: [72-80] 79 Resp: [18] 18 BP: (101-147)/(64-89) 101/89 Physical Exam: Constitutional: No acute distress, awake, alert and conversant. Laying in bed. Chronically ill appearing. HENT: NCAT, mucous membranes moist Respiratory: Clear to auscultation bilaterally, normal respiratory effort on RA Cardiovascular: RRR Gastrointestinal: Positive bowel sounds, soft, nontender, nondistended Musculoskeletal: R AKA. XOCHILTE is dressed with wound vac in place - did not remove for exam Psychiatric: Agitated affect / some paranoid thinking, cooperative with exam Neurologic: Oriented x 3 - situational confusion noted regarding his current hospitalization and events of the day, moves all extremities spontaneously without focal deficits, speech clear Results Reviewed: LAB RESULTS: Lab 07/17/[id number]/[id number]/14/256 07/14/25 0425 07/13/25 0808 WBC 7.10 6.76 8.08 -- 8.27 6.58 HEMOGLOBIN 9.3* 8.9* 8.9* -- 9.2* 9.4* HEMATOCRIT 31.1* 30.2* 30.1* -- 30.9* 30.1* PLATELETS 211 185 210 -- 251 256 MCV 79.1 80.7 80.9 -- 78.8* 77.2* LACTATE -- -- -- 1.0 -- -- Lab 07/19/25 0835 07/18/25 0337 07/17/25 0548 07/16/[id number]/15/[id number]/14/25424 SODIUM -- 137 139 139 139 141 POTASSIUM -- 5.2 5.2 4.9 4.8 4.9 CHLORIDE -- 108* 109* 110* 111* 111* CO2 -- 21.4* 19.1* 19.3* 18.8* 19.8* ANION GAP -- 7.6 10.9 9.7 9.2 10.2 BUN -- 22.5 21.8 23.1* 25.4* 37.3* CREATININE -- 0.82 0.89 0.80 0.74* 1.17 EGFR -- 93.9 91.6 94.6 96.9 66.6 GLUCOSE -- 148* 132* 134* 98 67 CALCIUM -- 8.6 8.8 8.5* 8.6 8.6 MAGNESIUM 1.9 2.1 1.9 2.0 2.1 2.3 Lab 07/14/25 1517 07/14/25 0601 FIO2 21 21 CARBOXYHEMOGLOBIN (VENOUS) 1.3 1.1 Brief Urine Lab Results (Last result in the past 365 days) Color Clarity Blood Leuk Est Nitrite Protein CREAT Urine HCG 07/14/2552 Yellow Clear Trace Moderate (2+) Negative 30 mg/dL (1+) Microbiology Results Abnormal Procedure Component Value - Date/Time Urine Culture - Urine, Indwelling Urethral Catheter [[id number]] (Abnormal) Collected: 07/14/2552 Lab Status: Final result Specimen: Urine from Indwelling Urethral Catheter Updated: 07/15/25 1329 Urine Culture Yeast isolated Narrative: No further workup for yeast Colonization of the urinary tract without infection is common. Treatment is discouraged unless the patient is symptomatic, , or undergoing an invasive urologic procedure. Urine Culture - Urine, Indwelling Urethral Catheter [[id number]] (Abnormal) (Susceptibility) Collected: 06/25/252000 Lab Status: Final result Specimen: Urine from Indwelling Urethral Catheter Updated: 06/30/25 1001 Urine Culture >100,000 CFU/mL Proteus mirabilis Narrative: Colonization of the urinary tract without infection is common. Treatment is discouraged unless the patient is symptomatic, , or undergoing an invasive urologic procedure. Susceptibility Proteus mirabilis MURRAY Amoxicillin + Clavulanate Susceptible Ampicillin Resistant Ampicillin + Sulbactam Intermediate Cefazolin (Urine) Resistant Cefepime Resistant Ceftazidime Susceptible Ceftriaxone Resistant Cefuroxime axetil Resistant Ciprofloxacin Resistant Gentamicin Susceptible Levofloxacin Resistant Nitrofurantoin Resistant Piperacillin + Tazobactam Susceptible Trimethoprim + Sulfamethoxazole Resistant Blood Culture - Blood, Hand, Right [[id number]] (Abnormal) (Susceptibility) Collected: 06/25/252029 Lab Status: Edited Result - FINAL Specimen: Blood from Hand, Right Updated: 06/29/25 0713 Blood Culture Enterococcus faecium Comment: Infectious disease consultation is highly recommended. Isolated from Anaerobic Bottle Gram Stain Anaerobic Bottle Gram positive cocci in chains Narrative: Less than seven (7) mL's of blood was collected. Insufficient quantity may yield false negative results. requested linezolid & daptomycin 06/28/25 Susceptibility Enterococcus faecium MURRAY Method Not Specified Ampicillin Susceptible Daptomycin Susceptible dose dependent Gentamicin High Level Synergy Susceptible Linezolid Susceptible (C) [1] Vancomycin Susceptible [1] Appended report. These results have been appended to a previously final verified report. Wound Culture - Swab, Foot, Left [[id number]] (Abnormal) (Susceptibility) Collected: 06/25/25 181 Lab Status: Final result Specimen: Swab from Foot, Left Updated: 06/29/25 0645 Wound Culture Heavy growth (4+) Staphylococcus aureus, MRSA Comment: Methicillin resistant Staphylococcus aureus, Patient may be an isolation risk. Moderate growth (3+) Morganella morganii ssp morganii Moderate growth (3+) Proteus mirabilis ESBL Comment: Consider infectious disease consult. Susceptibility results may not correlate to clinical outcomes. Gram Stain Few (2+) WBCs seen Few (2+) Gram positive cocci in pairs, chains and clusters Few (2+) Gram negative bacilli Susceptibility Staphylococcus aureus, MRSA MURRAY Clindamycin Susceptible Erythromycin Resistant Oxacillin Resistant Rifampin Susceptible Tetracycline Susceptible Trimethoprim + Sulfamethoxazole Resistant Vancomycin Susceptible Susceptibility Morganella morganii ssp morganii MURRAY Method Not Specified Amoxicillin + Clavulanate Resistant Ampicillin Resistant Ampicillin + Sulbactam Resistant Cefazolin (Non Urine) Resistant Cefepime Susceptible Cefotaxime Susceptible Ceftazidime Susceptible Cefuroxime axetil Resistant Ciprofloxacin Resistant Gentamicin Susceptible Levofloxacin Resistant Piperacillin + Tazobactam Susceptible Tetracycline Susceptible Trimethoprim + Sulfamethoxazole Resistant Susceptibility Proteus mirabilis ESBL MURRAY Ciprofloxacin Resistant Ertapenem Susceptible Levofloxacin Resistant Meropenem Susceptible Tetracycline Resistant Trimethoprim + Sulfamethoxazole Resistant Susceptibility Comments Morganella morganii ssp morganii Cefotaxime susceptibility can be used as a surrogate for ceftriaxone susceptibility Proteus mirabilis ESBL With the exception of urinary-sourced infections, aminoglycosides should not be used as monotherapy. Blood Culture ID, PCR - Blood, Hand, Right [[id number]] (Abnormal) Collected: 06/25/252029 Lab Status: Final result Specimen: Blood from Hand, Right Updated: 06/26/252101 BCID, PCR Enterococcus faecium. Zee/B (vancomycin resistance gene) not detected. Identification byBCID2 PCR. BOTTLE TYPE Anaerobic Bottle Narrative: Infectious disease consultation is highly recommended to rule out distant foci of infection. MRSA Screen, PCR (Inpatient) - Swab, Nares [[id number]] (Abnormal) Collected: 06/26/2545 Lab Status: Final result Specimen: Swab from Nares Updated: 06/26/25 0850 MRSA PCR Positive Narrative: The negative predictive value of this diagnostic test is high and should only be used to consider de-escalating anti-MRSA therapy. A positive result may indicate colonization with MRSA and must be correlated clinically. Gastrointestinal Panel, PCR - Stool, Per Rectum [[id number]] (Abnormal) Collected: 06/26/2545 Lab Status: Final result Specimen: Stool from Per Rectum Updated: 06/26/25 0850 Campylobacter Not Detected Plesiomonas shigelloides Not Detected Salmonella Not Detected Vibrio Not Detected Vibrio cholerae Not Detected Yersinia enterocolitica Not Detected Enteroaggregative E. coli (EAEC) Not Detected Enteropathogenic E. coli (EPEC) Not Detected Enterotoxigenic E. coli (ETEC) lt/st Not Detected Shiga-like toxin-producing E. coli (STEC) stx1/stx2 Not Detected Shigella/Enteroinvasive E. coli (EIEC) Not Detected Cryptosporidium Not Detected Cyclospora cayetanensis Not Detected Entamoeba histolytica Not Detected Giardia lamblia Not Detected Adenovirus F40/41 Not Detected Astrovirus Not Detected Norovirus GI/GII Detected Comment: If a positive Norovirus result is inconsistent with clinical presentation, the positive Norovirus result should be confirmed using another method. Rotavirus A Not Detected Sapovirus (I, II, IV or V) Not Detected Clostridioides difficile Toxin - Stool, Per Rectum [[id number]] (Abnormal) Collected: 06/26/2545 Lab Status: Final result Specimen: Stool from Per Rectum Updated: 06/26/25 0755 Narrative: The following orders were created for panel order Clostridioides difficile Toxin - Stool, Per Rectum. Procedure Abnormality Status --------- ------ Clostridioides difficile...[[id number]] Abnormal Final result Please view results for these tests on the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 neck/axilla or groin. Heme- No active bruising or bleeding; no Hx of DVT or PE. MS-- no swelling or pain in the bones or joints of arms/legs. No new back pain. Neuro-- No acute focal weakness or numbness in the arms or legs. Chronically debilitated Full 12 point review of systems reviewed and negative otherwise for acute complaints, except for above Physical Exam: Vital Signs BP 147/64 (BP Location: Right arm, Patient Position: Lying) Pulse 80 Temp 98.6 ??F (37 ??C) (Oral) Resp 18 Ht 182.9 cm (72 ) Wt 128 kg (282 lb 6.6 oz) SpO2 96% BMI 38.30 kg/m?? GENERAL: sleepy but arousable and interacting HEENT: Normocephalic, atraumatic. No conjunctival injection. No icterus. Oropharynx clear without evidence of thrush or exudate. No evidence of periodontal disease. NECK: Supple without nuchal rigidity. No mass. HEART: RRR; No murmur, rubs, gallops. LUNGS: diminished at bases; Clear to auscultation bilaterally without wheezing, rales, rhonchi. Normal respiratory effort. Nonlabored. No dullness. ABDOMEN: Soft, nontender, nondistended. Positive bowel sounds. No rebound or guarding. NO mass or HSM. EXT: see below : With De Los Santos catheter. MSK: FROM without joint effusions noted arms/legs. SKIN: Warm and dry without cutaneous eruptions on Inspection/palpation. NEURO: sleepy Left foot amputation noted surgical site covered. Vague erythema LLE but no discrete mass bulge or fluctuance. No crepitus or bulla Right side amputation no obvious open wound or new redness/induration Laboratory Data Results from last 7 days Lab Units 07/17/25 0548 07/16/25 0447 07/15/25 0432 WBC 10*3/mm3 7.10 6.76 8.08 HEMOGLOBIN g/dL 9.3* 8.9* 8.9* HEMATOCRIT % 31.1* 30.2* 30.1* PLATELETS 10*3/mm3 211 185 210 Results from last 7 days Lab Units 07/18/25 0337 SODIUM mmol/L 137 POTASSIUM mmol/L 5.2 CHLORIDE mmol/L 108* CO2 mmol/L 21.4* BUN mg/dL 22.5 CREATININE mg/dL 0.82 GLUCOSE mg/dL 148* CALCIUM mg/dL 8.6 Estimated Creatinine Clearance: 114.3 mL/min (by C-G formula based on SCr of 0.82 mg/dL). Microbiology: Radiology: Imaging Results (Last 72 Hours) No results found for the last 72 hours. Impression: --acute left lower leg/foot cellulitis and wound infection, prior culture July 2024 with ESBL Klebsiella pneumoniae and pseudomonas aeruginosa, pseudomonas was sensitive to Merrem per microbiology lab at [facility]. Cx at [facility] as below; He has had multiple surgeries and multiple p ractitioners recommend higher level amputation which he has refused. On prior admissions, he has refused outpatient IV antibiotics and he has refused placement for longer durations of IV antibiotics.This refusal of care has placed him at increased risk for poor outcome. Earlier in 2024 he was discharged to the care of Dr. Oneal, his outpatient ID doctor and Dr Faust his automobile travel club counselor for furthercare/workup ; readmission May 2025 and June 2025 with acute worsening in redness/drainage to left lower extremity. Surgery as above and ongoing IV abx, admission associated with bacteremia and mixed/MDR organisms; High risk for further serious morbidity and other serious sequela including p ersistent/recurrent or nonhealing wounds, persistent/progressive or recurrent infection and risk for further functional/limb loss, higher-level amputation and other dire consequences including sepsis/mortalityetc. he remains opposed to amputation; he voices understanding his poor prognosis overall including risks for dire consequences; past Cx with MRSA/PSA/ESBL at prior admissions; culture June 02, 2025 with Proteus/MRSA/PSA; Cx June 2025 below; further imaging no definitive osteomyelitis but also unable to exclude per radiology at distal first/second MT; surgery with I&D 07/03 but no further bone debridement/amputation --E Faecium bacteremia ; NOT vanco resistant; ?foot source -v- other --Acute hematuria/UTI with chronic indwelling De Los Santos catheter. Proteus in culture previously; nursing reports De Los Santos catheter change earlier in admission; repeat urine 07/14 with yeast, ?colonizer -v- evolving UTI, de los santos to change and empiric mycamine x 1 then monitor; if stronger evidence for yeast as pathogen then may need ampho b prooduct if not responding to echinocnadin given Hx QT prolongation --Acute diarrhea, Norovirus + and C. Difficile PCR +, although toxin antigen negative earlier in stay. He has risk for active disease and does have symptomatology and requires antibiotics for other processes, and therefore oral vancomycin added although unable to definitively confirm active diseasewith toxin antigen negative ( although risk for false negative); supportive care ongoing --MRSA surveillance + --Peripheral arterial disease by past evaluation of vascular team in addition to history DVT. 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 He does not have enough assistanceat home to do IV abx at home per him; case management and palliative teams following --mycamine IV for now;de los santos change again 07/16 wound culture June 02, 2025 with Proteus /MRSA, PSA urine culture June 02, 2025 E Coli/ESBL Proteus urine culture 06/25 proteus blood culture 06/25 E Faecium vanco/amp sensitive; dapto sens but dose dependent wound culture 06/25 (surface) with MRSA and ESBL proteus and morganella --Check/review labs cultures and scans --Partial history Per nursing staff --d/w medicine team/ multidisciplinary team with respect to complexity above/below [...] transitions of care for this complex patient. Duglas Andres MD 07/19/2025 [1] Allergies Allergen Reactions Keppra [Levetiracetam] Other (See Comments) Acute psychosis Bupropion Unknown (See Comments) Codeine Nausea Only Hydrocodone Unknown (See Comments) Ketorolac Tromethamine Unknown (See Comments) [2] Current Facility-Administered Medications Medication Dose Route Frequency Provider Last Rate Last Admin acetaminophen (TYLENOL) tablet 650 mg 650 mg Oral Q4H PRN Amanda Bermudez MD 650 mg at 06/29/25 0343 Or acetaminophen (TYLENOL) 160 MG/5ML oral solution 650 mg 650 mg Oral Q4H PRN Amanda Bermudez MD Or acetaminophen (TYLENOL) suppository 650 mg 650 mg Rectal Q4H PRN Amanda Bermudez MD aluminum-magnesium hydroxide-simethicone (MAALOX MAX) 400-400-40 MG/5ML suspension 15 mL 15 mL [id number] PRN Amanda Bermudez MD [Held by provider] apixaban (ELIQUIS) tablet 5 mg 5 mg Oral BID Amanda Bermudez MD ascorbic acid (VITAMIN C) tablet 500 mg 500 mg Oral Daily Amanda Bermudez MD 500 mg at 07/01/25 0830 baclofen (LIORESAL) tablet 10 mg 10 mg Oral Q12H Amanda Bermudez MD 10 mg at 07/01/25 2144 sennosides-docusate (PERICOLACE) 8.6-50 MG per tablet 2 tablet 2 tablet Oral BID PRN Amanda Bermudez MD And polyethylene glycol (MIRALAX) packet 17 g 17 g Oral Daily PRN Amanda Bermudez MD And bisacodyl (DULCOLAX) EC tablet 5 mg 5 mg Oral Daily PRN Amanda Bermudez MD And bisacodyl (DULCOLAX) suppository 10 mg 10 mg Rectal Daily PRN Amanda Bermudez MD Calcium Replacement - Follow Nurse / BPA Driven Protocol Not Applicable PRN Amanda Bermudez MD carvedilol (COREG) tablet 3.125 mg 3.125 mg Oral BID With Meals Amanda Bermudez MD 3.125 mg at 07/01/25 1712 clopidogrel (PLAVIX) tablet 75 mg 75 mg Oral Daily Amanda Bermudez MD 75 mg at 07/01/25 0830 famotidine (PEPCID) tablet 20 mg 20 mg Oral BID AC Arnoldo Crews PharmD 20 mg at 07/02/25 0649 finasteride (PROSCAR) tablet 5 mg 5 mg Oral Daily Amanda Bermudez MD 5 mg at 07/01/25 0830 folic acid (FOLVITE) tablet 1 mg 1 mg Oral Daily Amanda Bermudez MD 1 mg at 07/01/25 0830 gabapentin (NEURONTIN) capsule 300 mg 300 mg Oral Q8H Milena Jo APRN 300 mg at 07/02/25 0649 heparin (porcine) 5000 UNIT/ML injection 5,000 Units 5,000 Units Subcutaneous Q8H Lupe Albert APRN 5,000 Units at 07/02/25 0649 influenza vac split high-dose (FLUZONE HIGH DOSE) injection 0.5 mL 0.5 mL Intramuscular During Hospitalization Kris Boston DO insulin glargine (LANTUS, SEMGLEE) injection 56 Units 56 Units Subcutaneous Nightly Amanda Bermudez MD 56 Units at 07/01/25 2145 ipratropium-albuterol (DUO-NEB) nebulizer solution 3 mL 3 mL Nebulization Q6H PRN Amanda Bermudez MD lamoTRIgine (LaMICtal) tablet 100 mg 100 mg Oral Daily Amanda Bermudez MD 100 mg at 07/01/25 0830 lamoTRIgine (LaMICtal) tablet 250 mg 250 mg Oral Nightly Amanda Bermudez MD 250 mg at 07/01/25 2144 Magnesium Cardiology Dose Replacement - Follow Nurse / BPA Driven Protocol Not Applicable PRN Amanda Bermudez MD meropenem (MERREM) 500 mg in sodium chloride 0.9 % 100 mL MBP 500 mg Intravenous Q6H Duglas Andres MD 500 mg at 07/02/25 0359 methenamine (HIPREX) tablet 1 g 1 g Oral BID With Meals Amanda Bermudez MD 1 g at 07/01/25 1713 multivitamin with minerals 1 tablet 1 tablet Oral Daily Amanda Bermudez MD 1 tablet at 07/01/25 0830 naloxone (NARCAN) injection 0.4 mg 0.4 mg Intravenous Q5 Min PRN Amanda Berumdez MD nitroglycerin (NITROSTAT) SL tablet 0.4 mg 0.4 mg Sublingual Q5 Min PRN Amanda Bermudez MD ondansetron (ZOFRAN) injection 4 mg 4 mg Intravenous Q6H PRN Amanda Bermudez MD 4 mg at 06/29/25 1646 oxyCODONE-acetaminophen (PERCOCET) 10-325 MG per tablet 1 tablet 1 tablet Oral Q6H PRN Kris Boston DO 1 tablet at 07/02/25 0125 Pharmacy to dose vancomycin Not Applicable Continuous PRN Duglas Andres MD Phosphorus Replacement - Follow Nurse / BPA Driven Protocol Not Applicable PRN Amanda Bermudez MD Potassium Replacement - Follow Nurse / BPA Driven Protocol Not Applicable PRN Amanda Bermudez MD sacubitril-valsartan (ENTRESTO) 24-26 MG tablet 1 tablet 1 tablet Oral BID Amanda Bermudez MD 1 tablet at 07/01/25 2144 sodium chloride 0.9 % flush 10 mL 10 mL Intravenous PRN Ally Jeffers V, DIABETES NURSE sodium chloride 0.9 % flush 10 mL 10 mL Intravenous Q12H Amanda Bermudez MD 10 mL at 07/01/25 0832 sodium chloride 0.9 % flush 10 mL 10 mL Intravenous PRN Amanda Bermudez MD sodium chloride 0.9 % flush 10 mL 10 mL Intravenous Q12H Duglas Andres MD 10 mL at 07/01/25 2145 sodium chloride 0.9 % flush 10 mL 10 mL Intravenous PRN Duglas Andres MD sodium chloride 0.9 % flush 20 mL 20 mL Intravenous PRN Duglas Andres MD sodium chloride 0.9 % infusion 40 mL 40 mL Intravenous PRN Duglas Andres MD vancomycin (VANCOCIN) 1,000 mg in sodium chloride 0.9 % 250 mL IVPB-VTB 1,000 mg Intravenous Q12H Osmany Mccann, RPH 250 mL/hr at 07/01/252142 1,000 mg at 07/01/252142 vancomycin (VANCOCIN) capsule 125 mg 125 mg Oral 4x Daily Duglas Andres MD 125 mg at Followed by [START ON 07/10/2025] vancomycin (VANCOCIN) capsule 125 mg 125 mg Oral TID Duglas Andres MD Followed by [START ON 07/17/2025] vancomycin (VANCOCIN) capsule 125 mg 125 mg Oral BID Duglas Andres MD Followed by [START ON 07/25/2025] vancomycin (VANCOCIN) capsule 125 mg 125 mg Oral Daily Duglas Andres MD Followed by [START ON 08/01/2025] vancomycin (VANCOCIN) capsule 125 mg 125 mg Oral Weekly Duglas Andres MD * Annie Huber, MS,RD,LD - 07/18/2025 1:59 PM EST Patient Name: Trung Pool Date of : 1955 Admission date: 06/25/2025 Reason for Encounter: Follow-up/Progress Note [facility] Clinical Nutrition Assessment Subjective Subjective Information 07/18 Pt eating lunch at time of visit, pt states he's eating well and still drinking Boost GC BID. Pt does not have any nutrition concerns or needs. 07/10 Pt resting in bed, RN at bedside. Pt states his appetite is the same, endorses drinking Boost BID. 07/04 Spoke with pt at bedside. Pt stated that his appetite is okay , and he has been drinking his BoostONS. Pt did not have any nutrition preferences or concerns at this time. 06/26 Pt resting in bed at time of visit, finished breakfast tray (RD observed pt ate ~50%). Pt states hehas not had an appetite x last ~1 month-notes recent hospital admit. Pt states he is eating about half of usual intake and in the past 9 days has had ongoing diarrhea which has caused him to eat evenless. Pt states he has had 14lb wt loss from UBW of 265lbs over the past month as well. Pt states he usually drinks Boost at home, is willing to drink while here. Pt notes food preferences. Objective H&P and Current Problems H&P Past [...] LEFT; Surgeon: Cecil Buenrostro Jr., MD; Location: [facility]; Service: Orthopedics; Laterality: Left; ANTERIOR CERVICAL DISCECTOMY W/ FUSION Bilateral 07/17/2020 Procedure: Cervical discectomy anterior with fusion C3-4; Surgeon: Tyree Tan MD; Location: [facility]; Service: Neurosurgery; Laterality: Bilateral; AORTOGRAM N/A 01/26/2024 Procedure: ABDOMINAL AORTIC ANGIOGRAM, LLE ANGIOGRAM, LEFT ANTERIOR TIBIAL ATHERECTOMY, LEFT ANTERIOR TIBIAL ANGIOPLASTY; Surgeon: Archie Olvera MD; Location: [facility]; Service: Vascular; Laterality: N/A; CONTRAST: 50 ML, FT: 2 MIN 54 SEC, DOSE: 66 MGY. AORTOGRAM Left 07/03/2025 Procedure: ARTERIOGRAM LOWER EXTREMITY; Surgeon: Vaughn Hollingsworth DO; Location: [facility]; Service: Vascular; Laterality: Left; FT-6MINS 24SEC 140 MGY CONTRAST -15ML BACK SURGERY FOR DISC HERNIATION CARDIAC CATHETERIZATION CARDIAC CATHETERIZATION N/A 09/04/2024 Procedure: Peripheral angiography - Left lower extremity angio - Right femoral access; Surgeon: Jared Marcano MD; Location: [facility]; Service: Peripheral Vascular; Laterality: [...] Location: [facility]; Service: Orthopedics; Laterality: Left; INCISION AND DRAINAGE LEG Left 07/03/2025 Procedure: DEBRIDEMENT WOUND, PLACEMENT OF WOUND VAC; Surgeon: Vaughn Hollingsworth DO; Location: [facility]; Service: Vascular; Laterality: Left; INTERVENTIONAL RADIOLOGY PROCEDURE N/A 05/02/2019 Procedure: IVC FILTER PLACEMENT; Surgeon: Pedro Zapien MD; Location: [facility]; Service: Interventional Radiology INTERVENTIONAL RADIOLOGY PROCEDURE Left 09/07/2024 Procedure: LEFT peroneal arteriovenous fistula embolization - Right femoral access; Surgeon: Jared Marcano MD; Location: [facility]; Service: Cardiovascular; Laterality: Left; Please coordinate with Gautam Patel ([facility] [phone] who will bring coils LUMBAR DISCECTOMY N/A 05/03/2019 Procedure: THORACIC LAMINECTOMY T11-12; Surgeon: Tyree Tan MD; Location: [facility]; Service: Neurosurgery Current Problems Admission Diagnosis: Cellulitis [L03.90] Problem List: Gastroenteritis due to norovirus Primary hypertension Seizure disorder Coronary artery disease involving [place] coronary artery of [place] heart without angina pectoris PAD (peripheral artery disease) Wound infection Type 2 diabetes mellitus, with long-term current use of insulin Cellulitis Acute UTI (urinary tract infection) Diarrhea of presumed infectious origin Acute on chronic blood loss anemia BPH without obstruction/lower urinary tract symptoms GERD without esophagitis Bilateral inguinal hernia Applicable Nutrition Hx Historical R BKA Anthropometrics Height: 182.9 cm (72 ) Weight: 130 kg (286 lb 9.6 oz) (07/18/25 0514) Weight Method: Bed scale BMI (Calculated): 38.9 Trending Weight Changes 06/26/25: Unknown/Unable to Determine, pt reporting 14lb wt loss x 1 month however previously only stated wts 17lb/6.4% x ? 10 months Weight History Wt Readings from Last 10 Encounters: 07/18/25 0514 130 kg (286 lb 9.6 oz) 07/16/25 0456 120 kg (264 lb 5.3 oz) 07/13/25 0540 116 kg (254 lb 13.6 oz) 07/11/25 0626 116 kg (256 lb 9.6 oz) 07/09/25 0600 117 kg (258 lb 14.4 oz) 07/05/25 0600 117 kg (258 lb 13.1 oz) 07/03/25 1135 114 kg (251 lb) 07/02/25 0500 118 kg (259 lb 11.2 oz) 06/30/25 0600 117 kg (257 lb 0.9 oz) 06/29/25 0547 117 kg (257 lb 4.4 oz) 06/28/25 0520 116 kg (255 lb 8 oz) 06/26/25 0054 114 kg (251 lb 5.2 oz) 06/25/25 1814 120 kg (265 lb) 06/02/25 0932 120 kg (265 lb) 09/01/24 1128 122 kg (268 lb) 08/31/24 1756 122 kg (268 lb 14.4 oz) 08/31/24 1244 113 kg (250 lb) 01/15/24 1509 135 kg (297 lb) 01/15/24 1508 135 kg (297 lb 9.9 oz) 09/01/23 0558 135 kg (296 lb 12.8 oz) 08/31/23 2208 129 kg (285 lb) 08/03/23 2000 130 kg (285 lb 15 oz) 07/23/23 0147 127 kg (279 lb 3.2 oz) 07/22/23 1945 120 kg (265 lb) 07/14/23 0529 (!) 175 kg (384 lb 12.8 oz) 07/12/23 1240 (!) 175 kg (385 lb 5.8 oz) 07/09/23 0500 (!) 177 kg (390 lb 3.4 oz) 07/08/23 1604 122 kg (268 lb) 07/08/23 1523 122 kg (268 lb 15.4 oz) 07/07/23 1329 122 kg (270 lb) 06/24/23 1228 126 kg (277 lb 6.4 oz) 06/16/23 0436 130 kg (287 lb 3.2 oz) 06/14/23 1707 128 kg (283 lb) 06/14/23 1706 128 kg (283 lb) 06/13/23 2333 129 kg (283 lb 11.2 oz) 06/13/23 1651 120 kg (265 lb) 06/21/22 1825 102 kg (224 lb 14.4 oz) 06/21/22 0922 99.8 kg (220 lb) Labs Results from last 7 days Lab Units 07/18/25 0337 07/17/25 0548 07/16/25 0447 07/15/25 0432 07/14/25 0426 SODIUM mmol/L 137 139 139 < > -- POTASSIUM mmol/L 5.2 5.2 4.9 < > -- GLUCOSE mg/dL 148* 132* 134* < > -- BUN mg/dL 22.5 21.8 23.1* < > -- CREATININE mg/dL 0.82 0.89 0.80 < > -- CALCIUM mg/dL 8.6 8.8 8.5* < > -- MAGNESIUM mg/dL 2.1 1.9 2.0 < > -- LACTATE mmol/L -- -- -- -- 1.0 < > = values in this interval not displayed. Results from last 7 days Lab Units 07/17/25 0548 07/16/2544607/15/25431 PLATELETS 10*3/mm3 211 185 210 HEMOGLOBIN g/dL 9.3* 8.9* 8.9* HEMATOCRIT % 31.1* 30.2* 30.1* Lab Results Component Value Date HGBA1C 7.82 (H) 06/26/2025 Medications Scheduled Medications acetaminophen, 1,000 mg, Oral, Q8H apixaban, 5 mg, Oral, BID vitamin C, 500 mg, Oral, Daily baclofen, 10 mg, Oral, Q12H carvedilol, 3.125 mg, Oral, BID With Meals clopidogrel, 75 mg, Oral, Daily famotidine, 20 mg, Oral, BID AC finasteride, 5 mg, Oral, Daily folic acid, 1 mg, Oral, Daily gabapentin, 600 mg, Oral, Q8H insulin glargine, 30 Units, Subcutaneous, Nightly lamoTRIgine, 100 mg, Oral, Daily lamoTRIgine, 250 mg, Oral, Nightly meropenem, 500 mg, Intravenous, Q6H methenamine, 1 g, Oral, BID With Meals micafungin (MYCAMINE) IV, 100 mg, Intravenous, Q24H mirtazapine, 15 mg, Oral, Nightly multivitamin with minerals, 1 tablet, Oral, Daily OLANZapine zydis, 7.5 mg, Oral, Nightly oxyCODONE, 15 mg, Oral, Q6H sodium chloride, 10 mL, Intravenous, Q12H sodium chloride, 10 mL, Intravenous, Q12H vancomycin, 125 mg, Oral, BID Followed by [START ON 07/25/2025] vancomycin, 125 mg, Oral, Daily Followed by [START ON 08/01/2025] vancomycin, 125 mg, Oral, Weekly vancomycin, 1,250 mg, Intravenous, Q24H Infusions PRN Medications aluminum-magnesium hydroxide-simethicone benzonatate senna-docusate sodium AND polyethylene glycol AND bisacodyl AND bisacodyl Calcium Replacement - Follow Nurse / BPA Driven Protocol dextrose dextrose diphenhydrAMINE-zinc acetate glucagon (human recombinant) influenza vaccine ipratropium-albuterol Magnesium Cardiology Dose Replacement - Follow Nurse / BPA Driven Protocol [DISCONTINUED] Morphine AND naloxone nitroglycerin ondansetron oxyCODONE Phosphorus Replacement - Follow Nurse / BPA Driven Protocol Potassium Replacement - Follow Nurse / BPA Driven Protocol Insert Peripheral IV AND sodium chloride sodium chloride sodium chloride sodium chloride sodium chloride ziprasidone Physical Findings Chewing/Swallowing No issues identified at this time Dentition Mouth/Teeth WDL: .WDL except, teeth Teeth Symptoms: dental appliance present Pt reports dentures are ill-fitting though tolerating current textures Skin Wound Left posterior heel-Pressure Injury Stage: Unstageable (07/08/252236) WOC following Bowel function Last Bowel Movement: 07/18/25 (07/18/25 1135) Stool Consistency: creamy, soft (07/18/25 0855) Edema Edema: leg, left, knee, left (07/17/252253) Leg, Left Edema: 1+ (Trace) (07/17/252253) Knee, Left Edema: 1+ (Trace) (07/17/252253) N/a Intake & Output (last 3 days) 07/15 0707/16 0707/1607/18 0707/18 0701 07/19 0700 P.O. 550 477 687 Total Intake(mL/kg) 550 (4.6) 477 (4) 687 (5.3) Urine (mL/kg/hr) 1650 (0.6) 1600 (0.6) 850 (0.3) Stool 0 0 Total Output 1650 1600 850 Net -1100 -1123 -850 +687 Stool Unmeasured Occurrence 3 x 2 x 1 x Nutrition Focused Physical Exam 06/26/25: NFPE completed and not consistent with nutrition diagnosis of malnutrition at this time using AND/ASPEN criteria. 1 Current Nutrition Orders & Evaluation of Intake Oral Nutrition Food Allergies/Intolerances NKFA Current PO Diet Diet: Cardiac, Renal; Healthy Heart (2-3 Na+); Low Potassium; Fluid Consistency: Thin (IDDSI 0) Oral Nutrition Supplement Boost Glucose Control BID Trending % PO Intake 06/26/25: 50% x [address] observation 07/04/25: 43% x 7 recorded meals 07/10/25: 39% x 7 recorded meals 07/18/25: 50% x 9 meals 2 Assessment & Plan Nutrition Diagnosis and Goals Nutrition Diagnosis 1 Predicted Inadequate Energy Intake r/t diarrhea and recent hospital admit AEBpt report Nutrition Diagnosis 2 Unintended Weight Loss r/t lack of appetite, diarrhea AEB pt report 14lb wt loss x 1 month. Goal(s) Increase PO Intake , Accepts Oral Nutrition Supplement, and Skin Integrity to Improve Nutrition Intervention and Prescription Intervention Continue to monitor for plan of care and Continue with current interventions Diet Continue current diet Supplement Continue Boost GC (papito) BID Education Provided N/a 3 Monitoring/Evaluation Monitor/Evaluation Per Protocol, PO Intake, Oral Nutrition Supplement Intake, Weight, and Skin Status RD Follow-Up Encounter 7 days and prn Electronically signed by: Annie Huber MS,RD,LD 07/18/25 13:59 EST * Mere Armas PA-C - 07/18/2025 10:52 AM EST Images from the original note were not included. [facility] Medicine Services PROGRESS NOTE Patient Name: Trung Pool : 1955 Date of Admission: 06/25/2025 Primary Care Physician: Gustavo Mehta MD Subjective CC: f/u LLE HPI: In bed. LLE pain the same - took PRN dose of Oxy around 0900 and sleeping soundly when I visited [id number]. Asks if BKA would adequately address issues. Does not want AKA Objective Vital Signs: Temp: [97.9 ??F (36.6 ??C)-98.3 ??F (36.8 ??C)] 97.9 ??F (36.6 ??C) Heart Rate: [63-96] 72 Resp: [18] 18 BP: (131-169)/(66-111) 143/77 Physical Exam: Constitutional: No acute distress, awake, alert and conversant. Laying in bed. Chronically ill appearing. HENT: NCAT, mucous membranes moist Respiratory: Clear to auscultation bilaterally, normal respiratory effort on RA Cardiovascular: RRR Gastrointestinal: Positive bowel sounds, soft, nontender, nondistended Musculoskeletal: R AKA. LLE is dressed with wound vac in place - did not remove for exam Psychiatric: Appropriate affect, cooperative with exam Neurologic: Oriented x 4, moves all extremities spontaneously without focal deficits, speech clear Results Reviewed: LAB RESULTS: Lab 07/17/2548 07/16/2544607/15/2543107/14/256 07/14/255 07/13/25 0808 WBC 7.10 6.76 8.08 -- 8.27 6.58 HEMOGLOBIN 9.3* 8.9* 8.9* -- 9.2* 9.4* HEMATOCRIT 31.1* 30.2* 30.1* -- 30.9* 30.1* PLATELETS 211 185 210 -- 251 256 MCV 79.1 80.7 80.9 -- 78.8* 77.2* LACTATE -- -- -- 1.0 -- -- Lab 07/18/25 0337 07/17/25 0548 07/16/257 07/15/2543107/14/25424 SODIUM 137 139 139 139 141 POTASSIUM 5.2 5.2 4.9 4.8 4.9 CHLORIDE 108* 109* 110* 111* 111* CO2 21.4* 19.1* 19.3* 18.8* 19.8* ANION GAP 7.6 10.9 9.7 9.2 10.2 BUN 22.5 21.8 23.1* 25.4* 37.3* CREATININE 0.82 0.89 0.80 0.74* 1.17 EGFR 93.9 91.6 94.6 96.9 66.6 GLUCOSE 148* 132* 134* 98 67 CALCIUM 8.6 8.8 8.5* 8.6 8.6 MAGNESIUM 2.1 1.9 2.0 2.1 2.3 Lab 07/14/25 1517 07/14/25 0601 FIO2 21 21 CARBOXYHEMOGLOBIN (VENOUS) 1.3 1.1 Brief Urine Lab Results (Last result in the past 365 days) Color Clarity Blood Leuk Est Nitrite Protein CREAT Urine HCG 07/14/2552 Yellow Clear Trace Moderate (2+) Negative 30 mg/dL (1+) Microbiology Results Abnormal Procedure Component Value - Date/Time Urine Culture - Urine, Indwelling Urethral Catheter [[id number]] (Abnormal) Collected: 07/14/2552 Lab Status: Final result Specimen: Urine from Indwelling Urethral Catheter Updated: 07/15/25 1329 Urine Culture Yeast isolated Narrative: No further workup for yeast Colonization of the urinary tract without infection is common. Treatment is discouraged unless the patient is symptomatic, , or undergoing an invasive urologic procedure. Urine Culture -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 Linked Group 125 mg Oral Daily 07/25/25 0900 08/01/25 0859 06/26/25 0831 vancomycin (VANCOCIN) capsule 125 mg Ordering Provider: Vaughn Hollingsworth DO Placed in Followed by Linked Group 125 mg Oral 2 Times Daily 07/17/25 2100 07/24/25205807/17/25 07 micafungin sodium (MYCAMINE) 100 mg in sodium chloride 0.9 % 100 mL MBP Ordering Provider: Duglas Andres MD 100 mg Intravenous Every 24 Hours 07/17/25 0900 07/24/25 0859 07/16/25 0813 micafungin sodium (MYCAMINE) 100 mg in sodium chloride 0.9 % 100 mL MBP Ordering Provider: Duglas Andres MD 100 mg Intravenous Once 07/16/25 0900 07/16/25 0920 07/14/25 0909 micafungin sodium (MYCAMINE) 100 mg in sodium chloride 0.9 % 100 mL MBP Ordering Provider: Duglas Andres MD 100 mg Intravenous Once 07/14/25 1000 07/14/25 1220 07/11/25 1101 Vancomycin HCl 1,250 mg in sodium chloride 0.9 % 250 mL VTB Ordering Provider: Osmany Mccann RPH 1,250 mg 200 mL/hr over 75 Minutes Intravenous Every 24 Hours 07/11/25 1200 07/21/25 1159 06/26/25 0831 vancomycin (VANCOCIN) capsule 125 mg Ordering Provider: Vaughn Hollingsworth DO Placed in Followed by [facility] 125 mg Oral 3 Times Daily 07/10/25 1600 07/17/25 1559 07/09/25 0813 vancomycin (dosing per levels) Status: Discontinued Ordering Provider: Osmany Mccann RPH Not Applicable Daily 07/09/25 0900 07/11/25 1101 07/03/25 0814 vancomycin (VANCOCIN) 1,000 mg in sodium chloride 0.9 % 250 mL IVPB-VTB Status: Discontinued Ordering Provider: Vaughn Hollingsworth DO 1,000 mg 250 mL/hr over 60 Minutes Intravenous Every 12 Hours 07/03/25 0900 07/09/25 0811 06/28/25 0724 vancomycin (VANCOCIN) 1,000 mg in sodium chloride 0.9 % 250 mL IVPB-VTB Status: Discontinued Ordering Provider: Duglas Andres MD 1,000 mg 250 mL/hr over 60 Minutes Intravenous Every 12 Hours 06/28/25 0900 07/03/25 0814 06/27/25 0812 Vancomycin HCl 1,250 mg in sodium chloride 0.9 % 250 mL VTB Status: Discontinued Ordering Provider: Osmany Mccann RPH 1,250 mg 200 mL/hr over 75 Minutes Intravenous Every 12 Hours 06/27/25 2100 06/27/25 0813 06/27/25 0813 Vancomycin HCl 1,250 mg in sodium chloride 0.9 % 250 mL VTB Status: Discontinued Ordering Provider: Osmany Mccann, RPH 1,250 mg 200 mL/hr over 75 Minutes Intravenous Every 12 Hours 06/27/25 2100 06/28/25 0724 06/27/25 0856 vancomycin 2500 mg/500 mL 0.9% NS IVPB ([facility]) Ordering Provider: Osmany Mccann RPH 2,500 mg over 150 Minutes Intravenous Once 06/27/25 0945 06/27/25 1150 06/27/25 0808 vancomycin 2250 mg/500 mL 0.9% NS IVPB ([facility]) Status: Discontinued Ordering Provider: Osmany Mccann RPH 2,250 mg over 135 Minutes Intravenous Once 06/27/25 0900 06/27/25 0856 06/27/25 0739 Pharmacy to dose vancomycin Ordering Provider: Vaughn Hollingsworth, DO Not Applicable Continuous PRN 06/27/25 0739 07/11/25 0738 06/25/25 2312 DAPTOmycin (CUBICIN) 550 mg in sodium chloride 0.9 % 50 mL IVPB Status: Discontinued Ordering Provider: Amanda Bermudez MD 6 mg/kg ?? 94.6 kg (Adjusted) 100 mL/hr over 30 Minutes Intravenous Every 24 Hours 06/26/25 2100 06/27/25 0739 06/26/25 0847 meropenem (MERREM) 500 mg in sodium chloride 0.9 % 100 mL MBP Ordering Provider: Duglas Andres MD 500 mg over 3 Hours Intravenous Every 6 Hours 06/26/25 1600 07/30/25 1959 06/25/25 2303 piperacillin-tazobactam (ZOSYN) 4.5 g IVPB in 100 mL NS MBP (CD) Status: Discontinued Ordering Provider: Amanda Bermudez MD 4.5 g over 4 Hours Intravenous Every 8 Hours 06/26/25 1200 06/26/25 0846 06/26/25 0831 vancomycin (VANCOCIN) capsule 125 mg Ordering Provider: Vaughn Hollingsworth, Placed in Followed by Linked Group 125 mg Oral 4 Times Daily 06/26/25 1200 07/10/25 1159 06/26/25 0847 meropenem (MERREM) 500 mg in sodium chloride 0.9 % 100 mL MBP Ordering Provider: Duglas Andres MD 500 mg over 30 Minutes Intravenous Once 06/26/25 0945 06/26/25 1047 06/26/25 0833 micafungin sodium (MYCAMINE) 100 mg in sodium chloride 0.9 % 100 mL MBP Ordering Provider: Duglas Andres MD 100 mg Intravenous Once 06/26/25 0930 06/26/25 0850 06/26/25 0113 methenamine (HIPREX) tablet 1 g Ordering Provider: Vaughn Hollingsworth, DO 1 g Oral 2 Times Daily With Meals 06/26/25 0806/25/252302 piperacillin-tazobactam (ZOSYN) 3.375 g IVPB in 100 mL NS MBP (CD) Status: Discontinued Ordering Provider: Amanda Bermudez MD 3.375 g over 30 Minutes Intravenous Once 06/26/25 0606/25/25231106/25/252311 piperacillin-tazobactam (ZOSYN) 4.5 g IVPB in 100 mL NS MBP (CD) Ordering Provider: Amanda Bermudez MD 4.5 g over 30 Minutes Intravenous Once 06/26/25 0606/26/25 0606/25/252111 DAPTOmycin (CUBICIN) 550 mg in sodium chloride 0.9 % 50 mL IVPB Ordering Provider: Ally Jeffers APRN 6 mg/kg ?? 94.6 kg (Adjusted) 100 mL/hr over 30 Minutes Intravenous Once 06/25/25212706/25/25230606/25/252111 meropenem (MERREM) 1,000 mg in sodium chloride 0.9 % 100 mL MBP Ordering Provider: Ally Jeffers APRN 1,000 mg over 30 Minutes Intravenous Once 06/25/25212706/25/252236 Review of Systems 07/18/25 Constitutional-- No Fever, chills or sweats. Appetite good, and no malaise. No fatigue. Heent-- No new vision, hearing or throat complaints. No epistaxis or oral sores. Denies odynophagiaor dysphagia. No flashers, floaters or eye pain. No odynophagia or dysphagia. No headache, photophobia or neck stiffness. CV-- No chest pain, palpitation or syncope Resp-- No SOB/cough/Hemoptysis GI- No hematochezia, melena, or hematemesis. Denies jaundice or chronic liver disease. -- chronic De Los Santos catheter, denies flank pain Lymph- no swollen lymph nodes in neck/axilla or groin. Heme- No active bruising or bleeding; no Hx of DVT or PE. MS-- no swelling or pain in the bones or joints of arms/legs. No new back pain. Neuro-- No acute focal weakness or numbness in the arms or legs. Chronically debilitated Full 12 point review of systems reviewed and negative otherwise for acute complaints, except for above Physical Exam: Vital Signs BP 153/69 (BP Location: Right arm, Patient Position: Lying) Pulse 86 Temp 98 ??F (36.7 ??C) (Oral) Resp 18 Ht 182.9 cm (72 ) Wt 130 kg (286 lb 9.6 oz) SpO2 96% BMI 38.87 kg/m?? GENERAL: sleepy but arousable and interacting HEENT: Normocephalic, atraumatic. No conjunctival injection. No icterus. Oropharynx clear without evidence of thrush or exudate. No evidence of periodontal disease. NECK: Supple without nuchal rigidity. No mass. HEART: RRR; No murmur, rubs, gallops. LUNGS: diminished at bases; Clear to auscultation bilaterally without wheezing, rales, rhonchi. Normal respiratory effort. Nonlabored. No dullness. ABDOMEN: Soft, nontender, nondistended. Positive bowel sounds. No rebound or guarding. NO mass or HSM. EXT: see below : With De Los Santos catheter. MSK: FROM without joint effusions noted arms/legs. SKIN: Warm and dry without cutaneous eruptions on Inspection/palpation. NEURO: sleepy Left foot amputation noted surgical site covered. Vague erythema LLE but no discrete mass bulge or fluctuance. No crepitus or bulla Right side amputation no obvious open wound or new redness/induration Laboratory Data Results from last 7 days Lab Units 07/17/25 0548 07/16/25 0447 07/15/25 0432 WBC 10*3/mm3 7.10 6.76 8.08 HEMOGLOBIN g/dL 9.3* 8.9* 8.9* HEMATOCRIT % 31.1* 30.2* 30.1* PLATELETS 10*3/mm3 211 185 210 Results from last 7 days Lab Units 07/18/25 0337 SODIUM mmol/L 137 POTASSIUM mmol/L 5.2 CHLORIDE mmol/L 108* CO2 mmol/L 21.4* BUN mg/dL 22.5 CREATININE mg/dL 0.82 GLUCOSE mg/dL 148* CALCIUM mg/dL 8.6 Estimated Creatinine Clearance: 115.2 mL/min (by C-G formula based on SCr of 0.82 mg/dL). Microbiology: Radiology: Imaging Results (Last 72 Hours) No results found for the last 72 hours. Impression: --acute left lower leg/foot cellulitis and wound infection, prior culture July 2024 with ESBL Klebsiella pneumoniae and pseudomonas aeruginosa, pseudomonas was sensitive to Merrem per microbiology lab at [facility]. Cx at [facility] as below; He has had multiple surgeries and multiple p ractitioners recommend higher level amputation which he has refused. On prior admissions, he has refused outpatient IV antibiotics and he has refused placement for longer durations of IV antibiotics.This refusal of care has placed him at increased risk for poor outcome. Earlier in 2024 he was discharged to the care of Dr. Oneal, his outpatient ID doctor and Dr Faust his automobile travel club counselor for furthercare/workup ; readmission May 2025 and June 2025 with acute worsening in redness/drainage to left lower extremity. Surgery as above and ongoing IV abx, admission associated with bacteremia and mixed/MDR organisms; High risk for further serious morbidity and other serious sequela including p ersistent/recurrent or nonhealing wounds, persistent/progressive or recurrent infection and risk for further functional/limb loss, higher-level amputation and other dire consequences including sepsis/mortalityetc. he remains opposed to amputation; he voices understanding his poor prognosis overall including risks for dire consequences; past Cx with MRSA/PSA/ESBL at prior admissions; culture June 02, 2025 with Proteus/MRSA/PSA; Cx June 2025 below; further imaging no definitive osteomyelitis but also unable to exclude per radiology at distal first/second MT; surgery with I&D 07/03 but no further bone debridement/amputation --E Faecium bacteremia ; NOT vanco resistant; ?foot source -v- other --Acute hematuria/UTI with chronic indwelling De Los Santos catheter. Proteus in culture previously; nursing reports De Los Santos catheter change earlier in admission; repeat urine 07/14 with yeast, ?colonizer -v- evolving UTI, de los santos to change and empiric mycamine x 1 then monitor; if stronger evidence for yeast as pathogen then may need ampho b prooduct if not responding to echinocnadin given Hx QT prolongation --Acute diarrhea, Norovirus + and C. Difficile PCR +, although toxin antigen negative earlier in stay. He has risk for active disease and does have symptomatology and requires antibiotics for other processes, and therefore oral vancomycin added although unable to definitively confirm active diseasewith toxin antigen negative ( although risk for false negative); supportive care ongoing --MRSA surveillance + --Peripheral arterial disease by past evaluation of vascular team in addition to history DVT. 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 He does not have enough assistanceat home to do IV abx at home per him; case management and palliative teams following --mycamine IV for now;de los santos change again 07/16 wound culture June 02, 2025 with Proteus /MRSA, PSA urine culture June 02, 2025 E Coli/ESBL Proteus urine culture 06/25 proteus blood culture 06/25 E Faecium vanco/amp sensitive; dapto sens but dose dependent wound culture 06/25 (surface) with MRSA and ESBL proteus and morganella --Check/review labs cultures and scans --Partial history [...] transitions of care for this complex patient. Duglas Andres MD 07/18/2025 [1] Allergies Allergen Reactions Keppra [Levetiracetam] Other (See Comments) Acute psychosis Bupropion Unknown (See Comments) Codeine Nausea Only Hydrocodone Unknown (See Comments) Ketorolac Tromethamine Unknown (See Comments) [2] Current Facility-Administered Medications Medication Dose Route Frequency Provider Last Rate Last Admin acetaminophen (TYLENOL) tablet 650 mg 650 mg Oral Q4H PRN Amanda Bermudez MD 650 mg at 06/29/25 0343 Or acetaminophen (TYLENOL) 160 MG/5ML oral solution 650 mg 650 mg Oral Q4H PRN Amanda Bermudez MD Or acetaminophen (TYLENOL) suppository 650 mg 650 mg Rectal Q4H PRN Amanda Bermudez MD aluminum-magnesium hydroxide-simethicone (MAALOX MAX) 400-400-40 MG/5ML suspension 15 mL 15 mL [id number] PRN Amanda Bermudez MD [Held by provider] apixaban (ELIQUIS) tablet 5 mg 5 mg Oral BID Amanda Bermudez MD ascorbic acid (VITAMIN C) tablet 500 mg 500 mg Oral Daily Amanda Bermudez MD 500 mg at 07/01/25 0830 baclofen (LIORESAL) tablet 10 mg 10 mg Oral Q12H Amanda Bermudez MD 10 mg at 07/01/25 2144 sennosides-docusate (PERICOLACE) 8.6-50 MG per tablet 2 tablet 2 tablet Oral BID PRN Amanda Bermudez MD And polyethylene glycol (MIRALAX) packet 17 g 17 g Oral Daily PRN Amanda Bermudez MD And bisacodyl (DULCOLAX) EC tablet 5 mg 5 mg Oral Daily PRN Amanda Bermudez MD And bisacodyl (DULCOLAX) suppository 10 mg 10 mg Rectal Daily PRN Amanda Bermudez MD Calcium Replacement - Follow Nurse / BPA Driven Protocol Not Applicable PRN Amanda Bermudez MD carvedilol (COREG) tablet 3.125 mg 3.125 mg Oral BID With Meals Amanda Bermudez MD 3.125 mg at 07/01/25 1712 clopidogrel (PLAVIX) tablet 75 mg 75 mg Oral Daily Amanda Bermudez MD 75 mg at 07/01/25 0830 famotidine (PEPCID) tablet 20 mg 20 mg Oral BID AC Arnoldo Crews PharmD 20 mg at 07/02/25 0649 finasteride (PROSCAR) tablet 5 mg 5 mg Oral Daily Amanda Bermudez MD 5 mg at 07/01/25 0830 folic acid (FOLVITE) tablet 1 mg 1 mg Oral Daily Amanda Bermudez MD 1 mg at 07/01/25 0830 gabapentin (NEURONTIN) capsule 300 mg 300 mg Oral Q8H Milena Jo APRN 300 mg at 07/02/25 0649 heparin (porcine) 5000 UNIT/ML injection 5,000 Units 5,000 Units Subcutaneous Q8H AlbertLupe kessler APRN 5,000 Units at 07/02/25 0649 influenza vac split high-dose (FLUZONE HIGH DOSE) injection 0.5 mL 0.5 mL Intramuscular During Hospitalization Kris Boston DO insulin glargine (LANTUS, SEMGLEE) injection 56 Units 56 Units Subcutaneous Nightly Amanda Bermudez MD 56 Units at 07/01/25 2145 ipratropium-albuterol (DUO-NEB) nebulizer solution 3 mL 3 mL Nebulization Q6H PRN Amanda Bermudez MD lamoTRIgine (LaMICtal) tablet 100 mg 100 mg Oral Daily Amanda Bermudez MD 100 mg at 07/01/25 0830 lamoTRIgine (LaMICtal) tablet 250 mg 250 mg Oral Nightly Amanda Bermudez MD 250 mg at 07/01/25 2144 Magnesium Cardiology Dose Replacement - Follow Nurse / BPA Driven Protocol Not Applicable PRN Amanda Bermudez MD meropenem (MERREM) 500 mg in sodium chloride 0.9 % 100 mL MBP 500 mg Intravenous Q6H Duglas Andres MD 500 mg at 07/02/25 0359 methenamine (HIPREX) tablet 1 g 1 g Oral BID With Meals Amanda Bermudez MD 1 g at 07/01/25 1713 multivitamin with minerals 1 tablet 1 tablet Oral Daily Amanda Bermudez MD 1 tablet at 07/01/25 0830 naloxone (NARCAN) injection 0.4 mg 0.4 mg Intravenous Q5 Min PRN Amanda Bermudez MD nitroglycerin (NITROSTAT) SL tablet 0.4 mg 0.4 mg Sublingual Q5 Min PRN Amanda Bermudez MD ondansetron (ZOFRAN) injection 4 mg 4 mg Intravenous Q6H PRN Amanda Bermudez MD 4 mg at 646 oxyCODONE-acetaminophen (PERCOCET) 10-325 MG per tablet 1 tablet 1 tablet Oral Q6H PRN Kris Boston DO 1 tablet at 07/02/25 0125 Pharmacy to dose vancomycin Not Applicable Continuous PRN Duglas Andres MD Phosphorus Replacement - Follow Nurse / BPA Driven Protocol Not Applicable PRN Amanda Bermudez MD Potassium Replacement - Follow Nurse / BPA Driven Protocol Not Applicable PRN Amanda Bermudez MD sacubitril-valsartan (ENTRESTO) 24-26 MG tablet 1 tablet 1 tablet Oral BID Amanda Bermudez MD 1 tablet at 07/01/25 214 sodium chloride 0.9 % flush 10 mL 10 mL Intravenous PRN Ally Jeffers V, DIABETES NURSE sodium chloride 0.9 % flush 10 mL 10 mL Intravenous Q12H Amanda Bermudez MD 10 mL at 07/01/25 0832 sodium chloride 0.9 % flush 10 mL 10 mL Intravenous PRN Amanda Bermudez MD sodium chloride 0.9 % flush 10 mL 10 mL Intravenous Q12H Duglas Andres MD 10 mL at 07/01/25 2145 sodium chloride 0.9 % flush 10 mL 10 mL Intravenous PRN Duglas Andres MD sodium chloride 0.9 % flush 20 mL 20 mL Intravenous PRN Duglas Andres MD sodium chloride 0.9 % infusion 40 mL 40 mL Intravenous PRN Duglas Andres MD vancomycin (VANCOCIN) 1,000 mg in sodium chloride 0.9 % 250 mL IVPB-VTB 1,000 mg Intravenous Q12H Osmany Mccann, [facility] 250 mL/hr at 07/01/252142 1,000 mg at 07/01/252142 vancomycin (VANCOCIN) capsule 125 mg 125 mg Oral 4x Daily Duglas Andres MD 125 mg at Followed by [START ON 07/10/2025] vancomycin (VANCOCIN) capsule 125 mg 125 mg Oral TID Duglas Andres MD Followed by [START ON 07/17/2025] vancomycin (VANCOCIN) capsule 125 mg 125 mg Oral BID Duglas Andres MD Followed by [START ON 07/25/2025] vancomycin (VANCOCIN) capsule 125 mg 125 mg Oral Daily Duglas Andres MD Followed by [START ON 08/01/2025] vancomycin (VANCOCIN) capsule 125 mg 125 mg Oral Weekly Duglas Andres MD * Leonie Esquivel [facility] - 07/18/2025 7:42 AM EST Images from the original note were not included. Pharmacy Consult - Vancomycin Dosing and Monitoring Trung Pool is a 70 y.o. male receiving vancomycin therapy. Indication: bacteremia Consulting Provider: Dr. Andres (ID) ID Consult: Y Goal AUC: 400-600 mg/L*hr Current Antimicrobial Therapy Anti-Infectives (From admission, onward) Ordered Dose/Rate Route Frequency Start Stop 06/26/25830 vancomycin (VANCOCIN) capsule 125 mg Ordering Provider: Vaughn Hollingsworth DO Placed in Followed by Linked Group 125 mg Oral Weekly 08/01/25 0900 09/19/25 0859 06/26/25 0831 vancomycin (VANCOCIN) capsule 125 mg Ordering Provider: Vaughn Hollingsworth DO Placed in Followed by Linked Group 125 mg Oral Daily 07/25/25 0900 08/01/25 0859 06/26/25 0831 vancomycin (VANCOCIN) capsule 125 mg Ordering Provider: Vaughn Hollingsworth DO Placed in Followed by Linked Group 125 mg Oral 2 Times Daily 07/17/25 2100 07/24/25 2059 07/17/25 0742 micafungin sodium (MYCAMINE) 100 mg in sodium chloride 0.9 % 100 mL MBP Ordering Provider: Duglas Andres MD 100 mg Intravenous Every 24 Hours 07/17/25 0900 07/24/25 0859 07/16/25 0813 micafungin sodium (MYCAMINE) 100 mg in sodium chloride 0.9 % 100 mL MBP Ordering Provider: Duglas Andres MD 100 mg Intravenous Once 07/16/25 0900 07/16/25 0920 07/14/25 0909 micafungin sodium (MYCAMINE) 100 mg in sodium chloride 0.9 % 100 mL MBP Ordering Provider: Duglas Andres MD 100 mg Intravenous Once 07/14/25 1000 07/14/25 1220 07/11/25 1101 Vancomycin HCl 1,250 mg in sodium chloride 0.9 % 250 mL VTB Ordering Provider: Osmany Mccann RPH 1,250 mg 200 mL/hr over 75 Minutes Intravenous Every 24 Hours 07/11/25 1200 07/21/25 1159 06/26/25 0831 vancomycin (VANCOCIN) capsule 125 mg Ordering Provider: Vaughn Hollingsworth DO Placed in Followed by Linked Group 125 mg Oral 3 Times Daily 07/10/25 1600 07/17/25 1559 07/09/25 0813 vancomycin (dosing per levels) Status: Discontinued Ordering Provider: Osmany Mccann RPH Not Applicable Daily 07/09/25 0900 07/11/25 1101 07/03/25 0814 vancomycin (VANCOCIN) 1,000 mg in sodium chloride 0.9 % 250 mL IVPB-VTB Status: Discontinued Ordering Provider: Vaughn Hollingsworth DO 1,000 mg 250 mL/hr over 60 Minutes Intravenous Every 12 Hours 07/03/25 0900 07/09/25 0811 06/28/25 0724 vancomycin (VANCOCIN) 1,000 mg in sodium chloride 0.9 % 250 mL IVPB-VTB Status: Discontinued Ordering Provider: Duglas Andres MD 1,000 mg 250 mL/hr over 60 Minutes Intravenous Every 12 Hours 06/28/25 0900 07/03/25 0814 06/27/25 0812 Vancomycin HCl 1,250 mg in sodium chloride 0.9 % 250 mL VTB Status: Discontinued Ordering Provider: Osmany Mccann RPH 1,250 mg 200 mL/hr over 75 Minutes Intravenous Every 12 Hours 06/27/25 2100 06/27/25 0813 06/27/25 0813 Vancomycin HCl 1,250 mg in sodium chloride 0.9 % 250 mL VTB Status: Discontinued Ordering Provider: Osmany Mccann RPH 1,250 mg 200 mL/hr over 75 Minutes Intravenous Every 12 Hours 06/27/25 2100 06/28/25 0724 06/27/25 0856 vancomycin 2500 mg/500 mL 0.9% NS IVPB ([facility]) Ordering Provider: Osmany Mccann RPH 2,500 mg over 150 Minutes Intravenous Once 06/27/25 0945 06/27/25 1150 06/27/25 0808 vancomycin 2250 mg/500 mL 0.9% NS IVPB ([facility]) Status: Discontinued Ordering Provider: Osmany Mccann RPH 2,250 mg over 135 Minutes Intravenous Once 06/27/25 0900 06/27/25 0856 06/27/25 0739 Pharmacy to dose vancomycin Ordering Provider: Vaughn Hollingsworth, DO Not Applicable Continuous PRN 06/27/25 0739 07/11/25 0738 06/25/25 2312 DAPTOmycin (CUBICIN) 550 mg in sodium chloride 0.9 % 50 mL IVPB Status: Discontinued Ordering Provider: Amanda Bermudez MD 6 mg/kg ?? 94.6 kg (Adjusted) 100 mL/hr over 30 Minutes Intravenous Every 24 Hours 06/26/25 2100 06/27/25 0739 06/26/25 0847 meropenem (MERREM) 500 mg in sodium chloride 0.9 % 100 mL MBP Ordering Provider: Duglas Andres MD 500 mg over 3 Hours Intravenous Every 6 Hours 06/26/25 1600 07/30/25 1959 06/25/25 2303 piperacillin-tazobactam (ZOSYN) 4.5 g IVPB in 100 mL NS MBP (CD) Status: Discontinued Ordering Provider: Amanda Bermudez MD 4.5 g over 4 Hours Intravenous Every 8 Hours 06/26/25 1200 06/26/25 0846 06/26/25 0831 vancomycin (VANCOCIN) capsule 125 mg Ordering Provider: Vaughn Hollingsworth DO Placed in Followed by Linked Group 125 mg Oral 4 Times Daily 06/26/25 1200 07/10/25 1159 06/26/25 0847 meropenem (MERREM) 500 mg in sodium chloride 0.9 % 100 mL MBP Ordering Provider: Duglas Andres MD 500 mg over 30 Minutes Intravenous Once 06/26/25 0945 06/26/25 1047 06/26/25 0833 micafungin sodium (MYCAMINE) 100 mg in sodium chloride 0.9 % 100 mL MBP Ordering Provider: Duglas Andres MD 100 mg Intravenous Once 06/26/25 0930 06/26/25 0850 06/26/25 0113 methenamine (HIPREX) tablet 1 g Ordering Provider: Vaughn Hollingsworth DO 1 g Oral 2 Times Daily With Meals 06/26/25 0800 06/25/25 230 piperacillin-tazobactam (ZOSYN) 3.375 g IVPB in 100 mL NS MBP (CD) Status: Discontinued Ordering Provider: Amanda Bermudez MD 3.375 g over 30 Minutes Intravenous Once 06/26/25 0600 06/25/25231106/25/25 231 piperacillin-tazobactam (ZOSYN) 4.5 g IVPB in 100 mL NS MBP (CD) Ordering Provider: Amanda Bermudez MD 4.5 g over 30 Minutes Intravenous Once 06/26/25 0600 06/26/25 0600 06/25/252111 DAPTOmycin (CUBICIN) 550 mg in sodium chloride 0.9 % 50 mL IVPB Ordering Provider: Ally Jeffers APRN 6 mg/kg ?? 94.6 kg (Adjusted) 100 mL/hr over 30 Minutes Intravenous Once 06/25/25212706/25/25230606/25/252111 meropenem (MERREM) 1,000 mg in sodium chloride 0.9 % 100 mL MBP Ordering Provider: Ally Jeffers APRN 1,000 mg over 30 Minutes Intravenous Once 06/25/25212706/25/252236 Allergies Allergies as of 06/25/2025 - Reviewed 06/25/2025 Allergen Reaction Noted Keppra [levetiracetam] Other (See Comments) 08/01/2023 Bupropion Unknown (See Comments) 03/06/2022 Codeine Nausea Only 04/28/2019 Hydrocodone Unknown (See Comments) 03/06/2022 Ketorolac tromethamine Unknown (See Comments) 03/06/2022 Labs Results from last 7 days Lab Units 07/18/257 07/17/2554707/16/25446 BUN mg/dL 22.5 21.8 23.1* CREATININE mg/dL 0.82 0.89 0.80 Results from last 7 days Lab Units 07/17/2554707/16/2544607/15/25 043 WBC 10*3/mm3 7.10 6.76 8.08 Evaluation of Dosing Is Patient on Dialysis or Renal Replacement: N Height - 182.9 cm (72 ) Weight - 130 kg (286 lb 9.6 oz) Estimated Creatinine Clearance: 115.2 mL/min (by C-G formula based on SCr of 0.82 mg/dL). I/O last 3 completed shifts: In: - Out: 1500 [Urine:1500] Microbiology and Radiology Microbiology Results (last 10 days) Procedure Component Value - Date/Time Urine Culture - Urine, Indwelling Urethral Catheter [[id number]] (Abnormal) Collected: 07/14/2552 Lab Status: Final result Specimen: Urine from Indwelling Urethral Catheter Updated: 07/15/25 1329 Urine Culture Yeast isolated Narrative: No further workup for yeast Colonization of the urinary tract without infection is common. Treatment is discouraged unless the patient is symptomatic, , or undergoing an invasive urologic procedure. Reported Vancomycin Levels Results from last 7 days Lab Units 07/18/2533607/14/25424 VANCOMYCIN RM mcg/mL 19.20 22.70 [employer] AUC Calculation: Current AUC: 442 mg/L*hr Predicted Steady State AUC on Current Dose: 417 mg/L*hr Predicted Steady State AUC on New Dose: n/a Assessment/Plan: Pharmacy to dose vancomycin for bacteremia. Goal AUC 400-600mg/L*hr. Patient is currently on day 8 of a maintenance dose of 1250 mg IV q24h. Predicted steady state AUC of 417 mg/L*hr on current regimen. Vancomycin random level this AM extrapolates to a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 vacuum-assisted closure, wound measuring 2.5 cm [...] 07/25/[address] Buenrostro PROCEDURE: Left 14393: Debridement of skin and subcutaneous tissue 78899: Wound vacuum-assisted closure culture data with MRSA/aneta. [...] possible intervention 01/28/24 Dr. 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 Faust in [place] and has seen Dr Oneal (ID [place]); he is not a good historian with respect to detail. Reports having had some further surgery to the left foot although he is unable to clarify specific date/procedure. Culture at [facility] August 07, 2024 from left foot wound with ESBL Klebsiella pneumoniae and pseudomonas aeruginosa (microbiology lab there reports the Pseudomonas is sensitive to Merrem). He reports his outpatient practitioners had recommended admission to the hospital for IV antibiotics but patient had refused at that time. He also reports that he was in the emergency room [facility] mid August, no cultures done at that time. Patient reports practitioners at [facility] had recommended higher level amputation but patient has continued to refuse that. He was readmitted to [facility] on August 31, 2024 with worsening odor/drainage andredness/pain to the left lower extremity in recent days/weeks. He reports having been taking outpatient Levaquin; prior history MRSA/PSA and ESBL organisms 09/04/24 Dr Marcano. Procedure/CPT?? Codes: RIGHT SEWING SUPERVISOR access - ultrasound guided Aortogram with LEFT lower extremity run-off LEFT PT angioplasty ([id number] Nanocross) LEFT plantar angioplasty ([id number] Nanocross, [id number] UltraverseRx) LEFT AT angioplasty ([id number] Nanocross, 2.9h150ss UltraverseRx) LEFT DP angioplasty ([id number] Nanocross, 2.8m021bq UltraverseRx) RIGHT SEWING SUPERVISOR closure (Angioseal) 09/07/24 Dr Marcano Procedure/CPT?? Codes: RIGHT SEWING SUPERVISOR access - ultrasound guided Aortogram with LEFT lower extremity run-off LEFT Pr AVF embolization RIGHT SEWING SUPERVISOR closure 09/09/24 moved to ICU overnight with [...] developed generalized weakness with hematuria with chronic De [place] Santos catheter, worsening redness to the left lower leg and empiric antibiotics reinitiated with daptomycin/Zosyn. Subsequent adjustment to daptomycin/Merrem with concern for mixed culture including ESBL species per microbiology 06/11/25 finished antibiotics as inpatient for UTI and cellulitis Readmitted on June 25, 2025 with reports of increased redness/drainage at the left foot, diarrhea and hematuria with concerns for recurrent UTI, C. Difficile PCR positivity (toxin neg) and left lower extremity infection. Patient reports De Los Santos catheter change in its entirety since readmission. 06/27/25 stool with norovirus, CDiff PCR + (toxin neg), blood culture with enterococcus sp (NOT vanco resistant by PCR), MRSA survellaince + and urine with proteus 07/03/25 Dr Hollingsworth Procedure(s): Ultrasound-guided access of the right common femoral artery Aortogram 2 level angiogram left leg Intravascular ultrasound interpretation of left common femoral artery, left superficial femoral artery and left popliteal artery 6 [place] Angio-Seal closure of right common femoral arteriotomy Sharp excisional debridement of left transmetatarsal amputation stump site with 10 blade scalpel down to the level of the skin Application of negative pressure wound therapy wound measures 4.5 cm x 6 cm x 1 mm 07/04/25 postop with encephalopathy after sedation, evaluated by medicine/neuro pernursing 07/12/25 hyper K+ managed by medicine team; patient continues to consider options with case management; he does not have the assistance to do IV abx at home, no help or ability to make it to appts per him. Remained confused and agitated 07/14 per nursing; urine culture pending 07/17/25 sleepy at my visit; generally fatigued ; urine culture with yeast, nursing reports de los santos change 07/16; no fever, normal wbc, on room air; sleepy at my visit; pharmacy adjusting vancomycin; no rash; uop stable and no other focal pain per nursing; he won't participate with detailed ROS left lower extremity pain ongoing with palpation, generally better with pain meds and he won't attach a numerical severity Chronic De Los Santos catheter Per nursing, No fevers chills or sweats. No headache photophobia or neck stiffness. No shortness ofbreath cough or hemoptysis. Past Medical History: Diagnosis Date Anemia Cellulitis Diabetes mellitus Frequent falls History of DVT (deep vein thrombosis) Hyperlipidemia Hypertension Migraines Myocardial infarction Peripheral neuropathy Pneumonia Spinal stenosis Wears dentures FULL Wears glasses Past Surgical History: Procedure Laterality Date ABOVE KNEE AMPUTATION Right AMPUTATION DIGIT Left 01/28/2024 Procedure: SECOND AND THIRD TOE AMPUTATION LEFT; Surgeon: Cecil Buenrostro Jr., MD; Location: [facility]; Service: Orthopedics; Laterality: Left; ANTERIOR CERVICAL DISCECTOMY W/ FUSION Bilateral 07/17/2020 Procedure: Cervical discectomy anterior with fusion C3-4; Surgeon: Tyree Tan MD; Location:[facility]; Service: Neurosurgery; Laterality: Bilateral; AORTOGRAM N/A 01/26/2024 Procedure: ABDOMINAL AORTIC ANGIOGRAM, LLE ANGIOGRAM, LEFT ANTERIOR TIBIAL ATHERECTOMY, LEFT ANTERIOR TIBIAL ANGIOPLASTY; Surgeon: Archie Olvera MD; Location: [facility]; Service: Vascular; Laterality: N/A; CONTRAST: 50 ML, FT: 2 MIN 54 SEC, DOSE: 66 MGY. AORTOGRAM Left 07/03/2025 Procedure: ARTERIOGRAM LOWER EXTREMITY; Surgeon: Vaughn Hollingsworth DO; Location: [facility]; Service: Vascular; Laterality: Left; FT-6MINS 24SEC 140 MGY CONTRAST -15ML BACK SURGERY FOR DISC HERNIATION CARDIAC CATHETERIZATION CARDIAC CATHETERIZATION N/A 09/04/2024 Procedure: Peripheral angiography - Left lower extremity angio - Right femoral access; Surgeon: Jared Marcano MD; Location: [facility]ATION; Service: Peripheral Vascular; Laterality: N/A; CORONARY ANGIOPLASTY WITH STENT PLACEMENT stent x 1 INCISION AND DRAINAGE FOOT Left 06/17/2023 Procedure: LEFT FOOT DEBRIDEMENT WOUND VACUUM ASSISTED CLOSURE; Surgeon: Cecil Buenrostro Jr., MD;Location: [facility]; Service: Orthopedics; Laterality: Left; INCISION AND DRAINAGE LEG Left 07/25/2023 Procedure: INCISION AND DRAINAGE HEEL, WOUND VAC; Surgeon: Cecil Buenrostro Jr., MD; Location: [facility]; Service: Orthopedics; Laterality: Left; INCISION AND DRAINAGE LEG Left 07/03/2025 Procedure: DEBRIDEMENT WOUND, PLACEMENT OF WOUND VAC; Surgeon: Vaughn Hollingsworth DO; Location: [facility]; Service: Vascular; Laterality: Left; INTERVENTIONAL RADIOLOGY PROCEDURE N/A 05/02/2019 Procedure: IVC FILTER PLACEMENT; Surgeon: Pedro Zapien MD; Location: [facility] LOCATION; Service: Interventional Radiology INTERVENTIONAL RADIOLOGY PROCEDURE Left 09/07/2024 Procedure: LEFT peroneal arteriovenous fistula embolization - Right femoral access; Surgeon: Jared Marcano MD; Location: [facility] LOCATION; Service: Cardiovascular; Laterality: Left; Please coordinate with Gautamconor Patel ([facility] [phone] who will bring coils LUMBAR DISCECTOMY N/A 05/03/2019 Procedure: THORACIC LAMINECTOMY T11-12; Surgeon: Tyree Tan MD; Location: [facility]; Service: Neurosurgery Pediatric History Patient Parents Not on file Other Topics Concern Not on file Social History Narrative Not on file family history includes Alcohol abuse in his father. Allergies[1] Medication: Current Medications[2] Antibiotics: Anti-Infectives (From admission, onward) Ordered Dose/Rate Route Frequency Start Stop 06/26/25 0831 vancomycin (VANCOCIN) capsule 125 mg Ordering Provider: Vaughn Hollingsworth DO Placed in Followed by Linked [facility] 125 mg Oral Weekly 08/01/25 0900 09/19/25 0859 06/26/25 0831 vancomycin (VANCOCIN) capsule 125 mg Ordering Provider: Vaughn Hollingsworth DO Placed in Followed by Linked Group 125 mg Oral Daily 07/25/25 0900 08/01/25 0859 06/26/25 0831 vancomycin (VANCOCIN) capsule 125 mg Ordering Provider: Vaughn Hollingsworth DO Placed in Followed by Linked [facility] 125 mg Oral 2 Times Daily 07/17/25 2100 07/24/25205807/16/25812 micafungin sodium (MYCAMINE) 100 mg in sodium chloride 0.9 % 100 mL MBP Ordering Provider: Duglas Andres MD 100 mg Intravenous Once 07/16/25 0900 07/16/25 0920 07/14/25 0909 micafungin sodium (MYCAMINE) 100 mg in sodium chloride 0.9 % 100 mL MBP Ordering Provider: Duglas Andres MD 100 mg Intravenous Once 07/14/25 1000 07/14/25 1220 07/11/25 1101 Vancomycin HCl 1,250 mg in sodium chloride 0.9 % 250 mL VTB Ordering Provider: Osmany Mccann RPH 1,250 mg 200 mL/hr over 75 Minutes Intravenous Every 24 Hours 07/11/25 1200 07/21/25 1159 06/26/25 0831 vancomycin (VANCOCIN) capsule 125 mg Ordering Provider: Vaughn Hollingsworth DO Placed in Followed by [facility] 125 mg Oral 3 Times Daily 07/10/25 1600 07/17/25 1559 07/09/25 0813 vancomycin (dosing per levels) Status: Discontinued Ordering Provider: Osmany Mccann RPH Not Applicable Daily 07/09/25 0900 07/11/25 1101 07/03/25 0814 vancomycin (VANCOCIN) 1,000 mg in sodium chloride 0.9 % 250 mL IVPB-VTB Status: Discontinued Ordering Provider: Vaughn Hollingsworth DO 1,000 mg 250 mL/hr over 60 Minutes Intravenous Every 12 Hours 07/03/25 0900 07/09/25 0811 06/28/25 0724 vancomycin (VANCOCIN) 1,000 mg in sodium chloride 0.9 % 250 mL IVPB-VTB Status: Discontinued Ordering Provider: Duglas Andres MD 1,000 mg 250 mL/hr over 60 Minutes Intravenous Every 12 Hours 06/28/25 0900 07/03/25 0814 06/27/25 0812 Vancomycin HCl 1,250 mg in sodium chloride 0.9 % 250 mL VTB Status: Discontinued Ordering Provider: Osmany Mccann RPH 1,250 mg 200 mL/hr over 75 Minutes Intravenous Every 12 Hours 06/27/25 2100 06/27/25 0813 06/27/25 0813 Vancomycin HCl 1,250 mg in sodium chloride 0.9 % 250 mL VTB Status: Discontinued Ordering Provider: Siobhan, Osmany H, RPH 1,250 mg 200 mL/hr over 75 Minutes Intravenous Every 12 Hours 06/27/25 2100 06/28/25 0724 06/27/25 0856 vancomycin 2500 mg/500 mL 0.9% NS IVPB ([facility]) Ordering Provider: Osmany Mccann RPH 2,500 mg over 150 Minutes Intravenous Once 06/27/25 0945 06/27/25 1150 06/27/25 0808 vancomycin 2250 mg/500 mL 0.9% NS IVPB ([facility]) Status: Discontinued Ordering Provider: Osmany Mccann RPH 2,250 mg over 135 Minutes Intravenous Once 06/27/25 0900 06/27/25 0856 06/27/25 0739 Pharmacy to dose vancomycin Ordering Provider: Vaughn Hollingsworth, DO Not Applicable Continuous PRN 06/27/25 0739 07/11/25 0738 06/25/25 2312 DAPTOmycin (CUBICIN) 550 mg in sodium chloride 0.9 % 50 mL IVPB Status: Discontinued Ordering Provider: Amanda Bermudez MD 6 mg/kg ?? 94.6 kg (Adjusted) 100 mL/hr over 30 Minutes Intravenous Every 24 Hours 06/26/25 2100 06/27/25 0739 06/26/25 0847 meropenem (MERREM) 500 mg in sodium chloride 0.9 % 100 mL MBP Ordering Provider: Duglas Andres MD 500 mg over 3 Hours Intravenous Every 6 Hours 06/26/25 1600 07/30/25 1959 06/25/25 2303 piperacillin-tazobactam (ZOSYN) 4.5 g IVPB in 100 mL NS MBP (CD) Status: Discontinued Ordering Provider: Amanda Bermudez MD 4.5 g over 4 Hours Intravenous Every 8 Hours 06/26/25 1200 06/26/25 0846 06/26/25 0831 vancomycin (VANCOCIN) capsule 125 mg Ordering Provider: Vaughn Hollingsworth, Placed in Followed by Linked Group 125 mg Oral 4 Times Daily 06/26/25 1200 07/10/25 1159 06/26/25 0847 meropenem (MERREM) 500 mg in sodium chloride 0.9 % 100 mL MBP Ordering Provider: Duglas Andres MD 500 mg over 30 Minutes Intravenous Once 06/26/25 0945 06/26/25 1047 06/26/25 0833 micafungin sodium (MYCAMINE) 100 mg in sodium chloride 0.9 % 100 mL MBP Ordering Provider: Duglas Andres MD 100 mg Intravenous Once 06/26/25 0930 06/26/25 0850 06/26/25 0113 methenamine (HIPREX) tablet 1 g Ordering Provider: Vaughn Hollingsworth, 1 g Oral 2 Times Daily With Meals 06/26/25 0806/25/252302 piperacillin-tazobactam (ZOSYN) 3.375 g IVPB in 100 mL NS MBP (CD) Status: Discontinued Ordering Provider: Amanda Bermudez MD 3.375 g over 30 Minutes Intravenous Once 06/26/25 0606/25/25231106/25/252311 piperacillin-tazobactam (ZOSYN) 4.5 g IVPB in 100 mL NS MBP (CD) Ordering Provider: Amanda Bermudez MD 4.5 g over 30 Minutes Intravenous Once 06/26/2559906/26/2559906/25/252111 DAPTOmycin (CUBICIN) 550 mg in sodium chloride 0.9 % 50 mL IVPB Ordering Provider: Ally Jeffers APRN 6 mg/kg ?? 94.6 kg (Adjusted) 100 mL/hr over 30 Minutes Intravenous Once 06/25/25212706/25/25230606/25/252111 meropenem (MERREM) 1,000 mg in sodium chloride 0.9 % 100 mL MBP Ordering Provider: Ally Jeffers APRN 1,000 mg over 30 Minutes Intravenous Once 06/25/25212706/25/252236 Review of Systems 07/17/25 Constitutional-- No Fever, chills or sweats. Appetite good, and no malaise. No fatigue. Heent-- No new vision, hearing or throat complaints. No epistaxis or oral sores. Denies odynophagiaor dysphagia. No flashers, floaters or eye pain. No odynophagia or dysphagia. No headache, photophobia or neck stiffness. CV-- No chest pain, palpitation or syncope Resp-- No SOB/cough/Hemoptysis GI- No hematochezia, melena, or hematemesis. Denies jaundice or chronic liver disease. -- chronic De Los Santos catheter, denies flank pain Lymph- no swollen lymph nodes in neck/axilla or groin. Heme- No active bruising or bleeding; no Hx of DVT or PE. MS-- no swelling or pain in the bones or joints of arms/legs. No new back pain. Neuro-- No acute focal weakness or numbness in the arms or legs. Chronically debilitated Full 12 point review of systems reviewed and negative otherwise for acute complaints, except for above Physical Exam: Vital Signs BP 165/71 (BP Location: Right arm, Patient Position: Lying) Pulse 83 Temp 97.8 ??F (36.6 ??C) (Oral) Resp 16 Ht 182.9 cm (72 ) Wt 120 kg (264 lb 5.3 oz) SpO2 97% BMI 35.85 kg/m?? GENERAL: sleepy but arousable and interacting HEENT: Normocephalic, atraumatic. No conjunctival injection. No icterus. Oropharynx clear without evidence of thrush or exudate. No evidence of periodontal disease. NECK: Supple without nuchal rigidity. No mass. HEART: RRR; No murmur, rubs, gallops. LUNGS: diminished at bases; Clear to auscultation bilaterally without wheezing, rales, rhonchi. Normal respiratory effort. Nonlabored. No dullness. ABDOMEN: Soft, nontender, nondistended. Positive bowel sounds. No rebound or guarding. NO mass or HSM. EXT: see below : With De Los Santos catheter. MSK: FROM without joint effusions noted arms/legs. SKIN: Warm and dry without cutaneous eruptions on Inspection/palpation. NEURO: sleepy Left foot amputation noted surgical site covered. Vague erythema LLE but no discrete mass bulge or fluctuance. No crepitus or bulla Right side amputation no obvious open wound or new redness/induration Laboratory Data Results from last 7 days Lab Units 07/17/25 0548 07/16/25 0447 07/15/25 0432 WBC 10*3/mm3 7.10 6.76 8.08 HEMOGLOBIN g/dL 9.3* 8.9* 8.9* HEMATOCRIT % 31.1* 30.2* 30.1* PLATELETS 10*3/mm3 211 185 210 Results from last 7 days Lab Units 07/17/25 0548 SODIUM mmol/L 139 POTASSIUM mmol/L 5.2 CHLORIDE mmol/L 109* CO2 mmol/L 19.1* BUN mg/dL 21.8 CREATININE mg/dL 0.89 GLUCOSE mg/dL 132* CALCIUM mg/dL 8.8 Estimated Creatinine Clearance: 101.9 mL/min (by C-G formula based on SCr of 0.89 mg/dL). Microbiology: Radiology: Imaging Results (Last 72 Hours) No results found for the last 72 hours. Impression: --acute left lower leg/foot cellulitis and wound infection, prior culture July 2024 with ESBL Klebsiella pneumoniae and pseudomonas aeruginosa, pseudomonas was sensitive to Merrem per microbiology lab at [facility]. Cx at [facility] as below; He has had multiple surgeries and multiple p ractitioners recommend higher level amputation which he has refused. On prior admissions, he has refused outpatient IV antibiotics and he has refused placement for longer durations of IV antibiotics.This refusal of care has placed him at increased risk for poor outcome. Earlier in 2024 he was discharged to the care of Dr. Oneal, his outpatient ID doctor and Dr Faust his automobile travel club counselor for furthercare/workup ; readmission May 2025 and June 2025 with acute worsening in redness/drainage to left lower extremity. Surgery as above and ongoing IV abx, admission associated with bacteremia and mixed/MDR organisms; High risk for further serious morbidity and other serious sequela including p ersistent/recurrent or nonhealing wounds, persistent/progressive or recurrent infection and risk for further functional/limb loss, higher-level amputation and other dire consequences including sepsis/mortalityetc. he remains opposed to amputation; he voices understanding his poor prognosis overall including risks for dire consequences; past Cx with MRSA/PSA/ESBL at prior admissions; culture June 02, 2025 with Proteus/MRSA/PSA; Cx June 2025 below; further imaging no definitive osteomyelitis but also unable to exclude per radiology at distal first/second MT; surgery with I&D 07/03 but no further bone debridement/amputation --E Faecium bacteremia ; NOT vanco resistant; ?foot source -v- other --Acute hematuria/UTI with chronic indwelling De [place] Santos catheter. Proteus in culture previously; nursing reports De Los Santos catheter change earlier in admission; repeat urine 07/14 with yeast, ?colonizer -v- evolving UTI, de los santos to change and empiric mycamine x 1 then monitor; if stronger evidence for yeast as pathogen then may need ampho b prooduct if not responding to echinocnadin given Hx QT prolongation --Acute diarrhea, Norovirus + and C. Difficile PCR +, although toxin antigen negative earlier in stay. He has risk for active disease and does have symptomatology and requires antibiotics for other processes, and therefore oral vancomycin added although unable to definitively confirm active diseasewith toxin antigen negative ( although risk for false negative); supportive care ongoing --MRSA surveillance + --Peripheral arterial disease by past evaluation of vascular team in addition to history DVT. 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 He does not have enough assistanceat home to do IV abx at home per him; case management and palliative teams following --mycamine IV ;de los santos change again 07/16 wound culture June 02, 2025 with Proteus /MRSA, PSA urine culture June 02, 2025 E Coli/ESBL Proteus urine culture 06/25 proteus blood culture 06/25 E Faecium vanco/amp sensitive; dapto sens but dose dependent wound culture 06/25 (surface) with MRSA and ESBL proteus and morganella --Check/review labs cultures and scans --Partial history [...] transitions of care for this complex patient. Duglas Andres MD 07/17/2025 [1] Allergies Allergen Reactions Keppra [Levetiracetam] Other (See Comments) Acute psychosis Bupropion Unknown (See Comments) Codeine Nausea Only Hydrocodone Unknown (See Comments) Ketorolac Tromethamine Unknown (See Comments) [2] Current Facility-Administered Medications Medication Dose Route Frequency Provider Last Rate Last Admin acetaminophen (TYLENOL) tablet 650 mg 650 mg Oral Q4H PRN Amanda Bermudez MD 650 mg at 06/29/25 0343 Or acetaminophen (TYLENOL) 160 MG/5ML oral solution 650 mg 650 mg Oral Q4H PRN Amanda Bermudez MD Or acetaminophen (TYLENOL) suppository 650 mg 650 mg Rectal Q4H PRN Amanda Bermudez MD aluminum-magnesium hydroxide-simethicone (MAALOX MAX) 400-400-40 MG/5ML suspension 15 mL 15 mL [id number] PRN Amanda Bermudez MD [Held by provider] apixaban (ELIQUIS) tablet 5 mg 5 mg Oral BID Amanda Bermudez MD ascorbic acid (VITAMIN C) tablet 500 mg 500 mg Oral Daily Amanda Bermudez MD 500 mg at 07/01/25 0830 baclofen (LIORESAL) tablet 10 mg 10 mg Oral Q12H Amanda Bermudez MD 10 mg at 07/01/25 2144 sennosides-docusate (PERICOLACE) 8.6-50 MG per tablet 2 tablet 2 tablet Oral BID PRN Amanda Bermudez MD And polyethylene glycol (MIRALAX) packet 17 g 17 g Oral Daily PRN Amanda Bermudez MD And bisacodyl (DULCOLAX) EC tablet 5 mg 5 mg Oral Daily PRN Amanda Bermudez MD And bisacodyl (DULCOLAX) suppository 10 mg 10 mg Rectal Daily PRN Amanda Bermudez MD Calcium Replacement - Follow Nurse / BPA Driven Protocol Not Applicable PRN Amanda Bermudez MD carvedilol (COREG) tablet 3.125 mg 3.125 mg Oral BID With Meals Bermudez, Amanda, MD 3.125 mg at 07/01/25 1712 clopidogrel (PLAVIX) tablet 75 mg 75 mg Oral Daily Amanda Bermudez MD 75 mg at 07/01/25 0830 famotidine (PEPCID) tablet 20 mg 20 mg Oral BID AC Arnoldo Crews PharmD 20 mg at 07/02/25 0649 finasteride (PROSCAR) tablet 5 mg 5 mg Oral Daily Amanda Bermudez MD 5 mg at 07/01/25 0830 folic acid (FOLVITE) tablet 1 mg 1 mg Oral Daily Amanda Bermudez MD 1 mg at 07/01/25 0830 gabapentin (NEURONTIN) capsule 300 mg 300 mg Oral Q8H Milena Jo APRN 300 mg at 07/02/25 0649 heparin (porcine) 5000 UNIT/ML injection 5,000 Units 5,000 Units Subcutaneous Q8H Lupe Albert APRN 5,000 Units at 07/02/25 0649 influenza vac split high-dose (FLUZONE HIGH DOSE) injection 0.5 mL 0.5 mL Intramuscular During Hospitalization Kris Boston DO insulin glargine (LANTUS, SEMGLEE) injection 56 Units 56 Units Subcutaneous Nightly Amanda Bermudez MD 56 Units at 07/01/25 2145 ipratropium-albuterol (DUO-NEB) nebulizer solution 3 mL 3 mL Nebulization Q6H PRN Amanda Bermudez MD lamoTRIgine (LaMICtal) tablet 100 mg 100 mg Oral Daily Amanda Bermudez MD 100 mg at 07/01/25 0830 lamoTRIgine (LaMICtal) tablet 250 mg 250 mg Oral Nightly Amanda Bermudez MD 250 mg at 07/01/25 2144 Magnesium Cardiology Dose Replacement - Follow Nurse / BPA Driven Protocol Not Applicable PRN Amanda Bermudez MD meropenem (MERREM) 500 mg in sodium chloride 0.9 % 100 mL MBP 500 mg Intravenous Q6H Duglas Andres MD 500 mg at 07/02/25 0359 methenamine (HIPREX) tablet 1 g 1 g Oral BID With Meals Amanda Bermudez MD 1 g at 07/01/25 1713 multivitamin with minerals 1 tablet 1 tablet Oral Daily Amanda Bermudez MD 1 tablet at 07/01/25 0830 naloxone (NARCAN) injection 0.4 mg 0.4 mg Intravenous Q5 Min PRN Amanda Bermudez MD nitroglycerin (NITROSTAT) SL tablet 0.4 mg 0.4 mg Sublingual Q5 Min PRN Amanda Bermudez MD ondansetron (ZOFRAN) injection 4 mg 4 mg Intravenous Q6H PRN Amanda Bermudez MD 4 mg at 06/29/25 1646 oxyCODONE-acetaminophen (PERCOCET) 10-325 MG per tablet 1 tablet 1 tablet Oral Q6H PRN Kris Boston DO 1 tablet at 07/02/25 0125 Pharmacy to dose vancomycin Not Applicable Continuous PRN Duglas Andres MD Phosphorus Replacement - Follow Nurse / BPA Driven Protocol Not Applicable PRN Amanda Bermudez MD Potassium Replacement - Follow Nurse / BPA Driven Protocol Not Applicable PRN Amanda Bermudez MD sacubitril-valsartan (ENTRESTO) 24-26 MG tablet 1 tablet 1 tablet Oral BID Amanda Bermudez MD 1 tablet at 07/01/25 2144 sodium chloride 0.9 % flush 10 mL 10 mL Intravenous PRN Ally Jeffers V, DIABETES NURSE sodium chloride 0.9 % flush 10 mL 10 mL Intravenous Q12H Amanda Bermudez MD 10 mL at 07/01/25 0832 sodium chloride 0.9 % flush 10 mL 10 mL Intravenous PRN Amanda Bermudez MD sodium chloride 0.9 % flush 10 mL 10 mL Intravenous Q12H Duglas Andres MD 10 mL at 07/01/25 2145 sodium chloride 0.9 % flush 10 mL 10 mL Intravenous PRN Duglas Andres MD sodium chloride 0.9 % flush 20 mL 20 mL Intravenous PRN Duglas Andres MD sodium chloride 0.9 % infusion 40 mL 40 mL Intravenous PRN Duglas Andres MD vancomycin (VANCOCIN) 1,000 mg in sodium chloride 0.9 % 250 mL IVPB-VTB 1,000 mg Intravenous Q12H Osmany Mccann RPH 250 mL/hr at 07/01/252142 1,000 mg at 07/01/252142 vancomycin (VANCOCIN) capsule 125 mg 125 mg Oral 4x Daily Duglas Andres MD 125 mg at Followed by [START ON 07/10/2025] vancomycin (VANCOCIN) capsule 125 mg 125 mg Oral TID Duglas Andres MD Followed by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 recurrent UTI, C. Difficile PCR positivity (toxin neg) and left lower extremity infection. Patient reports De Los Santos catheter change in its entirety since readmission. 06/27/25 stool with norovirus, CDiff PCR + (toxin neg), blood culture with enterococcus sp (NOT vanco resistant by PCR), MRSA survellaince + and urine with proteus 07/03/25 Dr Hollingsworth Procedure(s): Ultrasound-guided access of the right common femoral artery Aortogram 2 level angiogram left leg Intravascular ultrasound interpretation of left common femoral artery, left superficial femoral artery and left popliteal artery 6 [place] Angio-Seal closure of right common femoral arteriotomy Sharp excisional debridement of left transmetatarsal amputation stump site with 10 blade scalpel down to the level of the skin Application of negative pressure wound therapy wound measures 4.5 cm x 6 cm x 1 mm 07/04/25 postop with encephalopathy after sedation, evaluated by medicine/neuro pernursing 07/12/25 hyper K+ managed by medicine team; patient continues to consider options with case management; he does not have the assistance to do IV abx at home, no help or ability to make it to appts per him. Remained confused and agitated 07/14 per nursing; urine culture pending, no fever, normal wbc, on room air; sleepy at my visit; pharmacy adjusting vancomycin; no rash; uop stable and no other focal pain per nursing; he won't participate with detailed ROS left lower extremity pain ongoing with palpation, generally better with pain meds and he won't attach a numerical severity Chronic De Los Santos catheter Per nursing, No fevers chills or sweats. No headache photophobia or neck stiffness. No shortness ofbreath cough or hemoptysis. Past Medical History: Diagnosis Date Anemia Cellulitis Diabetes mellitus Frequent falls History of DVT (deep vein thrombosis) Hyperlipidemia Hypertension Migraines Myocardial infarction Peripheral neuropathy Pneumonia Spinal stenosis Wears dentures FULL Wears glasses Past Surgical History: Procedure Laterality Date ABOVE KNEE AMPUTATION Right AMPUTATION DIGIT Left 01/28/2024 Procedure: SECOND AND THIRD TOE AMPUTATION LEFT; Surgeon: Cecil Buenrostro Jr., MD; Location: [facility]; Service: Orthopedics; Laterality: Left; ANTERIOR CERVICAL DISCECTOMY W/ FUSION Bilateral 07/17/2020 Procedure: Cervical discectomy anterior with fusion C3-4; Surgeon: Tyree Tan MD; Location:[facility]; Service: Neurosurgery; Laterality: Bilateral; AORTOGRAM N/A 01/26/2024 Procedure: ABDOMINAL AORTIC ANGIOGRAM, LLE ANGIOGRAM, LEFT ANTERIOR TIBIAL ATHERECTOMY, LEFT ANTERIOR TIBIAL ANGIOPLASTY; Surgeon: Archie Olvera MD; Location: [facility]BR[facility] OR; Service: Vascular; Laterality: N/A; CONTRAST: 50 ML, FT: 2 MIN 54 SEC, DOSE: 66 MGY. AORTOGRAM Left 07/03/2025 Procedure: ARTERIOGRAM LOWER EXTREMITY; Surgeon: Vaughn Hollingsworth DO; Location: [facility]; Service: Vascular; Laterality: Left; FT-6MINS 24SEC 140 MGY CONTRAST -15ML BACK SURGERY FOR DISC HERNIATION CARDIAC CATHETERIZATION CARDIAC CATHETERIZATION N/A 09/04/2024 Procedure: Peripheral angiography - Left lower extremity angio - Right femoral access; Surgeon: Jared Marcano MD; Location: [facility] LOCATION; Service: Peripheral Vascular; Laterality: N/A; CORONARY ANGIOPLASTY WITH STENT PLACEMENT stent x 1 INCISION AND DRAINAGE FOOT Left 06/17/2023 Procedure: LEFT FOOT DEBRIDEMENT WOUND VACUUM ASSISTED CLOSURE; Surgeon: Cecil Buenrostro Jr., MD;Location: [facility] OR; Service: Orthopedics; Laterality: Left; INCISION AND DRAINAGE LEG Left 07/25/2023 Procedure: INCISION AND DRAINAGE HEEL, WOUND VAC; Surgeon: Cecil Buenrostro Jr., MD; Location: [facility] OR; Service: Orthopedics; Laterality: Left; INCISION AND DRAINAGE LEG Left 07/03/2025 Procedure: DEBRIDEMENT WOUND, PLACEMENT OF WOUND VAC; Surgeon: Vaughn Hollingsworth DO; Location: [facility]; Service: Vascular; Laterality: Left; INTERVENTIONAL RADIOLOGY PROCEDURE N/A 05/02/2019 Procedure: IVC FILTER PLACEMENT; Surgeon: Pedro Zapien MD; Location: [facility]; Service: Interventional Radiology INTERVENTIONAL RADIOLOGY PROCEDURE Left 09/07/2024 Procedure: LEFT peroneal arteriovenous fistula embolization - Right femoral access; Surgeon: Jared Marcano MD; Location: [facility] LOCATION; Service: Cardiovascular; Laterality: Left; Please coordinate with Gautam Patel ([facility]) [phone] who will bring coils LUMBAR DISCECTOMY N/A 05/03/2019 Procedure: THORACIC LAMINECTOMY T11-12; Surgeon: Tyree Tan MD; Location: [facility] OR; Service: Neurosurgery Pediatric History Patient Parents Not on file Other Topics Concern Not on file Social History Narrative Not on file family history includes Alcohol abuse in his father. Allergies[1] Medication: Current Medications[2] Antibiotics: Anti-Infectives (From admission, onward) Ordered Dose/Rate Route Frequency Start Stop 06/26/25 0831 vancomycin (VANCOCIN) capsule 125 mg Ordering Provider: Vaughn Hollingsworth DO Placed in Followed by Linked Group 125 mg Oral Weekly 08/01/25 0900 09/19/25 0859 06/26/25 0831 vancomycin (VANCOCIN) capsule 125 mg Ordering Provider: Vaughn Hollingsworth DO Placed in Followed by Linked Group 125 mg Oral Daily 07/25/25 0900 08/01/25 0859 06/26/25 0831 vancomycin (VANCOCIN) capsule 125 mg Ordering Provider: Vaughn Hollingsworth DO Placed in Followed by Linked Group 125 mg Oral 2 Times Daily 07/17/25 2100 07/24/25 2059 07/14/25 0909 micafungin sodium (MYCAMINE) 100 mg in sodium chloride 0.9 % 100 mL MBP Ordering Provider: Duglas Andres MD 100 mg Intravenous Once 07/14/25 1000 07/14/25 1220 07/11/25 1101 Vancomycin HCl 1,250 mg in sodium chloride 0.9 % 250 mL VTB Ordering Provider: Osmany Mccann RPH 1,250 mg 200 mL/hr over 75 Minutes Intravenous Every 24 Hours 07/11/25 1200 07/21/25 1159 06/26/25 0831 vancomycin (VANCOCIN) capsule 125 mg Ordering Provider: Vuaghn Hollingsworth DO Placed in Followed by Linked Group 125 mg Oral 3 Times Daily 07/10/25 1600 07/17/25 1559 07/09/25 0813 vancomycin (dosing per levels) Status: Discontinued Ordering Provider: Osmany Mccann RPH Not Applicable Daily 07/09/25 0900 07/11/25 1101 07/03/25 0814 vancomycin (VANCOCIN) 1,000 mg in sodium chloride 0.9 % 250 mL IVPB-VTB Status: Discontinued Ordering Provider: Vaughn Hollingsworth DO 1,000 mg 250 mL/hr over 60 Minutes Intravenous Every 12 Hours 07/03/25 0900 07/09/25 0811 06/28/25 0724 vancomycin (VANCOCIN) 1,000 mg in sodium chloride 0.9 % 250 mL IVPB-VTB Status: Discontinued Ordering Provider: Duglas Andres MD 1,000 mg 250 mL/hr over 60 Minutes Intravenous Every 12 Hours 06/28/25 0900 07/03/25 0814 06/27/25 0812 Vancomycin HCl 1,250 mg in sodium chloride 0.9 % 250 mL VTB Status: Discontinued Ordering Provider: Osmany Mccann RPH 1,250 mg 200 mL/hr over 75 Minutes Intravenous Every 12 Hours 06/27/25 2100 06/27/25 0813 06/27/25 0813 Vancomycin HCl 1,250 mg in sodium chloride 0.9 % 250 mL VTB Status: Discontinued Ordering Provider: Osmany Mccann RPH 1,250 mg 200 mL/hr over 75 Minutes Intravenous Every 12 Hours 06/27/25 2100 06/28/25 0724 06/27/25 0856 vancomycin 2500 mg/500 mL 0.9% NS IVPB ([facility]) Ordering Provider: Osmany Mccann RPH 2,500 mg over 150 Minutes Intravenous Once 06/27/25 0945 06/27/25 1150 06/27/25 0808 vancomycin 2250 mg/500 mL 0.9% NS IVPB ([facility]) Status: Discontinued Ordering Provider: Osmany Mccann RPH 2,250 mg over 135 Minutes Intravenous Once 06/27/25 0900 06/27/25 0856 06/27/25 0739 Pharmacy to dose vancomycin Ordering Provider: Vaughn Hollingsworth, DO Not Applicable Continuous PRN 06/27/25 0739 07/11/25 0738 06/25/25 2312 DAPTOmycin (CUBICIN) 550 mg in sodium chloride 0.9 % 50 mL IVPB Status: Discontinued Ordering Provider: Amanda Bermudez MD 6 mg/kg ?? 94.6 kg (Adjusted) 100 mL/hr over 30 Minutes Intravenous Every 24 Hours 06/26/25 2100 06/27/25 0739 06/26/25 0847 meropenem (MERREM) 500 mg in sodium chloride 0.9 % 100 mL MBP Ordering Provider: Duglas Andres MD 500 mg over 3 Hours Intravenous Every 6 Hours 06/26/25 1600 07/30/25 1959 06/25/25 2303 piperacillin-tazobactam (ZOSYN) 4.5 g IVPB in 100 mL NS MBP (CD) Status: Discontinued Ordering Provider: Amanda Bermudez MD 4.5 g over 4 Hours Intravenous Every 8 Hours 06/26/25 1200 06/26/25 0846 06/26/25 0831 vancomycin (VANCOCIN) capsule 125 mg Ordering Provider: Vaughn Hollingsworth DO Placed in Followed by Linked Group 125 mg Oral 4 Times Daily 06/26/25 1200 07/10/25 1159 06/26/25 0847 meropenem (MERREM) 500 mg in sodium chloride 0.9 % 100 mL MBP Ordering Provider: Duglas Andres MD 500 mg over 30 Minutes Intravenous Once 06/26/25 0945 06/26/25 1047 06/26/25 0833 micafungin sodium (MYCAMINE) 100 mg in sodium chloride 0.9 % 100 mL MBP Ordering Provider: Duglas Andres MD 100 mg Intravenous Once 06/26/25 0930 06/26/25 0850 06/26/25 0113 methenamine (HIPREX) tablet 1 g Ordering Provider: Vaughn Hollingsworth DO 1 g Oral 2 Times Daily With Meals 06/26/25 0800 06/25/25 230 piperacillin-tazobactam (ZOSYN) 3.375 g IVPB in 100 mL NS MBP (CD) Status: Discontinued Ordering Provider: Amanda Bermudez MD 3.375 g over 30 Minutes Intravenous Once 06/26/25 0600 06/25/25 2312 06/25/25 231 piperacillin-tazobactam (ZOSYN) 4.5 g IVPB in 100 mL NS MBP (CD) Ordering Provider: Amanda Bermudez MD 4.5 g over 30 Minutes Intravenous Once 06/26/25 0600 06/26/25 0600 06/25/252111 DAPTOmycin (CUBICIN) 550 mg in sodium chloride 0.9 % 50 mL IVPB Ordering Provider: Ally Jeffers APRN 6 mg/kg ?? 94.6 kg (Adjusted) 100 mL/hr over 30 Minutes Intravenous Once 06/25/25212706/25/25230606/25/252111 meropenem (MERREM) 1,000 mg in sodium chloride 0.9 % 100 mL MBP Ordering Provider: Ally Jeffers APRN 1,000 mg over 30 Minutes Intravenous Once 06/25/25212706/25/252236 Review of Systems 07/15/25 otherwise unable Physical Exam: Vital Signs BP 154/78 (BP Location: Right arm, Patient Position: Lying) Pulse 88 Temp 98.2 ??F (36.8 ??C) (Oral) Resp 18 Ht 182.9 cm (72 ) Wt 116 kg (254 lb 13.6 oz) SpO2 96% BMI 34.56 kg/m?? GENERAL: sleepy HEENT: Normocephalic, atraumatic. No conjunctival injection. No icterus. Oropharynx clear without evidence of thrush or exudate. No evidence of periodontal disease. NECK: Supple without nuchal rigidity. No mass. HEART: RRR; No murmur, rubs, gallops. LUNGS: diminished at bases; Clear to auscultation bilaterally without wheezing, rales, rhonchi. Normal respiratory effort. Nonlabored. No dullness. ABDOMEN: Soft, nontender, nondistended. Positive bowel sounds. No rebound or guarding. NO mass or HSM. EXT: see below : With De Los Santos catheter. MSK: FROM without joint effusions noted arms/legs. SKIN: Warm and dry without cutaneous eruptions on Inspection/palpation. NEURO: sleepy Left foot amputation noted surgical site covered. Vague erythema LLE but no discrete mass bulge or fluctuance. No crepitus or bulla Right side amputation no obvious open wound or new redness/induration Laboratory Data Results from last 7 days Lab Units 07/15/25 0432 07/14/25 0425 07/13/25 0808 WBC 10*3/mm3 8.08 8.27 6.58 HEMOGLOBIN g/dL 8.9* 9.2* 9.4* HEMATOCRIT % 30.1* 30.9* 30.1* PLATELETS 10*3/mm3 210 251 256 Results from last 7 days Lab Units 07/15/25 0432 SODIUM mmol/L 139 POTASSIUM mmol/L 4.8 CHLORIDE mmol/L 111* CO2 mmol/L 18.8* BUN mg/dL 25.4* CREATININE mg/dL 0.74* GLUCOSE mg/dL 98 CALCIUM mg/dL 8.6 Estimated Creatinine Clearance: 120.4 mL/min (A) (by C-G formula based on SCr of 0.74 mg/dL (L)). Microbiology: Radiology: Imaging Results (Last 72 Hours) No results found for the last 72 hours. Impression: --acute left lower leg/foot cellulitis and wound infection, prior culture July 2024 with ESBL Klebsiella pneumoniae and pseudomonas aeruginosa, pseudomonas was sensitive to Merrem per microbiology lab at [facility]. Cx at [facility] as below; He has had multiple surgeries and multiple p ractitioners recommend higher level amputation which he has refused. On prior admissions, he has refused outpatient IV antibiotics and he has refused placement for longer durations of IV antibiotics.This refusal of care has placed him at increased risk for poor outcome. Earlier in 2024 he was discharged to the care of Dr. Oneal, his outpatient ID doctor and Dr Faust his automobile travel club counselor for furthercare/workup ; readmission May 2025 and June 2025 with acute worsening in redness/drainage to left lower extremity. Surgery as above and ongoing IV abx, admission associated with bacteremia and mixed/MDR organisms; High risk for further serious morbidity and other serious sequela including p ersistent/recurrent or nonhealing wounds, persistent/progressive or recurrent infection and risk for further functional/limb loss, higher-level amputation and other dire consequences including sepsis/mortalityetc. he remains opposed to amputation; he voices understanding his poor prognosis overall including risks for dire consequences; past Cx with MRSA/PSA/ESBL at prior admissions; culture June 02, 2025 with Proteus/MRSA/PSA; Cx June 2025 below; further imaging no definitive osteomyelitis but also unable to exclude per radiology at distal first/second MT; surgery with I&D 07/03 but no further bone debridement/amputation --E Faecium bacteremia ; NOT vanco resistant; ?foot source -v- other --Acute hematuria/UTI with chronic indwelling De Los Santos catheter. Proteus in culture so far; nursing reports De Los Santos catheter has been changed since admission; urology evaluation for further consideration of cystoscopy versus SP catheter or other; urine microscopic with yeast and potential for yeast colon ization/contaminant --Acute diarrhea, Norovirus + and C. Difficile PCR +, although toxin antigen negative. He has risk for active disease and does have symptomatology and requires antibiotics for other processes, and therefore oral vancomycin added although unable to definitively confirm active disease with toxin antigen negative ( although risk for false negative); supportive care ongoing --MRSA surveillance + --Peripheral arterial disease by past evaluation of vascular team in addition to history DVT. 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; postop after 07/03 surgery with decreased LOC, seen bymedicine and adjustments per them in medications; further neuro workup per medicine / neuro team; awake/interactive as of my 07/05 visit --Hx QTc > 500 ms on prior EKG PLAN: --IV vancomycin/merrem, oral vancomycin; likely to need IV abx in light of bacteremia/abnormal MRI as previously noted; final duration could depend on his surgical decisions, if he has BKA/AKA then he may not need quite as long a duration of antibiotics in light of focus removal at that point; he would need to finish duration for bacteremia; again, final duration to depend on clinical course/surgical plans/patient goals of care etc. He does not have enough assistance at home to do IV abx at home per him; case management and palliative teams following --mycamine IV x 1 07/14 while culture data pending; IF fever or other clinical decline you could consider scans/blood cultures to r/o other occult focus, other empiric medication adjustments, etc.. wound culture June 02, 2025 with Proteus /MRSA, PSA urine culture June 02, 2025 E Coli/ESBL Proteus urine culture 06/25 proteus blood culture 06/25 E Faecium vanco/amp sensitive; dapto sens but dose dependent wound culture 06/25 (surface) with MRSA and ESBL proteus and morganella --Check/review labs cultures and scans --Partial history [...] transitions of care for this complex patient. Duglas Andres MD 07/15/2025 [1] Allergies Allergen Reactions Keppra [Levetiracetam] Other (See Comments) Acute psychosis Bupropion Unknown (See Comments) Codeine Nausea Only Hydrocodone Unknown (See Comments) Ketorolac Tromethamine Unknown (See Comments) [2] Current Facility-Administered Medications Medication Dose Route Frequency Provider Last Rate Last Admin acetaminophen (TYLENOL) tablet 650 mg 650 mg Oral Q4H PRN Amanda Bermudez MD 650 mg at 06/29/25 0343 Or acetaminophen (TYLENOL) 160 MG/5ML oral solution 650 mg 650 mg Oral Q4H PRN Amanda Bermudez MD Or acetaminophen (TYLENOL) suppository 650 mg 650 mg Rectal Q4H PRN Amanda Bermudez MD aluminum-magnesium hydroxide-simethicone (MAALOX MAX) 400-400-40 MG/5ML suspension 15 mL 15 mL [id number] PRN Amanda Bermudez MD [Held by provider] apixaban (ELIQUIS) tablet 5 mg 5 mg Oral BID Amanda Bermudez MD ascorbic acid (VITAMIN C) tablet 500 mg 500 mg Oral Daily Amanda Bermudez MD 500 mg at 07/01/25 0830 baclofen (LIORESAL) tablet 10 mg 10 mg Oral Q12H Amanda Bermudez MD 10 mg at 07/01/25 2144 sennosides-docusate (PERICOLACE) 8.6-50 MG per tablet 2 tablet 2 tablet Oral BID PRN Amanda Bermudez MD And polyethylene glycol (MIRALAX) packet 17 g 17 g Oral Daily PRN Amanda Bermudez MD And bisacodyl (DULCOLAX) EC tablet 5 mg 5 mg Oral Daily PRN Amanda Bermudez MD And bisacodyl (DULCOLAX) suppository 10 mg 10 mg Rectal Daily PRN Amanda Bermudez MD Calcium Replacement - Follow Nurse / BPA Driven Protocol Not Applicable PRN Amanda Bermudez MD carvedilol (COREG) tablet 3.125 mg 3.125 mg Oral BID With Meals Amanda Bermudez MD 3.125 mg at 07/01/25 1712 clopidogrel (PLAVIX) tablet 75 mg 75 mg Oral Daily Amanda Bermudez MD 75 mg at 07/01/25 0830 famotidine (PEPCID) tablet 20 mg 20 mg Oral BID AC Arnoldo Crews PharmD 20 mg at 07/02/25 0649 finasteride (PROSCAR) tablet 5 mg 5 mg Oral Daily Amanda Bermudez MD 5 mg at 07/01/25 0830 folic acid (FOLVITE) tablet 1 mg 1 mg Oral Daily Amanda Bermudez MD 1 mg at 07/01/25 0830 gabapentin (NEURONTIN) capsule 300 mg 300 mg Oral Q8H Milena Jo APRN 300 mg at 07/02/25 0649 heparin (porcine) 5000 UNIT/ML injection 5,000 Units 5,000 Units Subcutaneous Q8H Lupe Albert APRN 5,000 Units at 07/02/25 0649 influenza vac split high-dose (FLUZONE HIGH DOSE) injection 0.5 mL 0.5 mL Intramuscular During Hospitalization Kris Boston DO insulin glargine (LANTUS, SEMGLEE) injection 56 Units 56 Units Subcutaneous Nightly Amanda Bermudez MD 56 Units at 07/01/25 214 ipratropium-albuterol (DUO-NEB) nebulizer solution 3 mL 3 mL Nebulization Q6H PRN Amanda Bermudez MD lamoTRIgine (LaMICtal) tablet 100 mg 100 mg Oral Daily Amanda Bermudez MD 100 mg at 07/01/25 0830 lamoTRIgine (LaMICtal) tablet 250 mg 250 mg Oral Nightly Amanda Bermudez MD 250 mg at 07/01/25 2144 Magnesium Cardiology Dose Replacement - Follow Nurse / BPA Driven Protocol Not Applicable PRN Amanda Bermudez MD meropenem (MERREM) 500 mg in sodium chloride 0.9 % 100 mL MBP 500 mg Intravenous Q6H Duglas Andres MD 500 mg at 07/02/25 0359 methenamine (HIPREX) tablet 1 g 1 g Oral BID With Meals Amanda Bermudez MD 1 g at 07/01/25 1713 multivitamin with minerals 1 tablet 1 tablet Oral Daily Amanda Bermudez MD 1 tablet at 07/01/25 0830 naloxone (NARCAN) injection 0.4 mg 0.4 mg Intravenous Q5 Min PRN Amanda Bermudez MD nitroglycerin (NITROSTAT) SL tablet 0.4 mg 0.4 mg Sublingual Q5 Min PRN Amanda Bermudez MD ondansetron (ZOFRAN) injection 4 mg 4 mg Intravenous Q6H PRN Amanda Bermudez MD 4 mg at 06/29/25 1646 oxyCODONE-acetaminophen (PERCOCET) 10-325 MG per tablet 1 tablet 1 tablet Oral Q6H PRN Kris Boston DO 1 tablet at 07/02/25 0125 Pharmacy to dose vancomycin Not Applicable Continuous PRN Duglas Andres MD Phosphorus Replacement - Follow Nurse / BPA Driven Protocol Not Applicable PRN Amanda Bermudez MD Potassium Replacement - Follow Nurse / BPA Driven Protocol Not Applicable PRN Amanda Bermudez MD sacubitril-valsartan (ENTRESTO) 24-26 MG tablet 1 tablet 1 tablet Oral BID Amanda Bermudez MD 1 tablet at 07/01/25 2144 sodium chloride 0.9 % flush 10 mL 10 mL Intravenous PRN Ally Jeffers V, DIABETES NURSE sodium chloride 0.9 % flush 10 mL 10 mL Intravenous Q12H Amanda Bermudez MD 10 mL at 07/01/25 0832 sodium chloride 0.9 % flush 10 mL 10 mL Intravenous PRN Amanda Bermudez MD sodium chloride 0.9 % flush 10 mL 10 mL Intravenous Q12H Duglas Andres MD 10 mL at 07/01/25 2145 sodium chloride 0.9 % flush 10 mL 10 mL Intravenous PRN Duglas Andres MD sodium chloride 0.9 % flush 20 mL 20 mL Intravenous PRN Duglas Andres MD sodium chloride 0.9 % infusion 40 mL 40 mL Intravenous PRN Duglas Andres MD vancomycin (VANCOCIN) 1,000 mg in sodium chloride 0.9 % 250 mL IVPB-VTB 1,000 mg Intravenous Q12H Osmany Mccann, [facility] 250 mL/hr at 07/01/252142 1,000 mg at 07/01/25 214 vancomycin (VANCOCIN) capsule 125 mg 125 mg Oral 4x Daily Duglas Andres MD 125 mg at Followed by [START ON 07/10/2025] vancomycin (VANCOCIN) capsule 125 mg 125 mg Oral TID Duglas Andres MD Followed by [START ON 07/17/2025] vancomycin (VANCOCIN) capsule 125 mg 125 mg Oral BID Duglas Andres MD Followed by [START ON 07/25/2025] vancomycin (VANCOCIN) capsule 125 mg 125 mg Oral Daily Duglas Andres MD Followed by [START ON 08/01/2025] vancomycin (VANCOCIN) capsule 125 mg 125 mg Oral Weekly Duglas Andres MD * Margaret Massey, DIABETES NURSE - 07/15/2025 8:30 AM EST Images from the original note were not included. [facility] Medicine Services PROGRESS NOTE Patient Name: Trung Pool : 1955 Date of Admission: 06/25/2025 Primary Care Physician: Gustavo Mehta MD Subjective Subjective CC: LLE wound HPI: Patient is resting in bed in NAD. He is alert and orientated x 3 today. He states he does not remember last night but has not been sleeping well. Very pleasant. He is still agreeable to rehab but still declines further amputation, talked with nurse about getting speciality bed Objective Objective Vital Signs: Temp: [98 ??F (36.7 ??C)-98.8 ??F (37.1 ??C)] 98 ??F (36.7 ??C) Heart Rate: [67-103] 67 Resp: [16-18] 16 BP: (125-167)/(57-81) 154/78 Physical Exam: Constitutional: No acute distress, awake, alert HENT: NCAT, mucous membranes moist Respiratory: Clear to auscultation bilaterally, respiratory effort normal room air 96% Cardiovascular: RRR, no murmurs, rubs, or gallops Gastrointestinal: Positive bowel sounds, soft, nontender, nondistended Musculoskeletal: right BKA, left foot wound vac Psychiatric: Appropriate affect, cooperative Neurologic: Oriented x 3, strength symmetric in all extremities, speech clear Skin: No rashes, pale de [place] santos to BSD Results Reviewed: LAB RESULTS: Lab 07/15/2543107/14/25 0426 07/14/25 0425 07/13/25 0808 07/12/25 0454 07/11/25 042 WBC 8.08 -- 8.27 6.58 8.43 8.79 HEMOGLOBIN 8.9* -- 9.2* 9.4* 10.1* 9.5* HEMATOCRIT 30.1* -- 30.9* 30.1* 33.1* 31.1* PLATELETS 210 -- 251 256 282 255 MCV 80.9 -- 78.8* 77.2* 79.8 78.5* LACTATE -- 1.0 -- -- -- -- Lab 07/15/2543107/14/2542407/13/25 1848 07/13/25 0808 07/12/25 2333 07/12/25 1535 07/12/25 0454 07/11/25 1110 07/11/25422 SODIUM 139 141 -- -- 136 138 136 -- 135* POTASSIUM 4.8 4.9 5.1 -- 5.2 5.6* 6.1* < > 6.2* CHLORIDE 111* 111* -- -- 104 103 105 -- 104 CO2 18.8* 19.8* -- -- 21.9* 19.6* 19.7* -- 22.0 ANION GAP 9.2 10.2 -- -- 10.1 15.4* 11.3 -- 9.0 BUN 25.4* 37.3* -- -- 36.8* 34.2* 32.6* -- 26.6* CREATININE 0.74* 1.17 -- -- 1.19 1.13 1.09 -- 1.09 EGFR 96.9 66.6 -- -- 65.3 69.5 72.6 -- 72.6 GLUCOSE 98 67 -- -- 126* 137* 107* -- 133* CALCIUM 8.6 8.6 -- -- 8.6 8.9 8.9 -- 8.7 MAGNESIUM 2.1 2.3 -- 2.2 -- -- 2.1 -- 2.1 < > = values in this interval not displayed. Lab 07/14/25 1517 07/14/25 0601 FIO2 21 21 CARBOXYHEMOGLOBIN (VENOUS) 1.3 1.1 Brief Urine Lab Results (Last result in the past 365 days) Color Clarity Blood Leuk Est Nitrite Protein CREAT Urine HCG 07/14/25 0053 Yellow Clear Trace Moderate (2+) Negative 30 mg/dL (1+) Microbiology Results Abnormal Procedure Component Value - Date/Time Urine Culture - Urine, Indwelling Urethral Catheter [[id number]] (Abnormal) (Susceptibility) Collected: 06/25/252000 Lab Status: Final result Specimen: Urine from Indwelling Urethral Catheter Updated: 06/30/25 1001 Urine Culture >100,000 CFU/mL Proteus mirabilis Narrative: Colonization of the urinary tract without infection is common. Treatment is discouraged unless the patient is symptomatic, , or undergoing an invasive urologic procedure. Susceptibility Proteus mirabilis MURRAY Amoxicillin + Clavulanate Susceptible Ampicillin Resistant Ampicillin + Sulbactam Intermediate Cefazolin (Urine) Resistant Cefepime Resistant Ceftazidime Susceptible Ceftriaxone Resistant Cefuroxime axetil Resistant Ciprofloxacin Resistant Gentamicin Susceptible Levofloxacin Resistant Nitrofurantoin Resistant Piperacillin + Tazobactam Susceptible Trimethoprim + Sulfamethoxazole Resistant Blood Culture - Blood, Hand, Right [[id number]] (Abnormal) (Susceptibility) Collected: 06/25/252029 Lab Status: Edited Result - FINAL Specimen: Blood from Hand, Right Updated: 06/29/25 07 Blood Culture Enterococcus faecium Comment: Infectious disease consultation is highly recommended. Isolated from Anaerobic Bottle Gram Stain Anaerobic Bottle Gram positive cocci in chains Narrative: Less than seven (7) mL's of blood was collected. Insufficient quantity may yield false negative results. requested linezolid & daptomycin 06/28/25 Susceptibility Enterococcus faecium MURRAY Method Not Specified Ampicillin Susceptible Daptomycin Susceptible dose dependent Gentamicin High Level Synergy Susceptible Linezolid Susceptible (C) [1] Vancomycin Susceptible [1] Appended report. These results have been appended to a previously final verified report. Wound Culture - Swab, Foot, Left [[id number]] (Abnormal) (Susceptibility) Collected: 06/25/25 181 Lab Status: Final result Specimen: Swab from Foot, Left Updated: 06/29/25 0645 Wound Culture Heavy growth (4+) Staphylococcus aureus, MRSA Comment: Methicillin resistant Staphylococcus aureus, Patient may be an isolation risk. Moderate growth (3+) Morganella morganii ssp morganii Moderate growth (3+) Proteus mirabilis ESBL Comment: Consider infectious disease consult. Susceptibility results may not correlate to clinical outcomes. Gram Stain Few (2+) WBCs seen Few (2+) Gram positive cocci in pairs, chains and clusters Few (2+) Gram negative bacilli Susceptibility Staphylococcus aureus, MRSA MURRAY Clindamycin Susceptible Erythromycin Resistant Oxacillin Resistant Rifampin Susceptible Tetracycline Susceptible Trimethoprim + Sulfamethoxazole Resistant Vancomycin Susceptible Susceptibility Morganella morganii ssp morganii MURRAY Method Not Specified Amoxicillin + Clavulanate Resistant Ampicillin Resistant Ampicillin + Sulbactam Resistant Cefazolin (Non Urine) Resistant Cefepime Susceptible Cefotaxime Susceptible Ceftazidime Susceptible Cefuroxime axetil Resistant Ciprofloxacin Resistant Gentamicin Susceptible Levofloxacin Resistant Piperacillin + Tazobactam Susceptible Tetracycline Susceptible Trimethoprim + Sulfamethoxazole Resistant Susceptibility Proteus mirabilis ESBL MURRAY Ciprofloxacin Resistant Ertapenem Susceptible Levofloxacin Resistant Meropenem Susceptible Tetracycline Resistant Trimethoprim + Sulfamethoxazole Resistant Susceptibility Comments Morganella morganii ssp morganii Cefotaxime susceptibility can be used as a surrogate for ceftriaxone susceptibility Proteus mirabilis ESBL With the exception of urinary-sourced infections, aminoglycosides should not be used as monotherapy. Blood Culture ID, PCR - Blood, Hand, Right [[id number]] (Abnormal) Collected: 06/25/252029 Lab Status: Final result Specimen: Blood from Hand, Right Updated: 06/26/252101 BCID, PCR Enterococcus faecium. Zee/B (vancomycin resistance gene) not detected. Identification byBCID2 PCR. BOTTLE TYPE Anaerobic Bottle Narrative: Infectious disease consultation is highly recommended to rule out distant foci of infection. MRSA Screen, PCR (Inpatient) - Swab, Nares [[id number]] (Abnormal) Collected: 06/26/2545 Lab Status: Final result Specimen: Swab from Nares Updated: 06/26/25 0850 MRSA PCR Positive Narrative: The negative predictive value of this diagnostic test is high and should only be used to consider de-escalating anti-MRSA therapy. A positive result may indicate colonization with MRSA and must be correlated clinically. Gastrointestinal Panel, PCR - Stool, Per Rectum [[id number]] (Abnormal) Collected: 06/26/2545 Lab Status: Final result Specimen: Stool from Per Rectum Updated: 06/26/25 0850 Campylobacter Not Detected Plesiomonas shigelloides Not Detected Salmonella Not Detected Vibrio Not Detected Vibrio cholerae Not Detected Yersinia enterocolitica Not Detected Enteroaggregative E. coli (EAEC) Not Detected Enteropathogenic E. coli (EPEC) Not Detected Enterotoxigenic E. coli (ETEC) lt/st Not Detected Shiga-like toxin-producing E. coli (STEC) stx1/stx2 Not Detected Shigella/Enteroinvasive E. coli (EIEC) Not Detected Cryptosporidium Not Detected Cyclospora cayetanensis Not Detected Entamoeba histolytica Not Detected Giardia lamblia Not Detected Adenovirus F40/41 Not Detected Astrovirus Not Detected Norovirus GI/GII Detected Comment: If a positive Norovirus result is inconsistent with clinical presentation, the positive Norovirus result should be confirmed using another method. Rotavirus A Not Detected Sapovirus (I, II, IV or V) Not Detected Clostridioides difficile Toxin - Stool, Per Rectum [[id number]] (Abnormal) Collected: 06/26/2545 Lab Status: Final result Specimen: Stool from Per Rectum Updated: 06/26/25754 Narrative: The following orders were created for panel order Clostridioides difficile Toxin - Stool, Per Rectum. Procedure Abnormality Status --------- ------ Clostridioides difficile...[[id number]] Abnormal Final result Please view results for these tests on the individual orders. Clostridioides difficile Toxin, PCR - Stool, Per Rectum [[id number]] (Abnormal) Collected: 06/26/2545 Lab Status: Final result Specimen: Stool from Per Rectum Updated: 06/26/25754 Toxigenic C. difficile by PCR Detected Narrative: DNA from a toxigenic strain of C.difficile has been detected. No radiology results from the last 24 hrs Results for orders placed during the hospital encounter of 08/31/24 Adult Transthoracic Echo Complete W/ Cont if Necessary Per Protocol 09/12/2024 4:10 PM Interpretation Summary ??? Left ventricular systolic function is normal. Calculated left ventricular EF = 52.5% ??? There is a trivial pericardial effusion. ??? The aortic valve exhibits sclerosis. ??? Mitral annular calcification is present. I have personally reviewed the therapy plans: [] PT/OT/ ST Therapy Plans Current medications: Scheduled Meds:acetaminophen, 1,000 mg, Oral, Q8H apixaban, 5 mg, Oral, BID vitamin C, 500 mg, Oral, Daily baclofen, 10 mg, Oral, Q12H carvedilol, 3.125 mg, Oral, BID With Meals clopidogrel, 75 mg, Oral, Daily famotidine, 20 mg, Oral, BID AC finasteride, 5 mg, Oral, Daily folic acid, 1 mg, Oral, Daily gabapentin, 600 mg, Oral, Q8H insulin glargine, 30 Units, Subcutaneous, Nightly lamoTRIgine, 100 mg, Oral, Daily lamoTRIgine, 250 mg, Oral, Nightly meropenem, 500 mg, Intravenous, Q6H methenamine, 1 g, Oral, BID With Meals mirtazapine, 15 mg, Oral, Nightly multivitamin with minerals, 1 tablet, Oral, Daily OLANZapine zydis, 7.5 mg, Oral, Nightly oxyCODONE, 15 mg, Oral, Q6H [Held by provider] sacubitril-valsartan, 1 tablet, Oral, BID sodium chloride, 10 mL, Intravenous, Q12H sodium chloride, 10 mL, Intravenous, Q12H vancomycin, 125 mg, Oral, TID Followed by [START ON 07/17/2025] vancomycin, 125 mg, Oral, BID Followed by [START ON 07/25/2025] vancomycin, 125 mg, Oral, Daily Followed by [START ON 08/01/2025] vancomycin, 125 mg, Oral, Weekly vancomycin, 1,250 mg, Intravenous, Q24H Continuous Infusions: PRN Meds:.??? aluminum-magnesium hydroxide-simethicone ??? senna-docusate sodium AND polyethylene glycol AND bisacodyl AND bisacodyl ??? Calcium Replacement - Follow Nurse / BPA Driven Protocol ??? dextrose ??? dextrose ??? diphenhydrAMINE-zinc acetate ??? glucagon (human recombinant) ??? influenza vaccine ??? ipratropium-albuterol ??? Magnesium Cardiology Dose Replacement - Follow Nurse / BPA Driven Protocol ??? [DISCONTINUED] Morphine AND naloxone ??? nitroglycerin ??? ondansetron ??? oxyCODONE ??? Phosphorus Replacement - Follow Nurse / BPA Driven Protocol ??? Potassium Replacement - Follow Nurse / BPA Driven Protocol ??? Insert Peripheral IV AND sodium chloride ??? sodium chloride ??? sodium chloride ??? sodium chloride ??? sodium chloride ??? ziprasidone Assessment & Plan Assessment & Plan Active Hospital Problems Diagnosis POA ??? Gastroenteritis due to norovirus [A08.11] Yes ??? Acute UTI (urinary tract infection) [N39.0] Yes ??? Diarrhea of presumed infectious origin [R19.7] Yes ??? Acute on chronic blood loss anemia [D62] Yes ??? BPH without obstruction/lower urinary tract symptoms [N40.0] Yes ??? GERD without esophagitis [K21.9] Yes ??? Bilateral inguinal hernia [K40.20] Yes ??? Cellulitis [L03.90] Yes ??? Type 2 diabetes mellitus, with long-term current use of insulin [E11.9, Z79.4] Not Applicable ??? Wound infection [T14.8XXA, L08.9] Unknown ??? PAD (peripheral artery disease) [I73.9] Yes ??? Coronary artery disease involving [place] coronary artery of [place] heart without angina pectoris [I25.10] Yes ??? Seizure disorder [G40.909] Yes ??? Primary hypertension [I10] Yes Resolved Hospital Problems No resolved problems to display. Brief Hospital Course to date: Trung Pool is a 70 y.o. male with a past medical history of coronary artery disease, peripheral artery disease, type 2 diabetes mellitus (on insulin), right above-knee amputation, and seizure disorder, who was admitted with hematuria, left foot stump drainage, fatigue, and diarrhea. Workup notable for norovirus and Enterococcus bacteremia. Urology, Infectious disease and vascular surgery consulted while inpatient. Planning for left lower extremity debridement and possible wound VAC placement with vascular surgery. This patient's problems and plans were partially entered by my partner and updated as appropriate by me 07/15/25. Hospital-acquired delirium Patient becoming increasingly confused 07/13-07/14, unclear if confusion is related to his foot wound becoming increasingly worse with occult septicemia He is not sleeping very well at nighttime, his sleep-wake cycles have been disturbed contributing to his states of confusion Will give IV fluids, holding blood pressure medications at this time Remains on antibiotics per ID Geodon as needed Remains on Remeron and Zyprexa 7.5 mg at nighttime Consultation to neurology to assist with delirium management particularly as they were previously on the case for pseudoseizure episode after surgery s/p Haldol x 1, restraints dc'd. 07/15 alert and orientated x 3 Severe PAD History of right BKA, LLE revascularization and toe amputation Cellulitis and Left Lower Extremity Wound MRSA + Enterococcus bacteremia MRI L foot showing edema in the distal first and second metatarsal diaphyses at the resection margins, osteomyelitis is not excluded, diffuse soft tissue edema and skin thickening about the remainingfoot. No definite abscess noted. Nondisplaced intra-articular fracture of the distal tibia with associated marrow edema. Follow-up CT angio left lower extremity revealing with moderate focal narrowing at the junction of the SFA and the popliteal artery. 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 Patency of the anterior and posterior tibial arteries difficult to assess due to significant venous contamination and heavy calcification. Left lower extremity arterial dopplers abnormal waveforms suggest inflow disease. Moderate 60% stenosis in the left SFA, the left CHIP appears to be occluded filling vis collaterals retrograde Blood cultures positive for Enterococcus faecium Infectious disease consulted, continue IV merrem, IV/PO vancomycin Vascular surgery consulted in the evaluation follows with Dr. Marcano; recommending more debridement of LLE with wound vac placement; on 07/03/2025 Resume Plavix and DVT ppx, Eliquis Patient has been adamant about not having any more amputation Palliative care on board to assist with pain management Patient is fearful regarding amputation, does not want to go to a usp, states that if we can avoid sending him to usp he may be agreeable to amputation. he states he does not want to but if ultimately he will end up in usp then he just wants to go home with hospice. Encouraged to continue all treatment at this time . Hospice has signed off at this time, patient has refused medications and labs at times Hyperkalemia - resolved potassium of 6.2 07/11, given Lokelma and IV Dextrose/ Insulin repeat labs improved to 5.8 and given one more does of Lokelma modified diet to low potassium diet potassium of 6.1 on 07/12; given more IV Dex/Insulin; will now hold Entresto, s/p Lokelma TID and one time dose IV lasix to treat hyperkalemia. Repeat BMP q 8 hrs x 2 occur and monitor closely. Additionally given IV mag and calcium gluconate DC Lokelma for now Acute UTI and hematuria History of BPH CT imaging revealed moderate bladder distention, small amount of gas in the bladder, and mildly decreased bladder wall thickening compared to prior exam. H&H stable, resumed eliquis 07/07 Urology consultation, continue de los santos and finasteride. Plan to follow up outpatient for senior living bladder management Norovirus GI PCR panel with norovirus, C. difficile toxin is positive but antigen negative suggest colonization CT imaging suggestive of proctitis Continue antibiotics as above, ID consulted and are following Acute on Chronic anemia, possible blood loss Continue to monitor H&H, stable, resumed eliqius Transfuse PRBC if hemoglobin <7 Type 2 diabetes Transient hypoglycemia Previously well-controlled with A1c 7.6 (08/2024), A1c 7.82 Adjusting insulin regimen Seizure disorder History of pseudoseizures Continue lamotrigine Addendum: Seizure like activity noted upon awaking from procedure. Aborted with propofol and versed. My partner Discussed with general neurology over the phone. Recommended PRN ativan for now and outpatient follow up with Dr. Anand as seizures are likely 2/2 anesthesia/procedure. S/p EEG. If seizurelike activity recurs while inpatient, recommended loading with 1g of Keppra and placing general neurology consult. No recurrence of pseudoseizure GERD without Esophagitis PPI Bilateral Inguinal Hernia, incidental finding on CT CT imaging revealed bilateral inguinal hernias, larger on the left containing a partial loop of sigmoid colon, without proximal dilatation. General surgery consult; recommend watchful waiting, poor operative candidate for an elective procedure while asymptomatic, and has signed off Expected Discharge Location and Transportation: rehab Expected Discharge Expected Discharge Date: 07/13/2025; Expected Discharge Time: VTE Prophylaxis: Pharmacologic VTE prophylaxis orders are present. AM-PAC 6 Clicks Score (PT): 9 (07/14/25 2221) CODE STATUS: Code Status and Medical Interventions: CPR (Attempt to Resuscitate); Full Support Ordered at: 06/25/25 2310 Code Status (Patient has no pulse and is not breathing): CPR (Attempt to Resuscitate) Medical Interventions (Patient has pulse or is breathing): Full Support Level Of Support Discussed With: Patient Margaret Massey APRN 07/15/25 * Gigi Alcantara MD - 07/14/2025 10:47 AM EDT Images from the original note were not included. [facility] Medicine Services PROGRESS NOTE Patient Name: Trung Pool : 1955 Date of Admission: 06/25/2025 Primary Care Physician: Gustavo Mehta MD Subjective Subjective CC: LLE wound HPI: Overnight patient became extremely confused, UA was ordered, patient in restraints, lactic acid ABGand blood sugars were checked, patient was found to have blood sugar of 75, concern for hospital-acquired delirium, received Haldol x 1 Objective Objective Vital Signs: Temp: [97.8 ??F (36.6 ??C)-99.6 ??F (37.6 ??C)] 99.6 ??F (37.6 ??C) Heart Rate: [73-107] 97 Resp: [17-18] 17 BP: (112-148)/(52-76) 112/62 Physical Exam: Constitutional: No acute distress in restraints HENT: NCAT, mucous membranes moist Respiratory: Clear to auscultation bilaterally, respiratory effort normal Cardiovascular: RRR, no murmurs, rubs, or gallops Gastrointestinal: Positive bowel sounds, soft, nontender, nondistended Musculoskeletal: No bilateral ankle edema Psychiatric: Appropriate affect, cooperative Neurologic: Somnolent, strength symmetric in all extremities, Cranial Nerves grossly intact to confrontation, speech clear Skin: No rashes Results Reviewed: LAB RESULTS: Lab 07/14/25 0426 07/14/25 0425 07/13/25 0808 07/12/25 0454 07/11/25 0423 07/09/25 0712 WBC -- 8.27 6.58 8.43 8.79 9.80 HEMOGLOBIN -- 9.2* 9.4* 10.1* 9.5* 9.5* HEMATOCRIT -- 30.9* 30.1* 33.1* 31.1* 30.7* PLATELETS -- 251 256 282 255 278 MCV -- 78.8* 77.2* 79.8 78.5* 77.9* LACTATE 1.0 -- -- -- -- -- Lab 07/14/25 0425 07/13/25 1848 07/13/25 0808 07/12/25 2333 07/12/25 1535 07/12/25 0454 07/11/25 1110 07/11/25 0423 07/09/25 0712 SODIUM 141 -- -- 136 138 136 -- 135* 136 POTASSIUM 4.9 5.1 -- 5.2 5.6* 6.1* < > 6.2* 5.8* CHLORIDE 111* -- -- 104 103 105 -- 104 106 CO2 19.8* -- -- 21.9* 19.6* 19.7* -- 22.0 21.8* ANION GAP 10.2 -- -- 10.1 15.4* 11.3 -- 9.0 8.2 BUN 37.3* -- -- 36.8* 34.2* 32.6* -- 26.6* 21.6 CREATININE 1.17 -- -- 1.19 1.13 1.09 -- 1.09 1.05 EGFR 66.6 -- -- 65.3 69.5 72.6 -- 72.6 75.9 GLUCOSE 67 -- -- 126* 137* 107* -- 133* 53* CALCIUM 8.6 -- -- 8.6 8.9 8.9 -- 8.7 8.7 MAGNESIUM 2.3 -- 2.2 -- -- 2.1 -- 2.1 2.1 < > = values in this interval not displayed. Lab 07/14/25 0601 FIO2 21 CARBOXYHEMOGLOBIN (VENOUS) 1.1 Brief Urine Lab Results (Last result in the past 365 days) Color Clarity Blood Leuk Est Nitrite Protein CREAT Urine HCG 07/14/25 0053 Yellow Clear Trace Moderate (2+) Negative 30 mg/dL (1+) Microbiology Results Abnormal Procedure Component Value - Date/Time Urine Culture - Urine, Indwelling Urethral Catheter [[id number]] (Abnormal) (Susceptibility) Collected: 06/25/252000 Lab Status: Final result Specimen: Urine from Indwelling Urethral Catheter Updated: 06/30/25 1001 Urine Culture >100,000 CFU/mL Proteus mirabilis Narrative: Colonization of the urinary tract without infection is common. Treatment is discouraged unless the patient is symptomatic, , or undergoing an invasive urologic procedure. Susceptibility Proteus mirabilis MURRAY Amoxicillin + Clavulanate Susceptible Ampicillin Resistant Ampicillin + Sulbactam Intermediate Cefazolin (Urine) Resistant Cefepime Resistant Ceftazidime Susceptible Ceftriaxone Resistant Cefuroxime axetil Resistant Ciprofloxacin Resistant Gentamicin Susceptible Levofloxacin Resistant Nitrofurantoin Resistant Piperacillin + Tazobactam Susceptible Trimethoprim + Sulfamethoxazole Resistant Blood Culture - Blood, Hand, Right [[id number]] (Abnormal) (Susceptibility) Collected: 06/25/25 2030 Lab Status: Edited Result - FINAL Specimen: Blood from Hand, Right Updated: 06/29/25 0713 Blood Culture Enterococcus faecium Comment: Infectious disease consultation is highly recommended. Isolated from Anaerobic Bottle Gram Stain Anaerobic Bottle Gram positive cocci in chains Narrative: Less than seven (7) mL's of blood was collected. Insufficient quantity may yield false negative results. requested linezolid & daptomycin 06/28/25 Susceptibility Enterococcus faecium MURRAY Method Not Specified Ampicillin Susceptible Daptomycin Susceptible dose dependent Gentamicin High Level Synergy Susceptible Linezolid Susceptible (C) [1] Vancomycin Susceptible [1] Appended report. These results have been appended to a previously final verified report. Wound Culture - Swab, Foot, Left [[id number]] (Abnormal) (Susceptibility) Collected: 06/25/25 1818 Lab Status: Final result Specimen: Swab from Foot, Left Updated: 06/29/25 0645 Wound Culture Heavy growth (4+) Staphylococcus aureus, MRSA Comment: Methicillin resistant Staphylococcus aureus, Patient may be an isolation risk. Moderate growth (3+) Morganella morganii ssp morganii Moderate growth (3+) Proteus mirabilis ESBL Comment: Consider infectious disease consult. Susceptibility results may not correlate to clinical outcomes. Gram Stain Few (2+) WBCs seen Few (2+) Gram positive cocci in pairs, chains and clusters Few (2+) Gram negative bacilli Susceptibility Staphylococcus aureus, MRSA MURRAY Clindamycin Susceptible Erythromycin Resistant Oxacillin Resistant Rifampin Susceptible Tetracycline Susceptible Trimethoprim + Sulfamethoxazole Resistant Vancomycin Susceptible Susceptibility Morganella morganii ssp morganii MURRAY Method Not Specified Amoxicillin + Clavulanate Resistant Ampicillin Resistant Ampicillin + Sulbactam Resistant Cefazolin (Non Urine) Resistant Cefepime Susceptible Cefotaxime Susceptible Ceftazidime Susceptible Cefuroxime axetil Resistant Ciprofloxacin Resistant Gentamicin Susceptible Levofloxacin Resistant Piperacillin + Tazobactam Susceptible Tetracycline Susceptible Trimethoprim + Sulfamethoxazole Resistant Susceptibility Proteus mirabilis ESBL MURRAY Ciprofloxacin Resistant Ertapenem Susceptible Levofloxacin Resistant Meropenem Susceptible Tetracycline Resistant Trimethoprim + Sulfamethoxazole Resistant Susceptibility Comments Morganella morganii ssp morganii Cefotaxime susceptibility can be used as a surrogate for ceftriaxone susceptibility Proteus mirabilis ESBL With the exception of urinary-sourced infections, aminoglycosides should not be used as monotherapy. Blood Culture ID, PCR - Blood, Hand, Right [[id number]] (Abnormal) Collected: 06/25/252029 Lab Status: Final result Specimen: Blood from Hand, Right Updated: 06/26/252101 BCID, PCR Enterococcus faecium. Zee/B (vancomycin resistance gene) not detected. Identification byBCID2 PCR. BOTTLE TYPE Anaerobic Bottle Narrative: Infectious disease consultation is highly recommended to rule out distant foci of infection. MRSA Screen, PCR (Inpatient) - Swab, Nares [[id number]] (Abnormal) Collected: 06/26/2545 Lab Status: Final result Specimen: Swab from Nares Updated: 06/26/2550 MRSA PCR Positive Narrative: The negative predictive value of this diagnostic test is high and should only be used to consider de-escalating anti-MRSA therapy. A positive result may indicate colonization with MRSA and must be correlated clinically. Gastrointestinal Panel, PCR - Stool, Per Rectum [[id number]] (Abnormal) Collected: 06/26/2545 Lab Status: Final result Specimen: Stool from Per Rectum Updated: 06/26/25 0850 Campylobacter Not Detected Plesiomonas shigelloides Not Detected Salmonella Not Detected Vibrio Not Detected Vibrio cholerae Not Detected Yersinia enterocolitica Not Detected Enteroaggregative E. coli (EAEC) Not Detected Enteropathogenic E. coli (EPEC) Not Detected Enterotoxigenic E. coli (ETEC) lt/st Not Detected Shiga-like toxin-producing E. coli (STEC) stx1/stx2 Not Detected Shigella/Enteroinvasive E. coli (EIEC) Not Detected Cryptosporidium Not Detected Cyclospora cayetanensis Not Detected Entamoeba histolytica Not Detected Giardia lamblia Not Detected Adenovirus F40/41 Not Detected Astrovirus Not Detected Norovirus GI/GII Detected Comment: If a positive Norovirus result is inconsistent with clinical presentation, the positive Norovirus result should be confirmed using another method. Rotavirus A Not Detected Sapovirus (I, II, IV or V) Not Detected Clostridioides difficile Toxin - Stool, Per Rectum [[id number]] (Abnormal) Collected: 06/26/2545 Lab Status: Final result Specimen: Stool from Per Rectum Updated: 06/26/25754 Narrative: The following orders were created for panel order Clostridioides difficile Toxin - Stool, Per Rectum. Procedure Abnormality Status --------- ------ Clostridioides difficile...[[id number]] Abnormal Final result Please view results for these tests on the individual orders. Clostridioides difficile Toxin, PCR - Stool, Per Rectum [[id number]] (Abnormal) Collected: 06/26/2545 Lab Status: Final result Specimen: Stool from Per Rectum Updated: 06/26/25754 Toxigenic C. difficile by PCR Detected Narrative: DNA from a toxigenic strain of C.difficile has been detected. No radiology results from the last 24 hrs Results for orders placed during the hospital encounter of 08/31/24 Adult Transthoracic Echo Complete W/ Cont if Necessary Per Protocol 09/12/2024 4:10 PM Interpretation Summary ??? Left ventricular systolic function is normal. Calculated left ventricular EF = 52.5% ??? There is a trivial pericardial effusion. ??? The aortic valve exhibits sclerosis. ??? Mitral annular calcification is present. I have personally reviewed the therapy plans: [] PT/OT/ ST Therapy Plans Current medications: Scheduled Meds:acetaminophen, 1,000 mg, Oral, Q8H apixaban, 5 mg, Oral, BID vitamin C, 500 mg, Oral, Daily baclofen, 10 mg, Oral, Q12H carvedilol, 3.125 mg, Oral, BID With Meals clopidogrel, 75 mg, Oral, Daily famotidine, 20 mg,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 Units 07/14/25 0425 07/13/25 0808 07/12/25 0454 WBC 10*3/mm3 8.27 6.58 8.43 HEMOGLOBIN g/dL 9.2* 9.4* 10.1* HEMATOCRIT % 30.9* 30.1* 33.1* PLATELETS 10*3/mm3 251 256 282 Results from last 7 days Lab Units 07/14/255 SODIUM mmol/L 141 POTASSIUM mmol/L 4.9 CHLORIDE mmol/L 111* CO2 mmol/L 19.8* BUN mg/dL 37.3* CREATININE mg/dL 1.17 GLUCOSE mg/dL 67 CALCIUM mg/dL 8.6 Estimated Creatinine Clearance: 76.2 mL/min (by C-G formula based on SCr of 1.17 mg/dL). Microbiology: Radiology: Imaging Results (Last 72 Hours) No results found for the last 72 hours. Impression: --acute left lower leg/foot cellulitis and wound infection, prior culture July 2024 with ESBL Klebsiella pneumoniae and pseudomonas aeruginosa, pseudomonas was sensitive to Merrem per microbiology lab at [facility]. Cx at [facility] as below; He has had multiple surgeries and multiple p ractitioners recommend higher level amputation which he has refused. On prior admissions, he has refused outpatient IV antibiotics and he has refused placement for longer durations of IV antibiotics.This refusal of care has placed him at increased risk for poor outcome. Earlier in 2024 he was discharged to the care of Dr. Oneal, his outpatient ID doctor and Dr Faust his automobile travel club counselor for furthercare/workup ; readmission May 2025 and June 2025 with acute worsening in redness/drainage to left lower extremity. Surgery as above and ongoing IV abx, admission associated with bacteremia and mixed/MDR organisms; High risk for further serious morbidity and other serious sequela including p ersistent/recurrent or nonhealing wounds, persistent/progressive or recurrent infection and risk for further functional/limb loss, higher-level amputation and other dire consequences including sepsis/mortalityetc. he remains opposed to amputation; he voices understanding his poor prognosis overall including risks for dire consequences; past Cx with MRSA/PSA/ESBL at prior admissions; culture June 02, 2025 with Proteus/MRSA/PSA; Cx June 2025 below; further imaging no definitive osteomyelitis but also unable to exclude per radiology at distal first/second MT; surgery with I&D 07/03 but no further bone debridement/amputation --E Faecium bacteremia ; NOT vanco resistant; ?foot source -v- other --Acute hematuria/UTI with chronic indwelling De Los Santos catheter. Proteus in culture so far; nursing reports De Los Santos catheter has been changed since admission; urology evaluation for further consideration of cystoscopy versus SP catheter or other; urine microscopic with yeast and potential for yeast colon ization/contaminant --Acute diarrhea, Norovirus + and C. Difficile PCR +, although toxin antigen negative. He has risk for active disease and does have symptomatology and requires antibiotics for other processes, and therefore oral vancomycin added although unable to definitively confirm active disease with toxin antigen negative ( although risk for false negative); supportive care ongoing --MRSA surveillance + --Peripheral arterial disease by past evaluation of vascular team in addition to history DVT. 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; postop after 07/03 surgery with decreased LOC, seen bymedicine and adjustments per them in medications; further neuro workup per medicine / neuro team; awake/interactive as of my 07/05 visit --Hx QTc > 500 ms on prior EKG PLAN: --IV vancomycin/merrem, oral vancomycin; likely to need IV abx in light of bacteremia/abnormal MRI as previously noted; final duration could depend on his surgical decisions, if he has BKA/AKA then he may not need quite as long a duration of antibiotics in light of focus removal at that point; he would need to finish duration for bacteremia; again, final duration to depend on clinical course/surgical plans/patient goals of care etc. He does not have enough assistance at home to do IV abx at home per him; case management and palliative teams following --mycamine IV x 1 07/14 while culture data pending; IF fever or other clinical decline you could consider scans/blood cultures to r/o other occult focus, etc.. wound culture June 02, 2025 with Proteus /MRSA, PSA urine culture June 02, 2025 E Coli/ESBL Proteus urine culture 06/25 proteus blood culture 06/25 E Faecium vanco/amp sensitive; dapto sens but dose dependent wound culture 06/25 (surface) with MRSA and ESBL proteus and morganella --Check/review labs cultures and scans --Partial history [...] transitions of care for this complex patient. Duglas Andres MD 07/14/2025 [1] Allergies Allergen Reactions Keppra [Levetiracetam] Other (See Comments) Acute psychosis Bupropion Unknown (See Comments) Codeine Nausea Only Hydrocodone Unknown (See Comments) Ketorolac Tromethamine Unknown (See Comments) [2] Current Facility-Administered Medications Medication Dose Route Frequency Provider Last Rate Last Admin acetaminophen (TYLENOL) tablet 650 mg 650 mg Oral Q4H PRN Amanda Bermudez MD 650 mg at 06/29/25 0343 Or acetaminophen (TYLENOL) 160 MG/5ML oral solution 650 mg 650 mg Oral Q4H PRN Amanda Bermudez MD Or acetaminophen (TYLENOL) suppository 650 mg 650 mg Rectal Q4H PRN Amanda Bermudez MD aluminum-magnesium hydroxide-simethicone (MAALOX MAX) 400-400-40 MG/5ML suspension 15 mL 15 mL [id number] PRN Amanda Bermudez MD [Held by provider] apixaban (ELIQUIS) tablet 5 mg 5 mg Oral BID Amanda Bermudez MD ascorbic acid (VITAMIN C) tablet 500 mg 500 mg Oral Daily Amanda Bermudez MD 500 mg at 07/01/25 0830 baclofen (LIORESAL) tablet 10 mg 10 mg Oral Q12H Amanda Bermudez MD 10 mg at 07/01/25 2144 sennosides-docusate (PERICOLACE) 8.6-50 MG per tablet 2 tablet 2 tablet Oral BID PRN Amanda Bermudez MD And polyethylene glycol (MIRALAX) packet 17 g 17 g Oral Daily PRN Amanda Bermudez MD And bisacodyl (DULCOLAX) EC tablet 5 mg 5 mg Oral Daily PRN Amanda Bermudez MD And bisacodyl (DULCOLAX) suppository 10 mg 10 mg Rectal Daily PRN Amanda Bermudez MD Calcium Replacement - Follow Nurse / BPA Driven Protocol Not Applicable PRN Amanda Bermudez MD carvedilol (COREG) tablet 3.125 mg 3.125 mg Oral BID With Meals Amanda Bermudez MD 3.125 mg at 07/01/25 1712 clopidogrel (PLAVIX) tablet 75 mg 75 mg Oral Daily Amanda Bermudez MD 75 mg at 07/01/25 0830 famotidine (PEPCID) tablet 20 mg 20 mg Oral BID AC Arnoldo Crews PharmD 20 mg at 07/02/25 0649 finasteride (PROSCAR) tablet 5 mg 5 mg Oral Daily Amanda Bermudez MD 5 mg at 07/01/25 0830 folic acid (FOLVITE) tablet 1 mg 1 mg Oral Daily Amanda Bermudez MD 1 mg at 07/01/25 0830 gabapentin (NEURONTIN) capsule 300 mg 300 mg Oral Q8H Milena Jo APRN 300 mg at 07/02/25 0649 heparin (porcine) 5000 UNIT/ML injection 5,000 Units 5,000 Units Subcutaneous Q8H Lupe Albert APRN 5,000 Units at 07/02/25 0649 influenza vac split high-dose (FLUZONE HIGH DOSE) injection 0.5 mL 0.5 mL Intramuscular During Hospitalization Kris Boston DO insulin glargine (LANTUS, SEMGLEE) injection 56 Units 56 Units Subcutaneous Nightly Amanda Bermudez MD 56 Units at 07/01/25 2145 ipratropium-albuterol (DUO-NEB) nebulizer solution 3 mL 3 mL Nebulization Q6H PRN Amanda Bermudez MD lamoTRIgine (LaMICtal) tablet 100 mg 100 mg Oral Daily Amanda Bermudez MD 100 mg at 07/01/25 0830 lamoTRIgine (LaMICtal) tablet 250 mg 250 mg Oral Nightly Amanda Bermudez MD 250 mg at 07/01/25 2144 Magnesium Cardiology Dose Replacement - Follow Nurse / BPA Driven Protocol Not Applicable PRN Amanda Bermudez MD meropenem (MERREM) 500 mg in sodium chloride 0.9 % 100 mL MBP 500 mg Intravenous Q6H Duglas Andres MD 500 mg at 07/02/25 0359 methenamine (HIPREX) tablet 1 g 1 g Oral BID With Meals Amanda Bermudez MD 1 g at 07/01/25 1713 multivitamin with minerals 1 tablet 1 tablet Oral Daily Amanda Bermudez MD 1 tablet at 07/01/25 0830 naloxone (NARCAN) injection 0.4 mg 0.4 mg Intravenous Q5 Min PRN Amanda Bermudez MD nitroglycerin (NITROSTAT) SL tablet 0.4 mg 0.4 mg Sublingual Q5 Min PRN Amanda Bermudez MD ondansetron (ZOFRAN) injection 4 mg 4 mg Intravenous Q6H PRN Amanda Bermudez MD 4 mg at 06/29/25 1646 oxyCODONE-acetaminophen (PERCOCET) 10-325 MG per tablet 1 tablet 1 tablet Oral Q6H PRN Kris Boston DO 1 tablet at 07/02/25 0125 Pharmacy to dose vancomycin Not Applicable Continuous PRN Duglas Andres MD Phosphorus Replacement - Follow Nurse / BPA Driven Protocol Not Applicable PRN Amanda Bermudez MD Potassium Replacement - Follow Nurse / BPA Driven Protocol Not Applicable PRN Amanda Bermudez MD sacubitril-valsartan (ENTRESTO) 24-26 MG tablet 1 tablet 1 tablet Oral BID Amanda Bermudez MD 1 tablet at 07/01/25 2144 sodium chloride 0.9 % flush 10 mL 10 mL Intravenous PRN Ally Jeffers V, DIABETES NURSE sodium chloride 0.9 % flush 10 mL 10 mL Intravenous Q12H Amanda Bermudez MD 10 mL at 07/01/25 0832 sodium chloride 0.9 % flush 10 mL 10 mL Intravenous PRN Amanda Bermudez MD sodium chloride 0.9 % flush 10 mL 10 mL Intravenous Q12H Duglas Andres MD 10 mL at 07/01/252144 sodium chloride 0.9 % flush 10 mL 10 mL Intravenous PRN Duglas Andres MD sodium chloride 0.9 % flush 20 mL 20 mL Intravenous PRN Duglas Andres MD sodium chloride 0.9 % infusion 40 mL 40 mL Intravenous PRN Duglas Andres MD vancomycin (VANCOCIN) 1,000 mg in sodium chloride 0.9 % 250 mL IVPB-VTB 1,000 mg Intravenous Q12H Osmany Mccann [facility] 250 mL/hr at 07/01/252142 1,000 mg at 07/01/252142 vancomycin (VANCOCIN) capsule 125 mg 125 mg Oral 4x Daily Duglas Andres MD 125 mg at Followed by [START ON 07/10/2025] vancomycin (VANCOCIN) capsule 125 mg 125 mg Oral TID Duglas Andres MD Followed by [START ON 07/17/2025] vancomycin (VANCOCIN) capsule 125 mg 125 mg Oral BID Duglas Andres MD Followed by [START ON 07/25/2025] vancomycin (VANCOCIN) capsule 125 mg 125 mg Oral Daily Duglas Andres MD Followed by [START ON 08/01/2025] vancomycin (VANCOCIN) capsule 125 mg 125 mg Oral Weekly Duglas Andres MD * Osmany Mccann [facility] - 07/14/2025 7:04 AM EDT Pharmacy Consult - Vancomycin Dosing and Monitoring Trung Pool is a 70 y.o. male receiving vancomycin therapy. Indication: Bacteremia Consulting Provider: Duglas Andres MD ID Consult: yes Goal AUC: 400-600 mg/L*hr Current Antimicrobial Therapy Vancomycin 1250mg q24h Meropenem 500mg q6h Allergies Allergies as of 06/25/2025 - Reviewed 06/25/2025 Allergen Reaction Noted Keppra [levetiracetam] Other (See Comments) 08/01/2023 Bupropion Unknown (See Comments) 03/06/2022 Codeine Nausea Only 04/28/2019 Hydrocodone Unknown (See Comments) 03/06/2022 Ketorolac tromethamine Unknown (See Comments) 03/06/2022 Labs Results from last 7 days Lab Units 07/14/25 0425 07/12/25 2333 07/12/25 1535 BUN mg/dL 37.3* 36.8* 34.2* CREATININE mg/dL 1.17 1.19 1.13 Results from last 7 days Lab Units 07/14/25 0425 07/13/25 0808 07/12/25 0454 WBC 10*3/mm3 8.27 6.58 8.43 Evaluation of Dosing Last Dose Received in the ED/Outside Facility: no Is Patient on Dialysis or Renal Replacement: no Height - 182.9 cm (72 ) Weight - 116 kg (254 lb 13.6 oz) Estimated Creatinine Clearance: 76.2 mL/min (by C-G formula based on SCr of 1.17 mg/dL). I/O last 3 completed shifts: In: 525 [P.O.:525] Out: 2475 [Urine:2475] Microbiology and Radiology Microbiology Results (last 10 days) No results found for the last 240 hours. Reported Vancomycin Levels Results from last 7 days Lab Units 07/14/2542407/11/25 0423 VANCOMYCIN RM mcg/mL 22.70 16.40 Results from last 7 days Lab Units 07/09/25 0712 VANCOMYCIN TR mcg/mL 31.40* [employer] AUC Calculation: Current AUC:441 mg/L*hr Predicted Steady State AUC on Current Dose: 571 mg/L*hr Predicted Steady State AUC on New Dose: n/a mg/L*hr Assessment/Plan: Vancomycin dosing for bacteremia Goal AUC: 400-600 mg/L*hr 07/14 SCr - 1.17 07/14 WBC - 8.27 24hr tmax - 98.6 07/14 vancomycin level - 22.7 mcg/ml @0425 Vancomycin level drawn 16 hours following dose (steady state concentration) Continue vancomycin 1250mg q24h Obtain vancomycin level 07/18 with am labs Monitor renal function, clinical status and infusion related reactions Follow vancomycin levels and adjust dose accordingly Thanks Osmany Mccann RPH 07/14/2025 06:57 EDT * Stacey Garcia RN - 07/13/2025 3:49 PM EDT Continued Stay Note [facility] Patient Name: Trung Pool Today's Date: 07/13/2025 Admit Date: 06/25/2025 Plan: Rehab Discharge Plan Row Name 07/13/25 1548 Plan Plan Rehab Plan Comments liaison planner continues to follow on the periphery while placement is found for short term rehab. Please call [phone] if can be of further assistance. Discharge Codes No documentation. Expected Discharge Date and Time Expected Discharge Date Expected Discharge Time Jul 13, 2025 Stacey Garcia RN * Gigi Alcantara MD - 07/13/2025 11:37 AM EDT Images from the original note were not included. [facility] Medicine Services PROGRESS NOTE Patient Name: Trung Pool : [id number] Date of Admission: 06/25/2025 Primary Care Physician: Gustavo Mehta MD Subjective Subjective CC: LLE wound HPI: No significant overnight events, patient doing well this a.m., pain is controlled however continuesto hurt. Is now agreeable to rehab, no complaints otherwise. Objective Objective Vital Signs: Temp: [97.4 ??F (36.3 ??C)-98 ??F (36.7 ??C)] 97.8 ??F (36.6 ??C) Heart Rate: [73-90] 73 Resp: [16-18] 18 BP: (109-133)/(62-75) 124/69 Physical Exam: Constitutional: No acute distress, awake, alert, ill appearing HENT: NCAT, mucous membranes moist Respiratory: Clear to auscultation bilaterally, respiratory effort normal room air Cardiovascular: RRR, no murmurs, rubs, or gallops Gastrointestinal: Positive bowel sounds, soft, nontender, nondistended Musculoskeletal: right BKA, left LLE erythema with wound vac, left foot toes amputated, compressionwrap to LLE Psychiatric: Appropriate affect, cooperative Neurologic: Oriented x 3, strength symmetric in all extremities, Cranial Nerves grossly intact to confrontation, speech clear Skin: No rashes, pale de los santos to BSD with clear yellow urine Results Reviewed: LAB RESULTS: Lab 07/13/25 0808 07/12/25 0454 07/11/25 0423 07/09/25 0712 07/08/25 0542 WBC 6.58 8.43 8.79 9.80 7.37 HEMOGLOBIN 9.4* 10.1* 9.5* 9.5* 9.7* HEMATOCRIT 30.1* 33.1* 31.1* 30.7* 35.5* PLATELETS 256 282 255 278 281 MCV 77.2* 79.8 78.5* 77.9* 84.7 Lab 07/13/25 0808 07/12/25 2333 07/12/25 1535 07/12/25 0454 07/11/25 1110 07/11/25 0423 07/09/25 0712 07/08/25 1418 07/08/25 0542 SODIUM -- 136 138 136 -- 135* 136 < > 131* POTASSIUM -- 5.2 5.6* 6.1* 5.8* 6.2* 5.8* < > 6.0* CHLORIDE -- 104 103 105 -- 104 106 < > 104 CO2 -- 21.9* 19.6* 19.7* -- 22.0 21.8* < > 17.4* ANION GAP -- 10.1 15.4* 11.3 -- 9.0 8.2 < > 9.6 BUN -- 36.8* 34.2* 32.6* -- 26.6* 21.6 < > 19.5 CREATININE -- 1.19 1.13 1.09 -- 1.09 1.05 < > 0.94 EGFR -- 65.3 69.5 72.6 -- 72.6 75.9 < > 86.7 GLUCOSE -- 126* 137* 107* -- 133* 53* < > 120* CALCIUM -- 8.6 8.9 8.9 -- 8.7 8.7 < > 8.5* MAGNESIUM 2.2 -- -- 2.1 -- 2.1 2.1 -- 2.2 < > = values in this interval not displayed. Brief Urine Lab Results (Last result in the past 365 days) Color Clarity Blood Leuk Est Nitrite Protein CREAT Urine [facility] 06/25/252000 Yellow Turbid Large (3+) Large (3+) Positive Trace Brief Urine Lab Results (Last result in the past 365 days) Color Clarity Blood Leuk Est Nitrite Protein CREAT Urine [facility] 06/25/252000 Yellow Turbid Large (3+) Large (3+) Positive Trace Brief Urine Lab Results (Last result in the past 365 days) Color Clarity Blood Leuk Est Nitrite Protein CREAT Urine [facility] 06/25/252000 Yellow Turbid Large (3+) Large (3+) Positive Trace Microbiology Results Abnormal Procedure Component Value - Date/Time Urine Culture - Urine, Indwelling Urethral Catheter [[id number]] (Abnormal) (Susceptibility) Collected: 06/25/252000 Lab Status: Final result Specimen: Urine from Indwelling Urethral Catheter Updated: 06/30/25 1001 Urine Culture >100,000 CFU/mL Proteus mirabilis Narrative: Colonization of the urinary tract without infection is common. Treatment is discouraged unless the patient is symptomatic, , or undergoing an invasive urologic procedure. Susceptibility Proteus mirabilis MURRAY Amoxicillin + Clavulanate Susceptible Ampicillin Resistant Ampicillin + Sulbactam Intermediate Cefazolin (Urine) Resistant Cefepime Resistant Ceftazidime Susceptible Ceftriaxone Resistant Cefuroxime axetil Resistant Ciprofloxacin Resistant Gentamicin Susceptible Levofloxacin Resistant Nitrofurantoin Resistant Piperacillin + Tazobactam Susceptible Trimethoprim + Sulfamethoxazole Resistant Blood Culture - Blood, Hand, Right [[id number]] (Abnormal) (Susceptibility) Collected: 06/25/252029 Lab Status: Edited Result - FINAL Specimen: Blood from Hand, Right Updated: 06/29/25 0713 Blood Culture Enterococcus faecium Comment: Infectious disease consultation is highly recommended. Isolated from Anaerobic Bottle Gram Stain Anaerobic Bottle Gram positive cocci in chains Narrative: Less than seven (7) mL's of blood was collected. Insufficient quantity may yield false negative results. requested linezolid & daptomycin 06/28/25 Susceptibility Enterococcus faecium MURRYA Method Not Specified Ampicillin Susceptible Daptomycin Susceptible dose dependent Gentamicin High Level Synergy Susceptible Linezolid Susceptible (C) [1] Vancomycin Susceptible [1] Appended report. These results have been appended to a previously final verified report. Wound Culture - Swab, Foot, Left [[id number]] (Abnormal) (Susceptibility) Collected: 06/25/251817 Lab Status: Final result Specimen: Swab from Foot, Left Updated: 06/29/25 0645 Wound Culture Heavy growth (4+) Staphylococcus aureus, MRSA Comment: Methicillin resistant Staphylococcus aureus, Patient may be an isolation risk. Moderate growth (3+) Morganella morganii ssp morganii Moderate growth (3+) Proteus mirabilis ESBL Comment: Consider infectious disease consult. Susceptibility results may not correlate to clinical outcomes. Gram Stain Few (2+) WBCs seen Few (2+) Gram positive cocci in pairs, chains and clusters Few (2+) Gram negative bacilli Susceptibility Staphylococcus aureus, MRSA MURRAY Clindamycin Susceptible Erythromycin Resistant Oxacillin Resistant Rifampin Susceptible Tetracycline Susceptible Trimethoprim + Sulfamethoxazole Resistant Vancomycin Susceptible Susceptibility Morganella morganii ssp morganii MURRAY Method Not Specified Amoxicillin + Clavulanate Resistant Ampicillin Resistant Ampicillin + Sulbactam Resistant Cefazolin (Non Urine) Resistant Cefepime Susceptible Cefotaxime Susceptible Ceftazidime Susceptible Cefuroxime axetil Resistant Ciprofloxacin Resistant Gentamicin Susceptible Levofloxacin Resistant Piperacillin + Tazobactam Susceptible Tetracycline Susceptible Trimethoprim + Sulfamethoxazole Resistant Susceptibility Proteus mirabilis ESBL MURRAY Ciprofloxacin Resistant Ertapenem Susceptible Levofloxacin Resistant Meropenem Susceptible Tetracycline Resistant Trimethoprim + Sulfamethoxazole Resistant Susceptibility Comments Morganella morganii ssp morganii Cefotaxime susceptibility can be used as a surrogate for ceftriaxone susceptibility Proteus mirabilis ESBL With the exception of urinary-sourced infections, aminoglycosides should not be used as monotherapy. Blood Culture ID, PCR - Blood, Hand, Right [[id number]] (Abnormal) Collected: 06/25/252029 Lab Status: Final result Specimen: Blood from Hand, Right Updated: 06/26/252101 BCID, PCR Enterococcus faecium. Zee/B (vancomycin resistance gene) not detected. Identification by BCID2 PCR. BOTTLE TYPE Anaerobic Bottle Narrative: Infectious disease consultation is highly recommended to rule out distant foci of infection. MRSA Screen, PCR (Inpatient) - Swab, Nares [[id number]] (Abnormal) Collected: 06/26/2545 Lab Status: Final result Specimen: Swab from Nares Updated: 06/26/25 0850 MRSA PCR Positive Narrative: The negative predictive value of this diagnostic test is high and should only be used to consider de-escalating anti-MRSA therapy. A positive result may indicate colonization with MRSA and must be correlated clinically. Gastrointestinal Panel, PCR - Stool, Per Rectum [[id number]] (Abnormal) Collected: 06/26/2545 Lab Status: Final result Specimen: Stool from Per Rectum Updated: 06/26/25 0850 Campylobacter Not Detected Plesiomonas shigelloides Not Detected Salmonella Not Detected Vibrio Not Detected Vibrio cholerae Not Detected Yersinia enterocolitica Not Detected Enteroaggregative E. coli (EAEC) Not Detected Enteropathogenic E. coli (EPEC) Not Detected Enterotoxigenic E. coli (ETEC) lt/st Not Detected Shiga-like toxin-producing E. coli (STEC) stx1/stx2 Not Detected Shigella/Enteroinvasive E. coli (EIEC) Not Detected Cryptosporidium Not Detected Cyclospora cayetanensis Not Detected Entamoeba histolytica Not Detected Giardia lamblia Not Detected Adenovirus F40/41 Not Detected Astrovirus Not Detected Norovirus GI/GII Detected Comment: If a positive Norovirus result is inconsistent with clinical presentation, the positive Norovirus result should be confirmed using another method. Rotavirus A Not Detected Sapovirus (I, II, IV or V) Not Detected Clostridioides difficile Toxin - Stool, Per Rectum [[id number]] (Abnormal) Collected: 06/26/2545 Lab Status: Final result Specimen: Stool from Per Rectum Updated: 06/26/25 5867 Narrative: The following orders were created for panel order Clostridioides difficile Toxin - Stool, Per Rectum. Procedure Abnormality Status --------- ------ Clostridioides difficile...[[id number]] Abnormal Final result Please view results for these tests on the individual orders. Clostridioides difficile Toxin, PCR - Stool, Per Rectum [[id number]] (Abnormal) Collected: 06/26/25 0046 Lab Status: Final result Specimen: Stool from Per Rectum Updated: 06/26/25 0755 Toxigenic C. difficile by PCR Detected Narrative: DNA from a toxigenic strain of C.difficile has been detected. Microbiology Results Abnormal Procedure Component Value - Date/Time Urine Culture - Urine, Indwelling Urethral Catheter [[id number]] (Abnormal) (Susceptibility) Collected: 06/25/252000 Lab Status: Final result Specimen: Urine from Indwelling Urethral Catheter Updated: 06/30/25 1001 Urine Culture >100,000 CFU/mL Proteus mirabilis Narrative: Colonization of the urinary tract without infection is common. Treatment is discouraged unless the patient is symptomatic, , or undergoing an invasive urologic procedure. Susceptibility Proteus mirabilis MURRAY Amoxicillin + Clavulanate Susceptible Ampicillin Resistant Ampicillin + Sulbactam Intermediate Cefazolin (Urine) Resistant Cefepime Resistant Ceftazidime Susceptible Ceftriaxone Resistant Cefuroxime axetil Resistant Ciprofloxacin Resistant Gentamicin Susceptible Levofloxacin Resistant Nitrofurantoin Resistant Piperacillin + Tazobactam Susceptible Trimethoprim + Sulfamethoxazole Resistant Blood Culture - Blood, Hand, Right [[id number]] (Abnormal) (Susceptibility) Collected: 06/25/252029 Lab Status: Edited Result - FINAL Specimen: Blood from Hand, Right Updated: 06/29/25 0713 Blood Culture Enterococcus faecium Comment: Infectious disease consultation is highly recommended. Isolated from Anaerobic Bottle Gram Stain Anaerobic Bottle Gram positive cocci in chains Narrative: Less than seven (7) mL's of blood was collected. Insufficient quantity may yield false negative results. requested linezolid & daptomycin 06/28/25 Susceptibility Enterococcus faecium MURRAY Method Not Specified Ampicillin Susceptible Daptomycin Susceptible dose dependent Gentamicin High Level Synergy Susceptible Linezolid Susceptible (C) [1] Vancomycin Susceptible [1] Appended report. These results have been appended to a previously final verified report. Wound Culture - Swab, Foot, Left [[id number]] (Abnormal) (Susceptibility) Collected: 06/25/25 181 Lab Status: Final result Specimen: Swab from Foot, Left Updated: 06/29/25 0645 Wound Culture Heavy growth (4+) Staphylococcus aureus, MRSA Comment: Methicillin resistant Staphylococcus aureus, Patient may be an isolation risk. Moderate growth (3+) Morganella morganii ssp morganii Moderate growth (3+) Proteus mirabilis ESBL Comment: Consider infectious disease consult. Susceptibility results may not correlate to clinical outcomes. Gram Stain Few (2+) WBCs seen Few (2+) Gram positive cocci in pairs, chains and clusters Few (2+) Gram negative bacilli Susceptibility Staphylococcus aureus, MRSA MURRAY Clindamycin Susceptible Erythromycin Resistant Oxacillin Resistant Rifampin Susceptible Tetracycline Susceptible Trimethoprim + Sulfamethoxazole Resistant Vancomycin Susceptible Susceptibility Morganella morganii ssp morganii MURRAY Method Not Specified Amoxicillin + Clavulanate Resistant Ampicillin Resistant Ampicillin + Sulbactam Resistant Cefazolin (Non Urine) Resistant Cefepime Susceptible Cefotaxime Susceptible Ceftazidime Susceptible Cefuroxime axetil Resistant Ciprofloxacin Resistant Gentamicin Susceptible Levofloxacin Resistant Piperacillin + Tazobactam Susceptible Tetracycline Susceptible Trimethoprim + Sulfamethoxazole Resistant Susceptibility Proteus mirabilis ESBL MURRAY Ciprofloxacin Resistant Ertapenem Susceptible Levofloxacin Resistant Meropenem Susceptible Tetracycline Resistant Trimethoprim + Sulfamethoxazole Resistant Susceptibility Comments Morganella morganii ssp morganii Cefotaxime susceptibility can be used as a surrogate for ceftriaxone susceptibility Proteus mirabilis ESBL With the exception of urinary-sourced infections, aminoglycosides should not be used as monotherapy. Blood Culture ID, PCR - Blood, Hand, Right [[id number]] (Abnormal) Collected: 06/25/252029 Lab Status: Final result Specimen: Blood from Hand, Right Updated: 06/26/252101 BCID, PCR Enterococcus faecium. Zee/B (vancomycin resistance gene) not detected. Identification by BCID2 PCR. BOTTLE TYPE Anaerobic Bottle Narrative: Infectious disease consultation is highly recommended to rule out distant foci of infection. MRSA Screen, PCR (Inpatient) - Swab, Nares [[id number]] (Abnormal) Collected: 06/26/2545 Lab Status: Final result Specimen: Swab from Nares Updated: 06/26/25 0850 MRSA PCR Positive Narrative: The negative predictive value of this diagnostic test is high and should only be used to consider de-escalating anti-MRSA therapy. A positive result may indicate colonization with MRSA and must be correlated clinically. Gastrointestinal Panel, PCR - Stool, Per Rectum [[id number]] (Abnormal) Collected: 06/26/2545 Lab Status: Final result Specimen: Stool from Per Rectum Updated: 06/26/25 0850 Campylobacter Not Detected Plesiomonas shigelloides Not Detected Salmonella Not Detected Vibrio Not Detected Vibrio cholerae Not Detected Yersinia enterocolitica Not Detected Enteroaggregative E. coli (EAEC) Not Detected Enteropathogenic E. coli (EPEC) Not Detected Enterotoxigenic E. coli (ETEC) lt/st Not Detected Shiga-like toxin-producing E. coli (STEC) stx1/stx2 Not Detected Shigella/Enteroinvasive E. coli (EIEC) Not Detected Cryptosporidium Not Detected Cyclospora cayetanensis Not Detected Entamoeba histolytica Not Detected Giardia lamblia Not Detected Adenovirus F40/41 Not Detected Astrovirus Not Detected Norovirus GI/GII Detected Comment: If a positive Norovirus result is inconsistent with clinical presentation, the positive Norovirus result should be confirmed using another method. Rotavirus A Not Detected Sapovirus (I, II, IV or V) Not Detected Clostridioides difficile Toxin - Stool, Per Rectum [[id number]] (Abnormal) Collected: 06/26/2545 Lab Status: Final result Specimen: Stool from Per Rectum Updated: 06/26/25754 Narrative: The following orders were created for panel order Clostridioides difficile Toxin - Stool, Per Rectum. Procedure Abnormality Status --------- ------ Clostridioides difficile...[[id number]] Abnormal Final result Please view results for these tests on the individual orders. Clostridioides difficile Toxin, PCR - Stool, Per Rectum [[id number]] (Abnormal) Collected: 06/26/2545 Lab Status: Final result Specimen: Stool from Per Rectum Updated: 06/26/25754 Toxigenic C. difficile by PCR Detected Narrative: DNA from a toxigenic strain of C.difficile has been detected. Microbiology Results Abnormal Procedure Component Value - Date/Time Urine Culture - Urine, Indwelling Urethral Catheter [[id number]] (Abnormal) (Susceptibility) Collected: 06/25/252000 Lab Status: Final result Specimen: Urine from Indwelling Urethral Catheter Updated: 06/30/25 1001 Urine Culture >100,000 CFU/mL Proteus mirabilis Narrative: Colonization of the urinary tract without infection is common. Treatment is discouraged unless the patient is symptomatic, , or undergoing an invasive urologic procedure. Susceptibility Proteus mirabilis MURRAY Amoxicillin + Clavulanate Susceptible Ampicillin Resistant Ampicillin + Sulbactam Intermediate Cefazolin (Urine) Resistant Cefepime Resistant Ceftazidime Susceptible Ceftriaxone Resistant Cefuroxime axetil Resistant Ciprofloxacin Resistant Gentamicin Susceptible Levofloxacin Resistant Nitrofurantoin Resistant Piperacillin + Tazobactam Susceptible Trimethoprim + Sulfamethoxazole Resistant Blood Culture - Blood, Hand, Right [[id number]] (Abnormal) (Susceptibility) Collected: 06/25/25 2030 Lab Status: Edited Result - FINAL Specimen: Blood from Hand, Right Updated: 06/29/25 0713 Blood Culture Enterococcus faecium Comment: Infectious disease consultation is highly recommended. Isolated from Anaerobic Bottle Gram Stain Anaerobic Bottle Gram positive cocci in chains Narrative: Less than seven (7) mL's of blood was collected. Insufficient quantity may yield false negative results. requested linezolid & daptomycin 06/28/25 Susceptibility Enterococcus faecium MURRAY Method Not Specified Ampicillin Susceptible Daptomycin Susceptible dose dependent Gentamicin High Level Synergy Susceptible Linezolid Susceptible (C) [1] Vancomycin Susceptible [1] Appended report. These results have been appended to a previously final verified report. Wound Culture - Swab, Foot, Left [[id number]] (Abnormal) (Susceptibility) Collected: 06/25/25 1818 Lab Status: Final result Specimen: Swab from Foot, Left Updated: 06/29/25 0645 Wound Culture Heavy growth (4+) Staphylococcus aureus, MRSA Comment: Methicillin resistant Staphylococcus aureus, Patient may be an isolation risk. Moderate growth (3+) Morganella morganii ssp morganii Moderate growth (3+) Proteus mirabilis ESBL Comment: Consider infectious disease consult. Susceptibility results may not correlate to clinical outcomes. Gram Stain Few (2+) WBCs seen Few (2+) Gram positive cocci in pairs, chains and clusters Few (2+) Gram negative bacilli Susceptibility Staphylococcus aureus, MRSA MURRAY Clindamycin Susceptible Erythromycin Resistant Oxacillin Resistant Rifampin Susceptible Tetracycline Susceptible Trimethoprim + Sulfamethoxazole Resistant Vancomycin Susceptible Susceptibility Morganella morganii ssp morganii MURRAY Method Not Specified Amoxicillin + Clavulanate Resistant Ampicillin Resistant Ampicillin + Sulbactam Resistant Cefazolin (Non Urine) Resistant Cefepime Susceptible Cefotaxime Susceptible Ceftazidime Susceptible Cefuroxime axetil Resistant Ciprofloxacin Resistant Gentamicin Susceptible Levofloxacin Resistant Piperacillin + Tazobactam Susceptible Tetracycline Susceptible Trimethoprim + Sulfamethoxazole Resistant Susceptibility Proteus mirabilis ESBL MURRAY Ciprofloxacin Resistant Ertapenem Susceptible Levofloxacin Resistant Meropenem Susceptible Tetracycline Resistant Trimethoprim + Sulfamethoxazole Resistant Susceptibility Comments Morganella morganii ssp morganii Cefotaxime susceptibility can be used as a surrogate for ceftriaxone susceptibility Proteus mirabilis ESBL With the exception of urinary-sourced infections, aminoglycosides should not be used as monotherapy. Blood Culture ID, PCR - Blood, Hand, Right [[id number]] (Abnormal) Collected: 06/25/252029 Lab Status: Final result Specimen: Blood from Hand, Right Updated: 06/26/252101 BCID, PCR Enterococcus faecium. Zee/B (vancomycin resistance gene) not detected. Identification by BCID2 PCR. BOTTLE TYPE Anaerobic Bottle Narrative: Infectious disease consultation is highly recommended to rule out distant foci of infection. MRSA Screen, PCR (Inpatient) - Swab, Nares [[id number]] (Abnormal) Collected: 06/26/2545 Lab Status: Final result Specimen: Swab from Nares Updated: 06/26/25849 MRSA PCR Positive Narrative: The negative predictive value of this diagnostic test is high and should only be used to consider de-escalating anti-MRSA therapy. A positive result may indicate colonization with MRSA and must be correlated clinically. Gastrointestinal Panel, PCR - Stool, Per Rectum [[id number]] (Abnormal) Collected: 06/26/2545 Lab Status: Final result Specimen: Stool from Per Rectum Updated: 06/26/25 0850 Campylobacter Not Detected Plesiomonas shigelloides Not Detected Salmonella Not Detected Vibrio Not Detected Vibrio cholerae Not Detected Yersinia enterocolitica Not Detected Enteroaggregative E. coli (EAEC) Not Detected Enteropathogenic E. coli (EPEC) Not Detected Enterotoxigenic E. coli (ETEC) lt/st Not Detected Shiga-like toxin-producing E. coli (STEC) stx1/stx2 Not Detected Shigella/Enteroinvasive E. coli (EIEC) Not Detected Cryptosporidium Not Detected Cyclospora cayetanensis Not Detected Entamoeba histolytica Not Detected Giardia lamblia Not Detected Adenovirus F40/41 Not Detected Astrovirus Not Detected Norovirus GI/GII Detected Comment: If a positive Norovirus result is inconsistent with clinical presentation, the positive Norovirus result should be confirmed using another method. Rotavirus A Not Detected Sapovirus (I, II, IV or V) Not Detected Clostridioides difficile Toxin - Stool, Per Rectum [[id number]] (Abnormal) Collected: 06/26/2545 Lab Status: Final result Specimen: Stool from Per Rectum Updated: 06/26/25754 Narrative: The following orders were created for panel order Clostridioides difficile Toxin - Stool, Per Rectum. Procedure Abnormality Status --------- ------ Clostridioides difficile...[[id number]] Abnormal Final result Please view results for these tests on the individual orders. Clostridioides difficile Toxin, PCR - Stool, Per Rectum [[id number]] (Abnormal) Collected: 06/26/2545 Lab Status: Final result Specimen: Stool from Per Rectum Updated: 06/26/25754 Toxigenic C. difficile by PCR Detected Narrative: DNA from a toxigenic strain of C.difficile has been detected. Microbiology Results Abnormal Procedure Component Value - Date/Time Urine Culture - Urine, Indwelling Urethral Catheter [[id number]] (Abnormal) (Susceptibility) Collected: 06/25/252000 Lab Status: Final result Specimen: Urine from Indwelling Urethral Catheter Updated: 06/30/25 1001 Urine Culture >100,000 CFU/mL Proteus mirabilis Narrative: Colonization of the urinary tract without infection is common. Treatment is discouraged unless the patient is symptomatic, , or undergoing an invasive urologic procedure. Susceptibility Proteus mirabilis MURRAY Amoxicillin + Clavulanate Susceptible Ampicillin Resistant Ampicillin + Sulbactam Intermediate Cefazolin (Urine) Resistant Cefepime Resistant Ceftazidime Susceptible Ceftriaxone Resistant Cefuroxime axetil Resistant Ciprofloxacin Resistant Gentamicin Susceptible Levofloxacin Resistant Nitrofurantoin Resistant Piperacillin + Tazobactam Susceptible Trimethoprim + Sulfamethoxazole Resistant Blood Culture - Blood, Hand, Right [[id number]] (Abnormal) (Susceptibility) Collected: 06/25/252029 Lab Status: Edited Result - FINAL Specimen: Blood from Hand, Right Updated: 06/29/25 0713 Blood Culture Enterococcus faecium Comment: Infectious disease consultation is highly recommended. Isolated from Anaerobic Bottle Gram Stain Anaerobic Bottle Gram positive cocci in chains Narrative: Less than seven (7) mL's of blood was collected. Insufficient quantity may yield false negative results. requested linezolid & daptomycin 06/28/25 Susceptibility Enterococcus faecium MURRAY Method Not Specified Ampicillin Susceptible Daptomycin Susceptible dose dependent Gentamicin High Level Synergy Susceptible Linezolid Susceptible (C) [1] Vancomycin Susceptible [1] Appended report. These results have been appended to a previously final verified report. Wound Culture - Swab, Foot, Left [[id number]] (Abnormal) (Susceptibility) Collected: 06/25/25 1818 Lab Status: Final result Specimen: Swab from Foot, Left Updated: 06/29/25 0645 Wound Culture Heavy growth (4+) Staphylococcus aureus, MRSA Comment: Methicillin resistant Staphylococcus aureus, Patient may be an isolation risk. Moderate growth (3+) Morganella morganii ssp morganii Moderate growth (3+) Proteus mirabilis ESBL Comment: Consider infectious disease consult. Susceptibility results may not correlate to clinical outcomes. Gram Stain Few (2+) WBCs seen Few (2+) Gram positive cocci in pairs, chains and clusters Few (2+) Gram negative bacilli Susceptibility Staphylococcus aureus, MRSA MURRAY Clindamycin Susceptible Erythromycin Resistant Oxacillin Resistant Rifampin Susceptible Tetracycline Susceptible Trimethoprim + Sulfamethoxazole Resistant Vancomycin Susceptible Susceptibility Morganella morganii ssp morganii MURRAY Method Not Specified Amoxicillin + Clavulanate Resistant Ampicillin Resistant Ampicillin + Sulbactam Resistant Cefazolin (Non Urine) Resistant Cefepime Susceptible Cefotaxime Susceptible Ceftazidime Susceptible Cefuroxime axetil Resistant Ciprofloxacin Resistant Gentamicin Susceptible Levofloxacin Resistant Piperacillin + Tazobactam Susceptible Tetracycline Susceptible Trimethoprim + Sulfamethoxazole Resistant Susceptibility Proteus mirabilis ESBL MURRAY Ciprofloxacin Resistant Ertapenem Susceptible Levofloxacin Resistant Meropenem Susceptible Tetracycline Resistant Trimethoprim + Sulfamethoxazole Resistant Susceptibility Comments Morganella morganii ssp morganii Cefotaxime susceptibility can be used as a surrogate for ceftriaxone susceptibility Proteus mirabilis ESBL With the exception of urinary-sourced infections, aminoglycosides should not be used as monotherapy. Blood Culture ID, PCR - Blood, Hand, Right [[id number]] (Abnormal) Collected: 06/25/25 2030 Lab Status: Final result Specimen: Blood from Hand, Right Updated: 06/26/252101 BCID, PCR Enterococcus faecium. Zee/B (vancomycin resistance gene) not detected. Identification by BCID2 PCR. BOTTLE TYPE Anaerobic Bottle Narrative: Infectious disease consultation is highly recommended to rule out distant foci of infection. MRSA Screen, PCR (Inpatient) - Swab, Nares [[id number]] (Abnormal) Collected: 06/26/2545 Lab Status: Final result Specimen: Swab from Nares Updated: 06/26/25 0850 MRSA PCR Positive Narrative: The negative predictive value of this diagnostic test is high and should only be used to consider de-escalating anti-MRSA therapy. A positive result may indicate colonization with MRSA and must be correlated clinically. Gastrointestinal Panel, PCR - Stool, Per Rectum [[id number]] (Abnormal) Collected: 06/26/2545 Lab Status: Final result Specimen: Stool from Per Rectum Updated: 06/26/25 0850 Campylobacter Not Detected Plesiomonas shigelloides Not Detected Salmonella Not Detected Vibrio Not Detected Vibrio cholerae Not Detected Yersinia enterocolitica Not Detected Enteroaggregative E. coli (EAEC) Not Detected Enteropathogenic E. coli (EPEC) Not Detected Enterotoxigenic E. coli (ETEC) lt/st Not Detected Shiga-like toxin-producing E. coli (STEC) stx1/stx2 Not Detected Shigella/Enteroinvasive E. coli (EIEC) Not Detected Cryptosporidium Not Detected Cyclospora cayetanensis Not Detected Entamoeba histolytica Not Detected Giardia lamblia Not Detected Adenovirus F40/41 Not Detected Astrovirus Not Detected Norovirus GI/GII Detected Comment: If a positive Norovirus result is inconsistent with clinical presentation, the positive Norovirus result should be confirmed using another method. Rotavirus A Not Detected Sapovirus (I, II, IV or V) Not Detected Clostridioides difficile Toxin - Stool, Per Rectum [[id number]] (Abnormal) Collected: 06/26/2545 Lab Status: Final result Specimen: Stool from Per Rectum Updated: 06/26/25 9700 Narrative: The following orders were created for panel order Clostridioides difficile Toxin - Stool, Per Rectum. Procedure Abnormality Status --------- ------ Clostridioides difficile...[[id number]] Abnormal Final result Please view results for these tests on the individual orders. Clostridioides difficile Toxin, PCR - Stool, Per Rectum [[id number]] (Abnormal) Collected: 06/26/2545 Lab Status: Final result Specimen: Stool from Per Rectum Updated: 06/26/25 0755 Toxigenic C. difficile by PCR Detected Narrative: DNA from a toxigenic strain of C.difficile has been detected. Microbiology Results Abnormal Procedure Component Value - Date/Time Urine Culture - Urine, Indwelling Urethral Catheter [[id number]] (Abnormal) (Susceptibility) Collected: 06/25/252000 Lab Status: Final result Specimen: Urine from Indwelling Urethral Catheter Updated: 06/30/25 1001 Urine Culture >100,000 CFU/mL Proteus mirabilis Narrative: Colonization of the urinary tract without infection is common. Treatment is discouraged unless the patient is symptomatic, , or undergoing an invasive urologic procedure. Susceptibility Proteus mirabilis MURRAY Amoxicillin + Clavulanate Susceptible Ampicillin Resistant Ampicillin + Sulbactam Intermediate Cefazolin (Urine) Resistant Cefepime Resistant Ceftazidime Susceptible Ceftriaxone Resistant Cefuroxime axetil Resistant Ciprofloxacin Resistant Gentamicin Susceptible Levofloxacin Resistant Nitrofurantoin Resistant Piperacillin + Tazobactam Susceptible Trimethoprim + Sulfamethoxazole Resistant Blood Culture - Blood, Hand, Right [[id number]] (Abnormal) (Susceptibility) Collected: 06/25/252029 Lab Status: Edited Result - FINAL Specimen: Blood from Hand, Right Updated: 06/29/25 0713 Blood Culture Enterococcus faecium Comment: Infectious disease consultation is highly recommended. Isolated from Anaerobic Bottle Gram Stain Anaerobic Bottle Gram positive cocci in chains Narrative: Less than seven (7) mL's of blood was collected. Insufficient quantity may yield false negative results. requested linezolid & daptomycin 06/28/25 Susceptibility Enterococcus faecium MURRAY Method Not Specified Ampicillin Susceptible Daptomycin Susceptible dose dependent Gentamicin High Level Synergy Susceptible Linezolid Susceptible (C) [1] Vancomycin Susceptible [1] Appended report. These results have been appended to a previously final verified report. Wound Culture - Swab, Foot, Left [[id number]] (Abnormal) (Susceptibility) Collected: 06/25/25 181 Lab Status: Final result Specimen: Swab from Foot, Left Updated: 06/29/25 0645 Wound Culture Heavy growth (4+) Staphylococcus aureus, MRSA Comment: Methicillin resistant Staphylococcus aureus, Patient may be an isolation risk. Moderate growth (3+) Morganella morganii ssp morganii Moderate growth (3+) Proteus mirabilis ESBL Comment: Consider infectious disease consult. Susceptibility results may not correlate to clinical outcomes. Gram Stain Few (2+) WBCs seen Few (2+) Gram positive cocci in pairs, chains and clusters Few (2+) Gram negative bacilli Susceptibility Staphylococcus aureus, MRSA MURRAY Clindamycin Susceptible Erythromycin Resistant Oxacillin Resistant Rifampin Susceptible Tetracycline Susceptible Trimethoprim + Sulfamethoxazole Resistant Vancomycin Susceptible Susceptibility Morganella morganii ssp morganii MURRAY Method Not Specified Amoxicillin + Clavulanate Resistant Ampicillin Resistant Ampicillin + Sulbactam Resistant Cefazolin (Non Urine) Resistant Cefepime Susceptible Cefotaxime Susceptible Ceftazidime Susceptible Cefuroxime axetil Resistant Ciprofloxacin Resistant Gentamicin Susceptible Levofloxacin Resistant Piperacillin + Tazobactam Susceptible Tetracycline Susceptible Trimethoprim + Sulfamethoxazole Resistant Susceptibility Proteus mirabilis ESBL MURRAY Ciprofloxacin Resistant Ertapenem Susceptible Levofloxacin Resistant Meropenem Susceptible Tetracycline Resistant Trimethoprim + Sulfamethoxazole Resistant Susceptibility Comments Morganella morganii ssp morganii Cefotaxime susceptibility can be used as a surrogate for ceftriaxone susceptibility Proteus mirabilis ESBL With the exception of urinary-sourced infections, aminoglycosides should not be used as monotherapy. Blood Culture ID, PCR - Blood, Hand, Right [[id number]] (Abnormal) Collected: 06/25/252029 Lab Status: Final result Specimen: Blood from Hand, Right Updated: 06/26/252101 BCID, PCR Enterococcus faecium. Zee/B (vancomycin resistance gene) not detected. Identification by BCID2 PCR. BOTTLE TYPE Anaerobic Bottle Narrative: Infectious disease consultation is highly recommended to rule out distant foci of infection. MRSA Screen, PCR (Inpatient) - Swab, Nares [[id number]] (Abnormal) Collected: 06/26/2545 Lab Status: Final result Specimen: Swab from Nares Updated: 06/26/25 0850 MRSA PCR Positive Narrative: The negative predictive value of this diagnostic test is high and should only be used to consider de-escalating anti-MRSA therapy. A positive result may indicate colonization with MRSA and must be correlated clinically. Gastrointestinal Panel, PCR - Stool, Per Rectum [[id number]] (Abnormal) Collected: 06/26/2545 Lab Status: Final result Specimen: Stool from Per Rectum Updated: 06/26/25 0850 Campylobacter Not Detected Plesiomonas shigelloides Not Detected Salmonella Not Detected Vibrio Not Detected Vibrio cholerae Not Detected Yersinia enterocolitica Not Detected Enteroaggregative E. coli (EAEC) Not Detected Enteropathogenic E. coli (EPEC) Not Detected Enterotoxigenic E. coli (ETEC) lt/st Not Detected Shiga-like toxin-producing E. coli (STEC) stx1/stx2 Not Detected Shigella/Enteroinvasive E. coli (EIEC) Not Detected Cryptosporidium Not Detected Cyclospora cayetanensis Not Detected Entamoeba histolytica Not Detected Giardia lamblia Not Detected Adenovirus F40/41 Not Detected Astrovirus Not Detected Norovirus GI/GII Detected Comment: If a positive Norovirus result is inconsistent with clinical presentation, the positive Norovirus result should be confirmed using another method. Rotavirus A Not Detected Sapovirus (I, II, IV or V) Not Detected Clostridioides difficile Toxin - Stool, Per Rectum [[id number]] (Abnormal) Collected: 06/26/2545 Lab Status: Final result Specimen: Stool from Per Rectum Updated: 06/26/25754 Narrative: The following orders were created for panel order Clostridioides difficile Toxin - Stool, Per Rectum. Procedure Abnormality Status --------- ------ Clostridioides difficile...[[id number]] Abnormal Final result Please view results for these tests on the individual orders. Clostridioides difficile Toxin, PCR - Stool, Per Rectum [[id number]] (Abnormal) Collected: 06/26/2545 Lab Status: Final result Specimen: Stool from Per Rectum Updated: 06/26/25754 Toxigenic C. difficile by PCR Detected Narrative: DNA from a toxigenic strain of C.difficile has been detected. Microbiology Results Abnormal Procedure Component Value - Date/Time Urine Culture - Urine, Indwelling Urethral Catheter [[id number]] (Abnormal) (Susceptibility) Collected: 06/25/252000 Lab Status: Final result Specimen: Urine from Indwelling Urethral Catheter Updated: 06/30/25 1001 Urine Culture >100,000 CFU/mL Proteus mirabilis Narrative: Colonization of the urinary tract without infection is common. Treatment is discouraged unless the patient is symptomatic, , or undergoing an invasive urologic procedure. Susceptibility Proteus mirabilis MURRAY Amoxicillin + Clavulanate Susceptible Ampicillin Resistant Ampicillin + Sulbactam Intermediate Cefazolin (Urine) Resistant Cefepime Resistant Ceftazidime Susceptible Ceftriaxone Resistant Cefuroxime axetil Resistant Ciprofloxacin Resistant Gentamicin Susceptible Levofloxacin Resistant Nitrofurantoin Resistant Piperacillin + Tazobactam Susceptible Trimethoprim + Sulfamethoxazole Resistant Blood Culture - Blood, Hand, Right [[id number]] (Abnormal) (Susceptibility) Collected: 06/25/252029 Lab Status: Edited Result - FINAL Specimen: Blood from Hand, Right Updated: 06/29/25 0713 Blood Culture Enterococcus faecium Comment: Infectious disease consultation is highly recommended. Isolated from Anaerobic Bottle Gram Stain Anaerobic Bottle Gram positive cocci in chains Narrative: Less than seven (7) mL's of blood was collected. Insufficient quantity may yield false negative results. requested linezolid & daptomycin 06/28/25 Susceptibility Enterococcus faecium MURRAY Method Not Specified Ampicillin Susceptible Daptomycin Susceptible dose dependent Gentamicin High Level Synergy Susceptible Linezolid Susceptible (C) [1] Vancomycin Susceptible [1] Appended report. These results have been appended to a previously final verified report. Wound Culture - Swab, Foot, Left [[id number]] (Abnormal) (Susceptibility) Collected: 06/25/25 181 Lab Status: Final result Specimen: Swab from Foot, Left Updated: 06/29/25 0645 Wound Culture Heavy growth (4+) Staphylococcus aureus, MRSA Comment: Methicillin resistant Staphylococcus aureus, Patient may be an isolation risk. Moderate growth (3+) Morganella morganii ssp morganii Moderate growth (3+) Proteus mirabilis ESBL Comment: Consider infectious disease consult. Susceptibility results may not correlate to clinical outcomes. Gram Stain Few (2+) WBCs seen Few (2+) Gram positive cocci in pairs, chains and clusters Few (2+) Gram negative bacilli Susceptibility Staphylococcus aureus, MRSA MURRAY Clindamycin Susceptible Erythromycin Resistant Oxacillin Resistant Rifampin Susceptible Tetracycline Susceptible Trimethoprim + Sulfamethoxazole Resistant Vancomycin Susceptible Susceptibility Morganella morganii ssp morganii MURRAY Method Not Specified Amoxicillin + Clavulanate Resistant Ampicillin Resistant Ampicillin + Sulbactam Resistant Cefazolin (Non Urine) Resistant Cefepime Susceptible Cefotaxime Susceptible Ceftazidime Susceptible Cefuroxime axetil Resistant Ciprofloxacin Resistant Gentamicin Susceptible Levofloxacin Resistant Piperacillin + Tazobactam Susceptible Tetracycline Susceptible Trimethoprim + Sulfamethoxazole Resistant Susceptibility Proteus mirabilis ESBL MURRAY Ciprofloxacin Resistant Ertapenem Susceptible Levofloxacin Resistant Meropenem Susceptible Tetracycline Resistant Trimethoprim + Sulfamethoxazole Resistant Susceptibility Comments Morganella morganii ssp morganii Cefotaxime susceptibility can be used as a surrogate for ceftriaxone susceptibility Proteus mirabilis ESBL With the exception of urinary-sourced infections, aminoglycosides should not be used as monotherapy. Blood Culture ID, PCR - Blood, Hand, Right [[id number]] (Abnormal) Collected: 06/25/252029 Lab Status: Final result Specimen: Blood from Hand, Right Updated: 06/26/252101 BCID, PCR Enterococcus faecium. Zee/B (vancomycin resistance gene) not detected. Identification by BCID2 PCR. BOTTLE TYPE Anaerobic Bottle Narrative: Infectious disease consultation is highly recommended to rule out distant foci of infection. MRSA Screen, PCR (Inpatient) - Swab, Nares [[id number]] (Abnormal) Collected: 06/26/2545 Lab Status: Final result Specimen: Swab from Nares Updated: 06/26/25 0850 MRSA PCR Positive Narrative: The negative predictive value of this diagnostic test is high and should only be used to consider de-escalating anti-MRSA therapy. A positive result may indicate colonization with MRSA and must be correlated clinically. Gastrointestinal Panel, PCR - Stool, Per Rectum [[id number]] (Abnormal) Collected: 06/26/2545 Lab Status: Final result Specimen: Stool from Per Rectum Updated: 06/26/25 0850 Campylobacter Not Detected Plesiomonas shigelloides Not Detected Salmonella Not Detected Vibrio Not Detected Vibrio cholerae Not Detected Yersinia enterocolitica Not Detected Enteroaggregative E. coli (EAEC) Not Detected Enteropathogenic E. coli (EPEC) Not Detected Enterotoxigenic E. coli (ETEC) lt/st Not Detected Shiga-like toxin-producing E. coli (STEC) stx1/stx2 Not Detected Shigella/Enteroinvasive E. coli (EIEC) Not Detected Cryptosporidium Not Detected Cyclospora cayetanensis Not Detected Entamoeba histolytica Not Detected Giardia lamblia Not Detected Adenovirus F40/41 Not Detected Astrovirus Not Detected Norovirus GI/GII Detected Comment: If a positive Norovirus result is inconsistent with clinical presentation, the positive Norovirus result should be confirmed using another method. Rotavirus A Not Detected Sapovirus (I, II, IV or V) Not Detected Clostridioides difficile Toxin - Stool, Per Rectum [[id number]] (Abnormal) Collected: 06/26/2545 Lab Status: Final result Specimen: Stool from Per Rectum Updated: 06/26/25 0755 Narrative: The following orders were created for panel order Clostridioides difficile Toxin - Stool, Per Rectum. Procedure Abnormality Status --------- ------ Clostridioides difficile...[[id number]] Abnormal Final result Please view results for these tests on the individual orders. Clostridioides difficile Toxin, PCR - Stool, Per Rectum [[id number]] (Abnormal) Collected: 06/26/2545 Lab Status: Final result Specimen: Stool from Per Rectum Updated: 06/26/25754 Toxigenic C. difficile by PCR Detected Narrative: DNA from a toxigenic strain of C.difficile has been detected. Microbiology Results Abnormal Procedure Component Value - Date/Time Urine Culture - Urine, Indwelling Urethral Catheter [[id number]] (Abnormal) (Susceptibility) Collected: 06/25/252000 Lab Status: Final result Specimen: Urine from Indwelling Urethral Catheter Updated: 06/30/25 1001 Urine Culture >100,000 CFU/mL Proteus mirabilis Narrative: Colonization of the urinary tract without infection is common. Treatment is discouraged unless the patient is symptomatic, , or undergoing an invasive urologic procedure. Susceptibility Proteus mirabilis MURRAY Amoxicillin + Clavulanate Susceptible Ampicillin Resistant Ampicillin + Sulbactam Intermediate Cefazolin (Urine) Resistant Cefepime Resistant Ceftazidime Susceptible Ceftriaxone Resistant Cefuroxime axetil Resistant Ciprofloxacin Resistant Gentamicin Susceptible Levofloxacin Resistant Nitrofurantoin Resistant Piperacillin + Tazobactam Susceptible Trimethoprim + Sulfamethoxazole Resistant Blood Culture - Blood, Hand, Right [[id number]] (Abnormal) (Susceptibility) Collected: 06/25/252029 Lab Status: Edited Result - FINAL Specimen: Blood from Hand, Right Updated: 06/29/25 07 Blood Culture Enterococcus faecium Comment: Infectious disease consultation is highly recommended. Isolated from Anaerobic Bottle Gram Stain Anaerobic Bottle Gram positive cocci in chains Narrative: Less than seven (7) mL's of blood was collected. Insufficient quantity may yield false negative results. requested linezolid & daptomycin 06/28/25 Susceptibility Enterococcus faecium MURRAY Method Not Specified Ampicillin Susceptible Daptomycin Susceptible dose dependent Gentamicin High Level Synergy Susceptible Linezolid Susceptible (C) [1] Vancomycin Susceptible [1] Appended report. These results have been appended to a previously final verified report. Wound Culture - Swab, Foot, Left [[id number]] (Abnormal) (Susceptibility) Collected: 06/25/258 Lab Status: Final result Specimen: Swab from Foot, Left Updated: 06/29/25 0645 Wound Culture Heavy growth (4+) Staphylococcus aureus, MRSA Comment: Methicillin resistant Staphylococcus aureus, Patient may be an isolation risk. Moderate growth (3+) Morganella morganii ssp morganii Moderate growth (3+) Proteus mirabilis ESBL Comment: Consider infectious disease consult. Susceptibility results may not correlate to clinical outcomes. Gram Stain Few (2+) WBCs seen Few (2+) Gram positive cocci in pairs, chains and clusters Few (2+) Gram negative bacilli Susceptibility Staphylococcus aureus, MRSA MURRAY Clindamycin Susceptible Erythromycin Resistant Oxacillin Resistant Rifampin Susceptible Tetracycline Susceptible Trimethoprim + Sulfamethoxazole Resistant Vancomycin Susceptible Susceptibility Morganella morganii ssp morganii MURRAY Method Not Specified Amoxicillin + Clavulanate Resistant Ampicillin Resistant Ampicillin + Sulbactam Resistant Cefazolin (Non Urine) Resistant Cefepime Susceptible Cefotaxime Susceptible Ceftazidime Susceptible Cefuroxime axetil Resistant Ciprofloxacin Resistant Gentamicin Susceptible Levofloxacin Resistant Piperacillin + Tazobactam Susceptible Tetracycline Susceptible Trimethoprim + Sulfamethoxazole Resistant Susceptibility Proteus mirabilis ESBL MURRAY Ciprofloxacin Resistant Ertapenem Susceptible Levofloxacin Resistant Meropenem Susceptible Tetracycline Resistant Trimethoprim + Sulfamethoxazole Resistant Susceptibility Comments Morganella morganii ssp morganii Cefotaxime susceptibility can be used as a surrogate for ceftriaxone susceptibility Proteus mirabilis ESBL With the exception of urinary-sourced infections, aminoglycosides should not be used as monotherapy. Blood Culture ID, PCR - Blood, Hand, Right [[id number]] (Abnormal) Collected: 06/25/25 2030 Lab Status: Final result Specimen: Blood from Hand, Right Updated: 06/26/252101 BCID, PCR Enterococcus faecium. Zee/B (vancomycin resistance gene) not detected. Identification by BCID2 PCR. BOTTLE TYPE Anaerobic Bottle Narrative: Infectious disease consultation is highly recommended to rule out distant foci of infection. MRSA Screen, PCR (Inpatient) - Swab, Nares [[id number]] (Abnormal) Collected: 10/14/25 0046 Lab Status: Final result Specimen: Swab from Nares Updated: 06/26/25849 MRSA PCR Positive Narrative: The negative predictive value of this diagnostic test is high and should only be used to consider de-escalating anti-MRSA therapy. A positive result may indicate colonization with MRSA and must be correlated clinically. Gastrointestinal Panel, PCR - Stool, Per Rectum [[id number]] (Abnormal) Collected: 06/26/2545 Lab Status: Final result Specimen: Stool from Per Rectum Updated: 06/26/25849 Campylobacter Not Detected Plesiomonas shigelloides Not Detected Salmonella Not Detected Vibrio Not Detected Vibrio cholerae Not Detected Yersinia enterocolitica Not Detected Enteroaggregative E. coli (EAEC) Not Detected Enteropathogenic E. coli (EPEC) Not Detected Enterotoxigenic E. coli (ETEC) lt/st Not Detected Shiga-like toxin-producing E. coli (STEC) stx1/stx2 Not Detected Shigella/Enteroinvasive E. coli (EIEC) Not Detected Cryptosporidium Not Detected Cyclospora cayetanensis Not Detected Entamoeba histolytica Not Detected Giardia lamblia Not Detected Adenovirus F40/41 Not Detected Astrovirus Not Detected Norovirus GI/GII Detected Comment: If a positive Norovirus result is inconsistent with clinical presentation, the positive Norovirus result should be confirmed using another method. Rotavirus A Not Detected Sapovirus (I, II, IV or V) Not Detected Clostridioides difficile Toxin - Stool, Per Rectum [[id number]] (Abnormal) Collected: 06/26/2545 Lab Status: Final result Specimen: Stool from Per Rectum Updated: 06/26/25754 Narrative: The following orders were created for panel order Clostridioides difficile Toxin - Stool, Per Rectum. Procedure Abnormality Status --------- ------ Clostridioides difficile...[[id number]] Abnormal Final result Please view results for these tests on the individual orders. Clostridioides difficile Toxin, PCR - Stool, Per Rectum [[id number]] (Abnormal) Collected: 06/26/2545 Lab Status: Final result Specimen: Stool from Per Rectum Updated: 06/26/25754 Toxigenic C. difficile by PCR Detected Narrative: DNA from a toxigenic strain of C.difficile has been detected. Microbiology Results Abnormal Procedure Component Value - Date/Time Urine Culture - Urine, Indwelling Urethral Catheter [[id number]] (Abnormal) (Susceptibility) Collected: 06/25/252000 Lab Status: Final result Specimen: Urine from Indwelling Urethral Catheter Updated: 06/30/25 1001 Urine Culture >100,000 CFU/mL Proteus mirabilis Narrative: Colonization of the urinary tract without infection is common. Treatment is discouraged unless the patient is symptomatic, , or undergoing an invasive urologic procedure. Susceptibility Proteus mirabilis MURRAY Amoxicillin + Clavulanate Susceptible Ampicillin Resistant Ampicillin + Sulbactam Intermediate Cefazolin (Urine) Resistant Cefepime Resistant Ceftazidime Susceptible Ceftriaxone Resistant Cefuroxime axetil Resistant Ciprofloxacin Resistant Gentamicin Susceptible Levofloxacin Resistant Nitrofurantoin Resistant Piperacillin + Tazobactam Susceptible Trimethoprim + Sulfamethoxazole Resistant Blood Culture - Blood, Hand, Right [[id number]] (Abnormal) (Susceptibility) Collected: 06/25/252029 Lab Status: Edited Result - FINAL Specimen: Blood from Hand, Right Updated: 06/29/25 0713 Blood Culture Enterococcus faecium Comment: Infectious disease consultation is highly recommended. Isolated from Anaerobic Bottle Gram Stain Anaerobic Bottle Gram positive cocci in chains Narrative: Less than seven (7) mL's of blood was collected. Insufficient quantity may yield false negative results. requested linezolid & daptomycin 06/28/25 Susceptibility Enterococcus faecium MURRAY Method Not Specified Ampicillin Susceptible Daptomycin Susceptible dose dependent Gentamicin High Level Synergy Susceptible Linezolid Susceptible (C) [1] Vancomycin Susceptible [1] Appended report. These results have been appended to a previously final verified report. Wound Culture - Swab, Foot, Left [[id number]] (Abnormal) (Susceptibility) Collected: 06/25/25 1818 Lab Status: Final result Specimen: Swab from Foot, Left Updated: 06/29/25 0645 Wound Culture Heavy growth (4+) Staphylococcus aureus, MRSA Comment: Methicillin resistant Staphylococcus aureus, Patient may be an isolation risk. Moderate growth (3+) Morganella morganii ssp morganii Moderate growth (3+) Proteus mirabilis ESBL Comment: Consider infectious disease consult. Susceptibility results may not correlate to clinical outcomes. Gram Stain Few (2+) WBCs seen Few (2+) Gram positive cocci in pairs, chains and clusters Few (2+) Gram negative bacilli Susceptibility Staphylococcus aureus, MRSA MURRAY Clindamycin Susceptible Erythromycin Resistant Oxacillin Resistant Rifampin Susceptible Tetracycline Susceptible Trimethoprim + Sulfamethoxazole Resistant Vancomycin Susceptible Susceptibility Morganella morganii ssp morganii MURRAY Method Not Specified Amoxicillin + Clavulanate Resistant Ampicillin Resistant Ampicillin + Sulbactam Resistant Cefazolin (Non Urine) Resistant Cefepime Susceptible Cefotaxime Susceptible Ceftazidime Susceptible Cefuroxime axetil Resistant Ciprofloxacin Resistant Gentamicin Susceptible Levofloxacin Resistant Piperacillin + Tazobactam Susceptible Tetracycline Susceptible Trimethoprim + Sulfamethoxazole Resistant Susceptibility Proteus mirabilis ESBL MURRAY Ciprofloxacin Resistant Ertapenem Susceptible Levofloxacin Resistant Meropenem Susceptible Tetracycline Resistant Trimethoprim + Sulfamethoxazole Resistant Susceptibility Comments Morganella morganii ssp morganii Cefotaxime susceptibility can be used as a surrogate for ceftriaxone susceptibility Proteus mirabilis ESBL With the exception of urinary-sourced infections, aminoglycosides should not be used as monotherapy. Blood Culture ID, PCR - Blood, Hand, Right [[id number]] (Abnormal) Collected: 06/25/252029 Lab Status: Final result Specimen: Blood from Hand, Right Updated: 06/26/252101 BCID, PCR Enterococcus faecium. Zee/B (vancomycin resistance gene) not detected. Identification by BCID2 PCR. BOTTLE TYPE Anaerobic Bottle Narrative: Infectious disease consultation is highly recommended to rule out distant foci of infection. MRSA Screen, PCR (Inpatient) - Swab, Nares [[id number]] (Abnormal) Collected: 06/26/2545 Lab Status: Final result Specimen: Swab from Nares Updated: 06/26/25 0850 MRSA PCR Positive Narrative: The negative predictive value of this diagnostic test is high and should only be used to consider de-escalating anti-MRSA therapy. A positive result may indicate colonization with MRSA and must be correlated clinically. Gastrointestinal Panel, PCR - Stool, Per Rectum [[id number]] (Abnormal) Collected: 06/26/2545 Lab Status: Final result Specimen: Stool from Per Rectum Updated: 06/26/25 0850 Campylobacter Not Detected Plesiomonas shigelloides Not Detected Salmonella Not Detected Vibrio Not Detected Vibrio cholerae Not Detected Yersinia enterocolitica Not Detected Enteroaggregative E. coli (EAEC) Not Detected Enteropathogenic E. coli (EPEC) Not Detected Enterotoxigenic E. coli (ETEC) lt/st Not Detected Shiga-like toxin-producing E. coli (STEC) stx1/stx2 Not Detected Shigella/Enteroinvasive E. coli (EIEC) Not Detected Cryptosporidium Not Detected Cyclospora cayetanensis Not Detected Entamoeba histolytica Not Detected Giardia lamblia Not Detected Adenovirus F40/41 Not Detected Astrovirus Not Detected Norovirus GI/GII Detected Comment: If a positive Norovirus result is inconsistent with clinical presentation, the positive Norovirus result should be confirmed using another method. Rotavirus A Not Detected Sapovirus (I, II, IV or V) Not Detected Clostridioides difficile Toxin - Stool, Per Rectum [[id number]] (Abnormal) Collected: 06/26/2545 Lab Status: Final result Specimen: Stool from Per Rectum Updated: 06/26/25754 Narrative: The following orders were created for panel order Clostridioides difficile Toxin - Stool, Per Rectum. Procedure Abnormality Status --------- ------ Clostridioides difficile...[[id number]] Abnormal Final result Please view results for these tests on the individual orders. Clostridioides difficile Toxin, PCR - Stool, Per Rectum [[id number]] (Abnormal) Collected: 06/26/2545 Lab Status: Final result Specimen: Stool from Per Rectum Updated: 06/26/25754 Toxigenic C. difficile by PCR Detected Narrative: DNA from a toxigenic strain of C.difficile has been detected. No radiology results from the last 24 hrs Results for orders placed during the hospital encounter of 08/31/24 Adult Transthoracic Echo Complete W/ Cont if Necessary Per Protocol 09/12/2024 4:10 PM Interpretation Summary ??? Left ventricular systolic function is normal. Calculated left ventricular EF = 52.5% ??? There is a trivial pericardial effusion. ??? The aortic valve exhibits sclerosis. ??? Mitral annular calcification is present. I have personally reviewed the therapy plans: [x] PT/OT/ ST Therapy Plans Current medications: Scheduled Meds:acetaminophen, 1,000 mg, Oral, Q8H apixaban, 5 mg, Oral, BID vitamin C, 500 mg, Oral, Daily baclofen, 10 mg, Oral, Q12H carvedilol, 3.125 mg, Oral, BID With Meals clopidogrel, 75 mg, Oral, Daily famotidine, 20 mg, Oral, BID AC finasteride, 5 mg, Oral, Daily folic acid, 1 mg, Oral, Daily gabapentin, 600 mg, Oral, Q8H haloperidol lactate, 1 mg, Intramuscular, Once insulin glargine, 40 Units, Subcutaneous, Nightly lamoTRIgine, 100 mg, Oral, Daily lamoTRIgine, 250 mg, Oral, Nightly meropenem, 500 mg, Intravenous, Q6H methenamine, 1 g, Oral, BID With Meals mirtazapine, 15 mg, Oral, Nightly multivitamin with minerals, 1 tablet, Oral, Daily OLANZapine zydis, 5 mg, Oral, Nightly oxyCODONE, 15 mg, Oral, Q6H [Held by provider] sacubitril-valsartan, 1 tablet, Oral, BID sodium chloride, 10 mL, Intravenous, Q12H sodium chloride, 10 mL, Intravenous, Q12H sodium zirconium cyclosilicate, 10 g, Oral, TID vancomycin, 125 mg, Oral, TID Followed by [START ON 07/17/2025] vancomycin, 125 mg, Oral, BID Followed by [START ON 07/25/2025] vancomycin, 125 mg, Oral, Daily Followed by [START ON 08/01/2025] vancomycin, 125 mg, Oral, Weekly vancomycin, 1,250 mg, Intravenous, Q24H Continuous Infusions: PRN Meds:.??? aluminum-magnesium hydroxide-simethicone ??? senna-docusate sodium AND polyethylene glycol AND bisacodyl AND bisacodyl ??? Calcium Replacement - Follow Nurse / BPA Driven Protocol ??? diphenhydrAMINE-zinc acetate ??? influenza vaccine ??? ipratropium-albuterol ??? Magnesium Cardiology Dose Replacement - Follow Nurse / BPA Driven Protocol ??? [DISCONTINUED] Morphine AND naloxone ??? nitroglycerin ??? ondansetron ??? oxyCODONE ??? Phosphorus Replacement - Follow Nurse / BPA Driven Protocol ??? Potassium Replacement - Follow Nurse / BPA Driven Protocol ??? Insert Peripheral IV AND sodium chloride ??? sodium chloride ??? sodium chloride ??? sodium chloride ??? sodium chloride Assessment & Plan Assessment & Plan Active Hospital Problems Diagnosis POA ??? Gastroenteritis due to norovirus [A08.11] Yes ??? Acute UTI (urinary tract infection) [N39.0] Yes ??? Diarrhea of presumed infectious origin [R19.7] Yes ??? Acute on chronic blood loss anemia [D62] Yes ??? BPH without obstruction/lower urinary tract symptoms [N40.0] Yes ??? GERD without esophagitis [K21.9] Yes ??? Bilateral inguinal hernia [K40.20] Yes ??? Cellulitis [L03.90] Yes ??? Type 2 diabetes mellitus, with long-term current use of insulin [E11.9, Z79.4] Not Applicable ??? Wound infection [T14.8XXA, L08.9] Unknown ??? PAD (peripheral artery disease) [I73.9] Yes ??? Coronary artery disease involving [place] coronary artery of [place] heart without angina pectoris [I25.10] Yes ??? Seizure disorder [G40.909] Yes ??? Primary hypertension [I10] Yes Resolved Hospital Problems No resolved problems to display. Brief Hospital Course to date: Trung Pool is a 70 y.o. male with a past medical history of coronary artery disease, peripheral artery disease, type 2 diabetes mellitus (on insulin), right above-knee amputation, and seizure disorder, who was admitted with hematuria, left foot stump drainage, fatigue, and diarrhea. Workup notable for norovirus and Enterococcus bacteremia. Urology, Infectious disease and vascular surgery consulted while inpatient. Planning for left lower extremity debridement and possible wound VAC placement with vascular surgery. This patient's problems and plans were partially entered by my partner and updated as appropriate by me 07/13/25. Severe PAD History of right BKA, LLE revascularization and toe amputation Cellulitis and Left Lower Extremity Wound MRSA + Enterococcus bacteremia MRI L foot showing edema in the distal first and second metatarsal diaphyses at the resection margins, osteomyelitis is not excluded, diffuse soft tissue edema and skin thickening about the remainingfoot. No definite abscess noted. Nondisplaced intra-articular fracture of the distal tibia with associated marrow edema. Follow-up CT angio left lower extremity revealing with moderate focal narrowing at the junction of the SFA and the popliteal artery. 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 Patency of the anterior and posterior tibial arteries difficult to assess due to significant venous contamination and heavy calcification. Left lower extremity arterial dopplers abnormal waveforms suggest inflow disease. Moderate 60% stenosis in the left SFA, the left CHIP appears to be occluded filling vis collaterals retrograde Blood cultures positive for Enterococcus faecium Infectious disease consulted, continue IV merrem, IV/PO vancomycin Vascular surgery consulted in the evaluation follows with Dr. Marcano; recommending more debridement of LLE with wound vac placement; on 07/03/2025 Resume Plavix and DVT ppx, Eliquis Patient has been adamant about not having any more amputation Palliative care on board to assist with pain management Patient is fearful regarding amputation, does not want to go to a usp, states that if we can avoid sending him to usp he may be agreeable to amputation. He is agreeable for short course of rehab/SNF after amputation however he states he does not want to but if ultimately he will end up in usp then he just wants to go home with hospice. Asked PT/OT and case management to discuss again with patient regarding his options if he chose amputation. PT states patient was conflicted and needs more time to consider. Encouraged to continue all treatment at this time until official decision to go home with Hospice is made, as patient has refused medications and labs at times Hyperkalemia --potassium of 6.2 07/11, given Lokelma and IV Dextrose/ Insulin --repeat labs improved to 5.8 and given one more does of Lokelma --modified diet to low potassium diet --potassium of 6.1 on 07/12; given more IV Dex/Insulin; discussed with Dr Alcantara, will now hold Entresto, give Lokelma TID and one time dose IV lasix to treat hyperkalemia. Repeat BMP q 8 hrs x 2 occur and monitor closely. Additionally given IV mag and calcium gluconate Acute UTI and hematuria History of BPH CT imaging revealed moderate bladder distention, small amount of gas in the bladder, and mildly decreased bladder wall thickening compared to prior exam. H&H stable, resumed eliquis 07/07 Urology consultation, continue de los santos and finasteride. Plan to follow up outpatient for lobsterman bladder management Norovirus GI PCR panel with norovirus, C. difficile toxin is positive but antigen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 Bermudez MD 1 tablet at 07/01/25 0830 naloxone (NARCAN) injection 0.4 mg 0.4 mg Intravenous Q5 Min PRN Amanda Bermudez MD nitroglycerin (NITROSTAT) SL tablet 0.4 mg 0.4 mg Sublingual Q5 Min PRN Amanda Bermudez MD ondansetron (ZOFRAN) injection 4 mg 4 mg Intravenous Q6H PRN Amanda Bermudez MD 4 mg at 06/29/25 1646 oxyCODONE-acetaminophen (PERCOCET) 10-325 MG per tablet 1 tablet 1 tablet Oral Q6H PRN Kris Boston DO 1 tablet at 07/02/25 0125 Pharmacy to dose vancomycin Not Applicable Continuous PRN Duglas Andres MD Phosphorus Replacement - Follow Nurse / BPA Driven Protocol Not Applicable PRN Amanda Bermudez MD Potassium Replacement - Follow Nurse / BPA Driven Protocol Not Applicable PRN Amanda Bermudez MD sacubitril-valsartan (ENTRESTO) 24-26 MG tablet 1 tablet 1 tablet Oral BID Amanda Bermudez MD 1 tablet at 07/01/25 2144 sodium chloride 0.9 % flush 10 mL 10 mL Intravenous PRN Ally Jeffers V, DIABETES NURSE sodium chloride 0.9 % flush 10 mL 10 mL Intravenous Q12H Amanda Bermudez MD 10 mL at 07/01/25 0832 sodium chloride 0.9 % flush 10 mL 10 mL Intravenous PRN Amanda Bermudez MD sodium chloride 0.9 % flush 10 mL 10 mL Intravenous Q12H Duglas Andres MD 10 mL at 07/01/25 2145 sodium chloride 0.9 % flush 10 mL 10 mL Intravenous PRN Duglas Andres MD sodium chloride 0.9 % flush 20 mL 20 mL Intravenous PRN Duglas Andres MD sodium chloride 0.9 % infusion 40 mL 40 mL Intravenous PRN Duglas Andres MD vancomycin (VANCOCIN) 1,000 mg in sodium chloride 0.9 % 250 mL IVPB-VTB 1,000 mg Intravenous Q12H SiobhanOsmany, RPH 250 mL/hr at 07/01/252142 1,000 mg at 07/01/252142 vancomycin (VANCOCIN) capsule 125 mg 125 mg Oral 4x Daily Duglas Andres MD 125 mg at Followed by [START ON 07/10/2025] vancomycin (VANCOCIN) capsule 125 mg 125 mg Oral TID Duglas Andres MD Followed by [START ON 07/17/2025] vancomycin (VANCOCIN) capsule 125 mg 125 mg Oral BID Duglas Andres MD Followed by [START ON 07/25/2025] vancomycin (VANCOCIN) capsule 125 mg 125 mg Oral Daily Duglas Andres MD Followed by [START ON 08/01/2025] vancomycin (VANCOCIN) capsule 125 mg 125 mg Oral Weekly Duglas Andres MD * Chinyere Hensley, DIABETES NURSE - 07/12/2025 8:50 AM EDT Images from the original note were not included. [facility] Medicine Services PROGRESS NOTE Patient Name: Trung Pool : [id number] Date of Admission: 06/25/2025 Primary Care Physician: Gustavo Mehta MD Subjective Subjective CC: LLE wound HPI: Up on side of bed, NAD. Pain controlled, hurts a lot with dressing changes. Discussed plan for medications today in order to decrease his potassium, patient understands. No additional questions. Objective Objective Vital Signs: Temp: [97.5 ??F (36.4 ??C)-97.9 ??F (36.6 ??C)] 97.9 ??F (36.6 ??C) Heart Rate: [59-96] 82 Resp: [18] 18 BP: (128-141)/(51-70) 141/70 Physical Exam: Constitutional: No acute distress, awake, alert, ill appearing HENT: NCAT, mucous membranes moist Respiratory: Clear to auscultation bilaterally, respiratory effort normal room air Cardiovascular: RRR, no murmurs, rubs, or gallops Gastrointestinal: Positive bowel sounds, soft, nontender, nondistended Musculoskeletal: right BKA, left LLE erythema with wound vac, left foot toes amputated, compressionwrap to LLE Psychiatric: Appropriate affect, cooperative Neurologic: Oriented x 3, strength symmetric in all extremities, Cranial Nerves grossly intact to confrontation, speech clear Skin: No rashes, pale de los santos to BSD with clear yellow urine Results Reviewed: LAB RESULTS: Lab 07/12/25 0454 07/11/25 0423 07/09/25 0712 07/08/25 0542 07/07/25 0343 WBC 8.43 8.79 9.80 7.37 7.72 HEMOGLOBIN 10.1* 9.5* 9.5* 9.7* 9.3* HEMATOCRIT 33.1* 31.1* 30.7* 35.5* 30.9* PLATELETS 282 255 278 281 275 MCV 79.8 78.5* 77.9* 84.7 79.0 Lab 07/12/25 0454 07/11/25 1110 07/11/25 0423 07/09/25 0712 07/08/25 1418 07/08/25 0542 07/07/25 0343 SODIUM 136 -- 135* 136 136 131* 134* POTASSIUM 6.1* 5.8* 6.2* 5.8* 5.9* 6.0* 5.2 CHLORIDE 105 -- 104 106 104 104 101 CO2 19.7* -- 22.0 21.8* 21.1* 17.4* 22.2 ANION GAP 11.3 -- 9.0 8.2 10.9 9.6 10.8 BUN 32.6* -- 26.6* 21.6 18.7 19.5 18.3 CREATININE 1.09 -- 1.09 1.05 0.91 0.94 1.02 EGFR 72.6 -- 72.6 75.9 90.1 86.7 78.6 GLUCOSE 107* -- 133* 53* 89 120* 171* CALCIUM 8.9 -- 8.7 8.7 8.8 8.5* 8.6 MAGNESIUM 2.1 -- 2.1 2.1 -- 2.2 2.0 Brief Urine Lab Results (Last result in the past 365 days) Color Clarity Blood Leuk Est Nitrite Protein CREAT Urine HCG 06/25/252000 Yellow Turbid Large (3+) Large (3+) Positive Trace Brief Urine Lab Results (Last result in the past 365 days) Color Clarity Blood Leuk Est Nitrite Protein CREAT Urine HCG 06/25/252000 Yellow Turbid Large (3+) Large (3+) Positive Trace Brief Urine Lab Results (Last result in the past 365 days) Color Clarity Blood Leuk Est Nitrite Protein CREAT Urine HCG 06/25/252000 Yellow Turbid Large (3+) Large (3+) Positive Trace Microbiology Results Abnormal Procedure Component Value - Date/Time Urine Culture - Urine, Indwelling Urethral Catheter [[id number]] (Abnormal) (Susceptibility) Collected: 06/25/252000 Lab Status: Final result Specimen: Urine from Indwelling Urethral Catheter Updated: 06/30/25 1001 Urine Culture >100,000 CFU/mL Proteus mirabilis Narrative: Colonization of the urinary tract without infection is common. Treatment is discouraged unless the patient is symptomatic, , or undergoing an invasive urologic procedure. Susceptibility Proteus mirabilis MURRAY Amoxicillin + Clavulanate Susceptible Ampicillin Resistant Ampicillin + Sulbactam Intermediate Cefazolin (Urine) Resistant Cefepime Resistant Ceftazidime Susceptible Ceftriaxone Resistant Cefuroxime axetil Resistant Ciprofloxacin Resistant Gentamicin Susceptible Levofloxacin Resistant Nitrofurantoin Resistant Piperacillin + Tazobactam Susceptible Trimethoprim + Sulfamethoxazole Resistant Blood Culture - Blood, Hand, Right [[id number]] (Abnormal) (Susceptibility) Collected: 06/25/252029 Lab Status: Edited Result - FINAL Specimen: Blood from Hand, Right Updated: 06/29/25 0713 Blood Culture Enterococcus faecium Comment: Infectious disease consultation is highly recommended. Isolated from Anaerobic Bottle Gram Stain Anaerobic Bottle Gram positive cocci in chains Narrative: Less than seven (7) mL's of blood was collected. Insufficient quantity may yield false negative results. requested linezolid & daptomycin 06/28/25 Susceptibility Enterococcus faecium MURRAY Method Not Specified Ampicillin Susceptible Daptomycin Susceptible dose dependent Gentamicin High Level Synergy Susceptible Linezolid Susceptible (C) [1] Vancomycin Susceptible [1] Appended report. These results have been appended to a previously final verified report. Wound Culture - Swab, Foot, Left [[id number]] (Abnormal) (Susceptibility) Collected: 06/25/25 1818 Lab Status: Final result Specimen: Swab from Foot, Left Updated: 06/29/25 0645 Wound Culture Heavy growth (4+) Staphylococcus aureus, MRSA Comment: Methicillin resistant Staphylococcus aureus, Patient may be an isolation risk. Moderate growth (3+) Morganella morganii ssp morganii Moderate growth (3+) Proteus mirabilis ESBL Comment: Consider infectious disease consult. Susceptibility results may not correlate to clinical outcomes. Gram Stain Few (2+) WBCs seen Few (2+) Gram positive cocci in pairs, chains and clusters Few (2+) Gram negative bacilli Susceptibility Staphylococcus aureus, MRSA MURRAY Clindamycin Susceptible Erythromycin Resistant Oxacillin Resistant Rifampin Susceptible Tetracycline Susceptible Trimethoprim + Sulfamethoxazole Resistant Vancomycin Susceptible Susceptibility Morganella morganii ssp morganii MURRAY Method Not Specified Amoxicillin + Clavulanate Resistant Ampicillin Resistant Ampicillin + Sulbactam Resistant Cefazolin (Non Urine) Resistant Cefepime Susceptible Cefotaxime Susceptible Ceftazidime Susceptible Cefuroxime axetil Resistant Ciprofloxacin Resistant Gentamicin Susceptible Levofloxacin Resistant Piperacillin + Tazobactam Susceptible Tetracycline Susceptible Trimethoprim + Sulfamethoxazole Resistant Susceptibility Proteus mirabilis ESBL MURRAY Ciprofloxacin Resistant Ertapenem Susceptible Levofloxacin Resistant Meropenem Susceptible Tetracycline Resistant Trimethoprim + Sulfamethoxazole Resistant Susceptibility Comments Morganella morganii ssp morganii Cefotaxime susceptibility can be used as a surrogate for ceftriaxone susceptibility Proteus mirabilis ESBL With the exception of urinary-sourced infections, aminoglycosides should not be used as monotherapy. Blood Culture ID, PCR - Blood, Hand, Right [[id number]] (Abnormal) Collected: 06/25/25 2030 Lab Status: Final result Specimen: Blood from Hand, Right Updated: 06/26/252101 BCID, PCR Enterococcus faecium. Zee/B (vancomycin resistance gene) not detected. Identification by BCID2 PCR. BOTTLE TYPE Anaerobic Bottle Narrative: Infectious disease consultation is highly recommended to rule out distant foci of infection. MRSA Screen, PCR (Inpatient) - Swab, Nares [[id number]] (Abnormal) Collected: 06/26/2545 Lab Status: Final result Specimen: Swab from Nares Updated: 06/26/25849 MRSA PCR Positive Narrative: The negative predictive value of this diagnostic test is high and should only be used to consider de-escalating anti-MRSA therapy. A positive result may indicate colonization with MRSA and must be correlated clinically. Gastrointestinal Panel, PCR - Stool, Per Rectum [[id number]] (Abnormal) Collected: 06/26/2545 Lab Status: Final result Specimen: Stool from Per Rectum Updated: 06/26/25849 Campylobacter Not Detected Plesiomonas shigelloides Not Detected Salmonella Not Detected Vibrio Not Detected Vibrio cholerae Not Detected Yersinia enterocolitica Not Detected Enteroaggregative E. coli (EAEC) Not Detected Enteropathogenic E. coli (EPEC) Not Detected Enterotoxigenic E. coli (ETEC) lt/st Not Detected Shiga-like toxin-producing E. coli (STEC) stx1/stx2 Not Detected Shigella/Enteroinvasive E. coli (EIEC) Not Detected Cryptosporidium Not Detected Cyclospora cayetanensis Not Detected Entamoeba histolytica Not Detected Giardia lamblia Not Detected Adenovirus F40/41 Not Detected Astrovirus Not Detected Norovirus GI/GII Detected Comment: If a positive Norovirus result is inconsistent with clinical presentation, the positive Norovirus result should be confirmed using another method. Rotavirus A Not Detected Sapovirus (I, II, IV or V) Not Detected Clostridioides difficile Toxin - Stool, Per Rectum [[id number]] (Abnormal) Collected: 06/26/2545 Lab Status: Final result Specimen: Stool from Per Rectum Updated: 06/26/25 0755 Narrative: The following orders were created for panel order Clostridioides difficile Toxin - Stool, Per Rectum. Procedure Abnormality Status --------- ------ Clostridioides difficile...[[id number]] Abnormal Final result Please view results for these tests on the individual orders. Clostridioides difficile Toxin, PCR - Stool, Per Rectum [[id number]] (Abnormal) Collected: 06/26/2545 Lab Status: Final result Specimen: Stool from Per Rectum Updated: 06/26/25754 Toxigenic C. difficile by PCR Detected Narrative: DNA from a toxigenic strain of C.difficile has been detected. Microbiology Results Abnormal Procedure Component Value - Date/Time Urine Culture - Urine, Indwelling Urethral Catheter [[id number]] (Abnormal) (Susceptibility) Collected: 06/25/252000 Lab Status: Final result Specimen: Urine from Indwelling Urethral Catheter Updated: 06/30/25 1001 Urine Culture >100,000 CFU/mL Proteus mirabilis Narrative: Colonization of the urinary tract without infection is common. Treatment is discouraged unless the patient is symptomatic, , or undergoing an invasive urologic procedure. Susceptibility Proteus mirabilis MURRAY Amoxicillin + Clavulanate Susceptible Ampicillin Resistant Ampicillin + Sulbactam Intermediate Cefazolin (Urine) Resistant Cefepime Resistant Ceftazidime Susceptible Ceftriaxone Resistant Cefuroxime axetil Resistant Ciprofloxacin Resistant Gentamicin Susceptible Levofloxacin Resistant Nitrofurantoin Resistant Piperacillin + Tazobactam Susceptible Trimethoprim + Sulfamethoxazole Resistant Blood Culture - Blood, Hand, Right [[id number]] (Abnormal) (Susceptibility) Collected: 06/25/252029 Lab Status: Edited Result - FINAL Specimen: Blood from Hand, Right Updated: 06/29/25 0713 Blood Culture Enterococcus faecium Comment: Infectious disease consultation is highly recommended. Isolated from Anaerobic Bottle Gram Stain Anaerobic Bottle Gram positive cocci in chains Narrative: Less than seven (7) mL's of blood was collected. Insufficient quantity may yield false negative results. requested linezolid & daptomycin 06/28/25 Susceptibility Enterococcus faecium MURRAY Method Not Specified Ampicillin Susceptible Daptomycin Susceptible dose dependent Gentamicin High Level Synergy Susceptible Linezolid Susceptible (C) [1] Vancomycin Susceptible [1] Appended report. These results have been appended to a previously final verified report. Wound Culture - Swab, Foot, Left [[id number]] (Abnormal) (Susceptibility) Collected: 06/25/25 1818 Lab Status: Final result Specimen: Swab from Foot, Left Updated: 06/29/25 0645 Wound Culture Heavy growth (4+) Staphylococcus aureus, MRSA Comment: Methicillin resistant Staphylococcus aureus, Patient may be an isolation risk. Moderate growth (3+) Morganella morganii ssp morganii Moderate growth (3+) Proteus mirabilis ESBL Comment: Consider infectious disease consult. Susceptibility results may not correlate to clinical outcomes. Gram Stain Few (2+) WBCs seen Few (2+) Gram positive cocci in pairs, chains and clusters Few (2+) Gram negative bacilli Susceptibility Staphylococcus aureus, MRSA MURRAY Clindamycin Susceptible Erythromycin Resistant Oxacillin Resistant Rifampin Susceptible Tetracycline Susceptible Trimethoprim + Sulfamethoxazole Resistant Vancomycin Susceptible Susceptibility Morganella morganii ssp morganii MURRAY Method Not Specified Amoxicillin + Clavulanate Resistant Ampicillin Resistant Ampicillin + Sulbactam Resistant Cefazolin (Non Urine) Resistant Cefepime Susceptible Cefotaxime Susceptible Ceftazidime Susceptible Cefuroxime axetil Resistant Ciprofloxacin Resistant Gentamicin Susceptible Levofloxacin Resistant Piperacillin + Tazobactam Susceptible Tetracycline Susceptible Trimethoprim + Sulfamethoxazole Resistant Susceptibility Proteus mirabilis ESBL MURRAY Ciprofloxacin Resistant Ertapenem Susceptible Levofloxacin Resistant Meropenem Susceptible Tetracycline Resistant Trimethoprim + Sulfamethoxazole Resistant Susceptibility Comments Morganella morganii ssp morganii Cefotaxime susceptibility can be used as a surrogate for ceftriaxone susceptibility Proteus mirabilis ESBL With the exception of urinary-sourced infections, aminoglycosides should not be used as monotherapy. Blood Culture ID, PCR - Blood, Hand, Right [[id number]] (Abnormal) Collected: 06/25/252029 Lab Status: Final result Specimen: Blood from Hand, Right Updated: 06/26/252101 BCID, PCR Enterococcus faecium. Zee/B (vancomycin resistance gene) not detected. Identification by BCID2 PCR. BOTTLE TYPE Anaerobic Bottle Narrative: Infectious disease consultation is highly recommended to rule out distant foci of infection. MRSA Screen, PCR (Inpatient) - Swab, Nares [[id number]] (Abnormal) Collected: 06/26/2545 Lab Status: Final result Specimen: Swab from Nares Updated: 06/26/25 0850 MRSA PCR Positive Narrative: The negative predictive value of this diagnostic test is high and should only be used to consider de-escalating anti-MRSA therapy. A positive result may indicate colonization with MRSA and must be correlated clinically. Gastrointestinal Panel, PCR - Stool, Per Rectum [[id number]] (Abnormal) Collected: 06/26/2545 Lab Status: Final result Specimen: Stool from Per Rectum Updated: 06/26/25 0850 Campylobacter Not Detected Plesiomonas shigelloides Not Detected Salmonella Not Detected Vibrio Not Detected Vibrio cholerae Not Detected Yersinia enterocolitica Not Detected Enteroaggregative E. coli (EAEC) Not Detected Enteropathogenic E. coli (EPEC) Not Detected Enterotoxigenic E. coli (ETEC) lt/st Not Detected Shiga-like toxin-producing E. coli (STEC) stx1/stx2 Not Detected Shigella/Enteroinvasive E. coli (EIEC) Not Detected Cryptosporidium Not Detected Cyclospora cayetanensis Not Detected Entamoeba histolytica Not Detected Giardia lamblia Not Detected Adenovirus F40/41 Not Detected Astrovirus Not Detected Norovirus GI/GII Detected Comment: If a positive Norovirus result is inconsistent with clinical presentation, the positive Norovirus result should be confirmed using another method. Rotavirus A Not Detected Sapovirus (I, II, IV or V) Not Detected Clostridioides difficile Toxin - Stool, Per Rectum [[id number]] (Abnormal) Collected: 06/26/2545 Lab Status: Final result Specimen: Stool from Per Rectum Updated: 06/26/25754 Narrative: The following orders were created for panel order Clostridioides difficile Toxin - Stool, Per Rectum. Procedure Abnormality Status --------- ------ Clostridioides difficile...[[id number]] Abnormal Final result Please view results for these tests on the individual orders. Clostridioides difficile Toxin, PCR - Stool, Per Rectum [[id number]] (Abnormal) Collected: 06/26/2545 Lab Status: Final result Specimen: Stool from Per Rectum Updated: 06/26/25754 Toxigenic C. difficile by PCR Detected Narrative: DNA from a toxigenic strain of C.difficile has been detected. Microbiology Results Abnormal Procedure Component Value - Date/Time Urine Culture - Urine, Indwelling Urethral Catheter [[id number]] (Abnormal) (Susceptibility) Collected: 06/25/252000 Lab Status: Final result Specimen: Urine from Indwelling Urethral Catheter Updated: 06/30/25 1001 Urine Culture >100,000 CFU/mL Proteus mirabilis Narrative: Colonization of the urinary tract without infection is common. Treatment is discouraged unless the patient is symptomatic, , or undergoing an invasive urologic procedure. Susceptibility Proteus mirabilis MURRAY Amoxicillin + Clavulanate Susceptible Ampicillin Resistant Ampicillin + Sulbactam Intermediate Cefazolin (Urine) Resistant Cefepime Resistant Ceftazidime Susceptible Ceftriaxone Resistant Cefuroxime axetil Resistant Ciprofloxacin Resistant Gentamicin Susceptible Levofloxacin Resistant Nitrofurantoin Resistant Piperacillin + Tazobactam Susceptible Trimethoprim + Sulfamethoxazole Resistant Blood Culture - Blood, Hand, Right [[id number]] (Abnormal) (Susceptibility) Collected: 06/25/252029 Lab Status: Edited Result - FINAL Specimen: Blood from Hand, Right Updated: 06/29/25 0713 Blood Culture Enterococcus faecium Comment: Infectious disease consultation is highly recommended. Isolated from Anaerobic Bottle Gram Stain Anaerobic Bottle Gram positive cocci in chains Narrative: Less than seven (7) mL's of blood was collected. Insufficient quantity may yield false negative results. requested linezolid & daptomycin 06/28/25 Susceptibility Enterococcus faecium MURRAY Method Not Specified Ampicillin Susceptible Daptomycin Susceptible dose dependent Gentamicin High Level Synergy Susceptible Linezolid Susceptible (C) [1] Vancomycin Susceptible [1] Appended report. These results have been appended to a previously final verified report. Wound Culture - Swab, Foot, Left [[id number]] (Abnormal) (Susceptibility) Collected: 06/25/25 181 Lab Status: Final result Specimen: Swab from Foot, Left Updated: 06/29/25 0645 Wound Culture Heavy growth (4+) Staphylococcus aureus, MRSA Comment: Methicillin resistant Staphylococcus aureus, Patient may be an isolation risk. Moderate growth (3+) Morganella morganii ssp morganii Moderate growth (3+) Proteus mirabilis ESBL Comment: Consider infectious disease consult. Susceptibility results may not correlate to clinical outcomes. Gram Stain Few (2+) WBCs seen Few (2+) Gram positive cocci in pairs, chains and clusters Few (2+) Gram negative bacilli Susceptibility Staphylococcus aureus, MRSA MURRAY Clindamycin Susceptible Erythromycin Resistant Oxacillin Resistant Rifampin Susceptible Tetracycline Susceptible Trimethoprim + Sulfamethoxazole Resistant Vancomycin Susceptible Susceptibility Morganella morganii ssp morganii MURRAY Method Not Specified Amoxicillin + Clavulanate Resistant Ampicillin Resistant Ampicillin + Sulbactam Resistant Cefazolin (Non Urine) Resistant Cefepime Susceptible Cefotaxime Susceptible Ceftazidime Susceptible Cefuroxime axetil Resistant Ciprofloxacin Resistant Gentamicin Susceptible Levofloxacin Resistant Piperacillin + Tazobactam Susceptible Tetracycline Susceptible Trimethoprim + Sulfamethoxazole Resistant Susceptibility Proteus mirabilis ESBL MURRAY Ciprofloxacin Resistant Ertapenem Susceptible Levofloxacin Resistant Meropenem Susceptible Tetracycline Resistant Trimethoprim + Sulfamethoxazole Resistant Susceptibility Comments Morganella morganii ssp morganii Cefotaxime susceptibility can be used as a surrogate for ceftriaxone susceptibility Proteus mirabilis ESBL With the exception of urinary-sourced infections, aminoglycosides should not be used as monotherapy. Blood Culture ID, PCR - Blood, Hand, Right [[id number]] (Abnormal) Collected: 06/25/252029 Lab Status: Final result Specimen: Blood from Hand, Right Updated: 06/26/252101 BCID, PCR Enterococcus faecium. Zee/B (vancomycin resistance gene) not detected. Identification by BCID2 PCR. BOTTLE TYPE Anaerobic Bottle Narrative: Infectious disease consultation is highly recommended to rule out distant foci of infection. MRSA Screen, PCR (Inpatient) - Swab, Nares [[id number]] (Abnormal) Collected: 06/26/2545 Lab Status: Final result Specimen: Swab from Nares Updated: 06/26/2550 MRSA PCR Positive Narrative: The negative predictive value of this diagnostic test is high and should only be used to consider de-escalating anti-MRSA therapy. A positive result may indicate colonization with MRSA and must be correlated clinically. Gastrointestinal Panel, PCR - Stool, Per Rectum [[id number]] (Abnormal) Collected: 06/26/2545 Lab Status: Final result Specimen: Stool from Per Rectum Updated: 06/26/25 0850 Campylobacter Not Detected Plesiomonas shigelloides Not Detected Salmonella Not Detected Vibrio Not Detected Vibrio cholerae Not Detected Yersinia enterocolitica Not Detected Enteroaggregative E. coli (EAEC) Not Detected Enteropathogenic E. coli (EPEC) Not Detected Enterotoxigenic E. coli (ETEC) lt/st Not Detected Shiga-like toxin-producing E. coli (STEC) stx1/stx2 Not Detected Shigella/Enteroinvasive E. coli (EIEC) Not Detected Cryptosporidium Not Detected Cyclospora cayetanensis Not Detected Entamoeba histolytica Not Detected Giardia lamblia Not Detected Adenovirus F40/41 Not Detected Astrovirus Not Detected Norovirus GI/GII Detected Comment: If a positive Norovirus result is inconsistent with clinical presentation, the positive Norovirus result should be confirmed using another method. Rotavirus A Not Detected Sapovirus (I, II, IV or V) Not Detected Clostridioides difficile Toxin - Stool, Per Rectum [[id number]] (Abnormal) Collected: 06/26/2545 Lab Status: Final result Specimen: Stool from Per Rectum Updated: 06/26/25 0755 Narrative: The following orders were created for panel order Clostridioides difficile Toxin - Stool, Per Rectum. Procedure Abnormality Status --------- ------ Clostridioides difficile...[[id number]] Abnormal Final result Please view results for these tests on the individual orders. Clostridioides difficile Toxin, PCR - Stool, Per Rectum [[id number]] (Abnormal) Collected: 06/26/25 0046 Lab Status: Final result Specimen: Stool from Per Rectum Updated: 06/26/25 0755 Toxigenic C. difficile by PCR Detected Narrative: DNA from a toxigenic strain of C.difficile has been detected. Microbiology Results Abnormal Procedure Component Value - Date/Time Urine Culture - Urine, Indwelling Urethral Catheter [[id number]] (Abnormal) (Susceptibility) Collected: 06/25/252000 Lab Status: Final result Specimen: Urine from Indwelling Urethral Catheter Updated: 06/30/25 1001 Urine Culture >100,000 CFU/mL Proteus mirabilis Narrative: Colonization of the urinary tract without infection is common. Treatment is discouraged unless the patient is symptomatic, , or undergoing an invasive urologic procedure. Susceptibility Proteus mirabilis MURRAY Amoxicillin + Clavulanate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 Mccann RPH Not Applicable Daily 07/09/25 0900 07/11/25 1101 07/03/25 0814 vancomycin (VANCOCIN) 1,000 mg in sodium chloride 0.9 % 250 mL IVPB-VTB Status: Discontinued Ordering Provider: Vaughn Hollingsworth, 1,000 mg 250 mL/hr over 60 Minutes Intravenous Every 12 Hours 07/03/25 0900 07/09/25 0811 06/28/25 0724 vancomycin (VANCOCIN) 1,000 mg in sodium chloride 0.9 % 250 mL IVPB-VTB Status: Discontinued Ordering Provider: Duglas Andres MD 1,000 mg 250 mL/hr over 60 Minutes Intravenous Every 12 Hours 06/28/25 0900 07/03/25 0814 06/27/25 0812 Vancomycin HCl 1,250 mg in sodium chloride 0.9 % 250 mL VTB Status: Discontinued Ordering Provider: Osmany Mccann, RPH 1,250 mg 200 mL/hr over 75 Minutes Intravenous Every 12 Hours 06/27/25 2100 06/27/25 0813 06/27/25 0813 Vancomycin HCl 1,250 mg in sodium chloride 0.9 % 250 mL VTB Status: Discontinued Ordering Provider: Osmany Mccann, RPH 1,250 mg 200 mL/hr over 75 Minutes Intravenous Every 12 Hours 06/27/25 2100 06/28/25 0724 06/27/25 0856 vancomycin 2500 mg/500 mL 0.9% NS IVPB ([facility]) Ordering Provider: Osmany Mccann, RPH 2,500 mg over 150 Minutes Intravenous Once 06/27/25 0945 06/27/25 1150 06/27/25 0808 vancomycin 2250 mg/500 mL 0.9% NS IVPB (S) Status: Discontinued Ordering Provider: Osmany Mccann, RPH 2,250 mg over 135 Minutes Intravenous Once 06/27/25 0900 06/27/25 0856 06/27/25 0739 Pharmacy to dose vancomycin Ordering Provider: Vaughn Hollingsworth, DO Not Applicable Continuous PRN 06/27/25 0739 07/11/25 0738 06/25/25 2312 DAPTOmycin (CUBICIN) 550 mg in sodium chloride 0.9 % 50 mL IVPB Status: Discontinued Ordering Provider: Amanda Bermudez MD 6 mg/kg ?? 94.6 kg (Adjusted) 100 mL/hr over 30 Minutes Intravenous Every 24 Hours 06/26/25 2100 06/27/25 0739 06/26/25 0847 meropenem (MERREM) 500 mg in sodium chloride 0.9 % 100 mL MBP Ordering Provider: Duglas Andres MD 500 mg over 3 Hours Intravenous Every 6 Hours 06/26/25 1600 07/16/25 1559 06/25/25 2303 piperacillin-tazobactam (ZOSYN) 4.5 g IVPB in 100 mL NS MBP (CD) Status: Discontinued Ordering Provider: Amanda Bermudez MD 4.5 g over 4 Hours Intravenous Every 8 Hours 06/26/25 1200 06/26/25 0846 06/26/25 0831 vancomycin (VANCOCIN) capsule 125 mg Ordering Provider: Vaughn Hollingsworth DO Placed in Followed by Linked Group 125 mg Oral 4 Times Daily 06/26/25 1200 07/10/25 1159 06/26/25 0847 meropenem (MERREM) 500 mg in sodium chloride 0.9 % 100 mL MBP Ordering Provider: Duglas Andres MD 500 mg over 30 Minutes Intravenous Once 06/26/25 0945 06/26/25 1047 06/26/25 0833 micafungin sodium (MYCAMINE) 100 mg in sodium chloride 0.9 % 100 mL MBP Ordering Provider: Duglas Andres MD 100 mg Intravenous Once 06/26/25 0930 06/26/25 0850 06/26/25 0113 methenamine (HIPREX) tablet 1 g Ordering Provider: Vaughn Hollingsworth DO 1 g Oral 2 Times Daily With Meals 06/26/25 0800 06/25/25 2303 piperacillin-tazobactam (ZOSYN) 3.375 g IVPB in 100 mL NS MBP (CD) Status: Discontinued Ordering Provider: Amanda Bermudez MD 3.375 g over 30 Minutes Intravenous Once 06/26/25 0600 06/25/25 2312 06/25/25 2312 piperacillin-tazobactam (ZOSYN) 4.5 g IVPB in 100 mL NS MBP (CD) Ordering Provider: Amanda Bermudez MD 4.5 g over 30 Minutes Intravenous Once 06/26/25 0600 06/26/25 0600 06/25/252111 DAPTOmycin (CUBICIN) 550 mg in sodium chloride 0.9 % 50 mL IVPB Ordering Provider: Ally Jeffers APRN 6 mg/kg ?? 94.6 kg (Adjusted) 100 mL/hr over 30 Minutes Intravenous Once 06/25/25212706/25/25230606/25/252111 meropenem (MERREM) 1,000 mg in sodium chloride 0.9 % 100 mL MBP Ordering Provider: Ally Jeffers APRN 1,000 mg over 30 Minutes Intravenous Once 06/25/25212706/25/252236 Review of Systems 07/12/25 per nursing also Constitutional-- No Fever, chills or sweats. Appetite good, and no malaise. No fatigue. Heent-- No new vision, hearing or throat complaints. No epistaxis or oral sores. Denies odynophagiaor dysphagia. No flashers, floaters or eye pain. No odynophagia or dysphagia. No headache, photophobia or neck stiffness. CV-- No chest pain, palpitation or syncope Resp-- No SOB/cough/Hemoptysis GI- No hematochezia, melena, or hematemesis. Denies jaundice or chronic liver disease. -- chronic De Los Santos catheter, denies flank pain Lymph- no swollen lymph nodes in neck/axilla or groin. Heme- No active bruising or bleeding; no Hx of DVT or PE. MS-- no swelling or pain in the bones or joints of arms/legs. No new back pain. Neuro-- No acute focal weakness or numbness in the arms or legs. Chronically debilitated Full 12 point review of systems reviewed and negative otherwise for acute complaints, except for above Physical Exam: Vital Signs BP 132/51 (BP Location: Left arm, Patient Position: Sitting) Pulse 59 Temp 97.5 ??F (36.4 ??C) (Oral) Resp 18 Ht 182.9 cm (72 ) Wt 116 kg (256 lb 9.6 oz) SpO2 99% BMI 34.80 kg/m?? GENERAL: sleepy HEENT: Normocephalic, atraumatic. No conjunctival injection. No [...] or HSM. EXT: see below : With De Los Santos catheter. MSK: FROM without joint effusions noted arms/legs. SKIN: Warm and dry without cutaneous eruptions on Inspection/palpation. NEURO: sleepy Left foot amputation noted surgical site covered. Vague erythema from mid burrell to foot with some light scale but no discrete mass bulge or fluctuance. No crepitus or bulla Right side amputation no obvious open wound or new redness/induration Laboratory Data Results from last 7 days Lab Units 07/12/25 0454 07/11/25 0423 07/09/25 0712 WBC 10*3/mm3 8.43 8.79 9.80 HEMOGLOBIN g/dL 10.1* 9.5* 9.5* HEMATOCRIT % 33.1* 31.1* 30.7* PLATELETS 10*3/mm3 282 255 278 Results from last 7 days Lab Units 07/12/25 0454 SODIUM mmol/L 136 POTASSIUM mmol/L 6.1* CHLORIDE mmol/L 105 CO2 mmol/L 19.7* BUN mg/dL 32.6* CREATININE mg/dL 1.09 GLUCOSE mg/dL 107* CALCIUM mg/dL 8.9 Estimated Creatinine Clearance: 81.8 mL/min (by C-G formula based on SCr of 1.09 mg/dL). Microbiology: Radiology: Imaging Results (Last 72 Hours) No results found for the last 72 hours. Impression: --acute left lower leg/foot cellulitis and wound infection, prior culture July 2024 with ESBL Klebsiella pneumoniae and pseudomonas aeruginosa, pseudomonas was sensitive to Merrem per microbiology lab at [facility]. Cx at [facility] as below; He has had multiple surgeries and multiple p ractitioners recommend higher level amputation which he has refused. On prior admissions, he has refused outpatient IV antibiotics and he has refused placement for longer durations of IV antibiotics.This refusal of care has placed him at increased risk for poor outcome. Earlier in 2024 he was discharged to the care of Dr. Oneal, his outpatient ID doctor and Dr Faust his automobile travel club counselor for furthercare/workup ; readmission May 2025 and June 2025 with acute worsening in redness/drainage to left lower extremity. Surgery as above and ongoing IV abx, admission associated with bacteremia and mixed/MDR organisms; High risk for further serious morbidity and other serious sequela including p ersistent/recurrent or nonhealing wounds, persistent/progressive or recurrent infection and risk for further functional/limb loss, higher-level amputation and other dire consequences including sepsis/mortalityetc. he remains opposed to amputation; he voices understanding his poor prognosis overall including risks for dire consequences; past Cx with MRSA/PSA/ESBL at prior admissions; culture June 02, 2025 with Proteus/MRSA/PSA; Cx June 2025 below; further imaging no definitive osteomyelitis but also unable to exclude per radiology at distal first/second MT; surgery with I&D 07/03 but no further bone debridement/amputation --E Faecium bacteremia ; NOT vanco resistant; ?foot source -v- other --Acute hematuria/UTI with chronic indwelling De Los Santos catheter. Proteus in culture so far; nursing reports De Los Santos catheter has been changed since admission; urology evaluation for further consideration of cystoscopy versus SP catheter or other; urine microscopic with yeast and potential for yeast colon ization/contaminant --Acute diarrhea, Norovirus + and C. Difficile PCR +, although toxin antigen negative. He has risk for active disease and does have symptomatology and requires antibiotics for other processes, and therefore oral vancomycin added although unable to definitively confirm active disease with toxin antigen negative ( although risk for false negative); supportive care ongoing --MRSA surveillance + --Peripheral arterial disease by past evaluation of vascular team in addition to history DVT. 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; postop after 07/03 surgery with decreased LOC, seen bymedicine and adjustments per them in medications; further neuro workup per medicine / neuro team; awake/interactive as of my 07/05 visit --Hx QTc > 500 ms on prior EKG PLAN: --IV vancomycin/merrem, oral vancomycin; likely to need IV abx in light of bacteremia/abnormal MRI;final duration could depend on his surgical decisions, if he has BKA/AKA then he may not need quiteas long a duration of antibiotics in light of focus removal at that point; he would need to finish duration for bacteremia; again, final duration to depend on clinical course/surgical plans/patient goals of care etc. He does not have enough assistance at home to do IV abx at home per him; case management and palliative teams following wound culture June 02, 2025 with Proteus /MRSA, PSA urine culture June 02, 2025 E Coli/ESBL Proteus urine culture 06/25 proteus blood culture 06/25 E Faecium vanco/amp sensitive; dapto sens but dose dependent wound culture 06/25 (surface) with MRSA and ESBL proteus and morganella --Check/review labs cultures and scans --Partial history Per nursing staff --d/w Dr Alcantara/ multidisciplinary team with respect to complexity above/below [...] transitions of care for this complex patient. Duglas Andres MD 07/12/2025 [1] Allergies Allergen Reactions Keppra [Levetiracetam] Other (See Comments) Acute psychosis Bupropion Unknown (See Comments) Codeine Nausea Only Hydrocodone Unknown (See Comments) Ketorolac Tromethamine Unknown (See Comments) [2] Current Facility-Administered Medications Medication Dose Route Frequency Provider Last Rate Last Admin acetaminophen (TYLENOL) tablet 650 mg 650 mg Oral Q4H PRN Amanda Bermudez MD 650 mg at 06/29/25 0343 Or acetaminophen (TYLENOL) 160 MG/5ML oral solution 650 mg 650 mg Oral Q4H PRN Amanda Bermudez MD Or acetaminophen (TYLENOL) suppository 650 mg 650 mg Rectal Q4H PRN Amanda Bermudez MD aluminum-magnesium hydroxide-simethicone (MAALOX MAX) 400-400-40 MG/5ML suspension 15 mL 15 mL [id number] PRN Amanda Bermudez MD [Held by provider] apixaban (ELIQUIS) tablet 5 mg 5 mg Oral BID Amanda Bermudez MD ascorbic acid (VITAMIN C) tablet 500 mg 500 mg Oral Daily Amanda Bermudez MD 500 mg at 07/01/25 0830 baclofen (LIORESAL) tablet 10 mg 10 mg Oral Q12H Amanda Bermudez MD 10 mg at 07/01/25 2144 sennosides-docusate (PERICOLACE) 8.6-50 MG per tablet 2 tablet 2 tablet Oral BID PRN Amanda Bermudez MD And polyethylene glycol (MIRALAX) packet 17 g 17 g Oral Daily PRN Amanda Bermudez MD And bisacodyl (DULCOLAX) EC tablet 5 mg 5 mg Oral Daily PRN Amanda Bermudez MD And bisacodyl (DULCOLAX) suppository 10 mg 10 mg Rectal Daily PRN Amanda Bermudez MD Calcium Replacement - Follow Nurse / BPA Driven Protocol Not Applicable PRN Amanda Bermudez MD carvedilol (COREG) tablet 3.125 mg 3.125 mg Oral BID With Meals Amanda Bermudez MD 3.125 mg at 07/01/25 1712 clopidogrel (PLAVIX) tablet 75 mg 75 mg Oral Daily Amanda Bermudez MD 75 mg at 07/01/25 0830 famotidine (PEPCID) tablet 20 mg 20 mg Oral BID AC Arnoldo Crews, Amanda 20 mg at 07/02/25 0649 finasteride (PROSCAR) tablet 5 mg 5 mg Oral Daily Amanda Bermudez MD 5 mg at 07/01/25 0830 folic acid (FOLVITE) tablet 1 mg 1 mg Oral Daily Amanda Bermudez MD 1 mg at 07/01/25 0830 gabapentin (NEURONTIN) capsule 300 mg 300 mg Oral Q8H Milena Jo APRN 300 mg at 07/02/25 0649 heparin (porcine) 5000 UNIT/ML injection 5,000 Units 5,000 Units Subcutaneous Q8H Lupe Albert APRN 5,000 Units at 07/02/25 0649 influenza vac split high-dose (FLUZONE HIGH DOSE) injection 0.5 mL 0.5 mL Intramuscular During Hospitalization Kris Boston DO insulin glargine (LANTUS, SEMGLEE) injection 56 Units 56 Units Subcutaneous Nightly Amanda Bermudez MD 56 Units at 07/01/25 2145 ipratropium-albuterol (DUO-NEB) nebulizer solution 3 mL 3 mL Nebulization Q6H PRN Amanda Bermudez MD lamoTRIgine (LaMICtal) tablet 100 mg 100 mg Oral Daily Amanda Bermudez MD 100 mg at 07/01/25 0830 lamoTRIgine (LaMICtal) tablet 250 mg 250 mg Oral Nightly Amanda Bermudez MD 250 mg at 07/01/25 2144 Magnesium Cardiology Dose Replacement - Follow Nurse / BPA Driven Protocol Not Applicable PRN Amanda Bermudez MD meropenem (MERREM) 500 mg in sodium chloride 0.9 % 100 mL MBP 500 mg Intravenous Q6H Duglas Andres MD 500 mg at 07/02/25 0359 methenamine (HIPREX) tablet 1 g 1 g Oral BID With Meals Amanda Bermudez MD 1 g at 07/01/25 1713 multivitamin with minerals 1 tablet 1 tablet Oral Daily Amanda Bermudez MD 1 tablet at 07/01/25 0830 naloxone (NARCAN) injection 0.4 mg 0.4 mg Intravenous Q5 Min PRN Amanda Bermudez MD nitroglycerin (NITROSTAT) SL tablet 0.4 mg 0.4 mg Sublingual Q5 Min PRN Amanda Bermudez MD ondansetron (ZOFRAN) injection 4 mg 4 mg Intravenous Q6H PRN Amanda Bermudez MD 4 mg at 06/29/25 1646 oxyCODONE-acetaminophen (PERCOCET) 10-325 MG per tablet 1 tablet 1 tablet Oral Q6H PRN Kris Boston DO 1 tablet at 07/02/25 0125 Pharmacy to dose vancomycin Not Applicable Continuous PRN Duglas Andres MD Phosphorus Replacement - Follow Nurse / BPA Driven Protocol Not Applicable PRN Amanda Bermudez MD Potassium Replacement - Follow Nurse / BPA Driven Protocol Not Applicable PRN Amanda Bermudez MD sacubitril-valsartan (ENTRESTO) 24-26 MG tablet 1 tablet 1 tablet Oral BID Amanda Bermudez MD 1 tablet at 07/01/25 2144 sodium chloride 0.9 % flush 10 mL 10 mL Intravenous PRN Ally Jeffers V, DIABETES NURSE sodium chloride 0.9 % flush 10 mL 10 mL Intravenous Q12H Amanda Bermudez MD 10 mL at 07/01/25 0832 sodium chloride 0.9 % flush 10 mL 10 mL Intravenous PRN Amanda Bermudez MD sodium chloride 0.9 % flush 10 mL 10 mL Intravenous Q12H Duglas Andres MD 10 mL at 07/01/25 2145 sodium chloride 0.9 % flush 10 mL 10 mL Intravenous PRN Duglas Andres MD sodium chloride 0.9 % flush 20 mL 20 mL Intravenous PRN Duglas Andres MD sodium chloride 0.9 % infusion 40 mL 40 mL Intravenous PRN Duglas Andres MD vancomycin (VANCOCIN) 1,000 mg in sodium chloride 0.9 % 250 mL IVPB-VTB 1,000 mg Intravenous Q12H Osmany Mccann, [facility] 250 mL/hr at 07/01/25 2143 1,000 mg at 07/01/25 2143 vancomycin (VANCOCIN) capsule 125 mg 125 mg Oral 4x Daily Duglas Andres MD 125 mg at Followed by [START ON 07/10/2025] vancomycin (VANCOCIN) capsule 125 mg 125 mg Oral TID Duglas Andres MD Followed by [START ON 07/17/2025] vancomycin (VANCOCIN) capsule 125 mg 125 mg Oral BID Duglas Andres MD Followed by [START ON 07/25/2025] vancomycin (VANCOCIN) capsule 125 mg 125 mg Oral Daily Duglas Andres MD Followed by [START ON 08/01/2025] vancomycin (VANCOCIN) capsule 125 mg 125 mg Oral Weekly Duglas Andres MD * Osmany Mccann [facility] - 07/11/2025 11:01 AM EDT Pharmacy Consult - Vancomycin Dosing and Monitoring Trung Pool is a 70 y.o. male receiving vancomycin therapy. Indication: Bacteremia Consulting Provider: Duglas Andres MD ID Consult: yes Goal AUC: 400-600 mg/L*hr Current Antimicrobial Therapy Vancomycin dosing per levels Meropenem 500mg q6h Allergies Allergies as of 06/25/2025 - Reviewed 06/25/2025 Allergen Reaction Noted Keppra [levetiracetam] Other (See Comments) 08/01/2023 Bupropion Unknown (See Comments) 03/06/2022 Codeine Nausea Only 04/28/2019 Hydrocodone Unknown (See Comments) 03/06/2022 Ketorolac tromethamine Unknown (See Comments) 03/06/2022 Labs Results from last 7 days Lab Units 07/11/2542207/09/25 0712 07/08/25 1418 BUN mg/dL 26.6* 21.6 18.7 CREATININE mg/dL 1.09 1.05 0.91 Results from last 7 days Lab Units 07/11/2542207/09/25 0712 07/08/25 0542 WBC 10*3/mm3 8.79 9.80 7.37 Evaluation of Dosing Last Dose Received in the ED/Outside Facility: no Is Patient on Dialysis or Renal Replacement: no Height - 182.9 cm (72 ) Weight - 116 kg (256 lb 9.6 oz) Estimated Creatinine Clearance: 81.8 mL/min (by C-G formula based on SCr of 1.09 mg/dL). I/O last 3 completed shifts: In: 1150 [P.O.:1050; IV Piggyback:100] Out: 6350 [Urine:6350] Microbiology and Radiology Microbiology Results (last 10 days) No results found for the last 240 hours. Reported Vancomycin Levels Results from last 7 days Lab Units 07/11/25422 VANCOMYCIN RM mcg/mL 16.40 Results from last 7 days Lab Units 07/09/2512 VANCOMYCIN TR mcg/mL 31.40* [facility] AUC Calculation: Current AUC: -- mg/L*hr Predicted Steady State AUC on Current Dose: n/a mg/L*hr Predicted Steady State AUC on New Dose: 513 mg/L*hr Assessment/Plan: Vancomycin dosing for bacteremia Goal AUC: 400-600 mg/L*hr 07/11 SCr - 1.09 07/11 WBC - 8.79 24hr tmax - 98.0 Will restart vancomycin 1250mg q24h Obtain vancomycin level 07/14 with am labs BMP ordered Monitor renal function, clinical status and infusion related reactions Follow vancomycin levels and adjust dose accordingly Thanks Osmany Mccann [facility] 07/11/2025 11:01 EDT * Chinyere Hensley APRN - 07/11/2025 8:14 AM EDT Images from the original note were not included. [facility] Medicine Services PROGRESS NOTE Patient Name: Trung Pool : [id number] Date of Admission: 06/25/2025 Primary Care Physician: Gustavo Mehta MD Subjective Subjective CC: LLE wound HPI: No changes overnight. Wants to take a day or so to think about options for discharge. Leaning towards home with HH and continuing antibiotics. Doesn't want to be in a usp. Objective Objective Vital Signs: Temp: [97.6 ??F (36.4 ??C)-98 ??F (36.7 ??C)] 97.9 ??F (36.6 ??C) Heart Rate: [62-91] 71 Resp: [16-18] 18 BP: (119-164)/(55-83) 119/69 Physical Exam: Constitutional: No acute distress, awake, alert, ill appearing HENT: NCAT, mucous membranes moist Respiratory: Clear to auscultation bilaterally, respiratory effort normal room air Cardiovascular: RRR, no murmurs, rubs, or gallops Gastrointestinal: Positive bowel sounds, soft, nontender, nondistended Musculoskeletal: right BKA, left LLE erythema with wound vac, left foot toes amputated, edema of LLE with dry scales Psychiatric: Appropriate affect, cooperative Neurologic: Oriented x 3, strength symmetric in all extremities, Cranial Nerves grossly intact to confrontation, speech clear Skin: No rashes, pale de [place] santos to BSD No changes from 07/10 Results Reviewed: LAB RESULTS: Lab 07/11/25 0423 07/09/25 0712 07/08/25 0542 07/07/25 0343 07/06/25 1246 WBC 8.79 9.80 7.37 7.72 8.43 HEMOGLOBIN 9.5* 9.5* 9.7* 9.3* 9.5* HEMATOCRIT 31.1* 30.7* 35.5* 30.9* 31.1* PLATELETS 255 278 281 275 300 MCV 78.5* 77.9* 84.7 79.0 77.8* Lab 07/11/25 0423 07/09/25 0712 07/08/25 1418 07/08/25 0542 07/07/25 0343 07/06/25 1246 SODIUM 135* 136 136 131* 134* 134* POTASSIUM 6.2* 5.8* 5.9* 6.0* 5.2 6.2* CHLORIDE 104 106 104 104 101 103 CO2 22.0 21.8* 21.1* 17.4* 22.2 23.9 ANION GAP 9.0 8.2 10.9 9.6 10.8 7.1 BUN 26.6* 21.6 18.7 19.5 18.3 16.5 CREATININE 1.09 1.05 0.91 0.94 1.02 1.02 EGFR 72.6 75.9 90.1 86.7 78.6 78.6 GLUCOSE 133* 53* 89 120* 171* 119* CALCIUM 8.7 8.7 8.8 8.5* 8.6 8.5* MAGNESIUM 2.1 2.1 -- 2.2 2.0 2.1 Brief Urine Lab Results (Last result in the past 365 days) Color Clarity Blood Leuk Est Nitrite Protein CREAT Urine HCG 06/25/252000 Yellow Turbid Large (3+) Large (3+) Positive Trace Microbiology Results Abnormal Procedure Component Value - Date/Time Urine Culture - Urine, Indwelling Urethral Catheter [[id number]] (Abnormal) (Susceptibility) Collected: 06/25/252000 Lab Status: Final result Specimen: Urine from Indwelling Urethral Catheter Updated: 06/30/25 1001 Urine Culture >100,000 CFU/mL Proteus mirabilis Narrative: Colonization of the urinary tract without infection is common. Treatment is discouraged unless the patient is symptomatic, , or undergoing an invasive urologic procedure. Susceptibility Proteus mirabilis MURRAY Amoxicillin + Clavulanate Susceptible Ampicillin Resistant Ampicillin + Sulbactam Intermediate Cefazolin (Urine) Resistant Cefepime Resistant Ceftazidime Susceptible Ceftriaxone Resistant Cefuroxime axetil Resistant Ciprofloxacin Resistant Gentamicin Susceptible Levofloxacin Resistant Nitrofurantoin Resistant Piperacillin + Tazobactam Susceptible Trimethoprim + Sulfamethoxazole Resistant Blood Culture - Blood, Hand, Right [[id number]] (Abnormal) (Susceptibility) Collected: 06/25/25 2030 Lab Status: Edited Result - FINAL Specimen: Blood from Hand, Right Updated: 06/29/25 07 Blood Culture Enterococcus faecium Comment: Infectious disease consultation is highly recommended. Isolated from Anaerobic Bottle Gram Stain Anaerobic Bottle Gram positive cocci in chains Narrative: Less than seven (7) mL's of blood was collected. Insufficient quantity may yield false negative results. requested linezolid & daptomycin 06/28/25 Susceptibility Enterococcus faecium MURRAY Method Not Specified Ampicillin Susceptible Daptomycin Susceptible dose dependent Gentamicin High Level Synergy Susceptible Linezolid Susceptible (C) [1] Vancomycin Susceptible [1] Appended report. These results have been appended to a previously final verified report. Wound Culture - Swab, Foot, Left [[id number]] (Abnormal) (Susceptibility) Collected: 06/25/25 1818 Lab Status: Final result Specimen: Swab from Foot, Left Updated: 06/29/25 0645 Wound Culture Heavy growth (4+) Staphylococcus aureus, MRSA Comment: Methicillin resistant Staphylococcus aureus, Patient may be an isolation risk. Moderate growth (3+) Morganella morganii ssp morganii Moderate growth (3+) Proteus mirabilis ESBL Comment: Consider infectious disease consult. Susceptibility results may not correlate to clinical outcomes. Gram Stain Few (2+) WBCs seen Few (2+) Gram positive cocci in pairs, chains and clusters Few (2+) Gram negative bacilli Susceptibility Staphylococcus aureus, MRSA MURRAY Clindamycin Susceptible Erythromycin Resistant Oxacillin Resistant Rifampin Susceptible Tetracycline Susceptible Trimethoprim + Sulfamethoxazole Resistant Vancomycin Susceptible Susceptibility Morganella morganii ssp morganii MURRAY Method Not Specified Amoxicillin + Clavulanate Resistant Ampicillin Resistant Ampicillin + Sulbactam Resistant Cefazolin (Non Urine) Resistant Cefepime Susceptible Cefotaxime Susceptible Ceftazidime Susceptible Cefuroxime axetil Resistant Ciprofloxacin Resistant Gentamicin Susceptible Levofloxacin Resistant Piperacillin + Tazobactam Susceptible Tetracycline Susceptible Trimethoprim + Sulfamethoxazole Resistant Susceptibility Proteus mirabilis ESBL MURRAY Ciprofloxacin Resistant Ertapenem Susceptible Levofloxacin Resistant Meropenem Susceptible Tetracycline Resistant Trimethoprim + Sulfamethoxazole Resistant Susceptibility Comments Morganella morganii ssp morganii Cefotaxime susceptibility can be used as a surrogate for ceftriaxone susceptibility Proteus mirabilis ESBL With the exception of urinary-sourced infections, aminoglycosides should not be used as monotherapy. Blood Culture ID, PCR - Blood, Hand, Right [[id number]] (Abnormal) Collected: 06/25/252029 Lab Status: Final result Specimen: Blood from Hand, Right Updated: 06/26/252101 BCID, PCR Enterococcus faecium. Zee/B (vancomycin resistance gene) not detected. Identification by BCID2 PCR. BOTTLE TYPE Anaerobic Bottle Narrative: Infectious disease consultation is highly recommended to rule out distant foci of infection. MRSA Screen, PCR (Inpatient) - Swab, Nares [[id number]] (Abnormal) Collected: 06/26/2545 Lab Status: Final result Specimen: Swab from Nares Updated: 06/26/25849 MRSA PCR Positive Narrative: The negative predictive value of this diagnostic test is high and should only be used to consider de-escalating anti-MRSA therapy. A positive result may indicate colonization with MRSA and must be correlated clinically. Gastrointestinal Panel, PCR - Stool, Per Rectum [[id number]] (Abnormal) Collected: 06/26/2545 Lab Status: Final result Specimen: Stool from Per Rectum Updated: 06/26/25 0850 Campylobacter Not Detected Plesiomonas shigelloides Not Detected Salmonella Not Detected Vibrio Not Detected Vibrio cholerae Not Detected Yersinia enterocolitica Not Detected Enteroaggregative E. coli (EAEC) Not Detected Enteropathogenic E. coli (EPEC) Not Detected Enterotoxigenic E. coli (ETEC) lt/st Not Detected Shiga-like toxin-producing E. coli (STEC) stx1/stx2 Not Detected Shigella/Enteroinvasive E. coli (EIEC) Not Detected Cryptosporidium Not Detected Cyclospora cayetanensis Not Detected Entamoeba histolytica Not Detected Giardia lamblia Not Detected Adenovirus F40/41 Not Detected Astrovirus Not Detected Norovirus GI/GII Detected Comment: If a positive Norovirus result is inconsistent with clinical presentation, the positive Norovirus result should be confirmed using another method. Rotavirus A Not Detected Sapovirus (I, II, IV or V) Not Detected Clostridioides difficile Toxin - Stool, Per Rectum [[id number]] (Abnormal) Collected: 06/26/2545 Lab Status: Final result Specimen: Stool from Per Rectum Updated: 06/26/25754 Narrative: The following orders were created for panel order Clostridioides difficile Toxin - Stool, Per Rectum. Procedure Abnormality Status --------- ------ Clostridioides difficile...[[id number]] Abnormal Final result Please view results for these tests on the individual orders. Clostridioides difficile Toxin, PCR - Stool, Per Rectum [[id number]] (Abnormal) Collected: 06/26/2545 Lab Status: Final result Specimen: Stool from Per Rectum Updated: 06/26/25754 Toxigenic C. difficile by PCR Detected Narrative: DNA from a toxigenic strain of C.difficile has been detected. Microbiology Results Abnormal Procedure Component Value - Date/Time Urine Culture - Urine, Indwelling Urethral Catheter [[id number]] (Abnormal) (Susceptibility) Collected: 06/25/252000 Lab Status: Final result Specimen: Urine from Indwelling Urethral Catheter Updated: 06/30/25 1001 Urine Culture >100,000 CFU/mL Proteus mirabilis Narrative: Colonization of the urinary tract without infection is common. Treatment is discouraged unless the patient is symptomatic, , or undergoing an invasive urologic procedure. Susceptibility Proteus mirabilis MURRAY Amoxicillin + Clavulanate Susceptible Ampicillin Resistant Ampicillin + Sulbactam Intermediate Cefazolin (Urine) Resistant Cefepime Resistant Ceftazidime Susceptible Ceftriaxone Resistant Cefuroxime axetil Resistant Ciprofloxacin Resistant Gentamicin Susceptible Levofloxacin Resistant Nitrofurantoin Resistant Piperacillin + Tazobactam Susceptible Trimethoprim + Sulfamethoxazole Resistant Blood Culture - Blood, Hand, Right [[id number]] (Abnormal) (Susceptibility) Collected: 06/25/252029 Lab Status: Edited Result - FINAL Specimen: Blood from Hand, Right Updated: 06/29/25 0713 Blood Culture Enterococcus faecium Comment: Infectious disease consultation is highly recommended. Isolated from Anaerobic Bottle Gram Stain Anaerobic Bottle Gram positive cocci in chains Narrative: Less than seven (7) mL's of blood was collected. Insufficient quantity may yield false negative results. requested linezolid & daptomycin 06/28/25 Susceptibility Enterococcus faecium MURRAY Method Not Specified Ampicillin Susceptible Daptomycin Susceptible dose dependent Gentamicin High Level Synergy Susceptible Linezolid Susceptible (C) [1] Vancomycin Susceptible [1] Appended report. These results have been appended to a previously final verified report. Wound Culture - Swab, Foot, Left [[id number]] (Abnormal) (Susceptibility) Collected: 06/25/251817 Lab Status: Final result Specimen: Swab from Foot, Left Updated: 06/29/25644 Wound Culture Heavy growth (4+) Staphylococcus aureus, MRSA Comment: Methicillin resistant Staphylococcus aureus, Patient may be an isolation risk. Moderate growth (3+) Morganella morganii ssp morganii Moderate growth (3+) Proteus mirabilis ESBL Comment: Consider infectious disease consult. Susceptibility results may not correlate to clinical outcomes. Gram Stain Few (2+) WBCs seen Few (2+) Gram positive cocci in pairs, chains and clusters Few (2+) Gram negative bacilli Susceptibility Staphylococcus aureus, MRSA MURRAY Clindamycin Susceptible Erythromycin Resistant Oxacillin Resistant Rifampin Susceptible Tetracycline Susceptible Trimethoprim + Sulfamethoxazole Resistant Vancomycin Susceptible Susceptibility Morganella morganii ssp morganii MURRAY Method Not Specified Amoxicillin + Clavulanate Resistant Ampicillin Resistant Ampicillin + Sulbactam Resistant Cefazolin (Non Urine) Resistant Cefepime Susceptible Cefotaxime Susceptible Ceftazidime Susceptible Cefuroxime axetil Resistant Ciprofloxacin Resistant Gentamicin Susceptible Levofloxacin Resistant Piperacillin + Tazobactam Susceptible Tetracycline Susceptible Trimethoprim + Sulfamethoxazole Resistant Susceptibility Proteus mirabilis ESBL MURRAY Ciprofloxacin Resistant Ertapenem Susceptible Levofloxacin Resistant Meropenem Susceptible Tetracycline Resistant Trimethoprim + Sulfamethoxazole Resistant Susceptibility Comments Morganella morganii ssp morganii Cefotaxime susceptibility can be used as a surrogate for ceftriaxone susceptibility Proteus mirabilis ESBL With the exception of urinary-sourced infections, aminoglycosides should not be used as monotherapy. Blood Culture ID, PCR - Blood, Hand, Right [[id number]] (Abnormal) Collected: 06/25/25 2030 Lab Status: Final result Specimen: Blood from Hand, Right Updated: 06/26/252101 BCID, PCR Enterococcus faecium. Zee/B (vancomycin resistance gene) not detected. Identification by BCID2 PCR. BOTTLE TYPE Anaerobic Bottle Narrative: Infectious disease consultation is highly recommended to rule out distant foci of infection. MRSA Screen, PCR (Inpatient) - Swab, Nares [[id number]] (Abnormal) Collected: 06/26/2545 Lab Status: Final result Specimen: Swab from Nares Updated: 06/26/2550 MRSA PCR Positive Narrative: The negative predictive value of this diagnostic test is high and should only be used to consider de-escalating anti-MRSA therapy. A positive result may indicate colonization with MRSA and must be correlated clinically. Gastrointestinal Panel, PCR - Stool, Per Rectum [[id number]] (Abnormal) Collected: 06/26/2545 Lab Status: Final result Specimen: Stool from Per Rectum Updated: 06/26/2550 Campylobacter Not Detected Plesiomonas shigelloides Not Detected Salmonella Not Detected Vibrio Not Detected Vibrio cholerae Not Detected Yersinia enterocolitica Not Detected Enteroaggregative E. coli (EAEC) Not Detected Enteropathogenic E. coli (EPEC) Not Detected Enterotoxigenic E. coli (ETEC) lt/st Not Detected Shiga-like toxin-producing E. coli (STEC) stx1/stx2 Not Detected Shigella/Enteroinvasive E. coli (EIEC) Not Detected Cryptosporidium Not Detected Cyclospora cayetanensis Not Detected Entamoeba histolytica Not Detected Giardia lamblia Not Detected Adenovirus F40/41 Not Detected Astrovirus Not Detected Norovirus GI/GII Detected Comment: If a positive Norovirus result is inconsistent with clinical presentation, the positive Norovirus result should be confirmed using another method. Rotavirus A Not Detected Sapovirus (I, II, IV or V) Not Detected Clostridioides difficile Toxin - Stool, Per Rectum [[id number]] (Abnormal) Collected: 06/26/2545 Lab Status: Final result Specimen: Stool from Per Rectum Updated: 06/26/25 0780 Narrative: The following orders were created for panel order Clostridioides difficile Toxin - Stool, Per Rectum. Procedure Abnormality Status --------- ------ Clostridioides difficile...[[id number]] Abnormal Final result Please view results for these tests on the individual orders. Clostridioides difficile Toxin, PCR - Stool, Per Rectum [[id number]] (Abnormal) Collected: 06/26/25 0046 Lab Status: Final result Specimen: Stool from Per Rectum Updated: 06/26/25 0755 Toxigenic C. difficile by PCR Detected Narrative: DNA from a toxigenic strain of C.difficile has been detected. Microbiology Results Abnormal Procedure Component Value - Date/Time Urine Culture - Urine, Indwelling Urethral Catheter [[id number]] (Abnormal) (Susceptibility) Collected: 06/25/252000 Lab Status: Final result Specimen: Urine from Indwelling Urethral Catheter Updated: 06/30/25 1001 Urine Culture >100,000 CFU/mL Proteus mirabilis Narrative: Colonization of the urinary tract without infection is common. Treatment is discouraged unless the patient is symptomatic, , or undergoing an invasive urologic procedure. Susceptibility Proteus mirabilis MURRAY Amoxicillin + Clavulanate Susceptible Ampicillin Resistant Ampicillin + Sulbactam Intermediate Cefazolin (Urine) Resistant Cefepime Resistant Ceftazidime Susceptible Ceftriaxone Resistant Cefuroxime axetil Resistant Ciprofloxacin Resistant Gentamicin Susceptible Levofloxacin Resistant Nitrofurantoin Resistant Piperacillin + Tazobactam Susceptible Trimethoprim + Sulfamethoxazole Resistant Blood Culture - Blood, Hand, Right [[id number]] (Abnormal) (Susceptibility) Collected: 06/25/252029 Lab Status: Edited Result - FINAL Specimen: Blood from Hand, Right Updated: 06/29/25 0713 Blood Culture Enterococcus faecium Comment: Infectious disease consultation is highly recommended. Isolated from Anaerobic Bottle Gram Stain Anaerobic Bottle Gram positive cocci in chains Narrative: Less than seven (7) mL's of blood was collected. Insufficient quantity may yield false negative results. requested linezolid & daptomycin 06/28/25 Susceptibility Enterococcus faecium MURRAY Method Not Specified Ampicillin Susceptible Daptomycin Susceptible dose dependent Gentamicin High Level Synergy Susceptible Linezolid Susceptible (C) [1] Vancomycin Susceptible [1] Appended report. These results have been appended to a previously final verified report. Wound Culture - Swab, Foot, Left [[id number]] (Abnormal) (Susceptibility) Collected: 06/25/25 181 Lab Status: Final result Specimen: Swab from Foot, Left Updated: 06/29/25 0645 Wound Culture Heavy growth (4+) Staphylococcus aureus, MRSA Comment: Methicillin resistant Staphylococcus aureus, Patient may be an isolation risk. Moderate growth (3+) Morganella morganii ssp morganii Moderate growth (3+) Proteus mirabilis ESBL Comment: Consider infectious disease consult. Susceptibility results may not correlate to clinical outcomes. Gram Stain Few (2+) WBCs seen Few (2+) Gram positive cocci in pairs, chains and clusters Few (2+) Gram negative bacilli Susceptibility Staphylococcus aureus, MRSA MURRAY Clindamycin Susceptible Erythromycin Resistant Oxacillin Resistant Rifampin Susceptible Tetracycline Susceptible Trimethoprim + Sulfamethoxazole Resistant Vancomycin Susceptible Susceptibility Morganella morganii ssp morganii MURRAY Method Not Specified Amoxicillin + Clavulanate Resistant Ampicillin Resistant Ampicillin + Sulbactam Resistant Cefazolin (Non Urine) Resistant Cefepime Susceptible Cefotaxime Susceptible Ceftazidime Susceptible Cefuroxime axetil Resistant Ciprofloxacin Resistant Gentamicin Susceptible Levofloxacin Resistant Piperacillin + Tazobactam Susceptible Tetracycline Susceptible Trimethoprim + Sulfamethoxazole Resistant Susceptibility Proteus mirabilis ESBL MURRAY Ciprofloxacin Resistant Ertapenem Susceptible Levofloxacin Resistant Meropenem Susceptible Tetracycline Resistant Trimethoprim + Sulfamethoxazole Resistant Susceptibility Comments Morganella morganii ssp morganii Cefotaxime susceptibility can be used as a surrogate for ceftriaxone susceptibility Proteus mirabilis ESBL With the exception of urinary-sourced infections, aminoglycosides should not be used as monotherapy. Blood Culture ID, PCR - Blood, Hand, Right [[id number]] (Abnormal) Collected: 06/25/252029 Lab Status: Final result Specimen: Blood from Hand, Right Updated: 06/26/252101 BCID, PCR Enterococcus faecium. Zee/B (vancomycin resistance gene) not detected. Identification by BCID2 PCR. BOTTLE TYPE Anaerobic Bottle Narrative: Infectious disease consultation is highly recommended to rule out distant foci of infection. MRSA Screen, PCR (Inpatient) - Swab, Nares [[id number]] (Abnormal) Collected: 06/26/2545 Lab Status: Final result Specimen: Swab from Nares Updated: 06/26/25 0850 MRSA PCR Positive Narrative: The negative predictive value of this diagnostic test is high and should only be used to consider de-escalating anti-MRSA therapy. A positive result may indicate colonization with MRSA and must be correlated clinically. Gastrointestinal Panel, PCR - Stool, Per Rectum [[id number]] (Abnormal) Collected: 06/26/2545 Lab Status: Final result Specimen: Stool from Per Rectum Updated: 06/26/25 0850 Campylobacter Not Detected Plesiomonas shigelloides Not Detected Salmonella Not Detected Vibrio Not Detected Vibrio cholerae Not Detected Yersinia enterocolitica Not Detected Enteroaggregative E. coli (EAEC) Not Detected Enteropathogenic E. coli (EPEC) Not Detected Enterotoxigenic E. coli (ETEC) lt/st Not Detected Shiga-like toxin-producing E. coli (STEC) stx1/stx2 Not Detected Shigella/Enteroinvasive E. coli (EIEC) Not Detected Cryptosporidium Not Detected Cyclospora cayetanensis Not Detected Entamoeba histolytica Not Detected Giardia lamblia Not Detected Adenovirus F40/41 Not Detected Astrovirus Not Detected Norovirus GI/GII Detected Comment: If a positive Norovirus result is inconsistent with clinical presentation, the positive Norovirus result should be confirmed using another method. Rotavirus A Not Detected Sapovirus (I, II, IV or V) Not Detected Clostridioides difficile Toxin - Stool, Per Rectum [[id number]] (Abnormal) Collected: 06/26/2545 Lab Status: Final result Specimen: Stool from Per Rectum Updated: 06/26/25 075 Narrative: The following orders were created for panel order Clostridioides difficile Toxin - Stool, Per Rectum. Procedure Abnormality Status --------- ------ Clostridioides difficile...[[id number]] Abnormal Final result Please view results for these tests on the individual orders. Clostridioides difficile Toxin, PCR - Stool, Per Rectum [[id number]] (Abnormal) Collected: 06/26/2545 Lab Status: Final result Specimen: Stool from Per Rectum Updated: 06/26/25754 Toxigenic C. difficile by PCR Detected Narrative: DNA from a toxigenic strain of C.difficile has been detected. Microbiology Results Abnormal Procedure Component Value - Date/Time Urine Culture - Urine, Indwelling Urethral Catheter [[id number]] (Abnormal) (Susceptibility) Collected: 06/25/252000 Lab Status: Final result Specimen: Urine from Indwelling Urethral Catheter Updated: 06/30/25 1001 Urine Culture >100,000 CFU/mL Proteus mirabilis Narrative: Colonization of the urinary tract without infection is common. Treatment is discouraged unless the patient is symptomatic, , or undergoing an invasive urologic procedure. Susceptibility Proteus mirabilis MURRAY Amoxicillin + Clavulanate Susceptible Ampicillin Resistant Ampicillin + Sulbactam Intermediate Cefazolin (Urine) Resistant Cefepime Resistant Ceftazidime Susceptible Ceftriaxone Resistant Cefuroxime axetil Resistant Ciprofloxacin Resistant Gentamicin Susceptible Levofloxacin Resistant Nitrofurantoin Resistant Piperacillin + Tazobactam Susceptible Trimethoprim + Sulfamethoxazole Resistant Blood Culture - Blood, Hand, Right [[id number]] (Abnormal) (Susceptibility) Collected: 06/25/252029 Lab Status: Edited Result - FINAL Specimen: Blood from Hand, Right Updated: 06/29/25 0713 Blood Culture Enterococcus faecium Comment: Infectious disease consultation is highly recommended. Isolated from Anaerobic Bottle Gram Stain Anaerobic Bottle Gram positive cocci in chains Narrative: Less than seven (7) mL's of blood was collected. Insufficient quantity may yield false negative results. requested linezolid & daptomycin 06/28/25 Susceptibility Enterococcus faecium MURRAY Method Not Specified Ampicillin Susceptible Daptomycin Susceptible dose dependent Gentamicin High Level Synergy Susceptible Linezolid Susceptible (C) [1] Vancomycin Susceptible [1] Appended report. These results have been appended to a previously final verified report. Wound Culture - Swab, Foot, Left [[id number]] (Abnormal) (Susceptibility) Collected: 06/25/251817 Lab Status: Final result Specimen: Swab from Foot, Left Updated: 06/29/25 0645 Wound Culture Heavy growth (4+) Staphylococcus aureus, MRSA Comment: Methicillin resistant Staphylococcus aureus, Patient may be an isolation risk. Moderate growth (3+) Morganella morganii ssp morganii Moderate growth (3+) Proteus mirabilis ESBL Comment: Consider infectious disease consult. Susceptibility results may not correlate to clinical outcomes. Gram Stain Few (2+) WBCs seen Few (2+) Gram positive cocci in pairs, chains and clusters Few (2+) Gram negative bacilli Susceptibility Staphylococcus aureus, MRSA MURRAY Clindamycin Susceptible Erythromycin Resistant Oxacillin Resistant Rifampin Susceptible Tetracycline Susceptible Trimethoprim + Sulfamethoxazole Resistant Vancomycin Susceptible Susceptibility Morganella morganii ssp morganii MURRAY Method Not Specified Amoxicillin + Clavulanate Resistant Ampicillin Resistant Ampicillin + Sulbactam Resistant Cefazolin (Non Urine) Resistant Cefepime Susceptible Cefotaxime Susceptible Ceftazidime Susceptible Cefuroxime axetil Resistant Ciprofloxacin Resistant Gentamicin Susceptible Levofloxacin Resistant Piperacillin + Tazobactam Susceptible Tetracycline Susceptible Trimethoprim + Sulfamethoxazole Resistant Susceptibility Proteus mirabilis ESBL MURRAY Ciprofloxacin Resistant Ertapenem Susceptible Levofloxacin Resistant Meropenem Susceptible Tetracycline Resistant Trimethoprim + Sulfamethoxazole Resistant Susceptibility Comments Morganella morganii ssp morganii Cefotaxime susceptibility can be used as a surrogate for ceftriaxone susceptibility Proteus mirabilis ESBL With the exception of urinary-sourced infections, aminoglycosides should not be used as monotherapy. Blood Culture ID, PCR - Blood, Hand, Right [[id number]] (Abnormal) Collected: 06/25/252029 Lab Status: Final result Specimen: Blood from Hand, Right Updated: 06/26/252101 BCID, PCR Enterococcus faecium. Zee/B (vancomycin resistance gene) not detected. Identification by BCID2 PCR. BOTTLE TYPE Anaerobic Bottle Narrative: Infectious disease consultation is highly recommended to rule out distant foci of infection. MRSA Screen, PCR (Inpatient) - Swab, Nares [[id number]] (Abnormal) Collected: 06/26/2545 Lab Status: Final result Specimen: Swab from Nares Updated: 06/26/2550 MRSA PCR Positive Narrative: The negative predictive value of this diagnostic test is high and should only be used to consider de-escalating anti-MRSA therapy. A positive result may indicate colonization with MRSA and must be correlated clinically. Gastrointestinal Panel, PCR - Stool, Per Rectum [[id number]] (Abnormal) Collected: 06/26/2545 Lab Status: Final result Specimen: Stool from Per Rectum Updated: 06/26/2550 Campylobacter Not Detected Plesiomonas shigelloides Not Detected Salmonella Not Detected Vibrio Not Detected Vibrio cholerae Not Detected Yersinia enterocolitica Not Detected Enteroaggregative E. coli (EAEC) Not Detected Enteropathogenic E. coli (EPEC) Not Detected Enterotoxigenic E. coli (ETEC) lt/st Not Detected Shiga-like toxin-producing E. coli (STEC) stx1/stx2 Not Detected Shigella/Enteroinvasive E. coli (EIEC) Not Detected Cryptosporidium Not Detected Cyclospora cayetanensis Not Detected Entamoeba histolytica Not Detected Giardia lamblia Not Detected Adenovirus F40/41 Not Detected Astrovirus Not Detected Norovirus GI/GII Detected Comment: If a positive Norovirus result is inconsistent with clinical presentation, the positive Norovirus result should be confirmed using another method. Rotavirus A Not Detected Sapovirus (I, II, IV or V) Not Detected Clostridioides difficile Toxin - Stool, Per Rectum [[id number]] (Abnormal) Collected: 06/26/2545 Lab Status: Final result Specimen: Stool from Per Rectum Updated: 06/26/25754 Narrative: The following orders were created for panel order Clostridioides difficile Toxin - Stool, Per Rectum. Procedure Abnormality Status --------- ------ Clostridioides difficile...[[id number]] Abnormal Final result Please view results for these tests on the individual orders. Clostridioides difficile Toxin, PCR - Stool, Per Rectum [[id number]] (Abnormal) Collected: 06/26/2545 Lab Status: Final result Specimen: Stool from Per Rectum Updated: 06/26/25754 Toxigenic C. difficile by PCR Detected Narrative: DNA from a toxigenic strain of C.difficile has been detected. No radiology results from the last 24 hrs Results for orders placed during the hospital encounter of 08/31/24 Adult Transthoracic Echo Complete W/ Cont if Necessary Per Protocol 09/12/2024 4:10 PM Interpretation Summary ??? Left ventricular systolic function is normal. Calculated left ventricular EF = 52.5% ??? There is a trivial pericardial effusion. ??? The aortic valve exhibits sclerosis. ??? Mitral annular calcification is present. I have personally reviewed the therapy plans: [x] PT/OT/ ST Therapy Plans Current medications: Scheduled Meds:acetaminophen, 1,000 mg, Oral, Q8H apixaban, 5 mg, Oral, BID vitamin C, 500 mg, Oral, Daily baclofen, 10 mg, Oral, Q12H carvedilol, 3.125 mg, Oral, BID With Meals clopidogrel, 75 mg, Oral, Daily famotidine, 20 mg, Oral, BID AC finasteride, 5 mg, Oral, Daily folic acid, 1 mg, Oral, Daily gabapentin, 600 mg, Oral, Q8H insulin glargine, 40 Units, Subcutaneous, Nightly lamoTRIgine, 100 mg, Oral, Daily lamoTRIgine, 250 mg, Oral, Nightly meropenem, 500 mg, Intravenous, Q6H methenamine, 1 g, Oral, BID With Meals mirtazapine, 15 mg, Oral, Nightly multivitamin with minerals, 1 tablet, Oral, Daily OLANZapine zydis, 5 mg, Oral, Nightly sacubitril-valsartan, 1 tablet, Oral, BID sodium chloride, 10 mL, Intravenous, Q12H sodium chloride, 10 mL, Intravenous, Q12H vancomycin (dosing per levels), , Not Applicable, Daily vancomycin, 125 mg, Oral, TID Followed by [START ON 07/17/2025] vancomycin, 125 mg, Oral, BID Followed by [START ON 07/25/2025] vancomycin, 125 mg, Oral, Daily Followed by [START ON 08/01/2025] vancomycin, 125 mg, Oral, Weekly Continuous Infusions: PRN Meds:.??? aluminum-magnesium hydroxide-simethicone ??? senna-docusate sodium AND polyethylene glycol AND bisacodyl AND bisacodyl ??? Calcium Replacement - Follow Nurse / BPA Driven Protocol ??? diphenhydrAMINE-zinc acetate ??? influenza vaccine ??? ipratropium-albuterol ??? Magnesium Cardiology Dose Replacement - Follow Nurse / BPA Driven Protocol ??? [DISCONTINUED] Morphine AND naloxone ??? nitroglycerin ??? ondansetron ??? oxyCODONE ??? Phosphorus Replacement - Follow Nurse / BPA Driven Protocol ??? Potassium Replacement - Follow Nurse / BPA Driven Protocol ??? Insert Peripheral IV AND sodium chloride ??? sodium chloride ??? sodium chloride ??? sodium chloride ??? sodium chloride Assessment & Plan Assessment & Plan Active Hospital Problems Diagnosis POA ??? Gastroenteritis due to norovirus [A08.11] Yes ??? Acute UTI (urinary tract infection) [N39.0] Yes ??? Diarrhea of presumed infectious origin [R19.7] Yes ??? Acute on chronic blood loss anemia [D62] Yes ??? BPH without obstruction/lower urinary tract symptoms [N40.0] Yes ??? GERD without esophagitis [K21.9] Yes ??? Bilateral inguinal hernia [K40.20] Yes ??? Cellulitis [L03.90] Yes ??? Type 2 diabetes mellitus, with long-term current use of insulin [E11.9, Z79.4] Not Applicable ??? Wound infection [T14.8XXA, L08.9] Unknown ??? PAD (peripheral artery disease) [I73.9] Yes ??? Coronary artery disease involving [place] coronary artery of [place] heart without angina pectoris [I25.10] Yes ??? Seizure disorder [G40.909] Yes ??? Primary hypertension [I10] Yes Resolved Hospital Problems No resolved problems to display. Brief Hospital Course to date: Trung Pool is a 70 y.o. male with a past medical history of coronary artery disease, peripheral artery disease, type 2 diabetes mellitus (on insulin), right above-knee amputation, and seizure disorder, who was admitted with hematuria, left foot stump drainage, fatigue, and diarrhea. Workup notable for norovirus and Enterococcus bacteremia. Urology, Infectious disease and vascular surgery consulted while inpatient. Planning for left lower extremity debridement and possible wound VAC placement with vascular surgery. This patient's problems and plans were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 Current Facility-Administered Medications Medication Dose Route Frequency Provider Last Rate Last Admin acetaminophen (TYLENOL) tablet 650 mg 650 mg Oral Q4H PRN Amanda Bermudez MD 650 mg at 06/29/25 0343 Or acetaminophen (TYLENOL) 160 MG/5ML oral solution 650 mg 650 mg Oral Q4H PRN Amanda Bermudez MD Or acetaminophen (TYLENOL) suppository 650 mg 650 mg Rectal Q4H PRN Amanda Bermudez MD aluminum-magnesium hydroxide-simethicone (MAALOX MAX) 400-400-40 MG/5ML suspension 15 mL 15 mL [id number] PRN Amanda Bermudez MD [Held by provider] apixaban (ELIQUIS) tablet 5 mg 5 mg Oral BID Amanda Bermudez MD ascorbic acid (VITAMIN C) tablet 500 mg 500 mg Oral Daily Amanda Bermudez MD 500 mg at 07/01/25 0830 baclofen (LIORESAL) tablet 10 mg 10 mg Oral Q12H Amanda Bermudez MD 10 mg at 07/01/25 2144 sennosides-docusate (PERICOLACE) 8.6-50 MG per tablet 2 tablet 2 tablet Oral BID PRN Amanda Bermudez MD And polyethylene glycol (MIRALAX) packet 17 g 17 g Oral Daily PRN Amanda Bermudez MD And bisacodyl (DULCOLAX) EC tablet 5 mg 5 mg Oral Daily PRN Amanda Bermudez MD And bisacodyl (DULCOLAX) suppository 10 mg 10 mg Rectal Daily PRN Amanda Bermudez MD Calcium Replacement - Follow Nurse / BPA Driven Protocol Not Applicable PRN Amanda Bermudez MD carvedilol (COREG) tablet 3.125 mg 3.125 mg Oral BID With Meals Amnada Bermudez MD 3.125 mg at 07/01/25 1712 clopidogrel (PLAVIX) tablet 75 mg 75 mg Oral Daily Amanda Bermudez MD 75 mg at 07/01/25 0830 famotidine (PEPCID) tablet 20 mg 20 mg Oral BID AC Arnoldo Crews, Amanda 20 mg at 07/02/25 0649 finasteride (PROSCAR) tablet 5 mg 5 mg Oral Daily Amanda Bermudez MD 5 mg at 07/01/25 0830 folic acid (FOLVITE) tablet 1 mg 1 mg Oral Daily Amanda Bermudez MD 1 mg at 07/01/25 0830 gabapentin (NEURONTIN) capsule 300 mg 300 mg Oral Q8H Milena Jo APRN 300 mg at 07/02/25 0649 heparin (porcine) 5000 UNIT/ML injection 5,000 Units 5,000 Units Subcutaneous Q8H Lupe Albert APRN 5,000 Units at 07/02/25 0649 influenza vac split high-dose (FLUZONE HIGH DOSE) injection 0.5 mL 0.5 mL Intramuscular During Hospitalization Kris Boston DO insulin glargine (LANTUS, SEMGLEE) injection 56 Units 56 Units Subcutaneous Nightly Amanda Bermudez MD 56 Units at 07/01/25 2145 ipratropium-albuterol (DUO-NEB) nebulizer solution 3 mL 3 mL Nebulization Q6H PRN Amanda Bermudez MD lamoTRIgine (LaMICtal) tablet 100 mg 100 mg Oral Daily Amanda Bermudez MD 100 mg at 07/01/25 0830 lamoTRIgine (LaMICtal) tablet 250 mg 250 mg Oral Nightly Amanda Bermudez MD 250 mg at 07/01/25 2144 Magnesium Cardiology Dose Replacement - Follow Nurse / BPA Driven Protocol Not Applicable PRN Amanda Bermudez MD meropenem (MERREM) 500 mg in sodium chloride 0.9 % 100 mL MBP 500 mg Intravenous Q6H Duglas Andres MD 500 mg at 07/02/25 0359 methenamine (HIPREX) tablet 1 g 1 g Oral BID With Meals Amanda Bermudez MD 1 g at 07/01/25 1713 multivitamin with minerals 1 tablet 1 tablet Oral Daily Amanda Bermudez MD 1 tablet at 07/01/25 0830 naloxone (NARCAN) injection 0.4 mg 0.4 mg Intravenous Q5 Min PRN Amanda Bermudez MD nitroglycerin (NITROSTAT) SL tablet 0.4 mg 0.4 mg Sublingual Q5 Min PRN Amanda Bermudez MD ondansetron (ZOFRAN) injection 4 mg 4 mg Intravenous Q6H PRN Amanda Bermudez MD 4 mg at 06/29/25 1646 oxyCODONE-acetaminophen (PERCOCET) 10-325 MG per tablet 1 tablet 1 tablet Oral Q6H PRN Kris Boston DO 1 tablet at 07/02/25 0125 Pharmacy to dose vancomycin Not Applicable Continuous PRN Duglas Andres MD Phosphorus Replacement - Follow Nurse / BPA Driven Protocol Not Applicable PRN Amanda Bermudez MD Potassium Replacement - Follow Nurse / BPA Driven Protocol Not Applicable PRN Amanda Bermudez MD sacubitril-valsartan (ENTRESTO) 24-26 MG tablet 1 tablet 1 tablet Oral BID Amanda Bermudez MD 1 tablet at 07/01/25 2144 sodium chloride 0.9 % flush 10 mL 10 mL Intravenous PRN Ally Jeffers V, DIABETES NURSE sodium chloride 0.9 % flush 10 mL 10 mL Intravenous Q12H Amanda Bermudez MD 10 mL at 07/01/25 0832 sodium chloride 0.9 % flush 10 mL 10 mL Intravenous PRN Amanda Bermudez MD sodium chloride 0.9 % flush 10 mL 10 mL Intravenous Q12H Duglas Andres MD 10 mL at 07/01/25 2145 sodium chloride 0.9 % flush 10 mL 10 mL Intravenous PRN Duglas Andres MD sodium chloride 0.9 % flush 20 mL 20 mL Intravenous PRN Duglas Andres MD sodium chloride 0.9 % infusion 40 mL 40 mL Intravenous PRN Duglas Andres MD vancomycin (VANCOCIN) 1,000 mg in sodium chloride 0.9 % 250 mL IVPB-VTB 1,000 mg Intravenous Q12H Osmany Mccann, [facility] 250 mL/hr at 07/01/252142 1,000 mg at 07/01/25 214 vancomycin (VANCOCIN) capsule 125 mg 125 mg Oral 4x Daily Duglas Andres MD 125 mg at Followed by [START ON 07/10/2025] vancomycin (VANCOCIN) capsule 125 mg 125 mg Oral TID Duglas Andres MD Followed by [START ON 07/17/2025] vancomycin (VANCOCIN) capsule 125 mg 125 mg Oral BID Duglas Andres MD Followed by [START ON 07/25/2025] vancomycin (VANCOCIN) capsule 125 mg 125 mg Oral Daily Duglas Andres MD Followed by [START ON 08/01/2025] vancomycin (VANCOCIN) capsule 125 mg 125 mg Oral Weekly Duglas Andres MD * Chinyere Hensley, DIABETES NURSE - 07/10/2025 4:15 PM EDT Images from the original note were not included. [facility] Medicine Services PROGRESS NOTE Patient Name: Trung Pool : [id number] Date of Admission: 06/25/2025 Primary Care Physician: Gustavo Mehta MD Subjective Subjective CC: LLE wound HPI: Discussed with patient he remains full code and until he makes official decision to be comfort careor return home with Hospice, he is encouraged to continue taking antibiotics to treat his current condition. Patient is very agreeable. States he refused medications and labs because he was upset with staff, he thought he was moved into a different patient room and being lied to. Unsure if patient was confused overnight. Currently alert and oriented. Pain is worse today in LLE. Has non prod cough. Has not made official decision about home with Hospice yet. Objective Objective Vital Signs: Temp: [97 ??F (36.1 ??C)-98.6 ??F (37 ??C)] 98 ??F (36.7 ??C) Heart Rate: [64-99] 71 Resp: [16-20] 18 BP: (125-157)/(60-74) 157/74 Physical Exam: Constitutional: No acute distress, awake, alert, ill appearing HENT: NCAT, mucous membranes moist Respiratory: Clear to auscultation bilaterally, respiratory effort normal room air Cardiovascular: RRR, no murmurs, rubs, or gallops Gastrointestinal: Positive bowel sounds, soft, nontender, nondistended Musculoskeletal: right BKA, left LLE erythema with wound vac, left foot toes amputated, edema of LLE with dry scales Psychiatric: Appropriate affect, cooperative Neurologic: Oriented x 3, strength symmetric in all extremities, Cranial Nerves grossly intact to confrontation, speech clear Skin: No rashes, pale de los santos to BSD Results Reviewed: LAB RESULTS: Lab 07/09/25 0712 07/08/25 0542 07/07/25 0343 07/06/25 1246 07/04/25 0347 WBC 9.80 7.37 7.72 8.43 8.21 HEMOGLOBIN 9.5* 9.7* 9.3* 9.5* 9.3* HEMATOCRIT 30.7* 35.5* 30.9* 31.1* 31.1* PLATELETS 278 281 275 300 264 NEUTROS ABS -- -- -- -- 5.86 IMMATURE GRANS (ABS) -- -- -- -- 0.05 LYMPHS ABS -- -- -- -- 1.53 MONOS ABS -- -- -- -- 0.70 EOS ABS -- -- -- -- 0.04 MCV 77.9* 84.7 79.0 77.8* 77.2* Lab 07/09/25 0712 07/08/25 1418 07/08/25 0542 07/07/25 0343 07/06/25 1246 SODIUM 136 136 131* 134* 134* POTASSIUM 5.8* 5.9* 6.0* 5.2 6.2* CHLORIDE 106 104 104 101 103 CO2 21.8* 21.1* 17.4* 22.2 23.9 ANION GAP 8.2 10.9 9.6 10.8 7.1 BUN 21.6 18.7 19.5 18.3 16.5 CREATININE 1.05 0.91 0.94 1.02 1.02 EGFR 75.9 90.1 86.7 78.6 78.6 GLUCOSE 53* 89 120* 171* 119* CALCIUM 8.7 8.8 8.5* 8.6 8.5* MAGNESIUM 2.1 -- 2.2 2.0 2.1 Lab 07/03/25 1900 PH, ARTERIAL 7.362 PCO2, ARTERIAL 41.7 PO2 ART 172.0* FIO2 60 HCO3 ART 23.6 BASE EXCESS ART -1.7* CARBOXYHEMOGLOBIN 1.1 Brief Urine Lab Results (Last result in the past 365 days) Color Clarity Blood Leuk Est Nitrite Protein CREAT Urine HCG 06/25/252000 Yellow Turbid Large (3+) Large (3+) Positive Trace Microbiology Results Abnormal Procedure Component Value - Date/Time Urine Culture - Urine, Indwelling Urethral Catheter [[id number]] (Abnormal) (Susceptibility) Collected: 06/25/252000 Lab Status: Final result Specimen: Urine from Indwelling Urethral Catheter Updated: 06/30/25 1001 Urine Culture >100,000 CFU/mL Proteus mirabilis Narrative: Colonization of the urinary tract without infection is common. Treatment is discouraged unless the patient is symptomatic, , or undergoing an invasive urologic procedure. Susceptibility Proteus mirabilis MURRAY Amoxicillin + Clavulanate Susceptible Ampicillin Resistant Ampicillin + Sulbactam Intermediate Cefazolin (Urine) Resistant Cefepime Resistant Ceftazidime Susceptible Ceftriaxone Resistant Cefuroxime axetil Resistant Ciprofloxacin Resistant Gentamicin Susceptible Levofloxacin Resistant Nitrofurantoin Resistant Piperacillin + Tazobactam Susceptible Trimethoprim + Sulfamethoxazole Resistant Blood Culture - Blood, Hand, Right [[id number]] (Abnormal) (Susceptibility) Collected: 06/25/25 2030 Lab Status: Edited Result - FINAL Specimen: Blood from Hand, Right Updated: 06/29/25 07 Blood Culture Enterococcus faecium Comment: Infectious disease consultation is highly recommended. Isolated from Anaerobic Bottle Gram Stain Anaerobic Bottle Gram positive cocci in chains Narrative: Less than seven (7) mL's of blood was collected. Insufficient quantity may yield false negative results. requested linezolid & daptomycin 06/28/25 Susceptibility Enterococcus faecium MURRAY Method Not Specified Ampicillin Susceptible Daptomycin Susceptible dose dependent Gentamicin High Level Synergy Susceptible Linezolid Susceptible (C) [1] Vancomycin Susceptible [1] Appended report. These results have been appended to a previously final verified report. Wound Culture - Swab, Foot, Left [[id number]] (Abnormal) (Susceptibility) Collected: 06/25/25 1818 Lab Status: Final result Specimen: Swab from Foot, Left Updated: 06/29/25 0645 Wound Culture Heavy growth (4+) Staphylococcus aureus, MRSA Comment: Methicillin resistant Staphylococcus aureus, Patient may be an isolation risk. Moderate growth (3+) Morganella morganii ssp morganii Moderate growth (3+) Proteus mirabilis ESBL Comment: Consider infectious disease consult. Susceptibility results may not correlate to clinical outcomes. Gram Stain Few (2+) WBCs seen Few (2+) Gram positive cocci in pairs, chains and clusters Few (2+) Gram negative bacilli Susceptibility Staphylococcus aureus, MRSA MURRAY Clindamycin Susceptible Erythromycin Resistant Oxacillin Resistant Rifampin Susceptible Tetracycline Susceptible Trimethoprim + Sulfamethoxazole Resistant Vancomycin Susceptible Susceptibility Morganella morganii ssp morganii MURRAY Method Not Specified Amoxicillin + Clavulanate Resistant Ampicillin Resistant Ampicillin + Sulbactam Resistant Cefazolin (Non Urine) Resistant Cefepime Susceptible Cefotaxime Susceptible Ceftazidime Susceptible Cefuroxime axetil Resistant Ciprofloxacin Resistant Gentamicin Susceptible Levofloxacin Resistant Piperacillin + Tazobactam Susceptible Tetracycline Susceptible Trimethoprim + Sulfamethoxazole Resistant Susceptibility Proteus mirabilis ESBL MURRAY Ciprofloxacin Resistant Ertapenem Susceptible Levofloxacin Resistant Meropenem Susceptible Tetracycline Resistant Trimethoprim + Sulfamethoxazole Resistant Susceptibility Comments Morganella morganii ssp morganii Cefotaxime susceptibility can be used as a surrogate for ceftriaxone susceptibility Proteus mirabilis ESBL With the exception of urinary-sourced infections, aminoglycosides should not be used as monotherapy. Blood Culture ID, PCR - Blood, Hand, Right [[id number]] (Abnormal) Collected: 06/25/252029 Lab Status: Final result Specimen: Blood from Hand, Right Updated: 06/26/252101 BCID, PCR Enterococcus faecium. Zee/B (vancomycin resistance gene) not detected. Identification byBCID2 PCR. BOTTLE TYPE Anaerobic Bottle Narrative: Infectious disease consultation is highly recommended to rule out distant foci of infection. MRSA Screen, PCR (Inpatient) - Swab, Nares [[id number]] (Abnormal) Collected: 06/26/2545 Lab Status: Final result Specimen: Swab from Nares Updated: 06/26/25849 MRSA PCR Positive Narrative: The negative predictive value of this diagnostic test is high and should only be used to consider de-escalating anti-MRSA therapy. A positive result may indicate colonization with MRSA and must be correlated clinically. Gastrointestinal Panel, PCR - Stool, Per Rectum [[id number]] (Abnormal) Collected: 06/26/2545 Lab Status: Final result Specimen: Stool from Per Rectum Updated: 06/26/25 0850 Campylobacter Not Detected Plesiomonas shigelloides Not Detected Salmonella Not Detected Vibrio Not Detected Vibrio cholerae Not Detected Yersinia enterocolitica Not Detected Enteroaggregative E. coli (EAEC) Not Detected Enteropathogenic E. coli (EPEC) Not Detected Enterotoxigenic E. coli (ETEC) lt/st Not Detected Shiga-like toxin-producing E. coli (STEC) stx1/stx2 Not Detected Shigella/Enteroinvasive E. coli (EIEC) Not Detected Cryptosporidium Not Detected Cyclospora cayetanensis Not Detected Entamoeba histolytica Not Detected Giardia lamblia Not Detected Adenovirus F40/41 Not Detected Astrovirus Not Detected Norovirus GI/GII Detected Comment: If a positive Norovirus result is inconsistent with clinical presentation, the positive Norovirus result should be confirmed using another method. Rotavirus A Not Detected Sapovirus (I, II, IV or V) Not Detected Clostridioides difficile Toxin - Stool, Per Rectum [[id number]] (Abnormal) Collected: 06/26/2545 Lab Status: Final result Specimen: Stool from Per Rectum Updated: 06/26/25754 Narrative: The following orders were created for panel order Clostridioides difficile Toxin - Stool, Per Rectum. Procedure Abnormality Status --------- ------ Clostridioides difficile...[[id number]] Abnormal Final result Please view results for these tests on the individual orders. Clostridioides difficile Toxin, PCR - Stool, Per Rectum [[id number]] (Abnormal) Collected: 06/26/2545 Lab Status: Final result Specimen: Stool from Per Rectum Updated: 06/26/25754 Toxigenic C. difficile by PCR Detected Narrative: DNA from a toxigenic strain of C.difficile has been detected. Microbiology Results Abnormal Procedure Component Value - Date/Time Urine Culture - Urine, Indwelling Urethral Catheter [[id number]] (Abnormal) (Susceptibility) Collected: 06/25/252000 Lab Status: Final result Specimen: Urine from Indwelling Urethral Catheter Updated: 06/30/25 1001 Urine Culture >100,000 CFU/mL Proteus mirabilis Narrative: Colonization of the urinary tract without infection is common. Treatment is discouraged unless the patient is symptomatic, , or undergoing an invasive urologic procedure. Susceptibility Proteus mirabilis MURRAY Amoxicillin + Clavulanate Susceptible Ampicillin Resistant Ampicillin + Sulbactam Intermediate Cefazolin (Urine) Resistant Cefepime Resistant Ceftazidime Susceptible Ceftriaxone Resistant Cefuroxime axetil Resistant Ciprofloxacin Resistant Gentamicin Susceptible Levofloxacin Resistant Nitrofurantoin Resistant Piperacillin + Tazobactam Susceptible Trimethoprim + Sulfamethoxazole Resistant Blood Culture - Blood, Hand, Right [[id number]] (Abnormal) (Susceptibility) Collected: 06/25/252029 Lab Status: Edited Result - FINAL Specimen: Blood from Hand, Right Updated: 06/29/25 0713 Blood Culture Enterococcus faecium Comment: Infectious disease consultation is highly recommended. Isolated from Anaerobic Bottle Gram Stain Anaerobic Bottle Gram positive cocci in chains Narrative: Less than seven (7) mL's of blood was collected. Insufficient quantity may yield false negative results. requested linezolid & daptomycin 06/28/25 Susceptibility Enterococcus faecium MURRAY Method Not Specified Ampicillin Susceptible Daptomycin Susceptible dose dependent Gentamicin High Level Synergy Susceptible Linezolid Susceptible (C) [1] Vancomycin Susceptible [1] Appended report. These results have been appended to a previously final verified report. Wound Culture - Swab, Foot, Left [[id number]] (Abnormal) (Susceptibility) Collected: 06/25/25 1818 Lab Status: Final result Specimen: Swab from Foot, Left Updated: 06/29/25 06 Wound Culture Heavy growth (4+) Staphylococcus aureus, MRSA Comment: Methicillin resistant Staphylococcus aureus, Patient may be an isolation risk. Moderate growth (3+) Morganella morganii ssp morganii Moderate growth (3+) Proteus mirabilis ESBL Comment: Consider infectious disease consult. Susceptibility results may not correlate to clinical outcomes. Gram Stain Few (2+) WBCs seen Few (2+) Gram positive cocci in pairs, chains and clusters Few (2+) Gram negative bacilli Susceptibility Staphylococcus aureus, MRSA MURRAY Clindamycin Susceptible Erythromycin Resistant Oxacillin Resistant Rifampin Susceptible Tetracycline Susceptible Trimethoprim + Sulfamethoxazole Resistant Vancomycin Susceptible Susceptibility Morganella morganii ssp morganii MURRAY Method Not Specified Amoxicillin + Clavulanate Resistant Ampicillin Resistant Ampicillin + Sulbactam Resistant Cefazolin (Non Urine) Resistant Cefepime Susceptible Cefotaxime Susceptible Ceftazidime Susceptible Cefuroxime axetil Resistant Ciprofloxacin Resistant Gentamicin Susceptible Levofloxacin Resistant Piperacillin + Tazobactam Susceptible Tetracycline Susceptible Trimethoprim + Sulfamethoxazole Resistant Susceptibility Proteus mirabilis ESBL MURRAY Ciprofloxacin Resistant Ertapenem Susceptible Levofloxacin Resistant Meropenem Susceptible Tetracycline Resistant Trimethoprim + Sulfamethoxazole Resistant Susceptibility Comments Morganella morganii ssp morganii Cefotaxime susceptibility can be used as a surrogate for ceftriaxone susceptibility Proteus mirabilis ESBL With the exception of urinary-sourced infections, aminoglycosides should not be used as monotherapy. Blood Culture ID, PCR - Blood, Hand, Right [[id number]] (Abnormal) Collected: 06/25/25 2030 Lab Status: Final result Specimen: Blood from Hand, Right Updated: 06/26/252101 BCID, PCR Enterococcus faecium. Zee/B (vancomycin resistance gene) not detected. Identification byBCID2 PCR. BOTTLE TYPE Anaerobic Bottle Narrative: Infectious disease consultation is highly recommended to rule out distant foci of infection. MRSA Screen, PCR (Inpatient) - Swab, Nares [[id number]] (Abnormal) Collected: 06/26/2545 Lab Status: Final result Specimen: Swab from Nares Updated: 06/26/25 0850 MRSA PCR Positive Narrative: The negative predictive value of this diagnostic test is high and should only be used to consider de-escalating anti-MRSA therapy. A positive result may indicate colonization with MRSA and must be correlated clinically. Gastrointestinal Panel, PCR - Stool, Per Rectum [[id number]] (Abnormal) Collected: 06/26/2545 Lab Status: Final result Specimen: Stool from Per Rectum Updated: 06/26/25 0850 Campylobacter Not Detected Plesiomonas shigelloides Not Detected Salmonella Not Detected Vibrio Not Detected Vibrio cholerae Not Detected Yersinia enterocolitica Not Detected Enteroaggregative E. coli (EAEC) Not Detected Enteropathogenic E. coli (EPEC) Not Detected Enterotoxigenic E. coli (ETEC) lt/st Not Detected Shiga-like toxin-producing E. coli (STEC) stx1/stx2 Not Detected Shigella/Enteroinvasive E. coli (EIEC) Not Detected Cryptosporidium Not Detected Cyclospora cayetanensis Not Detected Entamoeba histolytica Not Detected Giardia lamblia Not Detected Adenovirus F40/41 Not Detected Astrovirus Not Detected Norovirus GI/GII Detected Comment: If a positive Norovirus result is inconsistent with clinical presentation, the positive Norovirus result should be confirmed using another method. Rotavirus A Not Detected Sapovirus (I, II, IV or V) Not Detected Clostridioides difficile Toxin - Stool, Per Rectum [[id number]] (Abnormal) Collected: 06/26/2545 Lab Status: Final result Specimen: Stool from Per Rectum Updated: 06/26/25 8375 Narrative: The following orders were created for panel order Clostridioides difficile Toxin - Stool, Per Rectum. Procedure Abnormality Status --------- ------ Clostridioides difficile...[[id number]] Abnormal Final result Please view results for these tests on the individual orders. Clostridioides difficile Toxin, PCR - Stool, Per Rectum [[id number]] (Abnormal) Collected: 06/26/25 0046 Lab Status: Final result Specimen: Stool from Per Rectum Updated: 06/26/25 0755 Toxigenic C. difficile by PCR Detected Narrative: DNA from a toxigenic strain of C.difficile has been detected. Microbiology Results Abnormal Procedure Component Value - Date/Time Urine Culture - Urine, Indwelling Urethral Catheter [[id number]] (Abnormal) (Susceptibility) Collected: 06/25/252000 Lab Status: Final result Specimen: Urine from Indwelling Urethral Catheter Updated: 06/30/25 1001 Urine Culture >100,000 CFU/mL Proteus mirabilis Narrative: Colonization of the urinary tract without infection is common. Treatment is discouraged unless the patient is symptomatic, , or undergoing an invasive urologic procedure. Susceptibility Proteus mirabilis MURRAY Amoxicillin + Clavulanate Susceptible Ampicillin Resistant Ampicillin + Sulbactam Intermediate Cefazolin (Urine) Resistant Cefepime Resistant Ceftazidime Susceptible Ceftriaxone Resistant Cefuroxime axetil Resistant Ciprofloxacin Resistant Gentamicin Susceptible Levofloxacin Resistant Nitrofurantoin Resistant Piperacillin + Tazobactam Susceptible Trimethoprim + Sulfamethoxazole Resistant Blood Culture - Blood, Hand, Right [[id number]] (Abnormal) (Susceptibility) Collected: 06/25/252029 Lab Status: Edited Result - FINAL Specimen: Blood from Hand, Right Updated: 06/29/25 0713 Blood Culture Enterococcus faecium Comment: Infectious disease consultation is highly recommended. Isolated from Anaerobic Bottle Gram Stain Anaerobic Bottle Gram positive cocci in chains Narrative: Less than seven (7) mL's of blood was collected. Insufficient quantity may yield false negative results. requested linezolid & daptomycin 06/28/25 Susceptibility Enterococcus faecium MURRAY Method Not Specified Ampicillin Susceptible Daptomycin Susceptible dose dependent Gentamicin High Level Synergy Susceptible Linezolid Susceptible (C) [1] Vancomycin Susceptible [1] Appended report. These results have been appended to a previously final verified report. Wound Culture - Swab, Foot, Left [[id number]] (Abnormal) (Susceptibility) Collected: 06/25/25 181 Lab Status: Final result Specimen: Swab from Foot, Left Updated: 06/29/25 0645 Wound Culture Heavy growth (4+) Staphylococcus aureus, MRSA Comment: Methicillin resistant Staphylococcus aureus, Patient may be an isolation risk. Moderate growth (3+) Morganella morganii ssp morganii Moderate growth (3+) Proteus mirabilis ESBL Comment: Consider infectious disease consult. Susceptibility results may not correlate to clinical outcomes. Gram Stain Few (2+) WBCs seen Few (2+) Gram positive cocci in pairs, chains and clusters Few (2+) Gram negative bacilli Susceptibility Staphylococcus aureus, MRSA MURRAY Clindamycin Susceptible Erythromycin Resistant Oxacillin Resistant Rifampin Susceptible Tetracycline Susceptible Trimethoprim + Sulfamethoxazole Resistant Vancomycin Susceptible Susceptibility Morganella morganii ssp morganii MURRAY Method Not Specified Amoxicillin + Clavulanate Resistant Ampicillin Resistant Ampicillin + Sulbactam Resistant Cefazolin (Non Urine) Resistant Cefepime Susceptible Cefotaxime Susceptible Ceftazidime Susceptible Cefuroxime axetil Resistant Ciprofloxacin Resistant Gentamicin Susceptible Levofloxacin Resistant Piperacillin + Tazobactam Susceptible Tetracycline Susceptible Trimethoprim + Sulfamethoxazole Resistant Susceptibility Proteus mirabilis ESBL MURRAY Ciprofloxacin Resistant Ertapenem Susceptible Levofloxacin Resistant Meropenem Susceptible Tetracycline Resistant Trimethoprim + Sulfamethoxazole Resistant Susceptibility Comments Morganella morganii ssp morganii Cefotaxime susceptibility can be used as a surrogate for ceftriaxone susceptibility Proteus mirabilis ESBL With the exception of urinary-sourced infections, aminoglycosides should not be used as monotherapy. Blood Culture ID, PCR - Blood, Hand, Right [[id number]] (Abnormal) Collected: 06/25/252029 Lab Status: Final result Specimen: Blood from Hand, Right Updated: 06/26/252101 BCID, PCR Enterococcus faecium. Zee/B (vancomycin resistance gene) not detected. Identification byBCID2 PCR. BOTTLE TYPE Anaerobic Bottle Narrative: Infectious disease consultation is highly recommended to rule out distant foci of infection. MRSA Screen, PCR (Inpatient) - Swab, Nares [[id number]] (Abnormal) Collected: 06/26/2545 Lab Status: Final result Specimen: Swab from Nares Updated: 06/26/25 0850 MRSA PCR Positive Narrative: The negative predictive value of this diagnostic test is high and should only be used to consider de-escalating anti-MRSA therapy. A positive result may indicate colonization with MRSA and must be correlated clinically. Gastrointestinal Panel, PCR - Stool, Per Rectum [[id number]] (Abnormal) Collected: 06/26/2545 Lab Status: Final result Specimen: Stool from Per Rectum Updated: 06/26/25 0850 Campylobacter Not Detected Plesiomonas shigelloides Not Detected Salmonella Not Detected Vibrio Not Detected Vibrio cholerae Not Detected Yersinia enterocolitica Not Detected Enteroaggregative E. coli (EAEC) Not Detected Enteropathogenic E. coli (EPEC) Not Detected Enterotoxigenic E. coli (ETEC) lt/st Not Detected Shiga-like toxin-producing E. coli (STEC) stx1/stx2 Not Detected Shigella/Enteroinvasive E. coli (EIEC) Not Detected Cryptosporidium Not Detected Cyclospora cayetanensis Not Detected Entamoeba histolytica Not Detected Giardia lamblia Not Detected Adenovirus F40/41 Not Detected Astrovirus Not Detected Norovirus GI/GII Detected Comment: If a positive Norovirus result is inconsistent with clinical presentation, the positive Norovirus result should be confirmed using another method. Rotavirus A Not Detected Sapovirus (I, II, IV or V) Not Detected Clostridioides difficile Toxin - Stool, Per Rectum [[id number]] (Abnormal) Collected: 06/26/2545 Lab Status: Final result Specimen: Stool from Per Rectum Updated: 06/26/25 0755 Narrative: The following orders were created for panel order Clostridioides difficile Toxin - Stool, Per Rectum. Procedure Abnormality Status --------- ------ Clostridioides difficile...[[id number]] Abnormal Final result Please view results for these tests on the individual orders. Clostridioides difficile Toxin, PCR - Stool, Per Rectum [[id number]] (Abnormal) Collected: 06/26/2545 Lab Status: Final result Specimen: Stool from Per Rectum Updated: 06/26/25 0755 Toxigenic C. difficile by PCR Detected Narrative: DNA from a toxigenic strain of C.difficile has been detected. Microbiology Results Abnormal Procedure Component Value - Date/Time Urine Culture - Urine, Indwelling Urethral Catheter [[id number]] (Abnormal) (Susceptibility) Collected: 06/25/252000 Lab Status: Final result Specimen: Urine from Indwelling Urethral Catheter Updated: 06/30/25 1001 Urine Culture >100,000 CFU/mL Proteus mirabilis Narrative: Colonization of the urinary tract without infection is common. Treatment is discouraged unless the patient is symptomatic, , or undergoing an invasive urologic procedure. Susceptibility Proteus mirabilis MURRAY Amoxicillin + Clavulanate Susceptible Ampicillin Resistant Ampicillin + Sulbactam Intermediate Cefazolin (Urine) Resistant Cefepime Resistant Ceftazidime Susceptible Ceftriaxone Resistant Cefuroxime axetil Resistant Ciprofloxacin Resistant Gentamicin Susceptible Levofloxacin Resistant Nitrofurantoin Resistant Piperacillin + Tazobactam Susceptible Trimethoprim + Sulfamethoxazole Resistant Blood Culture - Blood, Hand, Right [[id number]] (Abnormal) (Susceptibility) Collected: 06/25/25 2030 Lab Status: Edited Result - FINAL Specimen: Blood from Hand, Right Updated: 06/29/25 0713 Blood Culture Enterococcus faecium Comment: Infectious disease consultation is highly recommended. Isolated from Anaerobic Bottle Gram Stain Anaerobic Bottle Gram positive cocci in chains Narrative: Less than seven (7) mL's of blood was collected. Insufficient quantity may yield false negative results. requested linezolid & daptomycin 06/28/25 Susceptibility Enterococcus faecium MURRAY Method Not Specified Ampicillin Susceptible Daptomycin Susceptible dose dependent Gentamicin High Level Synergy Susceptible Linezolid Susceptible (C) [1] Vancomycin Susceptible [1] Appended report. These results have been appended to a previously final verified report. Wound Culture - Swab, Foot, Left [[id number]] (Abnormal) (Susceptibility) Collected: 06/25/258 Lab Status: Final result Specimen: Swab from Foot, Left Updated: 06/29/25 0645 Wound Culture Heavy growth (4+) Staphylococcus aureus, MRSA Comment: Methicillin resistant Staphylococcus aureus, Patient may be an isolation risk. Moderate growth (3+) Morganella morganii ssp morganii Moderate growth (3+) Proteus mirabilis ESBL Comment: Consider infectious disease consult. Susceptibility results may not correlate to clinical outcomes. Gram Stain Few (2+) WBCs seen Few (2+) Gram positive cocci in pairs, chains and clusters Few (2+) Gram negative bacilli Susceptibility Staphylococcus aureus, MRSA MURRAY Clindamycin Susceptible Erythromycin Resistant Oxacillin Resistant Rifampin Susceptible Tetracycline Susceptible Trimethoprim + Sulfamethoxazole Resistant Vancomycin Susceptible Susceptibility Morganella morganii ssp morganii MURRAY Method Not Specified Amoxicillin + Clavulanate Resistant Ampicillin Resistant Ampicillin + Sulbactam Resistant Cefazolin (Non Urine) Resistant Cefepime Susceptible Cefotaxime Susceptible Ceftazidime Susceptible Cefuroxime axetil Resistant Ciprofloxacin Resistant Gentamicin Susceptible Levofloxacin Resistant Piperacillin + Tazobactam Susceptible Tetracycline Susceptible Trimethoprim + Sulfamethoxazole Resistant Susceptibility Proteus mirabilis ESBL MURRAY Ciprofloxacin Resistant Ertapenem Susceptible Levofloxacin Resistant Meropenem Susceptible Tetracycline Resistant Trimethoprim + Sulfamethoxazole Resistant Susceptibility Comments Morganella morganii ssp morganii Cefotaxime susceptibility can be used as a surrogate for ceftriaxone susceptibility Proteus mirabilis ESBL With the exception of urinary-sourced infections, aminoglycosides should not be used as monotherapy. Blood Culture ID, PCR - Blood, Hand, Right [[id number]] (Abnormal) Collected: 06/25/252029 Lab Status: Final result Specimen: Blood from Hand, Right Updated: 06/26/252101 BCID, PCR Enterococcus faecium. Zee/B (vancomycin resistance gene) not detected. Identification byBCID2 PCR. BOTTLE TYPE Anaerobic Bottle Narrative: Infectious disease consultation is highly recommended to rule out distant foci of infection. MRSA Screen, PCR (Inpatient) - Swab, Nares [[id number]] (Abnormal) Collected: 06/26/2545 Lab Status: Final result Specimen: Swab from Nares Updated: 06/26/25 0850 MRSA PCR Positive Narrative: The negative predictive value of this diagnostic test is high and should only be used to consider de-escalating anti-MRSA therapy. A positive result may indicate colonization with MRSA and must be correlated clinically. Gastrointestinal Panel, PCR - Stool, Per Rectum [[id number]] (Abnormal) Collected: 06/26/2545 Lab Status: Final result Specimen: Stool from Per Rectum Updated: 06/26/25 0850 Campylobacter Not Detected Plesiomonas shigelloides Not Detected Salmonella Not Detected Vibrio Not Detected Vibrio cholerae Not Detected Yersinia enterocolitica Not Detected Enteroaggregative E. coli (EAEC) Not Detected Enteropathogenic E. coli (EPEC) Not Detected Enterotoxigenic E. coli (ETEC) lt/st Not Detected Shiga-like toxin-producing E. coli (STEC) stx1/stx2 Not Detected Shigella/Enteroinvasive E. coli (EIEC) Not Detected Cryptosporidium Not Detected Cyclospora cayetanensis Not Detected Entamoeba histolytica Not Detected Giardia lamblia Not Detected Adenovirus F40/41 Not Detected Astrovirus Not Detected Norovirus GI/GII Detected Comment: If a positive Norovirus result is inconsistent with clinical presentation, the positive Norovirus result should be confirmed using another method. Rotavirus A Not Detected Sapovirus (I, II, IV or V) Not Detected Clostridioides difficile Toxin - Stool, Per Rectum [[id number]] (Abnormal) Collected: 06/26/2545 Lab Status: Final result Specimen: Stool from Per Rectum Updated: 06/26/25 0755 Narrative: The following orders were created for panel order Clostridioides difficile Toxin - Stool, Per Rectum. Procedure Abnormality Status --------- ------ Clostridioides difficile...[[id number]] Abnormal Final result Please view results for these tests on the individual orders. Clostridioides difficile Toxin, PCR - Stool, Per Rectum [[id number]] (Abnormal) Collected: 06/26/2545 Lab Status: Final result Specimen: Stool from Per Rectum Updated: 06/26/25754 Toxigenic C. difficile by PCR Detected Narrative: DNA from a toxigenic strain of C.difficile has been detected. Microbiology Results Abnormal Procedure Component Value - Date/Time Urine Culture - Urine, Indwelling Urethral Catheter [[id number]] (Abnormal) (Susceptibility) Collected: 06/25/252000 Lab Status: Final result Specimen: Urine from Indwelling Urethral Catheter Updated: 06/30/25 1001 Urine Culture >100,000 CFU/mL Proteus mirabilis Narrative: Colonization of the urinary tract without infection is common. Treatment is discouraged unless the patient is symptomatic, , or undergoing an invasive urologic procedure. Susceptibility Proteus mirabilis MURRAY Amoxicillin + Clavulanate Susceptible Ampicillin Resistant Ampicillin + Sulbactam Intermediate Cefazolin (Urine) Resistant Cefepime Resistant Ceftazidime Susceptible Ceftriaxone Resistant Cefuroxime axetil Resistant Ciprofloxacin Resistant Gentamicin Susceptible Levofloxacin Resistant Nitrofurantoin Resistant Piperacillin + Tazobactam Susceptible Trimethoprim + Sulfamethoxazole Resistant Blood Culture - Blood, Hand, Right [[id number]] (Abnormal) (Susceptibility) Collected: 06/25/252029 Lab Status: Edited Result - FINAL Specimen: Blood from Hand, Right Updated: 06/29/25 0713 Blood Culture Enterococcus faecium Comment: Infectious disease consultation is highly recommended. Isolated from Anaerobic Bottle Gram Stain Anaerobic Bottle Gram positive cocci in chains Narrative: Less than seven (7) mL's of blood was collected. Insufficient quantity may yield false negative results. requested linezolid & daptomycin 06/28/25 Susceptibility Enterococcus faecium MURRAY Method Not Specified Ampicillin Susceptible Daptomycin Susceptible dose dependent Gentamicin High Level Synergy Susceptible Linezolid Susceptible (C) [1] Vancomycin Susceptible [1] Appended report. These results have been appended to a previously final verified report. Wound Culture - Swab, Foot, Left [[id number]] (Abnormal) (Susceptibility) Collected: 06/25/251817 Lab Status: Final result Specimen: Swab from Foot, Left Updated: 06/29/25 0645 Wound Culture Heavy growth (4+) Staphylococcus aureus, MRSA Comment: Methicillin resistant Staphylococcus aureus, Patient may be an isolation risk. Moderate growth (3+) Morganella morganii ssp morganii Moderate growth (3+) Proteus mirabilis ESBL Comment: Consider infectious disease consult. Susceptibility results may not correlate to clinical outcomes. Gram Stain Few (2+) WBCs seen Few (2+) Gram positive cocci in pairs, chains and clusters Few (2+) Gram negative bacilli Susceptibility Staphylococcus aureus, MRSA MURRAY Clindamycin Susceptible Erythromycin Resistant Oxacillin Resistant Rifampin Susceptible Tetracycline Susceptible Trimethoprim + Sulfamethoxazole Resistant Vancomycin Susceptible Susceptibility Morganella morganii ssp morganii MURRAY Method Not Specified Amoxicillin + Clavulanate Resistant Ampicillin Resistant Ampicillin + Sulbactam Resistant Cefazolin (Non Urine) Resistant Cefepime Susceptible Cefotaxime Susceptible Ceftazidime Susceptible Cefuroxime axetil Resistant Ciprofloxacin Resistant Gentamicin Susceptible Levofloxacin Resistant Piperacillin + Tazobactam Susceptible Tetracycline Susceptible Trimethoprim + Sulfamethoxazole Resistant Susceptibility Proteus mirabilis ESBL MURRAY Ciprofloxacin Resistant Ertapenem Susceptible Levofloxacin Resistant Meropenem Susceptible Tetracycline Resistant Trimethoprim + Sulfamethoxazole Resistant Susceptibility Comments Morganella morganii ssp morganii Cefotaxime susceptibility can be used as a surrogate for ceftriaxone susceptibility Proteus mirabilis ESBL With the exception of urinary-sourced infections, aminoglycosides should not be used as monotherapy. Blood Culture ID, PCR - Blood, Hand, Right [[id number]] (Abnormal) Collected: 06/25/252029 Lab Status: Final result Specimen: Blood from Hand, Right Updated: 06/26/252101 BCID, PCR Enterococcus faecium. Zee/B (vancomycin resistance gene) not detected. Identification byBCID2 PCR. BOTTLE TYPE Anaerobic Bottle Narrative: Infectious disease consultation is highly recommended to rule out distant foci of infection. MRSA Screen, PCR (Inpatient) - Swab, Nares [[id number]] (Abnormal) Collected: 06/26/2545 Lab Status: Final result Specimen: Swab from Nares Updated: 06/26/25 0850 MRSA PCR Positive Narrative: The negative predictive value of this diagnostic test is high and should only be used to consider de-escalating anti-MRSA therapy. A positive result may indicate colonization with MRSA and must be correlated clinically. Gastrointestinal Panel, PCR - Stool, Per Rectum [[id number]] (Abnormal) Collected: 06/26/2545 Lab Status: Final result Specimen: Stool from Per Rectum Updated: 06/26/25 0850 Campylobacter Not Detected Plesiomonas shigelloides Not Detected Salmonella Not Detected Vibrio Not Detected Vibrio cholerae Not Detected Yersinia enterocolitica Not Detected Enteroaggregative E. coli (EAEC) Not Detected Enteropathogenic E. coli (EPEC) Not Detected Enterotoxigenic E. coli (ETEC) lt/st Not Detected Shiga-like toxin-producing E. coli (STEC) stx1/stx2 Not Detected Shigella/Enteroinvasive E. coli (EIEC) Not Detected Cryptosporidium Not Detected Cyclospora cayetanensis Not Detected Entamoeba histolytica Not Detected Giardia lamblia Not Detected Adenovirus F40/41 Not Detected Astrovirus Not Detected Norovirus GI/GII Detected Comment: If a positive Norovirus result is inconsistent with clinical presentation, the positive Norovirus result should be confirmed using another method. Rotavirus A Not Detected Sapovirus (I, II, IV or V) Not Detected Clostridioides difficile Toxin - Stool, Per Rectum [[id number]] (Abnormal) Collected: 06/26/2545 Lab Status: Final result Specimen: Stool from Per Rectum Updated: 06/26/25 2542 Narrative: The following orders were created for panel order Clostridioides difficile Toxin - Stool, Per Rectum. Procedure Abnormality Status --------- ------ Clostridioides difficile...[[id number]] Abnormal Final result Please view results for these tests on the individual orders. Clostridioides difficile Toxin, PCR - Stool, Per Rectum [[id number]] (Abnormal) Collected: 06/26/25 0046 Lab Status: Final result Specimen: Stool from Per Rectum Updated: 06/26/25 0755 Toxigenic C. difficile by PCR Detected Narrative: DNA from a toxigenic strain of C.difficile has been detected. Microbiology Results Abnormal Procedure Component Value - Date/Time Urine Culture - Urine, Indwelling Urethral Catheter [[id number]] (Abnormal) (Susceptibility) Collected: 06/25/252000 Lab Status: Final result Specimen: Urine from Indwelling Urethral Catheter Updated: 06/30/25 1001 Urine Culture >100,000 CFU/mL Proteus mirabilis Narrative: Colonization of the urinary tract without infection is common. Treatment is discouraged unless the patient is symptomatic, , or undergoing an invasive urologic procedure. Susceptibility Proteus mirabilis MURRAY Amoxicillin + Clavulanate Susceptible Ampicillin Resistant Ampicillin + Sulbactam Intermediate Cefazolin (Urine) Resistant Cefepime Resistant Ceftazidime Susceptible Ceftriaxone Resistant Cefuroxime axetil Resistant Ciprofloxacin Resistant Gentamicin Susceptible Levofloxacin Resistant Nitrofurantoin Resistant Piperacillin + Tazobactam Susceptible Trimethoprim + Sulfamethoxazole Resistant Blood Culture - Blood, Hand, Right [[id number]] (Abnormal) (Susceptibility) Collected: 06/25/252029 Lab Status: Edited Result - FINAL Specimen: Blood from Hand, Right Updated: 06/29/25 0713 Blood Culture Enterococcus faecium Comment: Infectious disease consultation is highly recommended. Isolated from Anaerobic Bottle Gram Stain Anaerobic Bottle Gram positive cocci in chains Narrative: Less than seven (7) mL's of blood was collected. Insufficient quantity may yield false negative results. requested linezolid & daptomycin 06/28/25 Susceptibility Enterococcus faecium MURRAY Method Not Specified Ampicillin Susceptible Daptomycin Susceptible dose dependent Gentamicin High Level Synergy Susceptible Linezolid Susceptible (C) [1] Vancomycin Susceptible [1] Appended report. These results have been appended to a previously final verified report. Wound Culture - Swab, Foot, Left [[id number]] (Abnormal) (Susceptibility) Collected: 06/25/25 181 Lab Status: Final result Specimen: Swab from Foot, Left Updated: 06/29/25 0645 Wound Culture Heavy growth (4+) Staphylococcus aureus, MRSA Comment: Methicillin resistant Staphylococcus aureus, Patient may be an isolation risk. Moderate growth (3+) Morganella morganii ssp morganii Moderate growth (3+) Proteus mirabilis ESBL Comment: Consider infectious disease consult. Susceptibility results may not correlate to clinical outcomes. Gram Stain Few (2+) WBCs seen Few (2+) Gram positive cocci in pairs, chains and clusters Few (2+) Gram negative bacilli Susceptibility Staphylococcus aureus, MRSA MURRAY Clindamycin Susceptible Erythromycin Resistant Oxacillin Resistant Rifampin Susceptible Tetracycline Susceptible Trimethoprim + Sulfamethoxazole Resistant Vancomycin Susceptible Susceptibility Morganella morganii ssp morganii MURRAY Method Not Specified Amoxicillin + Clavulanate Resistant Ampicillin Resistant Ampicillin + Sulbactam Resistant Cefazolin (Non Urine) Resistant Cefepime Susceptible Cefotaxime Susceptible Ceftazidime Susceptible Cefuroxime axetil Resistant Ciprofloxacin Resistant Gentamicin Susceptible Levofloxacin Resistant Piperacillin + Tazobactam Susceptible Tetracycline Susceptible Trimethoprim + Sulfamethoxazole Resistant Susceptibility Proteus mirabilis ESBL MURRAY Ciprofloxacin Resistant Ertapenem Susceptible Levofloxacin Resistant Meropenem Susceptible Tetracycline Resistant Trimethoprim + Sulfamethoxazole Resistant Susceptibility Comments Morganella morganii ssp morganii Cefotaxime susceptibility can be used as a surrogate for ceftriaxone susceptibility Proteus mirabilis ESBL With the exception of urinary-sourced infections, aminoglycosides should not be used as monotherapy. Blood Culture ID, PCR - Blood, Hand, Right [[id number]] (Abnormal) Collected: 06/25/252029 Lab Status: Final result Specimen: Blood from Hand, Right Updated: 06/26/252101 BCID, PCR Enterococcus faecium. Zee/B (vancomycin resistance gene) not detected. Identification byBCID2 PCR. BOTTLE TYPE Anaerobic Bottle Narrative: Infectious disease consultation is highly recommended to rule out distant foci of infection. MRSA Screen, PCR (Inpatient) - Swab, Nares [[id number]] (Abnormal) Collected: 06/26/2545 Lab Status: Final result Specimen: Swab from Nares Updated: 06/26/25 0850 MRSA PCR Positive Narrative: The negative predictive value of this diagnostic test is high and should only be used to consider de-escalating anti-MRSA therapy. A positive result may indicate colonization with MRSA and must be correlated clinically. Gastrointestinal Panel, PCR - Stool, Per Rectum [[id number]] (Abnormal) Collected: 06/26/2545 Lab Status: Final result Specimen: Stool from Per Rectum Updated: 06/26/25 0850 Campylobacter Not Detected Plesiomonas shigelloides Not Detected Salmonella Not Detected Vibrio Not Detected Vibrio cholerae Not Detected Yersinia enterocolitica Not Detected Enteroaggregative E. coli (EAEC) Not Detected Enteropathogenic E. coli (EPEC) Not Detected Enterotoxigenic E. coli (ETEC) lt/st Not Detected Shiga-like toxin-producing E. coli (STEC) stx1/stx2 Not Detected Shigella/Enteroinvasive E. coli (EIEC) Not Detected Cryptosporidium Not Detected Cyclospora cayetanensis Not Detected Entamoeba histolytica Not Detected Giardia lamblia Not Detected Adenovirus F40/41 Not Detected Astrovirus Not Detected Norovirus GI/GII Detected Comment: If a positive Norovirus result is inconsistent with clinical presentation, the positive Norovirus result should be confirmed using another method. Rotavirus A Not Detected Sapovirus (I, II, IV or V) Not Detected Clostridioides difficile Toxin - Stool, Per Rectum [[id number]] (Abnormal) Collected: 06/26/2545 Lab Status: Final result Specimen: Stool from Per Rectum Updated: 06/26/25754 Narrative: The following orders were created for panel order Clostridioides difficile Toxin - Stool, Per Rectum. Procedure Abnormality Status --------- ------ Clostridioides difficile...[[id number]] Abnormal Final result Please view results for these tests on the individual orders. Clostridioides difficile Toxin, PCR - Stool, Per Rectum [[id number]] (Abnormal) Collected: 06/26/2545 Lab Status: Final result Specimen: Stool from Per Rectum Updated: 06/26/25754 Toxigenic C. difficile by PCR Detected Narrative: DNA from a toxigenic strain of C.difficile has been detected. Microbiology Results Abnormal Procedure Component Value - Date/Time Urine Culture - Urine, Indwelling Urethral Catheter [[id number]] (Abnormal) (Susceptibility) Collected: 06/25/252000 Lab Status: Final result Specimen: Urine from Indwelling Urethral Catheter Updated: 06/30/25 1001 Urine Culture >100,000 CFU/mL Proteus mirabilis Narrative: Colonization of the urinary tract without infection is common. Treatment is discouraged unless the patient is symptomatic, , or undergoing an invasive urologic procedure. Susceptibility Proteus mirabilis MURRAY Amoxicillin + Clavulanate Susceptible Ampicillin Resistant Ampicillin + Sulbactam Intermediate Cefazolin (Urine) Resistant Cefepime Resistant Ceftazidime Susceptible Ceftriaxone Resistant Cefuroxime axetil Resistant Ciprofloxacin Resistant Gentamicin Susceptible Levofloxacin Resistant Nitrofurantoin Resistant Piperacillin + Tazobactam Susceptible Trimethoprim + Sulfamethoxazole Resistant Blood Culture - Blood, Hand, Right [[id number]] (Abnormal) (Susceptibility) Collected: 06/25/25 2030 Lab Status: Edited Result - FINAL Specimen: Blood from Hand, Right Updated: 06/29/25 0713 Blood Culture Enterococcus faecium Comment: Infectious disease consultation is highly recommended. Isolated from Anaerobic Bottle Gram Stain Anaerobic Bottle Gram positive cocci in chains Narrative: Less than seven (7) mL's of blood was collected. Insufficient quantity may yield false negative results. requested linezolid & daptomycin 06/28/25 Susceptibility Enterococcus faecium MURRAY Method Not Specified Ampicillin Susceptible Daptomycin Susceptible dose dependent Gentamicin High Level Synergy Susceptible Linezolid Susceptible (C) [1] Vancomycin Susceptible [1] Appended report. These results have been appended to a previously final verified report. Wound Culture - Swab, Foot, Left [[id number]] (Abnormal) (Susceptibility) Collected: 06/25/25 1818 Lab Status: Final result Specimen: Swab from Foot, Left Updated: 06/29/25 0645 Wound Culture Heavy growth (4+) Staphylococcus aureus, MRSA Comment: Methicillin resistant Staphylococcus aureus, Patient may be an isolation risk. Moderate growth (3+) Morganella morganii ssp morganii Moderate growth (3+) Proteus mirabilis ESBL Comment: Consider infectious disease consult. Susceptibility results may not correlate to clinical outcomes. Gram Stain Few (2+) WBCs seen Few (2+) Gram positive cocci in pairs, chains and clusters Few (2+) Gram negative bacilli Susceptibility Staphylococcus aureus, MRSA MURRAY Clindamycin Susceptible Erythromycin Resistant Oxacillin Resistant Rifampin Susceptible Tetracycline Susceptible Trimethoprim + Sulfamethoxazole Resistant Vancomycin Susceptible Susceptibility Morganella morganii ssp morganii MURRAY Method Not Specified Amoxicillin + Clavulanate Resistant Ampicillin Resistant Ampicillin + Sulbactam Resistant Cefazolin (Non Urine) Resistant Cefepime Susceptible Cefotaxime Susceptible Ceftazidime Susceptible Cefuroxime axetil Resistant Ciprofloxacin Resistant Gentamicin Susceptible Levofloxacin Resistant Piperacillin + Tazobactam Susceptible Tetracycline Susceptible Trimethoprim + Sulfamethoxazole Resistant Susceptibility Proteus mirabilis ESBL MURRAY Ciprofloxacin Resistant Ertapenem Susceptible Levofloxacin Resistant Meropenem Susceptible Tetracycline Resistant Trimethoprim + Sulfamethoxazole Resistant Susceptibility Comments Morganella morganii ssp morganii Cefotaxime susceptibility can be used as a surrogate for ceftriaxone susceptibility Proteus mirabilis ESBL With the exception of urinary-sourced infections, aminoglycosides should not be used as monotherapy. Blood Culture ID, PCR - Blood, Hand, Right [[id number]] (Abnormal) Collected: 06/25/252029 Lab Status: Final result Specimen: Blood from Hand, Right Updated: 06/26/252101 BCID, PCR Enterococcus faecium. Zee/B (vancomycin resistance gene) not detected. Identification byBCID2 PCR. BOTTLE TYPE Anaerobic Bottle Narrative: Infectious disease consultation is highly recommended to rule out distant foci of infection. MRSA Screen, PCR (Inpatient) - Swab, Nares [[id number]] (Abnormal) Collected: 06/26/2545 Lab Status: Final result Specimen: Swab from Nares Updated: 06/26/2550 MRSA PCR Positive Narrative: The negative predictive value of this diagnostic test is high and should only be used to consider de-escalating anti-MRSA therapy. A positive result may indicate colonization with MRSA and must be correlated clinically. Gastrointestinal Panel, PCR - Stool, Per Rectum [[id number]] (Abnormal) Collected: 06/26/2545 Lab Status: Final result Specimen: Stool from Per Rectum Updated: 06/26/25 0850 Campylobacter Not Detected Plesiomonas shigelloides Not Detected Salmonella Not Detected Vibrio Not Detected Vibrio cholerae Not Detected Yersinia enterocolitica Not Detected Enteroaggregative E. coli (EAEC) Not Detected Enteropathogenic E. coli (EPEC) Not Detected Enterotoxigenic E. coli (ETEC) lt/st Not Detected Shiga-like toxin-producing E. coli (STEC) stx1/stx2 Not Detected Shigella/Enteroinvasive E. coli (EIEC) Not Detected Cryptosporidium Not Detected Cyclospora cayetanensis Not Detected Entamoeba histolytica Not Detected Giardia lamblia Not Detected Adenovirus F40/41 Not Detected Astrovirus Not Detected Norovirus GI/GII Detected Comment: If a positive Norovirus result is inconsistent with clinical presentation, the positive Norovirus result should be confirmed using another method. Rotavirus A Not Detected Sapovirus (I, II, IV or V) Not Detected Clostridioides difficile Toxin - Stool, Per Rectum [[id number]] (Abnormal) Collected: 06/26/2545 Lab Status: Final result Specimen: Stool from Per Rectum Updated: 06/26/25754 Narrative: The following orders were created for panel order Clostridioides difficile Toxin - Stool, Per Rectum. Procedure Abnormality Status --------- ------ Clostridioides difficile...[[id number]] Abnormal Final result Please view results for these tests on the individual orders. Clostridioides difficile Toxin, PCR - Stool, Per Rectum [[id number]] (Abnormal) Collected: 06/26/2545 Lab Status: Final result Specimen: Stool from Per Rectum Updated: 06/26/25754 Toxigenic C. difficile by PCR Detected Narrative: DNA from a toxigenic strain of C.difficile has been detected. Microbiology Results Abnormal Procedure Component Value - Date/Time Urine Culture - Urine, Indwelling Urethral Catheter [[id number]] (Abnormal) (Susceptibility) Collected: 06/25/252000 Lab Status: Final result Specimen: Urine from Indwelling Urethral Catheter Updated: 06/30/25 1001 Urine Culture >100,000 CFU/mL Proteus mirabilis Narrative: Colonization of the urinary tract without infection is common. Treatment is discouraged unless the patient is symptomatic, , or undergoing an invasive urologic procedure. Susceptibility Proteus mirabilis MURRAY Amoxicillin + Clavulanate Susceptible Ampicillin Resistant Ampicillin + Sulbactam Intermediate Cefazolin (Urine) Resistant Cefepime Resistant Ceftazidime Susceptible Ceftriaxone Resistant Cefuroxime axetil Resistant Ciprofloxacin Resistant Gentamicin Susceptible Levofloxacin Resistant Nitrofurantoin Resistant Piperacillin + Tazobactam Susceptible Trimethoprim + Sulfamethoxazole Resistant Blood Culture - Blood, Hand, Right [[id number]] (Abnormal) (Susceptibility) Collected: 06/25/252029 Lab Status: Edited Result - FINAL Specimen: Blood from Hand, Right Updated: 06/29/25 0713 Blood Culture Enterococcus faecium Comment: Infectious disease consultation is highly recommended. Isolated from Anaerobic Bottle Gram Stain Anaerobic Bottle Gram positive cocci in chains Narrative: Less than seven (7) mL's of blood was collected. Insufficient quantity may yield false negative results. requested linezolid & daptomycin 06/28/25 Susceptibility Enterococcus faecium MURRAY Method Not Specified Ampicillin Susceptible Daptomycin Susceptible dose dependent Gentamicin High Level Synergy Susceptible Linezolid Susceptible (C) [1] Vancomycin Susceptible [1] Appended report. These results have been appended to a previously final verified report. Wound Culture - Swab, Foot, Left [[id number]] (Abnormal) (Susceptibility) Collected: 06/25/25 1818 Lab Status: Final result Specimen: Swab from Foot, Left Updated: 06/29/25 0645 Wound Culture Heavy growth (4+) Staphylococcus aureus, MRSA Comment: Methicillin resistant Staphylococcus aureus, Patient may be an isolation risk. Moderate growth (3+) Morganella morganii ssp morganii Moderate growth (3+) Proteus mirabilis ESBL Comment: Consider infectious disease consult. Susceptibility results may not correlate to clinical outcomes. Gram Stain Few (2+) WBCs seen Few (2+) Gram positive cocci in pairs, chains and clusters Few (2+) Gram negative bacilli Susceptibility Staphylococcus aureus, MRSA MURRAY Clindamycin Susceptible Erythromycin Resistant Oxacillin Resistant Rifampin Susceptible Tetracycline Susceptible Trimethoprim + Sulfamethoxazole Resistant Vancomycin Susceptible Susceptibility Morganella morganii ssp morganii MURRAY Method Not Specified Amoxicillin + Clavulanate Resistant Ampicillin Resistant Ampicillin + Sulbactam Resistant Cefazolin (Non Urine) Resistant Cefepime Susceptible Cefotaxime Susceptible Ceftazidime Susceptible Cefuroxime axetil Resistant Ciprofloxacin Resistant Gentamicin Susceptible Levofloxacin Resistant Piperacillin + Tazobactam Susceptible Tetracycline Susceptible Trimethoprim + Sulfamethoxazole Resistant Susceptibility Proteus mirabilis ESBL MURRAY Ciprofloxacin Resistant Ertapenem Susceptible Levofloxacin Resistant Meropenem Susceptible Tetracycline Resistant Trimethoprim + Sulfamethoxazole Resistant Susceptibility Comments Morganella morganii ssp morganii Cefotaxime susceptibility can be used as a surrogate for ceftriaxone susceptibility Proteus mirabilis ESBL With the exception of urinary-sourced infections, aminoglycosides should not be used as monotherapy. Blood Culture ID, PCR - Blood, Hand, Right [[id number]] (Abnormal) Collected: 06/25/252029 Lab Status: Final result Specimen: Blood from Hand, Right Updated: 06/26/252101 BCID, PCR Enterococcus faecium. Zee/B (vancomycin resistance gene) not detected. Identification byBCID2 PCR. BOTTLE TYPE Anaerobic Bottle Narrative: Infectious disease consultation is highly recommended to rule out distant foci of infection. MRSA Screen, PCR (Inpatient) - Swab, Nares [[id number]] (Abnormal) Collected: 06/26/2545 Lab Status: Final result Specimen: Swab from Nares Updated: 06/26/25 0850 MRSA PCR Positive Narrative: The negative predictive value of this diagnostic test is high and should only be used to consider de-escalating anti-MRSA therapy. A positive result may indicate colonization with MRSA and must be correlated clinically. Gastrointestinal Panel, PCR - Stool, Per Rectum [[id number]] (Abnormal) Collected: 06/26/2545 Lab Status: Final result Specimen: Stool from Per Rectum Updated: 06/26/25 0850 Campylobacter Not Detected Plesiomonas shigelloides Not Detected Salmonella Not Detected Vibrio Not Detected Vibrio cholerae Not Detected Yersinia enterocolitica Not Detected Enteroaggregative E. coli (EAEC) Not Detected Enteropathogenic E. coli (EPEC) Not Detected Enterotoxigenic E. coli (ETEC) lt/st Not Detected Shiga-like toxin-producing E. coli (STEC) stx1/stx2 Not Detected Shigella/Enteroinvasive E. coli (EIEC) Not Detected Cryptosporidium Not Detected Cyclospora cayetanensis Not Detected Entamoeba histolytica Not Detected Giardia lamblia Not Detected Adenovirus F40/41 Not Detected Astrovirus Not Detected Norovirus GI/GII Detected Comment: If a positive Norovirus result is inconsistent with clinical presentation, the positive Norovirus result should be confirmed using another method. Rotavirus A Not Detected Sapovirus (I, II, IV or V) Not Detected Clostridioides difficile Toxin - Stool, Per Rectum [[id number]] (Abnormal) Collected: 06/26/2545 Lab Status: Final result Specimen: Stool from Per Rectum Updated: 06/26/25 7786 Narrative: The following orders were created for panel order Clostridioides difficile Toxin - Stool, Per Rectum. Procedure Abnormality Status --------- ------ Clostridioides difficile...[[id number]] Abnormal Final result Please view results for these tests on the individual orders. Clostridioides difficile Toxin, PCR - Stool, Per Rectum [[id number]] (Abnormal) Collected: 06/26/2545 Lab Status: Final result Specimen: Stool from Per Rectum Updated: 06/26/25 0755 Toxigenic C. difficile by PCR Detected Narrative: DNA from a toxigenic strain of C.difficile has been detected. No radiology results from the last 24 hrs Results for orders placed during the hospital encounter of 08/31/24 Adult Transthoracic Echo Complete W/ Cont if Necessary Per Protocol 09/12/2024 4:10 PM Interpretation Summary ??? Left ventricular systolic function is normal. Calculated left ventricular EF = 52.5% ??? There is a trivial pericardial effusion. ??? The aortic valve exhibits sclerosis. ??? Mitral annular calcification is present. I have personally reviewed the therapy plans: [x] PT/OT/ ST Therapy Plans Current medications: Scheduled Meds:acetaminophen, 1,000 mg, Oral, Q8H apixaban, 5 mg, Oral, BID vitamin C, 500 mg, Oral, Daily baclofen, 10 mg, Oral, Q12H carvedilol, 3.125 mg, Oral, BID With Meals clopidogrel, 75 mg, Oral, Daily famotidine, 20 mg, Oral, BID AC finasteride, 5 mg, Oral, Daily folic acid, 1 mg, Oral, Daily gabapentin, 600 mg, Oral, Q8H insulin glargine, 40 Units, Subcutaneous, Nightly lamoTRIgine, 100 mg, Oral, Daily lamoTRIgine, 250 mg, Oral, Nightly meropenem, 500 mg, Intravenous, Q6H methenamine, 1 g, Oral, BID With Meals mirtazapine, 15 mg, Oral, Nightly multivitamin with minerals, 1 tablet, Oral, Daily OLANZapine zydis, 5 mg, Oral, Nightly sacubitril-valsartan, 1 tablet, Oral, BID sodium chloride, 10 mL, Intravenous, Q12H sodium chloride, 10 mL, Intravenous, Q12H vancomycin (dosing per levels), , Not Applicable, Daily vancomycin, 125 mg, Oral, TID Followed by [START ON 07/17/2025] vancomycin, 125 mg, Oral, BID Followed by [START ON 07/25/2025] vancomycin, 125 mg, Oral, Daily Followed by [START ON 08/01/2025] vancomycin, 125 mg, Oral, Weekly Continuous Infusions:Pharmacy to dose vancomycin, PRN Meds:.??? aluminum-magnesium hydroxide-simethicone ??? senna-docusate sodium AND polyethylene glycol AND bisacodyl AND bisacodyl ??? Calcium Replacement - Follow Nurse / BPA Driven Protocol ??? diphenhydrAMINE-zinc acetate ??? influenza vaccine ??? ipratropium-albuterol ??? Magnesium Cardiology Dose Replacement - Follow Nurse / BPA Driven Protocol ??? [DISCONTINUED] Morphine AND naloxone ??? nitroglycerin ??? ondansetron ??? oxyCODONE ??? Pharmacy to dose vancomycin ??? Phosphorus Replacement - Follow Nurse / BPA Driven Protocol ??? Potassium Replacement - Follow Nurse / BPA Driven Protocol ??? Insert Peripheral IV AND sodium chloride ??? sodium chloride ??? sodium chloride ??? sodium chloride ??? sodium chloride Assessment & Plan Assessment & Plan Active Hospital Problems Diagnosis POA ??? Gastroenteritis due to norovirus [A08.11] Yes ??? Acute UTI (urinary tract infection) [N39.0] Yes ??? Diarrhea of presumed infectious origin [R19.7] Yes ??? Acute on chronic blood loss anemia [D62] Yes ??? BPH without obstruction/lower urinary tract symptoms [N40.0] Yes ??? GERD without esophagitis [K21.9] Yes ??? Bilateral inguinal hernia [K40.20] Yes ??? Cellulitis [L03.90] Yes ??? Type 2 diabetes mellitus, with long-term current use of insulin [E11.9, Z79.4] Not Applicable ??? Wound infection [T14.8XXA, L08.9] Unknown ??? PAD (peripheral artery disease) [I73.9] Yes ??? Coronary artery disease involving [place] coronary artery of [place] heart without angina pectoris [I25.10] Yes ??? Seizure disorder [G40.909] Yes ??? Primary hypertension [I10] Yes Resolved Hospital Problems No resolved problems to display. Brief Hospital Course to date: Trung Pool is a 70 y.o. male with a past medical history of coronary artery disease, peripheral artery disease, type 2 diabetes mellitus (on insulin), right above-knee amputation, and seizure disorder, who was admitted with hematuria, left foot stump drainage, fatigue, and diarrhea. Workup notable for norovirus and Enterococcus bacteremia. Urology, Infectious disease and vascular surgery consulted while inpatient. Planning for left lower extremity debridement and possible wound VAC placement with vascular surgery. This patient's problems and plans were partially entered by my partner and updated as appropriate by me 07/10/25. Severe PAD History of right BKA, LLE revascularization and toe amputation Cellulitis and Left Lower Extremity Wound MRSA + Enterococcus bacteremia MRI L foot showing edema in the distal first and second metatarsal diaphyses at the resection margins, osteomyelitis is not excluded, diffuse soft tissue edema and skin thickening about the remainingfoot. No definite abscess noted. Nondisplaced intra-articular fracture of the distal tibia with associated marrow edema. Follow-up CT angio left lower extremity revealing with moderate focal narrowing at the junction of the SFA and the popliteal artery. 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 Patency of the anterior and posterior tibial arteries difficult to assess due to significant venous contamination and heavy calcification. Left lower extremity arterial dopplers abnormal waveforms suggest inflow disease. Moderate 60% stenosis in the left SFA, the left CHIP appears to be occluded filling vis collaterals retrograde Blood cultures positive for Enterococcus faecium Infectious disease consulted, continue IV merrem, IV/PO vancomycin Vascular surgery consulted in the evaluation follows with Dr. Marcano; recommending more debridement of LLE with wound vac placement; on 07/03/2025 Resume Plavix and DVT ppx, Eliquis Patient has been adamant about not having any more amputation Palliative care on board to assist with pain management Patient is fearful regarding amputation, does not want to go to a [facility], states that if we can avoid sending him to [facility] he may be agreeable to amputation. He is agreeable for short course of rehab/SNF after amputation however he states he does not want to but if ultimately he will end up in [facility] then he just wants to go home with hospice. Asked PT/OT and case management to discuss again with patient regarding his options if he chose amputation. PT states patient was conflicted and needs more time to consider. Encouraged to continue all treatment at this time until official decision to go home with Hospice is made, as patient has refused medications and labs at times Acute UTI and hematuria History of BPH CT imaging revealed moderate bladder distention, small amount of gas in the bladder, and mildly decreased bladder wall thickening compared to prior exam. H&H stable, resumed eliquis 07/07 Urology consultation, continue de los santos and finasteride. Plan to follow up outpatient for lobsterman bladder management Norovirus GI PCR panel with norovirus, C. difficile toxin is positive but antigen negative suggest colonization CT imaging suggestive of proctitis Continue antibiotics as above, ID consulted and are following Acute on Chronic anemia, possible blood loss Continue to monitor H&H, stable, resumed eliqius Transfuse PRBC if hemoglobin <7 Type 2 diabetes Transient hypoglycemia Previously well-controlled with A1c 7.6 (08/2024), A1c 7.82 Adjusting insulin regimen Seizure disorder History of pseudoseizures Continue lamotrigine Addendum: Seizure like activity noted upon awaking from procedure. Aborted with propofol and versed. My partner Discussed with general neurology over the phone. Recommended PRN ativan for now and outpatient follow up with Dr. Anand as seizures are likely 2/2 anesthesia/procedure. S/p EEG. If seizurelike activity recurs while inpatient, recommended loading with 1g of Keppra and placing general neurology consult. No recurrence of pseudoseizure GERD without Esophagitis PPI Bilateral Inguinal Hernia, incidental finding on CT CT imaging revealed bilateral inguinal hernias, larger on the left containing a partial loop of sigmoid colon, without proximal dilatation. General surgery consult; recommend watchful waiting, poor operative candidate for an elective procedure while asymptomatic, and has signed off Expected Discharge Location and Transportation: rehab vs home with Hospice Expected Discharge Expected Discharge Date: 07/10/2025; Expected Discharge Time: VTE Prophylaxis: Pharmacologic VTE prophylaxis orders are present. AM-PAC 6 Clicks Score (PT): 10 (07/10/25 1531) CODE STATUS: Code Status and Medical Interventions: CPR (Attempt to Resuscitate); Full Support Ordered at: 06/25/25 6690 Code Status (Patient has no pulse and is not breathing): CPR (Attempt to Resuscitate) Medical Interventions (Patient has pulse or is breathing): Full Support Level Of Support Discussed With: Patient Chinyere Hensley APRN 07/10/25 * Annie Huber, MS,RD,LD - 07/10/2025 4:01 PM EDT Patient Name: Trung Pool Date of : 1955 Admission date: 06/25/2025 Reason for Encounter: Follow-up/Progress Note [facility] Clinical Nutrition Assessment Subjective Subjective Information 07/10 Pt resting in bed, RN at bedside. Pt states his appetite is the same, endorses drinking Boost BID. 07/04 Spoke with pt at bedside. Pt stated that his appetite is okay , and he has been drinking his BoostONS. Pt did not have any nutrition preferences or concerns at this time. 06/26 Pt resting in bed at time of visit, finished breakfast tray (RD observed pt ate ~50%). Pt states hehas not had an appetite x last ~1 month-notes recent hospital admit. Pt states he is eating about half of usual intake and in the past 9 days has had ongoing diarrhea which has caused him to eat evenless. Pt states he has had 14lb wt loss from UBW of 265lbs over the past month as well. Pt states he usually drinks Boost at home, is willing to drink while here. Pt notes food preferences. Objective H&P and Current Problems H&P Past [...] 2 MIN 54 SEC, DOSE: 66 MGY. AORTOGRAM Left 07/03/2025 Procedure: ARTERIOGRAM LOWER EXTREMITY; Surgeon: Vaughn Hollingsworth DO; Location: [facility]; Service: Vascular; Laterality: Left; FT-6MINS 24SEC 140 MGY CONTRAST -15ML BACK SURGERY FOR DISC HERNIATION CARDIAC CATHETERIZATION [...] Location: [facility]; Service: Orthopedics; Laterality: Left; INCISION AND DRAINAGE LEG Left 07/03/2025 Procedure: DEBRIDEMENT WOUND, PLACEMENT OF WOUND VAC; Surgeon: Vaughn Hollingsworth DO; Location: [facility]; Service: Vascular; Laterality: Left; INTERVENTIONAL RADIOLOGY PROCEDURE N/A 05/02/2019 Procedure: IVC FILTER PLACEMENT; Surgeon: Pedro Zapien MD; Location: [facility]; Service: Interventional Radiology INTERVENTIONAL RADIOLOGY PROCEDURE Left 09/07/2024 Procedure: LEFT peroneal arteriovenous fistula embolization - Right femoral access; Surgeon: Jared Marcano MD; Location: [facility]; Service: Cardiovascular; Laterality: Left; Please coordinate with Gautam Patel ([facility] [phone] who will bring coils LUMBAR DISCECTOMY N/A 05/03/2019 Procedure: THORACIC LAMINECTOMY T11-12; Surgeon: Tyree Tan MD; Location: [facility]; Service: Neurosurgery Current Problems Admission Diagnosis: Cellulitis [L03.90] Problem List: Gastroenteritis due to norovirus Primary hypertension Seizure disorder Coronary artery disease involving [place] coronary artery of [place] heart without angina pectoris PAD (peripheral artery disease) Wound infection Type 2 diabetes mellitus, with long-term current use of insulin Cellulitis Acute UTI (urinary tract infection) Diarrhea of presumed infectious origin Acute on chronic blood loss anemia BPH without obstruction/lower urinary tract symptoms GERD without esophagitis Bilateral inguinal hernia Applicable Nutrition Hx Historical R BKA Anthropometrics Height: 182.9 cm (72 ) Weight: 117 kg (258 lb 14.4 oz) (07/09/25 0600) Weight Method: Bed scale BMI (Calculated): 35.1 Trending Weight Changes 06/26/25: Unknown/Unable to Determine, pt reporting 14lb wt loss x 1 month however previously only stated wts 17lb/6.4% x ? 10 months Weight History Wt Readings from Last 10 Encounters: 07/09/25 0600 117 kg (258 lb 14.4 oz) 07/05/25 0600 117 kg (258 lb 13.1 oz) 07/03/25 1135 114 kg (251 lb) 07/02/25 0500 118 kg (259 lb 11.2 oz) 06/30/25 0600 117 kg (257 lb 0.9 oz) 06/29/25 0547 117 kg (257 lb 4.4 oz) 06/28/25 0520 116 kg (255 lb 8 oz) 06/26/25 0054 114 kg (251 lb 5.2 oz) 06/25/25 1814 120 kg (265 lb) 06/02/25 0932 120 kg (265 lb) 09/01/24 1128 122 kg (268 lb) 08/31/24 1756 122 kg (268 lb 14.4 oz) 08/31/24 1244 113 kg (250 lb) 01/15/24 1509 135 kg (297 lb) 01/15/24 1508 135 kg (297 lb 9.9 oz) 09/01/23 0558 135 kg (296 lb 12.8 oz) 08/31/23 2208 129 kg (285 lb) 08/03/23 2000 130 kg (285 lb 15 oz) 07/23/23 0147 127 kg (279 lb 3.2 oz) 07/22/23 1945 120 kg (265 lb) 07/14/23 0529 (!) 175 kg (384 lb 12.8 oz) 07/12/23 1240 (!) 175 kg (385 lb 5.8 oz) 07/09/23 0500 (!) 177 kg (390 lb 3.4 oz) 07/08/23 1604 122 kg (268 lb) 07/08/23 1523 122 kg (268 lb 15.4 oz) 07/07/23 1329 122 kg (270 lb) 06/24/23 1228 126 kg (277 lb 6.4 oz) 06/16/23 0436 130 kg (287 lb 3.2 oz) 06/14/23 1707 128 kg (283 lb) 06/14/23 1706 128 kg (283 lb) 06/13/23 2333 129 kg (283 lb 11.2 oz) 06/13/23 1651 120 kg (265 lb) 06/21/22 1825 102 kg (224 lb 14.4 oz) 06/21/22 0922 99.8 kg (220 lb) Labs Results from last 7 days Lab Units 07/09/25 0712 07/08/25 1418 07/08/25 0542 07/07/25 0343 SODIUM mmol/L 136 136 131* 134* POTASSIUM mmol/L 5.8* 5.9* 6.0* 5.2 GLUCOSE mg/dL 53* 89 120* 171* BUN mg/dL 21.6 18.7 19.5 18.3 CREATININE mg/dL 1.05 0.91 0.94 1.02 CALCIUM mg/dL 8.7 8.8 8.5* 8.6 MAGNESIUM mg/dL 2.1 -- 2.2 2.0 Results from last 7 days Lab Units 07/09/25 0712 07/08/25 0542 07/07/25 0343 PLATELETS 10*3/mm3 278 281 275 HEMOGLOBIN g/dL 9.5* 9.7* 9.3* HEMATOCRIT % 30.7* 35.5* 30.9* Lab Results Component Value Date HGBA1C 7.82 (H) 06/26/2025 Medications Scheduled Medications acetaminophen, 1,000 mg, Oral, Q8H apixaban, 5 mg, Oral, BID vitamin C, 500 mg, Oral, Daily baclofen, 10 mg, Oral, Q12H carvedilol, 3.125 mg, Oral, BID With Meals clopidogrel, 75 mg, Oral, Daily famotidine, 20 mg, Oral, BID AC finasteride, 5 mg, Oral, Daily folic acid, 1 mg, Oral, Daily gabapentin, 600 mg, Oral, Q8H insulin glargine, 40 Units, Subcutaneous, Nightly lamoTRIgine, 100 mg, Oral, Daily lamoTRIgine, 250 mg, Oral, Nightly meropenem, 500 mg, Intravenous, Q6H methenamine, 1 g, Oral, BID With Meals mirtazapine, 15 mg, Oral, Nightly multivitamin with minerals, 1 tablet, Oral, Daily OLANZapine zydis, 5 mg, Oral, Nightly sacubitril-valsartan, 1 tablet, Oral, BID sodium chloride, 10 mL, Intravenous, Q12H sodium chloride, 10 mL, Intravenous, Q12H vancomycin (dosing per levels), , Not Applicable, Daily vancomycin, 125 mg, Oral, TID Followed by [START ON 07/17/2025] vancomycin, 125 mg, Oral, BID Followed by [START ON 07/25/2025] vancomycin, 125 mg, Oral, Daily Followed by [START ON 08/01/2025] vancomycin, 125 mg, Oral, Weekly Infusions Pharmacy to dose vancomycin, PRN Medications aluminum-magnesium hydroxide-simethicone senna-docusate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 of arms/legs. No new back pain. Neuro-- No acute focal weakness or numbness in the arms or legs. Chronically debilitated Full 12 point review of systems reviewed and negative otherwise for acute complaints, except for above Physical Exam: Vital Signs BP 152/68 (BP Location: Left arm, Patient Position: Lying) Pulse 73 Temp 97 ??F (36.1 ??C) Resp 18 Ht 182.9 cm (72 ) Wt 117 kg (258 lb 14.4 oz) SpO2 97% BMI 35.11 kg/m?? GENERAL: sleepy HEENT: Normocephalic, atraumatic. No conjunctival injection. No [...] or HSM. EXT: see below : With De Los Santos catheter. MSK: FROM without joint effusions noted arms/legs. SKIN: Warm and dry without cutaneous eruptions on Inspection/palpation. NEURO: sleepy Left foot amputation noted surgical site covered. Vague erythema from mid burrell to foot with some light scale but no discrete mass bulge or fluctuance. No crepitus or bulla Right side amputation no obvious open wound or new redness/induration Laboratory Data Results from last 7 days Lab Units 07/09/25 0712 07/08/25 0542 07/07/25 0343 WBC 10*3/mm3 9.80 7.37 7.72 HEMOGLOBIN g/dL 9.5* 9.7* 9.3* HEMATOCRIT % 30.7* 35.5* 30.9* PLATELETS 10*3/mm3 278 281 275 Results from last 7 days Lab Units 07/09/25 0712 SODIUM mmol/L 136 POTASSIUM mmol/L 5.8* CHLORIDE mmol/L 106 CO2 mmol/L 21.8* BUN mg/dL 21.6 CREATININE mg/dL 1.05 GLUCOSE mg/dL 53* CALCIUM mg/dL 8.7 Estimated Creatinine Clearance: 85.2 mL/min (by C-G formula based on SCr of 1.05 mg/dL). Microbiology: Radiology: Imaging Results (Last 72 Hours) No results found for the last 72 hours. Impression: --acute left lower leg/foot cellulitis and wound infection, prior culture July 2024 with ESBL Klebsiella pneumoniae and pseudomonas aeruginosa, pseudomonas was sensitive to Merrem per microbiology lab at [facility]. Cx at [facility] as below; He has had multiple surgeries and multiple p ractitioners recommend higher level amputation which he has refused. On prior admissions, he has refused outpatient IV antibiotics and he has refused placement for longer durations of IV antibiotics.This refusal of care has placed him at increased risk for poor outcome. Earlier in 2024 he was discharged to the care of Dr. Oneal, his outpatient ID doctor and Dr Faust his automobile travel club counselor for furthercare/workup ; readmission May 2025 and June 2025 with acute worsening in redness/drainage to left lower extremity. High risk for further serious morbidity and other serious sequela includingpersistent/recurrent or nonhealing wounds, persistent/progressive or recurrent infection and risk for further functional/limb loss, higher-level amputation and other dire consequences including sepsis/mortalityetc. he remains opposed to amputation; he voices understanding his poor prognosis overallincluding risks for dire consequences; past Cx with MRSA/PSA/ESBL at prior admissions; culture June 02, 2025 with Proteus/MRSA/PSA; Cx June 2025 below; further imaging no definitive osteomyelitis but also unable to exclude per radiology at distal first/second [facility]; surgery with I&D 07/03 but no further bone debridement/amputation --E Faecium bacteremia ; NOT vanco resistant; ?foot source -v- other --Acute hematuria/UTI with chronic indwelling De Los Santos catheter. Proteus in culture so far; nursing reports De Los Santos catheter has been changed since admission; urology evaluation for further consideration of cystoscopy versus SP catheter or other; urine microscopic with yeast and potential for yeast colon ization/contaminant --Acute diarrhea, Norovirus + and C. Difficile PCR +, although toxin antigen negative. He has risk for active disease and does have symptomatology and requires antibiotics for other processes, and therefore oral vancomycin added although unable to definitively confirm active disease with toxin antigen negative ( although risk for false negative); supportive care ongoing --MRSA surveillance + --Peripheral arterial disease by past evaluation of vascular team in addition to history DVT. 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; postop after 07/03 surgery with decreased LOC, seen bymedicine and adjustments per them in medications; further neuro workup per medicine / neuro team; awake/interactive as of my 07/05 visit --Hx QTc > 500 ms on prior EKG PLAN: --IV vancomycin/merrem, oral vancomycin; likely to need IV abx in light of bacteremia/abnormal MRI;final duration could depend on his surgical decisions, if he has BKA/AKA then he may not need quiteas long a duration of antibiotics in light of focus removal at that point; he would need to finish duration for bacteremia; again, final duration to depend on clinical course/surgical plans/patient goals of care etc. wound culture June 02, 2025 with Proteus /MRSA, PSA urine culture June 02, 2025 E Coli/ESBL Proteus urine culture 06/25 proteus blood culture 06/25 E Faecium vanco/amp sensitive; dapto sens but dose dependent wound culture 06/25 (surface) with MRSA and ESBL proteus and morganella --Check/review labs cultures and scans --Partial history Per nursing staff --d/w pharmacy/Dr Alcantara/ multidisciplinary team with respect to complexity above/below [...] transitions of care for this complex patient. Duglas Andres MD 07/10/2025 [1] Allergies Allergen Reactions Keppra [Levetiracetam] Other (See Comments) Acute psychosis Bupropion Unknown (See Comments) Codeine Nausea Only Hydrocodone Unknown (See Comments) Ketorolac Tromethamine Unknown (See Comments) [2] Current Facility-Administered Medications Medication Dose Route Frequency Provider Last Rate Last Admin acetaminophen (TYLENOL) tablet 650 mg 650 mg Oral Q4H PRN Amanda Bermudez MD 650 mg at 06/29/25 0343 Or acetaminophen (TYLENOL) 160 MG/5ML oral solution 650 mg 650 mg Oral Q4H PRN Amanda Bermudez MD Or acetaminophen (TYLENOL) suppository 650 mg 650 mg Rectal Q4H PRN Amanda Bermudez MD aluminum-magnesium hydroxide-simethicone (MAALOX MAX) 400-400-40 MG/5ML suspension 15 mL 15 mL [id number] PRN Amanda Bermudez MD [Held by provider] apixaban (ELIQUIS) tablet 5 mg 5 mg Oral BID Amanda Bermudez MD ascorbic acid (VITAMIN C) tablet 500 mg 500 mg Oral Daily Amanda Bermudez MD 500 mg at 07/01/25 0830 baclofen (LIORESAL) tablet 10 mg 10 mg Oral Q12H Amanda Bermudez MD 10 mg at 07/01/25 2144 sennosides-docusate (PERICOLACE) 8.6-50 MG per tablet 2 tablet 2 tablet Oral BID PRN Amanda Bermudez MD And polyethylene glycol (MIRALAX) packet 17 g 17 g Oral Daily PRN Amanda Bermudez MD And bisacodyl (DULCOLAX) EC tablet 5 mg 5 mg Oral Daily PRN Amanda Bermudez MD And bisacodyl (DULCOLAX) suppository 10 mg 10 mg Rectal Daily PRN Amanda Bermudez MD Calcium Replacement - Follow Nurse / BPA Driven Protocol Not Applicable PRN Amanda Bermudez MD carvedilol (COREG) tablet 3.125 mg 3.125 mg Oral BID With Meals Amanda Bermudez MD 3.125 mg at 07/01/25 1712 clopidogrel (PLAVIX) tablet 75 mg 75 mg Oral Daily Amanda Bermudez MD 75 mg at 07/01/25 0830 famotidine (PEPCID) tablet 20 mg 20 mg Oral BID AC Arnoldo Crews PharmD 20 mg at 07/02/25 0649 finasteride (PROSCAR) tablet 5 mg 5 mg Oral Daily Amanda Bermudez MD 5 mg at 07/01/25 0830 folic acid (FOLVITE) tablet 1 mg 1 mg Oral Daily Amanda Bermudez MD 1 mg at 07/01/25 0830 gabapentin (NEURONTIN) capsule 300 mg 300 mg Oral Q8H Milena Jo APRN 300 mg at 07/02/25 0649 heparin (porcine) 5000 UNIT/ML injection 5,000 Units 5,000 Units Subcutaneous Q8H AlbertLupe kessler APRN 5,000 Units at 07/02/25 0649 influenza vac split high-dose (FLUZONE HIGH DOSE) injection 0.5 mL 0.5 mL Intramuscular During Hospitalization Kris Boston DO insulin glargine (LANTUS, SEMGLEE) injection 56 Units 56 Units Subcutaneous Nightly Amanda Bermudez MD 56 Units at 07/01/25 2145 ipratropium-albuterol (DUO-NEB) nebulizer solution 3 mL 3 mL Nebulization Q6H PRN Amanda Bermudez MD lamoTRIgine (LaMICtal) tablet 100 mg 100 mg Oral Daily Amanda Bermudez MD 100 mg at 07/01/25 0830 lamoTRIgine (LaMICtal) tablet 250 mg 250 mg Oral Nightly Amanda Bermudez MD 250 mg at 07/01/25 2144 Magnesium Cardiology Dose Replacement - Follow Nurse / BPA Driven Protocol Not Applicable PRN Amanda Bermudez MD meropenem (MERREM) 500 mg in sodium chloride 0.9 % 100 mL MBP 500 mg Intravenous Q6H Miedler, Sumit, MD 500 mg at 07/02/25 0359 methenamine (HIPREX) tablet 1 g 1 g Oral BID With Meals Amanda Bermudez MD 1 g at 07/01/25 1713 multivitamin with minerals 1 tablet 1 tablet Oral Daily Amanda Bermudez MD 1 tablet at 07/01/25 0830 naloxone (NARCAN) injection 0.4 mg 0.4 mg Intravenous Q5 Min PRN Amanda Bermudez MD nitroglycerin (NITROSTAT) SL tablet 0.4 mg 0.4 mg Sublingual Q5 Min PRN Amanda Bermudez MD ondansetron (ZOFRAN) injection 4 mg 4 mg Intravenous Q6H PRN Amanda Bermudez MD 4 mg at 06/29/25 1646 oxyCODONE-acetaminophen (PERCOCET) 10-325 MG per tablet 1 tablet 1 tablet Oral Q6H PRN Kris Boston DO 1 tablet at 07/02/25 0125 Pharmacy to dose vancomycin Not Applicable Continuous PRN Duglas Andres MD Phosphorus Replacement - Follow Nurse / BPA Driven Protocol Not Applicable PRN Amanda Bermudez MD Potassium Replacement - Follow Nurse / BPA Driven Protocol Not Applicable PRN Amanda Bermudez MD sacubitril-valsartan (ENTRESTO) 24-26 MG tablet 1 tablet 1 tablet Oral BID Amanda Bermudez MD 1 tablet at 07/01/25 2144 sodium chloride 0.9 % flush 10 mL 10 mL Intravenous PRN Ally Jeffers V, DIABETES NURSE sodium chloride 0.9 % flush 10 mL 10 mL Intravenous Q12H Amanda Bermudez MD 10 mL at 07/01/25 0832 sodium chloride 0.9 % flush 10 mL 10 mL Intravenous PRN Amanda Bermudez MD sodium chloride 0.9 % flush 10 mL 10 mL Intravenous Q12H Duglas Andres MD 10 mL at 07/01/25 2145 sodium chloride 0.9 % flush 10 mL 10 mL Intravenous PRN Duglas Andres MD sodium chloride 0.9 % flush 20 mL 20 mL Intravenous PRN Duglas Andres MD sodium chloride 0.9 % infusion 40 mL 40 mL Intravenous PRN Duglas Andres MD vancomycin (VANCOCIN) 1,000 mg in sodium chloride 0.9 % 250 mL IVPB-VTB 1,000 mg Intravenous Q12H Osmany Mccann, [facility] 250 mL/hr at 07/01/252142 1,000 mg at 07/01/252142 vancomycin (VANCOCIN) capsule 125 mg 125 mg Oral 4x Daily Duglas Andres MD 125 mg at Followed by [START ON 07/10/2025] vancomycin (VANCOCIN) capsule 125 mg 125 mg Oral TID Duglas Andres MD Followed by [START ON 07/17/2025] vancomycin (VANCOCIN) capsule 125 mg 125 mg Oral BID Duglas Andres MD Followed by [START ON 07/25/2025] vancomycin (VANCOCIN) capsule 125 mg 125 mg Oral Daily Duglas Andres MD Followed by [START ON 08/01/2025] vancomycin (VANCOCIN) capsule 125 mg 125 mg Oral Weekly Duglas Andres MD * WernerTaylor - 07/09/2025 12:10 PM EDT Continued Stay Note Abdullahi Patient Name: Trung Pool Today's Date: 07/09/2025 Admit Date: 06/25/2025 Plan: TBD Discharge Plan Row Name 07/09/25 1207 Plan Plan TBD Patient/Family in Agreement with Plan yes Plan Comments Hospice f/u visit made. Pt was lying in bed asleep w/ no family present. HL attemptedto wake the pt several times, but pt did not wake. HL spoke w/ staff anesthetist, Norma, & asked that she send HL a chat when the pt wakes. HL explained that she did not want the pt to think that HL had not attempted to f/u today. Norma agreeable. F/u visit made. Pt still verbalizes that he has not other viable options other than electing the hospice benefit despite clearly having other options which he opts not to consider. HL did again stress that his decision for CPR & mechanical ventilation x 5 days are not in line w/ a hospice POC. HL did encourage the pt to consider his options & that hospice would f/u tomorrow, verbal understanding expressed. Hospice will continue to follow. If further assistance is need please call [phone]. Discharge Codes No documentation. Expected Discharge Date and Time Expected Discharge Date Expected Discharge Time Jul 10, 2025 Taylor Werner * Gigi Alcantara MD - 07/09/2025 11:19 AM EDT Images from the original note were not included. [facility] Medicine Services PROGRESS NOTE Patient Name: Trung Pool : [id number] Date of Admission: 06/25/2025 Primary Care Physician: Gustavo Mehta MD Subjective Subjective CC: LLE wound HPI: Long conversation again today with patient with hospice provider at the bedside, explained multipleoptions however patient is undecided, fear he has preconceived notions and is not basing his decisions on factual evidence. Will revisit these conversations on a daily basis. Objective Objective Vital Signs: Temp: [97.3 ??F (36.3 ??C)-98 ??F (36.7 ??C)] 97.5 ??F (36.4 ??C) Heart Rate: [58-110] 67 Resp: [16-20] 18 BP: (92-165)/(44-92) 153/92 Physical Exam: Constitutional: No acute distress, awake, alert HENT: NCAT, mucous membranes moist Respiratory: Clear to auscultation bilaterally, respiratory effort normal room air Cardiovascular: RRR, no murmurs, rubs, or gallops Gastrointestinal: Positive bowel sounds, soft, nontender, nondistended Musculoskeletal: right BKA, left LLE erythema with wound vac, left foot toes amputated, Psychiatric: Appropriate affect, cooperative Neurologic: Oriented x 3, strength symmetric in all extremities, Cranial Nerves grossly intact to confrontation, speech clear Skin: No rashes, pale de los santos to BSD Results Reviewed: LAB RESULTS: Lab 07/09/25 0712 07/08/25 0542 07/07/25 0343 07/06/25 1246 07/04/25 0347 WBC 9.80 7.37 7.72 8.43 8.21 HEMOGLOBIN 9.5* 9.7* 9.3* 9.5* 9.3* HEMATOCRIT 30.7* 35.5* 30.9* 31.1* 31.1* PLATELETS 278 281 275 300 264 NEUTROS ABS -- -- -- -- 5.86 IMMATURE GRANS (ABS) -- -- -- -- 0.05 LYMPHS ABS -- -- -- -- 1.53 MONOS ABS -- -- -- -- 0.70 EOS ABS -- -- -- -- 0.04 MCV 77.9* 84.7 79.0 77.8* 77.2* Lab 07/09/25 0712 07/08/25 1418 07/08/25 0542 07/07/25 0343 07/06/25 1246 SODIUM 136 136 131* 134* 134* POTASSIUM 5.8* 5.9* 6.0* 5.2 6.2* CHLORIDE 106 104 104 101 103 CO2 21.8* 21.1* 17.4* 22.2 23.9 ANION GAP 8.2 10.9 9.6 10.8 7.1 BUN 21.6 18.7 19.5 18.3 16.5 CREATININE 1.05 0.91 0.94 1.02 1.02 EGFR 75.9 90.1 86.7 78.6 78.6 GLUCOSE 53* 89 120* 171* 119* CALCIUM 8.7 8.8 8.5* 8.6 8.5* MAGNESIUM 2.1 -- 2.2 2.0 2.1 Lab 07/03/25 1900 PH, ARTERIAL 7.362 PCO2, ARTERIAL 41.7 PO2 ART 172.0* FIO2 60 HCO3 ART 23.6 BASE EXCESS ART -1.7* CARBOXYHEMOGLOBIN 1.1 Brief Urine Lab Results (Last result in the past 365 days) Color Clarity Blood Leuk Est Nitrite Protein CREAT Urine HCG 06/25/252000 Yellow Turbid Large (3+) Large (3+) Positive Trace Microbiology Results Abnormal Procedure Component Value - Date/Time Urine Culture - Urine, Indwelling Urethral Catheter [[id number]] (Abnormal) (Susceptibility) Collected: 06/25/252000 Lab Status: Final result Specimen: Urine from Indwelling Urethral Catheter Updated: 06/30/25 1001 Urine Culture >100,000 CFU/mL Proteus mirabilis Narrative: Colonization of the urinary tract without infection is common. Treatment is discouraged unless the patient is symptomatic, , or undergoing an invasive urologic procedure. Susceptibility Proteus mirabilis MURRAY Amoxicillin + Clavulanate Susceptible Ampicillin Resistant Ampicillin + Sulbactam Intermediate Cefazolin (Urine) Resistant Cefepime Resistant Ceftazidime Susceptible Ceftriaxone Resistant Cefuroxime axetil Resistant Ciprofloxacin Resistant Gentamicin Susceptible Levofloxacin Resistant Nitrofurantoin Resistant Piperacillin + Tazobactam Susceptible Trimethoprim + Sulfamethoxazole Resistant Blood Culture - Blood, Hand, Right [[id number]] (Abnormal) (Susceptibility) Collected: 06/25/252029 Lab Status: Edited Result - FINAL Specimen: Blood from Hand, Right Updated: 06/29/25 0713 Blood Culture Enterococcus faecium Comment: Infectious disease consultation is highly recommended. Isolated from Anaerobic Bottle Gram Stain Anaerobic Bottle Gram positive cocci in chains Narrative: Less than seven (7) mL's of blood was collected. Insufficient quantity may yield false negative results. requested linezolid & daptomycin 06/28/25 Susceptibility Enterococcus faecium MURRAY Method Not Specified Ampicillin Susceptible Daptomycin Susceptible dose dependent Gentamicin High Level Synergy Susceptible Linezolid Susceptible (C) [1] Vancomycin Susceptible [1] Appended report. These results have been appended to a previously final verified report. Wound Culture - Swab, Foot, Left [[id number]] (Abnormal) (Susceptibility) Collected: 06/25/25 1818 Lab Status: Final result Specimen: Swab from Foot, Left Updated: 06/29/25 0645 Wound Culture Heavy growth (4+) Staphylococcus aureus, MRSA Comment: Methicillin resistant Staphylococcus aureus, Patient may be an isolation risk. Moderate growth (3+) Morganella morganii ssp morganii Moderate growth (3+) Proteus mirabilis ESBL Comment: Consider infectious disease consult. Susceptibility results may not correlate to clinical outcomes. Gram Stain Few (2+) WBCs seen Few (2+) Gram positive cocci in pairs, chains and clusters Few (2+) Gram negative bacilli Susceptibility Staphylococcus aureus, MRSA MURRAY Clindamycin Susceptible Erythromycin Resistant Oxacillin Resistant Rifampin Susceptible Tetracycline Susceptible Trimethoprim + Sulfamethoxazole Resistant Vancomycin Susceptible Susceptibility Morganella morganii ssp morganii MURRAY Method Not Specified Amoxicillin + Clavulanate Resistant Ampicillin Resistant Ampicillin + Sulbactam Resistant Cefazolin (Non Urine) Resistant Cefepime Susceptible Cefotaxime Susceptible Ceftazidime Susceptible Cefuroxime axetil Resistant Ciprofloxacin Resistant Gentamicin Susceptible Levofloxacin Resistant Piperacillin + Tazobactam Susceptible Tetracycline Susceptible Trimethoprim + Sulfamethoxazole Resistant Susceptibility Proteus mirabilis ESBL MURRAY Ciprofloxacin Resistant Ertapenem Susceptible Levofloxacin Resistant Meropenem Susceptible Tetracycline Resistant Trimethoprim + Sulfamethoxazole Resistant Susceptibility Comments Morganella morganii ssp morganii Cefotaxime susceptibility can be used as a surrogate for ceftriaxone susceptibility Proteus mirabilis ESBL With the exception of urinary-sourced infections, aminoglycosides should not be used as monotherapy. Blood Culture ID, PCR - Blood, Hand, Right [[id number]] (Abnormal) Collected: 06/25/252029 Lab Status: Final result Specimen: Blood from Hand, Right Updated: 06/26/252101 BCID, PCR Enterococcus faecium. Zee/B (vancomycin resistance gene) not detected. Identification by BCID2 PCR. BOTTLE TYPE Anaerobic Bottle Narrative: Infectious disease consultation is highly recommended to rule out distant foci of infection. MRSA Screen, PCR (Inpatient) - Swab, Nares [[id number]] (Abnormal) Collected: 06/26/2545 Lab Status: Final result Specimen: Swab from Nares Updated: 06/26/25 0850 MRSA PCR Positive Narrative: The negative predictive value of this diagnostic test is high and should only be used to consider de-escalating anti-MRSA therapy. A positive result may indicate colonization with MRSA and must be correlated clinically. Gastrointestinal Panel, PCR - Stool, Per Rectum [[id number]] (Abnormal) Collected: 06/26/2545 Lab Status: Final result Specimen: Stool from Per Rectum Updated: 06/26/25 0850 Campylobacter Not Detected Plesiomonas shigelloides Not Detected Salmonella Not Detected Vibrio Not Detected Vibrio cholerae Not Detected Yersinia enterocolitica Not Detected Enteroaggregative E. coli (EAEC) Not Detected Enteropathogenic E. coli (EPEC) Not Detected Enterotoxigenic E. coli (ETEC) lt/st Not Detected Shiga-like toxin-producing E. coli (STEC) stx1/stx2 Not Detected Shigella/Enteroinvasive E. coli (EIEC) Not Detected Cryptosporidium Not Detected Cyclospora cayetanensis Not Detected Entamoeba histolytica Not Detected Giardia lamblia Not Detected Adenovirus F40/41 Not Detected Astrovirus Not Detected Norovirus GI/GII Detected Comment: If a positive Norovirus result is inconsistent with clinical presentation, the positive Norovirus result should be confirmed using another method. Rotavirus A Not Detected Sapovirus (I, II, IV or V) Not Detected Clostridioides difficile Toxin - Stool, Per Rectum [[id number]] (Abnormal) Collected: 06/26/2545 Lab Status: Final result Specimen: Stool from Per Rectum Updated: 06/26/25754 Narrative: The following orders were created for panel order Clostridioides difficile Toxin - Stool, Per Rectum. Procedure Abnormality Status --------- ------ Clostridioides difficile...[[id number]] Abnormal Final result Please view results for these tests on the individual orders. Clostridioides difficile Toxin, PCR - Stool, Per Rectum [[id number]] (Abnormal) Collected: 06/26/2545 Lab Status: Final result Specimen: Stool from Per Rectum Updated: 06/26/25754 Toxigenic C. difficile by PCR Detected Narrative: DNA from a toxigenic strain of C.difficile has been detected. Microbiology Results Abnormal Procedure Component Value - Date/Time Urine Culture - Urine, Indwelling Urethral Catheter [[id number]] (Abnormal) (Susceptibility) Collected: 06/25/252000 Lab Status: Final result Specimen: Urine from Indwelling Urethral Catheter Updated: 06/30/25 1001 Urine Culture >100,000 CFU/mL Proteus mirabilis Narrative: Colonization of the urinary tract without infection is common. Treatment is discouraged unless the patient is symptomatic, , or undergoing an invasive urologic procedure. Susceptibility Proteus mirabilis MURRAY Amoxicillin + Clavulanate Susceptible Ampicillin Resistant Ampicillin + Sulbactam Intermediate Cefazolin (Urine) Resistant Cefepime Resistant Ceftazidime Susceptible Ceftriaxone Resistant Cefuroxime axetil Resistant Ciprofloxacin Resistant Gentamicin Susceptible Levofloxacin Resistant Nitrofurantoin Resistant Piperacillin + Tazobactam Susceptible Trimethoprim + Sulfamethoxazole Resistant Blood Culture - Blood, Hand, Right [[id number]] (Abnormal) (Susceptibility) Collected: 06/25/25 2030 Lab Status: Edited Result - FINAL Specimen: Blood from Hand, Right Updated: 06/29/25 07 Blood Culture Enterococcus faecium Comment: Infectious disease consultation is highly recommended. Isolated from Anaerobic Bottle Gram Stain Anaerobic Bottle Gram positive cocci in chains Narrative: Less than seven (7) mL's of blood was collected. Insufficient quantity may yield false negative results. requested linezolid & daptomycin 06/28/25 Susceptibility Enterococcus faecium MURRAY Method Not Specified Ampicillin Susceptible Daptomycin Susceptible dose dependent Gentamicin High Level Synergy Susceptible Linezolid Susceptible (C) [1] Vancomycin Susceptible [1] Appended report. These results have been appended to a previously final verified report. Wound Culture - Swab, Foot, Left [[id number]] (Abnormal) (Susceptibility) Collected: 06/25/251817 Lab Status: Final result Specimen: Swab from Foot, Left Updated: 06/29/25 0645 Wound Culture Heavy growth (4+) Staphylococcus aureus, MRSA Comment: Methicillin resistant Staphylococcus aureus, Patient may be an isolation risk. Moderate growth (3+) Morganella morganii ssp morganii Moderate growth (3+) Proteus mirabilis ESBL Comment: Consider infectious disease consult. Susceptibility results may not correlate to clinical outcomes. Gram Stain Few (2+) WBCs seen Few (2+) Gram positive cocci in pairs, chains and clusters Few (2+) Gram negative bacilli Susceptibility Staphylococcus aureus, MRSA MURRAY Clindamycin Susceptible Erythromycin Resistant Oxacillin Resistant Rifampin Susceptible Tetracycline Susceptible Trimethoprim + Sulfamethoxazole Resistant Vancomycin Susceptible Susceptibility Morganella morganii ssp morganii MURRAY Method Not Specified Amoxicillin + Clavulanate Resistant Ampicillin Resistant Ampicillin + Sulbactam Resistant Cefazolin (Non Urine) Resistant Cefepime Susceptible Cefotaxime Susceptible Ceftazidime Susceptible Cefuroxime axetil Resistant Ciprofloxacin Resistant Gentamicin Susceptible Levofloxacin Resistant Piperacillin + Tazobactam Susceptible Tetracycline Susceptible Trimethoprim + Sulfamethoxazole Resistant Susceptibility Proteus mirabilis ESBL MURRAY Ciprofloxacin Resistant Ertapenem Susceptible Levofloxacin Resistant Meropenem Susceptible Tetracycline Resistant Trimethoprim + Sulfamethoxazole Resistant Susceptibility Comments Morganella morganii ssp morganii Cefotaxime susceptibility can be used as a surrogate for ceftriaxone susceptibility Proteus mirabilis ESBL With the exception of urinary-sourced infections, aminoglycosides should not be used as monotherapy. Blood Culture ID, PCR - Blood, Hand, Right [[id number]] (Abnormal) Collected: 06/25/252029 Lab Status: Final result Specimen: Blood from Hand, Right Updated: 06/26/252101 BCID, PCR Enterococcus faecium. Zee/B (vancomycin resistance gene) not detected. Identification by BCID2 PCR. BOTTLE TYPE Anaerobic Bottle Narrative: Infectious disease consultation is highly recommended to rule out distant foci of infection. MRSA Screen, PCR (Inpatient) - Swab, Nares [[id number]] (Abnormal) Collected: 06/26/2545 Lab Status: Final result Specimen: Swab from Nares Updated: 06/26/25 0850 MRSA PCR Positive Narrative: The negative predictive value of this diagnostic test is high and should only be used to consider de-escalating anti-MRSA therapy. A positive result may indicate colonization with MRSA and must be correlated clinically. Gastrointestinal Panel, PCR - Stool, Per Rectum [[id number]] (Abnormal) Collected: 06/26/2545 Lab Status: Final result Specimen: Stool from Per Rectum Updated: 06/26/25 0850 Campylobacter Not Detected Plesiomonas shigelloides Not Detected Salmonella Not Detected Vibrio Not Detected Vibrio cholerae Not Detected Yersinia enterocolitica Not Detected Enteroaggregative E. coli (EAEC) Not Detected Enteropathogenic E. coli (EPEC) Not Detected Enterotoxigenic E. coli (ETEC) lt/st Not Detected Shiga-like toxin-producing E. coli (STEC) stx1/stx2 Not Detected Shigella/Enteroinvasive E. coli (EIEC) Not Detected Cryptosporidium Not Detected Cyclospora cayetanensis Not Detected Entamoeba histolytica Not Detected Giardia lamblia Not Detected Adenovirus F40/41 Not Detected Astrovirus Not Detected Norovirus GI/GII Detected Comment: If a positive Norovirus result is inconsistent with clinical presentation, the positive Norovirus result should be confirmed using another method. Rotavirus A Not Detected Sapovirus (I, II, IV or V) Not Detected Clostridioides difficile Toxin - Stool, Per Rectum [[id number]] (Abnormal) Collected: 06/26/2545 Lab Status: Final result Specimen: Stool from Per Rectum Updated: 06/26/25 0755 Narrative: The following orders were created for panel order Clostridioides difficile Toxin - Stool, Per Rectum. Procedure Abnormality Status --------- ------ Clostridioides difficile...[[id number]] Abnormal Final result Please view results for these tests on the individual orders. Clostridioides difficile Toxin, PCR - Stool, Per Rectum [[id number]] (Abnormal) Collected: 06/26/25 0046 Lab Status: Final result Specimen: Stool from Per Rectum Updated: 06/26/25 0755 Toxigenic C. difficile by PCR Detected Narrative: DNA from a toxigenic strain of C.difficile has been detected. Microbiology Results Abnormal Procedure Component Value - Date/Time Urine Culture - Urine, Indwelling Urethral Catheter [[id number]] (Abnormal) (Susceptibility) Collected: 06/25/252000 Lab Status: Final result Specimen: Urine from Indwelling Urethral Catheter Updated: 06/30/25 1001 Urine Culture >100,000 CFU/mL Proteus mirabilis Narrative: Colonization of the urinary tract without infection is common. Treatment is discouraged unless the patient is symptomatic, , or undergoing an invasive urologic procedure. Susceptibility Proteus mirabilis MURRAY Amoxicillin + Clavulanate Susceptible Ampicillin Resistant Ampicillin + Sulbactam Intermediate Cefazolin (Urine) Resistant Cefepime Resistant Ceftazidime Susceptible Ceftriaxone Resistant Cefuroxime axetil Resistant Ciprofloxacin Resistant Gentamicin Susceptible Levofloxacin Resistant Nitrofurantoin Resistant Piperacillin + Tazobactam Susceptible Trimethoprim + Sulfamethoxazole Resistant Blood Culture - Blood, Hand, Right [[id number]] (Abnormal) (Susceptibility) Collected: 06/25/252029 Lab Status: Edited Result - FINAL Specimen: Blood from Hand, Right Updated: 06/29/25 0713 Blood Culture Enterococcus faecium Comment: Infectious disease consultation is highly recommended. Isolated from Anaerobic Bottle Gram Stain Anaerobic Bottle Gram positive cocci in chains Narrative: Less than seven (7) mL's of blood was collected. Insufficient quantity may yield false negative results. requested linezolid & daptomycin 06/28/25 Susceptibility Enterococcus faecium MURRAY Method Not Specified Ampicillin Susceptible Daptomycin Susceptible dose dependent Gentamicin High Level Synergy Susceptible Linezolid Susceptible (C) [1] Vancomycin Susceptible [1] Appended report. These results have been appended to a previously final verified report. Wound Culture - Swab, Foot, Left [[id number]] (Abnormal) (Susceptibility) Collected: 06/25/25 1818 Lab Status: Final result Specimen: Swab from Foot, Left Updated: 06/29/25 0645 Wound Culture Heavy growth (4+) Staphylococcus aureus, MRSA Comment: Methicillin resistant Staphylococcus aureus, Patient may be an isolation risk. Moderate growth (3+) Morganella morganii ssp morganii Moderate growth (3+) Proteus mirabilis ESBL Comment: Consider infectious disease consult. Susceptibility results may not correlate to clinical outcomes. Gram Stain Few (2+) WBCs seen Few (2+) Gram positive cocci in pairs, chains and clusters Few (2+) Gram negative bacilli Susceptibility Staphylococcus aureus, MRSA MURRAY Clindamycin Susceptible Erythromycin Resistant Oxacillin Resistant Rifampin Susceptible Tetracycline Susceptible Trimethoprim + Sulfamethoxazole Resistant Vancomycin Susceptible Susceptibility Morganella morganii ssp morganii MURRAY Method Not Specified Amoxicillin + Clavulanate Resistant Ampicillin Resistant Ampicillin + Sulbactam Resistant Cefazolin (Non Urine) Resistant Cefepime Susceptible Cefotaxime Susceptible Ceftazidime Susceptible Cefuroxime axetil Resistant Ciprofloxacin Resistant Gentamicin Susceptible Levofloxacin Resistant Piperacillin + Tazobactam Susceptible Tetracycline Susceptible Trimethoprim + Sulfamethoxazole Resistant Susceptibility Proteus mirabilis ESBL MURRAY Ciprofloxacin Resistant Ertapenem Susceptible Levofloxacin Resistant Meropenem Susceptible Tetracycline Resistant Trimethoprim + Sulfamethoxazole Resistant Susceptibility Comments Morganella morganii ssp morganii Cefotaxime susceptibility can be used as a surrogate for ceftriaxone susceptibility Proteus mirabilis ESBL With the exception of urinary-sourced infections, aminoglycosides should not be used as monotherapy. Blood Culture ID, PCR - Blood, Hand, Right [[id number]] (Abnormal) Collected: 06/25/25 2030 Lab Status: Final result Specimen: Blood from Hand, Right Updated: 06/26/252101 BCID, PCR Enterococcus faecium. Zee/B (vancomycin resistance gene) not detected. Identification by BCID2 PCR. BOTTLE TYPE Anaerobic Bottle Narrative: Infectious disease consultation is highly recommended to rule out distant foci of infection. MRSA Screen, PCR (Inpatient) - Swab, Nares [[id number]] (Abnormal) Collected: 06/26/25 0046 Lab Status: Final result Specimen: Swab from Nares Updated: 06/26/25 0850 MRSA PCR Positive Narrative: The negative predictive value of this diagnostic test is high and should only be used to consider de-escalating anti-MRSA therapy. A positive result may indicate colonization with MRSA and must be correlated clinically. Gastrointestinal Panel, PCR - Stool, Per Rectum [[id number]] (Abnormal) Collected: 06/26/2545 Lab Status: Final result Specimen: Stool from Per Rectum Updated: 06/26/25 0850 Campylobacter Not Detected Plesiomonas shigelloides Not Detected Salmonella Not Detected Vibrio Not Detected Vibrio cholerae Not Detected Yersinia enterocolitica Not Detected Enteroaggregative E. coli (EAEC) Not Detected Enteropathogenic E. coli (EPEC) Not Detected Enterotoxigenic E. coli (ETEC) lt/st Not Detected Shiga-like toxin-producing E. coli (STEC) stx1/stx2 Not Detected Shigella/Enteroinvasive E. coli (EIEC) Not Detected Cryptosporidium Not Detected Cyclospora cayetanensis Not Detected Entamoeba histolytica Not Detected Giardia lamblia Not Detected Adenovirus F40/41 Not Detected Astrovirus Not Detected Norovirus GI/GII Detected Comment: If a positive Norovirus result is inconsistent with clinical presentation, the positive Norovirus result should be confirmed using another method. Rotavirus A Not Detected Sapovirus (I, II, IV or V) Not Detected Clostridioides difficile Toxin - Stool, Per Rectum [[id number]] (Abnormal) Collected: 06/26/2545 Lab Status: Final result Specimen: Stool from Per Rectum Updated: 06/26/25754 Narrative: The following orders were created for panel order Clostridioides difficile Toxin - Stool, Per Rectum. Procedure Abnormality Status --------- ------ Clostridioides difficile...[[id number]] Abnormal Final result Please view results for these tests on the individual orders. Clostridioides difficile Toxin, PCR - Stool, Per Rectum [[id number]] (Abnormal) Collected: 06/26/2545 Lab Status: Final result Specimen: Stool from Per Rectum Updated: 06/26/25754 Toxigenic C. difficile by PCR Detected Narrative: DNA from a toxigenic strain of C.difficile has been detected. Microbiology Results Abnormal Procedure Component Value - Date/Time Urine Culture - Urine, Indwelling Urethral Catheter [[id number]] (Abnormal) (Susceptibility) Collected: 06/25/252000 Lab Status: Final result Specimen: Urine from Indwelling Urethral Catheter Updated: 06/30/25 1001 Urine Culture >100,000 CFU/mL Proteus mirabilis Narrative: Colonization of the urinary tract without infection is common. Treatment is discouraged unless the patient is symptomatic, , or undergoing an invasive urologic procedure. Susceptibility Proteus mirabilis MURRAY Amoxicillin + Clavulanate Susceptible Ampicillin Resistant Ampicillin + Sulbactam Intermediate Cefazolin (Urine) Resistant Cefepime Resistant Ceftazidime Susceptible Ceftriaxone Resistant Cefuroxime axetil Resistant Ciprofloxacin Resistant Gentamicin Susceptible Levofloxacin Resistant Nitrofurantoin Resistant Piperacillin + Tazobactam Susceptible Trimethoprim + Sulfamethoxazole Resistant Blood Culture - Blood, Hand, Right [[id number]] (Abnormal) (Susceptibility) Collected: 06/25/25 2030 Lab Status: Edited Result - FINAL Specimen: Blood from Hand, Right Updated: 06/29/25 0713 Blood Culture Enterococcus faecium Comment: Infectious disease consultation is highly recommended. Isolated from Anaerobic Bottle Gram Stain Anaerobic Bottle Gram positive cocci in chains Narrative: Less than seven (7) mL's of blood was collected. Insufficient quantity may yield false negative results. requested linezolid & daptomycin 06/28/25 Susceptibility Enterococcus faecium MURRAY Method Not Specified Ampicillin Susceptible Daptomycin Susceptible dose dependent Gentamicin High Level Synergy Susceptible Linezolid Susceptible (C) [1] Vancomycin Susceptible [1] Appended report. These results have been appended to a previously final verified report. Wound Culture - Swab, Foot, Left [[id number]] (Abnormal) (Susceptibility) Collected: 06/25/25 1818 Lab Status: Final result Specimen: Swab from Foot, Left Updated: 06/29/25 0645 Wound Culture Heavy growth (4+) Staphylococcus aureus, MRSA Comment: Methicillin resistant Staphylococcus aureus, Patient may be an isolation risk. Moderate growth (3+) Morganella morganii ssp morganii Moderate growth (3+) Proteus mirabilis ESBL Comment: Consider infectious disease consult. Susceptibility results may not correlate to clinical outcomes. Gram Stain Few (2+) WBCs seen Few (2+) Gram positive cocci in pairs, chains and clusters Few (2+) Gram negative bacilli Susceptibility Staphylococcus aureus, MRSA MURRAY Clindamycin Susceptible Erythromycin Resistant Oxacillin Resistant Rifampin Susceptible Tetracycline Susceptible Trimethoprim + Sulfamethoxazole Resistant Vancomycin Susceptible Susceptibility Morganella morganii ssp morganii MURRAY Method Not Specified Amoxicillin + Clavulanate Resistant Ampicillin Resistant Ampicillin + Sulbactam Resistant Cefazolin (Non Urine) Resistant Cefepime Susceptible Cefotaxime Susceptible Ceftazidime Susceptible Cefuroxime axetil Resistant Ciprofloxacin Resistant Gentamicin Susceptible Levofloxacin Resistant Piperacillin + Tazobactam Susceptible Tetracycline Susceptible Trimethoprim + Sulfamethoxazole Resistant Susceptibility Proteus mirabilis ESBL MURRAY Ciprofloxacin Resistant Ertapenem Susceptible Levofloxacin Resistant Meropenem Susceptible Tetracycline Resistant Trimethoprim + Sulfamethoxazole Resistant Susceptibility Comments Morganella morganii ssp morganii Cefotaxime susceptibility can be used as a surrogate for ceftriaxone susceptibility Proteus mirabilis ESBL With the exception of urinary-sourced infections, aminoglycosides should not be used as monotherapy. Blood Culture ID, PCR - Blood, Hand, Right [[id number]] (Abnormal) Collected: 06/25/252029 Lab Status: Final result Specimen: Blood from Hand, Right Updated: 06/26/252101 BCID, PCR Enterococcus faecium. Zee/B (vancomycin resistance gene) not detected. Identification by BCID2 PCR. BOTTLE TYPE Anaerobic Bottle Narrative: Infectious disease consultation is highly recommended to rule out distant foci of infection. MRSA Screen, PCR (Inpatient) - Swab, Nares [[id number]] (Abnormal) Collected: 06/26/2545 Lab Status: Final result Specimen: Swab from Nares Updated: 06/26/25 0850 MRSA PCR Positive Narrative: The negative predictive value of this diagnostic test is high and should only be used to consider de-escalating anti-MRSA therapy. A positive result may indicate colonization with MRSA and must be correlated clinically. Gastrointestinal Panel, PCR - Stool, Per Rectum [[id number]] (Abnormal) Collected: 06/26/2545 Lab Status: Final result Specimen: Stool from Per Rectum Updated: 06/26/25 0850 Campylobacter Not Detected Plesiomonas shigelloides Not Detected Salmonella Not Detected Vibrio Not Detected Vibrio cholerae Not Detected Yersinia enterocolitica Not Detected Enteroaggregative E. coli (EAEC) Not Detected Enteropathogenic E. coli (EPEC) Not Detected Enterotoxigenic E. coli (ETEC) lt/st Not Detected Shiga-like toxin-producing E. coli (STEC) stx1/stx2 Not Detected Shigella/Enteroinvasive E. coli (EIEC) Not Detected Cryptosporidium Not Detected Cyclospora cayetanensis Not Detected Entamoeba histolytica Not Detected Giardia lamblia Not Detected Adenovirus F40/41 Not Detected Astrovirus Not Detected Norovirus GI/GII Detected Comment: If a positive Norovirus result is inconsistent with clinical presentation, the positive Norovirus result should be confirmed using another method. Rotavirus A Not Detected Sapovirus (I, II, IV or V) Not Detected Clostridioides difficile Toxin - Stool, Per Rectum [[id number]] (Abnormal) Collected: 06/26/2545 Lab Status: Final result Specimen: Stool from Per Rectum Updated: 06/26/25754 Narrative: The following orders were created for panel order Clostridioides difficile Toxin - Stool, Per Rectum. Procedure Abnormality Status --------- ------ Clostridioides difficile...[[id number]] Abnormal Final result Please view results for these tests on the individual orders. Clostridioides difficile Toxin, PCR - Stool, Per Rectum [[id number]] (Abnormal) Collected: 06/26/2545 Lab Status: Final result Specimen: Stool from Per Rectum Updated: 06/26/25754 Toxigenic C. difficile by PCR Detected Narrative: DNA from a toxigenic strain of C.difficile has been detected. Microbiology Results Abnormal Procedure Component Value - Date/Time Urine Culture - Urine, Indwelling Urethral Catheter [[id number]] (Abnormal) (Susceptibility) Collected: 06/25/252000 Lab Status: Final result Specimen: Urine from Indwelling Urethral Catheter Updated: 06/30/25 1001 Urine Culture >100,000 CFU/mL Proteus mirabilis Narrative: Colonization of the urinary tract without infection is common. Treatment is discouraged unless the patient is symptomatic, , or undergoing an invasive urologic procedure. Susceptibility Proteus mirabilis MURRAY Amoxicillin + Clavulanate Susceptible Ampicillin Resistant Ampicillin + Sulbactam Intermediate Cefazolin (Urine) Resistant Cefepime Resistant Ceftazidime Susceptible Ceftriaxone Resistant Cefuroxime axetil Resistant Ciprofloxacin Resistant Gentamicin Susceptible Levofloxacin Resistant Nitrofurantoin Resistant Piperacillin + Tazobactam Susceptible Trimethoprim + Sulfamethoxazole Resistant Blood Culture - Blood, Hand, Right [[id number]] (Abnormal) (Susceptibility) Collected: 06/25/252029 Lab Status: Edited Result - FINAL Specimen: Blood from Hand, Right Updated: 06/29/25 0713 Blood Culture Enterococcus faecium Comment: Infectious disease consultation is highly recommended. Isolated from Anaerobic Bottle Gram Stain Anaerobic Bottle Gram positive cocci in chains Narrative: Less than seven (7) mL's of blood was collected. Insufficient quantity may yield false negative results. requested linezolid & daptomycin 06/28/25 Susceptibility Enterococcus faecium MURRAY Method Not Specified Ampicillin Susceptible Daptomycin Susceptible dose dependent Gentamicin High Level Synergy Susceptible Linezolid Susceptible (C) [1] Vancomycin Susceptible [1] Appended report. These results have been appended to a previously final verified report. Wound Culture - Swab, Foot, Left [[id number]] (Abnormal) (Susceptibility) Collected: 06/25/25 181 Lab Status: Final result Specimen: Swab from Foot, Left Updated: 06/29/25 0645 Wound Culture Heavy growth (4+) Staphylococcus aureus, MRSA Comment: Methicillin resistant Staphylococcus aureus, Patient may be an isolation risk. Moderate growth (3+) Morganella morganii ssp morganii Moderate growth (3+) Proteus mirabilis ESBL Comment: Consider infectious disease consult. Susceptibility results may not correlate to clinical outcomes. Gram Stain Few (2+) WBCs seen Few (2+) Gram positive cocci in pairs, chains and clusters Few (2+) Gram negative bacilli Susceptibility Staphylococcus aureus, MRSA MURRAY Clindamycin Susceptible Erythromycin Resistant Oxacillin Resistant Rifampin Susceptible Tetracycline Susceptible Trimethoprim + Sulfamethoxazole Resistant Vancomycin Susceptible Susceptibility Morganella morganii ssp morganii MURRAY Method Not Specified Amoxicillin + Clavulanate Resistant Ampicillin Resistant Ampicillin + Sulbactam Resistant Cefazolin (Non Urine) Resistant Cefepime Susceptible Cefotaxime Susceptible Ceftazidime Susceptible Cefuroxime axetil Resistant Ciprofloxacin Resistant Gentamicin Susceptible Levofloxacin Resistant Piperacillin + Tazobactam Susceptible Tetracycline Susceptible Trimethoprim + Sulfamethoxazole Resistant Susceptibility Proteus mirabilis ESBL MURRAY Ciprofloxacin Resistant Ertapenem Susceptible Levofloxacin Resistant Meropenem Susceptible Tetracycline Resistant Trimethoprim + Sulfamethoxazole Resistant Susceptibility Comments Morganella morganii ssp morganii Cefotaxime susceptibility can be used as a surrogate for ceftriaxone susceptibility Proteus mirabilis ESBL With the exception of urinary-sourced infections, aminoglycosides should not be used as monotherapy. Blood Culture ID, PCR - Blood, Hand, Right [[id number]] (Abnormal) Collected: 06/25/252029 Lab Status: Final result Specimen: Blood from Hand, Right Updated: 06/26/252101 BCID, PCR Enterococcus faecium. Zee/B (vancomycin resistance gene) not detected. Identification by BCID2 PCR. BOTTLE TYPE Anaerobic Bottle Narrative: Infectious disease consultation is highly recommended to rule out distant foci of infection. MRSA Screen, PCR (Inpatient) - Swab, Nares [[id number]] (Abnormal) Collected: 06/26/2545 Lab Status: Final result Specimen: Swab from Nares Updated: 06/26/25 0850 MRSA PCR Positive Narrative: The negative predictive value of this diagnostic test is high and should only be used to consider de-escalating anti-MRSA therapy. A positive result may indicate colonization with MRSA and must be correlated clinically. Gastrointestinal Panel, PCR - Stool, Per Rectum [[id number]] (Abnormal) Collected: 06/26/2545 Lab Status: Final result Specimen: Stool from Per Rectum Updated: 06/26/25849 Campylobacter Not Detected Plesiomonas shigelloides Not Detected Salmonella Not Detected Vibrio Not Detected Vibrio cholerae Not Detected Yersinia enterocolitica Not Detected Enteroaggregative E. coli (EAEC) Not Detected Enteropathogenic E. coli (EPEC) Not Detected Enterotoxigenic E. coli (ETEC) lt/st Not Detected Shiga-like toxin-producing E. coli (STEC) stx1/stx2 Not Detected Shigella/Enteroinvasive E. coli (EIEC) Not Detected Cryptosporidium Not Detected Cyclospora cayetanensis Not Detected Entamoeba histolytica Not Detected Giardia lamblia Not Detected Adenovirus F40/41 Not Detected Astrovirus Not Detected Norovirus GI/GII Detected Comment: If a positive Norovirus result is inconsistent with clinical presentation, the positive Norovirus result should be confirmed using another method. Rotavirus A Not Detected Sapovirus (I, II, IV or V) Not Detected Clostridioides difficile Toxin - Stool, Per Rectum [[id number]] (Abnormal) Collected: 06/26/2545 Lab Status: Final result Specimen: Stool from Per Rectum Updated: 06/26/25 607 Narrative: The following orders were created for panel order Clostridioides difficile Toxin - Stool, Per Rectum. Procedure Abnormality Status --------- ------ Clostridioides difficile...[[id number]] Abnormal Final result Please view results for these tests on the individual orders. Clostridioides difficile Toxin, PCR - Stool, Per Rectum [[id number]] (Abnormal) Collected: 06/26/25 0046 Lab Status: Final result Specimen: Stool from Per Rectum Updated: 06/26/25 0755 Toxigenic C. difficile by PCR Detected Narrative: DNA from a toxigenic strain of C.difficile has been detected. No radiology results from the last 24 hrs Results for orders placed during the hospital encounter of 08/31/24 Adult Transthoracic Echo Complete W/ Cont if Necessary Per Protocol 09/12/2024 4:10 PM Interpretation Summary ??? Left ventricular systolic function is normal. Calculated left ventricular EF = 52.5% ??? There is a trivial pericardial effusion. ??? The aortic valve exhibits sclerosis. ??? Mitral annular calcification is present. I have personally reviewed the therapy plans: [x] PT/OT/ ST Therapy Plans Current medications: Scheduled Meds:acetaminophen, 1,000 mg, Oral, Q8H apixaban, 5 mg, Oral, BID vitamin C, 500 mg, Oral, Daily baclofen, 10 mg, Oral, Q12H carvedilol, 3.125 mg, Oral, BID With Meals clopidogrel, 75 mg, Oral, Daily famotidine, 20 mg, Oral, BID AC finasteride, 5 mg, Oral, Daily folic acid, 1 mg, Oral, Daily gabapentin, 600 mg, Oral, Q8H insulin glargine, 56 Units, Subcutaneous, Nightly lamoTRIgine, 100 mg, Oral, Daily lamoTRIgine, 250 mg, Oral, Nightly meropenem, 500 mg, Intravenous, Q6H methenamine, 1 g, Oral, BID With Meals mirtazapine, 15 mg, Oral, Nightly multivitamin with minerals, 1 tablet, Oral, Daily sacubitril-valsartan, 1 tablet, Oral, BID sodium chloride, 10 mL, Intravenous, Q12H sodium chloride, 10 mL, Intravenous, Q12H vancomycin (dosing per levels), , Not Applicable, Daily vancomycin, 125 mg, Oral, 4x Daily Followed by [START ON 07/10/2025] vancomycin, 125 mg, Oral, TID Followed by [START ON 07/17/2025] vancomycin, 125 mg, Oral, BID Followed by [START ON 07/25/2025] vancomycin, 125 mg, Oral, Daily Followed by [START ON 08/01/2025] vancomycin, 125 mg, Oral, Weekly Continuous Infusions:Pharmacy to dose vancomycin, PRN Meds:.??? aluminum-magnesium hydroxide-simethicone ??? senna-docusate sodium AND polyethylene glycol AND bisacodyl AND bisacodyl ??? Calcium Replacement - Follow Nurse / BPA Driven Protocol ??? diphenhydrAMINE-zinc acetate ??? influenza vaccine ??? ipratropium-albuterol ??? Magnesium Cardiology Dose Replacement - Follow Nurse / BPA Driven Protocol ??? [DISCONTINUED] Morphine AND naloxone ??? nitroglycerin ??? ondansetron ??? oxyCODONE ??? Pharmacy to dose vancomycin ??? Phosphorus Replacement - Follow Nurse / BPA Driven Protocol ??? Potassium Replacement - Follow Nurse / BPA Driven Protocol ??? Insert Peripheral IV AND sodium chloride ??? sodium chloride ??? sodium chloride ??? sodium chloride ??? sodium chloride Assessment & Plan Assessment & Plan Active Hospital Problems Diagnosis POA ??? Gastroenteritis due to norovirus [A08.11] Yes ??? Acute UTI (urinary tract infection) [N39.0] Yes ??? Diarrhea of presumed infectious origin [R19.7] Yes ??? Acute on chronic blood loss anemia [D62] Yes ??? BPH without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 dire consequences; past Cx with MRSA/PSA/ESBL at prior admissions; culture June 02, 2025 with Proteus/MRSA/PSA; Cx June 2025 below; further imaging no definitive osteomyelitis but also unable to exclude per radiology at distal first/second [facility]; surgery with I&D 07/03 but no further bone debridement/amputation --E Faecium bacteremia ; NOT vanco resistant; ?foot source -v- other --Acute hematuria/UTI with chronic indwelling De Los Santos catheter. Proteus in culture so far; nursing reports De Los Santos catheter has been changed since admission; urology evaluation for further consideration of cystoscopy versus SP catheter or other; urine microscopic with yeast and potential for yeast colon ization/contaminant --Acute diarrhea, Norovirus + and C. Difficile PCR +, although toxin antigen negative. He has risk for active disease and does have symptomatology and requires antibiotics for other processes, and therefore oral vancomycin added although unable to definitively confirm active disease with toxin antigen negative ( although risk for false negative); supportive care ongoing --MRSA surveillance + --Peripheral arterial disease by past evaluation of vascular team in addition to history DVT. 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; postop after 07/03 surgery with decreased LOC, seen bymedicine and adjustments per them in medications; further neuro workup per medicine / neuro team; awake/interactive as of my 07/05 visit --Hx QTc > 500 ms on prior EKG PLAN: --IV vancomycin/merrem, oral vancomycin; likely to need IV abx in light of bacteremia/abnormal MRI wound culture June 02, 2025 with Proteus /MRSA, PSA urine culture June 02, 2025 E Coli/ESBL Proteus urine culture 06/25 proteus blood culture 06/25 E Faecium vanco/amp sensitive; dapto sens but dose dependent wound culture 06/25 (surface) with MRSA and ESBL proteus and morganella --Check/review labs cultures and scans --Partial history Per nursing staff --d/w pharmacy/Dr Alcantara/ multidisciplinary team with respect to complexity above/below [...] caregivers regarding antimicrobial stewardship and antibiotic resistance. Duglas Andres MD 07/09/2025 [1] Allergies Allergen Reactions Keppra [Levetiracetam] Other (See Comments) Acute psychosis Bupropion Unknown (See Comments) Codeine Nausea Only Hydrocodone Unknown (See Comments) Ketorolac Tromethamine Unknown (See Comments) [2] Current Facility-Administered Medications Medication Dose Route Frequency Provider Last Rate Last Admin acetaminophen (TYLENOL) tablet 650 mg 650 mg Oral Q4H PRN Amanda Bermudez MD 650 mg at 06/29/25 0343 Or acetaminophen (TYLENOL) 160 MG/5ML oral solution 650 mg 650 mg Oral Q4H PRN Amanda Bermudez MD Or acetaminophen (TYLENOL) suppository 650 mg 650 mg Rectal Q4H PRN Amanda Bermudez MD aluminum-magnesium hydroxide-simethicone (MAALOX MAX) 400-400-40 MG/5ML suspension 15 mL 15 mL [id number] PRN Amanda Bermudez MD [Held by provider] apixaban (ELIQUIS) tablet 5 mg 5 mg Oral BID Amanda Bermudez MD ascorbic acid (VITAMIN C) tablet 500 mg 500 mg Oral Daily Amanda Bermudez MD 500 mg at 07/01/25 0830 baclofen (LIORESAL) tablet 10 mg 10 mg Oral Q12H Amanda Bermudez MD 10 mg at 07/01/25 2144 sennosides-docusate (PERICOLACE) 8.6-50 MG per tablet 2 tablet 2 tablet Oral BID PRN Amanda Bermudez MD And polyethylene glycol (MIRALAX) packet 17 g 17 g Oral Daily PRN Amanda Bermudez MD And bisacodyl (DULCOLAX) EC tablet 5 mg 5 mg Oral Daily PRN Amanda Bermudez MD And bisacodyl (DULCOLAX) suppository 10 mg 10 mg Rectal Daily PRN Amanda Bermudez MD Calcium Replacement - Follow Nurse / BPA Driven Protocol Not Applicable PRN Amanda Bermudez MD carvedilol (COREG) tablet 3.125 mg 3.125 mg Oral BID With Meals Amanda Bermudez MD 3.125 mg at 07/01/25 1712 clopidogrel (PLAVIX) tablet 75 mg 75 mg Oral Daily Amanda Bermudez MD 75 mg at 07/01/25 0830 famotidine (PEPCID) tablet 20 mg 20 mg Oral BID AC Arnoldo Crews PharmD 20 mg at 07/02/25 0649 finasteride (PROSCAR) tablet 5 mg 5 mg Oral Daily Amanda Bermudez MD 5 mg at 07/01/25 0830 folic acid (FOLVITE) tablet 1 mg 1 mg Oral Daily Amanda Bermudez MD 1 mg at 07/01/25 0830 gabapentin (NEURONTIN) capsule 300 mg 300 mg Oral Q8H Milena Jo APRN 300 mg at 07/02/25 0649 heparin (porcine) 5000 UNIT/ML injection 5,000 Units 5,000 Units Subcutaneous Q8H Lupe Albert APRN 5,000 Units at 07/02/25 0649 influenza vac split high-dose (FLUZONE HIGH DOSE) injection 0.5 mL 0.5 mL Intramuscular During Hospitalization Kris Boston DO insulin glargine (LANTUS, SEMGLEE) injection 56 Units 56 Units Subcutaneous Nightly Amanda Bermudez MD 56 Units at 07/01/25 2145 ipratropium-albuterol (DUO-NEB) nebulizer solution 3 mL 3 mL Nebulization Q6H PRN Amanda Bermudez MD lamoTRIgine (LaMICtal) tablet 100 mg 100 mg Oral Daily Amanda Bermudez MD 100 mg at 07/01/25 0830 lamoTRIgine (LaMICtal) tablet 250 mg 250 mg Oral Nightly Amanda Bermudez MD 250 mg at 07/01/25 2144 Magnesium Cardiology Dose Replacement - Follow Nurse / BPA Driven Protocol Not Applicable PRN Amanda Bermudez MD meropenem (MERREM) 500 mg in sodium chloride 0.9 % 100 mL MBP 500 mg Intravenous Q6H Duglas Andres MD 500 mg at 07/02/25 0359 methenamine (HIPREX) tablet 1 g 1 g Oral BID With Meals Amanda Bermudez MD 1 g at 07/01/25 1713 multivitamin with minerals 1 tablet 1 tablet Oral Daily Amanda Bermudez MD 1 tablet at 07/01/25 0830 naloxone (NARCAN) injection 0.4 mg 0.4 mg Intravenous Q5 Min PRN Amanda Bermudez MD nitroglycerin (NITROSTAT) SL tablet 0.4 mg 0.4 mg Sublingual Q5 Min PRN Amanda Bermudez MD ondansetron (ZOFRAN) injection 4 mg 4 mg Intravenous Q6H PRN Amanda Bermudez MD 4 mg at 06/29/25 1646 oxyCODONE-acetaminophen (PERCOCET) 10-325 MG per tablet 1 tablet 1 tablet Oral Q6H PRN Kris Boston DO 1 tablet at 07/02/25 0125 Pharmacy to dose vancomycin Not Applicable Continuous PRN Duglas Andres MD Phosphorus Replacement - Follow Nurse / BPA Driven Protocol Not Applicable PRN Amanda Bermudez MD Potassium Replacement - Follow Nurse / BPA Driven Protocol Not Applicable PRN Amanda Bermudez MD sacubitril-valsartan (ENTRESTO) 24-26 MG tablet 1 tablet 1 tablet Oral BID Amanda Bermudez MD 1 tablet at 07/01/25 2144 sodium chloride 0.9 % flush 10 mL 10 mL Intravenous PRN Ally Jeffers V, DIABETES NURSE sodium chloride 0.9 % flush 10 mL 10 mL Intravenous Q12H Amanda Bermudez MD 10 mL at 07/01/25 0832 sodium chloride 0.9 % flush 10 mL 10 mL Intravenous PRN Amanda Bermudez MD sodium chloride 0.9 % flush 10 mL 10 mL Intravenous Q12H Duglas Andres MD 10 mL at 07/01/25 2145 sodium chloride 0.9 % flush 10 mL 10 mL Intravenous PRN Duglas Andres MD sodium chloride 0.9 % flush 20 mL 20 mL Intravenous PRN Duglas Andres MD sodium chloride 0.9 % infusion 40 mL 40 mL Intravenous PRN Duglas Andres MD vancomycin (VANCOCIN) 1,000 mg in sodium chloride 0.9 % 250 mL IVPB-VTB 1,000 mg Intravenous Q12H Osmany Mccann, [facility] 250 mL/hr at 07/01/25 214 1,000 mg at 07/01/25 214 vancomycin (VANCOCIN) capsule 125 mg 125 mg Oral 4x Daily Duglas Andres MD 125 mg at Followed by [START ON 07/10/2025] vancomycin (VANCOCIN) capsule 125 mg 125 mg Oral TID Duglas Andres MD Followed by [START ON 07/17/2025] vancomycin (VANCOCIN) capsule 125 mg 125 mg Oral BID Duglas Andres MD Followed by [START ON 07/25/2025] vancomycin (VANCOCIN) capsule 125 mg 125 mg Oral Daily Duglas Andres MD Followed by [START ON 08/01/2025] vancomycin (VANCOCIN) capsule 125 mg 125 mg Oral Weekly Duglas Andres MD * Gigi Alcantara MD - 07/08/2025 11:43 AM EDT Images from the original note were not included. [facility] Medicine Services PROGRESS NOTE Patient Name: Trung Pool : [id number] Date of Admission: 06/25/2025 Primary Care Physician: Gustavo Mehta MD Subjective Subjective CC: LLE wound HPI: Patient in significant pain, states he does not feel too well, seems very weak and tired overall. States he did not have good sleep overnight. Long discussion regarding goals of care, met with hospice yesterday, discussed plan going forward, wants to have more information if he will need usp after amputation as he is opposed to this. If we are able to provide him with resources and assistance in getting stronger and avoiding usp he may be agreeable to amputation. Objective Objective Vital Signs: Temp: [97.3 ??F (36.3 ??C)-98.2 ??F (36.8 ??C)] 97.3 ??F (36.3 ??C) Heart Rate: [67-88] 85 Resp: [16-20] 20 BP: (107-147)/(58-99) 147/71 Physical Exam: Constitutional: No acute distress, awake, alert HENT: NCAT, mucous membranes moist Respiratory: Clear to auscultation bilaterally, respiratory effort normal room air Cardiovascular: RRR, no murmurs, rubs, or gallops Gastrointestinal: Positive bowel sounds, soft, nontender, nondistended Musculoskeletal: right BKA, left LLE erythema with wound vac, left foot toes amputated, Psychiatric: Appropriate affect, cooperative Neurologic: Oriented x 3, strength symmetric in all extremities, Cranial Nerves grossly intact to confrontation, speech clear Skin: No rashes, pale de los santos to BSD Results Reviewed: LAB RESULTS: Lab 07/08/25 0542 07/07/25 0343 07/06/25 1246 07/04/25 0347 07/02/25 0359 WBC 7.37 7.72 8.43 8.21 7.10 HEMOGLOBIN 9.7* 9.3* 9.5* 9.3* 9.8* HEMATOCRIT 35.5* 30.9* 31.1* 31.1* 32.8* PLATELETS 281 275 300 264 296 NEUTROS ABS -- -- -- 5.86 -- IMMATURE GRANS (ABS) -- -- -- 0.05 -- LYMPHS ABS -- -- -- 1.53 -- MONOS ABS -- -- -- 0.70 -- EOS ABS -- -- -- 0.04 -- MCV 84.7 79.0 77.8* 77.2* 79.0 Lab 07/08/25 0542 07/07/25 0343 07/06/25 1246 07/05/25 0434 07/04/25 0615 07/04/25 0347 SODIUM 131* 134* 134* 134* -- 135* POTASSIUM 6.0* 5.2 6.2* 5.1 5.9* 6.1* CHLORIDE 104 101 103 102 -- 106 CO2 17.4* 22.2 23.9 22.9 -- 21.3* ANION GAP 9.6 10.8 7.1 9.1 -- 7.7 BUN 19.5 18.3 16.5 14.0 -- 14.1 CREATININE 0.94 1.02 1.02 0.83 -- 0.78 EGFR 86.7 78.6 78.6 93.6 -- 95.3 GLUCOSE 120* 171* 119* 142* -- 126* CALCIUM 8.5* 8.6 8.5* 8.6 -- 8.3* MAGNESIUM 2.2 2.0 2.1 -- -- -- Lab 07/03/25 1900 PH, ARTERIAL 7.362 PCO2, ARTERIAL 41.7 PO2 ART 172.0* FIO2 60 HCO3 ART 23.6 BASE EXCESS ART -1.7* CARBOXYHEMOGLOBIN 1.1 Brief Urine Lab Results (Last result in the past 365 days) Color Clarity Blood Leuk Est Nitrite Protein CREAT Urine HCG 06/25/252000 Yellow Turbid Large (3+) Large (3+) Positive Trace Microbiology Results Abnormal Procedure Component Value - Date/Time Urine Culture - Urine, Indwelling Urethral Catheter [[id number]] (Abnormal) (Susceptibility) Collected: 06/25/252000 Lab Status: Final result Specimen: Urine from Indwelling Urethral Catheter Updated: 06/30/25 1001 Urine Culture >100,000 CFU/mL Proteus mirabilis Narrative: Colonization of the urinary tract without infection is common. Treatment is discouraged unless the patient is symptomatic, , or undergoing an invasive urologic procedure. Susceptibility Proteus mirabilis MURRAY Amoxicillin + Clavulanate Susceptible Ampicillin Resistant Ampicillin + Sulbactam Intermediate Cefazolin (Urine) Resistant Cefepime Resistant Ceftazidime Susceptible Ceftriaxone Resistant Cefuroxime axetil Resistant Ciprofloxacin Resistant Gentamicin Susceptible Levofloxacin Resistant Nitrofurantoin Resistant Piperacillin + Tazobactam Susceptible Trimethoprim + Sulfamethoxazole Resistant Blood Culture - Blood, Hand, Right [[id number]] (Abnormal) (Susceptibility) Collected: 06/25/252029 Lab Status: Edited Result - FINAL Specimen: Blood from Hand, Right Updated: 06/29/25 0713 Blood Culture Enterococcus faecium Comment: Infectious disease consultation is highly recommended. Isolated from Anaerobic Bottle Gram Stain Anaerobic Bottle Gram positive cocci in chains Narrative: Less than seven (7) mL's of blood was collected. Insufficient quantity may yield false negative results. requested linezolid & daptomycin 06/28/25 Susceptibility Enterococcus faecium MURRAY Method Not Specified Ampicillin Susceptible Daptomycin Susceptible dose dependent Gentamicin High Level Synergy Susceptible Linezolid Susceptible (C) [1] Vancomycin Susceptible [1] Appended report. These results have been appended to a previously final verified report. Wound Culture - Swab, Foot, Left [[id number]] (Abnormal) (Susceptibility) Collected: 06/25/25 1818 Lab Status: Final result Specimen: Swab from Foot, Left Updated: 06/29/25 0645 Wound Culture Heavy growth (4+) Staphylococcus aureus, MRSA Comment: Methicillin resistant Staphylococcus aureus, Patient may be an isolation risk. Moderate growth (3+) Morganella morganii ssp morganii Moderate growth (3+) Proteus mirabilis ESBL Comment: Consider infectious disease consult. Susceptibility results may not correlate to clinical outcomes. Gram Stain Few (2+) WBCs seen Few (2+) Gram positive cocci in pairs, chains and clusters Few (2+) Gram negative bacilli Susceptibility Staphylococcus aureus, MRSA MURRAY Clindamycin Susceptible Erythromycin Resistant Oxacillin Resistant Rifampin Susceptible Tetracycline Susceptible Trimethoprim + Sulfamethoxazole Resistant Vancomycin Susceptible Susceptibility Morganella morganii ssp morganii MURRAY Method Not Specified Amoxicillin + Clavulanate Resistant Ampicillin Resistant Ampicillin + Sulbactam Resistant Cefazolin (Non Urine) Resistant Cefepime Susceptible Cefotaxime Susceptible Ceftazidime Susceptible Cefuroxime axetil Resistant Ciprofloxacin Resistant Gentamicin Susceptible Levofloxacin Resistant Piperacillin + Tazobactam Susceptible Tetracycline Susceptible Trimethoprim + Sulfamethoxazole Resistant Susceptibility Proteus mirabilis ESBL MURRAY Ciprofloxacin Resistant Ertapenem Susceptible Levofloxacin Resistant Meropenem Susceptible Tetracycline Resistant Trimethoprim + Sulfamethoxazole Resistant Susceptibility Comments Morganella morganii ssp morganii Cefotaxime susceptibility can be used as a surrogate for ceftriaxone susceptibility Proteus mirabilis ESBL With the exception of urinary-sourced infections, aminoglycosides should not be used as monotherapy. Blood Culture ID, PCR - Blood, Hand, Right [[id number]] (Abnormal) Collected: 06/25/252029 Lab Status: Final result Specimen: Blood from Hand, Right Updated: 06/26/252101 BCID, PCR Enterococcus faecium. Zee/B (vancomycin resistance gene) not detected. Identification by BCID2 PCR. BOTTLE TYPE Anaerobic Bottle Narrative: Infectious disease consultation is highly recommended to rule out distant foci of infection. MRSA Screen, PCR (Inpatient) - Swab, Nares [[id number]] (Abnormal) Collected: 06/26/2545 Lab Status: Final result Specimen: Swab from Nares Updated: 06/26/2550 MRSA PCR Positive Narrative: The negative predictive value of this diagnostic test is high and should only be used to consider de-escalating anti-MRSA therapy. A positive result may indicate colonization with MRSA and must be correlated clinically. Gastrointestinal Panel, PCR - Stool, Per Rectum [[id number]] (Abnormal) Collected: 06/26/2545 Lab Status: Final result Specimen: Stool from Per Rectum Updated: 06/26/25 0850 Campylobacter Not Detected Plesiomonas shigelloides Not Detected Salmonella Not Detected Vibrio Not Detected Vibrio cholerae Not Detected Yersinia enterocolitica Not Detected Enteroaggregative E. coli (EAEC) Not Detected Enteropathogenic E. coli (EPEC) Not Detected Enterotoxigenic E. coli (ETEC) lt/st Not Detected Shiga-like toxin-producing E. coli (STEC) stx1/stx2 Not Detected Shigella/Enteroinvasive E. coli (EIEC) Not Detected Cryptosporidium Not Detected Cyclospora cayetanensis Not Detected Entamoeba histolytica Not Detected Giardia lamblia Not Detected Adenovirus F40/41 Not Detected Astrovirus Not Detected Norovirus GI/GII Detected Comment: If a positive Norovirus result is inconsistent with clinical presentation, the positive Norovirus result should be confirmed using another method. Rotavirus A Not Detected Sapovirus (I, II, IV or V) Not Detected Clostridioides difficile Toxin - Stool, Per Rectum [[id number]] (Abnormal) Collected: 06/26/2545 Lab Status: Final result Specimen: Stool from Per Rectum Updated: 06/26/25754 Narrative: The following orders were created for panel order Clostridioides difficile Toxin - Stool, Per Rectum. Procedure Abnormality Status --------- ------ Clostridioides difficile...[[id number]] Abnormal Final result Please view results for these tests on the individual orders. Clostridioides difficile Toxin, PCR - Stool, Per Rectum [[id number]] (Abnormal) Collected: 06/26/2545 Lab Status: Final result Specimen: Stool from Per Rectum Updated: 06/26/25754 Toxigenic C. difficile by PCR Detected Narrative: DNA from a toxigenic strain of C.difficile has been detected. No radiology results from the last 24 hrs Results for orders placed during the hospital encounter of 08/31/24 Adult Transthoracic Echo Complete W/ Cont if Necessary Per Protocol 09/12/2024 4:10 PM Interpretation Summary ??? Left ventricular systolic function is normal. Calculated left ventricular EF = 52.5% ??? There is a trivial pericardial effusion. ??? The aortic valve exhibits sclerosis. ??? Mitral annular calcification is present. I have personally reviewed the therapy plans: [] PT/OT/ ST Therapy Plans Current medications: Scheduled Meds:acetaminophen, 1,000 mg, Oral, Q8H apixaban, 5 mg, Oral, BID vitamin C, 500 mg, Oral, Daily baclofen, 10 mg, Oral, Q12H carvedilol, 3.125 mg, Oral, BID With Meals clopidogrel, 75 mg, Oral, Daily famotidine, 20 mg, Oral, BID AC finasteride, 5 mg, Oral, Daily folic acid, 1 mg, Oral, Daily gabapentin, 600 mg, Oral, Q8H insulin glargine, 56 Units, Subcutaneous, Nightly lamoTRIgine, 100 mg, Oral, Daily lamoTRIgine, 250 mg, Oral, Nightly meropenem, 500 mg, Intravenous, Q6H methenamine, 1 g, Oral, BID With Meals multivitamin with minerals, 1 tablet, Oral, Daily sacubitril-valsartan, 1 tablet, Oral, BID sodium chloride, 10 mL, Intravenous, Q12H sodium chloride, 10 mL, Intravenous, Q12H vancomycin, 1,000 mg, Intravenous, Q12H vancomycin, 125 mg, Oral, 4x Daily Followed by [START ON 07/10/2025] vancomycin, 125 mg, Oral, TID Followed by [START ON 07/17/2025] vancomycin, 125 mg, Oral, BID Followed by [START ON 07/25/2025] vancomycin, 125 mg, Oral, Daily Followed by [START ON 08/01/2025] vancomycin, 125 mg, Oral, Weekly Continuous Infusions:Pharmacy to dose vancomycin, PRN Meds:.??? aluminum-magnesium hydroxide-simethicone ??? senna-docusate sodium AND polyethylene glycol AND bisacodyl AND bisacodyl ??? Calcium Replacement - Follow Nurse / BPA Driven Protocol ??? diphenhydrAMINE-zinc acetate ??? influenza vaccine ??? ipratropium-albuterol ??? LORazepam ??? Magnesium Cardiology Dose Replacement - Follow Nurse / BPA Driven Protocol ??? [DISCONTINUED] Morphine AND naloxone ??? nitroglycerin ??? nitroglycerin ??? ondansetron ??? oxyCODONE ??? Pharmacy to dose vancomycin ??? Phosphorus Replacement - Follow Nurse / BPA Driven Protocol ??? Potassium Replacement - Follow Nurse / BPA Driven Protocol ??? Insert Peripheral IV AND sodium chloride ??? sodium chloride ??? sodium chloride ??? sodium chloride ??? sodium chloride Assessment & Plan Assessment & Plan Active Hospital Problems Diagnosis POA ??? Gastroenteritis due to norovirus [A08.11] Yes ??? Acute UTI (urinary tract infection) [N39.0] Yes ??? Diarrhea of presumed infectious origin [R19.7] Yes ??? Acute on chronic blood loss anemia [D62] Yes ??? BPH without obstruction/lower urinary tract symptoms [N40.0] Yes ??? GERD without esophagitis [K21.9] Yes ??? Bilateral inguinal hernia [K40.20] Yes ??? Cellulitis [L03.90] Yes ??? Type 2 diabetes mellitus, with long-term current use of insulin [E11.9, Z79.4] Not Applicable ??? Wound infection [T14.8XXA, L08.9] Unknown ??? PAD (peripheral artery disease) [I73.9] Yes ??? Coronary artery disease involving [place] coronary artery of [place] heart without angina pectoris [I25.10] Yes ??? Seizure disorder [G40.909] Yes ??? Primary hypertension [I10] Yes Resolved Hospital Problems No resolved problems to display. Brief Hospital Course to date: Trung Pool is a 70 y.o. male with a past medical history of coronary artery disease, peripheral artery disease, type 2 diabetes mellitus (on insulin), right above-knee amputation, and seizure disorder, who was admitted with hematuria, left foot stump drainage, fatigue, and diarrhea. Workup notable for norovirus and Enterococcus bacteremia. Urology, Infectious disease and vascular surgery consulted while inpatient. Planning for left lower extremity debridement and possible wound VAC placement with vascular surgery. Plan was partially entered by my partner and I have reviewed and updated as appropriat [email or web address] 07/07/25 Severe PAD History of right BKA, LLE revascularization and toe amputation Cellulitis and Left Lower Extremity Wound MRSA + Enterococcus bacteremia Patient with increased redness, fluid drainage and ulceration of the left stump MRI L foot showing edema in the distal first and second metatarsal diaphyses at the resection margins, osteomyelitis is not excluded, diffuse soft tissue edema and skin thickening about the remainingfoot. No definite abscess noted. Nondisplaced intra-articular fracture of the distal tibia with associated marrow edema. Follow-up CT angio left lower extremity revealing with moderate focal narrowing at the junction of the SFA and the popliteal artery. 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 Patency of the anterior and posterior tibial arteries difficult to assess due to significant venous contamination and heavy calcification. Left lower extremity arterial dopplers abnormal waveforms suggest inflow disease. Moderate 60% stenosis in the left SFA, the left CHIP appears to be occluded filling vis collaterals retrograde Blood cultures positive for Enterococcus faecium Infectious disease consulted, continue IV merrem, IV/PO vancomycin Vascular surgery consulted in the evaluation follows with Dr. Marcano; recommending more debridement of LLE with wound vac placement; on 07/03/2025 Resume Plavix and DVT ppx, resume Eliquis Patient has been adamant about not having any more amputation Currently on gabapentin 600 mg p.o. every 8 hours, baclofen 10 mg p.o. every 12 hours, oxycodone 10mg p.o. every 4 hours and Tylenol 100 mg p.o. every 8 hours by palliative service Palliative care on board to assist with pain management Follow up with vascular in two weeks with ABIs Patient is fearful regarding amputation, does not want to go to a usp, states that if we can avoid sending him to usp he may be agreeable to amputation. He is agreeable for short course of rehab/SNF after amputation however he states he does not want to but if ultimately he will end up in usp then he just wants to go home with hospice. Will discuss with PT/OT and case management regarding his options Acute UTI and hematuria History of BPH He reported blood in his urine with associated odor and had a De Los Santos catheter in place. UA with 4+ bacteria TNTC WBC. Urine culture with Proteus CT imaging revealed moderate bladder distention, small amount of gas in the bladder, and mildly decreased bladder wall thickening compared to prior exam. H&H stable,will resume eliquis 07/07 Urology consultation, continue de los santos and finasteride. Plan to follow up outpatient for senior living bladder management Norovirus GI PCR panel with norovirus, C. difficile toxin is positive but antigen negative suggest colonization CT imaging suggestive of proctitis Continue antibiotics as above, ID consulted and are following Acute on Chronic anemia, possible blood loss Continue to monitor H&H, stable will resume eliqius Transfuse PRBC if hemoglobin <7 Type 2 diabetes Previously well-controlled with A1c 7.6 (08/2024), A1c 7.82 Continue basal insulin Seizure disorder History of pseudoseizures Continue lamotrigine Addendum: Seizure like activity noted upon awaking from procedure. Aborted with propofol and versed. My partner Discussed with general neurology over the phone. Recommended PRN ativan for now and outpatient follow up with Dr. Anand as seizures are likely 2/2 anesthesia/procedure. S/p EEG. If seizurelike activity recurs while inpatient, recommended loading with 1g of Keppra and placing general neurology consult. No recurrence of pseudoseizure GERD without Esophagitis PPI Bilateral Inguinal Hernia, incidental finding on CT CT imaging revealed bilateral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 Left 07/25/2023 Procedure: INCISION AND DRAINAGE HEEL, WOUND VAC; Surgeon: Cecil Buenrostro Jr., MD; Location: [facility]; Service: Orthopedics; Laterality: Left; INCISION AND DRAINAGE LEG Left 07/03/2025 Procedure: DEBRIDEMENT WOUND, PLACEMENT OF WOUND VAC; Surgeon: Vaughn Hollingsworth DO; Location: [facility]; Service: Vascular; Laterality: Left; INTERVENTIONAL RADIOLOGY PROCEDURE N/A 05/02/2019 Procedure: IVC FILTER PLACEMENT; Surgeon: Pedro Zapien MD; Location: [facility]; Service: Interventional Radiology INTERVENTIONAL RADIOLOGY PROCEDURE Left 09/07/2024 Procedure: LEFT peroneal arteriovenous fistula embolization - Right femoral access; Surgeon: Jared Marcano MD; Location: [facility]; Service: Cardiovascular; Laterality: Left; Please coordinate with Gautam Patel ([facility]) [phone] who will bring coils LUMBAR DISCECTOMY N/A 05/03/2019 Procedure: THORACIC LAMINECTOMY T11-12; Surgeon: Tyree Tan MD; Location: [facility]; Service: Neurosurgery Pediatric History Patient Parents Not on file Other Topics Concern Not on file Social History Narrative Not on file family history includes Alcohol abuse in his father. Allergies[1] Medication: Current Medications[2] Antibiotics: Anti-Infectives (From admission, onward) Ordered Dose/Rate Route Frequency Start Stop 06/26/25 0831 vancomycin (VANCOCIN) capsule 125 mg Ordering Provider: Vaughn Hollingsworth DO Placed in Followed by Linked Group 125 mg Oral Weekly 08/01/25 0900 09/19/25 0859 06/26/25 0831 vancomycin (VANCOCIN) capsule 125 mg Ordering Provider: Vaughn Hollingsworth DO Placed in Followed by Linked Group 125 mg Oral Daily 07/25/25 0900 08/01/25 0859 06/26/25 0831 vancomycin (VANCOCIN) capsule 125 mg Ordering Provider: Vaughn Hollingsworth DO Placed in Followed by Linked Group 125 mg Oral 2 Times Daily 07/17/25 2100 07/24/25 2059 06/26/25 0831 vancomycin (VANCOCIN) capsule 125 mg Ordering Provider: Vaughn Hollingsworth DO Placed in Followed by Linked Group 125 mg Oral 3 Times Daily 07/10/25 1600 07/17/25 1559 07/03/25 0814 vancomycin (VANCOCIN) 1,000 mg in sodium chloride 0.9 % 250 mL IVPB-VTB Ordering Provider: Vaughn Hollingsworth DO 1,000 mg 250 mL/hr over 60 Minutes Intravenous Every 12 Hours 07/03/25 0900 07/12/25 0859 06/28/25 0724 vancomycin (VANCOCIN) 1,000 mg in sodium chloride 0.9 % 250 mL IVPB-VTB Status: Discontinued Ordering Provider: Duglas Andres MD 1,000 mg 250 mL/hr over 60 Minutes Intravenous Every 12 Hours 06/28/25 0900 07/03/25 0814 06/27/25 0812 Vancomycin HCl 1,250 mg in sodium chloride 0.9 % 250 mL VTB Status: Discontinued Ordering Provider: Osmany Mccann RPH 1,250 mg 200 mL/hr over 75 Minutes Intravenous Every 12 Hours 06/27/25 2100 06/27/25 0813 06/27/25 0813 Vancomycin HCl 1,250 mg in sodium chloride 0.9 % 250 mL VTB Status: Discontinued Ordering Provider: Osmany Mccann H, RPH 1,250 mg 200 mL/hr over 75 Minutes Intravenous Every 12 Hours 06/27/25 2100 06/28/25 0724 06/27/25 0856 vancomycin 2500 mg/500 mL 0.9% NS IVPB ([facility]) Ordering Provider: Osmany Mccann Niall, RPH 2,500 mg over 150 Minutes Intravenous Once 06/27/25 0945 06/27/25 1150 06/27/25 0808 vancomycin 2250 mg/500 mL 0.9% NS IVPB ([facility]) Status: Discontinued Ordering Provider: Osmany Mccann Niall, RPH 2,250 mg over 135 Minutes Intravenous Once 06/27/25 0900 06/27/25 0856 06/27/25 0739 Pharmacy to dose vancomycin Ordering Provider: Vaughn Hollingsworth, Not Applicable Continuous PRN 06/27/25 0739 07/11/25 0738 06/25/25 2312 DAPTOmycin (CUBICIN) 550 mg in sodium chloride 0.9 % 50 mL IVPB Status: Discontinued Ordering Provider: Amanda Bermudez MD 6 mg/kg ?? 94.6 kg (Adjusted) 100 mL/hr over 30 Minutes Intravenous Every 24 Hours 06/26/25 2100 06/27/25 0739 06/26/25 0847 meropenem (MERREM) 500 mg in sodium chloride 0.9 % 100 mL MBP Ordering Provider: Vaughn Hollingsworth DO 500 mg over 3 Hours Intravenous Every 6 Hours 06/26/25 1600 07/11/25 1559 06/25/25 2303 piperacillin-tazobactam (ZOSYN) 4.5 g IVPB in 100 mL NS MBP (CD) Status: Discontinued Ordering Provider: Amanda Bermudez MD 4.5 g over 4 Hours Intravenous Every 8 Hours 06/26/25 1200 06/26/25 0846 06/26/25 0831 vancomycin (VANCOCIN) capsule 125 mg Ordering Provider: Vaughn Hollingsworth DO Placed in Followed by [facility] 125 mg Oral 4 Times Daily 06/26/25 1200 07/10/25 1159 06/26/25 0847 meropenem (MERREM) 500 mg in sodium chloride 0.9 % 100 mL MBP Ordering Provider: Dugals Andres MD 500 mg over 30 Minutes Intravenous Once 06/26/25 0945 06/26/25 1047 06/26/25 0833 micafungin sodium (MYCAMINE) 100 mg in sodium chloride 0.9 % 100 mL MBP Ordering Provider: Duglas Andres MD 100 mg Intravenous Once 06/26/25 0930 06/26/25 0850 06/26/25 0113 methenamine (HIPREX) tablet 1 g Ordering Provider: Vaughn Hollingsworth, DO 1 g Oral 2 Times Daily With Meals 06/26/25 0800 06/25/252302 piperacillin-tazobactam (ZOSYN) 3.375 g IVPB in 100 mL NS MBP (CD) Status: Discontinued Ordering Provider: Amanda Bermudez MD 3.375 g over 30 Minutes Intravenous Once 06/26/25 0600 06/25/252 06/25/25 231 piperacillin-tazobactam (ZOSYN) 4.5 g IVPB in 100 mL NS MBP (CD) Ordering Provider: Amanda Bermudez MD 4.5 g over 30 Minutes Intravenous Once 06/26/25 0606/26/25 0606/25/252111 DAPTOmycin (CUBICIN) 550 mg in sodium chloride 0.9 % 50 mL IVPB Ordering Provider: Ally Jeffers APRN 6 mg/kg ?? 94.6 kg (Adjusted) 100 mL/hr over 30 Minutes Intravenous Once 06/25/25212706/25/25 2307 06/25/252111 meropenem (MERREM) 1,000 mg in sodium chloride 0.9 % 100 mL MBP Ordering Provider: Ally Jeffers APRN 1,000 mg over 30 Minutes Intravenous Once 06/25/25212706/25/252236 Review of Systems 07/07/25 Constitutional-- No Fever, chills or sweats. Appetite good, and no malaise. No fatigue. Heent-- No new vision, hearing or throat complaints. No epistaxis or oral sores. Denies odynophagiaor dysphagia. No flashers, floaters or eye pain. No odynophagia or dysphagia. No headache, photophobia or neck stiffness. CV-- No chest pain, palpitation or syncope Resp-- No SOB/cough/Hemoptysis GI- No hematochezia, melena, or hematemesis. Denies jaundice or chronic liver disease. -- chronic De Los Santos catheter, denies flank pain Lymph- no swollen lymph nodes in neck/axilla or groin. Heme- No active bruising or bleeding; no Hx of DVT or PE. MS-- no swelling or pain in the bones or joints of arms/legs. No new back pain. Neuro-- No acute focal weakness or numbness in the arms or legs. Chronically debilitated Full 12 point review of systems reviewed and negative otherwise for acute complaints, except for above Physical Exam: Vital Signs BP 122/63 (BP Location: Left arm, Patient Position: Lying) Pulse 86 Temp 98.2 ??F (36.8 ??C) (Oral) Resp 16 Ht 182.9 cm (72 ) Wt 117 kg (258 lb 13.1 oz) SpO2 95% BMI 35.10 kg/m?? GENERAL: awake/interactive HEENT: Normocephalic, atraumatic. No conjunctival injection. No [...] or HSM. EXT: see below : With De Los Santos catheter. MSK: FROM without joint effusions noted arms/legs. SKIN: Warm and dry without cutaneous eruptions on Inspection/palpation. NEURO: awake Left foot amputation noted surgical site covered. Vague erythema from mid burrell to foot with some light scale but no discrete mass bulge or fluctuance. No crepitus or bulla Right side amputation no obvious open wound or new redness/induration Laboratory Data Results from last 7 days Lab Units 07/07/25 0343 07/06/25 1246 07/04/25 0347 WBC 10*3/mm3 7.72 8.43 8.21 HEMOGLOBIN g/dL 9.3* 9.5* 9.3* HEMATOCRIT % 30.9* 31.1* 31.1* PLATELETS 10*3/mm3 275 300 264 Results from last 7 days Lab Units 07/07/25 0343 SODIUM mmol/L 134* POTASSIUM mmol/L 5.2 CHLORIDE mmol/L 101 CO2 mmol/L 22.2 BUN mg/dL 18.3 CREATININE mg/dL 1.02 GLUCOSE mg/dL 171* CALCIUM mg/dL 8.6 Estimated Creatinine Clearance: 87.8 mL/min (by C-G formula based on SCr of 1.02 mg/dL). Microbiology: Radiology: Imaging Results (Last 72 Hours) No results found for the last 72 hours. Impression: --acute left lower leg/foot cellulitis and wound infection, prior culture July 2024 with ESBL Klebsiella pneumoniae and pseudomonas aeruginosa, pseudomonas was sensitive to Merrem per microbiology lab at [facility]. Cx at [facility] as below; He has had multiple surgeries and multiple p ractitioners recommend higher level amputation which he has refused. On prior admissions, he has refused outpatient IV antibiotics and he has refused placement for longer durations of IV antibiotics.This refusal of care has placed him at increased risk for poor outcome. Earlier in 2024 he was discharged to the care of Dr. Oneal, his outpatient ID doctor and Dr Faust his automobile travel club counselor for furthercare/workup ; readmission May 2025 and June 2025 with acute worsening in redness/drainage to left lower extremity. High risk for further serious morbidity and other serious sequela includingpersistent/recurrent or nonhealing wounds, persistent/progressive or recurrent infection and risk for further functional/limb loss, higher-level amputation and other dire consequences including sepsis/mortalityetc. he remains opposed to amputation; he voices understanding his poor prognosis overallincluding risks for dire consequences; past Cx with MRSA/PSA/ESBL at prior admissions; culture June 02, 2025 with Proteus/MRSA/PSA; Cx June 2025 below; further imaging no definitive osteomyelitis but also unable to exclude per radiology at distal first/second MT; surgery with I&D 07/03 but no further bone debridement/amputation --E Faecium bacteremia ; NOT vanco resistant; ?foot source -v- other --Acute hematuria/UTI with chronic indwelling De Los Santos catheter. Proteus in culture so far; nursing reports De Los Santos catheter has been changed since admission; urology evaluation for further consideration of cystoscopy versus SP catheter or other; urine microscopic with yeast and potential for yeast colon ization/contaminant --Acute diarrhea, Norovirus + and C. Difficile PCR +, although toxin antigen negative. He has risk for active disease and does have symptomatology and requires antibiotics for other processes, and therefore oral vancomycin added although unable to definitively confirm active disease with toxin antigen negative ( although risk for false negative); supportive care ongoing --MRSA surveillance + --Peripheral arterial disease by past evaluation of vascular team in addition to history DVT. 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; postop after 07/03 surgery with decreased LOC, seen bymedicine and adjustments per them in medications; further neuro workup per medicine / neuro team; awake/interactive as of my 07/05 visit --Hx QTc > 500 ms on prior EKG PLAN: --IV vancomycin//merrem, oral vancomycin; likely to need IV abx in light of bacteremia/abnormal MRI wound culture June 02, 2025 with Proteus /MRSA, PSA urine culture June 02, 2025 E Coli/ESBL Proteus urine culture 06/25 proteus blood culture 06/25 E Faecium vanco/amp sensitive; dapto sens but dose dependent wound culture 06/25 (surface) with MRSA and ESBL proteus and morganella -Dr Marcano with plans for further debridement which should help give additional information regarding extent of disease at foot --Check/review labs cultures and scans --Partial history Per nursing staff --d/w Dr Alcantara/ multidisciplinary team with respect to complexity above/below [...] caregivers regarding antimicrobial stewardship and antibiotic resistance. Duglas Andres MD 07/07/2025 [1] Allergies Allergen Reactions Keppra [Levetiracetam] Other (See Comments) Acute psychosis Bupropion Unknown (See Comments) Codeine Nausea Only Hydrocodone Unknown (See Comments) Ketorolac Tromethamine Unknown (See Comments) [2] Current Facility-Administered Medications Medication Dose Route Frequency Provider Last Rate Last Admin acetaminophen (TYLENOL) tablet 650 mg 650 mg Oral Q4H PRN Amanda Bermudez MD 650 mg at 06/29/25 0343 Or acetaminophen (TYLENOL) 160 MG/5ML oral solution 650 mg 650 mg Oral Q4H PRN Amanda Bermudez MD Or acetaminophen (TYLENOL) suppository 650 mg 650 mg Rectal Q4H PRN Amanda Bermudez MD aluminum-magnesium hydroxide-simethicone (MAALOX MAX) 400-400-40 MG/5ML suspension 15 mL 15 mL [id number] PRN Amanda Bermudez MD [Held by provider] apixaban (ELIQUIS) tablet 5 mg 5 mg Oral BID Amanda Bermudez MD ascorbic acid (VITAMIN C) tablet 500 mg 500 mg Oral Daily Amanda Bermudez MD 500 mg at 07/01/25 0830 baclofen (LIORESAL) tablet 10 mg 10 mg Oral Q12H Amanda Bermudez MD 10 mg at 07/01/25 2144 sennosides-docusate (PERICOLACE) 8.6-50 MG per tablet 2 tablet 2 tablet Oral BID PRN Amanda Bermudez MD And polyethylene glycol (MIRALAX) packet 17 g 17 g Oral Daily PRN Amanda Bermudez MD And bisacodyl (DULCOLAX) EC tablet 5 mg 5 mg Oral Daily PRN Amanda Bermudez MD And bisacodyl (DULCOLAX) suppository 10 mg 10 mg Rectal Daily PRN Amanda Bermudez MD Calcium Replacement - Follow Nurse / BPA Driven Protocol Not Applicable PRN Amanda Bermudez MD carvedilol (COREG) tablet 3.125 mg 3.125 mg Oral BID With Meals Amanda Bermudez MD 3.125 mg at 07/01/25 1712 clopidogrel (PLAVIX) tablet 75 mg 75 mg Oral Daily Amanda Bermudez MD 75 mg at 07/01/25 0830 famotidine (PEPCID) tablet 20 mg 20 mg Oral BID AC Arnoldo Crews PharmD 20 mg at 07/02/25 0649 finasteride (PROSCAR) tablet 5 mg 5 mg Oral Daily Amanda Bermudez MD 5 mg at 07/01/25 0830 folic acid (FOLVITE) tablet 1 mg 1 mg Oral Daily Amanda Bermudez MD 1 mg at 07/01/25 0830 gabapentin (NEURONTIN) capsule 300 mg 300 mg Oral Q8H Milena Jo APRN 300 mg at 07/02/25 0649 heparin (porcine) 5000 UNIT/ML injection 5,000 Units 5,000 Units Subcutaneous Q8H uLpe Albert APRN 5,000 Units at 07/02/25 0649 influenza vac split high-dose (FLUZONE HIGH DOSE) injection 0.5 mL 0.5 mL Intramuscular During Hospitalization Kris Boston DO insulin glargine (LANTUS, SEMGLEE) injection 56 Units 56 Units Subcutaneous Nightly Amanda Bermudez MD 56 Units at 07/01/25 214 ipratropium-albuterol (DUO-NEB) nebulizer solution 3 mL 3 mL Nebulization Q6H PRN Amanda Bermudez MD lamoTRIgine (LaMICtal) tablet 100 mg 100 mg Oral Daily Amanda Bermudez MD 100 mg at 07/01/25 0830 lamoTRIgine (LaMICtal) tablet 250 mg 250 mg Oral Nightly Amanda Bermudez MD 250 mg at 07/01/25 2144 Magnesium Cardiology Dose Replacement - Follow Nurse / BPA Driven Protocol Not Applicable PRN Amanda Bermudez MD meropenem (MERREM) 500 mg in sodium chloride 0.9 % 100 mL MBP 500 mg Intravenous Q6H Duglas Andres MD 500 mg at 07/02/25 0359 methenamine (HIPREX) tablet 1 g 1 g Oral BID With Meals Amanda Bermudez MD 1 g at 07/01/25 1713 multivitamin with minerals 1 tablet 1 tablet Oral Daily Amanda Bermudez MD 1 tablet at 07/01/25 0830 naloxone (NARCAN) injection 0.4 mg 0.4 mg Intravenous Q5 Min PRN Amanda Bermudez MD nitroglycerin (NITROSTAT) SL tablet 0.4 mg 0.4 mg Sublingual Q5 Min PRN Amanda Bermudez MD ondansetron (ZOFRAN) injection 4 mg 4 mg Intravenous Q6H PRN Amanda Bermudez MD 4 mg at 06/29/25 1646 oxyCODONE-acetaminophen (PERCOCET) 10-325 MG per tablet 1 tablet 1 tablet Oral Q6H PRN Kris Boston DO 1 tablet at 07/02/25 0125 Pharmacy to dose vancomycin Not Applicable Continuous PRN Duglas Andres MD Phosphorus Replacement - Follow Nurse / BPA Driven Protocol Not Applicable PRN Amanda Bermudez MD Potassium Replacement - Follow Nurse / BPA Driven Protocol Not Applicable PRN Amanda Bermudez MD sacubitril-valsartan (ENTRESTO) 24-26 MG tablet 1 tablet 1 tablet Oral BID Amanda Bermudez MD 1 tablet at 07/01/25 2144 sodium chloride 0.9 % flush 10 mL 10 mL Intravenous PRN Ally Jeffers V, DIABETES NURSE sodium chloride 0.9 % flush 10 mL 10 mL Intravenous Q12H Amanda Bermudez MD 10 mL at 07/01/25 0832 sodium chloride 0.9 % flush 10 mL 10 mL Intravenous PRN Amanda Bermudez MD sodium chloride 0.9 % flush 10 mL 10 mL Intravenous Q12H Duglas Andres MD 10 mL at 07/01/25 2145 sodium chloride 0.9 % flush 10 mL 10 mL Intravenous PRN Duglas Andres MD sodium chloride 0.9 % flush 20 mL 20 mL Intravenous PRN Duglas Andres MD sodium chloride 0.9 % infusion 40 mL 40 mL Intravenous PRN Duglas Andres MD vancomycin (VANCOCIN) 1,000 mg in sodium chloride 0.9 % 250 mL IVPB-VTB 1,000 mg Intravenous Q12H Osmany Mccann [facility] 250 mL/hr at 07/01/252142 1,000 mg at 07/01/25 214 vancomycin (VANCOCIN) capsule 125 mg 125 mg Oral 4x Daily Duglsa Andres MD 125 mg at Followed by [START ON 07/10/2025] vancomycin (VANCOCIN) capsule 125 mg 125 mg Oral TID Duglas Andres MD Followed by [START ON 07/17/2025] vancomycin (VANCOCIN) capsule 125 mg 125 mg Oral BID Duglas Andres MD Followed by [START ON 07/25/2025] vancomycin (VANCOCIN) capsule 125 mg 125 mg Oral Daily Duglas Andres MD Followed by [START ON 08/01/2025] vancomycin (VANCOCIN) capsule 125 mg 125 mg Oral Weekly Duglas Andres MD * Talisha Resendez, DIABETES NURSE - 07/06/2025 2:55 PM EDT Palliative Care Daily Progress Note C/C: Patient considering options. S: Medical record reviewed. Follow-up visit for GOC and symptom management. Events noted. Patient discussing options and considering hospice services as does not want to go to [facility] for ongoing IV antibiotics. ROS: +pain, low back, constant aching. +pain, LLE from stump to above ankle, constant aching with burning, 03/22. +debility. +nausea, intermittent. +shortness of breath, intermittent, on RA. Denies vomiting and anxiety. LBM 07/05. O: Code Status: Code Status and Medical Interventions: CPR (Attempt to Resuscitate); Full Support Ordered at: 06/25/25 2310 Code Status (Patient has no pulse and is not breathing): CPR (Attempt to Resuscitate) Medical Interventions (Patient has pulse or is breathing): Full Support Level Of Support Discussed With: Patient Advanced Directives: Advance Directive Status: Patient has advance directive, copy in chart Goals of Care: Ongoing. Palliative Performance Scale Score: 30% BP 121/73 (BP Location: Left arm, Patient Position: Sitting) Pulse 87 Temp 97.9 ??F (36.6 ??C) (Oral) Resp 17 Ht 182.9 cm (72 ) Wt 117 kg (258 lb 13.1 oz) SpO2 92% BMI 35.10 kg/m?? Intake/Output Summary (Last 24 hours) at 07/06/2025 1456 Last data filed at 07/06/2025 0941 Gross per 24 hour Intake 700 ml Output 1370 ml Net -670 ml PE: General Appearance: Patient lying in bed, awake, alert, chronically ill appearing, cooperative, NAD HEENT: NC/AT, EOMI, anicteric, MMM, face relaxed Neck: supple, trachea midline, no JVD Lungs: CTA bilat, diminished in bases; respirations regular, even and unlabored; RR 16-18 on exam, on RA Heart: RRR, normal S1 and S2, no M/R/G Abdomen: Normal bowel sounds, soft, nontender, nondistended G/U: Deferred MSK/Extremities: RBKA, LLE with all toes amputated, wound vac in place Pulses: Pulses palpable and equal bilaterally Skin: Warm, dry Neurologic: A/Ox3, cooperative, PEREZ Psych: Calm, appropriate Meds: Reviewed and changes noted Labs: Results from last 7 days Lab Units 07/06/25 1246 WBC 10*3/mm3 8.43 HEMOGLOBIN g/dL 9.5* HEMATOCRIT % 31.1* PLATELETS 10*3/mm3 300 Results from last 7 days Lab Units 07/06/25 1246 SODIUM mmol/L 134* POTASSIUM mmol/L 6.2* CHLORIDE mmol/L 103 CO2 mmol/L 23.9 BUN mg/dL 16.5 CREATININE mg/dL 1.02 GLUCOSE mg/dL 119* CALCIUM mg/dL 8.5* Results from last 7 days Lab Units 07/06/25 1246 SODIUM mmol/L 134* POTASSIUM mmol/L 6.2* CHLORIDE mmol/L 103 CO2 mmol/L 23.9 BUN mg/dL 16.5 CREATININE mg/dL 1.02 CALCIUM mg/dL 8.5* GLUCOSE mg/dL 119* Imaging Results (Last 72 Hours) Procedure Component Value Units Date/Time CT Head Without Contrast [[id number]] Collected: 07/03/252109 Updated: 07/03/252113 Narrative: CT HEAD WO CONTRAST Date of Exam: 07/03/2025 8:35 PM EDT Indication: altered mental status. Comparison: None available. Technique: Axial CT images were obtained of the head without contrast administration. Automated exposure control and iterative construction methods were used. FINDINGS: Gutierrez-white differentiation is maintained and there is no evidence of intracranial hemorrhage, mass or mass effect. Age-related changes of the brain are present including volume loss and typical periventricular sequela of chronic small vessel ischemia. There is otherwise no evidence of intracranial hemorrhage, mass or mass effect. The ventricles are normal in size and configuration accounting for surrounding volume loss. The orbits are normal and the paranasal sinuses are grossly clear. Impression: Age-related changes of the brain as above, otherwise without evidence of acute intracranial abnormality. Electronically Signed: Ravi Swartz MD 07/03/2025 9:11 PM EDT Workstation ID: [id number] [place] Procedure [[id number]] Resulted: 07/03/251543 Updated: 07/03/251543 Diagnostics: Reviewed A: Gastroenteritis due to norovirus Primary hypertension Seizure disorder Coronary artery disease involving [place] coronary artery of [place] heart without angina pectoris PAD (peripheral artery disease) Wound infection Type 2 diabetes mellitus, with long-term current use of insulin Cellulitis Acute UTI (urinary tract infection) Diarrhea of presumed infectious origin Acute on chronic blood loss anemia BPH without obstruction/lower urinary tract symptoms GERD without esophagitis Bilateral inguinal hernia 70 y.o. male with seizure disorder, CAD, PAD, T2DM, UTI, anemia, GERD, cellulitis, pain. S/S: Pain -LLE cellulitis, MSK back pain -Gabapentin 600mg PO q 8 hours -Baclofen 10mg PO q 12 hours -Oxycodone 10mg PO q 4 hours prn moderate pain -Tylenol 1000mg PO q 8 hours scheduled 2. Debility -power chair assist at baseline 3. Nausea -continue Zofran 4mg IV q 6 hours prn N/V 4. GOC -Full Code/Full Support -per discussion with patient -he confirms that his sister is HCS, confirms code status -reviewed symptoms and medications -ongoing full treatment 07/06: Reviewed options for DNR/DNI in light of serious illness, reviewed continuing IV antibioticsversus stopping and electing hospice services. Patient considering options and is appreciative of information. Will follow up on Wednesday. P: Follow up visit. Reviewed pain and medications adjusted as above. Reviewed GOC, patient considering options and is to receive further hospice information. Will follow up on Wednesday. Palliative Care Team will continue to follow patient. Please do not hesitate to contact us regarding further sx mgmt or GOC needs. Talisha Resendez APRN 07/06/2025 Time spent: 30 minutes * Gigi Alcantara MD - 07/06/2025 11:37 AM EDT Images from the original note were not included. [facility] Medicine Services PROGRESS NOTE Patient Name: Trung Pool : 1955 Date of Admission: 06/25/2025 Primary Care Physician: Gustavo Mehta MD Subjective Subjective CC: LLE wound HPI: No significant overnight events, patient doing well this a.m., no complaints otherwise, no more episodes of pseudoseizures. Pain is tolerable. Long discussion regarding plan of care. Patient somewhatagreeable to rehab Objective Objective Vital Signs: Temp: [97.8 ??F (36.6 ??C)-98.7 ??F (37.1 ??C)] 97.8 ??F (36.6 ??C) Heart Rate: [71-101] 88 Resp: [17-18] 17 BP: (89-155)/(59-87) 96/59 Physical Exam: Constitutional: No acute distress, awake, alert HENT: NCAT, mucous membranes moist Respiratory: Clear to auscultation bilaterally, respiratory effort normal Cardiovascular: RRR, no murmurs, rubs, or gallops Gastrointestinal: Positive bowel sounds, soft, nontender, nondistended Musculoskeletal: No bilateral ankle edema, LLE wound VAC, right BKA Psychiatric: Appropriate affect, cooperative Neurologic: Oriented x 3, strength symmetric in all extremities, Cranial Nerves grossly intact to confrontation, speech clear Skin: No rashes Results Reviewed: LAB RESULTS: Lab 07/04/25 0347 07/02/25 0359 06/30/25 0429 WBC 8.21 7.10 5.48 HEMOGLOBIN 9.3* 9.8* 9.2* HEMATOCRIT 31.1* 32.8* 31.6* PLATELETS 264 296 259 NEUTROS ABS 5.86 -- 3.05 IMMATURE GRANS (ABS) 0.05 -- 0.02 LYMPHS ABS 1.53 -- 1.32 MONOS ABS 0.70 -- 0.64 EOS ABS 0.04 -- 0.40 MCV 77.2* 79.0 80.0 Lab 07/05/25 0434 07/04/25 0615 07/04/25 0347 07/02/25 0359 07/01/25 0329 06/30/25 0429 SODIUM 134* -- 135* 136 135* 138 POTASSIUM 5.1 5.9* 6.1* 5.1 4.7 4.7 CHLORIDE 102 -- 106 104 104 107 CO2 22.9 -- 21.3* 21.2* 21.3* 20.8* ANION GAP 9.1 -- 7.7 10.8 9.7 10.2 BUN 14.0 -- 14.1 16.9 13.7 12.3 CREATININE 0.83 -- 0.78 0.93 0.93 0.89 EGFR 93.6 -- 95.3 87.8 87.8 91.6 GLUCOSE 142* -- 126* 124* 70 164* CALCIUM 8.6 -- 8.3*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 Ordering Provider: Vaughn Hollingsworth DO Placed in Followed by Linked Group 125 mg Oral 3 Times Daily 07/10/25 1600 07/17/25 1559 07/03/25 0814 vancomycin (VANCOCIN) 1,000 mg in sodium chloride 0.9 % 250 mL IVPB-VTB Ordering Provider: Vaughn Hollingsworth DO 1,000 mg 250 mL/hr over 60 Minutes Intravenous Every 12 Hours 07/03/25 0900 07/12/25 0859 06/28/25 0724 vancomycin (VANCOCIN) 1,000 mg in sodium chloride 0.9 % 250 mL IVPB-VTB Status: Discontinued Ordering Provider: Duglas Andres MD 1,000 mg 250 mL/hr over 60 Minutes Intravenous Every 12 Hours 06/28/25 0900 07/03/25 0814 06/27/25 0812 Vancomycin HCl 1,250 mg in sodium chloride 0.9 % 250 mL VTB Status: Discontinued Ordering Provider: Osmany Mccann RPH 1,250 mg 200 mL/hr over 75 Minutes Intravenous Every 12 Hours 06/27/25 2100 06/27/25 0813 06/27/25 0813 Vancomycin HCl 1,250 mg in sodium chloride 0.9 % 250 mL VTB Status: Discontinued Ordering Provider: Osmany Mccann H, RPH 1,250 mg 200 mL/hr over 75 Minutes Intravenous Every 12 Hours 06/27/25 2100 06/28/25 0724 06/27/25 0856 vancomycin 2500 mg/500 mL 0.9% NS IVPB ([facility]) Ordering Provider: Osmany Mccann, RPH 2,500 mg over 150 Minutes Intravenous Once 06/27/25 0945 06/27/25 1150 06/27/25 0808 vancomycin 2250 mg/500 mL 0.9% NS IVPB ([facility]) Status: Discontinued Ordering Provider: Osmany Mccann, RPH 2,250 mg over 135 Minutes Intravenous Once 06/27/25 0900 06/27/25 0856 06/27/25 0739 Pharmacy to dose vancomycin Ordering Provider: Vaughn Hollingsworth, Not Applicable Continuous PRN 06/27/25 0739 07/11/25 0738 06/25/25 2312 DAPTOmycin (CUBICIN) 550 mg in sodium chloride 0.9 % 50 mL IVPB Status: Discontinued Ordering Provider: Amanda Bermudez MD 6 mg/kg ?? 94.6 kg (Adjusted) 100 mL/hr over 30 Minutes Intravenous Every 24 Hours 06/26/25 2100 06/27/25 0739 06/26/25 0847 meropenem (MERREM) 500 mg in sodium chloride 0.9 % 100 mL MBP Ordering Provider: Vaughn Hollingsworth DO 500 mg over 3 Hours Intravenous Every 6 Hours 06/26/25 1600 07/11/25 1559 06/25/25 2303 piperacillin-tazobactam (ZOSYN) 4.5 g IVPB in 100 mL NS MBP ([facility]) Status: Discontinued Ordering Provider: Amanda Bermudez MD 4.5 g over 4 Hours Intravenous Every 8 Hours 06/26/25 1200 06/26/25 0846 06/26/25 0831 vancomycin (VANCOCIN) capsule 125 mg Ordering Provider: Vaughn Hollingsworth DO Placed in Followed by Linked Group 125 mg Oral 4 Times Daily 06/26/25 1200 07/10/25 1159 06/26/25 0847 meropenem (MERREM) 500 mg in sodium chloride 0.9 % 100 mL MBP Ordering Provider: Duglas Andres MD 500 mg over 30 Minutes Intravenous Once 06/26/25 0945 06/26/25 1047 06/26/25 0833 micafungin sodium (MYCAMINE) 100 mg in sodium chloride 0.9 % 100 mL MBP Ordering Provider: Duglas Andres MD 100 mg Intravenous Once 06/26/25 0930 06/26/25 0850 06/26/25 0113 methenamine (HIPREX) tablet 1 g Ordering Provider: Vaughn Hollingsworth DO 1 g Oral 2 Times Daily With Meals 06/26/25 0800 06/25/252302 piperacillin-tazobactam (ZOSYN) 3.375 g IVPB in 100 mL NS MBP (CD) Status: Discontinued Ordering Provider: Amanda Bermudez MD 3.375 g over 30 Minutes Intravenous Once 06/26/25 0600 06/25/25 2312 06/25/25 231 piperacillin-tazobactam (ZOSYN) 4.5 g IVPB in 100 mL NS MBP (CD) Ordering Provider: Amanda Bermudez MD 4.5 g over 30 Minutes Intravenous Once 06/26/25 0606/26/25 0606/25/252111 DAPTOmycin (CUBICIN) 550 mg in sodium chloride 0.9 % 50 mL IVPB Ordering Provider: Ally Jeffers APRN 6 mg/kg ?? 94.6 kg (Adjusted) 100 mL/hr over 30 Minutes Intravenous Once 06/25/25212706/25/25 2307 06/25/252111 meropenem (MERREM) 1,000 mg in sodium chloride 0.9 % 100 mL MBP Ordering Provider: Ally Jeffers APRN 1,000 mg over 30 Minutes Intravenous Once 06/25/25212706/25/252236 Review of Systems 07/06/25 Constitutional-- No Fever, chills or sweats. Appetite good, and no malaise. No fatigue. Heent-- No new vision, hearing or throat complaints. No epistaxis or oral sores. Denies odynophagiaor dysphagia. No flashers, floaters or eye pain. No odynophagia or dysphagia. No headache, photophobia or neck stiffness. CV-- No chest pain, palpitation or syncope Resp-- No SOB/cough/Hemoptysis GI- No hematochezia, melena, or hematemesis. Denies jaundice or chronic liver disease. -- chronic De Los Santos catheter, denies flank pain Lymph- no swollen lymph nodes in neck/axilla or groin. Heme- No active bruising or bleeding; no Hx of DVT or PE. MS-- no swelling or pain in the bones or joints of arms/legs. No new back pain. Neuro-- No acute focal weakness or numbness in the arms or legs. Chronically debilitated Full 12 point review of systems reviewed and negative otherwise for acute complaints, except for above Physical Exam: Vital Signs BP 155/87 (BP Location: Left arm, Patient Position: Lying) Pulse 101 Temp 97.9 ??F (36.6 ??C) (Oral) Resp 18 Ht 182.9 cm (72 ) Wt 117 kg (258 lb 13.1 oz) SpO2 92% BMI 35.10 kg/m?? GENERAL: awake/interactive HEENT: Normocephalic, atraumatic. No conjunctival injection. No [...] or HSM. EXT: see below : With De Los Santos catheter. MSK: FROM without joint effusions noted arms/legs. SKIN: Warm and dry without cutaneous eruptions on Inspection/palpation. NEURO: awake Left foot amputation noted surgical site covered. Vague erythema from mid burrell to foot with some light scale but no discrete mass bulge or fluctuance. No crepitus or bulla Right side amputation no obvious open wound or new redness/induration Laboratory Data Results from last 7 days Lab Units 07/04/25 0347 07/02/25 0359 06/30/25 0429 WBC 10*3/mm3 8.21 7.10 5.48 HEMOGLOBIN g/dL 9.3* 9.8* 9.2* HEMATOCRIT % 31.1* 32.8* 31.6* PLATELETS 10*3/mm3 264 296 259 Results from last 7 days Lab Units 07/05/25 0434 SODIUM mmol/L 134* POTASSIUM mmol/L 5.1 CHLORIDE mmol/L 102 CO2 mmol/L 22.9 BUN mg/dL 14.0 CREATININE mg/dL 0.83 GLUCOSE mg/dL 142* CALCIUM mg/dL 8.6 Estimated Creatinine Clearance: 107.8 mL/min (by C-G formula based on SCr of 0.83 mg/dL). Microbiology: Radiology: Imaging Results (Last 72 Hours) Procedure Component Value Units Date/Time CT Head Without Contrast [[id number]] Collected: 07/03/252109 Updated: 07/03/252113 Narrative: CT HEAD WO CONTRAST Date of Exam: 07/03/2025 8:35 PM EDT Indication: altered mental status. Comparison: None available. Technique: Axial CT images were obtained of the head without contrast administration. Automated exposure control and iterative construction methods were used. FINDINGS: Gutierrez-white differentiation is maintained and there is no evidence of intracranial hemorrhage, mass or mass effect. Age-related changes of the brain are present including volume loss and typical periventricular sequela of chronic small vessel ischemia. There is otherwise no evidence of intracranial hemorrhage, mass or mass effect. The ventricles are normal in size and configuration accounting for surrounding volume loss. The orbits are normal and the paranasal sinuses are grossly clear. Impression: Age-related changes of the brain as above, otherwise without evidence of acute intracranial abnormality. Electronically Signed: Ravi Swartz MD 07/03/2025 9:11 PM EDT Workstation ID: [id number] Procedure [[id number]] Resulted: 07/03/251543 Updated: 07/03/251543 Impression: --acute left lower leg/foot cellulitis and wound infection, prior culture July 2024 with ESBL Klebsiella pneumoniae and pseudomonas aeruginosa, pseudomonas was sensitive to Merrem per microbiology lab at [facility]. Cx at [facility] as below; He has had multiple surgeries and multiple p ractitioners recommend higher level amputation which he has refused. On prior admissions, he has refused outpatient IV antibiotics and he has refused placement for longer durations of IV antibiotics.This refusal of care has placed him at increased risk for poor outcome. Earlier in 2024 he was discharged to the care of Dr. Oneal, his outpatient ID doctor and Dr Faust his automobile travel club counselor for furthercare/workup ; readmission May 2025 and June 2025 with acute worsening in redness/drainage to left lower extremity. High risk for further serious morbidity and other serious sequela includingpersistent/recurrent or nonhealing wounds, persistent/progressive or recurrent infection and risk for further functional/limb loss, higher-level amputation and other dire consequences including sepsis/mortalityetc. he remains opposed to amputation; he voices understanding his poor prognosis overallincluding risks for dire consequences; past Cx with MRSA/PSA/ESBL at prior admissions; culture June 02, 2025 with Proteus/MRSA/PSA; Cx June 2025 below; further imaging no definitive osteomyelitis but also unable to exclude per radiology at distal first/second MT; surgery with I&D 07/03 but no further bone debridement/amputation --E Faecium bacteremia ; NOT vanco resistant; ?foot source -v- other --Acute hematuria/UTI with chronic indwelling De Los Santos catheter. Proteus in culture so far; nursing reports De Los Santos catheter has been changed since admission; urology evaluation for further consideration of cystoscopy versus SP catheter or other; urine microscopic with yeast and potential for yeast colon ization/contaminant --Acute diarrhea, Norovirus + and C. Difficile PCR +, although toxin antigen negative. He has risk for active disease and does have symptomatology and requires antibiotics for other processes, and therefore oral vancomycin added although unable to definitively confirm active disease with toxin antigen negative ( although risk for false negative); supportive care ongoing --MRSA surveillance + --Peripheral arterial disease by past evaluation of vascular team in addition to history DVT. 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; postop after 07/03 surgery with decreased LOC, seen bymedicine and adjustments per them in medications; further neuro workup per medicine / neuro team; awake/interactive as of my 07/05 visit --Hx QTc > 500 ms on prior EKG PLAN: --IV vancomycin//merrem, oral vancomycin; likely to need IV abx in light of bacteremia/abnormal MRI wound culture June 02, 2025 with Proteus /MRSA, PSA urine culture June 02, 2025 E Coli/ESBL Proteus urine culture 06/25 proteus blood culture 06/25 E Faecium vanco/amp sensitive; dapto sens but dose dependent wound culture 06/25 (surface) with MRSA and ESBL proteus and morganella -Dr Marcano with plans for further debridement which should help give additional information regarding extent of disease at foot --Check/review labs cultures and scans --Partial history [...] caregivers regarding antimicrobial stewardship and antibiotic resistance. Duglas Andres MD 07/06/2025 [1] Allergies Allergen Reactions Keppra [Levetiracetam] Other (See Comments) Acute psychosis Bupropion Unknown (See Comments) Codeine Nausea Only Hydrocodone Unknown (See Comments) Ketorolac Tromethamine Unknown (See Comments) [2] Current Facility-Administered Medications Medication Dose Route Frequency Provider Last Rate Last Admin acetaminophen (TYLENOL) tablet 650 mg 650 mg Oral Q4H PRN Amanda Bermudez MD 650 mg at 06/29/25 0343 Or acetaminophen (TYLENOL) 160 MG/5ML oral solution 650 mg 650 mg Oral Q4H PRN Amanda Bermudez MD Or acetaminophen (TYLENOL) suppository 650 mg 650 mg Rectal Q4H PRN Amanda Bermudez MD aluminum-magnesium hydroxide-simethicone (MAALOX MAX) 400-400-40 MG/5ML suspension 15 mL 15 mL [id number] PRN Amanda Bermudez MD [Held by provider] apixaban (ELIQUIS) tablet 5 mg 5 mg Oral BID Amanda Bermudez MD ascorbic acid (VITAMIN C) tablet 500 mg 500 mg Oral Daily Amanda Bermudez MD 500 mg at 07/01/25 0830 baclofen (LIORESAL) tablet 10 mg 10 mg Oral Q12H Amanda Bermudez MD 10 mg at 07/01/25 2144 sennosides-docusate (PERICOLACE) 8.6-50 MG per tablet 2 tablet 2 tablet Oral BID PRN Amanda Bermudez MD And polyethylene glycol (MIRALAX) packet 17 g 17 g Oral Daily PRN Amanda Bermudez MD And bisacodyl (DULCOLAX) EC tablet 5 mg 5 mg Oral Daily PRN Amanda Bermudez MD And bisacodyl (DULCOLAX) suppository 10 mg 10 mg Rectal Daily PRN Amanda Bermudez MD Calcium Replacement - Follow Nurse / BPA Driven Protocol Not Applicable PRN Amanda Bermudez MD carvedilol (COREG) tablet 3.125 mg 3.125 mg Oral BID With Meals Amanda Bermudez MD 3.125 mg at 07/01/25 1712 clopidogrel (PLAVIX) tablet 75 mg 75 mg Oral Daily Amanda Bermudez MD 75 mg at 07/01/25 0830 famotidine (PEPCID) tablet 20 mg 20 mg Oral BID Arnoldo Ca PharmD 20 mg at 07/02/25 0649 finasteride (PROSCAR) tablet 5 mg 5 mg Oral Daily Amanda Bermudez MD 5 mg at 07/01/25 0830 folic acid (FOLVITE) tablet 1 mg 1 mg Oral Daily Amanda Bermudez MD 1 mg at 07/01/25 0830 gabapentin (NEURONTIN) capsule 300 mg 300 mg Oral Q8H Milena Jo APRN 300 mg at 07/02/25 0649 heparin (porcine) 5000 UNIT/ML injection 5,000 Units 5,000 Units Subcutaneous Q8H Lupe Albert APRN 5,000 Units at 07/02/25 0649 influenza vac split high-dose (FLUZONE HIGH DOSE) injection 0.5 mL 0.5 mL Intramuscular During Hospitalization Kris Boston DO insulin glargine (LANTUS, SEMGLEE) injection 56 Units 56 Units Subcutaneous Nightly Amanda Bermudez MD 56 Units at 07/01/25 2145 ipratropium-albuterol (DUO-NEB) nebulizer solution 3 mL 3 mL Nebulization Q6H PRN Amanda Bermudez MD lamoTRIgine (LaMICtal) tablet 100 mg 100 mg Oral Daily Amanda Bermudez MD 100 mg at 07/01/25 0830 lamoTRIgine (LaMICtal) tablet 250 mg 250 mg Oral Nightly Amanda Bermudez MD 250 mg at 07/01/25 2144 Magnesium Cardiology Dose Replacement - Follow Nurse / BPA Driven Protocol Not Applicable PRN Amanda Bermudez MD meropenem (MERREM) 500 mg in sodium chloride 0.9 % 100 mL MBP 500 mg Intravenous Q6H Duglas Andres MD 500 mg at 07/02/25 0359 methenamine (HIPREX) tablet 1 g 1 g Oral BID With Meals Amanda Bermudez MD 1 g at 07/01/25 1713 multivitamin with minerals 1 tablet 1 tablet Oral Daily Amanda Bermudez MD 1 tablet at 07/01/25 0830 naloxone (NARCAN) injection 0.4 mg 0.4 mg Intravenous Q5 Min PRN Amanda Bermudez MD nitroglycerin (NITROSTAT) SL tablet 0.4 mg 0.4 mg Sublingual Q5 Min PRN Amanda Bermudez MD ondansetron (ZOFRAN) injection 4 mg 4 mg Intravenous Q6H PRN Amanda Bermudez MD 4 mg at 06/29/25 1646 oxyCODONE-acetaminophen (PERCOCET) 10-325 MG per tablet 1 tablet 1 tablet Oral Q6H PRN Kris Boston DO 1 tablet at 07/02/25 0125 Pharmacy to dose vancomycin Not Applicable Continuous PRN Duglas Andres MD Phosphorus Replacement - Follow Nurse / BPA Driven Protocol Not Applicable PRN Amanda Bermudez MD Potassium Replacement - Follow Nurse / BPA Driven Protocol Not Applicable PRN Amanda Bermudez MD sacubitril-valsartan (ENTRESTO) 24-26 MG tablet 1 tablet 1 tablet Oral BID Amanda Bermudez MD 1 tablet at 07/01/25 2144 sodium chloride 0.9 % flush 10 mL 10 mL Intravenous PRN Ally Jeffers V, DIABETES NURSE sodium chloride 0.9 % flush 10 mL 10 mL Intravenous Q12H Amanda Bermudez MD 10 mL at 07/01/25 0832 sodium chloride 0.9 % flush 10 mL 10 mL Intravenous PRN Amanda Bermudez MD sodium chloride 0.9 % flush 10 mL 10 mL Intravenous Q12H Duglas Andres MD 10 mL at 07/01/25 2145 sodium chloride 0.9 % flush 10 mL 10 mL Intravenous PRN Duglas Andres MD sodium chloride 0.9 % flush 20 mL 20 mL Intravenous PRN Duglas Andres MD sodium chloride 0.9 % infusion 40 mL 40 mL Intravenous PRN Duglas Andres MD vancomycin (VANCOCIN) 1,000 mg in sodium chloride 0.9 % 250 mL IVPB-VTB 1,000 mg Intravenous Q12H Osmany Mccann H, RPH 250 mL/hr at 07/01/252142 1,000 mg at 07/01/252142 vancomycin (VANCOCIN) capsule 125 mg 125 mg Oral 4x Daily Duglas Andres MD 125 mg at Followed by [START ON 07/10/2025] vancomycin (VANCOCIN) capsule 125 mg 125 mg Oral TID Duglas Andres MD Followed by [START ON 07/17/2025] vancomycin (VANCOCIN) capsule 125 mg 125 mg Oral BID Duglas Andres MD Followed by [START ON 07/25/2025] vancomycin (VANCOCIN) capsule 125 mg 125 mg Oral Daily Duglas Andres MD Followed by [START ON 08/01/2025] vancomycin (VANCOCIN) capsule 125 mg 125 mg Oral Weekly Duglas Andres MD * Gigi Alcantara MD - 07/05/2025 11:26 AM EDT Images from the original note were not included. [facility] Medicine Services PROGRESS NOTE Patient Name: Trung Pool : [id number] Date of Admission: 06/25/2025 Primary Care Physician: Gustavo Mehta MD Subjective Subjective CC: LLE wound HPI: No significant overnight events, patient seems to be doing much better today, states his pain is somewhat better on current regimen, no more episodes of pseudoseizures Objective Objective Vital Signs: Temp: [97.4 ??F (36.3 ??C)-97.8 ??F (36.6 ??C)] 97.6 ??F (36.4 ??C) Heart Rate: [66-94] 69 Resp: [16-18] 16 BP: (133-150)/(55-83) 135/55 Physical Exam Cardiovascular: Rate and Rhythm: Normal rate. Pulses: Normal pulses. Pulmonary: Effort: Pulmonary effort is normal. No respiratory distress. Abdominal: General: There is no distension. Palpations: Abdomen is soft. Tenderness: There is no abdominal tenderness. There is no guarding or rebound. Musculoskeletal: Right lower leg: No edema. Left lower leg: No edema. Comments: LLE wrapped, Right BKA Skin: General: Skin is warm. Neurological: Mental Status: He is alert. Psychiatric: Mood and Affect: Mood normal. Behavior: Behavior normal. Results Reviewed: LAB RESULTS: Lab 07/04/2534607/02/2535806/30/2542806/29/25622 WBC 8.21 7.10 5.48 7.30 HEMOGLOBIN 9.3* 9.8* 9.2* 9.0* HEMATOCRIT 31.1* 32.8* 31.6* 29.2* PLATELETS 264 296 259 289 NEUTROS ABS 5.86 -- 3.05 4.71 IMMATURE GRANS (ABS) 0.05 -- 0.02 0.03 LYMPHS ABS 1.53 -- 1.32 1.44 MONOS ABS 0.70 -- 0.64 0.64 EOS ABS 0.04 -- 0.40 0.42* MCV 77.2* 79.0 80.0 75.5* Lab 07/05/25 0434 07/04/25 0615 07/04/2534607/02/2535807/01/2532806/30/25428 SODIUM 134* -- 135* 136 135* 138 POTASSIUM 5.1 5.9* 6.1* 5.1 4.7 4.7 CHLORIDE 102 -- 106 104 104 107 CO2 22.9 -- 21.3* 21.2* 21.3* 20.8* ANION GAP 9.1 -- 7.7 10.8 9.7 10.2 BUN 14.0 -- 14.1 16.9 13.7 12.3 CREATININE 0.83 -- 0.78 0.93 0.93 0.89 EGFR 93.6 -- 95.3 87.8 87.8 91.6 GLUCOSE 142* -- 126* 124* 70 164* CALCIUM 8.6 -- 8.3* 8.6 8.7 8.4* Lab 07/03/25 1900 PH, ARTERIAL 7.362 PCO2, ARTERIAL 41.7 PO2 ART 172.0* FIO2 60 HCO3 ART 23.6 BASE EXCESS ART -1.7* CARBOXYHEMOGLOBIN 1.1 Brief Urine Lab Results (Last result in the past 365 days) Color Clarity Blood Leuk Est Nitrite Protein CREAT Urine [facility] [place] 06/25/252000 Yellow Turbid Large (3+) Large (3+) Positive Trace Brief Urine Lab Results (Last result in the past 365 days) Color Clarity Blood Leuk Est Nitrite Protein CREAT Urine [facility] [place] 06/25/252000 Yellow Turbid Large (3+) Large (3+) Positive Trace Brief Urine Lab Results (Last result in the past 365 days) Color Clarity Blood Leuk Est Nitrite Protein CREAT Urine [facility] [place] 06/25/252000 Yellow Turbid Large (3+) Large (3+) Positive Trace Microbiology Results Abnormal Procedure Component Value - Date/Time Urine Culture - Urine, Indwelling Urethral Catheter [[id number]] (Abnormal) (Susceptibility) Collected: 06/25/252000 Lab Status: Final result Specimen: Urine from Indwelling Urethral Catheter Updated: 06/30/25 1001 Urine Culture >100,000 CFU/mL Proteus mirabilis Narrative: Colonization of the urinary tract without infection is common. Treatment is discouraged unless the patient is symptomatic, , or undergoing an invasive urologic procedure. Susceptibility Proteus mirabilis MURRAY Amoxicillin + Clavulanate Susceptible Ampicillin Resistant Ampicillin + Sulbactam Intermediate Cefazolin (Urine) Resistant Cefepime Resistant Ceftazidime Susceptible Ceftriaxone Resistant Cefuroxime axetil Resistant Ciprofloxacin Resistant Gentamicin Susceptible Levofloxacin Resistant Nitrofurantoin Resistant Piperacillin + Tazobactam Susceptible Trimethoprim + Sulfamethoxazole Resistant Blood Culture - Blood, Hand, Right [[id number]] (Abnormal) (Susceptibility) Collected: 06/25/252029 Lab Status: Edited Result - FINAL Specimen: Blood from Hand, Right Updated: 06/29/25 0713 Blood Culture Enterococcus faecium Comment: Infectious disease consultation is highly recommended. Isolated from Anaerobic Bottle Gram Stain Anaerobic Bottle Gram positive cocci in chains Narrative: Less than seven (7) mL's of blood was collected. Insufficient quantity may yield false negative results. requested linezolid & daptomycin 06/28/25 Susceptibility Enterococcus faecium MURRAY Method Not Specified Ampicillin Susceptible Daptomycin Susceptible dose dependent Gentamicin High Level Synergy Susceptible Linezolid Susceptible (C) [1] Vancomycin Susceptible [1] Appended report. These results have been appended to a previously final verified report. Wound Culture - Swab, Foot, Left [[id number]] (Abnormal) (Susceptibility) Collected: 06/25/258 Lab Status: Final result Specimen: Swab from Foot, Left Updated: 06/29/25 0645 Wound Culture Heavy growth (4+) Staphylococcus aureus, MRSA Comment: Methicillin resistant Staphylococcus aureus, Patient may be an isolation risk. Moderate growth (3+) Morganella morganii ssp morganii Moderate growth (3+) Proteus mirabilis ESBL Comment: Consider infectious disease consult. Susceptibility results may not correlate to clinical outcomes. Gram Stain Few (2+) WBCs seen Few (2+) Gram positive cocci in pairs, chains and clusters Few (2+) Gram negative bacilli Susceptibility Staphylococcus aureus, MRSA MURRAY Clindamycin Susceptible Erythromycin Resistant Oxacillin Resistant Rifampin Susceptible Tetracycline Susceptible Trimethoprim + Sulfamethoxazole Resistant Vancomycin Susceptible Susceptibility Morganella morganii ssp morganii MURRAY Method Not Specified Amoxicillin + Clavulanate Resistant Ampicillin Resistant Ampicillin + Sulbactam Resistant Cefazolin (Non Urine) Resistant Cefepime Susceptible Cefotaxime Susceptible Ceftazidime Susceptible Cefuroxime axetil Resistant Ciprofloxacin Resistant Gentamicin Susceptible Levofloxacin Resistant Piperacillin + Tazobactam Susceptible Tetracycline Susceptible Trimethoprim + Sulfamethoxazole Resistant Susceptibility Proteus mirabilis ESBL MURRAY Ciprofloxacin Resistant Ertapenem Susceptible Levofloxacin Resistant Meropenem Susceptible Tetracycline Resistant Trimethoprim + Sulfamethoxazole Resistant Susceptibility Comments Morganella morganii ssp morganii Cefotaxime susceptibility can be used as a surrogate for ceftriaxone susceptibility Proteus mirabilis ESBL With the exception of urinary-sourced infections, aminoglycosides should not be used as monotherapy. Blood Culture ID, PCR - Blood, Hand, Right [[id number]] (Abnormal) Collected: 06/25/252029 Lab Status: Final result Specimen: Blood from Hand, Right Updated: 06/26/252101 BCID, PCR Enterococcus faecium. Zee/B (vancomycin resistance gene) not detected. Identification by BCID2 PCR. BOTTLE TYPE Anaerobic Bottle Narrative: Infectious disease consultation is highly recommended to rule out distant foci of infection. MRSA Screen, PCR (Inpatient) - Swab, Nares [[id number]] (Abnormal) Collected: 06/26/2545 Lab Status: Final result Specimen: Swab from Nares Updated: 06/26/25 0850 MRSA PCR Positive Narrative: The negative predictive value of this diagnostic test is high and should only be used to consider de-escalating anti-MRSA therapy. A positive result may indicate colonization with MRSA and must be correlated clinically. Gastrointestinal Panel, PCR - Stool, Per Rectum [[id number]] (Abnormal) Collected: 06/26/2545 Lab Status: Final result Specimen: Stool from Per Rectum Updated: 06/26/25 0850 Campylobacter Not Detected Plesiomonas shigelloides Not Detected Salmonella Not Detected Vibrio Not Detected Vibrio cholerae Not Detected Yersinia enterocolitica Not Detected Enteroaggregative E. coli (EAEC) Not Detected Enteropathogenic E. coli (EPEC) Not Detected Enterotoxigenic E. coli (ETEC) lt/st Not Detected Shiga-like toxin-producing E. coli (STEC) stx1/stx2 Not Detected Shigella/Enteroinvasive E. coli (EIEC) Not Detected Cryptosporidium Not Detected Cyclospora cayetanensis Not Detected Entamoeba histolytica Not Detected Giardia lamblia Not Detected Adenovirus F40/41 Not Detected Astrovirus Not Detected Norovirus GI/GII Detected Comment: If a positive Norovirus result is inconsistent with clinical presentation, the positive Norovirus result should be confirmed using another method. Rotavirus A Not Detected Sapovirus (I, II, IV or V) Not Detected Clostridioides difficile Toxin - Stool, Per Rectum [[id number]] (Abnormal) Collected: 06/26/2545 Lab Status: Final result Specimen: Stool from Per Rectum Updated: 06/26/25 0755 Narrative: The following orders were created for panel order Clostridioides difficile Toxin - Stool, Per Rectum. Procedure Abnormality Status --------- ------ Clostridioides difficile...[[id number]] Abnormal Final result Please view results for these tests on the individual orders. Clostridioides difficile Toxin, PCR - Stool, Per Rectum [[id number]] (Abnormal) Collected: 06/26/25 0046 Lab Status: Final result Specimen: Stool from Per Rectum Updated: 06/26/25 0755 Toxigenic C. difficile by PCR Detected Narrative: DNA from a toxigenic strain of C.difficile has been detected. Microbiology Results Abnormal Procedure Component Value - Date/Time Urine Culture - Urine, Indwelling Urethral Catheter [[id number]] (Abnormal) (Susceptibility) Collected: 06/25/252000 Lab Status: Final result Specimen: Urine from Indwelling Urethral Catheter Updated: 06/30/25 1001 Urine Culture >100,000 CFU/mL Proteus mirabilis Narrative: Colonization of the urinary tract without infection is common. Treatment is discouraged unless the patient is symptomatic, , or undergoing an invasive urologic procedure. Susceptibility Proteus mirabilis MURRAY Amoxicillin + Clavulanate Susceptible Ampicillin Resistant Ampicillin + Sulbactam Intermediate Cefazolin (Urine) Resistant Cefepime Resistant Ceftazidime Susceptible Ceftriaxone Resistant Cefuroxime axetil Resistant Ciprofloxacin Resistant Gentamicin Susceptible Levofloxacin Resistant Nitrofurantoin Resistant Piperacillin + Tazobactam Susceptible Trimethoprim + Sulfamethoxazole Resistant Blood Culture - Blood, Hand, Right [[id number]] (Abnormal) (Susceptibility) Collected: 06/25/252029 Lab Status: Edited Result - FINAL Specimen: Blood from Hand, Right Updated: 06/29/25 0713 Blood Culture Enterococcus faecium Comment: Infectious disease consultation is highly recommended. Isolated from Anaerobic Bottle Gram Stain Anaerobic Bottle Gram positive cocci in chains Narrative: Less than seven (7) mL's of blood was collected. Insufficient quantity may yield false negative results. requested linezolid & daptomycin 06/28/25 Susceptibility Enterococcus faecium MURRAY Method Not Specified Ampicillin Susceptible Daptomycin Susceptible dose dependent Gentamicin High Level Synergy Susceptible Linezolid Susceptible (C) [1] Vancomycin Susceptible [1] Appended report. These results have been appended to a previously final verified report. Wound Culture - Swab, Foot, Left [[id number]] (Abnormal) (Susceptibility) Collected: 06/25/25 1818 Lab Status: Final result Specimen: Swab from Foot, Left Updated: 06/29/25 0645 Wound Culture Heavy growth (4+) Staphylococcus aureus, MRSA Comment: Methicillin resistant Staphylococcus aureus, Patient may be an isolation risk. Moderate growth (3+) Morganella morganii ssp morganii Moderate growth (3+) Proteus mirabilis ESBL Comment: Consider infectious disease consult. Susceptibility results may not correlate to clinical outcomes. Gram Stain Few (2+) WBCs seen Few (2+) Gram positive cocci in pairs, chains and clusters Few (2+) Gram negative bacilli Susceptibility Staphylococcus aureus, MRSA MURRAY Clindamycin Susceptible Erythromycin Resistant Oxacillin Resistant Rifampin Susceptible Tetracycline Susceptible Trimethoprim + Sulfamethoxazole Resistant Vancomycin Susceptible Susceptibility Morganella morganii ssp morganii MURRAY Method Not Specified Amoxicillin + Clavulanate Resistant Ampicillin Resistant Ampicillin + Sulbactam Resistant Cefazolin (Non Urine) Resistant Cefepime Susceptible Cefotaxime Susceptible Ceftazidime Susceptible Cefuroxime axetil Resistant Ciprofloxacin Resistant Gentamicin Susceptible Levofloxacin Resistant Piperacillin + Tazobactam Susceptible Tetracycline Susceptible Trimethoprim + Sulfamethoxazole Resistant Susceptibility Proteus mirabilis ESBL MURRAY Ciprofloxacin Resistant Ertapenem Susceptible Levofloxacin Resistant Meropenem Susceptible Tetracycline Resistant Trimethoprim + Sulfamethoxazole Resistant Susceptibility Comments Morganella morganii ssp morganii Cefotaxime susceptibility can be used as a surrogate for ceftriaxone susceptibility Proteus mirabilis ESBL With the exception of urinary-sourced infections, aminoglycosides should not be used as monotherapy. Blood Culture ID, PCR - Blood, Hand, Right [[id number]] (Abnormal) Collected: 06/25/25 2030 Lab Status: Final result Specimen: Blood from Hand, Right Updated: 06/26/252101 BCID, PCR Enterococcus faecium. Zee/B (vancomycin resistance gene) not detected. Identification by BCID2 PCR. BOTTLE TYPE Anaerobic Bottle Narrative: Infectious disease consultation is highly recommended to rule out distant foci of infection. MRSA Screen, PCR (Inpatient) - Swab, Nares [[id number]] (Abnormal) Collected: 06/26/25 0046 Lab Status: Final result Specimen: Swab from Nares Updated: 06/26/25 0850 MRSA PCR Positive Narrative: The negative predictive value of this diagnostic test is high and should only be used to consider de-escalating anti-MRSA therapy. A positive result may indicate colonization with MRSA and must be correlated clinically. Gastrointestinal Panel, PCR - Stool, Per Rectum [[id number]] (Abnormal) Collected: 06/26/2545 Lab Status: Final result Specimen: Stool from Per Rectum Updated: 06/26/25 0850 Campylobacter Not Detected Plesiomonas shigelloides Not Detected Salmonella Not Detected Vibrio Not Detected Vibrio cholerae Not Detected Yersinia enterocolitica Not Detected Enteroaggregative E. coli (EAEC) Not Detected Enteropathogenic E. coli (EPEC) Not Detected Enterotoxigenic E. coli (ETEC) lt/st Not Detected Shiga-like toxin-producing E. coli (STEC) stx1/stx2 Not Detected Shigella/Enteroinvasive E. coli (EIEC) Not Detected Cryptosporidium Not Detected Cyclospora cayetanensis Not Detected Entamoeba histolytica Not Detected Giardia lamblia Not Detected Adenovirus F40/41 Not Detected Astrovirus Not Detected Norovirus GI/GII Detected Comment: If a positive Norovirus result is inconsistent with clinical presentation, the positive Norovirus result should be confirmed using another method. Rotavirus A Not Detected Sapovirus (I, II, IV or V) Not Detected Clostridioides difficile Toxin - Stool, Per Rectum [[id number]] (Abnormal) Collected: 06/26/2545 Lab Status: Final result Specimen: Stool from Per Rectum Updated: 06/26/25754 Narrative: The following orders were created for panel order Clostridioides difficile Toxin - Stool, Per Rectum. Procedure Abnormality Status --------- ------ Clostridioides difficile...[[id number]] Abnormal Final result Please view results for these tests on the individual orders. Clostridioides difficile Toxin, PCR - Stool, Per Rectum [[id number]] (Abnormal) Collected: 06/26/2545 Lab Status: Final result Specimen: Stool from Per Rectum Updated: 06/26/25754 Toxigenic C. difficile by PCR Detected Narrative: DNA from a toxigenic strain of C.difficile has been detected. Microbiology Results Abnormal Procedure Component Value - Date/Time Urine Culture - Urine, Indwelling Urethral Catheter [[id number]] (Abnormal) (Susceptibility) Collected: 06/25/252000 Lab Status: Final result Specimen: Urine from Indwelling Urethral Catheter Updated: 06/30/25 1001 Urine Culture >100,000 CFU/mL Proteus mirabilis Narrative: Colonization of the urinary tract without infection is common. Treatment is discouraged unless the patient is symptomatic, , or undergoing an invasive urologic procedure. Susceptibility Proteus mirabilis MURRAY Amoxicillin + Clavulanate Susceptible Ampicillin Resistant Ampicillin + Sulbactam Intermediate Cefazolin (Urine) Resistant Cefepime Resistant Ceftazidime Susceptible Ceftriaxone Resistant Cefuroxime axetil Resistant Ciprofloxacin Resistant Gentamicin Susceptible Levofloxacin Resistant Nitrofurantoin Resistant Piperacillin + Tazobactam Susceptible Trimethoprim + Sulfamethoxazole Resistant Blood Culture - Blood, Hand, Right [[id number]] (Abnormal) (Susceptibility) Collected: 06/25/252029 Lab Status: Edited Result - FINAL Specimen: Blood from Hand, Right Updated: 06/29/25 0713 Blood Culture Enterococcus faecium Comment: Infectious disease consultation is highly recommended. Isolated from Anaerobic Bottle Gram Stain Anaerobic Bottle Gram positive cocci in chains Narrative: Less than seven (7) mL's of blood was collected. Insufficient quantity may yield false negative results. requested linezolid & daptomycin 06/28/25 Susceptibility Enterococcus faecium MURRAY Method Not Specified Ampicillin Susceptible Daptomycin Susceptible dose dependent Gentamicin High Level Synergy Susceptible Linezolid Susceptible (C) [1] Vancomycin Susceptible [1] Appended report. These results have been appended to a previously final verified report. Wound Culture - Swab, Foot, Left [[id number]] (Abnormal) (Susceptibility) Collected: 06/25/25 1818 Lab Status: Final result Specimen: Swab from Foot, Left Updated: 06/29/25 0645 Wound Culture Heavy growth (4+) Staphylococcus aureus, MRSA Comment: Methicillin resistant Staphylococcus aureus, Patient may be an isolation risk. Moderate growth (3+) Morganella morganii ssp morganii Moderate growth (3+) Proteus mirabilis ESBL Comment: Consider infectious disease consult. Susceptibility results may not correlate to clinical outcomes. Gram Stain Few (2+) WBCs seen Few (2+) Gram positive cocci in pairs, chains and clusters Few (2+) Gram negative bacilli Susceptibility Staphylococcus aureus, MRSA MURRAY Clindamycin Susceptible Erythromycin Resistant Oxacillin Resistant Rifampin Susceptible Tetracycline Susceptible Trimethoprim + Sulfamethoxazole Resistant Vancomycin Susceptible Susceptibility Morganella morganii ssp morganii MURRAY Method Not Specified Amoxicillin + Clavulanate Resistant Ampicillin Resistant Ampicillin + Sulbactam Resistant Cefazolin (Non Urine) Resistant Cefepime Susceptible Cefotaxime Susceptible Ceftazidime Susceptible Cefuroxime axetil Resistant Ciprofloxacin Resistant Gentamicin Susceptible Levofloxacin Resistant Piperacillin + Tazobactam Susceptible Tetracycline Susceptible Trimethoprim + Sulfamethoxazole Resistant Susceptibility Proteus mirabilis ESBL MURRAY Ciprofloxacin Resistant Ertapenem Susceptible Levofloxacin Resistant Meropenem Susceptible Tetracycline Resistant Trimethoprim + Sulfamethoxazole Resistant Susceptibility Comments Morganella morganii ssp morganii Cefotaxime susceptibility can be used as a surrogate for ceftriaxone susceptibility Proteus mirabilis ESBL With the exception of urinary-sourced infections, aminoglycosides should not be used as monotherapy. Blood Culture ID, PCR - Blood, Hand, Right [[id number]] (Abnormal) Collected: 06/25/252029 Lab Status: Final result Specimen: Blood from Hand, Right Updated: 06/26/252101 BCID, PCR Enterococcus faecium. Zee/B (vancomycin resistance gene) not detected. Identification by BCID2 PCR. BOTTLE TYPE Anaerobic Bottle Narrative: Infectious disease consultation is highly recommended to rule out distant foci of infection. MRSA Screen, PCR (Inpatient) - Swab, Nares [[id number]] (Abnormal) Collected: 06/26/2545 Lab Status: Final result Specimen: Swab from Nares Updated: 06/26/25 0850 MRSA PCR Positive Narrative: The negative predictive value of this diagnostic test is high and should only be used to consider de-escalating anti-MRSA therapy. A positive result may indicate colonization with MRSA and must be correlated clinically. Gastrointestinal Panel, PCR - Stool, Per Rectum [[id number]] (Abnormal) Collected: 06/26/2545 Lab Status: Final result Specimen: Stool from Per Rectum Updated: 06/26/25 0850 Campylobacter Not Detected Plesiomonas shigelloides Not Detected Salmonella Not Detected Vibrio Not Detected Vibrio cholerae Not Detected Yersinia enterocolitica Not Detected Enteroaggregative E. coli (EAEC) Not Detected Enteropathogenic E. coli (EPEC) Not Detected Enterotoxigenic E. coli (ETEC) lt/st Not Detected Shiga-like toxin-producing E. coli (STEC) stx1/stx2 Not Detected Shigella/Enteroinvasive E. coli (EIEC) Not Detected Cryptosporidium Not Detected Cyclospora cayetanensis Not Detected Entamoeba histolytica Not Detected Giardia lamblia Not Detected Adenovirus F40/41 Not Detected Astrovirus Not Detected Norovirus GI/GII Detected Comment: If a positive Norovirus result is inconsistent with clinical presentation, the positive Norovirus result should be confirmed using another method. Rotavirus A Not Detected Sapovirus (I, II, IV or V) Not Detected Clostridioides difficile Toxin - Stool, Per Rectum [[id number]] (Abnormal) Collected: 06/26/2545 Lab Status: Final result Specimen: Stool from Per Rectum Updated: 06/26/25754 Narrative: The following orders were created for panel order Clostridioides difficile Toxin - Stool, Per Rectum. Procedure Abnormality Status --------- ------ Clostridioides difficile...[[id number]] Abnormal Final result Please view results for these tests on the individual orders. Clostridioides difficile Toxin, PCR - Stool, Per Rectum [[id number]] (Abnormal) Collected: 06/26/2545 Lab Status: Final result Specimen: Stool from Per Rectum Updated: 06/26/25754 Toxigenic C. difficile by PCR Detected Narrative: DNA from a toxigenic strain of C.difficile has been detected. Microbiology Results Abnormal Procedure Component Value - Date/Time Urine Culture - Urine, Indwelling Urethral Catheter [[id number]] (Abnormal) (Susceptibility) Collected: 06/25/252000 Lab Status: Final result Specimen: Urine from Indwelling Urethral Catheter Updated: 06/30/25 1001 Urine Culture >100,000 CFU/mL Proteus mirabilis Narrative: Colonization of the urinary tract without infection is common. Treatment is discouraged unless the patient is symptomatic, , or undergoing an invasive urologic procedure. Susceptibility Proteus mirabilis MURRAY Amoxicillin + Clavulanate Susceptible Ampicillin Resistant Ampicillin + Sulbactam Intermediate Cefazolin (Urine) Resistant Cefepime Resistant Ceftazidime Susceptible Ceftriaxone Resistant Cefuroxime axetil Resistant Ciprofloxacin Resistant Gentamicin Susceptible Levofloxacin Resistant Nitrofurantoin Resistant Piperacillin + Tazobactam Susceptible Trimethoprim + Sulfamethoxazole Resistant Blood Culture - Blood, Hand, Right [[id number]] (Abnormal) (Susceptibility) Collected: 06/25/25 2030 Lab Status: Edited Result - FINAL Specimen: Blood from Hand, Right Updated: 06/29/25 07 Blood Culture Enterococcus faecium Comment: Infectious disease consultation is highly recommended. Isolated from Anaerobic Bottle Gram Stain Anaerobic Bottle Gram positive cocci in chains Narrative: Less than seven (7) mL's of blood was collected. Insufficient quantity may yield false negative results. requested linezolid & daptomycin 06/28/25 Susceptibility Enterococcus faecium MURRAY Method Not Specified Ampicillin Susceptible Daptomycin Susceptible dose dependent Gentamicin High Level Synergy Susceptible Linezolid Susceptible (C) [1] Vancomycin Susceptible [1] Appended report. These results have been appended to a previously final verified report. Wound Culture - Swab, Foot, Left [[id number]] (Abnormal) (Susceptibility) Collected: 06/25/251817 Lab Status: Final result Specimen: Swab from Foot, Left Updated: 06/29/25 0645 Wound Culture Heavy growth (4+) Staphylococcus aureus, MRSA Comment: Methicillin resistant Staphylococcus aureus, Patient may be an isolation risk. Moderate growth (3+) Morganella morganii ssp morganii Moderate growth (3+) Proteus mirabilis ESBL Comment: Consider infectious disease consult. Susceptibility results may not correlate to clinical outcomes. Gram Stain Few (2+) WBCs seen Few (2+) Gram positive cocci in pairs, chains and clusters Few (2+) Gram negative bacilli Susceptibility Staphylococcus aureus, MRSA MURRAY Clindamycin Susceptible Erythromycin Resistant Oxacillin Resistant Rifampin Susceptible Tetracycline Susceptible Trimethoprim + Sulfamethoxazole Resistant Vancomycin Susceptible Susceptibility Morganella morganii ssp morganii MURRAY Method Not Specified Amoxicillin + Clavulanate Resistant Ampicillin Resistant Ampicillin + Sulbactam Resistant Cefazolin (Non Urine) Resistant Cefepime Susceptible Cefotaxime Susceptible Ceftazidime Susceptible Cefuroxime axetil Resistant Ciprofloxacin Resistant Gentamicin Susceptible Levofloxacin Resistant Piperacillin + Tazobactam Susceptible Tetracycline Susceptible Trimethoprim + Sulfamethoxazole Resistant Susceptibility Proteus mirabilis ESBL MURRAY Ciprofloxacin Resistant Ertapenem Susceptible Levofloxacin Resistant Meropenem Susceptible Tetracycline Resistant Trimethoprim + Sulfamethoxazole Resistant Susceptibility Comments Morganella morganii ssp morganii Cefotaxime susceptibility can be used as a surrogate for ceftriaxone susceptibility Proteus mirabilis ESBL With the exception of urinary-sourced infections, aminoglycosides should not be used as monotherapy. Blood Culture ID, PCR - Blood, Hand, Right [[id number]] (Abnormal) Collected: 06/25/252029 Lab Status: Final result Specimen: Blood from Hand, Right Updated: 06/26/252101 BCID, PCR Enterococcus faecium. Zee/B (vancomycin resistance gene) not detected. Identification by BCID2 PCR. BOTTLE TYPE Anaerobic Bottle Narrative: Infectious disease consultation is highly recommended to rule out distant foci of infection. MRSA Screen, PCR (Inpatient) - Swab, Nares [[id number]] (Abnormal) Collected: 06/26/2545 Lab Status: Final result Specimen: Swab from Nares Updated: 06/26/25 0850 MRSA PCR Positive Narrative: The negative predictive value of this diagnostic test is high and should only be used to consider de-escalating anti-MRSA therapy. A positive result may indicate colonization with MRSA and must be correlated clinically. Gastrointestinal Panel, PCR - Stool, Per Rectum [[id number]] (Abnormal) Collected: 06/26/2545 Lab Status: Final result Specimen: Stool from Per Rectum Updated: 06/26/25 0850 Campylobacter Not Detected Plesiomonas shigelloides Not Detected Salmonella Not Detected Vibrio Not Detected Vibrio cholerae Not Detected Yersinia enterocolitica Not Detected Enteroaggregative E. coli (EAEC) Not Detected Enteropathogenic E. coli (EPEC) Not Detected Enterotoxigenic E. coli (ETEC) lt/st Not Detected Shiga-like toxin-producing E. coli (STEC) stx1/stx2 Not Detected Shigella/Enteroinvasive E. coli (EIEC) Not Detected Cryptosporidium Not Detected Cyclospora cayetanensis Not Detected Entamoeba histolytica Not Detected Giardia lamblia Not Detected Adenovirus F40/41 Not Detected Astrovirus Not Detected Norovirus GI/GII Detected Comment: If a positive Norovirus result is inconsistent with clinical presentation, the positive Norovirus result should be confirmed using another method. Rotavirus A Not Detected Sapovirus (I, II, IV or V) Not Detected Clostridioides difficile Toxin - Stool, Per Rectum [[id number]] (Abnormal) Collected: 06/26/2545 Lab Status: Final result Specimen: Stool from Per Rectum Updated: 06/26/25 0755 Narrative: The following orders were created for panel order Clostridioides difficile Toxin - Stool, Per Rectum. Procedure Abnormality Status --------- ------ Clostridioides difficile...[[id number]] Abnormal Final result Please view results for these tests on the individual orders. Clostridioides difficile Toxin, PCR - Stool, Per Rectum [[id number]] (Abnormal) Collected: 06/26/25 0046 Lab Status: Final result Specimen: Stool from Per Rectum Updated: 06/26/25 0755 Toxigenic C. difficile by PCR Detected Narrative: DNA from a toxigenic strain of C.difficile has been detected. Microbiology Results Abnormal Procedure Component Value - Date/Time Urine Culture - Urine, Indwelling Urethral Catheter [[id number]] (Abnormal) (Susceptibility) Collected: 06/25/252000 Lab Status: Final result Specimen: Urine from Indwelling Urethral Catheter Updated: 06/30/25 1001 Urine Culture >100,000 CFU/mL Proteus mirabilis Narrative: Colonization of the urinary tract without infection is common. Treatment is discouraged unless the patient is symptomatic, , or undergoing an invasive urologic procedure. Susceptibility Proteus mirabilis MURRAY Amoxicillin + Clavulanate Susceptible Ampicillin Resistant Ampicillin + Sulbactam Intermediate Cefazolin (Urine) Resistant Cefepime Resistant Ceftazidime Susceptible Ceftriaxone Resistant Cefuroxime axetil Resistant Ciprofloxacin Resistant Gentamicin Susceptible Levofloxacin Resistant Nitrofurantoin Resistant Piperacillin + Tazobactam Susceptible Trimethoprim + Sulfamethoxazole Resistant Blood Culture - Blood, Hand, Right [[id number]] (Abnormal) (Susceptibility) Collected: 06/25/252029 Lab Status: Edited Result - FINAL Specimen: Blood from Hand, Right Updated: 06/29/25 0713 Blood Culture Enterococcus faecium Comment: Infectious disease consultation is highly recommended. Isolated from Anaerobic Bottle Gram Stain Anaerobic Bottle Gram positive cocci in chains Narrative: Less than seven (7) mL's of blood was collected. Insufficient quantity may yield false negative results. requested linezolid & daptomycin 06/28/25 Susceptibility Enterococcus faecium MURRAY Method Not Specified Ampicillin Susceptible Daptomycin Susceptible dose dependent Gentamicin High Level Synergy Susceptible Linezolid Susceptible (C) [1] Vancomycin Susceptible [1] Appended report. These results have been appended to a previously final verified report. Wound Culture - Swab, Foot, Left [[id number]] (Abnormal) (Susceptibility) Collected: 06/25/25 1818 Lab Status: Final result Specimen: Swab from Foot, Left Updated: 06/29/25 0645 Wound Culture Heavy growth (4+) Staphylococcus aureus, MRSA Comment: Methicillin resistant Staphylococcus aureus, Patient may be an isolation risk. Moderate growth (3+) Morganella morganii ssp morganii Moderate growth (3+) Proteus mirabilis ESBL Comment: Consider infectious disease consult. Susceptibility results may not correlate to clinical outcomes. Gram Stain Few (2+) WBCs seen Few (2+) Gram positive cocci in pairs, chains and clusters Few (2+) Gram negative bacilli Susceptibility Staphylococcus aureus, MRSA MURRAY Clindamycin Susceptible Erythromycin Resistant Oxacillin Resistant Rifampin Susceptible Tetracycline Susceptible Trimethoprim + Sulfamethoxazole Resistant Vancomycin Susceptible Susceptibility Morganella morganii ssp morganii MURRAY Method Not Specified Amoxicillin + Clavulanate Resistant Ampicillin Resistant Ampicillin + Sulbactam Resistant Cefazolin (Non Urine) Resistant Cefepime Susceptible Cefotaxime Susceptible Ceftazidime Susceptible Cefuroxime axetil Resistant Ciprofloxacin Resistant Gentamicin Susceptible Levofloxacin Resistant Piperacillin + Tazobactam Susceptible Tetracycline Susceptible Trimethoprim + Sulfamethoxazole Resistant Susceptibility Proteus mirabilis ESBL MURRAY Ciprofloxacin Resistant Ertapenem Susceptible Levofloxacin Resistant Meropenem Susceptible Tetracycline Resistant Trimethoprim + Sulfamethoxazole Resistant Susceptibility Comments Morganella morganii ssp morganii Cefotaxime susceptibility can be used as a surrogate for ceftriaxone susceptibility Proteus mirabilis ESBL With the exception of urinary-sourced infections, aminoglycosides should not be used as monotherapy. Blood Culture ID, PCR - Blood, Hand, Right [[id number]] (Abnormal) Collected: 06/25/25 2030 Lab Status: Final result Specimen: Blood from Hand, Right Updated: 06/26/252101 BCID, PCR Enterococcus faecium. Zee/B (vancomycin resistance gene) not detected. Identification by BCID2 PCR. BOTTLE TYPE Anaerobic Bottle Narrative: Infectious disease consultation is highly recommended to rule out distant foci of infection. MRSA Screen, PCR (Inpatient) - Swab, Nares [[id number]] (Abnormal) Collected: 06/26/25 0046 Lab Status: Final result Specimen: Swab from Nares Updated: 06/26/25 0850 MRSA PCR Positive Narrative: The negative predictive value of this diagnostic test is high and should only be used to consider de-escalating anti-MRSA therapy. A positive result may indicate colonization with MRSA and must be correlated clinically. Gastrointestinal Panel, PCR - Stool, Per Rectum [[id number]] (Abnormal) Collected: 06/26/2545 Lab Status: Final result Specimen: Stool from Per Rectum Updated: 06/26/25 0850 Campylobacter Not Detected Plesiomonas shigelloides Not Detected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 Minutes Intravenous Once 06/26/2559906/26/2559906/25/252111 DAPTOmycin (CUBICIN) 550 mg in sodium chloride 0.9 % 50 mL IVPB Ordering Provider: Ally Jeffers V DIABETES NURSE 6 mg/kg ?? 94.6 kg (Adjusted) 100 mL/hr over 30 Minutes Intravenous Once 06/25/25212706/25/25230606/25/252111 meropenem (MERREM) 1,000 mg in sodium chloride 0.9 % 100 mL MBP Ordering Provider: Ally Jeffers V DIABETES NURSE 1,000 mg over 30 Minutes Intravenous Once 06/25/25212706/25/252236 Review of Systems 07/05/25 Constitutional-- No Fever, chills or sweats. Appetite good, and no malaise. No fatigue. Heent-- No new vision, hearing or throat complaints. No epistaxis or oral sores. Denies odynophagiaor dysphagia. No flashers, floaters or eye pain. No odynophagia or dysphagia. No headache, photophobia or neck stiffness. CV-- No chest pain, palpitation or syncope Resp-- No SOB/cough/Hemoptysis GI- No hematochezia, melena, or hematemesis. Denies jaundice or chronic liver disease. -- chronic De Los Santos catheter, denies flank pain Lymph- no swollen lymph nodes in neck/axilla or groin. Heme- No active bruising or bleeding; no Hx of DVT or PE. MS-- no swelling or pain in the bones or joints of arms/legs. No new back pain. Neuro-- No acute focal weakness or numbness in the arms or legs. Chronically debilitated Full 12 point review of systems reviewed and negative otherwise for acute complaints, except for above Physical Exam: Vital Signs BP 135/55 (BP Location: Left arm, Patient Position: Lying) Pulse 69 Temp 97.6 ??F (36.4 ??C) (Oral) Resp 16 Ht 182.9 cm (72 ) Wt 117 kg (258 lb 13.1 oz) SpO2 96% BMI 35.10 kg/m?? GENERAL: awake/interactive HEENT: Normocephalic, atraumatic. No conjunctival injection. No [...] or HSM. EXT: see below : With De Los Santos catheter. MSK: FROM without joint effusions noted arms/legs. SKIN: Warm and dry without cutaneous eruptions on Inspection/palpation. NEURO: awake Left foot amputation noted surgical site covered. Vague erythema from mid burrell to foot with some light scale but no discrete mass bulge or fluctuance. No crepitus or bulla Right side amputation no obvious open wound or new redness/induration Laboratory Data Results from last 7 days Lab Units 07/04/25 0347 07/02/25 0359 06/30/25 0429 WBC 10*3/mm3 8.21 7.10 5.48 HEMOGLOBIN g/dL 9.3* 9.8* 9.2* HEMATOCRIT % 31.1* 32.8* 31.6* PLATELETS 10*3/mm3 264 296 259 Results from last 7 days Lab Units 07/05/25 0434 SODIUM mmol/L 134* POTASSIUM mmol/L 5.1 CHLORIDE mmol/L 102 CO2 mmol/L 22.9 BUN mg/dL 14.0 CREATININE mg/dL 0.83 GLUCOSE mg/dL 142* CALCIUM mg/dL 8.6 Estimated Creatinine Clearance: 107.8 mL/min (by C-G formula based on SCr of 0.83 mg/dL). Microbiology: Radiology: Imaging Results (Last 72 Hours) Procedure Component Value Units Date/Time CT Head Without Contrast [[id number]] Collected: 07/03/252109 Updated: 07/03/252113 Narrative: CT HEAD WO CONTRAST Date of Exam: 07/03/2025 8:35 PM EDT Indication: altered mental status. Comparison: None available. Technique: Axial CT images were obtained of the head without contrast administration. Automated exposure control and iterative construction methods were used. FINDINGS: Gutierrez-white differentiation is maintained and there is no evidence of intracranial hemorrhage, mass or mass effect. Age-related changes of the brain are present including volume loss and typical periventricular sequela of chronic small vessel ischemia. There is otherwise no evidence of intracranial hemorrhage, mass or mass effect. The ventricles are normal in size and configuration accounting for surrounding volume loss. The orbits are normal and the paranasal sinuses are grossly clear. Impression: Age-related changes of the brain as above, otherwise without evidence of acute intracranial abnormality. Electronically Signed: Ravi Swartz MD 07/03/2025 9:11 PM EDT Workstation ID: [id number] [facility] Procedure [[id number]] Resulted: 07/03/251543 Updated: 07/03/251543 Impression: --acute left lower leg/foot cellulitis and wound infection, prior culture July 2024 with ESBL Klebsiella pneumoniae and pseudomonas aeruginosa, pseudomonas was sensitive to Merrem per microbiology lab at [facility]. Cx at [facility] as below; He has had multiple surgeries and multiple p ractitioners recommend higher level amputation which he has refused. On prior admissions, he has refused outpatient IV antibiotics and he has refused placement for longer durations of IV antibiotics.This refusal of care has placed him at increased risk for poor outcome. Earlier in 2024 he was discharged to the care of Dr. Oneal, his outpatient ID doctor and Dr Faust his automobile travel club counselor for furthercare/workup ; readmission May 2025 and June 2025 with acute worsening in redness/drainage to left lower extremity. High risk for further serious morbidity and other serious sequela includingpersistent/recurrent or nonhealing wounds, persistent/progressive or recurrent infection and risk for further functional/limb loss, higher-level amputation and other dire consequences including sepsis/mortalityetc. he remains opposed to amputation; he voices understanding his poor prognosis overallincluding risks for dire consequences; past Cx with MRSA/PSA/ESBL at prior admissions; culture June 02, 2025 with Proteus/MRSA/PSA; Cx June 2025 below; further imaging no definitive osteomyelitis but also unable to exclude per radiology at distal first/second MT; surgery with I&D 07/03 but no further bone debridement/amputation --E Faecium bacteremia ; NOT vanco resistant; ?foot source -v- other --Acute hematuria/UTI with chronic indwelling De Los Santos catheter. Proteus in culture so far; nursing reports De Los Santos catheter has been changed since admission; urology evaluation for further consideration of cystoscopy versus SP catheter or other; urine microscopic with yeast and potential for yeast colon ization/contaminant --Acute diarrhea, Norovirus + and C. Difficile PCR +, although toxin antigen negative. He has risk for active disease and does have symptomatology and requires antibiotics for other processes, and therefore oral vancomycin added although unable to definitively confirm active disease with toxin antigen negative ( although risk for false negative); supportive care ongoing --MRSA surveillance + --Peripheral arterial disease by past evaluation of vascular team in addition to history DVT. 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; postop after 07/03 surgery with decreased LOC, seen bymedicine and adjustments per them in medications; further neuro workup per medicine / neuro team; awake/interactive as of my 07/05 visit --Hx QTc > 500 ms on prior EKG PLAN: --IV vancomycin//merrem, oral vancomycin; likely to need IV abx in light of bacteremia/abnormal MRI wound culture June 02, 2025 with Proteus /MRSA, PSA urine culture June 02, 2025 E Coli/ESBL Proteus urine culture 06/25 proteus blood culture 06/25 E Faecium vanco/amp sensitive; dapto sens but dose dependent wound culture 06/25 (surface) with MRSA and ESBL proteus and morganella -Dr Marcano with plans for further debridement which should help give additional information regarding extent of disease at foot --Check/review labs cultures and scans --Partial history [...] caregivers regarding antimicrobial stewardship and antibiotic resistance. Duglas Andres MD 07/05/2025 [1] Allergies Allergen Reactions Keppra [Levetiracetam] Other (See Comments) Acute psychosis Bupropion Unknown (See Comments) Codeine Nausea Only Hydrocodone Unknown (See Comments) Ketorolac Tromethamine Unknown (See Comments) [2] Current Facility-Administered Medications Medication Dose Route Frequency Provider Last Rate Last Admin acetaminophen (TYLENOL) tablet 650 mg 650 mg Oral Q4H PRN Amanda Bermudez MD 650 mg at 06/29/25 0343 Or acetaminophen (TYLENOL) 160 MG/5ML oral solution 650 mg 650 mg Oral Q4H PRN Amanda Bermudez MD Or acetaminophen (TYLENOL) suppository 650 mg 650 mg Rectal Q4H PRN Amanda Bermudez MD aluminum-magnesium hydroxide-simethicone (MAALOX MAX) 400-400-40 MG/5ML suspension 15 mL 15 mL [id number] PRN Amanda Bermudez MD [Held by provider] apixaban (ELIQUIS) tablet 5 mg 5 mg Oral BID Amanda Bermudez MD ascorbic acid (VITAMIN C) tablet 500 mg 500 mg Oral Daily Amanda Bermudez MD 500 mg at 07/01/25 0830 baclofen (LIORESAL) tablet 10 mg 10 mg Oral Q12H Amanda Bermudez MD 10 mg at 07/01/25 2144 sennosides-docusate (PERICOLACE) 8.6-50 MG per tablet 2 tablet 2 tablet Oral BID PRN Amanda Bermudez MD And polyethylene glycol (MIRALAX) packet 17 g 17 g Oral Daily PRN Amanda Bermudez MD And bisacodyl (DULCOLAX) EC tablet 5 mg 5 mg Oral Daily PRN Amanda Bermudez MD And bisacodyl (DULCOLAX) suppository 10 mg 10 mg Rectal Daily PRN Amanda Bermudez MD Calcium Replacement - Follow Nurse / BPA Driven Protocol Not Applicable PRN Amanda Bermudez MD carvedilol (COREG) tablet 3.125 mg 3.125 mg Oral BID With Meals Amanda Bermudez MD 3.125 mg at 07/01/25 1712 clopidogrel (PLAVIX) tablet 75 mg 75 mg Oral Daily Amanda Bermudez MD 75 mg at 07/01/25 0830 famotidine (PEPCID) tablet 20 mg 20 mg Oral BID AC Arnoldo Crews PharmD 20 mg at 07/02/25 0649 finasteride (PROSCAR) tablet 5 mg 5 mg Oral Daily Amanda Bermudez MD 5 mg at 07/01/25 0830 folic acid (FOLVITE) tablet 1 mg 1 mg Oral Daily Amanda Bermudez MD 1 mg at 07/01/25 0830 gabapentin (NEURONTIN) capsule 300 mg 300 mg Oral Q8H Milena Jo APRN 300 mg at 07/02/25 0649 heparin (porcine) 5000 UNIT/ML injection 5,000 Units 5,000 Units Subcutaneous Q8H Lupe Albert APRN 5,000 Units at 07/02/25 0649 influenza vac split high-dose (FLUZONE HIGH DOSE) injection 0.5 mL 0.5 mL Intramuscular During Hospitalization Kris Boston DO insulin glargine (LANTUS, SEMGLEE) injection 56 Units 56 Units Subcutaneous Nightly Amanda Bermudez MD 56 Units at 07/01/25 2145 ipratropium-albuterol (DUO-NEB) nebulizer solution 3 mL 3 mL Nebulization Q6H PRN Amanda Bermudez MD lamoTRIgine (LaMICtal) tablet 100 mg 100 mg Oral Daily Amanda Bermudez MD 100 mg at 07/01/25 0830 lamoTRIgine (LaMICtal) tablet 250 mg 250 mg Oral Nightly Amanda Bermudez MD 250 mg at 07/01/25 2144 Magnesium Cardiology Dose Replacement - Follow Nurse / BPA Driven Protocol Not Applicable PRN Amanda Bermudez MD meropenem (MERREM) 500 mg in sodium chloride 0.9 % 100 mL MBP 500 mg Intravenous Q6H Duglas Andres MD 500 mg at 07/02/25 0359 methenamine (HIPREX) tablet 1 g 1 g Oral BID With Meals Amanda Bermudez MD 1 g at 07/01/25 1713 multivitamin with minerals 1 tablet 1 tablet Oral Daily Amanda Bermudez MD 1 tablet at 07/01/25 0830 naloxone (NARCAN) injection 0.4 mg 0.4 mg Intravenous Q5 Min PRN Amanda Bermudez MD nitroglycerin (NITROSTAT) SL tablet 0.4 mg 0.4 mg Sublingual Q5 Min PRN Amanda Bermudez MD ondansetron (ZOFRAN) injection 4 mg 4 mg Intravenous Q6H PRN Amanda Bermudez MD 4 mg at 06/29/25 1646 oxyCODONE-acetaminophen (PERCOCET) 10-325 MG per tablet 1 tablet 1 tablet Oral Q6H PRN Kris Boston DO 1 tablet at 07/02/25 0125 Pharmacy to dose vancomycin Not Applicable Continuous PRN Duglas Andres MD Phosphorus Replacement - Follow Nurse / BPA Driven Protocol Not Applicable PRN Amanda Bermudez MD Potassium Replacement - Follow Nurse / BPA Driven Protocol Not Applicable PRN Amanda Bermudez MD sacubitril-valsartan (ENTRESTO) 24-26 MG tablet 1 tablet 1 tablet Oral BID Amanda Bermudez MD 1 tablet at 07/01/25 2144 sodium chloride 0.9 % flush 10 mL 10 mL Intravenous PRN Ally Jeffers V, DIABETES NURSE sodium chloride 0.9 % flush 10 mL 10 mL Intravenous Q12H Amanda Bermudez MD 10 mL at 07/01/25 0832 sodium chloride 0.9 % flush 10 mL 10 mL Intravenous PRN Amanda Bermudez MD sodium chloride 0.9 % flush 10 mL 10 mL Intravenous Q12H Duglas Andres MD 10 mL at 07/01/25 2145 sodium chloride 0.9 % flush 10 mL 10 mL Intravenous PRN Duglas Andres MD sodium chloride 0.9 % flush 20 mL 20 mL Intravenous PRN Duglas Andres MD sodium chloride 0.9 % infusion 40 mL 40 mL Intravenous PRN Duglas Andres MD vancomycin (VANCOCIN) 1,000 mg in sodium chloride 0.9 % 250 mL IVPB-VTB 1,000 mg Intravenous Q12H Siobhan Osmany H, [facility] 250 mL/hr at 07/01/252142 1,000 mg at 07/01/252142 vancomycin (VANCOCIN) capsule 125 mg 125 mg Oral 4x Daily Duglas Andres MD 125 mg at Followed by [START ON 07/10/2025] vancomycin (VANCOCIN) capsule 125 mg 125 mg Oral TID Duglas Andres MD Followed by [START ON 07/17/2025] vancomycin (VANCOCIN) capsule 125 mg 125 mg Oral BID Duglas Andres MD Followed by [START ON 07/25/2025] vancomycin (VANCOCIN) capsule 125 mg 125 mg Oral Daily Duglas Andres MD Followed by [START ON 08/01/2025] vancomycin (VANCOCIN) capsule 125 mg 125 mg Oral Weekly Duglas Andres MD * Kristi Quezada, RD - 07/04/2025 12:45 PM EDT Patient Name: Trung Pool Date of : 1955 Admission date: 06/25/2025 Reason for Encounter: Follow-up/Progress Note [facility] Clinical Nutrition Assessment Subjective Subjective Information 07/04 Spoke with pt at bedside. Pt stated that his appetite is okay , and he has been drinking his BoostONS. Pt did not have any nutrition preferences or concerns at this time. 06/26 Pt resting in bed at time of visit, finished breakfast tray (RD observed pt ate ~50%). Pt states hehas not had an appetite x last ~1 month-notes recent hospital admit. Pt states he is eating about half of usual intake and in the past 9 days has had ongoing diarrhea which has caused him to eat evenless. Pt states he has had 14lb wt loss from UBW of 265lbs over the past month as well. Pt states he usually drinks Boost at home, is willing to drink while here. Pt notes food preferences. Objective H&P and Current Problems H&P Past [...] LEFT; Surgeon: Cecil Buenrostro Jr., MD; Location: [facility]; Service: Orthopedics; Laterality: Left; ANTERIOR CERVICAL DISCECTOMY W/ FUSION Bilateral 07/17/2020 Procedure: Cervical discectomy anterior with fusion C3-4; Surgeon: Tyree Tan MD; Location:[facility]; Service: Neurosurgery; Laterality: Bilateral; AORTOGRAM N/A 01/26/2024 Procedure: ABDOMINAL AORTIC ANGIOGRAM, LLE ANGIOGRAM, LEFT ANTERIOR TIBIAL ATHERECTOMY, LEFT ANTERIOR TIBIAL ANGIOPLASTY; Surgeon: Archie Olvera MD; Location: [facility]; Service: Vascular; Laterality: N/A; CONTRAST: 50 ML, FT: 2 MIN 54 SEC, DOSE: 66 MGY. AORTOGRAM Left 07/03/2025 Procedure: ARTERIOGRAM LOWER EXTREMITY; Surgeon: Vaughn Hollingsworth DO; Location: [facility]; Service: Vascular; Laterality: Left; FT-6MINS 24SEC 140 MGY CONTRAST -15ML BACK SURGERY FOR DISC HERNIATION CARDIAC CATHETERIZATION CARDIAC CATHETERIZATION N/A 09/04/2024 Procedure: Peripheral angiography - Left lower extremity angio - Right femoral access; Surgeon: Jared Marcano MD; Location: [facility]; Service: Peripheral Vascular; Laterality: N/A; CORONARY ANGIOPLASTY WITH STENT PLACEMENT stent x 1 INCISION AND DRAINAGE FOOT Left 06/17/2023 Procedure: LEFT FOOT DEBRIDEMENT WOUND VACUUM ASSISTED CLOSURE; Surgeon: Cecil Buenrostro Jr., MD;Location: [facility]; Service: Orthopedics; Laterality: Left; INCISION AND DRAINAGE LEG Left 07/25/2023 Procedure: INCISION AND DRAINAGE HEEL, WOUND VAC; Surgeon: Cecil Buenrostro Jr., MD; Location: [facility]; Service: Orthopedics; Laterality: Left; INCISION AND DRAINAGE LEG Left 07/03/2025 Procedure: DEBRIDEMENT WOUND, PLACEMENT OF WOUND VAC; Surgeon: Vaughn Hollingsworth DO; Location: [facility]; Service: Vascular; Laterality: Left; INTERVENTIONAL RADIOLOGY PROCEDURE N/A 05/02/2019 Procedure: IVC FILTER PLACEMENT; Surgeon: Pedro Zapien MD; Location: [facility]; Service: Interventional Radiology INTERVENTIONAL RADIOLOGY PROCEDURE Left 09/07/2024 Procedure: LEFT peroneal arteriovenous fistula embolization - Right femoral access; Surgeon: Jared Marcano MD; Location: [facility]; Service: Cardiovascular; Laterality: Left; Please coordinate with Gautam Patel ([facility]) [phone] who will bring coils LUMBAR DISCECTOMY N/A 05/03/2019 Procedure: THORACIC LAMINECTOMY T11-12; Surgeon: Tyree Tan MD; Location: [facility]; Service: Neurosurgery Current Problems Admission Diagnosis: Cellulitis [L03.90] Problem List: Gastroenteritis due to norovirus Primary hypertension Seizure disorder Coronary artery disease involving [place] coronary artery of [place] heart without angina pectoris PAD (peripheral artery disease) Wound infection Type 2 diabetes mellitus, with long-term current use of insulin Cellulitis Acute UTI (urinary tract infection) Diarrhea of presumed infectious origin Acute on chronic blood loss anemia BPH without obstruction/lower urinary tract symptoms GERD without esophagitis Bilateral inguinal hernia Applicable Nutrition Hx Historical R BKA Anthropometrics Height: 182.9 cm (72 ) Weight: (unable to do at this time, reportd to RN & dayshift) (07/04/25 0600) Weight Method: Stated BMI (Calculated): 34 Trending Weight Changes 06/26/25: Unknown/Unable to Determine, pt reporting 14lb wt loss x 1 month however previously only stated wts 17lb/6.4% x ? 10 months Weight History Wt Readings from Last 10 Encounters: 07/03/25 1135 114 kg (251 lb) 07/02/25 0500 118 kg (259 lb 11.2 oz) 06/30/25 0600 117 kg (257 lb 0.9 oz) 06/29/25 0547 117 kg (257 lb 4.4 oz) 06/28/25 0520 116 kg (255 lb 8 oz) 06/26/25 0054 114 kg (251 lb 5.2 oz) 06/25/25 1814 120 kg (265 lb) 06/02/25 0932 120 kg (265 lb) 09/01/24 1128 122 kg (268 lb) 08/31/24 1756 122 kg (268 lb 14.4 oz) 08/31/24 1244 113 kg (250 lb) 01/15/24 1509 135 kg (297 lb) 01/15/24 1508 135 kg (297 lb 9.9 oz) 09/01/23 0558 135 kg (296 lb 12.8 oz) 08/31/23 2208 129 kg (285 lb) 08/03/23 2000 130 kg (285 lb 15 oz) 07/23/23 0147 127 kg (279 lb 3.2 oz) 07/22/23 1945 120 kg (265 lb) 07/14/23 0529 (!) 175 kg (384 lb 12.8 oz) 07/12/23 1240 (!) 175 kg (385 lb 5.8 oz) 07/09/23 0500 (!) 177 kg (390 lb 3.4 oz) 07/08/23 1604 122 kg (268 lb) 07/08/23 1523 122 kg (268 lb 15.4 oz) 07/07/23 1329 122 kg (270 lb) 06/24/23 1228 126 kg (277 lb 6.4 oz) 06/16/23 0436 130 kg (287 lb 3.2 oz) 06/14/23 1707 128 kg (283 lb) 06/14/23 1706 128 kg (283 lb) 06/13/23 2333 129 kg (283 lb 11.2 oz) 06/13/23 1651 120 kg (265 lb) 06/21/22 1825 102 kg (224 lb 14.4 oz) 06/21/22 0922 99.8 kg (220 lb) Labs Results from last 7 days Lab Units 07/04/25 0615 07/04/25 0347 07/02/25 0359 07/01/25 0329 SODIUM mmol/L -- 135* 136 135* POTASSIUM mmol/L 5.9* 6.1* 5.1 4.7 GLUCOSE mg/dL -- 126* 124* 70 BUN mg/dL -- 14.1 16.9 13.7 CREATININE mg/dL -- 0.78 0.93 0.93 CALCIUM mg/dL -- 8.3* 8.6 8.7 Results from last 7 days Lab Units 07/04/25 0347 07/02/25 0359 06/30/25 0429 PLATELETS 10*3/mm3 264 296 259 HEMOGLOBIN g/dL 9.3* 9.8* 9.2* HEMATOCRIT % 31.1* 32.8* 31.6* Lab Results Component Value Date HGBA1C 7.82 (H) 06/26/2025 Medications Scheduled Medications [Held by provider] apixaban, 5 mg, Oral, BID vitamin C, 500 mg, Oral, Daily baclofen, 10 mg, Oral, Q12H carvedilol, 3.125 mg, Oral, BID With Meals clopidogrel, 75 mg, Oral, Daily famotidine, 20 mg, Oral, BID AC finasteride, 5 mg, Oral, Daily folic acid, 1 mg, Oral, Daily gabapentin, 300 mg, Oral, Q8H heparin (porcine), 5,000 Units, Subcutaneous, Q8H insulin glargine, 56 Units, Subcutaneous, Nightly lamoTRIgine, 100 mg, Oral, Daily lamoTRIgine, 250 mg, Oral, Nightly meropenem, 500 mg, Intravenous, Q6H methenamine, 1 g, Oral, BID With Meals multivitamin with minerals, 1 tablet, Oral, Daily sacubitril-valsartan, 1 tablet, Oral, BID sodium chloride, 10 mL, Intravenous, Q12H sodium chloride, 10 mL, Intravenous, Q12H vancomycin, 1,000 mg, Intravenous, Q12H vancomycin, 125 mg, Oral, 4x Daily Followed by [START ON 07/10/2025] vancomycin, 125 mg, Oral, TID Followed by [START ON 07/17/2025] vancomycin, 125 mg, Oral, BID Followed by [START ON 07/25/2025] vancomycin, 125 mg, Oral, Daily Followed by [START ON 08/01/2025] vancomycin, 125 mg, Oral, Weekly Infusions lactated ringers, 9 mL/hr Pharmacy to dose vancomycin, PRN Medications acetaminophen OR acetaminophen OR acetaminophen aluminum-magnesium hydroxide-simethicone senna-docusate sodium AND polyethylene glycol AND bisacodyl AND bisacodyl Calcium Replacement - Follow Nurse / BPA Driven Protocol influenza vaccine ipratropium-albuterol LORazepam Magnesium Cardiology Dose Replacement - Follow Nurse / BPA Driven Protocol [DISCONTINUED] Morphine AND naloxone nitroglycerin ondansetron oxyCODONE-acetaminophen Pharmacy to dose vancomycin Phosphorus Replacement - Follow Nurse / BPA Driven Protocol Potassium Replacement - Follow Nurse / BPA Driven Protocol Insert Peripheral IV AND sodium chloride sodium chloride sodium chloride sodium chloride sodium chloride Physical Findings Chewing/Swallowing No issues identified at this time Dentition Mouth/Teeth WDL: .WDL except, teeth Teeth Symptoms: tooth/teeth missing Pt reports dentures are ill-fitting though tolerating current textures Skin Wound Left posterior heel-Pressure Injury Stage: Unstageable (06/26/25 0301) WOC following Bowel function Last Bowel Movement: 07/03/25 (07/03/25 0830) Stool Consistency: liquid (07/03/25 0850) Edema N/a Intake & Output (last 3 days) 07/01 0701 07/02 0707/02 0701 07/03 0707/03 0701 07/04 0700 07/04 0701 07/05 0700 P[address]O. 1480 I.V. (mL/kg) 500 (4.4) IV Piggyback 300 350 Total Intake(mL/kg) 1480 (12.5) 800 (7) 350 (3.1) Urine (mL/kg/hr) 2800 (1) 2700 (1) 2350 (0.9) 1200 (1.8) Stool 0 Wound 20 Total Output 2800 2700 2350 1220 Net -1320 -2700 -1550 -870 Stool Unmeasured Occurrence 1 x 1 x Nutrition Focused Physical Exam 06/26/25: NFPE completed and not consistent with nutrition diagnosis of malnutrition at this time using AND/ASPEN criteria. 1 Current Nutrition Orders & Evaluation of Intake Oral Nutrition Food Allergies/Intolerances NKFA Current PO Diet Diet: Cardiac; Healthy Heart (2-3 Na+); Fluid Consistency: Thin (IDDSI 0) Oral Nutrition Supplement Boost Glucose Control BID Trending % PO Intake 06/26/25: 50% x [address] observation 07/04/25: 43% x 7 recorded meals 2 Assessment & Plan Nutrition Diagnosis and Goals Nutrition Diagnosis 1 Predicted Inadequate Energy Intake r/t diarrhea and recent hospital admit AEBpt report Nutrition Diagnosis 2 Unintended Weight Loss r/t lack of appetite, diarrhea AEB pt report 14lb wt loss x 1 month. Goal(s) Increase PO Intake , Accepts Oral Nutrition Supplement, and Skin Integrity to Improve Nutrition Intervention and Prescription Intervention Continue to monitor for plan of care and Continue with current interventions Diet Continue current diet Supplement Continue Boost GC (papito) BID Education Provided N/a 3 Monitoring/Evaluation Monitor/Evaluation Per Protocol, PO Intake, Oral Nutrition Supplement Intake, Weight, and Skin Status RD Follow-Up Encounter 7 days and prn Electronically signed by: Kristi Quezada RD 07/04/25 12:45 EDT Cosigned by Annie Huber MS,SAAD,LD at 07/04/2025 3:36 PM EDT Associated attestation - Annie Huber MS, RD,FARIHA - 07/04/2025 3:36 PM EDT I have reviewed this documentation and agree. * Lupe Albert, DIABETES NURSE - 07/04/2025 12:09 PM EDT Images from the original note were not included. VASCULAR SURGERY PROGRESS NOTE Subjective Resting in bed and reports having difficulty with pain control but not utilizing his options for pain control -- educated him on asking for his PRNs ordered. Objective Last Recorded Vitals Blood pressure 138/76, pulse 65, temperature 97.8 ??F (36.6 ??C), temperature source Axillary, resp. rate 12, height 182.9 cm (72 ), weight 114 kg (251 lb), SpO2 97%. Physical Exam Gen: Awake; elderly white male; resting in bed HEENT: [place] conjunctivae, MMM Lungs: Normal respiratory effort Ext: hx right BKA; left foot TMA w/ wound vac intact/functioning; motor intact; thickened flaky skin Skin: Exposed skin warm Neuro: Follows simple commands Psych: Apropriate mood, talkative Labs: Lab Results (last 24 hours) Procedure Component Value Units Date/Time POC Glucose Once [[id number]] (Normal) Collected: 07/04/25 1203 Specimen: Blood Updated: 07/04/25 1205 Glucose 86 mg/dL Comment: Serial Number: [id number] Vancomycin, Random [[id number]] (Normal) Collected: 07/04/25346 Specimen: Blood Updated: 07/04/2548 Vancomycin Random 28.30 mcg/mL Narrative: Therapeutic Ranges for Vancomycin Vancomycin Random 5.0-40.0 mcg/mL Vancomycin Trough 5.0-20.0 mcg/mL Vancomycin Peak 20.0-40.0 mcg/mL POC Glucose Once [[id number]] (Normal) Collected: 07/04/25731 Specimen: Blood Updated: 07/04/25733 Glucose 99 mg/dL Comment: Serial Number: [id number] Potassium [[id number]] (Abnormal) Collected: 07/04/25614 Specimen: Blood Updated: 07/04/25722 Potassium 5.9 mmol/L Basic Metabolic Panel [[id number]] (Abnormal) Collected: 07/04/25346 Specimen: Blood Updated: 07/04/25442 Glucose 126 mg/dL BUN 14.1 mg/dL Creatinine 0.78 mg/dL Sodium 135 mmol/L Potassium 6.1 mmol/L Chloride 106 mmol/L CO2 21.3 mmol/L Calcium 8.3 mg/dL BUN/Creatinine Ratio 18.1 Anion Gap 7.7 mmol/L eGFR 95.3 mL/min/1.73 Narrative: GFR Categories in Chronic Kidney Disease (CKD) GFR Category GFR (mL/min/1.73) Interpretation G1 90 or greater Normal or high (1) G2 60-89 Mild decrease (1) G3a 45-59 Mild to moderate decrease G3b 30-44 Moderate to severe decrease G4 15-29 Severe decrease G5 14 or less Kidney failure (1)In the absence of evidence of kidney disease, neither GFR category G1 or G2 fulfill the criteriafor CKD. eGFR calculation 2020 CKD-EPI creatinine equation, which does not include race as a factor CBC & Differential [[id number]] (Abnormal) Collected: 07/04/25346 Specimen: Blood Updated: 07/04/25414 Narrative: The following orders were created for panel order CBC & Differential. Procedure Abnormality Status --------- ------ CBC Auto Differential[[id number]] Abnormal Final result Please view results for these tests on the individual orders. CBC Auto Differential [[id number]] (Abnormal) Collected: 07/04/257 Specimen: Blood Updated: 07/04/255 WBC 8.21 10*3/mm3 RBC 4.03 10*6/mm3 Hemoglobin 9.3 g/dL Hematocrit 31.1 % MCV 77.2 fL MCH 23.1 pg MCHC 29.9 g/dL RDW 17.5 % RDW-SD 48.1 fl MPV 9.3 fL Platelets 264 10*3/mm3 Neutrophil % 71.4 % Lymphocyte % 18.6 % Monocyte % 8.5 % Eosinophil % 0.5 % Basophil % 0.4 % Immature Grans % 0.6 % Neutrophils, Absolute 5.86 10*3/mm3 Lymphocytes, Absolute 1.53 10*3/mm3 Monocytes, Absolute 0.70 10*3/mm3 Eosinophils, Absolute 0.04 10*3/mm3 Basophils, Absolute 0.03 10*3/mm3 Immature Grans, Absolute 0.05 10*3/mm3 nRBC 0.0 /100 WBC POC Glucose Once [[id number]] (Abnormal) Collected: 07/03/252101 Specimen: Blood Updated: 07/03/252103 Glucose 143 mg/dL Comment: Serial Number: [id number]: [id number] POC Glucose Once [[id number]] (Abnormal) Collected: 07/03/252012 Specimen: Blood Updated: 07/03/252014 Glucose 142 mg/dL Comment: Serial Number: [id number]: [id number] Blood Gas, Arterial With Co-Ox [[id number]] (Abnormal) Collected: 07/03/251899 Specimen: Arterial Blood Updated: 07/03/251899 Site Right Radial Jaspreet's Test Positive pH, Arterial 7.362 pH units pCO2, Arterial 41.7 mm Hg pO2, Arterial 172.0 mm Hg HCO3, Arterial 23.6 mmol/L Base Excess, Arterial -1.7 mmol/L Hemoglobin, Blood Gas 9.9 g/dL Comment: 84 Value below reference range Hematocrit, Blood Gas 30.3 % Oxyhemoglobin 98.5 % Methemoglobin 0.40 % Carboxyhemoglobin 1.1 % CO2 Content 24.9 mmol/L Temperature 37.0 Barometric Pressure for Blood Gas -- Comment: N/A Modality Aerosol Mask FIO2 60 % Rate 0 Breaths/minute PIP 0 cmH2O Comment: Meter: [id number] Manager Rn: [id number] IPAP 0 EPAP 0 pH, Temp Corrected 7.362 pH Units pCO2, Temperature Corrected 41.7 mm Hg pO2, Temperature Corrected 172 mm Hg POC Glucose Once [[id number]] (Normal) Collected: 07/03/25 172 Specimen: Blood Updated: 07/03/25 172 Glucose 98 mg/dL Comment: Serial Number: [id number]: [id number] EEG Narrative: Reason for referral: 70 y.o.male with seizure-like activity Technical Summary: A 19 channel digital EEG was performed using the international 10-20 placement system, including eye leads and EKG leads. Duration: 27 minutes Findings: At the beginning of the study, the patient is noted to be a unresponsive to the technologist. He is having irregular coarse jerking of his left arm and his head is leaning to the right. The EEG background shows diffuse low amplitude 5 to 6 Hz theta present symmetrically over both hemispheres. Movement artifact is variably prominent in the left posterior electrodes (the patient's head is leaning to the left). Over the course of the study, no epileptiform activity or electrographic seizures are seen. The left arm tremoring continues variably throughout the entire study and has no associated EEG change. Photic stimulation does not change the background. Video: Available Technical quality: Good SUMMARY: EEG background is mild generalized slowing without focal features seen Near constant left arm tremoring has no EEG correlate and appears nonepileptic No epileptiform activity or electrographic seizures are seen Impression: Diffuse cerebral dysfunction of mild degree, nonspecific but most commonly seen due to toxic/metabolic cause Left arm tremoring is nonepileptic This report is transcribed using the [employer] dictation system. Assessment - Severe sepsis, POA - LEFT lower extremity cellulitis with wound infection - hx ESBL Klebsiella pneumoniae and pseudomonas aeruginosa - s/p Ultrasound-guided access of the right common femoral artery; Aortogram; 2 level angiogram left leg; Intravascular ultrasound interpretation of left common femoral artery, left superficial femoral artery and left popliteal artery; 6 [place] Angio-Seal closure of right common femoral arteriotomy; Sharp excisional debridement of left transmetatarsal amputation stump site with 10 blade scalpel down to the level of the skin; Application of negative pressure wound therapy wound measures 4.5 cm x6 cm x 1 mm on 07/03/[address] Hollingsworth - Urinary tract infection with hematuria - Severe PAD - Hx RIGHT BKA - Hx LLE revascularization with TMA - Diabetes mellitus type 2 with neuropathy - Hx IVC filter placement - Acute on chronic anemia - Hypertension - Coronary artery disease - Hx Medical non-compliance - Hx seizures - Bilateral inguinal hernias - BPH - Obesity - Former smoker - reportedly stopped 15 years ago - ?Memory loss? Plan - ID following for antx guidance - eliquis held in light of possible procedures -- OK to resume from vascular standpoint - pain control PRN - continue plavix - glycemic control - heparin SQ Q8H DVT ppx - PT wound care for vac management - he is adamant about no further amputations - palliative/hospice has been discussed with him in the past - follow-up outpatient in our office in 2 weeks with ABIs - vascular will sign off -- please call for any further vascular concerns Discharge Planning: pending * Gigi Alcantara MD - 07/04/2025 11:31 AM EDT Images from the original note were not included. [facility] Medicine Services PROGRESS NOTE Patient Name: Trung Pool : [id number] Date of Admission: 06/25/2025 Primary Care Physician: Gustavo Mehta MD Subjective Subjective CC: LLE wound HPI: Concern of pseudo seizures in postop, patient became quite somnolent however now doing very well ismore awake and alert eating his meal. Endorses pain in his leg 9 out of 10, states Percocet 10 mg do not touch him and if that is what I am going to continue he wants to stop it Objective Objective Vital Signs: Temp: [97.8 ??F (36.6 ??C)-98.2 ??F (36.8 ??C)] 97.8 ??F (36.6 ??C) Heart Rate: [56-89] 65 Resp: [12-18] 12 BP: (108-152)/(59-95) 138/76 Flow (L/min) (Oxygen Therapy): [1-2] 1 Physical Exam Cardiovascular: Rate and Rhythm: Normal rate. Pulses: Normal pulses. Pulmonary: Effort: Pulmonary effort is normal. No respiratory distress. Abdominal: General: There is no distension. Palpations: Abdomen is soft. Tenderness: There is no abdominal tenderness. There is no guarding or rebound. Musculoskeletal: Right lower leg: No edema. Left lower leg: No edema. Comments: LLE wrapped, Right BKA Skin: General: Skin is warm. Neurological: Mental Status: He is alert. Psychiatric: Mood and Affect: Mood normal. Behavior: Behavior normal. Results Reviewed: LAB RESULTS: Lab 07/04/2534607/02/2535806/30/2542806/29/25 0623 WBC 8.21 7.10 5.48 7.30 HEMOGLOBIN 9.3* 9.8* 9.2* 9.0* HEMATOCRIT 31.1* 32.8* 31.6* 29.2* PLATELETS 264 296 259 289 NEUTROS ABS 5.86 -- 3.05 4.71 IMMATURE GRANS (ABS) 0.05 -- 0.02 0.03 LYMPHS ABS 1.53 -- 1.32 1.44 MONOS ABS 0.70 -- 0.64 0.64 EOS ABS 0.04 -- 0.40 0.42* MCV 77.2* 79.0 80.0 75.5* Lab 07/04/25 0615 07/04/2534607/02/2535807/01/25 0329 06/30/25 0429 06/29/25 0624 SODIUM -- 135* 136 135* 138 138 POTASSIUM 5.9* 6.1* 5.1 4.7 4.7 4.5 CHLORIDE -- 106 104 104 107 106 CO2 -- 21.3* 21.2* 21.3* 20.8* 21.9* ANION GAP -- 7.7 10.8 9.7 10.2 10.1 BUN -- 14.1 16.9 13.7 12.3 11.4 CREATININE -- 0.78 0.93 0.93 0.89 0.89 EGFR -- 95.3 87.8 87.8 91.6 91.6 GLUCOSE -- 126* 124* 70 164* 175* CALCIUM -- 8.3* 8.6 8.7 8.4* 8.5* Lab 07/03/25 1900 PH, ARTERIAL 7.362 PCO2, ARTERIAL 41.7 PO2 ART 172.0* FIO2 60 HCO3 ART 23.6 BASE EXCESS ART -1.7* CARBOXYHEMOGLOBIN 1.1 Brief Urine Lab Results (Last result in the past 365 days) Color Clarity Blood Leuk Est Nitrite Protein CREAT Urine HCG 06/25/252000 Yellow Turbid Large (3+) Large (3+) Positive Trace Brief Urine Lab Results (Last result in the past 365 days) Color Clarity Blood Leuk Est Nitrite Protein CREAT Urine HCG 06/25/252000 Yellow Turbid Large (3+) Large (3+) Positive Trace Brief Urine Lab Results (Last result in the past 365 days) Color Clarity Blood Leuk Est Nitrite Protein CREAT Urine HCG 06/25/252000 Yellow Turbid Large (3+) Large (3+) Positive Trace Microbiology Results Abnormal Procedure Component Value - Date/Time Urine Culture - Urine, Indwelling Urethral Catheter [[id number]] (Abnormal) (Susceptibility) Collected: 06/25/252000 Lab Status: Final result Specimen: Urine from Indwelling Urethral Catheter Updated: 06/30/25 1001 Urine Culture >100,000 CFU/mL Proteus mirabilis Narrative: Colonization of the urinary tract without infection is common. Treatment is discouraged unless the patient is symptomatic, , or undergoing an invasive urologic procedure. Susceptibility Proteus mirabilis MURRAY Amoxicillin + Clavulanate Susceptible Ampicillin Resistant Ampicillin + Sulbactam Intermediate Cefazolin (Urine) Resistant Cefepime Resistant Ceftazidime Susceptible Ceftriaxone Resistant Cefuroxime axetil Resistant Ciprofloxacin Resistant Gentamicin Susceptible Levofloxacin Resistant Nitrofurantoin Resistant Piperacillin + Tazobactam Susceptible Trimethoprim + Sulfamethoxazole Resistant Blood Culture - Blood, Hand, Right [[id number]] (Abnormal) (Susceptibility) Collected: 06/25/252029 Lab Status: Edited Result - FINAL Specimen: Blood from Hand, Right Updated: 06/29/25 0713 Blood Culture Enterococcus faecium Comment: Infectious disease consultation is highly recommended. Isolated from Anaerobic Bottle Gram Stain Anaerobic Bottle Gram positive cocci in chains Narrative: Less than seven (7) mL's of blood was collected. Insufficient quantity may yield false negative results. requested linezolid & daptomycin 06/28/25 Susceptibility Enterococcus faecium MURRAY Method Not Specified Ampicillin Susceptible Daptomycin Susceptible dose dependent Gentamicin High Level Synergy Susceptible Linezolid Susceptible (C) [1] Vancomycin Susceptible [1] Appended report. These results have been appended to a previously final verified report. Wound Culture - Swab, Foot, Left [[id number]] (Abnormal) (Susceptibility) Collected: 06/25/251817 Lab Status: Final result Specimen: Swab from Foot, Left Updated: 06/29/25 0645 Wound Culture Heavy growth (4+) Staphylococcus aureus, MRSA Comment: Methicillin resistant Staphylococcus aureus, Patient may be an isolation risk. Moderate growth (3+) Morganella morganii ssp morganii Moderate growth (3+) Proteus mirabilis ESBL Comment: Consider infectious disease consult. Susceptibility results may not correlate to clinical outcomes. Gram Stain Few (2+) WBCs seen Few (2+) Gram positive cocci in pairs, chains and clusters Few (2+) Gram negative bacilli Susceptibility Staphylococcus aureus, MRSA MURRAY Clindamycin Susceptible Erythromycin Resistant Oxacillin Resistant Rifampin Susceptible Tetracycline Susceptible Trimethoprim + Sulfamethoxazole Resistant Vancomycin Susceptible Susceptibility Morganella morganii ssp morganii MURRAY Method Not Specified Amoxicillin + Clavulanate Resistant Ampicillin Resistant Ampicillin + Sulbactam Resistant Cefazolin (Non Urine) Resistant Cefepime Susceptible Cefotaxime Susceptible Ceftazidime Susceptible Cefuroxime axetil Resistant Ciprofloxacin Resistant Gentamicin Susceptible Levofloxacin Resistant Piperacillin + Tazobactam Susceptible Tetracycline Susceptible Trimethoprim + Sulfamethoxazole Resistant Susceptibility Proteus mirabilis ESBL MURRAY Ciprofloxacin Resistant Ertapenem Susceptible Levofloxacin Resistant Meropenem Susceptible Tetracycline Resistant Trimethoprim + Sulfamethoxazole Resistant Susceptibility Comments Morganella morganii ssp morganii Cefotaxime susceptibility can be used as a surrogate for ceftriaxone susceptibility Proteus mirabilis ESBL With the exception of urinary-sourced infections, aminoglycosides should not be used as monotherapy. Blood Culture ID, PCR - Blood, Hand, Right [[id number]] (Abnormal) Collected: 06/25/252029 Lab Status: Final result Specimen: Blood from Hand, Right Updated: 06/26/252101 BCID, PCR Enterococcus faecium. Zee/B (vancomycin resistance gene) not detected. Identification by BCID2 PCR. BOTTLE TYPE Anaerobic Bottle Narrative: Infectious disease consultation is highly recommended to rule out distant foci of infection. MRSA Screen, PCR (Inpatient) - Swab, Nares [[id number]] (Abnormal) Collected: 06/26/2545 Lab Status: Final result Specimen: Swab from Nares Updated: 06/26/25 0850 MRSA PCR Positive Narrative: The negative predictive value of this diagnostic test is high and should only be used to consider de-escalating anti-MRSA therapy. A positive result may indicate colonization with MRSA and must be correlated clinically. Gastrointestinal Panel, PCR - Stool, Per Rectum [[id number]] (Abnormal) Collected: 06/26/2545 Lab Status: Final result Specimen: Stool from Per Rectum Updated: 06/26/25 0850 Campylobacter Not Detected Plesiomonas shigelloides Not Detected Salmonella Not Detected Vibrio Not Detected Vibrio cholerae Not Detected Yersinia enterocolitica Not Detected Enteroaggregative E. coli (EAEC) Not Detected Enteropathogenic E. coli (EPEC) Not Detected Enterotoxigenic E. coli (ETEC) lt/st Not Detected Shiga-like toxin-producing E. coli (STEC) stx1/stx2 Not Detected Shigella/Enteroinvasive E. coli (EIEC) Not Detected Cryptosporidium Not Detected Cyclospora cayetanensis Not Detected Entamoeba histolytica Not Detected Giardia lamblia Not Detected Adenovirus F40/41 Not Detected Astrovirus Not Detected Norovirus GI/GII Detected Comment: If a positive Norovirus result is inconsistent with clinical presentation, the positive Norovirus result should be confirmed using another method. Rotavirus A Not Detected Sapovirus (I, II, IV or V) Not Detected Clostridioides difficile Toxin - Stool, Per Rectum [[id number]] (Abnormal) Collected: 06/26/2545 Lab Status: Final result Specimen: Stool from Per Rectum Updated: 06/26/25 8926 Narrative: The following orders were created for panel order Clostridioides difficile Toxin - Stool, Per Rectum. Procedure Abnormality Status --------- ------ Clostridioides difficile...[[id number]] Abnormal Final result Please view results for these tests on the individual orders. Clostridioides difficile Toxin, PCR - Stool, Per Rectum [[id number]] (Abnormal) Collected: 06/26/25 0046 Lab Status: Final result Specimen: Stool from Per Rectum Updated: 06/26/25 0755 Toxigenic C. difficile by PCR Detected Narrative: DNA from a toxigenic strain of C.difficile has been detected. EEG Result Date: 07/04/2025 Reason for referral: 70 y.o.male with seizure-like activity Technical Summary: A 19 channel digitalEEG was performed using the international 10-20 placement system, including eye leads and EKG leads. Duration: 27 minutes Findings: At the beginning of the study, the patient is noted to be a unresponsive to the technologist. He is having irregular coarse jerking of his left arm and his head is leaning to the right. The EEG background shows diffuse low amplitude 5 to 6 Hz theta present symmetrically over both hemispheres. Movement artifact is variably prominent in the left posterior electrodes (the patient's head is leaning to the left). Over the course of the study, no epileptiform activity or electrographic seizures are seen. The left arm tremoring continues variably throughout the entirestudy and has no associated EEG change. Photic stimulation does not change the background. Video: Available Technical quality: Good SUMMARY: EEG background is mild generalized slowing without focal features seen Near constant left arm tremoring has no EEG correlate and appears nonepileptic No epileptiform activity or electrographic seizures are seen Impression: Diffuse cerebral dysfunction of mild degree, nonspecific but most commonly seen due to toxic/metabolic cause Left arm tremoring is nonepileptic This report is transcribed using the [employer] system. CT Head Without Contrast Result Date: 07/03/2025 CT HEAD WO CONTRAST Date of Exam: 07/03/2025 8:35 PM EDT Indication: altered mental status. Comparison: None available. Technique: Axial CT images were obtained of the head without contrast administration. Automated exposure control and iterative construction methods were used. FINDINGS: Gutierrez-white differentiation is maintained and there is no evidence of intracranial hemorrhage, mass or mass effect. Age-related changes of the brain are present including volume loss and typical periventricular sequela of chronic small vessel ischemia. There is otherwise no evidence of intracranial hemorrhage,mass or mass effect. The ventricles are normal in size and configuration accounting for surroundingvolume loss. The orbits are normal and the paranasal sinuses are grossly clear. Impression: Age-related changes of the brain as above, otherwise without evidence of acute intracranial abnormality. Electronically Signed: Ravi Swartz MD 07/03/2025 9:11 PM EDT Workstation ID: [id number] Results for orders placed during the hospital encounter of 08/31/24 Adult Transthoracic Echo Complete W/ Cont if Necessary Per Protocol 09/12/2024 4:10 PM Interpretation Summary ??? Left ventricular systolic function is normal. Calculated left ventricular EF = 52.5% ??? There is a trivial pericardial effusion. ??? The aortic valve exhibits sclerosis. ??? Mitral annular calcification is present. I have personally reviewed the therapy plans: [] PT/OT/ ST Therapy Plans Current medications: Scheduled Meds:[Held by provider] apixaban, 5 mg, Oral, BID vitamin C, 500 mg, Oral, Daily baclofen, 10 mg, Oral, Q12H carvedilol, 3.125 mg, Oral, BID With Meals clopidogrel, 75 mg, Oral, Daily famotidine, 20 mg, Oral, BID AC finasteride, 5 mg, Oral, Daily folic acid, 1 mg, Oral, Daily gabapentin, 300 mg, Oral, Q8H heparin (porcine), 5,000 Units, Subcutaneous, Q8H insulin glargine, 56 Units, Subcutaneous, Nightly lamoTRIgine, 100 mg, Oral, Daily lamoTRIgine, 250 mg, Oral, Nightly meropenem, 500 mg, Intravenous, Q6H methenamine, 1 g, Oral, BID With Meals multivitamin with minerals, 1 tablet, Oral, Daily sacubitril-valsartan, 1 tablet, Oral, BID sodium chloride, 10 mL, Intravenous, Q12H sodium chloride, 10 mL, Intravenous, Q12H vancomycin, 1,000 mg, Intravenous, Q12H vancomycin, 125 mg, Oral, 4x Daily Followed by [START ON 07/10/2025] vancomycin, 125 mg, Oral, TID Followed by [START ON 07/17/2025] vancomycin, 125 mg, Oral, BID Followed by [START ON 07/25/2025] vancomycin, 125 mg, Oral, Daily Followed by [START ON 08/01/2025] vancomycin, 125 mg, Oral, Weekly Continuous Infusions:lactated ringers, 9 mL/hr Pharmacy to dose vancomycin, PRN Meds:.??? acetaminophen OR acetaminophen OR acetaminophen ??? aluminum-magnesium hydroxide-simethicone ??? senna-docusate sodium AND polyethylene glycol AND bisacodyl AND bisacodyl ??? Calcium Replacement - Follow Nurse / BPA Driven Protocol ??? influenza vaccine ??? ipratropium-albuterol ??? LORazepam ??? Magnesium Cardiology Dose Replacement - Follow Nurse / BPA Driven Protocol ??? [DISCONTINUED] Morphine AND naloxone ??? nitroglycerin ??? ondansetron ??? oxyCODONE-acetaminophen ??? Pharmacy to dose vancomycin ??? Phosphorus Replacement - Follow Nurse / BPA Driven Protocol ??? Potassium Replacement - Follow Nurse / BPA Driven Protocol ??? Insert Peripheral IV AND sodium chloride ??? sodium chloride ??? sodium chloride ??? sodium chloride ??? sodium chloride Assessment & Plan Assessment & Plan Active Hospital Problems Diagnosis POA ??? Gastroenteritis due to norovirus [A08.11] Yes ??? Acute UTI (urinary tract infection) [N39.0] Yes ??? Diarrhea of presumed infectious origin [R19.7] Yes ??? Acute on chronic blood loss anemia [D62] Yes ??? BPH without obstruction/lower urinary tract symptoms [N40.0] Yes ??? GERD without esophagitis [K21.9] Yes ??? Bilateral inguinal hernia [K40.20] Yes ??? Cellulitis [L03.90] Yes ??? Type 2 diabetes mellitus, with long-term current use of insulin [E11.9, Z79.4] Not Applicable ??? Wound infection [T14.8XXA, L08.9] Unknown ??? PAD (peripheral artery disease) [I73.9] Yes ??? Coronary artery disease involving [place] coronary artery of [place] heart without angina pectoris [I25.10] Yes ??? Seizure disorder [G40.909] Yes ??? Primary hypertension [I10] Yes Resolved Hospital Problems No resolved problems to display. Brief Hospital Course to date: Trung Pool is a 70 y.o. male with a past medical history of coronary artery disease, peripheral artery disease, type 2 diabetes mellitus (on insulin), right above-knee amputation, and seizure disorder, who was admitted with hematuria, left foot stump drainage, fatigue, and diarrhea. Workup notable for norovirus and Enterococcus bacteremia. Urology, Infectious disease and vascular surgery consulted while inpatient. Planning for left lower extremity debridement and possible wound VAC placement with vascular surgery. Severe PAD History of right BKA, LLE revascularization and toe amputation Cellulitis and Left Lower Extremity Wound MRSA + Enterococcus bacteremia Patient with increased redness, fluid drainage and ulceration of the left stump MRI L foot showing edema in the distal first and second metatarsal diaphyses at the resection margins, osteomyelitis is not excluded, diffuse soft tissue edema and skin thickening about the remainingfoot. No definite abscess noted. Nondisplaced intra-articular fracture of the distal tibia with associated marrow edema. Follow-up CT angio left lower extremity revealing with moderate focal narrowing at the junction of the SFA and the popliteal artery. 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 Patency of the anterior and posterior tibial arteries difficult to assess due to significant venous contamination and heavy calcification. Left lower extremity arterial dopplers abnormal waveforms suggest inflow disease. Moderate 60% stenosis in the left SFA, the left CHIP appears to be occluded filling vis collaterals retrograde Blood cultures positive for Enterococcus faecium Infectious disease consulted, continue IV merrem, IV/PO vancomycin Vascular surgery consulted in the evaluation follows with Dr. Marcano; recommending more debridement of LLE and possible wound vac placement; tentative OR scheduling for 07/03/2025 Resume Plavix and DVT ppx, holding Eliquis secondary to upcoming procedure Patient has been adamant about not having any more amputation Patient endorsing severe pain, has been on Percocet 10 and gabapentin 300 mg 3 times daily, patientstates he wants a higher dose otherwise will not take Percocet 10. Given significance of his pain and underlying pathology will initiate Percocet 15 every 6 hours as needed along with gabapentin 400 mg 3 times daily, he has been consistently getting his Percocets Consultation to palliative care to assist with pain management Acute UTI and hematuria History of BPH He reported blood in his urine with associated odor and had a De Los Santos catheter in place. UA with 4+ bacteria TNTC WBC. Urine culture with Proteus CT imaging revealed moderate bladder distention, small amount of gas in the bladder, and mildly decreased bladder wall thickening compared to prior exam. H&H stable, continue holding Eliquis per above Urology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 conjunctival injection. No [...] or HSM. EXT: see below : With De Los Santos catheter. MSK: FROM without joint effusions noted arms/legs. SKIN: Warm and dry without cutaneous eruptions on Inspection/palpation. NEURO: not following my command Left foot amputation noted surgical site covered. Vague erythema from mid burrell to foot with some light scale but no discrete mass bulge or fluctuance. No crepitus or bulla Right side amputation no obvious open wound or new redness/induration Laboratory Data Results from last 7 days Lab Units 07/04/25 0347 07/02/25 0359 06/30/25 0429 WBC 10*3/mm3 8.21 7.10 5.48 HEMOGLOBIN g/dL 9.3* 9.8* 9.2* HEMATOCRIT % 31.1* 32.8* 31.6* PLATELETS 10*3/mm3 264 296 259 Results from last 7 days Lab Units 07/04/25 0615 07/04/25 0347 SODIUM mmol/L -- 135* POTASSIUM mmol/L 5.9* 6.1* CHLORIDE mmol/L -- 106 CO2 mmol/L -- 21.3* BUN mg/dL -- 14.1 CREATININE mg/dL -- 0.78 GLUCOSE mg/dL -- 126* CALCIUM mg/dL -- 8.3* Estimated Creatinine Clearance: 113.3 mL/min (by C-G formula based on SCr of 0.78 mg/dL). Microbiology: Radiology: Imaging Results (Last 72 Hours) Procedure Component Value Units Date/Time CT Head Without Contrast [[id number]] Collected: 07/03/252109 Updated: 07/03/252113 Narrative: CT HEAD WO CONTRAST Date of Exam: 07/03/2025 8:35 PM EDT Indication: altered mental status. Comparison: None available. Technique: Axial CT images were obtained of the head without contrast administration. Automated exposure control and iterative construction methods were used. FINDINGS: Gutierrez-white differentiation is maintained and there is no evidence of intracranial hemorrhage, mass or mass effect. Age-related changes of the brain are present including volume loss and typical periventricular sequela of chronic small vessel ischemia. There is otherwise no evidence of intracranial hemorrhage, mass or mass effect. The ventricles are normal in size and configuration accounting for surrounding volume loss. The orbits are normal and the paranasal sinuses are grossly clear. Impression: Age-related changes of the brain as above, otherwise without evidence of acute intracranial abnormality. Electronically Signed: Ravi Swartz MD 07/03/2025 9:11 PM EDT Workstation ID: [id number] Procedure [[id number]] Resulted: 07/03/251543 Updated: 07/03/251543 Impression: --acute left lower leg/foot cellulitis and wound infection, prior culture July 2024 with ESBL Klebsiella pneumoniae and pseudomonas aeruginosa, pseudomonas was sensitive to Merrem per microbiology lab at [facility]. Cx at [facility] as below; He has had multiple surgeries and multiple p ractitioners recommend higher level amputation which he has refused. On prior admissions, he has refused outpatient IV antibiotics and he has refused placement for longer durations of IV antibiotics.This refusal of care has placed him at increased risk for poor outcome. Earlier in 2024 he was discharged to the care of Dr. Oneal, his outpatient ID doctor and Dr Faust his automobile travel club counselor for furthercare/workup ; readmission May 2025 and June 2025 with acute worsening in redness/drainage to left lower extremity. High risk for further serious morbidity and other serious sequela includingpersistent/recurrent or nonhealing wounds, persistent/progressive or recurrent infection and risk for further functional/limb loss, higher-level amputation and other dire consequences including sepsis/mortalityetc. he remains opposed to amputation; he voices understanding his poor prognosis overallincluding risks for dire consequences; past Cx with MRSA/PSA/ESBL at prior admissions; culture June 02, 2025 with Proteus/MRSA/PSA; Cx June 2025 below; further imaging no definitive osteomyelitis but also unable to exclude per radiology at distal first/second MT; surgery with I&D 07/03 but no further bone debridement/amputation --E Faecium bacteremia ; NOT vanco resistant; ?foot source -v- other --Acute hematuria/UTI with chronic indwelling De Los Santos catheter. Proteus in culture so far; nursing reports De Los Santos catheter has been changed since admission; urology evaluation for further consideration of cystoscopy versus SP catheter or other; urine microscopic with yeast and potential for yeast colon ization/contaminant --Acute diarrhea, Norovirus + and C. Difficile PCR +, although toxin antigen negative. He has risk for active disease and does have symptomatology and requires antibiotics for other processes, and therefore oral vancomycin added although unable to definitively confirm active disease with toxin antigen negative ( although risk for false negative); supportive care ongoing --MRSA surveillance + --Peripheral arterial disease by past evaluation of vascular team in addition to history DVT. 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; postop after 07/03 surgery with decreased LOC, seen bymedicine and adjustments per them in medications; further neuro workup per medicine / neuro team --Hx QTc > 500 ms on prior EKG PLAN: --IV vancomycin//merrem, oral vancomycin; likely to need IV abx in loight of bacteremia/abnormal MRI wound culture June 02, 2025 with Proteus /MRSA, PSA urine culture June 02, 2025 E Coli/ESBL Proteus urine culture 06/25 proteus blood culture 06/25 E Faecium vanco/amp sensitive; dapto sens but dose dependent wound culture 06/25 (surface) with MRSA and ESBL proteus and morganella -Dr Marcano with plans for further debridement which should help give additional information regarding extent of disease at foot --Check/review labs cultures and scans --Partial history [...] caregivers regarding antimicrobial stewardship and antibiotic resistance. Duglas Andres MD 07/04/2025 [1] Allergies Allergen Reactions Keppra [Levetiracetam] Other (See Comments) Acute psychosis Bupropion Unknown (See Comments) Codeine Nausea Only Hydrocodone Unknown (See Comments) Ketorolac Tromethamine Unknown (See Comments) [2] Current Facility-Administered Medications Medication Dose Route Frequency Provider Last Rate Last Admin acetaminophen (TYLENOL) tablet 650 mg 650 mg Oral Q4H PRN Amanda Bermudez MD 650 mg at 06/29/25 0343 Or acetaminophen (TYLENOL) 160 MG/5ML oral solution 650 mg 650 mg Oral Q4H PRN Amanda Bermudez MD Or acetaminophen (TYLENOL) suppository 650 mg 650 mg Rectal Q4H PRN Amanda Bermudez MD aluminum-magnesium hydroxide-simethicone (MAALOX MAX) 400-400-40 MG/5ML suspension 15 mL 15 mL [id number] PRN Amanda Bermuedz MD [Held by provider] apixaban (ELIQUIS) tablet 5 mg 5 mg Oral BID Amanda Bermudez MD ascorbic acid (VITAMIN C) tablet 500 mg 500 mg Oral Daily Amanda Bermudez MD 500 mg at 07/01/25 0830 baclofen (LIORESAL) tablet 10 mg 10 mg Oral Q12H Amanda Bermudez MD 10 mg at 07/01/25 2144 sennosides-docusate (PERICOLACE) 8.6-50 MG per tablet 2 tablet 2 tablet Oral BID PRN Amanda Bermudez MD And polyethylene glycol (MIRALAX) packet 17 g 17 g Oral Daily PRN Amanda Bermudez MD And bisacodyl (DULCOLAX) EC tablet 5 mg 5 mg Oral Daily PRN Amanda Bermudez MD And bisacodyl (DULCOLAX) suppository 10 mg 10 mg Rectal Daily PRN Amanda Bermudez MD Calcium Replacement - Follow Nurse / BPA Driven Protocol Not Applicable PRN Amanda Bermudez MD carvedilol (COREG) tablet 3.125 mg 3.125 mg Oral BID With Meals Amanda Bermudez MD 3.125 mg at 07/01/25 1712 clopidogrel (PLAVIX) tablet 75 mg 75 mg Oral Daily Amanda Bermudez MD 75 mg at 07/01/25 0830 famotidine (PEPCID) tablet 20 mg 20 mg Oral BID AC Arnoldo Crews, OlgaD 20 mg at 07/02/25 0649 finasteride (PROSCAR) tablet 5 mg 5 mg Oral Daily Amanda Bermudez MD 5 mg at 07/01/25 0830 folic acid (FOLVITE) tablet 1 mg 1 mg Oral Daily Amanda Bermudez MD 1 mg at 07/01/25 0830 gabapentin (NEURONTIN) capsule 300 mg 300 mg Oral Q8H Milena Jo APRN 300 mg at 07/02/25 0649 heparin (porcine) 5000 UNIT/ML injection 5,000 Units 5,000 Units Subcutaneous Q8H Lupe Albert APRN 5,000 Units at 07/02/25 0649 influenza vac split high-dose (FLUZONE HIGH DOSE) injection 0.5 mL 0.5 mL Intramuscular During Hospitalization Kris Boston DO insulin glargine (LANTUS, SEMGLEE) injection 56 Units 56 Units Subcutaneous Nightly Amanda Bermudez MD 56 Units at 07/01/25 2145 ipratropium-albuterol (DUO-NEB) nebulizer solution 3 mL 3 mL Nebulization Q6H PRN Amanda Bermudez MD lamoTRIgine (LaMICtal) tablet 100 mg 100 mg Oral Daily Amanda Bermudez MD 100 mg at 07/01/25 0830 lamoTRIgine (LaMICtal) tablet 250 mg 250 mg Oral Nightly Amanda Bermudez MD 250 mg at 07/01/25 2144 Magnesium Cardiology Dose Replacement - Follow Nurse / BPA Driven Protocol Not Applicable PRN Amanda Bermudez MD meropenem (MERREM) 500 mg in sodium chloride 0.9 % 100 mL MBP 500 mg Intravenous Q6H Duglas Andres MD 500 mg at 07/02/25 0359 methenamine (HIPREX) tablet 1 g 1 g Oral BID With Meals Amanda Bermudez MD 1 g at 07/01/25 1713 multivitamin with minerals 1 tablet 1 tablet Oral Daily Amanda Bermudez MD 1 tablet at 07/01/25 0830 naloxone (NARCAN) injection 0.4 mg 0.4 mg Intravenous Q5 Min PRN Amanda Bermudez MD nitroglycerin (NITROSTAT) SL tablet 0.4 mg 0.4 mg Sublingual Q5 Min PRN Amanda Bermudez MD ondansetron (ZOFRAN) injection 4 mg 4 mg Intravenous Q6H PRN Amanda Bermudez MD 4 mg at 06/29/25 1646 oxyCODONE-acetaminophen (PERCOCET) 10-325 MG per tablet 1 tablet 1 tablet Oral Q6H PRN Kris Boston DO 1 tablet at 07/02/25 0125 Pharmacy to dose vancomycin Not Applicable Continuous PRN Duglas Andres MD Phosphorus Replacement - Follow Nurse / BPA Driven Protocol Not Applicable PRN Amanda Bermudez MD Potassium Replacement - Follow Nurse / BPA Driven Protocol Not Applicable PRN Amanda Bermudez MD sacubitril-valsartan (ENTRESTO) 24-26 MG tablet 1 tablet 1 tablet Oral BID Amanda Bermudez MD 1 tablet at 07/01/25 2144 sodium chloride 0.9 % flush 10 mL 10 mL Intravenous PRN Ally Jeffers V, DIABETES NURSE sodium chloride 0.9 % flush 10 mL 10 mL Intravenous Q12H Amanda Bermudez MD 10 mL at 07/01/25 0832 sodium chloride 0.9 % flush 10 mL 10 mL Intravenous PRN Amanda Bermudez MD sodium chloride 0.9 % flush 10 mL 10 mL Intravenous Q12H Duglas Andres MD 10 mL at 07/01/25 2145 sodium chloride 0.9 % flush 10 mL 10 mL Intravenous PRN Duglas Andres MD sodium chloride 0.9 % flush 20 mL 20 mL Intravenous PRN Duglas Andres MD sodium chloride 0.9 % infusion 40 mL 40 mL Intravenous PRN Duglas Andres MD vancomycin (VANCOCIN) 1,000 mg in sodium chloride 0.9 % 250 mL IVPB-VTB 1,000 mg Intravenous Q12H Osmany Mccann, [facility] 250 mL/hr at 07/01/25 2143 1,000 mg at 07/01/25 2143 vancomycin (VANCOCIN) capsule 125 mg 125 mg Oral 4x Daily Duglas Andres MD 125 mg at Followed by [START ON 07/10/2025] vancomycin (VANCOCIN) capsule 125 mg 125 mg Oral TID Duglas Andres MD Followed by [START ON 07/17/2025] vancomycin (VANCOCIN) capsule 125 mg 125 mg Oral BID Duglas Andres MD Followed by [START ON 07/25/2025] vancomycin (VANCOCIN) capsule 125 mg 125 mg Oral Daily Duglas Andres MD Followed by [START ON 08/01/2025] vancomycin (VANCOCIN) capsule 125 mg 125 mg Oral Weekly Duglas Andres MD * Kris Boston, DO - 07/03/2025 11:47 AM EDT Images from the original note were not included. [facility] Medicine Services PROGRESS NOTE Patient Name: Trung Pool : [id number] Date of Admission: 06/25/2025 Primary Care Physician: Gustavo Mehta MD Subjective Subjective CC: LLE wound HPI: Patient seen resting comfortably in bed in no acute distress. Reports bowel movement today. Reportscontinued left lower extremity pain. Eager for operative intervention today. Otherwise no acute complaints. Objective Objective Vital Signs: Temp: [97.4 ??F (36.3 ??C)-98.2 ??F (36.8 ??C)] 98.2 ??F (36.8 ??C) Heart Rate: [67-89] 73 Resp: [18-20] 18 BP: (108-151)/(64-95) 108/95 Physical Exam Cardiovascular: Rate and Rhythm: Normal rate. Pulses: Normal pulses. Pulmonary: Effort: Pulmonary effort is normal. No respiratory distress. Abdominal: General: There is no distension. Palpations: Abdomen is soft. Tenderness: There is no abdominal tenderness. There is no guarding or rebound. Musculoskeletal: Right lower leg: No edema. Left lower leg: No edema. Comments: LLE wrapped, Right BKA Skin: General: Skin is warm. Neurological: Mental Status: He is alert. Psychiatric: Mood and Affect: Mood normal. Behavior: Behavior normal. Results Reviewed: LAB RESULTS: Lab 07/02/25 0359 06/30/25 0429 06/29/25 0623 06/27/25 0400 WBC 7.10 5.48 7.30 9.98 HEMOGLOBIN 9.8* 9.2* 9.0* 9.4* HEMATOCRIT 32.8* 31.6* 29.2* 30.4* PLATELETS 296 259 289 274 NEUTROS ABS -- 3.05 4.71 6.79 IMMATURE GRANS (ABS) -- 0.02 0.03 0.04 LYMPHS ABS -- 1.32 1.44 1.79 MONOS ABS -- 0.64 0.64 0.83 EOS ABS -- 0.40 0.42* 0.47* MCV 79.0 80.0 75.5* 77.4* Lab 07/02/25 0359 07/01/25 0329 06/30/25 0429 06/29/25 0624 06/28/25 0400 06/27/25 0400 SODIUM 136 135* 138 138 140 139 POTASSIUM 5.1 4.7 4.7 4.5 4.6 4.3 CHLORIDE 104 104 107 106 111* 109* CO2 21.2* 21.3* 20.8* 21.9* 21.7* 20.3* ANION GAP 10.8 9.7 10.2 10.1 7.3 9.7 BUN 16.9 13.7 12.3 11.4 11.0 15.3 CREATININE 0.93 0.93 0.89 0.89 0.79 0.92 EGFR 87.8 87.8 91.6 91.6 95.0 88.9 GLUCOSE 124* 70 164* 175* 125* 91 CALCIUM 8.6 8.7 8.4* 8.5* 8.2* 8.1* MAGNESIUM -- -- -- -- -- 2.2 Brief Urine Lab Results (Last result in the past 365 days) Color Clarity Blood Leuk Est Nitrite Protein CREAT Urine [facility] 06/25/252000 Yellow Turbid Large (3+) Large (3+) Positive Trace Brief Urine Lab Results (Last result in the past 365 days) Color Clarity Blood Leuk Est Nitrite Protein CREAT Urine [facility] [place]/25/252000 Yellow Turbid Large (3+) Large (3+) Positive Trace Brief Urine Lab Results (Last result in the past 365 days) Color Clarity Blood Leuk Est Nitrite Protein CREAT Urine [facility] [place] 06/25/252000 Yellow Turbid Large (3+) Large (3+) Positive Trace Microbiology Results Abnormal Procedure Component Value - Date/Time Urine Culture - Urine, Indwelling Urethral Catheter [[id number]] (Abnormal) (Susceptibility) Collected: 06/25/252000 Lab Status: Final result Specimen: Urine from Indwelling Urethral Catheter Updated: 06/30/25 1001 Urine Culture >100,000 CFU/mL Proteus mirabilis Narrative: Colonization of the urinary tract without infection is common. Treatment is discouraged unless the patient is symptomatic, , or undergoing an invasive urologic procedure. Susceptibility Proteus mirabilis MURRAY Amoxicillin + Clavulanate Susceptible Ampicillin Resistant Ampicillin + Sulbactam Intermediate Cefazolin (Urine) Resistant Cefepime Resistant Ceftazidime Susceptible Ceftriaxone Resistant Cefuroxime axetil Resistant Ciprofloxacin Resistant Gentamicin Susceptible Levofloxacin Resistant Nitrofurantoin Resistant Piperacillin + Tazobactam Susceptible Trimethoprim + Sulfamethoxazole Resistant Blood Culture - Blood, Hand, Right [[id number]] (Abnormal) (Susceptibility) Collected: 06/25/252029 Lab Status: Edited Result - FINAL Specimen: Blood from Hand, Right Updated: 06/29/25 0713 Blood Culture Enterococcus faecium Comment: Infectious disease consultation is highly recommended. Isolated from Anaerobic Bottle Gram Stain Anaerobic Bottle Gram positive cocci in chains Narrative: Less than seven (7) mL's of blood was collected. Insufficient quantity may yield false negative results. requested linezolid & daptomycin 06/28/25 Susceptibility Enterococcus faecium MURRAY Method Not Specified Ampicillin Susceptible Daptomycin Susceptible dose dependent Gentamicin High Level Synergy Susceptible Linezolid Susceptible (C) [1] Vancomycin Susceptible [1] Appended report. These results have been appended to a previously final verified report. Wound Culture - Swab, Foot, Left [[id number]] (Abnormal) (Susceptibility) Collected: 06/25/251817 Lab Status: Final result Specimen: Swab from Foot, Left Updated: 06/29/25 0645 Wound Culture Heavy growth (4+) Staphylococcus aureus, MRSA Comment: Methicillin resistant Staphylococcus aureus, Patient may be an isolation risk. Moderate growth (3+) Morganella morganii ssp morganii Moderate growth (3+) Proteus mirabilis ESBL Comment: Consider infectious disease consult. Susceptibility results may not correlate to clinical outcomes. Gram Stain Few (2+) WBCs seen Few (2+) Gram positive cocci in pairs, chains and clusters Few (2+) Gram negative bacilli Susceptibility Staphylococcus aureus, MRSA MURRAY Clindamycin Susceptible Erythromycin Resistant Oxacillin Resistant Rifampin Susceptible Tetracycline Susceptible Trimethoprim + Sulfamethoxazole Resistant Vancomycin Susceptible Susceptibility Morganella morganii ssp morganii MURRAY Method Not Specified Amoxicillin + Clavulanate Resistant Ampicillin Resistant Ampicillin + Sulbactam Resistant Cefazolin (Non Urine) Resistant Cefepime Susceptible Cefotaxime Susceptible Ceftazidime Susceptible Cefuroxime axetil Resistant Ciprofloxacin Resistant Gentamicin Susceptible Levofloxacin Resistant Piperacillin + Tazobactam Susceptible Tetracycline Susceptible Trimethoprim + Sulfamethoxazole Resistant Susceptibility Proteus mirabilis ESBL MURRAY Ciprofloxacin Resistant Ertapenem Susceptible Levofloxacin Resistant Meropenem Susceptible Tetracycline Resistant Trimethoprim + Sulfamethoxazole Resistant Susceptibility Comments Morganella morganii ssp morganii Cefotaxime susceptibility can be used as a surrogate for ceftriaxone susceptibility Proteus mirabilis ESBL With the exception of urinary-sourced infections, aminoglycosides should not be used as monotherapy. Blood Culture ID, PCR - Blood, Hand, Right [[id number]] (Abnormal) Collected: 06/25/252029 Lab Status: Final result Specimen: Blood from Hand, Right Updated: 06/26/252101 BCID, PCR Enterococcus faecium. Zee/B (vancomycin resistance gene) not detected. Identification byBCID2 PCR. BOTTLE TYPE Anaerobic Bottle Narrative: Infectious disease consultation is highly recommended to rule out distant foci of infection. MRSA Screen, PCR (Inpatient) - Swab, Nares [[id number]] (Abnormal) Collected: 06/26/2545 Lab Status: Final result Specimen: Swab from Nares Updated: 06/26/25 0850 MRSA PCR Positive Narrative: The negative predictive value of this diagnostic test is high and should only be used to consider de-escalating anti-MRSA therapy. A positive result may indicate colonization with MRSA and must be correlated clinically. Gastrointestinal Panel, PCR - Stool, Per Rectum [[id number]] (Abnormal) Collected: 06/26/2545 Lab Status: Final result Specimen: Stool from Per Rectum Updated: 06/26/25 0850 Campylobacter Not Detected Plesiomonas shigelloides Not Detected Salmonella Not Detected Vibrio Not Detected Vibrio cholerae Not Detected Yersinia enterocolitica Not Detected Enteroaggregative E. coli (EAEC) Not Detected Enteropathogenic E. coli (EPEC) Not Detected Enterotoxigenic E. coli (ETEC) lt/st Not Detected Shiga-like toxin-producing E. coli (STEC) stx1/stx2 Not Detected Shigella/Enteroinvasive E. coli (EIEC) Not Detected Cryptosporidium Not Detected Cyclospora cayetanensis Not Detected Entamoeba histolytica Not Detected Giardia lamblia Not Detected Adenovirus F40/41 Not Detected Astrovirus Not Detected Norovirus GI/GII Detected Comment: If a positive Norovirus result is inconsistent with clinical presentation, the positive Norovirus result should be confirmed using another method. Rotavirus A Not Detected Sapovirus (I, II, IV or V) Not Detected Clostridioides difficile Toxin - Stool, Per Rectum [[id number]] (Abnormal) Collected: 06/26/2545 Lab Status: Final result Specimen: Stool from Per Rectum Updated: 06/26/25754 Narrative: The following orders were created for panel order Clostridioides difficile Toxin - Stool, Per Rectum. Procedure Abnormality Status --------- ------ Clostridioides difficile...[[id number]] Abnormal Final result Please view results for these tests on the individual orders. Clostridioides difficile Toxin, PCR - Stool, Per Rectum [[id number]] (Abnormal) Collected: 06/26/2545 Lab Status: Final result Specimen: Stool from Per Rectum Updated: 06/26/25754 Toxigenic C. difficile by PCR Detected Narrative: DNA from a toxigenic strain of C.difficile has been detected. No radiology results from the last 24 hrs Results for orders placed during the hospital encounter of 08/31/24 Adult Transthoracic Echo Complete W/ Cont if Necessary Per Protocol 09/12/2024 4:10 PM Interpretation Summary ??? Left ventricular systolic function is normal. Calculated left ventricular EF = 52.5% ??? There is a trivial pericardial effusion. ??? The aortic valve exhibits sclerosis. ??? Mitral annular calcification is present. I have personally reviewed the therapy plans: [] PT/OT/ ST Therapy Plans Current medications: Scheduled Meds:[Held by provider] apixaban, 5 mg, Oral, BID [Transfer Hold] vitamin C, 500 mg, Oral, Daily [Transfer Hold] baclofen, 10 mg, Oral, Q12H carvedilol, 3.125 mg, Oral, BID With Meals [Transfer Hold] clopidogrel, 75 mg, Oral, Daily famotidine, 20 mg, Oral, BID AC [Transfer Hold] finasteride, 5 mg, Oral, Daily [Transfer Hold] folic acid, 1 mg, Oral, Daily gabapentin, 300 mg, Oral, Q8H [Transfer Hold] heparin (porcine), 5,000 Units, Subcutaneous, Q8H [Transfer Hold] insulin glargine, 56 Units, Subcutaneous, Nightly lamoTRIgine, 100 mg, Oral, Daily lamoTRIgine, 250 mg, Oral, Nightly meropenem, 500 mg, Intravenous, Q6H methenamine, 1 g, Oral, BID With Meals [Transfer Hold] multivitamin with minerals, 1 tablet, Oral, Daily [Transfer Hold] sacubitril-valsartan, 1 tablet, Oral, BID [Transfer Hold] sodium chloride, 10 mL, Intravenous, Q12H [Transfer Hold] sodium chloride, 10 mL, Intravenous, Q12H vancomycin, 1,000 mg, Intravenous, Q12H vancomycin, 125 mg, Oral, 4x Daily Followed by [START ON 07/10/2025] vancomycin, 125 mg, Oral, TID Followed by [START ON 07/17/2025] vancomycin, 125 mg, Oral, BID Followed by [START ON 07/25/2025] vancomycin, 125 mg, Oral, Daily Followed by [START ON 08/01/2025] vancomycin, 125 mg, Oral, Weekly Continuous Infusions:Pharmacy to dose vancomycin, PRN Meds:.??? [Transfer Hold] acetaminophen OR [Transfer Hold] acetaminophen OR [Transfer Hold] acetaminophen ??? [Transfer Hold] aluminum-magnesium hydroxide-simethicone ??? [Transfer Hold] senna-docusate sodium AND [Transfer Hold] polyethylene glycol AND [Transfer Hold] bisacodyl AND [Transfer Hold] bisacodyl ??? [Transfer Hold] Calcium Replacement - Follow Nurse / BPA Driven Protocol ??? [Transfer Hold] influenza vaccine ??? [Transfer Hold] ipratropium-albuterol ??? lactated ringers ??? [Transfer Hold] Magnesium Cardiology Dose Replacement - Follow Nurse / BPA Driven Protocol ??? [DISCONTINUED] Morphine AND [Transfer Hold] naloxone ??? [Transfer Hold] nitroglycerin ??? [Transfer Hold] ondansetron ??? [Transfer Hold] oxyCODONE-acetaminophen ??? Pharmacy to dose vancomycin ??? [Transfer Hold] Phosphorus Replacement - Follow Nurse / BPA Driven Protocol ??? Potassium Replacement - Follow Nurse / BPA Driven Protocol ??? Insert Peripheral IV AND [Transfer Hold] sodium chloride ??? [Transfer Hold] sodium chloride ??? [Transfer Hold] sodium chloride ??? [Transfer Hold] sodium chloride ??? [Transfer Hold] sodium chloride Assessment & Plan Assessment & Plan Active Hospital Problems Diagnosis POA ??? Gastroenteritis due to norovirus [A08.11] Yes ??? Acute UTI (urinary tract infection) [N39.0] Yes ??? Diarrhea of presumed infectious origin [R19.7] Yes ??? Acute on chronic blood loss anemia [D62] Yes ??? BPH without obstruction/lower urinary tract symptoms [N40.0] Yes ??? GERD without esophagitis [K21.9] Yes ??? Bilateral inguinal hernia [K40.20] Yes ??? Cellulitis [L03.90] Yes ??? Type 2 diabetes mellitus, with long-term current use of insulin [E11.9, Z79.4] Not Applicable ??? Wound infection [T14.8XXA, L08.9] Unknown ??? PAD (peripheral artery disease) [I73.9] Yes ??? Coronary artery disease involving [place] coronary artery of [place] heart without angina pectoris [I25.10] Yes ??? Seizure disorder [G40.909] Yes ??? Primary hypertension [I10] Yes Resolved Hospital Problems No resolved problems to display. Brief Hospital Course to date: Trung Pool is a 70 y.o. male with a past medical history of coronary artery disease, peripheral artery disease, type 2 diabetes mellitus (on insulin), right above-knee amputation, and seizure disorder, who was admitted with hematuria, left foot stump drainage, fatigue, and diarrhea. Workup notable for norovirus and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 1 tablet Oral Q6H PRN Kris Boston, DO 1 tablet at 07/02/25 0125 Pharmacy to dose vancomycin Not Applicable Continuous PRN Duglas Andres MD Phosphorus Replacement - Follow Nurse / BPA Driven Protocol Not Applicable PRN Amanda Bermudez MD Potassium Replacement - Follow Nurse / BPA Driven Protocol Not Applicable PRN Amanda Bermudez MD sacubitril-valsartan (ENTRESTO) 24-26 MG tablet 1 tablet 1 tablet Oral BID Amanda Bermudez MD 1 tablet at 07/01/25 2144 sodium chloride 0.9 % flush 10 mL 10 mL Intravenous PRN Ally Jeffers V, DIABETES NURSE sodium chloride 0.9 % flush 10 mL 10 mL Intravenous Q12H Amanda Bermudez MD 10 mL at 07/01/25 0832 sodium chloride 0.9 % flush 10 mL 10 mL Intravenous PRN Amanda Bermudez MD sodium chloride 0.9 % flush 10 mL 10 mL Intravenous Q12H Duglas Andres MD 10 mL at 07/01/25 2145 sodium chloride 0.9 % flush 10 mL 10 mL Intravenous PRN Duglas Andres MD sodium chloride 0.9 % flush 20 mL 20 mL Intravenous PRN Duglas Andres MD sodium chloride 0.9 % infusion 40 mL 40 mL Intravenous PRN Duglas Andres MD vancomycin (VANCOCIN) 1,000 mg in sodium chloride 0.9 % 250 mL IVPB-VTB 1,000 mg Intravenous Q12H Osmany Mccann H, RPH 250 mL/hr at 07/01/252142 1,000 mg at 07/01/25 214 vancomycin (VANCOCIN) capsule 125 mg 125 mg Oral 4x Daily Duglas Andres MD 125 mg at Followed by [START ON 07/10/2025] vancomycin (VANCOCIN) capsule 125 mg 125 mg Oral TID Duglas Andres MD Followed by [START ON 07/17/2025] vancomycin (VANCOCIN) capsule 125 mg 125 mg Oral BID Duglas Andres MD Followed by [START ON 07/25/2025] vancomycin (VANCOCIN) capsule 125 mg 125 mg Oral Daily Duglas Andres MD Followed by [START ON 08/01/2025] vancomycin (VANCOCIN) capsule 125 mg 125 mg Oral Weekly Duglas Andres MD * Kris Boston, DO - 07/02/2025 1:55 PM EDT Images from the original note were not included. [facility] Medicine Services PROGRESS NOTE Patient Name: Trung Pool : [id number] Date of Admission: 06/25/2025 Primary Care Physician: Gustavo Mehta MD Subjective Subjective CC: LLE wound HPI: Patient seen sitting in bed in NAD. Reports improvement in pain following adjustments to pain medications yesterday. Eager for vascular procedure. Objective Objective Vital Signs: Temp: [97.3 ??F (36.3 ??C)-97.6 ??F (36.4 ??C)] 97.5 ??F (36.4 ??C) Heart Rate: [58-91] 67 Resp: [16-22] 16 BP: (134-172)/(62-98) 136/70 Physical Exam Cardiovascular: Rate and Rhythm: Normal rate. Pulses: Normal pulses. Pulmonary: Effort: Pulmonary effort is normal. No respiratory distress. Abdominal: General: There is no distension. Palpations: Abdomen is soft. Tenderness: There is no abdominal tenderness. There is no guarding or rebound. Musculoskeletal: Right lower leg: No edema. Left lower leg: No edema. Comments: LLE wrapped, Right BKA Skin: General: Skin is warm. Neurological: Mental Status: He is alert. Psychiatric: Mood and Affect: Mood normal. Behavior: Behavior normal. Results Reviewed: LAB RESULTS: Lab 07/02/25 0359 06/30/25 0429 06/29/25 0623 06/27/25 0400 06/26/25 0741 06/26/25 0740 06/25/25 1817 WBC 7.10 5.48 7.30 9.98 -- 9.69 9.96 HEMOGLOBIN 9.8* 9.2* 9.0* 9.4* -- 8.8* 8.9* HEMATOCRIT 32.8* 31.6* 29.2* 30.4* -- 29.3* 29.8* PLATELETS 296 259 289 274 -- 271 281 NEUTROS ABS -- 3.05 4.71 6.79 -- 6.58 7.05* IMMATURE GRANS (ABS) -- 0.02 0.03 0.04 -- 0.04 0.05 LYMPHS ABS -- 1.32 1.44 1.79 -- 1.77 1.48 MONOS ABS -- 0.64 0.64 0.83 -- 0.80 1.01* EOS ABS -- 0.40 0.42* 0.47* -- 0.43* 0.32 MCV 79.0 80.0 75.5* 77.4* -- 77.5* 76.2* CRP -- -- -- -- -- -- 4.34* PROCALCITONIN -- -- -- -- -- -- 0.12 LACTATE -- -- -- -- 1.2 -- 1.7 PROTIME -- -- -- -- 16.7* -- -- Lab 07/02/25 0359 07/01/25 0329 06/30/25 0429 06/29/25 0624 06/28/25 0400 06/27/25 0400 06/26/25 0741 SODIUM 136 135* 138 138 140 139 142 POTASSIUM 5.1 4.7 4.7 4.5 4.6 4.3 3.7 CHLORIDE 104 104 107 106 111* 109* 112* CO2 21.2* 21.3* 20.8* 21.9* 21.7* 20.3* 21.4* ANION GAP 10.8 9.7 10.2 10.1 7.3 9.7 8.6 BUN 16.9 13.7 12.3 11.4 11.0 15.3 19.1 CREATININE 0.93 0.93 0.89 0.89 0.79 0.92 0.88 EGFR 87.8 87.8 91.6 91.6 95.0 88.9 91.9 GLUCOSE 124* 70 164* 175* 125* 91 134* CALCIUM 8.6 8.7 8.4* 8.5* 8.2* 8.1* 8.3* MAGNESIUM -- -- -- -- -- 2.2 1.8 PHOSPHORUS -- -- -- -- -- -- 2.9 HEMOGLOBIN A1C -- -- -- -- -- -- 7.82* TSH -- -- -- -- -- -- 0.340 Lab 06/26/25 0741 06/25/25 1817 TOTAL PROTEIN 7.1 7.2 ALBUMIN 3.0* 3.2* GLOBULIN 4.1 4.0 ALT (SGPT) 13 14 AST (SGOT) 15 15 BILIRUBIN 0.2 0.2 ALK PHOS 116 127* Lab 06/26/2541 PROTIME 16.7* INR 1.27* Lab 06/26/2541 CHOLESTEROL 154 LDL CHOL 103* HDL CHOL 27* TRIGLYCERIDES 131 Lab 06/26/25 0741 IRON 14* IRON SATURATION (TSAT) 5* TIBC 256* TRANSFERRIN 172* FERRITIN 108.00 VITAMIN B 12 922 ABO TYPING B RH TYPING Positive ANTIBODY SCREEN Negative Brief Urine Lab Results (Last result in the past 365 days) Color Clarity Blood Leuk Est Nitrite Protein CREAT Urine HCG 06/25/252000 Yellow Turbid Large (3+) Large (3+) Positive Trace Microbiology Results Abnormal Procedure Component Value - Date/Time Urine Culture - Urine, Indwelling Urethral Catheter [[id number]] (Abnormal) (Susceptibility) Collected: 06/25/252000 Lab Status: Final result Specimen: Urine from Indwelling Urethral Catheter Updated: 06/30/25 1001 Urine Culture >100,000 CFU/mL Proteus mirabilis Narrative: Colonization of the urinary tract without infection is common. Treatment is discouraged unless the patient is symptomatic, , or undergoing an invasive urologic procedure. Susceptibility Proteus mirabilis MURRAY Amoxicillin + Clavulanate Susceptible Ampicillin Resistant Ampicillin + Sulbactam Intermediate Cefazolin (Urine) Resistant Cefepime Resistant Ceftazidime Susceptible Ceftriaxone Resistant Cefuroxime axetil Resistant Ciprofloxacin Resistant Gentamicin Susceptible Levofloxacin Resistant Nitrofurantoin Resistant Piperacillin + Tazobactam Susceptible Trimethoprim + Sulfamethoxazole Resistant Blood Culture - Blood, Hand, Right [[id number]] (Abnormal) (Susceptibility) Collected: 06/25/252029 Lab Status: Edited Result - FINAL Specimen: Blood from Hand, Right Updated: 06/29/25 07 Blood Culture Enterococcus faecium Comment: Infectious disease consultation is highly recommended. Isolated from Anaerobic Bottle Gram Stain Anaerobic Bottle Gram positive cocci in chains Narrative: Less than seven (7) mL's of blood was collected. Insufficient quantity may yield false negative results. requested linezolid & daptomycin 06/28/25 Susceptibility Enterococcus faecium MURRAY Method Not Specified Ampicillin Susceptible Daptomycin Susceptible dose dependent Gentamicin High Level Synergy Susceptible Linezolid Susceptible (C) [1] Vancomycin Susceptible [1] Appended report. These results have been appended to a previously final verified report. Wound Culture - Swab, Foot, Left [[id number]] (Abnormal) (Susceptibility) Collected: 06/25/258 Lab Status: Final result Specimen: Swab from Foot, Left Updated: 06/29/25 06 Wound Culture Heavy growth (4+) Staphylococcus aureus, MRSA Comment: Methicillin resistant Staphylococcus aureus, Patient may be an isolation risk. Moderate growth (3+) Morganella morganii ssp morganii Moderate growth (3+) Proteus mirabilis ESBL Comment: Consider infectious disease consult. Susceptibility results may not correlate to clinical outcomes. Gram Stain Few (2+) WBCs seen Few (2+) Gram positive cocci in pairs, chains and clusters Few (2+) Gram negative bacilli Susceptibility Staphylococcus aureus, MRSA MURRAY Clindamycin Susceptible Erythromycin Resistant Oxacillin Resistant Rifampin Susceptible Tetracycline Susceptible Trimethoprim + Sulfamethoxazole Resistant Vancomycin Susceptible Susceptibility Morganella morganii ssp morganii MURRAY Method Not Specified Amoxicillin + Clavulanate Resistant Ampicillin Resistant Ampicillin + Sulbactam Resistant Cefazolin (Non Urine) Resistant Cefepime Susceptible Cefotaxime Susceptible Ceftazidime Susceptible Cefuroxime axetil Resistant Ciprofloxacin Resistant Gentamicin Susceptible Levofloxacin Resistant Piperacillin + Tazobactam Susceptible Tetracycline Susceptible Trimethoprim + Sulfamethoxazole Resistant Susceptibility Proteus mirabilis ESBL MURRAY Ciprofloxacin Resistant Ertapenem Susceptible Levofloxacin Resistant Meropenem Susceptible Tetracycline Resistant Trimethoprim + Sulfamethoxazole Resistant Susceptibility Comments Morganella morganii ssp morganii Cefotaxime susceptibility can be used as a surrogate for ceftriaxone susceptibility Proteus mirabilis ESBL With the exception of urinary-sourced infections, aminoglycosides should not be used as monotherapy. Blood Culture ID, PCR - Blood, Hand, Right [[id number]] (Abnormal) Collected: 06/25/25 2030 Lab Status: Final result Specimen: Blood from Hand, Right Updated: 06/26/252101 BCID, PCR Enterococcus faecium. Zee/B (vancomycin resistance gene) not detected. Identification byBCID2 PCR. BOTTLE TYPE Anaerobic Bottle Narrative: Infectious disease consultation is highly recommended to rule out distant foci of infection. MRSA Screen, PCR (Inpatient) - Swab, Nares [[id number]] (Abnormal) Collected: 06/26/2545 Lab Status: Final result Specimen: Swab from Nares Updated: 06/26/2550 MRSA PCR Positive Narrative: The negative predictive value of this diagnostic test is high and should only be used to consider de-escalating anti-MRSA therapy. A positive result may indicate colonization with MRSA and must be correlated clinically. Gastrointestinal Panel, PCR - Stool, Per Rectum [[id number]] (Abnormal) Collected: 06/26/2545 Lab Status: Final result Specimen: Stool from Per Rectum Updated: 06/26/2550 Campylobacter Not Detected Plesiomonas shigelloides Not Detected Salmonella Not Detected Vibrio Not Detected Vibrio cholerae Not Detected Yersinia enterocolitica Not Detected Enteroaggregative E. coli (EAEC) Not Detected Enteropathogenic E. coli (EPEC) Not Detected Enterotoxigenic E. coli (ETEC) lt/st Not Detected Shiga-like toxin-producing E. coli (STEC) stx1/stx2 Not Detected Shigella/Enteroinvasive E. coli (EIEC) Not Detected Cryptosporidium Not Detected Cyclospora cayetanensis Not Detected Entamoeba histolytica Not Detected Giardia lamblia Not Detected Adenovirus F40/41 Not Detected Astrovirus Not Detected Norovirus GI/GII Detected Comment: If a positive Norovirus result is inconsistent with clinical presentation, the positive Norovirus result should be confirmed using another method. Rotavirus A Not Detected Sapovirus (I, II, IV or V) Not Detected Clostridioides difficile Toxin - Stool, Per Rectum [[id number]] (Abnormal) Collected: 06/26/2545 Lab Status: Final result Specimen: Stool from Per Rectum Updated: 06/26/25 0478 Narrative: The following orders were created for panel order Clostridioides difficile Toxin - Stool, Per Rectum. Procedure Abnormality Status --------- ------ Clostridioides difficile...[[id number]] Abnormal Final result Please view results for these tests on the individual orders. Clostridioides difficile Toxin, PCR - Stool, Per Rectum [[id number]] (Abnormal) Collected: 06/26/25 0046 Lab Status: Final result Specimen: Stool from Per Rectum Updated: 06/26/25 0755 Toxigenic C. difficile by PCR Detected Narrative: DNA from a toxigenic strain of C.difficile has been detected. Microbiology Results Abnormal Procedure Component Value - Date/Time Urine Culture - Urine, Indwelling Urethral Catheter [[id number]] (Abnormal) (Susceptibility) Collected: 06/25/252000 Lab Status: Final result Specimen: Urine from Indwelling Urethral Catheter Updated: 06/30/25 1001 Urine Culture >100,000 CFU/mL Proteus mirabilis Narrative: Colonization of the urinary tract without infection is common. Treatment is discouraged unless the patient is symptomatic, , or undergoing an invasive urologic procedure. Susceptibility Proteus mirabilis MURRAY Amoxicillin + Clavulanate Susceptible Ampicillin Resistant Ampicillin + Sulbactam Intermediate Cefazolin (Urine) Resistant Cefepime Resistant Ceftazidime Susceptible Ceftriaxone Resistant Cefuroxime axetil Resistant Ciprofloxacin Resistant Gentamicin Susceptible Levofloxacin Resistant Nitrofurantoin Resistant Piperacillin + Tazobactam Susceptible Trimethoprim + Sulfamethoxazole Resistant Blood Culture - Blood, Hand, Right [[id number]] (Abnormal) (Susceptibility) Collected: 06/25/252029 Lab Status: Edited Result - FINAL Specimen: Blood from Hand, Right Updated: 06/29/25 0713 Blood Culture Enterococcus faecium Comment: Infectious disease consultation is highly recommended. Isolated from Anaerobic Bottle Gram Stain Anaerobic Bottle Gram positive cocci in chains Narrative: Less than seven (7) mL's of blood was collected. Insufficient quantity may yield false negative results. requested linezolid & daptomycin 06/28/25 Susceptibility Enterococcus faecium MURRAY Method Not Specified Ampicillin Susceptible Daptomycin Susceptible dose dependent Gentamicin High Level Synergy Susceptible Linezolid Susceptible (C) [1] Vancomycin Susceptible [1] Appended report. These results have been appended to a previously final verified report. Wound Culture - Swab, Foot, Left [[id number]] (Abnormal) (Susceptibility) Collected: 06/25/25 181 Lab Status: Final result Specimen: Swab from Foot, Left Updated: 06/29/25 0645 Wound Culture Heavy growth (4+) Staphylococcus aureus, MRSA Comment: Methicillin resistant Staphylococcus aureus, Patient may be an isolation risk. Moderate growth (3+) Morganella morganii ssp morganii Moderate growth (3+) Proteus mirabilis ESBL Comment: Consider infectious disease consult. Susceptibility results may not correlate to clinical outcomes. Gram Stain Few (2+) WBCs seen Few (2+) Gram positive cocci in pairs, chains and clusters Few (2+) Gram negative bacilli Susceptibility Staphylococcus aureus, MRSA MURRAY Clindamycin Susceptible Erythromycin Resistant Oxacillin Resistant Rifampin Susceptible Tetracycline Susceptible Trimethoprim + Sulfamethoxazole Resistant Vancomycin Susceptible Susceptibility Morganella morganii ssp morganii MURRAY Method Not Specified Amoxicillin + Clavulanate Resistant Ampicillin Resistant Ampicillin + Sulbactam Resistant Cefazolin (Non Urine) Resistant Cefepime Susceptible Cefotaxime Susceptible Ceftazidime Susceptible Cefuroxime axetil Resistant Ciprofloxacin Resistant Gentamicin Susceptible Levofloxacin Resistant Piperacillin + Tazobactam Susceptible Tetracycline Susceptible Trimethoprim + Sulfamethoxazole Resistant Susceptibility Proteus mirabilis ESBL MURRAY Ciprofloxacin Resistant Ertapenem Susceptible Levofloxacin Resistant Meropenem Susceptible Tetracycline Resistant Trimethoprim + Sulfamethoxazole Resistant Susceptibility Comments Morganella morganii ssp morganii Cefotaxime susceptibility can be used as a surrogate for ceftriaxone susceptibility Proteus mirabilis ESBL With the exception of urinary-sourced infections, aminoglycosides should not be used as monotherapy. Blood Culture ID, PCR - Blood, Hand, Right [[id number]] (Abnormal) Collected: 06/25/252029 Lab Status: Final result Specimen: Blood from Hand, Right Updated: 06/26/252101 BCID, PCR Enterococcus faecium. Zee/B (vancomycin resistance gene) not detected. Identification byBCID2 PCR. BOTTLE TYPE Anaerobic Bottle Narrative: Infectious disease consultation is highly recommended to rule out distant foci of infection. MRSA Screen, PCR (Inpatient) - Swab, Nares [[id number]] (Abnormal) Collected: 06/26/2545 Lab Status: Final result Specimen: Swab from Nares Updated: 06/26/25 0850 MRSA PCR Positive Narrative: The negative predictive value of this diagnostic test is high and should only be used to consider de-escalating anti-MRSA therapy. A positive result may indicate colonization with MRSA and must be correlated clinically. Gastrointestinal Panel, PCR - Stool, Per Rectum [[id number]] (Abnormal) Collected: 06/26/2545 Lab Status: Final result Specimen: Stool from Per Rectum Updated: 06/26/25 0850 Campylobacter Not Detected Plesiomonas shigelloides Not Detected Salmonella Not Detected Vibrio Not Detected Vibrio cholerae Not Detected Yersinia enterocolitica Not Detected Enteroaggregative E. coli (EAEC) Not Detected Enteropathogenic E. coli (EPEC) Not Detected Enterotoxigenic E. coli (ETEC) lt/st Not Detected Shiga-like toxin-producing E. coli (STEC) stx1/stx2 Not Detected Shigella/Enteroinvasive E. coli (EIEC) Not Detected Cryptosporidium Not Detected Cyclospora cayetanensis Not Detected Entamoeba histolytica Not Detected Giardia lamblia Not Detected Adenovirus F40/41 Not Detected Astrovirus Not Detected Norovirus GI/GII Detected Comment: If a positive Norovirus result is inconsistent with clinical presentation, the positive Norovirus result should be confirmed using another method. Rotavirus A Not Detected Sapovirus (I, II, IV or V) Not Detected Clostridioides difficile Toxin - Stool, Per Rectum [[id number]] (Abnormal) Collected: 06/26/2545 Lab Status: Final result Specimen: Stool from Per Rectum Updated: 06/26/25 075 Narrative: The following orders were created for panel order Clostridioides difficile Toxin - Stool, Per Rectum. Procedure Abnormality Status --------- ------ Clostridioides difficile...[[id number]] Abnormal Final result Please view results for these tests on the individual orders. Clostridioides difficile Toxin, PCR - Stool, Per Rectum [[id number]] (Abnormal) Collected: 06/26/2545 Lab Status: Final result Specimen: Stool from Per Rectum Updated: 06/26/25754 Toxigenic C. difficile by PCR Detected Narrative: DNA from a toxigenic strain of C.difficile has been detected. Microbiology Results Abnormal Procedure Component Value - Date/Time Urine Culture - Urine, Indwelling Urethral Catheter [[id number]] (Abnormal) (Susceptibility) Collected: 06/25/252000 Lab Status: Final result Specimen: Urine from Indwelling Urethral Catheter Updated: 06/30/25 1001 Urine Culture >100,000 CFU/mL Proteus mirabilis Narrative: Colonization of the urinary tract without infection is common. Treatment is discouraged unless the patient is symptomatic, , or undergoing an invasive urologic procedure. Susceptibility Proteus mirabilis MURRAY Amoxicillin + Clavulanate Susceptible Ampicillin Resistant Ampicillin + Sulbactam Intermediate Cefazolin (Urine) Resistant Cefepime Resistant Ceftazidime Susceptible Ceftriaxone Resistant Cefuroxime axetil Resistant Ciprofloxacin Resistant Gentamicin Susceptible Levofloxacin Resistant Nitrofurantoin Resistant Piperacillin + Tazobactam Susceptible Trimethoprim + Sulfamethoxazole Resistant Blood Culture - Blood, Hand, Right [[id number]] (Abnormal) (Susceptibility) Collected: 06/25/252029 Lab Status: Edited Result - FINAL Specimen: Blood from Hand, Right Updated: 06/29/25 0713 Blood Culture Enterococcus faecium Comment: Infectious disease consultation is highly recommended. Isolated from Anaerobic Bottle Gram Stain Anaerobic Bottle Gram positive cocci in chains Narrative: Less than seven (7) mL's of blood was collected. Insufficient quantity may yield false negative results. requested linezolid & daptomycin 06/28/25 Susceptibility Enterococcus faecium MURRAY Method Not Specified Ampicillin Susceptible Daptomycin Susceptible dose dependent Gentamicin High Level Synergy Susceptible Linezolid Susceptible (C) [1] Vancomycin Susceptible [1] Appended report. These results have been appended to a previously final verified report. Wound Culture - Swab, Foot, Left [[id number]] (Abnormal) (Susceptibility) Collected: 06/25/251817 Lab Status: Final result Specimen: Swab from Foot, Left Updated: 06/29/25 0645 Wound Culture Heavy growth (4+) Staphylococcus aureus, MRSA Comment: Methicillin resistant Staphylococcus aureus, Patient may be an isolation risk. Moderate growth (3+) Morganella morganii ssp morganii Moderate growth (3+) Proteus mirabilis ESBL Comment: Consider infectious disease consult. Susceptibility results may not correlate to clinical outcomes. Gram Stain Few (2+) WBCs seen Few (2+) Gram positive cocci in pairs, chains and clusters Few (2+) Gram negative bacilli Susceptibility Staphylococcus aureus, MRSA MURRAY Clindamycin Susceptible Erythromycin Resistant Oxacillin Resistant Rifampin Susceptible Tetracycline Susceptible Trimethoprim + Sulfamethoxazole Resistant Vancomycin Susceptible Susceptibility Morganella morganii ssp morganii MURRAY Method Not Specified Amoxicillin + Clavulanate Resistant Ampicillin Resistant Ampicillin + Sulbactam Resistant Cefazolin (Non Urine) Resistant Cefepime Susceptible Cefotaxime Susceptible Ceftazidime Susceptible Cefuroxime axetil Resistant Ciprofloxacin Resistant Gentamicin Susceptible Levofloxacin Resistant Piperacillin + Tazobactam Susceptible Tetracycline Susceptible Trimethoprim + Sulfamethoxazole Resistant Susceptibility Proteus mirabilis ESBL MURRAY Ciprofloxacin Resistant Ertapenem Susceptible Levofloxacin Resistant Meropenem Susceptible Tetracycline Resistant Trimethoprim + Sulfamethoxazole Resistant Susceptibility Comments Morganella morganii ssp morganii Cefotaxime susceptibility can be used as a surrogate for ceftriaxone susceptibility Proteus mirabilis ESBL With the exception of urinary-sourced infections, aminoglycosides should not be used as monotherapy. Blood Culture ID, PCR - Blood, Hand, Right [[id number]] (Abnormal) Collected: 06/25/252029 Lab Status: Final result Specimen: Blood from Hand, Right Updated: 06/26/252101 BCID, PCR Enterococcus faecium. Zee/B (vancomycin resistance gene) not detected. Identification byBCID2 PCR. BOTTLE TYPE Anaerobic Bottle Narrative: Infectious disease consultation is highly recommended to rule out distant foci of infection. MRSA Screen, PCR (Inpatient) - Swab, Nares [[id number]] (Abnormal) Collected: 06/26/2545 Lab Status: Final result Specimen: Swab from Nares Updated: 06/26/25 0850 MRSA PCR Positive Narrative: The negative predictive value of this diagnostic test is high and should only be used to consider de-escalating anti-MRSA therapy. A positive result may indicate colonization with MRSA and must be correlated clinically. Gastrointestinal Panel, PCR - Stool, Per Rectum [[id number]] (Abnormal) Collected: 06/26/2545 Lab Status: Final result Specimen: Stool from Per Rectum Updated: 06/26/2550 Campylobacter Not Detected Plesiomonas shigelloides Not Detected Salmonella Not Detected Vibrio Not Detected Vibrio cholerae Not Detected Yersinia enterocolitica Not Detected Enteroaggregative E. coli (EAEC) Not Detected Enteropathogenic E. coli (EPEC) Not Detected Enterotoxigenic E. coli (ETEC) lt/st Not Detected Shiga-like toxin-producing E. coli (STEC) stx1/stx2 Not Detected Shigella/Enteroinvasive E. coli (EIEC) Not Detected Cryptosporidium Not Detected Cyclospora cayetanensis Not Detected Entamoeba histolytica Not Detected Giardia lamblia Not Detected Adenovirus F40/41 Not Detected Astrovirus Not Detected Norovirus GI/GII Detected Comment: If a positive Norovirus result is inconsistent with clinical presentation, the positive Norovirus result should be confirmed using another method. Rotavirus A Not Detected Sapovirus (I, II, IV or V) Not Detected Clostridioides difficile Toxin - Stool, Per Rectum [[id number]] (Abnormal) Collected: 06/26/2545 Lab Status: Final result Specimen: Stool from Per Rectum Updated: 06/26/25 075 Narrative: The following orders were created for panel order Clostridioides difficile Toxin - Stool, Per Rectum. Procedure Abnormality Status --------- ------ Clostridioides difficile...[[id number]] Abnormal Final result Please view results for these tests on the individual orders. Clostridioides difficile Toxin, PCR - Stool, Per Rectum [[id number]] (Abnormal) Collected: 06/26/2545 Lab Status: Final result Specimen: Stool from Per Rectum Updated: 06/26/25754 Toxigenic C. difficile by PCR Detected Narrative: DNA from a toxigenic strain of C.difficile has been detected. Microbiology Results Abnormal Procedure Component Value - Date/Time Urine Culture - Urine, Indwelling Urethral Catheter [[id number]] (Abnormal) (Susceptibility) Collected: 06/25/252000 Lab Status: Final result Specimen: Urine from Indwelling Urethral Catheter Updated: 06/30/25 1001 Urine Culture >100,000 CFU/mL Proteus mirabilis Narrative: Colonization of the urinary tract without infection is common. Treatment is discouraged unless the patient is symptomatic, , or undergoing an invasive urologic procedure. Susceptibility Proteus mirabilis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 fevers chills or sweats. No headache photophobia or neck stiffness. No shortness of breath coughor hemoptysis. no flank pain. Past Medical History: Diagnosis Date Anemia Cellulitis [...] VAC; Surgeon: Cecil Buenrostro Jr., MD; Location: [facility]; Service: Orthopedics; Laterality: Left; INTERVENTIONAL RADIOLOGY PROCEDURE N/A 05/02/2019 Procedure: IVC FILTER PLACEMENT; Surgeon: Pedro Zapien MD; Location: [facility]VASIVE LOCATION; Service: Interventional Radiology INTERVENTIONAL RADIOLOGY PROCEDURE Left 09/07/2024 Procedure: LEFT peroneal arteriovenous fistula embolization - Right femoral access; Surgeon: Jared Marcano MD; Location: [facility] CATH INVASIVE LOCATION; Service: Cardiovascular; Laterality: Left; Please coordinate with Gautam Patel ([facility]) [phone] who will bring coils LUMBAR DISCECTOMY N/A 05/03/2019 Procedure: THORACIC LAMINECTOMY T11-12; Surgeon: Tyree Tan MD; Location: [facility]; Service: Neurosurgery Pediatric History Patient Parents Not on file Other Topics Concern Not on file Social History Narrative Not on file family history includes Alcohol abuse in his father. Allergies[1] Medication: Current Medications[2] Antibiotics: Anti-Infectives (From admission, onward) Ordered Dose/Rate Route Frequency Start Stop 06/26/25 0831 vancomycin (VANCOCIN) capsule 125 mg Ordering Provider: Duglas Andres MD Placed in Followed by Linked Group 125 mg Oral Weekly 08/01/25 0900 09/19/25 0859 06/26/25 0831 vancomycin (VANCOCIN) capsule 125 mg Ordering Provider: Duglas Andres MD Placed in Followed by Linked Group 125 mg Oral Daily 07/25/25 0900 08/01/25 0859 06/26/25 0831 vancomycin (VANCOCIN) capsule 125 mg Ordering Provider: Duglas Andres MD Placed in Followed by Linked Group 125 mg Oral 2 Times Daily 07/17/25 2100 07/24/25 2059 06/26/25 0831 vancomycin (VANCOCIN) capsule 125 mg Ordering Provider: Duglas Andres MD Placed in Followed by Linked Group 125 mg Oral 3 Times Daily 07/10/25 1600 07/17/25 1559 06/28/25 0724 vancomycin (VANCOCIN) 1,000 mg in sodium chloride 0.9 % 250 mL IVPB-VTB Ordering Provider: Osmany Mccann RPH 1,000 mg 250 mL/hr over 60 Minutes Intravenous Every 12 Hours 06/28/25 0900 07/04/25 2059 06/27/25 0812 Vancomycin HCl 1,250 mg in sodium chloride 0.9 % 250 mL VTB Status: Discontinued Ordering Provider: Osmany Mccann RPH 1,250 mg 200 mL/hr over 75 Minutes Intravenous Every 12 Hours 06/27/25 2100 06/27/25 0813 06/27/25 0813 Vancomycin HCl 1,250 mg in sodium chloride 0.9 % 250 mL VTB Status: Discontinued Ordering Provider: Osmany Mccann RPH 1,250 mg 200 mL/hr over 75 Minutes Intravenous Every 12 Hours 06/27/25 2100 06/28/25 0724 06/27/25 0856 vancomycin 2500 mg/500 mL 0.9% NS IVPB ([facility]) Ordering Provider: Osmany Mccann RPH 2,500 mg over 150 Minutes Intravenous Once 06/27/25 0945 06/27/25 1150 06/27/25 0808 vancomycin 2250 mg/500 mL 0.9% NS IVPB ([facility]) Status: Discontinued Ordering Provider: Osmany Mccann RPH 2,250 mg over 135 Minutes Intravenous Once 06/27/25 0900 06/27/25 0856 06/27/25 0739 Pharmacy to dose vancomycin Ordering Provider: Duglas Andres MD Not Applicable Continuous PRN 06/27/25 0739 07/04/25 0738 06/25/25 2312 DAPTOmycin (CUBICIN) 550 mg in sodium chloride 0.9 % 50 mL IVPB Status: Discontinued Ordering Provider: Amanda Bermudez MD 6 mg/kg ?? 94.6 kg (Adjusted) 100 mL/hr over 30 Minutes Intravenous Every 24 Hours 06/26/25 2100 06/27/25 0739 06/26/25 0847 meropenem (MERREM) 500 mg in sodium chloride 0.9 % 100 mL MBP Ordering Provider: Duglas Andres MD 500 mg over 3 Hours Intravenous Every 6 Hours 06/26/25 1600 07/06/25 1559 06/25/25 2303 piperacillin-tazobactam (ZOSYN) 4.5 g IVPB in 100 mL NS MBP (CD) Status: Discontinued Ordering Provider: Amanda Bermudez MD 4.5 g over 4 Hours Intravenous Every 8 Hours 06/26/25 1200 06/26/25 0846 06/26/25 0831 vancomycin (VANCOCIN) capsule 125 mg Ordering Provider: Duglas Andres MD Placed in [facility] 125 mg Oral 4 Times Daily 06/26/25 1200 07/10/25 1159 06/26/25 0847 meropenem (MERREM) 500 mg in sodium chloride 0.9 % 100 mL MBP Ordering Provider: Duglas Andres MD 500 mg over 30 Minutes Intravenous Once 06/26/25 0945 06/26/25 1047 06/26/25 0833 micafungin sodium (MYCAMINE) 100 mg in sodium chloride 0.9 % 100 mL MBP Ordering Provider: Duglas Andres MD 100 mg Intravenous Once 06/26/25 0930 06/26/25 0850 06/26/25 0113 methenamine (HIPREX) tablet 1 g Ordering Provider: Amanda Bermudez MD 1 g Oral 2 Times Daily With Meals 06/26/25 0800 06/25/25 2303 piperacillin-tazobactam (ZOSYN) 3.375 g IVPB in 100 mL NS MBP (CD) Status: Discontinued Ordering Provider: Amanda Bermudez MD 3.375 g over 30 Minutes Intravenous Once 06/26/25 0600 06/25/25 2312 06/25/25 2312 piperacillin-tazobactam (ZOSYN) 4.5 g IVPB in 100 mL NS MBP (CD) Ordering Provider: Amanda Bermudez MD 4.5 g over 30 Minutes Intravenous Once 06/26/25 0600 06/26/2559906/25/252111 DAPTOmycin (CUBICIN) 550 mg in sodium chloride 0.9 % 50 mL IVPB Ordering Provider: Ally Jeffers APRN 6 mg/kg ?? 94.6 kg (Adjusted) 100 mL/hr over 30 Minutes Intravenous Once 06/25/25212706/25/25230606/25/252111 meropenem (MERREM) 1,000 mg in sodium chloride 0.9 % 100 mL MBP Ordering Provider: Ally Jeffers V DIABETES NURSE 1,000 mg over 30 Minutes Intravenous Once 06/25/25212706/25/252236 Review of Systems 07/02/25 Constitutional-- No Fever, chills or sweats. Appetite good, and no malaise. No fatigue. Heent-- No new vision, hearing or throat complaints. No epistaxis or oral sores. Denies odynophagiaor dysphagia. No flashers, floaters or eye pain. No odynophagia or dysphagia. No headache, photophobia or neck stiffness. CV-- No chest pain, palpitation or syncope Resp-- No SOB/cough/Hemoptysis GI- No hematochezia, melena, or hematemesis. Denies jaundice or chronic liver disease. -- chronic De Los Santos catheter, denies flank pain Lymph- no swollen lymph nodes in neck/axilla or groin. Heme- No active bruising or bleeding; no Hx of DVT or PE. MS-- no swelling or pain in the bones or joints of arms/legs. No new back pain. Neuro-- No acute focal weakness or numbness in the arms or legs. Chronically debilitated Full 12 point review of systems reviewed and negative otherwise for acute complaints, except for above Physical Exam: Vital Signs BP 134/73 (BP Location: Left arm, Patient Position: Sitting) Pulse 68 Temp 97.3 ??F (36.3 ??C) (Oral) Resp 18 Ht 182.9 cm (72 ) Wt 118 kg (259 lb 11.2 oz) SpO2 95% BMI 35.22 kg/m?? GENERAL: sleepy, in no acute distress. Chronically ill HEENT: Normocephalic, atraumatic. No conjunctival injection. No [...] or HSM. EXT: see below : With De [place] Santos catheter. MSK: FROM without joint effusions noted arms/legs. SKIN: Warm and dry without cutaneous eruptions on Inspection/palpation. NEURO: sleepy Left foot amputation noted with wounds and adherent slough type material but unable to express any purulence and depth unclear. No probed to bone at present. Vague erythema from mid burrell to foot withsome white scale but no discrete mass bulge or fluctuance. No crepitus or bulla Right side amputation no obvious open wound or new redness/induration Laboratory Data Results from last 7 days Lab Units 07/02/25 0359 06/30/25 0429 06/29/25 0623 WBC 10*3/mm3 7.10 5.48 7.30 HEMOGLOBIN g/dL 9.8* 9.2* 9.0* HEMATOCRIT % 32.8* 31.6* 29.2* PLATELETS 10*3/mm3 296 259 289 Results from last 7 days Lab Units 07/02/25 0359 SODIUM mmol/L 136 POTASSIUM mmol/L 5.1 CHLORIDE mmol/L 104 CO2 mmol/L 21.2* BUN mg/dL 16.9 CREATININE mg/dL 0.93 GLUCOSE mg/dL 124* CALCIUM mg/dL 8.6 Results from last 7 days Lab Units 06/26/25 0741 ALK PHOS U/L 116 BILIRUBIN mg/dL 0.2 ALT (SGPT) U/L 13 AST (SGOT) U/L 15 Results from last 7 days Lab Units 06/25/25 1817 CRP mg/dL 4.34* Estimated Creatinine Clearance: 96.7 mL/min (by C-G formula based on SCr of 0.93 mg/dL). Microbiology: Radiology: Imaging Results (Last 72 Hours) No results found for the last 72 hours. Impression: --acute left lower leg/foot cellulitis and wound infection, prior culture July 2024 with ESBL Klebsiella pneumoniae and pseudomonas aeruginosa, pseudomonas was sensitive to Merrem per microbiology lab at [facility]. Cx at [facility] as below; He has had multiple surgeries and multiple p ractitioners recommend higher level amputation which he has refused. On prior admissions, he has refused outpatient IV antibiotics and he has refused placement for longer durations of IV antibiotics.This refusal of care has placed him at increased risk for poor outcome. Earlier in 2024 he was discharged to the care of Dr. Oneal, his outpatient ID doctor and Dr Faust his automobile travel club counselor for furthercare/workup ; readmission May 2025 and June 2025 with acute worsening in redness/drainage to left lower extremity. High risk for further serious morbidity and other serious sequela includingpersistent/recurrent or nonhealing wounds, persistent/progressive or recurrent infection and risk for further functional/limb loss, higher-level amputation and other dire consequences including sepsis/mortalityetc. he remains opposed to amputation; he voices understanding his poor prognosis overallincluding risks for dire consequences; past Cx with MRSA/PSA/ESBL at prior admissions; culture June 02, 2025 with Proteus/MRSA/PSA; Cx June 2025 pending; further imaging no definitive osteomyelitis but also unable to exclude per radiology at distal first/second MT --GPC bacteremia, E Faecium; NOT vanco resistant; ?foot source -v- other --Acute hematuria/UTI with chronic indwelling De Los Santos catheter. Proteus in culture so far; nursing reports De Los Santos catheter has been changed since admission; urology evaluation for further consideration of cystoscopy versus SP catheter or other; urine microscopic with yeast and potential for yeast colon ization/contaminant but also potential for evolving invasive candidiasis. Follow-up on culture data, blood catheter has been changed as above and empiric antibiotics. Mycamine IV ??1 06/26 --Acute diarrhea, Norovirus + and C. Difficile PCR +, although toxin antigen negative. He has risk for active disease and does have symptomatology and requires antibiotics for other processes, and therefore oral vancomycin added although unable to definitively confirm active disease with toxin antigen negative ( although risk for false negative); supportive care ongoing --MRSA surveillance + --Peripheral arterial disease by past evaluation of vascular team in addition to history DVT. 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 --Hx QTc > 500 ms on prior EKG PLAN: --IV vancomycin//merrem, oral vancomycin --mycamine x 1 06/26 wound culture June 02, 2025 with Proteus /MRSA, PSA urine culture June 02, 2025 E Coli/ESBL Proteus urine culture 06/25 proteus, MURRAY pending blood culture 06/25 E Faecium vanco/amp sensitive; dapto sens but dose dependent wound culture 06/25 (surface) with MRSA and ESBL proteus and morganella -Dr Marcano with plans for further debridement which should help give additional information regarding extent of disease at foot --Check/review labs cultures and scans --Partial history [...] caregivers regarding antimicrobial stewardship and antibiotic resistance. Duglas Andres MD 07/02/2025 [1] Allergies Allergen Reactions Keppra [Levetiracetam] Other (See Comments) Acute psychosis Bupropion Unknown (See Comments) Codeine Nausea Only Hydrocodone Unknown (See Comments) Ketorolac Tromethamine Unknown (See Comments) [2] Current Facility-Administered Medications Medication Dose Route Frequency Provider Last Rate Last Admin acetaminophen (TYLENOL) tablet 650 mg 650 mg Oral Q4H PRN Amanda Bermudez MD 650 mg at 06/29/25 0343 Or acetaminophen (TYLENOL) 160 MG/5ML oral solution 650 mg 650 mg Oral Q4H PRN Amanda Bermudez MD Or acetaminophen (TYLENOL) suppository 650 mg 650 mg Rectal Q4H PRN Amanda Bermudez MD aluminum-magnesium hydroxide-simethicone (MAALOX MAX) 400-400-40 MG/5ML suspension 15 mL 15 mL [id number] PRN Amanda Bermudez MD [Held by provider] apixaban (ELIQUIS) tablet 5 mg 5 mg Oral BID Amanda Bermudez MD ascorbic acid (VITAMIN C) tablet 500 mg 500 mg Oral Daily Amanda Bermudez MD 500 mg at 07/01/25 0830 baclofen (LIORESAL) tablet 10 mg 10 mg Oral Q12H Amanda Bermudez MD 10 mg at 07/01/25 2144 sennosides-docusate (PERICOLACE) 8.6-50 MG per tablet 2 tablet 2 tablet Oral BID PRN Amanda Bermudez MD And polyethylene glycol (MIRALAX) packet 17 g 17 g Oral Daily PRN Amanda Bermudez MD And bisacodyl (DULCOLAX) EC tablet 5 mg 5 mg Oral Daily PRN Amanda Bermudez MD And bisacodyl (DULCOLAX) suppository 10 mg 10 mg Rectal Daily PRN Amanda Bermudez MD Calcium Replacement - Follow Nurse / BPA Driven Protocol Not Applicable PRN Amanda Bermudez MD carvedilol (COREG) tablet 3.125 mg 3.125 mg Oral BID With Meals Amanda Bermudez MD 3.125 mg at 07/01/25 1712 clopidogrel (PLAVIX) tablet 75 mg 75 mg Oral Daily Amanda Bermudez MD 75 mg at 07/01/25 0830 famotidine (PEPCID) tablet 20 mg 20 mg Oral BID AC Arnoldo Crews, PharmD 20 mg at 07/02/25 0649 finasteride (PROSCAR) tablet 5 mg 5 mg Oral Daily Amanda Bermudez MD 5 mg at 07/01/25 0830 folic acid (FOLVITE) tablet 1 mg 1 mg Oral Daily Amanda Bermudez MD 1 mg at 07/01/25 0830 gabapentin (NEURONTIN) capsule 300 mg 300 mg Oral Q8H Milena Jo APRN 300 mg at 07/02/25 0649 heparin (porcine) 5000 UNIT/ML injection 5,000 Units 5,000 Units Subcutaneous Q8H Lupe Albert APRN 5,000 Units at 07/02/25 0649 influenza vac split high-dose (FLUZONE HIGH DOSE) injection 0.5 mL 0.5 mL Intramuscular During Hospitalization Kris Boston DO insulin glargine (LANTUS, SEMGLEE) injection 56 Units 56 Units Subcutaneous Nightly Amanda Bermudez MD 56 Units at 07/01/25 2145 ipratropium-albuterol (DUO-NEB) nebulizer solution 3 mL 3 mL Nebulization Q6H PRN Amanda Bermudez MD lamoTRIgine (LaMICtal) tablet 100 mg 100 mg Oral Daily Amanda Bermudez MD 100 mg at 07/01/25 0830 lamoTRIgine (LaMICtal) tablet 250 mg 250 mg Oral Nightly Amanda Bermudez MD 250 mg at 07/01/25 2144 Magnesium Cardiology Dose Replacement - Follow Nurse / BPA Driven Protocol Not Applicable PRN Amanda Bermudez MD meropenem (MERREM) 500 mg in sodium chloride 0.9 % 100 mL MBP 500 mg Intravenous Q6H Duglas Andres MD 500 mg at 07/02/25 0359 methenamine (HIPREX) tablet 1 g 1 g Oral BID With Meals Amanda Bermudez MD 1 g at 07/01/25 1713 multivitamin with minerals 1 tablet 1 tablet Oral Daily Amanda Bermudez MD 1 tablet at 07/01/25 0830 naloxone (NARCAN) injection 0.4 mg 0.4 mg Intravenous Q5 Min PRN Amanda Bermudez MD nitroglycerin (NITROSTAT) SL tablet 0.4 mg 0.4 mg Sublingual Q5 Min PRN Amanda Bermudez MD ondansetron (ZOFRAN) injection 4 mg 4 mg Intravenous Q6H PRN Amanda Bermudez MD 4 mg at 06/29/25 1646 oxyCODONE-acetaminophen (PERCOCET) 10-325 MG per tablet 1 tablet 1 tablet Oral Q6H PRN Kris Boston DO 1 tablet at 07/02/25 0125 Pharmacy to dose vancomycin Not Applicable Continuous PRN Duglas Andres MD Phosphorus Replacement - Follow Nurse / BPA Driven Protocol Not Applicable PRN Amanda Bermudez MD Potassium Replacement - Follow Nurse / BPA Driven Protocol Not Applicable PRN Amanda Bermudez MD sacubitril-valsartan (ENTRESTO) 24-26 MG tablet 1 tablet 1 tablet Oral BID Amanda Bermudez MD 1 tablet at 07/01/25 2144 sodium chloride 0.9 % flush 10 mL 10 mL Intravenous PRN Ally Jeffers V, DIABETES NURSE sodium chloride 0.9 % flush 10 mL 10 mL Intravenous Q12H Amanda Bermudez MD 10 mL at 07/01/25 0832 sodium chloride 0.9 % flush 10 mL 10 mL Intravenous PRN Amanda Bermudez MD sodium chloride 0.9 % flush 10 mL 10 mL Intravenous Q12H Duglas Andres MD 10 mL at 07/01/25 2145 sodium chloride 0.9 % flush 10 mL 10 mL Intravenous PRN Duglas Andres MD sodium chloride 0.9 % flush 20 mL 20 mL Intravenous PRN Duglas Andres MD sodium chloride 0.9 % infusion 40 mL 40 mL Intravenous PRN Duglas Andres MD vancomycin (VANCOCIN) 1,000 mg in sodium chloride 0.9 % 250 mL IVPB-VTB 1,000 mg Intravenous Q12H Osmany Mccann, [facility] 250 mL/hr at 07/01/252142 1,000 mg at 07/01/25 214 vancomycin (VANCOCIN) capsule 125 mg 125 mg Oral 4x Daily Duglas Andres MD 125 mg at Followed by [START ON 07/10/2025] vancomycin (VANCOCIN) capsule 125 mg 125 mg Oral TID Duglas Andres MD Followed by [START ON 07/17/2025] vancomycin (VANCOCIN) capsule 125 mg 125 mg Oral BID Duglas Andres MD Followed by [START ON 07/25/2025] vancomycin (VANCOCIN) capsule 125 mg 125 mg Oral Daily Duglas Andres MD Followed by [START ON 08/01/2025] vancomycin (VANCOCIN) capsule 125 mg 125 mg Oral Weekly Duglas Andres MD * Kris Boston, DO - 07/01/2025 1:17 PM EDT Images from the original note were not included. [facility] Medicine Services PROGRESS NOTE Patient Name: Trung Pool : 1955 Date of Admission: 06/25/2025 Primary Care Physician: Gustavo Mehta MD Subjective Subjective CC: LLE wound HPI: Patient seen resting comfortably in bed in no acute distress. States he feels fatigued today. Reports minimal improvement with oral pain medications. Objective Objective Vital Signs: Temp: [97.5 ??F (36.4 ??C)-98.7 ??F (37.1 ??C)] 97.5 ??F (36.4 ??C) Heart Rate: [66-80] 80 Resp: [16-20] 20 BP: (143-167)/(69-90) 143/75 Physical Exam Cardiovascular: Rate and Rhythm: Normal rate. Pulses: Normal pulses. Pulmonary: Effort: Pulmonary effort is normal. No respiratory distress. Abdominal: General: There is no distension. Palpations: Abdomen is soft. Tenderness: There is no abdominal tenderness. There is no guarding or rebound. Musculoskeletal: Right lower leg: No edema. Left lower leg: No edema. Comments: LLE wrapped, Right BKA Skin: General: Skin is warm. Neurological: Mental Status: He is alert. Psychiatric: Mood and Affect: Mood normal. Behavior: Behavior normal. Results Reviewed: LAB RESULTS: Lab 06/30/25 0429 06/29/25 0623 06/27/25 0400 06/26/25 0741 06/26/25 0740 06/25/25 1817 WBC 5.48 7.30 9.98 -- 9.69 9.96 HEMOGLOBIN 9.2* 9.0* 9.4* -- 8.8* 8.9* HEMATOCRIT 31.6* 29.2* 30.4* -- 29.3* 29.8* PLATELETS 259 289 274 -- 271 281 NEUTROS ABS 3.05 4.71 6.79 -- 6.58 7.05* IMMATURE GRANS (ABS) 0.02 0.03 0.04 -- 0.04 0.05 LYMPHS ABS 1.32 1.44 1.79 -- 1.77 1.48 MONOS ABS 0.64 0.64 0.83 -- 0.80 1.01* EOS ABS 0.40 0.42* 0.47* -- 0.43* 0.32 MCV 80.0 75.5* 77.4* -- 77.5* 76.2* CRP -- -- -- -- -- 4.34* PROCALCITONIN -- -- -- -- -- 0.12 LACTATE -- -- -- 1.2 -- 1.7 PROTIME -- -- -- 16.7* -- -- Lab 07/01/25 0329 06/30/25 0429 06/29/25 0624 06/28/25 0400 06/27/25 0400 06/26/25 0741 SODIUM 135* 138 138 140 139 142 POTASSIUM 4.7 4.7 4.5 4.6 4.3 3.7 CHLORIDE 104 107 106 111* 109* 112* CO2 21.3* 20.8* 21.9* 21.7* 20.3* 21.4* ANION GAP 9.7 10.2 10.1 7.3 9.7 8.6 BUN 13.7 12.3 11.4 11.0 15.3 19.1 CREATININE 0.93 0.89 0.89 0.79 0.92 0.88 EGFR 87.8 91.6 91.6 95.0 88.9 91.9 GLUCOSE 70 164* 175* 125* 91 134* CALCIUM 8.7 8.4* 8.5* 8.2* 8.1* 8.3* MAGNESIUM -- -- -- -- 2.2 1.8 PHOSPHORUS -- -- -- -- -- 2.9 HEMOGLOBIN A1C -- -- -- -- -- 7.82* TSH -- -- -- -- -- 0.340 Lab 06/26/25 0741 06/25/25 1817 TOTAL PROTEIN 7.1 7.2 ALBUMIN 3.0* 3.2* GLOBULIN 4.1 4.0 ALT (SGPT) 13 14 AST (SGOT) 15 15 BILIRUBIN 0.2 0.2 ALK PHOS 116 127* Lab 06/26/25 0741 PROTIME 16.7* INR 1.27* Lab 06/26/25 0741 CHOLESTEROL 154 LDL CHOL 103* HDL CHOL 27* TRIGLYCERIDES 131 Lab 06/26/25 0741 IRON 14* IRON SATURATION (TSAT) 5* TIBC 256* TRANSFERRIN 172* FERRITIN 108.00 VITAMIN B 12 922 ABO TYPING B RH TYPING Positive ANTIBODY SCREEN Negative Brief Urine Lab Results (Last result in the past 365 days) Color Clarity Blood Leuk Est Nitrite Protein CREAT Urine HCG 06/25/252000 Yellow Turbid Large (3+) Large (3+) Positive Trace Microbiology Results Abnormal Procedure Component Value - Date/Time Urine Culture - Urine, Indwelling Urethral Catheter [[id number]] (Abnormal) (Susceptibility) Collected: 06/25/252000 Lab Status: Final result Specimen: Urine from Indwelling Urethral Catheter Updated: 06/30/25 1001 Urine Culture >100,000 CFU/mL Proteus mirabilis Narrative: Colonization of the urinary tract without infection is common. Treatment is discouraged unless the patient is symptomatic, , or undergoing an invasive urologic procedure. Susceptibility Proteus mirabilis MURRAY Amoxicillin + Clavulanate Susceptible Ampicillin Resistant Ampicillin + Sulbactam Intermediate Cefazolin (Urine) Resistant Cefepime Resistant Ceftazidime Susceptible Ceftriaxone Resistant Cefuroxime axetil Resistant Ciprofloxacin Resistant Gentamicin Susceptible Levofloxacin Resistant Nitrofurantoin Resistant Piperacillin + Tazobactam Susceptible Trimethoprim + Sulfamethoxazole Resistant Blood Culture - Blood, Hand, Right [[id number]] (Abnormal) (Susceptibility) Collected: 06/25/252029 Lab Status: Edited Result - FINAL Specimen: Blood from Hand, Right Updated: 06/29/25 0713 Blood Culture Enterococcus faecium Comment: Infectious disease consultation is highly recommended. Isolated from Anaerobic Bottle Gram Stain Anaerobic Bottle Gram positive cocci in chains Narrative: Less than seven (7) mL's of blood was collected. Insufficient quantity may yield false negative results. requested linezolid & daptomycin 06/28/25 Susceptibility Enterococcus faecium MURRAY Method Not Specified Ampicillin Susceptible Daptomycin Susceptible dose dependent Gentamicin High Level Synergy Susceptible Linezolid Susceptible (C) [1] Vancomycin Susceptible [1] Appended report. These results have been appended to a previously final verified report. Wound Culture - Swab, Foot, Left [[id number]] (Abnormal) (Susceptibility) Collected: 06/25/25 1818 Lab Status: Final result Specimen: Swab from Foot, Left Updated: 06/29/25 0645 Wound Culture Heavy growth (4+) Staphylococcus aureus, MRSA Comment: Methicillin resistant Staphylococcus aureus, Patient may be an isolation risk. Moderate growth (3+) Morganella morganii ssp morganii Moderate growth (3+) Proteus mirabilis ESBL Comment: Consider infectious disease consult. Susceptibility results may not correlate to clinical outcomes. Gram Stain Few (2+) WBCs seen Few (2+) Gram positive cocci in pairs, chains and clusters Few (2+) Gram negative bacilli Susceptibility Staphylococcus aureus, MRSA MURRAY Clindamycin Susceptible Erythromycin Resistant Oxacillin Resistant Rifampin Susceptible Tetracycline Susceptible Trimethoprim + Sulfamethoxazole Resistant Vancomycin Susceptible Susceptibility Morganella morganii ssp morganii MURRAY Method Not Specified Amoxicillin + Clavulanate Resistant Ampicillin Resistant Ampicillin + Sulbactam Resistant Cefazolin (Non Urine) Resistant Cefepime Susceptible Cefotaxime Susceptible Ceftazidime Susceptible Cefuroxime axetil Resistant Ciprofloxacin Resistant Gentamicin Susceptible Levofloxacin Resistant Piperacillin + Tazobactam Susceptible Tetracycline Susceptible Trimethoprim + Sulfamethoxazole Resistant Susceptibility Proteus mirabilis ESBL MURRAY Ciprofloxacin Resistant Ertapenem Susceptible Levofloxacin Resistant Meropenem Susceptible Tetracycline Resistant Trimethoprim + Sulfamethoxazole Resistant Susceptibility Comments Morganella morganii ssp morganii Cefotaxime susceptibility can be used as a surrogate for ceftriaxone susceptibility Proteus mirabilis ESBL With the exception of urinary-sourced infections, aminoglycosides should not be used as monotherapy. Blood Culture ID, PCR - Blood, Hand, Right [[id number]] (Abnormal) Collected: 06/25/25 2030 Lab Status: Final result Specimen: Blood from Hand, Right Updated: 06/26/252101 BCID, PCR Enterococcus faecium. Zee/B (vancomycin resistance gene) not detected. Identification byBCID2 PCR. BOTTLE TYPE Anaerobic Bottle Narrative: Infectious disease consultation is highly recommended to rule out distant foci of infection. MRSA Screen, PCR (Inpatient) - Swab, Nares [[id number]] (Abnormal) Collected: 06/26/25 0046 Lab Status: Final result Specimen: Swab from Nares Updated: 06/26/25 0850 MRSA PCR Positive Narrative: The negative predictive value of this diagnostic test is high and should only be used to consider de-escalating anti-MRSA therapy. A positive result may indicate colonization with MRSA and must be correlated clinically. Gastrointestinal Panel, PCR - Stool, Per Rectum [[id number]] (Abnormal) Collected: 06/26/2545 Lab Status: Final result Specimen: Stool from Per Rectum Updated: 06/26/25 0850 Campylobacter Not Detected Plesiomonas shigelloides Not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 to amputation; he voices understanding his poor prognosis overallincluding risks for dire consequences; past Cx with MRSA/PSA/ESBL at prior admissions; culture June 02, 2025 with Proteus/MRSA/PSA; Cx June 2025 pending; further imaging no definitive osteomyelitis but also unable to exclude per radiology at distal first/second MT --GPC bacteremia, E Faecium; NOT vanco resistant; risk for dapto resistance with prior daptomycin; ?foot source -v- other --Acute hematuria/UTI with chronic indwelling De Los Santos catheter. Proteus in culture so far; nursing reports De Los Santos catheter has been changed since admission; urology evaluation for further consideration of cystoscopy versus SP catheter or other; urine microscopic with yeast and potential for yeast colon ization/contaminant but also potential for evolving invasive candidiasis. Follow-up on culture data, blood catheter has been changed as above and empiric antibiotics. Mycamine IV ??1 06/26 --Acute diarrhea, Norovirus + and C. Difficile PCR +, although toxin antigen negative. He has risk for active disease and does have symptomatology and requires antibiotics for other processes, and therefore oral vancomycin added although unable to definitively confirm active disease with toxin antigen negative ( although risk for false negative); supportive care ongoing --MRSA surveillance + --Peripheral arterial disease by past evaluation of vascular team in addition to history DVT. 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 --Hx QTc > 500 ms on prior EKG PLAN: --IV vancomycin//merrem, oral vancomycin --mycamine x 1 06/26 wound culture June 02, 2025 with Proteus /MRSA, PSA urine culture June 02, 2025 E Coli/ESBL Proteus urine culture 06/25 proteus, MURRAY pending blood culture 06/25 E Faecium vanco/amp sensitive; dapto sens but dose dependent wound culture 06/25 (surface) with MRSA and ESBL proteus and morganella -Dr Marcano with plans for further debridement which should help give additional information regarding extent of disease at foot --Check/review labs cultures and scans --Partial history [...] associated with antimicrobial prescribing. Counseled patients, family members and/or caregivers regarding infection prevention. Duglas Andres MD 07/01/2025 [1] Allergies Allergen Reactions Keppra [Levetiracetam] Other (See Comments) Acute psychosis Bupropion Unknown (See Comments) Codeine Nausea Only Hydrocodone Unknown (See Comments) Ketorolac Tromethamine Unknown (See Comments) [2] Current Facility-Administered Medications Medication Dose Route Frequency Provider Last Rate Last Admin acetaminophen (TYLENOL) tablet 650 mg 650 mg Oral Q4H PRN Amanda Bermudez MD 650 mg at 06/29/25 0343 Or acetaminophen (TYLENOL) 160 MG/5ML oral solution 650 mg 650 mg Oral Q4H PRN Amanda Bermudez MD Or acetaminophen (TYLENOL) suppository 650 mg 650 mg Rectal Q4H PRN Amanda Bermudez MD aluminum-magnesium hydroxide-simethicone (MAALOX MAX) 400-400-40 MG/5ML suspension 15 mL 15 mL [id number] PRN Amanda Bermudez MD [Held by provider] apixaban (ELIQUIS) tablet 5 mg 5 mg Oral BID Amanda Bermudez MD ascorbic acid (VITAMIN C) tablet 500 mg 500 mg Oral Daily Amanda Bermudez MD 500 mg at 06/30/25 0949 baclofen (LIORESAL) tablet 10 mg 10 mg Oral Q12H Amanda Bermudez MD 10 mg at 06/30/25 2152 sennosides-docusate (PERICOLACE) 8.6-50 MG per tablet 2 tablet 2 tablet Oral BID PRN Amanda Bermudez MD And polyethylene glycol (MIRALAX) packet 17 g 17 g Oral Daily PRN Amanda Bermudez MD And bisacodyl (DULCOLAX) EC tablet 5 mg 5 mg Oral Daily PRN Amanda Bermudez MD And bisacodyl (DULCOLAX) suppository 10 mg 10 mg Rectal Daily PRN Amanda Bermudez MD Calcium Replacement - Follow Nurse / BPA Driven Protocol Not Applicable PRN Amanda Bermudez MD carvedilol (COREG) tablet 3.125 mg 3.125 mg Oral BID With Meals Amanda Bermudez MD 3.125 mg at 06/30/25 1815 clopidogrel (PLAVIX) tablet 75 mg 75 mg Oral Daily Amanda Bermudez MD 75 mg at 06/30/25 0950 famotidine (PEPCID) tablet 20 mg 20 mg Oral BID AC Arnoldo Crews, PharmD 20 mg at 06/30/25 1630 finasteride (PROSCAR) tablet 5 mg 5 mg Oral Daily Amanda Bermudez MD 5 mg at 06/30/25 0948 folic acid (FOLVITE) tablet 1 mg 1 mg Oral Daily Amanda Bermudez MD 1 mg at 06/30/25 0949 gabapentin (NEURONTIN) capsule 300 mg 300 mg Oral Q8H Milena Jo APRN 300 mg at 07/01/25 0512 heparin (porcine) 5000 UNIT/ML injection 5,000 Units 5,000 Units Subcutaneous Q8H Lupe Albert APRN 5,000 Units at 07/01/25 0512 influenza vac split high-dose (FLUZONE HIGH DOSE) injection 0.5 mL 0.5 mL Intramuscular During Hospitalization Kris Boston DO insulin glargine (LANTUS, SEMGLEE) injection 56 Units 56 Units Subcutaneous Nightly Amanda Bermudez MD 56 Units at 06/30/25 2202 ipratropium-albuterol (DUO-NEB) nebulizer solution 3 mL 3 mL Nebulization Q6H PRN Amanda Bermudez MD lamoTRIgine (LaMICtal) tablet 100 mg 100 mg Oral Daily Amanda Bermudez MD 100 mg at 06/30/25 0949 lamoTRIgine (LaMICtal) tablet 250 mg 250 mg Oral Nightly Amanda Bermudez MD 250 mg at 06/30/25 2150 Magnesium Cardiology Dose Replacement - Follow Nurse / BPA Driven Protocol Not Applicable PRN Amanda Bermudez MD meropenem (MERREM) 500 mg in sodium chloride 0.9 % 100 mL MBP 500 mg Intravenous Q6H Duglas Andres MD 500 mg at 07/01/25 0512 methenamine (HIPREX) tablet 1 g 1 g Oral BID With Meals Amanda Bermudez MD 1 g at 06/30/25 1815 multivitamin with minerals 1 tablet 1 tablet Oral Daily Amanda Bermudez MD 1 tablet at 06/30/25 0949 naloxone (NARCAN) injection 0.4 mg 0.4 mg Intravenous Q5 Min PRN Amanda Bermudez MD nitroglycerin (NITROSTAT) SL tablet 0.4 mg 0.4 mg Sublingual Q5 Min PRN Amanda Bermudez MD ondansetron (ZOFRAN) injection 4 mg 4 mg Intravenous Q6H PRN Amanda Bermudez MD 4 mg at 06/29/25 1646 oxyCODONE-acetaminophen (PERCOCET) 7.5-325 MG per tablet 1 tablet 1 tablet Oral Q6H PRN Milena Jo APRN 1 tablet at 07/01/25 0337 Pharmacy to dose vancomycin Not Applicable Continuous PRN Duglas Andres MD Phosphorus Replacement - Follow Nurse / BPA Driven Protocol Not Applicable PRN Amanda Bermudez MD Potassium Replacement - Follow Nurse / BPA Driven Protocol Not Applicable PRN Amanda Bermudez MD sacubitril-valsartan (ENTRESTO) 24-26 MG tablet 1 tablet 1 tablet Oral BID Amanda Bermudez MD 1 tablet at 06/30/25 2152 sodium chloride 0.9 % flush 10 mL 10 mL Intravenous PRN Ally Jeffers V, DIABETES NURSE sodium chloride 0.9 % flush 10 mL 10 mL Intravenous Q12H Amanda Bermudez MD 10 mL at 06/30/25 0951 sodium chloride 0.9 % flush 10 mL 10 mL Intravenous PRN Amanda Bermudez MD sodium chloride 0.9 % flush 10 mL 10 mL Intravenous Q12H Duglas Andres MD 10 mL at 06/30/25 0951 sodium chloride 0.9 % flush 10 mL 10 mL Intravenous PRN Duglas Andres MD sodium chloride 0.9 % flush 20 mL 20 mL Intravenous PRN Duglas Andres MD sodium chloride 0.9 % infusion 40 mL 40 mL Intravenous PRN Duglas Andres MD vancomycin (VANCOCIN) 1,000 mg in sodium chloride 0.9 % 250 mL IVPB-VTB 1,000 mg Intravenous Q12H Osmany Mccann, [facility] 250 mL/hr at 06/30/25 2150 1,000 mg at 06/30/25 2150 vancomycin (VANCOCIN) capsule 125 mg 125 mg Oral 4x Daily Duglas Andres MD 125 mg at 152 Followed by [START ON 07/10/2025] vancomycin (VANCOCIN) capsule 125 mg 125 mg Oral TID Duglas Andres MD Followed by [START ON 07/17/2025] vancomycin (VANCOCIN) capsule 125 mg 125 mg Oral BID Duglas Andres MD Followed by [START ON 07/25/2025] vancomycin (VANCOCIN) capsule 125 mg 125 mg Oral Daily Duglas Andres MD Followed by [START ON 08/01/2025] vancomycin (VANCOCIN) capsule 125 mg 125 mg Oral Weekly Duglas Andres MD * [place]Kris, - 06/30/2025 1:59 PM EDT Images from the original note were not included. [facility] Medicine Services PROGRESS NOTE Patient Name: Trung Pool : [phone] Date of Admission: 06/25/2025 Primary Care Physician: Gustavo Mehta MD Subjective Subjective CC: LLE wound HPI: Patient seen resting comfortably in bed in no acute distress. Reports intermittent throbbing left lower extremity pain. Discussed with patient that he has as needed pain medications available to him.Patient voiced understanding. Objective Objective Vital Signs: Temp: [97.4 ??F (36.3 ??C)-98.2 ??F (36.8 ??C)] 97.5 ??F (36.4 ??C) Heart Rate: [65-76] 76 Resp: [12-18] 18 BP: (110-149)/(54-79) 110/54 Physical Exam Cardiovascular: Rate and Rhythm: Normal rate. Pulses: Normal pulses. Pulmonary: Effort: Pulmonary effort is normal. No respiratory distress. Abdominal: General: There is no distension. Palpations: Abdomen is soft. Tenderness: There is no abdominal tenderness. There is no guarding or rebound. Musculoskeletal: Right lower leg: No edema. Left lower leg: No edema. Comments: LLE wrapped Skin: General: Skin is warm. Neurological: Mental Status: He is alert. Psychiatric: Mood and Affect: Mood normal. Behavior: Behavior normal. Results Reviewed: LAB RESULTS: Lab 06/30/25 0429 06/29/25 0623 06/27/25 0400 06/26/25 0741 06/26/25 0740 06/25/25 1817 WBC 5.48 7.30 9.98 -- 9.69 9.96 HEMOGLOBIN 9.2* 9.0* 9.4* -- 8.8* 8.9* HEMATOCRIT 31.6* 29.2* 30.4* -- 29.3* 29.8* PLATELETS 259 289 274 -- 271 281 NEUTROS ABS 3.05 4.71 6.79 -- 6.58 7.05* IMMATURE GRANS (ABS) 0.02 0.03 0.04 -- 0.04 0.05 LYMPHS ABS 1.32 1.44 1.79 -- 1.77 1.48 MONOS ABS 0.64 0.64 0.83 -- 0.80 1.01* EOS ABS 0.40 0.42* 0.47* -- 0.43* 0.32 MCV 80.0 75.5* 77.4* -- 77.5* 76.2* CRP -- -- -- -- -- 4.34* PROCALCITONIN -- -- -- -- -- 0.12 LACTATE -- -- -- 1.2 -- 1.7 PROTIME -- -- -- 16.7* -- -- Lab 06/30/25 0429 06/29/25 0624 06/28/25 0400 06/27/25 0400 06/26/25 0741 SODIUM 138 138 140 139 142 POTASSIUM 4.7 4.5 4.6 4.3 3.7 CHLORIDE 107 106 111* 109* 112* CO2 20.8* 21.9* 21.7* 20.3* 21.4* ANION GAP 10.2 10.1 7.3 9.7 8.6 BUN 12.3 11.4 11.0 15.3 19.1 CREATININE 0.89 0.89 0.79 0.92 0.88 EGFR 91.6 91.6 95.0 88.9 91.9 GLUCOSE 164* 175* 125* 91 134* CALCIUM 8.4* 8.5* 8.2* 8.1* 8.3* MAGNESIUM -- -- -- 2.2 1.8 PHOSPHORUS -- -- -- -- 2.9 HEMOGLOBIN A1C -- -- -- -- 7.82* TSH -- -- -- -- 0.340 Lab 06/26/25 0741 06/25/25 1817 TOTAL PROTEIN 7.1 7.2 ALBUMIN 3.0* 3.2* GLOBULIN 4.1 4.0 ALT (SGPT) 13 14 AST (SGOT) 15 15 BILIRUBIN 0.2 0.2 ALK PHOS 116 127* Lab 06/26/25 0741 PROTIME 16.7* INR 1.27* Lab 06/26/25 0741 CHOLESTEROL 154 LDL CHOL 103* HDL CHOL 27* TRIGLYCERIDES 131 Lab 06/26/25 0741 IRON 14* IRON SATURATION (TSAT) 5* TIBC 256* TRANSFERRIN 172* FERRITIN 108.00 VITAMIN B 12 922 ABO TYPING B RH TYPING Positive ANTIBODY SCREEN Negative Brief Urine Lab Results (Last result in the past 365 days) Color Clarity Blood Leuk Est Nitrite Protein CREAT Urine HCG 06/25/252000 Yellow Turbid Large (3+) Large (3+) Positive Trace Microbiology Results Abnormal Procedure Component Value - Date/Time Urine Culture - Urine, Indwelling Urethral Catheter [[id number]] (Abnormal) (Susceptibility) Collected: 06/25/252000 Lab Status: Final result Specimen: Urine from Indwelling Urethral Catheter Updated: 06/30/25 1001 Urine Culture >100,000 CFU/mL Proteus mirabilis Narrative: Colonization of the urinary tract without infection is common. Treatment is discouraged unless the patient is symptomatic, , or undergoing an invasive urologic procedure. Susceptibility Proteus mirabilis MURRAY Amoxicillin + Clavulanate Susceptible Ampicillin Resistant Ampicillin + Sulbactam Intermediate Cefazolin (Urine) Resistant Cefepime Resistant Ceftazidime Susceptible Ceftriaxone Resistant Cefuroxime axetil Resistant Ciprofloxacin Resistant Gentamicin Susceptible Levofloxacin Resistant Nitrofurantoin Resistant Piperacillin + Tazobactam Susceptible Trimethoprim + Sulfamethoxazole Resistant Blood Culture - Blood, Hand, Right [[id number]] (Abnormal) (Susceptibility) Collected: 06/25/252029 Lab Status: Edited Result - FINAL Specimen: Blood from Hand, Right Updated: 06/29/25 07 Blood Culture Enterococcus faecium Comment: Infectious disease consultation is highly recommended. Isolated from Anaerobic Bottle Gram Stain Anaerobic Bottle Gram positive cocci in chains Narrative: Less than seven (7) mL's of blood was collected. Insufficient quantity may yield false negative results. requested linezolid & daptomycin 06/28/25 Susceptibility Enterococcus faecium MURRAY Method Not Specified Ampicillin Susceptible Daptomycin Susceptible dose dependent Gentamicin High Level Synergy Susceptible Linezolid Susceptible (C) [1] Vancomycin Susceptible [1] Appended report. These results have been appended to a previously final verified report. Wound Culture - Swab, Foot, Left [[id number]] (Abnormal) (Susceptibility) Collected: 06/25/258 Lab Status: Final result Specimen: Swab from Foot, Left Updated: 06/29/25 0645 Wound Culture Heavy growth (4+) Staphylococcus aureus, MRSA Comment: Methicillin resistant Staphylococcus aureus, Patient may be an isolation risk. Moderate growth (3+) Morganella morganii ssp morganii Moderate growth (3+) Proteus mirabilis ESBL Comment: Consider infectious disease consult. Susceptibility results may not correlate to clinical outcomes. Gram Stain Few (2+) WBCs seen Few (2+) Gram positive cocci in pairs, chains and clusters Few (2+) Gram negative bacilli Susceptibility Staphylococcus aureus, MRSA MURRAY Clindamycin Susceptible Erythromycin Resistant Oxacillin Resistant Rifampin Susceptible Tetracycline Susceptible Trimethoprim + Sulfamethoxazole Resistant Vancomycin Susceptible Susceptibility Morganella morganii ssp morganii MURRAY Method Not Specified Amoxicillin + Clavulanate Resistant Ampicillin Resistant Ampicillin + Sulbactam Resistant Cefazolin (Non Urine) Resistant Cefepime Susceptible Cefotaxime Susceptible Ceftazidime Susceptible Cefuroxime axetil Resistant Ciprofloxacin Resistant Gentamicin Susceptible Levofloxacin Resistant Piperacillin + Tazobactam Susceptible Tetracycline Susceptible Trimethoprim + Sulfamethoxazole Resistant Susceptibility Proteus mirabilis ESBL MURRAY Ciprofloxacin Resistant Ertapenem Susceptible Levofloxacin Resistant Meropenem Susceptible Tetracycline Resistant Trimethoprim + Sulfamethoxazole Resistant Susceptibility Comments Morganella morganii ssp morganii Cefotaxime susceptibility can be used as a surrogate for ceftriaxone susceptibility Proteus mirabilis ESBL With the exception of urinary-sourced infections, aminoglycosides should not be used as monotherapy. Blood Culture ID, PCR - Blood, Hand, Right [[id number]] (Abnormal) Collected: 06/25/25 2030 Lab Status: Final result Specimen: Blood from Hand, Right Updated: 06/26/252101 BCID, PCR Enterococcus faecium. Zee/B (vancomycin resistance gene) not detected. Identification byBCID2 PCR. BOTTLE TYPE Anaerobic Bottle Narrative: Infectious disease consultation is highly recommended to rule out distant foci of infection. MRSA Screen, PCR (Inpatient) - Swab, Nares [[id number]] (Abnormal) Collected: 06/26/2545 Lab Status: Final result Specimen: Swab from Nares Updated: 06/26/25849 MRSA PCR Positive Narrative: The negative predictive value of this diagnostic test is high and should only be used to consider de-escalating anti-MRSA therapy. A positive result may indicate colonization with MRSA and must be correlated clinically. Gastrointestinal Panel, PCR - Stool, Per Rectum [[id number]] (Abnormal) Collected: 06/26/2545 Lab Status: Final result Specimen: Stool from Per Rectum Updated: 06/26/25849 Campylobacter Not Detected Plesiomonas shigelloides Not Detected Salmonella Not Detected Vibrio Not Detected Vibrio cholerae Not Detected Yersinia enterocolitica Not Detected Enteroaggregative E. coli (EAEC) Not Detected Enteropathogenic E. coli (EPEC) Not Detected Enterotoxigenic E. coli (ETEC) lt/st Not Detected Shiga-like toxin-producing E. coli (STEC) stx1/stx2 Not Detected Shigella/Enteroinvasive E. coli (EIEC) Not Detected Cryptosporidium Not Detected Cyclospora cayetanensis Not Detected Entamoeba histolytica Not Detected Giardia lamblia Not Detected Adenovirus F40/41 Not Detected Astrovirus Not Detected Norovirus GI/GII Detected Comment: If a positive Norovirus result is inconsistent with clinical presentation, the positive Norovirus result should be confirmed using another method. Rotavirus A Not Detected Sapovirus (I, II, IV or V) Not Detected Clostridioides difficile Toxin - Stool, Per Rectum [[id number]] (Abnormal) Collected: 06/26/2545 Lab Status: Final result Specimen: Stool from Per Rectum Updated: 06/26/25754 Narrative: The following orders were created for panel order Clostridioides difficile Toxin - Stool, Per Rectum. Procedure Abnormality Status --------- ------ Clostridioides difficile...[[id number]] Abnormal Final result Please view results for these tests on the individual orders. Clostridioides difficile Toxin, PCR - Stool, Per Rectum [[id number]] (Abnormal) Collected: 06/26/2545 Lab Status: Final result Specimen: Stool from Per Rectum Updated: 06/26/25754 Toxigenic C. difficile by PCR Detected Narrative: DNA from a toxigenic strain of C.difficile has been detected. No radiology results from the last 24 hrs Results for orders placed during the hospital encounter of 08/31/24 Adult Transthoracic Echo Complete W/ Cont if Necessary Per Protocol 09/12/2024 4:10 PM Interpretation Summary ??? Left ventricular systolic function is normal. Calculated left ventricular EF = 52.5% ??? There is a trivial pericardial effusion. ??? The aortic valve exhibits sclerosis. ??? Mitral annular calcification is present. I have personally reviewed the therapy plans: [] PT/OT/ ST Therapy Plans Current medications: Scheduled Meds:[Held by provider] apixaban, 5 mg, Oral, BID vitamin C, 500 mg, Oral, Daily baclofen, 10 mg, Oral, Q12H carvedilol, 3.125 mg, Oral, BID With Meals clopidogrel, 75 mg, Oral, Daily famotidine, 20 mg, Oral, BID AC finasteride, 5 mg, Oral, Daily folic acid, 1 mg, Oral, Daily gabapentin, 300 mg, Oral, Q8H heparin (porcine), 5,000 Units, Subcutaneous, Q8H insulin glargine, 56 Units, Subcutaneous, Nightly lamoTRIgine, 100 mg, Oral, Daily lamoTRIgine, 250 mg, Oral, Nightly meropenem, 500 mg, Intravenous, Q6H methenamine, 1 g, Oral, BID With Meals multivitamin with minerals, 1 tablet, Oral, Daily sacubitril-valsartan, 1 tablet, Oral, BID sodium chloride, 10 mL, Intravenous, Q12H sodium chloride, 10 mL, Intravenous, Q12H vancomycin, 1,000 mg, Intravenous, Q12H vancomycin, 125 mg, Oral, 4x Daily Followed by [START ON 07/10/2025] vancomycin, 125 mg, Oral, TID Followed by [START ON 07/17/2025] vancomycin, 125 mg, Oral, BID Followed by [START ON 07/25/2025] vancomycin, 125 mg, Oral, Daily Followed by [START ON 08/01/2025] vancomycin, 125 mg, Oral, Weekly Continuous Infusions:Pharmacy to dose vancomycin, PRN Meds:.??? acetaminophen OR acetaminophen OR acetaminophen ??? aluminum-magnesium hydroxide-simethicone ??? senna-docusate sodium AND polyethylene glycol AND bisacodyl AND bisacodyl ??? Calcium Replacement - Follow Nurse / BPA Driven Protocol ??? ipratropium-albuterol ??? Magnesium Cardiology Dose Replacement - Follow Nurse / BPA Driven Protocol ??? [DISCONTINUED] Morphine AND naloxone ??? nitroglycerin ??? ondansetron ??? oxyCODONE-acetaminophen ??? Pharmacy to dose vancomycin ??? Phosphorus Replacement - Follow Nurse / BPA Driven Protocol ??? Potassium Replacement - Follow Nurse / BPA Driven Protocol ??? Insert Peripheral IV AND sodium chloride ??? sodium chloride ??? sodium chloride ??? sodium chloride ??? sodium chloride Assessment & Plan Assessment & Plan Active Hospital Problems Diagnosis POA ??? Gastroenteritis due to norovirus [A08.11] Yes ??? Acute UTI (urinary tract infection) [N39.0] Yes ??? Diarrhea of presumed infectious origin [R19.7] Yes ??? Acute on chronic blood loss anemia [D62] Yes ??? BPH without obstruction/lower urinary tract symptoms [N40.0] Yes ??? GERD without esophagitis [K21.9] Yes ??? Bilateral inguinal hernia [K40.20] Yes ??? Cellulitis [L03.90] Yes ??? Type 2 diabetes mellitus, with long-term current use of insulin [E11.9, Z79.4] Not Applicable ??? Wound infection [T14.8XXA, L08.9] Unknown ??? PAD (peripheral artery disease) [I73.9] Yes ??? Coronary artery disease involving [place] coronary artery of [place] heart without angina pectoris [I25.10] Yes ??? Seizure disorder [G40.909] Yes ??? Primary hypertension [I10] Yes Resolved Hospital Problems No resolved problems to display. Brief Hospital Course to date: Trung Pool is a 70 y.o. male with a past medical history of coronary artery disease, peripheral artery disease, type 2 diabetes mellitus (on insulin), right above-knee amputation, and seizure disorder, who was admitted with hematuria, left foot stump drainage, fatigue, and diarrhea. Infectiousdisease and vascular surgery consulted. Severe PAD History of right BKA, LLE revascularization and toe amputation Cellulitis and Left Lower Extremity Wound MRSA + Enterococcus bacteremia - Patient with increased redness, fluid drainage and ulceration of the left stump - Imaging shows marked soft tissue swelling and ulceration of the stump consistent with cellulitis,follow-up MRI - MRI L foot showing some edema in the distal first and second metatarsal diaphyses at the resection margins, osteomyelitis is not excluded, diffuse soft tissue edema and skin thickening about the remaining foot, particularly along the dorsal side and distally at the stump compatible with cellulitis. No definite abscess noted, allowing for the lack of contrast. Nondisplaced intra- articular fracture of the distal tibia with associated marrow edema. May be acute to subacute. - Follow-up CT angio left lower extremity revealing with moderate focal narrowing at the junction of the SFA and the popliteal artery. 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 Patency of the anterior and posterior tibial arteries difficult to assess due to significant venous cont amination and heavy calcification. - Left lower extremity arterial Dopplers abnormal waveforms suggest inflow disease. Moderate 60% stenosis in the left SFA, the left CHIP appears to be occluded filling vis collaterals retrograde - Blood cultures positive for Enterococcus faecium PLAN - Infectious disease consulted, continue merrem, IV/PO vancomycin - Vascular surgery consulted in the evaluation follows with Dr. Marcano; recommending more debridement of LLE and possible wound vac placement; no OR time until next week. - Resume Plavix, holding Eliquis secondary to hematuria - Patient has been adamant about not having any more amputation - increased gabapentin to 300 mg q 8 hours 06/29 Acute UTI and hematuria History of BPH -He reported blood in his urine with associated odor and had a [place] catheter in place. -UA with 4+ bacteria TNTC WBC. Urine culture with Proteus -CT imaging revealed moderate bladder distention, small amount of gas in the bladder, and mildly decreased bladder wall thickening compared to prior exam. - H&H stable, continue holding Eliquis for now - Catheter in place, continue finasteride - Urology consultation, continue de los santos. Plan to follow up outpatient for senior living bladder management - 06/27 EKG showing Qt/Qtc 412/451. Norovirus - GI PCR panel with norovirus, C. difficile toxin is positive but antigen negative suggest colonization - CT imaging suggestive of proctitis - Continue antibiotics as above, ID consulted and are following Acute on Chronic anemia, possible blood loss -Continue to monitor H&H, holding of Eliquis -Transfuse PRBC if hemoglobin<7 Type 2 diabetes - Previously well-controlled with A1c 7.6 (08/2024), A1c 7.82 - Continue SSI Seizure disorder - Continue lamotrigine GERD without Esophagitis - He has a history of gastroesophageal reflux disease without esophagitis, and was continued on a proton pump inhibitor. Bilateral Inguinal Hernia, incidental finding on CT - CT imaging revealed bilateral inguinal hernias, larger on the left containing a partial loop of sigmoid colon, without proximal dilatation. - General surgery consult; rec watchful waiting, poor operative candidate for an elective procedurewhile asymptomatic, and has signed off Expected Discharge Location and Transportation: TBD Expected Discharge Expected Discharge Date: 06/27/2025; Expected Discharge Time: VTE Prophylaxis: Pharmacologic VTE prophylaxis orders are present. AM-PAC 6 Clicks Score (PT): 10 (06/29/251999) CODE STATUS: Code Status and Medical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 for left lower extremity cellulitis; he alsohas nonhealing wounds at his buttocks 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 Admitted to [facility] June 13 2023 diagnosis of sepsis per admission notes, left lower extremity cellulitis with pressure injury at buttocks. 06/15/24 Dr Colón saw and recommended amputation; patient refused ; see his note for detail 06/17/23 Dr buenrostro discussed potential options for heel debridement with patient; MRI no osteomyelitis per radiology; taken to OR PROCEDURE: Left 56725: Debridement of skin and subcutaneous tissue 00888: wound vacuum-assisted closure, wound measuring 2.5 cm [...] 07/25/[address] Buenrostro PROCEDURE: Left 86881: Debridement of skin and subcutaneous tissue 11440: Wound vacuum-assisted closure culture data with MRSA/aneta. [...] possible intervention 01/28/24 Dr. 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 Faust in [place] and has seen Dr Oneal (ID in [place]); he is not a good historian with respect to detail. Reports having had some further surgery to the left foot although he is unable to clarify specific date/procedure. Culture at [facility] August 07, 2024 from left foot wound with ESBL Klebsiella pneumoniae and pseudomonas aeruginosa (microbiology lab there reports the Pseudomonas is sensitive to Merrem). He reports his outpatient practitioners had recommended admission to the hospital for IV antibiotics but patient had refused at that time. He also reports that he was in the emergency room at [facility] mid August, no cultures done at that time. Patient reports practitioners at [facility] had recommended higher level amputation but patient has continued to refuse that. He was readmitted to [facility] on August 31, 2024 with worsening odor/drainage andredness/pain to the left lower extremity in recent days/weeks. He reports having been taking outpatient Levaquin; prior history MRSA/PSA and ESBL organisms 09/04/24 Dr Marcano. Procedure/CPT?? Codes: RIGHT SEWING SUPERVISOR access - ultrasound guided Aortogram with LEFT lower extremity run-off LEFT PT angioplasty ([id number] Nanocross) LEFT plantar angioplasty ([id number] Nanocross, 2.0t091wl UltraverseRx) LEFT AT angioplasty (6a870kb Nanocross, 2.5b023vl UltraverseRx) LEFT DP angioplasty (0w684dy Nanocross, 2.3k931vs UltraverseRx) RIGHT SEWING SUPERVISOR closure (Angioseal) 09/07/24 Dr Marcano Procedure/CPT?? Codes: RIGHT SEWING SUPERVISOR access - ultrasound guided Aortogram with LEFT lower extremity run-off LEFT Pr AVF embolization RIGHT SEWING SUPERVISOR closure 09/09/24 moved to ICU overnight with [...] developed generalized weakness with hematuria with chronic De [place] Santos catheter, worsening redness to the left lower leg and empiric antibiotics reinitiated with daptomycin/Zosyn. Subsequent adjustment to daptomycin/Merrem with concern for mixed culture including ESBL species per microbiology 06/11/25 finished antibiotics as inpatient for UTI and cellulitis Readmitted on June 25, 2025 with reports of increased redness/drainage at the left foot, diarrhea and hematuria with concerns for recurrent UTI, C. Difficile PCR positivity (toxin neg) and left lower extremity infection. Patient reports De Los Santos catheter change in its entirety since readmission. 06/27/25 stool with norovirus, CDiff PCR + (toxin neg), blood culture with enterococcus sp (NOT vanco resistant by PCR), MRSA survellaince + and urine with proteus 06/29/25 vascular team making plans; room air; left lower extremity pain which is dull at present, worse with manipulation, generally better with pain meds and 2 out of 10 in severity. Redness and swelling better Chronic De Los Santos catheter No fevers chills or sweats. No headache photophobia or neck stiffness. No shortness of breath coughor hemoptysis. no flank pain. no hemodynamic stable per [...] LEFT; Surgeon: Cecil Buenrostro Jr., MD; Location: [facility]; Service: Orthopedics; Laterality: Left; ANTERIOR CERVICAL [...] Laterality: Left; Please coordinate with Gautam Patel ([facility]) [phone] who will bring coils LUMBAR DISCECTOMY N/A 05/03/2019 Procedure: THORACIC LAMINECTOMY T11-12; Surgeon: Tyree Tan MD; Location: [facility]; Service: Neurosurgery Pediatric History Patient Parents Not on file Other Topics Concern Not on file Social History Narrative Not on file family history includes Alcohol abuse in his father. Allergies[1] Medication: Current Medications[2] Antibiotics: Anti-Infectives (From admission, onward) Ordered Dose/Rate Route Frequency Start Stop 06/26/25 0831 vancomycin (VANCOCIN) capsule 125 mg Ordering Provider: Duglas Andres MD Placed in Followed by Linked Group 125 mg Oral Weekly 08/01/25 0900 09/19/25 0859 06/26/25 0831 vancomycin (VANCOCIN) capsule 125 mg Ordering Provider: Duglas Andres MD Placed in Followed by Linked Group 125 mg Oral Daily 07/25/25 0900 08/01/25 0859 06/26/25 0831 vancomycin (VANCOCIN) capsule 125 mg Ordering Provider: Duglas Andres MD Placed in Followed by Linked Group 125 mg Oral 2 Times Daily 07/17/25 2100 07/24/25 2059 06/26/25 0831 vancomycin (VANCOCIN) capsule 125 mg Ordering Provider: Duglas Andres MD Placed in Followed by Linked Group 125 mg Oral 3 Times Daily 07/10/25 1600 07/17/25 1559 06/28/25 0724 vancomycin (VANCOCIN) 1,000 mg in sodium chloride 0.9 % 250 mL IVPB-VTB Ordering Provider: Osmany Mccann RPH 1,000 mg 250 mL/hr over 60 Minutes Intravenous Every 12 Hours 06/28/25 0900 07/04/25 2059 06/27/25 0812 Vancomycin HCl 1,250 mg in sodium chloride 0.9 % 250 mL VTB Status: Discontinued Ordering Provider: Osmany Mccann RPH 1,250 mg 200 mL/hr over 75 Minutes Intravenous Every 12 Hours 06/27/25 2100 06/27/25 0813 06/27/25 0813 Vancomycin HCl 1,250 mg in sodium chloride 0.9 % 250 mL VTB Status: Discontinued Ordering Provider: Osmany Mccann RPH 1,250 mg 200 mL/hr over 75 Minutes Intravenous Every 12 Hours 06/27/25 2100 06/28/25 0724 06/27/25 0856 vancomycin 2500 mg/500 mL 0.9% NS IVPB ([facility]) Ordering Provider: Osmany Mccann RPH 2,500 mg over 150 Minutes Intravenous Once 06/27/25 0945 06/27/25 1150 06/27/25 0808 vancomycin 2250 mg/500 mL 0.9% NS IVPB ([facility]) Status: Discontinued Ordering Provider: Siobhan, Osmany H, RPH 2,250 mg over 135 Minutes Intravenous Once 06/27/25 0900 06/27/25 0856 06/27/25 0739 Pharmacy to dose vancomycin Ordering Provider: Duglas Andres MD Not Applicable Continuous PRN 06/27/25 0739 07/04/25 0738 06/25/25 2312 DAPTOmycin (CUBICIN) 550 mg in sodium chloride 0.9 % 50 mL IVPB Status: Discontinued Ordering Provider: Amanda Bermudez MD 6 mg/kg ?? 94.6 kg (Adjusted) 100 mL/hr over 30 Minutes Intravenous Every 24 Hours 06/26/25 2100 06/27/25 0739 06/26/25 0847 meropenem (MERREM) 500 mg in sodium chloride 0.9 % 100 mL MBP Ordering Provider: Duglas Andres MD 500 mg over 3 Hours Intravenous Every 6 Hours 06/26/25 1600 07/06/25 1559 06/25/25 2303 piperacillin-tazobactam (ZOSYN) 4.5 g IVPB in 100 mL NS MBP (CD) Status: Discontinued Ordering Provider: Amanda Bermudez MD 4.5 g over 4 Hours Intravenous Every 8 Hours 06/26/25 1200 06/26/25 0846 06/26/25 0831 vancomycin (VANCOCIN) capsule 125 mg Ordering Provider: Duglas Andres MD Placed in [facility] 125 mg Oral 4 Times Daily 06/26/25 1200 07/10/25 1159 06/26/25 0847 meropenem (MERREM) 500 mg in sodium chloride 0.9 % 100 mL MBP Ordering Provider: Duglas Andres MD 500 mg over 30 Minutes Intravenous Once 06/26/25 0945 06/26/25 1047 06/26/25 0833 micafungin sodium (MYCAMINE) 100 mg in sodium chloride 0.9 % 100 mL MBP Ordering Provider: Duglas Andres MD 100 mg Intravenous Once 06/26/25 0930 06/26/25 0850 06/26/25 0113 methenamine (HIPREX) tablet 1 g Ordering Provider: Amanda Bermudez MD 1 g Oral 2 Times Daily With Meals 06/26/25 0800 06/25/25 2303 piperacillin-tazobactam (ZOSYN) 3.375 g IVPB in 100 mL NS MBP (CD) Status: Discontinued Ordering Provider: Amanda Bermudez MD 3.375 g over 30 Minutes Intravenous Once 06/26/2559906/25/25231106/25/252311 piperacillin-tazobactam (ZOSYN) 4.5 g IVPB in 100 mL NS MBP (CD) Ordering Provider: Amanda Bermudez MD 4.5 g over 30 Minutes Intravenous Once 06/26/2559906/26/2559906/25/252111 DAPTOmycin (CUBICIN) 550 mg in sodium chloride 0.9 % 50 mL IVPB Ordering Provider: Ally Jeffers APRN 6 mg/kg ?? 94.6 kg (Adjusted) 100 mL/hr over 30 Minutes Intravenous Once 06/25/25212706/25/25230606/25/252111 meropenem (MERREM) 1,000 mg in sodium chloride 0.9 % 100 mL MBP Ordering Provider: Ally Jeffers V DIABETES NURSE 1,000 mg over 30 Minutes Intravenous Once 06/25/25212706/25/252236 Review of Systems 06/29/25 Constitutional-- No Fever, chills or sweats. Appetite good, and no malaise. No fatigue. Heent-- No new vision, hearing or throat complaints. No epistaxis or oral sores. Denies odynophagiaor dysphagia. No flashers, floaters or eye pain. No odynophagia or dysphagia. No headache, photophobia or neck stiffness. CV-- No chest pain, palpitation or syncope Resp-- No SOB/cough/Hemoptysis GI- No hematochezia, melena, or hematemesis. Denies jaundice or chronic liver disease. -- chronic De Los Santos catheter, denies flank pain Lymph- no swollen lymph nodes in neck/axilla or groin. Heme- No active bruising or bleeding; no Hx of DVT or PE. MS-- no swelling or pain in the bones or joints of arms/legs. No new back pain. Neuro-- No acute focal weakness or numbness in the arms or legs. Chronically debilitated Full 12 point review of systems reviewed and negative otherwise for acute complaints, except for above Physical Exam: Vital Signs BP 132/67 (BP Location: Right arm, Patient Position: Lying) Pulse 86 Temp 98 ??F (36.7 ??C) (Oral) Resp 18 Ht 182.9 cm (72 ) Wt 117 kg (257 lb 4.4 oz) SpO2 96% BMI 34.89 kg/m?? GENERAL: Awake and alert, in no acute distress. Chronically ill HEENT: Normocephalic, atraumatic. No conjunctival injection. No [...] mass or HSM. EXT: see below : Genitalia generally unremarkable. With De [place] Santos catheter. MSK: FROM without joint effusions noted arms/legs. SKIN: Warm and dry without cutaneous eruptions on Inspection/palpation. NEURO: Oriented to PPT. He has difficult time cooperate with a detailed motor/sensory exam Left foot amputation noted with wounds and adherent slough type material but unable to express any purulence and depth unclear. No probed to bone at present. Vague erythema from mid burrell to foot withsome white scale but no discrete mass bulge or fluctuance. No crepitus or bulla Right side amputation no obvious open wound or new redness/induration Laboratory Data Results from last 7 days Lab Units 06/29/25 0623 06/27/25 0400 06/26/25 0740 WBC 10*3/mm3 7.30 9.98 9.69 HEMOGLOBIN g/dL 9.0* 9.4* 8.8* HEMATOCRIT % 29.2* 30.4* 29.3* PLATELETS 10*3/mm3 289 274 271 Results from last 7 days Lab Units 06/29/25 0624 SODIUM mmol/L 138 POTASSIUM mmol/L 4.5 CHLORIDE mmol/L 106 CO2 mmol/L 21.9* BUN mg/dL 11.4 CREATININE mg/dL 0.89 GLUCOSE mg/dL 175* CALCIUM mg/dL 8.5* Results from last 7 days Lab Units 06/26/25 0741 ALK PHOS U/L 116 BILIRUBIN mg/dL 0.2 ALT (SGPT) U/L 13 AST (SGOT) U/L 15 Results from last 7 days Lab Units 06/25/25 1817 CRP mg/dL 4.34* Estimated Creatinine Clearance: 100.6 mL/min (by C-G formula based on SCr of 0.89 mg/dL). Microbiology: Radiology: Imaging Results (Last 72 Hours) Procedure Component Value Units Date/Time MRI Foot Left Without Contrast [[id number]] Collected: 06/26/252153 Updated: 06/26/252210 Narrative: MRI FOOT LEFT WO CONTRAST Date of Exam: 06/26/2025 8:12 PM EDT Indication: Assess for osteomyelitis. Status post amputation. Wound in stump. Comparison: Left foot radiographs 06/25/2025, left foot MRI 01/15/2024 Technique: Routine multiplanar/multisequence sequence images of the left foot were obtained withoutcontrast administration. Findings: There is a nondisplaced intra-articular fracture across the distal tibia with associated marrow edema. This may be acute to subacute. Posterior and plantar calcaneal enthesophytes are present. There is distal Achilles tendinopathy with increased signal in the substance of the tendon. As seen radiographically, the patient is status post transmetatarsal amputation at the level of the metatarsal diaphyses. Within the distal first and second metatarsal diaphyses at the resection margins, there is some edema noted on the T1 and T2 weighted images, and as such, osteomyelitis is not excluded. No other changes of potential osteomyelitis are identified. There is diffuse soft tissue edema and skin thi ckening about the remaining foot, particularly along the dorsal side and distally at the stump compatible with cellulitis. Edema extends throughout the subcutaneous tissues on the dorsum of the foot and in the stump. No definite abscess is seen allowing for the lack of contrast. Impression: 1.Status post transmetatarsal amputation at the level of the metatarsal diaphyses. There is some edema in the distal first and second metatarsal diaphyses at the resection margins, and as such, osteomyelitis is not excluded. 2.Diffuse soft tissue edema and skin thickening about the remaining foot, particularly along the dorsal side and distally at the stump compatible with cellulitis. No definite abscess is seen allowingfor the lack of contrast. 3.Nondisplaced intra-articular fracture of the distal tibia with associated marrow edema. This may be acute to subacute. 4.Distal Achilles tendinopathy. Electronically Signed: Brent Lubin MD 06/26/2025 10:08 PM EDT Workstation ID: [id number] Impression: --acute left lower leg/foot cellulitis and wound infection, prior culture July 2024 with ESBL Klebsiella pneumoniae and pseudomonas aeruginosa, pseudomonas was sensitive to Merrem per microbiology lab at [facility]. Cx at [facility] as below; He has had multiple surgeries and multiple p ractitioners recommend higher level amputation which he has refused. On prior admissions, he has refused outpatient IV antibiotics and he has refused placement for longer durations of IV antibiotics.This refusal of care has placed him at increased risk for poor outcome. Earlier in 2024 he was discharged to the care of Dr. Oneal, his outpatient ID doctor and Dr Faust his automobile travel club counselor for furthercare/workup ; readmission May 2025 and June 2025 with acute worsening in redness/drainage to left lower extremity. High risk for further serious morbidity and other serious sequela includingpersistent/recurrent or nonhealing wounds, persistent/progressive or recurrent infection and risk for further functional/limb loss, higher-level amputation and other dire consequences including sepsis/mortalityetc. he remains opposed to amputation; he voices understanding his poor prognosis overallincluding risks for dire consequences; past Cx with MRSA/PSA/ESBL at prior admissions; culture June 02, 2025 with Proteus/MRSA/PSA; Cx June 2025 pending; further imaging no definitive osteomyelitis but also unable to exclude per radiology at distal first/second MT --GPC bacteremia, E Faecium; NOT vanco resistant; risk for dapto resistance with prior daptomycin; ?foot source -v- other --Acute hematuria/UTI with chronic indwelling De [place] Santos catheter. Proteus in culture so far; nursing reports De Los Santos catheter has been changed since admission; urology evaluation for further consideration of cystoscopy versus SP catheter or other; urine microscopic with yeast and potential for yeast colon ization/contaminant but also potential for evolving invasive candidiasis. Follow-up on culture data, blood catheter has been changed as above and empiric antibiotics. Mycamine IV ??1 06/26 --Acute diarrhea, Norovirus + and C. Difficile PCR +, although toxin antigen negative. He has risk for active disease and does have symptomatology and requires antibiotics for other processes, and therefore oral vancomycin added although unable to definitively confirm active disease with toxin antigen negative ( although risk for false negative); supportive care ongoing --MRSA surveillance + --Peripheral arterial disease by past evaluation of vascular team in addition to history DVT. 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 --Hx QTc > 500 ms on prior EKG PLAN: --IV vancomycin//merrem, oral vancomycin --mycamine x 1 06/26 wound culture June 02, 2025 with Proteus /MRSA, PSA urine culture June 02, 2025 E Coli/ESBL Proteus urine culture 06/25 proteus, MURRAY pending blood culture 06/25 E Faecium vanco/amp sensitive; dapto sens but dose dependent wound culture 06/25 (surface) with MRSA and ESBL proteus and morganella -Dr Marcano with plans for further debridement which should help give additional information regarding extent of disease at foot --Check/review labs cultures and scans --Partial history Per nursing staff --d/w Dr Marcano/Dr Santillan/multidisciplinary team with respect to complexity above/below and [...] caregivers regarding antimicrobial stewardship and antibiotic resistance. Managed infection control protocol. Duglas Andres MD 06/29/2025 [1] Allergies Allergen Reactions Keppra [Levetiracetam] Other (See Comments) Acute psychosis Bupropion Unknown (See Comments) Codeine Nausea Only Hydrocodone Unknown (See Comments) Ketorolac Tromethamine Unknown (See Comments) [2] Current Facility-Administered Medications Medication Dose Route Frequency Provider Last Rate Last Admin acetaminophen (TYLENOL) tablet 650 mg 650 mg Oral Q4H PRN Amanda Bermudez MD 650 mg at 06/29/25 0343 Or acetaminophen (TYLENOL) 160 MG/5ML oral solution 650 mg 650 mg Oral Q4H PRN Amanda Bermudez MD Or acetaminophen (TYLENOL) suppository 650 mg 650 mg Rectal Q4H PRN Amanda Bermudez MD aluminum-magnesium hydroxide-simethicone (MAALOX MAX) 400-400-40 MG/5ML suspension 15 mL 15 mL [id number] PRN Amanda Bermudez MD [Held by provider] apixaban (ELIQUIS) tablet 5 mg 5 mg Oral BID Amanda Bermudez MD ascorbic acid (VITAMIN C) tablet 500 mg 500 mg Oral Daily Amanda Bermudez MD 500 mg at 06/28/25 0900 baclofen (LIORESAL) tablet 10 mg 10 mg Oral Q12H Amanda Bermudez MD 10 mg at 06/28/25 2140 sennosides-docusate (PERICOLACE) 8.6-50 MG per tablet 2 tablet 2 tablet Oral BID PRN Amanda Bermudez MD And polyethylene glycol (MIRALAX) packet 17 g 17 g Oral Daily PRN Amanda Bermudez MD And bisacodyl (DULCOLAX) EC tablet 5 mg 5 mg Oral Daily PRN Amanda Bermudez MD And bisacodyl (DULCOLAX) suppository 10 mg 10 mg Rectal Daily PRN Amanda Bermudez MD Calcium Replacement - Follow Nurse / BPA Driven Protocol Not Applicable PRN Amanda Bermudez MD carvedilol (COREG) tablet 3.125 mg 3.125 mg Oral BID With Meals Amanda Bermudez MD 3.125 mg at 06/28/25 1721 clopidogrel (PLAVIX) tablet 75 mg 75 mg Oral Daily Amanda Bermudez MD 75 mg at 06/28/25 0900 famotidine (PEPCID) tablet 20 mg 20 mg Oral BID Arnoldo Ca PharmD 20 mg at 06/28/25 1721 finasteride (PROSCAR) tablet 5 mg 5 mg Oral Daily Amanda Bermudez MD 5 mg at 06/28/25 0900 folic acid (FOLVITE) tablet 1 mg 1 mg Oral Daily Amanda Bermudez MD 1 mg at 06/28/25 0900 gabapentin (NEURONTIN) capsule 200 mg 200 mg Oral Q8H Amanda Bermudez MD 200 mg at 06/29/25 0533 heparin (porcine) 5000 UNIT/ML injection 5,000 Units 5,000 Units Subcutaneous Q8H Lupe Albert APRN 5,000 Units at 06/29/25 0533 insulin glargine (LANTUS, SEMGLEE) injection 56 Units 56 Units Subcutaneous Nightly Amanda Bermudez MD 56 Units at 06/28/25 2139 ipratropium-albuterol (DUO-NEB) nebulizer solution 3 mL 3 mL Nebulization Q6H PRN Amanda Bermudez MD lamoTRIgine (LaMICtal) tablet 100 mg 100 mg Oral Daily Amanda Bermudez MD 100 mg at 06/28/25 0900 lamoTRIgine (LaMICtal) tablet 250 mg 250 mg Oral Nightly Amanda Bermudez MD 250 mg at 06/28/25 2140 Magnesium Cardiology Dose Replacement - Follow Nurse / BPA Driven Protocol Not Applicable PRN Amanda Bermudez MD meropenem (MERREM) 500 mg in sodium chloride 0.9 % 100 mL MBP 500 mg Intravenous Q6H Duglas Andres MD 500 mg at 06/29/25 0533 methenamine (HIPREX) tablet 1 g 1 g Oral BID With Meals Amanda eBrmudez MD 1 g at 06/28/25 1721 multivitamin with minerals 1 tablet 1 tablet Oral Daily Amanda Bermudez MD 1 tablet at 06/28/25 0900 naloxone (NARCAN) injection 0.4 mg 0.4 mg Intravenous Q5 Min PRN Amanda Bermudez MD nitroglycerin (NITROSTAT) SL tablet 0.4 mg 0.4 mg Sublingual Q5 Min PRN Amanda Bermudez MD ondansetron (ZOFRAN) injection 4 mg 4 mg Intravenous Q6H PRN Amanda Bermudez MD oxyCODONE-acetaminophen (PERCOCET) 7.5-325 MG per tablet 1 tablet 1 tablet Oral Q6H PRN Milena Jo APRN 1 tablet at 06/28/25 1721 Pharmacy to dose vancomycin Not Applicable Continuous PRN Duglas Andres MD Phosphorus Replacement - Follow Nurse / BPA Driven Protocol Not Applicable PRN Amanda Bermudez MD Potassium Replacement - Follow Nurse / BPA Driven Protocol Not Applicable PRN Amanda Bermudez MD sacubitril-valsartan (ENTRESTO) 24-26 MG tablet 1 tablet 1 tablet Oral BID Amanda Bermudez MD 1 tablet at 06/28/25 2139 sodium chloride 0.9 % flush 10 mL 10 mL Intravenous PRN Ally Jeffers V, DIABETES NURSE sodium chloride 0.9 % flush 10 mL 10 mL Intravenous Q12H Amanda Bermudez MD 10 mL at 06/28/25 0941 sodium chloride 0.9 % flush 10 mL 10 mL Intravenous PRN Amanda Bermudez MD sodium chloride 0.9 % flush 10 mL 10 mL Intravenous Q12H Duglas Andres MD sodium chloride 0.9 % flush 10 mL 10 mL Intravenous PRN Duglas Andres MD sodium chloride 0.9 % flush 20 mL 20 mL Intravenous PRN Duglas Andres MD sodium chloride 0.9 % infusion 40 mL 40 mL Intravenous PRN Duglas Andres MD vancomycin (VANCOCIN) 1,000 mg in sodium chloride 0.9 % 250 mL IVPB-VTB 1,000 mg Intravenous Q12H Osmany Mccann, [facility] 250 mL/hr at 06/28/25 2138 1,000 mg at 06/28/25 2138 vancomycin (VANCOCIN) capsule 125 mg 125 mg Oral 4x Daily Duglas Andres MD 125 mg at Followed by [START ON 07/10/2025] vancomycin (VANCOCIN) capsule 125 mg 125 mg Oral TID Duglas Andres MD Followed by [START ON 07/17/2025] vancomycin (VANCOCIN) capsule 125 mg 125 mg Oral BID Duglas Andres MD Followed by [START ON 07/25/2025] vancomycin (VANCOCIN) capsule 125 mg 125 mg Oral Daily Duglas Andres MD Followed by [START ON 08/01/2025] vancomycin (VANCOCIN) capsule 125 mg 125 mg Oral Weekly Duglas Andres MD * Sandro MilenaIZABELLA - 06/28/2025 12:55 PM EDT Images from the original note were not included. [facility] Medicine Services PROGRESS NOTE Patient Name: Trung Pool : [id number] Date of Admission: 06/25/2025 Primary Care Physician: Gustavo Mehta MD Subjective Subjective CC: Follow-up sepsis HPI: Pt resting in bed. He was asking who would be performing his surgery and I told him likely Dr Marcano. He reports LLE pain 03/22. He had a BM this morning. Pt reports he has had a F/C for about 1 year. 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, Left transmetatarsal amputation with dsg intact Psychiatric: Appropriate affect, cooperative Neurologic: Oriented x 3, strength symmetric in all extremities, Cranial Nerves grossly intact to confrontation, speech clear Skin: No rashes to exposed skin Results Reviewed: LAB RESULTS: Lab 06/27/25 0400 06/26/25 0741 06/26/25 0740 06/25/25 1817 WBC 9.98 -- 9.69 9.96 HEMOGLOBIN 9.4* -- 8.8* 8.9* HEMATOCRIT 30.4* -- 29.3* 29.8* PLATELETS 274 -- 271 281 NEUTROS ABS 6.79 -- 6.58 7.05* IMMATURE GRANS (ABS) 0.04 -- 0.04 0.05 LYMPHS ABS 1.79 -- 1.77 1.48 MONOS ABS 0.83 -- 0.80 1.01* EOS ABS 0.47* -- 0.43* 0.32 MCV 77.4* -- 77.5* 76.2* CRP -- -- -- 4.34* PROCALCITONIN -- -- -- 0.12 LACTATE -- 1.2 -- 1.7 PROTIME -- 16.7* -- -- Lab 06/28/25 0400 06/27/25 0400 06/26/25 0741 06/25/25 1817 SODIUM 140 139 142 138 POTASSIUM 4.6 4.3 3.7 4.4 CHLORIDE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 Discontinued Ordering Provider: Osmany Mccann RPH 2,250 mg over 135 Minutes Intravenous Once 06/27/25 0900 06/27/25 0856 06/27/25 0739 Pharmacy to dose vancomycin Ordering Provider: Duglas Andres MD Not Applicable Continuous PRN 06/27/25 0739 07/04/25 0738 06/25/25 2312 DAPTOmycin (CUBICIN) 550 mg in sodium chloride 0.9 % 50 mL IVPB Status: Discontinued Ordering Provider: Amanda Bermudez MD 6 mg/kg ?? 94.6 kg (Adjusted) 100 mL/hr over 30 Minutes Intravenous Every 24 Hours 06/26/25 2100 06/27/25 0739 06/26/25 0847 meropenem (MERREM) 500 mg in sodium chloride 0.9 % 100 mL MBP Ordering Provider: Duglas Andres MD 500 mg over 3 Hours Intravenous Every 6 Hours 06/26/25 1600 07/06/25 1559 06/25/25 2303 piperacillin-tazobactam (ZOSYN) 4.5 g IVPB in 100 mL NS MBP (CD) Status: Discontinued Ordering Provider: Amanda Bermudez MD 4.5 g over 4 Hours Intravenous Every 8 Hours 06/26/25 1200 06/26/25 0846 06/26/25 0831 vancomycin (VANCOCIN) capsule 125 mg Ordering Provider: Duglas Andres MD Placed in Followed by Linked Group 125 mg Oral 4 Times Daily 06/26/25 1200 07/10/25 1159 06/26/25 0847 meropenem (MERREM) 500 mg in sodium chloride 0.9 % 100 mL MBP Ordering Provider: Duglas Andres MD 500 mg over 30 Minutes Intravenous Once 06/26/25 0945 06/26/25 1047 06/26/25 0833 micafungin sodium (MYCAMINE) 100 mg in sodium chloride 0.9 % 100 mL MBP Ordering Provider: Duglas Andres MD 100 mg Intravenous Once 06/26/25 0930 06/26/25 0850 06/26/25 0113 methenamine (HIPREX) tablet 1 g Ordering Provider: Amanda Bermudez MD 1 g Oral 2 Times Daily With Meals 06/26/25 0800 06/25/25 230 piperacillin-tazobactam (ZOSYN) 3.375 g IVPB in 100 mL NS MBP (CD) Status: Discontinued Ordering Provider: Amanda Bermudez MD 3.375 g over 30 Minutes Intravenous Once 06/26/25 0600 06/25/25 2312 06/25/25 231 piperacillin-tazobactam (ZOSYN) 4.5 g IVPB in 100 mL NS MBP (CD) Ordering Provider: Amanda Bermudez MD 4.5 g over 30 Minutes Intravenous Once 06/26/25 0600 06/26/25 0600 06/25/252111 DAPTOmycin (CUBICIN) 550 mg in sodium chloride 0.9 % 50 mL IVPB Ordering Provider: Ally Jeffers APRN 6 mg/kg ?? 94.6 kg (Adjusted) 100 mL/hr over 30 Minutes Intravenous Once 06/25/258 06/25/25 2307 06/25/252111 meropenem (MERREM) 1,000 mg in sodium chloride 0.9 % 100 mL MBP Ordering Provider: Ally Jeffers APRN 1,000 mg over 30 Minutes Intravenous Once 06/25/25212706/25/252236 Review of Systems 06/28/25 Constitutional-- No Fever, chills or sweats. Appetite good, and no malaise. No fatigue. Heent-- No new vision, hearing or throat complaints. No epistaxis or oral sores. Denies odynophagiaor dysphagia. No flashers, floaters or eye pain. No odynophagia or dysphagia. No headache, photophobia or neck stiffness. CV-- No chest pain, palpitation or syncope Resp-- No SOB/cough/Hemoptysis GI- No hematochezia, melena, or hematemesis. Denies jaundice or chronic liver disease. -- chronic De Los Santos catheter, denies flank pain Lymph- no swollen lymph nodes in neck/axilla or groin. Heme- No active bruising or bleeding; no Hx of DVT or PE. MS-- no swelling or pain in the bones or joints of arms/legs. No new back pain. Neuro-- No acute focal weakness or numbness in the arms or legs. Chronically debilitated Full 12 point review of systems reviewed and negative otherwise for acute complaints, except for above Physical Exam: Vital Signs BP 130/77 (BP Location: Left arm, Patient Position: Lying) Pulse 77 Temp 97.9 ??F (36.6 ??C) (Oral) Resp 18 Ht 182.9 cm (72 ) Wt 116 kg (255 lb 8 oz) SpO2 96% BMI 34.65 kg/m?? GENERAL: Awake and alert, in no acute distress. Chronically ill HEENT: Normocephalic, atraumatic. No conjunctival injection. No [...] mass or HSM. EXT: see below : Genitalia generally unremarkable. With De Los Santos catheter. MSK: FROM without joint effusions noted arms/legs. SKIN: Warm and dry without cutaneous eruptions on Inspection/palpation. NEURO: Oriented to PPT. He has difficult time cooperate with a detailed motor/sensory exam Left foot amputation noted with wounds and adherent slough type material but unable to express any purulence and depth unclear. No probed to bone at present. Vague erythema from mid burrell to foot withsome white scale but no discrete mass bulge or fluctuance. No crepitus or bulla Right side amputation no obvious open wound or new redness/induration Laboratory Data Results from last 7 days Lab Units 06/27/25 0400 06/26/25 0740 06/25/25 1817 WBC 10*3/mm3 9.98 9.69 9.96 HEMOGLOBIN g/dL 9.4* 8.8* 8.9* HEMATOCRIT % 30.4* 29.3* 29.8* PLATELETS 10*3/mm3 274 271 281 Results from last 7 days Lab Units 06/28/25 0400 SODIUM mmol/L 140 POTASSIUM mmol/L 4.6 CHLORIDE mmol/L 111* CO2 mmol/L 21.7* BUN mg/dL 11.0 CREATININE mg/dL 0.79 GLUCOSE mg/dL 125* CALCIUM mg/dL 8.2* Results from last 7 days Lab Units 06/26/25 0741 ALK PHOS U/L 116 BILIRUBIN mg/dL 0.2 ALT (SGPT) U/L 13 AST (SGOT) U/L 15 Results from last 7 days Lab Units 06/25/25 1817 CRP mg/dL 4.34* Estimated Creatinine Clearance: 112.8 mL/min (by C-G formula based on SCr of 0.79 mg/dL). Microbiology: Radiology: Imaging Results (Last 72 Hours) Procedure Component Value Units Date/Time MRI Foot Left Without Contrast [[id number]] Collected: 06/26/252153 Updated: 06/26/252210 Narrative: MRI FOOT LEFT WO CONTRAST Date of Exam: 06/26/2025 8:12 PM EDT Indication: Assess for osteomyelitis. Status post amputation. Wound in stump. Comparison: Left foot radiographs 06/25/2025, left foot MRI 01/15/2024 Technique: Routine multiplanar/multisequence sequence images of the left foot were obtained withoutcontrast administration. Findings: There is a nondisplaced intra-articular fracture across the distal tibia with associated marrow edema. This may be acute to subacute. Posterior and plantar calcaneal enthesophytes are present. There is distal Achilles tendinopathy with increased signal in the substance of the tendon. As seen radiographically, the patient is status post transmetatarsal amputation at the level of the metatarsal diaphyses. Within the distal first and second metatarsal diaphyses at the resection margins, there is some edema noted on the T1 and T2 weighted images, and as such, osteomyelitis is not excluded. No other changes of potential osteomyelitis are identified. There is diffuse soft tissue edema and skin thi ckening about the remaining foot, particularly along the dorsal side and distally at the stump compatible with cellulitis. Edema extends throughout the subcutaneous tissues on the dorsum of the foot and in the stump. No definite abscess is seen allowing for the lack of contrast. Impression: 1.Status post transmetatarsal amputation at the level of the metatarsal diaphyses. There is some edema in the distal first and second metatarsal diaphyses at the resection margins, and as such, osteomyelitis is not excluded. 2.Diffuse soft tissue edema and skin thickening about the remaining foot, particularly along the dorsal side and distally at the stump compatible with cellulitis. No definite abscess is seen allowingfor the lack of contrast. 3.Nondisplaced intra-articular fracture of the distal tibia with associated marrow edema. This may be acute to subacute. 4.Distal Achilles tendinopathy. Electronically Signed: Brent Lubin MD 06/26/2025 10:08 PM EDT Workstation ID: [id number] CT Angiogram Lower Extremity Left [[id number]] Collected: 06/26/25 0500 Updated: 06/26/25 0511 Narrative: CT ANGIOGRAM LOWER EXTREMITY LEFT Date of Exam: 06/26/2025 4:18 AM EDT Indication: Left leg limb ischemia. Comparison: Correlation with CT abdomen and pelvis 06/25/2025. Technique: CTA of the left lower extremity was performed before and after the uneventful intravenous administration of iodinated contrast. Reconstructed coronal and sagittal images were also obtained. In addition, a 3-D volume rendered image was created for interpretation. Automated exposure control and iterative reconstruction methods were used. Findings: CT angiography: There is moderate disease in the visualized aorta above the bifurcation. There is mild nonstenosing disease in the common iliac arteries. There is mild nonstenosing disease in the external iliac arteries and similar mild disease present in the internal iliac arteries. Right lower extremity: Patient is status post [id number] amputation. There is mild disease in the SEWING SUPERVISOR and SFA. The PFA is occluded proximally with reconstitution. There is moderate segmental stenosing disease in the remainder of the SFA. Left lower extremity: Minimal SEWING SUPERVISOR disease. PFA is patent. There is mild SFA disease with moderate focal narrowing at the junction of the SFA and popliteal artery. The [id number] popliteal artery appears otherwise widely patent. There is mild below the knee popliteal artery disease. There appears to be embolization of the peroneal artery. Patency of the anterior and posterior tibial arteries is difficult to assess due to significant venous contamination and heavy calcification. Definite runoff into the left foot is seen in the posterior tibial artery. 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 Nonvascular findings: There is severe diffuse atrophy in the left lower extremity musculature particularly below the knee. The bones are markedly demineralized in the left foreleg. There is muscular atrophy in the right thigh. There is a moderate sized fat and sigmoid colon containing left inguinalhernia and a small fat-containing right inguinal hernia. There is marked urinary bladder wall thickening. IVC filter is partially seen and discussed on previous reports. The appendix is normal. Thereis no pelvic ascites. No acute osseous abnormality. There are moderate to severe lower lumbar degenerative changes. Impression: Impression: 1.There is mild disease in the left lower extremity with moderate focal narrowing at the junction of the SFA and popliteal artery. There appears to be embolization of the left left peroneal artery. Patency of the anterior and posterior tibial arteries is difficult to assess due to significant venous contamination and heavy calcification. Definite runoff into the left foot is seen in the posterior tibial artery. 2.Status post right [id number] amputation. There is occlusion of the proximal right PFA with reconstitution. 3.Severe diffuse atrophy in the left lower extremity musculature. 4.Moderate sized fat and sigmoid colon containing left inguinal hernia and small fat-containing right inguinal hernia. 5.Marked urinary bladder wall thickening. Correlate for cystitis. Electronically Signed: Hussain Lyles MD 06/26/2025 5:08 AM EDT Workstation ID: [id number] XR Chest 1 View [[id number]] Collected: 06/26/25411 Updated: 06/26/25415 Narrative: XR CHEST 1 VW Date of Exam: 06/26/2025 3:07 AM EDT Indication: cough. Comparison: 06/02/2025 Findings: Cardiomegaly is stable. Pulmonary vascularity is normal. There is atherosclerotic disease in the aorta. Mild right basilar atelectasis may be present. Lungs are otherwise clear. No pneumothorax. There is degenerative disease in the shoulders. Impression: Cardiomegaly with possible mild right basilar atelectasis. Electronically Signed: Brent Lubin MD 06/26/2025 4:13 AM EDT Workstation ID: [id number] CT Abdomen Pelvis With Contrast [[id number]] Collected: 06/25/251937 Updated: 06/25/252155 Addenda: ADDENDUM #1 IVC filter is present on imaging study. It is recommended that all patients with IVC filters in place have an active management care plan to monitor their IVC filter. If a care plan is not in place, patient should have a non emergent referral to an interventional specialist such as interventional radiology or other interventional vascular specialist for establishment of an IVC filter management care plan. Electronically Signed: Nehemias Ferraro 06/25/2025 9:53 PM EDT Workstation ID: [id number] ORIGINAL REPORT: CT ABDOMEN PELVIS W CONTRAST Date of Exam: 06/25/2025 7:05 PM EDT Indication: Diarrhea, hematuria, abdominal discomfort. Comparison: 06/02/2025 Technique: Axial CT images were obtained of the abdomen and pelvis following the uneventful intravenous administration of iodinated contrast. Reconstructed coronal and sagittal images were also obtained. Automated exposure control and iterative construction methods were used. Findings: Calcific atherosclerosis of the coronary arteries. No pleural or pericardial effusion. No suspicious infiltrate in the lower lungs. No definite ectopic bowel gas. No splenomegaly or suspicious splenic lesion. No suspicious hepatic abnormality. No definite acute biliary abnormality. No suspicious splenic or pancreatic abnormality. Aorta appears normal in caliber. There is calcific atherosclerosis of the aorta and branch vessels. IVC filter is present, as before. Lymph nodes do not appear significantly enlarged. Probable small bilateral upper pole renal cysts. There is expected excretion of contrast from the kidneys. No hydronephrosis. No dilated small bowel loops. No definite acute gastric abnormality. Small fat-containing umbilical hernia. There are bilateral inguinal hernias. Smaller right inguinal hernia contains fat. Larger left inguinal hernia contains a partial loop of sigmoid colon. No proximal dilatation. The appendix appears within normal limits. No definite findings of acute colonic inflammation. The bladder is moderately distended. Small amount of gas is present in the bladder, as before. Bladder wall thickening appears mildly decreased since the prior exam. Prostate does not appear significantly enlarged. De Los Santos catheter balloon and tip appears to terminate in the proximal penile urethra. There is some questionable wall thickening of the distal rectum. No other definite perirectal abnormality. There appears to be mild asymmetric prominence of the left inguinal lymph nodes. Severe left and moderate right hip osteoarthritis. Advanced degenerative changes in the lumbar spine. Mild chronic T11 and T12 height loss, as before. There is ankylosis at the sacroiliac joints. No visualized aggressive osseous lesion. Impression: 1.De Los Santos catheter balloon and tip appear to terminate in the proximal penile urethra. Recommend repositioning. 2.Moderate distention of the bladder with small amount of gas in the bladder, as before. Bladder wall thickening appears mildly decreased since the prior exam. Correlate with urinalysis. 3.Questionable wall thickening of the distal rectum. Correlate for symptoms of proctitis. 4.Bilateral inguinal hernias, larger on the left containing a partial loop of sigmoid colon. No proximal dilatation. 5.Mild asymmetric prominence of the left inguinal lymph nodes, likely reactive. Clinical follow-up recommended. 6.Calcific atherosclerosis. The ordering provider was notified of the results by Dr. Ferraro at 06/25/2025 7:54 PM EDT. Electronically Signed: Nehemias Ferraro 06/25/2025 7:55 PM EDT Workstation ID: [id number] Signed: 06/25/25 2153 by Nehemias Ferraro MD Narrative: CT ABDOMEN PELVIS W CONTRAST Date of Exam: 06/25/2025 7:05 PM EDT Indication: Diarrhea, hematuria, abdominal discomfort. Comparison: 06/02/2025 Technique: Axial CT images were obtained of the abdomen and pelvis following the uneventful intravenous administration of iodinated contrast. Reconstructed coronal and sagittal images were also obtained. Automated exposure control and iterative construction methods were used. Findings: Calcific atherosclerosis of the coronary arteries. No pleural or pericardial effusion. No suspicious infiltrate in the lower lungs. No definite ectopic bowel gas. No splenomegaly or suspicious splenic lesion. No suspicious hepatic abnormality. No definite acute biliary abnormality. No suspicious splenic or pancreatic abnormality. Aorta appears normal in caliber. There is calcific atherosclerosis of the aorta and branch vessels. IVC filter is present, as before. Lymph nodes do not appear significantly enlarged. Probable small bilateral upper pole renal cysts. There is expected excretion of contrast from the kidneys. No hydronephrosis. No dilated small bowel loops. No definite acute gastric abnormality. Small fat-containing umbilical hernia. There are bilateral inguinal hernias. Smaller right inguinal hernia contains fat. Larger left inguinal hernia contains a partial loop of sigmoid colon. No proximal dilatation. The appendix appears within normal limits. No definite findings of acute colonic inflammation. The bladder is moderately distended. Small amount of gas is present in the bladder, as before. Bladder wall thickening appears mildly decreased since the prior exam. Prostate does not appear significantly enlarged. De Los Santos catheter balloon and tip appears to terminate in the proximal penile urethra. There is some questionable wall thickening of the distal rectum. No other definite perirectal abnormality. There appears to be mild asymmetric prominence of the left inguinal lymph nodes. Severe left and moderate right hip osteoarthritis. Advanced degenerative changes in the lumbar spine. Mild chronic T11 and T12 height loss, as before. There is ankylosis at the sacroiliac joints. No visualized aggressive osseous lesion. Impression: Impression: 1.De Los Santos catheter balloon and tip appear to terminate in the proximal penile urethra. Recommend repositioning. 2.Moderate distention of the bladder with small amount of gas in the bladder, as before. Bladder wall thickening appears mildly decreased since the prior exam. Correlate with urinalysis. 3.Questionable wall thickening of the distal rectum. Correlate for symptoms of proctitis. 4.Bilateral inguinal hernias, larger on the left containing a partial loop of sigmoid colon. No proximal dilatation. 5.Mild asymmetric prominence of the left inguinal lymph nodes, likely reactive. Clinical follow-up recommended. 6.Calcific atherosclerosis. The ordering provider was notified of the results by Dr. Ferraro at 06/25/2025 7:54 PM EDT. Electronically Signed: Nehemias Ferrrao 06/25/2025 7:55 PM EDT Workstation ID: [id number] XR Foot 3+ View Left [[id number]] Collected: 06/25/251858 Updated: 06/25/251905 Narrative: XR FOOT 3+ VW LEFT Date of Exam: 06/25/2025 6:15 PM EDT Indication: diabetic ulcer. Comparison: August 2024 Findings: Bones are grossly osteopenic. There is marked soft tissue swelling overlying dorsum of the foot andat the stump distal to the metatarsal ray resection sites. There is shallow soft tissue ulceration at the dorsum of the foot distally. 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 There is dense vascular calcification noted. Impression: Impression: Marked soft tissue swelling at the stump and dorsum of the foot suggest cellulitis.. Small shallow soft tissue ulceration distal dorsum of the foot No acute osseous abnormality. If there is concern for osteomyelitis MRI is recommended. Electronically Signed: Duglas Lay MD 06/25/2025 7:03 PM EDT Workstation ID: [id number] Impression: --acute left lower leg/foot cellulitis and wound infection, prior culture July 2024 with ESBL Klebsiella pneumoniae and pseudomonas aeruginosa, pseudomonas was sensitive to Merrem per microbiology lab at [facility]. Cx at [facility] as below; He has had multiple surgeries and multiple p ractitioners recommend higher level amputation which he has refused. On prior admissions, he has refused outpatient IV antibiotics and he has refused placement for longer durations of IV antibiotics.This refusal of care has placed him at increased risk for poor outcome. Earlier in 2024 he was discharged to the care of Dr. Oneal, his outpatient ID doctor and Dr Faust his automobile travel club counselor for furthercare/workup ; readmission May 2025 and June 2025 with acute worsening in redness/drainage to left lower extremity. High risk for further serious morbidity and other serious sequela includingpersistent/recurrent or nonhealing wounds, persistent/progressive or recurrent infection and risk for further functional/limb loss, higher-level amputation and other dire consequences including sepsis/mortalityetc. he remains opposed to amputation; he voices understanding his poor prognosis overallincluding risks for dire consequences; past Cx with MRSA/PSA/ESBL at prior admissions; culture June 02, 2025 with Proteus/MRSA/PSA; Cx June 2025 pending; further imaging no definitive osteomyelitis but also unable to exclude per radiology at distal first/second MT --GPC bacteremia, E Faecium; NOT vanco resistant; risk for dapto resistance with prior daptomycin; ?foot source -v- other --Acute hematuria/UTI with chronic indwelling De Los Santos catheter. Proteus in culture so far; nursing reports De Los Santos catheter has been changed since admission; urology evaluation for further consideration of cystoscopy versus SP catheter or other; urine microscopic with yeast and potential for yeast colon ization/contaminant but also potential for evolving invasive candidiasis. Follow-up on culture data, blood catheter has been changed as above and empiric antibiotics. Mycamine IV ??1 06/26 --Acute diarrhea, Norovirus + and C. Difficile PCR +, although toxin antigen negative. He has risk for active disease and does have symptomatology and requires antibiotics for other processes, and therefore oral vancomycin added although unable to definitively confirm active disease with toxin antigen negative ( although risk for false negative); supportive care ongoing --MRSA surveillance + --Peripheral arterial disease by past evaluation of vascular team in addition to history DVT. 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 --Hx QTc > 500 ms on prior EKG PLAN: --IV vancomycin//merrem, oral vancomycin --mycamine x 1 06/26 wound culture June 02, 2025 with Proteus /MRSA, PSA urine culture June 02, 2025 E Coli/ESBL Proteus urine culture 06/25 proteus, MURRAY pending blood culture 06/25 E Faecium wound culture 06/25 (surface) with MRSA and GNR x 2 _Dr Marcano with plans for further debridement which should help give additional information regarding extent of disease at foot --Check/review labs cultures and scans --Partial history Per nursing staff --d/w Dr Marcano/Dr Santillan/multidisciplinary team with respect to complexity above/below and [...] caregivers regarding antimicrobial stewardship and antibiotic resistance. Managed infection control protocol. Duglas Andres MD 06/28/2025 [1] Allergies Allergen Reactions Keppra [Levetiracetam] Other (See Comments) Acute psychosis Bupropion Unknown (See Comments) Codeine Nausea Only Hydrocodone Unknown (See Comments) Ketorolac Tromethamine Unknown (See Comments) [2] Current Facility-Administered Medications Medication Dose Route Frequency Provider Last Rate Last Admin acetaminophen (TYLENOL) tablet 650 mg 650 mg Oral Q4H PRN Amanda Bermudez MD 650 mg at 06/28/25 0158 Or acetaminophen (TYLENOL) 160 MG/5ML oral solution 650 mg 650 mg Oral Q4H PRN Amanda Bermudez MD Or acetaminophen (TYLENOL) suppository 650 mg 650 mg Rectal Q4H PRN Amanda Bermudez MD aluminum-magnesium hydroxide-simethicone (MAALOX MAX) 400-400-40 MG/5ML suspension 15 mL 15 mL [id number] PRN Amanda Bermudez MD [Held by provider] apixaban (ELIQUIS) tablet 5 mg 5 mg Oral BID Amanda Bermudez MD ascorbic acid (VITAMIN C) tablet 500 mg 500 mg Oral Daily Amanda Bermudez MD 500 mg at 06/27/25 0833 baclofen (LIORESAL) tablet 10 mg 10 mg Oral Q12H Amanda Bermudez MD 10 mg at 06/27/25 2151 sennosides-docusate (PERICOLACE) 8.6-50 MG per tablet 2 tablet 2 tablet Oral BID PRN Amanda Bermudez MD And polyethylene glycol (MIRALAX) packet 17 g 17 g Oral Daily PRN Amanda Bermudez MD And bisacodyl (DULCOLAX) EC tablet 5 mg 5 mg Oral Daily PRN Amanda Bermudez MD And bisacodyl (DULCOLAX) suppository 10 mg 10 mg Rectal Daily PRN Amanda Bermudez MD Calcium Replacement - Follow Nurse / BPA Driven Protocol Not Applicable PRN Amanda Bermudez MD carvedilol (COREG) tablet 3.125 mg 3.125 mg Oral BID With Meals Amanda Bermudez MD 3.125 mg at 06/27/25 1707 clopidogrel (PLAVIX) tablet 75 mg 75 mg Oral Daily Amanda Bermudez MD 75 mg at 06/27/25 0833 famotidine (PEPCID) tablet 20 mg 20 mg Oral BID AC Arnoldo Crews, PharmD 20 mg at 06/27/25 1706 finasteride (PROSCAR) tablet 5 mg 5 mg Oral Daily Amanda Bermudez MD 5 mg at 06/27/25 0834 folic acid (FOLVITE) tablet 1 mg 1 mg Oral Daily Amanda Bermudez MD 1 mg at 06/27/25 0834 gabapentin (NEURONTIN) capsule 200 mg 200 mg Oral Q8H Amanda Bermudez MD 200 mg at 06/28/25 0543 heparin (porcine) 5000 UNIT/ML injection 5,000 Units 5,000 Units Subcutaneous Q8H Lupe Albert APRN 5,000 Units at 06/28/25 0543 insulin glargine (LANTUS, SEMGLEE) injection 56 Units 56 Units Subcutaneous Nightly Amanda Bermudez MD 56 Units at 06/27/25 2158 ipratropium-albuterol (DUO-NEB) nebulizer solution 3 mL 3 mL Nebulization Q6H PRN Amanda Bermudez MD lamoTRIgine (LaMICtal) tablet 100 mg 100 mg Oral Daily Amanda Bermudez MD 100 mg at 06/27/25 0834 lamoTRIgine (LaMICtal) tablet 250 mg 250 mg Oral Nightly Amanda Bermudez MD 250 mg at 06/27/25 2157 Magnesium Cardiology Dose Replacement - Follow Nurse / BPA Driven Protocol Not Applicable PRN Amanda Bermudez MD meropenem (MERREM) 500 mg in sodium chloride 0.9 % 100 mL MBP 500 mg Intravenous Q6H Duglas Andres MD 500 mg at 06/28/25 0402 methenamine (HIPREX) tablet 1 g 1 g Oral BID With Meals Amanda Bermudez MD 1 g at 06/27/25 1707 multivitamin with minerals 1 tablet 1 tablet Oral Daily Amanda Bermudez MD 1 tablet at 06/27/25 0834 naloxone (NARCAN) injection 0.4 mg 0.4 mg Intravenous Q5 Min PRN Amanda Bermudez MD nitroglycerin (NITROSTAT) SL tablet 0.4 mg 0.4 mg Sublingual Q5 Min PRN Amanda Bermudez MD ondansetron (ZOFRAN) injection 4 mg 4 mg Intravenous Q6H PRN Amanda Bermudez MD oxyCODONE-acetaminophen (PERCOCET) 5-325 MG per tablet 1 tablet 1 tablet Oral Q6H PRN Hiro Santillan MD 1 tablet at 06/28/25 0542 Pharmacy to dose vancomycin Not Applicable Continuous PRN Duglas Andres MD Phosphorus Replacement - Follow Nurse / BPA Driven Protocol Not Applicable PRN Amanda Bermudez MD Potassium Replacement - Follow Nurse / BPA Driven Protocol Not Applicable PRN Amanda Bermudez MD sacubitril-valsartan (ENTRESTO) 24-26 MG tablet 1 tablet 1 tablet Oral BID Amanda Bermudez MD 1 tablet at 06/27/25 2149 sodium chloride 0.9 % flush 10 mL 10 mL Intravenous PRN Ally Jeffers V, DIABETES NURSE sodium chloride 0.9 % flush 10 mL 10 mL Intravenous Q12H Amanda Bermudez MD 10 mL at 06/27/25 2157 sodium chloride 0.9 % flush 10 mL 10 mL Intravenous PRN Amanda Bermudez MD vancomycin (VANCOCIN) 1,000 mg in sodium chloride 0.9 % 250 mL IVPB-VTB 1,000 mg Intravenous Q12H Osmany Mccann, [facility] vancomycin (VANCOCIN) capsule 125 mg 125 mg Oral 4x Daily Duglas Andres MD 125 mg at Followed by [START ON 07/10/2025] vancomycin (VANCOCIN) capsule 125 mg 125 mg Oral TID Duglas Andres MD Followed by [START ON 07/17/2025] vancomycin (VANCOCIN) capsule 125 mg 125 mg Oral BID Duglas Andres MD Followed by [START ON 07/25/2025] vancomycin (VANCOCIN) capsule 125 mg 125 mg Oral Daily Duglas Andres MD Followed by [START ON 08/01/2025] vancomycin (VANCOCIN) capsule 125 mg 125 mg Oral Weekly Duglas Andres MD * Osmany Mccann [facility] - 06/28/2025 7:25 AM EDT Images from the original note were not included. Pharmacy Consult - Vancomycin Dosing and Monitoring Trung Pool is a 70 y.o. male receiving vancomycin therapy. Indication: Bacteremia Consulting Provider: Duglas Andres MD ID Consult: yes Goal AUC: 400-600 mg/L*hr Current Antimicrobial Therapy Vancomycin initial dosing Meropenem 500mg q6h Allergies Allergies as of 06/25/2025 - Reviewed 06/25/2025 Allergen Reaction Noted Keppra [levetiracetam] Other (See Comments) 08/01/2023 Bupropion Unknown (See Comments) 03/06/2022 Codeine Nausea Only 04/28/2019 Hydrocodone Unknown (See Comments) 03/06/2022 Ketorolac tromethamine Unknown (See Comments) 03/06/2022 Labs Results from last 7 days Lab Units 06/28/25 0400 06/27/25 0400 06/26/25 0741 BUN mg/dL 11.0 15.3 19.1 CREATININE mg/dL 0.79 0.92 0.88 Results from last 7 days Lab Units 06/27/25 0400 06/26/25 0740 06/25/25 1817 WBC 10*3/mm3 9.98 9.69 9.96 Evaluation of Dosing Last Dose Received in the ED/Outside Facility: no Is Patient on Dialysis or Renal Replacement: no Height - 182.9 cm (72 ) Weight - 116 kg (255 lb 8 oz) Estimated Creatinine Clearance: 112.8 mL/min (by C-G formula based on SCr of 0.79 mg/dL). I/O last 3 completed shifts: In: 600 [P.O.:500; IV Piggyback:100] Out: 2800 [Urine:2800] Microbiology and Radiology Microbiology Results (last 10 days) Procedure Component Value - Date/Time Gastrointestinal Panel, PCR - Stool, Per Rectum [[id number]] (Abnormal) Collected: 06/26/25 0046 Lab Status: Final result Specimen: Stool from Per Rectum Updated: 06/26/25 0850 Campylobacter Not Detected Plesiomonas shigelloides Not Detected Salmonella Not Detected Vibrio Not Detected Vibrio cholerae Not Detected Yersinia enterocolitica Not Detected Enteroaggregative E. coli (EAEC) Not Detected Enteropathogenic E. coli (EPEC) Not Detected Enterotoxigenic E. coli (ETEC) lt/st Not Detected Shiga-like toxin-producing E. coli (STEC) stx1/stx2 Not Detected Shigella/Enteroinvasive E. coli (EIEC) Not Detected Cryptosporidium Not Detected Cyclospora cayetanensis Not Detected Entamoeba histolytica Not Detected Giardia lamblia Not Detected Adenovirus F40/41 Not Detected Astrovirus Not Detected Norovirus GI/GII Detected Comment: If a positive Norovirus result is inconsistent with clinical presentation, the positive Norovirus result should be confirmed using another method. Rotavirus A Not Detected Sapovirus (I, II, IV or V) Not Detected Clostridioides difficile Toxin - Stool, Per Rectum [[id number]] (Abnormal) Collected: 06/26/2545 Lab Status: Final result Specimen: Stool from Per Rectum Updated: 06/26/25754 Narrative: The following orders were created for panel order Clostridioides difficile Toxin - Stool, Per Rectum. Procedure Abnormality Status --------- ------ Clostridioides difficile...[[id number]] Abnormal Final result Please view results for these tests on the individual orders. Clostridioides difficile Toxin, PCR - Stool, Per Rectum [[id number]] (Abnormal) Collected: 06/26/2545 Lab Status: Final result Specimen: Stool from Per Rectum Updated: 06/26/25754 Toxigenic C. difficile by PCR Detected Narrative: DNA from a toxigenic strain of C.difficile has been detected. MRSA Screen, PCR (Inpatient) - Swab, Nares [[id number]] (Abnormal) Collected: 06/26/2545 Lab Status: Final result Specimen: Swab from Nares Updated: 06/26/25 0850 MRSA PCR Positive Narrative: The negative predictive value of this diagnostic test is high and should only be used to consider de-escalating anti-MRSA therapy. A positive result may indicate colonization with MRSA and must be correlated clinically. Clostridioides difficile toxin Ag, Reflex - Stool, Per Rectum [[id number]] (Normal) Collected: 06/26/2545 Lab Status: Final result Specimen: Stool from Per Rectum Updated: 06/26/25835 C.diff Toxin Ag Negative Narrative: DNA from a toxigenic strain of C.difficile was detected, although the free toxin itself was not detected. These findings are consistent with C.difficile colonization and may not reflect actual C.difficile infection. Clinical correlation needed. Blood Culture - Blood, Hand, Right [[id number]] (Abnormal) (Susceptibility) Collected: 06/25/252029 Lab Status: Final result Specimen: Blood from Hand, Right Updated: 06/28/25 0613 Blood Culture Enterococcus faecium Comment: Infectious disease consultation is highly recommended. Isolated from Anaerobic Bottle Gram Stain Anaerobic Bottle Gram positive cocci in chains Narrative: Less than seven (7) mL's of blood was collected. Insufficient quantity may yield false negative results. Susceptibility Enterococcus faecium MURRAY Ampicillin <=2 ug/ml Susceptible Gentamicin High Level Synergy SYN-S ug/ml Susceptible Vancomycin <=0.5 ug/ml Susceptible Blood Culture ID, PCR - Blood, Hand, Right [[id number]] (Abnormal) Collected: 06/25/252029 Lab Status: Final result Specimen: Blood from Hand, Right Updated: 06/26/252101 BCID, PCR Enterococcus faecium. Zee/B (vancomycin resistance gene) not detected. Identification byBCID2 PCR. BOTTLE TYPE Anaerobic Bottle Narrative: Infectious disease consultation is highly recommended to rule out distant foci of infection. Urine Culture - Urine, Indwelling Urethral Catheter [[id number]] (Abnormal) Collected: 06/25/252000 Lab Status: Preliminary result Specimen: Urine from Indwelling Urethral Catheter Updated: 06/27/25 1146 Urine Culture >100,000 CFU/mL Proteus species Narrative: Colonization of the urinary tract without infection is common. Treatment is discouraged unless the patient is symptomatic, , or undergoing an invasive urologic procedure. Blood Culture - Blood, Arm, Left [[id number]] (Normal) Collected: 06/25/251819 Lab Status: Preliminary result Specimen: Blood from Arm, Left Updated: 06/27/25 1931 Blood Culture No growth at 2 days Wound Culture - Swab, Foot, Left [[id number]] (Abnormal) Collected: 06/25/251817 Lab Status: Preliminary result Specimen: Swab from Foot, Left Updated: 06/27/25 1201 Wound Culture Heavy growth (4+) Staphylococcus aureus, MRSA Comment: Methicillin resistant Staphylococcus aureus, Patient may be an isolation risk. Moderate growth (3+) Gram Negative Bacilli Moderate growth (3+) Gram Negative Bacilli Gram Stain Few (2+) WBCs seen Few (2+) Gram positive cocci in pairs, chains and clusters Few (2+) Gram negative bacilli Reported Vancomycin Levels Results from last 7 days Lab Units 06/28/25 0400 VANCOMYCIN RM mcg/mL 23.30 [employer] AUC Calculation: Current AUC: 514 mg/L*hr Predicted Steady State AUC on Current Dose: 592 mg/L*hr Predicted Steady State AUC on New Dose: 476 mg/L*hr Assessment/Plan: Vancomycin dosing for bacteremia Goal AUC: 400-600 mg/L*hr 06/28 SCr - 0.79 06/27 WBC - 9.98 24hr tmax - 98.3 06/28 vancomycin level - 23.3 mcg/ml @0400 Vancomycin level drawn 5 hours following 2nd dose Adjust to vancomycin 1000mg q12h Obtain vancomycin level 10 am Monitor renal function, clinical status and infusion related reactions Follow vancomycin levels and adjust dose accordingly ThanksOsmany RPH 06/28/2025 07:17 EDT * Lupe Albert APRN - 06/27/2025 12:42 PM EDT Images from the original note were not included. VASCULAR SURGERY PROGRESS NOTE Subjective Resting in bed - reports feels worse today than yesterday. Discussed plans for upcoming procedure recommendations from Dr. Marcano but unable to get him on the schedule until early/mid next week. Objective Last Recorded Vitals Blood pressure 146/87, pulse 67, temperature 98 ??F (36.7 ??C), temperature source Oral, resp. rate18, height 182.9 cm (72 ), weight 114 kg (251 lb 5.2 oz), SpO2 97%. Physical Exam Gen: Awake; elderly white male; resting in bed HEENT: [place] conjunctivae, MMM Lungs: Normal respiratory effort Ext: hx right BKA; left foot TMA wound; motor intact; thickened flaky skin Skin: Exposed skin warm Neuro: Follows simple commands Psych: Apropriate mood, talkative Labs: Lab Results (last 24 hours) Procedure Component Value Units Date/Time Wound Culture - Swab, Foot, Left [[id number]] (Abnormal) Collected: 06/25/25 1818 Specimen: Swab from Foot, Left Updated: 06/27/25 1201 Wound Culture Heavy growth (4+) Staphylococcus aureus, MRSA Comment: Methicillin resistant Staphylococcus aureus, Patient may be an isolation risk. Moderate growth (3+) Gram Negative Bacilli Moderate growth (3+) Gram Negative Bacilli Gram Stain Few (2+) WBCs seen Few (2+) Gram positive cocci in pairs, chains and clusters Few (2+) Gram negative bacilli Urine Culture - Urine, Indwelling Urethral Catheter [[id number]] (Abnormal) Collected: 06/25/252000 Specimen: Urine from Indwelling Urethral Catheter Updated: 06/27/25 114 Urine Culture >100,000 CFU/mL Proteus species Narrative: Colonization of the urinary tract without infection is common. Treatment is discouraged unless the patient is symptomatic, , or undergoing an invasive urologic procedure. POC Glucose Once [[id number]] (Normal) Collected: 06/27/25 1110 Specimen: Blood Updated: 06/27/25 1112 Glucose 130 mg/dL Comment: Serial Number: [id number]: [id number] POC Glucose Finger 4x Daily Before Meals & at Bedtime [[id number]] (Normal) Collected: 06/27/25 07 Specimen: Blood from Finger Updated: 06/27/25 07 Glucose 102 mg/dL Comment: Serial Number: [id number]: [id number] Blood Culture - Blood, Hand, Right [[id number]] (Abnormal) Collected: 06/25/252029 Specimen: Blood from Hand, Right Updated: 06/27/25 0618 Blood Culture Gram Positive Cocci Isolated from Anaerobic Bottle Gram Stain Anaerobic Bottle Gram positive cocci in chains Narrative: Less than seven (7) mL's of blood was collected. Insufficient quantity may yield false negative results. Magnesium [[id number]] (Normal) Collected: 06/27/25 040 Specimen: Blood Updated: 06/27/25 05 Magnesium 2.2 mg/dL Basic Metabolic Panel [[id number]] (Abnormal) Collected: 06/27/25 040 Specimen: Blood Updated: 06/27/25 05 Glucose 91 mg/dL BUN 15.3 mg/dL Creatinine 0.92 mg/dL Sodium 139 mmol/L Potassium 4.3 mmol/L Chloride 109 mmol/L CO2 20.3 mmol/L Calcium 8.1 mg/dL BUN/Creatinine Ratio 16.6 Anion Gap 9.7 mmol/L eGFR 88.9 mL/min/1.73 Narrative: GFR Categories in Chronic Kidney Disease (CKD) GFR Category GFR (mL/min/1.73) Interpretation G1 90 or greater Normal or high (1) G2 60-89 Mild decrease (1) G3a 45-59 Mild to moderate decrease G3b 30-44 Moderate to severe decrease G4 15-29 Severe decrease G5 14 or less Kidney failure (1)In the absence of evidence of kidney disease, neither GFR category G1 or G2 fulfill the criteriafor CKD. eGFR calculation 2020 CKD-EPI creatinine equation, which does not include race as a factor CBC & Differential [[id number]] (Abnormal) Collected: 06/27/25399 Specimen: Blood Updated: 06/27/25506 Narrative: The following orders were created for panel order CBC & Differential. Procedure Abnormality Status --------- ------ CBC Auto Differential[[id number]] Abnormal Final result Please view results for these tests on the individual orders. CBC Auto Differential [[id number]] (Abnormal) Collected: 06/27/25399 Specimen: Blood Updated: 06/27/25506 WBC 9.98 10*3/mm3 RBC 3.93 10*6/mm3 Hemoglobin 9.4 g/dL Hematocrit 30.4 % MCV 77.4 fL MCH 23.9 pg MCHC 30.9 g/dL RDW 16.9 % RDW-SD 47.6 fl MPV 9.6 fL Platelets 274 10*3/mm3 Neutrophil % 68.1 % Lymphocyte % 17.9 % Monocyte % 8.3 % Eosinophil % 4.7 % Basophil % 0.6 % Immature Grans % 0.4 % Neutrophils, Absolute 6.79 10*3/mm3 Lymphocytes, Absolute 1.79 10*3/mm3 Monocytes, Absolute 0.83 10*3/mm3 Eosinophils, Absolute 0.47 10*3/mm3 Basophils, Absolute 0.06 10*3/mm3 Immature Grans, Absolute 0.04 10*3/mm3 nRBC 0.0 /100 WBC POC Glucose Once [[id number]] (Abnormal) Collected: 06/26/252106 Specimen: Blood Updated: 06/26/252109 Glucose 176 mg/dL Comment: Serial Number: [id number]: [id number] Blood Culture ID, PCR - Blood, Hand, Right [[id number]] (Abnormal) Collected: 06/25/252029 Specimen: Blood from Hand, Right Updated: 06/26/252101 BCID, PCR Enterococcus faecium. Zee/B (vancomycin resistance gene) not detected. Identification byBCID2 PCR. BOTTLE TYPE Anaerobic Bottle Narrative: Infectious disease consultation is highly recommended to rule out distant foci of infection. Blood Culture - Blood, Arm, Left [[id number]] (Normal) Collected: 06/25/251819 Specimen: Blood from Arm, Left Updated: 06/26/251930 Blood Culture No growth at 24 hours POC Glucose Once [[id number]] (Abnormal) Collected: 06/26/25 164 Specimen: Blood Updated: 06/26/25 164 Glucose 193 mg/dL Comment: Serial Number: [id number]: [id number] MRI Foot Left Without Contrast Narrative: MRI FOOT LEFT WO CONTRAST Date of Exam: 06/26/2025 8:12 PM EDT Indication: Assess for osteomyelitis. Status post amputation. Wound in stump. Comparison: Left foot radiographs 06/25/2025, left foot MRI 01/15/2024 Technique: Routine multiplanar/multisequence sequence images of the left foot were obtained withoutcontrast administration. Findings: There is a nondisplaced intra-articular fracture across the distal tibia with associated marrow edema. This may be acute to subacute. Posterior and plantar calcaneal enthesophytes are present. There is distal Achilles tendinopathy with increased signal in the substance of the tendon. As seen radiographically, the patient is status post transmetatarsal amputation at the level of the metatarsal diaphyses. Within the distal first and second metatarsaldiaphyses at the resection margins, there is some edema noted on the T1 and T2 weighted images, and as such, osteomyelitis is not excluded. No other changes of potential osteomyelitis are identified. There is diffuse soft tissue edema and skin thickening about the remaining foot, particularly along the dorsal side and distally at the stump compatible with cellulitis. Edema extends throughout the subcutaneous tissues on the dorsum of the foot and in the stump. No definite abscess is seen allowing for the lack of contrast. Impression: 1.Status post transmetatarsal amputation at the level of the metatarsal diaphyses. There is some edema in the distal first and second metatarsal diaphyses at the resection margins, and assuch, osteomyelitis is not excluded. 2.Diffuse soft tissue edema and skin thickening about the remaining foot, particularly along the dorsal side and distally at the stump compatible with cellulitis. No definite abscess is seen allowingfor the lack of contrast. 3.Nondisplaced intra-articular fracture of the distal tibia with associated marrow edema. This may be acute to subacute. 4.Distal Achilles tendinopathy. Electronically Signed: Brent Lubin MD 06/26/2025 10:08 PM EDT Workstation ID: [id number] Duplex Venous Lower Extremity - Left CAR Normal left lower extremity venous duplex scan. Duplex Lower Extremity Art / Grafts - Left CAR Abnormal waveforms suggest inflow (aortoiliac) disease. At least moderate (60% (stenosis in the left SFA. The left CHIP appears to be occluded filling via collaterals retrograde. CT Angiogram Lower Extremity Left Narrative: CT ANGIOGRAM LOWER EXTREMITY LEFT Date of Exam: 06/26/2025 4:18 AM EDT Indication: Left leg limb ischemia. Comparison: Correlation with CT abdomen and pelvis 06/25/2025. Technique: CTA of the left lower extremity was performed before and after the uneventful intravenous administration of iodinated contrast. Reconstructed coronal and sagittal images were also obtained. In addition, a 3-D volume rendered image was created for interpretation. Automated exposure control and iterative reconstruction methods were used. Findings: CT angiography: There is moderate disease in the visualized aorta above the bifurcation. There is mild nonstenosing disease in the common iliac arteries. There is mild nonstenosing disease in the external iliac arteries and similar mild disease present in the internal iliac arteries. Right lower extremity: Patient is status post ebgil-rsv-obtp amputation. There is mild disease in the SEWING SUPERVISOR and SFA. The PFA is occluded proximally with reconstitution. There is moderate segmental stenosing disease in the remainder of the SFA. Left lower extremity: Minimal SEWING SUPERVISOR disease. PFA is patent. There is mild SFA disease with moderate focal narrowing at the junction of the SFA and popliteal artery. The klobd-vxc-lxoj popliteal artery appears otherwise widely patent. There is mild below the knee popliteal artery disease. There appears to be embolization of the peroneal artery. Patencyof the anterior and posterior tibial arteries is difficult to assess due to significant venous contamination and heavy calcification. Definite runoff into the left foot is seen in the posterior tibial artery. 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 Nonvascular findings: There is severe diffuse atrophy in the left lower extremity musculature particularly below the knee. The bones are markedly demineralized in the left foreleg. There is muscular atrophy in the right thigh. There is a moderate sized fat and sigmoid colon containing left inguinal hernia and a small fat-containing right inguinal hernia. There is marked urinary bladder wall thickening. IVC filter is partially seen and discussed on previous reports. The appendix is normal. There is no pelvic ascites. No acute osseous abnormality. There are moderate to severe lower lumbar degenerative changes. Impression: Impression: 1.There is mild disease in the left lower extremity with moderate focal narrowing at the junction of the SFA and popliteal artery. There appears to be embolization of the left left peroneal artery. Patency of the anterior and posterior tibial arteries is difficult to assess due to significant venous contamination and heavy calcification. Definite runoff into the left foot is seen in the posterior tibial artery. 2.Status post right nhmrg-ene-ujiu amputation. There is occlusion of the proximal right PFA with reconstitution. 3.Severe diffuse atrophy in the left lower extremity musculature. 4.Moderate sized fat and sigmoid colon containing left inguinal hernia and small fat-containing right inguinal hernia. 5.Marked urinary bladder wall thickening. Correlate for cystitis. Electronically Signed: Hussain Lyles MD 06/26/2025 5:08 AM EDT Workstation ID: [id number] XR Chest 1 View Narrative: XR CHEST 1 VW Date of Exam: 06/26/2025 3:07 AM EDT Indication: cough. Comparison: 06/02/2025 Findings: Cardiomegaly is stable. Pulmonary vascularity is normal. There is atherosclerotic disease in the aorta. Mild right basilar atelectasis may be present. Lungs are otherwise clear. No pneumothorax. There is degenerative disease in the shoulders. Impression: Cardiomegaly with possible mild right basilar atelectasis. Electronically Signed: Brent Lubin MD 06/26/2025 4:13 AM EDT Workstation ID: [id number] Assessment - Severe sepsis, POA - LEFT lower extremity cellulitis with wound infection - hx ESBL Klebsiella pneumoniae and pseudomonas aeruginosa - Urinary tract infection with hematuria - Severe PAD - Hx RIGHT BKA - Hx LLE revascularization with TMA - Diabetes mellitus type 2 with neuropathy - Hx IVC filter placement - Acute on chronic anemia - Hypertension - Coronary artery disease - Hx Medical non-compliance - Hx seizures - Bilateral inguinal hernias - BPH - Obesity - Former smoker - reportedly stopped 15 years ago - ?Memory loss? Plan - ID following for antx guidance - eliquis held in light of possible procedures - pain control PRN - continue plavix - glycemic control - heparin SQ Q8H DVT ppx - to OR for LEFT lower extremity angiogram with LEFT foot wound debridement and wound vac placementand all other indicated procedures per Dr. Marcano pending OR availability - he is adamant about no further amputations - palliative/hospice has been discussed with him in the past - please call for any further vascular concerns Discharge Planning: pending * Chinyere Hensley APRN - 06/27/2025 9:22 AM EDT Images from the original note were not included. [facility] Medicine Services PROGRESS NOTE Patient Name: Trung Pool : 1955 Date of Admission: 06/25/2025 Primary Care Physician: Gustavo Mehta MD Subjective Subjective CC: Follow-up sepsis HPI: Patient states he spoke with Dr Andres this morning about his infections, asks me to re discuss all his problems and wants someone to talk to . At times, making light of his medical condition and laughing saying when is this going to be better, what are you all going to do . Discussed his prior multiple refusals for intervention that has contributed to his condition. States one BM this morning, no BM in the last 2 days prior. No longer having diarrhea. No more hematuria. Objective Objective Vital Signs: Temp: [97.6 ??F (36.4 ??C)-98.3 ??F (36.8 ??C)] 98 ??F (36.7 ??C) Heart Rate: [68-88] 71 Resp: [16-18] 16 BP: (103-161)/(72-106) 111/72 Physical Exam: Constitutional: Chronically ill-appearing elderly male, unkempt HENT: NCAT, mucous membranes moist Respiratory: Clear to auscultation bilaterally, respiratory effort normal Cardiovascular: RRR, no murmurs, rubs, or gallops Gastrointestinal: Positive bowel sounds, soft, nontender, nondistended : [place] with yellow urine Musculoskeletal: Left foot stump with CDI dressing, underlying erythema, chronic venous stasis; Right BKA Psychiatric: Appropriate affect, cooperative Neurologic: Oriented x 3, nonfocal Skin: No rashes Results Reviewed: LAB RESULTS: Lab 06/27/2539906/26/2574006/26/2540 06/25/25 181 WBC 9.98 -- 9.69 9.96 HEMOGLOBIN 9.4* -- 8.8* 8.9* HEMATOCRIT 30.4* -- 29.3* 29.8* PLATELETS 274 -- 271 281 NEUTROS ABS 6.79 -- 6.58 7.05* IMMATURE GRANS (ABS) 0.04 -- 0.04 0.05 LYMPHS ABS 1.79 -- 1.77 1.48 MONOS ABS 0.83 -- 0.80 1.01* EOS ABS 0.47* -- 0.43* 0.32 MCV 77.4* -- 77.5* 76.2* CRP -- -- -- 4.34* PROCALCITONIN -- -- -- 0.12 LACTATE -- 1.2 -- 1.7 PROTIME -- 16.7* -- -- Lab 06/27/25 0400 06/26/25 0741 06/25/25 1817 SODIUM 139 142 138 POTASSIUM 4.3 3.7 4.4 CHLORIDE 109* 112* 106 CO2 20.3* 21.4* 21.2* ANION GAP 9.7 8.6 10.8 BUN 15.3 19.1 27.3* CREATININE 0.92 0.88 1.21 EGFR 88.9 91.9 64.0 GLUCOSE 91 134* 173* CALCIUM 8.1* 8.3* 8.3* MAGNESIUM 2.2 1.8 -- PHOSPHORUS -- 2.9 -- HEMOGLOBIN A1C -- 7.82* -- TSH -- 0.340 -- Lab 06/26/25 0741 06/25/25 1817 TOTAL PROTEIN 7.1 7.2 ALBUMIN 3.0* 3.2* GLOBULIN 4.1 4.0 ALT (SGPT) 13 14 AST (SGOT) 15 15 BILIRUBIN 0.2 0.2 ALK PHOS 116 127* Lab 06/26/25 0741 PROTIME 16.7* INR 1.27* Lab 06/26/25 0741 CHOLESTEROL 154 LDL CHOL 103* HDL CHOL 27* TRIGLYCERIDES 131 Lab 06/26/25 0741 IRON 14* IRON SATURATION (TSAT) 5* TIBC 256* TRANSFERRIN 172* FERRITIN 108.00 VITAMIN B 12 922 ABO TYPING B RH TYPING Positive ANTIBODY SCREEN Negative Brief Urine Lab Results (Last result in the past 365 days) Color Clarity Blood Leuk Est Nitrite Protein CREAT Urine HCG 06/25/252000 Yellow Turbid Large (3+) Large (3+) Positive Trace Microbiology Results Abnormal Procedure Component Value - Date/Time Blood Culture - Blood, Hand, Right [[id number]] (Abnormal) Collected: 06/25/252029 Lab Status: Preliminary result Specimen: Blood from Hand, Right Updated: 06/27/25 0618 Blood Culture Gram Positive Cocci Isolated from Anaerobic Bottle Gram Stain Anaerobic Bottle Gram positive cocci in chains Narrative: Less than seven (7) mL's of blood was collected. Insufficient quantity may yield false negative results. Blood Culture ID, PCR - Blood, Hand, Right [[id number]] (Abnormal) Collected: 06/25/252029 Lab Status: Final result Specimen: Blood from Hand, Right Updated: 06/26/252101 BCID, PCR Enterococcus faecium. Zee/B (vancomycin resistance gene) not detected. Identification byBCID2 PCR. BOTTLE TYPE Anaerobic Bottle Narrative: Infectious disease consultation is highly recommended to rule out distant foci of infection. Urine Culture - Urine, Indwelling Urethral Catheter [[id number]] (Abnormal) Collected: 06/25/252000 Lab Status: Preliminary result Specimen: Urine from Indwelling Urethral Catheter Updated: 06/26/25 1401 Urine Culture >100,000 CFU/mL Proteus species Narrative: Colonization of the urinary tract without infection is common. Treatment is discouraged unless the patient is symptomatic, , or undergoing an invasive urologic procedure. MRSA Screen, PCR (Inpatient) - Swab, Nares [[id number]] (Abnormal) Collected: 06/26/2545 Lab Status: Final result Specimen: Swab from Nares Updated: 06/26/25 0850 MRSA PCR Positive Narrative: The negative predictive value of this diagnostic test is high and should only be used to consider de-escalating anti-MRSA therapy. A positive result may indicate colonization with MRSA and must be correlated clinically. Gastrointestinal Panel, PCR - Stool, Per Rectum [[id number]] (Abnormal) Collected: 06/26/2545 Lab Status: Final result Specimen: Stool from Per Rectum Updated: 06/26/25 0850 Campylobacter Not Detected Plesiomonas shigelloides Not Detected Salmonella Not Detected Vibrio Not Detected Vibrio cholerae Not Detected Yersinia enterocolitica Not Detected Enteroaggregative E. coli (EAEC) Not Detected Enteropathogenic E. coli (EPEC) Not Detected Enterotoxigenic E. coli (ETEC) lt/st Not Detected Shiga-like toxin-producing E. coli (STEC) stx1/stx2 Not Detected Shigella/Enteroinvasive E. coli (EIEC) Not Detected Cryptosporidium Not Detected Cyclospora cayetanensis Not Detected Entamoeba histolytica Not Detected Giardia lamblia Not Detected Adenovirus F40/41 Not Detected Astrovirus Not Detected Norovirus GI/GII Detected Comment: If a positive Norovirus result is inconsistent with clinical presentation, the positive Norovirus result should be confirmed using another method. Rotavirus A Not Detected Sapovirus (I, II, IV or V) Not Detected Clostridioides difficile Toxin - Stool, Per Rectum [[id number]] (Abnormal) Collected: 06/26/2545 Lab Status: Final result Specimen: Stool from Per Rectum Updated: 06/26/25 7705 Narrative: The following orders were created for panel order Clostridioides difficile Toxin - Stool, Per Rectum. Procedure Abnormality Status --------- ------ Clostridioides difficile...[[id number]] Abnormal Final result Please view results for these tests on the individual orders. Clostridioides difficile Toxin, PCR - Stool, Per Rectum [[id number]] (Abnormal) Collected: 06/26/2545 Lab Status: Final result Specimen: Stool from Per Rectum Updated: 06/26/25 0755 Toxigenic C. difficile by PCR Detected Narrative: DNA from a toxigenic strain of C.difficile has been detected. MRI Foot Left Without Contrast Result Date: 06/26/2025 MRI FOOT LEFT WO CONTRAST Date of Exam: 06/26/2025 8:12 PM EDT Indication: Assess for osteomyelitis. Status post amputation. Wound in stump. Comparison: Left foot radiographs 06/25/2025, left foot MRI 01/15/2024 Technique: Routine multiplanar/multisequence sequence images of the left foot were obtained without contrast administration. Findings: There is a nondisplaced intra-articular fracture across the distal tibia with associated marrow edema. This may be acute to subacute. Posterior and plantar calcaneal enthesophytes are present. There is distal Achilles tendinopathy with increased signal in the substance of the tendon. As seen radiographically, the patient is status post transmetatarsal a mputation at the level of the metatarsal diaphyses. Within the distal first and second metatarsal diaphyses at the resection margins, there is some edema noted on the T1 and T2 weighted images, and as such, osteomyelitis is not excluded. No other changes of potential osteomyelitis are identified. There is diffuse soft tissue edema and skin thickening about the remaining foot, particularly along th e dorsal side and distally at the stump compatible with cellulitis. Edema extends throughout the subcutaneous tissues on the dorsum of the foot and in the stump. No definite abscess is seen allowing for the lack of contrast. Impression: 1.Status post transmetatarsal amputation at the level of the metatarsal diaphyses. There is some edema in the distal first and second metatarsal diaphyses at the resection margins, and assuch, osteomyelitis is not excluded. 2.Diffuse soft tissue edema and skin thickening about the remaining foot, particularly along the dorsal side and distally at the stump compatible with cellulitis.No definite abscess is seen allowing for the lack of contrast. 3.Nondisplaced intra-articular fracture of the distal tibia with associated marrow edema. This may be acute to subacute. 4.Distal Achilles tendinopathy. Electronically Signed: Brent Lubin MD 06/26/2025 10:08 PM EDT Workstation ID: [id number] Duplex Venous Lower Extremity - Left CAR Result Date: 06/26/2025 ??? Normal left lower extremity venous duplex scan. Duplex Lower Extremity Art / Grafts - Left CAR Result Date: 06/26/2025 ??? Abnormal waveforms suggest inflow (aortoiliac) disease. At least moderate (60% (stenosis in theleft SFA. The left CHIP appears to be occluded filling via collaterals retrograde. CT Angiogram Lower Extremity Left Result Date: 06/26/2025 CT ANGIOGRAM LOWER EXTREMITY LEFT Date of Exam: 06/26/2025 4:18 AM EDT Indication: Left leg limb ischemia. Comparison: Correlation with CT abdomen and pelvis 06/25/2025. Technique: CTA of the left lower extremity was performed before and after the uneventful intravenous administration of iodinated c ontrast. Reconstructed coronal and sagittal images were also obtained. In addition, a 3-D volume rendered image was created for interpretation. Automated exposure control and iterative reconstructionmethods were used. Findings: CT angiography: There is moderate disease in the visualized aorta above the bifurcation. There is mild nonstenosing disease in the common iliac arteries. There is mild nonstenosing disease in the external iliac arteries and similar mild disease present in the internal iliac arteries. Right lower extremity: Patient is status post dambq-rou-mibr amputation. There is mild disease in the SEWING SUPERVISOR and SFA. The PFA is occluded proximally with reconstitution. There is moderate segmental stenosing disease in the remainder of the SFA. Left lower extremity: Minimal SEWING SUPERVISOR disease. PFA is patent. There is mild SFA disease with moderate focal narrowing at the junction of the SFA and popliteal artery. The eoxfp-cug-jktx popliteal artery appears otherwise widely patent. There is mild below the knee popliteal artery disease. There appears to be embolization of the peroneal artery.Patency of the anterior and posterior tibial arteries is difficult to assess due to significant venous contamination and heavy calcification. Definite runoff into the left foot is seen in the posterior tibial artery. 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 Nonvascular findings: There is severe diffuse atrophy in the left lower extremity musculature particularly below the knee. The bones are markedly demineralized in the left foreleg. There is muscular atrophy in the right thigh. There is a moderate sized fat and sigmoid colon containing left inguinal hernia and a small fat-containing right inguinal hernia. There is marked urinary bladder wall thickening. IVC filter is partially seen and discussed on previous reports. The appendix is normal. There is no pelvic ascites. No acute osseous abnormality. There are moderate to severe lower lumbar degenerative changes. Impression: Impression: 1.There is mild disease in the left lower extremity with moderate focal narrowing at the junction of the SFA and popliteal artery. There appears to be embolization of the leftleft peroneal artery. Patency of the anterior and posterior tibial arteries is difficult to assess due to significant venous contamination and heavy calcification. Definite runoff into the left foot is seen in the posterior tibial artery. 2.Status post right ypsra-xnj-fvnk amputation. There is occlusion of the proximal right PFA with reconstitution. 3.Severe diffuse atrophy in the left lower extremity musculature. 4.Moderate sized fat and sigmoid colon containing left inguinal hernia and small fat- containing right inguinal hernia. 5.Marked urinary bladder wall thickening. Correlate for cystitis. Electronically Signed: Hussain Lyles MD 06/26/2025 5:08 AM EDT Workstation ID: [id number] XR Chest 1 View Result Date: 06/26/2025 XR CHEST 1 VW Date of Exam: 06/26/2025 3:07 AM EDT Indication: cough. Comparison: 06/02/2025 Findings: Cardiomegaly is stable. Pulmonary vascularity is normal. There is atherosclerotic disease in the aorta. Mild right basilar atelectasis may be present. Lungs are otherwise clear. No pneumothorax. There is degenerative disease in the shoulders. Impression: Cardiomegaly with possible mild right basilar atelectasis. Electronically Signed: Brent Lubin MD 06/26/2025 4:13 AM EDT Workstation ID: [id number] CT Abdomen Pelvis With Contrast Addendum Date: 06/25/2025 ADDENDUM #1 IVC filter is present on imaging study. It is recommended that all patients with IVC filters in place have an active management care plan to monitor their IVC filter. If a care plan is not in place, patient should have a non emergent referral to an interventional specialist such as interventional radiology or other interventional vascular specialist for establishment of an IVC filter management care plan. Electronically Signed: Nehemias Ferraro 06/25/2025 9:53 PM EDT Workstation ID: [id number] ORIGINAL REPORT: CT ABDOMEN PELVIS W CONTRAST Date of Exam: 06/25/2025 7:05 PM EDT Indication:Diarrhea, hematuria, abdominal discomfort. Comparison: 06/02/2025 Technique: Axial CT images were obt ained of the abdomen and pelvis following the uneventful intravenous administration of iodinated contrast. Reconstructed coronal and sagittal images were also obtained. Automated exposure control anditerative construction methods were used. Findings: Calcific atherosclerosis of the coronary arteries. No pleural or pericardial effusion. No suspicious infiltrate in the lower lungs. No definite ectopic bowel gas. No splenomegaly or suspicious splenic lesion. No suspicious hepatic abnormality. No definite acute biliary abnormality. No suspicious splenic or pancreatic abnormality. Aorta appears normal in caliber. There is calcific atherosclerosis of the aorta and branch vessels. IVC filter is present, as before. Lymph nodes do not appear significantly enlarged. Probable small bilateral upper pole renal cysts. There is expected excretion of contrast from the kidneys. No hydronephrosis. No dilated small bowel loops. No definite acute gastric abnormality. Small fat-containing umbilical hernia. There are bilateral inguinal hernias. Smaller right inguinal hernia contains fat. Larger left inguinal hernia contains a partial loop of sigmoid colon. No proximal dilatation. The appendix appears within normal limits. No definite findings of acute colonic inflammation. The bladder is moderately distended. Small amount of gas is present in the bladder, as before. Bladder wall thickening appearsmildly decreased since the prior exam. Prostate does not appear significantly enlarged. De [place] catheter balloon and tip appears to terminate in the proximal penile urethra. There is some questionable wall thickening of the distal rectum. No other definite perirectal abnormality. There appears to be mild asymmetric prominence of the left inguinal lymph nodes. Severe left and moderate right hip osteoarthritis. Advanced degenerative changes in the lumbar spine. Mild chronic T11 and T12 height loss,as before. There is ankylosis at the sacroiliac joints. No visualized aggressive osseous lesion. Impression: 1.[place] catheter balloon and tip appear to terminate in the proximal penile urethra. Recommend repositioning. 2.Moderate distention of the bladder with small amount of gas in the bladder, asbefore. Bladder wall thickening appears mildly decreased since the prior exam. Correlate with urinalysis. 3.Questionable wall thickening of the distal rectum. Correlate for symptoms of proctitis. 4.Bilateral inguinal hernias, larger on the left containing a partial loop of sigmoid colon. No proximal dilatation. 5.Mild asymmetric prominence of the left inguinal lymph nodes, likely reactive. Clinical follow-up recommended. 6.Calcific atherosclerosis. The ordering provider was notified of the results by Dr. Ferraro at 06/25/2025 7:54 PM EDT. Electronically Signed: Nehemias Ferraro 06/25/2025 7:55 PM EDT Workstation ID: [id number] Result Date: 06/25/2025 CT ABDOMEN PELVIS W CONTRAST Date of Exam: 06/25/2025 7:05 PM EDT Indication: Diarrhea, hematuria, abdominal discomfort. Comparison: 06/02/2025 Technique: Axial CT images were obtained of the abdomen and pelvis following the uneventful intravenous administration of iodinated contrast. Reconstructed coronal and sagittal images were also obtained. Automated exposure control and iterative construction methods were used. Findings: Calcific atherosclerosis of the coronary arteries. No pleural or pericardial effusion. No suspicious infiltrate in the lower lungs. No definite ectopic bowel gas. No splenomegaly or suspicious splenic lesion. No suspicious hepatic abnormality. No definite acute biliary abnormality. No suspicious splenic or pancreatic abnormality. Aorta appears normal in caliber. There is calcific atherosclerosis of the aorta and branch vessels. IVC filter is present, as before. Lymph nodes do not appear significantly enlarged. Probable small bilateral upper pole renal cysts. There is expected excretion of contrast from the kidneys. No hydronephrosis. No dilated small bowel loops. No definite acute gastric abnormality. Small fat- containing umbilical hernia. There are bilateralinguinal hernias. Smaller right inguinal hernia contains fat. Larger left inguinal hernia contains a partial loop of sigmoid colon. No proximal dilatation. The appendix appears within normal limits. No definite findings of acute colonic inflammation. The bladder is moderately distended. Small amount of gas is present in the bladder, as before. Bladder wall thickening appears mildly decreased since the prior exam. Prostate does not appear significantly enlarged. De [place] Santos catheter balloon and tip appears to terminate in the proximal penile urethra. There is some questionable wall thickening of thedistal rectum. No other definite perirectal abnormality. There appears to be mild asymmetric prominence of the left inguinal lymph nodes. Severe left and moderate right hip osteoarthritis. Advanced degenerative changes in the lumbar spine. Mild chronic T11 and T12 height loss, as before. There is ankylosis at the sacroiliac joints. No visualized aggressive osseous lesion. Impression: Impression: 1.De [place] catheter balloon and tip appear to terminate in the proximal penileurethra. Recommend repositioning. 2.Moderate distention of the bladder with small amount of gas in the bladder, as before. Bladder wall thickening appears mildly decreased since the prior exam. Correlate with urinalysis. 3.Questionable wall thickening of the distal rectum. Correlate for symptoms ofproctitis. 4.Bilateral inguinal hernias, larger on the left containing a partial loop of sigmoid colon. No proximal dilatation. 5.Mild asymmetric prominence of the left inguinal lymph nodes, likely reactive. Clinical follow-up recommended. 6.Calcific atherosclerosis. The ordering provider was notified of the results by Dr. Ferraro at 06/25/2025 7:54 PM EDT. Electronically Signed: Nehemias Ferraro 06/25/2025 7:55 PM EDT Workstation ID: [id number] XR Foot 3+ View Left Result Date: 06/25/2025 XR FOOT 3+ VW LEFT Date of Exam: 06/25/2025 6:15 PM EDT Indication: diabetic ulcer. Comparison: August 2024 Findings: Bones are grossly osteopenic. There is marked soft tissue swelling overlying dorsum of the foot and at the stump distal to the metatarsal ray resection sites. There is shallow soft tissue ulceration at the dorsum of the foot distally. 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 There is dense vascular calcification noted. Impression: Impression: Marked soft tissue swelling at the stump and dorsum of the foot suggest cellulitis.. Small shallow soft tissue ulceration distal dorsum of the foot No acute osseous abnormality. If there is concern for osteomyelitis MRI is recommended. Electronically Signed: Duglas Lay MD 06/25/2025 7:03 PM EDT Workstation ID: [id number] Results for orders placed during the hospital encounter of 08/31/24 Adult Transthoracic Echo Complete W/ Cont if Necessary Per Protocol 09/12/2024 4:10 PM Interpretation Summary ??? Left ventricular systolic function is normal. Calculated left ventricular EF = 52.5% ??? There is a trivial pericardial effusion. ??? The aortic valve exhibits sclerosis. ??? Mitral annular calcification is present. I have personally reviewed the therapy plans: [] PT/OT/ ST Therapy Plans Current medications: Scheduled Meds:[Held by provider] apixaban, 5 mg, Oral, BID vitamin C, 500 mg, Oral, Daily baclofen, 10 mg, Oral, Q12H carvedilol, 3.125 mg, Oral, BID With Meals clopidogrel, 75 mg, Oral, Daily famotidine, 20 mg, Oral, BID AC finasteride, 5 mg, Oral, Daily folic acid, 1 mg, Oral, Daily gabapentin, 200 mg, Oral, Q8H heparin (porcine), 5,000 Units, Subcutaneous, Q8H insulin glargine, 56 Units, Subcutaneous, Nightly lamoTRIgine, 100 mg, Oral, Daily lamoTRIgine, 250 mg, Oral, Nightly meropenem, 500 mg, Intravenous, Q6H methenamine, 1 g, Oral, BID With Meals multivitamin with minerals, 1 tablet, Oral, Daily sacubitril-valsartan, 1 tablet, Oral, BID sodium chloride, 10 mL, Intravenous, Q12H vancomycin, 125 mg, Oral, 4x Daily Followed by [START ON 07/10/2025] vancomycin, 125 mg, Oral, TID Followed by [START ON 07/17/2025] vancomycin, 125 mg, Oral, BID Followed by [START ON 07/25/2025] vancomycin, 125 mg, Oral, Daily Followed by [START ON 08/01/2025] vancomycin, 125 mg, Oral, Weekly vancomycin, 2,500 mg, Intravenous, Once vancomycin, 1,250 mg, Intravenous, Q12H Continuous Infusions:Pharmacy to dose vancomycin, PRN Meds:.??? acetaminophen OR acetaminophen OR acetaminophen ??? aluminum-magnesium hydroxide-simethicone ??? senna-docusate sodium AND polyethylene glycol AND bisacodyl AND bisacodyl ??? Calcium Replacement - Follow Nurse / BPA Driven Protocol ??? ipratropium-albuterol ??? Magnesium Cardiology Dose Replacement - Follow Nurse / BPA Driven Protocol ??? [DISCONTINUED] Morphine AND naloxone ??? nitroglycerin ??? ondansetron ??? oxyCODONE-acetaminophen ??? Pharmacy to dose vancomycin ??? Phosphorus Replacement - Follow Nurse / BPA Driven Protocol ??? Potassium Replacement - Follow Nurse / BPA Driven Protocol ??? Insert Peripheral IV AND sodium chloride ??? sodium chloride Assessment & Plan Assessment & Plan Active Hospital Problems Diagnosis POA ??? Gastroenteritis due to norovirus [A08.11] Yes ??? Acute UTI (urinary tract infection) [N39.0] Yes ??? Diarrhea of presumed infectious origin [R19.7] Yes ??? Acute on chronic blood loss anemia [D62] Yes ??? BPH without obstruction/lower urinary tract symptoms [N40.0] Yes ??? GERD without esophagitis [K21.9] Yes ??? Bilateral inguinal hernia [K40.20] Yes ??? Cellulitis [L03.90] Yes ??? Type 2 diabetes mellitus, with long-term current use of insulin [E11.9, Z79.4] Not Applicable ??? PAD (peripheral artery disease) [I73.9] Yes ??? Coronary artery disease involving [place] coronary artery of [place] heart without angina pectoris [I25.10] Yes ??? Seizure disorder [G40.909] Yes ??? Primary hypertension [I10] Yes Resolved Hospital Problems No resolved problems to display. Brief Hospital Course to date: Trung Pool is a 70-year-old male with a history of coronary artery disease, peripheral artery disease, type 2 diabetes mellitus (on insulin), right above- knee amputation, and seizure disorder, who was admitted with hematuria, left foot stump drainage, fatigue, and diarrhea. 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 Andres, agrees with MRI to rule out osteo - Follow-up CT angio left lower extremity, left lower extremity arterial Dopplers - Vascular surgery consulted in the evaluation follows with Dr. Marcano; recommending more debridement of LLE and possible wound vac placement; no OR time until next week. - Resume Plavix, holding Eliquis secondary to hematuria - Patient has been adamant about not having any more amputation --EKG to eval QTc today --blood culture with Enterococcus faecium by PCR; ID follows Acute UTI and hematuria History of BPH -He reported blood in his urine with associated odor and had a De Los Santos catheter in place. -UA with 4+ bacteria TNTC WBC -CT imaging revealed moderate bladder distention, small amount of gas in the bladder, and mildly decreased bladder wall thickening compared to prior exam. - H&H stable, continue holding Eliquis for now -Catheter in place, continue finasteride --urology consultation; rec to treat yeast in urine, will obtain EKG today to assess QTc- has been prolonged previously Norovirus - Follow-up GI PCR panel, C. difficile toxin is positive but antigen negative suggest colonization - CT imaging suggestive of proctitis - Continue antibiotics as above, ID consulted and are following - GI PCR is positive for norovirus, MRSA PCR+ Acute on Chronic anemia, possible blood loss -Continue to monitor H&H, holding of Eliquis -Transfuse PRBC if hemoglobin<7 Type 2 diabetes - Previously well-controlled with A1c 7.6 (08/2024), follow-up A1c - Continue SSI Seizure disorder - Continue lamotrigine GERD without Esophagitis He has a history of gastroesophageal reflux disease without esophagitis, and was continued on a proton pump inhibitor. Bilateral Inguinal Hernia, incidental finding on CT -CT imaging revealed bilateral inguinal hernias, larger on the left containing a partial loop of sigmoid colon, without proximal dilatation. - General surgery consult; rec watchful waiting, poor operative candidate for an elective procedurewhile asymptomatic, and has signed off Medical noncompliance All problems listed above are new to me today Expected Discharge Location and Transportation: TBD Expected Discharge Expected Discharge Date: 06/27/2025; Expected Discharge Time: VTE Prophylaxis: Pharmacologic VTE prophylaxis orders are present. AM-PAC 6 Clicks Score (PT): 10 (06/26/25 1435) CODE STATUS: Code Status and Medical Interventions: CPR (Attempt to Resuscitate); Full Support Ordered at: 06/25/25 2310 Code Status (Patient has no pulse and is not breathing): CPR (Attempt to Resuscitate) Medical Interventions (Patient has pulse or is breathing): Full Support Level Of Support Discussed With: Patient Chinyere Hensley APRN 06/27/25 * Osmany Mccann, [facility] - 06/27/2025 8:20 AM EDT Images from the original note were not included. Pharmacy Consult - Vancomycin Dosing and Monitoring Trung Pool is a 70 y.o. male receiving vancomycin therapy. Indication: Bacteremia Consulting Provider: Duglas Andres MD ID Consult: yes Goal AUC: 400-600 mg/L*hr Current Antimicrobial Therapy Vancomycin initial dosing Meropenem 500mg q6h Allergies Allergies as of 06/25/2025 - Reviewed 06/25/2025 Allergen Reaction Noted Keppra [levetiracetam] Other (See Comments) 08/01/2023 Bupropion Unknown (See Comments) 03/06/2022 Codeine Nausea Only 04/28/2019 Hydrocodone Unknown (See Comments) 03/06/2022 Ketorolac tromethamine Unknown (See Comments) 03/06/2022 Labs Results from last 7 days Lab Units 06/27/25 0400 06/26/25 0741 06/25/25 1817 BUN mg/dL 15.3 19.1 27.3* CREATININE mg/dL 0.92 0.88 1.21 Results from last 7 days Lab Units 06/27/25 0400 06/26/25 0740 06/25/25 1817 WBC 10*3/mm3 9.98 9.69 9.96 Evaluation of Dosing Last Dose Received in the ED/Outside Facility: no Is Patient on Dialysis or Renal Replacement: no Height - 182.9 cm (72 ) Weight - 114 kg (251 lb 5.2 oz) Estimated Creatinine Clearance: 96 mL/min (by C-G formula based on SCr of 0.92 mg/dL). I/O last 3 completed shifts: In: 5230 [P.O.:950; I.V.:3980; IV Piggyback:300] Out: 4250 [Urine:4250] Microbiology and Radiology Microbiology Results (last 10 days) Procedure Component Value - Date/Time Gastrointestinal Panel, PCR - Stool, Per Rectum [[id number]] (Abnormal) Collected: 06/26/25 0046 Lab Status: Final result Specimen: Stool from Per Rectum Updated: 06/26/25 0850 Campylobacter Not Detected Plesiomonas shigelloides Not Detected Salmonella Not Detected Vibrio Not Detected Vibrio cholerae Not Detected Yersinia enterocolitica Not Detected Enteroaggregative E. coli (EAEC) Not Detected Enteropathogenic E. coli (EPEC) Not Detected Enterotoxigenic E. coli (ETEC) lt/st Not Detected Shiga-like toxin-producing E. coli (STEC) stx1/stx2 Not Detected Shigella/Enteroinvasive E. coli (EIEC) Not Detected Cryptosporidium Not Detected Cyclospora cayetanensis Not Detected Entamoeba histolytica Not Detected Giardia lamblia Not Detected Adenovirus F40/41 Not Detected Astrovirus Not Detected Norovirus GI/GII Detected Comment: If a positive Norovirus result is inconsistent with clinical presentation, the positive Norovirus result should be confirmed using another method. Rotavirus A Not Detected Sapovirus (I, II, IV or V) Not Detected Clostridioides difficile Toxin - Stool, Per Rectum [[id number]] (Abnormal) Collected: 06/26/2545 Lab Status: Final result Specimen: Stool from Per Rectum Updated: 06/26/25754 Narrative: The following orders were created for panel order Clostridioides difficile Toxin - Stool, Per Rectum. Procedure Abnormality Status --------- ------ Clostridioides difficile...[[id number]] Abnormal Final result Please view results for these tests on the individual orders. Clostridioides difficile Toxin, PCR - Stool, Per Rectum [[id number]] (Abnormal) Collected: 06/26/2545 Lab Status: Final result Specimen: Stool from Per Rectum Updated: 06/26/25754 Toxigenic C. difficile by PCR Detected Narrative: DNA from a toxigenic strain of C.difficile has been detected. MRSA Screen, PCR (Inpatient) - Swab, Nares [[id number]] (Abnormal) Collected: 06/26/2545 Lab Status: Final result Specimen: Swab from Nares Updated: 06/26/25 0850 MRSA PCR Positive Narrative: The negative predictive value of this diagnostic test is high and should only be used to consider de-escalating anti-MRSA therapy. A positive result may indicate colonization with MRSA and must be correlated clinically. Clostridioides difficile toxin Ag, Reflex - Stool, Per Rectum [[id number]] (Normal) Collected: 06/26/2545 Lab Status: Final result Specimen: Stool from Per Rectum Updated: 06/26/25835 C.diff Toxin Ag Negative Narrative: DNA from a toxigenic strain of C.difficile was detected, although the free toxin itself was not detected. These findings are consistent with C.difficile colonization and may not reflect actual C.difficile infection. Clinical correlation needed. Blood Culture - Blood, Hand, Right [[id number]] (Abnormal) Collected: 06/25/252029 Lab Status: Preliminary result Specimen: Blood from Hand, Right Updated: 06/27/25 0618 Blood Culture Gram Positive Cocci Isolated from Anaerobic Bottle Gram Stain Anaerobic Bottle Gram positive cocci in chains Narrative: Less than seven (7) mL's of blood was collected. Insufficient quantity may yield false negative results. Blood Culture ID, PCR - Blood, Hand, Right [[id number]] (Abnormal) Collected: 06/25/252029 Lab Status: Final result Specimen: Blood from Hand, Right Updated: 06/26/252101 BCID, PCR Enterococcus faecium. Zee/B (vancomycin resistance gene) not detected. Identification byBCID2 PCR. BOTTLE TYPE Anaerobic Bottle Narrative: Infectious disease consultation is highly recommended to rule out distant foci of infection. Urine Culture - Urine, Indwelling Urethral Catheter [[id number]] (Abnormal) Collected: 06/25/252000 Lab Status: Preliminary result Specimen: Urine from Indwelling Urethral Catheter Updated: 06/26/25 1401 Urine Culture >100,000 CFU/mL Proteus species Narrative: Colonization of the urinary tract without infection is common. Treatment is discouraged unless the patient is symptomatic, , or undergoing an invasive urologic procedure. Blood Culture - Blood, Arm, Left [[id number]] (Normal) Collected: 06/25/25 1820 Lab Status: Preliminary result Specimen: Blood from Arm, Left Updated: 06/26/25 1931 Blood Culture No growth at 24 hours Wound Culture - Swab, Foot, Left [[id number]] Collected: 06/25/25 1818 Lab Status: Preliminary result Specimen: Swab from Foot, Left Updated: 06/26/25 1014 Wound Culture Growth present, too young to evaluate Gram Stain Few (2+) WBCs seen Few (2+) Gram positive cocci in pairs, chains and clusters Few (2+) Gram negative bacilli Reported Vancomycin Levels InsightRX AUC Calculation: Current AUC: n/a mg/L*hr Predicted Steady State AUC on Current Dose: n/a mg/L*hr Predicted Steady State AUC on New Dose: 551 mg/L*hr Assessment/Plan: Vancomycin dosing for bacteremia Goal AUC: 400-600 mg/L*hr 06/27 SCr - 0.92 06/27 WBC - 9.98 24hr tmax - 98.2 Order initial vancomycin 2500mg x1 Followed by vancomycin 1250mg q12h Obtain vancomycin level 10/16 am BMP x3 days Monitor renal function, clinical status and infusion related reactions Follow vancomycin levels and adjust dose accordingly Osmany Richard RPH 06/27/2025 08:14 EDT * Gautam Tubbs MD - 06/26/2025 10:46 AM EDTAssociated Problem(s): Type 2 diabetes mellitus, with long-term current use of insulin * Gautam Tubbs MD - 06/26/2025 10:46 AM EDTAssociated Problem(s): Cellulitis * Gautam Tubbs MD - 06/26/2025 10:46 AM EDTAssociated Problem(s): Acute UTI (urinary tract infection) * Gautam Tubbs MD - 06/26/2025 10:46 AM EDTAssociated Problem(s): Diarrhea of presumed infectious origin * Gautam Tubbs MD - 06/26/2025 10:46 AM EDTAssociated Problem(s): Acute on chronic blood loss anemia * Gautam Tubbs MD - 06/26/2025 10:46 AM EDTAssociated Problem(s): BPH without obstruction/lower urinary tract symptoms * Gautam Tubbs MD - 06/26/2025 10:46 AM EDTAssociated Problem(s): GERD without esophagitis * Gautam Tubbs MD - 06/26/2025 10:46 AM EDTAssociated Problem(s): Bilateral inguinal hernia - Recommend watchful waiting - Patient is poor operative candidate, would not recommend elective repair if asymptomatic - Surgery to sign off, follow-up PRN Management of remainder of hospital diagnoses per hospitalist and vascular surgery team, appreciateassistance. * Gautam Tubbs MD - 06/26/2025 10:46 AM EDTAssociated Problem(s): Severe sepsis * Gautam Tubbs MD - 06/26/2025 10:46 AM EDTAssociated Problem(s): Primary hypertension * Gautam Tubbs MD - 06/26/2025 10:46 AM EDTAssociated Problem(s): Seizure disorder * Gautam Tubbs MD - 06/26/2025 10:46 AM EDTAssociated Problem(s): Coronary artery disease involving [place] coronary artery of [place] heart without angina pectoris * Gautam Tubbs MD - 06/26/2025 10:46 AM EDTAssociated Problem(s): PAD (peripheral artery disease) * Hiro Santillan MD - 06/26/2025 6:28 AM EDT Images from the original note were not included. [facility] Medicine Services PROGRESS NOTE Patient Name: Trung Pool : 1955 Date of Admission: 06/25/2025 Primary Care Physician: Gustavo Mehta MD Subjective Subjective CC: Follow-up sepsis HPI: No acute events overnight, patient continues to have some abdominal pain Objective Objective Vital Signs: Temp: [97.7 ??F (36.5 ??C)-98.3 ??F (36.8 ??C)] 97.9 ??F (36.6 ??C) Heart Rate: [56-89] 89 Resp: [12-18] 16 BP: (108-157)/(50-99) 124/82 Physical Exam: Constitutional: Chronically ill-appearing elderly male, unkempt HENT: NCAT, mucous membranes moist Respiratory: Clear to auscultation bilaterally, respiratory effort normal Cardiovascular: RRR, no murmurs, rubs, or gallops Gastrointestinal: Positive bowel sounds, soft, tender to palpation Musculoskeletal: Left foot stump with some drainage, underlying erythema, chronic venous stasis Psychiatric: Appropriate affect, cooperative Neurologic: Oriented x 3, nonfocal Skin: No rashes Results Reviewed: LAB RESULTS: Lab 06/25/251816 WBC 9.96 HEMOGLOBIN 8.9* HEMATOCRIT 29.8* PLATELETS 281 NEUTROS ABS 7.05* IMMATURE GRANS (ABS) 0.05 LYMPHS ABS 1.48 MONOS ABS 1.01* EOS ABS 0.32 MCV 76.2* CRP 4.34* PROCALCITONIN 0.12 LACTATE 1.7 Lab 06/25/251816 SODIUM 138 POTASSIUM 4.4 CHLORIDE 106 CO2 21.2* ANION GAP 10.8 BUN 27.3* CREATININE 1.21 EGFR 64.0 GLUCOSE 173* CALCIUM 8.3* Lab 06/25/251816 TOTAL PROTEIN 7.2 ALBUMIN 3.2* GLOBULIN 4.0 ALT (SGPT) 14 AST (SGOT) 15 BILIRUBIN 0.2 ALK PHOS 127* Brief Urine Lab Results (Last result in the past 365 days) Color Clarity Blood Leuk Est Nitrite Protein CREAT Urine HCG 06/25/252000 Yellow Turbid Large (3+) Large (3+) Positive Trace Microbiology Results Abnormal None CT Angiogram Lower Extremity Left Result Date: 06/26/2025 CT ANGIOGRAM LOWER EXTREMITY LEFT Date of Exam: 06/26/2025 4:18 AM EDT Indication: Left leg limb ischemia. Comparison: Correlation with CT abdomen and pelvis 06/25/2025. Technique: CTA of the left lower extremity was performed before and after the uneventful intravenous administration of iodinated c ontrast. Reconstructed coronal and sagittal images were also obtained. In addition, a 3-D volume rendered image was created for interpretation. Automated exposure control and iterative reconstructionmethods were used. Findings: CT angiography: There is moderate disease in the visualized aorta above the bifurcation. There is mild nonstenosing disease in the common iliac arteries. There is mild nonstenosing disease in the external iliac arteries and similar mild disease present in the internal iliac arteries. Right lower extremity: Patient is status post mwcnl-mdh-kwzr amputation. There is mild disease in the SEWING SUPERVISOR and SFA. The PFA is occluded proximally with reconstitution. There is moderate segmental stenosing disease in the remainder of the SFA. Left lower extremity: Minimal SEWING SUPERVISOR disease. PFA is patent. There is mild SFA disease with moderate focal narrowing at the junction of the SFA and popliteal artery. The zmuwj-ler-lfta popliteal artery appears otherwise widely patent. There is mild below the knee popliteal artery disease. There appears to be embolization of the peroneal artery.Patency of the anterior and posterior tibial arteries is difficult to assess due to significant venous contamination and heavy calcification. Definite runoff into the left foot is seen in the posterior tibial artery. 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 Nonvascular findings: There is severe diffuse atrophy in the left lower extremity musculature particularly below the knee. The bones are markedly demineralized in the left foreleg. There is muscular atrophy in the right thigh. There is a moderate sized fat and sigmoid colon containing left inguinal hernia and a small fat-containing right inguinal hernia. There is marked urinary bladder wall thickening. IVC filter is partially seen and discussed on previous reports. The appendix is normal. There is no pelvic ascites. No acute osseous abnormality. There are moderate to severe lower lumbar degenerative changes. Impression: Impression: 1.There is mild disease in the left lower extremity with moderate focal narrowing at the junction of the SFA and popliteal artery. There appears to be embolization of the leftleft peroneal artery. Patency of the anterior and posterior tibial arteries is difficult to assess due to significant venous contamination and heavy calcification. Definite runoff into the left foot is seen in the posterior tibial artery. 2.Status post right umylh-ldx-fmbk amputation. There is occlusion of the proximal right PFA with reconstitution. 3.Severe diffuse atrophy in the left lower extremity musculature. 4.Moderate sized fat and sigmoid colon containing left inguinal hernia and small fat- containing right inguinal hernia. 5.Marked urinary bladder wall thickening. Correlate for cystitis. Electronically Signed: Hussain Lyles MD 06/26/2025 5:08 AM EDT Workstation ID: [id number] XR Chest 1 View Result Date: 06/26/2025 XR CHEST 1 VW Date of Exam: 06/26/2025 3:07 AM EDT Indication: cough. Comparison: 06/02/2025 Findings: Cardiomegaly is stable. Pulmonary vascularity is normal. There is atherosclerotic disease in the aorta. Mild right basilar atelectasis may be present. Lungs are otherwise clear. No pneumothorax. There is degenerative disease in the shoulders. Impression: Cardiomegaly with possible mild right basilar atelectasis. Electronically Signed: Brent Lubin MD 06/26/2025 4:13 AM EDT Workstation ID: [id number] CT Abdomen Pelvis With Contrast Addendum Date: 06/25/2025 ADDENDUM #1 IVC filter is present on imaging study. It is recommended that all patients with IVC filters in place have an active management care plan to monitor their IVC filter. If a care plan is not in place, patient should have a non emergent referral to an interventional specialist such as interventional radiology or other interventional vascular specialist for establishment of an IVC filter management care plan. Electronically Signed: Nehemias Ferraro 06/25/2025 9:53 PM EDT Workstation ID: [id number] ORIGINAL REPORT: CT ABDOMEN PELVIS W CONTRAST Date of Exam: 06/25/2025 7:05 PM EDT Indication:Diarrhea, hematuria, abdominal discomfort. Comparison: 06/02/2025 Technique: Axial CT images were obt ained of the abdomen and pelvis following the uneventful intravenous administration of iodinated contrast. Reconstructed coronal and sagittal images were also obtained. Automated exposure control anditerative construction methods were used. Findings: Calcific atherosclerosis of the coronary arteries. No pleural or pericardial effusion. No suspicious infiltrate in the lower lungs. No definite ectopic bowel gas. No splenomegaly or suspicious splenic lesion. No suspicious hepatic abnormality. No definite acute biliary abnormality. No suspicious splenic or pancreatic abnormality. Aorta appears normal in caliber. There is calcific atherosclerosis of the aorta and branch vessels. IVC filter is present, as before. Lymph nodes do not appear significantly enlarged. Probable small bilateral upper pole renal cysts. There is expected excretion of contrast from the kidneys. No hydronephrosis. No dilated small bowel loops. No definite acute gastric abnormality. Small fat-containing umbilical hernia. There are bilateral inguinal hernias. Smaller right inguinal hernia contains fat. Larger left inguinal hernia contains a partial loop of sigmoid colon. No proximal dilatation. The appendix appears within normal limits. No definite findings of acute colonic inflammation. The bladder is moderately distended. Small amount of gas is present in the bladder, as before. Bladder wall thickening appearsmildly decreased since the prior exam. Prostate does not appear significantly enlarged. De Los Santos catheter balloon and tip appears to terminate in the proximal penile urethra. There is some questionable wall thickening of the distal rectum. No other definite perirectal abnormality. There appears to be mild asymmetric prominence of the left inguinal lymph nodes. Severe left and moderate right hip osteoarthritis. Advanced degenerative changes in the lumbar spine. Mild chronic T11 and T12 height loss,as before. There is ankylosis at the sacroiliac joints. No visualized aggressive osseous lesion. Impression: 1.De [place] Santos catheter balloon and tip appear to terminate in the proximal penile urethra. Recommend repositioning. 2.Moderate distention of the bladder with small amount of gas in the bladder, asbefore. Bladder wall thickening appears mildly decreased since the prior exam. Correlate with urinalysis. 3.Questionable wall thickening of the distal rectum. Correlate for symptoms of proctitis. 4.Bilateral inguinal hernias, larger on the left containing a partial loop of sigmoid colon. No proximal dilatation. 5.Mild asymmetric prominence of the left inguinal lymph nodes, likely reactive. Clinical follow-up recommended. 6.Calcific atherosclerosis. The ordering provider was notified of the results by Dr. Ferraro at 06/25/2025 7:54 PM EDT. Electronically Signed: Nehemias Ferraro 06/25/2025 7:55 PM EDT Workstation ID: [id number] Result Date: 06/25/2025 CT ABDOMEN PELVIS W CONTRAST Date of Exam: 06/25/2025 7:05 PM EDT Indication: Diarrhea, hematuria, abdominal discomfort. Comparison: 06/02/2025 Technique: Axial CT images were obtained of the abdomen and pelvis following the uneventful intravenous administration of iodinated contrast. Reconstructed coronal and sagittal images were also obtained. Automated exposure control and iterative construction methods were used. Findings: Calcific atherosclerosis of the coronary arteries. No pleural or pericardial effusion. No suspicious infiltrate in the lower lungs. No definite ectopic bowel gas. No splenomegaly or suspicious splenic lesion. No suspicious hepatic abnormality. No definite acute biliary abnormality. No suspicious splenic or pancreatic abnormality. Aorta appears normal in caliber. There is calcific atherosclerosis of the aorta and branch vessels. IVC filter is present, as before. Lymph nodes do not appear significantly enlarged. Probable small bilateral upper pole renal cysts. There is expected excretion of contrast from the kidneys. No hydronephrosis. No dilated small bowel loops. No definite acute gastric abnormality. Small fat- containing umbilical hernia. There are bilateralinguinal hernias. Smaller right inguinal hernia contains fat. Larger left inguinal hernia contains a partial loop of sigmoid colon. No proximal dilatation. The appendix appears within normal limits. No definite findings of acute colonic inflammation. The bladder is moderately distended. Small amount of gas is present in the bladder, as before. Bladder wall thickening appears mildly decreased since the prior exam. Prostate does not appear significantly enlarged. De Los Santos catheter balloon and tip appears to terminate in the proximal penile urethra. There is some questionable wall thickening of thedistal rectum. No other definite perirectal abnormality. There appears to be mild asymmetric prominence of the left inguinal lymph nodes. Severe left and moderate right hip osteoarthritis. Advanced degenerative changes in the lumbar spine. Mild chronic T11 and T12 height loss, as before. There is ankylosis at the sacroiliac joints. No visualized aggressive osseous lesion. Impression: Impression: 1.De Los Santos catheter balloon and tip appear to terminate in the proximal penileurethra. Recommend repositioning. 2.Moderate distention of the bladder with small amount of gas in the bladder, as before. Bladder wall thickening appears mildly decreased since the prior exam. Correlate with urinalysis. 3.Questionable wall thickening of the distal rectum. Correlate for symptoms ofproctitis. 4.Bilateral inguinal hernias, larger on the left containing a partial loop of sigmoid colon. No proximal dilatation. 5.Mild asymmetric prominence of the left inguinal lymph nodes, likely reactive. Clinical follow-up recommended. 6.Calcific atherosclerosis. The ordering provider was notified of the results by Dr. Ferraro at 06/25/2025 7:54 PM EDT. Electronically Signed: Nehemias Ferraro 06/25/2025 7:55 PM EDT Workstation ID: [id number] XR Foot 3+ View Left Result Date: 06/25/2025 XR FOOT 3+ VW LEFT Date of Exam: 06/25/2025 6:15 PM EDT Indication: diabetic ulcer. Comparison: August 2024 Findings: Bones are grossly osteopenic. There is marked soft tissue swelling overlying dorsum of the foot and at the stump distal to the metatarsal ray resection sites. There is shallow soft tissue ulceration at the dorsum of the foot distally. 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 There is dense vascular calcification noted. Impression: Impression: Marked soft tissue swelling at the stump and dorsum of the foot suggest cellulitis.. Small shallow soft tissue ulceration distal dorsum of the foot No acute osseous abnormality. If there is concern for osteomyelitis MRI is recommended. Electronically Signed: Duglas Lay MD 06/25/2025 7:03 PM EDT Workstation ID: [id number] Results for orders placed during the hospital encounter of 08/31/24 Adult Transthoracic Echo Complete W/ Cont if Necessary Per Protocol 09/12/2024 4:10 PM Interpretation Summary ??? Left ventricular systolic function is normal. Calculated left ventricular EF = 52.5% ??? There is a trivial pericardial effusion. ??? The aortic valve exhibits sclerosis. ??? Mitral annular calcification is present. I have personally reviewed the therapy plans: [] PT/OT/ ST Therapy Plans Current medications: Scheduled Meds:[Held by provider] apixaban, 5 mg, Oral, BID vitamin C, 500 mg, Oral, Daily baclofen, 10 mg, Oral, Q12H carvedilol, 3.125 mg, Oral, BID With Meals clopidogrel, 75 mg, Oral, Daily DAPTOmycin, 6 mg/kg (Adjusted), Intravenous, Q24H finasteride, 5 mg, Oral, Daily folic acid, 1 mg, Oral, Daily gabapentin, 200 mg, Oral, Q8H insulin glargine, 56 Units, Subcutaneous, Nightly lamoTRIgine, 100 mg, Oral, Daily lamoTRIgine, 250 mg, Oral, Nightly methenamine, 1 g, Oral, BID With Meals multivitamin with minerals, 1 tablet, Oral, Daily pantoprazole, 40 mg, Oral, BID piperacillin-tazobactam, 4.5 g, Intravenous, Q8H sacubitril-valsartan, 1 tablet, Oral, BID sodium chloride, 10 mL, Intravenous, Q12H Continuous Infusions:sodium chloride, 75 mL/hr, Last Rate: 75 mL/hr (06/26/25 0626) PRN Meds:.??? acetaminophen OR acetaminophen OR acetaminophen ??? aluminum-magnesium hydroxide-simethicone ??? senna-docusate sodium AND polyethylene glycol AND bisacodyl AND bisacodyl ??? Calcium Replacement - Follow Nurse / BPA Driven Protocol ??? ipratropium-albuterol ??? Magnesium Cardiology Dose Replacement - Follow Nurse / BPA Driven Protocol ??? Morphine AND naloxone ??? nitroglycerin ??? ondansetron ??? Phosphorus Replacement - Follow Nurse / BPA Driven Protocol ??? Potassium Replacement - Follow Nurse / BPA Driven Protocol ??? Insert Peripheral IV AND sodium chloride ??? sodium chloride Assessment & Plan Assessment & Plan Active Hospital Problems Diagnosis POA ??? Severe sepsis [A41.9, R65.20] Yes ??? Acute UTI (urinary tract infection) [N39.0] Yes ??? Diarrhea of presumed infectious origin [R19.7] Yes ??? Acute on chronic blood loss anemia [D62] Yes ??? BPH without obstruction/lower urinary tract symptoms [N40.0] Yes ??? GERD without esophagitis [K21.9] Yes ??? Bilateral inguinal hernia [K40.20] Yes ??? Cellulitis [L03.90] Yes ??? Type 2 diabetes mellitus, with long-term current use of insulin [E11.9, Z79.4] Not Applicable ??? PAD (peripheral artery disease) [I73.9] Yes ??? Coronary artery disease involving [place] coronary artery of [place] heart without angina pectoris [I25.10] Yes ??? Seizure disorder [G40.909] Yes ??? Primary hypertension [I10] Yes Resolved Hospital Problems No resolved problems to display. Brief Hospital Course to date: Trung Pool is a 70-year-old male with a history of coronary artery disease, peripheral artery disease, type 2 diabetes mellitus (on insulin), right above- knee amputation, and seizure disorder, who was admitted with hematuria, left foot stump drainage, fatigue, and diarrhea. Severe PAD History of right BKA: LLE revascularization and toe amputation Cellulitis and Left Lower Extremity Wound - Patient has increased redness, fluid drainage and ulceration of the left stump - Imaging shows marked soft tissue swelling and ulceration of the stump consistent with cellulitis,follow-up MRI - Continue antibiotics with daptomycin and Zosyn, ID following, discussed with Dr. Andres, agrees with MRI to rule out osteo - Follow-up CT angio left lower extremity, left lower extremity arterial Dopplers - Vascular surgery consulted in the evaluation follows with Dr. Concepcion - Resume Plavix, holding Eliquis secondary to hematuria - Patient has been adamant about not having any more amputation Acute UTI and hematuria History of BPH -He reported blood in his urine with associated odor and had a De Los Santos catheter in place. -UA with 4+ bacteria TNTC WBC -CT imaging revealed moderate bladder distention, small amount of gas in the bladder, and mildly decreased bladder wall thickening compared to prior exam. - H&H stable, continue holding Eliquis for now -Catheter in place, continue finasteride Concern for infectious diarrhea - He had watery diarrhea since the prior Wednesday, partially responsive to outpatient treatment. - Follow-up GI PCR panel, C. difficile toxin is positive but antigen negative suggest colonization - CT imaging suggestive of proctitis - Continue antibiotics as above, ID consulted and are following Addendum: GI PCR is positive for norovirus, MRSA PCR+ Acute on Chronic anemia, possible blood loss -Continue to monitor H&H, holding of Eliquis -Transfuse PRBC if hemoglobin<7 Type 2 diabetes - Previously well-controlled with A1c 7.6 (08/2024), follow-up A1c - Continue SSI Seizure disorder - Continue lamotrigine GERD without Esophagitis He has a history of gastroesophageal reflux disease without esophagitis, and was continued on a proton pump inhibitor. Bilateral Inguinal Hernia, incidental finding on CT -CT imaging revealed bilateral inguinal hernias, larger on the left containing a partial loop of sigmoid colon, without proximal dilatation. - General surgery consult Medical noncompliance All problems listed above are new to me today Expected Discharge Location and Transportation: TBD Expected Discharge Expected Discharge Date: 06/27/2025; Expected Discharge Time: VTE Prophylaxis: Pharmacologic VTE prophylaxis orders are present. AM-PAC 6 Clicks Score (PT): 11 (06/26/25 0044) CODE STATUS: Code Status and Medical Interventions: CPR (Attempt to Resuscitate); Full Support Ordered at: 06/25/25 2310 Code Status (Patient has no pulse and is not breathing): CPR (Attempt to Resuscitate) Medical Interventions (Patient has pulse or is breathing): Full Support Level Of Support Discussed With: Patient Hiro Santillan MD 06/26/25 documented in this encounter H&P Notes * Amanda Bermudez MD - 06/25/2025 10:22 PM EDT Images from the original note were not included. [facility] Medicine Services HISTORY AND PHYSICAL Patient Name: Trung Pool : 1955 Primary Care Physician: Gustavo Mehta MD Date of admission: 06/25/2025 Subjective Subjective Chief Complaint: Blood in urine, foot draining, fatigue, diarrhea since last Wednesday HPI: Trung Pool is a 70 y.o. male male with of CAD, PAD, Type 2 diabetes and history of right leg BKA amputation who presents to the emergency department with self-reported blood in his urine, left foot stump drainage, fatigue, and diarrhea. The patient reports having blood in his urine with associated bad odor. He has been experiencing severe fatigue. He has had diarrhea since last Wednesday, for which his primary care doctor prescribed medication that provided some relief. His last bowel movement was yesterday and remained watery despite treatment. Regarding his left leg, he reports that his foot has been throbbing and burning for approximately the last 6 months. He notes increased redness of the leg compared to usual and reports fluid leakage from the foot stump area. The foot was described as draining real bad. He states he can feel the area but it does not hurt. He does not follow with a vascular surgeon. The patient has Type 2 diabetes and uses an insulin pen nightly before bed. He did not take his insulin before coming to the hospital. He quit smoking 15 years ago and has not consumed alcohol for a long time. He uses plant brownies for pain and nausea management. He lives independently and uses an electric wheelchair for mobility. Home health services began visiting 3 days per week starting one week ago. Personal History Past Medical History: Diagnosis Date ??? Anemia ??? Cellulitis ??? Diabetes mellitus ??? Frequent falls ??? History of DVT (deep vein thrombosis) ??? Hyperlipidemia ??? Hypertension ??? Migraines ??? Myocardial infarction ??? Peripheral neuropathy ??? Pneumonia ??? Spinal stenosis ??? Wears dentures FULL ??? Wears glasses Past Surgical History: Procedure Laterality Date ??? ABOVE KNEE AMPUTATION Right ??? AMPUTATION DIGIT Left 01/28/2024 Procedure: SECOND AND THIRD TOE AMPUTATION LEFT; Surgeon: Cecil Buenrostro Jr., MD; Location: [facility]; Service: Orthopedics; Laterality: Left; ??? ANTERIOR CERVICAL DISCECTOMY W/ FUSION Bilateral 07/17/2020 Procedure: Cervical discectomy anterior with fusion C3-4; Surgeon: Tyree Tan MD; Location:[facility]; Service: Neurosurgery; Laterality: Bilateral; ??? AORTOGRAM N/A 01/26/2024 Procedure: ABDOMINAL AORTIC ANGIOGRAM, LLE ANGIOGRAM, LEFT ANTERIOR TIBIAL ATHERECTOMY, LEFT ANTERIOR TIBIAL ANGIOPLASTY; Surgeon: Archie Olvera MD; Location: [facility]; Service: Vascular; Laterality: N/A; CONTRAST: 50 ML, FT: 2 MIN 54 SEC, DOSE: 66 MGY. ??? BACK SURGERY FOR DISC HERNIATION ??? CARDIAC CATHETERIZATION ??? CARDIAC CATHETERIZATION N/A 09/04/2024 Procedure: Peripheral angiography - Left lower extremity angio - Right femoral access; Surgeon: Jared Marcano MD; Location: [facility]; Service: Peripheral Vascular; Laterality: N/A; ??? CORONARY ANGIOPLASTY WITH STENT PLACEMENT stent x 1 ??? INCISION AND DRAINAGE FOOT Left 06/17/2023 Procedure: LEFT FOOT DEBRIDEMENT WOUND VACUUM ASSISTED CLOSURE; Surgeon: Cecil Buenrostro Jr., MD;Location: [facility]; Service: Orthopedics; Laterality: Left; ??? INCISION AND DRAINAGE LEG Left 07/25/2023 Procedure: INCISION AND DRAINAGE HEEL, WOUND VAC; Surgeon: Cecil Buenrostro Jr., MD; Location: [facility]; Service: Orthopedics; Laterality: Left; ??? INTERVENTIONAL RADIOLOGY PROCEDURE N/A 05/02/2019 Procedure: IVC FILTER PLACEMENT; Surgeon: Pedro Zapien MD; Location: [facility]; Service: Interventional Radiology ??? INTERVENTIONAL RADIOLOGY PROCEDURE Left 09/07/2024 Procedure: LEFT peroneal arteriovenous fistula embolization - Right femoral access; Surgeon: Jared Marcano MD; Location: [facility]; Service: Cardiovascular; Laterality: Left; Please coordinate with Gautam Patel ([facility]) [phone] who will bring coils ??? LUMBAR DISCECTOMY N/A 05/03/2019 Procedure: THORACIC LAMINECTOMY T11-12; Surgeon: Tyree Tan MD; Location: [facility]; Service: Neurosurgery Family History: family history includes Alcohol abuse in his father. Social History: reports that he has never smoked. He has never been exposed to tobacco smoke. He has never used smokeless tobacco. He reports current drug use. Drug: Marijuana. He reports that he does not drink alcohol. Social History Social History Narrative ??? Not on file Medications: Available home medication information reviewed. BASAGLAR KWIKPEN, apixaban, baclofen, carvedilol, clopidogrel, finasteride, folic acid, furosemide,gabapentin, lamoTRIgine, methenamine, multivitamin with minerals, ondansetron, pantoprazole, sacubitril-valsartan, and vitamin C Allergies[1] Objective Objective Vital Signs: Temp: [98.3 ??F (36.8 ??C)] 98.3 ??F (36.8 ??C) Heart Rate: [56-84] 77 Resp: [12-18] 17 BP: (108-157)/(50-90) 157/90 Physical Exam Vitals reviewed. Constitutional: General: He is not in acute distress. Appearance: Normal appearance. He is obese. HENT: Head: Normocephalic and atraumatic. Right Ear: External ear normal. Left Ear: External ear normal. Nose: Nose normal. Mouth/Throat: Mouth: Mucous membranes are dry. Eyes: General: No scleral icterus. Extraocular Movements: Extraocular movements intact. Pupils: Pupils are equal, round, and reactive to light. Cardiovascular: Rate and Rhythm: Normal rate and regular rhythm. Pulses: Normal pulses. Heart sounds: Normal heart sounds. No murmur heard. Pulmonary: Effort: Pulmonary effort is normal. No respiratory distress. Breath sounds: Normal breath sounds. No stridor. No wheezing. Abdominal: General: Bowel sounds are normal. There is no distension. Palpations: Abdomen is soft. Tenderness: There is abdominal tenderness. There is no guarding. Hernia: A hernia is present. Comments: Tenderness in left lower quadrant Genitourinary: Comments: De Los Santos in place Musculoskeletal: General: Deformity present. No swelling. Cervical back: Normal range of motion and neck supple. Comments: R BKA L transmetatarsal amputation Skin: General: Skin is warm and dry. Capillary Refill: Capillary refill takes less than 2 seconds. Coloration: Skin is not jaundiced. Findings: Erythema and lesion present. Comments: 2 to 3 cm ulceration on the dorsal aspect left foot stump; yellow in color Left lower extremity is dry, flaky, and erythematous Neurological: General: No focal deficit present. Mental Status: He is alert and oriented to person, place, and time. Cranial Nerves: No cranial nerve deficit. Sensory: Sensory deficit present. Motor: Weakness present. Gait: Gait abnormal. Psychiatric: Mood and Affect: Mood normal. Behavior: Behavior normal. Thought Content: Thought content normal. Result Review: I have personally reviewed the results from the time of this admission to 06/26/2025 00:11 EDT and agree with these findings: [x] Laboratory list / accordion [x] Microbiology [x] Radiology [x] EKG/Telemetry [] Cardiology/Vascular [] Pathology [x] Old records [] Other: Most notable findings include: LAB RESULTS: Lab 06/25/251816 WBC 9.96 HEMOGLOBIN 8.9* HEMATOCRIT 29.8* PLATELETS 281 NEUTROS ABS 7.05* IMMATURE GRANS (ABS) 0.05 LYMPHS ABS 1.48 MONOS ABS 1.01* EOS ABS 0.32 MCV 76.2* CRP 4.34* PROCALCITONIN 0.12 LACTATE 1.7 Lab 06/25/251816 SODIUM 138 POTASSIUM 4.4 CHLORIDE 106 CO2 21.2* ANION GAP 10.8 BUN 27.3* CREATININE 1.21 EGFR 64.0 GLUCOSE 173* CALCIUM 8.3* Lab 06/25/251816 TOTAL PROTEIN 7.2 ALBUMIN 3.2* GLOBULIN 4.0 ALT (SGPT) 14 AST (SGOT) 15 BILIRUBIN 0.2 ALK PHOS 127* UA 06/02/2025 12:31 06/25/2025 20:01 Urinalysis Squamous Epithelial Cells, UA Unable to determine due to loaded field 0-2 Specific [place], UA 1.019 1.011 Ketones, UA Negative Negative Blood, UA Large (3+) Large (3+) Leukocytes, UA Large (3+) Large (3+) Nitrite, UA Positive Positive RBC, UA Too Numerous to Count 6-10 WBC, UA Too Numerous to Count Too Numerous to Count Bacteria, UA 4+ 4+ Microbiology Results (last 10 days) Procedure Component Value - Date/Time Wound Culture - Swab, Foot, Left [[id number]] Collected: 06/25/251817 Lab Status: Preliminary result Specimen: Swab from Foot, Left Updated: 06/25/252205 Gram Stain Few (2+) WBCs seen Few (2+) Gram positive cocci in pairs, chains and clusters Few (2+) Gram negative bacilli CT Abdomen Pelvis With Contrast Addendum Date: 06/25/2025 ADDENDUM #1 IVC filter is present on imaging study. It is recommended that all patients with IVC filters in place have an active management care plan to monitor their IVC filter. If a care plan is not in place, patient should have a non emergent referral to an interventional specialist such as interventional radiology or other interventional vascular specialist for establishment of an IVC filter management care plan. Electronically Signed: Nehemias Ferraro 06/25/2025 9:53 PM EDT Workstation ID: [id number] ORIGINAL REPORT: CT ABDOMEN PELVIS W CONTRAST Date of Exam: 06/25/2025 7:05 PM EDT Indication:Diarrhea, hematuria, abdominal discomfort. Comparison: 06/02/2025 Technique: Axial CT images were obt ained of the abdomen and pelvis following the uneventful intravenous administration of iodinated contrast. Reconstructed coronal and sagittal images were also obtained. Automated exposure control anditerative construction methods were used. Findings: Calcific atherosclerosis of the coronary arteries. No pleural or pericardial effusion. No suspicious infiltrate in the lower lungs. No definite ectopic bowel gas. No splenomegaly or suspicious splenic lesion. No suspicious hepatic abnormality. No definite acute biliary abnormality. No suspicious splenic or pancreatic abnormality. Aorta appears normal in caliber. There is calcific atherosclerosis of the aorta and branch vessels. IVC filter is present, as before. Lymph nodes do not appear significantly enlarged. Probable small bilateral upper pole renal cysts. There is expected excretion of contrast from the kidneys. No hydronephrosis. No dilated small bowel loops. No definite acute gastric abnormality. Small fat-containing umbilical hernia. There are bilateral inguinal hernias. Smaller right inguinal hernia contains fat. Larger left inguinal hernia contains a partial loop of sigmoid colon. No proximal dilatation. The appendix appears within normal limits. No definite findings of acute colonic inflammation. The bladder is moderately distended. Small amount of gas is present in the bladder, as before. Bladder wall thickening appearsmildly decreased since the prior exam. Prostate does not appear significantly enlarged. [place] catheter balloon and tip appears to terminate in the proximal penile urethra. There is some questionable wall thickening of the distal rectum. No other definite perirectal abnormality. There appears to be mild asymmetric prominence of the left inguinal lymph nodes. Severe left and moderate right hip osteoarthritis. Advanced degenerative changes in the lumbar spine. Mild chronic T11 and T12 height loss,as before. There is ankylosis at the sacroiliac joints. No visualized aggressive osseous lesion. Impression: 1.De [place] catheter balloon and tip appear to terminate in the proximal penile urethra. Recommend repositioning. 2.Moderate distention of the bladder with small amount of gas in the bladder, asbefore. Bladder wall thickening appears mildly decreased since the prior exam. Correlate with urinalysis. 3.Questionable wall thickening of the distal rectum. Correlate for symptoms of proctitis. 4.Bilateral inguinal hernias, larger on the left containing a partial loop of sigmoid colon. No proximal dilatation. 5.Mild asymmetric prominence of the left inguinal lymph nodes, likely reactive. Clinical follow-up recommended. 6.Calcific atherosclerosis. The ordering provider was notified of the results by Dr. Ferraro at 06/25/2025 7:54 PM EDT. Electronically Signed: Nehemias Ferraro 06/25/2025 7:55 PM EDT Workstation ID: [id number] Result Date: 06/25/2025 CT ABDOMEN PELVIS W CONTRAST Date of Exam: 06/25/2025 7:05 PM EDT Indication: Diarrhea, hematuria, abdominal discomfort. Comparison: 06/02/2025 Technique: Axial CT images were obtained of the abdomen and pelvis following the uneventful intravenous administration of iodinated contrast. Reconstructed coronal and sagittal images were also obtained. Automated exposure control and iterative construction methods were used. Findings: Calcific atherosclerosis of the coronary arteries. No pleural or pericardial effusion. No suspicious infiltrate in the lower lungs. No definite ectopic bowel gas. No splenomegaly or suspicious splenic lesion. No suspicious hepatic abnormality. No definite acute biliary abnormality. No suspicious splenic or pancreatic abnormality. Aorta appears normal in caliber. There is calcific atherosclerosis of the aorta and branch vessels. IVC filter is present, as before. Lymph nodes do not appear significantly enlarged. Probable small bilateral upper pole renal cysts. There is expected excretion of contrast from the kidneys. No hydronephrosis. No dilated small bowel loops. No definite acute gastric abnormality. Small fat- containing umbilical hernia. There are bilateralinguinal hernias. Smaller right inguinal hernia contains fat. Larger left inguinal hernia contains a partial loop of sigmoid colon. No proximal dilatation. The appendix appears within normal limits. No definite findings of acute colonic inflammation. The bladder is moderately distended. Small amount of gas is present in the bladder, as before. Bladder wall thickening appears mildly decreased since the prior exam. Prostate does not appear significantly enlarged. De Los Santos catheter balloon and tip appears to terminate in the proximal penile urethra. There is some questionable wall thickening of thedistal rectum. No other definite perirectal abnormality. There appears to be mild asymmetric prominence of the left inguinal lymph nodes. Severe left and moderate right hip osteoarthritis. Advanced degenerative changes in the lumbar spine. Mild chronic T11 and T12 height loss, as before. There is ankylosis at the sacroiliac joints. No visualized aggressive osseous lesion. Impression: Impression: 1.De [place] Santos catheter balloon and tip appear to terminate in the proximal penileurethra. Recommend repositioning. 2.Moderate distention of the bladder with small amount of gas in the bladder, as before. Bladder wall thickening appears mildly decreased since the prior exam. Correlate with urinalysis. 3.Questionable wall thickening of the distal rectum. Correlate for symptoms ofproctitis. 4.Bilateral inguinal hernias, larger on the left containing a partial loop of sigmoid colon. No proximal dilatation. 5.Mild asymmetric prominence of the left inguinal lymph nodes, likely reactive. Clinical follow-up recommended. 6.Calcific atherosclerosis. The ordering provider was notified of the results by Dr. Ferraro at 06/25/2025 7:54 PM EDT. Electronically Signed: Nehemias Ferraro 06/25/2025 7:55 PM EDT Workstation ID: [id number] XR Foot 3+ View Left Result Date: 06/25/2025 XR FOOT 3+ VW LEFT Date of Exam: 06/25/2025 6:15 PM EDT Indication: diabetic ulcer. Comparison: August 2024 Findings: Bones are grossly osteopenic. There is marked soft tissue swelling overlying dorsum of the foot and at the stump distal to the metatarsal ray resection sites. There is shallow soft tissue ulceration at the dorsum of the foot distally. 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 There is dense vascular calcification noted. Impression: Impression: Marked soft tissue swelling at the stump and dorsum of the foot suggest cellulitis.. Small shallow soft tissue ulceration distal dorsum of the foot No acute osseous abnormality. If there is concern for osteomyelitis MRI is recommended. Electronically Signed: Duglas Lay MD 06/25/2025 7:03 PM EDT Workstation ID: [id number] Results for orders placed during the hospital encounter of 08/31/24 Adult Transthoracic Echo Complete W/ Cont if Necessary Per Protocol 09/12/2024 4:10 PM Interpretation Summary ??? Left ventricular systolic function is normal. Calculated left ventricular EF = 52.5% ??? There is a trivial pericardial effusion. ??? The aortic valve exhibits sclerosis. ??? Mitral annular calcification is present. Assessment & Plan Assessment & Plan Severe sepsis PAD (peripheral artery disease) Cellulitis Acute UTI (urinary tract infection) Primary hypertension Seizure disorder Coronary artery disease involving [place] coronary artery of [place] heart without angina pectoris Type 2 diabetes mellitus, with long-term current use of insulin Diarrhea of presumed infectious origin Acute on chronic blood loss anemia BPH without obstruction/lower urinary tract symptoms GERD without esophagitis Bilateral inguinal hernia Mr. Trung Pool is a male with Type 2 diabetes, PAD and history of right leg amputation who presents with hematuria, infected foot drainage, diarrhea since last Wednesday, and fatigue.The left foot showing signs of cellulitis with increased redness, fluid drainage, and throbbing pain over the past 6 months in the setting of previous amputation due to gangrene raises concern for recurrent infection or vascular compromise. Given the patient's diabetic history and previous gangrene, there is significant risk for serious soft tissue infection requiring aggressive antibiotic treatment and vascular surgery evaluation.The combination of multiple active infections, diabetes management issues (patient d id not take insulin before arrival), and recent need for home health services indicates complex medical needs requiring inpatient management. Severe sepsis multiple sources include: LLE cellulitis and UTI rule out infectious diarrhea History of recurrent left lower extremity cellulitis and wounds - Admit to medicine with telemetry monitoring -Initiate sepsis protocol: IV fluids, IV empiric antibiotics: Daptomycin and Zosyn; trend lactate, procal, urine studies, blood cultures; check CXR -Fluid management: IV fluid sepsis bolus: 2.8L IV maintenance fluids: 75cc/hr x 24hrs -Consult to wound care for left lower extremity limb assessment --Obtain EKG, check cardiac enzymes --Prior urine Cx 06/02: Positive for Proteus ESBL and E. Coli Consult infectious disease in the morning for antibiotic guidance -Acute diarrhea: Check GI PCR panel if further episodes and C. Difficile -De Los Santos catheter in place -CT abd scan: Moderate distention of the bladder with small amount of gas in the bladder, as before. Bladder wall thickening, Questionable wall thickening of the distal rectum. Correlate for symptomsof proctitis. - Pulmonary toilet: Incentive spirometer, OPEP, duonebs 2. Severe PAD Hx of Right BKA; LLE revascularization and toes amputation -Imaging: CTA angio LLE to assess anatomy of arterial system for presence of plaque or clots -Check LLE arterial Doppler to assess blood flow and venous duplex to rule out VTE. -Check MRI to assess for osteomyelitis -pulse checks with dopplers -Pain management: IV morphine, resume home dose gabapentin and baclofen -Resume Plavix holding Eliquis due to self-reported hematuria - Mobility: Patient is wheelchair-bound and lives alone PT/OT eval consult to case management regarding placement --Consult vascular surgery in morning 3. T2DM -last A1C 7.6 (-2023) - Insulin sliding scale while inpatient glucose checks every 6 hours -Basal insulin dose: 56 units - Repeat A1c and lipid panel with a.m. labs 4. Acute on chronic anemia --H/H 8.9/29 MCV 76 patient reported hematuria in the ER -UA+ RBC and blood Continue to monitor closely off home dose Eliquis- holding off anticoagulationovernight - Type and screen transfuse for hemoglobin less than 7g/dL 5. HTN Hx of CAD - Resume home dose Coreg + plavix + Entresto 6. GERD BPH -continue PPI - Continue home dose finasteride 7. History of seizure disorder - Continue home dose lamotrigine 8. Bilateral inguinal hernias - Incidental finding on CT: Bilateral inguinal hernias, larger on the left containing a partial loop of sigmoid colon. - Consult to general surgeon in the morning Total time spent: 45 minutes Time spent includes time reviewing chart, [id number] time, counseling patient/family/caregiver, ordering medications/tests/procedures, communicating with other health healthcare specialist, documenting clinical information in the electronic health record, and coordination of care. VTE Prophylaxis: Pharmacologic VTE prophylaxis orders are signed & held. CODE STATUS: Code Status and Medical Interventions: CPR (Attempt to Resuscitate); Full Support Ordered at: 06/25/25 2310 Code Status (Patient has no pulse and is not breathing): CPR (Attempt to Resuscitate) Medical Interventions (Patient has pulse or is breathing): Full Support Level Of Support Discussed With: Patient Expected Discharge Expected Discharge Date: 06/27/2025; Expected Discharge Time: Amanda Bermudez MD 06/26/25 [1] Allergies Allergen Reactions ??? Keppra [Levetiracetam] Other (See Comments) Acute psychosis ??? Bupropion Unknown (See Comments) ??? Codeine Nausea Only ??? Hydrocodone Unknown (See Comments) ??? Ketorolac Tromethamine Unknown (See Comments) documented in this encounter Consult Notes * Stacey Garcia RN - 07/25/2025 4:35 PM ESTAssociated Order(s): IP CONSULT TO HOSPICE Continued Stay Note COLLIN Fernando Patient Name: Trung Pool Today's Date: 07/25/2025 Admit Date: 06/25/2025 Plan: To be determined Discharge Plan Row Name 07/25/25 1626 Plan Plan To be determined Plan Comments Spoke with Talisha PAREKH, palliative care, regarding meeting Talisha had with pt and pt's sister. Talisha stated pt is wanting to go [facility] with hosp[facility]. Pt's first choice is [facility]. Visit made to pt, pt reiterated wants to go to [facility] with hospice, pt aware unlesshas senior living care insurance, insurance, nor medicare will pay for [facility]. This curriculum writer is uncertain if pt would qualify for medicaid. Informed pt that the nurse outreach case manager will work with pt regarding placement. liaison planner will continue to follow. Please call [phone] if can be of further assistance. Discharge Codes No documentation. Expected Discharge Date and Time Expected Discharge Date Expected Discharge Time Jul 23, 2025 Stacey Garcia RN * Cuco Posada MD - 07/15/2025 5:35 PM ESTAssociated Order(s): IP CONSULT TO NEUROLOGY Neurology Note Patient: Trung Pool DATE OF : 1955 REFERRING PHYSICIAN: Dr. Eckert CHIEF COMPLAINT: AMS HISTORY OF PRESENT ILLNESS: The patient is a 70 y.o. male with h/o DM with neuropathy, anxiety, documented PNES, on Lamictal, admitted for sepsis 0n 06/25, recurrent diabetic foot infection, recommended foot amputation. He developed some agitation and delirium last night, received Zyprexa 7.5 mg po, doing better today. RN reports that he has been alert and cooperative, no seizures noted. Past Medical History: Past Medical History: Diagnosis Date Anemia Cellulitis Diabetes mellitus Frequent falls History of DVT (deep vein thrombosis) Hyperlipidemia Hypertension Migraines Myocardial infarction Peripheral neuropathy Pneumonia Spinal stenosis Wears dentures FULL Wears glasses Past Surgical History: Past Surgical History: Procedure Laterality Date ABOVE KNEE AMPUTATION Right AMPUTATION DIGIT Left 01/28/2024 Procedure: SECOND AND THIRD TOE AMPUTATION LEFT; Surgeon: Cecil Buenrostro Jr., MD; Location: [facility]; Service: Orthopedics; Laterality: Left; ANTERIOR CERVICAL DISCECTOMY W/ FUSION Bilateral 07/17/2020 Procedure: Cervical discectomy anterior with fusion C3-4; Surgeon: Tyree Tan MD; Location: [facility]; Service: Neurosurgery; Laterality: Bilateral; AORTOGRAM N/A 01/26/2024 Procedure: ABDOMINAL AORTIC ANGIOGRAM, LLE ANGIOGRAM, LEFT ANTERIOR TIBIAL ATHERECTOMY, LEFT ANTERIOR TIBIAL ANGIOPLASTY; Surgeon: Archie Olvera MD; Location: [facility]; Service: Vascular; Laterality: N/A; CONTRAST: 50 ML, FT: 2 MIN 54 SEC, DOSE: 66 MGY. AORTOGRAM Left 07/03/2025 Procedure: ARTERIOGRAM LOWER EXTREMITY; Surgeon: Vaughn Hollingsworth DO; Location: [facility]; Service: Vascular; Laterality: Left; FT-6MINS 24SEC 140 MGY CONTRAST -15ML BACK SURGERY FOR DISC HERNIATION CARDIAC CATHETERIZATION CARDIAC CATHETERIZATION N/A 09/04/2024 Procedure: Peripheral angiography - Left lower extremity angio - Right femoral access; Surgeon: Jared Marcano MD; Location: [facility]; Service: Peripheral Vascular; Laterality: N/A; CORONARY ANGIOPLASTY WITH STENT PLACEMENT stent x 1 INCISION AND DRAINAGE FOOT Left 06/17/2023 Procedure: LEFT FOOT DEBRIDEMENT WOUND VACUUM ASSISTED CLOSURE; Surgeon: Cecil Buenrostro Jr., MD;Location: [facility]; Service: Orthopedics; Laterality: Left; INCISION AND DRAINAGE LEG Left 07/25/2023 Procedure: INCISION AND DRAINAGE HEEL, WOUND VAC; Surgeon: Cecil Buenrostro Jr., MD; Location: [facility]; Service: Orthopedics; Laterality: Left; INCISION AND DRAINAGE LEG Left 07/03/2025 Procedure: DEBRIDEMENT WOUND, PLACEMENT OF WOUND VAC; Surgeon: Vaughn Hollingsworth DO; Location: [facility]; Service: Vascular; Laterality: Left; INTERVENTIONAL RADIOLOGY PROCEDURE N/A 05/02/2019 Procedure: IVC FILTER PLACEMENT; Surgeon: Pedro Zapien MD; Location: [facility]; Service: Interventional Radiology INTERVENTIONAL RADIOLOGY PROCEDURE Left 09/07/2024 Procedure: LEFT peroneal arteriovenous fistula embolization - Right femoral access; Surgeon: Jared Marcano MD; Location: [facility]; Service: Cardiovascular; Laterality: Left; Please coordinate with Gautam Patel ([facility]) [phone] who will bring coils LUMBAR DISCECTOMY N/A 05/03/2019 Procedure: THORACIC LAMINECTOMY T11-12; Surgeon: Tyree Tan MD; Location: [facility]; Service: Neurosurgery Social History: Social History Socioeconomic History Marital status: Single Tobacco Use Smoking status: Never Passive exposure: Never Smokeless tobacco: Never Vaping Use Vaping status: Never Used Substance and Sexual Activity Alcohol use: Never Drug use: Yes Types: Marijuana Sexual activity: Defer Family History: Family History Problem Relation Name Age of Onset Alcohol abuse Father Medications Prior to Admission: Prior to Admission medications Medication Sig Start Date End Date Taking? Authorizing Provider apixaban (ELIQUIS) 5 MG tablet tablet Take 1 tablet by mouth 2 (Two) Times a Day. Yes Dario Tatum MD baclofen (LIORESAL) 10 MG tablet Take 1 tablet by mouth Every 12 (Twelve) Hours. 08/14/23 Yes Carter Mendieta APRN carvedilol (COREG) 3.125 MG tablet Take 1 tablet by mouth 2 (Two) Times a Day With Meals. 09/17/24 Yes Ju Gonzalez APRN clopidogrel (PLAVIX) 75 MG tablet Take 1 tablet by mouth Daily. 02/05/24 Yes Alondra Lanza MD finasteride (PROSCAR) 5 MG tablet Take 1 tablet by mouth Daily. 09/17/24 Yes Ju Gonzalez APRN folic acid (FOLVITE) 1 MG tablet Take 1 tablet by mouth Daily. Yes Dario Tatum MD furosemide (LASIX) 40 MG tablet Take 1 tablet by mouth Daily. 04/03/20 Yes Dario Tatum MD gabapentin (NEURONTIN) 100 MG capsule Take 2 capsules by mouth 3 (Three) Times a Day As Needed. YesDario Tatum MD Insulin Glargine (BASAGLAR KWIKPEN) 100 UNIT/ML injection pen Inject 56 Units under the skin into the appropriate area as directed Every Night. For 30 days 01/10/24 Yes Dario Tatum MD lamoTRIgine (LaMICtal) 100 MG tablet Take 1 tablet by mouth 2 (Two) Times a Day. 100mg AM + 250mg PM 07/15/23 Yes Chinyere Hensley APRN lamoTRIgine (LaMICtal) 150 MG tablet Take 1 tablet by mouth Every Night. Patient takes 100 mg in AM, 250 mg in PM Yes Dario Tatum MD methenamine (HIPREX) 1 g tablet Take 1 tablet by mouth 2 (Two) Times a Day With Meals. Yes Dario Tatum MD multivitamin with minerals tablet tablet Take 1 tablet by mouth Daily. Yes Dario Tatum MD ondansetron (ZOFRAN) 4 MG tablet Take 1 tablet by mouth Every 8 (Eight) Hours As Needed for Nausea or Vomiting. Yes Dario Tatum MD pantoprazole (PROTONIX) 40 MG EC tablet Take 1 tablet by mouth 2 (Two) Times a Day. Yes Dario Tatum MD sacubitril-valsartan (ENTRESTO) 24-26 MG tablet Take 1 tablet by mouth 2 (Two) Times a Day. Yes Dario Tatum MD vitamin C (ASCORBIC ACID) 250 MG tablet Take 2 tablets by mouth Daily. Yes Dario Tatum MD Allergies: Keppra [levetiracetam], Bupropion, Codeine, Hydrocodone, and Ketorolac tromethamine Review of system Review of Systems Neurological: Negative for seizures. All other systems reviewed and are negative. Vitals: 07/15/25 1439 BP: 115/56 Pulse: 91 Resp: 16 Temp: 97.6 ??F (36.4 ??C) SpO2: 92% Physical exam Physical Exam Eyes: Extraocular Movements: Extraocular movements intact. Cardiovascular: Rate and Rhythm: Normal rate and regular rhythm. Pulmonary: Effort: Pulmonary effort is normal. Neurological: Mental Status: He is alert and oriented to person, place, and time. Comments: Speech is clear, VFF, no facial droop, moves limbs against gravity. Lab Results Component Value Date WBC 8.08 07/15/2025 HGB 8.9 (L) 07/15/2025 HCT 30.1 (L) 07/15/2025 MCV 80.9 07/15/2025 PLT 210 07/15/2025 Lab Results Component Value Date GLUCOSE 98 07/15/2025 BUN 25.4 (H) 07/15/2025 CREATININE 0.74 (L) 07/15/2025 EGFRIFNONA 104 11/06/2021 EGFRIFAFRI >60 05/22/2022 BCR 34.3 (H) 07/15/2025 CO2 18.8 (L) 07/15/2025 CALCIUM 8.6 07/15/2025 ALBUMIN 3.0 (L) 06/26/2025 AST 15 06/26/2025 ALT 13 06/26/2025 Radiological Studies: EEG Result Date: 07/04/2025 Reason for referral: 70 y.o.male with seizure-like activity Technical Summary: A 19 channel digitalEEG was performed using the international 10-20 placement system, including eye leads and EKG leads. Duration: 27 minutes Findings: At the beginning of the study, the patient is noted to be a unresponsive to the technologist. He is having irregular coarse jerking of his left arm and his head is leaning to the right. The EEG background shows diffuse low amplitude 5 to 6 Hz theta present symmetrically over both hemispheres. Movement artifact is variably prominent in the left posterior electrodes (the patient's head is leaning to the left). Over the course of the study, no epileptiform activity or electrographic seizures are seen. The left arm tremoring continues variably throughout the entirestudy and has no associated EEG change. Photic stimulation does not change the background. Video: Available Technical quality: Good SUMMARY: EEG background is mild generalized slowing without focal features seen Near constant left arm tremoring has no EEG correlate and appears nonepileptic No epileptiform activity or electrographic seizures are seen Diffuse cerebral dysfunction of mild degree, nonspecific but most commonly seen due to toxic/metabolic cause Left arm tremoring is nonepileptic This report is transcribed using the [employer] dictation system. CT Head Without Contrast Result Date: 07/03/2025 CT HEAD WO CONTRAST Date of Exam: 07/03/2025 8:35 PM EDT Indication: altered mental status. Comparison: None available. Technique: Axial CT images were obtained of the head without contrast administration. Automated exposure control and iterative construction methods were used. FINDINGS: Gutierrez-white differentiation is maintained and there is no evidence of intracranial hemorrhage, mass or mass effect. Age-related changes of the brain are present including volume loss and typical periventricular sequela of chronic small vessel ischemia. There is otherwise no evidence of intracranial hemorrhage,mass or mass effect. The ventricles are normal in size and configuration accounting for surroundingvolume loss. The orbits are normal and the paranasal sinuses are grossly clear. Age-related changes of the brain as above, otherwise without evidence of acute intracranial abnormality. Electronically Signed: Ravi Swatrz MD 07/03/2025 9:11 PM EDT Workstation ID: [id number] MRI Foot Left Without Contrast Result Date: 06/26/2025 MRI FOOT LEFT WO CONTRAST Date of Exam: 06/26/2025 8:12 PM EDT Indication: Assess for osteomyelitis. Status post amputation. Wound in stump. Comparison: Left foot radiographs 06/25/2025, left foot MRI 01/15/2024 Technique: Routine multiplanar/multisequence sequence images of the left foot were obtained without contrast administration. Findings: There is a nondisplaced intra-articular fracture across the distal tibia with associated marrow edema. This may be acute to subacute. Posterior and plantar calcaneal enthesophytes are present. There is distal Achilles tendinopathy with increased signal in the substance of the tendon. As seen radiographically, the patient is status post transmetatarsal a mputation at the level of the metatarsal diaphyses. Within the distal first and second metatarsal diaphyses at the resection margins, there is some edema noted on the T1 and T2 weighted images, and as such, osteomyelitis is not excluded. No other changes of potential osteomyelitis are identified. There is diffuse soft tissue edema and skin thickening about the remaining foot, particularly along th e dorsal side and distally at the stump compatible with cellulitis. Edema extends throughout the subcutaneous tissues on the dorsum of the foot and in the stump. No definite abscess is seen allowing for the lack of contrast. 1.Status post transmetatarsal amputation at the level of the metatarsal diaphyses. There is some edema in the distal first and second metatarsal diaphyses at the resection margins, and as such, osteomyelitis is not excluded. 2.Diffuse soft tissue edema and skin thickening about the remaining foot, p articularly along the dorsal side and distally at the stump compatible with cellulitis. No definiteabscess is seen allowing for the lack of contrast. 3.Nondisplaced intra-articular fracture of the distal tibia with associated marrow edema. This may be acute to subacute. 4.Distal Achilles tendinopathy. Electronically Signed: Brent Lubin MD 06/26/2025 10:08 PM EDT Workstation ID: [id number] Duplex Venous Lower Extremity - Left CAR Result Date: 06/26/2025 Normal left lower extremity venous duplex scan. Duplex Lower Extremity Art / Grafts - Left CAR Result Date: 06/26/2025 Abnormal waveforms suggest inflow (aortoiliac) disease. At least moderate (60% (stenosis in the left SFA. The left CHIP appears to be occluded filling via collaterals retrograde. CT Angiogram Lower Extremity Left Result Date: 06/26/2025 CT ANGIOGRAM LOWER EXTREMITY LEFT Date of Exam: 06/26/2025 4:18 AM EDT Indication: Left leg limb ischemia. Comparison: Correlation with CT abdomen and pelvis 06/25/2025. Technique: CTA of the left lower extremity was performed before and after the uneventful intravenous administration of iodinated c ontrast. Reconstructed coronal and sagittal images were also obtained. In addition, a 3-D volume rendered image was created for interpretation. Automated exposure control and iterative reconstructionmethods were used. Findings: CT angiography: There is moderate disease in the visualized aorta above the bifurcation. There is mild nonstenosing disease in the common iliac arteries. There is mild nonstenosing disease in the external iliac arteries and similar mild disease present in the internal iliac arteries. Right lower extremity: Patient is status post yshwz-syp-awdt amputation. There is mild disease in the SEWING SUPERVISOR and SFA. The PFA is occluded proximally with reconstitution. There is moderate segmental stenosing disease in the remainder of the SFA. Left lower extremity: Minimal SEWING SUPERVISOR disease. PFA is patent. There is mild SFA disease with moderate focal narrowing at the junction of the SFA and popliteal artery. The baizn-uot-teex popliteal artery appears otherwise widely patent. There is mild below the knee popliteal artery disease. There appears to be embolization of the peroneal artery.Patency of the anterior and posterior tibial arteries is difficult to assess due to significant venous contamination and heavy calcification. Definite runoff into the left foot is seen in the posterior tibial artery. 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 Nonvascular findings: There is severe diffuse atrophy in the left lower extremity musculature particularly below the knee. The bones are markedly demineralized in the left foreleg. There is muscular atrophy in the right thigh. There is a moderate sized fat and sigmoid colon containing left inguinal hernia and a small fat-containing right inguinal hernia. There is marked urinary bladder wall thickening. IVC filter is partially seen and discussed on previous reports. The appendix is normal. There is no pelvic ascites. No acute osseous abnormality. There are moderate to severe lower lumbar degenerative changes. Impression: 1.There is mild disease in the left lower extremity with moderate focal narrowing at the junction of the SFA and popliteal artery. There appears to be embolization of the left left peroneal artery. Patency of the anterior and posterior tibial arteries is difficult to assess due to significant venous contamination and heavy calcification. Definite runoff into the left foot is seen in the posterior tibial artery. 2.Status post right jwjqv-xhw-smyw amputation. There is occlusion of theproximal right PFA with reconstitution. 3.Severe diffuse atrophy in the left lower extremity musculature. 4.Moderate sized fat and sigmoid colon containing left inguinal hernia and small fat-containing right inguinal hernia. 5.Marked urinary bladder wall thickening. Correlate for cystitis. Electronically Signed: Hussain Lyles MD 06/26/2025 5:08 AM EDT Workstation ID: [id number] XR Chest 1 View Result Date: 06/26/2025 XR CHEST 1 VW Date of Exam: 06/26/2025 3:07 AM EDT Indication: cough. Comparison: 06/02/2025 Findings: Cardiomegaly is stable. Pulmonary vascularity is normal. There is atherosclerotic disease in the aorta. Mild right basilar atelectasis may be present. Lungs are otherwise clear. No pneumothorax. There is degenerative disease in the shoulders. Cardiomegaly with possible mild right basilar atelectasis. Electronically Signed: Brent Lubin MD 06/26/2025 4:13 AM EDT Workstation ID: [id number] CT Abdomen Pelvis With Contrast Addendum Date: 06/25/2025 ADDENDUM #1 IVC filter is present on imaging study. It is recommended that all patients with IVC filters in place have an active management care plan to monitor their IVC filter. If a care plan is not in place, patient should have a non emergent referral to an interventional specialist such as interventional radiology or other interventional vascular specialist for establishment of an IVC filter management care plan. Electronically Signed: Nehemias Ferraro 06/25/2025 9:53 PM EDT Workstation ID: [id number] ORIGINAL REPORT: CT ABDOMEN PELVIS W CONTRAST Date of Exam: 06/25/2025 7:05 PM EDT Indication:Diarrhea, hematuria, abdominal discomfort. Comparison: 06/02/2025 Technique: Axial CT images were obt ained of the abdomen and pelvis following the uneventful intravenous administration of iodinated contrast. Reconstructed coronal and sagittal images were also obtained. Automated exposure control anditerative construction methods were used. Findings: Calcific atherosclerosis of the coronary arteries. No pleural or pericardial effusion. No suspicious infiltrate in the lower lungs. No definite ectopic bowel gas. No splenomegaly or suspicious splenic lesion. No suspicious hepatic abnormality. No definite acute biliary abnormality. No suspicious splenic or pancreatic abnormality. Aorta appears normal in caliber. There is calcific atherosclerosis of the aorta and branch vessels. IVC filter is present, as before. Lymph nodes do not appear significantly enlarged. Probable small bilateral upper pole renal cysts. There is expected excretion of contrast from the kidneys. No hydronephrosis. No dilated small bowel loops. No definite acute gastric abnormality. Small fat-containing umbilical hernia. There are bilateral inguinal hernias. Smaller right inguinal hernia contains fat. Larger left inguinal hernia contains a partial loop of sigmoid colon. No proximal dilatation. The appendix appears within normal limits. No definite findings of acute colonic inflammation. The bladder is moderately distended. Small amount of gas is present in the bladder, as before. Bladder wall thickening appearsmildly decreased since the prior exam. Prostate does not appear significantly enlarged. De Los Santos catheter balloon and tip appears to terminate in the proximal penile urethra. There is some questionable wall thickening of the distal rectum. No other definite perirectal abnormality. There appears to be mild asymmetric prominence of the left inguinal lymph nodes. Severe left and moderate right hip osteoarthritis. Advanced degenerative changes in the lumbar spine. Mild chronic T11 and T12 height loss,as before. There is ankylosis at the sacroiliac joints. No visualized aggressive osseous lesion. Impression: 1.De Los Santos catheter balloon and tip appear to terminate in the proximal penile urethra. Recommend repositioning. 2.Moderate distention of the bladder with small amount of gas in the bladder, asbefore. Bladder wall thickening appears mildly decreased since the prior exam. Correlate with urinalysis. 3.Questionable wall thickening of the distal rectum. Correlate for symptoms of proctitis. 4.Bilateral inguinal hernias, larger on the left containing a partial loop of sigmoid colon. No proximal dilatation. 5.Mild asymmetric prominence of the left inguinal lymph nodes, likely reactive. Clinical follow-up recommended. 6.Calcific atherosclerosis. The ordering provider was notified of the results by Dr. Ferraro at 06/25/2025 7:54 PM EDT. Electronically Signed: Nehemias Ferraro 06/25/2025 7:55 PM EDT Workstation ID: [id number] Result Date: 06/25/2025 CT ABDOMEN PELVIS W CONTRAST Date of Exam: 06/25/2025 7:05 PM EDT Indication: Diarrhea, hematuria, abdominal discomfort. Comparison: 06/02/2025 Technique: Axial CT images were obtained of the abdomen and pelvis following the uneventful intravenous administration of iodinated contrast. Reconstructed coronal and sagittal images were also obtained. Automated exposure control and iterative construction methods were used. Findings: Calcific atherosclerosis of the coronary arteries. No pleural or pericardial effusion. No suspicious infiltrate in the lower lungs. No definite ectopic bowel gas. No splenomegaly or suspicious splenic lesion. No suspicious hepatic abnormality. No definite acute biliary abnormality. No suspicious splenic or pancreatic abnormality. Aorta appears normal in caliber. There is calcific atherosclerosis of the aorta and branch vessels. IVC filter is present, as before. Lymph nodes do not appear significantly enlarged. Probable small bilateral upper pole renal cysts. There is expected excretion of contrast from the kidneys. No hydronephrosis. No dilated small bowel loops. No definite acute gastric abnormality. Small fat- containing umbilical hernia. There are bilateralinguinal hernias. Smaller right inguinal hernia contains fat. Larger left inguinal hernia contains a partial loop of sigmoid colon. No proximal dilatation. The appendix appears within normal limits. No definite findings of acute colonic inflammation. The bladder is moderately distended. Small amount of gas is present in the bladder, as before. Bladder wall thickening appears mildly decreased since the prior exam. Prostate does not appear significantly enlarged. De Los Santos catheter balloon and tip appears to terminate in the proximal penile urethra. There is some questionable wall thickening of thedistal rectum. No other definite perirectal abnormality. There appears to be mild asymmetric prominence of the left inguinal lymph nodes. Severe left and moderate right hip osteoarthritis. Advanced degenerative changes in the lumbar spine. Mild chronic T11 and T12 height loss, as before. There is ankylosis at the sacroiliac joints. No visualized aggressive osseous lesion. Impression: 1.De Los Santos catheter balloon and tip appear to terminate in the proximal penile urethra. Recommend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 sweats. Appetite good, and no malaise. No fatigue. Heent-- No new vision, hearing or throat complaints. No epistaxis or oral sores. Denies odynophagiaor dysphagia. No flashers, floaters or eye pain. No odynophagia or dysphagia. No headache, photophobia or neck stiffness. CV-- No chest pain, palpitation or syncope Resp-- No SOB/cough/Hemoptysis GI- No hematochezia, melena, or hematemesis. Denies jaundice or chronic liver disease. -- chronic De Los Santos catheter, denies flank pain Lymph- no swollen lymph nodes in neck/axilla or groin. Heme- No active bruising or bleeding; no Hx of DVT or PE. MS-- no swelling or pain in the bones or joints of arms/legs. No new back pain. Neuro-- No acute focal weakness or numbness in the arms or legs. Chronically debilitated Full 12 point review of systems reviewed and negative otherwise for acute complaints, except for above Physical Exam: Vital Signs BP 103/81 (BP Location: Left arm, Patient Position: Lying) Pulse 76 Temp 98 ??F (36.7 ??C) Resp 16 Ht 182.9 cm (72 ) Wt 114 kg (251 lb 5.2 oz) SpO2 97% BMI 34.09 kg/m?? GENERAL: Awake and alert, in no acute distress. Chronically ill HEENT: Normocephalic, atraumatic. No conjunctival injection. No [...] mass or HSM. EXT: see below : Genitalia generally unremarkable. With De [place] Santos catheter. MSK: FROM without joint effusions noted arms/legs. SKIN: Warm and dry without cutaneous eruptions on Inspection/palpation. NEURO: Oriented to PPT. He has difficult time cooperate with a detailed motor/sensory exam Left foot amputation noted with wounds and adherent slough type material but unable to express any purulence and depth unclear. No probed to bone at present. Vague erythema from mid burrell to foot withsome white scale but no discrete mass bulge or fluctuance. No crepitus or bulla Right side amputation no obvious open wound or new redness/induration Laboratory Data Results from last 7 days Lab Units 06/27/25 0400 06/26/25 0740 06/25/25 1817 WBC 10*3/mm3 9.98 9.69 9.96 HEMOGLOBIN g/dL 9.4* 8.8* 8.9* HEMATOCRIT % 30.4* 29.3* 29.8* PLATELETS 10*3/mm3 274 271 281 Results from last 7 days Lab Units 06/27/25 0400 SODIUM mmol/L 139 POTASSIUM mmol/L 4.3 CHLORIDE mmol/L 109* CO2 mmol/L 20.3* BUN mg/dL 15.3 CREATININE mg/dL 0.92 GLUCOSE mg/dL 91 CALCIUM mg/dL 8.1* Results from last 7 days Lab Units 06/26/25 0741 ALK PHOS U/L 116 BILIRUBIN mg/dL 0.2 ALT (SGPT) U/L 13 AST (SGOT) U/L 15 Results from last 7 days Lab Units 06/25/25 1817 CRP mg/dL 4.34* Estimated Creatinine Clearance: 96 mL/min (by C-G formula based on SCr of 0.92 mg/dL). Microbiology: Radiology: Imaging Results (Last 72 Hours) Procedure Component Value Units Date/Time MRI Foot Left Without Contrast [[id number]] Collected: 06/26/252153 Updated: 06/26/252210 Narrative: MRI FOOT LEFT WO CONTRAST Date of Exam: 06/26/2025 8:12 PM EDT Indication: Assess for osteomyelitis. Status post amputation. Wound in stump. Comparison: Left foot radiographs 06/25/2025, left foot MRI 01/15/2024 Technique: Routine multiplanar/multisequence sequence images of the left foot were obtained withoutcontrast administration. Findings: There is a nondisplaced intra-articular fracture across the distal tibia with associated marrow edema. This may be acute to subacute. Posterior and plantar calcaneal enthesophytes are present. There is distal Achilles tendinopathy with increased signal in the substance of the tendon. As seen radiographically, the patient is status post transmetatarsal amputation at the level of the metatarsal diaphyses. Within the distal first and second metatarsal diaphyses at the resection margins, there is some edema noted on the T1 and T2 weighted images, and as such, osteomyelitis is not excluded. No other changes of potential osteomyelitis are identified. There is diffuse soft tissue edema and skin thi ckening about the remaining foot, particularly along the dorsal side and distally at the stump compatible with cellulitis. Edema extends throughout the subcutaneous tissues on the dorsum of the foot and in the stump. No definite abscess is seen allowing for the lack of contrast. Impression: 1.Status post transmetatarsal amputation at the level of the metatarsal diaphyses. There is some edema in the distal first and second metatarsal diaphyses at the resection margins, and as such, osteomyelitis is not excluded. 2.Diffuse soft tissue edema and skin thickening about the remaining foot, particularly along the dorsal side and distally at the stump compatible with cellulitis. No definite abscess is seen allowingfor the lack of contrast. 3.Nondisplaced intra-articular fracture of the distal tibia with associated marrow edema. This may be acute to subacute. 4.Distal Achilles tendinopathy. Electronically Signed: Brent Lubin MD 06/26/2025 10:08 PM EDT Workstation ID: [id number] CT Angiogram Lower Extremity Left [[id number]] Collected: 06/26/25 0500 Updated: 06/26/25 05 Narrative: CT ANGIOGRAM LOWER EXTREMITY LEFT Date of Exam: 06/26/2025 4:18 AM EDT Indication: Left leg limb ischemia. Comparison: Correlation with CT abdomen and pelvis 06/25/2025. Technique: CTA of the left lower extremity was performed before and after the uneventful intravenous administration of iodinated contrast. Reconstructed coronal and sagittal images were also obtained. In addition, a 3-D volume rendered image was created for interpretation. Automated exposure control and iterative reconstruction methods were used. Findings: CT angiography: There is moderate disease in the visualized aorta above the bifurcation. There is mild nonstenosing disease in the common iliac arteries. There is mild nonstenosing disease in the external iliac arteries and similar mild disease present in the internal iliac arteries. Right lower extremity: Patient is status post yudjf-lkh-egzs amputation. There is mild disease in the SEWING SUPERVISOR and SFA. The PFA is occluded proximally with reconstitution. There is moderate segmental stenosing disease in the remainder of the SFA. Left lower extremity: Minimal SEWING SUPERVISOR disease. PFA is patent. There is mild SFA disease with moderate focal narrowing at the junction of the SFA and popliteal artery. The mjxdi-zlx-jhnw popliteal artery appears otherwise widely patent. There is mild below the knee popliteal artery disease. There appears to be embolization of the peroneal artery. Patency of the anterior and posterior tibial arteries is difficult to assess due to significant venous contamination and heavy calcification. Definite runoff into the left foot is seen in the posterior tibial artery. 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 Nonvascular findings: There is severe diffuse atrophy in the left lower extremity musculature particularly below the knee. The bones are markedly demineralized in the left foreleg. There is muscular atrophy in the right thigh. There is a moderate sized fat and sigmoid colon containing left inguinalhernia and a small fat-containing right inguinal hernia. There is marked urinary bladder wall thickening. IVC filter is partially seen and discussed on previous reports. The appendix is normal. Thereis no pelvic ascites. No acute osseous abnormality. There are moderate to severe lower lumbar degenerative changes. Impression: Impression: 1.There is mild disease in the left lower extremity with moderate focal narrowing at the junction of the SFA and popliteal artery. There appears to be embolization of the left left peroneal artery. Patency of the anterior and posterior tibial arteries is difficult to assess due to significant venous contamination and heavy calcification. Definite runoff into the left foot is seen in the posterior tibial artery. 2.Status post right uhcvf-caj-huwd amputation. There is occlusion of the proximal right PFA with reconstitution. 3.Severe diffuse atrophy in the left lower extremity musculature. 4.Moderate sized fat and sigmoid colon containing left inguinal hernia and small fat-containing right inguinal hernia. 5.Marked urinary bladder wall thickening. Correlate for cystitis. Electronically Signed: Hussain Lyles MD 06/26/2025 5:08 AM EDT Workstation ID: [id number] XR Chest 1 View [[id number]] Collected: 06/26/25411 Updated: 06/26/25415 Narrative: XR CHEST 1 VW Date of Exam: 06/26/2025 3:07 AM EDT Indication: cough. Comparison: 06/02/2025 Findings: Cardiomegaly is stable. Pulmonary vascularity is normal. There is atherosclerotic disease in the aorta. Mild right basilar atelectasis may be present. Lungs are otherwise clear. No pneumothorax. There is degenerative disease in the shoulders. Impression: Cardiomegaly with possible mild right basilar atelectasis. Electronically Signed: Brent Lubin MD 06/26/2025 4:13 AM EDT Workstation ID: [id number] CT Abdomen Pelvis With Contrast [[id number]] Collected: 06/25/251937 Updated: 06/25/252155 Addenda: ADDENDUM #1 IVC filter is present on imaging study. It is recommended that all patients with IVC filters in place have an active management care plan to monitor their IVC filter. If a care plan is not in place, patient should have a non emergent referral to an interventional specialist such as interventional radiology or other interventional vascular specialist for establishment of an IVC filter management care plan. Electronically Signed: Nehemias Ferraro 06/25/2025 9:53 PM EDT Workstation ID: [id number] ORIGINAL REPORT: CT ABDOMEN PELVIS W CONTRAST Date of Exam: 06/25/2025 7:05 PM EDT Indication: Diarrhea, hematuria, abdominal discomfort. Comparison: 06/02/2025 Technique: Axial CT images were obtained of the abdomen and pelvis following the uneventful intravenous administration of iodinated contrast. Reconstructed coronal and sagittal images were also obtained. Automated exposure control and iterative construction methods were used. Findings: Calcific atherosclerosis of the coronary arteries. No pleural or pericardial effusion. No suspicious infiltrate in the lower lungs. No definite ectopic bowel gas. No splenomegaly or suspicious splenic lesion. No suspicious hepatic abnormality. No definite acute biliary abnormality. No suspicious splenic or pancreatic abnormality. Aorta appears normal in caliber. There is calcific atherosclerosis of the aorta and branch vessels. IVC filter is present, as before. Lymph nodes do not appear significantly enlarged. Probable small bilateral upper pole renal cysts. There is expected excretion of contrast from the kidneys. No hydronephrosis. No dilated small bowel loops. No definite acute gastric abnormality. Small fat-containing umbilical hernia. There are bilateral inguinal hernias. Smaller right inguinal hernia contains fat. Larger left inguinal hernia contains a partial loop of sigmoid colon. No proximal dilatation. The appendix appears within normal limits. No definite findings of acute colonic inflammation. The bladder is moderately distended. Small amount of gas is present in the bladder, as before. Bladder wall thickening appears mildly decreased since the prior exam. Prostate does not appear significantly enlarged. De Los Santos catheter balloon and tip appears to terminate in the proximal penile urethra. There is some questionable wall thickening of the distal rectum. No other definite perirectal abnormality. There appears to be mild asymmetric prominence of the left inguinal lymph nodes. Severe left and moderate right hip osteoarthritis. Advanced degenerative changes in the lumbar spine. Mild chronic T11 and T12 height loss, as before. There is ankylosis at the sacroiliac joints. No visualized aggressive osseous lesion. Impression: 1.De [place] Santos catheter balloon and tip appear to terminate in the proximal penile urethra. Recommend repositioning. 2.Moderate distention of the bladder with small amount of gas in the bladder, as before. Bladder wall thickening appears mildly decreased since the prior exam. Correlate with urinalysis. 3.Questionable wall thickening of the distal rectum. Correlate for symptoms of proctitis. 4.Bilateral inguinal hernias, larger on the left containing a partial loop of sigmoid colon. No proximal dilatation. 5.Mild asymmetric prominence of the left inguinal lymph nodes, likely reactive. Clinical follow-up recommended. 6.Calcific atherosclerosis. The ordering provider was notified of the results by Dr. Ferraro at 06/25/2025 7:54 PM EDT. Electronically Signed: Nehemias Ferraro 06/25/2025 7:55 PM EDT Workstation ID: [id number] Signed: 06/25/252152 by Nehemias Ferraro MD Narrative: CT ABDOMEN PELVIS W CONTRAST Date of Exam: 06/25/2025 7:05 PM EDT Indication: Diarrhea, hematuria, abdominal discomfort. Comparison: 06/02/2025 Technique: Axial CT images were obtained of the abdomen and pelvis following the uneventful intravenous administration of iodinated contrast. Reconstructed coronal and sagittal images were also obtained. Automated exposure control and iterative construction methods were used. Findings: Calcific atherosclerosis of the coronary arteries. No pleural or pericardial effusion. No suspicious infiltrate in the lower lungs. No definite ectopic bowel gas. No splenomegaly or suspicious splenic lesion. No suspicious hepatic abnormality. No definite acute biliary abnormality. No suspicious splenic or pancreatic abnormality. Aorta appears normal in caliber. There is calcific atherosclerosis of the aorta and branch vessels. IVC filter is present, as before. Lymph nodes do not appear significantly enlarged. Probable small bilateral upper pole renal cysts. There is expected excretion of contrast from the kidneys. No hydronephrosis. No dilated small bowel loops. No definite acute gastric abnormality. Small fat-containing umbilical hernia. There are bilateral inguinal hernias. Smaller right inguinal hernia contains fat. Larger left inguinal hernia contains a partial loop of sigmoid colon. No proximal dilatation. The appendix appears within normal limits. No definite findings of acute colonic inflammation. The bladder is moderately distended. Small amount of gas is present in the bladder, as before. Bladder wall thickening appears mildly decreased since the prior exam. Prostate does not appear significantly enlarged. De Los Santos catheter balloon and tip appears to terminate in the proximal penile urethra. There is some questionable wall thickening of the distal rectum. No other definite perirectal abnormality. There appears to be mild asymmetric prominence of the left inguinal lymph nodes. Severe left and moderate right hip osteoarthritis. Advanced degenerative changes in the lumbar spine. Mild chronic T11 and T12 height loss, as before. There is ankylosis at the sacroiliac joints. No visualized aggressive osseous lesion. Impression: Impression: 1.De Los Santos catheter balloon and tip appear to terminate in the proximal penile urethra. Recommend repositioning. 2.Moderate distention of the bladder with small amount of gas in the bladder, as before. Bladder wall thickening appears mildly decreased since the prior exam. Correlate with urinalysis. 3.Questionable wall thickening of the distal rectum. Correlate for symptoms of proctitis. 4.Bilateral inguinal hernias, larger on the left containing a partial loop of sigmoid colon. No proximal dilatation. 5.Mild asymmetric prominence of the left inguinal lymph nodes, likely reactive. Clinical follow-up recommended. 6.Calcific atherosclerosis. The ordering provider was notified of the results by Dr. Ferraro at 06/25/2025 7:54 PM EDT. Electronically Signed: Nehemias Ferraro 06/25/2025 7:55 PM EDT Workstation ID: [id number] XR Foot 3+ View Left [[id number]] Collected: 06/25/251858 Updated: 06/25/251905 Narrative: XR FOOT 3+ VW LEFT Date of Exam: 06/25/2025 6:15 PM EDT Indication: diabetic ulcer. Comparison: August 2024 Findings: Bones are grossly osteopenic. There is marked soft tissue swelling overlying dorsum of the foot andat the stump distal to the metatarsal ray resection sites. There is shallow soft tissue ulceration at the dorsum of the foot distally. 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 There is dense vascular calcification noted. Impression: Impression: Marked soft tissue swelling at the stump and dorsum of the foot suggest cellulitis.. Small shallow soft tissue ulceration distal dorsum of the foot No acute osseous abnormality. If there is concern for osteomyelitis MRI is recommended. Electronically Signed: Duglas Lay MD 06/25/2025 7:03 PM EDT Workstation ID: [id number] Impression: --acute left lower leg/foot cellulitis and wound infection, prior culture July 2024 with ESBL Klebsiella pneumoniae and pseudomonas aeruginosa, pseudomonas was sensitive to Merrem per microbiology lab at [facility]. Cx at [facility] as below; He has had multiple surgeries and multiple p ractitioners recommend higher level amputation which he has refused. On prior admissions, he has refused outpatient IV antibiotics and he has refused placement for longer durations of IV antibiotics.This refusal of care has placed him at increased risk for poor outcome. Earlier in 2024 he was discharged to the care of Dr. Oneal, his outpatient ID doctor and Dr Faust his automobile travel club counselor for furthercare/workup ; readmission May 2025 and June 2025 with acute worsening in redness/drainage to left lower extremity. High risk for further serious morbidity and other serious sequela includingpersistent/recurrent or nonhealing wounds, persistent/progressive or recurrent infection and risk for further functional/limb loss, higher-level amputation and other dire consequences including sepsis/mortalityetc. he remains opposed to amputation; he voices understanding his poor prognosis overallincluding risks for dire consequences; past Cx with MRSA/PSA/ESBL at prior admissions; culture June 02, 2025 with Proteus/MRSA/PSA; Cx June 2025 pending; further imaging pending --GPC bacteremia, E Faecium by PCR, NOT vanco resistant; risk for dapto resistance with prior daptomycin; ?foot source -v- other --Acute hematuria/UTI with chronic indwelling De Los Santos catheter. Proteus in culture so far; nursing reports De Los Santos catheter has been changed since admission; urology evaluation for further consideration of cystoscopy versus SP catheter or other; urine microscopic with yeast and potential for yeast colon ization/contaminant but also potential for evolving invasive candidiasis. Follow-up on culture data, blood catheter has been changed as above and empiric antibiotics. Mycamine IV ??1 06/26 --Acute diarrhea, Norovirus + and C. Difficile PCR +, although toxin antigen negative. He has risk for active disease and does have symptomatology and requires antibiotics for other processes, and therefore oral vancomycin added although unable to definitively confirm active disease with toxin antigen negative ( although risk for false negative); supportive care ongoing --MRSA surveillance + --Peripheral arterial disease by past evaluation of vascular team in addition to history DVT. 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 Managed infection control protocol. Duglas Andres MD 06/27/2025 [1] Allergies Allergen Reactions Keppra [Levetiracetam] Other (See Comments) Acute psychosis Bupropion Unknown (See Comments) Codeine Nausea Only Hydrocodone Unknown (See Comments) Ketorolac Tromethamine Unknown (See Comments) [2] Current Facility-Administered Medications Medication Dose Route Frequency Provider Last Rate Last Admin acetaminophen (TYLENOL) tablet 650 mg 650 mg Oral Q4H PRN Amanda Bermudez MD 650 mg at 06/26/25 0843 Or acetaminophen (TYLENOL) 160 MG/5ML oral solution 650 mg 650 mg Oral Q4H PRN Amanda Bermuedz MD Or acetaminophen (TYLENOL) suppository 650 mg 650 mg Rectal Q4H PRN Amanda Bermudez MD aluminum-magnesium hydroxide-simethicone (MAALOX MAX) 400-400-40 MG/5ML suspension 15 mL 15 mL [id number] PRN Amanda Bermudez MD [Held by provider] apixaban (ELIQUIS) tablet 5 mg 5 mg Oral BID Amanda Bermudez MD ascorbic acid (VITAMIN C) tablet 500 mg 500 mg Oral Daily Amanda Bermudez MD 500 mg at 06/26/25 0843 baclofen (LIORESAL) tablet 10 mg 10 mg Oral Q12H Amanda Bermudez MD 10 mg at 06/26/25 2113 sennosides-docusate (PERICOLACE) 8.6-50 MG per tablet 2 tablet 2 tablet Oral BID PRN Amanda Bermudez MD And polyethylene glycol (MIRALAX) packet 17 g 17 g Oral Daily PRN Amanda Bermudez MD And bisacodyl (DULCOLAX) EC tablet 5 mg 5 mg Oral Daily PRN Amanda Bermudez MD And bisacodyl (DULCOLAX) suppository 10 mg 10 mg Rectal Daily PRN Amanda Bermudez MD Calcium Replacement - Follow Nurse / BPA Driven Protocol Not Applicable PRN Amanda Bermudez MD carvedilol (COREG) tablet 3.125 mg 3.125 mg Oral BID With Meals Amanda Bermudez MD 3.125 mg at 06/26/25 1710 clopidogrel (PLAVIX) tablet 75 mg 75 mg Oral Daily Amanda Bermudez MD 75 mg at 06/26/25 0842 famotidine (PEPCID) tablet 20 mg 20 mg Oral BID Arnoldo Ca, Amanda 20 mg at 06/26/25 1710 finasteride (PROSCAR) tablet 5 mg 5 mg Oral Daily Amanda Bermudez MD 5 mg at 06/26/25 0843 folic acid (FOLVITE) tablet 1 mg 1 mg Oral Daily Amanda Bermudez MD 1 mg at 06/26/25 0842 gabapentin (NEURONTIN) capsule 200 mg 200 mg Oral Q8H Amanda Bermudez MD 200 mg at 06/27/25 0553 heparin (porcine) 5000 UNIT/ML injection 5,000 Units 5,000 Units Subcutaneous Q8H Lupe Albert APRN 5,000 Units at 06/27/25 0553 insulin glargine (LANTUS, SEMGLEE) injection 56 Units 56 Units Subcutaneous Nightly Amanda Bermudez MD 56 Units at 06/26/25 2138 ipratropium-albuterol (DUO-NEB) nebulizer solution 3 mL 3 mL Nebulization Q6H PRN Amanda Bermudez MD lamoTRIgine (LaMICtal) tablet 100 mg 100 mg Oral Daily Amanda Bermudez MD 100 mg at 06/26/25 0842 lamoTRIgine (LaMICtal) tablet 250 mg 250 mg Oral Nightly Amanda Bermudez MD 250 mg at 06/26/25 2138 Magnesium Cardiology Dose Replacement - Follow Nurse / BPA Driven Protocol Not Applicable PRN Amanda Bermudez MD meropenem (MERREM) 500 mg in sodium chloride 0.9 % 100 mL MBP 500 mg Intravenous Q6H Duglas Andres MD 500 mg at 06/27/25 0303 methenamine (HIPREX) tablet 1 g 1 g Oral BID With Meals Amanda Bermudez MD 1 g at 06/26/25 1710 multivitamin with minerals 1 tablet 1 tablet Oral Daily Amanda Bermudez MD 1 tablet at 06/26/25 0843 naloxone (NARCAN) injection 0.4 mg 0.4 mg Intravenous Q5 Min PRN Amanda Bermudez MD nitroglycerin (NITROSTAT) SL tablet 0.4 mg 0.4 mg Sublingual Q5 Min PRN Amanda Bermudez MD ondansetron (ZOFRAN) injection 4 mg 4 mg Intravenous Q6H PRN Amanda Bermudez MD oxyCODONE-acetaminophen (PERCOCET) 5-325 MG per tablet 1 tablet 1 tablet Oral Q6H PRN Hiro Santillan MD 1 tablet at 06/27/25 0116 Pharmacy to dose vancomycin Not Applicable Continuous PRN Duglas Andres MD Phosphorus Replacement - Follow Nurse / BPA Driven Protocol Not Applicable PRN Amanda Bermudez MD Potassium Replacement - Follow Nurse / BPA Driven Protocol Not Applicable PRAmanda Irizarry MD sacubitril-valsartan (ENTRESTO) 24-26 MG tablet 1 tablet 1 tablet Oral BID Amanda Bermudez MD 1 tablet at 06/26/252112 sodium chloride 0.9 % flush 10 mL 10 mL Intravenous PRN Ally Jeffers V, DIABETES NURSE sodium chloride 0.9 % flush 10 mL 10 mL Intravenous Q12H Amanda Bermudez MD 10 mL at 06/26/25 213 sodium chloride 0.9 % flush 10 mL 10 mL Intravenous PRN Amanda Bermudez MD vancomycin (VANCOCIN) capsule 125 mg 125 mg Oral 4x Daily Duglas Andres MD 125 mg at Followed by [START ON 07/10/2025] vancomycin (VANCOCIN) capsule 125 mg 125 mg Oral TID Duglas Andres MD Followed by [START ON 07/17/2025] vancomycin (VANCOCIN) capsule 125 mg 125 mg Oral BID Duglas Andres MD Followed by [START ON 07/25/2025] vancomycin (VANCOCIN) capsule 125 mg 125 mg Oral Daily Duglas Andres MD Followed by [START ON 08/01/2025] vancomycin (VANCOCIN) capsule 125 mg 125 mg Oral Weekly Duglas Andres MD * Eloise Smiley MD - 06/26/2025 2:13 PM EDT Images from the original note were not included. Urology Hospital Consult Note Date of Consult: 06/25/2025 Patient Name: Trung Pool : [id number] Referring Provider: * No referring provider recorded for this case * Care Team: Patient Care Team: Gustavo Mehta MD as PCP - General (Adolescent Medicine) Kj Rothman DO (Director Information Care Facility) Reason for Hospitalization: sepsis due to cellulitis, UTI History of Present Illness: Urology was contacted for hospital consultation on Trung Pool a 70y.o. male who presents to the hospital for hematuria, drainage from right foot, and diarrhea since last Wednesday. He was found to have sepsis with multiple sources including LLE cellulitis and urinary tract infection. He was admitted for further workup and management. Urology was consulted due to hematuria. Patient has long-term indwelling urethral de los santos catheter due to urinary retention. He denies seeinga urologist. Home health exchanges his de los santos catheters. He had catheter exchange on 05/21. He was hospitalized 06/02-06/11. He was noted to have hematuria at that time thought to be related to catheter ex change vs UTI. His catheter was exchanged during that admission and hematuria improved. Urine culture during that admission grew >100k cfu E. Coli and Proteus. Patient again noted hematuria prior to this hospitalization. He denies any issues with his recent catheter exchanges but does report possibility of catheter getting tugged on during transfers. On imaging on presentation, his catheter was positioned within his bulbar urethra. Catheter was exchanged by nursing after and his de los santos has been draining clear yellow urine since. Workup in ED showed no leukocytosis, stable Hgb of 8.9 from 9.8 on labs 1 month prior, nl plt count, nl Cr, and UA with blood, leukocytes, nitrites, bacteria, and yeast. Of note, he s on Plavix and Eliquis for his PAD, but Eliquis is currently being held. Patient is interested in other forms of bladder drainage, namely SPT placement. Subjective Pertinent items are noted in HPI. Past Medical History: Past Medical History: Diagnosis Date Anemia Cellulitis Diabetes mellitus Frequent falls History of DVT (deep vein thrombosis) Hyperlipidemia Hypertension Migraines Myocardial infarction Peripheral neuropathy Pneumonia Spinal stenosis Wears dentures FULL Wears glasses Past Surgical History: Past Surgical History: Procedure Laterality Date ABOVE KNEE AMPUTATION Right AMPUTATION DIGIT Left 01/28/2024 Procedure: SECOND AND THIRD TOE AMPUTATION LEFT; Surgeon: Cecil Buenrostro Jr., MD; Location: [facility]; Service: Orthopedics; Laterality: Left; ANTERIOR CERVICAL DISCECTOMY W/ FUSION Bilateral 07/17/2020 Procedure: Cervical discectomy anterior with fusion C3-4; Surgeon: Tyree Tan MD; Location:[facility]; Service: Neurosurgery; Laterality: Bilateral; AORTOGRAM N/A [...] femoral access; Surgeon: Jared Marcano MD; Location: [facility]; Service: Peripheral Vascular; Laterality: N/A; CORONARY ANGIOPLASTY WITH STENT PLACEMENT stent x 1 INCISION AND DRAINAGE FOOT Left 06/17/2023 Procedure: LEFT FOOT DEBRIDEMENT WOUND VACUUM ASSISTED CLOSURE; Surgeon: Cecil Buenrostro Jr., MD;Location: [facility]; Service: Orthopedics; Laterality: Left; INCISION AND DRAINAGE LEG Left 07/25/2023 Procedure: INCISION AND DRAINAGE HEEL, WOUND VAC; Surgeon: Cecil Buenrostro Jr., MD; Location: [facility]; Service: Orthopedics; Laterality: Left; INTERVENTIONAL RADIOLOGY PROCEDURE N/A 05/02/2019 Procedure: IVC FILTER PLACEMENT; Surgeon: Pedro Zapien MD; Location: [facility]; Service: Interventional Radiology INTERVENTIONAL RADIOLOGY PROCEDURE Left 09/07/2024 Procedure: LEFT peroneal arteriovenous fistula embolization - Right femoral access; Surgeon: Jraed Marcano MD; Location: [facility]; Service: Cardiovascular; Laterality: Left; Please coordinate with Gautam Patel ([facility]) [phone] who will bring coils LUMBAR DISCECTOMY N/A 05/03/2019 Procedure: THORACIC LAMINECTOMY T11-12; Surgeon: Tyree Tan MD; Location: [facility]; Service: Neurosurgery Family History: Family History Problem Relation Age of Onset Alcohol abuse Father Social History: Social History[1] Medications: Current Medications[2] Allergies: Allergies[3] Problem: Gastroenteritis due to norovirus Primary hypertension Seizure disorder Coronary artery disease involving [place] coronary artery of [place] heart without angina pectoris PAD (peripheral artery disease) Type 2 diabetes mellitus, with long-term current use of insulin Cellulitis Acute UTI (urinary tract infection) Diarrhea of presumed infectious origin Acute on chronic blood loss anemia BPH without obstruction/lower urinary tract symptoms GERD without esophagitis Bilateral inguinal hernia Objective Physical Exam: Vital Signs: Temp: [97.7 ??F (36.5 ??C)-98.3 ??F (36.8 ??C)] 97.8 ??F (36.6 ??C) Heart Rate: [56-91] 91 Resp: [12-18] 16 BP: (108-157)/(50-99) 126/82 114 kg (251 lb 5.2 oz) Body mass index is 34.09 kg/m??. General: WDWN, NAD HEENT: NCAT Respiratory: no audible wheezing, non-labored breathing CV: Appears well perfused Abd: nontender, nondistended, soft MSK: right BKA, left foot TMA Neuro: Aox3, no gross neuro deficit Psych: normal mood/affect Genitourinary De Los Santos catheter in place, mobile, draining clear yellow urine. I/O last 3 completed shifts: In: 250 [I.V.:250] Out: 1300 [Urine:1300] Labs Lab Results Component Value Date GLUCOSE 134 (H) 06/26/2025 CALCIUM 8.3 (L) 06/26/2025 NA 142 06/26/2025 K 3.7 06/26/2025 CO2 21.4 (L) 06/26/2025 CL 112 (H) 06/26/2025 BUN 19.1 06/26/2025 CREATININE 0.88 06/26/2025 EGFRIFAFRI >60 05/22/2022 EGFRIFNONA 104 11/06/2021 BCR 21.7 06/26/2025 ANIONGAP 8.6 06/26/2025 Lab Results Component Value Date WBC 9.69 06/26/2025 HGB 8.8 (L) 06/26/2025 HCT 29.3 (L) 06/26/2025 MCV 77.5 (L) 06/26/2025 PLT 271 06/26/2025 Urine Culture Date Value Ref Range Status 06/25/2025 >100,000 CFU/mL Proteus species (A) Preliminary Brief Urine Lab Results (Last result in the past 365 days) Color Clarity Blood Leuk Est Nitrite Protein CREAT Urine HCG 06/25/252000 Yellow Turbid Large (3+) Large (3+) Positive Trace Radiographic Studies CT Angiogram Lower Extremity Left Result Date: 06/26/2025 Impression: 1.There is mild disease in the left lower extremity with moderate focal narrowing at the junction of the SFA and popliteal artery. There appears to be embolization of the left left peroneal artery. Patency of the anterior and posterior tibial arteries is difficult to assess due to significant venous contamination and heavy calcification. Definite runoff into the left foot is seen in the posterior tibial artery. 2.Status post right [id number] amputation. There is occlusion of theproximal right PFA with reconstitution. 3.Severe diffuse atrophy in the left lower extremity musculature. 4.Moderate sized fat and sigmoid colon containing left inguinal hernia and small fat-containing right inguinal hernia. 5.Marked urinary bladder wall thickening. Correlate for cystitis. Electronically Signed: Hussain Lyles MD 06/26/2025 5:08 AM EDT Workstation ID: [id number] XR Chest 1 View Result Date: 06/26/2025 Cardiomegaly with possible mild right basilar atelectasis. Electronically Signed: Brent Lubin MD 06/26/2025 4:13 AM EDT Workstation ID: [id number] CT Abdomen Pelvis With Contrast Addendum Date: 06/25/2025 ADDENDUM #1 IVC filter is present on imaging study. It is recommended that all patients with IVC filters in place have an active management care plan to monitor their IVC filter. If a care plan is not in place, patient should have a non emergent referral to an interventional specialist such as interventional radiology or other interventional vascular specialist for establishment of an IVC filter management care plan. Electronically Signed: Nehemias Ferraro 06/25/2025 9:53 PM EDT Workstation ID: [id number] ORIGINAL REPORT: CT ABDOMEN PELVIS W CONTRAST Date of Exam: 06/25/2025 7:05 PM EDT Indication:Diarrhea, hematuria, abdominal discomfort. Comparison: 06/02/2025 Technique: Axial CT images were obt ained of the abdomen and pelvis following the uneventful intravenous administration of iodinated contrast. Reconstructed coronal and sagittal images were also obtained. Automated exposure control anditerative construction methods were used. Findings: Calcific atherosclerosis of the coronary arteries. No pleural or pericardial effusion. No suspicious infiltrate in the lower lungs. No definite ectopic bowel gas. No splenomegaly or suspicious splenic lesion. No suspicious hepatic abnormality. No definite acute biliary abnormality. No suspicious splenic or pancreatic abnormality. Aorta appears normal in caliber. There is calcific atherosclerosis of the aorta and branch vessels. IVC filter is present, as before. Lymph nodes do not appear significantly enlarged. Probable small bilateral upper pole renal cysts. There is expected excretion of contrast from the kidneys. No hydronephrosis. No dilated small bowel loops. No definite acute gastric abnormality. Small fat-containing umbilical hernia. There are bilateral inguinal hernias. Smaller right inguinal hernia contains fat. Larger left inguinal hernia contains a partial loop of sigmoid colon. No proximal dilatation. The appendix appears within normal limits. No definite findings of acute colonic inflammation. The bladder is moderately distended. Small amount of gas is present in the bladder, as before. Bladder wall thickening appearsmildly decreased since the prior exam. Prostate does not appear significantly enlarged. De Los Santos catheter balloon and tip appears to terminate in the proximal penile urethra. There is some questionable wall thickening of the distal rectum. No other definite perirectal abnormality. There appears to be mild asymmetric prominence of the left inguinal lymph nodes. Severe left and moderate right hip osteoarthritis. Advanced degenerative changes in the lumbar spine. Mild chronic T11 and T12 height loss,as before. There is ankylosis at the sacroiliac joints. No visualized aggressive osseous lesion. Impression: 1.De Los Santos catheter balloon and tip appear to terminate in the proximal penile urethra. Recommend repositioning. 2.Moderate distention of the bladder with small amount of gas in the bladder, asbefore. Bladder wall thickening appears mildly decreased since the prior exam. Correlate with urinalysis. 3.Questionable wall thickening of the distal rectum. Correlate for symptoms of proctitis. 4.Bilateral inguinal hernias, larger on the left containing a partial loop of sigmoid colon. No proximal dilatation. 5.Mild asymmetric prominence of the left inguinal lymph nodes, likely reactive. Clinical follow-up recommended. 6.Calcific atherosclerosis. The ordering provider was notified of the results by Dr. Ferraro at 06/25/2025 7:54 PM EDT. Electronically Signed: Nehemias Ferraro 06/25/2025 7:55 PM EDT Workstation ID: [id number] Result Date: 06/25/2025 Impression: 1.De Los Santos catheter balloon and tip appear to terminate in the proximal penile urethra. Recommend repositioning. 2.Moderate distention of the bladder with small amount of gas in the bladder,as before. Bladder wall thickening appears mildly decreased since the prior exam. Correlate with urinalysis. 3.Questionable wall thickening of the distal rectum. Correlate for symptoms of proctitis. 4.Bilateral inguinal hernias, larger on the left containing a partial loop of sigmoid colon. No proximal dilatation. 5.Mild asymmetric prominence of the left inguinal lymph nodes, likely reactive. Clinical follow-up recommended. 6.Calcific atherosclerosis. The ordering provider was notified of the results by Dr. Ferraro at 06/25/2025 7:54 PM EDT. Electronically Signed: Nehemias Ferraro 06/25/2025 7:55 PMEDT Workstation ID: [id number] XR Foot 3+ View Left Result Date: 06/25/2025 Impression: Marked soft tissue swelling at the stump and dorsum of the foot suggest cellulitis.. Small shallow soft tissue ulceration distal dorsum of the foot No acute osseous abnormality. If there is concern for osteomyelitis MRI is recommended. Electronically Signed: Duglas Lay MD 06/25/2025 7:03 PM EDT Workstation ID: [id number] CT Abdomen Pelvis With Contrast Result Date: 06/02/2025 Shaggy urinary bladder wall thickening concerning for cystitis. Locules of gas within the urinary bladder concerning for a gas-forming organism. Electronically Signed: Feliciano Garcia MD 06/02/2025 12:22PM EDT Workstation ID: [id number] XR Chest 1 View Result Date: 06/02/2025 Impression: Stable appearance of the chest without focal airspace consolidation. Electronically Signed: Rony Monsalve MD 06/02/2025 10:45 AM EDT Workstation ID: [id number] Results Review: I reviewed the patient's new clinical results. Imaging Results (Last 72 Hours) Procedure Component Value Units Date/Time CT Angiogram Lower Extremity Left [[id number]] Collected: 06/26/25 0500 Updated: 06/26/25 05 Narrative: CT ANGIOGRAM LOWER EXTREMITY LEFT Date of Exam: 06/26/2025 4:18 AM EDT Indication: Left leg limb ischemia. Comparison: Correlation with CT abdomen and pelvis 06/25/2025. Technique: CTA of the left lower extremity was performed before and after the uneventful intravenous administration of iodinated contrast. Reconstructed coronal and sagittal images were also obtained. In addition, a 3-D volume rendered image was created for interpretation. Automated exposure control and iterative reconstruction methods were used. Findings: CT angiography: There is moderate disease in the visualized aorta above the bifurcation. There is mild nonstenosing disease in the common iliac arteries. There is mild nonstenosing disease in the external iliac arteries and similar mild disease present in the internal iliac arteries. Right lower extremity: Patient is status post gqwcm-smn-lusy amputation. There is mild disease in the SEWING SUPERVISOR and SFA. The PFA is occluded proximally with reconstitution. There is moderate segmental stenosing disease in the remainder of the SFA. Left lower extremity: Minimal SEWING SUPERVISOR disease. PFA is patent. There is mild SFA disease with moderate focal narrowing at the junction of the SFA and popliteal artery. The wvurs-lei-hfap popliteal artery appears otherwise widely patent. There is mild below the knee popliteal artery disease. There appears to be embolization of the peroneal artery. Patency of the anterior and posterior tibial arteries is difficult to assess due to significant venous contamination and heavy calcification. Definite runoff into the left foot is seen in the posterior tibial artery. 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 Nonvascular findings: There is severe diffuse atrophy in the left lower extremity musculature particularly below the knee. The bones are markedly demineralized in the left foreleg. There is muscular atrophy in the right thigh. There is a moderate sized fat and sigmoid colon containing left inguinalhernia and a small fat-containing right inguinal hernia. There is marked urinary bladder wall thickening. IVC filter is partially seen and discussed on previous reports. The appendix is normal. Thereis no pelvic ascites. No acute osseous abnormality. There are moderate to severe lower lumbar degenerative changes. Impression: Impression: 1.There is mild disease in the left lower extremity with moderate focal narrowing at the junction of the SFA and popliteal artery. There appears to be embolization of the left left peroneal artery. Patency of the anterior and posterior tibial arteries is difficult to assess due to significant venous contamination and heavy calcification. Definite runoff into the left foot is seen in the posterior tibial artery. 2.Status post right ztmhd-ofx-occy amputation. There is occlusion of the proximal right PFA with reconstitution. 3.Severe diffuse atrophy in the left lower extremity musculature. 4.Moderate sized fat and sigmoid colon containing left inguinal hernia and small fat-containing right inguinal hernia. 5.Marked urinary bladder wall thickening. Correlate for cystitis. Electronically Signed: Hussain Lyles MD 06/26/2025 5:08 AM EDT Workstation ID: [id number] XR Chest 1 View [[id number]] Collected: 06/26/25411 Updated: 06/26/25415 Narrative: XR CHEST 1 VW Date of Exam: 06/26/2025 3:07 AM EDT Indication: cough. Comparison: 06/02/2025 Findings: Cardiomegaly is stable. Pulmonary vascularity is normal. There is atherosclerotic disease in the aorta. Mild right basilar atelectasis may be present. Lungs are otherwise clear. No pneumothorax. There is degenerative disease in the shoulders. Impression: Cardiomegaly with possible mild right basilar atelectasis. Electronically Signed: Brent Lubin MD 06/26/2025 4:13 AM EDT Workstation ID: [id number] CT Abdomen Pelvis With Contrast [[id number]] Collected: 06/25/251937 Updated: 06/25/252155 Addenda: ADDENDUM #1 IVC filter is present on imaging study. It is recommended that all patients with IVC filters in place have an active management care plan to monitor their IVC filter. If a care plan is not in place, patient should have a non emergent referral to an interventional specialist such as interventional radiology or other interventional vascular specialist for establishment of an IVC filter management care plan. Electronically Signed: Nehemias Ferraro 06/25/2025 9:53 PM EDT Workstation ID: [id number] ORIGINAL REPORT: CT ABDOMEN PELVIS W CONTRAST Date of Exam: 06/25/2025 7:05 PM EDT Indication: Diarrhea, hematuria, abdominal discomfort. Comparison: 06/02/2025 Technique: Axial CT images were obtained of the abdomen and pelvis following the uneventful intravenous administration of iodinated contrast. Reconstructed coronal and sagittal images were also obtained. Automated exposure control and iterative construction methods were used. Findings: Calcific atherosclerosis of the coronary arteries. No pleural or pericardial effusion. No suspicious infiltrate in the lower lungs. No definite ectopic bowel gas. No splenomegaly or suspicious splenic lesion. No suspicious hepatic abnormality. No definite acute biliary abnormality. No suspicious splenic or pancreatic abnormality. Aorta appears normal in caliber. There is calcific atherosclerosis of the aorta and branch vessels. IVC filter is present, as before. Lymph nodes do not appear significantly enlarged. Probable small bilateral upper pole renal cysts. There is expected excretion of contrast from the kidneys. No hydronephrosis. No dilated small bowel loops. No definite acute gastric abnormality. Small fat-containing umbilical hernia. There are bilateral inguinal hernias. Smaller right inguinal hernia contains fat. Larger left inguinal hernia contains a partial loop of sigmoid colon. No proximal dilatation. The appendix appears within normal limits. No definite findings of acute colonic inflammation. The bladder is moderately distended. Small amount of gas is present in the bladder, as before. Bladder wall thickening appears mildly decreased since the prior exam. Prostate does not appear significantly enlarged. De Los Santos catheter balloon and tip appears to terminate in the proximal penile urethra. There is some questionable wall thickening of the distal rectum. No other definite perirectal abnormality. There appears to be mild asymmetric prominence of the left inguinal lymph nodes. Severe left and moderate right hip osteoarthritis. Advanced degenerative changes in the lumbar spine. Mild chronic T11 and T12 height loss, as before. There is ankylosis at the sacroiliac joints. No visualized aggressive osseous lesion. Impression: 1.De Los Santos catheter balloon and tip appear to terminate in the proximal penile urethra. Recommend repositioning. 2.Moderate distention of the bladder with small amount of gas in the bladder, as before. Bladder wall thickening appears mildly decreased since the prior exam. Correlate with urinalysis. 3.Questionable wall thickening of the distal rectum. Correlate for symptoms of proctitis. 4.Bilateral inguinal hernias, larger on the left containing a partial loop of sigmoid colon. No proximal dilatation. 5.Mild asymmetric prominence of the left inguinal lymph nodes, likely reactive. Clinical follow-up recommended. 6.Calcific atherosclerosis. The ordering provider was notified of the results by Dr. Ferraro at 06/25/2025 7:54 PM EDT. Electronically Signed: Nehemias Ferraro 06/25/2025 7:55 PM EDT Workstation ID: [id number] Signed: 06/25/25 2153 by Nehemias Ferraro MD Narrative: CT ABDOMEN PELVIS W CONTRAST Date of Exam: 06/25/2025 7:05 PM EDT Indication: Diarrhea, hematuria, abdominal discomfort. Comparison: 06/02/2025 Technique: Axial CT images were obtained of the abdomen and pelvis following the uneventful intravenous administration of iodinated contrast. Reconstructed coronal and sagittal images were also obtained. Automated exposure control and iterative construction methods were used. Findings: Calcific atherosclerosis of the coronary arteries. No pleural or pericardial effusion. No suspicious infiltrate in the lower lungs. No definite ectopic bowel gas. No splenomegaly or suspicious splenic lesion. No suspicious hepatic abnormality. No definite acute biliary abnormality. No suspicious splenic or pancreatic abnormality. Aorta appears normal in caliber. There is calcific atherosclerosis of the aorta and branch vessels. IVC filter is present, as before. Lymph nodes do not appear significantly enlarged. Probable small bilateral upper pole renal cysts. There is expected excretion of contrast from the kidneys. No hydronephrosis. No dilated small bowel loops. No definite acute gastric abnormality. Small fat-containing umbilical hernia. There are bilateral inguinal hernias. Smaller right inguinal hernia contains fat. Larger left inguinal hernia contains a partial loop of sigmoid colon. No proximal dilatation. The appendix appears within normal limits. No definite findings of acute colonic inflammation. The bladder is moderately distended. Small amount of gas is present in the bladder, as before. Bladder wall thickening appears mildly decreased since the prior exam. Prostate does not appear significantly enlarged. De Los Santos catheter balloon and tip appears to terminate in the proximal penile urethra. There is some questionable wall thickening of the distal rectum. No other definite perirectal abnormality. There appears to be mild asymmetric prominence of the left inguinal lymph nodes. Severe left and moderate right hip osteoarthritis. Advanced degenerative changes in the lumbar spine. Mild chronic T11 and T12 height loss, as before. There is ankylosis at the sacroiliac joints. No visualized aggressive osseous lesion. Impression: Impression: 1.De Los Santos catheter balloon and tip appear to terminate in the proximal penile urethra. Recommend repositioning. 2.Moderate distention of the bladder with small amount of gas in the bladder, as before. Bladder wall thickening appears mildly decreased since the prior exam. Correlate with urinalysis. 3.Questionable wall thickening of the distal rectum. Correlate for symptoms of proctitis. 4.Bilateral inguinal hernias, larger on the left containing a partial loop of sigmoid colon. No proximal dilatation. 5.Mild asymmetric prominence of the left inguinal lymph nodes, likely reactive. Clinical follow-up recommended. 6.Calcific atherosclerosis. The ordering provider was notified of the results by Dr. Ferraro at 06/25/2025 7:54 PM EDT. Electronically Signed: Nehemias Ferraro 06/25/2025 7:55 PM EDT Workstation ID: [id number] XR Foot 3+ View Left [[id number]] Collected: 06/25/251858 Updated: 06/25/251905 Narrative: XR FOOT 3+ VW LEFT Date of Exam: 06/25/2025 6:15 PM EDT Indication: diabetic ulcer. Comparison: August 2024 Findings: Bones are grossly osteopenic. There is marked soft tissue swelling overlying dorsum of the foot andat the stump distal to the metatarsal ray resection sites. There is shallow soft tissue ulceration at the dorsum of the foot distally. 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 There is dense vascular calcification noted. Impression: Impression: Marked soft tissue swelling at the stump and dorsum of the foot suggest cellulitis.. Small shallow soft tissue ulceration distal dorsum of the foot No acute osseous abnormality. If there is concern for osteomyelitis MRI is recommended. Electronically Signed: Duglas Lay MD 06/25/2025 7:03 PM EDT Workstation ID: [id number] Assessment / Plan Assessment/Plan: 70 yo M with urologic hx significant for BPH, urinary retention requiring chronic indwelling de los santos for the last year. He has had gross hematuria within the last 6 weeks, possibly due to UTI vs traumatic de los santos manipulation. Other hx includes HLD, HTN, migraines, HI, neuropathy, PAD, T2DM, falls, andcellulitis. Patient is currently admitted for sepsis related to LLE cellulitis vs UTI. He is afebrile and HDS. He is on broad spectrum abx. UA with bacteria and yeast. Imaging on admission showed de los santos displacedwithin bulbar urethra with balloon still inflated. This has since been exchanged with resolution ofhematuria and appears to be in appropriate position on exam. Patient inquired about other forms of bladder management, namely suprapubic catheter placement. This would be a difficult placement due to intervening bowel and bilateral inguinal hernias present on imaging. It would likely be safest to consider IR placement of SPT if patient felt strongly about having one. Given active UTI, would avoid instrumentation of urinary tract/SPT placement this admission. Can further discuss as an outpatient once patient is clinically improved. Plan: - Recommend adding antifungal coverage due to + yeast in UA - Continue current de los santos catheter - Secure de los santos catheter and take care to avoid displacement while active - Will arrange outpatient follow up in coming weeks to discuss snf bladder management. I discussed the patients findings and my recommendations with the patient. Time: Total [id number]-ugmq/floor time: 45 Minutes Eloise Smiley MD 06/26/25 14:13 EDT [1] Social History Socioeconomic History Marital status: Single Tobacco Use Smoking status: Never Passive exposure: Never Smokeless tobacco: Never Vaping Use Vaping status: Never Used Substance and Sexual Activity Alcohol use: Never Drug use: Yes Types: Marijuana Sexual activity: Defer [2] Current Facility-Administered Medications: acetaminophen (TYLENOL) tablet 650 mg, 650 mg, Oral, Q4H PRN, 650 mg at 06/26/25 0843 OR acetaminophen (TYLENOL) 160 MG/5ML oral solution 650 mg, 650 mg, Oral, Q4H PRN OR acetaminophen (TYLENOL) suppository 650 mg, 650 mg, Rectal, Q4H PRN, Amanda Bermudez MD aluminum-magnesium hydroxide-simethicone (MAALOX MAX) 400-400-40 MG/5ML suspension 15 mL, 15 mL, Oral, Q6H PRN, Amanda Bermudez MD [Held by provider] apixaban (ELIQUIS) tablet 5 mg, 5 mg, Oral, BID, Amanda Bermudez MD ascorbic acid (VITAMIN C) tablet 500 mg, 500 mg, Oral, Daily, Amanda Bermudez MD, 500 mg at 06/26/25 0843 baclofen (LIORESAL) tablet 10 mg, 10 mg, Oral, Q12H, Amanda Bermudez MD, 10 mg at 06/26/25 1018 sennosides-docusate (PERICOLACE) 8.6-50 MG per tablet 2 tablet, 2 tablet, Oral, BID PRN AND polyethylene glycol (MIRALAX) packet 17 g, 17 g, Oral, Daily PRN AND bisacodyl (DULCOLAX) EC tablet5 mg, 5 mg, Oral, Daily PRN AND bisacodyl (DULCOLAX) suppository 10 mg, 10 mg, Rectal, Daily PRN, Amanda Bermudez MD Calcium Replacement - Follow Nurse / BPA Driven Protocol, , Not Applicable, PRN, Amanda Bermudez MD carvedilol (COREG) tablet 3.125 mg, 3.125 mg, Oral, BID With Meals, Amanda Bermudez MD, 3.125 mg at 06/26/25 0842 clopidogrel (PLAVIX) tablet 75 mg, 75 mg, Oral, Daily, Amanda Bermudez MD, 75 mg at 06/26/25 0842 DAPTOmycin (CUBICIN) 550 mg in sodium chloride 0.9 % 50 mL IVPB, 6 mg/kg (Adjusted), Intravenous, Q24H, Amanda Bermudez MD famotidine (PEPCID) tablet 20 mg, 20 mg, Oral, BID AC, Arnoldo Crews, PharmD, 20 mg at 06/26/25 0850 finasteride (PROSCAR) tablet 5 mg, 5 mg, Oral, Daily, Amanda Bermudez MD, 5 mg at 06/26/25 0843 folic acid (FOLVITE) tablet 1 mg, 1 mg, Oral, Daily, Amanda Bermudez MD, 1 mg at 06/26/25 0842 gabapentin (NEURONTIN) capsule 200 mg, 200 mg, Oral, Q8H, Amanda Bermudez MD, 200 mg at 06/26/25 1402 heparin (porcine) 5000 UNIT/ML injection 5,000 Units, 5,000 Units, Subcutaneous, Q8H, Albert, IZABELLA Black, 5,000 Units at 06/26/25 1402 insulin glargine (LANTUS, SEMGLEE) injection 56 Units, 56 Units, Subcutaneous, Nightly, Amanda Bermudez MD ipratropium-albuterol (DUO-NEB) nebulizer solution 3 mL, 3 mL, Nebulization, Q6H PRN, Amanda Bermudez MD lamoTRIgine (LaMICtal) tablet 100 mg, 100 mg, Oral, Daily, Amanda Bermudez MD, 100 mg at 842 lamoTRIgine (LaMICtal) tablet 250 mg, 250 mg, Oral, Nightly, Amanda Bermudez MD, 250 mg at 06/26/25 0225 Magnesium Cardiology Dose Replacement - Follow Nurse / BPA Driven Protocol, , Not Applicable, PRN, Amanda Bermudez MD magnesium sulfate 4g/100mL (PREMIX) infusion, 4 g, Intravenous, Once, Hiro Santillan MD, 4 g at 06/26/25 1219 meropenem (MERREM) 500 mg in sodium chloride 0.9 % 100 mL MBP, 500 mg, Intravenous, Q6H, Duglas Andres MD methenamine (HIPREX) tablet 1 g, 1 g, Oral, BID With Meals, Amanda Bermudez MD, 1 g at 06/26/25 1219 multivitamin with minerals 1 tablet, 1 tablet, Oral, Daily, Amanda Bermudez MD, 1 tablet at 06/26/25 0843 [DISCONTINUED] morphine injection 2 mg, 2 mg, Intravenous, Q4H PRN, 2 mg at 06/26/25 0539 AND naloxone (NARCAN) injection 0.4 mg, 0.4 mg, Intravenous, Q5 Min PRN, Amanda Bermudez MD nitroglycerin (NITROSTAT) SL tablet 0.4 mg, 0.4 mg, Sublingual, Q5 Min PRN, Amadna Bermudez MD ondansetron (ZOFRAN) injection 4 mg, 4 mg, Intravenous, Q6H PRN, Amanda Bermudez MD oxyCODONE-acetaminophen (PERCOCET) 5-325 MG per tablet 1 tablet, 1 tablet, Oral, Q6H PRN, Hiro Santillan MD, 1 tablet at 06/26/25 1402 Phosphorus Replacement - Follow Nurse / BPA Driven Protocol, , Not Applicable, PRAidan Jeff Jennifer, MD Potassium Replacement - Follow Nurse / BPA Driven Protocol, , Not Applicable, PRN, Amanda Bermudez MD sacubitril-valsartan (ENTRESTO) 24-26 MG tablet 1 tablet, 1 tablet, Oral, BID, Amanda Bermudez MD, 1 tablet at 06/26/25 0843 Insert Peripheral IV, , , Once AND sodium chloride 0.9 % flush 10 mL, 10 mL, Intravenous, PRN, Ally Jeffers V, DIABETES NURSE sodium chloride 0.9 % flush 10 mL, 10 mL, Intravenous, Q12H, Amanda Bermudez MD, 10 mL at 06/26/25 0844 sodium chloride 0.9 % flush 10 mL, 10 mL, Intravenous, PRN, Amanda Bermudez MD sodium chloride 0.9 % infusion, 75 mL/hr, Intravenous, Continuous, Amanda Bermudez MD, Last Rate:75 mL/hr at 06/26/25 0843, 75 mL/hr at 06/26/25 0843 vancomycin (VANCOCIN) capsule 125 mg, 125 mg, Oral, 4x Daily, 125 mg at 06/26/25 1219 FOLLOWED BY [START ON 07/10/2025] vancomycin (VANCOCIN) capsule 125 mg, 125 mg, Oral, TID FOLLOWED BY [START ON 07/17/2025] vancomycin (VANCOCIN) capsule 125 mg, 125 mg, Oral, BID FOLLOWED BY [START ON 07/25/2025] vancomycin (VANCOCIN) capsule 125 mg, 125 mg, Oral, Daily FOLLOWED BY [START ON 08/01/2025] vancomycin (VANCOCIN) capsule 125 mg, 125 mg, Oral, Weekly, Duglas Andres MD [3] Allergies Allergen Reactions Keppra [Levetiracetam] Other (See Comments) Acute psychosis Bupropion Unknown (See Comments) Codeine Nausea Only Hydrocodone Unknown (See Comments) Ketorolac Tromethamine Unknown (See Comments) Cosigned by Flaco Ruiz MD at 06/27/2025 9:05 AM EDT Associated attestation - Flaco Ruiz MD - 06/27/2025 9:05 AM EDT I have reviewed this documentation and agree. I saw and evaluated the patient with the resident/VARUN. I discussed the case with the resident/VARUN and agree with the findings and plan as documented. * Lupe Albert APRN - 06/26/2025 10:19 AM EDTAssociated Order(s): Inpatient Vascular Surgery Consult Images from the original note were not included. VASCULAR SURGERY CONSULT NOTE Inpatient Vascular Surgery Consult Consult performed by: Lupe Albert APRN Consult ordered by: Amanda Bermudez MD Reason for consult: PAD History of Present Illness: Trung is a 70 y.o. male presenting with past medical history of hyperlipidemia, hypertension, migraines, history of HI, peripheral neuropathy, PAD, diabetes mellitus type 2, frequent falls, cellulitis, etc., presented to the ER with complaints of blood in his urine, left foot stump drainage, fatigue, and diarrhea. He reported having blood in his urine with associated foul odor along with severe fatigue. He reported that he has had diarrhea since last Wednesday to which his primary care prescribedmedication with minimal relief in bowel movements remained watery despite treatment. He reported that his foot has been throbbing and burning for approximately the last 6 months and noted increased re dness of the leg compared to usual along with fluid leakage from the foot stump area. He reported that he can feel the area but it did not hurt. He also reported that he does not follow with a vascular surgeon but has had interventions from our group in the past. He reportedly stopped smoking about15 years ago but uses plan brownies for pain and nausea management. He uses an electric wheelchair for mobility and has been receiving home health for the last week or so prior to admission. He was admitted to the hospital service for further evaluation and treatment. Vascular surgery was consulted. Past Medical History He has a past medical history of Anemia, Cellulitis, Diabetes mellitus, Frequent falls, History of DVT (deep vein thrombosis), Hyperlipidemia, Hypertension, Migraines, Myocardial infarction, Peripheral neuropathy, Pneumonia, Spinal stenosis, Wears dentures, and Wears glasses. Past Surgical History He has a past surgical history that includes Back surgery; Coronary angioplasty with stent; Interventional radiology procedure (N/A, 05/02/2019); Lumbar discectomy (N/A, 05/03/2019); Cardiac catheterization; Anterior cervical discectomy w/ fusion (Bilateral, 07/17/2020); Leg amputation through knee (Right); Incision and drainage foot (Left, 06/17/2023); incision and drainage leg (Left, 07/25/2023); Aortogram (N/A, 01/26/2024); Finger amputation (Left, 01/28/2024); Cardiac catheterization (N/A, 09/04/2024); and Interventional radiology procedure (Left, 09/07/2024). Family History: He family history includes Alcohol abuse in his father. Allergies: Keppra [levetiracetam], Bupropion, Codeine, Hydrocodone, and Ketorolac tromethamine Medications: Prescriptions Prior to Admission[1] Review of Systems Constitutional: Positive for activity change and fatigue. HENT: Negative. Eyes: Negative. Respiratory: Negative for shortness of breath. Cardiovascular: Positive for leg swelling. Gastrointestinal: Positive for diarrhea. Endocrine: Negative. Genitourinary: Positive for hematuria. Musculoskeletal: Positive for arthralgias and gait problem. Hx RIGHT BKA Skin: Positive for color change and wound. Left foot TMA wound Allergic/Immunologic: Negative. Neurological: Positive for weakness. Frequent falls Hematological: Negative. Psychiatric/Behavioral: ?memory loss? - he reports he does not remember seeing vascular in the past nor that he had an IVCF Vitals Blood pressure 148/65, pulse 91, temperature 97.8 ??F (36.6 ??C), temperature source Oral, resp. rate 18, height 182.9 cm (72 ), weight 114 kg (251 lb 5.2 oz), SpO2 99%. Physical Exam Gen: Awake; elderly white male; resting in bed HEENT: [place] conjunctivae, MMM Neck: Supple Lungs: Normal respiratory effort Heart: Reg s1, s2 Ext: hx right BKA; left foot TMA with surrounding erythema/edema and wound with slough/drainage/foul odor; motor intact; thickened flaky skin; palpable left DP; unable to palpate left PT pulse Skin: Exposed skin warm Neuro: Follows simple commands Psych: Apropriate mood Relevant Results: Imaging Results (Last 48 Hours) Procedure Component Value Units Date/Time CT Angiogram Lower Extremity Left [[id number]] Collected: 06/26/25 050 Updated: 06/26/25510 Narrative: CT ANGIOGRAM LOWER EXTREMITY LEFT Date of Exam: 06/26/2025 4:18 AM EDT Indication: Left leg limb ischemia. Comparison: Correlation with CT abdomen and pelvis 06/25/2025. Technique: CTA of the left lower extremity was performed before and after the uneventful intravenous administration of iodinated contrast. Reconstructed coronal and sagittal images were also obtained. In addition, a 3-D volume rendered image was created for interpretation. Automated exposure control and iterative reconstruction methods were used. Findings: CT angiography: There is moderate disease in the visualized aorta above the bifurcation. There is mild nonstenosing disease in the common iliac arteries. There is mild nonstenosing disease in the external iliac arteries and similar mild disease present in the internal iliac arteries. Right lower extremity: Patient is status post upnic-jhd-udfw amputation. There is mild disease in the SEWING SUPERVISOR and SFA. The PFA is occluded proximally with reconstitution. There is moderate segmental stenosing disease in the remainder of the SFA. Left lower extremity: Minimal SEWING SUPERVISOR disease. PFA is patent. There is mild SFA disease with moderate focal narrowing at the junction of the SFA and popliteal artery. The hemaz-hge-cbeu popliteal artery appears otherwise widely patent. There is mild below the knee popliteal artery disease. There appears to be embolization of the peroneal artery. Patency of the anterior and posterior tibial arteries is difficult to assess due to significant venous contamination and heavy calcification. Definite runoff into the left foot is seen in the posterior tibial artery. 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 Nonvascular findings: There is severe diffuse atrophy in the left lower extremity musculature particularly below the knee. The bones are markedly demineralized in the left foreleg. There is muscular atrophy in the right thigh. There is a moderate sized fat and sigmoid colon containing left inguinalhernia and a small fat-containing right inguinal hernia. There is marked urinary bladder wall thickening. IVC filter is partially seen and discussed on previous reports. The appendix is normal. Thereis no pelvic ascites. No acute osseous abnormality. There are moderate to severe lower lumbar degenerative changes. Impression: Impression: 1.There is mild disease in the left lower extremity with moderate focal narrowing at the junction of the SFA and popliteal artery. There appears to be embolization of the left left peroneal artery. Patency of the anterior and posterior tibial arteries is difficult to assess due to significant venous contamination and heavy calcification. Definite runoff into the left foot is seen in the posterior tibial artery. 2.Status post right lcjda-vkv-dcun amputation. There is occlusion of the proximal right PFA with reconstitution. 3.Severe diffuse atrophy in the left lower extremity musculature. 4.Moderate sized fat and sigmoid colon containing left inguinal hernia and small fat-containing right inguinal hernia. 5.Marked urinary bladder wall thickening. Correlate for cystitis. Electronically Signed: Hussain Lyles MD 06/26/2025 5:08 AM EDT Workstation ID: [id number] XR Chest 1 View [[id number]] Collected: 06/26/25411 Updated: 06/26/25415 Narrative: XR CHEST 1 VW Date of Exam: 06/26/2025 3:07 AM EDT Indication: cough. Comparison: 06/02/2025 Findings: Cardiomegaly is stable. Pulmonary vascularity is normal. There is atherosclerotic disease in the aorta. Mild right basilar atelectasis may be present. Lungs are otherwise clear. No pneumothorax. There is degenerative disease in the shoulders. Impression: Cardiomegaly with possible mild right basilar atelectasis. Electronically Signed: Brent Lubin MD 06/26/2025 4:13 AM EDT Workstation ID: [id number] CT Abdomen Pelvis With Contrast [[id number]] Collected: 06/25/251937 Updated: 06/25/252155 Addenda: ADDENDUM #1 IVC filter is present on imaging study. It is recommended that all patients with IVC filters in place have an active management care plan to monitor their IVC filter. If a care plan is not in place, patient should have a non emergent referral to an interventional specialist such as interventional radiology or other interventional vascular specialist for establishment of an IVC filter management care plan. Electronically Signed: Nehemias Ferraro 06/25/2025 9:53 PM EDT Workstation ID: [id number] ORIGINAL REPORT: CT ABDOMEN PELVIS W CONTRAST Date of Exam: 06/25/2025 7:05 PM EDT Indication: Diarrhea, hematuria, abdominal discomfort. Comparison: 06/02/2025 Technique: Axial CT images were obtained of the abdomen and pelvis following the uneventful intravenous administration of iodinated contrast. Reconstructed coronal and sagittal images were also obtained. Automated exposure control and iterative construction methods were used. Findings: Calcific atherosclerosis of the coronary arteries. No pleural or pericardial effusion. No suspicious infiltrate in the lower lungs. No definite ectopic bowel gas. No splenomegaly or suspicious splenic lesion. No suspicious hepatic abnormality. No definite acute biliary abnormality. No suspicious splenic or pancreatic abnormality. Aorta appears normal in caliber. There is calcific atherosclerosis of the aorta and branch vessels. IVC filter is present, as before. Lymph nodes do not appear significantly enlarged. Probable small bilateral upper pole renal cysts. There is expected excretion of contrast from the kidneys. No hydronephrosis. No dilated small bowel loops. No definite acute gastric abnormality. Small fat-containing umbilical hernia. There are bilateral inguinal hernias. Smaller right inguinal hernia contains fat. Larger left inguinal hernia contains a partial loop of sigmoid colon. No proximal dilatation. The appendix appears within normal limits. No definite findings of acute colonic inflammation. The bladder is moderately distended. Small amount of gas is present in the bladder, as before. Bladder wall thickening appears mildly decreased since the prior exam. Prostate does not appear significantly enlarged. De Los Santos catheter balloon and tip appears to terminate in the proximal penile urethra. There is some questionable wall thickening of the distal rectum. No other definite perirectal abnormality. There appears to be mild asymmetric prominence of the left inguinal lymph nodes. Severe left and moderate right hip osteoarthritis. Advanced degenerative changes in the lumbar spine. Mild chronic T11 and T12 height loss, as before. There is ankylosis at the sacroiliac joints. No visualized aggressive osseous lesion. Impression: 1.De Los Santos catheter balloon and tip appear to terminate in the proximal penile urethra. Recommend repositioning. 2.Moderate distention of the bladder with small amount of gas in the bladder, as before. Bladder wall thickening appears mildly decreased since the prior exam. Correlate with urinalysis. 3.Questionable wall thickening of the distal rectum. Correlate for symptoms of proctitis. 4.Bilateral inguinal hernias, larger on the left containing a partial loop of sigmoid colon. No proximal dilatation. 5.Mild asymmetric prominence of the left inguinal lymph nodes, likely reactive. Clinical follow-up recommended. 6.Calcific atherosclerosis. The ordering provider was notified of the results by Dr. Ferraro at 06/25/2025 7:54 PM EDT. Electronically Signed: Nehemias Ferraro 06/25/2025 7:55 PM EDT Workstation ID: [id number] Signed: 06/25/252152 by Nehemias Ferraro MD Narrative: CT ABDOMEN PELVIS W CONTRAST Date of Exam: 06/25/2025 7:05 PM EDT Indication: Diarrhea, hematuria, abdominal discomfort. Comparison: 06/02/2025 Technique: Axial CT images were obtained of the abdomen and pelvis following the uneventful intravenous administration of iodinated contrast. Reconstructed coronal and sagittal images were also obtained. Automated exposure control and iterative construction methods were used. Findings: Calcific atherosclerosis of the coronary arteries. No pleural or pericardial effusion. No suspicious infiltrate in the lower lungs. No definite ectopic bowel gas. No splenomegaly or suspicious splenic lesion. No suspicious hepatic abnormality. No definite acute biliary abnormality. No suspicious splenic or pancreatic abnormality. Aorta appears normal in caliber. There is calcific atherosclerosis of the aorta and branch vessels. IVC filter is present, as before. Lymph nodes do not appear significantly enlarged. Probable small bilateral upper pole renal cysts. There is expected excretion of contrast from the kidneys. No hydronephrosis. No dilated small bowel loops. No definite acute gastric abnormality. Small fat-containing umbilical hernia. There are bilateral inguinal hernias. Smaller right inguinal hernia contains fat. Larger left inguinal hernia contains a partial loop of sigmoid colon. No proximal dilatation. The appendix appears within normal limits. No definite findings of acute colonic inflammation. The bladder is moderately distended. Small amount of gas is present in the bladder, as before. Bladder wall thickening appears mildly decreased since the prior exam. Prostate does not appear significantly enlarged. De Los Santos catheter balloon and tip appears to terminate in the proximal penile urethra. There is some questionable wall thickening of the distal rectum. No other definite perirectal abnormality. There appears to be mild asymmetric prominence of the left inguinal lymph nodes. Severe left and moderate right hip osteoarthritis. Advanced degenerative changes in the lumbar spine. Mild chronic T11 and T12 height loss, as before. There is ankylosis at the sacroiliac joints. No visualized aggressive osseous lesion. Impression: Impression: 1.De [place] Santos catheter balloon and tip appear to terminate in the proximal penile urethra. Recommend repositioning. 2.Moderate distention of the bladder with small amount of gas in the bladder, as before. Bladder wall thickening appears mildly decreased since the prior exam. Correlate with urinalysis. 3.Questionable wall thickening of the distal rectum. Correlate for symptoms of proctitis. 4.Bilateral inguinal hernias, larger on the left containing a partial loop of sigmoid colon. No proximal dilatation. 5.Mild asymmetric prominence of the left inguinal lymph nodes, likely reactive. Clinical follow-up recommended. 6.Calcific atherosclerosis. The ordering provider was notified of the results by Dr. Ferraro at 06/25/2025 7:54 PM EDT. Electronically Signed: Nehemias Ferraro 06/25/2025 7:55 PM EDT Workstation ID: [id number] XR Foot 3+ View Left [[id number]] Collected: 06/25/251858 Updated: 06/25/251905 Narrative: XR FOOT 3+ VW LEFT Date of Exam: 06/25/2025 6:15 PM EDT Indication: diabetic ulcer. Comparison: August 2024 Findings: Bones are grossly osteopenic. There is marked soft tissue swelling overlying dorsum of the foot andat the stump distal to the metatarsal ray resection sites. There is shallow soft tissue ulceration at the dorsum of the foot distally. 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 There is dense vascular calcification noted. Impression: Impression: Marked soft tissue swelling at the stump and dorsum of the foot suggest cellulitis.. Small shallow soft tissue ulceration distal dorsum of the foot No acute osseous abnormality. If there is concern for osteomyelitis MRI is recommended. Electronically Signed: Duglas Lay MD 06/25/2025 7:03 PM EDT Workstation ID: [id number] Lab Results (last 48 hours) Procedure Component Value Units Date/Time Wound Culture - Swab, Foot, Left [[id number]] Collected: 06/25/251817 Specimen: Swab from Foot, Left Updated: 06/26/25 101 Wound Culture Growth present, too young to evaluate Gram Stain Few (2+) WBCs seen Few (2+) Gram positive cocci in pairs, chains and clusters Few (2+) Gram negative bacilli TSH Rfx On Abnormal To Free T4 [[id number]] (Normal) Collected: 06/26/25740 Specimen: Blood Updated: 06/26/25946 TSH 0.340 uIU/mL Ferritin [[id number]] (Normal) Collected: 06/26/25740 Specimen: Blood Updated: 06/26/25946 Ferritin 108.00 ng/mL Narrative: Results may be falsely decreased if patient taking Biotin. Comprehensive Metabolic Panel [[id number]] (Abnormal) Collected: 06/26/25740 Specimen: Blood Updated: 06/26/25946 Glucose 134 mg/dL BUN 19.1 mg/dL Creatinine 0.88 mg/dL Sodium 142 mmol/L Potassium 3.7 mmol/L Chloride 112 mmol/L CO2 21.4 mmol/L Calcium 8.3 mg/dL Total Protein 7.1 g/dL Albumin 3.0 g/dL ALT (SGPT) 13 U/L AST (SGOT) 15 U/L Alkaline Phosphatase 116 U/L Total Bilirubin 0.2 mg/dL Globulin 4.1 gm/dL Comment: Calculated Result A/G Ratio 0.7 g/dL BUN/Creatinine Ratio 21.7 Anion Gap 8.6 mmol/L eGFR 91.9 mL/min/1.73 Narrative: GFR Categories in Chronic Kidney Disease (CKD) GFR Category GFR (mL/min/1.73) Interpretation G1 90 or greater Normal or high (1) G2 60-89 Mild decrease (1) G3a 45-59 Mild to moderate decrease G3b 30-44 Moderate to severe decrease G4 15-29 Severe decrease G5 14 or less Kidney failure (1)In the absence of evidence of kidney disease, neither GFR category G1 or G2 fulfill the criteriafor CKD. eGFR calculation 2020 CKD-EPI creatinine equation, which does not include race as a factor Magnesium [[id number]] (Normal) Collected: 06/26/25740 Specimen: Blood Updated: 06/26/25946 Magnesium 1.8 mg/dL Phosphorus [[id number]] (Normal) Collected: 06/26/25740 Specimen: Blood Updated: 06/26/25946 Phosphorus 2.9 mg/dL Lipid Panel [[id number]] (Abnormal) Collected: 06/26/25740 Specimen: Blood Updated: 06/26/25946 Total Cholesterol 154 mg/dL Triglycerides 131 mg/dL HDL Cholesterol 27 mg/dL LDL Cholesterol 103 mg/dL VLDL Cholesterol 24 mg/dL LDL/HDL Ratio 3.73 Narrative: Cholesterol Reference Ranges (U.S. Department of Health [...] High 160-189 mg/dL Very High >189 mg/dL LDL is calculated using the NIH LDL-C calculation. CK [[id number]] (Normal) Collected: 06/26/25740 Specimen: Blood Updated: 06/26/25946 Creatine Kinase 59 U/L Iron Profile w/o Ferritin [[id number]] (Abnormal) Collected: 06/26/25740 Specimen: Blood Updated: 06/26/25946 Iron 14 mcg/dL Iron Saturation (TSAT) 5 % Transferrin 172 mg/dL TIBC 256 mcg/dL Hemoglobin A1c [[id number]] (Abnormal) Collected: 06/26/25740 Specimen: Blood Updated: 06/26/25945 Hemoglobin A1C 7.82 % Narrative: Hemoglobin A1C Ranges: Increased Risk for Diabetes 5.7% to 6.4% Diabetes >= 6.5% Diabetic Goal < 7.0% Lactic Acid, Plasma [[id number]] (Normal) Collected: 06/26/25740 Specimen: Blood Updated: 06/26/25940 Lactate 1.2 mmol/L Comment: Falsely depressed results may occur on samples drawn from patients receiving N-Acetylcysteine (NAC) or Metamizole. Protime-INR [[id number]] (Abnormal) Collected: 06/26/25740 Specimen: Blood Updated: 06/26/25930 Protime 16.7 Seconds INR 1.27 CBC Auto Differential [[id number]] (Abnormal) Collected: 06/26/25739 Specimen: Blood Updated: 06/26/25916 WBC 9.69 10*3/mm3 RBC 3.78 10*6/mm3 Hemoglobin 8.8 g/dL Hematocrit 29.3 % MCV 77.5 fL MCH 23.3 pg MCHC 30.0 g/dL RDW 16.6 % RDW-SD 46.7 fl MPV 9.8 fL Platelets 271 10*3/mm3 Neutrophil % 67.9 % Lymphocyte % 18.3 % Monocyte % 8.3 % Eosinophil % 4.4 % Basophil % 0.7 % Immature Grans % 0.4 % Neutrophils, Absolute 6.58 10*3/mm3 Lymphocytes, Absolute 1.77 10*3/mm3 Monocytes, Absolute 0.80 10*3/mm3 Eosinophils, Absolute 0.43 10*3/mm3 Basophils, Absolute 0.07 10*3/mm3 Immature Grans, Absolute 0.04 10*3/mm3 nRBC 0.0 /100 WBC Vitamin B12 [[id number]] Collected: 06/26/25740 Specimen: Blood Updated: 06/26/25911 MRSA Screen, PCR (Inpatient) - Swab, Nares [[id number]] (Abnormal) Collected: 06/26/2545 Specimen: Swab from Nares Updated: 06/26/25849 MRSA PCR Positive Narrative: The negative predictive value of this diagnostic test is high and should only be used to consider de-escalating anti-MRSA therapy. A positive result may indicate colonization with MRSA and must be correlated clinically. Gastrointestinal Panel, PCR - Stool, Per Rectum [[id number]] (Abnormal) Collected: 06/26/2545 Specimen: Stool from Per Rectum Updated: 06/26/25849 Campylobacter Not Detected Plesiomonas shigelloides Not Detected Salmonella Not Detected Vibrio Not Detected Vibrio cholerae Not Detected Yersinia enterocolitica Not Detected Enteroaggregative E. coli (EAEC) Not Detected Enteropathogenic E. coli (EPEC) Not Detected Enterotoxigenic E. coli (ETEC) lt/st Not Detected Shiga-like toxin-producing E. coli (STEC) stx1/stx2 Not Detected Shigella/Enteroinvasive E. coli (EIEC) Not Detected Cryptosporidium Not Detected Cyclospora cayetanensis Not Detected Entamoeba histolytica Not Detected Giardia lamblia Not Detected Adenovirus F40/41 Not Detected Astrovirus Not Detected Norovirus GI/GII Detected Comment: If a positive Norovirus result is inconsistent with clinical presentation, the positive Norovirus result should be confirmed using another method. Rotavirus A Not Detected Sapovirus (I, II, IV or V) Not Detected Clostridioides difficile toxin Ag, Reflex - Stool, Per Rectum [[id number]] (Normal) Collected: 06/26/2545 Specimen: Stool from Per Rectum Updated: 06/26/25835 C.diff Toxin Ag Negative Narrative: DNA from a toxigenic strain of C.difficile was detected, although the free toxin itself was not detected. These findings are consistent with C.difficile colonization and may not reflect actual C.difficile infection. Clinical correlation needed. Clostridioides difficile Toxin - Stool, Per Rectum [[id number]] (Abnormal) Collected: 06/26/2545 Specimen: Stool from Per Rectum Updated: 06/26/25 0755 Narrative: The following orders were created for panel order Clostridioides difficile Toxin - Stool, Per Rectum. Procedure Abnormality Status --------- ------ Clostridioides difficile...[[id number]] Abnormal Final result Please view results for these tests on the individual orders. Clostridioides difficile Toxin, PCR - Stool, Per Rectum [[id number]] (Abnormal) Collected: 06/26/2545 Specimen: Stool from Per Rectum Updated: 06/26/25 075 Toxigenic C. difficile by PCR Detected Narrative: DNA from a toxigenic strain of C.difficile has been detected. POC Glucose Once [[id number]] (Normal) Collected: 06/26/25 0557 Specimen: Blood Updated: 06/26/25 0600 Glucose 119 mg/dL Comment: Serial Number: [id number]: [id number] Blood Culture - Blood, Hand, Right [[id number]] Collected: 06/25/252029 Specimen: Blood from Hand, Right Updated: 06/26/25 032 POC Glucose Once [[id number]] (Normal) Collected: 06/26/2550 Specimen: Blood Updated: 06/26/25 0054 Glucose 83 mg/dL Comment: Serial Number: [id number]: [id number] Urinalysis, Microscopic Only - Indwelling Urethral Catheter [[id number]] (Abnormal) Collected: 06/25/252000 Specimen: Urine from Indwelling Urethral Catheter Updated: 06/25/252028 RBC, UA 6-10 /HPF WBC, UA Too Numerous to Count /HPF Bacteria, UA 4+ /HPF Squamous Epithelial Cells, UA 0-2 /HPF Yeast, UA Moderate/2+ Budding Yeast /HPF Hyaline Casts, UA 7-12 /LPF Methodology Manual Light Microscopy Urine Culture - Urine, Indwelling Urethral Catheter [[id number]] Collected: 06/25/252000 Specimen: Urine from Indwelling Urethral Catheter Updated: 06/25/252028 Urinalysis With Culture If Indicated - Indwelling Urethral Catheter [[id number]] (Abnormal) Collected: 06/25/252000 Specimen: Urine from Indwelling Urethral Catheter Updated: 06/25/252019 Color, UA Yellow Appearance, UA Turbid pH, UA 6.0 Specific [place], UA 1.011 Glucose, UA Negative Ketones, UA Negative Bilirubin, UA Negative Blood, UA Large (3+) Protein, UA Trace Leuk Esterase, UA Large (3+) Nitrite, UA Positive Urobilinogen, UA 0.2 E.U./dL Narrative: In absence of clinical symptoms, the presence of pyuria, bacteria, and/or nitrites on the urinalysis result does not correlate with infection. Blood Culture - Blood, Arm, Left [[id number]] Collected: 06/25/251819 Specimen: Blood from Arm, Left Updated: 06/25/251915 Comprehensive Metabolic Panel [[id number]] (Abnormal) Collected: 06/25/251816 Specimen: Blood Updated: 06/25/251902 Glucose 173 mg/dL BUN 27.3 mg/dL Creatinine 1.21 mg/dL Sodium 138 mmol/L Potassium 4.4 mmol/L Chloride 106 mmol/L CO2 21.2 mmol/L Calcium 8.3 mg/dL Total Protein 7.2 g/dL Albumin 3.2 g/dL ALT (SGPT) 14 U/L AST (SGOT) 15 U/L Alkaline Phosphatase 127 U/L Total Bilirubin 0.2 mg/dL Globulin 4.0 gm/dL Comment: Calculated Result A/G Ratio 0.8 g/dL BUN/Creatinine Ratio 22.6 Anion Gap 10.8 mmol/L eGFR 64.0 mL/min/1.73 Narrative: GFR Categories in Chronic Kidney Disease (CKD) GFR Category GFR (mL/min/1.73) Interpretation G1 90 or greater Normal or high (1) G2 60-89 Mild decrease (1) G3a 45-59 Mild to moderate decrease G3b 30-44 Moderate to severe decrease G4 15-29 Severe decrease G5 14 or less Kidney failure (1)In the absence of evidence of kidney disease, neither GFR category G1 or G2 fulfill the criteriafor CKD. eGFR calculation 2020 CKD-EPI creatinine equation, which does not include race as a factor Procalcitonin [[id number]] (Normal) Collected: 06/25/251816 Specimen: Blood Updated: 06/25/251902 Procalcitonin 0.12 ng/mL Narrative: As a Marker for Sepsis (Non-Neonates): 1. [...] Day 4 values are available. Refer to [email or web address] Change in PCT <=80% A decrease of [...] diagnosed with severe sepsis or septic shock. C-reactive Protein [[id number]] (Abnormal) Collected: 06/25/251816 Specimen: Blood Updated: 06/25/25 190 C-Reactive Protein 4.34 mg/dL Lactic Acid, Plasma [[id number]] (Normal) Collected: 06/25/251816 Specimen: Blood Updated: 06/25/25 185 Lactate 1.7 mmol/L Comment: Falsely depressed results may occur on samples drawn from patients receiving N-Acetylcysteine (NAC) or Metamizole. CBC & Differential [[id number]] (Abnormal) Collected: 06/25/251816 Specimen: Blood Updated: 06/25/25 183 Narrative: The following orders were created for panel order CBC & Differential. Procedure Abnormality Status --------- ------ CBC Auto Differential[[id number]] Abnormal Final result Please view results for these tests on the individual orders. CBC Auto Differential [[id number]] (Abnormal) Collected: 06/25/251816 Specimen: Blood Updated: 06/25/251833 WBC 9.96 10*3/mm3 RBC 3.91 10*6/mm3 Hemoglobin 8.9 g/dL Hematocrit 29.8 % MCV 76.2 fL MCH 22.8 pg MCHC 29.9 g/dL RDW 16.6 % RDW-SD 45.8 fl MPV 9.5 fL Platelets 281 10*3/mm3 Neutrophil % 70.8 % Lymphocyte % 14.9 % Monocyte % 10.1 % Eosinophil % 3.2 % Basophil % 0.5 % Immature Grans % 0.5 % Neutrophils, Absolute 7.05 10*3/mm3 Lymphocytes, Absolute 1.48 10*3/mm3 Monocytes, Absolute 1.01 10*3/mm3 Eosinophils, Absolute 0.32 10*3/mm3 Basophils, Absolute 0.05 10*3/mm3 Immature Grans, Absolute 0.05 10*3/mm3 nRBC 0.0 /100 WBC Assessment & Plan - Severe sepsis, POA - LEFT lower extremity cellulitis with wound infection - hx ESBL Klebsiella pneumoniae and pseudomonas aeruginosa - Urinary tract infection with hematuria - Severe PAD - Hx RIGHT BKA - Hx LLE revascularization with TMA - Diabetes mellitus type 2 with neuropathy - Hx IVC filter placement - Acute on chronic anemia - Hypertension - Coronary artery disease - Hx Medical non-compliance - Hx seizures - Bilateral inguinal hernias - BPH - Obesity - Former smoker - reportedly stopped 15 years ago - ?Memory loss? Plan: - ID following for antx guidance - eliquis held in light of possible procedures - pain control PRN - continue plavix - glycemic control - add heparin SQ Q8H DVT ppx - MRI pending - further vascular recommendations pending study results -- he is adamant about no further amputations - please call for any further vascular concerns Signed: Electronically signed by Lupe Albert, IZABELLA 06/26/25 [1] Medications Prior to Admission Medication Sig Dispense Refill Last Dose/Taking apixaban (ELIQUIS) 5 MG tablet tablet Take 1 tablet by mouth 2 (Two) Times a Day. baclofen (LIORESAL) 10 MG tablet Take 1 tablet by mouth Every 12 (Twelve) Hours. 60 tablet 0 carvedilol (COREG) 3.125 MG tablet Take 1 tablet by mouth 2 (Two) Times a Day With Meals. 60 tablet0 clopidogrel (PLAVIX) 75 MG tablet Take 1 tablet by mouth Daily. 30 tablet 0 finasteride (PROSCAR) 5 MG tablet Take 1 tablet by mouth Daily. folic acid (FOLVITE) 1 MG tablet Take [...] as directed Every Night. For 30 days lamoTRIgine (LaMICtal) 100 MG tablet Take 1 tablet by mouth 2 (Two) Times a Day. 100mg AM + 250mg PM lamoTRIgine (LaMICtal) 150 MG tablet Take 1 [...] by mouth 2 (Two) Times a Day. sacubitril-valsartan (ENTRESTO) 24-26 MG tablet Take 1 tablet by mouth 2 (Two) Times a Day. vitamin C (ASCORBIC ACID) 250 MG tablet Take 2 tablets by mouth Daily. Cosigned by Jared Marcano MD at 06/26/2025 3:07 PM EDT Associated attestation - Jared Marcano MD - 06/26/2025 3:07 PM EDT Images from the original note were not included. I have reviewed this documentation and agree. Additionally: 01/26/24 LLE revascularization 01/28/24 LEFT TMA 09/04/24 LLE revascularization 09/04/24 LEFT Pr AVF embolization 06/26/25 LLE arterial duplex findings reviewed A/P: non-healing LEFT TMA wound Protein-calorie malnutrition, mild - Alb 3.0 Wound infection - 06/25/25 WCx NGTD - pt would require LLE angiogram with operative debridement and wound vac - pt has been previously told about hospice/palliative care - will need to find time in the OR to schedule procedure - needs protein supplementation * Annie Huber, MS,RD,LD - 06/26/2025 10:15 AM EDTAssociated Order(s): IP CONSULT TO NUTRITION SERVICES Patient Name: Trung Pool Date of : 1955 Admission date: 06/25/2025 Reason for Encounter: MD Consult and MST 2-3 or Nursing Admission Screen [facility] Clinical Nutrition Assessment Subjective Subjective Information 06/26 Pt resting in bed at time of visit, finished breakfast tray (RD observed pt ate ~50%). Pt states hehas not had an appetite x last ~1 month-notes recent hospital admit. Pt states he is eating about half of usual intake and in the past 9 days has had ongoing diarrhea which has caused him to eat evenless. Pt states he has had 14lb wt loss from UBW of 265lbs over the past month as well. Pt states he usually drinks Boost at home, is willing to drink while here. Pt notes food preferences. Objective H&P and Current Problems H&P Past [...] Cecil Buenrostro Jr., MD; Location: [facility]; Service: Orthopedics; Laterality: Left; ANTERIOR CERVICAL DISCECTOMY W/ FUSION Bilateral 07/17/2020 Procedure: Cervical discectomy anterior with fusion C3-4; Surgeon: Tyree Tan MD; Location:[facility]; Service: Neurosurgery; Laterality: Bilateral; AORTOGRAM N/A [...] femoral access; Surgeon: Jared Marcano MD; Location: [facility]; Service: Peripheral Vascular; Laterality: N/A; CORONARY ANGIOPLASTY WITH STENT PLACEMENT stent x 1 INCISION AND DRAINAGE FOOT Left 06/17/2023 Procedure: LEFT FOOT DEBRIDEMENT WOUND VACUUM ASSISTED CLOSURE; Surgeon: Cecil Buenrostro Jr., MD;Location: [facility] OR; Service: Orthopedics; Laterality: Left; INCISION AND DRAINAGE LEG Left 07/25/2023 Procedure: INCISION AND DRAINAGE HEEL, WOUND VAC; Surgeon: Cecil Buenrostro Jr., MD; Location: [facility] OR; Service: Orthopedics; Laterality: Left; INTERVENTIONAL RADIOLOGY PROCEDURE N/A 05/02/2019 Procedure: IVC FILTER PLACEMENT; Surgeon: Pedro Zapien MD; Location: [facility] LOCATION; Service: Interventional Radiology INTERVENTIONAL RADIOLOGY PROCEDURE Left 09/07/2024 Procedure: LEFT peroneal arteriovenous fistula embolization - Right femoral access; Surgeon: Jared Marcano MD; Location: [facility] LOCATION; Service: Cardiovascular; Laterality: Left; Please coordinate with Gautam Patel ([facility]) [phone] who will bring coils LUMBAR DISCECTOMY N/A 05/03/2019 Procedure: THORACIC LAMINECTOMY T11-12; Surgeon: Tyree Tan MD; Location: [facility]; Service: Neurosurgery Current Problems Admission Diagnosis: Cellulitis [L03.90] Problem List: Severe sepsis Primary hypertension Seizure disorder Coronary artery disease involving [place] coronary artery of [place] heart without angina pectoris PAD (peripheral artery disease) Type 2 diabetes mellitus, with long-term current use of insulin Cellulitis Acute UTI (urinary tract infection) Diarrhea of presumed infectious origin Acute on chronic blood loss anemia BPH without obstruction/lower urinary tract symptoms GERD without esophagitis Bilateral inguinal hernia Applicable Nutrition Hx Historical R BKA Anthropometrics Height: 182.9 cm (72 ) Weight: 114 kg (251 lb 5.2 oz) (06/26/25 0054) Weight Method: Bed scale BMI (Calculated): 34.1 Trending Weight Changes 06/26/25: Unknown/Unable to Determine, pt reporting 14lb wt loss x 1 month however previously only stated wts 17lb/6.4% x ? 10 months Weight History Wt Readings from Last 10 Encounters: 06/26/25 0054 114 kg (251 lb 5.2 oz) 06/25/25 1814 120 kg (265 lb) 06/02/25 0932 120 kg (265 lb) 09/01/24 1128 122 kg (268 lb) 08/31/24 1756 122 kg (268 lb 14.4 oz) 08/31/24 1244 113 kg (250 lb) 01/15/24 1509 135 kg (297 lb) 01/15/24 1508 135 kg (297 lb 9.9 oz) 09/01/23 0558 135 kg (296 lb 12.8 oz) 08/31/23 2208 129 kg (285 lb) 08/03/23 2000 130 kg (285 lb 15 oz) 07/23/23 0147 127 kg (279 lb 3.2 oz) 07/22/23 1945 120 kg (265 lb) 07/14/23 0529 (!) 175 kg (384 lb 12.8 oz) 07/12/23 1240 (!) 175 kg (385 lb 5.8 oz) 07/09/23 0500 (!) 177 kg (390 lb 3.4 oz) 07/08/23 1604 122 kg (268 lb) 07/08/23 1523 122 kg (268 lb 15.4 oz) 07/07/23 1329 122 kg (270 lb) 06/24/23 1228 126 kg (277 lb 6.4 oz) 06/16/23 0436 130 kg (287 lb 3.2 oz) 06/14/23 1707 128 kg (283 lb) 06/14/23 1706 128 kg (283 lb) 06/13/23 2333 129 kg (283 lb 11.2 oz) 06/13/23 1651 120 kg (265 lb) 06/21/22 1825 102 kg (224 lb 14.4 oz) 06/21/22 0922 99.8 kg (220 lb) Labs Results from last 7 days Lab Units 06/26/25 0741 06/25/25 1817 SODIUM mmol/L 142 138 POTASSIUM mmol/L 3.7 4.4 GLUCOSE mg/dL 134* 173* BUN mg/dL 19.1 27.3* CREATININE mg/dL 0.88 1.21 CALCIUM mg/dL 8.3* 8.3* PHOSPHORUS mg/dL 2.9 -- MAGNESIUM mg/dL 1.8 -- ALBUMIN g/dL 3.0* 3.2* CRP mg/dL -- 4.34* LACTATE mmol/L 1.2 1.7 BILIRUBIN mg/dL 0.2 0.2 ALK PHOS U/L 116 127* AST (SGOT) U/L 15 15 ALT (SGPT) U/L 13 14 TRIGLYCERIDES mg/dL 131 -- Results from last 7 days Lab Units 06/26/25 0741 06/26/25 0740 06/25/25 1817 PLATELETS 10*3/mm3 -- 271 281 HEMOGLOBIN g/dL -- 8.8* 8.9* HEMATOCRIT % -- 29.3* 29.8* IRON mcg/dL 14* -- -- Lab Results Component Value Date HGBA1C 7.82 (H) 06/26/2025 Medications Scheduled Medications [Held by provider] apixaban, 5 mg, Oral, BID vitamin C, 500 mg, Oral, Daily baclofen, 10 mg, Oral, Q12H carvedilol, 3.125 mg, Oral, BID With Meals clopidogrel, 75 mg, Oral, Daily DAPTOmycin, 6 mg/kg (Adjusted), Intravenous, Q24H famotidine, 20 mg, Oral, BID AC finasteride, 5 mg, Oral, Daily folic acid, 1 mg, Oral, Daily gabapentin, 200 mg, Oral, Q8H insulin glargine, 56 Units, Subcutaneous, Nightly lamoTRIgine, 100 mg, Oral, Daily lamoTRIgine, 250 mg, Oral, Nightly meropenem, 500 mg, Intravenous, Once meropenem, 500 mg, Intravenous, Q6H methenamine, 1 g, Oral, BID With Meals multivitamin with minerals, 1 tablet, Oral, Daily sacubitril-valsartan, 1 tablet, Oral, BID sodium chloride, 10 mL, Intravenous, Q12H vancomycin, 125 mg, Oral, 4x Daily Followed by [START ON 07/10/2025] vancomycin, 125 mg, Oral, TID Followed by [START ON 07/17/2025] vancomycin, 125 mg, Oral, BID Followed by [START ON 07/25/2025] vancomycin, 125 mg, Oral, Daily Followed by [START ON 08/01/2025] vancomycin, 125 mg, Oral, Weekly Infusions sodium chloride, 75 mL/hr, Last Rate: 75 mL/hr (06/26/25 0843) PRN Medications acetaminophen OR acetaminophen OR acetaminophen aluminum-magnesium hydroxide-simethicone senna-docusate sodium AND polyethylene glycol AND bisacodyl AND bisacodyl Calcium Replacement - Follow Nurse / BPA Driven Protocol ipratropium-albuterol Magnesium Cardiology Dose Replacement - Follow Nurse / BPA Driven Protocol Morphine AND naloxone nitroglycerin ondansetron Phosphorus Replacement - Follow Nurse / BPA Driven Protocol Potassium Replacement - Follow Nurse / BPA Driven Protocol Insert Peripheral IV AND sodium chloride sodium chloride Physical Findings Chewing/Swallowing No issues identified at this time Dentition Mouth/Teeth WDL: .WDL except, teeth Teeth Symptoms: tooth/teeth missing, dental appliance present Pt reports dentures are ill-fitting though tolerating current textures Skin Wound Left posterior heel-Pressure Injury Stage: Unstageable (06/26/25 0301) WOC consult pending Bowel function Last Bowel Movement: 06/25/25 (06/26/25 0054) Edema N/a Intake & Output (last 3 days) 06/23 0706/24 0706/24 0701 06/25 0706/25 0701 06/26 0700 06/26 0706/27 0700 I.V. (mL/kg) 250 (2.2) 3075 (27) IV Piggyback 100 Total Intake(mL/kg) 250 (2.2) 3175 (27.9) Urine (mL/kg/hr) 1300 Total Output 1300 Net -1050 +3175 Nutrition Focused Physical Exam 06/26/25: NFPE completed and not consistent with nutrition diagnosis of malnutrition at this time using AND/ASPEN criteria. 1 Current Nutrition Orders & Evaluation of Intake Oral Nutrition Food Allergies/Intolerances NKFA Current PO Diet Diet: Cardiac; Healthy Heart (2-3 Na+); Fluid Consistency: Thin (IDDSI 0) Oral Nutrition Supplement None Trending % PO Intake 06/26/25: 50% x [address] observation 2 Assessment & Plan Nutrition Diagnosis and Goals Nutrition Diagnosis 1 Predicted Inadequate Energy Intake r/t diarrhea and recent hospital admit AEBpt report Nutrition Diagnosis 2 Unintended Weight Loss r/t lack of appetite, diarrhea AEB pt report 14lb wt loss x 1 month. Goal(s) Establish PO Intake, Increase PO Intake , and Accepts Oral Nutrition Supplement Nutrition Intervention and Prescription Intervention Start oral nutrition supplement Diet Supplement Boost GC (papito) BID Education Provided 3 Monitoring/Evaluation Monitor/Evaluation Per Protocol, PO Intake, Oral Nutrition Supplement Intake, Weight, and Skin Status RD Follow-Up Encounter 7 days and prn Electronically signed by: Annie Huber MS,RD,LD 06/26/25 10:15 EDT * Gautam Tubbs MD - 06/26/2025 8:49 AM EDTAssociated Order(s): IP CONSULT TO GENERAL SURGERY GENERAL SURGERY CONSULT NOTE Date of Service: 06/26/2025 Trung Shipmanroverto [id number] 1955 Referring Provider: Hiro Santillan MD Location of Consult: N Reason for Consultation: bilateral asymptomatic inguinal hernias Hospital Problem List: ICD-10-CM ICD-9-CM 1. Cellulitis of left lower extremity L03.116 682.6 2. Hematuria, unspecified type R31.9 599.70 3. Urinary tract infection associated with indwelling urethral catheter, initial encounter T83.617I439.64 N39.0 599.0 4. Diarrhea, unspecified type R19.7 787.91 Subjective History of Present Illness I am seeing, Trung Pool, in consultation for Hiro Santillan MD regarding incidentally identified bilateral inguinal hernias. Mr. Trung Pool is a 70 year old gentleman with a Hx of CAD, PAD, Type 2 diabetes and history of right leg BKA amputation presenting with hematuria, left foot stump drainage, fatigue and diarrhea, but was identified to have incidental bilateral inguinal hernias with contained bowel. For full history of his presenting problems, please refer to medicine/vascular H&Ps/consults. Regarding his hernias, patient was unaware he had inguinal hernias present. He is not active at home given his BKA and poor overall health. He has never had any episodes of incarceration or strangulation. He denies painhis his groin. He denies obstipation. He has had some mild generalized crampy abdominal pain, but continues to have bowel movements which has been diarrhea. Denies other symptom associated with his inguinal hernias. Past History Past Medical History: Diagnosis Date ??? Anemia ??? Cellulitis ??? Diabetes mellitus ??? Frequent falls ??? History of DVT (deep vein thrombosis) ??? Hyperlipidemia ??? Hypertension ??? Migraines ??? Myocardial infarction ??? Peripheral neuropathy ??? Pneumonia ??? Spinal stenosis ??? Wears dentures FULL ??? Wears glasses Past Surgical History[1] Allergies[2] Family History Problem Relation Age of Onset ??? Alcohol abuse Father Social History[3] Medications Medications Ordered Prior to Encounter[4] Current Medications[5] Objective Objective BP 148/65 (BP Location: Left arm, Patient Position: Lying) Pulse 91 Temp 97.8 ??F (36.6 ??C) (Oral) Resp 18 Ht 182.9 cm (72 ) Wt 114 kg (251 lb 5.2 oz) SpO2 99% BMI 34.09 kg/m?? Body mass index is 34.09 kg/m??. General: alert, oriented x 3, ill-appearing, no acute distress HEENT: normocephalic, atraumatic, sclerae anicteric, external ears normal Cardiovascular: regular rate and regular rhythm Pulmonary: breathing comfortably on room air, no respiratory distress Gastrointestinal: soft, mild diffuse tenderness to palpation but no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 notes, left lower extremity cellulitis with pressure injury at buttocks. 06/15/24 Dr Colón saw and recommended amputation; patient refused ; see his note for detail 06/17/23 Dr buenrostro discussed potential options for heel debridement with patient; MRI no osteomyelitis per radiology; taken to OR PROCEDURE: Left 73062: Debridement of skin and subcutaneous tissue 93736: wound vacuum-assisted closure, wound measuring 2.5 cm [...] 07/25/[address] Buenrostro PROCEDURE: Left 81863: Debridement of skin and subcutaneous tissue 29968: Wound vacuum-assisted closure culture data with MRSA/aneta. [...] possible intervention 01/28/24 Dr. Buenrostro PROCEDURE: Left 87417: 2nd lesser toe amputation at the level of the metatarsophalangeal joint 98414-20: 3rd lesser toe amputation at the level of the metatarsophalangeal joint 02/01/24 [employer] overnight , shaking epsode 02/04/24 overnight events [...] reports being followed by Dr. Faust in [place] and has seen Dr Oneal (ID in [place]); he is not a good historian with respect to detail. Reports having had some further surgery to the left foot although he is unable to clarify specific date/procedure. Culture at [facility] August 07, 2024 from left foot wound with ESBL Klebsiella pneumoniae and pseudomonas aeruginosa (microbiology lab there reports the Pseudomonas is sensitive to Merrem). He reports his outpatient practitioners had recommended admission to the hospital for IV antibiotics but patient had refused at that time. He also reports that he was in the emergency room at [facility] mid August, no cultures done at that time. Patient reports practitioners at [facility] had recommended higher level amputation but patient has continued to refuse that. He was readmitted to [facility] on August 31, 2024 with worsening odor/drainage andredness/pain to the left lower extremity in recent days/weeks. He reports having been taking outpatient Levaquin; prior history MRSA/PSA and ESBL organisms 09/04/24 Dr Marcano. Procedure/CPT?? Codes: RIGHT SEWING SUPERVISOR access - ultrasound guided Aortogram with LEFT lower extremity run-off LEFT PT angioplasty ([id number] Nanocross) LEFT plantar angioplasty ([id number] Nanocross, 2.3c790hn UltraverseRx) LEFT AT angioplasty ([id number] Nanocross, 2.1i505rj UltraverseRx) LEFT DP angioplasty ([id number] Nanocross, 2.5s320ou UltraverseRx) RIGHT SEWING SUPERVISOR closure (Angioseal) 09/07/24 Dr Marcano Procedure/CPT?? Codes: RIGHT SEWING SUPERVISOR access - ultrasound guided Aortogram with LEFT lower extremity run-off LEFT Pr AVF embolization RIGHT SEWING SUPERVISOR closure 09/09/24 moved to ICU overnight with [...] developed generalized weakness with hematuria with chronic De [place] Santos catheter, worsening redness to the left lower leg and empiric antibiotics reinitiated with daptomycin/Zosyn. Subsequent adjustment to daptomycin/Merrem with concern for mixed culture including ESBL species per microbiology 06/11/25 finished antibiotics as inpatient for UTI and cellulitis Readmitted on June 25, 2025 with reports of increased redness/drainage at the left foot, diarrhea and hematuria with concerns for recurrent UTI, C. Difficile PCR positivity (toxin neg) and left lower extremity infection. Patient reports De Los Santos catheter change in its entirety since readmission. room air; left lower extremity pain which is dull at present, worse with manipulation, generally better with pain meds and 2 out of 10 in severity. Redness and swelling better Chronic De [place] Santos catheter No fevers chills or sweats. No headache photophobia or neck stiffness. No shortness of breath coughor hemoptysis. no flank pain. no hemodynamic stable per [...] fusion C3-4; Surgeon: Tyree Tan MD; Location: [facility]; Service: Neurosurgery; Laterality: Bilateral; AORTOGRAM N/A [...] ASSISTED CLOSURE; Surgeon: Cecil Buenrostro Jr., MD;Location: [facility]; Service: Orthopedics; Laterality: Left; INCISION AND DRAINAGE LEG Left 07/25/2023 Procedure: INCISION AND DRAINAGE HEEL, WOUND VAC; Surgeon: Cecil Buenrostro Jr., MD; Location: [facility]; Service: Orthopedics; Laterality: Left; INTERVENTIONAL RADIOLOGY PROCEDURE N/A 05/02/2019 Procedure: IVC FILTER PLACEMENT; Surgeon: Pedro Zapien MD; Location: [facility]; Service: Interventional Radiology INTERVENTIONAL RADIOLOGY PROCEDURE Left 09/07/2024 Procedure: LEFT peroneal arteriovenous fistula embolization - Right femoral access; Surgeon: Jared Marcano MD; Location: [facility]; Service: Cardiovascular; Laterality: Left; Please coordinate with Gautam Patel ([facility]) [phone] who will bring coils LUMBAR DISCECTOMY N/A 05/03/2019 Procedure: THORACIC LAMINECTOMY T11-12; Surgeon: Tyree Tan MD; Location: [facility]; Service: Neurosurgery Pediatric History Patient Parents Not on file Other Topics Concern Not on file Social History Narrative Not on file family history includes Alcohol abuse in his father. Allergies[1] Medication: Current Medications[2] Antibiotics: Anti-Infectives (From admission, onward) Ordered Dose/Rate Route Frequency Start Stop 06/26/25 08 vancomycin (VANCOCIN) capsule 125 mg Ordering Provider: Duglas Andres MD Placed in Followed by Linked Group 125 mg Oral Weekly 08/01/25 0900 09/19/25 0859 06/26/25 0831 vancomycin (VANCOCIN) capsule 125 mg Ordering Provider: Duglas Andres MD Placed in Followed by Linked Group 125 mg Oral Daily 07/25/25 0900 08/01/25 0859 06/26/25 0831 vancomycin (VANCOCIN) capsule 125 mg Ordering Provider: Duglas Andres MD Placed in Followed by Linked Group 125 mg Oral 2 Times Daily 07/17/25 2100 07/24/25205806/26/25 0831 vancomycin (VANCOCIN) capsule 125 mg Ordering Provider: Duglas Andres MD Placed in Followed by Linked Group 125 mg Oral 3 Times Daily 07/10/25 1600 07/17/25 1559 06/25/25 2312 DAPTOmycin (CUBICIN) 550 mg in sodium chloride 0.9 % 50 mL IVPB Ordering Provider: Amanda Bermudez MD 6 mg/kg ?? 94.6 kg (Adjusted) 100 mL/hr over 30 Minutes Intravenous Every 24 Hours 06/26/25 2100 07/01/25 2059 06/25/25 2303 piperacillin-tazobactam (ZOSYN) 4.5 g IVPB in 100 mL NS MBP (CD) Ordering Provider: Amanda Bermudez MD 4.5 g over 4 Hours Intravenous Every 8 Hours 06/26/25 1200 07/01/25 1159 06/26/25 0831 vancomycin (VANCOCIN) capsule 125 mg Ordering Provider: Duglas Andres MD Placed in [facility] 125 mg Oral 4 Times Daily 06/26/25 1200 07/10/25 1159 06/26/25 0113 methenamine (HIPREX) tablet 1 g Ordering Provider: Amanda Bermudez MD 1 g Oral 2 Times Daily With Meals 06/26/25 0800 06/25/25 230 piperacillin-tazobactam (ZOSYN) 3.375 g IVPB in 100 mL NS MBP (CD) Status: Discontinued Ordering Provider: Amanda Bermudez MD 3.375 g over 30 Minutes Intravenous Once 06/26/25 0600 06/25/25 2312 06/25/25 2312 piperacillin-tazobactam (ZOSYN) 4.5 g IVPB in 100 mL NS MBP (CD) Ordering Provider: Amanda Bermudez MD 4.5 g over 30 Minutes Intravenous Once 06/26/25 0600 06/26/25 0600 06/25/25 211 DAPTOmycin (CUBICIN) 550 mg in sodium chloride 0.9 % 50 mL IVPB Ordering Provider: Ally Jeffers APRN 6 mg/kg ?? 94.6 kg (Adjusted) 100 mL/hr over 30 Minutes Intravenous Once 06/25/258 06/25/25 2307 06/25/25 2112 meropenem (MERREM) 1,000 mg in sodium chloride 0.9 % 100 mL MBP Ordering Provider: Mccracken, Ally V, DIABETES NURSE 1,000 mg over 30 Minutes Intravenous Once 06/25/25212706/25/252236 Review of Systems Constitutional-- No Fever, chills or sweats. Appetite good, and no malaise. No fatigue. Heent-- No new vision, hearing or throat complaints. No epistaxis or oral sores. Denies odynophagiaor dysphagia. No flashers, floaters or eye pain. No odynophagia or dysphagia. No headache, photophobia or neck stiffness. CV-- No chest pain, palpitation or syncope Resp-- No SOB/cough/Hemoptysis GI- No hematochezia, melena, or hematemesis. Denies jaundice or chronic liver disease. -- chronic De Los Santos catheter, denies flank pain Lymph- no swollen lymph nodes in neck/axilla or groin. Heme- No active bruising or bleeding; no Hx of DVT or PE. MS-- no swelling or pain in the bones or joints of arms/legs. No new back pain. Neuro-- No acute focal weakness or numbness in the arms or legs. Chronically debilitated Full 12 point review of systems reviewed and negative otherwise for acute complaints, except for above Physical Exam: Vital Signs BP 124/82 (BP Location: Left arm, Patient Position: Lying) Pulse 89 Temp 97.9 ??F (36.6 ??C) (Oral) Resp 16 Ht 182.9 cm (72 ) Wt 114 kg (251 lb 5.2 oz) SpO2 90% BMI 34.09 kg/m?? GENERAL: Awake and alert, in no acute distress. Chronically ill HEENT: Normocephalic, atraumatic. PERRL. EOMI. No conjunctival [...] mass or HSM. EXT: see below : Genitalia generally unremarkable. With De Los Santos catheter. MSK: FROM without joint effusions noted arms/legs. SKIN: Warm and dry without cutaneous eruptions on Inspection/palpation. NEURO: Oriented to PPT. He has difficult time cooperate with a detailed motor/sensory exam Left foot amputation noted with wounds and adherent slough type material but unable to express any purulence and depth unclear. No probed to bone at present. Vague erythema from mid burrell to foot withsome white scale but no discrete mass bulge or fluctuance. No crepitus or bulla Right side amputation no obvious open wound or new redness/induration Laboratory Data Results from last 7 days Lab Units 06/25/25 181 WBC 10*3/mm3 9.96 HEMOGLOBIN g/dL 8.9* HEMATOCRIT % 29.8* PLATELETS 10*3/mm3 281 Results from last 7 days Lab Units 06/25/251816 SODIUM mmol/L 138 POTASSIUM mmol/L 4.4 CHLORIDE mmol/L 106 CO2 mmol/L 21.2* BUN mg/dL 27.3* CREATININE mg/dL 1.21 GLUCOSE mg/dL 173* CALCIUM mg/dL 8.3* Results from last 7 days Lab Units 06/25/25 1817 ALK PHOS U/L 127* BILIRUBIN mg/dL 0.2 ALT (SGPT) U/L 14 AST (SGOT) U/L 15 Results from last 7 days Lab Units 06/25/251816 CRP mg/dL 4.34* Estimated Creatinine Clearance: 73 mL/min (by C-G formula based on SCr of 1.21 mg/dL). Microbiology: Radiology: Imaging Results (Last 72 Hours) Procedure Component Value Units Date/Time CT Angiogram Lower Extremity Left [[id number]] Collected: 06/26/25 0500 Updated: 06/26/25510 Narrative: CT ANGIOGRAM LOWER EXTREMITY LEFT Date of Exam: 06/26/2025 4:18 AM EDT Indication: Left leg limb ischemia. Comparison: Correlation with CT abdomen and pelvis 06/25/2025. Technique: CTA of the left lower extremity was performed before and after the uneventful intravenous administration of iodinated contrast. Reconstructed coronal and sagittal images were also obtained. In addition, a 3-D volume rendered image was created for interpretation. Automated exposure control and iterative reconstruction methods were used. Findings: CT angiography: There is moderate disease in the visualized aorta above the bifurcation. There is mild nonstenosing disease in the common iliac arteries. There is mild nonstenosing disease in the external iliac arteries and similar mild disease present in the internal iliac arteries. Right lower extremity: Patient is status post gyubp-bjk-udoy amputation. There is mild disease in the SEWING SUPERVISOR and SFA. The PFA is occluded proximally with reconstitution. There is moderate segmental stenosing disease in the remainder of the SFA. Left lower extremity: Minimal SEWING SUPERVISOR disease. PFA is patent. There is mild SFA disease with moderate focal narrowing at the junction of the SFA and popliteal artery. The jsinq-pmu-hsbo popliteal artery appears otherwise widely patent. There is mild below the knee popliteal artery disease. There appears to be embolization of the peroneal artery. Patency of the anterior and posterior tibial arteries is difficult to assess due to significant venous contamination and heavy calcification. Definite runoff into the left foot is seen in the posterior tibial artery. 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 Nonvascular findings: There is severe diffuse atrophy in the left lower extremity musculature particularly below the knee. The bones are markedly demineralized in the left foreleg. There is muscular atrophy in the right thigh. There is a moderate sized fat and sigmoid colon containing left inguinalhernia and a small fat-containing right inguinal hernia. There is marked urinary bladder wall thickening. IVC filter is partially seen and discussed on previous reports. The appendix is normal. Thereis no pelvic ascites. No acute osseous abnormality. There are moderate to severe lower lumbar degenerative changes. Impression: Impression: 1.There is mild disease in the left lower extremity with moderate focal narrowing at the junction of the SFA and popliteal artery. There appears to be embolization of the left left peroneal artery. Patency of the anterior and posterior tibial arteries is difficult to assess due to significant venous contamination and heavy calcification. Definite runoff into the left foot is seen in the posterior tibial artery. 2.Status post right uculn-awx-trlu amputation. There is occlusion of the proximal right PFA with reconstitution. 3.Severe diffuse atrophy in the left lower extremity musculature. 4.Moderate sized fat and sigmoid colon containing left inguinal hernia and small fat-containing right inguinal hernia. 5.Marked urinary bladder wall thickening. Correlate for cystitis. Electronically Signed: Hussain Lyles MD 06/26/2025 5:08 AM EDT Workstation ID: [id number] XR Chest 1 View [[id number]] Collected: 10/14/25 0412 Updated: 06/26/25415 Narrative: XR CHEST 1 VW Date of Exam: 06/26/2025 3:07 AM EDT Indication: cough. Comparison: 06/02/2025 Findings: Cardiomegaly is stable. Pulmonary vascularity is normal. There is atherosclerotic disease in the aorta. Mild right basilar atelectasis may be present. Lungs are otherwise clear. No pneumothorax. There is degenerative disease in the shoulders. Impression: Cardiomegaly with possible mild right basilar atelectasis. Electronically Signed: Brent Lubin MD 06/26/2025 4:13 AM EDT Workstation ID: [id number] CT Abdomen Pelvis With Contrast [[id number]] Collected: 06/25/251937 Updated: 06/25/252155 Addenda: ADDENDUM #1 IVC filter is present on imaging study. It is recommended that all patients with IVC filters in place have an active management care plan to monitor their IVC filter. If a care plan is not in place, patient should have a non emergent referral to an interventional specialist such as interventional radiology or other interventional vascular specialist for establishment of an IVC filter management care plan. Electronically Signed: Nehemias Ferraro 06/25/2025 9:53 PM EDT Workstation ID: [id number] ORIGINAL REPORT: CT ABDOMEN PELVIS W CONTRAST Date of Exam: 06/25/2025 7:05 PM EDT Indication: Diarrhea, hematuria, abdominal discomfort. Comparison: 06/02/2025 Technique: Axial CT images were obtained of the abdomen and pelvis following the uneventful intravenous administration of iodinated contrast. Reconstructed coronal and sagittal images were also obtained. Automated exposure control and iterative construction methods were used. Findings: Calcific atherosclerosis of the coronary arteries. No pleural or pericardial effusion. No suspicious infiltrate in the lower lungs. No definite ectopic bowel gas. No splenomegaly or suspicious splenic lesion. No suspicious hepatic abnormality. No definite acute biliary abnormality. No suspicious splenic or pancreatic abnormality. Aorta appears normal in caliber. There is calcific atherosclerosis of the aorta and branch vessels. IVC filter is present, as before. Lymph nodes do not appear significantly enlarged. Probable small bilateral upper pole renal cysts. There is expected excretion of contrast from the kidneys. No hydronephrosis. No dilated small bowel loops. No definite acute gastric abnormality. Small fat-containing umbilical hernia. There are bilateral inguinal hernias. Smaller right inguinal hernia contains fat. Larger left inguinal hernia contains a partial loop of sigmoid colon. No proximal dilatation. The appendix appears within normal limits. No definite findings of acute colonic inflammation. The bladder is moderately distended. Small amount of gas is present in the bladder, as before. Bladder wall thickening appears mildly decreased since the prior exam. Prostate does not appear significantly enlarged. De Los Santos catheter balloon and tip appears to terminate in the proximal penile urethra. There is some questionable wall thickening of the distal rectum. No other definite perirectal abnormality. There appears to be mild asymmetric prominence of the left inguinal lymph nodes. Severe left and moderate right hip osteoarthritis. Advanced degenerative changes in the lumbar spine. Mild chronic T11 and T12 height loss, as before. There is ankylosis at the sacroiliac joints. No visualized aggressive osseous lesion. Impression: 1.De Los Santos catheter balloon and tip appear to terminate in the proximal penile urethra. Recommend repositioning. 2.Moderate distention of the bladder with small amount of gas in the bladder, as before. Bladder wall thickening appears mildly decreased since the prior exam. Correlate with urinalysis. 3.Questionable wall thickening of the distal rectum. Correlate for symptoms of proctitis. 4.Bilateral inguinal hernias, larger on the left containing a partial loop of sigmoid colon. No proximal dilatation. 5.Mild asymmetric prominence of the left inguinal lymph nodes, likely reactive. Clinical follow-up recommended. 6.Calcific atherosclerosis. The ordering provider was notified of the results by Dr. Ferraro at 06/25/2025 7:54 PM EDT. Electronically Signed: Nehemias Ferraro 06/25/2025 7:55 PM EDT Workstation ID: [id number] Signed: 06/25/252152 by Nehemias Ferraro MD Narrative: CT ABDOMEN PELVIS W CONTRAST Date of Exam: 06/25/2025 7:05 PM EDT Indication: Diarrhea, hematuria, abdominal discomfort. Comparison: 06/02/2025 Technique: Axial CT images were obtained of the abdomen and pelvis following the uneventful intravenous administration of iodinated contrast. Reconstructed coronal and sagittal images were also obtained. Automated exposure control and iterative construction methods were used. Findings: Calcific atherosclerosis of the coronary arteries. No pleural or pericardial effusion. No suspicious infiltrate in the lower lungs. No definite ectopic bowel gas. No splenomegaly or suspicious splenic lesion. No suspicious hepatic abnormality. No definite acute biliary abnormality. No suspicious splenic or pancreatic abnormality. Aorta appears normal in caliber. There is calcific atherosclerosis of the aorta and branch vessels. IVC filter is present, as before. Lymph nodes do not appear significantly enlarged. Probable small bilateral upper pole renal cysts. There is expected excretion of contrast from the kidneys. No hydronephrosis. No dilated small bowel loops. No definite acute gastric abnormality. Small fat-containing umbilical hernia. There are bilateral inguinal hernias. Smaller right inguinal hernia contains fat. Larger left inguinal hernia contains a partial loop of sigmoid colon. No proximal dilatation. The appendix appears within normal limits. No definite findings of acute colonic inflammation. The bladder is moderately distended. Small amount of gas is present in the bladder, as before. Bladder wall thickening appears mildly decreased since the prior exam. Prostate does not appear significantly enlarged. De Los Santos catheter balloon and tip appears to terminate in the proximal penile urethra. There is some questionable wall thickening of the distal rectum. No other definite perirectal abnormality. There appears to be mild asymmetric prominence of the left inguinal lymph nodes. Severe left and moderate right hip osteoarthritis. Advanced degenerative changes in the lumbar spine. Mild chronic T11 and T12 height loss, as before. There is ankylosis at the sacroiliac joints. No visualized aggressive osseous lesion. Impression: Impression: 1.De Los Santos catheter balloon and tip appear to terminate in the proximal penile urethra. Recommend repositioning. 2.Moderate distention of the bladder with small amount of gas in the bladder, as before. Bladder wall thickening appears mildly decreased since the prior exam. Correlate with urinalysis. 3.Questionable wall thickening of the distal rectum. Correlate for symptoms of proctitis. 4.Bilateral inguinal hernias, larger on the left containing a partial loop of sigmoid colon. No proximal dilatation. 5.Mild asymmetric prominence of the left inguinal lymph nodes, likely reactive. Clinical follow-up recommended. 6.Calcific atherosclerosis. The ordering provider was notified of the results by Dr. Ferraro at 06/25/2025 7:54 PM EDT. Electronically Signed: Nehemias Ferraro 06/25/2025 7:55 PM EDT Workstation ID: [id number] XR Foot 3+ View Left [[id number]] Collected: 06/25/251858 Updated: 06/25/251905 Narrative: XR FOOT 3+ VW LEFT Date of Exam: 06/25/2025 6:15 PM EDT Indication: diabetic ulcer. Comparison: August 2024 Findings: Bones are grossly osteopenic. There is marked soft tissue swelling overlying dorsum of the foot andat the stump distal to the metatarsal ray resection sites. There is shallow soft tissue ulceration at the dorsum of the foot distally. 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 There is dense vascular calcification noted. Impression: Impression: Marked soft tissue swelling at the stump and dorsum of the foot suggest cellulitis.. Small shallow soft tissue ulceration distal dorsum of the foot No acute osseous abnormality. If there is concern for osteomyelitis MRI is recommended. Electronically Signed: Duglas Lay MD 06/25/2025 7:03 PM EDT Workstation ID: [id number] Impression: --acute left lower leg/foot cellulitis and wound infection, prior culture July 2024 with ESBL Klebsiella pneumoniae and pseudomonas aeruginosa, pseudomonas was sensitive to Merrem per microbiology lab at [facility]. Cx at [facility] as below; He has had multiple surgeries and multiple p ractitioners recommend higher level amputation which he has refused. On prior admissions, he has refused outpatient IV antibiotics and he has refused placement for longer durations of IV antibiotics.This refusal of care has placed him at increased risk for poor outcome. Earlier in 2024 he was discharged to the care of Dr. Oneal, his outpatient ID doctor and Dr Faust his automobile travel club counselor for furthercare/workup ; readmission May 2025 and June 2025 with acute worsening in redness/drainage to left lower extremity. High risk for further serious morbidity and other serious sequela includingpersistent/recurrent or nonhealing wounds, persistent/progressive or recurrent infection and risk for further functional/limb loss, higher-level amputation and other dire consequences including sepsis/mortalityetc. he remains opposed to amputation; he voices understanding his poor prognosis overallincluding risks for dire consequences; past Cx with MRSA/PSA/ESBL at prior admissions; culture June 02, 2025 with Proteus/MRSA/PSA; Cx June 2025 pending; further imaging pending --Acute hematuria/UTI with chronic indwelling De Los Santos catheter. nursing reports De Los Santos catheter has been changed since admission; urology evaluation for further consideration of cystoscopy versus SP catheter or other; urine microscopic with yeast and potential for yeast colonization/contaminant but also potential for evolving invasive candidiasis. Follow-up on culture data, blood catheter has been changed as above and empiric antibiotics. Mycamine IV ??1 06/26 --Acute diarrhea, C. Difficile PCR positivity although toxin antigen negative. He has risk for active disease and does have symptomatology and requires antibiotics for other processes, and therefore oral vancomycin added although unable to definitively confirm active disease with toxin antigen negative ( although risk for false negative); I discussed the risk and complexity of CDiff colitis with the patient/family. They understand the importance of hand hygiene with soap and water. They know the importance of bleach containing cleaning solutions for solid surfaces and risk to contact. They know to avoid anti motility agents such as lomotil/immodium and similar agents. They know antibiotics are not a guarantee for cure and there will be a risk for relapse/persistence of disease. I have referred them to CDC.gov for additional information as they see fit. --Peripheral arterial disease by past evaluation of vascular team in addition to history DVT. 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 Managed infection control protocol. Duglas Andres MD 06/26/2025 [1] Allergies Allergen Reactions Keppra [Levetiracetam] Other (See Comments) Acute psychosis Bupropion Unknown (See Comments) Codeine Nausea Only Hydrocodone Unknown (See Comments) Ketorolac Tromethamine Unknown (See Comments) [2] Current Facility-Administered Medications Medication Dose Route Frequency Provider Last Rate Last Admin acetaminophen (TYLENOL) tablet 650 mg 650 mg Oral Q4H PRN Amanda Bermudez MD 650 mg at 06/26/25 0225 Or acetaminophen (TYLENOL) 160 MG/5ML oral solution 650 mg 650 mg Oral Q4H PRN Amanda Bermudez MD Or acetaminophen (TYLENOL) suppository 650 mg 650 mg Rectal Q4H PRN Amanda Bermudez MD aluminum-magnesium hydroxide-simethicone (MAALOX MAX) 400-400-40 MG/5ML suspension 15 mL 15 mL [id number] PRN Amanda Bermudez MD [Held by provider] apixaban (ELIQUIS) tablet 5 mg 5 mg Oral BID Amanda Bermudez MD ascorbic acid (VITAMIN C) tablet 500 mg 500 mg Oral Daily Amanda Bermudez MD baclofen (LIORESAL) tablet 10 mg 10 mg Oral Q12H Amanda Bermudez MD 10 mg at 06/26/25 0226 sennosides-docusate (PERICOLACE) 8.6-50 MG per tablet 2 tablet 2 tablet Oral BID PRN Amanda Bermudez MD And polyethylene glycol (MIRALAX) packet 17 g 17 g Oral Daily PRN Amanda Bermudez MD And bisacodyl (DULCOLAX) EC tablet 5 mg 5 mg Oral Daily PRN Amanda Bermudez MD And bisacodyl (DULCOLAX) suppository 10 mg 10 mg Rectal Daily PRN Amanda Bermudez MD Calcium Replacement - Follow Nurse / BPA Driven Protocol Not Applicable PRN Amanda Bermudez MD carvedilol (COREG) tablet 3.125 mg 3.125 mg Oral BID With Meals Amanda Bermudez MD clopidogrel (PLAVIX) tablet 75 mg 75 mg Oral Daily Amanda Bermudez MD DAPTOmycin (CUBICIN) 550 mg in sodium chloride 0.9 % 50 mL IVPB 6 mg/kg (Adjusted) Intravenous F99SDavallAmanda marcus MD finasteride (PROSCAR) tablet 5 mg 5 mg Oral Daily Amanda Bermudez MD folic acid (FOLVITE) tablet 1 mg 1 mg Oral Daily Amanda Bermudez MD gabapentin (NEURONTIN) capsule 200 mg 200 mg Oral Q8H Amanda Bermudez MD 200 mg at 06/26/25 0529 insulin glargine (LANTUS, SEMGLEE) injection 56 Units 56 Units Subcutaneous Nightly Amanda Bermudez MD ipratropium-albuterol (DUO-NEB) nebulizer solution 3 mL 3 mL Nebulization Q6H PRN Amanda Bermudez MD lamoTRIgine (LaMICtal) tablet 100 mg 100 mg Oral Daily Amanda Bermudez MD lamoTRIgine (LaMICtal) tablet 250 mg 250 mg Oral Nightly Amanda Bermudez MD 250 mg at 06/26/25 0225 Magnesium Cardiology Dose Replacement - Follow Nurse / BPA Driven Protocol Not Applicable PRN Amanda Bermudez MD methenamine (HIPREX) tablet 1 g 1 g Oral BID With Meals Amanda Bermudez MD morphine injection 2 mg 2 mg Intravenous Q4H PRN Amanda Bermudez MD 2 mg at 06/26/25 0539 And naloxone (NARCAN) injection 0.4 mg 0.4 mg Intravenous Q5 Min PRN Amanda Bermudez MD multivitamin with minerals 1 tablet 1 tablet Oral Daily Amanda Bermudez MD nitroglycerin (NITROSTAT) SL tablet 0.4 mg 0.4 mg Sublingual Q5 Min PRN Amanda Bermudez MD ondansetron (ZOFRAN) injection 4 mg 4 mg Intravenous Q6H PRN Amanda Bermudez MD pantoprazole (PROTONIX) EC tablet 40 mg 40 mg Oral BID Amanda Bermudez MD Pharmacy Consult Not Applicable Continuous PRN Duglas Andres MD Pharmacy Consult Not Applicable Continuous PRN Duglas Andres MD Phosphorus Replacement - Follow Nurse / BPA Driven Protocol Not Applicable PRN Amanda Bermudez MD piperacillin-tazobactam (ZOSYN) 4.5 g IVPB in 100 mL NS MBP (CD) 4.5 g Intravenous Q8H Amanda Bermudez MD Potassium Replacement - Follow Nurse / BPA Driven Protocol Not Applicable PRN Amanda Bermudez MD sacubitril-valsartan (ENTRESTO) 24-26 MG tablet 1 tablet 1 tablet Oral BID Amanda Bermudez MD sodium chloride 0.9 % flush 10 mL 10 mL Intravenous PRN ZeyadAlly V, DIABETES NURSE sodium chloride 0.9 % flush 10 mL 10 mL Intravenous Q12H Amanda Bermudez MD 10 mL at 06/26/25 0059 sodium chloride 0.9 % flush 10 mL 10 mL Intravenous PRN Amanda Bermudez MD sodium chloride 0.9 % infusion 75 mL/hr Intravenous Continuous Amanda Bermudez MD 75 mL/hr at 06/26/25 0626 75 mL/hr at 06/26/25 0626 vancomycin (VANCOCIN) capsule 125 mg 125 mg Oral 4x Daily Duglas Andres MD Followed by [START ON 07/10/2025] vancomycin (VANCOCIN) capsule 125 mg 125 mg Oral TID Duglas Andres MD Followed by [START ON 07/17/2025] vancomycin (VANCOCIN) capsule 125 mg 125 mg Oral BID Duglas Andres MD Followed by [START ON 07/25/2025] vancomycin (VANCOCIN) capsule 125 mg 125 mg Oral Daily Duglas Andres MD Followed by [START ON 08/01/2025] vancomycin (VANCOCIN) capsule 125 mg 125 mg Oral Weekly Duglas Andres MD documented in this encounter Nursing Notes * Sim Dale RN - 08/02/2025 9:32 AM EST Goal Outcome Evaluation:VSS on RA. Ok to dc home today. EMS to transport pt left unit at 14:12 * Juliet Silverio RN - 08/02/2025 6:18 AM EST Goal Outcome Evaluation: Plan of Care Reviewed With: patient Progress: no change Outcome Evaluation: Pt RA and non-tele, unable to D/C this shift due to delay in EMS transport, no c/o pain, pt slept well this shift, will cont. POC * Sallie Burt LCSW - 08/01/2025 9:09 PM EST Problem: Palliative Care Goal: Enhanced Quality of Life Intervention: Optimize Psychosocial Wellbeing Recent Flowsheet Documentation Taken 08/01/2025 1256 by Sallie Burt LCSW Supportive Measures: active listening utilized positive reinforcement provided verbalization of feelings encouraged Visit with patient at bedside, review of chart and d/w CM. Plan is home with HH and waiver services. CM notified neighbor of patient d/c - she will notify patient's sister. No community palliative care in patient's county of residence. Patient is choosing HH at this time and declines hospice. * Carolynn Leyva RN - 07/31/2025 5:47 PM EST Goal Outcome Evaluation: Outcome Evaluation: Pt on RA, non-tele. VSS. Complaints of L leg pain imporved with scheduled pain meds. No SOA or N/V. No acute changes this shift, will continue with POC. * Norma Kramer RN - 07/30/2025 3:56 PM EST Goal Outcome Evaluation: Pt denies pain, nausea, vomiting. Tolerating PO intake well. Pt had 1 large BM this afternoon. Resting in bed. Denies any needs at this time. * Sallie Burt LCSW - 07/30/2025 2:10 PM EST Problem: Palliative Care Goal: Enhanced Quality of Life Intervention: Optimize Psychosocial Wellbeing Recent Flowsheet Documentation Taken 07/30/2025 1410 by Sallie Burt LCSW Supportive Measures: (symptom assessment) active listening utilized decision-making supported positive reinforcement provided self-care encouraged verbalization of feelings encouraged Visit with patient at bedside, patient engaging and conversant, joking. Patient reports mild nausea- nagging feeling, pain 7/10 at time of visit, eating well. Awaiting placement. Palliative Care continues to follow for support and assist with plan of care. * Norma Kramer RN - 07/29/2025 4:00 PM EST Goal Outcome Evaluation: Pain controlled. Denies nausea, vomiting. Tolerating PO intake well. Pt had 1 BM this shift. Resting in bed. Denies any needs at this time. * Talat Medina RN - 07/28/2025 5:56 PM EST Goal Outcome Evaluation: Plan of Care Reviewed With: patient * Duglas Mayes, PT - 07/27/2025 2:45 PM EST Goal Outcome Evaluation: Plan of Care Reviewed With: patient Outcome Evaluation: foot and heel wound dressings changed with good improvement noted overall. mildreepithelialization of wound edges noted today with dressin change. PT will cont with mepilex Ag foam changes every 3-4 days to help further improve healing potential, while limiting discomfort. * Darby Hickey RN - 07/27/2025 11:10 AM EST Goal Outcome Evaluation: Inpatient Palliative RN visit to bedside. Pt sitting up in bed, eating a sandwich. Pt's sister and friend at bedside. Pt appears to be in good spirits and is joking with this nurse and his visitors. Pt's sister Zhane states pt is still confused today. Zhane also reports that pt just received Oxycodone not too long ago. Pt rates his back pain at 8/10. He states he just can't get comfortable. Provided pt with moisturizer for itching on his forearm per sister's request. Palliative will continue to follow. 929 Palliative IDT meeting: IZABELLA MURILLO, RNs, MDIV, CHIEF LIBRARIAN BRANCH Inpatient Palliative Team office ([phone]) hours M-F 8a-4:30pm. After hours, weekends and holidays, contact Palliative Provider by calling [phone]. Problem: Palliative Care Goal: Enhanced Quality of Life Outcome: Progressing * Honey Jimenez RN - 07/27/2025 5:27 AM EST Goal Outcome Evaluation: Plan of Care Reviewed With: patient Progress: no change Outcome Evaluation: Slept most of the night. Pt A/Ox4, pleasant and cooperative. No acute distress noted.Pain controlled with scheduled meds. Kept warm and comfortable. Needs anticipated and attended. * Darby Hickey RN - 07/26/2025 10:15 AM EST Goal Outcome Evaluation: Inpatient Palliative RN visit to bedside. Pt sitting up in bed, watching TV. Pleasant. Pt states he's feeling ok but does report 9/10 pain on LLE. Bedside RN Sim aware and states pt has a scheduled Oxy for patient. Having regular bowel movements. Sim states pt has been clearer and pleasant today. Currently Comfort Measures and plan is LTC with Hospice. Palliative will continue to follow. 929 Palliative IDT meeting: IZABELLA MURILLO, RNs, [facility] Inpatient Palliative Team office ([id number]) hours M-F 8a-4:30pm. After hours, weekends and holidays, contact Palliative Provider by calling [phone]. Problem: Palliative Care Goal: Enhanced Quality of Life Outcome: Progressing * Guerita Gustafson RN - 07/26/2025 5:00 AM EST Goal Outcome Evaluation: Progress: no change Outcome Evaluation: Pt on room air, non tele, A&O x 4. Restless but calm and cooperative all night. Refused some medications throughout the night. Good urine output. * Darby Hickey RN - 07/25/2025 11:15 AM EST Goal Outcome Evaluation: Inpatient Palliative RN visit to bedside. Pt's sister was at bedside with him who reports that he is quite confused today. Pt alert and awake, no longer in restraints, trying to use TV remote. Pt refused most symptoms but did state he has a little nausea. He reports his appetite is good, but per charting pt has not eaten much in the past 4 days. Discussed with bedside RN Sim who reports that pt and his sister spoke with Talisha and is now wanting Comfort Measures. Palliative will continue to follow. 929 Palliative IDT meeting: , DIABETES NURSE, RNs, [facility], CHIEF LIBRARIAN BRANCH Inpatient Palliative Team office ([id number]) hours M-F 8a-4:30pm. After hours, weekends and holidays, contact Palliative Provider by calling [phone]. Problem: Palliative Care Goal: Enhanced Quality of Life Outcome: Progressing * Duglas Mayes, PT - 07/25/2025 10:00 AM EST Goal Outcome Evaluation: Plan of Care Reviewed With: patient Outcome Evaluation: LLE unna boot removed and dressings recovered with mepilex Ag foam and secured with kerlix and spandage to help limit discomfort and maintain a healthy wound bed. * Mely Portillo RN - 07/25/2025 8:30 AM EST Reviewed chart in preparation for [facility] follow-up. Noted pt confused and agitated. Discussed pt with Palliative and determined a visit another day is advised. Recommend continuing same wound care orders for now. Please re-consult if gluteal wounds worsen prior to next visit. * Guerita Gustafson RN - 07/25/2025 5:58 AM EST Goal Outcome Evaluation: Outcome Evaluation: Pt on room air, non tele. Oriented to self, disoriented to situation, place andtime. Agitated, restless and irritable and fighting restraints. Redirection or reorientation unsuccessful. Refused all medications. IM Geodon given once. Pt is repeatedly hitting/rubbing arms and elbows on side of bed and causing open sores. Allevyns placed on open areas to prevent farther tearing.Seizure pads in place. Still managing to cause urethral trauma by constantly moving lower extremities, de los santos removed from statlock to try to prevent further bleeding. Good urine output. Goals of caremeeting today with family. * Iggy Concepcion RN - 07/24/2025 7:00 PM EST Goal Outcome Evaluation: Patient is Confused - Not oriented, Disoriented x4, refused meds this morning. He has been in Restraints all day, fighting the restraints (except after IM meds took effect) he was swinging his arms up and down and scraping his arms on the bed, he did rub a new skin tear in his right elbow but I placed a heel Allevyn on the area to protect it He has been quite out of it mentation chong throughout the day, significant decline compared to previous shifts I've had with him. Still on Room Air, still has good urinary output with the de los santos, there appears to be some urethral trauma and old blood where he may have pulled on his De Los Santos previously,cardiac chong he has been non-tele, but ECG this morning was NSR. Seen by Neuro/Hospice/Palliative today - there is a Goals of Care discussion with him tomorrow. Further med changes were made by neuro to see if it improves his mentation, he was sleeping and not fighting the restraints after dinnertime. Current Vitals are stable, will continue POC. * Darby Hickey RN - 07/24/2025 10:55 AM EST Goal Outcome Evaluation: Inpatient Palliative RN visit to bedside. Pt appeared to be sleeping comfortably. On RA, respirations even and unlabored, sats 89% . Per bedside RN Iggy, pt just received a dose of Geodon. Iggy reports that pt has been refusing to take medications, thinking that he is being poisoned. Pt also keeps on pulling at lines, causing him to miss doses of antibiotics. Pt has been on restraints since yesterday afternoon and gets so agitated that he has developed a skin tear on his right elbow/forearm area. Mepilex in place. Palliative will continue to follow. 929 Palliative IDT meeting: MD, DIABETES NURSE, RNs, [facility] Inpatient Palliative Team office ([id number]) hours M-F 8a-4:30pm. After hours, weekends and holidays, contact Palliative Provider by calling [phone]. Problem: Palliative Care Goal: Enhanced Quality of Life Outcome: Progressing * Jeff Purcell RN - 07/24/2025 2:02 AM EST Problem: Adult Inpatient Plan of Care Goal: Plan of Care Review Outcome: Progressing Goal: Patient-Specific Goal (Individualized) Outcome: Progressing Goal: Absence of Hospital-Acquired Illness or Injury Outcome: Progressing Intervention: Identify and Manage Fall Risk Recent Flowsheet Documentation Taken 07/24/2025 0000 by Jeff Purcell, RN Safety Promotion/Fall Prevention: assistive device/personal items within reach clutter free environment maintained fall prevention program maintained lighting adjusted nonskid shoes/slippers when out of bed room organization consistent safety round/check completed toileting scheduled Taken 07/23/2025 2000 by Jeff Purcell RN Safety Promotion/Fall Prevention: assistive device/personal items within reach clutter free environment maintained fall prevention program maintained lighting adjusted nonskid shoes/slippers when out of bed room organization consistent safety round/check completed toileting scheduled Intervention: Prevent Skin Injury Recent Flowsheet Documentation Taken 07/24/2025 0000 by Jeff Purcell RN Body Position: turned right Taken 07/23/20251999 by Jeff Purcell RN Body Position: supine heels elevated legs elevated Skin Protection: incontinence pads utilized silicone border foam - sacrum/coccyx skin sealant/moisture barrier applied Intervention: Prevent and Manage VTE (Venous Thromboembolism) Risk Recent Flowsheet Documentation Taken 07/23/20251999 by Jeff Purcell RN VTE Prevention/Management: (Eliquis) bilateral SCDs (sequential compression devices) off patient refused intervention Intervention: Prevent Infection Recent Flowsheet Documentation Taken 07/24/2025 0000 by Jeff Purcell RN Infection Prevention: environmental surveillance performed equipment surfaces disinfected hand hygiene promoted rest/sleep promoted single patient room provided Taken 07/23/20251999 by Jeff Purcell RN Infection Prevention: environmental surveillance performed equipment surfaces disinfected hand hygiene promoted rest/sleep promoted single patient room provided Goal: Optimal Comfort and Wellbeing Outcome: Progressing Intervention: Monitor Pain and Promote Comfort Recent Flowsheet Documentation Taken 07/23/2025 2350 by Jeff Purcell RN Pain Management Interventions: care clustered pain management plan reviewed with patient/caregiver pain medication given pillow support provided position adjusted quiet environment facilitated relaxation techniques promoted Taken 07/23/2025 2116 by Jeff Purcell RN Pain Management Interventions: care clustered pain management plan reviewed with patient/caregiver pain medication given pillow support provided position adjusted quiet environment facilitated relaxation techniques promoted Intervention: Provide Person-Centered Care Recent Flowsheet Documentation Taken 07/23/20251999 by Jeff Prucell RN Trust Relationship/Rapport: care explained choices provided emotional support provided empathic listening provided questions answered questions encouraged reassurance provided thoughts/feelings acknowledged Goal: Readiness for Transition of Care Outcome: Progressing Problem: Fall Injury Risk Goal: Absence of Fall and Fall-Related Injury Outcome: Progressing Intervention: Identify and Manage Contributors Recent Flowsheet Documentation Taken 07/24/2025 0000 by Jeff Purcell RN Medication Review/Management: medications reviewed Taken 07/23/20251999 by Jeff Purcell RN Medication Review/Management: medications reviewed Intervention: Promote Injury-Free Environment Recent Flowsheet Documentation Taken 07/24/2025 0000 by Jeff Purcell RN Safety Promotion/Fall Prevention: assistive device/personal items within reach clutter free environment maintained fall prevention program maintained lighting adjusted nonskid shoes/slippers when out of bed room organization consistent safety round/check completed toileting scheduled Taken 07/23/20251999 by Jeff Purcell RN Safety Promotion/Fall Prevention: assistive device/personal items within reach clutter free environment maintained fall prevention program maintained lighting adjusted nonskid shoes/slippers when out of bed room organization consistent safety round/check completed toileting scheduled Problem: Skin Injury Risk Increased Goal: Skin Health and Integrity Outcome: Progressing Intervention: Optimize Skin Protection Recent Flowsheet Documentation Taken 07/24/2025 by Jeff Purcell RN Activity Management: activity encouraged Head of Bed (HOB) Positioning: HOB at 30-45 degrees Taken 07/23/20251999 by Jeff Purcell RN Activity Management: activity encouraged Pressure Reduction Techniques: frequent weight shift encouraged heels elevated off bed weight shift assistance provided Head of Bed (HOB) Positioning: HOB at 30-45 degrees Pressure Reduction Devices: positioning supports utilized pressure-redistributing mattress utilized specialty bed utilized Skin Protection: incontinence pads utilized silicone border foam - sacrum/coccyx skin sealant/moisture barrier applied Problem: Sepsis/Septic Shock Goal: Optimal Coping Outcome: Progressing Intervention: Support Patient and Family Response Recent Flowsheet Documentation Taken 07/23/20251999 by Jeff Purcell RN Family/Support System Care: self-care encouraged support provided Goal: Absence of Bleeding Outcome: Progressing Goal: Blood Glucose Level Within Target Range Outcome: Progressing Intervention: Optimize Glycemic Control Recent Flowsheet Documentation Taken 07/23/20251999 by Jeff Purcell RN Hypoglycemia Management: blood glucose monitored Goal: Absence of Infection Signs and Symptoms Outcome: Progressing Intervention: Initiate Sepsis Management Recent Flowsheet Documentation Taken 07/24/2025 0000 by Jeff Purcell RN Infection Prevention: environmental surveillance performed equipment surfaces disinfected hand hygiene promoted rest/sleep promoted single patient room provided Isolation Precautions: precautions maintained contact spore Taken 07/23/20251999 by Jeff Purcell RN Infection Prevention: environmental surveillance performed equipment surfaces disinfected hand hygiene promoted rest/sleep promoted single patient room provided Isolation Precautions: precautions maintained contact spore Intervention: Promote Recovery Recent Flowsheet Documentation Taken 07/24/2025 0000 by Jeff Purcell RN Activity Management: activity encouraged Taken 07/23/20251999 by Jeff Purcell RN Activity Management: activity encouraged Sleep/Rest Enhancement: awakenings minimized relaxation techniques promoted regular sleep/rest pattern promoted Goal: Optimal Nutrition Delivery Outcome: Progressing Problem: Palliative Care Goal: Enhanced Quality of Life Outcome: Progressing Intervention: Maximize Comfort Recent Flowsheet Documentation Taken 07/23/2025 2350 by Jeff Purcell RN Pain Management Interventions: care clustered pain management plan reviewed with patient/caregiver pain medication given pillow support provided position adjusted quiet environment facilitated relaxation techniques promoted Taken 07/23/2025 2116 by Jeff Purcell RN Pain Management Interventions: care clustered pain management plan reviewed with patient/caregiver pain medication given pillow support provided position adjusted quiet environment facilitated relaxation techniques promoted Intervention: Optimize Function Recent Flowsheet Documentation Taken 07/23/20251999 by Jeff Purcell RN Sleep/Rest Enhancement: awakenings minimized relaxation techniques promoted regular sleep/rest pattern promoted Intervention: Optimize Psychosocial Wellbeing Recent Flowsheet Documentation Taken 07/23/20251999 by Jeff Purcell RN Family/Support System Care: self-care encouraged support provided Problem: Restraint, Nonviolent Goal: Absence of Harm or Injury Outcome: Progressing Intervention: Implement Least Restrictive Safety Strategies Recent Flowsheet Documentation Taken 07/24/2025 0200 by Jeff Purcell RN Cupola Mechanic Protection: IV pole/bag removed from visual field torso covered tubing secured Diversional Activities: television Taken 07/24/2025 0000 by Jeff Purcell RN Cupola Mechanic Protection: IV pole/bag removed from visual field torso covered tubing secured Diversional Activities: television Taken 07/23/2025 2200 by Jeff Purcell RN Cupola Mechanic Protection: IV pole/bag removed from visual field torso covered tubing secured Diversional Activities: television Taken 07/23/20251999 by Jeff Purcell RN Cupola Mechanic Protection: IV pole/bag removed from visual field torso covered tubing secured Diversional Activities: television Intervention: Protect Dignity, Rights and Personal Wellbeing Recent Flowsheet Documentation Taken 07/23/20251999 by Jeff Purcell RN Trust Relationship/Rapport: care explained choices provided emotional support provided empathic listening provided questions answered questions encouraged reassurance provided thoughts/feelings acknowledged Intervention: Protect Skin and Joint Integrity Recent Flowsheet Documentation Taken 07/24/2025 by Jeff Purcell RN Body Position: turned right Taken 07/23/20251999 by Jeff Purcell RN Body Position: supine heels elevated legs elevated Skin Protection: incontinence pads utilized silicone border foam - sacrum/coccyx skin sealant/moisture barrier applied Range of Motion: active ROM (range of motion) encouraged Goal Outcome Evaluation: * Gayatri Mcgarry RN - 07/23/2025 6:53 PM EST Goal Outcome Evaluation: Outcome Evaluation: VSS on room. refusing tele and IV. pt took his meds this morning after the conversation about why he needs to take his meds. placed IV but after noon pt was agiated, verbally and physically abusive to staff. pulled IV out. provider notified.given prn ativan X 1. pt remains confused. placed on 2 point soft restraint. no signs of compromised circulation/injury. * Darby Hickey RN - 07/23/2025 11:35 AM EST Goal Outcome Evaluation: Inpatient Palliative RN visit at bedside. Pt appeared to be comfortably sleeping, snoring. Respirations even and unlabored, sats 90% on RA. Noted that Neuro saw pt over the weekend for delirium. No restraints noted on pt at time of assessment. Palliative will continue to follow. 929 Palliative IDT meeting: AARON MURILLON, RNs, [facility] Inpatient Palliative Team office ([id number]) hours M-F 8a-4:30pm. After hours, weekends and holidays, contact Palliative Provider by calling [phone]. Problem: Palliative Care Goal: Enhanced Quality of Life Outcome: Progressing * Duglas Mayes, PT - 07/22/2025 12:00 PM EST Goal Outcome Evaluation: Plan of Care Reviewed With: patient Outcome Evaluation: Pt removed wound vac last night. PT presented to replace wound vac, but pt showing limited progress with vac to this point and pt having freq issues with confusion leading to vac dressing being removed. PT covered wounds with mepilex Ag foam and reapplied unna boot with kerlix to help improve skin integrity and healing potential while limiting pt's confusion / frustration withdressings. * Abril Espinoza RN - 07/22/2025 6:08 AM EST PCT and RN responded to bed alarm. Pt was becoming increasingly paranoid and agitated. Pt had removed wound vac. Pt had a bowel movement. RN and PCT cleaned up patient and completed a bed change. PRNgeodon given with relieve of pt aggression and overall demeanor. Wound vac site wrapped in krilex. RN will let day shift know to notify wound care. Pt resting in bed at this time * Abril Espinoza RN - 07/22/2025 4:06 AM EST Goal Outcome Evaluation: Plan of Care Reviewed With: patient Progress: improving Outcome Evaluation: pt continues to refuse IV placements, turns and assessments. RN educated pt on importance of IV medications and recieving ordered care in addition to risks associated with refusalpt continues to refuse. pt remains confused and agitated. refuses tele and pulse ox monitoring, provider aware. fall precautions in place. plan of care on going * Shital Costa RN - 07/21/2025 5:39 PM EST Goal Outcome Evaluation: Plan of Care Reviewed With: patient Progress: no change * Shital Costa RN - 07/20/2025 5:25 PM EST Goal Outcome Evaluation: Plan of Care Reviewed With: patient Progress: no change * Darby Hickey RN - 07/20/2025 12:00 PM EST Goal Outcome Evaluation: Inpatient Palliative RN visit to bedside. Pt was sitting up in bed, eating lunch. Respirations evenand unlabored. States his pain is 2/10 more soreness than pain. Pt currently not on monitors. No difficulties swallowing and seemed to be enjoying his meal. Plan is rehab pending facility acceptance.Palliative will continue to follow. 929 Palliative IDT meeting: AARON MURILLON, RNs Inpatient Palliative Team office ([id number]) hours M-F 8a-4:30pm. After hours, weekends and holidays, contact Palliative Provider by calling [phone]. Problem: Palliative Care Goal: Enhanced Quality of Life Outcome: Progressing * Duglas Mayes, PT - 07/20/2025 8:00 AM EST Goal Outcome Evaluation: Plan of Care Reviewed With: patient Outcome Evaluation: PT changed L foot wound vac. no significant change in wound measurements noted today, but skin integrity of LE significantly improved with use of unna boot. PT will cont with unnaboot changes every 2-3 days with wound vac changes. * Yanelis Thao RN - 07/20/2025 6:45 AM EST Goal Outcome Evaluation: Progress: declining Outcome Evaluation: Patient continues to have waxing/waning mental status. He was lethargic most ofthe night with intermittent periods of restlessness and has remained confused throughout the night.Vital signs are relatively stable; afebrile. Wound vac continues to left foot. Right gluteal wound is progressively worsening and patient often refuses care when needed. He expressed multiple times yesterday and last night of his desire to go home and . At this time, patient remains a full code and is unable to ethically make decisions for himself. A goals of care/code status discussion withhis sister would be beneficial so that patient's wishes may be followed. US guided IV placed at 0120 after previous IV infiltrated. Patient pulled out newly placed IV at 0530 and another US guided IVhad to be placed. Scheduled pain medications held at midnight due to lethargy, but 0600 dose was given. Chronic de los santos catheter remains in place with 1730 mL UOP overnight. * Yanelis Thao RN - 07/20/2025 1:20 AM EST Left AC IV infiltrated due to restlessness at 2323 and D/C'd. Charge nurse notified that patient would need an US guided IV placed. Charge nurse presented to patient's bedside at 0030 and was unsuccessful in placing IV with attempt x1. RN from another inpatient unit was asked to come attempt and successfully placed a right upper arm US guided IV with attempts x2. IV antibiotics were given at thistime and pharmacy re-timed subsequent doses. * Darby Hickey RN - 07/19/2025 3:10 PM EST Goal Outcome Evaluation: Inpatient Palliative RN visit to bedside. Pt was sitting on the side of the bed, facing the window and appeared to be doing some arm exercises. Pt denied pain at this time. He states that he feels better. But did report some soreness on bilat shoulders but attributes it to exercises. Pt on RA, respirations even and unlabored. Per chart, waiting for facility acceptance. Palliative will continue 929 Palliative IDT meeting: MD, DIABETES NURSE, RNs, MDIV, CHIEF LIBRARIAN BRANCH Inpatient Palliative Team office ([id number]) hours M-F 8a-4:30pm. After hours, weekends and holidays, contact Palliative Provider by calling [phone]. Problem: Palliative Care Goal: Enhanced Quality of Life Outcome: Progressing * Shyla Tarango, OT - 07/19/2025 2:22 PM EST Goal Outcome Evaluation: Plan of Care Reviewed With: patient Progress: no change Outcome Evaluation: Pt presents with deficits including decreased activity tolerance, balance deficits, generalized weakness, decreased UE ROM, and R AKA warranting continued IPOT services. Pt completed sitting at EOB with supervision-SBA for duration of session, engaged in UE ther ex, dynamic balance activity, and grooming task with no LOB. Rec d/c to SNF Anticipated Discharge Disposition (OT): intermediate facility * Maxine Webb RN - 07/18/2025 6:11 PM EST Problem: Adult Inpatient Plan of Care Goal: Plan of Care Review Outcome: Progressing Flowsheets (Taken 07/18/2025 1808) Progress: no change Outcome Evaluation: Informed this morning during report that patient refused to wear gambling monitor and refusal form signed. No acute events this shift. Patient remains on RA. LLE pain 7-910 today. Patient needs met throughout shift. Plan of Care Reviewed With: patient Goal Outcome Evaluation: Plan of Care Reviewed With: patient Progress: no change Outcome Evaluation: Informed this morning during report that patient refused to wear gambling monitor and refusal form signed. No acute events this shift. Patient remains on RA. LLE pain 7-9/10 today. Patient needs met throughout shift. * Lori Rajan - 07/18/2025 1:40 PM EST Goal Outcome Evaluation: Plan of Care Reviewed With: patient Progress: improving Outcome Evaluation: declined t/f to chair due to buttock soreness but very motivated to sit EOB andwork on functional movement, exercises Anticipated Discharge Disposition (PT): inpatient rehabilitation facility * Darby Hickey RN - 07/18/2025 11:35 AM EST Goal Outcome Evaluation: Inpatient Palliative RN visit to bedside. Pt sleeping in bed and appears to be comfortable. Respirations even and unlabored, sats 93% on RA. Noted in chart that pt now considering amputation for LLE.Palliative will continue to follow. 929 Palliative IDT meeting: MD, DIABETES NURSE, RNs, [facility]IV Inpatient Palliative Team office ([id number]) hours M-F 8a-4:30pm. After hours, weekends and holidays, contact Palliative Provider by calling [phone]. Problem: Palliative Care Goal: Enhanced Quality of Life Outcome: Progressing * Jada Diaz RN - 07/18/2025 6:33 AM EST Goal Outcome Evaluation: Pt alert and oriented. RA, NSR. VSS. Contact/spore precautions maintained. De Los Santos intact. Around 319, pt removed gambling monitor leads and pulse ox. Educated pt on importance of keeping monitoring devices in place while he's in the hospital, to which pt said I can make my own damn decisions . Thirty minutes later, PCT attempted to have pt allow her to repalce monitoring leads, to which pt continued to refused and fired PCT from his care. GROUP CONTROLLER made aware. Refusal of care form signed and placed on pt's chart. Bed alarm active and audible, bed in lowest position, call light within reach, and noother requests at this time. Care on-going. * Maxine Webb RN - 07/17/2025 6:39 PM EST Problem: Adult Inpatient Plan of Care Goal: Plan of Care Review Outcome: Progressing Flowsheets (Taken 07/17/2025 1837) Progress: no change Outcome Evaluation: Patient up in chair this shift. Wound vac and de los santos remain in place. Remains onRA and VSS. Patient waiting for SNF placement. Plan of Care Reviewed With: patient Goal Outcome Evaluation: Plan of Care Reviewed With: patient Progress: no change Outcome Evaluation: Patient up in chair this shift. Wound vac and de los santos remain in place. Remains onRA and VSS. Patient waiting for SNF placement. * Ivone Horan, OT - 07/17/2025 1:55 PM EST Goal Outcome Evaluation: Plan of Care Reviewed With: patient Progress: no change Outcome Evaluation: Re-cert complete. Pt continues to present below baseline with ADL performance and functional mobility. Dep lift x2 to chair. good effort with bed mobility. Continue IPOT POC. Anticipated Discharge Disposition (OT): intermediate facility * Mely Portillo RN - 07/17/2025 8:30 AM EST Images from the original note were not included. Reason for Wound, Ostomy and Continence (WOC) Nursing Consultation: Reassess current wounds. Coccyx wound is starting to tunnel. Patient Sitting up finishing breakfast. Family/support person not present. Wound Assessment Wound Type: MASD (Moisture associated skin damage) - Incontinence Associated Dermatitis (IAD) Location: sacrococcygeal, perineum, scrotum, bilateral posterior thighs Wound Bed: blanchable, moist, pink, red, and white Wound Edges: Rolled/Closed Periwound Skin: blanchable and pealing Drainage Characteristics/Odor: serosanguineous and yellow Drainage Amount: small Pain: Yes Care provided: Cleansed small amount of soft stool from anus, with pH balanced cleansing foam and green wipe, then cleansed entire area. Allowed to dry. [place] (purple color) applied to all areas except full-thickness wound on right gluteal. Mepilex Ag applied to this area. Covered with Allevyn. Sacral Allevyn then skin prep/barrier also applied to right ischium for protection. Offloaded sacrumand heel with [place] pillow. Notes: No tunneling noted, but area right coccyx/gluteal is full-thickness wound, mainly IAD but friction and pressure components certainly present. Mepilex Ag applied to open wound. Applied [place] other areas-no ointment should be applied to this until it is worn away in 1-3 days. Sacral Allevyn applied-pt states he is only having about one BM/day. Wound Image: Recommendation(s) for management of wound: -Refer to wound care orders for specific instructions on how to treat/manage wound. -Practice pressure injury prevention protocol. IF PATIENT REQUIRES MRI, REMOVE MEPILEX AG PRIOR. Most recent Red Scale score: Sensory Perception: 3-->slightly limited Moisture: 3-->occasionally moist Activity: 1-->bedfast Mobility: 2-->very limited Nutrition: 3-->adequate Friction and Shear: 1-->problem Red Score: 13 (07/17/25 0859) Specialty support surface: [facility] Will order pump to make CITLALY specialty bed. WOC CONSULTED FOR SPECIALTY BED-ISOTOUR PUMP [facility] ISOTOUR PUMP # 13 ordered for patient. Please implement pressure injury prevention protocol. Specialty beds do not replace turning/offloading. At discharge, please wipe down pump with appropriate cleaning wipes and notify database administration manager and Transport to have [facility] ISOTOUR PUMP returned to storage. Thank you. Pressure Injury Prevention Protocol (initiate for Red Score of 18 or less): *Turn q 2 hr, keep heels elevated and offloaded with offloading heel boots. *Allevn dressings to heels, sacrum/coccyx *Follow C.A.R.E protocol if medical devices (Bipap, de los santos, Ng tube, etc) are being used. *Reduce layers under patient (one sheet as drawsheet and two incontinence pads) to allow waffle or CITLALY to improve microclimate *Raise knee-gatch before elevating HOB to reduce shearing WOC Team will continue to follow. Please re-consult if the wound(s) worsens. * Jo Barfield RN - 07/17/2025 5:31 AM EST Goal Outcome Evaluation: Plan of Care Reviewed With: patient Progress: no change Outcome Evaluation: patient on RA, NSR, VSS. AOx4. wound vac & de los santos in place, will continue POC * Maxine Webb RN - 07/16/2025 5:56 PM EST Problem: Adult Inpatient Plan of Care Goal: Plan of Care Review Outcome: Progressing Flowsheets (Taken 07/16/2025 1753) Progress: improving Outcome Evaluation: Patient is A&Ox4 and on RA. Continues to have burning and throbbing left LE pain. No signs of seizures noted. De Los Santos replaced this shift. Wound vac remains in place. Plan of Care Reviewed With: patient Goal Outcome Evaluation: Plan of Care Reviewed With: patient Progress: improving Outcome Evaluation: Patient is A&Ox4 and on RA. Continues to have burning and throbbing left LE pain. No signs of seizures noted. De Los Santos replaced this shift. Wound vac remains in place. * Carla Pratt RN - 07/16/2025 4:04 PM EST Goal Outcome Evaluation: Plan of Care Reviewed With: patient Progress: no change Outcome Evaluation: Palliative RN saw pt. at 1425. Pt. asleep and did not demonstrate any observable signs of discomfort. Did not attempt to wake pt. No family at BS. Plan for STR with abx therapy. Palliative care to continue to follow for support and ongoing [facility]. 0930 Palliative IDT meeting: DIABETES NURSE ;RNs;MDs; MDIV After hours, weekends and holidays, contact Palliative Provider by calling [phone]. * Shagufta Woodruff RN - 07/14/2025 5:36 PM EDT Goal Outcome Evaluation: Outcome Evaluation: Patient observed having pseudo seizure in the morning. Patient then began threatening staff members and refused all food and drink when offered multiple times throughout the day. Patient unarousable this afternoon, blood glucose dropped and given D50 IV push to raise it, restraints discontinued. Patient awake and still refusing all food, drink, and PO meds. Contacted MD multiple times with updates on mentation and refusal. * Ashley Sanchez, PT - 07/14/2025 10:06 AM EDT Goal Outcome Evaluation: Plan of Care Reviewed With: patient Progress: no change Outcome Evaluation: Patient's wound vac without leaks or issues. Patient without complaints. Patient continues to benefit from skilled PT services and NPWT to improve wound healing. * Jacqueline Proctor RN - 07/14/2025 7:58 AM EDT Goal Outcome Evaluation: Plan of Care Reviewed With: patient Patient had incontinent BM at start of shift and required full bed change and gluteal and sacrum dressings changed. Patient having visual hallucinations and provider notified. Urine culture ordered. De Los Santos changed. Patient pulled out PICC. Provider notified. Patient combative while attempt made to insert PIV. Patient placed in restraints. Family notified. NSR on tele-monitor. cast associate Oxycodone and Neurotin not given due to lethergy. P * Iggy Concepcion RN - 07/13/2025 6:13 PM EDT Goal Outcome Evaluation: Patient is AOX3 currently - he is more confused to situation than yesterday, still on Room Air, NSR, seen by PT WOC nurses today who re-wrapped his leg and worked on the wound vac, he is having good UOP via the de los santos catheter, although earlier today it was red/pink tinged and he passed some clots, (that could be related to last nights confusion episode- may have pulled on the de los santos overnight/early this morning), he also had 1 large BM today, worked w/ PT/OT, we continued IV Antibiotics, and he is currently stable, will continue POC. * Carla Pratt RN - 07/13/2025 3:39 PM EDT Goal Outcome Evaluation: Plan of Care Reviewed With: patient Progress: no change Outcome Evaluation: Palliative RN saw pt. at 1233. Pt. sitting up on side of bed on RA. Pt. endorsed 7 LLE pain but had just received PRN from primary RN. Mildly confused this afternoon but no more agitation. Pt. stated he plans to go to rehab with the goal of getting back home. Palliative care to continue to follow for support and ongoing [facility]. 929 Palliative IDT meeting: DIABETES NURSE ;RNs;MDs; MDIV After hours, weekends and holidays, contact Palliative Provider by calling [phone]. * Fátima Mora, OT - 07/13/2025 1:05 PM EDT Goal Outcome Evaluation: Plan of Care Reviewed With: patient Progress: improving Outcome Evaluation: Pt. was able to progress today in completing a bed to w/c transfer with mod of 2. Unable to move back to bed due to bed height with w/c. Pt. with overall improving balance and endurance. LE elevated with pillow in bed and while in w/c for edema control. Good participation with core and UE TE. Anticipated Discharge Disposition (OT): intermediate facility * Hayden Matias, PT - 07/13/2025 1:05 PM EDT Goal Outcome Evaluation: Plan of Care Reviewed With: patient Progress: improving Outcome Evaluation: Patient participated well in therapy today and made good progress performing slide transfer from bed to w/c. Patient remains limited by deconditioning/weakness and would cont to benefit from skilled IPPT. Anticipated Discharge Disposition (PT): inpatient rehabilitation facility * Duglas Mayes, PT - 07/13/2025 10:30 AM EDT Goal Outcome Evaluation: Plan of Care Reviewed With: patient Outcome Evaluation: wound vac dressing and unna boot changed today with good improvement noted in LE skin integrity. Pt cont to sit EOB with LE in dependent position. PT educated pt on need for LE elevation to help limit LE edema and improve skin integrity. PT will cont with unna boot change and wound vac change every 2-3 days. * Jacqueline Proctor RN - 07/13/2025 5:04 AM EDT Goal Outcome Evaluation: Plan of Care Reviewed With: patient Took over patient care at approximately 2200. Patient became agitated at approximately 0130 and accused staff of attempting to kill him, and accusing tech of attempting to kill staff. Patient threw wound vac across the room and removed tele-leading. Provider notified and Haldol 1 mg IV ordered. It wasn't given as Joaquim was able to get patient to agree to get back into bed and remain there. Patient not wearing tele-leads or pulse ox. Patient refused labs, IV antibiotic and morning pain medication and Neurotin. * Iggy Concepcion RN - 07/12/2025 6:21 PM EDT Goal Outcome Evaluation: Patient is on Room Air, Aox3-4, can be forgetful to situation, especially when he first wakes up, continued IV Antibiotics, changed meds today to try to lower huis serum potassium. VSS - will continue POC. * Darby Hickey RN - 07/12/2025 1:15 PM EDT Goal Outcome Evaluation: Inpatient Palliative RN visit to bedside. Pt appeared to be sleeping, 1 foot dangling off the side of the bed. Noted grimacing. De [place] Santos catheter and wound vac in place, antibiotics infusing. Pt on RA, sats 97%, respirations even and unlabored. LBM 07/12. Last dose of Oxycodone administered at approx 1230. Palliative will continue to follow. 929 Palliative IDT meeting: MD, DIABETES NURSE, RNs, MDIV, CHIEF LIBRARIAN BRANCH Inpatient Palliative Team office ([id number]) hours M-F 8a-4:30pm. After hours, weekends and holidays, contact Palliative Provider by calling [phone]. Problem: Palliative Care Goal: Enhanced Quality of Life Outcome: Progressing * Iggy Concepcion RN - 07/11/2025 6:08 PM EDT Goal Outcome Evaluation: Patient is NSR, Aox4, on Room Air, continued IV Antibiotics, continued PO Pain medicine regularly throughout the day, he had 1 large BM this afternoon, good UOP via De Los Santos Cath, VSS - will continue POC. * Carla Pratt RN - 07/11/2025 1:16 PM EDT Goal Outcome Evaluation: Plan of Care Reviewed With: patient Progress: no change Outcome Evaluation: Palliative RN saw pt. at 1203. Pt. sitting up on side of bed on RA endorsing 8/10 left lower extremity pain. Reminded pt. that he could reach out for prn in about an hour. Pt. denied nausea today and did not appear soa. Pt. personal cell kept ringing and he took a call on hospital phone. Palliative care to continue to follow for support and ongoing [facility]. 929 Palliative IDT meeting: DIABETES NURSE ;RNs;MDs; MDIV; CHIEF LIBRARIAN BRANCH After hours, weekends and holidays, contact Palliative Provider by calling [phone]. * Duglas Mayes, PT - 07/11/2025 11:15 AM EDT Goal Outcome Evaluation: Plan of Care Reviewed With: patient Outcome Evaluation: wound vac dressing intact with no issues noted. * Juliet Silverio RN - 07/11/2025 7:30 AM EDT Goal Outcome Evaluation: Plan of Care Reviewed With: patient Progress: no change Outcome Evaluation: VSS, A&Ox4, RA, NSR on surveillance monitor, prn pain medication given x2, pt slept intermittently, K+ 6.2 lokelma PO, dextrose and insulin given IV, will cont. to monitor. * Juani Clark OT - 07/10/2025 1:36 PM EDT Goal Outcome Evaluation: Plan of Care Reviewed With: patient Progress: no change Outcome Evaluation: Pt gave good effort for all activity this date, receptive to education regarding rehab potential should he choose to move forward with surgery. Pt voiced concerns about past therapy experience, his current challenges with R AKA, and being a burden to family and friends. Concerns addressed and pt reassured that OT is available if needed to continue conversation. Continue to progress self-care and functional mobility per OT POC. Anticipated Discharge Disposition (OT): intermediate facility * Duglas Mayes, PT - 07/10/2025 1:30 PM EDT Goal Outcome Evaluation: Plan of Care Reviewed With: patient Outcome Evaluation: wound vac dressing changed and PT applied unna boot in clamshell to LE with no compression to help decrease inflammation and improve skin integrity. * Hayden Matias, PT - 07/10/2025 11:20 AM EDT Goal Outcome Evaluation: Plan of Care Reviewed With: patient Progress: improving Outcome Evaluation: Patient participated well in therapy transferring to EOB performing scooting L and R and weight shifting activities. Significant time was spent educating patient on the potential options if he were to go through w/ surgery regarding functional mobility and rehab process. Patientremains limited by deconditioning/weakness and would cont to benefit from skilled IPPT. Anticipated Discharge Disposition (PT): inpatient rehabilitation facility * Norma Kramer, JESSEE - 07/09/2025 3:50 PM EDT Goal Outcome Evaluation: Pt medicated for pain as needed. Denies nausea, vomiting. Tolerating PO intake well. On RA with oxygen saturation >92%. NSR on tele monitor. Denies any needs at this time. * Luly Ley RN - 07/08/2025 6:30 PM EDT Problem: Adult Inpatient Plan of Care Goal: Plan of Care Review Outcome: Progressing Goal: Patient-Specific Goal (Individualized) Outcome: Progressing Goal: Absence of Hospital-Acquired Illness or Injury Outcome: Progressing Intervention: Identify and Manage Fall Risk Recent Flowsheet Documentation Taken 07/08/2025 1600 by Luly Ley RN Safety Promotion/Fall Prevention: activity supervised safety round/check completed nonskid shoes/slippers when out of bed muscle strengthening facilitated mobility aid in reach lighting adjusted Taken 07/08/2025 1400 by Luly Ley RN Safety Promotion/Fall Prevention: activity supervised safety round/check completed nonskid shoes/slippers when out of bed muscle strengthening facilitated mobility aid in reach lighting adjusted Taken 07/08/2025 1200 by Lluy Ley RN Safety Promotion/Fall Prevention: activity supervised safety round/check completed nonskid shoes/slippers when out of bed muscle strengthening facilitated mobility aid in reach lighting adjusted Taken 07/08/2025 1000 by Luly Ley RN Safety Promotion/Fall Prevention: activity supervised safety round/check completed nonskid shoes/slippers when out of bed muscle strengthening facilitated mobility aid in reach lighting adjusted Taken 07/08/2025 0800 by Luly Ley RN Safety Promotion/Fall Prevention: activity supervised safety round/check completed nonskid shoes/slippers when out of bed muscle strengthening facilitated mobility aid in reach lighting adjusted Intervention: Prevent Skin Injury Recent Flowsheet Documentation Taken 07/08/2025 1600 by Luly Ley RN Body Position: position changed independently Taken 07/08/2025 1400 by Luly Ley RN Body Position: position changed independently Taken 07/08/2025 1200 by Luly Ley RN Body Position: position changed independently Taken 07/08/2025 1000 by Luly Ley RN Body Position: position changed independently Taken 07/08/2025 0800 by Luly Ley RN Body Position: position changed independently Skin Protection: pouching devices used pectin skin barriers applied Intervention: Prevent Infection Recent Flowsheet Documentation Taken 07/08/2025 1600 by Luly Ley RN Infection Prevention: hand hygiene promoted Taken 07/08/2025 1400 by Luly Ley RN Infection Prevention: hand hygiene promoted personal protective equipment utilized rest/sleep promoted Taken 07/08/2025 1200 by Luly Ley RN Infection Prevention: hand hygiene promoted personal protective equipment utilized rest/sleep promoted Taken 07/08/2025 1000 by Luly Ley RN Infection Prevention: rest/sleep promoted personal protective equipment utilized hand hygiene promoted Taken 07/08/2025 0800 by Luly Ley RN Infection Prevention: hand hygiene promoted personal protective equipment utilized rest/sleep promoted Goal: Optimal Comfort and Wellbeing Outcome: Progressing Intervention: Provide Person-Centered Care Recent Flowsheet Documentation Taken 07/08/2025 1600 by Luly Ley RN Trust Relationship/Rapport: care explained choices provided Taken 07/08/2025 1200 by Luly Ley RN Trust Relationship/Rapport: care explained choices provided Taken 07/08/2025 1000 by Luly Ley RN Trust Relationship/Rapport: care explained choices provided Taken 07/08/2025 0800 by Luly Ley RN Trust Relationship/Rapport: care explained choices provided Goal: Readiness for Transition of Care Outcome: Progressing Goal Outcome Evaluation: * Guerita Gustafson RN - 07/07/2025 6:06 AM EDT Goal Outcome Evaluation: Progress: no change Outcome Evaluation: Pt on room air, VSS, NSR on monitor. Complaints of pain, PRN Oxycodone given. Slept most of night. Good UOP. * Duglas Mayes, PT - 07/06/2025 8:00 AM EDT Goal Outcome Evaluation: Plan of Care Reviewed With: patient Outcome Evaluation: wound vac dressing changed and PT noted beefy red wound bed with minimal depth.PT replaced wound vac, but pt may benefit from transition to basic advanced dressings upon d/c home. * Guerita Gustafson RN - 07/06/2025 4:42 AM EDT Goal Outcome Evaluation: Progress: no change Outcome Evaluation: Pt on room air, NSR on monitor, VSS. Complaints of pain, PRN Dilaudid given. Good UOP. Pt up most of night sitting on side of bed. * Asha Shah RN - 07/05/2025 3:25 PM EDT Goal Outcome Evaluation: Problem: Palliative Care Goal: Enhanced Quality of Life Outcome: Not Progressing Intervention: Promote Advance Care Planning Flowsheets (Taken 07/06/2025 1312) Life Transition/Adjustment: palliative care initiated palliative care discussed Intervention: Optimize Psychosocial Wellbeing Flowsheets (Taken 07/06/2025 1312) Supportive Measures: active listening utilized relaxation techniques promoted verbalization of feelings encouraged Palliative RN visited bedside at 1525. New palliative consult for assistance with pain management per Dr. Alcantara. Living will on file. HCS is pt's sister, Little Salazar. Silvio Resendez APRN saw pt yesterday for initial provider visit. Pt up in chair, extremely agitated. Pt has called out over 20 minutes before RN's arrival. Pt is having 10/10 pain in his bottom and his R BKA. Pt answered a few questions, but really wanted this RN to contact the RN about getting him back to bed and pain medications. Palliative care team following for continued support to pt and family with GO/POC. 0930 palliative IDT meeting: IZABELLA MURILLO, RN, SW, Postdoctoral Scholar After hours, weekends and holidays, contact Palliative Provider by calling [phone]. * Hayden Matias PT - 07/05/2025 10:34 AM EDT Goal Outcome Evaluation: Plan of Care Reviewed With: patient Progress: improving Outcome Evaluation: Patient participated well in therapy performing bed mobility and seated balanceactivities. Patient remains limited by deconditioning/weakness and would cont to benefit from skilled IPPT. Anticipated Discharge Disposition (PT): intermediate facility * Fátima Mora OT - 07/05/2025 10:32 AM EDT Goal Outcome Evaluation: Plan of Care Reviewed With: patient Progress: improving Outcome Evaluation: Patient demonstrated improved rolling ability this date and improving sitting balance. Pt. with new LLE debridement and wound vac LLE continueing to limit progress with bed to chair transfers without sling use. Pt. continues with generalized weakness proximal UE> than distal UE. Pt. continues with some LOB to rear and fear of falling forward with sitting balance. Pt. remains appropriate for skilled OT services to addres deficit areas of strength, balance, endurance and ROM to promote return to prior higher independence level. Anticipated Discharge Disposition (OT): intermediate facility * Guerita Gustafson RN - 07/05/2025 5:34 AM EDT Goal Outcome Evaluation: Progress: no change Outcome Evaluation: Pt on room air, VSS, NSR. Complaints of pain, PRN Dilaudid given. Good UOP. * David Marks RN - 07/04/2025 7:15 PM EDT Woc follow-up for all the full-thickness open wounds on the buttocks area. And pretty much drastically reduced in size. There is a tiny open areas on the right buttock and right posterior thigh. There is a larger area on the left posterior thigh but even then it is less than 1.5 cm in length that is now superficial. With the diarrhea the upside down Allevyn does not make sense anymore so we will switch to pink paste. Cleanse patient with pH no rinse foam and blue wipes and cover with pink paste twice daily and as needed for soiling. PT wound care consulted for wound VAC. Woc will follow as needed please elevate sacrum turn every 2. And left leg. * Duglas Mayes, PT - 07/04/2025 10:00 AM EDT Goal Outcome Evaluation: Plan of Care Reviewed With: patient Outcome Evaluation: Pt presents with open wound to foot s/p surgical debridement and wound vac placement. PT will f/u with wound vac change in 1-2 days. * Jo Barfield RN - 07/04/2025 5:47 AM EDT Goal Outcome Evaluation: Plan of Care Reviewed With: patient Progress: declining Outcome Evaluation: patient on 2L NC, NSR on monitor, VSS. patient underwent a surgical debridement& wound vac placement yesterday. Dr. Francisca Franco arrived from PACU with the patient stating the patient has been unresponsive since receiving ativan, she also stated history of similar events and to continue monitoring vitals and assess for changes. patient has been nonresponsive to painful stimuli, however pupils are equal, round and reactive. EKG obtained, VSS. * Gladys Bustamante RN - 07/03/2025 8:35 PM EDT Pt. To CT scan, tolerated well. Orders received to take pt back to room 636. * Gladys Bustamante RN - 07/03/2025 8:[address] Charla Franco hwere as well as the Nursing superviser. Pt still non responsive with stable Vital signs. CT of the head ordered. * Juliet Silverio RN - 07/03/2025 5:52 AM EDT Goal Outcome Evaluation: Plan of Care Reviewed With: patient Outcome Evaluation: pt remains NSR on surveillance monitor, RA, pain medication given x2, NPO after midnight for possible debredment and wound vac placement today * Iggy Concepcion RN - 07/02/2025 6:32 PM EDT Goal Outcome Evaluation: Patient is on Room Air, NSR, Aox4, continued IV Antibiotics, going NPO at midnight for Possible LLEprocedure tomorrow. VSS - will continue POC. * Lupe Albert APRN - 07/02/2025 3:25 PM EDT He is on the ADD-ON list for the OR tomorrow for LEFT lower extremity angiogram with LEFT foot wound debridement and wound vac placement and all other indicated procedures per Dr. Marcano. This is not guaranteed to go tomorrow pending OR availability but will place him NPO after MN just in case. Please call for any further vascular concerns. * Juliet Silverio RN - 07/02/2025 5:32 AM EDT Goal Outcome Evaluation: Plan of Care Reviewed With: patient Outcome Evaluation: Pt remains in NSR on surveillance monitor, RA, pain medication given x1, plan for L foot debredment and wound vac placement Tues, will cont. to monitor * Norma Kramer RN - 07/01/2025 4:44 PM EDT Goal Outcome Evaluation: VSS. Pt medicated for pain as needed. Denies nausea, vomiting. Tolerating PO intake well. On RA with oxygen saturation >92%. NSR on tele monitor. Resting in bed. Denies any needs at this time. * Ildefonso Doe RN - 07/01/2025 5:55 AM EDT Goal Outcome Evaluation: Outcome Evaluation: Pt resting throughout shift. Pt received pain medication once. * Ildefonso Doe RN - 06/30/2025 4:06 AM EDT Goal Outcome Evaluation: Outcome Evaluation: Pt resting comfortably through out shift. Pt had two BMs at beginning of shift. * Leonie Thomas - 06/29/2025 8:27 AM EDT Goal Outcome Evaluation: Plan of Care Reviewed With: patient Progress: no change Outcome Evaluation: Patient rolled R/L in bed with order to be cleaned and have lift sling placed. Patient required lift to transfer from bed to chair. Patient continues to present below baseline formobility and would continue to benefit from skilled PT to address strength, balance and activity tolerance deficits. Continue current PT POC. Anticipated Discharge Disposition (PT): intermediate facility * Fátima Mora OT - 06/29/2025 8:26 AM EDT Goal Outcome Evaluation: Plan of Care Reviewed With: patient Progress: no change Outcome Evaluation: Patient needed min to mod A to roll in bed today for dependent cleaning of stool and lift placement and mod A to change out gown. Pt. continues to be below baseline with ADLs and transfers warranting continued skilled OT services to address deficit of strength, balance and endurance. Continue OT POC. Anticipated Discharge Disposition (OT): intermediate facility * Abril Espinoza RN - 06/29/2025 4:47 AM EDT Goal Outcome Evaluation: Plan of Care Reviewed With: patient Progress: improving Outcome Evaluation: pt on RA. sinus on tele. complained of pain relieved with PRN meds. no other complaints during shift. fall precautions in place. plan of care on going * David Marks RN - 06/26/2025 5:56 PM EDT Images from the original note were not included. I was for the sacrum and the buttocks. There is no pressure injuries on the sacrococcygeal bone. There are open areas to the right buttocks and the left lower buttocks and perirectal area. These are rather deep they are full-thickness butthey are moisture related. I used an upside down heel Allevyn dressing for the right buttock wounds and to pad the sacrococcygeal area. Continue with the 4 x 4's Optifoam's to cover the ones on the left ischial tuberosity. If fecal incontinence gets too much call [facility] and we will send pink paste. While using Allevyn's please use green wipes to cleanse and might need some barrier spray to help the dressing stick better. As for the left leg there is an evolving deep tissue injury on that left heel most likely exacerbated by arterial compromise. There is a nonhealing transmetatarsal amputation site. There is also red cellulitis with lots of weeping from the calf. Known arterial disease could have some venous disease 2. Would not compress no matter what the ABIsare because of the arterial disease is known. Patient states that he has been getting compressed and people been putting Unna boots on him. Boots1 are contraindicated to people who are nonambulatory to they are contraindicated in arterial compromise. Patient may have mixed disease given the amount of weeping from the calf however at this time I would not wrap them with anything. Vascular does plan to follow. At this time I cleansed the wounds with normal saline I applied Mepilex Ag which is silver to the back to the calves with ABD pads I applied honey to the transmetatarsal slough and covered with a Mepilex Ag and I covered the deep tissue injury on the heel with a Mepilex Ag wrapped with Kerlix 2 of them and padded with 4 x 4's. This will need to be removed if he goes to get an MRI because there are silver in the dressing. When he comes back he can just wrap with I left a Xeroform rolls in there so cleanse with normal saline wrap with Xeroform roll pad with ABD pads and wrap with Kerlix not too tight. * Mirela Hsu PT - 06/26/2025 2:35 PM EDT Goal Outcome Evaluation: Plan of Care Reviewed With: patient Progress: no change Outcome Evaluation: Patient presents with weakness, decreased balance, and deficits in trunk control affecting functional mobility. Patient presents with decreased ability to care for self at home. Skilled IP PT services warranted to increase independence. Recommend SNF at discharge. Anticipated Discharge Disposition (PT): intermediate facility * Crys Ferrari, OT - 06/26/2025 2:34 PM EDT Goal Outcome Evaluation: Plan of Care Reviewed With: patient Outcome Evaluation: Pt's ADL independence limited d/t decreased functional endurance, LE strength deficits, and balance deficits. Pt would benefit from continued skilled IPOT services to address current functional deficits. Rec SNF at d/c. Anticipated Discharge Disposition (OT): intermediate facility documented in this encounter OR Notes * Op Note - Vaughn Hollingsworth DO - 07/03/2025 2:59 PM EDT AORTOGRAM WITH OR WITHOUT RUNOFFS POSSIBLE STENT, INCISION AND DRAINAGE LOWER EXTREMITY Procedure Report Patient Name: Trung Pool Date of : 1955 Date of Surgery: 07/03/2025 Indications: 70-year-old gentleman with concern for critical limb ischemia and nonhealing wound to left transmetatarsal amputation site Pre-op Diagnosis: PAD (peripheral artery disease) [I73.9] Wound infection [T14.8XXA, L08.9] Post-Op Diagnosis Codes: * PAD (peripheral artery disease) [I73.9] * Wound infection [T14.8XXA, L08.9] Procedure/CPT?? Codes: No CPT Code Applied in Case Entry Procedure(s): Ultrasound-guided access of the right common femoral artery Aortogram 2 level angiogram left leg Intravascular ultrasound interpretation of left common femoral artery, left superficial femoral artery and left popliteal artery 6 [place] Angio-Seal closure of right common femoral arteriotomy Sharp excisional debridement of left transmetatarsal amputation stump site with 10 blade scalpel down to the level of the skin Application of negative pressure wound therapy wound measures 4.5 cm x 6 cm x 1 mm Staff: Surgeon(s): Vaughn Hollingsworth DO All Around [employer] Machine Operator: Alessandra Gregory RN [employer] Associate: Juani Blair RTJada Nassar Scrub Person: Najma Win Security System Technician: Crys Xavier Anesthesia: Monitored Anesthesia Care Estimated Blood Loss: minimal Implants: Nothing was implanted during the procedure Specimen: None Findings: 40% stenosis of distal superficial femoral artery nonflow limiting, patent posterior tibial artery and anterior tibial artery crossing the ankle Complications: None Description of Procedure: The patient was brought back the op room laid supine the operative table. He was connected to hemodynamic monitoring. A timeout was called indicating proper patient surgical site. The anesthesia staff induced monitored anesthesia care the nursing staff prepped and draped the patient in standard sterile fashion. I began by using ultrasound-guided access of the right common femoral artery the micropuncture needle wire ultimately 6 Azerbaijani sheath was placed in the right common femoral artery. I then used a Glidewire advantage and Omni Flush catheter to cannulate the distal aorta the wire was pulled and a distal aortogram was performed this revealed a widely patent distal aorta bilateral common external and internal iliac arteries. There is no flow-limiting stenosis identified in this area. The wire and catheter were then directed to the left femoral head the wire was pulled and a 2 level angiogram were taken on this approach this revealed a widely patent common femoral artery and profundofemoral artery the proximal superficial femoral artery was widely patent the mid to distal superficial femoral artery had some calcification present and narrowing but did not appear significant there was three-vessel runoff at the tibial trifurcation the anterior tibial artery and posterior tibial artery across the ankle into the foot. Given the concern for nonhealing wound of the foot and the CT scan showing disease in the distal superficial femoral artery I elected to proceed with intravascular ultrasound to ensure there was no occult lesions on angiogram. I exchanged the short 6 Azerbaijani sheath for a 6 Azerbaijani by 45 cm sheath that was placed in the left external iliac artery I then placed an014 wire down through the popliteal artery and into the tibial arteries and performed intravascular ultrasound with interpretation of the left common femoral artery this appeared widely patent the proximal left superficial femoral artery was widely patent as was the mid superficial femoral artery distally this artery had some calcific disease and narrowing present approximately 40% stenosis but did not appear significant enough for treatment. At this point the endovascular portion of the procedure was completed the wires and sheaths were removed and the right common femoral arteriotomy was closed with 6 [place] Angio-Seal. I then turned my attention to the left TMA stump site I used a 10 blade scalpel and debrided the superficial wound down to the level of granulation tissue at the skin. This was washed thoroughly withsaline I then applied a wound VAC the wound measured 4.5 cm x 6 cm x 0.1 cm. Vaughn Hollingsworth DO Date: 07/03/2025 Time: 15:51 EDT documented in this encounter ED Notes * Ally Jeffers APRN - 06/25/2025 6:10 PM EDT EMERGENCY DEPARTMENT ENCOUNTER Pt Name: Trung Pool Pt : 1955 Room Number: 10/15 Date of encounter: 06/25/2025 PCP: Gustavo Mehta MD ED Provider: Ally Jeffers APRN Historian: Patient, EMS HPI: Chief Complaint: Hematuria, diarrhea, left foot infection Context: Trung Polo is a 70 y.o. male who presents to the ED c/o hematuria and diarrhea patient arrived from home via [facility]. Concerned with abdominal discomfort, liquid stools with foul odor, hematuria and wound infection. Patient with indwelling catheter due to bedsores, last catheter change was during a hospital admission. He was admitted for cellulitis of left foot and hematuria, discharged on 06/11/2025. He reports generalized fatigue, abdominal discomfort, no significant pain to the left leg. He does not want surgical intervention to left lower extremity and and SNF admission. His home health nurse today became concerned with above symptoms and sent patient to ER. PAST MEDICAL HISTORY Past Medical History: Diagnosis Date Anemia Cellulitis Diabetes mellitus Frequent falls History of DVT (deep vein thrombosis) Hyperlipidemia Hypertension Migraines Myocardial infarction Peripheral neuropathy Pneumonia Spinal stenosis Wears dentures FULL Wears glasses PAST SURGICAL HISTORY Past Surgical History: Procedure Laterality Date ABOVE KNEE AMPUTATION Right AMPUTATION DIGIT Left 01/28/2024 Procedure: SECOND AND THIRD TOE AMPUTATION LEFT; Surgeon: Cecil Buenrostro Jr., MD; Location: [facility]; Service: Orthopedics; Laterality: Left; ANTERIOR CERVICAL DISCECTOMY W/ FUSION Bilateral 07/17/2020 Procedure: Cervical discectomy anterior with fusion C3-4; Surgeon: Tyree Tan MD; Location:[facility]; Service: Neurosurgery; Laterality: Bilateral; AORTOGRAM N/A [...] femoral access; Surgeon: Jared Marcano MD; Location: [facility]VASIVE [facility]ATION; Service: Peripheral Vascular; Laterality: N/A; CORONARY ANGIOPLASTY WITH STENT PLACEMENT stent x 1 INCISION AND DRAINAGE FOOT Left 06/17/2023 Procedure: LEFT FOOT DEBRIDEMENT WOUND VACUUM ASSISTED CLOSURE; Surgeon: eCcil Buenrostro Jr., MD;Location: [facility]; Service: Orthopedics; Laterality: Left; INCISION AND DRAINAGE LEG Left 07/25/2023 Procedure: INCISION AND DRAINAGE HEEL, WOUND VAC; Surgeon: Cecil Buenrostro Jr., MD; Location: [facility]; Service: Orthopedics; Laterality: Left; INTERVENTIONAL RADIOLOGY PROCEDURE N/A 05/02/2019 Procedure: IVC FILTER PLACEMENT; Surgeon: Pedro Zapien MD; Location: [facility]; Service: Interventional Radiology INTERVENTIONAL RADIOLOGY PROCEDURE Left 09/07/2024 Procedure: LEFT peroneal arteriovenous fistula embolization - Right femoral access; Surgeon: Jared Marcano MD; Location: [facility] INVASIVE LOCATION; Service: Cardiovascular; Laterality: Left; [facility] [phone] who will bring coils LUMBAR DISCECTOMY N/A 05/03/2019 Procedure: THORACIC LAMINECTOMY T11-12; Surgeon: Tyree Tan MD; Location: [facility]; Service: Neurosurgery FAMILY HISTORY Family History Problem Relation Age of Onset Alcohol abuse Father SOCIAL HISTORY Social History[1] ALLERGIES Keppra [levetiracetam], Bupropion, Codeine, Hydrocodone, and Ketorolac tromethamine REVIEW OF SYSTEMS Review of Systems All systems reviewed and negative except for those discussed in HPI. PHYSICAL EXAM I have reviewed the triage vital signs and nursing notes. ED Triage Vitals Temp Pulse Resp BP SpO2 -- -- -- -- -- Temp src Heart Rate Source Patient Position BP Location FiO2 (%) -- -- -- -- -- Physical Exam GENERAL: Appears in no acute distress. Obese HENT: Nares patent. EYES: No scleral icterus. CV: Regular rhythm, regular rate. RESPIRATORY: Normal effort. No audible wheezes, rales or rhonchi. ABDOMEN: Soft, protuberant, mild generalized tenderness MUSCULOSKELETAL: Right AKA, left foot open wound with yellow discharge, surrounding erythema, amputated toes, able to auscultate distal pulses of the left foot with the Doppler NEURO: Alert, moves all extremities, follows commands. SKIN: Warm, dry, no rash visualized. LAB RESULTS Recent Results (from the past 24 hours) Comprehensive Metabolic Panel Collection Time: 06/25/25 6:17 PM Specimen: Blood Result Value Ref Range Glucose 173 (H) 65 - 99 mg/dL BUN 27.3 (H) 8.0 - 23.0 mg/dL Creatinine 1.21 0.76 - 1.27 mg/dL Sodium 138 136 - 145 mmol/L Potassium 4.4 3.5 - 5.2 mmol/L Chloride 106 98 - 107 mmol/L CO2 21.2 (L) 22.0 - 29.0 mmol/L Calcium 8.3 (L) 8.6 - 10.5 mg/dL Total Protein 7.2 6.0 - 8.5 g/dL Albumin 3.2 (L) 3.5 - 5.2 g/dL ALT (SGPT) 14 1 - 41 U/L AST (SGOT) 15 1 - 40 U/L Alkaline Phosphatase 127 (H) 39 - 117 U/L Total Bilirubin 0.2 0.0 - 1.2 mg/dL Globulin 4.0 gm/dL A/G Ratio 0.8 g/dL BUN/Creatinine Ratio 22.6 7.0 - 25.0 Anion Gap 10.8 5.0 - 15.0 mmol/L eGFR 64.0 >60.0 mL/min/1.73 Lactic Acid, Plasma Collection Time: 06/25/25 6:17 PM Specimen: Blood Result Value Ref Range Lactate 1.7 0.5 - 2.0 mmol/L Procalcitonin Collection Time: 06/25/25 6:17 PM Specimen: Blood Result Value Ref Range Procalcitonin 0.12 0.00 - 0.25 ng/mL C-reactive Protein Collection Time: 06/25/25 6:17 PM Specimen: Blood Result Value Ref Range C-Reactive Protein 4.34 (H) 0.00 - 0.50 mg/dL CBC Auto Differential Collection Time: 06/25/25 6:17 PM Specimen: Blood Result Value Ref Range WBC 9.96 3.40 - 10.80 10*3/mm3 RBC 3.91 (L) 4.14 - 5.80 10*6/mm3 Hemoglobin 8.9 (L) 13.0 - 17.7 g/dL Hematocrit 29.8 (L) 37.5 - 51.0 % MCV 76.2 (L) 79.0 - 97.0 fL MCH 22.8 (L) 26.6 - 33.0 pg MCHC 29.9 (L) 31.5 - 35.7 g/dL RDW 16.6 (H) 12.3 - 15.4 % RDW-SD 45.8 37.0 - 54.0 fl MPV 9.5 6.0 - 12.0 fL Platelets 281 140 - 450 10*3/mm3 Neutrophil % 70.8 42.7 - 76.0 % Lymphocyte % 14.9 (L) 19.6 - 45.3 % Monocyte % 10.1 5.0 - 12.0 % Eosinophil % 3.2 0.3 - 6.2 % Basophil % 0.5 0.0 - 1.5 % Immature Grans % 0.5 0.0 - 0.5 % Neutrophils, Absolute 7.05 (H) 1.70 - 7.00 10*3/mm3 Lymphocytes, Absolute 1.48 0.70 - 3.10 10*3/mm3 Monocytes, Absolute 1.01 (H) 0.10 - 0.90 10*3/mm3 Eosinophils, Absolute 0.32 0.00 - 0.40 10*3/mm3 Basophils, Absolute 0.05 0.00 - 0.20 10*3/mm3 Immature Grans, Absolute 0.05 0.00 - 0.05 10*3/mm3 nRBC 0.0 0.0 - 0.2 /100 WBC Wound Culture - Swab, Foot, Left Collection Time: 06/25/25 6:18 PM Specimen: Foot, Left; Swab Result Value Ref Range Gram Stain Few (2+) WBCs seen Gram Stain Few (2+) Gram positive cocci in pairs, chains and clusters Gram Stain Few (2+) Gram negative bacilli Urinalysis With Culture If Indicated - Indwelling Urethral Catheter Collection Time: 06/25/25 8:01 PM Specimen: Indwelling Urethral Catheter; Urine Result Value Ref Range Color, UA Yellow Yellow, Straw Appearance, UA Turbid (A) Clear pH, UA 6.0 5.0 - 8.0 Specific [place], UA 1.011 1.005 - 1.030 Glucose, UA Negative Negative Ketones, UA Negative Negative Bilirubin, UA Negative Negative Blood, UA Large (3+) (A) Negative Protein, UA Trace (A) Negative Leuk Esterase, UA Large (3+) (A) Negative Nitrite, UA Positive (A) Negative Urobilinogen, UA 0.2 E.U./dL 0.2 - 1.0 E.U./dL Urinalysis, Microscopic Only - Indwelling Urethral Catheter Collection Time: 06/25/25 8:01 PM Specimen: Indwelling Urethral Catheter; Urine Result Value Ref Range RBC, UA 6-10 (A) None Seen, 0-2 /HPF WBC, UA Too Numerous to Count (A) None Seen, 0-2 /HPF Bacteria, UA 4+ (A) None Seen /HPF Squamous Epithelial Cells, UA 0-2 None Seen, 0-2 /HPF Yeast, UA Moderate/2+ Budding Yeast (A) None Seen /HPF Hyaline Casts, UA 7-12 None Seen /LPF Methodology Manual Light Microscopy If labs were ordered, I independently reviewed the results and considered them in treating the patient. RADIOLOGY CT Abdomen Pelvis With Contrast Addendum Date: 06/25/2025 ADDENDUM #1 IVC filter is present on imaging study. It is recommended that all patients with IVC filters in place have an active management care plan to monitor their IVC filter. If a care plan is not in place, patient should have a non emergent referral to an interventional specialist such as interventional radiology or other interventional vascular specialist for establishment of an IVC filter management care plan. Electronically Signed: Nehemias Ferraro 06/25/2025 9:53 PM EDT Workstation ID: [id number] ORIGINAL REPORT: CT ABDOMEN PELVIS W CONTRAST Date of Exam: 06/25/2025 7:05 PM EDT Indication:Diarrhea, hematuria, abdominal discomfort. Comparison: 06/02/2025 Technique: Axial CT images were obt ained of the abdomen and pelvis following the uneventful intravenous administration of iodinated contrast. Reconstructed coronal and sagittal images were also obtained. Automated exposure control anditerative construction methods were used. Findings: Calcific atherosclerosis of the coronary arteries. No pleural or pericardial effusion. No suspicious infiltrate in the lower lungs. No definite ectopic bowel gas. No splenomegaly or suspicious splenic lesion. No suspicious hepatic abnormality. No definite acute biliary abnormality. No suspicious splenic or pancreatic abnormality. Aorta appears normal in caliber. There is calcific atherosclerosis of the aorta and branch vessels. IVC filter is present, as before. Lymph nodes do not appear significantly enlarged. Probable small bilateral upper pole renal cysts. There is expected excretion of contrast from the kidneys. No hydronephrosis. No dilated small bowel loops. No definite acute gastric abnormality. Small fat-containing umbilical hernia. There are bilateral inguinal hernias. Smaller right inguinal hernia contains fat. Larger left inguinal hernia contains a partial loop of sigmoid colon. No proximal dilatation. The appendix appears within normal limits. No definite findings of acute colonic inflammation. The bladder is moderately distended. Small amount of gas is present in the bladder, as before. Bladder wall thickening appearsmildly decreased since the prior exam. Prostate does not appear significantly enlarged. [place] catheter balloon and tip appears to terminate in the proximal penile urethra. There is some questionable wall thickening of the distal rectum. No other definite perirectal abnormality. There appears to be mild asymmetric prominence of the left inguinal lymph nodes. Severe left and moderate right hip osteoarthritis. Advanced degenerative changes in the lumbar spine. Mild chronic T11 and T12 height loss,as before. There is ankylosis at the sacroiliac joints. No visualized aggressive osseous lesion. Impression: 1.[place] catheter balloon and tip appear to terminate in the proximal penile urethra. Recommend repositioning. 2.Moderate distention of the bladder with small amount of gas in the bladder, asbefore. Bladder wall thickening appears mildly decreased since the prior exam. Correlate with urinalysis. 3.Questionable wall thickening of the distal rectum. Correlate for symptoms of proctitis. 4.Bilateral inguinal hernias, larger on the left containing a partial loop of sigmoid colon. No proximal dilatation. 5.Mild asymmetric prominence of the left inguinal lymph nodes, likely reactive. Clinical follow-up recommended. 6.Calcific atherosclerosis. The ordering provider was notified of the results by Dr. Ferraro at 06/25/2025 7:54 PM EDT. Electronically Signed: Nehemias Ferraro 06/25/2025 7:55 PM EDT Workstation ID: [id number] Result Date: 06/25/2025 CT ABDOMEN PELVIS W CONTRAST Date of Exam: 06/25/2025 7:05 PM EDT Indication: Diarrhea, hematuria, abdominal discomfort. Comparison: 06/02/2025 Technique: Axial CT images were obtained of the abdomen and pelvis following the uneventful intravenous administration of iodinated contrast. Reconstructed coronal and sagittal images were also obtained. Automated exposure control and iterative construction methods were used. Findings: Calcific atherosclerosis of the coronary arteries. No pleural or pericardial effusion. No suspicious infiltrate in the lower lungs. No definite ectopic bowel gas. No splenomegaly or suspicious splenic lesion. No suspicious hepatic abnormality. No definite acute biliary abnormality. No suspicious splenic or pancreatic abnormality. Aorta appears normal in caliber. There is calcific atherosclerosis of the aorta and branch vessels. IVC filter is present, as before. Lymph nodes do not appear significantly enlarged. Probable small bilateral upper pole renal cysts. There is expected excretion of contrast from the kidneys. No hydronephrosis. No dilated small bowel loops. No definite acute gastric abnormality. Small fat- containing umbilical hernia. There are bilateralinguinal hernias. Smaller right inguinal hernia contains fat. Larger left inguinal hernia contains a partial loop of sigmoid colon. No proximal dilatation. The appendix appears within normal limits. No definite findings of acute colonic inflammation. The bladder is moderately distended. Small amount of gas is present in the bladder, as before. Bladder wall thickening appears mildly decreased since the prior exam. Prostate does not appear significantly enlarged. [place] catheter balloon and tip appears to terminate in the proximal penile urethra. There is some questionable wall thickening of thedistal rectum. No other definite perirectal abnormality. There appears to be mild asymmetric prominence of the left inguinal lymph nodes. Severe left and moderate right hip osteoarthritis. Advanced degenerative changes in the lumbar spine. Mild chronic T11 and T12 height loss, as before. There is ankylosis at the sacroiliac joints. No visualized aggressive osseous lesion. Impression: 1.[place] catheter balloon and tip appear to terminate in the proximal penile urethra. Recommend repositioning. 2.Moderate distention of the bladder with small amount of gas in the bladder,as before. Bladder wall thickening appears mildly decreased since the prior exam. Correlate with urinalysis. 3.Questionable wall thickening of the distal rectum. Correlate for symptoms of proctitis. 4.Bilateral inguinal hernias, larger on the left containing a partial loop of sigmoid colon. No proximal dilatation. 5.Mild asymmetric prominence of the left inguinal lymph nodes, likely reactive. Clinical follow-up recommended. 6.Calcific atherosclerosis. The ordering provider was notified of the results by Dr. Ferraro at 06/25/2025 7:54 PM EDT. Electronically Signed: Nehemias Ferraro 06/25/2025 7:55 PMEDT Workstation ID: [id number] XR Foot 3+ View Left Result Date: 06/25/2025 XR FOOT 3+ VW LEFT Date of Exam: 06/25/2025 6:15 PM EDT Indication: diabetic ulcer. Comparison: August 2024 Findings: Bones are grossly osteopenic. There is marked soft tissue swelling overlying dorsum of the foot and at the stump distal to the metatarsal ray resection sites. There is shallow soft tissue ulceration at the dorsum of the foot distally. 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 There is dense vascular calcification noted. Impression: Marked soft tissue swelling at the stump and dorsum of the foot suggest cellulitis.. Small shallow soft tissue ulceration distal dorsum of the foot No acute osseous abnormality. If there is concern for osteomyelitis MRI is recommended. Electronically Signed: Duglas Lay MD 06/25/2025 7:03 PM EDT Workstation ID: [id number] I ordered and independently reviewed the above noted radiographic studies. I viewed images of x-ray of the foot which showed soft tissue swelling per my independent interpretation. See radiologist's dictation for official interpretation. PROCEDURES Procedures Telemetry Scan Final Result ECG 12 Lead QT Measurement (Results Pending) MEDICATIONS GIVEN IN ER Medications sodium chloride 0.9 % flush 10 mL (has no administration in time range) sodium chloride 0.9 % infusion (has no administration in time range) sepsis fluid NS 0.9 % bolus 2,838 mL (has no administration in time range) piperacillin-tazobactam (ZOSYN) 4.5 g IVPB in 100 mL NS MBP (CD) (has no administration in time range) sodium chloride 0.9 % flush 10 mL (has no administration in time range) sodium chloride 0.9 % flush 10 mL (has no administration in time range) heparin (porcine) 5000 UNIT/ML injection 5,000 Units (has no administration in time range) nitroglycerin (NITROSTAT) SL tablet 0.4 mg (has no administration in time range) Potassium Replacement - Follow Nurse / BPA Driven Protocol (has no administration in time range) Magnesium Cardiology Dose Replacement - Follow Nurse / BPA Driven Protocol (has no administration in time range) Phosphorus Replacement - Follow Nurse / BPA Driven Protocol (has no administration in time range) Calcium Replacement - Follow Nurse / BPA Driven Protocol (has no administration in time range) acetaminophen (TYLENOL) tablet 650 mg (has no administration in time range) Or acetaminophen (TYLENOL) 160 MG/5ML oral solution 650 mg (has no administration in time range) Or acetaminophen (TYLENOL) suppository 650 mg (has no administration in time range) morphine injection 2 mg (has no administration in time range) And naloxone (NARCAN) injection 0.4 mg (has no administration in time range) sennosides-docusate (PERICOLACE) 8.6-50 MG per tablet 2 tablet (has no administration in time range) And polyethylene glycol (MIRALAX) packet 17 g (has no administration in time range) And bisacodyl (DULCOLAX) EC tablet 5 mg (has no administration in time range) And bisacodyl (DULCOLAX) suppository 10 mg (has no administration in time range) ondansetron (ZOFRAN) injection 4 mg (has no administration in time range) famotidine (PEPCID) tablet 40 mg (has no administration in time range) aluminum-magnesium hydroxide-simethicone (MAALOX MAX) 400-400-40 MG/5ML suspension 15 mL (has no administration in time range) piperacillin-tazobactam (ZOSYN) 4.5 g IVPB in 100 mL NS MBP (CD) (has no administration in time range) DAPTOmycin (CUBICIN) 550 mg in sodium chloride 0.9 % 50 mL IVPB (has no administration in time range) iopamidol (ISOVUE-300) 61 % injection 85 mL (85 mL Intravenous Given 06/25/251928) sodium chloride 0.9 % bolus 500 mL (500 mL Intravenous New Bag 06/25/252006) DAPTOmycin (CUBICIN) 550 mg in sodium chloride 0.9 % 50 mL IVPB (550 mg Intravenous New Bag 06/25/252236) meropenem (MERREM) 1,000 mg in sodium chloride 0.9 % 100 mL MBP (0 mg Intravenous Stopped 06/25/252236) MEDICAL DECISION MAKING, PROGRESS, and CONSULTS All labs, if obtained, have been independently reviewed by me. All radiology studies, if obtained, have been reviewed by me and the radiologist dictating the report. All EKG's, if obtained, have beenindependently viewed and interpreted by me/my attending physician. Discussion below represents my analysis of pertinent findings related to patient's condition, differential diagnosis, treatment plan and final disposition. Patient is 70 chronically ill male history of hypertension, dyslipidemia, coronary artery disease, peripheral arterial disease, right AKA, leftlower extremity revascularization with toe amputations, recurrent cellulitis, diabetes type 2, obesity, debility, chronic De [place] Santos, seizure who presented for evaluation of worsening of leg pain and swelling and hematuria. He arrived to ER via EMS, on physical exam he was chronically ill-appearing, vital signs were stable, erythematous edematous left lower extremity with large wound noted, distal pulses were auscultated with Doppler, [place] catheter changed, x- ray of the foot showed cellulitis, softtissue ulceration, no acute osseous abnormality. Lab work significant for normal white count, chronic anemia hemoglobin 8.9, hematocrit 29.8, normal lactate 1.7, CRP 4.34, urinalysis with pyuria, bacteriuria, large leuk esterase and nitrates,on site pharmacy is consulted for antibiotic selection, started on daptomycin and Merrem as per last admission ID orders. Hospital service consulted for further evaluation and management Differential diagnosis: Cellulitis, osteomyelitis, peripheral vascular disease, UTI, urosepsis, infectious diarrhea, diverticulosis, diverticulitis, dehydration Additional sources: - Discussed/ obtained information from independent historians: EMS - External (non-ED) record review: 06/11/2025, discharge summary, was admitted for cellulitis, hematuria - Chronic or social conditions impacting care: Comorbidities - Shared decision making: Patient Orders placed during this visit: Orders Placed This Encounter Procedures Blood Culture - Blood, Blood Culture - Blood, Gastrointestinal Panel, PCR - Stool, Per Rectum Clostridioides difficile Toxin - Stool, Per Rectum Clostridioides difficile Toxin, PCR - Stool, Per Rectum Wound Culture - Swab, Foot, Left Urine Culture - Urine, MRSA Screen, PCR (Inpatient) - Swab, Nares XR Foot 3+ View Left CT Abdomen Pelvis With Contrast CT Angiogram Lower Extremity Left MRI Foot Left Without Contrast Comprehensive Metabolic Panel Lactic Acid, Plasma Procalcitonin C-reactive Protein Urinalysis With Culture If Indicated - Urine, Catheter CBC Auto Differential Urinalysis, Microscopic Only - Urine, Clean Catch Comprehensive Metabolic Panel CBC Auto Differential Lactic Acid, Plasma Protime-INR Hemoglobin A1c Magnesium Phosphorus Lipid Panel CK TSH Rfx On Abnormal To Free T4 Iron Profile w/o Ferritin Vitamin B12 Ferritin Diet: Cardiac; Healthy Heart (2-3 Na+); Fluid Consistency: Thin (IDDSI 0) Replace Current Indwelling Urinary Catheter Prior to Collecting Urine Specimen Assess Need for Indwelling Urinary Catheter - Follow Removal Protocol Urinary Catheter Care Vital Signs Intake & Output Weigh Patient Oral Care Maintain IV Access Telemetry - Place Orders & Notify Provider of Results When Patient Experiences Acute Chest Pain, Dysrhythmia or Respiratory Distress May Be Off Telemetry for Tests Continuous Pulse Oximetry Activity - Bed Rest With Exceptions (Specify) Strict Intake & Output Neurovascular Checks Daily Weights Notify Provider (With Default Parameters) Notify PCP of Patient Admission Prepare Patient for Discharge in 2 Days; 06/27/2025; Telephone Recorder Clearance; Surgery Contact Providerfor Discharge Orders When Complete Code Status and Medical Interventions: CPR (Attempt to Resuscitate); Full Support Patient Isolation Contact Spore Incentive Spirometry Oxygen Therapy- Nasal Cannula; Titrate 1-6 LPM Per SpO2; 90 - 95% Oscillating Positive Expiratory Pressure (OPEP) POC Glucose Once Telemetry Scan ECG 12 Lead QT Measurement Type & Screen Wound Ostomy Eval & Treat Insert Peripheral IV Insert 2 Large Bore (18G) Peripheral IVs Insert Peripheral IV Inpatient Admission CBC & Differential Additional orders considered but not ordered: ED Course: Consultants: ED Course as of 06/25/252326Jun 25, 20251950 Per radiology report patient's [place] catheter balloon is in penile urethra. Order for De [place] Santos catheter change was already placed, I notified RN, asked to expedite De [place] Santos catheter change [IR] 1999 De [place] Santos catheter was replaced [IR] 2006 Hemoglobin(!): 8.9 [IR] 2006 Hematocrit(!): 29.8 Chronic anemia [IR] 2006 Lactate: 1.7 [IR] 2007 Procalcitonin: 0.12 [IR] 2007 C-Reactive Protein(!): 4.34 [IR] 2007 WBC: 9.96 [IR] 2141 Vaughn Hartman MD I saw and evaluated this patient in the emergency department. I feel he would be best suited for admission. I consulted our emergency department pharmacist who recommends daptomycin and Merrem which is what infectious disease had him on the last admission. His culture was shown to have ESBL and MRSA. Ordering those medications now. Will admit. I did speak with the patient about the possibility of amputation but at this point he is adamantly against allowing this for his left lower extremity even if it means that he dies of sepsis from infection or other causes. [MS] ED Course User Index [IR] Ally Jeffers APRN [MS] Vaughn Hartman MD Shared Decision Making: After my consideration of clinical presentation and any laboratory/radiology studies obtained, I discussed the findings with the patient/patient labor representative who is in agreement with the treatment plan and the final disposition. Risks and benefits of discharge and/or observation/admission were discussed. OF 23:27 EDT VITALS: BP - 153/78 HR - 84 TEMP - 98.3 ??F (36.8 ??C) O2 SATS - 97% DIAGNOSIS Final diagnoses: Cellulitis of left lower extremity Hematuria, unspecified type Urinary tract infection associated with indwelling urethral catheter, initial encounter Diarrhea, unspecified type DISPOSITION admit Please note that portions of this document were completed with voice recognition software. Ally Jeffers APRN 06/25/25 23:27 EDT [1] Social History Socioeconomic History Marital status: Single Tobacco Use Smoking status: Never Passive exposure: Never Smokeless tobacco: Never Vaping Use Vaping status: Never Used Substance and Sexual Activity Alcohol use: No Drug use: Yes Types: Marijuana Sexual activity: Defer Ally Jeffers APRN 06/25/25 3572 Cosigned by Vuaghn Hartman MD at 06/25/2025 11:33 PM EDT Associated attestation - Vaughn Hartman MD - 06/25/2025 11:33 PM EDT SHARED APC FACE TO FACE: I performed a substantive part of the MDM during the patient's E/M visit. I personally evaluated and examined the patient. I personally made or approved the documented management plan and acknowledge its risk of complications. , My independent interpretation of the data: CBC significant for white blood cell count 10,000 without left shift.., and I personally discussed management/interpretation of the data with: Emergency department pharmacist to determine best antibiotic choices. Medical Decision Making includes a differential of cellulitis versus chronic erythema left lower extremity versus osteomyelitis, etc. Vaughn Hartman MD 06/25/2025 23:32 EDT documented in this encounter Miscellaneous Notes * Case Management/Social Work - Nika Barfield RN - 08/02/2025 11:40 AM EST Continued Stay Note [facility] Patient Name: Trung Pool Today's Date: 08/02/2025 Admit Date: 06/25/2025 Plan: Home w/Home Health Discharge Plan Row Name 08/02/25 1137 Plan Plan Home w/Home Health Patient/Family in Agreement with Plan yes Plan Comments Patient's discharge was held yesterday due to ambulance not being able to pick him until after midnight. Transportation requested for today, 08/02. Patient's discharge plan remains the same. Final Discharge Disposition Code 06 - home with home health care Discharge Codes No documentation. Expected Discharge Date and Time Expected Discharge Date Expected Discharge Time Aug 02, 2025 Nika Barfield RN * Case Management/Social Work - Dorene Gonzalez MSW - 08/01/2025 3:42 PM EST Continued Stay Note [facility] Patient Name: Trung Pool Today's Date: 08/01/2025 Admit Date: 06/25/2025 Plan: DERMATOLOGY TECHNICIAN: sumbitted APS report Discharge Plan Row Name 08/01/25 1541 Plan Plan DERMATOLOGY TECHNICIAN: sumbitted APS report Plan Comments DERMATOLOGY TECHNICIAN made an APS report due to State Regulations: Safety concerns discharging home alone (as patient has requested vs SNF). The Web Tracking # for this report is: Web Id # [id number]. Update 08/06: At this time, the report submitted DOES NOT meet acceptance criteria for further assessment and will NOT be assigned to a high school social studies teacher/staff. Discharge Codes No documentation. Expected Discharge Date and Time Expected Discharge Date Expected Discharge Time Aug 01, 2025 ABBEY Marinelli (Kay) * Case Management/Social Work - Nika Barfiedl RN - 08/01/2025 12:30 PM EST Case Management Discharge Note Final Note: Spoke with patient in room. His plan is to go home with home health and waiver servicestoday. He is current with [facility]. Orders for PT, OT and intermediate/discharge summary faxed to them at [phone]. Notified them that patient would be discharging today.Notified patient's community affairs director Susie ([phone]) that patient would be discharging. Attempted to notify patient's sister, Zhane by phone. No answer. Left message on machine. [facility] ambulance will transport. Transportation can be requested once patient is ready for discharge. PCS on chartlet. Offered patient EMS DNR. He refused to sign. Patient states that his neighbor, Amanda Zamorano ) will be there when he arrives. Spoke with Amanda. She states that patient's sister has appointments today, but she will let her know. No other needs voiced. Selected Continued Care - Admitted Since 06/25/2025 Destination No services have been selected for the patient. Durable Medical Equipment No services have been selected for the patient. Dialysis/Infusion No services have been selected for the patient. Home Medical Care Service Provider Services Address Phone Fax Patient Preferred [facility] Home Rehabilitation, Home Nursing [address] [place] [address], [facility] [address] [address] [phone] -- Therapy No services have been selected for the patient. Community & DME No services have been selected for the patient. Selected Continued Care - Prior Encounters Includes continued care and service providers with selected services from prior encounters from 03/27/2025 to 08/01/2025 Discharged on 06/11/2025 Admission date: 06/02/2025 - Discharge disposition: Home- Health Care [facility] Care Service Provider Services Address Phone Fax Patient Preferred [facility] [address] [address] [phone] -- Community Resources No active community resources. Transportation Services Transportation: Ambulance Ambulance: [facility] Final Discharge Disposition Code: 06 - home with home health care * Therapy Wound Care Treatment - Duglas Mayes, PT - 07/27/2025 3:04 PM EST Images from the original note were not included. Acute Care - Wound/Debridement Treatment Note [facility] Patient Name: Trung Pool : 1955 Today's Date: 07/27/2025 Admit Date: 06/25/2025 Visit Dx: ICD-10-CM ICD-9-CM 1. Cellulitis of left lower extremity L03.116 682.6 2. Hematuria, unspecified type R31.9 599.70 3. Urinary tract infection associated with indwelling urethral catheter, initial encounter T83.196I472.64 N39.0 599.0 4. Diarrhea, unspecified type R19.7 787.91 5. PAD (peripheral artery disease) I73.9 443.9 6. Wound infection T14.8XXA 958.3 L08.9 7. Critical limb ischemia of left lower extremity I70.222 440.22 Patient Active Problem List Diagnosis Acute deep [...] traumatic brain injury Possible meningioma Moderate malnutrition Seizure disorder Adrenal insufficiency Dysphagia Pressure injury of buttock, stage 1 Pressure ulcers of skin of multiple topographic sites Cellulitis of left foot Gangrene History of DVT (deep vein thrombosis) Severe sepsis Hx of migraine headaches Coronary artery disease involving [place] coronary artery of [place] heart without angina pectoris Left leg cellulitis Altered mental status PAD (peripheral artery disease) Wound infection Type 2 diabetes mellitus with diabetic peripheral angiopathy without gangrene, without long-term current use of insulin Mixed hyperlipidemia S/P AKA (above knee amputation), right CHARLIE (acute kidney injury) Type 2 diabetes mellitus, with long-term current use of insulin Arteriovenous fistula, acquired Cellulitis Acute UTI (urinary tract infection) Diarrhea of presumed infectious origin Acute on chronic blood loss anemia BPH without obstruction/lower urinary tract symptoms GERD without esophagitis Bilateral inguinal hernia Gastroenteritis due to norovirus Past Medical History: Diagnosis Date Anemia Cellulitis Diabetes mellitus Frequent falls History of DVT (deep vein thrombosis) Hyperlipidemia Hypertension Migraines Myocardial infarction Peripheral neuropathy Pneumonia Spinal stenosis Wears dentures FULL Wears glasses Past Surgical History: Procedure Laterality Date ABOVE KNEE AMPUTATION Right AMPUTATION DIGIT Left 01/28/2024 Procedure: SECOND AND THIRD TOE AMPUTATION LEFT; Surgeon: Cecil Buenrostro Jr., MD; Location: [facility]; Service: Orthopedics; Laterality: Left; ANTERIOR CERVICAL DISCECTOMY W/ FUSION Bilateral 07/17/2020 Procedure: Cervical discectomy anterior with fusion C3-4; Surgeon: Tyree Tan MD; Location: [facility]; Service: Neurosurgery; Laterality: Bilateral; AORTOGRAM N/A 01/26/2024 Procedure: ABDOMINAL AORTIC ANGIOGRAM, LLE ANGIOGRAM, LEFT ANTERIOR TIBIAL ATHERECTOMY, LEFT ANTERIOR TIBIAL ANGIOPLASTY; Surgeon: Archie Olvera MD; Location: [facility]; Service: Vascular; Laterality: N/A; CONTRAST: 50 ML, FT: 2 MIN 54 SEC, DOSE: 66 MGY. AORTOGRAM Left 07/03/2025 Procedure: ARTERIOGRAM LOWER EXTREMITY; Surgeon: Vaughn Hollingsworth DO; Location: [facility]; Service: Vascular; Laterality: Left; FT-6MINS 24SEC 140 MGY CONTRAST -15ML BACK SURGERY FOR DISC HERNIATION CARDIAC CATHETERIZATION CARDIAC CATHETERIZATION N/A 09/04/2024 Procedure: Peripheral angiography - Left lower extremity angio - Right femoral access; Surgeon: Jared Marcano MD; Location: [facility]; Service: Peripheral Vascular; Laterality: N/A; CORONARY ANGIOPLASTY WITH STENT PLACEMENT stent x 1 INCISION AND DRAINAGE FOOT Left 06/17/2023 Procedure: LEFT FOOT DEBRIDEMENT WOUND VACUUM ASSISTED CLOSURE; Surgeon: Cecil Buenrostro Jr., MD;Location: [facility]; Service: Orthopedics; Laterality: Left; INCISION AND DRAINAGE LEG Left 07/25/2023 Procedure: INCISION AND DRAINAGE HEEL, WOUND VAC; Surgeon: Cecil Buenrostro Jr., MD; Location: [facility]; Service: Orthopedics; Laterality: Left; INCISION AND DRAINAGE LEG Left 07/03/2025 Procedure: DEBRIDEMENT WOUND, PLACEMENT OF WOUND VAC; Surgeon: Vaughn Hollingsworth DO; Location: [facility]; Service: Vascular; Laterality: Left; INTERVENTIONAL RADIOLOGY PROCEDURE N/A 05/02/2019 Procedure: IVC FILTER PLACEMENT; Surgeon: Pedro Zapien MD; Location: [facility]; Service: Interventional Radiology INTERVENTIONAL RADIOLOGY PROCEDURE Left 09/07/2024 Procedure: LEFT peroneal arteriovenous fistula embolization - Right femoral access; Surgeon: Jared Marcano MD; Location: [facility] LOCATION; Service: Cardiovascular; Laterality: Left; Please coordinate with Gautam Patel ([facility]) [phone] who will bring coils LUMBAR DISCECTOMY N/A 05/03/2019 Procedure: THORACIC LAMINECTOMY T11-12; Surgeon: Tyree Tan MD; Location: [facility]; Service: Neurosurgery Wound 01/28/24 Left anterior second toe Incision (Active) Dressing Appearance intact;moist drainage 07/27/25 144 Dressing Removed Type foam 07/27/25 144 Confirmed Empty Wound Bed Yes, visual inspection of wound bed 07/27/251444 Closure Unable to assess 07/26/251944 Base moist;pink;red;slough 07/27/25 144 Periwound intact;dry 07/27/25 144 Periwound Temperature warm 07/27/25 144 Periwound Skin Turgor soft 07/27/25 144 Edges irregular 07/27/25 144 Drainage Characteristics/Odor serosanguineous 07/27/25 144 Drainage Amount scant 07/27/25 144 Care, Wound irrigated with;wound cleanser;debrided 07/27/25 144 Dressing Care dressing changed;foam;low-adherent;silver impregnated 07/27/25 144 Periwound Care cleansed with pH balanced cleanser 07/27/25 144 Wound Left posterior heel (Active) Dressing Appearance intact 07/27/25 144 Dressing Removed Type foam;silver impregnated 07/27/25 144 Confirmed Empty Wound Bed Yes, visual inspection of wound bed 07/27/25 144 Closure Unable to assess 07/26/251944 Base moist;pink 07/27/251444 Periwound intact;dry 07/27/25 144 Periwound Temperature warm 07/27/25 1445 Periwound Skin Turgor soft 07/27/25 1445 Drainage Characteristics/Odor serosanguineous 07/27/25 144 Drainage Amount scant 07/27/25 144 Care, Wound irrigated with;wound cleanser;debrided 07/27/25 1445 Dressing Care foam;low-adherent;silver impregnated 07/27/25 1445 Periwound Care cleansed with pH balanced cleanser 07/27/25 144 Wound 06/26/25 0150 Left medial coccyx Pressure Injury (Active) Dressing Appearance open to air 07/26/251944 Closure Open to air 07/26/25 1800 Base maroon/purple;moist;red 07/26/251944 Drainage Amount none 07/26/251944 Dressing Care silicone border foam 07/26/251944 Periwound Care dry periwound area maintained 07/26/251944 Wound 06/26/25 0150 Left posterior greater trochanter Pressure Injury (Active) Dressing Appearance open to air 07/26/251944 Closure Open to air 07/26/251944 Base moist;pink;red 07/26/251944 Periwound excoriated 07/26/251944 Drainage Amount none 07/26/251944 Periwound Care dry periwound area maintained 07/26/251944 Wound 06/26/25 015 Right posterior greater trochanter Pressure Injury (Active) Dressing Appearance open to air 07/26/251944 Closure Open to air 07/26/251944 Base moist;pink;red 07/26/251944 Periwound excoriated 07/26/251944 Drainage Amount none 07/26/251944 Periwound Care dry periwound area maintained 07/26/251944 Wound 07/24/25 191 Right posterior elbow Other (Comment) (Active) Dressing Appearance open to air 07/26/251944 Closure Adhesive bandage 07/26/251944 Base unable to visualize 07/26/25 1800 Periwound Care dry periwound area maintained 07/26/251944 WOUND DEBRIDEMENT Total area of Debridement: ~10cm2 Debridement Site 1 Location- Site 1: LLE Selective Debridement- Site 1: Wound Surface <20cmsq Instruments- Site 1: tweezers Excised Tissue Description- Site 1: minimum, slough Bleeding- Site 1: none PT Assessment (Last 12 Hours) PT Evaluation and Treatment Row Name 07/27/25 1443 Physical Therapy Time and Intention Subjective Information complains of;weakness;fatigue -MF Document Type therapy note (daily note);wound care -MF Mode of Treatment individual therapy;physical therapy - Row Name 07/27/25 1447 Pain Scale: FACES Pre/Post-Treatment Pain: FACES Scale, Pretreatment 0-->no hurt -MF Posttreatment Pain Rating 0-->no hurt -MF Row Name Wound 06/26/25 0150 Left medial coccyx Pressure Injury Wound - Properties Group Placement Date: 06/26/25 Placement Time: 0150 -EW Present on Original Admission: Y -EW Side: Left -EW Orientation: medial -EW Location: coccyx -EW Primary Wound Type: Pressure Inj -EW Retired Wound - Properties Group Placement Date: 06/26/25 Placement Time: 0150 -EW Present on Original Admission: Y -EW Side: Left -EW Orientation: medial -EW Location: coccyx -EW Retired Wound - Properties Group Placement Date: 06/26/25 Placement Time: 0150 -EW Present on Original Admission: Y -EW Side: Left -EW Orientation: medial -EW Location: coccyx -EW Retired Wound - Properties Group Date first assessed: 06/26/25 Time first assessed: 0150 -EW Present on Original Admission: Y -EW Side: Left -EW Location: coccyx -EW Row Name Wound 06/26/25 0150 Left posterior greater trochanter Pressure Injury Wound - Properties Group Placement Date: 06/26/25 Placement Time: 0150 -EW Present on Original Admission: Y -EW Side: Left -EW Orientation: posterior -EW Location: greater trochanter -EW Primary Wound Type: Pressure Inj -EW Retired Wound - Properties Group Placement Date: 06/26/25 Placement Time: 0150 -EW Present on Original Admission: Y -EW Side: Left -EW Orientation: posterior -EW Location: greater trochanter -EW Retired Wound - Properties Group Placement Date: 06/26/25 Placement Time: 0150 -EW Present on Original Admission: Y -EW Side: Left -EW Orientation: posterior -EW Location: greater trochanter -EW Retired Wound - Properties Group Date first assessed: 06/26/25 Time first assessed: 0150 -EW Present on Original Admission: Y -EW Side: Left -EW Location: greater trochanter -EW Row Name Wound 06/26/25 0150 Right posterior greater trochanter Pressure Injury Wound - Properties Group Placement Date: 06/26/25 Placement Time: 0150 -EW Present on Original Admission: Y -EW Side: Right -EW Orientation: posterior -EW Location: greater trochanter -EW PrimaryWound Type: Pressure Inj -EW Retired Wound - Properties Group Placement Date: 06/26/25 Placement Time: 0150 -EW Present on Original Admission: Y -EW Side: Right -EW Orientation: posterior -EW Location: greater trochanter -EW Retired Wound - Properties Group Placement Date: 06/26/25 Placement Time: 149 Present on Original Admission: Y -EW Side: Right -EW Orientation: posterior -EW Location: greater trochanter -EW Retired Wound - Properties Group Date first assessed: 06/26/25 Time first assessed: 149 Present on Original Admission: Y -EW Side: Right -EW Location: greater trochanter -EW Row Name 07/27/25 1445 Wound Left posterior heel Wound - Properties Group Present on Original Admission: Y -MR Side: Left -MR Orientation: posterior-MR Location: heel -MR Primary Wound Type: Pressure inj -MR Dressing Appearance intact -MF Dressing Removed Type foam;silver impregnated -MF Confirmed Empty Wound Bed Yes, visual inspection of wound bed -MF Base moist;pink -MF Periwound intact;dry -MF Periwound Temperature warm -MF Periwound Skin Turgor soft -MF Drainage Characteristics/Odor serosanguineous -MF Drainage Amount scant -MF Care, Wound irrigated with;wound cleanser;debrided nonsel jd -MF Dressing Care foam;low-adherent;silver impregnated -MF Periwound Care cleansed with pH balanced cleanser -MF Retired Wound - Properties Group Present on Original Admission: Y -MR Side: Left -MR Orientation: posterior -MR Location: heel -MR Primary Wound Type: Pressure inj -MR Retired Wound - Properties Group Present on Original Admission: Y -MR Side: Left -MR Orientation: posterior -MR Location: heel -MR Primary Wound Type: Pressure inj -MR Retired Wound - Properties Group Present on Original Admission: Y -MR Side: Left -MR Location: heel-MR Primary Wound Type: Pressure inj -MR Row Name 07/27/25 1445 Wound 01/28/24 Left anterior second toe Incision Wound - Properties Group Placement Date: 01/28/24 -MJ Present on Original Admission: N -MJ Side: Left -MJ Orientation: anterior -MJ Location: second toe - MJ Primary Wound Type: Incision -MJ Dressing Appearance intact;moist drainage -MF Dressing Removed Type foam -MF Confirmed Empty Wound Bed Yes, visual inspection of wound bed -MF Base moist;pink;red;slough -MF Periwound intact;dry -MF Periwound Temperature warm -MF Periwound Skin Turgor soft -MF Edges irregular -MF Drainage Characteristics/Odor serosanguineous -MF Drainage Amount scant -MF Care, Wound irrigated with;wound cleanser;debrided nonsel jd with gauze -MF Dressing Care dressing changed;foam;low-adherent;silver impregnated -MF Periwound Care cleansed with pH balanced cleanser -MF Retired Wound - Properties Group Placement Date: 01/28/24 -MJ Present on Original Admission: N -MJ Side: Left -MJ Orientation: anterior -MJ Location: second toe -MJ Primary Wound Type: Incision -MJ Retired Wound - Properties Group Placement Date: 01/28/24 -MJ Present on Original Admission: N -MJ Side: Left -MJ Orientation: anterior -MJ Location: second toe -MJ Primary Wound Type: Incision -MJ Retired Wound - Properties Group Date first assessed: 01/28/24 -MJ Present on Original Admission: N-MJ Side: Left -MJ Location: second toe -MJ Primary Wound Type: Incision -MJ Row Name Wound 07/24/251910 Right posterior elbow Other (Comment) Wound - Properties Group Placement Date: 07/24/25 -SB Placement Time: 1910 -SB Present on Original Admission: N -SB Side: Right -SB Orientation: posterior -SB Location: elbow -SB Primary Wound Type: Other -SB Secondary Wound Type - Other: -- -SB, SKIN TEAR Additional Comments: SKIN TEAR from rubbing his arm on the mattress while confused. -SB Retired Wound - Properties Group Placement Date: 07/24/25 -SB Placement Time: 1910 -SB Present on Original Admission: N -SB Side: Right -SB Orientation: posterior -SB Location: elbow -SB Additional Comments: SKIN TEAR from rubbing his arm on the mattress while confused. -SB Retired Wound - Properties Group Placement Date: 07/24/25 -SB Placement Time: 1910 -SB Present on Original Admission: N -SB Side: Right -SB Orientation: posterior -SB Location: elbow -SB Additional Comments: SKIN TEAR from rubbing his arm on the mattress while confused. -SB Retired Wound - Properties Group Date first assessed: 07/24/25 -SB Time first assessed: 1910 -SB Present on Original Admission: N -SB Side: Right -SB Location: elbow -SB Additional Comments: SKIN TEAR from rubbing his arm on the mattress while confused. -SB Row Name NPWT (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 Wound Therapy) 07/03/25 LEFT FOOT NPWT (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 Wound Therapy) - Properties Group Placement Date: 07/03/25 -RS Location: LEFT FOOT -RS Additional Comments: PER MD CLARKE REYNOSO 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) - Properties Group Placement Date: 07/03/25 -RS Location: LEFT FOOT -RS Additional Comments: PER MD CLARKE REYNOSO 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) - Properties Group Placement Date: 07/03/25 -RS Location: LEFT FOOT -RS Additional Comments: PER MD CLARKE REYNOSO 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) - Properties Group Placement Date: 07/03/25 -RS Location: LEFT FOOT -RS Additional Comments: PER MD CLARKE REYNOSO Row Name 07/27/25 1445 Coping Observed Emotional State calm;cooperative - Verbalized Emotional State acceptance - Trust Relationship/Rapport care explained - Row Name 07/27/25 1445 Plan of Care Review Plan of Care Reviewed With patient -MF Outcome Evaluation foot and heel wound dressings changed with good improvement noted overall. mild reepithelialization of wound edges noted today with dressin change. PT will cont with mepilex Ag foam changes every 3-4 days to help further improve healing potential, while limiting discomfort. - Row Name 07/27/25 1445 Positioning and Restraints Pre-Treatment Position in bed - Post Treatment Position bed -MF In Bed sitting EOB;call light within reach - User Llanes (r) = Recorded By, (t) = Taken By, (c) = Cosigned By Initials Name Provider Type MF Duglas Mayes, PT Physical Therapist MR Margarita Charles RN Registered Nurse Kristan Giordano RN Registered Nurse Henrietta Blakely RN Registered Nurse Iggy Thakur RN Registered Nurse Alessandra Whitaker, JESSEE Registered Nurse Physical Therapy Education Title: PT OT HOMICIDE INVESTIGATOR Therapies (In Progress) Topic: Physical Therapy (In Progress) Point: Mobility training (In Progress) Learning Progress Summary Patient Acceptance, E,TB, NR,NL by at 07/21/2025 1009 Acceptance, E,TB, NR,VU by at 07/20/2025 1000 Acceptance, E, NR by KG at 07/18/2025 1520 Acceptance, E, VU by IG at 07/13/2025 1457 Comment: PT POC Acceptance, E, VU by IG at 07/10/2025 1532 Comment: PT POC Acceptance, E, VU by IG at 07/05/2025 1624 Comment: PT POC Acceptance, E, VU,NR by ML at 06/29/2025 0907 Acceptance, E, VU,NR by NS at 06/26/2025 1618 Point: Home exercise program (In Progress) Learning Progress Summary Patient Acceptance, E,TB, NR,NL by CH at 07/21/2025 1009 Acceptance, E,TB, NR,VU by CH at 07/20/2025 1000 Acceptance, E, NR by KG at 07/18/2025 1520 Acceptance, E, VU by IG at 07/13/2025 1457 Comment: PT POC Acceptance, E, VU by IG at 07/10/2025 1532 Comment: PT POC Acceptance, E, VU by IG at 07/05/2025 1624 Comment: PT POC Acceptance, E, VU,NR by NS at 06/26/2025 1618 Point: Body mechanics (In Progress) Learning Progress Summary Patient Acceptance, E,TB, NR,NL by CH at 07/21/2025 1009 Acceptance, E,TB, NR,VU by CH at 07/20/2025 1000 Acceptance, E, NR by KG at 07/18/2025 1520 Acceptance, E, VU by IG at 07/13/2025 1457 Comment: PT POC Acceptance, E, VU by IG at 07/10/2025 1532 Comment: PT POC Acceptance, E, VU by IG at 07/05/2025 1624 Comment: PT POC Acceptance, E, VU,NR by NS at 06/26/2025 1618 Point: Precautions (In Progress) Learning Progress Summary Patient Acceptance, E,TB, NR,NL by CH at 07/21/2025 1009 Acceptance, E,TB, NR,VU by CH at 07/20/2025 1000 Acceptance, E, NR by KG at 07/18/2025 1520 Acceptance, E, VU by IG at 07/13/2025 1457 Comment: PT POC Acceptance, E, VU by IG at 07/10/2025 1532 Comment: PT POC Acceptance, E, VU by IG at 07/05/2025 1624 Comment: PT POC Acceptance, E, VU,NR by ML at 06/29/2025 0907 Acceptance, E, VU,NR by NS at 06/26/2025 1618 User Llanes Initials Effective Dates Name Provider Type Discipline 02/26/21 - Shital Costa RN Registered Nurse Nurse KG 08/25/24 - Lori Rajan Physical Therapist PT NS 02/26/21 - Mirela Hsu, MARY Physical Therapist PT ML 01/02/21 - Leonie Thomas Physical Therapist PT IG 04/19/25 - Hayden Matias, PT Physical Therapist PT Recommendation and Plan Recommended discharge disposition is based on the functional assessment performed by PT/OT/Speech therapy (as applicable) and may not reflect the medical necessity determined by your provider or services covered by an individual patient's insurance plan or patient resource. Anticipated Discharge Disposition (PT): inpatient rehabilitation facility Planned Therapy Interventions (PT): balance training, bed mobility training, patient/family education, postural re-education, strengthening, transfer training Therapy Frequency (PT): daily Plan of Care Reviewed With: patient Outcome Evaluation: foot and heel wound dressings changed with good improvement noted overall. mildreepithelialization of wound edges noted today with dressin change. PT will cont with mepilex Ag foam changes every 3-4 days to help further improve healing potential, while limiting discomfort. Plan of Care Reviewed With: patient Time Calculation PT Charges Row Name 07/27/25 1445 Time Calculation Start Time 1445 -MF PT Goal Re-Cert Due Date 08/04/25 -MF Untimed Charges Wound Care 22073 Non-selective debridement -MF [id number] debridement 20 -MF Total Minutes Untimed Charges Total Minutes 20 -MF Total Minutes 20 -MF User Llanes (r) = Recorded By, (t) = Taken By, (c) = Cosigned By Initials Name Provider Type Duglas Pathak, PT Physical Therapist PT G-Codes Outcome Measure Options: AM-PAC 6 Clicks Daily Activity (OT) AM-PAC 6 Clicks Score (PT): 11 AM-PAC 6 Clicks Score (OT): 16 Duglas Mayes, PT 07/27/2025 * Case Management/Social Work - Monalisa Reilly RN - 07/27/2025 12:48 PM EST Continued Stay Note [facility] Patient Name: Trung Pool Today's Date: 07/27/2025 Admit Date: 06/25/2025 Plan: LTC with hospice Discharge Plan Row Name 07/27/25 1239 Plan Plan LTC with hospice Plan Comments Discussed Mr Pool in MDR. Mr Pool is doing better, and is more oriented today. He is taking his medication. I stopped and spoke with his sister Zhane outside of the room. I explained to Zhane the options listed, and brought up the fact that [facility] is not in network with hisinsurance, therefore he would have to pay out of pocket for the room. Stacey, hospice home health aide, was also speaking with Zhane at the same time I was, and we both explained how the process works. I havecalled and left a voicemail for Juani, nayeli at [facility] to discuss this. Zhane states that she would also be interested in [facility] in [place], [place]. I have called and spoken with ad missions at [facility] in [place], and I have faxed over a new referral to them. I have also faxed over another referral to [facility]. Case management will continue to follow. Final Discharge Disposition Code 04 - intermediate care facility Row Name 07/27/25 1226 Plan Plan retirement care Plan Comments Upon arrival to pt's room, nurse outreach case manager Monalisa and pt's sister Zhane outside pt's room. Monalisa informed the sister that [facility], the pt's first choice for lobsterman care, does not take pt's insurance. Monalisa informed Zhane will continue to search for other facilities close to [facility]. liaison planner will continue to follow while placement is found. Please call [phone] if can be of further assistance. Discharge Codes No documentation. Expected Discharge Date and Time Expected Discharge Date Expected Discharge Time Jul 30, 2025 Monalisa Reilly RN * Significant Note - Shara Bermudez APRN - 07/25/2025 1:33 PM EST Provider notified patient is comfort measures only. General neurology will see patient on request -Shara Bermudez APRN * Therapy Wound Care Treatment - Duglas Mayes, PT - 07/25/2025 11:18 AM EST Images from the original note were not included. Acute Care - Wound/Debridement Treatment Note [facility] Patient Name: Trung Pool : 1955 Today's Date: 07/25/2025 Admit Date: 06/25/2025 Visit Dx: ICD-10-CM ICD-9-CM 1. Cellulitis of left lower extremity L03.116 682.6 2. Hematuria, unspecified type R31.9 599.70 3. Urinary tract infection associated with indwelling urethral catheter, initial encounter T83.152P790.64 N39.0 599.0 4. Diarrhea, unspecified type R19.7 787.91 5. PAD (peripheral artery disease) I73.9 443.9 6. Wound infection T14.8XXA 958.3 L08.9 7. Critical limb ischemia of left lower extremity I70.222 440.22 Patient Active Problem List Diagnosis Acute deep [...] traumatic brain injury Possible meningioma Moderate malnutrition Seizure disorder Adrenal insufficiency Dysphagia Pressure injury of buttock, stage 1 Pressure ulcers of skin of multiple topographic sites Cellulitis of left foot Gangrene History of DVT (deep vein thrombosis) Severe sepsis Hx of migraine headaches Coronary artery disease involving [place] coronary artery of [place] heart without angina pectoris Left leg cellulitis Altered mental status PAD (peripheral artery disease) Wound infection Type 2 diabetes mellitus with diabetic peripheral angiopathy without gangrene, without long-term current use of insulin Mixed hyperlipidemia S/P AKA (above knee amputation), right CHARLIE (acute kidney injury) Type 2 diabetes mellitus, with long-term current use of insulin Arteriovenous fistula, acquired Cellulitis Acute UTI (urinary tract infection) Diarrhea of presumed infectious origin Acute on chronic blood loss anemia BPH without obstruction/lower urinary tract symptoms GERD without esophagitis Bilateral inguinal hernia Gastroenteritis due to norovirus Past Medical History: Diagnosis Date Anemia Cellulitis Diabetes mellitus Frequent falls History of DVT (deep vein thrombosis) Hyperlipidemia Hypertension Migraines Myocardial infarction Peripheral neuropathy Pneumonia Spinal stenosis Wears dentures FULL Wears glasses Past Surgical History: Procedure Laterality Date ABOVE KNEE AMPUTATION Right AMPUTATION DIGIT Left 01/28/2024 Procedure: SECOND AND THIRD TOE AMPUTATION LEFT; Surgeon: Cecil Buenrostro Jr., MD; Location: [facility]; Service: Orthopedics; Laterality: Left; ANTERIOR CERVICAL DISCECTOMY W/ FUSION Bilateral 07/17/2020 Procedure: Cervical discectomy anterior with fusion C3-4; Surgeon: Tyree Tan MD; Location:[facility]; Service: Neurosurgery; Laterality: Bilateral; AORTOGRAM N/A 01/26/2024 Procedure: ABDOMINAL AORTIC ANGIOGRAM, LLE ANGIOGRAM, LEFT ANTERIOR TIBIAL ATHERECTOMY, LEFT ANTERIOR TIBIAL ANGIOPLASTY; Surgeon: Archie Olvera MD; Location: [facility]; Service: Vascular; Laterality: N/A; CONTRAST: 50 ML, FT: 2 MIN 54 SEC, DOSE: 66 MGY. AORTOGRAM Left 07/03/2025 Procedure: ARTERIOGRAM LOWER EXTREMITY; Surgeon: Vaughn Hollingsworth DO; Location: [facility]; Service: Vascular; Laterality: Left; FT-6MINS 24SEC 140 MGY CONTRAST -15ML BACK SURGERY FOR DISC HERNIATION CARDIAC CATHETERIZATION CARDIAC CATHETERIZATION N/A 09/04/2024 Procedure: Peripheral angiography - Left lower extremity angio - Right femoral access; Surgeon: Jared Marcano MD; Location: [facility]; Service: Peripheral Vascular; Laterality: [...] Location: [facility]; Service: Orthopedics; Laterality: Left; INCISION AND DRAINAGE LEG Left 07/03/2025 Procedure: DEBRIDEMENT WOUND, PLACEMENT OF WOUND VAC; Surgeon: Vaughn Hollingsworth DO; Location: [facility]; Service: Vascular; Laterality: Left; INTERVENTIONAL RADIOLOGY PROCEDURE N/A 05/02/2019 Procedure: IVC FILTER PLACEMENT; Surgeon: Pedro Zapien MD; Location: [facility]; Service: Interventional Radiology INTERVENTIONAL RADIOLOGY PROCEDURE Left 09/07/2024 Procedure: LEFT peroneal arteriovenous fistula embolization - Right femoral access; Surgeon: Jared Marcano MD; Location: [facility]; Service: Cardiovascular; Laterality: Left; Please coordinate with [facility] [phone] who will bring coils LUMBAR DISCECTOMY N/A 05/03/2019 Procedure: THORACIC LAMINECTOMY T11-12; Surgeon: Tyree Tan MD; Location: [facility]; Service: Neurosurgery Wound 01/28/24 Left anterior second toe Incision (Active) Dressing Appearance intact;moist drainage 07/25/25 1005 Dressing Removed Type foam;low-adherent;silver impregnated 07/25/25 1005 Confirmed Empty Wound Bed Yes, visual inspection of wound bed 07/25/25 100 Base moist;pink;red;slough 07/25/25 100 Periwound intact;dry 07/25/25 1005 Periwound Temperature warm 07/25/25 1005 Periwound Skin Turgor soft 07/25/25 1005 Edges irregular 07/25/25 1005 Wound Length (cm) 2.7 cm 07/25/25 1005 Wound Width (cm) 5.5 cm 07/25/25 1005 Wound Depth (cm) 0.1 cm 07/25/25 1005 Wound Surface Area (cm^2) 11.66 cm^2 07/25/25 1005 Wound Volume (cm^3) 0.778 cm^3 07/25/25 1005 Drainage Characteristics/Odor serosanguineous 07/25/25 1005 Drainage Amount small 07/25/25 1005 Care, Wound irrigated with;wound cleanser;debrided 07/25/25 1005 Dressing Care foam;low-adherent;silver impregnated 07/25/25 100 Periwound Care dry periwound area maintained 07/25/25 100 Wound Left posterior heel (Active) Dressing Appearance intact;moist drainage 07/25/25 100 Dressing Removed Type foam;low-adherent;silver impregnated 07/25/25 100 Confirmed Empty Wound Bed Yes, visual inspection of wound bed 07/25/251004 Closure Unable to assess 07/25/25 1000 Base moist;pink;red 07/25/251004 Periwound intact;dry 07/25/251004 Periwound Temperature warm 07/25/251004 Periwound Skin Turgor soft 07/25/251004 Edges irregular 07/25/25 1005 Wound Length (cm) 2 cm 07/25/251004 Wound Width (cm) 3 cm 07/25/25 1005 Wound Depth (cm) 0.1 cm 07/25/251004 Wound Surface Area (cm^2) 4.71 cm^2 07/25/25 1005 Wound Volume (cm^3) 0.314 cm^3 07/25/25 1005 Drainage Characteristics/Odor serosanguineous 07/25/251004 Drainage Amount scant 07/25/25 1005 Care, Wound irrigated with;wound cleanser;debrided 07/25/25 1005 Dressing Care foam;low-adherent;silver impregnated 07/25/25 100 Periwound Care dry periwound area maintained 07/25/25 1005 Wound 06/26/25 015 Left medial coccyx Pressure Injury (Active) Dressing Appearance open to air 07/24/25 1805 Closure Open to air 07/25/25 1000 Base moist;maroon/purple;red 07/25/25 1000 Periwound Care dry periwound area maintained 07/24/25 1805 Wound 06/26/25 0150 Left posterior greater trochanter Pressure Injury (Active) Dressing Appearance open to air 07/24/25 1805 Closure Open to air 07/25/25 1000 Base moist;pink;red 07/25/25 1000 Dressing Care silicone border foam 07/24/25 1805 Wound 06/26/25 0150 Right posterior greater trochanter Pressure Injury (Active) Dressing Appearance open to air 07/24/25 1805 Closure Open to air 07/25/25 1000 Base red;pink;moist 07/25/25 1000 Periwound Care dry periwound area maintained 07/24/25 1805 Wound 07/24/25 1911 Right posterior elbow Other (Comment) (Active) Closure Adhesive bandage 07/25/25 1000 Base unable to visualize 07/25/25 1000 NPWT (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 Wound Therapy) 07/03/25 LEFT FOOT (Active) Therapy Setting vacuum off 07/25/25 1005 WOUND DEBRIDEMENT Total area of Debridement: ~10cm2 Debridement Site 1 Location- Site 1: LLE Selective Debridement- Site 1: Wound Surface <20cmsq Instruments- Site 1: tweezers Excised Tissue Description- Site 1: minimum, slough Bleeding- Site 1: none PT Assessment (Last 12 Hours) PT Evaluation and Treatment Row Name 07/25/25 1000 Physical Therapy Time and Intention Subjective Information complains of;weakness;fatigue -MF Document Type therapy note (daily note);wound care -MF Mode of Treatment individual therapy;physical therapy - Row Name 07/25/25 1000 Pain Pretreatment Pain Rating 0/10 - no pain -MF Posttreatment Pain Rating 0/10 - no pain -MF Row Name Wound 06/26/25 0150 Left medial coccyx Pressure Injury Wound - Properties Group Placement Date: 06/26/25 Placement Time: 149 - Present on Original Admission: Y -EW Side: Left -EW Orientation: medial -EW Location: coccyx -EW Primary Wound Type: Pressure Inj -EW Retired Wound - Properties Group Placement Date: 06/26/25 Placement Time: 0 - Present on Original Admission: Y -EW Side: Left -EW Orientation: medial -EW Location: coccyx -EW Retired Wound - Properties Group Placement Date: 06/26/25 Placement Time: 149 - Present on Original Admission: Y -EW Side: Left -EW Orientation: medial -EW Location: coccyx -EW Retired Wound - Properties Group Date first assessed: 06/26/25 - Time first assessed: 0 - Present on Original Admission: Y -EW Side: Left -EW Location: coccyx -EW Row Name Wound 06/26/25 0150 Left posterior greater trochanter Pressure Injury Wound - Properties Group Placement Date: 06/26/25 Placement Time: 0150 -EW Present on Original Admission: Y -EW Side: Left -EW Orientation: posterior -EW Location: greater trochanter -EW Primary Wound Type: Pressure Inj -EW Retired Wound - Properties Group Placement Date: 06/26/25 Placement Time: 0150 -EW Present on Original Admission: Y -EW Side: Left -EW Orientation: posterior -EW Location: greater trochanter -EW Retired Wound - Properties Group Placement Date: 06/26/25 Placement Time: 0150 -EW Present on Original Admission: Y -EW Side: Left -EW Orientation: posterior -EW Location: greater trochanter -EW Retired Wound - Properties Group Date first assessed: 06/26/25 Time first assessed: 0150 -EW Present on Original Admission: Y -EW Side: Left -EW Location: greater trochanter -EW Row Name Wound 06/26/25 0150 Right posterior greater trochanter Pressure Injury Wound - Properties Group Placement Date: 06/26/25 Placement Time: 0150 -EW Present on Original Admission: Y -EW Side: Right -EW Orientation: posterior -EW Location: greater trochanter -EW PrimaryWound Type: Pressure Inj -EW Retired Wound - Properties Group Placement Date: 06/26/25 Placement Time: 0150 -EW Present on Original Admission: Y -EW Side: Right -EW Orientation: posterior -EW Location: greater trochanter -EW Retired Wound - Properties Group Placement Date: 06/26/25 Placement Time: 0150 -EW Present on Original Admission: Y -EW Side: Right -EW Orientation: posterior -EW Location: greater trochanter -EW Retired Wound - Properties Group Date first assessed: 06/26/25 Time first assessed: 0150 -EW Present on Original Admission: Y -EW Side: Right -EW Location: greater trochanter -EW Row Name 07/25/25 1005 Wound Left posterior heel Wound - Properties Group Present on Original Admission: Y -MR Side: Left -MR Orientation: posterior-MR Location: heel -MR Primary Wound Type: Pressure inj -MR Dressing Appearance intact;moist drainage -MF Dressing Removed Type foam;low-adherent;silver impregnated -MF Confirmed Empty Wound Bed Yes, visual inspection of wound bed -MF Base moist;pink;red -MF Periwound intact;dry -MF Periwound Temperature warm -MF Periwound Skin Turgor soft -MF Edges irregular -MF Wound Length (cm) 2 cm -MF Wound Width (cm) 3 cm -MF Wound Depth (cm) 0.1 cm -MF Wound Surface Area (cm^2) 4.71 cm^2 -MF Wound Volume (cm^3) 0.314 cm^3 -MF Drainage Characteristics/Odor serosanguineous -MF Drainage Amount scant -MF Care, Wound irrigated with;wound cleanser;debrided -MF Dressing Care foam;low-adherent;silver impregnated mepilex Ag foam -MF Periwound Care dry periwound area maintained -MF Retired Wound - Properties Group Present on Original Admission: Y -MR Side: Left -MR Orientation: posterior -MR Location: heel -MR Primary Wound Type: Pressure inj -MR Retired Wound - Properties Group Present on Original Admission: Y -MR Side: Left -MR Orientation: posterior -MR Location: heel -MR Primary Wound Type: Pressure inj -MR Retired Wound - Properties Group Present on Original Admission: Y -MR Side: Left -MR Location: heel-MR Primary Wound Type: Pressure inj -MR Row Name 07/25/25 1005 Wound 01/28/24 Left anterior second toe Incision Wound - Properties Group Placement Date: 01/28/24 -MJ Present on Original Admission: N -MJ Side: Left -MJ Orientation: anterior -MJ Location: second toe - MJ Primary Wound Type: Incision -MJ Dressing Appearance intact;moist drainage -MF Dressing Removed Type foam;low-adherent;silver impregnated - Confirmed Empty Wound Bed Yes, visual inspection of wound bed -MF Base moist;pink;red;slough -MF Periwound intact;dry -MF Periwound Temperature warm -MF Periwound Skin Turgor soft -MF Edges irregular -MF Wound Length (cm) 2.7 cm -MF Wound Width (cm) 5.5 cm -MF Wound Depth (cm) 0.1 cm -MF Wound Surface Area (cm^2) 11.66 cm^2 -MF Wound Volume (cm^3) 0.778 cm^3 -MF Drainage Characteristics/Odor serosanguineous -MF Drainage Amount small -MF Care, Wound irrigated with;wound cleanser;debrided -MF Dressing Care foam;low-adherent;silver impregnated mepilex Ag foam -MF Periwound Care dry periwound area maintained -MF Retired Wound - Properties Group Placement Date: 01/28/24 -MJ Present on Original Admission: N -MJ Side: Left -MJ Orientation: anterior -MJ Location: second toe -MJ Primary Wound Type: Incision -MJ Retired Wound - Properties Group Placement Date: 01/28/24 -MJ Present on Original Admission: N -MJ Side: Left -MJ Orientation: anterior -MJ Location: second toe -MJ Primary Wound Type: Incision -MJ Retired Wound - Properties Group Date first assessed: 01/28/24 -MJ Present on Original Admission: N-MJ Side: Left -MJ Location: second toe -MJ Primary Wound Type: Incision -MJ Row Name Wound 07/24/251910 Right posterior elbow Other (Comment) Wound - Properties Group Placement Date: 07/24/25 -SB Placement Time: 1910 -SB Present on Original Admission: N -SB Side: Right -SB Orientation: posterior -SB Location: elbow -SB Primary Wound Type: Other -SB Secondary Wound Type - Other: -- -SB, SKIN TEAR Additional Comments: SKIN TEAR from rubbing his arm on the mattress while confused. -SB Retired Wound - Properties Group Placement Date: 07/24/25 -SB Placement Time: 1910 -SB Present on Original Admission: N -SB Side: Right -SB Orientation: posterior -SB Location: elbow -SB Additional Comments: SKIN TEAR from rubbing his arm on the mattress while confused. -SB Retired Wound - Properties Group Placement Date: 07/24/25 -SB Placement Time: 1910 -SB Present on Original Admission: N -SB Side: Right -SB Orientation: posterior -SB Location: elbow -SB Additional Comments: SKIN TEAR from rubbing his arm on the mattress while confused. -SB Retired Wound - Properties Group Date first assessed: 07/24/25 -SB Time first assessed: 1910 -SB Present on Original Admission: N -SB Side: Right -SB Location: elbow -SB Additional Comments: SKIN TEAR from rubbing his arm on the mattress while confused. -SB Row Name 07/25/25 1005 NPWT (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 Wound Therapy) 07/03/25 LEFT FOOT NPWT (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 Wound Therapy) - Properties Group Placement Date: 07/03/25 -RS Location: LEFT FOOT -RS Additional Comments: PER MD CLARKE REYNOSO Therapy Setting vacuum off - 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) - Properties Group Placement Date: 07/03/25 -RS Location: LEFT FOOT -RS Additional Comments: PER MD CLARKE REYNOSO 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) - Properties Group Placement Date: 07/03/25 -RS Location: LEFT FOOT -RS Additional Comments: PER MD CLARKE REYNOSO 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) - Properties Group Placement Date: 07/03/25 -RS Location: LEFT FOOT -RS Additional Comments: PER MD CLARKE REYNOSO Row Name 07/25/25 1005 Coping Observed Emotional State frustrated - Verbalized Emotional State anger;hopelessness - Trust Relationship/Rapport care explained - Row Name 07/25/25 1005 Plan of Care Review Plan of Care Reviewed With patient - Outcome Evaluation LLE unna boot removed and dressings recovered with mepilex Ag foam and secured with kerlix and spandage to help limit discomfort and maintain a healthy wound bed. - Row Name 07/25/25 1005 Positioning and Restraints Pre-Treatment Position in bed - Post Treatment Position bed -MF In Bed supine;call light within reach;with family/caregiver - Row Name 07/25/25 1000 Wound Management Goal 1 (PT) Wound Management Goal (Wound Goal 1, PT) Decrease wound size by 10% as evidence of wound healing. - Time Frame (Wound Goal 1, PT) 1 week - Progress/Outcomes (Wound Goal 1, PT) goal ongoing - Row Name 07/25/25 1000 Wound Management Goal 2 (PT) Wound Management Goal (Wound Goal 2, PT) Decrease wound size by 15% as evidence of wound healing. - Time Frame (Wound Goal 2, PT) 2 weeks - Progress/Outcomes (Wound Goal 2, PT) goal ongoing - User Llanes (r) = Recorded By, (t) = Taken By, (c) = Cosigned By Initials Name Provider Type Duglas Mayes, PT Physical Therapist MR CharlesMargarita RN Registered Nurse Kristan Giordano RN Registered Nurse Henrietta Blakely, RN Registered Nurse Iggy Thakur RN Registered Nurse RS Alessandra Gregory, RN Registered Nurse Physical Therapy Education Title: PT OT HOMICIDE INVESTIGATOR Therapies (In Progress) Topic: Physical Therapy (In Progress) Point: Mobility training (In Progress) Learning Progress Summary Patient Acceptance, E,TB, NR,NL by at 07/21/2025 1009 Acceptance, E,TB, NR,VU by CH at 07/20/2025 1000 Acceptance, E, NR by KG at 07/18/2025 1520 Acceptance, E, VU by IG at 07/13/2025 1457 Comment: PT POC Acceptance, E, VU by IG at 07/10/2025 1532 Comment: PT POC Acceptance, E, VU by IG at 07/05/2025 1624 Comment: PT POC Acceptance, E, VU,NR by ML at 06/29/2025 0907 Acceptance, E, VU,NR by NS at 06/26/2025 1618 Point: Home exercise program (In Progress) Learning Progress Summary Patient Acceptance, E,TB, NR,NL by at 07/21/2025 1009 Acceptance, E,TB, NR,VU by CH at 07/20/2025 1000 Acceptance, E, NR by KG at 07/18/2025 1520 Acceptance, E, VU by IG at 07/13/2025 1457 Comment: PT POC Acceptance, E, VU by IG at 07/10/2025 1532 Comment: PT POC Acceptance, E, VU by IG at 07/05/2025 1624 Comment: PT POC Acceptance, E, VU,NR by NS at 06/26/2025 1618 Point: Body mechanics (In Progress) Learning Progress Summary Patient Acceptance, E,TB, NR,NL by at 07/21/2025 1009 Acceptance, E,TB, NR,VU by CH at 07/20/2025 1000 Acceptance, E, NR by KG at 07/18/2025 1520 Acceptance, E, VU by IG at 07/13/2025 1457 Comment: PT POC Acceptance, E, VU by IG at 07/10/2025 1532 Comment: PT POC Acceptance, E, VU by IG at 07/05/2025 1624 Comment: PT POC Acceptance, E, VU,NR by NS at 06/26/2025 1618 Point: Precautions (In Progress) Learning Progress Summary Patient Acceptance, E,TB, NR,NL by at 07/21/2025 1009 Acceptance, E,TB, NR,VU by at 07/20/2025 1000 Acceptance, E, NR by KG at 07/18/2025 1520 Acceptance, E, VU by IG at 07/13/2025 1457 Comment: PT POC Acceptance, E, VU by IG at 07/10/2025 1532 Comment: PT POC Acceptance, E, VU by IG at 07/05/2025 1624 Comment: PT POC Acceptance, E, VU,NR by ML at 06/29/2025 0907 Acceptance, E, VU,NR by NS at 06/26/2025 1618 User Llanes Initials Effective Dates Name Provider Type Discipline 02/26/21 - Shital Csota RN Registered Nurse Nurse KG 08/25/24 - Lori Rajan Physical Therapist PT NS 02/26/21 - Mirela Hsu, PT Physical Therapist PT ML 01/02/21 - Leonie Thomas Physical Therapist PT IG 04/19/25 - Hayden Matias, PT Physical Therapist PT Recommendation and Plan Recommended discharge disposition is based on the functional assessment performed by PT/OT/Speech therapy (as applicable) and may not reflect the medical necessity determined by your provider or services covered by an individual patient's insurance plan or patient resource. Anticipated Discharge Disposition (PT): inpatient rehabilitation facility Planned Therapy Interventions (PT): balance training, bed mobility training, patient/family education, postural re-education, strengthening, transfer training Therapy Frequency (PT): daily Plan of Care Reviewed With: patient Outcome Evaluation: LLE unna boot removed and dressings recovered with mepilex Ag foam and secured with kerlix and spandage to help limit discomfort and maintain a healthy wound bed. Plan of Care Reviewed With: patient Time Calculation PT Charges Row Name 07/25/25 1000 Time Calculation Start Time 1000 -MF PT Goal Re-Cert Due Date 08/04/25 -MF Untimed Charges 70838-Otzusyxyn debridement 25 -MF Total Minutes Untimed Charges Total Minutes 25 -MF Total Minutes 25 -MF User Llanes (r) = Recorded By, (t) = Taken By, (c) = Cosigned By Initials Name Provider Type Duglas Pathak, PT Physical Therapist PT G-Codes Outcome Measure Options: AM-PAC 6 Clicks Daily Activity (OT) AM-PAC 6 Clicks Score (PT): 8 AM-PAC 6 Clicks Score (OT): 16 Duglas Mayes, PT 07/25/2025 * Case Management/Social Work - Monalisa Reilly RN - 07/24/2025 12:58 PM EST Continued Stay Note [facility] Patient Name: Trung Pool Today's Date: 07/24/2025 Admit Date: 06/25/2025 Plan: To be determined Discharge Plan Row Name 07/24/25 1252 Plan Plan To be determined Plan Comments Discussed Mr Pool in MDR. Mr Pool is still confused and in restraints. He has been able to dislodge his IV. Dr Reynolds has spoken with [facility], and they are attempting to get in touch with Mr Pool's sister to discuss goals of care. Case management will continue to follow. Discharge Codes No documentation. Expected Discharge Date and Time Expected Discharge Date Expected Discharge Time Jul 23, 2025 Monalisa Reilly RN * Case Management/Social Work - Monalisa Reilly RN - 07/23/2025 2:47 PM EST Continued Stay Note [facility] Patient Name: Trung Pool Today's Date: 07/23/2025 Admit Date: 06/25/2025 Plan: To be determined Discharge Plan Row Name 07/23/25 1441 Plan Plan To be determined Plan Comments Discussed Mr Pool in MDR. Mr Pool has had increasing confusion and agitation, and hasrequired Geodon overnight. He ripped off his wound vac and ripped out his IV last night. This morning during rounds, his nurse stated that she was able to talk him into restarting his IV so that he can receive his IV antibiotics. Unfortunately this afternoon he has taken a turn for the worse, and is requiring bilateral wrist restraints. Of note, case management cannot make any referrals while Mr Pool is in wrist restraints as no intermediate facility will accept him. I did receive a phone call from Susie, Mr Pool's nurse outreach case manager from his insurance. Susie states that when Mr Pool does return home, he will receive the same aide that came to his house before. I have brought up the difficulty in discharge to Nazia, director of case management. There was some discussion regarding whether Mr Pool still has the mental capacity to make his own medical decisions, and I did advise that neurologyis following. Case management will continue to follow. Final Discharge Disposition Code 03 - intermediate facility (SNF) Discharge Codes No documentation. Expected Discharge Date and Time Expected Discharge Date Expected Discharge Time Jul 23, 2025 Monalisa Reilly RN * Therapy Wound Care Treatment - Duglas Mayes, PT - 07/22/2025 2:26 PM EST Images from the original note were not included. Acute Care - Wound/Debridement Treatment Note [facility] Patient Name: Trung Pool : 1955 Today's Date: 07/22/2025 Admit Date: 06/25/2025 Visit Dx: ICD-10-CM ICD-9-CM 1. Cellulitis of left lower extremity L03.116 682.6 2. Hematuria, unspecified type R31.9 599.70 3. Urinary tract infection associated with indwelling urethral catheter, initial encounter T83.286W540.64 N39.0 599.0 4. Diarrhea, unspecified type R19.7 787.91 5. PAD (peripheral artery disease) I73.9 443.9 6. Wound infection T14.8XXA 958.3 L08.9 7. Critical limb ischemia of left lower extremity I70.222 440.22 Patient Active Problem List Diagnosis Acute deep [...] traumatic brain injury Possible meningioma Moderate malnutrition Seizure disorder Adrenal insufficiency Dysphagia Pressure injury of buttock, stage 1 Pressure ulcers of skin of multiple topographic sites Cellulitis of left foot Gangrene History of DVT (deep vein thrombosis) Severe sepsis Hx of migraine headaches Coronary artery disease involving [place] coronary artery of [place] heart without angina pectoris Left leg cellulitis Altered mental status PAD (peripheral artery disease) Wound infection Type 2 diabetes mellitus with diabetic peripheral angiopathy without gangrene, without long-term current use of insulin Mixed hyperlipidemia S/P AKA (above knee amputation), right CHARLIE (acute kidney injury) Type 2 diabetes mellitus, with long-term current use of insulin Arteriovenous fistula, acquired Cellulitis Acute UTI (urinary tract infection) Diarrhea of presumed infectious origin Acute on chronic blood loss anemia BPH without obstruction/lower urinary tract symptoms GERD without esophagitis Bilateral inguinal hernia Gastroenteritis due to norovirus Past Medical History: Diagnosis Date Anemia Cellulitis Diabetes mellitus Frequent falls History of DVT (deep vein thrombosis) Hyperlipidemia Hypertension Migraines Myocardial infarction Peripheral neuropathy Pneumonia Spinal stenosis Wears dentures FULL Wears glasses Past Surgical History: Procedure Laterality Date ABOVE KNEE AMPUTATION Right AMPUTATION DIGIT Left 01/28/2024 Procedure: SECOND AND THIRD TOE AMPUTATION LEFT; Surgeon: Cecil Buenrostro Jr., MD; Location: [facility]; Service: Orthopedics; Laterality: Left; ANTERIOR CERVICAL DISCECTOMY W/ FUSION Bilateral 07/17/2020 Procedure: Cervical discectomy anterior with fusion C3-4; Surgeon: Tyree Tan MD; Location: [facility]; Service: Neurosurgery; Laterality: Bilateral; AORTOGRAM N/A 01/26/2024 Procedure: ABDOMINAL AORTIC ANGIOGRAM, LLE ANGIOGRAM, LEFT ANTERIOR TIBIAL ATHERECTOMY, LEFT ANTERIOR TIBIAL ANGIOPLASTY; Surgeon: Archie Olvera MD; Location: [facility]; Service: Vascular; Laterality: N/A; CONTRAST: 50 ML, FT: 2 MIN 54 SEC, DOSE: 66 MGY. AORTOGRAM Left 07/03/2025 Procedure: ARTERIOGRAM LOWER EXTREMITY; Surgeon: Vaughn Hollingsworth DO; Location: [facility]; Service: Vascular; Laterality: Left; FT-6MINS 24SEC 140 MGY CONTRAST -15ML BACK SURGERY FOR DISC HERNIATION CARDIAC CATHETERIZATION [...] ASSISTED CLOSURE; Surgeon: Cecil Buenrostro Jr., MD;Location: [facility]; Service: Orthopedics; Laterality: Left; INCISION AND DRAINAGE LEG Left 07/25/2023 Procedure: INCISION AND DRAINAGE HEEL, WOUND VAC; Surgeon: Cecil Buenrostro Jr., MD; Location: [facility]; Service: Orthopedics; Laterality: Left; INCISION AND DRAINAGE LEG Left 07/03/2025 Procedure: DEBRIDEMENT WOUND, PLACEMENT OF WOUND VAC; Surgeon: Vaughn Hollingsworth DO; Location: [facility]; Service: Vascular; Laterality: Left; INTERVENTIONAL RADIOLOGY PROCEDURE N/A 05/02/2019 Procedure: IVC FILTER PLACEMENT; Surgeon: Pedro Zapien MD; Location: [facility]; Service: Interventional Radiology INTERVENTIONAL RADIOLOGY PROCEDURE Left 09/07/2024 Procedure: LEFT peroneal arteriovenous fistula embolization - Right femoral access; Surgeon: Jared Marcano MD; Location: [facility]; Service: Cardiovascular; Laterality: Left; Please coordinate with Gautam Patel ([facility]) [phone] who will bring coils LUMBAR DISCECTOMY N/A 05/03/2019 Procedure: THORACIC LAMINECTOMY T11-12; Surgeon: Tyree Tan MD; Location: [facility]; Service: Neurosurgery Wound 01/28/24 Left anterior second toe Incision (Active) Dressing Removed Type other (see comments) 07/22/25 1200 Confirmed Empty Wound Bed Yes, visual inspection of wound bed 07/22/25 1200 Closure Unable to assess 07/22/25 1000 Base moist;pink;red 07/22/25 1200 Periwound intact 07/22/25 1200 Periwound Temperature warm 07/22/25 1200 Periwound Skin Turgor soft 07/22/25 1200 Edges irregular 07/22/25 1200 Drainage Characteristics/Odor serosanguineous 07/22/25 1200 Drainage Amount small 07/22/25 1200 Care, Wound irrigated with;wound cleanser 07/22/25 1200 Dressing Care foam;low-adherent;silver impregnated 07/22/25 1200 Periwound Care dry periwound area maintained 07/22/25 1200 Wound Left posterior heel (Active) Dressing Appearance intact;moist drainage 07/22/25 1200 Dressing Removed Type foam;low-adherent 07/22/25 1200 Confirmed Empty Wound Bed Yes, visual inspection of wound bed 07/22/25 1200 Closure Unable to assess 07/22/25 1000 Base moist;pink;red 07/22/25 1200 Periwound intact;dry 07/22/25 1200 Periwound Temperature warm 07/22/25 1200 Periwound Skin Turgor soft 07/22/25 1200 Edges irregular 07/22/25 1200 Drainage Characteristics/Odor serosanguineous 07/22/25 1200 Drainage Amount small 07/22/25 1200 Care, Wound irrigated with;wound cleanser 07/22/25 1200 Dressing Care foam;low-adherent;silver impregnated 07/22/25 1200 Periwound Care dry periwound area maintained 07/22/25 1200 Wound 06/26/25 0150 Left medial coccyx Pressure Injury (Active) Closure None 07/21/25 1800 Base nonblanchable 07/21/252025 Periwound redness;excoriated 07/21/252025 Periwound Temperature warm 07/21/25 1800 Periwound Skin Turgor soft 07/21/25 1800 Drainage Characteristics/Odor sanguineous 07/21/25 1800 Drainage Amount scant 07/21/25 1800 Dressing Care skin barrier agent applied 07/21/252025 Periwound Care barrier ointment applied 07/21/252025 Wound 06/26/25 0150 Left posterior greater trochanter Pressure Injury (Active) Closure Unable to assess 07/22/25 1000 Base bleeding;moist;red 07/21/25 1800 Periwound excoriated;macerated;moist;redness 07/21/25 1800 Periwound Temperature warm 07/21/25 1800 Periwound Skin Turgor soft 07/21/25 1800 Edges open 07/21/25 1800 Drainage Characteristics/Odor sanguineous 07/21/25 1800 Drainage Amount scant 07/21/25 1800 Wound 06/26/25 0150 Right posterior greater trochanter Pressure Injury (Active) Closure Unable to assess 07/22/25 1000 Base unable to visualize 07/21/25 1800 Periwound excoriated;macerated;redness 07/21/25 1800 Periwound Temperature warm 07/21/25 1800 NPWT (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 Wound Therapy) 07/03/25 LEFT FOOT (Active) Therapy Setting vacuum off 07/22/25 1200 Dressing foam, black 07/21/252025 Sponges Removed 1 07/22/25 1200 Finger sweep complete Yes 07/22/25 1200 Lymphedema Row Name 07/22/25 1300 Lymphedema Edema Assessment Ptting Edema Category By severity - Pitting Edema Moderate - Skin Changes/Observations Location/Assessment Lower Extremity - Lower Extremity Conditions left:;scaly;crust;inflamed - Lower Extremity Color/Pigment left:;erythema - Compression/Skin Care Compression/Skin Care skin care;wrapping location;bandaging - Skin Care washed/dried;lotion applied - Wrapping Location lower extremity - Wrapping Location LE left:;foot to knee - Wrapping Comments unna boot applied in clamshell with kerlix and spandage to secure. - User Llanes (r) = Recorded By, (t) = Taken By, (c) = Cosigned By Initials Name Provider Type Duglas Mayes, PT Physical Therapist WOUND DEBRIDEMENT Total area of Debridement: ~10cm2 Debridement Site 1 Location- Site 1: LLE Selective Debridement- Site 1: Wound Surface <20cmsq Instruments- Site 1: tweezers Excised Tissue Description- Site 1: minimum, slough Bleeding- Site 1: none PT Assessment (Last 12 Hours) PT Evaluation and Treatment Row Name 07/22/25 1200 Physical Therapy Time and Intention Subjective Information complains of;weakness;fatigue - Document Type therapy note (daily note);wound care - Mode of Treatment individual therapy;physical therapy - Row Name 07/22/25 1200 Pain Pretreatment Pain Rating 0/10 - no pain - Posttreatment Pain Rating 0/10 - no pain - Pre/Posttreatment Pain Comment pt slept through tx. - Row Name Wound 06/26/25 0150 Left medial coccyx Pressure Injury Wound - Properties Group Placement Date: 06/26/25 -EW Placement Time: 149 -EW Present on Original Admission: Y -EW Side: Left -EW Orientation: medial -EW Location: coccyx -EW Primary Wound Type: Pressure Inj -EW Retired Wound - Properties Group Placement Date: 06/26/25 -EW Placement Time: 149 -EW Present on Original Admission: Y -EW Side: Left -EW Orientation: medial -EW Location: coccyx -EW Retired Wound - Properties Group Placement Date: 06/26/25 Placement Time: 0150 -EW Present on Original Admission: Y -EW Side: Left -EW Orientation: medial -EW Location: coccyx -EW Retired Wound - Properties Group Date first assessed: 06/26/25 Time first assessed: 0150 -EW Present on Original Admission: Y -EW Side: Left -EW Location: coccyx -EW Row Name Wound 06/26/25 0150 Left posterior greater trochanter Pressure Injury Wound - Properties Group Placement Date: 06/26/25 Placement Time: 0150 -EW Present on Original Admission: Y -EW Side: Left -EW Orientation: posterior -EW Location: greater trochanter -EW PrimaryWound Type: Pressure Inj -EW Retired Wound - Properties Group Placement Date: 06/26/25 Placement Time: 0150 -EW Present on Original Admission: Y -EW Side: Left -EW Orientation: posterior -EW Location: greater trochanter -EW Retired Wound - Properties Group Placement Date: 06/26/25 Placement Time: 0150 -EW Present on Original Admission: Y -EW Side: Left -EW Orientation: posterior -EW Location: greater trochanter -EW Retired Wound - Properties Group Date first assessed: 06/26/25 Time first assessed: 0150 -EW Present on Original Admission: Y -EW Side: Left -EW Location: greater trochanter -EW Row Name Wound 06/26/25 0150 Right posterior greater trochanter Pressure Injury Wound - Properties Group Placement Date: 06/26/25 Placement Time: 0150 -EW Present on Original Admission: Y -EW Side: Right -EW Orientation: posterior -EW Location: greater trochanter -EW PrimaryWound Type: Pressure Inj -EW Retired Wound - Properties Group Placement Date: 06/26/25 Placement Time: 0150 -EW Present on Original Admission: Y -EW Side: Right -EW Orientation: posterior -EW Location: greater trochanter -EW Retired Wound - Properties Group Placement Date: 06/26/25 Placement Time: 0150 -EW Present on Original Admission: Y -EW Side: Right -EW Orientation: posterior -EW Location: greater trochanter -EW Retired Wound - Properties Group Date first assessed: 06/26/25 -EW Time first assessed: 149 Present on Original Admission: Y -EW Side: Right -EW Location: greater trochanter -EW Row Name 07/22/25 1200 Wound Left posterior heel Wound - Properties Group Present on Original Admission: Y -MR Side: Left -MR Orientation: posterior-MR Location: heel -MR Primary Wound Type: Pressure inj -MR Dressing Appearance intact;moist drainage -MF Dressing Removed Type foam;low-adherent -MF Confirmed Empty Wound Bed Yes, visual inspection of wound bed -MF Base moist;pink;red -MF Periwound intact;dry -MF Periwound Temperature warm -MF Periwound Skin Turgor soft -MF Edges irregular -MF Drainage Characteristics/Odor serosanguineous -MF Drainage Amount small -MF Care, Wound irrigated with;wound cleanser -MF Dressing Care foam;low-adherent;silver impregnated -MF Periwound Care dry periwound area maintained -MF Retired Wound - Properties Group Present on Original Admission: Y -MR Side: Left -MR Orientation: posterior -MR Location: heel -MR Primary Wound Type: Pressure inj -MR Retired Wound - Properties Group Present on Original Admission: Y -MR Side: Left -MR Orientation: posterior -MR Location: heel -MR Primary Wound Type: Pressure inj -MR Retired Wound - Properties Group Present on Original Admission: Y -MR Side: Left -MR Location: heel-MR Primary Wound Type: Pressure inj -MR Row Name 07/22/25 1200 Wound 01/28/24 Left anterior second toe Incision Wound - Properties Group Placement Date: 01/28/24 -MJ Present on Original Admission: N -MJ Side: Left -MJ Orientation: anterior -MJ Location: second toe - MJ Primary Wound Type: Incision -MJ Dressing Removed Type other (see comments) vac -MF Confirmed Empty Wound Bed Yes, visual inspection of wound bed -MF Base moist;pink;red -MF Periwound intact -MF Periwound Temperature warm -MF Periwound Skin Turgor soft -MF Edges irregular -MF Drainage Characteristics/Odor serosanguineous -MF Drainage Amount small -MF Care, Wound irrigated with;wound cleanser -MF Dressing Care foam;low-adherent;silver impregnated -MF Periwound Care dry periwound area maintained -MF Retired Wound - Properties Group Placement Date: 01/28/24 -MJ Present on Original Admission: N -MJ Side: Left -MJ Orientation: anterior -MJ Location: second toe -MJ Primary Wound Type: Incision -MJ Retired Wound - Properties Group Placement Date: 01/28/24 -MJ Present on Original Admission: N -MJ Side: Left -MJ Orientation: anterior -MJ Location: second toe -MJ Primary Wound Type: Incision -MJ Retired Wound - Properties Group Date first assessed: 01/28/24 -MJ Present on Original Admission: N-MJ Side: Left -MJ Location: second toe -MJ Primary Wound Type: Incision -MJ Row Name 07/22/25 1200 NPWT (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 Wound Therapy) 07/03/25 LEFT FOOT NPWT (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 Wound Therapy) - Properties Group Placement Date: 07/03/25 -RS Location: LEFT FOOT -RS Additional Comments: PER MD CLARKE REYNOSO Therapy Setting vacuum off - Sponges Removed 1 -MF Finger sweep complete Yes - 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) - Properties Group Placement Date: 07/03/25 -RS Location: LEFT FOOT -RS Additional Comments: PER MD CLARKE REYNOSO 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) - Properties Group Placement Date: 07/03/25 -RS Location: LEFT FOOT -RS Additional Comments: PER MD CLARKE REYNOSO 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) - Properties Group Placement Date: 07/03/25 -RS Location: LEFT FOOT -RS Additional Comments: PER MD CLARKE REYNOSO Row Name 07/22/25 1200 Coping Observed Emotional State quiet - Verbalized Emotional State acceptance - Row Name 07/22/25 1200 Plan of Care Review Plan of Care Reviewed With patient - Outcome Evaluation Pt removed wound vac last night. PT presented to replace wound vac, but pt showing limited progress with vac to this point and pt having freq issues with confusion leading to vac dressing being removed. PT covered wounds with mepilex Ag foam and reapplied unna boot with kerlix tohelp improve skin integrity and healing potential while limiting pt's confusion / frustration with dressings. - Row Name 07/22/25 1200 Positioning and Restraints Pre-Treatment Position in bed - Post Treatment Position bed - In Bed supine;call light within reach - User Llanes (r) = Recorded By, (t) = Taken By, (c) = Cosigned By Initials Name Provider Type Duglas Pathak, PT Physical Therapist MR Charles Margarita Tierney, RN Registered Nurse Kristan Giordano, RN Registered Nurse Henrietta Blakely, JESSEE Registered Nurse Alessandra Whitaker, JESSEE Registered Nurse Physical Therapy Education Title: PT OT HOMICIDE INVESTIGATOR Therapies (In Progress) Topic: Physical Therapy (In Progress) Point: Mobility training (In Progress) Learning Progress Summary Patient Acceptance, E,TB, NR,NL by at 07/21/2025 1009 Acceptance, E,TB, NR,VU by CH at 07/20/2025 1000 Acceptance, E, NR by KG at 07/18/2025 1520 Acceptance, E, VU by IG at 07/13/2025 1457 Comment: PT POC Acceptance, E, VU by IG at 07/10/2025 1532 Comment: PT POC Acceptance, E, VU by IG at 07/05/2025 1624 Comment: PT POC Acceptance, E, VU,NR by ML at 06/29/2025 0907 Acceptance, E, VU,NR by NS at 06/26/2025 1618 Point: Home exercise program (In Progress) Learning Progress Summary Patient Acceptance, E,TB, NR,NL by at 07/21/2025 1009 Acceptance, E,TB, NR,VU by CH at 07/20/2025 1000 Acceptance, E, NR by KG at 07/18/2025 1520 Acceptance, E, VU by IG at 07/13/2025 1457 Comment: PT POC Acceptance, E, VU by IG at 07/10/2025 1532 Comment: PT POC Acceptance, E, VU by IG at 07/05/2025 1624 Comment: PT POC Acceptance, E, VU,NR by NS at 06/26/2025 1618 Point: Body mechanics (In Progress) Learning Progress Summary Patient Acceptance, E,TB, NR,NL by at 07/21/2025 1009 Acceptance, E,TB, NR,VU by CH at 07/20/2025 1000 Acceptance, E, NR by KG at 07/18/2025 1520 Acceptance, E, VU by IG at 07/13/2025 1457 Comment: PT POC Acceptance, E, VU by IG at 07/10/2025 1532 Comment: PT POC Acceptance, E, VU by IG at 07/05/2025 1624 Comment: PT POC Acceptance, E, VU,NR by NS at 06/26/2025 1618 Point: Precautions (In Progress) Learning Progress Summary Patient Acceptance, E,TB, NR,NL by at 07/21/2025 1009 Acceptance, E,TB, NR,VU by CH at 07/20/2025 1000 Acceptance, E, NR by KG at 07/18/2025 1520 Acceptance, E, VU by IG at 07/13/2025 1457 Comment: PT POC Acceptance, E, VU by IG at 07/10/2025 1532 Comment: PT POC Acceptance, E, VU by IG at 07/05/2025 1624 Comment: PT POC Acceptance, E, VU,NR by at 06/29/2025 0907 Acceptance, E, VU,NR by NS at 06/26/2025 1618 User Llanes Initials Effective Dates Name Provider Type Discipline 02/26/21 - Shital Costa RN Registered Nurse Nurse 08/25/24 - Lori Rajan Physical Therapist PT 02/26/21 - Mirela Hsu, MARY Physical Therapist PT 01/02/21 - Leonie Thomas Physical Therapist PT IG 04/19/25 - Hayden Matias, PT Physical Therapist PT Recommendation and Plan Recommended discharge disposition is based on the functional assessment performed by PT/OT/Speech therapy (as applicable) and may not reflect the medical necessity determined by your provider or services covered by an individual patient's insurance plan or patient resource. Anticipated Discharge Disposition (PT): inpatient rehabilitation facility Planned Therapy Interventions (PT): balance training, bed mobility training, patient/family education, postural re-education, strengthening, transfer training Therapy Frequency (PT): daily Plan of Care Reviewed With: patient Outcome Evaluation: Pt removed wound vac last night. PT presented to replace wound vac, but pt showing limited progress with vac to this point and pt having freq issues with confusion leading to vac dressing being removed. PT covered wounds with mepilex Ag foam and reapplied unna boot with kerlix to help improve skin integrity and healing potential while limiting pt's confusion / frustration withdressings. Plan of Care Reviewed With: patient Time Calculation PT Charges Row Name 07/22/25 1200 Time Calculation Start Time 1200 -MF PT Goal Re-Cert Due Date 07/20/25 - Untimed Charges 79331-[id number] Boot 25 -MF Total Minutes Untimed Charges Total Minutes 25 -MF Total Minutes 25 -MF User Llanes (r) = Recorded By, (t) = Taken By, (c) = Cosigned By Initials Name Provider Type Duglas Pathak, PT Physical Therapist Therapy Charges for Today Code Description Service Date Service Provider Modifiers Qty [id number] HC PT NEG PRESS WOUND TO 50SQCM DME1 07/21/2025 Duglas Mayes, PT 1 PT G-Codes Outcome Measure Options: AM-PAC 6 Clicks Daily Activity (OT) AM-PAC 6 Clicks Score (PT): 8 AM-PAC 6 Clicks Score (OT): 16 Duglas Mayes, MARY 07/22/2025 * Case Management/Social Work - Monalisa Reilly RN - 07/20/2025 12:51 PM EST Continued Stay Note [facility] Patient Name: Trung Pool Today's Date: 07/20/2025 Admit Date: 06/25/2025 Plan: SNF Discharge Plan Row Name 07/20/25 1249 Plan Plan SNF Patient/Family in Agreement with Plan yes Plan Comments I spoke with Mr Pool at bedside. At this time Mr Pool has stated that he is willing to go to a SNF (but a good one, he amends) and do four weeks of therapy and antibiotic therapy, and then he would like to return home. When he returns home he would like home health to resume. I have called and spoken with Samia/Gerardo. Samia states that she has sent Mr Pool's file to [facility] and they are reviewing him. Case management will continue to follow. I received a phone call back from Samia/Gerardo. [facility] has looked at Mr Pool and has denied him. The last time Mr Pool was at [facility], he had behaviors and left AMA. Since [facility] has denied him, he is not able to go to any [facility] in [facility]. Case management will continue to follow. Final Discharge Disposition Code 03 - intermediate facility (SNF) Discharge Codes No documentation. Expected Discharge Date and Time Expected Discharge Date Expected Discharge Time Jul 23, 2025 Monalisa Reilly, RN * Therapy Wound Care Treatment - Duglas Mayes PT - 07/20/2025 10:07 AM EST Images from the original note were not included. Acute Care - Wound/Debridement Treatment Note [facility] Patient Name: Trung Pool : 1955 Today's Date: 07/20/2025 Admit Date: 06/25/2025 Visit Dx: ICD-10-CM ICD-9-CM 1. Cellulitis of left lower extremity L03.116 682.6 2. Hematuria, unspecified type R31.9 599.70 3. Urinary tract infection associated with indwelling urethral catheter, initial encounter [id number] N39.0 599.0 4. Diarrhea, unspecified type R19.7 787.91 5. PAD (peripheral artery disease) I73.9 443.9 6. Wound infection T14.8XXA 958.3 L08.9 7. Critical limb ischemia of left lower extremity I70.222 440.22 Patient Active Problem List Diagnosis Acute deep [...] traumatic brain injury Possible meningioma Moderate malnutrition Seizure disorder Adrenal insufficiency Dysphagia Pressure injury of buttock, stage 1 Pressure ulcers of skin of multiple topographic sites Cellulitis of left foot Gangrene History of DVT (deep vein thrombosis) Severe sepsis Hx of migraine headaches Coronary artery disease involving [place] coronary artery of [place] heart without angina pectoris Left leg cellulitis Altered mental status PAD (peripheral artery disease) Wound infection Type 2 diabetes mellitus with diabetic peripheral angiopathy without gangrene, without long-term current use of insulin Mixed hyperlipidemia S/P AKA (above knee amputation), right CHARLIE (acute kidney injury) Type 2 diabetes mellitus, with long-term current use of insulin Arteriovenous fistula, acquired Cellulitis Acute UTI (urinary tract infection) Diarrhea of presumed infectious origin Acute on chronic blood loss anemia BPH without obstruction/lower urinary tract symptoms GERD without esophagitis Bilateral inguinal hernia Gastroenteritis due to norovirus Past Medical History: Diagnosis Date Anemia Cellulitis Diabetes mellitus Frequent falls History of DVT (deep vein thrombosis) Hyperlipidemia Hypertension Migraines Myocardial infarction Peripheral neuropathy Pneumonia Spinal stenosis Wears dentures FULL Wears glasses Past Surgical History: Procedure Laterality Date ABOVE KNEE AMPUTATION Right AMPUTATION DIGIT Left 01/28/2024 Procedure: SECOND AND THIRD TOE AMPUTATION LEFT; Surgeon: Cecil Buenrostro Jr., MD; Location: [facility]; Service: Orthopedics; Laterality: Left; ANTERIOR CERVICAL DISCECTOMY W/ FUSION Bilateral 07/17/2020 Procedure: Cervical discectomy anterior with fusion C3-4; Surgeon: Tyree Tan MD; Location: [facility]; Service: Neurosurgery; Laterality: Bilateral; AORTOGRAM N/A 01/26/2024 Procedure: ABDOMINAL AORTIC ANGIOGRAM, LLE ANGIOGRAM, LEFT ANTERIOR TIBIAL ATHERECTOMY, LEFT ANTERIOR TIBIAL ANGIOPLASTY; Surgeon: Archie Olvera MD; Location: [facility]; Service: Vascular; Laterality: N/A; CONTRAST: 50 ML, FT: 2 MIN 54 SEC, DOSE: 66 MGY. AORTOGRAM Left 07/03/2025 Procedure: ARTERIOGRAM LOWER EXTREMITY; Surgeon: Vaughn Hollingsworth DO; Location: [facility]; Service: Vascular; Laterality: Left; FT-6MINS 24SEC 140 MGY CONTRAST -15ML BACK SURGERY FOR DISC HERNIATION CARDIAC CATHETERIZATION [...] ASSISTED CLOSURE; Surgeon: Cecil Buenrostro Jr., MD;Location: [facility]; Service: Orthopedics; Laterality: Left; INCISION AND DRAINAGE LEG Left 07/25/2023 Procedure: INCISION AND DRAINAGE HEEL, WOUND VAC; Surgeon: Cecil Buenrostro Jr., MD; Location: [facility]; Service: Orthopedics; Laterality: Left; INCISION AND DRAINAGE LEG Left 07/03/2025 Procedure: DEBRIDEMENT WOUND, PLACEMENT OF WOUND VAC; Surgeon: Vaughn Hollingsworth DO; Location: [facility]; Service: Vascular; Laterality: Left; INTERVENTIONAL RADIOLOGY PROCEDURE N/A 05/02/2019 Procedure: IVC FILTER PLACEMENT; Surgeon: Pedro Zapien MD; Location: [facility]; Service: Interventional Radiology INTERVENTIONAL RADIOLOGY PROCEDURE Left 09/07/2024 Procedure: LEFT peroneal arteriovenous fistula embolization - Right femoral access; Surgeon: Jared Marcano MD; Location: [facility]; Service: Cardiovascular; Laterality: Left; Please coordinate with Gautam Patel ([facility]) [phone] who will bring coils LUMBAR DISCECTOMY N/A 05/03/2019 Procedure: THORACIC LAMINECTOMY T11-12; Surgeon: Tyree Tan MD; Location: [facility]; Service: Neurosurgery Wound 01/28/24 Left anterior second toe Incision (Active) Wound Image 07/20/25799 Dressing Appearance intact 07/20/25799 Dressing Removed Type other (see comments) 07/20/25799 Confirmed Empty Wound Bed Yes, visual inspection of wound bed 07/20/25799 Base moist;pink;red 07/20/25799 Periwound pink;redness 07/20/25799 Periwound Temperature warm 07/20/25799 Periwound Skin Turgor soft 07/20/25799 Edges irregular 07/20/25799 Wound Length (cm) 3 cm 07/20/25799 Wound Width (cm) 6 cm 07/20/25799 Wound Depth (cm) 0.1 cm 07/20/25799 Wound Surface Area (cm^2) 14.14 cm^2 07/20/25799 Wound Volume (cm^3) 0.942 cm^3 07/20/25799 Drainage Characteristics/Odor serosanguineous 07/20/25799 Drainage Amount scant 07/20/25799 Care, Wound irrigated with;wound cleanser;negative pressure wound therapy 07/20/25799 Dressing Care dressing changed 07/20/25799 Periwound Care dry periwound area maintained 07/20/25799 Wound Output (mL) 100 07/20/25799 Wound Left posterior heel (Active) Wound Image 07/20/25799 Dressing Appearance intact;moist drainage 07/20/25799 Dressing Removed Type gauze 07/20/25799 Confirmed Empty Wound Bed Yes, visual inspection of wound bed 07/20/25799 Closure Adhesive bandage 07/19/25 1600 Base moist;pink;red 07/20/25799 Periwound dry;intact 07/20/25799 Periwound Temperature warm 07/20/25799 Periwound Skin Turgor soft 07/20/25799 Edges irregular 07/20/25799 Drainage Characteristics/Odor serosanguineous 07/20/25799 Drainage Amount small 07/20/25799 Care, Wound irrigated with;wound cleanser 07/20/25799 Dressing Care dressing changed;foam;low-adherent;silver impregnated 07/20/25799 Periwound Care cleansed with pH balanced cleanser;dry periwound area maintained 07/20/25799 Wound 06/26/25 0150 Left medial coccyx Pressure Injury (Active) Dressing Appearance dry;intact;no drainage 07/20/25399 Closure None;Open to air 07/19/25 1600 Base unable to visualize 07/20/25 040 Periwound excoriated;redness 07/19/252199 Periwound Temperature warm 07/19/25 220 Periwound Skin Turgor soft 07/19/252199 Care, Wound cleansed with;soap and water 07/19/25 2225 Dressing Care silicone border foam 07/20/25 040 Wound 06/26/25 0150 Left posterior greater trochanter Pressure Injury (Active) Dressing Appearance open to air 07/20/25 040 Closure None;Open to air 07/19/25 1600 Base bleeding;moist;red 07/19/252199 Periwound excoriated;macerated;moist;redness 07/19/25 220 Periwound Temperature warm 07/19/25 2200 Periwound Skin Turgor soft 07/19/25 2200 Edges open 07/19/252199 Drainage Characteristics/Odor sanguineous 07/19/252199 Drainage Amount scant 07/19/252199 Care, Wound cleansed with;soap and water;barrier applied 07/19/252224 Dressing Care open to air 07/19/25 1600 Wound 06/26/25 0150 Right posterior greater trochanter Pressure Injury (Active) Pressure Injury Stage 3 07/19/252199 Dressing Appearance dry;intact;no drainage 07/20/25399 Closure None;Open to air 07/19/25 1600 Base unable to visualize 07/20/25399 Periwound excoriated;macerated;redness 07/19/252199 Periwound Temperature warm 07/19/252199 Periwound Skin Turgor soft 07/19/252199 Edges jagged;open 07/19/252199 Drainage Characteristics/Odor sanguineous 07/19/252199 Drainage Amount small 07/19/252199 Care, Wound cleansed with;soap and water;barrier applied;other (see comments) 07/19/252224 Dressing Care silicone border foam 07/20/25399 NPWT (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 Wound Therapy) 07/03/25 LEFT FOOT (Active) Therapy Setting continuous therapy 07/20/25799 Dressing foam, black 07/20/25799 Pressure Setting 125 mmHg 07/20/25799 Sponges Inserted 1 07/20/25799 Sponges Removed 1 07/20/25799 Finger sweep complete Yes 07/20/25799 Lymphedema Row Name 07/20/25799 Lymphedema Edema Assessment Ptting Edema Category By severity - Pitting Edema Moderate - Compression/Skin Care Compression/Skin Care skin care;wrapping location;bandaging - Skin Care washed/dried;lotion applied - Wrapping Location lower extremity - Wrapping Location LE left:;foot to knee - Wrapping Comments unna boot applied in clamshell with kerlix and spandage to secure. - User Llanes (r) = Recorded By, (t) = Taken By, (c) = Cosigned By Initials Name Provider Type Duglas Pathak, PT Physical Therapist WOUND DEBRIDEMENT Total area of Debridement: ~10cm2 Debridement Site 1 Location- Site 1: LLE Selective Debridement- Site 1: Wound Surface <20cmsq Instruments- Site 1: tweezers Excised Tissue Description- Site 1: minimum, slough Bleeding- Site 1: none PT Assessment (Last 12 Hours) PT Evaluation and Treatment Row Name 07/20/25 08 Physical Therapy Time and Intention Subjective Information complains of;weakness;fatigue - Document Type therapy note (daily note);wound care - Mode of Treatment individual therapy;physical therapy - Row Name 07/20/25 08 Pain Pretreatment Pain Rating 0/10 - no pain - Posttreatment Pain Rating 0/10 - no pain - Pre/Posttreatment Pain Comment pt sleeping through tx. - Row Name Wound 06/26/25 0150 Left medial coccyx Pressure Injury Wound - Properties Group Placement Date: 06/26/25 Placement Time: 0150 -EW Present on Original Admission: Y -EW Side: Left -EW Orientation: medial -EW Location: coccyx -EW Primary Wound Type: Pressure Inj -EW Retired Wound - Properties Group Placement Date: 06/26/25 Placement Time: 0150 -EW Present on Original Admission: Y -EW Side: Left -EW Orientation: medial -EW Location: coccyx -EW Retired Wound - Properties Group Placement Date: 06/26/25 Placement Time: 0150 -EW Present on Original Admission: Y -EW Side: Left -EW Orientation: medial -EW Location: coccyx -EW Retired Wound - Properties Group Date first assessed: 06/26/25 Time first assessed: 0150 -EW Present on Original Admission: Y -EW Side: Left -EW Location: coccyx -EW Row Name Wound 06/26/25 0150 Left posterior greater trochanter Pressure Injury Wound - Properties Group Placement Date: 06/26/25 Placement Time: 0150 -EW Present on Original Admission: Y -EW Side: Left -EW Orientation: posterior -EW Location: greater trochanter -EW Primary Wound Type: Pressure Inj -EW Retired Wound - Properties Group Placement Date: 06/26/25 Placement Time: 0150 -EW Present on Original Admission: Y -EW Side: Left -EW Orientation: posterior -EW Location: greater trochanter -EW Retired Wound - Properties Group Placement Date: 06/26/25 Placement Time: 0150 -EW Present on Original Admission: Y -EW Side: Left -EW Orientation: posterior -EW Location: greater trochanter -EW Retired Wound - Properties Group Date first assessed: 06/26/25 Time first assessed: 0150 - Present on Original Admission: Y -EW Side: Left -EW Location: greater trochanter -EW Row Name Wound 06/26/25 0150 Right posterior greater trochanter Pressure Injury Wound - Properties Group Placement Date: 06/26/25 Placement Time: 0150 -EW Present on Original Admission: Y -EW Side: Right -EW Orientation: posterior -EW Location: greater trochanter -EW PrimaryWound Type: Pressure Inj -EW Retired Wound - Properties Group Placement Date: 06/26/25 Placement Time: 0150 -EW Present on Original Admission: Y -EW Side: Right -EW Orientation: posterior -EW Location: greater trochanter -EW Retired Wound - Properties Group Placement Date: 06/26/25 Placement Time: 0150 -EW Present on Original Admission: Y -EW Side: Right -EW Orientation: posterior -EW Location: greater trochanter -EW Retired Wound - Properties Group Date first assessed: 06/26/25 Time first assessed: 0150 -EW Present on Original Admission: Y -EW Side: Right -EW Location: greater trochanter -EW Row Name 07/20/25 0800 Wound Left posterior heel Wound - Properties Group Present on Original Admission: Y -MR Side: Left -MR Orientation: posterior-MR Location: heel -MR Primary Wound Type: Pressure inj -MR Wound Image Images linked: 1 -MF Dressing Appearance intact;moist drainage -MF Dressing Removed Type gauze -MF Confirmed Empty Wound Bed Yes, visual inspection of wound bed -MF Base moist;pink;red -MF Periwound dry;intact - Periwound Temperature warm -MF Periwound Skin Turgor soft -MF Edges irregular -MF Drainage Characteristics/Odor serosanguineous -MF Drainage Amount small -MF Care, Wound irrigated with;wound cleanser -MF Dressing Care dressing changed;foam;low-adherent;silver impregnated mepilex Ag foam -MF Periwound Care cleansed with pH balanced cleanser;dry periwound area maintained -MF Retired Wound - Properties Group Present on Original Admission: Y -MR Side: Left -MR Orientation: posterior -MR Location: heel -MR Primary Wound Type: Pressure inj -MR Retired Wound - Properties Group Present on Original Admission: Y -MR Side: Left -MR Orientation: posterior -MR Location: heel -MR Primary Wound Type: Pressure inj -MR Retired Wound - Properties Group Present on Original Admission: Y -MR Side: Left -MR Location: heel-MR Primary Wound Type: Pressure inj -MR Row Name 07/20/25 0800 Wound 01/28/24 Left anterior second toe Incision Wound - Properties Group Placement Date: 01/28/24 -MJ Present on Original Admission: N -MJ Side: Left -MJ Orientation: anterior -MJ Location: second toe - MJ Primary Wound Type: Incision -MJ Wound Image Images linked: 1 -MF Dressing Appearance intact -MF Dressing Removed Type other (see comments) vac -MF Confirmed Empty Wound Bed Yes, visual inspection of wound bed -MF Base moist;pink;red -MF Periwound pink;redness -MF Periwound Temperature warm -MF Periwound Skin Turgor soft -MF Edges irregular -MF Wound Length (cm) 3 cm -MF Wound Width (cm) 6 cm -MF Wound Depth (cm) 0.1 cm -MF Wound Surface Area (cm^2) 14.14 cm^2 -MF Wound Volume (cm^3) 0.942 cm^3 -MF Drainage Characteristics/Odor serosanguineous -MF Drainage Amount scant -MF Care, Wound irrigated with;wound cleanser;negative pressure wound therapy -MF Dressing Care dressing changed -MF Periwound Care dry periwound area maintained -MF Wound Output (mL) 100 -MF Retired Wound - Properties Group Placement Date: 01/28/24 -MJ Present on Original Admission: N -MJ Side: Left -MJ Orientation: anterior -MJ Location: second toe -MJ Primary Wound Type: Incision -MJ Retired Wound - Properties Group Placement Date: 01/28/24 -MJ Present on Original Admission: N -MJ Side: Left -MJ Orientation: anterior -MJ Location: second toe -MJ Primary Wound Type: Incision -MJ Retired Wound - Properties Group Date first assessed: 01/28/24 -MJ Present on Original Admission: N-MJ Side: Left -MJ Location: second toe -MJ Primary Wound Type: Incision -MJ Row Name 07/20/25 0800 NPWT (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 Wound Therapy) 07/03/25 LEFT FOOT NPWT (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 Wound Therapy) - Properties Group Placement Date: 07/03/25 -RS Location: LEFT FOOT -RS Additional Comments: PER MD CLARKE REYNOSO Therapy Setting continuous therapy -MF Dressing foam, black -MF Pressure Setting 125 mmHg -MF Sponges Inserted 1 -MF Sponges Removed 1 -MF Finger sweep complete Yes -MF 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) - Properties Group Placement Date: 07/03/25 -RS Location: LEFT FOOT -RS Additional Comments: PER MD CLARKE REYNOSO 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) - Properties Group Placement Date: 07/03/25 -RS Location: LEFT FOOT -RS Additional Comments: PER MD CLARKE REYNOSO 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) - Properties Group Placement Date: 07/03/25 -RS Location: LEFT FOOT -RS Additional Comments: PER MD CLARKE REYNOSO Row Name 07/20/25 08 Coping Observed Emotional State calm;uncooperative - Verbalized Emotional State acceptance - Trust Relationship/Rapport care explained - Row Name 07/20/25 08 Plan of Care Review Plan of Care Reviewed With patient - Outcome Evaluation PT changed L foot wound vac. no significant change in wound measurements noted today, but skin integrity of LE significantly improved with use of unna boot. PT will cont with unna boot changes every 2-3 days with wound vac changes. - Row Name 07/20/25799 Positioning and Restraints Pre-Treatment Position in bed - Post Treatment Position bed -MF In Bed supine;call light within reach - User Llanes (r) = Recorded By, (t) = Taken By, (c) = Cosigned By Initials Name Provider Type Duglas Pathak, PT Physical Therapist Margarita Olvera, RN Registered Nurse Kristan Giordano RN Registered Nurse Henrietta Blakely, JESSEE Registered Nurse RS Alessandra Gregory, RN Registered Nurse Physical Therapy Education Title: PT OT HOMICIDE INVESTIGATOR Therapies (Done) Topic: Physical Therapy (Done) Point: Mobility training (Done) Learning Progress Summary Patient Acceptance, E,TB, NR,VU by CH at 07/20/2025 1000 Acceptance, E, NR by KG at 07/18/2025 1520 Acceptance, E, VU by IG at 07/13/2025 1457 Comment: PT POC Acceptance, E, VU by IG at 07/10/2025 1532 Comment: PT POC Acceptance, E, VU by IG at 07/05/2025 1624 Comment: PT POC Acceptance, E, VU,NR by ML at 06/29/2025 0907 Acceptance, E, VU,NR by NS at 06/26/2025 1618 Point: Home exercise program (Done) Learning Progress Summary Patient Acceptance, E,TB, NR,VU by at 07/20/2025 1000 Acceptance, E, NR by KG at 07/18/2025 1520 Acceptance, E, VU by IG at 07/13/2025 1457 Comment: PT POC Acceptance, E, VU by IG at 07/10/2025 1532 Comment: PT POC Acceptance, E, VU by IG at 07/05/2025 1624 Comment: PT POC Acceptance, E, VU,NR by NS at 06/26/2025 1618 Point: Body mechanics (Done) Learning Progress Summary Patient Acceptance, E,TB, NR,VU by at 07/20/2025 1000 Acceptance, E, NR by KG at 07/18/2025 1520 Acceptance, E, VU by IG at 07/13/2025 1457 Comment: PT POC Acceptance, E, VU by IG at 07/10/2025 1532 Comment: PT POC Acceptance, E, VU by IG at 07/05/2025 1624 Comment: PT POC Acceptance, E, VU,NR by NS at 06/26/2025 1618 Point: Precautions (Done) Learning Progress Summary Patient Acceptance, E,TB, NR,VU by at 07/20/2025 1000 Acceptance, E, NR by KG at 07/18/2025 1520 Acceptance, E, VU by IG at 07/13/2025 1457 Comment: PT POC Acceptance, E, VU by IG at 07/10/2025 1532 Comment: PT POC Acceptance, E, VU by IG at 07/05/2025 1624 Comment: PT POC Acceptance, E, VU,NR by ML at 06/29/2025 0907 Acceptance, E, VU,NR by NS at 06/26/2025 1618 User Llanes Initials Effective Dates Name Provider Type Discipline 02/26/21 - Shital Costa RN Registered Nurse Nurse 08/25/24 - Lori Rajan Physical Therapist PT NS 02/26/21 - Mirela Hsu, PT Physical Therapist PT ML 01/02/21 - Leonie Thomas Physical Therapist PT IG 04/19/25 - Hayden Matias, PT Physical Therapist PT Recommendation and Plan Recommended discharge disposition is based on the functional assessment performed by PT/OT/Speech therapy (as applicable) and may not reflect the medical necessity determined by your provider or services covered by an individual patient's insurance plan or patient resource. Anticipated Discharge Disposition (PT): inpatient rehabilitation facility Planned Therapy Interventions (PT): balance training, bed mobility training, patient/family education, postural re-education, strengthening, transfer training Therapy Frequency (PT): daily Plan of Care Reviewed With: patient Outcome Evaluation: PT changed L foot wound vac. no significant change in wound measurements noted today, but skin integrity of LE significantly improved with use of unna boot. PT will cont with unnaboot changes every 2-3 days with wound vac changes. Plan of Care Reviewed With: patient Time Calculation PT Charges Row Name 07/20/25 0800 Time Calculation Start Time 0800 -MF PT Goal Re-Cert Due Date 07/20/25 - Untimed Charges 81104-Uzzz Boot 10 -MF 46159-Zbtugodwp debridement 10 -MF 78279-Rnp Pressure wound to 50 sqcm 25 -MF Total Minutes Untimed Charges Total Minutes 45 -MF Total Minutes 45 -MF User Llanes (r) = Recorded By, (t) = Taken By, (c) = Cosigned By Initials Name Provider Type Duglas Pathak, PT Physical Therapist PT G-Codes Outcome Measure Options: AM-PAC 6 Clicks Daily Activity (OT) AM-PAC 6 Clicks Score (PT): 10 AM-PAC 6 Clicks Score (OT): 16 Duglas Mayes, PT 07/20/2025 * Therapy Treatment Note - Shyla Tarango, OT - 07/19/2025 2:22 PM EST Images from the original note were not included. Patient Name: Trung Pool : 1955 Today's Date: 07/19/2025 Admit Date: 06/25/2025 Visit Dx: ICD-10-CM ICD-9-CM 1. Cellulitis of left lower extremity L03.116 682.6 2. Hematuria, unspecified type R31.9 599.70 3. Urinary tract infection associated with indwelling urethral catheter, initial encounter T83.401X820.64 N39.0 599.0 4. Diarrhea, unspecified type R19.7 787.91 5. PAD (peripheral artery disease) I73.9 443.9 6. Wound infection T14.8XXA 958.3 L08.9 7. Critical limb ischemia of left lower extremity I70.222 440.22 Patient Active Problem List Diagnosis Acute deep [...] traumatic brain injury Possible meningioma Moderate malnutrition Seizure disorder Adrenal insufficiency Dysphagia Pressure injury of buttock, stage 1 Pressure ulcers of skin of multiple topographic sites Cellulitis of left foot Gangrene History of DVT (deep vein thrombosis) Severe sepsis Hx of migraine headaches Coronary artery disease involving [place] coronary artery of [place] heart without angina pectoris Left leg cellulitis Altered mental status PAD (peripheral artery disease) Wound infection Type 2 diabetes mellitus with diabetic peripheral angiopathy without gangrene, without long-term current use of insulin Mixed hyperlipidemia S/P AKA (above knee amputation), right CHARLIE (acute kidney injury) Type 2 diabetes mellitus, with long-term current use of insulin Arteriovenous fistula, acquired Cellulitis Acute UTI (urinary tract infection) Diarrhea of presumed infectious origin Acute on chronic blood loss anemia BPH without obstruction/lower urinary tract symptoms GERD without esophagitis Bilateral inguinal hernia Gastroenteritis due to norovirus Past Medical History: Diagnosis Date Anemia Cellulitis Diabetes mellitus Frequent falls History of DVT (deep vein thrombosis) Hyperlipidemia Hypertension Migraines Myocardial infarction Peripheral neuropathy Pneumonia Spinal stenosis Wears dentures FULL Wears glasses Past Surgical History: Procedure Laterality Date ABOVE KNEE AMPUTATION Right AMPUTATION DIGIT Left 01/28/2024 Procedure: SECOND AND THIRD TOE AMPUTATION LEFT; Surgeon: Cecil Buenrostro Jr., MD; Location: [facility]; Service: Orthopedics; Laterality: Left; ANTERIOR CERVICAL DISCECTOMY W/ FUSION Bilateral 07/17/2020 Procedure: Cervical discectomy anterior with fusion C3-4; Surgeon: Tyree aTn MD; Location:[facility]; Service: Neurosurgery; Laterality: Bilateral; AORTOGRAM N/A 01/26/2024 Procedure: ABDOMINAL AORTIC ANGIOGRAM, LLE ANGIOGRAM, LEFT ANTERIOR TIBIAL ATHERECTOMY, LEFT ANTERIOR TIBIAL ANGIOPLASTY; Surgeon: Archie Olvera MD; Location: [facility]; Service: Vascular; Laterality: N/A; CONTRAST: 50 ML, FT: 2 MIN 54 SEC, DOSE: 66 MGY. AORTOGRAM Left 07/03/2025 Procedure: ARTERIOGRAM LOWER EXTREMITY; Surgeon: Vaughn Hollingsworth DO; Location: [facility]; Service: Vascular; Laterality: Left; FT-6MINS 24SEC 140 MGY CONTRAST -15ML BACK SURGERY FOR DISC HERNIATION CARDIAC CATHETERIZATION CARDIAC CATHETERIZATION N/A 09/04/2024 Procedure: Peripheral angiography - Left lower extremity angio - Right femoral access; Surgeon: Jared Marcano MD; Location: [facility]; Service: Peripheral Vascular; Laterality: N/A; CORONARY ANGIOPLASTY WITH STENT PLACEMENT stent x 1 INCISION AND DRAINAGE FOOT Left 06/17/2023 Procedure: LEFT FOOT DEBRIDEMENT WOUND VACUUM ASSISTED CLOSURE; Surgeon: Cecil Buenrostro Jr., MD;Location: [facility]; Service: Orthopedics; Laterality: Left; INCISION AND DRAINAGE LEG Left 07/25/2023 Procedure: INCISION AND DRAINAGE HEEL, WOUND VAC; Surgeon: Cecil Buenrostro Jr., MD; Location: [facility]; Service: Orthopedics; Laterality: Left; INCISION AND DRAINAGE LEG Left 07/03/2025 Procedure: DEBRIDEMENT WOUND, PLACEMENT OF WOUND VAC; Surgeon: Vaughn Hollingsworth DO; Location: [facility]; Service: Vascular; Laterality: Left; INTERVENTIONAL RADIOLOGY PROCEDURE N/A 05/02/2019 Procedure: IVC FILTER PLACEMENT; Surgeon: Pedro Zapien MD; Location: [facility]; Service: Interventional Radiology INTERVENTIONAL RADIOLOGY PROCEDURE Left 09/07/2024 Procedure: LEFT peroneal arteriovenous fistula embolization - Right femoral access; Surgeon: Jared Marcano MD; Location: [facility]; Service: Cardiovascular; Laterality: Left; Please coordinate with Gautam Patel [facility]) [phone] who will bring coils LUMBAR DISCECTOMY N/A 05/03/2019 Procedure: THORACIC LAMINECTOMY T11-12; Surgeon: Tyree Tan MD; Location: [facility]; Service: Neurosurgery General Information Row Name 07/19/25 145 OT Time and Intention Document Type therapy note (daily note) - Mode of Treatment occupational therapy - Row Name 07/19/251452 General Information Patient Profile Reviewed yes - Existing Precautions/Restrictions fall;other (see comments) contact Travis joshi AKMigdalia, wound vac, [place] - Barriers to Rehab medically complex;previous functional deficit - Row Name 07/19/251452 Cognition Orientation Status (Cognition) oriented x 3 - Row Name 07/19/251452 Safety Issues/Impairments Affecting Functional Mobility Safety Issues Affecting Function (Mobility) awareness of need for assistance;insight into deficits/self-awareness;safety precaution awareness;safety precautions follow-through/compliance;sequencing abilities - Impairments Affecting Function (Mobility) balance;coordination;endurance/activity tolerance;pain;range of motion (ROM);strength - User Llanes (r) = Recorded By, (t) = Taken By, (c) = Cosigned By Initials Name Provider Type Shyla Tarango OT Occupational Therapist Mobility/ADL's Row Name 07/19/25 145 Functional Mobility Functional Mobility- Ind. Level unable to perform - Functional Mobility- Comment EOB UE ther ex, sitting balance tasks, and grooming completed - Patient was able to Ambulate no, other medical factors prevent ambulation - Row Name 07/19/25 145 Grooming Assessment/Training Osteen Level (Grooming) wash face, hands;set up - Position (Grooming) edge of bed sitting;unsupported sitting - User Llanes (r) = Recorded By, (t) = Taken By, (c) = Cosigned By Initials Name Provider Type Shyla Tarango OT Occupational Therapist Obj/Interventions Row Name 07/19/25 145 Shoulder (Therapeutic Exercise) Shoulder AROM (Therapeutic Exercise) scapular retraction;15 repititions;bilateral;flexion;3 second hold;10 repetitions < full range with L shoulder flexion, assist to hold - Row Name 07/19/25 145 Motor Skills Motor Skills functional endurance - Functional Endurance EOB activities completed for activity tolerance, postural control, balance, strengthening. Minimal fatigue - Therapeutic Exercise shoulder - Row Name 07/19/25 1456 Balance Balance Assessment sitting static balance;sitting dynamic balance - Static Sitting Balance supervision - Dynamic Sitting Balance standby assist - Position, Sitting Balance unsupported;sitting edge of bed - Balance Interventions sitting;static;dynamic;occupation based/functional task;weight shifting activity - Comment, Balance Reaching for item x5 outside of base of support to L, R, and forward for dynamic sitting balance. No LOB, increased time required - User Llanes (r) = Recorded By, (t) = Taken By, (c) = Cosigned By Initials Name Provider Type Shyla Tarango OT Occupational Therapist Goals/Plan No documentation. Clinical Impression Row Name 07/19/25 1501 Pain Assessment Pain Location extremity - Pain Side/Orientation left;lower - Pain Management Interventions activity modification encouraged;exercise or physical activity utilized;nursing notified - Response to Pain Interventions activity participation with increased pain - Row Name 07/19/25 1501 Pain Scale: FACES Pre/Post-Treatment Pain: FACES Scale, Pretreatment 0-->no hurt - Posttreatment Pain Rating 2-->hurts little bit - Row Name 07/19/25 1501 Plan of Care Review Plan of Care Reviewed With patient - Progress no change - Outcome Evaluation Pt presents with deficits including decreased activity tolerance, balance deficits, generalized weakness, decreased UE ROM, and R AKA warranting continued IPOT services. Pt completed sitting at EOB with supervision-SBA for duration of session, engaged in UE ther ex, dynamic balance activity, and grooming task with no LOB. Rec d/c to SNF - Row Name 07/19/25 1501 Therapy Plan Review/Discharge Plan (OT) Anticipated Discharge Disposition (OT) intermediate facility - Row Name 07/19/25 1501 Vital Signs Pre Patient Position Sitting - Intra Patient Position Sitting - Post Patient Position Sitting - Row Name 07/19/25 1501 Positioning and Restraints Pre-Treatment Position in bed EOB -CH Post Treatment Position bed EOB - In Bed sitting EOB;call light within reach;encouraged to call for assist - User Llanes (r) = Recorded By, (t) = Taken By, (c) = Cosigned By Initials Name Provider Type Shyla Tarango OT Occupational Therapist Outcome Measures Row Name 07/19/25 1506 How much help from another is currently needed... Putting on and taking off regular lower body clothing? 2 -CH Bathing (including washing, rinsing, and drying) 2 -CH Toileting (which includes using toilet bed chavis or urinal) 2 -CH Putting on and taking off regular upper body clothing 3 -CH Taking care of personal grooming (such as brushing teeth) 3 -CH Eating meals 4 -CH AM-PAC 6 Clicks Score (OT) 16 -CH Row Name 07/19/25 1506 Functional Assessment Outcome Measure Options AM-PAC 6 Clicks Daily Activity (OT) - User Llanes (r) = Recorded By, (t) = Taken By, (c) = Cosigned By Initials Name Provider Type Shyla Tarango OT Occupational Therapist Occupational Therapy Education Title: PT OT HOMICIDE INVESTIGATOR Therapies (In Progress) Topic: Occupational Therapy (In Progress) Point: ADL training (In Progress) Learning Progress Summary Patient Acceptance, E,TB, NR by at 07/19/2025 1422 Acceptance, E, NR by at 07/17/2025 1542 Point: Home exercise program (In Progress) Learning Progress Summary Patient Acceptance, E, NR by at 07/17/2025 1542 Point: Precautions (In Progress) Learning Progress Summary Patient Acceptance, E,TB, NR by at 07/19/2025 1422 Acceptance, E, NR by at 07/17/2025 1542 Point: Body mechanics (In Progress) Learning Progress Summary Patient Acceptance, E,TB, NR by at 07/19/2025 1422 Acceptance, E, NR by at 07/17/2025 1542 User Llanes Initials Effective Dates Name Provider Type [facility] 06/21/24 - Ivone Horan OT Occupational Therapist OT 06/18/25 - Shyla Tarango OT Occupational Therapist OT OT Recommendation and Plan Recommended discharge disposition is based on the functional assessment performed by PT/OT/Speech therapy (as applicable) and may not reflect the medical necessity determined by your provider or services covered by an individual patient's insurance plan or patient resource. Plan of Care Review Plan of Care Reviewed With: patient Progress: no change Outcome Evaluation: Pt presents with deficits including decreased activity tolerance, balance deficits, generalized weakness, decreased UE ROM, and R AKA warranting continued IPOT services. Pt completed sitting at EOB with supervision-SBA for duration of session, engaged in UE ther ex, dynamic balance activity, and grooming task with no LOB. Rec d/c to SNF Time Calculation: Time Calculation- OT Row Name 07/19/25 1507 Time Calculation- OT OT Start Time 1422 -CH OT Received On 07/19/25 - OT Goal Re-Cert Due Date 07/27/25 - Timed Charges 44679 - OT Therapeutic Exercise Minutes 10 -CH 58907 - OT Therapeutic Activity Minutes 20 -CH Total Minutes Timed Charges Total Minutes 30 -CH Total Minutes 30 -CH User Llanes (r) = Recorded By, (t) = Taken By, (c) = Cosigned By Initials Name Provider Type Shyla Tarango OT Occupational Therapist Therapy Charges for Today Code Description Service Date Service Provider Modifiers Qty [id number] OT THER PROC EA 15 MIN 07/19/2025 Shyla Tarango OT GO 1 [id number] HC OT THERAPEUTIC ACT EA 15 MIN 07/19/2025 Shyla Tarango OT GO 1 Shyla Tarango OT 07/19/2025 * Case Management/Social Work - Monalisa Reilly RN - 07/19/2025 11:50 AM EST Continued Stay Note [facility] Patient Name: Trung Pool Today's Date: 07/19/2025 Admit Date: 06/25/2025 Plan: SNF Discharge Plan Row Name 07/19/25 1140 Plan Plan SNF Patient/Family in Agreement with Plan yes Plan Comments I have received a phone call from Rosenda at [facility]. Unfortunately [facility] is not in network with Mr Pool's insurance. I also received a phone call fromLuz at [facility], and they do not have any male beds available. I was able to reachDenise at [facility], and they are in network with Mr Pool's insurance. I have sent over a referral. I spoke with Mr Pool at bedside and updated him on the fact that the only facilities that Iknow accept his insurance and have a bed is the facilities that he does not want to go to. Mr Pool states that he would rather return home with home health coming out to help him with his antibiotics. I asked him about his antibiotics, since he is on daily antibiotic infusions. He states that home health would help him, and he would not worry about the other times. He states that he accepts the consequences. I asked him about home with hospice, and he states that he is not at the point of accepting hospice at this time. I have discussed this with JOHNATHON Severino and Dr Alcantara with the [facility] team. Mere has messaged Dr. Andres. Case management will continue to follow. Discharge Codes No documentation. Expected Discharge Date and Time Expected Discharge Date Expected Discharge Time Jul 20, 2025 Monalisa Reilly RN * Case Management/Social Work - Monalisa Reilly RN - 07/18/2025 1:59 PM EST Continued Stay Note [facility] Patient Name: Trung Pool Today's Date: 07/18/2025 Admit Date: 06/25/2025 Plan: Short term rehab Discharge Plan Row Name 07/18/25 1349 Plan Plan Short term rehab Plan Comments I have gone through and called every facility within a 20 mile radius of Mr Diaz house and [facility]. The only facilities that take Mr Diaz insurance are [facility], [facility], [facility], [facility], [facility], [facility] skilled rehab unit, [facility], [facility], [facility], [facility], [facility], [facility], and [facility] swing bed. At this time, I have referrals out to all [facility] facilities, [facility], [facility], [facility], [facility], and [facility] swing bed. I have called and left a voicemail with both [facility] and [facility] bed to call me back about thereferrals. I have made the referrals to [facility] and [facility] facilities today. I am waiting to hear back from [facility] and [facility] to see if they can offer him a bed. Please note that Mr Pool has stated that he does not want to go back to any [facility] or [facility]. Case management will continue to follow. Final Discharge Disposition Code 03 - intermediate facility (SNF) Discharge Codes No documentation. Expected Discharge Date and Time Expected Discharge Date Expected Discharge Time Jul 20, 2025 Monalisa Reilly RN * Therapy Treatment Note - Lori Rajan - 07/18/2025 1:40 PM EST Images from the original note were not included. Patient Name: Trung Pool : 1955 Today's Date: 07/18/2025 Admit Date: 06/25/2025 Visit Dx: ICD-10-CM ICD-9-CM 1. Cellulitis of left lower extremity L03.116 682.6 2. Hematuria, unspecified type R31.9 599.70 3. Urinary tract infection associated with indwelling urethral catheter, initial encounter T83.851Z528.64 N39.0 599.0 4. Diarrhea, unspecified type R19.7 787.91 5. PAD (peripheral artery disease) I73.9 443.9 6. Wound infection T14.8XXA 958.3 L08.9 7. Critical limb ischemia of left lower extremity I70.222 440.22 Patient Active Problem List Diagnosis Acute deep [...] traumatic brain injury Possible meningioma Moderate malnutrition Seizure disorder Adrenal insufficiency Dysphagia Pressure injury of buttock, stage 1 Pressure ulcers of skin of multiple topographic sites Cellulitis of left foot Gangrene History of DVT (deep vein thrombosis) Severe sepsis Hx of migraine headaches Coronary artery disease involving [place] coronary artery of [place] heart without angina pectoris Left leg cellulitis Altered mental status PAD (peripheral artery disease) Wound infection Type 2 diabetes mellitus with diabetic peripheral angiopathy without gangrene, without long-term current use of insulin Mixed hyperlipidemia S/P AKA (above knee amputation), right CHARLIE (acute kidney injury) Type 2 diabetes mellitus, with long-term current use of insulin Arteriovenous fistula, acquired Cellulitis Acute UTI (urinary tract infection) Diarrhea of presumed infectious origin Acute on chronic blood loss anemia BPH without obstruction/lower urinary tract symptoms GERD without esophagitis Bilateral inguinal hernia Gastroenteritis due to norovirus Past Medical History: Diagnosis Date Anemia Cellulitis Diabetes mellitus Frequent falls History of DVT (deep vein thrombosis) Hyperlipidemia Hypertension Migraines Myocardial infarction Peripheral neuropathy Pneumonia Spinal stenosis Wears dentures FULL Wears glasses Past Surgical History: Procedure Laterality Date ABOVE KNEE AMPUTATION Right AMPUTATION DIGIT Left 01/28/2024 Procedure: SECOND AND THIRD TOE AMPUTATION LEFT; Surgeon: Cecil Buenrostro Jr., MD; Location: [facility]; Service: Orthopedics; Laterality: Left; ANTERIOR CERVICAL DISCECTOMY W/ FUSION Bilateral 07/17/2020 Procedure: Cervical discectomy anterior with fusion C3-4; Surgeon: Tyree Tan MD; Location: [facility]; Service: Neurosurgery; Laterality: Bilateral; AORTOGRAM N/A 01/26/2024 Procedure: ABDOMINAL AORTIC ANGIOGRAM, LLE ANGIOGRAM, LEFT ANTERIOR TIBIAL ATHERECTOMY, LEFT ANTERIOR TIBIAL ANGIOPLASTY; Surgeon: Archie Olvera MD; Location: [facility]; Service: Vascular; Laterality: N/A; CONTRAST: 50 ML, FT: 2 MIN 54 SEC, DOSE: 66 MGY. AORTOGRAM Left 07/03/2025 Procedure: ARTERIOGRAM LOWER EXTREMITY; Surgeon: Vaughn Hollingsworth DO; Location: [facility]; Service: Vascular; Laterality: Left; FT-6MINS 24SEC 140 MGY CONTRAST -15ML BACK SURGERY FOR DISC HERNIATION CARDIAC CATHETERIZATION CARDIAC CATHETERIZATION N/A 09/04/2024 Procedure: Peripheral angiography - Left lower extremity angio - Right femoral access; Surgeon: Jared Marcano MD; Location: [facility]; Service: Peripheral Vascular; Laterality: [...] Location: [facility]; Service: Orthopedics; Laterality: Left; INCISION AND DRAINAGE LEG Left 07/03/2025 Procedure: DEBRIDEMENT WOUND, PLACEMENT OF WOUND VAC; Surgeon: Vaughn Hollingsworth DO; Location: [facility]; Service: Vascular; Laterality: Left; INTERVENTIONAL RADIOLOGY PROCEDURE N/A 05/02/2019 Procedure: IVC FILTER PLACEMENT; Surgeon: Pedro Zapien MD; Location: [facility]; Service: Interventional Radiology INTERVENTIONAL RADIOLOGY PROCEDURE Left 09/07/2024 Procedure: LEFT peroneal arteriovenous fistula embolization - Right femoral access; Surgeon: Jared Marcano MD; Location: [facility]; Service: Cardiovascular; Laterality: Left; Please coordinate with Gautam Patel ([facility]) [phone] who will bring coils LUMBAR DISCECTOMY N/A 05/03/2019 Procedure: THORACIC LAMINECTOMY T11-12; Surgeon: Tyree Tan MD; Location: [facility]; Service: Neurosurgery General Information Row Name 07/18/25 1505 Physical Therapy Time and Intention Document Type therapy note (daily note) -KG Mode of Treatment physical therapy -KG Row Name 07/18/25 1508 General Information Patient Profile Reviewed yes -KG Existing Precautions/Restrictions fall;other (see comments) Contact Spore; remote R AKA, chronic [place] catheter; 07/03 transmetatarsal debridement and angiogram LLE with wound vac -KG Row Name 07/18/25 1507 Cognition Orientation Status (Cognition) oriented x 3 -KG Row Name 07/18/25 1504 Safety Issues/Impairments Affecting Functional Mobility Safety Issues Affecting Function (Mobility) insight into deficits/self- awareness;safety precautionsfollow-through/compliance;safety precaution awareness -KG Impairments Affecting Function (Mobility) balance;coordination;endurance/activity tolerance;pain;range of motion (ROM);sensation/sensory awareness;strength -KG User Llanes (r) = Recorded By, (t) = Taken By, (c) = Cosigned By Initials Name Provider Type PAOLA Lori Rajan Physical Therapist Mobility Row Name 07/18/25 1510 Bed Mobility Bed Mobility rolling left;rolling right -KG Rolling Left Osteen (Bed Mobility) standby assist;verbal cues -KG Rolling Right Osteen (Bed Mobility) standby assist;verbal cues -KG Scooting/Bridging Osteen (Bed Mobility) standby assist -KG Supine-Sit Osteen (Bed Mobility) standby assist -KG Sit-Supine Osteen (Bed Mobility) standby assist -KG Assistive Device (Bed Mobility) bed rails -KG Row Name 07/18/25 151 Transfers Comment, (Transfers) declined t/f to chair but very motivated to sit EOB and work on functional movement, exercises -KG Row Name 07/18/25 151 Sit-Stand Transfer Sit-Stand Osteen (Transfers) unable to assess -KG User Llanes (r) = Recorded By, (t) = Taken By, (c) = Cosigned By Initials Name Provider Type PAOLA Lori Rajan Physical Therapist Obj/Interventions Row Name 07/18/25 151 Motor Skills Therapeutic Exercise other (see comments) supine SLR, rolling, seated LAQ, core twists, arm push ups, hip flexion, side leans scapular retraction, hip abd -KG Row Name 07/18/25 151 Balance Dynamic Sitting Balance contact guard -KG Balance Interventions sitting -KG User Llanes (r) = Recorded By, (t) = Taken By, (c) = Cosigned By Initials Name Provider Type Lori Alarcon Physical Therapist Goals/Plan No documentation. Clinical Impression Row Name 07/18/25 151 Pain Pretreatment Pain Rating 0/10 - no pain -KG Posttreatment Pain Rating 0/10 - no pain -KG Row Name 07/18/25 151 Plan of Care Review Plan of Care Reviewed With patient -KG Progress improving -KG Outcome Evaluation declined t/f to chair due to buttock soreness but very motivated to sit EOB and work on functional movement, exercises -KG Row Name 07/18/25 151 Positioning and Restraints Pre-Treatment Position in bed -KG Post Treatment Position bed -KG In Bed notified nsg;fowlers;call light within reach;encouraged to call for assist;exit alarm on -KG User Llanes (r) = Recorded By, (t) = Taken By, (c) = Cosigned By Initials Name Provider Type PAOLA Lori Rajan Physical Therapist Outcome Measures Row Name 07/18/25 1519 07/18/25 0855 How much help from another person do you currently need... Turning from your back to your side while in flat bed without using bedrails? 3 -KG 3 -CHRISTA Moving from lying on back to sitting on the side of a flat bed without bedrails? 3 -KG 2 -CHRISTA Moving to and from a bed to a chair (including a wheelchair)? 1 -KG 1 -CHRISTA Standing up from a chair using your arms (e.g., wheelchair, bedside chair)? 1 - KG 1 -CHRISTA Climbing 3-5 steps with a railing? 1 -KG 1 -CHRISTA To walk in hospital room? 1 -KG 1 -CHRISTA AM-PAC 6 Clicks Score (PT) 10 -KG 9 -CHRISTA Highest Level of Mobility Goal Move to Chair/Commode-4 -KG Sit at Edge of Bed-3 -CHRISTA Row Name 07/18/25 1519 Functional Assessment Outcome Measure Options AM-PAC 6 Clicks Basic Mobility (PT) -KG User Llanes (r) = Recorded By, (t) = Taken By, (c) = Cosigned By Initials Name Provider Type PAOLA Lori Rajan Physical Therapist Maxine Maldonado, RN Registered Nurse Physical Therapy Education Title: PT OT HOMICIDE INVESTIGATOR Therapies (In Progress) Topic: Physical Therapy (In Progress) Point: Mobility training (In Progress) Learning Progress Summary Patient Acceptance, E, NR by KG at 07/18/2025 1520 Acceptance, E, VU by IG at 07/13/2025 1457 Comment: PT POC Acceptance, E, VU by IG at 07/10/2025 1532 Comment: PT POC Acceptance, E, VU by IG at 07/05/2025 1624 Comment: PT POC Acceptance, E, VU,NR by ML at 06/29/2025 0907 Acceptance, E, VU,NR by NS at 06/26/2025 1618 Point: Home exercise program (In Progress) Learning Progress Summary Patient Acceptance, E, NR by KG at 07/18/2025 1520 Acceptance, E, VU by IG at 07/13/2025 1457 Comment: PT POC Acceptance, E, VU by IG at 07/10/2025 1532 Comment: PT POC Acceptance, E, VU by IG at 07/05/2025 1624 Comment: PT POC Acceptance, E, VU,NR by NS at 06/26/2025 1618 Point: Body mechanics (In Progress) Learning Progress Summary Patient Acceptance, E, NR by KG at 07/18/2025 1520 Acceptance, E, VU by IG at 07/13/2025 1457 Comment: PT POC Acceptance, E, VU by IG at 07/10/2025 1532 Comment: PT POC Acceptance, E, VU by IG at 07/05/2025 1624 Comment: PT POC Acceptance, E, VU,NR by NS at 06/26/2025 1618 Point: Precautions (In Progress) Learning Progress Summary Patient Acceptance, E, NR by KG at 07/18/2025 1520 Acceptance, E, VU by IG at 07/13/2025 1457 Comment: PT POC Acceptance, E, VU by IG at 07/10/2025 1532 Comment: PT POC Acceptance, E, VU by IG at 07/05/2025 1624 Comment: PT POC Acceptance, E, VU,NR by ML at 06/29/2025 0907 Acceptance, E, VU,NR by NS at 06/26/2025 1618 User Llanes Initials Effective Dates Name Provider Type Discipline KG 08/25/24 - Lori Rajan Physical Therapist PT NS 02/26/21 - Mirela Hsu, PT Physical Therapist PT ML 01/02/21 - Leonie Thomas Physical Therapist PT IG 04/19/25 - Hayden Matias, PT Physical Therapist PT PT Recommendation and Plan Recommended discharge disposition is based on the functional assessment performed by PT/OT/Speech therapy (as applicable) and may not reflect the medical necessity determined by your provider or services covered by an individual patient's insurance plan or patient resource. Progress: improving Outcome Evaluation: declined t/f to chair due to buttock soreness but very motivated to sit EOB andwork on functional movement, exercises Time Calculation: PT Charges Row Name 07/18/25 1521 Time Calculation Start Time 1340 -KG PT Received On 07/18/25 -KG Timed Charges 51506 - PT Therapeutic Exercise Minutes 23 -KG 42459 - PT Therapeutic Activity Minutes 15 -KG Total Minutes Timed Charges Total Minutes 38 -KG Total Minutes 38 -KG User Llanes (r) = Recorded By, (t) = Taken By, (c) = Cosigned By Initials Name Provider Type PAOLA Lori Rajan Physical Therapist Therapy Charges for Today Code Description Service Date Service Provider Modifiers Qty [id number] HC PT THER PROC EA 15 MIN 07/18/2025 Lori Rajan GP 2 [id number] HC PT THERAPEUTIC ACT EA 15 MIN 07/18/2025 Lori Rajan GP 1 PT G-Codes Outcome Measure Options: AM-PAC 6 Clicks Basic Mobility (PT) AM-PAC 6 Clicks Score (PT): 10 AM-PAC 6 Clicks Score (OT): 16 PT Discharge Summary Anticipated Discharge Disposition (PT): inpatient rehabilitation facility [facility] 07/18/2025 * Therapy Progress Report/Re-Cert - Ivone Horan, OT - 07/17/2025 1:55 PM EST Images from the original note were not included. Patient Name: Trung Pool : 1955 Today's Date: 07/17/2025 Admit Date: 06/25/2025 Visit Dx: ICD-10-CM ICD-9-CM 1. Cellulitis of left lower extremity L03.116 682.6 2. Hematuria, unspecified type R31.9 599.70 3. Urinary tract infection associated with indwelling urethral catheter, initial encounter T83.511A 996.64 N39.0 599.0 4. Diarrhea, unspecified type R19.7 787.91 5. PAD (peripheral artery disease) I73.9 443.9 6. Wound infection T14.8XXA 958.3 L08.9 7. Critical limb ischemia of left lower extremity I70.222 440.22 Patient Active Problem List Diagnosis Acute deep [...] traumatic brain injury Possible meningioma Moderate malnutrition Seizure disorder Adrenal insufficiency Dysphagia Pressure injury of buttock, stage 1 Pressure ulcers of skin of multiple topographic sites Cellulitis of left foot Gangrene History of DVT (deep vein thrombosis) Severe sepsis Hx of migraine headaches Coronary artery disease involving [place] coronary artery of [place] heart without angina pectoris Left leg cellulitis Altered mental status PAD (peripheral artery disease) Wound infection Type 2 diabetes mellitus with diabetic peripheral angiopathy without gangrene, without long-term current use of insulin Mixed hyperlipidemia S/P AKA (above knee amputation), right CHARLIE (acute kidney injury) Type 2 diabetes mellitus, with long-term current use of insulin Arteriovenous fistula, acquired Cellulitis Acute UTI (urinary tract infection) Diarrhea of presumed infectious origin Acute on chronic blood loss anemia BPH without obstruction/lower urinary tract symptoms GERD without esophagitis Bilateral inguinal hernia Gastroenteritis due to norovirus Past Medical History: Diagnosis Date Anemia Cellulitis Diabetes mellitus Frequent falls History of DVT (deep vein thrombosis) Hyperlipidemia Hypertension Migraines Myocardial infarction Peripheral neuropathy Pneumonia Spinal stenosis Wears dentures FULL Wears glasses Past Surgical History: Procedure Laterality Date ABOVE KNEE AMPUTATION Right AMPUTATION DIGIT Left 01/28/2024 Procedure: SECOND AND THIRD TOE AMPUTATION LEFT; Surgeon: Cecil Buenrostro Jr., MD; Location: [facility]; Service: Orthopedics; Laterality: Left; ANTERIOR CERVICAL DISCECTOMY W/ FUSION Bilateral 07/17/2020 Procedure: Cervical discectomy anterior with fusion C3-4; Surgeon: Tyree Tan MD; Location: [facility]; Service: Neurosurgery; Laterality: Bilateral; AORTOGRAM N/A 01/26/2024 Procedure: ABDOMINAL AORTIC ANGIOGRAM, LLE ANGIOGRAM, LEFT ANTERIOR TIBIAL ATHERECTOMY, LEFT ANTERIOR TIBIAL ANGIOPLASTY; Surgeon: Archie Olvera MD; Location: [facility]; Service: Vascular; Laterality: N/A; CONTRAST: 50 ML, FT: 2 MIN 54 SEC, DOSE: 66 MGY. AORTOGRAM Left 07/03/2025 Procedure: ARTERIOGRAM LOWER EXTREMITY; Surgeon: Vaughn Hollingsworth DO; Location: [facility]; Service: Vascular; Laterality: Left; FT-6MINS 24SEC 140 MGY CONTRAST -15ML BACK SURGERY FOR DISC HERNIATION CARDIAC CATHETERIZATION [...] ASSISTED CLOSURE; Surgeon: Cecil Buenrostro Jr., MD;Location: [facility]; Service: Orthopedics; Laterality: Left; INCISION AND DRAINAGE LEG Left 07/25/2023 Procedure: INCISION AND DRAINAGE HEEL, WOUND VAC; Surgeon: Cecil Buenrostro Jr., MD; Location: [facility]; Service: Orthopedics; Laterality: Left; INCISION AND DRAINAGE LEG Left 07/03/2025 Procedure: DEBRIDEMENT WOUND, PLACEMENT OF WOUND VAC; Surgeon: Vaughn Hollingsworth DO; Location: [facility]; Service: Vascular; Laterality: Left; INTERVENTIONAL RADIOLOGY PROCEDURE N/A 05/02/2019 Procedure: IVC FILTER PLACEMENT; Surgeon: Pedro Zapien MD; Location: [facility]; Service: Interventional Radiology INTERVENTIONAL RADIOLOGY PROCEDURE Left 09/07/2024 Procedure: LEFT peroneal arteriovenous fistula embolization - Right femoral access; Surgeon: Jared Marcano MD; Location: [facility]; Service: Cardiovascular; Laterality: Left; Please coordinate with Gautam Patel ([facility]) [phone] who will bring coils LUMBAR DISCECTOMY N/A 05/03/2019 Procedure: THORACIC LAMINECTOMY T11-12; Surgeon: Tyree aTn MD; Location: [facility]; Service: Neurosurgery General Information Row Name 07/17/25 1531 OT Time and Intention Document Type progress note/recertification -LR Mode of Treatment occupational therapy -LR Row Name 07/17/25 1531 General Information Patient Profile Reviewed yes -LR Existing Precautions/Restrictions fall;other (see comments) Contact Spore; remote R AKA, chronic [place] catheter; 07/03 transmetatarsal debridement and angiogram LLE with wound vac -LR Barriers to Rehab medically complex;previous functional deficit -LR Row Name 07/17/25 1531 Cognition Orientation Status (Cognition) oriented x 3 -LR Row Name 07/17/25 153 Safety Issues/Impairments Affecting Functional Mobility Safety Issues Affecting Function (Mobility) safety precautions follow- through/compliance;awareness of need for assistance;safety precaution awareness;insight into deficits/self-awareness -LR Impairments Affecting Function (Mobility) balance;coordination;endurance/activity tolerance;pain;range of motion (ROM);sensation/sensory awareness;strength -LR User Llanes (r) = Recorded By, (t) = Taken By, (c) = Cosigned By Initials Name Provider Type Ivone Pinedo OT Occupational Therapist Mobility/ADL's Row Name 07/17/25 1532 Bed Mobility Bed Mobility rolling left;rolling right -LR Rolling Left Osteen (Bed Mobility) standby assist;verbal cues -LR Rolling Right Osteen (Bed Mobility) standby assist;verbal cues -LR Assistive Device (Bed Mobility) bed rails -LR Row Name 07/17/25 153 Transfers Transfers bed-chair transfer -LR Row Name 07/17/25 153 Bed-Chair Transfer Bed-Chair Osteen (Transfers) dependent (less than 25% patient effort);2 person assist;verbal cues -LR Assistive Device (Bed-Chair Transfers) lift device -LR Row Name 07/17/25 1532 Functional Mobility Patient was able to Ambulate no, other medical factors prevent ambulation -LR Row Name 07/17/25 1532 Activities of Daily Living BADL Assessment/Intervention grooming -LR Row Name 07/17/25 153 Grooming Assessment/Training Osteen Level (Grooming) wash face, hands;set up -LR Position (Grooming) supported sitting -LR User Llanes (r) = Recorded By, (t) = Taken By, (c) = Cosigned By Initials Name Provider Type LR Ivone Horan OT Occupational Therapist Obj/Interventions Row Name 07/17/25 1536 Balance Balance Assessment sitting static balance;sitting dynamic balance -LR Static Sitting Balance standby assist -LR Dynamic Sitting Balance contact guard;standby assist -LR Position, Sitting Balance supported;sitting in chair -LR Balance Interventions sitting;supported;static;dynamic;occupation based/functional task -LR User Llanes (r) = Recorded By, (t) = Taken By, (c) = Cosigned By Initials Name Provider Type Ivone Pinedo OT Occupational Therapist Goals/Plan Row Name 07/17/25 153 Bed Mobility Goal 1 (OT) Activity/Assistive Device (Bed Mobility Goal 1, OT) rolling to left;rolling to right;sit to supine/supine to sit -LR Osteen Level/Cues Needed (Bed Mobility Goal 1, OT) minimum assist (75% or more patient effort);verbal cues required;nonverbal cues (demo/gesture) required;moderate assist (50-74% patient effort) -LR Time Frame (Bed Mobility Goal 1, OT) senior living goal (LTG);10 days -LR Progress/Outcomes (Bed Mobility Goal 1, OT) goal met;new goal;goal ongoing -LR Row Name 07/17/25 1539 Transfer Goal 1 (OT) Activity/Assistive Device (Transfer Goal 1, OT) [id number] -LR Osteen Level/Cues Needed (Transfer Goal 1, OT) moderate assist (50-74% patient effort) -LR Time Frame (Transfer Goal 1, OT) lobsterman goal (LTG);10 days -LR Progress/Outcome (Transfer Goal 1, OT) goal no longer appropriate -LR Row Name 07/17/25 1537 Dressing Goal 1 (OT) Activity/Device (Dressing Goal 1, OT) upper body dressing;lower body dressing -LR Osteen/Cues Needed (Dressing Goal 1, OT) standby assist -LR Time Frame (Dressing Goal 1, OT) short term goal (STG);4 days -LR Strategies/Barriers (Dressing Goal 1, OT) sitting EOB -LR Progress/Outcome (Dressing Goal 1, OT) goal ongoing;new goal -LR Row Name 07/17/25 1534 Toileting Goal 1 (OT) Activity/Device (Toileting Goal 1, OT) adjust/manage clothing;perform perineal hygiene;commode, bedside with drop arms -LR Osteen Level/Cues Needed (Toileting Goal 1, OT) moderate assist (50-74% patient effort) -LR Time Frame (Toileting Goal 1, OT) short term goal (STG);5 days -LR Progress/Outcome (Toileting Goal 1, OT) goal no longer appropriate -LR Row Name 07/17/25 153 Grooming Goal 1 (OT) Activity/Device (Grooming Goal 1, OT) oral care;wash face, hands -LR Osteen (Grooming Goal 1, OT) set-up required -LR Time Frame (Grooming Goal 1, OT) senior living goal (LTG);1 week -LR Strategies/Barriers (Grooming Goal 1, OT) sitting EOB with good dynamic sitting balance -LR Row Name 07/17/25 153 Strength Goal 1 (OT) Strength Goal 1 (OT) Pt. will completed UE and core TE with progressive reps and resistance to support ADL and transfer independence. -LR Time Frame (Strength Goal 1, OT) lobsterman goal (LTG);10 days -LR Progress/Outcome (Strength Goal 1, OT) continuing progress toward goal;goal ongoing -LR Row Name 07/17/25 153 Therapy Assessment/Plan (OT) Planned Therapy Interventions (OT) activity tolerance training;adaptive equipment training;BADL retraining;transfer/mobility retraining;occupation/activity based interventions;passive ROM/stretching;f unctional balance retraining;IADL retraining;patient/caregiver education/training;strengthening exercise;ROM/therapeutic exercise;wheelchair assessment/training -LR User Llanes (r) = Recorded By, (t) = Taken By, (c) = Cosigned By Initials Name Provider Type LR Ivone Horan, OT Occupational Therapist Clinical Impression Row Name 07/17/25 153 Pain Assessment Pain Management Interventions exercise or physical activity utilized;positioning techniques utilized -LR Response to Pain Interventions activity participation with tolerable pain -LR Row Name 07/17/251536 Pain Scale: FACES Pre/Post-Treatment Pain: FACES Scale, Pretreatment 0-->no hurt -LR Posttreatment Pain Rating 2-->hurts little bit -LR Row Name 07/17/251536 Plan of Care Review Plan of Care Reviewed With patient -LR Progress no change -LR Outcome Evaluation Re-cert complete. Pt continues to present below baseline with ADL performance and functional mobility. Dep lift x2 to chair. good effort with bed mobility. Continue IPOT POC. -LR Row Name 07/17/251536 Therapy Plan Review/Discharge Plan (OT) Anticipated Discharge Disposition (OT) intermediate facility -LR Row Name 07/17/251536 Vital Signs O2 Delivery Pre Treatment room air -LR O2 Delivery Intra Treatment room air -LR O2 Delivery Post Treatment room air -LR Pre Patient Position Supine -LR Intra Patient Position Side Lying -LR Post Patient Position Sitting -LR Row Name 07/17/251536 Positioning and Restraints Pre-Treatment Position in bed -LR Post Treatment Position chair -LR In Chair notified nsg;reclined;call light within reach;encouraged to call for assist;exit alarm on;waffle cushion;legs elevated;on mechanical lift sling -LR User Llanes (r) = Recorded By, (t) = Taken By, (c) = Cosigned By Initials Name Provider Type Ivone Pinedo, SOCO Occupational Therapist Outcome Measures Row Name 07/17/25 1542 How much help from another is currently needed... Putting on and taking off regular lower body clothing? 2 -LR Bathing (including washing, rinsing, and drying) 2 -LR Toileting (which includes using toilet bed chavis or urinal) 2 -LR Putting on and taking off regular upper body clothing 3 -LR Taking care of personal grooming (such as brushing teeth) 3 -LR Eating meals 4 -LR AM-PAC 6 Clicks Score (OT) 16 -LR Row Name 07/17/25 0859 How much help from another person do you currently need... Turning from your back to your side while in flat bed without using bedrails? 3 -CHRISTA Moving from lying on back to sitting on the side of a flat bed without bedrails? 2 -CHRISTA Moving to and from a bed to a chair (including a wheelchair)? 1 -CHRISTA Standing up from a chair using your arms (e.g., wheelchair, bedside chair)? 1 -CHRISTA Climbing 3-5 steps with a railing? 1 -CHRISTA To walk in hospital room? 1 -CHRISTA AM-PAC 6 Clicks Score (PT) 9 -CHRISTA Highest Level of Mobility Goal Sit at Edge of Bed-3 -CHRISTA Row Name 07/17/25 1542 Functional Assessment Outcome Measure Options AM-PAC 6 Clicks Daily Activity (OT) -LR User Llanes (r) = Recorded By, (t) = Taken By, (c) = Cosigned By Initials Name Provider Type Maxine Maldonado RN Registered Nurse Ivone Pinedo OT Occupational Therapist Occupational Therapy Education Title: PT OT HOMICIDE INVESTIGATOR Therapies (In Progress) Topic: Occupational Therapy (In Progress) Point: ADL training (In Progress) Learning Progress Summary Patient Acceptance, E, NR by LR at 07/17/2025 1542 Point: Home exercise program (In Progress) Learning Progress Summary Patient Acceptance, E, NR by LR at 07/17/2025 1542 Point: Precautions (In Progress) Learning Progress Summary Patient Acceptance, E, NR by LR at 07/17/2025 1542 Point: Body mechanics (In Progress) Learning Progress Summary Patient Acceptance, E, NR by LR at 07/17/2025 1542 User Llanes Initials Effective Dates Name Provider Type Discipline 06/21/24 - Ivone Horan OT Occupational Therapist OT OT Recommendation and Plan Recommended discharge disposition is based on the functional assessment performed by PT/OT/Speech therapy (as applicable) and may not reflect the medical necessity determined by your provider or services covered by an individual patient's insurance plan or patient resource. Planned Therapy Interventions (OT): activity tolerance training, adaptive equipment training, BADL retraining, transfer/mobility retraining, occupation/activity based interventions, passive ROM/stretching, functional balance retraining, IADL retraining, patient/caregiver education/training, strengthening exercise, ROM/therapeutic exercise, wheelchair assessment/training Plan of Care Review Plan of Care Reviewed With: patient Progress: no change Outcome Evaluation: Re-cert complete. Pt continues to present below baseline with ADL performance and functional mobility. Dep lift x2 to chair. good effort with bed mobility. Continue IPOT POC. Time Calculation: Time Calculation- OT Row Name 07/17/25 154 Time Calculation- OT OT Start Time 1355 -LR OT Received On 07/17/25 -LR OT Goal Re-Cert Due Date 07/27/25 -LR Timed Charges 00772 - OT Therapeutic Activity Minutes 26 -LR Total Minutes Timed Charges Total Minutes 26 -LR Total Minutes 26 -LR User Llanes (r) = Recorded By, (t) = Taken By, (c) = Cosigned By Initials Name Provider Type LR Ivone Horan OT Occupational Therapist Therapy Charges for Today Code Description Service Date Service Provider Modifiers Qty [id number] OT THERAPEUTIC ACT EA 15 MIN 07/17/2025 Ivone Horan OT GO 2 Ivone Horan OT 07/17/2025 * Case Management/Social Work - Monalisa Reilly RN - 07/16/2025 3:26 PM EST Continued Stay Note [facility] Patient Name: Trung Pool Today's Date: 07/16/2025 Admit Date: 06/25/2025 Plan: Short term rehab Discharge Plan Row Name 07/16/25 1517 Plan Plan Short term rehab Patient/Family in Agreement with Plan yes Plan Comments I spoke with Mr Pool at bedside. Mr Pool stated that he wanted case management to tryto get him admitted to [facility] for short term rehab. He also stated that he would like to be around the [place], [place] area. I have called and left a voicemail for Juani, admissions at [facility]. I have also faxed over a referral. Mr Pool was also interested in a facility in [place] but not the one by the [facility] . [facility] looked [facility] [place]. Mr Pool also was interested in going to [place], but not to [facility]. I have called [facility] and confirmedthat they have closed their swing bed unit. This means that the only facility in [place] is [facility]. Case management will continue to follow. Final Discharge Disposition Code 03 - intermediate facility (SNF) Discharge Codes No documentation. Expected Discharge Date and Time Expected Discharge Date Expected Discharge Time Jul 20, 2025 Monalisa Reilly RN * Therapy Wound Care Treatment - [place]Leigh AnnAshley, PT - 07/14/2025 10:06 AM EDT Acute Care - Wound/Debridement Treatment Note [facility] Patient Name: Trung Pool : 1955 Today's Date: 07/14/2025 Admit Date: 06/25/2025 Visit Dx: ICD-10-CM ICD-9-CM 1. Cellulitis of left lower extremity L03.116 682.6 2. Hematuria, unspecified type R31.9 599.70 3. Urinary tract infection associated with indwelling urethral catheter, initial encounter T83.993K228.64 N39.0 599.0 4. Diarrhea, unspecified type R19.7 787.91 5. PAD (peripheral artery disease) I73.9 443.9 6. Wound infection T14.8XXA 958.3 L08.9 7. Critical limb ischemia of left lower extremity I70.222 440.22 Patient Active Problem List Diagnosis Acute deep [...] traumatic brain injury Possible meningioma Moderate malnutrition Seizure disorder Adrenal insufficiency Dysphagia Pressure injury of buttock, stage 1 Pressure ulcers of skin of multiple topographic sites Cellulitis of left foot Gangrene History of DVT (deep vein thrombosis) Severe sepsis Hx of migraine headaches Coronary artery disease involving [place] coronary artery of [place] heart without angina pectoris Left leg cellulitis Altered mental status PAD (peripheral artery disease) Wound infection Type 2 diabetes mellitus with diabetic peripheral angiopathy without gangrene, without long-term current use of insulin Mixed hyperlipidemia S/P AKA (above knee amputation), right CHRALIE (acute kidney injury) Type 2 diabetes mellitus, with long-term current use of insulin Arteriovenous fistula, acquired Cellulitis Acute UTI (urinary tract infection) Diarrhea of presumed infectious origin Acute on chronic blood loss anemia BPH without obstruction/lower urinary tract symptoms GERD without esophagitis Bilateral inguinal hernia Gastroenteritis due to norovirus Past Medical History: Diagnosis Date Anemia Cellulitis [...] 2 MIN 54 SEC, DOSE: 66 MGY. AORTOGRAM Left 07/03/2025 Procedure: ARTERIOGRAM LOWER EXTREMITY; Surgeon: Vaughn Hollingsworth DO; Location: [facility]; Service: Vascular; Laterality: Left; FT-6MINS 24SEC 140 MGY CONTRAST -15ML BACK SURGERY FOR DISC HERNIATION CARDIAC CATHETERIZATION [...] Location: [facility]; Service: Orthopedics; Laterality: Left; INCISION AND DRAINAGE LEG Left 07/03/2025 Procedure: DEBRIDEMENT WOUND, PLACEMENT OF WOUND VAC; Surgeon: Vaughn Hollingsworth DO; Location: [facility]; Service: Vascular; Laterality: Left; INTERVENTIONAL RADIOLOGY PROCEDURE N/A 05/02/2019 Procedure: IVC FILTER PLACEMENT; Surgeon: Pedro Zapien MD; Location: [facility]; Service: Interventional Radiology INTERVENTIONAL RADIOLOGY PROCEDURE Left 09/07/2024 Procedure: LEFT peroneal arteriovenous fistula embolization - Right femoral access; Surgeon: Jared Marcano MD; Location: [facility]; Service: Cardiovascular; Laterality: Left; Please coordinate with Gautam Patel ([facility]) [phone] who will bring coils LUMBAR DISCECTOMY N/A 05/03/2019 Procedure: THORACIC LAMINECTOMY T11-12; Surgeon: Tyree Tan MD; Location: [facility]; Service: Neurosurgery Wound 01/15/24 1941 Left lower leg Other (comment) (Active) Periwound Care dry periwound area maintained 07/13/25 1800 Wound 01/28/24 Left anterior second toe Incision (Active) Periwound Care dry periwound area maintained 07/13/25 1800 Wound Left posterior heel (Active) Periwound Care dry periwound area maintained 07/13/25 1800 Wound 06/26/25 0150 Left medial coccyx Pressure Injury (Active) Dressing Appearance other (see comments) 07/13/251999 Closure None 07/13/251999 Base red;pink;moist 07/13/251999 Periwound moist;pink;redness 07/13/251999 Periwound Temperature warm 07/13/251999 Periwound Skin Turgor soft 07/13/251999 Drainage Characteristics/Odor bleeding controlled 07/13/251999 Drainage Amount scant 07/13/251999 Care, Wound cleansed with;soap and water 07/13/251999 Dressing Care silicone border foam 07/13/251999 Periwound Care dry periwound area maintained 07/13/251999 Wound 06/26/25 0150 Left posterior greater trochanter Pressure Injury (Active) Dressing Appearance open to air 07/13/251999 Closure Open to air 07/13/251999 Base red;moist 07/13/251999 Periwound moist;pink 07/13/251999 Drainage Characteristics/Odor bleeding controlled 07/13/251999 Drainage Amount none 07/13/251999 Care, Wound cleansed with;soap and water 07/13/251999 Dressing Care silicone border foam 07/13/251999 Periwound Care barrier ointment applied 07/13/251999 Wound 06/26/25 0150 Right posterior greater trochanter Pressure Injury (Active) Dressing Appearance open to air 07/13/251999 Closure Adhesive bandage 07/13/251999 Base moist;red 07/13/251999 Periwound pink;moist 07/13/251999 Drainage Characteristics/Odor bleeding controlled 07/13/251999 Drainage Amount none 07/13/251999 Care, Wound cleansed with;soap and water 07/13/251999 Dressing Care silicone border foam 07/13/251999 Periwound Care dry periwound area maintained 07/13/251999 Wound 07/03/25 Right anterior groin Surgical Puncture (Active) Dressing Appearance open to air 07/13/25 1622 Wound 07/03/25 1535 Right anterior groin Traumatic Skin Tear (Active) Dressing Appearance open to air 07/13/25 1622 NPWT (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 Wound Therapy) 07/03/25 LEFT FOOT (Active) Therapy Setting continuous therapy 07/14/25 1006 Dressing foam, black 07/13/25 1800 Pressure Setting 125 mmHg 07/14/25 1006 WOUND DEBRIDEMENT PT Assessment (Last 12 Hours) PT Evaluation and Treatment Row Name 07/14/25 1006 Physical Therapy Time and Intention Subjective Information no complaints -KW Document Type wound care;therapy note (daily note) -KW Mode of Treatment physical therapy -KW Row Name 07/14/25 1006 General Information Patient Profile Reviewed yes -KW Row Name Wound 06/26/25 0150 Left medial coccyx Pressure Injury Wound - Properties Group Placement Date: 06/26/25 Placement Time: 0150 -EW Present on Original Admission: Y -EW Side: Left -EW Orientation: medial -EW Location: coccyx -EW Primary Wound Type: Pressure Inj -EW Retired Wound - Properties Group Placement Date: 06/26/25 Placement Time: 0150 -EW Present on Original Admission: Y -EW Side: Left -EW Orientation: medial -EW Location: coccyx -EW Retired Wound - Properties Group Placement Date: 06/26/25 Placement Time: 0150 -EW Present on Original Admission: Y -EW Side: Left -EW Orientation: medial -EW Location: coccyx -EW Retired Wound - Properties Group Date first assessed: 06/26/25 Time first assessed: 0150 -EW Present on Original Admission: Y -EW Side: Left -EW Location: coccyx -EW Row Name Wound 06/26/25 0150 Left posterior greater trochanter Pressure Injury Wound - Properties Group Placement Date: 06/26/25 Placement Time: 0150 -EW Present on Original Admission: Y -EW Side: Left -EW Orientation: posterior -EW Location: greater trochanter -EW Primary Wound Type: Pressure Inj -EW Retired Wound - Properties Group Placement Date: 06/26/25 Placement Time: 0150 -EW Present on Original Admission: Y -EW Side: Left -EW Orientation: posterior -EW Location: greater trochanter -EW Retired Wound - Properties Group Placement Date: 06/26/25 Placement Time: 0150 -EW Present on Original Admission: Y -EW Side: Left -EW Orientation: posterior -EW Location: greater trochanter -EW Retired Wound - Properties Group Date first assessed: 06/26/25 Time first assessed: 0150 -EW Present on Original Admission: Y -EW Side: Left -EW Location: greater trochanter -EW Row Name Wound 06/26/25 0150 Right posterior greater trochanter Pressure Injury Wound - Properties Group Placement Date: 06/26/25 Placement Time: 0150 - Present on Original Admission: Y -EW Side: Right -EW Orientation: posterior -EW Location: greater trochanter -EW PrimaryWound Type: Pressure Inj -EW Retired Wound - Properties Group Placement Date: 06/26/25 Placement Time: 0150 - Present on Original Admission: Y -EW Side: Right -EW Orientation: posterior -EW Location: greater trochanter -EW Retired Wound - Properties Group Placement Date: 06/26/25 Placement Time: 0150 -EW Present on Original Admission: Y -EW Side: Right -EW Orientation: posterior -EW Location: greater trochanter -EW Retired Wound - Properties Group Date first assessed: 06/26/25 Time first assessed: 0150 -EW Present on Original Admission: Y -EW Side: Right -EW Location: greater trochanter -EW Row Name Wound Left posterior heel Wound - Properties Group Present on Original Admission: Y -MR Side: Left -MR Orientation: posterior-MR Location: heel -MR Primary Wound Type: Pressure inj -MR Retired Wound - Properties Group Present on Original Admission: Y -MR Side: Left -MR Orientation: posterior -MR Location: heel -MR Primary Wound Type: Pressure inj -MR Retired Wound - Properties Group Present on Original Admission: Y -MR Side: Left -MR Orientation: posterior -MR Location: heel -MR Primary Wound Type: Pressure inj -MR Retired Wound - Properties Group Present on Original Admission: Y -MR Side: Left -MR Location: heel-MR Primary Wound Type: Pressure inj -MR Row Name Wound 01/28/24 Left anterior second toe Incision Wound - Properties Group Placement Date: 01/28/24 -MJ Present on Original Admission: N -MJ Side: Left -MJ Orientation: anterior -MJ Location: second toe -MJ Primary Wound Type: Incision -MJ Retired Wound - Properties Group Placement Date: 01/28/24 -MJ Present on Original Admission: N -MJ Side: Left -MJ Orientation: anterior -MJ Location: second toe -MJ Primary Wound Type: Incision -MJ Retired Wound - Properties Group Placement Date: 01/28/24 -MJ Present on Original Admission: N -MJ Side: Left -MJ Orientation: anterior -MJ Location: second toe -MJ Primary Wound Type: Incision -MJ Retired Wound - Properties Group Date first assessed: 01/28/24 -MJ Present on Original Admission: N-MJ Side: Left -MJ Location: second toe -MJ Primary Wound Type: Incision -MJ Row Name Wound 01/15/24 194 Left lower leg Other (comment) Wound - Properties Group Placement Date: 01/15/24 -MM Placement Time: 194 -MM Present on Original Admission: Y -MM Side: Left -MM Orientation: lower -MM Location: leg -MM Primary Wound Type: Other -MM, cellulitis Retired Wound - Properties Group Placement Date: 01/15/24 -MM Placement Time: 1940 -MM Present on Original Admission: Y -MM Side: Left -MM Orientation: lower -MM Location: leg -MM Primary Wound Type:Other -MM, cellulitis Retired Wound - Properties Group Placement Date: 01/15/24 -MM Placement Time: 1940 -MM Present on Original Admission: Y -MM Side: Left -MM Orientation: lower -MM Location: leg -MM Primary Wound Type:Other -MM, cellulitis Retired Wound - Properties Group Date first assessed: 01/15/24 -MM Time first assessed: 1940 -MM Present on Original Admission: Y -MM Side: Left -MM Location: leg -MM Primary Wound Type: Other -MM, cellulitis Row Name Wound 07/03/25 Right anterior groin Surgical Puncture Wound - Properties Group Placement Date: 07/03/25 -RS Present on Original Admission: N -RS Side: Right -RS Orientation: anterior -RS Location: groin -RS Primary Wound Type: Surgical -RS Secondary Wound Type - Surgical: Puncture -RS Retired Wound - Properties Group Placement Date: 07/03/25 -RS Present on Original Admission: N -RS Side: Right -RS Orientation: anterior -RS Location: groin -RS Retired Wound - Properties Group Placement Date: 07/03/25 -RS Present on Original Admission: N -RS Side: Right -RS Orientation: anterior -RS Location: groin -RS Retired Wound - Properties Group Date first assessed: 07/03/25 -RS Present on Original Admission: N-RS Side: Right -RS Location: groin -RS Row Name Wound 07/03/25 1535 Right anterior groin Traumatic Skin Tear Wound - Properties Group Placement Date: 07/03/25 -RS Placement Time: 1535 -RS Side: Right -RS Orientation: anterior -RS Location: groin -RS Primary Wound Type: Traumatic -RS Secondary Wound Type - Traumatic: Skin Tear -RS Retired Wound - Properties Group Placement Date: 07/03/25 -RS Placement Time: 1535 -RS Side: Right -RS Orientation: anterior -RS Location: groin -RS Retired Wound - Properties Group Placement Date: 07/03/25 -RS Placement Time: 1535 -RS Side: Right -RS Orientation: anterior -RS Location: groin -RS Retired Wound - Properties Group Date first assessed: 07/03/25 -RS Time first assessed: 1535 -RS Side: Right -RS Location: groin -RS Row Name 07/14/25 1006 NPWT (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 Wound Therapy) 07/03/25 LEFT FOOT NPWT (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 Wound Therapy) - Properties Group Placement Date: 07/03/25 -RS Location: LEFT FOOT -RS Additional Comments: PER MD CLARKE REYNOSO Therapy Setting continuous therapy -KW Pressure Setting 125 mmHg -KW 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) - Properties Group Placement Date: 07/03/25 -RS Location: LEFT FOOT -RS Additional Comments: PER MD CLARKE REYNOSO 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) - Properties Group Placement Date: 07/03/25 -RS Location: LEFT FOOT -RS Additional Comments: PER MD CLARKE REYNOSO 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) - Properties Group Placement Date: 07/03/25 -RS Location: LEFT FOOT -RS Additional Comments: PER MD CLARKE REYNOSO Row Name 07/14/25 1006 Plan of Care Review Plan of Care Reviewed With patient -KW Progress no change -KW Outcome Evaluation Patient's wound vac without leaks or issues. Patient without complaints. Patientcontinues to benefit from skilled PT services and NPWT to improve wound healing. -KW Row Name 07/14/25 1006 Positioning and Restraints Pre-Treatment Position in bed -KW Post Treatment Position bed -KW In Bed supine;call light within reach;encouraged to call for assist -KW User Llanes (r) = Recorded By, (t) = Taken By, (c) = Cosigned By Initials Name Provider Type Tiffanie Olverahawa Tierney, RN Registered Nurse Kristan Giordano, RN Registered Nurse Henrietta Blakely, RN Registered Nurse Ashley Manzanares, MARY Physical Therapist Mary Mayes, RN Registered Nurse Alessandra Whitaker RN Registered Nurse Physical Therapy Education Title: PT OT HOMICIDE INVESTIGATOR Therapies (Done) Topic: Physical Therapy (Done) Point: Mobility training (Done) Learning Progress Summary Patient Acceptance, E, VU by IG at 07/13/20251456 Comment: PT POC Acceptance, E, VU by IG at 07/10/20251531 Comment: PT POC Acceptance, E, VU by IG at 07/05/20251623 Comment: PT POC Acceptance, E, VU,NR by ML at 06/29/2025 0907 Acceptance, E, VU,NR by NS at 06/26/2025 1618 Point: Home exercise program (Done) Learning Progress Summary Patient Acceptance, E, VU by IG at 07/13/20251456 Comment: PT POC Acceptance, E, VU by IG at 07/10/20251531 Comment: PT POC Acceptance, E, VU by IG at 07/05/2025 162 Comment: PT POC Acceptance, E, VU,NR by NS at 06/26/2025 1618 Point: Body mechanics (Done) Learning Progress Summary Patient Acceptance, E, VU by IG at 07/13/20251456 Comment: PT POC Acceptance, E, VU by IG at 07/10/2025 153 Comment: PT POC Acceptance, E, VU by IG at 07/05/2025 162 Comment: PT POC Acceptance, E, VU,NR by NS at 06/26/2025 1618 Point: Precautions (Done) Learning Progress Summary Patient Acceptance, E, VU by IG at 07/13/20251456 Comment: PT POC Acceptance, E, VU by IG at 07/10/2025 153 Comment: PT POC Acceptance, E, VU by IG at 07/05/2025 162 Comment: PT POC Acceptance, E, VU,NR by ML at 06/29/2025 0907 Acceptance, E, VU,NR by CHICHO at 06/26/2025 1618 User Llanes Initials Effective Dates Name Provider Type Discipline NS 02/26/21 - Mirela Hsu, PT Physical Therapist PT ML 01/02/21 - Leonie Thomas Physical Therapist PT IG 04/19/25 - Hayden Matias, MARY Physical Therapist PT Recommendation and Plan Recommended discharge disposition is based on the functional assessment performed by PT/OT/Speech therapy (as applicable) and may not reflect the medical necessity determined by your provider or services covered by an individual patient's insurance plan or patient resource. Anticipated Discharge Disposition (PT): inpatient rehabilitation facility Planned Therapy Interventions (PT): balance training, bed mobility training, patient/family education, postural re-education, strengthening, transfer training Therapy Frequency (PT): daily Plan of Care Reviewed With: patient Progress: no change Progress: no change Outcome Evaluation: Patient's wound vac without leaks or issues. Patient without complaints. Patient continues to benefit from skilled PT services and NPWT to improve wound healing. Plan of Care Reviewed With: patient Time Calculation PT Charges Row Name 07/14/25 1006 Time Calculation Start Time 1006 -KW Untimed Charges 76644-[id number] Pressure wound to 50 sqcm 10 -KW Total Minutes Untimed Charges Total Minutes 10 -KW Total Minutes 10 -KW User Llanes (r) = Recorded By, (t) = Taken By, (c) = Cosigned By Initials Name Provider Type KW Ashley Sanchez, MARY Physical Therapist Therapy Charges for Today Code Description Service Date Service Provider Modifiers Qty [id number] HC PT NEG PRESS WOUND TO 50SQCM DME1 07/14/2025 Ashley Sanchez, PT 1 PT G-Codes Outcome Measure Options: AM-PAC 6 Clicks Basic Mobility (PT) AM-PAC 6 Clicks Score (PT): 11 AM-PAC 6 Clicks Score (OT): 14 Ashley Sanchez PT 07/14/2025 * Significant Note - JensaraKateIZABELLA - 07/14/2025 6:46 AM EDT Contacted by staffing analyst early in the shift that patient was confused. Ordered UA @ 2200, and offered restraints. RN deferred restraints at this time. Contacted by staffing analyst approximately 4 AM that patient had removed his PICC line. Notified charge nurse. Ordered lactic acid, ABG, and FSBG. Arrived at bedside, patient's FSBG was 75. Patient was confused, and thrashing in the bed. Restraints and Haldol ordered x 1. Seizure pads placed due to patient thrashing and concern for injury. Obtained IV after multiple attempts. Unable to obtain ABG due todue to patient flailing arms, despite restraints, VBG ordered. * Significant Note - Kate Sherwood APRN - 07/13/2025 10:15 PM EDT Contacted by staffing analyst that patient is now confused. According to nursing staff, patient does not appear to be in respiratory distress, and is not requiring additional O2 supplementation. Ordered UA, awaiting results. * Therapy Treatment Note - Fátima Mora, OT - 07/13/2025 1:05 PM EDT Images from the original note were not included. Patient Name: Trung Pool : 1955 Today's Date: 07/13/2025 Admit Date: 06/25/2025 Visit Dx: ICD-10-CM ICD-9-CM 1. Cellulitis of left lower extremity L03.116 682.6 2. Hematuria, unspecified type R31.9 599.70 3. Urinary tract infection associated with indwelling urethral catheter, initial encounter T83.599G854.64 N39.0 599.0 4. Diarrhea, unspecified type R19.7 787.91 5. PAD (peripheral artery disease) I73.9 443.9 6. Wound infection T14.8XXA 958.3 L08.9 7. Critical limb ischemia of left lower extremity I70.222 440.22 Patient Active Problem List Diagnosis Acute deep [...] traumatic brain injury Possible meningioma Moderate malnutrition Seizure disorder Adrenal insufficiency Dysphagia Pressure injury of buttock, stage 1 Pressure ulcers of skin of multiple topographic sites Cellulitis of left foot Gangrene History of DVT (deep vein thrombosis) Severe sepsis Hx of migraine headaches Coronary artery disease involving [place] coronary artery of [place] heart without angina pectoris Left leg cellulitis Altered mental status PAD (peripheral artery disease) Wound infection Type 2 diabetes mellitus with diabetic peripheral angiopathy without gangrene, without long-term current use of insulin Mixed hyperlipidemia S/P AKA (above knee amputation), right CHARLIE (acute kidney injury) Type 2 diabetes mellitus, with long-term current use of insulin Arteriovenous fistula, acquired Cellulitis Acute UTI (urinary tract infection) Diarrhea of presumed infectious origin Acute on chronic blood loss anemia BPH without obstruction/lower urinary tract symptoms GERD without esophagitis Bilateral inguinal hernia Gastroenteritis due to norovirus Past Medical History: Diagnosis Date Anemia Cellulitis Diabetes mellitus Frequent falls History of DVT (deep vein thrombosis) Hyperlipidemia Hypertension Migraines Myocardial infarction Peripheral neuropathy Pneumonia Spinal stenosis Wears dentures FULL Wears glasses Past Surgical History: Procedure Laterality Date ABOVE KNEE AMPUTATION Right AMPUTATION DIGIT Left 01/28/2024 Procedure: SECOND AND THIRD TOE AMPUTATION LEFT; Surgeon: Cecil Buenrostro Jr., MD; Location: [facility]; Service: Orthopedics; Laterality: Left; ANTERIOR CERVICAL DISCECTOMY W/ FUSION Bilateral 07/17/2020 Procedure: Cervical discectomy anterior with fusion C3-4; Surgeon: Tyree Tan MD; Location: [facility]; Service: Neurosurgery; Laterality: Bilateral; AORTOGRAM N/A 01/26/2024 Procedure: ABDOMINAL AORTIC ANGIOGRAM, LLE ANGIOGRAM, LEFT ANTERIOR TIBIAL ATHERECTOMY, LEFT ANTERIOR TIBIAL ANGIOPLASTY; Surgeon: Archie Olvera MD; Location: [facility]; Service: Vascular; Laterality: N/A; CONTRAST: 50 ML, FT: 2 MIN 54 SEC, DOSE: 66 MGY. AORTOGRAM Left 07/03/2025 Procedure: ARTERIOGRAM LOWER EXTREMITY; Surgeon: Vaughn Hollingsworth DO; Location: [facility]; Service: Vascular; Laterality: Left; FT-6MINS 24SEC 140 MGY CONTRAST -15ML BACK SURGERY FOR DISC HERNIATION CARDIAC CATHETERIZATION [...] Location: [facility]; Service: Orthopedics; Laterality: Left; INCISION AND DRAINAGE LEG Left 07/03/2025 Procedure: DEBRIDEMENT WOUND, PLACEMENT OF WOUND VAC; Surgeon: Vaughn Hollingsworth DO; Location: [facility]; Service: Vascular; Laterality: Left; INTERVENTIONAL RADIOLOGY PROCEDURE N/A 05/02/2019 Procedure: IVC FILTER PLACEMENT; Surgeon: Pedro Zapien MD; Location: [facility]; Service: Interventional Radiology INTERVENTIONAL RADIOLOGY PROCEDURE Left 09/07/2024 Procedure: LEFT peroneal arteriovenous fistula embolization - Right femoral access; Surgeon: Jared Marcano MD; Location: [facility]; Service: Cardiovascular; Laterality: Left; Please coordinate with Gautam Patel ([facility] [phone] who will bring coils LUMBAR DISCECTOMY N/A 05/03/2019 Procedure: THORACIC LAMINECTOMY T11-12; Surgeon: Tyree Tan MD; Location: [facility]; Service: Neurosurgery General Information Row Name 07/13/25 1177 OT Time and Intention Subjective Information complains of;pain -CHRISTA Document Type therapy note (daily note) -CHRITSA Mode of Treatment occupational therapy;co-treatment -CHRISTA Patient Effort excellent -CHRISTA Symptoms Noted During/After Treatment fatigue -CHRISTA Row Name 07/13/25 5089 General Information Patient Profile Reviewed yes -CHRISTA Existing Precautions/Restrictions fall;other (see comments) Contact Spore; remote R AKA, chronic [place] catheter; 07/03 transmetatarsal debridement and angiogram LLE with wound vac -CHRISTA Barriers to Rehab medically complex;previous functional deficit;physical barrier - Row Name 07/13/25 1433 Cognition Orientation Status (Cognition) oriented x 3;other (see comments) pt. needs things repeated or explained different ways at times - Row Name 07/13/25 1433 Safety Issues/Impairments Affecting Functional Mobility Safety Issues Affecting Function (Mobility) insight into deficits/self- awareness;safety precaution awareness;safety precautions follow- through/compliance - Impairments Affecting Function (Mobility) balance;coordination;endurance/activity tolerance;pain;range of motion (ROM);sensation/sensory awareness;strength - User Llanes (r) = Recorded By, (t) = Taken By, (c) = Cosigned By Initials Name Provider Type CHRISTA Fátima Mora, OT Occupational Therapist Lymphedema Row Name 07/13/25 1030 Lymphedema Edema Assessment Ptting Edema Category By severity - Pitting Edema Moderate - Recorded by [MF] Duglas Mayes, PT Compression/Skin Care Compression/Skin Care skin care;wrapping location;bandaging - Skin Care washed/dried;lotion applied - Wrapping Location lower extremity - Wrapping Location LE left:;foot to knee - Wrapping Comments unna boot applied in clamshell with kerlix and spandage to secur. - Recorded by [MF] Duglas Mayes, PT User Llanes (r) = Recorded By, (t) = Taken By, (c) = Cosigned By Initials Name Effective Dates Duglas Mayes, PT 10/16/22 - Mobility/ADL's Row Name 07/13/25 1434 Bed Mobility Rolling Left Osteen (Bed Mobility) standby assist -CHRISTA Rolling Right Osteen (Bed Mobility) standby assist;minimum assist (75% patient effort) pt. started SBA and last roll as fatigued to min A -CHRISTA Scooting/Bridging Osteen (Bed Mobility) standby assist -CHRISTA Supine-Sit Osteen (Bed Mobility) standby assist -CHRISTA Sit-Supine Osteen (Bed Mobility) standby assist -CHRISTA Bed Mobility, Safety Issues decreased use of legs for bridging/pushing;impaired trunk control for bed mobility -CHRISTA Assistive Device (Bed Mobility) bed rails;head of bed elevated -CHRISTA Comment, (Bed Mobility) pt. sitting EOB, had to return supine so pt. could scoot to HOB for better w/c placement, pt. scooted self with railing and trendelenburg, pt. noted with large BM, pt. rolled multiple times to be cleaned, pt. then back to EOB and bed to w/c, pt. later lifted back to bed withlift and pt. had to roll further for sling to be removed -CHRISTA Row Name 07/13/25 1434 Transfers Transfers bed-chair transfer -CHRISTA Row Name 07/13/25 143 Bed-Chair Transfer Bed-Chair Osteen (Transfers) moderate assist (50% patient effort);dependent (less than 25% patient effort);2 person assist -CHRISTA Assistive Device (Bed-Chair Transfers) lift device;other (see comments) -CHRISTA Comment, (Bed-Chair Transfer) pt. completed bed to w/c and bed elevated to help with scoot over to w/c, pt. needed overall assist of mod of 2 to block w/c, assist with multiple lines and assist with scoot over to w/c, with bed height had to use left back to w/c, with waiting for lift to charge and get assist to reset lift pt. in w/c grossly 10 minutes, worked with pt. locking and unlocking brakes- Row Name 07/13/25 143 Activities of Daily Living BADL Assessment/Intervention toileting;upper body dressing - Row Name 07/13/25 143 Upper Body Dressing Assessment/Training Osteen Level (Upper Body Dressing) doff;don;moderate assist (50% patient effort) -CHRISTA Position (Upper Body Dressing) supine -CHRISTA Comment, (Upper Body Dressing) soiled gown changed out, pt. limited by lines and positionting - Row Name 07/13/25 1434 Toileting Assessment/Training Osteen Level (Toileting) dependent (less than 25% patient effort);perform perineal hygiene;change pad/brief;adjust/manage clothing -CHRISTA Position (Toileting) supine -CHRISTA User Llanes (r) = Recorded By, (t) = Taken By, (c) = Cosigned By Initials Name Provider Type Fátima Castle, OT Occupational Therapist Obj/Interventions Row Name 07/13/25 1439 Shoulder (Therapeutic Exercise) Shoulder (Therapeutic Exercise) AROM (active range of motion) - Shoulder AROM (Therapeutic Exercise) bilateral;flexion;extension;10 repetitions;sitting - Row Name 07/13/25 1439 Elbow/Forearm (Therapeutic Exercise) Elbow/Forearm (Therapeutic Exercise) strengthening exercise -CHRISTA Elbow/Forearm Strengthening (Therapeutic Exercise) bilateral;flexion;extension;20 repititions;sitting mild to moderate manual resistance given/also working with pt. keeping midline with resistance - Row Name 07/13/25 1439 Motor Skills Therapeutic Exercise shoulder;elbow/forearm - Row Name 07/13/25 1439 Balance Static Sitting Balance supervision - Dynamic Sitting Balance standby assist -CHRISTA Position, Sitting Balance unsupported;sitting edge of bed -CHRISTA Balance Interventions weight shifting activity -CHRISTA Comment, Balance weight shift and scooting to w/c, resistance with TE -CHRISTA User Llanes (r) = Recorded By, (t) = Taken By, (c) = Cosigned By Initials Name Provider Type Fátima Castle, OT Occupational Therapist Goals/Plan Row Name 07/13/25 144 Bed Mobility Goal 1 (OT) Activity/Assistive Device (Bed Mobility Goal 1, OT) rolling to left;rolling to right -CHRISTA Osteen Level/Cues Needed (Bed Mobility Goal 1, OT) minimum assist (75% or more patient effort);verbal cues required;nonverbal cues (demo/gesture) required -CHRISTA Time Frame (Bed Mobility Goal 1, OT) lobsterman goal (LTG);10 days -CHRISTA Progress/Outcomes (Bed Mobility Goal 1, OT) goal met - Row Name 07/13/25 1448 Transfer Goal 1 (OT) Activity/Assistive Device (Transfer Goal 1, OT) [id number] -CHRISTA Osteen Level/Cues Needed (Transfer Goal 1, OT) moderate assist (50-74% patient effort) -CHRISTA Progress/Outcome (Transfer Goal 1, OT) good progress toward goal;goal ongoing - Row Name 07/13/25 1447 Bathing Goal 1 (OT) Activity/Device (Bathing Goal 1, OT) upper body bathing -CHRISTA Osteen Level/Cues Needed (Bathing Goal 1, OT) minimum assist (75% or more patient effort);set-up required -CHRISTA Time Frame (Bathing Goal 1, OT) short term goal (STG);5 days -CHRISTA Progress/Outcomes (Bathing Goal 1, OT) goal ongoing -CHRISTA Row Name 07/13/251443 Toileting Goal 1 (OT) Activity/Device (Toileting Goal 1, OT) adjust/manage clothing;perform perineal hygiene;commode, bedside with drop arms -CHRISTA Osteen Level/Cues Needed (Toileting Goal 1, OT) moderate assist (50-74% patient effort) -CHRISTA Time Frame (Toileting Goal 1, OT) short term goal (STG);5 days -CHRISTA Progress/Outcome (Toileting Goal 1, OT) goal no longer appropriate -CHRISTA Row Name 07/13/251443 Strength Goal 1 (OT) Strength Goal 1 (OT) Pt. will completed UE and core TE with progressive reps and resistance to support ADL and transfer independence. -CHRISTA Time Frame (Strength Goal 1, OT) lobsterman goal (LTG);10 days -CHRISTA Progress/Outcome (Strength Goal 1, OT) continuing progress toward goal;goal ongoing -CHRISTA User Llanes (r) = Recorded By, (t) = Taken By, (c) = Cosigned By Initials Name Provider Type CHRISTA Fátima Mora, OT Occupational Therapist Clinical Impression Row Name 07/13/251440 Pain Assessment Pretreatment Pain Rating 8/10 -CHRISTA Posttreatment Pain Rating 8/10 -CHRISTA Pain Location buttock -CHRISTA Pain Side/Orientation bilateral -CHRISTA Pain Management Interventions positioning techniques utilized -CHRISTA Response to Pain Interventions activity participation with tolerable pain -CHRISTA Pre/Posttreatment Pain Comment pt. was cleaned in supine with new banages placed to protect buttocks with slide -CHRISTA Row Name 07/13/251440 Plan of Care Review Plan of Care Reviewed With patient -CHRISTA Progress improving -CHRISTA Outcome Evaluation Pt. was able to progress today in completing a bed to w/c transfer with mod of 2. Unable to move back to bed due to bed height with w/c. Pt. with overall improving balance and endurance. LE elevated with pillow in bed and while in w/c for edema control. Good participation with core and UE TE. -CHRISTA Row Name 07/13/251440 Therapy Assessment/Plan (OT) Rehab Potential (OT) fair -CHRISTA Therapy Frequency (OT) daily -CHRISTA Row Name 07/13/251440 Therapy Plan Review/Discharge Plan (OT) Anticipated Discharge Disposition (OT) intermediate facility - Row Name 07/13/25 1441 Vital Signs Pre Systolic BP Rehab 124 -CHRISTA Pre Treatment Diastolic BP 69 -CHRISTA Pretreatment Heart Rate (beats/min) 77 -CHRISTA Posttreatment Heart Rate (beats/min) 76 -CHRISTA O2 Delivery Pre Treatment room air -CHRISTA O2 Delivery Intra Treatment room air -CHRISTA O2 Delivery Post Treatment room air -CHRISTA Pre Patient Position Sitting -CHRISTA Intra Patient Position Sitting -CHRISTA Post Patient Position Supine -CHRISTA Row Name 07/13/25 1441 Positioning and Restraints Pre-Treatment Position in bed sitting EOB -CHRISTA Post Treatment Position bed -CHRISTA In Bed fowlers;call light within reach;encouraged to call for assist;exit alarm on;side rails up x2;LLE elevated;L heel elevated;notified ns - User Llanes (r) = Recorded By, (t) = Taken By, (c) = Cosigned By Initials Name Provider Type Fátima Castle, OT Occupational Therapist Outcome Measures Row Name 07/13/25 1445 How much help from another is currently needed... Putting on and taking off regular lower body clothing? 1 -CHRISTA Bathing (including washing, rinsing, and drying) 2 -CHRISTA Toileting (which includes using toilet bed chavis or urinal) 1 -CHRISTA Putting on and taking off regular upper body clothing 3 -CHRISTA Taking care of personal grooming (such as brushing teeth) 3 -CHRISTA Eating meals 4 -CHRISTA AM-PAC 6 Clicks Score (OT) 14 -CHRISTA Row Name 07/13/25 1214 07/13/25 0840 How much help from another person do you currently need... Turning from your back to your side while in flat bed without using bedrails? 3 -SB 3 -SB Moving from lying on back to sitting on the side of a flat bed without bedrails? 3 -SB 3 -SB Moving to and from a bed to a chair (including a wheelchair)? 1 -SB 1 -SB Standing up from a chair using your arms (e.g., wheelchair, bedside chair)? 1 - SB 1 -SB Climbing 3-5 steps with a railing? 1 -SB 1 -SB To walk in hospital room? 1 -SB 1 -SB AM-PAC 6 Clicks Score (PT) 10 -SB 10 -SB Highest Level of Mobility Goal Move to Chair/Commode-4 -SB Move to Chair/Commode-4 -SB Row Name 07/13/25 1445 Functional Assessment Outcome Measure Options AM-PAC 6 Clicks Daily Activity (OT) - User Llanes (r) = Recorded By, (t) = Taken By, (c) = Cosigned By Initials Name Provider Type Fátima Castle, OT Occupational Therapist Iggy Thakur, RN Registered Nurse Occupational Therapy Education Title: PT OT HOMICIDE INVESTIGATOR Therapies (Done) Topic: Occupational Therapy (Done) Point: ADL training (Done) Learning Progress Summary Patient Acceptance, E,D, VU,NR by at 07/13/2025 1446 Comment: transfer safety with lines and wounds, w/c brake use, UE TE Acceptance, E, VU,NR by 1 at 07/10/2025 1624 Comment: OT POC; snf goals; rehab potential; discharge planning Point: Home exercise program (Done) Learning Progress Summary Patient Acceptance, E,D, VU,NR by at 07/13/2025 1446 Comment: transfer safety with lines and wounds, w/c brake use, UE TE Point: Precautions (Done) Learning Progress Summary Patient Acceptance, E,D, VU,NR by at 07/13/2025 1446 Comment: transfer safety with lines and wounds, w/c brake use, UE TE Point: Body mechanics (Done) Learning Progress Summary Patient Acceptance, E,D, VU,NR by at 07/13/2025 1446 Comment: transfer safety with lines and wounds, w/c brake use, UE TE User Llanes Initials Effective Dates Name Provider Type Discipline 03/23/23 - Fátima Mora, OT Occupational Therapist OT [facility] 02/26/21 - Juani Clark OT Occupational Therapist OT OT Recommendation and Plan Recommended discharge disposition is based on the functional assessment performed by PT/OT/Speech therapy (as applicable) and may not reflect the medical necessity determined by your provider or services covered by an individual patient's insurance plan or patient resource. Planned Therapy Interventions (OT): activity tolerance training, adaptive equipment training, BADL retraining, functional balance retraining, occupation/activity based interventions, patient/caregiver education/training, strengthening exercise, transfer/mobility retraining, ROM/therapeutic exercise Therapy Frequency (OT): daily Plan of Care Review Plan of Care Reviewed With: patient Progress: improving Outcome Evaluation: Pt. was able to progress today in completing a bed to w/c transfer with mod of 2. Unable to move back to bed due to bed height with w/c. Pt. with overall improving balance and endurance. LE elevated with pillow in bed and while in w/c for edema control. Good participation with core and UE TE. Time Calculation: Time Calculation- OT Row Name 07/13/25 1446 Time Calculation- OT OT Start Time 1305 -CHRISTA OT Received On 07/13/25 -CHRISTA OT Goal Re-Cert Due Date 07/15/25 -CHRISTA Timed Charges 42340 - OT Therapeutic Exercise Minutes 15 -CHRISTA 28518 - OT Therapeutic Activity Minutes 15 -CHRISTA 39463 - OT Self Care/Mgmt Minutes 15 -CHRISTA Total Minutes Timed Charges Total Minutes 45 -CHRISTA Total Minutes 45 -CHRISTA User Llanes (r) = Recorded By, (t) = Taken By, (c) = Cosigned By Initials Name Provider Type Fátima Castle OT Occupational Therapist Therapy Charges for Today Code Description Service Date Service Provider Modifiers Qty 51149125751 HC OT THER PROC EA 15 MIN 07/13/2025 Fátima Mora OT GO 1 24391095061 HC OT THERAPEUTIC ACT EA 15 MIN 07/13/2025 Fátima Mora OT GO 1 12009941065 HC OT SELF CARE/MGMT/TRAIN EA 15 MIN 07/13/2025 Fátima Mora OT GO 1 Fátima Mora OT 07/13/2025 * Therapy Treatment Note - Hayden Matias, PT - 07/13/2025 1:05 PM EDT Images from the original note were not included. Patient Name: Trung Pool : 1955 Today's Date: 07/13/2025 Admit Date: 06/25/2025 Visit Dx: ICD-10-CM ICD-9-CM 1. Cellulitis of left lower extremity L03.116 682.6 2. Hematuria, unspecified type R31.9 599.70 3. Urinary tract infection associated with indwelling urethral catheter, initial encounter T83.406O723.64 N39.0 599.0 4. Diarrhea, unspecified type R19.7 787.91 5. PAD (peripheral artery disease) I73.9 443.9 6. Wound infection T14.8XXA 958.3 L08.9 7. Critical limb ischemia of left lower extremity I70.222 440.22 Patient Active Problem List Diagnosis Acute deep [...] traumatic brain injury Possible meningioma Moderate malnutrition Seizure disorder Adrenal insufficiency Dysphagia Pressure injury of buttock, stage 1 Pressure ulcers of skin of multiple topographic sites Cellulitis of left foot Gangrene History of DVT (deep vein thrombosis) Severe sepsis Hx of migraine headaches Coronary artery disease involving [place] coronary artery of [place] heart without angina pectoris Left leg cellulitis Altered mental status PAD (peripheral artery disease) Wound infection Type 2 diabetes mellitus with diabetic peripheral angiopathy without gangrene, without long-term current use of insulin Mixed hyperlipidemia S/P AKA (above knee amputation), right CHARLIE (acute kidney injury) Type 2 diabetes mellitus, with long-term current use of insulin Arteriovenous fistula, acquired Cellulitis Acute UTI (urinary tract infection) Diarrhea of presumed infectious origin Acute on chronic blood loss anemia BPH without obstruction/lower urinary tract symptoms GERD without esophagitis Bilateral inguinal hernia Gastroenteritis due to norovirus Past Medical History: Diagnosis Date Anemia Cellulitis [...] TIBIAL ANGIOPLASTY; Surgeon: Archie Olvera MD; Location: [facility]; Service: Vascular; Laterality: N/A; CONTRAST: 50 ML, FT: 2 MIN 54 SEC, DOSE: 66 MGY. AORTOGRAM Left 07/03/2025 Procedure: ARTERIOGRAM LOWER EXTREMITY; Surgeon: Vaughn Hollingsworth DO; Location: [facility]; Service: Vascular; Laterality: Left; FT-6MINS 24SEC 140 MGY CONTRAST -15ML BACK SURGERY FOR DISC HERNIATION CARDIAC CATHETERIZATION CARDIAC CATHETERIZATION N/A 09/04/2024 Procedure: Peripheral angiography - Left lower extremity angio - Right femoral access; Surgeon: Jared Marcano MD; Location: [facility]; Service: Peripheral Vascular; Laterality: N/A; CORONARY ANGIOPLASTY WITH STENT PLACEMENT stent x 1 INCISION AND DRAINAGE FOOT Left 06/17/2023 Procedure: LEFT FOOT DEBRIDEMENT WOUND VACUUM ASSISTED CLOSURE; Surgeon: Cecil Buenrostro Jr., MD;Location: [facility]; Service: Orthopedics; Laterality: Left; INCISION AND DRAINAGE LEG Left 07/25/2023 Procedure: INCISION AND DRAINAGE HEEL, WOUND VAC; Surgeon: Cecil Buenrostro Jr., MD; Location: [facility]; Service: Orthopedics; Laterality: Left; INCISION AND DRAINAGE LEG Left 07/03/2025 Procedure: DEBRIDEMENT WOUND, PLACEMENT OF WOUND VAC; Surgeon: Vaughn Hollingsworth DO; Location: [facility]; Service: Vascular; Laterality: Left; INTERVENTIONAL RADIOLOGY PROCEDURE N/A 05/02/2019 Procedure: IVC FILTER PLACEMENT; Surgeon: Pedro Zapien MD; Location: [facility]; Service: Interventional Radiology INTERVENTIONAL RADIOLOGY PROCEDURE Left 09/07/2024 Procedure: LEFT peroneal arteriovenous fistula embolization - Right femoral access; Surgeon: Jared Marcano MD; Location: [facility]; Service: Cardiovascular; Laterality: Left; Please coordinate with Gautam Patel ([facility]) [phone] who will bring coils LUMBAR DISCECTOMY N/A 05/03/2019 Procedure: THORACIC LAMINECTOMY T11-12; Surgeon: Tyree Tan MD; Location: [facility]; Service: Neurosurgery General Information Row Name 07/13/25 1448 Physical Therapy Time and Intention Document Type therapy note (daily note) -IG Mode of Treatment co-treatment;physical therapy -IG Row Name 07/13/25 1448 General Information Patient Profile Reviewed yes -IG Existing Precautions/Restrictions fall;other (see comments) Contact Spore; remote R AKA, chronic [place] Santos catheter; 07/03 transmetatarsal debridement and angiogram LLE with wound vac -IG Barriers to Rehab medically complex;previous functional deficit -IG Row Name 07/13/25 1448 Cognition Orientation Status (Cognition) oriented x 3 -IG Row Name 07/13/25 1448 Safety Issues/Impairments Affecting Functional Mobility Safety Issues Affecting Function (Mobility) insight into deficits/self- awareness;sequencing abilities;awareness of need for assistance -IG Impairments Affecting Function (Mobility) balance;coordination;endurance/activity tolerance;pain;range of motion (ROM);sensation/sensory awareness;strength -IG Comment, Safety Issues/Impairments (Mobility) cued for sequencing -IG User Llanes (r) = Recorded By, (t) = Taken By, (c) = Cosigned By Initials Name Provider Type IG Hayden Matias, PT Physical Therapist Mobility Row Name 07/13/25 1449 Bed Mobility Bed Mobility rolling left;rolling right;[id number] -IG Rolling Left Osteen (Bed Mobility) standby assist -IG Rolling Right Osteen (Bed Mobility) standby assist;minimum assist (75% patient effort) pt. started SBA and last roll as fatigued to min A -IG Scooting/Bridging Osteen (Bed Mobility) standby assist -IG Supine-Sit Osteen (Bed Mobility) standby assist -IG Sit-Supine Osteen (Bed Mobility) standby assist -IG Assistive Device (Bed Mobility) bed rails;head of bed elevated -IG Comment, (Bed Mobility) Patient utilizies bed functions such as trendelenburg to scoot toward HOB. uses railing for rolling. -IG Row Name 07/13/25 1449 Bed-Chair Transfer Bed-Chair Osteen (Transfers) moderate assist (50% patient effort);dependent (less than 25% patient effort);2 person assist -IG Comment, (Bed-Chair Transfer) Patient was able to perform slide transfer from bed to w/c w/ modAx2 for blocking/line management/scooting assistance. D/t height differential, ceiling lift was used to transfer patient back to bed from w/c. -IG User Llanes (r) = Recorded By, (t) = Taken By, (c) = Cosigned By Initials Name Provider Type Hayden Anne, PT Physical Therapist Obj/Interventions Row Name 07/13/25 1453 Motor Skills Motor Skills functional endurance -IG Functional Endurance minimal fatigue w/ transfer -IG Row Name 07/13/25 145 Balance Balance Assessment sitting static balance;sitting dynamic balance -IG Static Sitting Balance supervision -IG Dynamic Sitting Balance contact guard -IG Position, Sitting Balance unsupported;sitting edge of bed -IG Comment, Balance no LOB w/ seated balance or transfer -IG User Llanes (r) = Recorded By, (t) = Taken By, (c) = Cosigned By Initials Name Provider Type Hayden Anne, PT Physical Therapist Goals/Plan No documentation. Clinical Impression Row Name 07/13/25 145 Pain Pretreatment Pain Rating 04/22 -IG Posttreatment Pain Rating 04/22 -IG Pain Location buttock -IG Pain Side/Orientation generalized -IG Pain Management Interventions exercise or physical activity utilized -IG Response to Pain Interventions activity participation with tolerable pain -IG Row Name 07/13/25 145 Plan of Care Review Plan of Care Reviewed With patient -IG Progress improving -IG Outcome Evaluation Patient participated well in therapy today and made good progress performing slide transfer from bed to w/c. Patient remains limited by deconditioning/weakness and would cont to benefit from skilled IPPT. -IG Row Name 07/13/25 145 Therapy Assessment/Plan (PT) Patient/Family Therapy Goals Statement (PT) to become more independent -IG Rehab Potential (PT) good -IG Criteria for Skilled Interventions Met (PT) yes;meets criteria;skilled treatment is necessary -IG Therapy Frequency (PT) daily -IG Predicted Duration of Therapy Intervention (PT) 10 days -IG Row Name 07/13/25 145 Vital Signs Pre Systolic BP Rehab 124 -IG Pre Treatment Diastolic BP 69 -IG Pretreatment Heart Rate (beats/min) 77 -IG Posttreatment Heart Rate (beats/min) 76 -IG Row Name 07/13/25 145 Positioning and Restraints Pre-Treatment Position in bed -IG Post Treatment Position bed -IG In Bed notified nsg;supine;call light within reach;encouraged to call for assist;exit alarm on -IG User Llanes (r) = Recorded By, (t) = Taken By, (c) = Cosigned By Initials Name Provider Type Hayden Anne, PT Physical Therapist Outcome Measures Row Name 07/13/25 1456 07/13/25 1214 How much help from another person do you currently need... Turning from your back to your side while in flat bed without using bedrails? 3 -IG 3 -SB Moving from lying on back to sitting on the side of a flat bed without bedrails? 3 -IG 3 -SB Moving to and from a bed to a chair (including a wheelchair)? 2 -IG 1 -SB Standing up from a chair using your arms (e.g., wheelchair, bedside chair)? 1 - IG 1 -SB Climbing 3-5 steps with a railing? 1 -IG 1 -SB To walk in hospital room? 1 -IG 1 -SB AM-PAC 6 Clicks Score (PT) 11 -IG 10 -SB Highest Level of Mobility Goal Move to Chair/Commode-4 -IG Move to Chair/Commode-4 -SB Row Name 07/13/25 0840 How much help from another person do you currently need... Turning from your back to your side while in flat bed without using bedrails? 3 -SB Moving from lying on back to sitting on the side of a flat bed without bedrails? 3 -SB Moving to and from a bed to a chair (including a wheelchair)? 1 -SB Standing up from a chair using your arms (e.g., wheelchair, bedside chair)? 1 -SB Climbing 3-5 steps with a railing? 1 -SB To walk in hospital room? 1 -SB AM-PAC 6 Clicks Score (PT) 10 -SB Highest Level of Mobility Goal Move to Chair/Commode-4 -SB Row Name 07/13/25 1456 07/13/25 1445 Functional Assessment Outcome Measure Options AM-PAC 6 Clicks Basic Mobility (PT) -IG AM-PAC 6 Clicks Daily Activity (OT)-CHRISTA User Llanes (r) = Recorded By, (t) = Taken By, (c) = Cosigned By Initials Name Provider Type Fátima Castle, OT Occupational Therapist Iggy Thakur, RN Registered Nurse Hayden Anne, PT Physical Therapist Physical Therapy Education Title: PT OT HOMICIDE INVESTIGATOR Therapies (Done) Topic: Physical Therapy (Done) Point: Mobility training (Done) Learning Progress Summary Patient Acceptance, E, VU by IG at 07/13/20251456 Comment: PT POC Acceptance, E, VU by IG at 07/10/2025 1532 Comment: PT POC Acceptance, E, VU by IG at 07/05/2025 1624 Comment: PT POC Acceptance, E, VU,NR by ML at 06/29/2025 0907 Acceptance, E, VU,NR by NS at 06/26/2025 1618 Point: Home exercise program (Done) Learning Progress Summary Patient Acceptance, E, VU by IG at 07/13/20251456 Comment: PT POC Acceptance, E, VU by IG at 07/10/2025 153 Comment: PT POC Acceptance, E, VU by IG at 07/05/2025 162 Comment: PT POC Acceptance, E, VU,NR by NS at 06/26/2025 1618 Point: Body mechanics (Done) Learning Progress Summary Patient Acceptance, E, VU by IG at 07/13/20251456 Comment: PT POC Acceptance, E, VU by IG at 07/10/2025 1532 Comment: PT POC Acceptance, E, VU by IG at 07/05/2025 1624 Comment: PT POC Acceptance, E, VU,NR by NS at 06/26/2025 1618 Point: Precautions (Done) Learning Progress Summary Patient Acceptance, E, VU by IG at 07/13/2025 145 Comment: PT POC Acceptance, E, VU by IG at 07/10/2025 1532 Comment: PT POC Acceptance, E, VU by IG at 07/05/2025 1624 Comment: PT POC Acceptance, E, VU,NR by ML at 06/29/2025 0907 Acceptance, E, VU,NR by NS at 06/26/2025 1618 User Llanes Initials Effective Dates Name Provider Type Discipline [facility] 02/26/21 - Mirela Hsu, PT Physical Therapist PT [facility] 01/02/21 - Leonie Thomas Physical Therapist PT [facility] 04/19/25 - Hayden Matias, PT Physical Therapist PT PT Recommendation and Plan Recommended discharge disposition is based on the functional assessment performed by PT/OT/Speech therapy (as applicable) and may not reflect the medical necessity determined by your provider or services covered by an individual patient's insurance plan or patient resource. Planned Therapy Interventions (PT): balance training, bed mobility training, patient/family education, postural re-education, strengthening, transfer training Therapy Frequency (PT): daily Progress: improving Outcome Evaluation: Patient participated well in therapy today and made good progress performing slide transfer from bed to w/c. Patient remains limited by deconditioning/weakness and would cont to benefit from skilled IPPT. Time Calculation: PT Charges Row Name 07/13/25 1458 07/13/25 1030 Time Calculation Start Time 1305 -IG 1030 -MF PT Received On 07/13/25 -IG -- PT Goal Re-Cert Due Date -- 07/20/25 -MF Timed Charges 65626 - PT Therapeutic Activity Minutes 42 -IG -- Untimed Charges 37289-Jcvs Boot -- 10 -MF 32753-Yqh Pressure wound to 50 sqcm -- 25 -MF Total Minutes Timed Charges Total Minutes 42 -IG -- Untimed Charges Total Minutes -- 35 -MF Total Minutes 42 -IG 35 -MF User Llanes (r) = Recorded By, (t) = Taken By, (c) = Cosigned By Initials Name Provider Type Duglas Mayes, PT Physical Therapist Hayden Matias, MARY Physical Therapist Therapy Charges for Today Code Description Service Date Service Provider Modifiers Qty [id number] PT THERAPEUTIC ACT EA 15 MIN 07/13/2025 Hayden Matias, PT GP 3 PT G-Codes Outcome Measure Options: AM-PAC 6 Clicks Basic Mobility (PT) AM-PAC 6 Clicks Score (PT): 11 AM-PAC 6 Clicks Score (OT): 14 PT Discharge Summary Anticipated Discharge Disposition (PT): inpatient rehabilitation facility Hayden Matias PT 07/13/2025 * Therapy Wound Care Treatment - Duglas Mayes, PT - 07/13/2025 12:28 PM EDT Images from the original note were not included. Acute Care - Wound/Debridement Treatment Note [facility] Patient Name: Trung Pool : 1955 Today's Date: 07/13/2025 Admit Date: 06/25/2025 Visit Dx: ICD-10-CM ICD-9-CM 1. Cellulitis of left lower extremity L03.116 682.6 2. Hematuria, unspecified type R31.9 599.70 3. Urinary tract infection associated with indwelling urethral catheter, initial encounter T83.425L591.64 N39.0 599.0 4. Diarrhea, unspecified type R19.7 787.91 5. PAD (peripheral artery disease) I73.9 443.9 6. Wound infection T14.8XXA 958.3 L08.9 7. Critical limb ischemia of left lower extremity I70.222 440.22 Patient Active Problem List Diagnosis Acute deep [...] traumatic brain injury Possible meningioma Moderate malnutrition Seizure disorder Adrenal insufficiency Dysphagia Pressure injury of buttock, stage 1 Pressure ulcers of skin of multiple topographic sites Cellulitis of left foot Gangrene History of DVT (deep vein thrombosis) Severe sepsis Hx of migraine headaches Coronary artery disease involving [place] coronary artery of [place] heart without angina pectoris Left leg cellulitis Altered mental status PAD (peripheral artery disease) Wound infection Type 2 diabetes mellitus with diabetic peripheral angiopathy without gangrene, without long-term current use of insulin Mixed hyperlipidemia S/P AKA (above knee amputation), right CHARLIE (acute kidney injury) Type 2 diabetes mellitus, with long-term current use of insulin Arteriovenous fistula, acquired Cellulitis Acute UTI (urinary tract infection) Diarrhea of presumed infectious origin Acute on chronic blood loss anemia BPH without obstruction/lower urinary tract symptoms GERD without esophagitis Bilateral inguinal hernia Gastroenteritis due to norovirus Past Medical History: Diagnosis Date Anemia Cellulitis [...] 2 MIN 54 SEC, DOSE: 66 MGY. AORTOGRAM Left 07/03/2025 Procedure: ARTERIOGRAM LOWER EXTREMITY; Surgeon: Vaughn Hollingsworth DO; Location: [facility]; Service: Vascular; Laterality: Left; FT-6MINS 24SEC 140 MGY CONTRAST -15ML BACK SURGERY FOR DISC HERNIATION CARDIAC CATHETERIZATION CARDIAC CATHETERIZATION N/A 09/04/2024 Procedure: Peripheral angiography - Left lower extremity angio - Right femoral access; Surgeon: Jared Marcaon MD; Location: [facility]; Service: Peripheral Vascular; Laterality: N/A; CORONARY ANGIOPLASTY WITH STENT PLACEMENT stent x 1 INCISION AND DRAINAGE FOOT Left 06/17/2023 Procedure: LEFT FOOT DEBRIDEMENT WOUND VACUUM ASSISTED CLOSURE; Surgeon: Cecil Buenrostro Jr., MD;Location: [facility]; Service: Orthopedics; Laterality: Left; INCISION AND DRAINAGE LEG Left 07/25/2023 Procedure: INCISION AND DRAINAGE HEEL, WOUND VAC; Surgeon: Cecil Buenrostro Jr., MD; Location: [facility]; Service: Orthopedics; Laterality: Left; INCISION AND DRAINAGE LEG Left 07/03/2025 Procedure: DEBRIDEMENT WOUND, PLACEMENT OF WOUND VAC; Surgeon: Vaughn Hollingsworth DO; Location: [facility]; Service: Vascular; Laterality: Left; INTERVENTIONAL RADIOLOGY PROCEDURE N/A 05/02/2019 Procedure: IVC FILTER PLACEMENT; Surgeon: Pedro Zaipen MD; Location: [facility]; Service: Interventional Radiology INTERVENTIONAL RADIOLOGY PROCEDURE Left 09/07/2024 Procedure: LEFT peroneal arteriovenous fistula embolization - Right femoral access; Surgeon: Jared Marcano MD; Location: [facility]; Service: Cardiovascular; Laterality: Left; Please coordinate with Gautam Patel ([facility]) [phone] who will bring coils LUMBAR DISCECTOMY N/A 05/03/2019 Procedure: THORACIC LAMINECTOMY T11-12; Surgeon: Tyree Tan MD; Location: [facility]; Service: Neurosurgery Wound 01/15/24 1941 Left lower leg Other (comment) (Active) Periwound Care dry periwound area maintained 07/13/25 1000 Wound 01/28/24 Left anterior second toe Incision (Active) Dressing Appearance intact;moist drainage 07/13/25 1030 Dressing Removed Type other (see comments) 07/13/25 1030 Confirmed Empty Wound Bed Yes, visual inspection of wound bed 07/13/25 1030 Base moist;pink;red 07/13/25 1030 Periwound pink;redness 07/13/25 1030 Periwound Temperature warm 07/13/25 1030 Periwound Skin Turgor soft 07/13/25 1030 Edges irregular 07/13/25 1030 Drainage Characteristics/Odor serosanguineous 07/13/25 1030 Drainage Amount small 07/13/25 1030 Care, Wound irrigated with;wound cleanser 07/13/25 1030 Dressing Care dressing changed 07/13/25 1030 Periwound Care cleansed with pH balanced cleanser 07/13/25 1030 Wound Left posterior heel (Active) Dressing Appearance intact 07/13/25 1030 Dressing Removed Type gauze 07/13/25 1030 Confirmed Empty Wound Bed Yes, visual inspection of wound bed 07/13/25 1030 Base moist;pink 07/13/25 1030 Periwound intact;dry 07/13/25 1030 Periwound Temperature warm 07/13/25 1030 Periwound Skin Turgor soft 07/13/25 1030 Edges irregular 07/13/25 1030 Drainage Characteristics/Odor serosanguineous 07/13/25 1030 Drainage Amount small 07/13/25 1030 Care, Wound irrigated with;wound cleanser 07/13/25 1030 Dressing Care dressing changed 07/13/25 1030 Periwound Care dry periwound area maintained 07/13/25 1030 Wound 06/26/25 0150 Left medial coccyx Pressure Injury (Active) Dressing Appearance dry;intact 07/13/25 1000 Closure None 07/13/25 1000 Base red;white;moist 07/13/25 1000 Periwound moist;pink;redness 07/13/25 1000 Periwound Temperature warm 07/13/25 1000 Periwound Skin Turgor soft 07/13/25 1000 Care, Wound cleansed with 07/12/25 2030 Dressing Care silicone border foam 07/12/25 2030 Periwound Care dry periwound area maintained 07/13/25 1000 Wound 06/26/25 0150 Left posterior greater trochanter Pressure Injury (Active) Dressing Appearance open to air 07/13/25 1000 Closure Open to air 07/13/25 1000 Base red;moist 07/13/25 1000 Periwound pink;moist 07/13/25 1000 Care, Wound cleansed with 07/12/25 2030 Dressing Care silicone border foam 07/13/25 1000 Wound 06/26/25 0150 Right posterior greater trochanter Pressure Injury (Active) Dressing Appearance open to air 07/13/25 1000 Base moist;red 07/13/25 1000 Care, Wound cleansed with 07/12/25 2030 Dressing Care silicone border foam 07/12/25 2030 Periwound Care dry periwound area maintained 07/13/25 1000 Wound 07/03/25 Right anterior groin Surgical Puncture (Active) Dressing Appearance open to air 07/13/25 1000 Wound 07/03/25 1535 Right anterior groin Traumatic Skin Tear (Active) Dressing Appearance open to air 07/13/25 1000 NPWT (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 Wound Therapy) 07/03/25 LEFT FOOT (Active) Therapy Setting continuous therapy 07/13/25 1030 Dressing foam, black 07/13/25 1030 Contact Layer other (see comments) 07/13/25 1030 Pressure Setting 125 mmHg 07/13/25 1030 Sponges Inserted 1 07/13/25 1030 Sponges Removed 1 07/13/25 1030 Finger sweep complete Yes 07/13/25 1030 Lymphedema Row Name 07/13/25 1030 Lymphedema Edema Assessment Ptting Edema Category By severity -MF Pitting Edema Moderate -MF Compression/Skin Care Compression/Skin Care skin care;wrapping location;bandaging -MF Skin Care washed/dried;lotion applied -MF Wrapping Location lower extremity -MF Wrapping Location LE left:;foot to knee - Wrapping Comments unna boot applied in clamshell with kerlix and spandage to secur. - User Llanes (r) = Recorded By, (t) = Taken By, (c) = Cosigned By Initials Name Provider Type MF Duglas Mayes, PT Physical Therapist WOUND DEBRIDEMENT Total area of Debridement: ~10cm2 Debridement Site 1 Location- Site 1: LLE Selective Debridement- Site 1: Wound Surface <20cmsq Instruments- Site 1: tweezers Excised Tissue Description- Site 1: moderate, other (comment) (crusted nonviable skin / scabs with intact skin underneath) Bleeding- Site 1: none PT Assessment (Last 12 Hours) PT Evaluation and Treatment Row Name 07/13/25 1030 Physical Therapy Time and Intention Subjective Information complains of;weakness;fatigue;pain - Document Type therapy note (daily note);wound care - Mode of Treatment individual therapy;physical therapy - Row Name 07/13/25 1030 Pain Pain Location extremity - Pain Side/Orientation left;lower - Additional Documentation Pain Scale: FACES Pre/Post-Treatment (Group) - Row Name 07/13/25 1030 Pain Scale: FACES Pre/Post-Treatment Pain: FACES Scale, Pretreatment 4-->hurts little more - Posttreatment Pain Rating 4-->hurts little more - Row Name Wound 06/26/25 0150 Left medial coccyx Pressure Injury Wound - Properties Group Placement Date: 06/26/25 Placement Time: 149 - Present on Original Admission: Y -EW Side: Left -EW Orientation: medial -EW Location: coccyx -EW Primary Wound Type: Pressure Inj -EW Retired Wound - Properties Group Placement Date: 06/26/25 Placement Time: 0 - Present on Original Admission: Y -EW Side: Left -EW Orientation: medial -EW Location: coccyx -EW Retired Wound - Properties Group Placement Date: 06/26/25 Placement Time: 0 -EW Present on Original Admission: Y -EW Side: Left -EW Orientation: medial -EW Location: coccyx -EW Retired Wound - Properties Group Date first assessed: 06/26/25 Time first assessed: 149 - Present on Original Admission: Y -EW Side: Left -EW Location: coccyx -EW Row Name Wound 06/26/25 0150 Left posterior greater trochanter Pressure Injury Wound - Properties Group Placement Date: 06/26/25 Placement Time: 0150 -EW Present on Original Admission: Y -EW Side: Left -EW Orientation: posterior -EW Location: greater trochanter -EW Primary Wound Type: Pressure Inj -EW Retired Wound - Properties Group Placement Date: 06/26/25 Placement Time: 0150 -EW Present on Original Admission: Y -EW Side: Left -EW Orientation: posterior -EW Location: greater trochanter -EW Retired Wound - Properties Group Placement Date: 06/26/25 Placement Time: 0150 -EW Present on Original Admission: Y -EW Side: Left -EW Orientation: posterior -EW Location: greater trochanter -EW Retired Wound - Properties Group Date first assessed: 06/26/25 Time first assessed: 0150 -EW Present on Original Admission: Y -EW Side: Left -EW Location: greater trochanter -EW Row Name Wound 06/26/25 0150 Right posterior greater trochanter Pressure Injury Wound - Properties Group Placement Date: 06/26/25 Placement Time: 0150 -EW Present on Original Admission: Y -EW Side: Right -EW Orientation: posterior -EW Location: greater trochanter -EW PrimaryWound Type: Pressure Inj -EW Retired Wound - Properties Group Placement Date: 06/26/25 Placement Time: 0150 -EW Present on Original Admission: Y -EW Side: Right -EW Orientation: posterior -EW Location: greater trochanter -EW Retired Wound - Properties Group Placement Date: 06/26/25 Placement Time: 0150 -EW Present on Original Admission: Y -EW Side: Right -EW Orientation: posterior -EW Location: greater trochanter -EW Retired Wound - Properties Group Date first assessed: 06/26/25 Time first assessed: 0150 -EW Present on Original Admission: Y -EW Side: Right -EW Location: greater trochanter -EW Row Name 07/13/25 1030 Wound Left posterior heel Wound - Properties Group Present on Original Admission: Y -MR Side: Left -MR Orientation: posterior-MR Location: heel -MR Primary Wound Type: Pressure inj -MR Dressing Appearance intact -MF Dressing Removed Type gauze -MF Confirmed Empty Wound Bed Yes, visual inspection of wound bed -MF Base moist;pink -MF Periwound intact;dry -MF Periwound Temperature warm -MF Periwound Skin Turgor soft -MF Edges irregular -MF Drainage Characteristics/Odor serosanguineous -MF Drainage Amount small -MF Care, Wound irrigated with;wound cleanser -MF Dressing Care dressing changed -MF Periwound Care dry periwound area maintained -MF Retired Wound - Properties Group Present on Original Admission: Y -MR Side: Left -MR Orientation: posterior -MR Location: heel -MR Primary Wound Type: Pressure inj -MR Retired Wound - Properties Group Present on Original Admission: Y -MR Side: Left -MR Orientation: posterior -MR Location: heel -MR Primary Wound Type: Pressure inj -MR Retired Wound - Properties Group Present on Original Admission: Y -MR Side: Left -MR Location: heel-MR Primary Wound Type: Pressure inj -MR Row Name 07/13/25 1030 Wound 01/28/24 Left anterior second toe Incision Wound - Properties Group Placement Date: 01/28/24 -MJ Present on Original Admission: N -MJ Side: Left -MJ Orientation: anterior -MJ Location: second toe -MJ Primary Wound Type: Incision -MJ Dressing Appearance intact;moist drainage -MF Dressing Removed Type other (see comments) vac -MF Confirmed Empty Wound Bed Yes, visual inspection of wound bed -MF Base moist;pink;red -MF Periwound pink;redness -MF Periwound Temperature warm -MF Periwound Skin Turgor soft -MF Edges irregular -MF Drainage Characteristics/Odor serosanguineous -MF Drainage Amount small -MF Care, Wound irrigated with;wound cleanser -MF Dressing Care dressing changed -MF Periwound Care cleansed with pH balanced cleanser -MF Retired Wound - Properties Group Placement Date: 01/28/24 -MJ Present on Original Admission: N -MJ Side: Left -MJ Orientation: anterior -MJ Location: second toe -MJ Primary Wound Type: Incision -MJ Retired Wound - Properties Group Placement Date: 01/28/24 -MJ Present on Original Admission: N -MJ Side: Left -MJ Orientation: anterior -MJ Location: second toe -MJ Primary Wound Type: Incision -MJ Retired Wound - Properties Group Date first assessed: 01/28/24 -MJ Present on Original Admission: N-MJ Side: Left -MJ Location: second toe -MJ Primary Wound Type: Incision -MJ Row Name Wound 01/15/241940 Left lower leg Other (comment) Wound - Properties Group Placement Date: 01/15/24 -MM Placement Time: 1940 -MM Present on Original Admission: Y -MM Side: Left -MM Orientation: lower -MM Location: leg -MM Primary Wound Type: Other -MM, cellulitis Retired Wound - Properties Group Placement Date: 01/15/24 -MM Placement Time: 1940MM Present on Original Admission: Y -MM Side: Left -MM Orientation: lower -MM Location: leg -MM Primary Wound Type: Other -MM, cellulitis Retired Wound - Properties Group Placement Date: 01/15/24 -MM Placement Time: 1940 -MM Present on Original Admission: Y -MM Side: Left -MM Orientation: lower -MM Location: leg -MM Primary Wound Type:Other -MM, cellulitis Retired Wound - Properties Group Date first assessed: 01/15/24 -MM Time first assessed: 1940 -MM Present on Original Admission: Y -MM Side: Left -MM Location: leg -MM Primary Wound Type: Other -MM, cellulitis Row Name Wound 07/03/25 Right anterior groin Surgical Puncture Wound - Properties Group Placement Date: 07/03/25 -RS Present on Original Admission: N -RS Side: Right -RS Orientation: anterior -RS Location: groin -RS Primary Wound Type: Surgical -RS Secondary Wound Type - Surgical: Puncture -RS Retired Wound - Properties Group Placement Date: 07/03/25 -RS Present on Original Admission: N -RS Side: Right -RS Orientation: anterior -RS Location: groin -RS Retired Wound - Properties Group Placement Date: 07/03/25 -RS Present on Original Admission: N -RS Side: Right -RS Orientation: anterior -RS Location: groin -RS Retired Wound - Properties Group Date first assessed: 07/03/25 -RS Present on Original Admission: N-RS Side: Right -RS Location: groin -RS Row Name Wound 07/03/25 1535 Right anterior groin Traumatic Skin Tear Wound - Properties Group Placement Date: 07/03/25 -RS Placement Time: 1535 -RS Side: Right -RS Orientation: anterior -RS Location: groin -RS Primary Wound Type: Traumatic -RS Secondary Wound Type - Traumatic: Skin Tear -RS Retired Wound - Properties Group Placement Date: 07/03/25 -RS Placement Time: 1534 -RS Side: Right -RS Orientation: anterior -RS Location: groin -RS Retired Wound - Properties Group Placement Date: 07/03/25 -RS Placement Time: 1535 -RS Side: Right -RS Orientation: anterior -RS Location: groin -RS Retired Wound - Properties Group Date first assessed: 07/03/25 -RS Time first assessed: 1534 -RS Side: Right -RS Location: groin -RS Row Name 07/13/25 1030 NPWT (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 Wound Therapy) 07/03/25 LEFT FOOT NPWT (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 Wound Therapy) - Properties Group Placement Date: 07/03/25 -RS Location: LEFT FOOT -RS Additional Comments: PER MD CLARKE REYNOSO Therapy Setting continuous therapy - Dressing foam, black -MF Contact Layer other (see comments) sheree Ag -MF Pressure Setting 125 mmHg -MF Sponges Inserted 1 -MF Sponges Removed 1 -MF Finger sweep complete Yes - 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) - Properties Group Placement Date: 07/03/25 -RS Location: LEFT FOOT -RS Additional Comments: PER MD CLARKE REYNOSO 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) - Properties Group Placement Date: 07/03/25 -RS Location: LEFT FOOT -RS Additional Comments: PER MD CLARKE REYNOSO 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) - Properties Group Placement Date: 07/03/25 -RS Location: LEFT FOOT -RS Additional Comments: PER MD CLARKE REYNOSO Row Name 07/13/25 103 Coping Observed Emotional State calm;cooperative - Verbalized Emotional State acceptance - Trust Relationship/Rapport care explained - Row Name 07/13/25 103 Plan of Care Review Plan of Care Reviewed With patient - Outcome Evaluation wound vac dressing and unna boot changed today with good improvement noted in LEskin integrity. Pt cont to sit EOB with LE in dependent position. PT educated pt on need for LE elevation to help limit LE edema and improve skin integrity. PT will cont with unna boot change and wound vac change every 2-3 days. - Row Name 07/13/25 1030 Positioning and Restraints Pre-Treatment Position in bed - Post Treatment Position bed -MF In Bed supine;call light within reach - User Llanes (r) = Recorded By, (t) = Taken By, (c) = Cosigned By Initials Name Provider Type MF Duglas Mayes, PT Physical Therapist MR CharlesMargarita, RN Registered Nurse Kristan Giordano RN Registered Nurse Henrietta Blakely RN Registered Nurse Mary Mayes RN Registered Nurse Alessandra Whitaker RN Registered Nurse Physical Therapy Education Title: PT OT HOMICIDE INVESTIGATOR Therapies (In Progress) Topic: Physical Therapy (Done) Point: Mobility training (Done) Learning Progress Summary Patient Acceptance, E, VU by IG at 07/10/2025 153 Comment: PT POC Acceptance, E, VU by IG at 07/05/2025 162 Comment: PT POC Acceptance, E, VU,NR by ML at 06/29/2025 0907 Acceptance, E, VU,NR by NS at 06/26/2025 161 Point: Home exercise program (Done) Learning Progress Summary Patient Acceptance, E, VU by IG at 07/10/2025 153 Comment: PT POC Acceptance, E, VU by IG at 07/05/2025 162 Comment: PT POC Acceptance, E, VU,NR by NS at 06/26/2025 1618 Point: Body mechanics (Done) Learning Progress Summary Patient Acceptance, E, VU by IG at 07/10/2025 1532 Comment: PT POC Acceptance, E, VU by IG at 07/05/2025 1624 Comment: PT POC Acceptance, E, VU,NR by NS at 06/26/2025 1618 Point: Precautions (Done) Learning Progress Summary Patient Acceptance, E, VU by IG at 07/10/2025 1532 Comment: PT POC Acceptance, E, VU by IG at 07/05/2025 162 Comment: PT POC Acceptance, E, VU,NR by ML at 06/29/2025 0907 Acceptance, E, VU,NR by NS at 06/26/2025 1618 User Llanes Initials Effective Dates Name Provider Type Discipline NS 02/26/21 - Mirela Hsu, PT Physical Therapist PT ML 01/02/21 - Leonie Thomas Physical Therapist PT IG 04/19/25 - Hayden Matias, PT Physical Therapist PT Recommendation and Plan Recommended discharge disposition is based on the functional assessment performed by PT/OT/Speech therapy (as applicable) and may not reflect the medical necessity determined by your provider or services covered by an individual patient's insurance plan or patient resource. Anticipated Discharge Disposition (PT): inpatient rehabilitation facility Planned Therapy Interventions (PT): balance training, bed mobility training, patient/family education, postural re-education, strengthening, transfer training Therapy Frequency (PT): daily Plan of Care Reviewed With: patient Outcome Evaluation: wound vac dressing and unna boot changed today with good improvement noted in LE skin integrity. Pt cont to sit EOB with LE in dependent position. PT educated pt on need for LE elevation to help limit LE edema and improve skin integrity. PT will cont with unna boot change and wound vac change every 2-3 days. Plan of Care Reviewed With: patient Time Calculation PT Charges Row Name 07/13/25 1030 Time Calculation Start Time 1030 -MF PT Goal Re-Cert Due Date 07/20/25 -MF Untimed Charges 18934-Wmxf Boot 10 -MF 89041-Eqb Pressure wound to 50 sqcm 25 -MF Total Minutes Untimed Charges Total Minutes 35 -MF Total Minutes 35 -MF User Llanes (r) = Recorded By, (t) = Taken By, (c) = Cosigned By Initials Name Provider Type Duglas Mayes, PT Physical Therapist Therapy Charges for Today Code Description Service Date Service Provider Modifiers Qty [id number] PT NEG PRESS WOUND TO 50SQCM DME1 07/12/2025 Duglas Mayes, PT 1 PT G-Codes Outcome Measure Options: AM-PAC 6 Clicks Daily Activity (OT) AM-PAC 6 Clicks Score (PT): 10 AM-PAC 6 Clicks Score (OT): 14 Duglas Mayes, PT 07/13/2025 * Case Management/Social Work - Monalisa Reilly RN - 07/13/2025 10:17 AM EDT Continued Stay Note [facility] Patient Name: Trung Pool Today's Date: 07/13/2025 Admit Date: 06/25/2025 Plan: To be determined; Patient choice list Discharge Plan Row Name 07/13/25 1006 Plan Plan To be determined; Patient choice list Patient/Family in Agreement with Plan yes Plan Comments I received a phone call from [facility]. At this time [facility] does not have any private rooms in their skilled rehab unit, and therefore they cannot offer Mr Pool a bed. I received a phone call from [facility] not in network with Mr Pool's insurance. I stopped and spoke with Mr Pool at bedside. I have provided Mr Pool with a patient choice list of both facilities that are within 20 [address] of his address and facilities that are within 20 miles of this hospital's address. I have left notes by specific facilities ([facility] -no private beds; [facility] - not in network with his insurance; [facility] - patient has to be a in order to go to this facility). Mr Pool states that he will look over the lists. Case management will continue to follow. Final Discharge Disposition Code 03 - intermediate facility (SNF) Discharge Codes No documentation. Expected Discharge Date and Time Expected Discharge Date Expected Discharge Time Jul 13, 2025 Monalisa Reilly RN * Case Management/Social Work - Monalisa Reilly RN - 07/11/2025 2:16 PM EDT Continued Stay Note [facility] Patient Name: Trung Pool Today's Date: 07/11/2025 Admit Date: 06/25/2025 Plan: Short term rehab Discharge Plan Row Name 07/11/25 1412 Plan Plan Short term rehab Patient/Family in Agreement with Plan yes Plan Comments I stopped by Mr Pool's room and spoke with him at bedside. At this time Mr Pool has decided that he does not want to proceed with amputation. I asked him why and he states that he just can't. Mr Pool did state that he wanted to return home, but was aware that if he is discharged home with IV antibiotics, that he cannot handle them himself. Mr Pool states that his neighbor now has 3 children to take care of, and did not answer the question about involving his sister. Mr Pool is nowagreeable to referrals to both [facility] and [facility] in [place]. I have called and made referrals to [facility] and [facility]. Case management will continue to follow. Final Discharge Disposition Code 03 - intermediate facility (SNF) Discharge Codes No documentation. Expected Discharge Date and Time Expected Discharge Date Expected Discharge Time Jul 13, 2025 Monalisa Reilly RN * Therapy Wound Care Treatment - Duglas Mayes, PT - 07/11/2025 11:29 AM EDT Images from the original note were not included. Acute Care - Wound/Debridement Treatment Note [facility] Patient Name: Trung Pool : 1955 Today's Date: 07/11/2025 Admit Date: 06/25/2025 Visit Dx: ICD-10-CM ICD-9-CM 1. Cellulitis of left lower extremity L03.116 682.6 2. Hematuria, unspecified type R31.9 599.70 3. Urinary tract infection associated with indwelling urethral catheter, initial encounter T83.507Q829.64 N39.0 599.0 4. Diarrhea, unspecified type R19.7 787.91 5. PAD (peripheral artery disease) I73.9 443.9 6. Wound infection T14.8XXA 958.3 L08.9 7. Critical limb ischemia of left lower extremity I70.222 440.22 Patient Active Problem List Diagnosis Acute deep [...] traumatic brain injury Possible meningioma Moderate malnutrition Seizure disorder Adrenal insufficiency Dysphagia Pressure injury of buttock, stage 1 Pressure ulcers of skin of multiple topographic sites Cellulitis of left foot Gangrene History of DVT (deep vein thrombosis) Severe sepsis Hx of migraine headaches Coronary artery disease involving [place] coronary artery of [place] heart without angina pectoris Left leg cellulitis Altered mental status PAD (peripheral artery disease) Wound infection Type 2 diabetes mellitus with diabetic peripheral angiopathy without gangrene, without long-term current use of insulin Mixed hyperlipidemia S/P AKA (above knee amputation), right CHARLIE (acute kidney injury) Type 2 diabetes mellitus, with long-term current use of insulin Arteriovenous fistula, acquired Cellulitis Acute UTI (urinary tract infection) Diarrhea of presumed infectious origin Acute on chronic blood loss anemia BPH without obstruction/lower urinary tract symptoms GERD without esophagitis Bilateral inguinal hernia Gastroenteritis due to norovirus Past Medical History: Diagnosis Date Anemia Cellulitis Diabetes mellitus Frequent falls History of DVT (deep vein thrombosis) Hyperlipidemia Hypertension Migraines Myocardial infarction Peripheral neuropathy Pneumonia Spinal stenosis Wears dentures FULL Wears glasses Past Surgical History: Procedure Laterality Date ABOVE KNEE AMPUTATION Right AMPUTATION DIGIT Left 01/28/2024 Procedure: SECOND AND THIRD TOE AMPUTATION LEFT; Surgeon: Cecil Buenrostro Jr., MD; Location: [facility]; Service: Orthopedics; Laterality: Left; ANTERIOR CERVICAL DISCECTOMY W/ FUSION Bilateral 07/17/2020 Procedure: Cervical discectomy anterior with fusion C3-4; Surgeon: Tyree Tan MD; Location:[facility]; Service: Neurosurgery; Laterality: Bilateral; AORTOGRAM N/A 01/26/2024 Procedure: ABDOMINAL AORTIC ANGIOGRAM, LLE ANGIOGRAM, LEFT ANTERIOR TIBIAL ATHERECTOMY, LEFT ANTERIOR TIBIAL ANGIOPLASTY; Surgeon: Archie Olvera MD; Location: [facility]; Service: Vascular; Laterality: N/A; CONTRAST: 50 ML, FT: 2 MIN 54 SEC, DOSE: 66 MGY. AORTOGRAM Left 07/03/2025 Procedure: ARTERIOGRAM LOWER EXTREMITY; Surgeon: Vaughn Hollingsworth DO; Location: [facility]; Service: Vascular; Laterality: Left; FT-6MINS 24SEC 140 MGY CONTRAST -15ML BACK SURGERY FOR DISC HERNIATION CARDIAC CATHETERIZATION CARDIAC CATHETERIZATION N/A 09/04/2024 Procedure: Peripheral angiography - Left lower extremity angio - Right femoral access; Surgeon: Jared Marcano MD; Location: [facility]; Service: Peripheral Vascular; Laterality: N/A; CORONARY ANGIOPLASTY WITH STENT PLACEMENT stent x 1 INCISION AND DRAINAGE FOOT Left 06/17/2023 Procedure: LEFT FOOT DEBRIDEMENT WOUND VACUUM ASSISTED CLOSURE; Surgeon: Cecil Buenrostro Jr., MD;Location: [facility]; Service: Orthopedics; Laterality: Left; INCISION AND DRAINAGE LEG Left 07/25/2023 Procedure: INCISION AND DRAINAGE HEEL, WOUND VAC; Surgeon: Cecil Buenrostro Jr., MD; Location: [facility]; Service: Orthopedics; Laterality: Left; INCISION AND DRAINAGE LEG Left 07/03/2025 Procedure: DEBRIDEMENT WOUND, PLACEMENT OF WOUND VAC; Surgeon: Vaughn Hollingsworth DO; Location: [facility]; Service: Vascular; Laterality: Left; INTERVENTIONAL RADIOLOGY PROCEDURE N/A 05/02/2019 Procedure: IVC FILTER PLACEMENT; Surgeon: Pedro Zapien MD; Location: [facility]; Service: Interventional Radiology INTERVENTIONAL RADIOLOGY PROCEDURE Left 09/07/2024 Procedure: LEFT peroneal arteriovenous fistula embolization - Right femoral access; Surgeon: Jared Marcano MD; Location: [facility]; Service: Cardiovascular; Laterality: Left; Please coordinate with Gautam Patel ([facility] [phone] who will bring coils LUMBAR DISCECTOMY N/A 05/03/2019 Procedure: THORACIC LAMINECTOMY T11-12; Surgeon: Tyree Tan MD; Location: [facility]; Service: Neurosurgery Wound 01/15/24 1941 Left lower leg Other (comment) (Active) Periwound Care dry periwound area maintained 07/11/25 0820 Wound 01/28/24 Left anterior second toe Incision (Active) Wound Image 07/10/25 1330 Dressing Appearance intact;dry 07/11/25 1115 Dressing Removed Type other (see comments) 07/10/25 1330 Confirmed Empty Wound Bed Yes, visual inspection of wound bed 07/10/25 1330 Base unable to visualize 07/11/25 1115 Periwound pink;redness 07/10/25 1330 Periwound Temperature warm 07/10/25 1330 Periwound Skin Turgor soft 07/10/25 1330 Edges irregular 07/10/25 1330 Drainage Characteristics/Odor serosanguineous 07/10/25 1330 Drainage Amount small 07/10/25 1330 Care, Wound irrigated with;wound cleanser;debrided;negative pressure wound therapy 07/10/25 1330 Dressing Care dressing changed 07/10/25 1330 Periwound Care dry periwound area maintained 07/11/25 0820 Wound Output (mL) 20 07/11/25 1115 Wound Left posterior heel (Active) Wound Image 07/10/25 1330 Dressing Appearance intact;dried drainage 07/10/255 Dressing Removed Type gauze 07/10/252244 Confirmed Empty Wound Bed Yes, visual inspection of wound bed 07/10/25 1330 Base moist;pink 07/10/25 1330 Periwound intact;dry 07/10/25 1330 Periwound Temperature warm 07/10/25 1330 Periwound Skin Turgor soft 07/10/25 1330 Edges irregular 07/10/25 1330 Drainage Characteristics/Odor serosanguineous 07/10/25 1330 Drainage Amount small 07/10/25 1330 Care, Wound irrigated with;wound cleanser 07/10/25 1330 Dressing Care dressing changed 07/10/25 1330 Periwound Care dry periwound area maintained 07/11/25 0820 Wound 06/26/25 0150 Left medial coccyx Pressure Injury (Active) Dressing Appearance dry;intact 07/11/25 0820 Closure None 07/11/25 1005 Base red;white;moist 07/11/25 1005 Periwound moist;pink;redness 07/11/25 1005 Periwound Temperature warm 07/11/25 1005 Periwound Skin Turgor soft 07/11/25 1005 Drainage Amount scant 07/10/25 1800 Care, Wound cleansed with 07/10/255 Dressing Care open to air 07/11/25 0820 Periwound Care barrier ointment applied 07/10/255 Wound 06/26/25 0150 Left posterior greater trochanter Pressure Injury (Active) Dressing Appearance open to air 07/11/25 0820 Closure Open to air 07/11/25 1005 Base red;moist 07/11/25 1005 Periwound pink;moist 07/11/25 1005 Care, Wound cleansed with 07/10/25 2245 Dressing Care open to air 07/11/25 0820 Periwound Care barrier ointment applied 07/10/255 Wound 06/26/25 0150 Right posterior greater trochanter Pressure Injury (Active) Dressing Appearance open to air 07/11/25 0820 Base moist;red 07/11/25 1005 Care, Wound cleansed with 07/10/25 2245 Dressing Care open to air 07/11/25 0820 Periwound Care dry periwound area maintained 07/11/25 0820 Wound 07/03/25 Right anterior groin Surgical Puncture (Active) Dressing Appearance open to air 07/11/25 0820 Wound 07/03/25 1535 Right anterior groin Traumatic Skin Tear (Active) Dressing Appearance open to air 07/11/25 0820 NPWT (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 Wound Therapy) 07/03/25 LEFT FOOT (Active) Therapy Setting continuous therapy 07/11/25 1115 Dressing foam, black 07/11/25 0820 Contact Layer silicone 07/11/25 0820 Pressure Setting 125 mmHg 07/11/25 1115 Sponges Inserted 1 07/10/25 1330 Sponges Removed 1 07/10/25 1330 Finger sweep complete Yes 07/10/25 1330 Lymphedema Row Name 07/10/25 1330 Lymphedema Edema Assessment Ptting Edema Category By severity - Pitting Edema Moderate - Skin Changes/Observations Location/Assessment Lower Extremity - Lower Extremity Conditions left:;scaly;crust;inflamed - Lower Extremity Color/Pigment left:;erythema - Compression/Skin Care Compression/Skin Care skin care;wrapping location;bandaging - Skin Care washed/dried;lotion applied - Wrapping Location lower extremity - Wrapping Location LE left:;foot to knee - Wrapping Comments unna boot applied in clamshell with kerlix and spandage to secur. - User Llanes (r) = Recorded By, (t) = Taken By, (c) = Cosigned By Initials Name Provider Type Duglas Pathak, PT Physical Therapist WOUND DEBRIDEMENT Total area of Debridement: ~10cm2 Debridement Site 1 Location- Site 1: LLE Selective Debridement- Site 1: Wound Surface <20cmsq Instruments- Site 1: tweezers Excised Tissue Description- Site 1: moderate, other (comment) (crusted nonviable skin / scabs with intact skin underneath) Bleeding- Site 1: none PT Assessment (Last 12 Hours) PT Evaluation and Treatment Row Name 07/11/25 1115 Physical Therapy Time and Intention Subjective Information complains of;weakness;fatigue;pain -MF Document Type therapy note (daily note);wound care - Mode of Treatment individual therapy;physical therapy - Row Name 07/11/25 1115 Pain Pain Location extremity - Pain Side/Orientation left -MF Row Name 07/11/25 1115 Pain Scale: FACES Pre/Post-Treatment Pain: FACES Scale, Pretreatment 4-->hurts little more -MF Posttreatment Pain Rating 4-->hurts little more -MF Row Name Wound 06/26/25 0150 Left medial coccyx Pressure Injury Wound - Properties Group Placement Date: 06/26/25 Placement Time: 0150 -EW Present on Original Admission: Y -EW Side: Left -EW Orientation: medial -EW Location: coccyx -EW Primary Wound Type: Pressure Inj -EW Retired Wound - Properties Group Placement Date: 06/26/25 Placement Time: 0150 -EW Present on Original Admission: Y -EW Side: Left -EW Orientation: medial -EW Location: coccyx -EW Retired Wound - Properties Group Placement Date: 06/26/25 Placement Time: 0150 -EW Present on Original Admission: Y -EW Side: Left -EW Orientation: medial -EW Location: coccyx -EW Retired Wound - Properties Group Date first assessed: 06/26/25 Time first assessed: 0150 -EW Present on Original Admission: Y -EW Side: Left -EW Location: coccyx -EW Row Name Wound 06/26/25 0150 Left posterior greater trochanter Pressure Injury Wound - Properties Group Placement Date: 06/26/25 Placement Time: 0150 -EW Present on Original Admission: Y -EW Side: Left -EW Orientation: posterior -EW Location: greater trochanter -EW Primary Wound Type: Pressure Inj -EW Retired Wound - Properties Group Placement Date: 06/26/25 Placement Time: 0150 -EW Present on Original Admission: Y -EW Side: Left -EW Orientation: posterior -EW Location: greater trochanter -EW Retired Wound - Properties Group Placement Date: 06/26/25 Placement Time: 0150 -EW Present on Original Admission: Y -EW Side: Left -EW Orientation: posterior -EW Location: greater trochanter -EW Retired Wound - Properties Group Date first assessed: 06/26/25 Time first assessed: 0150 -EW Present on Original Admission: Y -EW Side: Left -EW Location: greater trochanter -EW Row Name Wound 06/26/25 0150 Right posterior greater trochanter Pressure Injury Wound - Properties Group Placement Date: 06/26/25 Placement Time: 0150 - Present on Original Admission: Y -EW Side: Right -EW Orientation: posterior -EW Location: greater trochanter -EW PrimaryWound Type: Pressure Inj -EW Retired Wound - Properties Group Placement Date: 06/26/25 Placement Time: 0150 -EW Present on Original Admission: Y -EW Side: Right -EW Orientation: posterior -EW Location: greater trochanter -EW Retired Wound - Properties Group Placement Date: 06/26/25 Placement Time: 0150 -EW Present on Original Admission: Y -EW Side: Right -EW Orientation: posterior -EW Location: greater trochanter -EW Retired Wound - Properties Group Date first assessed: 06/26/25 Time first assessed: 149 - Present on Original Admission: Y -EW Side: Right -EW Location: greater trochanter -EW Row Name Wound Left posterior heel Wound - Properties Group Present on Original Admission: Y -MR Side: Left -MR Orientation: posterior-MR Location: heel -MR Primary Wound Type: Pressure inj -MR Retired Wound - Properties Group Present on Original Admission: Y -MR Side: Left -MR Orientation: posterior -MR Location: heel -MR Primary Wound Type: Pressure inj -MR Retired Wound - Properties Group Present on Original Admission: Y -MR Side: Left -MR Orientation: posterior -MR Location: heel -MR Primary Wound Type: Pressure inj -MR Retired Wound - Properties Group Present on Original Admission: Y -MR Side: Left -MR Location: heel-MR Primary Wound Type: Pressure inj -MR Row Name 07/11/25 1115 Wound 01/28/24 Left anterior second toe Incision Wound - Properties Group Placement Date: 01/28/24 -MJ Present on Original Admission: N -MJ Side: Left -MJ Orientation: anterior -MJ Location: second toe - MJ Primary Wound Type: Incision -MJ Dressing Appearance intact;dry -MF Base unable to visualize -MF Wound Output (mL) 20 -MF Retired Wound - Properties Group Placement Date: 01/28/24 -MJ Present on Original Admission: N -MJ Side: Left -MJ Orientation: anterior -MJ Location: second toe -MJ Primary Wound Type: Incision -MJ Retired Wound - Properties Group Placement Date: 01/28/24 -MJ Present on Original Admission: N -MJ Side: Left -MJ Orientation: anterior -MJ Location: second toe -MJ Primary Wound Type: Incision -MJ Retired Wound - Properties Group Date first assessed: 01/28/24 -MJ Present on Original Admission: N-MJ Side: Left -MJ Location: second toe -MJ Primary Wound Type: Incision -MJ Row Name Wound 01/15/241940 Left lower leg Other (comment) Wound - Properties Group Placement Date: 01/15/24 -MM Placement Time: 1940 -MM Present on Original Admission: Y -MM Side: Left -MM Orientation: lower -MM Location: leg -MM Primary Wound Type: Other -MM, cellulitis Retired Wound - Properties Group Placement Date: 01/15/24 -MM Placement Time: 1940 -MM Present on Original Admission: Y -MM Side: Left -MM Orientation: lower -MM Location: leg -MM Primary Wound Type:Other -MM, cellulitis Retired Wound - Properties Group Placement Date: 01/15/24 -MM Placement Time: 1940 -MM Present on Original Admission: Y -MM Side: Left -MM Orientation: lower -MM Location: leg -MM Primary Wound Type:Other -MM, cellulitis Retired Wound - Properties Group Date first assessed: 01/15/24 -MM Time first assessed: 1940 -MM Present on Original Admission: Y -MM Side: Left -MM Location: leg -MM Primary Wound Type: Other -MM, cellulitis Row Name Wound 07/03/25 Right anterior groin Surgical Puncture Wound - Properties Group Placement Date: 07/03/25 -RS Present on Original Admission: N -RS Side: Right -RS Orientation: anterior -RS Location: groin -RS Primary Wound Type: Surgical -RS Secondary Wound Type - Surgical: Puncture -RS Retired Wound - Properties Group Placement Date: 07/03/25 -RS Present on Original Admission: N -RS Side: Right -RS Orientation: anterior -RS Location: groin -RS Retired Wound - Properties Group Placement Date: 07/03/25 -RS Present on Original Admission: N -RS Side: Right -RS Orientation: anterior -RS Location: groin -RS Retired Wound - Properties Group Date first assessed: 07/03/25 -RS Present on Original Admission: N-RS Side: Right -RS Location: groin -RS Row Name Wound 07/03/25 1535 Right anterior groin Traumatic Skin Tear Wound - Properties Group Placement Date: 07/03/25 -RS Placement Time: 153 -RS Side: Right -RS Orientation: anterior -RS Location: groin -RS Primary Wound Type: Traumatic -RS Secondary Wound Type - Traumatic: Skin Tear -RS Retired Wound - Properties Group Placement Date: 07/03/25 -RS Placement Time: 1535 -RS Side: Right -RS Orientation: anterior -RS Location: groin -RS Retired Wound - Properties Group Placement Date: 07/03/25 -RS Placement Time: 1535 -RS Side: Right -RS Orientation: anterior -RS Location: groin -RS Retired Wound - Properties Group Date first assessed: 07/03/25 -RS Time first assessed: 1534 -RS Side: Right -RS Location: groin -RS Row Name 07/11/25 111 NPWT (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 Wound Therapy) 07/03/25 LEFT FOOT NPWT (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 Wound Therapy) - Properties Group Placement Date: 07/03/25 -RS Location: LEFT FOOT -RS Additional Comments: PER MD CLARKE REYNOSO Therapy Setting continuous therapy - Pressure Setting 125 mmHg - 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) - Properties Group Placement Date: 07/03/25 -RS Location: LEFT FOOT -RS Additional Comments: PER MD CLARKE REYNOSO 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) - Properties Group Placement Date: 07/03/25 -RS Location: LEFT FOOT -RS Additional Comments: PER MD CLARKE REYNOSO 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) - Properties Group Placement Date: 07/03/25 -RS Location: LEFT FOOT -RS Additional Comments: PER MD CLARKE REYNOSO Row Name 07/11/25 1115 Coping Observed Emotional State calm;cooperative - Verbalized Emotional State acceptance - Trust Relationship/Rapport care explained - Row Name 07/11/25 1115 Plan of Care Review Plan of Care Reviewed With patient - Outcome Evaluation wound vac dressing intact with no issues noted. - Row Name 07/11/25 1115 Positioning and Restraints Pre-Treatment Position in bed - Post Treatment Position bed - In Bed supine;call light within reach - User Llanes (r) = Recorded By, (t) = Taken By, (c) = Cosigned By Initials Name Provider Type Duglas Pathak, PT Physical Therapist Tiffanie Olverahawa Tierney, RN Registered Nurse Kristan Giordano, RN Registered Nurse Henrietta Blakely, RN Registered Nurse Mary Mayes, RN Registered Nurse Alessandra Whitaker, RN Registered Nurse Physical Therapy Education Title: PT OT HOMICIDE INVESTIGATOR Therapies (In Progress) Topic: Physical Therapy (Done) Point: Mobility training (Done) Learning Progress Summary Patient Acceptance, E, VU by IG at 07/10/2025 1532 Comment: PT POC Acceptance, E, VU by IG at 07/05/2025 1624 Comment: PT POC Acceptance, E, VU,NR by ML at 06/29/2025 0907 Acceptance, E, VU,NR by NS at 06/26/2025 1618 Point: Home exercise program (Done) Learning Progress Summary Patient Acceptance, E, VU by IG at 07/10/2025 1532 Comment: PT POC Acceptance, E, VU by IG at 07/05/2025 1624 Comment: PT POC Acceptance, E, VU,NR by NS at 06/26/2025 1618 Point: Body mechanics (Done) Learning Progress Summary Patient Acceptance, E, VU by IG at 07/10/2025 1532 Comment: PT POC Acceptance, E, VU by IG at 07/05/2025 1624 Comment: PT POC Acceptance, E, VU,NR by NS at 06/26/2025 1618 Point: Precautions (Done) Learning Progress Summary Patient Acceptance, E, VU by IG at 07/10/2025 1532 Comment: PT POC Acceptance, E, VU by IG at 07/05/2025 1624 Comment: PT POC Acceptance, E, VU,NR by ML at 06/29/2025 0907 Acceptance, E, VU,NR by NS at 06/26/2025 1618 User Llanes Initials Effective Dates Name Provider Type Discipline NS 02/26/21 - Mirela Hsu, PT Physical Therapist PT ML 01/02/21 - Leonie Thomas Physical Therapist PT IG 04/19/25 - Hayden Matias PT Physical Therapist PT Recommendation and Plan Recommended discharge disposition is based on the functional assessment performed by PT/OT/Speech therapy (as applicable) and may not reflect the medical necessity determined by your provider or services covered by an individual patient's insurance plan or patient resource. Anticipated Discharge Disposition (PT): inpatient rehabilitation facility Planned Therapy Interventions (PT): balance training, bed mobility training, patient/family education, postural re-education, strengthening, transfer training Therapy Frequency (PT): daily Plan of Care Reviewed With: patient Outcome Evaluation: wound vac dressing intact with no issues noted. Plan of Care Reviewed With: patient Time Calculation PT Charges Row Name 07/11/25 1115 Time Calculation Start Time 1115 -MF PT Goal Re-Cert Due Date 07/20/25 -MF Untimed Charges 46732-Oze Pressure wound to 50 sqcm 10 -MF Total Minutes Untimed Charges Total Minutes 10 -MF Total Minutes 10 -MF User Llanes (r) = Recorded By, (t) = Taken By, (c) = Cosigned By Initials Name Provider Type Duglas Pathak, PT Physical Therapist Therapy Charges for Today Code Description Service Date Service Provider Modifiers Qty 14870010129 HC PT STAPPING UNNA BOOT 07/10/2025 Duglas Mayes, PT GP, LT 1 57844340335 HC PT NEG PRESS WOUND TO 50SQCM DME2 07/10/2025 Duglas Mayes, PT GP 1 [id number] HC SILVANA DEBRIDE OPEN WOUND UP TO 20CM 07/10/2025 Duglas Mayes, PT GP 1 PT G-Codes Outcome Measure Options: AM-PAC 6 Clicks Daily Activity (OT) AM-PAC 6 Clicks Score (PT): 10 AM-PAC 6 Clicks Score (OT): 14 Duglas Mayes PT 07/11/2025 * Therapy Wound Care Treatment - Duglas Mayes, PT - 07/10/2025 4:12 PM EDT Images from the original note were not included. Acute Care - Wound/Debridement Treatment Note [facility] Patient Name: Trung Pool : 1955 Today's Date: 07/10/2025 Admit Date: 06/25/2025 Visit Dx: ICD-10-CM ICD-9-CM 1. Cellulitis of left lower extremity L03.116 682.6 2. Hematuria, unspecified type R31.9 599.70 3. Urinary tract infection associated with indwelling urethral catheter, initial encounter T83.685B062.64 N39.0 599.0 4. Diarrhea, unspecified type R19.7 787.91 5. PAD (peripheral artery disease) I73.9 443.9 6. Wound infection T14.8XXA 958.3 L08.9 7. Critical limb ischemia of left lower extremity I70.222 440.22 Patient Active Problem List Diagnosis Acute deep [...] traumatic brain injury Possible meningioma Moderate malnutrition Seizure disorder Adrenal insufficiency Dysphagia Pressure injury of buttock, stage 1 Pressure ulcers of skin of multiple topographic sites Cellulitis of left foot Gangrene History of DVT (deep vein thrombosis) Severe sepsis Hx of migraine headaches Coronary artery disease involving [place] coronary artery of [place] heart without angina pectoris Left leg cellulitis Altered mental status PAD (peripheral artery disease) Wound infection Type 2 diabetes mellitus with diabetic peripheral angiopathy without gangrene, without long-term current use of insulin Mixed hyperlipidemia S/P AKA (above knee amputation), right CHARLIE (acute kidney injury) Type 2 diabetes mellitus, with long-term current use of insulin Arteriovenous fistula, acquired Cellulitis Acute UTI (urinary tract infection) Diarrhea of presumed infectious origin Acute on chronic blood loss anemia BPH without obstruction/lower urinary tract symptoms GERD without esophagitis Bilateral inguinal hernia Gastroenteritis due to norovirus Past Medical History: Diagnosis Date Anemia Cellulitis Diabetes mellitus Frequent falls History of DVT (deep vein thrombosis) Hyperlipidemia Hypertension Migraines Myocardial infarction Peripheral neuropathy Pneumonia Spinal stenosis Wears dentures FULL Wears glasses Past Surgical History: Procedure Laterality Date ABOVE KNEE AMPUTATION Right AMPUTATION DIGIT Left 01/28/2024 Procedure: SECOND AND THIRD TOE AMPUTATION LEFT; Surgeon: Cecil Buenrostro Jr., MD; Location: [facility]; Service: Orthopedics; Laterality: Left; ANTERIOR CERVICAL DISCECTOMY W/ FUSION Bilateral 07/17/2020 Procedure: Cervical discectomy anterior with fusion C3-4; Surgeon: Tyree Tan MD; Location: [facility]; Service: Neurosurgery; Laterality: Bilateral; AORTOGRAM N/A 01/26/2024 Procedure: ABDOMINAL AORTIC ANGIOGRAM, LLE ANGIOGRAM, LEFT ANTERIOR TIBIAL ATHERECTOMY, LEFT ANTERIOR TIBIAL ANGIOPLASTY; Surgeon: Archie Olvera MD; Location: [facility]; Service: Vascular; Laterality: N/A; CONTRAST: 50 ML, FT: 2 MIN 54 SEC, DOSE: 66 MGY. AORTOGRAM Left 07/03/2025 Procedure: ARTERIOGRAM LOWER EXTREMITY; Surgeon: Vaughn Hollingsworth DO; Location: [facility]; Service: Vascular; Laterality: Left; FT-6MINS 24SEC 140 MGY CONTRAST -15ML BACK SURGERY FOR DISC HERNIATION CARDIAC CATHETERIZATION [...] Location: [facility]; Service: Orthopedics; Laterality: Left; INCISION AND DRAINAGE LEG Left 07/03/2025 Procedure: DEBRIDEMENT WOUND, PLACEMENT OF WOUND VAC; Surgeon: Vaughn Hollingsworth DO; Location: [facility]; Service: Vascular; Laterality: Left; INTERVENTIONAL RADIOLOGY PROCEDURE N/A 05/02/2019 Procedure: IVC FILTER PLACEMENT; Surgeon: Pedro Zapien MD; Location: [facility]; Service: Interventional Radiology INTERVENTIONAL RADIOLOGY PROCEDURE Left 09/07/2024 Procedure: LEFT peroneal arteriovenous fistula embolization - Right femoral access; Surgeon: Jared Marcano MD; Location: [facility]; Service: Cardiovascular; Laterality: Left; Please coordinate with Gautam Patel ([facility] [phone] who will bring coils LUMBAR DISCECTOMY N/A 05/03/2019 Procedure: THORACIC LAMINECTOMY T11-12; Surgeon: Tyree Tan MD; Location: [facility]; Service: Neurosurgery Wound 01/28/24 Left anterior second toe Incision (Active) Wound Image 07/10/25 1330 Dressing Appearance dry;intact 07/10/25 1330 Dressing Removed Type other (see comments) 07/10/25 133 Confirmed Empty Wound Bed Yes, visual inspection of wound bed 07/10/25 1330 Base moist;pink;red 07/10/25 1330 Periwound pink;redness 07/10/25 1330 Periwound Temperature warm 07/10/25 1330 Periwound Skin Turgor soft 07/10/25 1330 Edges irregular 07/10/25 1330 Drainage Characteristics/Odor serosanguineous 07/10/25 1330 Drainage Amount small 07/10/25 1330 Care, Wound irrigated with;wound cleanser;debrided;negative pressure wound therapy 07/10/25 1330 Dressing Care dressing changed 07/10/25 1330 Periwound Care dry periwound area maintained;cleansed with pH balanced cleanser;barrier film applied 07/10/25 1330 Wound Left posterior heel (Active) Wound Image 07/10/25 1330 Dressing Appearance intact;moist drainage 07/10/25 1330 Dressing Removed Type gauze 07/10/25 1330 Confirmed Empty Wound Bed Yes, visual inspection of wound bed 07/10/25 1330 Base moist;pink 07/10/25 1330 Periwound intact;dry 07/10/25 1330 Periwound Temperature warm 07/10/25 1330 Periwound Skin Turgor soft 07/10/25 1330 Edges irregular 07/10/25 1330 Drainage Characteristics/Odor serosanguineous 07/10/25 1330 Drainage Amount small 07/10/25 1330 Care, Wound irrigated with;wound cleanser 07/10/25 1330 Dressing Care dressing changed 07/10/25 1330 Periwound Care cleansed with pH balanced cleanser;dry periwound area maintained 07/10/25 1330 Wound 06/26/25 0150 Left medial coccyx Pressure Injury (Active) Dressing Appearance open to air 07/09/25 1850 Closure None 07/10/25 1400 Base red;white;moist 07/10/25 1400 Drainage Amount scant 07/10/25 1400 Care, Wound cleansed with;soap and water 07/09/25 1850 Dressing Care open to air 07/09/25 1850 Periwound Care barrier ointment applied;dry periwound area maintained 07/09/25 1850 Wound 06/26/25 0150 Left posterior greater trochanter Pressure Injury (Active) Dressing Appearance open to air 07/09/25 1850 Base red;moist 07/10/25 1400 Care, Wound cleansed with;soap and water 07/09/25 185 Dressing Care open to air 07/09/25 1850 Periwound Care barrier ointment applied;dry periwound area maintained 07/09/25 1850 Wound 06/26/25 0150 Right posterior greater trochanter Pressure Injury (Active) Dressing Appearance open to air 07/09/25 1850 Base moist;red 07/10/25 1400 Care, Wound cleansed with;soap and water 07/09/25 1850 Dressing Care open to air 07/09/25 1850 Periwound Care barrier ointment applied;dry periwound area maintained 07/09/25 1850 Wound 07/03/25 Right anterior groin Surgical Puncture (Active) Dressing Appearance open to air 07/09/25 1850 Wound 07/03/25 1535 Right anterior groin Traumatic Skin Tear (Active) Dressing Appearance open to air 07/09/25 1850 NPWT (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 Wound Therapy) 07/03/25 LEFT FOOT (Active) Therapy Setting continuous therapy 07/10/25 1330 Dressing foam, black 07/10/25 1330 Pressure Setting 125 mmHg 07/10/25 1330 Sponges Inserted 1 07/10/25 1330 Sponges Removed 1 07/10/25 1330 Finger sweep complete Yes 07/10/25 1330 Lymphedema Row Name 07/10/25 1330 Lymphedema Edema Assessment Ptting Edema Category By severity -MF Pitting Edema Moderate -MF Skin Changes/Observations Location/Assessment Lower Extremity - Lower Extremity Conditions left:;scaly;crust;inflamed - Lower Extremity Color/Pigment left:;erythema -MF Compression/Skin Care Compression/Skin Care skin care;wrapping location;bandaging -MF Skin Care washed/dried;lotion applied -MF Wrapping Location lower extremity -MF Wrapping Location LE left:;foot to knee - Wrapping Comments unna boot applied in clamshell with kerlix and spandage to secur. - User Llanes (r) = Recorded By, (t) = Taken By, (c) = Cosigned By Initials Name Provider Type MF Duglas Mayes, PT Physical Therapist WOUND DEBRIDEMENT Total area of Debridement: ~10cm2 Debridement Site 1 Location- Site 1: LLE Selective Debridement- Site 1: Wound Surface <20cmsq Instruments- Site 1: tweezers Excised Tissue Description- Site 1: moderate, other (comment) (crusted nonviable skin / scabs with intact skin underneath) Bleeding- Site 1: none PT Assessment (Last 12 Hours) PT Evaluation and Treatment Row Name 07/10/25 6340 Physical Therapy Time and Intention Subjective Information complains of;weakness;fatigue;pain - Document Type therapy note (daily note);wound care - Mode of Treatment individual therapy;physical therapy - Row Name 07/10/25 4596 Pain Pain Location extremity - Pain Side/Orientation left;lower - Row Name 07/10/251329 Pain Scale: FACES Pre/Post-Treatment Pain: FACES Scale, Pretreatment 6-->hurts even more - Posttreatment Pain Rating 6-->hurts even more - Row Name Wound 06/26/25 0150 Left medial coccyx Pressure Injury Wound - Properties Group Placement Date: 06/26/25 Placement Time: 0150 -EW Present on Original Admission: Y -EW Side: Left -EW Orientation: medial -EW Location: coccyx -EW Primary Wound Type: Pressure Inj -EW Retired Wound - Properties Group Placement Date: 06/26/25 Placement Time: 0150 -EW Present on Original Admission: Y -EW Side: Left -EW Orientation: medial -EW Location: coccyx -EW Retired Wound - Properties Group Placement Date: 06/26/25 Placement Time: 0150 -EW Present on Original Admission: Y -EW Side: Left -EW Orientation: medial -EW Location: coccyx -EW Retired Wound - Properties Group Date first assessed: 06/26/25 - Time first assessed: 0150 -EW Present on Original Admission: Y -EW Side: Left -EW Location: coccyx -EW Row Name Wound 06/26/25 0150 Left posterior greater trochanter Pressure Injury Wound - Properties Group Placement Date: 06/26/25 Placement Time: 0150 -EW Present on Original Admission: Y -EW Side: Left -EW Orientation: posterior -EW Location: greater trochanter -EW Primary Wound Type: Pressure Inj -EW Retired Wound - Properties Group Placement Date: 06/26/25 Placement Time: 0150 -EW Present on Original Admission: Y -EW Side: Left -EW Orientation: posterior -EW Location: greater trochanter -EW Retired Wound - Properties Group Placement Date: 06/26/25 Placement Time: 0150 -EW Present on Original Admission: Y -EW Side: Left -EW Orientation: posterior -EW Location: greater trochanter -EW Retired Wound - Properties Group Date first assessed: 06/26/25 Time first assessed: 0150 - Present on Original Admission: Y -EW Side: Left -EW Location: greater trochanter -EW Row Name Wound 06/26/25 0150 Right posterior greater trochanter Pressure Injury Wound - Properties Group Placement Date: 06/26/25 Placement Time: 0150 - Present on Original Admission: Y -EW Side: Right -EW Orientation: posterior -EW Location: greater trochanter -EW PrimaryWound Type: Pressure Inj -EW Retired Wound - Properties Group Placement Date: 06/26/25 Placement Time: 0150 -EW Present on Original Admission: Y -EW Side: Right -EW Orientation: posterior -EW Location: greater trochanter -EW Retired Wound - Properties Group Placement Date: 06/26/25 Placement Time: 0150 -EW Present on Original Admission: Y -EW Side: Right -EW Orientation: posterior -EW Location: greater trochanter -EW Retired Wound - Properties Group Date first assessed: 06/26/25 Time first assessed: 0150 -EW Present on Original Admission: Y -EW Side: Right -EW Location: greater trochanter -EW Row Name 07/10/25 1330 Wound Left posterior heel Wound - Properties Group Present on Original Admission: Y -MR Side: Left -MR Orientation: posterior-MR Location: heel -MR Primary Wound Type: Pressure inj -MR Wound Image Images linked: 1 -MF Dressing Appearance intact;moist drainage -MF Dressing Removed Type gauze -MF Confirmed Empty Wound Bed Yes, visual inspection of wound bed -MF Base moist;pink -MF Periwound intact;dry -MF Periwound Temperature warm -MF Periwound Skin Turgor soft -MF Edges irregular -MF Drainage Characteristics/Odor serosanguineous -MF Drainage Amount small -MF Care, Wound irrigated with;wound cleanser -MF Dressing Care dressing changed -MF Periwound Care cleansed with pH balanced cleanser;dry periwound area maintained -MF Retired Wound - Properties Group Present on Original Admission: Y -MR Side: Left -MR Orientation: posterior -MR Location: heel -MR Primary Wound Type: Pressure inj -MR Retired Wound - Properties Group Present on Original Admission: Y -MR Side: Left -MR Orientation: posterior -MR Location: heel -MR Primary Wound Type: Pressure inj -MR Retired Wound - Properties Group Present on Original Admission: Y -MR Side: Left -MR Location: heel-MR Primary Wound Type: Pressure inj -MR Row Name 07/10/25 1330 Wound 01/28/24 Left anterior second toe Incision Wound - Properties Group Placement Date: 01/28/24 -MJ Present on Original Admission: N -MJ Side: Left -MJ Orientation: anterior -MJ Location: second toe - MJ Primary Wound Type: Incision -MJ Wound Image Images linked: 1 -MF Dressing Appearance dry;intact -MF Dressing Removed Type other (see comments) vac -MF Confirmed Empty Wound Bed Yes, visual inspection of wound bed -MF Base moist;pink;red -MF Periwound pink;redness -MF Periwound Temperature warm -MF Periwound Skin Turgor soft -MF Edges irregular -MF Drainage Characteristics/Odor serosanguineous -MF Drainage Amount small -MF Care, Wound irrigated with;wound cleanser;debrided;negative pressure wound therapy -MF Dressing Care dressing changed -MF Periwound Care dry periwound area maintained;cleansed with pH balanced cleanser;barrier film applied -MF Retired Wound - Properties Group Placement Date: 01/28/24 -MJ Present on Original Admission: N -MJ Side: Left -MJ Orientation: anterior -MJ Location: second toe -MJ Primary Wound Type: Incision -MJ Retired Wound - Properties Group Placement Date: 01/28/24 -MJ Present on Original Admission: N -MJ Side: Left -MJ Orientation: anterior -MJ Location: second toe -MJ Primary Wound Type: Incision -MJ Retired Wound - Properties Group Date first assessed: 01/28/24 -MJ Present on Original Admission: N-MJ Side: Left -MJ Location: second toe -MJ Primary Wound Type: Incision -MJ Row Name Wound 01/15/241940 Left lower leg Other (comment) Wound - Properties Group Placement Date: 01/15/24 -MM Placement Time: 1940 -MM Present on Original Admission: Y -MM Side: Left -MM Orientation: lower -MM Location: leg -MM Primary Wound Type: Other -MM, cellulitis Retired Wound - Properties Group Placement Date: 01/15/24 -MM Placement Time: 1940 -MM Present on Original Admission: Y -MM Side: Left -MM Orientation: lower -MM Location: leg -MM Primary Wound Type:Other -MM, cellulitis Retired Wound - Properties Group Placement Date: 01/15/24 -MM Placement Time: 1940 -MM Present on Original Admission: Y -MM Side: Left -MM Orientation: lower -MM Location: leg -MM Primary Wound Type:Other -MM, cellulitis Retired Wound - Properties Group Date first assessed: 01/15/24 -MM Time first assessed: 1940 -MM Present on Original Admission: Y -MM Side: Left -MM Location: leg -MM Primary Wound Type: Other -MM, cellulitis Row Name Wound 07/03/25 Right anterior groin Surgical Puncture Wound - Properties Group Placement Date: 07/03/25 -RS Present on Original Admission: N -RS Side: Right -RS Orientation: anterior -RS Location: groin -RS Primary Wound Type: Surgical -RS Secondary Wound Type - Surgical: Puncture -RS Retired Wound - Properties Group Placement Date: 07/03/25 -RS Present on Original Admission: N -RS Side: Right -RS Orientation: anterior -RS Location: groin -RS Retired Wound - Properties Group Placement Date: 07/03/25 -RS Present on Original Admission: N -RS Side: Right -RS Orientation: anterior -RS Location: groin -RS Retired Wound - Properties Group Date first assessed: 07/03/25 -RS Present on Original Admission: N-RS Side: Right -RS Location: groin -RS Row Name Wound 07/03/25 1535 Right anterior groin Traumatic Skin Tear Wound - Properties Group Placement Date: 07/03/25 -RS Placement Time: 1535 -RS Side: Right -RS Orientation: anterior -RS Location: groin -RS Primary Wound Type: Traumatic -RS Secondary Wound Type - Traumatic: Skin Tear -RS Retired Wound - Properties Group Placement Date: 07/03/25 -RS Placement Time: 1534RS Side: Right -RS Orientation: anterior -RS Location: groin -RS Retired Wound - Properties Group Placement Date: 07/03/25 -RS Placement Time: 1535 -RS Side: Right -RS Orientation: anterior -RS Location: groin -RS Retired Wound - Properties Group Date first assessed: 07/03/25 -RS Time first assessed: 1534 -RS Side: Right -RS Location: groin -RS Row Name 07/10/251329 NPWT (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 Wound Therapy) 07/03/25 LEFT FOOT NPWT (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 Wound Therapy) - Properties Group Placement Date: 07/03/25 -RS Location: LEFT FOOT -RS Additional Comments: PER MD CLARKE REYNOSO Therapy Setting continuous therapy -MF Dressing foam, black -MF Pressure Setting 125 mmHg -MF Sponges Inserted 1 -MF Sponges Removed 1 -MF Finger sweep complete Yes -MF 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) - Properties Group Placement Date: 07/03/25 -RS Location: LEFT FOOT -RS Additional Comments: PER MD CLARKE REYNOSO 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) - Properties Group Placement Date: 07/03/25 -RS Location: LEFT FOOT -RS Additional Comments: PER MD CLARKE REYNOSO 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) - Properties Group Placement Date: 07/03/25 -RS Location: LEFT FOOT -RS Additional Comments: PER MD CLARKE REYNOSO Row Name 07/10/25 617 Coping Observed Emotional State calm;cooperative - Verbalized Emotional State acceptance - Trust Relationship/Rapport care explained - Row Name 07/10/251329 Plan of Care Review Plan of Care Reviewed With patient - Outcome Evaluation wound vac dressing changed and PT applied unna boot in clamshell to LE with no compression to help decrease inflammation and improve skin integrity. - Row Name 07/10/25 474 Positioning and Restraints Pre-Treatment Position in bed - Post Treatment Position bed -MF In Bed supine;call light within reach - User Llanes (r) = Recorded By, (t) = Taken By, (c) = Cosigned By Initials Name Provider Type MF Duglas Mayes, PT Physical Therapist MR Charles Margarita Tierney, RN Registered Nurse Kristan Giordano RN Registered Nurse Henrietta Blakely, RN Registered Nurse Mary Mayes, RN Registered Nurse Alessandra Whitaker, RN Registered Nurse Physical Therapy Education Title: PT OT HOMICIDE INVESTIGATOR Therapies (In Progress) Topic: Physical Therapy (Done) Point: Mobility training (Done) Learning Progress Summary Patient Acceptance, E, VU by IG at 07/10/2025 1532 Comment: PT POC Acceptance, E, VU by IG at 07/05/2025 1624 Comment: PT POC Acceptance, E, VU,NR by ML at 06/29/2025 0907 Acceptance, E, VU,NR by NS at 06/26/2025 1618 Point: Home exercise program (Done) Learning Progress Summary Patient Acceptance, E, VU by IG at 07/10/2025 1532 Comment: PT POC Acceptance, E, VU by IG at 07/05/2025 1624 Comment: PT POC Acceptance, E, VU,NR by NS at 06/26/2025 1618 Point: Body mechanics (Done) Learning Progress Summary Patient Acceptance, E, VU by IG at 07/10/2025 1532 Comment: PT POC Acceptance, E, VU by IG at 07/05/2025 1624 Comment: PT POC Acceptance, E, VU,NR by NS at 06/26/2025 1618 Point: Precautions (Done) Learning Progress Summary Patient Acceptance, E, VU by IG at 07/10/2025 1532 Comment: PT POC Acceptance, E, VU by IG at 07/05/2025 1624 Comment: PT POC Acceptance, E, VU,NR by ML at 06/29/2025 0907 Acceptance, E, VU,NR by NS at 06/26/2025 1618 User Llanes Initials Effective Dates Name Provider Type Discipline NS 02/26/21 - Mirela Hsu, PT Physical Therapist PT ML 01/02/21 - Leonie Thomas Physical Therapist PT IG 04/19/25 - Hayden Matias, PT Physical Therapist PT Recommendation and Plan Recommended discharge disposition is based on the functional assessment performed by PT/OT/Speech therapy (as applicable) and may not reflect the medical necessity determined by your provider or services covered by an individual patient's insurance plan or patient resource. Anticipated Discharge Disposition (PT): inpatient rehabilitation facility Planned Therapy Interventions (PT): balance training, bed mobility training, patient/family education, postural re-education, strengthening, transfer training Therapy Frequency (PT): daily Plan of Care Reviewed With: patient Outcome Evaluation: wound vac dressing changed and PT applied unna boot in clamshell to LE with no compression to help decrease inflammation and improve skin integrity. Plan of Care Reviewed With: patient Time Calculation PT Charges Row Name 07/10/25 1532 07/10/25 1330 Time Calculation Start Time 1120 -IG 1330 -MF PT Received On 07/10/25 -IG -- PT Goal Re-Cert Due Date 07/20/25 -IG 07/20/25 -MF Timed Charges 24521 - PT Therapeutic Activity Minutes 70 -IG -- Untimed Charges Wound Care -- 28832 Selective debridement;83717 Unna boot -MF 86563-Mehr Boot -- 10 -MF 27929-Vzfbqvkdn debridement -- 15 -MF 34335-Lmg Pressure wound to 50 sqcm -- 25 -MF Total Minutes Timed Charges Total Minutes 70 -IG -- Untimed Charges Total Minutes -- 50 -MF Total Minutes 70 -IG 50 -MF User Llanes (r) = Recorded By, (t) = Taken By, (c) = Cosigned By Initials Name Provider Type Duglas Mayes, PT Physical Therapist Hayden Matias PT Physical Therapist Therapy Charges for Today Code Description Service Date Service Provider Modifiers Qty [id number] HC PT NEG PRESS WOUND TO 50SQCM DME1 07/09/2025 Duglas Mayes, PT 1 PT G-Codes Outcome Measure Options: AM-PAC 6 Clicks Basic Mobility (PT) AM-PAC 6 Clicks Score (PT): 10 AM-PAC 6 Clicks Score (OT): 13 Duglas Mayes PT 07/10/2025 * Therapy Treatment Note - Juani Clark, OT - 07/10/2025 1:36 PM EDT Images from the original note were not included. Patient Name: Trung Pool : 1955 Today's Date: 07/10/2025 Admit Date: 06/25/2025 Visit Dx: ICD-10-CM ICD-9-CM 1. Cellulitis of left lower extremity L03.116 682.6 2. Hematuria, unspecified type R31.9 599.70 3. Urinary tract infection associated with indwelling urethral catheter, initial encounter T83.645Q500.64 N39.0 599.0 4. Diarrhea, unspecified type R19.7 787.91 5. PAD (peripheral artery disease) I73.9 443.9 6. Wound infection T14.8XXA 958.3 L08.9 7. Critical limb ischemia of left lower extremity I70.222 440.22 Patient Active Problem List Diagnosis Acute deep [...] traumatic brain injury Possible meningioma Moderate malnutrition Seizure disorder Adrenal insufficiency Dysphagia Pressure injury of buttock, stage 1 Pressure ulcers of skin of multiple topographic sites Cellulitis of left foot Gangrene History of DVT (deep vein thrombosis) Severe sepsis Hx of migraine headaches Coronary artery disease involving [place] coronary artery of [place] heart without angina pectoris Left leg cellulitis Altered mental status PAD (peripheral artery disease) Wound infection Type 2 diabetes mellitus with diabetic peripheral angiopathy without gangrene, without long-term current use of insulin Mixed hyperlipidemia S/P AKA (above knee amputation), right CHARLIE (acute kidney injury) Type 2 diabetes mellitus, with long-term current use of insulin Arteriovenous fistula, acquired Cellulitis Acute UTI (urinary tract infection) Diarrhea of presumed infectious origin Acute on chronic blood loss anemia BPH without obstruction/lower urinary tract symptoms GERD without esophagitis Bilateral inguinal hernia Gastroenteritis due to norovirus Past Medical History: Diagnosis Date Anemia Cellulitis [...] fusion C3-4; Surgeon: Tyree Tan MD; Location: [facility]; Service: Neurosurgery; Laterality: Bilateral; AORTOGRAM N/A 01/26/2024 Procedure: ABDOMINAL AORTIC ANGIOGRAM, LLE ANGIOGRAM, LEFT ANTERIOR TIBIAL ATHERECTOMY, LEFT ANTERIOR TIBIAL ANGIOPLASTY; Surgeon: Archie Olvera MD; Location: [facility]; Service: Vascular; Laterality: N/A; CONTRAST: 50 ML, FT: 2 MIN 54 SEC, DOSE: 66 MGY. AORTOGRAM Left 07/03/2025 Procedure: ARTERIOGRAM LOWER EXTREMITY; Surgeon: Vaughn Hollingsworth DO; Location: [facility]; Service: Vascular; Laterality: Left; FT-6MINS 24SEC 140 MGY CONTRAST -15ML BACK SURGERY FOR DISC HERNIATION CARDIAC CATHETERIZATION CARDIAC CATHETERIZATION N/A 09/04/2024 Procedure: Peripheral angiography - Left lower extremity angio - Right femoral access; Surgeon: Jared Marcano MD; Location: [facility]; Service: Peripheral Vascular; Laterality: N/A; CORONARY ANGIOPLASTY WITH STENT PLACEMENT stent x 1 INCISION AND DRAINAGE FOOT Left 06/17/2023 Procedure: LEFT FOOT DEBRIDEMENT WOUND VACUUM ASSISTED CLOSURE; Surgeon: Cecil Buenrostro Jr., MD;Location: [facility]; Service: Orthopedics; Laterality: Left; INCISION AND DRAINAGE LEG Left 07/25/2023 Procedure: INCISION AND DRAINAGE HEEL, WOUND VAC; Surgeon: Cecil Buenrostro Jr., MD; Location: [facility]; Service: Orthopedics; Laterality: Left; INCISION AND DRAINAGE LEG Left 07/03/2025 Procedure: DEBRIDEMENT WOUND, PLACEMENT OF WOUND VAC; Surgeon: Vaughn Hollingsworth DO; Location: [facility]; Service: Vascular; Laterality: Left; INTERVENTIONAL RADIOLOGY PROCEDURE N/A 05/02/2019 Procedure: IVC FILTER PLACEMENT; Surgeon: Pedro Zapien MD; Location: [facility]; Service: Interventional Radiology INTERVENTIONAL RADIOLOGY PROCEDURE Left 09/07/2024 Procedure: LEFT peroneal arteriovenous fistula embolization - Right femoral access; Surgeon: Jared Marcano MD; Location: [facility] LOCATION; Service: Cardiovascular; Laterality: Left; Please coordinate with Gautam Patel ([facility]) [phone] who will bring coils LUMBAR DISCECTOMY N/A 05/03/2019 Procedure: THORACIC LAMINECTOMY T11-12; Surgeon: Tyree Tan MD; Location: [facility]; Service: Neurosurgery General Information Row Name 07/10/25 1607 OT Time and Intention Document Type therapy note (daily note) -CHRISTA Mode of Treatment occupational therapy -CHRISTA Row Name 07/10/25 1607 General Information Patient Profile Reviewed yes -CHRISTA Existing Precautions/Restrictions fall;other (see comments) Contact Spore; remote R AKA, chronic [place] catheter; 07/03 transmetatarsal debridement and angiogram LLE with wound vac -CHRISTA Barriers to Rehab medically complex;previous functional deficit;physical barrier - Row Name 07/10/25 1607 Occupational Profile Environmental Supports and Barriers (Occupational Profile) Pt has mia lift at home -CHRISTA Row Name 07/10/25 1607 Cognition Orientation Status (Cognition) oriented x 3 -CHRISTA Row Name 07/10/25 1607 Safety Issues/Impairments Affecting Functional Mobility Safety Issues Affecting Function (Mobility) sequencing abilities;safety precaution awareness - Impairments Affecting Function (Mobility) balance;coordination;endurance/activity tolerance;pain;range of motion (ROM);sensation/sensory awareness;strength -CHRISTA User Llanes (r) = Recorded By, (t) = Taken By, (c) = Cosigned By Initials Name Provider Type Juani Wagoner OT Occupational Therapist Lymphedema Row Name 07/10/25 1330 Lymphedema Edema Assessment Ptting Edema Category By severity - Pitting Edema Moderate -MF Recorded by [MF] Duglas Mayes, PT Skin Changes/Observations Location/Assessment Lower Extremity -MF Lower Extremity Conditions left:;scaly;crust;inflamed - Lower Extremity Color/Pigment left:;erythema -MF Recorded by [MF] Duglas Mayes, PT Compression/Skin Care Compression/Skin Care skin care;wrapping location;bandaging -MF Skin Care washed/dried;lotion applied -MF Wrapping Location lower extremity -MF Wrapping Location LE left:;foot to knee -MF Wrapping Comments unna boot applied in clamshell with kerlix and spandage to secur. -MF Recorded by [MF] [place], Duglas R, PT User Llanes (r) = Recorded By, (t) = Taken By, (c) = Cosigned By Initials Name Effective Dates MF Duglas Mayes, PT 10/16/22 - Mobility/ADL's Row Name 07/10/25 1609 Bed Mobility Bed Mobility supine-sit;sit-supine -CHRISTA Supine-Sit Osteen (Bed Mobility) supervision -CHRISTA Sit-Supine Osteen (Bed Mobility) supervision -CHRISTA Bed Mobility, Safety Issues decreased use of legs for bridging/pushing -CHRISTA Assistive Device (Bed Mobility) bed rails;head of bed elevated -CHRISTA Row Name 07/10/25 1609 Transfers Comment, (Transfers) Declined transfer to chair -CHRISTA Row Name 07/10/25 1609 Sit-Stand Transfer Sit-Stand Osteen (Transfers) unable to assess -CHRISTA Row Name 07/10/25 1609 Functional Mobility Functional Mobility- Ind. Level unable to perform -CHRISTA Row Name 07/10/25 1609 Activities of Daily Living BADL Assessment/Intervention grooming -CHRISTA Row Name 07/10/25 1609 Hygiene Care Oral Care patient refused intervention -CHRISTA Row Name 07/10/25 1609 Grooming Assessment/Training Osteen Level (Grooming) wash face, hands;set up -CHRISTA Position (Grooming) edge of bed sitting -CHRISTA User Llanes (r) = Recorded By, (t) = Taken By, (c) = Cosigned By Initials Name Provider Type Juani Wagoner OT Occupational Therapist Obj/Interventions Row Name 07/10/25 1611 Balance Balance Assessment sitting static balance;sitting dynamic balance -CHRISTA Static Sitting Balance standby assist -CHRISTA Dynamic Sitting Balance contact guard -CHRISTA Position, Sitting Balance unsupported;sitting edge of bed -CHRISTA User Llanes (r) = Recorded By, (t) = Taken By, (c) = Cosigned By Initials Name Provider Type Juani Wagoner OT Occupational Therapist Goals/Plan No documentation. Clinical Impression Row Name 07/10/25 1614 Pain Assessment Pretreatment Pain Rating 04/22 -CHRISTA Posttreatment Pain Rating 04/22 -CHRISTA Pain Location extremity -CHRISTA Pain Side/Orientation left;lower -CHRISTA Pain Management Interventions exercise or physical activity utilized -CHRISTA Response to Pain Interventions activity participation with tolerable pain -CHRISTA Row Name 07/10/25 1614 Plan of Care Review Plan of Care Reviewed With patient -CHRISTA Progress no change -CHRISTA Outcome Evaluation Pt gave good effort for all activity this date, receptive to education regardingrehab potential should he choose to move forward with surgery. Pt voiced concerns about past therapy experience, his current challenges with R AKA, and being a burden to family and friends. Concerns a ddressed and pt reassured that OT is available if needed to continue conversation. Continue to progress self-care and functional mobility per OT POC. -CHRISTA Row Name 07/10/25 1614 Therapy Plan Review/Discharge Plan (OT) Anticipated Discharge Disposition (OT) intermediate facility -CHRISTA Row Name 07/10/25 1614 Vital Signs O2 Delivery Pre Treatment room air -CHRISTA O2 Delivery Intra Treatment room air -CHRISTA O2 Delivery Post Treatment room air -CHRISTA Pre Patient Position Supine -CHRISTA Intra Patient Position Sitting -CHRISTA Post Patient Position Supine -CHRISTA Row Name 07/10/25 1614 Positioning and Restraints Pre-Treatment Position in bed -CHRISTA Post Treatment Position bed -CHRISTA In Bed with other staff -CHRISTA User Llanes (r) = Recorded By, (t) = Taken By, (c) = Cosigned By Initials Name Provider Type Juani Wagoner, OT Occupational Therapist Outcome Measures Row Name 07/10/25 1623 How much help from another is currently needed... Putting on and taking off regular lower body clothing? 1 -CHRISTA Bathing (including washing, rinsing, and drying) 2 -CHRISTA Toileting (which includes using toilet bed chavis or urinal) 1 -CHRISTA Putting on and taking off regular upper body clothing 3 -CHRISTA Taking care of personal grooming (such as brushing teeth) 3 -CHRISTA Eating meals 4 -CHRISTA AM-PAC 6 Clicks Score (OT) 14 -CHRISTA Row Name 07/10/25 1531 How much help from another person do you currently need... Turning from your back to your side while in flat bed without using bedrails? 3 -IG Moving from lying on back to sitting on the side of a flat bed without bedrails? 3 -IG Moving to and from a bed to a chair (including a wheelchair)? 1 -IG Standing up from a chair using your arms (e.g., wheelchair, bedside chair)? 1 -IG Climbing 3-5 steps with a railing? 1 -IG To walk in hospital room? 1 -IG AM-PAC 6 Clicks Score (PT) 10 -IG Highest Level of Mobility Goal Move to Chair/Commode-4 -IG Row Name 07/10/25 1623 07/10/25 1531 Functional Assessment Outcome Measure Options AM-PAC 6 Clicks Daily Activity (OT) -CHRISTA AM-PAC 6 Clicks Basic Mobility (PT)-IG User Llanes (r) = Recorded By, (t) = Taken By, (c) = Cosigned By Initials Name Provider Type Juani Wagoner OT Occupational Therapist IG Hayden Matias PT Physical Therapist Occupational Therapy Education Title: PT OT HOMICIDE INVESTIGATOR Therapies (In Progress) Topic: Occupational Therapy (In Progress) Point: ADL training (Done) Learning Progress Summary Patient Acceptance, E, VU,NR by CHRISTA at 07/10/2025 1624 Comment: OT POC; snf goals; rehab potential; discharge planning User Llanes Initials Effective Dates Name Provider Type Discipline 02/26/21 - Juani Clark OT Occupational Therapist OT OT Recommendation and Plan Recommended discharge disposition is based on the functional assessment performed by PT/OT/Speech therapy (as applicable) and may not reflect the medical necessity determined by your provider or services covered by an individual patient's insurance plan or patient resource. Plan of Care Review Plan of Care Reviewed With: patient Progress: no change Outcome Evaluation: Pt gave good effort for all activity this date, receptive to education regarding rehab potential should he choose to move forward with surgery. Pt voiced concerns about past therapy experience, his current challenges with R AKA, and being a burden to family and friends. Concerns addressed and pt reassured that OT is available if needed to continue conversation. Continue to progress self-care and functional mobility per OT POC. Time Calculation: Time Calculation- OT Row Name 07/10/25 1336 Time Calculation- OT OT Start Time 1336 -CHRISTA OT Received On 07/10/25 -CHRISTA Timed Charges 01176 - OT Self Care/Mgmt Minutes 25 -CHRISTA Total Minutes Timed Charges Total Minutes 25 -CHRISTA Total Minutes 25 -CHRISTA User Llanes (r) = Recorded By, (t) = Taken By, (c) = Cosigned By Initials Name Provider Type Juani Wagoner OT Occupational Therapist Therapy Charges for Today Code Description Service Date Service Provider Modifiers Qty [id number] HC OT SELF CARE/MGMT/TRAIN EA 15 MIN 07/10/2025 Juani Clark OT GO 2 Juani Clark OT 07/10/2025 * Therapy Progress Report/Re-Cert - Hayden Matias, PT - 07/10/2025 11:20 AM EDT Images from the original note were not included. Patient Name: Trung Pool : 1955 Today's Date: 07/10/2025 Admit Date: 06/25/2025 Visit Dx: ICD-10-CM ICD-9-CM 1. Cellulitis of left lower extremity L03.116 682.6 2. Hematuria, unspecified type R31.9 599.70 3. Urinary tract infection associated with indwelling urethral catheter, initial encounter T83.236H441.64 N39.0 599.0 4. Diarrhea, unspecified type R19.7 787.91 5. PAD (peripheral artery disease) I73.9 443.9 6. Wound infection T14.8XXA 958.3 L08.9 7. Critical limb ischemia of left lower extremity I70.222 440.22 Patient Active Problem List Diagnosis Acute deep [...] traumatic brain injury Possible meningioma Moderate malnutrition Seizure disorder Adrenal insufficiency Dysphagia Pressure injury of buttock, stage 1 Pressure ulcers of skin of multiple topographic sites Cellulitis of left foot Gangrene History of DVT (deep vein thrombosis) Severe sepsis Hx of migraine headaches Coronary artery disease involving [place] coronary artery of [place] heart without angina pectoris Left leg cellulitis Altered mental status PAD (peripheral artery disease) Wound infection Type 2 diabetes mellitus with diabetic peripheral angiopathy without gangrene, without long-term current use of insulin Mixed hyperlipidemia S/P AKA (above knee amputation), right CHARLIE (acute kidney injury) Type 2 diabetes mellitus, with long-term current use of insulin Arteriovenous fistula, acquired Cellulitis Acute UTI (urinary tract infection) Diarrhea of presumed infectious origin Acute on chronic blood loss anemia BPH without obstruction/lower urinary tract symptoms GERD without esophagitis Bilateral inguinal hernia Gastroenteritis due to norovirus Past Medical History: Diagnosis Date Anemia Cellulitis Diabetes mellitus Frequent falls History of DVT (deep vein thrombosis) Hyperlipidemia Hypertension Migraines Myocardial infarction Peripheral neuropathy Pneumonia Spinal stenosis Wears dentures FULL Wears glasses Past Surgical History: Procedure Laterality Date ABOVE KNEE AMPUTATION Right AMPUTATION DIGIT Left 01/28/2024 Procedure: SECOND AND THIRD TOE AMPUTATION LEFT; Surgeon: Cecil Buenrostro Jr., MD; Location: [facility]; Service: Orthopedics; Laterality: Left; ANTERIOR CERVICAL DISCECTOMY W/ FUSION Bilateral 07/17/2020 Procedure: Cervical discectomy anterior with fusion C3-4; Surgeon: Tyree Tan MD; Location:[facility]; Service: Neurosurgery; Laterality: Bilateral; AORTOGRAM N/A 01/26/2024 Procedure: ABDOMINAL AORTIC ANGIOGRAM, LLE ANGIOGRAM, LEFT ANTERIOR TIBIAL ATHERECTOMY, LEFT ANTERIOR TIBIAL ANGIOPLASTY; Surgeon: Archie Olvera MD; Location: [facility]; Service: Vascular; Laterality: N/A; CONTRAST: 50 ML, FT: 2 MIN 54 SEC, DOSE: 66 MGY. AORTOGRAM Left 07/03/2025 Procedure: ARTERIOGRAM LOWER EXTREMITY; Surgeon: Vaughn Hollingsworth DO; Location: [facility]; Service: Vascular; Laterality: Left; FT-6MINS 24SEC 140 MGY CONTRAST -15ML BACK SURGERY FOR DISC HERNIATION CARDIAC CATHETERIZATION CARDIAC CATHETERIZATION N/A 09/04/2024 Procedure: Peripheral angiography - Left lower extremity angio - Right femoral access; Surgeon: Jared Marcano MD; Location: [facility]; Service: Peripheral Vascular; Laterality: N/A; CORONARY ANGIOPLASTY WITH STENT PLACEMENT stent x 1 INCISION AND DRAINAGE FOOT Left 06/17/2023 Procedure: LEFT FOOT DEBRIDEMENT WOUND VACUUM ASSISTED CLOSURE; Surgeon: Cecil Buenrostro Jr., MD;Location: [facility]; Service: Orthopedics; Laterality: Left; INCISION AND DRAINAGE LEG Left 07/25/2023 Procedure: INCISION AND DRAINAGE HEEL, WOUND VAC; Surgeon: Cecil Buenrostro Jr., MD; Location: [facility]; Service: Orthopedics; Laterality: Left; INCISION AND DRAINAGE LEG Left 07/03/2025 Procedure: DEBRIDEMENT WOUND, PLACEMENT OF WOUND VAC; Surgeon: Vaughn Hollingsworth DO; Location: [facility]; Service: Vascular; Laterality: Left; INTERVENTIONAL RADIOLOGY PROCEDURE N/A 05/02/2019 Procedure: IVC FILTER PLACEMENT; Surgeon: Pedro Zapien MD; Location: [facility]; Service: Interventional Radiology INTERVENTIONAL RADIOLOGY PROCEDURE Left 09/07/2024 Procedure: LEFT peroneal arteriovenous fistula embolization - Right femoral access; Surgeon: Jared Marcano MD; Location: [facility]; Service: Cardiovascular; Laterality: Left; Please coordinate with Gautam Patel ([facility]) [phone] who will bring coils LUMBAR DISCECTOMY N/A 05/03/2019 Procedure: THORACIC LAMINECTOMY T11-12; Surgeon: Tyree Tan MD; Location: [facility]; Service: Neurosurgery General Information Row Name 07/10/25 1510 Physical Therapy Time and Intention Document Type progress note/recertification -IG Mode of Treatment physical therapy first session individual treatment, second session patient was seen with OT -IG Row Name 07/10/25 1517 General Information Patient Profile Reviewed yes -IG Existing Precautions/Restrictions fall;other (see comments) 07/03 transmetatarsal debridement and angiogram LLE with wound vac -IG Barriers to Rehab medically complex;previous functional deficit -IG Row Name 07/10/25 1514 Cognition Orientation Status (Cognition) oriented x 3 -IG Row Name 07/10/25 1519 Safety Issues/Impairments Affecting Functional Mobility Safety Issues Affecting Function (Mobility) sequencing abilities -IG Impairments Affecting Function (Mobility) balance;endurance/activity tolerance;pain;strength;sensation/sensory awareness;range of motion (ROM) -IG Comment, Safety Issues/Impairments (Mobility) sequencing cues -IG User Llanes (r) = Recorded By, (t) = Taken By, (c) = Cosigned By Initials Name Provider Type IG Hayden Matias PT Physical Therapist Mobility Row Name 07/10/25 151 Bed Mobility Bed Mobility scooting/bridging;[id number] -IG Scooting/Bridging Osteen (Bed Mobility) standby assist -IG Gbqjnk-Bmy-Yasbpz Osteen (Bed Mobility) standby assist -IG Assistive Device (Bed Mobility) bed rails -IG Comment, (Bed Mobility) utilized trendelenburg and bed rails for scooting toward HOB -IG Row Name 07/10/25 1517 Transfers Comment, (Transfers) While sitting EOB, Patient was able to scoot L and R approximately 1-2 ft to demonstrate his transfer abilities w/o LLE on floor. -IG User Llanes (r) = Recorded By, (t) = Taken By, (c) = Cosigned By Initials Name Provider Type Hayden Anne, MARY Physical Therapist Obj/Interventions Row Name 07/10/25 1519 Range of Motion Comprehensive General Range of Motion bilateral lower extremity ROM WFL -IG Row Name 07/10/25 151 Strength Comprehensive (MMT) Comment, General Manual Muscle Testing (MMT) Assessment not tested -IG Row Name 07/10/25 151 Motor Skills Motor Skills functional endurance -IG Functional Endurance no fatigue w/ activities at EOB -IG Row Name 07/10/25 1519 Balance Balance Assessment sitting static balance;sitting dynamic balance -IG Static Sitting Balance standby assist -IG Dynamic Sitting Balance contact guard -IG Comment, Balance Shifting outside of RASHIDA w/ CGA -IG User Llanes (r) = Recorded By, (t) = Taken By, (c) = Cosigned By Initials Name Provider Type Hayden Anne, PT Physical Therapist Goals/Plan Row Name 07/10/251529 Bed Mobility Goal 1 (PT) Activity/Assistive Device (Bed Mobility Goal 1, PT) supine to sit;rolling to left;rolling to right -IG Osteen Level/Cues Needed (Bed Mobility Goal 1, PT) independent -IG Time Frame (Bed Mobility Goal 1, PT) short term goal (STG);5 days -IG Progress/Outcomes (Bed Mobility Goal 1, PT) goal ongoing -IG Row Name 07/10/251529 Transfer Goal 1 (PT) Activity/Assistive Device (Transfer Goal 1, PT) [id number] -IG Osteen Level/Cues Needed (Transfer Goal 1, PT) independent -IG Time Frame (Transfer Goal 1, PT) lobsterman goal (LTG);10 days -IG Strategies/Barriers (Transfers Goal 1, PT) w/ slide board or w/o -IG Progress/Outcome (Transfer Goal 1, PT) new goal -IG Row Name 07/10/251529 Balance Goal 1 (PT) Activity/Assistive Device (Balance Goal) sitting dynamic balance -IG Osteen Level/Cues Needed (Balance Goal 1, PT) supervision required -IG Time Frame (Balance Goal 1, PT) short-term goal (STG);3-5 days -IG Progress/Outcomes (Balance Goal 1, PT) goal ongoing -IG Row Name 07/10/25 1530 Therapy Assessment/Plan (PT) Planned Therapy Interventions (PT) balance training;bed mobility training;patient/family education;postural re-education;strengthening;transfer training -IG User Llanes (r) = Recorded By, (t) = Taken By, (c) = Cosigned By Initials Name Provider Type IG Hayden Matias, PT Physical Therapist Clinical Impression Row Name 07/10/25 1520 Pain Pretreatment Pain Rating 8/10 -IG Posttreatment Pain Rating 10 -IG Pain Location extremity -IG Pain Side/Orientation lower;left -IG Pain Management Interventions exercise or physical activity utilized -IG Response to Pain Interventions activity participation with tolerable pain -IG Row Name 07/10/25 1520 Plan of Care Review Plan of Care Reviewed With patient -IG Progress improving -IG Outcome Evaluation Patient participated well in therapy transferring to EOB performing scooting L and R and weight shifting activities. Significant time was spent educating patient on the potential options if he were to go through w/ surgery regarding functional mobility and rehab process. Patient remains limited by deconditioning/weakness and would cont to benefit from skilled IPPT. -IG Row Name 07/10/25 152 Therapy Assessment/Plan (PT) Patient/Family Therapy Goals Statement (PT) to become more independent -IG Rehab Potential (PT) good -IG Criteria for Skilled Interventions Met (PT) yes;meets criteria;skilled treatment is necessary -IG Therapy Frequency (PT) daily -IG Predicted Duration of Therapy Intervention (PT) 10 days -IG Row Name 07/10/25 1520 Vital Signs Post Patient Position -- VSS -IG Row Name 07/10/25 1520 Positioning and Restraints Pre-Treatment Position in bed -IG Post Treatment Position bed -IG In Bed notified nsg;supine;call light within reach;encouraged to call for assist w/ wound care PT -IG User Llanes (r) = Recorded By, (t) = Taken By, (c) = Cosigned By Initials Name Provider Type IG Hayden Matias, PT Physical Therapist Outcome Measures Row Name 07/10/25 1531 How much help from another person do you currently need... Turning from your back to your side while in flat bed without using bedrails? 3 -IG Moving from lying on back to sitting on the side of a flat bed without bedrails? 3 -IG Moving to and from a bed to a chair (including a wheelchair)? 1 -IG Standing up from a chair using your arms (e.g., wheelchair, bedside chair)? 1 -IG Climbing 3-5 steps with a railing? 1 -IG To walk in hospital room? 1 -IG AM-PAC 6 Clicks Score (PT) 10 -IG Highest Level of Mobility Goal Move to Chair/Commode-4 -IG Row Name 07/10/25 1531 Functional Assessment Outcome Measure Options AM-PAC 6 Clicks Basic Mobility (PT) -IG User Llanes (r) = Recorded By, (t) = Taken By, (c) = Cosigned By Initials Name Provider Type Hayden Anne, PT Physical Therapist Physical Therapy Education Title: PT OT HOMICIDE INVESTIGATOR Therapies (In Progress) Topic: Physical Therapy (Done) Point: Mobility training (Done) Learning Progress Summary Patient Acceptance, E, VU by IG at 07/10/2025 1532 Comment: PT POC Acceptance, E, VU by IG at 07/05/2025 1624 Comment: PT POC Acceptance, E, VU,NR by ML at 06/29/2025 0907 Acceptance, E, VU,NR by NS at 06/26/2025 1618 Point: Home exercise program (Done) Learning Progress Summary Patient Acceptance, E, VU by IG at 07/10/2025 1532 Comment: PT POC Acceptance, E, VU by IG at 07/05/2025 1624 Comment: PT POC Acceptance, E, VU,NR by NS at 06/26/2025 1618 Point: Body mechanics (Done) Learning Progress Summary Patient Acceptance, E, VU by IG at 07/10/2025 1532 Comment: PT POC Acceptance, E, VU by IG at 07/05/2025 1624 Comment: PT POC Acceptance, E, VU,NR by NS at 06/26/2025 1618 Point: Precautions (Done) Learning Progress Summary Patient Acceptance, E, VU by IG at 07/10/2025 1532 Comment: PT POC Acceptance, E, VU by IG at 07/05/2025 1624 Comment: PT POC Acceptance, E, VU,NR by ML at 06/29/2025 0907 Acceptance, E, VU,NR by NS at 06/26/2025 1618 User Llanes Initials Effective Dates Name Provider Type Discipline NS 02/26/21 - Mirela Hsu, PT Physical Therapist PT ML 01/02/21 - Leonie Thomas Physical Therapist PT IG 04/19/25 - Hayden Matias PT Physical Therapist PT PT Recommendation and Plan Recommended discharge disposition is based on the functional assessment performed by PT/OT/Speech therapy (as applicable) and may not reflect the medical necessity determined by your provider or services covered by an individual patient's insurance plan or patient resource. Planned Therapy Interventions (PT): balance training, bed mobility training, patient/family education, postural re-education, strengthening, transfer training Therapy Frequency (PT): daily Progress: improving Outcome Evaluation: Patient participated well in therapy transferring to EOB performing scooting L and R and weight shifting activities. Significant time was spent educating patient on the potential options if he were to go through w/ surgery regarding functional mobility and rehab process. Patientremains limited by deconditioning/weakness and would cont to benefit from skilled IPPT. Time Calculation: PT Charges Row Name 07/10/25 1532 Time Calculation Start Time 1120 -IG PT Received On 07/10/25 -IG PT Goal Re-Cert Due Date 07/20/25 -IG Timed Charges 45582 - PT Therapeutic Activity Minutes 70 -IG Total Minutes Timed Charges Total Minutes 70 -IG Total Minutes 70 -IG User Llanes (r) = Recorded By, (t) = Taken By, (c) = Cosigned By Initials Name Provider Type IG Hayden Matias PT Physical Therapist Therapy Charges for Today Code Description Service Date Service Provider Modifiers Qty [id number] PT THERAPEUTIC ACT EA 15 MIN 07/10/2025 Hayden Matias PT GP 5 PT G-Codes Outcome Measure Options: AM-PAC 6 Clicks Basic Mobility (PT) AM-PAC 6 Clicks Score (PT): 10 AM-PAC 6 Clicks Score (OT): 13 PT Discharge Summary Anticipated Discharge Disposition (PT): inpatient rehabilitation facility Hayden Matias PT 07/10/2025 * Case Management/Social Work - Monalisa Reilly RN - 07/09/2025 4:13 PM EDT Continued Stay Note Abdullahi Patient Name: Trung Pool Today's Date: 07/09/2025 Admit Date: 06/25/2025 Plan: To be determined Discharge Plan Row Name 07/09/25 1603 Plan Plan To be determined Plan Comments Discussed Mr Pool in MDR. Unfortunately Mr Pool is at the point where he is requiringan amputation of his leg, and he will need senior living antibiotics for this. Mr Pool continues to refuse short term rehab, however he will be on antibiotics that will require assistance. He also refuses to ask his sister for assistance, and home health cannot be at Mr Pool's house every day with antibiotics. I have spoken with PT and OT, and have asked them if they believe that Mr Pool would be teachable for transfers after his surgery. PT and OT have agreed to do this, however Mr Pool refused towork with therapy today. Case management will continue to follow. Discharge Codes No documentation. Expected Discharge Date and Time Expected Discharge Date Expected Discharge Time Jul 10, 2025 Monalisa Reilly RN * Therapy Wound Care Treatment - Duglas Mayes, PT - 07/06/2025 9:08 AM EDT Images from the original note were not included. Acute Care - Wound/Debridement Treatment Note Abdullahi Patient Name: Trung Pool : 1955 Today's Date: 07/06/2025 Admit Date: 06/25/2025 Visit Dx: ICD-10-CM ICD-9-CM 1. Cellulitis of left lower extremity L03.116 682.6 2. Hematuria, unspecified type R31.9 599.70 3. Urinary tract infection associated with indwelling urethral catheter, initial encounter T83.345Q736.64 N39.0 599.0 4. Diarrhea, unspecified type R19.7 787.91 5. PAD (peripheral artery disease) I73.9 443.9 6. Wound infection T14.8XXA 958.3 L08.9 7. Critical limb ischemia of left lower extremity I70.222 440.22 Patient Active Problem List Diagnosis Acute deep [...] traumatic brain injury Possible meningioma Moderate malnutrition Seizure disorder Adrenal insufficiency Dysphagia Pressure injury of buttock, stage 1 Pressure ulcers of skin of multiple topographic sites Cellulitis of left foot Gangrene History of DVT (deep vein thrombosis) Severe sepsis Hx of migraine headaches Coronary artery disease involving [place] coronary artery of [place] heart without angina pectoris Left leg cellulitis Altered mental status PAD (peripheral artery disease) Wound infection Type 2 diabetes mellitus with diabetic peripheral angiopathy without gangrene, without long-term current use of insulin Mixed hyperlipidemia S/P AKA (above knee amputation), right CHARLIE (acute kidney injury) Type 2 diabetes mellitus, with long-term current use of insulin Arteriovenous fistula, acquired Cellulitis Acute UTI (urinary tract infection) Diarrhea of presumed infectious origin Acute on chronic blood loss anemia BPH without obstruction/lower urinary tract symptoms GERD without esophagitis Bilateral inguinal hernia Gastroenteritis due to norovirus Past Medical History: Diagnosis Date Anemia Cellulitis [...] TIBIAL ANGIOPLASTY; Surgeon: Archie Olvera MD; Location: [facility]; Service: Vascular; Laterality: N/A; CONTRAST: 50 ML, FT: 2 MIN 54 SEC, DOSE: 66 MGY. AORTOGRAM Left 07/03/2025 Procedure: ARTERIOGRAM LOWER EXTREMITY; Surgeon: Vaughn Hollingsworth DO; Location: [facility]; Service: Vascular; Laterality: Left; FT-6MINS 24SEC 140 MGY CONTRAST -15ML BACK SURGERY FOR DISC HERNIATION CARDIAC CATHETERIZATION [...] ASSISTED CLOSURE; Surgeon: Cecil Buenrostro Jr., MD;Location: [facility]; Service: Orthopedics; Laterality: Left; INCISION AND DRAINAGE LEG Left 07/25/2023 Procedure: INCISION AND DRAINAGE HEEL, WOUND VAC; Surgeon: Cecil Buenrostro Jr., MD; Location: [facility]; Service: Orthopedics; Laterality: Left; INCISION AND DRAINAGE LEG Left 07/03/2025 Procedure: DEBRIDEMENT WOUND, PLACEMENT OF WOUND VAC; Surgeon: Vaughn Hollingsworth DO; Location: [facility]; Service: Vascular; Laterality: Left; INTERVENTIONAL RADIOLOGY PROCEDURE N/A 05/02/2019 Procedure: IVC FILTER PLACEMENT; Surgeon: Pedro Zapien MD; Location: [facility]; Service: Interventional Radiology INTERVENTIONAL RADIOLOGY PROCEDURE Left 09/07/2024 Procedure: LEFT peroneal arteriovenous fistula embolization - Right femoral access; Surgeon: Jared Marcano MD; Location: [facility]; Service: Cardiovascular; Laterality: Left; Please coordinate with Gautam Patel ([facility]) [phone] who will bring coils LUMBAR DISCECTOMY N/A 05/03/2019 Procedure: THORACIC LAMINECTOMY T11-12; Surgeon: Tyree Tan MD; Location: [facility] OR; Service: Neurosurgery Wound 01/28/24 Left anterior second toe Incision (Active) Dressing Appearance intact;moist drainage 07/06/25 0800 Dressing Removed Type other (see comments) 07/06/25 0800 Confirmed Empty Wound Bed Yes, visual inspection of wound bed 07/06/25799 Base moist;pink;red 07/06/25799 Periwound pink;redness 07/06/25799 Periwound Temperature warm 07/06/25799 Periwound Skin Turgor soft 07/06/25799 Edges irregular 07/06/25799 Wound Length (cm) 3 cm 07/06/25799 Wound Width (cm) 6 cm 07/06/25799 Wound Depth (cm) 0.1 cm 07/06/25799 Wound Surface Area (cm^2) 14.14 cm^2 07/06/25799 Wound Volume (cm^3) 0.942 cm^3 07/06/25799 Drainage Characteristics/Odor serosanguineous 07/06/25799 Drainage Amount scant 07/06/25799 Care, Wound irrigated with;wound cleanser;negative pressure wound therapy 07/06/25799 Dressing Care dressing changed 07/06/25799 Periwound Care cleansed with pH balanced cleanser;dry periwound area maintained 07/06/25799 Wound Output (mL) 20 07/06/25799 Wound Left posterior heel (Active) Closure Open to air 07/05/251829 Periwound redness 07/05/251829 Wound 06/26/25 0150 Left medial coccyx Pressure Injury (Active) Dressing Appearance open to air 07/05/252243 Closure None 07/05/251829 Base red;white;moist 07/05/252243 Periwound moist;pink;redness 07/05/252243 Periwound Temperature warm 07/05/252243 Periwound Skin Turgor soft 07/05/252243 Drainage Characteristics/Odor bleeding controlled 07/05/252243 Drainage Amount scant 07/05/25 1830 Care, Wound barrier applied 07/05/252243 Periwound Care barrier ointment applied 07/05/252243 Wound 06/26/25 0150 Left posterior greater trochanter Pressure Injury (Active) Dressing Appearance intact;dry 07/05/252243 Closure Open to air 07/05/252243 Base red;moist 07/05/252243 Periwound pink;moist 07/05/252243 Drainage Characteristics/Odor bleeding controlled 07/05/252243 Drainage Amount scant 07/05/252243 Care, Wound cleansed with 07/05/252243 Periwound Care barrier ointment applied 07/05/252243 Wound 06/26/25 0150 Right posterior greater trochanter Pressure Injury (Active) Dressing Appearance dry;intact 07/05/252243 Closure None;Open to air 07/05/252243 Base moist;red 07/05/252243 Periwound pink;moist 07/05/252243 Drainage Characteristics/Odor bleeding controlled 07/05/252243 Drainage Amount none 07/05/252243 Care, Wound cleansed with 07/05/252243 Periwound Care barrier ointment applied 07/05/252243 Wound 07/03/25 1535 Right anterior groin Traumatic Skin Tear (Active) Base bleeding;clean;red 07/05/251829 Drainage Characteristics/Odor bleeding controlled 07/05/251829 Drainage Amount scant 07/05/251829 NPWT (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 Wound Therapy) 07/03/25 LEFT FOOT (Active) Therapy Setting continuous therapy 07/06/25 08 Dressing foam, black 07/06/25 08 Pressure Setting 125 mmHg 07/06/25 08 Sponges Inserted 1 07/06/25799 Sponges Removed 1 07/06/25 08 Finger sweep complete Yes 07/06/25 08 WOUND DEBRIDEMENT PT Assessment (Last 12 Hours) PT Evaluation and Treatment Row Name 07/06/25 08 Physical Therapy Time and Intention Subjective Information complains of;weakness;fatigue;pain -MF Document Type therapy note (daily note);wound care -MF Mode of Treatment individual therapy;physical therapy - Row Name 07/06/25 08 Pain Pain Side/Orientation generalized - Row Name 07/06/25 08 Pain Scale: FACES Pre/Post-Treatment Pain: FACES Scale, Pretreatment 4-->hurts little more -MF Posttreatment Pain Rating 4-->hurts little more -MF Row Name Wound 06/26/25 0150 Left medial coccyx Pressure Injury Wound - Properties Group Placement Date: 06/26/25 - Placement Time: 149 Present on Original Admission: Y -EW Side: Left -EW Orientation: medial -EW Location: coccyx -EW Primary Wound Type: Pressure Inj -EW Retired Wound - Properties Group Placement Date: 06/26/25 Placement Time: 0150 -EW Present on Original Admission: Y -EW Side: Left -EW Orientation: medial -EW Location: coccyx -EW Retired Wound - Properties Group Placement Date: 06/26/25 Placement Time: 0150 -EW Present on Original Admission: Y -EW Side: Left -EW Orientation: medial -EW Location: coccyx -EW Retired Wound - Properties Group Date first assessed: 06/26/25 Time first assessed: 0150 -EW Present on Original Admission: Y -EW Side: Left -EW Location: coccyx -EW Row Name Wound 06/26/25 0150 Left posterior greater trochanter Pressure Injury Wound - Properties Group Placement Date: 06/26/25 Placement Time: 0150 -EW Present on Original Admission: Y -EW Side: Left -EW Orientation: posterior -EW Location: greater trochanter -EW Primary Wound Type: Pressure Inj -EW Retired Wound - Properties Group Placement Date: 06/26/25 Placement Time: 0150 -EW Present on Original Admission: Y -EW Side: Left -EW Orientation: posterior -EW Location: greater trochanter -EW Retired Wound - Properties Group Placement Date: 06/26/25 Placement Time: 0150 -EW Present on Original Admission: Y -EW Side: Left -EW Orientation: posterior -EW Location: greater trochanter -EW Retired Wound - Properties Group Date first assessed: 06/26/25 Time first assessed: 0150 -EW Present on Original Admission: Y -EW Side: Left -EW Location: greater trochanter -EW Row Name Wound 06/26/25 0150 Right posterior greater trochanter Pressure Injury Wound - Properties Group Placement Date: 06/26/25 Placement Time: 0150 -EW Present on Original Admission: Y -EW Side: Right -EW Orientation: posterior -EW Location: greater trochanter -EW PrimaryWound Type: Pressure Inj -EW Retired Wound - Properties Group Placement Date: 06/26/25 Placement Time: 0150 -EW Present on Original Admission: Y -EW Side: Right -EW Orientation: posterior -EW Location: greater trochanter -EW Retired Wound - Properties Group Placement Date: 06/26/25 Placement Time: 0150 -EW Present on Original Admission: Y -EW Side: Right -EW Orientation: posterior -EW Location: greater trochanter -EW Retired Wound - Properties Group Date first assessed: 06/26/25 - Time first assessed: 149 Present on Original Admission: Y -EW Side: Right -EW Location: greater trochanter -EW Row Name Wound Left posterior heel Wound - Properties Group Present on Original Admission: Y -MR Side: Left -MR Orientation: posterior-MR Location: heel -MR Primary Wound Type: Pressure inj -MR Retired Wound - Properties Group Present on Original Admission: Y -MR Side: Left -MR Orientation: posterior -MR Location: heel -MR Primary Wound Type: Pressure inj -MR Retired Wound - Properties Group Present on Original Admission: Y -MR Side: Left -MR Orientation: posterior -MR Location: heel -MR Primary Wound Type: Pressure inj -MR Retired Wound - Properties Group Present on Original Admission: Y -MR Side: Left -MR Location: heel-MR Primary Wound Type: Pressure inj -MR Row Name 07/06/25 0800 Wound 01/28/24 Left anterior second toe Incision Wound - Properties Group Placement Date: 01/28/24 - Present on Original Admission: N -MJ Side: Left -MJ Orientation: anterior -MJ Location: second toe - MJ Primary Wound Type: Incision -MJ Dressing Appearance intact;moist drainage -MF Dressing Removed Type other (see comments) vac - Confirmed Empty Wound Bed Yes, visual inspection of wound bed - Base moist;pink;red -MF Periwound pink;redness - Periwound Temperature warm - Periwound Skin Turgor soft - Edges irregular -MF Wound Length (cm) 3 cm -MF Wound Width (cm) 6 cm -MF Wound Depth (cm) 0.1 cm -MF Wound Surface Area (cm^2) 14.14 cm^2 -MF Wound Volume (cm^3) 0.942 cm^3 -MF Drainage Characteristics/Odor serosanguineous -MF Drainage Amount scant - Care, Wound irrigated with;wound cleanser;negative pressure wound therapy -MF Dressing Care dressing changed -MF Periwound Care cleansed with pH balanced cleanser;dry periwound area maintained - Wound Output (mL) 20 -MF Retired Wound - Properties Group Placement Date: 01/28/24 - Present on Original Admission: N -MJ Side: Left -MJ Orientation: anterior -MJ Location: second toe -MJ Primary Wound Type: Incision -MJ Retired Wound - Properties Group Placement Date: 01/28/24 -MJ Present on Original Admission: N -MJ Side: Left -MJ Orientation: anterior -MJ Location: second toe -MJ Primary Wound Type: Incision -MJ Retired Wound - Properties Group Date first assessed: 01/28/24 -MJ Present on Original Admission: N-MJ Side: Left -MJ Location: second toe -MJ Primary Wound Type: Incision -MJ Row Name Wound 01/15/24 194 Left lower leg Other (comment) Wound - Properties Group Placement Date: 01/15/24 -MM Placement Time: 194 -MM Present on Original Admission: Y -MM Side: Left -MM Orientation: lower -MM Location: leg -MM Primary Wound Type: Other -MM, cellulitis Retired Wound - Properties Group Placement Date: 01/15/24 -MM Placement Time: 1940 -MM Present on Original Admission: Y -MM Side: Left -MM Orientation: lower -MM Location: leg -MM Primary Wound Type: Other -MM, cellulitis Retired Wound - Properties Group Placement Date: 01/15/24 -MM Placement Time: 1940 -MM Present on Original Admission: Y -MM Side: Left -MM Orientation: lower -MM Location: leg -MM Primary Wound Type:Other -MM, cellulitis Retired Wound - Properties Group Date first assessed: 01/15/24 -MM Time first assessed: 1940 -MM Present on Original Admission: Y -MM Side: Left -MM Location: leg -MM Primary Wound Type: Other -MM, cellulitis Row Name Wound 07/03/25 Right anterior groin Surgical Puncture Wound - Properties Group Placement Date: 07/03/25 -RS Present on Original Admission: N -RS Side: Right -RS Orientation: anterior -RS Location: groin -RS Primary Wound Type: Surgical -RS Secondary Wound Type - Surgical: Puncture -RS Retired Wound - Properties Group Placement Date: 07/03/25 -RS Present on Original Admission: N -RS Side: Right -RS Orientation: anterior -RS Location: groin -RS Retired Wound - Properties Group Placement Date: 07/03/25 -RS Present on Original Admission: N -RS Side: Right -RS Orientation: anterior -RS Location: groin -RS Retired Wound - Properties Group Date first assessed: 07/03/25 -RS Present on Original Admission: N-RS Side: Right -RS Location: groin -RS Row Name Wound 07/03/25 1535 Right anterior groin Traumatic Skin Tear Wound - Properties Group Placement Date: 07/03/25 -RS Placement Time: 1535 -RS Side: Right -RS Orientation: anterior -RS Location: groin -RS Primary Wound Type: Traumatic -RS Secondary Wound Type - Traumatic: Skin Tear -RS Retired Wound - Properties Group Placement Date: 07/03/25 -RS Placement Time: 153 -RS Side: Right -RS Orientation: anterior -RS Location: groin -RS Retired Wound - Properties Group Placement Date: 07/03/25 -RS Placement Time: 153 -RS Side: Right -RS Orientation: anterior -RS Location: groin -RS Retired Wound - Properties Group Date first assessed: 07/03/25 -RS Time first assessed: 153 -RS Side: Right -RS Location: groin -RS Row Name 07/06/25 08 NPWT (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 Wound Therapy) 07/03/25 LEFT FOOT NPWT (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 Wound Therapy) - Properties Group Placement Date: 07/03/25 -RS Location: LEFT FOOT -RS Additional Comments: PER MD CLARKE REYNOSO Therapy Setting continuous therapy -MF Dressing foam, black -MF Pressure Setting 125 mmHg -MF Sponges Inserted 1 -MF Sponges Removed 1 -MF Finger sweep complete Yes -MF 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) - Properties Group Placement Date: 07/03/25 -RS Location: LEFT FOOT -RS Additional Comments: PER MD CLARKE REYNOSO 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) - Properties Group Placement Date: 07/03/25 -RS Location: LEFT FOOT -RS Additional Comments: PER MD CLARKE REYNOSO 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) - Properties Group Placement Date: 07/03/25 -RS Location: LEFT FOOT -RS Additional Comments: PER MD CLARKE REYNOSO Row Name 07/06/25 08 Coping Observed Emotional State calm;cooperative - Verbalized Emotional State acceptance - Trust Relationship/Rapport care explained - Row Name 07/06/25 08 Plan of Care Review Plan of Care Reviewed With patient - Outcome Evaluation wound vac dressing changed and PT noted beefy red wound bed with minimal depth. PT replaced wound vac, but pt may benefit from transition to basic advanced dressings upon d/c home.-MF Row Name 07/06/25 0800 Positioning and Restraints Pre-Treatment Position in bed -MF Post Treatment Position bed -MF In Bed supine;call light within reach -MF User Llanes (r) = Recorded By, (t) = Taken By, (c) = Cosigned By Initials Name Provider Type MF Duglas Mayes, PT Physical Therapist MR CharlesMargarita, RN Registered Nurse Kristan Giordano RN Registered Nurse Henrietta Blakely RN Registered Nurse Mary Mayes, RN Registered Nurse Alessandra Whitaker, RN Registered Nurse Physical Therapy Education Title: PT OT HOMICIDE INVESTIGATOR Therapies (In Progress) Topic: Physical Therapy (Done) Point: Mobility training (Done) Learning Progress Summary Patient Acceptance, E, VU by IG at 07/05/20251623 Comment: PT POC Acceptance, E, VU,NR by ML at 06/29/2025 0907 Acceptance, E, VU,NR by NS at 06/26/2025 1618 Point: Home exercise program (Done) Learning Progress Summary Patient Acceptance, E, VU by IG at 07/05/20251623 Comment: PT POC Acceptance, E, VU,NR by NS at 06/26/2025 1618 Point: Body mechanics (Done) Learning Progress Summary Patient Acceptance, E, VU by IG at 07/05/2025 1624 Comment: PT POC Acceptance, E, VU,NR by NS at 06/26/2025 1618 Point: Precautions (Done) Learning Progress Summary Patient Acceptance, E, VU by IG at 07/05/2025 1624 Comment: PT POC Acceptance, E, VU,NR by ML at 06/29/2025 0907 Acceptance, E, VU,NR by NS at 06/26/2025 1618 User Llanes Initials Effective Dates Name Provider Type Discipline NS 02/26/21 - Mirela Hsu, PT Physical Therapist PT ML 01/02/21 - Leonie Thomas Physical Therapist PT IG 04/19/25 - Hayden Matias, PT Physical Therapist PT Recommendation and Plan Recommended discharge disposition is based on the functional assessment performed by PT/OT/Speech therapy (as applicable) and may not reflect the medical necessity determined by your provider or services covered by an individual patient's insurance plan or patient resource. Anticipated Discharge Disposition (PT): intermediate facility Planned Therapy Interventions (PT): wound care, patient/family education Therapy Frequency (PT): daily Plan of Care Reviewed With: patient Outcome Evaluation: wound vac dressing changed and PT noted beefy red wound bed with minimal depth.PT replaced wound vac, but pt may benefit from transition to basic advanced dressings upon d/c home. Plan of Care Reviewed With: patient Time Calculation PT Charges Row Name 07/06/25 0800 Time Calculation Start Time 0800 -MF PT Goal Re-Cert Due Date 07/06/25 -MF Untimed Charges 74388-Kih Pressure wound to 50 sqcm 25 -MF Total Minutes Untimed Charges Total Minutes 25 -MF Total Minutes 25 -MF User Llanes (r) = Recorded By, (t) = Taken By, (c) = Cosigned By Initials Name Provider Type Duglas Pathak, PT Physical Therapist Therapy Charges for Today Code Description Service Date Service Provider Modifiers Qty [id number] HC PT NEG PRESS WOUND TO 50SQCM DME1 07/05/2025 Duglas Mayes, PT 1 PT G-Codes Outcome Measure Options: AM-PAC 6 Clicks Basic Mobility (PT) AM-PAC 6 Clicks Score (PT): 10 AM-PAC 6 Clicks Score (OT): 13 Duglas Mayes PT 07/06/2025 * Case Management/Social Work - Kamran Rodriguez, RN - 07/06/2025 9:08 AM EDT Continued Stay Note Abdullahi Patient Name: Trung Pool Today's Date: 07/06/2025 Admit Date: 06/25/2025 Plan: Home with [facility] Discharge Plan Row Name 07/06/25 0907 Plan Plan Home with [facility] Patient/Family in Agreement with Plan yes Plan Comments Spoke with patient at bedside. Plan is home with [facility]. Patient will need [facility] transport. May not qualify for a wound vac. CM will continue to follow. Final Discharge Disposition Code 06 - home with home health care Discharge Codes No documentation. Expected Discharge Date and Time Expected Discharge Date Expected Discharge Time Jun 27, 2025 Kamran Rodriguez, RN * Case Management/Social Work - Monalisa Reilly RN - 07/05/2025 12:43 PM EDT Continued Stay Note Abdullahi Patient Name: Trung Pool Today's Date: 07/05/2025 Admit Date: 06/25/2025 Plan: [facility] Discharge Plan Row Name 07/05/25 1240 Plan Plan [facility] Patient/Family in Agreement with Plan yes Plan Comments Mr Pool is now alert and oriented. I spoke with him at bedside after his surgery. He has a wound vac and is on IV antibiotics. Mr Pool would like to return home with home health, and isnot interested in short term rehab at a intermediate facility. I have called [facility], and they are able to accomodate wound vacs. When Mr Pool is medically ready for discharge, orders can be faxed to [facility] at [phone]. Case management will continue to follow. Final Discharge Disposition Code 06 - home with home health care Discharge Codes No documentation. Expected Discharge Date and Time Expected Discharge Date Expected Discharge Time Jun 27, 2025 Monalisa Reilly RN * Therapy Treatment Note - Hayden Matias, PT - 07/05/2025 10:34 AM EDT Images from the original note were not included. Patient Name: Trung Pool : 1955 Today's Date: 07/05/2025 Admit Date: 06/25/2025 Visit Dx: ICD-10-CM ICD-9-CM 1. Cellulitis of left lower extremity L03.116 682.6 2. Hematuria, unspecified type R31.9 599.70 3. Urinary tract infection associated with indwelling urethral catheter, initial encounter T83.300N235.64 N39.0 599.0 4. Diarrhea, unspecified type R19.7 787.91 5. PAD (peripheral artery disease) I73.9 443.9 6. Wound infection T14.8XXA 958.3 L08.9 7. Critical limb ischemia of left lower extremity I70.222 440.22 Patient Active Problem List Diagnosis Acute deep [...] traumatic brain injury Possible meningioma Moderate malnutrition Seizure disorder Adrenal insufficiency Dysphagia Pressure injury of buttock, stage 1 Pressure ulcers of skin of multiple topographic sites Cellulitis of left foot Gangrene History of DVT (deep vein thrombosis) Severe sepsis Hx of migraine headaches Coronary artery disease involving [place] coronary artery of [place] heart without angina pectoris Left leg cellulitis Altered mental status PAD (peripheral artery disease) Wound infection Type 2 diabetes mellitus with diabetic peripheral angiopathy without gangrene, without long-term current use of insulin Mixed hyperlipidemia S/P AKA (above knee amputation), right CHARLIE (acute kidney injury) Type 2 diabetes mellitus, with long-term current use of insulin Arteriovenous fistula, acquired Cellulitis Acute UTI (urinary tract infection) Diarrhea of presumed infectious origin Acute on chronic blood loss anemia BPH without obstruction/lower urinary tract symptoms GERD without esophagitis Bilateral inguinal hernia Gastroenteritis due to norovirus Past Medical History: Diagnosis Date Anemia Cellulitis [...] 2 MIN 54 SEC, DOSE: 65 MGY. AORTOGRAM Left 07/03/2025 Procedure: ARTERIOGRAM LOWER EXTREMITY; Surgeon: Vaughn Hollingsworth DO; Location: [facility]; Service: Vascular; Laterality: Left; FT-6MINS 24SEC 140 MGY CONTRAST -15ML BACK SURGERY FOR DISC HERNIATION CARDIAC CATHETERIZATION CARDIAC CATHETERIZATION N/A 09/04/2024 Procedure: Peripheral angiography - Left lower extremity angio - Right femoral access; Surgeon: Jared Marcano MD; Location: [facility]VASIVE LOCATION; Service: Peripheral Vascular; Laterality: N/A; CORONARY ANGIOPLASTY WITH STENT PLACEMENT stent x 1 INCISION AND DRAINAGE FOOT Left 06/17/2023 Procedure: LEFT FOOT DEBRIDEMENT WOUND VACUUM ASSISTED CLOSURE; Surgeon: Cecil Buenrostro Jr., MD;Location: [facility]; Service: Orthopedics; Laterality: Left; INCISION AND DRAINAGE LEG Left 07/25/2023 Procedure: INCISION AND DRAINAGE HEEL, WOUND VAC; Surgeon: Cecil Buenrostro Jr., MD; Location: [facility]; Service: Orthopedics; Laterality: Left; INCISION AND DRAINAGE LEG Left 07/03/2025 Procedure: DEBRIDEMENT WOUND, PLACEMENT OF WOUND VAC; Surgeon: Vaughn Hollingsworth DO; Location: [facility]; Service: Vascular; Laterality: Left; INTERVENTIONAL RADIOLOGY PROCEDURE N/A 05/02/2019 Procedure: IVC FILTER PLACEMENT; Surgeon: Pedro Zapien MD; Location: [facility]; Service: Interventional Radiology INTERVENTIONAL RADIOLOGY PROCEDURE Left 09/07/2024 Procedure: LEFT peroneal arteriovenous fistula embolization - Right femoral access; Surgeon: Jared Marcano MD; Location: [facility]ASIVE LOC[facility]; Service: Cardiovascular; Laterality: Left; Please coordinate with Gautam Patel ([facility]) [phone] who will bring coils LUMBAR DISCECTOMY N/A 05/03/2019 Procedure: THORACIC LAMINECTOMY T11-12; Surgeon: Tyree Tan MD; Location: [facility]; Service: Neurosurgery General Information Row Name 07/05/25 1620 Physical Therapy Time and Intention Document Type therapy note (daily note) -IG Mode of Treatment physical therapy;co-treatment -IG Row Name 07/05/25 1620 General Information Patient Profile Reviewed yes -IG Existing Precautions/Restrictions fall;other (see comments) 07/03 transmetatarsal debridement and angiogram LLE with wound vac -IG Barriers to Rehab medically complex;previous functional deficit -IG Row Name 07/05/25 1620 Cognition Orientation Status (Cognition) oriented x 3 -IG Row Name 07/05/25 1620 Safety Issues/Impairments Affecting Functional Mobility Safety Issues Affecting Function (Mobility) awareness of need for assistance;sequencing abilities -IG Impairments Affecting Function (Mobility) balance;endurance/activity tolerance;pain;strength;sensation/sensory awareness;range of motion (ROM) -IG User Llanes (r) = Recorded By, (t) = Taken By, (c) = Cosigned By Initials Name Provider Type Hayden Anne, MARY Physical Therapist Mobility Row Name 07/05/25 1620 Bed Mobility Bed Mobility rolling left;rolling right -IG Rolling Left Osteen (Bed Mobility) standby assist -IG Rolling Right Osteen (Bed Mobility) standby assist -IG Assistive Device (Bed Mobility) bed rails -IG Row Name 07/05/25 1620 Bed-Chair Transfer Bed-Chair Osteen (Transfers) dependent (less than 25% patient effort);2 person assist -IG Assistive Device (Bed-Chair Transfers) lift device -IG User Llanes (r) = Recorded By, (t) = Taken By, (c) = Cosigned By Initials Name Provider Type Hayden Anne, MARY Physical Therapist Obj/Interventions Row Name 07/05/25 1621 Motor Skills Motor Skills functional endurance -IG Functional Endurance fatigued w/ minimal activity -IG Row Name 07/05/25 1621 Balance Balance Assessment sitting static balance;sitting dynamic balance -IG Static Sitting Balance standby assist -IG Dynamic Sitting Balance standby assist SBA with intermittent CGA to min A with posterior LOB in recliner -IG Position, Sitting Balance unsupported;sitting in chair -IG Comment, Balance perturbations/resistance provided by therapist in all directions. -IG User Llanes (r) = Recorded By, (t) = Taken By, (c) = Cosigned By Initials Name Provider Type Hayden Anne, MARY Physical Therapist Goals/Plan No documentation. Clinical Impression Row Name 07/05/25 1622 Pain Pretreatment Pain Rating 6/10 -IG Posttreatment Pain Rating 6/10 -IG Pain Location buttock;extremity -IG Pain Side/Orientation left;lower -IG Pain Management Interventions exercise or physical activity utilized -IG Response to Pain Interventions activity participation with tolerable pain -IG Row Name 07/05/251621 Plan of Care Review Plan of Care Reviewed With patient -IG Progress improving -IG Outcome Evaluation Patient participated well in therapy performing bed mobility and seated balance activities. Patient remains limited by deconditioning/weakness and would cont to benefit from skilled IPPT. -IG Row Name 07/05/25 162 Therapy Assessment/Plan (PT) Patient/Family Therapy Goals Statement (PT) to get better -IG Rehab Potential (PT) fair -IG Criteria for Skilled Interventions Met (PT) yes;meets criteria;skilled treatment is necessary -IG Therapy Frequency (PT) daily -IG Predicted Duration of Therapy Intervention (PT) 10 days -IG Row Name 07/05/25 162 Vital Signs Pre Systolic BP Rehab 145 -IG Pre Treatment Diastolic BP 84 -IG Pretreatment Heart Rate (beats/min) 77 -IG Posttreatment Heart Rate (beats/min) 82 -IG Pre SpO2 (%) 94 -IG Post SpO2 (%) 95 -IG O2 Delivery Post Treatment room air -IG Pre Patient Position Supine -IG Intra Patient Position Sitting -IG Post Patient Position Sitting -IG Row Name 07/05/251621 Positioning and Restraints Pre-Treatment Position in bed -IG Post Treatment Position chair -IG In Chair notified nsg;reclined;call light within reach;encouraged to call for assist;exit alarm on;on mechanical lift sling;waffle cushion;legs elevated -IG User Llanes (r) = Recorded By, (t) = Taken By, (c) = Cosigned By Initials Name Provider Type IG Hayden Matias, PT Physical Therapist Outcome Measures Row Name 07/05/251622 How much help from another person do you currently need... Turning from your back to your side while in flat bed without using bedrails? 3 -IG Moving from lying on back to sitting on the side of a flat bed without bedrails? 3 -IG Moving to and from a bed to a chair (including a wheelchair)? 1 -IG Standing up from a chair using your arms (e.g., wheelchair, bedside chair)? 1 -IG Climbing 3-5 steps with a railing? 1 -IG To walk in hospital room? 1 -IG AM-PAC 6 Clicks Score (PT) 10 -IG Highest Level of Mobility Goal Move to Chair/Commode-4 -IG Row Name 07/05/25 1623 07/05/25 1129 Functional Assessment Outcome Measure Options AM-PAC 6 Clicks Basic Mobility (PT) -IG AM-PAC 6 Clicks Daily Activity (OT)-CHRISTA User Llanes (r) = Recorded By, (t) = Taken By, (c) = Cosigned By Initials Name Provider Type Fátima Castle, OT Occupational Therapist IG Hayden Matias, PT Physical Therapist Physical Therapy Education Title: PT OT HOMICIDE INVESTIGATOR Therapies (In Progress) Topic: Physical Therapy (Done) Point: Mobility training (Done) Learning Progress Summary Patient Acceptance, E, VU by IG at 07/05/2025 1624 Comment: PT POC Acceptance, E, VU,NR by at 06/29/2025 0907 Acceptance, E, VU,NR by NS at 06/26/2025 1618 Point: Home exercise program (Done) Learning Progress Summary Patient Acceptance, E, VU by IG at 07/05/2025 1624 Comment: PT POC Acceptance, E, VU,NR by NS at 06/26/2025 1618 Point: Body mechanics (Done) Learning Progress Summary Patient Acceptance, E, VU by IG at 07/05/2025 1624 Comment: PT POC Acceptance, E, VU,NR by NS at 06/26/2025 1618 Point: Precautions (Done) Learning Progress Summary Patient Acceptance, E, VU by IG at 07/05/2025 1624 Comment: PT POC Acceptance, E, VU,NR by at 06/29/2025 0907 Acceptance, E, VU,NR by NS at 06/26/2025 1618 User Llanes Initials Effective Dates Name Provider Type Discipline CHICHO 02/26/21 - Mirela Hsu, PT Physical Therapist PT ML 01/02/21 - Leonie Thomas Physical Therapist PT IG 04/19/25 - Hayden Matias PT Physical Therapist PT PT Recommendation and Plan Recommended discharge disposition is based on the functional assessment performed by PT/OT/Speech therapy (as applicable) and may not reflect the medical necessity determined by your provider or services covered by an individual patient's insurance plan or patient resource. Therapy Frequency (PT): daily Progress: improving Outcome Evaluation: Patient participated well in therapy performing bed mobility and seated balanceactivities. Patient remains limited by deconditioning/weakness and would cont to benefit from skilled IPPT. Time Calculation: PT Charges Row Name 07/05/25 1624 Time Calculation Start Time 1034 -IG PT Received On 07/05/25 -IG Timed Charges 35259 - PT Therapeutic Activity Minutes 23 -IG Total Minutes Timed Charges Total Minutes 23 -IG Total Minutes 23 -IG User Llanes (r) = Recorded By, (t) = Taken By, (c) = Cosigned By Initials Name Provider Type IG Hayden Matias, PT Physical Therapist Therapy Charges for Today Code Description Service Date Service Provider Modifiers Qty [id number] HC PT THERAPEUTIC ACT EA 15 MIN 07/05/2025 Hayden Matias, PT GP 2 PT G-Codes Outcome Measure Options: AM-PAC 6 Clicks Basic Mobility (PT) AM-PAC 6 Clicks Score (PT): 10 AM-PAC 6 Clicks Score (OT): 13 PT Discharge Summary Anticipated Discharge Disposition (PT): intermediate facility Hayden Matias PT 07/05/2025 * Therapy Progress Report/Re-Cert - Fátima Mora, OT - 07/05/2025 10:32 AM EDT Images from the original note were not included. Patient Name: Trung Pool : 1955 Today's Date: 07/05/2025 Admit Date: 06/25/2025 Visit Dx: ICD-10-CM ICD-9-CM 1. Cellulitis of left lower extremity L03.116 682.6 2. Hematuria, unspecified type R31.9 599.70 3. Urinary tract infection associated with indwelling urethral catheter, initial encounter T83.434J690.64 N39.0 599.0 4. Diarrhea, unspecified type R19.7 787.91 5. PAD (peripheral artery disease) I73.9 443.9 6. Wound infection T14.8XXA 958.3 L08.9 7. Critical limb ischemia of left lower extremity I70.222 440.22 Patient Active Problem List Diagnosis Acute deep [...] traumatic brain injury Possible meningioma Moderate malnutrition Seizure disorder Adrenal insufficiency Dysphagia Pressure injury of buttock, stage 1 Pressure ulcers of skin of multiple topographic sites Cellulitis of left foot Gangrene History of DVT (deep vein thrombosis) Severe sepsis Hx of migraine headaches Coronary artery disease involving [place] coronary artery of [place] heart without angina pectoris Left leg cellulitis Altered mental status PAD (peripheral artery disease) Wound infection Type 2 diabetes mellitus with diabetic peripheral angiopathy without gangrene, without long-term current use of insulin Mixed hyperlipidemia S/P AKA (above knee amputation), right CHARLIE (acute kidney injury) Type 2 diabetes mellitus, with long-term current use of insulin Arteriovenous fistula, acquired Cellulitis Acute UTI (urinary tract infection) Diarrhea of presumed infectious origin Acute on chronic blood loss anemia BPH without obstruction/lower urinary tract symptoms GERD without esophagitis Bilateral inguinal hernia Gastroenteritis due to norovirus Past Medical History: Diagnosis Date Anemia Cellulitis Diabetes mellitus Frequent falls History of DVT (deep vein thrombosis) Hyperlipidemia Hypertension Migraines Myocardial infarction Peripheral neuropathy Pneumonia Spinal stenosis Wears dentures FULL Wears glasses Past Surgical History: Procedure Laterality Date ABOVE KNEE AMPUTATION Right AMPUTATION DIGIT Left 01/28/2024 Procedure: SECOND AND THIRD TOE AMPUTATION LEFT; Surgeon: Cecil Buenrostro Jr., MD; Location: [facility]; Service: Orthopedics; Laterality: Left; ANTERIOR CERVICAL DISCECTOMY W/ FUSION Bilateral 07/17/2020 Procedure: Cervical discectomy anterior with fusion C3-4; Surgeon: Tyree Tan MD; Location: [facility]; Service: Neurosurgery; Laterality: Bilateral; AORTOGRAM N/A 01/26/2024 Procedure: ABDOMINAL AORTIC ANGIOGRAM, LLE ANGIOGRAM, LEFT ANTERIOR TIBIAL ATHERECTOMY, LEFT ANTERIOR TIBIAL ANGIOPLASTY; Surgeon: Archie Olvera MD; Location: [facility]; Service: Vascular; Laterality: N/A; CONTRAST: 50 ML, FT: 2 MIN 54 SEC, DOSE: 66 MGY. AORTOGRAM Left 07/03/2025 Procedure: ARTERIOGRAM LOWER EXTREMITY; Surgeon: Vaughn Hollingsworth DO; Location: [facility]; Service: Vascular; Laterality: Left; FT-6MINS 24SEC 140 MGY CONTRAST -15ML BACK SURGERY FOR DISC HERNIATION CARDIAC CATHETERIZATION CARDIAC CATHETERIZATION N/A 09/04/2024 Procedure: Peripheral angiography - Left lower extremity angio - Right femoral access; Surgeon: Jared Marcano MD; Location: [facility] LOC[facility]; Service: Peripheral Vascular; Laterality: N/A; CORONARY ANGIOPLASTY WITH STENT PLACEMENT stent x 1 INCISION AND DRAINAGE FOOT Left 06/17/2023 Procedure: LEFT FOOT DEBRIDEMENT WOUND VACUUM ASSISTED CLOSURE; Surgeon: Cecil Buenrostro Jr., MD;Location: [facility] OR; Service: Orthopedics; Laterality: Left; INCISION AND DRAINAGE LEG Left 07/25/2023 Procedure: INCISION AND DRAINAGE HEEL, WOUND VAC; Surgeon: Cecil Buenrostro Jr., MD; Location: [facility]; Service: Orthopedics; Laterality: Left; INCISION AND DRAINAGE LEG Left 07/03/2025 Procedure: DEBRIDEMENT WOUND, PLACEMENT OF WOUND VAC; Surgeon: Vaughn Hollingsworth DO; Location: [facility]; Service: Vascular; Laterality: Left; INTERVENTIONAL RADIOLOGY PROCEDURE N/A 05/02/2019 Procedure: IVC FILTER PLACEMENT; Surgeon: Pedro Zapien MD; Location: [facility]; Service: Interventional Radiology INTERVENTIONAL RADIOLOGY PROCEDURE Left 09/07/2024 Procedure: LEFT peroneal arteriovenous fistula embolization - Right femoral access; Surgeon: Jared Marcano MD; Location: [facility] LOCATION; Service: Cardiovascular; Laterality: Left; Please coordinate with Gautam Patel ([facility]) [phone] who will bring coils LUMBAR DISCECTOMY N/A 05/03/2019 Procedure: THORACIC LAMINECTOMY T11-12; Surgeon: Tyree Tan MD; Location: [facility]; Service: Neurosurgery General Information Row Name 07/05/25 1114 OT Time and Intention Subjective Information no complaints -CHRISTA Document Type progress note/recertification -CHRISTA Mode of Treatment occupational therapy;co-treatment -CHRISTA Patient Effort good -CHRISTA Symptoms Noted During/After Treatment none -CHRISTA Row Name 07/05/25 1114 General Information Patient Profile Reviewed yes -CHRISTA Existing Precautions/Restrictions fall;other (see comments) 07/03 transmetatarsal debridement and angiogram LLE with wound vac -CHRISTA Barriers to Rehab medically complex;previous functional deficit;physical barrier -CHRISTA Row Name 07/05/25 1114 Cognition Orientation Status (Cognition) oriented x 3 -CHRISTA Row Name 07/05/25 1114 Safety Issues/Impairments Affecting Functional Mobility Impairments Affecting Function (Mobility) balance;endurance/activity tolerance;pain;strength;sensation/sensory awareness;range of motion (ROM) -CHRISTA User Llanes (r) = Recorded By, (t) = Taken By, (c) = Cosigned By Initials Name Provider Type Fátima Castle, OT Occupational Therapist Mobility/ADL's Row Name 07/05/25 1118 Bed Mobility Rolling Left Osteen (Bed Mobility) standby assist -CHRISTA Rolling Right Osteen (Bed Mobility) standby assist -CHRISTA Assistive Device (Bed Mobility) bed rails -CHRISTA Comment, (Bed Mobility) pt. was able to roll quickly without assist to place sling today -CHRISTA Row Name 07/05/25 111 Transfers Transfers bed-chair transfer -CHRISTA Row Name 07/05/25 1118 Bed-Chair Transfer Bed-Chair Osteen (Transfers) dependent (less than 25% patient effort);2 person assist -CHRISTA Assistive Device (Bed-Chair Transfers) lift device -CHRISTA User Llanes (r) = Recorded By, (t) = Taken By, (c) = Cosigned By Initials Name Provider Type Fátima Castle, OT Occupational Therapist Obj/Interventions Row Name 07/05/25 111 Sensory Assessment (Somatosensory) Sensory Assessment (Somatosensory) UE sensation intact -CHRISTA Sensory Assessment impaired LE sensation -CHRISTA Row Name 07/05/25 1119 Range of Motion Comprehensive General Range of Motion upper extremity range of motion deficits identified -CHRISTA Comment, General Range of Motion L shoulder grossly 70 degrees flexion and abduction -CHRISTA Row Name 07/05/25 111 Strength Comprehensive (MMT) Comment, General Manual Muscle Testing (MMT) Assessment BUE grossly 4 to 4+/5 -CHRISTA Row Name 07/05/25 1119 Balance Static Sitting Balance standby assist -CHRISTA Dynamic Sitting Balance minimal assist SBA with intermittent CGA to min A with posterior LOB in recliner -CHRISTA Position, Sitting Balance unsupported;sitting in chair -CHRISTA Balance Interventions UE activity with balance activity -CHRISTA Comment, Balance with min to mod resistance given multiple directions, reaching up and across and with elbow F/E pt. was able to maintain balance with SBA to min A -CHRISTA User Llanes (r) = Recorded By, (t) = Taken By, (c) = Cosigned By Initials Name Provider Type Fátima Castle, OT Occupational Therapist Goals/Plan Row Name 07/05/251126 Bed Mobility Goal 1 (OT) Activity/Assistive Device (Bed Mobility Goal 1, OT) rolling to left;rolling to right -CHRISTA Osteen Level/Cues Needed (Bed Mobility Goal 1, OT) minimum assist (75% or more patient effort);verbal cues required;nonverbal cues (demo/gesture) required -CHRISTA Time Frame (Bed Mobility Goal 1, OT) lobsterman goal (LTG);10 days -CHRISTA Progress/Outcomes (Bed Mobility Goal 1, OT) goal met -CHRISTA Row Name 07/05/251126 Transfer Goal 1 (OT) Activity/Assistive Device (Transfer Goal 1, OT) [id number] lateral -CHRISTA Osteen Level/Cues Needed (Transfer Goal 1, OT) moderate assist (50-74% patient effort) -CHRISTA Time Frame (Transfer Goal 1, OT) lobsterman goal (LTG);10 days -CHRISTA Progress/Outcome (Transfer Goal 1, OT) goal revised this date;goal ongoing -CHRISTA Row Name 07/05/251126 Bathing Goal 1 (OT) Activity/Device (Bathing Goal 1, OT) upper body bathing -CHRISTA Osteen Level/Cues Needed (Bathing Goal 1, OT) minimum assist (75% or more patient effort);set-up required -CHRISTA Time Frame (Bathing Goal 1, OT) short term goal (STG);5 days -CHRISTA Progress/Outcomes (Bathing Goal 1, OT) new goal -CHRISTA Row Name 07/05/251126 Toileting Goal 1 (OT) Progress/Outcome (Toileting Goal 1, OT) goal no longer appropriate -CHRISTA Row Name 07/05/251126 Strength Goal 1 (OT) Strength Goal 1 (OT) Pt. will completed UE and core TE with progressive reps and resistance to support ADL and transfer independence. -CHRISTA Time Frame (Strength Goal 1, OT) lobsterman goal (LTG);10 days -CHRISTA Progress/Outcome (Strength Goal 1, OT) new goal -CHRISTA Row Name 07/05/25 1127 Therapy Assessment/Plan (OT) Planned Therapy Interventions (OT) activity tolerance training;adaptive equipment training;BADL retraining;functional balance retraining;occupation/activity based interventions;patient/caregiver educa tion/training;strengthening exercise;transfer/mobility retraining;ROM/therapeutic exercise -CHRISTA User Llanes (r) = Recorded By, (t) = Taken By, (c) = Cosigned By Initials Name Provider Type Fátima Castle, OT Occupational Therapist Clinical Impression Row Name 07/05/25 112 Pain Assessment Pretreatment Pain Rating 6/10 WBFS pain 2/10 -CHRISTA Posttreatment Pain Rating 6/10 -CHRISTA Pain Location extremity;buttock -CHRISTA Pain Side/Orientation left;lower -CHRISTA Pain Management Interventions positioning techniques utilized;premedicated for activity;exercise orphysical activity utilized -CHRISTA Response to Pain Interventions no change per patient report;activity participation with tolerable pain -CHRISTA Row Name 07/05/25 112 Plan of Care Review Plan of Care Reviewed With patient -CHRISTA Progress improving -CHRISTA Outcome Evaluation Patient demonstrated improved rolling ability this date and improving sitting balance. Pt. with new LLE debridement and wound vac LLE continueing to limit progress with bed to chair transfers without sling use. Pt. continues with generalized weakness proximal UE> than distal UE. Pt. continues with some LOB to rear and fear of falling forward with sitting balance. Pt. remainsappropriate for skilled OT services to addres deficit areas of strength, balance, endurance and ROMto promote return to prior higher independence level. - Row Name 07/05/25 112 Therapy Assessment/Plan (OT) Patient/Family Therapy Goal Statement (OT) return to PLOF -CHRISTA Rehab Potential (OT) fair -CHRISTA Criteria for Skilled Therapeutic Interventions Met (OT) yes;skilled treatment is necessary -CHRISTA Therapy Frequency (OT) daily -CHRISTA Predicted Duration of Therapy Intervention (OT) 10 days -CHRISTA Row Name 07/05/25 112 Therapy Plan Review/Discharge Plan (OT) Anticipated Discharge Disposition (OT) intermediate facility - Row Name 07/05/25 112 Vital Signs Pre Systolic BP Rehab 145 -CHRISTA Pre Treatment Diastolic BP 84 -CHRISTA Pretreatment Heart Rate (beats/min) 77 -CHRISTA Posttreatment Heart Rate (beats/min) 82 -CHRISTA Pre SpO2 (%) 94 -CHRISTA O2 Delivery Pre Treatment room air -CHRISTA O2 Delivery Intra Treatment room air -CHRISTA Post SpO2 (%) 95 -CHRISTA O2 Delivery Post Treatment room air -CHRISTA Pre Patient Position Supine -CHRISTA Intra Patient Position Sitting -CHRISTA Post Patient Position Sitting -CHRISTA Row Name 07/05/25 1122 Positioning and Restraints Pre-Treatment Position in bed -CHRISTA Post Treatment Position chair -CHRISTA In Chair notified nsg;reclined;call light within reach;encouraged to call for assist;exit alarm on;waffle cushion;LLE elevated;on mechanical lift sling -CHRISTA User Llanes (r) = Recorded By, (t) = Taken By, (c) = Cosigned By Initials Name Provider Type Fátima Castle OT Occupational Therapist Outcome Measures Row Name 07/05/25 1129 How much help from another is currently needed... Putting on and taking off regular lower body clothing? 1 -CHRISTA Bathing (including washing, rinsing, and drying) 2 -CHRISTA Toileting (which includes using toilet bed chavis or urinal) 1 -CHRISTA Putting on and taking off regular upper body clothing 2 -CHRISTA Taking care of personal grooming (such as brushing teeth) 3 -CHRISTA Eating meals 4 -CHRISTA AM-PAC 6 Clicks Score (OT) 13 - Row Name 07/05/25 1129 Functional Assessment Outcome Measure Options AM-PAC 6 Clicks Daily Activity (OT) -CHRISTA User Llanes (r) = Recorded By, (t) = Taken By, (c) = Cosigned By Initials Name Provider Type Fátima Castle OT Occupational Therapist Occupational Therapy Education Title: PT OT HOMICIDE INVESTIGATOR Therapies (In Progress) Topic: Occupational Therapy (In Progress) Point: ADL training (Done) Learning Progress Summary Patient Acceptance, E,D, VU,NR by CHRISTA at 07/05/2025 1129 Comment: benefit of core TE to assist with balance Point: Home exercise program (Done) Learning Progress Summary Patient Acceptance, E,D, VU,NR by at 07/05/2025 1129 Comment: benefit of core TE to assist with balance User Llanes Initials Effective Dates Name Provider Type Discipline CHRISTA 03/23/23 - Fátima Mora OT Occupational Therapist OT OT Recommendation and Plan Recommended discharge disposition is based on the functional assessment performed by PT/OT/Speech therapy (as applicable) and may not reflect the medical necessity determined by your provider or services covered by an individual patient's insurance plan or patient resource. Planned Therapy Interventions (OT): activity tolerance training, adaptive equipment training, BADL retraining, functional balance retraining, occupation/activity based interventions, patient/caregiver education/training, strengthening exercise, transfer/mobility retraining, ROM/therapeutic exercise Therapy Frequency (OT): daily Plan of Care Review Plan of Care Reviewed With: patient Progress: improving Outcome Evaluation: Patient demonstrated improved rolling ability this date and improving sitting balance. Pt. with new LLE debridement and wound vac LLE continueing to limit progress with bed to chair transfers without sling use. Pt. continues with generalized weakness proximal UE> than distal UE. Pt. continues with some LOB to rear and fear of falling forward with sitting balance. Pt. remains appropriate for skilled OT services to addres deficit areas of strength, balance, endurance and ROM to promote return to prior higher independence level. Time Calculation: Time Calculation- OT Row Name 07/05/25 1130 Time Calculation- OT OT Start Time 1032 -CHRISTA OT Received On 07/05/25 -CHRISTA OT Goal Re-Cert Due Date 07/15/25 -CHRISTA Timed Charges 99156 - OT Therapeutic Exercise Minutes 10 -CHRISTA 11162 - OT Therapeutic Activity Minutes 7 -CHRISTA Total Minutes Timed Charges Total Minutes 17 -CHRISTA Total Minutes 17 -CHRISTA User Llanes (r) = Recorded By, (t) = Taken By, (c) = Cosigned By Initials Name Provider Type Fátima Castle OT Occupational Therapist Therapy Charges for Today Code Description Service Date Service Provider Modifiers Qty [id number] OT THER PROC EA 15 MIN 07/05/2025 Fátima Mora OT GO 1 Fátima Mora OT 07/05/2025 * Case Management/Social Work - Monalisa Reilly RN - 07/04/2025 11:17 AM EDT Continued Stay Note COLLIN Fernando Patient Name: Trung Pool Today's Date: 07/04/2025 Admit Date: 06/25/2025 Plan: To be determined Discharge Plan Row Name 07/04/25 1116 Plan Plan To be determined Plan Comments Discussed Mr Pool in MDR. Mr Pool went down for a wound debridement surgery yesterday, and has remained nonresponsive since. He has had an episode of this in the past. Case management will continue to follow. Final Discharge Disposition Code 06 - home with home health care Discharge Codes No documentation. Expected Discharge Date and Time Expected Discharge Date Expected Discharge Time Jun 27, 2025 Monalisa Reilly RN * Therapy Re-Evaluation - Duglas Mayes PT - 07/04/2025 10:59 AM EDT Acute Care - Wound/Debridement Initial Evaluation [facility] Patient Name: Trung Pool : 1955 Today's Date: 07/04/2025 Admit Date: 06/25/2025 Visit Dx: ICD-10-CM ICD-9-CM 1. Cellulitis of left lower extremity L03.116 682.6 2. Hematuria, unspecified type R31.9 599.70 3. Urinary tract infection associated with indwelling urethral catheter, initial encounter T83.911L462.64 N39.0 599.0 4. Diarrhea, unspecified type R19.7 787.91 5. PAD (peripheral artery disease) I73.9 443.9 6. Wound infection T14.8XXA 958.3 L08.9 7. Critical limb ischemia of left lower extremity I70.222 440.22 Patient Active Problem List Diagnosis Acute deep [...] traumatic brain injury Possible meningioma Moderate malnutrition Seizure disorder Adrenal insufficiency Dysphagia Pressure injury of buttock, stage 1 Pressure ulcers of skin of multiple topographic sites Cellulitis of left foot Gangrene History of DVT (deep vein thrombosis) Severe sepsis Hx of migraine headaches Coronary artery disease involving [place] coronary artery of [place] heart without angina pectoris Left leg cellulitis Altered mental status PAD (peripheral artery disease) Wound infection Type 2 diabetes mellitus with diabetic peripheral angiopathy without gangrene, without long-term current use of insulin Mixed hyperlipidemia S/P AKA (above knee amputation), right CHARLIE (acute kidney injury) Type 2 diabetes mellitus, with long-term current use of insulin Arteriovenous fistula, acquired Cellulitis Acute UTI (urinary tract infection) Diarrhea of presumed infectious origin Acute on chronic blood loss anemia BPH without obstruction/lower urinary tract symptoms GERD without esophagitis Bilateral inguinal hernia Gastroenteritis due to norovirus Past Medical History: Diagnosis Date Anemia Cellulitis Diabetes mellitus Frequent falls History of DVT (deep vein thrombosis) Hyperlipidemia Hypertension Migraines Myocardial infarction Peripheral neuropathy Pneumonia Spinal stenosis Wears dentures FULL Wears glasses Past Surgical History: Procedure Laterality Date ABOVE KNEE AMPUTATION Right AMPUTATION DIGIT Left 01/28/2024 Procedure: SECOND AND THIRD TOE AMPUTATION LEFT; Surgeon: Cecil Buenrostro Jr., MD; Location: [facility]; Service: Orthopedics; Laterality: Left; ANTERIOR CERVICAL DISCECTOMY W/ FUSION Bilateral 07/17/2020 Procedure: Cervical discectomy anterior with fusion C3-4; Surgeon: Tyree Tan MD; Location: [facility]; Service: Neurosurgery; Laterality: Bilateral; AORTOGRAM N/A 01/26/2024 Procedure: ABDOMINAL AORTIC ANGIOGRAM, LLE ANGIOGRAM, LEFT ANTERIOR TIBIAL ATHERECTOMY, LEFT ANTERIOR TIBIAL ANGIOPLASTY; Surgeon: Archie Olvera MD; Location: [facility]; Service: Vascular; Laterality: N/A; CONTRAST: 50 ML, FT: 2 MIN 54 SEC, DOSE: 66 MGY. AORTOGRAM Left 07/03/2025 Procedure: ARTERIOGRAM LOWER EXTREMITY; Surgeon: Vaughn Hollingsworth DO; Location: [facility]; Service: Vascular; Laterality: Left; FT-6MINS 24SEC 140 MGY CONTRAST -15ML BACK SURGERY FOR DISC HERNIATION CARDIAC CATHETERIZATION CARDIAC CATHETERIZATION N/A 09/04/2024 Procedure: Peripheral angiography - Left lower extremity angio - Right femoral access; Surgeon: Jared Marcano MD; Location: [facility]; Service: Peripheral Vascular; Laterality: [...] Location: [facility]; Service: Orthopedics; Laterality: Left; INCISION AND DRAINAGE LEG Left 07/03/2025 Procedure: DEBRIDEMENT WOUND, PLACEMENT OF WOUND VAC; Surgeon: Vaughn Hollingsworth DO; Location: [facility]; Service: Vascular; Laterality: Left; INTERVENTIONAL RADIOLOGY PROCEDURE N/A 05/02/2019 Procedure: IVC FILTER PLACEMENT; Surgeon: Pedro Zapien MD; Location: [facility]; Service: Interventional Radiology INTERVENTIONAL RADIOLOGY PROCEDURE Left 09/07/2024 Procedure: LEFT peroneal arteriovenous fistula embolization - Right femoral access; Surgeon: Jared Marcano MD; Location: [facility]; Service: Cardiovascular; Laterality: Left; Please coordinate with Gautam Patel ([facility] [phone] who will bring coils LUMBAR DISCECTOMY N/A 05/03/2019 Procedure: THORACIC LAMINECTOMY T11-12; Surgeon: Tyree Tan MD; Location: [facility]; Service: Neurosurgery Wound 01/28/24 Left anterior second toe Incision (Active) Dressing Appearance intact;dry 07/04/25 1000 Closure Unable to assess 07/03/251758 Base unable to visualize 07/04/25 1000 Dressing Care dressing applied 07/03/25 1611 Wound Output (mL) 20 07/04/25 1000 Wound Left posterior heel (Active) Closure Open to air 07/03/252052 Wound 06/26/25 0150 Left medial coccyx Pressure Injury (Active) Dressing Appearance dry;intact 07/03/252052 Wound 06/26/25 0150 Left posterior greater trochanter Pressure Injury (Active) Dressing Appearance dry;intact 07/03/252052 Wound 06/26/25 0150 Right posterior greater trochanter Pressure Injury (Active) Dressing Appearance dry;intact 07/03/252052 Wound 07/03/25 1535 Right anterior groin Traumatic Skin Tear (Active) Base moist;clean;bleeding 07/03/251758 NPWT (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 Wound Therapy) 07/03/25 LEFT FOOT (Active) Therapy Setting continuous therapy 07/04/25 1000 Dressing foam, black;transparent dressing 07/03/252052 Contact Layer silicone 07/03/25 164 Pressure Setting 125 mmHg 07/04/25 1000 WOUND DEBRIDEMENT PT Assessment (Last 12 Hours) PT Evaluation and Treatment Row Name 07/04/25 1000 Physical Therapy Time and Intention Subjective Information complains of;weakness;fatigue - Document Type evaluation;therapy note (daily note);wound care - Mode of Treatment individual therapy;physical therapy - Row Name 07/04/25 1000 General Information Patient Profile Reviewed yes - Patient Observations cooperative;agree to therapy;decreased LOC - Pertinent History of Current Functional Problem open wound to foot, s/p surgical debridement. - Risks Reviewed patient:;increased discomfort - Benefits Reviewed patient:;improve skin integrity - Barriers to Rehab medically complex;previous functional deficit;physical barrier - Row Name 07/04/25 1000 Pain Pain Side/Orientation left - Additional Documentation Pain Scale: FACES Pre/Post-Treatment (Group) - Row Name 07/04/25 1000 Pain Scale: FACES Pre/Post-Treatment Pain: FACES Scale, Pretreatment 4-->hurts little more - Posttreatment Pain Rating 4-->hurts little more - Row Name 07/04/25 1000 Cognition Affect/Mental Status (Cognition) low arousal/lethargic - Row Name Wound 06/26/25 0150 Left medial coccyx Pressure Injury Wound - Properties Group Placement Date: 06/26/25 Placement Time: 0150 -EW Present on Original Admission: Y -EW Side: Left -EW Orientation: medial -EW Location: coccyx -EW Primary Wound Type: Pressure Inj -EW Retired Wound - Properties Group Placement Date: 06/26/25 - Placement Time: 0150 -EW Present on Original Admission: Y -EW Side: Left -EW Orientation: medial -EW Location: coccyx -EW Retired Wound - Properties Group Placement Date: 06/26/25 - Placement Time: 0150 -EW Present on Original Admission: Y -EW Side: Left -EW Orientation: medial -EW Location: coccyx -EW Retired Wound - Properties Group Date first assessed: 06/26/25 - Time first assessed: 0150 -EW Present on Original Admission: Y -EW Side: Left -EW Location: coccyx -EW Row Name Wound 06/26/25 0150 Left posterior greater trochanter Pressure Injury Wound - Properties Group Placement Date: 06/26/25 Placement Time: 0150 -EW Present on Original Admission: Y -EW Side: Left -EW Orientation: posterior -EW Location: greater trochanter -EW Primary Wound Type: Pressure Inj -EW Retired Wound - Properties Group Placement Date: 06/26/25 Placement Time: 0150 -EW Present on Original Admission: Y -EW Side: Left -EW Orientation: posterior -EW Location: greater trochanter -EW Retired Wound - Properties Group Placement Date: 06/26/25 Placement Time: 0150 -EW Present on Original Admission: Y -EW Side: Left -EW Orientation: posterior -EW Location: greater trochanter -EW Retired Wound - Properties Group Date first assessed: 06/26/25 Time first assessed: 0150 -EW Present on Original Admission: Y -EW Side: Left -EW Location: greater trochanter -EW Row Name Wound 06/26/25 0150 Right posterior greater trochanter Pressure Injury Wound - Properties Group Placement Date: 06/26/25 Placement Time: 0150 -EW Present on Original Admission: Y -EW Side: Right -EW Orientation: posterior -EW Location: greater trochanter -EW PrimaryWound Type: Pressure Inj -EW Retired Wound - Properties Group Placement Date: 06/26/25 Placement Time: 0150 -EW Present on Original Admission: Y -EW Side: Right -EW Orientation: posterior -EW Location: greater trochanter -EW Retired Wound - Properties Group Placement Date: 06/26/25 Placement Time: 0150 -EW Present on Original Admission: Y -EW Side: Right -EW Orientation: posterior -EW Location: greater trochanter -EW Retired Wound - Properties Group Date first assessed: 06/26/25 Time first assessed: 0150 -EW Present on Original Admission: Y -EW Side: Right -EW Location: greater trochanter -EW Row Name Wound Left posterior heel Wound - Properties Group Present on Original Admission: Y -MR Side: Left -MR Orientation: posterior-MR Location: heel -MR Primary Wound Type: Pressure inj -MR Retired Wound - Properties Group Present on Original Admission: Y -MR Side: Left -MR Orientation: posterior -MR Location: heel -MR Primary Wound Type: Pressure inj -MR Retired Wound - Properties Group Present on Original Admission: Y -MR Side: Left -MR Orientation: posterior -MR Location: heel -MR Primary Wound Type: Pressure inj -MR Retired Wound - Properties Group Present on Original Admission: Y -MR Side: Left -MR Location: heel-MR Primary Wound Type: Pressure inj -MR Row Name 07/04/25 1000 Wound 01/28/24 Left anterior second toe Incision Wound - Properties Group Placement Date: 01/28/24 -MJ Present on Original Admission: N -MJ Side: Left -MJ Orientation: anterior -MJ Location: second toe - MJ Primary Wound Type: Incision -MJ Dressing Appearance intact;dry -MF Base unable to visualize -MF Wound Output (mL) 20 -MF Retired Wound - Properties Group Placement Date: 01/28/24 -MJ Present on Original Admission: N -MJ Side: Left -MJ Orientation: anterior -MJ Location: second toe -MJ Primary Wound Type: Incision -MJ Retired Wound - Properties Group Placement Date: 01/28/24 -MJ Present on Original Admission: N -MJ Side: Left -MJ Orientation: anterior -MJ Location: second toe -MJ Primary Wound Type: Incision -MJ Retired Wound - Properties Group Date first assessed: 01/28/24 -MJ Present on Original Admission: N-MJ Side: Left -MJ Location: second toe -MJ Primary Wound Type: Incision -MJ Row Name Wound 01/15/241940 Left lower leg Other (comment) Wound - Properties Group Placement Date: 01/15/24 -MM Placement Time: 1940 -MM Present on Original Admission: Y -MM Side: Left -MM Orientation: lower -MM Location: leg -MM Primary Wound Type: Other -MM, cellulitis Retired Wound - Properties Group Placement Date: 01/15/24 -MM Placement Time: 1940 -MM Present on Original Admission: Y -MM Side: Left -MM Orientation: lower -MM Location: leg -MM Primary Wound Type:Other -MM, cellulitis Retired Wound - Properties Group Placement Date: 01/15/24 -MM Placement Time: 1940 -MM Present on Original Admission: Y -MM Side: Left -MM Orientation: lower -MM Location: leg -MM Primary Wound Type:Other -MM, cellulitis Retired Wound - Properties Group Date first assessed: 01/15/24 -MM Time first assessed: 1941 -MM Present on Original Admission: Y -MM Side: Left -MM Location: leg -MM Primary Wound Type: Other -MM, cellulitis Row Name Wound 07/03/25 Right anterior groin Surgical Puncture Wound - Properties Group Placement Date: 07/03/25 -RS Present on Original Admission: N -RS Side: Right -RS Orientation: anterior -RS Location: groin -RS Primary Wound Type: Surgical -RS Secondary Wound Type - Surgical: Puncture -RS Retired Wound - Properties Group Placement Date: 07/03/25 -RS Present on Original Admission: N -RS Side: Right -RS Orientation: anterior -RS Location: groin -RS Retired Wound - Properties Group Placement Date: 07/03/25 -RS Present on Original Admission: N -RS Side: Right -RS Orientation: anterior -RS Location: groin -RS Retired Wound - Properties Group Date first assessed: 07/03/25 -RS Present on Original Admission: N-RS Side: Right -RS Location: groin -RS Row Name Wound 07/03/25 1535 Right anterior groin Traumatic Skin Tear Wound - Properties Group Placement Date: 07/03/25 -RS Placement Time: 1535 -RS Side: Right -RS Orientation: anterior -RS Location: groin -RS Primary Wound Type: Traumatic -RS Secondary Wound Type - Traumatic: Skin Tear -RS Retired Wound - Properties Group Placement Date: 07/03/25 -RS Placement Time: 1535 -RS Side: Right -RS Orientation: anterior -RS Location: groin -RS Retired Wound - Properties Group Placement Date: 07/03/25 -RS Placement Time: 1535 -RS Side: Right -RS Orientation: anterior -RS Location: groin -RS Retired Wound - Properties Group Date first assessed: 07/03/25 -RS Time first assessed: 1535 -RS Side: Right -RS Location: groin -RS Row Name 07/04/25 1000 NPWT (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 Wound Therapy) 07/03/25 LEFT FOOT NPWT (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 Wound Therapy) - Properties Group Placement Date: 07/03/25 -RS Location: LEFT FOOT -RS Additional Comments: PER MD CLARKE REYNOSO Therapy Setting continuous therapy - Pressure Setting 125 mmHg - 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) - Properties Group Placement Date: 07/03/25 -RS Location: LEFT FOOT -RS Additional Comments: PER MD CLARKE REYNOSO [place] NPWT (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 Wound Therapy) - Properties Group Placement Date: 07/03/25 -RS Location: LEFT FOOT -RS Additional Comments: PER MD CLARKE REYNOSO 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) - Properties Group Placement Date: 07/03/25 -RS Location: LEFT FOOT -RS Additional Comments: PER MD CLARKE REYNOSO Row Name 07/04/25 1000 Coping Observed Emotional State cooperative - Verbalized Emotional State acceptance pt confused - Trust Relationship/Rapport care explained - Row Name 07/04/25 1000 Plan of Care Review Plan of Care Reviewed With patient - Outcome Evaluation Pt presents with open wound to foot s/p surgical debridement and wound vac placement. PT will f/u with wound vac change in 1-2 days. - Row Name 07/04/25 1000 Positioning and Restraints Pre-Treatment Position in bed - Post Treatment Position bed - In Bed supine;call light within reach - Row Name 07/04/25 1000 Therapy Assessment/Plan (PT) Patient/Family Therapy Goals Statement (PT) wound healing. - PT Diagnosis (PT) Foot wound s/p surgical debridement - Rehab Potential (PT) fair - Criteria for Skilled Interventions Met (PT) yes;meets criteria;skilled treatment is necessary - Predicted Duration of Therapy Intervention (PT) 10 days - Row Name 07/04/25 1000 Therapy Plan Review/Discharge Plan (PT) Therapy Plan Review (PT) evaluation/treatment results reviewed;care plan/treatment goals reviewed;risks/benefits reviewed;current/potential barriers reviewed;participants voiced agreement with care plan;participants included;patient - Row Name 07/04/25 1000 Physical Therapy Goals Wound Management Goal Selection (PT) wound management, PT goal 1;wound management, PT goal 2 - Row Name 07/04/25 1000 Wound Management Goal 1 (PT) Wound Management Goal (Wound Goal 1, PT) Decrease wound size by 10% as evidence of wound healing. - Time Frame (Wound Goal 1, PT) 1 week - Row Name 07/04/25 1000 Wound Management Goal 2 (PT) Wound Management Goal (Wound Goal 2, PT) Decrease wound size by 15% as evidence of wound healing. - Time Frame (Wound Goal 2, PT) 2 weeks - User Llanes (r) = Recorded By, (t) = Taken By, (c) = Cosigned By Initials Name Provider Type Duglas Mayes, PT Physical Therapist MR Charles Margarita Tierney, RN Registered Nurse Kristan Giordano, RN Registered Nurse Henrietta Blakely RN Registered Nurse Mary Mayes, RN Registered Nurse Alessandra Whitaker, JESSEE Registered Nurse Physical Therapy Education Title: PT OT HOMICIDE INVESTIGATOR Therapies (In Progress) Topic: Physical Therapy (Done) Point: Mobility training (Done) Learning Progress Summary Patient Acceptance, E, VU,NR by ML at 06/29/2025 0907 Acceptance, E, VU,NR by NS at 06/26/20251617 Point: Home exercise program (Done) Learning Progress Summary Patient Acceptance, E, VU,NR by NS at 06/26/20251617 Point: Body mechanics (Done) Learning Progress Summary Patient Acceptance, E, VU,NR by NS at 06/26/20251617 Point: Precautions (Done) Learning Progress Summary Patient Acceptance, E, VU,NR by ML at 06/29/2025 09 Acceptance, E, VU,NR by NS at 06/26/20251617 User Llanes Initials Effective Dates Name Provider Type Discipline NS 02/26/21 - Mirela Hsu, MARY Physical Therapist PT 01/02/21 - Leonie Thomas Physical Therapist PT Recommendation and Plan Recommended discharge disposition is based on the functional assessment performed by PT/OT/Speech therapy (as applicable) and may not reflect the medical necessity determined by your provider or services covered by an individual patient's insurance plan or patient resource. Anticipated Discharge Disposition (PT): intermediate facility Planned Therapy Interventions (PT): wound care, patient/family education Therapy Frequency (PT): daily Plan of Care Reviewed With: patient Outcome Evaluation: Pt presents with open wound to foot s/p surgical debridement and wound vac placement. PT will f/u with wound vac change in 1-2 days. Plan of Care Reviewed With: patient Time Calculation PT Charges Row Name 07/04/25 1000 Time Calculation Start Time 1000 -MF PT Goal Re-Cert Due Date 07/06/25 -MF Untimed Charges PT Eval/Re-eval Minutes 25 -MF Wound Care 64337 Neg Press (DME) wound TO 50 sqcm -MF 52029-Lai Pressure wound to 50 sqcm 40 -MF Total Minutes Untimed Charges Total Minutes 65 -MF Total Minutes 65 -MF User Llanes (r) = Recorded By, (t) = Taken By, (c) = Cosigned By Initials Name Provider Type Duglas Pathak, PT Physical Therapist PT G-Codes Outcome Measure Options: AM-PAC 6 Clicks Daily Activity (OT) AM-PAC 6 Clicks Score (PT): 6 AM-PAC 6 Clicks Score (OT): 13 Duglas Mayes, PT 07/04/2025 * Significant Note - Francisca Franco MD - 07/03/2025 8:56 PM EDT Called to assess patient due to seizure-like activity in PACU and decreased level of consciousness.He had received 2mg IV ativan prior to my assessment. 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 An ABG was drawn which did not show any significant abnormalities and all vital signs were normal in the PACU. Blood glucose was 142. I reviewed neurology notes, imaging, and EEGs from prior stays. This episode appears similar to his previous non-epileptic spells which were captured on EEG with no correlate--described as left wrist shaking/jerking and unresponsiveness. The recommendation at that time was not to change antiseizure medications or treat with benzodiazepines. Given his well documented history of similar episodes and consistent neurology recommendations not to change seizure medication or treat with benzodiazepines, I feel [facility] We did obtain a CT head prior to transfer to the floor to be sure there are no significant acute abnormalities given the prolonged period of somnolence. We will not treat with Keppra as this has caused psychosis in the past and is listed as an allergy due to that. * Case Management/Social Work - Monalisa Reilly RN - 07/02/2025 2:22 PM EDT Continued Stay Note [facility] Patient Name: Trung Pool Today's Date: 07/02/2025 Admit Date: 06/25/2025 Plan: Home with home health Discharge Plan Row Name 07/02/25 1420 Plan Plan Home with home health Patient/Family in Agreement with Plan yes Plan Comments Discussed Mr Pool in MDR. Mr Pool will have a debridement surgery for his wound either tomorrow or Wednesday. His discharge plan remains to return home with home health. Case managementwill continue to follow. Final Discharge Disposition Code 06 - home with home health care Discharge Codes No documentation. Expected Discharge Date and Time Expected Discharge Date Expected Discharge Time Jun 27, 2025 Monalisa Reilly RN * Case Management/Social Work - Monalisa Reilly RN - 06/29/2025 3:57 PM EDT Continued Stay Note [facility] Patient Name: Trung Pool Today's Date: 06/29/2025 Admit Date: 06/25/2025 Plan: Home, [facility] home health Discharge Plan Row Name 06/29/25 1556 Plan Plan Home, [facility] health Plan Comments Discussed Mr Pool in MDR. Mr Pool is not medically ready for discharge and will remain in the hospital over the weekend. PT and OT have worked with Mr Pool again and recommend SNF. Mr Pool has refused SNF, and states that he wants to go home with home health. Case management will follow up on Wednesday. Final Discharge Disposition Code 06 - home with home health care Discharge Codes No documentation. Expected Discharge Date and Time Expected Discharge Date Expected Discharge Time Jun 27, 2025 Monalisa Reilly RN * Therapy Treatment Note - Leonie Thomas - 06/29/2025 8:27 AM EDT Patient Name: Trung Pool : 1955 Today's Date: 06/29/2025 Admit Date: 06/25/2025 Visit Dx: ICD-10-CM ICD-9-CM 1. Cellulitis of left lower extremity L03.116 682.6 2. Hematuria, unspecified type R31.9 599.70 3. Urinary tract infection associated with indwelling urethral catheter, initial encounter T83.164M770.64 N39.0 599.0 4. Diarrhea, unspecified type R19.7 787.91 5. PAD (peripheral artery disease) I73.9 443.9 6. Wound infection T14.8XXA 958.3 L08.9 7. Critical limb ischemia of left lower extremity I70.222 440.22 Problem List[1] Past Medical History: Diagnosis Date Anemia Cellulitis Diabetes mellitus Frequent falls History of DVT (deep vein thrombosis) Hyperlipidemia Hypertension Migraines Myocardial infarction Peripheral neuropathy Pneumonia Spinal stenosis Wears dentures FULL Wears glasses Past Surgical History: Procedure Laterality Date ABOVE KNEE AMPUTATION Right AMPUTATION DIGIT Left 01/28/2024 Procedure: SECOND AND THIRD TOE AMPUTATION LEFT; Surgeon: Cecil Buenrostro Jr., MD; Location: [facility]; Service: Orthopedics; Laterality: Left; ANTERIOR CERVICAL DISCECTOMY W/ FUSION Bilateral 07/17/2020 Procedure: Cervical discectomy anterior with fusion C3-4; Surgeon: Tyree Tan MD; Location: [facility]; Service: Neurosurgery; Laterality: Bilateral; AORTOGRAM N/A 01/26/2024 Procedure: ABDOMINAL AORTIC ANGIOGRAM, LLE ANGIOGRAM, LEFT ANTERIOR TIBIAL ATHERECTOMY, LEFT ANTERIOR TIBIAL ANGIOPLASTY; Surgeon: Archie Olvera MD; Location: [facility]; Service: Vascular; Laterality: N/A; CONTRAST: 50 ML, FT: 2 MIN 54 SEC, DOSE: 66 MGY. BACK SURGERY FOR DISC HERNIATION CARDIAC CATHETERIZATION CARDIAC CATHETERIZATION N/A 09/04/2024 Procedure: Peripheral angiography - Left lower extremity angio - Right femoral access; Surgeon: Jared Marcano MD; Location: [facility]; Service: Peripheral Vascular; Laterality: N/A; CORONARY ANGIOPLASTY WITH STENT PLACEMENT stent x 1 INCISION AND DRAINAGE FOOT Left 06/17/2023 Procedure: LEFT FOOT DEBRIDEMENT WOUND VACUUM ASSISTED CLOSURE; Surgeon: Cecil Buenrostro Jr., MD;Location: [facility]; Service: Orthopedics; Laterality: Left; INCISION AND DRAINAGE LEG Left 07/25/2023 Procedure: INCISION AND DRAINAGE HEEL, WOUND VAC; Surgeon: Cecil Buenrostro Jr., MD; Location: [facility]; Service: Orthopedics; Laterality: Left; INTERVENTIONAL RADIOLOGY PROCEDURE N/A 05/02/2019 Procedure: IVC FILTER PLACEMENT; Surgeon: Pedro Zapien MD; Location: [facility]; Service: Interventional Radiology INTERVENTIONAL RADIOLOGY PROCEDURE Left 09/07/2024 Procedure: LEFT peroneal arteriovenous fistula embolization - Right femoral access; Surgeon: Jared Marcano MD; Location: [facility]; Service: Cardiovascular; Laterality: Left; Please coordinate with Gautam Patel ([facility]) [phone] who will bring coils LUMBAR DISCECTOMY N/A 05/03/2019 Procedure: THORACIC LAMINECTOMY T11-12; Surgeon: Tyree Tan MD; Location: [facility]; Service: Neurosurgery General Information Row Name 06/29/25902 Physical Therapy Time and Intention Document Type therapy note (daily note) -ML Mode of Treatment physical therapy;co-treatment -ML Row Name 06/29/25902 General Information Patient Profile Reviewed yes -ML Existing Precautions/Restrictions fall;other (see comments) chronic de los santos, remote R BKA & L toeamputations. Chronic LLE cellulitis/wounds, sacral wounds -ML Barriers to Rehab medically complex;previous functional deficit;physical barrier;impaired sensation-ML Row Name 06/29/25902 Cognition Orientation Status (Cognition) oriented x 3 -ML Row Name 06/29/25902 Safety Issues/Impairments Affecting Functional Mobility Safety Issues Affecting Function (Mobility) insight into deficits/self- awareness;safety precaution awareness;safety precautions follow- through/compliance -ML Impairments Affecting Function (Mobility) balance;endurance/activity tolerance;pain;strength;sensation/sensory awareness;range of motion (ROM) -ML User Llanes (r) = Recorded By, (t) = Taken By, (c) = Cosigned By Initials Name Provider Type ML Leonie Thomas Physical Therapist Mobility Row Name 06/29/2504 Bed Mobility Bed Mobility rolling left;rolling right -ML Rolling Right Osteen (Bed Mobility) moderate assist (50% patient effort);1 person assist -ML Scooting/Bridging Osteen (Bed Mobility) minimum assist (75% patient effort);1 person assist -ML Assistive Device (Bed Mobility) bed rails;head of bed elevated -ML Row Name 06/29/25903 Bed-Chair Transfer Bed-Chair Osteen (Transfers) dependent (less than 25% patient effort);2 person assist -ML Assistive Device (Bed-Chair Transfers) lift device -ML User Llnaes (r) = Recorded By, (t) = Taken By, (c) = Cosigned By Initials Name Provider Type Leonie Hawthorne Physical Therapist Obj/Interventions No documentation. Goals/Plan No documentation. Clinical Impression Row Name 06/29/25904 Pain Pretreatment Pain Rating 7/10 -ML Posttreatment Pain Rating 7/10 -ML Pain Location extremity -ML Pain Side/Orientation left;lower -ML Pain Management Interventions exercise or physical activity utilized;positioning techniques utilized;nursing notified -ML Response to Pain Interventions activity participation with tolerable pain -ML Row Name 06/29/25904 Plan of Care Review Plan of Care Reviewed With patient -ML Progress no change -ML Outcome Evaluation Patient rolled R/L in bed with order to be cleaned and have lift sling placed. Patient required lift to transfer from bed to chair. Patient continues to present below baseline for mobility and would continue to benefit from skilled PT to address strength, balance and activity tolerance deficits. Continue current PT POC. -ML Row Name 06/29/25904 Positioning and Restraints Pre-Treatment Position in bed -ML Post Treatment Position chair -ML In Chair notified nsg;reclined;call light within reach;encouraged to call for assist;exit alarm on;waffle cushion;on mechanical lift sling;LLE elevated;with nsg -ML User Llanes (r) = Recorded By, (t) = Taken By, (c) = Cosigned By Initials Name Provider Type Leonie Hawthorne Physical Therapist Outcome Measures Row Name 06/29/25906 How much help from another person do you currently need... Turning from your back to your side while in flat bed without using bedrails? 3 -ML Moving from lying on back to sitting on the side of a flat bed without bedrails? 2 -ML Moving to and from a bed to a chair (including a wheelchair)? 1 -ML Standing up from a chair using your arms (e.g., wheelchair, bedside chair)? 1 -ML Climbing 3-5 steps with a railing? 1 -ML To walk in hospital room? 1 -ML AM-PAC 6 Clicks Score (PT) 9 -ML Highest Level of Mobility Goal Sit at Edge of Bed-3 -ML Row Name 06/29/25906 Functional Assessment Outcome Measure Options AM-PAC 6 Clicks Basic Mobility (PT) -ML User Llanes (r) = Recorded By, (t) = Taken By, (c) = Cosigned By Initials Name Provider Type Leonie Thomas Physical Therapist Physical Therapy Education Title: PT OT HOMICIDE INVESTIGATOR Therapies (In Progress) Topic: Physical Therapy (Done) Point: Mobility training (Done) Learning Progress Summary Patient Acceptance, E, VU,NR by at 06/29/2025 09 Acceptance, E, VU,NR by NS at 06/26/20251617 Point: Home exercise program (Done) Learning Progress Summary Patient Acceptance, E, VU,NR by NS at 06/26/20251617 Point: Body mechanics (Done) Learning Progress Summary Patient Acceptance, E, VU,NR by NS at 06/26/20251617 Point: Precautions (Done) Learning Progress Summary Patient Acceptance, E, VU,NR by at 06/29/2025906 Acceptance, E, VU,NR by NS at 06/26/20251617 User Llanes Initials Effective Dates Name Provider Type Discipline NS 02/26/21 - Mirela Hsu PT Physical Therapist PT 01/02/21 - Leonie Thomas Physical Therapist PT PT Recommendation and Plan Recommended discharge disposition is based on the functional assessment performed by PT/OT/Speech therapy (as applicable) and may not reflect the medical necessity determined by your provider or services covered by an individual patient's insurance plan or patient resource. Progress: no change Outcome Evaluation: Patient rolled R/L in bed with order to be cleaned and have lift sling placed. Patient required lift to transfer from bed to chair. Patient continues to present below baseline formobility and would continue to benefit from skilled PT to address strength, balance and activity tolerance deficits. Continue current PT POC. Time Calculation: PT Charges Row Name 06/29/25 0908 Time Calculation Start Time 0827 -ML PT Received On 06/29/25 -ML Timed Charges 39233 - PT Therapeutic Activity Minutes 15 -ML Total Minutes Timed Charges Total Minutes 15 -ML Total Minutes 15 -ML User Llanes (r) = Recorded By, (t) = Taken By, (c) = Cosigned By Initials Name Provider Type Leonie Thomas Physical Therapist Therapy Charges for Today Code Description Service Date Service Provider Modifiers Qty 14047003961 HC PT THERAPEUTIC ACT EA 15 MIN 06/29/2025 Leonie Thomas GP 1 PT G-Codes Outcome Measure Options: AM-PAC 6 Clicks Basic Mobility (PT) AM-PAC 6 Clicks Score (PT): 9 AM-PAC 6 Clicks Score (OT): 12 PT Discharge Summary Anticipated Discharge Disposition (PT): intermediate facility Leonie Martha 06/29/2025 [1] Patient Active Problem List Diagnosis Acute deep [...] traumatic brain injury Possible meningioma Moderate malnutrition Seizure disorder Adrenal insufficiency Dysphagia Pressure injury of buttock, stage 1 Pressure ulcers of skin of multiple topographic sites Cellulitis of left foot Gangrene History of DVT (deep vein thrombosis) Severe sepsis Hx of migraine headaches Coronary artery disease involving [place] coronary artery of [place] heart without angina pectoris Left leg cellulitis Altered mental status PAD (peripheral artery disease) Wound infection Type 2 diabetes mellitus with diabetic peripheral angiopathy without gangrene, without long-term current use of insulin Mixed hyperlipidemia S/P AKA (above knee amputation), right CHARLIE (acute kidney injury) Type 2 diabetes mellitus, with long-term current use of insulin Arteriovenous fistula, acquired Cellulitis Acute UTI (urinary tract infection) Diarrhea of presumed infectious origin Acute on chronic blood loss anemia BPH without obstruction/lower urinary tract symptoms GERD without esophagitis Bilateral inguinal hernia Gastroenteritis due to norovirus * Therapy Treatment Note - Fátima Mora, OT - 06/29/2025 8:26 AM EDT Images from the original note were not included. Patient Name: Trung Pool : 1955 Today's Date: 06/29/2025 Admit Date: 06/25/2025 Visit Dx: ICD-10-CM ICD-9-CM 1. Cellulitis of left lower extremity L03.116 682.6 2. Hematuria, unspecified type R31.9 599.70 3. Urinary tract infection associated with indwelling urethral catheter, initial encounter T83.717Z078.64 N39.0 599.0 4. Diarrhea, unspecified type R19.7 787.91 5. PAD (peripheral artery disease) I73.9 443.9 6. Wound infection T14.8XXA 958.3 L08.9 7. Critical limb ischemia of left lower extremity I70.222 440.22 Problem List[1] Past Medical History: Diagnosis Date Anemia Cellulitis Diabetes mellitus Frequent falls History of DVT (deep vein thrombosis) Hyperlipidemia Hypertension Migraines Myocardial infarction Peripheral neuropathy Pneumonia Spinal stenosis Wears dentures FULL Wears glasses Past Surgical History: Procedure Laterality Date ABOVE KNEE AMPUTATION Right AMPUTATION DIGIT Left 01/28/2024 Procedure: SECOND AND THIRD TOE AMPUTATION LEFT; Surgeon: Cecil Buenrostro Jr., MD; Location: [facility]; Service: Orthopedics; Laterality: Left; ANTERIOR CERVICAL DISCECTOMY W/ FUSION Bilateral 07/17/2020 Procedure: Cervical discectomy anterior with fusion C3-4; Surgeon: Tyree Tan MD; Location: [facility]; Service: Neurosurgery; Laterality: Bilateral; AORTOGRAM N/A 01/26/2024 Procedure: ABDOMINAL AORTIC ANGIOGRAM, LLE ANGIOGRAM, LEFT ANTERIOR TIBIAL ATHERECTOMY, LEFT ANTERIOR TIBIAL ANGIOPLASTY; Surgeon: Archie Olvera MD; Location: [facility]; Service: Vascular; Laterality: N/A; CONTRAST: 50 ML, FT: 2 MIN 54 SEC, DOSE: 66 MGY. BACK SURGERY FOR DISC HERNIATION CARDIAC CATHETERIZATION CARDIAC CATHETERIZATION N/A 09/04/2024 Procedure: Peripheral angiography - Left lower extremity angio - Right femoral access; Surgeon: Jared Marcano MD; Location: [facility]; Service: Peripheral Vascular; Laterality: N/A; CORONARY ANGIOPLASTY WITH STENT PLACEMENT stent x 1 INCISION AND DRAINAGE FOOT Left 06/17/2023 Procedure: LEFT FOOT DEBRIDEMENT WOUND VACUUM ASSISTED CLOSURE; Surgeon: Cecil Buenrostro Jr., MD;Location: [facility]; Service: Orthopedics; Laterality: Left; INCISION AND DRAINAGE LEG Left 07/25/2023 Procedure: INCISION AND DRAINAGE HEEL, WOUND VAC; Surgeon: Cecil uBenrostro Jr., MD; Location: [facility]; Service: Orthopedics; Laterality: Left; INTERVENTIONAL RADIOLOGY PROCEDURE N/A 05/02/2019 Procedure: IVC FILTER PLACEMENT; Surgeon: Pedro Zapien MD; Location: [facility]; Service: Interventional Radiology INTERVENTIONAL RADIOLOGY PROCEDURE Left 09/07/2024 Procedure: LEFT peroneal arteriovenous fistula embolization - Right femoral access; Surgeon: Jared Marcano MD; Location: [facility]; Service: Cardiovascular; Laterality: Left; Please coordinate with Gautam Patel ([facility]) [phone] who will bring coils LUMBAR DISCECTOMY N/A 05/03/2019 Procedure: THORACIC LAMINECTOMY T11-12; Surgeon: Tyree Tan MD; Location: [facility]; Service: Neurosurgery General Information Row Name 06/29/25925 OT Time and Intention Subjective Information complains of;pain -CHRISTA Document Type therapy note (daily note) -CHRISTA Mode of Treatment occupational therapy;co-treatment -CHRISTA Patient Effort good -CHRISTA Row Name 06/29/25925 General Information Patient Profile Reviewed yes -CHRISTA Existing Precautions/Restrictions fall;other (see comments) -CHRISTA Barriers to Rehab medically complex;previous functional deficit;physical barrier;impaired sensation-CHRISTA Row Name 06/29/25925 Cognition Orientation Status (Cognition) oriented x 3 -CHRISTA Row Name 06/29/25925 Safety Issues/Impairments Affecting Functional Mobility Safety Issues Affecting Function (Mobility) insight into deficits/self- awareness;safety precaution awareness -CHRISTA Impairments Affecting Function (Mobility) balance;endurance/activity tolerance;pain;strength;sensation/sensory awareness;range of motion (ROM) -CHRISTA User Llanes (r) = Recorded By, (t) = Taken By, (c) = Cosigned By Initials Name Provider Type CHRISTA Fátima Mora OT Occupational Therapist Mobility/ADL's Row Name 06/29/25926 Bed Mobility Bed Mobility rolling left;rolling right -CHRISTA Rolling Left Osteen (Bed Mobility) minimum assist (75% patient effort);verbal cues -CHRISTA Rolling Right Osteen (Bed Mobility) moderate assist (50% patient effort);1 person assist;verbal cues -CHRISTA Row Name 06/29/25926 Transfers Transfers bed-chair transfer -CHRISTA Row Name 06/29/25926 Bed-Chair Transfer Bed-Chair Osteen (Transfers) dependent (less than 25% patient effort);2 person assist -CHRISTA Assistive Device (Bed-Chair Transfers) lift device -CHRISTA Row Name 06/29/25926 Activities of Daily Living BADL Assessment/Intervention grooming;toileting -CHRISTA Row Name 06/29/25926 Upper Body Dressing Assessment/Training Osteen Level (Upper Body Dressing) doff;don;moderate assist (50% patient effort) -CHRISTA Position (Upper Body Dressing) supported sitting -CHRISTA Comment, (Upper Body Dressing) limited by lines, hospital gown -CHRISTA Row Name 06/29/25926 Grooming Assessment/Training Osteen Level (Grooming) wash face, hands;set up -CHRISTA Position (Grooming) supported sitting -CHRISTA Row Name 06/29/25926 Toileting Assessment/Training Osteen Level (Toileting) dependent (less than 25% patient effort) -CHRISTA Position (Toileting) supine -CHRISTA Comment, (Toileting) pt. assisted rolling min to mod A each direction, significant cleaning needed -CHRISTA User Llanes (r) = Recorded By, (t) = Taken By, (c) = Cosigned By Initials Name Provider Type Fátima Castle, OT Occupational Therapist Obj/Interventions No documentation. Goals/Plan Row Name 06/29/25931 Bed Mobility Goal 1 (OT) Activity/Assistive Device (Bed Mobility Goal 1, OT) rolling to left;rolling to right -CHRISTA Osteen Level/Cues Needed (Bed Mobility Goal 1, OT) minimum assist (75% or more patient effort);verbal cues required;nonverbal cues (demo/gesture) required -CHRISTA Time Frame (Bed Mobility Goal 1, OT) senior living goal (LTG);10 days -CHRISTA Progress/Outcomes (Bed Mobility Goal 1, OT) new goal -CHRISTA Row Name 06/29/25931 Transfer Goal 1 (OT) Activity/Assistive Device (Transfer Goal 1, OT) [id number]-[id number]/[id number]-uh-[id number] lateral transfer -CHRISTA Osteen Level/Cues Needed (Transfer Goal 1, OT) contact guard required -CHRISTA Time Frame (Transfer Goal 1, OT) lobsterman goal (LTG);10 days -CHRISTA Progress/Outcome (Transfer Goal 1, OT) goal revised this date;goal ongoing -CHRISTA Row Name 06/29/25 0932 Toileting Goal 1 (OT) Activity/Device (Toileting Goal 1, OT) adjust/manage clothing;perform perineal hygiene;commode, bedside with drop arms -CHRISTA Osteen Level/Cues Needed (Toileting Goal 1, OT) moderate assist (50-74% patient effort) -CHRISTA Time Frame (Toileting Goal 1, OT) short term goal (STG);5 days -CHRISTA Progress/Outcome (Toileting Goal 1, OT) goal no longer appropriate -CHRISTA User Llanes (r) = Recorded By, (t) = Taken By, (c) = Cosigned By Initials Name Provider Type Fátima Castle, OT Occupational Therapist Clinical Impression Row Name 06/29/25928 Pain Assessment Pretreatment Pain Rating 10 -CHRISTA Posttreatment Pain Rating 03/22 -CHRISTA Pain Location extremity -CHRISTA Pain Side/Orientation left;lower -CHRISTA Pain Management Interventions nursing notified;exercise or physical activity utilized;positioning techniques utilized -CHRISTA Response to Pain Interventions activity participation with tolerable pain -CHRISTA Row Name 06/29/25928 Plan of Care Review Plan of Care Reviewed With patient -CHRISTA Progress no change -CHRISTA Outcome Evaluation Patient needed min to mod A to roll in bed today for dependent cleaning of stooland lift placement and mod A to change out gown. Pt. continues to be below baseline with ADLs and transfers warranting continued skilled OT services to address deficit of strength, balance and endurance. Continue OT POC. -CHRISTA Row Name 06/29/25928 Therapy Plan Review/Discharge Plan (OT) Anticipated Discharge Disposition (OT) intermediate facility - Row Name 06/29/2529 Vital Signs Pre Systolic BP Rehab 132 -CHRISTA Pre Treatment Diastolic BP 67 -CHRISTA Post Systolic BP Rehab 142 -CHRISTA Post Treatment Diastolic BP 87 -CHRISTA Pretreatment Heart Rate (beats/min) 73 -CHRISTA Posttreatment Heart Rate (beats/min) 86 -CHRISTA Pre SpO2 (%) 97 -CHRISTA O2 Delivery Pre Treatment room air -CHRISTA O2 Delivery Intra Treatment room air -CHRISTA Post SpO2 (%) 97 -CHRISTA O2 Delivery Post Treatment room air -CHRISTA Pre Patient Position Supine -CHRISTA Intra Patient Position Sitting -CHRISTA Post Patient Position Sitting -CHRISTA Row Name 06/29/2529 Positioning and Restraints Pre-Treatment Position in bed -CHRISTA Post Treatment Position chair -CHRISTA In Chair notified nsg;reclined;call light within reach;encouraged to call for assist;exit alarm on;waffle cushion;on mechanical lift sling;LLE elevated;with nsg -CHRISTA User Llanes (r) = Recorded By, (t) = Taken By, (c) = Cosigned By Initials Name Provider Type Fátima Castle, OT Occupational Therapist Outcome Measures Row Name 06/29/2532 How much help from another is currently needed... Putting on and taking off regular lower body clothing? 1 -CHRISTA Bathing (including washing, rinsing, and drying) 2 -CHRISTA Toileting (which includes using toilet bed chavis or urinal) 1 -CHRISTA Putting on and taking off regular upper body clothing 2 -CHRISTA Taking care of personal grooming (such as brushing teeth) 3 -CHRISTA Eating meals 4 -CHRISTA AM-PAC 6 Clicks Score (OT) 13 -CHRISTA Row Name 06/29/25906 How much help from another person do you currently need... Turning from your back to your side while in flat bed without using bedrails? 3 -ML Moving from lying on back to sitting on the side of a flat bed without bedrails? 2 -ML Moving to and from a bed to a chair (including a wheelchair)? 1 -ML Standing up from a chair using your arms (e.g., wheelchair, bedside chair)? 1 -ML Climbing 3-5 steps with a railing? 1 -ML To walk in hospital room? 1 -ML AM-PAC 6 Clicks Score (PT) 9 -ML Highest Level of Mobility Goal Sit at Edge of Bed-3 -ML Row Name 06/29/25 0932 06/29/25906 Functional Assessment Outcome Measure Options AM-PAC 6 Clicks Daily Activity (OT) -CHRISTA AM-PAC 6 Clicks Basic Mobility (PT)-ML User Llanes (r) = Recorded By, (t) = Taken By, (c) = Cosigned By Initials Name Provider Type Fátima Castle, SOCO Occupational Therapist Leonie Hawthorne Physical Therapist Occupational Therapy Education Title: PT OT HOMICIDE INVESTIGATOR Therapies (In Progress) Topic: Occupational Therapy (In Progress) Point: ADL training (Done) Learning Progress Summary Patient Acceptance, E, VU by CHRISTA at 06/29/2025 0933 Comment: benefit of sitting up, ADL progression Acceptance, E, NR by at 06/26/2025 1541 Point: Precautions (In Progress) Learning Progress Summary Patient Acceptance, E, NR by at 06/26/2025 1541 Point: Body mechanics (In Progress) Learning Progress Summary Patient Acceptance, E, NR by at 06/26/2025 1541 User Llanes Initials Effective Dates Name Provider Type Discipline 03/23/23 - Fátima Mora OT Occupational Therapist OT 06/26/22 - Crys Ferrari OT Occupational Therapist OT OT Recommendation and Plan Recommended discharge disposition is based on the functional assessment performed by PT/OT/Speech therapy (as applicable) and may not reflect the medical necessity determined by your provider or services covered by an individual patient's insurance plan or patient resource. Plan of Care Review Plan of Care Reviewed With: patient Progress: no change Outcome Evaluation: Patient needed min to mod A to roll in bed today for dependent cleaning of stool and lift placement and mod A to change out gown. Pt. continues to be below baseline with ADLs and transfers warranting continued skilled OT services to address deficit of strength, balance and endurance. Continue OT POC. Time Calculation: Time Calculation- OT Row Name 06/29/25 0934 Time Calculation- OT OT Start Time 0826 -CHRISTA OT Received On 06/29/25 -CHRISTA OT Goal Re-Cert Due Date 07/06/25 -CHRISTA Timed Charges 00712 - OT Therapeutic Activity Minutes 7 -CHRISTA 31043 - OT Self Care/Mgmt Minutes 8 -CHRISTA Total Minutes Timed Charges Total Minutes 15 -CHRISTA Total Minutes 15 -CHRISTA User Llanes (r) = Recorded By, (t) = Taken By, (c) = Cosigned By Initials Name Provider Type Fátima Mora OT Occupational Therapist Therapy Charges for Today Code Description Service Date Service Provider Modifiers Qty [id number] HC OT SELF CARE/MGMT/TRAIN EA 15 MIN 06/29/2025 Fátima Mora OT GO 1 Fátima Mora OT 06/29/2025 [1] Patient Active Problem List Diagnosis Acute deep [...] traumatic brain injury Possible meningioma Moderate malnutrition Seizure disorder Adrenal insufficiency Dysphagia Pressure injury of buttock, stage 1 Pressure ulcers of skin of multiple topographic sites Cellulitis of left foot Gangrene History of DVT (deep vein thrombosis) Severe sepsis Hx of migraine headaches Coronary artery disease involving [place] coronary artery of [place] heart without angina pectoris Left leg cellulitis Altered mental status PAD (peripheral artery disease) Wound infection Type 2 diabetes mellitus with diabetic peripheral angiopathy without gangrene, without long-term current use of insulin Mixed hyperlipidemia S/P AKA (above knee amputation), right CHARLIE (acute kidney injury) Type 2 diabetes mellitus, with long-term current use of insulin Arteriovenous fistula, acquired Cellulitis Acute UTI (urinary tract infection) Diarrhea of presumed infectious origin Acute on chronic blood loss anemia BPH without obstruction/lower urinary tract symptoms GERD without esophagitis Bilateral inguinal hernia Gastroenteritis due to norovirus * Case Management/Social Work - Monalisa Reilly RN - 06/28/2025 1:18 PM EDT Continued Stay Note [facility] Patient Name: Trung Pool Today's Date: 06/28/2025 Admit Date: 06/25/2025 Plan: Home, [facility] Discharge Plan Row Name 06/28/25 1312 Plan Plan Home, [facility] Patient/Family in Agreement with Plan yes Plan Comments PT and OT have worked with Mr Pool and they are recommending SNF. I spoke with Mr Pool at bedside about this. At this time he would like to decline SNF, and return home with home health. I called [facility], and they were able to confirm that Mr Pool is a current patient of theirs for intermediate only. Case management will place resumption of care orders in when Mr Pool is closer to discharge. Case management will continue to follow. Final Discharge Disposition Code 06 - home with home health care Discharge Codes No documentation. Expected Discharge Date and Time Expected Discharge Date Expected Discharge Time Jun 27, 2025 Monalisa Reilly RN * Therapy Evaluation - Mirela Hsu, PT - 06/26/2025 2:35 PM EDT Images from the original note were not included. Patient Name: Trung Pool : 1955 Today's Date: 06/26/2025 Admit Date: 06/25/2025 Visit Dx: ICD-10-CM ICD-9-CM 1. Cellulitis of left lower extremity L03.116 682.6 2. Hematuria, unspecified type R31.9 599.70 3. Urinary tract infection associated with indwelling urethral catheter, initial encounter T83.269O365.64 N39.0 599.0 4. Diarrhea, unspecified type R19.7 787.91 5. PAD (peripheral artery disease) I73.9 443.9 6. Wound infection T14.8XXA 958.3 L08.9 7. Critical limb ischemia of left lower extremity I70.222 440.22 Problem List[1] Past Medical History: Diagnosis Date Anemia Cellulitis Diabetes mellitus Frequent falls History of DVT (deep vein thrombosis) Hyperlipidemia Hypertension Migraines Myocardial infarction Peripheral neuropathy Pneumonia Spinal stenosis Wears dentures FULL Wears glasses Past Surgical History: Procedure Laterality Date ABOVE KNEE AMPUTATION Right AMPUTATION DIGIT Left 01/28/2024 Procedure: SECOND AND THIRD TOE AMPUTATION LEFT; Surgeon: Cecil Buenrostro Jr., MD; Location: [facility]; Service: Orthopedics; Laterality: Left; ANTERIOR CERVICAL DISCECTOMY W/ FUSION Bilateral 07/17/2020 Procedure: Cervical discectomy anterior with fusion C3-4; Surgeon: Tyree Tan MD; Location:[facility]; Service: Neurosurgery; Laterality: Bilateral; AORTOGRAM N/A 01/26/2024 Procedure: ABDOMINAL AORTIC ANGIOGRAM, LLE ANGIOGRAM, LEFT ANTERIOR TIBIAL ATHERECTOMY, LEFT ANTERIOR TIBIAL ANGIOPLASTY; Surgeon: Archie Olvera MD; Location: [facility]; Service: Vascular; Laterality: N/A; CONTRAST: 50 ML, FT: 2 MIN 54 SEC, DOSE: 66 MGY. BACK SURGERY FOR DISC HERNIATION CARDIAC CATHETERIZATION CARDIAC CATHETERIZATION N/A 09/04/2024 Procedure: Peripheral angiography - Left lower extremity angio - Right femoral access; Surgeon: Jared Marcano MD; Location: [facility]; Service: Peripheral Vascular; Laterality: N/A; CORONARY ANGIOPLASTY WITH STENT PLACEMENT stent x 1 INCISION AND DRAINAGE FOOT Left 06/17/2023 Procedure: LEFT FOOT DEBRIDEMENT WOUND VACUUM ASSISTED CLOSURE; Surgeon: Cecil Buenrostro Jr., MD;Location: [facility]; Service: Orthopedics; Laterality: Left; INCISION AND DRAINAGE LEG Left 07/25/2023 Procedure: INCISION AND DRAINAGE HEEL, WOUND VAC; Surgeon: Cecil Buenrostro Jr., MD; Location: [facility]; Service: Orthopedics; Laterality: Left; INTERVENTIONAL RADIOLOGY PROCEDURE N/A 05/02/2019 Procedure: IVC FILTER PLACEMENT; Surgeon: Pedro Zapien MD; Location: [facility]; Service: Interventional Radiology INTERVENTIONAL RADIOLOGY PROCEDURE Left 09/07/2024 Procedure: LEFT peroneal arteriovenous fistula embolization - Right femoral access; Surgeon: Jared Marcano MD; Location: [facility]; Service: Cardiovascular; Laterality: Left; Please coordinate with Gautam Patel ([facility]) [phone] who will bring coils LUMBAR DISCECTOMY N/A 05/03/2019 Procedure: THORACIC LAMINECTOMY T11-12; Surgeon: Tyree Tan MD; Location: [facility]; Service: Neurosurgery General Information Row Name 06/26/25 1435 Physical Therapy Time and Intention Document Type evaluation -NS Mode of Treatment physical therapy;co-treatment -NS Row Name 06/26/25 1431 General Information Patient Profile Reviewed yes -NS Prior Level of Function independent:;transfer;bed mobility;max assist:;ADL's Pt reports he performslateral transfers from bed to motorized w/c. Pt has a caregiver for 3 hours 2 days a week & a neighbor he calls PRN. Pt sponge bathes in the bed & has bowel movements in bed & calls caregiver/neighbor to clean him up. -NS Existing Precautions/Restrictions fall;other (see comments) chronic de [place], remote R BKA & L toeamputations. Chronic LLE cellulitis/wounds, sacral wounds -NS Barriers to Rehab medically complex;previous functional deficit;physical barrier -NS Row Name 06/26/25 5059 Living Environment Current Living Arrangements home -NS People in Home alone -NS [facility] Name 06/26/251434 Home Main Entrance Number of Stairs, Main Entrance none ramp to enter -NS [facility] Name 06/26/251434 Stairs Within Home, Primary Number of Stairs, Within Home, Primary none -NS [facility] 06/26/251434 Cognition Orientation Status (Cognition) oriented x 3 -NS [facility] Name 06/26/251434 Safety Issues/Impairments Affecting Functional Mobility Safety Issues Affecting Function (Mobility) insight into deficits/self- awareness;safety precaution awareness;safety precautions follow- through/compliance;judgment -NS Impairments Affecting Function (Mobility) balance;endurance/activity tolerance;pain;strength;sensation/sensory awareness;range of motion (ROM);coordination -NS User Llanes (r) = Recorded By, (t) = Taken By, (c) = Cosigned By Initials Name Provider Type Mirela Gabriel PT Physical Therapist Mobility Row Name 06/26/251434 Bed Mobility Bed Mobility supine-sit;sit-supine;scooting/bridging;rolling left -NS Rolling Left Osteen (Bed Mobility) supervision;verbal cues -NS Scooting/Bridging Osteen (Bed Mobility) supervision;verbal cues -NS Supine-Sit Osteen (Bed Mobility) contact guard;verbal cues -NS Sit-Supine Osteen (Bed Mobility) standby assist;verbal cues -NS Assistive Device (Bed Mobility) bed rails;head of bed elevated -NS Comment, (Bed Mobility) cues for sequencing all mobility, increased time and effort to complete -NS [facility] Name 06/26/251434 Transfers Comment, (Transfers) Pt declined transfer to the chair due to sacral wounds. -NS [facility] Name 06/26/251434 Bed-Chair Transfer Bed-Chair Osteen (Transfers) not tested -NS [facility] 06/26/25 [facility] Sit-Stand Transfer Sit-Stand Osteen (Transfers) not tested -NS [facility] 06/26/25 [facility] Gait/Stairs (Locomotion) Osteen Level (Gait) not tested -NS Comment, (Gait/Stairs) Pt is nonambulatory at baseline. -NS User Llanes (r) = Recorded By, (t) = Taken By, (c) = Cosigned By Initials Name Provider Type Mirela Gabriel PT Physical Therapist Obj/Interventions Row Name 06/26/251434 Range of Motion Comprehensive General Range of Motion bilateral lower extremity ROM WFL -NS Row Name 06/26/25 143 Strength Comprehensive (MMT) General Manual Muscle Testing (MMT) Assessment lower extremity strength deficits identified -NS Comment, General Manual Muscle Testing (MMT) Assessment Unable to assess L foot due to wrapping, L knee ext: 3/5 -NS Row Name 06/26/25 [facility] Balance Balance Assessment sitting static balance;sitting dynamic balance -NS Static Sitting Balance standby assist -NS Dynamic Sitting Balance contact guard -NS Position, Sitting Balance unsupported;sitting edge of bed -NS Row Name 06/26/25 [facility] Sensory Assessment (Somatosensory) Sensory Assessment (Somatosensory) bilateral LE -NS Bilateral LE Sensory Assessment general sensation;impaired -NS User Llanes (r) = Recorded By, (t) = Taken By, (c) = Cosigned By Initials Name Provider Type Mirela Gabriel, PT Physical Therapist Goals/Plan [facility] Name 06/26/25 [facility] Bed Mobility Goal 1 (PT) Activity/Assistive Device (Bed Mobility Goal 1, PT) supine to sit;rolling to left;rolling to right -NS Osteen Level/Cues Needed (Bed Mobility Goal 1, PT) independent -NS Time Frame (Bed Mobility Goal 1, PT) short term goal (STG);5 days -NS [facility] Name 06/26/251434 Transfer Goal 1 (PT) Activity/Assistive Device (Transfer Goal 1, PT) elw-jf-lmbvg/ujiaf-kp-pna;awb-za-bezrp/wwgpv-bv-zqx-NS Osteen Level/Cues Needed (Transfer Goal 1, PT) minimum assist (75% or more patient effort) -NS Time Frame (Transfer Goal 1, PT) lobsterman goal (LTG);10 days -NS [facility] Name 06/26/25 143 Balance Goal 1 (PT) Activity/Assistive Device (Balance Goal) sitting dynamic balance -NS Osteen Level/Cues Needed (Balance Goal 1, PT) supervision required -NS Time Frame (Balance Goal 1, PT) short-term goal (STG);3-5 days -[facility] Name 06/26/25 [facility] Therapy Assessment/Plan (PT) Planned Therapy Interventions (PT) balance training;bed mobility training;home exercise program;neuromuscular re-education;strengthening;ROM (range of motion);patient/family education;transfer training -NS User Llanes (r) = Recorded By, (t) = Taken By, (c) = Cosigned By Initials Name Provider Type Mirela Gabriel, PT Physical Therapist Clinical Impression Row Name 06/26/25 1609 Pain Pretreatment Pain Rating 0/10 - no pain -NS Posttreatment Pain Rating 0/10 - no pain -NS Row Name 06/26/25 1609 Plan of Care Review Plan of Care Reviewed With patient -NS Progress no change -NS Outcome Evaluation Patient presents with weakness, decreased balance, and deficits in trunk controlaffecting functional mobility. Patient presents with decreased ability to care for self at home. Skilled IP PT services warranted to increase independence. Recommend SNF at discharge. -NS Row Name 06/26/25 1609 Therapy Assessment/Plan (PT) Patient/Family Therapy Goals Statement (PT) to get stronger -NS Rehab Potential (PT) fair -NS Criteria for Skilled Interventions Met (PT) yes;meets criteria;skilled treatment is necessary -NS Therapy Frequency (PT) daily -NS Predicted Duration of Therapy Intervention (PT) 10 days -NS Row Name 06/26/25 1609 Vital Signs Pre Systolic BP Rehab 126 -NS Pre Treatment Diastolic BP 62 -NS Pretreatment Heart Rate (beats/min) 83 -NS Posttreatment Heart Rate (beats/min) 82 -NS O2 Delivery Pre Treatment room air -NS O2 Delivery Post Treatment room air -NS Pre Patient Position Supine -NS Intra Patient Position Sitting -NS Post Patient Position Supine -NS Row Name 06/26/25 1609 Positioning and Restraints Pre-Treatment Position in bed -NS Post Treatment Position bed -NS In Bed notified nsg;supine;call light within reach;encouraged to call for assist;exit alarm on;siderails up x2;LLE elevated -NS User Llanes (r) = Recorded By, (t) = Taken By, (c) = Cosigned By Initials Name Provider Type Mirela Gabriel, PT Physical Therapist Outcome Measures Row Name 06/26/25 9830 How much help from another person do you currently need... Turning from your back to your side while in flat bed without using bedrails? 3 -NS Moving from lying on back to sitting on the side of a flat bed without bedrails? 2 -NS Moving to and from a bed to a chair (including a wheelchair)? 2 -NS Standing up from a chair using your arms (e.g., wheelchair, bedside chair)? 1 -NS Climbing 3-5 steps with a railing? 1 -NS To walk in hospital room? 1 -NS AM-PAC 6 Clicks Score (PT) 10 -NS Highest Level of Mobility Goal Move to Chair/Commode-4 -NS Row Name 06/26/25 1541 06/26/25 1435 Functional Assessment Outcome Measure Options AM-PAC 6 Clicks Daily Activity (OT) - AM-PAC 6 Clicks Basic Mobility (PT)- User Llanes (r) = Recorded By, (t) = Taken By, (c) = Cosigned By Initials Name Provider Type Mirela Gabriel, PT Physical Therapist Crys Louise, OT Occupational Therapist Physical Therapy Education Title: PT OT HOMICIDE INVESTIGATOR Therapies (In Progress) Topic: Physical Therapy (Done) Point: Mobility training (Done) Learning Progress Summary Patient Acceptance, E, VU,NR by CHICHO at 06/26/2025 1618 Point: Home exercise program (Done) Learning Progress Summary Patient Acceptance, E, VU,NR by CHICHO at 06/26/2025 1618 Point: Body mechanics (Done) Learning Progress Summary Patient Acceptance, E, VU,NR by CHICHO at 06/26/2025 1618 Point: Precautions (Done) Learning Progress Summary Patient Acceptance, E, VU,NR by CHICHO at 06/26/2025 1618 User Llanes Initials Effective Dates Name Provider Type Discipline CHICHO 02/26/21 - Mirela Hsu, PT Physical Therapist PT PT Recommendation and Plan Recommended discharge disposition is based on the functional assessment performed by PT/OT/Speech therapy (as applicable) and may not reflect the medical necessity determined by your provider or services covered by an individual patient's insurance plan or patient resource. Planned Therapy Interventions (PT): balance training, bed mobility training, home exercise program,neuromuscular re-education, strengthening, ROM (range of motion), patient/family education, transfer training Therapy Frequency (PT): daily Progress: no change Outcome Evaluation: Patient presents with weakness, decreased balance, and deficits in trunk control affecting functional mobility. Patient presents with decreased ability to care for self at home. Skilled IP PT services warranted to increase independence. Recommend SNF at discharge. Time Calculation: PT Evaluation Complexity History, PT Evaluation Complexity: 3 or more personal factors and/or comorbidities Examination of Body Systems (PT Eval Complexity): total of 4 or more elements Clinical Presentation (PT Evaluation Complexity): stable Clinical Decision Making (PT Evaluation Complexity): low complexity Overall Complexity (PT Evaluation Complexity): low complexity PT Charges Row Name 06/26/25 1435 Time Calculation Start Time 1435 -NS PT Received On 06/26/25 -NS PT Goal Re-Cert Due Date 07/06/25 -NS Timed Charges 13752 - PT Therapeutic Activity Minutes 10 -NS Untimed Charges PT Eval/Re-eval Minutes 62 -NS Total Minutes Timed Charges Total Minutes 10 -NS Untimed Charges Total Minutes 62 -NS Total Minutes 72 -NS User Llanes (r) = Recorded By, (t) = Taken By, (c) = Cosigned By Initials Name Provider Type NS Mirela Hsu, PT Physical Therapist Therapy Charges for Today Code Description Service Date Service Provider Modifiers Qty [id number] HC PT THERAPEUTIC ACT EA 15 MIN 06/26/2025 Mirela Hsu, PT GP 1 [id number] HC PT EVAL LOW COMPLEXITY 5 06/26/2025 Mirela Hsu, PT 1 PT G-Codes Outcome Measure Options: AM-PAC 6 Clicks Daily Activity (OT) AM-PAC 6 Clicks Score (PT): 10 AM-PAC 6 Clicks Score (OT): 12 PT Discharge Summary Anticipated Discharge Disposition (PT): intermediate facility Mirela Hsu PT 06/26/2025 [1] Patient Active Problem List Diagnosis Acute deep [...] traumatic brain injury Possible meningioma Moderate malnutrition Seizure disorder Adrenal insufficiency Dysphagia Pressure injury of buttock, stage 1 Pressure ulcers of skin of multiple topographic sites Cellulitis of left foot Gangrene History of DVT (deep vein thrombosis) Severe sepsis Hx of migraine headaches Coronary artery disease involving [place] coronary artery of [place] heart without angina pectoris Left leg cellulitis Altered mental status PAD (peripheral artery disease) Wound infection Type 2 diabetes mellitus with diabetic peripheral angiopathy without gangrene, without long-term current use of insulin Mixed hyperlipidemia S/P AKA (above knee amputation), right CHARLIE (acute kidney injury) Type 2 diabetes mellitus, with long-term current use of insulin Arteriovenous fistula, acquired Cellulitis Acute UTI (urinary tract infection) Diarrhea of presumed infectious origin Acute on chronic blood loss anemia BPH without obstruction/lower urinary tract symptoms GERD without esophagitis Bilateral inguinal hernia Gastroenteritis due to norovirus * Therapy Evaluation - Crys Ferrari, OT - 06/26/2025 2:34 PM EDT Images from the original note were not included. Patient Name: Trung Pool : 1955 Today's Date: 06/26/2025 Admit Date: 06/25/2025 Visit Dx: ICD-10-CM ICD-9-CM 1. Cellulitis of left lower extremity L03.116 682.6 2. Hematuria, unspecified type R31.9 599.70 3. Urinary tract infection associated with indwelling urethral catheter, initial encounter [id number] N39.0 599.0 4. Diarrhea, unspecified type R19.7 787.91 Problem List[1] Past Medical History: Diagnosis Date Anemia Cellulitis Diabetes mellitus Frequent falls History of DVT (deep vein thrombosis) Hyperlipidemia Hypertension Migraines Myocardial infarction Peripheral neuropathy Pneumonia Spinal stenosis Wears dentures FULL Wears glasses Past Surgical History: Procedure Laterality Date ABOVE KNEE AMPUTATION Right AMPUTATION DIGIT Left 01/28/2024 Procedure: SECOND AND THIRD TOE AMPUTATION LEFT; Surgeon: Cecil Buenrostro Jr., MD; Location: [facility]; Service: Orthopedics; Laterality: Left; ANTERIOR CERVICAL DISCECTOMY W/ FUSION Bilateral 07/17/2020 Procedure: Cervical discectomy anterior with fusion C3-4; Surgeon: Tyree Tan MD; Location:[facility]; Service: Neurosurgery; Laterality: Bilateral; AORTOGRAM N/A 01/26/2024 Procedure: ABDOMINAL AORTIC ANGIOGRAM, LLE ANGIOGRAM, LEFT ANTERIOR TIBIAL ATHERECTOMY, LEFT ANTERIOR TIBIAL ANGIOPLASTY; Surgeon: Archie Olvera MD; Location: [facility]; Service: Vascular; Laterality: N/A; CONTRAST: 50 ML, FT: 2 MIN 54 SEC, DOSE: 66 MGY. BACK SURGERY FOR DISC HERNIATION CARDIAC CATHETERIZATION CARDIAC CATHETERIZATION N/A 09/04/2024 Procedure: Peripheral angiography - Left lower extremity angio - Right femoral access; Surgeon: Jared Marcano MD; Location: [facility] LOC[facility]; Service: Peripheral Vascular; Laterality: N/A; CORONARY ANGIOPLASTY WITH STENT PLACEMENT stent x 1 INCISION AND DRAINAGE FOOT Left 06/17/2023 Procedure: LEFT FOOT DEBRIDEMENT WOUND VACUUM ASSISTED CLOSURE; Surgeon: Cecil Buenrostro Jr., MD;Location: [facility] OR; Service: Orthopedics; Laterality: Left; INCISION AND DRAINAGE LEG Left 07/25/2023 Procedure: INCISION AND DRAINAGE HEEL, WOUND VAC; Surgeon: Cecil Buenrostro Jr., MD; Location: [facility] OR; Service: Orthopedics; Laterality: Left; INTERVENTIONAL RADIOLOGY PROCEDURE N/A 05/02/2019 Procedure: IVC FILTER PLACEMENT; Surgeon: Pedro Zapien MD; Location: [facility] LOCATION; Service: Interventional Radiology INTERVENTIONAL RADIOLOGY PROCEDURE Left 09/07/2024 Procedure: LEFT peroneal arteriovenous fistula embolization - Right femoral access; Surgeon: Jared Marcano MD; Location: [facility] LOCATION; Service: Cardiovascular; Laterality: Left; Please coordinate with Gautam Patel ([facility]) [phone] who will bring coils LUMBAR DISCECTOMY N/A 05/03/2019 Procedure: THORACIC LAMINECTOMY T11-12; Surgeon: Tyree Tan MD; Location: [facility]; Service: Neurosurgery General Information Row Name 06/26/25 1434 OT Time and Intention Document Type evaluation - Mode of Treatment occupational therapy;co-treatment - Row Name 06/26/25 1434 General Information Patient Profile Reviewed yes - Prior Level of Function independent:;bed mobility;transfer;w/c or scooter;max assist:;ADL's Pt reports he performs lateral transfers from hosp bed to motorized w/c. Pt has a caregiver for 3 hours 2 days a week & a neighbor he can call for A PRN. Pt sponge bathes in the bed & has bowel movements in bed & calls caregiver/neighbor to clean him up. - Existing Precautions/Restrictions fall;other (see comments) chronic de [place], remote R BKA & L toeamputations. Chronic LLE cellulitis/wounds, sacral wounds - Barriers to Rehab medically complex;previous functional deficit;cognitive status;physical barrier - Row Name 06/26/25 1438 Living Environment Current Living Arrangements home - People in Home alone - Row Name 06/26/25 143 Home Main Entrance Number of Stairs, Main Entrance other (see comments) ramp - Row Name 06/26/25 143 Stairs Within Home, Primary Number of Stairs, Within Home, Primary none - Row Name 06/26/25 143 Cognition Orientation Status (Cognition) oriented x 3 - Row Name 06/26/25 143 Safety Issues/Impairments Affecting Functional Mobility Safety Issues Affecting Function (Mobility) awareness of need for assistance;insight into deficits/self-awareness;safety precaution awareness;safety precautions follow-through/compliance;sequencing abilities - Impairments Affecting Function (Mobility) balance;endurance/activity tolerance;pain;strength;sensation/sensory awareness - User Llanes (r) = Recorded By, (t) = Taken By, (c) = Cosigned By Initials Name Provider Type Crys Ferrari OT Occupational Therapist Mobility/ADL's Row Name 06/26/25 143 Bed Mobility Bed Mobility supine-sit;sit-supine;scooting/bridging;rolling left - Rolling Left Osteen (Bed Mobility) supervision;verbal cues - Scooting/Bridging Osteen (Bed Mobility) supervision;verbal cues - Supine-Sit Osteen (Bed Mobility) standby assist;verbal cues - Sit-Supine Osteen (Bed Mobility) standby assist;verbal cues - Assistive Device (Bed Mobility) bed rails;head of bed elevated - Row Name 06/26/25 143 Transfers Comment, (Transfers) Pt declined OOB activity - Row Name 06/26/25 [facility] Functional Mobility Functional Mobility- Ind. Level unable to perform - Row Name 06/26/25 143 Activities of Daily Living BADL Assessment/Intervention upper body dressing - Row Name 06/26/25 143 Upper Body Dressing Assessment/Training Osteen Level (Upper Body Dressing) doff;don;other (see comments);minimum assist (75% patient effort) - Position (Upper Body Dressing) edge of bed sitting - Comment, (Upper Body Dressing) hosp gown - User Llanes (r) = Recorded By, (t) = Taken By, (c) = Cosigned By Initials Name Provider Type Crys Ferrari OT Occupational Therapist Obj/Interventions Row Name 06/26/25 1530 Sensory Assessment (Somatosensory) Sensory Assessment (Somatosensory) UE sensation intact -[facility] Name 06/26/251529 Vision Assessment/Intervention Visual Impairment/Limitations WFL -[facility] Name 06/26/251529 Range of Motion Comprehensive General Range of Motion bilateral upper extremity ROM WFL -[facility] Name 06/26/251529 Strength Comprehensive (MMT) General Manual Muscle Testing (MMT) Assessment upper extremity strength deficits identified - Comment, General Manual Muscle Testing (MMT) Assessment BUE grossly 4+/5 -[facility] Name 06/26/251529 Balance Balance Assessment sitting static balance;sitting dynamic balance - Static Sitting Balance standby assist - Dynamic Sitting Balance contact guard - Position, Sitting Balance unsupported;sitting edge of bed - Balance Interventions sitting;static;dynamic;occupation based/functional task - User Llanes (r) = Recorded By, (t) = Taken By, (c) = Cosigned By Initials Name Provider Type Crys Ferrari OT Occupational Therapist Goals/Plan [facility] Name 06/26/251535 Transfer Goal 1 (OT) Activity/Assistive Device (Transfer Goal 1, OT) commode, bedside with drop arms;zrl-nu-mxads/flhoj-sk-pim lateral transfers - Osteen Level/Cues Needed (Transfer Goal 1, OT) contact guard required - Time Frame (Transfer Goal 1, OT) lobsterman goal (LTG);10 days - Progress/Outcome (Transfer Goal 1, OT) goal ongoing -[facility] Name 06/26/251535 Toileting Goal 1 (OT) Activity/Device (Toileting Goal 1, OT) adjust/manage clothing;perform perineal hygiene;commode, bedside with drop arms - Osteen Level/Cues Needed (Toileting Goal 1, OT) moderate assist (50-74% patient effort) - Time Frame (Toileting Goal 1, OT) short term goal (STG);5 days - Progress/Outcome (Toileting Goal 1, OT) goal ongoing -[facility] Name 06/26/251535 Therapy Assessment/Plan (OT) Planned Therapy Interventions (OT) activity tolerance training;adaptive equipment training;BADL retraining;functional balance retraining;IADL retraining;occupation/activity based interventions;patient/caregiver education/training;ROM/therapeutic exercise;strengthening exercise;transfer/mobility retraining - User Llanes (r) = Recorded By, (t) = Taken By, (c) = Cosigned By Initials Name Provider Type Crys Louise OT Occupational Therapist Clinical Impression Row Name 06/26/25 153 Pain Assessment Pretreatment Pain Rating 0/10 - no pain - Posttreatment Pain Rating 0/10 - no pain - Row Name 06/26/25 153 Plan of Care Review Plan of Care Reviewed With patient - Outcome Evaluation Pt's ADL independence limited d/t decreased functional endurance, LE strength deficits, and balance deficits. Pt would benefit from continued skilled IPOT services to address current functional deficits. Rec SNF at d/c. - Row Name 06/26/25 153 Therapy Assessment/Plan (OT) Patient/Family Therapy Goal Statement (OT) Return to PLOF - Rehab Potential (OT) fair - Criteria for Skilled Therapeutic Interventions Met (OT) yes;skilled treatment is necessary [facility] [place] Frequency (OT) daily - Predicted Duration of Therapy Intervention (OT) 10 days - Row Name 06/26/25 153 Therapy Plan Review/Discharge Plan (OT) Anticipated Discharge Disposition (OT) intermediate facility - Row Name 06/26/25 153 Vital Signs O2 Delivery Pre Treatment room air - O2 Delivery Intra Treatment room air - O2 Delivery Post Treatment room air - Pre Patient Position Supine - Intra Patient Position Sitting - Post Patient Position Supine -[facility] Name 06/26/25 153 Positioning and Restraints Pre-Treatment Position in bed - Post Treatment Position bed - In Bed notified nsg;supine;call light within reach;encouraged to call for assist;exit alarm on;siderails up x3;L heel elevated - User Llanes (r) = Recorded By, (t) = Taken By, (c) = Cosigned By Initials Name Provider Type Crys Louise OT Occupational Therapist Outcome Measures Row Name 06/26/25 1081 How much help from another is currently needed... Putting on and taking off regular lower body clothing? 1 -MC Bathing (including washing, rinsing, and drying) 2 -MC Toileting (which includes using toilet bed chavis or urinal) 1 -MC Putting on and taking off regular upper body clothing 2 -MC Taking care of personal grooming (such as brushing teeth) 3 -MC Eating meals 3 - AM[facility] 6 Clicks Score (OT) 12 - Row Name 06/26/25 154 Functional Assessment Outcome Measure Options AM-[facility] 6 Clicks Daily Activity (OT) - User Llanes (r) = Recorded By, (t) = Taken By, (c) = Cosigned By Initials Name Provider Type Crys Ferrari, OT Occupational Therapist Occupational Therapy Education Title: PT OT HOMICIDE INVESTIGATOR Therapies (In Progress) Topic: Occupational Therapy (In Progress) Point: ADL training (In Progress) Learning Progress Summary Patient Acceptance, E, NR by at 06/26/20251540 Point: Precautions (In Progress) Learning Progress Summary Patient Acceptance, E, NR by at 06/26/20251540 Point: Body mechanics (In Progress) Learning Progress Summary Patient Acceptance, E, NR by at 06/26/20251540 User Llanes Initials Effective Dates Name Provider Type Discipline 06/26/22 - Crys Ferrari, OT Occupational Therapist OT OT Recommendation and Plan Recommended discharge disposition is based on the functional assessment performed by PT/OT/Speech therapy (as applicable) and may not reflect the medical necessity determined by your provider or services covered by an individual patient's insurance plan or patient resource. Planned Therapy Interventions (OT): activity tolerance training, adaptive equipment training, BADL retraining, functional balance retraining, IADL retraining, occupation/activity based interventions,patient/caregiver education/training, ROM/therapeutic exercise, strengthening exercise, transfer/mobility retraining Therapy Frequency (OT): daily Plan of Care Review Plan of Care Reviewed With: patient Outcome Evaluation: Pt's ADL independence limited d/t decreased functional endurance, LE strength deficits, and balance deficits. Pt would benefit from continued skilled IPOT services to address current functional deficits. Rec SNF at d/c. Time Calculation: Evaluation Complexity (OT) Review Occupational Profile/Medical/Therapy History Complexity: expanded/moderate complexity Assessment, Occupational Performance/Identification of Deficit Complexity: 3-5 performance deficits Clinical Decision Making Complexity (OT): detailed assessment/moderate complexity Overall Complexity of Evaluation (OT): moderate complexity Time Calculation- OT Row Name 06/26/25 1542 Time Calculation- OT Start Time 1434 - OT Received On 06/26/25 - OT Goal Re-Cert Due Date 07/06/25 - Timed Charges 39792 - OT Self Care/Mgmt Minutes 8 -MC Untimed Charges OT Eval/Re-eval Minutes 61 -MC Total Minutes Timed Charges Total Minutes 8 -MC Untimed Charges Total Minutes 61 -MC Total Minutes 69 -MC User Llanes (r) = Recorded By, (t) = Taken By, (c) = Cosigned By Initials Name Provider Type Crys Ferrari OT Occupational Therapist Therapy Charges for Today Code Description Service Date Service Provider Modifiers Qty [id number] OT SELF CARE/MGMT/TRAIN EA 15 MIN 06/26/2025 Crys Ferrari OT GO 1 [id number] -OT EVAL MOD COMPLEXITY 5 06/26/2025 Crys Ferrari OT 1 Crys Ferrari OT 06/26/2025 [1] Patient Active Problem List Diagnosis Acute deep [...] traumatic brain injury Possible meningioma Moderate malnutrition Seizure disorder Adrenal insufficiency Dysphagia Pressure injury of buttock, stage 1 Pressure ulcers of skin of multiple topographic sites Cellulitis of left foot Gangrene History of DVT (deep vein thrombosis) Severe sepsis Hx of migraine headaches Coronary artery disease involving [place] coronary artery of [place] heart without angina pectoris Left leg cellulitis Altered mental status PAD (peripheral artery disease) Wound infection Type 2 diabetes mellitus with diabetic peripheral angiopathy without gangrene, without long-term current use of insulin Mixed hyperlipidemia S/P AKA (above knee amputation), right CHARLIE (acute kidney injury) Type 2 diabetes mellitus, with long-term current use of insulin Arteriovenous fistula, acquired Cellulitis Acute UTI (urinary tract infection) Diarrhea of presumed infectious origin Acute on chronic blood loss anemia BPH without obstruction/lower urinary tract symptoms GERD without esophagitis Bilateral inguinal hernia Gastroenteritis due to norovirus * Case Management/Social Work - Monalisa Reilly RN - 06/26/2025 11:57 AM EDT Discharge Planning Assessment [facility] Patient Name: Trung Pool Today's Date: 06/26/2025 Admit Date: 06/25/2025 Plan: Home, [facility] Discharge Needs Assessment Row Name 06/26/25 1137 Living Environment People in Home alone Current Living Arrangements home Primary Care Provided by self Provides Primary Care For no one Family Caregiver if Needed sibling(s) Family Caregiver Names Zhane Salazar, sister [phone] Quality of Family Relationships helpful;involved;supportive Able to Return to Prior Arrangements yes Transition Planning Patient/Family Anticipates Transition to home with family;home with help/services Patient/Family Anticipated Services at Transition nurse outreach case managerenvironmental sustainability manager Anticipated health plan transportation Discharge Needs Assessment Equipment Currently Used at Home wheelchair, motorized;glucometer;hospital bed Concerns to be Addressed denies needs/concerns at this time Discharge Coordination/Progress Lives in a house in [facility] by himself, can call on his neighbors. Also has a caregiver/aide that is there Wednesday and Wednesday for 3 hours. Needs assistance withADLs. States that he is current with [facility]. Has an advanced directive. Discharge Plan Row Name 06/26/25 1146 [facility]Family in Agreement with Plan yes Plan Comments I spoke with Mr Pool at bedside. Mr [place]. He states that he can call on his neighbors for any assistance if he needs it, and that his neighbor has come over in the past and helped him administer IV antibiotics. He also has an aide that comes over for 3 hours on Wednesday and Wednesday. His house is a one story house and there is a ramp to enter. He is independent with medications, meals, and dressing, however needs assistance with bathing, laundry, housekeeping and shopping. His DME includes a motorized wheelchair, glucometer and hospital bed. He states that he is current with [facility]. He does have an advanced directive. His insurance is [employer], and he does have prescription coverage. His PCP is Gustavo Mehta, and he gets his prescriptions filled at [facility] [place]. At this time he denies any discharge needs. He will need EMS transport back home. Case management will continue to follow. Final Discharge Disposition Code 06 - home with home health care Continued Care and Services - Admitted Since 06/25/2025 No active coordination exists. Selected Continued Care - Prior Encounters Includes continued care and service providers with selected services from prior encounters from 03/27/2025 to 06/26/2025 Discharged on 06/11/2025 Admission date: 06/02/2025 - Discharge disposition: Home- Health Care [facility] Service Provider Services Address Phone Fax Patient Preferred [place] [phone] Expected Discharge Date and Time Expected Discharge Date Expected Discharge Time Jun 27, 2025 Demographic Summary No documentation. Functional Status Row Name 06/26/25 1137 Functional Status Usual Activity Tolerance moderate Current Activity Tolerance fair Functional Status, IADL Medications assistive equipment and person Meal Preparation assistive equipment and person Housekeeping assistive equipment and person Laundry assistive equipment and person Shopping assistive equipment and person Mental Status General Appearance WDL WDL Psychosocial No documentation. Abuse/Neglect No documentation. Legal No documentation. Substance Abuse No documentation. Patient Forms No documentation. Monalisa Reilly RN documented in this encounter Plan of Treatment Scheduled Referrals Name Type Priority Associated Diagnoses Order Schedule Ambulatory Referral to Home Health Outpatient Referral Routine Cellulitis of left lower extremity Ordered: 08/01/2025 documented as of this encounter Procedures Procedure Name Priority Date/Time Associated Diagnosis Comments POCT GLUCOSE FINGERSTICK Routine 025 7:46 AM EST POCT GLUCOSE FINGERSTICK Routine 025 8:09 PM EST POCT GLUCOSE FINGERSTICK Routine 025 4:55 PM EST POCT GLUCOSE FINGERSTICK Routine 025 12:18 PM EST POCT GLUCOSE FINGERSTICK Routine 025 7:30 AM EST POCT GLUCOSE FINGERSTICK Routine 7:42 PM EST POCT GLUCOSE FINGERSTICK Routine 025 4:46 PM EST POCT GLUCOSE FINGERSTICK Routine 025 12:09 PM EST POCT GLUCOSE FINGERSTICK Routine 7:24 AM EST POCT GLUCOSE FINGERSTICK Routine 8:17 PM EST POCT GLUCOSE FINGERSTICK Routine 4:32 PM EST POCT GLUCOSE FINGERSTICK Routine 11:33 AM EST POCT GLUCOSE FINGERSTICK Routine 7:26 AM EST POCT GLUCOSE FINGERSTICK Routine 8:52 PM EST POCT GLUCOSE FINGERSTICK Routine 4:49 PM EST POCT GLUCOSE FINGERSTICK Routine 11:30 AM EST POCT GLUCOSE FINGERSTICK Routine 7:30 AM EST POCT GLUCOSE FINGERSTICK Routine 025 7:[address] HEAD WO CONTRAST STAT 07/28/2025 7 :28 PM EST POCT GLUCOSE FINGERSTICK Routine 025 4:56 PM EST POCT GLUCOSE FINGERSTICK Routine 025 3:53 PM EST POCT GLUCOSE FINGERSTICK Routine 11:49 AM EST POCT GLUCOSE FINGERSTICK Routine 7:24 AM EST POCT GLUCOSE FINGERSTICK Routine 025 8:51 PM EST POCT GLUCOSE FINGERSTICK Routine 025 4:43 PM EST POCT GLUCOSE FINGERSTICK Routine 12:51 PM EST POCT GLUCOSE FINGERSTICK Routine 7:27 AM EST POCT GLUCOSE FINGERSTICK Routine 7:58 PM EST POCT GLUCOSE FINGERSTICK Routine 5:10 PM EST POCT GLUCOSE FINGERSTICK Routine 7:34 AM EST POCT GLUCOSE FINGERSTICK Routine 9:06 PM EST POCT GLUCOSE FINGERSTICK Routine 11:32 AM EST POCT GLUCOSE FINGERSTICK Routine 025 7:26 AM EST BASIC METABOLIC PANEL Timed 07/25/2025 6:17 AM EST POCT GLUCOSE FINGERSTICK Routine 1:25 AM EST POCT GLUCOSE FINGERSTICK Routine 5:43 PM EST POCT GLUCOSE FINGERSTICK Routine 12:18 PM EST ECG 12-LEAD Routine 07/24/2025 10:30 AM EST OSCILLATING POSITIVE EXPIRATORY PRESSURE (OPEP) Routine 07/24/2025 9:31 AM EST POCT GLUCOSE FINGERSTICK Routine 7:49 AM EST BASIC METABOLIC PANEL Routine 07/24/2025 4:03 AM EST OSCILLATING POSITIVE EXPIRATORY PRESSURE (OPEP) Routine 07/23/2025 9:30 PM EST POCT GLUCOSE FINGERSTICK Routine 8:28 PM EST POCT GLUCOSE FINGERSTICK Routine 5:22 PM EST POCT GLUCOSE FINGERSTICK Routine 11:43 AM EST OSCILLATING POSITIVE EXPIRATORY PRESSURE (OPEP) Routine 07/23/2025 9:31 AM EST POCT GLUCOSE FINGERSTICK Routine 8:13 AM EST VANCOMYCIN, RANDOM Routine 07/23/2025 4: 42 AM EST BASIC METABOLIC PANEL Routine 07/23/2025 4:42 AM EST OSCILLATING POSITIVE EXPIRATORY PRESSURE (OPEP) Routine 07/22/2025 9:30 PM EST POCT GLUCOSE FINGERSTICK Routine 7:48 PM EST POCT GLUCOSE FINGERSTICK Routine 7:53 AM EST OSCILLATING POSITIVE EXPIRATORY PRESSURE (OPEP) Routine 07/21/2025 9:30 PM EST POCT GLUCOSE FINGERSTICK Routine 11:43 AM EST OSCILLATING POSITIVE EXPIRATORY PRESSURE (OPEP) Routine 07/21/2025 9:30 AM EST POCT GLUCOSE FINGERSTICK Routine 7:38 AM EST OSCILLATING POSITIVE EXPIRATORY PRESSURE (OPEP) Routine 07/20/2025 9:30 PM EST POCT GLUCOSE FINGERSTICK Routine 4:45 PM EST POCT GLUCOSE FINGERSTICK Routine 12:04 PM EST POCT GLUCOSE FINGERSTICK Routine 7:50 AM EST CBC (NO DIFF) Routine 07/20/2025 5:08 AM EST BASIC METABOLIC PANEL Routine 07/20/2025 5:08 AM EST OSCILLATING POSITIVE EXPIRATORY PRESSURE (OPEP) Routine 07/19/2025 9:30 PM EST POCT GLUCOSE FINGERSTICK Routine 4:21 PM EST POCT GLUCOSE FINGERSTICK Routine 11:30 AM EST OSCILLATING POSITIVE EXPIRATORY PRESSURE (OPEP) Routine 07/19/2025 9:31 AM EST MAGNESIUM Routine 07/19/2025 8:35 AM EST POCT GLUCOSE FINGERSTICK Routine 7:32 AM EST OSCILLATING POSITIVE EXPIRATORY PRESSURE (OPEP) Routine 07/18/2025 9:30 PM EST POCT GLUCOSE FINGERSTICK Routine 7:29 PM EST POCT GLUCOSE FINGERSTICK Routine 4:34 PM EST POCT GLUCOSE FINGERSTICK Routine 11:11 AM EST OSCILLATING POSITIVE EXPIRATORY PRESSURE (OPEP) Routine 07/18/2025 9:31 AM EST MAGNESIUM Routine 07/18/2025 3:37 AM EST VANCOMYCIN, RANDOM Routine 07/18/2025 3: 37 AM EST BASIC METABOLIC PANEL Routine 07/18/2025 3:37 AM EST OSCILLATING POSITIVE EXPIRATORY PRESSURE (OPEP) Routine 07/17/2025 9:30 PM EST POCT GLUCOSE FINGERSTICK Routine 9:15 PM EST POCT GLUCOSE FINGERSTICK Routine 4:13 PM EST POCT GLUCOSE FINGERSTICK Routine 12:31 PM EST OSCILLATING POSITIVE EXPIRATORY PRESSURE (OPEP) Routine 07/17/2025 9:31 AM EST POCT GLUCOSE FINGERSTICK Routine 7:53 AM EST CBC (NO DIFF) Routine 07/17/2025 5:48 AM EST MAGNESIUM Routine 07/17/2025 5:48 AM EST BASIC METABOLIC PANEL Routine 07/17/2025 5:48 AM EST OSCILLATING POSITIVE EXPIRATORY PRESSURE (OPEP) Routine 07/16/2025 9:30 PM EST POCT GLUCOSE FINGERSTICK Routine 8:02 PM EST POCT GLUCOSE FINGERSTICK Routine 4:58 PM EST POCT GLUCOSE FINGERSTICK Routine 11:25 AM EST OSCILLATING POSITIVE EXPIRATORY PRESSURE (OPEP) Routine 07/16/2025 9:31 AM EST POCT GLUCOSE FINGERSTICK Routine 7:50 AM EST CBC (NO DIFF) Routine 07/16/2025 4:47 AM EST MAGNESIUM Routine 07/16/2025 4:47 AM EST BASIC METABOLIC PANEL Routine 07/16/2025 4:47 AM EST OSCILLATING POSITIVE EXPIRATORY PRESSURE (OPEP) Routine 07/15/2025 9:30 PM EST POCT GLUCOSE FINGERSTICK Routine 7:34 PM EST POCT GLUCOSE FINGERSTICK Routine 4:24 PM EST POCT GLUCOSE FINGERSTICK Routine 11:11 AM EST OSCILLATING POSITIVE EXPIRATORY PRESSURE (OPEP) Routine 07/15/2025 9:30 AM EST POCT GLUCOSE FINGERSTICK Routine 7:20 AM EST ECG 12-LEAD Routine 07/15/2025 5:26 AM EST CBC (NO DIFF) Routine 07/15/2025 4:32 AM EST MAGNESIUM Routine 07/15/2025 4:32 AM EST BASIC METABOLIC PANEL Routine 07/15/2025 4:32 AM EST OSCILLATING POSITIVE EXPIRATORY PRESSURE (OPEP) Routine 07/14/2025 9:30 PM EDT POCT GLUCOSE FINGERSTICK Routine 7:32 PM EDT WOUND OSTOMY EVAL AND TREAT Routine 07/14/2025 4:47 PM EDT POCT GLUCOSE FINGERSTICK Routine 4:04 PM EDT POCT GLUCOSE FINGERSTICK Routine 3:20 PM EDT BLOOD GAS, VENOUS W/CO-OXIMETRY Routine 07/14/2025 3:17 PM EDT POCT GLUCOSE FINGERSTICK Routine 2:48 PM EDT POCT GLUCOSE FINGERSTICK Routine 11:08 AM EDT OSCILLATING POSITIVE EXPIRATORY PRESSURE (OPEP) Routine 07/14/2025 9:30 AM EDT POCT GLUCOSE FINGERSTICK Routine 7:33 AM EDT BLOOD GAS, VENOUS W/CO-OXIMETRY Routine 07/14/2025 6:01 AM EDT POCT GLUCOSE FINGERSTICK Routine 5:35 AM EDT POCT GLUCOSE FINGERSTICK Routine 4:40 AM EDT LACTIC ACID, PLASMA STAT 07/14/2025 4 :26 AM EDT CBC (NO DIFF) Routine 07/14/2025 4:25 AM EDT MAGNESIUM Routine 07/14/2025 4:25 AM EDT VANCOMYCIN, RANDOM Routine 07/14/2025 4: 25 AM EDT BASIC METABOLIC PANEL Routine 07/14/2025 4:25 AM EDT URINALYSIS, MICROSCOPIC ONLY Routine 07/14/2025 12:53 AM EDT URINALYSIS W/ CULTURE IF INDICATED Routine 07/14/2025 12:53 AM EDT URINE CULTURE Routine 07/14/2025 12:53 AM EDT OSCILLATING POSITIVE EXPIRATORY PRESSURE (OPEP) Routine 07/13/2025 9:30 PM EDT POCT GLUCOSE FINGERSTICK Routine 9:01 PM EDT POTASSIUM Routine 07/13/2025 6:48 PM EDT POCT GLUCOSE FINGERSTICK Routine 4:33 PM EDT POCT GLUCOSE FINGERSTICK Routine 11:50 AM EDT OSCILLATING POSITIVE EXPIRATORY PRESSURE (OPEP) Routine 07/13/2025 9:30 AM EDT CBC (NO DIFF) Routine 07/13/2025 8:08 AM EDT MAGNESIUM Routine 07/13/2025 8:08 AM EDT POCT GLUCOSE FINGERSTICK Routine 025 7:22 AM EDT BASIC METABOLIC PANEL Timed 07/12/2025 11:33 PM EDT OSCILLATING POSITIVE EXPIRATORY PRESSURE (OPEP) Routine 07/12/2025 9:30 PM EDT POCT GLUCOSE FINGERSTICK Routine 025 8:19 PM EDT POCT GLUCOSE FINGERSTICK Routine 025 4:05 PM EDT BASIC METABOLIC PANEL Timed 07/12/2025 3:35 PM EDT POCT GLUCOSE FINGERSTICK Routine 025 11:56 AM EDT OSCILLATING POSITIVE EXPIRATORY PRESSURE (OPEP) Routine 07/12/2025 9:31 AM EDT POCT GLUCOSE FINGERSTICK Routine 025 7:31 AM EDT ECG 12-LEAD STAT 07/12/2025 6:30 AM EDT CBC (NO DIFF) Routine 07/12/2025 4:54 AM EDT MAGNESIUM Routine 07/12/2025 4:54 AM EDT BASIC METABOLIC PANEL Routine 07/12/2025 4:54 AM EDT SCANNED - TELEMETRY 07/11/2025 9 :50 PM EDT OSCILLATING POSITIVE EXPIRATORY PRESSURE (OPEP) Routine 07/11/2025 9:30 PM EDT POCT GLUCOSE FINGERSTICK Routine 9:09 PM EDT POCT GLUCOSE FINGERSTICK Routine 4:47 PM EDT POCT GLUCOSE FINGERSTICK Routine 11:21 AM EDT POTASSIUM Timed 07/11/2025 11:10 AM EDT OSCILLATING POSITIVE EXPIRATORY PRESSURE (OPEP) Routine 07/11/2025 9:31 AM EDT POCT GLUCOSE FINGERSTICK Routine 7:15 AM EDT ECG 12-LEAD STAT 07/11/2025 5:52 AM EDT CBC (NO DIFF) Routine 07/11/2025 4:23 AM EDT MAGNESIUM Routine 07/11/2025 4:23 AM EDT VANCOMYCIN, RANDOM Routine 07/11/2025 4: 23 AM EDT BASIC METABOLIC PANEL Routine 07/11/2025 4:23 AM EDT OSCILLATING POSITIVE EXPIRATORY PRESSURE (OPEP) Routine 07/10/2025 9:30 PM EDT POCT GLUCOSE FINGERSTICK Routine 7:39 PM EDT SCANNED - TELEMETRY 07/10/2025 7 :34 PM EDT POCT GLUCOSE FINGERSTICK Routine 4:49 PM EDT POCT GLUCOSE FINGERSTICK Routine 11:53 AM EDT OSCILLATING POSITIVE EXPIRATORY PRESSURE (OPEP) Routine 07/10/2025 9:31 AM EDT POCT GLUCOSE FINGERSTICK Routine 7:27 AM EDT OSCILLATING POSITIVE EXPIRATORY PRESSURE (OPEP) Routine 07/09/2025 9:30 PM EDT POCT GLUCOSE FINGERSTICK Routine 7:41 PM EDT POCT GLUCOSE FINGERSTICK Routine 4:39 PM EDT POCT GLUCOSE FINGERSTICK Routine 11:12 AM EDT OSCILLATING POSITIVE EXPIRATORY PRESSURE (OPEP) Routine 07/09/2025 9:31 AM EDT POCT GLUCOSE FINGERSTICK Routine 8:02 AM EDT POCT GLUCOSE FINGERSTICK Routine 7:46 AM EDT POCT GLUCOSE FINGERSTICK Routine 7:39 AM EDT POCT GLUCOSE FINGERSTICK Routine 7:15 AM EDT CBC (NO DIFF) Timed 07/09/2025 7:12 AM EDT MAGNESIUM Routine 07/09/2025 7:12 AM EDT VANCOMYCIN, TROUGH Timed 07/09/2025 7: 12 AM EDT BASIC METABOLIC PANEL Timed 07/09/2025 7:12 AM EDT OSCILLATING POSITIVE EXPIRATORY PRESSURE (OPEP) Routine 07/08/2025 9:30 PM EDT POCT GLUCOSE FINGERSTICK Routine 8:39 PM EDT POCT GLUCOSE FINGERSTICK Routine 025 4:38 PM EDT BASIC METABOLIC PANEL STAT 07/08/2025 2:18 PM EDT POCT GLUCOSE FINGERSTICK Routine 025 12:12 PM EDT OSCILLATING POSITIVE EXPIRATORY PRESSURE (OPEP) Routine 07/08/2025 9:30 AM EDT POCT GLUCOSE FINGERSTICK Routine 025 7:50 AM EDT CBC (NO DIFF) Routine 07/08/2025 5:42 AM EDT MAGNESIUM Routine 07/08/2025 5:42 AM EDT BASIC METABOLIC PANEL Routine 07/08/2025 5:42 AM EDT OSCILLATING POSITIVE EXPIRATORY PRESSURE (OPEP) Routine 07/07/2025 9:30 PM EDT POCT GLUCOSE FINGERSTICK Routine 7:12 PM EDT POCT GLUCOSE FINGERSTICK Routine 4:30 PM EDT POCT GLUCOSE FINGERSTICK Routine 11:50 AM EDT OSCILLATING POSITIVE EXPIRATORY PRESSURE (OPEP) Routine 07/07/2025 9:30 AM EDT POCT GLUCOSE FINGERSTICK Routine 7:34 AM EDT CBC (NO DIFF) Routine 07/07/2025 3:43 AM EDT MAGNESIUM Routine 07/07/2025 3:43 AM EDT BASIC METABOLIC PANEL Routine 07/07/2025 3:43 AM EDT OSCILLATING POSITIVE EXPIRATORY PRESSURE (OPEP) Routine 07/06/2025 9:30 PM EDT POCT GLUCOSE FINGERSTICK Routine 7:31 PM EDT POCT GLUCOSE FINGERSTICK Routine 025 5:19 PM EDT POCT GLUCOSE FINGERSTICK Routine 025 4:27 PM EDT POCT GLUCOSE FINGERSTICK Routine 3:26 PM EDT ECG 12-LEAD STAT 07/06/2025 3:14 PM EDT CBC (NO DIFF) Routine 07/06/2025 12:46 PM EDT MAGNESIUM Routine 07/06/2025 12:46 PM EDT BASIC METABOLIC PANEL Routine 07/06/2025 12:46 PM EDT POCT GLUCOSE FINGERSTICK Routine 11:37 AM EDT OSCILLATING POSITIVE EXPIRATORY PRESSURE (OPEP) Routine 07/06/2025 9:30 AM EDT POCT GLUCOSE FINGERSTICK Routine 7:19 AM EDT OSCILLATING POSITIVE EXPIRATORY PRESSURE (OPEP) Routine 07/05/2025 9:30 PM EDT POCT GLUCOSE FINGERSTICK Routine 025 7:54 PM EDT POCT GLUCOSE FINGERSTICK Routine 025 4:45 PM EDT POCT GLUCOSE FINGERSTICK Routine 025 12:26 PM EDT OSCILLATING POSITIVE EXPIRATORY PRESSURE (OPEP) Routine 07/05/2025 9:31 AM EDT POCT GLUCOSE FINGERSTICK Routine 025 7:25 AM EDT BASIC METABOLIC PANEL Routine 07/05/2025 4:34 AM EDT OSCILLATING POSITIVE EXPIRATORY PRESSURE (OPEP) Routine 07/04/2025 9:30 PM EDT POCT GLUCOSE FINGERSTICK Routine 025 8:13 PM EDT POCT GLUCOSE FINGERSTICK Routine 025 4:46 PM EDT POCT GLUCOSE FINGERSTICK Routine 12:03 PM EDT OSCILLATING POSITIVE EXPIRATORY PRESSURE (OPEP) Routine 07/04/2025 9:31 AM EDT POCT GLUCOSE FINGERSTICK Routine 7:32 AM EDT EEG AWAKE OR DROWSY PORTABLE Routine 07/04/2025 7:10 AM EDT POTASSIUM STAT 07/04/2025 6:15 AM EDT ECG 12-LEAD Routine 07/04/2025 5:38 AM EDT CBC WITH AUTO DIFFERENTIAL STAT 07/04/2025 3:47 AM EDT CBC AND DIFFERENTIAL STAT 07/04/2025 3:47 AM EDT VANCOMYCIN, RANDOM Routine 07/04/2025 3: 47 AM EDT BASIC METABOLIC PANEL STAT 07/04/2025 3:47 AM EDT WOUND OSTOMY EVAL AND TREAT Routine 07/03/2025 9:46 PM EDT OSCILLATING POSITIVE EXPIRATORY PRESSURE (OPEP) Routine 07/03/2025 9:30 PM EDT POCT GLUCOSE FINGERSTICK Routine 025 9:[address] HEAD WO CONTRAST STAT 07/03/2025 9 :00 PM EDT POCT GLUCOSE FINGERSTICK Routine 025 8:13 PM EDT BLOOD GAS, ARTERIAL W/CO-OXIMETRY Routine 07/03/2025 7:00 PM EDT POCT GLUCOSE FINGERSTICK Routine 025 5:21 PM EDT XR [place] OR PROCEDURE Routine 07/03/2025 3:44 PM EDT INCISION AND DRAINAGE LOWER EXTREMITY 07/03/2025 2:02 PM EDT PAD (peripheral artery disease) Wound infection AORTOGRAM WITH OR WITHOUT RUNOFFS POSSIBLE STENT 07/03/2025 2:02 PM EDT PAD (peripheral artery disease) Wound infection POCT GLUCOSE FINGERSTICK Routine 11:30 AM EDT POCT GLUCOSE FINGERSTICK Routine 11:28 AM EDT OSCILLATING POSITIVE EXPIRATORY PRESSURE (OPEP) Routine 07/03/2025 9:31 AM EDT POCT GLUCOSE FINGERSTICK Routine 7:43 AM EDT SCANNED - TELEMETRY 07/03/2025 4 :55 AM EDT OSCILLATING POSITIVE EXPIRATORY PRESSURE (OPEP) Routine 07/02/2025 9:30 PM EDT POCT GLUCOSE FINGERSTICK Routine 9:23 PM EDT POCT GLUCOSE FINGERSTICK Routine 4:44 PM EDT POCT GLUCOSE FINGERSTICK Routine 11:22 AM EDT OSCILLATING POSITIVE EXPIRATORY PRESSURE (OPEP) Routine 07/02/2025 9:31 AM EDT POCT GLUCOSE FINGERSTICK Routine 7:39 AM EDT CBC (NO DIFF) Routine 07/02/2025 3:59 AM EDT BASIC METABOLIC PANEL Routine 07/02/2025 3:59 AM EDT OSCILLATING POSITIVE EXPIRATORY PRESSURE (OPEP) Routine 07/01/2025 9:30 PM EDT SCANNED - TELEMETRY 07/01/2025 9 :00 PM EDT POCT GLUCOSE FINGERSTICK Routine 8:52 PM EDT SCANNED - TELEMETRY 07/01/2025 8 :01 PM EDT POCT GLUCOSE FINGERSTICK Routine 025 4:23 PM EDT POCT GLUCOSE FINGERSTICK Routine 11:37 AM EDT OSCILLATING POSITIVE EXPIRATORY PRESSURE (OPEP) Routine 07/01/2025 9:30 AM EDT POCT GLUCOSE FINGERSTICK Routine 7:31 AM EDT BASIC METABOLIC PANEL Routine 07/01/2025 3:29 AM EDT OSCILLATING POSITIVE EXPIRATORY PRESSURE (OPEP) Routine 06/30/2025 9:30 PM EDT POCT GLUCOSE FINGERSTICK Routine 7:31 PM EDT POCT GLUCOSE FINGERSTICK Routine 4:29 PM EDT POCT GLUCOSE FINGERSTICK Routine 11:52 AM EDT OSCILLATING POSITIVE EXPIRATORY PRESSURE (OPEP) Routine 06/30/2025 9:30 AM EDT POCT GLUCOSE FINGERSTICK Routine 025 7:42 AM EDT CBC WITH AUTO DIFFERENTIAL Routine 06/30/2025 4:29 AM EDT CBC AND DIFFERENTIAL Routine 06/30/2025 4:29 AM EDT VANCOMYCIN, RANDOM Routine 06/30/2025 4: 29 AM EDT BASIC METABOLIC PANEL Routine 06/30/2025 4:29 AM EDT OSCILLATING POSITIVE EXPIRATORY PRESSURE (OPEP) Routine 06/29/2025 9:30 PM EDT POCT GLUCOSE FINGERSTICK Routine 8:06 PM EDT POCT GLUCOSE FINGERSTICK Routine 10/17/2 025 4:43 PM EDT POCT GLUCOSE FINGERSTICK Routine 11:56 AM EDT POCT GLUCOSE FINGERSTICK Routine 7:30 AM EDT BASIC METABOLIC PANEL Routine 06/29/2025 6:24 AM EDT CBC WITH AUTO DIFFERENTIAL Routine 06/29/2025 6:23 AM EDT CBC AND DIFFERENTIAL Routine 06/29/2025 6:23 AM EDT OSCILLATING POSITIVE EXPIRATORY PRESSURE (OPEP) Routine 06/28/2025 9:30 PM EDT POCT GLUCOSE FINGERSTICK Routine 8:17 PM EDT POCT GLUCOSE FINGERSTICK Routine 5:01 PM EDT POCT GLUCOSE FINGERSTICK Routine 11:44 AM EDT OSCILLATING POSITIVE EXPIRATORY PRESSURE (OPEP) Routine 06/28/2025 9:31 AM EDT POCT GLUCOSE FINGERSTICK Routine 7:39 AM EDT VANCOMYCIN, RANDOM Routine 06/28/2025 4: 00 AM EDT BASIC METABOLIC PANEL Routine 06/28/2025 4:00 AM EDT OSCILLATING POSITIVE EXPIRATORY PRESSURE (OPEP) Routine 06/27/2025 9:30 PM EDT POCT GLUCOSE FINGERSTICK Routine 8:24 PM EDT POCT GLUCOSE FINGERSTICK Routine 025 4:18 PM EDT ECG 12-LEAD Routine 06/27/2025 3:32 PM EDT POCT GLUCOSE FINGERSTICK Routine 11:10 AM EDT OSCILLATING POSITIVE EXPIRATORY PRESSURE (OPEP) Routine 06/27/2025 9:31 AM EDT POCT GLUCOSE FINGERSTICK Routine 7:19 AM EDT CBC WITH AUTO DIFFERENTIAL Routine 06/27/2025 4:00 AM EDT CBC AND DIFFERENTIAL Routine 06/27/2025 4:00 AM EDT MAGNESIUM Routine 06/27/2025 4:00 AM EDT BASIC METABOLIC PANEL Routine 06/27/2025 4:00 AM EDT OSCILLATING POSITIVE EXPIRATORY PRESSURE (OPEP) Routine 06/26/2025 9:30 PM EDT POCT GLUCOSE FINGERSTICK Routine 9:07 PM EDT MRI FOOT LEFT WO CONTRAST Routine 06/26/2025 8:15 PM EDT POCT GLUCOSE FINGERSTICK Routine 4:42 PM EDT POCT GLUCOSE FINGERSTICK Routine 11:45 AM EDT DUPLEX LOWER EXTREMITY ART/GRAFTS LEFT CAR - COR/EVANGELISTA/MAD Routine 06/26/2025 9:36 AM EDT DUPLEX VENOUS LOWER EXTREMITY LEFT CAR Routine 06/26/2025 9:34 AM EDT OSCILLATING POSITIVE EXPIRATORY PRESSURE (OPEP) Routine 06/26/2025 9:31 AM EDT TSH RFX ON ABNORMAL TO FREE T4 Routine 06/26/2025 7:41 AM EDT IRON PROFILE Routine 06/26/2025 7:41 AM EDT PROTIME-INR Routine 06/26/2025 7:41 AM EDT TYPE AND SCREEN STAT 06/26/2025 7:41 AM EDT PHOSPHORUS Routine 06/26/2025 7:41 AM EDT MAGNESIUM Routine 06/26/2025 7:41 AM EDT LACTIC ACID, PLASMA Routine 06/26/2025 7 :41 AM EDT HEMOGLOBIN A1C Routine 06/26/2025 7:41 AM EDT FERRITIN Routine 06/26/2025 7:41 AM EDT VITAMIN B12 Routine 06/26/2025 7:41 AM EDT CK Routine 06/26/2025 7:41 AM EDT LIPID PANEL Routine 06/26/2025 7:41 AM EDT COMPREHENSIVE METABOLIC PANEL Routine 06/26/2025 7:41 AM EDT CBC WITH AUTO DIFFERENTIAL Routine 06/26/2025 7:40 AM EDT POCT GLUCOSE FINGERSTICK Routine 025 5:[address] ANGIOGRAM LOWER EXTREMITY LEFT W WO CONTRAST STAT 06/26/2025 4:58 AM EDT XR CHEST 1 VW STAT 06/26/2025 4:09 AM EDT ECG 12-LEAD STAT 06/26/2025 1:33 AM EDT POCT GLUCOSE FINGERSTICK Routine 025 12:51 AM EDT GASTROINTESTINAL PANEL, PCR (PREFERRED) DOES NOT INCLUDE CDIFF STAT 06/26/2025 12:46 AM EDT CLOSTRIDIOIDES DIFFICILE TOXIN AG (REFLEX ONLY) STAT 06/26/2025 12:46 AM EDT CLOSTRIDIOIDES DIFFICILE TOXIN STAT 06/26/2025 12:46 AM EDT MRSA DNA PROBE Routine 06/26/2025 12:46 AM EDT CLOSTRIDIOIDES DIFFICILE TOXIN, PCR STAT 06/26/2025 12:46 AM EDT WOUND OSTOMY EVAL AND TREAT Routine 06/25/2025 11:14 PM EDT OSCILLATING POSITIVE EXPIRATORY PRESSURE (OPEP) Routine 06/25/2025 11:10 PM EDT BLOOD CULTURE ID Routine 06/25/2025 8:30 PM EDT BLOOD CULTURE STAT 06/25/2025 8:30 PM EDT URINALYSIS, MICROSCOPIC ONLY STAT 06/25/2025 8:01 PM EDT URINALYSIS W/ CULTURE IF INDICATED STAT 06/25/2025 8:01 PM EDT URINE CULTURE STAT 06/25/2025 8:[address] ABDOMEN PELVIS W CONTRAST STAT 06/25/2025 7:36 PM EDT XR FOOT 3+ VW LEFT STAT 06/25/2025 6: 50 PM EDT SCANNED - TELEMETRY 06/25/2025 6 :21 PM EDT BLOOD CULTURE STAT 06/25/2025 6:20 PM EDT WOUND CULTURE STAT 06/25/2025 6:18 PM EDT PROCALCITONIN STAT 06/25/2025 6:17 PM EDT CBC WITH AUTO DIFFERENTIAL STAT 06/25/2025 6:17 PM EDT CBC AND DIFFERENTIAL STAT 06/25/2025 6:17 PM EDT C-REACTIVE PROTEIN STAT 06/25/2025 6: 17 PM EDT LACTIC ACID, PLASMA STAT 06/25/2025 6 :17 PM EDT COMPREHENSIVE METABOLIC PANEL STAT 06/25/2025 6:17 PM EDT documented in this encounter Results * (ABNORMAL) POC Glucose Once (08/02/2025 7:46 AM EST) Glucose 136(H) 70 - 130 mg/dL 08/02/2025 8:00 AM EST [facility] Comment:Serial Number: [id number]: [id number] Blood 08/02/2025 7:46 AM EST 08/02/2025 8:00 AM EST [employer] II, DO POINT OF CARE TEST ORDERA BLES Final Result Performing Organization Address [facility] Co de Phone Number [facility]
[address] [place] [address], * (ABNORMAL) POC Glucose Once (08/01/2025 8:09 PM EST) Glucose 139(H) 70 - 130 mg/dL 08/01/2025 8:11 PM EST [facility] Comment:Serial Number: [id number]: [id number] Blood 08/01/2025 8:09 PM EST 08/01/2025 8:11 PM EST [employer] Carolina M Arie II, DO POINT OF CARE TEST ORDERA BLES Final Result Performing Organization Address City/[facility]/ZIP Co de Phone Number [facility]
[address] [place] [address], [place] [phone] * (ABNORMAL) POC Glucose Once (08/01/2025 4:55 PM EST) Glucose 190(H) 70 - 130 mg/dL 08/01/2025 4:58 PM EST [facility] Comment:Serial Number: [id number]: [id number] Blood 08/01/2025 4:55 PM EST 08/01/2025 4:58 PM EST Carolina Cravenon II, DO POINT OF CARE TEST ORDERA BLES Final Result Performing Organization Address City/[facility]/ZIP Co de Phone Number [facility]
[address] [place] [address], * POC Glucose Once (08/01/2025 12:18 PM EST) Glucose 130 70 - 130 mg/dL 08/01/2025 12:21 PM EST [facility] Comment:Serial Number: [id number]: [id number] Blood 08/01/2025 12:1 8 PM EST 08/01/2025 12:21 PM EST Carolina Sargent II, DO POINT OF CARE TEST ORDERA BLES Final Result [facility]
[address] [place] [address], * (ABNORMAL) POC Glucose Once (08/01/2025 7:30 AM EST) Glucose 134(H) 70 - 130 mg/dL 08/01/2025 7:32 AM EST [facility] Comment:Serial Number: [id number]: [id number] Blood 08/01/2025 7:30 AM EST 08/01/2025 7:32 AM EST Carolina Sargent II, DO POINT OF CARE TEST ORDERA BLES Final Result Performing Organization Address City/[facility]/ZIP Co de Phone Number [facility]
[address] [place] [address], * (ABNORMAL) POC Glucose Once (07/31/2025 7:42 PM EST) Glucose 168(H) 70 - 130 mg/dL 07/31/2025 7:45 PM EST [facility] Comment:Serial Number: [id number]: [id number] Blood 07/31/2025 7:42 PM EST 07/31/2025 7:45 PM EST Carolina Sargent II, DO POINT OF CARE TEST ORDERA BLES Final Result Performing Organization Address [facility] Co de Phone Number [facility]
[address] [place] [address], * (ABNORMAL) POC Glucose Once (07/31/2025 4:46 PM EST) Glucose 156(H) 70 - 130 mg/dL 07/31/2025 4:48 PM EST [facility] Comment:Serial Number: [id number]: [id number] Blood 07/31/2025 4:46 PM EST 07/31/2025 4:48 PM EST Carolina Sargent II, DO POINT OF CARE TEST ORDERA BLES Final Result Performing Organization Address City/[facility] Co de Phone Number [facility]
[address] [place] [address], * (ABNORMAL) POC Glucose Once (07/31/2025 12:09 PM EST) Glucose 140(H) 70 - 130 mg/dL 07/31/2025 12:17 PM EST [facility] Comment:Serial Number: [id number]: [id number] Blood 07/31/2025 12:0 9 PM EST 07/31/2025 12:17 PM EST Carolinalatoya Villarrealtton II, DO POINT OF CARE TEST ORDERA BLES Final Result Performing Organization Address City/[facility]/ZIP Co de Phone Number [facility]
[address] [place] [address], * POC Glucose Once (07/31/2025 7:24 AM EST) Glucose 116 70 - 130 mg/dL 07/31/2025 7:26 AM EST [facility] Comment:Serial Number: [id number]: [id number] Blood 07/31/2025 7:24 AM EST 07/31/2025 7:26 AM EST Carolina Sargent II, DO POINT OF CARE TEST ORDERA BLES Final Result Performing Organization Address [facility] Co de Phone Number [facility]
[address] [place] [address], * (ABNORMAL) POC Glucose Once (07/30/2025 8:17 PM EST) Glucose 199(H) 70 - 130 mg/dL 07/30/2025 8:19 PM EST [facility] Comment:Serial Number: [id number]: [id number] Blood 07/30/2025 8:17 PM EST 07/30/2025 8:19 PM EST Carolina Cravenon II, DO POINT OF CARE TEST ORDERA BLES Final Result Performing Organization Address City/[facility] Co de Phone Number [facility]
[address] [place] [address], * (ABNORMAL) POC Glucose Once (07/30/2025 4:32 PM EST) Glucose 134(H) 70 - 130 mg/dL 07/30/2025 4:35 PM EST [facility] Comment:Serial Number: [id number]: [id number] Blood 07/30/2025 4:32 PM EST 07/30/2025 4:35 PM EST Carolina M Arie II, DO POINT OF CARE TEST ORDERA BLES Final Result Performing Organization Address City/[facility]/ZIP Co de Phone Number [facility]
[address] [place] [address], * (ABNORMAL) POC Glucose Once (07/30/2025 11:33 AM EST) Glucose 145(H) 70 - 130 mg/dL 07/30/2025 11:37 AM EST [facility] Comment:Serial Number: [id number]: [id number] Blood 07/30/2025 11:3 3 AM EST 07/30/2025 11:37 AM EST Carolina Sargent II, DO POINT OF CARE TEST ORDERA BLES Final Result Performing Organization Address City/[facility]/ZIP Co de Phone Number [facility]
[address] [place] [address], * (ABNORMAL) POC Glucose Once (07/30/2025 7:26 AM EST) Glucose 140(H) 70 - 130 mg/dL 07/30/2025 7:29 AM EST [facility] Comment:Serial Number: [id number]: [id number] Blood 07/30/2025 7:26 AM EST 07/30/2025 7:29 AM EST Carolina Sargent II, DO POINT OF CARE TEST ORDERA BLES Final Result Performing Organization Address [facility] de Phone Number [facility]
[address] [place] [address], * POC Glucose Once (07/29/2025 8:52 PM EST) Glucose 121 70 - 130 mg/dL 07/29/2025 8:54 PM EST [facility] Comment:Serial Number: [id number]: [id number] Blood 07/29/2025 8:52 PM EST 07/29/2025 8:54 PM EST Mart Ridley MD POINT OF CARE TEST ORDERABLES Final Result Performing Organization Address [facility] de Phone Number [facility]
[address] [place] [address], * (ABNORMAL) POC Glucose Once (07/29/2025 4:49 PM EST) Glucose 158(H) 70 - 130 mg/dL 07/29/2025 4:51 PM EST [facility] Comment:Serial Number: [id number]: [id number] Blood 07/29/2025 4:49 PM EST 07/29/2025 4:51 PM EST us Mart Ridley MD POINT OF CARE TEST ORDERABLES Final Result Performing Organization Address [facility] Co de Phone Number [facility]
[address] [place] [address], * (ABNORMAL) POC Glucose Once (07/29/2025 11:30 AM EST) Glucose 148(H) 70 - 130 mg/dL 07/29/2025 11:33 AM EST [facility] Comment:Serial Number: [id number]: [id number] Blood 07/29/2025 11:3 0 AM EST 07/29/2025 11:33 AM EST us Mart Ridley MD POINT OF CARE TEST ORDERABLES Final Result Performing Organization Address [facility] de Phone Number [facility]
[address] [place] [address], [place] [phone] * (ABNORMAL) POC Glucose Once (07/29/2025 7:30 AM EST) Glucose 168(H) 70 - 130 mg/dL 07/29/2025 7:32 AM EST [facility] Comment:Serial Number: [id number]: [id number] Blood 07/29/2025 7:30 AM EST 07/29/2025 7:32 AM EST us Mart Ridley MD POINT OF CARE TEST ORDERABLES Final Result Performing Organization Address [facility] Co de Phone Number [facility]
[address] [place] [address], [place] [phone] * (ABNORMAL) POC Glucose Once (07/28/2025 7:49 PM EST) Glucose 139(H) 70 - 130 mg/dL 07/28/2025 7:51 PM EST [facility] Comment:Serial Number: [id number]: [id number] Blood 07/28/2025 7:49 PM EST 07/28/2025 7:51 PM EST us Mart Ridley MD POINT OF CARE TEST ORDERABLES Final Result Performing Organization Address [facility] Co de Phone Number [facility]
[address] [place] [address], [place] [phone] * CT Head Without Contrast (07/28/2025 7:28 PM EST) Anatomical Region Laterality Modality Head N/A Computed Tomogra phy 07/28/2025 7:42 PM EST Impressions 07/28/2025 7:43 PM EST Impression: No acute intracranial pathology. Electronically Signed: Feliciano Garcia MD 07/28/2025 7:43 PM EST Workstation ID: [id number] 07/28/2025 7:[address] HEAD WO CONTRAST Date of Exam: 07/28/2025 7:18 PM EST Indication: fall, hit head. Comparison: 07/03/2025 Technique: Axial CT images were obtained of the head without contrast administration. Automated exposure control and iterative construction methods were used. Findings: No intracranial hemorrhage. Gutierrez-white matter differentiation is maintained without evidence of an acute infarction. Multiple foci of decreased attenuation are present within the subcortical, deep cerebral, and periventricular white matter consistent with chronic small vessel/microangiopathic ischemic changes. No extra-axial mass or collection. The ventricles and sulci are prominent commensurate with involutional changes. The posterior fossa appears grossly normal. Sellar and suprasellar structures are normal. Orbital and periorbital soft tissues are normal. The paranasal sinuses, ethmoid air cells, and mastoid air cells are aerated. The bony calvarium is intact. Procedure Note Feliciano Garcia MD - 07/28/2025 CT HEAD WO CONTRAST Date of Exam: 07/28/2025 7:18 PM EST Indication: fall, hit head. Comparison: 07/03/2025 Technique: Axial CT images were obtained of the head without contrastadministration. Automated exposure control and iterative constructionmethods were used. Findings: No intracranial hemorrhage. Gutierrez-white matter differentiation ismaintained without evidence of an acute infarction. Multiple foci ofdecreased attenuation are present within the subcortical, deep cerebral,and periventricular white matter consistent with chronic small vessel/microangiopathic ischemic changes. Noextra- axial mass or collection. The ventricles and sulci are prominentcommensurate with involutional changes. The posterior fossa appearsgrossly normal. Sellar and suprasellar structures are normal. Orbital and periorbital soft tissues are normal. The paranasal sinuses,ethmoid air cells, and mastoid air cells are aerated. The bony calvariumis intact. IMPRESSION: Impression: No acute intracranial pathology. Electronically Signed: Feliciano Garcia MD 07/28/2025 7:43 PM EST Workstation ID: [id number] us Chinyere Hensley DIABETES NURSE IMG CT ORDERABLES Final Res ult * (ABNORMAL) POC Glucose Once (07/28/2025 4:56 PM EST) Glucose 224(H) 70 - 130 mg/dL 07/28/2025 4:58 PM EST [facility] Comment:Serial Number: [id number]: [id number] Blood 07/28/2025 4:56 PM EST 07/28/2025 4:58 PM EST us Mart Ridley MD POINT OF CARE TEST ORDERABLES Final Result Performing Organization Address [facility] de Phone Number [facility]
[address] [place] [address], * (ABNORMAL) POC Glucose Once (07/28/2025 3:53 PM EST) Glucose 197(H) 70 - 130 mg/dL 07/28/2025 3:56 PM EST [facility] Comment:Serial Number: [id number]: [id number] Blood 07/28/2025 3:53 PM EST 07/28/2025 3:56 PM EST us Mart Ridley MD POINT OF CARE TEST ORDERABLES Final Result Performing Organization Address [facility] de Phone Number [facility]
[address] [place] [address], * (ABNORMAL) POC Glucose Once (07/28/2025 11:49 AM EST) Glucose 138(H) 70 - 130 mg/dL 07/28/2025 11:51 AM EST [facility] Comment:Serial Number: [id number]: [id number] Blood 07/28/2025 11:4 9 AM EST 07/28/2025 11:51 AM EST us Mart Ridley MD POINT OF CARE TEST ORDERABLES Final Result Performing Organization Address [facility] de Phone Number [facility]
[address] [place] [address], * POC Glucose Once (07/28/2025 7:24 AM EST) Glucose 120 70 - 130 mg/dL 07/28/2025 7:26 AM EST [facility] Comment:Serial Number: [id number]: [id number] Blood 07/28/2025 7:24 AM EST 07/28/2025 7:26 AM EST us Mart Ridley MD POINT OF CARE TEST ORDERABLES Final Result Performing Organization Address [facility] de Phone Number [facility]
[address] [place] [address], * (ABNORMAL) POC Glucose Once (07/27/2025 8:51 PM EST) Glucose 173(H) 70 - 130 mg/dL 07/27/2025 8:56 PM EST [facility] Comment:Serial Number: [id number]: [id number] Blood 07/27/2025 8:51 PM EST 07/27/2025 8:56 PM EST us Mart Ridley MD POINT OF CARE TEST ORDERABLES Final Result Performing Organization Address [facility] Co de Phone Number [facility]
[address] [place] [address], [place] [phone] * (ABNORMAL) POC Glucose Once (07/27/2025 4:43 PM EST) Glucose 190(H) 70 - 130 mg/dL 07/27/2025 4:45 PM EST [facility] Comment:Serial Number: [id number]: [id number] Blood 07/27/2025 4:43 PM EST 07/27/2025 4:45 PM EST us Mart Ridley MD POINT OF CARE TEST ORDERABLES Final Result Performing Organization Address [facility] Phone Number [facility]
[address] [place] [address], * (ABNORMAL) POC Glucose Once (07/27/2025 12:51 PM EST) Glucose 145(H) 70 - 130 mg/dL 07/27/2025 12:53 PM EST [facility] Comment:Serial Number: [id number]: [id number] Blood 07/27/2025 12:5 1 PM EST 07/27/2025 12:53 PM EST us Mart Ridley MD POINT OF CARE TEST ORDERABLES Final Result Performing Organization Address [facility] Phone Number [facility]
[address] [place] [address], * (ABNORMAL) POC Glucose Once (07/27/2025 7:27 AM EST) Glucose 137(H) 70 - 130 mg/dL 07/27/2025 7:29 AM EST [facility] Comment:Serial Number: [id number]: [id number] Blood 07/27/2025 7:27 AM EST 07/27/2025 7:29 AM EST us Mart Ridley MD POINT OF CARE TEST ORDERABLES Final Result Performing Organization Address [facility] Co de Phone Number [facility]
[address] [place] [address], * (ABNORMAL) POC Glucose Once (07/26/2025 7:58 PM EST) Glucose 235(H) 70 - 130 mg/dL 07/26/2025 8:01 PM EST [facility] Comment:Serial Number: [id number]: [id number] Blood 07/26/2025 7:58 PM EST 07/26/2025 8:01 PM EST us Mart Ridley MD POINT OF CARE TEST ORDERABLES Final Result Performing Organization Address City/[facility]/ZIP Co de Phone Number [facility]
[address] [place] [address], * POC Glucose Once (07/26/2025 5:10 PM EST) Glucose 127 70 - 130 mg/dL 07/26/2025 5:13 PM EST [facility] Comment:Serial Number: [id number]: [id number] Blood 07/26/2025 5:10 PM EST 07/26/2025 5:13 PM EST us Mart Ridley MD POINT OF CARE TEST ORDERABLES Final Result [facility]
[address] [place] [address], * POC Glucose Once (07/26/2025 7:34 AM EST) Glucose 130 70 - 130 mg/dL 07/26/2025 7:37 AM EST [facility] Comment:Serial Number: [id number]: [id number] Blood 07/26/2025 7:34 AM EST 07/26/2025 7:37 AM EST us Mart Ridley MD POINT OF CARE TEST ORDERABLES Final Result Performing Organization Address [facility] de Phone Number [facility]
[address] [place] [address], * (ABNORMAL) POC Glucose Once (07/25/2025 9:06 PM EST) Glucose 163(H) 70 - 130 mg/dL 07/25/2025 9:08 PM EST [facility] Comment:Serial Number: [id number]: [id number] Blood 07/25/2025 9:06 PM EST 07/25/2025 9:08 PM EST us Mart Ridley MD POINT OF CARE TEST ORDERABLES Final Result Performing Organization Address [facility] Phone Number [facility]
[address] [place] [address], * POC Glucose Once (07/25/2025 11:32 AM EST) Glucose 79 70 - 130 mg/dL 07/25/2025 11:34 AM EST [facility] Comment:Serial Number: [id number]: [id number] Blood 07/25/2025 11:3 2 AM EST 07/25/2025 11:34 AM EST us Mart Ridley MD POINT OF CARE TEST ORDERABLES Final Result Performing Organization Address [facility] de Phone Number [facility]
[address] [place] [address], * POC Glucose Once (07/25/2025 7:26 AM EST) Glucose 86 70 - 130 mg/dL 07/25/2025 7:28 AM EST [facility] Comment:Serial Number: [id number]: [id number] Blood 07/25/2025 7:26 AM EST 07/25/2025 7:28 AM EST Mart Ridley MD POINT OF CARE TEST ORDERABLES Final Result [facility]
[address] [place] [address], * (ABNORMAL) Basic Metabolic Panel (07/25/2025 6:17 AM EST) [facility] Glucose 89 65 - 99 mg/dL 07/25/2025 7:02 AM [facility] BUN 27.2(H) 8.0 - 23.0 mg/dL 07/25/2025 7:02 AM [facility] Creatinine 1.02 0.76 - 1.27 mg/dL 07/25/2025 7:02 AM [facility] Sodium 140 136 - 145 mmol/L 07/25/2025 7:02 AM [facility] Potassium 5.2 3.5 - 5.2 mmol/L 07/25/2025 7:02 AM [facility] Chloride 109(H) 98 - 107 mmol/L 07/25/2025 7:02 AM [facility] CO2 20.4(L) 22.0 - 29.0 mmol/L 07/25/2025 7:02 AM [facility] Calcium 9.1 8.6 - 10.5 mg/dL 07/25/2025 7:02 AM [facility] BUN/Creatinine Ratio 26.7(H) 7.0 - 25.0 07/25/2025 7:02 AM [facility] Anion Gap 10.6 5.0 - 15.0 mmol/L 07/25/2025 7:02 AM [facility] eGFR 78.6 >60.0 mL/min/1.7 3 07/25/2025 7:02 AM [facility] Blood Venipuncture / Unknown 07/25/2025 6:17 AM EST 07/25/2025 6:26 AM EST Narrative [facility] - 07/25/2025 7:02 AM EST GFR Categories in Chronic Kidney Disease (CKD) [...] does not include race as a factor Osmany Mccann [facility] LAB BLOOD ORDERABLES Final Result [facility]
[address] [place] [address], * POC Glucose Once (07/25/2025 1:25 AM EST) Glucose 112 70 - 130 mg/dL 07/25/2025 1:28 AM EST [facility] Comment:Serial Number: [id number]: [id number] Blood 07/25/2025 1:25 AM EST 07/25/2025 1:28 AM EST Ana Reynolds DO POINT OF CARE TEST ORDERABLE S Final Result [facility]
[address] [place] [address], * POC Glucose Once (07/24/2025 5:43 PM EST) Glucose 104 70 - 130 mg/dL 07/24/2025 5:45 PM EST [facility] Comment:Serial Number: [id number]: [id number] Blood 07/24/2025 5:43 PM EST 07/24/2025 5:45 PM EST Ana R Gail DO POINT OF CARE TEST ORDERABLE S Final Result [facility]
[address] [place] [address], * POC Glucose Once (07/24/2025 12:18 PM EST) Glucose 101 70 - 130 mg/dL 07/24/2025 12:19 PM EST [facility] Comment:Serial Number: [id number]: [id number] Blood 07/24/2025 12:1 8 PM EST 07/24/2025 12:19 PM EST [facility] Gail DO POINT OF CARE TEST ORDERABLE S Final Result Performing Organization Address [facility] Co de Phone Number [facility]
[address] [place] [address], * ECG 12 Lead Other; hyperkalemia (07/24/2025 10:30 AM EST) QT Interval 378 ms BH ECG QTC Interval 452 ms ECG 07/24/2025 10:3 0 AM EST 07/24/2025 6:30 PM EST Narrative [facility] ECG - 07/24/2025 6:30 PM EST Test Reason : Other~ Blood Pressure : */* mmHG Vent. 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-2025) Abnormal ECG When compared with ECG of 15-Jul-2025 05:26, No significant change was found Confirmed by DUGLAS SANTAMARIA ([id number]) on 07/24/2025 6:30:29 PM Referred By: Confirmed By: DUGLAS SANTAMARIA Ana Reynolds DO ECG ORDERABLES Final Result Performing Organization Address City/[facility]/ZIP Co de Phone Number ECG * POC Glucose Once (07/24/2025 7:49 AM EST) Glucose 105 70 - 130 mg/dL 07/24/2025 7:51 AM EST [facility] Comment:Serial Number: [id number]: [id number] Blood 07/24/2025 7:49 AM EST 07/24/2025 7:51 AM EST Ana Reynolds DO POINT OF CARE TEST ORDERABLE S Final Result Performing Organization Address City/[facility] Co de Phone Number [facility]
[address] [place] [address], * (ABNORMAL) Basic Metabolic Panel (07/24/2025 4:03 AM EST) Glucose 115(H) 65 - 99 mg/dL 07/24/2025 5:53 AM EST [facility] BUN 29.3(H) 8.0 - 23.0 mg/dL 07/24/2025 5:53 AM EST [facility] Creatinine 1.35(H) 0.76 - 1.27 mg/dL 07/24/2025 5:53 AM EST [facility] Sodium 138 136 - 145 mmol/L 07/24/2025 5:53 AM EST [facility] Potassium 6.3(HH) 3.5 - 5.2 mmol/L 07/24/2025 5:53 AM EST [facility] Chloride 107 98 - 107 mmol/L 07/24/2025 5:53 AM [facility] CO2 22.2 22.0 - 29.0 mmol/L 07/24/2025 5:53 AM EST [facility] Calcium 8.8 8.6 - 10.5 mg/dL 07/24/2025 5:53 AM EST [facility] BUN/Creatinine Ratio 21.7 7.0 - 25.0 07/24/2025 5:53 AM EST [facility] Anion Gap 8.8 5.0 - 15.0 mmol/L 07/24/2025 5:53 AM [facility] eGFR 56.1(L) >60.0 mL/min/1.7 3 07/24/2025 5:53 AM [facility] Blood Venipuncture / Unknown 07/24/2025 4:03 AM EST 07/24/2025 4:56 AM EST [facility] - 07/24/2025 5:53 AM EST GFR Categories in Chronic Kidney Disease (CKD) [...] not include race as a factor us Ana Reynolds DO LAB BLOOD ORDERABLES Final R esult [facility]
[address] [place] [address], * (ABNORMAL) POC Glucose Once (07/23/2025 8:28 PM EST) Glucose 197(H) 70 - 130 mg/dL 07/23/2025 8:30 PM EST [facility] Comment:Serial Number: [id number]: [id number] Blood 07/23/2025 8:28 PM EST 07/23/2025 8:30 PM EST Ana Reynolds DO POINT OF CARE TEST ORDERABLE S Final Result Performing Organization Address City/[facility]/ZIP Co de Phone Number [facility]
[address] [place] [address], * (ABNORMAL) POC Glucose Once (07/23/2025 5:22 PM EST) Glucose 133(H) 70 - 130 mg/dL 07/23/2025 5:25 PM EST [facility] Comment:Serial Number: [id number]: [id number] Blood 07/23/2025 5:22 PM EST 07/23/2025 5:25 PM EST Ana Reynolds DO POINT OF CARE TEST ORDERABLE S Final Result Performing Organization Address [facility]/ZIP Co de Phone Number [facility]
[address] [place] [address], * POC Glucose Once (07/23/2025 11:43 AM EST) Glucose 99 70 - 130 mg/dL 07/23/2025 11:45 AM EST [facility] Comment:Serial Number: [id number]: [id number] Blood 07/23/2025 11:4 3 AM EST 07/23/2025 11:45 AM EST Ana Reynolds DO POINT OF CARE TEST ORDERABLE S Final Result [facility]
[address] [place] [address], * POC Glucose Once (07/23/2025 8:13 AM EST) Glucose 98 70 - 130 mg/dL 07/23/2025 8:15 AM EST [facility] Comment:Serial Number: [id number]: [id number] Blood 07/23/2025 8:13 AM EST 07/23/2025 8:15 AM EST Ana Reynolds DO POINT OF CARE TEST ORDERABLE S Final Result [facility]
[address] [place] [address], * (ABNORMAL) Basic Metabolic Panel (07/23/2025 4:42 AM EST) Glucose 104(H) 65 - 99 mg/dL 07/23/2025 5:37 AM EST [facility] BUN 20.3 8.0 - 23.0 mg/dL 07/23/2025 5:37 AM EST [facility] Creatinine 0.94 0.76 - 1.27 mg/dL 07/23/2025 5:37 AM EST [facility] Sodium 137 136 - 145 mmol/L 07/23/2025 5:37 AM EST [facility] Potassium 5.8(H) 3.5 - 5.2 mmol/L 07/23/2025 5:37 AM EST [facility] Chloride 105 98 - 107 mmol/L 07/23/2025 5:37 AM EST [facility] CO2 21.8(L) 22.0 - 29.0 mmol/L 07/23/2025 5:37 AM EST [facility] Calcium 9.3 8.6 - 10.5 mg/dL 07/23/2025 5:37 AM EST [facility] BUN/Creatinine Ratio 21.6 7.0 - 25.0 07/23/2025 5:37 AM EST [facility] Anion Gap 10.2 5.0 - 15.0 mmol/L 07/23/2025 5:37 AM EST [facility] eGFR 86.7 >60.0 mL/min/1.7 3 07/23/2025 5:37 AM EST [facility] Blood Venipuncture / Unknown 07/23/2025 4:42 AM EST 07/23/2025 5:03 AM EST [facility]ORY - 07/23/2025 5:37 AM EST GFR Categories in Chronic Kidney Disease (CKD) [...] does not include race as a factor Jessie Hernandez [facility] LAB BLOOD ORDERABLES Final Result [facility]
[address] [place] [address], * Vancomycin, Random (07/23/2025 4:42 AM EST) Pathologist [facility] Vancomycin Random 11.20 5.00 - 40.00 mcg/mL 07/23/2025 5:37 AM EST [facility] Blood Venipuncture / Unknown 07/23/2025 4:42 AM EST 07/23/2025 5:03 AM EST [facility]ATORY - 07/23/2025 5:37 AM EST Therapeutic Ranges for Vancomycin Vancomycin Random 5.0-40.0 mcg/mL Vancomycin Trough 5.0-20.0 mcg/mL Vancomycin Peak 20.0-40.0 mcg/mL Leonie Esquivel [facility] LAB BLOOD ORDERABLES Final Re sult Performing Organization Address [facility] Co de Phone Number [facility]
[address] [place] [address], * POC Glucose Once (07/22/2025 7:48 PM EST) Glucose 122 70 - 130 mg/dL 07/22/2025 7:50 PM EST [facility] Comment:Serial Number: [id number]: [id number] Blood 07/22/2025 7:48 PM EST 07/22/2025 7:50 PM EST Ana Reynolds POINT OF CARE TEST ORDERABLE S Final Result Performing Organization Address [facility] de Phone Number [facility]
[address] [place] [address], * POC Glucose Once (07/22/2025 7:53 AM EST) Glucose 118 70 - 130 mg/dL 07/22/2025 7:55 AM EST [facility] Comment:Serial Number: [id number]: [id number] Blood 07/22/2025 7:53 AM EST 07/22/2025 7:55 AM EST Ana Reynolds DO POINT OF CARE TEST ORDERABLE S Final Result Performing Organization Address [facility] Co de Phone Number [facility]
[address] [place] [address], * POC Glucose Once (07/21/2025 11:43 AM EST) Glucose 110 70 - 130 mg/dL 07/21/2025 11:45 AM EST [facility] Comment:Serial Number: [id number]: [id number] Blood 07/21/2025 11:4 3 AM EST 07/21/2025 11:45 AM EST Ana Elizondoaisha HENDRIX POINT OF CARE TEST ORDERABLE S Final Result Performing Organization Address City/[facility] Co de Phone Number [facility]
[address] [place] [address], * POC Glucose Once (07/21/2025 7:38 AM EST) Glucose 119 70 - 130 mg/dL 07/21/2025 7:41 AM EST [facility] Comment:Serial Number: [id number]: [id number] Blood 07/21/2025 7:38 AM EST 07/21/2025 7:41 AM EST Anasolomon Reynolds DO POINT OF CARE TEST ORDERABLE S Final Result Performing Organization Address [facility] Co de Phone Number [facility]
[address] [place] [address], * POC Glucose Once (07/20/2025 4:45 PM EST) Glucose 124 70 - 130 mg/dL 07/20/2025 4:47 PM EST [facility] Comment:Serial Number: [id number]: [id number] Blood 07/20/2025 4:45 PM EST 07/20/2025 4:47 PM EST Ana Elizondoaisha HENDRIX POINT OF CARE TEST ORDERABLE S Final Result Performing Organization Address [facility] Co de Phone Number [facility]
[address] [place] [address], * (ABNORMAL) POC Glucose Once (07/20/2025 12:04 PM EST) Glucose 139(H) 70 - 130 mg/dL 07/20/2025 12:06 PM EST [facility] Comment:Serial Number: [id number]: [id number] Blood 07/20/2025 12:0 4 PM EST 07/20/2025 12:06 PM [facility]INT OF [facility]ARE TEST ORDERABLE S Final Result Performing Organization Address City/[facility] Co de Phone Number [facility]
[address] [place] [address], * POC Glucose Once (07/20/2025 7:50 AM EST) Glucose 86 70 - 130 mg/dL 07/20/2025 7:52 AM [facility] Comment:Serial Number: [id number]: [id number] Blood 07/20/2025 7:50 AM EST 07/20/2025 7:52 AM EST [facility] POINT OF CARE TEST ORDERABLE S Final Result Performing Organization Address [facility] Phone Number [facility]
[address] [place] [address], * (ABNORMAL) CBC (No Diff) (07/20/2025 5:08 AM EST) WBC 6.74 3.40 - 10.80 10*3/mm3 07/20/2025 6:17 AM [facility] RBC 3.87(L) 4.14 - 5.80 10*6/mm3 07/20/2025 6:17 AM [facility] Hemoglobin 9.6(L) 13.0 - 17.7 g/dL 07/20/2025 6:17 AM [facility] Hematocrit 30.3(L) 37.5 - 51.0 % 07/20/2025 6:17 AM [facility] MCV 78.3(L) 79.0 - 97.0 fL 07/20/2025 6:17 AM EST [facility] MCH 24.8(L) 26.6 - 33.0 pg 07/20/2025 6:17 AM EST [facility] MCHC 31.7 31.5 - 35.7 g/dL 07/20/2025 6:17 AM [facility] RDW 18.4(H) 12.3 - 15.4 % 07/20/2025 6:17 AM EST [facility] RDW-SD 51.9 37.0 - 54.0 fl 07/20/2025 6:17 AM [facility] MPV 9.5 6.0 - 12.0 fL 07/20/2025 6:17 AM [facility] Platelets 228 140 - 450 10*3/mm3 07/20/2025 6:17 AM [facility] Blood Venipuncture / Unknown 07/20/2025 5:08 AM EST 07/20/2025 6:10 AM EST us Law Castro PharmD LAB BLOOD ORDERABLES Final Re sult [facility]
[address] [place] [address], * (ABNORMAL) Basic Metabolic Panel (07/20/2025 5:08 AM EST) [facility] Signature Glucose 90 65 - 99 mg/dL 07/20/2025 6:35 AM EST [facility] BUN 22.6 8.0 - 23.0 mg/dL 07/20/2025 6:35 AM [facility] Creatinine 0.81 0.76 - 1.27 mg/dL 07/20/2025 6:35 AM EST [facility] Sodium 136 136 - 145 mmol/L 07/20/2025 6:35 AM EST [facility] Potassium 5.0 3.5 - 5.2 mmol/L 07/20/2025 6:35 AM EST [facility] Chloride 107 98 - 107 mmol/L 07/20/2025 6:35 AM EST [facility] CO2 19.5(L) 22.0 - 29.0 mmol/L 07/20/2025 6:35 AM EST [facility] Calcium 8.7 8.6 - 10.5 mg/dL 07/20/2025 6:35 AM EST [facility] BUN/Creatinine Ratio 27.9(H) 7.0 - 25.0 07/20/2025 6:35 AM EST [facility] Anion Gap 9.5 5.0 - 15.0 mmol/L 07/20/2025 6:35 AM [facility] eGFR 94.3 >60.0 mL/min/1.7 3 07/20/2025 6:35 AM [facility] Blood Venipuncture / Unknown 07/20/2025 5:08 AM EST 07/20/2025 5:55 AM EST [facility]ATORY - 07/20/2025 6:35 AM EST GFR Categories in Chronic Kidney Disease (CKD) [...] not include race as a factor us Law Castro PharmD LAB BLOOD ORDERABLES Final Re sult [facility]
[address] [place] [address], * POC Glucose Once (07/19/2025 4:21 PM EST) Glucose 111 70 - 130 mg/dL 07/19/2025 4:26 PM EST [facility] Comment:Serial Number: [id number]: [id number] Blood 07/19/2025 4:21 PM EST 07/19/2025 4:26 PM EST Gigi Alcantara MD POINT OF CARE TEST ORDERABLE S Final Result Performing Organization Address City/[facility]/ZIP Co de Phone Number [facility]
[address] [place] [address], * (ABNORMAL) POC Glucose Once (07/19/2025 11:30 AM EST) Glucose 132(H) 70 - 130 mg/dL 07/19/2025 11:33 AM EST [facility] Comment:Serial Number: [id number]: [id number] Blood 07/19/2025 11:3 0 AM EST 07/19/2025 11:33 AM EST Gigi Alcantara MD POINT OF CARE TEST ORDERABLE S Final Result Performing Organization Address [facility] Co de Phone Number [facility]
[address] [place] [address], * Magnesium (07/19/2025 8:35 AM EST) Magnesium 1.9 1.6 - 2.4 mg/dL 07/19/2025 9:02 AM EST [facility] Blood Venipuncture / Unknown 07/19/2025 8:35 AM EST 07/19/2025 8:43 AM EST Gigi Alcantara MD LAB BLOOD ORDERABLES Final R esult Performing Organization Address City/[facility]/ZIP Co de Phone Number [facility]
[address] [place] [address], * POC Glucose Once (07/19/2025 7:32 AM EST) Glucose 103 70 - 130 mg/dL 07/19/2025 7:34 AM EST [facility] Comment:Serial Number: [id number]: [id number] Blood 07/19/2025 7:32 AM EST 07/19/2025 7:34 AM EST Gigi Alcantara MD POINT OF CARE TEST ORDERABLE S Final Result Performing Organization Address City/[facility] Co de Phone Number [facility]
[address] [place] [address], * (ABNORMAL) POC Glucose Once (07/18/2025 7:29 PM EST) Glucose 141(H) 70 - 130 mg/dL 07/18/2025 7:31 PM EST [facility] Comment:Serial Number: [id number]: [id number] Blood 07/18/2025 7:29 PM EST 07/18/2025 7:31 PM EST Gigi Alcantara MD POINT OF CARE TEST ORDERABLE S Final Result Performing Organization Address [facility] Co de Phone Number [facility]
[address] [place] [address], * POC Glucose Once (07/18/2025 4:34 PM EST) Glucose 123 70 - 130 mg/dL 07/18/2025 4:37 PM EST [facility] Comment:Serial Number: [id number]: [id number] Blood 07/18/2025 4:34 PM EST 07/18/2025 4:37 PM EST Gigi Alcantara MD POINT OF CARE TEST ORDERABLE S Final Result [facility]
[address] [place] [address], * POC Glucose Once (07/18/2025 11:11 AM EST) Glucose 125 70 - 130 mg/dL 07/18/2025 11:16 AM EST [facility] Comment:Serial Number: [id number]: [id number] Blood 07/18/2025 11:1 1 AM EST 07/18/2025 11:16 AM EST Gigi Alcantara MD POINT OF CARE TEST ORDERABLE S Final Result [facility]
[address] [place] [address], * Magnesium (07/18/2025 3:37 AM EST) Pathologist [facility] Magnesium 2.1 1.6 - 2.4 mg/dL 07/18/2025 4:37 AM EST [facility] Blood Venipuncture / Unknown 07/18/2025 3:37 AM EST 07/18/2025 4:06 AM EST Gigi Alcantara MD LAB BLOOD ORDERABLES Final R esult [facility]
[address] [place] [address], * (ABNORMAL) Basic Metabolic Panel (07/18/2025 3:37 AM EST) Glucose 148(H) 65 - 99 mg/dL 07/18/2025 4:37 AM EST [facility] BUN 22.5 8.0 - 23.0 mg/dL 07/18/2025 4:37 AM EST [facility] Creatinine 0.82 0.76 - 1.27 mg/dL 07/18/2025 4:37 AM EST [facility] Sodium 137 136 - 145 mmol/L 07/18/2025 4:37 AM EST [facility] Potassium 5.2 3.5 - 5.2 mmol/L 07/18/2025 4:37 AM [facility] Chloride 108(H) 98 - 107 mmol/L 07/18/2025 4:37 AM [facility] CO2 21.4(L) 22.0 - 29.0 mmol/L 07/18/2025 4:37 AM [facility] Calcium 8.6 8.6 - 10.5 mg/dL 07/18/2025 4:37 AM [facility] BUN/Creatinine Ratio 27.4(H) 7.0 - 25.0 07/18/2025 4:37 AM [facility] Anion Gap 7.6 5.0 - 15.0 mmol/L 07/18/2025 4:37 AM [facility] eGFR 93.9 >60.0 mL/min/1.7 3 07/18/2025 4:37 AM [facility] Blood Venipuncture / Unknown 07/18/2025 3:37 AM EST 07/18/2025 4:06 AM EST [facility]ATORY - 07/18/2025 4:37 AM EST GFR Categories in Chronic Kidney Disease (CKD) [...] does not include race as a factor Mere Armas PA-C LAB BLOOD ORDERABLES F inal Result [facility]
[address] [place] [address], * Vancomycin, Random (07/18/2025 3:37 AM EST) Vancomycin Random 19.20 5.00 - 40.00 mcg/mL 07/18/2025 4:37 AM EST [facility] Blood Venipuncture / Unknown 07/18/2025 3:37 AM EST 07/18/2025 4:06 AM EST Narrative [facility] - 07/18/2025 4:37 AM EST Therapeutic Ranges for Vancomycin Vancomycin Random 5.0-40.0 mcg/mL Vancomycin Trough 5.0-20.0 mcg/mL Vancomycin Peak 20.0-40.0 mcg/mL Osmany Mccann [facility] LAB BLOOD ORDERABLES Final Result Performing Organization Address [facility]/ZIP Co de Phone Number [facility]
[address] [place] [address], * (ABNORMAL) POC Glucose Once (07/17/2025 9:15 PM EST) Glucose 148(H) 70 - 130 mg/dL 07/17/2025 9:18 PM EST [facility] Comment:Serial Number: [id number]: [id number] Blood 07/17/2025 9:15 PM EST 07/17/2025 9:18 PM EST Gigi Alcantara MD POINT OF CARE TEST ORDERABLE S Final Result Performing Organization Address City/[facility]/ZIP Co de Phone Number [facility]
[address] [place] [address], * (ABNORMAL) POC Glucose Once (07/17/2025 4:13 PM EST) Glucose 139(H) 70 - 130 mg/dL 07/17/2025 4:15 PM EST [facility] Comment:Serial Number: [id number]: [id number] Blood 07/17/2025 4:13 PM EST 07/17/2025 4:15 PM EST Gigi Alcantara MD POINT OF CARE TEST ORDERABLE S Final Result Performing Organization Address [facility] de Phone Number [facility]
[address] [place] [address], * (ABNORMAL) POC Glucose Once (07/17/2025 12:31 PM EST) Glucose 156(H) 70 - 130 mg/dL 07/17/2025 12:34 PM EST [facility] Comment:Serial Number: [id number]: [id number] Blood 07/17/2025 12:3 1 PM EST 07/17/2025 12:34 PM EST Gigi Alcantara MD POINT OF CARE TEST ORDERABLE S Final Result Performing Organization Address [facility] Co de Phone Number [facility]
[address] [place] [address], * (ABNORMAL) POC Glucose Once (07/17/2025 7:53 AM EST) Glucose 147(H) 70 - 130 mg/dL 07/17/2025 7:56 AM EST [facility] Comment:Serial Number: [id number]: [id number] Blood 07/17/2025 7:53 AM EST 07/17/2025 7:56 AM EST Gigi Alcantara MD POINT OF CARE TEST ORDERABLE S Final Result Performing Organization Address [facility] Co de Phone Number [facility]
[address] [place] [address], * (ABNORMAL) CBC (No Diff) (07/17/2025 5:48 AM EST) [facility] WBC 7.10 3.40 - 10.80 10*3/mm3 07/17/2025 6:36 AM EST [facility] RBC 3.93(L) 4.14 - 5.80 10*6/mm3 07/17/2025 6:36 AM [facility] Hemoglobin 9.3(L) 13.0 - 17.7 g/dL 07/17/2025 6:36 AM [facility] Hematocrit 31.1(L) 37.5 - 51.0 % 07/17/2025 6:36 AM [facility] MCV 79.1 79.0 - 97.0 fL 07/17/2025 6:36 AM [facility] MCH 23.7(L) 26.6 - 33.0 pg 07/17/2025 6:36 AM [facility] MCHC 29.9(L) 31.5 - 35.7 g/dL 07/17/2025 6:36 AM [facility] RDW 18.7(H) 12.3 - 15.4 % 07/17/2025 6:36 AM [facility] RDW-SD 54.2(H) 37.0 - 54.0 fl 07/17/2025 6:36 AM [facility] MPV 9.7 6.0 - 12.0 fL 07/17/2025 6:36 AM [facility] Platelets 211 140 - 450 10*3/mm3 07/17/2025 6:36 AM [facility] Blood Venipuncture / Unknown 07/17/2025 5:48 AM EST 07/17/2025 6:12 AM EST Gigi Alcantara MD LAB BLOOD ORDERABLES Final R esult [facility]
[address] [place] [address], * (ABNORMAL) Basic Metabolic Panel (07/17/2025 5:48 AM EST) Glucose 132(H) 65 - 99 mg/dL 07/17/2025 6:55 AM EST [facility] BUN 21.8 8.0 - 23.0 mg/dL 07/17/2025 6:55 AM [facility] Creatinine 0.89 0.76 - 1.27 mg/dL 07/17/2025 6:55 AM EST [facility] Sodium 139 136 - 145 mmol/L 07/17/2025 6:55 AM EST [facility] Potassium 5.2 3.5 - 5.2 mmol/L 07/17/2025 6:55 AM EST [facility] Chloride 109(H) 98 - 107 mmol/L 07/17/2025 6:55 AM [facility] CO2 19.1(L) 22.0 - 29.0 mmol/L 07/17/2025 6:55 AM EST [facility] Calcium 8.8 8.6 - 10.5 mg/dL 07/17/2025 6:55 AM [facility] BUN/Creatinine Ratio 24.5 7.0 - 25.0 07/17/2025 6:55 AM [facility] Anion Gap 10.9 5.0 - 15.0 mmol/L 07/17/2025 6:55 AM [facility] eGFR 91.6 >60.0 mL/min/1.7 3 07/17/2025 6:55 AM [facility] Blood Venipuncture / Unknown 07/17/2025 5:48 AM EST 07/17/2025 6:13 AM EST [facility] - 07/17/2025 6:55 AM EST GFR Categories in Chronic Kidney Disease (CKD) [...] does not include race as a factor Gigi Alcantara MD LAB BLOOD ORDERABLES Final R esult Performing Organization Address [facility] Co de Phone Number [facility]
[address] [place] [address], * Magnesium (07/17/2025 5:48 AM EST) Magnesium 1.9 1.6 - 2.4 mg/dL 07/17/2025 6:55 AM EST [facility] Blood Venipuncture / Unknown 07/17/2025 5:48 AM EST 07/17/2025 6:13 AM EST Gigi Alcantara MD LAB BLOOD ORDERABLES Final R esult Performing Organization Address [facility] Co de Phone Number [facility]
[address] [place] [address], * (ABNORMAL) POC Glucose Once (07/16/2025 8:02 PM EST) Glucose 142(H) 70 - 130 mg/dL 07/16/2025 8:04 PM EST [facility] Comment:Serial Number: [id number]: [id number] Blood 07/16/2025 8:02 PM EST 07/16/2025 8:04 PM EST Giig Alcantara MD POINT OF CARE TEST ORDERABLE S Final Result Performing Organization Address [facility] Co de Phone Number [facility]
[address] [place] [address], * (ABNORMAL) POC Glucose Once (07/16/2025 4:58 PM EST) Glucose 137(H) 70 - 130 mg/dL 07/16/2025 5:17 PM EST [facility] Comment:Serial Number: [id number]: [id number] Blood 07/16/2025 4:58 PM EST 07/16/2025 5:17 PM EST Gigi Alcantara MD POINT OF CARE TEST ORDERABLE S Final Result Performing Organization Address City/[facility]/ZIP Co de Phone Number [facility]
[address] [place] [address], * POC Glucose Once (07/16/2025 11:25 AM EST) Glucose 105 70 - 130 mg/dL 07/16/2025 11:29 AM EST [facility] Comment:Serial Number: [id number]: [id number] Blood 07/16/2025 11:2 5 AM EST 07/16/2025 11:29 AM EST Gigi Alcantara MD POINT OF CARE TEST ORDERABLE S Final Result Performing Organization Address [facility] Co de Phone Number [facility]
[address] [place] [address], * (ABNORMAL) POC Glucose Once (07/16/2025 7:50 AM EST) Glucose 147(H) 70 - 130 mg/dL 07/16/2025 7:52 AM EST [facility] Comment:Serial Number: [id number]: [id number] Blood 07/16/2025 7:50 AM EST 07/16/2025 7:52 AM EST Gigi Alcantara MD POINT OF CARE TEST ORDERABLE S Final Result Performing Organization Address City/[facility]/ZIP Co de Phone Number [facility]
[address] [place], [place] [id number], * (ABNORMAL) CBC (No Diff) (07/16/2025 4:47 AM EST) WBC 6.76 3.40 - 10.80 10*3/mm3 07/16/2025 5:19 AM EST [facility] RBC 3.74(L) 4.14 - 5.80 10*6/mm3 07/16/2025 5:19 AM EST [facility] Hemoglobin 8.9(L) 13.0 - 17.7 g/dL 07/16/2025 5:19 AM EST [facility] Hematocrit 30.2(L) 37.5 - 51.0 % 07/16/2025 5:19 AM EST [facility] MCV 80.7 79.0 - 97.0 fL 07/16/2025 5:19 AM EST [facility] MCH 23.8(L) 26.6 - 33.0 pg 07/16/2025 5:19 AM EST [facility] MCHC 29.5(L) 31.5 - 35.7 g/dL 07/16/2025 5:19 AM [facility] RDW 19.3(H) 12.3 - 15.4 % 07/16/2025 5:19 AM [facility] RDW-SD 56.8(H) 37.0 - 54.0 fl 07/16/2025 5:19 AM EST [facility] MPV 9.6 6.0 - 12.0 fL 07/16/2025 5:19 AM EST [facility] Platelets 185 140 - 450 10*3/mm3 07/16/2025 5:19 AM EST [facility] Blood Venipuncture / Unknown 07/16/2025 4:47 AM EST 07/16/2025 5:02 AM EST Gigi Alcantara MD LAB BLOOD ORDERABLES Final R esult [facility]
[address] [place] [address], * (ABNORMAL) Basic Metabolic Panel (07/16/2025 4:47 AM EST) Glucose 134(H) 65 - 99 mg/dL 07/16/2025 6:19 AM EST [facility] BUN 23.1(H) 8.0 - 23.0 mg/dL 07/16/2025 6:19 AM EST [facility] Creatinine 0.80 0.76 - 1.27 mg/dL 07/16/2025 6:19 AM EST [facility] Sodium 139 136 - 145 mmol/L 07/16/2025 6:19 AM [facility] Potassium 4.9 3.5 - 5.2 mmol/L 07/16/2025 6:19 AM EST [facility] Chloride 110(H) 98 - 107 mmol/L 07/16/2025 6:19 AM EST [facility] CO2 19.3(L) 22.0 - 29.0 mmol/L 07/16/2025 6:19 AM EST [facility] Calcium 8.5(L) 8.6 - 10.5 mg/dL 07/16/2025 6:19 AM [facility] BUN/Creatinine Ratio 28.9(H) 7.0 - 25.0 07/16/2025 6:19 AM [facility] Anion Gap 9.7 5.0 - 15.0 mmol/L 07/16/2025 6:19 AM [facility] eGFR 94.6 >60.0 mL/min/1.7 3 07/16/2025 6:19 AM [facility] Blood Venipuncture / Unknown 07/16/2025 4:47 AM EST 07/16/2025 5:01 AM EST [facility] - 07/16/2025 6:19 AM EST GFR Categories in Chronic Kidney Disease (CKD) [...] does not include race as a factor Gigi Alcantara MD LAB BLOOD ORDERABLES Final R esult Performing Organization Address [facility] Co de Phone Number [facility]
[address] [place] [address], * Magnesium (07/16/2025 4:47 AM EST) Magnesium 2.0 1.6 - 2.4 mg/dL 07/16/2025 6:19 AM EST [facility] Blood Venipuncture / Unknown 07/16/2025 4:47 AM EST 07/16/2025 5:01 AM EST Gigi Alcantara MD LAB BLOOD ORDERABLES Final R esult Performing Organization Address [facility] de Phone Number [facility]
[address] [place] [address], * (ABNORMAL) POC Glucose Once (07/15/2025 7:34 PM EST) Glucose 158(H) 70 - 130 mg/dL 07/15/2025 7:44 PM EST [facility] Comment:Serial Number: [id number]: [id number] Blood 07/15/2025 7:34 PM EST 07/15/2025 7:44 PM EST Gigi Alcantara MD POINT OF CARE TEST ORDERABLE S Final Result Performing Organization Address [facility] de Phone Number [facility]
[address] [place] [address], * (ABNORMAL) POC Glucose Once (07/15/2025 4:24 PM EST) Glucose 131(H) 70 - 130 mg/dL 07/15/2025 4:27 PM EST [facility] Comment:Serial Number: [id number]: [id number] Blood 07/15/2025 4:24 PM EST 07/15/2025 4:26 PM EST us Gigi Alcantara MD POINT OF CARE TEST ORDERABLE S Final Result [facility]
[address] [place] [address], * (ABNORMAL) POC Glucose Once (07/15/2025 11:11 AM EST) Glucose 219(H) 70 - 130 mg/dL 07/15/2025 11:14 AM EST [facility] Comment:Serial Number: [id number]: [id number] Blood 07/15/2025 11:1 1 AM EST 07/15/2025 11:13 AM EST us Gigi Alcantara MD POINT OF CARE TEST ORDERABLE S Final Result [facility]
[address] [place] [address], * POC Glucose Once (07/15/2025 7:20 AM EST) Glucose 106 70 - 130 mg/dL 07/15/2025 7:22 AM EST [facility] Comment:Serial Number: [id number]: [id number] Blood 07/15/2025 7:20 AM EST 07/15/2025 7:22 AM EST us Gigi Alcantara MD POINT OF CARE TEST ORDERABLE S Final Result [facility]
[address] [id number], * ECG 12 Lead QT Measurement (07/15/2025 5:26 AM EST) QT Interval 374 ms BH ECG QTC Interval 445 ms ECG 07/15/2025 5:26 AM EST 07/15/2025 10:46 AM EST Narrative ECG - 07/15/2025 10:46 AM EST Test Reason : QT Measurement Blood Pressure : */* mmHG Vent. 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5 - 51.0 % 07/15/2025 4:57 AM EST [facility] MCV 80.9 79.0 - 97.0 fL 07/15/2025 4:57 AM EST [facility] MCH 23.9(L) 26.6 - 33.0 pg 07/15/2025 4:57 AM EST [facility] MCHC 29.6(L) 31.5 - 35.7 g/dL 07/15/2025 4:57 AM [facility] RDW 19.0(H) 12.3 - 15.4 % 07/15/2025 4:57 AM [facility] RDW-SD 55.8(H) 37.0 - 54.0 fl 07/15/2025 4:57 AM EST [facility] MPV 9.3 6.0 - 12.0 fL 07/15/2025 4:57 AM EST [facility] Platelets 210 140 - 450 10*3/mm3 07/15/2025 4:57 AM [facility] Blood Venipuncture / Unknown 07/15/2025 4:32 AM EST 07/15/2025 4:49 AM EST Gigi Alcantara MD LAB BLOOD ORDERABLES Final R esult [facility]
[address] [place] [address], * (ABNORMAL) Basic Metabolic Panel (07/15/2025 4:32 AM EST) Pathologist [facility] Glucose 98 65 - 99 mg/dL 07/15/2025 5:21 AM EST [facility] BUN 25.4(H) 8.0 - 23.0 mg/dL 07/15/2025 5:21 AM EST [facility] Creatinine 0.74(L) 0.76 - 1.27 mg/dL 07/15/2025 5:21 AM [facility] Sodium 139 136 - 145 mmol/L 07/15/2025 5:21 AM [facility] Potassium 4.8 3.5 - 5.2 mmol/L 07/15/2025 5:21 AM EST [facility] Chloride 111(H) 98 - 107 mmol/L 07/15/2025 5:21 AM [facility] CO2 18.8(L) 22.0 - 29.0 mmol/L 07/15/2025 5:21 AM [facility] Calcium 8.6 8.6 - 10.5 mg/dL 07/15/2025 5:21 AM [facility] BUN/Creatinine Ratio 34.3(H) 7.0 - 25.0 07/15/2025 5:21 AM [facility] Anion Gap 9.2 5.0 - 15.0 mmol/L 07/15/2025 5:21 AM [facility] eGFR 96.9 >60.0 mL/min/1.7 3 07/15/2025 5:21 AM [facility] Blood Venipuncture / Unknown 07/15/2025 4:32 AM EST 07/15/2025 4:52 AM EST [facility] - 07/15/2025 5:21 AM EST GFR Categories in Chronic Kidney Disease (CKD) [...] does not include race as a factor Gigi Alcantara MD LAB BLOOD ORDERABLES Final R esult Performing Organization Address City/[facility] Co de Phone Number [facility]
[address] [place] [address], * Magnesium (07/15/2025 4:32 AM EST) [facility] Magnesium 2.1 1.6 - 2.4 mg/dL 07/15/2025 5:21 AM EST [facility] Blood Venipuncture / Unknown 07/15/2025 4:32 AM EST 07/15/2025 4:52 AM EST Gigi Alcantara MD LAB BLOOD ORDERABLES Final R esult Performing Organization Address [facility] de Phone Number [facility]
[address] [place] [address], * (ABNORMAL) POC Glucose Once (07/14/2025 7:32 PM EDT) Glucose 156(H) 70 - 130 mg/dL 07/14/2025 7:35 PM EDT [facility] Comment:Serial Number: [id number]: [id number] Blood 07/14/2025 7:32 PM EDT 07/14/2025 7:35 PM EDT Gigi Alcantara MD POINT OF CARE TEST ORDERABLE S Final Result Performing Organization Address City/[facility] de Phone Number [facility]
[address] [place] [address], * POC Glucose Once (07/14/2025 4:04 PM EDT) Glucose 108 70 - 130 mg/dL 07/14/2025 4:09 PM EDT [facility] Comment:Serial Number: [id number]: [id number] Blood 07/14/2025 4:04 PM EDT 07/14/2025 4:09 PM EDT Gigi Alcantara MD POINT OF CARE TEST ORDERABLE S Final Result Performing Organization Address City/[facility] Co de Phone Number [facility]
[address] [place] [address], * (ABNORMAL) POC Glucose Once (07/14/2025 3:20 PM EDT) [facility] Signature Glucose 182(H) 70 - 130 mg/dL 07/14/2025 3:22 PM EDT [facility] Comment:Serial Number: [id number]: [id number] Blood 07/14/2025 3:20 PM EDT 07/14/2025 3:22 PM EDT Gigi Alcantara MD POINT OF CARE TEST ORDERABLE S Final Result Performing Organization Address City/[facility]/ZIP Co de Phone Number [facility]
[address] [place] [address], * (ABNORMAL) Blood Gas, Venous With Co-Ox (07/14/2025 3:17 PM EDT) Site Nurse/Dr Draw 07/14/2025 3:27 PM EDT [facility] THER[facility] pH, Venous 7.352 7.310 - 7.410 pH Units 07/14/2025 3:27 PM EDT [facility]ER[facility] pCO2, Venous 39.4(L) 41.0 - 51.0 mm Hg 07/14/2025 3:27 PM EDT [facility] Comment:84 Value below refer ence range pO2, Venous 96.7(H) 27.0 - 53.0 mm Hg 07/14/2025 3:27 PM EDT [facility] Comment:83 Value above refer ence range HCO3, Venous 21.8(L) 22.0 - 28.0 mmol/L 07/14/2025 3:27 PM EDT [facility] Base Excess, Venous -3.5(L) -2.0 - 2.0 mmol/L 07/14/2025 3:27 PM EDT [facility] Hemoglobin, Blood Gas 8.8(L) 13.5 - 17.5 g/dL 07/14/2025 3:27 PM EDT [facility] Oxyhemoglobin Venous 95.8 % 09/2024 3:27 PM EDT [facility] Comment:83 Value above refer ence range Methemoglobin Venous 0.5 % 09/2024 3:27 PM EDT [facility] Carboxyhemoglobin Venous 1.3 % 07/14/2025 3:27 PM EDT [facility] CO2 Content 23.0 22 - 33 mmol/L 07/14/2025 3:27 PM EDT [facility] Temperature 37.0 07/14/2025 3:27 PM EDT [facility] Barometric Pressure for Blood Gas 07/14/2025 3:27 PM EDT [facility] Comment:N/A Modality Room Air 07/14/2025 3:27 PM EDT [facility] FIO2 21 % 07/14/2025 3:27 PM EDT [facility] Rate 0 Breaths/ minute 07/14/2025 3:27 PM EDT [facility] PIP 0 cmH2O 07/14/2025 3:27 PM EDT [facility] Comment:Meter: [id number] Manager Rn: [id number] IPAP 0 cm H2O 07/14/2025 3:27 PM EDT [facility] EPAP 0 cm H2O 07/14/2025 3:27 PM EDT [facility] Venous Blood 07/14/2025 3:17 PM EDT 07/14/2025 3:17 PM EDT Gigi Alcantara MD LAB BLOOD ORDERABLES Final R esult [facility]
[address] [place] [address], * POC Glucose Once (07/14/2025 2:48 PM EDT) Glucose 72 70 - 130 mg/dL 07/14/2025 2:50 PM EDT [facility] Comment:Serial Number: [id number]: [id number] Blood 07/14/2025 2:48 PM EDT 07/14/2025 2:50 PM EDT Gigi Alcantara MD POINT OF CARE TEST ORDERABLE S Final Result Performing Organization Address [facility] Co de Phone Number [facility]
[address] [place] [address], * POC Glucose Once (07/14/2025 11:08 AM EDT) Glucose 75 70 - 130 mg/dL 07/14/2025 11:10 AM EDT [facility] Comment:Serial Number: [id number]: [id number] Blood 07/14/2025 11:0 8 AM EDT 07/14/2025 11:10 AM EDT Gigi Alcantara MD POINT OF CARE TEST ORDERABLE S Final Result Performing Organization Address City/[facility]/ZIP Co de Phone Number [facility]
[address] [place] [address], [place] [phone] * POC Glucose Once (07/14/2025 7:33 AM EDT) [facility] Glucose 92 70 - 130 mg/dL 07/14/2025 7:34 AM EDT [facility] Comment:Serial Number: [id number]: [id number] Blood 07/14/2025 7:33 AM EDT 07/14/2025 7:34 AM EDT Gigi Alcantara MD POINT OF CARE TEST ORDERABLE S Final Result [facility]
[address] [place] [address], * (ABNORMAL) Blood Gas, Venous With Co-Ox (07/14/2025 6:01 AM EDT) [facility] Site Nurse/Dr Draw 07/14/2025 6:10 AM EDT [facility] pH, Venous 7.311 7.310 - 7.410 pH Units 07/14/2025 6:10 AM EDT [facility] Comment:84 Value below refer ence range pCO2, Venous 43.7 41.0 - 51.0 mm Hg 07/14/2025 6:10 AM EDT [facility] pO2, Venous 24.3(L) 27.0 - 53.0 mm Hg 07/14/2025 6:10 AM EDT [facility] Comment:84 Value below refer ence range HCO3, Venous 22.1 22.0 - 28.0 mmol/L 07/14/2025 6:10 AM EDT [facility] Base Excess, Venous -4.0(L) -2.0 - 2.0 mmol/L 07/14/2025 6:10 AM EDT [facility] Hemoglobin, Blood Gas 9.2(L) 13.5 - 17.5 g/dL 07/14/2025 6:10 AM EDT [facility] Oxyhemoglobin Venous 34.7 % 09/2024 6:10 AM EDT [facility] Comment:84 Value below refer ence range Methemoglobin Venous 0.4 % 09/2024 6:10 AM EDT [facility] Carboxyhemoglobin Venous 1.1 % 07/14/2025 6:10 AM EDT [facility] CO2 Content 23.4 22 - 33 mmol/L 07/14/2025 6:10 AM EDT [facility] Temperature 37.0 07/14/2025 6:10 AM EDT [facility] Barometric Pressure for Blood Gas 07/14/2025 6:10 AM EDT [facility] Comment:N/A Modality Room Air 07/14/2025 6:10 AM EDT [facility] FIO2 21 % 07/14/2025 6:10 AM EDT [facility] Rate 0 Breaths/ minute 07/14/2025 6:10 AM EDT [facility] PIP 0 cmH2O 07/14/2025 6:10 AM EDT [facility] Comment:Meter: [id number] Manager Rn: [id number] IPAP 0 cm H2O 07/14/2025 6:10 AM EDT [facility] EPAP 0 cm H2O 07/14/2025 6:10 AM EDT [facility] Venous Blood 07/14/2025 6:01 AM EDT 07/14/2025 6:01 AM EDT us Gigi Alcantara MD LAB BLOOD ORDERABLES Final R esult [facility]
[address] [place] [address], * POC Glucose Once (07/14/2025 5:35 AM EDT) [facility] Signature Glucose 81 70 - 130 mg/dL 07/14/2025 5:37 AM EDT [facility] Comment:Serial Number: [id number]: [id number] Blood 07/14/2025 5:35 AM EDT 07/14/2025 5:37 AM EDT Gigi Alcantara MD POINT OF CARE TEST ORDERABLE S Final Result Performing Organization Address [facility] Co de Phone Number [facility]
[address] [place] [address], * POC Glucose Once (07/14/2025 4:40 AM EDT) Glucose 75 70 - 130 mg/dL 07/14/2025 4:41 AM EDT [facility] Comment:Serial Number: [id number]: [id number] Blood 07/14/2025 4:40 AM EDT 07/14/2025 4:41 AM EDT Gigi Alcantara MD POINT OF CARE TEST ORDERABLE S Final Result Performing Organization Address [facility] de Phone Number [facility]
[address] [place] [address], * Lactic Acid, Plasma (07/14/2025 4:26 AM EDT) Lactate 1.0 0.5 - 2.0 mmol/L 07/14/2025 5:26 AM EDT [facility] Comment:Falsely depressed re sults may occur on samples drawn from patients receiving N-Acetylcysteine (NAC) or Metamizole. Blood Venipuncture / Unknown 07/14/2025 4:26 AM EDT 07/14/2025 5:03 AM EDT Kate Sherwood APRN LAB BLOOD ORDERABLES Final Resul t Performing Organization Address City/[facility] Co de Phone Number [facility]
[address] [place] [address], * Magnesium (07/14/2025 4:25 AM EDT) [facility] Magnesium 2.3 1.6 - 2.4 mg/dL 07/14/2025 5:29 AM EDT [facility] Blood Venipuncture / Unknown 07/14/2025 4:25 AM EDT 07/14/2025 5:03 AM EDT Gigi Alcantara MD LAB BLOOD ORDERABLES Final R esult [facility]
[address] [place] [address], * (ABNORMAL) CBC (No Diff) (07/14/2025 4:25 AM EDT) [facility] WBC 8.27 3.40 - 10.80 10*3/mm3 07/14/2025 5:33 AM EDT [facility] RBC 3.92(L) 4.14 - 5.80 10*6/mm3 07/14/2025 5:33 AM EDT [facility] Hemoglobin 9.2(L) 13.0 - 17.7 g/dL 07/14/2025 5:33 AM EDT [facility] Hematocrit 30.9(L) 37.5 - 51.0 % 07/14/2025 5:33 AM EDT [facility] MCV 78.8(L) 79.0 - 97.0 fL 07/14/2025 5:33 AM EDT [facility] MCH 23.5(L) 26.6 - 33.0 pg 07/14/2025 5:33 AM EDT [facility] MCHC 29.8(L) 31.5 - 35.7 g/dL 07/14/2025 5:33 AM EDT [facility] RDW 19.0(H) 12.3 - 15.4 % 07/14/2025 5:33 AM EDT [facility] RDW-SD 53.9 37.0 - 54.0 fl 07/14/2025 5:33 AM EDT [facility] MPV 9.6 6.0 - 12.0 fL 07/14/2025 5:33 AM EDT [facility] Platelets 251 140 - 450 10*3/mm3 07/14/2025 5:33 AM EDT [facility] Blood Venipuncture / Unknown 07/14/2025 4:25 AM EDT 07/14/2025 5:28 AM EDT Gigi Alcantara MD LAB BLOOD ORDERABLES Final R esult [facility]
[address] [place] [address], * (ABNORMAL) Basic Metabolic Panel (07/14/2025 4:25 AM EDT) Glucose 67 65 - 99 mg/dL 07/14/2025 5:29 AM EDT [facility] BUN 37.3(H) 8.0 - 23.0 mg/dL 07/14/2025 5:29 AM EDT [facility] Creatinine 1.17 0.76 - 1.27 mg/dL 07/14/2025 5:29 AM EDT [facility] Sodium 141 136 - 145 mmol/L 07/14/2025 5:29 AM EDT [facility] Potassium 4.9 3.5 - 5.2 mmol/L 07/14/2025 5:29 AM EDT [facility] Chloride 111(H) 98 - 107 mmol/L 07/14/2025 5:29 AM EDT [facility] CO2 19.8(L) 22.0 - 29.0 mmol/L 07/14/2025 5:29 AM EDT [facility] Calcium 8.6 8.6 - 10.5 mg/dL 07/14/2025 5:29 AM EDT [facility] BUN/Creatinine Ratio 31.9(H) 7.0 - 25.0 07/14/2025 5:29 AM EDT [facility] Anion Gap 10.2 5.0 - 15.0 mmol/L 07/14/2025 5:29 AM EDT [facility] eGFR 66.6 >60.0 mL/min/1.7 3 07/14/2025 5:29 AM EDT [facility] Blood Venipuncture / Unknown 07/14/2025 4:25 AM EDT 07/14/2025 5:03 AM EDT [facility] - 07/14/2025 5:29 AM EDT GFR Categories in Chronic Kidney [...] does not include race as a factor Gigi Alcantara MD LAB BLOOD ORDERABLES Final R esult [facility]
[address] [place] [address], * Vancomycin, Random (07/14/2025 4:25 AM EDT) Vancomycin Random 22.70 5.00 - 40.00 mcg/mL 07/14/2025 5:29 AM EDT [facility] Blood Venipuncture / Unknown 07/14/2025 4:25 AM EDT 07/14/2025 5:03 AM EDT [facility] - 07/14/2025 5:29 AM EDT Therapeutic Ranges for Vancomycin Vancomycin Random 5.0-40.0 mcg/mL Vancomycin Trough 5.0-20.0 mcg/mL Vancomycin Peak 20.0-40.0 mcg/mL Osmany Mccann [facility] LAB BLOOD ORDERABLES Final Result Performing Organization Address City/[facility]/ZIP Co de Phone Number [facility]
[address] [place] [address], [place] [phone] * (ABNORMAL) Urine Culture - Urine, Indwelling Urethral Catheter (07/14/2025 12:53 AM EDT) Urine Culture Yeast isolated(A ) MURRAY 07/15/2025 1:29 PM EST [facility] Urine (Indwelling Urethral Catheter) Collection / Unknown 07/14/2025 12:53 AM EDT 07/14/2025 1:10 AM EDT Narrative [facility] - 07/15/2025 1:29 PM EST No further workup for yeast Colonization of the urinary tract without infection is common. Treatment is discouraged unless the patient is symptomatic, , or undergoing an invasive urologic procedure. Kate Sherwood APRN MICROBIOLOGY - GENERAL ORDERABLE S Final Result Performing Organization Address [facility] Co de Phone Number [facility]
[address] [place] [address], [place] [phone] * (ABNORMAL) Urinalysis, Microscopic Only - Indwelling Urethral Catheter (07/14/2025 12:53 AM EDT) Pathologist [facility] RBC, UA 3-5(A) None Seen, 0-2 /HPF 07/14/2025 1:35 AM EDT [facility] WBC, UA Too Numerous to Count(A) None Seen, 0-2 /HPF 07/14/2025 1:35 AM EDT [facility] Bacteria, UA None Seen None Seen /HPF 07/14/2025 1:35 AM EDT [facility] Squamous Epithelial Cells, UA 0-2 None Seen, 0-2 /HPF 07/14/2025 1:35 AM EDT [facility] Hyaline Casts, UA 0-2 None Seen /LPF 07/14/2025 1:35 AM EDT [facility] Methodology Automated Microscopy 07/14/2025 1:35 AM EDT [facility] Urine (Indwelling Urethral Catheter) Collection / Unknown 07/14/2025 12:53 AM EDT 07/14/2025 1:10 AM EDT Kate Sherwood APRN URINE ORDERABLES Final Result [facility]
[address] [place] [address], * (ABNORMAL) Urinalysis With Culture If Indicated - Indwelling Urethral Catheter (07/14/2025 12:53 AMEDT) Color, UA Yellow Yellow, Straw 07/14/2025 1:35 AM EDT [facility] Appearance, UA Clear Clear 07/14/2025 1:35 AM EDT [facility] pH, UA 5.5 5.0 - 8.0 07/14/2025 1:35 AM EDT [facility] Specific [place], UA 1.018 1.005 - 1.030 07/14/2025 1:35 AM EDT [facility] Glucose, UA Negative Negative 07/14/2025 1:35 AM EDT [facility] Ketones, UA Negative Negative 07/14/2025 1:35 AM EDT [facility] Bilirubin, UA Negative Negative 07/14/2025 1:35 AM EDT [facility] Blood, UA Trace(A) Negative 07/14/2025 1:35 AM EDT [facility] Protein, UA 30 mg/dL (1+)(A) Negative 07/14/2025 1:35 AM EDT [facility] Leuk Esterase, UA Moderate (2+)(A) Negative 07/14/2025 1:35 AM EDT [facility] Nitrite, UA Negative Negative 07/14/2025 1:35 AM EDT [facility] Urobilinogen, UA 0.2 E.U./dL 0.2 - 1.0 E.U./dL 07/14/2025 1:35 AM EDT [facility] Urine (Indwelling Urethral Catheter) Collection / Unknown 07/14/2025 12:53 AM EDT 07/14/2025 1:10 AM EDT Narrative [facility] - 07/14/2025 1:35 AM EDT In absence of clinical symptoms, the presence of pyuria, bacteria, and/or nitrites on the urinalysis result does not correlate with infection. Kate Sherwood IZABELLA URINE ORDERABLES Final Result Performing Organization Address [facility]/ZIP Co de Phone Number [facility]
[address] [place] [address], * (ABNORMAL) POC Glucose Once (07/13/2025 9:01 PM EDT) Glucose 180(H) 70 - 130 mg/dL 07/13/2025 9:04 PM EDT [facility] LABORATORY Comment:Serial Number: [id number]: [id number] Blood 07/13/2025 9:01 PM EDT 07/13/2025 9:04 PM EDT Gigi Alcantara MD POINT OF CARE TEST ORDERABLE S Final Result Performing Organization Address City/[facility] Co de Phone Number [facility]
[address] [place] [address], * Potassium (07/13/2025 6:48 PM EDT) Potassium 5.1 3.5 - 5.2 mmol/L 07/13/2025 7:55 PM EDT [facility] Blood Venipuncture / Unknown 07/13/2025 6:48 PM EDT 07/13/2025 7:26 PM EDT Gill Lechuga [facility] LAB BLOOD ORDERABLES Final R esult Performing Organization Address City/[facility]/ZIP Co de Phone Number [facility]
[address] [place] [address], * (ABNORMAL) POC Glucose Once (07/13/2025 4:33 PM EDT) Glucose 148(H) 70 - 130 mg/dL 07/13/2025 4:35 PM EDT [facility] Comment:Serial Number: [id number]: [id number] Blood 07/13/2025 4:33 PM EDT 07/13/2025 4:35 PM EDT Gigi Alcantara MD POINT OF CARE TEST ORDERABLE S Final Result Performing Organization Address [facility]/ZIP Co de Phone Number [facility]
[address] [place] [address], * POC Glucose Once (07/13/2025 11:50 AM EDT) Glucose 126 70 - 130 mg/dL 07/13/2025 11:54 AM EDT [facility] Comment:Serial Number: [id number]: [id number] Blood 07/13/2025 11:5 0 AM EDT 07/13/2025 11:54 AM EDT us Gigi Alcantara MD POINT OF CARE TEST ORDERABLE S Final Result Performing Organization Address City/[facility]/ZIP Co de Phone Number [facility]
[address] [place] [address], * Magnesium (07/13/2025 8:08 AM EDT) Magnesium 2.2 1.6 - 2.4 mg/dL 07/13/2025 9:01 AM EDT [facility] Blood Venipuncture / Unknown 07/13/2025 8:08 AM EDT 07/13/2025 8:32 AM EDT Gigi Alcantara MD LAB BLOOD ORDERABLES Final R esult [facility]
[address] [place] [address], * (ABNORMAL) CBC (No Diff) (07/13/2025 8:08 AM EDT) [facility] WBC 6.58 3.40 - 10.80 10*3/mm3 07/13/2025 8:46 AM EDT [facility] RBC 3.90(L) 4.14 - 5.80 10*6/mm3 07/13/2025 8:46 AM EDT [facility] Hemoglobin 9.4(L) 13.0 - 17.7 g/dL 07/13/2025 8:46 AM EDT [facility] Hematocrit 30.1(L) 37.5 - 51.0 % 07/13/2025 8:46 AM EDT [facility] MCV 77.2(L) 79.0 - 97.0 fL 07/13/2025 8:46 AM EDT [facility] MCH 24.1(L) 26.6 - 33.0 pg 07/13/2025 8:46 AM EDT [facility] MCHC 31.2(L) 31.5 - 35.7 g/dL 07/13/2025 8:46 AM EDT [facility] RDW 18.9(H) 12.3 - 15.4 % 07/13/2025 8:46 AM EDT [facility] RDW-SD 52.4 37.0 - 54.0 fl 07/13/2025 8:46 AM EDT [facility] MPV 9.4 6.0 - 12.0 fL 07/13/2025 8:46 AM EDT [facility] Platelets 256 140 - 450 10*3/mm3 07/13/2025 8:46 AM EDT [facility] Blood Venipuncture / Unknown 07/13/2025 8:08 AM EDT 07/13/2025 8:32 AM EDT Gigi Alcantara MD LAB BLOOD ORDERABLES Final R esult Performing Organization Address City/[facility]/ZIP Co de Phone Number [facility]
[address] [place] [address], * POC Glucose Once (07/13/2025 7:22 AM EDT) Glucose 104 70 - 130 mg/dL 07/13/2025 7:24 AM EDT [facility] Comment:Serial Number: [id number]: [id number] Blood 07/13/2025 7:22 AM EDT 07/13/2025 7:24 AM EDT Gigi Alcantara MD POINT OF CARE TEST ORDERABLE S Final Result Performing Organization Address City/[facility] Co de Phone Number [facility]
[address] [place] [address], * (ABNORMAL) Basic Metabolic Panel (07/12/2025 11:33 PM EDT) Glucose 126(H) 65 - 99 mg/dL 07/13/2025 12:34 AM EDT [facility] BUN 36.8(H) 8.0 - 23.0 mg/dL 07/13/2025 12:34 AM EDT [facility] Creatinine 1.19 0.76 - 1.27 mg/dL 07/13/2025 12:34 AM EDT [facility] Sodium 136 136 - 145 mmol/L 07/13/2025 12:34 AM EDT [facility] Potassium 5.2 3.5 - 5.2 mmol/L 07/13/2025 12:34 AM EDT [facility] Chloride 104 98 - 107 mmol/L 07/13/2025 12:34 AM EDT [facility] CO2 21.9(L) 22.0 - 29.0 mmol/L 07/13/2025 12:34 AM EDT [facility] Calcium 8.6 8.6 - 10.5 mg/dL 07/13/2025 12:34 AM EDT [facility] BUN/Creatinine Ratio 30.9(H) 7.0 - 25.0 07/13/2025 12:34 AM EDT [facility] Anion Gap 10.1 5.0 - 15.0 mmol/L 07/13/2025 12:34 AM EDT [facility] eGFR 65.3 >60.0 mL/min/1.7 3 07/13/2025 12:34 AM EDT [facility] Blood Venipuncture / Unknown 07/12/2025 11:33 PM EDT 07/12/2025 11:59 PM EDT [facility] LABORATORY - 07/13/2025 12:34 AM EDT GFR Categories in Chronic Kidney [...] not include race as a factor us Chinyere Hensley APRN LAB BLOOD ORDERABLES Final Result [facility]
[address] [place] [address], * (ABNORMAL) POC Glucose Once (07/12/2025 8:19 PM EDT) Glucose 152(H) 70 - 130 mg/dL 07/12/2025 8:22 PM EDT [facility] Comment:Serial Number: [id number]: [id number] Blood 07/12/2025 8:19 PM EDT 07/12/2025 8:22 PM EDT Gigi Alcantara MD POINT OF CARE TEST ORDERABLE S Final Result Performing Organization Address City/[facility]/ZIP Co de Phone Number [facility]
[address] [place] [address], * (ABNORMAL) POC Glucose Once (07/12/2025 4:05 PM EDT) Glucose 154(H) 70 - 130 mg/dL 07/12/2025 4:09 PM EDT [facility] Comment:Serial Number: [id number]: [id number] Blood 07/12/2025 4:05 PM EDT 07/12/2025 4:09 PM EDT Gigi Alcantara MD POINT OF CARE TEST ORDERABLE S Final Result Performing Organization Address City/[facility]/ZIP Co de Phone Number [facility]
[address] [place] [address], * (ABNORMAL) Basic Metabolic Panel (07/12/2025 3:35 PM EDT) Glucose 137(H) 65 - 99 mg/dL 07/12/2025 4:18 PM EDT [facility] BUN 34.2(H) 8.0 - 23.0 mg/dL 07/12/2025 4:18 PM EDT [facility] Creatinine 1.13 0.76 - 1.27 mg/dL 07/12/2025 4:18 PM EDT [facility] Sodium 138 136 - 145 mmol/L 07/12/2025 4:18 PM EDT [facility] Potassium 5.6(H) 3.5 - 5.2 mmol/L 07/12/2025 4:18 PM EDT [facility] Chloride 103 98 - 107 mmol/L 07/12/2025 4:18 PM EDT [facility] CO2 19.6(L) 22.0 - 29.0 mmol/L 07/12/2025 4:18 PM EDT [facility] Calcium 8.9 8.6 - 10.5 mg/dL 07/12/2025 4:18 PM EDT [facility] BUN/Creatinine Ratio 30.3(H) 7.0 - 25.0 07/12/2025 4:18 PM EDT [facility] Anion Gap 15.4(H) 5.0 - 15.0 mmol/L 07/12/2025 4:18 PM EDT [facility] eGFR 69.5 >60.0 mL/min/1.7 3 07/12/2025 4:18 PM EDT [facility] Blood Venipuncture / Unknown 07/12/2025 3:35 PM EDT 07/12/2025 3:56 PM EDT [facility]ORATORY - 07/12/2025 4:18 PM EDT GFR Categories in Chronic Kidney Disease [...] not include race as a factor us Chinyere Hensley DIABETES NURSE LAB BLOOD ORDERABLES Final Result [facility]
[address] [place] [address], * POC Glucose Once (07/12/2025 11:56 AM EDT) Glucose 122 70 - 130 mg/dL 07/12/2025 11:59 AM EDT [facility] Comment:Serial Number: [id number]: [id number] Blood 07/12/2025 11:5 6 AM EDT 07/12/2025 11:59 AM EDT Gigi Alcantara MD POINT OF CARE TEST ORDERABLE S Final Result Performing Organization Address City/[facility]/ZIP Co de Phone Number [facility]
[address] [place] [address], * POC Glucose Once (07/12/2025 7:31 AM EDT) Glucose 86 70 - 130 mg/dL 07/12/2025 7:33 AM EDT [facility] Comment:Serial Number: [id number]: [id number] Blood 07/12/2025 7:31 AM EDT 07/12/2025 7:33 AM EDT Gigi Alcantara MD POINT OF CARE TEST ORDERABLE S Final Result Performing Organization Address City/[facility]/ZIP Co de Phone Number [facility]
[address] [place] [address], * ECG 12 Lead Electrolyte Imbalance (07/12/2025 6:30 AM EDT) QT Interval 404 ms BH ECG QTC Interval 429 ms ECG 07/12/2025 6:30 AM EDT 07/12/2025 12:28 PM EDT Narrative BH ECG - 07/12/2025 12:28 PM EDT Test Reason : Electrolyte Imbalance Blood Pressure : */* mmHG Vent. Rate : 68 BPM Atrial Rate : 68 BPM P-R Int : 176 ms QRS Dur : 106 ms QT Int : 404 ms P-R-T Axes : 5 57 53 degrees QTcB Int : 429 ms Normal sinus rhythm Possible Inferior infarct (cited on or before 06-Jul-2025) Abnormal ECG When compared with ECG of 11-Jul-2025 05:52, No significant change was found Confirmed by HEMANTH ENCISO MD ([id number]) on 07/12/2025 12:28:28 PM Referred By: Confirmed By: HEMANTH ENCISO MD Procedure Note Hemanth Enciso MD - 07/12/2025 Test Reason : Electrolyte Imbalance Blood Pressure : */* mmHG Vent. Rate : 68 BPM Atrial Rate : 68 BPM P-R Int : 176 ms QRS Dur : 106 ms QT Int : 404 ms P-R-T Axes : 5 57 53 degrees QTcB Int : 429 ms Normal sinus rhythm Possible Inferior infarct (cited on or before 06-Jul-2025) Abnormal ECG When compared with ECG of 11-Jul-2025 05:52, No significant change was found Confirmed by HEMANTH ENCISO MD ([id number]) on 07/12/2025 12:28:28 PM Referred By: Confirmed By: HEMANTH ENCISO MD Radha López DIABETES NURSE ECG ORDERABLES Final Resul t Performing Organization Address City/[facility]/ZIP Co de Phone Number ECG * Magnesium (07/12/2025 4:54 AM EDT) Magnesium 2.1 1.6 - 2.4 mg/dL 07/12/2025 5:35 AM EDT [facility] Blood Venipuncture / Unknown 07/12/2025 4:54 AM EDT 07/12/2025 5:06 AM EDT Gigi Alcantara MD LAB BLOOD ORDERABLES Final R esult [facility]
[address] [place] [address], [place] [phone] * (ABNORMAL) CBC (No Diff) (07/12/2025 4:54 AM EDT) WBC 8.43 3.40 - 10.80 10*3/mm3 07/12/2025 5:15 AM EDT [facility] RBC 4.15 4.14 - 5.80 10*6/mm3 07/12/2025 5:15 AM EDT [facility] Hemoglobin 10.1(L) 13.0 - 17.7 g/dL 07/12/2025 5:15 AM EDT [facility] Hematocrit 33.1(L) 37.5 - 51.0 % 07/12/2025 5:15 AM EDT [facility] MCV 79.8 79.0 - 97.0 fL 07/12/2025 5:15 AM EDT [facility] MCH 24.3(L) 26.6 - 33.0 pg 07/12/2025 5:15 AM EDT [facility] MCHC 30.5(L) 31.5 - 35.7 g/dL 07/12/2025 5:15 AM EDT [facility] RDW 19.1(H) 12.3 - 15.4 % 07/12/2025 5:15 AM EDT [facility] RDW-SD 55.0(H) 37.0 - 54.0 fl 07/12/2025 5:15 AM EDT [facility] MPV 9.0 6.0 - 12.0 fL 07/12/2025 5:15 AM EDT [facility] Platelets 282 140 - 450 10*3/mm3 07/12/2025 5:15 AM EDT [facility] Blood Venipuncture / Unknown 07/12/2025 4:54 AM EDT 07/12/2025 5:06 AM EDT us Gigi Alcantara MD LAB BLOOD ORDERABLES Final R esult [facility]
[address] [place] [address], * (ABNORMAL) Basic Metabolic Panel (07/12/2025 4:54 AM EDT) Glucose 107(H) 65 - 99 mg/dL 07/12/2025 5:35 AM EDT [facility] BUN 32.6(H) 8.0 - 23.0 mg/dL 07/12/2025 5:35 AM EDT [facility] Creatinine 1.09 0.76 - 1.27 mg/dL 07/12/2025 5:35 AM EDT [facility] Sodium 136 136 - 145 mmol/L 07/12/2025 5:35 AM EDT [facility] Potassium 6.1(HH) 3.5 - 5.2 mmol/L 07/12/2025 5:35 AM EDT [facility] Chloride 105 98 - 107 mmol/L 07/12/2025 5:35 AM EDT [facility] CO2 19.7(L) 22.0 - 29.0 mmol/L 07/12/2025 5:35 AM EDT [facility] Calcium 8.9 8.6 - 10.5 mg/dL 07/12/2025 5:35 AM EDT [facility] BUN/Creatinine Ratio 29.9(H) 7.0 - 25.0 07/12/2025 5:35 AM EDT [facility] Anion Gap 11.3 5.0 - 15.0 mmol/L 07/12/2025 5:35 AM EDT [facility] eGFR 72.6 >60.0 mL/min/1.7 3 07/12/2025 5:35 AM T [facility] Blood Venipuncture / Unknown 07/12/2025 4:54 AM EDT 07/12/2025 5:06 AM EDT [facility]ORATORY - 07/12/2025 5:35 AM EDT GFR Categories in Chronic Kidney [...] does not include race as a factor Gigi Alcantara MD LAB BLOOD ORDERABLES Final R esult [facility]
[address] [place] [address], * Telemetry Scan (07/11/2025 9:50 PM EDT) [facility] ECG ORDERABLES Final Result * (ABNORMAL) POC Glucose Once (07/11/2025 9:09 PM EDT) Glucose 164(H) 70 - 130 mg/dL 07/11/2025 9:11 PM EDT [facility] Comment:Serial Number: [id number]: [id number] Blood 07/11/2025 9:09 PM EDT 07/11/2025 9:11 PM EDT Gigi Alcantara MD POINT OF CARE TEST ORDERABLE S Final Result [facility]
[address] [place] [address], * (ABNORMAL) POC Glucose Once (07/11/2025 4:47 PM EDT) Glucose 144(H) 70 - 130 mg/dL 07/11/2025 4:50 PM EDT [facility] Comment:Serial Number: [id number]: [id number] Blood 07/11/2025 4:47 PM EDT 07/11/2025 4:50 PM EDT Gigi Alcantara MD POINT OF CARE TEST ORDERABLE S Final Result Performing Organization Address [facility]/ZIP Co de Phone Number [facility]
[address] [place] [address], * (ABNORMAL) POC Glucose Once (07/11/2025 11:21 AM EDT) Glucose 174(H) 70 - 130 mg/dL 07/11/2025 11:22 AM EDT [facility] Comment:Serial Number: [id number]: [id number] Blood 07/11/2025 11:2 1 AM EDT 07/11/2025 11:22 AM EDT Gigi Alcantara MD POINT OF CARE TEST ORDERABLE S Final Result Performing Organization Address [facility] Co de Phone Number [facility]
[address] [place] [address], * (ABNORMAL) Potassium (07/11/2025 11:10 AM EDT) Potassium 5.8(H) 3.5 - 5.2 mmol/L 07/11/2025 11:40 AM EDT [facility] Blood Venipuncture / Unknown 07/11/2025 11:10 AM EDT 07/11/2025 11:23 AM EDT Chinyere Hensley APRN LAB BLOOD ORDERABLES Final Result Performing Organization Address City/[facility]/ZIP Co de Phone Number [facility]
[address] [place] [address], * POC Glucose Once (07/11/2025 7:15 AM EDT) Glucose 93 70 - 130 mg/dL 07/11/2025 7:17 AM EDT [facility] Comment:Serial Number: [id number]: [id number] Blood 07/11/2025 7:15 AM EDT 07/11/2025 7:17 AM EDT Gigi Alcantara MD POINT OF CARE TEST ORDERABLE S Final Result [facility]
[address] [place] [address], * ECG 12 Lead Electrolyte Imbalance (07/11/2025 5:52 AM EDT) QT Interval 408 ms ECG QTC Interval 431 ms ECG 07/11/2025 5:52 AM EDT 07/11/2025 1:05 PM EDT Narrative ECG - 07/11/2025 1:05 PM EDT Test Reason : Electrolyte Imbalance Blood Pressure : */* mmHG Vent. 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) Abnormal ECG When compared with ECG of 06-Jul-2025 15:14, Previous ECG has undetermined rhythm, needs review Confirmed by MD Alex, Brent ([id number]) on 07/11/2025 1:05:09 PM Referred By: Confirmed By: Brent Johnson MD Radha López DIABETES NURSE ECG ORDERABLES Final Resul t ECG * Vancomycin, Random (07/11/2025 4:23 AM EDT) Vancomycin Random 16.40 5.00 - 40.00 mcg/mL 07/11/2025 8:41 AM EDT [facility] Blood Venipuncture / Unknown 07/11/2025 4:23 AM EDT 07/11/2025 4:35 AM EDT Narrative [facility] - 07/11/2025 8:41 AM EDT Therapeutic Ranges for Vancomycin Vancomycin Random 5.0-40.0 mcg/mL Vancomycin Trough 5.0-20.0 mcg/mL Vancomycin Peak 20.0-40.0 mcg/mL Osmany Mccann [facility] LAB BLOOD ORDERABLES Final Result Performing Organization Address City/[facility] de Phone Number [facility]
[address] [place] [address], * Magnesium (07/11/2025 4:23 AM EDT) Magnesium 2.1 1.6 - 2.4 mg/dL 07/11/2025 5:27 AM EDT [facility] Blood Venipuncture / Unknown 07/11/2025 4:23 AM EDT 07/11/2025 4:35 AM EDT Gigi Alcantara MD LAB BLOOD ORDERABLES Final R esult [facility]
[address] [place] [address], * (ABNORMAL) CBC (No Diff) (07/11/2025 4:23 AM EDT) WBC 8.79 3.40 - 10.80 10*3/mm3 07/11/2025 4:40 AM EDT [facility] RBC 3.96(L) 4.14 - 5.80 10*6/mm3 07/11/2025 4:40 AM EDT [facility] Hemoglobin 9.5(L) 13.0 - 17.7 g/dL 07/11/2025 4:40 AM EDT [facility] Hematocrit 31.1(L) 37.5 - 51.0 % 07/11/2025 4:40 AM EDT [facility] MCV 78.5(L) 79.0 - 97.0 fL 07/11/2025 4:40 AM EDT [facility] MCH 24.0(L) 26.6 - 33.0 pg 07/11/2025 4:40 AM EDT [facility] MCHC 30.5(L) 31.5 - 35.7 g/dL 07/11/2025 4:40 AM EDT [facility] RDW 19.2(H) 12.3 - 15.4 % 07/11/2025 4:40 AM EDT [facility] RDW-SD 54.0 37.0 - 54.0 fl 07/11/2025 4:40 AM EDT [facility] MPV 9.1 6.0 - 12.0 fL 07/11/2025 4:40 AM EDT [facility] Platelets 255 140 - 450 10*3/mm3 07/11/2025 4:40 AM EDT [facility] Blood Venipuncture / Unknown 07/11/2025 4:23 AM EDT 07/11/2025 4:36 AM EDT Gigi Alcantara MD LAB BLOOD ORDERABLES Final R esult [facility]
[address] [place] [address], * (ABNORMAL) Basic Metabolic Panel (07/11/2025 4:23 AM EDT) Glucose 133(H) 65 - 99 mg/dL 07/11/2025 5:27 AM EDT [facility] BUN 26.6(H) 8.0 - 23.0 mg/dL 07/11/2025 5:27 AM EDT [facility] Creatinine 1.09 0.76 - 1.27 mg/dL 07/11/2025 5:27 AM EDT [facility] Sodium 135(L) 136 - 145 mmol/L 07/11/2025 5:27 AM EDT [facility] Potassium 6.2(HH) 3.5 - 5.2 mmol/L 07/11/2025 5:27 AM EDT [facility] Chloride 104 98 - 107 mmol/L 07/11/2025 5:27 AM EDT [facility] CO2 22.0 22.0 - 29.0 mmol/L 07/11/2025 5:27 AM EDT [facility] Calcium 8.7 8.6 - 10.5 mg/dL 07/11/2025 5:27 AM EDT [facility] BUN/Creatinine Ratio 24.4 7.0 - 25.0 07/11/2025 5:27 AM EDT [facility] Anion Gap 9.0 5.0 - 15.0 mmol/L 07/11/2025 5:27 AM EDT [facility] eGFR 72.6 >60.0 mL/min/1.7 3 07/11/2025 5:27 AM EDT [facility] Blood Venipuncture / Unknown 07/11/2025 4:23 AM EDT 07/11/2025 4:35 AM EDT Narrative [facility] - 07/11/2025 5:27 AM EDT GFR Categories in Chronic Kidney [...] does not include race as a factor Gigi Alcantara MD LAB BLOOD ORDERABLES Final R esult Performing Organization Address [facility] Co de Phone Number [facility]
[address] [place] [address], * (ABNORMAL) POC Glucose Once (07/10/2025 7:39 PM EDT) Glucose 150(H) 70 - 130 mg/dL 07/10/2025 7:42 PM EDT [facility] Comment:Serial Number: [id number]: [id number] Blood 07/10/2025 7:39 PM EDT 07/10/2025 7:42 PM EDT Gigi Alcantara MD POINT OF CARE TEST ORDERABLE S Final Result Performing Organization Address [facility] Co de Phone Number [facility]
[address] [place] [address], * Telemetry Scan (07/10/2025 7:34 PM EDT) [facility] ECG ORDERABLES Final Result * POC Glucose Once (07/10/2025 4:49 PM EDT) Glucose 130 70 - 130 mg/dL 07/10/2025 5:02 PM EDT [facility] Comment:Serial Number: [id number]: [id number] Blood 07/10/2025 4:49 PM EDT 07/10/2025 5:02 PM EDT Gigi Alcantara MD POINT OF CARE TEST ORDERABLE S Final Result Performing Organization Address City/[facility]/ZIP Co de Phone Number [facility]
[address] [place] [address], * (ABNORMAL) POC Glucose Once (07/10/2025 11:53 AM EDT) Glucose 237(H) 70 - 130 mg/dL 07/10/2025 11:55 AM EDT [facility] Comment:Serial Number: [id number]: [id number] Blood 07/10/2025 11:5 3 AM EDT 07/10/2025 11:55 AM EDT Gigi Alcantara MD POINT OF CARE TEST ORDERABLE S Final Result Performing Organization Address [facility]/ZIP Co de Phone Number [facility]
[address] [place] [address], * POC Glucose Once (07/10/2025 7:27 AM EDT) Glucose 82 70 - 130 mg/dL 07/10/2025 7:29 AM EDT [facility] Comment:Serial Number: [id number]: [id number] Blood 07/10/2025 7:27 AM EDT 07/10/2025 7:29 AM EDT Gigi Alcantara MD POINT OF CARE TEST ORDERABLE S Final Result [facility]
[address] [place] [address], * (ABNORMAL) POC Glucose Once (07/09/2025 7:41 PM EDT) Glucose 133(H) 70 - 130 mg/dL 07/09/2025 7:56 PM EDT [facility] Comment:Serial Number: [id number]: [id number] Blood 07/09/2025 7:41 PM EDT 07/09/2025 7:56 PM EDT Gigi Alcantara MD POINT OF CARE TEST ORDERABLE S Final Result Performing Organization Address [facility]/ZIP Co de Phone Number [facility]
[address] [place] [address], * POC Glucose Once (07/09/2025 4:39 PM EDT) Glucose 92 70 - 130 mg/dL 07/09/2025 4:41 PM EDT [facility] Comment:Serial Number: [id number]: [id number] Blood 07/09/2025 4:39 PM EDT 07/09/2025 4:41 PM EDT us Gigi Alcantara MD POINT OF CARE TEST ORDERABLE S Final Result Performing Organization Address [facility] Co de Phone Number [facility]
[address] [place] [address], * POC Glucose Once (07/09/2025 11:12 AM EDT) Glucose 130 70 - 130 mg/dL 07/09/2025 11:14 AM EDT [facility] Comment:Serial Number: [id number]: [id number] Blood 07/09/2025 11:1 2 AM EDT 07/09/2025 11:14 AM EDT us Gigi Alcantara MD POINT OF CARE TEST ORDERABLE S Final Result [facility]
[address] [place] [address], * POC Glucose Once (07/09/2025 8:02 AM EDT) Glucose 81 70 - 130 mg/dL 07/09/2025 8:04 AM EDT [facility] Comment:Serial Number: [id number]: [id number] Blood 07/09/2025 8:02 AM EDT 07/09/2025 8:04 AM EDT Gigi Alcantara MD POINT OF CARE TEST ORDERABLE S Final Result Performing Organization Address [facility] Co de Phone Number [facility]
[address] [place] [address], * (ABNORMAL) POC Glucose Once (07/09/2025 7:46 AM EDT) Glucose 63(L) 70 - 130 mg/dL 07/09/2025 7:48 AM EDT [facility] Comment:Serial Number: [id number]: [id number] Blood 07/09/2025 7:4 6 AM EDT 07/09/2025 7:48 AM EDT Gigi Alcantara MD POINT OF CARE TEST ORDERABLE S Final Result [facility]
[address] [place] [address], [place] [phone] * (ABNORMAL) POC Glucose Once (07/09/2025 7:39 AM EDT) Glucose 55(L) 70 - 130 mg/dL 07/09/2025 7:41 AM EDT [facility] Comment:Serial Number: [id number]: [id number] Blood 07/09/2025 7:39 AM EDT 07/09/2025 7:41 AM EDT Gigi Alcantara MD POINT OF CARE TEST ORDERABLE S Final Result Performing Organization Address [facility] de Phone Number [facility]
[address] [place] [address], * (ABNORMAL) POC Glucose Once (07/09/2025 7:15 AM EDT) Glucose 53(L) 70 - 130 mg/dL 07/09/2025 7:17 AM EDT [facility] Comment:Serial Number: [id number]: [id number] Blood 07/09/2025 7:15 AM EDT 07/09/2025 7:17 AM EDT Gigi Alcantara MD POINT OF CARE TEST ORDERABLE S Final Result Performing Organization Address [facility] de Phone Number [facility]
[address] [place] [address], * Magnesium (07/09/2025 7:12 AM EDT) Magnesium 2.1 1.6 - 2.4 mg/dL 07/09/2025 7:58 AM EDT [facility] Blood Venipuncture / Unknown 07/09/2025 7:12 AM EDT 07/09/2025 7:27 AM EDT us Gigi Alcantara MD LAB BLOOD ORDERABLES Final R esult Performing Organization Address [facility] Co de Phone Number [facility]
[address] [place] [address], * (ABNORMAL) CBC (No Diff) (07/09/2025 7:12 AM EDT) WBC 9.80 3.40 - 10.80 10*3/mm3 07/09/2025 7:33 AM EDT [facility] RBC 3.94(L) 4.14 - 5.80 10*6/mm3 07/09/2025 7:33 AM EDT [facility] Hemoglobin 9.5(L) 13.0 - 17.7 g/dL 07/09/2025 7:33 AM EDT [facility] Hematocrit 30.7(L) 37.5 - 51.0 % 07/09/2025 7:33 AM EDT [facility] MCV 77.9(L) 79.0 - 97.0 fL 07/09/2025 7:33 AM EDT [facility] MCH 24.1(L) 26.6 - 33.0 pg 07/09/2025 7:33 AM EDT [facility] MCHC 30.9(L) 31.5 - 35.7 g/dL 07/09/2025 7:33 AM EDT [facility] RDW 18.8(H) 12.3 - 15.4 % 07/09/2025 7:33 AM EDT [facility] RDW-SD 51.2 37.0 - 54.0 fl 07/09/2025 7:33 AM EDT [facility] MPV 8.8 6.0 - 12.0 fL 07/09/2025 7:33 AM EDT [facility] Platelets 278 140 - 450 10*3/mm3 07/09/2025 7:33 AM EDT [facility] Blood Venipuncture / Unknown 07/09/2025 7:12 AM EDT 07/09/2025 7:27 AM EDT Law EspinozaD LAB BLOOD ORDERABLES Final Re sult [facility]
[address] [place] [address], * (ABNORMAL) Basic Metabolic Panel (07/09/2025 7:12 AM EDT) Glucose 53(L) 65 - 99 mg/dL 07/09/2025 7:58 AM EDT [facility] BUN 21.6 8.0 - 23.0 mg/dL 07/09/2025 7:58 AM EDT [facility] Creatinine 1.05 0.76 - 1.27 mg/dL 07/09/2025 7:58 AM EDT [facility] Sodium 136 136 - 145 mmol/L 07/09/2025 7:58 AM EDT [facility] Potassium 5.8(H) 3.5 - 5.2 mmol/L 07/09/2025 7:58 AM EDT [facility] Chloride 106 98 - 107 mmol/L 07/09/2025 7:58 AM EDT [facility] CO2 21.8(L) 22.0 - 29.0 mmol/L 07/09/2025 7:58 AM EDT [facility] Calcium 8.7 8.6 - 10.5 mg/dL 07/09/2025 7:58 AM EDT [facility] BUN/Creatinine Ratio 20.6 7.0 - 25.0 07/09/2025 7:58 AM EDT [facility] Anion Gap 8.2 5.0 - 15.0 mmol/L 07/09/2025 7:58 AM [facility] eGFR 75.9 >60.0 mL/min/1.7 3 07/09/2025 7:58 AM T [facility] Blood Venipuncture / Unknown 07/09/2025 7:12 AM EDT 07/09/2025 7:27 AM EDT [facility] - 07/09/2025 7:58 AM EDT GFR Categories in Chronic Kidney [...] does not include race as a factor Law Matthew PharmD LAB BLOOD ORDERABLES Final Re sult [facility]
[address] [place] [address], * (ABNORMAL) Vancomycin, Trough (07/09/2025 7:12 AM EDT) Vancomycin Trough 31.40(HH) 5.00 - 20.00 mcg/mL 07/09/2025 8:03 AM EDT [facility] Blood Venipuncture / Unknown 07/09/2025 7:12 AM EDT 07/09/2025 7:27 AM EDT Narrative [facility] - 07/09/2025 8:03 AM EDT Therapeutic Ranges for Vancomycin Vancomycin Random 5.0-40.0 mcg/mL Vancomycin Trough 5.0-20.0 mcg/mL Vancomycin Peak 20.0-40.0 mcg/mL Law Matthew PharmD LAB BLOOD ORDERABLES Final Re sult [facility]
[address] [place] [address], * POC Glucose Once (07/08/2025 8:39 PM EDT) Glucose 128 70 - 130 mg/dL 07/08/2025 8:41 PM EDT [facility] Comment:Serial Number: [id number]: [id number] Blood 07/08/2025 8:39 PM EDT 07/08/2025 8:41 PM EDT Gigi Alcantara MD POINT OF CARE TEST ORDERABLE S Final Result Performing Organization Address City/[facility]/ZIP Co de Phone Number [facility]
[address] [place] [address], * (ABNORMAL) POC Glucose Once (07/08/2025 4:38 PM EDT) Glucose 142(H) 70 - 130 mg/dL 07/08/2025 4:41 PM EDT [facility] Comment:Serial Number: [id number]: [id number] Blood 07/08/2025 4:38 PM EDT 07/08/2025 4:41 PM EDT Gigi Alcantara MD POINT OF CARE TEST ORDERABLE S Final Result Performing Organization Address [facility] Co de Phone Number [facility]
[address] [place] [address], * (ABNORMAL) Basic Metabolic Panel (07/08/2025 2:18 PM EDT) Glucose 89 65 - 99 mg/dL 07/08/2025 2:58 PM EDT [facility] BUN 18.7 8.0 - 23.0 mg/dL 07/08/2025 2:58 PM EDT [facility] Creatinine 0.91 0.76 - 1.27 mg/dL 07/08/2025 2:58 PM EDT [facility] Sodium 136 136 - 145 mmol/L 07/08/2025 2:58 PM EDT [facility] Potassium 5.9(H) 3.5 - 5.2 mmol/L 07/08/2025 2:58 PM EDT [facility] Chloride 104 98 - 107 mmol/L 07/08/2025 2:58 PM EDT [facility] CO2 21.1(L) 22.0 - 29.0 mmol/L 07/08/2025 2:58 PM EDT [facility] Calcium 8.8 8.6 - 10.5 mg/dL 07/08/2025 2:58 PM EDT [facility] BUN/Creatinine Ratio 20.5 7.0 - 25.0 07/08/2025 2:58 PM EDT [facility] Anion Gap 10.9 5.0 - 15.0 mmol/L 07/08/2025 2:58 PM EDT [facility] eGFR 90.1 >60.0 mL/min/1.7 3 07/08/2025 2:58 PM EDT [facility] Blood Venipuncture / Unknown 07/08/2025 2:18 PM EDT 07/08/2025 2:33 PM EDT Narrative [facility] - 07/08/2025 2:58 PM EDT GFR Categories in Chronic Kidney Disease [...] not include race as a factor us Gigi Alcantara MD LAB BLOOD ORDERABLES Final R esult [facility]
[address] [place] [address], * POC Glucose Once (07/08/2025 12:12 PM EDT) Glucose 108 70 - 130 mg/dL 07/08/2025 12:14 PM EDT [facility] Comment:Serial Number: [id number]: [id number] Blood 07/08/2025 12:1 2 PM EDT 07/08/2025 12:14 PM EDT us Gigi Alcantara MD POINT OF CARE TEST ORDERABLE S Final Result Performing Organization Address [facility] Co de Phone Number [facility]
[address] [place] [address], * POC Glucose Once (07/08/2025 7:50 AM EDT) Glucose 103 70 - 130 mg/dL 07/08/2025 7:52 AM EDT [facility] Comment:Serial Number: [id number]: [id number] Blood 07/08/2025 7:50 AM EDT 07/08/2025 7:52 AM EDT Gigi Alcantara MD POINT OF CARE TEST ORDERABLE S Final Result Performing Organization Address [facility] de Phone Number [facility]
[address] [place] [address], * Magnesium (07/08/2025 5:42 AM EDT) Magnesium 2.2 1.6 - 2.4 mg/dL 07/08/2025 8:25 AM EDT [facility] Blood Venipuncture / Unknown 07/08/2025 5:42 AM EDT 07/08/2025 7:57 AM EDT Gigi Alcantara MD LAB BLOOD ORDERABLES Final R esult Performing Organization Address City/[facility]/ZIP Co de Phone Number [facility]
[address] [place] [address], * (ABNORMAL) CBC (No Diff) (07/08/2025 5:42 AM EDT) WBC 7.37 3.40 - 10.80 10*3/mm3 07/08/2025 8:06 AM EDT [facility] RBC 4.19 4.14 - 5.80 10*6/mm3 07/08/2025 8:06 AM EDT [facility] Hemoglobin 9.7(L) 13.0 - 17.7 g/dL 07/08/2025 8:06 AM EDT [facility] Hematocrit 35.5(L) 37.5 - 51.0 % 07/08/2025 8:06 AM EDT [facility] MCV 84.7 79.0 - 97.0 fL 07/08/2025 8:06 AM EDT [facility] MCH 23.2(L) 26.6 - 33.0 pg 07/08/2025 8:06 AM EDT [facility] MCHC 27.3(L) 31.5 - 35.7 g/dL 07/08/2025 8:06 AM EDT [facility] RDW 18.8(H) 12.3 - 15.4 % 07/08/2025 8:06 AM EDT [facility] RDW-SD 55.9(H) 37.0 - 54.0 fl 07/08/2025 8:06 AM EDT [facility] MPV 9.7 6.0 - 12.0 fL 07/08/2025 8:06 AM EDT [facility] Platelets 281 140 - 450 10*3/mm3 07/08/2025 8:06 AM EDT [facility] Blood Venipuncture / Unknown 07/08/2025 5:42 AM EDT 07/08/2025 7:57 AM EDT us Gigi Alcantara MD LAB BLOOD ORDERABLES Final R esult [facility]
[address] [place] [address], * (ABNORMAL) Basic Metabolic Panel (07/08/2025 5:42 AM EDT) [facility] Glucose 120(H) 65 - 99 mg/dL 07/08/2025 8:25 AM [facility] BUN 19.5 8.0 - 23.0 mg/dL 07/08/2025 8:25 AM T [facility] Creatinine 0.94 0.76 - 1.27 mg/dL 07/08/2025 8:25 AM [facility] Sodium 131(L) 136 - 145 mmol/L 07/08/2025 8:25 AM T [facility] Potassium 6.0(H) 3.5 - 5.2 mmol/L 07/08/2025 8:25 AM [facility] Comment:Specimen hemolyzed. Result may be falsely elevated. Chloride 104 98 - 107 mmol/L 07/08/2025 8:25 AM [facility] CO2 17.4(L) 22.0 - 29.0 mmol/L 07/08/2025 8:25 AM [facility] Calcium 8.5(L) 8.6 - 10.5 mg/dL 07/08/2025 8:25 AM [facility] BUN/Creatinine Ratio 20.7 7.0 - 25.0 07/08/2025 8:25 AM [facility] Anion Gap 9.6 5.0 - 15.0 mmol/L 07/08/2025 8:25 AM [facility] eGFR 86.7 >60.0 mL/min/1.7 3 07/08/2025 8:25 AM [facility] Blood Venipuncture / Unknown 07/08/2025 5:42 AM EDT 07/08/2025 7:57 AM T [facility] - 07/08/2025 8:25 AM EDT GFR Categories in Chronic Kidney [...] does not include race as a factor Vaughn Hollingsworth DO LAB BLOOD ORDERABLES Final Resul t Performing Organization Address City/[facility]/ZIP Co de Phone Number [facility]
[address] [place] [address], * (ABNORMAL) POC Glucose Once (07/07/2025 7:12 PM EDT) Glucose 135(H) 70 - 130 mg/dL 07/07/2025 7:15 PM EDT [facility] Comment:Serial Number: [id number]: [id number] Blood 07/07/2025 7:12 PM EDT 07/07/2025 7:15 PM EDT Gigi Alcantara MD POINT OF CARE TEST ORDERABLE S Final Result Performing Organization Address [facility] Co de Phone Number [facility]
[address] [place] [address], * (ABNORMAL) POC Glucose Once (07/07/2025 4:30 PM EDT) Glucose 163(H) 70 - 130 mg/dL 07/07/2025 4:32 PM EDT [facility] Comment:Serial Number: [id number]: [id number] Blood 07/07/2025 4:30 PM EDT 07/07/2025 4:32 PM EDT us Ggii Alcantara MD POINT OF CARE TEST ORDERABLE S Final Result Performing Organization Address City/[facility] Co de Phone Number [facility]
[address] [place] [address], * (ABNORMAL) POC Glucose Once (07/07/2025 11:50 AM EDT) Glucose 135(H) 70 - 130 mg/dL 07/07/2025 11:53 AM EDT [facility] Comment:Serial Number: [id number]: [id number] Blood 07/07/2025 11:5 0 AM EDT 07/07/2025 11:53 AM EDT Gigi Alcantara MD POINT OF CARE TEST ORDERABLE S Final Result [facility]
[address] [place] [address], * POC Glucose Once (07/07/2025 7:34 AM EDT) Glucose 108 70 - 130 mg/dL 07/07/2025 7:37 AM EDT [facility] Comment:Serial Number: [id number]: [id number] Blood 07/07/2025 7:34 AM EDT 07/07/2025 7:37 AM EDT Gigi Alcantara MD POINT OF CARE TEST ORDERABLE S Final Result Performing Organization Address [facility]/ZIP Co de Phone Number [facility]
[address] [place] [address], * Magnesium (07/07/2025 3:43 AM EDT) Magnesium 2.0 1.6 - 2.4 mg/dL 07/07/2025 4:50 AM EDT [facility] Blood Venipuncture / Unknown 07/07/2025 3:43 AM EDT 07/07/2025 4:05 AM EDT Gigi Alcantara MD LAB BLOOD ORDERABLES Final R esult [facility]
[address] [place] [address], * (ABNORMAL) CBC (No Diff) (07/07/2025 3:43 AM EDT) WBC 7.72 3.40 - 10.80 10*3/mm3 07/07/2025 4:32 AM EDT [facility] RBC 3.91(L) 4.14 - 5.80 10*6/mm3 07/07/2025 4:32 AM EDT [facility] Hemoglobin 9.3(L) 13.0 - 17.7 g/dL 07/07/2025 4:32 AM EDT [facility] Hematocrit 30.9(L) 37.5 - 51.0 % 07/07/2025 4:32 AM EDT [facility] MCV 79.0 79.0 - 97.0 fL 07/07/2025 4:32 AM EDT [facility] MCH 23.8(L) 26.6 - 33.0 pg 07/07/2025 4:32 AM EDT [facility] MCHC 30.1(L) 31.5 - 35.7 g/dL 07/07/2025 4:32 AM EDT [facility] RDW 18.5(H) 12.3 - 15.4 % 07/07/2025 4:32 AM EDT [facility] RDW-SD 50.7 37.0 - 54.0 fl 07/07/2025 4:32 AM EDT [facility] MPV 9.0 6.0 - 12.0 fL 07/07/2025 4:32 AM EDT [facility] Platelets 275 140 - 450 10*3/mm3 07/07/2025 4:32 AM EDT [facility] Blood Venipuncture / Unknown 07/07/2025 3:43 AM EDT 07/07/2025 4:03 AM EDT Gigi Alcantara MD LAB BLOOD ORDERABLES Final R esult [facility]
[address] [place] [address], * (ABNORMAL) Basic Metabolic Panel (07/07/2025 3:43 AM EDT) Glucose 171(H) 65 - 99 mg/dL 07/07/2025 4:50 AM EDT [facility] BUN 18.3 8.0 - 23.0 mg/dL 07/07/2025 4:50 AM EDT [facility] Creatinine 1.02 0.76 - 1.27 mg/dL 07/07/2025 4:50 AM EDT [facility] Sodium 134(L) 136 - 145 mmol/L 07/07/2025 4:50 AM EDT [facility] Potassium 5.2 3.5 - 5.2 mmol/L 07/07/2025 4:50 AM EDT [facility] Chloride 101 98 - 107 mmol/L 07/07/2025 4:50 AM EDT [facility] CO2 22.2 22.0 - 29.0 mmol/L 07/07/2025 4:50 AM EDT [facility] Calcium 8.6 8.6 - 10.5 mg/dL 07/07/2025 4:50 AM EDT [facility] BUN/Creatinine Ratio 17.9 7.0 - 25.0 07/07/2025 4:50 AM EDT [facility] Anion Gap 10.8 5.0 - 15.0 mmol/L 07/07/2025 4:50 AM EDT [facility] eGFR 78.6 >60.0 mL/min/1.7 3 07/07/2025 4:50 AM EDT [facility] Blood Venipuncture / Unknown 07/07/2025 3:43 AM EDT 07/07/2025 4:05 AM EDT Narrative [facility] - 07/07/2025 4:50 AM EDT GFR Categories in Chronic Kidney [...] does not include race as a factor Vaughn Hollingsworth DO LAB BLOOD ORDERABLES Final Resul t Performing Organization Address City/[facility] Co de Phone Number [facility]
[address] [place] [address], * (ABNORMAL) POC Glucose Once (07/06/2025 7:31 PM EDT) Glucose 147(H) 70 - 130 mg/dL 07/06/2025 7:33 PM EDT [facility] Comment:Serial Number: [id number]: [id number] Nova Comment 1 Notified Patients RN 07/06/2025 7:33 PM EDT [facility] Nova Comment 2 Follow unit protocol 07/06/2025 7:33 PM EDT [facility] Blood 07/06/2025 7:31 PM EDT 07/06/2025 7:33 PM EDT Gigi Alcantara MD POINT OF CARE TEST ORDERABLE S Final Result Performing Organization Address [facility] de Phone Number [facility]
[address] [place] [address], * (ABNORMAL) POC Glucose Once (07/06/2025 5:19 PM EDT) Glucose 137(H) 70 - 130 mg/dL 07/06/2025 5:22 PM EDT [facility] Comment:Serial Number: [id number]: [id number] Blood 07/06/2025 5:19 PM EDT 07/06/2025 5:22 PM EDT Gigi Alcantara MD POINT OF CARE TEST ORDERABLE S Final Result Performing Organization Address City/[facility]/ZIP Co de Phone Number [facility]
[address] [place] [address], * POC Glucose Once (07/06/2025 4:27 PM EDT) Glucose 85 70 - 130 mg/dL 07/06/2025 4:29 PM EDT [facility] Comment:Serial Number: [id number]: [id number] Blood 07/06/2025 4:27 PM EDT 07/06/2025 4:29 PM EDT Gigi Alcantara MD POINT OF CARE TEST ORDERABLE S Final Result Performing Organization Address [facility] Co de Phone Number [facility]
[address] [place] [address], * POC Glucose Once (07/06/2025 3:26 PM EDT) Glucose 116 70 - 130 mg/dL 07/06/2025 3:28 PM EDT [facility] Comment:Serial Number: [id number]: [id number] Blood 07/06/2025 3:26 PM EDT 07/06/2025 3:28 PM EDT Gigi Alcantara MD POINT OF CARE TEST ORDERABLE S Final Result Performing Organization Address City/[facility]/ZIP Co de Phone Number [facility]
[address] [place] [address], * ECG 12 Lead Electrolyte Imbalance (07/06/2025 3:14 PM EDT) QT Interval 402 ms ECG QTC Interval 427 ms ECG 07/06/2025 3:14 PM EDT 07/08/2025 5:45 PM EDT Narrative ECG - 07/08/2025 5:45 PM EDT Test Reason : Electrolyte Imbalance Blood Pressure : */* mmHG Vent. Rate : 68 BPM Atrial Rate : 288 BPM P-R Int : 158 ms QRS Dur : 100 ms QT Int : 402 ms P-R-T Axes : 77 25 43 degrees QTcB Int : 427 ms Normal sinus rhythm Confirmed by MIKY FERNANDEZ ([id number]) on 07/08/2025 5:45:01 PM Referred By: Confirmed By: MIKY FERNANDEZ Procedure Note Miky Fernandez, DO - 07/08/2025 Test Reason : Electrolyte Imbalance Blood Pressure : */* mmHG Vent. Rate : 68 BPM Atrial Rate : 288 BPM P-R Int : 158 ms QRS Dur : 100 ms QT Int : 402 ms P-R-T Axes : 77 25 43 degrees QTcB Int : 427 ms Normal sinus rhythm Confirmed by MIKY FERNANDEZ ([id number]) on 07/08/2025 5:45:01 PM Referred By: Confirmed By: MIKY FERNANDEZ Gigi Alcantara MD ECG ORDERABLES Final Result Performing Organization Address City/[facility]/ZIP Co de Phone Number ECG * Magnesium (07/06/2025 12:46 PM EDT) Pathologist [facility] Magnesium 2.1 1.6 - 2.4 mg/dL 07/06/2025 2:27 PM EDT [facility] Blood Venipuncture / Unknown 07/06/2025 12:46 PM EDT 07/06/2025 1:36 PM EDT Gigi Alcantara MD LAB BLOOD ORDERABLES Final R esult [facility]
[address] [place] [address], * (ABNORMAL) CBC (No Diff) (07/06/2025 12:46 PM EDT) WBC 8.43 3.40 - 10.80 10*3/mm3 07/06/2025 1:44 PM EDT [facility] RBC 4.00(L) 4.14 - 5.80 10*6/mm3 07/06/2025 1:44 PM EDT [facility] Hemoglobin 9.5(L) 13.0 - 17.7 g/dL 07/06/2025 1:44 PM EDT [facility] Hematocrit 31.1(L) 37.5 - 51.0 % 07/06/2025 1:44 PM EDT [facility] MCV 77.8(L) 79.0 - 97.0 fL 07/06/2025 1:44 PM EDT [facility] MCH 23.8(L) 26.6 - 33.0 pg 07/06/2025 1:44 PM EDT [facility] MCHC 30.5(L) 31.5 - 35.7 g/dL 07/06/2025 1:44 PM EDT [facility] RDW 18.2(H) 12.3 - 15.4 % 07/06/2025 1:44 PM EDT [facility] RDW-SD 49.7 37.0 - 54.0 fl 07/06/2025 1:44 PM EDT [facility] MPV 9.2 6.0 - 12.0 fL 07/06/2025 1:44 PM EDT [facility] Platelets 300 140 - 450 10*3/mm3 07/06/2025 1:44 PM EDT [facility] Blood Venipuncture / Unknown 07/06/2025 12:46 PM EDT 07/06/2025 1:35 PM EDT Gigi Alcantara MD LAB BLOOD ORDERABLES Final R esult [facility]
[address] [place] [address], * (ABNORMAL) Basic Metabolic Panel (07/06/2025 12:46 PM EDT) Glucose 119(H) 65 - 99 mg/dL 07/06/2025 2:27 PM EDT [facility] BUN 16.5 8.0 - 23.0 mg/dL 07/06/2025 2:27 PM EDT [facility] Creatinine 1.02 0.76 - 1.27 mg/dL 07/06/2025 2:27 PM EDT [facility] Sodium 134(L) 136 - 145 mmol/L 07/06/2025 2:27 PM EDT [facility] Potassium 6.2(HH) 3.5 - 5.2 mmol/L 07/06/2025 2:27 PM EDT [facility] Chloride 103 98 - 107 mmol/L 07/06/2025 2:27 PM EDT [facility] CO2 23.9 22.0 - 29.0 mmol/L 07/06/2025 2:27 PM EDT [facility] Calcium 8.5(L) 8.6 - 10.5 mg/dL 07/06/2025 2:27 PM EDT [facility] BUN/Creatinine Ratio 16.2 7.0 - 25.0 07/06/2025 2:27 PM EDT [facility] Anion Gap 7.1 5.0 - 15.0 mmol/L 07/06/2025 2:27 PM EDT [facility] eGFR 78.6 >60.0 mL/min/1.7 3 07/06/2025 2:27 PM EDT [facility] Blood Venipuncture / Unknown 07/06/2025 12:46 PM EDT 07/06/2025 1:36 PM EDT Narrative [facility] - 07/06/2025 2:27 PM EDT GFR Categories in Chronic Kidney Disease [...] does not include race as a factor Vaughn Hollingsworth DO LAB BLOOD ORDERABLES Final Resul t Performing Organization Address City/[facility]/ZIP Co de Phone Number [facility]
[address] [place] [address], * POC Glucose Once (07/06/2025 11:37 AM EDT) Glucose 125 70 - 130 mg/dL 07/06/2025 11:39 AM EDT [facility] Comment:Serial Number: [id number]: [id number] Blood 07/06/2025 11:3 7 AM EDT 07/06/2025 11:39 AM EDT Gigi Alcantara MD POINT OF CARE TEST ORDERABLE S Final Result Performing Organization Address City/[facility]/ZIP Co de Phone Number [facility]
[address] [place] [address], * (ABNORMAL) POC Glucose Once (07/06/2025 7:19 AM EDT) Glucose 134(H) 70 - 130 mg/dL 07/06/2025 7:21 AM EDT [facility] Comment:Serial Number: [id number]: [id number] Blood 07/06/2025 7:19 AM EDT 07/06/2025 7:21 AM EDT us Gigi Alcantara MD POINT OF CARE TEST ORDERABLE S Final Result [facility]
[address] [place] [address], * (ABNORMAL) POC Glucose Once (07/05/2025 7:54 PM EDT) Glucose 144(H) 70 - 130 mg/dL 07/05/2025 7:56 PM EDT [facility] Comment:Serial Number: [id number]: [id number] Blood 07/05/2025 7:54 PM EDT 07/05/2025 7:56 PM EDT Gigi Alcantara MD POINT OF CARE TEST ORDERABLE S Final Result Performing Organization Address [facility] Co de Phone Number [facility]
[address] [place] [address], * (ABNORMAL) POC Glucose Once (07/05/2025 4:45 PM EDT) Glucose 143(H) 70 - 130 mg/dL 07/05/2025 4:47 PM EDT [facility] Comment:Serial Number: [id number]: [id number] Blood 07/05/2025 4:45 PM EDT 07/05/2025 4:47 PM EDT Gigi Alcantara MD POINT OF CARE TEST ORDERABLE S Final Result Performing Organization Address City/[facility] Co de Phone Number [facility]
[address] [place] [address], * (ABNORMAL) POC Glucose Once (07/05/2025 12:26 PM EDT) Glucose 161(H) 70 - 130 mg/dL 07/05/2025 12:28 PM EDT [facility] Comment:Serial Number: [id number]: [id number] Blood 07/05/2025 12:2 6 PM EDT 07/05/2025 12:28 PM EDT Gigi Alcantara MD POINT OF CARE TEST ORDERABLE S Final Result Performing Organization Address City/[facility] Co de Phone Number [facility]
[address] [place] [address], * (ABNORMAL) POC Glucose Once (07/05/2025 7:25 AM EDT) Glucose 141(H) 70 - 130 mg/dL 07/05/2025 7:27 AM EDT [facility] Comment:Serial Number: [id number]: [id number] Blood 07/05/2025 7:25 AM EDT 07/05/2025 7:27 AM EDT Gigi Alcantara MD POINT OF CARE TEST ORDERABLE S Final Result Performing Organization Address [facility] Co de Phone Number [facility]
[address] [place] [address], * (ABNORMAL) Basic Metabolic Panel (07/05/2025 4:34 AM EDT) Glucose 142(H) 65 - 99 mg/dL 07/05/2025 5:08 AM EDT [facility] BUN 14.0 8.0 - 23.0 mg/dL 07/05/2025 5:08 AM EDT [facility] Creatinine 0.83 0.76 - 1.27 mg/dL 07/05/2025 5:08 AM EDT [facility] Sodium 134(L) 136 - 145 mmol/L 07/05/2025 5:08 AM EDT [facility] Potassium 5.1 3.5 - 5.2 mmol/L 07/05/2025 5:08 AM EDT [facility] Chloride 102 98 - 107 mmol/L 07/05/2025 5:08 AM EDT [facility] CO2 22.9 22.0 - 29.0 mmol/L 07/05/2025 5:08 AM EDT [facility] Calcium 8.6 8.6 - 10.5 mg/dL 07/05/2025 5:08 AM EDT [facility] BUN/Creatinine Ratio 16.9 7.0 - 25.0 07/05/2025 5:08 AM EDT [facility] Anion Gap 9.1 5.0 - 15.0 mmol/L 07/05/2025 5:08 AM EDT [facility] eGFR 93.6 >60.0 mL/min/1.7 3 07/05/2025 5:08 AM EDT [facility] Blood Venipuncture / Unknown 07/05/2025 4:34 AM EDT 07/05/2025 4:45 AM EDT [facility] - 07/05/2025 5:08 AM EDT GFR Categories in Chronic Kidney [...] not include race as a factor us Vaughn S Iltis DO LAB BLOOD ORDERABLES Final Resul t [facility]
[address] [place] [address], * (ABNORMAL) POC Glucose Once (07/04/2025 8:13 PM EDT) Glucose 239(H) 70 - 130 mg/dL 07/04/2025 8:15 PM EDT [facility] Comment:Serial Number: [id number]: [id number] Blood 07/04/2025 8:13 PM EDT 07/04/2025 8:15 PM EDT Gigi Alcantara MD POINT OF CARE TEST ORDERABLE S Final Result Performing Organization Address City/[facility]/ZIP Co de Phone Number [facility]
[address] [place] [address], * (ABNORMAL) POC Glucose Once (07/04/2025 4:46 PM EDT) Glucose 167(H) 70 - 130 mg/dL 07/04/2025 4:47 PM EDT [facility] Comment:Serial Number: [id number]: [id number] Blood 07/04/2025 4:46 PM EDT 07/04/2025 4:47 PM EDT Gigi Alcantara MD POINT OF CARE TEST ORDERABLE S Final Result Performing Organization Address [facility] Co de Phone Number [facility]
[address] [place] [address], * POC Glucose Once (07/04/2025 12:03 PM EDT) Glucose 86 70 - 130 mg/dL 07/04/2025 12:05 PM EDT [facility] Comment:Serial Number: [id number]: [id number] Blood 07/04/2025 12:0 3 PM EDT 07/04/2025 12:05 PM EDT Gigi Alcantara MD POINT OF CARE TEST ORDERABLE S Final Result Performing Organization Address City/[facility]/ZIP Co de Phone Number [facility]
[address] [place] [address], * POC Glucose Once (07/04/2025 7:32 AM EDT) Glucose 99 70 - 130 mg/dL 07/04/2025 7:34 AM EDT [facility] Comment:Serial Number: [id number]: [id number] Blood 07/04/2025 7:32 AM EDT 07/04/2025 7:34 AM EDT Gigi Alcantara MD POINT OF CARE TEST ORDERABLE S Final Result [facility]
[address] [place] [address], * EEG AWAKE OR DROWSY PORTABLE (07/04/2025 7:10 AM EDT) Impressions NEUROLOGY - 07/04/2025 8:24 AM EDT Diffuse cerebral dysfunction of mild degree, nonspecific but most commonly seen due to toxic/metabolic cause Left arm tremoring is nonepileptic This report is transcribed using the [employer] dictation system. Narrative NEUROLOGY - 07/04/2025 8:24 AM EDT Reason for referral: 70 y.o.male with seizure-like activity Technical Summary: A 19 channel digital EEG was performed using the international 10-20 placement system, including eye leads and EKG leads. Duration: 27 minutes Findings: At the beginning of the study, the patient is noted to be a unresponsive to the technologist. He is having irregular coarse jerking of his left arm and his head is leaning to the right. The EEG background shows diffuse low amplitude 5 to 6 Hz theta present symmetrically over both hemispheres. Movement artifact is variably prominent in the left posterior electrodes (the patient's head is leaning to the left). Over the course of the study, no epileptiform activity or electrographic seizures are seen. The left arm tremoring continues variably throughout the entire study and has no associated EEG change. Photic stimulation does not change the background. Video: Available Technical quality: Good SUMMARY: EEG background is mild generalized slowing without focal features seen Near constant left arm tremoring has no EEG correlate and appears nonepileptic No epileptiform activity or electrographic seizures are seen Kris Boston DO NEUROLOGY ORDERABLES Final Resul t NEUROLOGY * (ABNORMAL) Potassium (07/04/2025 6:15 AM EDT) Pathologist [facility] Potassium 5.9(H) 3.5 - 5.2 mmol/L 07/04/2025 7:23 AM EDT [facility] Blood Venipuncture / Unknown 07/04/2025 6:15 AM EDT 07/04/2025 6:57 AM EDT Melanie Kamran PAREKH LAB BLOOD ORDERABLES Final Re sult Performing Organization Address City/[facility]/ZIP Co de Phone Number [facility]
[address] [place] [address], * ECG 12 Lead Electrolyte Imbalance (07/04/2025 5:38 AM EDT) QT Interval 410 ms ECG QTC Interval 435 ms ECG 07/04/2025 5:38 AM EDT 07/04/2025 2:59 PM EDT Narrative ECG - 07/04/2025 2:59 PM EDT Test Reason : Electrolyte Imbalance Blood Pressure : */* mmHG Vent. Rate : 68 BPM Atrial Rate : * BPM P-R Int : * ms QRS Dur : 98 ms QT Int : 410 ms P-R-T Axes : * 53 65 degrees QTcB Int : 435 ms sinus rhythm with baseline artifact Abnormal ECG When compared with ECG of 27-Jun-2025 15:32, Previous ECG has undetermined rhythm, needs review Criteria for Inferior infarct are no longer present Nonspecific T wave abnormality has replaced inverted T waves in Inferior leads Confirmed by Benitez Eller ([id number]) on 07/04/2025 2:59:44 PM Referred By: Confirmed By: Benitez Eller Procedure Note Benitez Eller MD - 07/04/2025 Test Reason : Electrolyte Imbalance Blood Pressure : */* mmHG Vent. Rate : 68 BPM Atrial Rate : * BPM P-R Int : * ms QRS Dur : 98 ms QT Int : 410 ms P-R-T Axes : * 53 65 degrees QTcB Int : 435 ms sinus rhythm with baseline artifact Abnormal ECG When compared with ECG of 27-Jun-2025 15:32, Previous ECG has undetermined rhythm, needs review Criteria for Inferior infarct are no longer present Nonspecific T wave abnormality has replaced inverted T waves in Inferior leads Confirmed by Benitez Eller ([id number]) on 07/04/2025 2:59:44 PM Referred By: Confirmed By: Benitez Eller Melanie Andrew APRN ECG ORDERABLES Final Result ECG * Vancomycin, Random (07/04/2025 3:47 AM EDT) Vancomycin Random 28.30 5.00 - 40.00 mcg/mL 07/04/2025 7:48 AM EDT [facility] Blood Venipuncture / Unknown 07/04/2025 3:47 AM EDT 07/04/2025 4:07 AM EDT Narrative [facility] - 07/04/2025 7:48 AM EDT Therapeutic Ranges for Vancomycin Vancomycin Random 5.0-40.0 mcg/mL Vancomycin Trough 5.0-20.0 mcg/mL Vancomycin Peak 20.0-40.0 mcg/mL Osmany Mccann [facility] LAB BLOOD ORDERABLES Final Result [facility]
[address] [place] [address], * (ABNORMAL) CBC Auto Differential (07/04/2025 3:47 AM EDT) WBC 8.21 3.40 - 10.80 10*3/mm3 07/04/2025 4:15 AM [facility] RBC 4.03(L) 4.14 - 5.80 10*6/mm3 07/04/2025 4:15 AM [facility] Hemoglobin 9.3(L) 13.0 - 17.7 g/dL 07/04/2025 4:15 AM [facility] Hematocrit 31.1(L) 37.5 - 51.0 % 07/04/2025 4:15 AM [facility] MCV 77.2(L) 79.0 - 97.0 fL 07/04/2025 4:15 AM [facility] MCH 23.1(L) 26.6 - 33.0 pg 07/04/2025 4:15 AM [facility] MCHC 29.9(L) 31.5 - 35.7 g/dL 07/04/2025 4:15 AM [facility] RDW 17.5(H) 12.3 - 15.4 % 07/04/2025 4:15 AM [facility] RDW-SD 48.1 37.0 - 54.0 fl 07/04/2025 4:15 AM [facility] MPV 9.3 6.0 - 12.0 fL 07/04/2025 4:15 AM [facility] Platelets 264 140 - 450 10*3/mm3 07/04/2025 4:15 AM [facility] Neutrophil % 71.4 42.7 - 76.0 % 07/04/2025 4:15 AM [facility] Lymphocyte % 18.6(L) 19.6 - 45.3 % 07/04/2025 4:15 AM [facility] Monocyte % 8.5 5.0 - 12.0 % 07/04/2025 4:15 AM [facility] Eosinophil % 0.5 0.3 - 6.2 % [facility] Basophil % 0.4 0.0 - 1.5 % 07/04/2025 4:15 AM EDT [facility] Immature Grans % 0.6(H) 0.0 - 0.5 % 07/04/2025 4:15 AM EDT [facility] Neutrophils, Absolute 5.86 1.70 - 7.00 10*3/mm3 07/04/2025 4:15 AM EDT [facility] Lymphocytes, Absolute 1.53 0.70 - 3.10 10*3/mm3 07/04/2025 4:15 AM EDT [facility] Monocytes, Absolute 0.70 0.10 - 0.90 10*3/mm3 07/04/2025 4:15 AM EDT [facility] Eosinophils, Absolute 0.04 0.00 - 0.40 10*3/mm3 07/04/2025 4:15 AM EDT [facility] Basophils, Absolute 0.03 0.00 - 0.20 10*3/mm3 07/04/2025 4:15 AM EDT [facility] Immature Grans, Absolute 0.05 0.00 - 0.05 10*3/mm3 07/04/2025 4:15 AM EDT [facility] nRBC 0.0 0.0 - 0.2 /100 WBC 07/04/2025 4:15 AM EDT [facility] Blood Venipuncture / Unknown 07/04/2025 3:47 AM EDT 07/04/2025 4:10 AM EDT us Francisca Franco MD LAB BLOOD ORDERABLES Final Resul t [facility]
[address] [place] [address], * (ABNORMAL) Basic Metabolic Panel (07/04/2025 3:47 AM EDT) [facility] Glucose 126(H) 65 - 99 mg/dL 07/04/2025 4:43 AM EDT [facility] BUN 14.1 8.0 - 23.0 mg/dL 07/04/2025 4:43 AM EDT [facility] Creatinine 0.78 0.76 - 1.27 mg/dL 07/04/2025 4:43 AM T [facility] Sodium 135(L) 136 - 145 mmol/L 07/04/2025 4:43 AM EDT [facility] Potassium 6.1(HH) 3.5 - 5.2 mmol/L 07/04/2025 4:43 AM EDT [facility] Chloride 106 98 - 107 mmol/L 07/04/2025 4:43 AM EDT [facility] CO2 21.3(L) 22.0 - 29.0 mmol/L 07/04/2025 4:43 AM T [facility] Calcium 8.3(L) 8.6 - 10.5 mg/dL 07/04/2025 4:43 AM [facility] BUN/Creatinine Ratio 18.1 7.0 - 25.0 07/04/2025 4:43 AM [facility] Anion Gap 7.7 5.0 - 15.0 mmol/L 07/04/2025 4:43 AM [facility] eGFR 95.3 >60.0 mL/min/1.7 3 07/04/2025 4:43 AM [facility] Blood Venipuncture / Unknown 07/04/2025 3:47 AM EDT 07/04/2025 4:07 AM EDT [facility] - 07/04/2025 4:43 AM EDT GFR Categories in Chronic Kidney [...] not include race as a factor us Francisca Franco MD LAB BLOOD ORDERABLES Final Resul t [facility]
[address] [place] [address], * (ABNORMAL) POC Glucose Once (07/03/2025 9:02 PM EDT) Glucose 143(H) 70 - 130 mg/dL 07/03/2025 9:04 PM EDT [facility] Comment:Serial Number: [id number]: [id number] Blood 07/03/2025 9:02 PM EDT 07/03/2025 9:04 PM EDT Kris Boston DO POINT OF CARE TEST ORDERABLES Fi nal Result Performing Organization Address City/[facility]/ZIP Co de Phone Number [facility]
[address] [place] [address], * CT Head Without Contrast (07/03/2025 9:00 PM EDT) Anatomical Region Laterality Modality Head N/A Computed Tomogra phy 07/03/2025 9:10 PM EDT Impressions 07/03/2025 9:11 PM EDT Age-related changes of the brain as above, otherwise without evidence of acute intracranial abnormality. Electronically Signed: Ravi Swartz MD 07/03/2025 9:11 PM EDT Workstation ID: [id number] Narrative 07/03/2025 9:[address] HEAD WO CONTRAST Date of Exam: 07/03/2025 8:35 PM EDT Indication: altered mental status. Comparison: None available. Technique: Axial CT images were obtained of the head without contrast administration. Automated exposure control and iterative construction methods were used. FINDINGS: Gutierrez-white differentiation is maintained and there is no evidence of intracranial hemorrhage, mass or mass effect. Age-related changes of the brain are present including volume loss and typical periventricular sequela of chronic small vessel ischemia. There is otherwise no evidence of intracranial hemorrhage, mass or mass effect. The ventricles are normal in size and configuration accounting for surrounding volume loss. The orbits are normal and the paranasal sinuses are grossly clear. Procedure Note Tyree Swartz MD - 07/03/2025 CT HEAD WO CONTRAST Date of Exam: 07/03/2025 8:35 PM EDT Indication: altered mental status. Comparison: None available. Technique: Axial CT images were obtained of the head without contrastadministration. Automated exposure control and iterative constructionmethods were used. FINDINGS: Gutierrez-white differentiation is maintained and there is noevidence of intracranial hemorrhage, mass or mass effect. Age-relatedchanges of the brain are present including volume loss and typicalperiventricular sequela of chronic small vessel ischemia. There is otherwise no evidence of intracranial hemorrhage, massor mass effect. The ventricles are normal in size and configurationaccounting for surrounding volume loss. The orbits are normal and theparanasal sinuses are grossly clear. IMPRESSION: Age-related changes of the brain as above, otherwise without evidence ofacute intracranial abnormality. Electronically Signed: Ravi Swartz MD 07/03/2025 9:11 PM EDT Workstation ID: [id number] Francisca Franco MD IMG CT ORDERABLES Final Result * (ABNORMAL) POC Glucose Once (07/03/2025 8:13 PM EDT) [facility] Glucose 142(H) 70 - 130 mg/dL 07/03/2025 8:15 PM EDT [facility] Comment:Serial Number: [id number]: [id number] Blood 07/03/2025 8:13 PM EDT 07/03/2025 8:15 PM EDT Kris Boston DO POINT OF CARE TEST ORDERABLES Fi nal Result [facility]
[address] [place] [address], * (ABNORMAL) Blood Gas, Arterial With Co-Ox (07/03/2025 7:00 PM EDT) Site Right Radial 07/03/2025 7:00 PM EDT [facility] THERAPY Jaspreet's Test Positive 07/03/2025 7:00 PM EDT [facility] THER[facility] pH, Arterial 7.362 7.350 - 7.450 pH units 07/03/2025 7:00 PM EDT [facility] pCO2, Arterial 41.7 35.0 - 45.0 mm Hg 07/03/2025 7:00 PM EDT [facility] pO2, Arterial 172.0(H) 83.0 - 108.0 mm Hg 07/03/2025 7:00 PM EDT [facility] HCO3, Arterial 23.6 20.0 - 26.0 mmol/L 07/03/2025 7:00 PM EDT [facility] THERAP[facility] Base Excess, Arterial -1.7(L) 0.0 - 2.0 mmol/L 07/03/2025 7:00 PM EDT [facility] Hemoglobin, Blood Gas 9.9(L) 13.5 - 17.5 g/dL 07/03/2025 7:00 PM EDT [facility] Comment:84 Value below refer ence range Hematocrit, Blood Gas 30.3(L) 38.0 - 51.0 % 07/03/2025 7:00 PM EDT [facility] Oxyhemoglobin 98.5 94 - 99 % 07/03/2025 7:00 PM EDT [facility] Methemoglobin 0.40 0.00 - 1.50 % 07/03/2025 7:00 PM EDT [facility] Carboxyhemoglobin 1.1 0 - 2 % 025 7:00 PM EDT [facility] CO2 Content 24.9 22 - 33 mmol/L 07/03/2025 7:00 PM EDT [facility] Temperature 37.0 07/03/2025 7:00 PM EDT [facility] Barometric Pressure for Blood Gas 07/03/2025 7:00 PM EDT [facility] Comment:N/A Modality Aerosol Mask 07/03/2025 7:00 PM EDT [facility] FIO2 60 % 07/03/2025 7:00 PM EDT [facility] Rate 0 Breaths/ minute 07/03/2025 7:00 PM EDT [facility] PIP 0 cmH2O 07/03/2025 7:00 PM EDT [facility] Comment:Meter: [id number] Manager Rn: [id number] IPAP 0 07/03/2025 7:00 PM EDT [facility] EPAP 0 07/03/2025 7:00 PM EDT [facility] pH, Temp Corrected 7.362 pH Units 2024 7:00 PM EDT [facility] pCO2, Temperature Corrected 41.7 35 - 48 mm Hg 07/03/2025 7:00 PM EDT [facility] pO2, Temperature Corrected 172(H) 83 - 108 mm Hg 07/03/2025 7:00 PM EDT [facility] Arterial Blood 07/03/2025 7: 00 PM EDT 07/03/2025 7:00 PM EDT us Kris Boston DO LAB BLOOD ORDERABLES Final Resul t Performing Organization Address City/[facility] de Phone Number [facility] TH[facility]
[address] [place] [address], * POC Glucose Once (07/03/2025 5:21 PM EDT) Glucose 98 70 - 130 mg/dL 07/03/2025 5:25 PM EDT [facility] Comment:Serial Number: [id number]: [id number] Blood 07/03/2025 5:21 PM EDT 07/03/2025 5:25 PM EDT us Kris Boston DO POINT OF CARE TEST ORDERABLES Fi nal Result Performing Organization Address City/[facility] Co de Phone Number [facility]
[address] [place] [address], * XR Sequ[place]ah OR Procedure (07/03/2025 3:44 PM EDT) us Vaughn S Iltis DO IMG DIAGNOSTIC IMAGING ORDERABLE S Final Result * (ABNORMAL) POC Glucose Finger Once (07/03/2025 11:30 AM EDT) Glucose 109 70 - 130 mg/dL [facility] Blood Finger structure / Unknown 07/03/2025 11:30 AM EDT Vishnu Smiley MD POINT OF CARE TEST ORDERABLES Final Result Performing Organization Address City/[facility]/ZIP Co de Phone Number [facility]
[address] [place] [address], * POC Glucose Once (07/03/2025 11:28 AM EDT) Glucose 109 70 - 130 mg/dL 07/27/2025 7:45 AM EST [facility] Comment:Serial Number: [id number]: [id number] Blood 07/03/2025 11:2 8 AM EDT 07/27/2025 7:45 AM EST Mart Ridley MD POINT OF CARE TEST ORDERABLES Final Result [facility]
[address] [place] [address], [place] [phone] * POC Glucose Once (07/03/2025 7:43 AM EDT) Glucose 78 70 - 130 mg/dL 07/03/2025 7:48 AM EDT [facility] Comment:Serial Number: [id number]: [id number] Blood 07/03/2025 7:43 AM EDT 07/03/2025 7:48 AM EDT Krisbrendon Boston POINT OF CARE TEST ORDERABLES Fi nal Result Performing Organization Address City/[facility] Co de Phone Number [facility]
[address] [place] [address], * Telemetry Scan (07/03/2025 4:55 AM EDT) [facility] Onbase ECG ORDERABLES Final Result * (ABNORMAL) POC Glucose Once (07/02/2025 9:23 PM EDT) Glucose 214(H) 70 - 130 mg/dL 07/02/2025 9:25 PM EDT [facility] Comment:Serial Number: [id number]: [id number] Blood 07/02/2025 9:23 PM EDT 07/02/2025 9:25 PM EDT Krisbrendon Boston POINT OF CARE TEST ORDERABLES Fi nal Result Performing Organization Address [facility] Co de Phone Number [facility]
[address] [place] [address], * (ABNORMAL) POC Glucose Once (07/02/2025 4:44 PM EDT) Glucose 155(H) 70 - 130 mg/dL 07/02/2025 4:46 PM EDT [facility] Comment:Serial Number: [id number]: [id number] Blood 07/02/2025 4:44 PM EDT 07/02/2025 4:46 PM EDT Krisbrendon Boston POINT OF CARE TEST ORDERABLES Fi nal Result Performing Organization Address City/[facility]/ZIP Co de Phone Number [facility]
[address] [place] [address], * (ABNORMAL) POC Glucose Finger 4x Daily Before Meals & at Bedtime (07/02/2025 11:22 AM EDT) Glucose 177(H) 70 - 130 mg/dL 07/02/2025 11:24 AM EDT [facility] Comment:Serial Number: [id number]: [id number] Blood Finger structure / Unknown 07/02/2025 11:22 AM EDT 07/02/2025 11:24 AM EDT us Vaughn S Iltis DO POINT OF CARE TEST ORDERABLES Fi nal Result Performing Organization Address [facility] de Phone Number [facility]
[address] [place] [address], * (ABNORMAL) POC Glucose Finger 4x Daily Before Meals & at Bedtime (07/02/2025 7:39 AM EDT) Glucose 136(H) 70 - 130 mg/dL 07/02/2025 7:41 AM EDT [facility] Comment:Serial Number: [id number]: [id number] Blood Finger structure / Unknown 07/02/2025 7:39 AM EDT 07/02/2025 7:41 AM EDT us Vaughn S Iltis DO POINT OF CARE TEST ORDERABLES Fi nal Result Performing Organization Address [facility] de Phone Number [facility]
[address] [place] [address], * (ABNORMAL) Basic Metabolic Panel (07/02/2025 3:59 AM EDT) Glucose 124(H) 65 - 99 mg/dL 07/02/2025 5:01 AM EDT [facility] BUN 16.9 8.0 - 23.0 mg/dL 07/02/2025 5:01 AM [facility] Creatinine 0.93 0.76 - 1.27 mg/dL 07/02/2025 5:01 AM [facility] Sodium 136 136 - 145 mmol/L 07/02/2025 5:01 AM [facility] Potassium 5.1 3.5 - 5.2 mmol/L 07/02/2025 5:01 AM [facility] Chloride 104 98 - 107 mmol/L 07/02/2025 5:01 AM [facility] [facility] CO2 21.2(L) 22.0 - 29.0 mmol/L 07/02/2025 5:01 AM [facility] Calcium 8.6 8.6 - 10.5 mg/dL 07/02/2025 5:01 AM [facility] BUN/Creatinine Ratio 18.2 7.0 - 25.0 07/02/2025 5:01 AM [facility] Anion Gap 10.8 5.0 - 15.0 mmol/L 07/02/2025 5:01 AM [facility] eGFR 87.8 >60.0 mL/min/1.7 3 07/02/2025 5:01 AM [facility] Blood Venipuncture / Unknown 07/02/2025 3:59 AM EDT 07/02/2025 4:28 AM T [facility] LABORATORY - 07/02/2025 5:01 AM EDT GFR Categories in Chronic Kidney [...] not include race as a factor us Duglas Andres MD LAB BLOOD ORDERABLES Final Result [facility]
[address] [id number], * (ABNORMAL) CBC (No Diff) (07/02/2025 3:59 AM EDT) WBC 7.10 3.40 - 10.80 10*3/mm3 07/02/2025 4:28 AM EDT [facility] RBC 4.15 4.14 - 5.80 10*6/mm3 07/02/2025 4:28 AM EDT [facility] Hemoglobin 9.8(L) 13.0 - 17.7 g/dL 07/02/2025 4:28 AM EDT [facility] Hematocrit 32.8(L) 37.5 - 51.0 % 07/02/2025 4:28 AM EDT [facility] MCV 79.0 79.0 - 97.0 fL 07/02/2025 4:28 AM EDT [facility] MCH 23.6(L) 26.6 - 33.0 pg 07/02/2025 4:28 AM EDT [facility] MCHC 29.9(L) 31.5 - 35.7 g/dL 07/02/2025 4:28 AM EDT [facility] RDW 17.4(H) 12.3 - 15.4 % 07/02/2025 4:28 AM EDT [facility] RDW-SD 49.6 37.0 - 54.0 fl 07/02/2025 4:28 AM EDT [facility] MPV 9.3 6.0 - 12.0 fL 07/02/2025 4:28 AM EDT [facility] Platelets 296 140 - 450 10*3/mm3 07/02/2025 4:28 AM EDT [facility] Blood Venipuncture / Unknown 07/02/2025 3:59 AM EDT 07/02/2025 4:22 AM EDT Kris Boston LAB BLOOD ORDERABLES Final Resul t Performing Organization Address City/[facility]/ZIP Co de Phone Number [facility]
[address] [place] [address], * Telemetry Scan (07/01/2025 9:00 PM EDT) [facility] Onbase ECG ORDERABLES Final Result * (ABNORMAL) POC Glucose Once (07/01/2025 8:52 PM EDT) Glucose 191(H) 70 - 130 mg/dL 07/01/2025 8:54 PM EDT [facility] Comment:Serial Number: [id number]: [id number] Blood 07/01/2025 8:52 PM EDT 07/01/2025 8:54 PM EDT Kris Boston POINT OF CARE TEST ORDERABLES Fi nal Result Performing Organization Address City/[facility] Co de Phone Number [facility]
[address] [place] [address], * Telemetry Scan (07/01/2025 8:01 PM EDT) [facility] Onbase ECG ORDERABLES Final Result * POC Glucose Once (07/01/2025 4:23 PM EDT) Glucose 105 70 - 130 mg/dL 07/01/2025 4:25 PM EDT [facility] Comment:Serial Number: [id number]: [id number] Blood 07/01/2025 4:23 PM EDT 07/01/2025 4:25 PM EDT us Kris Boston DO POINT OF CARE TEST ORDERABLES Fi nal Result Performing Organization Address City/[facility] Co de Phone Number [facility]
[address] [place] [address], * (ABNORMAL) POC Glucose Finger 4x Daily Before Meals & at Bedtime (07/01/2025 11:37 AM EDT) Glucose 232(H) 70 - 130 mg/dL 07/01/2025 11:41 AM EDT [facility] Comment:Serial Number: [id number]: [id number] Blood Finger structure / Unknown 07/01/2025 11:37 AM EDT 07/01/2025 11:41 AM EDT us Vaughn Hollingsworth DO POINT OF CARE TEST ORDERABLES Fi nal Result Performing Organization Address [facility] de Phone Number [facility]
[address] [place] [address], * POC Glucose Finger 4x Daily Before Meals & at Bedtime (07/01/2025 7:31 AM EDT) Glucose 72 70 - 130 mg/dL 07/01/2025 7:33 AM EDT [facility] Comment:Serial Number: [id number]: [id number] Blood Finger structure / Unknown 07/01/2025 7:31 AM EDT 07/01/2025 7:33 AM EDT us Vaughn Hollingsworth DO POINT OF CARE TEST ORDERABLES Fi nal Result Performing Organization Address [facility] de Phone Number [facility]
[address] [place] [address], [place] [phone] * (ABNORMAL) Basic Metabolic Panel (07/01/2025 3:29 AM EDT) Glucose 70 65 - 99 mg/dL 07/01/2025 5:27 AM [facility] BUN 13.7 8.0 - 23.0 mg/dL 07/01/2025 5:27 AM [facility] Creatinine 0.93 0.76 - 1.27 mg/dL 07/01/2025 5:27 AM [facility] Sodium 135(L) 136 - 145 mmol/L 07/01/2025 5:27 AM T [facility] Potassium 4.7 3.5 - 5.2 mmol/L 07/01/2025 5:27 AM EDT [facility] Chloride 104 98 - 107 mmol/L 07/01/2025 5:27 AM [facility] CO2 21.3(L) 22.0 - 29.0 mmol/L 07/01/2025 5:27 AM [facility] Calcium 8.7 8.6 - 10.5 mg/dL 07/01/2025 5:27 AM [facility] BUN/Creatinine Ratio 14.7 7.0 - 25.0 07/01/2025 5:27 AM [facility] Anion Gap 9.7 5.0 - 15.0 mmol/L 07/01/2025 5:27 AM [facility] eGFR 87.8 >60.0 mL/min/1.7 3 07/01/2025 5:27 AM [facility] Blood Venipuncture / Unknown 07/01/2025 3:29 AM EDT 07/01/2025 4:57 AM EDT [facility] LABORATORY - 07/01/2025 5:27 AM EDT GFR Categories in Chronic Kidney [...] does not include race as a factor Duglas Andres MD LAB BLOOD ORDERABLES Final Result Performing Organization Address [facility] Co de Phone Number [facility]
[address] [place] [address], * POC Glucose Once (06/30/2025 7:31 PM EDT) Glucose 118 70 - 130 mg/dL 06/30/2025 7:54 PM EDT [facility] Comment:Serial Number: [id number]: [id number] Blood 06/30/2025 7:31 PM EDT 06/30/2025 7:54 PM EDT Kris Boston POINT OF CARE TEST ORDERABLES Fi nal Result Performing Organization Address [facility] Co de Phone Number [facility]
[address] [place] [address], * POC Glucose Once (06/30/2025 4:29 PM EDT) Glucose 105 70 - 130 mg/dL 06/30/2025 4:32 PM EDT [facility] Comment:Serial Number: [id number]: [id number] Blood 06/30/2025 4:29 PM EDT 06/30/2025 4:32 PM EDT Kris Boston POINT OF CARE TEST ORDERABLES Fi nal Result Performing Organization Address [facility] Co de Phone Number [facility]
[address] [place] [address], * POC Glucose Finger 4x Daily Before Meals & at Bedtime (06/30/2025 11:52 AM EDT) Glucose 96 70 - 130 mg/dL 06/30/2025 11:54 AM EDT [facility] Comment:Serial Number: [id number]: [id number] Blood Finger structure / Unknown 06/30/2025 11:52 AM EDT 06/30/2025 11:54 AM EDT us Vaughn S Herbtis DO POINT OF CARE TEST ORDERABLES Fi nal Result Performing Organization Address [facility] Co de Phone Number [facility]
[address] [place] [address], * (ABNORMAL) POC Glucose Finger 4x Daily Before Meals & at Bedtime (06/30/2025 7:42 AM EDT) Glucose 133(H) 70 - 130 mg/dL 06/30/2025 7:44 AM EDT [facility] Comment:Serial Number: [id number]: [id number] Blood Finger structure / Unknown 06/30/2025 7:42 AM EDT 06/30/2025 7:44 AM EDT us Vaughn S Herbtis DO POINT OF CARE TEST ORDERABLES Fi nal Result Performing Organization Address [facility] de Phone Number [facility]
[address] [place] [address], * (ABNORMAL) CBC Auto Differential (06/30/2025 4:29 AM EDT) WBC 5.48 3.40 - 10.80 10*3/mm3 06/30/2025 6:15 AM EDT [facility] RBC 3.95(L) 4.14 - 5.80 10*6/mm3 06/30/2025 6:15 AM EDT [facility] Hemoglobin 9.2(L) 13.0 - 17.7 g/dL 06/30/2025 6:15 AM EDT [facility] Hematocrit 31.6(L) 37.5 - 51.0 % 06/30/2025 6:15 AM [facility] MCV 80.0 79.0 - 97.0 fL 06/30/2025 6:15 AM [facility] MCH 23.3(L) 26.6 - 33.0 pg 06/30/2025 6:15 AM [facility] MCHC 29.1(L) 31.5 - 35.7 g/dL 06/30/2025 6:15 AM [facility] RDW 17.3(H) 12.3 - 15.4 % 06/30/2025 6:15 AM [facility] RDW-SD 50.6 37.0 - 54.0 fl 06/30/2025 6:15 AM [facility] MPV 9.4 6.0 - 12.0 fL 06/30/2025 6:15 AM [facility] Platelets 259 140 - 450 10*3/mm3 06/30/2025 6:15 AM [facility] Neutrophil % 55.6 42.7 - 76.0 % 06/30/2025 6:15 AM [facility] Lymphocyte % 24.1 19.6 - 45.3 % 06/30/2025 6:15 AM [facility] Monocyte % 11.7 5.0 - 12.0 % 06/30/2025 6:15 AM [facility] Eosinophil % 7.3(H) 0.3 - 6.2 % 06/30/2025 6:15 AM [facility] Basophil % 0.9 0.0 - 1.5 % [facility] Grans % 0.4 0.0 - 0.5 % 06/30/2025 6:15 AM [facility] Neutrophils, Absolute 3.05 1.70 - 7.00 10*3/mm3 06/30/2025 6:15 AM [facility] Lymphocytes, Absolute 1.32 0.70 - 3.10 10*3/mm3 06/30/2025 6:15 AM EDT [facility] Monocytes, Absolute 0.64 0.10 - 0.90 10*3/mm3 06/30/2025 6:15 AM EDT [facility] Eosinophils, Absolute 0.40 0.00 - 0.40 10*3/mm3 06/30/2025 6:15 AM EDT [facility] Basophils, Absolute 0.05 0.00 - 0.20 10*3/mm3 06/30/2025 6:15 AM EDT [facility] Immature Grans, Absolute 0.02 0.00 - 0.05 10*3/mm3 06/30/2025 6:15 AM EDT [facility] nRBC 0.0 0.0 - 0.2 /100 WBC 06/30/2025 6:15 AM EDT [facility] Blood Venipuncture / Unknown 06/30/2025 4:29 AM EDT 06/30/2025 5:09 AM EDT Milena Jo APRN LAB BLOOD ORDERABLES Final Result [facility]
[address] [place] [address], * Vancomycin, Random (06/30/2025 4:29 AM EDT) Vancomycin Random 22.80 5.00 - 40.00 mcg/mL 06/30/2025 6:36 AM EDT [facility] Blood Venipuncture / Unknown 06/30/2025 4:29 AM EDT 06/30/2025 5:24 AM EDT Narrative [facility] - 06/30/2025 6:36 AM EDT Therapeutic Ranges for Vancomycin Vancomycin Random 5.0-40.0 mcg/mL Vancomycin Trough 5.0-20.0 mcg/mL Vancomycin Peak 20.0-40.0 mcg/mL Osmany Mccann [facility] LAB BLOOD ORDERABLES Final Result [facility]
[address] [place] [address], * (ABNORMAL) Basic Metabolic Panel (06/30/2025 4:29 AM EDT) Glucose 164(H) 65 - 99 mg/dL 06/30/2025 6:36 AM EDT [facility] BUN 12.3 8.0 - 23.0 mg/dL 06/30/2025 6:36 AM EDT [facility] Creatinine 0.89 0.76 - 1.27 mg/dL 06/30/2025 6:36 AM EDT [facility] Sodium 138 136 - 145 mmol/L 06/30/2025 6:36 AM EDT [facility] Potassium 4.7 3.5 - 5.2 mmol/L 06/30/2025 6:36 AM EDT [facility] Chloride 107 98 - 107 mmol/L 06/30/2025 6:36 AM EDT [facility] CO2 20.8(L) 22.0 - 29.0 mmol/L 06/30/2025 6:36 AM EDT [facility] Calcium 8.4(L) 8.6 - 10.5 mg/dL 06/30/2025 6:36 AM EDT [facility] BUN/Creatinine Ratio 13.8 7.0 - 25.0 06/30/2025 6:36 AM EDT [facility] Anion Gap 10.2 5.0 - 15.0 mmol/L 06/30/2025 6:36 AM T [facility] eGFR 91.6 >60.0 mL/min/1.7 3 06/30/2025 6:36 AM [facility] Blood Venipuncture / Unknown 06/30/2025 4:29 AM EDT 06/30/2025 5:24 AM EDT Narrative [facility] - 06/30/2025 6:36 AM EDT GFR Categories in Chronic Kidney [...] does not include race as a factor Osmany Mccann [facility] LAB BLOOD ORDERABLES Final Result Performing Organization Address City/[facility]/ZIP Co de Phone Number [facility]
[address] [place] [address], * (ABNORMAL) POC Glucose Once (06/29/2025 8:06 PM EDT) Glucose 136(H) 70 - 130 mg/dL 06/29/2025 8:08 PM EDT [facility] Comment:Serial Number: [id number]: [id number] Blood 06/29/2025 8:06 PM EDT 06/29/2025 8:08 PM EDT Hiro Santillan MD POINT OF CARE TEST ORDERABLES F inal Result Performing Organization Address City/[facility]/ZIP Co de Phone Number [facility]
[address] [place] [address], * (ABNORMAL) POC Glucose Once (06/29/2025 4:43 PM EDT) Glucose 135(H) 70 - 130 mg/dL 06/29/2025 4:44 PM EDT [facility] Comment:Serial Number: [id number]: [id number] Blood 06/29/2025 4:43 PM EDT 06/29/2025 4:44 PM EDT us Hiro Santillan MD POINT OF CARE TEST ORDERABLES F inal Result Performing Organization Address [facility] Co de Phone Number [facility]
[address] [place] [address], [place] [phone] * (ABNORMAL) POC Glucose Finger 4x Daily Before Meals & at Bedtime (06/29/2025 11:56 AM EDT) Glucose 136(H) 70 - 130 mg/dL 06/29/2025 11:58 AM EDT [facility] Comment:Serial Number: [id number]: [id number] Blood Finger structure / Unknown 06/29/2025 11:56 AM EDT 06/29/2025 11:58 AM EDT us Vaughn Hollingsworth DO POINT OF CARE TEST ORDERABLES Fi nal Result Performing Organization Address [facility] de Phone Number [facility]
[address] [place] [address], [place] [phone] * (ABNORMAL) POC Glucose Finger 4x Daily Before Meals & at Bedtime (06/29/2025 7:30 AM EDT) Glucose 157(H) 70 - 130 mg/dL 06/29/2025 7:32 AM EDT [facility] Comment:Serial Number: [id number]: [id number] Blood Finger structure / Unknown 06/29/2025 7:30 AM EDT 06/29/2025 7:32 AM EDT us Vaughn Hollingsworth DO POINT OF CARE TEST ORDERABLES Fi nal Result Performing Organization Address [facility] de Phone Number [facility]
[address] [place] [address], [place] [phone] * (ABNORMAL) Basic Metabolic Panel (06/29/2025 6:24 AM EDT) Glucose 175(H) 65 - 99 mg/dL 06/29/2025 7:27 AM EDT [facility] BUN 11.4 8.0 - 23.0 mg/dL 06/29/2025 7:27 AM T [facility] Creatinine 0.89 0.76 - 1.27 mg/dL 06/29/2025 7:27 AM EDT [facility] Sodium 138 136 - 145 mmol/L 06/29/2025 7:27 AM EDT [facility] Potassium 4.5 3.5 - 5.2 mmol/L 06/29/2025 7:27 AM EDT [facility] Chloride 106 98 - 107 mmol/L 06/29/2025 7:27 AM [facility] CO2 21.9(L) 22.0 - 29.0 mmol/L 06/29/2025 7:27 AM T [facility] Calcium 8.5(L) 8.6 - 10.5 mg/dL 06/29/2025 7:27 AM T [facility] BUN/Creatinine Ratio 12.8 7.0 - 25.0 06/29/2025 7:27 AM [facility] Anion Gap 10.1 5.0 - 15.0 mmol/L 06/29/2025 7:27 AM [facility] eGFR 91.6 >60.0 mL/min/1.7 3 06/29/2025 7:27 AM T [facility] Blood Venipuncture / Unknown 06/29/2025 6:24 AM EDT 06/29/2025 7:02 AM EDT [facility]ORATORY - 06/29/2025 7:27 AM EDT GFR Categories in Chronic Kidney [...] does not include race as a factor Osmany Mccann [facility] LAB BLOOD ORDERABLES Final Result [facility]
[address] [place] [address], * (ABNORMAL) CBC Auto Differential (06/29/2025 6:23 AM EDT) WBC 7.30 3.40 - 10.80 10*3/mm3 06/29/2025 7:10 AM EDT [facility] RBC 3.87(L) 4.14 - 5.80 10*6/mm3 06/29/2025 7:10 AM EDT [facility] Hemoglobin 9.0(L) 13.0 - 17.7 g/dL 06/29/2025 7:10 AM EDT [facility] Hematocrit 29.2(L) 37.5 - 51.0 % 06/29/2025 7:10 AM EDT [facility] MCV 75.5(L) 79.0 - 97.0 fL 06/29/2025 7:10 AM EDT [facility] MCH 23.3(L) 26.6 - 33.0 pg 06/29/2025 7:10 AM EDT [facility] MCHC 30.8(L) 31.5 - 35.7 g/dL 06/29/2025 7:10 AM EDT [facility] RDW 17.1(H) 12.3 - 15.4 % 06/29/2025 7:10 AM EDT [facility] RDW-SD 46.1 37.0 - 54.0 fl 06/29/2025 7:10 AM EDT [facility] MPV 9.7 6.0 - 12.0 fL 06/29/2025 7:10 AM EDT [facility] Platelets 289 140 - 450 10*3/mm3 06/29/2025 7:10 AM [facility] Neutrophil % 64.5 42.7 - 76.0 % 06/29/2025 7:10 AM [facility] Lymphocyte % 19.7 19.6 - 45.3 % 06/29/2025 7:10 AM [facility] Monocyte % 8.8 5.0 - 12.0 % 06/29/2025 7:10 AM [facility] Eosinophil % 5.8 0.3 - 6.2 % 06/29/2025 7:10 AM [facility] Basophil % 0.8 0.0 - 1.5 % 06/29/2025 7:10 AM [facility] Immature Grans % 0.4 0.0 - 0.5 % 06/29/2025 7:10 AM [facility] Neutrophils, Absolute 4.71 1.70 - 7.00 10*3/mm3 06/29/2025 7:10 AM [facility] Lymphocytes, Absolute 1.44 0.70 - 3.10 10*3/mm3 06/29/2025 7:10 AM [facility] Monocytes, Absolute 0.64 0.10 - 0.90 10*3/mm3 06/29/2025 7:10 AM [facility] Eosinophils, Absolute 0.42(H) 0.00 - 0.40 10*3/mm3 06/29/2025 7:10 AM [facility] Basophils, Absolute 0.06 0.00 - 0.20 10*3/mm3 06/29/2025 7:10 AM [facility] Immature Grans, Absolute 0.03 0.00 - 0.05 10*3/mm3 06/29/2025 7:10 AM [facility] nRBC 0.0 0.0 - 0.2 /100 WBC 06/29/2025 7:10 AM [facility] Blood Venipuncture / Unknown 06/29/2025 6:23 AM EDT 06/29/2025 7:02 AM EDT Milena Jo APRN LAB BLOOD ORDERABLES Final Result Performing Organization Address [facility] Co de Phone Number [facility]
[address] [place] [address], * (ABNORMAL) POC Glucose Once (06/28/2025 8:17 PM EDT) Glucose 149(H) 70 - 130 mg/dL 06/28/2025 8:22 PM EDT [facility] Comment:Serial Number: [id number]: [id number] Blood 06/28/2025 8:17 PM EDT 06/28/2025 8:22 PM EDT Hiro Santillan MD POINT OF CARE TEST ORDERABLES F inal Result Performing Organization Address [facility] Co de Phone Number [facility]
[address] [place] [address], * (ABNORMAL) POC Glucose Finger 4x Daily Before Meals & at Bedtime (06/28/2025 5:01 PM EDT) Glucose 166(H) 70 - 130 mg/dL 06/28/2025 5:04 PM EDT [facility] Comment:Serial Number: [id number]: [id number] Blood Finger structure / Unknown 06/28/2025 5:01 PM EDT 06/28/2025 5:04 PM EDT Vaughn Hollingsworth DO POINT OF CARE TEST ORDERABLES Fi nal Result Performing Organization Address [facility] Co de Phone Number [facility]
[address] [place] [address], * POC Glucose Finger 4x Daily Before Meals & at Bedtime (06/28/2025 11:44 AM EDT) Glucose 111 70 - 130 mg/dL 06/28/2025 11:47 AM EDT [facility] Comment:Serial Number: [id number]: [id number] Blood Finger structure / Unknown 06/28/2025 11:44 AM EDT 06/28/2025 11:47 AM EDT Vaughn S Iltis DO POINT OF CARE TEST ORDERABLES Fi nal Result Performing Organization Address City/[facility]/ZIP Co de Phone Number [facility]
[address] [place] [address], * (ABNORMAL) POC Glucose Finger 4x Daily Before Meals & at Bedtime (06/28/2025 7:39 AM EDT) Glucose 60(L) 70 - 130 mg/dL 06/28/2025 7:40 AM EDT [facility] Comment:Serial Number: [id number]: [id number] Blood Finger structure / Unknown 06/28/2025 7:39 AM EDT 06/28/2025 7:40 AM EDT us Vaughn S Iltis DO POINT OF CARE TEST ORDERABLES Fi nal Result Performing Organization Address City/[facility]/ZIP Co de Phone Number [facility]
[address] [place] [address], * (ABNORMAL) Basic Metabolic Panel (06/28/2025 4:00 AM EDT) Glucose 125(H) 65 - 99 mg/dL 06/28/2025 5:43 AM EDT [facility] BUN 11.0 8.0 - 23.0 mg/dL 06/28/2025 5:43 AM EDT [facility] Creatinine 0.79 0.76 - 1.27 mg/dL 06/28/2025 5:43 AM EDT [facility] Sodium 140 136 - 145 mmol/L 06/28/2025 5:43 AM EDT [facility] Potassium 4.6 3.5 - 5.2 mmol/L 06/28/2025 5:43 AM EDT [facility] Chloride 111(H) 98 - 107 mmol/L 06/28/2025 5:43 AM EDT [facility] CO2 21.7(L) 22.0 - 29.0 mmol/L 06/28/2025 5:43 AM EDT [facility] Calcium 8.2(L) 8.6 - 10.5 mg/dL 06/28/2025 5:43 AM EDT [facility] BUN/Creatinine Ratio 13.9 7.0 - 25.0 06/28/2025 5:43 AM EDT [facility] Anion Gap 7.3 5.0 - 15.0 mmol/L 06/28/2025 5:43 AM EDT [facility] eGFR 95.0 >60.0 mL/min/1.7 3 06/28/2025 5:43 AM T [facility] Blood Venipuncture / Unknown 06/28/2025 4:00 AM EDT 06/28/2025 5:13 AM EDT [facility] - 06/28/2025 5:43 AM EDT GFR Categories in Chronic Kidney [...] not include race as a factor us Osmany Mccann [facility] BLOOD ORDERABLES Final Result [facility]
[address] [place] [address], * Vancomycin, Random (06/28/2025 4:00 AM EDT) Vancomycin Random 23.30 5.00 - 40.00 mcg/mL 06/28/2025 5:43 AM EDT [facility] Blood Venipuncture / Unknown 06/28/2025 4:00 AM EDT 06/28/2025 5:13 AM EDT Narrative [facility] - 06/28/2025 5:43 AM EDT Therapeutic Ranges for Vancomycin Vancomycin Random 5.0-40.0 mcg/mL Vancomycin Trough 5.0-20.0 mcg/mL Vancomycin Peak 20.0-40.0 mcg/mL Osmany Mccann [facility] BLOOD ORDERABLES Final Result Performing Organization Address City/[facility]/ZIP Co de Phone Number [facility]
[address] [place] [address], * (ABNORMAL) POC Glucose Once (06/27/2025 8:24 PM EDT) Glucose 177(H) 70 - 130 mg/dL 06/27/2025 8:26 PM EDT [facility] Comment:Serial Number: [id number]: [id number] Blood 06/27/2025 8:24 PM EDT 06/27/2025 8:26 PM EDT Hiro Santillan MD POINT OF CARE TEST ORDERABLES F inal Result [facility]
[address] [place] [address], * POC Glucose Once (06/27/2025 4:18 PM EDT) Glucose 104 70 - 130 mg/dL 06/27/2025 4:21 PM EDT [facility] Comment:Serial Number: [id number]: [id number] Blood 06/27/2025 4:18 PM EDT 06/27/2025 4:21 PM EDT Hiro Santillan MD POINT OF CARE TEST ORDERABLES F inal Result [facility]
[address] [place] [address], * ECG 12 Lead QT Measurement (06/27/2025 3:32 PM EDT) QT Interval 412 ms BH ECG QTC Interval 451 ms ECG 06/27/2025 3:32 PM EDT 07/02/2025 6:13 AM EDT Narrative ECG - 07/02/2025 6:13 AM EDT Test Reason : QT Measurement Blood Pressure : */* mmHG Vent. 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) Abnormal ECG When compared with ECG of 27-Jun-2025 09:39, (Unconfirmed) Current undetermined rhythm precludes rhythm comparison, needs review Nonspecific T wave abnormality no longer evident in Lateral leads Confirmed by AMANDA DICKEY MD ([id number]) on 07/02/2025 6:13:19 AM Referred By: Confirmed By: AMANDA DICKEY MD Chinyere Hensley DIABETES NURSE ECG ORDERABLES Final Resul t Performing Organization Address City/[facility]/ZIP Co de Phone Number ECG * POC Glucose Once (06/27/2025 11:10 AM EDT) Glucose 130 70 - 130 mg/dL 06/27/2025 11:12 AM EDT [facility] Comment:Serial Number: [id number]: [id number] Blood 06/27/2025 11:1 0 AM EDT 06/27/2025 11:12 AM EDT Hiro Santillan MD POINT OF CARE TEST ORDERABLES F inal Result Performing Organization Address [facility] Co de Phone Number [facility] [place] [address], * POC Glucose Finger 4x Daily Before Meals & at Bedtime (06/27/2025 7:19 AM EDT) Glucose 102 70 - 130 mg/dL 06/27/2025 7:21 AM EDT [facility] Comment:Serial Number: [id number]: [id number] Blood Finger structure / Unknown 06/27/2025 7:19 AM EDT 06/27/2025 7:21 AM EDT Vauhgn Hollingsworth DO POINT OF CARE TEST ORDERABLES Fi nal Result Performing Organization Address [facility] Co de Phone Number [facility]
[address] [place] [address], * (ABNORMAL) CBC Auto Differential (06/27/2025 4:00 AM EDT) [facility] WBC 9.98 3.40 - 10.80 10*3/mm3 06/27/2025 5:07 AM EDT [facility] RBC 3.93(L) 4.14 - 5.80 10*6/mm3 06/27/2025 5:07 AM EDT [facility] Hemoglobin 9.4(L) 13.0 - 17.7 g/dL 06/27/2025 5:07 AM EDT [facility] Hematocrit 30.4(L) 37.5 - 51.0 % 06/27/2025 5:07 AM EDT [facility] MCV 77.4(L) 79.0 - 97.0 fL 06/27/2025 5:07 AM EDT [facility] MCH 23.9(L) 26.6 - 33.0 pg 06/27/2025 5:07 AM EDT [facility] MCHC 30.9(L) 31.5 - 35.7 g/dL 06/27/2025 5:07 AM EDT [facility] RDW 16.9(H) 12.3 - 15.4 % 06/27/2025 5:07 AM EDT [facility] RDW-SD 47.6 37.0 - 54.0 fl 06/27/2025 5:07 AM EDT [facility] MPV 9.6 6.0 - 12.0 fL 06/27/2025 5:07 AM EDT [facility] Platelets 274 140 - 450 10*3/mm3 06/27/2025 5:07 AM EDT [facility] Neutrophil % 68.1 42.7 - 76.0 % 06/27/2025 5:07 AM EDT [facility] Lymphocyte % 17.9(L) 19.6 - 45.3 % 06/27/2025 5:07 AM EDT [facility] Monocyte % 8.3 5.0 - 12.0 % 06/27/2025 5:07 AM EDT [facility] Eosinophil % 4.7 0.3 - 6.2 % 06/27/2025 5:07 AM EDT [facility] Basophil % 0.6 0.0 - 1.5 % 06/27/2025 5:07 AM EDT [facility] Immature Grans % 0.4 0.0 - 0.5 % 06/27/2025 5:07 AM EDT [facility] Neutrophils, Absolute 6.79 1.70 - 7.00 10*3/mm3 06/27/2025 5:07 AM EDT [facility] Lymphocytes, Absolute 1.79 0.70 - 3.10 10*3/mm3 06/27/2025 5:07 AM EDT [facility] Monocytes, Absolute 0.83 0.10 - 0.90 10*3/mm3 06/27/2025 5:07 AM EDT [facility] Eosinophils, Absolute 0.47(H) 0.00 - 0.40 10*3/mm3 06/27/2025 5:07 AM EDT [facility] Basophils, Absolute 0.06 0.00 - 0.20 10*3/mm3 06/27/2025 5:07 AM EDT [facility] Immature Grans, Absolute 0.04 0.00 - 0.05 10*3/mm3 06/27/2025 5:07 AM EDT [facility] nRBC 0.0 0.0 - 0.2 /100 WBC 06/27/2025 5:07 AM EDT [facility] Blood Venipuncture / Unknown 06/27/2025 4:00 AM EDT 06/27/2025 5:03 AM EDT us Hiro Santillan MD LAB BLOOD ORDERABLES Final Resu lt [facility]
[address] [place] [address], * Magnesium (06/27/2025 4:00 AM EDT) Magnesium 2.2 1.6 - 2.4 mg/dL 06/27/2025 5:25 AM EDT [facility] Blood Venipuncture / Unknown 06/27/2025 4:00 AM EDT 06/27/2025 5:03 AM EDT Hiro Santillan MD LAB BLOOD ORDERABLES Final Resu lt [facility]
[address] [place] [address], * (ABNORMAL) Basic Metabolic Panel (06/27/2025 4:00 AM EDT) Glucose 91 65 - 99 mg/dL 06/27/2025 5:25 AM EDT [facility] BUN 15.3 8.0 - 23.0 mg/dL 06/27/2025 5:25 AM EDT [facility] Creatinine 0.92 0.76 - 1.27 mg/dL 06/27/2025 5:25 AM EDT [facility] Sodium 139 136 - 145 mmol/L 06/27/2025 5:25 AM EDT [facility] Potassium 4.3 3.5 - 5.2 mmol/L 06/27/2025 5:25 AM EDT [facility] Chloride 109(H) 98 - 107 mmol/L 06/27/2025 5:25 AM EDT [facility] CO2 20.3(L) 22.0 - 29.0 mmol/L 06/27/2025 5:25 AM EDT [facility] Calcium 8.1(L) 8.6 - 10.5 mg/dL 06/27/2025 5:25 AM EDT [facility] BUN/Creatinine Ratio 16.6 7.0 - 25.0 06/27/2025 5:25 AM EDT [facility] Anion Gap 9.7 5.0 - 15.0 mmol/L 06/27/2025 5:25 AM EDT [facility] eGFR 88.9 >60.0 mL/min/1.7 3 06/27/2025 5:25 AM EDT [facility] Blood Venipuncture / Unknown 06/27/2025 4:00 AM EDT 06/27/2025 5:03 AM EDT Narrative [facility] - 06/27/2025 5:25 AM EDT GFR Categories in Chronic Kidney [...] not include race as a factor us Hiro Santillan MD LAB BLOOD ORDERABLES Final Resu lt Performing Organization Address City/[facility]/ZIP Co de Phone Number [facility]
[address] [place] [address], [place] [phone] * (ABNORMAL) POC Glucose Once (06/26/2025 9:07 PM EDT) [facility] Signature Glucose 176(H) 70 - 130 mg/dL 06/26/2025 9:10 PM EDT [facility] Comment:Serial Number: [id number]: [id number] Blood 06/26/2025 9:07 PM EDT 06/26/2025 9:10 PM EDT us Hiro Santillan MD POINT OF CARE TEST ORDERABLES F inal Result Performing Organization Address [facility] Co de Phone Number [facility]
[address] [place] [address], [place] [phone] * MRI Foot Left Without Contrast (06/26/2025 8:15 PM EDT) Anatomical Region Laterality Modality Lower Extremities, Foot Magnetic Resonance 06/26/2025 9:54 PM EDT Impressions 06/26/2025 10:08 PM EDT 1.Status post transmetatarsal amputation at the level of the metatarsal diaphyses. There is some edema in the distal first and second metatarsal diaphyses at the resection margins, and as such, osteomyelitis is not excluded. 2.Diffuse soft tissue edema and skin thickening about the remaining foot, particularly along the dorsal side and distally at the stump compatible with cellulitis. No definite abscess is seen allowing for the lack of contrast. 3.Nondisplaced intra-articular fracture of the distal tibia with associated marrow edema. This may be acute to subacute. 4.Distal Achilles tendinopathy. Electronically Signed: Brent Lubin MD 06/26/2025 10:08 PM EDT Workstation ID: [id number] Narrative 06/26/2025 10:08 PM EDT MRI FOOT LEFT WO CONTRAST Date of Exam: 06/26/2025 8:12 PM EDT Indication: Assess for osteomyelitis. Status post amputation. Wound in stump. Comparison: Left foot radiographs 06/25/2025, left foot MRI 01/15/2024 Technique: Routine multiplanar/multisequence sequence images of the left foot were obtained without contrast administration. Findings: There is a nondisplaced intra-articular fracture across the distal tibia with associated marrow edema. This may be acute to subacute. Posterior and plantar calcaneal enthesophytes are present. There is distal Achilles tendinopathy with increased signal in the substance of the tendon. As seen radiographically, the patient is status post transmetatarsal amputation at the level of the metatarsal diaphyses. Within the distal first and second metatarsal diaphyses at the resection margins, there is some edema noted on the T1 and T2 weighted images, and as such, osteomyelitis is not excluded. No other changes of potential osteomyelitis are identified. There is diffuse soft tissue edema and skin thickening about the remaining foot, particularly along the dorsal side and distally at the stump compatible with cellulitis. Edema extends throughout the subcutaneous tissues on the dorsum of the foot and in the stump. No definite abscess is seen allowing for the lack of contrast. Procedure Note Brent Lubin MD - 06/26/2025 MRI FOOT LEFT WO CONTRAST Date of Exam: 06/26/2025 8:12 PM EDT Indication: Assess for osteomyelitis. Status post amputation. Wound instump. Comparison: Left foot radiographs 06/25/2025, left foot MRI 01/15/2024 Technique: Routine multiplanar/multisequence sequence images of the leftfoot were obtained without contrast administration. Findings: There is a nondisplaced intra-articular fracture across the distal tibiawith associated marrow edema. This may be acute to subacute. Posterior andplantar calcaneal enthesophytes are present. There is distal Achillestendinopathy with increased signal in the substance of the tendon. As seen radiographically, the patient isstatus post transmetatarsal amputation at the level of the metatarsaldiaphyses. Within the distal first and second metatarsal diaphyses at theresection margins, there is some edema noted on the T1 and T2 weighted images, and as such, osteomyelitisis not excluded. No other changes of potential osteomyelitis areidentified. There is diffuse soft tissue edema and skin thickening aboutthe remaining foot, particularly along the dorsal side and distally at the stump compatible with cellulitis. Edemaextends throughout the subcutaneous tissues on the dorsum of the foot andin the stump. No definite abscess is seen allowing for the lack ofcontrast. IMPRESSION: 1.Status post transmetatarsal amputation at the level of the metatarsaldiaphyses. There is some edema in the distal first and second metatarsaldiaphyses at the resection margins, and as such, osteomyelitis is notexcluded. 2.Diffuse soft tissue edema and skin thickening about the remaining foot,particularly along the dorsal side and distally at the stump compatiblewith cellulitis. No definite abscess is seen allowing for the lack ofcontrast. 3.Nondisplaced intra-articular fracture of the distal tibia withassociated marrow edema. This may be acute to subacute. 4.Distal Achilles tendinopathy. Electronically Signed: Brent Lubin MD 06/26/2025 10:08 PM EDT Workstation ID: [id number] us Amanda Bermudez MD IM MRI ORDERABLES Final Resu lt * (ABNORMAL) POC Glucose Once (06/26/2025 4:42 PM EDT) Glucose 193(H) 70 - 130 mg/dL 06/26/2025 4:45 PM EDT [facility] Comment:Serial Number: [id number] Blood 06/26/2025 4:42 PM EDT 06/26/2025 4:45 PM EDT Hiro Santillan MD POINT OF CARE TEST ORDERABLES F inal Result Performing Organization Address [facility]/ZIP Co de Phone Number [facility]
[address] [place] [address], * (ABNORMAL) POC Glucose Once (06/26/2025 11:45 AM EDT) Glucose 156(H) 70 - 130 mg/dL 06/26/2025 11:48 AM EDT [facility] Comment:Serial Number: [id number]: [id number] Blood 06/26/2025 11:4 5 AM EDT 06/26/2025 11:48 AM EDT Hiro Santillan MD POINT OF CARE TEST ORDERABLES F inal Result Performing Organization Address [facility] Co de Phone Number [facility]
[address] [place] [address], * DUPLEX LOWER EXTREMITY ART/GRAFTS LEFT CAR - COR/EVANGELISTA/MAD (06/26/2025 9:36 AM EDT) SFA Prox PSV-Left 78.5 cm/s SFA Mid PSV-Left 285.6 cm/s SFA Distal PSV-Left 169.9 cm/s Popiteal A Prox PSV-Left 97.2 cm/s Popiteal A Distal PSV-Left 119.6 cm/s Ant Tibial A Distal PSV-Left 94.0 cm/s PIPE AND TEST SUPERVISOR Distal PSV-Left 86.4 cm/s Left groin SEWING SUPERVISOR sys 112.2 cm/sec SEWING SUPERVISOR Prox PSV-Left 112.20 cm/s DFA Prox PSV-Left 48.47 cm/s Anatomical Region Laterality Modality Ultrasound Narrative 06/26/2025 3:47 PM EDT Abnormal waveforms suggest inflow (aortoiliac) disease. At least moderate (60% (stenosis in the left SFA. The left CHIP appears to be occluded filling via collaterals retrograde. Left Lower Arterial Findings The left external iliac artery is not well visualized. The left proximal common femoral artery exhibits monophasic, low resistive arterial flow and has plaque noted. The left proximal deep femoral artery exhibits monophasic, low resistive arterial flow and has plaque noted. The left proximal superficial femoral artery exhibits monophasic, low resistive arterial flow and has plaque noted. The left mid superficial femoral artery exhibits monophasic, low resistive arterial flow and has plaque noted. The left distal superficial femoral artery exhibits monophasic, low resistive arterial flow and has plaque noted. The left proximal popliteal artery exhibits monophasic, low resistive arterial flow and has plaque noted. The left distal popliteal artery exhibits monophasic, low resistive arterial flow and has plaque noted. The left distal anterior tibial artery exhibits monophasic, low resistive arterial flow and has plaque noted. The left proximal posterior tibial artery flow is absent. The left mid posterior tibial artery flow is absent. The left distal posterior tibial artery exhibits monophasic, low resistive arterial flow. The left mid peroneal artery flow is absent. Additional findings: The EIA is not visualized. The SEWING SUPERVISOR is monophasic suggestive of inflow disease. The DFA is monophasic. The SFA is patent with diffuse plaque noted throughout, multiple lesions are suspected throughout the SFA due to elevated velocities and plaque formation. The popliteal artery is monophasic. The PIPE AND TEST SUPERVISOR is not visualized in the proximal and mid calf. The distal PIPE AND TEST SUPERVISOR is heavily calcified with monophasic flow. The CHIP is not visualized in the proximal and mid calf, The distal CHIP is retrograde with monophasic flow. The Rich Artery is not visualized. Additional Study Details Study performed at bedside. The study is technically difficult for diagnosis. EBENEZER CNO. S/P Rt AKA us Amanda Bermudez MD CV VASCULAR ORDERABLES Final Result * Duplex Venous Lower Extremity - Left CAR (06/26/2025 9:34 AM EDT) Right Common Femoral Spont Y Right Common Femoral Competent Y Right Common Femoral Phasic Y Right Common Femoral Compress C Right Common Femoral Augment Y Left Common Femoral Spont Y Left Common Femoral Competent Y Left Common Femoral Phasic Y Left Common Femoral Compress C Left Common Femoral Augment Y Left Saphenofemoral Junction Compress C Left Profunda Femoral Compress C Left Proximal Femoral Compress C Left Mid Femoral Spont Y Left Mid Femoral Competent Y Left Mid Femoral Phasic Y Left Mid Femoral Compress C Left Mid Femoral Augment Y Left Distal Femoral Compress C Left Popliteal Spont Y Left Popliteal Competent Y Left Popliteal Phasic Y Left Popliteal Compress C Left Popliteal Augment Y Left Posterior Tibial Compress C Left Peroneal Compress C Left Gastronemius Compress C Left Greater Saph AK Compress C Left Greater Saph BK Compress C Left Lesser Saph Compress C Anatomical Region Laterality Modality Ultrasound Narrative 06/26/2025 3:47 PM EDT Normal left lower extremity venous duplex scan. Study Impression Left Common Femoral: No deep vein thrombosis noted. Left Saphenofemoral Junction: No superficial thrombophlebitis noted. Left Proximal Femoral: No deep vein thrombosis noted. Left Mid Femoral: No deep vein thrombosis noted. Left Distal Femoral: No deep vein thrombosis noted. Left Popliteal: No deep vein thrombosis noted. Left Posterior Tibial: No deep vein thrombosis noted. Left Peroneal: No deep vein thrombosis noted. Left Gastrocnemius: No deep vein thrombosis noted. Left Great Saphenous Above Knee: No superficial thrombophlebitis noted. Left Great Saphenous Below Knee: No superficial thrombophlebitis noted. Additional Study Details Study performed at bedside. The study is technically adequate for diagnosis. us Amanda Bermudez MD CV VASCULAR ORDERABLES Final Result * Type & Screen (06/26/2025 7:41 AM EDT) ABO Type B 06/26/2025 10:07 AM EDT [facility] RH type Positive 06/26/2025 10:07 AM EDT [facility] Antibody Screen Negative [facility]/26[facility]2025 [facility] Expiration Date 06/29/2025 11:59:59 PM 06/26/2025 10:07 AM EDT [facility] Blood Venipuncture / Unknown 06/26/2025 7:41 AM EDT 06/26/2025 9:19 AM EDT Amanda Bermudez MD BLOOD BANK TEST ORDERABLES Ed ited Result - Final Performing Organization Address [facility] Co de Phone Number [facility]
[address] [place] [address], * Ferritin (06/26/2025 7:41 AM EDT) Ferritin 108.00 30.00 - 400.00 ng/mL 06/26/2025 9:47 AM EDT [facility] Blood Venipuncture / Unknown 06/26/2025 7:41 AM EDT 06/26/2025 9:12 AM EDT [facility] - 06/26/2025 9:47 AM EDT Results may be falsely decreased if patient taking Biotin. Amanda Bermudez MD LAB BLOOD ORDERABLES Final Re sult Performing Organization Address [facility] de Phone Number [facility]
[address] [place] [address], * Vitamin B12 (06/26/2025 7:41 AM EDT) Vitamin B-12 922 211 - 946 pg/mL 06/26/2025 12:57 PM EDT [facility] Blood Venipuncture / Unknown 06/26/2025 7:41 AM EDT 06/26/2025 9:12 AM EDT Narrative [facility] - 06/26/2025 12:57 PM EDT Results may be falsely increased if patient taking Biotin. Amanda Bermudez MD LAB BLOOD ORDERABLES Final Re sult Performing Organization Address City/[facility]/ZIP Co de Phone Number [facility]
[address] [place] [address], [place] [phone] * (ABNORMAL) Iron Profile w/o Ferritin (06/26/2025 7:41 AM EDT) Iron 14(L) 59 - 158 mcg/dL 06/26/2025 9:47 AM EDT [facility] Iron Saturation (TSAT) 5(L) 20 - 50 % 06/26/2025 9:47 AM EDT [facility] Transferrin 172(L) 200 - 360 mg/dL 06/26/2025 9:47 AM EDT [facility] TIBC 256(L) 298 - 536 mcg/dL 06/26/2025 9:47 AM EDT [facility] Blood Venipuncture / Unknown 06/26/2025 7:41 AM EDT 06/26/2025 9:12 AM EDT Amanda Bermudez MD LAB BLOOD ORDERABLES Final Re sult Performing Organization Address [facility] Co de Phone Number [facility]
[address] [place] [address], [place] [phone] * TSH Rfx On Abnormal To Free T4 (06/26/2025 7:41 AM EDT) TSH 0.340 0.270 - 4.200 uIU/mL 06/26/2025 9:47 AM EDT [facility] Blood Venipuncture / Unknown 06/26/2025 7:41 AM EDT 06/26/2025 9:12 AM EDT Amanda Bermudez MD LAB BLOOD ORDERABLES Final Re sult [facility]
[address] [place] [address], * CK (06/26/2025 7:41 AM EDT) Pathologist [facility] Creatine Kinase 59 20 - 200 U/L 06/26/2025 9:47 AM EDT [facility] Blood Venipuncture / Unknown 06/26/2025 7:41 AM EDT 06/26/2025 9:12 AM EDT us Amanda Bermudez MD LAB BLOOD ORDERABLES Final Re sult [facility]
[address] [place] [address], * (ABNORMAL) Lipid Panel (06/26/2025 7:41 AM EDT) Pathologist [facility] Total Cholesterol 154 0 - 200 mg/dL 06/26/2025 9:47 AM EDT [facility] Triglycerides 131 0 - 150 mg/dL 06/26/2025 9:47 AM EDT [facility] HDL Cholesterol 27(L) 40 - 60 mg/dL 06/26/2025 9:47 AM EDT [facility] LDL Cholesterol 103(H) 0 - 100 mg/dL 06/26/2025 9:47 AM EDT [facility] VLDL Cholesterol 24 5 - 40 mg/dL 06/26/2025 9:47 AM EDT [facility] LDL/HDL Ratio 3.73 06/26/2025 9:47 AM EDT [facility] Blood Venipuncture / Unknown 06/26/2025 7:41 AM EDT 06/26/2025 9:12 AM EDT [facility] - 06/26/2025 9:47 AM EDT Cholesterol Reference Ranges (U.S. Department of Health [...] High 160-189 mg/dL Very High >189 mg/dL LDL is calculated using the NIH LDL-C calculation. us Amanda Bermudez MD LAB BLOOD ORDERABLES Final Re sult Performing Organization Address City/[facility]/ZIP Co de Phone Number [facility]
[address] [place] [address], * Phosphorus (06/26/2025 7:41 AM EDT) Phosphorus 2.9 2.5 - 4.5 mg/dL 06/26/2025 9:47 AM EDT [facility] Blood Venipuncture / Unknown 06/26/2025 7:41 AM EDT 06/26/2025 9:12 AM EDT us Amanda Bermudez MD LAB BLOOD ORDERABLES Final Re sult Performing Organization Address City/[facility]/ZIP Co de Phone Number [facility]
[address] [place] [address], [place] [phone] * Magnesium (06/26/2025 7:41 AM EDT) Magnesium 1.8 1.6 - 2.4 mg/dL 06/26/2025 9:47 AM EDT [facility] Blood Venipuncture / Unknown 06/26/2025 7:41 AM EDT 06/26/2025 9:12 AM EDT Amanda Bermudez MD LAB BLOOD ORDERABLES Final Re sult Performing Organization Address [facility] Co de Phone Number [facility]
[address] [place] [address], * (ABNORMAL) Hemoglobin A1c (06/26/2025 7:41 AM EDT) Hemoglobin A1C 7.82(H) 4.80 - 5.60 % 06/26/2025 9:46 AM EDT [facility] Blood Venipuncture / Unknown 06/26/2025 7:41 AM EDT 06/26/2025 9:12 AM EDT Narrative [facility] - 06/26/2025 9:46 AM EDT Hemoglobin A1C Ranges: Increased Risk for Diabetes 5.7% to 6.4% Diabetes >= 6.5% Diabetic Goal < 7.0% Amanda Bermudez MD LAB BLOOD ORDERABLES Final Re sult Performing Organization Address [facility] Co de Phone Number [facility]
[address] [place] [address], * (ABNORMAL) Protime-INR (06/26/2025 7:41 AM EDT) Protime 16.7(H) 12.2 - 15.3 Seconds 06/26/2025 9:31 AM EDT [facility] INR 1.27(H) 0.89 - 1.12 06/26/2025 9:31 AM EDT [facility] Blood Venipuncture / Unknown 06/26/2025 7:41 AM EDT 06/26/2025 9:12 AM EDT Amanda Bermudez MD LAB BLOOD ORDERABLES Final Re sult Performing Organization Address City/[facility] Co de Phone Number [facility]
[address] [place] [address], * Lactic Acid, Plasma (06/26/2025 7:41 AM EDT) Pathologist [facility] Lactate 1.2 0.5 - 2.0 mmol/L 06/26/2025 9:41 AM EDT [facility] Comment:Falsely depressed re sults may occur on samples drawn from patients receiving N-Acetylcysteine (NAC) or Metamizole. Blood Venipuncture / Unknown 06/26/2025 7:41 AM EDT 06/26/2025 9:12 AM EDT Amanda Bermudez MD LAB BLOOD ORDERABLES Final Re sult [facility]
[address] [place] [address], * (ABNORMAL) Comprehensive Metabolic Panel (06/26/2025 7:41 AM EDT) Pathologist [facility] Glucose 134(H) 65 - 99 mg/dL 06/26/2025 9:47 AM EDT [facility] BUN 19.1 8.0 - 23.0 mg/dL 06/26/2025 9:47 AM EDT [facility] Creatinine 0.88 0.76 - 1.27 mg/dL 06/26/2025 9:47 AM EDT [facility] Sodium 142 136 - 145 mmol/L 06/26/2025 9:47 AM EDT [facility] Potassium 3.7 3.5 - 5.2 mmol/L 06/26/2025 9:47 AM EDT [facility] Chloride 112(H) 98 - 107 mmol/L 06/26/2025 9:47 AM EDT [facility] CO2 21.4(L) 22.0 - 29.0 mmol/L 06/26/2025 9:47 AM EDT [facility] Calcium 8.3(L) 8.6 - 10.5 mg/dL 06/26/2025 9:47 AM [facility] Total Protein 7.1 6.0 - 8.5 g/dL 06/26/2025 9:47 AM [facility] Albumin 3.0(L) 3.5 - 5.2 g/dL 06/26/2025 9:47 AM [facility] ALT (SGPT) 13 1 - 41 U/L 06/26/2025 9:47 AM T [facility] AST (SGOT) 15 1 - 40 U/L 06/26/2025 9:47 AM [facility] Alkaline Phosphatase 116 39 - 117 U/L 06/26/2025 9:47 AM [facility] Total Bilirubin 0.2 0.0 - 1.2 mg/dL 06/26/2025 9:47 AM [facility] Globulin 4.1 gm/dL 06/26/2025 9:47 AM [facility] Comment:Calculated Result A/G Ratio 0.7 g/dL 06/26/2025 9:47 AM [facility] BUN/Creatinine Ratio 21.7 7.0 - 25.0 06/26/2025 9:47 AM [facility] Anion Gap 8.6 5.0 - 15.0 mmol/L 06/26/2025 9:47 AM [facility] eGFR 91.9 >60.0 mL/min/1.7 3 06/26/2025 9:47 AM [facility] Blood Venipuncture / Unknown 06/26/2025 7:41 AM EDT 06/26/2025 9:12 AM [facility] - 06/26/2025 9:47 AM EDT GFR Categories in Chronic Kidney [...] not include race as a factor us Amanda Bermudez MD LAB BLOOD ORDERABLES Final Re sult [facility]
[address] [place] [address], * (ABNORMAL) CBC Auto Differential (06/26/2025 7:40 AM EDT) WBC 9.69 3.40 - 10.80 10*3/mm3 06/26/2025 9:17 AM EDT [facility] RBC 3.78(L) 4.14 - 5.80 10*6/mm3 06/26/2025 9:17 AM EDT [facility] Hemoglobin 8.8(L) 13.0 - 17.7 g/dL 06/26/2025 9:17 AM EDT [facility] Hematocrit 29.3(L) 37.5 - 51.0 % 06/26/2025 9:17 AM EDT [facility] MCV 77.5(L) 79.0 - 97.0 fL 06/26/2025 9:17 AM EDT [facility] MCH 23.3(L) 26.6 - 33.0 pg 06/26/2025 9:17 AM EDT [facility] MCHC 30.0(L) 31.5 - 35.7 g/dL 06/26/2025 9:17 AM EDT [facility] RDW 16.6(H) 12.3 - 15.4 % 06/26/2025 9:17 AM EDT [facility] RDW-SD 46.7 37.0 - 54.0 fl 06/26/2025 9:17 AM EDT [facility] MPV 9.8 6.0 - 12.0 fL 06/26/2025 9:17 AM EDT [facility] Platelets 271 140 - 450 10*3/mm3 06/26/2025 9:17 AM [facility] Neutrophil % 67.9 42.7 - 76.0 % 06/26/2025 9:17 AM [facility] Lymphocyte % 18.3(L) 19.6 - 45.3 % 06/26/2025 9:17 AM [facility] Monocyte % 8.3 5.0 - 12.0 % 06/26/2025 9:17 AM [facility] Eosinophil % 4.4 0.3 - 6.2 % 06/26/2025 9:17 AM [facility] Basophil % 0.7 0.0 - 1.5 % 06/26/2025 9:17 AM [facility] Immature Grans % 0.4 0.0 - 0.5 % 06/26/2025 9:17 AM [facility] Neutrophils, Absolute 6.58 1.70 - 7.00 10*3/mm3 06/26/2025 9:17 AM [facility] Lymphocytes, Absolute 1.77 0.70 - 3.10 10*3/mm3 06/26/2025 9:17 AM [facility] Monocytes, Absolute 0.80 0.10 - 0.90 10*3/mm3 06/26/2025 9:17 AM [facility] Eosinophils, Absolute 0.43(H) 0.00 - 0.40 10*3/mm3 06/26/2025 9:17 AM [facility] Basophils, Absolute 0.07 0.00 - 0.20 10*3/mm3 06/26/2025 9:17 AM [facility] Immature Grans, Absolute 0.04 0.00 - 0.05 10*3/mm3 06/26/2025 9:17 AM [facility] nRBC 0.0 0.0 - 0.2 /100 WBC 06/26/2025 9:17 AM [facility] Blood Venipuncture / Unknown 06/26/2025 7:40 AM EDT 06/26/2025 9:12 AM EDT Amanda Bermudez MD LAB BLOOD ORDERABLES Final Re sult [facility]
[address] [place] [address], * POC Glucose Once (06/26/2025 5:57 AM EDT) [facility] Signature Glucose 119 70 - 130 mg/dL 06/26/2025 6:00 AM EDT [facility] Comment:Serial Number: [id number]: [id number] Blood 06/26/2025 5:57 AM EDT 06/26/2025 6:00 AM EDT Steve Kinney MD POINT OF CARE TEST ORDERABLES Final Result Performing Organization Address City/[facility]/ZIP Co de Phone Number [facility]
[address] [place] [address], [place] [phone] * CT Angiogram Lower Extremity Left (06/26/2025 4:58 AM EDT) Anatomical Region Laterality Modality Pelvis, Hip, Thigh, Knee, Lower Leg, Ankle, Foot Left Computed Tomography 06/26/2025 5:00 AM EDT Impressions 06/26/2025 5:08 AM EDT Impression: 1.There is mild disease in the left lower extremity with moderate focal narrowing at the junction of the SFA and popliteal artery. There appears to be embolization of the left left peroneal artery. Patency of the anterior and posterior tibial arteries is difficult to assess due to significant venous contamination and heavy calcification. Definite runoff into the left foot is seen in the posterior tibial artery. 2.Status post right [id number]-jwg-vbuv amputation. There is occlusion of the proximal right PFA with reconstitution. 3.Severe diffuse atrophy in the left lower extremity musculature. 4.Moderate sized fat and sigmoid colon containing left inguinal hernia and small fat-containing right inguinal hernia. 5.Marked urinary bladder wall thickening. Correlate for cystitis. Electronically Signed: Hussain Lyles MD 06/26/2025 5:08 AM EDT Workstation ID: [id number] Narrative 06/26/2025 5:[address] ANGIOGRAM LOWER EXTREMITY LEFT Date of Exam: 06/26/2025 4:18 AM EDT Indication: Left leg limb ischemia. Comparison: Correlation with CT abdomen and pelvis 06/25/2025. Technique: CTA of the left lower extremity was performed before and after the uneventful intravenous administration of iodinated contrast. Reconstructed coronal and sagittal images were also obtained. In addition, a 3-D volume rendered image was created for interpretation. Automated exposure control and iterative reconstruction methods were used. Findings: CT angiography: There is moderate disease in the visualized aorta above the bifurcation. There is mild nonstenosing disease in the common iliac arteries. There is mild nonstenosing disease in the external iliac arteries and similar mild disease present in the internal iliac arteries. Right lower extremity: Patient is status post jcupl-bgb-xfzl amputation. There is mild disease in the SEWING SUPERVISOR and SFA. The PFA is occluded proximally with reconstitution. There is moderate segmental stenosing disease in the remainder of the SFA. Left lower extremity: Minimal SEWING SUPERVISOR disease. PFA is patent. There is mild SFA disease with moderate focal narrowing at the junction of the SFA and popliteal artery. The gpgjl-pev-akcj popliteal artery appears otherwise widely patent. There is mild below the knee popliteal artery disease. There appears to be embolization of the peroneal artery. Patency of the anterior and posterior tibial arteries is difficult to assess due to significant venous contamination and heavy calcification. Definite runoff into the left foot is seen in the posterior tibial artery. 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 Nonvascular findings: There is severe diffuse atrophy in the left lower extremity musculature particularly below the knee. The bones are markedly demineralized in the left foreleg. There is muscular atrophy in the right thigh. There is a moderate sized fat and sigmoid colon containing left inguinal hernia and a small fat-containing right inguinal hernia. There is marked urinary bladder wall thickening. IVC filter is partially seen and discussed on previous reports. The appendix is normal. There is no pelvic ascites. No acute osseous abnormality. There are moderate to severe lower lumbar degenerative changes. Procedure Note Hussain Lyles MD - 06/26/2025 CT ANGIOGRAM LOWER EXTREMITY LEFT Date of Exam: 06/26/2025 4:18 AM EDT Indication: Left leg limb ischemia. Comparison: Correlation with CT abdomen and pelvis 06/25/2025. Technique: CTA of the left lower extremity was performed before and afterthe uneventful intravenous administration of iodinated contrast.Reconstructed coronal and sagittal images were also obtained. In addition,a 3-D volume rendered image was created for interpretation. Automated exposure control and iterativereconstruction methods were used. Findings: CT angiography: There is moderate disease in the visualized aorta abovethe bifurcation. There is mild nonstenosing disease in the common iliacarteries. There is mild nonstenosing disease in the external iliacarteries and similar mild disease present in the internal iliac arteries. Right lower extremity: Patient is status post anbxj-inz-pzdj amputation.There is mild disease in the SEWING SUPERVISOR and SFA. The PFA is occluded proximallywith reconstitution. There is moderate segmental stenosing disease in theremainder of the SFA. Left lower extremity: Minimal SEWING SUPERVISOR disease. PFA is patent. There is mildSFA disease with moderate focal narrowing at the junction of the SFA andpopliteal artery. The mktzb-qgb-dyof popliteal artery appears otherwisewidely patent. There is mild below the knee popliteal artery disease. There appears to be embolization of theperoneal artery. Patency of the anterior and posterior tibial arteries isdifficult to assess due to significant venous contamination and heavycalcification. Definite runoff into the left foot is seen in the posterior tibial artery. Patient is statuspost transmetatarsal amputation at the left foot. Nonvascular findings: There is severe diffuse atrophy in the left lowerextremity musculature particularly below the knee. The bones are markedlydemineralized in the left foreleg. There is muscular atrophy in the rightthigh. There is a moderate sized fat and sigmoid colon containing left inguinal hernia and a smallfat-containing right inguinal hernia. There is marked urinary bladder wallthickening. IVC filter is partially seen and discussed on previousreports. The appendix is normal. There is no pelvic ascites. No acute osseous abnormality. There are moderate to severelower lumbar degenerative changes. IMPRESSION: Impression: 1.There is mild disease in the left lower extremity with moderate focalnarrowing at the junction of the SFA and popliteal artery. There appearsto be embolization of the left left peroneal artery. Patency of theanterior and posterior tibial arteries is difficult to assess due to significant venous contamination and heavycalcification. Definite runoff into the left foot is seen in the posteriortibial artery. 2.Status post right svcre-wpq-sblc amputation. There is occlusion of theproximal right PFA with reconstitution. 3.Severe diffuse atrophy in the left lower extremity musculature. 4.Moderate sized fat and sigmoid colon containing left inguinal hernia andsmall fat-containing right inguinal hernia. 5.Marked urinary bladder wall thickening. Correlate for cystitis. Electronically Signed: Hussain Lyles MD 06/26/2025 5:08 AM EDT Workstation ID: [id number] us Amanda Bermudez MD IMG CT ORDERABLES Final Resul t * XR Chest 1 View (06/26/2025 4:09 AM EDT) Anatomical Region Laterality Modality Body N/A Radiographic Martha ging 06/26/2025 4:12 AM EDT Impressions 06/26/2025 4:13 AM EDT Cardiomegaly with possible mild right basilar atelectasis. Electronically Signed: Brent Lubin MD 06/26/2025 4:13 AM EDT Workstation ID: [id number] Narrative 06/26/2025 4:13 AM EDT XR CHEST 1 VW Date of Exam: 06/26/2025 3:07 AM EDT Indication: cough. Comparison: 06/02/2025 Findings: Cardiomegaly is stable. Pulmonary vascularity is normal. There is atherosclerotic disease in the aorta. Mild right basilar atelectasis may be present. Lungs are otherwise clear. No pneumothorax. There is degenerative disease in the shoulders. Procedure Note Brent Lubin MD - 06/26/2025 XR CHEST 1 VW Date of Exam: 06/26/2025 3:07 AM EDT Indication: cough. Comparison: 06/02/2025 Findings: Cardiomegaly is stable. Pulmonary vascularity is normal. There isatherosclerotic disease in the aorta. Mild right basilar atelectasis maybe present. Lungs are otherwise clear. No pneumothorax. There isdegenerative disease in the shoulders. IMPRESSION: Cardiomegaly with possible mild right basilar atelectasis. Electronically Signed: Brent Lubin MD 06/26/2025 4:13 AM EDT Workstation ID: [id number] us Amanda Bermudez MD IMG DIAGNOSTIC IMAGING ORDERA BLES Final Result * ECG 12 Lead QT Measurement (06/26/2025 1:33 AM EDT) QT Interval 368 ms ECG QTC Interval 429 ms ECG 06/26/2025 1:33 AM EDT 07/02/2025 6:03 AM EDT Narrative ECG - 07/02/2025 6:03 AM EDT Test Reason : QT Measurement Blood Pressure : */* mmHG Vent. Rate : 82 BPM Atrial Rate : * BPM P-R Int : * ms QRS Dur : 92 ms QT Int : 368 ms P-R-T Axes : * 47 46 degrees QTcB Int : 429 ms Sinus rhythm with occasional premature ventricular complexes Possible Inferior infarct , age undetermined Abnormal ECG When compared with ECG of 02-Jun-2025 12:09, Junctional rhythm has replaced Sinus rhythm Nonspecific T wave abnormality now evident in Lateral leads Confirmed by AMANDA DICKEY MD ([id number]) on 07/02/2025 6:03:44 AM Referred By: Confirmed By: AMANDA DICKEY MD Procedure Note Amanda Dickey MD - 07/02/2025 Test Reason : QT Measurement Blood Pressure : */* mmHG Vent. Rate : 82 BPM Atrial Rate : * BPM P-R Int : * ms QRS Dur : 92 ms QT Int : 368 ms P-R-T Axes : * 47 46 degrees QTcB Int : 429 ms Sinus rhythm with occasional premature ventricular complexes Possible Inferior infarct , age undetermined Abnormal ECG When compared with ECG of 02-Jun-2025 12:09, Junctional rhythm has replaced Sinus rhythm Nonspecific T wave abnormality now evident in Lateral leads Confirmed by AMANDA DICKEY MD ([id number]) on 07/02/2025 6:03:44 AM Referred By: Confirmed By: AMANDA DICKEY MD Amanda Bermudez MD ECG ORDERABLES Final Result Performing Organization Address [facility] Co de Phone Number ECG * POC Glucose Once (06/26/2025 12:51 AM EDT) Glucose 83 70 - 130 mg/dL 06/26/2025 12:54 AM EDT [facility] Comment:Serial Number: [id number]: [id number] Blood 06/26/2025 12:5 1 AM EDT 06/26/2025 12:54 AM EDT Amanda Bermudez MD POINT OF CARE TEST ORDERABLES Final Result Performing Organization Address [facility] de Phone Number [facility]
[address] [place] [address], * Clostridioides difficile toxin Ag, Reflex - Stool, Per Rectum (06/26/2025 12:46 AM EDT) C.diff Toxin Ag Negative Negative DISK DIFFUSION 06/26/2025 8:36 AM EDT [facility] Stool Specimen from rectum / Unknown Collection / Unknown 06/26/2025 12:46 AM EDT 06/26/2025 1:08 AM EDT Narrative [facility] - 06/26/2025 8:36 AM EDT DNA from a toxigenic strain of C.difficile was detected, although the free toxin itself was not detected. These findings are consistent with C.difficile colonization and may not reflect actual C.difficile infection. Clinical correlation needed. Ally Pryor APRN MICROBIOLOGY - GENERAL ORDER SEB Final Result Performing Organization Address [facility] Co de Phone Number [facility]
[address] [place] [address], * (ABNORMAL) MRSA Screen, PCR (Inpatient) - Swab, Nares (06/26/2025 12:46 AM EDT) [facility] MRSA PCR Positive(A ) Negative CEPHEID GENEXPERT 06/26/2025 8:50 AM EDT [facility] Swab Structure of anterior naris / Unknown Collection / Unknown 06/26/2025 12:46 AM EDT 06/26/2025 5:37 AM EDT [facility] - 06/26/2025 8:50 AM EDT The negative predictive value of this diagnostic test is high and should only be used to consider de-escalating anti-MRSA therapy. A positive result may indicate colonization with MRSA and must be correlated clinically. Amanda Bermudez MD MICROBIOLOGY - GENERAL ORDERA BLES Final Result Performing Organization Address City/[facility]/ZIP Co de Phone Number [facility]
[address] [place] [address], * (ABNORMAL) Clostridioides difficile Toxin, PCR - Stool, Per Rectum (06/26/2025 12:46 AM EDT) [facility] Toxigenic C. difficile by PCR Detected( A) Not Detected CEPHEID GENEXPERT 06/26/2025 7:55 AM EDT [facility] Stool Specimen from rectum / Unknown Collection / Unknown 06/26/2025 12:46 AM EDT 06/26/2025 1:08 AM EDT [facility] - 06/26/2025 7:55 AM EDT DNA from a toxigenic strain of C.difficile has been detected. Ally Pryor APRN MICROBIOLOGY - GENERAL ORDER SEB Final Result Performing Organization Address City/[facility]/ZIP Co de Phone Number [facility]
[address] [place] [address], * (ABNORMAL) Gastrointestinal Panel, PCR - Stool, Per Rectum (06/26/2025 12:46 AM EDT) [facility] Campylobacter Not Detected Not Detected BIOFIRE TORCH 06/26/2025 8:50 AM EDT [facility] Plesiomonas shigelloides Not Detected Not Detected BIOFIRE [facility] 06/26/2025 8:50 AM EDT [facility] Salmonella Not Detected Not Detected [facility]IOFIRE TOR 06/26/2025 8:50 AM EDT [facility] Vibrio Not Detected Not Detected [facility]IO[facility]RE [facility] 06/26/2025 8:50 AM EDT [facility] Vibrio cholerae Not Detected Not Detected [facility]IOFIRE [facility] 06/26/2025 8:50 AM EDT [facility] Yersinia enterocolitica Not Detected Not Detected [facility]IOFIRE [facility] 06/26/2025 8:50 AM EDT [facility] Enteroaggregative E. coli (EAEC) Not Detected Not Detected BIOFIRE [facility] 06/26/2025 8:50 AM EDT [facility] Enteropathogenic E. coli (EPEC) Not Detected Not Detected BIOFIRE [facility] 06/26/2025 8:50 AM EDT [facility] Enterotoxigenic E. coli (ETEC) lt/st Not Detected Not Detected BIOFIRE [facility] 06/26/2025 8:50 AM EDT [facility] Shiga-like toxin-producing E. coli (STEC) stx1/stx2 Not Detected Not Detected BIOFIRE [facility] 06/26/2025 8:50 AM EDT [facility] Shigella/Enteroinv asive E. coli (EIEC) Not Detected Not Detected BIOFIRE [facility] 06/26/2025 8:50 AM EDT [facility] Cryptosporidium Not Detected Not Detected [facility]IOFIRE [facility] 06/26/2025 8:50 AM EDT [facility] Cyclospora cayetanensis Not Detected Not Detected [facility]IOFIRE [facility] 06/26/2025 8:50 AM EDT [facility] Entamoeba histolytica Not Detected Not Detected [facility]IO[facility]RE [facility] 06/26/2025 8:50 AM EDT [facility] Giardia lamblia Not Detected Not Detected [facility]IO[facility]RE [facility] 06/26/2025 8:50 AM EDT [facility] Adenovirus F40/41 Not Detected Not Detected [facility]IO[facility]RE T[facility] 06/26/2025 8:50 AM EDT [facility] Astrovirus Not Detected Not Detected [facility] 06/26/2025 8:50 AM EDT [facility] Norovirus GI/GII Detected(A) Not Detected [facility] 06/26/2025 8:50 AM EDT [facility] Comment:If a positive Norovi tramaine result is inconsistent with clinical presentation, the positive Norovirus result should be confirmed using another method. Rotavirus A Not Detected Not Detected BIOFIRE TOR 06/26/2025 8:50 AM EDT [facility] Sapovirus (I, II, IV or V) Not Detected Not Detected BIOFIRE [facility] 06/26/2025 8:50 AM EDT [facility] Stool Specimen from rectum / Unknown Collection / Unknown 06/26/2025 12:46 AM EDT 06/26/2025 1:08 AM EDT us Ally Jeffers V, DIABETES NURSE MICROBIOLOGY - GENERAL ORDER SEB Final Result [facility]
[address] [place] [address], * (ABNORMAL) Blood Culture ID, PCR - Blood, Hand, Right (06/25/2025 8:30 PM EDT) BCID, PCR Enterococcus faecium. Zee/B (vancomycin resistance gene) not detected. Identification by BCID2 PCR.(A) Negative by BCID PCR. Culture to Follow. BIOFIRE FILMARRAY 06/26/2025 9:02 PM EDT [facility] BOTTLE TYPE Anaerobic Bottle BIOFIRE TORCH 06/26/2025 9:02 PM EDT [facility] Blood Structure of right hand / Unknown Venipuncture / Unknown 06/25/2025 8:30 PM EDT 06/26/2025 3:22 AM EDT [facility] - 06/26/2025 9:02 PM EDT Infectious disease consultation is highly recommended to rule out distant foci of infection. Ally Pryor APRN MICROBIOLOGY - GENERAL ORDER SEB Final Result [facility]
[address] [place] [address], * (ABNORMAL) Blood Culture - Blood, Hand, Right (06/25/2025 8:30 PM EDT) Blood Culture Enterococcus faecium(AA) MURRAY 06/29/2025 7:13 AM EDT [facility] Comment: Infectious disease consultation is highly recommended. Isolated from Anaerobic Bottle 06/29/2025 7:13 AM EDT [facility] Gram Stain Anaerobic Bottle Gram positive cocci in chains(AA) 06/29/2025 7:13 AM EDT [facility] Blood Structure of right hand / Unknown Venipuncture / Unknown 06/25/2025 8:30 PM EDT 06/26/2025 3:22 AM EDT [facility] - 06/29/2025 7:13 AM EDT Less than seven (7) mL's of blood was collected. Insufficient quantity may yield false negative results. requested linezolid & daptomycin 06/28/25 Organism Antibiotic Method Susceptibility Enterococcus faecium Daptomycin 4.0 ug/ml: Susceptible dose dependent Enterococcus faecium Ampicillin MURRAY <=2 ug/ml: Susceptible Enterococcus faecium Gentamicin High Lev el Synergy MURRAY SYN-S ug/ml: Susceptible Enterococcus faecium Linezolid MURRAY 2 ug/ml: Susceptible Comment:Appended rep ort. These results have been appended to a previously final verified report. Enterococcus faecium Vancomycin MURRAY <=0.5 ug/ml: Susceptible Ally Pryor APRN MICROBIOLOGY - GENERAL ORDER SEB Edited Result - Final Performing Organization Address City/[facility]/ZIP Co de Phone Number [facility]
[address] [place] [address], [place] [phone] [facility]
[address] [place] [address], [place] [phone] * (ABNORMAL) Urine Culture - Urine, Indwelling Urethral Catheter (06/25/2025 8:01 PM EDT) Urine Culture >100,000 CFU/mL Proteus mirabilis(A ) MURRAY 06/30/2025 10:01 AM EDT [facility] Urine (Indwelling Urethral Catheter) Collection / Unknown 06/25/2025 8:01 PM EDT 06/25/2025 8:11 PM EDT [facility] - 06/30/2025 10:01 AM EDT Colonization of the urinary tract without infection is common. Treatment is discouraged unless the patient is symptomatic, , or undergoing an invasive urologic procedure. Organism Antibiotic Method Susceptibility Proteus mirabilis Amoxicillin + Clavulanate MURRAY 8 ug/ml: Susceptible Proteus mirabilis Ampicillin MURRAY >=32 ug/ml: Resistant Proteus mirabilis Ampicillin + Sulbactam MURRAY 16 ug/ml: Intermediate Proteus mirabilis Cefazolin (Urine) MURRAY >=32 ug/ml: Resistant Proteus mirabilis Cefepime MURRAY 16 ug/ml: Resistant Proteus mirabilis Ceftazidime MURRAY <=0.5 ug/ml: Susceptible Proteus mirabilis Ceftriaxone MURRAY 32 ug/ml: Resistant Proteus mirabilis Cefuroxime axetil MURRAY >=64 ug/ml: Resistant Proteus mirabilis Ciprofloxacin MURRAY >=4 ug/ml: Resistant Proteus mirabilis Gentamicin MURRAY <=1 ug/ml: Susceptible Proteus mirabilis Levofloxacin MURRAY >=8 ug/ml: Resistant Proteus mirabilis Nitrofurantoin MURRAY 128 ug/ml: Resistant Proteus mirabilis Piperacillin + Tazobactam MURRAY <=4 ug/ml: Susceptible Proteus mirabilis Trimethoprim + Sulfamethoxazole MURRAY >=320 ug/ml: Resistant us Ally Mccracken V, DIABETES NURSE MICROBIOLOGY - GENERAL ORDER SEB Final Result [facility]
[address] [place] [address], * (ABNORMAL) Urinalysis, Microscopic Only - Indwelling Urethral Catheter (06/25/2025 8:01 PM EDT) RBC, UA 6-10(A) None Seen, 0-2 /HPF 06/25/2025 8:29 PM EDT [facility] WBC, UA Too Numerous to Count(A) None Seen, 0-2 /HPF 06/25/2025 8:29 PM EDT [facility] Bacteria, UA 4+(A) None Seen /HPF 06/25/2025 8:29 PM EDT [facility] Squamous Epithelial Cells, UA 0-2 None Seen, 0-2 /HPF 06/25/2025 8:29 PM EDT [facility] Yeast, UA Moderate/2+ Budding Yeast(A) None Seen /HPF 06/25/2025 8:29 PM EDT [facility] Hyaline Casts, UA 7-12 None Seen /LPF 06/25/2025 8:29 PM EDT [facility] Methodology Manual Light Microscopy 06/25/2025 8:29 PM EDT [facility] Urine (Indwelling Urethral Catheter) Collection / Unknown 06/25/2025 8:01 PM EDT 06/25/2025 8:11 PM EDT us Ally Jeffers V, DIABETES NURSE URINE ORDERABLES Final Resul t [facility]
[address] [place] [address], [place] [phone] * (ABNORMAL) Urinalysis With Culture If Indicated - Indwelling Urethral Catheter (06/25/2025 8:01 PM EDT) Color, UA Yellow Yellow, Straw 06/25/2025 8:20 PM EDT [facility] Appearance, UA Turbid(A) Clear 06/25/2025 8:20 PM EDT [facility] pH, UA 6.0 5.0 - 8.0 06/25/2025 8:20 PM EDT [facility] Specific [place], UA 1.011 1.005 - 1.030 06/25/2025 8:20 PM EDT [facility] Glucose, UA Negative Negative 06/25/2025 8:20 PM EDT [facility] Ketones, UA Negative Negative 06/25/2025 8:20 PM EDT [facility] Bilirubin, UA Negative Negative 06/25/2025 8:20 PM EDT [facility] Blood, UA Large (3+)(A) Negative 06/25/2025 8:20 PM EDT [facility] Protein, UA Trace(A) Negative 06/25/2025 8:20 PM EDT [facility] Leuk Esterase, UA Large (3+)(A) Negative 06/25/2025 8:20 PM EDT [facility] Nitrite, UA Positive(A) Negative 06/25/2025 8:20 PM EDT [facility] Urobilinogen, UA 0.2 E.U./dL 0.2 - 1.0 E.U./dL 06/25/2025 8:20 PM EDT [facility] Urine (Indwelling Urethral Catheter) Collection / Unknown 06/25/2025 8:01 PM EDT 06/25/2025 8:11 PM EDT [facility] - 06/25/2025 8:20 PM EDT In absence of clinical symptoms, the presence of pyuria, bacteria, and/or nitrites on the urinalysis result does not correlate with infection. us Ally Pryor APRN URINE ORDERABLES Final Resul t [facility]
[address] [place] [address], * CT Abdomen Pelvis With Contrast (06/25/2025 7:36 PM EDT) Anatomical Region Laterality Modality Abdomen, Pelvis N/A Computed Tomogra phy 06/25/2025 7:38 PM EDT Addenda Addendum by Nehemias Ferraro MD on 06/25/2025 9:53 PM EDT ADDENDUM #1 IVC filter is present on imaging study. It is recommended that all patients with IVC filters in place have an active management care plan to monitor their IVC filter. If a care plan is not in place, patient should have a non emergent referral to an interventional specialist such as interventional radiology or other interventional vascular specialist for establishment of an IVC filter management care plan. Electronically Signed: Nehemias Ferraro 06/25/2025 9:53 PM EDT Workstation ID: [id number] ORIGINAL REPORT: CT ABDOMEN PELVIS W CONTRAST Date of Exam: 06/25/2025 7:05 PM EDT Indication: Diarrhea, hematuria, abdominal discomfort. Comparison: 06/02/2025 Technique: Axial CT images were obtained of the abdomen and pelvis following the uneventful intravenous administration of iodinated contrast. Reconstructed coronal and sagittal images were also obtained. Automated exposure control and iterative construction methods were used. Findings: Calcific atherosclerosis of the coronary arteries. No pleural or pericardial effusion. No suspicious infiltrate in the lower lungs. No definite ectopic bowel gas. No splenomegaly or suspicious splenic lesion. No suspicious hepatic abnormality. No definite acute biliary abnormality. No suspicious splenic or pancreatic abnormality. Aorta appears normal in caliber. There is calcific atherosclerosis of the aorta and branch vessels. IVC filter is present, as before. Lymph nodes do not appear significantly enlarged. Probable small bilateral upper pole renal cysts. There is expected excretion of contrast from the kidneys. No hydronephrosis. No dilated small bowel loops. No definite acute gastric abnormality. Small fat-containing umbilical hernia. There are bilateral inguinal hernias. Smaller right inguinal hernia contains fat. Larger left inguinal hernia contains a partial loop of sigmoid colon. No proximal dilatation. The appendix appears within normal limits. No definite findings of acute colonic inflammation. The bladder is moderately distended. Small amount of gas is present in the bladder, as before. Bladder wall thickening appears mildly decreased since the prior exam. Prostate does not appear significantly enlarged. De Los Santos catheter balloon and tip appears to terminate in the proximal penile urethra. There is some questionable wall thickening of the distal rectum. No other definite perirectal abnormality. There appears to be mild asymmetric prominence of the left inguinal lymph nodes. Severe left and moderate right hip osteoarthritis. Advanced degenerative changes in the lumbar spine. Mild chronic T11 and T12 height loss, as before. There is ankylosis at the sacroiliac joints. No visualized aggressive osseous lesion. Impression: 1.De Los Santos catheter balloon and tip appear to terminate in the proximal penile urethra. Recommend repositioning. 2.Moderate distention of the bladder with small amount of gas in the bladder, as before. Bladder wall thickening appears mildly decreased since the prior exam. Correlate with urinalysis. 3.Questionable wall thickening of the distal rectum. Correlate for symptoms of proctitis. 4.Bilateral inguinal hernias, larger on the left containing a partial loop of sigmoid colon. No proximal dilatation. 5.Mild asymmetric prominence of the left inguinal lymph nodes, likely reactive. Clinical follow-up recommended. 6.Calcific atherosclerosis. The ordering provider was notified of the results by Dr. Ferraro at 06/25/2025 7:54 PM EDT. Electronically Signed: Nehemias Ferraro 06/25/2025 7:55 PM EDT Workstation ID: [id number] Impressions 06/25/2025 7:55 PM EDT Impression: 1.De Los Santos catheter balloon and tip appear to terminate in the proximal penile urethra. Recommend repositioning. 2.Moderate distention of the bladder with small amount of gas in the bladder, as before. Bladder wall thickening appears mildly decreased since the prior exam. Correlate with urinalysis. 3.Questionable wall thickening of the distal rectum. Correlate for symptoms of proctitis. 4.Bilateral inguinal hernias, larger on the left containing a partial loop of sigmoid colon. No proximal dilatation. 5.Mild asymmetric prominence of the left inguinal lymph nodes, likely reactive. Clinical follow-up recommended. 6.Calcific atherosclerosis. The ordering provider was notified of the results by Dr. Ferraro at 06/25/2025 7:54 PM EDT. Electronically Signed: Nehemias Ferraro 06/25/2025 7:55 PM EDT Workstation ID: [id number] Narrative 06/25/2025 7:[address] ABDOMEN PELVIS W CONTRAST Date of Exam: 06/25/2025 7:05 PM EDT Indication: Diarrhea, hematuria, abdominal discomfort. Comparison: 06/02/2025 Technique: Axial CT images were obtained of the abdomen and pelvis following the uneventful intravenous administration of iodinated contrast. Reconstructed coronal and sagittal images were also obtained. Automated exposure control and iterative construction methods were used. Findings: Calcific atherosclerosis of the coronary arteries. No pleural or pericardial effusion. No suspicious infiltrate in the lower lungs. No definite ectopic bowel gas. No splenomegaly or suspicious splenic lesion. No suspicious hepatic abnormality. No definite acute biliary abnormality. No suspicious splenic or pancreatic abnormality. Aorta appears normal in caliber. There is calcific atherosclerosis of the aorta and branch vessels. IVC filter is present, as before. Lymph nodes do not appear significantly enlarged. Probable small bilateral upper pole renal cysts. There is expected excretion of contrast from the kidneys. No hydronephrosis. No dilated small bowel loops. No definite acute gastric abnormality. Small fat-containing umbilical hernia. There are bilateral inguinal hernias. Smaller right inguinal hernia contains fat. Larger left inguinal hernia contains a partial loop of sigmoid colon. No proximal dilatation. The appendix appears within normal limits. No definite findings of acute colonic inflammation. The bladder is moderately distended. Small amount of gas is present in the bladder, as before. Bladder wall thickening appears mildly decreased since the prior exam. Prostate does not appear significantly enlarged. De Los Santos catheter balloon and tip appears to terminate in the proximal penile urethra. There is some questionable wall thickening of the distal rectum. No other definite perirectal abnormality. There appears to be mild asymmetric prominence of the left inguinal lymph nodes. Severe left and moderate right hip osteoarthritis. Advanced degenerative changes in the lumbar spine. Mild chronic T11 and T12 height loss, as before. There is ankylosis at the sacroiliac joints. No visualized aggressive osseous lesion. Procedure Note NettNehemias MD - 06/25/2025 CT ABDOMEN PELVIS W CONTRAST Date of Exam: 06/25/2025 7:05 PM EDT Indication: Diarrhea, hematuria, abdominal discomfort. Comparison: 06/02/2025 Technique: Axial CT images were obtained of the abdomen and pelvisfollowing the uneventful intravenous administration of iodinated contrast.Reconstructed coronal and sagittal images were also obtained. Automatedexposure control and iterative construction methods were used. Findings: Calcific atherosclerosis of the coronary arteries. No pleural orpericardial effusion. No suspicious infiltrate in the lower lungs. Nodefinite ectopic bowel gas. No splenomegaly or suspicious splenic lesion. No suspicious hepaticabnormality. No definite acute biliary abnormality. No suspicious splenicor pancreatic abnormality. Aorta appears normal in caliber. There iscalcific atherosclerosis of the aorta and branch vessels. IVC filter is present, as before. Lymph nodes do notappear significantly enlarged. Probable small bilateral upper pole renalcysts. There is expected excretion of contrast from the kidneys. Nohydronephrosis. No dilated small bowel loops. No definite acute gastric abnormality. Small fat-containingumbilical hernia. There are bilateral inguinal hernias. Smaller rightinguinal hernia contains fat. Larger left inguinal hernia contains apartial loop of sigmoid colon. No proximal dilatation. The appendix appears within normal limits. No definitefindings of acute colonic inflammation. The bladder is moderately distended. Small amount of gas is present in thebladder, as before. Bladder wall thickening appears mildly decreased sincethe prior exam. Prostate does not appear significantly enlarged. Foleycatheter balloon and tip appears to terminate in the proximal penile urethra. There is some questionablewall thickening of the distal rectum. No other definite perirectalabnormality. There appears to be mild asymmetric prominence of the leftinguinal lymph nodes. Severe left and moderate right hip osteoarthritis. Advanced degenerativechanges in the lumbar spine. Mild chronic T11 and T12 height loss, asbefore. There is ankylosis at the sacroiliac joints. No visualizedaggressive osseous lesion. IMPRESSION: Impression: 1.De Los Santos catheter balloon and tip appear to terminate in the proximalpenile urethra. Recommend repositioning. 2.Moderate distention of the bladder with small amount of gas in thebladder, as before. Bladder wall thickening appears mildly decreased sincethe prior exam. Correlate with urinalysis. 3.Questionable wall thickening of the distal rectum. Correlate forsymptoms of proctitis. 4.Bilateral inguinal hernias, larger on the left containing a partial loopof sigmoid colon. No proximal dilatation. 5.Mild asymmetric prominence of the left inguinal lymph nodes, likelyreactive. Clinical follow-up recommended. 6.Calcific atherosclerosis. The ordering provider was notified of the results by Dr. Ferraro at1 7:54 PM EDT. Electronically Signed: Nehemias Ferraro 06/25/2025 7:55 PM EDT Workstation ID: [id number] us Ally Zeyad V, DIABETES NURSE IMG CT ORDERABLES Edited Res ult - Final * XR Foot 3+ View Left (06/25/2025 6:50 PM EDT) Anatomical Region Laterality Modality Lower Extremities, Foot Left Radiogra phic Imaging 06/25/2025 6:59 PM EDT Impressions 06/25/2025 7:03 PM EDT Impression: Marked soft tissue swelling at the stump and dorsum of the foot suggest cellulitis.. Small shallow soft tissue ulceration distal dorsum of the foot No acute osseous abnormality. If there is concern for osteomyelitis MRI is recommended. Electronically Signed: Duglas Lay MD 06/25/2025 7:03 PM EDT Workstation ID: [id number] Narrative 06/25/2025 7:03 PM EDT XR FOOT 3+ VW LEFT Date of Exam: 06/25/2025 6:15 PM EDT Indication: diabetic ulcer. Comparison: August 2024 Findings: Bones are grossly osteopenic. There is marked soft tissue swelling overlying dorsum of the foot and at the stump distal to the metatarsal ray resection sites. There is shallow soft tissue ulceration at the dorsum of the foot distally. 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 There is dense vascular calcification noted. Procedure Note Duglas Lay MD - 06/25/2025 XR FOOT 3+ VW LEFT Date of Exam: 06/25/2025 6:15 PM EDT Indication: diabetic ulcer. Comparison: August 2024 Findings: Bones are grossly osteopenic. There is marked soft tissue swellingoverlying dorsum of the foot and at the stump distal to the metatarsal rayresection sites. There is shallow soft tissue ulceration at the dorsum of the footdistally. 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 There is dense vascular calcification noted. IMPRESSION: Impression: Marked soft tissue swelling at the stump and dorsum of the foot suggestcellulitis.. Small shallow soft tissue ulceration distal dorsum of the foot No acute osseous abnormality. If there is concern for osteomyelitis MRI is recommended. Electronically Signed: Duglas Lay MD 06/25/2025 7:03 PM EDT Workstation ID: [id number] Ally Pryor APRN IMG DIAGNOSTIC IMAGING ORDER SEB Final Result * Telemetry Scan (06/25/2025 6:21 PM EDT) [facility] ECG ORDERABLES Final Result * Blood Culture - Blood, Arm, Left (06/25/2025 6:20 PM EDT) Blood Culture No growth at 5 days 06/30/2025 7:32 PM EDT [facility] Blood Structure of left upper limb / Unknown Venipuncture / Unknown 06/25/2025 6:20 PM EDT 06/25/2025 7:16 PM EDT Ally Pryor APRN MICROBIOLOGY - GENERAL ORDER SEB Final Result [facility]
[address] [place] [address], * (ABNORMAL) Wound Culture - Swab, Foot, Left (06/25/2025 6:18 PM EDT) Wound Culture Heavy growth (4+) Staphylococcus aureus, MRSA(A) MURRAY 06/29/2025 6:45 AM EDT [facility] Comment: Methicillin resistant Staphylococcus aureus, Patient may be an isolation risk. Wound Culture Moderate growth (3+) Morganella morganii ssp morganii(A) MURRAY 06/29/2025 6:45 AM EDT [facility] Wound Culture Moderate growth (3+) Proteus mirabilis ESBL(A) MURRAY 06/29/2025 6:45 AM EDT [facility] Comment: Consider infectious disease consult. Susceptibility results may not correlate to clinical outcomes. Gram Stain Few (2+) WBCs seen 06/29/2025 6:45 AM EDT [facility] Gram Stain Few (2+) Gram positive cocci in pairs, chains and clusters 06/29/2025 6:45 AM EDT [facility] Gram Stain Few (2+) Gram negative bacilli 06/29/2025 6:45 AM EDT [facility] Swab Structure of left foot / Unknown Collection / Unknown 06/25/2025 6:18 PM EDT 06/25/2025 7:27 PM EDT Narrative Organism Antibiotic Method Susceptibility Staphylococcus aureus, MRSA Clindamycin MURRAY 0.25 ug/ml: Susceptible Staphylococcus aureus, MRSA Erythromycin MURRAY >=8 ug/ml: Resistant Staphylococcus aureus, MRSA Oxacillin MURRAY >=4 ug/ml: Resistant Staphylococcus aureus, MRSA Rifampin MURRAY <=0.5 ug/ml: Susceptible Staphylococcus aureus, MRSA Tetracycline MURRAY <=1 ug/ml: Susceptible Staphylococcus aureus, MRSA Trimethoprim + Sulfamethoxazole MURRAY >=320 ug/ml: Resistant Staphylococcus aureus, MRSA Vancomycin MURRAY <=0.5 ug/ml: Susceptible Morganella morganii ssp morganii Amoxicillin + Clavulanate MURRAY >=32 ug/ml: Resistant Morganella morganii ssp morganii Ampicillin MURRAY >=32 ug/ml: Resistant Morganella morganii ssp morganii Ampicillin + Sulbactam MURRAY >=32 ug/ml: Resistant Morganella morganii ssp morganii Cefazolin (Non Urine) MURRAY >=32 ug/ml: Resistant Morganella morganii ssp morganii Cefotaxime MURRAY 1 ug/ml: Susceptible Morganella morganii ssp morganii Cefuroxime axetil MURRAY >=64 ug/ml: Resistant Morganella morganii ssp morganii Ciprofloxacin MURRAY >=4 ug/ml: Resistant Morganella morganii ssp morganii Gentamicin MURRAY <=1 ug/ml: Susceptible Morganella morganii ssp morganii Levofloxacin MURRAY 4 ug/ml: Resistant Morganella morganii ssp morganii Piperacillin + Tazobactam MURRAY <=4 ug/ml: Susceptible Morganella morganii ssp morganii Tetracycline MURRAY <=1 ug/ml: Susceptible Morganella morganii ssp morganii Trimethoprim + Sulfamethoxazole MURRAY >=320 ug/ml: Resistant Morganella morganii ssp morganii Cefepime 0.047 ug/ml: Susceptible Morganella morganii ssp morganii Ceftazidime 1.5 ug/ml: Susceptible Comment:Cefotaxime susceptib ility can be used as a surrogate for ceftriaxone susceptibility Proteus mirabilis ESBL Ciprofloxacin MURRAY >=4 ug/ml: Resistant Proteus mirabilis ESBL Ertapenem MURRAY <=0.12 ug/ml: Susceptible Proteus mirabilis ESBL Levofloxacin MURRAY >=8 ug/ml: Resistant Proteus mirabilis ESBL Meropenem MURRAY <=0.25 ug/ml: Susceptible Proteus mirabilis ESBL Tetracycline MURRAY >=16 ug/ml: Resistant Proteus mirabilis ESBL Trimethoprim + Sulfamethoxazole MURRAY >=320 ug/ml: Resistant Comment:With the exception o f urinary-sourced infections, aminoglycosides should not be used as monotherapy. us Ally Pryor APRN MICROBIOLOGY - GENERAL ORDER SEB Final Result [facility]
[address] [place] [address], [facility]
[address] [place] [address], * (ABNORMAL) CBC Auto Differential (06/25/2025 6:17 PM EDT) WBC 9.96 3.40 - 10.80 10*3/mm3 06/25/2025 6:34 PM EDT [facility] RBC 3.91(L) 4.14 - 5.80 10*6/mm3 06/25/2025 6:34 PM EDT [facility] Hemoglobin 8.9(L) 13.0 - 17.7 g/dL 06/25/2025 6:34 PM EDT [facility] Hematocrit 29.8(L) 37.5 - 51.0 % 06/25/2025 6:34 PM EDT [facility] MCV 76.2(L) 79.0 - 97.0 fL 06/25/2025 6:34 PM EDT [facility] MCH 22.8(L) 26.6 - 33.0 pg 06/25/2025 6:34 PM EDT [facility] MCHC 29.9(L) 31.5 - 35.7 g/dL 06/25/2025 6:34 PM EDT [facility] RDW 16.6(H) 12.3 - 15.4 % 06/25/2025 6:34 PM EDT [facility] RDW-SD 45.8 37.0 - 54.0 fl 06/25/2025 6:34 PM EDT [facility] MPV 9.5 6.0 - 12.0 fL 06/25/2025 6:34 PM EDT [facility] Platelets 281 140 - 450 10*3/mm3 06/25/2025 6:34 PM EDT [facility] Neutrophil % 70.8 42.7 - 76.0 % [facility] Lymphocyte % 14.9(L) 19.6 - 45.3 % 06/25/2025 6:[facility] Monocyte % 10.1 5.0 - 12.0 % 06/25/2025 6:34 [facility] Eosinophil % 3.2 0.3 - 6.2 % 06/25/2025 6:34 PM [facility] Basophil % 0.5 0.0 - 1.5 % 06/25/2025 6:34 [facility] Immature Grans % 0.5 0.0 - 0.5 % 06/25/2025 6:34 PM [facility] Neutrophils, Absolute 7.05(H) 1.70 - 7.00 10*3/mm3 06/25/2025 6:34 PM [facility] Lymphocytes, Absolute 1.48 0.70 - 3.10 10*3/mm3 06/25/2025 6:34 PM [facility] Monocytes, Absolute 1.01(H) 0.10 - 0.90 10*3/mm3 06/25/2025 6:[facility] Eosinophils, Absolute 0.32 0.00 - 0.40 10*3/mm3 06/25/2025 6:34 PM EDT [facility] Basophils, Absolute 0.05 0.00 - 0.20 10*3/mm3 06/25/2025 6:34 PM EDT [facility] Immature Grans, Absolute 0.05 0.00 - 0.05 10*3/mm3 06/25/2025 6:34 PM EDT [facility] nRBC 0.0 0.0 - 0.2 /100 WBC 06/25/2025 6:34 PM EDT [facility] Blood Venipuncture / Unknown 06/25/2025 6:17 PM EDT 06/25/2025 6:30 PM EDT Ally Pryor APRN LAB BLOOD ORDERABLES Final R esult Performing Organization Address City/[facility]/ZIP Co de Phone Number [facility]
[address] [place] [address], * (ABNORMAL) C-reactive Protein (06/25/2025 6:17 PM EDT) C-Reactive Protein 4.34(H) 0.00 - 0.50 mg/dL 06/25/2025 7:03 PM EDT [facility] Blood Venipuncture / Unknown 06/25/2025 6:17 PM EDT 06/25/2025 6:30 PM EDT Ally Pryor APRN LAB BLOOD ORDERABLES Final R esult [facility]
[address] [place] [address], [place] [phone] * Procalcitonin (06/25/2025 6:17 PM EDT) Procalcitonin 0.12 0.00 - 0.25 ng/mL 06/25/2025 7:03 PM EDT [facility] Blood Venipuncture / Unknown 06/25/2025 6:17 PM EDT 06/25/2025 6:30 PM EDT Narrative [facility] - 06/25/2025 7:03 PM EDT As a Marker for Sepsis (Non-Neonates): [...] Day 4 values are available. Refer to http://www.ktlrxf-itl-cxnzruwxvn.com Change in PCT <=80% A decrease of [...] with severe sepsis or septic shock. us Ally Pryor APRN LAB BLOOD ORDERABLES Final R esult [facility]
[address] [place] [address], * Lactic Acid, Plasma (06/25/2025 6:17 PM EDT) Lactate 1.7 0.5 - 2.0 mmol/L 06/25/2025 6:55 PM EDT [facility] Comment:Falsely depressed re sults may occur on samples drawn from patients receiving N-Acetylcysteine (NAC) or Metamizole. Blood Venipuncture / Unknown 06/25/2025 6:17 PM EDT 06/25/2025 6:30 PM EDT us Ally Pryor APRN LAB BLOOD ORDERABLES Final R esult [facility]
[address] [place] [address], * (ABNORMAL) Comprehensive Metabolic Panel (06/25/2025 6:17 PM EDT) Glucose 173(H) 65 - 99 mg/dL 06/25/2025 7:03 PM EDT [facility] BUN 27.3(H) 8.0 - 23.0 mg/dL 06/25/2025 7:03 PM EDT [facility] Creatinine 1.21 0.76 - 1.27 mg/dL 06/25/2025 7:03 PM EDT [facility] Sodium 138 136 - 145 mmol/L 06/25/2025 7:03 PM EDT [facility] Potassium 4.4 3.5 - 5.2 mmol/L 06/25/2025 7:03 PM EDT [facility] Chloride 106 98 - 107 mmol/L 06/25/2025 7:03 PM EDT [facility] CO2 21.2(L) 22.0 - 29.0 mmol/L 06/25/2025 7:03 PM EDT [facility] Calcium 8.3(L) 8.6 - 10.5 mg/dL 06/25/2025 7:03 PM EDT [facility] Total Protein 7.2 6.0 - 8.5 g/dL 06/25/2025 7:03 PM EDT [facility] Albumin 3.2(L) 3.5 - 5.2 g/dL 06/25/2025 7:03 PM EDT [facility] ALT (SGPT) 14 1 - 41 U/L 06/25/2025 7:03 PM EDT [facility] AST (SGOT) 15 1 - 40 U/L 06/25/2025 7:03 PM EDT [facility] Alkaline Phosphatase 127(H) 39 - 117 U/L 06/25/2025 7:03 PM EDT [facility] Total Bilirubin 0.2 0.0 - 1.2 mg/dL 06/25/2025 7:03 PM EDT [facility] Globulin 4.0 gm/dL 06/25/2025 7:03 PM EDT [facility] Comment:Calculated Result A/G Ratio 0.8 g/dL 06/25/2025 7:03 PM EDT [facility] BUN/Creatinine Ratio 22.6 7.0 - 25.0 06/25/2025 7:03 PM EDT [facility] Anion Gap 10.8 5.0 - 15.0 mmol/L 06/25/2025 7:03 PM EDT [facility] eGFR 64.0 >60.0 mL/min/1.7 3 06/25/2025 7:03 PM EDT [facility] Blood Venipuncture / Unknown 06/25/2025 6:17 PM EDT 06/25/2025 6:30 PM EDT [facility]ATORY - 06/25/2025 7:03 PM EDT GFR Categories in Chronic Kidney Disease [...] not include race as a factor us Ally Pryor APRN LAB BLOOD ORDERABLES Final R esult [facility]
[address] [id number] [phone] documented in this encounter Visit Diagnoses Diagnosis Wound infection- Primary Posttraumatic wound infection not elsewhere classified Cellulitis of left lower extremity Hematuria, unspecified type Urinary tract infection associated with indwelling urethral catheter, initial encounter Diarrhea, unspecified type PAD (peripheral artery disease) Unspecified peripheral vascular disease Wound infection Posttraumatic wound infection not elsewhere classified Critical limb ischemia of left lower extremity Cellulitis Cellulitis and abscess of unspecified site Acute UTI (urinary tract infection) PAD (peripheral artery disease) Unspecified peripheral vascular disease Diarrhea of presumed infectious origin Type 2 diabetes mellitus, with long-term current use of insulin Acute on chronic blood loss anemia Primary hypertension Unspecified essential hypertension Coronary artery disease involving [place] coronary artery of [place] heart without angina pectoris BPH without obstruction/lower urinary tract symptoms GERD without esophagitis Esophageal reflux Seizure disorder Unspecified epilepsy without mention of intractable epilepsy Bilateral inguinal hernia Inguinal hernia without mention of obstruction or gangrene, bilateral, (not specified as recurrent) Gastroenteritis due to norovirus documented in this encounter Admitting Diagnoses Diagnosis Cellulitis Cellulitis and abscess of unspecified site Wound infection Posttraumatic wound infection not elsewhere classified documented in this encounter Administered Medications Inactive Administered Medications - up to 3 most recent administrations Medication Order MAR Action Action Date Dose Rate Site acetaminophen (TYLENOL) tablet 1,000 mg 1,000 mg, Oral, Every 8 Hours, First dose on Wed07/06/25 at 0915, If given for fever, use fever parameter: [...] Pain Score of 7-10, CPOT 5-8 Given 08/02/2025 8:23 AM EST 1,000 mg Given 08/02/2025 12:31 AM EST 1,000 mg Given 08/01/2025 5:41 PM EST 1,000 mg acetaminophen (TYLENOL) tablet 650 mg 650 mg, Oral, Every 4 Hours PRN, Mild Pain, Starting on Wed06/25/25 at 2308, If given for fever, use fever parameter: [...] Pain Score of 7-10, CPOT 5-8 Given 07/05/2025 1:11 PM EDT 6 50 mg Given 07/04/2025 11:15 AM EDT 650 mg Given 06/29/2025 3:43 AM EDT 650 mg aluminum-magnesium hydroxide-simethicone (MAALOX MAX) 400-400-40 MG/5ML suspension 15 mL 15 mL, Oral, Every 6 Hours PRN, Heartburn, Starting on Wed06/25/25 at 2309, Maximum 60 mL in 24 hours. apixaban (ELIQUIS) tablet 5 mg 5 mg, Oral, 2 Times Daily, First dose on Wed06/26/25 at 0900, Tablet may be crushed and suspended in 60 mL of water or D5W and immediately delivered via NG tube., Indications: Other - full anticoagulationIndications:Other - full anticoagulation Given 08/02/2025 8:23 AM EST 5 mg Given 08/01/2025 9:35 PM EST 5 mg Given 08/01/2025 8:23 AM EST 5 mg ascorbic acid (VITAMIN C) tablet 500 mg 500 mg, Oral, Daily, First dose on Wed06/26/25 at 0900 Given 08/02/2025 8:25 AM EST 500 mg Given 08/01/2025 8:23 AM EST 500 mg Given 07/31/2025 9:18 AM EST 500 mg baclofen (LIORESAL) tablet 10 mg 10 mg, Oral, Every 12 Hours Scheduled, First dose on Wed06/26/25 at 0200, Take with food if GI upset occurs. Given 07/23/2025 9:16 PM EST 10 mg Given 07/23/2025 9:44 AM EST 10 mg Given 07/22/2025 9:43 PM EST 10 mg baclofen (LIORESAL) tablet 5 mg 5 mg, Oral, Every 12 Hours Scheduled, First dose (after last modification) on Wed07/24/25 at 2100, Take with food if GI upset occurs. Given 08/02/2025 8:24 AM EST 5 mg Given 08/01/2025 9:35 PM EST 5 mg Given 08/01/2025 8:24 AM EST 5 mg benzonatate (TESSALON) capsule 200 mg 200 mg, Oral, 3 Times Daily PRN, Cough, Starting on Wed07/16/25 at 1155, Do not crush or chew the capsules or tablets. The drug may not work as designed if the capsule or tablet is crushed or chewed. Swallow whole. Swallow whole. Do not crush, chew, or open capsule. Given 07/18/2025 3:[address] 200 mg Given 07/17/2025 10:49 PM EST 200 mg Given 07/16/2025 12:09 PM EST 200 mg bisacodyl (DULCOLAX) EC tablet 5 mg 5 mg, Oral, Daily PRN, Constipation, Use if polyethylene glycol is ineffective, Starting on Wed06/25/25 at 2309, Use if no bowel movement after 12 hours. Swallow whole. Do not crush, split, or chew tablet. bisacodyl (DULCOLAX) suppository 10 mg 10 mg, Rectal, Daily PRN, Constipation, Use if bisacodyl oral is ineffective, Starting on Wed06/25/25 at 2309, Use if no bowel movement after 12 hours. Hold for diarrhea calcium gluconate 2000-675 MG/100ML NACL IVPB 2,000 mg, Intravenous, Administer over 15 Minutes, Once, On Wed07/06/25 at 1530, For 1 dose New 07/06/2025 4:37 PM EDT 2,000 mg calcium gluconate 2000-675 MG/100ML NACL IVPB 2,000 mg, Intravenous, Once, On Wed07/12/25 at 0915, For 1 dose New 07/12/2025 9:54 AM EDT 2,000 mg carvedilol (COREG) tablet 3.125 mg 3.125 mg, Oral, 2 Times Daily With Meals, First dose on Wed06/26/25 at 0800, Hold for SBP less than 100, DBP less than 60, or heart rate less than 50. If a dose is held, please contact the provider. Give with food. Given 08/02/2025 8:25 AM EST 3.125 mg Given 08/01/2025 5:41 PM EST 3.125 mg Given 08/01/2025 8:22 AM EST 3.125 mg clopidogrel (PLAVIX) tablet 75 mg 75 mg, Oral, Daily, First dose on Wed06/26/25 at 0900 Given 08/02/2025 8:23 AM EST 75 mg Given 08/01/2025 8:23 AM EST 75 mg Given 07/31/2025 9:14 AM EST 75 mg DAPTOmycin (CUBICIN) 550 mg in sodium chloride 0.9 % 50 mL IVPB 550 mg (rounded from 567.6 mg = 6 mg/kg 94.6 kg Adjusted weight), Intravenous, at 100 mL/hr, Administer over 30 Minutes, Once, On Wed06/25/25 at 2128, For 1 dose, Caution: Look alike/sound alike drug alert. Refrigerate. Do not shake., Reason for Therapy: Empiric VRE coverage in patient with VRE history, Indications: Bone and/or Joint Infection, EmpiricIndications:Bone and/or Joint Infection,Empiric New 06/25/2025 10:37 PM EDT 550 mg 100 mL /hr DAPTOmycin (CUBICIN) 550 mg in sodium chloride 0.9 % 50 mL IVPB 550 mg (rounded from 567.6 mg = 6 mg/kg 94.6 kg Adjusted weight), Intravenous, at 100 mL/hr, Administer over 30 Minutes, Every 24 Hours, First dose on Wed06/26/25 at 2100, For 5 days, Caution: Look alike/sound alike drug alert. Refrigerate. Do not shake., Reason for Therapy: Empiric VRE coverage in patient with VRE history, Indications: Bone and/or Joint Infection, Skin and Soft Tissue InfectionIndications:Bone and/or Joint Infection,Skin and Soft Tissue Infection New Bag 06/26/2025 9:38 PM EDT 550 mg 100 mL/hr dextrose (D50W) (25 g/50 mL) IV injection 25 g 25 g, Intravenous, Once, On Wed07/06/25 at 1530, For 1 dose, Administer IV for Hyperkalemia Given 07/06/2025 2:53 PM EDT 25 g dextrose (D50W) (25 g/50 mL) IV injection 25 g 25 g, Intravenous, Once, On Wed07/11/25 at 0630, For 1 dose, Administer IV for Hyperkalemia Given 07/11/2025 6:19 AM EDT 25 g dextrose (D50W) (25 g/50 mL) IV injection 25 g 25 g, Intravenous, Once, On Maggie 07/12/25 at 0645, For 1 dose, Administer IV for Hyperkalemia Given 07/12/2025 6:36 AM EDT 25 g dextrose (D50W) (25 g/50 mL) IV injection 25 g 25 g, Intravenous, Every 15 Minutes PRN, Low Blood Sugar, Blood Sugar Less Than 70, Patient Has IV Access - Unresponsive, NPO or Unable To Safely Swallow, Starting on 07/14/25 at 1458 Given 07/14/2025 3:02 PM EDT 25 g dextrose (D50W) (25 g/50 mL) IV injection 25 g 25 g, Intravenous, Every 15 Minutes PRN, Low Blood Sugar, Blood Sugar Less Than 70, Starting on Wed07/27/25 at 0805, Blood sugar less than 70; patient has IV access - Unresponsive, NPO or Unable To Safely Swallow dextrose (GLUTOSE) oral gel 15 g 15 g, Oral, Every 15 Minutes PRN, Low Blood Sugar, Blood sugar less than 70, Starting on Wed07/27/25 at 0805, BS<70, Patient Alert, Is not NPO, Can safely swallow. diphenhydrAMINE-zinc acetate 2-0.1 % cream 1 Application 1 Application, Topical, 3 Times Daily PRN, Rash, Irritation, Itching, Starting on 07/07/25 at 0100, Apply to affected area as needed Caution: Look alike/sound alike drug alert. (BKC) famotidine (PEPCID) tablet 20 mg 20 mg, Oral, 2 Times Daily Before Meals, First dose on Wed06/26/25 at 0930 Given 08/01/2025 5:42 PM EST 20 mg Given 08/01/2025 6:02 AM EST 20 mg Given 07/31/2025 5:09 PM EST 20 mg finasteride (PROSCAR) tablet 5 mg 5 mg, Oral, Daily, First dose on Wed06/26/25 at 0900, Group 2 ([place]) Hazardous Drug - Reproductive Risk Only - See Handling Guide Given 08/02/2025 8:23 AM EST 5 mg Given 08/01/2025 8:22 AM EST 5 mg Given 07/31/2025 9:17 AM EST 5 mg folic acid (FOLVITE) tablet 1 mg 1 mg, Oral, Daily, First dose on Wed06/26/25 at 0900 Given 08/02/2025 8:23 AM EST 1 mg Given 08/01/2025 8:23 AM EST 1 mg Given 07/31/2025 9:17 AM EST 1 mg furosemide (LASIX) injection 20 mg 20 mg, Intravenous, Once, On Wed07/06/25 at 1530, For 1 dose, Doses over 100 mg will dispense an IVPB bolus. Given 07/06/2025 2:53 PM EDT 20 mg furosemide (LASIX) injection 20 mg 20 mg, Intravenous, Once, On Wed07/12/25 at 0915, For 1 dose, Doses over 100 mg will dispense an IVPB bolus. Given 07/12/2025 9:53 AM EDT 20 mg gabapentin (NEURONTIN) capsule 200 mg 200 mg, Oral, Every 8 Hours Scheduled, First dose on Wed06/26/25 at 0600, (MAGGI) Given 06/29/2025 5:33 AM EDT 200 mg Given 06/28/2025 9:40 PM EDT 200 mg Given 06/28/2025 2:56 PM EDT 200 mg gabapentin (NEURONTIN) capsule 300 mg 300 mg, Oral, Every 8 Hours Scheduled, First dose (after last modification) on Wed06/29/25 at 2200, (MAGGI) Given 07/03/2025 6:22 AM EDT 300 mg Given 07/02/2025 9:18 PM EDT 300 mg Given 07/02/2025 2:27 PM EDT 300 mg gabapentin (NEURONTIN) capsule 400 mg 400 mg, Oral, Every 8 Hours Scheduled, First dose (after last modification) on Wed07/04/25 at 1430, (MAGGI) Given 07/06/2025 1:23 PM EDT 400 mg Given 07/06/2025 6:53 AM EDT 400 mg Given 07/05/2025 10:35 PM EDT 400 mg gabapentin (NEURONTIN) capsule 400 mg 400 mg, Oral, Every 8 Hours Scheduled, First dose (after last modification) on Wed07/24/25 at 2200, (MAGGI) Given 08/02/2025 1:51 PM EST 400 mg Given 08/01/2025 9:35 PM EST 400 mg Given 08/01/2025 12:52 PM EST 400 mg gabapentin (NEURONTIN) capsule 600 mg 600 mg, Oral, Every 8 Hours Scheduled, First dose (after last modification) on Wed07/06/25 at 2200, (MAGGI) Given 07/23/2025 9:16 PM EST 600 mg Given 07/23/2025 6:00 AM EST 600 mg Given 07/22/2025 9:42 PM EST 600 mg glucagon (GLUCAGEN) injection 1 mg 1 mg, Subcutaneous, Every 15 Minutes PRN, Low Blood Sugar, Blood Glucose Less Than 70 - Patient Without IV Access - Unresponsive, NPO or Unable To Safely Swallow, Starting on Wed07/14/25 at 1458, Reconstitute powder for injection by adding 1 mL of route sales person-supplied sterile diluent or sterile water for injection to a vial containing 1 mg of the drug, to provide solutions containing 1 mg/mL. Shake vial gently to dissolve. haloperidol lactate (HALDOL) injection 1 mg 1 mg, Intramuscular, Once, On Wed07/14/25 at 0545, For 1 dose, For IV Push, administer no faster than 5 mg / minute. Given 07/14/2025 4:56 AM EDT 1 mg Left Deltoid heparin (porcine) 5000 UNIT/ML injection 5,000 Units 5,000 Units, Subcutaneous, Every 8 Hours Scheduled, First dose on Wed06/26/25 at 1400, Indications: Other - full anticoagulation, VTE ProphylaxisIndications:Othe r - full anticoagulation,VTE Prophylaxis Given 07/07/2025 5:17 AM EDT 5,000 Units Right Lower Abdomen Given 07/06/2025 10:07 PM EDT 5,000 Units Left Upper Abdomen Given 07/06/2025 1:23 PM EDT 5,000 Units L eft Arm HYDROmorphone (DILAUDID) injection 0.25 mg 0.25 mg, Intravenous, Every 4 Hours PRN, Severe Pain, Starting on 07/04/25 at 1600, For 5 days, Based on patient request [...] Pain Score of 7-10, CPOT 5-8 Given 07/06/2025 8:20 AM EDT 0.25 mg Given 07/06/2025 4:20 AM EDT 0.25 mg Given 07/05/2025 10:44 PM EDT 0.25 mg HYDROmorphone (DILAUDID) injection 1 mg 1 mg, Intravenous, Once, On 07/08/25 at 1445, For 1 dose, Based on patient request - if ordered for moderate or severe pain, provider allows for administration of a medication prescribed for a lower pain scale. (MAGGI) Caution: Look alike/sound alike drug alert If given for pain, use the following pain scale: Mild Pain = Pain Score of 1-3, CPOT 1-2 Moderate Pain = Pain Score of 4-6, CPOT 3-4 Severe Pain = Pain Score of 7-10, CPOT 5-8 Given 07/08/2025 1:56 PM EDT 1 mg HYDROmorphone (DILAUDID) injection 1 mg 1 mg, Intravenous, Once, On Maggie 07/19/25 at 1700, For 1 dose, Based on patient request - if ordered for moderate or severe pain, provider allows for administration of a medication prescribed for a lower pain scale. (MAGGI) Caution: Look alike/sound alike drug alert If given for pain, use the following pain scale: Mild Pain = Pain Score of 1-3, CPOT 1-2 Moderate Pain = Pain Score of 4-6, CPOT 3-4 Severe Pain = Pain Score of 7-10, CPOT 5-8 Given 07/19/2025 4:14 PM EST 1 mg influenza vac split high-dose (FLUZONE HIGH DOSE) injection 0.5 mL 0.5 mL, Intramuscular, During Hospitalization, Immunization, Starting on 06/30/25 at 1421, For 1 dose, Do Not Administer if Temperature Greater Than 102F & Notify Pharmacy Pneumococcal & Influenza Vaccines May Be Given At The Same Time in SEPARATE Injections. Do not administer if temperature greater than 102F & notify pharmacy. Pneumococcal and influenza vaccines may be given at the same time in SEPARATE injections. insulin glargine (LANTUS, SEMGLEE) injection 22 Units 22 Units, Subcutaneous, Nightly, First dose (after last modification) on Maggie 07/26/25 at 2100, ([facility]) Given 08/01/2025 9:35 PM EST 22 Units Left Arm Given 07/31/2025 9:52 PM EST 22 Units Ri ght Lower Abdomen Given 07/30/2025 9:05 PM EST 22 Units Ri ght Lower Abdomen insulin glargine (LANTUS, SEMGLEE) injection 30 Units 30 Units, Subcutaneous, Nightly, First dose (after last modification) on 07/14/25 at 2100, ([facility]) Given 07/25/2025 8:57 PM EST 30 Units Left Lower Abdomen Given 07/24/2025 11:20 PM EST 30 Units L eft Lower Abdomen Given 07/23/2025 9:18 PM EST 30 Units Le ft Arm insulin glargine (LANTUS, SEMGLEE) injection 40 Units 40 Units, Subcutaneous, Nightly, First dose (after last modification) on 07/09/25 at 2100, ([facility]) Given 07/13/2025 9:10 PM EDT 40 Units Left Arm Given 07/12/2025 9:07 PM EDT 40 Units Ri ght Upper Abdomen Given 07/11/2025 10:20 PM EDT 40 Units L eft Lower Abdomen insulin glargine (LANTUS, SEMGLEE) injection 56 Units 56 Units, Subcutaneous, Nightly, First dose on Wed06/26/25 at 0200, ([facility]) Given 07/08/2025 10:38 PM EDT 56 Units Left Lower Abdomen Given 07/07/2025 8:49 PM EDT 56 Units Le ft Upper Abdomen Given 07/06/2025 10:05 PM EDT 56 Units L eft Lower Abdomen Insulin Lispro (humaLOG) injection 2-7 Units 2-7 Units, Subcutaneous, 3 Times Daily With Meals, First dose (after last modification) on Wed07/27/25 at 0900, Correction Insulin - Low Dose - Total [...] mg/dL - 7 units & Call Provider (BK) Caution: Look alike/sound alike drug alert(BKC) Given 08/01/2025 5:42 PM EST 2 Units Le ft Arm Given 07/31/2025 5:09 PM EST 2 Units Ri ght Lower Abdomen Given 07/29/2025 5:56 PM EST 2 Units Ri ght Arm insulin regular (humuLIN R,novoLIN R) injection 10 Units 10 Units, Intravenous, Once, On Wed07/06/25 at 1530, For 1 dose, Administer IV for Hyperkalemia (BKC) Caution: Look alike/sound alike drug alert(BKC) Given 07/06/2025 2:52 PM EDT 10 Units insulin regular (humuLIN R,novoLIN R) injection 10 Units 10 Units, Intravenous, Once, On Wed07/11/25 at 0630, For 1 dose, Administer IV for Hyperkalemia (BKC) Caution: Look alike/sound alike drug alert(BKC) Given 07/11/2025 6:18 AM EDT 10 Units insulin regular (humuLIN R,novoLIN R) injection 10 Units 10 Units, Intravenous, Once, On Wed07/12/25 at 0645, For 1 dose, Administer IV for Hyperkalemia (BKC) Caution: Look alike/sound alike drug alert(BKC) Given 07/12/2025 6:36 AM EDT 10 Units iopamidol (ISOVUE-300) 61 % injection 85 mL 85 mL, Intravenous, Once in Imaging, On Wed06/25/25 at 1926, For 1 dose Given 06/25/2025 7:29 PM EDT 85 mL iopamidol (ISOVUE-370) 76 % injection 125 mL 125 mL, Intravenous, Once in Imaging, On Tu06/26/25 at 0545, For 1 dose Given 06/26/2025 4:51 AM EDT 125 mL ipratropium-albuterol (DUO-NEB) nebulizer solution 3 mL 3 mL, Nebulization, Every 6 Hours PRN, Shortness of Air, Wheezing, Starting on Wed06/26/25 at 0130, Include Respiratory Treatment Education lactated ringers infusion 9 mL/hr, Intravenous, Once As Needed, Start prior to surgery, Starting on Wed07/03/25 at 1145, For 12 hours Restarted 07/03/2025 2:17 PM EDT New Bag 07/03/2025 11:45 AM EDT 9 mL/hr 9 mL/hr lactated ringers infusion 75 mL/hr, Intravenous, Continuous, Starting on 07/14/25 at 1415, For 12 hours New Bag 07/14/2025 2:52 PM EDT 75 mL/hr 75 mL/hr lamoTRIgine (LaMICtal) tablet 100 mg 100 mg, Oral, Daily, First dose on Wed06/26/25 at 0900, Caution: Look alike/sound alike drug alert Given 08/02/2025 8:25 AM EST 100 mg Given 08/01/2025 8:23 AM EST 100 mg Given 07/31/2025 9:17 AM EST 100 mg lamoTRIgine (LaMICtal) tablet 250 mg 250 mg, Oral, Nightly, First dose on Wed06/26/25 at 0200, Caution: Look alike/sound alike drug alert Given 08/01/2025 9:32 PM EST 250 mg Given 07/31/2025 9:51 PM EST 250 mg Given 07/30/2025 9:04 PM EST 250 mg LORazepam (ATIVAN) injection 1 mg 1 mg, Intramuscular, Once, On Wed07/22/25 at 1115, For 1 dose, Dilute 1:1 with normal saline. (MAGGI} Caution: Look alike/sound alike. Given 07/22/2025 10:32 AM EST 1 mg Righ t Deltoid LORazepam (ATIVAN) injection 1 mg 1 mg, Intramuscular, Every 4 Hours PRN, Anxiety, Agitation, Starting on Wed07/22/25 at 1256, For 5 days, Dilute 1:1 with normal saline. (MAGGI} Caution: Look alike/sound alike. Given 07/24/2025 1:44 PM EST 1 mg Left Deltoid Given 07/23/2025 11:30 PM EST 1 mg L eft Ventrogluteal Given 07/23/2025 1:45 PM EST 1 mg Ri ght Upper Outer Quadrant LORazepam (ATIVAN) injection 2 mg 2 mg, Intravenous, Every 5 Minutes PRN, Seizures, Starting on Wed07/03/25 at 1707, For 5 days, Dilute 1:1 with normal saline. (MAGGI} Caution: Look alike/sound alike. Given 07/03/2025 5:56 PM EDT 2 mg magnesium sulfate 2g/50 mL (PREMIX) infusion 2 g, Intravenous, Once, On Wed07/12/25 at 0915, For 1 dose New Bag 07/12/2025 9:54 AM EDT 2 g magnesium sulfate 4g/100mL (PREMIX) infusion 4 g, Intravenous, Administer over 4 Hours, Once, On Wed06/26/25 at 1200, For 1 dose New Bag 06/26/2025 12:19 PM EDT 4 g magnesium sulfate 4g/100mL (PREMIX) infusion 4 g, Intravenous, Administer over 4 Hours, Once, On Wed07/17/25 at 0830, For 1 dose New Bag 07/17/2025 9:00 AM EST 4 g magnesium sulfate 4g/100mL (PREMIX) infusion 4 g, Intravenous, Administer over 4 Hours, Once, On Maggie 07/19/25 at 1700, For 1 dose New Bag 07/19/2025 4:19 PM EST 4 g meropenem (MERREM) 1,000 mg in sodium chloride 0.9 % 100 mL MBP 1,000 mg, Intravenous, Administer over 30 Minutes, Once, On Wed06/25/25 at 2128, For 1 dose, Indications: Bone and/or Joint Infection, EmpiricIndications:Bone and/or Joint Infection,Empiric New Bag 06/25/2025 9:42 PM EDT 1,000 mg meropenem (MERREM) 500 mg in sodium chloride 0.9 % 100 mL MBP 500 mg, Intravenous, Administer over 30 Minutes, Once, On Wed06/26/25 at 0945, For 1 dose New Bag 06/26/2025 10:17 AM EDT 500 mg meropenem (MERREM) 500 mg in sodium chloride 0.9 % 100 mL MBP 500 mg, Intravenous, Administer over 3 Hours, Every 6 Hours, First dose on Wed06/26/25 at 1600, For 237 doses, Indications: Skin and Soft Tissue Infection, UTI; Hx ESBLIndications:Skin and Soft Tissue Infection,UTI; Hx ESBL 07/24/2025 1:43 AM EST 500 m g 07/23/2025 9:31 PM EST 500 mg 07/23/2025 10:20 AM EST 500 mg methenamine (HIPREX) tablet 1 g 1 g, Oral, 2 Times Daily With Meals, First dose on Wed06/26/25 at 0800 Given 08/02/2025 8:25 AM EST 1 g Given 08/01/2025 5:41 PM EST 1 g Given 08/01/2025 8:23 AM EST 1 g micafungin sodium (MYCAMINE) 100 mg in sodium chloride 0.9 % 100 mL MBP 100 mg, Intravenous, Once, On Wed06/26/25 at 0930, For 1 dose, Reason for Therapy: Empiric invasive candidiasis / empiric x 1 while cultures pending, Indications: empiric treatment x 1 while cultures pendingIndications:empiric treatment x 1 while cultures pending 06/26/2025 8:50 AM EDT 100 mg micafungin sodium (MYCAMINE) 100 mg in sodium chloride 0.9 % 100 mL MBP 100 mg, Intravenous, Once, On 07/14/25 at 1000, For 1 dose, Reason for Therapy: Other, Indication for Therapy: empiric while cultures pending, Indications: empiricIndications:empiric New 07/14/2025 12:20 PM EDT 100 mg micafungin sodium (MYCAMINE) 100 mg in sodium chloride 0.9 % 100 mL MBP 100 mg, Intravenous, Once, On Wed07/16/25 at 0900, For 1 dose, Reason for Therapy: Other, Indication for Therapy: empiric antifungal with cultures pending, Indications: empiric antifungalIndications:empiric antifungal 07/16/2025 9:20 AM EST 100 mg micafungin sodium (MYCAMINE) 100 mg in sodium chloride 0.9 % 100 mL MBP 100 mg, Intravenous, Every 24 Hours, First dose on Wed07/17/25 at 0900, For 7 days, Reason for Therapy: Other, Indication for Therapy: empiric until culture data back, Indications: empiric as aboveIndications:empiric as above New Bag 07/21/2025 10:39 AM EST 100 mg New Bag 07/20/2025 8:59 AM EST 100 mg New Bag 07/19/2025 2:42 PM EST 100 mg midazolam (VERSED) 2 MG/2ML injection - ADS Override Pull Starting on Wed07/03/25 at 1646, For 1 dose, Created by cabinet override If given IV Push: give slowly over at least 2 minutes, unless provider at bedside for induction. (MAGGI) Given 07/03/2025 4:54 PM EDT 2 m g mirtazapine (REMERON) tablet 15 mg 15 mg, Oral, Nightly, First dose on 07/08/25 at 2100 Given 07/22/2025 9:42 PM EST 15 mg Given 07/21/2025 8:24 PM EST 15 mg Given 07/20/2025 9:39 PM EST 15 mg morphine injection 1 mg 1 mg, Intravenous, Once, On Wed06/27/25 at 0345, For 1 dose, Based on patient request - if ordered for moderate or severe pain, provider allows for administration of a medication prescribed for a lower pain scale. If given for pain, use the following pain scale: Mild Pain = Pain Score of 1-3, CPOT 1-2 Moderate Pain = Pain Score of 4-6, CPOT 3-4 Severe Pain = Pain Score of 7-10, CPOT 5-8 Given 06/27/2025 3:00 AM EDT 1 mg morphine injection 1 mg 1 mg, Intravenous, Once, On Maggie 06/28/25 at 0245, For 1 dose, Based on patient request - if ordered for moderate or severe pain, provider allows for administration of a medication prescribed for a lower pain scale. If given for pain, use the following pain scale: Mild Pain = Pain Score of 1-3, CPOT 1-2 Moderate Pain = Pain Score of 4-6, CPOT 3-4 Severe Pain = Pain Score of 7-10, CPOT 5-8 Given 06/28/2025 1:58 AM EDT 1 mg morphine injection 2 mg 2 mg, Intravenous, Every 4 Hours PRN, Severe Pain, Starting on 06/25/25 at 2309, For 5 days, Based on patient request [...] Pain Score of 7-10, CPOT 5-8 Given 06/26/2025 5:39 AM EDT 2 mg multivitamin with minerals 1 tablet 1 tablet, Oral, Daily, First dose on Wed06/26/25 at 0900, ([facility]) Given 08/02/2025 8:24 AM EST 1 tablet Given 08/01/2025 8:24 AM EST 1 tablet Given 07/31/2025 9:18 AM EST 1 tablet OLANZapine (zyPREXA) tablet 10 mg 10 mg, Oral, 2 Times Daily, First dose on Wed07/23/25 at 2100, Caution: Look alike/sound alike drug alert Given 07/23/2025 9:16 PM EST 10 mg OLANZapine zydis (zyPREXA) disintegrating tablet 10 mg 10 mg, Oral, Nightly, First dose (after last modification) on 07/21/25 at 2100, Caution: Look alike/sound alike drug alert Given 07/21/2025 8:24 PM EST 10 mg OLANZapine zydis (zyPREXA) disintegrating tablet 10 mg 10 mg, Oral, Nightly, First dose on 07/22/25 at 2100, Caution: Look alike/sound alike drug alert Given 07/23/2025 9:17 PM EST 10 mg Given 07/22/2025 9:43 PM EST 10 mg OLANZapine zydis (zyPREXA) disintegrating tablet 5 mg 5 mg, Oral, Nightly, First dose on 07/09/25 at 2100, Caution: Look alike/sound alike drug alert Given 07/13/2025 7:59 PM EDT 5 mg Given 07/12/2025 9:09 PM EDT 5 mg Given 07/11/2025 10:09 PM EDT 5 mg OLANZapine zydis (zyPREXA) disintegrating tablet 5 mg 5 mg, Oral, Once, On Maggie 07/19/25 at 1345, For 1 dose, Caution: Look alike/sound alike drug alert Given 07/19/2025 1:04 PM EST 5 mg OLANZapine zydis (zyPREXA) disintegrating tablet 7.5 mg 7.5 mg, Oral, Nightly, First dose (after last modification) on 07/14/25 at 2100, Caution: Look alike/sound alike drug alert Given 07/20/2025 9:41 PM EST 7 .5 mg Given 07/19/2025 10:10 PM EST 7.5 mg Given 07/18/2025 10:13 PM EST 7.5 mg ondansetron (ZOFRAN) injection 4 mg 4 mg, Intravenous, Every 6 Hours PRN, Nausea, Vomiting, Starting on Wed06/25/25 at 2309, If BOTH ondansetron (ZOFRAN) and promethazine (PHENERGAN) are ordered use ondansetron first and THEN promethazine IF ondansetron is ineffective. Given 07/16/2025 9:23 AM EST 4 mg Given 07/08/2025 1:43 PM EDT 4 mg Given 07/06/2025 9:41 AM EDT 4 mg oxyCODONE (ROXICODONE) immediate release tablet 10 mg 10 mg, Oral, Every 4 Hours PRN, Severe Pain, Starting on Wed07/06/25 at 0824, For 7 days, Based on patient request - if ordered for moderate or severe pain, provider allows for administration of a medication prescribed for a lower pain scale. If given for pain, use the following pain scale: Mild Pain = Pain Score of 1-3, CPOT 1-2 Moderate Pain = Pain Score of 4-6, CPOT 3-4 Severe Pain = Pain Score of 7-10, CPOT 5-8 Given 07/12/2025 6:40 AM EDT 10 mg Given 07/12/2025 2:21 AM EDT 10 mg Given 07/11/2025 10:09 PM EDT 10 mg oxyCODONE (ROXICODONE) immediate release tablet 10 mg 10 mg, Oral, Every 6 Hours, First dose (after last modification) on Wed07/24/25 at 1800, For 35 doses, Based on patient request - if ordered for moderate or severe pain, provider allows for administration of a medication prescribed for a lower pain scale. If given for pain, use the following pain scale: Mild Pain = Pain Score of 1-3, CPOT 1-2 Moderate Pain = Pain Score of 4-6, CPOT 3-4 Severe Pain = Pain Score of 7-10, CPOT 5-8 Given 07/27/2025 12:51 PM EST 10 mg Given 07/27/2025 5:14 AM EST 10 mg Given 07/27/2025 12:19 AM EST 10 mg oxyCODONE (ROXICODONE) immediate release tablet 10 mg 10 mg, Oral, Every 4 Hours PRN, Severe Pain, Starting on Wed07/24/25 at 1446, For 185 hours, Based on patient request - if ordered for moderate or severe pain, provider allows for administration of a medication prescribed for a lower pain scale. If given for pain, use the following pain scale: Mild Pain = Pain Score of 1-3, CPOT 1-2 Moderate Pain = Pain Score of 4-6, CPOT 3-4 Severe Pain = Pain Score of 7-10, CPOT 5-8 Given 07/28/2025 11:06 AM EST 10 mg Given 07/27/2025 9:56 AM EST 10 mg Given 07/25/2025 8:57 PM EST 10 mg oxyCODONE (ROXICODONE) immediate release tablet 10 mg 10 mg, Oral, Every 4 Hours, First dose (after last modification) on Wed07/27/25 at 1700, For 289 hours, Based on patient request - if ordered for moderate or severe pain, provider allows for administration of a medication prescribed for a lower pain scale. If given for pain, use the following pain scale: Mild Pain = Pain Score of 1-3, CPOT 1-2 Moderate Pain = Pain Score of 4-6, CPOT 3-4 Severe Pain = Pain Score of 7-10, CPOT 5-8 Given 08/02/2025 1:51 PM EST 10 mg Given 08/02/2025 8:24 AM EST 10 mg Given 08/02/2025 12:31 AM EST 10 mg oxyCODONE (ROXICODONE) immediate release tablet 15 mg 15 mg, Oral, Every 6 Hours, First dose on Wed07/12/25 at 1200, For 339 hours, Based on patient request - if ordered for moderate or severe pain, provider allows for administration of a medication prescribed for a lower pain scale. (MAGGI) If given for pain, use the following pain scale: Mild Pain = Pain Score of 1-3, CPOT 1-2 Moderate Pain = Pain Score of 4-6, CPOT 3-4 Severe Pain = Pain Score of 7-10, CPOT 5-8 Given 07/23/2025 11:50 PM EST 15 mg Given 07/23/2025 5:37 PM EST 15 mg Given 07/23/2025 6:00 AM EST 15 mg oxyCODONE (ROXICODONE) immediate release tablet 15 mg 15 mg, Oral, Every 4 Hours PRN, Severe Pain, Starting on Maggie 07/12/25 at 0837, For 473 hours, Based on patient request - if ordered for moderate or severe pain, provider allows for administration of a medication prescribed for a lower pain scale. (MAGGI) If given for pain, use the following pain scale: Mild Pain = Pain Score of 1-3, CPOT 1-2 Moderate Pain = Pain Score of 4-6, CPOT 3-4 Severe Pain = Pain Score of 7-10, CPOT 5-8 Given 07/23/2025 9:16 PM EST 15 mg Given 07/23/2025 1:57 AM EST 15 mg Given 07/22/2025 10:13 PM EST 15 mg oxyCODONE (ROXICODONE) immediate release tablet 15 mg 15 mg, Oral, Every 4 Hours PRN, Severe Pain, Starting on 07/30/25 at 0848, For 207 hours, Based on patient request - if ordered for moderate or severe pain, provider allows for administration of a medication prescribed for a lower pain scale. (MAGGI) If given for pain, use the following pain scale: Mild Pain = Pain Score of 1-3, CPOT 1-2 Moderate Pain = Pain Score of 4-6, CPOT 3-4 Severe Pain = Pain Score of 7-10, CPOT 5-8 Given 08/02/2025 10:45 AM EST 15 mg oxyCODONE-acetaminophen (PERCOCET) 10-325 MG per tablet 1 tablet 1 tablet, Oral, Every 6 Hours PRN, Moderate Pain, Starting on 07/01/25 at 1008, For 5 days, Based on patient request - if ordered for moderate or severe pain, provider allows for administration of a medication prescribed for a lower pain scale. [MAGGI] Do not exceed 4 grams of acetaminophen in a 24 hr period. Max dose of 2gm for AST/ALT greater than 120 units/L If given for pain, use the following pain scale: Mild Pain = Pain Score of 1-3, CPOT 1-2 Moderate Pain = Pain Score of 4-6, CPOT 3-4 Severe Pain = Pain Score of 7-10, CPOT 5-8 Given 07/03/2025 8:32 AM EDT 1 tablet Given 07/03/2025 2:03 AM EDT 1 tablet Given 07/02/2025 7:30 PM EDT 1 tablet oxyCODONE-acetaminophen (PERCOCET) 10-325 MG per tablet 1.5 tablet 1.5 tablet, Oral, Every 6 Hours PRN, Moderate Pain, Starting on Wed07/04/25 at 1332, For 5 days, Based on patient request - if ordered for moderate or severe pain, provider allows for administration of a medication prescribed for a lower pain scale. [MAGGI] Do not exceed 4 grams of acetaminophen in a 24 hr period. Max dose of 2gm for AST/ALT greater than 120 units/L If given for pain, use the following pain scale: Mild Pain = Pain Score of 1-3, CPOT 1-2 Moderate Pain = Pain Score of 4-6, CPOT 3-4 Severe Pain = Pain Score of 7-10, CPOT 5-8 Given 07/05/2025 3:35 PM EDT 1.5 tablets Given 07/05/2025 9:04 AM EDT 1.5 tablets Given 07/04/2025 2:45 PM EDT 1.5 tablets oxyCODONE-acetaminophen (PERCOCET) 5-325 MG per tablet 1 tablet 1 tablet, Oral, Every 6 Hours PRN, Moderate Pain, Starting on Wed06/26/25 at 1214, For 5 days, Based on patient request - if ordered for moderate or severe pain, provider allows for administration of a medication prescribed for a lower pain scale. [MAGGI] Do not exceed 4 grams of acetaminophen in a 24 hr period. Max dose of 2gm for AST/ALT greater than 120 units/L If given for pain, use the following pain scale: Mild Pain = Pain Score of 1-3, CPOT 1-2 Moderate Pain = Pain Score of 4-6, CPOT 3-4 Severe Pain = Pain Score of 7-10, CPOT 5-8 Given 06/28/2025 12:28 PM EDT 1 tablet Given 06/28/2025 5:42 AM EDT 1 tablet Given 06/27/2025 11:26 PM EDT 1 tablet oxyCODONE-acetaminophen (PERCOCET) 7.5-325 MG per tablet 1 tablet 1 tablet, Oral, Every 6 Hours PRN, Moderate Pain, Starting on Maggie 06/28/25 at 1525, For 2 days 19 hours, Based on patient request - if ordered for moderate or severe pain, provider allows for administration of a medication prescribed for a lower pain scale. [MAGGI] Do not exceed 4 grams of acetaminophen in a 24 hr period. Max dose of 2gm for AST/ALT greater than 120 units/L If given for pain, use the following pain scale: Mild Pain = Pain Score of 1-3, CPOT 1-2 Moderate Pain = Pain Score of 4-6, CPOT 3-4 Severe Pain = Pain Score of 7-10, CPOT 5-8 Given 07/01/2025 9:55 AM EDT 1 tablet Given 07/01/2025 3:37 AM EDT 1 tablet Given 06/30/2025 10:20 AM EDT 1 tablet piperacillin-tazobactam (ZOSYN) 4.5 g IVPB in 100 mL NS MBP (CD) 4.5 g, Intravenous, Administer over 30 Minutes, Once, On Wed06/26/25 at 0600, For 1 dose, Indications: EmpiricIndications:Empiric New Bag 06/26/2025 5:30 AM EDT 4.5 g polyethylene glycol (MIRALAX) packet 17 g 17 g, Oral, Daily PRN, Constipation, Use if senna-docusate is ineffective, Starting on 06/25/25 at 2309, Use if no bowel movement after 12 hours. Mix in 6-8 ounces of water. Use 4-8 ounces of water, tea, or juice for each 17 gram dose. sacubitril-valsartan (ENTRESTO) 24-26 MG tablet 1 tablet 1 tablet, Oral, 2 Times Daily, First dose on Wed06/26/25 at 0900, Is this new therapy for the patient? No, On hold since Wed07/12/2025 at 0824 until manually unheld Given 07/11/2025 10:09 PM EDT 1 tablet Given 07/11/2025 8:21 AM EDT 1 tablet Given 07/10/2025 11:15 PM EDT 1 tablet sennosides-docusate (PERICOLACE) 8.6-50 MG per tablet 2 tablet 2 tablet, Oral, 2 Times Daily PRN, Constipation, Starting on Wed06/25/25 at 2309, Start bowel management regimen if patient has not had a bowel movement after 12 hours. Given 07/28/2025 8:08 AM EST 2 tablets Given 07/27/2025 12:52 PM EST 2 tablets sepsis fluid NS 0.9 % bolus 2,838 mL 2,838 mL (30 mL/kg 94.6 kg Adjusted weight), Intravenous, at 2,838 mL/hr, Administer over 1 Hours, Once, On Wed06/25/25 at 2319, For 1 dose, Bolus Volume Based on Adjusted [place] Body Weight Due to BMI 30 or Higher Body mass index is 35.94 kg/m . Volume of This Order May Need to Be Adjusted to Account For Fluids Already Given. Calculated Total Bolus Volume - 2,839.2 mL New Bag 06/26/2025 12:59 AM EDT 2,838 mL 2838 mL/hr sodium chloride 0.9 % bolus 500 mL 500 mL, Intravenous, at 1,000 mL/hr, Administer over 0.5 Hours, Once, On Wed06/25/25 at 2003, For 1 dose New Bag 06/25/2025 8:07 PM EDT 500 mL 1000 mL/hr sodium chloride 0.9 % flush 10 mL 10 mL, Intravenous, Every 12 Hours Scheduled, First dose on Wed06/25/25 at 2326 Given 07/25/2025 8:55 AM EST 10 mL Given 07/24/2025 10:00 PM EST 10 mL Given 07/23/2025 9:32 PM EST 10 mL sodium chloride 0.9 % flush 10 mL 10 mL, Intravenous, Every 12 Hours Scheduled, First dose on Wed06/28/25 at 1300 Given 07/19/2025 11:11 AM EST 10 mL Given 07/18/2025 10:10 PM EST 10 mL Given 07/18/2025 8:57 AM EST 10 mL sodium chloride 0.9 % infusion 75 mL/hr, Intravenous, Continuous, Starting on 06/25/25 at 2319, For 24 hours New Bag 06/26/2025 8:43 AM EDT 75 mL/hr 75 mL/hr Currently Infusing 06/26/2025 6:26 AM EDT 75 mL/hr 75 mL /hr New Bag 06/26/2025 2:25 AM EDT 75 mL/hr 75 mL/hr sodium zirconium cyclosilicate (LOKELMA) packet 10 g 10 g, Oral, Every 4 Hours - RT, First dose on Wed07/06/25 at 1530, For 2 doses, Empty entire contents of the packet(s) into a glass with at least 3 tablespoons (45 mL) of water. Stir well and drink immediately; if powder remains in the glass, add water, stir and drink immediately; repeat until no powder remains. Administer other oral medications at least 2 hours before or 2 hours after dose. Given 07/06/2025 8:01 PM EDT 10 g Given 07/06/2025 2:53 PM EDT 10 g sodium zirconium cyclosilicate (LOKELMA) packet 10 g 10 g, Oral, Once, On Wed07/11/25 at 0630, For 1 dose, Empty entire contents of the packet(s) into a glass with at least 3 tablespoons (45 mL) of water. Stir well and drink immediately; if powder remains in the glass, add water, stir and drink immediately; repeat until no powder remains. Administer other oral medications at least 2 hours before or 2 hours after dose., Indications: HyperkalemiaIndications:Hyperkalemia Given 07/11/2025 6:18 AM EDT 10 g sodium zirconium cyclosilicate (LOKELMA) packet 10 g 10 g, Oral, Once, On Wed07/11/25 at 1330, For 1 dose, Empty entire contents of the packet(s) into a glass with at least 3 tablespoons (45 mL) of water. Stir well and drink immediately; if powder remains in the glass, add water, stir and drink immediately; repeat until no powder remains. Administer other oral medications at least 2 hours before or 2 hours after dose., Indications: HyperkalemiaIndications:Hyperkalemia Given 07/11/2025 12:52 PM EDT 10 g sodium zirconium cyclosilicate (LOKELMA) packet 10 g 10 g, Oral, Once, On Maggie 07/12/25 at 0645, For 1 dose, Empty entire contents of the packet(s) into a glass with at least 3 tablespoons (45 mL) of water. Stir well and drink immediately; if powder remains in the glass, add water, stir and drink immediately; repeat until no powder remains. Administer other oral medications at least 2 hours before or 2 hours after dose., Indications: HyperkalemiaIndications:Hyperkalemia Given 07/12/2025 6:37 AM EDT 10 g sodium zirconium cyclosilicate (LOKELMA) packet 10 g 10 g, Oral, 3 Times Daily, First dose on [facility] 07/12/25 at 0915, Empty entire contents of the packet(s) into a glass with at least 3 tablespoons (45 mL) of water. Stir well and drink immediately; if powder remains in the glass, add water, stir and drink immediately; repeat until no powder remains. Administer other oral medications at least 2 hours before or 2 hours after dose. Given 07/13/2025 9:18 PM EDT 10 g Given 07/13/2025 8:42 AM EDT 10 g Given 07/12/2025 9:08 PM EDT 10 g sterile water (preservative free) injection Starting on 07/22/25 at 0525, For 1 dose, Created by cabinet override Given 07/22/2025 5:48 AM EST 10 mL thiamine (VITAMIN B-1) tablet 100 mg 100 mg, Oral, Daily, First dose on [place] 07/26/25 at 1500 Given 08/02/2025 8:23 AM EST 100 mg Given 08/01/2025 8:22 AM EST 100 mg Given 07/31/2025 9:18 AM EST 100 mg vancomycin (VANCOCIN) 1,000 mg in sodium chloride 0.9 % 250 mL IVPB-VTB 1,000 mg, Intravenous, at 250 mL/hr, Administer over 60 Minutes, Every 12 Hours, First dose (after last modification) on [facility] 06/28/25 at 0900, For 23 doses, Indications: BacteremiaIndications:Bacteremia New Bag 07/02/2025 9:14 PM EDT 1,000 mg 250 mL/hr New Bag 07/02/2025 8:27 AM EDT 1,000 mg 250 mL/hr New Bag 07/01/2025 9:43 PM EDT 1,000 mg 250 mL/hr vancomycin (VANCOCIN) 1,000 mg in sodium chloride 0.9 % 250 mL IVPB-VTB 1,000 mg, Intravenous, at 250 mL/hr, Administer over 60 Minutes, Every 12 Hours, First dose (after last modification) on Wed07/03/25 at 0900, For 18 doses, Indications: BacteremiaIndications:Bacteremia New Bag 07/08/2025 10:37 PM EDT 1,000 m g 250 mL/hr New Bag 07/08/2025 10:08 AM EDT 1,000 mg 250 mL/hr New Bag 07/07/2025 8:49 PM EDT 1,000 mg 250 mL/hr vancomycin (VANCOCIN) capsule 125 mg 125 mg, Oral, 4 Times Daily, First dose on Wed06/26/25 at 1200, For 14 days, Do not crush or chew the capsules or tablets. Contact Pharmacy if needed., Indications: Clostridioides Difficile InfectionIndications:Clostridioides Difficile Infection Given 07/09/2025 6:34 PM EDT 125 mg Given 07/09/2025 12:37 PM EDT 125 mg Given 07/09/2025 10:07 AM EDT 125 mg vancomycin (VANCOCIN) capsule 125 mg 125 mg, Oral, 3 Times Daily, First dose on Wed07/10/25 at 1600, For 7 days, Do not crush or chew the capsules or tablets. Contact Pharmacy if needed., Indications: Clostridioides Difficile InfectionIndications:Clostridioides Difficile Infection Given 07/17/2025 9:01 AM EST 125 mg Given 07/16/2025 9:31 PM EST 125 mg Given 07/16/2025 4:26 PM EST 125 mg vancomycin (VANCOCIN) capsule 125 mg 125 mg, Oral, 2 Times Daily, First dose on Wed07/17/25 at 2100, For 7 days, Do not crush or chew the capsules or tablets. Contact Pharmacy if needed., Indications: Clostridioides Difficile InfectionIndications:Clostridioides Difficile Infection Given 07/23/2025 9:17 PM EST 125 mg Given 07/23/2025 9:44 AM EST 125 mg Given 07/22/2025 9:42 PM EST 125 mg vancomycin (VANCOCIN) capsule 125 mg 125 mg, Oral, Daily, First dose on Wed07/25/25 at 0900, For 7 days, Do not crush or chew the capsules or tablets. Contact Pharmacy if needed., Indications: Clostridioides Difficile InfectionIndications:Clostridioides Difficile Infection Given 07/31/2025 9:18 AM EST 125 mg Given 07/30/2025 9:32 AM EST 125 mg Given 07/29/2025 9:44 AM EST 125 mg vancomycin (VANCOCIN) capsule 125 mg 125 mg, Oral, Weekly, First dose on Wed08/01/25 at 0900, For 7 doses, Do not crush or chew the capsules or tablets. Contact Pharmacy if needed., Indications: Clostridioides Difficile InfectionIndications:Clostridioide s Difficile Infection Given 08/01/2025 8:27 AM EST 125 mg vancomycin 2500 mg/500 mL 0.9% NS IVPB ([facility]) 2,500 mg, Intravenous, Administer over 150 Minutes, Once, On Wed06/27/25 at 0945, For 1 dose, Indications: BacteremiaIndications:Bacteremia New Bag 06/27/2025 9:20 AM EDT 2,500 mg Vancomycin HCl 1,250 mg in sodium chloride 0.9 % 250 mL VTB 1,250 mg, Intravenous, at 200 mL/hr, Administer over 75 Minutes, Every 12 Hours, First dose (after last modification) on Wed06/27/25 at 2100, For 7 days, Indications: BacteremiaIndications:Bacteremia New Bag 06/27/2025 9:50 PM EDT 1,250 mg 200 mL/hr Vancomycin HCl 1,250 mg in sodium chloride 0.9 % 250 mL VTB 1,250 mg, Intravenous, at 200 mL/hr, Administer over 75 Minutes, Every 24 Hours, First dose on Wed07/11/25 at 1200, For 35 doses, Indications: BacteremiaIndications:Bacteremia New Bag 07/21/2025 11:24 AM EST 1,250 mg 200 mL/hr New Bag 07/20/2025 11:21 AM EST 1,250 mg 200 mL/hr New Bag 07/19/2025 4:05 PM EST 1,250 mg 200 mL/hr ziprasidone (GEODON) capsule 20 mg 20 mg, Oral, Nightly, First dose on Wed07/24/25 at 2100, May cause prolongation of QT interval. Take with food. Group 2 ([place]) Hazardous Drug - Reproductive Risk Only - See Handling Guide Given 08/01/2025 9:36 PM EST 20 mg Given 07/31/2025 9:51 PM EST 20 mg Given 07/30/2025 9:05 PM EST 20 mg ziprasidone (GEODON) injection 10 mg 10 mg, Intramuscular, Every 6 Hours PRN, Agitation, Starting on 07/14/25 at 1325, Reconstitute 20-mg vial with 1.2 mL of sterile water for injection. Do not use any other solvent to reconstitute. Shake vigorously until all drug is dissolved. Reconstituted solution concentration is 20 mg/mL. DO NOT administer IV. Max dose 40 mg/day. Group 2 ([place]) Hazardous Drug - Reproductive Risk Only - See Handling Guide Given 07/24/2025 10:03 AM EST 10 mg Le ft Deltoid Given 07/22/2025 5:48 AM EST 10 mg Le ft Deltoid Given 07/21/2025 1:08 PM EST 10 mg Le ft Deltoid ziprasidone (GEODON) injection 10 mg 10 mg, Intramuscular, Nightly, First dose on Wed07/24/25 at 2100, Reconstitute 20-mg vial with 1.2 mL of sterile water for injection. Do not use any other solvent to reconstitute. Shake vigorously until all drug is dissolved. Reconstituted solution concentration is 20 mg/mL. DO NOT administer IV. Max dose 40 mg/day. Group 2 ([place]) Hazardous Drug - Reproductive Risk Only - See Handling Guide Given 07/24/2025 8:10 PM EST 10 mg Rig ht Deltoid documented in this encounter Active and Recently Administered Medications Times are shown in EST. Scheduled Medication Order 07/31/2025 08/01/2025 08/02/2025 acetaminophen (TYLENOL) tablet 1,000 mg 1,000 mg, Oral, Every 8 Hours, First dose on Wed07/06/25 at 0915, If given for fever, use fever parameter: [...] 7-10, CPOT 5-8 0030 (Given - Provider: Lou Logan RN)0918 (Given - Provider: Carolynn Leyva RN)1709 (Given - Provider: Carolynn Leyva RN) 0139 (Given - Provider: Lou Logan RN)0822 (Given - Provider: Carolynn Leyva RN)1741 (Given - Provider: Carolynn Leyva RN) 003 (Given - Provider: Juliet Silverio RN)0823 (Given - Provider: Sim Dale, JESSEE) apixaban (ELIQUIS) tablet 5 mg 5 mg, Oral, 2 Times Daily, First dose on Wed06/26/25 at 0900, Tablet may be crushed and suspended in 60 mL of water or D5W and immediately delivered via NG tube., Indications: Other - full anticoagulation 0917 (Given - Provider: Carolynn Leyva RN)215 (Given - Provider: Lou Logan RN) 08 (Given - Provider: Carolynn Leyva RN)213 (Given - Provider: Juliet Silverio RN) 08 (Given - Provider: Sim Dale, JESSEE) ascorbic acid (VITAMIN C) tablet 500 mg 500 mg, Oral, Daily, First dose on Wed06/26/25 at 0900 0918 (Given - Provider: Carolynn Leyva RN) 0823 (Given - Provider: Carolynn Leyva RN) 0825 (Given - Provider: Sim Dale, JESSEE) baclofen (LIORESAL) tablet 5 mg 5 mg, Oral, Every 12 Hours Scheduled, First dose (after last modification) on Wed07/24/25 at 2100, Take with food if GI upset occurs. 0917 (Given - Provider: Carolynn Leyva RN)215 (Given - Provider: Lou Logan RN) 0824 (Given - Provider: Carolynn Leyva RN)2135 (Given - Provider: Juliet Silverio RN) 0824 (Given - Provider: Sim Dale, RN) carvedilol (COREG) tablet 3.125 mg 3.125 mg, Oral, 2 Times Daily With Meals, First dose on Wed06/26/25 at 0800, Hold for SBP less than 100, DBP less than 60, or heart rate less than 50. If a dose is held, please contact the provider. Give with food. 0917 (Given - Provider: Carolynn Leyva RN)1709 (Given - Provider: Carolynn Leyva RN) 0822 (Given - Provider: Carolynn Leyva RN)1741 (Given - Provider: Carolynn Leyva, JESSEE) 0825 (Given - Provider: Sim Dale, RN) clopidogrel (PLAVIX) tablet 75 mg 75 mg, Oral, Daily, First dose on Wed06/26/25 at 0900 0914 (Given - Provider: Carolynn Leyva RN) 0823 (Given - Provider: Carolynn Leyva RN) 0823 (Given - Provider: Sim Dale, RN) famotidine (PEPCID) tablet 20 mg 20 mg, Oral, 2 Times Daily Before Meals, First dose on Wed06/26/25 at 0930 0612 (Given - Provider: Lou Logan RN)0638 (Canceled Entry - Provider: Lou Logan RN)1709 (Given - Provider: Carolynn Leyva RN) 0602 (Given - Provider: Lou Logan RN)0635 (Canceled Entry - Provider: Lou Logan RN)1742 (Given - Provider: Carolynn Leyva RN) 0827 (Not Given - Provider: Sim Dale, RN - Reason: Patient/family refused) finasteride (PROSCAR) tablet 5 mg 5 mg, Oral, Daily, First dose on Wed06/26/25 at 0900, Group 2 ([place]) Hazardous Drug - Reproductive Risk Only - See Handling Guide 0917 (Given - Provider: Carolynn Leyva RN) 0822 (Given - Provider: Carolynn Leyva RN) 0823 (Given - Provider: Sim Dale, RN) folic acid (FOLVITE) tablet 1 mg 1 mg, Oral, Daily, First dose on Wed06/26/25 at 0900 0917 (Given - Provider: Carolynn Leyva RN) 0823 (Given - Provider: Carolynn Leyva RN) 0823 (Given - Provider: Sim Dale, RN) gabapentin (NEURONTIN) capsule 400 mg 400 mg, Oral, Every 8 Hours Scheduled, First dose (after last modification) on Wed07/24/25 at 2200, (MAGGI) 0612 (Given - Provider: Lou Logan RN)1435 (Given - Provider: Carolynn Leyva, JESSEE)2152 (Given - Provider: Lou Logan, RN) 0602 (Given - Provider: Lou Logan, RN)1252 (Given - Provider: Carolynn Leyva RN)1315 (Canceled Entry - Provider: Carolynn Leyva RN)2135 (Given - Provider: Juliet Silverio RN) 0529 (Not Given - Provider: Juliet Silverio RN - Reason: Patient/family refused)1351 (Given - Provider: Sim Dale, JESSEE) insulin glargine (LANTUS, SEMGLEE) injection 22 Units 22 Units, Subcutaneous, Nightly, First dose (after last modification) on Wed07/26/25 at 2100, (BK) 2152 (Given - Provider: Lou Logan, JESSEE) 2135 (Given - Provider: Juliet Silverio, JESSEE) Insulin Lispro (humaLOG) injection 2-7 Units 2-7 Units, Subcutaneous, 3 Times Daily With Meals, First dose (after last modification) on Wed07/27/25 at 0900, Correction Insulin - Low Dose - Total [...] mg/dL - 7 units & Call Provider ([facility]) Caution: Look alike/sound alike drug alert([facility]) 0918 (Not Given - Provider: Carolynn Portilo, RN - Reason: Order parameters not met)1217 (Not Given - Provider: Carolynn Leyva RN - Reason: Order parameters not met)1709 (Given - Provider: Carolynn Leyva RN) 0756 (Not Given - Provider: Carolynn Leyva RN - Reason: Order parameters not met)1219 (Not Given - Provider: Carolynn Leyva RN - Reason: Order parameters not met)1742 (Given - Provider: Carolynn Leyva RN) 0810 (Not Given - Provider: Sim Dale RN - Reason: Order parameters not met)1200 (Not Given - Provider: Sim Dale RN - Reason: Patient/family refused) lamoTRIgine (LaMICtal) tablet 100 mg 100 mg, Oral, Daily, First dose on Wed06/26/25 at 0900, Caution: Look alike/sound alike drug alert 0917 (Given - Provider: Carolynn Leyva RN) 0823 (Given - Provider: Carolynn Leyva RN) 0825 (Given - Provider: Sim Dale, JESSEE) lamoTRIgine (LaMICtal) tablet 250 mg 250 mg, Oral, Nightly, First dose on Wed06/26/25 at 0200, Caution: Look alike/sound alike drug alert 2151 (Given - Provider: Lou Logan RN) 2132 (Given - Provider: Juliet Silverio RN) methenamine (HIPREX) tablet 1 g 1 g, Oral, 2 Times Daily With Meals, First dose on Wed06/26/25 at 0800 0918 (Given - Provider: Carolynn Leyva RN)1709 (Given - Provider: Carolynn Leyva RN) 0823 (Given - Provider: Carolynn Leyva RN)1741 (Given - Provider: Carolynn Leyva RN) 0825 (Given - Provider: Sim Dale, JESSEE) multivitamin with minerals 1 tablet 1 tablet, Oral, Daily, First dose on Wed06/26/25 at 0900, ([facility]) 0918 (Given - Provider: Carolynn Leyva RN) 0824 (Given - Provider: Carolynn Leyva RN) 0824 (Given - Provider: Sim Dale RN) oxyCODONE (ROXICODONE) immediate release tablet 10 mg 10 mg, Oral, Every 4 Hours, First dose (after last modification) on Wed07/27/25 at 1700, For 289 hours, Based on patient request - if ordered [...] 7-10, CPOT 5-8 0030 (Given - Provider: Lou Logan RN)0612 (Given - Provider: Lou Logan, JESSEE)0916 (Given - Provider: Carolynn Leyva RN)1435 (Given - Provider: Carolynn Leyva RN)1709 (Given - Provider: Carolynn Leyva RN)2151 (Given - Provider: Lou Logan, JESSEE) 0139 (Given - Provider: Lou Logan RN)0602 (Given - Provider: Lou Logan RN)0823 (Given - Provider: Carolynn Leyva RN)1251 (Given - Provider: Carolynn Leyva RN)1741 (Given - Provider: Carolynn Leyva RN)2135 (Given - Provider: Juliet Silverio RN) 0031 (Given - Provider: Juliet Silverio RN)0530 (Not Given - Provider: Juliet Silverio RN - Reason: Patient/family refused)0824 (Given - Provider: Smi Dale RN)1351 (Given - Provider: Sim Dale RN) thiamine (VITAMIN B-1) tablet 100 mg 100 mg, Oral, Daily, First dose on Wed07/26/25 at 1500 0918 (Given - Provider: Carolynn Leyva RN) 0822 (Given - Provider: Carolynn Leyva RN) 0823 (Given - Provider: Sim Dale RN) vancomycin (VANCOCIN) capsule 125 mg ()(Linked Group 1) 125 mg, Oral, Daily, First dose on Wed07/25/25 at 0900, For 7 days, Do not crush or chew the capsules or tablets. Contact Pharmacy if needed., Indications: Clostridioides Difficile Infection 0918 (Given - Provider: Carolynn Leyva, JESSEE) vancomycin (VANCOCIN) capsule 125 mg(Linked Group 1) 125 mg, Oral, Weekly, First dose on Wed08/01/25 at 0900, For 7 doses, Do not crush or chew the capsules or tablets. Contact Pharmacy if needed., Indications: Clostridioides Difficile Infection 0827 (Given - Provider: Carolynn Leyva, JESSEE) ziprasidone (GEODON) capsule 20 mg(Linked Group 2) 20 mg, Oral, Nightly, First dose on Wed07/24/25 at 2100, May cause prolongation of QT interval. Take with food. Group 2 ([place]) Hazardous Drug - Reproductive Risk Only - See Handling Guide 2150 (Given - Provider: Lou Logan RN) 2135 (Given - Provider: Juliet Silverio RN) ziprasidone (GEODON) injection 10 mg(Linked Group 2) 10 mg, Intramuscular, Nightly, First dose on Wed07/24/25 at 2100, Reconstitute 20-mg vial with 1.2 mL of sterile water for injection. Do not use any other solvent to reconstitute. Shake vigorously until all drug is dissolved. Reconstituted solution concentration is 20 mg/mL. DO NOT administer IV. Max dose 40 mg/day. Group 2 ([place]) Hazardous Drug - Reproductive Risk Only - See Handling Guide 2150 (Not Given: See Alt - Provider: Lou Logan RN) 2135 (Not Given: See Alt - Provider: Juliet Silverio RN) PRN Medication Order 07/31/2025 08/01/2025 08/02/2025 aluminum-magnesium hydroxide-simethicone (MAALOX MAX) 400-400-40 MG/5ML suspension 15 mL 15 mL, Oral, Every 6 Hours PRN, Heartburn, Starting on Wed06/25/25 at 2309, Maximum 60 mL in 24 hours. benzonatate (TESSALON) capsule 200 mg 200 mg, Oral, 3 Times Daily PRN, Cough, Starting on Wed07/16/25 at 1155, Do not crush or chew the capsules or tablets. The drug may not work as designed if the capsule or tablet is crushed or chewed. Swallow whole. Swallow whole. Do not crush, chew, or open capsule. bisacodyl (DULCOLAX) EC tablet 5 mg(Linked Group 3) 5 mg, Oral, Daily PRN, Constipation, Use if polyethylene glycol is ineffective, Starting on Wed06/25/25 at 2309, Use if no bowel movement after 12 hours. Swallow whole. Do not crush, split, or chew tablet. bisacodyl (DULCOLAX) suppository 10 mg(Linked Group 3) 10 mg, Rectal, Daily PRN, Constipation, Use if bisacodyl oral is ineffective, Starting on Wed06/25/25 at 2309, Use if no bowel movement after 12 hours. Hold for diarrhea dextrose (D50W) (25 g/50 mL) IV injection 25 g 25 g, Intravenous, Every 15 Minutes PRN, Low Blood Sugar, Blood Sugar Less Than 70, Starting on Wed07/27/25 at 0805, Blood sugar less than 70; patient has IV access - Unresponsive, NPO or Unable To Safely Swallow dextrose (GLUTOSE) oral gel 15 g 15 g, Oral, Every 15 Minutes PRN, Low Blood Sugar, Blood sugar less than 70, Starting on Wed07/27/25 at 0805, BS<70, Patient Alert, Is not NPO, Can safely swallow. diphenhydrAMINE-zinc acetate 2-0.1 % cream 1 Application 1 Application, Topical, 3 Times Daily PRN, Rash, Irritation, Itching, Starting on 07/07/25 at 0100, Apply to affected area as needed Caution: Look alike/sound alike drug alert. ([facility]) glucagon (GLUCAGEN) injection 1 mg 1 mg, Subcutaneous, Every 15 Minutes PRN, Low Blood Sugar, Blood Glucose Less Than 70 - Patient Without IV Access - Unresponsive, NPO or Unable To Safely Swallow, Starting on 07/14/25 at 1458, Reconstitute powder for injection by adding 1 mL of route sales person-supplied sterile diluent or sterile water for injection to a vial containing 1 mg of the drug, to provide solutions containing 1 mg/mL. Shake vial gently to dissolve. influenza vac split high-dose (FLUZONE HIGH DOSE) injection 0.5 mL 0.5 mL, Intramuscular, During Hospitalization, Immunization, Starting on 06/30/25 at 1421, For 1 dose, Do Not Administer if Temperature Greater Than 102F & Notify Pharmacy Pneumococcal & Influenza Vaccines May Be Given At The Same Time in SEPARATE Injections. Do not administer if temperature greater than 102F & notify pharmacy. Pneumococcal and influenza vaccines may be given at the same time in SEPARATE injections. ipratropium-albuterol (DUO-NEB) nebulizer solution 3 mL 3 mL, Nebulization, Every 6 Hours PRN, Shortness of Air, Wheezing, Starting on Wed06/26/25 at 0130, Include Respiratory Treatment Education ondansetron (ZOFRAN) injection 4 mg 4 mg, Intravenous, Every 6 Hours PRN, Nausea, Vomiting, Starting on Wed06/25/25 at 2309, If BOTH ondansetron (ZOFRAN) and promethazine (PHENERGAN) are ordered use ondansetron first and THEN promethazine IF ondansetron is ineffective. oxyCODONE (ROXICODONE) immediate release tablet 15 mg 15 mg, Oral, Every 4 Hours PRN, Severe Pain, Starting on Wed07/30/25 at 0848, For 207 hours, Based on patient request - if ordered for moderate or severe pain, provider allows for administration of a medication prescribed for a lower pain scale. (MAGGI) If given for pain, use the following pain scale: Mild Pain = Pain Score of 1-3, CPOT 1-2 Moderate Pain = Pain Score of 4-6, CPOT 3-4 Severe Pain = Pain Score of 7-10, CPOT 5-8 1045 (Given - Provid er: Sim Dale RN) polyethylene glycol (MIRALAX) packet 17 g(Linked Group 3) 17 g, Oral, Daily PRN, Constipation, Use if senna-docusate is ineffective, Starting on Wed06/25/25 at 2309, Use if no bowel movement after 12 hours. Mix in 6-8 ounces of water. Use 4-8 ounces of water, tea, or juice for each 17 gram dose. sennosides-docusate (PERICOLACE) 8.6-50 MG per tablet 2 tablet(Linked Group 3) 2 tablet, Oral, 2 Times Daily PRN, Constipation, Starting on Wed06/25/25 at 2309, Start bowel management regimen if patient has not had a bowel movement after 12 hours. ziprasidone (GEODON) injection 10 mg 10 mg, Intramuscular, Every 6 Hours PRN, Agitation, Starting on 07/14/25 at 1325, Reconstitute 20-mg vial with 1.2 mL of sterile water for injection. Do not use any other solvent to reconstitute. Shake vigorously until all drug is dissolved. Reconstituted solution concentration is 20 mg/mL. DO NOT administer IV. Max dose 40 mg/day. Group 2 ([place]) Hazardous Drug - Reproductive Risk Only - See Handling Guide Linked Groups Order Group 1: vancomycin (VANCOCIN) capsule 125 mg () 125 mg, Oral, 4 Times Daily, First dose on Wed06/26/25 at 1200, For 14 days, Do not crush or chew the capsules or tablets. Contact Pharmacy if needed., Indications: Clostridioides Difficile Infection Followed by vancomycin (VANCOCIN) capsule 125 mg () 125 mg, Oral, 3 Times Daily, First dose on Wed07/10/25 at 1600, For 7 days, Do not crush or chew the capsules or tablets. Contact Pharmacy if needed., Indications: Clostridioides Difficile Infection Followed by vancomycin (VANCOCIN) capsule 125 mg () 125 mg, Oral, 2 Times Daily, First dose on Wed07/17/25 at 2100, For 7 days, Do not crush or chew the capsules or tablets. Contact Pharmacy if needed., Indications: Clostridioides Difficile Infection Followed by vancomycin (VANCOCIN) capsule 125 mg ()Jump to med 125 mg, Oral, Daily, First dose on Wed07/25/25 at 0900, For 7 days, Do not crush or chew the capsules or tablets. Contact Pharmacy if needed., Indications: Clostridioides Difficile Infection Followed by vancomycin (VANCOCIN) capsule 125 mgJump to med 125 mg, Oral, Weekly, First dose on Wed08/01/25 at 0900, For 7 doses, Do not crush or chew the capsules or tablets. Contact Pharmacy if needed., Indications: Clostridioides Difficile Infection Group 2: ziprasidone (GEODON) capsule 20 mgJump to med 20 mg, Oral, Nightly, First dose on Wed07/24/25 at 2100, May cause prolongation of QT interval. Take with food. Group 2 ([place]) Hazardous Drug - Reproductive Risk Only - See Handling Guide Or ziprasidone (GEODON) injection 10 mgJump to med 10 mg, Intramuscular, Nightly, First dose on Wed07/24/25 at 2100, Reconstitute 20-mg vial with 1.2 mL of sterile water for injection. Do not use any other solvent to reconstitute. Shake vigorously until all drug is dissolved. Reconstituted solution concentration is 20 mg/mL. DO NOT administer IV. Max dose 40 mg/day. Group 2 ([place]) Hazardous Drug - Reproductive Risk Only - See Handling Guide Group 3: sennosides-docusate (PERICOLACE) 8.6-50 MG per tablet 2 tabletJump to med 2 tablet, Oral, 2 Times Daily PRN, Constipation, Starting on Wed06/25/25 at 2309, Start bowel management regimen if patient has not had a bowel movement after 12 hours. And polyethylene glycol (MIRALAX) packet 17 gJump to med 17 g, Oral, Daily PRN, Constipation, Use if senna-docusate is ineffective, Starting on Wed06/25/25 at 2309, Use if no bowel movement after 12 hours. Mix in 6-8 ounces of water. Use 4-8 ounces of water, tea, or juice for each 17 gram dose. And bisacodyl (DULCOLAX) EC tablet 5 mgJump to med 5 mg, Oral, Daily PRN, Constipation, Use if polyethylene glycol is ineffective, Starting on Wed06/25/25 at 2309, Use if no bowel movement after 12 hours. Swallow whole. Do not crush, split, or chew tablet. And bisacodyl (DULCOLAX) suppository 10 mgJump to med 10 mg, Rectal, Daily PRN, Constipation, Use if bisacodyl oral is ineffective, Starting on Wed06/25/25 at 2309, Use if no bowel movement after 12 hours. 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
--- OUTSIDE RECORDS SUMMARY | 2025-07-03 11:31 | XMS_ITS | Encounter Summary ---
Author Organization [facility] yste Address [address] [place] [address] Care Team Providers Care Carbon Cutter Name Role Phone Gustavo Mehta MD Primary Care Provider + [phone] Reason for Visit * Reason Comments Wound Infection * Auth/Cert Specialty Diagnoses / Procedures Referred By Contac t Referred To Contact Diagnoses Cellulitis Referral ID Status Reason Start Date Expiration Date Visits Re quested Visits Authorized [id number] 1 1 Encounter Details Date Type Department Care Team (Late st Contact Info) Description 07/03/2025 12:31 PM EDT - 07/03/2025 2:44 PM EDT Surgery [facility] OR [address] [place] [address] Vaughn Hollingsworth, DO [address] [place], [place] [id number] ARTERIOGRAM LOWER EXTREMITY Social History Tobacco Use Types Packs/Day Years [...] and heating? Not hard at all 06/26/2025 [facility] - Occupational [...] things needed for daily living? No 06/26/2025 [facility] Utilities Answer Date Recorded In the [...] GED or equivalent No 06/26/2025 Preferred Language Guatemalan 06/26/2025 PHQ-2 Answer Date Recorded Patient Health Questionnaire-2 Score 1 06/26/2025 Sex and Gender Information Value Date Recorded Sex Assigned at Not on file Legal Sex Male 1:18 PM EDT Gender Identity Not on file Sexual Orientation Not on file documented as of this encounter Last Filed Vital Signs Vital Sign Reading Time Taken Comments Blood Pressure 108/95 07/03/2025 11:35 AM EDT Pulse 73 07/03/2025 11:35 AM EDT Temperature 36.8 C (98.2 F) 07/03/2025 11:35 AM EDT Respiratory Rate 18 07/03/2025 11:35 AM EDT Oxygen Saturation 94% 07/03/2025 11:35 AM EDT Inhaled Oxygen Concentration - - Weight 114 kg (251 lb) 07/03/2025 11:35 AM EDT Height 182.9 cm (6') 07/03/2025 11:35 AM EDT Body Mass Index 34.72 07/03/2025 11:35 AM EDT documented in this encounter Functional Status * AUDIT-C Score Answer Date of Assessment Author 0 06/26/2025 11:27 AM EDT Janice Reilly RN * Question Answer Date of Assessment Author Q1: How often do you have a drink containing alcohol? Never 06/26/2025 11:27 AM KATYT Monalisa Reilly RN Q2: How many drinks containing alcohol do you have on a typical day when you are drinking? Patient does not drink 06/26/2025 11:27 AM Monalisa Logan RN Q3: How often do you have six or more drinks on one occasion? Never 06/26/2025 11:27 AM Monalisa Logan RN * Over the past 2 weeks, [...] AM EDT Kristan Burkett ms, RN * [place] Suicide Severity Rating Scale (Screener/Recent Self-Report) Question [...] Pool (70 y.o. Male) Nika Barfield RN [phone] Date of 1955 Social Security Number [id number] [place] [address] Mosque Jain Marital Status Single Admission Date 06/25/2025 Admission Type Emergency Admitting Provider Carolina Sargent II, DO Attending Provider Carolina Sargent II, DO Department, Room/Bed [facility] 6B, N636/1 Discharge Date Discharge Disposition Home [...] Coverage Payor Plan Insurance Group Employer/Plan Group [facility] MED[employer]ARE REPLACEMENT [employer] ADV[employer]AGE PPO Payor Plan Address Payor Plan Phone Number Payor Plan Fax Number Effective Dates [address] [address] 01/12/2024 - None Entered [facility] [address] Subscriber Name Subscriber Date Member ID TRUNG POOL 1955 [id number] Emergency Contacts Outside Cutter Hand (Rel.) Home Phone Work Phone Mobile Phone Zhane Salazar (Sister) [phone] -- [phone] [facility] 6B [address] [facility] [address] Date: Aug 01, 2025 Ambulatory Referral to Home Health Patient: Trung Pool [address] [facility] [address] : 1955 SSN: [id number] Sex: M INSURANCE PAYOR PLAN GROUP # SUBSCRIBER ID Primary: [facility] MEDICARE REPLACEMENT [id number] Referring Provider Information: CAROLINA SARGENT II Referral [...] treatment after discharge. Follow-up provider: GUSTAVO MEHTA [[id number]] Reason/Clinical Findings: PVD, cellulitis Describe mobility limitations that make leaving home difficult: impaired functional mobility, balance, gait and endurance Nursing/Therapeutic Services Requested: Jail Nursing/Therapeutic Services Requested: Physical Therapy Nursing/Therapeutic Services Requested: Occupational Therapy residential orders: Cardiopulmonary assessments residential orders: Neurovascular assessments residential orders: Wound care dressing/changes Instructions: Change mepilex [...] regarding this request for services. Please contact [address] at [phone] during normal business hours. 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 Last admitted to [facility] 06/02-06/11/25 for LLE cellulitis with failure of outpatient treatment. Wound cultures grew Proteus and concern for ESBL per lab and MRSA. He completed 7 days of IV abx prior to DC home. He has continued to decline LLE amputation. He returned to [facility] ED on 06/25/25 for evaluation of hematuria, [...] he refused to consider SNF outside of [place] and now wants to go home. Agreeable [...] Garcia MD 07/28/2025 7:43PM EST Workstation ID: [id number] Results for orders placed during the hospital [...] known as: NARCAN Call 911. Don't prime. [place] in 1 nostril for overdose. Repeat in [...] minutes on this discharge activity which included: ejfi-yj-srmxvnvehesqq with the patient, reviewing the data in the system, coordination of the care with the nursing staff as well as consultants, documentation, and entering orders. 1013 * Carolina Sargent II, DO - 08/01/2025 8:13 AM EST Images from the original note were not included. [facility] Medicine Services DISCHARGE SUMMARY Patient Name: Trung [...] disease) [I73.9] Yes 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 [I25.10] Yes Seizure [...] obesity and chronic debility. Last admitted to [facility] 06/02-06/11/25 for LLE cellulitis with failure of outpatient treatment. Wound cultures grew Proteus and concern for ESBL per lab and MRSA. He completed 7 days of IV abx prior to DC home. He has continued to decline LLE amputation. He returned to [facility] ED on 06/25/25 for evaluation of hematuria, [...] he refused to consider SNF outside of [place] and now wants to go home. Agreeable [...] Garcia MD 07/28/2025 7:43PM EST Workstation ID: [id number] Results for orders placed during the hospital [...] known as: NARCAN Call 911. Don't prime. [place] in 1 nostril for overdose. Repeat in [...] Health Care Surrogate No future appointments. Carolina M. Arie, II, DO 08/01/25 Time Spent on Discharge: I spent 37 minutes on this discharge activity which included: ugty-ms-yktjyylfwbblb with the patient, reviewing the data in the system, coordination of the care with the nursing staff as well as consultants, documentation, and entering orders. * Samia Barnes RN - 07/30/2025 11:17 AM EST Images from the original note were not included. Trung Pool (70 y.o. Male) Date of 1955 Social Security Number [id number] [place] [address] Mosque Jain Marital Status Single Admission Date 06/25/2025 Admission Type Emergency Admitting Provider Carolina Sargent II, DO Attending Provider Carolina Sargent II, DO Department, Room/Bed [facility] 6B, N636/1 Discharge Date Discharge Disposition Discharge [...] Plan Fax Number Effective Dates [address] [address] 01/12/2024 - None Entered [facility] [address] Subscriber Name Subscriber Date Member ID TRUNG POOL 1955 [id number] Emergency Contacts Outside Cutter Hand (Rel.) Home Phone Work Phone Mobile Phone Zhane Salazar (Sister) [phone] -- [phone] History & Physical Amanda Bermudez MD at 06/25/25 2222 [facility] Medicine Services HISTORY AND PHYSICAL [...] femoral access; Surgeon: Jared Marcano MD; Location: [facility] CATH INVASIVE LOCATION; Service: Peripheral Vascular; Laterality: N/A; CORONARY ANGIOPLASTY WITH STENT PLACEMENT stent x 1 INCISION AND DRAINAGE FOOT Left 06/17/2023 Procedure: LEFT FOOT DEBRIDEMENT WOUND VACUUM ASSISTED CLOSURE; Surgeon: Cecil Buenrostro Jr., MD;Location: [facility] OR; Service: Orthopedics; Laterality: Left; INCISION AND DRAINAGE LEG Left 07/25/2023 Procedure: INCISION AND DRAINAGE HEEL, WOUND VAC; Surgeon: Cecil Buenrostro Jr., MD; Location: [facility] OR; Service: Orthopedics; Laterality: Left; INTERVENTIONAL RADIOLOGY PROCEDURE N/A 05/02/2019 Procedure: IVC FILTER PLACEMENT; Surgeon: Pedro Zapien MD; Location: [facility] IN[facility]ASIVE LOCATION; Service: Interventional Radiology INTERVENTIONAL RADIOLOGY PROCEDURE Left 09/07/2024 Procedure: LEFT peroneal arteriovenous fistula embolization - Right femoral access; Surgeon: Jared Marcano MD; Location: [facility] CATH INVASIVE LOCATION; Service: Cardiovascular; Laterality: Left; Please coordinate with Gautam Patel ([facility]) [phone] who will bring coils LUMBAR DISCECTOMY N/A [...] determine due to loaded field 0-2 Specific [place], UA 1.019 1.011 Ketones, UA Negative Negative Blood, UA Large (3+) Large (3+) Leukocytes, UA Large (3+) Large (3+) Nitrite, UA Positive Positive RBC, UA Too Numerous to Count 6-10 WBC, UA Too Numerous to Count Too Numerous to Count Bacteria, UA 4+ 4+ Microbiology Results (last 10 days) Procedure Component Value - Date/Time Wound Culture - Swab, Foot, Left [[id number]] Collected: 06/25/251817 Lab Status: Preliminary result Specimen: [...] Ferraro 06/25/2025 9:53 PM EDT Workstation ID: [id number] ORIGINAL REPORT: CT ABDOMEN PELVIS W CONTRAST [...] Ferraro 06/25/2025 7:55 PM EDT Workstation ID: [id number] Result Date: 06/25/2025 CT ABDOMEN PELVIS W CONTRAST Date of Exam: 06/25/2025 7:05 PM EDT Indication: Diarrhea, hematuria,abdominal discomfort. Comparison: 06/02/2025 Technique: Axial CT images were obtained of the abdomenand pelvis following the uneventful intravenous administration of iodinated contrast. Reconstructedcoronal and sagittal images were also obtained. Automated [...] Small fat- containing umbilical hernia. There are bilateral inguinal hernias. Smaller right inguinal hernia contains fat. Larger left inguinal hernia containsa partial loop of sigmoid colon. No proximal dilatation. The appendix appears within normal limits.No definite findings of acute colonic inflammation. 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 Acute on chronic anemia --H/H 8.9 MCV 76 patient reported hematuria in the [...] minutes Time spent includes time reviewing chart, hdyq-eq-jfnq time, counseling patient/family/caregiver, ordering medications/tests/procedures, communicating with other health emergency care tech, documenting clinical information in the electronic health record, and coordination of care. VTE Prophylaxis: Pharmacologic VTE prophylaxis orders are signed & held. CODE STATUS: Code Status and Medical Interventions: CPR (Attempt to Resuscitate); Full Support Ordered at: 06/25/25 9120 Code Status (Patient has no pulse and [...] mg 1,000 mg Oral Q8H Talisha Resendez, CONSTRUCTION COST ESTIMATOR 1,000 mg at 07/30/25 0932 aluminum-magnesium hydroxide-simethicone (MAALOX MAX) 400-400-40 MG/5ML suspension 15 mL 15 mL [id number] PRN Vaughn Hollingsworth, apixaban (ELIQUIS) tablet 5 mg 5 mg Oral BID Margaret Massey, CONSTRUCTION COST ESTIMATOR 5 mg at 07/30/25 0931 ascorbic acid (VITAMIN C) tablet 500 mg 500 mg Oral Daily Vaughn Hollingsworth, DO 500 mg at 07/30/25 0932 baclofen (LIORESAL) tablet 5 mg 5 mg Oral Q12H Talisha Resendez, CONSTRUCTION COST ESTIMATOR 5 mg at 07/30/25 0932 benzonatate (TESSALON) [...] 25 g Intravenous Q15 Min PRN Ju Gonzalez APRN dextrose (GLUTOSE) oral gel 15 g 15 g Oral Q15 Min PRN Ju Gonzalez APRN diphenhydrAMINE-zinc acetate 2-0.1 % cream 1 Application 1 Application Topical TID PRN Flynn Orellana PA-C famotidine (PEPCID) tablet 20 mg 20 mg Oral BID AC Vaughn Hollingsworth, DO 20 mg at 07/30/25 0538 finasteride (PROSCAR) tablet 5 mg 5 mg Oral Daily Vaughn Hollingsworth DO 5 mg at 07/30/25 0932 folic acid (FOLVITE) tablet 1 mg 1 mg Oral Daily Vaughn Hollingsworth DO 1 mg at 07/30/25 0931 gabapentin [...] Nightly Chantale Gonzalez APRN 22 Units at 07/29/256 Insulin Lispro (humaLOG) injection 2-7 Units 2-7 Units Subcutaneous TID With Meals Ju Gonzalez APRN 2 Units at 07/29/25 1756 ipratropium-albuterol (DUO-NEB) nebulizer solution 3 mL 3 mL Nebulization Q6H PRN Vaughn Hollingsworth DO lamoTRIgine (LaMICtal) tablet 100 mg 100 mg Oral Daily Vaughn Hollingsworth DO 100 mg at 07/30/25 0932 lamoTRIgine (LaMICtal) tablet 250 mg 250 mg Oral Nightly Vaughn Hollingsworth DO 250 mg at 07/29/25 2127 methenamine (HIPREX) tablet 1 g 1 g Oral BID With Meals Vaughn Hollingsworth DO 1 g at 07/30/25 0932 multivitamin with minerals 1 tablet 1 tablet Oral Daily Vaughn Hollingsworth, DO 1 tablet at 07/30/25 0932 ondansetron (ZOFRAN) injection 4 mg 4 mg Intravenous Q6H PRN Vaughn Hollingsworth, DO 4 mg at 07/16/25 0923 oxyCODONE (ROXICODONE) immediate release tablet 10 mg 10 mg Oral Q4H Ju Gonzalez, CONSTRUCTION COST ESTIMATOR 10 mg at 07/30/25 0931 oxyCODONE (ROXICODONE) immediate release tablet 15 mg 15 mg Oral Q4H PRN Carolina Sargent II, DO thiamine (VITAMIN B-1) tablet 100 mg 100 mg Oral Daily Ju Gonzalez, CONSTRUCTION COST ESTIMATOR 100 mg at 07/30/25 0932 vancomycin (VANCOCIN) capsule 125 mg 125 mg Oral Daily Vaughn Hollingsworth, DO 125 mg at 07/30/25 0932 Followed by [START ON 08/01/2025] vancomycin (VANCOCIN) capsule 125 mg 125 mg Oral Weekly Vaughn Hollingsworth, DO ziprasidone (GEODON) capsule 20 mg 20 mg Oral Nightly Shara Bermudez, CONSTRUCTION COST ESTIMATOR 20 mg at 07/29/252126 Or ziprasidone (GEODON) injection 10 mg 10 mg Intramuscular Nightly Shara Bermudez, CONSTRUCTION COST ESTIMATOR 10 mg at 07/24/252009 ziprasidone (GEODON) injection 10 mg 10 mg Intramuscular Q6H PRN Gigi Alcantara MD 10 mg at 07/24/25 1003 Physician Progress Notes (most recent note) Carolina Sargent II, at 07/30/25 0913 [facility] Medicine Services PROGRESS NOTE Patient Name: Trung [...] Urine Culture - Urine, Indwelling Urethral Catheter [[id number]] (Abnormal) Collected: 07/14/2552 Lab Status: Final result Specimen: Urine from Indwelling Urethral Catheter Updated: 07/15/25 1329 Urine Culture Yeast isolated Narrative: No further workup for yeast Colonization of the urinary tract without infection is common. Treatment is discouraged unless the patient is symptomatic, , or undergoing an invasive urologic procedure. Urine Culture - Urine, Indwelling Urethral Catheter [[id number]] (Abnormal) (Susceptibility) Collected: 06/25/252000 Lab Status: Final [...] Resistant Blood Culture - Blood, Hand, Right [[id number]] (Abnormal) (Susceptibility) Collected: 06/25/25 2030 Lab Status: [...] report. Wound Culture - Swab, Foot, Left [[id number]] (Abnormal) (Susceptibility) Collected: 06/25/25 181 Lab Status: [...] Culture ID, PCR - Blood, Hand, Right [[id number]] (Abnormal) Collected: 06/25/252029 Lab Status: Final result Specimen: Blood from Hand, Right Updated: 06/26/252101 BCID, PCR Enterococcus faecium. Zee/B (vancomycin resistance gene) not detected. Identification byBCID2 PCR. BOTTLE TYPE Anaerobic Bottle Narrative: Infectious disease consultation is highly recommended to rule out distant foci of infection. MRSA Screen, PCR (Inpatient) - Swab, Nares [[id number]] (Abnormal) Collected: 06/26/2545 Lab Status: Final result Specimen: Swab from Nares Updated: 06/26/25849 MRSA PCR Positive Narrative: The negative predictive value of this diagnostic test is high and should only be used to consider de-escalating anti-MRSA therapy. A positive result may indicate colonization with MRSA and must be correlated clinically. Gastrointestinal Panel, PCR - Stool, Per Rectum [[id number]] (Abnormal) Collected: 06/26/2545 Lab Status: Final result [...] Clostridioides difficile Toxin - Stool, Per Rectum [[id number]] (Abnormal) Collected: 06/26/2545 Lab Status: Final result Specimen: Stool from Per Rectum Updated: 06/26/25754 Narrative: The following orders were created for panel order Clostridioides difficile Toxin - Stool, Per Rectum. Procedure Abnormality Status --------- ------ Clostridioides difficile...[[id number]] Abnormal Final result Please view results for these tests on the individual orders. Clostridioides difficile Toxin, PCR - Stool, Per Rectum [[id number]] (Abnormal) Collected: 06/26/2545 Lab Status: Final result [...] MD 07/28/2025 7:43 PM EST Workstation ID: [id number] Results for orders placed during the hospital [...] disease) [I73.9] Yes 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 [I25.10] Yes Seizure [...] obesity and chronic debility. Last admitted to [facility] 06/02-06/11/25 for LLE cellulitis with failure of outpatient treatment. Wound cultures grew Proteus and concern for ESBL per lab and MRSA. He completed 7 days of IV abx prior to DC home. He has declined LLE amputation He returned to [facility] ED on 06/25/25 for evaluation of hematuria, L foot drainage, diarrhea and fatigue. Found to have Norovirus and Enterococcus bacteremia. Hospital course complicated by hospital delirium on 07/14 Hospital-acquired delirium - waxing and waning - neurology follows - currently Ox3. Some intermittent situation confusion/ forgetfulness per sister - douglasalicia nightly/ prn not used LLE Wound Infection [...] - Needs OP referral to urology at [place] for long-term management pending C - continue methenamine Diarrhea Norovirus / C. [...] 1 Acute Care - Wound/Debridement Treatment Note [place] Patient Name: Trung Pool : 1955 Today's Date: 07/27/2025 Admit Date: 06/25/2025 Visit Dx: ICD-10-CM ICD-9-CM 1. Cellulitis of left lower extremity L03.116 682.6 2. Hematuria, unspecified type R31.9 599.70 3. Urinary tract infection associated with indwelling urethral catheter, initial encounter T83.095C960.64 N39.0 599.0 4. Diarrhea, unspecified type R19.7 [...] of migraine headaches 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 Left leg cellulitis [...] LEFT; Surgeon: Cecil Buenrostro Jr., MD; Location: [facility] OR; Service: Orthopedics; Laterality: Left; ANTERIOR CERVICAL DISCECTOMY W/ FUSION Bilateral 07/17/2020 Procedure: Cervical discectomy anterior with fusion C3-4; Surgeon: Tyree Tan MD; Location: [facility] OR; Service: Neurosurgery; Laterality: Bilateral; AORTOGRAM N/A 01/26/2024 Procedure: ABDOMINAL AORTIC ANGIOGRAM, LLE ANGIOGRAM, LEFT ANTERIOR TIBIAL ATHERECTOMY, LEFT ANTERIOR TIBIAL ANGIOPLASTY; Surgeon: Archie Olvera MD; Location: [facility]; Service: Vascular; Laterality: N/A; CONTRAST: 50 ML, FT: 2 MIN 54 SEC, DOSE: 66 MGY. AORTOGRAM Left 07/03/2025 Procedure: ARTERIOGRAM LOWER EXTREMITY; Surgeon: Vaughn Hollingsworth DO; Location: [facility]; Service: Vascular; Laterality: Left; FT-6MINS 24SEC 140 MGY CONTRAST -15ML BACK SURGERY FOR DISC HERNIATION CARDIAC CATHETERIZATION CARDIAC CATHETERIZATION N/A 09/04/2024 Procedure: Peripheral angiography - Left lower extremity angio - Right femoral access; Surgeon: Jared Marcano MD; Location: [facility]ATH INVASIVE LOCATION; Service: Peripheral Vascular; Laterality: [...] WOUND VAC; Surgeon: Vaughn Hollingsworth DO; Location: [facility]; Service: Vascular; Laterality: Left; INTERVENTIONAL RADIOLOGY PROCEDURE N/A 05/02/2019 Procedure: IVC FILTER PLACEMENT; Surgeon: Pedro Zapien MD; Location: [facility]ASIVE LOC[facility]; Service: Interventional Radiology INTERVENTIONAL RADIOLOGY PROCEDURE Left 09/07/2024 Procedure: LEFT peroneal arteriovenous fistula embolization - Right femoral access; Surgeon: Jared Marcano MD; Location: [facility]ASIVE LOC[facility]; Service: Cardiovascular; Laterality: Left; Please coordinate with Gautam Patel [facility] [phone] who will bring coils LUMBAR DISCECTOMY N/A 05/03/2019 Procedure: THORACIC LAMINECTOMY T11-12; Surgeon: Tyree Tan MD; Location: [facility]; Service: Neurosurgery Wound 01/28/24 Left anterior second toe Incision (Active) Dressing Appearance intact;moist drainage 07/27/251444 Dressing Removed Type foam 07/27/251444 Confirmed Empty Wound Bed Yes, visual inspection of wound bed 07/27/251444 Closure Unable to assess 07/26/251944 Base moist;pink;red;slough 07/27/251444 Periwound intact;dry 07/27/251444 Periwound Temperature warm 07/27/25 144 Periwound Skin Turgor soft 07/27/25 144 Edges irregular 07/27/25 144 Drainage Characteristics/Odor serosanguineous 07/27/251444 Drainage Amount scant 07/27/25 144 Care, Wound irrigated with;wound cleanser;debrided 07/27/251444 Dressing Care dressing changed;foam;low-adherent;silver impregnated 07/27/25 144 [...] Group Placement Date: 07/24/25 -SB Placement Time: 1910SB Present on Original Admission: N -SB Side: [...] LEFT FOOT -RS Additional Comments: PER MD DARRICK REYNOSO 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) - Properties Group Placement Date: 07/03/25 -RS Location: LEFT FOOT -RS Additional Comments: PER MD DARRICK REYNOSO 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) - Properties Group Placement Date: 07/03/25 -RS Location: LEFT FOOT -RS Additional Comments: PER MD DARRICK REYNOSO 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) - Properties Group Placement Date: 07/03/25 -RS Location: LEFT FOOT -RS Additional Comments: PER MD DARRICK REYNOSO Row Name 07/27/25 1440 Coping Observed Emotional State calm;cooperative - Verbalized Emotional State acceptance - Trust Relationship/Rapport care explained - Row Name 07/27/25 1440 Plan of Care Review Plan of Care [...] Nurse Physical Therapy Education Title: PT OT ELASTIC YARN TWISTER HELPER Therapies (In Progress) Topic: Physical Therapy (In [...] Date 08/04/25 -MF Untimed Charges Wound Care 73709 Non-selective debridement -MF 31227-Kht-yccjufdey debridement 20 -MF Total Minutes Untimed Charges Total Minutes 20 -MF Total Minutes 20 -MF User [place]anes (r) = Recorded By, (t) = Taken By, (c) = Cosigned By Initials Name Provider Type MF Duglas Mayes, PT Physical Therapist PT G-Codes Outcome Measure Options: AM-PAC 6 Clicks Daily Activity (OT) AM-PAC 6 Clicks Score (PT): 11 AM-PAC 6 Clicks Score (OT): 16 Duglas Mayes, MARY 07/27/2025 1505 Occupational Therapy Notes (most recent note) Shyla Tarango, OT at 07/26/25 0748 Acute Care - Occupational Therapy Discharge [facility] Patient Name: Trung Pool : 1955 Today's Date: 07/26/2025 Admit Date: 06/25/2025 Visit Dx: ICD-10-CM ICD-9-CM 1. Cellulitis of left lower extremity L03.116 682.6 2. Hematuria, unspecified type R31.9 599.70 3. Urinary tract infection associated with indwelling urethral catheter, initial encounter T83.301I768.64 N39.0 599.0 4. Diarrhea, unspecified type R19.7 [...] of migraine headaches 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 Left leg cellulitis [...] femoral access; Surgeon: Jared Marcano MD; Location: [facility] INVASIVE LOCATION; Service: Peripheral Vascular; Laterality: N/A; CORONARY ANGIOPLASTY WITH STENT PLACEMENT stent x 1 INCISION AND DRAINAGE FOOT Left 06/17/2023 Procedure: LEFT FOOT DEBRIDEMENT WOUND VACUUM ASSISTED CLOSURE; Surgeon: Cecil Buenrostro Jr., MD;Location: [facility]; Service: Orthopedics; Laterality: Left; INCISION AND DRAINAGE LEG Left 07/25/2023 Procedure: INCISION AND DRAINAGE HEEL, WOUND VAC; Surgeon: Cecil Buenrostro Jr., MD; Location: [facility]; Service: Orthopedics; Laterality: Left; INCISION AND DRAINAGE LEG Left 07/03/2025 Procedure: DEBRIDEMENT WOUND, PLACEMENT OF WOUND VAC; Surgeon: Vaughn Hollingsworth DO; Location: [facility]; Service: Vascular; Laterality: Left; INTERVENTIONAL RADIOLOGY PROCEDURE N/A 05/02/2019 Procedure: IVC FILTER PLACEMENT; Surgeon: Pedro Zapien MD; Location: [facility]; Service: Interventional Radiology INTERVENTIONAL RADIOLOGY PROCEDURE Left 09/07/2024 Procedure: LEFT peroneal arteriovenous fistula embolization - Right femoral access; Surgeon: Jared Marcano MD; Location: [facility]; Service: Cardiovascular; Laterality: Left; Please coordinate with Gautam Patel ([facility]) [phone] who will bring coils LUMBAR DISCECTOMY N/A [...] to right;sit to supine/supine to sit -CH Preston Level/Cues Needed (Bed Mobility Goal 1, OT) minimum assist (75% or more patient effort);verbal cues required;nonverbal cues (demo/gesture) required;moderate assist (50-74% patient effort) -CH Progress/Outcomes (Bed Mobility Goal 1, OT) medical status inhibited participation;medical status inhibiting progress;goal no longer appropriate -CH Row Name 07/26/25745 Transfer Goal 1 (OT) Activity/Assistive Device (Transfer Goal 1, OT) tum-dm-lhmqw/ukbpk-jv-vfl -CH Preston Level/Cues Needed (Transfer Goal 1, OT) moderate assist (50-74% patient effort) -CH Progress/Outcome (Transfer Goal 1, OT) medical status inhibiting progress;medical status inhibited participation;goal no longer appropriate -CH Row Name 07/26/25745 Bathing Goal 1 (OT) Activity/Device (Bathing Goal 1, OT) upper body bathing -CH Preston Level/Cues Needed (Bathing Goal 1, OT) minimum assist (75% or more patient effort);set-up required -CH Progress/Outcomes (Bathing Goal 1, OT) medical status inhibiting progress;medical status inhibited participation;goal no longer appropriate -CH Row Name 07/26/2525 Dressing Goal 1 (OT) Activity/Device (Dressing Goal 1, OT) upper body dressing;lower body dressing -CH Preston/Cues Needed (Dressing Goal 1, OT) standby assist -CH Time Frame (Dressing Goal 1, OT) short term goal (STG);4 days -CH Strategies/Barriers (Dressing Goal 1, OT) sitting EOB -CH Progress/Outcome (Dressing Goal 1, OT) medical status inhibiting progress;medical status inhibited participation;goal no longer appropriate -CH Row Name 07/26/2567 Grooming Goal 1 (OT) Activity/Device (Grooming Goal 1, OT) oral care;wash face, hands -CH Preston (Grooming Goal 1, OT) set-up required -CH Strategies/Barriers (Grooming Goal 1, OT) sitting EOB with good dynamic sitting balance -CH Progress/Outcome (Grooming Goal 1, OT) medical status inhibiting progress;medical status inhibited participation;goal no longer appropriate -CH Row Name 07/26/2533 Strength Goal 1 (OT) Strength Goal 1 (OT) Pt. will completed UE and core TE with progressive reps and resistance to support ADL and transfer independence. -CH Progress/Outcome (Strength Goal 1, OT) goal no longer appropriate;medical status inhibiting progress;medical status inhibited participation - User Llanes (r) = Recorded By, (t) = Taken By, (c) = Cosigned By Initials Name Provider Type Shyla Tarango, OT Occupational Therapist Clinical Impression Row Name 07/26/25 0746 Plan of Care Review Outcome Evaluation Pt transitioning to comfort measures, will discontinue OT consult. - User Llanes (r) = Recorded By, (t) = Taken By, (c) = Cosigned By Initials Name Provider Type Shyla Tarango, OT Occupational Therapist Outcome Measures Row Name [...] Cosigned By Initials Name Provider Type Guerita Gustafson RN Registered Nurse OT Recommendation and Plan [...] OT Discharge Summary Anticipated Discharge Disposition (OT): senior living facility Shyla Tarango OT 07/26/2025 0748 * Monalisa Reilly RN - 07/27/2025 12:52 PM EST Images from the original note were not included. Case Management Monalisa Reilly RN [phone] Trung Pool Michelle (70 y.o. Male) Date of 1955 Social Security Number [id number] [place] [address] [place] Jain Marital Status Single Admission Date 06/25/2025 Admission Type Emergency Admitting Provider Mart Ridley MD Attending Provider Mart Ridley MD Department, Room/Bed [facility] 6B, N636/1 Discharge Date Discharge Disposition Discharge [...] Employer/Plan Group [employer] [place] MED[employer] REPLACEMENT [facility] MEDICARE ADVANTAGE PPO Payor Plan Address Payor Plan Phone Number Payor Plan Fax Number Effective Dates [address] [address] 01/12/2024 - None Entered [facility] [address] Subscriber Name Subscriber Date Member ID TRUNG POOL MICHELLE 1955 [id number] Emergency Contacts Outside Cutter Hand (Rel.) Home Phone Work Phone Mobile Phone Zhane Salazar (Sister) [phone] -- [phone] History & Physical Amanda Bermudez MD at 06/25/25 2222 [facility] Medicine Services HISTORY AND PHYSICAL [...] Cecil Buenrostro Jr., MD; Location: [facility]; Service: Orthopedics; Laterality: Left; ANTERIOR CERVICAL DISCECTOMY W/ FUSION Bilateral 07/17/2020 Procedure: Cervical discectomy anterior with fusion C3-4; Surgeon: Tyree Tan MD; Location:[facility]; Service: Neurosurgery; Laterality: Bilateral; AORTOGRAM N/A [...] Laterality: Left; Please coordinate with Gautam Patel ([facility] [phone] who will bring coils LUMBAR DISCECTOMY N/A [...] determine due to loaded field 0-2 Specific [place], UA 1.019 1.011 Ketones, UA Negative Negative Blood, UA Large (3+) Large (3+) Leukocytes, UA Large (3+) Large (3+) Nitrite, UA Positive Positive RBC, UA Too Numerous to Count 6-10 WBC, UA Too Numerous to Count Too Numerous to Count Bacteria, UA 4+ 4+ Microbiology Results (last 10 days) Procedure Component Value - Date/Time Wound Culture - Swab, Foot, Left [[id number]] Collected: 06/25/251817 Lab Status: Preliminary result Specimen: [...] Ferraro 06/25/2025 9:53 PM EDT Workstation ID: [id number] ORIGINAL REPORT: CT ABDOMEN PELVIS W CONTRAST [...] Ferraro 06/25/2025 7:55 PM EDT Workstation ID: [id number] Result Date: 06/25/2025 CT ABDOMEN PELVIS W [...] Ferraro 06/25/2025 7:55 PM EDT Workstation ID: [id number] XR Foot 3+ View Left Result Date: [...] MD 06/25/2025 7:03 PM EDT Workstation ID: [id number] Results for orders placed during the hospital [...] hypertension Seizure disorder 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 Type 2 diabetes [...] minutes Time spent includes time reviewing chart, ffvb-cp-qczq time, counseling patient/family/caregiver, ordering medications/tests/procedures, communicating with other health emergency care tech, documenting clinical information in the electronic health [...] of Service: 07/25/25 1013 Creation Time: 07/25/25 101 Signed Show:Clear all [x]Written[x]Templated[x]Copied Added by: [x]Talisha Resendez APRN []Arianne for details Palliative Care Daily Progress Note [...] hypertension Seizure disorder 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 PAD (peripheral artery [...] to participate in GOC discussion with sister ([facility]) at bedside. Trung is able to state [...] Default Show:Clear all [x]Written[x]Templated[x]Copied Added by: [x]Ju Gonzalez, CONSTRUCTION COST ESTIMATOR []Arianne for details [facility] Medicine Services PROGRESS NOTE Patient Name: Trung Pool : 1955 Date of Admission: 06/25/2025 Primary Care Physician: Gustavo Mehta MD Subjective CC: f/u LLE HPI: Patient up in bed. Pain controlled currently. States he took all medication today. Wants to proceedwith outpatient Hospice and hopeful to go to [facility]. Wants to continue all medication for [...] Urine Culture - Urine, Indwelling Urethral Catheter [[id number]] (Abnormal) Collected: 07/14/2552 Lab Status: Final result Specimen: Urine from Indwelling Urethral Catheter Updated: 07/15/25 1329 Urine Culture Yeast isolated Narrative: No further workup for yeast Colonization of the urinary tract without infection is common. Treatment is discouraged unless the patient is symptomatic, , or undergoing an invasive urologic procedure. Urine Culture - Urine, Indwelling Urethral Catheter [[id number]] (Abnormal) (Susceptibility) Collected: 06/25/252000 Lab Status: Final [...] Resistant Blood Culture - Blood, Hand, Right [[id number]] (Abnormal) (Susceptibility) Collected: 06/25/252029 Lab Status: Edited [...] report. Wound Culture - Swab, Foot, Left [[id number]] (Abnormal) (Susceptibility) Collected: 06/25/25 1818 Lab Status: [...] Culture ID, PCR - Blood, Hand, Right [[id number]] (Abnormal) Collected: 06/25/25 2030 Lab Status: Final result Specimen: Blood from Hand, Right Updated: 06/26/252101 BCID, PCR Enterococcus faecium. Zee/B (vancomycin resistance gene) not detected. Identification byBCID2 PCR. BOTTLE TYPE Anaerobic Bottle Narrative: Infectious disease consultation is highly recommended to rule out distant foci of infection. MRSA Screen, PCR (Inpatient) - Swab, Nares [[id number]] (Abnormal) Collected: 06/26/25 0046 Lab Status: Final result Specimen: Swab from Nares Updated: 06/26/25 0850 MRSA PCR Positive Narrative: The negative predictive value of this diagnostic test is high and should only be used to consider de-escalating anti-MRSA therapy. A positive result may indicate colonization with MRSA and must be correlated clinically. Gastrointestinal Panel, PCR - Stool, Per Rectum [[id number]] (Abnormal) Collected: 06/26/2545 Lab Status: Final result [...] Clostridioides difficile Toxin - Stool, Per Rectum [[id number]] (Abnormal) Collected: 06/26/2545 Lab Status: Final result Specimen: Stool from Per Rectum Updated: 06/26/25754 Narrative: The following orders were created for panel order Clostridioides difficile Toxin - Stool, Per Rectum. Procedure Abnormality Status --------- ------ Clostridioides difficile...[[id number]] Abnormal Final result Please view results for these tests on the individual orders. Clostridioides difficile Toxin, PCR - Stool, Per Rectum [[id number]] (Abnormal) Collected: 06/26/2545 Lab Status: Final result [...] disease) [I73.9] Yes 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 [I25.10] Yes Seizure [...] obesity and chronic debility. Last admitted to [facility] 06/02-06/11/25 for LLE cellulitis with failure of outpatient treatment. Wound cultures grew Proteus and concern for ESBL per lab and MRSA. He completed 7 days of IV abx prior to DC home. He has declined LLE amputation He returned to [facility] ED on 06/25/25 for evaluation of hematuria, [...] - Needs OP referral to urology at [place] for long-term management pending C Diarrhea Norovirus / C. Diff colonization - [...] With: Patient Health Care Surrogate Ju Gonzalez, CONSTRUCTION COST ESTIMATOR 07/26/25 * Leonie Thomas - 07/26/2025 7:49 AM EST Patient Name: Trung Pool : 1955 Today's Date: 07/26/2025 Admit Date: 06/25/2025 Visit Dx: ICD-10-CM ICD-9-CM 1. Cellulitis of left lower extremity L03.116 682.6 2. Hematuria, unspecified type R31.9 599.70 3. Urinary tract infection associated with indwelling urethral catheter, initial encounter T83.110Z267.64 N39.0 599.0 4. Diarrhea, unspecified type R19.7 [...] of migraine headaches 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 Left leg cellulitis [...] LEFT; Surgeon: Cecil Buenrostro Jr., MD; Location: [facility]; Service: Orthopedics; Laterality: Left; ANTERIOR CERVICAL DISCECTOMY W/ FUSION Bilateral 07/17/2020 Procedure: Cervical discectomy anterior with fusion C3-4; Surgeon: Tyree Tan MD; Location:[facility]; Service: Neurosurgery; Laterality: Bilateral; AORTOGRAM N/A 01/26/2024 Procedure: ABDOMINAL AORTIC ANGIOGRAM, LLE ANGIOGRAM, LEFT ANTERIOR TIBIAL ATHERECTOMY, LEFT ANTERIOR TIBIAL ANGIOPLASTY; Surgeon: Archie Olvera MD; Location: [facility]; Service: Vascular; Laterality: N/A; CONTRAST: 50 ML, FT: 2 MIN 54 SEC, DOSE: 66 MGY. AORTOGRAM Left 07/03/2025 Procedure: ARTERIOGRAM LOWER EXTREMITY; Surgeon: Vaughn Hollingsworth DO; Location: [facility]; Service: Vascular; Laterality: Left; FT-6MINS 24SEC 140 MGY CONTRAST -15ML BACK SURGERY FOR DISC HERNIATION CARDIAC CATHETERIZATION CARDIAC CATHETERIZATION N/A 09/04/2024 Procedure: Peripheral angiography - Left lower extremity angio - Right femoral access; Surgeon: Jared Marcano MD; Location: [facility]; Service: Peripheral Vascular; Laterality: [...] femoral access; Surgeon: Jared Marcano MD; Location: [facility]; Service: Cardiovascular; Laterality: Left; Please coordinate with Gautam Patel ([facility] [phone] who will bring coils LUMBAR DISCECTOMY N/A [...] to sit;rolling to left;rolling to right -ML Preston Level/Cues Needed (Bed Mobility Goal 1, PT) independent -ML Progress/Outcomes (Bed Mobility Goal 1, PT) medical status inhibiting progress;goal no longer appropriate -ML Row Name 07/26/25 0748 Transfer Goal 1 (PT) Activity/Assistive Device (Transfer Goal 1, PT) zfp-gu-aseow/lmved-uu-yqz -ML Preston Level/Cues Needed (Transfer Goal 1, PT) independent -ML Strategies/Barriers (Transfers Goal 1, PT) w/ slide board or w/o -ML Progress/Outcome (Transfer Goal 1, PT) medical status inhibiting progress;goal no longer appropriate -ML Row Name 07/26/25 0748 Balance Goal 1 (PT) Activity/Assistive Device (Balance Goal) sitting dynamic balance -ML Preston Level/Cues Needed (Balance Goal 1, PT) supervision [...] Nurse Physical Therapy Education Title: PT OT ELASTIC YARN TWISTER HELPER Therapies (In Progress) Topic: Physical Therapy (In [...] PT Discharge Summary Anticipated Discharge Disposition (PT): senior living facility Leonie Thomas 07/26/2025 * Shyla Tarango, SOCO - 07/26/2025 7:48 AM EST Images from the original note were not included. Acute Care - Occupational Therapy Discharge [facility] Patient Name: Trung Pool : 1955 Today's Date: 07/26/2025 Admit Date: 06/25/2025 Visit Dx: ICD-10-CM ICD-9-CM 1. Cellulitis of left lower extremity L03.116 682.6 2. Hematuria, unspecified type R31.9 599.70 3. Urinary tract infection associated with indwelling urethral catheter, initial encounter T83.554P050.64 N39.0 599.0 4. Diarrhea, unspecified type R19.7 [...] of migraine headaches 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 Left leg cellulitis [...] TIBIAL ANGIOPLASTY; Surgeon: Archie Olvera MD; Location: [facility]; Service: Vascular; Laterality: N/A; CONTRAST: 50 ML, FT: 2 MIN 54 SEC, DOSE: 66 MGY. AORTOGRAM Left 07/03/2025 Procedure: ARTERIOGRAM LOWER EXTREMITY; Surgeon: Vaughn Hollingsworth DO; Location: [facility]; Service: Vascular; Laterality: Left; FT-6MINS 24SEC 140 MGY CONTRAST -15ML BACK SURGERY FOR DISC HERNIATION CARDIAC CATHETERIZATION CARDIAC CATHETERIZATION N/A 09/04/2024 Procedure: Peripheral angiography - Left lower extremity angio - Right femoral access; Surgeon: Jared Marcano MD; Location: [facility]; Service: Peripheral Vascular; Laterality: N/A; CORONARY ANGIOPLASTY WITH STENT PLACEMENT stent x 1 INCISION AND DRAINAGE FOOT Left 06/17/2023 Procedure: LEFT FOOT DEBRIDEMENT WOUND VACUUM ASSISTED CLOSURE; Surgeon: Cecil Buenrostro Jr., MD;Location: [facility]; Service: Orthopedics; Laterality: Left; INCISION AND DRAINAGE LEG Left 07/25/2023 Procedure: INCISION AND DRAINAGE HEEL, WOUND VAC; Surgeon: Cecil Buenrostro Jr., MD; Location: [facility]; Service: Orthopedics; Laterality: Left; INCISION AND DRAINAGE LEG Left 07/03/2025 Procedure: DEBRIDEMENT WOUND, PLACEMENT OF WOUND VAC; Surgeon: Vaughn Hollingsworth DO; Location: [facility]; Service: Vascular; Laterality: Left; INTERVENTIONAL RADIOLOGY PROCEDURE N/A 05/02/2019 Procedure: IVC FILTER PLACEMENT; Surgeon: Pedro Zapien MD; Location: [facility]; Service: Interventional Radiology INTERVENTIONAL RADIOLOGY PROCEDURE Left 09/07/2024 Procedure: LEFT peroneal arteriovenous fistula embolization - Right femoral access; Surgeon: Jared Marcano MD; Location: [facility]; Service: Cardiovascular; Laterality: Left; Please coordinate with Gautam Patel ([facility]) [phone] who will bring coils LUMBAR DISCECTOMY N/A 05/03/2019 Procedure: THORACIC LAMINECTOMY T11-12; Surgeon: Tyree Tan MD; Location: [facility]; Service: Neurosurgery General Information Row Name [...] to right;sit to supine/supine to sit - Preston Level/Cues Needed (Bed Mobility Goal 1, OT) minimum assist (75% or more patient effort);verbal cues required;nonverbal cues (demo/gesture) required;moderate assist (50-74% patient effort) -CH Progress/Outcomes (Bed Mobility Goal 1, OT) medical status inhibited participation;medical status inhibiting progress;goal no longer appropriate - Row Name 07/26/2546 Transfer Goal 1 (OT) Activity/Assistive Device (Transfer Goal 1, OT) sob-se-lcidp/vsfat-ky-rzq - Preston Level/Cues Needed (Transfer Goal 1, OT) moderate assist (50-74% patient effort) -CH Progress/Outcome (Transfer Goal 1, OT) medical status inhibiting progress;medical status inhibited participation;goal no longer appropriate - Row Name 07/26/2546 Bathing Goal 1 (OT) Activity/Device (Bathing Goal 1, OT) upper body bathing - Preston Level/Cues Needed (Bathing Goal 1, OT) minimum assist (75% or more patient effort);set-up required -CH Progress/Outcomes (Bathing Goal 1, OT) medical status inhibiting progress;medical status inhibited participation;goal no longer appropriate - Row Name 07/26/2546 Dressing Goal 1 (OT) Activity/Device (Dressing Goal 1, OT) upper body dressing;lower body dressing - Preston/Cues Needed (Dressing Goal 1, OT) standby assist -CH Time Frame (Dressing Goal 1, OT) short term goal (STG);4 days - Strategies/Barriers (Dressing Goal 1, OT) sitting EOB -CH Progress/Outcome (Dressing Goal 1, OT) medical status inhibiting progress;medical status inhibited participation;goal no longer appropriate - Row Name 07/26/25 0746 Grooming Goal 1 (OT) Activity/Device (Grooming Goal 1, OT) oral care;wash face, hands -CH Preston (Grooming Goal 1, OT) set-up required -CH Strategies/Barriers (Grooming Goal 1, OT) sitting EOB with good dynamic sitting balance -CH Progress/Outcome (Grooming Goal 1, OT) medical status inhibiting progress;medical status inhibited participation;goal no longer appropriate - Row Name 07/26/25 0746 Strength Goal 1 (OT) Strength Goal [...] Provider Type Shyla Tarango OT Occupational Therapist Clinical Impression Row Name 07/26/25745 Plan of Care Review Outcome Evaluation Pt [...] OT Discharge Summary Anticipated Discharge Disposition (OT): senior living facility Shyla Tarango OT 07/26/2025 * Monalisa Reilly RN - 07/16/2025 3:08 PM EST Images from the original note were not included. Case Management Monalisa Reilly RN [phone] Trung Pool (70 y.o. Male) Date of 1955 Social Security Number [id number] [place] [address] [place] [employer]ain Marital Status Single Admission Date 06/25/2025 Admission Type Emergency Admitting Provider Gigi Alcantara MD Attending Provider Gigi Alcantara MD Department, Room/Bed [facility] 6B, N636/1 Discharge Date Discharge Disposition Discharge [...] Plan Fax Number Effective Dates [address] [address] 01/12/2024 - None Entered [facility] [phone] Subscriber Name Subscriber Date Member ID TRUNG POOL 1955 [id number] Emergency Contacts Outside Cutter Hand (Rel.) Home Phone Work Phone Mobile Phone Zhane Salazar (Sister) [phone] -- [phone] History & Physical Amanda Bermudez MD at 06/25/25 2222 [facility] Medicine Services HISTORY AND PHYSICAL [...] femoral access; Surgeon: Jared Marcano MD; Location: [facility]; Service: Peripheral Vascular; Laterality: [...] femoral access; Surgeon: Jared Marcano MD; Location: [facility]; Service: Cardiovascular; Laterality: Left; Please coordinate with Gautam Patel ([facility]) [phone] who will bring coils LUMBAR DISCECTOMY N/A 05/03/2019 Procedure: THORACIC LAMINECTOMY T11-12; Surgeon: Tyree Tan MD; Location: [facility]; Service: Neurosurgery Family History: family history includes [...] determine due to loaded field 0-2 Specific [place], UA 1.019 1.011 Ketones, UA Negative Negative Blood, UA Large (3+) Large (3+) Leukocytes, UA Large (3+) Large (3+) Nitrite, UA Positive Positive RBC, UA Too Numerous to Count 6-10 WBC, UA Too Numerous to Count Too Numerous to Count Bacteria, UA 4+ 4+ Microbiology Results (last 10 days) Procedure Component Value - Date/Time Wound Culture - Swab, Foot, Left [[id number]] Collected: 06/25/251817 Lab Status: Preliminary result Specimen: [...] Ferraro 06/25/2025 9:53 PM EDT Workstation ID: [id number] ORIGINAL REPORT: CT ABDOMEN PELVIS W CONTRAST [...] Ferraro 06/25/2025 7:55 PM EDT Workstation ID: [id number] Result Date: 06/25/2025 CT ABDOMEN PELVIS W [...] Ferraro 06/25/2025 7:55 PM EDT Workstation ID: [id number] XR Foot 3+ View Left Result Date: [...] MD 06/25/2025 7:03 PM EDT Workstation ID: [id number] Results for orders placed during the hospital [...] hypertension Seizure disorder 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 Type 2 diabetes [...] minutes Time spent includes time reviewing chart, faii-tq-utxz time, counseling patient/family/caregiver, ordering medications/tests/procedures, communicating with other health emergency care tech, documenting clinical information in the electronic health [...] hours) Mere Armas PA-C at 07/16/25 1339 [facility] Medicine Services PROGRESS NOTE Patient Name: Trung [...] speech clear Results Reviewed: LAB RESULTS: Lab 07/16/2544607/15/2543107/14/25 0426 07/14/25 0425 07/13/25 0808 07/12/25 0454 WBC [...] Urine Culture - Urine, Indwelling Urethral Catheter [[id number]] (Abnormal) Collected: 07/14/2552 Lab Status: Final result Specimen: Urine from Indwelling Urethral Catheter Updated: 07/15/25 1329 Urine Culture Yeast isolated Narrative: No further workup for yeast Colonization of the urinary tract without infection is common. Treatment is discouraged unless the patient is symptomatic, , or undergoing an invasive urologic procedure. Urine Culture - Urine, Indwelling Urethral Catheter [[id number]] (Abnormal) (Susceptibility) Collected: 06/25/252000 Lab Status: Final [...] Resistant Blood Culture - Blood, Hand, Right [[id number]] (Abnormal) (Susceptibility) Collected: 06/25/252029 Lab Status: Edited [...] report. Wound Culture - Swab, Foot, Left [[id number]] (Abnormal) (Susceptibility) Collected: 06/25/25 1818 Lab Status: [...] Culture ID, PCR - Blood, Hand, Right [[id number]] (Abnormal) Collected: 06/25/25 2030 Lab Status: Final result Specimen: Blood from Hand, Right Updated: 06/26/252101 BCID, PCR Enterococcus faecium. Zee/B (vancomycin resistance gene) not detected. Identification byBCID2 PCR. BOTTLE TYPE Anaerobic Bottle Narrative: Infectious disease consultation is highly recommended to rule out distant foci of infection. MRSA Screen, PCR (Inpatient) - Swab, Nares [[id number]] (Abnormal) Collected: 06/26/25 0046 Lab Status: Final result Specimen: Swab from Nares Updated: 06/26/25 0850 MRSA PCR Positive Narrative: The negative predictive value of this diagnostic test is high and should only be used to consider de-escalating anti-MRSA therapy. A positive result may indicate colonization with MRSA and must be correlated clinically. Gastrointestinal Panel, PCR - Stool, Per Rectum [[id number]] (Abnormal) Collected: 06/26/2545 Lab Status: Final result Specimen: Stool from Per Rectum Updated: 06/26/25 0876 Campylobacter Not Detected Plesiomonas shigelloides Not Detected [...] Clostridioides difficile Toxin - Stool, Per Rectum [[id number]] (Abnormal) Collected: 06/26/2545 Lab Status: Final result Specimen: Stool from Per Rectum Updated: 06/26/25754 Narrative: The following orders were created for panel order Clostridioides difficile Toxin - Stool, Per Rectum. Procedure Abnormality Status --------- ------ Clostridioides difficile...[[id number]] Abnormal Final result Please view results for these tests on the individual orders. Clostridioides difficile Toxin, PCR - Stool, Per Rectum [[id number]] (Abnormal) Collected: 06/26/2545 Lab Status: Final result [...] disease) [I73.9] Yes 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 [I25.10] Yes Seizure [...] obesity and chronic debility. Last admitted to [facility] 06/02-06/11/25 for LLE cellulitis with failure of outpatient treatment. Wound cultures grew Proteus and concern for ESBL per lab and MRSA. He completed 7 days of IV abx prior to DC home. He has declined LLE amputation He returned to [facility] ED on 06/25/25 for evaluation of hematuria, [...] does not want to go to a fci, states that if we can avoid sending him to fci he may be agreeable to amputation. he states he does not want to but if ultimately he will end up in fci then he just wants to go home [...] finasteride. Plan to follow up outpatient for half-way bladder management Norovirus GI PCR panel with [...] signed off Expected Discharge Location and Transportation: [facility] Expected Discharge Expected Discharge Date: 07/20/2025; Expected Discharge Time: VTE Prophylaxis: Pharmacologic VTE prophylaxis orders are present. AM-PAC 6 Clicks Score (PT): 8 (07/16/25 0919) CODE STATUS: Code Status and Medical Interventions: CPR (Attempt to Resuscitate); Full Support Ordered at: 06/25/25 2310 Code Status (Patient has no pulse and is not breathing): CPR (Attempt to Resuscitate) Medical Interventions (Patient has pulse or is breathing): Full Support Level Of Support Discussed With: Patient Mere Armas PA-C 07/16/25 1407 Duglas Andres MD at 07/16/25 0814 Trung Martinez [facility] 1955 [id number] Evaluating Physician: Duglas Andres MD Chief Complaint: [...] excoriation/crusted areas at the toes, hospitalized at [facility] June 04 untilSe2022 and discharged with oral antibiotics for left lower extremity cellulitis; he alsohas nonhealing wounds at his buttocks 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 Admitted to [facility] June 13 2023 diagnosis of sepsis per admission notes, left lower extremity cellulitis with pressure injury at buttocks. 06/15/24 Dr Colón saw and recommended amputation; patient refused ; see his note for detail 06/17/23 Dr buenrostro discussed potential options for heel debridement with patient; MRI no osteomyelitis per radiology; taken to OR PROCEDURE: Left 95731: Debridement of skin and subcutaneous tissue 81478: wound vacuum-assisted closure, wound measuring 2.5 cm [...] 07/25/[address] Buenrostro PROCEDURE: Left 60983: Debridement of skin and subcutaneous tissue 15195: Wound vacuum-assisted closure culture data with MRSA/aneta. [...] possible intervention 01/28/24 Dr. 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 Faust in [place] and has seen Dr Oneal (ID in [place]); he is not a good historian with respect to detail. Reports having had some further surgery to the left foot although he is unable to clarify specific date/procedure. Culture at [facility] August 07, 2024 from left foot wound with ESBL Klebsiella pneumoniae and pseudomonas aeruginosa (microbiology lab there reports the Pseudomonas is sensitive to Merrem). He reports his outpatient practitioners had recommended admission to the hospital for IV antibiotics but patient had refused at that time. He also reports that he was in the emergency room at [facility] mid August, no cultures done at that time. Patient reports practitioners at [facility] had recommended higher level amputation but patient has continued to refuse that. He was readmitted to [facility] on August 31, 2024 with worsening odor/drainage andredness/pain to the left lower extremity in recent days/weeks. He reports having been taking outpatient Levaquin; prior history MRSA/PSA and ESBL organisms 09/04/24 Dr Marcano. Procedure/CPT?? Codes: RIGHT AFTER SCHOOL TEACHER access - ultrasound guided Aortogram with LEFT lower extremity run-off LEFT PT angioplasty ([id number] Nanocross) LEFT plantar angioplasty (6i308as Nanocross, 2.7m776ms UltraverseRx) LEFT AT angioplasty (3i669cw Nanocross, 2.5s811vl UltraverseRx) LEFT DP angioplasty (7b112ea Nanocross, 2.0p889wd UltraverseRx) RIGHT AFTER SCHOOL TEACHER closure (Angioseal) 09/07/24 Dr Marcano Procedure/CPT?? Codes: RIGHT AFTER SCHOOL TEACHER access - ultrasound guided Aortogram with LEFT lower extremity run-off LEFT Pr AVF embolization RIGHT AFTER SCHOOL TEACHER closure 09/09/24 moved to ICU overnight with [...] femoral artery and left popliteal artery 6 [place] Angio-Seal closure of right common femoral arteriotomy [...] LEFT; Surgeon: Cecil Buenrostro Jr., MD; Location: [facility]; Service: Orthopedics; Laterality: Left; ANTERIOR CERVICAL DISCECTOMY W/ FUSION Bilateral 07/17/2020 Procedure: Cervical discectomy anterior with fusion C3-4; Surgeon: Tyree Tan MD; Location:[facility]; Service: Neurosurgery; Laterality: Bilateral; AORTOGRAM N/A [...] Laterality: Left; Please coordinate with Gautam Patel ([facility]) [phone] who will bring coils LUMBAR DISCECTOMY N/A 05/03/2019 Procedure: THORACIC LAMINECTOMY T11-12; Surgeon: Tyree Tan MD; Location: [facility]; Service: Neurosurgery Pediatric History Patient Parents Not [...] Vaughn Hollingsworth DO Placed in Followed by [facility] 125 mg Oral 4 Times [...] mL IVPB Ordering Provider: Ally Jeffers V CONSTRUCTION COST ESTIMATOR 6 mg/kg ?? 94.6 kg (Adjusted) 100 mL/hr over 30 Minutes Intravenous Once 06/25/25212706/25/25230606/25/252111 meropenem (MERREM) 1,000 mg in sodium chloride 0.9 % 100 mL MBP Ordering Provider: Ally Jeffers V CONSTRUCTION COST ESTIMATOR 1,000 mg over 30 Minutes Intravenous Once [...] sensitive to Merrem per microbiology lab at [facility]. 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 ; readmission May 2025 and [...] 400-400-40 MG/5ML suspension 15 mL 15 mL [id number] PRN Amanda Bermudez MD [Held by provider] [...] 5 mg 5 mg Oral Daily PRN Amadna Bermudez MD And bisacodyl (DULCOLAX) suppository 10 [...] 5,000 Units Subcutaneous Q8H Albert, Lupe E, CONSTRUCTION COST ESTIMATOR 5,000 Units at 07/02/25 0649 influenza vac [...] flush 10 mL 10 mL Intravenous PRN [place], Ally V, CONSTRUCTION COST ESTIMATOR sodium chloride 0.9 % flush 10 mL [...] IVPB-VTB 1,000 mg Intravenous Q12H Osmany Mccann, [facility] 250 mL/hr at 07/01/252142 1,000 mg at [...] associated with indwelling urethral catheter, initial encounter T83.928U920.64 N39.0 599.0 4. Diarrhea, unspecified type R19.7 [...] of migraine headaches 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 Left leg cellulitis [...] LEFT; Surgeon: Cecil Buenrostro Jr., MD; Location: [facility]; Service: Orthopedics; Laterality: Left; ANTERIOR CERVICAL DISCECTOMY W/ FUSION Bilateral 07/17/2020 Procedure: Cervical discectomy anterior with fusion C3-4; Surgeon: Tyree Tan MD; Location: [facility]; Service: Neurosurgery; Laterality: Bilateral; AORTOGRAM N/A 01/26/2024 Procedure: ABDOMINAL AORTIC ANGIOGRAM, LLE ANGIOGRAM, LEFT ANTERIOR TIBIAL ATHERECTOMY, LEFT ANTERIOR TIBIAL ANGIOPLASTY; Surgeon: Archie Olvera MD; Location: [facility]; Service: Vascular; Laterality: N/A; CONTRAST: 50 ML, FT: 2 MIN 54 SEC, DOSE: 66 MGY. AORTOGRAM Left 07/03/2025 Procedure: ARTERIOGRAM LOWER EXTREMITY; Surgeon: Vaughn Hollingsworth DO; Location: [facility]; Service: Vascular; Laterality: Left; FT-6MINS [...] ASSISTED CLOSURE; Surgeon: Cecil Buenrostro Jr., MD;Location: [facility]; Service: Orthopedics; Laterality: Left; INCISION AND DRAINAGE LEG Left 07/25/2023 Procedure: INCISION AND DRAINAGE HEEL, WOUND VAC; Surgeon: Cecil Buenrostro Jr., MD; Location: [facility]; Service: Orthopedics; Laterality: Left; INCISION AND DRAINAGE LEG Left 07/03/2025 Procedure: DEBRIDEMENT WOUND, PLACEMENT OF WOUND VAC; Surgeon: Vaughn Hollingsworth DO; Location: [facility]; Service: Vascular; Laterality: Left; INTERVENTIONAL RADIOLOGY PROCEDURE N/A 05/02/2019 Procedure: IVC FILTER PLACEMENT; Surgeon: Pedro Zapien MD; Location: [facility]; Service: Interventional Radiology INTERVENTIONAL RADIOLOGY PROCEDURE Left 09/07/2024 Procedure: LEFT peroneal arteriovenous fistula embolization - Right femoral access; Surgeon: Jared Marcano MD; Location: [facility]; Service: Cardiovascular; Laterality: Left; Please coordinate with Gautam Patel ([facility]) [phone] who will bring coils LUMBAR DISCECTOMY N/A [...] LEFT FOOT -RS Additional Comments: PER MD DARRICK REYNOSO Therapy Setting continuous therapy -KW Pressure Setting 125 mmHg -KW 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) - Properties Group Placement Date: 07/03/25 -RS Location: LEFT FOOT -RS Additional Comments: PER MD DARRICK REYNOSO 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) - Properties Group Placement Date: 07/03/25 -RS Location: LEFT FOOT -RS Additional Comments: PER MD DARRICK REYNOSO 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) - Properties Group Placement Date: 07/03/25 -RS Location: LEFT FOOT -RS Additional Comments: PER MD DARRICK REYNOSO Row Name 07/14/25 1006 Plan of [...] = Cosigned By Initials Name Provider Type Margarita Charles RN Registered Nurse Kristan Giordano RN Registered Nurse Henrietta Blakely RN Registered Nurse Ashley Manzanares, PT Physical Therapist Mary Mayes RN Registered Nurse RS Alessandra Gregory, RN Registered Nurse Physical Therapy Education Title: PT OT ELASTIC YARN TWISTER HELPER Therapies (Done) Topic: Physical Therapy (Done) Point: [...] Dates Name Provider Type Discipline 02/26/21 - Mirela Hsu, PT Physical Therapist [...] Calculation Start Time 1006 -KW Untimed Charges 97344-Idl Pressure wound to 50 sqcm 10 -KW Total Minutes Untimed Charges Total Minutes 10 -KW Total Minutes 10 -KW User Llanes (r) = Recorded By, (t) = Taken By, (c) = Cosigned By Initials Name Provider Type Ashley Manzanares, PT Physical Therapist Therapy Charges for Today Code Description Service Date Service Provider Modifiers Qty [id number] HC PT NEG PRESS WOUND TO 50SQCM [...] associated with indwelling urethral catheter, initial encounter T83.439F370.64 N39.0 599.0 4. Diarrhea, unspecified type R19.7 [...] of migraine headaches 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 Left leg cellulitis [...] TIBIAL ANGIOPLASTY; Surgeon: Archie Olvera MD; Location: [facility]; Service: Vascular; Laterality: N/A; CONTRAST: 50 ML, FT: 2 MIN 54 SEC, DOSE: 66 MGY. AORTOGRAM Left 07/03/2025 Procedure: ARTERIOGRAM LOWER EXTREMITY; Surgeon: Vaughn Hollingsworth DO; Location: [facility]; Service: Vascular; Laterality: Left; FT-6MINS [...] FILTER PLACEMENT; Surgeon: Pedro Zapien MD; Location: [facility]; Service: Interventional Radiology INTERVENTIONAL RADIOLOGY PROCEDURE Left 09/07/2024 Procedure: LEFT peroneal arteriovenous fistula embolization - Right femoral access; Surgeon: Jared Marcano MD; Location: [facility]; Service: Cardiovascular; Laterality: Left; Please coordinate with Gautam Patel ([facility] [phone] who will bring coils LUMBAR DISCECTOMY N/A [...] functional deficit;physical barrier -CHRISTA Row Name 07/13/25 143 Cognition Orientation Status (Cognition) oriented x 3;other [...] Cosigned By Initials Name Provider Type CHRISTA Mora, Fátima Ivone, OT Occupational Therapist Lymphedema Row Name 07/13/25 [...] spandage to secur. -MF Recorded by [MF] Duglas Mayes, PT User Llanes (r) = Recorded By, (t) = Taken By, (c) = Cosigned By Initials Name Effective Dates Duglas Mayes, PT 10/16/22 - Mobility/ADL's Row Name 07/13/25 1434 Bed Mobility Rolling Left Preston (Bed Mobility) standby assist -CHRISTA Rolling Right Preston (Bed Mobility) standby assist;minimum assist (75% patient effort) pt. started SBA and last roll as fatigued to min A -CHRISTA Scooting/Bridging Preston (Bed Mobility) standby assist -CHRISTA Supine-Sit Preston (Bed Mobility) standby assist -CHRISTA Sit-Supine Preston (Bed Mobility) standby assist -CHRISTA Bed Mobility, [...] Transfers bed-chair transfer -CHRISTA Row Name 07/13/25 1434 Bed-Chair Transfer Bed-Chair Preston (Transfers) moderate assist (50% patient effort);dependent (less [...] Name 07/13/25 1434 Upper Body Dressing Assessment/Training Preston Level (Upper Body Dressing) doff;don;moderate assist (50% patient effort) - Position (Upper Body Dressing) supine - Comment, (Upper Body Dressing) soiled gown changed out, pt. limited by lines and positionting - Row Name 07/13/25 1434 Toileting Assessment/Training Preston Level (Toileting) dependent (less than 25% patient [...] midline with resistance - Row Name 07/13/25 143 Motor Skills Therapeutic Exercise shoulder;elbow/forearm - Row Name 07/13/25 1439 Balance Static Sitting Balance supervision - Dynamic Sitting Balance standby assist -CHRISTA Position, Sitting Balance unsupported;sitting edge of bed - Balance Interventions weight shifting activity -CHRISTA Comment, [...] OT) rolling to left;rolling to right -CHRISTA Preston Level/Cues Needed (Bed Mobility Goal 1, OT) minimum assist (75% or more patient effort);verbal cues required;nonverbal cues (demo/gesture) required -CHRISTA Time Frame (Bed Mobility Goal 1, OT) exterminator goal (LTG);10 days -CHRISTA Progress/Outcomes (Bed Mobility Goal 1, OT) goal met -CHRISTA Row Name 07/13/251443 Transfer Goal 1 (OT) Activity/Assistive Device (Transfer Goal 1, OT) [id number]-ltwof/aodys-kj-bpl -CHRISTA Preston Level/Cues Needed (Transfer Goal 1, OT) moderate assist (50-74% patient effort) -CHRISTA Progress/Outcome (Transfer Goal 1, OT) good progress toward goal;goal ongoing -CHRISTA Row Name 07/13/251443 Bathing Goal 1 (OT) Activity/Device (Bathing Goal 1, OT) upper body bathing -CHRISTA Preston Level/Cues Needed (Bathing Goal 1, OT) minimum assist (75% or more patient effort);set-up required -CHRISTA Time Frame (Bathing Goal 1, OT) short term goal (STG);5 days -CHRISTA Progress/Outcomes (Bathing Goal 1, OT) goal ongoing -CHRISTA Row Name 07/13/25 Toileting Goal 1 (OT) Activity/Device (Toileting Goal 1, OT) adjust/manage clothing;perform perineal hygiene;commode, bedside with drop arms -CHRISTA Preston Level/Cues Needed (Toileting Goal 1, OT) moderate assist (50-74% patient effort) -CHRISTA Time Frame (Toileting Goal 1, OT) short term goal (STG);5 days -CHRISTA Progress/Outcome (Toileting Goal 1, OT) goal no longer appropriate -CHRISTA Row Name 07/13/250 Strength Goal 1 (OT) Strength Goal 1 (OT) Pt. will completed UE and core TE with progressive reps and resistance to support ADL and transfer independence. -CHRISTA Time Frame (Strength Goal 1, OT) exterminator goal (LTG);10 days -CHRISTA Progress/Outcome (Strength Goal 1, OT) continuing progress toward goal;goal ongoing -CHRISTA User Llanes (r) = Recorded By, (t) = Taken By, (c) = Cosigned By Initials Name Provider Type CHRISTA Fátima Mora, OT Occupational Therapist Clinical Impression Row Name 07/13/25 144 Pain Assessment Pretreatment Pain Rating 04/22 -CHRISTA Posttreatment Pain Rating 04/22 -CHRISTA Pain Location buttock -CHRISTA Pain Side/Orientation bilateral -CHRISTA Pain Management Interventions positioning techniques utilized -CHRISTA Response to Pain Interventions activity participation with tolerable pain -CHRISTA Pre/Posttreatment Pain Comment pt. was cleaned in supine with new banages placed to protect buttocks with slide -CHRISTA Row Name 07/13/25 144 Plan of Care Review Plan of Care [...] and UE TE. -CHRISTA Row Name 07/13/25 144 Therapy Assessment/Plan (OT) Rehab Potential (OT) fair -CHRISTA Therapy Frequency (OT) daily -CHRISTA Row Name 07/13/25 1441 Therapy Plan Review/Discharge Plan (OT) Anticipated Discharge Disposition (OT) senior living facility -CHRISTA Row Name 07/13/25 1441 Vital [...] Move to Chair/Commode-4 -SB Row Name 07/13/25 1447 Functional Assessment Outcome Measure Options AM-PAC 6 Clicks Daily Activity (OT) -CHRISTA User Llanes (r) = Recorded By, (t) = Taken By, (c) = Cosigned By Initials Name Provider Type Fátima Castle, OT Occupational Therapist Iggy Thakur, JESSEE Registered Nurse Occupational Therapy Education Title: PT OT ELASTIC YARN TWISTER HELPER Therapies (Done) Topic: Occupational Therapy (Done) Point: ADL training (Done) Learning Progress Summary Patient Acceptance, E,D, VU,NR by CHRISTA at 07/13/2025 1446 Comment: transfer safety with lines and wounds, w/c brake use, UE TE Acceptance, E, VU,NR by JB1 at 07/10/2025 1624 Comment: OT POC; half-way goals; rehab potential; discharge planning Point: Home [...] - Fátima Mora, OT Occupational Therapist OT [facility] 02/26/21 - Juani Clark OT Occupational [...] Time Calculation: Time Calculation- OT Row Name 07/13/251445 Time Calculation- OT OT Start Time 1305 -CHRISTA OT Received On 07/13/25 -CHRISTA OT Goal Re-Cert Due Date 07/15/25 -CHRISTA Timed Charges 76129 - OT Therapeutic Exercise Minutes 15 -CHRISTA 48028 - OT Therapeutic Activity Minutes 15 -CHRISTA 76372 - OT Self Care/Mgmt Minutes 15 -CHRISTA Total Minutes Timed Charges Total Minutes 45 -CHRISTA Total Minutes 45 -CHRISTA User Llanes (r) = Recorded By, (t) = Taken By, (c) = Cosigned By Initials Name Provider Type Fátima Castle OT Occupational Therapist Therapy Charges for Today Code Description Service Date Service Provider Modifiers Qty [id number] OT THER PROC EA 15 MIN 07/13/2025 Fátima Mora OT GO 1 [id number] OT THERAPEUTIC ACT EA 15 MIN 07/13/2025 Fátima Mora OT GO 1 [id number] OT SELF CARE/MGMT/TRAIN EA 15 MIN 07/13/2025 Fátima Mora OT GO 1 Fátima Mora OT 07/13/2025 1447 documented in this encounter Discharge Instructions * Attachments The following attachments cannot be sent through Care Everywhere. * Acetaminophen Capsules or Tablets ([place]) * Apixaban Tablets ([place]atem[place]) * Clopidogrel Tablets ([place]atem[place]) * Famotidine Tablets ([place]) * Naloxone Nasal [place] ([place]) * Oxycodone Capsules or Tablets ([place]) * Ziprasidone Capsules ([place]) documented in this encounter Medications at Time [...] MG/0.1ML nasal spray Call 911. Don't prime. [place] in 1 nostril for overdose. Repeat in [...] 18 tablet 08/01/2025 2:24 PM EST 08/01/2025 documented as of this encounter Progress Notes * Carolina Sargent II, DO - 08/02/2025 7:41 AM EST Patient did not leave hospital due to EMS transport delay. [facility] no [facility] him and he refuses to search outside of [place], no other option other than to d/c home. He refuses hospice even though he is aware he is high risk of ongoing life threatening infection. Patient on phone with someone and will not hang up to speak with me. No medical changes, no changes to d/c as planned yesterday. * Stacey Garcia RN - 07/31/2025 4:29 PM EST Continued Stay Note [facility] Patient Name: Trung Pool Today's Date: 07/31/2025 Admit Date: 06/25/2025 Plan: Home with Home Healt Discharge Plan Row Name 07/31/25 1628 Plan Plan Home with Home Health Plan Comments Noted in complex case manager's note that pt has opted to go home with home health and the medicaid waiver. Will close the hospice referral. Please call [phone] if can be of further assistance. Row Name 07/31/25 1530 Plan Plan Plan Comments Final Discharge Disposition Code Discharge Codes No documentation. Expected Discharge Date and Time Expected Discharge Date Expected Discharge Time Jul 30, 2025 Stacey Garcia RN * Samia Barnes RN - 07/31/2025 3:44 PM EST Continued Stay Note [facility] Patient Name: rTung Pool Today's Date: 07/31/2025 Admit Date: 06/25/2025 Plan: Ongoing Discharge Plan Row Name 07/31/25 1530 Plan Plan Ongoing Plan Comments Long discussion with patient regarding disposition,as [facility] has not offerred bed as has no other facility that patient agreed to. Discussed need to expand facility search to [facility] and Mr. Pool is not agreeable to this. We then discussed discharge home with home health and waiver services and he is agreeable. Contacted patients sr community manager, Susie [phone], who states she will notify patients waiver services through [facility] and try and increase his aide from 2 days/week to 3 days/week. She also reports that he has ahospital bed with trapeze, electric wheelchair and bedside commode for use at home. Contacted patient's home health agency, [facility], [place] [phone], who states they can provide senior living, PT and OT. Notified Palliative Care, Marialuisa [...] from the original note were not included. [facility] Medicine Services PROGRESS NOTE Patient Name: Trung [...] Urine Culture - Urine, Indwelling Urethral Catheter [[id number]] (Abnormal) Collected: 07/14/2552 Lab Status: Final result Specimen: Urine from Indwelling Urethral Catheter Updated: 07/15/25 1329 Urine Culture Yeast isolated Narrative: No further workup for yeast Colonization of the urinary tract without infection is common. Treatment is discouraged unless the patient is symptomatic, , or undergoing an invasive urologic procedure. Urine Culture - Urine, Indwelling Urethral Catheter [[id number]] (Abnormal) (Susceptibility) Collected: 06/25/252000 Lab Status: Final [...] Resistant Blood Culture - Blood, Hand, Right [[id number]] (Abnormal) (Susceptibility) Collected: 06/25/252029 Lab Status: Edited [...] report. Wound Culture - Swab, Foot, Left [[id number]] (Abnormal) (Susceptibility) Collected: 06/25/251817 Lab Status: Final [...] Culture ID, PCR - Blood, Hand, Right [[id number]] (Abnormal) Collected: 06/25/252029 Lab Status: Final result Specimen: Blood from Hand, Right Updated: 06/26/252101 BCID, PCR Enterococcus faecium. Zee/B (vancomycin resistance gene) not detected. Identification byBCID2 PCR. BOTTLE TYPE Anaerobic Bottle Narrative: Infectious disease consultation is highly recommended to rule out distant foci of infection. MRSA Screen, PCR (Inpatient) - Swab, Nares [[id number]] (Abnormal) Collected: 06/26/2545 Lab Status: Final result Specimen: Swab from Nares Updated: 06/26/25 0850 MRSA PCR Positive Narrative: The negative predictive value of this diagnostic test is high and should only be used to consider de-escalating anti-MRSA therapy. A positive result may indicate colonization with MRSA and must be correlated clinically. Gastrointestinal Panel, PCR - Stool, Per Rectum [[id number]] (Abnormal) Collected: 06/26/2545 Lab Status: Final result [...] Clostridioides difficile Toxin - Stool, Per Rectum [[id number]] (Abnormal) Collected: 06/26/2545 Lab Status: Final result Specimen: Stool from Per Rectum Updated: 06/26/25 5680 Narrative: The following orders were created for panel order Clostridioides difficile Toxin - Stool, Per Rectum. Procedure Abnormality Status --------- ------ Clostridioides difficile...[[id number]] Abnormal Final result Please view results for these tests on the individual orders. Clostridioides difficile Toxin, PCR - Stool, Per Rectum [[id number]] (Abnormal) Collected: 06/26/25 0046 Lab Status: Final [...] disease) [I73.9] Yes 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 [I25.10] Yes Seizure [...] obesity and chronic debility. Last admitted to [facility] 06/02-06/11/25 for LLE cellulitis with failure of outpatient treatment. Wound cultures grew Proteus and concern for ESBL per lab and MRSA. He completed 7 days of IV abx prior to DC home. He has declined LLE amputation He returned to [facility] ED on 06/25/25 for evaluation of hematuria, [...] stenosis in the left SFA, the left HCIP appears to be occluded filling via collaterals [...] - Needs OP referral to [place]rology at [place] for long-term management pending [facility] - continue methenamine Diarrhea Norovirus / [...] 07/30/2025 5:57 PM EST Continued Stay Note [facility] Patient Name: Trung Pool Today's Date: 07/30/2025 Admit Date: 06/25/2025 Plan: Placement Discharge Plan Row Name 07/30/25 8276 Plan Plan Placement Plan Comments patient relations liaison continues to follow on the periphery while placement is found. Pleasecall [phone] if can be of further assistance. Discharge Codes No documentation. Expected Discharge Date and Time Expected Discharge Date Expected Discharge Time Jul 30, 2025 Stacey Garcia RN * Talisha Resendez APRN - 07/30/2025 3:05 PM EST Reviewed chart. Ongoing comfort measures, patient tolerating PO. Awaiting disposition. Will continue to follow. * Samia Barnes, RN - 07/30/2025 11:24 AM EST Continued Stay Note [facility] Patient Name: Trung Pool Today's Date: 07/30/2025 Admit Date: 06/25/2025 Plan: Ongoing Discharge Plan Row Name 07/30/25 1121 Plan Plan Ongoing Plan Comments Spoke with patient at bedside today and Mr. Pool states that he wants to go to a facility for short term rehab and then return home. [facility] is his first choice but not in network with his Medicare Advantage plan. Have faxed referral to [facility] in [place] as patient states this is also close to his home. Case Management will also begin contacting other facilities to assess bed availablitlity and will update with progress. Final Discharge Disposition Code 03 - senior living facility (SNF) Discharge Codes No documentation. Expected Discharge Date and Time Expected Discharge Date Expected Discharge Time Jul 30, 2025 Samia Barnes RN * Carolina Sargent II, DO - 07/30/2025 9:13 AM EST Images from the original note were not included. [facility] PROGRESS NOTE Patient Name: Trung [...] Urine Culture - Urine, Indwelling Urethral Catheter [[id number]] (Abnormal) Collected: 07/14/2552 Lab Status: Final result Specimen: Urine from Indwelling Urethral Catheter Updated: 07/15/25 1329 Urine Culture Yeast isolated Narrative: No further workup for yeast Colonization of the urinary tract without infection is common. Treatment is discouraged unless the patient is symptomatic, , or undergoing an invasive urologic procedure. Urine Culture - Urine, Indwelling Urethral Catheter [[id number]] (Abnormal) (Susceptibility) Collected: 06/25/252000 Lab Status: Final [...] Resistant Blood Culture - Blood, Hand, Right [[id number]] (Abnormal) (Susceptibility) Collected: 06/25/252029 Lab Status: Edited [...] report. Wound Culture - Swab, Foot, Left [[id number]] (Abnormal) (Susceptibility) Collected: 06/25/25 181 Lab Status: [...] Culture ID, PCR - Blood, Hand, Right [[id number]] (Abnormal) Collected: 06/25/252029 Lab Status: Final result Specimen: Blood from Hand, Right Updated: 06/26/252101 BCID, PCR Enterococcus faecium. Zee/B (vancomycin resistance gene) not detected. Identification byBCID2 PCR. BOTTLE TYPE Anaerobic Bottle Narrative: Infectious disease consultation is highly recommended to rule out distant foci of infection. MRSA Screen, PCR (Inpatient) - Swab, Nares [[id number]] (Abnormal) Collected: 06/26/2545 Lab Status: Final result Specimen: Swab from Nares Updated: 06/26/25 0850 MRSA PCR Positive Narrative: The negative predictive value of this diagnostic test is high and should only be used to consider de-escalating anti-MRSA therapy. A positive result may indicate colonization with MRSA and must be correlated clinically. Gastrointestinal Panel, PCR - Stool, Per Rectum [[id number]] (Abnormal) Collected: 06/26/2545 Lab Status: Final result [...] Clostridioides difficile Toxin - Stool, Per Rectum [[id number]] (Abnormal) Collected: 06/26/2545 Lab Status: Final result Specimen: Stool from Per Rectum Updated: 06/26/25754 Narrative: The following orders were created for panel order Clostridioides difficile Toxin - Stool, Per Rectum. Procedure Abnormality Status --------- ------ Clostridioides difficile...[[id number]] Abnormal Final result Please view results for these tests on the individual orders. 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 Last admitted to [facility] 06/02-06/11/25 for LLE cellulitis with failure of outpatient treatment. Wound cultures grew Proteus and concern for ESBL per lab and MRSA. He completed 7 days of IV abx prior to DC home. He has declined LLE amputation He returned to [facility] ED on 06/25/25 for evaluation of hematuria, [...] - Needs OP referral to urology at [place] for long-term management pending GOC - continue [...] from the original note were not included. [facility] Services PROGRESS NOTE Patient Name: Trung [...] Urine Culture - Urine, Indwelling Urethral Catheter [[id number]] (Abnormal) Collected: 07/14/2552 Lab Status: Final result Specimen: Urine from Indwelling Urethral Catheter Updated: 07/15/25 1329 Urine Culture Yeast isolated Narrative: No further workup for yeast Colonization of the urinary tract without infection is common. Treatment is discouraged unless the patient is symptomatic, , or undergoing an invasive urologic procedure. Urine Culture - Urine, Indwelling Urethral Catheter [[id number]] (Abnormal) (Susceptibility) Collected: 06/25/252000 Lab Status: Final [...] Resistant Blood Culture - Blood, Hand, Right [[id number]] (Abnormal) (Susceptibility) Collected: 06/25/252029 Lab Status: Edited [...] report. Wound Culture - Swab, Foot, Left [[id number]] (Abnormal) (Susceptibility) Collected: 06/25/25 1818 Lab Status: [...] Culture ID, PCR - Blood, Hand, Right [[id number]] (Abnormal) Collected: 06/25/25 2030 Lab Status: Final result Specimen: Blood from Hand, Right Updated: 06/26/252101 BCID, PCR Enterococcus faecium. Zee/B (vancomycin resistance gene) not detected. Identification byBCID2 PCR. BOTTLE TYPE Anaerobic Bottle Narrative: Infectious disease consultation is highly recommended to rule out distant foci of infection. MRSA Screen, PCR (Inpatient) - Swab, Nares [[id number]] (Abnormal) Collected: 06/26/2545 Lab Status: Final result Specimen: Swab from Nares Updated: 06/26/25 0850 MRSA PCR Positive Narrative: The negative predictive value of this diagnostic test is high and should only be used to consider de-escalating anti-MRSA therapy. A positive result may indicate colonization with MRSA and must be correlated clinically. Gastrointestinal Panel, PCR - Stool, Per Rectum [[id number]] (Abnormal) Collected: 06/26/2545 Lab Status: Final result [...] Clostridioides difficile Toxin - Stool, Per Rectum [[id number]] (Abnormal) Collected: 06/26/2545 Lab Status: Final result Specimen: Stool from Per Rectum Updated: 06/26/25 5777 Narrative: The following orders were created for panel order Clostridioides difficile Toxin - Stool, Per Rectum. Procedure Abnormality Status --------- ------ Clostridioides difficile...[[id number]] Abnormal Final result Please view results for these tests on the individual orders. 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 Last admitted to [facility] 06/02-06/11/25 for LLE cellulitis with failure of outpatient treatment. Wound cultures grew Proteus and concern for ESBL per lab and MRSA. He completed 7 days of IV abx prior to DC home. He has declined LLE amputation He returned to [facility] ED on 06/25/25 for evaluation of hematuria, [...] intermittent situation confusion/ forgetfulness per sister - douglasalicia nightly/ prn not used LLE Wound Infection [...] - Needs OP referral to urology at [place] for long-term management pending GOC - continue [...] from the original note were not included. [facility] Services PROGRESS NOTE Patient Name: Trung Pool : 1955 Date of Admission: 06/25/2025 Primary Care Physician: Gustavo Mehta MD Subjective CC: f/u LLE HPI: No new issues overnight States he is antsy like I am getting ready to get out of long-term Objective Vital Signs: Temp: [97 ??F (36.1 [...] Urine Culture - Urine, Indwelling Urethral Catheter [[id number]] (Abnormal) Collected: 07/14/2552 Lab Status: Final result Specimen: Urine from Indwelling Urethral Catheter Updated: 07/15/25 1329 Urine Culture Yeast isolated Narrative: No further workup for yeast Colonization of the urinary tract without infection is common. Treatment is discouraged unless the patient is symptomatic, , or undergoing an invasive urologic procedure. Urine Culture - Urine, Indwelling Urethral Catheter [[id number]] (Abnormal) (Susceptibility) Collected: 06/25/252000 Lab Status: Final [...] Resistant Blood Culture - Blood, Hand, Right [[id number]] (Abnormal) (Susceptibility) Collected: 06/25/252029 Lab Status: Edited [...] report. Wound Culture - Swab, Foot, Left [[id number]] (Abnormal) (Susceptibility) Collected: 06/25/25 1818 Lab Status: [...] Culture ID, PCR - Blood, Hand, Right [[id number]] (Abnormal) Collected: 06/25/25 2030 Lab Status: Final result Specimen: Blood from Hand, Right Updated: 06/26/252101 BCID, PCR Enterococcus faecium. Zee/B (vancomycin resistance gene) not detected. Identification byBCID2 PCR. BOTTLE TYPE Anaerobic Bottle Narrative: Infectious disease consultation is highly recommended to rule out distant foci of infection. MRSA Screen, PCR (Inpatient) - Swab, Nares [[id number]] (Abnormal) Collected: 06/26/25 0046 Lab Status: Final result Specimen: Swab from Nares Updated: 06/26/25 0850 MRSA PCR Positive Narrative: The negative predictive value of this diagnostic test is high and should only be used to consider de-escalating anti-MRSA therapy. A positive result may indicate colonization with MRSA and must be correlated clinically. Gastrointestinal Panel, PCR - Stool, Per Rectum [[id number]] (Abnormal) Collected: 06/26/2545 Lab Status: Final result [...] Clostridioides difficile Toxin - Stool, Per Rectum [[id number]] (Abnormal) Collected: 06/26/2545 Lab Status: Final result Specimen: Stool from Per Rectum Updated: 06/26/25754 Narrative: The following orders were created for panel order Clostridioides difficile Toxin - Stool, Per Rectum. Procedure Abnormality Status --------- ------ Clostridioides difficile...[[id number]] Abnormal Final result Please view results for these tests on the individual orders. Clostridioides difficile Toxin, PCR - Stool, Per Rectum [[id number]] (Abnormal) Collected: 06/26/2545 Lab Status: Final result [...] disease) [I73.9] Yes 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 [I25.10] Yes Seizure [...] obesity and chronic debility. Last admitted to [facility] 06/02-06/11/25 for LLE cellulitis with failure of outpatient treatment. Wound cultures grew Proteus and concern for ESBL per lab and MRSA. He completed 7 days of IV abx prior to DC home. 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 Called Zhane watson, at 1514 and long discussion regarding inpatient [...] from the original note were not included. [facility] PROGRESS NOTE Patient Name: Trung [...] Urine Culture - Urine, Indwelling Urethral Catheter [[id number]] (Abnormal) Collected: 07/14/2552 Lab Status: Final result Specimen: Urine from Indwelling Urethral Catheter Updated: 07/15/25 1329 Urine Culture Yeast isolated Narrative: No further workup for yeast Colonization of the urinary tract without infection is common. Treatment is discouraged unless the patient is symptomatic, , or undergoing an invasive urologic procedure. Urine Culture - Urine, Indwelling Urethral Catheter [[id number]] (Abnormal) (Susceptibility) Collected: 06/25/252000 Lab Status: Final [...] Resistant Blood Culture - Blood, Hand, Right [[id number]] (Abnormal) (Susceptibility) Collected: 06/25/252029 Lab Status: Edited [...] report. Wound Culture - Swab, Foot, Left [[id number]] (Abnormal) (Susceptibility) Collected: 06/25/258 Lab Status: Final [...] Culture ID, PCR - Blood, Hand, Right [[id number]] (Abnormal) Collected: 06/25/25 2030 Lab Status: Final result Specimen: Blood from Hand, Right Updated: 06/26/252101 BCID, PCR Enterococcus faecium. Zee/B (vancomycin resistance gene) not detected. Identification byBCID2 PCR. BOTTLE TYPE Anaerobic Bottle Narrative: Infectious disease consultation is highly recommended to rule out distant foci of infection. MRSA Screen, PCR (Inpatient) - Swab, Nares [[id number]] (Abnormal) Collected: 06/26/2545 Lab Status: Final result Specimen: Swab from Nares Updated: 06/26/25849 MRSA PCR Positive Narrative: The negative predictive value of this diagnostic test is high and should only be used to consider de-escalating anti-MRSA therapy. A positive result may indicate colonization with MRSA and must be correlated clinically. Gastrointestinal Panel, PCR - Stool, Per Rectum [[id number]] (Abnormal) Collected: 06/26/2545 Lab Status: Final result [...] Clostridioides difficile Toxin - Stool, Per Rectum [[id number]] (Abnormal) Collected: 06/26/2545 Lab Status: Final result Specimen: Stool from Per Rectum Updated: 06/26/25754 Narrative: The following orders were created for panel order Clostridioides difficile Toxin - Stool, Per Rectum. Procedure Abnormality Status --------- ------ Clostridioides difficile...[[id number]] Abnormal Final result Please view results for these tests on the individual orders. 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 Last admitted to [facility] 06/02-06/11/25 for LLE cellulitis with failure of outpatient treatment. Wound cultures grew Proteus and concern for ESBL per lab and MRSA. He completed 7 days of IV abx prior to DC home. He has declined LLE amputation He returned to [facility] ED on 06/25/25 for evaluation of hematuria, [...] - Needs OP referral to urology [place] for long-term management pending [facility] Diarrhea Norovirus / C. Diff colonization [...] present. AM-PAC 6 Clicks Score (PT): 11 (07/26/25 194) CODE STATUS: Code Status and Medical Interventions: [...] - 07/27/2025 8:15 AM EST Trung Martinez [facility] 1955 [id number] Evaluating Physician: Duglas Andres MD Chief Complaint: [...] excoriation/crusted areas at the toes, hospitalized at [facility] June 04 untilSe2022 and discharged with oral antibiotics for left lower extremity cellulitis; he alsohas nonhealing wounds at his buttocks 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 Admitted to [facility] June 13 2023 diagnosis of sepsis per admission notes, left lower extremity cellulitis with pressure injury at buttocks. 06/15/24 Dr Colón saw and recommended amputation; patient refused ; see his note for detail 06/17/23 Dr buenrostro discussed potential options for heel debridement with patient; MRI no osteomyelitis per radiology; taken to OR PROCEDURE: Left 34436: Debridement of skin and subcutaneous tissue 44190: wound vacuum-assisted closure, wound measuring 2.5 cm [...] 07/25/[address] Buenrostro PROCEDURE: Left 67957: Debridement of skin and subcutaneous tissue 84244: Wound vacuum-assisted closure culture data with MRSA/aneta. [...] to left CHIP per vascular team d/w ut Procedure/CPT?? Codes: Procedure(s): LLE arteriogram with run-off possible intervention 01/28/24 Dr. 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 Faust in [place] and has seen Dr Oneal (ID in [place]); he is not a good historian with respect to detail. Reports having had some further surgery to the left foot although he is unable to clarify specific date/procedure. Culture at [facility] August 07, 2024 from left foot wound with ESBL Klebsiella pneumoniae and pseudomonas aeruginosa (microbiology lab there reports the Pseudomonas is sensitive to Merrem). He reports his outpatient practitioners had recommended admission to the hospital for IV antibiotics but patient had refused at that time. He also reports that he was in the emergency room at [facility] mid August, no cultures done at that time. Patient reports practitioners at [facility] had recommended higher level amputation but patient has continued to refuse that. He was readmitted to [facility] on August 31, 2024 with worsening odor/drainage andredness/pain to the left lower extremity in recent days/weeks. He reports having been taking outpatient Levaquin; prior history MRSA/PSA and ESBL organisms 09/04/24 Dr Marcano. Procedure/CPT?? Codes: RIGHT AFTER SCHOOL TEACHER access - ultrasound guided Aortogram with LEFT lower extremity run-off LEFT PT angioplasty ([id number] Nanocross) LEFT plantar angioplasty ([id number] Nanocross, 2.5w218tx UltraverseRx) LEFT AT angioplasty ([id number] Nanocross, 2.6q561nt UltraverseRx) LEFT DP angioplasty ([id number] Nanocross, 2.1b498hw UltraverseRx) RIGHT AFTER SCHOOL TEACHER closure (Angioseal) 09/07/24 Dr Marcano Procedure/CPT?? Codes: RIGHT AFTER SCHOOL TEACHER access - ultrasound guided Aortogram with LEFT lower extremity run-off LEFT Pr AVF embolization RIGHT AFTER SCHOOL TEACHER closure 09/09/24 moved to ICU overnight with [...] femoral artery and left popliteal artery 6 [place] Angio-Seal closure of right common femoral arteriotomy [...] LEFT; Surgeon: Cecil Buenrostro Jr., MD; Location: [facility] OR; Service: Orthopedics; Laterality: Left; ANTERIOR CERVICAL DISCECTOMY W/ FUSION Bilateral 07/17/2020 Procedure: Cervical discectomy anterior with fusion C3-4; Surgeon: Tyree Tan MD; Location: [facility] OR; Service: Neurosurgery; Laterality: Bilateral; AORTOGRAM N/A 01/26/2024 Procedure: ABDOMINAL AORTIC ANGIOGRAM, LLE ANGIOGRAM, LEFT ANTERIOR TIBIAL ATHERECTOMY, LEFT ANTERIOR TIBIAL ANGIOPLASTY; Surgeon: Archie Olvera MD; Location: [facility]; Service: Vascular; Laterality: N/A; CONTRAST: 50 ML, FT: 2 MIN 54 SEC, DOSE: 66 MGY. AORTOGRAM Left 07/03/2025 Procedure: ARTERIOGRAM LOWER EXTREMITY; Surgeon: Vaughn Hollingsworth DO; Location: [facility]; Service: Vascular; Laterality: Left; FT-6MINS 24SEC 140 MGY CONTRAST -15ML BACK SURGERY FOR DISC HERNIATION CARDIAC CATHETERIZATION CARDIAC CATHETERIZATION N/A 09/04/2024 Procedure: Peripheral angiography - Left lower extremity angio - Right femoral access; Surgeon: Jared Marcano MD; Location: [facility] CATH INVASIVE LOCATION; Service: Peripheral Vascular; Laterality: [...] Laterality: Left; Please coordinate with Gautam Patel ([facility] [phone] who will bring coils LUMBAR DISCECTOMY N/A [...] MBP Status: Discontinued Ordering Provider: Osmany Mccann RPH 500 mg [...] VTB Status: Discontinued Ordering Provider: Leonie Esquivel [facility] 1,250 mg 200 mL/hr over 75 Minutes [...] sensitive to Merrem per microbiology lab at [facility]. 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 ; readmission May 2025 and [...] / neuro team; awake/interactive as of my 10/23 visit --noncompliance has remained a barrier to [...] 400-400-40 MG/5ML suspension 15 mL 15 mL [id number] PRN Amanda Bermudez MD [Held by provider] [...] 10 mL Intravenous PRN Ally Jeffers V, CONSTRUCTION COST ESTIMATOR sodium chloride 0.9 % flush 10 mL [...] 07/26/2025 4:01 PM EST Continued Stay Note [facility] Patient Name: Trung Pool Today's Date: 07/26/2025 Admit Date: 06/25/2025 Plan: To be determined Discharge Plan Row Name 07/26/25 1558 Plan Plan To be determined Plan Comments Visit made to pt, pt eating lunch, denies any needs. Pt stated is hopeful can go to along term care facility close to home. patient relations liaison will continue to follow on the periphery while placement is secured for pt. Please call [phone] if can be of further assistance. Discharge Codes No documentation. Expected Discharge Date and Time Expected Discharge Date Expected Discharge Time Jul 30, 2025 Stacey Garcia RN * Talisha Resendez APRN - 07/26/2025 11:41 AM EST Palliative Care Daily Progress Note C/C: Patient awake and pleasant. S: Medical record reviewed. Follow-up visit for GOC and symptom management. Events noted. Patient awake and alert, pleasant. He is ongoing comfort measures and planning to go to [facility] with hospice. Taking PO pain medication. [...] hypertension Seizure disorder 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 PAD (peripheral artery [...] from the original note were not included. [facility] Services PROGRESS NOTE Patient Name: Trung Pool : 1955 Date of Admission: 06/25/2025 Primary Care Physician: Gustavo Mehta MD Subjective CC: f/u LLE HPI: Patient up in bed. Pain controlled currently. States he took all medication today. Wants to proceedwith outpatient Hospice and [facility] Wants to continue all medication for now. [...] Urine Culture - Urine, Indwelling Urethral Catheter [[id number]] (Abnormal) Collected: 07/14/2552 Lab Status: Final result Specimen: Urine from Indwelling Urethral Catheter Updated: 07/15/25 132 Urine Culture Yeast isolated Narrative: No further workup for yeast Colonization of the urinary tract without infection is common. Treatment is discouraged unless the patient is symptomatic, , or undergoing an invasive urologic procedure. Urine Culture - Urine, Indwelling Urethral Catheter [[id number]] (Abnormal) (Susceptibility) Collected: 06/25/252000 Lab Status: Final [...] Resistant Blood Culture - Blood, Hand, Right [[id number]] (Abnormal) (Susceptibility) Collected: 06/25/252029 Lab Status: Edited [...] report. Wound Culture - Swab, Foot, Left [[id number]] (Abnormal) (Susceptibility) Collected: 06/25/25 1818 Lab Status: [...] Culture ID, PCR - Blood, Hand, Right [[id number]] (Abnormal) Collected: 06/25/252029 Lab Status: Final result Specimen: Blood from Hand, Right Updated: 06/26/252101 BCID, PCR Enterococcus faecium. Zee/B (vancomycin resistance gene) not detected. Identification byBCID2 PCR. BOTTLE TYPE Anaerobic Bottle Narrative: Infectious disease consultation is highly recommended to rule out distant foci of infection. MRSA Screen, PCR (Inpatient) - Swab, Nares [[id number]] (Abnormal) Collected: 06/26/2545 Lab Status: Final result Specimen: Swab from Nares Updated: 06/26/25 0850 MRSA PCR Positive Narrative: The negative predictive value of this diagnostic test is high and should only be used to consider de-escalating anti-MRSA therapy. A positive result may indicate colonization with MRSA and must be correlated clinically. Gastrointestinal Panel, PCR - Stool, Per Rectum [[id number]] (Abnormal) Collected: 06/26/2545 Lab Status: Final result [...] Clostridioides difficile Toxin - Stool, Per Rectum [[id number]] (Abnormal) Collected: 06/26/2545 Lab Status: Final result Specimen: Stool from Per Rectum Updated: 06/26/25754 Narrative: The following orders were created for panel order Clostridioides difficile Toxin - Stool, Per Rectum. Procedure Abnormality Status --------- ------ Clostridioides difficile...[[id number]] Abnormal Final result Please view results for these tests on the individual orders. Clostridioides difficile Toxin, PCR - Stool, Per Rectum [[id number]] (Abnormal) Collected: 06/26/2545 Lab Status: Final result [...] disease) [I73.9] Yes 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 [I25.10] Yes Seizure [...] obesity and chronic debility. Last admitted to [facility] 06/02-06/11/25 for LLE cellulitis with failure of outpatient treatment. Wound cultures grew Proteus and concern for ESBL per lab and MRSA. He completed 7 days of IV abx prior to DC home. He has declined LLE amputation He returned to [facility] ED on 06/25/25 for evaluation of hematuria, [...] - Needs OP referral to urology at [place] for long-term management pending GOC Diarrhea Norovirus [...] MD - 07/26/2025 8:18 AM EST Trung Martinez [facility] 1955 [id number] Evaluating Physician: Duglas Andres MD Chief Complaint: [...] excoriation/crusted areas at the toes, hospitalized at [facility] June 04 untilSe2022 and discharged with oral antibiotics for left lower extremity cellulitis; he alsohas nonhealing wounds at his buttocks 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 Admitted to [facility] June 13 2023 diagnosis of sepsis per admission notes, left lower extremity cellulitis with pressure injury at buttocks. 06/15/24 Dr Colón saw and recommended amputation; patient refused ; see his note for detail 06/17/23 Dr buenrostro discussed potential options for heel debridement with patient; MRI no osteomyelitis per radiology; taken to OR PROCEDURE: Left 79633: Debridement of skin and subcutaneous tissue 69268: wound vacuum-assisted closure, wound measuring 2.5 cm [...] 07/25/[address] Buenrostro PROCEDURE: Left 32260: Debridement of skin and subcutaneous tissue 97177: Wound vacuum-assisted closure culture data with MRSA/aneta. [...] possible intervention 01/28/24 Dr. 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 Faust in [place] and has seen Dr Oneal (ID in [place]); he is not a good historian with respect to detail. Reports having had some further surgery to the left foot although he is unable to clarify specific date/procedure. Culture at [facility] August 07, 2024 from left foot wound with ESBL Klebsiella pneumoniae and pseudomonas aeruginosa (microbiology lab there reports the Pseudomonas is sensitive to Merrem). He reports his outpatient practitioners had recommended admission to the hospital for IV antibiotics but patient had refused at that time. He also reports that he was in the emergency room at [facility] mid August, no cultures done at that time. Patient reports practitioners at [facility] had recommended higher level amputation but patient has continued to refuse that. He was readmitted to [facility] on August 31, 2024 with worsening odor/drainage andredness/pain to the left lower extremity in recent days/weeks. He reports having been taking outpatient Levaquin; prior history MRSA/PSA and ESBL organisms 09/04/24 Dr Marcano. Procedure/CPT?? Codes: RIGHT AFTER SCHOOL TEACHER access - ultrasound guided Aortogram with LEFT lower extremity run-off LEFT PT angioplasty ([id number] Nanocross) LEFT plantar angioplasty ([id number] Nanocross, 2.1u225je UltraverseRx) LEFT AT angioplasty (7p843kw Nanocross, 2.2v610qv UltraverseRx) LEFT DP angioplasty ([id number] Nanocross, 2.6r123ng UltraverseRx) RIGHT AFTER SCHOOL TEACHER closure (Angioseal) 09/07/24 Dr Marcano Procedure/CPT?? Codes: RIGHT AFTER SCHOOL TEACHER access - ultrasound guided Aortogram with LEFT lower extremity run-off LEFT Pr AVF embolization RIGHT AFTER SCHOOL TEACHER closure 09/09/24 moved to ICU overnight with [...] femoral artery and left popliteal artery 6 [place] Angio-Seal closure of right common femoral arteriotomy [...] Cecil Buenrostro Jr., MD; Location: [facility]; Service: Orthopedics; Laterality: Left; ANTERIOR CERVICAL DISCECTOMY W/ FUSION Bilateral 07/17/2020 Procedure: Cervical discectomy anterior with fusion C3-4; Surgeon: Tyree Tan MD; Location: [facility]; Service: Neurosurgery; Laterality: Bilateral; AORTOGRAM N/A 01/26/2024 Procedure: ABDOMINAL AORTIC ANGIOGRAM, LLE ANGIOGRAM, LEFT ANTERIOR TIBIAL ATHERECTOMY, LEFT ANTERIOR TIBIAL ANGIOPLASTY; Surgeon: Archie Olvera MD; Location: [facility]; Service: Vascular; Laterality: N/A; CONTRAST: 50 ML, FT: 2 MIN 54 SEC, DOSE: 66 MGY. AORTOGRAM Left 07/03/2025 Procedure: ARTERIOGRAM LOWER EXTREMITY; Surgeon: Vaughn Hollingsworth DO; Location: [facility]; Service: Vascular; Laterality: Left; FT-6MINS 24SEC 140 MGY CONTRAST -15ML BACK SURGERY FOR DISC HERNIATION CARDIAC CATHETERIZATION CARDIAC CATHETERIZATION N/A 09/04/2024 Procedure: Peripheral angiography - Left lower extremity angio - Right femoral access; Surgeon: Jared Marcano MD; Location: [facility]; Service: Peripheral Vascular; Laterality: N/A; CORONARY ANGIOPLASTY WITH STENT PLACEMENT stent x 1 INCISION AND DRAINAGE FOOT Left 06/17/2023 Procedure: LEFT FOOT DEBRIDEMENT WOUND VACUUM ASSISTED CLOSURE; Surgeon: Cecil Buenrostro Jr., MD;Location: [facility]; Service: Orthopedics; Laterality: Left; INCISION AND DRAINAGE LEG Left 07/25/2023 Procedure: INCISION AND DRAINAGE HEEL, WOUND VAC; Surgeon: Cecil Buenrostro Jr., MD; Location: [facility]; Service: Orthopedics; Laterality: Left; INCISION AND DRAINAGE LEG Left 07/03/2025 Procedure: DEBRIDEMENT WOUND, PLACEMENT OF WOUND VAC; Surgeon: Vaughn Hollingsworth DO; Location: [facility]; Service: Vascular; Laterality: Left; INTERVENTIONAL RADIOLOGY PROCEDURE N/A 05/02/2019 Procedure: IVC FILTER PLACEMENT; Surgeon: Pedro Zapien MD; Location: [facility]; Service: Interventional Radiology INTERVENTIONAL RADIOLOGY PROCEDURE Left 09/07/2024 Procedure: LEFT peroneal arteriovenous fistula embolization - Right femoral access; Surgeon: Jared Marcano MD; Location: [facility]; Service: Cardiovascular; Laterality: Left; Please coordinate with Gautam Patel ([facility]) [phone] who will bring coils LUMBAR DISCECTOMY N/A 05/03/2019 Procedure: THORACIC LAMINECTOMY T11-12; Surgeon: Tyree Tan MD; Location: [facility]; Service: Neurosurgery Pediatric History Patient Parents [...] vancomycin (VANCOCIN) capsule 125 mg Ordering Provider: aVughn Hollingsworth DO Placed in Followed by [facility] 125 mg Oral 3 Times [...] Oral 2 Times Daily With Meals 06/26/25 0806/25/25 230 piperacillin-tazobactam (ZOSYN) 3.375 g IVPB in [...] sensitive to Merrem per microbiology lab at [facility]. 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 ; readmission May 2025 and [...] 400-400-40 MG/5ML suspension 15 mL 15 mL [id number] PRN Amanda Bermudez MD [Held by provider] [...] 10 mL Intravenous PRN Ally Jeffers V, CONSTRUCTION COST ESTIMATOR sodium chloride 0.9 % flush 10 mL [...] IVPB-VTB 1,000 mg Intravenous Q12H Osmany Mccann, [facility] 250 mL/hr at 07/01/252142 1,000 mg at [...] from the original note were not included. [facility] Medicine Services PROGRESS NOTE Patient Name: Trung [...] Urine Culture - Urine, Indwelling Urethral Catheter [[id number]] (Abnormal) Collected: 07/14/2552 Lab Status: Final result Specimen: Urine from Indwelling Urethral Catheter Updated: 07/15/25 1329 Urine Culture Yeast isolated Narrative: No further workup for yeast Colonization of the urinary tract without infection is common. Treatment is discouraged unless the patient is symptomatic, , or undergoing an invasive urologic procedure. Urine Culture - Urine, Indwelling Urethral Catheter [[id number]] (Abnormal) (Susceptibility) Collected: 06/25/252000 Lab Status: Final [...] Resistant Blood Culture - Blood, Hand, Right [[id number]] (Abnormal) (Susceptibility) Collected: 06/25/25 2030 Lab Status: [...] report. Wound Culture - Swab, Foot, Left [[id number]] (Abnormal) (Susceptibility) Collected: 06/25/25 181 Lab Status: [...] Culture ID, PCR - Blood, Hand, Right [[id number]] (Abnormal) Collected: 06/25/252029 Lab Status: Final result Specimen: Blood from Hand, Right Updated: 06/26/252101 BCID, PCR Enterococcus faecium. Zee/B (vancomycin resistance gene) not detected. Identification byBCID2 PCR. BOTTLE TYPE Anaerobic Bottle Narrative: Infectious disease consultation is highly recommended to rule out distant foci of infection. MRSA Screen, PCR (Inpatient) - Swab, Nares [[id number]] (Abnormal) Collected: 06/26/2545 Lab Status: Final result Specimen: Swab from Nares Updated: 06/26/25 0850 MRSA PCR Positive Narrative: The negative predictive value of this diagnostic test is high and should only be used to consider de-escalating anti-MRSA therapy. A positive result may indicate colonization with MRSA and must be correlated clinically. Gastrointestinal Panel, PCR - Stool, Per Rectum [[id number]] (Abnormal) Collected: 06/26/2545 Lab Status: Final result [...] Clostridioides difficile Toxin - Stool, Per Rectum [[id number]] (Abnormal) Collected: 06/26/2545 Lab Status: Final result Specimen: Stool from Per Rectum Updated: 06/26/25 0755 Narrative: The following orders were created for panel order Clostridioides difficile Toxin - Stool, Per Rectum. Procedure Abnormality Status --------- ------ Clostridioides difficile...[[id number]] Abnormal Final result Please view results for these tests on the individual orders. Clostridioides difficile Toxin, PCR - Stool, Per Rectum [[id number]] (Abnormal) Collected: 06/26/25 0046 Lab Status: Final [...] disease) [I73.9] Yes 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 [I25.10] Yes Seizure [...] obesity and chronic debility. Last admitted to [facility] 06/02-06/11/25 for LLE cellulitis with failure of outpatient treatment. Wound cultures grew Proteus and concern for ESBL per lab and MRSA. He completed 7 days of IV abx prior to DC home. He has declined LLE amputation He returned to [facility] ED on 06/25/25 for evaluation of hematuria, [...] - Needs OP referral to urology at [place] for long-term management if consistent with goals [...] thank you. Electronically signed by: Annie Huber MS,SAAD,LD 07/25/25 11:10 EST * Talisha Resendez, CONSTRUCTION COST ESTIMATOR - 07/25/2025 10:13 AM EST Palliative Care [...] hypertension Seizure disorder 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 PAD (peripheral artery [...] - 07/25/2025 7:51 AM EST Trung Martinez [place] 1955 [id number] Evaluating Physician: Duglas Andres MD Chief Complaint: [...] excoriation/crusted areas at the toes, hospitalized at [facility] June 04 untilSe2022 and discharged with oral antibiotics for left lower extremity cellulitis; he alsohas nonhealing wounds at his buttocks 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 Admitted to [facility] June 13 2023 diagnosis of sepsis per admission notes, left lower extremity cellulitis with pressure injury at buttocks. 06/15/24 Dr Colón saw and recommended amputation; patient refused ; see his note for detail 06/17/23 Dr buenrostro discussed potential options for heel debridement with patient; MRI no osteomyelitis per radiology; taken to OR PROCEDURE: Left 84437: Debridement of skin and subcutaneous tissue 86837: wound vacuum-assisted closure, wound measuring 2.5 cm [...] 07/25/[address] Buenrostro PROCEDURE: Left 92850: Debridement of skin and subcutaneous tissue 98435: Wound vacuum-assisted closure culture data with MRSA/aneta. [...] to left CHIP per vascular team d/w ut Procedure/CPT?? Codes: Procedure(s): LLE arteriogram with run-off possible intervention 01/28/24 Dr. 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 Faust in [place] and has seen Dr Oneal (ID in [place]); he is not a good historian with respect to detail. Reports having had some further surgery to the left foot although he is unable to clarify specific date/procedure. Culture at [facility] August 07, 2024 from left foot wound with ESBL Klebsiella pneumoniae and pseudomonas aeruginosa (microbiology lab there reports the Pseudomonas is sensitive to Merrem). He reports his outpatient practitioners had recommended admission to the hospital for IV antibiotics but patient had refused at that time. He also reports that he was in the emergency room at [facility] mid August, no cultures done at that time. Patient reports practitioners at [facility] had recommended higher level amputation but patient has continued to refuse that. He was readmitted to [facility] on August 31, 2024 with worsening odor/drainage andredness/pain to the left lower extremity in recent days/weeks. He reports having been taking outpatient Levaquin; prior history MRSA/PSA and ESBL organisms 09/04/24 Dr Marcano. Procedure/CPT?? Codes: RIGHT AFTER SCHOOL TEACHER access - ultrasound guided Aortogram with LEFT lower extremity run-off LEFT PT angioplasty (9x041zf Nanocross) LEFT plantar angioplasty (8f075la Nanocross, 2.5u587hf UltraverseRx) LEFT AT angioplasty (8o435qk Nanocross, 2.6y425dj UltraverseRx) LEFT DP angioplasty (7f933ga Nanocross, 2.9y740jd UltraverseRx) RIGHT AFTER SCHOOL TEACHER closure (Angioseal) 09/07/24 Dr Marcano Procedure/CPT?? Codes: RIGHT AFTER SCHOOL TEACHER access - ultrasound guided Aortogram with LEFT lower extremity run-off LEFT Pr AVF embolization RIGHT AFTER SCHOOL TEACHER closure 09/09/24 moved to ICU overnight with [...] femoral artery and left popliteal artery 6 [place] Angio-Seal closure of right common femoral arteriotomy [...] Cecil Buenrostro Jr., MD; Location: [facility]; Service: Orthopedics; Laterality: Left; ANTERIOR CERVICAL DISCECTOMY [...] Laterality: Left; Please coordinate with Gautam Patel ([facility]) [phone] who will bring coils LUMBAR DISCECTOMY N/A 05/03/2019 Procedure: THORACIC LAMINECTOMY T11-12; Surgeon: Tyree Tan MD; Location: [facility]; Service: Neurosurgery Pediatric History Patient Parents [...] sensitive to Merrem per microbiology lab at [facility]. 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 ; readmission May 2025 and [...] 400-400-40 MG/5ML suspension 15 mL 15 mL [id number] PRN Amanda Bermudez MD [Held by provider] [...] 17 g 17 g Oral Daily PRN Amnada Bermudez MD And bisacodyl (DULCOLAX) EC tablet [...] BID Amanda Bermudez MD 1 tablet at 07/01/252143 sodium chloride 0.9 % flush 10 mL 10 mL Intravenous PRN Ally Jeffers V, CONSTRUCTION COST ESTIMATOR sodium chloride 0.9 % flush 10 mL [...] IVPB-VTB 1,000 mg Intravenous Q12H Osmany Mccann, [facility] 250 mL/hr at 07/01/252142 1,000 mg at [...] Oral Weekly Duglas Andres MD * Talisha ResendezIZABELLA - 07/24/2025 2:24 PM EST Palliative Care [...] hypertension Seizure disorder 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 PAD (peripheral artery [...] Bermudez APRN - 07/24/2025 1:09 PM EST [facility] Neurology Progress Note Patient Name: Trung [...] mg, 1,000 mg, Oral, Q8H, Talisha Resendez, CONSTRUCTION COST ESTIMATOR, 1,000 mg at 07/23/25 2351 aluminum-magnesium hydroxide-simethicone (MAALOX MAX) 400-400-40 MG/5ML suspension 15 mL, 15 mL, Oral, Q6H PRN, Vaughn Hollingsworth, apixaban (ELIQUIS) tablet 5 mg, 5 mg, Oral, BID, Margaret Massey, CONSTRUCTION COST ESTIMATOR, 5 mg at 07/23/252116 ascorbic acid (VITAMIN C) tablet 500 mg, 500 mg, Oral, Daily, Vaughn Hollingsworth, , 500 mg at 944 baclofen (LIORESAL) tablet 10 mg, 10 mg, Oral, Q12H, Vaughn Hollingsworth DO, 10 mg at 07/23/25 211 benzonatate (TESSALON) capsule 200 mg, 200 mg, Oral, TID PRN, Mere Armas PA-C, 200 mg at 07/18/25 1532 sennosides-docusate (PERICOLACE) [...] 3.125 mg, Oral, BID With Meals, Vaughn Hollingsworth, , 3.125 mg at 07/23/25 1737 clopidogrel (PLAVIX) tablet 75 mg, 75 mg, Oral, Daily, Vaughn Hollingsworth DO, 75 mg at 07/23/25 09 dextrose (D50W) (25 g/50 mL) IV [...] Vaughn Hollingsworth DO, 20 mg at 07/23/25 1743 finasteride (PROSCAR) tablet 5 mg, 5 mg, Oral, Daily, Vaughn Hollingsworth DO, 5 mg at 07/23/25 0944 folic acid (FOLVITE) tablet 1 mg, 1 mg, Oral, Daily, Vaughn Hollingsworth DO, 1 mg at 07/23/25 0944 gabapentin (NEURONTIN) capsule 600 mg, 600 mg, Oral, Q8H, Talisha Resendez, CONSTRUCTION COST ESTIMATOR, 600 mg at 116 glucagon (GLUCAGEN) injection [...] 3 mL, 3 mL, Nebulization, Q6H PRN, Vaughn Hollingsworth DO lamoTRIgine (LaMICtal) tablet 100 mg, 100 mg, Oral, Daily, Vaughn Hollingsworth DO, 100 mg at 07/23/25 0947 lamoTRIgine (LaMICtal) tablet 250 mg, 250 mg, Oral, Nightly, Vaughn Hollingsworth, DO, 250 mg at 07/23/252115 LORazepam (ATIVAN) injection 1 mg, 1 mg, Intramuscular, Q4H PRN, Ana Reynolds, DO, 1 mg at 07/23/25 2330 Magnesium Cardiology Dose Replacement - Follow Nurse / BPA Driven Protocol, , Not Applicable, PRN, Vuaghn Hollingsworth, DO meropenem (MERREM) 500 mg in sodium chloride 0.9 % 100 mL MBP, 500 mg, Intravenous, Q8H, Osmany Mccann, [facility] methenamine (HIPREX) tablet 1 g, 1 g, Oral, BID With Meals, Vaughn Hollingsworth, DO, 1 g at 07/23/25 173 mirtazapine (REMERON) tablet 15 mg, 15 mg, Oral, Nightly, Gigi Alcantara MD, 15 mg at 07/22/252141 multivitamin with minerals 1 tablet, 1 tablet, Oral, Daily, Vaughn Hollingsworth DO, 1 tablet at 020 [DISCONTINUED] morphine [...] 4 mg, Intravenous, Q6H PRN, Vaughn Hollingsworth, , 4 mg at 07/16/25 09 oxyCODONE (ROXICODONE) immediate release tablet 15 mg, 15 mg, Oral, Q6H, Talisha Resendez CONSTRUCTION COST ESTIMATOR, 15 mg at 07/23/25 2350 oxyCODONE (ROXICODONE) immediate release tablet 15 mg, 15 mg, Oral, Q4H PRN, Ana Reynolds, ,15 mg at 07/23/25 2116 Phosphorus Replacement - Follow Nurse / BPA Driven Protocol, , Not Applicable, PRN, Vaughn Hollingsworth S, DO Potassium Replacement - Follow Nurse / BPA Driven Protocol, , Not Applicable, PRN, Vaughn Hollingsworth, DO Insert Peripheral IV, , , Once AND sodium chloride 0.9 % flush 10 mL, 10 mL, Intravenous, PRN, Vaughn Hollingsworth S, sodium chloride 0.9 % flush 10 mL, 10 mL, Intravenous, Q12H, Vaughn Hollingsworth, DO, 10 mL at 07/23/25 2132 sodium chloride 0.9 % flush 10 mL, 10 mL, Intravenous, PRN, Vaughn Hollingsworth, DO sodium zirconium cyclosilicate (LOKELMA) packet 10 [...] 125 mg, 125 mg, Oral, Weekly, Vaughn Hollingsworth, DO ziprasidone (GEODON) injection 10 mg, 10 [...] >20.00 06/15/2023 Lab Results Component Value Date [id number] 06/26/2025 Assessment / Plan Brief Patient [...] to 06/11 for LLE cellulitis) presented to [facility] on 06/25/2025 with complaint of hematuria, left [...] Time spent with patient: 50 minutes in [id number] evaluation and management of the patient. Copied text in this note has been reviewed and is accurate as of 07/24/25. Shara Bermudez APRN * Ana Reynolds, DO - 07/24/2025 12:29 PM EST Images from the original note were not included. [facility] Medicine Services PROGRESS NOTE Patient Name: Trung [...] Urine Culture - Urine, Indwelling Urethral Catheter [[id number]] (Abnormal) Collected: 07/14/2552 Lab Status: Final result Specimen: Urine from Indwelling Urethral Catheter Updated: 07/15/25 1329 Urine Culture Yeast isolated Narrative: No further workup for yeast Colonization of the urinary tract without infection is common. Treatment is discouraged unless the patient is symptomatic, , or undergoing an invasive urologic procedure. Urine Culture - Urine, Indwelling Urethral Catheter [[id number]] (Abnormal) (Susceptibility) Collected: 06/25/252000 Lab Status: Final [...] Resistant Blood Culture - Blood, Hand, Right [[id number]] (Abnormal) (Susceptibility) Collected: 06/25/252029 Lab Status: Edited [...] report. Wound Culture - Swab, Foot, Left [[id number]] (Abnormal) (Susceptibility) Collected: 06/25/25 1818 Lab Status: [...] Culture ID, PCR - Blood, Hand, Right [[id number]] (Abnormal) Collected: 06/25/25 2030 Lab Status: Final result Specimen: Blood from Hand, Right Updated: 06/26/252101 BCID, PCR Enterococcus faecium. Zee/B (vancomycin resistance gene) not detected. Identification byBCID2 PCR. BOTTLE TYPE Anaerobic Bottle Narrative: Infectious disease consultation is highly recommended to rule out distant foci of infection. MRSA Screen, PCR (Inpatient) - Swab, Nares [[id number]] (Abnormal) Collected: 06/26/25 0046 Lab Status: Final result Specimen: Swab from Nares Updated: 06/26/25 0850 MRSA PCR Positive Narrative: The negative predictive value of this diagnostic test is high and should only be used to consider de-escalating anti-MRSA therapy. A positive result may indicate colonization with MRSA and must be correlated clinically. Gastrointestinal Panel, PCR - Stool, Per Rectum [[id number]] (Abnormal) Collected: 06/26/2545 Lab Status: Final result [...] Clostridioides difficile Toxin - Stool, Per Rectum [[id number]] (Abnormal) Collected: 06/26/2545 Lab Status: Final result Specimen: Stool from Per Rectum Updated: 06/26/25754 Narrative: The following orders were created for panel order Clostridioides difficile Toxin - Stool, Per Rectum. Procedure Abnormality Status --------- ------ Clostridioides difficile...[[id number]] Abnormal Final result Please view results for these tests on the individual orders. Clostridioides difficile Toxin, PCR - Stool, Per Rectum [[id number]] (Abnormal) Collected: 06/26/2545 Lab Status: Final result [...] disease) [I73.9] Yes 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 [I25.10] Yes Seizure [...] obesity and chronic debility. Last admitted to [facility] 06/02-06/11/25 for LLE cellulitis with failure of outpatient treatment. Wound cultures grew Proteus and concern for ESBL per lab and MRSA. He completed 7 days of IV abx prior to DC home. He has declined LLE amputation He returned to [facility] ED on 06/25/25 for evaluation of hematuria, [...] - Needs OP referral to urology at [place] for long-term management Diarrhea Norovirus / C. [...] - 07/24/2025 7:53 AM EST Trung Martinez [facility] 1955 [id number] Evaluating Physician: Duglas Andres MD Chief Complaint: [...] excoriation/crusted areas at the toes, hospitalized at [facility] June 04 untilSe2022 and discharged with oral antibiotics for left lower extremity cellulitis; he alsohas nonhealing wounds at his buttocks 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 Admitted to [facility] June 13 2023 diagnosis of sepsis per admission notes, left lower extremity cellulitis with pressure injury at buttocks. 06/15/24 Dr Colón saw and recommended amputation; patient refused ; see his note for detail 06/17/23 Dr buenrostro discussed potential options for heel debridement with patient; MRI no osteomyelitis per radiology; taken to OR PROCEDURE: Left 85850: Debridement of skin and subcutaneous tissue 84453: wound vacuum-assisted closure, wound measuring 2.5 cm [...] 07/25/[address] Buenrostro PROCEDURE: Left 40599: Debridement of skin and subcutaneous tissue 85024: Wound vacuum-assisted closure culture data with MRSA/aneta. [...] to left CHIP per vascular team d/w ut Procedure/CPT?? Codes: Procedure(s): LLE arteriogram with run-off possible intervention 01/28/24 Dr. 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 Faust in [place] and has seen Dr Oneal (ID in [place]); he is not a good historian with respect to detail. Reports having had some further surgery to the left foot although he is unable to clarify specific date/procedure. Culture at [facility] August 07, 2024 from left foot wound with ESBL Klebsiella pneumoniae and pseudomonas aeruginosa (microbiology lab there reports the Pseudomonas is sensitive to Merrem). He reports his outpatient practitioners had recommended admission to the hospital for IV antibiotics but patient had refused at that time. He also reports that he was in the emergency room at [facility] mid August, no cultures done at that time. Patient reports practitioners at [facility] had recommended higher level amputation but patient has continued to refuse that. He was readmitted to [facility] on August 31, 2024 with worsening odor/drainage andredness/pain to the left lower extremity in recent days/weeks. He reports having been taking outpatient Levaquin; prior history MRSA/PSA and ESBL organisms 09/04/24 Dr Marcano. Procedure/CPT?? Codes: RIGHT AFTER SCHOOL TEACHER access - ultrasound guided Aortogram with LEFT lower extremity run-off LEFT PT angioplasty ([id number] Nanocross) LEFT plantar angioplasty ([id number] Nanocross, 2.9z043nn UltraverseRx) LEFT AT angioplasty ([id number] Nanocross, 2.9x446ux UltraverseRx) LEFT DP angioplasty ([id number] Nanocross, 2.5q743cf UltraverseRx) RIGHT AFTER SCHOOL TEACHER closure (Angioseal) 09/07/24 Dr Marcano Procedure/CPT?? Codes: RIGHT AFTER SCHOOL TEACHER access - ultrasound guided Aortogram with LEFT lower extremity run-off LEFT Pr AVF embolization RIGHT AFTER SCHOOL TEACHER closure 09/09/24 moved to ICU overnight with [...] femoral artery and left popliteal artery 6 [place] Angio-Seal closure of right common femoral arteriotomy [...] Cecil Buenrostro Jr., MD; Location: [facility]; Service: Orthopedics; Laterality: Left; ANTERIOR CERVICAL DISCECTOMY W/ FUSION Bilateral 07/17/2020 Procedure: Cervical discectomy anterior with fusion C3-4; Surgeon: Tyree Tan MD; Location: [facility]; Service: Neurosurgery; Laterality: Bilateral; AORTOGRAM N/A 01/26/2024 Procedure: ABDOMINAL AORTIC ANGIOGRAM, LLE ANGIOGRAM, LEFT ANTERIOR TIBIAL ATHERECTOMY, LEFT ANTERIOR TIBIAL ANGIOPLASTY; Surgeon: Archie Olvera MD; Location: [facility]; Service: Vascular; Laterality: N/A; CONTRAST: 50 ML, FT: 2 MIN 54 SEC, DOSE: 66 MGY. AORTOGRAM Left 07/03/2025 Procedure: ARTERIOGRAM LOWER EXTREMITY; Surgeon: Vaughn Hollingsworth DO; Location: [facility]; Service: Vascular; Laterality: Left; FT-6MINS 24SEC 140 MGY CONTRAST -15ML BACK SURGERY FOR DISC HERNIATION CARDIAC CATHETERIZATION CARDIAC CATHETERIZATION N/A 09/04/2024 Procedure: Peripheral angiography - Left lower extremity angio - Right femoral access; Surgeon: Jared Marcano MD; Location: [facility]; Service: Peripheral Vascular; Laterality: N/A; CORONARY ANGIOPLASTY WITH STENT PLACEMENT stent x 1 INCISION AND DRAINAGE FOOT Left 06/17/2023 Procedure: LEFT FOOT DEBRIDEMENT WOUND VACUUM ASSISTED CLOSURE; Surgeon: Cecil Buenrostro Jr., MD;Location: [facility]; Service: Orthopedics; Laterality: Left; INCISION AND DRAINAGE LEG Left 07/25/2023 Procedure: INCISION AND DRAINAGE HEEL, WOUND VAC; Surgeon: Cecil Buenrostro Jr., MD; Location: [facility]; Service: Orthopedics; Laterality: Left; INCISION AND DRAINAGE LEG Left 07/03/2025 Procedure: DEBRIDEMENT WOUND, PLACEMENT OF WOUND VAC; Surgeon: Vaughn Hollingsworth DO; Location: [facility]; Service: Vascular; Laterality: Left; INTERVENTIONAL RADIOLOGY PROCEDURE N/A 05/02/2019 Procedure: IVC FILTER PLACEMENT; Surgeon: Pedro Zapien MD; Location: [facility]; Service: Interventional Radiology INTERVENTIONAL RADIOLOGY PROCEDURE Left 09/07/2024 Procedure: LEFT peroneal arteriovenous fistula embolization - Right femoral access; Surgeon: Jared Marcano MD; Location: [facility]; Service: Cardiovascular; Laterality: Left; Please coordinate with Gautam Patel ([facility]) [phone] who will bring coils LUMBAR DISCECTOMY N/A 05/03/2019 Procedure: THORACIC LAMINECTOMY T11-12; Surgeon: Tyree Tan MD; Location: [facility]; Service: Neurosurgery Pediatric History Patient Parents [...] Vaughn Hollingsworth DO Placed in Followed by [facility] 125 mg Oral 3 Times [...] mL 0.9% NS IVPB ([facility]) Ordering Provider: Siobhan, Osmany H, RPH 2,500 mg over 150 Minutes Intravenous Once 06/27/25 0945 06/27/25 1150 06/27/25 0808 vancomycin 2250 mg/500 mL 0.9% NS IVPB ([facility]) Status: Discontinued Ordering Provider: Siobhan Osmany Niall, RPH 2,250 mg over 135 Minutes [...] Provider: Vaughn Hollingsworth, Placed in Followed by [facility] 125 mg Oral 4 Times [...] tablet 1 g Ordering Provider: Vaughn Hollingsworth S, DO 1 g Oral 2 Times Daily With Meals 06/26/2579906/25/252302 piperacillin-tazobactam (ZOSYN) 3.375 g IVPB in 100 [...] mL MBP Ordering Provider: Ally Jeffers V CONSTRUCTION COST ESTIMATOR 1,000 mg over 30 Minutes Intravenous Once [...] sensitive to Merrem per microbiology lab at [facility]. 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 AORTOGRAM Left 07/03/2025 Procedure: ARTERIOGRAM LOWER EXTREMITY; Surgeon: Vaughn Hollingsworth DO; Location: [facility]; Service: Vascular; Laterality: Left; FT-6MINS 24SEC 140 MGY CONTRAST -15ML BACK SURGERY FOR DISC HERNIATION CARDIAC CATHETERIZATION CARDIAC CATHETERIZATION N/A 09/04/2024 Procedure: Peripheral angiography - Left lower extremity angio - Right femoral access; Surgeon: Jared Marcano MD; Location: [facility]; Service: Peripheral Vascular; Laterality: N/A; CORONARY ANGIOPLASTY WITH STENT PLACEMENT stent x 1 INCISION AND DRAINAGE FOOT Left 06/17/2023 Procedure: LEFT FOOT DEBRIDEMENT WOUND VACUUM ASSISTED CLOSURE; Surgeon: Cecil Buenrostro Jr., MD;Location: [facility]; Service: Orthopedics; Laterality: Left; INCISION AND DRAINAGE LEG Left 07/25/2023 Procedure: INCISION AND DRAINAGE HEEL, WOUND VAC; Surgeon: Cecil Buenrostro Jr., MD; Location: [facility]; Service: Orthopedics; Laterality: Left; INCISION AND DRAINAGE LEG Left 07/03/2025 Procedure: DEBRIDEMENT WOUND, PLACEMENT OF WOUND VAC; Surgeon: Vaughn Hollingsworth DO; Location: [facility]; Service: Vascular; Laterality: Left; INTERVENTIONAL RADIOLOGY PROCEDURE N/A 05/02/2019 Procedure: IVC FILTER PLACEMENT; Surgeon: Pedro Zapien MD; Location: [facility]; Service: Interventional Radiology INTERVENTIONAL RADIOLOGY PROCEDURE Left 09/07/2024 Procedure: LEFT peroneal arteriovenous fistula embolization - Right femoral access; Surgeon: Jared Marcano MD; Location: [facility]; Service: Cardiovascular; Laterality: Left; Please coordinate with Gautam Patel ([facility]) [phone] who will bring coils LUMBAR DISCECTOMY N/A 05/03/2019 Procedure: THORACIC LAMINECTOMY T11-12; Surgeon: Tyree Tan MD; Location: [facility]; Service: Neurosurgery Social History: Social History [...] from the original note were not included. [facility] Medicine Services PROGRESS NOTE Patient Name: Trung Pool : 1955 Date of Admission: 06/25/2025 Primary Care Physician: Gustavo Mehta MD Subjective CC: f/u LLE HPI: Patient more alert and conversant today. Coherence has improved. States he does not remember pulling out his IV or his wound vac. Refusing to have IV placed. Initially told me he was at a [employer], but then redirected and said he was [...] able to tell me he is at [facility] and that the year is 2024 Skin: No rashes Results Reviewed: LAB RESULTS: Lab 07/20/25 0508 07/17/2548 WBC 6.74 7.10 HEMOGLOBIN 9.6* 9.3* HEMATOCRIT 30.3* 31.1* PLATELETS 228 211 MCV 78.3* 79.1 Lab 07/23/25 0442 07/20/25 0508 07/19/25 0835 07/18/257 07/17/25547 SODIUM 137 136 -- 137 139 POTASSIUM [...] Urine Culture - Urine, Indwelling Urethral Catheter [[id number]] (Abnormal) Collected: 07/14/2552 Lab Status: Final result Specimen: Urine from Indwelling Urethral Catheter Updated: 07/15/251328 Urine Culture Yeast isolated Narrative: No further workup for yeast Colonization of the urinary tract without infection is common. Treatment is discouraged unless the patient is symptomatic, , or undergoing an invasive urologic procedure. Urine Culture - Urine, Indwelling Urethral Catheter [[id number]] (Abnormal) (Susceptibility) Collected: 06/25/252000 Lab Status: Final [...] Resistant Blood Culture - Blood, Hand, Right [[id number]] (Abnormal) (Susceptibility) Collected: 06/25/252029 Lab Status: Edited [...] report. Wound Culture - Swab, Foot, Left [[id number]] (Abnormal) (Susceptibility) Collected: 06/25/25 1818 Lab Status: [...] Culture ID, PCR - Blood, Hand, Right [[id number]] (Abnormal) Collected: 06/25/252029 Lab Status: Final result Specimen: Blood from Hand, Right Updated: 06/26/252101 BCID, PCR Enterococcus faecium. Zee/B (vancomycin resistance gene) not detected. Identification byBCID2 PCR. BOTTLE TYPE Anaerobic Bottle Narrative: Infectious disease consultation is highly recommended to rule out distant foci of infection. MRSA Screen, PCR (Inpatient) - Swab, Nares [[id number]] (Abnormal) Collected: 06/26/2545 Lab Status: Final result Specimen: Swab from Nares Updated: 06/26/25 0850 MRSA PCR Positive Narrative: The negative predictive value of this diagnostic test is high and should only be used to consider de-escalating anti-MRSA therapy. A positive result may indicate colonization with MRSA and must be correlated clinically. Gastrointestinal Panel, PCR - Stool, Per Rectum [[id number]] (Abnormal) Collected: 06/26/2545 Lab Status: Final result [...] Clostridioides difficile Toxin - Stool, Per Rectum [[id number]] (Abnormal) Collected: 06/26/2545 Lab Status: Final result Specimen: Stool from Per Rectum Updated: 06/26/25754 Narrative: The following orders were created for panel order Clostridioides difficile Toxin - Stool, Per Rectum. Procedure Abnormality Status --------- ------ Clostridioides difficile...[[id number]] Abnormal Final result Please view results for these tests on the individual orders. Clostridioides difficile Toxin, PCR - Stool, Per Rectum [[id number]] (Abnormal) Collected: 06/26/2545 Lab Status: Final result [...] disease) [I73.9] Yes 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 [I25.10] Yes Seizure [...] obesity and chronic debility. Last admitted to [facility] 06/02-06/11/25 for LLE cellulitis with failure of outpatient treatment. Wound cultures grew Proteus and concern for ESBL per lab and MRSA. He completed 7 days of IV abx prior to DC home. He has declined LLE amputation He returned to [facility] ED on 06/25/25 for evaluation of hematuria, [...] - Needs OP referral to urology at [place] for long-term management Diarrhea Norovirus / C. [...] to Resuscitate); Full Support Ordered at: 06/25/25 1450 Code Status (Patient has no pulse and is not breathing): CPR (Attempt to Resuscitate) Medical Interventions (Patient has pulse or is breathing): Full Support Level Of Support Discussed With: Patient Ana Reynolds DO 07/23/25 * Duglas Andres MD - 07/23/2025 7:57 AM EST Trung Martinez [facility] 1955 [id number] Evaluating Physician: Duglas Andres MD Chief Complaint: [...] excoriation/crusted areas at the toes, hospitalized at [facility] June 04 untilSept2022 and discharged with oral antibiotics for left lower extremity cellulitis; he alsohas nonhealing wounds at his buttocks 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 Admitted to [facility] June 13 2023 diagnosis of sepsis per admission notes, left lower extremity cellulitis with pressure injury at buttocks. 06/15/24 Dr Colón saw and recommended amputation; patient refused ; see his note for detail 06/17/23 Dr buenrostro discussed potential options for heel debridement with patient; MRI no osteomyelitis per radiology; taken to OR PROCEDURE: Left 04716: Debridement of skin and subcutaneous tissue 22409: wound vacuum-assisted closure, wound measuring 2.5 cm [...] to refuse amputation 07/25/[address] Bunerostro PROCEDURE: Left 95876: Debridement of skin and subcutaneous tissue 84343: Wound vacuum-assisted closure culture data with MRSA/aneta. [...] possible intervention 01/28/24 Dr. 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 Faust in [place] and has seen Dr Oneal (ID in [place]); he is not a good historian with respect to detail. Reports having had some further surgery to the left foot although he is unable to clarify specific date/procedure. Culture at [facility] August 07, 2024 from left foot wound with ESBL Klebsiella pneumoniae and pseudomonas aeruginosa (microbiology lab there reports the Pseudomonas is sensitive to Merrem). He reports his outpatient practitioners had recommended admission to the hospital for IV antibiotics but patient had refused at that time. He also reports that he was in the emergency room at [facility] mid August, no cultures done at that time. Patient reports practitioners at [facility] had recommended higher level amputation but patient has continued to refuse that. He was readmitted to [facility] on August 31, 2024 with worsening odor/drainage andredness/pain to the left lower extremity in recent days/weeks. He reports having been taking outpatient Levaquin; prior history MRSA/PSA and ESBL organisms 09/04/24 Dr Marcano. Procedure/CPT?? 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 Codes: RIGHT AFTER SCHOOL TEACHER access - ultrasound guided Aortogram with LEFT lower extremity run-off LEFT Pr AVF embolization RIGHT AFTER SCHOOL TEACHER closure 09/09/24 moved to ICU overnight with [...] femoral artery and left popliteal artery 6 [place] Angio-Seal closure of right common femoral arteriotomy [...] LEFT; Surgeon: Cecil Buenrostro Jr., MD; Location: [facility]; Service: Orthopedics; Laterality: Left; ANTERIOR CERVICAL DISCECTOMY W/ FUSION Bilateral 07/17/2020 Procedure: Cervical discectomy anterior with fusion C3-4; Surgeon: Tyree Tan MD; Location: [facility]; Service: Neurosurgery; Laterality: Bilateral; AORTOGRAM N/A 01/26/2024 Procedure: ABDOMINAL AORTIC ANGIOGRAM, LLE ANGIOGRAM, LEFT ANTERIOR TIBIAL ATHERECTOMY, LEFT ANTERIOR TIBIAL ANGIOPLASTY; Surgeon: Archie Olvera MD; Location: [facility]; Service: Vascular; Laterality: N/A; CONTRAST: 50 ML, FT: 2 MIN 54 SEC, DOSE: 66 MGY. AORTOGRAM Left 07/03/2025 Procedure: ARTERIOGRAM LOWER EXTREMITY; Surgeon: Vaughn Hollingsworth DO; Location: [facility]; Service: Vascular; Laterality: Left; FT-6MINS 24SEC 140 MGY CONTRAST -15ML BACK SURGERY FOR DISC HERNIATION CARDIAC CATHETERIZATION CARDIAC CATHETERIZATION N/A 09/04/2024 Procedure: Peripheral angiography - Left lower extremity angio - Right femoral access; Surgeon: Jared Marcano MD; Location: [facility]; Service: Peripheral Vascular; Laterality: N/A; CORONARY ANGIOPLASTY WITH STENT PLACEMENT stent x 1 INCISION AND DRAINAGE FOOT Left 06/17/2023 Procedure: LEFT FOOT DEBRIDEMENT WOUND VACUUM ASSISTED CLOSURE; Surgeon: Cecil Buenrostro Jr., MD;Location: [facility]; Service: Orthopedics; Laterality: Left; INCISION AND DRAINAGE LEG Left 07/25/2023 Procedure: INCISION AND DRAINAGE HEEL, WOUND VAC; Surgeon: Cecil Buenrostro Jr., MD; Location: [facility]; Service: Orthopedics; Laterality: Left; INCISION AND [...] Laterality: Left; Please coordinate with Gautam Patel ([facility]) [phone] who will bring coils LUMBAR DISCECTOMY N/A [...] 0716 Pharmacy to dose vancomycin Ordering Provider: Dulgas Andres MD Not Applicable Continuous PRN 07/23/25 [...] 250 mL VTB Ordering Provider: Leonie Esquivel [facility] 1,250 mg 200 mL/hr over 75 Minutes Intravenous Every 24 Hours 07/11/25 1200 08/14/25 2359 06/26/25 0831 vancomycin (VANCOCIN) capsule 125 mg Ordering Provider: Vaughn Hollingsworth DO Placed in Followed by [facility] 125 mg Oral 3 Times Daily 07/10/25 1600 07/17/25 1559 07/09/25 0813 vancomycin (dosing per levels) Status: Discontinued Ordering Provider: Osmany Mccann [facility] Not Applicable Daily 07/09/25 0900 07/11/25 1101 [...] 0.9 % 50 mL IVPB Ordering Provider: Alyl Jeffers APRN 6 mg/kg ?? 94.6 kg (Adjusted) 100 mL/hr over 30 Minutes Intravenous Once 06/25/258 06/25/25 2307 06/25/25 2112 meropenem (MERREM) 1,000 mg in sodium chloride 0.9 % 100 mL MBP Ordering Provider: Ally Jeffers APRN 1,000 mg over 30 Minutes Intravenous Once 06/25/25212706/25/257 Review of Systems 07/23/25 Constitutional-- No Fever, [...] sensitive to Merrem per microbiology lab at [facility]. 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 ; readmission May 2025 and [...] 400-400-40 MG/5ML suspension 15 mL 15 mL [id number] PRN Amanda Bermudez MD [Held by provider] [...] 10 mL Intravenous PRN Ally Jeffers V, CONSTRUCTION COST ESTIMATOR sodium chloride 0.9 % flush 10 mL [...] IVPB-VTB 1,000 mg Intravenous Q12H Osmany Mccann, [facility] 250 mL/hr at 07/01/252142 1,000 mg at [...] Weekly Duglas Andres MD * Osmany Mccann [facility] - 07/23/2025 7:35 AM EST Images from [...] Urine Culture - Urine, Indwelling Urethral Catheter [[id number]] (Abnormal) Collected: 07/14/25 0053 Lab Status: Final [...] LEFT; Surgeon: Cecil Buenrostro Jr., MD; Location: [facility]; Service: Orthopedics; Laterality: Left; ANTERIOR CERVICAL DISCECTOMY W/ FUSION Bilateral 07/17/2020 Procedure: Cervical discectomy anterior with fusion C3-4; Surgeon: Tyree Tan MD; Location: [facility]; Service: Neurosurgery; Laterality: Bilateral; AORTOGRAM N/A 01/26/2024 Procedure: ABDOMINAL AORTIC ANGIOGRAM, LLE ANGIOGRAM, LEFT ANTERIOR TIBIAL ATHERECTOMY, LEFT ANTERIOR TIBIAL ANGIOPLASTY; Surgeon: Archie Olvera MD; Location: [facility]; Service: Vascular; Laterality: N/A; CONTRAST: 50 ML, FT: 2 MIN 54 SEC, DOSE: 66 MGY. AORTOGRAM Left 07/03/2025 Procedure: ARTERIOGRAM LOWER EXTREMITY; Surgeon: Vaughn Hollingsworth DO; Location: [facility]; Service: Vascular; Laterality: Left; FT-6MINS 24SEC 140 MGY CONTRAST -15ML BACK SURGERY FOR DISC HERNIATION CARDIAC CATHETERIZATION CARDIAC CATHETERIZATION N/A 09/04/2024 Procedure: Peripheral angiography - Left lower extremity angio - Right femoral access; Surgeon: Jared Marcano MD; Location: [facility]; Service: Peripheral Vascular; Laterality: N/A; CORONARY ANGIOPLASTY WITH STENT PLACEMENT stent x 1 INCISION AND DRAINAGE FOOT Left 06/17/2023 Procedure: LEFT FOOT DEBRIDEMENT WOUND VACUUM ASSISTED CLOSURE; Surgeon: Cecil Buenrostro Jr., MD;Location: [facility]; Service: Orthopedics; Laterality: Left; INCISION AND DRAINAGE LEG Left 07/25/2023 Procedure: INCISION AND DRAINAGE HEEL, WOUND VAC; Surgeon: Cecil Buenrostro Jr., MD; Location: [facility]; Service: Orthopedics; Laterality: Left; INCISION AND DRAINAGE LEG Left 07/03/2025 Procedure: DEBRIDEMENT WOUND, PLACEMENT OF WOUND VAC; Surgeon: Vaughn Hollingsworth DO; Location: [facility]; Service: Vascular; Laterality: Left; INTERVENTIONAL RADIOLOGY PROCEDURE N/A 05/02/2019 Procedure: IVC FILTER PLACEMENT; Surgeon: Pedro Zapien MD; Location: [facility]; Service: Interventional Radiology INTERVENTIONAL RADIOLOGY PROCEDURE Left 09/07/2024 Procedure: LEFT peroneal arteriovenous fistula embolization - Right femoral access; Surgeon: Jared Marcano MD; Location: [facility]; Service: Cardiovascular; Laterality: Left; Please coordinate with Gautam Patel ([facility]) [phone] who will bring coils LUMBAR DISCECTOMY N/A 05/03/2019 Procedure: THORACIC LAMINECTOMY T11-12; Surgeon: Tyree Tan MD; Location: [facility]; Service: Neurosurgery Social History: Social History [...] (Two) Times a Day With Meals. Yes ProviderDario MD multivitamin with minerals tablet tablet Take [...] refusing po meds). - Continue Lamictal. * Gail Ana R, DO - 07/22/2025 10:31 AM EST Images from the original note were not included. [facility] Medicine Services PROGRESS NOTE Patient Name: Trung [...] Urine Culture - Urine, Indwelling Urethral Catheter [[id number]] (Abnormal) Collected: 07/14/2552 Lab Status: Final result Specimen: Urine from Indwelling Urethral Catheter Updated: 07/15/25 132 Urine Culture Yeast isolated Narrative: No further workup for yeast Colonization of the urinary tract without infection is common. Treatment is discouraged unless the patient is symptomatic, , or undergoing an invasive urologic procedure. Urine Culture - Urine, Indwelling Urethral Catheter [[id number]] (Abnormal) (Susceptibility) Collected: 06/25/252000 Lab Status: Final [...] Resistant Blood Culture - Blood, Hand, Right [[id number]] (Abnormal) (Susceptibility) Collected: 06/25/252029 Lab Status: Edited [...] report. Wound Culture - Swab, Foot, Left [[id number]] (Abnormal) (Susceptibility) Collected: 06/25/251817 Lab Status: Final [...] Culture ID, PCR - Blood, Hand, Right [[id number]] (Abnormal) Collected: 06/25/25 2030 Lab Status: Final result Specimen: Blood from Hand, Right Updated: 06/26/252101 BCID, PCR Enterococcus faecium. Zee/B (vancomycin resistance gene) not detected. Identification byBCID2 PCR. BOTTLE TYPE Anaerobic Bottle Narrative: Infectious disease consultation is highly recommended to rule out distant foci of infection. MRSA Screen, PCR (Inpatient) - Swab, Nares [[id number]] (Abnormal) Collected: 06/26/2545 Lab Status: Final result Specimen: Swab from Nares Updated: 06/26/25 0850 MRSA PCR Positive Narrative: The negative predictive value of this diagnostic test is high and should only be used to consider de-escalating anti-MRSA therapy. A positive result may indicate colonization with MRSA and must be correlated clinically. Gastrointestinal Panel, PCR - Stool, Per Rectum [[id number]] (Abnormal) Collected: 06/26/2545 Lab Status: Final result [...] Clostridioides difficile Toxin - Stool, Per Rectum [[id number]] (Abnormal) Collected: 06/26/2545 Lab Status: Final result Specimen: Stool from Per Rectum Updated: 06/26/25 5766 Narrative: The following orders were created for panel order Clostridioides difficile Toxin - Stool, Per Rectum. Procedure Abnormality Status --------- ------ Clostridioides difficile...[[id number]] Abnormal Final result Please view results for these tests on the individual orders. Clostridioides difficile Toxin, PCR - Stool, Per Rectum [[id number]] (Abnormal) Collected: 06/26/25 0046 Lab Status: Final [...] disease) [I73.9] Yes 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 [I25.10] Yes Seizure [...] obesity and chronic debility. Last admitted to [facility] 06/02-06/11/25 for LLE cellulitis with failure of outpatient treatment. Wound cultures grew Proteus and concern for ESBL per lab and MRSA. He completed 7 days of IV abx prior to DC home. He has declined LLE amputation He returned to [facility] ED on 06/25/25 for evaluation of hematuria, [...] has been stable. Would stop Entresto at [place] Acute CAUTI and hematuria, POA History of BPH Chronic urinary retention with chronic De Los Santos catheter - Urine culture grew Yeast - H&H stable, resumed Eliquis 07/07 - Urology consulted - recommend continue De Los Santos and finasteride. - Needs OP referral to urology at [place] for long-term management Diarrhea Norovirus / C. [...] from the original note were not included. [facility] Medicine Services PROGRESS NOTE Patient Name: Trung [...] Urine Culture - Urine, Indwelling Urethral Catheter [[id number]] (Abnormal) Collected: 07/14/2552 Lab Status: Final result Specimen: Urine from Indwelling Urethral Catheter Updated: 07/15/25 132 Urine Culture Yeast isolated Narrative: No further workup for yeast Colonization of the urinary tract without infection is common. Treatment is discouraged unless the patient is symptomatic, , or undergoing an invasive urologic procedure. Urine Culture - Urine, Indwelling Urethral Catheter [[id number]] (Abnormal) (Susceptibility) Collected: 06/25/252000 Lab Status: Final [...] Resistant Blood Culture - Blood, Hand, Right [[id number]] (Abnormal) (Susceptibility) Collected: 06/25/252029 Lab Status: Edited Result - FINAL Specimen: Blood from Hand, Right Updated: 06/29/25 0713 Blood Culture Enterococcus faecium Comment: Infectious disease consultation is highly recommended. Isolated from Anaerobic Bottle Gram Stain Anaerobic Bottle Gram positive cocci in chains Narrative: Less than seven (7) mL's of blood was collected. Insufficient quantity may yield false negative results. Dr.Miedler requested linezolid & daptomycin 06/28/25 Susceptibility Enterococcus faecium MURRAY Method Not Specified Ampicillin Susceptible Daptomycin Susceptible dose dependent Gentamicin High Level Synergy Susceptible Linezolid Susceptible (C) [1] Vancomycin Susceptible [1] Appended report. These results have been appended to a previously final verified report. Wound Culture - Swab, Foot, Left [[id number]] (Abnormal) (Susceptibility) Collected: 06/25/25 1818 Lab Status: [...] Culture ID, PCR - Blood, Hand, Right [[id number]] (Abnormal) Collected: 06/25/25 2030 Lab Status: Final result Specimen: Blood from Hand, Right Updated: 06/26/252101 BCID, PCR Enterococcus faecium. Zee/B (vancomycin resistance gene) not detected. Identification byBCID2 PCR. BOTTLE TYPE Anaerobic Bottle Narrative: Infectious disease consultation is highly recommended to rule out distant foci of infection. MRSA Screen, PCR (Inpatient) - Swab, Nares [[id number]] (Abnormal) Collected: 06/26/2545 Lab Status: Final result Specimen: Swab from Nares Updated: 06/26/25 0850 MRSA PCR Positive Narrative: The negative predictive value of this diagnostic test is high and should only be used to consider de-escalating anti-MRSA therapy. A positive result may indicate colonization with MRSA and must be correlated clinically. Gastrointestinal Panel, PCR - Stool, Per Rectum [[id number]] (Abnormal) Collected: 06/26/2545 Lab Status: Final result [...] Clostridioides difficile Toxin - Stool, Per Rectum [[id number]] (Abnormal) Collected: 06/26/2545 Lab Status: Final result Specimen: Stool from Per Rectum Updated: 06/26/25 0755 Narrative: The following orders were created for panel order Clostridioides difficile Toxin - Stool, Per Rectum. Procedure Abnormality Status --------- ------ Clostridioides difficile...[[id number]] Abnormal Final result Please view results for these tests on the individual orders. Clostridioides difficile Toxin, PCR - Stool, Per Rectum [[id number]] (Abnormal) Collected: 06/26/2545 Lab Status: Final result [...] disease) [I73.9] Yes 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 [I25.10] Yes Seizure [...] obesity and chronic debility. Last admitted to [facility] 06/02-06/11/25 for LLE cellulitis with failure of outpatient treatment. Wound cultures grew Proteus and concern for ESBL per lab and MRSA. He completed 7 days of IV abx prior to DC home. He has declined LLE amputation He returned to [facility] ED on 06/25/25 for evaluation of hematuria, [...] has been stable. Would stop Entresto at [place] Acute CAUTI and hematuria, POA History of BPH Chronic urinary retention with chronic De Los Santos catheter - Urine culture grew Yeast - H&H stable, resumed Eliquis 07/07 - Urology consulted - recommend continue De Los Santos and finasteride. - Needs OP referral to urology at [place] for long-term management Diarrhea Norovirus / C. [...] from the original note were not included. [facility] Medicine Services PROGRESS NOTE Patient Name: Trung [...] 0548 07/16/25 0447 07/15/25 0432 07/14/25 0426 07/14/25424 WBC 6.74 7.10 6.76 8.08 -- 8.27 HEMOGLOBIN 9.6* 9.3* 8.9* 8.9* -- 9.2* HEMATOCRIT 30.3* 31.1* 30.2* 30.1* -- 30.9* PLATELETS 228 211 185 210 -- 251 MCV 78.3* 79.1 80.7 80.9 -- 78.8* LACTATE -- -- -- -- 1.0 -- Lab 07/20/25 0508 07/19/25 0835 07/18/25 0337 07/17/25 0548 07/16/257 07/15/25 043 SODIUM 136 -- 137 139 [...] Urine Culture - Urine, Indwelling Urethral Catheter [[id number]] (Abnormal) Collected: 07/14/2552 Lab Status: Final result Specimen: Urine from Indwelling Urethral Catheter Updated: 07/15/25 1329 Urine Culture Yeast isolated Narrative: No further workup for yeast Colonization of the urinary tract without infection is common. Treatment is discouraged unless the patient is symptomatic, , or undergoing an invasive urologic procedure. Urine Culture - Urine, Indwelling Urethral Catheter [[id number]] (Abnormal) (Susceptibility) Collected: 06/25/252000 Lab Status: Final [...] Resistant Blood Culture - Blood, Hand, Right [[id number]] (Abnormal) (Susceptibility) Collected: 06/25/252029 Lab Status: Edited [...] report. Wound Culture - Swab, Foot, Left [[id number]] (Abnormal) (Susceptibility) Collected: 06/25/258 Lab Status: Final [...] Culture ID, PCR - Blood, Hand, Right [[id number]] (Abnormal) Collected: 06/25/25 2030 Lab Status: Final result Specimen: Blood from Hand, Right Updated: 06/26/252101 BCID, PCR Enterococcus faecium. Zee/B (vancomycin resistance gene) not detected. Identification byBCID2 PCR. BOTTLE TYPE Anaerobic Bottle Narrative: Infectious disease consultation is highly recommended to rule out distant foci of infection. MRSA Screen, PCR (Inpatient) - Swab, Nares [[id number]] (Abnormal) Collected: 10/14/25 0046 Lab Status: Final result Specimen: Swab from Nares Updated: 06/26/25849 MRSA PCR Positive Narrative: The negative predictive value of this diagnostic test is high and should only be used to consider de-escalating anti-MRSA therapy. A positive result may indicate colonization with MRSA and must be correlated clinically. Gastrointestinal Panel, PCR - Stool, Per Rectum [[id number]] (Abnormal) Collected: 06/26/2545 Lab Status: Final result [...] Clostridioides difficile Toxin - Stool, Per Rectum [[id number]] (Abnormal) Collected: 06/26/2545 Lab Status: Final result Specimen: Stool from Per Rectum Updated: 06/26/25754 Narrative: The following orders were created for panel order Clostridioides difficile Toxin - Stool, Per Rectum. Procedure Abnormality Status --------- ------ Clostridioides difficile...[[id number]] Abnormal Final result Please view results for these tests on the individual orders. Clostridioides difficile Toxin, PCR - Stool, Per Rectum [[id number]] (Abnormal) Collected: 06/26/2545 Lab Status: Final result [...] disease) [I73.9] Yes 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 [I25.10] Yes Seizure [...] obesity and chronic debility. Last admitted to [facility] 06/02-06/11/25 for LLE cellulitis with failure of outpatient treatment. Wound cultures grew Proteus and concern for ESBL per lab and MRSA. He completed 7 days of IV abx prior to DC home. He has declined LLE amputation He returned to [facility] ED on 06/25/25 for evaluation of hematuria, [...] has been stable. Would stop Entresto at [place] Acute CAUTI and hematuria, POA History of BPH Chronic urinary retention with chronic De Los Santos catheter - Urine culture grew Yeast - H&H stable, resumed Eliquis 07/07 - Urology consulted - recommend continue De Los Santos and finasteride. - Needs OP referral to urology at [place] for long-term management Diarrhea Norovirus / C. [...] Support Level Of Support Discussed With: Patient Aan Reynolds DO 07/20/25 * Duglas Andres MD - 07/20/2025 7:46 AM EST Trung Martinez [facility] 1955 [id number] Evaluating Physician: Duglas Andres MD Chief Complaint: [...] excoriation/crusted areas at the toes, hospitalized at [facility] June 04 untilSe2022 and discharged with oral antibiotics for left lower extremity cellulitis; he alsohas nonhealing wounds at his buttocks 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 Admitted to [facility] June 13 2023 diagnosis of sepsis per admission notes, left lower extremity cellulitis with pressure injury at buttocks. 06/15/24 Dr Colón saw and recommended amputation; patient refused ; see his note for detail 06/17/23 Dr buenrostro discussed potential options for heel debridement with patient; MRI no osteomyelitis per radiology; taken to OR PROCEDURE: Left 60636: Debridement of skin and subcutaneous tissue 71767: wound vacuum-assisted closure, wound measuring 2.5 cm [...] 07/25/[address] Buenrostro PROCEDURE: Left 41090: Debridement of skin and subcutaneous tissue 11236: Wound vacuum-assisted closure culture data with MRSA/aneta. [...] to left CHIP per vascular team d/w ut Procedure/CPT?? Codes: Procedure(s): LLE arteriogram with run-off possible intervention 01/28/24 Dr. Buenrostro PROCEDURE: Left 99082: 2nd lesser toe amputation at the level of the metatarsophalangeal joint 84430-43: 3rd lesser toe amputation at the level of the metatarsophalangeal joint 02/01/24 FLAT SORTING MACHINE CLERK overnight , shaking epsode 02/04/24 overnight events [...] reports being followed by Dr. Faust in [place] and has seen Dr Oneal (ID in [place]); he is not a good historian with respect to detail. Reports having had some further surgery to the left foot although he is unable to clarify specific date/procedure. Culture at [facility] August 07, 2024 from left foot wound with ESBL Klebsiella pneumoniae and pseudomonas aeruginosa (microbiology lab there reports the Pseudomonas is sensitive to Merrem). He reports his outpatient practitioners had recommended admission to the hospital for IV antibiotics but patient had refused at that time. He also reports that he was in the emergency room at [facility] mid August, no cultures done at that time. Patient reports practitioners at [facility] had recommended higher level amputation but patient has continued to refuse that. He was readmitted to [facility] on August 31, 2024 with worsening odor/drainage andredness/pain to the left lower extremity in recent days/weeks. He reports having been taking outpatient Levaquin; prior history MRSA/PSA and ESBL organisms 09/04/24 Dr Marcano. Procedure/CPT?? Codes: RIGHT AFTER SCHOOL TEACHER access - ultrasound guided Aortogram with LEFT lower extremity run-off LEFT PT angioplasty ([id number] Nanocross) LEFT plantar angioplasty ([id number] Nanocross, 2.7u163gj UltraverseRx) LEFT AT angioplasty ([id number] Nanocross, 2.3d739fs UltraverseRx) LEFT DP angioplasty (4o032gj Nanocross, 2.1w596nh UltraverseRx) RIGHT AFTER SCHOOL TEACHER closure (Angioseal) 09/07/24 Dr Marcano Procedure/CPT?? Codes: RIGHT AFTER SCHOOL TEACHER access - ultrasound guided Aortogram with LEFT lower extremity run-off LEFT Pr AVF embolization RIGHT AFTER SCHOOL TEACHER closure 09/09/24 moved to ICU overnight with [...] femoral artery and left popliteal artery 6 [place] Angio-Seal closure of right common femoral arteriotomy [...] fatigued ; nursing reports de los santos grutdb12/3; normal wbc, on room air; sleepy at [...] fusion C3-4; Surgeon: Tyree Tan MD; Location: [facility] OR; Service: Neurosurgery; Laterality: Bilateral; AORTOGRAM N/A 01/26/2024 Procedure: ABDOMINAL AORTIC ANGIOGRAM, LLE ANGIOGRAM, LEFT ANTERIOR TIBIAL ATHERECTOMY, LEFT ANTERIOR TIBIAL ANGIOPLASTY; Surgeon: Archie Olvera MD; Location: [facility]BR[facility]; Service: Vascular; Laterality: N/A; CONTRAST: 50 ML, FT: 2 MIN 54 SEC, DOSE: 66 MGY. AORTOGRAM Left 07/03/2025 Procedure: ARTERIOGRAM LOWER EXTREMITY; Surgeon: Vaughn Hollingsworth DO; Location: [facility]BR[facility]; Service: Vascular; Laterality: Left; FT-6MINS [...] ASSISTED CLOSURE; Surgeon: Cecil Buenrostro Jr., MD;Location: [facility]; Service: Orthopedics; Laterality: Left; INCISION AND DRAINAGE LEG Left 07/25/2023 Procedure: INCISION AND DRAINAGE HEEL, WOUND VAC; Surgeon: Cecil Buenrostro Jr., MD; Location: [facility]; Service: Orthopedics; Laterality: Left; INCISION AND [...] femoral access; Surgeon: Jared Marcano MD; Location: [facility] CATH INVASIVE LOCATION; Service: Cardiovascular; Laterality: Left; Please coordinate with Gautam Patel ([facility]) [phone] who will bring coils LUMBAR DISCECTOMY N/A [...] 250 mL VTB Ordering Provider: Leonie Esquivel [facility] 1,250 mg 200 mL/hr over 75 Minutes Intravenous Every 24 Hours 07/11/25 1200 08/14/25 2359 06/26/25 0831 vancomycin (VANCOCIN) capsule 125 mg Ordering Provider: Vaughn Hollingsworth DO Placed in Followed by Linked Group 125 mg Oral 3 Times Daily 07/10/25 1600 07/17/25 1559 07/09/25 0813 vancomycin (dosing per levels) Status: Discontinued Ordering Provider: Osmany Mccann [facility] Not Applicable Daily 07/09/25 0900 07/11/25 1101 [...] Vaughn Hollingsworth DO Placed in Followed by [facility] 125 mg Oral 4 Times [...] sensitive to Merrem per microbiology lab at [facility]. 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 ; readmission May 2025 and [...] 400-400-40 MG/5ML suspension 15 mL 15 mL [id number] PRN Amanda Bermudez MD [Held by provider] [...] 10 mL Intravenous PRN Ally Jeffers V, CONSTRUCTION COST ESTIMATOR sodium chloride 0.9 % flush 10 mL 10 mL Intravenous Q12H Amanda Bermudez MD 10 mL at 07/01/25 0832 sodium chloride 0.9 % flush 10 mL 10 mL Intravenous PRN Amanda Bermudez MD sodium chloride 0.9 % flush 10 mL 10 mL Intravenous Q12H Dugals Andres MD 10 mL at 07/01/252144 sodium [...] IVPB-VTB 1,000 mg Intravenous Q12H Osmany Mccann, [facility] 250 mL/hr at 07/01/252142 1,000 mg at [...] from the original note were not included. [facility] Medicine Services PROGRESS NOTE Patient Name: Trung Pool : 1955 Date of Admission: 06/25/2025 Primary Care Physician: Gustavo Mehta MD Subjective CC: f/u LLE HPI: Diagonal in bed - says he [...] speech clear Results Reviewed: LAB RESULTS: Lab 07/17/25 0548 07/16/2544607/15/2543107/14/256 07/14/25 0425 07/13/25 0808 WBC 7.10 6.76 [...] Urine Culture - Urine, Indwelling Urethral Catheter [[id number]] (Abnormal) Collected: 07/14/2552 Lab Status: Final result Specimen: Urine from Indwelling Urethral Catheter Updated: 07/15/25 1329 Urine Culture Yeast isolated Narrative: No further workup for yeast Colonization of the urinary tract without infection is common. Treatment is discouraged unless the patient is symptomatic, , or undergoing an invasive urologic procedure. Urine Culture - Urine, Indwelling Urethral Catheter [[id number]] (Abnormal) (Susceptibility) Collected: 06/25/252000 Lab Status: Final [...] Resistant Blood Culture - Blood, Hand, Right [[id number]] (Abnormal) (Susceptibility) Collected: 06/25/25 2030 Lab Status: [...] report. Wound Culture - Swab, Foot, Left [[id number]] (Abnormal) (Susceptibility) Collected: 06/25/25 1818 Lab Status: [...] Culture ID, PCR - Blood, Hand, Right [[id number]] (Abnormal) Collected: 06/25/252029 Lab Status: Final result Specimen: Blood from Hand, Right Updated: 06/26/252101 BCID, PCR Enterococcus faecium. Zee/B (vancomycin resistance gene) not detected. Identification byBCID2 PCR. BOTTLE TYPE Anaerobic Bottle Narrative: Infectious disease consultation is highly recommended to rule out distant foci of infection. MRSA Screen, PCR (Inpatient) - Swab, Nares [[id number]] (Abnormal) Collected: 06/26/2545 Lab Status: Final result Specimen: Swab from Nares Updated: 06/26/25 0850 MRSA PCR Positive Narrative: The negative predictive value of this diagnostic test is high and should only be used to consider de-escalating anti-MRSA therapy. A positive result may indicate colonization with MRSA and must be correlated clinically. Gastrointestinal Panel, PCR - Stool, Per Rectum [[id number]] (Abnormal) Collected: 06/26/2545 Lab Status: Final result [...] Clostridioides difficile Toxin - Stool, Per Rectum [[id number]] (Abnormal) Collected: 06/26/2545 Lab Status: Final result Specimen: Stool from Per Rectum Updated: 06/26/255 Narrative: The following orders were created for panel order Clostridioides difficile Toxin - Stool, Per Rectum. Procedure Abnormality Status --------- ------ Clostridioides difficile...[[id number]] Abnormal Final result Please view results for these tests on the individual orders. Clostridioides difficile Toxin, PCR - Stool, Per Rectum [[id number]] (Abnormal) Collected: 06/26/25 0046 Lab Status: Final [...] disease) [I73.9] Yes 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 [I25.10] Yes Seizure [...] obesity and chronic debility. Last admitted to [facility] 06/02-06/11/25 for LLE cellulitis with failure of outpatient treatment. Wound cultures grew Proteus and concern for ESBL per lab and MRSA. He completed 7 days of IV abx prior to DC home. He has declined LLE amputation He returned to [facility] ED on 06/25/25 for evaluation of hematuria, [...] 07/18. I reached out to vascular surgery CONSTRUCTION COST ESTIMATOR on 07/18, said they would discuss with Dr. Marcano. I have not heard back as of 07/19 Appreciate palliative care assistance with pain management Patient is fearful regarding amputation, does not want to go to a fci, states that if we can avoid sending him to fci he may be agreeable to amputation. He states he does not want to but if ultimately he will end up in fci then he just wants to go home with hospice. Currently agreeable to SNF in order to complete IV antibiotics and continue wound care Hyperkalemia - resolved Potassium of 6.2 07/11 - s/p treatment. Entresto now on hold and K+ has been stable. Would stop Entresto at [place] Acute CAUTI and hematuria, POA History of [...] finasteride. Needs OP referral to urology at [place] for long-term management Diarrhea Norovirus / C. [...] now and outpatient follow up with Dr. Anadn as seizures are likely 2/2 anesthesia/procedure. S/p [...] AM-PAC 6 Clicks Score (PT): 10 (07/18/25 2210) CODE STATUS: Code Status and Medical Interventions: [...] MD - 07/19/2025 3:48 PM EST Attending Mika I supervised care of the patient on day of service with direct care provided by the advanced care provider (APC). Gigi Alcantara MD 07/19/25 * Duglas Andres MD - 07/19/2025 7:38 AM EST Trung Martinez [facility] 1955 [id number] Evaluating Physician: Duglas Andres MD Chief Complaint: [...] excoriation/crusted areas at the toes, hospitalized at [facility] June 04 untilSept2022 and discharged with oral antibiotics for left lower extremity cellulitis; he alsohas nonhealing wounds at his buttocks 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 Admitted to [facility] June 13 2023 diagnosis of sepsis per admission notes, left lower extremity cellulitis with pressure injury at buttocks. 06/15/24 Dr Colón saw and recommended amputation; patient refused ; see his note for detail 06/17/23 Dr buenrostro discussed potential options for heel debridement with patient; MRI no osteomyelitis per radiology; taken to OR PROCEDURE: Left 71068: Debridement of skin and subcutaneous tissue 22777: wound vacuum-assisted closure, wound measuring 2.5 cm [...] 07/25/[address] Buenrostro PROCEDURE: Left 36597: Debridement of skin and subcutaneous tissue 57267: Wound vacuum-assisted closure culture data with MRSA/aneta. [...] subsequent redness and increased pain 01/26/24 Dr May; intervention to left CHIP per vascular team d/w ut Procedure/CPT?? Codes: Procedure(s): LLE arteriogram with run-off possible intervention 01/28/24 Dr. Buenrostro PROCEDURE: Left 28203: 2nd lesser toe amputation at the level of the metatarsophalangeal joint 84639-38: 3rd lesser toe amputation at the level of the metatarsophalangeal joint 02/01/24 FLAT SORTING MACHINE CLERK overnight , shaking epsode 02/04/24 overnight events [...] reports being followed by Dr. Faust in [place] and has seen Dr Oneal (ID in [place]); he is not a good historian with respect to detail. Reports having had some further surgery to the left foot although he is unable to clarify specific date/procedure. Culture at [facility] August 07, 2024 from left foot wound with ESBL Klebsiella pneumoniae and pseudomonas aeruginosa (microbiology lab there reports the Pseudomonas is sensitive to Merrem). He reports his outpatient practitioners had recommended admission to the hospital for IV antibiotics but patient had refused at that time. He also reports that he was in the emergency room at [facility] mid August, no cultures done at that time. Patient reports practitioners at [facility] had recommended higher level amputation but patient has continued to refuse that. He was readmitted to [facility] on August 31, 2024 with worsening odor/drainage andredness/pain to the left lower extremity in recent days/weeks. He reports having been taking outpatient Levaquin; prior history MRSA/PSA and ESBL organisms 09/04/24 Dr Marcano. Procedure/CPT?? Codes: RIGHT AFTER SCHOOL TEACHER access - ultrasound guided Aortogram with LEFT lower extremity run-off LEFT PT angioplasty ([id number] Nanocross) LEFT plantar angioplasty ([id number] Nanocross, 2.8z859xl UltraverseRx) LEFT AT angioplasty (6g242mk Nanocross, 2.5g907fl UltraverseRx) LEFT DP angioplasty (4z927xt Nanocross, 2.8u574rz UltraverseRx) RIGHT AFTER SCHOOL TEACHER closure (Angioseal) 09/07/24 Dr Marcano Procedure/CPT?? Codes: RIGHT AFTER SCHOOL TEACHER access - ultrasound guided Aortogram with LEFT lower extremity run-off LEFT Pr AVF embolization RIGHT AFTER SCHOOL TEACHER closure 09/09/24 moved to ICU overnight with [...] femoral artery and left popliteal artery 6 [place] Angio-Seal closure of right common femoral arteriotomy [...] to make it to appts per him. 11/2/2 Remained confused and agitated 07/14 per nursing; urine culture pending 07/19/25 sleepy at my visit; no fever per nursing; generally fatigued ; nursing reports [place] [id number]; normal wbc, on room air; sleepy at [...] LEFT; Surgeon: Cecil Buenrostro Jr., MD; Location: [facility]; Service: Orthopedics; Laterality: Left; ANTERIOR CERVICAL DISCECTOMY W/ FUSION Bilateral 07/17/2020 Procedure: Cervical discectomy anterior with fusion C3-4; Surgeon: Tyree Tan MD; Location:[facility]; Service: Neurosurgery; Laterality: Bilateral; AORTOGRAM N/A 01/26/2024 Procedure: ABDOMINAL AORTIC ANGIOGRAM, LLE ANGIOGRAM, LEFT ANTERIOR TIBIAL ATHERECTOMY, LEFT ANTERIOR TIBIAL ANGIOPLASTY; Surgeon: Archie Olvera MD; Location: [facility]; Service: Vascular; Laterality: N/A; CONTRAST: 50 ML, FT: 2 MIN 54 SEC, DOSE: 66 MGY. AORTOGRAM Left 07/03/2025 Procedure: ARTERIOGRAM LOWER EXTREMITY; Surgeon: Vaughn Hollingsworth DO; Location: [facility]; Service: Vascular; Laterality: Left; FT-6MINS 24SEC 140 MGY CONTRAST -15ML BACK SURGERY FOR DISC HERNIATION CARDIAC CATHETERIZATION CARDIAC CATHETERIZATION N/A 09/04/2024 Procedure: Peripheral angiography - Left lower extremity angio - Right femoral access; Surgeon: Jared Marcano MD; Location: [facility]IVE LOCATION; Service: Peripheral Vascular; Laterality: [...] Laterality: Left; Please coordinate with Gautam Patel ([facility] [phone] who will bring coils LUMBAR DISCECTOMY N/A [...] mg Oral 2 Times Daily 07/17/25 2100 11/11/25 2059 11/04/25 0742 micafungin sodium (MYCAMINE) 100 mg in [...] 250 mL VTB Ordering Provider: Leonie Esquivel [facility] 1,250 mg 200 mL/hr over 75 Minutes Intravenous Every 24 Hours 07/11/25 1200 08/14/25 2359 06/26/25 0831 vancomycin (VANCOCIN) capsule 125 mg Ordering Provider: Vaughn Hollingsworth DO Placed in Followed by [facility] 125 mg Oral 3 Times [...] vancomycin (VANCOCIN) capsule 125 mg Ordering Provider: IlVaughn rivas DO Placed in Followed by Linked Group [...] 1,000 mg over 30 Minutes Intravenous Once 06/25/25212706/25/257 Review of Systems 07/19/25 Constitutional-- No Fever, [...] Results from last 7 days Lab Units 11/04/25 0548 07/16/25 0447 07/15/25 0432 WBC 10*3/mm3 [...] sensitive to Merrem per microbiology lab at [facility]. 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 ; readmission May 2025 and [...] 400-400-40 MG/5ML suspension 15 mL 15 mL [id number] PRN Amanda Bermudez MD [Held by provider] [...] 10 mL Intravenous PRN Ally Jeffers V, CONSTRUCTION COST ESTIMATOR sodium chloride 0.9 % flush 10 mL [...] IVPB-VTB 1,000 mg Intravenous Q12H Siobhan Osmany Niall, RPH 250 mL/hr at 07/01/252142 1,000 mg [...] Oral Weekly Duglas Andres MD * Annie Huber MS,RD,LD - 07/18/2025 1:59 PM EST Patient Name: Trung Pool Date of : 1955 Admission date: 06/25/2025 Reason for Encounter: Follow-up/Progress Note [facility] Clinical Nutrition Assessment Subjective Subjective [...] LEFT; Surgeon: Cecil Buenrostro Jr., MD; Location: [facility]; Service: Orthopedics; Laterality: Left; ANTERIOR CERVICAL DISCECTOMY W/ FUSION Bilateral 07/17/2020 Procedure: Cervical discectomy anterior with fusion C3-4; Surgeon: Tyree Tan MD; Location: [facility]; Service: Neurosurgery; Laterality: Bilateral; AORTOGRAM N/A 01/26/2024 Procedure: ABDOMINAL AORTIC ANGIOGRAM, LLE ANGIOGRAM, LEFT ANTERIOR TIBIAL ATHERECTOMY, LEFT ANTERIOR TIBIAL ANGIOPLASTY; Surgeon: Archie Olvera MD; Location: [facility]; Service: Vascular; Laterality: N/A; CONTRAST: 50 ML, FT: 2 MIN 54 SEC, DOSE: 66 MGY. AORTOGRAM Left 07/03/2025 Procedure: ARTERIOGRAM LOWER EXTREMITY; Surgeon: Vaughn Hollingsworth DO; Location: [facility]; Service: Vascular; Laterality: Left; FT-6MINS 24SEC 140 MGY CONTRAST -15ML BACK SURGERY FOR DISC HERNIATION CARDIAC CATHETERIZATION CARDIAC CATHETERIZATION N/A 09/04/2024 Procedure: Peripheral angiography - Left lower extremity angio - Right femoral access; Surgeon: Jared Marcano MD; Location: [facility] C[facility] INVASIVE LOCATION; Service: Peripheral Vascular; Laterality: N/A; CORONARY ANGIOPLASTY WITH STENT PLACEMENT stent x 1 INCISION AND DRAINAGE FOOT Left 06/17/2023 Procedure: LEFT FOOT DEBRIDEMENT WOUND VACUUM ASSISTED CLOSURE; Surgeon: Cecil Buenrostro Jr., MD;Location: [facility]; Service: Orthopedics; Laterality: Left; INCISION AND DRAINAGE LEG Left 07/25/2023 Procedure: INCISION AND DRAINAGE HEEL, WOUND VAC; Surgeon: Cecil Buenrostro Jr., MD; Location: [facility]; Service: Orthopedics; Laterality: Left; INCISION AND DRAINAGE LEG Left 07/03/2025 Procedure: DEBRIDEMENT WOUND, PLACEMENT OF WOUND VAC; Surgeon: Vaughn Hollingsworth DO; Location: [facility]; Service: Vascular; Laterality: Left; INTERVENTIONAL RADIOLOGY PROCEDURE N/A 05/02/2019 Procedure: IVC FILTER PLACEMENT; Surgeon: Pedro Zapien MD; Location: [facility] C[facility]VASIVE LOCATION; Service: Interventional Radiology INTERVENTIONAL RADIOLOGY PROCEDURE Left 09/07/2024 Procedure: LEFT peroneal arteriovenous fistula embolization - Right femoral access; Surgeon: Jared Marcano MD; Location: [facility] CATH [facility]VASIVE LOCATION; Service: Cardiovascular; Laterality: Left; Please coordinate with Gautam Bishophop ([facility]) [phone] who will bring coils LUMBAR DISCECTOMY N/A 05/03/2019 Procedure: THORACIC LAMINECTOMY T11-12; Surgeon: Tyree Tan MD; Location: [facility]; Service: Neurosurgery Current Problems Admission Diagnosis: Cellulitis [L03.90] Problem List: Gastroenteritis due to norovirus Primary hypertension Seizure disorder 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 PAD (peripheral artery [...] last 7 days Lab Units 07/17/25 0548 07/16/257 07/15/25 0432 PLATELETS 10*3/mm3 211 185 210 HEMOGLOBIN g/dL [...] & Output (last 3 days) 07/15 0707/16 0707/16 0701 11/04 0700 11/04 0701 11/05 0700 11/05 0701 11/06 0700 P.O. 550 477 687 Total Intake(mL/kg) [...] from the original note were not included. [facility] Medicine Services PROGRESS NOTE Patient Name: Trung Pool : 1955 Date of Admission: 06/25/2025 Primary Care Physician: Gustavo Mehta MD Subjective CC: f/u LLE HPI: In bed. LLE pain the same - took PRN dose of Oxy around 0900 and sleeping soundly when I visited [id number]. Asks if BKA would adequately address issues. [...] -- -- Lab 07/18/25 0337 07/17/25 0548 07/16/2544607/15/2543107/14/25424 SODIUM 137 139 139 139 141 POTASSIUM [...] Urine Culture - Urine, Indwelling Urethral Catheter [[id number]] (Abnormal) Collected: 07/14/2552 Lab Status: Final result Specimen: Urine from Indwelling Urethral Catheter Updated: 07/15/25 1329 Urine Culture Yeast isolated Narrative: No further workup for yeast Colonization of the urinary tract without infection is common. Treatment is discouraged unless the patient is symptomatic, , or undergoing an invasive urologic procedure. Urine Culture - Urine, Indwelling Urethral Catheter [[id number]] (Abnormal) (Susceptibility) Collected: 06/25/252000 Lab Status: Final [...] Resistant Blood Culture - Blood, Hand, Right [[id number]] (Abnormal) (Susceptibility) Collected: 06/25/25 2030 Lab Status: [...] report. Wound Culture - Swab, Foot, Left [[id number]] (Abnormal) (Susceptibility) Collected: 06/25/25 181 Lab Status: [...] Culture ID, PCR - Blood, Hand, Right [[id number]] (Abnormal) Collected: 06/25/252029 Lab Status: Final result Specimen: Blood from Hand, Right Updated: 06/26/252101 BCID, PCR Enterococcus faecium. Zee/B (vancomycin resistance gene) not detected. Identification byBCID2 PCR. BOTTLE TYPE Anaerobic Bottle Narrative: Infectious disease consultation is highly recommended to rule out distant foci of infection. MRSA Screen, PCR (Inpatient) - Swab, Nares [[id number]] (Abnormal) Collected: 06/26/2545 Lab Status: Final result Specimen: Swab from Nares Updated: 06/26/25 0850 MRSA PCR Positive Narrative: The negative predictive value of this diagnostic test is high and should only be used to consider de-escalating anti-MRSA therapy. A positive result may indicate colonization with MRSA and must be correlated clinically. Gastrointestinal Panel, PCR - Stool, Per Rectum [[id number]] (Abnormal) Collected: 06/26/2545 Lab Status: Final result [...] Clostridioides difficile Toxin - Stool, Per Rectum [[id number]] (Abnormal) Collected: 06/26/2545 Lab Status: Final result Specimen: Stool from Per Rectum Updated: 06/26/25 0755 Narrative: The following orders were created for panel order Clostridioides difficile Toxin - Stool, Per Rectum. Procedure Abnormality Status --------- ------ Clostridioides difficile...[[id number]] Abnormal Final result Please view results for these tests on the individual orders. Clostridioides difficile Toxin, PCR - Stool, Per Rectum [[id number]] (Abnormal) Collected: 06/26/25 0046 Lab Status: Final [...] disease) [I73.9] Yes 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 [I25.10] Yes Seizure [...] obesity and chronic debility. Last admitted to [facility] 06/02-06/11/25 for LLE cellulitis with failure of outpatient treatment. Wound cultures grew Proteus and concern for ESBL per lab and MRSA. He completed 7 days of IV abx prior to DC home. He has declined LLE amputation He returned to [facility] ED on 06/25/25 for evaluation of hematuria, [...] does not want to go to a fci, states that if we can avoid sending him to fci he may be agreeable to amputation. He states he does not want to but if ultimately he will end up in fci then he just wants to go home with hospice. Currently agreeable to SNF in order to complete IV antibiotics and continue wound care Hyperkalemia - resolved Potassium of 6.2 07/11 - s/p treatment. Entresto now on hold and K+ has been stable. Would stop Entresto at DC Acute CAUTI and hematuria, POA History of [...] finasteride. Needs OP referral to urology at [place] for long-term management Diarrhea Norovirus / C. [...] signed off Expected Discharge Location and Transportation: [facility] Expected Discharge Expected Discharge Date: 07/20/2025; Expected Discharge Time: VTE Prophylaxis: Pharmacologic VTE prophylaxis orders are present. AM-PAC 6 Clicks Score (PT): 9 (07/18/25 8539) CODE STATUS: Code Status and Medical Interventions: CPR (Attempt to Resuscitate); Full Support Ordered at: 06/25/25 9442 Code Status (Patient has no pulse and is not breathing): CPR (Attempt to Resuscitate) Medical Interventions (Patient has pulse or is breathing): Full Support Level Of Support Discussed With: Patient Mere Armas PA-C 07/18/25 Cosigned by Gigi Alcantara MD at 07/19/2025 3:47 PM EST Associated attestation - Gigi Alcantara MD - 07/19/2025 3:47 PM EST Attending Cossilverio I supervised care of the patient on day of service with direct care provided by the advanced care provider (APC). Gigi Alcantara MD 07/19/25 * Duglas Andres MD - 07/18/2025 7:44 AM EST Trung Martinez Corine 1955 [id number] Evaluating Physician: Duglas Andres MD Chief Complaint: [...] excoriation/crusted areas at the toes, hospitalized at [facility] June 04 untilSept2022 and discharged with oral antibiotics for left lower extremity cellulitis; he alsohas nonhealing wounds at his buttocks 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 Admitted to [facility] June 13 2023 diagnosis of sepsis per admission notes, left lower extremity cellulitis with pressure injury at buttocks. 06/15/24 Dr Colón saw and recommended amputation; patient refused ; see his note for detail 06/17/23 Dr buenrostro discussed potential options for heel debridement with patient; MRI no osteomyelitis per radiology; taken to OR PROCEDURE: Left 79454: Debridement of skin and subcutaneous tissue 95398: wound vacuum-assisted closure, wound measuring 2.5 cm [...] 07/25/[address] Buenrostro PROCEDURE: Left 61047: Debridement of skin and subcutaneous tissue 33757: Wound vacuum-assisted closure culture data with MRSA/aneta. [...] possible intervention 01/28/24 Dr. 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 Faust in [place] and has seen Dr Oneal (ID in [place]); he is not a good historian with respect to detail. Reports having had some further surgery to the left foot although he is unable to clarify specific date/procedure. Culture at [facility] August 07, 2024 from left foot wound with ESBL Klebsiella pneumoniae and pseudomonas aeruginosa (microbiology lab there reports the Pseudomonas is sensitive to Merrem). He reports his outpatient practitioners had recommended admission to the hospital for IV antibiotics but patient had refused at that time. He also reports that he was in the emergency room at [facility] mid August, no cultures done at that time. Patient reports practitioners at [facility] had recommended higher level amputation but patient has continued to refuse that. He was readmitted to [facility] on August 31, 2024 with worsening odor/drainage andredness/pain to the left lower extremity in recent days/weeks. He reports having been taking outpatient Levaquin; prior history MRSA/PSA and ESBL organisms 09/04/24 Dr Marcano. Procedure/CPT?? Codes: RIGHT AFTER SCHOOL TEACHER access - ultrasound guided Aortogram with LEFT lower extremity run-off LEFT PT angioplasty (5v864lu Nanocross) LEFT plantar angioplasty (0i760im Nanocross, 2.3k710ol UltraverseRx) LEFT AT angioplasty (4r857dd Nanocross, 2.9l364zp UltraverseRx) LEFT DP angioplasty (9a553td Nanocross, 2.4n530fy UltraverseRx) RIGHT AFTER SCHOOL TEACHER closure (Angioseal) 09/07/24 Dr Marcano Procedure/CPT?? Codes: RIGHT AFTER SCHOOL TEACHER access - ultrasound guided Aortogram with LEFT lower extremity run-off LEFT Pr AVF embolization RIGHT AFTER SCHOOL TEACHER closure 12/28/24 moved to ICU overnight with reports of [...] femoral artery and left popliteal artery 6 [place] Angio-Seal closure of right common femoral arteriotomy [...] LEFT; Surgeon: Cecil Buenrostro Jr., MD; Location: [facility]; Service: Orthopedics; Laterality: Left; ANTERIOR CERVICAL DISCECTOMY W/ FUSION Bilateral 07/17/2020 Procedure: Cervical discectomy anterior with fusion C3-4; Surgeon: Tyree Tan MD; Location: [facility]; Service: Neurosurgery; Laterality: Bilateral; AORTOGRAM N/A 01/26/2024 Procedure: ABDOMINAL AORTIC ANGIOGRAM, LLE ANGIOGRAM, LEFT ANTERIOR TIBIAL ATHERECTOMY, LEFT ANTERIOR TIBIAL ANGIOPLASTY; Surgeon: Archie Olvera MD; Location: [facility]; Service: Vascular; Laterality: N/A; CONTRAST: 50 ML, FT: 2 MIN 54 SEC, DOSE: 66 MGY. AORTOGRAM Left 07/03/2025 Procedure: ARTERIOGRAM LOWER EXTREMITY; Surgeon: Vaughn Hollingsworth DO; Location: [facility]; Service: Vascular; Laterality: Left; FT-6MINS 24SEC 140 MGY CONTRAST -15ML BACK SURGERY FOR DISC HERNIATION CARDIAC CATHETERIZATION CARDIAC CATHETERIZATION N/A 09/04/2024 Procedure: Peripheral angiography - Left lower extremity angio - Right femoral access; Surgeon: Jared Marcano MD; Location: [facility] LOC[facility]; Service: Peripheral Vascular; Laterality: N/A; CORONARY ANGIOPLASTY WITH STENT PLACEMENT stent x 1 INCISION AND DRAINAGE FOOT Left 06/17/2023 Procedure: LEFT FOOT DEBRIDEMENT WOUND VACUUM ASSISTED CLOSURE; Surgeon: Cecil Buenrostro Jr., MD;Location: [facility]; Service: Orthopedics; Laterality: Left; INCISION AND DRAINAGE LEG Left 07/25/2023 Procedure: INCISION AND DRAINAGE HEEL, WOUND VAC; Surgeon: Cecil Buenrostro Jr., MD; Location: [facility]; Service: Orthopedics; Laterality: Left; INCISION AND [...] Laterality: Left; Please coordinate with Gautam Patel ([facility]) [phone] who will bring coils LUMBAR DISCECTOMY N/A [...] Vaughn Hollingsworth DO Placed in Followed by [facility] 125 mg Oral 3 Times [...] sensitive to Merrem per microbiology lab at [facility]. 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 ; readmission May 2025 and [...] 400-400-40 MG/5ML suspension 15 mL 15 mL [id number] PRN Amanda Bermudez MD [Held by provider] [...] 10 mL Intravenous PRN Ally Jeffers V, CONSTRUCTION COST ESTIMATOR sodium chloride 0.9 % flush 10 mL [...] IVPB-VTB 1,000 mg Intravenous Q12H Osmany Mccann, [facility] 250 mL/hr at 07/01/252142 1,000 mg at [...] Weekly Duglas Andres MD * Leonie Esquivel [facility] - 07/18/2025 7:42 AM EST Images from the original note were not included. Pharmacy Consult - Vancomycin Dosing and Monitoring Trung Pool is a 70 y.o. male receiving vancomycin therapy. Indication: bacteremia Consulting Provider: Dr. Anders (ID) ID Consult: Y Goal AUC: 400-600 [...] days Lab Units 07/18/25 0337 07/17/25 0548 07/16/25446 BUN mg/dL 22.5 21.8 23.1* CREATININE mg/dL 0.82 0.89 0.80 Results from last 7 days Lab Units 07/17/25 0548 07/16/257 07/15/25 0432 WBC 10*3/mm3 7.10 6.76 8.08 Evaluation of [...] Urine Culture - Urine, Indwelling Urethral Catheter [[id number]] (Abnormal) Collected: 07/14/2552 Lab Status: Final result Specimen: Urine from Indwelling Urethral Catheter Updated: 07/15/25 1329 Urine Culture Yeast isolated Narrative: No further workup for yeast Colonization of the urinary tract without infection is common. Treatment is discouraged unless the patient is symptomatic, , or undergoing an invasive urologic procedure. Reported Vancomycin Levels Results from last 7 days Lab Units 07/18/257 07/14/25 0425 VANCOMYCIN RM mcg/mL 19.20 22.70 InsightRX AUC [...] from the original note were not included. [facility] Medicine Services PROGRESS NOTE Patient Name: Trung [...] speech clear Results Reviewed: LAB RESULTS: Lab 07/17/25 0507/16/2544607/15/2543107/14/25 0426 07/14/25 0425 07/13/25 0808 WBC 7.10 6.76 8.08 -- 8.27 6.58 HEMOGLOBIN 9.3* 8.9* 8.9* -- 9.2* 9.4* HEMATOCRIT 31.1* 30.2* 30.1* -- 30.9* 30.1* PLATELETS 211 185 210 -- 251 256 MCV 79.1 80.7 80.9 -- 78.8* 77.2* LACTATE -- -- -- 1.0 -- -- Lab 07/17/2554707/16/2544607/15/2543107/14/2542407/13/25 1848 07/13/25 0808 07/12/25 2333 SODIUM 139 [...] Urine Culture - Urine, Indwelling Urethral Catheter [[id number]] (Abnormal) Collected: 07/14/25 0053 Lab Status: Final result Specimen: Urine from Indwelling Urethral Catheter Updated: 07/15/25 1329 Urine Culture Yeast isolated Narrative: No further workup for yeast Colonization of the urinary tract without infection is common. Treatment is discouraged unless the patient is symptomatic, , or undergoing an invasive urologic procedure. Urine Culture - Urine, Indwelling Urethral Catheter [[id number]] (Abnormal) (Susceptibility) Collected: 06/25/252000 Lab Status: Final [...] Resistant Blood Culture - Blood, Hand, Right [[id number]] (Abnormal) (Susceptibility) Collected: 06/25/252029 Lab Status: Edited [...] report. Wound Culture - Swab, Foot, Left [[id number]] (Abnormal) (Susceptibility) Collected: 06/25/25 181 Lab Status: [...] Culture ID, PCR - Blood, Hand, Right [[id number]] (Abnormal) Collected: 06/25/252029 Lab Status: Final result Specimen: Blood from Hand, Right Updated: 06/26/252101 BCID, PCR Enterococcus faecium. Zee/B (vancomycin resistance gene) not detected. Identification byBCID2 PCR. BOTTLE TYPE Anaerobic Bottle Narrative: Infectious disease consultation is highly recommended to rule out distant foci of infection. MRSA Screen, PCR (Inpatient) - Swab, Nares [[id number]] (Abnormal) Collected: 06/26/2545 Lab Status: Final result Specimen: Swab from Nares Updated: 06/26/25 0850 MRSA PCR Positive Narrative: The negative predictive value of this diagnostic test is high and should only be used to consider de-escalating anti-MRSA therapy. A positive result may indicate colonization with MRSA and must be correlated clinically. Gastrointestinal Panel, PCR - Stool, Per Rectum [[id number]] (Abnormal) Collected: 06/26/2545 Lab Status: Final result [...] Clostridioides difficile Toxin - Stool, Per Rectum [[id number]] (Abnormal) Collected: 06/26/2545 Lab Status: Final result Specimen: Stool from Per Rectum Updated: 06/26/25 0755 Narrative: The following orders were created for panel order Clostridioides difficile Toxin - Stool, Per Rectum. Procedure Abnormality Status --------- ------ Clostridioides difficile...[[id number]] Abnormal Final result Please view results for these tests on the individual orders. Clostridioides difficile Toxin, PCR - Stool, Per Rectum [[id number]] (Abnormal) Collected: 06/26/2545 Lab Status: Final result [...] disease) [I73.9] Yes 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 [I25.10] Yes Seizure [...] obesity and chronic debility. Last admitted to [facility] 06/02-06/11/25 for LLE cellulitis with failure of outpatient treatment. Wound cultures grew Proteus and concern for ESBL per lab and MRSA. He completed 7 days of IV abx prior to DC home. He has declined LLE amputation He returned to [facility] ED on 06/25/25 for evaluation of hematuria, [...] does not want to go to a fci, states that if we can avoid sending him to fci he may be agreeable to amputation. He states he does not want to but if ultimately he will end up in fci then he just wants to go home [...] has been stable. Would stop Entresto at [place] Acute UTI and hematuria History of BPH [...] finasteride. Needs OP referral to urology at [place] for long-term management Diarrhea Norovirus / C. [...] signed off Expected Discharge Location and Transportation: [facility] Expected Discharge Expected Discharge Date: 07/20/2025; Expected Discharge Time: VTE Prophylaxis: Pharmacologic VTE prophylaxis orders are present. AM-PAC 6 Clicks Score (PT): 9 (07/17/25 0814) CODE STATUS: Code Status and Medical Interventions: CPR (Attempt to Resuscitate); Full Support Ordered at: 06/25/25 8180 Code Status (Patient has no pulse and [...] hypertension Seizure disorder 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 PAD (peripheral artery [...] - 07/17/2025 7:40 AM EST Trung Martinez [facility] 1955 [id number] Evaluating Physician: Duglas Andres MD Chief Complaint: [...] excoriation/crusted areas at the toes, hospitalized at [facility] June 04 untilSept2022 and discharged with oral antibiotics for left lower extremity cellulitis; he alsohas nonhealing wounds at his buttocks 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 Admitted to [facility] June 13 2023 diagnosis of sepsis per admission notes, left lower extremity cellulitis with pressure injury at buttocks. 06/15/24 Dr Colón saw and recommended amputation; patient refused ; see his note for detail 06/17/23 Dr buenrostro discussed potential options for heel debridement with patient; MRI no osteomyelitis per radiology; taken to OR PROCEDURE: Left 08019: Debridement of skin and subcutaneous tissue 23294: wound vacuum-assisted closure, wound measuring 2.5 cm [...] 07/25/[address] Buenrostro PROCEDURE: Left 71877: Debridement of skin and subcutaneous tissue 33960: Wound vacuum-assisted closure culture data with MRSA/aneta. [...] possible intervention 01/28/24 Dr. 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 Faust in [place] and has seen Dr Oneal (ID in [place]); he is not a good historian with respect to detail. Reports having had some further surgery to the left foot although he is unable to clarify specific date/procedure. Culture at [facility] August 07, 2024 from left foot wound with ESBL Klebsiella pneumoniae and pseudomonas aeruginosa (microbiology lab there reports the Pseudomonas is sensitive to Merrem). He reports his outpatient practitioners had recommended admission to the hospital for IV antibiotics but patient had refused at that time. He also reports that he was in the emergency room at [facility] mid August, no cultures done at that time. Patient reports practitioners at [facility] had recommended higher level amputation but patient has continued to refuse that. He was readmitted to [facility] on August 31, 2024 with worsening odor/drainage andredness/pain to the left lower extremity in recent days/weeks. He reports having been taking outpatient Levaquin; prior history MRSA/PSA and ESBL organisms 09/04/24 Dr Marcano. Procedure/CPT?? Codes: RIGHT AFTER SCHOOL TEACHER access - ultrasound guided Aortogram with LEFT lower extremity run-off LEFT PT angioplasty (1j154of Nanocross) LEFT plantar angioplasty (9e330fq Nanocross, 2.5e290hk UltraverseRx) LEFT AT angioplasty (9w433ci Nanocross, 2.5b485of UltraverseRx) LEFT DP angioplasty (6l938fc Nanocross, 2.7v617ll UltraverseRx) RIGHT AFTER SCHOOL TEACHER closure (Angioseal) 09/07/24 Dr Marcano Procedure/CPT?? Codes: RIGHT AFTER SCHOOL TEACHER access - ultrasound guided Aortogram with LEFT lower extremity run-off LEFT Pr AVF embolization RIGHT AFTER SCHOOL TEACHER closure 09/09/24 moved to ICU overnight with [...] femoral artery and left popliteal artery 6 [place] Angio-Seal closure of right common femoral arteriotomy [...] LEFT; Surgeon: Cecil Buenrostro Jr., MD; Location: [facility]; Service: Orthopedics; Laterality: Left; ANTERIOR CERVICAL DISCECTOMY W/ FUSION Bilateral 07/17/2020 Procedure: Cervical discectomy anterior with fusion C3-4; Surgeon: Tyree Tan MD; Location: [facility]; Service: Neurosurgery; Laterality: Bilateral; AORTOGRAM N/A 01/26/2024 Procedure: ABDOMINAL AORTIC ANGIOGRAM, LLE ANGIOGRAM, LEFT ANTERIOR TIBIAL ATHERECTOMY, LEFT ANTERIOR TIBIAL ANGIOPLASTY; Surgeon: Archie Olvera MD; Location: [facility]; Service: Vascular; Laterality: N/A; CONTRAST: 50 ML, FT: 2 MIN 54 SEC, DOSE: 66 MGY. AORTOGRAM Left 07/03/2025 Procedure: ARTERIOGRAM LOWER EXTREMITY; Surgeon: Vaughn Hollingsworth DO; Location: [facility]; Service: Vascular; Laterality: Left; FT-6MINS 24SEC 140 MGY CONTRAST -15ML BACK SURGERY FOR DISC HERNIATION CARDIAC CATHETERIZATION CARDIAC CATHETERIZATION N/A 09/04/2024 Procedure: Peripheral angiography - Left lower extremity angio - Right femoral access; Surgeon: Jared Marcano MD; Location: [facility]IVE LOCATION; Service: Peripheral Vascular; Laterality: N/A; CORONARY ANGIOPLASTY WITH STENT PLACEMENT stent x 1 INCISION AND DRAINAGE FOOT Left 06/17/2023 Procedure: LEFT FOOT DEBRIDEMENT WOUND VACUUM ASSISTED CLOSURE; Surgeon: Cecil Buenrostro Jr., MD;Location: [facility]; Service: Orthopedics; Laterality: Left; INCISION AND DRAINAGE LEG Left 07/25/2023 Procedure: INCISION AND DRAINAGE HEEL, WOUND VAC; Surgeon: Cecil Buenrostro Jr., MD; Location: [facility]; Service: Orthopedics; Laterality: Left; INCISION AND DRAINAGE LEG Left 07/03/2025 Procedure: DEBRIDEMENT WOUND, PLACEMENT OF WOUND VAC; Surgeon: Vaughn Hollingsworth DO; Location: [facility]; Service: Vascular; Laterality: Left; INTERVENTIONAL RADIOLOGY PROCEDURE N/A 05/02/2019 Procedure: IVC FILTER PLACEMENT; Surgeon: Pedro Zapien MD; Location: [facility] LOC[facility]; Service: Interventional Radiology INTERVENTIONAL RADIOLOGY PROCEDURE Left 09/07/2024 Procedure: LEFT peroneal arteriovenous fistula embolization - Right femoral access; Surgeon: Jared Marcano MD; Location: [facility]ASIVE LOCATION; Service: Cardiovascular; Laterality: Left; Please coordinate with Gautam Patel ([facility]) [phone] who will bring coils LUMBAR DISCECTOMY N/A [...] Linked Group 125 mg Oral Weekly 08/01/25 0909/19/25 0859 06/26/25 0831 vancomycin (VANCOCIN) capsule 125 mg Ordering Provider: Vaughn Hollingsworth DO Placed in Followed by Linked Group 125 mg Oral Daily 07/25/25 0908/01/25 0859 06/26/25 0831 vancomycin (VANCOCIN) capsule 125 [...] mL MBP Ordering Provider: Ally Jeffers V CONSTRUCTION COST ESTIMATOR 1,000 mg over 30 Minutes Intravenous Once [...] Results from last 7 days Lab Units 11/04/25 0548 SODIUM mmol/L 139 POTASSIUM mmol/L 5.2 [...] sensitive to Merrem per microbiology lab at [facility]. 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 ; readmission May 2025 and [...] 400-400-40 MG/5ML suspension 15 mL 15 mL [id number] PRN Amanda Bermudez MD [Held by provider] [...] Amanda Bermudez MD 1 g at 07/01/25 171 multivitamin with minerals 1 tablet 1 tablet [...] 10 mL Intravenous PRN Ally Jeffers V, CONSTRUCTION COST ESTIMATOR sodium chloride 0.9 % flush 10 mL [...] Osmany Mccann, RPH 250 mL/hr at 07/01/25 2143 1,000 mg at 07/01/252142 vancomycin (VANCOCIN) capsule 125 mg 125 mg Oral 4x Daily Duglas Andres MD 125 mg at 144 Followed by [START ON 07/10/2025] vancomycin (VANCOCIN) [...] from the original note were not included. [facility] Medicine Services PROGRESS NOTE Patient Name: Trung [...] speech clear Results Reviewed: LAB RESULTS: Lab 07/16/2544607/15/2543107/14/25 0426 07/14/25 0425 07/13/25 0808 07/12/25 0454 WBC [...] Urine Culture - Urine, Indwelling Urethral Catheter [[id number]] (Abnormal) Collected: 07/14/2552 Lab Status: Final result Specimen: Urine from Indwelling Urethral Catheter Updated: 07/15/25 1329 Urine Culture Yeast isolated Narrative: No further workup for yeast Colonization of the urinary tract without infection is common. Treatment is discouraged unless the patient is symptomatic, , or undergoing an invasive urologic procedure. Urine Culture - Urine, Indwelling Urethral Catheter [[id number]] (Abnormal) (Susceptibility) Collected: 06/25/252000 Lab Status: Final [...] Resistant Blood Culture - Blood, Hand, Right [[id number]] (Abnormal) (Susceptibility) Collected: 06/25/252029 Lab Status: Edited [...] report. Wound Culture - Swab, Foot, Left [[id number]] (Abnormal) (Susceptibility) Collected: 06/25/251817 Lab Status: Final [...] Culture ID, PCR - Blood, Hand, Right [[id number]] (Abnormal) Collected: 06/25/252029 Lab Status: Final result Specimen: Blood from Hand, Right Updated: 06/26/252101 BCID, PCR Enterococcus faecium. Zee/B (vancomycin resistance gene) not detected. Identification byBCID2 PCR. BOTTLE TYPE Anaerobic Bottle Narrative: Infectious disease consultation is highly recommended to rule out distant foci of infection. MRSA Screen, PCR (Inpatient) - Swab, Nares [[id number]] (Abnormal) Collected: 06/26/2545 Lab Status: Final result Specimen: Swab from Nares Updated: 06/26/25 0850 MRSA PCR Positive Narrative: The negative predictive value of this diagnostic test is high and should only be used to consider de-escalating anti-MRSA therapy. A positive result may indicate colonization with MRSA and must be correlated clinically. Gastrointestinal Panel, PCR - Stool, Per Rectum [[id number]] (Abnormal) Collected: 06/26/2545 Lab Status: Final result [...] Clostridioides difficile Toxin - Stool, Per Rectum [[id number]] (Abnormal) Collected: 06/26/2545 Lab Status: Final result Specimen: Stool from Per Rectum Updated: 06/26/25 6192 Narrative: The following orders were created for panel order Clostridioides difficile Toxin - Stool, Per Rectum. Procedure Abnormality Status --------- ------ Clostridioides difficile...[[id number]] Abnormal Final result Please view results for these tests on the individual orders. Clostridioides difficile Toxin, PCR - Stool, Per Rectum [[id number]] (Abnormal) Collected: 06/26/25 0046 Lab Status: Final [...] [I73.9] Yes ??? 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 [...] obesity and chronic debility. Last admitted to [facility] 06/02-06/11/25 for LLE cellulitis with failure of outpatient treatment. Wound cultures grew Proteus and concern for ESBL per lab and MRSA. He completed 7 days of IV abx prior to DC home. He has declined LLE amputation He returned to [facility] ED on 06/25/25 for evaluation of hematuria, [...] does not want to go to a [facility], states that if we can avoid sending him to fci he may be agreeable to amputation. he states he does not want to but if ultimately he will end up in fci then he just wants to go home [...] finasteride. Plan to follow up outpatient for half-way bladder management Norovirus GI PCR panel with [...] AM-PAC 6 Clicks Score (PT): 8 (07/16/25 0939) CODE STATUS: Code Status and Medical Interventions: [...] MD - 07/16/2025 4:10 PM EST Attending iMka I supervised care of the patient on day of service with direct care provided by the advanced care provider (APC). Gigi Alcantara MD 07/16/25 * Duglas Andres MD - 07/16/2025 8:14 AM EST Trung Martinez [facility] 1955 [id number] Evaluating Physician: Duglas Andres MD Chief Complaint: [...] excoriation/crusted areas at the toes, hospitalized at [facility] June 04 untilSe2022 and discharged with oral antibiotics for left lower extremity cellulitis; he alsohas nonhealing wounds at his buttocks 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 Admitted to [facility] June 13 2023 diagnosis of sepsis per admission notes, left lower extremity cellulitis with pressure injury at buttocks. 06/15/24 Dr Colón saw and recommended amputation; patient refused ; see his note for detail 06/17/23 Dr buenrostro discussed potential options for heel debridement with patient; MRI no osteomyelitis per radiology; taken to OR PROCEDURE: Left 60525: Debridement of skin and subcutaneous tissue 33298: wound vacuum-assisted closure, wound measuring 2.5 cm [...] 07/25/[address] Buenrostro PROCEDURE: Left 82276: Debridement of skin and subcutaneous tissue 13235: Wound vacuum-assisted closure culture data with MRSA/aneta. [...] to left CHIP per vascular team d/w ut Procedure/CPT?? Codes: Procedure(s): LLE arteriogram with run-off possible intervention 01/28/24 Dr. 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 Faust in [place] and has seen Dr Oneal (ID in [place]); he is not a good historian with respect to detail. Reports having had some further surgery to the left foot although he is unable to clarify specific date/procedure. Culture at [facility] August 07, 2024 from left foot wound with ESBL Klebsiella pneumoniae and pseudomonas aeruginosa (microbiology lab there reports the Pseudomonas is sensitive to Merrem). He reports his outpatient practitioners had recommended admission to the hospital for IV antibiotics but patient had refused at that time. He also reports that he was in the emergency room at [facility] mid August, no cultures done at that time. Patient reports practitioners at [facility] had recommended higher level amputation but patient has continued to refuse that. He was readmitted to [facility] on August 31, 2024 with worsening odor/drainage andredness/pain to the left lower extremity in recent days/weeks. He reports having been taking outpatient Levaquin; prior history MRSA/PSA and ESBL organisms 09/04/24 Dr Marcano. Procedure/CPT?? Codes: RIGHT AFTER SCHOOL TEACHER access - ultrasound guided Aortogram with LEFT lower extremity run-off LEFT PT angioplasty (2x907db Nanocross) LEFT plantar angioplasty (6j132cz Nanocross, 2.0s554qx UltraverseRx) LEFT AT angioplasty (2f268ni Nanocross, 2.7x862rv UltraverseRx) LEFT DP angioplasty (5j752mu Nanocross, 2.5d256qe UltraverseRx) RIGHT AFTER SCHOOL TEACHER closure (Angioseal) 09/07/24 Dr Marcano Procedure/CPT?? Codes: RIGHT AFTER SCHOOL TEACHER access - ultrasound guided Aortogram with LEFT lower extremity run-off LEFT Pr AVF embolization RIGHT AFTER SCHOOL TEACHER closure 09/09/24 moved to ICU overnight with [...] femoral artery and left popliteal artery 6 [place] Angio-Seal closure of right common femoral arteriotomy Sharp excisional debridement of left transmetatarsal amputation stump site with 10 blade scalpel down to the level of the skin Application of negative pressure wound therapy wound measures 4.5 cm x 6 cm x 1 mm 10/22/25 postop with encephalopathy after sedation, evaluated by [...] fusion C3-4; Surgeon: Tyree Tan MD; Location: [facility]; Service: Neurosurgery; Laterality: Bilateral; AORTOGRAM N/A [...] ASSISTED CLOSURE; Surgeon: Cecil Buenrostro Jr., MD;Location: [facility]; Service: Orthopedics; Laterality: Left; INCISION AND [...] FILTER PLACEMENT; Surgeon: Pedro Zapien MD; Location: [facility]; Service: Interventional Radiology INTERVENTIONAL RADIOLOGY PROCEDURE Left 09/07/2024 Procedure: LEFT peroneal arteriovenous fistula embolization - Right femoral access; Surgeon: Jared Marcano MD; Location: [facility]; Service: Cardiovascular; Laterality: Left; Please coordinate with Gautamconor Patel ([facility]) [phone] who will bring coils LUMBAR DISCECTOMY N/A [...] sensitive to Merrem per microbiology lab at [facility]. 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 ; readmission May 2025 and [...] 400-400-40 MG/5ML suspension 15 mL 15 mL [id number] PRN Amanda Bermudez MD [Held by provider] [...] 10 mL Intravenous PRN Ally Jeffers V, CONSTRUCTION COST ESTIMATOR sodium chloride 0.9 % flush 10 mL [...] MD - 07/15/2025 8:57 AM EST Trung Martinez [facility] 1955 [id number] Date of Consult: 07/15/2025 Evaluating Physician: Duglas [...] excoriation/crusted areas at the toes, hospitalized at [facility] June 04 until June 08 2023 and discharged with oral antibiotics for left lower extremity cellulitis; he alsohas nonhealing wounds at his buttocks 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 Admitted to [facility] June 13 2023 diagnosis of sepsis per admission notes, left lower extremity cellulitis with pressure injury at buttocks. 06/15/24 Dr Colón saw and recommended amputation; patient refused ; see his note for detail 06/17/23 Dr buenrostro discussed potential options for heel debridement with patient; MRI no osteomyelitis per radiology; taken to OR PROCEDURE: Left 57430: Debridement of skin and subcutaneous tissue 13743: wound vacuum-assisted closure, wound measuring 2.5 cm [...] 07/25/[address] Buenrostro PROCEDURE: Left 90309: Debridement of skin and subcutaneous tissue 31818: Wound vacuum-assisted closure culture data with MRSA/aneta. [...] to left CHIP per vascular team d/w ut Procedure/CPT?? Codes: Procedure(s): LLE arteriogram with run-off possible intervention 01/28/24 Dr. 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 Faust in [place] and has seen Dr Oneal (ID in [place]); he is not a good historian with respect to detail. Reports having had some further surgery to the left foot although he is unable to clarify specific date/procedure. Culture at [facility] August 07, 2024 from left foot wound with ESBL Klebsiella pneumoniae and pseudomonas aeruginosa (microbiology lab there reports the Pseudomonas is sensitive to Merrem). He reports his outpatient practitioners had recommended admission to the hospital for IV antibiotics but patient had refused at that time. He also reports that he was in the emergency room at [facility] mid August, no cultures done at that time. Patient reports practitioners at [facility] had recommended higher level amputation but patient has continued to refuse that. He was readmitted to [facility] on August 31, 2024 with worsening odor/drainage andredness/pain to the left lower extremity in recent days/weeks. He reports having been taking outpatient Levaquin; prior history MRSA/PSA and ESBL organisms 09/04/24 Dr Marcano. Procedure/CPT?? Codes: RIGHT AFTER SCHOOL TEACHER access - ultrasound guided Aortogram with LEFT lower extremity run-off LEFT PT angioplasty ([id number] Nanocross) LEFT plantar angioplasty (9b805kx Nanocross, 2.5u997jp UltraverseRx) LEFT AT angioplasty (8l091iu Nanocross, 2.7v682tf UltraverseRx) LEFT DP angioplasty (2a954sc Nanocross, 2.6i629kp UltraverseRx) RIGHT AFTER SCHOOL TEACHER closure (Angioseal) 09/07/24 Dr Marcano Procedure/CPT?? Codes: RIGHT AFTER SCHOOL TEACHER access - ultrasound guided Aortogram with LEFT lower extremity run-off LEFT Pr AVF embolization RIGHT AFTER SCHOOL TEACHER closure 09/09/24 moved to ICU overnight with [...] femoral artery and left popliteal artery 6 [place] Angio-Seal closure of right common femoral arteriotomy [...] LOWER EXTREMITY; Surgeon: Vaughn Hollingsworth DO; Location: [facility]; Service: Vascular; Laterality: Left; FT-6MINS 24SEC 140 MGY CONTRAST -15ML BACK SURGERY FOR DISC HERNIATION CARDIAC CATHETERIZATION CARDIAC CATHETERIZATION N/A 09/04/2024 Procedure: Peripheral angiography - Left lower extremity angio - Right femoral access; Surgeon: Jared Marcano MD; Location: [facility]; Service: Peripheral Vascular; Laterality: N/A; CORONARY ANGIOPLASTY WITH STENT PLACEMENT stent x 1 INCISION AND DRAINAGE FOOT Left 06/17/2023 Procedure: LEFT FOOT DEBRIDEMENT WOUND VACUUM ASSISTED CLOSURE; Surgeon: Cecil Buenrostro Jr., MD;Location: [facility]; Service: Orthopedics; Laterality: Left; INCISION AND DRAINAGE LEG Left 07/25/2023 Procedure: INCISION AND DRAINAGE HEEL, WOUND VAC; Surgeon: Cecil Buenrostro Jr., MD; Location: [facility]; Service: Orthopedics; Laterality: Left; INCISION AND DRAINAGE LEG Left 07/03/2025 Procedure: DEBRIDEMENT WOUND, PLACEMENT OF WOUND VAC; Surgeon: Vaughn Hollingsworth DO; Location: [facility]; Service: Vascular; Laterality: Left; INTERVENTIONAL RADIOLOGY PROCEDURE N/A 05/02/2019 Procedure: IVC FILTER PLACEMENT; Surgeon: Pedro Zapien MD; Location: [facility]; Service: Interventional Radiology INTERVENTIONAL RADIOLOGY PROCEDURE Left 09/07/2024 Procedure: LEFT peroneal arteriovenous fistula embolization - Right femoral access; Surgeon: Jared Marcano MD; Location: [facility]; Service: Cardiovascular; Laterality: Left; Please coordinate with Gautam Patel ([facility]) [phone] who will bring coils LUMBAR DISCECTOMY N/A 05/03/2019 Procedure: THORACIC LAMINECTOMY T11-12; Surgeon: Tyree Tan MD; Location: [facility]; Service: Neurosurgery Pediatric History Patient Parents [...] 1,000 mg over 30 Minutes Intravenous Once 06/25/25212706/25/25 2237 Review of Systems 07/15/25 otherwise unable Physical [...] sensitive to Merrem per microbiology lab at [facility]. 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 ; readmission May 2025 and [...] 400-400-40 MG/5ML suspension 15 mL 15 mL [id number] PRN Amanda Bermudez MD [Held by provider] [...] 10 mL Intravenous PRN Ally Jeffers V, CONSTRUCTION COST ESTIMATOR sodium chloride 0.9 % flush 10 mL [...] IVPB-VTB 1,000 mg Intravenous Q12H Osmany Mccann, [facility] 250 mL/hr at 07/01/25 2143 1,000 mg at 07/01/25 214 vancomycin (VANCOCIN) [...] Weekly Duglas Andres MD * Margaret Massey, CONSTRUCTION COST ESTIMATOR - 07/15/2025 8:30 AM EST Images from the original note were not included. [facility] Medicine Services PROGRESS NOTE Patient Name: Trung [...] to BSD Results Reviewed: LAB RESULTS: Lab 07/15/25 0432 07/14/25 0426 11/0142407/13/25 0808 07/12/254 07/11/25 042 WBC 8.08 -- 8.27 6.58 8.43 8.79 HEMOGLOBIN 8.9* -- 9.2* 9.4* 10.1* 9.5* HEMATOCRIT 30.1* -- 30.9* 30.1* 33.1* 31.1* PLATELETS 210 -- 251 256 282 255 MCV 80.9 -- 78.8* 77.2* 79.8 78.5* LACTATE -- 1.0 -- -- -- -- Lab 07/15/25 0432 07/14/25 0425 07/13/25 1848 07/13/25 0808 07/12/25 2333 07/12/25 1535 07/12/254 07/11/25 1110 07/11/25422 SODIUM 139 141 -- [...] Urine Culture - Urine, Indwelling Urethral Catheter [[id number]] (Abnormal) (Susceptibility) Collected: 06/25/252000 Lab Status: Final [...] Resistant Blood Culture - Blood, Hand, Right [[id number]] (Abnormal) (Susceptibility) Collected: 06/25/252029 Lab Status: Edited [...] report. Wound Culture - Swab, Foot, Left [[id number]] (Abnormal) (Susceptibility) Collected: 06/25/251817 Lab Status: Final [...] Culture ID, PCR - Blood, Hand, Right [[id number]] (Abnormal) Collected: 06/25/252029 Lab Status: Final result Specimen: Blood from Hand, Right Updated: 06/26/252101 BCID, PCR Enterococcus faecium. Zee/B (vancomycin resistance gene) not detected. Identification byBCID2 PCR. BOTTLE TYPE Anaerobic Bottle Narrative: Infectious disease consultation is highly recommended to rule out distant foci of infection. MRSA Screen, PCR (Inpatient) - Swab, Nares [[id number]] (Abnormal) Collected: 06/26/2545 Lab Status: Final result Specimen: Swab from Nares Updated: 06/26/25 0850 MRSA PCR Positive Narrative: The negative predictive value of this diagnostic test is high and should only be used to consider de-escalating anti-MRSA therapy. A positive result may indicate colonization with MRSA and must be correlated clinically. Gastrointestinal Panel, PCR - Stool, Per Rectum [[id number]] (Abnormal) Collected: 06/26/2545 Lab Status: Final result [...] Clostridioides difficile Toxin - Stool, Per Rectum [[id number]] (Abnormal) Collected: 06/26/2545 Lab Status: Final result Specimen: Stool from Per Rectum Updated: 06/26/25754 Narrative: The following orders were created for panel order Clostridioides difficile Toxin - Stool, Per Rectum. Procedure Abnormality Status --------- ------ Clostridioides difficile...[[id number]] Abnormal Final result Please view results for these tests on the individual orders. Clostridioides difficile Toxin, PCR - Stool, Per Rectum [[id number]] (Abnormal) Collected: 06/26/2545 Lab Status: Final result [...] [I73.9] Yes ??? 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 [...] at this time Remains on antibiotics per WILLEM Yoo as needed Remains on Remeron and Zyprexa [...] does not want to go to a fci, states that if we can avoid sending him to fci he may be agreeable to amputation. he states he does not want to but if ultimately he will end up in fci then he just wants to go home [...] Plan to follow up outpatient for senior care bladder management Norovirus GI PCR panel with [...] AM-PAC 6 Clicks Score (PT): 9 (07/14/25 6251) CODE STATUS: Code Status and Medical Interventions: CPR (Attempt to Resuscitate); Full Support Ordered at: 06/25/25 5760 Code Status (Patient has no pulse and is not breathing): CPR (Attempt to Resuscitate) Medical Interventions (Patient has pulse or is breathing): Full Support Level Of Support Discussed With: Patient Margaret Massey APRN 07/15/25 * Gigi Alcantara MD - 07/14/2025 10:47 AM EDT Images from the original note were not included. [facility] Medicine Services PROGRESS NOTE Patient Name: Trugn Pool : [id number] Date of Admission: 06/25/2025 [...] Urine Culture - Urine, Indwelling Urethral Catheter [[id number]] (Abnormal) (Susceptibility) Collected: 06/25/252000 Lab Status: Final [...] Resistant Blood Culture - Blood, Hand, Right [[id number]] (Abnormal) (Susceptibility) Collected: 06/25/25 2030 Lab Status: [...] report. Wound Culture - Swab, Foot, Left [[id number]] (Abnormal) (Susceptibility) Collected: 06/25/25 1818 Lab Status: [...] Culture ID, PCR - Blood, Hand, Right [[id number]] (Abnormal) Collected: 06/25/252029 Lab Status: Final result Specimen: Blood from Hand, Right Updated: 06/26/252101 BCID, PCR Enterococcus faecium. Zee/B (vancomycin resistance gene) not detected. Identification byBCID2 PCR. BOTTLE TYPE Anaerobic Bottle Narrative: Infectious disease consultation is highly recommended to rule out distant foci of infection. MRSA Screen, PCR (Inpatient) - Swab, Nares [[id number]] (Abnormal) Collected: 06/26/2545 Lab Status: Final result Specimen: Swab from Nares Updated: 06/26/25849 MRSA PCR Positive Narrative: The negative predictive value of this diagnostic test is high and should only be used to consider de-escalating anti-MRSA therapy. A positive result may indicate colonization with MRSA and must be correlated clinically. Gastrointestinal Panel, PCR - Stool, Per Rectum [[id number]] (Abnormal) Collected: 06/26/2545 Lab Status: Final result [...] Clostridioides difficile Toxin - Stool, Per Rectum [[id number]] (Abnormal) Collected: 06/26/2545 Lab Status: Final result Specimen: Stool from Per Rectum Updated: 06/26/25754 Narrative: The following orders were created for panel order Clostridioides difficile Toxin - Stool, Per Rectum. Procedure Abnormality Status --------- ------ Clostridioides difficile...[[id number]] Abnormal Final result Please view results for these tests on the individual orders. Clostridioides difficile Toxin, PCR - Stool, Per Rectum [[id number]] (Abnormal) Collected: 06/26/2545 Lab Status: Final result [...] [I73.9] Yes ??? 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 [...] this time Remains on antibiotics per ID Miguelito as needed Remains on Remeron and Zyprexa [...] does not want to go to a fci, states that if we can avoid sending him to fci he may be agreeable to amputation. He is agreeable for short course of rehab/SNF after amputation however he states he does not want to but if ultimately he will end up in fci then he just wants to go home [...] finasteride. 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 AM-PAC 6 Clicks Score (PT): 11 (07/13/25 3311) CODE STATUS: Code Status and Medical Interventions: CPR (Attempt to Resuscitate); Full Support Ordered at: 06/25/25 5087 Code Status (Patient has no pulse and [...] MD - 07/14/2025 8:47 AM EDT Trung Shipmanroverto 1955 [id number] Date of Consult: 07/14/2025 Evaluating Physician: Duglas [...] excoriation/crusted areas at the toes, hospitalized at [facility] June 04 untilSept2022 and discharged with oral antibiotics for left lower extremity cellulitis; he alsohas nonhealing wounds at his buttocks 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 Admitted to [facility] June 13 2023 diagnosis of sepsis per admission notes, left lower extremity cellulitis with pressure injury at buttocks. 06/15/24 Dr Colón saw and recommended amputation; patient refused ; see his note for detail 06/17/23 Dr buenrostro discussed potential options for heel debridement with patient; MRI no osteomyelitis per radiology; taken to OR PROCEDURE: Left 92100: Debridement of skin and subcutaneous tissue 46672: wound vacuum-assisted closure, wound measuring 2.5 cm [...] 07/25/[address] Buenrostro PROCEDURE: Left 80621: Debridement of skin and subcutaneous tissue 02878: Wound vacuum-assisted closure culture data with MRSA/aneta. [...] possible intervention 01/28/24 Dr. 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 Faust in [place] and has seen Dr Oneal (ID in [place]); he is not a good historian with respect to detail. Reports having had some further surgery to the left foot although he is unable to clarify specific date/procedure. Culture at [facility] August 07, 2024 from left foot wound with ESBL Klebsiella pneumoniae and pseudomonas aeruginosa (microbiology lab there reports the Pseudomonas is sensitive to Merrem). He reports his outpatient practitioners had recommended admission to the hospital for IV antibiotics but patient had refused at that time. He also reports that he was in the emergency room at [facility] mid August, no cultures done at that time. Patient reports practitioners at [facility] had recommended higher level amputation but patient has continued to refuse that. He was readmitted to [facility] on August 31, 2024 with worsening odor/drainage andredness/pain to the left lower extremity in recent days/weeks. He reports having been taking outpatient Levaquin; prior history MRSA/PSA and ESBL organisms 09/04/24 Dr Marcano. Procedure/CPT?? 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 Codes: RIGHT AFTER SCHOOL TEACHER access - ultrasound guided Aortogram with LEFT lower extremity run-off LEFT Pr AVF embolization RIGHT AFTER SCHOOL TEACHER closure 09/09/24 moved to ICU overnight with [...] femoral artery and left popliteal artery 6 [place] Angio-Seal closure of right common femoral arteriotomy [...] fusion C3-4; Surgeon: Tyree Tan MD; Location: [facility]; Service: Neurosurgery; Laterality: Bilateral; AORTOGRAM N/A 01/26/2024 Procedure: ABDOMINAL AORTIC ANGIOGRAM, LLE ANGIOGRAM, LEFT ANTERIOR TIBIAL ATHERECTOMY, LEFT ANTERIOR TIBIAL ANGIOPLASTY; Surgeon: Archie Olvera MD; Location: [facility]; Service: Vascular; Laterality: N/A; CONTRAST: 50 ML, FT: 2 MIN 54 SEC, DOSE: 66 MGY. AORTOGRAM Left 07/03/2025 Procedure: ARTERIOGRAM LOWER EXTREMITY; Surgeon: Vaughn Hollingsworth DO; Location: [facility]; Service: Vascular; Laterality: Left; FT-6MINS [...] ASSISTED CLOSURE; Surgeon: Cecil Buenrostro Jr., MD;Location: [facility]; Service: Orthopedics; Laterality: Left; INCISION AND DRAINAGE LEG Left 07/25/2023 Procedure: INCISION AND DRAINAGE HEEL, WOUND VAC; Surgeon: Cecil Buenrostro Jr., MD; Location: [facility]; Service: Orthopedics; Laterality: Left; INCISION AND [...] Laterality: Left; Please coordinate with Gautam Patel ([facility]) [phone] who will bring coils LUMBAR DISCECTOMY N/A 05/03/2019 Procedure: THORACIC LAMINECTOMY T11-12; Surgeon: Tyree Tan MD; Location: [facility]; Service: Neurosurgery Pediatric History Patient Parents [...] 30 Minutes Intravenous Once 06/26/25 0600 06/25/25 23106/25/252311 piperacillin-tazobactam (ZOSYN) 4.5 g IVPB in 100 [...] last 7 days Lab Units 07/14/25 0425 SODIUM mmol/L 141 POTASSIUM mmol/L 4.9 CHLORIDE [...] sensitive to Merrem per microbiology lab at [facility]. 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 ; readmission May 2025 and [...] 400-400-40 MG/5ML suspension 15 mL 15 mL [id number] PRN Amanda Bermudez MD [Held by provider] [...] mg 20 mg Oral BID Arnoldo Ca, OlgaD 20 mg at 07/02/25 0649 finasteride [...] 10 mL Intravenous PRN Ally Jeffers V, CONSTRUCTION COST ESTIMATOR sodium chloride 0.9 % flush 10 mL [...] IVPB-VTB 1,000 mg Intravenous Q12H Osmany Mccann, [facility] 250 mL/hr at 07/01/252142 1,000 mg at [...] Weekly Duglas Andres MD * Osmany Mccann [facility] - 07/14/2025 7:04 AM EDT Pharmacy Consult [...] 07/13/2025 3:49 PM EDT Continued Stay Note [facility] Patient Name: Trung Pool Today's Date: 07/13/2025 Admit Date: 06/25/2025 Plan: Rehab Discharge Plan Row Name 07/13/25 1548 Plan Plan Rehab Plan Comments patient relations liaison continues to follow on the periphery while placement is found for short term rehab. Please call [phone] if can be of further assistance. Discharge Codes No documentation. Expected Discharge Date and Time Expected Discharge Date Expected Discharge Time Jul 13, 2025 Stacey Garcia RN * Gigi Alcantara MD - 07/13/2025 11:37 AM EDT Images from the original note were not included. [facility] Medicine Services PROGRESS NOTE Patient Name: Trung [...] Urine Culture - Urine, Indwelling Urethral Catheter [[id number]] (Abnormal) (Susceptibility) Collected: 06/25/252000 Lab Status: Final [...] Resistant Blood Culture - Blood, Hand, Right [[id number]] (Abnormal) (Susceptibility) Collected: 06/25/252029 Lab Status: Edited [...] report. Wound Culture - Swab, Foot, Left [[id number]] (Abnormal) (Susceptibility) Collected: 06/25/251817 Lab Status: Final [...] Culture ID, PCR - Blood, Hand, Right [[id number]] (Abnormal) Collected: 06/25/252029 Lab Status: Final result Specimen: Blood from Hand, Right Updated: 06/26/252101 BCID, PCR Enterococcus faecium. Zee/B (vancomycin resistance gene) not detected. Identification by BCID2 PCR. BOTTLE TYPE Anaerobic Bottle Narrative: Infectious disease consultation is highly recommended to rule out distant foci of infection. MRSA Screen, PCR (Inpatient) - Swab, Nares [[id number]] (Abnormal) Collected: 06/26/2545 Lab Status: Final result Specimen: Swab from Nares Updated: 06/26/25 0850 MRSA PCR Positive Narrative: The negative predictive value of this diagnostic test is high and should only be used to consider de-escalating anti-MRSA therapy. A positive result may indicate colonization with MRSA and must be correlated clinically. Gastrointestinal Panel, PCR - Stool, Per Rectum [[id number]] (Abnormal) Collected: 06/26/2545 Lab Status: Final result [...] Clostridioides difficile Toxin - Stool, Per Rectum [[id number]] (Abnormal) Collected: 06/26/2545 Lab Status: Final result Specimen: Stool from Per Rectum Updated: 06/26/25 0095 Narrative: The following orders were created for panel order Clostridioides difficile Toxin - Stool, Per Rectum. Procedure Abnormality Status --------- ------ Clostridioides difficile...[[id number]] Abnormal Final result Please view results for these tests on the individual orders. Clostridioides difficile Toxin, PCR - Stool, Per Rectum [[id number]] (Abnormal) Collected: 06/26/2545 Lab Status: Final result Specimen: Stool from Per Rectum Updated: 06/26/25 0755 Toxigenic C. difficile by PCR Detected Narrative: DNA from a toxigenic strain of C.difficile has been detected. Microbiology Results Abnormal Procedure Component Value - Date/Time Urine Culture - Urine, Indwelling Urethral Catheter [[id number]] (Abnormal) (Susceptibility) Collected: 06/25/252000 Lab Status: Final [...] Resistant Blood Culture - Blood, Hand, Right [[id number]] (Abnormal) (Susceptibility) Collected: 06/25/252029 Lab Status: Edited [...] report. Wound Culture - Swab, Foot, Left [[id number]] (Abnormal) (Susceptibility) Collected: 06/25/25 1818 Lab Status: [...] Culture ID, PCR - Blood, Hand, Right [[id number]] (Abnormal) Collected: 06/25/252029 Lab Status: Final result Specimen: Blood from Hand, Right Updated: 06/26/252101 BCID, PCR Enterococcus faecium. Zee/B (vancomycin resistance gene) not detected. Identification by BCID2 PCR. BOTTLE TYPE Anaerobic Bottle Narrative: Infectious disease consultation is highly recommended to rule out distant foci of infection. MRSA Screen, PCR (Inpatient) - Swab, Nares [[id number]] (Abnormal) Collected: 06/26/2545 Lab Status: Final result Specimen: Swab from Nares Updated: 06/26/25 0850 MRSA PCR Positive Narrative: The negative predictive value of this diagnostic test is high and should only be used to consider de-escalating anti-MRSA therapy. A positive result may indicate colonization with MRSA and must be correlated clinically. Gastrointestinal Panel, PCR - Stool, Per Rectum [[id number]] (Abnormal) Collected: 06/26/2545 Lab Status: Final result [...] Clostridioides difficile Toxin - Stool, Per Rectum [[id number]] (Abnormal) Collected: 06/26/2545 Lab Status: Final result Specimen: Stool from Per Rectum Updated: 06/26/25754 Narrative: The following orders were created for panel order Clostridioides difficile Toxin - Stool, Per Rectum. Procedure Abnormality Status --------- ------ Clostridioides difficile...[[id number]] Abnormal Final result Please view results for these tests on the individual orders. Clostridioides difficile Toxin, PCR - Stool, Per Rectum [[id number]] (Abnormal) Collected: 06/26/2545 Lab Status: Final result Specimen: Stool from Per Rectum Updated: 06/26/25754 Toxigenic C. difficile by PCR Detected Narrative: DNA from a toxigenic strain of C.difficile has been detected. Microbiology Results Abnormal Procedure Component Value - Date/Time Urine Culture - Urine, Indwelling Urethral Catheter [[id number]] (Abnormal) (Susceptibility) Collected: 06/25/252000 Lab Status: Final [...] Resistant Blood Culture - Blood, Hand, Right [[id number]] (Abnormal) (Susceptibility) Collected: 06/25/25 2030 Lab Status: [...] report. Wound Culture - Swab, Foot, Left [[id number]] (Abnormal) (Susceptibility) Collected: 06/25/25 1818 Lab Status: [...] Culture ID, PCR - Blood, Hand, Right [[id number]] (Abnormal) Collected: 06/25/252029 Lab Status: Final result Specimen: Blood from Hand, Right Updated: 06/26/252101 BCID, PCR Enterococcus faecium. Zee/B (vancomycin resistance gene) not detected. Identification by BCID2 PCR. BOTTLE TYPE Anaerobic Bottle Narrative: Infectious disease consultation is highly recommended to rule out distant foci of infection. MRSA Screen, PCR (Inpatient) - Swab, Nares [[id number]] (Abnormal) Collected: 06/26/2545 Lab Status: Final result Specimen: Swab from Nares Updated: 06/26/25849 MRSA PCR Positive Narrative: The negative predictive value of this diagnostic test is high and should only be used to consider de-escalating anti-MRSA therapy. A positive result may indicate colonization with MRSA and must be correlated clinically. Gastrointestinal Panel, PCR - Stool, Per Rectum [[id number]] (Abnormal) Collected: 06/26/2545 Lab Status: Final result [...] Clostridioides difficile Toxin - Stool, Per Rectum [[id number]] (Abnormal) Collected: 06/26/2545 Lab Status: Final result Specimen: Stool from Per Rectum Updated: 06/26/25 075 Narrative: The following orders were created for panel order Clostridioides difficile Toxin - Stool, Per Rectum. Procedure Abnormality Status --------- ------ Clostridioides difficile...[[id number]] Abnormal Final result Please view results for these tests on the individual orders. Clostridioides difficile Toxin, PCR - Stool, Per Rectum [[id number]] (Abnormal) Collected: 06/26/2545 Lab Status: Final result Specimen: Stool from Per Rectum Updated: 06/26/25754 Toxigenic C. difficile by PCR Detected Narrative: DNA from a toxigenic strain of C.difficile has been detected. Microbiology Results Abnormal Procedure Component Value - Date/Time Urine Culture - Urine, Indwelling Urethral Catheter [[id number]] (Abnormal) (Susceptibility) Collected: 06/25/252000 Lab Status: Final [...] Resistant Blood Culture - Blood, Hand, Right [[id number]] (Abnormal) (Susceptibility) Collected: 06/25/252029 Lab Status: Edited [...] report. Wound Culture - Swab, Foot, Left [[id number]] (Abnormal) (Susceptibility) Collected: 06/25/25 1818 Lab Status: [...] Culture ID, PCR - Blood, Hand, Right [[id number]] (Abnormal) Collected: 06/25/25 2030 Lab Status: Final result Specimen: Blood from Hand, Right Updated: 06/26/252101 BCID, PCR Enterococcus faecium. Zee/B (vancomycin resistance gene) not detected. Identification by BCID2 PCR. BOTTLE TYPE Anaerobic Bottle Narrative: Infectious disease consultation is highly recommended to rule out distant foci of infection. MRSA Screen, PCR (Inpatient) - Swab, Nares [[id number]] (Abnormal) Collected: 06/26/2545 Lab Status: Final result Specimen: Swab from Nares Updated: 06/26/25849 MRSA PCR Positive Narrative: The negative predictive value of this diagnostic test is high and should only be used to consider de-escalating anti-MRSA therapy. A positive result may indicate colonization with MRSA and must be correlated clinically. Gastrointestinal Panel, PCR - Stool, Per Rectum [[id number]] (Abnormal) Collected: 06/26/2545 Lab Status: Final result [...] Clostridioides difficile Toxin - Stool, Per Rectum [[id number]] (Abnormal) Collected: 06/26/2545 Lab Status: Final result Specimen: Stool from Per Rectum Updated: 06/26/255 Narrative: The following orders were created for panel order Clostridioides difficile Toxin - Stool, Per Rectum. Procedure Abnormality Status --------- ------ Clostridioides difficile...[[id number]] Abnormal Final result Please view results for these tests on the individual orders. Clostridioides difficile Toxin, PCR - Stool, Per Rectum [[id number]] (Abnormal) Collected: 06/26/2545 Lab Status: Final result Specimen: Stool from Per Rectum Updated: 06/26/25754 Toxigenic C. difficile by PCR Detected Narrative: DNA from a toxigenic strain of C.difficile has been detected. Microbiology Results Abnormal Procedure Component Value - Date/Time Urine Culture - Urine, Indwelling Urethral Catheter [[id number]] (Abnormal) (Susceptibility) Collected: 06/25/252000 Lab Status: Final [...] Resistant Blood Culture - Blood, Hand, Right [[id number]] (Abnormal) (Susceptibility) Collected: 06/25/252029 Lab Status: Edited [...] report. Wound Culture - Swab, Foot, Left [[id number]] (Abnormal) (Susceptibility) Collected: 06/25/25 1818 Lab Status: [...] Culture ID, PCR - Blood, Hand, Right [[id number]] (Abnormal) Collected: 06/25/252029 Lab Status: Final result Specimen: Blood from Hand, Right Updated: 06/26/252101 BCID, PCR Enterococcus faecium. Zee/B (vancomycin resistance gene) not detected. Identification by BCID2 PCR. BOTTLE TYPE Anaerobic Bottle Narrative: Infectious disease consultation is highly recommended to rule out distant foci of infection. MRSA Screen, PCR (Inpatient) - Swab, Nares [[id number]] (Abnormal) Collected: 06/26/2545 Lab Status: Final result Specimen: Swab from Nares Updated: 06/26/25 0850 MRSA PCR Positive Narrative: The negative predictive value of this diagnostic test is high and should only be used to consider de-escalating anti-MRSA therapy. A positive result may indicate colonization with MRSA and must be correlated clinically. Gastrointestinal Panel, PCR - Stool, Per Rectum [[id number]] (Abnormal) Collected: 06/26/2545 Lab Status: Final result [...] Clostridioides difficile Toxin - Stool, Per Rectum [[id number]] (Abnormal) Collected: 06/26/2545 Lab Status: Final result Specimen: Stool from Per Rectum Updated: 06/26/25754 Narrative: The following orders were created for panel order Clostridioides difficile Toxin - Stool, Per Rectum. Procedure Abnormality Status --------- ------ Clostridioides difficile...[[id number]] Abnormal Final result Please view results for these tests on the individual orders. Clostridioides difficile Toxin, PCR - Stool, Per Rectum [[id number]] (Abnormal) Collected: 06/26/2545 Lab Status: Final result Specimen: Stool from Per Rectum Updated: 06/26/25754 Toxigenic C. difficile by PCR Detected Narrative: DNA from a toxigenic strain of C.difficile has been detected. Microbiology Results Abnormal Procedure Component Value - Date/Time Urine Culture - Urine, Indwelling Urethral Catheter [[id number]] (Abnormal) (Susceptibility) Collected: 06/25/252000 Lab Status: Final [...] Resistant Blood Culture - Blood, Hand, Right [[id number]] (Abnormal) (Susceptibility) Collected: 06/25/252029 Lab Status: Edited [...] report. Wound Culture - Swab, Foot, Left [[id number]] (Abnormal) (Susceptibility) Collected: 06/25/251817 Lab Status: Final [...] Culture ID, PCR - Blood, Hand, Right [[id number]] (Abnormal) Collected: 06/25/252029 Lab Status: Final result Specimen: Blood from Hand, Right Updated: 06/26/252101 BCID, PCR Enterococcus faecium. Zee/B (vancomycin resistance gene) not detected. Identification by BCID2 PCR. BOTTLE TYPE Anaerobic Bottle Narrative: Infectious disease consultation is highly recommended to rule out distant foci of infection. MRSA Screen, PCR (Inpatient) - Swab, Nares [[id number]] (Abnormal) Collected: 06/26/2545 Lab Status: Final result Specimen: Swab from Nares Updated: 06/26/25 0850 MRSA PCR Positive Narrative: The negative predictive value of this diagnostic test is high and should only be used to consider de-escalating anti-MRSA therapy. A positive result may indicate colonization with MRSA and must be correlated clinically. Gastrointestinal Panel, PCR - Stool, Per Rectum [[id number]] (Abnormal) Collected: 06/26/2545 Lab Status: Final result [...] Clostridioides difficile Toxin - Stool, Per Rectum [[id number]] (Abnormal) Collected: 06/26/2545 Lab Status: Final result Specimen: Stool from Per Rectum Updated: 06/26/25 0755 Narrative: The following orders were created for panel order Clostridioides difficile Toxin - Stool, Per Rectum. Procedure Abnormality Status --------- ------ Clostridioides difficile...[[id number]] Abnormal Final result Please view results for these tests on the individual orders. Clostridioides difficile Toxin, PCR - Stool, Per Rectum [[id number]] (Abnormal) Collected: 06/26/25 0046 Lab Status: Final result Specimen: Stool from Per Rectum Updated: 06/26/25 0755 Toxigenic C. difficile by PCR Detected Narrative: DNA from a toxigenic strain of C.difficile has been detected. Microbiology Results Abnormal Procedure Component Value - Date/Time Urine Culture - Urine, Indwelling Urethral Catheter [[id number]] (Abnormal) (Susceptibility) Collected: 06/25/252000 Lab Status: Final [...] Resistant Blood Culture - Blood, Hand, Right [[id number]] (Abnormal) (Susceptibility) Collected: 06/25/252029 Lab Status: Edited [...] report. Wound Culture - Swab, Foot, Left [[id number]] (Abnormal) (Susceptibility) Collected: 06/25/25 1818 Lab Status: [...] Culture ID, PCR - Blood, Hand, Right [[id number]] (Abnormal) Collected: 06/25/25 2030 Lab Status: Final result Specimen: Blood from Hand, Right Updated: 06/26/252101 BCID, PCR Enterococcus faecium. Zee/B (vancomycin resistance gene) not detected. Identification by BCID2 PCR. BOTTLE TYPE Anaerobic Bottle Narrative: Infectious disease consultation is highly recommended to rule out distant foci of infection. MRSA Screen, PCR (Inpatient) - Swab, Nares [[id number]] (Abnormal) Collected: 06/26/25 0046 Lab Status: Final result Specimen: Swab from Nares Updated: 06/26/2550 MRSA PCR Positive Narrative: The negative predictive value of this diagnostic test is high and should only be used to consider de-escalating anti-MRSA therapy. A positive result may indicate colonization with MRSA and must be correlated clinically. Gastrointestinal Panel, PCR - Stool, Per Rectum [[id number]] (Abnormal) Collected: 06/26/2545 Lab Status: Final result [...] Clostridioides difficile Toxin - Stool, Per Rectum [[id number]] (Abnormal) Collected: 06/26/2545 Lab Status: Final result Specimen: Stool from Per Rectum Updated: 06/26/25754 Narrative: The following orders were created for panel order Clostridioides difficile Toxin - Stool, Per Rectum. Procedure Abnormality Status --------- ------ Clostridioides difficile...[[id number]] Abnormal Final result Please view results for these tests on the individual orders. Clostridioides difficile Toxin, PCR - Stool, Per Rectum [[id number]] (Abnormal) Collected: 06/26/2545 Lab Status: Final result Specimen: Stool from Per Rectum Updated: 06/26/25754 Toxigenic C. difficile by PCR Detected Narrative: DNA from a toxigenic strain of C.difficile has been detected. Microbiology Results Abnormal Procedure Component Value - Date/Time Urine Culture - Urine, Indwelling Urethral Catheter [[id number]] (Abnormal) (Susceptibility) Collected: 06/25/252000 Lab Status: Final [...] Resistant Blood Culture - Blood, Hand, Right [[id number]] (Abnormal) (Susceptibility) Collected: 06/25/252029 Lab Status: Edited [...] report. Wound Culture - Swab, Foot, Left [[id number]] (Abnormal) (Susceptibility) Collected: 06/25/25 181 Lab Status: [...] Culture ID, PCR - Blood, Hand, Right [[id number]] (Abnormal) Collected: 06/25/252029 Lab Status: Final result Specimen: Blood from Hand, Right Updated: 06/26/252101 BCID, PCR Enterococcus faecium. Zee/B (vancomycin resistance gene) not detected. Identification by BCID2 PCR. BOTTLE TYPE Anaerobic Bottle Narrative: Infectious disease consultation is highly recommended to rule out distant foci of infection. MRSA Screen, PCR (Inpatient) - Swab, Nares [[id number]] (Abnormal) Collected: 06/26/2545 Lab Status: Final result Specimen: Swab from Nares Updated: 06/26/2550 MRSA PCR Positive Narrative: The negative predictive value of this diagnostic test is high and should only be used to consider de-escalating anti-MRSA therapy. A positive result may indicate colonization with MRSA and must be correlated clinically. Gastrointestinal Panel, PCR - Stool, Per Rectum [[id number]] (Abnormal) Collected: 06/26/2545 Lab Status: Final result [...] Clostridioides difficile Toxin - Stool, Per Rectum [[id number]] (Abnormal) Collected: 06/26/2545 Lab Status: Final result Specimen: Stool from Per Rectum Updated: 06/26/25754 Narrative: The following orders were created for panel order Clostridioides difficile Toxin - Stool, Per Rectum. Procedure Abnormality Status --------- ------ Clostridioides difficile...[[id number]] Abnormal Final result Please view results for these tests on the individual orders. Clostridioides difficile Toxin, PCR - Stool, Per Rectum [[id number]] (Abnormal) Collected: 06/26/2545 Lab Status: Final result [...] [I73.9] Yes ??? 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 [...] does not want to go to a fci, states that if we can avoid sending him to fci he may be agreeable to amputation. He is agreeable for short course of rehab/SNF after amputation however he states he does not want to but if ultimately he will end up in fci then he just wants to go home [...] Plan to follow up outpatient for senior care bladder management Norovirus GI PCR panel with [...] AM-PAC 6 Clicks Score (PT): 10 (07/13/25 5696) CODE STATUS: Code Status and Medical Interventions: CPR (Attempt to Resuscitate); Full Support Ordered at: 06/25/25 7630 Code Status (Patient has no pulse and is not breathing): CPR (Attempt to Resuscitate) Medical Interventions (Patient has pulse or is breathing): Full Support Level Of Support Discussed With: Patient Gigi Alcantara MD 07/13/25 * Duglas Andres MD - 07/13/2025 7:55 AM EDT Trung Martinez Corine 1955 [id number] Date of Consult: 07/13/2025 Evaluating Physician: Duglas [...] excoriation/crusted areas at the toes, hospitalized at [facility] June 04 untilSept2022 and discharged with oral antibiotics for left lower extremity cellulitis; he alsohas nonhealing wounds at his buttocks 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 Admitted to [facility] June 13 2023 diagnosis of sepsis per admission notes, left lower extremity cellulitis with pressure injury at buttocks. 06/15/24 Dr Colón saw and recommended amputation; patient refused ; see his note for detail 06/17/23 Dr buenrostro discussed potential options for heel debridement with patient; MRI no osteomyelitis per radiology; taken to OR PROCEDURE: Left 04969: Debridement of skin and subcutaneous tissue 26957: wound vacuum-assisted closure, wound measuring 2.5 cm [...] 07/25/[address] Buenrostro PROCEDURE: Left 58740: Debridement of skin and subcutaneous tissue 26250: Wound vacuum-assisted closure culture data with MRSA/aneta. [...] possible intervention 01/28/24 Dr. 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 Faust in [place] and has seen Dr Oneal (ID in [place]); he is not a good historian with respect to detail. Reports having had some further surgery to the left foot although he is unable to clarify specific date/procedure. Culture at [facility] August 07, 2024 from left foot wound with ESBL Klebsiella pneumoniae and pseudomonas aeruginosa (microbiology lab there reports the Pseudomonas is sensitive to Merrem). He reports his outpatient practitioners had recommended admission to the hospital for IV antibiotics but patient had refused at that time. He also reports that he was in the emergency room at [facility] mid August, no cultures done at that time. Patient reports practitioners at [facility] had recommended higher level amputation but patient has continued to refuse that. He was readmitted to [facility] on August 31, 2024 with worsening odor/drainage andredness/pain to the left lower extremity in recent days/weeks. He reports having been taking outpatient Levaquin; prior history MRSA/PSA and ESBL organisms 09/04/24 Dr Marcano. Procedure/CPT?? Codes: RIGHT AFTER SCHOOL TEACHER access - ultrasound guided Aortogram with LEFT lower extremity run-off LEFT PT angioplasty (2p973yl Nanocross) LEFT plantar angioplasty (6q970rw Nanocross, 2.6k016rv UltraverseRx) LEFT AT angioplasty (3h813mr Nanocross, 2.9q383qj UltraverseRx) LEFT DP angioplasty (9k917ac Nanocross, 2.8m409bs UltraverseRx) RIGHT AFTER SCHOOL TEACHER closure (Angioseal) 09/07/24 Dr Marcano Procedure/CPT?? Codes: RIGHT AFTER SCHOOL TEACHER access - ultrasound guided Aortogram with LEFT lower extremity run-off LEFT Pr AVF embolization RIGHT AFTER SCHOOL TEACHER closure 09/09/24 moved to ICU overnight with [...] femoral artery and left popliteal artery 6 [place] Angio-Seal closure of right common femoral arteriotomy [...] TIBIAL ANGIOPLASTY; Surgeon: Archie Olvera MD; Location: [facility]; Service: Vascular; Laterality: N/A; CONTRAST: 50 ML, FT: 2 MIN 54 SEC, DOSE: 66 MGY. AORTOGRAM Left 07/03/2025 Procedure: ARTERIOGRAM LOWER EXTREMITY; Surgeon: Vaughn Hollingsworth DO; Location: [facility]; Service: Vascular; Laterality: Left; FT-6MINS 24SEC 140 MGY CONTRAST -15ML BACK SURGERY FOR DISC HERNIATION CARDIAC CATHETERIZATION CARDIAC CATHETERIZATION N/A 09/04/2024 Procedure: Peripheral angiography - Left lower extremity angio - Right femoral access; Surgeon: Jared Marcano MD; Location: [facility] LOC[facility]; Service: Peripheral Vascular; Laterality: N/A; CORONARY ANGIOPLASTY WITH STENT PLACEMENT stent x 1 INCISION AND DRAINAGE FOOT Left 06/17/2023 Procedure: LEFT FOOT DEBRIDEMENT WOUND VACUUM ASSISTED CLOSURE; Surgeon: Cecil Buenrostro Jr., MD;Location: [facility] OR; Service: Orthopedics; Laterality: Left; INCISION AND DRAINAGE LEG Left 07/25/2023 Procedure: INCISION AND DRAINAGE HEEL, WOUND VAC; Surgeon: Cecil Buenrostro Jr., MD; Location: [facility] OR; Service: Orthopedics; Laterality: Left; INCISION AND DRAINAGE LEG Left 07/03/2025 Procedure: DEBRIDEMENT WOUND, PLACEMENT OF WOUND VAC; Surgeon: Vaughn Hollingsworth DO; Location: [facility]; Service: Vascular; Laterality: Left; INTERVENTIONAL RADIOLOGY PROCEDURE N/A 05/02/2019 Procedure: IVC FILTER PLACEMENT; Surgeon: Pedro Zapien MD; Location: [facility] LOC[facility]; Service: Interventional Radiology INTERVENTIONAL RADIOLOGY PROCEDURE Left 09/07/2024 Procedure: LEFT peroneal arteriovenous fistula embolization - Right femoral access; Surgeon: Jared Marcano MD; Location: [facility] LOCATION; Service: Cardiovascular; Laterality: Left; Please coordinate with Gautam Patel ([facility]) [phone] who will bring coils LUMBAR DISCECTOMY N/A 05/03/2019 Procedure: THORACIC LAMINECTOMY T11-12; Surgeon: Tyree Tan MD; Location: [facility] OR; Service: Neurosurgery Pediatric History Patient Parents [...] VTB Status: Discontinued Ordering Provider: Osmany Mccann Niall, RPH 1,250 mg 200 mL/hr over 75 Minutes Intravenous Every 12 Hours 06/27/25 2100 06/28/25 0724 06/27/25 0856 vancomycin 2500 mg/500 mL 0.9% NS IVPB ([facility]) Ordering Provider: Osmany Mccann, RPH 2,500 mg over 150 Minutes Intravenous Once 06/27/25 0945 06/27/25 1150 06/27/25 0808 vancomycin 2250 mg/500 mL 0.9% NS IVPB ([facility]) Status: Discontinued Ordering Provider: Osmany Mccann Niall, [...] from last 7 days Lab Units 07/12/25 1452 07/11/25 0423 07/09/25 0712 WBC 10*3/mm3 8.43 [...] sensitive to Merrem per microbiology lab at [facility]. 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 [facility] Medicine Services PROGRESS NOTE Patient Name: Trung [...] Urine Culture - Urine, Indwelling Urethral Catheter [[id number]] (Abnormal) (Susceptibility) Collected: 06/25/252000 Lab Status: Final [...] Resistant Blood Culture - Blood, Hand, Right [[id number]] (Abnormal) (Susceptibility) Collected: 06/25/252029 Lab Status: Edited [...] report. Wound Culture - Swab, Foot, Left [[id number]] (Abnormal) (Susceptibility) Collected: 06/25/25 1818 Lab Status: [...] Culture ID, PCR - Blood, Hand, Right [[id number]] (Abnormal) Collected: 06/25/25 2030 Lab Status: Final result Specimen: Blood from Hand, Right Updated: 06/26/252101 BCID, PCR Enterococcus faecium. Zee/B (vancomycin resistance gene) not detected. Identification by BCID2 PCR. BOTTLE TYPE Anaerobic Bottle Narrative: Infectious disease consultation is highly recommended to rule out distant foci of infection. MRSA Screen, PCR (Inpatient) - Swab, Nares [[id number]] (Abnormal) Collected: 06/26/25 0046 Lab Status: Final result Specimen: Swab from Nares Updated: 06/26/2550 MRSA PCR Positive Narrative: The negative predictive value of this diagnostic test is high and should only be used to consider de-escalating anti-MRSA therapy. A positive result may indicate colonization with MRSA and must be correlated clinically. Gastrointestinal Panel, PCR - Stool, Per Rectum [[id number]] (Abnormal) Collected: 06/26/2545 Lab Status: Final result [...] Clostridioides difficile Toxin - Stool, Per Rectum [[id number]] (Abnormal) Collected: 06/26/2545 Lab Status: Final result Specimen: Stool from Per Rectum Updated: 06/26/25754 Narrative: The following orders were created for panel order Clostridioides difficile Toxin - Stool, Per Rectum. Procedure Abnormality Status --------- ------ Clostridioides difficile...[[id number]] Abnormal Final result Please view results for these tests on the individual orders. Clostridioides difficile Toxin, PCR - Stool, Per Rectum [[id number]] (Abnormal) Collected: 06/26/2545 Lab Status: Final result Specimen: Stool from Per Rectum Updated: 06/26/25754 Toxigenic C. difficile by PCR Detected Narrative: DNA from a toxigenic strain of C.difficile has been detected. Microbiology Results Abnormal Procedure Component Value - Date/Time Urine Culture - Urine, Indwelling Urethral Catheter [[id number]] (Abnormal) (Susceptibility) Collected: 06/25/252000 Lab Status: Final [...] Resistant Blood Culture - Blood, Hand, Right [[id number]] (Abnormal) (Susceptibility) Collected: 06/25/252029 Lab Status: Edited [...] report. Wound Culture - Swab, Foot, Left [[id number]] (Abnormal) (Susceptibility) Collected: 06/25/25 1818 Lab Status: [...] Culture ID, PCR - Blood, Hand, Right [[id number]] (Abnormal) Collected: 06/25/252029 Lab Status: Final result Specimen: Blood from Hand, Right Updated: 06/26/252101 BCID, PCR Enterococcus faecium. Zee/B (vancomycin resistance gene) not detected. Identification by BCID2 PCR. BOTTLE TYPE Anaerobic Bottle Narrative: Infectious disease consultation is highly recommended to rule out distant foci of infection. MRSA Screen, PCR (Inpatient) - Swab, Nares [[id number]] (Abnormal) Collected: 06/26/2545 Lab Status: Final result Specimen: Swab from Nares Updated: 06/26/25 0850 MRSA PCR Positive Narrative: The negative predictive value of this diagnostic test is high and should only be used to consider de-escalating anti-MRSA therapy. A positive result may indicate colonization with MRSA and must be correlated clinically. Gastrointestinal Panel, PCR - Stool, Per Rectum [[id number]] (Abnormal) Collected: 06/26/2545 Lab Status: Final result [...] Clostridioides difficile Toxin - Stool, Per Rectum [[id number]] (Abnormal) Collected: 06/26/2545 Lab Status: Final result Specimen: Stool from Per Rectum Updated: 06/26/25754 Narrative: The following orders were created for panel order Clostridioides difficile Toxin - Stool, Per Rectum. Procedure Abnormality Status --------- ------ Clostridioides difficile...[[id number]] Abnormal Final result Please view results for these tests on the individual orders. Clostridioides difficile Toxin, PCR - Stool, Per Rectum [[id number]] (Abnormal) Collected: 06/26/2545 Lab Status: Final result Specimen: Stool from Per Rectum Updated: 06/26/25754 Toxigenic C. difficile by PCR Detected Narrative: DNA from a toxigenic strain of C.difficile has been detected. Microbiology Results Abnormal Procedure Component Value - Date/Time Urine Culture - Urine, Indwelling Urethral Catheter [[id number]] (Abnormal) (Susceptibility) Collected: 06/25/252000 Lab Status: Final [...] Resistant Blood Culture - Blood, Hand, Right [[id number]] (Abnormal) (Susceptibility) Collected: 06/25/25 2030 Lab Status: [...] report. Wound Culture - Swab, Foot, Left [[id number]] (Abnormal) (Susceptibility) Collected: 06/25/25 1818 Lab Status: [...] Culture ID, PCR - Blood, Hand, Right [[id number]] (Abnormal) Collected: 06/25/252029 Lab Status: Final result Specimen: Blood from Hand, Right Updated: 06/26/252101 BCID, PCR Enterococcus faecium. Zee/B (vancomycin resistance gene) not detected. Identification by BCID2 PCR. BOTTLE TYPE Anaerobic Bottle Narrative: Infectious disease consultation is highly recommended to rule out distant foci of infection. MRSA Screen, PCR (Inpatient) - Swab, Nares [[id number]] (Abnormal) Collected: 06/26/2545 Lab Status: Final result Specimen: Swab from Nares Updated: 06/26/25 0850 MRSA PCR Positive Narrative: The negative predictive value of this diagnostic test is high and should only be used to consider de-escalating anti-MRSA therapy. A positive result may indicate colonization with MRSA and must be correlated clinically. Gastrointestinal Panel, PCR - Stool, Per Rectum [[id number]] (Abnormal) Collected: 06/26/2545 Lab Status: Final result [...] Clostridioides difficile Toxin - Stool, Per Rectum [[id number]] (Abnormal) Collected: 06/26/2545 Lab Status: Final result Specimen: Stool from Per Rectum Updated: 06/26/255 Narrative: The following orders were created for panel order Clostridioides difficile Toxin - Stool, Per Rectum. Procedure Abnormality Status --------- ------ Clostridioides difficile...[[id number]] Abnormal Final result Please view results for these tests on the individual orders. Clostridioides difficile Toxin, PCR - Stool, Per Rectum [[id number]] (Abnormal) Collected: 06/26/25 0046 Lab Status: Final result Specimen: Stool from Per Rectum Updated: 06/26/25 0755 Toxigenic C. difficile by PCR Detected Narrative: DNA from a toxigenic strain of C.difficile has been detected. Microbiology Results Abnormal Procedure Component Value - Date/Time Urine Culture - Urine, Indwelling Urethral Catheter [[id number]] (Abnormal) (Susceptibility) Collected: 06/25/252000 Lab Status: Final [...] Resistant Blood Culture - Blood, Hand, Right [[id number]] (Abnormal) (Susceptibility) Collected: 06/25/252029 Lab Status: Edited [...] report. Wound Culture - Swab, Foot, Left [[id number]] (Abnormal) (Susceptibility) Collected: 06/25/25 1818 Lab Status: [...] Culture ID, PCR - Blood, Hand, Right [[id number]] (Abnormal) Collected: 06/25/25 2030 Lab Status: Final result Specimen: Blood from Hand, Right Updated: 06/26/252101 BCID, PCR Enterococcus faecium. Zee/B (vancomycin resistance gene) not detected. Identification by BCID2 PCR. BOTTLE TYPE Anaerobic Bottle Narrative: Infectious disease consultation is highly recommended to rule out distant foci of infection. MRSA Screen, PCR (Inpatient) - Swab, Nares [[id number]] (Abnormal) Collected: 06/26/25 0046 Lab Status: Final result Specimen: Swab from Nares Updated: 06/26/25 0850 MRSA PCR Positive Narrative: The negative predictive value of this diagnostic test is high and should only be used to consider de-escalating anti-MRSA therapy. A positive result may indicate colonization with MRSA and must be correlated clinically. Gastrointestinal Panel, PCR - Stool, Per Rectum [[id number]] (Abnormal) Collected: 06/26/2545 Lab Status: Final result Specimen: Stool from Per Rectum Updated: 06/26/25 0889 Campylobacter Not Detected Plesiomonas shigelloides Not Detected [...] Clostridioides difficile Toxin - Stool, Per Rectum [[id number]] (Abnormal) Collected: 06/26/2545 Lab Status: Final result Specimen: Stool from Per Rectum Updated: 06/26/25754 Narrative: The following orders were created for panel order Clostridioides difficile Toxin - Stool, Per Rectum. Procedure Abnormality Status --------- ------ Clostridioides difficile...[[id number]] Abnormal Final result Please view results for these tests on the individual orders. Clostridioides difficile Toxin, PCR - Stool, Per Rectum [[id number]] (Abnormal) Collected: 06/26/2545 Lab Status: Final result [...] [I73.9] Yes ??? 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 [...] does not want to go to a fci, states that if we can avoid sending him to fci he may be agreeable to amputation. He is agreeable for short course of rehab/SNF after amputation however he states he does not want to but if ultimately he will end up in fci then he just wants to go home [...] finasteride. 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 Norovirus GI PCR panel with [...] AM-PAC 6 Clicks Score (PT): 10 (07/11/25 9784) CODE STATUS: Code Status and Medical Interventions: CPR (Attempt to Resuscitate); Full Support Ordered at: 06/25/25 5119 Code Status (Patient has no pulse and is not breathing): CPR (Attempt to Resuscitate) Medical Interventions (Patient has pulse or is breathing): Full Support Level Of Support Discussed With: Patient Chinyere Ascencio IZABELLA Hensley 07/12/25 * Duglas Andres MD - 07/12/2025 7:42 AM EDT Trung Martinez [facility] 1955 [id number] Date of Consult: 07/12/2025 Evaluating Physician: Duglas [...] excoriation/crusted areas at the toes, hospitalized at [facility] June 04 untilSept2022 and discharged with oral antibiotics for left lower extremity cellulitis; he alsohas nonhealing wounds at his buttocks 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 Admitted to [facility] June 13 2023 diagnosis of sepsis per admission notes, left lower extremity cellulitis with pressure injury at buttocks. 06/15/24 Dr Colón saw and recommended amputation; patient refused ; see his note for detail 06/17/23 Dr buenrostro discussed potential options for heel debridement with patient; MRI no osteomyelitis per radiology; taken to OR PROCEDURE: Left 78158: Debridement of skin and subcutaneous tissue 44547: wound vacuum-assisted closure, wound measuring 2.5 cm [...] 07/25/[address] Buenrostro PROCEDURE: Left 68708: Debridement of skin and subcutaneous tissue 99779: Wound vacuum-assisted closure culture data with MRSA/aneta. [...] possible intervention 01/28/24 Dr. 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 Faust in [place] and has seen Dr Oneal (ID in [place]); he is not a good historian with respect to detail. Reports having had some further surgery to the left foot although he is unable to clarify specific date/procedure. Culture at [facility] August 07, 2024 from left foot wound with ESBL Klebsiella pneumoniae and pseudomonas aeruginosa (microbiology lab there reports the Pseudomonas is sensitive to Merrem). He reports his outpatient practitioners had recommended admission to the hospital for IV antibiotics but patient had refused at that time. He also reports that he was in the emergency room at [facility] mid August, no cultures done at that time. Patient reports practitioners at [facility] had recommended higher level amputation but patient has continued to refuse that. He was readmitted to [facility] on August 31, 2024 with worsening odor/drainage andredness/pain to the left lower extremity in recent days/weeks. He reports having been taking outpatient Levaquin; prior history MRSA/PSA and ESBL organisms 09/04/24 Dr Marcano. Procedure/CPT?? Codes: RIGHT AFTER SCHOOL TEACHER access - ultrasound guided Aortogram with LEFT lower extremity run-off LEFT PT angioplasty (2e795ca Nanocross) LEFT plantar angioplasty (3g312st Nanocross, 2.0s276rp UltraverseRx) LEFT AT angioplasty (3r519hv Nanocross, 2.1u309pg UltraverseRx) LEFT DP angioplasty (1h961nn Nanocross, 2.3g909da UltraverseRx) RIGHT AFTER SCHOOL TEACHER closure (Angioseal) 09/07/24 Dr Marcano Procedure/CPT?? Codes: RIGHT AFTER SCHOOL TEACHER access - ultrasound guided Aortogram with LEFT lower extremity run-off LEFT Pr AVF embolization RIGHT AFTER SCHOOL TEACHER closure 09/09/24 moved to ICU overnight with [...] femoral artery and left popliteal artery 6 [place] Angio-Seal closure of right common femoral arteriotomy [...] LEFT; Surgeon: Cecil Buenrostro Jr., MD; Location: [facility]; Service: Orthopedics; Laterality: Left; ANTERIOR CERVICAL DISCECTOMY W/ FUSION Bilateral 07/17/2020 Procedure: Cervical discectomy anterior with fusion C3-4; Surgeon: Tyree Tan MD; Location: [facility]; Service: Neurosurgery; Laterality: Bilateral; AORTOGRAM N/A 01/26/2024 Procedure: ABDOMINAL AORTIC ANGIOGRAM, LLE ANGIOGRAM, LEFT ANTERIOR TIBIAL ATHERECTOMY, LEFT ANTERIOR TIBIAL ANGIOPLASTY; Surgeon: Archie Olvera MD; Location: [facility]; Service: Vascular; Laterality: N/A; CONTRAST: 50 ML, FT: 2 MIN 54 SEC, DOSE: 66 MGY. AORTOGRAM Left 07/03/2025 Procedure: ARTERIOGRAM LOWER EXTREMITY; Surgeon: Vaughn Hollingsworth DO; Location: [facility]; Service: Vascular; Laterality: Left; FT-6MINS 24SEC 140 MGY CONTRAST -15ML BACK SURGERY FOR DISC HERNIATION CARDIAC CATHETERIZATION CARDIAC CATHETERIZATION N/A 09/04/2024 Procedure: Peripheral angiography - Left lower extremity angio - Right femoral access; Surgeon: Jared Marcano MD; Location: [facility]IVE LOCATION; Service: Peripheral Vascular; Laterality: N/A; CORONARY ANGIOPLASTY WITH STENT PLACEMENT stent x 1 INCISION AND DRAINAGE FOOT Left 06/17/2023 Procedure: LEFT FOOT DEBRIDEMENT WOUND VACUUM ASSISTED CLOSURE; Surgeon: Cecil Buenrostro Jr., MD;Location: [facility]; Service: Orthopedics; Laterality: Left; INCISION AND DRAINAGE LEG Left 07/25/2023 Procedure: INCISION AND DRAINAGE HEEL, WOUND VAC; Surgeon: Cecil Buenrostro Jr., MD; Location: [facility]; Service: Orthopedics; Laterality: Left; INCISION AND DRAINAGE LEG Left 07/03/2025 Procedure: DEBRIDEMENT WOUND, PLACEMENT OF WOUND VAC; Surgeon: Vaughn Hollingsworth DO; [facility]; Service: Vascular; Laterality: Left; INTERVENTIONAL RADIOLOGY PROCEDURE N/A 05/02/2019 Procedure: IVC FILTER PLACEMENT; Surgeon: Pedro Zapien MD; Location: [facility] INVASIVE LOCATION; Service: Interventional Radiology INTERVENTIONAL RADIOLOGY PROCEDURE Left 09/07/2024 Procedure: LEFT peroneal arteriovenous fistula embolization - Right femoral access; Surgeon: Jared Marcano MD; Location: [facility]IVE LOCATION; Service: Cardiovascular; Laterality: Left; Please coordinate with Gautam Patel ([facility]) [phone] who will bring coils LUMBAR DISCECTOMY N/A 05/03/2019 Procedure: THORACIC LAMINECTOMY T11-12; Surgeon: Tyree Tan MD; Location: [facility]; Service: Neurosurgery Pediatric History Patient Parents Not on file Other Topics Concern Not on file Social History Narrative Not on file family history includes Alcohol abuse in his father. Allergies[1] Medication: Current Medications[2] Antibiotics: Anti-Infectives (From admission, onward) Ordered Dose/Rate Route Frequency Start Stop 06/26/25 0831 vancomycin (VANCOCIN) capsule 125 mg Ordering Provider: Vaughn Hlolingsworth DO Placed in Followed by Linked Group [...] sensitive to Merrem per microbiology lab at [facility]. 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 He has riskfor active disease and does have symptomatology and [...] 400-400-40 MG/5ML suspension 15 mL 15 mL [id number] PRN Amanda Bermudez MD [Held by provider] [...] 10 mL Intravenous PRN Ally Jeffers V, CONSTRUCTION COST ESTIMATOR sodium chloride 0.9 % flush 10 mL 10 mL Intravenous Q12H Amanda Bermudez MD 10 mL at 07/01/25 0832 sodium chloride 0.9 % flush 10 mL 10 mL Intravenous PRN Amanda Bermudez MD sodium chloride 0.9 % flush 10 mL 10 mL Intravenous Q12H Duglas Andres MD 10 mL at 07/01/25 2145 sodium chloride 0.9 % flush 10 mL 10 mL Intravenous PRN uDglas Andres MD sodium chloride 0.9 % flush 20 mL 20 mL Intravenous PRN Duglas Andres MD sodium chloride 0.9 % infusion 40 mL 40 mL Intravenous PRN Duglas Andres MD vancomycin (VANCOCIN) 1,000 mg in sodium chloride 0.9 % 250 mL IVPB-VTB 1,000 mg Intravenous Q12H Osmany Mccann [facility] 250 mL/hr at 07/01/25 2143 1,000 mg at 07/01/25 214 vancomycin (VANCOCIN) [...] Weekly Duglas Andres MD * Osmany Mccann [facility] - 07/11/2025 11:01 AM EDT Pharmacy Consult [...] and adjust dose accordingly Thanks Osmany Mccann [facility] 07/11/2025 11:01 EDT * Chinyere Hensley APRN - 07/11/2025 8:14 AM EDT Images from the original note were not included. [facility] Medicine Services PROGRESS NOTE Patient Name: Trung Pool : [id number] Date of Admission: 06/25/2025 Primary Care Physician: Gustavo Mehta MD Subjective Subjective CC: LLE wound HPI: No changes overnight. Wants to take a day or so to think about options for discharge. Leaning towards home with HH and continuing antibiotics. Doesn't want to be in a fci. Objective Objective Vital Signs: Temp: [97.6 ??F [...] Urine Culture - Urine, Indwelling Urethral Catheter [[id number]] (Abnormal) (Susceptibility) Collected: 06/25/252000 Lab Status: Final [...] Resistant Blood Culture - Blood, Hand, Right [[id number]] (Abnormal) (Susceptibility) Collected: 06/25/252029 Lab Status: Edited [...] report. Wound Culture - Swab, Foot, Left [[id number]] (Abnormal) (Susceptibility) Collected: 06/25/25 1818 Lab Status: [...] Culture ID, PCR - Blood, Hand, Right [[id number]] (Abnormal) Collected: 06/25/252029 Lab Status: Final result Specimen: Blood from Hand, Right Updated: 06/26/252101 BCID, PCR Enterococcus faecium. Zee/B (vancomycin resistance gene) not detected. Identification by BCID2 PCR. BOTTLE TYPE Anaerobic Bottle Narrative: Infectious disease consultation is highly recommended to rule out distant foci of infection. MRSA Screen, PCR (Inpatient) - Swab, Nares [[id number]] (Abnormal) Collected: 06/26/2545 Lab Status: Final result Specimen: Swab from Nares Updated: 06/26/25 0850 MRSA PCR Positive Narrative: The negative predictive value of this diagnostic test is high and should only be used to consider de-escalating anti-MRSA therapy. A positive result may indicate colonization with MRSA and must be correlated clinically. Gastrointestinal Panel, PCR - Stool, Per Rectum [[id number]] (Abnormal) Collected: 06/26/2545 Lab Status: Final result [...] Clostridioides difficile Toxin - Stool, Per Rectum [[id number]] (Abnormal) Collected: 06/26/2545 Lab Status: Final result Specimen: Stool from Per Rectum Updated: 06/26/25754 Narrative: The following orders were created for panel order Clostridioides difficile Toxin - Stool, Per Rectum. Procedure Abnormality Status --------- ------ Clostridioides difficile...[[id number]] Abnormal Final result Please view results for these tests on the individual orders. Clostridioides difficile Toxin, PCR - Stool, Per Rectum [[id number]] (Abnormal) Collected: 06/26/2545 Lab Status: Final result Specimen: Stool from Per Rectum Updated: 06/26/25754 Toxigenic C. difficile by PCR Detected Narrative: DNA from a toxigenic strain of C.difficile has been detected. Microbiology Results Abnormal Procedure Component Value - Date/Time Urine Culture - Urine, Indwelling Urethral Catheter [[id number]] (Abnormal) (Susceptibility) Collected: 06/25/252000 Lab Status: Final [...] Resistant Blood Culture - Blood, Hand, Right [[id number]] (Abnormal) (Susceptibility) Collected: 06/25/252029 Lab Status: Edited [...] report. Wound Culture - Swab, Foot, Left [[id number]] (Abnormal) (Susceptibility) Collected: 06/25/251817 Lab Status: Final [...] Culture ID, PCR - Blood, Hand, Right [[id number]] (Abnormal) Collected: 06/25/252029 Lab Status: Final result Specimen: Blood from Hand, Right Updated: 06/26/252101 BCID, PCR Enterococcus faecium. Zee/B (vancomycin resistance gene) not detected. Identification by BCID2 PCR. BOTTLE TYPE Anaerobic Bottle Narrative: Infectious disease consultation is highly recommended to rule out distant foci of infection. MRSA Screen, PCR (Inpatient) - Swab, Nares [[id number]] (Abnormal) Collected: 06/26/2545 Lab Status: Final result Specimen: Swab from Nares Updated: 06/26/25 0850 MRSA PCR Positive Narrative: The negative predictive value of this diagnostic test is high and should only be used to consider de-escalating anti-MRSA therapy. A positive result may indicate colonization with MRSA and must be correlated clinically. Gastrointestinal Panel, PCR - Stool, Per Rectum [[id number]] (Abnormal) Collected: 06/26/2545 Lab Status: Final result [...] Clostridioides difficile Toxin - Stool, Per Rectum [[id number]] (Abnormal) Collected: 06/26/2545 Lab Status: Final result Specimen: Stool from Per Rectum Updated: 06/26/25 7867 Narrative: The following orders were created for panel order Clostridioides difficile Toxin - Stool, Per Rectum. Procedure Abnormality Status --------- ------ Clostridioides difficile...[[id number]] Abnormal Final result Please view results for these tests on the individual orders. Clostridioides difficile Toxin, PCR - Stool, Per Rectum [[id number]] (Abnormal) Collected: 06/26/25 0046 Lab Status: Final result Specimen: Stool from Per Rectum Updated: 06/26/25 0755 Toxigenic C. difficile by PCR Detected Narrative: DNA from a toxigenic strain of C.difficile has been detected. Microbiology Results Abnormal Procedure Component Value - Date/Time Urine Culture - Urine, Indwelling Urethral Catheter [[id number]] (Abnormal) (Susceptibility) Collected: 06/25/252000 Lab Status: Final [...] Resistant Blood Culture - Blood, Hand, Right [[id number]] (Abnormal) (Susceptibility) Collected: 06/25/252029 Lab Status: Edited [...] report. Wound Culture - Swab, Foot, Left [[id number]] (Abnormal) (Susceptibility) Collected: 06/25/25 1818 Lab Status: [...] Culture ID, PCR - Blood, Hand, Right [[id number]] (Abnormal) Collected: 06/25/252029 Lab Status: Final result Specimen: Blood from Hand, Right Updated: 06/26/252101 BCID, PCR Enterococcus faecium. Zee/B (vancomycin resistance gene) not detected. Identification by BCID2 PCR. BOTTLE TYPE Anaerobic Bottle Narrative: Infectious disease consultation is highly recommended to rule out distant foci of infection. MRSA Screen, PCR (Inpatient) - Swab, Nares [[id number]] (Abnormal) Collected: 06/26/2545 Lab Status: Final result Specimen: Swab from Nares Updated: 06/26/25 0850 MRSA PCR Positive Narrative: The negative predictive value of this diagnostic test is high and should only be used to consider de-escalating anti-MRSA therapy. A positive result may indicate colonization with MRSA and must be correlated clinically. Gastrointestinal Panel, PCR - Stool, Per Rectum [[id number]] (Abnormal) Collected: 06/26/2545 Lab Status: Final result [...] Clostridioides difficile Toxin - Stool, Per Rectum [[id number]] (Abnormal) Collected: 06/26/2545 Lab Status: Final result Specimen: Stool from Per Rectum Updated: 06/26/25754 Narrative: The following orders were created for panel order Clostridioides difficile Toxin - Stool, Per Rectum. Procedure Abnormality Status --------- ------ Clostridioides difficile...[[id number]] Abnormal Final result Please view results for these tests on the individual orders. Clostridioides difficile Toxin, PCR - Stool, Per Rectum [[id number]] (Abnormal) Collected: 06/26/2545 Lab Status: Final result Specimen: Stool from Per Rectum Updated: 06/26/25754 Toxigenic C. difficile by PCR Detected Narrative: DNA from a toxigenic strain of C.difficile has been detected. Microbiology Results Abnormal Procedure Component Value - Date/Time Urine Culture - Urine, Indwelling Urethral Catheter [[id number]] (Abnormal) (Susceptibility) Collected: 06/25/252000 Lab Status: Final [...] Resistant Blood Culture - Blood, Hand, Right [[id number]] (Abnormal) (Susceptibility) Collected: 06/25/25 2030 Lab Status: [...] report. Wound Culture - Swab, Foot, Left [[id number]] (Abnormal) (Susceptibility) Collected: 06/25/25 1818 Lab Status: [...] Culture ID, PCR - Blood, Hand, Right [[id number]] (Abnormal) Collected: 06/25/252029 Lab Status: Final result Specimen: Blood from Hand, Right Updated: 06/26/252101 BCID, PCR Enterococcus faecium. Zee/B (vancomycin resistance gene) not detected. Identification by BCID2 PCR. BOTTLE TYPE Anaerobic Bottle Narrative: Infectious disease consultation is highly recommended to rule out distant foci of infection. MRSA Screen, PCR (Inpatient) - Swab, Nares [[id number]] (Abnormal) Collected: 06/26/2545 Lab Status: Final result Specimen: Swab from Nares Updated: 06/26/25849 MRSA PCR Positive Narrative: The negative predictive value of this diagnostic test is high and should only be used to consider de-escalating anti-MRSA therapy. A positive result may indicate colonization with MRSA and must be correlated clinically. Gastrointestinal Panel, PCR - Stool, Per Rectum [[id number]] (Abnormal) Collected: 06/26/2545 Lab Status: Final result [...] Clostridioides difficile Toxin - Stool, Per Rectum [[id number]] (Abnormal) Collected: 06/26/2545 Lab Status: Final result Specimen: Stool from Per Rectum Updated: 06/26/25754 Narrative: The following orders were created for panel order Clostridioides difficile Toxin - Stool, Per Rectum. Procedure Abnormality Status --------- ------ Clostridioides difficile...[[id number]] Abnormal Final result Please view results for these tests on the individual orders. Clostridioides difficile Toxin, PCR - Stool, Per Rectum [[id number]] (Abnormal) Collected: 06/26/2545 Lab Status: Final result [...] [I73.9] Yes ??? 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 [...] does not want to go to a fci, states that if we can avoid sending him to fci he may be agreeable to amputation. He is agreeable for short course of rehab/SNF after amputation however he states he does not want to but if ultimately he will end up in fci then he just wants to go home [...] finasteride. 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 Admitted to [facility] June 13 2023 diagnosis of sepsis per admission notes, left lower extremity cellulitis with pressure injury at buttocks. 06/15/24 Dr Colón saw and recommended amputation; patient refused ; see his note for detail 06/17/23 Dr buenrostro discussed potential options for heel debridement with patient; MRI no osteomyelitis per radiology; taken to OR PROCEDURE: Left 59712: Debridement of skin and subcutaneous tissue 07526: wound vacuum-assisted closure, wound measuring 2.5 cm [...] 07/25/[address] Buenrostro PROCEDURE: Left 85188: Debridement of skin and subcutaneous tissue 17317: Wound vacuum-assisted closure culture data with MRSA/aneta. [...] possible intervention 01/28/24 Dr. 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 Faust in [place] and has seen Dr Oneal (ID in [place]); he is not a good historian with respect to detail. Reports having had some further surgery to the left foot although he is unable to clarify specific date/procedure. Culture at [facility] August 07, 2024 from left foot wound with ESBL Klebsiella pneumoniae and pseudomonas aeruginosa (microbiology lab there reports the Pseudomonas is sensitive to Merrem). He reports his outpatient practitioners had recommended admission to the hospital for IV antibiotics but patient had refused at that time. He also reports that he was in the emergency room at [facility] mid August, no cultures done at that time. Patient reports practitioners at [facility] had recommended higher level amputation but patient has continued to refuse that. He was readmitted to [facility] on August 31, 2024 with worsening odor/drainage andredness/pain to the left lower extremity in recent days/weeks. He reports having been taking outpatient Levaquin; prior history MRSA/PSA and ESBL organisms 09/04/24 Dr Marcano. Procedure/CPT?? 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 Codes: RIGHT AFTER SCHOOL TEACHER access - ultrasound guided Aortogram with LEFT lower extremity run-off LEFT Pr AVF embolization RIGHT AFTER SCHOOL TEACHER closure 09/09/24 moved to ICU overnight with [...] femoral artery and left popliteal artery 6 [place] Angio-Seal closure of right common femoral arteriotomy [...] LEFT; Surgeon: Cecil Buenrostro Jr., MD; Location: [facility]; Service: Orthopedics; Laterality: Left; ANTERIOR CERVICAL DISCECTOMY W/ FUSION Bilateral 07/17/2020 Procedure: Cervical discectomy anterior with fusion C3-4; Surgeon: Tyree Tan MD; Location: [facility]; Service: Neurosurgery; Laterality: Bilateral; AORTOGRAM N/A 01/26/2024 Procedure: ABDOMINAL AORTIC ANGIOGRAM, LLE ANGIOGRAM, LEFT ANTERIOR TIBIAL ATHERECTOMY, LEFT ANTERIOR TIBIAL ANGIOPLASTY; Surgeon: Archie Olvera MD; Location: [facility]; Service: Vascular; Laterality: N/A; CONTRAST: 50 ML, FT: 2 MIN 54 SEC, DOSE: 66 MGY. AORTOGRAM Left 07/03/2025 Procedure: ARTERIOGRAM LOWER EXTREMITY; Surgeon: Vaughn Hollingsworth DO; Location: [facility]; Service: Vascular; Laterality: Left; FT-6MINS [...] ASSISTED CLOSURE; Surgeon: Cecil Buenrostro Jr., MD;Location: [facility]; Service: Orthopedics; Laterality: Left; INCISION AND [...] Laterality: Left; Please coordinate with Gautam Patel ([facility]) [phone] who will bring coils LUMBAR DISCECTOMY N/A [...] sensitive to Merrem per microbiology lab at [facility]. 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 ; readmission May 2025 and [...] 400-400-40 MG/5ML suspension 15 mL 15 mL [id number] PRN Amanda Bermudez MD [Held by provider] [...] 5,000 Units Subcutaneous Q8H Albert, Lupe E, CONSTRUCTION COST ESTIMATOR 5,000 Units at 07/02/25 0649 influenza vac [...] 10 mL Intravenous PRN Ally Jeffers V, CONSTRUCTION COST ESTIMATOR sodium chloride 0.9 % flush 10 mL [...] IVPB-VTB 1,000 mg Intravenous Q12H Osmany Mccann, [facility] 250 mL/hr at 07/01/252142 1,000 mg at [...] Weekly Duglas Andres MD * Chinyere Hensley, CONSTRUCTION COST ESTIMATOR - 07/10/2025 4:15 PM EDT Images from the original note were not included. [facility] Medicine Services PROGRESS NOTE Patient Name: Trung [...] Urine Culture - Urine, Indwelling Urethral Catheter [[id number]] (Abnormal) (Susceptibility) Collected: 06/25/252000 Lab Status: Final [...] Resistant Blood Culture - Blood, Hand, Right [[id number]] (Abnormal) (Susceptibility) Collected: 06/25/252029 Lab Status: Edited [...] report. Wound Culture - Swab, Foot, Left [[id number]] (Abnormal) (Susceptibility) Collected: 06/25/25 1818 Lab Status: [...] Culture ID, PCR - Blood, Hand, Right [[id number]] (Abnormal) Collected: 06/25/252029 Lab Status: Final result Specimen: Blood from Hand, Right Updated: 06/26/252101 BCID, PCR Enterococcus faecium. Zee/B (vancomycin resistance gene) not detected. Identification byBCID2 PCR. BOTTLE TYPE Anaerobic Bottle Narrative: Infectious disease consultation is highly recommended to rule out distant foci of infection. MRSA Screen, PCR (Inpatient) - Swab, Nares [[id number]] (Abnormal) Collected: 06/26/2545 Lab Status: Final result Specimen: Swab from Nares Updated: 06/26/25 0850 MRSA PCR Positive Narrative: The negative predictive value of this diagnostic test is high and should only be used to consider de-escalating anti-MRSA therapy. A positive result may indicate colonization with MRSA and must be correlated clinically. Gastrointestinal Panel, PCR - Stool, Per Rectum [[id number]] (Abnormal) Collected: 06/26/2545 Lab Status: Final result [...] Clostridioides difficile Toxin - Stool, Per Rectum [[id number]] (Abnormal) Collected: 06/26/2545 Lab Status: Final result Specimen: Stool from Per Rectum Updated: 06/26/25754 Narrative: The following orders were created for panel order Clostridioides difficile Toxin - Stool, Per Rectum. Procedure Abnormality Status --------- ------ Clostridioides difficile...[[id number]] Abnormal Final result Please view results for these tests on the individual orders. Clostridioides difficile Toxin, PCR - Stool, Per Rectum [[id number]] (Abnormal) Collected: 06/26/2545 Lab Status: Final result Specimen: Stool from Per Rectum Updated: 06/26/25754 Toxigenic C. difficile by PCR Detected Narrative: DNA from a toxigenic strain of C.difficile has been detected. Microbiology Results Abnormal Procedure Component Value - Date/Time Urine Culture - Urine, Indwelling Urethral Catheter [[id number]] (Abnormal) (Susceptibility) Collected: 06/25/252000 Lab Status: Final [...] Resistant Blood Culture - Blood, Hand, Right [[id number]] (Abnormal) (Susceptibility) Collected: 06/25/252029 Lab Status: Edited [...] report. Wound Culture - Swab, Foot, Left [[id number]] (Abnormal) (Susceptibility) Collected: 06/25/251817 Lab Status: Final [...] Culture ID, PCR - Blood, Hand, Right [[id number]] (Abnormal) Collected: 06/25/252029 Lab Status: Final result Specimen: Blood from Hand, Right Updated: 06/26/252101 BCID, PCR Enterococcus faecium. Zee/B (vancomycin resistance gene) not detected. Identification byBCID2 PCR. BOTTLE TYPE Anaerobic Bottle Narrative: Infectious disease consultation is highly recommended to rule out distant foci of infection. MRSA Screen, PCR (Inpatient) - Swab, Nares [[id number]] (Abnormal) Collected: 06/26/2545 Lab Status: Final result Specimen: Swab from Nares Updated: 06/26/25 0850 MRSA PCR Positive Narrative: The negative predictive value of this diagnostic test is high and should only be used to consider de-escalating anti-MRSA therapy. A positive result may indicate colonization with MRSA and must be correlated clinically. Gastrointestinal Panel, PCR - Stool, Per Rectum [[id number]] (Abnormal) Collected: 06/26/2545 Lab Status: Final result [...] Clostridioides difficile Toxin - Stool, Per Rectum [[id number]] (Abnormal) Collected: 06/26/2545 Lab Status: Final result Specimen: Stool from Per Rectum Updated: 06/26/25 5495 Narrative: The following orders were created for panel order Clostridioides difficile Toxin - Stool, Per Rectum. Procedure Abnormality Status --------- ------ Clostridioides difficile...[[id number]] Abnormal Final result Please view results for these tests on the individual orders. Clostridioides difficile Toxin, PCR - Stool, Per Rectum [[id number]] (Abnormal) Collected: 06/26/25 0046 Lab Status: Final result Specimen: Stool from Per Rectum Updated: 06/26/25 0755 Toxigenic C. difficile by PCR Detected Narrative: DNA from a toxigenic strain of C.difficile has been detected. Microbiology Results Abnormal Procedure Component Value - Date/Time Urine Culture - Urine, Indwelling Urethral Catheter [[id number]] (Abnormal) (Susceptibility) Collected: 06/25/252000 Lab Status: Final [...] Resistant Blood Culture - Blood, Hand, Right [[id number]] (Abnormal) (Susceptibility) Collected: 06/25/252029 Lab Status: Edited [...] report. Wound Culture - Swab, Foot, Left [[id number]] (Abnormal) (Susceptibility) Collected: 06/25/25 1818 Lab Status: [...] Culture ID, PCR - Blood, Hand, Right [[id number]] (Abnormal) Collected: 06/25/252029 Lab Status: Final result Specimen: Blood from Hand, Right Updated: 06/26/252101 BCID, PCR Enterococcus faecium. Zee/B (vancomycin resistance gene) not detected. Identification byBCID2 PCR. BOTTLE TYPE Anaerobic Bottle Narrative: Infectious disease consultation is highly recommended to rule out distant foci of infection. MRSA Screen, PCR (Inpatient) - Swab, Nares [[id number]] (Abnormal) Collected: 06/26/2545 Lab Status: Final result Specimen: Swab from Nares Updated: 06/26/25 0850 MRSA PCR Positive Narrative: The negative predictive value of this diagnostic test is high and should only be used to consider de-escalating anti-MRSA therapy. A positive result may indicate colonization with MRSA and must be correlated clinically. Gastrointestinal Panel, PCR - Stool, Per Rectum [[id number]] (Abnormal) Collected: 06/26/2545 Lab Status: Final result [...] Clostridioides difficile Toxin - Stool, Per Rectum [[id number]] (Abnormal) Collected: 06/26/2545 Lab Status: Final result Specimen: Stool from Per Rectum Updated: 06/26/25754 Narrative: The following orders were created for panel order Clostridioides difficile Toxin - Stool, Per Rectum. Procedure Abnormality Status --------- ------ Clostridioides difficile...[[id number]] Abnormal Final result Please view results for these tests on the individual orders. Clostridioides difficile Toxin, PCR - Stool, Per Rectum [[id number]] (Abnormal) Collected: 06/26/2545 Lab Status: Final result Specimen: Stool from Per Rectum Updated: 06/26/25 075 Toxigenic C. difficile by PCR Detected Narrative: DNA from a toxigenic strain of C.difficile has been detected. Microbiology Results Abnormal Procedure Component Value - Date/Time Urine Culture - Urine, Indwelling Urethral Catheter [[id number]] (Abnormal) (Susceptibility) Collected: 06/25/252000 Lab Status: Final [...] Resistant Blood Culture - Blood, Hand, Right [[id number]] (Abnormal) (Susceptibility) Collected: 06/25/25 2030 Lab Status: [...] report. Wound Culture - Swab, Foot, Left [[id number]] (Abnormal) (Susceptibility) Collected: 06/25/25 1818 Lab Status: [...] Culture ID, PCR - Blood, Hand, Right [[id number]] (Abnormal) Collected: 06/25/252029 Lab Status: Final result Specimen: Blood from Hand, Right Updated: 06/26/252101 BCID, PCR Enterococcus faecium. Zee/B (vancomycin resistance gene) not detected. Identification byBCID2 PCR. BOTTLE TYPE Anaerobic Bottle Narrative: Infectious disease consultation is highly recommended to rule out distant foci of infection. MRSA Screen, PCR (Inpatient) - Swab, Nares [[id number]] (Abnormal) Collected: 06/26/2545 Lab Status: Final result Specimen: Swab from Nares Updated: 06/26/2550 MRSA PCR Positive Narrative: The negative predictive value of this diagnostic test is high and should only be used to consider de-escalating anti-MRSA therapy. A positive result may indicate colonization with MRSA and must be correlated clinically. Gastrointestinal Panel, PCR - Stool, Per Rectum [[id number]] (Abnormal) Collected: 06/26/2545 Lab Status: Final result [...] Clostridioides difficile Toxin - Stool, Per Rectum [[id number]] (Abnormal) Collected: 06/26/2545 Lab Status: Final result Specimen: Stool from Per Rectum Updated: 06/26/25754 Narrative: The following orders were created for panel order Clostridioides difficile Toxin - Stool, Per Rectum. Procedure Abnormality Status --------- ------ Clostridioides difficile...[[id number]] Abnormal Final result Please view results for these tests on the individual orders. Clostridioides difficile Toxin, PCR - Stool, Per Rectum [[id number]] (Abnormal) Collected: 06/26/2545 Lab Status: Final result Specimen: Stool from Per Rectum Updated: 06/26/25754 Toxigenic C. difficile by PCR Detected Narrative: DNA from a toxigenic strain of C.difficile has been detected. Microbiology Results Abnormal Procedure Component Value - Date/Time Urine Culture - Urine, Indwelling Urethral Catheter [[id number]] (Abnormal) (Susceptibility) Collected: 06/25/252000 Lab Status: Final [...] Resistant Blood Culture - Blood, Hand, Right [[id number]] (Abnormal) (Susceptibility) Collected: 06/25/252029 Lab Status: Edited [...] report. Wound Culture - Swab, Foot, Left [[id number]] (Abnormal) (Susceptibility) Collected: 06/25/251817 Lab Status: Final [...] Culture ID, PCR - Blood, Hand, Right [[id number]] (Abnormal) Collected: 06/25/252029 Lab Status: Final result Specimen: Blood from Hand, Right Updated: 06/26/252101 BCID, PCR Enterococcus faecium. Zee/B (vancomycin resistance gene) not detected. Identification byBCID2 PCR. BOTTLE TYPE Anaerobic Bottle Narrative: Infectious disease consultation is highly recommended to rule out distant foci of infection. MRSA Screen, PCR (Inpatient) - Swab, Nares [[id number]] (Abnormal) Collected: 06/26/2545 Lab Status: Final result Specimen: Swab from Nares Updated: 06/26/25 0850 MRSA PCR Positive Narrative: The negative predictive value of this diagnostic test is high and should only be used to consider de-escalating anti-MRSA therapy. A positive result may indicate colonization with MRSA and must be correlated clinically. Gastrointestinal Panel, PCR - Stool, Per Rectum [[id number]] (Abnormal) Collected: 06/26/2545 Lab Status: Final result [...] Clostridioides difficile Toxin - Stool, Per Rectum [[id number]] (Abnormal) Collected: 06/26/2545 Lab Status: Final result Specimen: Stool from Per Rectum Updated: 06/26/25 7365 Narrative: The following orders were created for panel order Clostridioides difficile Toxin - Stool, Per Rectum. Procedure Abnormality Status --------- ------ Clostridioides difficile...[[id number]] Abnormal Final result Please view results for these tests on the individual orders. Clostridioides difficile Toxin, PCR - Stool, Per Rectum [[id number]] (Abnormal) Collected: 10/14/25 0046 Lab Status: Final result Specimen: Stool from Per Rectum Updated: 06/26/25 0755 Toxigenic C. difficile by PCR Detected Narrative: DNA from a toxigenic strain of C.difficile has been detected. Microbiology Results Abnormal Procedure Component Value - Date/Time Urine Culture - Urine, Indwelling Urethral Catheter [[id number]] (Abnormal) (Susceptibility) Collected: 06/25/252000 Lab Status: Final [...] Resistant Blood Culture - Blood, Hand, Right [[id number]] (Abnormal) (Susceptibility) Collected: 06/25/252029 Lab Status: Edited [...] report. Wound Culture - Swab, Foot, Left [[id number]] (Abnormal) (Susceptibility) Collected: 06/25/25 181 Lab Status: [...] Culture ID, PCR - Blood, Hand, Right [[id number]] (Abnormal) Collected: 06/25/252029 Lab Status: Final result Specimen: Blood from Hand, Right Updated: 06/26/252101 BCID, PCR Enterococcus faecium. Zee/B (vancomycin resistance gene) not detected. Identification byBCID2 PCR. BOTTLE TYPE Anaerobic Bottle Narrative: Infectious disease consultation is highly recommended to rule out distant foci of infection. MRSA Screen, PCR (Inpatient) - Swab, Nares [[id number]] (Abnormal) Collected: 06/26/2545 Lab Status: Final result Specimen: Swab from Nares Updated: 06/26/25 0850 MRSA PCR Positive Narrative: The negative predictive value of this diagnostic test is high and should only be used to consider de-escalating anti-MRSA therapy. A positive result may indicate colonization with MRSA and must be correlated clinically. Gastrointestinal Panel, PCR - Stool, Per Rectum [[id number]] (Abnormal) Collected: 06/26/2545 Lab Status: Final result [...] Clostridioides difficile Toxin - Stool, Per Rectum [[id number]] (Abnormal) Collected: 06/26/2545 Lab Status: Final result Specimen: Stool from Per Rectum Updated: 06/26/25754 Narrative: The following orders were created for panel order Clostridioides difficile Toxin - Stool, Per Rectum. Procedure Abnormality Status --------- ------ Clostridioides difficile...[[id number]] Abnormal Final result Please view results for these tests on the individual orders. Clostridioides difficile Toxin, PCR - Stool, Per Rectum [[id number]] (Abnormal) Collected: 06/26/2545 Lab Status: Final result Specimen: Stool from Per Rectum Updated: 06/26/25754 Toxigenic C. difficile by PCR Detected Narrative: DNA from a toxigenic strain of C.difficile has been detected. Microbiology Results Abnormal Procedure Component Value - Date/Time Urine Culture - Urine, Indwelling Urethral Catheter [[id number]] (Abnormal) (Susceptibility) Collected: 06/25/252000 Lab Status: Final [...] Resistant Blood Culture - Blood, Hand, Right [[id number]] (Abnormal) (Susceptibility) Collected: 06/25/25 2030 Lab Status: [...] report. Wound Culture - Swab, Foot, Left [[id number]] (Abnormal) (Susceptibility) Collected: 06/25/25 1818 Lab Status: [...] Culture ID, PCR - Blood, Hand, Right [[id number]] (Abnormal) Collected: 06/25/252029 Lab Status: Final result Specimen: Blood from Hand, Right Updated: 06/26/252101 BCID, PCR Enterococcus faecium. Zee/B (vancomycin resistance gene) not detected. Identification byBCID2 PCR. BOTTLE TYPE Anaerobic Bottle Narrative: Infectious disease consultation is highly recommended to rule out distant foci of infection. MRSA Screen, PCR (Inpatient) - Swab, Nares [[id number]] (Abnormal) Collected: 06/26/2545 Lab Status: Final result Specimen: Swab from Nares Updated: 06/26/25849 MRSA PCR Positive Narrative: The negative predictive value of this diagnostic test is high and should only be used to consider de-escalating anti-MRSA therapy. A positive result may indicate colonization with MRSA and must be correlated clinically. Gastrointestinal Panel, PCR - Stool, Per Rectum [[id number]] (Abnormal) Collected: 06/26/2545 Lab Status: Final result [...] Clostridioides difficile Toxin - Stool, Per Rectum [[id number]] (Abnormal) Collected: 06/26/2545 Lab Status: Final result Specimen: Stool from Per Rectum Updated: 06/26/25 075 Narrative: The following orders were created for panel order Clostridioides difficile Toxin - Stool, Per Rectum. Procedure Abnormality Status --------- ------ Clostridioides difficile...[[id number]] Abnormal Final result Please view results for these tests on the individual orders. Clostridioides difficile Toxin, PCR - Stool, Per Rectum [[id number]] (Abnormal) Collected: 06/26/2545 Lab Status: Final result Specimen: Stool from Per Rectum Updated: 06/26/25754 Toxigenic C. difficile by PCR Detected Narrative: DNA from a toxigenic strain of C.difficile has been detected. Microbiology Results Abnormal Procedure Component Value - Date/Time Urine Culture - Urine, Indwelling Urethral Catheter [[id number]] (Abnormal) (Susceptibility) Collected: 06/25/252000 Lab Status: Final [...] Resistant Blood Culture - Blood, Hand, Right [[id number]] (Abnormal) (Susceptibility) Collected: 06/25/252029 Lab Status: Edited [...] report. Wound Culture - Swab, Foot, Left [[id number]] (Abnormal) (Susceptibility) Collected: 06/25/25 1818 Lab Status: [...] Culture ID, PCR - Blood, Hand, Right [[id number]] (Abnormal) Collected: 06/25/25 2030 Lab Status: Final result Specimen: Blood from Hand, Right Updated: 06/26/252101 BCID, PCR Enterococcus faecium. Zee/B (vancomycin resistance gene) not detected. Identification byBCID2 PCR. BOTTLE TYPE Anaerobic Bottle Narrative: Infectious disease consultation is highly recommended to rule out distant foci of infection. MRSA Screen, PCR (Inpatient) - Swab, Nares [[id number]] (Abnormal) Collected: 06/26/2545 Lab Status: Final result Specimen: Swab from Nares Updated: 06/26/25849 MRSA PCR Positive Narrative: The negative predictive value of this diagnostic test is high and should only be used to consider de-escalating anti-MRSA therapy. A positive result may indicate colonization with MRSA and must be correlated clinically. Gastrointestinal Panel, PCR - Stool, Per Rectum [[id number]] (Abnormal) Collected: 06/26/2545 Lab Status: Final result [...] Clostridioides difficile Toxin - Stool, Per Rectum [[id number]] (Abnormal) Collected: 06/26/2545 Lab Status: Final result Specimen: Stool from Per Rectum Updated: 06/26/255 Narrative: The following orders were created for panel order Clostridioides difficile Toxin - Stool, Per Rectum. Procedure Abnormality Status --------- ------ Clostridioides difficile...[[id number]] Abnormal Final result Please view results for these tests on the individual orders. Clostridioides difficile Toxin, PCR - Stool, Per Rectum [[id number]] (Abnormal) Collected: 06/26/2545 Lab Status: Final result [...] [I73.9] Yes ??? 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 [...] does not want to go to a [facility], states that if we can avoid sending him to fci he may be agreeable to amputation. He is agreeable for short course of rehab/SNF after amputation however he states he does not want to but if ultimately he will end up in fci then he just wants to go home [...] finasteride. 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 Clinical Nutrition Assessment Subjective Subjective [...] fusion C3-4; Surgeon: Tyree Tan MD; Location: [facility]; Service: Neurosurgery; Laterality: Bilateral; AORTOGRAM N/A 01/26/2024 Procedure: ABDOMINAL AORTIC ANGIOGRAM, LLE ANGIOGRAM, LEFT ANTERIOR TIBIAL ATHERECTOMY, LEFT ANTERIOR TIBIAL ANGIOPLASTY; Surgeon: Archie Olvera MD; Location: [facility]; Service: Vascular; Laterality: N/A; CONTRAST: 50 ML, FT: 2 MIN 54 SEC, DOSE: 66 MGY. AORTOGRAM Left 07/03/2025 Procedure: ARTERIOGRAM LOWER EXTREMITY; Surgeon: Vaughn Hollingsworth DO; Location: [facility]; Service: Vascular; Laterality: Left; FT-6MINS [...] Laterality: Left; Please coordinate with Gautam Patel ([facility]) [phone] who will bring coils LUMBAR DISCECTOMY N/A 05/03/2019 Procedure: THORACIC LAMINECTOMY T11-12; Surgeon: Tyree Tan MD; Location: [facility]; Service: Neurosurgery Current Problems Admission Diagnosis: Cellulitis [L03.90] Problem List: Gastroenteritis due to norovirus Primary hypertension Seizure disorder 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 PAD (peripheral artery [...] Weight: 117 kg (258 lb 14.4 oz) (10/27/25 0600) Weight Method: Bed scale BMI (Calculated): [...] Intake & Output (last 3 days) 07/07 0700 P.O. 440 480 IV Piggyback 100 [...] hospice visit tomorrow. Pt verbalized understanding. Pt's research staff member updated [id number]. Palliative care provider, Talisha PAREKH, was also present. If further assistance is needed, please call [phone]. Discharge Codes No documentation. Expected Discharge Date [...] to above ankle, constant aching with burning, /10. +debility. +nausea, intermittent. +shortness of breath, intermittent, on RA. Denies vomiting and anxiety. LBM 07/10. O: Code Status: Code Status and Medical Interventions: CPR (Attempt to Resuscitate); Full Support Ordered at: 06/25/25 1897 Code Status (Patient has no pulse and [...] hypertension Seizure disorder 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 PAD (peripheral artery [...] Time spent: 20 minutes * Osmany Mccann [facility] - 07/10/2025 11:00 AM EDT Pharmacy Consult [...] labs and antibiotic administration Thanks Osmany Mccann [facility] 07/09/2025 08:14 EDT * Duglas Andres MD - 07/10/2025 7:44 AM EDT Trung Pool [id number] Date of Consult: 07/10/2025 Evaluating Physician: Duglas [...] excoriation/crusted areas at the toes, hospitalized at [facility] June 04 untilSe2022 and discharged with oral antibiotics for left lower extremity cellulitis; he alsohas nonhealing wounds at his buttocks 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 Admitted to [facility] June 13 2023 diagnosis of sepsis per admission notes, left lower extremity cellulitis with pressure injury at buttocks. 06/15/24 Dr Colón saw and recommended amputation; patient refused ; see his note for detail 06/17/23 Dr buenrostro discussed potential options for heel debridement with patient; MRI no osteomyelitis per radiology; taken to OR PROCEDURE: Left 08590: Debridement of skin and subcutaneous tissue 40035: wound vacuum-assisted closure, wound measuring 2.5 cm [...] 07/25/[address] Buenrostro PROCEDURE: Left 16875: Debridement of skin and subcutaneous tissue 77678: Wound vacuum-assisted closure culture data with MRSA/aneta. [...] possible intervention 01/28/24 Dr. 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 Faust in [place] and has seen Dr Oneal (ID in [place]); he is not a good historian with respect to detail. Reports having had some further surgery to the left foot although he is unable to clarify specific date/procedure. Culture at [facility] August 07, 2024 from left foot wound with ESBL Klebsiella pneumoniae and pseudomonas aeruginosa (microbiology lab there reports the Pseudomonas is sensitive to Merrem). He reports his outpatient practitioners had recommended admission to the hospital for IV antibiotics but patient had refused at that time. He also reports that he was in the emergency room at [facility] mid August, no cultures done at that time. Patient reports practitioners at [facility] had recommended higher level amputation but patient has continued to refuse that. He was readmitted to [facility] on August 31, 2024 with worsening odor/drainage andredness/pain to the left lower extremity in recent days/weeks. He reports having been taking outpatient Levaquin; prior history MRSA/PSA and ESBL organisms 09/04/24 Dr Marcano. Procedure/CPT?? Codes: RIGHT AFTER SCHOOL TEACHER access - ultrasound guided Aortogram with LEFT lower extremity run-off LEFT PT angioplasty (5e541mb Nanocross) LEFT plantar angioplasty ([id number] Nanocross, 2.0o917sl UltraverseRx) LEFT AT angioplasty (2d474si Nanocross, 2.7i102rn UltraverseRx) LEFT DP angioplasty (2u814xy Nanocross, 2.6m830mr UltraverseRx) RIGHT AFTER SCHOOL TEACHER closure (Angioseal) 09/07/24 Dr Marcano Procedure/CPT?? Codes: RIGHT AFTER SCHOOL TEACHER access - ultrasound guided Aortogram with LEFT lower extremity run-off LEFT Pr AVF embolization RIGHT AFTER SCHOOL TEACHER closure 09/09/24 moved to ICU overnight with [...] femoral artery and left popliteal artery 6 [place] Angio-Seal closure of right common femoral arteriotomy [...] Cecil Buenrostro Jr., MD; Location: [facility]; Service: Orthopedics; Laterality: Left; ANTERIOR CERVICAL DISCECTOMY W/ FUSION Bilateral 07/17/2020 Procedure: Cervical discectomy anterior with fusion C3-4; Surgeon: Tyree Tan MD; Location: [facility]; Service: Neurosurgery; Laterality: Bilateral; AORTOGRAM N/A 01/26/2024 Procedure: ABDOMINAL AORTIC ANGIOGRAM, LLE ANGIOGRAM, LEFT ANTERIOR TIBIAL ATHERECTOMY, LEFT ANTERIOR TIBIAL ANGIOPLASTY; Surgeon: Archie Olvera MD; Location: [facility]; Service: Vascular; Laterality: N/A; CONTRAST: 50 ML, FT: 2 MIN 54 SEC, DOSE: 66 MGY. AORTOGRAM Left 07/03/2025 Procedure: ARTERIOGRAM LOWER EXTREMITY; Surgeon: Vaughn Hollingsworth DO; Location: [facility]; Service: Vascular; Laterality: Left; FT-6MINS 24SEC 140 MGY CONTRAST -15ML BACK SURGERY FOR DISC HERNIATION CARDIAC CATHETERIZATION CARDIAC CATHETERIZATION N/A 09/04/2024 Procedure: Peripheral angiography - Left lower extremity angio - Right femoral access; Surgeon: Jared Marcano MD; Location: [facility]; Service: Peripheral Vascular; Laterality: N/A; CORONARY ANGIOPLASTY WITH STENT PLACEMENT stent x 1 INCISION AND DRAINAGE FOOT Left 06/17/2023 Procedure: LEFT FOOT DEBRIDEMENT WOUND VACUUM ASSISTED CLOSURE; Surgeon: Cecil Buenrostro Jr., MD;Location: [facility]; Service: Orthopedics; Laterality: Left; INCISION AND DRAINAGE LEG Left 07/25/2023 Procedure: INCISION AND DRAINAGE HEEL, WOUND VAC; Surgeon: Cecil Buenrostro Jr., MD; Location: [facility]; Service: Orthopedics; Laterality: Left; INCISION AND DRAINAGE LEG Left 07/03/2025 Procedure: DEBRIDEMENT WOUND, PLACEMENT OF WOUND VAC; Surgeon: Vaughn Hollingsworth DO; Location: [facility]; Service: Vascular; Laterality: Left; INTERVENTIONAL RADIOLOGY PROCEDURE N/A 05/02/2019 Procedure: IVC FILTER PLACEMENT; Surgeon: Pedro Zapien MD; Location: [facility]; Service: Interventional Radiology INTERVENTIONAL RADIOLOGY PROCEDURE Left 09/07/2024 Procedure: LEFT peroneal arteriovenous fistula embolization - Right femoral access; Surgeon: Jared Marcano MD; Location: [facility]; Service: Cardiovascular; Laterality: Left; Please coordinate with Gautam Patel ([facility]) [phone] who will bring coils LUMBAR DISCECTOMY N/A 05/03/2019 Procedure: THORACIC LAMINECTOMY T11-12; Surgeon: Tyree Tan MD; Location: [facility]; Service: Neurosurgery Pediatric History Patient Parents [...] (dosing per levels) Ordering Provider: Osmany Mccann [facility] Not Applicable Daily 07/09/25 0900 07/17/25 0859 [...] complaints. No epistaxis or oral sores. Denies odynophagia or dysphagia. No flashers, floaters or eye pain. [...] sensitive to Merrem per microbiology lab at [facility]. 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 He has riskfor active disease and does have symptomatology and [...] 400-400-40 MG/5ML suspension 15 mL 15 mL [id number] PRN Amanda Bermudez MD [Held by provider] [...] 10 mL Intravenous PRN Ally Jeffers V, CONSTRUCTION COST ESTIMATOR sodium chloride 0.9 % flush 10 mL [...] IVPB-VTB 1,000 mg Intravenous Q12H Osmany Mccann, H 250 mL/hr at 07/01/252142 1,000 mg at [...] mg Oral Weekly Duglas Andres MD * Taylor Werner - 07/09/2025 12:10 PM EDT Continued Stay Note COLLIN Fernando Patient Name: Trung Pool Today's Date: 07/09/2025 Admit Date: 06/25/2025 Plan: TBD Discharge Plan Row Name 07/09/25 1207 Plan Plan TBD Patient/Family in Agreement with Plan yes Plan Comments Hospice f/u visit made. Pt was lying in bed asleep w/ no family present. HL attemptedto wake the pt several times, but pt did not wake. HL spoke w/ research staff member, Norma, & asked that she send HL [...] If further assistance is need please call [phone]. Discharge Codes No documentation. Expected Discharge Date and Time Expected Discharge Date Expected Discharge Time Jul 10, 2025 Taylor Werner * Gigi Alcantara MD - 07/09/2025 11:19 AM EDT Images from the original note were not included. [facility] Medicine Services PROGRESS NOTE Patient Name: Trung [...] Urine Culture - Urine, Indwelling Urethral Catheter [[id number]] (Abnormal) (Susceptibility) Collected: 06/25/252000 Lab Status: Final [...] Resistant Blood Culture - Blood, Hand, Right [[id number]] (Abnormal) (Susceptibility) Collected: 06/25/252029 Lab Status: Edited [...] report. Wound Culture - Swab, Foot, Left [[id number]] (Abnormal) (Susceptibility) Collected: 06/25/25 181 Lab Status: [...] Culture ID, PCR - Blood, Hand, Right [[id number]] (Abnormal) Collected: 06/25/252029 Lab Status: Final result Specimen: Blood from Hand, Right Updated: 06/26/252101 BCID, PCR Enterococcus faecium. Zee/B (vancomycin resistance gene) not detected. Identification by BCID2 PCR. BOTTLE TYPE Anaerobic Bottle Narrative: Infectious disease consultation is highly recommended to rule out distant foci of infection. MRSA Screen, PCR (Inpatient) - Swab, Nares [[id number]] (Abnormal) Collected: 06/26/2545 Lab Status: Final result Specimen: Swab from Nares Updated: 06/26/2550 MRSA PCR Positive Narrative: The negative predictive value of this diagnostic test is high and should only be used to consider de-escalating anti-MRSA therapy. A positive result may indicate colonization with MRSA and must be correlated clinically. Gastrointestinal Panel, PCR - Stool, Per Rectum [[id number]] (Abnormal) Collected: 06/26/2545 Lab Status: Final result [...] Clostridioides difficile Toxin - Stool, Per Rectum [[id number]] (Abnormal) Collected: 06/26/2545 Lab Status: Final result Specimen: Stool from Per Rectum Updated: 06/26/25754 Narrative: The following orders were created for panel order Clostridioides difficile Toxin - Stool, Per Rectum. Procedure Abnormality Status --------- ------ Clostridioides difficile...[[id number]] Abnormal Final result Please view results for these tests on the individual orders. Clostridioides difficile Toxin, PCR - Stool, Per Rectum [[id number]] (Abnormal) Collected: 06/26/2545 Lab Status: Final result Specimen: Stool from Per Rectum Updated: 06/26/25754 Toxigenic C. difficile by PCR Detected Narrative: DNA from a toxigenic strain of C.difficile has been detected. Microbiology Results Abnormal Procedure Component Value - Date/Time Urine Culture - Urine, Indwelling Urethral Catheter [[id number]] (Abnormal) (Susceptibility) Collected: 06/25/252000 Lab Status: Final [...] Resistant Blood Culture - Blood, Hand, Right [[id number]] (Abnormal) (Susceptibility) Collected: 06/25/252029 Lab Status: Edited [...] report. Wound Culture - Swab, Foot, Left [[id number]] (Abnormal) (Susceptibility) Collected: 06/25/251817 Lab Status: Final result Specimen: Swab from Foot, Left Updated: 06/29/2545 Wound Culture Heavy growth (4+) Staphylococcus aureus, [...] Culture ID, PCR - Blood, Hand, Right [[id number]] (Abnormal) Collected: 06/25/252029 Lab Status: Final result Specimen: Blood from Hand, Right Updated: 06/26/252101 BCID, PCR Enterococcus faecium. Zee/B (vancomycin resistance gene) not detected. Identification by BCID2 PCR. BOTTLE TYPE Anaerobic Bottle Narrative: Infectious disease consultation is highly recommended to rule out distant foci of infection. MRSA Screen, PCR (Inpatient) - Swab, Nares [[id number]] (Abnormal) Collected: 06/26/2545 Lab Status: Final result Specimen: Swab from Nares Updated: 06/26/25 0850 MRSA PCR Positive Narrative: The negative predictive value of this diagnostic test is high and should only be used to consider de-escalating anti-MRSA therapy. A positive result may indicate colonization with MRSA and must be correlated clinically. Gastrointestinal Panel, PCR - Stool, Per Rectum [[id number]] (Abnormal) Collected: 06/26/2545 Lab Status: Final result [...] Clostridioides difficile Toxin - Stool, Per Rectum [[id number]] (Abnormal) Collected: 06/26/2545 Lab Status: Final result Specimen: Stool from Per Rectum Updated: 06/26/25 2447 Narrative: The following orders were created for panel order Clostridioides difficile Toxin - Stool, Per Rectum. Procedure Abnormality Status --------- ------ Clostridioides difficile...[[id number]] Abnormal Final result Please view results for these tests on the individual orders. Clostridioides difficile Toxin, PCR - Stool, Per Rectum [[id number]] (Abnormal) Collected: 06/26/25 0046 Lab Status: Final result Specimen: Stool from Per Rectum Updated: 06/26/25 0755 Toxigenic C. difficile by PCR Detected Narrative: DNA from a toxigenic strain of C.difficile has been detected. Microbiology Results Abnormal Procedure Component Value - Date/Time Urine Culture - Urine, Indwelling Urethral Catheter [[id number]] (Abnormal) (Susceptibility) Collected: 06/25/252000 Lab Status: Final [...] Resistant Blood Culture - Blood, Hand, Right [[id number]] (Abnormal) (Susceptibility) Collected: 06/25/252029 Lab Status: Edited [...] report. Wound Culture - Swab, Foot, Left [[id number]] (Abnormal) (Susceptibility) Collected: 06/25/25 1818 Lab Status: [...] Culture ID, PCR - Blood, Hand, Right [[id number]] (Abnormal) Collected: 06/25/252029 Lab Status: Final result Specimen: Blood from Hand, Right Updated: 06/26/252101 BCID, PCR Enterococcus faecium. Zee/B (vancomycin resistance gene) not detected. Identification by BCID2 PCR. BOTTLE TYPE Anaerobic Bottle Narrative: Infectious disease consultation is highly recommended to rule out distant foci of infection. MRSA Screen, PCR (Inpatient) - Swab, Nares [[id number]] (Abnormal) Collected: 06/26/25 0046 Lab Status: Final result Specimen: Swab from Nares Updated: 06/26/25 0850 MRSA PCR Positive Narrative: The negative predictive value of this diagnostic test is high and should only be used to consider de-escalating anti-MRSA therapy. A positive result may indicate colonization with MRSA and must be correlated clinically. Gastrointestinal Panel, PCR - Stool, Per Rectum [[id number]] (Abnormal) Collected: 06/26/2545 Lab Status: Final result [...] Clostridioides difficile Toxin - Stool, Per Rectum [[id number]] (Abnormal) Collected: 06/26/2545 Lab Status: Final result Specimen: Stool from Per Rectum Updated: 06/26/25 0755 Narrative: The following orders were created for panel order Clostridioides difficile Toxin - Stool, Per Rectum. Procedure Abnormality Status --------- ------ Clostridioides difficile...[[id number]] Abnormal Final result Please view results for these tests on the individual orders. Clostridioides difficile Toxin, PCR - Stool, Per Rectum [[id number]] (Abnormal) Collected: 06/26/2545 Lab Status: Final result Specimen: Stool from Per Rectum Updated: 06/26/25 0755 Toxigenic C. difficile by PCR Detected Narrative: DNA from a toxigenic strain of C.difficile has been detected. Microbiology Results Abnormal Procedure Component Value - Date/Time Urine Culture - Urine, Indwelling Urethral Catheter [[id number]] (Abnormal) (Susceptibility) Collected: 06/25/252000 Lab Status: Final [...] Resistant Blood Culture - Blood, Hand, Right [[id number]] (Abnormal) (Susceptibility) Collected: 06/25/25 2030 Lab Status: [...] report. Wound Culture - Swab, Foot, Left [[id number]] (Abnormal) (Susceptibility) Collected: 06/25/25 1818 Lab Status: [...] Culture ID, PCR - Blood, Hand, Right [[id number]] (Abnormal) Collected: 06/25/252029 Lab Status: Final result Specimen: Blood from Hand, Right Updated: 06/26/252101 BCID, PCR Enterococcus faecium. Zee/B (vancomycin resistance gene) not detected. Identification by BCID2 PCR. BOTTLE TYPE Anaerobic Bottle Narrative: Infectious disease consultation is highly recommended to rule out distant foci of infection. MRSA Screen, PCR (Inpatient) - Swab, Nares [[id number]] (Abnormal) Collected: 06/26/2545 Lab Status: Final result Specimen: Swab from Nares Updated: 06/26/2550 MRSA PCR Positive Narrative: The negative predictive value of this diagnostic test is high and should only be used to consider de-escalating anti-MRSA therapy. A positive result may indicate colonization with MRSA and must be correlated clinically. Gastrointestinal Panel, PCR - Stool, Per Rectum [[id number]] (Abnormal) Collected: 06/26/2545 Lab Status: Final result [...] Clostridioides difficile Toxin - Stool, Per Rectum [[id number]] (Abnormal) Collected: 06/26/2545 Lab Status: Final result Specimen: Stool from Per Rectum Updated: 06/26/25754 Narrative: The following orders were created for panel order Clostridioides difficile Toxin - Stool, Per Rectum. Procedure Abnormality Status --------- ------ Clostridioides difficile...[[id number]] Abnormal Final result Please view results for these tests on the individual orders. Clostridioides difficile Toxin, PCR - Stool, Per Rectum [[id number]] (Abnormal) Collected: 06/26/2545 Lab Status: Final result Specimen: Stool from Per Rectum Updated: 06/26/25754 Toxigenic C. difficile by PCR Detected Narrative: DNA from a toxigenic strain of C.difficile has been detected. Microbiology Results Abnormal Procedure Component Value - Date/Time Urine Culture - Urine, Indwelling Urethral Catheter [[id number]] (Abnormal) (Susceptibility) Collected: 06/25/252000 Lab Status: Final [...] Resistant Blood Culture - Blood, Hand, Right [[id number]] (Abnormal) (Susceptibility) Collected: 06/25/252029 Lab Status: Edited [...] report. Wound Culture - Swab, Foot, Left [[id number]] (Abnormal) (Susceptibility) Collected: 06/25/25 1818 Lab Status: [...] Culture ID, PCR - Blood, Hand, Right [[id number]] (Abnormal) Collected: 06/25/25 2030 Lab Status: Final result Specimen: Blood from Hand, Right Updated: 06/26/252101 BCID, PCR Enterococcus faecium. Zee/B (vancomycin resistance gene) not detected. Identification by BCID2 PCR. BOTTLE TYPE Anaerobic Bottle Narrative: Infectious disease consultation is highly recommended to rule out distant foci of infection. MRSA Screen, PCR (Inpatient) - Swab, Nares [[id number]] (Abnormal) Collected: 06/26/2545 Lab Status: Final result Specimen: Swab from Nares Updated: 06/26/25 0850 MRSA PCR Positive Narrative: The negative predictive value of this diagnostic test is high and should only be used to consider de-escalating anti-MRSA therapy. A positive result may indicate colonization with MRSA and must be correlated clinically. Gastrointestinal Panel, PCR - Stool, Per Rectum [[id number]] (Abnormal) Collected: 06/26/2545 Lab Status: Final result [...] Clostridioides difficile Toxin - Stool, Per Rectum [[id number]] (Abnormal) Collected: 06/26/2545 Lab Status: Final result Specimen: Stool from Per Rectum Updated: 06/26/25 5815 Narrative: The following orders were created for panel order Clostridioides difficile Toxin - Stool, Per Rectum. Procedure Abnormality Status --------- ------ Clostridioides difficile...[[id number]] Abnormal Final result Please view results for these tests on the individual orders. Clostridioides difficile Toxin, PCR - Stool, Per Rectum [[id number]] (Abnormal) Collected: 06/26/25 0046 Lab Status: Final [...] [I73.9] Yes ??? 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 [...] does not want to go to a fci, states that if we can avoid sending him to fci he may be agreeable to amputation. He is agreeable for short course of rehab/SNF after amputation however he states he does not want to but if ultimately he will end up in fci then he just wants to go home [...] finasteride. 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 male receiving [...] adjust dose accordingly Thanks Osmany Mccann RPH 07/09/2025 08:14 EDT * Duglas Andres MD - 07/09/2025 8:09 AM EDT Trung Michelle Pool 1955 [id number] Date of Consult: 07/09/2025 Evaluating Physician: Duglas [...] excoriation/crusted areas at the toes, hospitalized at [facility] June 04 untilSe2022 and discharged with oral antibiotics for left lower extremity cellulitis; he alsohas nonhealing wounds at his buttocks 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 Admitted to [facility] June 13 2023 diagnosis of sepsis per admission notes, left lower extremity cellulitis with pressure injury at buttocks. 06/15/24 Dr Colón saw and recommended amputation; patient refused ; see his note for detail 06/17/23 Dr buenrostro discussed potential options for heel debridement with patient; MRI no osteomyelitis per radiology; taken to OR PROCEDURE: Left 10697: Debridement of skin and subcutaneous tissue 63237: wound vacuum-assisted closure, wound measuring 2.5 cm [...] 07/25/[address] Buenrostro PROCEDURE: Left 15192: Debridement of skin and subcutaneous tissue 72333: Wound vacuum-assisted closure culture data with MRSA/aneta. [...] possible intervention 01/28/24 Dr. 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 Faust in [place] and has seen Dr Oneal (ID in [place]); he is not a good historian with respect to detail. Reports having had some further surgery to the left foot although he is unable to clarify specific date/procedure. Culture at [facility] August 07, 2024 from left foot wound with ESBL Klebsiella pneumoniae and pseudomonas aeruginosa (microbiology lab there reports the Pseudomonas is sensitive to Merrem). He reports his outpatient practitioners had recommended admission to the hospital for IV antibiotics but patient had refused at that time. He also reports that he was in the emergency room at [facility] mid August, no cultures done at that time. Patient reports practitioners at [facility] had recommended higher level amputation but patient has continued to refuse that. He was readmitted to [facility] on August 31, 2024 with worsening odor/drainage andredness/pain to the left lower extremity in recent days/weeks. He reports having been taking outpatient Levaquin; prior history MRSA/PSA and ESBL organisms 09/04/24 Dr Marcano. Procedure/CPT?? Codes: RIGHT AFTER SCHOOL TEACHER access - ultrasound guided Aortogram with LEFT lower extremity run-off LEFT PT angioplasty ([id number] Nanocross) LEFT plantar angioplasty (1f414up Nanocross, 2.0v025yb UltraverseRx) LEFT AT angioplasty ([id number] Nanocross, 2.8m464ck UltraverseRx) LEFT DP angioplasty (3x681ga Nanocross, 2.3x663cs UltraverseRx) RIGHT AFTER SCHOOL TEACHER closure (Angioseal) 09/07/24 Dr Marcano Procedure/CPT?? Codes: RIGHT AFTER SCHOOL TEACHER access - ultrasound guided Aortogram with LEFT lower extremity run-off LEFT Pr AVF embolization RIGHT AFTER SCHOOL TEACHER closure 09/09/24 moved to ICU overnight with [...] femoral artery and left popliteal artery 6 [place] Angio-Seal closure of right common femoral arteriotomy [...] and 2-4 out of 10 in severity. Rednessand swelling better overall Chronic [place] [...] LEFT; Surgeon: Cecil Buenrostro Jr., MD; Location: [facility]; Service: Orthopedics; Laterality: Left; ANTERIOR CERVICAL DISCECTOMY W/ FUSION Bilateral 07/17/2020 Procedure: Cervical discectomy anterior with fusion C3-4; Surgeon: Tyree Tan MD; Location: [facility]; Service: Neurosurgery; Laterality: Bilateral; AORTOGRAM N/A 01/26/2024 Procedure: ABDOMINAL AORTIC ANGIOGRAM, LLE ANGIOGRAM, LEFT ANTERIOR TIBIAL ATHERECTOMY, LEFT ANTERIOR TIBIAL ANGIOPLASTY; Surgeon: Archie Olvera MD; Location: [facility]; Service: Vascular; Laterality: N/A; CONTRAST: 50 ML, FT: 2 MIN 54 SEC, DOSE: 66 MGY. AORTOGRAM Left 07/03/2025 Procedure: ARTERIOGRAM LOWER EXTREMITY; Surgeon: Vaughn Hollingsworth DO; Location: [facility]; Service: Vascular; Laterality: Left; FT-6MINS [...] WOUND VAC; Surgeon: Vaughn Hollingsworth DO; Location: [facility]; Service: Vascular; Laterality: Left; INTERVENTIONAL RADIOLOGY PROCEDURE N/A 05/02/2019 Procedure: IVC FILTER PLACEMENT; Surgeon: Pedro Zapien MD; Location: [facility]; Service: Interventional Radiology INTERVENTIONAL RADIOLOGY PROCEDURE Left 09/07/2024 Procedure: LEFT peroneal arteriovenous fistula embolization - Right femoral access; Surgeon: Jared Marcano MD; Location: [facility]; Service: Cardiovascular; Laterality: Left; Please coordinate with Gautam Patel ([facility] [phone] who will bring coils LUMBAR DISCECTOMY N/A [...] Vaughn Hollingsworth DO Placed in Followed by [facility] 125 mg Oral Weekly 08/01/25 [...] 250 mL VTB Status: Discontinued Ordering Provider: Osmnay Mccann RPH 1,250 mg 200 mL/hr over 75 Minutes Intravenous Every 12 Hours 06/27/25 2100 06/28/25 0724 06/27/25 0856 vancomycin 2500 mg/500 mL 0.9% NS IVPB ([facility]) Ordering Provider: Osmany Mccann RPH 2,500 mg over 150 Minutes Intravenous Once 06/27/25 0945 06/27/25 1150 06/27/25 0808 vancomycin 2250 mg/500 mL 0.9% NS IVPB ([facility]) Status: Discontinued Ordering Provider: Osmany Mccann, [facility] 2,250 mg over 135 Minutes Intravenous Once [...] sensitive to Merrem per microbiology lab at [facility]. 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 [facility] Medicine Services PROGRESS NOTE Patient Name: Trung [...] have more information if he will need fci after amputation as he is opposed to this. If we are able to provide him with resources and assistance in getting stronger and avoiding fci he may be agreeable to amputation. Objective [...] clear Skin: No rashes, pale [place] to BSD Results Reviewed: LAB RESULTS: Lab [...] Urine Culture - Urine, Indwelling Urethral Catheter [[id number]] (Abnormal) (Susceptibility) Collected: 06/25/252000 Lab Status: Final [...] Resistant Blood Culture - Blood, Hand, Right [[id number]] (Abnormal) (Susceptibility) Collected: 06/25/25 2030 Lab Status: [...] report. Wound Culture - Swab, Foot, Left [[id number]] (Abnormal) (Susceptibility) Collected: 06/25/25 1818 Lab Status: [...] Culture ID, PCR - Blood, Hand, Right [[id number]] (Abnormal) Collected: 06/25/252029 Lab Status: Final result Specimen: Blood from Hand, Right Updated: 06/26/252101 BCID, PCR Enterococcus faecium. Zee/B (vancomycin resistance gene) not detected. Identification by BCID2 PCR. BOTTLE TYPE Anaerobic Bottle Narrative: Infectious disease consultation is highly recommended to rule out distant foci of infection. MRSA Screen, PCR (Inpatient) - Swab, Nares [[id number]] (Abnormal) Collected: 06/26/2545 Lab Status: Final result Specimen: Swab from Nares Updated: 06/26/25 0850 MRSA PCR Positive Narrative: The negative predictive value of this diagnostic test is high and should only be used to consider de-escalating anti-MRSA therapy. A positive result may indicate colonization with MRSA and must be correlated clinically. Gastrointestinal Panel, PCR - Stool, Per Rectum [[id number]] (Abnormal) Collected: 06/26/2545 Lab Status: Final result [...] Clostridioides difficile Toxin - Stool, Per Rectum [[id number]] (Abnormal) Collected: 06/26/2545 Lab Status: Final result Specimen: Stool from Per Rectum Updated: 06/26/25754 Narrative: The following orders were created for panel order Clostridioides difficile Toxin - Stool, Per Rectum. Procedure Abnormality Status --------- ------ Clostridioides difficile...[[id number]] Abnormal Final result Please view results for these tests on the individual orders. Clostridioides difficile Toxin, PCR - Stool, Per Rectum [[id number]] (Abnormal) Collected: 06/26/2545 Lab Status: Final result [...] [I73.9] Yes ??? 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 [...] does not want to go to a fci, states that if we can avoid sending him to fci he may be agreeable to amputation. He is agreeable for short course of rehab/SNF after amputation however he states he does not want to but if ultimately he will end up in fci then he just wants to go home [...] Plan to follow up outpatient for senior care bladder management Norovirus GI PCR panel with [...] minutes Time spent includes time reviewing chart, owoc-bj-teka time, counseling patient/family/caregiver, ordering medications/tests/procedures, communicating with other health emergency care tech, documenting clinical information in the electronic health [...] - 07/08/2025 8:07 AM EDT Trung Martinez [facility] 1955 [id number] Date of Consult: 07/08/2025 Evaluating Physician: Duglas [...] excoriation/crusted areas at the toes, hospitalized at [facility] June 04 untilSe2022 and discharged with oral antibiotics for left lower extremity cellulitis; he alsohas nonhealing wounds at his buttocks 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 Admitted to [facility] June 13 2023 diagnosis of sepsis per admission notes, left lower extremity cellulitis with pressure injury at buttocks. 06/15/24 Dr Colón saw and recommended amputation; patient refused ; see his note for detail 06/17/23 Dr buenrostro discussed potential options for heel debridement with patient; MRI no osteomyelitis per radiology; taken to OR PROCEDURE: Left 80779: Debridement of skin and subcutaneous tissue 83449: wound vacuum-assisted closure, wound measuring 2.5 cm [...] 07/25/[address] Buenrostro PROCEDURE: Left 23813: Debridement of skin and subcutaneous tissue 21262: Wound vacuum-assisted closure culture data with MRSA/aneta. [...] to left CHIP per vascular team d/w ut Procedure/CPT?? Codes: Procedure(s): LLE arteriogram with run-off possible intervention 01/28/24 Dr. 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 Faust in [place] and has seen Dr Oneal (ID in [place]); he is not a good historian with respect to detail. Reports having had some further surgery to the left foot although he is unable to clarify specific date/procedure. Culture at [facility] August 07, 2024 from left foot wound with ESBL Klebsiella pneumoniae and pseudomonas aeruginosa (microbiology lab there reports the Pseudomonas is sensitive to Merrem). He reports his outpatient practitioners had recommended admission to the hospital for IV antibiotics but patient had refused at that time. He also reports that he was in the emergency room at [facility] mid August, no cultures done at that time. Patient reports practitioners at [facility] had recommended higher level amputation but patient has continued to refuse that. He was readmitted to [facility] on August 31, 2024 with worsening odor/drainage andredness/pain to the left lower extremity in recent days/weeks. He reports having been taking outpatient Levaquin; prior history MRSA/PSA and ESBL organisms 09/04/24 Dr Marcano. Procedure/CPT?? Codes: RIGHT AFTER SCHOOL TEACHER access - ultrasound guided Aortogram with LEFT lower extremity run-off LEFT PT angioplasty ([id number] Nanocross) LEFT plantar angioplasty (8x507he Nanocross, 2.4n607po UltraverseRx) LEFT AT angioplasty (0b951lp Nanocross, 2.6x219ke UltraverseRx) LEFT DP angioplasty (0g486dy Nanocross, 2.8q970by UltraverseRx) RIGHT AFTER SCHOOL TEACHER closure (Angioseal) 09/07/24 Dr Marcano Procedure/CPT?? Codes: RIGHT AFTER SCHOOL TEACHER access - ultrasound guided Aortogram with LEFT lower extremity run-off LEFT Pr AVF embolization RIGHT AFTER SCHOOL TEACHER closure 09/09/24 moved to ICU overnight with [...] femoral artery and left popliteal artery 6 [place] Angio-Seal closure of right common femoral arteriotomy [...] LEFT; Surgeon: Cecil Buenrostro Jr., MD; Location: [facility]; Service: Orthopedics; Laterality: Left; ANTERIOR CERVICAL DISCECTOMY W/ FUSION Bilateral 07/17/2020 Procedure: Cervical discectomy anterior with fusion C3-4; Surgeon: Tyree Tan MD; Location: [facility]; Service: Neurosurgery; Laterality: Bilateral; AORTOGRAM N/A 01/26/2024 Procedure: ABDOMINAL AORTIC ANGIOGRAM, LLE ANGIOGRAM, LEFT ANTERIOR TIBIAL ATHERECTOMY, LEFT ANTERIOR TIBIAL ANGIOPLASTY; Surgeon: Archie Olvera MD; Location: [facility]; Service: Vascular; Laterality: N/A; CONTRAST: 50 ML, FT: 2 MIN 54 SEC, DOSE: 66 MGY. AORTOGRAM Left 07/03/2025 Procedure: ARTERIOGRAM LOWER EXTREMITY; Surgeon: Vaughn Hollingsworth DO; Location: [facility]; Service: Vascular; Laterality: Left; FT-6MINS [...] ASSISTED CLOSURE; Surgeon: Cecil Buenrostro Jr., MD;Location: [facility]; Service: Orthopedics; Laterality: Left; INCISION AND [...] Laterality: Left; Please coordinate with Gautam Patel ([facility]) [phone] who will bring coils LUMBAR DISCECTOMY N/A [...] Vaughn Hollingsworth DO Placed in Followed by [facility] 125 mg Oral 4 Times [...] Minutes Intravenous Once 06/26/25 0600 06/25/25 23106/25/25 2312 piperacillin-tazobactam (ZOSYN) 4.5 g IVPB in [...] sensitive to Merrem per microbiology lab at [facility]. 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 [facility] Medicine Services PROGRESS NOTE Patient Name: Trung [...] to BSD Results Reviewed: LAB RESULTS: Lab 07/07/2534207/06/25124507/04/2534607/02/25358 WBC 7.72 8.43 8.21 7.10 HEMOGLOBIN 9.3* 9.5* 9.3* 9.8* HEMATOCRIT 30.9* 31.1* 31.1* 32.8* PLATELETS 275 300 264 296 NEUTROS ABS -- -- 5.86 -- IMMATURE GRANS (ABS) -- -- 0.05 -- LYMPHS ABS -- -- 1.53 -- MONOS ABS -- -- 0.70 -- EOS ABS -- -- 0.04 -- MCV 79.0 77.8* 77.2* 79.0 Lab 07/07/2534207/06/25 1246 07/05/25 0434 07/04/25 0615 07/04/2534607/02/25 035 SODIUM 134* 134* 134* -- 135* 136 [...] Urine Culture - Urine, Indwelling Urethral Catheter [[id number]] (Abnormal) (Susceptibility) Collected: 06/25/252000 Lab Status: Final [...] Resistant Blood Culture - Blood, Hand, Right [[id number]] (Abnormal) (Susceptibility) Collected: 06/25/252029 Lab Status: Edited [...] report. Wound Culture - Swab, Foot, Left [[id number]] (Abnormal) (Susceptibility) Collected: 06/25/25 181 Lab Status: [...] Culture ID, PCR - Blood, Hand, Right [[id number]] (Abnormal) Collected: 06/25/252029 Lab Status: Final result Specimen: Blood from Hand, Right Updated: 06/26/252101 BCID, PCR Enterococcus faecium. Zee/B (vancomycin resistance gene) not detected. Identification byBCID2 PCR. BOTTLE TYPE Anaerobic Bottle Narrative: Infectious disease consultation is highly recommended to rule out distant foci of infection. MRSA Screen, PCR (Inpatient) - Swab, Nares [[id number]] (Abnormal) Collected: 06/26/2545 Lab Status: Final result Specimen: Swab from Nares Updated: 06/26/2550 MRSA PCR Positive Narrative: The negative predictive value of this diagnostic test is high and should only be used to consider de-escalating anti-MRSA therapy. A positive result may indicate colonization with MRSA and must be correlated clinically. Gastrointestinal Panel, PCR - Stool, Per Rectum [[id number]] (Abnormal) Collected: 06/26/2545 Lab Status: Final result [...] Clostridioides difficile Toxin - Stool, Per Rectum [[id number]] (Abnormal) Collected: 06/26/2545 Lab Status: Final result Specimen: Stool from Per Rectum Updated: 06/26/25 1368 Narrative: The following orders were created for panel order Clostridioides difficile Toxin - Stool, Per Rectum. Procedure Abnormality Status --------- ------ Clostridioides difficile...[[id number]] Abnormal Final result Please view results for these tests on the individual orders. Clostridioides difficile Toxin, PCR - Stool, Per Rectum [[id number]] (Abnormal) Collected: 06/26/25 0046 Lab Status: Final [...] [I73.9] Yes ??? 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 [...] Plan to follow up outpatient for senior care bladder management Norovirus GI PCR panel with [...] to Resuscitate); Full Support Ordered at: 06/25/25 1050 Code Status (Patient has no pulse and is not breathing): CPR (Attempt to Resuscitate) Medical Interventions (Patient has pulse or is breathing): Full Support Level Of Support Discussed With: Patient Margaret Massey APRN 07/07/25 * Duglas Andres MD - 07/07/2025 6:52 AM EDT Trung Pool 1955 [id number] Date of Consult: 07/07/2025 Evaluating Physician: Duglas [...] excoriation/crusted areas at the toes, hospitalized at [facility] June 04 untilSe2022 and discharged with oral antibiotics for left lower extremity cellulitis; he alsohas nonhealing wounds at his buttocks 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 Admitted to [facility] June 13 2023 diagnosis of sepsis per admission notes, left lower extremity cellulitis with pressure injury at buttocks. 06/15/24 Dr Colón saw and recommended amputation; patient refused ; see his note for detail 06/17/23 Dr buenrostro discussed potential options for heel debridement with patient; MRI no osteomyelitis per radiology; taken to OR PROCEDURE: Left 18285: Debridement of skin and subcutaneous tissue 90246: wound vacuum-assisted closure, wound measuring 2.5 cm [...] 07/25/[address] Buenrostro PROCEDURE: Left 90654: Debridement of skin and subcutaneous tissue 42145: Wound vacuum-assisted closure culture data with MRSA/aneta. [...] possible intervention 01/28/24 Dr. 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 Faust in [place] and has seen Dr Oneal (ID in [place]); he is not a good historian with respect to detail. Reports having had some further surgery to the left foot although he is unable to clarify specific date/procedure. Culture at [facility] August 07, 2024 from left foot wound with ESBL Klebsiella pneumoniae and pseudomonas aeruginosa (microbiology lab there reports the Pseudomonas is sensitive to Merrem). He reports his outpatient practitioners had recommended admission to the hospital for IV antibiotics but patient had refused at that time. He also reports that he was in the emergency room at [facility] mid August, no cultures done at that time. Patient reports practitioners at [facility] had recommended higher level amputation but patient has continued to refuse that. He was readmitted to [facility] on August 31, 2024 with worsening odor/drainage andredness/pain to the left lower extremity in recent days/weeks. He reports having been taking outpatient Levaquin; prior history MRSA/PSA and ESBL organisms 09/04/24 Dr Marcano. Procedure/CPT?? Codes: RIGHT AFTER SCHOOL TEACHER access - ultrasound guided Aortogram with LEFT lower extremity run-off LEFT PT angioplasty (9x326on Nanocross) LEFT plantar angioplasty ([id number] Nanocross, 2.4r680zp UltraverseRx) LEFT AT angioplasty (6x612nq Nanocross, 2.4b271ve UltraverseRx) LEFT DP angioplasty (6c513un Nanocross, 2.8p720hf UltraverseRx) RIGHT AFTER SCHOOL TEACHER closure (Angioseal) 09/07/24 Dr Marcano Procedure/CPT?? Codes: RIGHT AFTER SCHOOL TEACHER access - ultrasound guided Aortogram with LEFT lower extremity run-off LEFT Pr AVF embolization RIGHT AFTER SCHOOL TEACHER closure 09/09/24 moved to ICU overnight with [...] femoral artery and left popliteal artery 6 [place] Angio-Seal closure of right common femoral arteriotomy [...] LEFT; Surgeon: Cecil Buenrostro Jr., MD; Location: [facility]; Service: Orthopedics; Laterality: Left; ANTERIOR CERVICAL DISCECTOMY W/ FUSION Bilateral 07/17/2020 Procedure: Cervical discectomy anterior with fusion C3-4; Surgeon: Tyree Tan MD; Location: [facility]; Service: Neurosurgery; Laterality: Bilateral; AORTOGRAM N/A 01/26/2024 Procedure: ABDOMINAL AORTIC ANGIOGRAM, LLE ANGIOGRAM, LEFT ANTERIOR TIBIAL ATHERECTOMY, LEFT ANTERIOR TIBIAL ANGIOPLASTY; Surgeon: Archie Olvera MD; Location: [facility]; Service: Vascular; Laterality: N/A; CONTRAST: 50 ML, FT: 2 MIN 54 SEC, DOSE: 66 MGY. AORTOGRAM Left 07/03/2025 Procedure: ARTERIOGRAM LOWER EXTREMITY; Surgeon: Vaughn Hollingsworth DO; Location: [facility]; Service: Vascular; Laterality: Left; FT-6MINS 24SEC 140 MGY CONTRAST -15ML BACK SURGERY FOR DISC HERNIATION CARDIAC CATHETERIZATION CARDIAC CATHETERIZATION N/A 09/04/2024 Procedure: Peripheral angiography - Left lower extremity angio - Right femoral access; Surgeon: Jared Marcano MD; Location: [facility]; Service: Peripheral Vascular; Laterality: N/A; CORONARY ANGIOPLASTY WITH STENT PLACEMENT stent x 1 INCISION AND DRAINAGE FOOT Left 06/17/2023 Procedure: LEFT FOOT DEBRIDEMENT WOUND VACUUM ASSISTED CLOSURE; Surgeon: Cecil Buenrostro Jr., MD;Location: [facility]; Service: Orthopedics; Laterality: Left; INCISION AND DRAINAGE LEG Left 07/25/2023 Procedure: INCISION AND DRAINAGE HEEL, WOUND VAC; Surgeon: Cecil Buenrostro Jr., MD; Location: [facility]; Service: Orthopedics; Laterality: Left; INCISION AND DRAINAGE LEG Left 07/03/2025 Procedure: DEBRIDEMENT WOUND, PLACEMENT OF WOUND VAC; Surgeon: Vaughn Hollingsworth DO; Location: [facility]; Service: Vascular; Laterality: Left; INTERVENTIONAL RADIOLOGY PROCEDURE N/A 05/02/2019 Procedure: IVC FILTER PLACEMENT; Surgeon: Pedro Zapien MD; Location: [facility]; Service: Interventional Radiology INTERVENTIONAL RADIOLOGY PROCEDURE Left 09/07/2024 Procedure: LEFT peroneal arteriovenous fistula embolization - Right femoral access; Surgeon: Jared Marcano MD; Location: [facility]; Service: Cardiovascular; Laterality: Left; Please coordinate with Gautam Patel ([facility]) [phone] who will bring coils LUMBAR DISCECTOMY N/A 05/03/2019 Procedure: THORACIC LAMINECTOMY T11-12; Surgeon: Tyree Tan MD; Location: [facility]; Service: Neurosurgery Pediatric History Patient Parents [...] mL 0.9% NS IVPB ([facility]) Ordering Provider: Omsany Mccann RPH 2,500 mg over 150 Minutes [...] MBP (CD) Status: Discontinued Ordering Provider: Amanda Bermudze MD 4.5 g over 4 Hours Intravenous [...] sensitive to Merrem per microbiology lab at [facility]. 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 S: Medical record reviewed. Follow-up visit for GOC and symptom management. Events noted. Patient discussing options and considering hospice services as does not want to go to [facility] for ongoing IV antibiotics. 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 [facility] Medicine Services PROGRESS NOTE Patient Name: Trung [...] Urine Culture - Urine, Indwelling Urethral Catheter [[id number]] (Abnormal) (Susceptibility) Collected: 06/25/252000 Lab Status: Final [...] Resistant Blood Culture - Blood, Hand, Right [[id number]] (Abnormal) (Susceptibility) Collected: 06/25/252029 Lab Status: Edited [...] report. Wound Culture - Swab, Foot, Left [[id number]] (Abnormal) (Susceptibility) Collected: 06/25/251817 Lab Status: Final [...] Culture ID, PCR - Blood, Hand, Right [[id number]] (Abnormal) Collected: 06/25/252029 Lab Status: Final result Specimen: Blood from Hand, Right Updated: 06/26/252101 BCID, PCR Enterococcus faecium. Zee/B (vancomycin resistance gene) not detected. Identification byBCID2 PCR. BOTTLE TYPE Anaerobic Bottle Narrative: Infectious disease consultation is highly recommended to rule out distant foci of infection. MRSA Screen, PCR (Inpatient) - Swab, Nares [[id number]] (Abnormal) Collected: 06/26/2545 Lab Status: Final result Specimen: Swab from Nares Updated: 06/26/25 0850 MRSA PCR Positive Narrative: The negative predictive value of this diagnostic test is high and should only be used to consider de-escalating anti-MRSA therapy. A positive result may indicate colonization with MRSA and must be correlated clinically. Gastrointestinal Panel, PCR - Stool, Per Rectum [[id number]] (Abnormal) Collected: 06/26/2545 Lab Status: Final result [...] Clostridioides difficile Toxin - Stool, Per Rectum [[id number]] (Abnormal) Collected: 06/26/2545 Lab Status: Final result Specimen: Stool from Per Rectum Updated: 06/26/25 0755 Narrative: The following orders were created for panel order Clostridioides difficile Toxin - Stool, Per Rectum. Procedure Abnormality Status --------- ------ Clostridioides difficile...[[id number]] Abnormal Final result Please view results for these tests on the individual orders. Clostridioides difficile Toxin, PCR - Stool, Per Rectum [[id number]] (Abnormal) Collected: 06/26/25 0046 Lab Status: Final [...] [I73.9] Yes ??? 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 [...] Plan to follow up outpatient for senior care bladder management Norovirus GI PCR panel with [...] minutes Time spent includes time reviewing chart, [id number] time, counseling patient/family/caregiver, ordering medications/tests/procedures, communicating with other health emergency care tech, documenting clinical information in the electronic health record, and coordination of care. AM-PAC 6 Clicks Score (PT): 10 (07/05/25 1623) CODE STATUS: Code Status and Medical Interventions: CPR (Attempt to Resuscitate); Full Support Ordered at: 06/25/25 9310 Code Status (Patient has no pulse and is not breathing): CPR (Attempt to Resuscitate) Medical Interventions (Patient has pulse or is breathing): Full Support Level Of Support Discussed With: Patient Gigi Alcantara MD 07/06/25 * Duglas Andres MD - 07/06/2025 7:05 AM EDT Trung Pool 1955 [id number] Date of Consult: 07/06/2025 Evaluating Physician: Duglas [...] excoriation/crusted areas at the toes, hospitalized at [facility] June 04 untilSept2022 and discharged with oral antibiotics for left lower extremity cellulitis; he alsohas nonhealing wounds at his buttocks 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 Admitted to [facility] June 13 2023 diagnosis of sepsis per admission notes, left lower extremity cellulitis with pressure injury at buttocks. 06/15/24 Dr Colón saw and recommended amputation; patient refused ; see his note for detail 06/17/23 Dr buenrostro discussed potential options for heel debridement with patient; MRI no osteomyelitis per radiology; taken to OR PROCEDURE: Left 76930: Debridement of skin and subcutaneous tissue 96266: wound vacuum-assisted closure, wound measuring 2.5 cm [...] 07/25/[address] Buenrostro PROCEDURE: Left 33929: Debridement of skin and subcutaneous tissue 09128: Wound vacuum-assisted closure culture data with MRSA/aneta. [...] possible intervention 01/28/24 Dr. 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 Faust in [place] and has seen Dr Oneal (ID in [place]); he is not a good historian with respect to detail. Reports having had some further surgery to the left foot although he is unable to clarify specific date/procedure. Culture at [facility] August 07, 2024 from left foot wound with ESBL Klebsiella pneumoniae and pseudomonas aeruginosa (microbiology lab there reports the Pseudomonas is sensitive to Merrem). He reports his outpatient practitioners had recommended admission to the hospital for IV antibiotics but patient had refused at that time. He also reports that he was in the emergency room at [facility] mid August, no cultures done at that time. Patient reports practitioners at [facility] had recommended higher level amputation but patient has continued to refuse that. He was readmitted to [facility] on August 31, 2024 with worsening odor/drainage andredness/pain to the left lower extremity in recent days/weeks. He reports having been taking outpatient Levaquin; prior history MRSA/PSA and ESBL organisms 09/04/24 Dr Marcano. Procedure/CPT?? 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 Codes: RIGHT AFTER SCHOOL TEACHER access - ultrasound guided Aortogram with LEFT lower extremity run-off LEFT Pr AVF embolization RIGHT AFTER SCHOOL TEACHER closure 09/09/24 moved to ICU overnight with [...] femoral artery and left popliteal artery 6 [place] Angio-Seal closure of right common femoral arteriotomy [...] Cecil Buenrostro Jr., MD; Location: [facility]; Service: Orthopedics; Laterality: Left; ANTERIOR CERVICAL DISCECTOMY W/ FUSION Bilateral 07/17/2020 Procedure: Cervical discectomy anterior with fusion C3-4; Surgeon: Tyree Tan MD; Location:[facility]; Service: Neurosurgery; Laterality: Bilateral; AORTOGRAM N/A 01/26/2024 Procedure: ABDOMINAL AORTIC ANGIOGRAM, LLE ANGIOGRAM, LEFT ANTERIOR TIBIAL ATHERECTOMY, LEFT ANTERIOR TIBIAL ANGIOPLASTY; Surgeon: Archie Olvera MD; Location: [facility]; Service: Vascular; Laterality: N/A; CONTRAST: 50 ML, FT: 2 MIN 54 SEC, DOSE: 66 MGY. AORTOGRAM Left 07/03/2025 Procedure: ARTERIOGRAM LOWER EXTREMITY; Surgeon: Vaughn Hollingsworth DO; Location: [facility]; Service: Vascular; Laterality: Left; FT-6MINS 24SEC 140 MGY CONTRAST -15ML BACK SURGERY FOR DISC HERNIATION CARDIAC CATHETERIZATION CARDIAC CATHETERIZATION N/A 09/04/2024 Procedure: Peripheral angiography - Left lower extremity angio - Right femoral access; Surgeon: Jared Marcano MD; Location: [facility]; Service: Peripheral Vascular; Laterality: N/A; CORONARY ANGIOPLASTY WITH STENT PLACEMENT stent x 1 INCISION AND DRAINAGE FOOT Left 06/17/2023 Procedure: LEFT FOOT DEBRIDEMENT WOUND VACUUM ASSISTED CLOSURE; Surgeon: Cecil Buenrostro Jr., MD;Location: [facility]; Service: Orthopedics; Laterality: Left; INCISION AND DRAINAGE LEG Left 07/25/2023 Procedure: INCISION AND DRAINAGE HEEL, WOUND VAC; Surgeon: Cecil Buenrostro Jr., MD; Location: [facility]; Service: Orthopedics; Laterality: Left; INCISION AND DRAINAGE LEG Left 07/03/2025 Procedure: DEBRIDEMENT WOUND, PLACEMENT OF WOUND VAC; Surgeon: Vaughn Hollingsworth DO; Location: [facility]; Service: Vascular; Laterality: Left; INTERVENTIONAL RADIOLOGY PROCEDURE N/A 05/02/2019 Procedure: IVC FILTER PLACEMENT; Surgeon: Pedro Zapien MD; Location: [facility]; Service: Interventional Radiology INTERVENTIONAL RADIOLOGY PROCEDURE Left 09/07/2024 Procedure: LEFT peroneal arteriovenous fistula embolization - Right femoral access; Surgeon: Jared Marcano MD; Location: [facility]; Service: Cardiovascular; Laterality: Left; Please coordinate with Gautam Patel ([facility]) [phone] who will bring coils LUMBAR DISCECTOMY N/A 05/03/2019 Procedure: THORACIC LAMINECTOMY T11-12; Surgeon: Tyree Tan MD; Location: [facility]; Service: Neurosurgery Pediatric History Patient Parents Not [...] VTB Status: Discontinued Ordering Provider: Osmany Mccann [facility] 1,250 mg 200 mL/hr over 75 Minutes [...] Value Units Date/Time CT Head Without Contrast [[id number]] Collected: 07/03/252109 Updated: 07/03/252113 Narrative: CT HEAD [...] MD 07/03/2025 9:11 PM EDT Workstation ID: [id number] [facility] Procedure [[id number]] Resulted: 07/03/251543 Updated: 07/03/251543 Impression: --acute left lower leg/foot cellulitis and wound infection, prior culture July 2024 with ESBL Klebsiella pneumoniae and pseudomonas aeruginosa, pseudomonas was sensitive to Merrem per microbiology lab at [facility]. 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 [facility] Medicine Services PROGRESS NOTE Patient Name: Trung [...] 80.0 75.5* Lab 07/05/25 0434 07/04/25 0615 07/04/2534607/02/2535807/01/25 0329 06/30/25428 SODIUM 134* -- 135* 136 135* 138 [...] Blood Leuk Est Nitrite Protein CREAT Urine [facility] 06/25/252000 Yellow Turbid Large (3+) Large (3+) Positive Trace Brief Urine Lab Results (Last result in the past 365 days) Color Clarity Blood Leuk Est Nitrite Protein CREAT Urine HCG 06/25/252000 Yellow Turbid Large (3+) Large (3+) Positive Trace Brief Urine Lab Results (Last result in the past 365 days) Color Clarity Blood Leuk Est Nitrite Protein CREAT Urine [facility] 06/25/252000 Yellow Turbid Large (3+) Large (3+) Positive Trace Microbiology Results Abnormal Procedure Component Value - Date/Time Urine Culture - Urine, Indwelling Urethral Catheter [[id number]] (Abnormal) (Susceptibility) Collected: 06/25/252000 Lab Status: Final [...] Resistant Blood Culture - Blood, Hand, Right [[id number]] (Abnormal) (Susceptibility) Collected: 06/25/25 2030 Lab Status: [...] report. Wound Culture - Swab, Foot, Left [[id number]] (Abnormal) (Susceptibility) Collected: 06/25/25 1818 Lab Status: [...] Culture ID, PCR - Blood, Hand, Right [[id number]] (Abnormal) Collected: 06/25/252029 Lab Status: Final result Specimen: Blood from Hand, Right Updated: 06/26/252101 BCID, PCR Enterococcus faecium. Zee/B (vancomycin resistance gene) not detected. Identification by BCID2 PCR. BOTTLE TYPE Anaerobic Bottle Narrative: Infectious disease consultation is highly recommended to rule out distant foci of infection. MRSA Screen, PCR (Inpatient) - Swab, Nares [[id number]] (Abnormal) Collected: 06/26/2545 Lab Status: Final result Specimen: Swab from Nares Updated: 06/26/25 0850 MRSA PCR Positive Narrative: The negative predictive value of this diagnostic test is high and should only be used to consider de-escalating anti-MRSA therapy. A positive result may indicate colonization with MRSA and must be correlated clinically. Gastrointestinal Panel, PCR - Stool, Per Rectum [[id number]] (Abnormal) Collected: 06/26/2545 Lab Status: Final result [...] Clostridioides difficile Toxin - Stool, Per Rectum [[id number]] (Abnormal) Collected: 06/26/2545 Lab Status: Final result Specimen: Stool from Per Rectum Updated: 06/26/25 8835 Narrative: The following orders were created for panel order Clostridioides difficile Toxin - Stool, Per Rectum. Procedure Abnormality Status --------- ------ Clostridioides difficile...[[id number]] Abnormal Final result Please view results for these tests on the individual orders. Clostridioides difficile Toxin, PCR - Stool, Per Rectum [[id number]] (Abnormal) Collected: 06/26/25 0046 Lab Status: Final result Specimen: Stool from Per Rectum Updated: 06/26/25 0755 Toxigenic C. difficile by PCR Detected Narrative: DNA from a toxigenic strain of C.difficile has been detected. Microbiology Results Abnormal Procedure Component Value - Date/Time Urine Culture - Urine, Indwelling Urethral Catheter [[id number]] (Abnormal) (Susceptibility) Collected: 06/25/252000 Lab Status: Final [...] Resistant Blood Culture - Blood, Hand, Right [[id number]] (Abnormal) (Susceptibility) Collected: 06/25/252029 Lab Status: Edited [...] report. Wound Culture - Swab, Foot, Left [[id number]] (Abnormal) (Susceptibility) Collected: 06/25/25 1818 Lab Status: [...] Culture ID, PCR - Blood, Hand, Right [[id number]] (Abnormal) Collected: 06/25/25 2030 Lab Status: Final result Specimen: Blood from Hand, Right Updated: 06/26/252101 BCID, PCR Enterococcus faecium. Zee/B (vancomycin resistance gene) not detected. Identification by BCID2 PCR. BOTTLE TYPE Anaerobic Bottle Narrative: Infectious disease consultation is highly recommended to rule out distant foci of infection. MRSA Screen, PCR (Inpatient) - Swab, Nares [[id number]] (Abnormal) Collected: 06/26/25 0046 Lab Status: Final result Specimen: Swab from Nares Updated: 06/26/25 0850 MRSA PCR Positive Narrative: The negative predictive value of this diagnostic test is high and should only be used to consider de-escalating anti-MRSA therapy. A positive result may indicate colonization with MRSA and must be correlated clinically. Gastrointestinal Panel, PCR - Stool, Per Rectum [[id number]] (Abnormal) Collected: 06/26/2545 Lab Status: Final result [...] Clostridioides difficile Toxin - Stool, Per Rectum [[id number]] (Abnormal) Collected: 06/26/2545 Lab Status: Final result Specimen: Stool from Per Rectum Updated: 06/26/25754 Narrative: The following orders were created for panel order Clostridioides difficile Toxin - Stool, Per Rectum. Procedure Abnormality Status --------- ------ Clostridioides difficile...[[id number]] Abnormal Final result Please view results for these tests on the individual orders. Clostridioides difficile Toxin, PCR - Stool, Per Rectum [[id number]] (Abnormal) Collected: 06/26/2545 Lab Status: Final result Specimen: Stool from Per Rectum Updated: 06/26/25754 Toxigenic C. difficile by PCR Detected Narrative: DNA from a toxigenic strain of C.difficile has been detected. Microbiology Results Abnormal Procedure Component Value - Date/Time Urine Culture - Urine, Indwelling Urethral Catheter [[id number]] (Abnormal) (Susceptibility) Collected: 06/25/252000 Lab Status: Final [...] Resistant Blood Culture - Blood, Hand, Right [[id number]] (Abnormal) (Susceptibility) Collected: 06/25/252029 Lab Status: Edited [...] report. Wound Culture - Swab, Foot, Left [[id number]] (Abnormal) (Susceptibility) Collected: 06/25/25 181 Lab Status: [...] Culture ID, PCR - Blood, Hand, Right [[id number]] (Abnormal) Collected: 06/25/252029 Lab Status: Final result Specimen: Blood from Hand, Right Updated: 06/26/252101 BCID, PCR Enterococcus faecium. Zee/B (vancomycin resistance gene) not detected. Identification by BCID2 PCR. BOTTLE TYPE Anaerobic Bottle Narrative: Infectious disease consultation is highly recommended to rule out distant foci of infection. MRSA Screen, PCR (Inpatient) - Swab, Nares [[id number]] (Abnormal) Collected: 06/26/2545 Lab Status: Final result Specimen: Swab from Nares Updated: 06/26/2550 MRSA PCR Positive Narrative: The negative predictive value of this diagnostic test is high and should only be used to consider de-escalating anti-MRSA therapy. A positive result may indicate colonization with MRSA and must be correlated clinically. Gastrointestinal Panel, PCR - Stool, Per Rectum [[id number]] (Abnormal) Collected: 06/26/2545 Lab Status: Final result [...] Clostridioides difficile Toxin - Stool, Per Rectum [[id number]] (Abnormal) Collected: 06/26/2545 Lab Status: Final result Specimen: Stool from Per Rectum Updated: 06/26/25754 Narrative: The following orders were created for panel order Clostridioides difficile Toxin - Stool, Per Rectum. Procedure Abnormality Status --------- ------ Clostridioides difficile...[[id number]] Abnormal Final result Please view results for these tests on the individual orders. Clostridioides difficile Toxin, PCR - Stool, Per Rectum [[id number]] (Abnormal) Collected: 06/26/2545 Lab Status: Final result Specimen: Stool from Per Rectum Updated: 06/26/25754 Toxigenic C. difficile by PCR Detected Narrative: DNA from a toxigenic strain of C.difficile has been detected. Microbiology Results Abnormal Procedure Component Value - Date/Time Urine Culture - Urine, Indwelling Urethral Catheter [[id number]] (Abnormal) (Susceptibility) Collected: 06/25/252000 Lab Status: Final [...] Resistant Blood Culture - Blood, Hand, Right [[id number]] (Abnormal) (Susceptibility) Collected: 06/25/252029 Lab Status: Edited [...] report. Wound Culture - Swab, Foot, Left [[id number]] (Abnormal) (Susceptibility) Collected: 06/25/251817 Lab Status: Final [...] Culture ID, PCR - Blood, Hand, Right [[id number]] (Abnormal) Collected: 06/25/252029 Lab Status: Final result Specimen: Blood from Hand, Right Updated: 06/26/252101 BCID, PCR Enterococcus faecium. Zee/B (vancomycin resistance gene) not detected. Identification by BCID2 PCR. BOTTLE TYPE Anaerobic Bottle Narrative: Infectious disease consultation is highly recommended to rule out distant foci of infection. MRSA Screen, PCR (Inpatient) - Swab, Nares [[id number]] (Abnormal) Collected: 06/26/2545 Lab Status: Final result Specimen: Swab from Nares Updated: 06/26/25 0850 MRSA PCR Positive Narrative: The negative predictive value of this diagnostic test is high and should only be used to consider de-escalating anti-MRSA therapy. A positive result may indicate colonization with MRSA and must be correlated clinically. Gastrointestinal Panel, PCR - Stool, Per Rectum [[id number]] (Abnormal) Collected: 06/26/2545 Lab Status: Final result [...] Clostridioides difficile Toxin - Stool, Per Rectum [[id number]] (Abnormal) Collected: 06/26/2545 Lab Status: Final result Specimen: Stool from Per Rectum Updated: 06/26/25 7995 Narrative: The following orders were created for panel order Clostridioides difficile Toxin - Stool, Per Rectum. Procedure Abnormality Status --------- ------ Clostridioides difficile...[[id number]] Abnormal Final result Please view results for these tests on the individual orders. Clostridioides difficile Toxin, PCR - Stool, Per Rectum [[id number]] (Abnormal) Collected: 06/26/25 0046 Lab Status: Final result Specimen: Stool from Per Rectum Updated: 06/26/25 0755 Toxigenic C. difficile by PCR Detected Narrative: DNA from a toxigenic strain of C.difficile has been detected. Microbiology Results Abnormal Procedure Component Value - Date/Time Urine Culture - Urine, Indwelling Urethral Catheter [[id number]] (Abnormal) (Susceptibility) Collected: 06/25/252000 Lab Status: Final [...] Resistant Blood Culture - Blood, Hand, Right [[id number]] (Abnormal) (Susceptibility) Collected: 06/25/252029 Lab Status: Edited [...] report. Wound Culture - Swab, Foot, Left [[id number]] (Abnormal) (Susceptibility) Collected: 06/25/25 1818 Lab Status: [...] Culture ID, PCR - Blood, Hand, Right [[id number]] (Abnormal) Collected: 06/25/25 2030 Lab Status: Final result Specimen: Blood from Hand, Right Updated: 06/26/252101 BCID, PCR Enterococcus faecium. Zee/B (vancomycin resistance gene) not detected. Identification by BCID2 PCR. BOTTLE TYPE Anaerobic Bottle Narrative: Infectious disease consultation is highly recommended to rule out distant foci of infection. MRSA Screen, PCR (Inpatient) - Swab, Nares [[id number]] (Abnormal) Collected: 06/26/25 0046 Lab Status: Final result Specimen: Swab from Nares Updated: 06/26/25 0850 MRSA PCR Positive Narrative: The negative predictive value of this diagnostic test is high and should only be used to consider de-escalating anti-MRSA therapy. A positive result may indicate colonization with MRSA and must be correlated clinically. Gastrointestinal Panel, PCR - Stool, Per Rectum [[id number]] (Abnormal) Collected: 06/26/2545 Lab Status: Final result [...] Clostridioides difficile Toxin - Stool, Per Rectum [[id number]] (Abnormal) Collected: 06/26/2545 Lab Status: Final result Specimen: Stool from Per Rectum Updated: 06/26/25754 Narrative: The following orders were created for panel order Clostridioides difficile Toxin - Stool, Per Rectum. Procedure Abnormality Status --------- ------ Clostridioides difficile...[[id number]] Abnormal Final result Please view results for these tests on the individual orders. Clostridioides difficile Toxin, PCR - Stool, Per Rectum [[id number]] (Abnormal) Collected: 06/26/2545 Lab Status: Final result [...] nonepileptic This report is transcribed using the [employer] system. CT Head Without Contrast Result Date: [...] MD 07/03/2025 9:11 PM EDT Workstation ID: [id number] Results for orders placed during the hospital [...] [I73.9] Yes ??? 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 [...] finasteride. 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 Total time spent: Time Spent: Time Spent: 40 minutes Time spent includes time reviewing chart, hxmk-fw-liya time, counseling patient/family/caregiver, ordering medications/tests/procedures, communicating with other health emergency care tech, documenting clinical information in the electronic health [...] MD - 07/05/2025 7:41 AM EDT Trung Michelle Pool 1955 [id number] Date of Consult: 07/05/2025 Evaluating Physician: Duglas [...] excoriation/crusted areas at the toes, hospitalized at [facility] June 04 untilSe2022 and discharged with oral antibiotics for left lower extremity cellulitis; he alsohas nonhealing wounds at his buttocks 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 Admitted to [facility] June 13 2023 diagnosis of sepsis per admission notes, left lower extremity cellulitis with pressure injury at buttocks. 06/15/24 Dr Colón saw and recommended amputation; patient refused ; see his note for detail 06/17/23 Dr buenrostro discussed potential options for heel debridement with patient; MRI no osteomyelitis per radiology; taken to OR PROCEDURE: Left 82598: Debridement of skin and subcutaneous tissue 89924: wound vacuum-assisted closure, wound measuring 2.5 cm [...] 07/25/[address] Buenrostro PROCEDURE: Left 19976: Debridement of skin and subcutaneous tissue 30855: Wound vacuum-assisted closure culture data with MRSA/aneta. [...] possible intervention 01/28/24 Dr. 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 Faust in [place] and has seen Dr Oneal (ID in [place]); he is not a good historian with respect to detail. Reports having had some further surgery to the left foot although he is unable to clarify specific date/procedure. Culture at [facility] August 07, 2024 from left foot wound with ESBL Klebsiella pneumoniae and pseudomonas aeruginosa (microbiology lab there reports the Pseudomonas is sensitive to Merrem). He reports his outpatient practitioners had recommended admission to the hospital for IV antibiotics but patient had refused at that time. He also reports that he was in the emergency room at [facility] mid August, no cultures done at that time. Patient reports practitioners at [facility] had recommended higher level amputation but patient has continued to refuse that. He was readmitted to [facility] on August 31, 2024 with worsening odor/drainage andredness/pain to the left lower extremity in recent days/weeks. He reports having been taking outpatient Levaquin; prior history MRSA/PSA and ESBL organisms 09/04/24 Dr Marcano. Procedure/CPT?? Codes: RIGHT AFTER SCHOOL TEACHER access - ultrasound guided Aortogram with LEFT lower extremity run-off LEFT PT angioplasty (7i460fy Nanocross) LEFT plantar angioplasty (5z143qh Nanocross, 2.9m957ov UltraverseRx) LEFT AT angioplasty (7z427ee Nanocross, 2.1z813ng UltraverseRx) LEFT DP angioplasty (5q284ta Nanocross, 2.9d854qw UltraverseRx) RIGHT AFTER SCHOOL TEACHER closure (Angioseal) 09/07/24 Dr Macrano Procedure/CPT?? Codes: RIGHT AFTER SCHOOL TEACHER access - ultrasound guided Aortogram with LEFT lower extremity run-off LEFT Pr AVF embolization RIGHT AFTER SCHOOL TEACHER closure 09/09/24 moved to ICU overnight with [...] femoral artery and left popliteal artery 6 [place] Angio-Seal closure of right common femoral arteriotomy [...] LEFT; Surgeon: Cecil Buenrostro Jr., MD; Location: [facility]; Service: Orthopedics; Laterality: Left; ANTERIOR CERVICAL DISCECTOMY W/ FUSION Bilateral 07/17/2020 Procedure: Cervical discectomy anterior with fusion C3-4; Surgeon: Tyree Tan MD; Location: [facility]; Service: Neurosurgery; Laterality: Bilateral; AORTOGRAM N/A 01/26/2024 Procedure: ABDOMINAL AORTIC ANGIOGRAM, LLE ANGIOGRAM, LEFT ANTERIOR TIBIAL ATHERECTOMY, LEFT ANTERIOR TIBIAL ANGIOPLASTY; Surgeon: Archie Olvera MD; Location: [facility]; Service: Vascular; Laterality: N/A; CONTRAST: 50 ML, FT: 2 MIN 54 SEC, DOSE: 66 MGY. AORTOGRAM Left 07/03/2025 Procedure: ARTERIOGRAM LOWER EXTREMITY; Surgeon: Vaughn Hollingsworth DO; Location: [facility]; Service: Vascular; Laterality: Left; FT-6MINS [...] WOUND VAC; Surgeon: Vaughn Hollingsworth DO; Location: [facility]; Service: Vascular; Laterality: Left; INTERVENTIONAL RADIOLOGY PROCEDURE N/A 05/02/2019 Procedure: IVC FILTER PLACEMENT; Surgeon: Pedro Zapien MD; Location: [facility]; Service: Interventional Radiology INTERVENTIONAL RADIOLOGY PROCEDURE Left 09/07/2024 Procedure: LEFT peroneal arteriovenous fistula embolization - Right femoral access; Surgeon: Jared Marcano MD; Location: [facility]; Service: Cardiovascular; Laterality: Left; Please coordinate with Gautam Patel ([facility] [phone] who will bring coils LUMBAR DISCECTOMY N/A [...] Vaughn Hollingsworth DO Placed in Followed by [facility] 125 mg Oral Weekly 08/01/25 [...] ([facility]) Status: Discontinued Ordering Provider: Osmany Mccann, [facility] 2,250 mg over 135 Minutes Intravenous Once [...] mL MBP Ordering Provider: Ally Jeffers V CONSTRUCTION COST ESTIMATOR 1,000 mg over 30 Minutes Intravenous Once [...] Value Units Date/Time CT Head Without Contrast [[id number]] Collected: 07/03/252109 Updated: 07/03/252113 Narrative: CT HEAD [...] MD 07/03/2025 9:11 PM EDT Workstation ID: [id number] XR [place] Procedure [[id number]] Resulted: 07/03/251543 Updated: 07/03/251543 Impression: --acute left lower leg/foot cellulitis and wound infection, prior culture July 2024 with ESBL Klebsiella pneumoniae and pseudomonas aeruginosa, pseudomonas was sensitive to Merrem per microbiology lab at [facility]. 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 ; readmission May 2025 and [...] 400-400-40 MG/5ML suspension 15 mL 15 mL [id number] PRN Amanda Bermudez MD [Held by provider] [...] mg 10 mg Rectal Daily PRN Amanda Bermduez MD Calcium Replacement - Follow Nurse / BPA Driven Protocol Not Applicable PRN Amanda Bermudez MD carvedilol (COREG) tablet 3.125 mg 3.125 mg Oral BID With Meals Amanda Bermudez MD 3.125 mg at 07/01/25 1712 clopidogrel (PLAVIX) tablet 75 mg 75 mg Oral Daily Amanda Bermudze MD 75 mg at 07/01/25 0830 famotidine [...] 10 mL Intravenous PRN Ally Jeffers V, CONSTRUCTION COST ESTIMATOR sodium chloride 0.9 % flush 10 mL [...] IVPB-VTB 1,000 mg Intravenous Q12H Osmany Mccann, [facility] 250 mL/hr at 07/01/252142 1,000 mg at [...] date: 06/25/2025 Reason for Encounter: Follow-up/Progress Note [facility] Clinical Nutrition Assessment Subjective Subjective [...] LEFT; Surgeon: Cecil Buenrostro Jr., MD; Location: [facility]; Service: Orthopedics; Laterality: Left; ANTERIOR CERVICAL DISCECTOMY W/ FUSION Bilateral 07/17/2020 Procedure: Cervical discectomy anterior with fusion C3-4; Surgeon: Tyree Tan MD; Location:[facility]; Service: Neurosurgery; Laterality: Bilateral; AORTOGRAM N/A 01/26/2024 Procedure: ABDOMINAL AORTIC ANGIOGRAM, LLE ANGIOGRAM, LEFT ANTERIOR TIBIAL ATHERECTOMY, LEFT ANTERIOR TIBIAL ANGIOPLASTY; Surgeon: Archie Olvera MD; Location: [facility]; Service: Vascular; Laterality: N/A; CONTRAST: 50 ML, FT: 2 MIN 54 SEC, DOSE: 66 MGY. AORTOGRAM Left 07/03/2025 Procedure: ARTERIOGRAM LOWER EXTREMITY; Surgeon: Vaughn Hollingsworth DO; Location: [facility]; Service: Vascular; Laterality: Left; FT-6MINS 24SEC 140 MGY CONTRAST -15ML BACK SURGERY FOR DISC HERNIATION CARDIAC CATHETERIZATION CARDIAC CATHETERIZATION N/A 09/04/2024 Procedure: Peripheral angiography - Left lower extremity angio - Right femoral access; Surgeon: Jared Marcano MD; Location: [facility]; Service: Peripheral Vascular; Laterality: N/A; CORONARY ANGIOPLASTY WITH STENT PLACEMENT stent x 1 INCISION AND DRAINAGE FOOT Left 06/17/2023 Procedure: LEFT FOOT DEBRIDEMENT WOUND VACUUM ASSISTED CLOSURE; Surgeon: Cecil Buenrostro Jr., MD;Location: [facility]; Service: Orthopedics; Laterality: Left; INCISION AND DRAINAGE LEG Left 07/25/2023 Procedure: INCISION AND DRAINAGE HEEL, WOUND VAC; Surgeon: Cecil Buenrostro Jr., MD; Location: [facility]; Service: Orthopedics; Laterality: Left; INCISION AND DRAINAGE LEG Left 07/03/2025 Procedure: DEBRIDEMENT WOUND, PLACEMENT OF WOUND VAC; Surgeon: Vaughn Hollingsworth DO; Location: [facility]; Service: Vascular; Laterality: Left; INTERVENTIONAL RADIOLOGY PROCEDURE N/A 05/02/2019 Procedure: IVC FILTER PLACEMENT; Surgeon: Pedro Zapien MD; Location: [facility]; Service: Interventional Radiology INTERVENTIONAL RADIOLOGY PROCEDURE Left 09/07/2024 Procedure: LEFT peroneal arteriovenous fistula embolization - Right femoral access; Surgeon: Jared Marcano MD; Location: [facility]; Service: Cardiovascular; Laterality: Left; Please coordinate with Gautam Patel ([facility]) [phone] who will bring coils LUMBAR DISCECTOMY N/A 05/03/2019 Procedure: THORACIC LAMINECTOMY T11-12; Surgeon: Tyree Tan MD; Location: [facility]; Service: Neurosurgery Current Problems Admission Diagnosis: Cellulitis [L03.90] Problem List: Gastroenteritis due to norovirus Primary hypertension Seizure disorder 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 PAD (peripheral artery [...] Output (last 3 days) 07/01 0701 07/02 0700 07/02 0701 07/03 0707/03 0701 07/04 0700 07/04 [...] this documentation and agree. * Lupe Albert, CONSTRUCTION COST ESTIMATOR - 07/04/2025 12:09 PM EDT Images from [...] elderly white male; resting in bed HEENT: [place] conjunctivae, MMM Lungs: Normal respiratory effort Ext: hx right BKA; left foot TMA w/ wound vac intact/functioning; motor intact; thickened flaky skin Skin: Exposed skin warm Neuro: Follows simple commands Psych: Apropriate mood, talkative Labs: Lab Results (last 24 hours) Procedure Component Value Units Date/Time POC Glucose Once [[id number]] (Normal) Collected: 07/04/25 1203 Specimen: Blood Updated: 07/04/25 1205 Glucose 86 mg/dL Comment: Serial Number: [id number]: [id number] Vancomycin, Random [[id number]] (Normal) Collected: 07/04/25346 Specimen: Blood Updated: 07/04/2548 Vancomycin Random 28.30 mcg/mL Narrative: Therapeutic Ranges for Vancomycin Vancomycin Random 5.0-40.0 mcg/mL Vancomycin Trough 5.0-20.0 mcg/mL Vancomycin Peak 20.0-40.0 mcg/mL POC Glucose Once [[id number]] (Normal) Collected: 07/04/25731 Specimen: Blood Updated: 07/04/2534 Glucose 99 mg/dL Comment: Serial Number: [id number]: [id number] Potassium [[id number]] (Abnormal) Collected: 07/04/25614 Specimen: Blood Updated: 07/04/25722 Potassium 5.9 mmol/L Basic Metabolic Panel [[id number]] (Abnormal) Collected: 07/04/25346 Specimen: Blood Updated: 07/04/25442 [...] race as a factor CBC & Differential [[id number]] (Abnormal) Collected: 07/04/25346 Specimen: Blood Updated: 07/04/25414 Narrative: The following orders were created for panel order CBC & Differential. Procedure Abnormality Status --------- ------ CBC Auto Differential[[id number]] Abnormal Final result Please view results for these tests on the individual orders. CBC Auto Differential [[id number]] (Abnormal) Collected: 07/04/257 Specimen: Blood Updated: 07/04/255 [...] nRBC 0.0 /100 WBC POC Glucose Once [[id number]] (Abnormal) Collected: 07/03/252101 Specimen: Blood Updated: 07/03/252103 Glucose 143 mg/dL Comment: Serial Number: [id number]: [id number] POC Glucose Once [[id number]] (Abnormal) Collected: 07/03/252012 Specimen: Blood Updated: 07/03/252014 Glucose 142 mg/dL Comment: Serial Number: [id number]: [id number] Blood Gas, Arterial With Co-Ox [[id number]] (Abnormal) Collected: 07/03/251899 Specimen: Arterial Blood Updated: [...] 0 Breaths/minute PIP 0 cmH2O Comment: Meter: [id number] Skates Operator: [id number] IPAP 0 EPAP 0 pH, Temp Corrected 7.362 pH Units pCO2, Temperature Corrected 41.7 mm Hg pO2, Temperature Corrected 172 mm Hg POC Glucose Once [[id number]] (Normal) Collected: 07/03/251720 Specimen: Blood Updated: 07/03/251724 Glucose 98 mg/dL Comment: Serial Number: [id number]: [id number] EEG Narrative: Reason for referral: 70 y.o.male [...] nonepileptic This report is transcribed using the [employer] dictation system. Assessment - Severe sepsis, POA - LEFT lower extremity cellulitis with wound infection - hx ESBL Klebsiella pneumoniae and pseudomonas aeruginosa - s/p Ultrasound-guided access of the right common femoral artery; Aortogram; 2 level angiogram left leg; Intravascular ultrasound interpretation of left common femoral artery, left superficial femoral artery and left popliteal artery; 6 [place] Angio-Seal closure of right common femoral arteriotomy; [...] from the original note were not included. [facility] Medicine Services PROGRESS NOTE Patient Name: Trung [...] normal. Results Reviewed: LAB RESULTS: Lab 07/04/2534607/02/2535806/30/2542806/29/25 06 WBC 8.21 7.10 5.48 7.30 HEMOGLOBIN 9.3* 9.8* 9.2* 9.0* HEMATOCRIT 31.1* 32.8* 31.6* 29.2* PLATELETS 264 296 259 289 NEUTROS ABS 5.86 -- 3.05 4.71 IMMATURE GRANS (ABS) 0.05 -- 0.02 0.03 LYMPHS ABS 1.53 -- 1.32 1.44 MONOS ABS 0.70 -- 0.64 0.64 EOS ABS 0.04 -- 0.40 0.42* MCV 77.2* 79.0 80.0 75.5* Lab 07/04/25 0615 07/04/2534607/02/2535807/01/25 0329 06/30/2542806/29/25 0624 SODIUM -- 135* 136 135* 138 [...] Urine Culture - Urine, Indwelling Urethral Catheter [[id number]] (Abnormal) (Susceptibility) Collected: 06/25/252000 Lab Status: Final [...] Resistant Blood Culture - Blood, Hand, Right [[id number]] (Abnormal) (Susceptibility) Collected: 06/25/252029 Lab Status: Edited [...] report. Wound Culture - Swab, Foot, Left [[id number]] (Abnormal) (Susceptibility) Collected: 06/25/251817 Lab Status: Final [...] Culture ID, PCR - Blood, Hand, Right [[id number]] (Abnormal) Collected: 06/25/252029 Lab Status: Final result Specimen: Blood from Hand, Right Updated: 06/26/252101 BCID, PCR Enterococcus faecium. Zee/B (vancomycin resistance gene) not detected. Identification by BCID2 PCR. BOTTLE TYPE Anaerobic Bottle Narrative: Infectious disease consultation is highly recommended to rule out distant foci of infection. MRSA Screen, PCR (Inpatient) - Swab, Nares [[id number]] (Abnormal) Collected: 06/26/2545 Lab Status: Final result Specimen: Swab from Nares Updated: 06/26/25 0850 MRSA PCR Positive Narrative: The negative predictive value of this diagnostic test is high and should only be used to consider de-escalating anti-MRSA therapy. A positive result may indicate colonization with MRSA and must be correlated clinically. Gastrointestinal Panel, PCR - Stool, Per Rectum [[id number]] (Abnormal) Collected: 06/26/2545 Lab Status: Final result [...] Clostridioides difficile Toxin - Stool, Per Rectum [[id number]] (Abnormal) Collected: 06/26/2545 Lab Status: Final result Specimen: Stool from Per Rectum Updated: 06/26/25 9115 Narrative: The following orders were created for panel order Clostridioides difficile Toxin - Stool, Per Rectum. Procedure Abnormality Status --------- ------ Clostridioides difficile...[[id number]] Abnormal Final result Please view results for these tests on the individual orders. Clostridioides difficile Toxin, PCR - Stool, Per Rectum [[id number]] (Abnormal) Collected: 06/26/2545 Lab Status: Final result [...] nonepileptic This report is transcribed using the [employer] system. CT Head Without Contrast Result Date: [...] MD 07/03/2025 9:11 PM EDT Workstation ID: [id number] Results for orders placed during the hospital [...] [I73.9] Yes ??? 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 [...] Plan to follow up outpatient for senior care bladder management Norovirus GI PCR panel with [...] minutes Time spent includes time reviewing chart, [id number] time, counseling patient/family/caregiver, ordering medications/tests/procedures, communicating with other health emergency care tech, documenting clinical information in the electronic health record, and coordination of care. AM-PAC 6 Clicks Score (PT): 6 (07/03/252052) CODE STATUS: Code Status and Medical Interventions: CPR (Attempt to Resuscitate); Full Support Ordered at: 06/25/25 1620 Code Status (Patient has no pulse and is not breathing): CPR (Attempt to Resuscitate) Medical Interventions (Patient has pulse or is breathing): Full Support Level Of Support Discussed With: Patient Gigi Alcantara MD 07/04/25 * Osmany Mccann, [facility] - 07/04/2025 9:21 AM EDT Images from [...] Gastrointestinal Panel, PCR - Stool, Per Rectum [[id number]] (Abnormal) Collected: 06/26/25 0046 Lab Status: Final [...] Clostridioides difficile Toxin - Stool, Per Rectum [[id number]] (Abnormal) Collected: 06/26/2545 Lab Status: Final result Specimen: Stool from Per Rectum Updated: 06/26/25754 Narrative: The following orders were created for panel order Clostridioides difficile Toxin - Stool, Per Rectum. Procedure Abnormality Status --------- ------ Clostridioides difficile...[[id number]] Abnormal Final result Please view results for these tests on the individual orders. Clostridioides difficile Toxin, PCR - Stool, Per Rectum [[id number]] (Abnormal) Collected: 06/26/2545 Lab Status: Final result Specimen: Stool from Per Rectum Updated: 06/26/25 0755 Toxigenic C. difficile by PCR Detected Narrative: DNA from a toxigenic strain of C.difficile has been detected. MRSA Screen, PCR (Inpatient) - Swab, Nares [[id number]] (Abnormal) Collected: 06/26/2545 Lab Status: Final result Specimen: Swab from Nares Updated: 06/26/25 0850 MRSA PCR Positive Narrative: The negative predictive value of this diagnostic test is high and should only be used to consider de-escalating anti-MRSA therapy. A positive result may indicate colonization with MRSA and must be correlated clinically. Clostridioides difficile toxin Ag, Reflex - Stool, Per Rectum [[id number]] (Normal) Collected: 06/26/2545 Lab Status: Final result Specimen: Stool from Per Rectum Updated: 06/26/25 0836 C.diff Toxin Ag Negative Narrative: DNA from a toxigenic strain of C.difficile was detected, although the free toxin itself was not detected. These findings are consistent with C.difficile colonization and may not reflect actual C.difficile infection. Clinical correlation needed. Blood Culture - Blood, Hand, Right [[id number]] (Abnormal) (Susceptibility) Collected: 06/25/252029 Lab Status: Edited [...] Culture ID, PCR - Blood, Hand, Right [[id number]] (Abnormal) Collected: 06/25/252029 Lab Status: Final result Specimen: Blood from Hand, Right Updated: 06/26/25 210 BCID, PCR Enterococcus faecium. Zee/B (vancomycin resistance gene) not detected. Identification byBCID2 PCR. BOTTLE TYPE Anaerobic Bottle Narrative: Infectious disease consultation is highly recommended to rule out distant foci of infection. Urine Culture - Urine, Indwelling Urethral Catheter [[id number]] (Abnormal) (Susceptibility) Collected: 06/25/252000 Lab Status: Final [...] Resistant Blood Culture - Blood, Arm, Left [[id number]] (Normal) Collected: 06/25/25 1820 Lab Status: Final result Specimen: Blood from Arm, Left Updated: 06/30/25 193 Blood Culture No growth at 5 days Wound Culture - Swab, Foot, Left [[id number]] (Abnormal) (Susceptibility) Collected: 06/25/25 1818 Lab Status: [...] 07/04/2025 7:41 AM EDT Trung Pool 1955 [id number] Date of Consult: 07/04/2025 Evaluating Physician: Duglas Andrse MD Chief Complaint: diarrhea, hematuria, left foot [...] excoriation/crusted areas at the toes, hospitalized at [facility] June 04 untilSept2022 and discharged with oral antibiotics for left lower extremity cellulitis; he alsohas nonhealing wounds at his buttocks 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 Admitted to [facility] June 13 2023 diagnosis of sepsis per admission notes, left lower extremity cellulitis with pressure injury at buttocks. 06/15/24 Dr Colón saw and recommended amputation; patient refused ; see his note for detail 06/17/23 Dr buenrostro discussed potential options for heel debridement with patient; MRI no osteomyelitis per radiology; taken to OR PROCEDURE: Left 48984: Debridement of skin and subcutaneous tissue 00053: wound vacuum-assisted closure, wound measuring 2.5 cm [...] 07/25/[address] Buenrostro PROCEDURE: Left 31343: Debridement of skin and subcutaneous tissue 89993: Wound vacuum-assisted closure culture data with MRSA/aneta. [...] possible intervention 01/28/24 Dr. 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 Faust in [place] and has seen Dr Oneal (ID in [place]); he is not a good historian with respect to detail. Reports having had some further surgery to the left foot although he is unable to clarify specific date/procedure. Culture at [facility] August 07, 2024 from left foot wound with ESBL Klebsiella pneumoniae and pseudomonas aeruginosa (microbiology lab there reports the Pseudomonas is sensitive to Merrem). He reports his outpatient practitioners had recommended admission to the hospital for IV antibiotics but patient had refused at that time. He also reports that he was in the emergency room at [facility] mid August, no cultures done at that time. Patient reports practitioners at [facility] had recommended higher level amputation but patient has continued to refuse that. He was readmitted to [facility] on August 31, 2024 with worsening odor/drainage andredness/pain to the left lower extremity in recent days/weeks. He reports having been taking outpatient Levaquin; prior history MRSA/PSA and ESBL organisms 09/04/24 Dr Marcano. Procedure/CPT?? Codes: RIGHT AFTER SCHOOL TEACHER access - ultrasound guided Aortogram with LEFT lower extremity run-off LEFT PT angioplasty (2b159mn Nanocross) LEFT plantar angioplasty (2b899qp Nanocross, 2.1k503fb UltraverseRx) LEFT AT angioplasty (6z584vh Nanocross, 2.9g380qx UltraverseRx) LEFT DP angioplasty (2k315hi Nanocross, 2.1n953ga UltraverseRx) RIGHT AFTER SCHOOL TEACHER closure (Angioseal) 09/07/24 Dr Marcano Procedure/CPT?? Codes: RIGHT AFTER SCHOOL TEACHER access - ultrasound guided Aortogram with LEFT lower extremity run-off LEFT Pr AVF embolization RIGHT AFTER SCHOOL TEACHER closure 09/09/24 moved to ICU overnight with [...] femoral artery and left popliteal artery 6 [place] Angio-Seal closure of right common femoral arteriotomy [...] Laterality: Left; Please coordinate with Gautam Patel ([facility]) [phone] who will bring coils LUMBAR DISCECTOMY N/A [...] Vaughn Hollingsworth DO Placed in Followed by [facility] 125 mg Oral Weekly 08/01/25 0900 09/19/25 0859 06/26/25 0831 vancomycin (VANCOCIN) capsule 125 mg Ordering Provider: Vaughn Hollingsworth DO Placed in Followed by [facility] 125 mg Oral Daily 07/25/25 0900 08/01/25 0859 06/26/25 0831 vancomycin (VANCOCIN) capsule 125 mg Ordering Provider: Darrick Vaughn Villanueva Placed in Followed by [facility] 125 mg Oral 2 Times Daily 07/17/25 2100 07/24/25 2059 06/26/25 0831 vancomycin (VANCOCIN) capsule 125 mg Ordering Provider: Vaughn Hollingsworth Placed in Followed by [facility] 125 [...] 30 Minutes Intravenous Once 06/26/25 0606/25/25 23106/25/25 2312 piperacillin-tazobactam (ZOSYN) 4.5 g IVPB in [...] mL MBP Ordering Provider: Ally Jeffers V CONSTRUCTION COST ESTIMATOR 1,000 mg over 30 Minutes Intravenous Once [...] Value Units Date/Time CT Head Without Contrast [[id number]] Collected: 07/03/252109 Updated: 07/03/252113 Narrative: CT HEAD [...] MD 07/03/2025 9:11 PM EDT Workstation ID: [id number] XR [place] Procedure [[id number]] Resulted: 07/03/251543 Updated: 07/03/251543 Impression: --acute left lower leg/foot cellulitis and wound infection, prior culture July 2024 with ESBL Klebsiella pneumoniae and pseudomonas aeruginosa, pseudomonas was sensitive to Merrem per microbiology lab at [facility]. 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 ; readmission May 2025 and [...] 650 mg 650 mg Oral Q4H PRN mAanda Bermudez MD Or acetaminophen (TYLENOL) suppository 650 mg 650 mg Rectal Q4H PRN Amanda Bermudez MD aluminum-magnesium hydroxide-simethicone (MAALOX MAX) 400-400-40 MG/5ML suspension 15 mL 15 mL [id number] PRN Amanda Bermudez MD [Held by provider] [...] 10 mL Intravenous PRN Ally Jeffers V, CONSTRUCTION COST ESTIMATOR sodium chloride 0.9 % flush 10 mL [...] IVPB-VTB 1,000 mg Intravenous Q12H Osmany Mccann, [facility] 250 mL/hr at 07/01/252142 1,000 mg at [...] from the original note were not included. [facility] Medicine Services PROGRESS NOTE Patient Name: Trung [...] Blood Leuk Est Nitrite Protein CREAT Urine [facility] 06/25/252000 Yellow Turbid Large (3+) Large (3+) Positive Trace Brief Urine Lab Results (Last result in the past 365 days) Color Clarity Blood Leuk Est Nitrite Protein CREAT Urine [facility] 06/25/252000 Yellow Turbid Large (3+) Large (3+) Positive Trace Brief Urine Lab Results (Last result in the past 365 days) Color Clarity Blood Leuk Est Nitrite Protein CREAT Urine [facility] 06/25/252000 Yellow Turbid Large (3+) Large (3+) Positive Trace Microbiology Results Abnormal Procedure Component Value - Date/Time Urine Culture - Urine, Indwelling Urethral Catheter [[id number]] (Abnormal) (Susceptibility) Collected: 06/25/252000 Lab Status: Final [...] Resistant Blood Culture - Blood, Hand, Right [[id number]] (Abnormal) (Susceptibility) Collected: 06/25/252029 Lab Status: Edited [...] report. Wound Culture - Swab, Foot, Left [[id number]] (Abnormal) (Susceptibility) Collected: 06/25/258 Lab Status: Final [...] Culture ID, PCR - Blood, Hand, Right [[id number]] (Abnormal) Collected: 06/25/252029 Lab Status: Final result Specimen: Blood from Hand, Right Updated: 06/26/252101 BCID, PCR Enterococcus faecium. Zee/B (vancomycin resistance gene) not detected. Identification byBCID2 PCR. BOTTLE TYPE Anaerobic Bottle Narrative: Infectious disease consultation is highly recommended to rule out distant foci of infection. MRSA Screen, PCR (Inpatient) - Swab, Nares [[id number]] (Abnormal) Collected: 06/26/2545 Lab Status: Final result Specimen: Swab from Nares Updated: 06/26/25 0850 MRSA PCR Positive Narrative: The negative predictive value of this diagnostic test is high and should only be used to consider de-escalating anti-MRSA therapy. A positive result may indicate colonization with MRSA and must be correlated clinically. Gastrointestinal Panel, PCR - Stool, Per Rectum [[id number]] (Abnormal) Collected: 06/26/2545 Lab Status: Final result [...] Clostridioides difficile Toxin - Stool, Per Rectum [[id number]] (Abnormal) Collected: 06/26/2545 Lab Status: Final result Specimen: Stool from Per Rectum Updated: 06/26/25754 Narrative: The following orders were created for panel order Clostridioides difficile Toxin - Stool, Per Rectum. Procedure Abnormality Status --------- ------ Clostridioides difficile...[[id number]] Abnormal Final result Please view results for these tests on the individual orders. Clostridioides difficile Toxin, PCR - Stool, Per Rectum [[id number]] (Abnormal) Collected: 06/26/2545 Lab Status: Final result [...] [I73.9] Yes ??? 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 [...] finasteride. 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 Admitted to [facility] June 13 2023 diagnosis of sepsis per admission notes, left lower extremity cellulitis with pressure injury at buttocks. 06/15/24 Dr Colón saw and recommended amputation; patient refused ; see his note for detail 06/17/23 Dr buenrostro discussed potential options for heel debridement with patient; MRI no osteomyelitis per radiology; taken to OR PROCEDURE: Left 05460: Debridement of skin and subcutaneous tissue 53488: wound vacuum-assisted closure, wound measuring 2.5 cm [...] 07/25/[address] Buenrostro PROCEDURE: Left 13983: Debridement of skin and subcutaneous tissue 44167: Wound vacuum-assisted closure culture data with MRSA/aneta. [...] to left CHIP per vascular team d/w ut Procedure/CPT?? Codes: Procedure(s): LLE arteriogram with run-off possible intervention 01/28/24 Dr. Buenrostro PROCEDURE: Left 73653: 2nd lesser toe amputation at the level of the metatarsophalangeal joint 04736-87: 3rd lesser toe amputation at the level of the metatarsophalangeal joint 02/01/24 FLAT SORTING MACHINE CLERK overnight , shaking epsode 02/04/24 overnight events [...] reports being followed by Dr. Faust in [place] and has seen Dr Oneal (ID in [place]); he is not a good historian with respect to detail. Reports having had some further surgery to the left foot although he is unable to clarify specific date/procedure. Culture at [facility] August 07, 2024 from left foot wound with ESBL Klebsiella pneumoniae and pseudomonas aeruginosa (microbiology lab there reports the Pseudomonas is sensitive to Merrem). He reports his outpatient practitioners had recommended admission to the hospital for IV antibiotics but patient had refused at that time. He also reports that he was in the emergency room at [facility] mid August, no cultures done at that time. Patient reports practitioners at [facility] had recommended higher level amputation but patient has continued to refuse that. He was readmitted to [facility] on August 31, 2024 with worsening odor/drainage andredness/pain to the left lower extremity in recent days/weeks. He reports having been taking outpatient Levaquin; prior history MRSA/PSA and ESBL organisms 09/04/24 Dr Marcano. Procedure/CPT?? Codes: RIGHT AFTER SCHOOL TEACHER access - ultrasound guided Aortogram with LEFT lower extremity run-off LEFT PT angioplasty (3y515jg Nanocross) LEFT plantar angioplasty (7c610od Nanocross, 2.7y714vd UltraverseRx) LEFT AT angioplasty (0q254bv Nanocross, 2.7c044rt UltraverseRx) LEFT DP angioplasty (9t255cz Nanocross, 2.2c564xu UltraverseRx) RIGHT AFTER SCHOOL TEACHER closure (Angioseal) 09/07/24 Dr Marcano Procedure/CPT?? Codes: RIGHT AFTER SCHOOL TEACHER access - ultrasound guided Aortogram with LEFT lower extremity run-off LEFT Pr AVF embolization RIGHT AFTER SCHOOL TEACHER closure 09/09/24 moved to ICU overnight with [...] Laterality: Left; Please coordinate with Gautam Patel ([facility]) [phone] who will bring coils LUMBAR DISCECTOMY N/A [...] ([facility]) Status: Discontinued Ordering Provider: Osmany Mccann [facility] 2,250 mg over 135 Minutes Intravenous Once [...] Ordering Provider: Duglas Andres MD Placed in [facility] 125 mg Oral 4 Times [...] mL MBP Ordering Provider: Ally Jeffers V CONSTRUCTION COST ESTIMATOR 1,000 mg over 30 Minutes Intravenous Once [...] sensitive to Merrem per microbiology lab at [facility]. 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 ; readmission May 2025 and [...] 400-400-40 MG/5ML suspension 15 mL 15 mL [id number] PRN Amanda Bermudez MD [Held by provider] [...] BID Arnoldo Ca, Amanda 20 mg at 07/02/25 0649 finasteride [...] 1 tablet 1 tablet Oral Q6H PRN Boston, Kris, DO 1 tablet at 07/02/25 0125 Pharmacy to dose vancomycin Not Applicable Continuous PRN Duglas Andres MD Phosphorus Replacement - Follow Nurse / BPA Driven Protocol Not Applicable PRN Amanda Bermudez MD Potassium Replacement - Follow Nurse / BPA Driven Protocol Not Applicable MANISHAN Amanda Bermudez MD sacubitril-valsartan (ENTRESTO) 24-26 MG tablet 1 tablet 1 tablet Oral BID Amanda Bermudez MD 1 tablet at 07/01/25 2144 sodium chloride 0.9 % flush 10 mL 10 mL Intravenous PRN Ally Jeffers V, CONSTRUCTION COST ESTIMATOR sodium chloride 0.9 % flush 10 mL [...] IVPB-VTB 1,000 mg Intravenous Q12H Osmany Mccann, H 250 mL/hr at 07/01/25 2143 1,000 mg at 07/01/25 214 vancomycin (VANCOCIN) capsule 125 mg 125 mg Oral 4x Daily Duglas Andres MD 125 mg at 144 Followed by [START ON 07/10/2025] vancomycin (VANCOCIN) [...] Weekly Duglas Andres MD * Kris Boston, - 07/02/2025 1:55 PM EDT Images from the original note were not included. [facility] Medicine Services PROGRESS NOTE Patient Name: Trung [...] Urine Culture - Urine, Indwelling Urethral Catheter [[id number]] (Abnormal) (Susceptibility) Collected: 06/25/252000 Lab Status: Final [...] Resistant Blood Culture - Blood, Hand, Right [[id number]] (Abnormal) (Susceptibility) Collected: 06/25/252029 Lab Status: Edited [...] report. Wound Culture - Swab, Foot, Left [[id number]] (Abnormal) (Susceptibility) Collected: 06/25/251817 Lab Status: Final [...] Culture ID, PCR - Blood, Hand, Right [[id number]] (Abnormal) Collected: 06/25/252029 Lab Status: Final result Specimen: Blood from Hand, Right Updated: 06/26/252101 BCID, PCR Enterococcus faecium. Zee/B (vancomycin resistance gene) not detected. Identification byBCID2 PCR. BOTTLE TYPE Anaerobic Bottle Narrative: Infectious disease consultation is highly recommended to rule out distant foci of infection. MRSA Screen, PCR (Inpatient) - Swab, Nares [[id number]] (Abnormal) Collected: 06/26/2545 Lab Status: Final result Specimen: Swab from Nares Updated: 06/26/25 0850 MRSA PCR Positive Narrative: The negative predictive value of this diagnostic test is high and should only be used to consider de-escalating anti-MRSA therapy. A positive result may indicate colonization with MRSA and must be correlated clinically. Gastrointestinal Panel, PCR - Stool, Per Rectum [[id number]] (Abnormal) Collected: 06/26/2545 Lab Status: Final result [...] Clostridioides difficile Toxin - Stool, Per Rectum [[id number]] (Abnormal) Collected: 06/26/2545 Lab Status: Final result Specimen: Stool from Per Rectum Updated: 06/26/25 6103 Narrative: The following orders were created for panel order Clostridioides difficile Toxin - Stool, Per Rectum. Procedure Abnormality Status --------- ------ Clostridioides difficile...[[id number]] Abnormal Final result Please view results for these tests on the individual orders. Clostridioides difficile Toxin, PCR - Stool, Per Rectum [[id number]] (Abnormal) Collected: 06/26/25 0046 Lab Status: Final result Specimen: Stool from Per Rectum Updated: 06/26/25 0755 Toxigenic C. difficile by PCR Detected Narrative: DNA from a toxigenic strain of C.difficile has been detected. Microbiology Results Abnormal Procedure Component Value - Date/Time Urine Culture - Urine, Indwelling Urethral Catheter [[id number]] (Abnormal) (Susceptibility) Collected: 06/25/252000 Lab Status: Final [...] Resistant Blood Culture - Blood, Hand, Right [[id number]] (Abnormal) (Susceptibility) Collected: 06/25/252029 Lab Status: Edited [...] report. Wound Culture - Swab, Foot, Left [[id number]] (Abnormal) (Susceptibility) Collected: 06/25/25 1818 Lab Status: [...] Culture ID, PCR - Blood, Hand, Right [[id number]] (Abnormal) Collected: 06/25/252029 Lab Status: Final result Specimen: Blood from Hand, Right Updated: 06/26/252101 BCID, PCR Enterococcus faecium. Zee/B (vancomycin resistance gene) not detected. Identification byBCID2 PCR. BOTTLE TYPE Anaerobic Bottle Narrative: Infectious disease consultation is highly recommended to rule out distant foci of infection. MRSA Screen, PCR (Inpatient) - Swab, Nares [[id number]] (Abnormal) Collected: 06/26/2545 Lab Status: Final result Specimen: Swab from Nares Updated: 06/26/25 0850 MRSA PCR Positive Narrative: The negative predictive value of this diagnostic test is high and should only be used to consider de-escalating anti-MRSA therapy. A positive result may indicate colonization with MRSA and must be correlated clinically. Gastrointestinal Panel, PCR - Stool, Per Rectum [[id number]] (Abnormal) Collected: 06/26/2545 Lab Status: Final result [...] Clostridioides difficile Toxin - Stool, Per Rectum [[id number]] (Abnormal) Collected: 06/26/2545 Lab Status: Final result Specimen: Stool from Per Rectum Updated: 06/26/25754 Narrative: The following orders were created for panel order Clostridioides difficile Toxin - Stool, Per Rectum. Procedure Abnormality Status --------- ------ Clostridioides difficile...[[id number]] Abnormal Final result Please view results for these tests on the individual orders. Clostridioides difficile Toxin, PCR - Stool, Per Rectum [[id number]] (Abnormal) Collected: 06/26/2545 Lab Status: Final result Specimen: Stool from Per Rectum Updated: 06/26/25 075 Toxigenic C. difficile by PCR Detected Narrative: DNA from a toxigenic strain of C.difficile has been detected. Microbiology Results Abnormal Procedure Component Value - Date/Time Urine Culture - Urine, Indwelling Urethral Catheter [[id number]] (Abnormal) (Susceptibility) Collected: 06/25/252000 Lab Status: Final [...] Resistant Blood Culture - Blood, Hand, Right [[id number]] (Abnormal) (Susceptibility) Collected: 06/25/25 2030 Lab Status: [...] report. Wound Culture - Swab, Foot, Left [[id number]] (Abnormal) (Susceptibility) Collected: 06/25/25 1818 Lab Status: [...] Culture ID, PCR - Blood, Hand, Right [[id number]] (Abnormal) Collected: 06/25/252029 Lab Status: Final result Specimen: Blood from Hand, Right Updated: 06/26/252101 BCID, PCR Enterococcus faecium. Zee/B (vancomycin resistance gene) not detected. Identification byBCID2 PCR. BOTTLE TYPE Anaerobic Bottle Narrative: Infectious disease consultation is highly recommended to rule out distant foci of infection. MRSA Screen, PCR (Inpatient) - Swab, Nares [[id number]] (Abnormal) Collected: 06/26/2545 Lab Status: Final result Specimen: Swab from Nares Updated: 06/26/2550 MRSA PCR Positive Narrative: The negative predictive value of this diagnostic test is high and should only be used to consider de-escalating anti-MRSA therapy. A positive result may indicate colonization with MRSA and must be correlated clinically. Gastrointestinal Panel, PCR - Stool, Per Rectum [[id number]] (Abnormal) Collected: 06/26/2545 Lab Status: Final result [...] Clostridioides difficile Toxin - Stool, Per Rectum [[id number]] (Abnormal) Collected: 06/26/2545 Lab Status: Final result Specimen: Stool from Per Rectum Updated: 06/26/25754 Narrative: The following orders were created for panel order Clostridioides difficile Toxin - Stool, Per Rectum. Procedure Abnormality Status --------- ------ Clostridioides difficile...[[id number]] Abnormal Final result Please view results for these tests on the individual orders. Clostridioides difficile Toxin, PCR - Stool, Per Rectum [[id number]] (Abnormal) Collected: 06/26/2545 Lab Status: Final result Specimen: Stool from Per Rectum Updated: 06/26/25754 Toxigenic C. difficile by PCR Detected Narrative: DNA from a toxigenic strain of C.difficile has been detected. Microbiology Results Abnormal Procedure Component Value - Date/Time Urine Culture - Urine, Indwelling Urethral Catheter [[id number]] (Abnormal) (Susceptibility) Collected: 06/25/252000 Lab Status: Final [...] Resistant Blood Culture - Blood, Hand, Right [[id number]] (Abnormal) (Susceptibility) Collected: 06/25/252029 Lab Status: Edited [...] report. Wound Culture - Swab, Foot, Left [[id number]] (Abnormal) (Susceptibility) Collected: 06/25/251817 Lab Status: Final [...] Culture ID, PCR - Blood, Hand, Right [[id number]] (Abnormal) Collected: 06/25/252029 Lab Status: Final result Specimen: Blood from Hand, Right Updated: 06/26/252101 BCID, PCR Enterococcus faecium. Zee/B (vancomycin resistance gene) not detected. Identification byBCID2 PCR. BOTTLE TYPE Anaerobic Bottle Narrative: Infectious disease consultation is highly recommended to rule out distant foci of infection. MRSA Screen, PCR (Inpatient) - Swab, Nares [[id number]] (Abnormal) Collected: 06/26/2545 Lab Status: Final result Specimen: Swab from Nares Updated: 06/26/25 0850 MRSA PCR Positive Narrative: The negative predictive value of this diagnostic test is high and should only be used to consider de-escalating anti-MRSA therapy. A positive result may indicate colonization with MRSA and must be correlated clinically. Gastrointestinal Panel, PCR - Stool, Per Rectum [[id number]] (Abnormal) Collected: 06/26/2545 Lab Status: Final result [...] Clostridioides difficile Toxin - Stool, Per Rectum [[id number]] (Abnormal) Collected: 06/26/2545 Lab Status: Final result Specimen: Stool from Per Rectum Updated: 06/26/25 6395 Narrative: The following orders were created for panel order Clostridioides difficile Toxin - Stool, Per Rectum. Procedure Abnormality Status --------- ------ Clostridioides difficile...[[id number]] Abnormal Final result Please view results for these tests on the individual orders. Clostridioides difficile Toxin, PCR - Stool, Per Rectum [[id number]] (Abnormal) Collected: 06/26/2545 Lab Status: Final result Specimen: Stool from Per Rectum Updated: 06/26/25 0755 Toxigenic C. difficile by PCR Detected Narrative: DNA from a toxigenic strain of C.difficile has been detected. Microbiology Results Abnormal Procedure Component Value - Date/Time Urine Culture - Urine, Indwelling Urethral Catheter [[id number]] (Abnormal) (Susceptibility) Collected: 06/25/252000 Lab Status: Final [...] Resistant Blood Culture - Blood, Hand, Right [[id number]] (Abnormal) (Susceptibility) Collected: 06/25/252029 Lab Status: Edited [...] report. Wound Culture - Swab, Foot, Left [[id number]] (Abnormal) (Susceptibility) Collected: 06/25/251817 Lab Status: Final [...] Culture ID, PCR - Blood, Hand, Right [[id number]] (Abnormal) Collected: 06/25/252029 Lab Status: Final result Specimen: Blood from Hand, Right Updated: 06/26/252101 BCID, PCR Enterococcus faecium. Zee/B (vancomycin resistance gene) not detected. Identification byBCID2 PCR. BOTTLE TYPE Anaerobic Bottle Narrative: Infectious disease consultation is highly recommended to rule out distant foci of infection. MRSA Screen, PCR (Inpatient) - Swab, Nares [[id number]] (Abnormal) Collected: 06/26/2545 Lab Status: Final result Specimen: Swab from Nares Updated: 06/26/25 0850 MRSA PCR Positive Narrative: The negative predictive value of this diagnostic test is high and should only be used to consider de-escalating anti-MRSA therapy. A positive result may indicate colonization with MRSA and must be correlated clinically. Gastrointestinal Panel, PCR - Stool, Per Rectum [[id number]] (Abnormal) Collected: 06/26/2545 Lab Status: Final result [...] Clostridioides difficile Toxin - Stool, Per Rectum [[id number]] (Abnormal) Collected: 06/26/2545 Lab Status: Final result Specimen: Stool from Per Rectum Updated: 06/26/25754 Narrative: The following orders were created for panel order Clostridioides difficile Toxin - Stool, Per Rectum. Procedure Abnormality Status --------- ------ Clostridioides difficile...[[id number]] Abnormal Final result Please view results for these tests on the individual orders. Clostridioides difficile Toxin, PCR - Stool, Per Rectum [[id number]] (Abnormal) Collected: 06/26/2545 Lab Status: Final result [...] [I73.9] Yes ??? 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 [...] santos. 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 Norovirus - GI PCR panel [...] AM-PAC 6 Clicks Score (PT): 13 (07/02/25 2034) CODE STATUS: Code Status and Medical Interventions: CPR (Attempt to Resuscitate); Full Support Ordered at: 06/25/25 4400 Code Status (Patient has no pulse and is not breathing): CPR (Attempt to Resuscitate) Medical Interventions (Patient has pulse or is breathing): Full Support Level Of Support Discussed With: Patient Kris DO Ludy 07/02/25 * Duglas Andres MD - 07/02/2025 7:51 AM EDT Trung Shipmanroverto 1955 [id number] Date of Consult: 07/02/2025 Evaluating Physician: Duglas [...] excoriation/crusted areas at the toes, hospitalized at [facility] June 04 untilSept2022 and discharged with oral antibiotics for left lower extremity cellulitis; he alsohas nonhealing wounds at his buttocks 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 Admitted to [facility] June 13 2023 diagnosis of sepsis per admission notes, left lower extremity cellulitis with pressure injury at buttocks. 06/15/24 Dr Colón saw and recommended amputation; patient refused ; see his note for detail 06/17/23 Dr buenrostro discussed potential options for heel debridement with patient; MRI no osteomyelitis per radiology; taken to OR PROCEDURE: Left 55875: Debridement of skin and subcutaneous tissue 79038: wound vacuum-assisted closure, wound measuring 2.5 cm [...] 07/25/[address] Buenrostro PROCEDURE: Left 97515: Debridement of skin and subcutaneous tissue 24772: Wound vacuum-assisted closure culture data with MRSA/aneta. [...] for care Readmitted 01/15/24; consult by Dr Naeven Griffin ; recent trauma after bumping left second toe on household furniture; subsequent redness and increased pain 01/26/24 Dr Olvera; intervention to left CHIP per vascular team d/w me Procedure/CPT?? Codes: Procedure(s): LLE arteriogram with run-off possible intervention 01/28/24 Dr. 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 Faust in [place] and has seen Dr Oneal (ID in [place]); he is not a good historian with respect to detail. Reports having had some further surgery to the left foot although he is unable to clarify specific date/procedure. Culture at [facility] August 07, 2024 from left foot wound with ESBL Klebsiella pneumoniae and pseudomonas aeruginosa (microbiology lab there reports the Pseudomonas is sensitive to Merrem). He reports his outpatient practitioners had recommended admission to the hospital for IV antibiotics but patient had refused at that time. He also reports that he was in the emergency room at [facility] mid August, no cultures done at that time. Patient reports practitioners at [facility] had recommended higher level amputation but patient has continued to refuse that. He was readmitted to [facility] on August 31, 2024 with worsening odor/drainage andredness/pain to the left lower extremity in recent days/weeks. He reports having been taking outpatient Levaquin; prior history MRSA/PSA and ESBL organisms 09/04/24 Dr Marcano. Procedure/CPT?? Codes: RIGHT AFTER SCHOOL TEACHER access - ultrasound guided Aortogram with LEFT lower extremity run-off LEFT PT angioplasty (0d921ad Nanocross) LEFT plantar angioplasty (3p607ku Nanocross, 2.8u181se UltraverseRx) LEFT AT angioplasty (9d430ht Nanocross, 2.3a697wt UltraverseRx) LEFT DP angioplasty (2p383np Nanocross, 2.4n282eh UltraverseRx) RIGHT AFTER SCHOOL TEACHER closure (Angioseal) 09/07/24 Dr Marcano Procedure/CPT?? Codes: RIGHT AFTER SCHOOL TEACHER access - ultrasound guided Aortogram with LEFT lower extremity run-off LEFT Pr AVF embolization RIGHT AFTER SCHOOL TEACHER closure 09/09/24 moved to ICU overnight with [...] ASSISTED CLOSURE; Surgeon: Cecil Buenrostro Jr., MD;Location: [facility]; Service: Orthopedics; Laterality: Left; INCISION AND [...] Laterality: Left; Please coordinate with Gautam Patel ([facility]) [phone] who will bring coils LUMBAR DISCECTOMY N/A [...] Ordering Provider: Duglas Andres MD Placed in [facility] 125 mg Oral 4 Times [...] sensitive to Merrem per microbiology lab at [facility]. 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 ; readmission May 2025 and [...] 400-400-40 MG/5ML suspension 15 mL 15 mL [id number] PRN Amanda Bermudez MD [Held by provider] [...] 5,000 Units Subcutaneous Q8H Albert, Lupe E, CONSTRUCTION COST ESTIMATOR 5,000 Units at 07/02/25 0649 influenza vac [...] 10 mL Intravenous PRN Ally Jeffers V, CONSTRUCTION COST ESTIMATOR sodium chloride 0.9 % flush 10 mL [...] IVPB-VTB 1,000 mg Intravenous Q12H Osmany Mccann, [facility] 250 mL/hr at 07/01/252142 1,000 mg at [...] Oral Weekly Duglas Andres MD * Kris Boston DO - 07/01/2025 1:17 PM EDT Images from the original note were not included. [facility] Medicine Services PROGRESS NOTE Patient Name: Trung [...] Urine Culture - Urine, Indwelling Urethral Catheter [[id number]] (Abnormal) (Susceptibility) Collected: 06/25/252000 Lab Status: Final [...] Resistant Blood Culture - Blood, Hand, Right [[id number]] (Abnormal) (Susceptibility) Collected: 06/25/252029 Lab Status: Edited [...] report. Wound Culture - Swab, Foot, Left [[id number]] (Abnormal) (Susceptibility) Collected: 10/13/25 1818 Lab Status: Final result Specimen: Swab [...] Culture ID, PCR - Blood, Hand, Right [[id number]] (Abnormal) Collected: 06/25/252029 Lab Status: Final result Specimen: Blood from Hand, Right Updated: 06/26/252101 BCID, PCR Enterococcus faecium. Zee/B (vancomycin resistance gene) not detected. Identification byBCID2 PCR. BOTTLE TYPE Anaerobic Bottle Narrative: Infectious disease consultation is highly recommended to rule out distant foci of infection. MRSA Screen, PCR (Inpatient) - Swab, Nares [[id number]] (Abnormal) Collected: 06/26/25 0046 Lab Status: Final result Specimen: Swab from Nares Updated: 06/26/25 0850 MRSA PCR Positive Narrative: The negative predictive value of this diagnostic test is high and should only be used to consider de-escalating anti-MRSA therapy. A positive result may indicate colonization with MRSA and must be correlated clinically. Gastrointestinal Panel, PCR - Stool, Per Rectum [[id number]] (Abnormal) Collected: 06/26/2545 Lab Status: Final result [...] Clostridioides difficile Toxin - Stool, Per Rectum [[id number]] (Abnormal) Collected: 06/26/2545 Lab Status: Final result Specimen: Stool from Per Rectum Updated: 06/26/25754 Narrative: The following orders were created for panel order Clostridioides difficile Toxin - Stool, Per Rectum. Procedure Abnormality Status --------- ------ Clostridioides difficile...[[id number]] Abnormal Final result Please view results for these tests on the individual orders. Clostridioides difficile Toxin, PCR - Stool, Per Rectum [[id number]] (Abnormal) Collected: 06/26/2545 Lab Status: Final result [...] [I73.9] Yes ??? 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 [...] Plan to follow up outpatient for senior care bladder management Norovirus - GI PCR panel [...] AM-PAC 6 Clicks Score (PT): 10 (07/01/25 9076) CODE STATUS: Code Status and Medical Interventions: CPR (Attempt to Resuscitate); Full Support Ordered at: 06/25/25 2310 Code Status (Patient has no pulse and is not breathing): CPR (Attempt to Resuscitate) Medical Interventions (Patient has pulse or is breathing): Full Support Level Of Support Discussed With: Patient Kris Boston DO 07/01/25 * Duglas Andres MD - 07/01/2025 7:02 AM EDT Trung Martinez [facility] 1955 [id number] Date of Consult: 07/01/2025 Evaluating Physician: Duglas [...] excoriation/crusted areas at the toes, hospitalized at [facility] June 04 untilSept2022 and discharged with oral antibiotics for left lower extremity cellulitis; he alsohas nonhealing wounds at his buttocks 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 Admitted to [facility] June 13 2023 diagnosis of sepsis per admission notes, left lower extremity cellulitis with pressure injury at buttocks. 06/15/24 Dr Colón saw and recommended amputation; patient refused ; see his note for detail 06/17/23 Dr buenrostro discussed potential options for heel debridement with patient; MRI no osteomyelitis per radiology; taken to OR PROCEDURE: Left 50798: Debridement of skin and subcutaneous tissue 12355: wound vacuum-assisted closure, wound measuring 2.5 cm [...] 07/25/[address] Buenrostro PROCEDURE: Left 34975: Debridement of skin and subcutaneous tissue 93440: Wound vacuum-assisted closure culture data with MRSA/aneta. [...] possible intervention 01/28/24 Dr. Buenrostro PROCEDURE: Left 16079: 2nd lesser toe amputation at the level of the metatarsophalangeal joint 10172-43: 3rd lesser toe amputation at the level of the metatarsophalangeal joint 02/01/24 FLAT SORTING MACHINE CLERK overnight , shaking epsode 02/04/24 overnight events [...] reports being followed by Dr. Faust in [place] and has seen Dr Oneal (ID in [place]); he is not a good historian with respect to detail. Reports having had some further surgery to the left foot although he is unable to clarify specific date/procedure. Culture at [facility] August 07, 2024 from left foot wound with ESBL Klebsiella pneumoniae and pseudomonas aeruginosa (microbiology lab there reports the Pseudomonas is sensitive to Merrem). He reports his outpatient practitioners had recommended admission to the hospital for IV antibiotics but patient had refused at that time. He also reports that he was in the emergency room [facility] mid August, no cultures done at that time. Patient reports practitioners at [facility] had recommended higher level amputation but patient has continued to refuse that. He was readmitted to [facility] on August 31, 2024 with worsening odor/drainage andredness/pain to the left lower extremity in recent days/weeks. He reports having been taking outpatient Levaquin; prior history MRSA/PSA and ESBL organisms 09/04/24 Dr Marcano. Procedure/CPT?? Codes: RIGHT AFTER SCHOOL TEACHER access - ultrasound guided Aortogram with LEFT lower extremity run-off LEFT PT angioplasty (0r909qv Nanocross) LEFT plantar angioplasty (1d474wn Nanocross, 2.7d265ti UltraverseRx) LEFT AT angioplasty (5w344th Nanocross, 2.3d117qn UltraverseRx) LEFT DP angioplasty (0r852td Nanocross, 2.0v799pb UltraverseRx) RIGHT AFTER SCHOOL TEACHER closure (Angioseal) 09/07/24 Dr Marcano Procedure/CPT?? Codes: RIGHT AFTER SCHOOL TEACHER access - ultrasound guided Aortogram with LEFT lower extremity run-off LEFT Pr AVF embolization RIGHT AFTER SCHOOL TEACHER closure 09/09/24 moved to ICU overnight with [...] Cecil Buenrostro Jr., MD; Location: [facility]; Service: Orthopedics; Laterality: Left; ANTERIOR CERVICAL DISCECTOMY [...] Laterality: Left; Please coordinate with Gautam Patel ([facility]) [phone] who will bring coils LUMBAR DISCECTOMY N/A [...] Ordering Provider: Duglas Andres MD Placed in [facility] 125 mg Oral 4 Times [...] sensitive to Merrem per microbiology lab at [facility]. 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 ; readmission May 2025 and [...] 400-400-40 MG/5ML suspension 15 mL 15 mL [id number] PRN Amanda Bermudez MD [Held by provider] apixaban (ELIQUIS) tablet 5 mg 5 mg Oral BID Amadna Bermudez MD ascorbic acid (VITAMIN C) tablet 500 mg 500 mg Oral Daily Amanda Bermudez MD 500 mg at 06/30/25 0949 baclofen (LIORESAL) tablet 10 mg 10 mg Oral Q12H Aamnda Bermudez MD 10 mg at 06/30/25 2152 [...] 1,000 mg Intravenous Q12H Osmany Mccann H, [facility] 250 mL/hr at 06/30/25 2150 1,000 mg [...] Andres MD * Kris Boston, DO - 06/30/2025 1:59 PM EDT Images from the original note were not included. [facility] Medicine Services PROGRESS NOTE Patient Name: Trung [...] Urine Culture - Urine, Indwelling Urethral Catheter [[id number]] (Abnormal) (Susceptibility) Collected: 06/25/252000 Lab Status: Final [...] Resistant Blood Culture - Blood, Hand, Right [[id number]] (Abnormal) (Susceptibility) Collected: 06/25/252029 Lab Status: Edited [...] report. Wound Culture - Swab, Foot, Left [[id number]] (Abnormal) (Susceptibility) Collected: 06/25/25 1818 Lab Status: [...] Culture ID, PCR - Blood, Hand, Right [[id number]] (Abnormal) Collected: 06/25/25 2030 Lab Status: Final result Specimen: Blood from Hand, Right Updated: 06/26/252101 BCID, PCR Enterococcus faecium. Zee/B (vancomycin resistance gene) not detected. Identification byBCID2 PCR. BOTTLE TYPE Anaerobic Bottle Narrative: Infectious disease consultation is highly recommended to rule out distant foci of infection. MRSA Screen, PCR (Inpatient) - Swab, Nares [[id number]] (Abnormal) Collected: 06/26/25 0046 Lab Status: Final result Specimen: Swab from Nares Updated: 06/26/25849 MRSA PCR Positive Narrative: The negative predictive value of this diagnostic test is high and should only be used to consider de-escalating anti-MRSA therapy. A positive result may indicate colonization with MRSA and must be correlated clinically. Gastrointestinal Panel, PCR - Stool, Per Rectum [[id number]] (Abnormal) Collected: 06/26/2545 Lab Status: Final result [...] Clostridioides difficile Toxin - Stool, Per Rectum [[id number]] (Abnormal) Collected: 06/26/2545 Lab Status: Final result Specimen: Stool from Per Rectum Updated: 06/26/25754 Narrative: The following orders were created for panel order Clostridioides difficile Toxin - Stool, Per Rectum. Procedure Abnormality Status --------- ------ Clostridioides difficile...[[id number]] Abnormal Final result Please view results for these tests on the individual orders. Clostridioides difficile Toxin, PCR - Stool, Per Rectum [[id number]] (Abnormal) Collected: 06/26/2545 Lab Status: Final result [...] [I73.9] Yes ??? 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 [...] Plan to follow up outpatient for senior care bladder management - 06/27 EKG showing Qt/Qtc [...] Kris Boston DO 06/30/25 * Jessie Hernandez [facility] - 06/30/2025 7:46 AM EDT Images from [...] Gastrointestinal Panel, PCR - Stool, Per Rectum [[id number]] (Abnormal) Collected: 06/26/2545 Lab Status: Final result [...] Clostridioides difficile Toxin - Stool, Per Rectum [[id number]] (Abnormal) Collected: 06/26/2545 Lab Status: Final result Specimen: Stool from Per Rectum Updated: 06/26/25 0755 Narrative: The following orders were created for panel order Clostridioides difficile Toxin - Stool, Per Rectum. Procedure Abnormality Status --------- ------ Clostridioides difficile...[[id number]] Abnormal Final result Please view results for these tests on the individual orders. Clostridioides difficile Toxin, PCR - Stool, Per Rectum [[id number]] (Abnormal) Collected: 06/26/2545 Lab Status: Final result Specimen: Stool from Per Rectum Updated: 06/26/255 Toxigenic C. difficile by PCR Detected Narrative: DNA from a toxigenic strain of C.difficile has been detected. MRSA Screen, PCR (Inpatient) - Swab, Nares [[id number]] (Abnormal) Collected: 06/26/2545 Lab Status: Final result Specimen: Swab from Nares Updated: 06/26/25 0850 MRSA PCR Positive Narrative: The negative predictive value of this diagnostic test is high and should only be used to consider de-escalating anti-MRSA therapy. A positive result may indicate colonization with MRSA and must be correlated clinically. Clostridioides difficile toxin Ag, Reflex - Stool, Per Rectum [[id number]] (Normal) Collected: 06/26/2545 Lab Status: Final result Specimen: Stool from Per Rectum Updated: 06/26/25 0836 C.diff Toxin Ag Negative Narrative: DNA from a toxigenic strain of C.difficile was detected, although the free toxin itself was not detected. These findings are consistent with C.difficile colonization and may not reflect actual C.difficile infection. Clinical correlation needed. Blood Culture - Blood, Hand, Right [[id number]] (Abnormal) (Susceptibility) Collected: 06/25/252029 Lab Status: Edited [...] Culture ID, PCR - Blood, Hand, Right [[id number]] (Abnormal) Collected: 06/25/252029 Lab Status: Final result Specimen: Blood from Hand, Right Updated: 06/26/252101 BCID, PCR Enterococcus faecium. Zee/B (vancomycin resistance gene) not detected. Identification byBCID2 PCR. BOTTLE TYPE Anaerobic Bottle Narrative: Infectious disease consultation is highly recommended to rule out distant foci of infection. Urine Culture - Urine, Indwelling Urethral Catheter [[id number]] (Abnormal) Collected: 06/25/252000 Lab Status: Preliminary result Specimen: Urine from Indwelling Urethral Catheter Updated: 06/29/25 0935 Urine Culture >100,000 CFU/mL Proteus mirabilis Comment: ESBL confirmation in progress Narrative: Colonization of the urinary tract without infection is common. Treatment is discouraged unless the patient is symptomatic, , or undergoing an invasive urologic procedure. Blood Culture - Blood, Arm, Left [[id number]] (Normal) Collected: 06/25/25 1820 Lab Status: Preliminary result Specimen: Blood from Arm, Left Updated: 06/29/25 193 Blood Culture No growth at 4 days Wound Culture - Swab, Foot, Left [[id number]] (Abnormal) (Susceptibility) Collected: 06/25/25 1818 Lab Status: [...] MD - 06/30/2025 7:13 AM EDT Trung Martinez Corine 1955 [id number] Date of Consult: 06/30/2025 Evaluating Physician: Duglas [...] excoriation/crusted areas at the toes, hospitalized at [facility] June 04 untilSe2022 and discharged with oral antibiotics for left lower extremity cellulitis; he alsohas nonhealing wounds at his buttocks 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 Admitted to [facility] June 13 2023 diagnosis of sepsis per admission notes, left lower extremity cellulitis with pressure injury at buttocks. 06/15/24 Dr Colón saw and recommended amputation; patient refused ; see his note for detail 06/17/23 Dr buenrostro discussed potential options for heel debridement with patient; MRI no osteomyelitis per radiology; taken to OR PROCEDURE: Left 29883: Debridement of skin and subcutaneous tissue 13124: wound vacuum-assisted closure, wound measuring 2.5 cm [...] 07/25/[address] Buenrostro PROCEDURE: Left 21559: Debridement of skin and subcutaneous tissue 16499: Wound vacuum-assisted closure culture data with MRSA/aneta. [...] possible intervention 01/28/24 Dr. 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 Faust in [place] and has seen Dr Oneal (ID in [place]); he is not a good historian with respect to detail. Reports having had some further surgery to the left foot although he is unable to clarify specific date/procedure. Culture at [facility] August 07, 2024 from left foot wound with ESBL Klebsiella pneumoniae and pseudomonas aeruginosa (microbiology lab there reports the Pseudomonas is sensitive to Merrem). He reports his outpatient practitioners had recommended admission to the hospital for IV antibiotics but patient had refused at that time. He also reports that he was in the emergency room at [facility] mid August, no cultures done at that time. Patient reports practitioners at [facility] had recommended higher level amputation but patient has continued to refuse that. He was readmitted to [facility] on August 31, 2024 with worsening odor/drainage andredness/pain to the left lower extremity in recent days/weeks. He reports having been taking outpatient Levaquin; prior history MRSA/PSA and ESBL organisms 09/04/24 Dr Marcano. Procedure/CPT?? Codes: RIGHT AFTER SCHOOL TEACHER access - ultrasound guided Aortogram with LEFT lower extremity run-off LEFT PT angioplasty (0e021oi Nanocross) LEFT plantar angioplasty (5a295ho Nanocross, 2.9x628ho UltraverseRx) LEFT AT angioplasty (9x624jz Nanocross, 2.6j789oz UltraverseRx) LEFT DP angioplasty (2d195kh Nanocross, 2.2i776yk UltraverseRx) RIGHT AFTER SCHOOL TEACHER closure (Angioseal) 09/07/24 Dr Marcano Procedure/CPT?? Codes: RIGHT AFTER SCHOOL TEACHER access - ultrasound guided Aortogram with LEFT lower extremity run-off LEFT Pr AVF embolization RIGHT AFTER SCHOOL TEACHER closure 09/09/24 moved to ICU overnight with [...] femoral access; Surgeon: Jared Marcano MD; Location: [facility]; Service: Peripheral Vascular; Laterality: [...] FILTER PLACEMENT; Surgeon: Pedro Zapien MD; Location: [facility]; Service: Interventional Radiology INTERVENTIONAL RADIOLOGY PROCEDURE Left 09/07/2024 Procedure: LEFT peroneal arteriovenous fistula embolization - Right femoral access; Surgeon: Jared Marcano MD; Location: [facility]; Service: Cardiovascular; Laterality: Left; Please coordinate with Gautam Patel ([facility]) [phone] who will bring coils LUMBAR DISCECTOMY N/A [...] Duglas Andres MD Placed in Followed by [facility] 125 mg Oral Weekly 08/01/25 [...] NS IVPB ([facility]) Status: Discontinued Ordering Provider: Osmayn Mccann RPH 2,250 mg over 135 Minutes [...] Ordering Provider: Duglas Andres MD Placed in [facility] 125 mg Oral 4 Times [...] sensitive to Merrem per microbiology lab at [facility]. 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 ; readmission May 2025 and [...] mg 650 mg Oral Q4H PRN Amanda Bremudez MD Or acetaminophen (TYLENOL) suppository 650 mg 650 mg Rectal Q4H PRN Amanda Bermudez MD aluminum-magnesium hydroxide-simethicone (MAALOX MAX) 400-400-40 MG/5ML suspension 15 mL 15 mL QdomP5A PRN Amanda Bermudez MD [Held by provider] [...] BID Arnoldo Ca PharmD 20 mg at 06/29/25 1734 finasteride [...] 10 mL Intravenous PRN Ally Jeffers V, CONSTRUCTION COST ESTIMATOR sodium chloride 0.9 % flush 10 mL [...] IVPB-VTB 1,000 mg Intravenous Q12H Osmany Mccann, [facility] 250 mL/hr at 06/29/25 2158 1,000 mg at 06/29/25 2158 vancomycin (VANCOCIN) capsule 125 mg 125 mg [...] mg Oral Weekly Duglas Andres MD * SandroMilena APRN - 06/29/2025 2:42 PM EDT Images from the original note were not included. [facility] Medicine Services PROGRESS NOTE Patient Name: Trung [...] 0741 PROTIME 16.7* INR 1.27* Lab 06/26/25 07 CHOLESTEROL 154 LDL CHOL 103* HDL CHOL [...] Urine Culture - Urine, Indwelling Urethral Catheter [[id number]] (Abnormal) Collected: 06/25/252000 Lab Status: Preliminary result Specimen: Urine from Indwelling Urethral Catheter Updated: 06/29/25 09 Urine Culture >100,000 CFU/mL Proteus mirabilis Comment: ESBL confirmation in progress Narrative: Colonization of the urinary tract without infection is common. Treatment is discouraged unless the patient is symptomatic, , or undergoing an invasive urologic procedure. Blood Culture - Blood, Hand, Right [[id number]] (Abnormal) (Susceptibility) Collected: 06/25/252029 Lab Status: Edited [...] report. Wound Culture - Swab, Foot, Left [[id number]] (Abnormal) (Susceptibility) Collected: 06/25/25 181 Lab Status: [...] Culture ID, PCR - Blood, Hand, Right [[id number]] (Abnormal) Collected: 06/25/252029 Lab Status: Final result Specimen: Blood from Hand, Right Updated: 06/26/252101 BCID, PCR Enterococcus faecium. Zee/B (vancomycin resistance gene) not detected. Identification by BCID2 PCR. BOTTLE TYPE Anaerobic Bottle Narrative: Infectious disease consultation is highly recommended to rule out distant foci of infection. MRSA Screen, PCR (Inpatient) - Swab, Nares [[id number]] (Abnormal) Collected: 06/26/2545 Lab Status: Final result Specimen: Swab from Nares Updated: 06/26/25 0850 MRSA PCR Positive Narrative: The negative predictive value of this diagnostic test is high and should only be used to consider de-escalating anti-MRSA therapy. A positive result may indicate colonization with MRSA and must be correlated clinically. Gastrointestinal Panel, PCR - Stool, Per Rectum [[id number]] (Abnormal) Collected: 06/26/2545 Lab Status: Final result [...] Clostridioides difficile Toxin - Stool, Per Rectum [[id number]] (Abnormal) Collected: 06/26/2545 Lab Status: Final result Specimen: Stool from Per Rectum Updated: 06/26/25754 Narrative: The following orders were created for panel order Clostridioides difficile Toxin - Stool, Per Rectum. Procedure Abnormality Status --------- ------ Clostridioides difficile...[[id number]] Abnormal Final result Please view results for these tests on the individual orders. Clostridioides difficile Toxin, PCR - Stool, Per Rectum [[id number]] (Abnormal) Collected: 06/26/2545 Lab Status: Final result [...] [I73.9] Yes ??? 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 [...] AM-PAC 6 Clicks Score (PT): 9 (06/29/25 0938) CODE STATUS: Code Status and Medical Interventions: CPR (Attempt to Resuscitate); Full Support Ordered at: 06/25/25 2310 Code Status (Patient has no pulse and is not breathing): CPR (Attempt to Resuscitate) Medical Interventions (Patient has pulse or is breathing): Full Support Level Of Support Discussed With: Patient Milena Jo APRN 06/29/25 * Duglas Andres MD - 06/29/2025 7:51 AM EDT Trung Martinez [facility] 1955 [id number] Date of Consult: 06/29/2025 Evaluating Physician: Duglas [...] excoriation/crusted areas at the toes, hospitalized at [facility] June 04 untilSept2022 and discharged with oral antibiotics for left lower extremity cellulitis; he alsohas nonhealing wounds at his buttocks 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 Admitted to [facility] June 13 2023 diagnosis of sepsis per admission notes, left lower extremity cellulitis with pressure injury at buttocks. 06/15/24 Dr Colón saw and recommended amputation; patient refused ; see his note for detail 06/17/23 Dr buenrostro discussed potential options for heel debridement with patient; MRI no osteomyelitis per radiology; taken to OR PROCEDURE: Left 60322: Debridement of skin and subcutaneous tissue 93801: wound vacuum-assisted closure, wound measuring 2.5 cm [...] 07/25/[address] Buenrostro PROCEDURE: Left 04624: Debridement of skin and subcutaneous tissue 11701: Wound vacuum-assisted closure culture data with MRSA/aneta. [...] possible intervention 01/28/24 Dr. 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 Faust in [place] and has seen Dr Oneal (ID in [place]); he is not a good historian with respect to detail. Reports having had some further surgery to the left foot although he is unable to clarify specific date/procedure. Culture at [facility] August 07, 2024 from left foot wound with ESBL Klebsiella pneumoniae and pseudomonas aeruginosa (microbiology lab there reports the Pseudomonas is sensitive to Merrem). He reports his outpatient practitioners had recommended admission to the hospital for IV antibiotics but patient had refused at that time. He also reports that he was in the emergency room at [facility] mid August, no cultures done at that time. Patient reports practitioners at [facility] had recommended higher level amputation but patient has continued to refuse that. He was readmitted to [facility] on August 31, 2024 with worsening odor/drainage andredness/pain to the left lower extremity in recent days/weeks. He reports having been taking outpatient Levaquin; prior history MRSA/PSA and ESBL organisms 09/04/24 Dr Marcano. Procedure/CPT?? Codes: RIGHT AFTER SCHOOL TEACHER access - ultrasound guided Aortogram with LEFT lower extremity run-off LEFT PT angioplasty (7n358gs Nanocross) LEFT plantar angioplasty (3n286cj Nanocross, 2.3c402im UltraverseRx) LEFT AT angioplasty (2n275xu Nanocross, 2.8a176xg UltraverseRx) LEFT DP angioplasty (4q512or Nanocross, 2.4f398fv UltraverseRx) RIGHT AFTER SCHOOL TEACHER closure (Angioseal) 09/07/24 Dr Marcano Procedure/CPT?? Codes: RIGHT AFTER SCHOOL TEACHER access - ultrasound guided Aortogram with LEFT lower extremity run-off LEFT Pr AVF embolization RIGHT AFTER SCHOOL TEACHER closure 09/09/24 moved to ICU overnight with [...] Cecil Buenrostro Jr., MD; Location: [facility]; Service: Orthopedics; Laterality: Left; ANTERIOR CERVICAL DISCECTOMY W/ FUSION Bilateral 07/17/2020 Procedure: Cervical discectomy anterior with fusion C3-4; Surgeon: Tyree Tan MD; Location:[facility]; Service: Neurosurgery; Laterality: Bilateral; AORTOGRAM N/A [...] Laterality: Left; Please coordinate with Gautam Patel ([facility]) [phone] who will bring coils LUMBAR DISCECTOMY N/A [...] Ordering Provider: Duglas Andres MD Placed in [facility] 125 mg Oral 4 Times [...] mL IVPB Ordering Provider: Ally Jeffers V CONSTRUCTION COST ESTIMATOR 6 mg/kg ?? 94.6 kg (Adjusted) 100 mL/hr over 30 Minutes Intravenous Once 06/25/25212706/25/25230606/25/252111 meropenem (MERREM) 1,000 mg in sodium chloride 0.9 % 100 mL MBP Ordering Provider: Ally Jeffers V CONSTRUCTION COST ESTIMATOR 1,000 mg over 30 Minutes Intravenous Once [...] Units Date/Time MRI Foot Left Without Contrast [[id number]] Collected: 06/26/252153 Updated: 06/26/252210 Narrative: MRI FOOT [...] MD 06/26/2025 10:08 PM EDT Workstation ID: [id number] Impression: --acute left lower leg/foot cellulitis and wound infection, prior culture July 2024 with ESBL Klebsiella pneumoniae and pseudomonas aeruginosa, pseudomonas was sensitive to Merrem per microbiology lab at [facility]. 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 High risk for further [...] 400-400-40 MG/5ML suspension 15 mL 15 mL PgntP1H PRN Amanda Bermudez MD [Held by provider] [...] Meals Amanda Bermudez MD 1 g at 06/28/25 1721 multivitamin [...] 10 mL Intravenous PRN Ally Jeffers V, CONSTRUCTION COST ESTIMATOR sodium chloride 0.9 % flush 10 mL [...] IVPB-VTB 1,000 mg Intravenous Q12H Osmany Mccann, [facility] 250 mL/hr at 06/28/25 2138 1,000 mg [...] Oral Weekly Duglas Andres MD * Milena Jo, CONSTRUCTION COST ESTIMATOR - 06/28/2025 12:55 PM EDT Images from the original note were not included. [facility] Medicine Services PROGRESS NOTE Patient Name: Trung [...] Lab 06/26/25740 PROTIME 16.7* INR 1.27* Lab 06/26/25740 CHOLESTEROL 154 LDL CHOL 103* HDL CHOL 27* TRIGLYCERIDES 131 Lab 06/26/25740 IRON 14* IRON SATURATION (TSAT) 5* TIBC [...] Urine Culture - Urine, Indwelling Urethral Catheter [[id number]] (Abnormal) Collected: 06/25/252000 Lab Status: Preliminary result Specimen: Urine from Indwelling Urethral Catheter Updated: 06/28/25 1034 Urine Culture >100,000 CFU/mL Proteus species Comment: MICs to follow. Narrative: Colonization of the urinary tract without infection is common. Treatment is discouraged unless the patient is symptomatic, , or undergoing an invasive urologic procedure. Wound Culture - Swab, Foot, Left [[id number]] (Abnormal) (Susceptibility) Collected: 06/25/251817 Lab Status: Preliminary [...] susceptibility Blood Culture - Blood, Hand, Right [[id number]] (Abnormal) (Susceptibility) Collected: 06/25/252029 Lab Status: Preliminary [...] Culture ID, PCR - Blood, Hand, Right [[id number]] (Abnormal) Collected: 06/25/252029 Lab Status: Final result Specimen: Blood from Hand, Right Updated: 06/26/252101 BCID, PCR Enterococcus faecium. Zee/B (vancomycin resistance gene) not detected. Identification byBCID2 PCR. BOTTLE TYPE Anaerobic Bottle Narrative: Infectious disease consultation is highly recommended to rule out distant foci of infection. MRSA Screen, PCR (Inpatient) - Swab, Nares [[id number]] (Abnormal) Collected: 06/26/2545 Lab Status: Final result Specimen: Swab from Nares Updated: 06/26/25 0850 MRSA PCR Positive Narrative: The negative predictive value of this diagnostic test is high and should only be used to consider de-escalating anti-MRSA therapy. A positive result may indicate colonization with MRSA and must be correlated clinically. Gastrointestinal Panel, PCR - Stool, Per Rectum [[id number]] (Abnormal) Collected: 06/26/2545 Lab Status: Final result [...] Clostridioides difficile Toxin - Stool, Per Rectum [[id number]] (Abnormal) Collected: 06/26/2545 Lab Status: Final result Specimen: Stool from Per Rectum Updated: 06/26/25754 Narrative: The following orders were created for panel order Clostridioides difficile Toxin - Stool, Per Rectum. Procedure Abnormality Status --------- ------ Clostridioides difficile...[[id number]] Abnormal Final result Please view results for these tests on the individual orders. Clostridioides difficile Toxin, PCR - Stool, Per Rectum [[id number]] (Abnormal) Collected: 06/26/2545 Lab Status: Final result [...] MD 06/26/2025 10:08 PM EDT Workstation ID: [id number] Results for orders placed during the hospital [...] [I73.9] Yes ??? 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 [...] Support Discussed With: Patient Milena Jo APRN 06/28/25 * Duglas Andres MD - 06/28/2025 7:47 AM EDT Trung Martinez [place] 1955 [id number] Date of Consult: 06/28/2025 Evaluating Physician: Duglas [...] excoriation/crusted areas at the toes, hospitalized at [facility] June 04 untilSe2022 and discharged with oral antibiotics for left lower extremity cellulitis; he alsohas nonhealing wounds at his buttocks 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 Admitted to [facility] June 13 2023 diagnosis of sepsis per admission notes, left lower extremity cellulitis with pressure injury at buttocks. 06/15/24 Dr Colón saw and recommended amputation; patient refused ; see his note for detail 06/17/23 Dr buenrostro discussed potential options for heel debridement with patient; MRI no osteomyelitis per radiology; taken to OR PROCEDURE: Left 39515: Debridement of skin and subcutaneous tissue 42502: wound vacuum-assisted closure, wound measuring 2.5 cm [...] 07/25/[address] Buenrostro PROCEDURE: Left 35581: Debridement of skin and subcutaneous tissue 28580: Wound vacuum-assisted closure culture data with MRSA/aneta. [...] to left CHIP per vascular team d/w ut Procedure/CPT?? Codes: Procedure(s): LLE arteriogram with run-off possible intervention 01/28/24 Dr. 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 Faust in [place] and has seen Dr Oneal (ID in [place]); he is not a good historian with respect to detail. Reports having had some further surgery to the left foot although he is unable to clarify specific date/procedure. Culture at [facility] August 07, 2024 from left foot wound with ESBL Klebsiella pneumoniae and pseudomonas aeruginosa (microbiology lab there reports the Pseudomonas is sensitive to Merrem). He reports his outpatient practitioners had recommended admission to the hospital for IV antibiotics but patient had refused at that time. He also reports that he was in the emergency room at [facility] mid August, no cultures done at that time. Patient reports practitioners at [facility] had recommended higher level amputation but patient has continued to refuse that. He was readmitted to [facility] on August 31, 2024 with worsening odor/drainage andredness/pain to the left lower extremity in recent days/weeks. He reports having been taking outpatient Levaquin; prior history MRSA/PSA and ESBL organisms 09/04/24 Dr Marcano. Procedure/CPT?? Codes: RIGHT AFTER SCHOOL TEACHER access - ultrasound guided Aortogram with LEFT lower extremity run-off LEFT PT angioplasty (4f512jv Nanocross) LEFT plantar angioplasty (4a205eg Nanocross, 2.0h436bg UltraverseRx) LEFT AT angioplasty (7u285yd Nanocross, 2.1l171ld UltraverseRx) LEFT DP angioplasty (6t315tq Nanocross, 2.5a298jf UltraverseRx) RIGHT AFTER SCHOOL TEACHER closure (Angioseal) 09/07/24 Dr Marcano Procedure/CPT?? Codes: RIGHT AFTER SCHOOL TEACHER access - ultrasound guided Aortogram with LEFT lower extremity run-off LEFT Pr AVF embolization RIGHT AFTER SCHOOL TEACHER closure 09/09/24 moved to ICU overnight with [...] TIBIAL ANGIOPLASTY; Surgeon: Archie Olvera MD; Location: [facility]; Service: Vascular; Laterality: N/A; CONTRAST: 50 ML, FT: 2 MIN 54 SEC, DOSE: 66 MGY. BACK SURGERY FOR DISC HERNIATION CARDIAC CATHETERIZATION CARDIAC CATHETERIZATION N/A 09/04/2024 Procedure: Peripheral angiography - Left lower extremity angio - Right femoral access; Surgeon: Jared Marcano MD; Location: [facility]; Service: Peripheral Vascular; Laterality: N/A; CORONARY ANGIOPLASTY WITH STENT PLACEMENT stent x 1 INCISION AND DRAINAGE FOOT Left 06/17/2023 Procedure: LEFT FOOT DEBRIDEMENT WOUND VACUUM ASSISTED CLOSURE; Surgeon: Cecil Buenrostro Jr., MD;Location: [facility]; Service: Orthopedics; Laterality: Left; INCISION AND [...] Laterality: Left; Please coordinate with Gautam Patel ([facility]) [phone] who will bring coils LUMBAR DISCECTOMY N/A [...] VTB Status: Discontinued Ordering Provider: Siobhan, Osmany Tierney, RPH 1,250 mg 200 mL/hr over 75 Minutes Intravenous Every 12 Hours 06/27/25 2100 06/28/25 0724 06/27/25 0856 vancomycin 2500 mg/500 mL 0.9% NS IVPB (S) Ordering Provider: Siobhan, Osmany Tierney, RPH 2,500 mg over 150 Minutes Intravenous Once 06/27/25 0945 06/27/25 1150 06/27/25 0808 vancomycin 2250 mg/500 mL 0.9% NS IVPB (S) Status: Discontinued Ordering Provider: Siobhan Osmany Niall, RPH 2,250 mg over 135 Minutes [...] Duglas Andres MD Placed in Followed by [facility] 125 mg Oral 4 Times [...] Units Date/Time MRI Foot Left Without Contrast [[id number]] Collected: 06/26/252153 Updated: 06/26/252210 Narrative: MRI FOOT [...] MD 06/26/2025 10:08 PM EDT Workstation ID: [id number] CT Angiogram Lower Extremity Left [[id number]] Collected: 06/26/25 0500 Updated: 06/26/25 0511 Narrative: [...] Right lower extremity: Patient is status post wfnah-afo-ofpx amputation. There is mild disease in the AFTER SCHOOL TEACHER and SFA. The PFA is occluded proximally with reconstitution. There is moderate segmental stenosing disease in the remainder of the SFA. 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 PFA is patent. There is mild SFA disease with moderate focal narrowing at the junction of the SFA and popliteal artery. The nyiyd-jpt-qjat popliteal artery appears otherwise widely patent. There [...] the posterior tibial artery. 2.Status post right kryvw-zvh-cutk amputation. There is occlusion of the proximal right PFA with reconstitution. 3.Severe diffuse atrophy in the left lower extremity musculature. 4.Moderate sized fat and sigmoid colon containing left inguinal hernia and small fat-containing right inguinal hernia. 5.Marked urinary bladder wall thickening. Correlate for cystitis. Electronically Signed: Hussain Lyles MD 06/26/2025 5:08 AM EDT Workstation ID: [id number] XR Chest 1 View [[id number]] Collected: 06/26/25411 Updated: 06/26/25415 Narrative: XR CHEST [...] MD 06/26/2025 4:13 AM EDT Workstation ID: [id number] CT Abdomen Pelvis With Contrast [[id number]] Collected: 06/25/251937 Updated: 06/25/252155 Addenda: ADDENDUM #1 [...] Ferraro 06/25/2025 9:53 PM EDT Workstation ID: [id number] ORIGINAL REPORT: CT ABDOMEN PELVIS W CONTRAST [...] Ferraro 06/25/2025 7:55 PM EDT Workstation ID: [id number] Signed: 06/25/252152 by Nehemias Ferraro MD Narrative: [...] Ferraro 06/25/2025 7:55 PM EDT Workstation ID: [id number] XR Foot 3+ View Left [[id number]] Collected: 06/25/251858 Updated: 06/25/251905 Narrative: XR FOOT [...] MD 06/25/2025 7:03 PM EDT Workstation ID: [id number] Impression: --acute left lower leg/foot cellulitis and wound infection, prior culture July 2024 with ESBL Klebsiella pneumoniae and pseudomonas aeruginosa, pseudomonas was sensitive to Merrem per microbiology lab at [facility]. 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 ; readmission May 2025 and [...] 400-400-40 MG/5ML suspension 15 mL 15 mL [id number] PRN Amanda Bermudez MD [Held by provider] [...] 10 mL Intravenous PRN Ally Jeffers V, CONSTRUCTION COST ESTIMATOR sodium chloride 0.9 % flush 10 mL 10 mL Intravenous Q12H Amanda Bermudez MD 10 mL at 06/27/25 2157 sodium chloride 0.9 % flush 10 mL 10 mL Intravenous PRN Amanda Bermudez MD vancomycin (VANCOCIN) 1,000 mg in sodium chloride 0.9 % 250 mL IVPB-VTB 1,000 mg Intravenous Q12H Osmany Mccann [facility] vancomycin (VANCOCIN) capsule 125 mg 125 mg [...] Weekly Duglas Andres MD * Osmany Mccann [facility] - 06/28/2025 7:25 AM EDT Images from [...] Gastrointestinal Panel, PCR - Stool, Per Rectum [[id number]] (Abnormal) Collected: 06/26/25 0046 Lab Status: Final [...] Clostridioides difficile Toxin - Stool, Per Rectum [[id number]] (Abnormal) Collected: 06/26/2545 Lab Status: Final result Specimen: Stool from Per Rectum Updated: 06/26/25754 Narrative: The following orders were created for panel order Clostridioides difficile Toxin - Stool, Per Rectum. Procedure Abnormality Status --------- ------ Clostridioides difficile...[[id number]] Abnormal Final result Please view results for these tests on the individual orders. Clostridioides difficile Toxin, PCR - Stool, Per Rectum [[id number]] (Abnormal) Collected: 06/26/2545 Lab Status: Final result Specimen: Stool from Per Rectum Updated: 06/26/25754 Toxigenic C. difficile by PCR Detected Narrative: DNA from a toxigenic strain of C.difficile has been detected. MRSA Screen, PCR (Inpatient) - Swab, Nares [[id number]] (Abnormal) Collected: 06/26/2545 Lab Status: Final result Specimen: Swab from Nares Updated: 06/26/25 0850 MRSA PCR Positive Narrative: The negative predictive value of this diagnostic test is high and should only be used to consider de-escalating anti-MRSA therapy. A positive result may indicate colonization with MRSA and must be correlated clinically. Clostridioides difficile toxin Ag, Reflex - Stool, Per Rectum [[id number]] (Normal) Collected: 06/26/2545 Lab Status: Final result Specimen: Stool from Per Rectum Updated: 06/26/25 0836 C.diff Toxin Ag Negative Narrative: DNA from a toxigenic strain of C.difficile was detected, although the free toxin itself was not detected. These findings are consistent with C.difficile colonization and may not reflect actual C.difficile infection. Clinical correlation needed. Blood Culture - Blood, Hand, Right [[id number]] (Abnormal) (Susceptibility) Collected: 06/25/252029 Lab Status: Final result Specimen: Blood from Hand, Right Updated: 06/28/25 06 Blood Culture Enterococcus faecium Comment: Infectious disease [...] Culture ID, PCR - Blood, Hand, Right [[id number]] (Abnormal) Collected: 06/25/252029 Lab Status: Final result Specimen: Blood from Hand, Right Updated: 06/26/252101 BCID, PCR Enterococcus faecium. Zee/B (vancomycin resistance gene) not detected. Identification byBCID2 PCR. BOTTLE TYPE Anaerobic Bottle Narrative: Infectious disease consultation is highly recommended to rule out distant foci of infection. Urine Culture - Urine, Indwelling Urethral Catheter [[id number]] (Abnormal) Collected: 06/25/252000 Lab Status: Preliminary result Specimen: Urine from Indwelling Urethral Catheter Updated: 06/27/25 1146 Urine Culture >100,000 CFU/mL Proteus species Narrative: Colonization of the urinary tract without infection is common. Treatment is discouraged unless the patient is symptomatic, , or undergoing an invasive urologic procedure. Blood Culture - Blood, Arm, Left [[id number]] (Normal) Collected: 06/25/25 182 Lab Status: Preliminary result Specimen: Blood from Arm, Left Updated: 06/27/25 1931 Blood Culture No growth at 2 days Wound Culture - Swab, Foot, Left [[id number]] (Abnormal) Collected: 06/25/258 Lab Status: Preliminary result Specimen: Swab from [...] to vancomycin 1000mg q12h Obtain vancomycin level 06/30 am Monitor renal function, clinical status and infusion related reactions Follow vancomycin levels and adjust dose accordingly Osmany Richard RPH 06/28/2025 07:17 EDT * Lupe Albert [...] elderly white male; resting in bed HEENT: [place] conjunctivae, MMM Lungs: Normal respiratory effort Ext: hx right BKA; left foot TMA wound; motor intact; thickened flaky skin Skin: Exposed skin warm Neuro: Follows simple commands Psych: Apropriate mood, talkative Labs: Lab Results (last 24 hours) Procedure Component Value Units Date/Time Wound Culture - Swab, Foot, Left [[id number]] (Abnormal) Collected: 06/25/25 1818 Specimen: Swab from [...] Urine Culture - Urine, Indwelling Urethral Catheter [[id number]] (Abnormal) Collected: 06/25/252000 Specimen: Urine from Indwelling Urethral Catheter Updated: 06/27/25 114 Urine Culture >100,000 CFU/mL Proteus species Narrative: Colonization of the urinary tract without infection is common. Treatment is discouraged unless the patient is symptomatic, , or undergoing an invasive urologic procedure. POC Glucose Once [[id number]] (Normal) Collected: 06/27/25 111 Specimen: Blood Updated: 06/27/25 111 Glucose 130 mg/dL Comment: Serial Number: [id number]: [id number] POC Glucose Finger 4x Daily Before Meals & at Bedtime [[id number]] (Normal) Collected: 06/27/25718 Specimen: Blood from Finger Updated: 06/27/25720 Glucose 102 mg/dL Comment: Serial Number: [id number]: [id number] Blood Culture - Blood, Hand, Right [[id number]] (Abnormal) Collected: 06/25/252029 Specimen: Blood from Hand, Right Updated: 06/27/25 06 Blood Culture Gram Positive Cocci Isolated from Anaerobic Bottle Gram Stain Anaerobic Bottle Gram positive cocci in chains Narrative: Less than seven (7) mL's of blood was collected. Insufficient quantity may yield false negative results. Magnesium [[id number]] (Normal) Collected: 06/27/25399 Specimen: Blood Updated: 06/27/25524 Magnesium 2.2 mg/dL Basic Metabolic Panel [[id number]] (Abnormal) Collected: 06/27/25399 Specimen: Blood Updated: 06/27/25524 Glucose 91 mg/dL BUN 15.3 mg/dL Creatinine [...] race as a factor CBC & Differential [[id number]] (Abnormal) Collected: 06/27/25399 Specimen: Blood Updated: 06/27/25506 Narrative: The following orders were created for panel order CBC & Differential. Procedure Abnormality Status --------- ------ CBC Auto Differential[[id number]] AbnormalFinal result Please view results for these tests on the individual orders. CBC Auto Differential [[id number]] (Abnormal) Collected: 06/27/25399 Specimen: Blood Updated: 06/27/25506 [...] nRBC 0.0 /100 WBC POC Glucose Once [[id number]] (Abnormal) Collected: 06/26/252106 Specimen: Blood Updated: 06/26/252109 Glucose 176 mg/dL Comment: Serial Number: [id number]: [id number] Blood Culture ID, PCR - Blood, Hand, Right [[id number]] (Abnormal) Collected: 06/25/252029 Specimen: Blood from Hand, Right Updated: 06/26/252101 BCID, PCR Enterococcus faecium. Zee/B (vancomycin resistance gene) not detected. Identification byBCID2 PCR. BOTTLE TYPE Anaerobic Bottle Narrative: Infectious disease consultation is highly recommended to rule out distant foci of infection. Blood Culture - Blood, Arm, Left [[id number]] (Normal) Collected: 06/25/251819 Specimen: Blood from Arm, Left Updated: 06/26/251930 Blood Culture No growth at 24 hours POC Glucose Once [[id number]] (Abnormal) Collected: 06/26/25 164 Specimen: Blood Updated: 06/26/25 164 Glucose 193 mg/dL Comment: Serial Number: [id number]: [id number] MRI Foot Left Without Contrast Narrative: MRI [...] MD 06/26/2025 10:08 PM EDT Workstation ID: [id number] Duplex Venous Lower Extremity - Left CAR [...] Right lower extremity: Patient is status post tfsya-sgb-goag amputation. There is mild disease in the [employer]ER and SFA. The PFA is occluded proximally with reconstitution. There is moderate segmental stenosing disease in the remainder of the SFA. 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 PFA is patent. There is mild SFA disease with moderate focal narrowing at the junction of the SFA and popliteal artery. The ihmyb-ipp-xkaf popliteal artery appears otherwise widely patent. There [...] the posterior tibial artery. 2.Status post right rtpur-tam-zsdg amputation. There is occlusion of the proximal right PFA with reconstitution. 3.Severe diffuse atrophy in the left lower extremity musculature. 4.Moderate sized fat and sigmoid colon containing left inguinal hernia and small fat-containing right inguinal hernia. 5.Marked urinary bladder wall thickening. Correlate for cystitis. Electronically Signed: Hussain Lyles MD 06/26/2025 5:08 AM EDT Workstation ID: [id number] XR Chest 1 View Narrative: XR CHEST [...] MD 06/26/2025 4:13 AM EDT Workstation ID: [id number] Assessment - Severe sepsis, POA - LEFT [...] from the original note were not included. [facility] Medicine Services PROGRESS NOTE Patient Name: Trung Pool : 1955 Date of Admission: 06/25/2025 Primary Care Physician: Gustavo Mehta MD Subjective Subjective CC: Follow-up sepsis HPI: Patient states he spoke with Dr Andrse this morning about his infections, asks me [...] No rashes Results Reviewed: LAB RESULTS: Lab 06/27/2539906/26/25 0741 06/26/25 0740 06/25/25 181 WBC 9.98 -- 9.69 9.96 [...] Date/Time Blood Culture - Blood, Hand, Right [[id number]] (Abnormal) Collected: 06/25/252029 Lab Status: Preliminary result Specimen: Blood from Hand, Right Updated: 06/27/25 0618 Blood Culture Gram Positive Cocci Isolated from Anaerobic Bottle Gram Stain Anaerobic Bottle Gram positive cocci in chains Narrative: Less than seven (7) mL's of blood was collected. Insufficient quantity may yield false negative results. Blood Culture ID, PCR - Blood, Hand, Right [[id number]] (Abnormal) Collected: 06/25/252029 Lab Status: Final result Specimen: Blood from Hand, Right Updated: 06/26/252101 BCID, PCR Enterococcus faecium. Zee/B (vancomycin resistance gene) not detected. Identification byBCID2 PCR. BOTTLE TYPE Anaerobic Bottle Narrative: Infectious disease consultation is highly recommended to rule out distant foci of infection. Urine Culture - Urine, Indwelling Urethral Catheter [[id number]] (Abnormal) Collected: 06/25/252000 Lab Status: Preliminary result Specimen: Urine from Indwelling Urethral Catheter Updated: 06/26/25 1401 Urine Culture >100,000 CFU/mL Proteus species Narrative: Colonization of the urinary tract without infection is common. Treatment is discouraged unless the patient is symptomatic, , or undergoing an invasive urologic procedure. MRSA Screen, PCR (Inpatient) - Swab, Nares [[id number]] (Abnormal) Collected: 06/26/2545 Lab Status: Final result Specimen: Swab from Nares Updated: 06/26/25849 MRSA PCR Positive Narrative: The negative predictive value of this diagnostic test is high and should only be used to consider de-escalating anti-MRSA therapy. A positive result may indicate colonization with MRSA and must be correlated clinically. Gastrointestinal Panel, PCR - Stool, Per Rectum [[id number]] (Abnormal) Collected: 06/26/2545 Lab Status: Final result [...] Clostridioides difficile Toxin - Stool, Per Rectum [[id number]] (Abnormal) Collected: 06/26/2545 Lab Status: Final result Specimen: Stool from Per Rectum Updated: 06/26/25754 Narrative: The following orders were created for panel order Clostridioides difficile Toxin - Stool, Per Rectum. Procedure Abnormality Status --------- ------ Clostridioides difficile...[[id number]] Abnormal Final result Please view results for these tests on the individual orders. Clostridioides difficile Toxin, PCR - Stool, Per Rectum [[id number]] (Abnormal) Collected: 06/26/2545 Lab Status: Final result [...] MD 06/26/2025 10:08 PM EDT Workstation ID: [id number] Duplex Venous Lower Extremity - Left CAR [...] Right lower extremity: Patient is status post xldlz-qxt-jxqu amputation. There is mild disease in the [employer]ER and SFA. The PFA is occluded proximally with reconstitution. There is moderate segmental stenosing disease in the remainder of the SFA. 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 PFA is patent. There is mild SFA disease with moderate focal narrowing at the junction of the SFA and popliteal artery. The hhcof-urw-nmyn popliteal artery appears otherwise widely patent. There [...] the posterior tibial artery. 2.Status post right quuyv-rem-dbww amputation. There is occlusion of the proximal right PFA with reconstitution. 3.Severe diffuse atrophy in the left lower extremity musculature. 4.Moderate sized fat and sigmoid colon containing left inguinal hernia and small fat- containing right inguinal hernia. 5.Marked urinary bladder wall thickening. Correlate for cystitis. Electronically Signed: Hussian Lyles MD 06/26/2025 5:08 AM EDT Workstation ID: [id number] XR Chest 1 View Result Date: 06/26/2025 [...] MD 06/26/2025 4:13 AM EDT Workstation ID: [id number] CT Abdomen Pelvis With Contrast Addendum Date: [...] Ferraro 06/25/2025 9:53 PM EDT Workstation ID: [id number] ORIGINAL REPORT: CT ABDOMEN PELVIS W CONTRAST [...] Ferraro 06/25/2025 7:55 PM EDT Workstation ID: [id number] Result Date: 06/25/2025 CT ABDOMEN PELVIS W [...] Ferraro 06/25/2025 7:55 PM EDT Workstation ID: [id number] XR Foot 3+ View Left Result Date: [...] MD 06/25/2025 7:03 PM EDT Workstation ID: [id number] Results for orders placed during the hospital [...] [I73.9] Yes ??? 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 [...] Patient Chinyere Hensley APRN 06/27/25 * Osmany Mccann [facility] - 06/27/2025 8:20 AM EDT Images from [...] Gastrointestinal Panel, PCR - Stool, Per Rectum [[id number]] (Abnormal) Collected: 06/26/25 0046 Lab Status: Final [...] Clostridioides difficile Toxin - Stool, Per Rectum [[id number]] (Abnormal) Collected: 06/26/2545 Lab Status: Final result Specimen: Stool from Per Rectum Updated: 06/26/25754 Narrative: The following orders were created for panel order Clostridioides difficile Toxin - Stool, Per Rectum. Procedure Abnormality Status --------- ------ Clostridioides difficile...[[id number]] Abnormal Final result Please view results for these tests on the individual orders. Clostridioides difficile Toxin, PCR - Stool, Per Rectum [[id number]] (Abnormal) Collected: 06/26/2545 Lab Status: Final result Specimen: Stool from Per Rectum Updated: 06/26/25754 Toxigenic C. difficile by PCR Detected Narrative: DNA from a toxigenic strain of C.difficile has been detected. MRSA Screen, PCR (Inpatient) - Swab, Nares [[id number]] (Abnormal) Collected: 06/26/2545 Lab Status: Final result Specimen: Swab from Nares Updated: 06/26/25 0850 MRSA PCR Positive Narrative: The negative predictive value of this diagnostic test is high and should only be used to consider de-escalating anti-MRSA therapy. A positive result may indicate colonization with MRSA and must be correlated clinically. Clostridioides difficile toxin Ag, Reflex - Stool, Per Rectum [[id number]] (Normal) Collected: 06/26/2545 Lab Status: Final result Specimen: Stool from Per Rectum Updated: 06/26/25 08 C.diff Toxin Ag Negative Narrative: DNA from a toxigenic strain of C.difficile was detected, although the free toxin itself was not detected. These findings are consistent with C.difficile colonization and may not reflect actual C.difficile infection. Clinical correlation needed. Blood Culture - Blood, Hand, Right [[id number]] (Abnormal) Collected: 06/25/252029 Lab Status: Preliminary result Specimen: Blood from Hand, Right Updated: 06/27/25 0618 Blood Culture Gram Positive Cocci Isolated from Anaerobic Bottle Gram Stain Anaerobic Bottle Gram positive cocci in chains Narrative: Less than seven (7) mL's of blood was collected. Insufficient quantity may yield false negative results. Blood Culture ID, PCR - Blood, Hand, Right [[id number]] (Abnormal) Collected: 06/25/252029 Lab Status: Final result Specimen: Blood from Hand, Right Updated: 06/26/252101 BCID, PCR Enterococcus faecium. Zee/B (vancomycin resistance gene) not detected. Identification byBCID2 PCR. BOTTLE TYPE Anaerobic Bottle Narrative: Infectious disease consultation is highly recommended to rule out distant foci of infection. Urine Culture - Urine, Indwelling Urethral Catheter [[id number]] (Abnormal) Collected: 06/25/252000 Lab Status: Preliminary result Specimen: Urine from Indwelling Urethral Catheter Updated: 06/26/25 1401 Urine Culture >100,000 CFU/mL Proteus species Narrative: Colonization of the urinary tract without infection is common. Treatment is discouraged unless the patient is symptomatic, , or undergoing an invasive urologic procedure. Blood Culture - Blood, Arm, Left [[id number]] (Normal) Collected: 06/25/25 1820 Lab Status: Preliminary result Specimen: Blood from Arm, Left Updated: 06/26/25 1931 Blood Culture No growth at 24 hours Wound Culture - Swab, Foot, Left [[id number]] Collected: 06/25/25 1818 Lab Status: Preliminary result [...] AM EDTAssociated Problem(s): 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 * Gautam Tubbs MD - 06/26/2025 10:46 AM EDTAssociated Problem(s): PAD (peripheral artery disease) * Hiro Santillan MD - 06/26/2025 6:28 AM EDT Images from the original note were not included. [facility] Medicine Services PROGRESS NOTE Patient Name: Trung [...] Right lower extremity: Patient is status post qxvdv-rwi-iqjb amputation. There is mild disease in the [employer] S[employer]ER and SFA. The PFA is occluded proximally with reconstitution. There is moderate segmental stenosing disease in the remainder of the SFA. 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 PFA is patent. There is mild SFA disease with moderate focal narrowing at the junction of the SFA and popliteal artery. The ftxqq-srx-xxps popliteal artery appears otherwise widely patent. There [...] the posterior tibial artery. 2.Status post right eudnn-nzf-ajfh amputation. There is occlusion of the proximal right PFA with reconstitution. 3.Severe diffuse atrophy in the left lower extremity musculature. 4.Moderate sized fat and sigmoid colon containing left inguinal hernia and small fat- containing right inguinal hernia. 5.Marked urinary bladder wall thickening. Correlate for cystitis. Electronically Signed: Hussain Lyles MD 06/26/2025 5:08 AM EDT Workstation ID: [id number] XR Chest 1 View Result Date: 06/26/2025 [...] MD 06/26/2025 4:13 AM EDT Workstation ID: [id number] CT Abdomen Pelvis With Contrast Addendum Date: [...] Ferraro 06/25/2025 9:53 PM EDT Workstation ID: [id number] ORIGINAL REPORT: CT ABDOMEN PELVIS W CONTRAST [...] Ferraro 06/25/2025 7:55 PM EDT Workstation ID: [id number] Result Date: 06/25/2025 CT ABDOMEN PELVIS W [...] Ferraro 06/25/2025 7:55 PM EDT Workstation ID: [id number] XR Foot 3+ View Left Result Date: [...] MD 06/25/2025 7:03 PM EDT Workstation ID: [id number] Results for orders placed during the hospital [...] [I73.9] Yes ??? 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 [...] from the original note were not included. [facility] Medicine Services HISTORY AND PHYSICAL [...] LEFT; Surgeon: Cecil Buenrostro Jr., MD; Location: [facility]; Service: Orthopedics; Laterality: Left; ??? ANTERIOR CERVICAL DISCECTOMY W/ FUSION Bilateral 07/17/2020 Procedure: Cervical discectomy anterior with fusion C3-4; Surgeon: Tyree Tan MD; Location:[facility]; Service: Neurosurgery; Laterality: Bilateral; ??? AORTOGRAM N/A 01/26/2024 Procedure: ABDOMINAL AORTIC ANGIOGRAM, LLE ANGIOGRAM, LEFT ANTERIOR TIBIAL ATHERECTOMY, LEFT ANTERIOR TIBIAL ANGIOPLASTY; Surgeon: Archie Olvera MD; Location: [facility]; Service: Vascular; Laterality: N/A; CONTRAST: 50 ML, FT: 2 MIN 54 SEC, DOSE: 66 MGY. ??? BACK SURGERY FOR DISC HERNIATION ??? CARDIAC CATHETERIZATION ??? CARDIAC CATHETERIZATION N/A 09/04/2024 Procedure: Peripheral angiography - Left lower extremity angio - Right femoral access; Surgeon: Jared Marcano MD; Location: [facility]ATH INVASIVE LOCATION; Service: Peripheral Vascular; Laterality: N/A; ??? CORONARY ANGIOPLASTY WITH STENT PLACEMENT stent x 1 ??? INCISION AND DRAINAGE FOOT Left 06/17/2023 Procedure: LEFT FOOT DEBRIDEMENT WOUND VACUUM ASSISTED CLOSURE; Surgeon: Cecil Buenrostro Jr., MD;Location: [facility]; Service: Orthopedics; Laterality: Left; ??? INCISION AND DRAINAGE LEG Left 07/25/2023 Procedure: INCISION AND DRAINAGE HEEL, WOUND VAC; Surgeon: Cecil Buenrostro Jr., MD; Location: [facility]; Service: Orthopedics; Laterality: Left; ??? INTERVENTIONAL RADIOLOGY PROCEDURE N/A 05/02/2019 Procedure: IVC FILTER PLACEMENT; Surgeon: Pedro Zapien MD; Location: [facility]; Service: Interventional Radiology ??? INTERVENTIONAL RADIOLOGY PROCEDURE Left 09/07/2024 Procedure: LEFT peroneal arteriovenous fistula embolization - Right femoral access; Surgeon: Jared Marcano MD; Location: [facility]ASIVE LOCATION; Service: Cardiovascular; Laterality: Left; Please coordinate with Gautam Patel ([facility]) [phone] who will bring coils ??? LUMBAR DISCECTOMY N/A 05/03/2019 Procedure: THORACIC LAMINECTOMY T11-12; Surgeon: Tyree Tan MD; Location: [facility]; Service: Neurosurgery Family History: family history [...] determine due to loaded field 0-2 Specific [place], UA 1.019 1.011 Ketones, UA Negative Negative Blood, UA Large (3+) Large (3+) Leukocytes, UA Large (3+) Large (3+) Nitrite, UA Positive Positive RBC, UA Too Numerous to Count 6-10 WBC, UA Too Numerous to Count Too Numerous to Count Bacteria, UA 4+ 4+ Microbiology Results (last 10 days) Procedure Component Value - Date/Time Wound Culture - Swab, Foot, Left [[id number]] Collected: 06/25/251817 Lab Status: Preliminary result Specimen: [...] Ferraro 06/25/2025 9:53 PM EDT Workstation ID: [id number] ORIGINAL REPORT: CT ABDOMEN PELVIS W CONTRAST [...] Ferraro 06/25/2025 7:55 PM EDT Workstation ID: [id number] Result Date: 06/25/2025 CT ABDOMEN PELVIS W [...] Ferraro 06/25/2025 7:55 PM EDT Workstation ID: [id number] XR Foot 3+ View Left Result Date: [...] MD 06/25/2025 7:03 PM EDT Workstation ID: [id number] Results for orders placed during the hospital [...] hypertension Seizure disorder 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 Type 2 diabetes [...] labs 4. Acute on chronic anemia --H/H 8.9/ MCV 76 patient reported hematuria in the [...] minutes Time spent includes time reviewing chart, pkiv-zj-enfv time, counseling patient/family/caregiver, ordering medications/tests/procedures, communicating with other health emergency care tech, documenting clinical information in the electronic health record, and coordination of care. VTE Prophylaxis: Pharmacologic VTE prophylaxis orders are signed & held. CODE STATUS: Code Status and Medical Interventions: CPR (Attempt to Resuscitate); Full Support Ordered at: 06/25/25 7310 Code Status (Patient has no pulse and [...] stated pt is wanting to go to senior care care with hospice. Pt's first choice is [facility]. Visit made to pt, pt reiterated wants to go to [facility] with hospice, pt aware unlesshas exterminator care insurance, insurance, nor medicare will pay for exterminator care. This underwriter solicitation director is uncertain if pt would qualify for medicaid. Informed pt that the complex case manager will work with pt regarding placement. patient relations liaison will continue to follow. Please call [phone] if can be of further assistance. Discharge [...] LEFT; Surgeon: Cecil Buenrostro Jr., MD; Location: [facility]; Service: Orthopedics; Laterality: Left; ANTERIOR CERVICAL DISCECTOMY W/ FUSION Bilateral 07/17/2020 Procedure: Cervical discectomy anterior with fusion C3-4; Surgeon: Tyree Tan MD; Location:[facility]; Service: Neurosurgery; Laterality: Bilateral; AORTOGRAM N/A 01/26/2024 Procedure: ABDOMINAL AORTIC ANGIOGRAM, LLE ANGIOGRAM, LEFT ANTERIOR TIBIAL ATHERECTOMY, LEFT ANTERIOR TIBIAL ANGIOPLASTY; Surgeon: Archie Olvera MD; Location: [facility]; Service: Vascular; Laterality: N/A; CONTRAST: 50 ML, FT: 2 MIN 54 SEC, DOSE: 66 MGY. AORTOGRAM Left 07/03/2025 Procedure: ARTERIOGRAM LOWER EXTREMITY; Surgeon: Vaughn Hollingsworth DO; Location: [facility]; Service: Vascular; Laterality: Left; FT-6MINS 24SEC 140 MGY CONTRAST -15ML BACK SURGERY FOR DISC HERNIATION CARDIAC CATHETERIZATION CARDIAC CATHETERIZATION N/A 09/04/2024 Procedure: Peripheral angiography - Left lower extremity angio - Right femoral access; Surgeon: Jared Marcano MD; Location: [facility]ASIVE LOCATION; Service: Peripheral Vascular; Laterality: N/A; CORONARY ANGIOPLASTY WITH STENT PLACEMENT stent x 1 INCISION AND DRAINAGE FOOT Left 06/17/2023 Procedure: LEFT FOOT DEBRIDEMENT WOUND VACUUM ASSISTED CLOSURE; Surgeon: Cecil Buenrostro Jr., MD;Location: [facility]; Service: Orthopedics; Laterality: Left; INCISION AND DRAINAGE LEG Left 07/25/2023 Procedure: INCISION AND DRAINAGE HEEL, WOUND VAC; Surgeon: Cecil Buenrostro Jr., MD; Location: [facility]; Service: Orthopedics; Laterality: Left; INCISION AND DRAINAGE LEG Left 07/03/2025 Procedure: DEBRIDEMENT WOUND, PLACEMENT OF WOUND VAC; Surgeon: Vaughn Hollingsworth DO; Location: [facility]; Service: Vascular; Laterality: Left; INTERVENTIONAL RADIOLOGY PROCEDURE N/A 05/02/2019 Procedure: IVC FILTER PLACEMENT; Surgeon: Pedro Zapien MD; Location: [facility]; Service: Interventional Radiology INTERVENTIONAL RADIOLOGY PROCEDURE Left 09/07/2024 Procedure: LEFT peroneal arteriovenous fistula embolization - Right femoral access; Surgeon: Jared Marcano MD; Location: [facility]; Service: Cardiovascular; Laterality: Left; Please coordinate with Gautam Patel ([facility]) [phone] who will bring coils LUMBAR DISCECTOMY N/A 05/03/2019 Procedure: THORACIC LAMINECTOMY T11-12; Surgeon: Tyree Tan MD; Location: [facility]; Service: Neurosurgery Social History: Social History [...] nonepileptic This report is transcribed using the [employer] dictation system. CT Head Without Contrast Result [...] MD 07/03/2025 9:11 PM EDT Workstation ID: [id number] MRI Foot Left Without Contrast Result Date: [...] MD 06/26/2025 10:08 PM EDT Workstation ID: [id number] Duplex Venous Lower Extremity - Left CAR [...] Right lower extremity: Patient is status post kyuci-eno-gulq amputation. There is mild disease in the AFTER SCHOOL TEACHER and SFA. The PFA is occluded proximally with reconstitution. There is moderate segmental stenosing disease in the remainder of the SFA. 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 PFA is patent. There is mild SFA disease with moderate focal narrowing at the junction of the SFA and popliteal artery. The trjod-cqe-asyv popliteal artery appears otherwise widely patent. There [...] the posterior tibial artery. 2.Status post right giiit-cho-kxze amputation. There is occlusion of theproximal right PFA with reconstitution. 3.Severe diffuse atrophy in the left lower extremity musculature. 4.Moderate sized fat and sigmoid colon containing left inguinal hernia and small fat-containing right inguinal hernia. 5.Marked urinary bladder wall thickening. Correlate for cystitis. Electronically Signed: Hussain Lyles MD 06/26/2025 5:08 AM EDT Workstation ID: [id number] XR Chest 1 View Result Date: 06/26/2025 [...] MD 06/26/2025 4:13 AM EDT Workstation ID: [id number] CT Abdomen Pelvis With Contrast Addendum Date: [...] Ferraro 06/25/2025 9:53 PM EDT Workstation ID: [id number] ORIGINAL REPORT: CT ABDOMEN PELVIS W CONTRAST [...] Ferraro 06/25/2025 7:55 PM EDT Workstation ID: [id number] Result Date: 06/25/2025 CT ABDOMEN PELVIS W [...] Nehemias Ferraro 06/25/2025 7:55 PMEDT Workstation ID: [id number] XR Foot 3+ View Left Result Date: [...] MD 06/25/2025 7:03 PM EDT Workstation ID: [id number] During this visit the following were done: [...] the hospice contact number for hospice @ [facility]. Hospice will continue to follow. Please note that home/out pt hospice will be out of the office on 07/08/25 & will return on 07/09/25. * Cesar Leos - 07/05/2025 2:01 PM EDTAssociated Order(s): IP CONSULT TO SPIRITUAL CARE Seeing patient per Palliative Care consult. Patient familiar to this manager configuration from previous hospitalizations. Patient may need to have other leg amputated. Active listening and spiritual presence provided during manager configuration encounter. Patient asked for/received prayer. Charge Poster will follow-up with patient during first shift [...] Salazar (sister) Goals of Care: TBD. HPI: Turng Pool is a 70 y.o. male with PMH significant for CAD, PAD, T2DM, Right BKA, LLE revascularization and toe amputation, seizures. Patient presented to [facility] ED on 06/25 with blood in urine, [...] LEFT; Surgeon: Cecil Buenrostro Jr., MD; Location: [facility]; Service: Orthopedics; Laterality: Left; ANTERIOR CERVICAL DISCECTOMY W/ FUSION Bilateral 07/17/2020 Procedure: Cervical discectomy anterior with fusion C3-4; Surgeon: Tyree Tan MD; Location: [facility]; Service: Neurosurgery; Laterality: Bilateral; AORTOGRAM N/A 01/26/2024 Procedure: ABDOMINAL AORTIC ANGIOGRAM, LLE ANGIOGRAM, LEFT ANTERIOR TIBIAL ATHERECTOMY, LEFT ANTERIOR TIBIAL ANGIOPLASTY; Surgeon: Archie Olvera MD; Location: [facility]; Service: Vascular; Laterality: N/A; CONTRAST: 50 ML, FT: 2 MIN 54 SEC, DOSE: 66 MGY. AORTOGRAM Left 07/03/2025 Procedure: ARTERIOGRAM LOWER EXTREMITY; Surgeon: Vaughn Hollingsworth DO; Location: [facility]; Service: Vascular; Laterality: Left; FT-6MINS 24SEC 140 MGY CONTRAST -15ML BACK SURGERY FOR DISC HERNIATION CARDIAC CATHETERIZATION CARDIAC CATHETERIZATION N/A 09/04/2024 Procedure: Peripheral angiography - Left lower extremity angio - Right femoral access; Surgeon: Jared Marcano MD; Location: [facility]; Service: Peripheral Vascular; Laterality: [...] Service: Cardiovascular; Laterality: Left; Please coordinate with Gauatm Patel ([facility] [phone] who will bring coils LUMBAR DISCECTOMY N/A 05/03/2019 Procedure: THORACIC LAMINECTOMY T11-12; Surgeon: Tyree Tan MD; Location: [facility]; Service: Neurosurgery Social History Socioeconomic History [...] last 7 days Lab Units 07/04/25 0347 WBC 10*3/mm3 8.21 HEMOGLOBIN g/dL 9.3* HEMATOCRIT [...] Value Units Date/Time CT Head Without Contrast [[id number]] Collected: 07/03/252109 Updated: 07/03/252113 Narrative: CT HEAD [...] MD 07/03/2025 9:11 PM EDT Workstation ID: [id number] XR [place] [facility] Procedure [[id number]] Resulted: 07/03/251543 Updated: 07/03/251543 Diagnostics: Reviewed A: Gastroenteritis due to norovirus Primary hypertension Seizure disorder 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 PAD (peripheral artery [...] 7:40 AM EDT Trung Martinez Corine 1955 [id number] Date of Consult: 06/27/2025 Evaluating Physician: Duglas [...] excoriation/crusted areas at the toes, hospitalized at [facility] June 04 untilSept2022 and discharged with oral antibiotics for left lower extremity cellulitis; he alsohas nonhealing wounds at his buttocks 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 Admitted to [facility] June 13 2023 diagnosis of sepsis per admission notes, left lower extremity cellulitis with pressure injury at buttocks. 06/15/24 Dr Colón saw and recommended amputation; patient refused ; see his note for detail 06/17/23 Dr buenrostro discussed potential options for heel debridement with patient; MRI no osteomyelitis per radiology; taken to OR PROCEDURE: Left 81692: Debridement of skin and subcutaneous tissue 09153: wound vacuum-assisted closure, wound measuring 2.5 cm [...] 07/25/[address] Buenrostro PROCEDURE: Left 21118: Debridement of skin and subcutaneous tissue 25135: Wound vacuum-assisted closure culture data with MRSA/aneta. [...] to left CHIP per vascular team d/w ut Procedure/CPT?? Codes: Procedure(s): LLE arteriogram with run-off possible intervention 01/28/24 Dr. 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 Faust in [place] and has seen Dr Oneal (ID in [place]); he is not a good historian with respect to detail. Reports having had some further surgery to the left foot although he is unable to clarify specific date/procedure. Culture at [facility] August 07, 2024 from left foot wound with ESBL Klebsiella pneumoniae and pseudomonas aeruginosa (microbiology lab there reports the Pseudomonas is sensitive to Merrem). He reports his outpatient practitioners had recommended admission to the hospital for IV antibiotics but patient had refused at that time. He also reports that he was in the emergency room at [facility] mid August, no cultures done at that time. Patient reports practitioners at [facility] had recommended higher level amputation but patient has continued to refuse that. He was readmitted to [facility] on August 31, 2024 with worsening odor/drainage andredness/pain to the left lower extremity in recent days/weeks. He reports having been taking outpatient Levaquin; prior history MRSA/PSA and ESBL organisms 09/04/24 Dr Marcano. Procedure/CPT?? Codes: RIGHT AFTER SCHOOL TEACHER access - ultrasound guided Aortogram with LEFT lower extremity run-off LEFT PT angioplasty (9y346ai Nanocross) LEFT plantar angioplasty (3k661pf Nanocross, 2.3o023yo UltraverseRx) LEFT AT angioplasty (6j641cx Nanocross, 2.3y827xs UltraverseRx) LEFT DP angioplasty (0h817bd Nanocross, 2.6t259rr UltraverseRx) RIGHT AFTER SCHOOL TEACHER closure (Angioseal) 09/07/24 Dr Marcano Procedure/CPT?? Codes: RIGHT AFTER SCHOOL TEACHER access - ultrasound guided Aortogram with LEFT lower extremity run-off LEFT Pr AVF embolization RIGHT AFTER SCHOOL TEACHER closure 09/09/24 moved to ICU overnight with [...] Cecil Buenrostro Jr., MD; Location: [facility]; Service: Orthopedics; Laterality: Left; ANTERIOR CERVICAL DISCECTOMY [...] femoral access; Surgeon: Jared Marcano MD; Location: [facility]; Service: Peripheral Vascular; Laterality: N/A; CORONARY ANGIOPLASTY WITH STENT PLACEMENT stent x 1 INCISION AND DRAINAGE FOOT Left 06/17/2023 Procedure: LEFT FOOT DEBRIDEMENT WOUND VACUUM ASSISTED CLOSURE; Surgeon: Cecil Buenrostro Jr., MD;Location: [facility]; Service: Orthopedics; Laterality: Left; INCISION AND DRAINAGE LEG Left 07/25/2023 Procedure: INCISION AND DRAINAGE HEEL, WOUND VAC; Surgeon: Cecil Buenrostro Jr., MD; Location: [facility]; Service: Orthopedics; Laterality: Left; INTERVENTIONAL RADIOLOGY PROCEDURE N/A 05/02/2019 Procedure: IVC FILTER PLACEMENT; Surgeon: Pedro Zapien MD; Location: [facility]; Service: Interventional Radiology INTERVENTIONAL RADIOLOGY PROCEDURE Left 09/07/2024 Procedure: LEFT peroneal arteriovenous fistula embolization - Right femoral access; Surgeon: Jared Marcano MD; Location: [facility]; Service: Cardiovascular; Laterality: Left; Please coordinate with Gautam Patel ([facility]) [phone] who will bring coils LUMBAR DISCECTOMY N/A [...] Units Date/Time MRI Foot Left Without Contrast [[id number]] Collected: 06/26/252153 Updated: 06/26/252210 Narrative: MRI FOOT [...] MD 06/26/2025 10:08 PM EDT Workstation ID: [id number] CT Angiogram Lower Extremity Left [[id number]] Collected: 06/26/25 0500 Updated: 06/26/25 0511 Narrative: [...] Right lower extremity: Patient is status post cnqjk-idd-hgwg amputation. There is mild disease in the AFTER SCHOOL TEACHER and SFA. The PFA is occluded proximally with reconstitution. There is moderate segmental stenosing disease in the remainder of the SFA. 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 PFA is patent. There is mild SFA disease with moderate focal narrowing at the junction of the SFA and popliteal artery. The viizx-aha-yrdd popliteal artery appears otherwise widely patent. There [...] the posterior tibial artery. 2.Status post right ldxrz-dbc-dbin amputation. There is occlusion of the proximal right PFA with reconstitution. 3.Severe diffuse atrophy in the left lower extremity musculature. 4.Moderate sized fat and sigmoid colon containing left inguinal hernia and small fat-containing right inguinal hernia. 5.Marked urinary bladder wall thickening. Correlate for cystitis. Electronically Signed: Hussain Lyles MD 06/26/2025 5:08 AM EDT Workstation ID: [id number] XR Chest 1 View [[id number]] Collected: 06/26/25411 Updated: 06/26/25415 Narrative: XR CHEST [...] MD 06/26/2025 4:13 AM EDT Workstation ID: [id number] CT Abdomen Pelvis With Contrast [[id number]] Collected: 06/25/251937 Updated: 06/25/252155 Addenda: ADDENDUM #1 [...] Ferraro 06/25/2025 9:53 PM EDT Workstation ID: [id number] ORIGINAL REPORT: CT ABDOMEN PELVIS W CONTRAST [...] Ferraro 06/25/2025 7:55 PM EDT Workstation ID: [id number] Signed: 06/25/252152 by Nehemias Ferraro MD Narrative: [...] Ferraro 06/25/2025 7:55 PM EDT Workstation ID: [id number] XR Foot 3+ View Left [[id number]] Collected: 06/25/251858 Updated: 06/25/251905 Narrative: XR FOOT [...] MD 06/25/2025 7:03 PM EDT Workstation ID: [id number] Impression: --acute left lower leg/foot cellulitis and wound infection, prior culture July 2024 with ESBL Klebsiella pneumoniae and pseudomonas aeruginosa, pseudomonas was sensitive to Merrem per microbiology lab at [facility]. 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 ; readmission May 2025 and [...] 400-400-40 MG/5ML suspension 15 mL 15 mL [id number] PRN Amanda Bermudez MD [Held by provider] [...] AC Arnoldo Crews, PharmD 20 mg at 06/26/25 1710 finasteride (PROSCAR) [...] flush 10 mL 10 mL Intravenous PRN ZeyadEssiepantera Pryor, CONSTRUCTION COST ESTIMATOR sodium chloride 0.9 % flush 10 mL 10 mL Intravenous Q12H Amanda Bermudez MD 10 mL at 06/26/252137 sodium chloride 0.9 % flush 10 mL [...] - General (Adolescent Medicine) Kj Rothman DO ([facility]) Reason for Hospitalization: sepsis due [...] LEFT; Surgeon: Cecil Buenrostro Jr., MD; Location: [facility]; Service: Orthopedics; Laterality: Left; ANTERIOR CERVICAL DISCECTOMY W/ FUSION Bilateral 07/17/2020 Procedure: Cervical discectomy anterior with fusion C3-4; Surgeon: Tyree Tan MD; Location:[facility]; Service: Neurosurgery; Laterality: Bilateral; AORTOGRAM N/A 01/26/2024 Procedure: ABDOMINAL AORTIC ANGIOGRAM, LLE ANGIOGRAM, LEFT ANTERIOR TIBIAL ATHERECTOMY, LEFT ANTERIOR TIBIAL ANGIOPLASTY; Surgeon: Archie Olvera MD; Location: [facility]; Service: Vascular; Laterality: N/A; CONTRAST: 50 ML, FT: 2 MIN 54 SEC, DOSE: 66 MGY. BACK SURGERY FOR DISC HERNIATION CARDIAC CATHETERIZATION CARDIAC CATHETERIZATION N/A 09/04/2024 Procedure: Peripheral angiography - Left lower extremity angio - Right femoral access; Surgeon: Jared Marcano MD; Location: [facility]; Service: Peripheral Vascular; Laterality: N/A; CORONARY ANGIOPLASTY WITH STENT PLACEMENT stent x 1 INCISION AND DRAINAGE FOOT Left 06/17/2023 Procedure: LEFT FOOT DEBRIDEMENT WOUND VACUUM ASSISTED CLOSURE; Surgeon: Cecil Buenrostro Jr., MD;Location: [facility]; Service: Orthopedics; Laterality: Left; INCISION AND DRAINAGE LEG Left 07/25/2023 Procedure: INCISION AND DRAINAGE HEEL, WOUND VAC; Surgeon: Cecil Buenrostro Jr., MD; Location: [facility]; Service: Orthopedics; Laterality: Left; INTERVENTIONAL RADIOLOGY PROCEDURE N/A 05/02/2019 Procedure: IVC FILTER PLACEMENT; Surgeon: Pedro Zapien MD; Location: [facility]; Service: Interventional Radiology INTERVENTIONAL RADIOLOGY PROCEDURE Left 09/07/2024 Procedure: LEFT peroneal arteriovenous fistula embolization - Right femoral access; Surgeon: Jared Marcano MD; Location: [facility]; Service: Cardiovascular; Laterality: Left; Please coordinate with Gautam Patel ([facility]) [phone] who will bring coils LUMBAR DISCECTOMY N/A 05/03/2019 Procedure: THORACIC LAMINECTOMY T11-12; Surgeon: Tyree Tan MD; Location: [facility]; Service: Neurosurgery Family History: Family History Problem Relation Age of Onset Alcohol abuse Father Social History: Social History[1] Medications: Current Medications[2] Allergies: Allergies[3] Problem: Gastroenteritis due to norovirus Primary hypertension Seizure disorder 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 PAD (peripheral artery [...] the posterior tibial artery. 2.Status post right fsamz-kax-wzbr amputation. There is occlusion of theproximal right PFA with reconstitution. 3.Severe diffuse atrophy in the left lower extremity musculature. 4.Moderate sized fat and sigmoid colon containing left inguinal hernia and small fat-containing right inguinal hernia. 5.Marked urinary bladder wall thickening. Correlate for cystitis. Electronically Signed: Hussain Lyles MD 06/26/2025 5:08 AM EDT Workstation ID: [id number] XR Chest 1 View Result Date: 06/26/2025 Cardiomegaly with possible mild right basilar atelectasis. Electronically Signed: Brent Lubin MD 06/26/2025 4:13 AM EDT Workstation ID: [id number] CT Abdomen Pelvis With Contrast Addendum Date: [...] Ferraro 06/25/2025 9:53 PM EDT Workstation ID: [id number] ORIGINAL REPORT: CT ABDOMEN PELVIS W CONTRAST [...] Ferraro 06/25/2025 7:55 PM EDT Workstation ID: [id number] Result Date: 06/25/2025 Impression: 1.[place] [...] Nehemias Ferraro 06/25/2025 7:55 PMEDT Workstation ID: [id number] XR Foot 3+ View Left Result Date: 06/25/2025 Impression: Marked soft tissue swelling at the stump and dorsum of the foot suggest cellulitis.. Small shallow soft tissue ulceration distal dorsum of the foot No acute osseous abnormality. If there is concern for osteomyelitis MRI is recommended. Electronically Signed: Duglas Lay MD 06/25/2025 7:03 PM EDT Workstation ID: [id number] CT Abdomen Pelvis With Contrast Result Date: 06/02/2025 Shaggy urinary bladder wall thickening concerning for cystitis. Locules of gas within the urinary bladder concerning for a gas-forming organism. Electronically Signed: Feliciano Garcia MD 06/02/2025 12:22PM EDT Workstation ID: [id number] XR Chest 1 View Result Date: 06/02/2025 Impression: Stable appearance of the chest without focal airspace consolidation. Electronically Signed: Rony Monsalve MD 06/02/2025 10:45 AM EDT Workstation ID: [id number] Results Review: I reviewed the patient's new clinical results. Imaging Results (Last 72 Hours) Procedure Component Value Units Date/Time CT Angiogram Lower Extremity Left [[id number]] Collected: 06/26/25 0500 Updated: 06/26/25 05 Narrative: [...] Right lower extremity: Patient is status post riatw-mkz-erkx amputation. There is mild disease in the AFTER SCHOOL TEACHER and SFA. The PFA is occluded proximally with reconstitution. There is moderate segmental stenosing disease in the remainder of the SFA. 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 PFA is patent. There is mild SFA disease with moderate focal narrowing at the junction of the SFA and popliteal artery. The bpzxd-mao-jutv popliteal artery appears otherwise widely patent. There [...] the posterior tibial artery. 2.Status post right kdcut-vbn-fbcl amputation. There is occlusion of the proximal right PFA with reconstitution. 3.Severe diffuse atrophy in the left lower extremity musculature. 4.Moderate sized fat and sigmoid colon containing left inguinal hernia and small fat-containing right inguinal hernia. 5.Marked urinary bladder wall thickening. Correlate for cystitis. Electronically Signed: Hussain Lyles MD 06/26/2025 5:08 AM EDT Workstation ID: [id number] XR Chest 1 View [[id number]] Collected: 06/26/25411 Updated: 06/26/25415 Narrative: XR CHEST [...] MD 06/26/2025 4:13 AM EDT Workstation ID: [id number] CT Abdomen Pelvis With Contrast [[id number]] Collected: 06/25/251937 Updated: 06/25/252155 Addenda: ADDENDUM #1 [...] Ferraro 06/25/2025 9:53 PM EDT Workstation ID: [id number] ORIGINAL REPORT: CT ABDOMEN PELVIS W CONTRAST [...] Ferraro 06/25/2025 7:55 PM EDT Workstation ID: [id number] Signed: 06/25/25 2153 by Nehemias Ferraro MD [...] Ferraro 06/25/2025 7:55 PM EDT Workstation ID: [id number] XR Foot 3+ View Left [[id number]] Collected: 06/25/251858 Updated: 06/25/251905 Narrative: XR FOOT [...] MD 06/25/2025 7:03 PM EDT Workstation ID: [id number] Assessment / Plan Assessment/Plan: 70 yo M with urologic hx significant for BPH, urinary retention requiring chronic indwelling de los santos for the last year. He has had gross hematuria within the last 6 weeks, possibly due to UTI vs traumatic de [place] santos manipulation. Other hx includes HLD, HTN, migraines, ND, neuropathy, PAD, T2DM, falls, andcellulitis. Patient is [...] follow up in coming weeks to discuss half-way bladder management. I discussed the patients findings and my recommendations with the patient. Time: Total qnya-uw-sdxj/floor time: 45 Minutes Eloise Smiley MD 06/26/25 [...] injection 5,000 Units, 5,000 Units, Subcutaneous, Q8H, AlbertSofia kessler CONSTRUCTION COST ESTIMATOR, 5,000 Units at 06/26/25 1402 insulin glargine [...] Sublingual, Q5 Min PRN, Amanda Bermudez MD ondansetron (ZOFRAN) injection 4 mg, 4 mg, Intravenous, Q6H PRN, Amanda Bermudez MD oxyCODONE-acetaminophen (PERCOCET) 5-325 MG per tablet 1 tablet, 1 tablet, Oral, Q6H PRN, Hiro Santillan MD, 1 tablet at 06/26/25 1402 Phosphorus Replacement - Follow Nurse / BPA Driven Protocol, , Not Applicable, Aidan BEAR Jennifer, MD Potassium Replacement - Follow Nurse / BPA Driven Protocol, , Not Applicable, CHEMA, Amanda Bermudez MD sacubitril-valsartan (ENTRESTO) 24-26 MG tablet 1 tablet, 1 tablet, Oral, BID, Amanda Bermudez MD, 1 tablet at 06/26/25 0843 Insert Peripheral IV, , , Once AND sodium chloride 0.9 % flush 10 mL, 10 mL, Intravenous, PRN, Ally Jeffers V, CONSTRUCTION COST ESTIMATOR sodium chloride 0.9 % flush 10 mL, [...] history of hyperlipidemia, hypertension, migraines, history of ND, peripheral neuropathy, PAD, diabetes mellitus type 2, [...] elderly white male; resting in bed HEENT: [place] conjunctivae, MMM Neck: Supple Lungs: Normal respiratory [...] Units Date/Time CT Angiogram Lower Extremity Left [[id number]] Collected: 06/26/25 050 Updated: 06/26/25 05 Narrative: CT ANGIOGRAM LOWER [...] Right lower extremity: Patient is status post bepvg-prp-fpuh amputation. There is mild disease in the AFTER SCHOOL TEACHER and SFA. The PFA is occluded proximally with reconstitution. There is moderate segmental stenosing disease in the remainder of the SFA. 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 PFA is patent. There is mild SFA disease with moderate focal narrowing at the junction of the SFA and popliteal artery. The trtgp-lnz-xuzg popliteal artery appears otherwise widely patent. There [...] the posterior tibial artery. 2.Status post right vcyzx-hnw-jsnu amputation. There is occlusion of the proximal right PFA with reconstitution. 3.Severe diffuse atrophy in the left lower extremity musculature. 4.Moderate sized fat and sigmoid colon containing left inguinal hernia and small fat-containing right inguinal hernia. 5.Marked urinary bladder wall thickening. Correlate for cystitis. Electronically Signed: Hussain Lyles MD 06/26/2025 5:08 AM EDT Workstation ID: [id number] XR Chest 1 View [[id number]] Collected: 10/14/25 0412 Updated: 06/26/25415 Narrative: XR [...] MD 06/26/2025 4:13 AM EDT Workstation ID: [id number] CT Abdomen Pelvis With Contrast [[id number]] Collected: 06/25/251937 Updated: 06/25/252155 Addenda: ADDENDUM #1 [...] Ferraro 06/25/2025 9:53 PM EDT Workstation ID: [id number] ORIGINAL REPORT: CT ABDOMEN PELVIS W CONTRAST [...] Ferraro 06/25/2025 7:55 PM EDT Workstation ID: [id number] Signed: 06/25/252152 by Nehemias Ferraro MD Narrative: [...] Ferraro 06/25/2025 7:55 PM EDT Workstation ID: [id number] XR Foot 3+ View Left [[id number]] Collected: 06/25/251858 Updated: 06/25/251905 Narrative: XR FOOT [...] MD 06/25/2025 7:03 PM EDT Workstation ID: [id number] Lab Results (last 48 hours) Procedure Component Value Units Date/Time Wound Culture - Swab, Foot, Left [[id number]] Collected: 06/25/251817 Specimen: Swab from Foot, Left Updated: 06/26/25 101 Wound Culture Growth present, too young to evaluate Gram Stain Few (2+) WBCs seen Few (2+) Gram positive cocci in pairs, chains and clusters Few (2+) Gram negative bacilli TSH Rfx On Abnormal To Free T4 [[id number]] (Normal) Collected: 06/26/25740 Specimen: Blood Updated: 06/26/25946 TSH 0.340 uIU/mL Ferritin [[id number]] (Normal) Collected: 06/26/25740 Specimen: Blood Updated: 06/26/25946 Ferritin 108.00 ng/mL Narrative: Results may be falsely decreased if patient taking Biotin. Comprehensive Metabolic Panel [[id number]] (Abnormal) Collected: 06/26/25740 Specimen: Blood Updated: 06/26/25946 [...] not include race as a factor Magnesium [[id number]] (Normal) Collected: 06/26/25740 Specimen: Blood Updated: 06/26/25946 Magnesium 1.8 mg/dL Phosphorus [[id number]] (Normal) Collected: 06/26/25740 Specimen: Blood Updated: 06/26/25946 Phosphorus 2.9 mg/dL Lipid Panel [[id number]] (Abnormal) Collected: 06/26/25740 Specimen: Blood Updated: 06/26/25946 [...] calculated using the NIH LDL-C calculation. CK [[id number]] (Normal) Collected: 06/26/25740 Specimen: Blood Updated: 06/26/25946 Creatine Kinase 59 U/L Iron Profile w/o Ferritin [[id number]] (Abnormal) Collected: 06/26/25740 Specimen: Blood Updated: 06/26/25946 Iron 14 mcg/dL Iron Saturation (TSAT) 5 % Transferrin 172 mg/dL TIBC 256 mcg/dL Hemoglobin A1c [[id number]] (Abnormal) Collected: 06/26/25740 Specimen: Blood Updated: 06/26/25945 Hemoglobin A1C 7.82 % Narrative: Hemoglobin A1C Ranges: Increased Risk for Diabetes 5.7% to 6.4% Diabetes >= 6.5% Diabetic Goal < 7.0% Lactic Acid, Plasma [[id number]] (Normal) Collected: 06/26/25740 Specimen: Blood Updated: 06/26/25940 Lactate 1.2 mmol/L Comment: Falsely depressed results may occur on samples drawn from patients receiving N-Acetylcysteine (NAC) or Metamizole. Protime-INR [[id number]] (Abnormal) Collected: 06/26/25740 Specimen: Blood Updated: 06/26/25930 Protime 16.7 Seconds INR 1.27 CBC Auto Differential [[id number]] (Abnormal) Collected: 06/26/25739 Specimen: Blood Updated: 06/26/25916 [...] 10*3/mm3 nRBC 0.0 /100 WBC Vitamin B12 [[id number]] Collected: 06/26/25 0741 Specimen: Blood Updated: 06/26/25 0912 MRSA Screen, PCR (Inpatient) - Swab, Nares [[id number]] (Abnormal) Collected: 06/26/2545 Specimen: Swab from Nares Updated: 06/26/25 0850 MRSA PCR Positive Narrative: The negative predictive value of this diagnostic test is high and should only be used to consider de-escalating anti-MRSA therapy. A positive result may indicate colonization with MRSA and must be correlated clinically. Gastrointestinal Panel, PCR - Stool, Per Rectum [[id number]] (Abnormal) Collected: 06/26/2545 Specimen: Stool from Per [...] toxin Ag, Reflex - Stool, Per Rectum [[id number]] (Normal) Collected: 06/26/2545 Specimen: Stool from Per Rectum Updated: 06/26/25 0836 C.diff Toxin Ag Negative Narrative: DNA from a toxigenic strain of C.difficile was detected, although the free toxin itself was not detected. These findings are consistent with C.difficile colonization and may not reflect actual C.difficile infection. Clinical correlation needed. Clostridioides difficile Toxin - Stool, Per Rectum [[id number]] (Abnormal) Collected: 06/26/2545 Specimen: Stool from Per Rectum Updated: 06/26/25 0755 Narrative: The following orders were created for panel order Clostridioides difficile Toxin - Stool, Per Rectum. Procedure Abnormality Status --------- ------ Clostridioides difficile...[[id number]] Abnormal Final result Please view results for these tests on the individual orders. Clostridioides difficile Toxin, PCR - Stool, Per Rectum [[id number]] (Abnormal) Collected: 06/26/25 0046 Specimen: Stool from Per Rectum Updated: 06/26/25754 Toxigenic C. difficile by PCR Detected Narrative: DNA from a toxigenic strain of C.difficile has been detected. POC Glucose Once [[id number]] (Normal) Collected: 06/26/25 0557 Specimen: Blood Updated: 06/26/25 0600 Glucose 119 mg/dL Comment: Serial Number: [id number]: [id number] Blood Culture - Blood, Hand, Right [[id number]] Collected: 06/25/252029 Specimen: Blood from Hand, Right Updated: 06/26/25 032 POC Glucose Once [[id number]] (Normal) Collected: 06/26/2550 Specimen: Blood Updated: 06/26/25 0054 Glucose 83 mg/dL Comment: Serial Number: [id number]: [id number] Urinalysis, Microscopic Only - Indwelling Urethral Catheter [[id number]] (Abnormal) Collected: 06/25/252000 Specimen: Urine from Indwelling Urethral Catheter Updated: 06/25/252028 RBC, UA 6-10 /HPF WBC, UA Too Numerous to Count /HPF Bacteria, UA 4+ /HPF Squamous Epithelial Cells, UA 0-2 /HPF Yeast, UA Moderate/2+ Budding Yeast /HPF Hyaline Casts, UA 7-12 /LPF Methodology Manual Light Microscopy Urine Culture - Urine, Indwelling Urethral Catheter [[id number]] Collected: 06/25/252000 Specimen: Urine from Indwelling Urethral Catheter Updated: 06/25/252028 Urinalysis With Culture If Indicated - Indwelling Urethral Catheter [[id number]] (Abnormal) Collected: 06/25/252000 Specimen: Urine from Indwelling Urethral Catheter Updated: 06/25/252019 Color, UA Yellow Appearance, UA Turbid pH, UA 6.0 Specific [place], UA 1.011 Glucose, UA Negative Ketones, UA Negative Bilirubin, UA Negative Blood, UA Large (3+) Protein, UA Trace Leuk Esterase, UA Large (3+) Nitrite, UA Positive Urobilinogen, UA 0.2 E.U./dL Narrative: In absence of clinical symptoms, the presence of pyuria, bacteria, and/or nitrites on the urinalysis result does not correlate with infection. Blood Culture - Blood, Arm, Left [[id number]] Collected: 06/25/251819 Specimen: Blood from Arm, Left Updated: 06/25/251915 Comprehensive Metabolic Panel [[id number]] (Abnormal) Collected: 06/25/251816 Specimen: Blood Updated: 06/25/251902 [...] not include race as a factor Procalcitonin [[id number]] (Normal) Collected: 06/25/251816 Specimen: Blood Updated: 06/25/251902 [...] Day 4 values are available. Refer to http://www.sopydo-yip-dhhmtosorl.com Change in PCT <=80% A decrease of [...] severe sepsis or septic shock. C-reactive Protein [[id number]] (Abnormal) Collected: 06/25/251816 Specimen: Blood Updated: 06/25/251902 C-Reactive Protein 4.34 mg/dL Lactic Acid, Plasma [[id number]] (Normal) Collected: 06/25/251816 Specimen: Blood Updated: 06/25/251854 Lactate 1.7 mmol/L Comment: Falsely depressed results may occur on samples drawn from patients receiving N-Acetylcysteine (NAC) or Metamizole. CBC & Differential [[id number]] (Abnormal) Collected: 06/25/251816 Specimen: Blood Updated: 06/25/251833 Narrative: The following orders were created for panel order CBC & Differential. Procedure Abnormality Status --------- ------ CBC Auto Differential[[id number]] AbnormalFinal result Please view results for these tests on the individual orders. CBC Auto Differential [[id number]] (Abnormal) Collected: 06/25/251816 Specimen: Blood Updated: 10/13/25 1834 WBC 9.96 10*3/mm3 RBC 3.91 10*6/mm3 Hemoglobin [...] concerns Signed: Electronically signed by Lupe Albert, CONSTRUCTION COST ESTIMATOR 06/26/25 [1] Medications Prior to Admission Medication [...] and MST 2-3 or Nursing Admission Screen [facility] Clinical Nutrition Assessment Subjective Subjective [...] LEFT; Surgeon: Cecil Buenrostro Jr., MD; Location: [facility]; Service: Orthopedics; Laterality: Left; ANTERIOR CERVICAL [...] Laterality: Left; Please coordinate with Gautam Patel ([facility]) [phone] who will bring coils LUMBAR DISCECTOMY N/A 05/03/2019 Procedure: THORACIC LAMINECTOMY T11-12; Surgeon: Tyree Tan MD; Location: [facility]; Service: Neurosurgery Current Problems Admission Diagnosis: Cellulitis [L03.90] Problem List: Severe sepsis Primary hypertension Seizure disorder 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 PAD (peripheral artery [...] Intake & Output (last 3 days) 06/23 0701 06/24 0700 06/24 0701 06/25 0700 06/25 0701 06/26 0700 06/26 0701 06/27 0700 I.V. (mL/kg) 250 (2.2) 3075 (27) [...] days and prn Electronically signed by: Annie Huber, ,RD,LD 06/26/25 10:15 EDT * Gautam Tubbs MD - 06/26/2025 8:49 AM EDTAssociated Order(s): IP CONSULT TO GENERAL SURGERY GENERAL SURGERY CONSULT NOTE Date of Service: 06/26/2025 Trung Pool [id number] 1955 Referring Provider: Hiro Santillan MD Location of Consult: N Reason for Consultation: bilateral asymptomatic inguinal hernias Hospital Problem List: ICD-10-CM ICD-9-CM 1. Cellulitis of left lower extremity L03.116 682.6 2. Hematuria, unspecified type R31.9 599.70 3. Urinary tract infection associated with indwelling urethral catheter, initial encounter T83.916F732.64 N39.0 599.0 4. Diarrhea, unspecified type R19.7 787.91 Subjective History of Present Illness I am seeing, Trung Shipmanroverto, in consultation for Hiro Santillan MD regarding [...] Units Date/Time CT Angiogram Lower Extremity Left [[id number]] Collected: 06/26/25 0500 Updated: 06/26/25 0511 Narrative: [...] Right lower extremity: Patient is status post wyrfj-mnw-sadk amputation. There is mild disease in the AFTER SCHOOL TEACHER and SFA. The PFA is occluded proximally with reconstitution. There is moderate segmental stenosing disease in the remainder of the SFA. 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 PFA is patent. There is mild SFA disease with moderate focal narrowing at the junction of the SFA and popliteal artery. The dseks-ihb-fgxf popliteal artery appears otherwise widely patent. There [...] the posterior tibial artery. 2.Status post right wkffw-hqp-ronn amputation. There is occlusion of the proximal right PFA with reconstitution. 3.Severe diffuse atrophy in the left lower extremity musculature. 4.Moderate sized fat and sigmoid colon containing left inguinal hernia and small fat-containing right inguinal hernia. 5.Marked urinary bladder wall thickening. Correlate for cystitis. Electronically Signed: uHssain Lyles MD 06/26/2025 5:08 AM EDT Workstation ID: [id number] XR Chest 1 View [[id number]] Collected: 06/26/25411 Updated: 06/26/25415 Narrative: XR CHEST [...] MD 06/26/2025 4:13 AM EDT Workstation ID: [id number] CT Abdomen Pelvis With Contrast [[id number]] Collected: 06/25/251937 Updated: 06/25/252155 Addenda: ADDENDUM #1 [...] Ferraro 06/25/2025 9:53 PM EDT Workstation ID: [id number] ORIGINAL REPORT: CT ABDOMEN PELVIS W CONTRAST [...] Ferraro 06/25/2025 7:55 PM EDT Workstation ID: [id number] Signed: 06/25/25 2153 by Nehemias Ferraro MD [...] Ferraro 06/25/2025 7:55 PM EDT Workstation ID: [id number] XR Foot 3+ View Left [[id number]] Collected: 06/25/251858 Updated: 06/25/251905 Narrative: XR FOOT [...] MD 06/25/2025 7:03 PM EDT Workstation ID: [id number] Assessment & Plan Assessment and Plan Mr. [...] hypertension Seizure disorder 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 PAD (peripheral artery [...] LEFT; Surgeon: Cecil Buenrostro Jr., MD; Location: [facility]; Service: Orthopedics; Laterality: Left; ??? ANTERIOR CERVICAL DISCECTOMY W/ FUSION Procedure: Cervical discectomy anterior with fusion C3-4; Surgeon: Tyree Tan MD; Location:[facility]; Service: Neurosurgery; Laterality: Bilateral; ??? AORTOGRAM Procedure: ABDOMINAL AORTIC ANGIOGRAM, LLE ANGIOGRAM, LEFT ANTERIOR TIBIAL ATHERECTOMY, LEFT ANTERIOR TIBIAL ANGIOPLASTY; Surgeon: Archie Olvera MD; Location: [facility]; Service: Vascular; Laterality: N/A; CONTRAST: 50 ML, FT: 2 MIN 54 SEC, DOSE: 66 MGY. ??? BACK SURGERY FOR DISC HERNIATION ??? CARDIAC CATHETERIZATION ??? CARDIAC CATHETERIZATION Procedure: Peripheral angiography - Left lower extremity angio - Right femoral access; Surgeon: Jared Marcano MD; Location: [facility]; Service: Peripheral Vascular; Laterality: N/A; ??? CORONARY ANGIOPLASTY WITH STENT PLACEMENT stent x 1 ??? INCISION AND DRAINAGE FOOT Procedure: LEFT FOOT DEBRIDEMENT WOUND VACUUM ASSISTED CLOSURE; Surgeon: Cecil Buenrostro Jr., MD;Location: [facility]; Service: Orthopedics; Laterality: Left; ??? INCISION [...] Laterality: Left; Please coordinate with Gautamconor Patel ([facility]) [phone] who will bring coils ??? LUMBAR DISCECTOMY Procedure: THORACIC LAMINECTOMY T11-12; Surgeon: Tyree Tan MD; Location: [facility]; Service: Neurosurgery [2] Allergies Allergen Reactions [...] Daily, Amanda Bermudez MD, 500 mg at 06/26/25842 ??? baclofen (LIORESAL) tablet 10 mg, 10 [...] Oral, BID With Meals, Amanda Bermudez MD, 3.125mg at 06/26/25841 ??? clopidogrel (PLAVIX) tablet 75 mg, 75 mg, Oral, Daily, Amanda Bermudez MD, 75 mg at 06/26/25841 ??? DAPTOmycin (CUBICIN) 550 mg in sodium chloride 0.9 % 50 mL IVPB, 6 mg/kg (Adjusted), Intravenous, Q24H, Amanda Bermudez MD ??? famotidine (PEPCID) tablet 20 mg, 20 mg, Oral, BID AC, Arnoldo Crews, PharmD ??? finasteride (PROSCAR) tablet 5 mg, 5 mg, Oral, Daily, Amanda Bermudez MD, 5 mg at 06/26/25842 ??? folic acid (FOLVITE) tablet 1 mg, 1 mg, Oral, Daily, Amanda Bermudez MD, 1 mg at 06/26/25841 ??? gabapentin (NEURONTIN) capsule 200 mg, 200 [...] flush 10 mL, 10 mL, Intravenous, PRN, Zeyad, Ally Pryor, CONSTRUCTION COST ESTIMATOR ??? sodium chloride 0.9 % flush 10 [...] CONSULT TO INFECTIOUS DISEASES Trung Pool 1955 [id number] Date of Consult: 06/26/2025 Admit Date: 06/25/2025 [...] excoriation/crusted areas at the toes, hospitalized at [facility] June 04 until June 08 2023 and discharged with oral antibiotics for left lower extremity cellulitis; he alsohas nonhealing wounds at his buttocks 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 Admitted to [facility] June 13 2023 diagnosis of sepsis per admission notes, left lower extremity cellulitis with pressure injury at buttocks. 06/15/24 Dr Colón saw and recommended amputation; patient refused ; see his note for detail 06/17/23 Dr buenrostro discussed potential options for heel debridement with patient; MRI no osteomyelitis per radiology; taken to OR PROCEDURE: Left 72555: Debridement of skin and subcutaneous tissue 69457: wound vacuum-assisted closure, wound measuring 2.5 cm [...] 07/25/[address] Buenrostro PROCEDURE: Left 74094: Debridement of skin and subcutaneous tissue 38328: Wound vacuum-assisted closure culture data with MRSA/aneta. [...] possible intervention 01/28/24 Dr. 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 Faust in [place] and has seen Dr Oneal (ID in [place]); he is not a good historian with respect to detail. Reports having had some further surgery to the left foot although he is unable to clarify specific date/procedure. Culture at [facility] August 07, 2024 from left foot wound with ESBL Klebsiella pneumoniae and pseudomonas aeruginosa (microbiology lab there reports the Pseudomonas is sensitive to Merrem). He reports his outpatient practitioners had recommended admission to the hospital for IV antibiotics but patient had refused at that time. He also reports that he was in the emergency room at [facility] mid August, no cultures done at that time. Patient reports practitioners at [facility] had recommended higher level amputation but patient has continued to refuse that. He was readmitted to [facility] on August 31, 2024 with worsening odor/drainage andredness/pain to the left lower extremity in recent days/weeks. He reports having been taking outpatient Levaquin; prior history MRSA/PSA and ESBL organisms 09/04/24 Dr Marcano. Procedure/CPT?? Codes: RIGHT AFTER SCHOOL TEACHER access - ultrasound guided Aortogram with LEFT lower extremity run-off LEFT PT angioplasty (5k367gn Nanocross) LEFT plantar angioplasty (1u536in Nanocross, 2.9w672iu UltraverseRx) LEFT AT angioplasty (4k493bx Nanocross, 2.1a245ir UltraverseRx) LEFT DP angioplasty (1z135gm Nanocross, 2.5o416ok UltraverseRx) RIGHT AFTER SCHOOL TEACHER closure (Angioseal) 09/07/24 Dr Marcano Procedure/CPT?? Codes: RIGHT AFTER SCHOOL TEACHER access - ultrasound guided Aortogram with LEFT lower extremity run-off LEFT Pr AVF embolization RIGHT AFTER SCHOOL TEACHER closure 09/09/24 moved to ICU overnight with [...] LEFT; Surgeon: Cecil Buenrostro Jr., MD; Location: [facility]; Service: Orthopedics; Laterality: Left; ANTERIOR CERVICAL DISCECTOMY W/ FUSION Bilateral 07/17/2020 Procedure: Cervical discectomy anterior with fusion C3-4; Surgeon: Tyree Tan MD; Location: [facility]; Service: Neurosurgery; Laterality: Bilateral; AORTOGRAM N/A 01/26/2024 Procedure: ABDOMINAL AORTIC ANGIOGRAM, LLE ANGIOGRAM, LEFT ANTERIOR TIBIAL ATHERECTOMY, LEFT ANTERIOR TIBIAL ANGIOPLASTY; Surgeon: Archie Olvera MD; Location: [facility]; Service: Vascular; Laterality: N/A; CONTRAST: 50 ML, FT: 2 MIN 54 SEC, DOSE: 66 MGY. BACK SURGERY FOR DISC HERNIATION CARDIAC CATHETERIZATION CARDIAC CATHETERIZATION N/A 09/04/2024 Procedure: Peripheral angiography - Left lower extremity angio - Right femoral access; Surgeon: Jared Marcano MD; Location: [facility] LOCATION; Service: Peripheral Vascular; Laterality: N/A; CORONARY ANGIOPLASTY WITH STENT PLACEMENT stent x 1 INCISION AND DRAINAGE FOOT Left 06/17/2023 Procedure: LEFT FOOT DEBRIDEMENT WOUND VACUUM ASSISTED CLOSURE; Surgeon: Cecil Buenrostro Jr., MD;Location: [facility]; Service: Orthopedics; Laterality: Left; INCISION AND DRAINAGE LEG Left 07/25/2023 Procedure: INCISION AND DRAINAGE HEEL, WOUND VAC; Surgeon: Cecil Buenrostro Jr., MD; Location: [facility]; Service: Orthopedics; Laterality: Left; INTERVENTIONAL RADIOLOGY PROCEDURE N/A 05/02/2019 Procedure: IVC FILTER PLACEMENT; Surgeon: Pedro Zapien MD; Location: [facility]; Service: Interventional Radiology INTERVENTIONAL RADIOLOGY PROCEDURE Left 09/07/2024 Procedure: LEFT peroneal arteriovenous fistula embolization - Right femoral access; Surgeon: Jared Marcano MD; Location: [facility]; Service: Cardiovascular; Laterality: Left; Please coordinate with Gautamconor Patel ([facility]) [phone] who will bring coils LUMBAR DISCECTOMY N/A 05/03/2019 Procedure: THORACIC LAMINECTOMY T11-12; Surgeon: Tyree Tan MD; Location: [facility]; Service: Neurosurgery Pediatric History Patient Parents [...] 3 Times Daily 07/10/25 1600 07/17/25 1559 10/13/25 2312 DAPTOmycin (CUBICIN) 550 mg in sodium chloride 0.9 % 50 mL IVPB Ordering Provider: Amanda Bermudez MD 6 mg/kg ?? 94.6 kg (Adjusted) 100 mL/hr over 30 Minutes Intravenous Every 24 Hours 06/26/25 2100 07/01/25205806/25/25 230 piperacillin-tazobactam (ZOSYN) 4.5 g IVPB in 100 mL NS MBP (CD) Ordering Provider: Amanda Bermudez MD 4.5 g over 4 Hours Intravenous Every 8 Hours 06/26/25 1200 07/01/25 1159 06/26/25 0831 vancomycin (VANCOCIN) capsule 125 mg Ordering Provider: Duglas Andres MD Placed in [facility] 125 mg Oral 4 Times [...] last 7 days Lab Units 06/25/25 181 SODIUM mmol/L 138 POTASSIUM mmol/L 4.4 CHLORIDE mmol/L 106 CO2 mmol/L 21.2* BUN mg/dL 27.3* CREATININE mg/dL 1.21 GLUCOSE mg/dL 173* CALCIUM mg/dL 8.3* Results from last 7 days Lab Units 06/25/251816 ALK PHOS U/L 127* BILIRUBIN mg/dL 0.2 ALT (SGPT) U/L 14 AST (SGOT) U/L 15 Results from last 7 days Lab Units 06/25/25 181 CRP mg/dL 4.34* Estimated Creatinine Clearance: 73 mL/min (by C-G formula based on SCr of 1.21 mg/dL). Microbiology: Radiology: Imaging Results (Last 72 Hours) Procedure Component Value Units Date/Time CT Angiogram Lower Extremity Left [[id number]] Collected: 06/26/25 0500 Updated: 06/26/25510 Narrative: CT [...] Right lower extremity: Patient is status post gebtl-aqm-pslb amputation. There is mild disease in the AFTER SCHOOL TEACHER and SFA. The PFA is occluded proximally with reconstitution. There is moderate segmental stenosing disease in the remainder of the SFA. 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 PFA is patent. There is mild SFA disease with moderate focal narrowing at the junction of the SFA and popliteal artery. The inlfj-qcn-bhxx popliteal artery appears otherwise widely patent. There [...] the posterior tibial artery. 2.Status post right tjjab-lno-wfbe amputation. There is occlusion of the proximal right PFA with reconstitution. 3.Severe diffuse atrophy in the left lower extremity musculature. 4.Moderate sized fat and sigmoid colon containing left inguinal hernia and small fat-containing right inguinal hernia. 5.Marked urinary bladder wall thickening. Correlate for cystitis. Electronically Signed: Hussain Lyles MD 06/26/2025 5:08 AM EDT Workstation ID: [id number] XR Chest 1 View [[id number]] Collected: 06/26/25411 Updated: 06/26/25415 Narrative: XR CHEST [...] MD 06/26/2025 4:13 AM EDT Workstation ID: [id number] CT Abdomen Pelvis With Contrast [[id number]] Collected: 06/25/251937 Updated: 06/25/252155 Addenda: ADDENDUM #1 [...] Ferraro 06/25/2025 9:53 PM EDT Workstation ID: [id number] ORIGINAL REPORT: CT ABDOMEN PELVIS W CONTRAST [...] Ferraro 06/25/2025 7:55 PM EDT Workstation ID: [id number] Signed: 06/25/252152 by Nehemias Ferraro MD Narrative: [...] Ferraro 06/25/2025 7:55 PM EDT Workstation ID: [id number] XR Foot 3+ View Left [[id number]] Collected: 06/25/251858 Updated: 06/25/251905 Narrative: XR FOOT [...] MD 06/25/2025 7:03 PM EDT Workstation ID: [id number] Impression: --acute left lower leg/foot cellulitis and wound infection, prior culture July 2024 with ESBL Klebsiella pneumoniae and pseudomonas aeruginosa, pseudomonas was sensitive to Merrem per microbiology lab at [facility]. 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 ; readmission May 2025 and [...] 400-400-40 MG/5ML suspension 15 mL 15 mL [id number] PRN Amanda Bermudez MD [Held by provider] apixaban (ELIQUIS) tablet 5 mg 5 mg Oral BID Amanda Bermudze MD ascorbic acid (VITAMIN C) tablet 500 [...] 50 mL IVPB 6 mg/kg (Adjusted) Intravenous W64VOabaixAmanda marcus MD finasteride (PROSCAR) tablet 5 mg [...] flush 10 mL 10 mL Intravenous PRN ZeyadEssiea Konstantin CONSTRUCTION COST ESTIMATOR sodium chloride 0.9 % flush 10 mL [...] Palliative IDT meeting: IZABELLA MURILLO, RNs, MDIV, DIRECTOR OF ENTERPRISE APPLICATIONS Inpatient Palliative Team office ([id number]) hours M-F 8a-4:30pm. After hours, weekends and holidays, contact Palliative Provider by calling [phone]. Problem: Palliative Care Goal: Enhanced Quality of [...] and holidays, contact Palliative Provider by calling [phone]. Problem: Palliative Care Goal: Enhanced Quality of [...] to follow. 929 Palliative IDT meeting: MD, CONSTRUCTION COST ESTIMATOR, RNs, MDIV, DIRECTOR OF ENTERPRISE APPLICATIONS Inpatient Palliative Team office ([id number]) hours M-F 8a-4:30pm. After hours, weekends and holidays, contact Palliative Provider by calling [phone]. Problem: Palliative Care Goal: Enhanced Quality of Life Outcome: Progressing * Duglas Mayes PT - 07/25/2025 10:00 AM EST Goal Outcome Evaluation: Plan of Care Reviewed With: patient Outcome Evaluation: LLE unna boot removed and dressings recovered with mepilex Ag foam and secured with kerlix and spandage to help limit discomfort and maintain a healthy wound bed. * Mely Portillo RN - 07/25/2025 8:30 AM EST Reviewed chart in preparation for WOC follow-up. Noted pt confused and agitated. Discussed [...] to follow. 929 Palliative IDT meeting: MD, CONSTRUCTION COST ESTIMATOR, RNs, MDIV Inpatient Palliative Team office ([id number]) hours M-F 8a-4:30pm. After hours, weekends and holidays, contact Palliative Provider by calling [phone]. Problem: Palliative Care Goal: Enhanced Quality of [...] Injury-Free Environment Recent Flowsheet Documentation Taken 07/24/2025 by Jeff Purcell RN Safety Promotion/Fall Prevention: [...] Sepsis Management Recent Flowsheet Documentation Taken 07/24/2025 by Jeff Purcell RN Infection Prevention: environmental [...] Taken 07/24/2025 0200 by Jeff Purcell RN Roof Shingler Protection: IV pole/bag removed from visual field torso covered tubing secured Diversional Activities: television Taken 07/24/2025 0000 by Jeff Purcell RN Roof Shingler Protection: IV pole/bag removed from visual field torso covered tubing secured Diversional Activities: television Taken 07/23/2025 2200 by Jeff Purcell RN Roof Shingler Protection: IV pole/bag removed from visual field torso covered tubing secured Diversional Activities: television Taken 07/23/20251999 by Jeff Purcell RN Roof Shingler Protection: IV pole/bag removed from visual field [...] to follow. 929 Palliative IDT meeting: MD, CONSTRUCTION COST ESTIMATOR, RNs, MDIV Inpatient Palliative Team office ([id number]) hours M-F 8a-4:30pm. After hours, weekends and holidays, contact Palliative Provider by calling [phone]. Problem: Palliative Care Goal: Enhanced Quality of [...] follow. 929 Palliative IDT meeting: IZABELLA MURILLO, RNs Inpatient Palliative Team office ([phone]) hours M-F 8a-4:30pm. After hours, weekends and holidays, contact Palliative Provider by calling [phone]. Problem: Palliative Care Goal: Enhanced Quality of [...] Palliative will continue 929 Palliative IDT meeting: , CONSTRUCTION COST ESTIMATOR, RNs, MDIV, DIRECTOR OF ENTERPRISE APPLICATIONS Inpatient Palliative Team office ([phone]) hours M-F 8a-4:30pm. After hours, weekends and holidays, contact Palliative Provider by calling [phone]. Problem: Palliative Care Goal: Enhanced Quality of Life Outcome: Progressing * Shyla Tarango, SOCO - 07/19/2025 2:22 PM EST Goal Outcome [...] d/c to SNF Anticipated Discharge Disposition (OT): senior living facility * Maxine Webb RN - 07/18/2025 6:11 PM EST Problem: Adult Inpatient Plan of Care Goal: Plan of Care Review Outcome: Progressing Flowsheets (Taken 07/18/2025 7410) Progress: no change Outcome Evaluation: Informed this morning during report that patient refused to wear bus driver/monitor and refusal form signed. No acute events this shift. Patient remains on RA. LLE pain 7-910 today. Patient needs met throughout shift. Plan of Care Reviewed With: patient Goal Outcome Evaluation: Plan of Care Reviewed With: patient Progress: no change Outcome Evaluation: Informed this morning during report that patient refused to wear bus driver/monitor and refusal form signed. No acute events [...] to follow. 929 Palliative IDT meeting: MD, CONSTRUCTION COST ESTIMATOR, RNs, MDIV Inpatient Palliative Team office ([phone]) hours M-F 8a-4:30pm. After hours, weekends and holidays, contact Palliative Provider by calling [phone]. Problem: Palliative Care Goal: Enhanced Quality of Life Outcome: Progressing * Jada Diaz RN - 07/18/2025 6:33 AM EST Goal Outcome Evaluation: Pt alert and oriented. RA, NSR. VSS. Contact/spore precautions maintained. [place] intact. Around 0320, pt removed bus driver/monitor leads and pulse ox. Educated pt on importance of keeping monitoring devices in place while he's in the hospital, to which pt said I can make my own damn decisions . Thirty minutes later, PCT attempted to have pt allow her to repalce monitoring leads, to which pt continued to refused and fired PCT from his care. PROCESS CAMERA OPERATOR made aware. Refusal of care form signed [...] Continue IPOT POC. Anticipated Discharge Disposition (OT): senior living facility * Mely Portillo RN - 07/17/2025 [...] then cleansed entire area. Allowed to dry. [place] (purple color) applied to all areas except full-thickness wound on right gluteal. Mepilex Ag applied to this area. Covered with Allevyn. Sacral Allevyn then skin prep/barrier also applied to right ischium for protection. Offloaded sacrumand heel with [place] pillow. Notes: No tunneling noted, but area [...] Score: 13 (07/17/25 0859) Specialty support surface: [facility] Will order pump to make CITLALY specialty bed. WOC CONSULTED FOR SPECIALTY BED-ISOTOUR PUMP [facility] ISOTOUR PUMP # 13 ordered for patient. Please implement pressure injury prevention protocol. Specialty beds do not replace turning/offloading. At discharge, please wipe down pump with appropriate cleaning wipes and notify pouch making machine operator and Transport to have [facility] ISOTOUR PUMP returned to storage. Thank you. [...] continue to follow for support and ongoing [facility]. 0930 Palliative IDT meeting: CONSTRUCTION COST ESTIMATOR ;RNs;MDs; MDIV After hours, weekends and holidays, contact Palliative Provider by calling [phone]. * Shagufta Woodruff RN - 07/14/2025 5:36 [...] and NPWT to improve wound healing. * aJcqueline Proctor RN - 07/14/2025 7:58 AM EDT [...] in restraints. Family notified. NSR on tele-monitor. liquid flavor compounder Oxycodone and Neurotin not given due to [...] side of bed on RA. Pt. endorsed 710 LLE pain but had just received PRN from primary RN. Mildly confused this afternoon but no more agitation. Pt. stated he plans to go to rehab with the goal of getting back home. Palliative care to continue to follow for support and ongoing [facility]. 929 Palliative IDT meeting: CONSTRUCTION COST ESTIMATOR ;RNs;MDs; MDIV After hours, weekends and holidays, contact Palliative Provider by calling [phone]. * Fátima Mora OT - 07/13/2025 1:05 PM EDT Goal [...] and UE TE. Anticipated Discharge Disposition (OT): senior living facility * Hayden Matias, PT - 07/13/2025 [...] to follow. 929 Palliative IDT meeting: MD, CONSTRUCTION COST ESTIMATOR, RNs, MDIV, DIRECTOR OF ENTERPRISE APPLICATIONS Inpatient Palliative Team office ([phone]) hours M-F 8a-4:30pm. After hours, weekends and holidays, contact Palliative Provider by calling [phone]. Problem: Palliative Care Goal: Enhanced Quality of [...] continue to follow for support and ongoing [facility]. 09 Palliative IDT meeting: CONSTRUCTION COST ESTIMATOR ;RNs;MDs; MDIV; DIRECTOR OF ENTERPRISE APPLICATIONS After hours, weekends and holidays, contact Palliative Provider by calling [phone]. * Duglas Mayes, PT - 07/11/2025 11:15 AM EDT Goal Outcome Evaluation: Plan of Care Reviewed With: patient Outcome Evaluation: wound vac dressing intact with no issues noted. * Juliet Silverio RN - 07/11/2025 7:30 AM EDT Goal Outcome Evaluation: Plan of Care Reviewed With: patient Progress: no change Outcome Evaluation: VSS, A&Ox4, RA, NSR on bus driver/monitor, prn pain medication given x2, pt slept intermittently, K+ 6.2 lokelma PO, dextrose and insulin given IV, will cont. to monitor. * Juani Clark, OT - 07/10/2025 1:36 PM EDT Goal [...] per OT POC. Anticipated Discharge Disposition (OT): senior living facility * Duglas Mayes, PT - 07/10/2025 [...] Disposition (PT): inpatient rehabilitation facility * Norma Kramer RN - 07/09/2025 3:50 PM EDT Goal Outcome [...] Flowsheet Documentation Taken 07/08/2025 1600 by Luly Ley, JESSEE Safety Promotion/Fall Prevention: activity supervised safety round/check completed nonskid shoes/slippers when out of bed muscle strengthening facilitated mobility aid in reach lighting adjusted Taken 07/08/2025 1400 by Luly Ley RN Safety Promotion/Fall Prevention: activity supervised safety round/check completed nonskid shoes/slippers when out of bed muscle strengthening facilitated mobility aid in reach lighting adjusted Taken 07/08/2025 1200 by Luly Ley RN Safety Promotion/Fall Prevention: [...] palliative IDT meeting: IZABELLA MURILLO, RN, SW, Charge Poster After hours, weekends and holidays, contact Palliative Provider by calling [phone]. * Hayden Matias PT - 07/05/2025 10:34 AM EDT Goal Outcome Evaluation: Plan of Care Reviewed With: patient Progress: improving Outcome Evaluation: Patient participated well in therapy performing bed mobility and seated balanceactivities. Patient remains limited by deconditioning/weakness and would cont to benefit from skilled IPPT. Anticipated Discharge Disposition (PT): senior living facility * Fátima Mora OT - 07/05/2025 [...] higher independence level. Anticipated Discharge Disposition (OT): senior living facility * Guerita Gustafson RN - 07/05/2025 [...] patient Outcome Evaluation: pt remains NSR on bus driver/monitor, RA, pain medication given x2, NPO after [...] Outcome Evaluation: Pt remains in NSR on bus driver/monitor, RA, pain medication given x1, plan for [...] current PT POC. Anticipated Discharge Disposition (PT): senior living facility * Fátima Mora OT - 06/29/2025 [...] Continue OT POC. Anticipated Discharge Disposition (OT): senior living facility * Abril Espinoza RN - 06/29/2025 [...] SNF at discharge. Anticipated Discharge Disposition (PT): senior living facility * Crys Ferrari OT - 06/26/2025 2:34 PM EDT Goal Outcome Evaluation: Plan of Care Reviewed With: patient Outcome Evaluation: Pt's ADL independence limited d/t decreased functional endurance, LE strength deficits, and balance deficits. Pt would benefit from continued skilled IPOT services to address current functional deficits. Rec SNF at d/c. Anticipated Discharge Disposition (OT): senior living facility documented in this encounter OR Notes [...] femoral artery and left popliteal artery 6 [place] Angio-Seal closure of right common femoral arteriotomy Sharp excisional debridement of left transmetatarsal amputation stump site with 10 blade scalpel down to the level of the skin Application of negative pressure wound therapy wound measures 4.5 cm x 6 cm x 1 mm Staff: Surgeon(s): Vaughn Hollingsworth DO Yarder: Alessandra Gregory RN Social Welfare Clerk: Juani Blair RTJada Nassar Scrub Person: Najma Win Encapsulator: Crys Xavier Anesthesia: Monitored Anesthesia Care Estimated [...] artery the micropuncture needle wire ultimately 6 [place] sheath was placed in the right common [...] on angiogram. I exchanged the short 6 [place] sheath for a 6 [place] by 45 cm sheath that was placed [...] common femoral arteriotomy was closed with 6 [place] Angio-Seal. I then turned my attention to [...] Hematuria, diarrhea, left foot infection Context: Trung Pool is a 70 y.o. male who presents to the ED c/o hematuria and diarrhea patient arrived from home via [facility]. Concerned with abdominal discomfort, liquid stools [...] LEFT; Surgeon: Cecil Buenrostro Jr., MD; Location: [facility]; Service: Orthopedics; Laterality: Left; ANTERIOR CERVICAL DISCECTOMY W/ FUSION Bilateral 07/17/2020 Procedure: Cervical discectomy anterior with fusion C3-4; Surgeon: Tyree Tan MD; Location: [facility]; Service: Neurosurgery; Laterality: Bilateral; AORTOGRAM N/A 01/26/2024 Procedure: ABDOMINAL AORTIC ANGIOGRAM, LLE ANGIOGRAM, LEFT ANTERIOR TIBIAL ATHERECTOMY, LEFT ANTERIOR TIBIAL ANGIOPLASTY; Surgeon: Archie Olvera MD; Location: [facility]; Service: Vascular; Laterality: N/A; CONTRAST: [...] femoral access; Surgeon: Jared Marcano MD; Location: [facility]VASIVE LOCATION; Service: Cardiovascular; Laterality: Left; Please coordinate with Gautam Patel ([facility]) [phone] who will bring coils LUMBAR DISCECTOMY N/A 05/03/2019 Procedure: THORACIC LAMINECTOMY T11-12; Surgeon: Tyree Tan MD; Location: [facility]; Service: Neurosurgery FAMILY HISTORY Family History [...] pH, UA 6.0 5.0 - 8.0 Specific [place], UA 1.011 1.005 - 1.030 Glucose, UA [...] Ferraro 06/25/2025 9:53 PM EDT Workstation ID: [id number] ORIGINAL REPORT: CT ABDOMEN PELVIS W CONTRAST [...] Ferraro 06/25/2025 7:55 PM EDT Workstation ID: [id number] Result Date: 06/25/2025 CT ABDOMEN PELVIS W [...] Nehemias Ferraro 06/25/2025 7:55 PMEDT Workstation ID: [id number] XR Foot 3+ View Left Result Date: [...] MD 06/25/2025 7:03 PM EDT Workstation ID: [id number] I ordered and independently reviewed the above [...] Patient for Discharge in 2 Days; 06/27/2025; Renal Nurse Clearance; Surgery Contact Providerfor Discharge Orders When [...] ED Course: Consultants: ED Course as of 06/25/25 2327 Mon Jun 25, 20251950 Per radiology report patient's De [...] I discussed the findings with the patient/patient medical sales representative who is in agreement with the [...] Sexual activity: Defer Ally Jeffers APRN 06/25/25 2096 Cosigned by Vaughn Hartman MD at 06/25/2025 11:33 PM EDT [...] 08/02/2025 11:40 AM EST Continued Stay Note [facility] Patient Name: Trung Pool Today's Date: [...] 08/01/2025 3:42 PM EST Continued Stay Note [place] Patient Name: Trung Pool Today's Date: 08/01/2025 Admit Date: 06/25/2025 Plan: ELECTRO MECHANIC: sumbitted APS report Discharge Plan Row Name 08/01/25 1541 Plan Plan ELECTRO MECHANIC: sumbitted APS report Plan Comments ELECTRO MECHANIC made an APS report due to State Regulations: Safety concerns discharging home alone (as patient has requested vs SNF). The Web Tracking # for this report is: Web Id # [id number]. Update 08/06: At this time, the report submitted DOES NOT meet acceptance criteria for further assessment and will NOT be assigned to a social media specialist/staff. Discharge Codes No documentation. Expected Discharge Date and Time Expected Discharge Date Expected Discharge Time Aug 01, 2025 ABBEY Marinelli (Kay) * Case Management/Social Work - Nika Barfield RN - 08/01/2025 12:30 PM EST Case Management Discharge Note Final Note: Spoke with patient in room. His plan is to go home with home health and waiver servicestoday. He is current with [facility]. Orders for PT, OT and senior living/discharge summary faxed to them at [phone]. Notified them that patient would be discharging today.Notified patient's social media community manager Susie ([phone]) that patient would be discharging. Attempted to notify patient's sister, Zhane by phone. No answer. Left message on machine. [facility] ambulance will transport. Transportation can be requested [...] Provider Services Address Phone Fax Patient Preferred [facility] Home Rehabilitation, Home Nursing [address] [facility] [facility] [address] [address] [phone] -- Therapy No services have been selected for the patient. Community & DME No services have been selected for the patient. Selected Continued Care - Prior Encounters Includes continued care and service providers with selected services from prior encounters from 03/27/2025 to 08/01/2025 Discharged on 06/11/2025 Admission date: 06/02/2025 - Discharge disposition: Home- Health Care [facility] Provider Services Address Phone Fax Patient Preferred [facility] [address] [address] [phone] -- Community Resources No active community resources. Transportation Services Transportation: Ambulance Ambulance: [facility] Final Discharge Disposition Code: 06 - home with home health care * Therapy Wound Care Treatment - Duglas Mayes, PT - 07/27/2025 3:04 PM EST Images from the original note were not included. Acute Care - Wound/Debridement Treatment Note [facility] Patient Name: Trung Pool : 1955 Today's Date: 07/27/2025 Admit Date: 06/25/2025 Visit Dx: ICD-10-CM ICD-9-CM 1. Cellulitis of left lower extremity L03.116 682.6 2. Hematuria, unspecified type R31.9 599.70 3. Urinary tract infection associated with indwelling urethral catheter, initial encounter T83.241Q691.64 N39.0 599.0 4. Diarrhea, unspecified type R19.7 [...] of migraine headaches 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 Left leg cellulitis [...] Cecil Buenrostro Jr., MD; Location: [facility]; Service: Orthopedics; Laterality: Left; ANTERIOR CERVICAL DISCECTOMY W/ FUSION Bilateral 07/17/2020 Procedure: Cervical discectomy anterior with fusion C3-4; Surgeon: Tyree Tan MD; Location:[facility]; Service: Neurosurgery; Laterality: Bilateral; AORTOGRAM N/A 01/26/2024 Procedure: ABDOMINAL AORTIC ANGIOGRAM, LLE ANGIOGRAM, LEFT ANTERIOR TIBIAL ATHERECTOMY, LEFT ANTERIOR TIBIAL ANGIOPLASTY; Surgeon: Archie Olvera MD; Location: [facility]; Service: Vascular; Laterality: N/A; CONTRAST: 50 ML, FT: 2 MIN 54 SEC, DOSE: 66 MGY. AORTOGRAM Left 07/03/2025 Procedure: ARTERIOGRAM LOWER EXTREMITY; Surgeon: Vaughn Hollingsworth DO; Location: [facility]; Service: Vascular; Laterality: Left; FT-6MINS 24SEC 140 MGY CONTRAST -15ML BACK SURGERY FOR DISC HERNIATION CARDIAC CATHETERIZATION CARDIAC CATHETERIZATION N/A 09/04/2024 Procedure: Peripheral angiography - Left lower extremity angio - Right femoral access; Surgeon: Jared Marcano MD; Location: [facility]VASIVE LOCATION; Service: Peripheral Vascular; Laterality: N/A; CORONARY ANGIOPLASTY WITH STENT PLACEMENT stent x 1 INCISION AND DRAINAGE FOOT Left 06/17/2023 Procedure: LEFT FOOT DEBRIDEMENT WOUND VACUUM ASSISTED CLOSURE; Surgeon: Cecil Buenrostro Jr., MD;Location: [facility]; Service: Orthopedics; Laterality: Left; INCISION AND DRAINAGE LEG Left 07/25/2023 Procedure: INCISION AND DRAINAGE HEEL, WOUND VAC; Surgeon: Cecil Buenrostro Jr., MD; Location: [facility]; Service: Orthopedics; Laterality: Left; INCISION AND DRAINAGE LEG Left 07/03/2025 Procedure: DEBRIDEMENT WOUND, PLACEMENT OF WOUND VAC; Surgeon: Vaughn Hollingsworth DO; Location: [facility]; Service: Vascular; Laterality: Left; INTERVENTIONAL RADIOLOGY PROCEDURE N/A 05/02/2019 Procedure: IVC FILTER PLACEMENT; Surgeon: Pedro Zapien MD; Location: [facility] LOC[facility]; Service: Interventional Radiology INTERVENTIONAL RADIOLOGY PROCEDURE Left 09/07/2024 Procedure: LEFT peroneal arteriovenous fistula embolization - Right femoral access; Surgeon: Jared Marcano MD; Location: [facility]VASIVE LOCATION; Service: Cardiovascular; Laterality: Left; Please coordinate with Gautam Patel ([facility] [phone] who will bring coils LUMBAR DISCECTOMY N/A 05/03/2019 Procedure: THORACIC LAMINECTOMY T11-12; Surgeon: Tyree Tan MD; Location: [facility]; Service: Neurosurgery Wound 01/28/24 Left anterior second toe Incision (Active) Dressing Appearance intact;moist drainage 07/27/255 Dressing Removed Type foam 07/27/25 144 Confirmed Empty Wound Bed Yes, visual inspection of wound bed 07/27/251444 Closure Unable to assess 07/26/251944 Base moist;pink;red;slough 07/27/251444 Periwound intact;dry 07/27/251444 Periwound Temperature warm 07/27/25 144 Periwound Skin Turgor soft 07/27/25 144 Edges irregular 07/27/25 144 Drainage Characteristics/Odor serosanguineous 07/27/25 144 Drainage Amount scant 07/27/25 1445 Care, Wound irrigated with;wound cleanser;debrided 07/27/25 144 Dressing Care dressing changed;foam;low-adherent;silver impregnated 07/27/25 144 Periwound Care cleansed with pH balanced cleanser 07/27/25 144 Wound Left posterior heel (Active) Dressing Appearance intact 07/27/251444 Dressing Removed Type foam;silver impregnated 07/27/251444 Confirmed Empty Wound Bed Yes, visual inspection of wound bed 07/27/251444 Closure Unable to assess 07/26/251944 Base moist;pink 07/27/251444 Periwound intact;dry 07/27/251444 Periwound Temperature warm 07/27/25 144 Periwound Skin Turgor soft 07/27/25 144 Drainage Characteristics/Odor serosanguineous 07/27/25 144 Drainage Amount scant 07/27/25 144 Care, Wound irrigated with;wound cleanser;debrided 07/27/25 144 Dressing Care foam;low-adherent;silver impregnated 07/27/25 144 Periwound Care cleansed with pH balanced cleanser 07/27/25 144 Wound 06/26/25 0150 Left medial coccyx Pressure Injury (Active) Dressing Appearance open to air 07/26/25 194 Closure Open to air 07/26/25 1800 Base [...] PT Evaluation and Treatment Row Name 07/27/25 144 Physical Therapy Time and Intention Subjective Information complains of;weakness;fatigue -MF Document Type therapy note (daily note);wound care -MF Mode of Treatment individual therapy;physical therapy - Row Name 07/27/25 1442 Pain Scale: FACES Pre/Post-Treatment Pain: FACES Scale, Pretreatment 0-->no hurt -MF Posttreatment Pain Rating 0-->no hurt -MF Row Name Wound 06/26/25 015 Left medial coccyx Pressure Injury Wound - [...] LEFT FOOT -RS Additional Comments: PER MD DARRICK REYNOSO 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) - Properties Group Placement Date: 07/03/25 -RS Location: LEFT FOOT -RS Additional Comments: PER MD DARRICK REYNOSO 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) - Properties Group Placement Date: 07/03/25 -RS Location: LEFT FOOT -RS Additional Comments: PER MD DARRICK REYNOSO 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) - Properties Group Placement Date: 07/03/25 -RS Location: LEFT FOOT -RS Additional Comments: PER MD DARRICK REYNOSO Row Name 07/27/25 144 Coping Observed Emotional State calm;cooperative - Verbalized [...] Type MF Duglas Mayes, PT Physical Therapist Margarita Charles RN Registered Nurse Kristan Giordano RN Registered Nurse Henrietta Blakely RN Registered Nurse Iggy Thakur, JESSEE Registered Nurse Alessandra Whitaker, JESSEE Registered Nurse Physical Therapy Education Title: PT OT ELASTIC YARN TWISTER HELPER Therapies (In Progress) Topic: Physical Therapy (In [...] Date 08/04/25 -MF Untimed Charges Wound Care 02970 Non-selective debridement -MF 21883-Cal-vtskpzyhd debridement 20 -MF Total Minutes Untimed Charges [...] 07/27/2025 12:48 PM EST Continued Stay Note [facility] Patient Name: Trung Pool Today's Date: 07/27/2025 [...] listed, and brought up the fact that [facility] is not in network with hisinsurance, therefore he would have to pay out of pocket for the room. Stacey, engineering production liaison, was also speaking with Zhane at the same time I was, and we both explained how the process works. I havecalled and left a voicemail for Juani, nayeli at [facility] to discuss this. Zhane states that she would also be interested in [facility] in [place], [place]. I have called and spoken with ad missions at [facility] in [place], and I have faxed over a new referral to them. I have also faxed over another referral to [facility]. Case management will continue to follow. Final Discharge Disposition Code 04 - intermediate care facility Row Name 07/27/25 1226 Plan Plan technician terminal and repeater care Plan Comments Upon arrival to pt's room, complex case manager Monalisa and pt's sister Zhane outside pt's room. Monalisa informed the sister that [facility], the pt's first choice for senior care care, does not take pt's insurance. Monalisa informed Zhane will continue to search for other facilities close to [facility]. patient relations liaison will continue to follow while placement is found. Please call [phone] if can be of further assistance. Discharge Codes No documentation. Expected Discharge Date and Time Expected Discharge Date Expected Discharge Time Jul 30, 2025 Monalisa Reilly RN * Significant Note - Shara Bermudez APRN - 07/25/2025 1:33 PM EST Provider notified patient is comfort measures only. General neurology will see patient on request -Shara Bermudez APRN * Therapy Wound Care Treatment - Duglas Mayse, PT - 07/25/2025 11:18 AM EST Images from the original note were not included. Acute Care - Wound/Debridement Treatment Note [facility] Patient Name: Trung Pool : 1955 Today's Date: 07/25/2025 Admit Date: 06/25/2025 Visit Dx: ICD-10-CM ICD-9-CM 1. Cellulitis of left lower extremity L03.116 682.6 2. Hematuria, unspecified type R31.9 599.70 3. Urinary tract infection associated with indwelling urethral catheter, initial encounter T83.252Y361.64 N39.0 599.0 4. Diarrhea, unspecified type R19.7 [...] of migraine headaches 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 Left leg cellulitis [...] fusion C3-4; Surgeon: Tyree Tan MD; Location: [facility]; Service: Neurosurgery; Laterality: Bilateral; AORTOGRAM N/A 01/26/2024 Procedure: ABDOMINAL AORTIC ANGIOGRAM, LLE ANGIOGRAM, LEFT ANTERIOR TIBIAL ATHERECTOMY, LEFT ANTERIOR TIBIAL ANGIOPLASTY; Surgeon: Archie Olvera MD; Location: [facility]; Service: Vascular; Laterality: N/A; CONTRAST: 50 ML, FT: 2 MIN 54 SEC, DOSE: 66 MGY. AORTOGRAM Left 07/03/2025 Procedure: ARTERIOGRAM LOWER EXTREMITY; Surgeon: Vaughn Hollingsworth DO; Location: [facility]; Service: Vascular; Laterality: Left; FT-6MINS 24SEC 140 MGY CONTRAST -15ML BACK SURGERY FOR DISC HERNIATION CARDIAC CATHETERIZATION CARDIAC CATHETERIZATION N/A 09/04/2024 Procedure: Peripheral angiography - Left lower extremity angio - Right femoral access; Surgeon: Jared Marcano MD; Location: [facility]ATION; Service: Peripheral Vascular; Laterality: N/A; CORONARY ANGIOPLASTY WITH STENT PLACEMENT stent x 1 INCISION AND DRAINAGE FOOT Left 06/17/2023 Procedure: LEFT FOOT DEBRIDEMENT WOUND VACUUM ASSISTED CLOSURE; Surgeon: Cecil Buenrostro Jr., MD;Location: [facility] OR; Service: Orthopedics; Laterality: Left; INCISION AND DRAINAGE LEG Left 07/25/2023 Procedure: INCISION AND DRAINAGE HEEL, WOUND VAC; Surgeon: Cecil Buenrostro Jr., MD; Location: [facility]; Service: Orthopedics; Laterality: Left; INCISION AND DRAINAGE LEG Left 07/03/2025 Procedure: DEBRIDEMENT WOUND, PLACEMENT OF WOUND VAC; Surgeon: Vaughn Hollingsworth DO; Location: [facility]; Service: Vascular; Laterality: Left; INTERVENTIONAL RADIOLOGY PROCEDURE N/A 05/02/2019 Procedure: IVC FILTER PLACEMENT; Surgeon: Pedro Zapien MD; Location: [facility]; Service: Interventional Radiology INTERVENTIONAL RADIOLOGY PROCEDURE Left 09/07/2024 Procedure: LEFT peroneal arteriovenous fistula embolization - Right femoral access; Surgeon: Jared Marcano MD; Location: [facility]; Service: Cardiovascular; Laterality: Left; Please coordinate with Gautam Patel ([facility]) [phone] who will bring coils LUMBAR DISCECTOMY N/A 05/03/2019 Procedure: THORACIC LAMINECTOMY T11-12; Surgeon: Tyree Tan MD; Location: [facility]; Service: Neurosurgery Wound 01/28/24 Left anterior second toe Incision (Active) Dressing Appearance intact;moist drainage 07/25/25 1005 Dressing Removed Type foam;low-adherent;silver impregnated 07/25/25 1005 Confirmed Empty Wound Bed Yes, visual inspection of wound bed 07/25/25 1005 Base moist;pink;red;slough 07/25/25 1005 Periwound intact;dry 07/25/25 1005 Periwound Temperature warm [...] Unable to assess 07/25/25 1000 Base moist;pink;red 07/25/25 100 Periwound intact;dry 07/25/25 100 Periwound Temperature warm 07/25/251004 Periwound Skin Turgor soft 07/25/251004 Edges irregular 07/25/251004 Wound Length (cm) 2 cm 07/25/25 100 Wound Width (cm) 3 cm 07/25/25 100 Wound Depth (cm) 0.1 cm 07/25/251004 Wound Surface Area (cm^2) 4.71 cm^2 07/25/25 1005 Wound Volume (cm^3) 0.314 cm^3 07/25/25 1005 Drainage Characteristics/Odor serosanguineous 07/25/251004 Drainage Amount scant 07/25/25 100 Care, Wound irrigated with;wound cleanser;debrided 07/25/25 1005 Dressing Care foam;low-adherent;silver impregnated 07/25/25 100 Periwound Care dry periwound area maintained 07/25/25 1005 Wound 06/26/25 0150 Left medial coccyx Pressure [...] visual inspection of wound bed - Base moist;pink;red;slough -MF Periwound intact;dry -MF Periwound [...] LEFT FOOT -RS Additional Comments: PER MD ILTIS -RS Therapy Setting vacuum off -VALARIE 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) - Properties Group Placement Date: 07/03/25 -RS Location: LEFT FOOT -RS Additional Comments: PER MD DARRICK REYNOSO 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) - Properties Group Placement Date: 07/03/25 -RS Location: LEFT FOOT -RS Additional Comments: PER MD DARRICK REYNOSO 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) - Properties Group Placement Date: 07/03/25 -RS Location: LEFT FOOT -RS Additional Comments: PER MD DARRICK REYNOSO Row Name 07/25/25 1005 Coping Observed [...] Type MF Duglas Mayes, PT Physical Therapist Margarita Olvera, RN Registered Nurse Kristan Giordano RN Registered Nurse Henrietta Blakely RN Registered Nurse Iggy Thakur RN Registered Nurse Alessandra Whitaker, RN Registered Nurse Physical Therapy Education Title: PT OT ELASTIC YARN TWISTER HELPER Therapies (In Progress) Topic: Physical Therapy (In [...] - Mirela Hsu, PT Physical Therapist PT 01/02/21 - Leonie [...] Re-Cert Due Date 08/04/25 -MF Untimed Charges 18683-Laqlkvkjv debridement 25 -MF Total Minutes Untimed Charges [...] 07/24/2025 12:58 PM EST Continued Stay Note [facility] Patient Name: Trung Pool Today's Date: 07/24/2025 [...] 07/23/2025 2:47 PM EST Continued Stay Note [facility] Patient Name: Trung Pool Today's Date: [...] Pool is in wrist restraints as no senior living facility will accept him. I did receive a phone call from Susie Mr Pool's complex case manager from his insurance. Susie states [...] follow. Final Discharge Disposition Code 03 - senior living facility (SNF) Discharge Codes No documentation. Expected Discharge Date and Time Expected Discharge Date Expected Discharge Time Jul 23, 2025 Monalisa Reilly RN * Therapy Wound Care Treatment - Duglas Mayes PT - 07/22/2025 2:26 PM EST Images from the original note were not included. Acute Care - Wound/Debridement Treatment Note [facility] Patient Name: Trung Pool : 1955 Today's Date: 07/22/2025 Admit Date: 06/25/2025 Visit Dx: ICD-10-CM ICD-9-CM 1. Cellulitis of left lower extremity L03.116 682.6 2. Hematuria, unspecified type R31.9 599.70 3. Urinary tract infection associated with indwelling urethral catheter, initial encounter T83.049K410.64 N39.0 599.0 4. Diarrhea, unspecified type R19.7 [...] of migraine headaches 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 Left leg cellulitis [...] LEFT; Surgeon: Cecil Buenrostro Jr., MD; Location: [facility] OR; Service: Orthopedics; Laterality: Left; ANTERIOR CERVICAL DISCECTOMY W/ FUSION Bilateral 07/17/2020 Procedure: Cervical discectomy anterior with fusion C3-4; Surgeon: Tyree Tan MD; Location: [facility] OR; Service: Neurosurgery; Laterality: Bilateral; AORTOGRAM N/A 01/26/2024 Procedure: ABDOMINAL AORTIC ANGIOGRAM, LLE ANGIOGRAM, LEFT ANTERIOR TIBIAL ATHERECTOMY, LEFT ANTERIOR TIBIAL ANGIOPLASTY; Surgeon: Archie Olvera MD; Location: [facility]BR[facility]; Service: Vascular; Laterality: N/A; CONTRAST: 50 ML, FT: 2 MIN 54 SEC, DOSE: 66 MGY. AORTOGRAM Left 07/03/2025 Procedure: ARTERIOGRAM LOWER EXTREMITY; Surgeon: Vaughn Hollingsworth DO; Location: [facility]; Service: Vascular; Laterality: Left; FT-6MINS 24SEC 140 MGY CONTRAST -15ML BACK SURGERY FOR DISC HERNIATION CARDIAC CATHETERIZATION CARDIAC CATHETERIZATION N/A 09/04/2024 Procedure: Peripheral angiography - Left lower extremity angio - Right femoral access; Surgeon: Jared Marcano MD; Location: [facility] C[facility] INVASIVE LOCATION; Service: Peripheral Vascular; Laterality: [...] Laterality: Left; Please coordinate with Gautam Patel ([facility]) [phone] who will bring coils LUMBAR DISCECTOMY N/A [...] periwound area maintained 07/22/25 1200 Wound 06/26/25 015 Left medial coccyx Pressure Injury (Active) Closure None 07/21/25 1800 Base nonblanchable 07/21/252025 Periwound redness;excoriated 07/21/252025 Periwound Temperature warm 07/21/25 1800 Periwound Skin Turgor soft 07/21/25 1800 Drainage Characteristics/Odor sanguineous 07/21/25 1800 Drainage Amount scant 07/21/25 1800 Dressing Care skin barrier agent applied 07/21/252025 Periwound Care barrier ointment applied 07/21/252025 Wound 06/26/25 015 Left posterior greater trochanter Pressure Injury (Active) Closure Unable to assess 07/22/25 1000 Base bleeding;moist;red 07/21/25 1800 Periwound excoriated;macerated;moist;redness 07/21/25 1800 Periwound Temperature warm 07/21/25 1800 Periwound Skin Turgor soft 07/21/25 1800 Edges open 07/21/25 1800 Drainage Characteristics/Odor sanguineous 07/21/25 1800 Drainage Amount scant 07/21/25 1800 Wound 06/26/25 015 Right posterior greater trochanter [...] Placement Date: 06/26/25 -EW Placement Time: 149 - Present on Original Admission: Y -EW Side: Left -EW Orientation: medial -EW Location: coccyx -EW Primary Wound Type: Pressure Inj -EW Retired Wound - Properties Group Placement Date: 06/26/25 -EW Placement Time: 149 - Present on Original [...] LEFT FOOT -RS Additional Comments: PER MD DARRICK REYNOSO Therapy Setting vacuum off - Sponges Removed 1 -MF Finger sweep complete Yes -MF 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) - Properties Group Placement Date: 07/03/25 -RS Location: LEFT FOOT -RS Additional Comments: PER MD DARRICK REYNOSO 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) - Properties Group Placement Date: 07/03/25 -RS Location: LEFT FOOT -RS Additional Comments: PER MD DARRICK REYNOSO 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) - Properties Group Placement Date: 07/03/25 -RS Location: LEFT FOOT -RS Additional Comments: PER MD DARRICK REYNOSO Row Name 07/22/25 1200 Coping Observed [...] Physical Therapist Margarita Olvera, RN Registered Nurse EW Eddie, Kristan A, RN Registered Nurse Henrietta Blakely RN Registered Nurse Alessandra Whitaker, RN Registered Nurse Physical Therapy Education Title: PT OT ELASTIC YARN TWISTER HELPER Therapies (In Progress) Topic: Physical Therapy (In [...] Re-Cert Due Date 07/20/25 -MF Untimed Charges 10797-Yygv Boot 25 -MF Total Minutes Untimed Charges Total Minutes 25 -MF Total Minutes 25 -MF User Llanes (r) = Recorded By, (t) = Taken By, (c) = Cosigned By Initials Name Provider Type Duglas Pathak, PT Physical Therapist Therapy Charges for Today Code Description Service Date Service Provider Modifiers Qty [id number] HC PT NEG PRESS WOUND TO 50SQCM DME1 07/21/2025 Duglas Mayes, PT 1 PT G-Codes Outcome Measure Options: AM-PAC 6 Clicks Daily Activity (OT) AM-PAC 6 Clicks Score (PT): 8 AM-PAC 6 Clicks Score (OT): 16 Duglas Mayes, PT 07/22/2025 * Case Management/Social Work - Monalisa Reilly RN - 07/20/2025 12:51 PM EST Continued Stay Note [facility] Patient Name: Trung Pool Today's Date: [...] she has sent Mr Pool's file to [facility] and they are reviewing him. Case management will continue to follow. I received a phone call back from Samia/Gerardo. [facility] has looked at Mr Pool and has denied him. The last time Mr Pool was at [facility], he had behaviors and left AMA. Since [facility] has denied him, he is not able to go to any [facility] in the [facility]. Case management will continue to follow. Final Discharge Disposition Code 03 - senior living facility (SNF) Discharge Codes No documentation. Expected Discharge Date and Time Expected Discharge Date Expected Discharge Time Jul 23, 2025 Monalisa Reilly RN * Therapy Wound Care Treatment - Duglas Mayes, PT - 07/20/2025 10:07 AM EST Images from the original note were not included. Acute Care - Wound/Debridement Treatment Note [facility] Patient Name: Trung Pool : 1955 Today's Date: 07/20/2025 Admit Date: 06/25/2025 Visit Dx: ICD-10-CM ICD-9-CM 1. Cellulitis of left lower extremity L03.116 682.6 2. Hematuria, unspecified type R31.9 599.70 3. Urinary tract infection associated with indwelling urethral catheter, initial encounter T83.085R309.64 N39.0 599.0 4. Diarrhea, unspecified type R19.7 [...] of migraine headaches 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 Left leg cellulitis [...] fusion C3-4; Surgeon: Tyree Tan MD; Location: [facility]; Service: Neurosurgery; Laterality: Bilateral; AORTOGRAM N/A 01/26/2024 Procedure: ABDOMINAL AORTIC ANGIOGRAM, LLE ANGIOGRAM, LEFT ANTERIOR TIBIAL ATHERECTOMY, LEFT ANTERIOR TIBIAL ANGIOPLASTY; Surgeon: Archie Olvera MD; Location: [facility]; Service: Vascular; Laterality: N/A; CONTRAST: 50 ML, FT: 2 MIN 54 SEC, DOSE: 66 MGY. AORTOGRAM Left 07/03/2025 Procedure: ARTERIOGRAM LOWER EXTREMITY; Surgeon: Vaughn Hollingsworth DO; Location: [facility]; Service: Vascular; Laterality: Left; FT-6MINS [...] ASSISTED CLOSURE; Surgeon: Cecil Buenrostro Jr., MD;Location: [facility]; Service: Orthopedics; Laterality: Left; INCISION AND DRAINAGE LEG Left 07/25/2023 Procedure: INCISION AND DRAINAGE HEEL, WOUND VAC; Surgeon: Cecil Buenrostro Jr., MD; Location: [facility]; Service: Orthopedics; Laterality: Left; INCISION AND DRAINAGE LEG Left 07/03/2025 Procedure: DEBRIDEMENT WOUND, PLACEMENT OF WOUND VAC; Surgeon: Vaguhn Hollingsworth DO; Location: [facility]; Service: [...] Laterality: Left; Please coordinate with Gautam Patel ([facility]) [phone] who will bring coils LUMBAR DISCECTOMY N/A [...] 07/20/25799 Periwound Care dry periwound area maintained 07/20/25 08 Wound Output (mL) 100 07/20/25 08 Wound Left posterior heel (Active) Wound Image 07/20/25 08 Dressing Appearance intact;moist drainage 07/20/25799 Dressing Removed Type gauze 07/20/25799 Confirmed Empty Wound Bed Yes, visual inspection of wound bed 07/20/25799 Closure Adhesive bandage 07/19/25 1600 Base moist;pink;red 07/20/25799 Periwound dry;intact 07/20/25799 Periwound Temperature warm 07/20/25799 Periwound Skin Turgor soft 07/20/25799 Edges irregular 07/20/25799 Drainage Characteristics/Odor serosanguineous 07/20/25799 Drainage Amount small 07/20/25 08 Care, Wound irrigated with;wound cleanser 07/20/25799 Dressing Care dressing changed;foam;low-adherent;silver impregnated 07/20/25799 Periwound Care cleansed with pH balanced cleanser;dry periwound area maintained 07/20/25 08 Wound 06/26/25 0150 Left medial coccyx Pressure Injury (Active) Dressing Appearance dry;intact;no drainage 07/20/25 040 Closure None;Open to air 07/19/25 1600 Base unable to visualize 07/20/25 040 Periwound excoriated;redness 07/19/252199 Periwound Temperature warm 07/19/25 2200 Periwound Skin Turgor soft 07/19/25 220 Care, Wound cleansed with;soap and water 07/19/25 2225 Dressing Care silicone border foam 07/20/25 0400 Wound 06/26/25 0150 Left posterior greater trochanter Pressure Injury (Active) Dressing Appearance open to air 07/20/25 040 Closure None;Open to air 07/19/25 1600 Base bleeding;moist;red 07/19/252199 Periwound excoriated;macerated;moist;redness 07/19/252199 Periwound Temperature warm 07/19/25 2200 Periwound Skin Turgor soft 07/19/25 220 Edges open 07/19/252199 Drainage Characteristics/Odor sanguineous 07/19/252199 [...] Setting continuous therapy 07/20/25799 Dressing foam, black 07/20/25 08 Pressure Setting 125 mmHg 07/20/25799 Sponges Inserted 1 07/20/25799 Sponges Removed 1 07/20/25799 Finger sweep complete Yes 07/20/25799 Lymphedema Row Name 07/20/25799 Lymphedema Edema Assessment Ptting Edema Category By severity - Pitting Edema Moderate - Compression/Skin Care Compression/Skin Care skin care;wrapping location;bandaging - Skin Care washed/dried;lotion applied -MF Wrapping Location [...] bed -MF Base moist;pink;red -MF Periwound dry;intact -MF Periwound Temperature warm -MF Periwound Skin [...] LEFT FOOT -RS Additional Comments: PER MD DARRICK REYNOSO Therapy Setting continuous therapy -MF Dressing foam, black -MF Pressure Setting 125 mmHg -MF Sponges Inserted 1 -MF Sponges Removed 1 -MF Finger sweep complete Yes -MF 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) - Properties Group Placement Date: 07/03/25 -RS Location: LEFT FOOT -RS Additional Comments: PER MD DARRICK REYNOSO 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 no significant change in wound measurements noted today, but skin integrity of LE significantly improved with use of unna boot. PT will cont with unna boot changes every 2-3 days with wound vac changes. - Row Name 07/20/25 0800 Positioning and Restraints Pre-Treatment Position in bed -MF Post Treatment Position bed -MF In Bed supine;call light within reach - User Llanes (r) = Recorded By, (t) = Taken By, (c) = Cosigned By Initials Name Provider Type MF Duglas Mayes, PT Physical Therapist Margarita Olvera RN Registered Nurse Kristan Giordano RN Registered Nurse Henrietta Blakely RN Registered Nurse Alessandra Whitaker, JESSEE Registered Nurse Physical Therapy Education Title: PT OT ELASTIC YARN TWISTER HELPER Therapies (Done) Topic: Physical Therapy (Done) Point: [...] Re-Cert Due Date 07/20/25 - Untimed Charges 39514-Zjyr Boot 10 -MF 55656-Dglbfincu debridement 10 -MF 43123-Tyu Pressure wound to 50 sqcm 25 -MF [...] associated with indwelling urethral catheter, initial encounter T83.486F794.64 N39.0 599.0 4. Diarrhea, unspecified type R19.7 [...] of migraine headaches 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 Left leg cellulitis [...] Cecil Buenrostro Jr., MD; Location: [facility]; Service: Orthopedics; Laterality: Left; ANTERIOR CERVICAL DISCECTOMY W/ FUSION Bilateral 07/17/2020 Procedure: Cervical discectomy anterior with fusion C3-4; Surgeon: Tyree Tan MD; Location: [facility]; Service: Neurosurgery; Laterality: Bilateral; AORTOGRAM N/A 01/26/2024 Procedure: ABDOMINAL AORTIC ANGIOGRAM, LLE ANGIOGRAM, LEFT ANTERIOR TIBIAL ATHERECTOMY, LEFT ANTERIOR TIBIAL ANGIOPLASTY; Surgeon: Archie Olvera MD; Location: [facility]; Service: Vascular; Laterality: N/A; CONTRAST: 50 ML, FT: 2 MIN 54 SEC, DOSE: 66 MGY. AORTOGRAM Left 07/03/2025 Procedure: ARTERIOGRAM LOWER EXTREMITY; Surgeon: Vaughn Hollingsworth DO; Location: [facility]; Service: Vascular; Laterality: Left; FT-6MINS 24SEC 140 MGY CONTRAST -15ML BACK SURGERY FOR DISC HERNIATION CARDIAC CATHETERIZATION CARDIAC CATHETERIZATION N/A 09/04/2024 Procedure: Peripheral angiography - Left lower extremity angio - Right femoral access; Surgeon: Jared Marcano MD; Location: [facility]ASIVE LOCATION; Service: Peripheral Vascular; Laterality: N/A; CORONARY ANGIOPLASTY WITH STENT PLACEMENT stent x 1 INCISION AND DRAINAGE FOOT Left 06/17/2023 Procedure: LEFT FOOT DEBRIDEMENT WOUND VACUUM ASSISTED CLOSURE; Surgeon: Cecil Buenrostro Jr., MD;Location: [facility]; Service: Orthopedics; Laterality: Left; INCISION AND DRAINAGE LEG Left 07/25/2023 Procedure: INCISION AND DRAINAGE HEEL, WOUND VAC; Surgeon: Cecil Buenrostro Jr., MD; Location: [facility]; Service: Orthopedics; Laterality: Left; INCISION AND DRAINAGE LEG Left 07/03/2025 Procedure: DEBRIDEMENT WOUND, PLACEMENT OF WOUND VAC; Surgeon: Vaughn Hollingsworth DO; Location: [facility]; Service: Vascular; Laterality: Left; INTERVENTIONAL RADIOLOGY PROCEDURE N/A 05/02/2019 Procedure: IVC FILTER PLACEMENT; Surgeon: Pedro Zapien MD; Location: [facility]IVE LOC[facility]; Service: Interventional Radiology INTERVENTIONAL RADIOLOGY PROCEDURE Left 09/07/2024 Procedure: LEFT peroneal arteriovenous fistula embolization - Right femoral access; Surgeon: Jared Marcano MD; Location: [facility]; Service: Cardiovascular; Laterality: Left; Please coordinate with Gautam Patel ([facility] [phone] who will bring coils LUMBAR DISCECTOMY N/A 05/03/2019 Procedure: THORACIC LAMINECTOMY T11-12; Surgeon: Tyree Tan MD; Location: [facility]; Service: Neurosurgery General Information Row Name 07/19/25 145 OT Time and Intention Document Type therapy note (daily note) - Mode of Treatment occupational therapy - Row Name 07/19/25 145 General Information Patient Profile Reviewed yes - Existing Precautions/Restrictions fall;other (see comments) contact spore, R AKA, wound vac, [place] - Barriers to Rehab medically complex;previous functional deficit - Row Name 07/19/25 145 Cognition Orientation Status (Cognition) oriented x 3 - Row Name 07/19/25 145 Safety Issues/Impairments Affecting Functional Mobility Safety Issues [...] - Row Name 07/19/25 145 Grooming Assessment/Training [place] Level (Grooming) wash face, hands;set up - [...] strengthening. Minimal fatigue - Therapeutic Exercise shoulder -CH Row Name 07/19/25 1456 Balance Balance Assessment [...] Pain Interventions activity participation with increased pain -[facility] Name 07/19/25 1501 Pain Scale: FACES Pre/Post-Treatment Pain: FACES Scale, Pretreatment 0-->no hurt - Posttreatment Pain Rating 2-->hurts little bit -[facility] Name 07/19/25 1501 Plan of Care Review [...] Review/Discharge Plan (OT) Anticipated Discharge Disposition (OT) senior living facility - Row Name 07/19/25 1501 Vital Signs Pre Patient Position Sitting - Intra Patient Position Sitting - Post Patient Position Sitting - Row Name 07/19/25 1501 Positioning and Restraints Pre-Treatment Position in bed EOB - Post Treatment Position bed EOB - In [...] Therapist Occupational Therapy Education Title: PT OT ELASTIC YARN TWISTER HELPER Therapies (In Progress) Topic: Occupational Therapy (In [...] Re-Cert Due Date 07/27/25 - Timed Charges 28579 - OT Therapeutic Exercise Minutes 10 -CH 91347 - OT Therapeutic Activity Minutes 20 -CH Total Minutes Timed Charges Total Minutes 30 -CH Total Minutes 30 -CH User Llanes (r) = Recorded By, (t) = Taken By, (c) = Cosigned By Initials Name Provider Type Shyla Tarango OT Occupational Therapist Therapy Charges for Today Code Description Service Date Service Provider Modifiers Qty [id number] OT THER PROC EA 15 MIN 07/19/2025 Shyla Tarango OT GO 1 [id number] HC OT THERAPEUTIC ACT EA 15 MIN 07/19/2025 Shyla Tarango OT GO 1 Shyla Tarango OT 07/19/2025 * Case Management/Social Work - Monalisa Reilly RN - 07/19/2025 11:50 AM EST Continued Stay Note [facility] Patient Name: Trung Pool Today's Date: 07/19/2025 Admit Date: 06/25/2025 Plan: SNF Discharge Plan Row Name 07/19/25 1140 Plan Plan SNF Patient/Family in Agreement with Plan yes Plan Comments I have received a phone call from Rosenda at [facility]. Unfortunately [facility] is not in network with Mr Pool's insurance. I also received a phone call fromLuz at [facility], and they do not have any male beds available. I was able to reachDenise at [facility], and they are in network with Mr Pool's insurance. I have sent over a referral. I spoke with Mr Pool at bedside and updated him on the fact that the only facilities that [place] accept his insurance and have a bed [...] JOHNATHON Severino and Dr Alcantara with the [facility] team. Mere has messaged Dr. Andres. Case management will continue to follow. Discharge Codes No documentation. Expected Discharge Date and Time Expected Discharge Date Expected Discharge Time Jul 20, 2025 Monalisa Reilly RN * Case Management/Social Work - Monalisa Reilly RN - 07/18/2025 1:59 PM EST Continued Stay Note [facility] Patient Name: Trung Pool Today's Date: 07/18/2025 Admit Date: 06/25/2025 Plan: Short term rehab Discharge Plan Row Name 07/18/25 1349 Plan Plan Short term rehab Plan Comments I have gone through and called every facility within a 20 [address] radius of Mr Diaz house and [facility]. The only facilities that take Mr Diaz insurance are [facility], [facility], [facility], [facility], [facility] skilled rehab unit, [facility], [facility], [facility], [facility], [facility], and [facility] swing bed. At this time, I have referrals out to all [facility] facilities, [facility], [facility], [facility], [facility], and [facility] bed. I have called and left a voicemail with both [facility] and [facility] bed to call me back about thereferrals. I have made the referrals to [facility] and [facility] today. I am waiting to hear back from [facility] and [facility] to see if they can offer him a bed. Please note that Mr Pool has stated that he does not [facility]. Case management will continue to follow. Final Discharge Disposition Code 03 - senior living facility (SNF) Discharge Codes No documentation. Expected [...] associated with indwelling urethral catheter, initial encounter T83.855D937.64 N39.0 599.0 4. Diarrhea, unspecified type R19.7 [...] of migraine headaches 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 Left leg cellulitis [...] LEFT; Surgeon: Cecil Buenrostro Jr., MD; Location: [facility]; Service: Orthopedics; Laterality: Left; ANTERIOR CERVICAL DISCECTOMY W/ FUSION Bilateral 07/17/2020 Procedure: Cervical discectomy anterior with fusion C3-4; Surgeon: Tyree Tan MD; Location: [facility]; Service: Neurosurgery; Laterality: Bilateral; AORTOGRAM N/A 01/26/2024 Procedure: ABDOMINAL AORTIC ANGIOGRAM, LLE ANGIOGRAM, LEFT ANTERIOR TIBIAL ATHERECTOMY, LEFT ANTERIOR TIBIAL ANGIOPLASTY; Surgeon: Archie Olvera MD; Location: [facility]; Service: Vascular; Laterality: N/A; CONTRAST: [...] ASSISTED CLOSURE; Surgeon: Cecil Buenrostro Jr., MD;Location: [facility]; Service: Orthopedics; Laterality: Left; INCISION AND DRAINAGE LEG Left 07/25/2023 Procedure: INCISION AND DRAINAGE HEEL, WOUND VAC; Surgeon: Cecil Buenrostro Jr., MD; Location: [facility]; Service: Orthopedics; Laterality: Left; INCISION AND DRAINAGE LEG Left 07/03/2025 Procedure: DEBRIDEMENT WOUND, PLACEMENT OF WOUND VAC; Surgeon: Vaughn Hollingsworth DO; Location: [facility]; Service: Vascular; Laterality: Left; INTERVENTIONAL RADIOLOGY PROCEDURE N/A 05/02/2019 Procedure: IVC FILTER PLACEMENT; Surgeon: Pedro Zapien MD; Location: [facility]; Service: Interventional Radiology INTERVENTIONAL RADIOLOGY PROCEDURE Left 09/07/2024 Procedure: LEFT peroneal arteriovenous fistula embolization - Right femoral access; Surgeon: Jared Marcano MD; Location: [facility]; Service: Cardiovascular; Laterality: Left; Please coordinate with Gautam Patel ([facility] [phone] who will bring coils LUMBAR DISCECTOMY N/A 05/03/2019 Procedure: THORACIC LAMINECTOMY T11-12; Surgeon: Tyree Tan MD; Location: [facility]; Service: Neurosurgery General Information Row Name 07/18/25 1501 Physical Therapy Time and Intention Document Type therapy note (daily note) -KG Mode of Treatment physical therapy -KG Row Name 07/18/25 1507 General Information Patient Profile Reviewed yes -KG Existing Precautions/Restrictions fall;other (see comments) Contact Spore; remote R AKA, chronic De Los Santos catheter; 07/03 transmetatarsal debridement and angiogram LLE with wound vac -KG Row Name 07/18/25 1507 Cognition Orientation Status (Cognition) oriented x 3 -KG Row Name 07/18/25 1507 Safety Issues/Impairments Affecting Functional Mobility Safety Issues Affecting Function (Mobility) insight into deficits/self- awareness;safety precautionsfollow-through/compliance;safety precaution awareness -KG Impairments Affecting Function (Mobility) balance;coordination;endurance/activity tolerance;pain;range of motion (ROM);sensation/sensory awareness;strength -KG User Llanes (r) = Recorded By, (t) = Taken By, (c) = Cosigned By Initials Name Provider Type KG Lori Rajan Physical Therapist Mobility Row Name 07/18/25 1510 Bed Mobility Bed Mobility rolling left;rolling right -KG Rolling Left Preston (Bed Mobility) standby assist;verbal cues -KG Rolling Right Preston (Bed Mobility) standby assist;verbal cues -KG Scooting/Bridging Preston (Bed Mobility) standby assist -KG Supine-Sit Preston (Bed Mobility) standby assist -KG Sit-Supine Preston (Bed Mobility) standby assist -KG Assistive Device (Bed Mobility) bed rails -KG Row Name 07/18/25 1510 Transfers Comment, (Transfers) declined t/f to chair but very motivated to sit EOB and work on functional movement, exercises -KG Row Name 07/18/25 151 Sit-Stand Transfer Sit-Stand Preston (Transfers) unable to assess -KG User Llanes [...] Provider Type PAOLA Lori Rajan Physical Therapist Goals/Plan No documentation. Clinical Impression [...] PAOLA Lori Rajan Physical Therapist Maxine Maldonado, JESSEE Registered Nurse Physical Therapy Education Title: PT OT ELASTIC YARN TWISTER HELPER Therapies (In Progress) Topic: Physical Therapy (In [...] PT Received On 07/18/25 -KG Timed Charges 43532 - PT Therapeutic Exercise Minutes 23 -KG 79715 - PT Therapeutic Activity Minutes 15 -KG Total Minutes Timed Charges Total Minutes 38 -KG Total Minutes 38 -KG User Llanes (r) = Recorded By, (t) = Taken By, (c) = Cosigned By Initials Name Provider Type KG Lori Rajan Physical Therapist Therapy Charges for Today Code Description Service Date Service Provider Modifiers Qty 79603491611 HC PT THER PROC EA 15 MIN 07/18/2025 Lori Rajan GP 2 [id number] HC PT THERAPEUTIC ACT EA 15 MIN 07/18/2025 Lori Rajan GP 1 PT G-Codes Outcome Measure Options: AM-PAC 6 Clicks Basic Mobility (PT) AM-PAC 6 Clicks Score (PT): 10 AM-PAC 6 Clicks Score (OT): 16 PT Discharge Summary Anticipated Discharge Disposition (PT): inpatient rehabilitation facility Lori Rajan 07/18/2025 * Therapy Progress Report/Re-Cert - [...] associated with indwelling urethral catheter, initial encounter T83.317J558.64 N39.0 599.0 4. Diarrhea, unspecified type R19.7 [...] of migraine headaches 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 Left leg cellulitis [...] femoral access; Surgeon: Jared Marcano MD; Location: [facility]; Service: Peripheral Vascular; Laterality: N/A; CORONARY ANGIOPLASTY WITH STENT PLACEMENT stent x 1 INCISION AND DRAINAGE FOOT Left 06/17/2023 Procedure: LEFT FOOT DEBRIDEMENT WOUND VACUUM ASSISTED CLOSURE; Surgeon: Cecil Buenrostro Jr., MD;Location: [facility]; Service: Orthopedics; Laterality: Left; INCISION AND DRAINAGE LEG Left 07/25/2023 Procedure: INCISION AND DRAINAGE HEEL, WOUND VAC; Surgeon: Cecil Buenrostro Jr., MD; Location: [facility]; Service: Orthopedics; Laterality: Left; INCISION AND DRAINAGE LEG Left 07/03/2025 Procedure: DEBRIDEMENT WOUND, PLACEMENT OF WOUND VAC; Surgeon: Vaughn Hollingsworth DO; Location: [facility]; Service: Vascular; Laterality: Left; INTERVENTIONAL RADIOLOGY PROCEDURE N/A 05/02/2019 Procedure: IVC FILTER PLACEMENT; Surgeon: Pedro Zapien MD; Location: [facility]; Service: Interventional Radiology INTERVENTIONAL RADIOLOGY PROCEDURE Left 09/07/2024 Procedure: LEFT peroneal arteriovenous fistula embolization - Right femoral access; Surgeon: Jared Marcano MD; Location: [facility]; Service: Cardiovascular; Laterality: Left; Please coordinate with Gautam Patel ([facility]) [phone] who will bring coils LUMBAR DISCECTOMY N/A 05/03/2019 Procedure: THORACIC LAMINECTOMY T11-12; Surgeon: Tyree Tan MD; Location: [facility]; Service: Neurosurgery General Information Row Name 07/17/25 1531 OT Time and Intention Document Type progress note/recertification -LR Mode of Treatment occupational therapy -LR Row Name 07/17/25 153 General Information Patient Profile Reviewed yes -LR Existing Precautions/Restrictions fall;other (see comments) Contact Spore; remote R AKA, chronic De Los Santos catheter; 07/03 transmetatarsal debridement and angiogram LLE with wound vac -LR Barriers to Rehab medically complex;previous functional deficit -LR Row Name 07/17/25 153 Cognition Orientation Status (Cognition) oriented x 3 -LR Row Name 07/17/25 1531 Safety Issues/Impairments Affecting Functional Mobility Safety Issues [...] Mobility rolling left;rolling right -LR Rolling Left Preston (Bed Mobility) standby assist;verbal cues -LR Rolling Right Preston (Bed Mobility) standby assist;verbal cues -LR Assistive Device (Bed Mobility) bed rails -LR Row Name 07/17/25 1532 Transfers Transfers bed-chair transfer -LR Row Name 07/17/25 1532 Bed-Chair Transfer Bed-Chair Preston (Transfers) dependent (less than 25% patient effort);2 person assist;verbal cues -LR Assistive Device (Bed-Chair Transfers) lift device -LR Row Name 07/17/25 1532 Functional Mobility Patient was able to Ambulate no, other medical factors prevent ambulation -LR Row Name 07/17/25 1532 Activities of Daily Living BADL Assessment/Intervention grooming -LR Row Name 07/17/25 1532 Grooming Assessment/Training Preston Level (Grooming) wash face, hands;set up -LR Position (Grooming) supported sitting -LR User Llanes (r) = Recorded By, (t) = Taken By, (c) = Cosigned By Initials Name Provider Type Ivone Pinedo OT Occupational Therapist Obj/Interventions Row Name 07/17/25 [...] OT Occupational Therapist Goals/Plan Row Name 07/17/25 1539 Bed Mobility Goal 1 (OT) Activity/Assistive Device (Bed Mobility Goal 1, OT) rolling to left;rolling to right;sit to supine/supine to sit -LR Preston Level/Cues Needed (Bed Mobility Goal 1, OT) minimum assist (75% or more patient effort);verbal cues required;nonverbal cues (demo/gesture) required;moderate assist (50-74% patient effort) -LR Time Frame (Bed Mobility Goal 1, OT) exterminator goal (LTG);10 days -LR Progress/Outcomes (Bed Mobility Goal 1, OT) goal met;new goal;goal ongoing -LR Row Name 07/17/25 153 Transfer Goal 1 (OT) Activity/Assistive Device (Transfer Goal 1, OT) [id number] -LR Preston Level/Cues Needed (Transfer Goal 1, OT) moderate assist (50-74% patient effort) -LR Time Frame (Transfer Goal 1, OT) exterminator goal (LTG);10 days -LR Progress/Outcome (Transfer Goal 1, OT) goal no longer appropriate -LR Row Name 07/17/25 1531 Dressing Goal 1 (OT) Activity/Device (Dressing Goal 1, OT) upper body dressing;lower body dressing -LR Preston/Cues Needed (Dressing Goal 1, OT) standby assist -LR Time Frame (Dressing Goal 1, OT) short term goal (STG);4 days -LR Strategies/Barriers (Dressing Goal 1, OT) sitting EOB -LR Progress/Outcome (Dressing Goal 1, OT) goal ongoing;new goal -LR Row Name 07/17/25 1531 Toileting Goal 1 (OT) Activity/Device (Toileting Goal 1, OT) adjust/manage clothing;perform perineal hygiene;commode, bedside with drop arms -LR Preston Level/Cues Needed (Toileting Goal 1, OT) moderate assist (50-74% patient effort) -LR Time Frame (Toileting Goal 1, OT) short term goal (STG);5 days -LR Progress/Outcome (Toileting Goal 1, OT) goal no longer appropriate -LR Row Name 07/17/25 153 Grooming Goal 1 (OT) Activity/Device (Grooming Goal 1, OT) oral care;wash face, hands -LR Preston (Grooming Goal 1, OT) set-up required -LR Time Frame (Grooming Goal 1, OT) exterminator goal (LTG);1 week -LR Strategies/Barriers (Grooming Goal 1, OT) sitting EOB with good dynamic sitting balance -LR Row Name 07/17/25 153 Strength Goal 1 (OT) Strength Goal 1 (OT) Pt. will completed UE and core TE with progressive reps and resistance to support ADL and transfer independence. -LR Time Frame (Strength Goal 1, OT) exterminator goal (LTG);10 days -LR Progress/Outcome (Strength Goal [...] participation with tolerable pain -LR Row Name 07/17/25 153 Pain Scale: FACES Pre/Post-Treatment Pain: FACES Scale, [...] mobility. Continue IPOT POC. -LR Row Name 07/17/25 153 Therapy Plan Review/Discharge Plan (OT) Anticipated Discharge Disposition (OT) senior living facility -LR Row Name 07/17/25 153 Vital Signs O2 Delivery Pre Treatment room air -LR O2 Delivery Intra Treatment room air -LR O2 Delivery Post Treatment room air -LR Pre Patient Position Supine -LR Intra Patient Position Side Lying -LR Post Patient Position Sitting -LR Row Name 07/17/25 153 Positioning and Restraints Pre-Treatment Position in bed -LR Post Treatment Position chair -LR In Chair notified nsg;reclined;call light within reach;encouraged to call for assist;exit alarm on;waffle cushion;legs elevated;on mechanical lift sling -LR User Llanes (r) = Recorded By, (t) = Taken By, (c) = Cosigned By Initials Name Provider Type Ivone Pinedo OT Occupational Therapist Outcome Measures Row Name 07/17/25 [...] Therapist Occupational Therapy Education Title: PT OT ELASTIC YARN TWISTER HELPER Therapies (In Progress) Topic: Occupational Therapy (In Progress) Point: ADL training (In Progress) Learning Progress Summary Patient Acceptance, E, NR by LR at 07/17/2025 154 Point: Home exercise program (In Progress) Learning Progress Summary Patient Acceptance, E, NR by LR at 07/17/2025 154 Point: Precautions (In Progress) Learning Progress Summary [...] Time Calculation: Time Calculation- OT Row Name 07/17/251542 Time Calculation- OT OT Start Time 1355 -LR OT Received On 07/17/25 -LR OT Goal Re-Cert Due Date 07/27/25 -LR Timed Charges 46671 - OT Therapeutic Activity Minutes 26 -LR Total Minutes Timed Charges Total Minutes 26 -LR Total Minutes 26 -LR User Llanes (r) = Recorded By, (t) = Taken By, (c) = Cosigned By Initials Name Provider Type LR Ivone Horan OT Occupational Therapist Therapy Charges for Today Code Description Service Date Service Provider Modifiers Qty [id number] OT THERAPEUTIC ACT EA 15 MIN 07/17/2025 Ivone Horan OT GO 2 Ivone Horan OT 07/17/2025 * Case Management/Social Work - Monalisa Reilly RN - 07/16/2025 3:26 PM EST Continued Stay Note COLLIN Fernando Patient Name: Trung Pool Today's Date: 07/16/2025 Admit Date: 06/25/2025 Plan: Short term rehab Discharge Plan Row Name 07/16/25 1517 Plan Plan Short term rehab Patient/Family in Agreement with Plan yes Plan Comments I spoke with Mr Pool at bedside. Mr Pool stated that he wanted case management to tryto get him admitted to [facility] for short term rehab. He also stated that he would like to be around the [place], [place] area. I have called and left a voicemail for Juani, admissions at [facility]. I have also faxed over a referral. Mr Pool was also interested in a facility in [place] but not the one by the [facility] . I have looked up facilities in [place], [facility]. Mr Pool also was interested in going to [place], but not to [facility]. I have called [facility] and confirmedthat they have closed their swing bed unit. This means that the only facility in [place] is [facility]. Case management will continue to follow. Final Discharge Disposition Code 03 - senior living facility (SNF) Discharge Codes No documentation. Expected Discharge Date and Time Expected Discharge Date Expected Discharge Time Jul 20, 2025 Monalisa Reilly, RN * Therapy Wound Care Treatment - [place] Ashley, PT - 07/14/2025 10:06 AM EDT Acute Care - Wound/Debridement Treatment Note [facility] Patient Name: Trung Pool : 1955 Today's Date: 07/14/2025 Admit Date: 06/25/2025 Visit Dx: ICD-10-CM ICD-9-CM 1. Cellulitis of left lower extremity L03.116 682.6 2. Hematuria, unspecified type R31.9 599.70 3. Urinary tract infection associated with indwelling urethral catheter, initial encounter T83.278G951.64 N39.0 599.0 4. Diarrhea, unspecified type R19.7 [...] of migraine headaches 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 Left leg cellulitis [...] TIBIAL ANGIOPLASTY; Surgeon: Archie Olvera MD; Location: [facility]; Service: Vascular; Laterality: N/A; CONTRAST: 50 ML, FT: 2 MIN 54 SEC, DOSE: 66 MGY. AORTOGRAM Left 07/03/2025 Procedure: ARTERIOGRAM LOWER EXTREMITY; Surgeon: Vaughn Hollingsworth DO; Location: [facility]; Service: Vascular; Laterality: Left; FT-6MINS 24SEC 140 MGY CONTRAST -15ML BACK SURGERY FOR DISC HERNIATION CARDIAC CATHETERIZATION CARDIAC CATHETERIZATION N/A 09/04/2024 Procedure: Peripheral angiography - Left lower extremity angio - Right femoral access; Surgeon: Jared Marcano MD; Location: [facility]; Service: Peripheral Vascular; Laterality: N/A; CORONARY ANGIOPLASTY WITH STENT PLACEMENT stent x 1 INCISION AND DRAINAGE FOOT Left 06/17/2023 Procedure: LEFT FOOT DEBRIDEMENT WOUND VACUUM ASSISTED CLOSURE; Surgeon: Cecil Buenrostro Jr., MD;Location: [facility]; Service: Orthopedics; Laterality: Left; INCISION AND DRAINAGE LEG Left 07/25/2023 Procedure: INCISION AND DRAINAGE HEEL, WOUND VAC; Surgeon: Cecil Buenrostro Jr., MD; Location: [facility]; Service: Orthopedics; Laterality: Left; INCISION AND DRAINAGE LEG Left 07/03/2025 Procedure: DEBRIDEMENT WOUND, PLACEMENT OF WOUND VAC; Surgeon: Vaughn Hollingsworth DO; Location: [facility]; Service: Vascular; Laterality: Left; INTERVENTIONAL RADIOLOGY PROCEDURE N/A 05/02/2019 Procedure: IVC FILTER PLACEMENT; Surgeon: Pedro Zapien MD; Location: [facility]; Service: Interventional Radiology INTERVENTIONAL RADIOLOGY PROCEDURE Left 09/07/2024 Procedure: LEFT peroneal arteriovenous fistula embolization - Right femoral access; Surgeon: Jared Marcano MD; Location: [facility]; Service: Cardiovascular; Laterality: Left; Please coordinate with Gautam Patel ([facility]) [phone] who will bring coils LUMBAR DISCECTOMY N/A 05/03/2019 Procedure: THORACIC LAMINECTOMY T11-12; Surgeon: Tyree Tan MD; Location: [facility]; Service: Neurosurgery Wound 01/15/24 1941 Left [...] 07/13/251999 Periwound Care dry periwound area maintained 07/13/25 2000 Wound 07/03/25 Right anterior groin Surgical Puncture [...] Retired Wound - Properties Group Placement Date: 07/03/25RS Placement Time: 1534RS Side: Right -RS Orientation: anterior -RS Location: groin -RS Retired Wound - Properties Group Placement Date: 07/03/25RS Placement Time: 153RS Side: Right -RS Orientation: anterior -RS Location: groin -RS Retired Wound - Properties Group Date first assessed: 07/03/25RS Time first assessed: 1534 -RS Side: Right -RS Location: groin -RS Row Name 07/14/25 100 NPWT (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 Wound Therapy) 07/03/25 LEFT FOOT NPWT (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 Wound Therapy) - Properties Group Placement Date: 07/03/25 -RS Location: LEFT FOOT -RS Additional Comments: PER MD DARRICK REYNOSO Therapy Setting continuous therapy -KW Pressure Setting 125 mmHg -KW 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) - Properties Group Placement Date: 07/03/25 -RS Location: LEFT FOOT -RS Additional Comments: PER MD DARRICK REYNOSO 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) - Properties Group Placement Date: 07/03/25 -RS Location: LEFT FOOT -RS Additional Comments: PER MD DARRICK REYNOSO 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) - Properties Group Placement Date: 07/03/25 -RS Location: LEFT FOOT -RS Additional Comments: PER MD DARRICK REYNOSO Row Name 07/14/25 100 Plan of Care Review Plan of Care Reviewed With patient -KW Progress no change -KW Outcome Evaluation Patient's wound vac without leaks or issues. Patient without complaints. Patientcontinues to benefit from skilled PT services and NPWT to improve wound healing. -KW Row Name 07/14/25 100 Positioning and Restraints Pre-Treatment Position in bed -KW Post Treatment Position bed -KW In Bed supine;call light within reach;encouraged to call for assist -KW User Llanes (r) = Recorded By, (t) = Taken By, (c) = Cosigned By Initials Name Provider Type Margarita Olvera Niall, RN Registered Nurse Kristan Giordano RN Registered Nurse Henrietta Blakely RN Registered Nurse Ashley Manzanares, PT Physical Therapist Mary Mayes RN Registered Nurse Alessandra Whitaker RN Registered Nurse Physical Therapy Education Title: PT OT ELASTIC YARN TWISTER HELPER Therapies (Done) Topic: Physical Therapy (Done) Point: [...] VU,NR by NS at 06/26/2025 161 Point: Body mechanics (Done) Learning Progress Summary [...] Calculation Start Time 1006 -KW Untimed Charges 20815-Nan Pressure wound to 50 sqcm 10 -KW Total Minutes Untimed Charges Total Minutes 10 -KW Total Minutes 10 -KW User Llanes (r) = Recorded By, (t) = Taken By, (c) = Cosigned By Initials Name Provider Type KW Ashley Sanchez, MARY Physical Therapist Therapy Charges for Today Code Description Service Date Service Provider Modifiers Qty [id number] HC PT NEG PRESS WOUND TO 50SQCM DME1 07/14/2025 Ashley Sanchez, MARY 1 PT G-Codes Outcome Measure Options: AM-PAC 6 Clicks Basic Mobility (PT) AM-PAC 6 Clicks Score (PT): 11 AM-PAC 6 Clicks Score (OT): 14 Ashley Sanchez PT 07/14/2025 * Significant Note - Kate Sherwood APRN - 07/14/2025 6:46 AM EDT Contacted by direct support staff member early in the shift that patient was confused. Ordered UA @ 2200, and offered restraints. RN deferred restraints at this time. Contacted by direct support staff member approximately 4 AM that patient had removed [...] - 07/13/2025 10:15 PM EDT Contacted by direct support staff member that patient is now confused. According to [...] associated with indwelling urethral catheter, initial encounter T83.743V879.64 N39.0 599.0 4. Diarrhea, unspecified type R19.7 [...] of migraine headaches 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 Left leg cellulitis [...] LOWER EXTREMITY; Surgeon: Vaughn Hollingsworth DO; Location: [facility]; Service: Vascular; Laterality: Left; FT-6MINS 24SEC 140 MGY CONTRAST -15ML BACK SURGERY FOR DISC HERNIATION CARDIAC CATHETERIZATION CARDIAC CATHETERIZATION N/A 09/04/2024 Procedure: Peripheral angiography - Left lower extremity angio - Right femoral access; Surgeon: Jared Marcano MD; Location: [facility]; Service: Peripheral Vascular; Laterality: N/A; CORONARY ANGIOPLASTY WITH STENT PLACEMENT stent x 1 INCISION AND DRAINAGE FOOT Left 06/17/2023 Procedure: LEFT FOOT DEBRIDEMENT WOUND VACUUM ASSISTED CLOSURE; Surgeon: Cecil Buenrostro Jr., MD;Location: [facility]; Service: Orthopedics; Laterality: Left; INCISION AND DRAINAGE LEG Left 07/25/2023 Procedure: INCISION AND DRAINAGE HEEL, WOUND VAC; Surgeon: Cecil Buenrostro Jr., MD; Location: [facility]; Service: Orthopedics; Laterality: Left; INCISION AND DRAINAGE LEG Left 07/03/2025 Procedure: DEBRIDEMENT WOUND, PLACEMENT OF WOUND VAC; Surgeon: Vaughn Hollingsworth DO; Location: [facility]; Service: Vascular; Laterality: Left; INTERVENTIONAL RADIOLOGY PROCEDURE N/A 05/02/2019 Procedure: IVC FILTER PLACEMENT; Surgeon: Pedro Zapien MD; Location: [facility]; Service: Interventional Radiology INTERVENTIONAL RADIOLOGY PROCEDURE Left 09/07/2024 Procedure: LEFT peroneal arteriovenous fistula embolization - Right femoral access; Surgeon: Jared Marcano MD; Location: [facility]; Service: Cardiovascular; Laterality: Left; Please coordinate with Gautam Patel ([facility]) [phone] who will bring coils LUMBAR DISCECTOMY N/A 05/03/2019 Procedure: THORACIC LAMINECTOMY T11-12; Surgeon: Tyree Tan MD; Location: [facility]; Service: Neurosurgery General Information Row Name 07/13/25 1439 OT Time and Intention Subjective Information complains of;pain -CHRISTA Document Type therapy note (daily note) -CHRISTA Mode of Treatment occupational therapy;co-treatment -CHRISTA Patient Effort excellent -CHRISTA Symptoms Noted During/After Treatment fatigue -CHRISTA Row Name 07/13/25 8400 General Information Patient Profile Reviewed yes -CHRISTA [...] Cosigned By Initials Name Provider Type Fátima Mora, OT Occupational Therapist Lymphedema Row [...] Name 07/13/25 1434 Bed Mobility Rolling Left Preston (Bed Mobility) standby assist -CHRISTA Rolling Right Preston (Bed Mobility) standby assist;minimum assist (75% patient effort) pt. started SBA and last roll as fatigued to min A -CHRSITA Scooting/Bridging Preston (Bed Mobility) standby assist -CHRISTA Supine-Sit Preston (Bed Mobility) standby assist -CHRISTA Sit-Supine Preston (Bed Mobility) standby assist -CHRISTA Bed Mobility, Safety Issues decreased use of legs for bridging/pushing;impaired trunk control for bed mobility - Assistive Device (Bed Mobility) bed rails;head of bed elevated - Comment, (Bed Mobility) pt. sitting EOB, had [...] Transfers bed-chair transfer - Row Name 07/13/25 143 Bed-Chair Transfer Bed-Chair Preston (Transfers) moderate assist (50% patient effort);dependent (less [...] toileting;upper body dressing - Row Name 07/13/25 [facility] Upper Body Dressing Assessment/Training Preston Level (Upper Body Dressing) doff;don;moderate assist (50% patient effort) - Position (Upper Body Dressing) supine - Comment, (Upper Body Dressing) soiled gown changed out, pt. limited by lines and positionting - Row Name 07/13/25 143 Toileting Assessment/Training Preston Level (Toileting) dependent (less than 25% patient effort);perform perineal hygiene;change pad/brief;adjust/manage clothing - Position (Toileting) supine - User Llanes (r) = Recorded By, (t) = Taken By, (c) = Cosigned By Initials Name Provider Type Fátima Castle, OT Occupational Therapist Obj/Interventions Row Name 07/13/25 143 Shoulder (Therapeutic Exercise) Shoulder (Therapeutic Exercise) AROM (active range of motion) -CHRISTA Shoulder AROM (Therapeutic Exercise) bilateral;flexion;extension;10 repetitions;sitting -CHRISTA Row Name 07/13/25 1439 Elbow/Forearm (Therapeutic Exercise) Elbow/Forearm (Therapeutic Exercise) strengthening exercise -CHRISTA Elbow/Forearm Strengthening (Therapeutic Exercise) bilateral;flexion;extension;20 repititions;sitting mild to moderate manual resistance given/also working with pt. keeping midline with resistance -CHRISTA Row Name 07/13/25 1439 Motor Skills Therapeutic Exercise shoulder;elbow/forearm -CHRISTA Row Name 07/13/25 1439 Balance Static Sitting Balance supervision -CHRISTA Dynamic Sitting Balance standby assist -CHRISTA Position, Sitting Balance unsupported;sitting edge of bed -CHRISTA Balance Interventions weight shifting activity -CHRISTA Comment, Balance weight shift and scooting to w/c, resistance with TE -CHRISTA User Llanes (r) = Recorded By, (t) = Taken By, (c) = Cosigned By Initials Name Provider Type Fátima Castle, OT Occupational Therapist Goals/Plan Row Name 07/13/25 1444 Bed Mobility Goal 1 (OT) Activity/Assistive Device (Bed Mobility Goal 1, OT) rolling to left;rolling to right -CHRISTA Preston Level/Cues Needed (Bed Mobility Goal 1, OT) minimum assist (75% or more patient effort);verbal cues required;nonverbal cues (demo/gesture) required -CHRISTA Time Frame (Bed Mobility Goal 1, OT) exterminator goal (LTG);10 days -CHRISTA Progress/Outcomes (Bed Mobility Goal 1, OT) goal met -CHRISTA Row Name 07/13/25 1444 Transfer Goal 1 (OT) Activity/Assistive Device (Transfer Goal 1, OT) [id number]-ejmzb/cualz-ru-byu -CHRISTA Preston Level/Cues Needed (Transfer Goal 1, OT) moderate assist (50-74% patient effort) -CHRISTA Progress/Outcome (Transfer Goal 1, OT) good progress toward goal;goal ongoing -CHRISTA Row Name 07/13/25 1443 Bathing Goal 1 (OT) Activity/Device (Bathing Goal 1, OT) upper body bathing -CHRISTA Preston Level/Cues Needed (Bathing Goal 1, OT) minimum assist (75% or more patient effort);set-up required -CHRISTA Time Frame (Bathing Goal 1, OT) short term goal (STG);5 days -CHRISTA Progress/Outcomes (Bathing Goal 1, OT) goal ongoing -CHRISTA Row Name 07/13/251443 Toileting Goal 1 (OT) Activity/Device (Toileting Goal 1, OT) adjust/manage clothing;perform perineal hygiene;commode, bedside with drop arms -CHRISTA Preston Level/Cues Needed (Toileting Goal 1, OT) moderate [...] -CHRISTA Time Frame (Strength Goal 1, OT) exterminator goal (LTG);10 days -CHRISTA Progress/Outcome (Strength Goal [...] Review/Discharge Plan (OT) Anticipated Discharge Disposition (OT) senior living facility -CHRISTA Row Name 10/31/25 1441 Vital Signs Pre Systolic BP Rehab [...] rails up x2;LLE elevated;L heel elevated;notified ns -CHRISTA User Llanes (r) = Recorded By, [...] Nurse Occupational Therapy Education Title: PT OT ELASTIC YARN TWISTER HELPER Therapies (Done) Topic: Occupational Therapy (Done) Point: ADL training (Done) Learning Progress Summary Patient Acceptance, E,D, VU,NR by at 07/13/2025 1446 Comment: transfer safety with lines and wounds, w/c brake use, UE TE Acceptance, E, VU,NR by 1 at 07/10/2025 1624 Comment: OT POC; half-way goals; rehab potential; discharge planning Point: Home [...] - Fátima Mora, OT Occupational Therapist OT [facility] 02/26/21 - Juani Clark OT Occupational [...] Re-Cert Due Date 07/15/25 -CHRISTA Timed Charges 11680 - OT Therapeutic Exercise Minutes 15 -CHRISTA 61355 - OT Therapeutic Activity Minutes 15 -CHRISTA 45867 - OT Self Care/Mgmt Minutes 15 -CHRISTA Total Minutes Timed Charges Total Minutes 45 -CHRISTA Total Minutes 45 -CHRISTA User Llanes (r) = Recorded By, (t) = Taken By, (c) = Cosigned By Initials Name Provider Type Fátima Castle OT Occupational Therapist Therapy Charges for Today Code Description Service Date Service Provider Modifiers Qty 74020680868 HC OT THER PROC EA 15 MIN 07/13/2025 Fátima Mora OT GO 1 56612401290 HC OT THERAPEUTIC ACT EA 15 MIN 07/13/2025 Fátima Mora OT GO 1 57172758001 HC OT SELF CARE/MGMT/TRAIN EA 15 MIN [...] associated with indwelling urethral catheter, initial encounter T83.392P750.64 N39.0 599.0 4. Diarrhea, unspecified type R19.7 [...] of migraine headaches 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 Left leg cellulitis [...] TIBIAL ANGIOPLASTY; Surgeon: Archie Olvera MD; Location: [facility]; Service: Vascular; Laterality: N/A; CONTRAST: 50 ML, FT: 2 MIN 54 SEC, DOSE: 66 MGY. AORTOGRAM Left 07/03/2025 Procedure: ARTERIOGRAM LOWER EXTREMITY; Surgeon: Vaughn Hollingsworth DO; Location: [facility]; Service: Vascular; Laterality: Left; FT-6MINS 24SEC 140 MGY CONTRAST -15ML BACK SURGERY FOR DISC HERNIATION CARDIAC CATHETERIZATION CARDIAC CATHETERIZATION N/A 09/04/2024 Procedure: Peripheral angiography - Left lower extremity angio - Right femoral access; Surgeon: Jared Marcano MD; Location: [facility]; Service: Peripheral Vascular; Laterality: N/A; CORONARY ANGIOPLASTY WITH STENT PLACEMENT stent x 1 INCISION AND DRAINAGE FOOT Left 06/17/2023 Procedure: LEFT FOOT DEBRIDEMENT WOUND VACUUM ASSISTED CLOSURE; Surgeon: Cecil Buenrostro Jr., MD;Location: [facility]; Service: Orthopedics; Laterality: Left; INCISION AND DRAINAGE LEG Left 07/25/2023 Procedure: INCISION AND DRAINAGE HEEL, WOUND VAC; Surgeon: Cecil Buenrostro Jr., MD; Location: [facility]; Service: Orthopedics; Laterality: Left; INCISION AND DRAINAGE LEG Left 07/03/2025 Procedure: DEBRIDEMENT WOUND, PLACEMENT OF WOUND VAC; Surgeon: Vaughn Hollingsworth DO; Location: [facility]; Service: Vascular; Laterality: Left; INTERVENTIONAL RADIOLOGY PROCEDURE N/A 05/02/2019 Procedure: IVC FILTER PLACEMENT; Surgeon: Pedro Zapien MD; Location: [facility]; Service: Interventional Radiology INTERVENTIONAL RADIOLOGY PROCEDURE Left 09/07/2024 Procedure: LEFT peroneal arteriovenous fistula embolization - Right femoral access; Surgeon: Jared Marcano MD; Location: [facility]; Service: Cardiovascular; Laterality: Left; Please coordinate with Gautam Patel ([facility]) [phone] who will bring coils LUMBAR DISCECTOMY N/A 05/03/2019 Procedure: THORACIC LAMINECTOMY T11-12; Surgeon: Tyree Tan MD; Location: [facility]; Service: Neurosurgery General Information Row Name 07/13/25 8248 Physical Therapy Time and Intention Document Type [...] 1449 Bed Mobility Bed Mobility rolling left;rolling right;mwnwev-rwc-tznhdy -IG Rolling Left Preston (Bed Mobility) standby assist -IG Rolling Right Preston (Bed Mobility) standby assist;minimum assist (75% patient effort) pt. started SBA and last roll as fatigued to min A -IG Scooting/Bridging Preston (Bed Mobility) standby assist -IG Supine-Sit Preston (Bed Mobility) standby assist -IG Sit-Supine Preston (Bed Mobility) standby assist -IG Assistive Device (Bed Mobility) bed rails;head of bed elevated -IG Comment, (Bed Mobility) Patient utilizies bed functions such as trendelenburg to scoot toward HOB. uses railing for rolling. -IG Row Name 07/13/25 1449 Bed-Chair Transfer Bed-Chair Preston (Transfers) moderate assist (50% patient effort);dependent (less [...] Anne, MARY Physical Therapist Obj/Interventions Row Name 07/13/25 1453 [...] No documentation. Clinical Impression Row Name 07/13/25 1454 Pain Pretreatment Pain Rating 8/10 -IG Posttreatment Pain Rating /10 -IG Pain Location buttock -IG Pain Side/Orientation [...] Provider Type Hayden Anne, MARY Physical Therapist Outcome Measures Row Name 07/13/25 [...] Therapist Physical Therapy Education Title: PT OT ELASTIC YARN TWISTER HELPER Therapies (Done) Topic: Physical Therapy (Done) Point: [...] Due Date -- 07/20/25 -MF Timed Charges 86600 - PT Therapeutic Activity Minutes 42 -IG -- Untimed Charges 64076-Iaax Boot -- 10 -MF 70150-Gil Pressure wound to 50 sqcm -- 25 -MF Total Minutes Timed Charges Total Minutes 42 -IG -- Untimed Charges Total Minutes -- 35 -MF Total Minutes 42 -IG 35 -MF User Llanes (r) = Recorded By, (t) = Taken By, (c) = Cosigned By Initials Name Provider Type Duglas Pathak, PT Physical Therapist IG Hayden Matias, PT Physical Therapist Therapy Charges for Today Code Description Service Date Service Provider Modifiers Qty [id number] PT THERAPEUTIC ACT EA 15 MIN 07/13/2025 [...] included. Acute Care - Wound/Debridement Treatment Note [place] Patient Name: Trung Pool : 1955 Today's Date: 07/13/2025 Admit Date: 06/25/2025 Visit Dx: ICD-10-CM ICD-9-CM 1. Cellulitis of left lower extremity L03.116 682.6 2. Hematuria, unspecified type R31.9 599.70 3. Urinary tract infection associated with indwelling urethral catheter, initial encounter T83.129O814.64 N39.0 599.0 4. Diarrhea, unspecified type R19.7 [...] of migraine headaches 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 Left leg cellulitis [...] with fusion C3-4; Surgeon: Tyree Tan MD; Location:[facility]; Service: Neurosurgery; Laterality: Bilateral; AORTOGRAM N/A 01/26/2024 Procedure: ABDOMINAL AORTIC ANGIOGRAM, LLE ANGIOGRAM, LEFT ANTERIOR TIBIAL ATHERECTOMY, LEFT ANTERIOR TIBIAL ANGIOPLASTY; Surgeon: Archie Olvera MD; Location: [facility]; Service: Vascular; Laterality: N/A; CONTRAST: 50 ML, FT: 2 MIN 54 SEC, DOSE: 66 MGY. AORTOGRAM Left 07/03/2025 Procedure: ARTERIOGRAM LOWER EXTREMITY; Surgeon: Vaughn Hollingsworth DO; Location: [facility]; Service: Vascular; Laterality: Left; FT-6MINS 24SEC 140 MGY CONTRAST -15ML BACK SURGERY FOR DISC HERNIATION CARDIAC CATHETERIZATION CARDIAC CATHETERIZATION N/A 09/04/2024 Procedure: Peripheral angiography - Left lower extremity angio - Right femoral access; Surgeon: Jared Marcano MD; Location: [facility]; Service: Peripheral Vascular; Laterality: N/A; CORONARY ANGIOPLASTY WITH STENT PLACEMENT stent x 1 INCISION AND DRAINAGE FOOT Left 06/17/2023 Procedure: LEFT FOOT DEBRIDEMENT WOUND VACUUM ASSISTED CLOSURE; Surgeon: Cecil Buenrostro Jr., MD;Location: [facility]; Service: Orthopedics; Laterality: Left; INCISION AND DRAINAGE LEG Left 07/25/2023 Procedure: INCISION AND DRAINAGE HEEL, WOUND VAC; Surgeon: Cecil Buenrostro Jr., MD; Location: [facility]; Service: Orthopedics; Laterality: Left; INCISION AND DRAINAGE LEG Left 07/03/2025 Procedure: DEBRIDEMENT WOUND, PLACEMENT OF WOUND VAC; Surgeon: Vaughn Hollingsworth DO; Location: [facility]; Service: Vascular; Laterality: Left; INTERVENTIONAL RADIOLOGY PROCEDURE N/A 05/02/2019 Procedure: IVC FILTER PLACEMENT; Surgeon: Pedro Zapien MD; Location: [facility]; Service: Interventional Radiology INTERVENTIONAL RADIOLOGY PROCEDURE Left 09/07/2024 Procedure: LEFT peroneal arteriovenous fistula embolization - Right femoral access; Surgeon: Jared Marcano MD; Location: [facility]; Service: Cardiovascular; Laterality: Left; Please coordinate with Gautam Patel ([facility]) [phone] who will bring coils LUMBAR DISCECTOMY N/A 05/03/2019 Procedure: THORACIC LAMINECTOMY T11-12; Surgeon: Tyree Tan MD; Location: [facility]; Service: Neurosurgery Wound 01/15/24 194 Left lower [...] FACES Pre/Post-Treatment (Group) - Row Name 07/13/25 103 Pain Scale: FACES Pre/Post-Treatment Pain: FACES Scale, Pretreatment 4-->hurts little more - Posttreatment Pain Rating 4-->hurts little more - Row Name Wound 06/26/25 0150 Left medial coccyx Pressure Injury Wound - Properties Group Placement Date: 06/26/25 Placement Time: 015 - Present on Original Admission: Y -EW [...] Date first assessed: 06/26/25 Time first assessed: 0 - Present on [...] assessed: 01/28/24 -MJ Present on Original Admission: N -MJ Side: Left -MJ Location: second toe -MJ Primary Wound Type: Incision -MJ Row Name Wound 05/04/24 1941 Left lower leg Other (comment) Wound - [...] Right -RS Location: groin -RS Row Name 07/13/251029 NPWT (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 Wound Therapy) 07/03/25 LEFT FOOT NPWT (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 Wound Therapy) - Properties Group Placement Date: 07/03/25 -RS Location: LEFT FOOT -RS Additional Comments: PER MD DARRICK REYNOSO Therapy Setting continuous therapy -MF Dressing foam, black -MF Contact Layer other (see comments) sheree Ag -MF Pressure Setting 125 mmHg -MF Sponges Inserted 1 -MF Sponges Removed 1 -MF Finger sweep complete Yes -MF 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) - Properties Group Placement Date: 07/03/25 -RS Location: LEFT FOOT -RS Additional Comments: PER MD DARRICK REYNOSO 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) - Properties Group Placement Date: 07/03/25 -RS Location: LEFT FOOT -RS Additional Comments: PER MD DARRICK REYNOSO 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) - Properties Group Placement Date: 07/03/25 -RS Location: LEFT FOOT -RS Additional Comments: PER MD DARRICK REYNOSO Row Name 07/13/251029 Coping Observed Emotional State calm;cooperative - Verbalized [...] change every 2-3 days. - Row Name 07/13/251029 Positioning and Restraints Pre-Treatment Position in bed [...] Nurse Physical Therapy Education Title: PT OT ELASTIC YARN TWISTER HELPER Therapies (In Progress) Topic: Physical Therapy (Done) [...] Re-Cert Due Date 07/20/25 -MF Untimed Charges 57760-Adka Boot 10 -MF 76173-Fst Pressure wound to 50 sqcm 25 -MF Total Minutes Untimed Charges Total Minutes 35 -MF Total Minutes 35 -MF User Llanes (r) = Recorded By, (t) = Taken By, (c) = Cosigned By Initials Name Provider Type Duglas Pathak, PT Physical Therapist Therapy Charges for Today Code Description Service Date Service Provider Modifiers Qty [id number] HC PT NEG PRESS WOUND TO 50SQCM DME1 07/12/2025 Duglas Mayes, PT 1 PT G-Codes Outcome Measure Options: AM-PAC 6 Clicks Daily Activity (OT) AM-PAC 6 Clicks Score (PT): 10 AM-PAC 6 Clicks Score (OT): 14 Duglas Mayes PT 07/13/2025 * Case Management/Social Work - Tommie, Monalisa Vital RN - 07/13/2025 10:17 AM EDT Continued [...] bed. I received a phone call from [facility]. Unfortunately [facility] is not in network with Mr Pool's insurance. I stopped and spoke with Mr Pool at bedside. I have provided Mr Pool with a patient choice list of both facilities that are within 20 [address] of his address and facilities that are within 20 miles of this hospital's address. I have left notes by specific facilities ( [facility] -no [facility] beds; [facility] - not in network with his insurance; [facility] - patient has to be a in order to go to this facility). Mr Pool states that he will look over the lists. Case management will continue to follow. Final Discharge Disposition Code 03 - senior living facility (SNF) Discharge Codes No documentation. Expected Discharge Date and Time Expected Discharge Date Expected Discharge Time Jul 13, 2025 Monalisa Reilly RN * Case Management/Social Work - Monalisa Reilly RN - 07/11/2025 2:16 PM EDT Continued Stay Note [facility] Patient Name: Trung Pool Today's Date: [...] Pool is nowagreeable to referrals to both [facility] and [facility] in [place]. I have called and made referrals to [facility] and [facility]. Case management will continue to follow. Final Discharge Disposition Code 03 - senior living facility (SNF) Discharge Codes No documentation. Expected Discharge Date and Time Expected Discharge Date Expected Discharge Time Jul 13, 2025 Monalisa Reilly RN * Therapy Wound Care Treatment - Duglas Mayes, PT - 07/11/2025 11:29 AM EDT Images from the original note were not included. Acute Care - Wound/Debridement Treatment Note [facility] Patient Name: Trung Pool : 1955 Today's Date: 07/11/2025 Admit Date: 06/25/2025 Visit Dx: ICD-10-CM ICD-9-CM 1. Cellulitis of left lower extremity L03.116 682.6 2. Hematuria, unspecified type R31.9 599.70 3. Urinary tract infection associated with indwelling urethral catheter, initial encounter T83.940Q042.64 N39.0 599.0 4. Diarrhea, unspecified type R19.7 [...] of migraine headaches 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 Left leg cellulitis [...] LEFT; Surgeon: Cecil Buenrostro Jr., MD; Location: [facility]; Service: Orthopedics; Laterality: Left; ANTERIOR CERVICAL DISCECTOMY W/ FUSION Bilateral 07/17/2020 Procedure: Cervical discectomy anterior with fusion C3-4; Surgeon: Tyree Tan MD; Location: [facility]; Service: Neurosurgery; Laterality: Bilateral; AORTOGRAM N/A 01/26/2024 Procedure: ABDOMINAL AORTIC ANGIOGRAM, LLE ANGIOGRAM, LEFT ANTERIOR TIBIAL ATHERECTOMY, LEFT ANTERIOR TIBIAL ANGIOPLASTY; Surgeon: Archie Olvera MD; Location: [facility]; Service: Vascular; Laterality: N/A; CONTRAST: 50 ML, FT: 2 MIN 54 SEC, DOSE: 66 MGY. AORTOGRAM Left 07/03/2025 Procedure: ARTERIOGRAM LOWER EXTREMITY; Surgeon: Vaughn Hollingsworth DO; Location: [facility]; Service: Vascular; Laterality: Left; FT-6MINS 24SEC 140 MGY CONTRAST -15ML BACK SURGERY FOR DISC HERNIATION CARDIAC CATHETERIZATION CARDIAC CATHETERIZATION N/A 09/04/2024 Procedure: Peripheral angiography - Left lower extremity angio - Right femoral access; Surgeon: Jared Marcano MD; Location: [facility]; Service: Peripheral Vascular; Laterality: N/A; CORONARY ANGIOPLASTY WITH STENT PLACEMENT stent x 1 INCISION AND DRAINAGE FOOT Left 06/17/2023 Procedure: LEFT FOOT DEBRIDEMENT WOUND VACUUM ASSISTED CLOSURE; Surgeon: Cecil Buenrostro Jr., MD;Location: [facility]; Service: Orthopedics; Laterality: Left; INCISION AND [...] Laterality: Left; Please coordinate with Gautam Patel ([facility]) [phone] who will bring coils LUMBAR DISCECTOMY N/A 05/03/2019 Procedure: THORACIC LAMINECTOMY T11-12; Surgeon: Tyree Tan MD; Location: [facility]; Service: Neurosurgery Wound 01/15/24 1941 Left [...] 07/11/25 0820 Periwound Care barrier ointment applied 07/10/252244 Wound 06/26/25 0150 Left posterior greater trochanter [...] PT Evaluation and Treatment Row Name 07/11/25 1117 Physical Therapy Time and Intention Subjective Information complains of;weakness;fatigue;pain -MF Document Type therapy note (daily note);wound care - Mode of Treatment individual therapy;physical therapy - Row Name 07/11/25 111 Pain Pain Location extremity -MF Pain Side/Orientation left -MF Row Name 07/11/25 111 Pain Scale: FACES Pre/Post-Treatment Pain: FACES Scale, [...] Right -RS Location: groin -RS Row Name 07/11/251114 NPWT (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 Wound Therapy) 07/03/25 LEFT FOOT NPWT (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 Wound Therapy) - Properties Group Placement Date: 07/03/25 -RS Location: LEFT FOOT -RS Additional Comments: PER MD DARRICK REYNOSO Therapy Setting continuous therapy - Pressure Setting 125 mmHg - 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) - Properties Group Placement Date: 07/03/25 -RS Location: LEFT FOOT -RS Additional Comments: PER MD DARRICK REYNOSO 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) - Properties Group Placement Date: 07/03/25 -RS Location: LEFT FOOT -RS Additional Comments: PER MD DARRICK REYNOSO 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) - Properties Group Placement Date: 07/03/25 -RS Location: LEFT FOOT -RS Additional Comments: PER MD DARRICK REYNOSO Row Name 07/11/25 1115 Coping Observed Emotional State calm;cooperative - Verbalized Emotional State acceptance - Trust Relationship/Rapport care explained - Row Name 07/11/25 111 Plan of Care Review Plan of Care [...] Type MF Duglas Mayes, PT Physical Therapist Margarita Olvera, RN Registered Nurse EW Eddie, Kristan A, RN Registered Nurse Henrietta Blakely RN Registered Nurse Mary Mayes, RN Registered Nurse Alessandra Whitaker, RN Registered Nurse Physical Therapy Education Title: PT OT ELASTIC YARN TWISTER HELPER Therapies (In Progress) Topic: Physical Therapy (Done) [...] Re-Cert Due Date 07/20/25 -MF Untimed Charges 29967-Zvm Pressure wound to 50 sqcm 10 -MF Total Minutes Untimed Charges Total Minutes 10 -MF Total Minutes 10 -MF User Llanes (r) = Recorded By, (t) = Taken By, (c) = Cosigned By Initials Name Provider Type Duglas Mayes, PT Physical Therapist Therapy Charges for Today Code Description Service Date Service Provider Modifiers Qty 93991231311 HC PT STAPPING UNNA BOOT 07/10/2025 Duglas Mayes, PT GP, LT 1 38269597175 HC PT NEG PRESS WOUND TO 50SQCM DME2 07/10/2025 Duglas Mayes, PT GP 1 86518040346 HC SILVANA DEBRIDE OPEN WOUND UP TO 20CM 07/10/2025 Duglas Mayes, PT GP 1 PT G-Codes Outcome Measure Options: AM-PAC 6 Clicks Daily Activity (OT) AM-PAC 6 Clicks Score (PT): 10 AM-PAC 6 Clicks Score (OT): 14 Duglas Mayes PT 07/11/2025 * Therapy Wound Care Treatment - Duglas Mayes PT - 07/10/2025 4:12 PM EDT Images from the original note were not included. Acute Care - Wound/Debridement Treatment Note [facility] Patient Name: Trung Pool : 1955 Today's Date: 07/10/2025 Admit Date: 06/25/2025 Visit Dx: ICD-10-CM ICD-9-CM 1. Cellulitis of left lower extremity L03.116 682.6 2. Hematuria, unspecified type R31.9 599.70 3. Urinary tract infection associated with indwelling urethral catheter, initial encounter T83.328P032.64 N39.0 599.0 4. Diarrhea, unspecified type R19.7 [...] of migraine headaches 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 Left leg cellulitis [...] TIBIAL ANGIOPLASTY; Surgeon: Archie Olvera MD; Location: [facility]; Service: Vascular; Laterality: N/A; CONTRAST: 50 ML, FT: 2 MIN 54 SEC, DOSE: 66 MGY. AORTOGRAM Left 07/03/2025 Procedure: ARTERIOGRAM LOWER EXTREMITY; Surgeon: Vaughn Hollingsworth DO; Location: [facility]; Service: Vascular; Laterality: Left; FT-6MINS 24SEC 140 MGY CONTRAST -15ML BACK SURGERY FOR DISC HERNIATION CARDIAC CATHETERIZATION CARDIAC CATHETERIZATION N/A 09/04/2024 Procedure: Peripheral angiography - Left lower extremity angio - Right femoral access; Surgeon: Jared Marcano MD; Location: [facility]; Service: Peripheral Vascular; Laterality: N/A; CORONARY ANGIOPLASTY WITH STENT PLACEMENT stent x 1 INCISION AND DRAINAGE FOOT Left 06/17/2023 Procedure: LEFT FOOT DEBRIDEMENT WOUND VACUUM ASSISTED CLOSURE; Surgeon: Cecil Buenrostro Jr., MD;Location: [facility]; Service: Orthopedics; Laterality: Left; INCISION AND DRAINAGE LEG Left 07/25/2023 Procedure: INCISION AND DRAINAGE HEEL, WOUND VAC; Surgeon: Cecil Buenrostro Jr., MD; Location: [facility]; Service: Orthopedics; Laterality: Left; INCISION AND DRAINAGE LEG Left 07/03/2025 Procedure: DEBRIDEMENT WOUND, PLACEMENT OF WOUND VAC; Surgeon: Vaughn Hollingsworth DO; Location: [facility]; Service: Vascular; Laterality: Left; INTERVENTIONAL RADIOLOGY PROCEDURE N/A 05/02/2019 Procedure: IVC FILTER PLACEMENT; Surgeon: Pedro Zapien MD; Location: [facility]; Service: Interventional Radiology INTERVENTIONAL RADIOLOGY PROCEDURE Left 09/07/2024 Procedure: LEFT peroneal arteriovenous fistula embolization - Right femoral access; Surgeon: Jared Marcano MD; Location: [facility]; Service: Cardiovascular; Laterality: Left; Please coordinate with Gautam Patel ([facility]) [phone] who will bring coils LUMBAR DISCECTOMY N/A 05/03/2019 Procedure: THORACIC LAMINECTOMY T11-12; Surgeon: Tyree Tan MD; Location: [facility]; Service: Neurosurgery Wound 01/28/24 Left anterior [...] 1850 Dressing Care open to air 07/09/25 185 Periwound Care barrier ointment applied;dry periwound area maintained 07/09/25 1850 Wound 06/26/25 0150 Left posterior greater trochanter Pressure Injury (Active) Dressing Appearance open to air 07/09/25 1850 Base red;moist 07/10/25 1400 Care, Wound cleansed with;soap and water 07/09/25 185 Dressing Care open to air 07/09/25 185 Periwound Care barrier ointment applied;dry periwound area maintained 07/09/25 1850 Wound 06/26/25 0150 Right posterior greater trochanter Pressure Injury (Active) Dressing Appearance open to air 07/09/25 185 Base moist;red 07/10/25 1400 Care, Wound cleansed with;soap and water 07/09/25 185 Dressing Care open to air 07/09/25 185 Periwound Care barrier ointment applied;dry periwound area [...] PT Evaluation and Treatment Row Name 07/10/25 3850 Physical Therapy Time and Intention Subjective Information complains of;weakness;fatigue;pain - Document Type therapy note (daily note);wound care - Mode of Treatment individual therapy;physical therapy - Row Name 07/10/25 6145 Pain Pain Location extremity - Pain Side/Orientation left;lower - Row Name 07/10/251329 Pain Scale: FACES Pre/Post-Treatment Pain: FACES Scale, Pretreatment 6-->hurts even more - Posttreatment Pain Rating 6-->hurts even more - Row Name Wound 06/26/25 0150 Left medial coccyx Pressure Injury Wound - Properties Group Placement Date: 06/26/25 Placement Time: 015 - Present on Original Admission: Y -EW [...] maintained;cleansed with pH balanced cleanser;barrier film applied - Retired Wound - Properties Group Placement [...] LEFT FOOT -RS Additional Comments: PER MD DARRICK REYNOSO Therapy Setting continuous therapy -MF Dressing foam, black -MF Pressure Setting 125 mmHg -MF Sponges Inserted 1 -MF Sponges Removed 1 -MF Finger sweep complete Yes -MF 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) - Properties Group Placement Date: 07/03/25 -RS Location: LEFT FOOT -RS Additional Comments: PER MD DARRICK REYNOSO 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) - Properties Group Placement Date: 07/03/25 -RS Location: LEFT FOOT -RS Additional Comments: PER MD DARRICK REYNOSO 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) - Properties Group Placement Date: 07/03/25 -RS Location: LEFT FOOT -RS Additional Comments: PER MD DARRICK REYNOSO Row Name 07/10/251329 Coping Observed Emotional State calm;cooperative - Verbalized Emotional State acceptance - Trust Relationship/Rapport care explained -MF Row Name 07/10/251329 Plan of Care Review Plan of Care Reviewed With patient -MF Outcome Evaluation wound vac dressing changed and PT applied unna boot in clamshell to LE with no compression to help decrease inflammation and improve skin integrity. -MF Row Name 07/10/251329 Positioning and Restraints Pre-Treatment Position in bed -MF Post Treatment Position bed -MF In Bed supine;call light within reach -MF User Llanes (r) = Recorded By, (t) = Taken By, (c) = Cosigned By Initials Name Provider Type MF Duglas Mayes, PT Physical Therapist Margarita Olvera, RN Registered Nurse Kristan Giordano RN Registered Nurse Henrietta Blakely RN Registered Nurse Mary Mayes RN Registered Nurse Alessandra Whitaker RN Registered Nurse Physical Therapy Education Title: PT OT ELASTIC YARN TWISTER HELPER Therapies (In Progress) Topic: Physical Therapy (Done) [...] Date 07/20/25 -IG 07/20/25 -MF Timed Charges 22266 - PT Therapeutic Activity Minutes 70 -IG -- Untimed Charges Wound Care -- 12606 Selective debridement;07511 Unna boot -MF 16937-Zkoz Boot -- 10 -MF 43573-Rqfcflaqz debridement -- 15 -MF 09958-Xuj Pressure wound to 50 sqcm -- 25 [...] Description Service Date Service Provider Modifiers Qty [id number] HC PT NEG PRESS WOUND TO 50SQCM [...] associated with indwelling urethral catheter, initial encounter T83.609Z835.64 N39.0 599.0 4. Diarrhea, unspecified type R19.7 [...] of migraine headaches 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 Left leg cellulitis [...] Cecil Buenrostro Jr., MD; Location: [facility]; Service: Orthopedics; Laterality: Left; ANTERIOR CERVICAL DISCECTOMY W/ FUSION Bilateral 07/17/2020 Procedure: Cervical discectomy anterior with fusion C3-4; Surgeon: Tyree Tan MD; Location:[facility]; Service: Neurosurgery; Laterality: Bilateral; AORTOGRAM N/A 01/26/2024 Procedure: ABDOMINAL AORTIC ANGIOGRAM, LLE ANGIOGRAM, LEFT ANTERIOR TIBIAL ATHERECTOMY, LEFT ANTERIOR TIBIAL ANGIOPLASTY; Surgeon: Archie Olvera MD; Location: [facility]; Service: Vascular; Laterality: N/A; CONTRAST: 50 ML, FT: 2 MIN 54 SEC, DOSE: 66 MGY. AORTOGRAM Left 07/03/2025 Procedure: ARTERIOGRAM LOWER EXTREMITY; Surgeon: Vaughn Hollingsworth DO; Location: [facility]; Service: Vascular; Laterality: Left; FT-6MINS 24SEC 140 MGY CONTRAST -15ML BACK SURGERY FOR DISC HERNIATION CARDIAC CATHETERIZATION CARDIAC CATHETERIZATION N/A 09/04/2024 Procedure: Peripheral angiography - Left lower extremity angio - Right femoral access; Surgeon: Jared Marcano MD; Location: [facility]; Service: Peripheral Vascular; Laterality: N/A; CORONARY ANGIOPLASTY WITH STENT PLACEMENT stent x 1 INCISION AND DRAINAGE FOOT Left 06/17/2023 Procedure: LEFT FOOT DEBRIDEMENT WOUND VACUUM ASSISTED CLOSURE; Surgeon: Cecil Buenrostro Jr., MD;Location: [facility]; Service: Orthopedics; Laterality: Left; INCISION AND DRAINAGE LEG Left 07/25/2023 Procedure: INCISION AND DRAINAGE HEEL, WOUND VAC; Surgeon: Cecil Buenrostro Jr., MD; Location: [facility]; Service: Orthopedics; Laterality: Left; INCISION AND DRAINAGE LEG Left 07/03/2025 Procedure: DEBRIDEMENT WOUND, PLACEMENT OF WOUND VAC; Surgeon: Vaughn Hollingsworth DO; Location: [facility]; Service: Vascular; Laterality: Left; INTERVENTIONAL RADIOLOGY PROCEDURE N/A 05/02/2019 Procedure: IVC FILTER PLACEMENT; Surgeon: Pedro Zapien MD; Location: [facility]; Service: Interventional Radiology INTERVENTIONAL RADIOLOGY PROCEDURE Left 09/07/2024 Procedure: LEFT peroneal arteriovenous fistula embolization - Right femoral access; Surgeon: Jared Marcano MD; Location: [facility]; Service: Cardiovascular; Laterality: Left; Please coordinate with Gautam Patel ([facility]) [phone] who will bring coils LUMBAR DISCECTOMY N/A 05/03/2019 Procedure: THORACIC LAMINECTOMY T11-12; Surgeon: Tyree Tan MD; Location: [facility]; Service: Neurosurgery General Information Row Name 07/10/25 [...] complex;previous functional deficit;physical barrier -CHRISTA Row Name 07/10/25 1607 Occupational Profile Environmental Supports and Barriers (Occupational Profile) Pt has mia lift at home -CHRISTA Row Name 07/10/25 1607 Cognition Orientation Status (Cognition) oriented x 3 -CHRISTA Row Name 07/10/25 1607 Safety Issues/Impairments Affecting Functional Mobility Safety Issues Affecting Function (Mobility) sequencing abilities;safety precaution awareness -CHRISTA Impairments Affecting Function (Mobility) balance;coordination;endurance/activity tolerance;pain;range of motion (ROM);sensation/sensory awareness;strength -CHRISTA User Llanes (r) = Recorded By, (t) = Taken By, (c) = Cosigned By Initials Name Provider Type Juani Wagoner, OT Occupational Therapist Lymphedema Row Name 07/10/25 2529 Lymphedema Edema Assessment Ptting Edema Category By severity - Pitting Edema Moderate -MF Recorded by [MF] Duglas Mayes, PT Skin Changes/Observations Location/Assessment Lower Extremity - Lower [...] spandage to secur. -MF Recorded by [MF] Duglas Mayes, PT User Llanes (r) = Recorded By, (t) = Taken By, (c) = Cosigned By Initials Name Effective Dates MF Sugey Duglas R, PT 10/16/22 - Mobility/ADL's Row Name 07/10/25 1609 Bed Mobility Bed Mobility supine-sit;sit-supine -CHRISTA Supine-Sit Preston (Bed Mobility) supervision -CHRISTA Sit-Supine Preston (Bed Mobility) supervision -CHRISTA Bed Mobility, Safety Issues decreased use of legs for bridging/pushing -CHRISTA Assistive Device (Bed Mobility) bed rails;head of bed elevated -CHRISTA Row Name 07/10/25 1609 Transfers Comment, (Transfers) Declined transfer to chair -CHRISTA Row Name 07/10/25 1609 Sit-Stand Transfer Sit-Stand Preston (Transfers) unable to assess -CHRISTA Row Name 07/10/25 1609 Functional Mobility Functional Mobility- Ind. Level unable to perform -CHRISTA Row Name 07/10/25 1609 Activities of Daily Living BADL Assessment/Intervention grooming -CHRISTA Row Name 07/10/25 1609 Hygiene Care Oral Care patient refused intervention -CHRISTA Row Name 07/10/25 1609 Grooming Assessment/Training Preston Level (Grooming) wash face, hands;set up -CHRISTA [...] Cosigned By Initials Name Provider Type Juani Waogner OT Occupational Therapist Goals/Plan No documentation. Clinical Impression Row Name 07/10/25 1614 Pain Assessment Pretreatment Pain Rating 8/10 -CHRISTA Posttreatment Pain Rating /10 -CHRISTA Pain Location extremity -CHRISTA Pain Side/Orientation [...] past therapy experience, his current challenges with Travis ALFARO, and being a burden to family and friends. Concerns a ddressed and pt reassured that OT is available if needed to continue conversation. Continue to progress self-care and functional mobility per OT POC. -CHRISTA Row Name 07/10/25 1614 Therapy Plan Review/Discharge Plan (OT) Anticipated Discharge Disposition (OT) senior living facility -CHRISTA Row Name 07/10/25 1614 Vital [...] By Initials Name Provider Type Juani Wagoner, SOCO Occupational Therapist Outcome Measures Row Name 07/10/25 [...] Therapist Occupational Therapy Education Title: PT OT ELASTIC YARN TWISTER HELPER Therapies (In Progress) Topic: Occupational Therapy (In Progress) Point: ADL training (Done) Learning Progress Summary Patient Acceptance, E, VU,NR by CHRISTA at 07/10/2025 3267 Comment: OT POC; half-way goals; rehab potential; discharge planning User Llanes Initials Effective Dates Name Provider Type Discipline CHRISTA 02/26/21 - Juani Clark OT Occupational Therapist [...] OT Received On 07/10/25 -CHRISTA Timed Charges 66654 - OT Self Care/Mgmt Minutes 25 -CHRISTA Total Minutes Timed Charges Total Minutes 25 -CHRISTA Total Minutes 25 -CHRISTA User Llanes (r) = Recorded By, (t) = Taken By, (c) = Cosigned By Initials Name Provider Type Juani Wagoner OT Occupational Therapist Therapy Charges for Today Code Description Service Date Service Provider Modifiers Qty [id number] HC OT SELF CARE/MGMT/TRAIN EA 15 MIN [...] associated with indwelling urethral catheter, initial encounter T83.190J264.64 N39.0 599.0 4. Diarrhea, unspecified type R19.7 [...] of migraine headaches 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 Left leg cellulitis [...] fusion C3-4; Surgeon: Tyree Tan MD; Location: [facility]; Service: Neurosurgery; Laterality: Bilateral; AORTOGRAM N/A 01/26/2024 Procedure: ABDOMINAL AORTIC ANGIOGRAM, LLE ANGIOGRAM, LEFT ANTERIOR TIBIAL ATHERECTOMY, LEFT ANTERIOR TIBIAL ANGIOPLASTY; Surgeon: Archie Olvera MD; Location: [facility]; Service: Vascular; Laterality: N/A; CONTRAST: 50 ML, FT: 2 MIN 54 SEC, DOSE: 66 MGY. AORTOGRAM Left 07/03/2025 Procedure: ARTERIOGRAM LOWER EXTREMITY; Surgeon: Vaughn Hollingsworth DO; Location: [facility]; Service: Vascular; Laterality: Left; FT-6MINS [...] VAC; Surgeon: Cecil Buenrostro Jr., MD; Location: [facility]; Service: Orthopedics; Laterality: Left; INCISION AND DRAINAGE LEG Left 07/03/2025 Procedure: DEBRIDEMENT WOUND, PLACEMENT OF WOUND VAC; Surgeon: Vaughn Hollingsworth DO; Location: [facility]; Service: Vascular; Laterality: Left; INTERVENTIONAL RADIOLOGY PROCEDURE N/A 05/02/2019 Procedure: IVC FILTER PLACEMENT; Surgeon: Pedro Zapien MD; Location: [facility]; Service: Interventional Radiology INTERVENTIONAL RADIOLOGY PROCEDURE Left 09/07/2024 Procedure: LEFT peroneal arteriovenous fistula embolization - Right femoral access; Surgeon: Jared Marcano MD; Location: [facility]; Service: Cardiovascular; Laterality: Left; Please coordinate with Gautam Patel ([facility]) [phone] who will bring coils LUMBAR DISCECTOMY N/A 05/03/2019 Procedure: THORACIC LAMINECTOMY T11-12; Surgeon: Tyree Tan MD; Location: [facility]; Service: Neurosurgery General Information Row Name 07/10/25 151 Physical Therapy Time and Intention Document Type progress note/recertification -IG Mode of Treatment physical therapy first session individual treatment, second session patient was seen with OT -IG Row Name 07/10/25 151 General Information Patient Profile Reviewed yes -IG Existing Precautions/Restrictions fall;other (see comments) 07/03 transmetatarsal debridement and angiogram LLE with wound vac -IG Barriers to Rehab medically complex;previous functional deficit -IG Row Name 07/10/25 151 Cognition Orientation Status (Cognition) oriented x 3 -IG Row Name 07/10/25 1512 Safety Issues/Impairments Affecting Functional Mobility Safety Issues [...] Name 07/10/25 151 Bed Mobility Bed Mobility scooting/bridging;rcqnsq-rwa-zplhyx -IG Scooting/Bridging Preston (Bed Mobility) standby assist -IG Xelqku-Lwo-Mbcxas Preston (Bed Mobility) standby assist -IG Assistive Device (Bed Mobility) bed rails -IG Comment, (Bed Mobility) utilized trendelenburg and bed rails for scooting toward HOB -IG Row Name 07/10/25 1516 Transfers Comment, (Transfers) While sitting EOB, Patient was able to scoot L and R approximately 1-2 ft to demonstrate his transfer abilities w/o LLE on floor. -IG User Llanes (r) = Recorded By, (t) = Taken By, (c) = Cosigned By Initials Name Provider Type Hayden Anne PT Physical Therapist Obj/Interventions Row Name 07/10/25 1519 Range of Motion Comprehensive General Range of Motion bilateral lower extremity ROM WFL -IG Row Name 07/10/25 1519 Strength Comprehensive (MMT) Comment, General Manual Muscle Testing (MMT) Assessment not tested -IG Row Name 07/10/25 1519 Motor Skills Motor Skills functional endurance -IG [...] Cosigned By Initials Name Provider Type Hayden Anne PT Physical Therapist Goals/Plan Row Name 07/10/25 153 Bed Mobility Goal 1 (PT) Activity/Assistive Device (Bed Mobility Goal 1, PT) supine to sit;rolling to left;rolling to right -IG Preston Level/Cues Needed (Bed Mobility Goal 1, PT) independent -IG Time Frame (Bed Mobility Goal 1, PT) short term goal (STG);5 days -IG Progress/Outcomes (Bed Mobility Goal 1, PT) goal ongoing -IG Row Name 07/10/251529 Transfer Goal 1 (PT) Activity/Assistive Device (Transfer Goal 1, PT) wsl-hg-wkwxw/mzcdu-sq-gwd -IG Preston Level/Cues Needed (Transfer Goal 1, PT) independent -IG Time Frame (Transfer Goal 1, PT) senior care goal (LTG);10 days -IG Strategies/Barriers (Transfers Goal 1, PT) w/ slide board or w/o -IG Progress/Outcome (Transfer Goal 1, PT) new goal -IG Row Name 07/10/25 153 Balance Goal 1 (PT) Activity/Assistive Device (Balance Goal) sitting dynamic balance -IG Preston Level/Cues Needed (Balance Goal 1, PT) supervision [...] Name 07/10/25 1520 Pain Pretreatment Pain Rating 8 -IG Posttreatment Pain Rating 04/22 -IG Pain Location extremity -IG Pain Side/Orientation lower;left -IG Pain Management Interventions exercise or physical activity utilized -IG Response to Pain Interventions activity participation with tolerable pain -IG Row Name 07/10/25 152 Plan of Care Review Plan of Care [...] from skilled IPPT. -IG Row Name 07/10/25 1520 Therapy Assessment/Plan (PT) Patient/Family Therapy Goals Statement [...] Cosigned By Initials Name Provider Type Hayden Anne PT Physical Therapist Physical Therapy Education Title: PT OT ELASTIC YARN TWISTER HELPER Therapies (In Progress) Topic: Physical Therapy (Done) [...] Re-Cert Due Date 07/20/25 -IG Timed Charges 50231 - PT Therapeutic Activity Minutes 70 -IG Total Minutes Timed Charges Total Minutes 70 -IG Total Minutes 70 -IG User Llanes (r) = Recorded By, (t) = Taken By, (c) = Cosigned By Initials Name Provider Type IG Hayden Matias PT Physical Therapist Therapy Charges for Today Code Description Service Date Service Provider Modifiers Qty [id number] HC PT THERAPEUTIC ACT EA 15 MIN 07/10/2025 [...] 07/09/2025 4:13 PM EDT Continued Stay Note [place] Patient Name: Trung Pool Today's Date: 07/09/2025 Admit Date: 06/25/2025 Plan: To be determined Discharge Plan Row Name 07/09/25 1603 Plan Plan To be determined Plan Comments Discussed Mr Pool in MDR. Unfortunately Mr Pool is at the point where he is requiringan amputation of his leg, and he will need exterminator antibiotics for this. Mr Pool continues to [...] included. Acute Care - Wound/Debridement Treatment Note [facility] Patient Name: Trung Pool : 1955 Today's Date: 07/06/2025 Admit Date: 06/25/2025 Visit Dx: ICD-10-CM ICD-9-CM 1. Cellulitis of left lower extremity L03.116 682.6 2. Hematuria, unspecified type R31.9 599.70 3. Urinary tract infection associated with indwelling urethral catheter, initial encounter T83.272R433.64 N39.0 599.0 4. Diarrhea, unspecified type R19.7 [...] of migraine headaches 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 Left leg cellulitis [...] LOWER EXTREMITY; Surgeon: Vaughn Hollingsworth DO; Location: [facility]; Service: Vascular; Laterality: Left; FT-6MINS [...] ASSISTED CLOSURE; Surgeon: Cecil Buenrostro Jr., MD;Location: [facility]; Service: Orthopedics; Laterality: Left; INCISION AND DRAINAGE LEG Left 07/25/2023 Procedure: INCISION AND DRAINAGE HEEL, WOUND VAC; Surgeon: Cecil Buenrostro Jr., MD; Location: [facility]; Service: Orthopedics; Laterality: Left; INCISION AND DRAINAGE LEG Left 07/03/2025 Procedure: DEBRIDEMENT WOUND, PLACEMENT OF WOUND VAC; Surgeon: Vaughn Hollingsworth DO; Location: [facility]; Service: Vascular; Laterality: Left; INTERVENTIONAL RADIOLOGY PROCEDURE N/A 05/02/2019 Procedure: IVC FILTER PLACEMENT; Surgeon: Pedro Zapien MD; Location: [facility]; Service: Interventional Radiology INTERVENTIONAL RADIOLOGY PROCEDURE Left 09/07/2024 Procedure: LEFT peroneal arteriovenous fistula embolization - Right femoral access; Surgeon: Jared Marcano MD; Location: [facility]; Service: Cardiovascular; Laterality: Left; Please coordinate with Gautam Patel ([facility]) [phone] who will bring coils LUMBAR DISCECTOMY N/A 05/03/2019 Procedure: THORACIC LAMINECTOMY T11-12; Surgeon: Tyree Tan MD; Location: [facility]; Service: Neurosurgery Wound 01/28/24 Left anterior second toe Incision (Active) Dressing Appearance intact;moist drainage 07/06/25 08 Dressing Removed Type other (see comments) 07/06/25 0800 Confirmed Empty Wound Bed Yes, visual inspection of wound bed 07/06/25 08 Base moist;pink;red 10/24/25 0800 Periwound pink;redness 07/06/25799 Periwound Temperature warm 07/06/25799 [...] posterior heel (Active) Closure Open to air 07/05/25 183 Periwound redness 07/05/251829 Wound 06/26/25 0150 Left [...] Care barrier ointment applied 07/05/252243 Wound 06/26/25 015 Right posterior greater trochanter [...] LEFT FOOT (Active) Therapy Setting continuous therapy 07/06/25799 Dressing foam, black 07/06/25799 Pressure Setting 125 mmHg 07/06/25 08 Sponges Inserted 1 07/06/25799 Sponges Removed 1 07/06/25 08 Finger sweep complete Yes 07/06/25799 WOUND DEBRIDEMENT PT Assessment (Last 12 Hours) PT Evaluation and Treatment Row Name 07/06/25799 Physical Therapy Time and Intention Subjective Information complains of;weakness;fatigue;pain -MF Document Type therapy note (daily note);wound care -MF Mode of Treatment individual therapy;physical therapy -MF Row Name 07/06/25799 Pain Pain Side/Orientation generalized - Row Name 07/06/25799 Pain Scale: FACES Pre/Post-Treatment Pain: FACES Scale, Pretreatment 4-->hurts little more -MF Posttreatment Pain Rating 4-->hurts little more -MF Row Name Wound 06/26/25 015 Left medial coccyx Pressure Injury Wound - Properties Group Placement Date: 06/26/25 - Placement Time: 149 Present on Original Admission: Y -EW Side: Left -EW Orientation: medial -EW Location: coccyx -EW Primary Wound Type: Pressure Inj -EW Retired Wound - Properties Group Placement Date: 06/26/25 -EW Placement Time: 0150 -EW Present on Original [...] bed -MF Base moist;pink;red -MF Periwound pink;redness - Periwound [...] Wound irrigated with;wound cleanser;negative pressure wound therapy - Dressing Care dressing changed - Periwound Care cleansed with pH balanced cleanser;dry [...] Group Placement Date: 07/03/25 -RS Placement Time: 153RS Side: Right -RS Orientation: anterior -RS Location: groin -RS Primary Wound Type: Traumatic -RS Secondary Wound Type - Traumatic: Skin Tear -RS Retired Wound - Properties Group Placement Date: 07/03/25 -RS Placement Time: 1534RS Side: Right -RS Orientation: anterior -RS Location: groin -RS Retired Wound - Properties Group Placement Date: 07/03/25 -RS Placement Time: 153RS Side: Right -RS Orientation: anterior -RS Location: groin -RS Retired Wound - Properties Group Date first assessed: 07/03/25 -RS Time first assessed: 1534 -RS Side: Right -RS Location: groin -RS Row Name 07/06/25 08 NPWT (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 Wound Therapy) 07/03/25 LEFT FOOT NPWT (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 Wound Therapy) - Properties Group Placement Date: 07/03/25 -RS Location: LEFT FOOT -RS Additional Comments: PER MD DARRICK REYNOSO Therapy Setting continuous therapy -MF Dressing foam, black -MF Pressure Setting 125 mmHg -MF Sponges Inserted 1 -MF Sponges Removed 1 -MF Finger sweep complete Yes -MF 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) - Properties Group Placement Date: 07/03/25 -RS Location: LEFT FOOT -RS Additional Comments: PER MD DARRICK REYNOSO 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) - Properties Group Placement Date: 07/03/25 -RS Location: LEFT FOOT -RS Additional Comments: PER MD DARRICK REYNOSO 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) - Properties Group Placement Date: 07/03/25 -RS Location: LEFT FOOT -RS Additional Comments: PER MD DARRICK REYNOSO Row Name 07/06/25 0800 Coping Observed Emotional State calm;cooperative - Verbalized Emotional State acceptance - Trust Relationship/Rapport care explained - Row Name 07/06/25 08 Plan of Care Review Plan of Care Reviewed With patient -MF Outcome Evaluation wound vac dressing changed and PT noted beefy red wound bed with minimal depth. PT replaced wound vac, but pt may benefit from transition to basic advanced dressings upon d/c home.- Row Name 10/24/25 0800 Positioning and Restraints Pre-Treatment Position in [...] Nurse Physical Therapy Education Title: PT OT ELASTIC YARN TWISTER HELPER Therapies (In Progress) Topic: Physical Therapy (Done) [...] Patient Acceptance, E, VU by IG at 07/05/20254 Comment: PT POC Acceptance, E, VU,NR by at 06/29/2025 0907 Acceptance, E, VU,NR by NS at 06/26/2025 1618 User Llanes Initials Effective Dates Name Provider Type Discipline NS 02/26/21 - Mirela Hsu, PT Physical Therapist PT ML 01/02/21 - Leonie Thoams Physical Therapist PT IG 04/19/25 - Hayden Matias, PT Physical Therapist PT Recommendation and Plan Recommended discharge disposition is based on the functional assessment performed by PT/OT/Speech therapy (as applicable) and may not reflect the medical necessity determined by your provider or services covered by an individual patient's insurance plan or patient resource. Anticipated Discharge Disposition (PT): senior living facility Planned Therapy Interventions (PT): wound care, [...] Re-Cert Due Date 07/06/25 -MF Untimed Charges 73909-Lok Pressure wound to 50 sqcm 25 -MF Total Minutes Untimed Charges Total Minutes 25 -MF Total Minutes 25 -MF User Llanes (r) = Recorded By, (t) = Taken By, (c) = Cosigned By Initials Name Provider Type Duglas Pathak, PT Physical Therapist Therapy Charges for Today Code Description Service Date Service Provider Modifiers Qty [id number] HC PT NEG PRESS WOUND TO 50SQCM [...] 07/06/2025 Admit Date: 06/25/2025 Plan: Home with [facility] Discharge Plan Row Name 07/06/25 0907 Plan Plan Home with [facility] Patient/Family in Agreement with Plan yes Plan Comments Spoke with patient at bedside. Plan is home with [facility]. Patient will need [facility] transport. May not qualify for a wound vac. CM will continue to follow. Final Discharge Disposition Code 06 - home with home health care Discharge Codes No documentation. Expected Discharge Date and Time Expected Discharge Date Expected Discharge Time Jun 27, 2025 Kamran Rodriguez RN * Case Management/Social Work - Monalisa Reilly RN - 07/05/2025 12:43 PM EDT Continued Stay Note [place] Patient Name: Trung Pool Today's Date: 07/05/2025 Admit Date: 06/25/2025 Plan: [facility] Discharge Plan Row Name 07/05/25 1240 Plan Plan [facility] Patient/Family in Agreement with Plan yes Plan Comments Mr Pool is now alert and oriented. I spoke with him at bedside after his surgery. He has a wound vac and is on IV antibiotics. Mr Pool would like to return home with home health, and isnot interested in short term rehab at a senior living facility. I have called [facility], and they are able to accomodate wound vacs. When Mr Pool is medically ready for discharge, orders can be faxed to [facility] at [phone]. Case management will continue to follow. Final [...] associated with indwelling urethral catheter, initial encounter T83.727C585.64 N39.0 599.0 4. Diarrhea, unspecified type R19.7 [...] of migraine headaches 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 Left leg cellulitis [...] TIBIAL ANGIOPLASTY; Surgeon: Archie Olvera MD; Location: [facility]; Service: Vascular; Laterality: N/A; CONTRAST: 50 ML, FT: 2 MIN 54 SEC, DOSE: 66 MGY. AORTOGRAM Left 07/03/2025 Procedure: ARTERIOGRAM LOWER EXTREMITY; Surgeon: Vaughn Hollingsworth DO; Location: [facility]; Service: Vascular; Laterality: Left; FT-6MINS 24SEC 140 MGY CONTRAST -15ML BACK SURGERY FOR DISC HERNIATION CARDIAC CATHETERIZATION CARDIAC CATHETERIZATION N/A 09/04/2024 Procedure: Peripheral angiography - Left lower extremity angio - Right femoral access; Surgeon: Jared Marcano MD; Location: [facility]; Service: Peripheral Vascular; Laterality: N/A; CORONARY ANGIOPLASTY WITH STENT PLACEMENT stent x 1 INCISION AND DRAINAGE FOOT Left 06/17/2023 Procedure: LEFT FOOT DEBRIDEMENT WOUND VACUUM ASSISTED CLOSURE; Surgeon: Cecil Buenrostro Jr., MD;Location: [facility]; Service: Orthopedics; Laterality: Left; INCISION AND DRAINAGE LEG Left 07/25/2023 Procedure: INCISION AND DRAINAGE HEEL, WOUND VAC; Surgeon: Cecil Buenrostro Jr., MD; Location: [facility]; Service: Orthopedics; Laterality: Left; INCISION AND DRAINAGE LEG Left 07/03/2025 Procedure: DEBRIDEMENT WOUND, PLACEMENT OF WOUND VAC; Surgeon: Vuaghn Hollingsworth DO; Location: [facility]; Service: Vascular; Laterality: Left; INTERVENTIONAL RADIOLOGY PROCEDURE N/A 05/02/2019 Procedure: IVC FILTER PLACEMENT; Surgeon: Pedro Zapien MD; Location: [facility]; Service: Interventional Radiology INTERVENTIONAL RADIOLOGY PROCEDURE Left 09/07/2024 Procedure: LEFT peroneal arteriovenous fistula embolization - Right femoral access; Surgeon: Jared Marcano MD; Location: [facility]; Service: Cardiovascular; Laterality: Left; Please coordinate with Gautam Patel ([facility]) [phone] who will bring coils LUMBAR DISCECTOMY N/A 05/03/2019 Procedure: THORACIC LAMINECTOMY T11-12; Surgeon: Tyree Tan MD; Location: [facility]; Service: Neurosurgery General Information Row Name 07/05/25 4498 Physical Therapy Time and Intention Document Type [...] tolerance;pain;strength;sensation/sensory awareness;range of motion (ROM) -IG User Llaens (r) = Recorded By, (t) = Taken By, (c) = Cosigned By Initials Name Provider Type Hayden Anne, MARY Physical Therapist Mobility Row Name 07/05/25 1620 Bed Mobility Bed Mobility rolling left;rolling right -IG Rolling Left Preston (Bed Mobility) standby assist -IG Rolling Right Preston (Bed Mobility) standby assist -IG Assistive Device (Bed Mobility) bed rails -IG Row Name 07/05/25 1620 Bed-Chair Transfer Bed-Chair Preston (Transfers) dependent (less than 25% patient effort);2 [...] Name 07/05/25 1622 Pain Pretreatment Pain Rating 02/20 -IG Posttreatment Pain Rating 6/10 -IG Pain Location buttock;extremity -IG Pain Side/Orientation left;lower -IG Pain Management Interventions exercise or physical activity utilized -IG Response to Pain Interventions activity participation with tolerable pain -IG Row Name 07/05/25 162 Plan of Care Review Plan of Care [...] Post Patient Position Sitting -IG Row Name 07/05/25 1622 Positioning and Restraints Pre-Treatment Position in bed -IG Post Treatment Position chair -IG In Chair notified nsg;reclined;call light within reach;encouraged to call for assist;exit alarm on;on mechanical lift sling;waffle cushion;legs elevated -IG User Llanes (r) = Recorded By, (t) = Taken By, (c) = Cosigned By Initials Name Provider Type IG Hayden Matias, PT Physical Therapist Outcome Measures Row Name 07/05/25 1623 How much help from another person do [...] Therapist Physical Therapy Education Title: PT OT ELASTIC YARN TWISTER HELPER Therapies (In Progress) Topic: Physical Therapy (Done) [...] Dates Name Provider Type Discipline 02/26/21 - Mirela Hsu, PT Physical Therapist PT 01/02/21 - Leonie [...] PT Received On 07/05/25 -IG Timed Charges 85938 - PT Therapeutic Activity Minutes 23 -IG Total Minutes Timed Charges Total Minutes 23 -IG Total Minutes 23 -IG User Llanes (r) = Recorded By, (t) = Taken By, (c) = Cosigned By Initials Name Provider Type IG Hayden Matias, PT Physical Therapist Therapy Charges for Today Code Description Service Date Service Provider Modifiers Qty [id number] HC PT THERAPEUTIC ACT EA 15 MIN 07/05/2025 Hayden Matias, PT GP 2 PT G-Codes Outcome Measure Options: AM-PAC 6 Clicks Basic Mobility (PT) AM-PAC 6 Clicks Score (PT): 10 AM-PAC 6 Clicks Score (OT): 13 PT Discharge Summary Anticipated Discharge Disposition (PT): senior living facility Hayden Matias PT 07/05/2025 * Therapy [...] associated with indwelling urethral catheter, initial encounter T83.417D099.64 N39.0 599.0 4. Diarrhea, unspecified type R19.7 [...] of migraine headaches 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 Left leg cellulitis [...] LOWER EXTREMITY; Surgeon: Vaughn Hollingsworth DO; Location: [facility]; Service: Vascular; Laterality: Left; FT-6MINS 24SEC 140 MGY CONTRAST -15ML BACK SURGERY FOR DISC HERNIATION CARDIAC CATHETERIZATION CARDIAC CATHETERIZATION N/A 09/04/2024 Procedure: Peripheral angiography - Left lower extremity angio - Right femoral access; Surgeon: Jared Marcano MD; Location: [facility]; Service: Peripheral Vascular; Laterality: N/A; CORONARY ANGIOPLASTY WITH STENT PLACEMENT stent x 1 INCISION AND DRAINAGE FOOT Left 06/17/2023 Procedure: LEFT FOOT DEBRIDEMENT WOUND VACUUM ASSISTED CLOSURE; Surgeon: Cecil Buenrostro Jr., MD;Location: [facility]; Service: Orthopedics; Laterality: Left; INCISION AND DRAINAGE LEG Left 07/25/2023 Procedure: INCISION AND DRAINAGE HEEL, WOUND VAC; Surgeon: Cecil Buenrostro Jr., MD; Location: [facility]; Service: Orthopedics; Laterality: Left; INCISION AND DRAINAGE LEG Left 07/03/2025 Procedure: DEBRIDEMENT WOUND, PLACEMENT OF WOUND VAC; Surgeon: Vaughn Hollingsworth DO; Location: [facility]; Service: Vascular; Laterality: Left; INTERVENTIONAL RADIOLOGY PROCEDURE N/A 05/02/2019 Procedure: IVC FILTER PLACEMENT; Surgeon: Pedro Zapien MD; Location: [facility]; Service: Interventional Radiology INTERVENTIONAL RADIOLOGY PROCEDURE Left 09/07/2024 Procedure: LEFT peroneal arteriovenous fistula embolization - Right femoral access; Surgeon: Jared Marcano MD; Location: [facility]; Service: Cardiovascular; Laterality: Left; Please coordinate with Gautam Patel ([facility]) [phone] who will bring coils LUMBAR DISCECTOMY N/A 05/03/2019 Procedure: THORACIC LAMINECTOMY T11-12; Surgeon: Tyree Tan MD; Location: [facility]; Service: Neurosurgery General Information Row Name 07/05/25 1115 OT Time and Intention Subjective Information no complaints -CHRISTA Document Type progress note/recertification -CHRISTA Mode of Treatment occupational therapy;co-treatment -CHRISTA Patient Effort good -CHRISTA Symptoms Noted During/After Treatment none -CHRISTA Row Name 07/05/25 9684 General Information Patient Profile Reviewed yes -CHRISTA Existing Precautions/Restrictions fall;other (see comments) 07/03 transmetatarsal debridement and angiogram LLE with wound vac -CHRISTA Barriers to Rehab medically complex;previous functional deficit;physical barrier -CHRISTA Row Name 07/05/25 111 Cognition Orientation Status (Cognition) oriented x 3 -CHRISTA Row Name 07/05/25 1114 Safety Issues/Impairments Affecting Functional Mobility Impairments Affecting Function (Mobility) balance;endurance/activity tolerance;pain;strength;sensation/sensory awareness;range of motion (ROM) -CHRISTA User Llanes (r) = Recorded By, (t) = Taken By, (c) = Cosigned By Initials Name Provider Type Fátima Castle, OT Occupational Therapist Mobility/ADL's Row Name 07/05/25 1118 Bed Mobility Rolling Left Preston (Bed Mobility) standby assist -CHRISTA Rolling Right Preston (Bed Mobility) standby assist -CHRISTA Assistive Device (Bed Mobility) bed rails -CHRISTA Comment, (Bed Mobility) pt. was able to roll quickly without assist to place sling today -CHRISTA Row Name 07/05/25 111 Transfers Transfers bed-chair transfer -CHRISTA Row Name 07/05/25 1118 Bed-Chair Transfer Bed-Chair Preston (Transfers) dependent (less than 25% patient effort);2 [...] OT) rolling to left;rolling to right -CHRISTA Preston Level/Cues Needed (Bed Mobility Goal 1, OT) minimum assist (75% or more patient effort);verbal cues required;nonverbal cues (demo/gesture) required -CHRISTA Time Frame (Bed Mobility Goal 1, OT) exterminator goal (LTG);10 days -CHRISTA Progress/Outcomes (Bed Mobility Goal 1, OT) goal met -CHRISTA Row Name 07/05/251126 Transfer Goal 1 (OT) Activity/Assistive Device (Transfer Goal 1, OT) [id number] lateral -CHRISTA Preston Level/Cues Needed (Transfer Goal 1, OT) moderate assist (50-74% patient effort) -CHRISTA Time Frame (Transfer Goal 1, OT) exterminator goal (LTG);10 days -CHRISTA Progress/Outcome (Transfer Goal 1, OT) goal revised this date;goal ongoing -CHRISTA Row Name 07/05/251126 Bathing Goal 1 (OT) Activity/Device (Bathing Goal 1, OT) upper body bathing -CHRISTA Preston Level/Cues Needed (Bathing Goal 1, OT) minimum [...] -CHRISTA Time Frame (Strength Goal 1, OT) exterminator goal (LTG);10 days -CHRISTA Progress/Outcome (Strength Goal [...] Assessment Pretreatment Pain Rating 6/10 WBFS pain 10 -CHRISTA Posttreatment Pain Rating /10 -CHRISTA Pain Location extremity;buttock -CHRISTA Pain Side/Orientation [...] Review/Discharge Plan (OT) Anticipated Discharge Disposition (OT) senior living facility - Row Name 07/05/25 112 Vital Signs Pre Systolic BP Rehab 145 -CHRISTA Pre Treatment Diastolic BP 84 -CHRISTA Pretreatment Heart Rate (beats/min) 77 -CHRISTA Posttreatment Heart Rate (beats/min) 82 -CHRISTA Pre SpO2 (%) 94 -CHRISTA O2 Delivery Pre Treatment room air -CHRISTA O2 Delivery Intra Treatment room air -CHRITSA Post SpO2 (%) 95 -CHRISTA O2 Delivery [...] Clicks Score (OT) 13 -CHRISTA Row Name 07/05/25 1129 Functional Assessment Outcome Measure Options AM-PAC 6 Clicks Daily Activity (OT) - User Llanes (r) = Recorded By, (t) = Taken By, (c) = Cosigned By Initials Name Provider Type Fátima Castle OT Occupational Therapist Occupational Therapy Education Title: PT OT ELASTIC YARN TWISTER HELPER Therapies (In Progress) Topic: Occupational Therapy (In Progress) Point: ADL training (Done) Learning Progress Summary Patient Acceptance, E,D, VU,NR by CHRISTA at 07/05/2025 1129 Comment: benefit of core TE to assist with balance Point: Home exercise program (Done) Learning Progress Summary Patient Acceptance, E,D, VU,NR by CHRISTA at 07/05/2025 112 Comment: benefit of core TE to assist with balance User Llanes Initials Effective Dates Name Provider Type [facility] CHRISTA 03/23/23 - Fátima Mora OT Occupational [...] Re-Cert Due Date 07/15/25 -CHRISTA Timed Charges 44531 - OT Therapeutic Exercise Minutes 10 -CHRISTA 98788 - OT Therapeutic Activity Minutes 7 -CHRISTA Total Minutes Timed Charges Total Minutes 17 -CHRISTA Total Minutes 17 -CHRISTA User Llanes (r) = Recorded By, (t) = Taken By, (c) = Cosigned By Initials Name Provider Type Fátima Castle OT Occupational Therapist Therapy Charges for Today Code Description Service Date Service Provider Modifiers Qty [id number] OT THER PROC EA 15 MIN 07/05/2025 Fátima Mora OT GO 1 Fátima Mora OT 07/05/2025 * Case Management/Social Work - Monalisa Reilly RN - 07/04/2025 11:17 AM EDT Continued Stay Note [place] Patient Name: Trung Pool Today's Date: 07/04/2025 [...] Reilly RN * Therapy Re-Evaluation - Duglas Mayes, PT - 07/04/2025 10:59 AM EDT Acute Care - Wound/Debridement Initial Evaluation [facility] Patient Name: Trung Pool : 1955 Today's Date: 07/04/2025 Admit Date: 06/25/2025 Visit Dx: ICD-10-CM ICD-9-CM 1. Cellulitis of left lower extremity L03.116 682.6 2. Hematuria, unspecified type R31.9 599.70 3. Urinary tract infection associated with indwelling urethral catheter, initial encounter T83.754D569.64 N39.0 599.0 4. Diarrhea, unspecified type R19.7 [...] of migraine headaches 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 Left leg cellulitis [...] fusion C3-4; Surgeon: Tyree Tan MD; Location: [facility]; Service: Neurosurgery; Laterality: Bilateral; AORTOGRAM N/A 01/26/2024 Procedure: ABDOMINAL AORTIC ANGIOGRAM, LLE ANGIOGRAM, LEFT ANTERIOR TIBIAL ATHERECTOMY, LEFT ANTERIOR TIBIAL ANGIOPLASTY; Surgeon: Archie Olvera MD; Location: [facility]; Service: Vascular; Laterality: N/A; CONTRAST: 50 ML, FT: 2 MIN 54 SEC, DOSE: 66 MGY. AORTOGRAM Left 07/03/2025 Procedure: ARTERIOGRAM LOWER EXTREMITY; Surgeon: Vaughn Hollingsworth DO; Location: [facility]; Service: Vascular; Laterality: Left; FT-6MINS 24SEC 140 MGY CONTRAST -15ML BACK SURGERY FOR DISC HERNIATION CARDIAC CATHETERIZATION CARDIAC CATHETERIZATION N/A 09/04/2024 Procedure: Peripheral angiography - Left lower extremity angio - Right femoral access; Surgeon: Jared Marcano MD; Location: [facility]; Service: Peripheral Vascular; Laterality: N/A; CORONARY ANGIOPLASTY WITH STENT PLACEMENT stent x 1 INCISION AND DRAINAGE FOOT Left 06/17/2023 Procedure: LEFT FOOT DEBRIDEMENT WOUND VACUUM ASSISTED CLOSURE; Surgeon: Cecil Buenrostro Jr., MD;Location: [facility]; Service: Orthopedics; Laterality: Left; INCISION AND [...] FILTER PLACEMENT; Surgeon: Pedro Zapien MD; Location: [facility]; Service: Interventional Radiology INTERVENTIONAL RADIOLOGY PROCEDURE Left 09/07/2024 Procedure: LEFT peroneal arteriovenous fistula embolization - Right femoral access; Surgeon: Jared Marcano MD; Location: [facility]; Service: Cardiovascular; Laterality: Left; Please coordinate with Gautamconor Patel ([facility] [phone] who will bring coils LUMBAR DISCECTOMY N/A [...] groin Traumatic Skin Tear (Active) Base moist;clean;bleeding 07/03/25 175 NPWT (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 Wound Therapy) 07/03/25 LEFT FOOT (Active) Therapy Setting continuous therapy 07/04/25 1000 Dressing foam, black;transparent dressing 07/03/252052 Contact Layer silicone 07/03/251643 Pressure Setting 125 mmHg 07/04/25 1000 WOUND DEBRIDEMENT PT Assessment (Last 12 Hours) PT Evaluation and Treatment Row Name 07/04/25 1000 Physical Therapy Time and Intention Subjective Information complains of;weakness;fatigue -MF Document Type evaluation;therapy note (daily note);wound care -MF Mode of [...] assessed: 06/26/25 - Time first assessed: 0 -EW Present on Original Admission: Y [...] LEFT FOOT -RS Additional Comments: PER MD DARRICK REYNOSO Therapy Setting continuous therapy - Pressure Setting 125 mmHg - 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) - Properties Group Placement Date: 07/03/25 -RS Location: LEFT FOOT -RS Additional Comments: PER MD [place] 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) - Properties Group Placement Date: 07/03/25 -RS Location: LEFT FOOT -RS Additional Comments: PER MD DARRICK REYNOSO 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) - [facility] Group Placement Date: 07/03/25 -RS Location: LEFT FOOT -RS Additional Comments: PER MD DARRICK REYNOSO Row Name 07/04/25 1000 Coping Observed [...] Nurse Physical Therapy Education Title: PT OT ELASTIC YARN TWISTER HELPER Therapies (In Progress) Topic: Physical Therapy (Done) [...] - Mirela Hsu, PT Physical Therapist PT 01/02/21 - Leonie Thomas Physical Therapist PT Recommendation and Plan Recommended discharge disposition is based on the functional assessment performed by PT/OT/Speech therapy (as applicable) and may not reflect the medical necessity determined by your provider or services covered by an individual patient's insurance plan or patient resource. Anticipated Discharge Disposition (PT): senior living facility Planned Therapy Interventions (PT): wound care, [...] PT Eval/Re-eval Minutes 25 -MF Wound Care 42125 Neg Press (DME) wound TO 50 sqcm -MF [id number] Pressure wound to 50 sqcm 40 -MF Total Minutes Untimed Charges Total Minutes 65 -MF Total Minutes 65 -MF User Llanes (r) = Recorded By, (t) = Taken By, (c) = Cosigned By Initials Name Provider Type Duglas Mayes, PT Physical Therapist PT G-Codes Outcome Measure [...] he is safe to be monitored on thefloor at this time. We did obtain a [...] 07/02/2025 2:22 PM EDT Continued Stay Note [facility] Patient Name: Trung Pool Today's Date: [...] 06/29/2025 3:57 PM EDT Continued Stay Note [facility] Patient Name: Trung Pool Today's Date: 06/29/2025 Admit Date: 06/25/2025 Plan: Home, [facility] health Discharge Plan Row Name 06/29/25 1556 Plan Plan Home, [facility] health Plan Comments Discussed Mr Pool in [facility]. Mr Pool is not medically ready for [...] associated with indwelling urethral catheter, initial encounter T83.166K767.64 N39.0 599.0 4. Diarrhea, unspecified type R19.7 [...] fusion C3-4; Surgeon: Tyree Tan MD; Location: [facility]; Service: Neurosurgery; Laterality: Bilateral; AORTOGRAM N/A [...] ASSISTED CLOSURE; Surgeon: Cecil Buenrostro Jr., MD;Location: [facility]; Service: Orthopedics; Laterality: Left; INCISION AND DRAINAGE LEG Left 07/25/2023 Procedure: INCISION AND DRAINAGE HEEL, WOUND VAC; Surgeon: Cecil Buenrostro Jr., MD; Location: [facility]; Service: Orthopedics; Laterality: Left; INTERVENTIONAL RADIOLOGY PROCEDURE N/A 05/02/2019 Procedure: IVC FILTER PLACEMENT; Surgeon: Pedro Zapien MD; Location: [facility]; Service: Interventional Radiology INTERVENTIONAL RADIOLOGY PROCEDURE Left 09/07/2024 Procedure: LEFT peroneal arteriovenous fistula embolization - Right femoral access; Surgeon: Jared Marcano MD; Location: [facility]; Service: Cardiovascular; Laterality: Left; Please coordinate with Gautam Patel ([facility]) [phone] who will bring coils LUMBAR DISCECTOMY N/A [...] Leonie Thomas Physical Therapist Mobility Row Name 06/29/25903 Bed Mobility Bed Mobility rolling left;rolling right -ML Rolling Right Preston (Bed Mobility) moderate assist (50% patient effort);1 person assist -ML Scooting/Bridging Preston (Bed Mobility) minimum assist (75% patient effort);1 person assist -ML Assistive Device (Bed Mobility) bed rails;head of bed elevated -ML Row Name 06/29/25903 Bed-Chair Transfer Bed-Chair Preston (Transfers) dependent (less than 25% patient effort);2 person assist -ML Assistive Device (Bed-Chair Transfers) lift device -ML User Llanes (r) = Recorded By, [...] at Edge of Bed-3 -ML Row Name 06/29/2507 Functional Assessment Outcome Measure Options AM-PAC 6 Clicks Basic Mobility (PT) -ML User Llanes (r) = Recorded By, (t) = Taken By, (c) = Cosigned By Initials Name Provider Type Leonie Hawthorne Physical Therapist Physical Therapy Education Title: PT OT ELASTIC YARN TWISTER HELPER Therapies (In Progress) Topic: Physical Therapy (Done) [...] - Mirela Hsu, PT Physical Therapist PT 01/02/21 - Leonie [...] PT Received On 06/29/25 -ML Timed Charges 98909 - PT Therapeutic Activity Minutes 15 -ML Total Minutes Timed Charges Total Minutes 15 -ML Total Minutes 15 -ML User Llanes (r) = Recorded By, (t) = Taken By, (c) = Cosigned By Initials Name Provider Type ML Leonie Thomas Physical Therapist Therapy Charges for Today Code Description Service Date Service Provider Modifiers Qty [id number] HC PT THERAPEUTIC ACT EA 15 MIN 06/29/2025 Leonie Thomas GP 1 PT G-Codes Outcome Measure Options: AM-PAC 6 Clicks Basic Mobility (PT) AM-PAC 6 Clicks Score (PT): 9 AM-PAC 6 Clicks Score (OT): 12 PT Discharge Summary Anticipated Discharge Disposition (PT): senior living facility Leonie Thomas 06/29/2025 [1] Patient Active Problem List Diagnosis [...] of migraine headaches 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 Left leg cellulitis [...] associated with indwelling urethral catheter, initial encounter T83.143F923.64 N39.0 599.0 4. Diarrhea, unspecified type R19.7 [...] fusion C3-4; Surgeon: Tyree Tan MD; Location: [facility]; Service: Neurosurgery; Laterality: Bilateral; AORTOGRAM N/A [...] ASSISTED CLOSURE; Surgeon: Cecil Buenrostro Jr., MD;Location: [facility]; Service: Orthopedics; Laterality: Left; INCISION AND DRAINAGE LEG Left 07/25/2023 Procedure: INCISION AND DRAINAGE HEEL, WOUND VAC; Surgeon: Cecil Buenrostro Jr., MD; Location: [facility]; Service: Orthopedics; Laterality: Left; INTERVENTIONAL RADIOLOGY PROCEDURE N/A 05/02/2019 Procedure: IVC FILTER PLACEMENT; Surgeon: Pedro Zapien MD; Location: [facility]; Service: Interventional Radiology INTERVENTIONAL RADIOLOGY PROCEDURE Left 09/07/2024 Procedure: LEFT peroneal arteriovenous fistula embolization - Right femoral access; Surgeon: Jared Marcano MD; Location: [facility]; Service: Cardiovascular; Laterality: Left; Please coordinate with Gautam Patel ([facility]) [phone] who will bring coils LUMBAR DISCECTOMY N/A 05/03/2019 Procedure: THORACIC LAMINECTOMY T11-12; Surgeon: Tyree Tan MD; Location: [facility]; Service: Neurosurgery General Information Row Name [...] Initials Name Provider Type CHRISTA Fátima Mora, SOCO Occupational Therapist Mobility/ADL's Row Name 06/29/25926 Bed Mobility Bed Mobility rolling left;rolling right -CHRISTA Rolling Left Preston (Bed Mobility) minimum assist (75% patient effort);verbal cues -CHRISTA Rolling Right Preston (Bed Mobility) moderate assist (50% patient effort);1 person assist;verbal cues -CHRISTA Row Name 06/29/25926 Transfers Transfers bed-chair transfer -CHRISTA Row Name 06/29/25926 Bed-Chair Transfer Bed-Chair Preston (Transfers) dependent (less than 25% patient effort);2 person assist -CHRISTA Assistive Device (Bed-Chair Transfers) lift device -CHRISTA Row Name 06/29/25926 Activities of Daily Living BADL Assessment/Intervention grooming;toileting -CHRISTA Row Name 06/29/25926 Upper Body Dressing Assessment/Training Preston Level (Upper Body Dressing) doff;don;moderate assist (50% patient effort) -CHRISTA Position (Upper Body Dressing) supported sitting -CHRISTA Comment, (Upper Body Dressing) limited by lines, hospital gown -CHRISTA Row Name 06/29/25926 Grooming Assessment/Training Preston Level (Grooming) wash face, hands;set up -CHRISTA Position (Grooming) supported sitting -CHRISTA Row Name 06/29/25926 Toileting Assessment/Training Preston Level (Toileting) dependent (less than 25% patient [...] OT) rolling to left;rolling to right -CHRISTA Preston Level/Cues Needed (Bed Mobility Goal 1, OT) minimum assist (75% or more patient effort);verbal cues required;nonverbal cues (demo/gesture) required -CHRISTA Time Frame (Bed Mobility Goal 1, OT) senior care goal (LTG);10 days -CHRISTA Progress/Outcomes (Bed Mobility Goal 1, OT) new goal -CHRISTA Row Name 06/29/25931 Transfer Goal 1 (OT) Activity/Assistive Device (Transfer Goal 1, OT) zym-mw-rtalb/ylvyx-pr-sri lateral transfer -CHRISTA Preston Level/Cues Needed (Transfer Goal 1, OT) contact guard required -CHRISTA Time Frame (Transfer Goal 1, OT) senior care goal (LTG);10 days -CHRISTA Progress/Outcome (Transfer Goal 1, OT) goal revised this date;goal ongoing -CHRISTA Row Name 06/29/25931 Toileting Goal 1 (OT) Activity/Device (Toileting Goal 1, OT) adjust/manage clothing;perform perineal hygiene;commode, bedside with drop arms -CHRISTA Preston Level/Cues Needed (Toileting Goal 1, OT) moderate [...] Name 06/29/25928 Pain Assessment Pretreatment Pain Rating 03/22 -CHRISTA Posttreatment Pain Rating 03/22 -CHRISTA Pain [...] Review/Discharge Plan (OT) Anticipated Discharge Disposition (OT) senior living facility - Row Name 06/29/25928 Vital Signs Pre Systolic BP Rehab 132 [...] Post Patient Position Sitting -CHRISTA Row Name 06/29/25928 Positioning and Restraints Pre-Treatment Position in bed -CHRISTA Post Treatment Position chair -CHRISTA In Chair notified nsg;reclined;call light within reach;encouraged to call for assist;exit alarm on;waffle cushion;on mechanical lift sling;LLE elevated;with nsg -CHRISTA User Llanes (r) = Recorded By, (t) = Taken By, (c) = Cosigned By Initials Name Provider Type Fátima Castle, SOCO Occupational Therapist Outcome Measures Row Name 06/29/25931 How much help from another is currently [...] at Edge of Bed-3 -ML Row Name 06/29/2532 06/29/25906 Functional Assessment Outcome Measure Options AM-PAC 6 Clicks Daily Activity (OT) -CHRISTA AM-PAC 6 Clicks Basic Mobility (PT)-ML User Llanes (r) = Recorded By, (t) = Taken By, (c) = Cosigned By Initials Name Provider Type Fátima Castle, SOCO Occupational Therapist Leonie Hawthorne Physical Therapist Occupational Therapy Education Title: PT OT ELASTIC YARN TWISTER HELPER Therapies (In Progress) Topic: Occupational Therapy (In [...] Re-Cert Due Date 07/06/25 -CHRISTA Timed Charges 56547 - OT Therapeutic Activity Minutes 7 -CHRISTA 89718 - OT Self Care/Mgmt Minutes 8 -CHRISTA Total Minutes Timed Charges Total Minutes 15 -CHRISTA Total Minutes 15 -CHRISTA User Llanes (r) = Recorded By, (t) = Taken By, (c) = Cosigned By Initials Name Provider Type CHRISTA Fátima Mora OT Occupational Therapist Therapy Charges for Today Code Description Service Date Service Provider Modifiers Qty [id number] HC OT SELF CARE/MGMT/TRAIN EA 15 MIN [...] of migraine headaches 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 Left leg cellulitis [...] 06/28/2025 1:18 PM EDT Continued Stay Note [facility] Patient Name: Trung Pool Today's Date: 06/28/2025 Admit Date: 06/25/2025 Plan: Home, [facility] Discharge Plan Row Name 06/28/25 1312 Plan Plan Home, [facility] Patient/Family in Agreement with Plan yes Plan Comments PT and OT have worked with Mr Pool and they are recommending SNF. I spoke with Mr Pool at bedside about this. At this time he would like to decline SNF, and return home with home health. I called [facility], and they were able to confirm that Mr Pool is a current patient of theirs for senior living only. Case management will place resumption of [...] associated with indwelling urethral catheter, initial encounter T83.995P210.64 N39.0 599.0 4. Diarrhea, unspecified type R19.7 [...] LEFT; Surgeon: Cecil Buenrostro Jr., MD; Location: [facility]; Service: Orthopedics; Laterality: Left; ANTERIOR CERVICAL DISCECTOMY W/ FUSION Bilateral 07/17/2020 Procedure: Cervical discectomy anterior with fusion C3-4; Surgeon: Tyree Tan MD; Location:[facility]; Service: Neurosurgery; Laterality: Bilateral; AORTOGRAM N/A 01/26/2024 Procedure: ABDOMINAL AORTIC ANGIOGRAM, LLE ANGIOGRAM, LEFT ANTERIOR TIBIAL ATHERECTOMY, LEFT ANTERIOR TIBIAL ANGIOPLASTY; Surgeon: Archie Olvera MD; Location: [facility]; Service: Vascular; Laterality: N/A; CONTRAST: [...] Laterality: Left; Please coordinate with Gautam Patel ([facility] [phone] who will bring coils LUMBAR DISCECTOMY N/A 05/03/2019 Procedure: THORACIC LAMINECTOMY T11-12; Surgeon: Tyree Tan MD; Location: [facility]; Service: Neurosurgery General Information Row Name 06/26/25 1435 Physical Therapy Time and Intention Document Type evaluation -NS Mode of Treatment physical therapy;co-treatment -NS Row Name 06/26/25 5458 General Information Patient Profile Reviewed yes -NS [...] functional deficit;physical barrier -NS Row Name 06/26/25 2689 Living Environment Current Living Arrangements home -NS People in Home alone -NS Row Name 06/26/25 1437 Home Main Entrance Number of Stairs, Main Entrance none ramp to enter -NS [facility] 06/26/25 [facility] Stairs Within Home, Primary Number of Stairs, Within Home, Primary none -NS [facility] 06/26/25 [facility] Cognition Orientation Status (Cognition) oriented x 3 -NS [facility] 06/26/25 [facility] Safety Issues/Impairments Affecting Functional Mobility Safety Issues [...] Bed Mobility supine-sit;sit-supine;scooting/bridging;rolling left -NS Rolling Left Preston (Bed Mobility) supervision;verbal cues -NS Scooting/Bridging Preston (Bed Mobility) supervision;verbal cues -NS Supine-Sit Preston (Bed Mobility) contact guard;verbal cues -NS Sit-Supine Preston (Bed Mobility) standby assist;verbal cues -NS Assistive Device (Bed Mobility) bed rails;head of bed elevated -NS Comment, (Bed Mobility) cues for sequencing all mobility, increased time and effort to complete -NS [facility] 06/26/251434 Transfers Comment, (Transfers) Pt declined transfer to the chair due to sacral wounds. -NS [facility] 06/26/251434 Bed-Chair Transfer Bed-Chair Preston (Transfers) not tested -NS [facility] 06/26/25 [facility] Sit-Stand Transfer Sit-Stand Preston (Transfers) not tested -NS [facility] 06/26/25 [facility] Gait/Stairs (Locomotion) Preston Level (Gait) not tested -NS Comment, (Gait/Stairs) Pt is nonambulatory at baseline. -NS User Llanes (r) = Recorded By, (t) = Taken By, (c) = Cosigned By Initials Name Provider Type Mirela Gabriel PT Physical Therapist Obj/Interventions Row Name 06/26/251434 Range of Motion Comprehensive General Range of Motion bilateral lower extremity ROM WFL -NS [facility] 10/14/25 1435 Strength Comprehensive (MMT) General Manual Muscle Testing (MMT) Assessment lower extremity strength deficits identified -NS Comment, General Manual Muscle Testing (MMT) Assessment Unable to assess L foot due to wrapping, L knee ext: 3/ -NS Row Name 06/26/251434 Balance Balance Assessment sitting static balance;sitting dynamic balance -NS Static Sitting Balance standby assist -NS Dynamic Sitting Balance contact guard -NS Position, Sitting Balance unsupported;sitting edge of bed -NS Row Name 06/26/251434 Sensory Assessment (Somatosensory) Sensory Assessment (Somatosensory) bilateral LE -NS Bilateral LE Sensory Assessment general sensation;impaired -NS User Llanes (r) = Recorded By, (t) = Taken By, (c) = Cosigned By Initials Name Provider Type Mirela Gabriel PT Physical Therapist Goals/Plan Row Name 06/26/251434 Bed Mobility Goal 1 (PT) Activity/Assistive Device (Bed Mobility Goal 1, PT) supine to sit;rolling to left;rolling to right -NS Preston Level/Cues Needed (Bed Mobility Goal 1, PT) independent -NS Time Frame (Bed Mobility Goal 1, PT) short term goal (STG);5 days - Row Name 06/26/251434 Transfer Goal 1 (PT) Activity/Assistive Device (Transfer Goal 1, PT) wwi-ay-gqdkm/ooeba-cq-qmx;bmn-wg-exclf/kudex-ts-xfa-NS Preston Level/Cues Needed (Transfer Goal 1, PT) minimum assist (75% or more patient effort) -NS Time Frame (Transfer Goal 1, PT) exterminator goal (LTG);10 days - Row Name 06/26/251434 Balance Goal 1 (PT) Activity/Assistive Device (Balance Goal) sitting dynamic balance -NS Preston Level/Cues Needed (Balance Goal 1, PT) supervision required -NS Time Frame (Balance Goal 1, PT) short-term goal (STG);3-5 days - Row Name 06/26/25 143 Therapy Assessment/Plan (PT) Planned Therapy Interventions (PT) balance training;bed mobility training;home exercise program;neuromuscular re-education;strengthening;ROM (range of motion);patient/family education;transfer training -NS User Llanes (r) = Recorded By, (t) = Taken By, (c) = Cosigned By Initials Name Provider Type NS Hsu, Mirela, PT Physical Therapist Clinical Impression Row Name [...] Physical Therapist Outcome Measures Row Name 06/26/25 4130 How much help from another person do [...] (OT) - AM-PAC 6 Clicks Basic Mobility (PT)-CHICHO User Llanes (r) = Recorded By, (t) = Taken By, (c) = Cosigned By Initials Name Provider Type NS Mirela Hsu, MARY Physical Therapist Crys Louise OT Occupational Therapist Physical Therapy Education Title: PT OT ELASTIC YARN TWISTER HELPER Therapies (In Progress) Topic: Physical Therapy (Done) Point: Mobility training (Done) Learning Progress Summary Patient Acceptance, E, VU,NR by CHICHO at 06/26/2025 161 Point: Home exercise program (Done) Learning Progress Summary Patient Acceptance, E, VU,NR by NS at 06/26/2025 1618 Point: Body mechanics (Done) Learning Progress Summary Patient Acceptance, E, VU,NR by NS at 06/26/2025 1618 Point: Precautions (Done) Learning Progress Summary Patient Acceptance, E, VU,NR by NS at 06/26/2025 [...] Re-Cert Due Date 07/06/25 -NS Timed Charges 47706 - PT Therapeutic Activity Minutes 10 -NS Untimed Charges PT Eval/Re-eval Minutes 62 -NS Total Minutes Timed Charges Total Minutes 10 -NS Untimed Charges Total Minutes 62 -NS Total Minutes 72 -NS User Llanes (r) = Recorded By, (t) = Taken By, (c) = Cosigned By Initials Name Provider Type Mirela Gabriel, PT Physical Therapist Therapy Charges for Today Code Description Service Date Service Provider Modifiers Qty 88632080571 HC PT THERAPEUTIC ACT EA 15 MIN 06/26/2025 Mirela Hsu, PT GP 1 63812616743 HC PT EVAL LOW COMPLEXITY 5 06/26/2025 Mirela Hsu, PT 1 PT G-Codes Outcome Measure Options: AM-PAC 6 Clicks Daily Activity (OT) AM-PAC 6 Clicks Score (PT): 10 AM-PAC 6 Clicks Score (OT): 12 PT Discharge Summary Anticipated Discharge Disposition (PT): senior living facility Mirela Hsu PT 06/26/2025 [1] Patient [...] of migraine headaches 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 Left leg cellulitis [...] norovirus * Therapy Evaluation - Crys Ferrari, SOCO - 06/26/2025 2:34 PM EDT Images from the original note were not included. Patient Name: Trung Pool : 1955 Today's Date: 06/26/2025 Admit Date: 06/25/2025 Visit Dx: ICD-10-CM ICD-9-CM 1. Cellulitis of left lower extremity L03.116 682.6 2. Hematuria, unspecified type R31.9 599.70 3. Urinary tract infection associated with indwelling urethral catheter, initial encounter T83.685C644.64 N39.0 599.0 4. Diarrhea, unspecified type R19.7 [...] LEFT; Surgeon: Cecil Buenrostro Jr., MD; Location: [facility]; Service: Orthopedics; Laterality: Left; ANTERIOR CERVICAL DISCECTOMY W/ FUSION Bilateral 07/17/2020 Procedure: Cervical discectomy anterior with fusion C3-4; Surgeon: Tyree Tan MD; Location:[facility]; Service: Neurosurgery; Laterality: Bilateral; AORTOGRAM N/A 01/26/2024 Procedure: ABDOMINAL AORTIC ANGIOGRAM, LLE ANGIOGRAM, LEFT ANTERIOR TIBIAL ATHERECTOMY, LEFT ANTERIOR TIBIAL ANGIOPLASTY; Surgeon: Archie Olvera MD; Location: [facility]; Service: Vascular; Laterality: N/A; CONTRAST: [...] Laterality: Left; Please coordinate with Gautam Patel ([facility] [phone] who will bring coils LUMBAR DISCECTOMY N/A 05/03/2019 Procedure: THORACIC LAMINECTOMY T11-12; Surgeon: Tyree Tan MD; Location: [facility]; Service: Neurosurgery General Information Row Name [...] deficit;cognitive status;physical barrier - Row Name 06/26/25 143 Living Environment Current Living Arrangements home - People in Home alone - Row Name 06/26/25 [facility] Home Main Entrance Number of Stairs, Main Entrance other (see comments) ramp - Row Name 06/26/25 143 Stairs Within Home, Primary Number of Stairs, Within Home, Primary none -[facility] Name 06/26/251433 Cognition Orientation Status (Cognition) oriented x 3 - Row Name 06/26/25 [facility] Safety Issues/Impairments Affecting Functional Mobility Safety Issues Affecting Function (Mobility) awareness of need for assistance;insight into deficits/self-awareness;safety precaution awareness;safety precautions follow-through/compliance;sequencing abilities - Impairments Affecting Function (Mobility) balance;endurance/activity tolerance;pain;strength;sensation/sensory awareness - User Llanes (r) = Recorded By, (t) = Taken By, (c) = Cosigned By Initials Name Provider Type Crys Ferrari OT Occupational Therapist Mobility/ADL's Row Name 06/26/251433 Bed Mobility Bed Mobility supine-sit;sit-supine;scooting/bridging;rolling left - Rolling Left Preston (Bed Mobility) supervision;verbal cues - Scooting/Bridging Preston (Bed Mobility) supervision;verbal cues - Supine-Sit Preston (Bed Mobility) standby assist;verbal cues - Sit-Supine Preston (Bed Mobility) standby assist;verbal cues - Assistive Device (Bed Mobility) bed rails;head of bed elevated -[facility] Name 06/26/251433 Transfers Comment, (Transfers) Pt declined OOB activity -[facility] Name 06/26/25 [facility] Functional Mobility Functional Mobility- Ind. Level unable to perform -[facility] Name 06/26/25 [facility] Activities of Daily Living BADL Assessment/Intervention upper body dressing -[facility] Name 06/26/25 [facility] Upper Body Dressing Assessment/Training Preston Level (Upper Body Dressing) doff;don;other (see comments);minimum assist (75% patient effort) - Position (Upper Body Dressing) edge of bed sitting - Comment, (Upper Body Dressing) hosp gown - User Llanes (r) = Recorded By, (t) = Taken By, (c) = Cosigned By Initials Name Provider Type Crys Ferrari OT Occupational Therapist Obj/Interventions Row Name 06/26/25 153 Sensory Assessment (Somatosensory) Sensory Assessment (Somatosensory) UE sensation intact -MC Row Name 06/26/251529 Vision Assessment/Intervention Visual Impairment/Limitations WFL -[facility] Name 06/26/251529 Range of Motion Comprehensive General Range of Motion bilateral upper extremity ROM WFL -[facility] Name 06/26/251529 Strength Comprehensive (MMT) General Manual Muscle Testing (MMT) Assessment upper extremity strength deficits identified - Comment, General Manual Muscle Testing (MMT) Assessment BUE grossly 4+/5 -[facility] Name 06/26/251529 Balance Balance Assessment sitting static balance;sitting dynamic balance - Static Sitting Balance standby assist - Dynamic Sitting Balance contact guard - Position, Sitting Balance unsupported;sitting edge of bed - Balance Interventions sitting;static;dynamic;occupation based/functional task - User Llanes (r) = Recorded By, (t) = Taken By, (c) = Cosigned By Initials Name Provider Type Crys Ferrari OT Occupational Therapist Goals/Plan [facility] Name 06/26/251535 Transfer Goal 1 (OT) Activity/Assistive Device (Transfer Goal 1, OT) commode, bedside with drop arms;eyb-eb-wjzmp/lonwt-ef-zvm lateral transfers - Preston Level/Cues Needed (Transfer Goal 1, OT) contact guard required - Time Frame (Transfer Goal 1, OT) senior care goal (LTG);10 days - Progress/Outcome (Transfer Goal 1, OT) goal ongoing -[facility] Name 06/26/251535 Toileting Goal 1 (OT) Activity/Device (Toileting Goal 1, OT) adjust/manage clothing;perform perineal hygiene;commode, bedside with drop arms - Preston Level/Cues Needed (Toileting Goal 1, OT) moderate assist (50-74% patient effort) - Time Frame (Toileting Goal 1, OT) short term goal (STG);5 days - Progress/Outcome (Toileting Goal 1, OT) goal ongoing -[facility] Name 06/26/251535 Therapy Assessment/Plan (OT) Planned Therapy Interventions (OT) activity tolerance training;adaptive equipment training;BADL retraining;functional balance retraining;IADL retraining;occupation/activity based interventions;patient/caregiver education/training;ROM/therapeutic exercise;strengthening exercise;transfer/mobility retraining - User Llanes (r) = Recorded By, (t) = Taken By, (c) = Cosigned By Initials Name Provider Type Crys Ferrari, SOCO Occupational Therapist Clinical Impression Row Name 06/26/25 [...] Interventions Met (OT) yes;skilled treatment is necessary - Therapy Frequency (OT) daily - Predicted Duration of Therapy Intervention (OT) 10 days - Row Name 06/26/25 153 Therapy Plan Review/Discharge Plan (OT) Anticipated Discharge Disposition (OT) senior living facility - Row Name 06/26/25 153 Vital Signs O2 Delivery Pre Treatment room air - O2 Delivery Intra Treatment room air - O2 Delivery Post Treatment room air - Pre Patient Position Supine - Intra Patient Position Sitting - Post Patient Position Supine -[facility] Name 06/26/25 153 Positioning and Restraints Pre-Treatment Position in bed - Post Treatment Position bed - In Bed notified nsg;supine;call light within reach;encouraged to call for assist;exit alarm on;siderails up x3;L heel elevated - User Llanes (r) = Recorded By, (t) = Taken By, (c) = Cosigned By Initials Name Provider Type Crys Ferrari, OT Occupational Therapist Outcome Measures Row Name 06/26/25 1544 How much help from another is currently needed... Putting on and taking off regular lower body clothing? 1 - Bathing (including washing, rinsing, and drying) 2 -MC Toileting (which includes using toilet bed chavis or urinal) 1 -MC Putting on and taking off regular upper body clothing 2 -MC Taking care of personal grooming (such as brushing teeth) 3 -MC Eating meals 3 -MC AM-PAC 6 Clicks Score (OT) 12 - Row Name 06/26/25 154 Functional Assessment Outcome Measure Options AM-PAC 6 Clicks Daily Activity (OT) - User Llanes (r) = Recorded By, (t) = Taken By, (c) = Cosigned By Initials Name Provider Type Crys Ferrari OT Occupational Therapist Occupational Therapy Education Title: PT OT ELASTIC YARN TWISTER HELPER Therapies (In Progress) Topic: Occupational Therapy (In [...] Name Provider Type Discipline 06/26/22 - Crys Ferrari OT Occupational Therapist [...] Row Name 06/26/25 1542 Time Calculation- OT OT Start Time 1434 - OT Received On 06/26/25 - OT Goal Re-Cert Due Date 07/06/25 - Timed Charges 23359 - OT Self Care/Mgmt Minutes 8 - Untimed Charges OT Eval/Re-eval Minutes 61 -MC Total Minutes Timed Charges Total Minutes 8 -MC Untimed Charges Total Minutes 61 -MC Total Minutes 69 -MC User Llanes (r) = Recorded By, (t) = Taken By, (c) = Cosigned By Initials Name Provider Type Crys Ferrari OT Occupational Therapist Therapy Charges for Today Code Description Service Date Service Provider Modifiers Qty [id number] OT SELF CARE/MGMT/TRAIN EA 15 MIN 06/26/2025 Crys Ferrari OT GO 1 [id number] HC-OT EVAL MOD COMPLEXITY 5 06/26/2025 Crys Ferrari [...] of migraine headaches 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 Left leg cellulitis [...] to norovirus * Case Management/Social Work - Click, Monalisa Vital RN - 06/26/2025 11:57 AM EDT Discharge Planning Assessment [facility] Patient Name: Trung Pool Today's Date: 06/26/2025 Admit Date: 06/25/2025 Plan: Home, [facility] Discharge Needs Assessment Row Name 06/26/25 1137 Living Environment People in Home alone Current Living Arrangements home Primary Care Provided by self Provides Primary Care For no one Family Caregiver if Needed sibling(s) Family Caregiver Names Zhane Salazar, sister [phone] Quality of Family Relationships helpful;involved;supportive Able to Return to Prior Arrangements yes Transition Planning Patient/Family Anticipates Transition to home with family;home with help/services Patient/Family Anticipated Services at Transition complex case 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 Also has a caregiver/aide that is there Wednesday and Wednesday for 3 hours. Needs assistance withADLs. States that he is current with [facility]. Has an advanced directive. Discharge Plan Row Name 06/26/25 1146 Plan Plan Home, [facility] Patient/Family in Agreement with Plan yes Plan Comments I spoke with Mr Pool at bedside. Mr [place]. He states that he can [...] He states that he is current with [facility]. He does have an advanced directive. His insurance is [employer], and he does have prescription coverage. His PCP is Gustavo Mehta, and he gets his prescriptions filled at [facility] [place]. At this time he denies any discharge [...] 06/02/2025 - Discharge disposition: Home- Health Care [facility] Provider Services Address Phone Fax Patient Preferred [place] [phone] -- Expected Discharge Date and Time Expected [...] AM EST POCT GLUCOSE FINGERSTICK Routine 025 7:42 PM EST POCT GLUCOSE FINGERSTICK Routine 4:46 PM EST POCT GLUCOSE FINGERSTICK Routine 12:09 PM EST POCT GLUCOSE FINGERSTICK Routine [...] 7:30 AM EST POCT GLUCOSE FINGERSTICK Routine 7:[address] HEAD WO CONTRAST STAT 07/28/2025 7 :28 PM EST POCT GLUCOSE FINGERSTICK Routine 025 4:56 PM EST POCT GLUCOSE FINGERSTICK Routine 025 3:53 PM EST POCT GLUCOSE FINGERSTICK Routine 11:49 AM EST POCT GLUCOSE FINGERSTICK Routine 11/15/2 025 7:24 AM EST POCT GLUCOSE FINGERSTICK Routine 8:51 PM EST POCT GLUCOSE FINGERSTICK Routine 4:43 PM EST POCT GLUCOSE FINGERSTICK Routine 12:51 PM EST POCT GLUCOSE FINGERSTICK Routine 7:27 AM EST POCT GLUCOSE FINGERSTICK Routine 7:58 PM EST POCT GLUCOSE FINGERSTICK Routine 5:10 PM EST POCT GLUCOSE FINGERSTICK Routine 7:34 AM EST POCT GLUCOSE FINGERSTICK Routine 9:06 PM EST POCT GLUCOSE FINGERSTICK Routine 11:32 AM EST POCT GLUCOSE FINGERSTICK Routine 7:26 AM EST BASIC METABOLIC PANEL Timed [...] 9:30 AM EDT POCT GLUCOSE FINGERSTICK Routine 11/01/2 025 7:33 AM EDT BLOOD GAS, VENOUS W/CO-OXIMETRY [...] 6:48 PM EDT POCT GLUCOSE FINGERSTICK Routine 025 4:33 PM EDT POCT GLUCOSE FINGERSTICK Routine 025 11:50 AM EDT OSCILLATING POSITIVE EXPIRATORY PRESSURE [...] 3:35 PM EDT POCT GLUCOSE FINGERSTICK Routine 11:56 AM EDT OSCILLATING POSITIVE EXPIRATORY PRESSURE (OPEP) Routine 07/12/2025 9:31 AM EDT POCT GLUCOSE FINGERSTICK Routine 7:31 AM EDT ECG 12-LEAD STAT 07/12/2025 6:30 AM EDT CBC (NO DIFF) Routine 07/12/2025 4:54 AM EDT MAGNESIUM Routine 07/12/2025 4:54 AM EDT BASIC METABOLIC PANEL Routine 07/12/2025 4:54 AM EDT SCANNED - TELEMETRY 07/11/2025 9 :50 PM EDT OSCILLATING POSITIVE EXPIRATORY PRESSURE (OPEP) Routine 07/11/2025 9:30 PM EDT POCT GLUCOSE FINGERSTICK Routine 025 9:09 PM EDT POCT GLUCOSE FINGERSTICK Routine [...] AM EDT POCT GLUCOSE FINGERSTICK Routine 025 7:27 AM EDT OSCILLATING POSITIVE EXPIRATORY PRESSURE [...] 2:18 PM EDT POCT GLUCOSE FINGERSTICK Routine 12:12 PM EDT OSCILLATING POSITIVE EXPIRATORY PRESSURE [...] PM EDT POCT GLUCOSE FINGERSTICK Routine 025 7:31 PM EDT POCT GLUCOSE FINGERSTICK Routine 025 5:19 PM EDT POCT GLUCOSE FINGERSTICK Routine 025 4:27 PM EDT POCT GLUCOSE FINGERSTICK Routine 10/24/2 025 3:26 PM EDT ECG 12-LEAD STAT 07/06/2025 [...] 9:30 PM EDT POCT GLUCOSE FINGERSTICK Routine 7:54 PM EDT POCT GLUCOSE FINGERSTICK Routine 4:45 PM EDT POCT GLUCOSE FINGERSTICK Routine 12:26 PM EDT OSCILLATING POSITIVE EXPIRATORY PRESSURE (OPEP) Routine 07/05/2025 9:31 AM EDT POCT GLUCOSE FINGERSTICK Routine 7:25 AM EDT BASIC METABOLIC PANEL Routine 07/05/2025 4:34 AM EDT OSCILLATING POSITIVE EXPIRATORY PRESSURE (OPEP) Routine 07/04/2025 9:30 PM EDT POCT GLUCOSE FINGERSTICK Routine 025 8:13 PM EDT POCT GLUCOSE FINGERSTICK Routine 4:46 PM EDT POCT GLUCOSE FINGERSTICK Routine [...] 9:30 PM EDT POCT GLUCOSE FINGERSTICK Routine 9:[address] HEAD WO CONTRAST STAT 07/03/2025 9 :00 PM EDT POCT GLUCOSE FINGERSTICK Routine 8:13 PM EDT BLOOD GAS, ARTERIAL W/CO-OXIMETRY Routine 07/03/2025 7:00 PM EDT POCT GLUCOSE FINGERSTICK Routine 5:21 PM EDT XR [place] OR PROCEDURE [...] :01 PM EDT POCT GLUCOSE FINGERSTICK Routine 4:23 PM EDT POCT GLUCOSE FINGERSTICK Routine [...] 9:30 AM EDT POCT GLUCOSE FINGERSTICK Routine 7:42 AM EDT CBC WITH AUTO DIFFERENTIAL Routine 06/30/2025 4:29 AM EDT CBC AND DIFFERENTIAL Routine 06/30/2025 4:29 AM EDT VANCOMYCIN, RANDOM Routine 06/30/2025 4: 29 AM EDT BASIC METABOLIC PANEL Routine 06/30/2025 4:29 AM EDT OSCILLATING POSITIVE EXPIRATORY PRESSURE (OPEP) Routine 06/29/2025 9:30 PM EDT POCT GLUCOSE FINGERSTICK Routine 8:06 PM EDT POCT GLUCOSE FINGERSTICK Routine 4:43 PM EDT POCT GLUCOSE FINGERSTICK Routine 11:56 AM EDT POCT GLUCOSE FINGERSTICK Routine 025 7:30 AM EDT BASIC METABOLIC PANEL Routine [...] 3:32 PM EDT POCT GLUCOSE FINGERSTICK Routine 025 11:10 AM EDT OSCILLATING POSITIVE EXPIRATORY PRESSURE (OPEP) Routine 06/27/2025 9:31 AM EDT POCT GLUCOSE FINGERSTICK Routine 025 7:19 AM EDT CBC WITH AUTO DIFFERENTIAL [...] 4:42 PM EDT POCT GLUCOSE FINGERSTICK Routine 025 11:45 AM EDT DUPLEX LOWER EXTREMITY ART/GRAFTS [...] PM EDT BLOOD CULTURE ID Routine 06/25/2025 8:3 0 PM EDT BLOOD CULTURE STAT 06/25/2025 8:30 [...] - 130 mg/dL 08/02/2025 8:00 AM EST [facility] Comment:Serial Number: [id number]: [id number] Blood 08/02/2025 7:46 AM EST 08/02/2025 8:00 AM EST CarolinaGenotype Diagnosticstton II, DO POINT OF CARE TEST ORDERA BLES Final Result Performing Organization Address [facility] Co de Phone Number [facility]
[address] [place] [address], * (ABNORMAL) POC Glucose Once (08/01/2025 8:09 PM EST) Glucose 139(H) 70 - 130 mg/dL 08/01/2025 8:11 PM EST [facility] Comment:Serial Number: [id number]: [id number] Blood 08/01/2025 8:09 PM EST 08/01/2025 8:11 PM EST [employer] Diagnosticstton II, DO POINT OF CARE TEST ORDERA BLES Final Result Performing Organization Address City/[facility]/ZIP Co de Phone Number [facility]
[address] [place] [address], * (ABNORMAL) POC Glucose Once (08/01/2025 4:55 PM EST) Glucose 190(H) 70 - 130 mg/dL 08/01/2025 4:58 PM EST [facility] Comment:Serial Number: [id number]: [id number] Blood 08/01/2025 4:55 PM EST 08/01/2025 4:58 PM EST Carolina Sargent II, DO POINT OF CARE TEST ORDERA BLES Final Result Performing Organization Address [facility]/ZIP Co de Phone Number [facility]
[address] [place] [address], * POC Glucose Once (08/01/2025 12:18 PM EST) Glucose 130 70 - 130 mg/dL 08/01/2025 12:21 PM EST [facility] Comment:Serial Number: [id number]: [id number] Blood 08/01/2025 12:1 8 PM EST 08/01/2025 12:21 PM EST Carolina Sargent II, DO POINT OF CARE TEST ORDERA BLES Final Result Performing Organization Address City/[facility]/ZIP Co de Phone Number [facility]
[address] [place] [address], * (ABNORMAL) POC Glucose Once (08/01/2025 7:30 AM EST) Glucose 134(H) 70 - 130 mg/dL 08/01/2025 7:32 AM EST [facility] Comment:Serial Number: [id number]: [id number] Blood 08/01/2025 7:30 AM EST 08/01/2025 7:32 AM EST Carolina Sargent II, DO POINT OF CARE TEST ORDERA BLES Final Result Performing Organization Address [facility] Co de Phone Number [facility]
[address] [place] [address], * (ABNORMAL) POC Glucose Once (07/31/2025 7:42 PM EST) Glucose 168(H) 70 - 130 mg/dL 07/31/2025 7:45 PM EST [facility] Comment:Serial Number: [id number]: [id number] Blood 07/31/2025 7:42 PM EST 07/31/2025 7:45 PM EST Carolina Villarrealtton II, DO POINT OF CARE TEST ORDERA BLES Final Result Performing Organization Address [facility] Co de Phone Number [facility]
[address] [place] [address], * (ABNORMAL) POC Glucose Once (07/31/2025 4:46 PM EST) Glucose 156(H) 70 - 130 mg/dL 07/31/2025 4:48 PM EST [facility] Comment:Serial Number: [id number]: [id number] Blood 07/31/2025 4:46 PM EST 07/31/2025 4:48 PM EST Carolina Sargent II, DO POINT OF CARE TEST ORDERA BLES Final Result Performing Organization Address [facility] Co de Phone Number [facility]
[address] [place] [address], * (ABNORMAL) POC Glucose Once (07/31/2025 12:09 PM EST) Glucose 140(H) 70 - 130 mg/dL 07/31/2025 12:17 PM EST [facility] Comment:Serial Number: [id number]: [id number] Blood 07/31/2025 12:0 9 PM EST 07/31/2025 12:17 PM EST Carolina Sargent II, DO POINT OF CARE TEST ORDERA BLES Final Result Performing Organization Address City/[facility]/ZIP Co de Phone Number [facility]
[address] [place] [address], * POC Glucose Once (07/31/2025 7:24 AM EST) Glucose 116 70 - 130 mg/dL 07/31/2025 7:26 AM EST [facility] Comment:Serial Number: [id number]: [id number] Blood 07/31/2025 7:24 AM EST 07/31/2025 7:26 AM EST Carolina Sargent II, DO POINT OF CARE TEST ORDERA BLES Final Result Performing Organization Address [facility]/ZIP Co de Phone Number [facility]
[address] [place] [address], * (ABNORMAL) POC Glucose Once (07/30/2025 8:17 PM EST) Glucose 199(H) 70 - 130 mg/dL 07/30/2025 8:19 PM EST [facility] Comment:Serial Number: [id number]: [id number] Blood 07/30/2025 8:17 PM EST 07/30/2025 8:19 PM EST Carolina Sargent II, DO POINT OF CARE TEST ORDERA BLES Final Result Performing Organization Address City/[facility]/ZIP Co de Phone Number [facility]
[address] [place] [address], * (ABNORMAL) POC Glucose Once (07/30/2025 4:32 PM EST) Glucose 134(H) 70 - 130 mg/dL 07/30/2025 4:35 PM EST [facility] Comment:Serial Number: [id number]: [id number] Blood 07/30/2025 4:32 PM EST 07/30/2025 4:35 PM EST Carolinalatoya Villarrealtton II, DO POINT OF CARE TEST ORDERA BLES Final Result Performing Organization Address [facility] de Phone Number [facility]
[address] [place] [address], * (ABNORMAL) POC Glucose Once (07/30/2025 11:33 AM EST) Glucose 145(H) 70 - 130 mg/dL 07/30/2025 11:37 AM EST [facility] Comment:Serial Number: [id number]: [id number] Blood 07/30/2025 11:3 3 AM EST 07/30/2025 11:37 AM EST Carolina M Arie II, DO POINT OF CARE TEST ORDERA BLES Final Result Performing Organization Address [facility] de Phone Number [facility]
[address] [place] [address], * (ABNORMAL) POC Glucose Once (07/30/2025 7:26 AM EST) Glucose 140(H) 70 - 130 mg/dL 07/30/2025 7:29 AM EST [facility] Comment:Serial Number: [id number]: [id number] Blood 07/30/2025 7:26 AM EST 07/30/2025 7:29 AM EST Carolinalatoya Villarrealtton II, DO POINT OF CARE TEST ORDERA BLES Final Result Performing Organization Address [facility] de Phone Number [facility]
[address] [place] [address], * POC Glucose Once (07/29/2025 8:52 PM EST) Glucose 121 70 - 130 mg/dL 07/29/2025 8:54 PM EST [facility] Comment:Serial Number: [id number]: [id number] Blood 07/29/2025 8:52 PM EST 07/29/2025 8:54 PM EST us Mart Ridley MD POINT OF CARE TEST ORDERABLES Final Result Performing Organization Address [facility] de Phone Number [facility]
[address] [place] [address], * (ABNORMAL) POC Glucose Once (07/29/2025 4:49 PM EST) Glucose 158(H) 70 - 130 mg/dL 07/29/2025 4:51 PM EST [facility] Comment:Serial Number: [id number]: [id number] Blood 07/29/2025 4:49 PM EST 07/29/2025 4:51 PM EST us Mart Ridley MD POINT OF CARE TEST ORDERABLES Final Result Performing Organization Address [facility] de Phone Number [facility]
[address] [place] [address], * (ABNORMAL) POC Glucose Once (07/29/2025 11:30 AM EST) Glucose 148(H) 70 - 130 mg/dL 07/29/2025 11:33 AM EST [facility] Comment:Serial Number: [id number]: [id number] Blood 07/29/2025 11:3 0 AM EST 07/29/2025 11:33 AM EST us Mart Ridley MD POINT OF CARE TEST ORDERABLES Final Result Performing Organization Address [facility] Co de Phone Number [facility]
[address] [place] [address], [place] [phone] * (ABNORMAL) POC Glucose Once (07/29/2025 7:30 AM EST) Glucose 168(H) 70 - 130 mg/dL 07/29/2025 7:32 AM EST [facility] Comment:Serial Number: [id number]: [id number] Blood 07/29/2025 7:30 AM EST 07/29/2025 7:32 AM EST us Mart Ridley MD POINT OF CARE TEST ORDERABLES Final Result Performing Organization Address [facility] Co de Phone Number [facility]
[address] [place] [address], [place] [phone] * (ABNORMAL) POC Glucose Once (07/28/2025 7:49 PM EST) Glucose 139(H) 70 - 130 mg/dL 07/28/2025 7:51 PM EST [facility] Comment:Serial Number: [id number]: [id number] Blood 07/28/2025 7:49 PM EST 07/28/2025 7:51 PM EST us Mart Ridley MD POINT OF CARE TEST ORDERABLES Final Result Performing Organization Address [facility] Co de Phone Number [facility]
[address] [place] [address], * CT Head Without Contrast (07/28/2025 7:28 PM EST) Anatomical Region Laterality Modality Head N/A Computed Tomogra phy 07/28/2025 7:42 PM EST Impressions 07/28/2025 7:43 PM EST Impression: No acute intracranial pathology. Electronically Signed: Feliciano Garcia MD 07/28/2025 7:43 PM EST Workstation ID: [id number] Narrative 07/28/2025 7:[address] HEAD WO [...] MD 07/28/2025 7:43 PM EST Workstation ID: [id number] Chinyere L Ayden [employer] ESTIMATOR IMG CT ORDERABLES Final Res ult * (ABNORMAL) POC Glucose Once (07/28/2025 4:56 PM EST) Glucose 224(H) 70 - 130 mg/dL 07/28/2025 4:58 PM EST [facility] Comment:Serial Number: [id number]: [id number] Blood 07/28/2025 4:56 PM EST 07/28/2025 4:58 PM EST us Mart Ridley MD POINT OF CARE TEST ORDERABLES Final Result Performing Organization Address [facility] Co de Phone Number [facility]
[address] [place] [address], * (ABNORMAL) POC Glucose Once (07/28/2025 3:53 PM EST) Glucose 197(H) 70 - 130 mg/dL 07/28/2025 3:56 PM EST [facility] Comment:Serial Number: [id number]: [id number] Blood 07/28/2025 3:53 PM EST 07/28/2025 3:56 PM EST us Mart Ridley MD POINT OF CARE TEST ORDERABLES Final Result Performing Organization Address [facility] Co de Phone Number [facility]
[address] [place] [address], * (ABNORMAL) POC Glucose Once (07/28/2025 11:49 AM EST) Glucose 138(H) 70 - 130 mg/dL 07/28/2025 11:51 AM EST [facility] Comment:Serial Number: [id number]: [id number] Blood 07/28/2025 11:4 9 AM EST 07/28/2025 11:51 AM EST us Mart Ridley MD POINT OF CARE TEST ORDERABLES Final Result Performing Organization Address [facility] de Phone Number [facility]
[address] [place] [address], * POC Glucose Once (07/28/2025 7:24 AM EST) Glucose 120 70 - 130 mg/dL 07/28/2025 7:26 AM EST [facility] Comment:Serial Number: [id number]: [id number] Blood 07/28/2025 7:24 AM EST 07/28/2025 7:26 AM EST us Mart Ridley MD POINT OF CARE TEST ORDERABLES Final Result Performing Organization Address [facility] de Phone Number [facility]
[address] [place] [address], * (ABNORMAL) POC Glucose Once (07/27/2025 8:51 PM EST) Glucose 173(H) 70 - 130 mg/dL 07/27/2025 8:56 PM EST [facility] Comment:Serial Number: [id number]: [id number] Blood 07/27/2025 8:51 PM EST 07/27/2025 8:56 PM EST us Mart Ridley MD POINT OF CARE TEST ORDERABLES Final Result Performing Organization Address [facility] de Phone Number [facility]
[address] [place] [address], [place] [phone] * (ABNORMAL) POC Glucose Once (07/27/2025 4:43 PM EST) Glucose 190(H) 70 - 130 mg/dL 07/27/2025 4:45 PM EST [facility] Comment:Serial Number: [id number]: [id number] Blood 07/27/2025 4:43 PM EST 07/27/2025 4:45 PM EST us Mart Ridley MD POINT OF CARE TEST ORDERABLES Final Result Performing Organization Address [facility] Co ga Phone Number [facility]
[address] [place] [address], * (ABNORMAL) POC Glucose Once (07/27/2025 12:51 PM EST) Glucose 145(H) 70 - 130 mg/dL 07/27/2025 12:53 PM EST [facility] Comment:Serial Number: [id number]: [id number] Blood 07/27/2025 12:5 1 PM EST 07/27/2025 12:53 PM EST us Mart Ridley MD POINT OF CARE TEST ORDERABLES Final Result Performing Organization Address [facility] Phone Number [facility]
[address] [place] [address], [place] [phone] * (ABNORMAL) POC Glucose Once (07/27/2025 7:27 AM EST) Glucose 137(H) 70 - 130 mg/dL 07/27/2025 7:29 AM EST [facility] Comment:Serial Number: [id number]: [id number] Blood 07/27/2025 7:27 AM EST 07/27/2025 7:29 AM EST us Mart Ridley MD POINT OF CARE TEST ORDERABLES Final Result Performing Organization Address City/[facility]/ZIP Co de Phone Number [facility]
[address] [place] [address], * (ABNORMAL) POC Glucose Once (07/26/2025 7:58 PM EST) Glucose 235(H) 70 - 130 mg/dL 07/26/2025 8:01 PM EST [facility] Comment:Serial Number: [id number]: [id number] Blood 07/26/2025 7:58 PM EST 07/26/2025 8:01 PM EST us Mart Ridley MD POINT OF CARE TEST ORDERABLES Final Result Performing Organization Address [facility]/ZIP Co de Phone Number [facility]
[address] [place] [address], * POC Glucose Once (07/26/2025 5:10 PM EST) Glucose 127 70 - 130 mg/dL 07/26/2025 5:13 PM EST [facility] Comment:Serial Number: [id number]: [id number] Blood 07/26/2025 5:10 PM EST 07/26/2025 5:13 PM EST us Mart Ridley MD POINT OF CARE TEST ORDERABLES Final Result Performing Organization Address [facility] Co de Phone Number [facility]
[address] [place] [address], * POC Glucose Once (07/26/2025 7:34 AM EST) Glucose 130 70 - 130 mg/dL 07/26/2025 7:37 AM EST [facility] Comment:Serial Number: [id number]: [id number] Blood 07/26/2025 7:34 AM EST 07/26/2025 7:37 AM EST us Mart Ridley MD POINT OF CARE TEST ORDERABLES Final Result [facility]
[address] [place] [address], * (ABNORMAL) POC Glucose Once (07/25/2025 9:06 PM EST) Glucose 163(H) 70 - 130 mg/dL 07/25/2025 9:08 PM EST [facility] Comment:Serial Number: [id number]: [id number] Blood 07/25/2025 9:06 PM EST 07/25/2025 9:08 PM EST us Mart Ridley MD POINT OF CARE TEST ORDERABLES Final Result Performing Organization Address [facility] de Phone Number [facility]
[address] [place] [address], * POC Glucose Once (07/25/2025 11:32 AM EST) Glucose 79 70 - 130 mg/dL 07/25/2025 11:34 AM EST [facility] Comment:Serial Number: [id number]: [id number] Blood 07/25/2025 11:3 2 AM EST 07/25/2025 11:34 AM EST us Mart Ridley MD POINT OF CARE TEST ORDERABLES Final Result Performing Organization Address [facility] de Phone Number [facility]
[address] [place] [address], * POC Glucose Once (07/25/2025 7:26 AM EST) Glucose 86 70 - 130 mg/dL 07/25/2025 7:28 AM EST [facility] Comment:Serial Number: [id number]: [id number] Blood 07/25/2025 7:26 AM EST 07/25/2025 7:28 AM EST Mart Ridley MD POINT OF CARE TEST ORDERABLES Final Result [facility]
[address] [place] [address], * (ABNORMAL) Basic Metabolic Panel (07/25/2025 6:17 AM EST) Glucose 89 65 - 99 mg/dL 07/25/2025 7:02 AM [facility] BUN 27.2(H) 8.0 - 23.0 mg/dL 07/25/2025 7:02 AM [facility] Creatinine 1.02 0.76 - 1.27 mg/dL 07/25/2025 7:02 AM [facility] Sodium 140 136 - 145 mmol/L 07/25/2025 7:02 AM [facility] Potassium 5.2 3.5 - 5.2 mmol/L 07/25/2025 7:02 AM [facility] Chloride 109(H) 98 - 107 mmol/L 07/25/2025 7:02 AM [facility] CO2 20.4(L) 22.0 - 29.0 mmol/L 07/25/2025 7:02 AM [facility] Calcium 9.1 8.6 - 10.5 mg/dL 07/25/2025 7:02 AM [facility] BUN/Creatinine Ratio 26.7(H) 7.0 - 25.0 07/25/2025 7:02 AM [facility] Anion Gap 10.6 5.0 - 15.0 mmol/L 07/25/2025 7:02 AM [facility] eGFR 78.6 >60.0 mL/min/1.7 3 07/25/2025 7:02 AM [facility] Blood Venipuncture / Unknown 07/25/2025 6:17 AM EST 07/25/2025 6:26 AM EST Narrative [facility] - 07/25/2025 7:02 AM EST GFR [...] include race as a factor Osmany Mccann [facility] BLOOD ORDERABLES Final Result [facility]
[address] [place] [address], * POC Glucose Once (07/25/2025 1:25 AM EST) Glucose 112 70 - 130 mg/dL 07/25/2025 1:28 AM EST [facility] Comment:Serial Number: [id number]: [id number] Blood 07/25/2025 1:25 AM EST 07/25/2025 1:28 AM EST Ana Reynolds DO POINT OF CARE TEST ORDERABLE S Final Result [facility]
[address] [place] [address], * POC Glucose Once (07/24/2025 5:43 PM EST) Glucose 104 70 - 130 mg/dL 07/24/2025 5:45 PM EST [facility] Comment:Serial Number: [id number]: [id number] Blood 07/24/2025 5:43 PM EST 07/24/2025 5:45 PM EST us Ana Reynolds DO POINT OF CARE TEST ORDERABLE S Final Result Performing Organization Address City/[facility]/ZIP Co de Phone Number [facility]
[address] [place] [address], * POC Glucose Once (07/24/2025 12:18 PM EST) Glucose 101 70 - 130 mg/dL 07/24/2025 12:19 PM EST [facility] Comment:Serial Number: [id number]: [id number] Blood 07/24/2025 12:1 8 PM EST 07/24/2025 12:19 PM EST Ana Reynolds DO POINT OF CARE TEST ORDERABLE S Final Result Performing Organization Address [facility] Co de Phone Number [facility]
[address] [place] [address], * ECG 12 Lead Other; hyperkalemia (07/24/2025 [...] ORDERABLES Final Result Performing Organization Address City/[facility]/ZIP Co de Phone Number ECG * POC Glucose Once (07/24/2025 7:49 AM EST) Glucose 105 70 - 130 mg/dL 07/24/2025 7:51 AM EST [facility] Comment:Serial Number: [id number]: [id number] Blood 07/24/2025 7:49 AM EST 07/24/2025 7:51 AM EST Ana Reynolds DO POINT OF CARE TEST ORDERABLE S Final Result [facility] [place] [address], * (ABNORMAL) Basic Metabolic Panel (07/24/2025 4:03 AM EST) Glucose 115(H) 65 - 99 mg/dL 07/24/2025 5:53 AM EST [facility] BUN 29.3(H) 8.0 - 23.0 mg/dL 07/24/2025 5:53 AM EST [facility] Creatinine 1.35(H) 0.76 - 1.27 mg/dL 07/24/2025 5:53 AM EST [facility] Sodium 138 136 - 145 mmol/L 07/24/2025 5:53 AM EST [facility] Potassium 6.3(HH) 3.5 - 5.2 mmol/L 07/24/2025 5:53 AM EST [facility] Chloride 107 98 - 107 mmol/L 07/24/2025 5:53 AM EST [facility] CO2 22.2 22.0 - 29.0 mmol/L 07/24/2025 5:53 AM EST [facility] Calcium 8.8 8.6 - 10.5 mg/dL 07/24/2025 5:53 AM EST [facility] BUN/Creatinine Ratio 21.7 7.0 - 25.0 07/24/2025 5:53 AM EST [facility] Anion Gap 8.8 5.0 - 15.0 mmol/L 07/24/2025 5:53 AM EST [facility] eGFR 56.1(L) >60.0 mL/min/1.7 3 07/24/2025 5:53 AM EST [facility] Blood Venipuncture / Unknown 07/24/2025 4:03 AM EST 07/24/2025 4:56 AM EST Narrative [facility] - 07/24/2025 5:53 AM EST GFR [...] DO LAB BLOOD ORDERABLES Final R esult [facility]
[address] [id number], * (ABNORMAL) POC Glucose Once (07/23/2025 8:28 PM EST) Glucose 197(H) 70 - 130 mg/dL 07/23/2025 8:30 PM EST [facility] Comment:Serial Number: [id number]: [id number] Blood 07/23/2025 8:28 PM EST 07/23/2025 8:30 PM EST Ana Reynolds DO POINT OF CARE TEST ORDERABLE S Final Result [facility]
[address] [place] [address], * (ABNORMAL) POC Glucose Once (07/23/2025 5:22 PM EST) Glucose 133(H) 70 - 130 mg/dL 07/23/2025 5:25 PM EST [facility] Comment:Serial Number: [id number]: [id number] Blood 07/23/2025 5:22 PM EST 07/23/2025 5:25 PM EST Ana Reynolds DO POINT OF CARE TEST ORDERABLE S Final Result Performing Organization Address City/[facility]/ZIP Co de Phone Number [facility]
[address] [place] [address], * POC Glucose Once (07/23/2025 11:43 AM EST) Glucose 99 70 - 130 mg/dL 07/23/2025 11:45 AM EST [facility] Comment:Serial Number: [id number]: [id number] Blood 07/23/2025 11:4 3 AM EST 07/23/2025 11:45 AM EST Ana Reynolds DO POINT OF CARE TEST ORDERABLE S Final Result [facility]
[address] [place] [address], * POC Glucose Once (07/23/2025 8:13 AM EST) Pathologist [facility] Glucose 98 70 - 130 mg/dL 07/23/2025 8:15 AM EST [facility] Comment:Serial Number: [id number]: [id number] Blood 07/23/2025 8:13 AM EST 07/23/2025 8:15 AM EST Ana Reynolds DO POINT OF CARE TEST ORDERABLE S Final Result [facility]
[address] [place] [address], * (ABNORMAL) Basic Metabolic Panel (07/23/2025 4:42 AM EST) [facility] Glucose 104(H) 65 - 99 mg/dL 07/23/2025 5:37 AM EST [facility] BUN 20.3 8.0 - 23.0 mg/dL 07/23/2025 5:37 AM [facility] Creatinine 0.94 0.76 - 1.27 mg/dL 07/23/2025 5:37 AM [facility] Sodium 137 136 - 145 mmol/L 07/23/2025 5:37 AM [facility] Potassium 5.8(H) 3.5 - 5.2 mmol/L 07/23/2025 5:37 AM [facility] Chloride 105 98 - 107 mmol/L 07/23/2025 5:37 AM [facility] CO2 21.8(L) 22.0 - 29.0 mmol/L 07/23/2025 5:37 AM [facility] Calcium 9.3 8.6 - 10.5 mg/dL 07/23/2025 5:37 AM [facility] BUN/Creatinine Ratio 21.6 7.0 - 25.0 07/23/2025 5:37 AM [facility] Anion Gap 10.2 5.0 - 15.0 mmol/L 07/23/2025 5:37 AM EST [facility] eGFR 86.7 >60.0 mL/min/1.7 3 07/23/2025 5:37 AM EST [facility] Blood Venipuncture / Unknown 07/23/2025 4:42 AM EST 07/23/2025 5:03 AM EST [facility] - 07/23/2025 5:37 AM EST [...] include race as a factor Jessie Hernandez [facility] LAB BLOOD ORDERABLES Final Result [facility]
[address] [place] [address], * Vancomycin, Random (07/23/2025 4:42 AM EST) Vancomycin Random 11.20 5.00 - 40.00 mcg/mL 07/23/2025 5:37 AM EST [facility] Blood Venipuncture / Unknown 07/23/2025 4:42 AM EST 07/23/2025 5:03 AM EST [facility] - 07/23/2025 5:37 AM EST Therapeutic Ranges for Vancomycin Vancomycin Random 5.0-40.0 mcg/mL Vancomycin Trough 5.0-20.0 mcg/mL Vancomycin Peak 20.0-40.0 mcg/mL Leonie Esquivel [facility] LAB BLOOD ORDERABLES Final Re sult Performing Organization Address [facility] de Phone Number [facility]
[address] [place] [address], * POC Glucose Once (07/22/2025 7:48 PM EST) Glucose 122 70 - 130 mg/dL 07/22/2025 7:50 PM EST [facility] Comment:Serial Number: [id number]: [id number] Blood 07/22/2025 7:48 PM EST 07/22/2025 7:50 PM EST Ana Reynolds DO POINT OF CARE TEST ORDERABLE S Final Result Performing Organization Address [facility] de Phone Number [facility]
[address] [place] [address], * POC Glucose Once (07/22/2025 7:53 AM EST) Glucose 118 70 - 130 mg/dL 07/22/2025 7:55 AM EST [facility] Comment:Serial Number: [id number]: [id number] Blood 07/22/2025 7:53 AM EST 07/22/2025 7:55 AM EST Ana Reynolds DO POINT OF CARE TEST ORDERABLE S Final Result Performing Organization Address [facility] Co de Phone Number [facility]
[address] [place] [address], * POC Glucose Once (07/21/2025 11:43 AM EST) Glucose 110 70 - 130 mg/dL 07/21/2025 11:45 AM EST [facility] Comment:Serial Number: [id number]: [id number] Blood 07/21/2025 11:4 3 AM EST 07/21/2025 11:45 AM EST Ana R Gail DO POINT OF CARE TEST ORDERABLE S Final Result Performing Organization Address City/[facility]/ZIP Co de Phone Number [facility]
[address] [place] [address], * POC Glucose Once (07/21/2025 7:38 AM EST) Glucose 119 70 - 130 mg/dL 07/21/2025 7:41 AM EST [facility] Comment:Serial Number: [id number]: [id number] Blood 07/21/2025 7:38 AM EST 07/21/2025 7:41 AM EST Ana Travis Reynolds DO POINT OF CARE TEST ORDERABLE S Final Result Performing Organization Address [facility] Co de Phone Number [facility]
[address] [place] [address], * POC Glucose Once (07/20/2025 4:45 PM EST) Glucose 124 70 - 130 mg/dL 07/20/2025 4:47 PM EST [facility] Comment:Serial Number: [id number]: [id number] Blood 07/20/2025 4:45 PM EST 07/20/2025 4:47 PM EST Ana Reynolds POINT OF CARE TEST ORDERABLE S Final Result Performing Organization Address [facility] Co de Phone Number [facility]
[address] [place] [address], * (ABNORMAL) POC Glucose Once (07/20/2025 12:04 PM EST) Glucose 139(H) 70 - 130 mg/dL 07/20/2025 12:06 PM EST [facility] Comment:Serial Number: [id number]: [id number] Blood 07/20/2025 12:0 4 PM EST 07/20/2025 12:06 PM [facility] ORDERABLE S Final Result Performing Organization Address City/[facility]/ZIP Co de Phone Number [facility]
[address] [place] [address], * POC Glucose Once (07/20/2025 7:50 AM EST) Glucose 86 70 - 130 mg/dL 07/20/2025 7:52 AM [facility] Comment:Serial Number: [id number]: [id number] Blood 07/20/2025 7:50 AM EST 07/20/2025 7:52 AM EST [facility] POINT OF CARE TEST ORDERABLE S Final Result Performing Organization Address City/[facility] Co de Phone Number [facility]
[address] [place] [address], * (ABNORMAL) CBC (No Diff) (07/20/2025 5:08 AM EST) WBC 6.74 3.40 - 10.80 10*3/mm3 07/20/2025 6:17 AM EST [facility] RBC 3.87(L) 4.14 - 5.80 10*6/mm3 07/20/2025 6:17 AM [facility] Hemoglobin 9.6(L) 13.0 - 17.7 g/dL 07/20/2025 6:17 AM [facility] Hematocrit 30.3(L) 37.5 - 51.0 % 07/20/2025 6:17 AM [facility] MCV 78.3(L) 79.0 - 97.0 fL 07/20/2025 6:17 AM [facility] MCH 24.8(L) 26.6 - 33.0 pg 07/20/2025 6:17 AM EST [facility] MCHC 31.7 31.5 - 35.7 g/dL 07/20/2025 6:17 AM EST [facility] RDW 18.4(H) 12.3 - 15.4 % 07/20/2025 6:17 AM [facility] RDW-SD 51.9 37.0 - 54.0 fl 07/20/2025 6:17 AM [facility] MPV 9.5 6.0 - 12.0 fL 07/20/2025 6:17 AM [facility] Platelets 228 140 - 450 10*3/mm3 07/20/2025 6:17 AM [facility] Blood Venipuncture / Unknown 07/20/2025 5:08 AM EST 07/20/2025 6:10 AM EST Law Castro PharmD LAB BLOOD ORDERABLES Final Re sult [facility]
[address] [place] [address], * (ABNORMAL) Basic Metabolic Panel (07/20/2025 5:08 AM EST) Glucose 90 65 - 99 mg/dL 07/20/2025 6:35 AM [facility] BUN 22.6 8.0 - 23.0 mg/dL 07/20/2025 6:35 AM [facility] Creatinine 0.81 0.76 - 1.27 mg/dL 07/20/2025 6:35 AM EST [facility] Sodium 136 136 - 145 mmol/L 07/20/2025 6:35 AM [facility] Potassium 5.0 3.5 - 5.2 mmol/L 07/20/2025 6:35 AM EST [facility] Chloride 107 98 - 107 mmol/L 07/20/2025 6:35 AM EST [facility] CO2 19.5(L) 22.0 - 29.0 mmol/L 07/20/2025 6:35 AM EST [facility] Calcium 8.7 8.6 - 10.5 mg/dL 07/20/2025 6:35 AM EST [facility] BUN/Creatinine Ratio 27.9(H) 7.0 - 25.0 07/20/2025 6:35 AM EST [facility] Anion Gap 9.5 5.0 - 15.0 mmol/L 07/20/2025 6:35 AM [facility] eGFR 94.3 >60.0 mL/min/1.7 3 07/20/2025 6:35 AM [facility] Blood Venipuncture / Unknown 07/20/2025 5:08 AM EST 07/20/2025 5:55 AM EST [facility] - 07/20/2025 6:35 AM EST [...] not include race as a factor Law Castro PharmD LAB BLOOD ORDERABLES Final Re sult [facility]
[address] [place] [address], * POC Glucose Once (07/19/2025 4:21 PM EST) Glucose 111 70 - 130 mg/dL 07/19/2025 4:26 PM EST [facility] Comment:Serial Number: [id number]: [id number] Blood 07/19/2025 4:21 PM EST 07/19/2025 4:26 PM EST Gigi Alcantara MD POINT OF CARE TEST ORDERABLE S Final Result Performing Organization Address [facility] Co de Phone Number [facility]
[address] [place] [address], * (ABNORMAL) POC Glucose Once (07/19/2025 11:30 AM EST) Glucose 132(H) 70 - 130 mg/dL 07/19/2025 11:33 AM EST [facility] Comment:Serial Number: [id number]: [id number] Blood 07/19/2025 11:3 0 AM EST 07/19/2025 11:33 AM EST Gigi Alcantara MD POINT OF CARE TEST ORDERABLE S Final Result Performing Organization Address [facility] de Phone Number [facility]
[address] [place] [address], * Magnesium (07/19/2025 8:35 AM EST) Magnesium 1.9 1.6 - 2.4 mg/dL 07/19/2025 9:02 AM EST [facility] Blood Venipuncture / Unknown 07/19/2025 8:35 AM EST 07/19/2025 8:43 AM EST Gigi Alcantara MD LAB BLOOD ORDERABLES Final R esult Performing Organization Address City/[facility] Co de Phone Number [facility]
[address] [place] [address], * POC Glucose Once (07/19/2025 7:32 AM EST) Glucose 103 70 - 130 mg/dL 07/19/2025 7:34 AM EST [facility] Comment:Serial Number: [id number]: [id number] Blood 07/19/2025 7:32 AM EST 07/19/2025 7:34 AM EST Gigi Alcantara MD POINT OF CARE TEST ORDERABLE S Final Result Performing Organization Address City/[facility]/ZIP Co de Phone Number [facility]
[address] [place] [address], * (ABNORMAL) POC Glucose Once (07/18/2025 7:29 PM EST) Glucose 141(H) 70 - 130 mg/dL 07/18/2025 7:31 PM EST [facility] Comment:Serial Number: [id number]: [id number] Blood 07/18/2025 7:29 PM EST 07/18/2025 7:31 PM EST Gigi Alcantara MD POINT OF CARE TEST ORDERABLE S Final Result Performing Organization Address [facility] Co de Phone Number [facility]
[address] [place] [address], * POC Glucose Once (07/18/2025 4:34 PM EST) Glucose 123 70 - 130 mg/dL 07/18/2025 4:37 PM EST [facility] Comment:Serial Number: [id number]: [id number] Blood 07/18/2025 4:34 PM EST 07/18/2025 4:37 PM EST Gigi Alcantara MD POINT OF CARE TEST ORDERABLE S Final Result Performing Organization Address City/[facility]/ZIP Co de Phone Number [facility]
[address] [place] [address], * POC Glucose Once (07/18/2025 11:11 AM EST) Glucose 125 70 - 130 mg/dL 07/18/2025 11:16 AM EST [facility] Comment:Serial Number: [id number]: [id number] Blood 07/18/2025 11:1 1 AM EST 07/18/2025 11:16 AM EST Gigi Alcantara MD POINT OF CARE TEST ORDERABLE S Final Result Performing Organization Address City/[facility]/ZIP Co de Phone Number [facility]
[address] [place] [address], * Magnesium (07/18/2025 3:37 AM EST) Magnesium 2.1 1.6 - 2.4 mg/dL 07/18/2025 4:37 AM EST [facility] Blood Venipuncture / Unknown 07/18/2025 3:37 AM EST 07/18/2025 4:06 AM EST Gigi Alcantara MD LAB BLOOD ORDERABLES Final R esult Performing Organization Address City/[facility]/ZIP Co de Phone Number [facility]
[address] [place] [address], * (ABNORMAL) Basic Metabolic Panel (07/18/2025 3:37 AM EST) Glucose 148(H) 65 - 99 mg/dL 07/18/2025 4:37 AM EST [facility] BUN 22.5 8.0 - 23.0 mg/dL 07/18/2025 4:37 AM EST [facility] Creatinine 0.82 0.76 - 1.27 mg/dL 07/18/2025 4:37 AM EST [facility] Sodium 137 136 - 145 mmol/L 07/18/2025 4:37 AM EST [facility] Potassium 5.2 3.5 - 5.2 mmol/L 07/18/2025 4:37 AM EST [facility] Chloride 108(H) 98 - 107 mmol/L 07/18/2025 4:37 AM EST [facility] CO2 21.4(L) 22.0 - 29.0 mmol/L 07/18/2025 4:37 AM EST [facility] Calcium 8.6 8.6 - 10.5 mg/dL 07/18/2025 4:37 AM EST [facility] BUN/Creatinine Ratio 27.4(H) 7.0 - 25.0 07/18/2025 4:37 AM EST [facility] Anion Gap 7.6 5.0 - 15.0 mmol/L 07/18/2025 4:37 AM [facility] eGFR 93.9 >60.0 mL/min/1.7 3 07/18/2025 4:37 AM [facility] Blood Venipuncture / Unknown 07/18/2025 3:37 AM EST 07/18/2025 4:06 AM EST [facility] - 07/18/2025 4:37 AM EST [...] not include race as a factor us Mere Armas PA-C LAB BLOOD ORDERABLES F inal Result [facility]
[address] [place] [address], * Vancomycin, Random (07/18/2025 3:37 AM EST) Vancomycin Random 19.20 5.00 - 40.00 mcg/mL 07/18/2025 4:37 AM EST [facility] Blood Venipuncture / Unknown 07/18/2025 3:37 AM EST 07/18/2025 4:06 AM EST Narrative [facility] - 07/18/2025 4:37 AM EST Therapeutic Ranges for Vancomycin Vancomycin Random 5.0-40.0 mcg/mL Vancomycin Trough 5.0-20.0 mcg/mL Vancomycin Peak 20.0-40.0 mcg/mL Osmany Mccann [facility] LAB BLOOD ORDERABLES Final Result Performing Organization Address City/[facility]/ZIP Co de Phone Number [facility]
[address] [place] [address], * (ABNORMAL) POC Glucose Once (07/17/2025 9:15 PM EST) Glucose 148(H) 70 - 130 mg/dL 07/17/2025 9:18 PM EST [facility] Comment:Serial Number: [id number]: [id number] Blood 07/17/2025 9:15 PM EST 07/17/2025 9:18 PM EST Gigi Alcantara MD POINT OF CARE TEST ORDERABLE S Final Result [facility]
[address] [place] [address], * (ABNORMAL) POC Glucose Once (07/17/2025 4:13 PM EST) Glucose 139(H) 70 - 130 mg/dL 07/17/2025 4:15 PM EST [facility] Comment:Serial Number: [id number]: [id number] Blood 07/17/2025 4:13 PM EST 07/17/2025 4:15 PM EST Gigi Alcantara MD POINT OF CARE TEST ORDERABLE S Final Result Performing Organization Address [facility] de Phone Number [facility]
[address] [place] [address], * (ABNORMAL) POC Glucose Once (07/17/2025 12:31 PM EST) Glucose 156(H) 70 - 130 mg/dL 07/17/2025 12:34 PM EST [facility] Comment:Serial Number: [id number]: [id number] Blood 07/17/2025 12:3 1 PM EST 07/17/2025 12:34 PM EST Gigi Alcantara MD POINT OF CARE TEST ORDERABLE S Final Result Performing Organization Address [facility] de Phone Number [facility]
[address] [place] [address], * (ABNORMAL) POC Glucose Once (07/17/2025 7:53 AM EST) Glucose 147(H) 70 - 130 mg/dL 07/17/2025 7:56 AM EST [facility] Comment:Serial Number: [id number]: [id number] Blood 07/17/2025 7:53 AM EST 07/17/2025 7:56 AM EST Gigi Alcantara MD POINT OF CARE TEST ORDERABLE S Final Result Performing Organization Address [facility] Co de Phone Number [facility]
[address] [place] [address], * (ABNORMAL) CBC (No Diff) (07/17/2025 5:48 AM EST) WBC 7.10 3.40 - 10.80 10*3/mm3 07/17/2025 6:36 AM EST [facility] RBC 3.93(L) 4.14 - 5.80 10*6/mm3 07/17/2025 6:36 AM EST [facility] Hemoglobin 9.3(L) 13.0 - 17.7 g/dL 07/17/2025 6:36 AM EST [facility] Hematocrit 31.1(L) 37.5 - 51.0 % 07/17/2025 6:36 AM EST [facility] MCV 79.1 79.0 - 97.0 fL 07/17/2025 6:36 AM EST [facility] MCH 23.7(L) 26.6 - 33.0 pg 07/17/2025 6:36 AM EST [facility] MCHC 29.9(L) 31.5 - 35.7 g/dL 07/17/2025 6:36 AM [facility] RDW 18.7(H) 12.3 - 15.4 % 07/17/2025 6:36 AM [facility] RDW-SD 54.2(H) 37.0 - 54.0 fl 07/17/2025 6:36 AM [facility] MPV 9.7 6.0 - 12.0 fL 07/17/2025 6:36 AM EST [facility] Platelets 211 140 - 450 10*3/mm3 07/17/2025 6:36 AM [facility] Blood Venipuncture / Unknown 07/17/2025 5:48 AM EST 07/17/2025 6:12 AM EST us Gigi Alcantara MD LAB BLOOD ORDERABLES Final R esult [facility]
[address] [place] [address], * (ABNORMAL) Basic Metabolic Panel (07/17/2025 5:48 AM EST) Glucose 132(H) 65 - 99 mg/dL 07/17/2025 6:55 AM [facility] BUN 21.8 8.0 - 23.0 mg/dL 07/17/2025 6:55 AM [facility] Creatinine 0.89 0.76 - 1.27 mg/dL 07/17/2025 6:55 AM [facility] Sodium 139 136 - 145 mmol/L 07/17/2025 6:55 AM [facility] Potassium 5.2 3.5 - 5.2 mmol/L 07/17/2025 6:55 AM [facility] Chloride 109(H) 98 - 107 mmol/L 07/17/2025 6:55 AM [facility] CO2 19.1(L) 22.0 - 29.0 mmol/L 07/17/2025 6:55 AM [facility] Calcium 8.8 8.6 - 10.5 mg/dL 07/17/2025 6:55 AM [facility] BUN/Creatinine Ratio 24.5 7.0 - 25.0 07/17/2025 6:55 AM [facility] Anion Gap 10.9 5.0 - 15.0 mmol/L 07/17/2025 6:55 AM [facility] eGFR 91.6 >60.0 mL/min/1.7 3 07/17/2025 6:55 AM [facility] Blood Venipuncture / Unknown 07/17/2025 5:48 AM EST 07/17/2025 6:13 AM EST [facility] - 07/17/2025 6:55 AM EST [...] ORDERABLES Final R esult Performing Organization Address [facility]/ZIP Co de Phone Number [facility]
[address] [place] [address], * Magnesium (07/17/2025 5:48 AM EST) Magnesium 1.9 1.6 - 2.4 mg/dL 07/17/2025 6:55 AM EST [facility] Blood Venipuncture / Unknown 07/17/2025 5:48 AM EST 07/17/2025 6:13 AM EST Gigi Alcantara MD LAB BLOOD ORDERABLES Final R esult Performing Organization Address [facility] Co de Phone Number [facility]
[address] [place] [address], * (ABNORMAL) POC Glucose Once (07/16/2025 8:02 PM EST) Glucose 142(H) 70 - 130 mg/dL 07/16/2025 8:04 PM EST [facility] Comment:Serial Number: [id number]: [id number] Blood 07/16/2025 8:02 PM EST 07/16/2025 8:04 PM EST Gigi Alcantara MD POINT OF CARE TEST ORDERABLE S Final Result Performing Organization Address [facility] Co de Phone Number [facility]
[address] [place] [address], * (ABNORMAL) POC Glucose Once (07/16/2025 4:58 PM EST) Glucose 137(H) 70 - 130 mg/dL 07/16/2025 5:17 PM EST [facility] Comment:Serial Number: [id number]: [id number] Blood 07/16/2025 4:58 PM EST 07/16/2025 5:17 PM EST Gigi Alcantara MD POINT OF CARE TEST ORDERABLE S Final Result Performing Organization Address City/[facility]/ZIP Co de Phone Number [facility]
[address] [place] [address], * POC Glucose Once (07/16/2025 11:25 AM EST) Glucose 105 70 - 130 mg/dL 07/16/2025 11:29 AM EST [facility] Comment:Serial Number: [id number]: [id number] Blood 07/16/2025 11:2 5 AM EST 07/16/2025 11:29 AM EST Gigi Alcantara MD POINT OF CARE TEST ORDERABLE S Final Result Performing Organization Address [facility] de Phone Number [facility]
[address] [place] [address], * (ABNORMAL) POC Glucose Once (07/16/2025 7:50 AM EST) Glucose 147(H) 70 - 130 mg/dL 07/16/2025 7:52 AM EST [facility] Comment:Serial Number: [id number] Blood 07/16/2025 7:50 AM EST 07/16/2025 7:52 AM EST Gigi Alcantara MD POINT OF CARE TEST ORDERABLE S Final Result Performing Organization Address City/[facility]/ZIP Co de Phone Number [facility]
[address] [place] [address], * (ABNORMAL) CBC (No Diff) (07/16/2025 4:47 AM EST) WBC 6.76 3.40 - 10.80 10*3/mm3 07/16/2025 5:19 AM EST [facility] RBC 3.74(L) 4.14 - 5.80 10*6/mm3 07/16/2025 5:19 AM EST [facility] Hemoglobin 8.9(L) 13.0 - 17.7 g/dL 07/16/2025 5:19 AM EST [facility] Hematocrit 30.2(L) 37.5 - 51.0 % 07/16/2025 5:19 AM EST [facility] MCV 80.7 79.0 - 97.0 fL 07/16/2025 5:19 AM EST [facility] MCH 23.8(L) 26.6 - 33.0 pg 07/16/2025 5:19 AM EST [facility] MCHC 29.5(L) 31.5 - 35.7 g/dL 07/16/2025 5:19 AM EST [facility] RDW 19.3(H) 12.3 - 15.4 % 07/16/2025 5:19 AM [facility] RDW-SD 56.8(H) 37.0 - 54.0 fl 07/16/2025 5:19 AM EST [facility] MPV 9.6 6.0 - 12.0 fL 07/16/2025 5:19 AM EST [facility] Platelets 185 140 - 450 10*3/mm3 07/16/2025 5:19 AM EST [facility] Blood Venipuncture / Unknown 07/16/2025 4:47 AM EST 07/16/2025 5:02 AM EST us Gigi Alcantara MD LAB BLOOD ORDERABLES Final R esult [facility]
[address] [place] [address], * (ABNORMAL) Basic Metabolic Panel (07/16/2025 4:47 AM EST) Glucose 134(H) 65 - 99 mg/dL 07/16/2025 6:19 AM EST [facility] BUN 23.1(H) 8.0 - 23.0 mg/dL 07/16/2025 6:19 AM EST [facility] Creatinine 0.80 0.76 - 1.27 mg/dL 07/16/2025 6:19 AM EST [facility] Sodium 139 136 - 145 mmol/L 07/16/2025 6:19 AM [facility] Potassium 4.9 3.5 - 5.2 mmol/L 07/16/2025 6:19 AM [facility] Chloride 110(H) 98 - 107 mmol/L 07/16/2025 6:19 AM [facility] CO2 19.3(L) 22.0 - 29.0 mmol/L 07/16/2025 6:19 AM [facility] Calcium 8.5(L) 8.6 - 10.5 mg/dL 07/16/2025 6:19 AM [facility] BUN/Creatinine Ratio 28.9(H) 7.0 - 25.0 07/16/2025 6:19 AM [facility] Anion Gap 9.7 5.0 - 15.0 mmol/L 07/16/2025 6:19 AM [facility] eGFR 94.6 >60.0 mL/min/1.7 3 07/16/2025 6:19 AM [facility] Blood Venipuncture / Unknown 07/16/2025 4:47 AM EST 07/16/2025 5:01 AM EST [facility] - 07/16/2025 6:19 AM EST [...] Final R esult Performing Organization Address City/[facility] Co de Phone Number [facility]
[address] [place] [address], * Magnesium (07/16/2025 4:47 AM EST) Magnesium 2.0 1.6 - 2.4 mg/dL 07/16/2025 6:19 AM EST [facility] Blood Venipuncture / Unknown 07/16/2025 4:47 AM EST 07/16/2025 5:01 AM EST Gigi Alcantara MD LAB BLOOD ORDERABLES Final R esult Performing Organization Address [facility] Co de Phone Number [facility]
[address] [place] [address], * (ABNORMAL) POC Glucose Once (07/15/2025 7:34 PM EST) Glucose 158(H) 70 - 130 mg/dL 07/15/2025 7:44 PM EST [facility] Comment:Serial Number: [id number]: [id number] Blood 07/15/2025 7:34 PM EST 07/15/2025 7:44 PM EST Gigi Alcantara MD POINT OF CARE TEST ORDERABLE S Final Result Performing Organization Address [facility] Co de Phone Number [facility]
[address] [place] [address], * (ABNORMAL) POC Glucose Once (07/15/2025 4:24 PM EST) Glucose 131(H) 70 - 130 mg/dL 07/15/2025 4:27 PM EST [facility] Comment:Serial Number: [id number]: [id number] Blood 07/15/2025 4:24 PM EST 07/15/2025 4:26 PM EST Gigi Alcantara MD POINT OF CARE TEST ORDERABLE S Final Result Performing Organization Address [facility] Co de Phone Number [facility]
[address] [place] [address], * (ABNORMAL) POC Glucose Once (07/15/2025 11:11 AM EST) Glucose 219(H) 70 - 130 mg/dL 07/15/2025 11:14 AM EST [facility] Comment:Serial Number: [id number]: [id number] Blood 07/15/2025 11:1 1 AM EST 07/15/2025 11:13 AM EST us Gigi Alcantara MD POINT OF CARE TEST ORDERABLE S Final Result Performing Organization Address City/[facility]/ZIP Co de Phone Number [facility]
[address] [place] [address], * POC Glucose Once (07/15/2025 7:20 AM EST) Glucose 106 70 - 130 mg/dL 07/15/2025 7:22 AM EST [facility] Comment:Serial Number: [id number]: [id number] Blood 07/15/2025 7:20 AM EST 07/15/2025 7:22 AM EST us Gigi Alcantara MD POINT OF CARE TEST ORDERABLE S Final Result Performing Organization Address City/[facility]/ZIP Co de Phone Number [facility]
[address] [place] [address], * ECG 12 Lead QT Measurement (07/15/2025 5:26 AM EST) QT Interval 374 ms ECG QTC Interval 445 ms ECG 07/15/2025 [...] was found Confirmed by CORBIN VO MD ([id number]) on 07/15/2025 10:46:36 AM Referred By: Confirmed [...] was found Confirmed by CORBIN VO MD ([id number]) on 07/15/2025 10:46:36 AM Referred By: Confirmed By: CORBIN VO MD Gigi Alcantara MD ECG ORDERABLES Final Result ECG * (ABNORMAL) CBC (No Diff) (07/15/2025 4:32 AM EST) [facility] Signature WBC 8.08 3.40 - 10.80 10*3/mm3 07/15/2025 4:57 AM EST [facility] RBC 3.72(L) 4.14 - 5.80 10*6/mm3 07/15/2025 4:57 AM EST [facility] Hemoglobin 8.9(L) 13.0 - 17.7 g/dL 07/15/2025 4:57 AM EST [facility] Hematocrit 30.1(L) 37.5 - 51.0 % 07/15/2025 4:57 AM EST [facility] MCV 80.9 79.0 - 97.0 fL 07/15/2025 4:57 AM EST [facility] MCH 23.9(L) 26.6 - 33.0 pg 07/15/2025 4:57 AM EST [facility] MCHC 29.6(L) 31.5 - 35.7 g/dL 07/15/2025 4:57 AM [facility] RDW 19.0(H) 12.3 - 15.4 % 07/15/2025 4:57 AM [facility] RDW-SD 55.8(H) 37.0 - 54.0 fl 07/15/2025 4:57 AM EST [facility] MPV 9.3 6.0 - 12.0 fL 07/15/2025 4:57 AM EST [facility] Platelets 210 140 - 450 10*3/mm3 07/15/2025 4:57 AM [facility] Blood Venipuncture / Unknown 07/15/2025 4:32 AM EST 07/15/2025 4:49 AM EST us Gigi Alcantara MD LAB BLOOD ORDERABLES Final R esult [facility]
[address] [place] [address], * (ABNORMAL) Basic Metabolic Panel (07/15/2025 4:32 AM EST) [facility] Glucose 98 65 - 99 mg/dL 07/15/2025 5:21 AM [facility] BUN 25.4(H) 8.0 - 23.0 mg/dL 07/15/2025 5:21 AM [facility] Creatinine 0.74(L) 0.76 - 1.27 mg/dL 07/15/2025 5:21 AM EST [facility] Sodium 139 136 - 145 mmol/L 07/15/2025 5:21 AM [facility] Potassium 4.8 3.5 - 5.2 mmol/L 07/15/2025 5:21 AM [facility] Chloride 111(H) 98 - 107 mmol/L 07/15/2025 5:21 AM [facility] CO2 18.8(L) 22.0 - 29.0 mmol/L 07/15/2025 5:21 AM [facility] Calcium 8.6 8.6 - 10.5 mg/dL 07/15/2025 5:21 AM [facility] BUN/Creatinine Ratio 34.3(H) 7.0 - 25.0 07/15/2025 5:21 AM [facility] Anion Gap 9.2 5.0 - 15.0 mmol/L 07/15/2025 5:21 AM [facility] eGFR 96.9 >60.0 mL/min/1.7 3 07/15/2025 5:21 AM [facility] Blood Venipuncture / Unknown 07/15/2025 4:32 AM EST 07/15/2025 4:52 AM EST [facility] - 07/15/2025 5:21 AM EST [...] Final R esult Performing Organization Address City/[facility]/ZIP Co de Phone Number [facility]
[address] [place] [address], * Magnesium (07/15/2025 4:32 AM EST) Magnesium 2.1 1.6 - 2.4 mg/dL 07/15/2025 5:21 AM EST [facility] Blood Venipuncture / Unknown 07/15/2025 4:32 AM EST 07/15/2025 4:52 AM EST Gigi Alcantara MD LAB BLOOD ORDERABLES Final R esult Performing Organization Address [facility] Co de Phone Number [facility]
[address] [place] [address], * (ABNORMAL) POC Glucose Once (07/14/2025 7:32 PM EDT) Glucose 156(H) 70 - 130 mg/dL 07/14/2025 7:35 PM EDT [facility] Comment:Serial Number: [id number]: [id number] Blood 07/14/2025 7:32 PM EDT 07/14/2025 7:35 PM EDT Gigi Alcantara MD POINT OF CARE TEST ORDERABLE S Final Result Performing Organization Address City/[facility] Co de Phone Number [facility]
[address] [place] [address], * POC Glucose Once (07/14/2025 4:04 PM EDT) Glucose 108 70 - 130 mg/dL 07/14/2025 4:09 PM EDT [facility] Comment:Serial Number: [id number]: [id number] Blood 07/14/2025 4:04 PM EDT 07/14/2025 4:09 PM EDT Gigi Alcantara MD POINT OF CARE TEST ORDERABLE S Final Result Performing Organization Address City/[facility] Co de Phone Number [facility]
[address] [place] [address], * (ABNORMAL) POC Glucose Once (07/14/2025 3:20 PM EDT) Glucose 182(H) 70 - 130 mg/dL 07/14/2025 3:22 PM EDT [facility] Comment:Serial Number: [id number]: [id number] Blood 07/14/2025 3:20 PM EDT 07/14/2025 3:22 PM EDT Gigi Alcantara MD POINT OF CARE TEST ORDERABLE S Final Result Performing Organization Address City/[facility]/ZIP Co de Phone Number [facility]
[address] [place] [address], * (ABNORMAL) Blood Gas, Venous With Co-Ox (07/14/2025 3:17 PM EDT) Site Nurse/Dr Draw 07/14/2025 3:27 PM EDT [facility] THERAPY pH, Venous 7.352 7.310 - 7.410 pH Units 07/14/2025 3:27 PM EDT [facility] THERAPY pCO2, Venous 39.4(L) 41.0 - 51.0 mm Hg 07/14/2025 3:27 PM EDT [facility]ER[facility] Comment:84 Value below refer ence range pO2, Venous 96.7(H) 27.0 - 53.0 mm Hg 07/14/2025 3:27 PM EDT [facility]ER[facility] Comment:83 Value above refer ence range HCO3, Venous 21.8(L) 22.0 - 28.0 mmol/L 07/14/2025 3:27 PM EDT [facility] THERAPY Base Excess, Venous -3.5(L) -2.0 - 2.0 mmol/L 07/14/2025 3:27 PM EDT [facility] THER[facility] Hemoglobin, Blood Gas 8.8(L) 13.5 - 17.5 g/dL 07/14/2025 3:27 PM EDT [facility] THERAP[facility] Oxyhemoglobin Venous 95.8 % 09/2024 3:27 PM EDT [facility]ER[facility] Comment:83 Value above refer ence range Methemoglobin Venous 0.5 % 09/2024 3:27 PM EDT [facility] THER[facility] Carboxyhemoglobin Venous 1.3 % 07/14/2025 3:27 PM EDT [facility] THERAP[facility] CO2 Content 23.0 22 - 33 mmol/L 07/14/2025 3:27 PM EDT [facility] THERAPY Temperature 37.0 07/14/2025 3:27 PM EDT [facility] THERAP[facility] Barometric Pressure for Blood Gas 07/14/2025 3:27 PM EDT [facility] THER[facility] Comment:N/A Modality Room Air 07/14/2025 3:27 PM EDT [facility] THERAPY FIO2 21 % 07/14/2025 3:27 PM EDT [facility] THERAPY Rate 0 Breaths/ minute 07/14/2025 3:27 PM EDT [facility] THERAPY PIP 0 cmH2O 07/14/2025 3:27 PM EDT [facility] THERAPY Comment:Meter: [id number] N0012 Skates Operator: [id number] IPAP 0 cm H2O 07/14/2025 3[facility] EPAP 0 cm H2O 07/14/2025 3:27 PM EDT [facility] THERAPY Venous Blood 07/14/2025 3:17 PM EDT 07/14/2025 3:17 PM EDT Gigi Alcantara MD LAB BLOOD ORDERABLES Final R esult Performing Organization Address City/[facility]/ZIP Co de Phone Number [facility] THERAP[facility]
[address] [place] [address], * POC Glucose Once (07/14/2025 2:48 PM EDT) Glucose 72 70 - 130 mg/dL 07/14/2025 2:50 PM EDT [facility] Comment:Serial Number: [id number]: [id number] Blood 07/14/2025 2:48 PM EDT 07/14/2025 2:50 PM EDT Gigi Alcantara MD POINT OF CARE TEST ORDERABLE S Final Result Performing Organization Address [facility] Co de Phone Number [facility]
[address] [place] [address], * POC Glucose Once (07/14/2025 11:08 AM EDT) Glucose 75 70 - 130 mg/dL 07/14/2025 11:10 AM EDT [facility] Comment:Serial Number: [id number]: [id number] Blood 07/14/2025 11:0 8 AM EDT 07/14/2025 11:10 AM EDT Gigi Alcantara MD POINT OF CARE TEST ORDERABLE S Final Result Performing Organization Address City/[facility]/ZIP Co de Phone Number [facility]
[address] [place] [address], * POC Glucose Once (07/14/2025 7:33 AM EDT) [facility] Glucose 92 70 - 130 mg/dL 07/14/2025 7:34 AM EDT [facility] Comment:Serial Number: [id number]: [id number] Blood 07/14/2025 7:33 AM EDT 07/14/2025 7:34 AM EDT Gigi Alcantara MD POINT OF CARE TEST ORDERABLE S Final Result [facility]
[address] [place] [address], * (ABNORMAL) Blood Gas, Venous With Co-Ox (07/14/2025 6:01 AM EDT) [facility] Site Nurse/Dr Draw 07/14/2025 6:10 AM EDT [facility] THERAPY pH, Venous 7.311 7.310 - 7.410 pH Units 07/14/2025 6:10 AM EDT [facility] THERAP[facility] Comment:84 Value below refer ence range pCO2, Venous 43.7 41.0 - 51.0 mm Hg 07/14/2025 6:10 AM EDT [facility] THER[facility] pO2, Venous 24.3(L) 27.0 - 53.0 mm Hg 07/14/2025 6:10 AM EDT [facility] THER[facility] Comment:84 Value below refer ence range HCO3, Venous 22.1 22.0 - 28.0 mmol/L 07/14/2025 6:10 AM EDT [facility] THERAPY Base Excess, Venous -4.0(L) -2.0 - 2.0 mmol/L 07/14/2025 6:10 AM EDT [facility] THER[facility] Hemoglobin, Blood Gas 9.2(L) 13.5 - 17.5 g/dL 07/14/2025 6:10 AM EDT [facility]ER[facility] Oxyhemoglobin Venous 34.7 % 09/2024 6:10 AM EDT [facility]ER[facility] Comment:84 Value below refer ence range Methemoglobin Venous 0.4 % 09/2024 6:10 AM EDT [facility] THER[facility] Carboxyhemoglobin Venous 1.1 % 07/14/2025 6:10 AM EDT [facility] THER[facility] CO2 Content 23.4 22 - 33 mmol/L 07/14/2025 6:10 AM EDT [facility] THERAPY Temperature 37.0 07/14/2025 6:10 AM EDT [facility] THERAP[facility] Barometric Pressure for Blood Gas 07/14/2025 6:10 AM EDT [facility] THERAP[facility] Comment:N/A Modality Room Air 07/14/2025 6:10 AM EDT [facility] THERAPY FIO2 21 % 07/14/2025 6:10 AM EDT [facility] THERAP[facility] Rate 0 Breaths/ minute 07/14/2025 6:10 AM EDT [facility] THERAP[facility] PIP 0 cmH2O 07/14/2025 6:10 AM EDT [facility] THERAP[facility] Comment:Meter: [id number] N0012 Skates Operator: [id number] IPAP 0 cm H2O 07/14/2025 6:10 AM EDT [facility] THERAP[facility] EPAP 0 cm H2O 07/14/2025 6:10 AM EDT [facility] THERAP[facility] Venous Blood 07/14/2025 6:01 AM EDT 07/14/2025 6:01 AM EDT us Gigi Alcantara MD LAB BLOOD ORDERABLES Final R esult [facility] THERAPY
[address] [place] [address], * POC Glucose Once (07/14/2025 5:35 AM EDT) Glucose 81 70 - 130 mg/dL 07/14/2025 5:37 AM EDT [facility] Comment:Serial Number: [id number]: [id number] Blood 07/14/2025 5:35 AM EDT 07/14/2025 5:37 AM EDT Gigi Alcantara MD POINT OF CARE TEST ORDERABLE S Final Result [facility]
[address] [place] [address], * POC Glucose Once (07/14/2025 4:40 AM EDT) Glucose 75 70 - 130 mg/dL 07/14/2025 4:41 AM EDT [facility] Comment:Serial Number: [id number]: [id number] Blood 07/14/2025 4:40 AM EDT 07/14/2025 4:41 AM EDT Gigi Alcantara MD POINT OF CARE TEST ORDERABLE S Final Result Performing Organization Address [facility]/ZIP Co de Phone Number [facility]
[address] [place] [address], * Lactic Acid, Plasma (07/14/2025 4:26 AM EDT) Lactate 1.0 0.5 - 2.0 mmol/L 07/14/2025 5:26 AM EDT [facility] Comment:Falsely depressed re sults may occur on samples drawn from patients receiving N-Acetylcysteine (NAC) or Metamizole. Blood Venipuncture / Unknown 07/14/2025 4:26 AM EDT 07/14/2025 5:03 AM EDT Kate Sherwood APRN LAB BLOOD ORDERABLES Final Resul t [facility]
[address] [place] [address], [place] [phone] * Magnesium (07/14/2025 4:25 AM EDT) Magnesium 2.3 1.6 - 2.4 mg/dL 07/14/2025 5:29 AM EDT [facility] Blood Venipuncture / Unknown 07/14/2025 4:25 AM EDT 07/14/2025 5:03 AM EDT Gigi Alcantara MD LAB BLOOD ORDERABLES Final R esult [facility]
[address] [place] [address], * (ABNORMAL) CBC (No Diff) (07/14/2025 4:25 AM EDT) Pathologist [facility] WBC 8.27 3.40 - 10.80 10*3/mm3 07/14/2025 5:33 AM EDT [facility] RBC 3.92(L) 4.14 - 5.80 10*6/mm3 07/14/2025 5:33 AM EDT [facility] Hemoglobin 9.2(L) 13.0 - 17.7 g/dL 07/14/2025 5:33 AM EDT [facility] Hematocrit 30.9(L) 37.5 - 51.0 % 07/14/2025 5:33 AM EDT [facility] MCV 78.8(L) 79.0 - 97.0 fL 07/14/2025 5:33 AM EDT [facility] MCH 23.5(L) 26.6 - 33.0 pg 07/14/2025 5:33 AM EDT [facility] MCHC 29.8(L) 31.5 - 35.7 g/dL 07/14/2025 5:33 AM EDT [facility] RDW 19.0(H) 12.3 - 15.4 % 07/14/2025 5:33 AM EDT [facility] RDW-SD 53.9 37.0 - 54.0 fl 07/14/2025 5:33 AM EDT [facility] MPV 9.6 6.0 - 12.0 fL 07/14/2025 5:33 AM EDT [facility] Platelets 251 140 - 450 10*3/mm3 07/14/2025 5:33 AM EDT [facility] Blood Venipuncture / Unknown 07/14/2025 4:25 AM EDT 07/14/2025 5:28 AM EDT Gigi Alcantara MD LAB BLOOD ORDERABLES Final R esult [facility]
[address] [place] [address], * (ABNORMAL) Basic Metabolic Panel (07/14/2025 4:25 AM EDT) Glucose 67 65 - 99 mg/dL 07/14/2025 5:29 AM EDT [facility] BUN 37.3(H) 8.0 - 23.0 mg/dL 07/14/2025 5:29 AM EDT [facility] Creatinine 1.17 0.76 - 1.27 mg/dL 07/14/2025 5:29 AM EDT [facility] Sodium 141 136 - 145 mmol/L 07/14/2025 5:29 AM EDT [facility] Potassium 4.9 3.5 - 5.2 mmol/L 07/14/2025 5:29 AM EDT [facility] Chloride 111(H) 98 - 107 mmol/L 07/14/2025 5:29 AM EDT [facility] CO2 19.8(L) 22.0 - 29.0 mmol/L 07/14/2025 5:29 AM EDT [facility] Calcium 8.6 8.6 - 10.5 mg/dL 07/14/2025 5:29 AM EDT [facility] BUN/Creatinine Ratio 31.9(H) 7.0 - 25.0 07/14/2025 5:29 AM EDT [facility] Anion Gap 10.2 5.0 - 15.0 mmol/L 07/14/2025 5:29 AM EDT [facility] eGFR 66.6 >60.0 mL/min/1.7 3 07/14/2025 5:29 AM EDT [facility] Blood Venipuncture / Unknown 07/14/2025 4:25 AM EDT 07/14/2025 5:03 AM EDT [facility] - 07/14/2025 5:29 AM EDT [...] MD LAB BLOOD ORDERABLES Final R esult [facility]
[address] [place] [address], * Vancomycin, Random (07/14/2025 4:25 AM EDT) Vancomycin Random 22.70 5.00 - 40.00 mcg/mL 07/14/2025 5:29 AM EDT [facility] Blood Venipuncture / Unknown 07/14/2025 4:25 AM EDT 07/14/2025 5:03 AM EDT [facility] - 07/14/2025 5:29 AM EDT Therapeutic Ranges for Vancomycin Vancomycin Random 5.0-40.0 mcg/mL Vancomycin Trough 5.0-20.0 mcg/mL Vancomycin Peak 20.0-40.0 mcg/mL Osmany Tierney Siobhan [facility] BLOOD ORDERABLES Final Result Performing Organization Address City/[facility]/ZIP Co de Phone Number [facility]
[address] [place] [address], [place] [phone] * (ABNORMAL) Urine Culture - Urine, Indwelling Urethral Catheter (07/14/2025 12:53 AM EDT) [facility] Urine Culture Yeast isolated(A ) MURRAY 07/15/2025 1:29 PM EST [facility] Urine (Indwelling Urethral Catheter) Collection / Unknown 07/14/2025 12:53 AM EDT 07/14/2025 1:10 AM EDT Narrative [facility] - 07/15/2025 1:29 PM EST No further workup for yeast Colonization of the urinary tract without infection is common. Treatment is discouraged unless the patient is symptomatic, , or undergoing an invasive urologic procedure. Kate Kaela PAREKH MICROBIOLOGY - GENERAL ORDERABLE S Final Result Performing Organization Address [facility] Co de Phone Number [facility]
[address] [place] [address], [place] [phone] * (ABNORMAL) Urinalysis, Microscopic Only - Indwelling Urethral Catheter (07/14/2025 12:53 AM EDT) Pathologist [facility] RBC, UA 3-5(A) None Seen, 0-2 /HPF 07/14/2025 1:35 AM EDT [facility] WBC, UA Too Numerous to Count(A) None Seen, 0-2 /HPF 07/14/2025 1:35 AM EDT [facility] Bacteria, UA None Seen None Seen /HPF 07/14/2025 1:35 AM EDT [facility] Squamous Epithelial Cells, UA 0-2 None Seen, 0-2 /HPF 07/14/2025 1:35 AM EDT [facility] Hyaline Casts, UA 0-2 None Seen /LPF 07/14/2025 1:35 AM EDT [facility] Methodology Automated Microscopy 07/14/2025 1:35 AM EDT [facility] Urine (Indwelling Urethral Catheter) Collection / Unknown 07/14/2025 12:53 AM EDT 07/14/2025 1:10 AM EDT Kate Sherwood APRN URINE ORDERABLES Final Result [facility]
[address] [place] [address], * (ABNORMAL) Urinalysis With Culture If Indicated - Indwelling Urethral Catheter (07/14/2025 12:53 AMEDT) Color, UA Yellow Yellow, Straw 07/14/2025 1:35 AM EDT [facility] Appearance, UA Clear Clear 07/14/2025 1:35 AM EDT [facility] pH, UA 5.5 5.0 - 8.0 07/14/2025 1:35 AM EDT [facility] Specific [place], UA 1.018 1.005 - 1.030 07/14/2025 1:35 AM EDT [facility] Glucose, UA Negative Negative 07/14/2025 1:35 AM EDT [facility] Ketones, UA Negative Negative 07/14/2025 1:35 AM EDT [facility] Bilirubin, UA Negative Negative 07/14/2025 1:35 AM EDT [facility] Blood, UA Trace(A) Negative 07/14/2025 1:35 AM EDT [facility] Protein, UA 30 mg/dL (1+)(A) Negative 07/14/2025 1:35 AM EDT [facility] Leuk Esterase, UA Moderate (2+)(A) Negative 07/14/2025 1:35 AM EDT [facility] Nitrite, UA Negative Negative 07/14/2025 1:35 AM EDT [facility] Urobilinogen, UA 0.2 E.U./dL 0.2 - 1.0 E.U./dL 07/14/2025 1:35 AM EDT [facility] Urine (Indwelling Urethral Catheter) Collection / Unknown 07/14/2025 12:53 AM EDT 07/14/2025 1:10 AM EDT Narrative [facility] - 07/14/2025 1:35 AM EDT In absence of clinical symptoms, the presence of pyuria, bacteria, and/or nitrites on the urinalysis result does not correlate with infection. Kate Sherwood IZABELLA URINE ORDERABLES Final Result [facility]
[address] [place] [address], * (ABNORMAL) POC Glucose Once (07/13/2025 9:01 PM EDT) Glucose 180(H) 70 - 130 mg/dL 07/13/2025 9:04 PM EDT [facility] Comment:Serial Number: [id number]: [id number] Blood 07/13/2025 9:01 PM EDT 07/13/2025 9:04 PM EDT Gigi Alcantara MD POINT OF CARE TEST ORDERABLE S Final Result [facility]
[address] [place] [address], * Potassium (07/13/2025 6:48 PM EDT) Potassium 5.1 3.5 - 5.2 mmol/L 07/13/2025 7:55 PM EDT [facility] Blood Venipuncture / Unknown 07/13/2025 6:48 PM EDT 07/13/2025 7:26 PM EDT Gill Raymondn [facility] LAB BLOOD ORDERABLES Final R esult Performing Organization Address [facility] de Phone Number [facility]
[address] [place] [address], * (ABNORMAL) POC Glucose Once (07/13/2025 4:33 PM EDT) Glucose 148(H) 70 - 130 mg/dL 07/13/2025 4:35 PM EDT [facility] Comment:Serial Number: [id number]: [id number] Blood 07/13/2025 4:33 PM EDT 07/13/2025 4:35 PM EDT Gigi Alcantara MD POINT OF CARE TEST ORDERABLE S Final Result Performing Organization Address [facility] Co de Phone Number [facility]
[address] [place] [address], * POC Glucose Once (07/13/2025 11:50 AM EDT) Glucose 126 70 - 130 mg/dL 07/13/2025 11:54 AM EDT [facility] Comment:Serial Number: [id number]: [id number] Blood 07/13/2025 11:5 0 AM EDT 07/13/2025 11:54 AM EDT us Gigi Alcantara MD POINT OF CARE TEST ORDERABLE S Final Result Performing Organization Address [facility] de Phone Number [facility]
[address] [place] [address], * Magnesium (07/13/2025 8:08 AM EDT) Magnesium 2.2 1.6 - 2.4 mg/dL 07/13/2025 9:01 AM EDT [facility] Blood Venipuncture / Unknown 07/13/2025 8:08 AM EDT 07/13/2025 8:32 AM EDT Gigi Alcantara MD LAB BLOOD ORDERABLES Final R esult [facility]
[address] [place] [address], * (ABNORMAL) CBC (No Diff) (07/13/2025 8:08 AM EDT) WBC 6.58 3.40 - 10.80 10*3/mm3 07/13/2025 8:46 AM EDT [facility] RBC 3.90(L) 4.14 - 5.80 10*6/mm3 07/13/2025 8:46 AM EDT [facility] Hemoglobin 9.4(L) 13.0 - 17.7 g/dL 07/13/2025 8:46 AM EDT [facility] Hematocrit 30.1(L) 37.5 - 51.0 % 07/13/2025 8:46 AM EDT [facility] MCV 77.2(L) 79.0 - 97.0 fL 07/13/2025 8:46 AM EDT [facility] MCH 24.1(L) 26.6 - 33.0 pg 07/13/2025 8:46 AM EDT [facility] MCHC 31.2(L) 31.5 - 35.7 g/dL 07/13/2025 8:46 AM EDT [facility] RDW 18.9(H) 12.3 - 15.4 % 07/13/2025 8:46 AM EDT [facility] RDW-SD 52.4 37.0 - 54.0 fl 07/13/2025 8:46 AM EDT [facility] MPV 9.4 6.0 - 12.0 fL 07/13/2025 8:46 AM EDT [facility] Platelets 256 140 - 450 10*3/mm3 07/13/2025 8:46 AM EDT [facility] Blood Venipuncture / Unknown 07/13/2025 8:08 AM EDT 07/13/2025 8:32 AM EDT Gigi Alcantara MD LAB BLOOD ORDERABLES Final R esult Performing Organization Address City/[facility]/ZIP Co de Phone Number [facility]
[address] [place] [address], * POC Glucose Once (07/13/2025 7:22 AM EDT) Glucose 104 70 - 130 mg/dL 07/13/2025 7:24 AM EDT [facility] Comment:Serial Number: [id number]: [id number] Blood 07/13/2025 7:22 AM EDT 07/13/2025 7:24 AM EDT Gigi Alcantara MD POINT OF CARE TEST ORDERABLE S Final Result Performing Organization Address [facility] de Phone Number [facility]
[address] [place] [address], * (ABNORMAL) Basic Metabolic Panel (07/12/2025 11:33 PM EDT) Glucose 126(H) 65 - 99 mg/dL 07/13/2025 12:34 AM EDT [facility] BUN 36.8(H) 8.0 - 23.0 mg/dL 07/13/2025 12:34 AM EDT [facility] Creatinine 1.19 0.76 - 1.27 mg/dL 07/13/2025 12:34 AM EDT [facility] Sodium 136 136 - 145 mmol/L 07/13/2025 12:[facility] Potassium 5.2 3.5 - 5.2 mmol/L 07/13/2025 12:34 AM EDT [facility] Chloride 104 98 - 107 mmol/L 07/13/2025 12:34 AM EDT [facility] CO2 21.9(L) 22.0 - 29.0 mmol/L 07/13/2025 12:34 AM EDT [facility] Calcium 8.6 8.6 - 10.5 mg/dL 07/13/2025 12:34 AM EDT [facility] BUN/Creatinine Ratio 30.9(H) 7.0 - 25.0 07/13/2025 12:34 AM EDT [facility] Anion Gap 10.1 5.0 - 15.0 mmol/L 07/13/2025 12:34 AM EDT [facility] eGFR 65.3 >60.0 mL/min/1.7 3 07/13/2025 12:34 AM EDT [facility] Blood Venipuncture / Unknown 07/12/2025 11:33 PM EDT 07/12/2025 11:59 PM EDT [facility] - 07/13/2025 12:34 AM EDT [...] race as a factor us Chinyere Hensley CONSTRUCTION COST ESTIMATOR LAB BLOOD ORDERABLES Final Result [facility]
[address] [place] [address], * (ABNORMAL) POC Glucose Once (07/12/2025 8:19 PM EDT) Glucose 152(H) 70 - 130 mg/dL 07/12/2025 8:22 PM EDT [facility] Comment:Serial Number: [id number]: [id number] Blood 07/12/2025 8:19 PM EDT 07/12/2025 8:22 PM EDT Gigi Alcantara MD POINT OF CARE TEST ORDERABLE S Final Result Performing Organization Address [facility] Co de Phone Number [facility]
[address] [place] [address], * (ABNORMAL) POC Glucose Once (07/12/2025 4:05 PM EDT) Glucose 154(H) 70 - 130 mg/dL 07/12/2025 4:09 PM EDT [facility] Comment:Serial Number: [id number]: [id number] Blood 07/12/2025 4:05 PM EDT 07/12/2025 4:09 PM EDT Gigi Alcantara MD POINT OF CARE TEST ORDERABLE S Final Result Performing Organization Address [facility] de Phone Number [facility]
[address] [place] [address], * (ABNORMAL) Basic Metabolic Panel (07/12/2025 3:35 PM EDT) Glucose 137(H) 65 - 99 mg/dL 07/12/2025 4:18 PM EDT [facility] BUN 34.2(H) 8.0 - 23.0 mg/dL 07/12/2025 4:18 PM EDT [facility] Creatinine 1.13 0.76 - 1.27 mg/dL 07/12/2025 4:18 PM EDT [facility] Sodium 138 136 - 145 mmol/L 07/12/2025 4:18 PM EDT [facility] Potassium 5.6(H) 3.5 - 5.2 mmol/L 07/12/2025 4:18 PM EDT [facility] Chloride 103 98 - 107 mmol/L 07/12/2025 4:18 PM EDT [facility] CO2 19.6(L) 22.0 - 29.0 mmol/L 07/12/2025 4:18 PM EDT [facility] Calcium 8.9 8.6 - 10.5 mg/dL 07/12/2025 4:18 PM EDT [facility] BUN/Creatinine Ratio 30.3(H) 7.0 - 25.0 07/12/2025 4:18 PM EDT [facility] Anion Gap 15.4(H) 5.0 - 15.0 mmol/L 07/12/2025 4:18 PM EDT [facility] eGFR 69.5 >60.0 mL/min/1.7 3 07/12/2025 4:18 PM EDT [facility] Blood Venipuncture / Unknown 07/12/2025 3:35 PM EDT 07/12/2025 3:56 PM EDT [facility] - 07/12/2025 4:18 PM EDT [...] Hensley APRN LAB BLOOD ORDERABLES Final Result [facility]
[address] [place] [address], * POC Glucose Once (07/12/2025 11:56 AM EDT) Glucose 122 70 - 130 mg/dL 07/12/2025 11:59 AM EDT [facility] Comment:Serial Number: [id number]: [id number] Blood 07/12/2025 11:5 6 AM EDT 07/12/2025 11:59 AM EDT Gigi Alcantara MD POINT OF CARE TEST ORDERABLE S Final Result Performing Organization Address City/[facility]/ZIP Co de Phone Number [facility]
[address] [place] [address], * POC Glucose Once (07/12/2025 7:31 AM EDT) Glucose 86 70 - 130 mg/dL 07/12/2025 7:33 AM EDT [facility] Comment:Serial Number: [id number]: [id number] Blood 07/12/2025 7:31 AM EDT 07/12/2025 7:33 AM EDT Gigi Alcantara MD POINT OF CARE TEST ORDERABLE S Final Result Performing Organization Address City/[facility]/ZIP Co de Phone Number [facility]
[address] [place] [address], * ECG 12 Lead Electrolyte Imbalance (07/12/2025 [...] Confirmed By: HEMANTH ENCISO MD Radha López APRN ECG ORDERABLES Final Resul t Performing Organization Address City/[facility]/ZIP Co de Phone Number ECG * Magnesium (07/12/2025 4:54 AM EDT) Magnesium 2.1 1.6 - 2.4 mg/dL 07/12/2025 5:35 AM EDT [facility] Blood Venipuncture / Unknown 07/12/2025 4:54 AM EDT 07/12/2025 5:06 AM EDT Gigi Alcantara MD LAB BLOOD ORDERABLES Final R esult [facility]
[address] [place] [address], [place] [phone] * (ABNORMAL) CBC (No Diff) (07/12/2025 4:54 AM EDT) WBC 8.43 3.40 - 10.80 10*3/mm3 07/12/2025 5:15 AM EDT [facility] RBC 4.15 4.14 - 5.80 10*6/mm3 07/12/2025 5:15 AM EDT [facility] Hemoglobin 10.1(L) 13.0 - 17.7 g/dL 07/12/2025 5:15 AM EDT [facility] Hematocrit 33.1(L) 37.5 - 51.0 % 07/12/2025 5:15 AM EDT [facility] MCV 79.8 79.0 - 97.0 fL 07/12/2025 5:15 AM EDT [facility] MCH 24.3(L) 26.6 - 33.0 pg 07/12/2025 5:15 AM EDT [facility] MCHC 30.5(L) 31.5 - 35.7 g/dL 07/12/2025 5:15 AM EDT [facility] RDW 19.1(H) 12.3 - 15.4 % 07/12/2025 5:15 AM EDT [facility] RDW-SD 55.0(H) 37.0 - 54.0 fl 07/12/2025 5:15 AM EDT [facility] MPV 9.0 6.0 - 12.0 fL 07/12/2025 5:15 AM EDT [facility] Platelets 282 140 - 450 10*3/mm3 07/12/2025 5:15 AM EDT [facility] Blood Venipuncture / Unknown 07/12/2025 4:54 AM EDT 07/12/2025 5:06 AM EDT us Gigi Alcantara MD LAB BLOOD ORDERABLES Final R esult [facility]
[address] [place] [address], * (ABNORMAL) Basic Metabolic Panel (07/12/2025 4:54 AM EDT) Glucose 107(H) 65 - 99 mg/dL 07/12/2025 5:35 AM EDT [facility] BUN 32.6(H) 8.0 - 23.0 mg/dL 07/12/2025 5:35 AM EDT [facility] Creatinine 1.09 0.76 - 1.27 mg/dL 07/12/2025 5:35 AM EDT [facility] Sodium 136 136 - 145 mmol/L 07/12/2025 5:35 AM EDT [facility] Potassium 6.1(HH) 3.5 - 5.2 mmol/L 07/12/2025 5:35 AM EDT [facility] Chloride 105 98 - 107 mmol/L 07/12/2025 5:35 AM EDT [facility] CO2 19.7(L) 22.0 - 29.0 mmol/L 07/12/2025 5:35 AM EDT [facility] Calcium 8.9 8.6 - 10.5 mg/dL 07/12/2025 5:35 AM EDT [facility] BUN/Creatinine Ratio 29.9(H) 7.0 - 25.0 07/12/2025 5:35 AM EDT [facility] Anion Gap 11.3 5.0 - 15.0 mmol/L 07/12/2025 5:35 AM [facility] eGFR 72.6 >60.0 mL/min/1.7 3 07/12/2025 5:35 AM [facility] Blood Venipuncture / Unknown 07/12/2025 4:54 AM EDT 07/12/2025 5:06 AM EDT [facility] - 07/12/2025 5:35 AM EDT [...] MD LAB BLOOD ORDERABLES Final R esult [facility]
[address] [place] [address], * Telemetry Scan (07/11/2025 9:50 PM EDT) [facility] [place] ECG ORDERABLES Final Result * (ABNORMAL) POC Glucose Once (07/11/2025 9:09 PM EDT) Glucose 164(H) 70 - 130 mg/dL 07/11/2025 9:11 PM EDT [facility] Comment:Serial Number: [id number]: [id number] Blood 07/11/2025 9:09 PM EDT 07/11/2025 9:11 PM EDT Gigi Alcantara MD POINT OF CARE TEST ORDERABLE S Final Result Performing Organization Address City/[facility]/ZIP Co de Phone Number [facility]
[address] [place] [address], * (ABNORMAL) POC Glucose Once (07/11/2025 4:47 PM EDT) Glucose 144(H) 70 - 130 mg/dL 07/11/2025 4:50 PM EDT [facility] Comment:Serial Number: [id number]: [id number] Blood 07/11/2025 4:47 PM EDT 07/11/2025 4:50 PM EDT us Gigi Alcantara MD POINT OF CARE TEST ORDERABLE S Final Result Performing Organization Address [facility] de Phone Number [facility]
[address] [place] [address], [place] [phone] * (ABNORMAL) POC Glucose Once (07/11/2025 11:21 AM EDT) Glucose 174(H) 70 - 130 mg/dL 07/11/2025 11:22 AM EDT [facility] Comment:Serial Number: [id number]: [id number] Blood 07/11/2025 11:2 1 AM EDT 07/11/2025 11:22 AM EDT us Gigi Alcantara MD POINT OF CARE TEST ORDERABLE S Final Result Performing Organization Address [facility] de Phone Number [facility]
[address] [place] [address], * (ABNORMAL) Potassium (07/11/2025 11:10 AM EDT) Potassium 5.8(H) 3.5 - 5.2 mmol/L 07/11/2025 11:40 AM EDT [facility] Blood Venipuncture / Unknown 07/11/2025 11:10 AM EDT 07/11/2025 11:23 AM EDT Chinyere Hensley APRN LAB BLOOD ORDERABLES Final Result Performing Organization Address City/[facility] Co de Phone Number [facility]
[address] [place] [address], [place] [phone] * POC Glucose Once (07/11/2025 7:15 AM EDT) Glucose 93 70 - 130 mg/dL 07/11/2025 7:17 AM EDT [facility] Comment:Serial Number: [id number]: [id number] Blood 07/11/2025 7:15 AM EDT 07/11/2025 7:17 AM EDT Gigi Alcantara MD POINT OF CARE TEST ORDERABLE S Final Result [facility]
[address] [place] [address], * ECG 12 Lead Electrolyte Imbalance (07/11/2025 [...] Confirmed By: Brent Johnson MD Radha López CONSTRUCTION COST ESTIMATOR ECG ORDERABLES Final Resul t Performing Organization Address [facility] de Phone Number ECG * Vancomycin, Random (07/11/2025 4:23 AM EDT) Vancomycin Random 16.40 5.00 - 40.00 mcg/mL 07/11/2025 8:41 AM EDT [facility] Blood Venipuncture / Unknown 07/11/2025 4:23 AM EDT 07/11/2025 4:35 AM EDT Narrative [facility] - 07/11/2025 8:41 AM EDT Therapeutic Ranges for Vancomycin Vancomycin Random 5.0-40.0 mcg/mL Vancomycin Trough 5.0-20.0 mcg/mL Vancomycin Peak 20.0-40.0 mcg/mL Osmany Mccann [facility] LAB BLOOD ORDERABLES Final Result Performing Organization Address [facility] Phone Number [facility]
[address] [place] [address], * Magnesium (07/11/2025 4:23 AM EDT) Magnesium 2.1 1.6 - 2.4 mg/dL 07/11/2025 5:27 AM EDT [facility] Blood Venipuncture / Unknown 07/11/2025 4:23 AM EDT 07/11/2025 4:35 AM EDT Gigi Alcantara MD LAB BLOOD ORDERABLES Final R esult Performing Organization Address [facility] de Phone Number [facility]
[address] [place] [address], * (ABNORMAL) CBC (No Diff) (07/11/2025 4:23 AM EDT) WBC 8.79 3.40 - 10.80 10*3/mm3 07/11/2025 4:40 AM EDT [facility] RBC 3.96(L) 4.14 - 5.80 10*6/mm3 07/11/2025 4:40 AM EDT [facility] Hemoglobin 9.5(L) 13.0 - 17.7 g/dL 07/11/2025 4:40 AM EDT [facility] Hematocrit 31.1(L) 37.5 - 51.0 % 07/11/2025 4:40 AM EDT [facility] MCV 78.5(L) 79.0 - 97.0 fL 07/11/2025 4:40 AM EDT [facility] MCH 24.0(L) 26.6 - 33.0 pg 07/11/2025 4:40 AM EDT [facility] MCHC 30.5(L) 31.5 - 35.7 g/dL 07/11/2025 4:40 AM EDT [facility] RDW 19.2(H) 12.3 - 15.4 % 07/11/2025 4:40 AM EDT [facility] RDW-SD 54.0 37.0 - 54.0 fl 07/11/2025 4:40 AM EDT [facility] MPV 9.1 6.0 - 12.0 fL 07/11/2025 4:40 AM EDT [facility] Platelets 255 140 - 450 10*3/mm3 07/11/2025 4:40 AM EDT [facility] Blood Venipuncture / Unknown 07/11/2025 4:23 AM EDT 07/11/2025 4:36 AM EDT us Gigi Alcantara MD LAB BLOOD ORDERABLES Final R esult [facility]
[address] [place] [address], * (ABNORMAL) Basic Metabolic Panel (07/11/2025 4:23 AM EDT) [facility] Glucose 133(H) 65 - 99 mg/dL 07/11/2025 5:27 AM EDT [facility] BUN 26.6(H) 8.0 - 23.0 mg/dL 07/11/2025 5:27 AM EDT [facility] Creatinine 1.09 0.76 - 1.27 mg/dL 07/11/2025 5:27 AM EDT [facility] Sodium 135(L) 136 - 145 mmol/L 07/11/2025 5:27 AM EDT [facility] Potassium 6.2(HH) 3.5 - 5.2 mmol/L 07/11/2025 5:27 AM EDT [facility] Chloride 104 98 - 107 mmol/L 07/11/2025 5:27 AM EDT [facility] CO2 22.0 22.0 - 29.0 mmol/L 07/11/2025 5:27 AM EDT [facility] Calcium 8.7 8.6 - 10.5 mg/dL 07/11/2025 5:27 AM T [facility] BUN/Creatinine Ratio 24.4 7.0 - 25.0 07/11/2025 5:27 AM EDT [facility] Anion Gap 9.0 5.0 - 15.0 mmol/L 07/11/2025 5:27 AM EDT [facility] eGFR 72.6 >60.0 mL/min/1.7 3 07/11/2025 5:27 AM [facility] Blood Venipuncture / Unknown 07/11/2025 4:23 AM EDT 07/11/2025 4:35 AM EDT [facility] - 07/11/2025 5:27 AM EDT GFR [...] Final R esult Performing Organization Address City/[facility] Co de Phone Number [facility]
[address] [place] [address], * (ABNORMAL) POC Glucose Once (07/10/2025 7:39 PM EDT) Glucose 150(H) 70 - 130 mg/dL 07/10/2025 7:42 PM EDT [facility] Comment:Serial Number: [id number]: [id number] Blood 07/10/2025 7:39 PM EDT 07/10/2025 7:42 PM EDT Gigi Alcantara MD POINT OF CARE TEST ORDERABLE S Final Result Performing Organization Address [facility] System [facility] de Phone Number [facility]
[address] [place] [address], * Telemetry Scan (07/10/2025 7:34 PM EDT) [facility] ECG ORDERABLES Final Result * POC Glucose Once (07/10/2025 4:49 PM EDT) Glucose 130 70 - 130 mg/dL 07/10/2025 5:02 PM EDT [facility] Comment:Serial Number: [id number]: [id number] Blood 07/10/2025 4:49 PM EDT 07/10/2025 5:02 PM EDT Gigi Alcantara MD POINT OF CARE TEST ORDERABLE S Final Result Performing Organization Address [facility] Co de Phone Number [facility]
[address] [place] [address], * (ABNORMAL) POC Glucose Once (07/10/2025 11:53 AM EDT) Glucose 237(H) 70 - 130 mg/dL 07/10/2025 11:55 AM EDT [facility] Comment:Serial Number: [id number]: [id number] Blood 07/10/2025 11:5 3 AM EDT 07/10/2025 11:55 AM EDT Gigi Alcantara MD POINT OF CARE TEST ORDERABLE S Final Result Performing Organization Address [facility] Co de Phone Number [facility]
[address] [place] [address], * POC Glucose Once (07/10/2025 7:27 AM EDT) Glucose 82 70 - 130 mg/dL 07/10/2025 7:29 AM EDT [facility] Comment:Serial Number: [id number]: [id number] Blood 07/10/2025 7:27 AM EDT 07/10/2025 7:29 AM EDT Gigi Alcantara MD POINT OF CARE TEST ORDERABLE S Final Result Performing Organization Address [facility] Co de Phone Number [facility]
[address] [place] [address], * (ABNORMAL) POC Glucose Once (07/09/2025 7:41 PM EDT) Glucose 133(H) 70 - 130 mg/dL 07/09/2025 7:56 PM EDT [facility] Comment:Serial Number: [id number]: [id number] Blood 07/09/2025 7:41 PM EDT 07/09/2025 7:56 PM EDT Gigi Alcantara MD POINT OF CARE TEST ORDERABLE S Final Result Performing Organization Address City/[facility]/ZIP Co de Phone Number [facility]
[address] [place] [address], * POC Glucose Once (07/09/2025 4:39 PM EDT) Glucose 92 70 - 130 mg/dL 07/09/2025 4:41 PM EDT [facility] Comment:Serial Number: [id number]: [id number] Blood 07/09/2025 4:39 PM EDT 07/09/2025 4:41 PM EDT us Gigi Alcantara MD POINT OF CARE TEST ORDERABLE S Final Result Performing Organization Address [facility] Co de Phone Number [facility]
[address] [place] [address], * POC Glucose Once (07/09/2025 11:12 AM EDT) Glucose 130 70 - 130 mg/dL 07/09/2025 11:14 AM EDT [facility] Comment:Serial Number: [id number]: [id number] Blood 07/09/2025 11:1 2 AM EDT 07/09/2025 11:14 AM EDT us Gigi Alcantara MD POINT OF CARE TEST ORDERABLE S Final Result [facility]
[address] [place] [address], * POC Glucose Once (07/09/2025 8:02 AM EDT) Glucose 81 70 - 130 mg/dL 07/09/2025 8:04 AM EDT [facility] Comment:Serial Number: [id number]: [id number] Blood 07/09/2025 8:02 AM EDT 07/09/2025 8:04 AM EDT Gigi Alcantara MD POINT OF CARE TEST ORDERABLE S Final Result [facility]
[address] [place] [address], * (ABNORMAL) POC Glucose Once (07/09/2025 7:46 AM EDT) Glucose 63(L) 70 - 130 mg/dL 07/09/2025 7:48 AM EDT [facility] Comment:Serial Number: [id number]: [id number] Blood 07/09/2025 7:46 AM EDT 07/09/2025 7:48 AM EDT Gigi Alcantara MD POINT OF CARE TEST ORDERABLE S Final Result [facility]
[address] [place] [address], * (ABNORMAL) POC Glucose Once (07/09/2025 7:39 AM EDT) Glucose 55(L) 70 - 130 mg/dL 07/09/2025 7:41 AM EDT [facility] Comment:Serial Number: [id number]: [id number] Blood 07/09/2025 7:39 AM EDT 07/09/2025 7:41 AM EDT Gigi Alcantara MD POINT OF CARE TEST ORDERABLE S Final Result Performing Organization Address [facility] de Phone Number [facility]
[address] [place] [address], * (ABNORMAL) POC Glucose Once (07/09/2025 7:15 AM EDT) Glucose 53(L) 70 - 130 mg/dL 07/09/2025 7:17 AM EDT [facility] Comment:Serial Number: [id number]: [id number] Blood 07/09/2025 7:15 AM EDT 07/09/2025 7:17 AM EDT Gigi Alcantara MD POINT OF CARE TEST ORDERABLE S Final Result Performing Organization Address [facility] de Phone Number [facility]
[address] [place] [address], * Magnesium (07/09/2025 7:12 AM EDT) Magnesium 2.1 1.6 - 2.4 mg/dL 07/09/2025 7:58 AM EDT [facility] Blood Venipuncture / Unknown 07/09/2025 7:12 AM EDT 07/09/2025 7:27 AM EDT Gigi Alcantara MD LAB BLOOD ORDERABLES Final R esult Performing Organization Address [facility] de Phone Number [facility]
[address] [place] [address], * (ABNORMAL) CBC (No Diff) (07/09/2025 7:12 AM EDT) WBC 9.80 3.40 - 10.80 10*3/mm3 07/09/2025 7:33 AM EDT [facility] RBC 3.94(L) 4.14 - 5.80 10*6/mm3 07/09/2025 7:33 AM EDT [facility] Hemoglobin 9.5(L) 13.0 - 17.7 g/dL 07/09/2025 7:33 AM EDT [facility] Hematocrit 30.7(L) 37.5 - 51.0 % 07/09/2025 7:33 AM EDT [facility] MCV 77.9(L) 79.0 - 97.0 fL 07/09/2025 7:33 AM EDT [facility] MCH 24.1(L) 26.6 - 33.0 pg 07/09/2025 7:33 AM EDT [facility] MCHC 30.9(L) 31.5 - 35.7 g/dL 07/09/2025 7:33 AM EDT [facility] RDW 18.8(H) 12.3 - 15.4 % 07/09/2025 7:33 AM EDT [facility] RDW-SD 51.2 37.0 - 54.0 fl 07/09/2025 7:33 AM EDT [facility] MPV 8.8 6.0 - 12.0 fL 07/09/2025 7:33 AM EDT [facility] Platelets 278 140 - 450 10*3/mm3 07/09/2025 7:33 AM EDT [facility] Blood Venipuncture / Unknown 07/09/2025 7:12 AM EDT 07/09/2025 7:27 AM EDT us Law Castro PharmD LAB BLOOD ORDERABLES Final Re sult [facility]
[address] [place] [address], * (ABNORMAL) Basic Metabolic Panel (07/09/2025 7:12 AM EDT) [facility] Glucose 53(L) 65 - 99 mg/dL 07/09/2025 7:58 AM EDT [facility] BUN 21.6 8.0 - 23.0 mg/dL 07/09/2025 7:58 AM T [facility] Creatinine 1.05 0.76 - 1.27 mg/dL 07/09/2025 7:58 AM EDT [facility] Sodium 136 136 - 145 mmol/L 07/09/2025 7:58 AM EDT [facility] Potassium 5.8(H) 3.5 - 5.2 mmol/L 07/09/2025 7:58 AM EDT [facility] Chloride 106 98 - 107 mmol/L 07/09/2025 7:58 AM EDT [facility] CO2 21.8(L) 22.0 - 29.0 mmol/L 07/09/2025 7:58 AM EDT [facility] Calcium 8.7 8.6 - 10.5 mg/dL 07/09/2025 7:58 AM EDT [facility] BUN/Creatinine Ratio 20.6 7.0 - 25.0 07/09/2025 7:58 AM T [facility] Anion Gap 8.2 5.0 - 15.0 mmol/L 07/09/2025 7:58 AM [facility] eGFR 75.9 >60.0 mL/min/1.7 3 07/09/2025 7:58 AM T [facility] Blood Venipuncture / Unknown 07/09/2025 7:12 AM EDT 07/09/2025 7:27 AM EDT [facility] - 07/09/2025 7:58 AM EDT [...] not include race as a factor Law Watersi PharmD LAB BLOOD ORDERABLES Final Re sult Performing Organization Address City/[facility]/ZIP Co de Phone Number [facility]
[address] [place] [address], * (ABNORMAL) Vancomycin, Trough (07/09/2025 7:12 AM EDT) Vancomycin Trough 31.40(HH) 5.00 - 20.00 mcg/mL 07/09/2025 8:03 AM EDT [facility] Blood Venipuncture / Unknown 07/09/2025 7:12 AM EDT 07/09/2025 7:27 AM EDT Narrative [facility] - 07/09/2025 8:03 AM EDT Therapeutic Ranges for Vancomycin Vancomycin Random 5.0-40.0 mcg/mL Vancomycin Trough 5.0-20.0 mcg/mL Vancomycin Peak 20.0-40.0 mcg/mL Law Watersi PharmD LAB BLOOD ORDERABLES Final Re sult Performing Organization Address [facility] Co de Phone Number [facility]
[address] [place] [address], * POC Glucose Once (07/08/2025 8:39 PM EDT) Glucose 128 70 - 130 mg/dL 07/08/2025 8:41 PM EDT [facility] Comment:Serial Number: [id number]: [id number] Blood 07/08/2025 8:39 PM EDT 07/08/2025 8:41 PM EDT Gigi Alcantara MD POINT OF CARE TEST ORDERABLE S Final Result Performing Organization Address City/[facility]/ZIP Co de Phone Number [facility]
[address] [place] [address], * (ABNORMAL) POC Glucose Once (07/08/2025 4:38 PM EDT) Glucose 142(H) 70 - 130 mg/dL 07/08/2025 4:41 PM EDT [facility] Comment:Serial Number: [id number]: [id number] Blood 07/08/2025 4:38 PM EDT 07/08/2025 4:41 PM EDT Gigi Alcantara MD POINT OF CARE TEST ORDERABLE S Final Result Performing Organization Address City/[facility]/ZIP Co de Phone Number [facility]
[address] [place] [address], * (ABNORMAL) Basic Metabolic Panel (07/08/2025 2:18 PM EDT) Glucose 89 65 - 99 mg/dL 07/08/2025 2:58 PM EDT [facility] BUN 18.7 8.0 - 23.0 mg/dL 07/08/2025 2:58 PM EDT [facility] Creatinine 0.91 0.76 - 1.27 mg/dL 07/08/2025 2:58 PM EDT [facility] Sodium 136 136 - 145 mmol/L 07/08/2025 2:58 PM EDT [facility] Potassium 5.9(H) 3.5 - 5.2 mmol/L 07/08/2025 2:58 PM EDT [facility] Chloride 104 98 - 107 mmol/L 07/08/2025 2:58 PM EDT [facility] CO2 21.1(L) 22.0 - 29.0 mmol/L 07/08/2025 2:58 PM EDT [facility] Calcium 8.8 8.6 - 10.5 mg/dL 07/08/2025 2:58 PM EDT [facility] BUN/Creatinine Ratio 20.5 7.0 - 25.0 07/08/2025 2:58 PM EDT [facility] Anion Gap 10.9 5.0 - 15.0 mmol/L 07/08/2025 2:58 PM EDT [facility] eGFR 90.1 >60.0 mL/min/1.7 3 07/08/2025 2:58 PM EDT [facility] Blood Venipuncture / Unknown 07/08/2025 2:18 PM EDT 07/08/2025 2:33 PM EDT Narrative [facility] - 07/08/2025 2:58 PM EDT GFR [...] MD LAB BLOOD ORDERABLES Final R esult [facility]
[address] [place] [address], * POC Glucose Once (07/08/2025 12:12 PM EDT) Glucose 108 70 - 130 mg/dL 07/08/2025 12:14 PM EDT [facility] Comment:Serial Number: [id number]: [id number] Blood 07/08/2025 12:1 2 PM EDT 07/08/2025 12:14 PM EDT Gigi Alcantara MD POINT OF CARE TEST ORDERABLE S Final Result Performing Organization Address City/[facility] de Phone Number [facility]
[address] [place] [address], * POC Glucose Once (07/08/2025 7:50 AM EDT) Pathologist [facility] Glucose 103 70 - 130 mg/dL 07/08/2025 7:52 AM EDT [facility] Comment:Serial Number: [id number]: [id number] Blood 07/08/2025 7:50 AM EDT 07/08/2025 7:52 AM EDT Gigi Alcantara MD POINT OF CARE TEST ORDERABLE S Final Result Performing Organization Address [facility] de Phone Number [facility]
[address] [place] [address], * Magnesium (07/08/2025 5:42 AM EDT) Pathologist [facility] Magnesium 2.2 1.6 - 2.4 mg/dL 07/08/2025 8:25 AM EDT [facility] Blood Venipuncture / Unknown 07/08/2025 5:42 AM EDT 07/08/2025 7:57 AM EDT Gigi Alcantara MD LAB BLOOD ORDERABLES Final R esult Performing Organization Address [facility] Co de Phone Number [facility]
[address] [place] [address], * (ABNORMAL) CBC (No Diff) (07/08/2025 5:42 AM EDT) WBC 7.37 3.40 - 10.80 10*3/mm3 07/08/2025 8:06 AM EDT [facility] RBC 4.19 4.14 - 5.80 10*6/mm3 07/08/2025 8:06 AM EDT [facility] Hemoglobin 9.7(L) 13.0 - 17.7 g/dL 07/08/2025 8:06 AM EDT [facility] Hematocrit 35.5(L) 37.5 - 51.0 % 07/08/2025 8:06 AM EDT [facility] MCV 84.7 79.0 - 97.0 fL 07/08/2025 8:06 AM EDT [facility] MCH 23.2(L) 26.6 - 33.0 pg 07/08/2025 8:06 AM EDT [facility] MCHC 27.3(L) 31.5 - 35.7 g/dL 07/08/2025 8:06 AM EDT [facility] RDW 18.8(H) 12.3 - 15.4 % 07/08/2025 8:06 AM EDT [facility] RDW-SD 55.9(H) 37.0 - 54.0 fl 07/08/2025 8:06 AM EDT [facility] MPV 9.7 6.0 - 12.0 fL 07/08/2025 8:06 AM EDT [facility] Platelets 281 140 - 450 10*3/mm3 07/08/2025 8:06 AM T [facility] Blood Venipuncture / Unknown 07/08/2025 5:42 AM EDT 07/08/2025 7:57 AM EDT Gigi Alcantara MD LAB BLOOD ORDERABLES Final R esult [facility]
[address] [place] [address], * (ABNORMAL) Basic Metabolic Panel (07/08/2025 5:42 AM EDT) Glucose 120(H) 65 - 99 mg/dL 07/08/2025 8:25 AM EDT [facility] BUN 19.5 8.0 - 23.0 mg/dL 07/08/2025 8:25 AM T [facility] Creatinine 0.94 0.76 - 1.27 mg/dL 07/08/2025 8:25 AM [facility] Sodium 131(L) 136 - 145 mmol/L 07/08/2025 8:25 AM T [facility] Potassium 6.0(H) 3.5 - 5.2 mmol/L 07/08/2025 8:25 AM [facility] Comment:Specimen hemolyzed. Result may be falsely elevated. Chloride 104 98 - 107 mmol/L 07/08/2025 8:25 AM EDT [facility] CO2 17.4(L) 22.0 - 29.0 mmol/L 07/08/2025 8:25 AM [facility] Calcium 8.5(L) 8.6 - 10.5 mg/dL 07/08/2025 8:25 AM [facility] BUN/Creatinine Ratio 20.7 7.0 - 25.0 07/08/2025 8:25 AM [facility] Anion Gap 9.6 5.0 - 15.0 mmol/L 07/08/2025 8:25 AM [facility] eGFR 86.7 >60.0 mL/min/1.7 3 07/08/2025 8:25 AM [facility] Blood Venipuncture / Unknown 07/08/2025 5:42 AM EDT 07/08/2025 7:57 AM T [facility] - 07/08/2025 8:25 AM EDT [...] Final Resul t Performing Organization Address City/[facility] Co de Phone Number [facility]
[address] [place] [address], * (ABNORMAL) POC Glucose Once (07/07/2025 7:12 PM EDT) Glucose 135(H) 70 - 130 mg/dL 07/07/2025 7:15 PM EDT [facility] Comment:Serial Number: [id number]: [id number] Blood 07/07/2025 7:12 PM EDT 07/07/2025 7:15 PM EDT Gigi Alcantara MD POINT OF CARE TEST ORDERABLE S Final Result Performing Organization Address [facility] Co de Phone Number [facility]
[address] [place] [address], * (ABNORMAL) POC Glucose Once (07/07/2025 4:30 PM EDT) Glucose 163(H) 70 - 130 mg/dL 07/07/2025 4:32 PM EDT [facility] Comment:Serial Number: [id number]: [id number] Blood 07/07/2025 4:30 PM EDT 07/07/2025 4:32 PM EDT Gigi Alcantara MD POINT OF CARE TEST ORDERABLE S Final Result Performing Organization Address City/[facility] Co de Phone Number [facility]
[address] [place] [address], * (ABNORMAL) POC Glucose Once (07/07/2025 11:50 AM EDT) Glucose 135(H) 70 - 130 mg/dL 07/07/2025 11:53 AM EDT [facility] Comment:Serial Number: [id number]: [id number] Blood 07/07/2025 11:5 0 AM EDT 07/07/2025 11:53 AM EDT Gigi Alcantara MD POINT OF CARE TEST ORDERABLE S Final Result Performing Organization Address City/[facility]/ZIP Co de Phone Number [facility]
[address] [place] [address], * POC Glucose Once (07/07/2025 7:34 AM EDT) Glucose 108 70 - 130 mg/dL 07/07/2025 7:37 AM EDT [facility] Comment:Serial Number: [id number]: [id number] Blood 07/07/2025 7:34 AM EDT 07/07/2025 7:37 AM EDT Gigi Alcantara MD POINT OF CARE TEST ORDERABLE S Final Result Performing Organization Address [facility] Co de Phone Number [facility]
[address] [place] [address], * Magnesium (07/07/2025 3:43 AM EDT) Magnesium 2.0 1.6 - 2.4 mg/dL 07/07/2025 4:50 AM EDT [facility] Blood Venipuncture / Unknown 07/07/2025 3:43 AM EDT 07/07/2025 4:05 AM EDT Gigi Alcantara MD LAB BLOOD ORDERABLES Final R esult Performing Organization Address City/[facility]/ZIP Co de Phone Number [facility]
[address] [place] [address], * (ABNORMAL) CBC (No Diff) (07/07/2025 3:43 AM EDT) WBC 7.72 3.40 - 10.80 10*3/mm3 07/07/2025 4:32 AM EDT [facility] RBC 3.91(L) 4.14 - 5.80 10*6/mm3 07/07/2025 4:32 AM EDT [facility] Hemoglobin 9.3(L) 13.0 - 17.7 g/dL 07/07/2025 4:32 AM EDT [facility] Hematocrit 30.9(L) 37.5 - 51.0 % 07/07/2025 4:32 AM EDT [facility] MCV 79.0 79.0 - 97.0 fL 07/07/2025 4:32 AM EDT [facility] MCH 23.8(L) 26.6 - 33.0 pg 07/07/2025 4:32 AM EDT [facility] MCHC 30.1(L) 31.5 - 35.7 g/dL 07/07/2025 4:32 AM EDT [facility] RDW 18.5(H) 12.3 - 15.4 % 07/07/2025 4:32 AM EDT [facility] RDW-SD 50.7 37.0 - 54.0 fl 07/07/2025 4:32 AM EDT [facility] MPV 9.0 6.0 - 12.0 fL 07/07/2025 4:32 AM EDT [facility] Platelets 275 140 - 450 10*3/mm3 07/07/2025 4:32 AM EDT [facility] Blood Venipuncture / Unknown 07/07/2025 3:43 AM EDT 07/07/2025 4:03 AM EDT us Gigi Alcantara MD LAB BLOOD ORDERABLES Final R esult [facility]
[address] [place] [address], * (ABNORMAL) Basic Metabolic Panel (07/07/2025 3:43 AM EDT) Glucose 171(H) 65 - 99 mg/dL 07/07/2025 4:50 AM EDT [facility] BUN 18.3 8.0 - 23.0 mg/dL 07/07/2025 4:50 AM EDT [facility] Creatinine 1.02 0.76 - 1.27 mg/dL 07/07/2025 4:50 AM EDT [facility] Sodium 134(L) 136 - 145 mmol/L 07/07/2025 4:50 AM EDT [facility] Potassium 5.2 3.5 - 5.2 mmol/L 07/07/2025 4:50 AM EDT [facility] Chloride 101 98 - 107 mmol/L 07/07/2025 4:50 AM EDT [facility] CO2 22.2 22.0 - 29.0 mmol/L 07/07/2025 4:50 AM EDT [facility] Calcium 8.6 8.6 - 10.5 mg/dL 07/07/2025 4:50 AM EDT [facility] BUN/Creatinine Ratio 17.9 7.0 - 25.0 07/07/2025 4:50 AM EDT [facility] Anion Gap 10.8 5.0 - 15.0 mmol/L 07/07/2025 4:50 AM EDT [facility] eGFR 78.6 >60.0 mL/min/1.7 3 07/07/2025 4:50 AM EDT [facility] Blood Venipuncture / Unknown 07/07/2025 3:43 AM EDT 07/07/2025 4:05 AM EDT [facility] - 07/07/2025 4:50 AM EDT GFR [...] Final Resul t Performing Organization Address City/[facility] Co de Phone Number [facility]
[address] [place] [address], * (ABNORMAL) POC Glucose Once (07/06/2025 7:31 PM EDT) Glucose 147(H) 70 - 130 mg/dL 07/06/2025 7:33 PM EDT [facility] Comment:Serial Number: [id number]: [id number] Nova Comment 1 Notified Patients RN 07/06/2025 7:33 PM EDT [facility] Nova Comment 2 Follow unit protocol 07/06/2025 7:33 PM EDT [facility] Blood 07/06/2025 7:31 PM EDT 07/06/2025 7:33 PM EDT Gigi Alcantara MD POINT OF CARE TEST ORDERABLE S Final Result Performing Organization Address City/[facility] Co de Phone Number [facility]
[address] [place] [address], * (ABNORMAL) POC Glucose Once (07/06/2025 5:19 PM EDT) Glucose 137(H) 70 - 130 mg/dL 07/06/2025 5:22 PM EDT [facility] Comment:Serial Number: [id number]: [id number] Blood 07/06/2025 5:19 PM EDT 07/06/2025 5:22 PM EDT Gigi Alcantara MD POINT OF CARE TEST ORDERABLE S Final Result Performing Organization Address City/[facility] Co de Phone Number [facility]
[address] [place] [address], * POC Glucose Once (07/06/2025 4:27 PM EDT) Glucose 85 70 - 130 mg/dL 07/06/2025 4:29 PM EDT [facility] Comment:Serial Number: [id number]: [id number] Blood 07/06/2025 4:27 PM EDT 07/06/2025 4:29 PM EDT Gigi Alcantara MD POINT OF CARE TEST ORDERABLE S Final Result Performing Organization Address [facility] Co de Phone Number [facility]
[address] [place] [address], * POC Glucose Once (07/06/2025 3:26 PM EDT) Glucose 116 70 - 130 mg/dL 07/06/2025 3:28 PM EDT [facility] Comment:Serial Number: [id number]: [id number] Blood 07/06/2025 3:26 PM EDT 07/06/2025 3:28 PM EDT Gigi Alcantara MD POINT OF CARE TEST ORDERABLE S Final Result Performing Organization Address [facility] Co de Phone Number [facility]
[address] [place] [address], [place] [phone] * ECG 12 Lead Electrolyte Imbalance (07/06/2025 3:14 PM EDT) QT Interval 402 ms BH ECG QTC Interval 427 ms ECG 07/06/2025 [...] ORDERABLES Final Result Performing Organization Address City/[facility] Co de Phone Number ECG * Magnesium (07/06/2025 12:46 PM EDT) Magnesium 2.1 1.6 - 2.4 mg/dL 07/06/2025 2:27 PM EDT [facility] Blood Venipuncture / Unknown 07/06/2025 12:46 PM EDT 07/06/2025 1:36 PM EDT Gigi Alcantara MD LAB BLOOD ORDERABLES Final R esult Performing Organization Address City/[facility]/ZIP Co de Phone Number [facility]
[address] [place] [address], [place] [phone] * (ABNORMAL) CBC (No Diff) (07/06/2025 12:46 PM EDT) WBC 8.43 3.40 - 10.80 10*3/mm3 07/06/2025 1:44 PM EDT [facility] RBC 4.00(L) 4.14 - 5.80 10*6/mm3 07/06/2025 1:44 PM EDT [facility] Hemoglobin 9.5(L) 13.0 - 17.7 g/dL 07/06/2025 1:44 PM EDT [facility] Hematocrit 31.1(L) 37.5 - 51.0 % 07/06/2025 1:44 PM EDT [facility] MCV 77.8(L) 79.0 - 97.0 fL 07/06/2025 1:44 PM EDT [facility] MCH 23.8(L) 26.6 - 33.0 pg 07/06/2025 1:44 PM EDT [facility] MCHC 30.5(L) 31.5 - 35.7 g/dL 07/06/2025 1:44 PM EDT [facility] RDW 18.2(H) 12.3 - 15.4 % 07/06/2025 1:44 PM EDT [facility] RDW-SD 49.7 37.0 - 54.0 fl 07/06/2025 1:44 PM EDT [facility] MPV 9.2 6.0 - 12.0 fL 07/06/2025 1:44 PM EDT [facility] Platelets 300 140 - 450 10*3/mm3 07/06/2025 1:44 PM EDT [facility] Blood Venipuncture / Unknown 07/06/2025 12:46 PM EDT 07/06/2025 1:35 PM EDT us Gigi Alcantara MD LAB BLOOD ORDERABLES Final R esult [facility]
[address] [place] [address], * (ABNORMAL) Basic Metabolic Panel (07/06/2025 12:46 PM EDT) [facility] Glucose 119(H) 65 - 99 mg/dL 07/06/2025 2:27 PM EDT [facility] BUN 16.5 8.0 - 23.0 mg/dL 07/06/2025 2:27 PM EDT [facility] Creatinine 1.02 0.76 - 1.27 mg/dL 07/06/2025 2:27 PM EDT [facility] Sodium 134(L) 136 - 145 mmol/L 07/06/2025 2:27 PM EDT [facility] Potassium 6.2(HH) 3.5 - 5.2 mmol/L 07/06/2025 2:27 PM EDT [facility] Chloride 103 98 - 107 mmol/L 07/06/2025 2:27 PM EDT [facility] CO2 23.9 22.0 - 29.0 mmol/L 07/06/2025 2:27 PM EDT [facility] Calcium 8.5(L) 8.6 - 10.5 mg/dL 07/06/2025 2:27 PM EDT [facility] BUN/Creatinine Ratio 16.2 7.0 - 25.0 07/06/2025 2:27 PM EDT [facility] Anion Gap 7.1 5.0 - 15.0 mmol/L 07/06/2025 2:27 PM EDT [facility] eGFR 78.6 >60.0 mL/min/1.7 3 07/06/2025 2:27 PM T [facility] Blood Venipuncture / Unknown 07/06/2025 12:46 PM EDT 07/06/2025 1:36 PM EDT [facility] - 07/06/2025 2:27 PM EDT GFR [...] ORDERABLES Final Resul t Performing Organization Address [facility] de Phone Number [facility]
[address] [place] [address], * POC Glucose Once (07/06/2025 11:37 AM EDT) Glucose 125 70 - 130 mg/dL 07/06/2025 11:39 AM EDT [facility] Comment:Serial Number: [id number]: [id number] Blood 07/06/2025 11:3 7 AM EDT 07/06/2025 11:39 AM EDT Gigi Alcantara MD POINT OF CARE TEST ORDERABLE S Final Result Performing Organization Address [facility] de Phone Number [facility]
[address] [place] [address], * (ABNORMAL) POC Glucose Once (07/06/2025 7:19 AM EDT) Glucose 134(H) 70 - 130 mg/dL 07/06/2025 7:21 AM EDT [facility] Comment:Serial Number: [id number]: [id number] Blood 07/06/2025 7:19 AM EDT 07/06/2025 7:21 AM EDT us Gigi Alcantara MD POINT OF CARE TEST ORDERABLE S Final Result Performing Organization Address [facility]/ZIP Co de Phone Number [facility]
[address] [place] [address], * (ABNORMAL) POC Glucose Once (07/05/2025 7:54 PM EDT) Glucose 144(H) 70 - 130 mg/dL 07/05/2025 7:56 PM EDT [facility] Comment:Serial Number: [id number]: [id number] Blood 07/05/2025 7:54 PM EDT 07/05/2025 7:56 PM EDT Gigi Alcantara MD POINT OF CARE TEST ORDERABLE S Final Result Performing Organization Address City/[facility]/ZIP Co de Phone Number [facility]
[address] [place] [address], * (ABNORMAL) POC Glucose Once (07/05/2025 4:45 PM EDT) Glucose 143(H) 70 - 130 mg/dL 07/05/2025 4:47 PM EDT [facility] Comment:Serial Number: [id number]: [id number] Blood 07/05/2025 4:45 PM EDT 07/05/2025 4:47 PM EDT Gigi Alcantara MD POINT OF CARE TEST ORDERABLE S Final Result [facility]
[address] [place] [address], * (ABNORMAL) POC Glucose Once (07/05/2025 12:26 PM EDT) Glucose 161(H) 70 - 130 mg/dL 07/05/2025 12:28 PM EDT [facility] Comment:Serial Number: [id number]: [id number] Blood 07/05/2025 12:2 6 PM EDT 07/05/2025 12:28 PM EDT Gigi Alcantara MD POINT OF CARE TEST ORDERABLE S Final Result Performing Organization Address [facility] Co de Phone Number [facility]
[address] [place] [address], * (ABNORMAL) POC Glucose Once (07/05/2025 7:25 AM EDT) Glucose 141(H) 70 - 130 mg/dL 07/05/2025 7:27 AM EDT [facility] Comment:Serial Number: [id number]: [id number] Blood 07/05/2025 7:25 AM EDT 07/05/2025 7:27 AM EDT Gigi Alcantara MD POINT OF CARE TEST ORDERABLE S Final Result Performing Organization Address [facility] de Phone Number [facility]
[address] [place] [address], * (ABNORMAL) Basic Metabolic Panel (07/05/2025 4:34 AM EDT) Glucose 142(H) 65 - 99 mg/dL 07/05/2025 5:08 AM EDT [facility] BUN 14.0 8.0 - 23.0 mg/dL 07/05/2025 5:08 AM EDT [facility] Creatinine 0.83 0.76 - 1.27 mg/dL 07/05/2025 5:08 AM EDT [facility] Sodium 134(L) 136 - 145 mmol/L 07/05/2025 5:08 AM EDT [facility] Potassium 5.1 3.5 - 5.2 mmol/L 07/05/2025 5:08 AM EDT [facility] Chloride 102 98 - 107 mmol/L 07/05/2025 5:08 AM EDT [facility] CO2 22.9 22.0 - 29.0 mmol/L 07/05/2025 5:08 AM EDT [facility] Calcium 8.6 8.6 - 10.5 mg/dL 07/05/2025 5:08 AM EDT [facility] BUN/Creatinine Ratio 16.9 7.0 - 25.0 07/05/2025 5:08 AM EDT [facility] Anion Gap 9.1 5.0 - 15.0 mmol/L 07/05/2025 5:08 AM EDT [facility] eGFR 93.6 >60.0 mL/min/1.7 3 07/05/2025 5:08 AM EDT [facility] Blood Venipuncture / Unknown 07/05/2025 4:34 AM EDT 07/05/2025 4:45 AM EDT [facility] - 07/05/2025 5:08 AM EDT [...] race as a factor us Vaughn S Darrick DO LAB BLOOD ORDERABLES Final Resul t [facility]
[address] [place] [address], * (ABNORMAL) POC Glucose Once (07/04/2025 8:13 PM EDT) Glucose 239(H) 70 - 130 mg/dL 07/04/2025 8:15 PM EDT [facility] Comment:Serial Number: [id number]: [id number] Blood 07/04/2025 8:13 PM EDT 07/04/2025 8:15 PM EDT Gigi Alcantara MD POINT OF CARE TEST ORDERABLE S Final Result Performing Organization Address [facility]/ZIP Co de Phone Number [facility]
[address] [place] [address], * (ABNORMAL) POC Glucose Once (07/04/2025 4:46 PM EDT) Glucose 167(H) 70 - 130 mg/dL 07/04/2025 4:47 PM EDT [facility] Comment:Serial Number: [id number]: [id number] Blood 07/04/2025 4:46 PM EDT 07/04/2025 4:47 PM EDT Gigi Alcantara MD POINT OF CARE TEST ORDERABLE S Final Result Performing Organization Address [facility] Co de Phone Number [facility]
[address] [place] [address], * POC Glucose Once (07/04/2025 12:03 PM EDT) Glucose 86 70 - 130 mg/dL 07/04/2025 12:05 PM EDT [facility] Comment:Serial Number: [id number]: [id number] Blood 07/04/2025 12:0 3 PM EDT 07/04/2025 12:05 PM EDT Gigi Alcantara MD POINT OF CARE TEST ORDERABLE S Final Result Performing Organization Address City/[facility] Co de Phone Number [facility]
[address] [place] [address], * POC Glucose Once (07/04/2025 7:32 AM EDT) Glucose 99 70 - 130 mg/dL 07/04/2025 7:34 AM EDT [facility] Comment:Serial Number: [id number]: [id number] Blood 07/04/2025 7:32 AM EDT 07/04/2025 7:34 AM EDT Gigi Alcantara MD POINT OF CARE TEST ORDERABLE S Final Result [facility]
[address] [place] [address], * EEG AWAKE OR DROWSY PORTABLE (07/04/2025 7:10 AM EDT) Impressions NEUROLOGY - 07/04/2025 8:24 AM EDT Diffuse cerebral dysfunction of mild degree, nonspecific but most commonly seen due to toxic/metabolic cause Left arm tremoring is nonepileptic This report is transcribed using the [employer] dictation system. Narrative NEUROLOGY - 07/04/2025 8:24 [...] * (ABNORMAL) Potassium (07/04/2025 6:15 AM EDT) Potassium 5.9(H) 3.5 - 5.2 mmol/L 07/04/2025 7:23 AM EDT [facility] Blood Venipuncture / Unknown 07/04/2025 6:15 AM EDT 07/04/2025 6:57 AM EDT Melaniepantera Andrew APRN LAB BLOOD ORDERABLES Final Re sult [facility]
[address] [place] [address], * ECG 12 Lead Electrolyte Imbalance (07/04/2025 [...] By: Confirmed By: Benitez Eller Melanie Andrew CONSTRUCTION COST ESTIMATOR ECG ORDERABLES Final Result Performing Organization Address City/[facility]/ZIP Co de Phone Number ECG * Vancomycin, Random (07/04/2025 3:47 AM EDT) Vancomycin Random 28.30 5.00 - 40.00 mcg/mL 07/04/2025 7:48 AM EDT [facility] Blood Venipuncture / Unknown 07/04/2025 3:47 AM EDT 07/04/2025 4:07 AM EDT [facility] - 07/04/2025 7:48 AM EDT Therapeutic Ranges for Vancomycin Vancomycin Random 5.0-40.0 mcg/mL Vancomycin Trough 5.0-20.0 mcg/mL Vancomycin Peak 20.0-40.0 mcg/mL Osmany Mccann [facility] LAB BLOOD ORDERABLES Final Result [facility]
[address] [place] [address], [place] [phone] * (ABNORMAL) CBC Auto Differential (07/04/2025 3:47 AM EDT) WBC 8.21 3.40 - 10.80 10*3/mm3 07/04/2025 4:15 AM EDT [facility] RBC 4.03(L) 4.14 - 5.80 10*6/mm3 07/04/2025 4:[facility] Hemoglobin 9.3(L) 13.0 - 17.7 g/dL 07/04/2025 4:15 [facility] Hematocrit 31.1(L) 37.5 - 51.0 % 07/04/2025 4:15 AM EDT [facility] MCV 77.2(L) 79.0 - 97.0 fL 07/04/2025 4:15 AM EDT [facility] MCH 23.1(L) 26.6 - 33.0 pg 07/04/2025 4:15 [facility] MCHC 29.9(L) 31.5 - 35.7 g/dL 07/04/2025 4:15 AM [facility] RDW 17.5(H) 12.3 - 15.4 % 07/04/2025 4:15 [facility] RDW-SD 48.1 37.0 - 54.0 fl 07/04/2025 4:15 AM [facility] MPV 9.3 6.0 - 12.0 fL 07/04/2025 4:15 [facility] Platelets 264 140 - 450 10*3/mm3 07/04/2025 4:15 AM [facility] Neutrophil % 71.4 42.7 - 76.0 % 07/04/2025 4:15 [facility] Lymphocyte % 18.6(L) 19.6 - 45.3 % 07/04/2025 4:15 AM [facility] Monocyte % 8.5 5.0 - 12.0 % 07/04/2025 4:15 [facility] Eosinophil % 0.5 0.3 - 6.2 % 07/04/2025 4:15 AM [facility] Basophil % 0.4 0.0 - 1.5 % 07/04/2025 4:15 AM EDT [facility] Immature Grans % 0.6(H) 0.0 - 0.5 % 07/04/2025 4:15 AM EDT [facility] Neutrophils, Absolute 5.86 1.70 - 7.00 10*3/mm3 07/04/2025 4:15 AM EDT [facility] Lymphocytes, Absolute 1.53 0.70 - 3.10 10*3/mm3 07/04/2025 4:15 AM EDT [facility] Monocytes, Absolute 0.70 0.10 - 0.90 10*3/mm3 07/04/2025 4:15 AM EDT [facility] Eosinophils, Absolute 0.04 0.00 - 0.40 10*3/mm3 07/04/2025 4:15 AM EDT [facility] Basophils, Absolute 0.03 0.00 - 0.20 10*3/mm3 07/04/2025 4:15 AM EDT [facility] Immature Grans, Absolute 0.05 0.00 - 0.05 10*3/mm3 07/04/2025 4:15 AM EDT [facility] nRBC 0.0 0.0 - 0.2 /100 WBC 07/04/2025 4:15 AM EDT [facility] Blood Venipuncture / Unknown 07/04/2025 3:47 AM EDT 07/04/2025 4:10 AM EDT us Francisca Franco MD LAB BLOOD ORDERABLES Final Resul t [facility]
[address] [place] [address], * (ABNORMAL) Basic Metabolic Panel (07/04/2025 3:47 AM EDT) [facility] Glucose 126(H) 65 - 99 mg/dL 07/04/2025 4:43 AM EDT [facility] BUN 14.1 8.0 - 23.0 mg/dL 07/04/2025 4:43 AM EDT [facility] Creatinine 0.78 0.76 - 1.27 mg/dL 07/04/2025 4:43 AM EDT [facility] Sodium 135(L) 136 - 145 mmol/L 07/04/2025 4:43 AM EDT [facility] Potassium 6.1(HH) 3.5 - 5.2 mmol/L 07/04/2025 4:43 AM EDT [facility] Chloride 106 98 - 107 mmol/L 07/04/2025 4:43 AM EDT [facility] CO2 21.3(L) 22.0 - 29.0 mmol/L 07/04/2025 4:43 AM EDT [facility] Calcium 8.3(L) 8.6 - 10.5 mg/dL 07/04/2025 4:43 AM EDT [facility] BUN/Creatinine Ratio 18.1 7.0 - 25.0 07/04/2025 4:43 AM EDT [facility] Anion Gap 7.7 5.0 - 15.0 mmol/L 07/04/2025 4:43 AM EDT [facility] eGFR 95.3 >60.0 mL/min/1.7 3 07/04/2025 4:43 AM T [facility] Blood Venipuncture / Unknown 07/04/2025 3:47 AM EDT 07/04/2025 4:07 AM EDT [facility] - 07/04/2025 4:43 AM EDT [...] MD LAB BLOOD ORDERABLES Final Resul t [facility]
[address] [place] [id number], * (ABNORMAL) POC Glucose Once (07/03/2025 9:02 PM EDT) Glucose 143(H) 70 - 130 mg/dL 07/03/2025 9:04 PM EDT [facility] Comment:Serial Number: [id number]: [id number] Blood 07/03/2025 9:02 PM EDT 07/03/2025 9:04 PM EDT us Kris Boston DO POINT OF CARE TEST ORDERABLES Fi nal Result Performing Organization Address [facility] Co de Phone Number [facility]
[address] [place] [address], * CT Head Without Contrast (07/03/2025 9:00 PM EDT) Anatomical Region Laterality Modality Head N/A Computed Tomogra phy 07/03/2025 9:10 PM EDT Impressions 07/03/2025 9:11 PM EDT Age-related changes of the brain as above, otherwise without evidence of acute intracranial abnormality. Electronically Signed: Ravi Swartz MD 07/03/2025 9:11 PM EDT Workstation ID: [id number] Narrative 07/03/2025 9:[address] HEAD [...] MD 07/03/2025 9:11 PM EDT Workstation ID: [id number] Francisca Franco MD IMG CT ORDERABLES Final Result * (ABNORMAL) POC Glucose Once (07/03/2025 8:13 PM EDT) [facility] Glucose 142(H) 70 - 130 mg/dL 07/03/2025 8:15 PM EDT [facility] Comment:Serial Number: [id number]: [id number] Blood 07/03/2025 8:13 PM EDT 07/03/2025 8:15 PM EDT Kris Boston DO POINT OF CARE TEST ORDERABLES Fi nal Result [facility]
[address] [place] [address], * (ABNORMAL) Blood Gas, Arterial With Co-Ox (07/03/2025 7:00 PM EDT) [facility] Site Right Radial 07/03/2025 7:00 PM EDT [facility] THERAPY Jaspreet's Test Positive 07/03/2025 7:00 PM EDT [facility] THERAPY pH, Arterial 7.362 7.350 - 7.450 pH units 07/03/2025 7:00 PM EDT [facility] THERAPY pCO2, Arterial 41.7 35.0 - 45.0 mm Hg 07/03/2025 7:00 PM EDT [facility] THERAPY pO2, Arterial 172.0(H) 83.0 - 108.0 mm Hg 07/03/2025 7:00 PM EDT [facility] THERAPY HCO3, Arterial 23.6 20.0 - 26.0 mmol/L 07/03/2025 7:00 PM EDT [facility] THERAPY Base Excess, Arterial -1.7(L) 0.0 - 2.0 mmol/L 07/03/2025 7:00 PM EDT [facility] THERAPY Hemoglobin, Blood Gas 9.9(L) 13.5 - 17.5 g/dL 07/03/2025 7:00 PM EDT [facility] THERAPY Comment:84 Value below refer ence range Hematocrit, Blood Gas 30.3(L) 38.0 - 51.0 % 07/03/2025 7:00 PM EDT [facility] THERAPY Oxyhemoglobin 98.5 94 - 99 % 07/03/2025 7:00 PM EDT [facility] THERAPY Methemoglobin 0.40 0.00 - 1.50 % 07/03/2025 7:00 PM EDT [facility] THERAPY Carboxyhemoglobin 1.1 0 - 2 % 025 7:00 PM EDT [facility] THERAPY CO2 Content 24.9 22 - 33 mmol/L 07/03/2025 7:00 PM EDT [facility] THERAPY Temperature 37.0 07/03/2025 7:00 PM EDT [facility] THERAPY Barometric Pressure for Blood Gas 07/03/2025 7:00 PM T [facility] THERAPY Comment:N/A Modality Aerosol Mask 07/03/2025 7:00 PM EDT [facility] THERAPY FIO2 60 % 07/03/2025 7:00 PM EDT [facility] THERAPY Rate 0 Breaths/ minute 07/03/2025 7:00 PM EDT [facility] THERAPY PIP 0 cmH2O 07/03/2025 7:00 PM EDT [facility] THERAPY Comment:Meter: [id number] Skates Operator: [id number] IPAP 0 07/03/2025 7:00 PM EDT [facility] THERAPY EPAP 0 07/03/2025 7:00 PM EDT [facility] THERAPY pH, Temp Corrected 7.362 pH Units 2024 7:00 PM EDT [facility] THERAPY pCO2, Temperature Corrected 41.7 35 - 48 mm Hg 07/03/2025 7:00 PM EDT [facility] THERAPY pO2, Temperature Corrected 172(H) 83 - 108 mm Hg 07/03/2025 7:00 PM EDT [facility] THERAPY Arterial Blood 07/03/2025 7: 00 PM EDT 07/03/2025 7:00 PM EDT Kris Boston DO LAB BLOOD ORDERABLES Final Resul t Performing Organization Address City/[facility] Co de Phone Number [facility] THERAPY
[address] [place] [address], * POC Glucose Once (07/03/2025 5:21 PM EDT) Glucose 98 70 - 130 mg/dL 07/03/2025 5:25 PM EDT [facility] Comment:Serial Number: [id number]: [id number] Blood 07/03/2025 5:21 PM EDT 07/03/2025 5:25 PM EDT Kris Boston DO POINT OF CARE TEST ORDERABLES Fi nal Result Performing Organization Address City/[facility]/ZIP Co de Phone Number [facility]
[address] [place] [address], [place] [phone] * XR [place] Procedure (07/03/2025 3:44 PM EDT) us Vaughn Hollingsworth DO IMG DIAGNOSTIC IMAGING ORDERABLE S Final Result * (ABNORMAL) POC Glucose Finger Once (07/03/2025 11:30 AM EDT) Glucose 109 70 - 130 mg/dL [facility] Blood Finger structure / Unknown 07/03/2025 11:30 AM EDT Vishnu Smiley MD POINT OF CARE TEST ORDERABLES Final Result [facility]
[address] [place] [address], * POC Glucose Once (07/03/2025 11:28 AM EDT) Glucose 109 70 - 130 mg/dL 07/27/2025 7:45 AM EST [facility] Comment:Serial Number: [id number]: [id number] Blood 07/03/2025 11:2 8 AM EDT 07/27/2025 7:45 AM EST Mart Ridley MD POINT OF CARE TEST ORDERABLES Final Result [facility]
[address] [place] [address], [place] [phone] * POC Glucose Once (07/03/2025 7:43 AM EDT) Glucose 78 70 - 130 mg/dL 07/03/2025 7:48 AM EDT [facility] Comment:Serial Number: [id number]: [id number] Blood 07/03/2025 7:43 AM EDT 07/03/2025 7:48 AM EDT Krisbrendon Boston DO POINT OF CARE TEST ORDERABLES Fi nal Result Performing Organization Address City/[facility]/ZIP Co de Phone Number [facility]
[address] [place] [address], [place] [phone] * Telemetry Scan (07/03/2025 4:55 AM EDT) [facility] Onbase ECG ORDERABLES Final Result * (ABNORMAL) POC Glucose Once (07/02/2025 9:23 PM EDT) Glucose 214(H) 70 - 130 mg/dL 07/02/2025 9:25 PM EDT [facility] Comment:Serial Number: [id number]: [id number] Blood 07/02/2025 9:23 PM EDT 07/02/2025 9:25 PM EDT Krisbrendon Boston POINT OF CARE TEST ORDERABLES Fi nal Result Performing Organization Address [facility] Co de Phone Number [facility]
[address] [place] [address], [place] [phone] * (ABNORMAL) POC Glucose Once (07/02/2025 4:44 PM EDT) Glucose 155(H) 70 - 130 mg/dL 07/02/2025 4:46 PM EDT [facility] Comment:Serial Number: [id number]: [id number] Blood 07/02/2025 4:44 PM EDT 07/02/2025 4:46 PM EDT Kris Boston DO POINT OF CARE TEST ORDERABLES Fi nal Result [facility]
[address] [place] [address], * (ABNORMAL) POC Glucose Finger 4x Daily Before Meals & at Bedtime (07/02/2025 11:22 AM EDT) Glucose 177(H) 70 - 130 mg/dL 07/02/2025 11:24 AM EDT [facility] Comment:Serial Number: [id number]: [id number] Blood Finger structure / Unknown 07/02/2025 11:22 AM EDT 07/02/2025 11:24 AM EDT us Vaughn S Iltis DO POINT OF CARE TEST ORDERABLES Fi nal Result Performing Organization Address [facility] de Phone Number [facility]
[address] [place] [address], * (ABNORMAL) POC Glucose Finger 4x Daily Before Meals & at Bedtime (07/02/2025 7:39 AM EDT) Glucose 136(H) 70 - 130 mg/dL 07/02/2025 7:41 AM EDT [facility] Comment:Serial Number: [id number]: [id number] Blood Finger structure / Unknown 07/02/2025 7:39 AM EDT 07/02/2025 7:41 AM EDT us Vaughn S Herbtis DO POINT OF CARE TEST ORDERABLES Fi nal Result Performing Organization Address [facility] Co de Phone Number [facility]
[address] [place] [address], * (ABNORMAL) Basic Metabolic Panel (07/02/2025 3:59 AM EDT) Glucose 124(H) 65 - 99 mg/dL 07/02/2025 5:01 AM EDT [facility] BUN 16.9 8.0 - 23.0 mg/dL 07/02/2025 5:01 AM [facility] Creatinine 0.93 0.76 - 1.27 mg/dL 07/02/2025 5:01 AM T [facility] Sodium 136 136 - 145 mmol/L 07/02/2025 5:01 AM [facility] Potassium 5.1 3.5 - 5.2 mmol/L 07/02/2025 5:01 AM EDT [facility] Chloride 104 98 - 107 mmol/L 07/02/2025 5:01 AM T [facility] CO2 21.2(L) 22.0 - 29.0 mmol/L 07/02/2025 5:01 AM [facility] Calcium 8.6 8.6 - 10.5 mg/dL 07/02/2025 5:01 AM [facility] BUN/Creatinine Ratio 18.2 7.0 - 25.0 07/02/2025 5:01 AM T [facility] Anion Gap 10.8 5.0 - 15.0 mmol/L 07/02/2025 5:01 AM [facility] eGFR 87.8 >60.0 mL/min/1.7 3 07/02/2025 5:01 AM [facility] Blood Venipuncture / Unknown 07/02/2025 3:59 AM EDT 07/02/2025 4:28 AM EDT [facility] - 07/02/2025 5:01 AM EDT [...] Andres MD LAB BLOOD ORDERABLES Final Result [facility]
[address] [place] [address], * (ABNORMAL) CBC (No Diff) (07/02/2025 3:59 AM EDT) WBC 7.10 3.40 - 10.80 10*3/mm3 07/02/2025 4:28 AM EDT [facility] RBC 4.15 4.14 - 5.80 10*6/mm3 07/02/2025 4:28 AM EDT [facility] Hemoglobin 9.8(L) 13.0 - 17.7 g/dL 07/02/2025 4:28 AM EDT [facility] Hematocrit 32.8(L) 37.5 - 51.0 % 07/02/2025 4:28 AM EDT [facility] MCV 79.0 79.0 - 97.0 fL 07/02/2025 4:28 AM EDT [facility] MCH 23.6(L) 26.6 - 33.0 pg 07/02/2025 4:28 AM EDT [facility] MCHC 29.9(L) 31.5 - 35.7 g/dL 07/02/2025 4:28 AM EDT [facility] RDW 17.4(H) 12.3 - 15.4 % 07/02/2025 4:28 AM EDT [facility] RDW-SD 49.6 37.0 - 54.0 fl 07/02/2025 4:28 AM EDT [facility] MPV 9.3 6.0 - 12.0 fL 07/02/2025 4:28 AM EDT [facility] Platelets 296 140 - 450 10*3/mm3 07/02/2025 4:28 AM EDT [facility] Blood Venipuncture / Unknown 07/02/2025 3:59 AM EDT 07/02/2025 4:22 AM EDT Kris Boston LAB BLOOD ORDERABLES Final Resul t [facility]
[address] [place] [address], * Telemetry Scan (07/01/2025 9:00 PM EDT) [facility] Onbase ECG ORDERABLES Final Result * (ABNORMAL) POC Glucose Once (07/01/2025 8:52 PM EDT) Glucose 191(H) 70 - 130 mg/dL 07/01/2025 8:54 PM EDT [facility] Comment:Serial Number: [id number]: [id number] Blood 07/01/2025 8:52 PM EDT 07/01/2025 8:54 PM EDT Krisbrendon Boston POINT OF CARE TEST ORDERABLES Fi nal Result Performing Organization Address City/[facility]/ZIP Co de Phone Number [facility]
[address] [place] [address], * Telemetry Scan (07/01/2025 8:01 PM EDT) [facility] ECG ORDERABLES Final Result * POC Glucose Once (07/01/2025 4:23 PM EDT) Glucose 105 70 - 130 mg/dL 07/01/2025 4:25 PM EDT [facility] Comment:Serial Number: [id number]: [id number] Blood 07/01/2025 4:23 PM EDT 07/01/2025 4:25 PM EDT us Kris Boston DO POINT OF CARE TEST ORDERABLES Fi nal Result Performing Organization Address City/[facility] Co de Phone Number [facility]
[address] [place] [address], * (ABNORMAL) POC Glucose Finger 4x Daily Before Meals & at Bedtime (07/01/2025 11:37 AM EDT) Glucose 232(H) 70 - 130 mg/dL 07/01/2025 11:41 AM EDT [facility] Comment:Serial Number: [id number]: [id number] Blood Finger structure / Unknown 07/01/2025 11:37 AM EDT 07/01/2025 11:41 AM EDT us Vaughn Hollingsworth DO POINT OF CARE TEST ORDERABLES Fi nal Result Performing Organization Address [facility] Co de Phone Number [facility]
[address] [place] [address], [place] [phone] * POC Glucose Finger 4x Daily Before Meals & at Bedtime (07/01/2025 7:31 AM EDT) Glucose 72 70 - 130 mg/dL 07/01/2025 7:33 AM EDT [facility] Comment:Serial Number: [id number]: [id number] Blood Finger structure / Unknown 07/01/2025 7:31 AM EDT 07/01/2025 7:33 AM EDT us Vaughn Hollingsworth DO POINT OF CARE TEST ORDERABLES Fi nal Result Performing Organization Address City/[facility] Co de Phone Number [facility]
[address] [place] [address], [place] [phone] * (ABNORMAL) Basic Metabolic Panel (07/01/2025 3:29 AM EDT) Glucose 70 65 - 99 mg/dL 07/01/2025 5:27 AM [facility] BUN 13.7 8.0 - 23.0 mg/dL 07/01/2025 5:27 AM [facility] Creatinine 0.93 0.76 - 1.27 mg/dL 07/01/2025 5:27 AM [facility] Sodium 135(L) 136 - 145 mmol/L 07/01/2025 5:27 AM [facility] Potassium 4.7 3.5 - 5.2 mmol/L 07/01/2025 5:27 AM T [facility] Chloride 104 98 - 107 mmol/L 07/01/2025 5:27 AM [facility] CO2 21.3(L) 22.0 - 29.0 mmol/L 07/01/2025 5:27 AM [facility] Calcium 8.7 8.6 - 10.5 mg/dL 07/01/2025 5:27 AM [facility] BUN/Creatinine Ratio 14.7 7.0 - 25.0 07/01/2025 5:27 AM [facility] Anion Gap 9.7 5.0 - 15.0 mmol/L 07/01/2025 5:27 AM [facility] eGFR 87.8 >60.0 mL/min/1.7 3 07/01/2025 5:27 AM [facility] Blood Venipuncture / Unknown 07/01/2025 3:29 AM EDT 07/01/2025 4:57 AM T [facility] - 07/01/2025 5:27 AM EDT [...] BLOOD ORDERABLES Final Result Performing Organization Address [facility] Co de Phone Number [facility]
[address] [place] [address], * POC Glucose Once (06/30/2025 7:31 PM EDT) Glucose 118 70 - 130 mg/dL 06/30/2025 7:54 PM EDT [facility] Comment:Serial Number: [id number]: [id number] Blood 06/30/2025 7:31 PM EDT 06/30/2025 7:54 PM EDT Kris Boston POINT OF CARE TEST ORDERABLES Fi nal Result Performing Organization Address [facility] de Phone Number [facility]
[address] [place] [address], * POC Glucose Once (06/30/2025 4:29 PM EDT) Glucose 105 70 - 130 mg/dL 06/30/2025 4:32 PM EDT [facility] Comment:Serial Number: [id number]: [id number] Blood 06/30/2025 4:29 PM EDT 06/30/2025 4:32 PM EDT [facility] [place] POINT OF CARE TEST ORDERABLES Fi nal Result Performing Organization Address [facility] Co de Phone Number [facility]
[address] [place] [address], * POC Glucose Finger 4x Daily Before Meals & at Bedtime (06/30/2025 11:52 AM EDT) Glucose 96 70 - 130 mg/dL 06/30/2025 11:54 AM EDT [facility] Comment:Serial Number: [id number]: [id number] Blood Finger structure / Unknown 06/30/2025 11:52 AM EDT 06/30/2025 11:54 AM EDT us Vaughn Rich Iltis DO POINT OF CARE TEST ORDERABLES Fi nal Result Performing Organization Address City/[facility] Co de Phone Number [facility]
[address] [place] [address], * (ABNORMAL) POC Glucose Finger 4x Daily Before Meals & at Bedtime (06/30/2025 7:42 AM EDT) Glucose 133(H) 70 - 130 mg/dL 06/30/2025 7:44 AM EDT [facility] Comment:Serial Number: [id number]: [id number] Blood Finger structure / Unknown 06/30/2025 7:42 AM EDT 06/30/2025 7:44 AM EDT us Vaughn S Iltis DO POINT OF CARE TEST ORDERABLES Fi nal Result Performing Organization Address [facility] de Phone Number [facility]
[address] [place] [address], * (ABNORMAL) CBC Auto Differential (06/30/2025 4:29 AM EDT) WBC 5.48 3.40 - 10.80 10*3/mm3 06/30/2025 6:15 AM EDT [facility] RBC 3.95(L) 4.14 - 5.80 10*6/mm3 06/30/2025 6:15 AM EDT [facility] Hemoglobin 9.2(L) 13.0 - 17.7 g/dL 06/30/2025 6:15 AM EDT [facility] Hematocrit 31.6(L) 37.5 - 51.0 % 06/30/2025 6[facility] MCV 80.0 79.0 - 97.0 fL 06/30/2025 6:15 AM EDT [facility] MCH 23.3(L) 26.6 - 33.0 pg 06/30/2025 6:15 AM [facility] MCHC 29.1(L) 31.5 - 35.7 g/dL 06/30/2025 6:15 AM [facility] RDW 17.3(H) 12.3 - 15.4 % 06/30/2025 6:15 AM [facility] RDW-SD 50.6 37.0 - 54.0 fl 06/30/2025 6:15 AM [facility] MPV 9.4 6.0 - 12.0 fL 06/30/2025 6:15 AM [facility] Platelets 259 140 - 450 10*3/mm3 06/30/2025 6:15 AM [facility] Neutrophil % 55.6 42.7 - 76.0 % 06/30/2025 6:15 AM [facility] Lymphocyte % 24.1 19.6 - 45.3 % 06/30/2025 6:15 AM [facility] Monocyte % 11.7 5.0 - 12.0 % 06/30/2025 6:15 AM [facility] Eosinophil % 7.3(H) 0.3 - 6.2 % 06/30/2025 6:[facility] Basophil % 0.9 0.0 - 1.5 % 06/30/2025 6:15 AM [facility] Immature Grans % 0.4 0.0 - 0.5 % 06/30/2025 6:15 AM [facility] Neutrophils, Absolute 3.05 1.70 - 7.00 10*3/mm3 06/30/2025 6:15 AM [facility] Lymphocytes, Absolute 1.32 0.70 - 3.10 10*3/mm3 06/30/2025 6:15 AM EDT [facility] Monocytes, Absolute 0.64 0.10 - 0.90 10*3/mm3 06/30/2025 6:15 AM EDT [facility] Eosinophils, Absolute 0.40 0.00 - 0.40 10*3/mm3 06/30/2025 6:15 AM EDT [facility] Basophils, Absolute 0.05 0.00 - 0.20 10*3/mm3 06/30/2025 6:15 AM EDT [facility] Immature Grans, Absolute 0.02 0.00 - 0.05 10*3/mm3 06/30/2025 6:15 AM EDT [facility] nRBC 0.0 0.0 - 0.2 /100 WBC 06/30/2025 6:15 AM EDT [facility] Blood Venipuncture / Unknown 06/30/2025 4:29 AM EDT 06/30/2025 5:09 AM EDT Milena Jo APRN LAB BLOOD ORDERABLES Final Result [facility]
[address] [place] [address], * Vancomycin, Random (06/30/2025 4:29 AM EDT) Vancomycin Random 22.80 5.00 - 40.00 mcg/mL 06/30/2025 6:36 AM EDT [facility] Blood Venipuncture / Unknown 06/30/2025 4:29 AM EDT 06/30/2025 5:24 AM EDT Narrative [facility] - 06/30/2025 6:36 AM EDT Therapeutic Ranges for Vancomycin Vancomycin Random 5.0-40.0 mcg/mL Vancomycin Trough 5.0-20.0 mcg/mL Vancomycin Peak 20.0-40.0 mcg/mL Osmany Mccann [facility] LAB BLOOD ORDERABLES Final Result [facility]
[address] [place] [address], * (ABNORMAL) Basic Metabolic Panel (06/30/2025 4:29 AM EDT) Glucose 164(H) 65 - 99 mg/dL 06/30/2025 6:36 AM EDT [facility] BUN 12.3 8.0 - 23.0 mg/dL 06/30/2025 6:36 AM EDT [facility] Creatinine 0.89 0.76 - 1.27 mg/dL 06/30/2025 6:36 AM EDT [facility] Sodium 138 136 - 145 mmol/L 06/30/2025 6:36 AM EDT [facility] Potassium 4.7 3.5 - 5.2 mmol/L 06/30/2025 6:36 AM EDT [facility] Chloride 107 98 - 107 mmol/L 06/30/2025 6:36 AM EDT [facility] CO2 20.8(L) 22.0 - 29.0 mmol/L 06/30/2025 6:36 AM EDT [facility] Calcium 8.4(L) 8.6 - 10.5 mg/dL 06/30/2025 6:36 AM EDT [facility] BUN/Creatinine Ratio 13.8 7.0 - 25.0 06/30/2025 6:36 AM EDT [facility] Anion Gap 10.2 5.0 - 15.0 mmol/L 06/30/2025 6:36 AM EDT [facility] eGFR 91.6 >60.0 mL/min/1.7 3 06/30/2025 6:36 AM EDT [facility] Blood Venipuncture / Unknown 06/30/2025 4:29 AM EDT 06/30/2025 5:24 AM EDT Narrative [facility] - 06/30/2025 6:36 AM EDT GFR [...] include race as a factor Osmany Mccann [facility] LAB BLOOD ORDERABLES Final Result Performing Organization Address City/[facility] Co de Phone Number [facility]
[address] [place] [address], * (ABNORMAL) POC Glucose Once (06/29/2025 8:06 PM EDT) Glucose 136(H) 70 - 130 mg/dL 06/29/2025 8:08 PM EDT [facility] Comment:Serial Number: [id number]: [id number] Blood 06/29/2025 8:06 PM EDT 06/29/2025 8:08 PM EDT Hiro Santillan MD POINT OF CARE TEST ORDERABLES F inal Result Performing Organization Address [facility] Co de Phone Number [facility]
[address] [place] [address], * (ABNORMAL) POC Glucose Once (06/29/2025 4:43 PM EDT) Glucose 135(H) 70 - 130 mg/dL 06/29/2025 4:44 PM EDT [facility] Comment:Serial Number: [id number]: [id number] Blood 06/29/2025 4:43 PM EDT 06/29/2025 4:44 PM EDT us Hiro Sanitllan MD POINT OF CARE TEST ORDERABLES F inal Result Performing Organization Address [facility] de Phone Number [facility]
[address] [place] [address], * (ABNORMAL) POC Glucose Finger 4x Daily Before Meals & at Bedtime (06/29/2025 11:56 AM EDT) Glucose 136(H) 70 - 130 mg/dL 06/29/2025 11:58 AM EDT [facility] Comment:Serial Number: [id number]: [id number] Blood Finger structure / Unknown 06/29/2025 11:56 AM EDT 06/29/2025 11:58 AM EDT us Vaughn Hollingsworth DO POINT OF CARE TEST ORDERABLES Fi nal Result Performing Organization Address [facility] de Phone Number [facility]
[address] [place] [address], * (ABNORMAL) POC Glucose Finger 4x Daily Before Meals & at Bedtime (06/29/2025 7:30 AM EDT) Glucose 157(H) 70 - 130 mg/dL 06/29/2025 7:32 AM EDT [facility] Comment:Serial Number: [id number]: [id number] Blood Finger structure / Unknown 06/29/2025 7:30 AM EDT 06/29/2025 7:32 AM EDT us Vaughn S Iltis DO POINT OF CARE TEST ORDERABLES Fi nal Result Performing Organization Address [facility] de Phone Number [facility]
[address] [place] [address], [place] [phone] * (ABNORMAL) Basic Metabolic Panel (06/29/2025 6:24 AM EDT) Glucose 175(H) 65 - 99 mg/dL 06/29/2025 7:27 AM [facility] BUN 11.4 8.0 - 23.0 mg/dL 06/29/2025 7:27 AM [facility] Creatinine 0.89 0.76 - 1.27 mg/dL 06/29/2025 7:27 AM [facility] Sodium 138 136 - 145 mmol/L 06/29/2025 7:27 AM [facility] Potassium 4.5 3.5 - 5.2 mmol/L 06/29/2025 7:27 AM [facility] Chloride 106 98 - 107 mmol/L 06/29/2025 7:27 AM [facility] CO2 21.9(L) 22.0 - 29.0 mmol/L 06/29/2025 7:27 AM [facility] Calcium 8.5(L) 8.6 - 10.5 mg/dL 06/29/2025 7:27 AM [facility] BUN/Creatinine Ratio 12.8 7.0 - 25.0 06/29/2025 7:27 AM [facility] Anion Gap 10.1 5.0 - 15.0 mmol/L 06/29/2025 7:27 AM [facility] eGFR 91.6 >60.0 mL/min/1.7 3 06/29/2025 7:27 AM [facility] Blood Venipuncture / Unknown 06/29/2025 6:24 AM EDT 06/29/2025 7:02 AM T [facility] - 06/29/2025 7:27 AM EDT [...] include race as a factor Osmany Mccann [facility] LAB BLOOD ORDERABLES Final Result [facility]
[address] [place] [address], * (ABNORMAL) CBC Auto Differential (06/29/2025 6:23 AM EDT) [facility] WBC 7.30 3.40 - 10.80 10*3/mm3 06/29/2025 7:10 AM EDT [facility] RBC 3.87(L) 4.14 - 5.80 10*6/mm3 06/29/2025 7:10 AM EDT [facility] Hemoglobin 9.0(L) 13.0 - 17.7 g/dL 06/29/2025 7:10 AM EDT [facility] Hematocrit 29.2(L) 37.5 - 51.0 % 06/29/2025 7:10 AM EDT [facility] MCV 75.5(L) 79.0 - 97.0 fL 06/29/2025 7:10 AM EDT [facility] MCH 23.3(L) 26.6 - 33.0 pg 06/29/2025 7:10 AM EDT [facility] MCHC 30.8(L) 31.5 - 35.7 g/dL 06/29/2025 7:10 AM EDT [facility] RDW 17.1(H) 12.3 - 15.4 % 06/29/2025 7:10 AM EDT [facility] RDW-SD 46.1 37.0 - 54.0 fl 06/29/2025 7:10 AM EDT [facility] MPV 9.7 6.0 - 12.0 fL 06/29/2025 7:10 AM EDT [facility] Platelets 289 140 - 450 10*3/mm3 06/29/2025 7:10 AM [facility] Neutrophil % 64.5 42.7 - 76.0 % 06/29/2025 7:10 AM [facility] Lymphocyte % 19.7 19.6 - 45.3 % 06/29/2025 7:10 AM [facility] Monocyte % 8.8 5.0 - 12.0 % 06/29/2025 7:10 AM [facility] Eosinophil % 5.8 0.3 - 6.2 % 06/29/2025 7:10 AM [facility] Basophil % 0.8 0.0 - 1.5 % 06/29/2025 7:10 AM [facility] Immature Grans % 0.4 0.0 - 0.5 % 06/29/2025 7:10 AM [facility] Neutrophils, Absolute 4.71 1.70 - 7.00 10*3/mm3 06/29/2025 7:10 AM [facility] Lymphocytes, Absolute 1.44 0.70 - 3.10 10*3/mm3 06/29/2025 7:10 AM [facility] Monocytes, Absolute 0.64 0.10 - 0.90 10*3/mm3 06/29/2025 7:10 AM [facility] Eosinophils, Absolute 0.42(H) 0.00 - 0.40 10*3/mm3 06/29/2025 7:10 AM [facility] Basophils, Absolute 0.06 0.00 - 0.20 10*3/mm3 06/29/2025 7:10 AM [facility] Immature Grans, Absolute 0.03 0.00 - 0.05 10*3/mm3 06/29/2025 7:10 AM [facility] nRBC 0.0 0.0 - 0.2 /100 WBC 06/29/2025 7:10 AM [facility] Blood Venipuncture / Unknown 06/29/2025 6:23 AM EDT 06/29/2025 7:02 AM EDT Milena Jo [employer] LAB BLOOD ORDERABLES Final Result Performing Organization Address [facility] de Phone Number [facility]
[address] [place] [address], * (ABNORMAL) POC Glucose Once (06/28/2025 8:17 PM EDT) Glucose 149(H) 70 - 130 mg/dL 06/28/2025 8:22 PM EDT [facility] Comment:Serial Number: [id number]: [id number] Blood 06/28/2025 8:17 PM EDT 06/28/2025 8:22 PM EDT Hiro Santillan MD POINT OF CARE TEST ORDERABLES F inal Result Performing Organization Address [facility] de Phone Number [facility]
[address] [place] [address], * (ABNORMAL) POC Glucose Finger 4x Daily Before Meals & at Bedtime (06/28/2025 5:01 PM EDT) Glucose 166(H) 70 - 130 mg/dL 06/28/2025 5:04 PM EDT [facility] Comment:Serial Number: [id number]: [id number] Blood Finger structure / Unknown 06/28/2025 5:01 PM EDT 06/28/2025 5:04 PM EDT Vaughn Hollingsworth DO POINT OF CARE TEST ORDERABLES Fi nal Result Performing Organization Address [facility] de Phone Number [facility]
[address] [place] [address], * POC Glucose Finger 4x Daily Before Meals & at Bedtime (06/28/2025 11:44 AM EDT) Glucose 111 70 - 130 mg/dL 06/28/2025 11:47 AM EDT [facility] Comment:Serial Number: [id number]: [id number] Blood Finger structure / Unknown 06/28/2025 11:44 AM EDT 06/28/2025 11:47 AM EDT us Vaughn Hollingsworth DO POINT OF CARE TEST ORDERABLES Fi nal Result Performing Organization Address [facility] Co de Phone Number [facility]
[address] [place] [address], * (ABNORMAL) POC Glucose Finger 4x Daily Before Meals & at Bedtime (06/28/2025 7:39 AM EDT) Glucose 60(L) 70 - 130 mg/dL 06/28/2025 7:40 AM EDT [facility] Comment:Serial Number: [id number]: [id number] Blood Finger structure / Unknown 06/28/2025 7:39 AM EDT 06/28/2025 7:40 AM EDT us Vaughn Hollingsworth DO POINT OF CARE TEST ORDERABLES Fi nal Result Performing Organization Address [facility] de Phone Number [facility]
[address] [place] [address], * (ABNORMAL) Basic Metabolic Panel (06/28/2025 4:00 AM EDT) Glucose 125(H) 65 - 99 mg/dL 06/28/2025 5:43 AM EDT [facility] BUN 11.0 8.0 - 23.0 mg/dL 06/28/2025 5:43 AM EDT [facility] Creatinine 0.79 0.76 - 1.27 mg/dL 06/28/2025 5:43 AM EDT [facility] Sodium 140 136 - 145 mmol/L 06/28/2025 5:43 AM EDT [facility] Potassium 4.6 3.5 - 5.2 mmol/L 06/28/2025 5:43 AM EDT [facility] Chloride 111(H) 98 - 107 mmol/L 06/28/2025 5:43 AM EDT [facility] CO2 21.7(L) 22.0 - 29.0 mmol/L 06/28/2025 5:43 AM EDT [facility] Calcium 8.2(L) 8.6 - 10.5 mg/dL 06/28/2025 5:43 AM EDT [facility] BUN/Creatinine Ratio 13.9 7.0 - 25.0 06/28/2025 5:43 AM EDT [facility] Anion Gap 7.3 5.0 - 15.0 mmol/L 06/28/2025 5:43 AM EDT [facility] eGFR 95.0 >60.0 mL/min/1.7 3 06/28/2025 5:43 AM EDT [facility] Blood Venipuncture / Unknown 06/28/2025 4:00 AM EDT 06/28/2025 5:13 AM EDT [facility] - 06/28/2025 5:43 AM EDT [...] include race as a factor Osmany Mccann [facility] BLOOD ORDERABLES Final Result [facility]
[address] [place] [address], * Vancomycin, Random (06/28/2025 4:00 AM EDT) Vancomycin Random 23.30 5.00 - 40.00 mcg/mL 06/28/2025 5:43 AM EDT [facility] Blood Venipuncture / Unknown 06/28/2025 4:00 AM EDT 06/28/2025 5:13 AM EDT Narrative [facility] - 06/28/2025 5:43 AM EDT Therapeutic Ranges for Vancomycin Vancomycin Random 5.0-40.0 mcg/mL Vancomycin Trough 5.0-20.0 mcg/mL Vancomycin Peak 20.0-40.0 mcg/mL Osmany Mccann [facility] BLOOD ORDERABLES Final Result Performing Organization Address [facility]/ZIP Co de Phone Number [facility]
[address] [place] [address], * (ABNORMAL) POC Glucose Once (06/27/2025 8:24 PM EDT) Glucose 177(H) 70 - 130 mg/dL 06/27/2025 8:26 PM EDT [facility] Comment:Serial Number: [id number]: [id number] Blood 06/27/2025 8:24 PM EDT 06/27/2025 8:26 PM EDT Hiro Santillan MD POINT OF CARE TEST ORDERABLES F inal Result [facility]
[address] [place] [address], * POC Glucose Once (06/27/2025 4:18 PM EDT) Glucose 104 70 - 130 mg/dL 06/27/2025 4:21 PM EDT [facility] Comment:Serial Number: [id number]: [id number] Blood 06/27/2025 4:18 PM EDT 06/27/2025 4:21 PM EDT Hiro Santillan MD POINT OF CARE TEST ORDERABLES F inal Result [facility]
[address] [place] [address], * ECG 12 Lead QT Measurement (06/27/2025 [...] longer evident in Lateral leads Confirmed by LINDSAY MURILLO, AMANDA ([id number]) on 07/02/2025 6:13:19 AM Referred By: Confirmed By: AMANDA DICKEY MD Chinyere Hensley [employer]IM[employer] ECG ORDERABLES Final Resul t Performing Organization Address [facility] Co de Phone Number ECG * POC Glucose Once (06/27/2025 11:10 AM EDT) Glucose 130 70 - 130 mg/dL 06/27/2025 11:12 AM EDT [facility] Comment:Serial Number: [id number]: [id number] Blood 06/27/2025 11:1 0 AM EDT 06/27/2025 11:12 AM EDT Hiro Santillan MD POINT OF CARE TEST ORDERABLES F inal Result Performing Organization Address [facility] de Phone Number [facility]
[address] [place] [address], * POC Glucose Finger 4x Daily Before Meals & at Bedtime (06/27/2025 7:19 AM EDT) Glucose 102 70 - 130 mg/dL 06/27/2025 7:21 AM EDT [facility] Comment:Serial Number: [id number]: [id number] Blood Finger structure / Unknown 06/27/2025 7:19 AM EDT 06/27/2025 7:21 AM EDT us Vaughn Hollingsworth DO POINT OF CARE TEST ORDERABLES Fi nal Result Performing Organization Address [facility] Co de Phone Number [facility] [place] [address], * (ABNORMAL) CBC Auto Differential (06/27/2025 4:00 AM EDT) WBC 9.98 3.40 - 10.80 10*3/mm3 06/27/2025 5:[facility] RBC 3.93(L) 4.14 - 5.80 10*6/mm3 06/27/2025 5:07 [facility] Hemoglobin 9.4(L) 13.0 - 17.7 g/dL 06/27/2025 5:07 AM [facility] Hematocrit 30.4(L) 37.5 - 51.0 % 06/27/2025 5:07 [facility] MCV 77.4(L) 79.0 - 97.0 fL 06/27/2025 5:07 AM [facility] MCH 23.9(L) 26.6 - 33.0 pg 06/27/2025 5:07 AM [facility] MCHC 30.9(L) 31.5 - 35.7 g/dL 06/27/2025 5:07 AM [facility] RDW 16.9(H) 12.3 - 15.4 % 06/27/2025 5:07 AM [facility] RDW-SD 47.6 37.0 - 54.0 fl 06/27/2025 5:07 AM [facility] MPV 9.6 6.0 - 12.0 fL 06/27/2025 5:07 AM [facility] Platelets 274 140 - 450 10*3/mm3 06/27/2025 5:07 AM [facility] Neutrophil % 68.1 42.7 - 76.0 % 06/27/2025 5:07 AM [facility] Lymphocyte % 17.9(L) 19.6 - 45.3 % 06/27/2025 5:07 AM [facility] Monocyte % 8.3 5.0 - 12.0 % 06/27/2025 5:07 AM [facility] Eosinophil % 4.7 0.3 - 6.2 % 06/27/2025 5:07 AM [facility] Basophil % 0.6 0.0 - 1.5 % 06/27/2025 5:07 AM EDT [facility] Immature Grans % 0.4 0.0 - 0.5 % 06/27/2025 5:07 AM EDT [facility] Neutrophils, Absolute 6.79 1.70 - 7.00 10*3/mm3 06/27/2025 5:07 AM EDT [facility] Lymphocytes, Absolute 1.79 0.70 - 3.10 10*3/mm3 06/27/2025 5:07 AM EDT [facility] Monocytes, Absolute 0.83 0.10 - 0.90 10*3/mm3 06/27/2025 5:07 AM EDT [facility] Eosinophils, Absolute 0.47(H) 0.00 - 0.40 10*3/mm3 06/27/2025 5:07 AM EDT [facility] Basophils, Absolute 0.06 0.00 - 0.20 10*3/mm3 06/27/2025 5:07 AM EDT [facility] Immature Grans, Absolute 0.04 0.00 - 0.05 10*3/mm3 06/27/2025 5:07 AM EDT [facility] nRBC 0.0 0.0 - 0.2 /100 WBC 06/27/2025 5:07 AM EDT [facility] Blood Venipuncture / Unknown 06/27/2025 4:00 AM EDT 06/27/2025 5:03 AM EDT us Hiro Sanitllan MD LAB BLOOD ORDERABLES Final Resu lt [facility]
[address] [place] [address], * Magnesium (06/27/2025 4:00 AM EDT) Magnesium 2.2 1.6 - 2.4 mg/dL 06/27/2025 5:25 AM EDT [facility] Blood Venipuncture / Unknown 06/27/2025 4:00 AM EDT 06/27/2025 5:03 AM EDT Hiro Santillan MD LAB BLOOD ORDERABLES Final Resu lt [facility]
[address] [place] [address], * (ABNORMAL) Basic Metabolic Panel (06/27/2025 4:00 AM EDT) Glucose 91 65 - 99 mg/dL 06/27/2025 5:25 AM EDT [facility] BUN 15.3 8.0 - 23.0 mg/dL 06/27/2025 5:25 AM EDT [facility] Creatinine 0.92 0.76 - 1.27 mg/dL 06/27/2025 5:25 AM EDT [facility] Sodium 139 136 - 145 mmol/L 06/27/2025 5:25 AM EDT [facility] Potassium 4.3 3.5 - 5.2 mmol/L 06/27/2025 5:25 AM EDT [facility] Chloride 109(H) 98 - 107 mmol/L 06/27/2025 5:25 AM EDT [facility] CO2 20.3(L) 22.0 - 29.0 mmol/L 06/27/2025 5:25 AM EDT [facility] Calcium 8.1(L) 8.6 - 10.5 mg/dL 06/27/2025 5:25 AM EDT [facility] BUN/Creatinine Ratio 16.6 7.0 - 25.0 06/27/2025 5:25 AM EDT [facility] Anion Gap 9.7 5.0 - 15.0 mmol/L 06/27/2025 5:25 AM EDT [facility] eGFR 88.9 >60.0 mL/min/1.7 3 06/27/2025 5:25 AM EDT [facility] Blood Venipuncture / Unknown 06/27/2025 4:00 AM EDT 06/27/2025 5:03 AM EDT Narrative [facility] - 06/27/2025 5:25 AM EDT GFR [...] Final Resu lt Performing Organization Address City/[facility]/ZIP Co de Phone Number [facility]
[address] [place] [address], * (ABNORMAL) POC Glucose Once (06/26/2025 9:07 PM EDT) Glucose 176(H) 70 - 130 mg/dL 06/26/2025 9:10 PM EDT [facility] Comment:Serial Number: [id number]: [id number] Blood 06/26/2025 9:07 PM EDT 06/26/2025 9:10 PM EDT us Hiro Santillan MD POINT OF CARE TEST ORDERABLES F inal Result Performing Organization Address City/[facility] Co de Phone Number [facility]
[address] [place] [address], [place] [phone] * MRI Foot Left Without Contrast (06/26/2025 [...] MD 06/26/2025 10:08 PM EDT Workstation ID: [id number] Narrative 06/26/2025 10:08 PM EDT MRI FOOT [...] MD 06/26/2025 10:08 PM EDT Workstation ID: [id number] us Amanda Bermudez MD IM MRI ORDERABLES Final Resu lt * (ABNORMAL) POC Glucose Once (06/26/2025 4:42 PM EDT) Glucose 193(H) 70 - 130 mg/dL 06/26/2025 4:45 PM EDT [facility] Comment:Serial Number: [id number]: [id number] Blood 06/26/2025 4:42 PM EDT 06/26/2025 4:45 PM EDT Hiro Santillan MD POINT OF CARE TEST ORDERABLES F inal Result Performing Organization Address City/[facility] Co de Phone Number [facility]
[address] [place] [address], * (ABNORMAL) POC Glucose Once (06/26/2025 11:45 AM EDT) Glucose 156(H) 70 - 130 mg/dL 06/26/2025 11:48 AM EDT [facility] Comment:Serial Number: [id number]: [id number] Blood 06/26/2025 11:4 5 AM EDT 06/26/2025 11:48 AM EDT Hiro Santillan MD POINT OF CARE TEST ORDERABLES F inal Result Performing Organization Address [facility] de Phone Number [facility]
[address] [place] [address], * DUPLEX LOWER EXTREMITY ART/GRAFTS LEFT CAR - COR/EVANGELISTA/MAD (06/26/2025 9:36 AM EDT) SFA Prox PSV-Left 78.5 cm/s SFA Mid PSV-Left 285.6 cm/s SFA Distal PSV-Left 169.9 cm/s Popiteal A Prox PSV-Left 97.2 cm/s Popiteal A Distal PSV-Left 119.6 cm/s Ant Tibial A Distal PSV-Left 94.0 cm/s DIRECTOR [employer] Distal PSV-Left 86.4 cm/s Left groin [employer] sys 112.2 cm/sec [employer] Prox PSV-Left 112.20 cm/s DFA Prox PSV-Left [...] findings: The EIA is not visualized. The [employer] SCHO[employer] TE[employer]ER is monophasic suggestive of inflow disease. The DFA is monophasic. The SFA is patent with diffuse plaque noted throughout, multiple lesions are suspected throughout the SFA due to elevated velocities and plaque formation. The popliteal artery is monophasic. The DIRECTOR [employer]OD [employer]EVER[employer] SERVICES is not visualized in the proximal and mid calf. The distal [employer]OR [employer] is heavily calcified with monophasic flow. The CHIP is not visualized in the proximal and mid calf, The distal CHIP is retrograde with monophasic flow. The Rcih Artery is not visualized. Additional Study Details [...] ABO Type B 06/26/2025 10:07 AM EDT [facility] RH type Positive 06/26/2025 10:07 AM EDT [facility] Antibody Screen Negative 06/26/2025 10:07 AM EDT [facility] T&S Expiration Date 06/29/2025 11:59:59 PM 06/26/2025 10:07 AM EDT [facility] Blood Venipuncture / Unknown 06/26/2025 7:41 AM EDT 06/26/2025 9:19 AM EDT Amanda Bermudez MD BLOOD BANK TEST ORDERABLES Ed ited Result - Final Performing Organization Address [facility]/ZIP Co de Phone Number [facility]
[address] [place] [address], * Ferritin (06/26/2025 7:41 AM EDT) Ferritin 108.00 30.00 - 400.00 ng/mL 06/26/2025 9:47 AM EDT [facility] Blood Venipuncture / Unknown 06/26/2025 7:41 AM EDT 06/26/2025 9:12 AM EDT [facility] - 06/26/2025 9:47 AM EDT Results may be falsely decreased if patient taking Biotin. Amanda Bermudez MD LAB BLOOD ORDERABLES Final Re sult Performing Organization Address [facility] de Phone Number [facility]
[address] [place] [address], * Vitamin B12 (06/26/2025 7:41 AM EDT) Vitamin B-12 922 211 - 946 pg/mL 06/26/2025 12:57 PM EDT [facility] Blood Venipuncture / Unknown 06/26/2025 7:41 AM EDT 06/26/2025 9:12 AM EDT [facility] - 06/26/2025 12:57 PM EDT Results may be falsely increased if patient taking Biotin. us Amanda Bermudez MD LAB BLOOD ORDERABLES Final Re sult Performing Organization Address [facility]/ZIP Co de Phone Number [facility]
[address] [place] [address], * (ABNORMAL) Iron Profile w/o Ferritin (06/26/2025 7:41 AM EDT) Iron 14(L) 59 - 158 mcg/dL 06/26/2025 9:47 AM EDT [facility] Iron Saturation (TSAT) 5(L) 20 - 50 % 06/26/2025 9:47 AM EDT [facility] Transferrin 172(L) 200 - 360 mg/dL 06/26/2025 9:47 AM EDT [facility] TIBC 256(L) 298 - 536 mcg/dL 06/26/2025 9:47 AM EDT [facility] Blood Venipuncture / Unknown 06/26/2025 7:41 AM EDT 06/26/2025 9:12 AM EDT Amanda Bermudez MD LAB BLOOD ORDERABLES Final Re sult Performing Organization Address [facility] Co de Phone Number [facility]
[address] [place] [address], [place] [phone] * TSH Rfx On Abnormal To Free T4 (06/26/2025 7:41 AM EDT) TSH 0.340 0.270 - 4.200 uIU/mL 06/26/2025 9:47 AM EDT [facility] Blood Venipuncture / Unknown 06/26/2025 7:41 AM EDT 06/26/2025 9:12 AM EDT Amanda Bermudez MD LAB BLOOD ORDERABLES Final Re sult Performing Organization Address City/[facility]/ZIP Co de Phone Number [facility]
[address] [place] [address], [place] [phone] * CK (06/26/2025 7:41 AM EDT) Creatine Kinase 59 20 - 200 U/L 06/26/2025 9:47 AM EDT [facility] Blood Venipuncture / Unknown 06/26/2025 7:41 AM EDT 06/26/2025 9:12 AM EDT Amanda Bermudez MD LAB BLOOD ORDERABLES Final Re sult [facility]
[address] [place] [address], * (ABNORMAL) Lipid Panel (06/26/2025 7:41 AM EDT) Total Cholesterol 154 0 - 200 mg/dL 06/26/2025 9:47 AM EDT [facility] Triglycerides 131 0 - 150 mg/dL 06/26/2025 9:47 AM EDT [facility] HDL Cholesterol 27(L) 40 - 60 mg/dL 06/26/2025 9:47 AM EDT [facility] LDL Cholesterol 103(H) 0 - 100 mg/dL 06/26/2025 9:47 AM EDT [facility] VLDL Cholesterol 24 5 - 40 mg/dL 06/26/2025 9:47 AM EDT [facility] LDL/HDL Ratio 3.73 06/26/2025 9:47 AM EDT [facility] Blood Venipuncture / Unknown 06/26/2025 7:41 AM EDT 06/26/2025 9:12 AM EDT [facility] - 06/26/2025 9:47 AM EDT [...] MD LAB BLOOD ORDERABLES Final Re sult [facility]
[address] [place] [address], * Phosphorus (06/26/2025 7:41 AM EDT) Phosphorus 2.9 2.5 - 4.5 mg/dL 06/26/2025 9:47 AM EDT [facility] Blood Venipuncture / Unknown 06/26/2025 7:41 AM EDT 06/26/2025 9:12 AM EDT us Amanda Bermudez MD LAB BLOOD ORDERABLES Final Re sult Performing Organization Address City/[facility]/ZIP Co de Phone Number [facility]
[address] [place] [address], * Magnesium (06/26/2025 7:41 AM EDT) Magnesium 1.8 1.6 - 2.4 mg/dL 06/26/2025 9:47 AM EDT [facility] Blood Venipuncture / Unknown 06/26/2025 7:41 AM EDT 06/26/2025 9:12 AM EDT us Amanda Bermudez MD LAB BLOOD ORDERABLES Final Re sult Performing Organization Address [facility] de Phone Number [facility]
[address] [place] [address], * (ABNORMAL) Hemoglobin A1c (06/26/2025 7:41 AM EDT) Hemoglobin A1C 7.82(H) 4.80 - 5.60 % 06/26/2025 9:46 AM EDT [facility] Blood Venipuncture / Unknown 06/26/2025 7:41 AM EDT 06/26/2025 9:12 AM EDT Narrative [facility] - 06/26/2025 9:46 AM EDT Hemoglobin A1C Ranges: Increased Risk for Diabetes 5.7% to 6.4% Diabetes >= 6.5% Diabetic Goal < 7.0% Amanda Bermudez MD LAB BLOOD ORDERABLES Final Re sult Performing Organization Address [facility] de Phone Number [facility]
[address] [place] [address], * (ABNORMAL) Protime-INR (06/26/2025 7:41 AM EDT) Protime 16.7(H) 12.2 - 15.3 Seconds 06/26/2025 9:31 AM EDT [facility] INR 1.27(H) 0.89 - 1.12 06/26/2025 9:31 AM EDT [facility] Blood Venipuncture / Unknown 06/26/2025 7:41 AM EDT 06/26/2025 9:12 AM EDT Amanda Bermudez MD LAB BLOOD ORDERABLES Final Re sult Performing Organization Address [facility] Co de Phone Number [facility]
[address] [place] [address], * Lactic Acid, Plasma (06/26/2025 7:41 AM EDT) Pathologist [facility] Lactate 1.2 0.5 - 2.0 mmol/L 06/26/2025 9:41 AM EDT [facility] Comment:Falsely depressed re sults may occur on samples drawn from patients receiving N-Acetylcysteine (NAC) or Metamizole. Blood Venipuncture / Unknown 06/26/2025 7:41 AM EDT 06/26/2025 9:12 AM EDT Amanda Bermudez MD LAB BLOOD ORDERABLES Final Re sult [facility]
[address] [place] [address], * (ABNORMAL) Comprehensive Metabolic Panel (06/26/2025 7:41 AM EDT) Pathologist [facility] Glucose 134(H) 65 - 99 mg/dL 06/26/2025 9:47 AM EDT [facility] BUN 19.1 8.0 - 23.0 mg/dL 06/26/2025 9:47 AM EDT [facility] Creatinine 0.88 0.76 - 1.27 mg/dL 06/26/2025 9:47 AM EDT [facility] Sodium 142 136 - 145 mmol/L 06/26/2025 9:47 AM EDT [facility] Potassium 3.7 3.5 - 5.2 mmol/L 06/26/2025 9:47 AM EDT [facility] Chloride 112(H) 98 - 107 mmol/L 06/26/2025 9:47 AM EDT [facility] CO2 21.4(L) 22.0 - 29.0 mmol/L 06/26/2025 9:47 AM EDT [facility] Calcium 8.3(L) 8.6 - 10.5 mg/dL 06/26/2025 9:47 AM EDT [facility] Total Protein 7.1 6.0 - 8.5 g/dL 06/26/2025 9:47 AM [facility] Albumin 3.0(L) 3.5 - 5.2 g/dL 06/26/2025 9:47 AM [facility] ALT (SGPT) 13 1 - 41 U/L 06/26/2025 9:47 AM [facility] AST (SGOT) 15 1 - 40 U/L 06/26/2025 9:47 AM [facility] Alkaline Phosphatase 116 39 - 117 U/L 06/26/2025 9:47 AM [facility] Total Bilirubin 0.2 0.0 - 1.2 mg/dL 06/26/2025 9:47 AM [facility] Globulin 4.1 gm/dL 06/26/2025 9:47 AM [facility] Comment:Calculated Result A/G Ratio 0.7 g/dL 06/26/2025 9:47 AM [facility] BUN/Creatinine Ratio 21.7 7.0 - 25.0 06/26/2025 9:47 AM [facility] Anion Gap 8.6 5.0 - 15.0 mmol/L 06/26/2025 9:47 AM [facility] eGFR 91.9 >60.0 mL/min/1.7 3 06/26/2025 9:47 AM [facility] Blood Venipuncture / Unknown 06/26/2025 7:41 AM EDT 06/26/2025 9:12 AM [facility]ORATORY - 06/26/2025 9:47 AM EDT GFR [...] MD LAB BLOOD ORDERABLES Final Re sult [facility]
[id number] [place] [address], * (ABNORMAL) CBC Auto Differential (06/26/2025 7:40 AM EDT) WBC 9.69 3.40 - 10.80 10*3/mm3 06/26/2025 9:17 AM EDT [facility] RBC 3.78(L) 4.14 - 5.80 10*6/mm3 06/26/2025 9:17 AM EDT [facility] Hemoglobin 8.8(L) 13.0 - 17.7 g/dL 06/26/2025 9:17 AM EDT [facility] Hematocrit 29.3(L) 37.5 - 51.0 % 06/26/2025 9:17 AM EDT [facility] MCV 77.5(L) 79.0 - 97.0 fL 06/26/2025 9:17 AM EDT [facility] MCH 23.3(L) 26.6 - 33.0 pg 06/26/2025 9:17 AM EDT [facility] MCHC 30.0(L) 31.5 - 35.7 g/dL 06/26/2025 9:17 AM EDT [facility] RDW 16.6(H) 12.3 - 15.4 % 06/26/2025 9:17 AM EDT [facility] RDW-SD 46.7 37.0 - 54.0 fl 06/26/2025 9:17 AM EDT [facility] MPV 9.8 6.0 - 12.0 fL 06/26/2025 9:17 AM EDT [facility] Platelets 271 140 - 450 10*3/mm3 06/26/2025 9:17 AM [facility] Neutrophil % 67.9 42.7 - 76.0 % 06/26/2025 9:17 AM [facility] Lymphocyte % 18.3(L) 19.6 - 45.3 % 06/26/2025 9:17 AM [facility] Monocyte % 8.3 5.0 - 12.0 % 06/26/2025 9:17 AM [facility] Eosinophil % 4.4 0.3 - 6.2 % 06/26/2025 9:17 AM [facility] Basophil % 0.7 0.0 - 1.5 % 06/26/2025 9:17 AM [facility] Immature Grans % 0.4 0.0 - 0.5 % 06/26/2025 9:17 AM [facility] Neutrophils, Absolute 6.58 1.70 - 7.00 10*3/mm3 06/26/2025 9:17 AM [facility] Lymphocytes, Absolute 1.77 0.70 - 3.10 10*3/mm3 06/26/2025 9:17 AM [facility] Monocytes, Absolute 0.80 0.10 - 0.90 10*3/mm3 06/26/2025 9:17 AM [facility] Eosinophils, Absolute 0.43(H) 0.00 - 0.40 10*3/mm3 06/26/2025 9:17 AM [facility] Basophils, Absolute 0.07 0.00 - 0.20 10*3/mm3 06/26/2025 9:17 AM [facility] Immature Grans, Absolute 0.04 0.00 - 0.05 10*3/mm3 06/26/2025 9:17 AM [facility] nRBC 0.0 0.0 - 0.2 /100 WBC 06/26/2025 9:17 AM [facility] Blood Venipuncture / Unknown 06/26/2025 7:40 AM EDT 06/26/2025 9:12 AM EDT Amanda Bermuedz MD LAB BLOOD ORDERABLES Final Re sult [facility]
[address] [place] [address], * POC Glucose Once (06/26/2025 5:57 AM EDT) Glucose 119 70 - 130 mg/dL 06/26/2025 6:00 AM EDT [facility] Comment:Serial Number: [id number]: [id number] Blood 06/26/2025 5:57 AM EDT 06/26/2025 6:00 AM EDT Steve Kinney MD POINT OF CARE TEST ORDERABLES Final Result Performing Organization Address [facility] Co de Phone Number [facility]
[address] [place] [address], * CT Angiogram Lower Extremity Left (06/26/2025 [...] the posterior tibial artery. 2.Status post right bkdad-mmi-jyxm amputation. There is occlusion of the proximal right PFA with reconstitution. 3.Severe diffuse atrophy in the left lower extremity musculature. 4.Moderate sized fat and sigmoid colon containing left inguinal hernia and small fat-containing right inguinal hernia. 5.Marked urinary bladder wall thickening. Correlate for cystitis. Electronically Signed: Hussain Lyles MD 06/26/2025 5:08 AM EDT Workstation ID: [id number] Narrative 06/26/2025 5:[address] ANGIOGRAM [...] Right lower extremity: Patient is status post ergrz-adp-eowk amputation. There is mild disease in the [employer] and SFA. The PFA is occluded proximally with reconstitution. There is moderate segmental stenosing disease in the remainder of the SFA. 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 PFA is patent. There is mild SFA disease with moderate focal narrowing at the junction of the SFA and popliteal artery. The oqymw-gki-kodl popliteal artery appears otherwise widely patent. There [...] Right lower extremity: Patient is status post fgwuh-jty-rbgp amputation.There is mild disease in the AFTER SCHOOL TEACHER and SFA. The PFA is occluded proximallywith reconstitution. There is moderate segmental stenosing disease in theremainder of the SFA. 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 PFA is patent. There is mildSFA disease with moderate focal narrowing at the junction of the SFA andpopliteal artery. The vqxpv-wwp-ewxg popliteal artery appears otherwisewidely patent. There is [...] in the posteriortibial artery. 2.Status post right vawai-zlm-wprk amputation. There is occlusion of theproximal right PFA with reconstitution. 3.Severe diffuse atrophy in the left lower extremity musculature. 4.Moderate sized fat and sigmoid colon containing left inguinal hernia andsmall fat-containing right inguinal hernia. 5.Marked urinary bladder wall thickening. Correlate for cystitis. Electronically Signed: Hussain Lyles MD 06/26/2025 5:08 AM EDT Workstation ID: [id number] us Amanda Bermudez MD IMG CT ORDERABLES Final Resul t * XR Chest 1 View (06/26/2025 4:09 AM EDT) Anatomical Region Laterality Modality Body N/A Radiographic Martha ging 06/26/2025 4:12 AM EDT Impressions 06/26/2025 4:13 AM EDT Cardiomegaly with possible mild right basilar atelectasis. Electronically Signed: Brent Lubin MD 06/26/2025 4:13 AM EDT Workstation ID: [id number] Narrative 06/26/2025 4:13 AM EDT XR CHEST [...] MD 06/26/2025 4:13 AM EDT Workstation ID: [id number] Amanda Bermudez MD IMG DIAGNOSTIC IMAGING ORDERA [...] Lateral leads Confirmed by AMANDA DICKEY MD () on 07/02/2025 6:03:44 AM Referred By: Confirmed [...] Referred By: Confirmed By: AMANDA DICKEY MD us Amanda Bermudez MD ECG ORDERABLES Final Result Performing Organization Address City/[facility]/ZIP Co de Phone Number ECG * POC Glucose Once (06/26/2025 12:51 AM EDT) [facility] Glucose 83 70 - 130 mg/dL 06/26/2025 12:54 AM EDT [facility] Comment:Serial Number: [id number]: [id number] Blood 06/26/2025 12:5 1 AM EDT 06/26/2025 12:54 AM EDT Amanda Bermudez MD POINT OF CARE TEST ORDERABLES Final Result Performing Organization Address [facility] de Phone Number [facility]
[address] [place] [address], * Clostridioides difficile toxin Ag, Reflex - Stool, Per Rectum (06/26/2025 12:46 AM EDT) [facility] C.diff Toxin Ag Negative Negative DISK DIFFUSION 06/26/2025 8:36 AM EDT [facility] Stool Specimen from rectum / Unknown Collection / Unknown 06/26/2025 12:46 AM EDT 06/26/2025 1:08 AM EDT Narrative [facility] - 06/26/2025 8:36 AM EDT DNA from a toxigenic strain of C.difficile was detected, although the free toxin itself was not detected. These findings are consistent with C.difficile colonization and may not reflect actual C.difficile infection. Clinical correlation needed. Ally Pryor APRN MICROBIOLOGY - GENERAL ORDER SEB Final Result Performing Organization Address City/[facility] Co de Phone Number [facility]
[address] [place] [address], * (ABNORMAL) MRSA Screen, PCR (Inpatient) - Swab, Nares (06/26/2025 12:46 AM EDT) [facility] MRSA PCR Positive(A ) Negative CEPHEID GENEXPERT 06/26/2025 8:50 AM EDT [facility] Swab Structure of anterior naris / Unknown Collection / Unknown 06/26/2025 12:46 AM EDT 06/26/2025 5:37 AM EDT [facility] - 06/26/2025 8:50 AM EDT The negative predictive value of this diagnostic test is high and should only be used to consider de-escalating anti-MRSA therapy. A positive result may indicate colonization with MRSA and must be correlated clinically. Amanda Bermudez MD MICROBIOLOGY - GENERAL ORDERA BLES Final Result Performing Organization Address [facility]/ZIP Co de Phone Number [facility]
[address] [place] [address], * (ABNORMAL) Clostridioides difficile Toxin, PCR - Stool, Per Rectum (06/26/2025 12:46 AM EDT) Pathologist [facility] Toxigenic C. difficile by PCR Detected( A) Not Detected CEPHEID GENEXPERT 06/26/2025 7:55 AM EDT [facility] Stool Specimen from rectum / Unknown Collection / Unknown 06/26/2025 12:46 AM EDT 06/26/2025 1:08 AM EDT [facility] - 06/26/2025 7:55 AM EDT DNA from a toxigenic strain of C.difficile has been detected. Ally Pryor APRN MICROBIOLOGY - GENERAL ORDER SEB Final Result Performing Organization Address City/[facility]/ZIP Co de Phone Number [facility]
[address] [place] [address], * (ABNORMAL) Gastrointestinal Panel, PCR - Stool, Per Rectum (06/26/2025 12:46 AM EDT) Pathologist [facility] Campylobacter Not Detected Not Detected BIOFIRE TORCH 06/26/2025 8:50 AM EDT [facility] Plesiomonas shigelloides Not Detected Not Detected BIOFIRE TOR 06/26/2025 8:50 AM EDT [facility] Salmonella Not Detected Not Detected BIOFIRE TOR 06/26/2025 8:50 AM EDT [facility] Vibrio Not Detected Not Detected BIOFIRE [facility] 06/26/2025 8:50 AM EDT [facility] Vibrio cholerae Not Detected Not Detected BIOFIRE [facility] 06/26/2025 8:50 AM EDT [facility] Yersinia enterocolitica Not Detected Not Detected BIOFIRE [facility] 06/26/2025 8:50 AM EDT [facility] Enteroaggregative E. coli (EAEC) Not Detected Not Detected BIOFIRE [facility] 06/26/2025 8:50 AM EDT [facility] Enteropathogenic E. coli (EPEC) Not Detected Not Detected BIOFIRE [facility] 06/26/2025 8:50 AM EDT [facility] Enterotoxigenic E. coli (ETEC) lt/st Not Detected Not Detected BIOFIRE [facility] 06/26/2025 8:50 AM EDT [facility] Shiga-like toxin-producing E. coli (STEC) stx1/stx2 Not Detected Not Detected BIOFIRE [facility] 06/26/2025 8:50 AM EDT [facility] Shigella/Enteroinv asive E. coli (EIEC) Not Detected Not Detected BIOFIRE [facility] 06/26/2025 8:50 AM EDT [facility] Cryptosporidium Not Detected Not Detected BIOFIRE [facility] 06/26/2025 8:50 AM EDT [facility] Cyclospora cayetanensis Not Detected Not Detected BIOFIRE [facility] 06/26/2025 8:50 AM EDT [facility] Entamoeba histolytica Not Detected Not Detected BIOFIRE [facility] 06/26/2025 8:50 AM EDT [facility] Giardia lamblia Not Detected Not Detected BIOFIRE [facility] 06/26/2025 8:50 AM EDT [facility] Adenovirus F40/41 Not Detected Not Detected BIOFIRE TORCH 06/26/2025 8:50 AM EDT [facility] Astrovirus Not Detected Not Detected BIOFIRE TOR 06/26/2025 8:50 AM EDT [facility] Norovirus GI/GII Detected(A) Not Detected BIOFIRE TORCH 06/26/2025 8:50 AM EDT [facility] Comment:If a positive Norovi tramaine result is inconsistent with clinical presentation, the positive Norovirus result should be confirmed using another method. Rotavirus A Not Detected Not Detected BIOFIRE TOR 06/26/2025 8:50 AM EDT [facility] Sapovirus (I, II, IV or V) Not Detected Not Detected BIOFIRE [facility] 06/26/2025 8:50 AM EDT [facility] Stool Specimen from rectum / Unknown Collection / Unknown 06/26/2025 12:46 AM EDT 06/26/2025 1:08 AM EDT us Ally Pryor APRN MICROBIOLOGY - GENERAL ORDER SEB Final Result [facility]
[address] [place] [address], * (ABNORMAL) Blood Culture ID, PCR - Blood, Hand, Right (06/25/2025 8:30 PM EDT) Pathologist [facility] BCID, PCR Enterococcus faecium. Zee/B (vancomycin resistance gene) not detected. Identification by BCID2 PCR.(A) Negative by BCID PCR. Culture to Follow. BIOFIRE FILMARRAY 06/26/2025 9:02 PM EDT [facility] BOTTLE TYPE Anaerobic Bottle BIOFIRE TORCH 06/26/2025 9:02 PM EDT [facility] Blood Structure of right hand / Unknown Venipuncture / Unknown 06/25/2025 8:30 PM EDT 06/26/2025 3:22 AM EDT [facility] - 06/26/2025 9:02 PM EDT Infectious disease consultation is highly recommended to rule out distant foci of infection. Ally Pryor APRN MICROBIOLOGY - GENERAL ORDER SEB Final Result [facility]
[address] [place] [address], [place] [phone] * (ABNORMAL) Blood Culture - Blood, Hand, Right (06/25/2025 8:30 PM EDT) Blood Culture Enterococcus faecium(AA) MURRAY 06/29/2025 7:13 AM EDT [facility] Comment: Infectious disease consultation is highly recommended. Isolated from Anaerobic Bottle 06/29/2025 7:13 AM EDT [facility] Gram Stain Anaerobic Bottle Gram positive cocci in chains(AA) 06/29/2025 7:13 AM EDT [facility] Blood Structure of right hand / Unknown Venipuncture / Unknown 06/25/2025 8:30 PM EDT 06/26/2025 3:22 AM EDT [facility] - 06/29/2025 7:13 AM EDT [...] GENERAL ORDER SEB Edited Result - Final [facility]
[address] [place] [address], [place] [phone] [facility]
[address] [place] [address], [place] [phone] * (ABNORMAL) Urine Culture - Urine, Indwelling Urethral Catheter (06/25/2025 8:01 PM EDT) Urine Culture >100,000 CFU/mL Proteus mirabilis(A ) MURRAY 06/30/2025 10:01 AM EDT [facility] Urine (Indwelling Urethral Catheter) Collection / Unknown 06/25/2025 8:01 PM EDT 06/25/2025 8:11 PM EDT Narrative [facility] - 06/30/2025 10:01 AM EDT Colonization [...] MURRAY 16 ug/ml: Resistant Proteus mirabilis Ceftazidime MRURAY <=0.5 ug/ml: Susceptible Proteus mirabilis Ceftriaxone MURRAY [...] Sulfamethoxazole MURRAY >=320 ug/ml: Resistant us Ally Jeffers V CONSTRUCTION COST ESTIMATOR MICROBIOLOGY - GENERAL ORDER SEB Final Result [facility]
[address] [place] [address], [place] [phone] * (ABNORMAL) Urinalysis, Microscopic Only - Indwelling Urethral Catheter (06/25/2025 8:01 PM EDT) RBC, UA 6-10(A) None Seen, 0-2 /HPF 06/25/2025 8:29 PM EDT [facility] WBC, UA Too Numerous to Count(A) None Seen, 0-2 /HPF 06/25/2025 8:29 PM EDT [facility] Bacteria, UA 4+(A) None Seen /HPF 06/25/2025 8:29 PM EDT [facility] Squamous Epithelial Cells, UA 0-2 None Seen, 0-2 /HPF 06/25/2025 8:29 PM EDT [facility] Yeast, UA Moderate/2+ Budding Yeast(A) None Seen /HPF 06/25/2025 8:29 PM EDT [facility] Hyaline Casts, UA 7-12 None Seen /LPF 06/25/2025 8:29 PM EDT [facility] Methodology Manual Light Microscopy 06/25/2025 8:29 PM EDT [facility] Urine (Indwelling Urethral Catheter) Collection / Unknown 06/25/2025 8:01 PM EDT 06/25/2025 8:11 PM EDT us Ally Jeffers V, CONSTRUCTION COST ESTIMATOR URINE ORDERABLES Final Resul t [facility]
[address] [place] [address], [place] [phone] * (ABNORMAL) Urinalysis With Culture If Indicated - Indwelling Urethral Catheter (06/25/2025 8:01 PM EDT) Color, UA Yellow Yellow, Straw 06/25/2025 8:20 PM EDT [facility] Appearance, UA Turbid(A) Clear 06/25/2025 8:20 PM EDT [facility] pH, UA 6.0 5.0 - 8.0 06/25/2025 8:20 PM EDT [facility] Specific [place], UA 1.011 1.005 - 1.030 06/25/2025 8:20 PM EDT [facility] Glucose, UA Negative Negative 06/25/2025 8:20 PM EDT [facility] Ketones, UA Negative Negative 06/25/2025 8:20 PM EDT [facility] Bilirubin, UA Negative Negative 06/25/2025 8:20 PM EDT [facility] Blood, UA Large (3+)(A) Negative 06/25/2025 8:20 PM EDT [facility] Protein, UA Trace(A) Negative 06/25/2025 8:20 PM EDT [facility] Leuk Esterase, UA Large (3+)(A) Negative 06/25/2025 8:20 PM EDT [facility] Nitrite, UA Positive(A) Negative 06/25/2025 8:20 PM EDT [facility] Urobilinogen, UA 0.2 E.U./dL 0.2 - 1.0 E.U./dL 06/25/2025 8:20 PM EDT [facility] Urine (Indwelling Urethral Catheter) Collection / Unknown 06/25/2025 8:01 PM EDT 06/25/2025 8:11 PM EDT Narrative [facility] - 06/25/2025 8:20 PM EDT In absence of clinical symptoms, the presence of pyuria, bacteria, and/or nitrites on the urinalysis result does not correlate with infection. us Ally Pryor APRN URINE ORDERABLES Final Resul t [facility]
[address] [place] [address], [place] [phone] * CT Abdomen Pelvis With Contrast (06/25/2025 [...] Ferraro 06/25/2025 9:53 PM EDT Workstation ID: [id number] ORIGINAL REPORT: CT ABDOMEN PELVIS W CONTRAST [...] Ferraro 06/25/2025 7:55 PM EDT Workstation ID: [id number] Impressions 06/25/2025 7:55 PM EDT Impression: 1.De [...] Ferraro 06/25/2025 7:55 PM EDT Workstation ID: [id number] Narrative 06/25/2025 7:[address] ABDOMEN [...] No visualized aggressive osseous lesion. Procedure Note StevetNehemias MD - 06/25/2025 CT ABDOMEN PELVIS W [...] Ferraro 06/25/2025 7:55 PM EDT Workstation ID: [id number] us Ally Jeffers V, CONSTRUCTION COST ESTIMATOR IMG CT ORDERABLES Edited Res ult - [...] MD 06/25/2025 7:03 PM EDT Workstation ID: [id number] Narrative 06/25/2025 7:03 PM EDT XR FOOT [...] MD 06/25/2025 7:03 PM EDT Workstation ID: [id number] Ally Pryor APRN IMG DIAGNOSTIC IMAGING ORDER SEB Final Result * Telemetry Scan (06/25/2025 6:21 PM EDT) [facility] Onbase ECG ORDERABLES Final Result * Blood Culture - Blood, Arm, Left (06/25/2025 6:20 PM EDT) Blood Culture No growth at 5 days 06/30/2025 7:32 PM EDT [facility] Blood Structure of left upper limb / Unknown Venipuncture / Unknown 06/25/2025 6:20 PM EDT 06/25/2025 7:16 PM EDT Ally Pryor APRN MICROBIOLOGY - GENERAL ORDER SEB Final Result [facility]
[address] [place] [address], * (ABNORMAL) Wound Culture - Swab, Foot, Left (06/25/2025 6:18 PM EDT) Wound Culture Heavy growth (4+) Staphylococcus aureus, MRSA(A) MURRAY 06/29/2025 6:45 AM EDT [facility] Comment: Methicillin resistant Staphylococcus aureus, Patient may be an isolation risk. Wound Culture Moderate growth (3+) Morganella morganii ssp morganii(A) MURRAY 06/29/2025 6:45 AM EDT [facility] Wound Culture Moderate growth (3+) Proteus mirabilis ESBL(A) MURRAY 06/29/2025 6:45 AM EDT [facility] Comment: Consider infectious disease consult. Susceptibility results may not correlate to clinical outcomes. Gram Stain Few (2+) WBCs seen 06/29/2025 6:45 AM EDT [facility] Gram Stain Few (2+) Gram positive cocci in pairs, chains and clusters 06/29/2025 6:45 AM EDT [facility] Gram Stain Few (2+) Gram negative bacilli 06/29/2025 6:45 AM EDT [facility] Swab Structure of left foot / [...] MICROBIOLOGY - GENERAL ORDER SEB Final Result [facility]
[address] [place] [address], [place] [phone] [facility]
[address] [place] [address], [place] [phone] * (ABNORMAL) CBC Auto Differential (06/25/2025 6:17 PM EDT) [facility] WBC 9.96 3.40 - 10.80 10*3/mm3 06/25/2025 6:34 PM EDT [facility] RBC 3.91(L) 4.14 - 5.80 10*6/mm3 06/25/2025 6:34 PM EDT [facility] Hemoglobin 8.9(L) 13.0 - 17.7 g/dL 06/25/2025 6:34 PM EDT [facility] Hematocrit 29.8(L) 37.5 - 51.0 % 06/25/2025 6:34 PM EDT [facility] MCV 76.2(L) 79.0 - 97.0 fL 06/25/2025 6:34 PM EDT [facility] MCH 22.8(L) 26.6 - 33.0 pg 06/25/2025 6:34 PM EDT [facility] MCHC 29.9(L) 31.5 - 35.7 g/dL 06/25/2025 6:[facility] RDW 16.6(H) 12.3 - 15.4 % 06/25/2025 6:34 [facility] RDW-SD 45.8 37.0 - 54.0 fl 06/25/2025 6:34 PM EDT [facility] MPV 9.5 6.0 - 12.0 fL 06/25/2025 6:34 PM EDT [facility] Platelets 281 140 - 450 10*3/mm3 06/25/2025 6:34 [facility] Neutrophil % 70.8 42.7 - 76.0 % 06/25/2025 6:34 PM [facility] Lymphocyte % 14.9(L) 19.6 - 45.3 % 06/25/2025 6:34 PM [facility] Monocyte % 10.1 5.0 - 12.0 % 06/25/2025 6:34 PM [facility] Eosinophil % 3.2 0.3 - 6.2 % 06/25/2025 6:34 PM [facility] Basophil % 0.5 0.0 - 1.5 % 06/25/2025 6:34 PM [facility] Immature Grans % 0.5 0.0 - 0.5 % 06/25/2025 6:34 PM [facility] Neutrophils, Absolute 7.05(H) 1.70 - 7.00 10*3/mm3 06/25/2025 6:34 PM [facility] Lymphocytes, Absolute 1.48 0.70 - 3.10 10*3/mm3 06/25/2025 6:34 PM [facility] Monocytes, Absolute 1.01(H) 0.10 - 0.90 10*3/mm3 06/25/2025 6:34 PM [facility] Eosinophils, Absolute 0.32 0.00 - 0.40 10*3/mm3 06/25/2025 6:34 PM [facility] Basophils, Absolute 0.05 0.00 - 0.20 10*3/mm3 06/25/2025 6:34 PM EDT [facility] Immature Grans, Absolute 0.05 0.00 - 0.05 10*3/mm3 06/25/2025 6:34 PM EDT [facility] nRBC 0.0 0.0 - 0.2 /100 WBC 06/25/2025 6:34 PM EDT [facility] Blood Venipuncture / Unknown 06/25/2025 6:17 PM EDT 06/25/2025 6:30 PM EDT Ally Pryor APRN LAB BLOOD ORDERABLES Final R esult [facility]
[address] [place] [address], [place] [phone] * (ABNORMAL) C-reactive Protein (06/25/2025 6:17 PM EDT) C-Reactive Protein 4.34(H) 0.00 - 0.50 mg/dL 06/25/2025 7:03 PM EDT [facility] Blood Venipuncture / Unknown 06/25/2025 6:17 PM EDT 06/25/2025 6:30 PM EDT Ally Pryor APRN LAB BLOOD ORDERABLES Final R esult [facility]
[address] [place] [address], [place] [phone] * Procalcitonin (06/25/2025 6:17 PM EDT) Procalcitonin 0.12 0.00 - 0.25 ng/mL 06/25/2025 7:03 PM EDT [facility] Blood Venipuncture / Unknown 06/25/2025 6:17 PM EDT 06/25/2025 6:30 PM EDT Narrative [facility] - 06/25/2025 7:03 PM EDT As [...] Day 4 values are available. Refer to http://www.qxnaxd-cez-fiwbpioilt.com Change in PCT <=80% A decrease of [...] APRN LAB BLOOD ORDERABLES Final R esult [facility]
[address] [place] [address], * Lactic Acid, Plasma (06/25/2025 6:17 PM EDT) Pathologist [facility] Lactate 1.7 0.5 - 2.0 mmol/L 06/25/2025 6:55 PM EDT [facility] Comment:Falsely depressed re sults may occur on samples drawn from patients receiving N-Acetylcysteine (NAC) or Metamizole. Blood Venipuncture / Unknown 06/25/2025 6:17 PM EDT 06/25/2025 6:30 PM EDT us Ally Pryor APRN LAB BLOOD ORDERABLES Final R esult [facility]
[address] [place] [address], * (ABNORMAL) Comprehensive Metabolic Panel (06/25/2025 6:17 PM EDT) Glucose 173(H) 65 - 99 mg/dL 06/25/2025 7:03 PM EDT [facility] BUN 27.3(H) 8.0 - 23.0 mg/dL 06/25/2025 7:03 PM EDT [facility] Creatinine 1.21 0.76 - 1.27 mg/dL 06/25/2025 7:03 PM EDT [facility] Sodium 138 136 - 145 mmol/L 06/25/2025 7:03 PM EDT [facility] [facility] Potassium 4.4 3.5 - 5.2 mmol/L 06/25/2025 7:03 PM EDT [facility] Chloride 106 98 - 107 mmol/L 06/25/2025 7:03 PM EDT [facility] CO2 21.2(L) 22.0 - 29.0 mmol/L 06/25/2025 7:03 PM EDT [facility] Calcium 8.3(L) 8.6 - 10.5 mg/dL 06/25/2025 7:03 PM EDT [facility] Total Protein 7.2 6.0 - 8.5 g/dL 06/25/2025 7:03 PM EDT [facility] Albumin 3.2(L) 3.5 - 5.2 g/dL 06/25/2025 7:03 PM EDT [facility] ALT (SGPT) 14 1 - 41 U/L 06/25/2025 7:03 PM EDT [facility] AST (SGOT) 15 1 - 40 U/L 06/25/2025 7:03 PM EDT [facility] Alkaline Phosphatase 127(H) 39 - 117 U/L 06/25/2025 7:03 PM EDT [facility] Total Bilirubin 0.2 0.0 - 1.2 mg/dL 06/25/2025 7:03 PM EDT [facility] Globulin 4.0 gm/dL 06/25/2025 7:03 PM EDT [facility] Comment:Calculated Result A/G Ratio 0.8 g/dL 06/25/2025 7:03 PM EDT [facility] BUN/Creatinine Ratio 22.6 7.0 - 25.0 06/25/2025 7:03 PM EDT [facility] Anion Gap 10.8 5.0 - 15.0 mmol/L 06/25/2025 7:03 PM EDT [facility] eGFR 64.0 >60.0 mL/min/1.7 3 06/25/2025 7:03 PM EDT [facility] Blood Venipuncture / Unknown 06/25/2025 6:17 PM EDT 06/25/2025 6:30 PM EDT [facility] - 06/25/2025 7:03 PM EDT [...] APRN LAB BLOOD ORDERABLES Final R esult [facility]
[address] [place] [address], documented in this encounter Visit Diagnoses Diagnosis [...] Unspecified essential hypertension 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 BPH without obstruction/lower urinary tract symptoms GERD without esophagitis Esophageal reflux Seizure disorder Unspecified epilepsy without mention of intractable epilepsy Bilateral inguinal hernia Inguinal hernia without mention of obstruction or gangrene, bilateral, (not specified as recurrent) Gastroenteritis due to norovirus PAD (peripheral artery disease) Unspecified peripheral vascular disease Wound infection Posttraumatic wound infection not elsewhere classified documented in this encounter Admitting Diagnoses Diagnosis [...] Given 08/01/2025 5:41 PM EST 1,000 mg aluminum-magnesium hydroxide-simethicone (MAALOX MAX) 400-400-40 MG/5ML [...] AM EST 500 mg baclofen (LIORESAL) tablet 5 mg 5 [...] movement after 12 hours. Hold for diarrhea bupivacaine (PF) (MARCAINE) 0.5 % injection As Needed, Starting on Wed07/03/25 at 1509 Given 07/03/2025 3:09 PM EDT 30 mL carvedilol (COREG) tablet 3.125 mg 3.125 mg, [...] Given 07/31/2025 9:14 AM EST 75 mg dextrose (D50W) (25 g/50 mL) IV injection [...] Daily PRN, Rash, Irritation, Itching, Starting on Wed07/07/25 at 0100, Apply to affected area as [...] dose on Wed06/26/25 at 0900, Group 2 ([place]) Hazardous Drug - Reproductive Risk Only - [...] Given 07/31/2025 9:17 AM EST 1 mg gabapentin (NEURONTIN) capsule 400 mg 400 mg, Oral, Every 8 Hours Scheduled, First dose (after last modification) on Wed07/24/25 at 2200, ([facility]) Given 08/02/2025 1:51 PM EST 400 mg Given 08/01/2025 9:35 PM EST 400 mg Given 08/01/2025 12:52 PM EST 400 mg glucagon (GLUCAGEN) injection 1 mg 1 mg, Subcutaneous, Every 15 Minutes PRN, Low Blood Sugar, Blood Glucose Less Than 70 - Patient Without IV Access - Unresponsive, NPO or Unable To Safely Swallow, Starting on 07/14/25 at 1458, Reconstitute powder for injection by adding 1 mL of application architect manager-supplied sterile diluent or sterile water for injection [...] (after last modification) on Wed07/26/25 at 2100, ([facility]) Given 08/01/2025 9:35 PM EST 22 Units Left Arm Given 07/31/2025 9:52 PM EST 22 Units Ri ght Lower Abdomen Given 07/30/2025 9:05 PM EST 22 Units Ri ght Lower Abdomen Insulin Lispro [...] mg/dL - 7 units & Call Provider ([facility]) Caution: Look alike/sound alike drug alert([facility]) Given 08/01/2025 5:42 PM EST 2 Units Le ft Arm Given 07/31/2025 5:09 PM EST 2 Units Ri ght Lower Abdomen Given 07/29/2025 5:56 PM EST 2 Units Ri ght Arm iodixanol (VISIPAQUE) 320 MG/ML injection As Needed, Starting on Wed07/03/25 at 1615 Given 07/03/2025 4:15 PM EDT 15 mL ipratropium-albuterol (DUO-NEB) nebulizer solution 3 mL 3 mL, Nebulization, Every 6 Hours PRN, Shortness of Air, Wheezing, Starting on Wed06/26/25 at 0130, Include Respiratory Treatment Education lamoTRIgine (LaMICtal) tablet 100 mg 100 mg, [...] Given 07/30/2025 9:04 PM EST 250 mg methenamine (HIPREX) tablet 1 g 1 g, Oral, 2 Times Daily With Meals, First dose on Wed06/26/25 at 0800 Given 08/02/2025 8:25 AM EST 1 g Given 08/01/2025 5:41 PM EST 1 g Given 08/01/2025 8:23 AM EST 1 g multivitamin with minerals 1 tablet 1 tablet, Oral, Daily, First dose on Wed06/26/25 at 0900, ([facility]) Given 08/02/2025 8:24 AM EST 1 tablet Given 08/01/2025 8:24 AM EST 1 tablet Given 07/31/2025 9:18 AM EST 1 tablet ondansetron (ZOFRAN) injection 4 mg 4 mg, [...] Given 08/02/2025 10:45 AM EST 15 mg polyethylene glycol (MIRALAX) packet 17 g 17 [...] Given 07/27/2025 12:52 PM EST 2 tablets sodium chloride 500 mL with heparin (porcine) 5000 UNIT/ML 1,000 Units mixture As Needed, Starting on Wed07/03/25 at 1509 Given 07/03/2025 3:09 PM EDT thiamine (VITAMIN B-1) tablet 100 mg 100 mg, Oral, Daily, First dose on Wed07/26/25 at 1500 Given 08/02/2025 8:23 AM EST 100 mg Given 08/01/2025 8:22 AM EST 100 mg Given 07/31/2025 9:18 AM EST 100 mg vancomycin (VANCOCIN) capsule 125 mg 125 mg, Oral, Weekly, First dose on Wed08/01/25 at 0900, For 7 doses, Do not crush or chew the capsules or tablets. Contact Pharmacy if needed., Indications: Clostridioides Difficile InfectionIndications:Clostridioides Difficile Infection Given 08/01/2025 8:27 AM EST 125 mg ziprasidone (GEODON) capsule 20 mg 20 mg, Oral, Nightly, First dose on Wed07/24/25 at 2100, May cause prolongation of QT interval. Take with food. Group 2 ([place]) Hazardous Drug - Reproductive Risk Only - [...] IV. Max dose 40 mg/day. Group 2 ([place]) Hazardous Drug - Reproductive Risk Only - See Handling Guide Given 07/24/2025 10:03 AM EST 10 mg Le ft Deltoid Given 07/22/2025 5:48 AM EST 10 mg L eft Deltoid Given 07/21/2025 1:08 PM EST 10 [...] IV. Max dose 40 mg/day. Group 2 ([place]) Hazardous Drug - Reproductive Risk Only - [...] anticoagulation 0917 (Given - Provider: Carolynn Leyva RN)2152 (Given - Provider: Lou Logan RN) 0823 (Given - Provider: Carolynn Leyva RN)2135 (Given - Provider: Juliet Silverio RN) 08 (Given - Provider: Sim Dale, RN) ascorbic acid (VITAMIN C) tablet 500 mg [...] upset occurs. 0917 (Given - Provider: Carolynn Leyva, JESSEE)215 (Given - Provider: Lou Logan, JESSEE) 0824 (Given - Provider: Carolynn Leyva RN)213 (Given - Provider: Juliet Silverio RN) 0824 [...] RN) 0822 (Given - Provider: Carolynn Leyva RN)174 (Given - Provider: Carolynn Leyva, JESSEE) 0825 [...] at 0930 0612 (Given - Provider: Lou Logan, JESSEE)0638 (Canceled Entry - Provider: Lou Logan, JESSEE)1709 (Given - Provider: Carolynn Leyva RN) 0602 (Given - Provider: Lou Logan, RN)0635 (Canceled Entry - Provider: Lou Logan, RN)1742 (Given - Provider: Carolynn Leyva RN) 0827 (Not Given - Provider: Sim Dale, RN - Reason: Patient/family refused) finasteride (PROSCAR) tablet 5 mg 5 mg, Oral, Daily, First dose on Wed06/26/25 at 0900, Group 2 ([place]) Hazardous Drug - Reproductive Risk Only - See Handling Guide 0917 (Given - Provider: Carolynn Leyva, RN) 0822 (Given - Provider: Carolynn Leyva, RN) 0823 (Given - Provider: Sim Dale, RN) folic acid (FOLVITE) tablet 1 mg 1 mg, Oral, Daily, First dose on Wed06/26/25 at 0900 0917 (Given - Provider: Carolynn Leyva RN) 0823 (Given - Provider: Carolynn Leyva RN) 0823 (Given - Provider: Sim Dale, JESSEE) gabapentin (NEURONTIN) capsule 400 mg 400 mg, Oral, Every 8 Hours Scheduled, First dose (after last modification) on Wed07/24/25 at 2200, ([facility]) 0612 (Given - Provider: Lou Logan RN)1435 (Given - Provider: Carolynn Leyva RN)2152 (Given - Provider: Lou Logan, JESSEE) 0602 (Given - Provider: Lou Logan RN)1252 (Given - Provider: Carolynn Leyva RN)1315 (Canceled Entry - Provider: Carolynn Leyva RN)2135 (Given - Provider: Juliet Silverio, JESSEE) 0529 (Not Given - Provider: Juliet Silverio, RN - Reason: Patient/family refused)1351 (Given - Provider: Sim Dale, JESSEE) insulin glargine (LANTUS, SEMGLEE) injection 22 Units 22 Units, Subcutaneous, Nightly, First dose (after last modification) on Wed07/26/25 at 2100, ([facility]) 2152 (Given - Provider: Lou Logan RN) 2135 (Given - Provider: Juliet Silverio, RN) Insulin Lispro (humaLOG) injection 2-7 Units [...] mg/dL - 7 units & Call Provider ([facility]) Caution: Look alike/sound alike drug alert([facility]) 0918 (Not Given - Provider: Carolynn Leyva RN - Reason: Order parameters not met)1217 [...] Daily, First dose on Wed06/26/25 at 0900, ([facility]) 0918 (Given - Provider: Carolynn Leyva RN) 0824 (Given - Provider: Carolynn Leyva RN) 0824 (Given - Provider: Sim Dale, JESSEE) oxyCODONE (ROXICODONE) immediate release tablet 10 mg [...] Lou Logan RN)0612 (Given - Provider: Lou Logan RN)0916 (Given - Provider: Carolynn Leyva RN)1435 (Given - Provider: Carolynn Leyva RN)1709 (Given - Provider: Carolynn Leyva RN)2151 (Given - Provider: Lou Logan RN) 0139 (Given - Provider: Lou Logan RN)0602 (Given - Provider: Lou Logan RN)0823 (Given - Provider: Carolynn Leyva RN)1251 (Given - Provider: Carolynn Leyva RN)1741 (Given - Provider: Caorlynn Leyva RN)2135 (Given - Provider: Juliet Silverio RN) 0031 (Given - Provider: Juliet Silverio RN)0530 (Not Given - Provider: Juliet Silverio RN - Reason: Patient/family refused)0824 (Given - Provider: Sim Dale, JESSEE)1351 (Given - Provider: Sim Dale, JESSEE) thiamine (VITAMIN B-1) tablet 100 mg 100 mg, Oral, Daily, First dose on Wed07/26/25 at 1500 0918 (Given - Provider: Carolynn Leyva RN) 0822 (Given - Provider: Carolynn Leyva RN) 0823 (Given - Provider: Sim Dale, JESSEE) vancomycin (VANCOCIN) capsule 125 mg ()(Linked Group [...] Pharmacy if needed., Indications: Clostridioides Difficile Infection 08 (Given - Provider: Carolynn Leyva RN) ziprasidone (GEODON) capsule 20 mg(Linked Group 2) 20 mg, Oral, Nightly, First dose on Wed07/24/25 at 2100, May cause prolongation of QT interval. Take with food. Group 2 ([place]) Hazardous Drug - Reproductive Risk Only - [...] IV. Max dose 40 mg/day. Group 2 ([place]) Hazardous Drug - Reproductive Risk Only - [...] Daily PRN, Rash, Irritation, Itching, Starting on Wed07/07/25 at 0100, Apply to affected area as needed Caution: Look alike/sound alike drug alert. ([facility]) glucagon (GLUCAGEN) injection 1 mg 1 mg, Subcutaneous, Every 15 Minutes PRN, Low Blood Sugar, Blood Glucose Less Than 70 - Patient Without IV Access - Unresponsive, NPO or Unable To Safely Swallow, Starting on 07/14/25 at 1458, Reconstitute powder for injection by adding 1 mL of application architect manager-supplied sterile diluent or sterile water for injection to a vial containing 1 mg of the drug, to provide solutions containing 1 mg/mL. Shake vial gently to dissolve. influenza vac split high-dose (FLUZONE HIGH DOSE) injection 0.5 mL 0.5 mL, Intramuscular, During Hospitalization, Immunization, Starting on Wed06/30/25 at 1421, For 1 dose, Do Not [...] IV. Max dose 40 mg/day. Group 2 ([place]) Hazardous Drug - Reproductive Risk Only - [...] QT interval. Take with food. Group 2 ([place]) Hazardous Drug - Reproductive Risk Only - [...] IV. Max dose 40 mg/day. Group 2 ([place]) Hazardous Drug - Reproductive Risk Only - [...] documented as of this encounter Care Teams Carbon Cutter Relationship Specialty Start Date End Date Gustavo Mehta MD [facility] [place] [address] [address] PCP - General Adolescent Medicine 07/14/23 documented as of this encounter
--- OUTSIDE RECORDS SUMMARY | 2025-07-03 13:17 | XMS_ITS | Encounter Summary ---
[facility] Address [address] [place] [address] Care Team Providers Care Production Gear Cutter Name Role Phone Gustavo Leggett MD Primary Care Provider + [phone] Reason for Visit * Auth/Cert Specialty Diagnoses / Procedures Referred By Ema crow Referred To Contact Diagnoses Cellulitis Referral ID Status Reason Start Date Expiration Date Visits Re quested Visits Authorized [id number] 1 1 Encounter Details Date Type Department Care Team (Late st Contact Info) Description 07/03/2025 2:17 PM EDT Anesthesia Event [facility] OR [address] [place] [address] David Harrison MD [address] [place] [address] Rocio Anderson CRNA [address] [place] [address] Anesthesia Record Procedure Summary Procedure Name Responsible Anesthesiologist Anesthesia Start Time Anesthesia Stop Time ARTERIOGRAM LOWER EXTREMITY (Left: Leg Lower) David Harrison MD 07/03/25 1417 07/03/25 1647 Events Date Time Event Comment 07/03/2025 1336 1345 AN Equip Check 1417 An Start The patient was reevaluated immediately before moderate or deep sedation use and before anesthesia induction. 1417 An Start Data 1425 An Induction 1428 An Intubation 1530 Anes Handoff I, Rocio Anderson CRNA, attest that I have reviewed all the significant information with the next attending assuming care of this patient. 1540 An Extubation 1540 Quick Note 1540 Quick Note Pacu hold 1545 Start Supplemental O2 6l/m f jeffery mask on PACU hold 1600 Anes Handoff IKallie CRNA, attest that I have reviewed all the significant information with the next attending assuming care of this patient. 1631 an stop data 1636 Quick Note Patient exhibit ing uncontrolled movement of upper extremities. Non-responsive, but breathing well. Dr. Smiley notified, patient was given 40 mg propofol and activity stopped. Still ventilating well. Agreed to proceed to PACU. Daphne Ferrari CRNA 1647 Handoff to RN The following has been completed: 1. Identification of Patient, pryor family member(s) or patient surrogate 2. Identification of the responsible Practitioner (primary service) 3. Discussion of the pertinent/attainable medical history 4. Discussion of the surgical/procedure course (procedure, reason for surgery, procedure performed) 5. Intraoperative anesthetic management and issue/concerns to include things such as airway, hemodynamics, narcotic, sedation level and paralytic management and intravenous fluids/blood products and urine output during the procedure 6. Expectations/Plans for the early post-procedure period to include things such as anticipated course (anticipatory guidance), complications, need for laboratory or ECG and medication administration 7. Opportunity for questions and acknowledgment of understanding of report from the receiving PACU/ICU team 1647 An Stop Meds Name Total lidocaine PF 1% 1 % 50 mg propofol 10 MG/ML 240 mg lidocaine 4 % 1 each heparin (porcine) 1000 UNIT/ML 9,000 Uni ts rocuronium 50 MG/5ML 50 mg ondansetron 2 mg/mL 4 mg dexAMETHasone 4 MG/ML 4 mg meropenem (MERREM) 500 mg in sodium chlo ride 0.9 % 100 mL MBP 500 mg phenylephrine 10 MG/ML 100 mcg sugammadex 200 MG/2ML 200 mg ePHEDrine Sulfate (Pressors) 50 MG/ML 20 mg lactated ringers infusion 500 mL * Agents Name O2 N2O Air Sevoflurane Inspired Sevoflurane * Blood No blood administrations on file. Lines, Drains, and Airways Type Details Placement Removal Residual Limb Assessment 01/27/24; transfemoral (above knee), right 01/27/24 0000 by Zakiya Lezama RN Wound 01/28/24; N; Left; anterior; second toe; Incision 01/28/24 0000 by Henrietta Mathis RN Wound Y; Left; posterior; heel; Pressure inj 08/31/24 1935 by Wound 06/26/25; 0150; Y; L eft; medial; coccyx; Pressure Inj 06/26/25 0150 by Kristan Morgan RN Wound 06/26/25; 0150; Y; L eft; posterior; greater trochanter; Pressure Inj 06/26/25 0150 by Kristan Morgan RN Wound 06/26/25; 0150; Y; R ight; posterior; greater trochanter; Pressure Inj 06/26/25 0150 by Kristan Morgan RN NPWT (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 Wound Therapy) 07/03/25; LEFT FOOT; PER ILMELVIN 07/03/25 0000 by Alessandra Gregory RN Wound 01/15/24; 194; Y; L eft; lower; leg; Other (cellulitis); Converged; 07/19/25; 0800 01/15/24 1941 by Mary Griffith RN 07/19/25 0800 by Leonie Kirby RN Wound 01/16/24; 0800; Y; c occyx (perineum, coccyx); MASD; 07/17/25; 0800 01/16/24 0800 by Shahnaz Ramos RN 07/17/25 0800 by Maxine Webb RN Wound 01/25/24; 1909; Righ t; other (see comments) (inner); gluteal; Skin tear; 07/16/25; 0800 01/25/24 1909 by Jeff Purcell RN 07/16/25 0800 by Maxine Webb RN Wound 09/11/24; 1317; Left ; lower; arm; Abrasion; 07/16/25; 0800 09/11/24 1317 by Vishnu Baltazar RN 07/16/25 0800 by Maxine Webb RN Urethral Catheter Placement Date: 06/13 12/05; Placement Time: 1957; Inserted by: timo perez; Type: Non-latex; Size: 24 Fr.; Balloon Size: 10 mL; Urine Returned: Yes; Removal Date: 07/14/25 06/25/25 1958 by Timo Donovan RN 07/14/25 0000 by Jacqueline Proctor RN PICC Single Lumen Placement Date: 06/13 03/07; Placement Time: 1213; Size: 4; Description: [id number]; Length: 44 cm; Orientation: Right; Location: Brachial; Site Prep: Chlorhexidine; Local Anesth: Injectable; Initial Exposed Catheter: 0 cm; Inserted By: Silva Villegas RN; Insertion Attempts: 1; Patient Tolerance: Tolerated well; Placement Verification: ECG tip confirmation system; Removal Date: 07/14/25 06/28/25 1213 by Luz Monahan RN 07/14/25 0000 by Jacqueline Proctor RN Arterial Sheath 07/03/25; 6 Fr.; Rig ht; Femoral; DR [place]; Injectable; Chlorhexidine isopropyl alcohol; ANGIOSEAL; 07/03/25; 1526 07/03/25 0000 by Alessandra Gregory RN 07/03/25 1526 by Alessandra Gregory RN Wound 07/03/25; N; Right; anterior; groin; Surgical; Puncture; Healed; 07/19/25; 0800 07/03/25 0000 by Alessandra Gregory RN 07/19/25 0800 by Leonie Kirby RN ETT Placement Date: 06/14 10/07; Placement Time: 1428 (created via procedure documentation); Blade Size: 3; Location: Oral; Removal Date: 07/03/25; Removal Time: 1540 07/03/25 1428 by Rocio Anderson CRNA 07/03/25 1540 by Rocio Anderson CRNA Wound 07/03/25; 1535; Righ t; anterior; groin; Traumatic; Skin Tear; Converged; 07/19/25; 0800 07/03/25 1535 by Alessandra Gregory RN 07/19/25 0800 by Leonie Kirby RN documented in this encounter Social History Tobacco Use Types Packs/Day Years [...] and heating? Not hard at all 06/26/2025 [facility] - Occupational [...] things needed for daily living? No 06/26/2025 [facility] Utilities Answer Date Recorded In the [...] GED or equivalent No 06/26/2025 Preferred Language Hebrew 06/26/2025 PHQ-2 Answer Date Recorded Patient Health Questionnaire-2 Score 1 06/26/2025 Sex and Gender Information Value Date Recorded Sex Assigned at Not on file Legal Sex Male 1:18 PM EDT Gender Identity Not on file Sexual Orientation Not on file documented as of this encounter OR Notes * Anesthesia Postprocedure Evaluation - Kailash Ferrari CRNA - 07/03/2025 4:47 PM EDT Patient: Vitaly Pool Procedure Summary Date: 07/03/25 [facility] / [facility] Anesthesia Start: 1417 Anesthesia Stop: 164 Procedures: ARTERIOGRAM LOWER EXTREMITY (Left: Leg Lower) DEBRIDEMENT WOUND, PLACEMENT OF WOUND VAC (Left: Leg Lower) Diagnosis: PAD (peripheral artery disease) Wound infection (PAD (peripheral artery disease) [I73.9]) (Wound infection [T14.8XXA, L08.9]) Surgeons: Vaughn Hollingsworth DO Provider: David Harrison MD Anesthesia Type: MAC ASA Status: 3 Anesthesia Type: MAC Vitals Vitals Value Taken Time BP Temp Pulse 78 07/03/25 16:46 Resp SpO2 96 % 07/03/25 16:46 Vitals shown include unfiled device data. Post Anesthesia Care and Evaluation Patient location during evaluation: PACU Patient participation: complete - patient participated Level of consciousness: lethargic and obtunded/minimal responses Pain score: 0 Pain management: adequate Airway patency: positional obstruction Anesthetic complications: No anesthetic complications PONV Status: none Cardiovascular status: hemodynamically stable and acceptable Respiratory status: nonlabored ventilation, acceptable and face mask Hydration status: acceptable Comments: Dr. Smiley to check in on patient for seizure like activity. * Anesthesia Procedure Notes - Rocio Anderson CRNA - 07/03/2025 2:35 PM EDT Associated Order(s): Airway Airway Reason: elective Date/Time: 07/03/2025 2:28 PM Airway not difficult General Information and Staff Patient location during procedure: OR DRAW OPERATOR/CAA: Rocio Anderson CRNA Indications and Patient Condition Indications for airway management: airway protection Preoxygenated: yes MILS not maintained throughout Mask difficulty assessment: 0 - not attempted Final Airway Details Final airway type: endotracheal airway Successful airway: ETT Cuffed: yes Successful intubation technique: video laryngoscopy Endotracheal tube insertion site: oral Blade: Armstrong Blade size: 3 ETT size (mm): 8.0 Cormack-Lehane Classification: grade I - full view of glottis Placement verified by: chest auscultation and capnometry Measured from: lips ETT/EBT to lips (cm): 20 Number of attempts at approach: 1 Assessment: lips, teeth, and gum same as pre-op and atraumatic intubation Additional Comments Negative epigastric sounds, Breath sound equal bilaterally with symmetric chest rise and fall * Anesthesia Preprocedure Evaluation - David Harrison MD - 07/03/2025 1:34 PM EDT Anesthesia Evaluation Patient summary reviewed and Nursing notes reviewed NPO Solid Status: > 8 hours NPO Liquid Status: > 8 hours Airway Mallampati: I TM distance: >3 FB Neck ROM: full No difficulty expected Dental (+) edentulous Pulmonary (+) ,decreased breath sounds Cardiovascular Exercise tolerance: unable to assess Rhythm: irregular Rate: normal Neuro/Psych GI/Hepatic/Renal/Endo Musculoskeletal Abdominal Substance History CORRECTIONS OFFICER Other Anesthesia Plan ASA 3 MAC CODE STATUS: Code Status (Patient has no pulse and is not breathing): CPR (Attempt to Resuscitate) Medical Interventions (Patient has pulse or is breathing): Full Support Level Of Support Discussed With: Patient documented in this encounter Plan of Treatment Not on file documented as of this encounter Procedures Procedure Name Priority Date/Time Associated Diagnosis Comments ANESTHESIA INTUBATION Routine 07/03/2025 2:35 PM EDT documented in this encounter Results * BH AN ETT AIRWAY (07/03/2025 2:35 PM EDT) Narrative Rocio Anderson CRNA - 07/03/2025 2:35 PM EDT Rocio Anderson CRNA 07/03/2025 2:36 PM Airway Reason: elective Date/Time: 07/03/2025 2:28 PM Airway not difficult General Information and Staff Patient location during procedure: OR DRAW OPERATOR/CAA: Rocio Anderson CRNA Indications and Patient Condition Indications for airway management: airway protection Preoxygenated: yes MILS not maintained throughout Mask difficulty assessment: 0 - not attempted Final Airway Details Final airway type: endotracheal airway Successful airway: ETT Cuffed: yes Successful intubation technique: video laryngoscopy Endotracheal tube insertion site: oral Blade: Armstrong Blade size: 3 ETT size (mm): 8.0 Cormack-Lehane Classification: grade I - full view of glottis Placement verified by: chest auscultation and capnometry Measured from: lips ETT/EBT to lips (cm): 20 Number of attempts at approach: 1 Assessment: lips, teeth, and gum same as pre-op and atraumatic intubation Additional Comments Negative epigastric sounds, Breath sound equal bilaterally with symmetric chest rise and fall Rocio Anderson DRAW OPERATOR ANESTHESIA ORDERABLES Final Re sult documented in this encounter Visit Diagnoses Not on filedocumented in this encounter Administered Medications Inactive Administered Medications - up to 3 most recent administrations Medication Order MAR Action Action Date Dose Rate Site dexAMETHasone (DECADRON) injection Intravenous, As Needed, Starting on Wed07/03/25 at 1429 Given 07/03/2025 2:29 PM EDT 4 mg ePHEDrine Sulfate (Pressors) Intravenous, As Needed, Starting on Wed07/03/25 at 1504 Given 07/03/2025 3:04 PM EDT 10 mg Given 07/03/2025 2:55 PM EDT 10 mg heparin (porcine) injection Intravenous, As Needed, Starting on Wed07/03/25 at 1515 Given 07/03/2025 3:15 PM EDT 9,000 Units lactated ringers infusion 9 mL/hr, Intravenous, Once As Needed, Start prior to surgery, Starting on Wed07/03/25 at 1145, For 12 hours Restarted 07/03/2025 2:17 PM EDT New Bag 07/03/2025 11:45 AM EDT 9 mL/hr 9 mL/hr lidocaine (LTA KIT) 4 % laryngotracheal solution Topical, As Needed, Starting on Wed07/03/25 at 1428 Given 07/03/2025 2:28 PM EDT 1 each lidocaine PF 1% (XYLOCAINE) injection Intravenous, As Needed, Starting on Wed07/03/25 at 1425 Given 07/03/2025 2:25 PM EDT 50 mg meropenem (MERREM) 500 mg in sodium chloride 0.9 % 100 mL MBP 500 mg, Intravenous, Administer over 3 Hours, Every 6 Hours, First dose on Wed06/26/25 at 1600, For 237 doses, Indications: Skin and Soft Tissue Infection, UTI; Hx ESBLIndications:Skin and Soft Tissue Infection,UTI; Hx ESBL New Bag 07/24/2025 1:43 AM EST 500 mg New Bag 07/23/2025 9:31 PM EST 500 mg New Bag 07/23/2025 10:20 AM EST 500 mg ondansetron (ZOFRAN) injection Intravenous, As Needed, Starting on Wed07/03/25 at 1430 Given 07/03/2025 2:30 PM EDT 4 mg phenylephrine (GINA-SYNEPHRINE) injection Intravenous, As Needed, Starting on Wed07/03/25 at 1444 Given 07/03/2025 2:44 PM EDT 100 mcg propofol (DIPRIVAN) injection Intravenous, As Needed, Starting on Wed07/03/25 at 1425 Given 07/03/2025 4:38 PM EDT 40 mg Given 07/03/2025 2:25 PM EDT 200 mg rocuronium (ZEMURON) injection Intravenous, As Needed, Starting on Wed07/03/25 at 1426 Given 07/03/2025 2:26 PM EDT 50 mg sugammadex (BRIDION) injection Intravenous, As Needed, Starting on Wed07/03/25 at 1533 Given 07/03/2025 3:33 PM EDT 200 mg documented in this encounter Additional Health Concerns Infection Onset Date Last Indicated Resolved Time 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
[2025-08-06 15:35] VITALS: BP 160/87; PULSE 91; RESP 18; TEMP 36.6; O2SAT 99; BMI 34.0
--- NOTE | 2025-08-06 15:36 | CT_ITS ---
FINAL REPORT TECHNIQUE: Thin section axial images were obtained from the lung bases to the pubic symphysis without IV contrast. Coronal and sagittal reconstruction images were obtained from the axial data. Exam was performed using dose reduction technique. CLINICAL HISTORY: Possible broken ambrose catheter within penis/bladde COMPARISON: 05/07/2025 FINDINGS: The lung bases are clear. There are no obstructing renal or ureteral stones. There is no hydronephrosis or perinephric stranding. The gallbladder is present. The remaining unenhanced solid abdominal organs are unremarkable without acute abnormality. There is no evidence of small bowel obstruction. The appendix is not visualized, and there are no secondary signs of appendicitis. There is a left inguinal hernia containing proximal sigmoid colon. There is a fat-containing right inguinal hernia and a fat-containing umbilical hernia. An IVC filter is present. There are enlarged inguinal lymph nodes, nonspecific. There is bladder wall thickening, and cystitis is not excluded. There is no foreign body identified in the bladder or included portions of the penis and penile urethra. GI tract is without acute abnormality. There are enlarged inguinal lymph nodes, which are nonspecific. No acute osseous abnormality is identified. IMPRESSION: 1. There is no foreign body identified in the bladder or included portions of the penis and the penile urethra. 2. Bladder wall thickening is present, and cystitis is not excluded. 3. There is a left inguinal hernia containing proximal sigmoid colon. Reviewed, Interpreted and Dictated by Guerda Bermudez MD Transcribed by Latha Cunha Authenticated and [facility]
--- NOTE | 2025-08-06 15:37 | HMH.EDGENADL ---
Discharge Plan Disposition Patient Disposition: Home, Self-Care Prescriptions Prescriptions: No Action cefdinir 300 mg capsule PO Patient Comments: take 1 cap(s) orally every 12 hours for 14 days terbinafine HCl 250 mg tablet PO Patient Comments: take 1 tab(s) orally once a day 14 days folic acid 400 mcg tablet 0.4 mg PO DAILY linezolid 600 mg tablet 600 mg PO BID 10 Days Qty: 20 0RF carvedilol 3.125 mg tablet PO ONCE Patient Comments: TAKE ONE TABLET BY MOUTH WITH FOOD TWICE DAILY insulin glargine U-300 conc 300 unit/mL (1.5 mL) insulin pen SQ Patient Comments: inject 42 units subcutaneously once a day amiodarone 400 mg tablet See Rx Instructions .ROUTE .COMPLEX Qty: 180 3RF Dose Instruction: TAKE ONE TABLET BY MOUTH TWICE DAILY FOR ONE MONTH Rx Instructions: TAKE ONE TABLET BY MOUTH TWICE DAILY FOR ONE MONTH levofloxacin 750 mg tablet 750 mg PO DAILY 14 Days Qty: 14 0RF metoprolol succinate 25 mg Tablet Extended Release 24 Hr 25 mg PO DAILY Qty: 30 0RF clopidogrel [Plavix] 75 mg tablet 75 mg PO DAILY Qty: 30 0RF metoclopramide HCl 5 mg tablet 5 mg PO BIDWMEAL Patient Comments: take 1 tab(s) orally 2 times a day before meal 30 days gabapentin 100 mg Capsule 200 mg PO TID 30 Days Qty: 180 0RF Jardiance 10 mg Tablet 10 mg PO DAILY 30 Days Qty: 30 0RF Entresto 24-26 mg Tablet 1 tab PO BID 30 Days Qty: 60 0RF spironolactone 25 mg Tablet 25 mg PO DAILY 30 Days Qty: 30 0RF insulin glargine [Lantus Solostar U-100 Insulin] 100 unit/mL (3 mL) insulin pen 35 unit SQ HS 30 Days Qty: 0 0RF ondansetron HCl 4 mg tablet 4 mg PO Q8H PRN (Reason: nausea and vomiting) 4 Days Qty: 12 0RF furosemide 40 mg tablet 40 mg PO DAILY Patient Comments: TAKE ONE TABLET BY MOUTH ONCE DAILY aspirin 81 mg tablet,delayed release (DR/EC) 81 mg PO DAILY lamotrigine 100 mg tablet 100 mg PO BID Patient Comments: TAKE ONE TABLET BY MOUTH TWICE DAILY lamotrigine 150 mg tablet 150 mg PO HS Patient Comments: TAKE ONE TABLET BY MOUTH AT BEDTIME Rx Instructions: 150mg by mouth nightly with the 100mg tablet for seizures pantoprazole 40 mg Tablet,Delayed Release (Dr/Ec) 40 mg PO DAILY atorvastatin 40 mg tablet 40 mg PO HS Patient Comments: TAKE ONE TABLET BY MOUTH ONCE DAILY sennosides-docusate sodium [Stimulant Laxative Plus] 8.6-50 mg tablet 1 tab PO BID Patient Comments: TAKE ONE TABLET BY MOUTH TWICE DAILY baclofen 10 mg tablet 10 mg PO BIDP PRN (Reason: Muscle Spasms) Patient Comments: take 1 tab(s) orally 2 times a day as needed for muscle spasms 30 days Referrals Follow up/Referrals: Sherri Faust DPM [Primary Care Provider, Podiatry] - See instructions Activity Restrictions/Add. Instructions Additional Instructions/Restrictions: If you develop any new or worsening symptoms, or if you become concerned for your health for any reason, return to the emergency department for evaluation Clinical Impressions Clinical Impression: Malfunction of Ambrose catheter Instructions Patient Instructions: DI for Skin Abscess Print Language Print Language: German Discharge ED Provider: Alec Walker General Adult HPI General Chief complaint: Skin/Abscess/Foreign Body Stated complaint: ambrose Time Seen by Provider: 08/06/25 15:30 History of Present Illness HPI narrative: Vitaly Pool is a 70-year-old male with a history of diabetes mellitus, coronary artery disease, atrial flutter, followed by home health who presents to the emergency department for complaints of a possible dislodged/Retained Ambrose catheter. Patient states that he was recently seen at [facility] and had a new Ambrose catheter placed . Patient states that he sat up in bed on Wednesday and noticed that his Ambrose catheter was lying in the floor. He states that his Ambrose broke off and they could not find the missing piece. It is unclear exactly what piece is missing. He denies any hematuria or pain in his genital area. Related Data Home Medications ?Medication ?Instructions ?Recorded ?Confirmed aspirin 81 mg tablet,delayed 81 mg PO DAILY 04/20/23 05/21/25 release furosemide 40 mg tablet 40 mg PO DAILY Fluid 04/20/23 05/21/25 lamotrigine 100 mg tablet 100 mg PO BID 04/20/23 05/21/25 lamotrigine 150 mg tablet 150 mg PO HS 04/21/23 05/21/25 atorvastatin 40 mg tablet 40 mg PO HS 03/03/24 05/21/25 Held on 04/29/24. Instructions: consider stopping due to limited group home benefit given patient condition and prognosis pantoprazole 40 mg tablet,delayed 40 mg PO DAILY 03/03/24 05/21/25 release metoclopramide HCl 5 mg tablet 5 mg PO BIDWMEAL 03/27/24 05/21/25 baclofen 10 mg tablet 10 mg PO BIDP PRN Muscle Spasms 04/22/24 05/21/25 sennosides 8.6 mg-docusate sodium 1 tab PO BID 04/22/24 05/21/25 50 mg tablet (Stimulant Laxative Plus) cefdinir 300 mg capsule mg PO 06/05/24 05/21/25 terbinafine HCl 250 mg tablet mg PO 06/05/24 05/21/25 folic acid 400 mcg tablet 0.4 mg PO DAILY 06/20/24 05/21/25 carvedilol 3.125 mg tablet mg PO ONCE 06/18/25 06/18/25 insulin glargine U-300 conc 300 unit SQ 06/18/25 06/18/25 unit/mL (1.5 mL) subcutaneous pen Previous Rx's ?Medication ?Instructions ?Recorded clopidogrel 75 mg tablet (Plavix) 75 mg PO DAILY #30 tabs 06/08/23 metoprolol succinate 25 mg 25 mg PO DAILY #30 tabs 06/08/23 tablet,extended release 24 hr gabapentin 100 mg capsule 200 mg (2 x 100 mg) PO TID 30 days 04/01/24 #180 caps empagliflozin 10 mg tablet 10 mg PO DAILY 30 days #30 tabs 04/29/24 (Jardiance) insulin glargine 100 unit/mL (3 35 unit (0.35 mL) SQ HS 30 days #0 04/29/24 mL) subcutaneous pen (Lantus mL Solostar U-100 Insulin) sacubitril 24 mg-valsartan 26 mg 1 tab PO BID 30 days #60 tabs 04/29/24 tablet (Entresto) spironolactone 25 mg tablet 25 mg PO DAILY 30 days #30 tabs 04/29/24 ondansetron HCl 4 mg tablet 4 mg PO Q8H PRN nausea and 05/13/24 vomiting 4 days #12 tabs amiodarone 400 mg tablet See Rx Instructions .Route 06/14/24 .COMPLEX #180 tabs linezolid 600 mg tablet 600 mg PO BID 10 days #20 tabs 07/17/24 levofloxacin 750 mg tablet 750 mg PO DAILY 14 days #14 tabs 08/13/24 Allergies Allergy/AdvReac Type Severity Reaction Status Date / Time hydrocodone (From LORTAB) Allergy Unknown NA-NAUSEA/V Verified 06/18/25 11:29 OMITING codeine Allergy Verified 06/18/25 11:29 levetiracetam (From Keppra) Allergy Verified 06/18/25 11:29 tramadol AdvReac Unknown Verified 06/18/25 11:29 allergy reaction PFSH PFS Disclaimer: The information contained in this section may have been updated after the patient was seen, as this information can be updated by other users. Medical History Seizure CAD in [place] artery Acute febrile illness Atrial flutter Bilateral cellulitis of lower leg Cellulitis Diabetes mellitus Dystrophia unguium Fatigue Fever Infestation by fly larvae Lymphedema of both lower extremities Malaise Obesity with body mass index (BMI) of 30.0 to 39.9 Peripheral vascular disease Renal insufficiency Spinal stenosis of cervical region Spinal stenosis of lumbar region Systemic inflammatory response syndrome (SIRS) Ulcers of both lower extremities Uncontrolled diabetes mellitus History of left heart catheterization (LHC) Surgical History History of amputation H/O Spinal surgery Family History Mother Breast cancer Family history of myocardial infarction Social History Smoking Status: Unknown if ever smoked alcohol intake: never substance use type: marijuana current occupational status: retired and disabled Travel in the last 8 weeks?: None household members: family caffeine: No Have you lived/traveled outside US in past 30 days?: No Contact w/someone who lives/traveled outside US past 30 days?: No Exposure to someone with infectious disease in past 14 days?: No Do you have a fever (greater than 100.4 F or 38 C)?: No Have you tested positive for COVID-19?: No Exposed to someone with COVID-19 in past 14 days?: No Do you have a sore throat?: No Do you have a cough?: No Do you have any weakness?: No Do you have any diarrhea?: No Are you experiencing any unusual bleeding?: No Do you have any muscle aches/pain?: No Do you have any abdominal pain?: No Are you experiencing loss of taste or smell?: No Other Medical History Have you received the Flu Vaccine for this season: No Have you received the Pneumonia Vaccine: No ROS Obtained: Yes Systems reviewed as appropriate & no additional complaints except as documented Physical Exam General General appearance: alert and in no apparent distress Head Head exam: atraumatic Eye Eye exam: Present normal appearance ENT ENT exam: Present normal external ear exam Neck Neck exam: Present full ROM Chest Chest inspection: Present symmetric chest wall rise Respiratory Respiratory exam: Present normal lung sounds bilaterally; Absent respiratory distress, wheezes or stridor Cardiovascular Cardiovascular exam: Present regular rate and normal rhythm Abdominal Exam Abdominal exam: Present soft; Absent tenderness or guarding exam: Present other (No foreign body appreciated, no blood at the urethral meatus.) Extremities Exam Extremities exam: Present normal inspection and other (S/p right lower extremity BKA) Back Exam Back exam: Present normal inspection Neurological Exam Neurological exam: Present alert and oriented X3 Psychiatric Psychiatric exam: Present normal affect Skin Skin exam: Present warm and dry Medical Decision Making Medical Records Screening: Per USPSTF and CDC recommendations, given the prevalence of disease in our region, it is our hospital?s policy to screen for HIV and viral Hepatitis for all patients aged 18 and over and those with ongoing risk factors. Lex Inquiry Pt receiving controlled substance: No Vital Signs: 08/06/25 15:35 Temperature 97.9 F Temperature Source Oral Pulse Rate [Radial] 91 H Respiratory Rate 18 Blood Pressure [Right Arm] 160/87 H Blood Pressure Mean [Right Arm] 111 Blood Pressure Source [Right Arm] Automatic Cuff Blood Pressure Position [Right Arm] Sitting 02 Sat by Pulse Oximetry 99 Oxygen Delivery Method Room Air Lab Data Lab Results 08/06/25 17:25: Urine Color Yellow, Urine Appearance Clear, Urine pH 6.0, Ur Specific [place] 1.015, Urine Protein 1+ A, Urine Glucose (UA) Negative, Urine Ketones Negative, Urine Blood Trace-i, Urine Nitrate Negative, Urine Bilirubin Negative, Urine Urobilinogen 0.2, Ur Leukocyte Esterase Trace Orders (Tests/Meds): ORDERS Category Date Time Status CT abdomen pelvis wo con Stat Cat Scan 08/06/25 15:36 Completed UA [Urinalysis and Microscopic] Stat Lab 08/06/25 17:25 Results Medical Decision Narrative: Vitaly Pool is a 70-year-old male with a history of diabetes mellitus, coronary artery disease, atrial flutter, followed by [facility] who presents to the emergency department for complaints of a possible dislodged/Retained Ambrose catheter. Patient states that he was recently seen at [facility] and had a new Ambrose catheter placed . Patient states that he sat up in bed on Wednesday and noticed that his Ambrose catheter was lying in the floor. He states that his Amrbose broke off and they could not find the missing piece. It is unclear exactly what piece is missing. He denies any hematuria or pain in his genital area. On arrival, patient is hemodynamically stable, no acute distress, alert and answering questions appropriately. Physical exam, as stated above, revealed chronically ill-appearing male in no significant distress. Genitourinary exam with correctional agency director shows no blood at the urethral meatus. No foreign bodies are identified. No catheter is in place. No swelling of the penis. I have low concern for retained foreign body at this time, however we will obtain CT abdomen pelvis without contrast to evaluate for urethral or bladder retained Ambrose catheter. CT imaging was interpreted by me personally. No foreign bodies identified in the bladder or in the penis or penile urethra. There is bladder wall thickening and cystitis does not excluded. Given this, we will place Ambrose catheter and obtain urine sample. Urine dipstick with trace leukocyte esterase, nitrate negative, 1+ protein. Patient is eagerly wanting to get home. Urine microscopy pending. Patient is not having any symptomatology consistent with urinary tract infection but will follow-up urine micro and call in antibiotics if indicated. Patient has remained hemodynamically stable throughout his stay here in the emergency department and is appropriate for discharge at this time. Critical Care Critical Care Time Critical Care Time: No
--- OUTSIDE RECORDS SUMMARY | 2025-08-06 15:42 | XMS_ITS | Clinical Summary ---
Author Organization [facility] Address [address] [place] [address] Phone Care Team Providers Care Media Production Operator Name Role Phone Mckenna MURILLO, Britton Clifford [ ] Conditions or Problems Problem Name Problem Code Onset Date Status Entry Date Provider Comment Standard Description Annotate DM Non-pressure chronic ulcer of left heel, black/dry (document depth) 606980698 (SNOMED CT) 09/19 Active 09/19 Crys Alfredo Chronic ulcer of foot Infection, local skin/subcuta neous tissue 247641625 (SNOMED CT) 09/19 Active 09/19 Crys Alfredo Localized infection of skin AND/OR subcutaneous tissue Gangrene with DM II PVD 70828025 (SNOMED CT) 09/19 Active 09/19 Crys Alfredo Type 2 diabetes mellitus DM II with diabetic PVD 092651563 (SNOMED CT) Active Crys Alfredo Peripheral vascular disease Diabetes mellitus, type II with peripheral vascular disorder, with gangrene 887808576 (SNOMED CT) Resolved Crys Alfredo Peripheral circulatory disorder due to type 2 diabetes mellitus Presence of ambrose catheter 832677685 (SNOMED CT) Resolved Crys Alfredo Urinary catheter in situ Benign Essential Hypertension 92058954 (SNOMED CT) Active Crys Alfredo Benign hypertension DM II with diabetic polyneuropat hy E11.42 (ICD-10-CM) Active Crys Alfredo Type 2 diabetes mellitus with diabetic polyneuropathy Other obesity due to excess calories 841368466 (SNOMED CT) Active Myranda Zelaya Simple obesity Presence of ambrose catheter 474487516 (SNOMED CT) Removed Bibi Edelen Urinary catheter in situ Pressure ulcer of left buttock, stage 1 03176160843 018662 (SNOMED CT) Active Bibi Edelen Pressure injury of buttock stage I Pressure ulcer of right buttock, stage 1 96710218035 107 (SNOMED CT) Active Bibi Edelen Pressure injury of right buttock stage I Cellulitis of left lower limb 869480999 (SNOMED CT) Active Bibi Edelen Cellulitis of leg, excluding foot Diabetes mellitus, type II with peripheral vascular disorder, with gangrene 876912508 (SNOMED CT) Removed Bibi Edelen Peripheral circulatory disorder due to type 2 diabetes mellitus Hx of DVT 044819339 (SNOMED CT) Active Bibi Edelen History of deep vein thrombosis Amputation of right leg above knee 372887410 (SNOMED CT) Active Bibi Edelen Amputated above knee Diabetes mellitus, type II with peripheral vascular disorder, without gangrene 104972107 (SNOMED CT) Inactive Bibi Edelen Peripheral circulatory disorder due to type 2 diabetes mellitus Diabetes mellitus, type II with peripheral neuropathy 97593476532 07 (SNOMED CT) Inactive Bibi Edelen Peripheral neuropathy due to type 2 diabetes mellitus Hypertension 53768468 (SNOMED CT) Inactive Bibi Edelen Hypertensive disorder Medications Medication Instructions Start Date Stop Date Generic Name NDC Provider DOXYCYCLINE HYCLATE 100 MG CAPS Take 1 capsule by mouth 2 (Two) Times a Day for 10 days. doxycycline hyclate 97633887986 QIE qieuser AMOXICILLIN-POT CLAVULANATE 875-125 MG TABS 1 {tbl} Oral amoxicillin-pot clavulanate 13702126385 QIE qieuser ATORVASTATIN CALCIUM 40 MG TABS Take 2 tablet by mouth every night atorvastatin 80469648145 Daria Minor METFORMIN HCL 500 MG TABS Take 2 tablet by mouth twice a day metformin 79513384632 Daria Minor CLOPIDOGREL BISULFATE 75 MG TABS Take 1 tablet by mouth once a day clopidogrel 24294013605 Daria Minor PEG 3350 17 GM PACK Take 17 gram by mouth once a day as needed polyethylene glycol 3350 03230926195 Daria Minor LAMOTRIGINE 100 MG TABS Take 1 tablet by mouth every morning lamotrigine 42719965023 Daria Minor FINASTERIDE 5 MG TABS Take 1 tablet by mouth once a day finasteride 62369708154 Daria Minor DOCUSATE SODIUM 250 MG CAPS Take 1 capsule by mouth twice a day docusate sodium 69847655850 Daria Minor ASPIRIN 81 MG TBEC Take 1 tablet by mouth once a day aspirin 59224136780 Daria Minor FUROSEMIDE 40 MG TABS Take 1 tablet by mouth once a day furosemide 72371285525 Daria Minor Thera M Plus (ferrous fumarat) 9 mg iron-400 mcg tablet Take 1 tablet by mouth once a day eyesubyn-zjsq-i d-inrigdv-gfnh 04224509627 Daria Minor FERROUS SULFATE 325 (65 Fe) MG TABS Take 1 tablet by mouth every morning ferrous sulfate 87880862294 Daria Minor LAMOTRIGINE 25 MG TABS Take 10 tablet by mouth every night lamotrigine 33484431210 Daria Minor BACLOFEN 20 MG TABS Take 1 tablet by mouth as needed baclofen 07952686979 Daria Minor TAMSULOSIN HCL 0.4 MG CAPS Take 2 capsule by mouth once a day tamsulosin 06450722294 Daria Minor DIAZEPAM 2 MG TABS Take 1 tablet by mouth twice a day as needed diazepam 05669210518 Daria Minor LOSARTAN POTASSIUM 50 MG TABS Take 1 tablet by mouth once a day losartan 41401283171 Daria Minor BUSPIRONE HCL 5 MG TABS Take 1 tablet by mouth three times a day buspirone 06578905350 Daria Minor METOPROLOL SUCCINATE ER 25 MG [id number] Take 1 tablet by mouth once a day metoprolol succinate 25760906109 Daria Minor ubrogepant Take 1 tablet by mouth once a day as needed UBRELVY Daria Minor GLIPIZIDE 5 MG TABS Take 1 tablet by mouth twice a day glipizide 09143050232 Daria Minor ubrogepant Take 1 tablet by mouth Daily As Needed. UBRELVY QIE qieuser TAMSULOSIN HCL 0.4 MG CAPS Take 2 capsules by mouth Daily. tamsulosin 76008096246 QIE qieuser PEG 3350 17 GM PACK Take 17 g by mouth Daily As Needed. polyethylene glycol 3350 84477450932 QIE qieuser Thera M Plus (ferrous fumarat) 9 mg iron-400 mcg tablet Take 1 tablet by mouth Daily. emueadbf-vrhw-t s-iajoqyz-mcut 13954466663 QIE qieuser METOPROLOL SUCCINATE ER 25 MG [id number] Take 1 tablet by mouth Daily. metoprolol succinate 54673986324 QIE qieuser METFORMIN HCL 500 MG TABS Take 2 tablets by mouth 2 (Two) Times a Day With Meals. metformin 08422271390 QIE qieuser LOSARTAN POTASSIUM 50 MG TABS Take 1 tablet by mouth Daily. losartan 87969394946 QIE qieuser LAMOTRIGINE 25 MG TABS Take 10 tablets by mouth Every Night. lamotrigine 77728010681 QIE qieuser LAMOTRIGINE 100 MG TABS Take 1 tablet by mouth Every Morning. lamotrigine 49308475670 QIE qieuser GLIPIZIDE 5 MG TABS Take 1 tablet by mouth 2 (Two) Times a Day Before Meals. glipizide 33983849421 QIE qieuser FUROSEMIDE 40 MG TABS Take 1 tablet by mouth Daily. furosemide 22959706614 QIE qieuser FINASTERIDE 5 MG TABS Take 1 tablet by mouth Daily. finasteride 48318028476 QIE qieuser FERROUS SULFATE 325 (65 Fe) MG TABS Take 1 tablet by mouth Daily With Breakfast. ferrous sulfate 64796255617 QIE qieuser DOXYCYCLINE HYCLATE 100 MG CAPS Take 1 capsule by mouth 2 (Two) Times a Day for 7 days. doxycycline hyclate 72017763929 QIE qieuser DOCUSATE SODIUM 250 MG CAPS Take 1 capsule by mouth 2 (Two) Times a Day. docusate sodium 90608350710 QIE qieuser DIAZEPAM 2 MG TABS Take 1 tablet by mouth 2 (Two) Times a Day As Needed for Anxiety. diazepam 84685721853 QIE qieuser CLOPIDOGREL BISULFATE 75 MG TABS Take 1 tablet by mouth Daily. clopidogrel 75586662465 QIE qieuser BUSPIRONE HCL 5 MG TABS Take 1 tablet by mouth 3 (Three) Times a Day. buspirone 45531842372 QIE qieuser BACLOFEN 20 MG TABS Take 1 tablet by mouth As Needed for Muscle Spasms. baclofen 79348163622 QIE qieuser ATORVASTATIN CALCIUM 40 MG TABS Take 2 tablets by mouth Every Night. atorvastatin 69723481678 QIE qieuser ASPIRIN 81 MG TBEC Take 1 tablet by mouth Daily. OTC aspirin 57002290460 QIE qieuser AMOXICILLIN-POT CLAVULANATE 875-125 MG TABS Take 1 tablet by mouth 2 (Two) Times a Day for 7 days. amoxicillin-pot clavulanate 02968136861 QIE qieuser Medications Administered No information available. [...]
--- OUTSIDE RECORDS SUMMARY | 2025-08-06 15:43 | XMS_ITS | Encounter Summary ---
Author Organization Healthcare Address [address] [place] [address] Care Team Providers Care Process Coordinator Name Role Phone John Paul Orellana MD Primary Care Provider [phone] Encounter Details Date Type Department Care Team (Late st Contact Info) Description 04/21/2022 Lab Requisition [facility] [address] [place] [address] Delvis Dominguez MD [address] [facility] [address] [facility] [address] [place] [address] Encounter for general adult medical [...] drink first t clarita in the morning (EYE-CARE TECH) to steady your nerves or to get [...] GENERAL ORDERABLES Final Result [facility] [address] [place] [address] documented in this encounter Visit Diagnoses Diagnosis Encounter for general adult medical examination without abnormal findings documented in this encounter Additional Health Concerns Infection Onset Date Last Indicated Resolved Time MRSA 04/20/2022 05/28/2022 documented as of this encounter Care Teams Process Coordinator Relationship Specialty Start Date End Date John Paul Orellana MD [address] [place] [address] PCP - General 01/24/21 documented as of this encounter
--- OUTSIDE RECORDS SUMMARY | 2025-08-06 15:43 | XMS_ITS | Encounter Summary ---
Author Organization [facility] Address [address] [place] [address] Care Team Providers Care Historical Records Administrator Name Role Phone Gustavo Leggett MD Primary Care Provider [phone] Encounter Details Date Type Department Care Team (Late st Contact Info) Description 06/11/2025 Readmission Management [facility] [address] [place] [address] Marlyn Santoro, RN Social History Tobacco Use Types Packs/Day Years Used Date Smoking Tobacco: Never Passive Smoke Exposure: Never Smokeless Tobacco: Never Alcohol Use Standard Drinks/Week Comments No 0 (1 standard drink = 0.6 oz pur e alcohol) [facility] Utilities Answer Date Recorded In the [...] Brief Depression Severity Measure Score 2 08/09/2023 [facility] of Occupat ional Health - Occupational Stress [...] GED or equivalent No 09/01/2024 Preferred Language Tamazight 09/01/2024 PHQ-2 Answer Date Recorded Patient Health [...] PM EDT Prep Survey Flowsheet Row Responses [facility] patient discharged from? [place] Is LACE score less than 10 ? No Eligibility Readm Mgmt Discharge diagnosis Cellulitis Does the patient have one of the following disease processes/diagnoses(primary or secondary)? Other Does the patient have Home health ordered? Yes What is the Home health agency? [facility] Prep survey completed? 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
--- OUTSIDE RECORDS SUMMARY | 2025-08-06 15:43 | XMS_ITS | Encounter Summary ---
[facility] Organization [facility] Address [address] [place] [address] Care Team Providers Care Editorial Intern Name Role Phone Gustavo Leggett MD Primary Care Provider + [phone] Encounter Details Date Type Department Care Team (Late st Contact Info) Description 06/13/2025 Readmission Management [facility] [address] [place] [address] Jacob Loza RN Social History Tobacco Use Types Packs/Day Years Used Date Smoking Tobacco: Never Passive Smoke Exposure: Never Smokeless Tobacco: Never Alcohol Use Standard Drinks/Week Comments No 0 (1 standard drink = 0.6 oz pur e alcohol) [facility] Utilities Answer Date Recorded In the [...] Brief Depression Severity Measure Score 2 08/09/2023 [facility] [place] [facility] Occupat ional Health - Occupational Stress [...] GED or equivalent No 09/01/2024 Preferred Language Kiswahili 09/01/2024 PHQ-2 Answer Date Recorded Patient Health [...] Week 1 Survey Flowsheet Row [facility] the [facility] have one of the [...] N/A What is the Home health agency? [facility] Has home health visited the patient [...] this patient benefit from a Referral to [facility] Social Work? No Is the patient interested in additional calls from an ambulatory rn case mgr? No Call end time 1620 JACOB Mei [...] documented as of this encounter Care Teams Editorial Intern Relationship Specialty Start Date End Date Gustavo Leggett MD [facility] [address] [place] [address] PCP - General Adolescent Medicine 07/14/23 documented as of this encounter
--- OUTSIDE RECORDS SUMMARY | 2025-08-06 15:43 | XMS_ITS | Referral Summary ---
Author Organization [employer] ([place], [place], [place], [place], [place]) Address [address] [place] [address] Care Team Providers Care Money Market Clerk Name Role Phone Unavailable Primary Care [...]
--- OUTSIDE RECORDS SUMMARY | 2025-08-06 15:43 | XMS_ITS | Encounter Summary ---
Author Organization Healthcare Address [address] [place] [address] Care Team Providers Care [facility] Pricing Consultant Name Role Phone John Paul Orellana MD Primary Care Provider [phone] Encounter Details Date Type Department Care Team (Late st Contact Info) Description 08/04/2023 Community Orders Community Practice [address] [place] [address] Shree Anand MD [address] [facility] [address] [place] [address] Parkinsonian features (Primary Dx) Social [...] drink first t clarita in the morning (EYE-HOME ENERGY CONSULTANT SUPERVISOR) to steady your nerves or to get [...] documented as of this encounter Care Teams [facility] Network Pricing Consultant Relationship Specialty Start Date End Date John Paul Orellana MD [address] [place] [address] PCP - General 01/24/21 documented as of this encounter
--- OUTSIDE RECORDS SUMMARY | 2025-08-06 15:44 | XMS_ITS | Encounter Summary ---
Author Organization [facility] Address [address] [place] [address] Care Team Providers Care First Press Operator Name Role Phone Gustavo Leggett MD Primary Care Provider + [phone] Reason for Visit * Reason Onset Date Comments [facility] 08/12/2020 Encounter Details Date Type Department Care Team (Late st Contact Info) Description 08/12/2020 Telephone [facility] [address] [facility] [address] [place] [address] Tra Gregg PA-C [address] [facility] [address] [place] [address] [facility] AND [...] 9:05 AM EST Office note faxed to [employer] ([phone]). * Telephone Encounter - Betty Ramires MA - 08/12/2020 1:14 PM EST [facility] 02/15/2020 Diazepam 5MG 1954 60 30 [facility] 2 03/09/2020 Diazepam 5MG 1954 60 30 [facility] 2 04/12/2020 Diazepam 5MG 1954 60 30 [facility] 2 05/09/2020 Diazepam 5MG 1954 90 30 [facility] 2 06/10/2020 Diazepam 5MG 1954 60 20 [facility] 2 07/18/2020 Diazepam 5MG 1954 30 15 [facility] 1 * Telephone Encounter - Francisca Jensen [...] HE HAS FOUR LEFT. HIS PHARMACY IS [facility] IN [place], [place]. PLEASE ADVISE. SINA CAN BE REACHED AT [phone], ASK FOR BRANDEE OR ABEBE. THE PATIENT CAN BE REACHED AT [phone] THANK YOU! 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 COVID Screen (preop/placement) 11/30/2021 11/30/2021 11/30/2021 3:20 [...] 06/02/2025 12:39 PM EDT ESBL 06/02/2025 06/25/2025 C.difficile (rule out) 06/25/2025 06/25/202506/26 8:48 AM EDT C.difficile 06/26/2025 06/26/2025 Norovirus 06/26/2025 06/26/2025 07/11/2025 7:40 AM EDT documented as of this encounter Care Teams First Press Operator Relationship Specialty Start Date End Date Gustavo Leggett MD [address] [place] [address] [address] [facility] [address] PCP - General Adolescent Medicine 07/14/23 documented as of this encounter
--- OUTSIDE RECORDS SUMMARY | 2025-08-06 15:44 | XMS_ITS | Clinical Summary ---
Author Organization [facility] Address [address] [place] [address] Care Team Providers Care Bolt Maker Name Role Phone John Paul Orellana MD Primary Care Provider Allergies Active Allergy Reactions Criticality Noted Date [...] (04/20/2022): Added automatically from request for surgery [id number] Resolved Problems Problem Noted Date Diagnosed Date [...] drink first t clarita in the morning (EYE-LEAF SIZE PICKER) to steady your nerves or to get [...] Date Last Done Comments [facility]-Depression Screening 1955 [facility]-/Child/Adol SDOH Screenings 1955 [facility]- SDOH Screenings 01/19/1972 [facility]-Adult SDOH Screenings 01/19/1972 CT Colonography 1999 Colonoscopy 1999 FIT-DNA 1999 FIT 1999 FOBT 1999 Sigmoidoscopy 1999 [facility]-Colorectal Cancer Screening 1999 [facility]-Zoster Vaccines (2 of 3) 01/06/2017 11/11/2016 [facility]-Pneumococcal Vaccine: 50+ Years (2 of 2 - PCV20 or PCV21) 11/11/2017 11/11/2016 [id number] Vaccine (3 - season) 2025 12/17/2020, 11/20/2020 [...] Adults <6.0% Children and Adolescents <7.5% Source: [place] [employer]. Standards of medical care in diabetes,2017. Diabetes Care.2017:40 (suppl 1):S1-S135. HbA1c assay performed by an ion-exchange chromatography method that is certified traceable to the DCCT. 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
--- OUTSIDE RECORDS SUMMARY | 2025-08-06 15:44 | XMS_ITS | Continuity of Care Document ---
Author Organization [facility] Address [address] [place] [address] Care Team Providers Care Master Scheduler Name Role Phone John Paul Orellana MD Primary Care Provider Encounters Date Type Department Care Team Description 05/23/2022 12:45 PM EDT - 05/23/2022 11:59 PM EDT Hospital Encounter OR Ambulance Billing [address] [place] [address] System, Provider Not In Discharge Disposition: Home or Self Care 05/20/2022 3:19 AM EDT - 05/23/2022 2:00 PM EDT Hospital Encounter [facility] 3 Central Intensive Care Unit [address] [place] [address] Luz Kumari MD Knighton, Martha A, MD Acute encephalopathy (Primary Dx); Acute respiratory failure with hypoxia Discharge Disposition: [facility] Facility 04/13/2022 9:45 AM EDT Office Visit [place] [address] [place] [address] Cecil Carrillo MD Meningioma (Primary Dx) 04/01/2022 1:12 PM EDT - 04/05/2022 5:41 PM EDT Hospital Encounter [facility] [address] [place] [address] Carter Barajas DO Status epilepticus (Primary Dx) Discharge Disposition: [facility] Facility Allergies Active Allergy Reactions Criticality Noted [...] Father Social History Smoking Status as of 08/06/2025 Tobacco Use Types Packs/Day Years Used Date [...] AM EDT HB PTT ACTIVATED Routine 05/20/2022 3:4 7 AM EDT HB PROTHROMBIN TIME STAT 05/20/2022 [...] of28 resultswithin the time period is included. [facility] Glucose Glucometer 139 71 - 139 mg/dL 05/23/2022 11:59 AM EDT [facility] Serum 05/23/2022 11:5 5 AM EDT 05/23/2022 11:59 AM EDT us Enedina Chavis MD LAB BLOOD ORDERABLES Final Result [facility] ([id number]) [address] [place] [address] [facility] [address] [place] [address] * COVID FLU RSV PCR Panel: Reason for Testing: Asymptomatic Transfer to Another Facility for Patient Placement (05/22/2022 3:23 PM EDT) Only the most recent of2 resultswithin the time period is included. [facility] COVID, FLU, RSV Source Nasopharyngeal 05/22/2022 2:27 PM EDT [facility] FLU A Result Not Detected Not Detected 05/22/2022 4:13 PM EDT [facility] FLU B Result Not Detected Not Detected 05/22/2022 4:13 PM EDT [facility] RSV Result Not Detected Not Detected 05/22/2022 4:13 PM EDT [facility] COVID-19 Result Not Detected Not Detected 05/22/2022 4:13 PM EDT [facility] COVID Result Comment (note) This test utilizes [...] and Drug Administration. 05/22/2022 4:13 PM EDT [facility] Reason for Testing ASYMPTOMATIC TRANSFER TO ANOTHER FACILITY FOR PATIENT PLACEMENT 05/22/2022 2:27 PM EDT [facility] Nasopharyngeal 05/22/2022 3: 23 PM EDT 05/22/2022 3:33 PM EDT Enedina Chavis MD MICROBIOLOGY [facility] Final Result [facility] ([id number]) [address] [place] [address] [facility] [address] [place] [address] [facility] * [place] Modified Barium Swallow (05/22/2022 10:53 [...] 4.5 - 11.0 10*3/uL 05/22/2022 5:03 AM [facility] Red Blood Count 3.24(L) 4.5 - 5.9 10*6/uL 05/22/2022 5:03 AM [facility] Hemoglobin 9.0(L) 13.5 - 17.5 g/dL 05/22/2022 5:03 AM [facility] Hematocrit 28.6(L) 41.0 - 53.0 % 05/22/2022 5:03 AM [facility] Mean Corpuscular Volume 88.3 80.0 - 100.0 fL 05/22/2022 5:03 AM [facility] Mean Corpuscular Hemoglobin 27.8 26.0 - 34.0 pg 05/22/2022 5:03 AM [facility] Mean Corpuscular HGB Conc 31.5 31.0 - 37.0 g/dL 05/22/2022 5:03 AM [facility] Red Cell Distribution Width-CV 13.9 12.0 - 16.8 % 05/22/2022 5:03 AM [facility] Platelet Count 244 140 - 440 10*3/uL 05/22/2022 5:03 AM [facility] Mean Platelet Volume 10.0 8.4 - 12.4 fL 05/22/2022 5:03 AM [facility] Diff Type Hospital CBC w/AutoDiff (arb'U) 05/22/2022 5:03 AM [facility] Neutrophils % 75.4 45 - 80 % 05/22/2022 5:03 AM [facility] Lymphocyte % 14.7(L) 15 - 50 % 05/22/2022 5:03 AM [facility] Monocyte % 6.7 0 - 15 % 05/22/2022 5:03 AM [facility] Eosinophil% 1.5 0 - 7 % 05/22/2022 5:03 AM [facility] BASO% 0.4 0 - 2 % 05/22/2022 5:03 AM [facility] Immature Granulocyte% 1.3(H) 0.0 - 1.0 % 05/22/2022 5:03 AM EDT [facility] Nucleated RBC % 0 0 /100(WBC) 05/22/2022 5:03 AM EDT [facility] Neutrophil Abs 7.09 2.0 - 8.8 10*3/uL 05/22/2022 5:03 AM EDT [facility] Lymphocyte-Absol loreto 1.38 0.7 - 5.5 10*3/uL 05/22/2022 5:03 AM EDT [facility] Monocyte Absolute 0.63 0.0 - 1.7 10*3/uL 05/22/2022 5:03 AM EDT [facility] EOS-Absolute 0.14 0.0 - 0.8 10*3/uL 05/22/2022 5:03 AM EDT [facility] Basophil Abs 0.04 0.0 - 0.2 10*3/uL 05/22/2022 5:03 AM EDT [facility] Immature Granulocyte Abs 0.12(H) 0.00 - 0.10 10*3/uL 05/22/2022 5:03 AM EDT [facility] Whole Blood BLOOD SPECIMEN FROM PATIENT / Unknown 05/22/2022 4:44 AM EDT 05/22/2022 4:52 AM EDT us Enedina Chavis MD LAB BLOOD ORDERABLES Final Result [facility] ([id number]) [address] [place] [address] [facility] [address] [place] [address] * (ABNORMAL) Magnesium (05/22/2022 4:44 AM EDT) Only the most recent of5 resultswithin the time period is included. Magnesium 1.5(L) 1.6 - 2.6 mg/dL 05/22/2022 5:09 AM EDT [facility] Plasma BLOOD SPECIMEN FROM PATIENT / Unknown 05/22/2022 4:44 AM EDT 05/22/2022 4:52 AM EDT us Luz Kumari MD LAB BLOOD ORDERABLES Final Result [facility] ([id number]) [address] [place] [address] [facility] [address] [place] [address] * (ABNORMAL) Basic Metabolic Panel (BMP) (05/22/2022 4:44 AM EDT) Only the most recent of5 resultswithin the time period is included. Sodium 137 136 - 145 mmol/L 05/22/2022 5:10 AM [facility] Comment: (note) Excess protein and/or lipids can falsely decrease sodium levels (pseudo hyponatremia). Potassium 3.9 3.5 - 5.1 mmol/L 05/22/2022 5:10 AM [facility] Chloride 107 98 - 107 mmol/L 05/22/2022 5:10 AM [facility] Comment: (note) Falsely elevated chloride levels can be seen in patients taking medications which contain bromide. Carbon Dioxide 23 22 - 29 mmol/L 05/22/2022 5:10 AM [facility] Anion Gap 7 5 - 13 (arb'U) 05/22/2022 5:10 AM [facility] Comment: (note) Calculation- Na - (Cl + CO2) Glucose 155(H) 71 - 139 mg/dL 05/22/2022 5:10 AM [facility] Comment: (note) Reference range based on inpatient hypo/hyperglycemic treatment levels. A random glucose =/>200 is concerning for poor control. Blood Urea Nitrogen (BUN) 17 8 - 26 mg/dL 05/22/2022 5:10 AM [facility] Creatinine-Bloo d 0.48(L) 0.73 - 1.18 mg/dL 05/22/2022 5:10 AM [facility] BUN/Creatinine Ratio 35.4 RATIO 05/22/2022 5:10 AM [facility] Estimated GFR >60 >60 /1.73 m2 05/22/2022 5:10 AM EDT [facility] Comment: (note) Results do not take into account body mass. Valid for patients 18 to 70 years of age. Estimated GFR if -Lissy n >60 >60 /1.73 m2 05/22/2022 5:10 AM EDT [facility] Comment: (note) Results do not take into account body mass. Valid for patients 18 to 70 years of age. Calcium 7.9(L) 8.4 - 10.2 mg/dL 05/22/2022 5:10 AM EDT [facility] Plasma BLOOD SPECIMEN FROM PATIENT / Unknown 05/22/2022 4:44 AM EDT 05/22/2022 4:52 AM EDT us Enedina Chavis MD LAB BLOOD ORDERABLES Final Result [facility] ([id number]) [address] [place] [id number] [facility] [address] [place] [address] * Echo Doppler 2D Mmode Color Complete (05/21/2022 3:26 PM EDT) 05/21/2022 2:54 PM EDT Narrative [facility] - 05/21/2022 6:45 PM EDT REVIEWING YOUR TEST RESULTS IN [facility] IS NOT A SUBSTITUTE FOR DISCUSSING THOSE RESULTS WITH YOUR HEALTH CARE PROVIDER. PLEASE CONTACT YOUR PROVIDER VIA [facility] TO DISCUSS ANY QUESTIONS OR CONCERNS YOU MAY HAVE REGARDING THESE TEST RESULTS. CARDIOLOGY REPORT FACILITY: [facility] PATIENT NAME/: VITALY CASILLAS 1955 UNIT/AGE/GENDER: AGE: 67 YR GENDER: M UNIT NUMBER: [id number] ACCESSION NUMBER: [id number] DATE OF EXAM: 05/21/2022 14:54 EXAMINATION(S): ECHO DOPPLER 2D MMODE SPECT COLOR COMPLETE FINAL REPORT Procedure Information Procedure type: Echo Proc. sub type: TTE procedure: ECHO DOPPLER 2D MMODE SPECT COLOR COMPLETE. Start date time: 05/21/2022 Blood pressure: 118 / 60 mmHg Contrast medium: Lumason Accession no: [id number] Procedure Staff Referring Physician: Enedina Chaves Ecommerce Marketing Specialist: Kiki Harper Interpreting Physician: *[place] Pattern Designer Bennie Montano Clinical Indications Syncope. Physician Conclusions [...] - 05/21/2022 REVIEWING YOUR TEST RESULTS IN [facility] IS NOT A SUBSTITUTE FORDISCUSSING THOSE RESULTS WITH YOUR HEALTH CARE PROVIDER. PLEASE CONTACT YOUR PROVIDER [facility]IA [facility] TO DISCUSS ANY QUESTIONS ORCONCERNS YOU MAY HAVE REGARDING THESE TEST RESULTS. CARDIOLOGY REPORT FACILITY: [facility] PATIENT NAME/: VITALY CASILLAS 1955 UNIT/AGE/GENDER: AGE: 67 YR GENDER: M UNIT NUMBER: [id number] ACCESSION NUMBER: [id number] DATE OF EXAM: 05/21/2022 14:54 EXAMINATION(S): ECHO DOPPLER 2D MMODE SPECT COLOR COMPLETE FINAL REPORT ProcedureInformation Procedure type: Echo Proc. sub type: TTE procedure: ECHO DOPPLER 2D MMODE SPECT COLORCOMPLETE. Start date time: 05/21/2022 Bloodpressure: 118 / 60 mmHg Contrast medium: Lumason Accession no: [id number] Procedure Staff Referring Physician: Enedina Chaves Ecommerce Marketing Specialist: Kiki Harper Interpreting Physician: *[place] Pattern Designer Bennie Montano Clinical Indications Syncope. Physician Conclusions [...] 8.63 MVE/E' lateral: 7.28 Electronically signed by Bnenie Vázquez (Interpreting Physician) on05/21/2022 at 6:44 PM [...] CARE PROVIDER. PLEASE CONTACT YOUR PROVIDER [facility] TO DISCUSS ANY QUESTIONS OR CONCERNS YOU MAY HAVE REGARDING THESE TEST RESULTS. RADIOLOGY REPORT FACILITY: [facility] UNIT/AGE/GENDER: J.ICU IN AGE:67 Y SEX:M PATIENT NAME/: VITLAY CASILLAS LAYNE 1955 UNIT NUMBER: [id number] ACCESSION NUMBER: [id number] CTA Head CTA Neck Examination Date: 05/21/2022 [...] and Basilar Arteries: Codominant. No significant stenosis. rn examiner: Unremarkable. Superior Cerebellar and PICAs: Patent proximally. [...] signed by: Car Lynn M.D.> 05/21/2022 0840 [id number] Procedure Note Car Lynn MD - 05/21/2022 REVIEWING YOUR TEST RESULTS IN [facility] NOT [facility] FORDISCUSSING THOSE RESULTS WITH YOUR HEALTH CARE PROVIDER. PLEASE CONTACT YOUR PROVIDER VIA [facility] TO DISCUSS ANY QUESTIONS ORCONCERNS YOU MAY HAVE REGARDING THESE TEST RESULTS. RADIOLOGY REPORT FACILITY: [facility] UNIT/AGE/GENDER: J.ICU IN AGE:67 Y SEX:M PATIENT NAME/: VITALY CASILLAS LAYNE 1955 UNIT NUMBER: [id number] ACCESSION NUMBER: [id number] CTA Head CTA Neck Examination Date: 05/21/2022 [...] and Basilar Arteries: Codominant. No significant stenosis. rn examiner: Unremarkable. Superior Cerebellar and PICAs: Patent proximally. [...] M.D.> 05/21/202240 [id number] us Cinthia Snell SYBASE DEVELOPER IMG CT ORDERABLES Final Re sult * CT Angiogram Head (05/21/2022 6:21 AM EDT) Anatomical Region Laterality Modality Head Computed Tomogra phy 05/21/2022 8:35 AM EDT Narrative 05/21/2022 8:41 AM EDT REVIEWING YOUR TEST RESULTS IN [facility] IS NOT A SUBSTITUTE FOR DISCUSSING THOSE RESULTS WITH YOUR HEALTH CARE PROVIDER. PLEASE CONTACT YOUR PROVIDER [facility] TO DISCUSS ANY QUESTIONS OR CONCERNS YOU MAY HAVE REGARDING THESE TEST RESULTS. RADIOLOGY REPORT FACILITY: [facility] UNIT/AGE/GENDER: J.ICU IN AGE:67 Y SEX:M PATIENT NAME/: VITALY CASILLAS LAYNE 1955 UNIT NUMBER: [id number] ACCESSION NUMBER: [id number] CTA Head CTA Neck Examination Date: 05/21/2022 [...] and Basilar Arteries: Codominant. No significant stenosis. rn examiner: Unremarkable. Superior Cerebellar and PICAs: Patent proximally. [...] - 05/21/2022 REVIEWING YOUR TEST RESULTS IN [facility] FORDISCUSSING THOSE RESULTS WITH YOUR HEALTH CARE PROVIDER. PLEASE CONTACT YOUR PROVIDER [facility]IA [facility] TO DISCUSS ANY QUESTIONS ORCONCERNS YOU MAY HAVE REGARDING THESE TEST RESULTS. RADIOLOGY REPORT FACILITY: [facility] UNIT/AGE/GENDER: J.ICU IN AGE:67 Y SEX:M PATIENT NAME/: VITALY CASILLAS LAYNE 1955 UNIT NUMBER: [id number] ACCESSION NUMBER: [id number] CTA Head CTA Neck Examination Date: 05/21/2022 [...] and Basilar Arteries: Codominant. No significant stenosis. rn examiner: Unremarkable. Superior Cerebellar and PICAs: Patent proximally. [...] by: Car Lynn M.D.> 05/21/2022 [id number] [id number] us Cinthia Snell APRN IMG CT ORDERABLES Final Re sult * Phosphorus (05/21/2022 4:32 AM EDT) Only the most recent of2 resultswithin the time period is included. Phosphorus 3.8 2.3 - 4.7 mg/dL 05/21/2022 5:21 AM EDT [facility] Plasma BLOOD SPECIMEN FROM PATIENT / Unknown 05/21/2022 4:32 AM EDT 05/21/2022 4:56 AM EDT us Enedina Chavis MD LAB BLOOD ORDERABLES Final Result [facility] ([id number]) [address] [place] [address] [facility] [address] [place] [address] * Holter Monitor Placement (05/20/2022 5:53 PM EDT) 05/20/2022 5:12 PM EDT [facility] 05/22/[facility] 10:39 PM EDT REVIEWING YOUR TEST RESULTS IN [facility] IS NOT A SUBSTITUTE FOR DISCUSSING THOSE RESULTS WITH YOUR HEALTH CARE PROVIDER. PLEASE CONTACT YOUR PROVIDER VIA [facility] TO DISCUSS ANY QUESTIONS OR CONCERNS YOU MAY HAVE REGARDING THESE TEST RESULTS. CARDIOLOGY REPORT FACILITY: [facility] PATIENT NAME/: VITALY CASILLAS 1955 UNIT/AGE/GENDER: AGE: 67 YR GENDER: M UNIT NUMBER: [id number] ACCESSION NUMBER: [id number] DATE OF EXAM: 05/20/2022 17:12 EXAMINATION(S): HOLTER [...] - 05/22/2022 REVIEWING YOUR TEST RESULTS IN [facility] FORDISCUSSING THOSE RESULTS WITH YOUR HEALTH CARE PROVIDER. PLEASE CONTACT YOUR PROVIDER VIA [facility] TO DISCUSS ANY QUESTIONS ORCONCERNS YOU MAY HAVE REGARDING THESE TEST RESULTS. CARDIOLOGY REPORT FACILITY: [facility] PATIENT NAME/: VITALY CASILLAS 1955 UNIT/AGE/GENDER: AGE: 67 YR GENDER: M UNIT NUMBER: [id number] ACCESSION NUMBER: [id number] DATE OF EXAM: 05/20/2022 17:12 EXAMINATION(S): HOLTER [...] SVT. No atrial fibrillation was noted. Vlad oTny MD Electronically signed by Tyree Tony M.D. 05/22/2022 22:39 Lissette Perry Susiehodaryl DO CV CARDIAC SERVICES LEVI COHEN Final Result [facility] * EKG 12 lead (05/20/2022 5:02 PM EDT) 05/20/2022 5:02 PM EDT Narrative [facility] - 05/21/2022 8:39 AM EDT CARDIOLOGY REPORT FACILITY: [facility] PATIENT NAME/: VITALY CASILLAS 1955 UNIT/AGE/GENDER: AGE: 67 YR GENDER: M UNIT NUMBER: [id number] ACCESSION NUMBER: [id number] DATE OF EXAM: 05/20/2022 17:02 EXAMINATION(S): ECG 12-LEAD FINAL REPORT Procedure: ELECTROCARDIOGRAM RESULT Heart Rate 56 P-R Interval 140 ms QRS Interval 110 ms QT Interval 468 ms QTC Interval 452 ms P Oran 22 deg QRS Oran 21 deg T Wave Oran 7 deg DATE: 05/20/2022 17:02 SINUS BRADYCARDIA NONSPECIFIC INTRAVENTRICULAR CONDUCTION DELAY Summary: Abnormal ECG Electronically signed by Dominick Murphy 05/21/2022 08:39 Procedure Note Jeffrey Tan MD - 05/21/2022 CARDIOLOGY REPORT FACILITY: [facility] PATIENT NAME/: VITALY CASILLAS 1955 UNIT/AGE/GENDER: AGE: 67 YR GENDER: M UNIT NUMBER: [id number] ACCESSION NUMBER: [id number] DATE OF EXAM: 05/20/2022 17:02 EXAMINATION(S): ECG 12-LEAD FINAL REPORT Procedure: ELECTROCARDIOGRAM RESULT Heart Rate 56 P-R Interval 140 ms QRS Interval 110 ms QT Interval 468 ms QTC Interval 452 ms P Oran 22 deg QRS Oran 21 deg T Wave Oran 7 deg DATE: 05/20/2022 17:02 SINUS BRADYCARDIA NONSPECIFIC INTRAVENTRICULAR CONDUCTION DELAY Summary: Abnormal ECG Electronically signed by Dominick Murphy 05/21/2022 08:39 Julio Wharton MD ECG ORDERABLES Final Result [facility] * 20 min. EEG routine Normal Sleep (05/20/2022 2:58 PM EDT) Narrative OR [facility] - 05/20/2022 2:58 PM EDT Tyree Donovan MD 05/20/2022 3:04 PM ADULT ELECTROENCEPHALOGRAM REPORT FACILITY: [facility] AGE/GENDER: 67 yr/o male PATIENT NAME/: Vitaly Casillas 1955 PROCEDURE DATE: 05/20/2022 EXAM# : [id number] CLINICAL INFORMATION: AMS RECORDING CONDITIONS: This is [...] preclude a clinical diagnosis of seizures. Tyree Doonvan II, MD [facility] Lissette Richardshodaryl DO NEUROLOGY ORDERABLES Fin al Result [facility] * (ABNORMAL) .Urinalysis with microscopic, reflex culture (05/20/2022 6:34 AM EDT) Only the most recent of2 resultswithin the time period is included. Color-Urine Yellow 05/20/2022 7:02 AM [facility] Clarity-Urine Clear 05/20/2022 7:02 AM [facility] Specific Richardson Urine 1.034(H) 1.005 - 1.030 (arb'U) 05/20/2022 7:02 AM [facility] Comment:Elevated specific gr avity may be seen when urine contains x ray contrast media, plasma expanders, and/or large amounts of glucose or protein. Correlate specific gravity findings to patient clinical history. pH-Urine 8.5 5.0 - 9.0 (pH) 05/20/2022 7:02 AM [facility] Protein-Urine 600(A) Negative mg/dL 05/20/2022 7:02 AM [facility] Glucose-Urine 50(A) Negative mg/dL 05/20/2022 7:02 AM [facility] Ketone-Urine Negative Negative mg/dL 05/20/2022 7:02 AM [facility] Bilirubin-Urine Negative Negative mg/dL 05/20/2022 7:02 AM [facility] Occult Blood-Urine 1+(A) Negative (arb'U) 05/20/2022 7:02 AM [facility] Nitrite-Urine Negative Negative (arb'U) 05/20/2022 7:02 AM [facility] Urobilinogen-Uri ne Normal Normal (EhrlichU)/ dL 05/20/2022 7:02 AM [facility] Leukocyte Esterase-Urine 25(A) Negative (arb'U) 05/20/2022 7:02 AM [facility] Source-Urine Urine De Los Santos Cath 05/20/2022 5:22 AM [facility] WBC-Urine 40(H) 0 - 3 (HPF) 05/20/2022 7:02 AM [facility] RBC-Urine 45(H) 0 - 2 (HPF) 05/20/2022 7:02 AM [facility] Squamous Epithelial-Urine <1 0 - 4 (HPF) 05/20/2022 7:02 AM [facility] Bacteria-Urine TRACE(A) None Seen (HPF) 05/20/2022 7:02 AM [facility] Mucus-Urine TRACE(A) None Seen (LPF) 05/20/2022 7:02 AM [facility] Transitional Epithelial-Urine <1 0 - 2 (HPF) 05/20/2022 7:02 AM [facility] Urine URINE SPECIMEN / Unknown 05/20/2022 6:34 AM EDT 05/20/2022 6:50 AM EDT us Luz Kumari MD URINE ORDERABLES Becca lynne Result [facility] ([id number]) [address] [place] [address] [facility] [address] [place] [address] * (ABNORMAL) Toxicology Screen, urine (05/20/2022 6:34 AM EDT) Amphetamines-Urine Scrn Negative Negative 05/20/2022 7:04 AM [facility] Comment: Screening cut off 500ng/mL. (note) Testing for medical purposes only. Positive results are not automatically confirmed. This assay has poor sensitivity for methylphenidate (eg Ritalin), a methylphenidate specific assay is needed to monitor compliance with these medications. Barbiturates-Urine Screen POSITIVE(A) Negative 05/20/2022 7:04 AM [facility] Comment: Screening cut off 200ng/mL. (note) Testing for medical purposes only. Positive results are not automatically confirmed. Benzodiazepines-Ur ine Screen POSITIVE(A) Negative 05/20/2022 7:04 AM [facility] Comment: Screening cut off 200ng/mL. (note) Testing for medical purposes only. Positive results are not automatically confirmed. Cannabinoids-Urine Screen Negative Negative 05/20/2022 7:04 AM [facility] Comment: Screening cut off 50ng/mL. (note) Testing for medical purposes only. Positive results are not automatically confirmed. Cocaine-Urine Screen Negative Negative 05/20/2022 7:04 AM [facility] Comment: Screening cut off 300ng/mL. (note) Testing for medical purposes only. Positive results are not automatically confirmed. Opiates-Urine Screen Negative Negative 05/20/2022 7:04 AM [facility] Comment: Screening cut off 300ng/mL. [...] Kumari MD URINE ORDERABLES Becca lynne Result [facility] ([id number]) [address] [place] [address] [facility] [address] [place] [address] * Culture,Urine (05/20/2022 6:34 AM EDT) Special Requests Urine (arb'U) 05/23/2022 1:54 PM EDT [facility] Culture Final no growth 05/21/2022 9:32 AM EDT [facility] Urine 05/20/2022 6:34 AM EDT 05/20/2022 6:50 AM EDT us Luz Kumari MD MICROBIOLOGY - GENERA L ORDERABLES Final Result [facility] [address] [facility] [address] [place] [address] [facility] [address] [facility] [address] [place] [address] * (ABNORMAL) Lactic Acid (05/20/2022 4:33 AM EDT) Lactic Acid 2.2(H) 0.7 - 2.0 mmol/L 05/20/2022 4:38 AM EDT [facility] RT Serum BLOOD SPECIMEN FROM PATIENT / Unknown 05/20/2022 4:33 AM EDT 05/20/2022 4:32 AM EDT us Luz Kumari MD LAB BLOOD ORDERABLES Final Result [facility] RT [address] [place] [address], [facility] [phone] [facility] [address] [place] [address] * .Partial Thromboplastin Time (05/20/2022 4:33 AM EDT) Only the most recent of3 resultswithin the time period is included. Partial Thromboplastin Time 25.3 25.1 - 36.5 s 05/20/2022 5:06 AM EDT [facility] Comment: (note) Anticoagulants may alter the results [...] BLOOD ORDERABLES Final Result Performing Organization Address City/Va Hospital/ZIP Co de Phone Number [facility] ([id number]) [address] [place] [address] [address] * Troponin (05/20/2022 4:33 AM EDT) [facility] Troponin 0.012 0.000 - 0.028 ng/mL 05/20/2022 4:55 AM EDT [facility] Comment: (note) Levels >0.028 are greater than the 99th percentile and suggest possible need for clinical correlation and serial testing. Plasma BLOOD SPECIMEN FROM PATIENT / Unknown 05/20/2022 4:33 AM EDT 05/20/2022 4:33 AM EDT Luz Kumari MD LAB BLOOD ORDERABLES Final Result Performing Organization Address City/Va Hospital/ZIP Co de Phone Number [facility] ([id number]) [address] [place] [address] [address] * (ABNORMAL) Urinalysis (05/20/2022 4:33 AM EDT) Only the most recent of2 resultswithin the time period is included. Color-Urine Light yellow 05/20/2022 5:03 AM [facility] Clarity-Urine Clear 05/20/2022 5:03 AM [facility] Specific Richardson Urine 1.038(H) 1.005 - 1.030 (arb'U) 05/20/2022 5:03 AM [facility] Comment:Elevated specific gr avity may be seen when urine contains x ray contrast media, plasma expanders, and/or large amounts of glucose or protein. Correlate specific gravity findings to patient clinical history. pH-Urine 8.0 5.0 - 9.0 (pH) 05/20/2022 5:03 AM [facility] Protein-Urine >600(A) Negative mg/dL 05/20/2022 5:03 AM [facility] Glucose-Urine 50(A) Negative mg/dL 05/20/2022 5:03 AM [facility] Ketone-Urine Negative Negative mg/dL 05/20/2022 5:03 AM [facility] Bilirubin-Uri ne Negative Negative mg/dL 05/20/2022 5:03 AM [facility] Occult Blood-Urine 1+(A) Negative (arb'U) 05/20/2022 5:03 AM [facility] Nitrite-Urine Negative Negative (arb'U) 05/20/2022 5:03 AM [facility] Urobilinogen- Urine Normal Normal (EhrlichU)/ dL 05/20/2022 5:03 AM [facility] Leukocyte Esterase-Urin e Negative Negative (arb'U) 05/20/2022 5:03 AM [facility] Source-Urine Urine De Los Santos Cath 05/20/2022 3:45 AM [facility] Reflex Microscopic? Microscopic performed 05/20/2022 5:03 AM [facility] RBC-Urine 47(H) 0 - 2 (HPF) 05/20/2022 5:03 AM [facility] WBC-Urine 30(H) 0 - 3 (HPF) 05/20/2022 5:03 AM EDT [facility] Squamous Epithelial-Ur ine <1 0 - 4 (HPF) 05/20/2022 5:03 AM EDT [facility] Bacteria-Urin e TRACE(A) None Seen (HPF) 05/20/2022 5:03 AM EDT [facility] Urine URINE SPECIMEN / Unknown 05/20/2022 4:33 AM EDT 05/20/2022 4:55 AM EDT us Luz Kumari MD URINE ORDERABLES Becca lynne Result [facility] ([id number]) [address] [place] [address] [facility] [address] [place] [address] * Protime-INR (05/20/2022 4:33 AM EDT) Only the most recent of3 resultswithin the time period is included. Prothrombin Time 11.4 10.3 - 13.3 s 05/20/2022 5:06 AM EDT [facility] Comment: (note) Anticoagulants may alter the results of Laboratory Coagulation assays. New-generation anticoagulants such as direct Thrombin inhibitors (Dabigatran/Pradaxa, Argatroban, Bivalrudin) and direct/indirect factor Xa inhibitors (Rivaroxaban/Xarelto,Apixaban/Eliquis, Danaparoid/Orgaran, Fondaparinux/Arixtra) have been shown to affect the results of Laboratory Coagulation assays, creating falsely elevated or decreased values. Correlation with medication history is advised. INR 1.0 INR 05/20/2022 5:06 AM EDT [facility] Comment: INR Therapeutic Ranges: Low Intensity Range: 2.0-3.0 High Intensity Range: 3.0-4.5 Plasma BLOOD SPECIMEN FROM PATIENT / Unknown 05/20/2022 4:33 AM EDT 05/20/2022 4:33 AM EDT us Luz Kumari MD LAB BLOOD ORDERABLES Final Result [facility] ([id number]) [address] [place] [address] [id number] [place] [address] * (ABNORMAL) CK (05/20/2022 4:33 AM EDT) CK 28(L) 30 - 200 U/L 05/20/2022 4:58 AM EDT [facility] Plasma BLOOD SPECIMEN FROM PATIENT / Unknown 05/20/2022 4:33 AM EDT 05/20/2022 4:33 AM EDT Luz Kumari MD LAB BLOOD ORDERABLES Final Result Performing Organization Address City/Va Hospital/ZIP Co de Phone Number [facility] ([id number]) [address] [place] [address] [facility] [address] [place] [address] * XR Chest 1 Vw (05/20/2022 4:03 AM EDT) Only the most recent of3 resultswithin the time period is included. Anatomical Region Laterality Modality Chest [facility] Radiographic Imaging 05/20/2022 7:17 AM EDT Narrative 05/20/2022 7:19 AM EDT REVIEWING YOUR TEST RESULTS IN [facility] IS NOT A SUBSTITUTE FOR DISCUSSING THOSE RESULTS WITH YOUR HEALTH CARE PROVIDER. PLEASE CONTACT YOUR PROVIDER [facility]IA [facility] TO DISCUSS ANY QUESTIONS OR CONCERNS YOU MAY HAVE REGARDING THESE TEST RESULTS. RADIOLOGY REPORT FACILITY: [facility] UNIT/AGE/GENDER: J.ICU IN AGE:67 Y SEX:M PATIENT NAME/: VITALY CASILLAS 1955 UNIT NUMBER: [id number] ACCESSION NUMBER: [id number] PORTABLE AP CHEST, SINGLE VIEW DATE: 05/20/2022 [...] - 05/20/2022 [facility]ING [facility] IS NOT A SUBSTITUTE FORDISCUSSING THOSE RESULTS WITH YOUR HEALTH CARE PROVIDER. PLEASE CONTACT YOUR PROVIDER [facility]IA [facility] TO DISCUSS ANY QUESTIONS ORCONCERNS YOU MAY HAVE REGARDING THESE TEST RESULTS. RADIOLOGY REPORT FACILITY: [facility] UNIT/AGE/GENDER: J.ICU IN AGE:67 Y SEX:M PATIENT NAME/: VITALY CASILLAS 1955 UNIT NUMBER: [id number] ACCESSION NUMBER: [id number] PORTABLE AP CHEST, SINGLE VIEW DATE: 05/20/2022 [...] Test POSITIVE (arb'U) 05/20/2022 3:57 AM EDT [facility] RT Temperature-AB G 37.0 37.0 Clara 05/20/2022 3:57 AM EDT [facility] RT pH-ABG 7.51(H) 7.35 - 7.45 PH 05/20/2022 3:57 AM EDT [facility] RT PCO2-ABG 38 35 - 48 mm(Hg) 05/20/2022 3:57 AM EDT [facility] RT PO2-ABG 128(H) 83 - 108 mm(Hg) 05/20/2022 3:57 AM EDT [facility] RT HCO3-ABG 30 22 - 30 mmol/L 05/20/2022 3:57 AM EDT [facility] RT VL63-ZEO 31(H) 19 - 24 mmol/L 05/20/2022 3:57 AM EDT [facility] RT Base Excess-ABG 6.7(H) 0.0 - 3.0 mmol/L 05/20/2022 3:57 AM EDT [facility] RT O2 Sat-ABG 100.0(H) 95.0 - 98.0 % 05/20/2022 3:57 AM EDT [facility] RT Whole Blood 05/20/2022 3:56 AM EDT 05/20/2022 3:57 AM EDT us Luz Kumari MD LAB BLOOD ORDERABLES Final Result [facility] RT [address] [place] [address], [facility] [phone] [facility] [address] [place] [address] * Culture,Blood (05/20/2022 3:53 AM EDT) Only the most recent of2 resultswithin the time period is included. Culture No Growth 05/26/2022 5:54 AM EDT [facility] Blood ARTERIAL LINE SUBMITTED SPECIMEN / Unknown 05/20/2022 3:53 AM EDT 05/20/2022 3:58 AM EDT Comment:Central Line us Luz Kumari MD MICROBIOLOGY - GENERA L ORDERABLES Final Result [facility] [address] [place] [address] [facility] [address] [place] [address] * (ABNORMAL) Comprehensive Metabolic Panel (CMP) (05/20/2022 3:47 AM EDT) Only the most recent of2 resultswithin the time period is included. Sodium 140 136 - 145 mmol/L 05/20/2022 4:18 AM [facility] Comment: (note) Excess protein and/or lipids can falsely decrease sodium levels (pseudo hyponatremia). Potassium 4.0 3.5 - 5.1 mmol/L 05/20/2022 4:18 AM [facility] Chloride 104 98 - 107 mmol/L 05/20/2022 4:18 AM [facility] Comment: (note) Falsely elevated chloride levels can be seen in patients taking medications which contain bromide. Carbon Dioxide 28 22 - 29 mmol/L 05/20/2022 4:18 AM [facility] Anion Gap 8 5 - 13 (arb'U) 05/20/2022 4:18 AM [facility] Comment: (note) Calculation- Na - (Cl + CO2) Glucose 118 71 - 139 mg/dL 05/20/2022 4:18 AM [facility] Comment: (note) Reference range based on inpatient hypo/hyperglycemic treatment levels. A random glucose =/>200 is concerning for poor control. Blood Urea Nitrogen (BUN) 23 8 - 26 mg/dL 05/20/2022 4:18 AM [facility] Creatinine-Blood 0.45(L) 0.73 - 1.18 mg/dL 05/20/2022 4:18 AM [facility] BUN/Creatinine Ratio 51.1 RATIO 05/20/2022 4:18 AM T [facility] Estimated GFR >60 >60 /1.73 m2 05/20/2022 4:18 AM T [facility] Comment: (note) Results do not take into account body mass. Valid for patients 18 to 70 years of age. Estimated GFR if -[place] >60 >60 /1.73 m2 05/20/2022 4:18 AM T [facility] Comment: (note) Results do not take into account body mass. Valid for patients 18 to 70 years of age. Total Protein 6.2 6.2 - 8.0 g/dL 05/20/2022 4:18 AM EDT [facility] Albumin 3.3 3.2 - 4.6 g/dL 05/20/2022 4:18 AM [facility] Globulin 2.9 1.5 - 4.5 g/dL 05/20/2022 4:18 AM [facility] Albumin/Globulin Ratio 1.1 1.1 - 2.5 RATIO 05/20/2022 4:18 AM [facility] Calcium 9.0 8.4 - 10.2 mg/dL 05/20/2022 4:18 AM [facility] Total Bilirubin 0.3 0.2 - 1.2 mg/dL 05/20/2022 4:18 AM [facility] AST/SGOT 10 5 - 34 U/L 05/20/2022 4:18 AM [facility] ALT/SGPT 20 0 - 55 U/L 05/20/2022 4:18 AM [facility] Alkaline Phosphatase 77 40 - 150 U/L 05/20/2022 4:18 AM [facility] Plasma BLOOD SPECIMEN FROM PATIENT / Unknown 05/20/2022 3:47 AM EDT 05/20/2022 3:53 AM EDT us Luz Kumari MD LAB BLOOD ORDERABLES Final Result [facility] ([id number]) [address] [place] [address] [facility] [address] [place] [address] * Potassium (04/04/2022 12:16 PM EDT) Potassium 3.9 3.5 - 5.1 mmol/L 04/04/2022 12:35 PM EDT [facility] Plasma specimen (specimen) BLOOD SPECIMEN FROM PATIENT / Unknown 04/04/2022 12:16 PM EDT 04/04/2022 12:21 PM EDT us Abiodun Duran MD LAB BLOOD ORDERABLES Final R esult [facility] ([id number]) [address] [place] [address] [facility] [address] [place] [address] * MRI Brain Wo & W Con (04/03/2022 3:37 PM EDT) Anatomical Region Laterality Modality Head [facility] Magnetic Res onance Imaging 04/03/2022 4:11 PM EDT Narrative 04/03/2022 4:25 PM EDT REVIEWING YOUR TEST RESULTS IN [facility] IS NOT A SUBSTITUTE FOR DISCUSSING THOSE RESULTS WITH YOUR HEALTH CARE PROVIDER. PLEASE CONTACT YOUR PROVIDER VIA [facility] TO DISCUSS ANY QUESTIONS OR CONCERNS YOU MAY HAVE REGARDING THESE TEST RESULTS. RADIOLOGY REPORT FACILITY: [facility] UNIT/AGE/GENDER: Tracy.ICU IN AGE:67 Y SEX:M PATIENT NAME/: VITALY CASILLAS 1955 UNIT NUMBER: [id number] ACCESSION NUMBER: [id number] MRI OF THE BRAIN WITH AND WITHOUT [...] - 04/03/2022 REVIEWING YOUR TEST RESULTS IN [facility] IS NOT A SUBSTITUTE FORDISCUSSING THOSE RESULTS WITH YOUR HEALTH CARE PROVIDER. PLEASE CONTACT YOUR PROVIDER VIA [facility] TO DISCUSS ANY QUESTIONS ORCONCERNS YOU MAY HAVE REGARDING THESE TEST RESULTS. RADIOLOGY REPORT FACILITY: [facility] UNIT/AGE/GENDER: Tracy.ICU IN AGE:67 Y SEX:M PATIENT NAME/: VITALY CASILLAS 1955 UNIT NUMBER: [id number] ACCESSION NUMBER: [id number] MRI OF THE BRAIN WITH AND WITHOUT [...] demonstrate mild symmetric volume loss. No abnormal [id number] identified within the suggest mesial temporal sclerosis. [...] 1624 1611 1611 us Lissette Flood DO [facility] MRI ORDERABLES Final Result * Procalcitonin (04/02/2022 10:08 AM EDT) Procalcitonin 0.13 0.1 - 0.5 ng/mL 04/02/2022 10:[facility] BLOOD SPECIMEN FROM PATIENT / Unknown 04/02/2022 10:08 AM EDT 04/02/2022 10:13 AM EDT David Garcia MD LAB BLOOD ORDERABLES Final Resu lt [facility] ([id number]) [address] [place] [address] [facility] [address] [place] [address] * (ABNORMAL) Culture, Sputum/Gram Stain (04/02/2022 9:57 AM EDT) Gram Stain Few Squamous Epithelial Cells 04/02/2022 10:45 AM EDT [facility] Gram Stain Many WBC's 04/02/2022 10:45 AM EDT [facility] Gram Stain Many Gram Positive Cocci in Pairs and Chains and Clusters 04/02/2022 10:45 AM EDT [facility] Gram Stain Few Gram Negative Bacillus 04/02/2022 10:45 AM EDT [facility] Gram Stain Many Gram Negative Diplococci 04/02/2022 10:45 AM EDT [facility] Culture Methicillin resistant Staphylococcus aureus Heavy Growth(A) [...] ORDERABL ES Final Result [facility] [address] [place] [address] [facility] [address] [place] [address] [facility] [address] [place] [address] * (ABNORMAL) Hemoglobin A1C (04/02/2022 4:22 AM [...] DO LAB BLOOD ORDERABLES Final R esult [facility] [address] [place] [address] [facility] [address] [place] [address] * CT Head Wo Contrast (04/01/2022 6:38 PM EDT) Anatomical Region Laterality Modality Head Computed Tomogra phy 04/01/2022 6:51 PM EDT Narrative 04/01/2022 6:53 PM EDT [facility]ING YOUR TEST RESULTS IN [facility] FOR DISCUSSING THOSE RESULTS WITH YOUR HEALTH CARE PROVIDER. PLEASE CONTACT YOUR PROVIDER VIA [employer] TO DISCUSS ANY QUESTIONS OR CONCERNS YOU MAY HAVE REGARDING THESE TEST RESULTS. RADIOLOGY REPORT FACILITY: [facility] UNIT/AGE/GENDER: J.ICU IN AGE:67 Y SEX:M PATIENT NAME/: VITALY CASILLAS 1955 UNIT NUMBER: [id number] ACCESSION NUMBER: [id number] DATE: 04/01/2022 HISTORY: Seizure, new-onset, no history [...] - 04/01/2022 REVIEWING YOUR TEST RESULTS IN [facility] NOT A SUBSTITUTE FORDISCUSSING THOSE RESULTS WITH YOUR HEALTH CARE PROVIDER. PLEASE CONTACT YOUR PROVIDER VIA [employer] TO DISCUSS ANY QUESTIONS ORCONCERNS YOU MAY HAVE REGARDING THESE TEST RESULTS. RADIOLOGY REPORT FACILITY: [facility] UNIT/AGE/GENDER: J.ICU IN AGE:67 Y SEX:M PATIENT NAME/: VITALY CASILLAS 1955 UNIT NUMBER: [id number] ACCESSION NUMBER: [id number] DATE: 04/01/2022 HISTORY: Seizure, new-onset, no history [...] Magan Alcaraz M.D. <PS><Electronically signed by: Magan Aclaraz M.D.> 04/01/20221851 1850 1850 [facility] DO [facility] CT ORDERABLES Final Result * XR Abdomen Ap Only (04/01/2022 4:45 PM EDT) Anatomical Region Laterality Modality Abdomen [facility] Radiographic Imaging 04/01/2022 5:19 PM EDT Narrative 04/01/2022 5:23 PM EDT REVIEWING YOUR TEST RESULTS IN [facility] IS NOT A SUBSTITUTE FOR DISCUSSING THOSE RESULTS WITH YOUR HEALTH CARE PROVIDER. PLEASE CONTACT YOUR PROVIDER VIA [facility] TO DISCUSS ANY QUESTIONS OR CONCERNS YOU MAY HAVE REGARDING THESE TEST RESULTS. RADIOLOGY REPORT FACILITY: [facility] UNIT/AGE/GENDER: Tracy.ICU IN AGE:67 Y SEX:M PATIENT NAME/: VITALY CASILLAS 1955 UNIT NUMBER: [id number] ACCESSION NUMBER: [id number] EXAM: XR CHEST 1 VW, XR ABDOMEN [...] - 04/01/2022 REVIEWING YOUR TEST RESULTS IN [facility] IS NOT A SUBSTITUTE FORDISCUSSING THOSE RESULTS WITH YOUR HEALTH CARE PROVIDER. PLEASE CONTACT YOUR PROVIDER VIA [employer] TO DISCUSS ANY QUESTIONS ORCONCERNS YOU MAY HAVE REGARDING THESE TEST RESULTS. RADIOLOGY REPORT FACILITY: [facility] UNIT/AGE/GENDER: Tracy.ICU IN AGE:67 Y SEX:M PATIENT NAME/: VITALY CASILLAS 1955 UNIT NUMBER: [id number] ACCESSION NUMBER: [id number] EXAM: XR CHEST 1 VW, XR ABDOMEN [...] Nehemias Conley M.D.> 04/01/2022 1722 1718 1718 Crater Vital Karl DO IMG DIAGNOSTIC IMAGING ORDER [...] Acidosis 05/20/2022 Other dysphagia 05/20/2022 Care Teams Master Scheduler Relationship Specialty Start Date End Date John Paul Orellana MD [address] [place] [address] PCP - General Internal Medicine 04/03/22
--- OUTSIDE RECORDS SUMMARY | 2025-08-06 15:44 | XMS_ITS | Encounter Summary ---
[facility] Address [address] [place] [address] Care Team Providers Care Cardiology Teacher Name Role Phone Gustavo Leggett MD Primary Care Provider [phone] Reason for Visit * Reason Onset Date Comments HOME HEALTH ORDER 11/13/2020 Encounter Details Date Type Department Care Team (Late st Contact Info) Description 11/13/2020 Telephone [facility] NEUROSURGERY [address] [facility] [address] [place] [address] Tyree Tan MD HOME HEALTH [...] 11/14/2020 12:58 PM EST Called Sina at [phone] and there was no answer,simply said not [...] PT Relationship: SELF Best call back number: [phone] What orders are you requesting (i.e. lab [...] documented as of this encounter Care Teams Cardiology Teacher Relationship Specialty Start Date End Date Gustavo Leggett MD [address] [place] [facility] [address] [place] [address] PCP - General Adolescent Medicine 07/14/23 documented as of this encounter
--- OUTSIDE RECORDS SUMMARY | 2025-08-06 15:44 | XMS_ITS | Encounter Summary ---
[facility] Address [address] [place] [address] Care Team Providers Care Analytical Research Program Manager Name Role Phone Gustavo Leggett MD Primary Care Provider [phone] Reason for Visit * Reason Onset Date Comments SURGERY QUESTIONS 02/08/2020 Encounter Details Date Type Department Care Team (Late st Contact Info) Description 02/08/2020 Telephone [facility] NEUROSURGERY [address] [facility] [address] [place] [address] Tyree Tan MD SURGERY QUESTIONS [...] documented as of this encounter Care Teams Analytical Research Program Manager Relationship Specialty Start Date End Date Gustavo Leggett MD [facility] [address] [place] [address] PCP - General Adolescent Medicine 07/14/23 documented as of this encounter
--- OUTSIDE RECORDS SUMMARY | 2025-08-06 15:45 | XMS_ITS | Clinical Summary ---
Author Organization [employer] ([place], [place], [place], [place], [place]) Address [address] [place] [address] Care Team Providers Care Marine Painter Name Role Phone Unavailable Primary Care Provider [...]
--- OUTSIDE RECORDS SUMMARY | 2025-08-06 15:45 | XMS_ITS | Clinical Summary ---
Author Organization [facility] Address [address] [place] [address] Care Team Providers Care Band Cutter Name Role Phone Gustavo Leggett MD Primary Care Provider [phone] Allergies Active Allergy Reactions Criticality Noted Date Comments Bupropion Unknown (See Comments) Low 03/06/2022 Codeine Nausea Only Low 04/28/2019 Hydrocodone Unknown (See Comments) Low 03/06/2022 Levetiracetam Other (See Comments) Medium 08/01/2023 Acute psychosis Ketorolac Tromethamine Unknown (See Comments) Low 03/06/2022 Medications * This document contains information received from the source organization and may not represent a complete record from that organization. multivitamin with minerals tablet tablet Take 1 [...] (Three) Times a Day As Needed. Active carvedilol (COREG) 3.125 MG tablet Take [...] (Two) Times a Day With Meals. Active ondansetron (ZOFRAN) 4 MG tablet Take 1 tablet by mouth Every 8 (Eight) Hours As Needed for Nausea or Vomiting. Active acetaminophen (TYLENOL) 500 MG tablet Take 2 tablets by mouth Every 8 (Eight) Hours for 30 days. 180 tablet 5 025 Active ziprasidone (GEODON) 20 MG capsule Take 1 capsule by mouth Every Night. 30 capsule 5 Active famotidine (PEPCID) 20 MG tablet Take 1 tablet by mouth 2 (Two) Times a Day Before Meals. 60 tablet 2 08/01/2025 2:24 PM EST 5 Active naloxone (NARCAN) 4 MG/0.1ML nasal spray Call 911. Don't prime. [place] in 1 nostril for overdose. Repeat in 2-3 minutes in other nostril if no or minimal breathing/respo nsiveness. 2 each 08/01/2025 2:24 PM EST 5 Active furosemide (LASIX) 40 MG tablet Take 1 tablet by mouth Daily. 0 025 Discontinu ed(Stop Taking at Discharge) pantoprazole (PROTONIX) 40 MG EC tablet Take 1 tablet by mouth 2 (Two) Times a Day. 025 Discontinu ed(Stop Taking at Discharge) sacubitril-chacha sartan (ENTRESTO) 24-26 MG tablet Take 1 tablet by mouth 2 (Two) Times a Day. 025 Discontinu ed(Stop Taking at Discharge) oxyCODONE (ROXICODONE) 15 MG immediate release tabletIndicati ons:Cellulitis of left lower extremity Take 1 tablet by mouth Every 4 (Four) Hours As Needed for Severe Pain for up to 3 days. 18 tablet 08/01/2025 2:24 PM EST 5 025 vancomycin (VANCOCIN) 125 MG capsuleIndicat ions:Clostridi oides Difficile Infection Take 1 capsule by mouth Daily for 7 days, THEN 1 capsule 1 (One) Time Per Week for 42 days. 13 capsule 5 025 Discontinu ed(Stop Taking at Discharge) Active Problems Problem Noted Date Diagnosed Date Acute UTI (urinary tract infection) 06/26/2025 Assessment & Plan (06/26/2025 10:46 AM EDT): Diarrhea of presumed infectious origin Assessment & Plan (06/26/2025 10:46 AM EDT): Acute on chronic blood loss anemia 06/26/2025 Assessment & Plan (06/26/2025 10:46 AM EDT): BPH without obstruction/lower urinary tract symp toms 06/26/2025 Assessment & Plan (06/26/2025 10:46 AM EDT): GERD without esophagitis 06/26/2025 Assessment & Plan (06/26/2025 10:46 AM EDT): Bilateral inguinal hernia 06/26/2025 Assessment & Plan (06/26/2025 10:46 AM EDT): - Recommend watchful waiting - Patient is poor operative candidate, would not recommend elective repair if asymptomatic - Surgery to sign off, follow-up PRN Management of remainder of hospital diagnoses per hospitalist and vascular surgery team, appreciate assistance. Gastroenteritis due to norovirus 06/26/2025 Cellulitis 06/02/2025 Assessment & Plan (06/26/2025 10:46 AM EDT): Type 2 diabetes mellitus, wi th long-term current use of insulin 08/31/2024 Assessment & Plan (06/26/2025 10:46 AM EDT): Arteriovenous fistula, acquired 08/31/2024 CHARLIE (acute kidney injury) 02/05/2024 Type 2 diabetes mellitus wit h diabetic peripheral angiopathy without gangrene, without long-term current use of insulin 01/15/2024 Mixed hyperlipidemia 01/15/2024 S/P AKA (above knee amputation), right PAD (peripheral artery disease) 09/01/2023 Assessment & Plan (06/26/2025 10:46 AM EDT): Altered mental status 08/03/2023 Left leg cellulitis 07/22/2023 Gangrene 07/07/2023 History of DVT (deep vein thrombosis) 07/07/2023 Severe sepsis 07/07/2023 Assessment & Plan (06/26/2025 10:46 AM EDT): Hx of migraine headaches 07/07/2023 Coronary artery disease invo lving false pass coronary artery of false pass heart without angina pectoris 07/07/2023 Assessment & Plan (06/26/2025 10:46 AM EDT): Pressure injury of buttock, stage 1 06/13/2023 Pressure ulcers of skin of multiple topographic sites 06/13/2023 Overview (06/17/2023): Added automatically from request for surgery [id number] Cellulitis of left foot 06/13/2023 Overview (06/17/2023): Added automatically from request for surgery [id number] Seizure disorder 06/21/2022 Assessment & Plan (06/26/2025 10:46 AM EDT): Adrenal insufficiency 06/21/2022 Dysphagia 06/21/2022 Moderate malnutrition [...] 04/28/2019 Frequent falls 04/28/2019 Primary hypertension 04/28/2019 Assessment & Plan (06/26/2025 10:46 AM EDT): Peripheral neuropathy 04/28/2019 Spinal stenosis of lumbar region 04/28/2019 Foot infection 04/28/2019 Spinal stenosis of thoracic region 04/28/2019 Overview (05/02/2019): Added automatically from request for surgery [id number] Complicated migraines H/O traumatic brain injury Resolved Problems Problem Noted Date Diagnosed Date Resolved Date Wound infection 01/15/2024 08/01/2025 Confusion 05/11/2022 05/14/2022 Somnolence 05/09/2022 05/14/2022 Cellulitis 04/28/2019 12/01/2021 Cervical disc herniation 04/28/201901/2020 Overview (05/03/2019): Added automatically from request for surgery [id number] Encounters Date Type Department Care Team Description 08/03/2025 Readmission Management [facility] [address] [place] [address] Diana Church, JESSEE 08/02/2025 Readmission Management [facility] [address] [place] [address] Marlyn Santoro, RN 07/03/2025 2:17 PM EDT Anesthesia Event [facility] [address] [place] [address] David Harrison MD Leigh, Taylor, CRNA 07/03/2025 12:31 PM EDT - 07/03/2025 2:44 PM EDT Surgery [facility] [address] [place] [address] Vaughn Hollingsworth, ARTERIOGRAM LOWER EXTREMITY 06/26/2025 Readmission Management [facility] [address] [place] [address] Ana Zamorano RN 06/25/2025 6:05 PM EDT - 08/02/2025 2:14 PM EST Hospital Encounter [facility] [address] [address] [place] [address] Vaughn Hartman MD Frandina, John L, MD Opii, Wycliffe, MD Gay, Bryce, DO Bhinder, Muhammad, MD Barbato, Hayley R, DO Sloan, Walker E, MD Bratton, Tracy M II, Cellulitis of left lower extremity (Primary Dx); Hematuria, unspecified type; Urinary tract infection associated with indwelling urethral catheter, initial encounter; Diarrhea, unspecified type; PAD (peripheral artery disease); Wound infection; Critical limb ischemia of left lower extremity Discharge Disposition: Home or Self Care 06/25/2025 Travel 06/13/2025 Readmission Management [facility] [address] [place] [address] Kate Loza RN 06/11/2025 Readmission Management [facility] [address] [place] [address] Marlyn Santoro, JESSEE 06/02/2025 9:29 AM EDT - 06/11/2025 3:45 PM EDT Hospital Encounter [facility] [address] [address] [place] [address] Pasha Miller MD Seibert-Jacobs, Christina Elly, MD Gilbert, Zakiya Fernandez, Stephanie Harris MD Edgar-Zarate, Courtney, MD Howard, Patricia Rangel MD Cellulitis of left lower extremity (Primary [...] of left foot Discharge Disposition: Home-Health Care [facility] 06/02/2025 Travel from Last 3 Months Immunizations [...] Given: Yes Alcohol Use Standard Drinks/Week Comments Never 0 [...] and heating? Not hard at all 06/26/2025 [facility] Occupational Stress Questionnaire Answer Date Recorded [...] things needed for daily living? No 06/26/2025 [facility] Utilities Answer Date Recorded In the past 12 months has th e e Health Access, gas, oil, or water company threatened to [...] GED or equivalent No 06/26/2025 Preferred Language Indian 06/26/2025 PHQ-2 Answer Date Recorded Patient Health [...] Mass Index 34.72 07/03/2025 11:35 AM EDT Plan of Treatment Health Maintenance Due Date Last Done Comments COLON CANCER SCREENING 5 BOOGIE Robles SIGMOIDOSCOPY [address] COLONOGRAPHY 1999 FECAL OCCULT BLOOD TEST 1999 FIT Testing (1 year) 1999 ZOSTER VACCINE (2 of 3) 01/06/2017 11/11/2016 Pneumococcal Vaccine 50+ (2 of 2 - PPSV23, PCV20, or PCV21) 11/11/2017 11/11/2016, 11/11/2016 ANNUAL WELLNESS VISIT 05/05/2019 COLOGUARD 02/12/2022 02/12/2019 COLORECTAL CANCER SCREENING 02/12/2022 INFLUENZA VACCINE 04/13/2025 06/13/2022, , 08/21/2020, Additional history exists COVID-19 Vaccine ( - 2024-2 6 season) 2025 08/25/2022, 06/03/2022, 12/17/2020, Additional history exists HEMOGLOBIN A1C 12/25/2025 06/26/2025, 08/14, 01/15/2024, Additional history exists LIPID PANEL 06/26/2026 06/26/2025, 08/01/2023 TDAP/TD VACCINES (3 - Td or Tdap) 04/22/2029 019, 04/22/2019 HEPATITIS C SCREENING Completed 05/28/2022, 022 Medical Devices Implanted Type Area Judo Instructor Device Identifier Shelf Expiration Date Model / Serial / Lot Fltr Jug Vena Cava Francine Del - [id number] Implanted:Qty: 1 on 05/02/2019 by Pedro Zapien MD at [facility] Implant BARD PERIPHERAL VASCULAR [id number] / / [id number] Description:MRI safety: Non- clinical testing demonstrated that the Terry Vena Cava Filter is MR Conditional. A patient with this implant can be scanned safely immediately after placement under the following conditions: Static magnetic field of 3-Jessica or 1.5-Jessica Spatial gradient magnetic field of 720-Gauss/cm or less Maximum MR system reported ghvuv-lsba-kxelpqry specific absorption rate (CHRISTEL) of 2-W/kg in the normal operating mode Hemost Abs Surgifoam Sz100 8x12 10mm - [id number] Implanted:Qty: 1 on 07/17/2020 by Tyree Tan MD at [facility] Implant Spine Cervical ETHICON DIV OF J AND J 1974 / / Kt Seal Hemos Abs Floseal Matrx Fast/Prep 10ml - [id number] Implanted:Qty: 1 on 07/17/2020 by Tyree Tan MD at [facility] Implant Spine Cervical [employer] 10/08/2021 [id number] / / [id number] Putty Dbm Peter 6cc - [id number] - [id number] Implanted:Qty: 1 on 07/17/2020 by Tyree Tan MD at [facility] Implant Spine Cervical [employer] 06/05/2022 [id number] / [id number] / Spacr Lrd Spine Endoskeleton Nanolock Tc 6deg [id number] Sm - [id number] Implanted:Qty: 1 on 07/17/2020 by Tyree Tan MD at [facility] Implant Spine Cervical [employer] 09/24/2024 [id number] / / [id number] Coil Marlin Emb Fill Complex Sft 2mm 2cm - [id number] Implanted:Qty: 1 on 09/07/2024 by Jared Marcano MD at [facility]plant [facility]/2031 [id number] / / [id number] Coil Marlin Emb Fill Complex Jsft 15cm - [id number] Implanted:Qty: 1 on 09/07/2024 by Jared Marcano MD at [facility] Implant PENUMBRA 03/21/2030 [id number] / / [id number] Coil Marlin Emb Fill Complex Jsft 8mm 60cm - [id number] Implanted:Qty: 1 on 09/07/2024 by Jared Marcano MD at [facility] Implant PENUMBRA 07/19/2030 [id number] / / [id number] Procedures Procedure Name Priority Date/Time Associated Diagnosis Comments POCT GLUCOSE FINGERSTICK Routine 025 7:46 AM EST POCT GLUCOSE FINGERSTICK Routine 025 8:09 PM EST POCT GLUCOSE FINGERSTICK Routine 025 4:55 PM EST POCT GLUCOSE FINGERSTICK Routine 025 12:18 PM EST POCT GLUCOSE FINGERSTICK Routine 7:30 AM EST POCT GLUCOSE FINGERSTICK Routine 7:42 PM EST POCT GLUCOSE FINGERSTICK Routine 025 4:46 PM EST POCT GLUCOSE FINGERSTICK Routine 12:09 PM EST POCT GLUCOSE FINGERSTICK Routine 025 7:24 AM EST POCT GLUCOSE FINGERSTICK Routine 025 8:17 PM EST POCT GLUCOSE FINGERSTICK Routine 025 4:32 PM EST POCT GLUCOSE FINGERSTICK Routine 11:33 AM EST POCT GLUCOSE FINGERSTICK Routine 025 7:26 AM EST POCT GLUCOSE FINGERSTICK Routine 025 8:52 PM EST POCT GLUCOSE FINGERSTICK Routine 025 4:49 PM EST POCT GLUCOSE FINGERSTICK Routine 025 11:30 AM EST POCT GLUCOSE FINGERSTICK Routine 025 7:30 AM EST POCT GLUCOSE FINGERSTICK Routine 025 7:[address] HEAD WO CONTRAST STAT 07/28/2025 7 :28 PM EST POCT GLUCOSE FINGERSTICK Routine 025 4:56 PM EST POCT GLUCOSE FINGERSTICK Routine 3:53 PM EST POCT GLUCOSE FINGERSTICK Routine 025 11:49 AM EST POCT GLUCOSE FINGERSTICK Routine 7:24 AM EST POCT GLUCOSE FINGERSTICK Routine 8:51 PM EST POCT GLUCOSE FINGERSTICK Routine 4:43 PM EST POCT GLUCOSE FINGERSTICK Routine 12:51 PM EST POCT GLUCOSE FINGERSTICK Routine 7:27 AM EST POCT GLUCOSE FINGERSTICK Routine 025 7:58 PM EST POCT GLUCOSE FINGERSTICK Routine 025 5:10 PM EST POCT GLUCOSE FINGERSTICK Routine 025 7:34 AM EST POCT GLUCOSE FINGERSTICK Routine 025 9:06 PM EST POCT GLUCOSE FINGERSTICK Routine 025 11:32 AM EST POCT GLUCOSE FINGERSTICK Routine 025 7:26 AM EST BASIC METABOLIC PANEL Timed 07/25/2025 6:17 AM EST POCT GLUCOSE FINGERSTICK Routine 025 1:25 AM EST POCT GLUCOSE FINGERSTICK Routine 025 5:43 PM EST POCT GLUCOSE FINGERSTICK Routine [...] POCT GLUCOSE FINGERSTICK Routine 8:13 AM EST BASIC METABOLIC PANEL Routine 07/23/2025 4:42 AM EST VANCOMYCIN, RANDOM Routine 07/23/2025 4: 42 AM EST OSCILLATING POSITIVE EXPIRATORY PRESSURE (OPEP) [...] PRESSURE (OPEP) Routine 07/18/2025 9:31 AM EST BASIC METABOLIC PANEL Routine 07/18/2025 3:37 AM EST MAGNESIUM Routine 07/18/2025 3:37 AM EST VANCOMYCIN, RANDOM Routine 07/18/2025 3: 37 AM EST OSCILLATING POSITIVE EXPIRATORY PRESSURE (OPEP) Routine 07/17/2025 9:30 PM EST POCT GLUCOSE FINGERSTICK Routine 9:15 PM EST POCT GLUCOSE FINGERSTICK Routine 4:13 PM EST POCT GLUCOSE FINGERSTICK Routine 12:31 PM EST OSCILLATING POSITIVE EXPIRATORY PRESSURE (OPEP) Routine 07/17/2025 9:31 AM EST POCT GLUCOSE FINGERSTICK Routine 7:53 AM EST CBC (NO DIFF) Routine 07/17/2025 5:48 AM EST BASIC METABOLIC PANEL Routine 07/17/2025 5:48 AM EST MAGNESIUM Routine 07/17/2025 5:48 AM EST OSCILLATING POSITIVE EXPIRATORY PRESSURE (OPEP) Routine 07/16/2025 9:30 PM EST POCT GLUCOSE FINGERSTICK Routine 8:02 PM EST POCT GLUCOSE FINGERSTICK Routine 4:58 PM EST POCT GLUCOSE FINGERSTICK Routine 11:25 AM EST OSCILLATING POSITIVE EXPIRATORY PRESSURE (OPEP) Routine 07/16/2025 9:31 AM EST POCT GLUCOSE FINGERSTICK Routine 7:50 AM EST CBC (NO DIFF) Routine 07/16/2025 4:47 AM EST BASIC METABOLIC PANEL Routine 07/16/2025 4:47 AM EST MAGNESIUM Routine 07/16/2025 4:47 AM EST OSCILLATING POSITIVE [...] (NO DIFF) Routine 07/15/2025 4:32 AM EST BASIC METABOLIC PANEL Routine 07/15/2025 4:32 AM EST MAGNESIUM Routine 07/15/2025 4:32 AM EST OSCILLATING POSITIVE [...] PLASMA STAT 07/14/2025 4 :26 AM EDT VANCOMYCIN, RANDOM Routine 07/14/2025 4: 25 AM EDT MAGNESIUM Routine 07/14/2025 4:25 AM EDT CBC (NO DIFF) Routine 07/14/2025 4:25 AM EDT BASIC METABOLIC PANEL Routine 07/14/2025 [...] PRESSURE (OPEP) Routine 07/13/2025 9:30 AM EDT MAGNESIUM Routine 07/13/2025 8:08 AM EDT CBC (NO DIFF) Routine 07/13/2025 8:08 AM EDT POCT GLUCOSE FINGERSTICK Routine 7:22 AM EDT BASIC METABOLIC PANEL Timed [...] ECG 12-LEAD STAT 07/12/2025 6:30 AM EDT MAGNESIUM Routine 07/12/2025 4:54 AM EDT CBC (NO DIFF) Routine 07/12/2025 4:54 AM EDT BASIC METABOLIC [...] ECG 12-LEAD STAT 07/11/2025 5:52 AM EDT VANCOMYCIN, RANDOM Routine 07/11/2025 4: 23 AM EDT MAGNESIUM Routine 07/11/2025 4:23 AM EDT CBC (NO DIFF) Routine 07/11/2025 4:23 AM EDT BASIC METABOLIC PANEL Routine 07/11/2025 [...] (NO DIFF) Timed 07/09/2025 7:12 AM EDT BASIC METABOLIC PANEL Timed 07/09/2025 7:12 AM EDT VANCOMYCIN, TROUGH Timed 07/09/2025 7: 12 AM EDT MAGNESIUM Routine 07/09/2025 7:12 AM EDT OSCILLATING POSITIVE EXPIRATORY PRESSURE (OPEP) Routine 07/08/2025 9:30 PM EDT POCT GLUCOSE FINGERSTICK Routine 8:39 PM EDT POCT GLUCOSE FINGERSTICK Routine 10/26/2 025 4:38 PM EDT BASIC METABOLIC PANEL STAT 07/08/2025 2:18 PM EDT POCT GLUCOSE FINGERSTICK Routine 025 12:12 PM EDT OSCILLATING POSITIVE EXPIRATORY PRESSURE (OPEP) Routine 07/08/2025 9:30 AM EDT POCT GLUCOSE FINGERSTICK Routine 025 7:50 AM EDT MAGNESIUM Routine 07/08/2025 5:42 AM EDT CBC (NO DIFF) Routine 07/08/2025 5:42 AM EDT BASIC METABOLIC PANEL Routine 07/08/2025 5:42 AM EDT OSCILLATING POSITIVE EXPIRATORY PRESSURE (OPEP) Routine 07/07/2025 9:30 PM EDT POCT GLUCOSE FINGERSTICK Routine 7:12 PM EDT POCT GLUCOSE FINGERSTICK Routine 025 4:30 PM EDT POCT GLUCOSE FINGERSTICK Routine 025 11:50 AM EDT OSCILLATING POSITIVE EXPIRATORY PRESSURE (OPEP) Routine 07/07/2025 9:30 AM EDT POCT GLUCOSE FINGERSTICK Routine 025 7:34 AM EDT MAGNESIUM Routine 07/07/2025 3:43 AM EDT CBC (NO DIFF) Routine 07/07/2025 3:43 AM EDT BASIC METABOLIC PANEL Routine 07/07/2025 3:43 AM EDT OSCILLATING POSITIVE EXPIRATORY PRESSURE (OPEP) Routine 07/06/2025 9:30 PM EDT POCT GLUCOSE FINGERSTICK Routine 10/24/2 025 7:31 PM EDT POCT GLUCOSE FINGERSTICK Routine 5:19 PM EDT POCT GLUCOSE FINGERSTICK Routine 4:27 PM EDT POCT GLUCOSE FINGERSTICK Routine 3:26 PM EDT ECG 12-LEAD STAT 07/06/2025 3:14 PM EDT MAGNESIUM Routine 07/06/2025 12:46 PM EDT CBC (NO DIFF) Routine 07/06/2025 12:46 PM EDT BASIC METABOLIC [...] 9:30 PM EDT POCT GLUCOSE FINGERSTICK Routine 8:13 PM EDT POCT GLUCOSE FINGERSTICK Routine 4:46 PM EDT POCT GLUCOSE FINGERSTICK Routine 12:03 PM EDT OSCILLATING POSITIVE EXPIRATORY PRESSURE (OPEP) Routine 07/04/2025 9:31 AM EDT POCT GLUCOSE FINGERSTICK Routine 7:32 AM EDT EEG AWAKE OR DROWSY PORTABLE Routine 07/04/2025 7:10 AM EDT POTASSIUM STAT 07/04/2025 6:15 AM EDT ECG 12-LEAD Routine 07/04/2025 5:38 AM EDT CBC AND DIFFERENTIAL STAT 07/04/2025 3:47 AM EDT VANCOMYCIN, RANDOM Routine 07/04/2025 3: 47 AM EDT CBC WITH AUTO DIFFERENTIAL STAT 07/04/2025 3:47 AM EDT BASIC METABOLIC PANEL STAT 07/04/2025 [...] OR PROCEDURE Routine 07/03/2025 3:44 PM EDT ANESTHESIA INTUBATION Routine 07/03/2025 2:35 PM EDT INCISION AND DRAINAGE LOWER EXTREMITY [...] GLUCOSE FINGERSTICK Routine 025 7:31 AM EDT BASIC METABOLIC PANEL Routine 07/01/2025 3:29 AM EDT OSCILLATING POSITIVE EXPIRATORY PRESSURE (OPEP) Routine 06/30/2025 9:30 PM EDT POCT GLUCOSE FINGERSTICK Routine 025 7:31 PM EDT POCT GLUCOSE FINGERSTICK Routine 025 4:29 PM EDT POCT GLUCOSE FINGERSTICK Routine 025 11:52 AM EDT OSCILLATING POSITIVE EXPIRATORY PRESSURE (OPEP) Routine 06/30/2025 9:30 AM EDT POCT GLUCOSE FINGERSTICK Routine 025 7:42 AM EDT CBC AND DIFFERENTIAL Routine 06/30/2025 4:29 AM EDT CBC WITH AUTO DIFFERENTIAL Routine 06/30/2025 4:29 AM EDT VANCOMYCIN, [...] PANEL Routine 06/29/2025 6:24 AM EDT CBC AND DIFFERENTIAL Routine 06/29/2025 6:23 AM EDT CBC WITH AUTO DIFFERENTIAL Routine 06/29/2025 6:23 AM EDT OSCILLATING POSITIVE EXPIRATORY PRESSURE (OPEP) Routine 06/28/2025 9:30 PM EDT POCT GLUCOSE FINGERSTICK Routine 8:17 PM EDT POCT GLUCOSE FINGERSTICK Routine 025 5:01 PM EDT POCT GLUCOSE FINGERSTICK Routine 025 11:44 AM EDT OSCILLATING POSITIVE EXPIRATORY PRESSURE (OPEP) Routine 06/28/2025 9:31 AM EDT POCT GLUCOSE FINGERSTICK Routine 025 7:39 AM EDT BASIC METABOLIC PANEL Routine 06/28/2025 4:00 AM EDT VANCOMYCIN, RANDOM Routine 06/28/2025 4: 00 AM EDT OSCILLATING POSITIVE EXPIRATORY PRESSURE (OPEP) Routine 06/27/2025 9:30 PM EDT POCT GLUCOSE FINGERSTICK Routine 8:24 PM EDT POCT GLUCOSE FINGERSTICK Routine 025 4:18 PM EDT ECG 12-LEAD Routine 06/27/2025 3:32 PM EDT POCT GLUCOSE FINGERSTICK Routine 11:10 AM EDT OSCILLATING POSITIVE EXPIRATORY PRESSURE (OPEP) Routine 06/27/2025 9:31 AM EDT POCT GLUCOSE FINGERSTICK Routine 7:19 AM EDT CBC AND DIFFERENTIAL Routine 06/27/2025 4:00 AM EDT CBC WITH AUTO DIFFERENTIAL Routine 06/27/2025 4:00 AM EDT MAGNESIUM [...] PRESSURE (OPEP) Routine 06/26/2025 9:31 AM EDT TYPE AND SCREEN STAT 06/26/2025 7:41 AM EDT FERRITIN Routine 06/26/2025 7:41 AM EDT VITAMIN B12 Routine 06/26/2025 7:41 AM EDT IRON PROFILE Routine 06/26/2025 7:41 AM EDT TSH RFX ON ABNORMAL TO FREE T4 Routine 06/26/2025 7:41 AM EDT CK Routine 06/26/2025 7:41 AM EDT LIPID PANEL Routine 06/26/2025 7:41 AM EDT PHOSPHORUS Routine 06/26/2025 7:41 AM EDT MAGNESIUM Routine 06/26/2025 7:41 AM EDT HEMOGLOBIN A1C Routine 06/26/2025 7:41 AM EDT PROTIME-INR Routine 06/26/2025 7:41 AM EDT LACTIC ACID, PLASMA Routine 06/26/2025 7 :41 AM EDT COMPREHENSIVE METABOLIC PANEL Routine 06/26/2025 [...] GLUCOSE FINGERSTICK Routine 025 12:51 AM EDT CLOSTRIDIOIDES DIFFICILE TOXIN AG (REFLEX ONLY) STAT 06/26/2025 12:46 AM EDT MRSA DNA PROBE Routine 06/26/2025 12:46 AM EDT CLOSTRIDIOIDES DIFFICILE TOXIN, PCR STAT 06/26/2025 12:46 AM EDT CLOSTRIDIOIDES DIFFICILE TOXIN STAT 06/26/2025 12:46 AM EDT GASTROINTESTINAL PANEL, PCR (PREFERRED) DOES NOT INCLUDE CDIFF STAT 06/26/2025 12:46 AM EDT WOUND OSTOMY [...] WOUND CULTURE STAT 06/25/2025 6:18 PM EDT CBC AND DIFFERENTIAL STAT 06/25/2025 6:17 PM EDT CBC WITH AUTO DIFFERENTIAL STAT 06/25/2025 6:17 PM EDT C-REACTIVE PROTEIN STAT 06/25/2025 6: 17 PM EDT PROCALCITONIN STAT 06/25/2025 6:17 PM EDT LACTIC ACID, PLASMA STAT 06/25/2025 6 :17 PM EDT COMPREHENSIVE METABOLIC PANEL STAT 06/25/2025 6:17 PM EDT POCT GLUCOSE FINGERSTICK Routine 025 11:25 AM EDT POCT GLUCOSE FINGERSTICK Routine 025 7:16 AM EDT POCT GLUCOSE FINGERSTICK Routine 025 8:14 PM EDT SCANNED - TELEMETRY 06/10/2025 6:49 PM EDT POCT GLUCOSE FINGERSTICK Routine 025 4:31 PM EDT POCT GLUCOSE FINGERSTICK Routine 025 11:43 AM EDT POCT GLUCOSE FINGERSTICK Routine 025 7:53 AM EDT SCANNED - TELEMETRY 06/10/2025 7 :27 AM EDT CBC AND DIFFERENTIAL Routine 06/10/2025 6:15 AM EDT CBC WITH AUTO DIFFERENTIAL Routine 06/10/2025 6:15 AM EDT BASIC METABOLIC PANEL Routine 06/10/2025 6:15 AM EDT POCT GLUCOSE FINGERSTICK Routine 025 8:06 PM EDT SCANNED - TELEMETRY 06/09/2025 8 :01 PM EDT POCT GLUCOSE FINGERSTICK Routine 025 4:54 PM EDT POCT GLUCOSE FINGERSTICK Routine 025 11:51 AM EDT POCT GLUCOSE FINGERSTICK Routine 025 8:01 AM EDT CBC AND DIFFERENTIAL Routine 06/09/2025 4:37 AM EDT CBC WITH AUTO DIFFERENTIAL Routine 06/09/2025 4:37 AM EDT BASIC METABOLIC PANEL Routine 06/09/2025 4:37 AM EDT POCT GLUCOSE FINGERSTICK Routine 025 8:47 PM EDT POCT GLUCOSE FINGERSTICK Routine 025 4:25 PM EDT POCT GLUCOSE FINGERSTICK Routine 025 11:17 AM EDT POCT GLUCOSE FINGERSTICK Routine 025 7:31 AM EDT SCANNED - TELEMETRY 06/08/2025 3 :25 AM EDT POCT GLUCOSE FINGERSTICK Routine 025 8:29 PM EDT POCT GLUCOSE FINGERSTICK Routine 025 4:19 PM EDT POCT GLUCOSE FINGERSTICK Routine 025 11:00 AM EDT POCT GLUCOSE FINGERSTICK Routine 025 7:17 AM EDT POCT GLUCOSE FINGERSTICK Routine 025 9:06 PM EDT SCANNED - TELEMETRY 06/06/2025 8 :08 PM EDT POCT GLUCOSE FINGERSTICK Routine 025 4:25 PM EDT POCT GLUCOSE FINGERSTICK Routine 025 11:01 AM EDT POCT GLUCOSE FINGERSTICK Routine 025 7:43 AM EDT SCANNED - TELEMETRY 06/05/2025 8 :27 PM EDT POCT GLUCOSE FINGERSTICK Routine 025 8:07 PM EDT SCANNED - TELEMETRY 06/05/2025 6 :40 PM EDT POCT GLUCOSE FINGERSTICK Routine 025 4:39 PM EDT POCT GLUCOSE FINGERSTICK Routine 025 11:02 AM EDT POCT GLUCOSE FINGERSTICK Routine 025 7:50 AM EDT POCT GLUCOSE FINGERSTICK Routine 025 7:50 PM EDT SCANNED - TELEMETRY 06/04/2025 7 :18 PM EDT SCANNED - TELEMETRY 06/04/2025 4 :27 PM EDT POCT GLUCOSE FINGERSTICK Routine 025 4:10 PM EDT POCT GLUCOSE FINGERSTICK Routine 025 11:07 AM EDT POCT GLUCOSE FINGERSTICK Routine 025 7:16 AM EDT CBC AND DIFFERENTIAL Urgent 06/04/2025 5:05 AM EDT CBC WITH AUTO DIFFERENTIAL Urgent 06/04/2025 5:05 AM EDT C-REACTIVE PROTEIN Urgent 06/04/2025 5: 05 AM EDT SEDIMENTATION RATE Urgent 06/04/2025 5: 05 AM EDT RENAL FUNCTION PANEL Urgent 06/04/2025 5:05 AM EDT POCT GLUCOSE FINGERSTICK Routine 025 8:15 PM EDT SCANNED - TELEMETRY 06/03/2025 7 :51 PM EDT POCT GLUCOSE FINGERSTICK Routine 025 4:24 PM EDT POCT GLUCOSE FINGERSTICK Routine 025 11:12 AM EDT SCANNED - TELEMETRY 06/03/2025 8 :28 AM EDT POCT GLUCOSE FINGERSTICK Routine 025 7:24 AM EDT CK Urgent 06/03/2025 5:42 AM EDT PHOSPHORUS Urgent 06/03/2025 5:42 AM EDT MAGNESIUM Urgent 06/03/2025 5:42 AM EDT COMPREHENSIVE METABOLIC PANEL Urgent 06/03/2025 5:42 AM EDT CBC WITH AUTO DIFFERENTIAL Urgent 06/03/2025 5:42 AM EDT POCT GLUCOSE FINGERSTICK Routine 025 8:04 PM EDT SCANNED - TELEMETRY 06/02/2025 7 :59 PM EDT WOUND OSTOMY EVAL AND TREAT Routine 06/02/2025 7:45 PM EDT POCT GLUCOSE FINGERSTICK Routine 025 5:14 PM EDT URINALYSIS, MICROSCOPIC ONLY STAT [...] CULTURE STAT 06/02/2025 11:37 AM EDT COVID-19/FLUA&B/RSV, [employer]CHE[employer]ICIAN SWAB IN TRANSPORT MEDIA 1 HR TAT [...] - TELEMETRY 06/02/2025 9 :44 AM EDT from Last 3 Months Results * (ABNORMAL) POC Glucose Once (08/02/2025 7:46 AM EST) Only the most recent of189 resultswithin the time period is included. Glucose 136(H) 70 - 130 mg/dL 08/02/2025 8:00 AM EST [facility] Comment:Serial Number: [id number] Blood 08/02/2025 7:46 AM EST 08/02/2025 8:00 AM EST us Carolina Sargent II, DO POINT OF CARE TEST ORDERA BLES Final Result [facility]
[address] [place] [address], * CT Head Without Contrast (07/28/2025 7:28 PM EST) Only the most recent of2 resultswithin the time period is included. Anatomical Region Laterality Modality Head N/A Computed Tomogra phy 07/28/2025 7:42 PM EST Impressions 07/28/2025 7:43 PM EST Impression: No acute intracranial pathology. Electronically Signed: Feliciano Garcia MD 07/28/2025 7:43 PM EST Workstation ID: [id number] Narrative 07/28/2025 7:[address] HEAD [...] MD 07/28/2025 7:43 PM EST Workstation ID: [id number] Chinyere Hensley PLATEN DRIER OPERATOR [facility] CT ORDERABLES Final Res ult * (ABNORMAL) Basic Metabolic Panel (07/25/2025 6:17 AM EST) Only the most recent of28 resultswithin the time period is included. Glucose 89 65 - 99 mg/dL 07/25/2025 7:02 AM EST [facility] BUN 27.2(H) 8.0 - 23.0 mg/dL 07/25/2025 7:02 AM EST [facility] Creatinine 1.02 0.76 - 1.27 mg/dL 07/25/2025 7:02 AM EST [facility] Sodium 140 136 - 145 mmol/L 07/25/2025 7:02 AM [facility] Potassium 5.2 3.5 - 5.2 mmol/L 07/25/2025 7:02 AM [facility] Chloride 109(H) 98 - 107 mmol/L 07/25/2025 7:02 AM [facility] CO2 20.4(L) 22.0 - 29.0 mmol/L 07/25/2025 7:02 AM [facility] Calcium 9.1 8.6 - 10.5 mg/dL 07/25/2025 7:02 AM [facility] BUN/Creatinine Ratio 26.7(H) 7.0 - 25.0 07/25/2025 7:02 AM [facility] Anion Gap 10.6 5.0 - 15.0 mmol/L 07/25/2025 7:02 AM [facility] eGFR 78.6 >60.0 mL/min/1.7 3 07/25/2025 7:02 AM [facility] Blood Venipuncture / Unknown 07/25/2025 6:17 AM EST 07/25/2025 6:26 AM EST [facility] - 07/25/2025 7:02 AM EST GFR [...] include race as a factor Osmany Mccann [facility] LAB BLOOD ORDERABLES Final Result [facility]
[address] [place] [address], * ECG 12 Lead Other; hyperkalemia (07/24/2025 10:30 AM EST) Only the most recent of9 resultswithin the time period is included. QT Interval 378 ms ECG QTC Interval 452 ms ECG 07/24/2025 10:3 0 AM EST 07/24/2025 6:30 PM EST Narrative ECG - 07/24/2025 6:30 PM EST Test [...] significant change was found Confirmed by DUGLAS NEGRETE ([id number]) on 07/24/2025 6:30:29 PM Referred By: Confirmed By: DUGLAS NEGRETE Procedure Note Duglas Negrete MD - 07/24/2025 Test Reason : Other~ [...] significant change was found Confirmed by DUGLAS NEGRETE ([id number]) on 07/24/2025 6:30:29 PM Referred By: Confirmed By: DUGLAS NEGRETE us Ana Reynolds DO ECG ORDERABLES Final Result ECG * Vancomycin, Random (07/23/2025 4:42 AM EST) Only the most recent of7 resultswithin the time period is included. Vancomycin Random 11.20 5.00 - 40.00 mcg/mL 07/23/2025 5:37 AM [facility] Blood Venipuncture / Unknown 07/23/2025 4:42 AM EST 07/23/2025 5:03 AM EST [facility] - 07/23/2025 5:37 AM EST Therapeutic Ranges for Vancomycin Vancomycin Random 5.0-40.0 mcg/mL Vancomycin Trough 5.0-20.0 mcg/mL Vancomycin Peak 20.0-40.0 mcg/mL Leonie Esquivel [facility] LAB BLOOD ORDERABLES Final Re sult [facility]
[address] [place] [address], * (ABNORMAL) CBC (No Diff) (07/20/2025 5:08 AM EST) Only the most recent of13 resultswithin the time period is included. WBC 6.74 3.40 - 10.80 10*3/mm3 07/20/2025 6:17 AM [facility] RBC 3.87(L) 4.14 - 5.80 10*6/mm3 07/20/2025 6:17 AM [facility] Hemoglobin 9.6(L) 13.0 - 17.7 g/dL 07/20/2025 6:17 AM [facility] Hematocrit 30.3(L) 37.5 - 51.0 % 07/20/2025 6:17 AM [facility] MCV 78.3(L) 79.0 - 97.0 fL 07/20/2025 6:17 AM [facility] MCH 24.8(L) 26.6 - 33.0 pg 07/20/2025 6:17 AM [facility] MCHC 31.7 31.5 - 35.7 g/dL 07/20/2025 6:17 AM [facility] RDW 18.4(H) 12.3 - 15.4 % 07/20/2025 6:17 AM EST [facility] RDW-SD 51.9 37.0 - 54.0 fl 07/20/2025 6:17 AM EST [facility] MPV 9.5 6.0 - 12.0 fL 07/20/2025 6:17 AM EST [facility] Platelets 228 140 - 450 10*3/mm3 07/20/2025 6:17 AM EST [facility] Blood Venipuncture / Unknown 07/20/2025 5:08 AM EST 07/20/2025 6:10 AM EST Law Castro PharmD LAB BLOOD ORDERABLES Final Re sult [facility]
[address] [place] [address], * Magnesium (07/19/2025 8:35 AM EST) Only the most recent of16 resultswithin the time period is included. Pathologist [facility] Magnesium 1.9 1.6 - 2.4 mg/dL 07/19/2025 9:02 AM EST [facility] Blood Venipuncture / Unknown 07/19/2025 8:35 AM EST 07/19/2025 8:43 AM EST Gigi Alcantara MD LAB BLOOD ORDERABLES Final R esult [facility]
[address] [place] [address], [place] [phone] * (ABNORMAL) Blood Gas, Venous With Co-Ox (07/14/2025 3:17 PM EDT) Only the most recent of2 resultswithin the time period is included. Site Nurse/Dr Draw 07/14/2025 3:27 PM EDT [facility] pH, Venous 7.352 7.310 - 7.410 pH Units 07/14/2025 3:27 PM EDT [facility] pCO2, Venous 39.4(L) 41.0 - 51.0 mm Hg 07/14/2025 3:27 PM EDT [facility] Comment:84 Value below refer ence range pO2, Venous 96.7(H) 27.0 - 53.0 mm Hg 07/14/2025 3:27 PM EDT [facility] Comment:83 Value above refer ence range HCO3, Venous 21.8(L) 22.0 - 28.0 mmol/L 07/14/2025 3:27 PM EDT [facility]ER[facility] Base Excess, Venous -3.5(L) -2.0 - 2.0 mmol/L 07/14/2025 3:27 PM EDT [facility] Hemoglobin, Blood Gas 8.8(L) 13.5 - 17.5 g/dL 07/14/2025 3:27 PM EDT [facility] Oxyhemoglobin Venous 95.8 % 09/2024 3:27 PM EDT [facility] Comment:83 Value above refer ence range Methemoglobin Venous 0.5 % 09/2024 3:27 PM EDT [facility] Carboxyhemoglobin Venous 1.3 % 07/14/2025 3:27 PM EDT [facility] CO2 Content 23.0 22 - 33 mmol/L 07/14/2025 3:27 PM EDT [facility] Temperature 37.0 07/14/2025 3:27 PM EDT [facility] Barometric Pressure for Blood Gas 07/14/2025 3:27 PM EDT [facility] Comment:N/A Modality Room Air 07/14/2025 3:27 PM EDT [facility] FIO2 21 % 07/14/2025 3:27 PM EDT [facility] Rate 0 Breaths/ minute 07/14/2025 3:27 PM EDT [facility] PIP 0 cmH2O 07/14/2025 3:27 PM EDT [facility] Comment:Meter: [id number] Reptile Farmer: [id number] IPAP 0 cm H2O 07/14/2025 3:27 PM EDT [facility] EPAP 0 cm H2O 07/14/2025 3:27 PM EDT [facility] Venous Blood 07/14/2025 3:17 PM EDT 07/14/2025 3:17 PM EDT Gigi Alcantara MD LAB BLOOD ORDERABLES Final R esult Performing Organization Address [facility] de Phone Number [facility]
[address] [place] [address] * Lactic Acid, Plasma (07/14/2025 4:26 AM EDT) Only the most recent of4 resultswithin the time period is included. Lactate 1.0 0.5 - 2.0 mmol/L 07/14/2025 5:26 AM EDT [facility] Comment:Falsely depressed re sults may occur on samples drawn from patients receiving N-Acetylcysteine (NAC) or Metamizole. Blood Venipuncture / Unknown 07/14/2025 4:26 AM EDT 07/14/2025 5:03 AM EDT Kate Sherwood IZABELLA LAB BLOOD ORDERABLES Final Resul t Performing Organization Address [facility] Co de Phone Number [facility]
[address] [place] [address], * (ABNORMAL) Urinalysis, Microscopic Only - Indwelling Urethral Catheter (07/14/2025 12:53 AM EDT) Only the most recent of3 resultswithin the time period is included. RBC, UA 3-5(A) None Seen, 0-2 /HPF 07/14/2025 1:35 AM EDT [facility] WBC, UA Too Numerous to Count(A) None Seen, 0-2 /HPF 07/14/2025 1:35 AM EDT [facility] Bacteria, UA None Seen None Seen /HPF 07/14/2025 1:35 AM EDT [facility] Squamous Epithelial Cells, UA 0-2 None Seen, 0-2 /HPF 07/14/2025 1:35 AM EDT [facility] Hyaline Casts, UA 0-2 None Seen /LPF 07/14/2025 1:35 AM EDT [facility] Methodology Automated Microscopy 07/14/2025 1:35 AM EDT [facility] Urine (Indwelling Urethral Catheter) Collection / Unknown 07/14/2025 12:53 AM EDT 07/14/2025 1:10 AM EDT Kate Sherwood PLATEN DRIER OPERATOR URINE ORDERABLES Final Result [facility]
[address] [place] [address], * (ABNORMAL) Urinalysis With Culture If Indicated - Indwelling Urethral Catheter (07/14/2025 12:53 AMEDT) Only the most recent of3 resultswithin the time period is included. Color, UA Yellow Yellow, Straw 07/14/2025 1:35 AM EDT [facility] Appearance, UA Clear Clear 07/14/2025 1:35 AM EDT [facility] pH, UA 5.5 5.0 - 8.0 07/14/2025 1:35 AM EDT [facility] Specific [place], UA 1.018 1.005 - 1.030 07/14/2025 1:35 AM EDT [facility] Glucose, UA Negative Negative 07/14/2025 1:35 AM EDT [facility] Ketones, UA Negative Negative 07/14/2025 1:35 AM EDT [facility] Bilirubin, UA Negative Negative 07/14/2025 1:35 AM EDT [facility] Blood, UA Trace(A) Negative 07/14/2025 1:35 AM EDT [facility] Protein, UA 30 mg/dL (1+)(A) Negative 07/14/2025 1:35 AM EDT [facility] Leuk Esterase, UA Moderate (2+)(A) Negative 07/14/2025 1:35 AM EDT [facility] Nitrite, UA Negative Negative 07/14/2025 1:35 AM EDT [facility] Urobilinogen, UA 0.2 E.U./dL 0.2 - 1.0 E.U./dL 07/14/2025 1:35 AM EDT [facility] Urine (Indwelling Urethral Catheter) Collection / Unknown 07/14/2025 12:53 AM EDT 07/14/2025 1:10 AM EDT [facility] - 07/14/2025 1:35 AM EDT In absence of clinical symptoms, the presence of pyuria, bacteria, and/or nitrites on the urinalysis result does not correlate with infection. Kate Sherwood IZABELLA URINE ORDERABLES Final Result [facility]
[address] [place] [address], * (ABNORMAL) Urine Culture - Urine, Indwelling Urethral Catheter (07/14/2025 12:53 AM EDT) Only the most recent of3 resultswithin the time period is included. Urine Culture Yeast isolated(A ) MURRAY 07/15/2025 1:29 PM EST [facility] Urine (Indwelling Urethral Catheter) Collection / Unknown 07/14/2025 12:53 AM EDT 07/14/2025 1:10 AM EDT [facility] - 07/15/2025 1:29 PM EST No further workup for yeast Colonization of the urinary tract without infection is common. Treatment is discouraged unless the patient is symptomatic, , or undergoing an invasive urologic procedure. Kaet Sherwood APRN MICROBIOLOGY - GENERAL ORDERABLE S Final Result [facility]
[address] [place] [address], [place] [phone] * Potassium (07/13/2025 6:48 PM EDT) Only the most recent of3 resultswithin the time period is included. Pathologist [facility] Potassium 5.1 3.5 - 5.2 mmol/L 07/13/2025 7:55 PM EDT [facility] Blood Venipuncture / Unknown 07/13/2025 6:48 PM EDT 07/13/2025 7:26 PM EDT Gill Lechuga [facility] LAB BLOOD ORDERABLES Final R esult Performing Organization Address City/[facility]/ZIP Co de Phone Number [facility]
[address] [place] [address], [place] [phone] * Telemetry Scan (07/11/2025 9:50 PM EDT) Only the most recent of19 resultswithin the time period is included. [facility] ECG ORDERABLES Final Result * (ABNORMAL) Vancomycin, Trough (07/09/2025 7:12 AM EDT) Vancomycin Trough 31.40(HH) 5.00 - 20.00 mcg/mL 07/09/2025 8:03 AM EDT [facility] Blood Venipuncture / Unknown 07/09/2025 7:12 AM EDT 07/09/2025 7:27 AM EDT Narrative [facility] - 07/09/2025 8:03 AM EDT Therapeutic Ranges for Vancomycin Vancomycin Random 5.0-40.0 mcg/mL Vancomycin Trough 5.0-20.0 mcg/mL Vancomycin Peak 20.0-40.0 mcg/mL Law Castro PharmD LAB BLOOD ORDERABLES Final Re sult [facility]
[address] [id number], * EEG AWAKE OR DROWSY PORTABLE (07/04/2025 7:10 AM EDT) Impressions NEUROLOGY - 07/04/2025 8:24 AM EDT Diffuse cerebral dysfunction of mild degree, nonspecific but most commonly seen due to toxic/metabolic cause Left arm tremoring is nonepileptic This report is transcribed using the BIMA dictation system. Narrative NEUROLOGY - 07/04/2025 8:24 [...] [place] DO NEUROLOGY ORDERABLES Final Resul t Performing Organization Address [facility]/ZIP Co de Phone Number NEUROLOGY * (ABNORMAL) CBC Auto Differential (07/04/2025 3:47 AM EDT) Only the most recent of11 resultswithin the time period is included. [facility] WBC 8.21 3.40 - 10.80 10*3/mm3 07/04/2025 4:15 AM EDT [facility] RBC 4.03(L) 4.14 - 5.80 10*6/mm3 07/04/2025 4:15 AM EDT [facility] Hemoglobin 9.3(L) 13.0 - 17.7 g/dL 07/04/2025 4:15 AM EDT [facility] Hematocrit 31.1(L) 37.5 - 51.0 % 07/04/2025 4:15 AM EDT [facility] MCV 77.2(L) 79.0 - 97.0 fL 07/04/2025 [facility] MCH 23.1(L) 26.6 - 33.0 pg 07/04/2025 4:[facility] MCHC 29.9(L) 31.5 - 35.7 g/dL 07/04/2025 4:[facility] RDW 17.5(H) 12.3 - 15.4 % 07/04/2025 4:15 AM [facility] RDW-SD 48.1 37.0 - 54.0 fl 07/04/2025 4:15 AM [facility] MPV 9.3 6.0 - 12.0 fL 07/04/2025 4:15 AM EDT [facility] Platelets 264 140 - 450 10*3/mm3 07/04/2025 4:15 AM EDT [facility] Neutrophil % 71.4 42.7 - 76.0 % 07/04/2025 4:15 AM EDT [facility] Lymphocyte % 18.6(L) 19.6 - 45.3 % 07/04/2025 4:[facility] Monocyte % 8.5 5.0 - 12.0 % 07/04/2025 4:15 AM EDT [facility] Eosinophil % 0.5 0.3 - 6.2 % 07/04/2025 4:15 AM EDT [facility] Basophil % 0.4 0.0 - 1.5 % 07/04/2025 4:15 AM EDT [facility] Immature Grans % 0.6(H) 0.0 - 0.5 % 07/04/2025 4:15 AM EDT [facility] Neutrophils, Absolute 5.86 1.70 - 7.00 10*3/mm3 07/04/2025 4:15 AM EDT [facility] Lymphocytes, Absolute 1.53 0.70 - 3.10 10*3/mm3 07/04/2025 4:15 AM EDT [facility] Monocytes, Absolute 0.70 0.10 - 0.90 10*3/mm3 07/04/2025 4:15 AM EDT [facility] Eosinophils, Absolute 0.04 0.00 - 0.40 10*3/mm3 07/04/2025 4:15 AM EDT [facility] Basophils, Absolute 0.03 0.00 - 0.20 10*3/mm3 07/04/2025 4:15 AM EDT [facility] Immature Grans, Absolute 0.05 0.00 - 0.05 10*3/mm3 07/04/2025 4:15 AM EDT [facility] nRBC 0.0 0.0 - 0.2 /100 WBC 07/04/2025 4:15 AM EDT [facility] Blood Venipuncture / Unknown 07/04/2025 3:47 AM EDT 07/04/2025 4:10 AM EDT us Francisca Franco MD LAB BLOOD ORDERABLES Final Resul t [facility]
[address] [place] [address], * (ABNORMAL) Blood Gas, Arterial With Co-Ox (07/03/2025 7:00 PM EDT) Site Right Radial 07/03/2025 7:00 PM EDT [facility] Jaspreet's Test Positive 07/03/2025 7:00 PM EDT [facility] pH, Arterial 7.362 7.350 - 7.450 pH units 07/03/2025 7:00 PM EDT [facility] pCO2, Arterial 41.7 35.0 - 45.0 mm Hg 07/03/2025 7:00 PM EDT [facility] pO2, Arterial 172.0(H) 83.0 - 108.0 mm Hg 07/03/2025 7:00 PM EDT [facility] HCO3, Arterial 23.6 20.0 - 26.0 mmol/L 07/03/2025 7:00 PM EDT [facility] Base Excess, Arterial -1.7(L) 0.0 - 2.0 mmol/L 07/03/2025 7:00 PM EDT [facility] Hemoglobin, Blood Gas 9.9(L) 13.5 - 17.5 g/dL 07/03/2025 7:00 PM EDT [facility] Comment:84 Value below refer ence range Hematocrit, Blood Gas 30.3(L) 38.0 - 51.0 % 07/03/2025 7:00 PM EDT [facility] Oxyhemoglobin 98.5 94 - 99 % 07/03/2025 7:00 PM EDT [facility] Methemoglobin 0.40 0.00 - 1.50 % 07/03/2025 7:00 PM EDT [facility] Carboxyhemoglobin 1.1 0 - 2 % 025 7:00 PM EDT [facility] CO2 Content 24.9 22 - 33 mmol/L 07/03/2025 7:00 PM EDT [facility] Temperature 37.0 07/03/2025 7:00 PM EDT [facility] Barometric Pressure for Blood Gas 07/03/2025 7:00 PM EDT [facility] Comment:N/A Modality Aerosol Mask 07/03/2025 7:00 PM EDT [facility] FIO2 60 % 07/03/2025 7:00 PM EDT [facility] Rate 0 Breaths/ minute 07/03/2025 7:00 PM EDT [facility] PIP 0 cmH2O 07/03/2025 7:00 PM EDT [facility] Comment:Meter: [id number] Reptile Farmer: [id number] IPAP 0 07/03/2025 7:00 PM EDT [facility] EPAP 0 07/03/2025 7:00 PM EDT [facility] pH, Temp Corrected 7.362 pH Units 2024 7:00 PM EDT [facility] pCO2, Temperature Corrected 41.7 35 - 48 mm Hg 07/03/2025 7:00 PM EDT [facility] pO2, Temperature Corrected 172(H) 83 - 108 mm Hg 07/03/2025 7:00 PM EDT [facility] Arterial Blood 07/03/2025 7: 00 PM EDT 07/03/2025 7:00 PM EDT us Kris Boston DO LAB BLOOD ORDERABLES Final Resul t [facility]
[address] [place] [address], [place] * XR [place] Procedure (07/03/2025 3:44 PM EDT) us Vaughn Hollingsworth DO IMG DIAGNOSTIC IMAGING ORDERABLE S Final Result * BH AN ETT AIRWAY (07/03/2025 2:35 PM EDT) Narrative Rocio Anderson CRNA - 07/03/2025 2:35 PM EDT Rocio Anderson CRNA 07/03/2025 2:36 PM Airway Reason: elective Date/Time: 07/03/2025 2:28 PM Airway not difficult General Information and Staff Patient location during procedure: OR RECREATIONAL RESORT MANAGER/CAA: Rocio Anderson CRNA Indications and Patient Condition [...] symmetric chest rise and fall Rocio Anderson CRNA ANESTHESIA ORDERABLES Final Re sult * MRI Foot Left Without Contrast (06/26/2025 [...] MD 06/26/2025 10:08 PM EDT Workstation ID: [id number] Narrative 06/26/2025 10:08 PM EDT MRI FOOT [...] MD 06/26/2025 10:08 PM EDT Workstation ID: [id number] us Amanda Bermudez MD IMG MRI ORDERABLES Final Resu lt * DUPLEX LOWER EXTREMITY ART/GRAFTS LEFT CAR - COR/EVANGELISTA/MAD (06/26/2025 9:36 AM EDT) SFA Prox PSV-Left 78.5 cm/s SFA Mid PSV-Left 285.6 cm/s SFA Distal PSV-Left 169.9 cm/s Popiteal A Prox PSV-Left 97.2 cm/s Popiteal A Distal PSV-Left 119.6 cm/s Ant Tibial A Distal PSV-Left 94.0 cm/s CANDY ROLLER Distal PSV-Left 86.4 cm/s Left groin CERTIFIED PUBLIC ACCOUNTANT sys 112.2 cm/sec CERT[employer]IED PUBLIC ACCOUNTANT Prox PSV-Left 112.20 cm/s DFA Prox PSV-Left [...] findings: The EIA is not visualized. The CERTIFIED PUBLIC ACCOUNTANT is monophasic suggestive of inflow disease. The DFA is monophasic. The SFA is patent with diffuse plaque noted throughout, multiple lesions are suspected throughout the SFA due to elevated velocities and plaque formation. The popliteal artery is monophasic. The CANDY ROLLER is not visualized in the proximal and mid calf. The distal CANDY ROLLER is heavily calcified with monophasic flow. The [...] The study is technically adequate for diagnosis. Amanda Bermudez MD CV VASCULAR ORDERABLES Final Result * TSH Rfx On Abnormal To Free T4 (06/26/2025 7:41 AM EDT) TSH 0.340 0.270 - 4.200 uIU/mL 06/26/2025 9:47 AM EDT [facility] Blood Venipuncture / Unknown 06/26/2025 7:41 AM EDT 06/26/2025 9:12 AM EDT Amanda Bermudez MD LAB BLOOD ORDERABLES Final Re sult [facility]
[address] [place] [address], * (ABNORMAL) Iron Profile w/o Ferritin (06/26/2025 7:41 AM EDT) Iron 14(L) 59 - 158 mcg/dL 06/26/2025 9:47 AM EDT [facility] Iron Saturation (TSAT) 5(L) 20 - 50 % 06/26/2025 9:47 AM EDT [facility] Transferrin 172(L) 200 - 360 mg/dL 06/26/2025 9:47 AM EDT [facility] TIBC 256(L) 298 - 536 mcg/dL 06/26/2025 9:47 AM EDT [facility] Blood Venipuncture / Unknown 06/26/2025 7:41 AM EDT 06/26/2025 9:12 AM EDT Amanda Bermudez MD LAB BLOOD ORDERABLES Final Re sult Performing Organization Address [facility] Co de Phone Number [facility]
[address] [place] [address], [place] [phone] * (ABNORMAL) Protime-INR (06/26/2025 7:41 AM EDT) Protime 16.7(H) 12.2 - 15.3 Seconds 06/26/2025 9:31 AM EDT [facility] INR 1.27(H) 0.89 - 1.12 06/26/2025 9:31 AM EDT [facility] Blood Venipuncture / Unknown 06/26/2025 7:41 AM EDT 06/26/2025 9:12 AM EDT Amanda Bermudez MD LAB BLOOD ORDERABLES Final Re sult Performing Organization Address [facility]/ZIP Co de Phone Number [facility]
[address] [place] [address], [place] [phone] * Type & Screen (06/26/2025 7:41 AM EDT) ABO Type B 06/26/2025 10:07 AM EDT [facility] RH type Positive 06/26/2025 10:07 AM EDT [facility] Antibody Screen Negative 06/26/2025 10:07 AM EDT [facility] T&S Expiration Date 06/29/2025 11:59:59 PM 06/26/2025 10:07 AM EDT [facility] Blood Venipuncture / Unknown 06/26/2025 7:41 AM EDT 06/26/2025 9:19 AM EDT Amanda Bermudez MD BLOOD BANK TEST ORDERABLES Ed ited Result - Final Performing Organization Address [facility]/ZIP Co de Phone Number [facility]
[address] [place] [address], * Phosphorus (06/26/2025 7:41 AM EDT) Only the most recent of2 resultswithin the time period is included. Phosphorus 2.9 2.5 - 4.5 mg/dL 06/26/2025 9:47 AM EDT [facility] Blood Venipuncture / Unknown 06/26/2025 7:41 AM EDT 06/26/2025 9:12 AM EDT Amanda Bermudez MD LAB BLOOD ORDERABLES Final Re sult Performing Organization Address City/[facility]/ZIP Co de Phone Number [facility]
[address] [place] [address], * (ABNORMAL) Hemoglobin A1c (06/26/2025 7:41 AM EDT) Hemoglobin A1C 7.82(H) 4.80 - 5.60 % 06/26/2025 9:46 AM EDT [facility] Blood Venipuncture / Unknown 06/26/2025 7:41 AM EDT 06/26/2025 9:12 AM EDT Narrative [facility] - 06/26/2025 9:46 AM EDT Hemoglobin A1C Ranges: Increased Risk for Diabetes 5.7% to 6.4% Diabetes >= 6.5% Diabetic Goal < 7.0% Amanda Bermudez MD LAB BLOOD ORDERABLES Final Re sult [facility]
[address] [place] [address], [place] [phone] * Ferritin (06/26/2025 7:41 AM EDT) Ferritin 108.00 30.00 - 400.00 ng/mL 06/26/2025 9:47 AM EDT [facility] Blood Venipuncture / Unknown 06/26/2025 7:41 AM EDT 06/26/2025 9:12 AM EDT [facility] - 06/26/2025 9:47 AM EDT Results may be falsely decreased if patient taking Biotin. Amanda Bermudez MD LAB BLOOD ORDERABLES Final Re sult Performing Organization Address [facility]/ZIP Co de Phone Number [facility]
[address] [place] [address], [place] [phone] * Vitamin B12 (06/26/2025 7:41 AM EDT) Pathologist [facility] Vitamin B-12 922 211 - 946 pg/mL 06/26/2025 12:57 PM EDT [facility] Blood Venipuncture / Unknown 06/26/2025 7:41 AM EDT 06/26/2025 9:12 AM EDT [facility] - 06/26/2025 12:57 PM EDT Results may be falsely increased if patient taking Biotin. Amanda Bermudez MD LAB BLOOD ORDERABLES Final Re sult [facility]
[address] [place] [address], [place] [phone] * CK (06/26/2025 7:41 AM EDT) Only the most recent of2 resultswithin the time period is included. Creatine Kinase 59 20 - 200 U/L 06/26/2025 9:47 AM EDT [facility] Blood Venipuncture / Unknown 06/26/2025 7:41 AM EDT 06/26/2025 9:12 AM EDT us Amanda Bermudez MD LAB BLOOD ORDERABLES Final Re sult [facility]
[address] [place] [address], * (ABNORMAL) Lipid Panel (06/26/2025 7:41 AM EDT) Total Cholesterol 154 0 - 200 mg/dL 06/26/2025 9:47 AM EDT [facility] Triglycerides 131 0 - 150 mg/dL 06/26/2025 9:47 AM EDT [facility] HDL Cholesterol 27(L) 40 - 60 mg/dL 06/26/2025 9:47 AM EDT [facility] LDL Cholesterol 103(H) 0 - 100 mg/dL 06/26/2025 9:47 AM EDT [facility] VLDL Cholesterol 24 5 - 40 mg/dL 06/26/2025 9:47 AM EDT [facility] LDL/HDL Ratio 3.73 06/26/2025 9:47 AM EDT [facility] Blood Venipuncture / Unknown 06/26/2025 7:41 AM EDT 06/26/2025 9:12 AM EDT [facility] - 06/26/2025 9:47 AM EDT [...] MD LAB BLOOD ORDERABLES Final Re sult [facility]
[address] [place] [address], * (ABNORMAL) Comprehensive Metabolic Panel (06/26/2025 7:41 AM EDT) Only the most recent of4 resultswithin the time period is included. Glucose 134(H) 65 - 99 mg/dL 06/26/2025 9:47 AM EDT [facility] BUN 19.1 8.0 - 23.0 mg/dL 06/26/2025 9:47 AM EDT [facility] Creatinine 0.88 0.76 - 1.27 mg/dL 06/26/2025 9:47 AM EDT [facility] Sodium 142 136 - 145 mmol/L 06/26/2025 9:47 AM EDT [facility] Potassium 3.7 3.5 - 5.2 mmol/L 06/26/2025 9:47 AM EDT [facility] Chloride 112(H) 98 - 107 mmol/L 06/26/2025 9:47 AM EDT [facility] CO2 21.4(L) 22.0 - 29.0 mmol/L 06/26/2025 9:47 AM EDT [facility] Calcium 8.3(L) 8.6 - 10.5 mg/dL 06/26/2025 9:47 AM [facility] Total Protein 7.1 6.0 - 8.5 g/dL 06/26/2025 9:47 AM [facility] Albumin 3.0(L) 3.5 - 5.2 g/dL 06/26/2025 9:47 AM [facility] ALT (SGPT) 13 1 - 41 U/L 06/26/2025 9:47 AM [facility] AST (SGOT) 15 1 - 40 U/L 06/26/2025 9:47 AM [facility] Alkaline Phosphatase 116 39 - 117 U/L 06/26/2025 9:47 AM [facility] Total Bilirubin 0.2 0.0 - 1.2 mg/dL 06/26/2025 9:47 AM [facility] Globulin 4.1 gm/dL 06/26/2025 9:47 AM [facility] Comment:Calculated Result A/G Ratio 0.7 g/dL 06/26/2025 9:47 AM [facility] BUN/Creatinine Ratio 21.7 7.0 - 25.0 06/26/2025 9:47 AM [facility] Anion Gap 8.6 5.0 - 15.0 mmol/L 06/26/2025 9:47 AM [facility] eGFR 91.9 >60.0 mL/min/1.7 3 06/26/2025 9:47 AM [facility] Blood Venipuncture / Unknown 06/26/2025 7:41 AM EDT 06/26/2025 9:12 AM [facility] - 06/26/2025 9:47 AM EDT GFR [...] MD LAB BLOOD ORDERABLES Final Re sult [facility]
[address] [id number], * CT Angiogram Lower Extremity Left (06/26/2025 [...] the posterior tibial artery. 2.Status post right bmalp-vpq-hhhw amputation. There is occlusion of the proximal right PFA with reconstitution. 3.Severe diffuse atrophy in the left lower extremity musculature. 4.Moderate sized fat and sigmoid colon containing left inguinal hernia and small fat-containing right inguinal hernia. 5.Marked urinary bladder wall thickening. Correlate for cystitis. Electronically Signed: Hussain Lyles MD 06/26/2025 5:08 AM EDT Workstation ID: [id number] Narrative 06/26/2025 5:[address] ANGIOGRAM [...] Right lower extremity: Patient is status post cngmv-mot-joxm amputation. There is mild disease in the C[employer]IFIED PUBLIC ACCOUNTANT and SFA. The PFA is occluded proximally with reconstitution. There is moderate segmental stenosing disease in the remainder of the SFA. 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 PFA is patent. There is mild SFA disease with moderate focal narrowing at the junction of the SFA and popliteal artery. The gsiug-ygh-qoyb popliteal artery appears otherwise widely patent. There [...] Right lower extremity: Patient is status post mymsb-rno-jfrl amputation.There is mild disease in the C[employer]IED PUBLIC ACCOUNTANT and SFA. The PFA is occluded proximallywith reconstitution. There is moderate segmental stenosing disease in theremainder of the SFA. 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 PFA is patent. There is mildSFA disease with moderate focal narrowing at the junction of the SFA andpopliteal artery. The vlloo-anj-zdpv popliteal artery appears otherwisewidely patent. There is [...] in the posteriortibial artery. 2.Status post right ualnw-pjp-aiby amputation. There is occlusion of theproximal right PFA with reconstitution. 3.Severe diffuse atrophy in the left lower extremity musculature. 4.Moderate sized fat and sigmoid colon containing left inguinal hernia andsmall fat-containing right inguinal hernia. 5.Marked urinary bladder wall thickening. Correlate for cystitis. Electronically Signed: Hussain Lyles MD 06/26/2025 5:08 AM EDT Workstation ID: [id number] Amanda Bermudez MD IMG CT ORDERABLES Final Resul t * XR Chest 1 View (06/26/2025 4:09 AM EDT) Only the most recent of2 resultswithin the time period is included. Anatomical Region Laterality Modality Body N/A Radiographic Martha ging 06/26/2025 4:12 AM EDT Impressions 06/26/2025 4:13 AM EDT Cardiomegaly with possible mild right basilar atelectasis. Electronically Signed: Brent Lubin MD 06/26/2025 4:13 AM EDT Workstation ID: [id number] Narrative 06/26/2025 4:13 AM EDT XR CHEST [...] MD 06/26/2025 4:13 AM EDT Workstation ID: [id number] Amanda Bermudez MD [facility] DIAGNOSTIC IMAGING ORDERA BLES Final Result * (ABNORMAL) Gastrointestinal Panel, PCR - Stool, Per Rectum (06/26/2025 12:46 AM EDT) Campylobacter Not Detected Not Detected BIOFIRE TORCH 06/26/2025 8:50 AM EDT [facility] Plesiomonas shigelloides Not Detected Not Detected BIOFIRE [facility] 06/26/2025 8:50 AM EDT [facility] Salmonella Not Detected Not Detected BIOFIRE TOR 06/26/2025 8:50 AM EDT [facility] Vibrio Not Detected Not Detected BIOFIRE [facility] 06/26/2025 8:50 AM EDT [facility] Vibrio cholerae Not Detected Not Detected BIOFIRE [facility] 06/26/2025 8:50 AM EDT [facility] Yersinia enterocolitica Not Detected Not Detected BIOFIRE [facility] 06/26/2025 8:50 AM EDT [facility] Enteroaggregative E. coli (EAEC) Not Detected Not Detected BIOFIRE [facility] 06/26/2025 8:50 AM EDT [facility] Enteropathogenic E. coli (EPEC) Not Detected Not Detected BIOFIRE [facility] 06/26/2025 8:50 AM EDT [facility] Enterotoxigenic E. coli (ETEC) lt/st Not Detected Not Detected BIOFIRE [facility] 06/26/2025 8:50 AM EDT [facility] Shiga-like toxin-producing E. coli (STEC) stx1/stx2 Not Detected Not Detected BIOFIRE [facility] 06/26/2025 8:50 AM EDT [facility] Shigella/Enteroinv asive E. coli (EIEC) Not Detected Not Detected BIOFIRE [facility] 06/26/2025 8:50 AM EDT [facility] Cryptosporidium Not Detected Not Detected BIOFIRE [facility] 06/26/2025 8:50 AM EDT [facility] Cyclospora cayetanensis Not Detected Not Detected BIOFIRE [facility] 06/26/2025 8:50 AM EDT [facility] Entamoeba histolytica Not Detected Not Detected BIOFIRE [facility] 06/26/2025 8:50 AM EDT [facility] Giardia lamblia Not Detected Not Detected BIOFIRE [facility] 06/26/2025 8:50 AM EDT [facility] Adenovirus F40/41 Not Detected Not Detected BIOFIRE TORCH 06/26/2025 8:50 AM EDT [facility] Astrovirus Not Detected Not Detected BIOFIRE TOR 06/26/2025 8:50 AM EDT [facility] Norovirus GI/GII Detected(A) Not Detected BIOFIRE TOR 06/26/2025 8:50 AM EDT [facility] Comment:If a positive Norovi tramaine result is inconsistent with clinical presentation, the positive Norovirus result should be confirmed using another method. Rotavirus A Not Detected Not Detected BIOFIRE TOR 06/26/2025 8:50 AM EDT [facility] Sapovirus (I, II, IV or V) Not Detected Not Detected BIOFIRE TOR 06/26/2025 8:50 AM EDT [facility] Stool Specimen from rectum / Unknown Collection / Unknown 06/26/2025 12:46 AM EDT 06/26/2025 1:08 AM EDT us Ally Jeffers V, [employer]AT[employer] DRIER OPERATOR MICROBIOLOGY - GENERAL ORDER SEB Final Result [facility]
[address] [place] [address], * Clostridioides difficile toxin Ag, Reflex - Stool, Per Rectum (06/26/2025 12:46 AM EDT) C.diff Toxin Ag Negative Negative DISK DIFFUSION 06/26/2025 8:36 AM EDT [facility] Stool Specimen from rectum / Unknown Collection / Unknown 06/26/2025 12:46 AM EDT 06/26/2025 1:08 AM EDT Narrative [facility] - 06/26/2025 8:36 AM EDT DNA from a toxigenic strain of C.difficile was detected, although the free toxin itself was not detected. These findings are consistent with C.difficile colonization and may not reflect actual C.difficile infection. Clinical correlation needed. Ally Pryor APRN MICROBIOLOGY - GENERAL ORDER SEB Final Result Performing Organization Address City/[facility]/ZIP Co de Phone Number [facility]
[address] [place] [address], * (ABNORMAL) MRSA Screen, PCR (Inpatient) - Swab, Nares (06/26/2025 12:46 AM EDT) [facility] MRSA PCR Positive(A ) Negative CEPHEID GENEXPERT 06/26/2025 8:50 AM EDT [facility] Swab Structure of anterior naris / Unknown Collection / Unknown 06/26/2025 12:46 AM EDT 06/26/2025 5:37 AM EDT [facility] - 06/26/2025 8:50 AM EDT The negative predictive value of this diagnostic test is high and should only be used to consider de-escalating anti-MRSA therapy. A positive result may indicate colonization with MRSA and must be correlated clinically. Amanda Bermudez MD MICROBIOLOGY - GENERAL ORDERA BLES Final Result Performing Organization Address City/[facility] Co de Phone Number [facility]
[address] [place] [address], * (ABNORMAL) Clostridioides difficile Toxin, PCR - Stool, Per Rectum (06/26/2025 12:46 AM EDT) [facility] Toxigenic C. difficile by PCR Detected( A) Not Detected CEPHEID GENEXPERT 06/26/2025 7:55 AM EDT [facility] Stool Specimen from rectum / Unknown Collection / Unknown 06/26/2025 12:46 AM EDT 06/26/2025 1:08 AM EDT [facility] - 06/26/2025 7:55 AM EDT DNA from a toxigenic strain of C.difficile has been detected. Ally Pryor APRN MICROBIOLOGY - GENERAL ORDER SEB Final Result [facility]
[address] [place] [address], * (ABNORMAL) Blood Culture ID, PCR - Blood, Hand, Right (06/25/2025 8:30 PM EDT) Pathologist [facility] BCID, PCR Enterococcus faecium. Zee/B (vancomycin resistance gene) not detected. Identification by BCID2 PCR.(A) Negative by BCID PCR. Culture to Follow. BIOFIRE FILMARRAY 06/26/2025 9:02 PM EDT [facility] BOTTLE TYPE Anaerobic Bottle BIOFIRE TORCH 06/26/2025 9:02 PM EDT [facility] Blood Structure of right hand / Unknown Venipuncture / Unknown 06/25/2025 8:30 PM EDT 06/26/2025 3:22 AM EDT Narrative [facility] - 06/26/2025 9:02 PM EDT Infectious disease consultation is highly recommended to rule out distant foci of infection. Ally Pryor APRN MICROBIOLOGY - GENERAL ORDER SEB Final Result Performing Organization Address City/[facility]/ZIP Co de Phone Number [facility]
[address] [place] [address], * (ABNORMAL) Blood Culture - Blood, Hand, Right (06/25/2025 8:30 PM EDT) Only the most recent of4 resultswithin the time period is included. Pathologist [facility] Blood Culture Enterococcus faecium(AA) MURRAY 06/29/2025 7:13 AM EDT [facility] Comment: Infectious disease consultation is highly recommended. Isolated from Anaerobic Bottle 06/29/2025 7:13 AM EDT [facility] Gram Stain Anaerobic Bottle Gram positive cocci in chains(AA) 06/29/2025 7:13 AM EDT [facility] Blood Structure of right hand / Unknown Venipuncture / Unknown 06/25/2025 8:30 PM EDT 06/26/2025 3:22 AM EDT Narrative [facility] - 06/29/2025 7:13 AM EDT Less [...] Enterococcus faecium Vancomycin MURRAY <=0.5 ug/ml: Susceptible us Ally Pryor APRN MICROBIOLOGY - GENERAL ORDER SEB Edited Result - Final [facility]
[address] [place] [address], [place] [phone] [facility]
[address] [place] [address], [place] [phone] * CT Abdomen Pelvis With Contrast (06/25/2025 7:36 PM EDT) Only the most recent of2 resultswithin the time period is included. Anatomical Region Laterality Modality Abdomen, Pelvis N/A [...] Ferraro 06/25/2025 9:53 PM EDT Workstation ID: [id number] ORIGINAL REPORT: CT ABDOMEN PELVIS W CONTRAST [...] Ferraro 06/25/2025 7:55 PM EDT Workstation ID: [id number] Impressions 06/25/2025 7:55 PM EDT Impression: 1.De [...] Ferraro 06/25/2025 7:55 PM EDT Workstation ID: [id number] Narrative 06/25/2025 7:[address] ABDOMEN [...] Ferraro 06/25/2025 7:55 PM EDT Workstation ID: [id number] Ally Pryor APRN IMG CT ORDERABLES Edited Res ult - [...] MD 06/25/2025 7:03 PM EDT Workstation ID: [id number] Narrative 06/25/2025 7:03 PM EDT XR FOOT [...] osteomyelitis MRI is recommended. Electronically Signed: Duglas Lya MD 06/25/2025 7:03 PM EDT Workstation ID: [id number] Ally Pryor APRN IMG DIAGNOSTIC IMAGING ORDER SEB Final Result * (ABNORMAL) Wound Culture - Swab, Foot, Left (06/25/2025 6:18 PM EDT) Only the most recent of2 resultswithin the time period is included. Wound Culture Heavy growth (4+) Staphylococcus aureus, MRSA(A) MURRAY 06/29/2025 6:45 AM EDT [facility] Comment: Methicillin resistant Staphylococcus aureus, Patient may be an isolation risk. Wound Culture Moderate growth (3+) Morganella morganii ssp morganii(A) MURRAY 06/29/2025 6:45 AM EDT [facility] Wound Culture Moderate growth (3+) Proteus mirabilis ESBL(A) MURRAY 06/29/2025 6:45 AM EDT [facility] Comment: Consider infectious disease consult. Susceptibility results may not correlate to clinical outcomes. Gram Stain Few (2+) WBCs seen 06/29/2025 6:45 AM EDT [facility] Gram Stain Few (2+) Gram positive cocci in pairs, chains and clusters 06/29/2025 6:45 AM EDT [facility] Gram Stain Few (2+) Gram negative bacilli 06/29/2025 6:45 AM EDT [facility] Swab Structure of left foot / [...] MICROBIOLOGY - GENERAL ORDER SEB Final Result [facility]
[address] [place] [address], [place] [phone] [facility]
[address] [place] [address], [place] [phone] * Procalcitonin (06/25/2025 6:17 PM EDT) Only the most recent of2 resultswithin the time period is included. Procalcitonin 0.12 0.00 - 0.25 ng/mL 06/25/2025 7:03 PM EDT [facility] Blood Venipuncture / Unknown 06/25/2025 6:17 PM EDT 06/25/2025 6:30 PM EDT Narrative [facility] - 06/25/2025 7:03 PM EDT As [...] Day 4 values are available. Refer to http://www.qcnjec-dpe-buxpkcyskh.com Change in PCT <=80% A decrease of [...] diagnosed with severe sepsis or septic shock. Ally Pryor APRN LAB BLOOD ORDERABLES Final R [employer] [facility] [place] [address], * (ABNORMAL) C-reactive Protein (06/25/2025 6:17 PM EDT) Only the most recent of2 resultswithin the time period is included. [facility] C-Reactive Protein 4.34(H) 0.00 - 0.50 mg/dL 06/25/2025 7:03 PM EDT [facility] Blood Venipuncture / Unknown 06/25/2025 6:17 PM EDT 06/25/2025 6:30 PM EDT Ally Pryor APRN LAB BLOOD ORDERABLES Final R esult [facility]
[address] [place] [address], * (ABNORMAL) Sedimentation Rate (06/04/2025 5:05 AM EDT) Sed Rate 127(H) 0 - 20 mm/hr 06/04/2025 6:04 AM EDT [facility] Blood Venipuncture / Unknown 06/04/2025 5:05 AM EDT 06/04/2025 5:26 AM EDT Burke Vogel MD LAB BLOOD ORDERABLES Final Resul t Performing Organization Address [facility] Co de Phone Number [facility]
[address] [place] [address], * (ABNORMAL) Renal Function Panel (06/04/2025 5:05 AM EDT) Glucose 79 65 - 99 mg/dL 06/04/2025 6:06 AM EDT [facility] BUN 21.8 8.0 - 23.0 mg/dL 06/04/2025 6:06 AM EDT [facility] Creatinine 1.01 0.76 - 1.27 mg/dL 06/04/2025 6:06 AM EDT [facility] Sodium 137 136 - 145 mmol/L 06/04/2025 6:06 AM EDT [facility] Potassium 4.4 3.5 - 5.2 mmol/L 06/04/2025 6:06 AM EDT [facility] Chloride 108(H) 98 - 107 mmol/L 06/04/2025 6:06 AM EDT [facility] CO2 19.4(L) 22.0 - 29.0 mmol/L 06/04/2025 6:06 AM EDT [facility] Calcium 8.3(L) 8.6 - 10.5 mg/dL 06/04/2025 6:06 AM EDT [facility] Albumin 2.9(L) 3.5 - 5.2 g/dL 06/04/2025 6:06 AM EDT [facility] Phosphorus 3.3 2.5 - 4.5 mg/dL 06/04/2025 6:06 AM EDT [facility] Anion Gap 9.6 5.0 - 15.0 mmol/L 06/04/2025 6:06 AM EDT [facility] BUN/Creatinine Ratio 21.6 7.0 - 25.0 06/04/2025 6:06 AM EDT [facility] eGFR 79.5 >60.0 mL/min/1.7 3 06/04/2025 6:06 AM EDT [facility] Blood Venipuncture / Unknown 06/04/2025 5:05 AM EDT 06/04/2025 5:26 AM EDT [facility] - 06/04/2025 6:06 AM [...] DO LAB BLOOD ORDERABLES F inal Result [facility]
[address] [place] [address], * POC Creatinine (06/02/2025 11:45 AM EDT) Only the most recent of2 resultswithin the time period is included. Creatinine 1.10 0.60 - 1.30 mg/dL [facility] Blood 06/02/2025 11:4 5 AM EDT Pasha Miller MD POINT OF CARE TEST ORDERABLES Final Result [facility]
[address] [place] [address], * COVID-19, FLU A/B, RSV PCR 1 HR TAT - Swab, Nasopharynx (06/02/2025 11:25 AM EDT) COVID19 Not Detected Not Detected - Ref. Range CEPHEID GENEXPERT 06/02/2025 12:39 PM EDT [facility] Influenza A PCR Not Detected Not Detected CEPHEID GENEXPERT 06/02/2025 12:39 PM EDT [facility] Influenza B PCR Not Detected Not Detected CEPHEID GENEXPERT 06/02/2025 12:39 PM EDT [facility] RSV, PCR Not Detected Not Detected CEPHEID GENEXPERT 06/02/2025 12:39 PM EDT [facility] Swab Nasopharyngeal structure / Unknown Collection / Unknown 06/02/2025 11:25 AM EDT 06/02/2025 11:39 AM EDT Pasha Miller MD MICROBIOLOGY - GENERAL ORDERAB LES Final Result [facility]
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 [employer] RECORDS - SCAN 07/19/2025 1:16 AM [facility] LIVING WILL - SCAN 12/03/2021 8:00 AM MONA NG WILL, BHLEX, 11/24/2021 LIVING WILL - SCAN 11/24/2021 12:29 PM JAMIE ING WILL, BHLEX, 11/24/2021 * No CPR (Do Not Attempt to Resuscitate) (Latest Code Status on File) Date Activated Date Inactivated Comments 07/25/2025 10:24 AM 08/02/2025 4:51 PM Question Answer Comments Code Status (Patient has no pulse and is not breathing): No CPR (Do Not Attempt to Resuscitate) Medical Interventions (Patie nt has pulse or is breathing): Comfort Measures Level Of Support Discussed With: PatientHealth C are Surrogate * CPR (Attempt to Resuscitate) Date Activated Date Inactivated Comments 06/25/2025 11:10 PM 07/25/2025 10:24 AM Question Answer Comments Code Status (Patient has no pulse and is not breathing): CPR (Attempt to Resuscitate) Medical Interventions (Patie nt has pulse or is breathing): Full Support Level Of Support Discussed With: Patient * CPR (Attempt to Resuscitate) Date Activated Date Inactivated Comments 06/02/2025 3:00 [...] breathing): CPR (Attempt to Resuscitate) Medical Interventions (Suki nt has pulse or is breathing): Full Support Level Of Support Discussed With: Patient Care Teams Band Cutter Relationship Specialty Start Date End Date Gustavo Leggett MD [address] [facility] [address] [place] [address] PCP - General Adolescent Medicine 07/14/23
--- OUTSIDE RECORDS SUMMARY | 2025-08-06 15:45 | XMS_ITS | Encounter Summary ---
[facility] Address [address] [place] [address] Care Team Providers Care Advanced Developer Name Role Phone Gustavo Leggett MD Primary Care Provider + [phone] Encounter Details Date Type Department Care Team (Late st Contact Info) Description 06/26/2025 Readmission Management NURSE CALL [facility] [address] [place] [address] Ana Zamorano, RN Social History Tobacco Use Types Packs/Day [...] and heating? Not hard at all 06/26/2025 [facility] - Occupational Stress Questionnaire Answer Date Recorded [...] things needed for daily living? No 06/26/2025 [facility] Utilities Answer Date Recorded In the [...] GED or equivalent No 06/26/2025 Preferred Language Slovak 06/26/2025 PHQ-2 Answer Date Recorded Patient Health Questionnaire-2 Score 1 06/26/2025 Sex and Gender Information Value Date Recorded Sex Assigned at Not on file Legal Sex Male 1:18 PM EDT Gender Identity Not on file Sexual Orientation Not on file documented as of this encounter Functional Status * AUDIT-C Score Answer Date of Assessment Author 0 06/26/2025 11:27 AM EDT Janice Reilly RN * Question Answer Date of Assessment Author Q1: How often do you have a drink containing alcohol? Never 06/26/2025 11:27 AM EDT Monalisa Reilly RN Q2: How many drinks [...] Questionnaire -2 Score 1 06/26/2025 11:27 AM EDT Monalisa Reilly RN * Question Answer Date of [...] AM EDT Kristan Burkett ms, RN * [place] Suicide Severity Rating Scale (Screener/Recent Self-Report) Question Answer Date of Assessment Author 6. Suicidal Behavior (Lifetime) No 12:57 AM EDT Kristan Morgan RN * Question Answer Date of Assessment Author Little interest or pleasure in doing things Not at all 06/26/2025 11:27 AM EDT Anna Reilly RN Feeling down, depressed, or hopeless Several days 06/26/2025 11:27 AM EDT Monalisa Reilly RN documented as of this encounter Miscellaneous Notes * Outreach Note - Ana Zamorano RN - 06/26/2025 4:06 PM EDT Ana Molina - Chary Nurse Medical Week 2 Survey Flowsheet Row [facility] Does the patient have one of the following disease processes/diagnoses(primary or secondary)? Other Week 2 attempt successful? No Unsuccessful attempts Attempt 1 Revoke Readmitted Ana Diez Nurse documented in this encounter Plan of [...] documented as of this encounter Care Teams Advanced Developer Relationship Specialty Start Date End Date Gustavo Leggett MD [facility] [address] [place] [address] PCP - General Adolescent Medicine 07/14/23 documented as of this encounter
--- OUTSIDE RECORDS SUMMARY | 2025-08-06 15:48 | XMS_ITS | Encounter Summary ---
[facility] Organization [facility] Address [address] [place] [address] Care Team Providers Care Internal Medicine Doctor Name Role Phone Gustavo Leggett MD Primary Care Provider + [phone] Encounter Details Date Type Department Care Team (Late st Contact Info) Description 08/02/2025 Readmission Management [facility] NURSE CALL CENTER [address] [place] [address] Marlyn Santoro, RN Social History [...] and heating? Not hard at all 06/26/2025 [facility] - Occupational Stress Questionnaire Answer Date [...] things needed for daily living? No 06/26/2025 [facility] Utilities Answer Date Recorded In [...] GED or equivalent No 06/26/2025 Preferred Language Sao Tomean 06/26/2025 PHQ-2 Answer Date Recorded Patient Health Questionnaire-2 Score 1 06/26/2025 Sex and Gender Information Value Date Recorded Sex Assigned at Not on file Legal Sex Male 1:18 PM EDT Gender Identity Not on file Sexual Orientation Not on file documented as of this encounter Miscellaneous Notes * Outreach Note - Marlyn Santoro RN - 08/02/2025 7:18 PM EST Prep Survey Flowsheet Row Responses [facility] score less than 10 ? No Eligibility Readm Mgmt Discharge diagnosis Wound infection Does the patient have one of the following disease processes/diagnoses(primary or secondary)? Other Does the patient have Home health ordered? Yes What is the Home health agency? [facility] Prep survey completed? 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 [address] [facility] [address] [place] [address] PCP - General Adolescent Medicine 07/14/23 documented as of this encounter
--- OUTSIDE RECORDS SUMMARY | 2025-08-06 15:48 | XMS_ITS | Encounter Summary ---
[facility] [address] [place] [address] Care Team Providers Care Manager Engagement Name Role Phone Gustavo Leggett MD Primary Care Provider + [phone] Encounter Details Date Type Department Care Team (Latest Contact Info) Description 06/25/2025 Travel Social History Tobacco Use Types Packs/Day [...] and heating? Not hard at all 06/26/2025 [facility] - Occupational Stress [...] things needed for daily living? No 06/26/2025 [facility] Utilities Answer Date Recorded In the past 12 months has th [employer], gas, oil, or water company threatened [...] GED or equivalent No 06/26/2025 Preferred Language Yemeni 06/26/2025 PHQ-2 Answer Date Recorded Patient Health [...] (rule out) 06/25/2025 06/25/202506/26 8:48 AM EDT Assessment Noted Time PHQ-2 Depression Total Score: 2 01/21/20 24 9:22 AM EDT documented as of this encounter Care Teams Manager Engagement Relationship Specialty Start Date End Date Gustavo Leggett MD [address] [facility] [address] [place] [address] PCP - General Adolescent Medicine 07/14/23 documented as of this encounter
--- OUTSIDE RECORDS SUMMARY | 2025-08-06 15:51 | XMS_ITS | Encounter Summary ---
[facility] Address [address] [place] [address] Care Team Providers Care Manager Civil Name Role Phone Gustavo Leggett MD Primary Care Provider + [phone] Encounter Details Date Type Department Care Team (Late st Contact Info) Description 08/03/2025 Readmission Management [facility] NURSE CALL CENTER [address] [place] [address] Anu Church, RN Social History Tobacco Use Types Packs/Day [...] at all 06/26/2025 [facility] - Occupational Stress Questionnaire Answer Date Recorded [...] things needed for daily living? No 06/26/2025 [facility] Utilities Answer Date Recorded In the past [...] GED or equivalent No 06/26/2025 Preferred Language Yi 06/26/2025 PHQ-2 Answer Date Recorded Patient Health Questionnaire-2 Score 1 06/26/2025 Sex and Gender Information Value Date Recorded Sex Assigned at Not on file Legal Sex Male 1:18 PM EDT Gender Identity Not on file Sexual Orientation Not on file documented as of this encounter Miscellaneous Notes * Outreach Note - Anu Church RN - 08/03/2025 11:28 AM EST Medical Week 1 Survey Flowsheet Row Responses [facility] the patient have one of the following disease processes/diagnoses(primary or secondary)? Other Week 1 attempt successful? No Unsuccessful attempts Attempt 1 ANU Vital - Registered Nurse documented in this encounter [...] as of this encounter Care Teams Manager Civil Relationship Specialty Start Date End Date Gustavo Leggett MD [address] [facility] [address] [place] [address] PCP - General Adolescent Medicine 07/14/23 documented as of this encounter
--- NOTE | 2025-08-06 16:16 | PC.NURSE ---
Patient in room and asked for his head to be raised.
--- NOTE | 2025-08-06 17:26 | PC.NURSE ---
16 f ambrose inserted using sterile technique without issue. UA sent to lab.
[2025-08-06 17:29] LABS: Microscopic, Urine URINE MICROSCOPIC (MICROSCOPIC)
[2025-08-06 17:50] LABS: Bilirubin,Urine Negative (Negative); Color,Urine YELLOW (Yellow); Glucose,Urine (UA) Negative (Negative); Ketones,Urine Negative (Negative); Leukocyte Esterase,Urine TRACE (Negative); PH,Urine 6.0 (5.0-8.5); Protein,Urine 1+ (Negative); Specific Gravity, Urine 1.015 (1.005-1.030); Urobilinogen,Urine 0.2 EU/dl (0.2)
[2025-08-06 18:08] VITALS: BP 134/65; PULSE 82; RESP 18; TEMP 36.6; O2SAT 96
[2025-08-06 18:27] LABS: RBC,Urine 50-100 #/hpf (0-3); WBC,Urine TNTC #/hpf (0-3)
[2025-08-06 18:28] LABS: Bacteria,Urine 3+ /lpf
--- NOTE | 2025-08-10 11:44 | PC.NURSE ---
Urine culture results reviewed by Dr. Bennett. Asked that I call and ask patient about any symptoms of UTI and if no symptoms, no antibiotics needed. Called patient, spoke with him, he denied any symptoms of UTI. Advised patient we would share with PCP and advised him to follow up if any further symptoms. He verbalized understanding.
== END 2025-08-06 18:39 | disposition home or self-care (01) ==
PROVIDERS: Emergency Provider Student in an Organized Health Care Education/Training Program; PCP Podiatrist
DX: T83.091A Other mechanical complication of indwelling urethral catheter, initial encounter (principal)
CPT/HCPCS: 51702; 74176; 81001; 87086; 87088; 87186; 99284